=== PATIENT | female | born 1985 | race Caucasian/White ===

== ENCOUNTER 2016-10-14 19:11 | Emergency (ER) | payer MEDICARE, MEDICAID ==
[~2016-10-14] VITALS: Ht 165.1 cm; Wt 122.5 kg
[2016-10-14] MEDS ORDERED: NYST15CR (20:04)
[2016-10-14] MEDS ORDERED: LAMO100T (20:04)
[2016-10-14] MEDS ORDERED: LUBI24CA6 (20:04)
[2016-10-14] MEDS ORDERED: METO10TA3 (20:04)
[2016-10-14] MEDS ORDERED: SUMA50TA2 (20:04)
[2016-10-14] MEDS ORDERED: LISD60CA (20:04)
[2016-10-14] MEDS ORDERED: TIZA4TAB3 (20:04)
[2016-10-14] MEDS ORDERED: HYDR-3812 (20:04)
[2016-10-14] MEDS ORDERED: RISP4TAB2 (20:04)
[2016-10-14] MEDS ORDERED: FLUO10CA19 (20:04)
[2016-10-14] MEDS ORDERED: ZOLP10TA5 (20:04)
[2016-10-14] MEDS ORDERED: BUTA1TAB9 (20:04)
[2016-10-14] MEDS ORDERED: GABA-488 (20:04)
[2016-10-14] MEDS ORDERED: ORPHENADRINE 60 MG/2 ML (NORFLEX) AMP IV STA (20:15)
[2016-10-14] MEDS ORDERED: ONDANSETRON 4 MG/2 ML (SDV) Z0FRAN IVP ONE (20:15)
[2016-10-14] MEDS ORDERED: diphenhydrAMINE 50 MG/ML INJ (BENADRYL) IV STA (20:15)
[2016-10-14] MEDS ORDERED: KETOROLAC 30 MG/ML VIAL IVP STA (20:15)
[2016-10-14] MEDS ORDERED: NS IV 1000 ML 1,000 ML IV ONE (20:15)
--- NOTE | 2016-10-14 20:19 | ED Headache ---
General Chief Complaint: Head/Cervical Problems Stated Complaint: MIGRAINE Nursing Triage Note: HEADACHE Nursing Sepsis Screen: No Definite Risk Source: patient Exam Limitations: no limitations History of Present Illness Time seen by provider: 20:19 Initial Comments 31-year-old female patient presents to the emergency department with complaints of a migraine headache. States she has frequent migraine headaches, but Fioricet is not helping today. Reports symptoms are similar to usual migraines. Patient is scheduled to see a neurologist in October. Timing/Duration: waxing and waning Severity/Quality: throbbing Location: global Prior Headaches/Recent Trauma: frequent headaches Modifying Factors: worse with exposure to light, worse with medication (no improvement with Fioricet), worse with other (exposure to sound) Allergies and Home Medications Allergies Coded Allergies: amoxicillin (Verified Allergy, Unknown, 10/14/16) clavulanic acid (Verified Allergy, Unknown, 10/14/16) quetiapine (Verified Allergy, Unknown, 10/14/16) ropinirole (Verified Allergy, Unknown, 10/14/16) Home Medications Butalb/Acetaminophen/Caffeine 1 Each Tablet, #30 (Reported) Fluoxetine HCl 10 Mg Capsule, #15 (Reported) Gabapentin 300 Mg Capsule, #270 (Reported) Hydrocodone/Acetaminophen 1 Each Tablet, #30 (Reported) Lamotrigine 100 Mg Tablet, #60 (Reported) Lisdexamfetamine Dimesylate 60 Mg Capsule, #28 (Reported) Lubiprostone 24 Mcg Capsule, #60 (Reported) Metoclopramide HCl 10 Mg Tablet, #30 (Reported) Nystatin 15 Gm Cream..g., #30 (Reported) Ondansetron 8 Mg Tab.rapdis, 8 MG PO Q6H PRN for NAUSEA/VOMITING-1ST LINE, #10 Ref 0 Prescribed by: LAYNE JIMÉNEZ on 10/14/162052 Risperidone 4 Mg Tablet, #30 (Reported) Sumatriptan Succinate 50 Mg Tablet, #9 (Reported) Tizanidine HCl 4 Mg Tablet, #90 (Reported) Zolpidem Tartrate 10 Mg Tablet, #30 (Reported) Constitutional: No dizziness, No fever, No malaise Eyes: Denies Decreased Acuity, Photophobia, Denies Vision Changes, Glasses Ears, Nose, Mouth, Throat: denies ear pain, denies ear discharge, denies nose pain, denies nose discharge, denies mouth pain, denies loose teeth, denies throat pain Respiratory: no symptoms reported Cardiovascular: no symptoms reported Gastrointestinal: No abdominal pain, No diarrhea, loss of appetite, nausea, No vomiting Genitourinary: no symptoms reported Musculoskeletal: no symptoms reported Skin: no symptoms reported Psychiatric/Neurological: Headache, Denies Numbness, Denies Paresthesia, Denies Seizure, Denies Tingling, Denies Weakness All Other Systems Reviewed Negative Unless Noted: Yes (Negative excepted noted.) Past Mfrtjee-Nzfelh-Wjzevy Hx Patient Social History Alcohol Use: Denies Use Recreational Drug Use: No Smoking Status: Current Everyday Smoker Type Used: Cigarettes 2nd Hand Smoke Exposure: Yes Recent Foreign Travel: No Contact w/Someone Who Travel: No Recent Infectious Disease Expo: No Recent Hopitalizations: No Immunizations Up To Date Tetanus Booster (TDap): Unknown Seasonal Allergies Seasonal Allergies: No Surgeries HX Surgeries: Yes Surgeries: Appendectomy, Gallbladder, Orthopedic, Tonsillectomy Respiratory Hx Respiratory Disorders: No Cardiovascular Hx Cardiac Disorders: Yes Cardiac Disorders: High Cholesterol, Hypertension Neurological Hx Neurological Disorders: Yes Neurological Disorders: Headaches /Migraines Reproductive System : No (BC IMPLANT) Genitourinary Hx Genitourinary Disorders: No Gastrointestinal Hx Gastrointestinal Disorders: Yes Gastrointestinal Disorders: Gastroesophageal Reflux Musculoskeletal Hx Musculoskeletal Disorders: Yes Musculoskeletal Disorders: Arthritis, Chronic Back Pain Endocrine Hx Endocrine Disorders: No Psychosocial Hx Psychiatric Problems: Yes Behavioral Health Disorders: Anxiety, Bipolar, Personality Disorder, Depression Reviewed Nursing Assessment Reviewed/Agree w Nursing PMH: Yes Family Medical History Significant Family History: No Pertinent Family Hx Physical Exam Vital Signs Vital Sign - Last 12Hours 10/14/16 20:05 Temp 96.9 Pulse 116 Resp 18 B/P (MAP) 142/93 Pulse Ox 98 O2 Delivery Room Air Capillary Refill : Less Than 3 Seconds General Appearance: WD/WN, no apparent distress HEENT: PERRL/EOMI, normal ENT inspection, TMs normal, pharynx normal, photophobia Neck: non-tender, full range of motion, supple, normal inspection Cardiovascular: normal peripheral pulses, regular rate, rhythm, no edema, no murmur Respiratory: lungs clear, normal breath sounds, no respiratory distress Gastrointestinal: normal bowel sounds, non tender, soft, no organomegaly Back: normal inspection Extremities: normal inspection, no pedal edema, normal capillary refill Psychiatric: alert, oriented x 3 Crainal Nerves: normal hearing, normal speech, PERRL Coordination/Gait: normal finger to nose, normal gait, negative Romberg's sign Motor/Sensory: no motor deficit, no sensory deficit, no pronator drift Skin: normal color, warm/dry Progress/Results/Core Measures Results/Orders My Orders Orders - LAYNE JIMÉNEZ Iv 1000 Ml (Sodium Chloride 0.9%) (10/14/16 20:15) Ondansetron Injection (Zofran Injectio (10/14/16 20:15) Ketorolac Injection (Toradol Injection) (10/14/16 20:15) Orphenadrine Injection (Norflex Injectio (10/14/16 20:15) Diphenhydramine Injection (Benadryl Inje (10/14/16 20:15) Ketorolac Injection (Toradol Injection) (10/14/16 20:26) Orphenadrine Injection (Norflex Injectio (10/14/16 20:26) Ondansetron Oral Dissolve Tab (Zofran (10/14/16 20:26) Diphenhydramine Injection (Benadryl Inje (10/14/16 20:26) Im/Sub-Q Injection Non-Ab Ed (10/14/16 ) Vital Signs/I&O Vital Sign - Last 12Hours 10/14/16 10/14/16 20:05 21:01 Temp 96.9 96.9 Pulse 116 115 Resp 18 18 B/P (MAP) 142/93 Pulse Ox 98 99 O2 Delivery Room Air Room Air Blood Pressure Mean: 109 Departure Communication Progress Notes Patient reports improvement in symptoms with medications. Plan for discharge to home. All return precautions were discussed with the patient as described in the discharge instructions of this report. Patient voices understanding and agrees with the treatment plan. Impression Impression: Primary Impression: Migraine Qualified Codes: G43.909 - Migraine, unspecified, not intractable, without status migrainosus Disposition: HOME, SELF-CARE Condition: Improved Departure-Patient Inst. Decision time for Depature: 20:52 Referrals: NO,LOCAL PHYSICIAN (PCP/Family) Primary Care Physician Patient Instructions: Migraine Headache (DC) Add. Discharge Instructions: All discharge instructions reviewed with patient and/or family. Voiced understanding. Continue Fioricet as instructed by your physician. Drink plenty of fluids. Tylenol extra strength [id number] as directed for pain. Ibuprofen 800 mg by mouth every 8 hours as needed for pain. Follow-up with your family practitioner for recheck if no improvement in symptoms. Follow -up with the neurologist as previously scheduled. Return to the emergency department for worsened symptoms or any other concerns. Scripts Ondansetron (Ondansetron Odt) 8 Mg Tab.rapdis 8 MG PO Q6H Y for NAUSEA/VOMITING-1ST LINE, #10 TAB 0 Refills Prov: LAYNE JIMÉNEZ 10/14/16 Work/School Note: Work Release Form Date Seen in the Emergency Department: Oct 14, 2016 Return to Work: Oct 15, 2016 Restrictions: No Restrictions LAYNE JIMÉNEZ Oct 14, 2016 20:19
[2016-10-14] MEDS ORDERED: diphenhydrAMINE 50 MG/ML INJ (BENADRYL) IM STA (20:26)
[2016-10-14] MEDS ORDERED: ONDANSETRON 4 MG (ZOFRAN) ORAL DISSOLVE TAB SL STA (20:26)
[2016-10-14] MEDS ORDERED: KETOROLAC 60 MG/2 ML VIAL IM STA (20:26)
[2016-10-14] MEDS ORDERED: ORPHENADRINE 60 MG/2 ML (NORFLEX) AMP IM STA (20:26)
[2016-10-14] MEDS ORDERED: ONDA8TAB13 PO (20:53)
[2016-10-14 21:01] VITALS: BP 124/97
== END 2016-10-14 21:00 | disposition home or self-care (01) ==
LOC: EDUNIT# 19:11 → ER 19:13
DX: G43.909 Migraine, unspecified, not intractable, without status migrainosus (principal); F41.9 Anxiety disorder, unspecified; F31.9 Bipolar disorder, unspecified; F60.89 Other specific personality disorders; M19.90 Unspecified osteoarthritis, unspecified site; K21.9 Gastro-esophageal reflux disease without esophagitis; E78.00 Pure hypercholesterolemia, unspecified; I10 Essential (primary) hypertension; F17.210 Nicotine dependence, cigarettes, uncomplicated; Z90.49 Acquired absence of other specified parts of digestive tract; Z90.89 Acquired absence of other organs
CPT/HCPCS: 96372; 99284

== ENCOUNTER 2016-10-23 17:45 | Emergency (ER) | payer MEDICARE, MEDICAID ==
[~2016-10-23] VITALS: Ht 165.1 cm; Wt 122.5 kg
[~2016-10-23 17:45] MED LIST: BUTA1TAB9; FLUO10CA19; GABA-488; HYDR-3812; LAMO100T; LISD60CA; LUBI24CA6; METO10TA3; NYST15CR; ONDA8TAB13 PO; RISP4TAB2; SUMA50TA2; TIZA4TAB3; ZOLP10TA5
[2016-10-23] MEDS ORDERED: KETOROLAC 60 MG/2 ML VIAL IM ONE (18:15)
[2016-10-23] MEDS ORDERED: diphenhydrAMINE 50 MG/ML INJ (BENADRYL) IM ONE (18:15)
[2016-10-23] MEDS ORDERED: DEXAMETHASONE PF 10 MG/ML (DECADRON) VIAL IM ONE (18:15)
[2016-10-23] MEDS ORDERED: PROCHLORPERAZINE 10 MG/2ML INJ (COMPAZINE) IM ONE (18:15)
--- NOTE | 2016-10-23 18:20 | ED Headache ---
General Chief Complaint: Head/Cervical Problems Stated Complaint: MIGRAINE Nursing Triage Note: pt ambulated to room. pt complains of a severe migraine since yesterday. pt states she gets migraines often. Nursing Sepsis Screen: No Definite Risk Source: patient Exam Limitations: no limitations History of Present Illness Time seen by provider: 18:18 Initial Comments to ER with an occipital headache that began yesterday and is associated with nausea vomiting photophobia and also worsened by loud noises. She denies fevers or chills or head injury. She has a history of migraines and this feels similar. She states that she is scheduled to see a neurologist for these. She took her Fioricet at home without relief. Timing/Duration: 24 hours Severity/Quality: severe Location: occipital Prior Headaches/Recent Trauma: occasional headaches Modifying Factors: worse with exposure to light Associated Symptoms: nausea/vomiting Allergies and Home Medications Allergies Coded Allergies: amoxicillin (Verified Allergy, Unknown, 10/14/16) clavulanic acid (Verified Allergy, Unknown, 10/14/16) quetiapine (Verified Allergy, Unknown, 10/14/16) ropinirole (Verified Allergy, Unknown, 10/14/16) Home Medications Butalb/Acetaminophen/Caffeine 1 Each Tablet, #30 (Reported) Fluoxetine HCl 10 Mg Capsule, #15 (Reported) Gabapentin 300 Mg Capsule, #270 (Reported) Hydrocodone/Acetaminophen 1 Each Tablet, #30 (Reported) Lamotrigine 100 Mg Tablet, #60 (Reported) Lisdexamfetamine Dimesylate 60 Mg Capsule, #28 (Reported) Lubiprostone 24 Mcg Capsule, #60 (Reported) Metoclopramide HCl 10 Mg Tablet, #30 (Reported) Nystatin 15 Gm Cream..g., #30 (Reported) Ondansetron 8 Mg Tab.rapdis, 8 MG PO Q6H PRN for NAUSEA/VOMITING-1ST LINE, #10 Ref 0 Prescribed by: LAYNE JIMÉNEZ on 10/14/162052 Risperidone 4 Mg Tablet, #30 (Reported) Sumatriptan Succinate 50 Mg Tablet, #9 (Reported) Tizanidine HCl 4 Mg Tablet, #90 (Reported) Zolpidem Tartrate 10 Mg Tablet, #30 (Reported) Constitutional: see HPI Eyes: No Symptoms Reported, Photophobia Ears, Nose, Mouth, Throat: no symptoms reported Respiratory: no symptoms reported Cardiovascular: no symptoms reported Genitourinary: no symptoms reported Musculoskeletal: no symptoms reported Skin: no symptoms reported Psychiatric/Neurological: See HPI, Headache Past Vfqmbtn-Zxdsyb-Nwbzrt Hx Patient Social History Alcohol Use: Denies Use Recreational Drug Use: No Smoking Status: Current Everyday Smoker Type Used: Cigarettes 2nd Hand Smoke Exposure: Yes Recent Foreign Travel: No Contact w/Someone Who Travel: No Recent Infectious Disease Expo: No Recent Hopitalizations: Yes (elbow surgery 3 weeks ago) Immunizations Up To Date Tetanus Booster (TDap): Unknown Seasonal Allergies Seasonal Allergies: No Surgeries HX Surgeries: Yes Surgeries: Appendectomy, Gallbladder, Orthopedic, Tonsillectomy Respiratory Hx Respiratory Disorders: No Cardiovascular Hx Cardiac Disorders: Yes Cardiac Disorders: High Cholesterol, Hypertension Neurological Hx Neurological Disorders: Yes Neurological Disorders: Headaches /Migraines Genitourinary Hx Genitourinary Disorders: No Gastrointestinal Hx Gastrointestinal Disorders: Yes Gastrointestinal Disorders: Gastroesophageal Reflux Musculoskeletal Hx Musculoskeletal Disorders: Yes Musculoskeletal Disorders: Arthritis, Chronic Back Pain Endocrine Hx Endocrine Disorders: No Psychosocial Hx Psychiatric Problems: Yes Behavioral Health Disorders: Anxiety, Bipolar, Personality Disorder, Depression Family Medical History Significant Family History: No Pertinent Family Hx Physical Exam Vital Signs Vital Sign - Last 12Hours 10/23/16 17:55 Temp 97.2 Pulse 99 Resp 18 B/P (MAP) 125/79 Pulse Ox 97 O2 Delivery Room Air Capillary Refill : Less Than 3 Seconds General Appearance: WD/WN, no apparent distress, obese HEENT: PERRL/EOMI, normal ENT inspection Neck: non-tender, full range of motion Cardiovascular: regular rate, rhythm, no murmur Respiratory: normal breath sounds, no respiratory distress, no accessory muscle use Gastrointestinal: normal bowel sounds, non tender, soft Extremities: normal range of motion, non-tender Psychiatric: alert, oriented x 3 Crainal Nerves: normal hearing, normal speech, PERRL Skin: normal color, warm/dry Progress/Results/Core Measures Results/Orders My Orders Orders - GALLO LUNA APRN Ketorolac Injection (Toradol Injection) (10/23/16 18:15) Dexamethasone Pf Injection (Decadron Pf (10/23/16 18:15) Prochlorperazine Injection (Compazine In (10/23/16 18:15) Diphenhydramine Injection (Benadryl Inje (10/23/16 18:15) Vital Signs/I&O Vital Sign - Last 12Hours 10/23/16 17:55 Temp 97.2 Pulse 99 Resp 18 B/P (MAP) 125/79 Pulse Ox 97 O2 Delivery Room Air Blood Pressure Mean: 94 Departure Impression Impression: Primary Impression: Headache Disposition: 01 HOME, SELF-CARE Condition: Stable Departure-Patient Inst. Decision time for Depature: 18:19 Referrals: NO,LOCAL PHYSICIAN (PCP/Family) Primary Care Physician Patient Instructions: Migraine Headache (DC) Add. Discharge Instructions: 1. Return to ER for any concerns 2. Follow-up with your doctor next week 3. All discharge instructions reviewed with patient and/or family. Voiced understanding. GALLO LUNA FORKLIFT OPERATOR Oct 23, 2016 18:20
[2016-10-23 19:17] VITALS: BP 133/85
== END 2016-10-23 19:17 | disposition home or self-care (01) ==
LOC: EDUNIT# 17:45 → ER 17:47
DX: R51 Headache (principal); F41.9 Anxiety disorder, unspecified; F31.9 Bipolar disorder, unspecified; F60.9 Personality disorder, unspecified; K21.9 Gastro-esophageal reflux disease without esophagitis; E78.00 Pure hypercholesterolemia, unspecified; I10 Essential (primary) hypertension; Z90.89 Acquired absence of other organs; Z90.49 Acquired absence of other specified parts of digestive tract
CPT/HCPCS: 99284

== ENCOUNTER 2016-11-03 10:00 | Outpatient (RCR) | payer MEDICARE, MEDICAID ==
[~2016-11-03 10:00] MED LIST changes: -BUTA1TAB9; +BUTA1TAB9 PO; -FLUO10CA19; +FLUO10CA19 PO; -GABA-488; +GABA-488 PO; -LAMO100T; +LAMO100T PO; -LISD60CA; +LISD60CA PO; -LUBI24CA6; +LUBI24CA6 PO; -RISP4TAB2; +RISP4TAB2 PO; -TIZA4TAB3; +TIZA4TAB3 PO; -ZOLP10TA5; +ZOLP10TA5 PO
[2016-11-04] MEDS ORDERED: ATOM25CA5 PO (10:48)
[2016-11-04] MEDS ORDERED: METF500T8 PO (10:48)
[2016-11-04] MEDS ORDERED: ONDA8TAB13 PO (12:05)
[2016-12-26] MEDS ORDERED: NICO-588 TD (15:01)
== END 2016-11-15 11:10 | disposition home or self-care (01) ==
DX: M25.521 Pain in right elbow (principal); Z98.890 Other specified postprocedural states

== ENCOUNTER 2016-11-04 10:17 | Emergency (ER) | payer MEDICARE, MEDICAID ==
[~2016-11-04] VITALS: Ht 165.1 cm; Wt 122.5 kg
[~2016-11-04 10:17] MED LIST changes: +BUTA1TAB9; -BUTA1TAB9 PO; +FLUO10CA19; -FLUO10CA19 PO; +GABA-488; -GABA-488 PO; +LAMO100T; -LAMO100T PO; +LUBI24CA6; -LUBI24CA6 PO; +RISP4TAB2; -RISP4TAB2 PO; +TIZA4TAB3; -TIZA4TAB3 PO; +ZOLP10TA5; -ZOLP10TA5 PO
--- OUTSIDE RECORDS SUMMARY | 2016-11-04 10:26 | XMS REPORT | Encounter Summary ---
Author Author [facility] Organization [facility] Address Unknown Phone Unavailable Care Team Providers Care Reefer Truck Driver Name Role Phone PCP Unavailable Reason for Visit * Reason Comments Pre-Visit Planning Dr Caballero 11/08/16 Encounter Details Date Type Department Care Team Description 10/25/2016 Telephone [facility] Meseret Caballero MBBS Pre-Visit Planning ([facility] Neurology [address] [facility] [place] 11/08/16) [address] [place] [address] [place] [address] [phone] Social History Tobacco Use Types Packs/Day Years Used Date Current Every Day Smoker 0.5 12 Smokeless Tobacco: Never Used Alcohol Use Drinks/Week oz/Week Comments Yes 0 Standard 0.0 drinks or equivalent Sex Assigned at Date Recorded Not on file as of this encounter Functional Status Functional Status Response Date of Assessment Does the patient have a hearing impairment: No 02/03/2016 Does the patient have a visual impairment: Yes 02/03/2016 Does the patient have impaired ambulation: Yes 02/03/2016 Does the patient have an activity of daily living No 02/03/2016 (ADL) impairment: Does the patient have an instrumental activity of Yes 02/03/2016 daily living (IADL) impairment: Cognitive Status Response Date of Assessment Does the patient have a cognitive impairment: No 02/03/2016 as of this encounter Plan of Treatment Not on fileas of this encounter Visit Diagnoses Not on filein this encounter
--- OUTSIDE RECORDS SUMMARY | 2016-11-04 10:26 | XMS REPORT ---
Author Author [facility] Medical Staff Organization [facility] Address [address] [place], [place] [id number] Phone [phone] Care Team Providers Care Rubber Calender Helper Name Role Phone DENICE OCHOA MD, PP [phone] Summary purpose TRANSITION OF CARE AUTO GENERATION Chief Complaint and Reason for Visit No authorized Reason for Visit (Admitting Diagnosis) is available for this visit. Problem list No authorized problems tracked for continuity of care are available for this visit. Encounters No authorized problems tracked for encounter diagnoses are available for this visit. Medications No medications recorded for this patient visit Allergies, adverse reactions, alerts Allergen Category Ingredient Status Reaction Severity Onset Seroquel Drug Allergy Seroquel Confirmed or Verified Seroquel Drug Allergy quetiapine Confirmed or Verified Amoxil Drug Allergy Amoxil Confirmed or Verified Amoxil Drug Allergy Amoxicillin Confirmed or Verified Augmentin Drug Allergy Augmentin Confirmed or Verified Augmentin Drug Allergy Potassium Clavulanate Confirmed or Verified Augmentin Drug Allergy Amoxicillin Confirmed or Verified Fanapt Drug Allergy Fanapt Confirmed or Verified Fanapt Drug Allergy Iloperidone Confirmed or Verified amitriptyline Drug Allergy amitriptyline Confirmed or Verified Immunizations No immunizations recorded for this patient visit Relevant diagnostic tests and/or laboratory data No authorized results are available for this patient visit History of procedures Procedure Code Code Type Description Date Performed Performing Physician [id number] CPT-4 AMBULANCE RESPONSE/TREATMENT 06-23-2015 DENICE OCHOA Functional status No functional or cognitive status observations are available for this visit. Vital signs No authorized vital signs are available for this visit. Social history No Social History or smoking status observations were recorded for this visit. ( Unknown if ever smoked.) Treatment Plan No treatment plan text is available for this visit. Hospital discharge instructions No discharge instruction text is available for this visit.
--- OUTSIDE RECORDS SUMMARY | 2016-11-04 10:26 | XMS REPORT | Clinical Summary ---
Author Author [facility] Organization [facility] Address Unknown Phone Unavailable Care Team Providers Care Solar Field Installation Crew Member Name Role Phone PCP Unavailable Source Comments Some departments are not documenting in the electronic medical record. If you do not see the information that you expected, contact Release of Information in the Health Information Management department at [phone] for further assistance in locating additional records.[facility] Allergies Active Allergy Reactions Severity Noted Date Comments Amitriptyline MENTAL STATUS CHANGES Medium 06/24/2015 Amoxicillin VOMITING Low 12/22/2014 Amoxicillin-Pot VOMITING Low 12/22/2014 Clavulanate Iloperidone PALPITATIONS Low 12/22/2014 Ropinirole SEE COMMENTS Low 06/24/2015 Makes her very weak and can not stand Quetiapine SEE COMMENTS Low 12/22/2014 Unable to swallow Current Medications Prescription Sig. Disp. Refills Start End Date Status Date omeprazole DR(+) Take 20 mg by mouth Active (PRILOSEC) 20 mg capsule daily. ranitidine(+) (ZANTAC) Take 150 mg by mouth Active 150 mg tablet twice daily. SUMAtriptan (IMITREX) 50 Take 25 mg by mouth every Active mg tablet 4 hours as needed for Migraine symptoms (up to 100mg). OXYGEN-AIR DELIVERY Use as directed. Active SYSTEMS (HORIZON NASAL CPAP SYSTEM MISC) vilazodone 10 mg tab Take by mouth daily. Active clonazePAM (KLONOPIN) 1 Take 1 mg by mouth three Active mg tablet times daily. tiZANidine (ZANAFLEX) 4 Take 1 Tab by mouth three 90 Tab 5 01/26/20 Active mg tablet times daily. 16 gabapentin (NEURONTIN) Take 900mg by mouth in 270 Cap 5 05/27/19 Active 300 mg AM, 900mg at Noon, and 17 capsuleIndications: 900mg at bedtime. NEUROPATHIC PAIN Indications: NEUROPATHIC PAIN verapamil (ISOPTIN) 80 mg Take 180 mg by mouth Active tablet twice daily. lamoTRIgine (LAMICTAL) Take 100 mg by mouth Active 100 mg tablet twice daily. lisdexamfetamine(+) Take 60 mg by mouth every Active (VYVANSE) 60 mg capsule morning zolpidem (AMBIEN) 10 mg Take 10 mg by mouth at Active tablet bedtime as needed for Sleep. risperiDONE (RISPERDAL) 4 Take 4 mg by mouth daily. Active mg tablet fluoxetine (PROZAC) 10 mg Take 10 mg by mouth every Active capsule 48 hours. Active Problems Problem Noted Date HTN (hypertension) 06/25/2015 Depression 06/25/2015 Anxiety 06/25/2015 Nonepileptic episode (HCC) 06/25/2015 Obesity, morbid, BMI 40.0-49.9 (HCC) 06/25/2015 Seizures (HCC) 06/24/2015 Convulsion (HCC) 06/24/2015 Bilateral low back pain with left-sided sciatica 12/22/2014 Encounters Date Type Specialty Care Team Description 10/30/2016 Ancillary Radiology Outpatient, Radiologist Diagnosis unknown Orders 10/25/2016 Telephone Neurology Meseret Caballero MBBS Pre-Visit Planning (Dr Caballero 11/08/16) 08/10/2016 Hospital Radiology Encounter from Last 3 Months Family History Medical History Relation Name Comments Stroke Maternal Grandfather Relation Name Status Comments Father Alive Maternal Grandfather Mother Alive Social History Tobacco Use Types Packs/Day Years Used Date Current Every Day Smoker 0.5 12 Smokeless Tobacco: Never Used Tobacco Cessation: Ready to Quit: Yes Alcohol Use Drinks/Week oz/Week Comments Yes 0 Standard 0.0 drinks or equivalent Sex Assigned at Date Recorded Not on file Last Filed Vital Signs Vital Sign Reading Time Taken Blood Pressure 125/90 07/06/2016 8:32 AM CDT Pulse 92 07/06/2016 8:32 AM CDT Temperature 36.7 C (98 F) 11/29/2015 9:40 AM CDT Respiratory Rate 16 07/06/2016 8:32 AM CDT Oxygen Saturation 98% 07/06/2016 8:32 AM CDT Inhaled Oxygen - - Concentration Weight 117.9 kg (260 lb) 07/06/2016 8:32 AM CDT Height 165.1 cm (5' 5") 07/06/2016 8:32 AM CDT Body Mass Index 43.27 07/06/2016 8:32 AM CDT Plan of Treatment Health Maintenance Due Date Last Done Comments PHYSICAL (COMPREHENSIVE) 1994 EXAM PERTUSSIS VACCINE 1998 TETANUS VACCINE 2004 CERVICAL CANCER SCREENING 2008 INFLUENZA VACCINE 11/17/2016 Results * MRI C-SPINE EXTERNAL IMAGING (08/10/2016) Narrative This order has been auto finalized and does not contain a result. from Last 3 Months
--- OUTSIDE RECORDS SUMMARY | 2016-11-04 10:26 | XMS REPORT | Encounter Summary ---
Author Author [facility] Organization [facility] Address Unknown Phone Unavailable Care Team Providers Care Dental Treatment Coordinator Name Role Phone PCP Unavailable Encounter Details Date Type Department Care Team Description 10/30/2016 Ancillary Rad Outpatient, Radiologist Diagnosis unknown Orders [address] [place] [address] Social History Tobacco Use Types Packs/Day Years [...] Treatment Not on fileas of this encounter Results * MRI C-SPINE EXTERNAL IMAGING (08/10/2016) Narrative This order has been auto finalized and does not contain a result. * CT HEAD EXTERNAL IMAGING (07/20/2015) Narrative This order has been auto finalized and does not contain a result. * CT HEAD EXTERNAL IMAGING (05/12/2015) Narrative This order has been auto finalized and does not contain a result. * MRI HEAD EXTERNAL IMAGING (03/17/2015) Narrative This order has been auto finalized and does not contain a result. * CT HEAD EXTERNAL IMAGING (03/11/2015) Narrative This order has been auto finalized and does not contain a result. in this encounter Visit Diagnoses Diagnosis Diagnosis unknown Other unknown and unspecified cause of morbidity or mortality in this encounter
--- OUTSIDE RECORDS SUMMARY | 2016-11-04 10:26 | XMS REPORT | Encounter Summary ---
Author Author [facility] Organization [facility] Address Unknown Phone Unavailable Care Team Providers Care Appliance Repair Technician Name Role Phone PCP Unavailable Encounter Details Date Type Department Care Team Description 08/10/2016 Hospital [facility] Radiology [address] [place] [address] Social History Tobacco Use Types Packs/Day Years Used Date Current Every Day Smoker 0.5 12 Sex Assigned at Date Recorded Not on [...] impairment: No 02/03/2016 as of this encounter Medications at Time of Discharge Medication Sig. Disp. Refills Start Date End Date clonazePAM (KLONOPIN) 1 Take 1 mg by mouth three mg tablet times daily. gabapentin (NEURONTIN) Take 900mg by mouth in 270 Cap 5 05/26/2016 300 mg AM, 900mg at Noon, and capsuleIndications: 900mg at bedtime. NEUROPATHIC PAIN Indications: NEUROPATHIC PAIN lamoTRIgine (LAMICTAL) Take 100 mg by mouth 100 mg tablet twice daily. lisdexamfetamine(+) Take 60 mg by mouth every (VYVANSE) 60 mg capsule morning omeprazole DR(+) Take 20 mg by mouth (PRILOSEC) 20 mg capsule daily. OXYGEN-AIR DELIVERY Use as directed. SYSTEMS (HORIZON NASAL CPAP SYSTEM MISC) ranitidine(+) (ZANTAC) Take 150 mg by mouth 150 mg tablet twice daily. risperiDONE (RISPERDAL) 4 Take 4 mg by mouth daily. mg tablet SUMAtriptan (IMITREX) 50 Take 25 mg by mouth every mg tablet 4 hours as needed for Migraine symptoms (up to 100mg). tiZANidine (ZANAFLEX) 4 Take 1 Tab by mouth three 90 Tab 5 01/26/2016 mg tablet times daily. verapamil (ISOPTIN) 80 mg Take 180 mg by mouth tablet twice daily. vilazodone 10 mg tab Take by mouth daily. zolpidem (AMBIEN) 10 mg Take 10 mg by mouth at tablet bedtime as needed for Sleep. as of this encounter Plan of Treatment Not on fileas of this encounter Results * MRI C-SPINE EXTERNAL IMAGING (08/10/2016) Narrative This order has been auto finalized and does not contain a result. in this encounter Visit Diagnoses Diagnosis Diagnosis unknown Other unknown and unspecified cause of morbidity or mortality in this encounter
--- OUTSIDE RECORDS SUMMARY | 2016-11-04 10:30 | XMS REPORT | Clinical Summary ---
Author Author Admin, E Organization [employer] Address Unknown Phone Unavailable Allergies, Adverse Reactions, Alerts Allergy Name Reaction Description Start Date Severity Status Provider REQUIP Unsure of reaction, states that she was in severe pain Critical Active Ahmet Carbajal MD AMITRIPTYLINE HCL Mood changes. LDA MA Critical Active Vishal Hui MD FANAPT heart palpitations Critical Active Vishal Hui MD SEROQUEL Critical Active Vishal Hui MD AUGMENTIN Critical Active Vishal Hui MD AMOXICILLIN Critical Active Vishal Hui MD Conditions or Problems Problem Name Problem Code Onset Date Status Entry Date Provider Comment Standard Description Annotate Asthma 493.90 Active Vishal Hui MD Asthma, unspecified Anxiety Disorder 300.00 Resolved Vishal Hui MD Anxiety state, unspecified Depression 311 Inactive Vishal Hui MD Depressive disorder, not elsewhere classified Depression/anxiety 300.4 Active Vishal Hui MD Dysthymic disorder Hypertension 401.9 Active Vishal Hui MD Unspecified essential hypertension Pneumonia, organism unspecified 486 Resolved Vishal Hui MD Pneumonia, organism unspecified Flank pain, right 789.09 Resolved Vishal Hui MD Abdominal pain, other specified site; multiple sites G E R D 530.81 Resolved Vishal Hui MD Esophageal reflux Health screening V70.0 Resolved Suzan Boo APRN Routine general medical examination at a health care facility Sinus tachycardia 427.89 Resolved Suzan Boo APRN Other specified cardiac dysrhythmias Schizoaffective disorder 295.70 Active Vishal Hui MD Schizoaffective disorder, unspecified Irritable bowel syndrome 564.1 Active Vishal Hui MD Irritable bowel syndrome Low back pain, chronic 724.2 Inactive Vishal Hui MD Lumbago Back pain, lumbar, with radiculopathy 724.4 Active Vishal Hui MD Thoracic or lumbosacral neuritis or radiculitis, unspecified Obstructive sleep apnea 327.23 Active Vishal Hui MD Obstructive sleep apnea (adult) (pediatric) Smoker/tobacco use disorder-smoking cessation discussed 305.1 Resolved Vishal Hui MD Tobacco use disorder Abdominal pain 789.00 Resolved Vishal Hui MD Abdominal pain, unspecified site Cellulitis 682.9 Resolved Vishal Hui MD Cellulitis and abscess of unspecified sites Pelvic pain 625.9 Resolved Vishal Hui MD Unspecified symptom associated with female genital organs Abscess, skin 682.9 Resolved Vishal Hui MD Cellulitis and abscess of unspecified sites Physical examination V70.0 Resolved Vishal Hui MD Routine general medical examination at a health care facility Vaginitis 616.10 Resolved Vishal Hui MD Vaginitis and vulvovaginitis, unspecified Mrsa infection 041.12 Resolved Vishal Hui MD Methicillin resistant Staphylococcus aureus infection in conditions classified elsewhere and of unspecified site Fatigue 780.79 Resolved Vishal Hui MD Other malaise and fatigue Fatigue 780.79 Resolved Vishal Hui MD Other malaise and fatigue Vitamin B12 deficiency 266.2 Active Marlena Trevino Other B-complex deficiencies Vaginitis, candidal 112.1 Resolved Vishal Hui MD Candidiasis of vulva and vagina Other abnormal blood chemistry 790.6 Resolved Vishal Hui MD Other abnormal blood chemistry Boils, recurrent 680.9 Resolved Vishal Hui MD Carbuncle and furuncle of unspecified site Postconcussion syndrome 310.2 Resolved Vishal Hui MD Postconcussion syndrome Nevus, atypical 216.9 Resolved Vishal Hui MD Benign neoplasm of skin, site unspecified Encounter for removal of sutures V58.32 Resolved Vishal Hui MD Encounter for removal of sutures Hot flashes 627.2 Resolved Vishal Hui MD Symptomatic menopausal or female climacteric states Gastroesophageal reflux disease 530.81 Active Vishal Hui MD Esophageal reflux Personality change 301.9 Resolved Vishal Hui MD Unspecified personality disorder Leukocytosis 288.60 Resolved Vishal Hui MD Leukocytosis, unspecified UTI 599.0 Resolved Vishal Hui MD Urinary tract infection, site not specified Headache, atypical 784.0 Resolved Albert Caldera MD Headache Elevated blood glucose 790.29 Resolved Vishal Hui MD Other abnormal glucose Polyarthralgia 719.49 Active Vishal Hui MD Pain in joint involving multiple sites Morbid obesity 278.01 Active Juliet Kimbrough APRN Morbid obesity 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 Active Juliet Kimbrough APRN Dependence on other enabling machines and devices Gait unsteady 781.2 Resolved Albert Caldera MD Abnormality of gait Lipoma 214.9 Resolved Albert Caldera MD Lipoma, unspecified site Abdominal pain, RUQ 789.01 Resolved Albert Caldera MD Abdominal pain, right upper quadrant Chest pain, acute 786.50 Resolved Albert Caldera MD Unspecified chest pain Localized adiposity 278.1 Resolved Vishal Hui MD Localized adiposity Shortness of breath 786.05 Resolved Vishal Hui MD Shortness of breath Nocturnal hypoxia 799.02 Resolved Suzan Boo APRN Hypoxemia Neck pain 723.1 Resolved Vishal Hui MD Cervicalgia Vaginal discharge 623.5 Resolved Vishal Hui MD Leukorrhea, not specified as infective Abdominal pain, right lower quadrant 789.03 Resolved Vishal Hui MD Abdominal pain, right lower quadrant Calf pain, left 729.5 Resolved Vishal Hui MD Pain in limb Asthma, acute 493.92 Resolved Vishal Hui MD Asthma, unspecified with (acute) exacerbation Upper respiratory infection 465.9 Resolved Suzan Boo APRN Acute upper respiratory infections of unspecified site Other fracture of upper and lower end of left fibula, initial encounter for closed fracture 823.01 Resolved Suzan Boo APRN Closed fracture of upper end of fibula Vaginal discharge 623.5 Resolved Suzan Boo APRN Leukorrhea, not specified as infective DYSURIA 788.1 Resolved Suzan Boo APRN Dysuria Contraceptive management V25.09 Active Dipika Burgos MD Encounter for other general counseling and advice on contraceptive management Cellulitis and abscess of breast 611.0 Resolved Ahmet Carbajal MD Inflammatory disease of breast Cigarette smoker 305.1 Active Ahmet Carbajal MD Tobacco use disorder Nondisplaced transverse fracture of shaft of left fibula, subsequent encounter for closed fracture with routine healing Resolved Suzan Boo APRN Bronchitis, acute 466.0 Resolved Ahmet Carbajal MD Acute bronchitis Generalized anxiety disorder 300.02 Active Ahmet Carbajal MD Generalized anxiety disorder [employer] well woman exam V72.31 Active Suzan Boo APRN Routine gynecological examination Bronchitis, acute with mild bronchospasm 466.0 Active Suzan Boo APRN Acute bronchitis Fibrocystic breast changes 610.1 Active Suzan Boo APRN Diffuse cystic 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 Suzan Boo APRN Other specified conditions influencing health status Tracheitis 464.10 Active Renzo Thornton DO Acute tracheitis without mention of obstruction Impetigo 684 Active Renzo Thornton DO Impetigo Anxiety Disorder ICD-300.00 Inactive Vishal Hui MD Pneumonia, organism unspecified ICD-486 Inactive Vishal Hui MD Flank pain, right ICD-789.09 Inactive Vishal Hui MD G E R D ICD-530.81 Inactive Vishal Hui MD Health screening ICD-V70.0 Inactive Suzan Boo APRN Sinus tachycardia ICD-427.89 Inactive Suzan Boo APRN Smoker/tobacco use disorder-smoking cessation discussed ICD-305.1 Inactive Vsihal Hui MD Abdominal pain ICD-789.00 Jim Hui MD Cellulitis ICD-682.9 Inactive Vishal Hui MD Pelvic pain ICD-625.9 Inactive Vishal Hui MD Abscess, skin ICD-682.9 Inactive Vishal Hui MD Physical examination ICD-V70.0 Jim Hui MD Vaginitis ICD-616.10 Jim Hui MD 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 Jim Hui MD Fatigue ICD-780.79 Jim Hui MD 2014 Vaginitis, candidal ICD-112.1 Jim Hui MD Other abnormal blood chemistry ICD-790.6 Jim Hui MD Boils, recurrent ICD-680.9 Jim Hui MD Postconcussion syndrome ICD-310.2 Jim Hui MD Nevus, 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 Jim Hui MD Encounter for removal of sutures ICD-V58.32 Jim Hui MD Hot flashes ICD-627.2 Jim Hui MD Personality change ICD-301.9 Jim Hui MD Leukocytosis ICD-288.60 Jim Hui MD UTI ICD-599.0 Inactive Vishal Hui MD Headache, atypical ICD-784.0 Inactive Albert Caldera MD Elevated blood glucose ICD-790.29 Inactive Vishal Hui MD Gait unsteady ICD-781.2 Inactive Albert Caldera MD Lipoma ICD-214.9 Inactive Albert Caldera MD Abdominal pain, RUQ ICD-789.01 Inactive Albert Caldera MD Chest pain, acute ICD-786.50 Inactive Albert Caldera MD Localized adiposity ICD-278.1 Inactive Vishal Hui MD Shortness of breath ICD-786.05 Inactive Vishal Hui MD Nocturnal hypoxia ICD-799.02 Inactive Suzan Boo APRN Neck pain ICD-723.1 Inactive Vishal Hui MD Vaginal discharge ICD-623.5 Inactive Vishal Hui MD Abdominal pain, right lower quadrant ICD-789.03 Inactive Vishal Hui MD Calf pain, left ICD-729.5 Inactive Vishal Hui MD Asthma, acute ICD-493.92 Inactive Vishal Hui MD Upper respiratory infection ICD-465.9 Inactive Suzan Boo APRN Other fracture of upper and lower end of left fibula, initial encounter for closed fracture ICD-823.01 Inactive Suzan Boo APRN Vaginal discharge ICD-623.5 Inactive Suzan Boo APRN DYSURIA ICD-788.1 Inactive Suzan Boo APRN Cellulitis and abscess of breast ICD-611.0 Inactive Ahmet Carbajal MD Nondisplaced transverse fracture of shaft of left fibula, subsequent encounter for closed fracture with routine healing Inactive Suzan Boo APRN Bronchitis, acute ICD-466.0 Inactive Ahmet Carbajal MD Medication List Medication Instructions Start Date Stop Date Generic Name NDC Status Provider Patient Instruction KEFLEX 500 MG CAP 1 po qid CEPHALEXIN 80538829366 Active Renzo Thornton DO Active ACETAMINOPHEN-CODEINE 120-12 MG/5ML SOLN 5 ml by mouth every 4-6 hours if needed for cough ACETAMINOPHEN-CODEINE 85631979565 Active Renzo Thornton DO Active PREDNISONE 20 MG TAB 1 tablet daily x 4 days PREDNISONE 35840026474 Active Renzo Thornton DO Active FLOVENT HFA 110 MCG/ACT AERO 2 puffs inhaled b.i.d. FLUTICASONE PROPIONATE HFA 23810845566 Active Renzo Thornton DO Active TROPICAMIDE 0.5 % OPHTH SOLN 1 drop PRN eye spasms TROPICAMIDE 42485686680 Active Samantha Stephan RMA Active RISPERDAL 4 MG ORAL TABS 1 tab at bedtime RISPERIDONE 40490494102 Active Samantha Stephan RMA Active LEVAQUIN 500 MG TABS 1 daily for infection LEVOFLOXACIN 06403775906 Active Suzan Boo APRN Active TESSALON PERLES 100 MG CAPS 1 three times a day as needed for cough BENZONATATE 66911536209 Active Suzan Boo APRN Active ZOFRAN 4 MG TABS 1 po q6hr PRN Nausea ONDANSETRON HCL No Longer Active Suzan Boo APRN Active FLUTICASONE PROPIONATE 50 MCG/ACT SUSP 2 sprays each nostril daily before bed. FLUTICASONE PROPIONATE 80145144829 No Longer Active Suzan Boo APRN Active ASPIRIN 325 MG ORAL TABS 1 tab q.d ASPIRIN 36260833373 No Longer Active Suzan Boo APRN Active HALOPERIDOL 10 MG ORAL TABS 1 tab q.d HALOPERIDOL 52907331681 No Longer Active Suzan Boo APRN Active GUAIFENESIN-CODEINE 100-10 MG/5ML SYRP 5ml every 4 to 6 hours as needed for cough GUAIFENESIN-CODEINE 31081422014 No Longer Active Suzan Boo APRN Active ZITHROMAX Z-EARNEST 250 MG TABS 2 today and then 1 daily for 4 days AZITHROMYCIN 18389317341 No Longer Active Suzan Boo APRN Active PREDNISONE 10 MG TABS 2 daily for 5 days then 1 daily for 5 days PREDNISONE 95557404617 Active Suzan Boo APRN Active CLONAZEPAM 1 MG ORAL TABS 1 twice a day and an additional 1 tablet every other day as needed for pseudoseizures or anxiety CLONAZEPAM 88171152014 Active Ahmet Carbajal MD Active HYDROCODONE-ACETAMINOPHEN 5-325 MG ORAL TABS 1 tab two times a day HYDROCODONE-ACETAMINOPHEN 51422842060 No Longer Active Ahmet Carbajal MD Active LAMICTAL 100 MG ORAL TABS 1 tab 2 times qd. LAMOTRIGINE 84087892143 Active Ahmet Carbajal MD Active PREDNISONE 20 MG TABS 2 daily for 5 days then 1 daily for 5 days PREDNISONE 17110443063 No Longer Active Ahmet Carbajal MD Active FLUTICASONE PROPIONATE 50 MCG/ACT SUSP 1 to 2 sprays each nostril daily for allergies FLUTICASONE PROPIONATE 16450294230 Active Tila Nicolas Active BENADRYL 25 MG CAP 4 po at bedtime for insomnia DIPHENHYDRAMINE HCL 59770079608 No Longer Active Ahmet Carbajal MD Active ADVAIR DISKUS 250-50 MCG/DOSE INH AEPB 1 puff twice a day for asthma FLUTICASONE-SALMETEROL 07045535603 No Longer Active Ahmet Carbajal MD Active KLONOPIN 1 MG ORAL TABS 1 tab po TID CLONAZEPAM 17294567315 No Longer Active Ahmet Carbajal MD Active ABILIFY MAINTENA 400 MG IM SUSR 400mg injection every 26 days ARIPIPRAZOLE 99586188483 No Longer Active Ahmet Carbajal MD Active TRAMADOL HCL 50 MG TABS 1/2-1 tab TID PRN TRAMADOL HCL 47875983228 No Longer Active Ahmet Carbajal MD Active BACTRIM DS 800-160 MG TABS 1 twice a day SULFAMETHOXAZOLE- TRIMETHOPRIM 38002711605 No Longer Active Ahmet Carbajal MD Active PROAIR HFA 108 (90 BASE) MCG/ACT AERS 2 puffs four times a day as needed 2015 ALBUTEROL SULFATE 84415235174 Active Ahmet Carbajal MD Active EQ NICOTINE 21 MG/24HR TRANS PT24 Apply daily to stop smoking NICOTINE 97687057193 Active Ahmet Carbajal MD Active MONISTAT 7 COMBO PACK WOODROW 100 & 2 MG-% (9GM) VAG KIT 1 applicatorful per vagina q pm x 7 MICONAZOLE NITRATE 73742482084 No Longer Active Ahmet Carbajal MD Active FLAGYL 500 MG TAB 1 tablet by mouth bid METRONIDAZOLE 73710175551 No Longer Active Ahmet Carbajal MD Active OXYCODONE HCL ER 10 MG ORAL T12A 1/2 tab by mouth every 4 hours prn OXYCODONE HCL 68772925657 No Longer Active Ahmet Carbajal MD Active METHYLPREDNISOLONE 4 MG ORAL TABS po daily METHYLPREDNISOLONE 47162493058 No Longer Active Ahmet Carbajal MD Active LEVOFLOXACIN 500 MG ORAL TABS po daily LEVOFLOXACIN 44241804594 No Longer Active Ahmet Carbajal MD Active VIIBRYD 10 MG ORAL TABS Take 1 tablet once a day VILAZODONE HCL 89853547644 No Longer Active Ahmet Carbajal MD Active TOPAMAX 50 MG ORAL TABS 1 tab twice daily TOPIRAMATE 12434419488 No Longer Active Ahmet Carbajal MD Active DICLOFENAC SODIUM 50 MG TBEC 1 tablet by mouth four times daily PRN Pain 2015 DICLOFENAC SODIUM 41871404072 No Longer Active Ahmet Carbajal MD Active ADZENYS XR-ODT 6.3 MG ORAL TBED 1 tab po daily for ADHD AMPHETAMINE 84229779613 No Longer Active Ahmet Carbajal MD Active CHANTIX 1 MG TABS 1 twice a day to help quit smoking VARENICLINE TARTRATE 13724031598 No Longer Active Dipika Burgos MD Active CHANTIX STARTING MONTH EARNEST 0.5 MG X 11 & 1 MG X 42 TABS take as directed 2015 VARENICLINE TARTRATE 80913993760 No Longer Active Dipika Burgos MD Active TESSALON PERLES 100 MG CAP 1 to 2 tablets by mouth 3 times daily as needed for cough BENZONATATE 69250191585 No Longer Active 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 APRN Active IMITREX 50 MG ORAL TABS 0.5 po x 1 PRN Headache. May repeat dose x 1 in 2 hours if needed SUMATRIPTAN SUCCINATE 48419886793 Active Ahmet Carbajal MD Active HYDROCODONE-ACETAMINOPHEN 5-325 MG TABS 1 to 2 four times a day as needed for pain use until can be seen by specialist HYDROCODONE- ACETAMINOPHEN 88020645454 No Longer Active Vishal Hui MD Active PROAIR HFA 108 (90 BASE) MCG/ACT AERS 2 puffs four times a day as needed 2015 ALBUTEROL SULFATE 45223518604 No Longer Active Vishal Hui MD Active PREDNISONE 20 MG TABS 2 daily for 5 days then 1 daily for 5 days PREDNISONE 33423392548 No Longer Active Vishal Hui MD Active ZITHROMAX Z-EARNEST 250 MG TABS 2 today and then 1 daily for 4 days AZITHROMYCIN 02877439378 No Longer Active Vishal Hui MD Active DICLOFENAC POTASSIUM TABS Take 1 tablet twice a day (pt. is not sure of the dose.) DICLOFENAC POTASSIUM TABS 13804024013 No Longer Active Vishal Hui MD Active VERAPAMIL HCL ER 120 MG ORAL CR-TABS Take 1 tablet by mouth twice a day. VERAPAMIL HCL 61370030461 Active Vishal Hui MD Active FLAGYL 500 MG TAB 1 tablet by mouth bid METRONIDAZOLE 67314634637 No Longer Active Vishal Hui MD Active VALIUM 5 MG TAB Take 1-2 tablets daily DIAZEPAM 65757664016 No Longer Active Fabiola Johnson APRN Active METOPROLOL TARTRATE 25 MG ORAL TABS 1/2 tablet twice daily for heart rate and blood pressure METOPROLOL TARTRATE 48987608353 No Longer Active Fabiola Johnson APRN Active MIRALAX ORAL POWD 17GMS DAILY IN WATER POLYETHYLENE GLYCOL 3350 81182702728 Active TAMARA Casey Active MIRALAX PACK 1 po qd PRN Constipation POLYETHYLENE GLYCOL 3350 70307526487 No Longer Active Ahmet Carbajal MD Active MINIPRESS 2 MG CAPS 4 cap po at night PRAZOSIN HCL 83305331411 No Longer Active Ahmet Carbajal MD Active PIROXICAM 20 MG CAPS 1 cap po qd PRN Pain PIROXICAM 55463962819 No Longer Active Ahmet Carbajal MD Active TRAMADOL HCL 50 MG TABS 1-2 po TID PRN Pain TRAMADOL HCL 07020861721 No Longer Active Ahmet Carbajal MD Active METOPROLOL TARTRATE 50 MG TAB 1 po bid METOPROLOL TARTRATE 95126524054 No Longer Active Ahmet Carbajal MD Active ABILIFY 15 MG ORAL TABS 1 tab daily ARIPIPRAZOLE 29655340693 No Longer Active Ahmet Carbajal MD Active PROZAC 20 MG ORAL CAPS 1 tab daily FLUOXETINE HCL 58275019866 No Longer Active Ahmet Carbajal MD Active AMBIEN 5 MG ORAL TABS 1 tab at bedtime ZOLPIDEM TARTRATE 76242809064 No Longer Active Ahmet Carbajal MD Active PREDNISONE 20 MG TAB 2 tabs daily for 4 days, 1 tab daily for 4 days, 1/2 tab daily for 4 days PREDNISONE 78236956274 No Longer Active Ahmet Carbajal MD Active KEFLEX 500 MG CAP 1 po TID x 10 days CEPHALEXIN 05250365340 No Longer Active Vishal Hui MD Active SAPHRIS 5 MG SUBL 1 po bid ASENAPINE MALEATE 59665910043 No Longer Active Jillina Frazelephraim SURVEY ENGINEER Active LATUDA 80 MG TABS Take one by mouth daily LURASIDONE HCL 62343266565 No Longer Active Jillina Frazell SURVEY ENGINEER Active AMLODIPINE BESYLATE 5 MG TABS 1 tablet by mouth daily AMLODIPINE BESYLATE 77321612933 No Longer Active Jillina Frazell SURVEY ENGINEER Active AMITRIPTYLINE HCL 100 MG TAB one at hs AMITRIPTYLINE HCL 95112110381 No Longer Active Vishal Hui MD Active TRAZODONE HCL 100 MG TAB take 1 at bedtime TRAZODONE HCL 10148880322 No Longer Active Vishal Hui MD Active VYVANSE 40 MG CAPS 1 daily, LISDEXAMFETAMINE DIMESYLATE 21658368354 No Longer Active Vishal Hui MD Active IBUPROFEN 600 MG TAB 1 po TID PRN IBUPROFEN 60025721673 No Longer Active Vishal Hui MD Active PROZAC 20 MG CAP Take one by mouth daily FLUOXETINE HCL 88866806534 No Longer Active Vishal Hui MD Active BACTRIM DS 800-160 MG TABS 1 pill by mouth twice daily SULFAMETHOXAZOLE-TRIMETHOPRIM 03976584998 No Longer Active Sahara Rodriguez MD PhD Active DIFLUCAN 150 MG TAB 1 tablet by mouth daily FLUCONAZOLE 67026475450 No Longer Active Vishal Hui MD Active TIZANIDINE HCL 4 MG TABS 1 po q6hr PRN Muscle Spasm/Back Pain TIZANIDINE HCL 78218516135 Active Vishal Hui MD Active CLINDAMYCIN HCL 150 MG CAPS 1 four times a day CLINDAMYCIN HCL 49139830624 No Longer Active Neeraj Collins MD Active KEFLEX 500 MG ORAL CAPS 1 cap QID by mouth CEPHALEXIN 85573978820 No Longer Active Neeraj Collins MD Active DIFLUCAN 150 MG TABS 1 pill every other day x 2 doses FLUCONAZOLE 61279363256 No Longer Active Sahara Rodriguez MD PhD Active MELATONIN 3 MG CAPS 2 po q hs MELATONIN 28593734479 No Longer Active Sahara Rodriguez MD PhD Active MULTIVITAMINS CAPS Take one by mouth daily MULTIPLE VITAMIN 25772487467 No Longer Active Sahara Rodriguez MD PhD Active BACTRIM DS 800-160 MG TAB 1 tab by mouth twice daily TRIMETHOPRIM-SULFAMETHOXAZOLE 05982562446 No Longer Active Sahara Rodriguez MD PhD Active [facility] PROBIOTIC ORAL CHEW 2 daily po PROBIOTIC PRODUCT 90499570477 No Longer Active Sahara Rodriguez MD PhD Active BACTRIM DS 800-160 MG TABS 1 po BID x 7 days SULFAMETHOXAZOLE-TRIMETHOPRIM 64208813551 No Longer Active Vishal Hui MD Active CHANTIX STARTING MONTH EARNEST 0.5 MG X 11 & 1 MG X 42 TABS 0.5mg daily for 3 days , then 0.5mg BID for 4 days, then 1mg BID VARENICLINE TARTRATE 36608946960 No Longer Active Lisette Scarrow, RMA Active VERAPAMIL HCL CR 120 MG TAB CR 1 po bid VERAPAMIL HCL 22911005278 No Longer Active Vishal Hui MD Active METOPROLOL SUCCINATE 50 MG TB24 1 tablet by mouth daily METOPROLOL SUCCINATE 31598946370 No Longer Active Vishal Hui MD Active SAPHRIS 10 MG SUBL 1 tab po bid ASENAPINE MALEATE 20025915185 No Longer Active Vishal Hui MD Active LISINOPRIL 20 MG TABS 1 tab po qd LISINOPRIL 21743057141 No Longer Active Vishal Hui MD Active LATUDA 20 MG TABS Take one by mouth daily LURASIDONE HCL 00310663699 No Longer Active Vishal Hui MD Active TRAZODONE HCL 50 MG TABS 1/2 tab po qd prn for anxiety TRAZODONE HCL 65923891007 No Longer Active Vishal Hui MD Active OMEPRAZOLE 20 MG TBEC 1 po q a.m. 30min prior to first food intake OMEPRAZOLE 95251878149 Active TAMARA Casey Active RANITIDINE HCL 150 MG CAPS 1 twice a day RANITIDINE HCL 95586956686 Active 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 APRN Active LINZESS 290 MCG CAPS Take one by mouth daily LINACLOTIDE 37751733737 No Longer Active Vishal Hui MD Active SAPHRIS 5 MG SUBL 1 tab po qd ASENAPINE MALEATE 05077538001 No Longer Active Vishal Hui MD Active ZALEPLON 10 MG CAPS 1 cap po every other night ZALEPLON 15395880694 No Longer Active Vishal Hui MD Active LYRICA 50 MG CAPS 1 tab po TID PREGABALIN 10128496058 No Longer Active Vishal Hui MD Active LORATADINE 10 MG TABS 1 tab po qd LORATADINE 83980294499 No Longer Active Vishal Hui MD Active VERAPAMIL HCL ER 180 MG CR-TABS 1 tab po bid VERAPAMIL HCL 18748991071 No Longer Active Vishal Hui MD Active MIRALAX POWD 1 capfull once daily POLYETHYLENE GLYCOL 3350 15299105406 No Longer Active Vishal Hui MD Active PREDNISONE 20 MG TABS 1 tab po qd PREDNISONE 29340519288 No Longer Active Renzo Thornton DO Active LEVOFLOXACIN 500 MG TABS 1 tab po qd LEVOFLOXACIN 06946659918 No Longer Active Renzo Thornton DO Active BUSPIRONE HCL 15 MG TABS 1 tab po TID BUSPIRONE HCL 08005339364 No Longer Active Renzo Thornton DO Active BENZTROPINE MESYLATE 1 MG TABS 1 tab po qd BENZTROPINE MESYLATE 63605293758 No Longer Active Renzo Thornton DO Active ATENOLOL 25 MG TABS 1 tab po qd ATENOLOL 10080258255 No Longer Active Renzo Thornton DO Active ESCITALOPRAM OXALATE 20 MG TABS 1 tab po qd ESCITALOPRAM OXALATE 47804704019 No Longer Active Renzo Thornton DO Active ADVAIR DISKUS 250-50 MCG/DOSE AEPB 1 puff BID FLUTICASONE-SALMETEROL 07117737992 No Longer Active Renzo Thornton DO Active PREDNISONE 20 MG TAB 2 tabs daily for 3 days, 1 tab daily for 3 days, 1/2 tab daily for 2 days PREDNISONE 91100708794 No Longer Active Vishal Hui MD Active CEFDINIR 300 MG CAPS by mouth twice a day CEFDINIR 33758467360 No Longer Active Vishal Hui MD Active LANSOPRAZOLE 30 MG CPDR 1 cap po qd LANSOPRAZOLE 80821988712 No Longer Active Vishal Hui MD Active BACLOFEN 20 MG TABS 1 tab po tid BACLOFEN 97937856300 No Longer Active Vishal Hui MD Active ADVAIR DISKUS 250-50 MCG/DOSE AEPB 1 puff BID ADVAIR DISKUS 250-50 MCG/DOSE AEPB FLUTICASONE-SALMETEROL Inactive ESCITALOPRAM OXALATE 20 MG TABS 1 tab po qd ESCITALOPRAM OXALATE 20 MG TABS 730679 ESCITALOPRAM OXALATE Inactive ATENOLOL 25 MG TABS 1 tab po qd ATENOLOL 25 MG TABS 462838 ATENOLOL Inactive BENZTROPINE MESYLATE 1 MG TABS 1 tab po qd BENZTROPINE MESYLATE 1 MG TABS 285732 BENZTROPINE MESYLATE Inactive BUSPIRONE HCL 15 MG TABS 1 tab po TID BUSPIRONE HCL 15 MG TABS 671258 BUSPIRONE HCL Inactive LEVOFLOXACIN 500 MG TABS 1 tab po qd LEVOFLOXACIN 500 MG TABS 175835 LEVOFLOXACIN Inactive PREDNISONE 20 MG TABS 1 tab po qd PREDNISONE 20 MG TABS 601046 PREDNISONE Inactive MIRALAX POWD 1 capfull once daily MIRALAX POWD 837818 POLYETHYLENE GLYCOL 3350 Inactive VERAPAMIL HCL ER 180 MG CR-TABS 1 tab po bid VERAPAMIL HCL ER 180 MG CR-TABS VERAPAMIL HCL Inactive LORATADINE 10 MG TABS 1 tab po qd LORATADINE 10 MG TABS 866812 LORATADINE Inactive LYRICA 50 MG CAPS 1 tab po TID LYRICA 50 MG CAPS PREGABALIN Inactive ZALEPLON 10 MG CAPS 1 cap po every other night ZALEPLON 10 MG CAPS 845892 ZALEPLON Inactive SAPHRIS 5 MG SUBL 1 tab po qd SAPHRIS 5 MG SUBL ASENAPINE MALEATE Inactive TRAZODONE HCL 50 MG TABS 1/2 tab po qd prn for anxiety TRAZODONE HCL 50 MG TABS 759831 TRAZODONE HCL Inactive LATUDA 20 MG TABS Take one by mouth daily LATUDA 20 MG TABS LURASIDONE HCL Inactive LISINOPRIL 20 MG TABS 1 tab po qd LISINOPRIL 20 MG TABS 181381 LISINOPRIL Inactive SAPHRIS 10 MG SUBL 1 tab po bid SAPHRIS 10 MG SUBL ASENAPINE MALEATE Inactive METOPROLOL SUCCINATE 50 MG TB24 1 tablet by mouth daily METOPROLOL SUCCINATE 50 MG TB24 METOPROLOL SUCCINATE Inactive VERAPAMIL HCL CR 120 MG TAB CR 1 po bid VERAPAMIL HCL CR 120 MG TAB CR VERAPAMIL HCL Inactive CHANTIX STARTING MONTH EARNEST 0.5 MG X 11 & 1 MG X 42 TABS 0.5mg daily for 3 days , then 0.5mg BID for 4 days, then 1mg BID CHANTIX STARTING MONTH EARNEST 0.5 MG X 11 & 1 MG X 42 TABS VARENICLINE TARTRATE Inactive [facility] ORAL CHEW 2 daily po [facility] PROBIOT[facility] ORAL CHEW PROBIOTIC PRODUCT Inactive BACTRIM DS 800-160 MG TAB 1 tab by mouth twice daily BACTRIM DS 800-160 MG TAB [id number] TRIMETHOPRIM-SULFAMETHOXAZOLE Inactive MULTIVITAMINS CAPS Take one by mouth daily MULTIVITAMINS CAPS MULTIPLE VITAMIN Inactive MELATONIN 3 MG CAPS 2 po q hs MELATONIN 3 MG CAPS 982256 MELATONIN Inactive KEFLEX 500 MG ORAL CAPS 1 cap QID by mouth KEFLEX 500 MG ORAL CAPS 905281 CEPHALEXIN Inactive CLINDAMYCIN HCL 150 MG CAPS 1 four times a day CLINDAMYCIN HCL 150 MG CAPS 045166 CLINDAMYCIN HCL Inactive DIFLUCAN 150 MG TAB 1 tablet by mouth daily DIFLUCAN 150 MG TAB 649673 FLUCONAZOLE Inactive PROZAC 20 MG CAP Take one by mouth daily PROZAC 20 MG CAP 328027 FLUOXETINE HCL Inactive IBUPROFEN 600 MG TAB 1 po TID PRN IBUPROFEN 600 MG TAB 779980 IBUPROFEN Inactive VYVANSE 40 MG CAPS 1 daily, VYVANSE 40 MG CAPS LISDEXAMFETAMINE DIMESYLATE Inactive TRAZODONE HCL 100 MG TAB take 1 at bedtime TRAZODONE HCL 100 MG TAB 408569 TRAZODONE HCL Inactive AMITRIPTYLINE HCL 100 MG TAB one at hs AMITRIPTYLINE HCL 100 MG TAB 823400 AMITRIPTYLINE HCL Inactive AMLODIPINE BESYLATE 5 MG TABS 1 tablet by mouth daily AMLODIPINE BESYLATE 5 MG TABS 037057 AMLODIPINE BESYLATE Inactive LATUDA 80 MG TABS Take one by mouth daily LATUDA 80 MG TABS LURASIDONE HCL Inactive SAPHRIS 5 MG SUBL 1 po bid SAPHRIS 5 MG SUBL ASENAPINE MALEATE Inactive PREDNISONE 20 MG TAB 2 tabs daily for 4 days, 1 tab daily for 4 days, 1/2 tab daily for 4 days PREDNISONE 20 MG TAB 916854 PREDNISONE Inactive AMBIEN 5 MG ORAL TABS 1 tab at bedtime AMBIEN 5 MG ORAL TABS 268771 ZOLPIDEM TARTRATE Inactive PROZAC 20 MG ORAL CAPS 1 tab daily PROZAC 20 MG ORAL CAPS 358383 FLUOXETINE HCL Inactive ABILIFY 15 MG ORAL TABS 1 tab daily ABILIFY 15 MG ORAL TABS 645985 ARIPIPRAZOLE Inactive METOPROLOL TARTRATE 50 MG TAB 1 po bid METOPROLOL TARTRATE 50 MG TAB 020672 METOPROLOL TARTRATE Inactive TRAMADOL HCL 50 MG TABS 1-2 po TID PRN Pain TRAMADOL HCL 50 MG TABS 870384 TRAMADOL HCL Inactive PIROXICAM 20 MG CAPS 1 cap po qd PRN Pain PIROXICAM 20 MG CAPS 949945 PIROXICAM Inactive MINIPRESS 2 MG CAPS 4 cap po at night MINIPRESS 2 MG CAPS 115805 PRAZOSIN HCL Inactive MIRALAX PACK 1 po qd PRN Constipation MIRALAX PACK 727032 POLYETHYLENE GLYCOL 3350 Inactive METOPROLOL TARTRATE 25 MG ORAL TABS 1/2 tablet twice daily for heart rate and blood pressure METOPROLOL TARTRATE 25 MG ORAL TABS 092177 METOPROLOL TARTRATE Inactive VALIUM 5 MG TAB Take 1-2 tablets daily VALIUM 5 MG TAB 846321 DIAZEPAM Inactive FLAGYL 500 MG TAB 1 tablet by mouth bid FLAGYL 500 MG TAB 450200 METRONIDAZOLE Inactive DICLOFENAC POTASSIUM TABS Take 1 tablet twice a day (pt. is not sure of the dose.) DICLOFENAC POTASSIUM TABS DICLOFENAC POTASSIUM TABS Inactive ZITHROMAX Z-EARNEST 250 MG TABS 2 today and then 1 daily for 4 days ZITHROMAX Z-EARNEST 250 MG TABS 3809215 AZITHROMYCIN Inactive PREDNISONE 20 MG TABS 2 daily for 5 days then 1 daily for 5 days PREDNISONE 20 MG TABS 621399 PREDNISONE Inactive PROAIR HFA 108 (90 BASE) MCG/ACT AERS 2 puffs four times a day as needed 2015 PROAIR HFA 108 (90 BASE) MCG/ACT AERS ALBUTEROL SULFATE Inactive HYDROCODONE-ACETAMINOPHEN 5-325 MG TABS 1 to 2 four times a day as needed for pain use until can be seen by specialist HYDROCODONE- ACETAMINOPHEN 5-325 MG TABS 085592 HYDROCODONE-ACETAMINOPHEN Inactive TESSALON PERLES 100 MG CAP 1 to 2 tablets by mouth 3 times daily as needed for cough TESSALON PERLES 100 MG CAP 433360 BENZONATATE Inactive CHANTIX STARTING MONTH EARNEST 0.5 MG X 11 & 1 MG X 42 TABS take as directed 2015 CHANTIX STARTING MONTH EARNEST 0.5 MG X 11 & 1 MG X 42 TABS VARENICLINE TARTRATE Inactive CHANTIX 1 MG TABS 1 twice a day to help quit smoking CHANTIX 1 MG TABS VARENICLINE TARTRATE Inactive ADZENYS XR-ODT 6.3 MG ORAL TBED 1 tab po daily for ADHD ADZENYS XR-ODT 6.3 MG ORAL TBED AMPHETAMINE Inactive DICLOFENAC SODIUM 50 MG TBEC 1 tablet by mouth four times daily PRN Pain 2015 DICLOFENAC SODIUM 50 MG TBEC 686408 DICLOFENAC SODIUM Inactive TOPAMAX 50 MG ORAL TABS 1 tab twice daily TOPAMAX 50 MG ORAL TABS 767270 TOPIRAMATE Inactive VIIBRYD 10 MG ORAL TABS Take 1 tablet once a day VIIBRYD 10 MG ORAL TABS VILAZODONE HCL Inactive LEVOFLOXACIN 500 MG ORAL TABS po daily LEVOFLOXACIN 500 MG ORAL TABS 980822 LEVOFLOXACIN Inactive METHYLPREDNISOLONE 4 MG ORAL TABS po daily METHYLPREDNISOLONE 4 MG ORAL TABS 443142 METHYLPREDNISOLONE Inactive OXYCODONE HCL ER 10 MG ORAL T12A 1/2 tab by mouth every 4 hours prn OXYCODONE HCL ER 10 MG ORAL T12A OXYCODONE HCL Inactive FLAGYL 500 MG TAB 1 tablet by mouth bid FLAGYL 500 MG TAB 421775 METRONIDAZOLE Inactive MONISTAT 7 COMBO PACK WOODROW 100 & 2 MG-% (9GM) VAG KIT 1 applicatorful per vagina q pm x 7 MONISTAT 7 COMBO PACK WOODROW 100 & 2 MG-% (9GM) VAG KIT MICONAZOLE NITRATE Inactive BACTRIM DS 800-160 MG TABS 1 twice a day BACTRIM DS 800-160 MG TABS 280565 SULFAMETHOXAZOLE-TRIMETHOPRIM Inactive TRAMADOL HCL 50 MG TABS 1/2-1 tab TID PRN TRAMADOL HCL 50 MG TABS 658069 TRAMADOL HCL Inactive ABILIFY MAINTENA 400 MG IM SUSR 400mg injection every 26 days ABILIFY MAINTENA 400 MG IM SUSR ARIPIPRAZOLE Inactive KLONOPIN 1 MG ORAL TABS 1 tab po TID KLONOPIN 1 MG ORAL TABS 650881 CLONAZEPAM Inactive ADVAIR DISKUS 250-50 MCG/DOSE INH AEPB 1 puff twice a day for asthma ADVAIR DISKUS 250-50 MCG/DOSE INH AEPB FLUTICASONE- SALMETEROL Inactive BENADRYL 25 MG CAP 4 po at bedtime for insomnia BENADRYL 25 MG CAP DIPHENHYDRAMINE HCL Inactive PREDNISONE 20 MG TABS 2 daily for 5 days then 1 daily for 5 days PREDNISONE 20 MG TABS 724893 PREDNISONE Inactive HYDROCODONE-ACETAMINOPHEN 5-325 MG ORAL TABS 1 tab two times a day HYDROCODONE-ACETAMINOPHEN 5-325 MG ORAL TABS 238097 HYDROCODONE-ACETAMINOPHEN Inactive ZITHROMAX Z-EARNEST 250 MG TABS 2 today and then 1 daily for 4 days ZITHROMAX Z-EARNEST 250 MG TABS 1552160 AZITHROMYCIN Inactive GUAIFENESIN-CODEINE 100-10 MG/5ML SYRP 5ml every 4 to 6 hours as needed for cough GUAIFENESIN-CODEINE 100-10 MG/5ML SYRP 926077 GUAIFENESIN-CODEINE Inactive HALOPERIDOL 10 MG ORAL TABS 1 tab q.d HALOPERIDOL 10 MG ORAL TABS 443926 HALOPERIDOL Inactive ASPIRIN 325 MG ORAL TABS 1 tab q.d ASPIRIN 325 MG ORAL TABS 726249 ASPIRIN Inactive FLUTICASONE PROPIONATE 50 MCG/ACT SUSP 2 sprays each nostril daily before bed. FLUTICASONE PROPIONATE 50 MCG/ACT SUSP 4185567 FLUTICASONE PROPIONATE Inactive ZOFRAN 4 MG TABS 1 po q6hr PRN Nausea ZOFRAN 4 MG TABS 997943 ONDANSETRON HCL Inactive CEFDINIR 300 MG CAPS by mouth twice a day CEFDINIR 300 MG CAPS 170006 CEFDINIR Inactive PREDNISONE 20 MG TAB 2 tabs daily for 3 days, 1 tab daily for 3 days, 1/2 tab daily for 2 days PREDNISONE 20 MG TAB 405215 PREDNISONE Inactive BACTRIM DS 800-160 MG TABS 1 po BID x 7 days BACTRIM DS 800-160 MG TABS 19820521 SULFAMETHOXAZOLE-TRIMETHOPRIM Inactive DIFLUCAN 150 MG TABS 1 pill every other day x 2 doses DIFLUCAN 150 MG TABS 656879 FLUCONAZOLE Inactive BACTRIM DS 800-160 MG TABS 1 pill by mouth twice daily BACTRIM DS 800-160 MG TABS 19820521 SULFAMETHOXAZOLE-TRIMETHOPRIM Inactive KEFLEX 500 MG CAP 1 po TID x 10 days KEFLEX 500 MG CAP 352176 CEPHALEXIN Inactive Advance Directives Directive Description Start Date DISCUSSED WITH PATIENT -- NO DECISION MADE Vital Signs Date Name Value Unit Range Description blood pressure, diastolic - 8462-4 88 mm[Hg] BP mcnally blood pressure, systolic - 8480-6 126 mm[Hg] BP sys pulse rate E&M - 8867-4 110 /min Heart rate temperature E&M 97.5 [degF] Body temperature weight E&M - 3141-9 265 [lb_av] Weight Measured blood pressure, diastolic - 8462-4 83 mm[Hg] BP mcnally blood pressure, systolic - 8480-6 115 mm[Hg] BP sys pulse rate E&M - 8867-4 116 /min Heart rate temperature E&M 97.9 [degF] Body temperature weight E&M - 3141-9 266.5 [lb_av] Weight Measured blood pressure, diastolic - 8462-4 99 mm[Hg] BP mcnally blood pressure, systolic - 8480-6 153 mm[Hg] BP sys pulse rate E&M - 8867-4 105 /min Heart rate temperature E&M 98.8 [degF] Body temperature weight E&M - 3141-9 261 [lb_av] Weight Measured blood pressure, diastolic - 8462-4 96 mm[Hg] BP mcnally blood pressure, systolic - 8480-6 126 mm[Hg] BP sys pulse rate E&M - 8867-4 115 /min Heart rate temperature E&M 97.9 [degF] Body temperature weight E&M - 3141-9 266.5 [lb_av] Weight Measured blood pressure, diastolic - 8462-4 86 mm[Hg] BP mcnally blood pressure, systolic - 8480-6 128 mm[Hg] BP sys pulse rate E&M - 8867-4 93 /min Heart rate temperature E&M 98.5 [degF] Body temperature blood pressure, diastolic - 8462-4 81 mm[Hg] BP mcnally blood pressure, systolic - 8480-6 124 mm[Hg] BP sys height E&M - 8302-2 65 [in_us] Bdy height pulse rate E&M - 8867-4 80 /min Heart rate temperature E&M 98 [degF] Body temperature weight E&M - 3141-9 267 [lb_av] Weight Measured blood pressure, diastolic - 8462-4 84 mm[Hg] BP mcnally blood pressure, systolic - 8480-6 136 mm[Hg] BP sys pulse rate E&M - 8867-4 114 /min Heart rate temperature E&M 98.2 [degF] Body temperature blood pressure, diastolic - 8462-4 74 mm[Hg] BP mcnally blood pressure, systolic - 8480-6 107 mm[Hg] BP sys pulse rate E&M - 8867-4 116 /min Heart rate temperature E&M 98.6 [degF] Body temperature blood pressure, diastolic - 8462-4 79 mm[Hg] BP mcnally blood pressure, systolic - 8480-6 112 mm[Hg] BP sys pulse rate E&M - 8867-4 101 /min Heart rate temperature E&M 98.5 [degF] Body temperature weight E&M - 3141-9 266 [lb_av] Weight Measured blood pressure, diastolic - 8462-4 61 mm[Hg] BP mcnally blood pressure, systolic - 8480-6 102 mm[Hg] BP sys pulse rate E&M - 8867-4 91 /min Heart rate temperature E&M 98.6 [degF] Body temperature weight E&M - 3141-9 267 [lb_av] Weight Measured blood pressure, diastolic - 8462-4 63 mm[Hg] BP mcnally blood pressure, systolic - 8480-6 103 mm[Hg] BP sys pulse rate E&M - 8867-4 89 /min Heart rate temperature E&M 98.6 [degF] Body temperature blood pressure, diastolic - 8462-4 73 mm[Hg] BP mcnally blood pressure, systolic - 8480-6 115 mm[Hg] BP sys pulse rate E&M - 8867-4 109 /min Heart rate temperature E&M 98.3 [degF] Body temperature blood pressure, diastolic - 8462-4 86 mm[Hg] BP mcnally blood pressure, systolic - 8480-6 121 mm[Hg] BP sys pulse rate E&M - 8867-4 102 /min Heart rate temperature E&M 98.2 [degF] Body temperature weight E&M - 3141-9 266 [lb_av] Weight Measured blood pressure, diastolic - 8462-4 89 mm[Hg] BP mcnally blood pressure, systolic - 8480-6 140 mm[Hg] BP sys pulse rate E&M - 8867-4 50 /min Heart rate temperature E&M 98.5 [degF] Body temperature weight E&M - 3141-9 273.5 [lb_av] Weight Measured blood pressure, diastolic - 8462-4 81 mm[Hg] BP mcnally blood pressure, systolic - 8480-6 131 mm[Hg] BP sys pulse rate E&M - 8867-4 108 /min Heart rate temperature E&M 98.2 [degF] Body temperature weight E&M - 3141-9 267.5 [lb_av] Weight Measured blood pressure, diastolic - 8462-4 92 mm[Hg] BP mcnally blood pressure, systolic - 8480-6 144 mm[Hg] BP sys pulse rate E&M - 8867-4 88 /min Heart rate temperature E&M 98.7 [degF] Body temperature weight E&M - 3141-9 267.5 [lb_av] Weight Measured blood pressure, diastolic - 8462-4 83 mm[Hg] BP mcnally blood pressure, systolic - 8480-6 129 mm[Hg] BP sys pulse rate E&M - 8867-4 100 /min Heart rate temperature E&M 96.6 [degF] Body temperature weight E&M - 3141-9 271 [lb_av] Weight Measured blood pressure, diastolic - 8462-4 86 mm[Hg] BP mcnally blood pressure, systolic - 8480-6 142 mm[Hg] BP sys pulse rate E&M - 8867-4 89 /min Heart rate temperature E&M 98.2 [degF] Body temperature weight E&M - 3141-9 279 [lb_av] Weight Measured blood pressure, diastolic - 8462-4 79 mm[Hg] BP mcnally blood pressure, systolic - 8480-6 114 mm[Hg] BP sys pulse rate E&M - 8867-4 99 /min Heart rate temperature E&M 97.8 [degF] Body temperature weight E&M - 3141-9 281.5 [lb_av] Weight Measured blood pressure, diastolic - 8462-4 95 mm[Hg] BP mcnally blood pressure, systolic - 8480-6 145 mm[Hg] BP sys pulse rate E&M - 8867-4 74 /min Heart rate weight E&M - 3141-9 283.5 [lb_av] Weight Measured blood pressure, diastolic - 8462-4 77 mm[Hg] BP mcnally blood pressure, systolic - 8480-6 120 mm[Hg] BP sys pulse rate E&M - 8867-4 105 /min Heart rate temperature E&M 99.6 [degF] Body temperature weight E&M - 3141-9 282.4 [lb_av] Weight Measured Diagnostic Results Date Name Value Unit Range Description Lab Report: CBC (INCLUDES DIFF/PLT)/6399, COMPREHENSIVE METABOLIC PANEL, ... - Hematology leukocyte count, blood 16.6 THOUSAND/UL 10*3/mm3 3.8-10.8 erythrocyte (RBC) count 4.46 MILLION/UL 10*6/mm3 3.80-5.10 hemoglobin, blood 13.3 g/dL 11.7-15.5 hematocrit, blood 40.7 % 35.0-45.0 mean corpuscular volume, RBC 91.4 fL 80.0-100.0 mean corpuscular hemoglobin, RBC 29.9 pg 27.0-33.0 mean corpuscular hemoglobin concentration, RBC 32.8 G/DL % 32.0- 36.0 red blood cell distribution width 12.9 % 11.0-15.0 platelet count 443 THOUSAND/UL 10*3/mm3 855-987 4231/03/01 mean platelet volume 8.2 fL 7.5-12.5 Lab Report: CBC, Thyroid Stimulating Hormone (L) - Chemistry TSH 0.62 m[iU]/mL 0.36-3.74 Lab Report: CBC, Thyroid Stimulating Hormone (L) - Hematology leukocyte count, blood 11.1 10^3/MM^3 10*3/mm3 4.6-10.2 erythrocyte (RBC) count 4.78 10^6/MM^3 10*6/mm3 4.04-5.48 hemoglobin, blood 15.3 g/dL 12.0-16.0 hematocrit, blood 45.0 % 36.0-46.0 mean corpuscular volume, RBC 94 fL 80-97 mean corpuscular hemoglobin, RBC 32.1 pg 27.0-31.2 mean corpuscular hemoglobin concentration, RBC 34.1 G/DL % 31.8- 35.4 red blood cell distribution width 11.8 % 11.6-14.8 platelet count 369 10^3/MM^3 10*3/mm3 142-424 Lab Report: Chlamydia/GC APTIMA/09443 - Lab chlamydia DNA probe NOT DETECTED NOT DETECTED Lab Report: Chlamydia/GC APTIMA/64166 - Microbiology Neisseria gonorrhoeae DNA probe NOT DETECTED NOT DETECTED Lab Report: Chlamydia/GC APTIMA/46838, Urinalysis, Complete, with Reflex ... - Lab chlamydia DNA probe NOT DETECTED NOT DETECTED Lab Report: Chlamydia/GC APTIMA/92606, Urinalysis, Complete, with Reflex ... - Microbiology Neisseria gonorrhoeae DNA probe NOT DETECTED NOT DETECTED Lab Report: Chlamydia/GC APTIMA/85306, Urinalysis, Complete, with Reflex ... - Urinalysis microalbumin/total urine volume 2 mg/L Units converted. See lab report for original value. microalbumin/creatinine ratio, urine 9 MCG/MG CREAT mg/L <30 Lab Report: Comp. Metabolic Panel - Chemistry carbon dioxide, venous blood 33.7 mmol/L 21.0-32.0 potassium, serum 5.0 mmol/L 3.5-5.2 chloride, serum 103 mmol/L 98-107 blood glucose 80 mg/dL 65-110 urea nitrogen, blood 13 mg/dL 7-18 urea nitrogen, blood 8 mg/dL 7-18 creatinine, serum 0.75 mg/dL 0.55-1.30 alanine aminotransferase (SGPT), serum 49 U/L - aspartate aminotransferase (SGOT), serum 28 U/L 15-37 calcium, serum 9.4 mg/dL 8.5-10.1 bilirubin, serum, total 0.30 mg/dL 0.00-1.00 blood glucose 95 mg/dL 65-110 chloride, serum 105 mmol/L 98-107 potassium, serum 4.0 mmol/L 3.5-5.2 carbon dioxide, venous blood 27.6 mmol/L 21.0-32.0 sodium, serum 142 mmol/L 937-649 8983/08/08 sodium, serum 140 mmol/L 531-794 1761/08/08 creatinine, serum 0.88 mg/dL 0.55-1.30 alanine aminotransferase (SGPT), serum 54 U/L -78 aspartate aminotransferase (SGOT), serum 29 U/L 15-37 calcium, serum 9.7 mg/dL 8.5-10.1 bilirubin, serum, total 0.30 mg/dL 0.00-1.00 Lab Report: UADIP W/MICRO, AUTO - Chemistry RBC, urine, dipstick 1+ Negative protein, total urine random Negative mg/dL Negative protein, total urine random Negative mg/dL Negative RBC, urine, dipstick Negative Negative Lab Report: UADIP W/MICRO, AUTO - Urinalysis urobilinogen, urine, semiquantitative (dipstick) 0.2 Normal leukocyte esterase, urine, by dipstick Trace Negative nitrite, urine, semiquantitative Negative Negative glucose, urine, semiquantitative Negative Negative ketones, urine, by test strip Negative Negative bilirubin, urine Negative Negative glucose, urine, semiquantitative Negative Negative ketones, urine, by test strip Negative Negative bilirubin, urine Negative Negative urobilinogen, urine, semiquantitative (dipstick) 0.2 Normal leukocyte esterase, urine, by dipstick Negative Negative nitrite, urine, semiquantitative Negative Negative urine color Yellow Colorless;Lightyellow;Straw;Yellow appearance, urine Clear Clear specific gravity, urine 1.025 1.000-1.030 pH, urine, semiquantitative 6.0 5.0-8.5 urine color Yellow Colorless;Lightyellow;Straw;Yellow appearance, urine Clear Clear specific gravity, urine 1.020 1.000-1.030 pH, urine, semiquantitative 6.0 5.0-8.5 Office Visit: Consult for Painful Lipoma - Basic LDL target level 100 mg/dL Office Visit: Consult for Painful Lipoma - Chemistry cholesterol, target level 200 mg/dL triglyceride, target level 200 mg/dL HDL cholesterol, serum, target level 35 mg/dL Encounters Code Encounter Date Provider Facility CPT-55886 Level 3 Est. Patient 11:04:38 CDT Renzo W Norberto [facility] CPT-88223 Level 3 Est. Patient 11:15:58 HAMMERER TAB Renzo Thornton [facility] CPT-00754 Level 3 Est. Patient 15:28:23 HAMMERER TAB Suzan Boo [facility] CPT-41601 Level 4 Est. Patient 10:20:54 HAMMERER TAB Suzan Boo [facility] CPT-88397 Level 3 Est. Patient 11:47:37 HAMMERER TAB Ahmet Carbajal MD [facility] CPT-70371 Level 3 Est. Patient 10:40:11 HAMMERER TAB Ahmet Carbajal MD [facility] CPT-18440 Level 3 Est. Patient 15:07:06 HAMMERER TAB Neeraj Collins MD [facility] CPT-90423 Level 4 Est. Patient 14:45:00 HAMMERER TAB Ahmet Carbajal MD [facility] CPT-40652 Level 3 Est. Patient 13:59:59 CDT 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 [facility] CPT-75620 Level 3 Est. Patient 18:18:53 CDT Neeraj Collins MD [facility] CPT-80799 Level 3 Est. Patient 15:50:44 CDT Vishal Hui MD [facility] CPT-45952 Level 3 Est. Patient 11:36:17 CDT Ahmet Carbajal MD [facility] CPT-14157 Level 3 Est. Patient 13:29:16 CDT Vishal Hui MD [facility] CPT-60840 Level 3 Est. Patient 14:27:52 CDT Neeraj Collins MD [facility] CPT-00550 Level 3 Est. Patient 08:56:03 CDT 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 [facility] CPT-67701 Level 4 Est. Patient 12:11:48 CDT Fabiola Johnson [facility] CPT-66367 Level 3 New Patient 16:53:37 CDT Albert Caldera MD [facility] CPT-22998 Level 3 Est. Patient 11:25:49 CDT Renzo Thornton [facility] CPT-99185 Level 3 Est. Patient 15:22:01 CDT Ahmet Carbajal MD [facility] CPT-22523 Level 4 Est. Patient 09:00:51 HAMMERER TAB Vishal Hui MD [facility] CPT-17533 Level 3 Est. Patient 11:37:33 HAMMERER TAB Vishal Hui MD [facility] CPT-04818 Level 3 Est. Patient 08:41:09 HAMMERER TAB Vishal Hui MD [facility] CPT-70237 Level 4 Est. Patient 10:19:35 HAMMERER TAB Vishal Hui MD [facility] CPT-88086 Level 3 Est. Patient 13:35:45 CDT Vishal Hui MD [facility] CPT-75782 Level 4 Est. Patient 10:08:37 CDT Vishal Hui MD [facility] CPT-19556 Level 3 Est. Patient 11:22:10 CDT Vishal Hui MD [facility] CPT-37609 Level 3 Est. Patient 11:03:32 CDT Sahara Rodriguez MD, PhD [facility] CPT-18473 Level 3 Est. Patient 09:41:35 CDT Vishal Hui MD [facility] CPT-78131 Level 3 Est. Patient 12:00:41 CDT Neeraj Collins MD [facility] CPT-90237 Level 3 Est. Patient 09:16:24 CDT Vishal Hui MD [facility] CPT-98871 Level 4 Est. Patient 13:59:09 CDT Neeraj Collins MD [facility] CPT-25664 Level 3 Est. Patient 15:19:43 CDT Renzo Thornton DO [facility] CPT-41700 Level 3 Est. Patient 18:10:26 CDT Sahara Rodriguez MD PhD [facility] CPT-79719 Level 3 Est. Patient 14:49:50 CDT Vishal Hui MD [facility] CPT-51501 Level 4 Est. Patient 18:41:46 CDT Neeraj Collins MD [facility] CPT-35704 Level 4 Est. Patient 09:18:38 HAMMERER TAB Vishal Hui MD [facility] CPT-26767 Level 3 Est. Patient 14:43:55 HAMMERER TAB Vishal Hui MD [facility] CPT-02166 Level 3 Est. Patient 15:26:33 HAMMERER TAB Sahara Rodriguez MD PhD [facility] CPT-27523 Level 3 Est. Patient 10:32:14 HAMMERER TAB Vishal Hui MD [facility] CPT-01340 Level 3 Est. Patient 15:12:52 HAMMERER TAB Vishal Hui MD [facility] CPT-63074 Level 4 Est. Patient 09:19:27 CDT Vishal Hui MD [facility] CPT-36516 Level 3 Est. Patient 15:53:00 CDT Renzo Thornton [facility] CPT-94348 Level 3 Est. Patient 15:50:30 CDT Renzo Thornton [facility] CPT-10601 Level 3 Est. Patient 16:55:24 CDT Vishal Hui MD [facility] Procedures Code Procedure Name Date Entry Date Standard Description CPT-31628 Smoking Cessation counseling 11:15:58 HAMMERER TAB CPT-G0439 [facility] Annual Wellness Exam 09:30:58 HAMMERER TAB CPT-62912 TSH - LAB USE ONLY 08:50:26 HAMMERER TAB CPT-12040 CBC - LAB USE ONLY 08:50:26 HAMMERER TAB CPT-80424 Venipuncture Draw Fee 08:50:26 HAMMERER TAB CPT-98329 Abx/Therapy Injection 17:34:30 HAMMERER TAB CPT-30536 Nexplanon Removal with Reinsertion 14:09:32 CDT CPT-J7307 Nexplanon (Implant) 14:09:32 CDT CPT-OV Office Visit 14:09:32 CDT CPT-52976 UA w micro - LAB USE ONLY 16:21:13 CDT CPT-95854 Wet Mount - LAB USE ONLY 16:21:13 CDT CPT-45654 First Vx - Ix admin for Medicare patients 14:37:47 CDT CPT-14505 Fluzone Preservative Free Intramuscular Suspension 14:37 :47 CDT CPT-12528 Abx/Therapy Injection 13:54:22 CDT CPT-24416 Abx/Therapy Injection 08:47:09 CDT CPT-84834 Abx/Therapy Injection 13:29:56 CDT CPT-59721 Abx/Therapy Injection 08:36:16 CDT CPT-25122 Wet Mount - LAB USE ONLY 17:44:58 CDT CPT-48537 UA w micro - LAB USE ONLY 17:44:58 CDT CPT-87954 CMP - LAB USE ONLY 17:44:58 CDT CPT-04186 Venipuncture Draw Fee 17:44:58 CDT CPT-02348 Cervical Min 4V - XRAY USE ONLY 09:01:40 CDT CPT-17778 Chest 2V Frontal and Lat - XRAY USE ONLY 11:06:31 CDT CPT-22865 EKG Trac and Interp - XRAY USE ONLY 11:31:43 CDT 08/26 CPT-J3420 Vitamin B12 1000mcg (Cyanocobalamin) 08:10:26 HAMMERER TAB 04/12 CPT-75994 Abx/Therapy Injection 08:10:26 HAMMERER TAB CPT-G0438 Initial Annual Wellness Exam 19:01:01 HAMMERER TAB CPT-J3420 Vitamin B12 1000mcg (Cyanocobalamin) 16:57:46 CDT 08/14 CPT-32760 Recombivax HB Injection Suspension 5 MCG/0.5ML 08:37:50 HAMMERER TAB CPT-84605 Immunization Single Admin 08:37:50 HAMMERER TAB CPT-J3420 Vitamin B12 1000mcg (Cyanocobalamin) 08:32:16 HAMMERER TAB 03/11 CPT-97914 Abx/Therapy Injection 08:32:16 HAMMERER TAB CPT-18243 Chest 2V Frontal and Lat 11:46:38 HAMMERER TAB CPT-31344 Venipuncture Draw Fee 09:12:45 HAMMERER TAB CPT-J3420 Vitamin B12 1000mcg (Cyanocobalamin) 08:50:15 HAMMERER TAB 02/08 CPT-02011 Abx/Therapy Injection 08:50:15 HAMMERER TAB CPT-Cryo Cryotherapy 10:19:35 HAMMERER TAB CPT-000 Give Appropriate Flu Vaccine 09:22:16 CDT CPT-J3420 Vitamin B12 1000mcg (Cyanocobalamin) 19:08:57 CDT 01/11 CPT-98652 Abx/Therapy Injection 19:08:57 CDT CPT-J3420 Vitamin B12 1000mcg (Cyanocobalamin) 08:19:08 CDT 12/11 CPT-04304 Abx/Therapy Injection 08:19:08 CDT CPT-J3420 Vitamin B12 1000mcg (Cyanocobalamin) 14:48:00 CDT 11/09 CPT-17511 Abx/Therapy Injection 14:47:59 CDT CPT-J3420 Vitamin B12 1000mcg (Cyanocobalamin) 08:34:04 CDT 10/09 CPT-21871 Abx/Therapy Injection 08:34:04 CDT CPT-J3420 Vitamin B12 1000mcg (Cyanocobalamin) 09:18:52 CDT 09/11 CPT-42833 Abx/Therapy Injection 09:18:52 CDT CPT-J3420 Vitamin B12 1000mcg (Cyanocobalamin) 08:35:44 CDT 09/04 CPT-33631 Abx/Therapy Injection 08:35:44 CDT CPT-29059 Immunization Single Admin 11:07:16 CDT CPT-59365 Hepatitis B adult IM 11:07:16 CDT CPT-J3420 Vitamin B12 1000mcg (Cyanocobalamin) 11:00:49 CDT 08/28 CPT-J1040 Depo Medrol 80 mg (Methyl Prednisolone Acetate) 11:00: 49 CDT CPT-21891 Abx/Therapy Injection 11:00:49 CDT CPT-J1040 Depo Medrol 80 mg (Methyl Prednisolone Acetate) 09:16: 23 CDT CPT-J3420 Vitamin B12 1000mcg (Cyanocobalamin) 08:27:05 CDT 08/20 CPT-96118 Abx/Therapy Injection 08:27:05 CDT CPT-23344 Recombivax HB Injection Suspension 5 MCG/0.5ML 10:00:41 CDT CPT-50339 Administration single or combination vaccine inc oral 10 :00:41 CDT CPT-28145 Sono transvag pelvis non OB uterus ovaries cervix 16:36: 57 CDT CPT-08037 LS spine comp w obliq 09:50:55 HAMMERER TAB CPT-57385 Abd compl w upright 09:50:55 HAMMERER TAB CPT-J1100 Decadron 4mg (Dexamethasone) 15:51:24 HAMMERER TAB CPT-J1030 Depo Medrol 40 mg (Methyl Prednisolone Acetate) 15:51: 24 HAMMERER TAB CPT-17117 Abx/Therapy Injection 15:51:24 HAMMERER TAB CPT-J1100 Decadron 4mg (Dexamethasone) 15:26:33 HAMMERER TAB CPT-J1030 Depo Medrol 40 mg (Methyl Prednisolone Acetate) 15:26: 33 HAMMERER TAB CPT-57626 Sono retroperitoneal complete kidneys and bladder 17:15: 30 CDT CPT-91562 Abd compl w upright 16:09:25 CDT CPT-J1100 Decadron 8mg (Dexamethasone) 17:07:57 CDT CPT-69175 Abx/Therapy Injection 17:07:57 CDT CPT-J1100 Decadron 8mg (Dexamethasone) 16:55:24 CDT CPT-68585 Chest 2V Frontal and Lat 16:32:44 CDT
--- OUTSIDE RECORDS SUMMARY | 2016-11-04 10:33 | XMS REPORT | Clinical Summary ---
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 Other specified cardiac dysrhythmias Schizoaffective disorder 295.70 [...] Cellulitis and abscess of breast 611.0 Resolved Ahemt Carbajal MD Inflammatory disease of breast Cigarette smoker 305.1 Active Ahmet Carbajal MD Tobacco use disorder Nondisplaced transverse fracture of shaft of left fibula, subsequent encounter for closed fracture with routine healing Resolved Suzan Boo APRN Bronchitis, acute 466.0 Resolved Ahmet Carbajal MD Acute bronchitis Generalized anxiety disorder 300.02 Active Ahmet Carbajal MD Generalized anxiety disorder [employer] well woman exam V72.31 Active Suzan Boo APRN Routine gynecological examination Bronchitis, acute with mild bronchospasm 466.0 Active Suzan Boo APRN Acute bronchitis Fibrocystic breast changes 610.1 Active Suzan Boo APRN Diffuse cystic 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 uSzan Boo APRN Other specified conditions influencing health status Tracheitis 464.10 Active Renzo Thornton DO Acute tracheitis without mention of obstruction Impetigo 684 Active Renzo Thornton DO Impetigo Furuncle of buttock 680.5 Active Suzan Boo APRN Carbuncle and furuncle of buttock Vaginal irritation 623.9 Active Suzan Boo APRN Unspecified noninflammatory disorder of vagina Scalding pain on urination 788.1 Active Suzan Boo APRN Dysuria Abdominal pain, right upper quadrant 789.01 Active Suzan Boo APRN Abdominal pain, right upper quadrant Dark urine 791.9 Active Suzan Boo APRN Other nonspecific findings on examination of urine Neck pain, chronic 723.1 Active Suzan Boo APRN Cervicalgia Preop exam V72.84 Active Suzan Boo APRN Preoperative examination, unspecified Anxiety Disorder ICD-300.00 Inactive Vishal Hui MD Pneumonia, organism unspecified ICD-486 Inactive Vishal Hui MD Flank pain, right ICD-789.09 Inactive Vishal Hui MD G E R D ICD-530.81 Inactive Vishal Hui MD Health screening ICD-V70.0 Inactive 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 Sinus tachycardia ICD-427.89 Jim Boo APRN Smoker/tobacco use disorder-smoking cessation discussed ICD-305.1 Inactive Vishal Hui MD Abdominal pain ICD-789.00 Inactive Vishal Hui MD Cellulitis ICD-682.9 Inactive Vishal Hui MD Pelvic pain ICD-625.9 Inactive Vishal Hui MD Abscess, skin ICD-682.9 Inactive Vishal Hui MD Physical examination ICD-V70.0 Inactive Vishal Hui MD Vaginitis ICD-616.10 Inactive Vishal Hui MD 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 Inactive Vishal Hui MD Fatigue ICD-780.79 Inactive Vishal Hui MD 2014 Vaginitis, candidal ICD-112.1 Jim Hui MD Other abnormal blood chemistry ICD-790.6 Inactive Vishal Hui MD Boils, recurrent ICD-680.9 Inactive Vishal Hui MD Postconcussion syndrome ICD-310.2 Inactive Vishal Hui MD Nevus, 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 Inactive Vishal Hui MD Encounter for removal of sutures ICD-V58.32 Inactive Vishal Hui MD Hot flashes ICD-627.2 Inactive Vishal Hui MD Personality change ICD-301.9 Inactive Vishal Hui MD Leukocytosis ICD-288.60 Inactive Vishal Hui MD UTI ICD-599.0 Inactive Vishal Hui [...] Generic Name NDC Status Provider Patient Instruction BACTRIM DS 800-160 MG TAB Take one (1) tablet by mouth twice a day for 5 days TRIMETHOPRIM-SULFAMETHOXAZOLE 13394106971 Active Samantha MCDONALD Active MUPIROCIN 2 % OINT apply twice a day MUPIROCIN 20126337718 No Longer Active Suzan Boo APRN Active BACTRIM DS 800-160 MG TABS 1 twice a day SULFAMETHOXAZOLE-TRIMETHOPRIM 76173107147 No Longer Active Suzan Boo APRN Active DIFLUCAN 150 MG TABS 1 by mouth for yeast FLUCONAZOLE 45792751034 No Longer Active Suzan Boo APRN Active AMITIZA 8 MCG ORAL CAPS 1 capsule twice daily LUBIPROSTONE 25397550564 Active Sheila Calderon LPN Active LINZESS 290 MCG ORAL CAPS 1 tab 30 min prior to first meal each day. LINACLOTIDE 56577739319 No Longer Active Sheila Claderon LPN Active AMITIZA 8 MCG ORAL CAPS 1 tab BID LUBIPROSTONE 83006890753 No Longer Active Lynda Xiao LPN Active LACTULOSE 10 GM/15ML ORAL SOLN 30mL oral BID for IBS-C LACTULOSE 37598537692 Active Suzan Boo APRN Active TESSALON PERLES 100 MG CAPS 1 three times a day as needed for cough BENZONATATE 74825221699 No Longer Active Suzan Boo APRN Active BACTRIM DS 800-160 MG TABS 1 twice a day SULFAMETHOXAZOLE-TRIMETHOPRIM 21915891518 No Longer Active Suzan Boo APRN Active DIFLUCAN 150 MG TABS 1 by mouth for yeast FLUCONAZOLE 71567869864 No Longer Active Suzan Boo APRN Active EQ NICOTINE 21 MG/24HR TRANS PT24 Apply daily to stop smoking NICOTINE 59957411596 No Longer Active Suzan Boo APRN Active PREDNISONE 10 MG TABS 2 daily for 5 days then 1 daily for 5 days PREDNISONE 42535785005 No Longer Active Suzan Boo APRN Active LEVAQUIN 500 MG TABS 1 daily for infection LEVOFLOXACIN 47677753403 No Longer Active Suzan Boo APRN Active TROPICAMIDE 0.5 % OPHTH SOLN 1 drop PRN eye spasms TROPICAMIDE 83918145367 No Longer Active Suzan Boo APRN Active PREDNISONE 20 MG TAB 1 tablet daily x 4 days PREDNISONE 51781387907 No Longer Active Suzan Boo APRN Active ACETAMINOPHEN-CODEINE 120-12 MG/5ML SOLN 5 ml by mouth every 4-6 hours if needed for cough ACETAMINOPHEN-CODEINE 48316861501 No Longer Active Suzan Boo APRN Active KEFLEX 500 MG CAP 1 po qid CEPHALEXIN 69141549531 No Longer Active Suzan Boo APRN Active FLOVENT HFA 110 MCG/ACT AERO 2 puffs inhaled b.i.d. FLUTICASONE PROPIONATE HFA 91459656972 Active Renzo Thornton DO Active RISPERDAL 4 MG ORAL TABS 1 tab at bedtime RISPERIDONE 57447314635 Active Samantha Rothman RMA Active ZOFRAN 4 MG TABS 1 po q6hr PRN Nausea ONDANSETRON HCL No Longer Active Suzan Boo APRN Active FLUTICASONE PROPIONATE 50 MCG/ACT SUSP 2 sprays each nostril daily before bed. FLUTICASONE PROPIONATE 01424656655 No Longer Active Suzan Boo APRN Active ASPIRIN 325 MG ORAL TABS 1 tab q.d ASPIRIN 26421225372 No Longer Active Suzan Boo APRN Active HALOPERIDOL 10 MG ORAL TABS 1 tab q.d HALOPERIDOL 09442431648 No Longer Active Suzan Boo APRN Active GUAIFENESIN-CODEINE 100-10 MG/5ML SYRP 5ml every 4 to 6 hours as needed for cough GUAIFENESIN-CODEINE 08074311558 No Longer Active Suzan Boo APRN Active ZITHROMAX Z-EARNEST 250 MG TABS 2 today and then 1 daily for 4 days AZITHROMYCIN 31672639187 No Longer Active Suzan Boo APRN Active CLONAZEPAM 1 MG ORAL TABS 1 twice a day and an additional 1 tablet every other day as needed for pseudoseizures or anxiety CLONAZEPAM 47974395332 Active Suzan Boo APRN Active HYDROCODONE-ACETAMINOPHEN 5-325 MG ORAL TABS 1 tab two times a day HYDROCODONE-ACETAMINOPHEN 54407622126 No Longer Active Ahmet Carbajal MD Active LAMICTAL 100 MG ORAL TABS 1 tab 2 times qd. LAMOTRIGINE 77933989486 Active Ahmet Carbajal MD Active PREDNISONE 20 MG TABS 2 daily for 5 days then 1 daily for 5 days PREDNISONE 27129480524 No Longer Active Ahmet Carbajal MD Active FLUTICASONE PROPIONATE 50 MCG/ACT SUSP 1 to 2 sprays each nostril daily for allergies FLUTICASONE PROPIONATE 97490510977 Active Tila Valenzuela Active BENADRYL 25 MG CAP 4 po at bedtime for insomnia DIPHENHYDRAMINE HCL 82110281873 No Longer Active Ahmet Carbajal MD Active ADVAIR DISKUS 250-50 MCG/DOSE INH AEPB 1 puff twice a day for asthma FLUTICASONE-SALMETEROL 89150228252 No Longer Active Ahmet Carbajal MD Active KLONOPIN 1 MG ORAL TABS 1 tab po TID CLONAZEPAM 27421113214 No Longer Active Ahmet Carbajal MD Active ABILIFY MAINTENA 400 MG IM SUSR 400mg injection every 26 days ARIPIPRAZOLE 07525752037 No Longer Active Ahmet Carbajal MD Active TRAMADOL HCL 50 MG TABS 1/2-1 tab TID PRN TRAMADOL HCL 88244752654 No Longer Active Ahmet Carbajal MD Active BACTRIM DS 800-160 MG TABS 1 twice a day SULFAMETHOXAZOLE- TRIMETHOPRIM 95082791419 No Longer Active Ahmet Carbajal MD Active PROAIR HFA 108 (90 BASE) MCG/ACT AERS 2 puffs four times a day as needed 2015 ALBUTEROL SULFATE 31853717726 Active 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 MONISTAT 7 COMBO PACK WOODROW 100 & 2 MG-% (9GM) VAG KIT 1 applicatorful per vagina q pm x 7 MICONAZOLE NITRATE 84202512010 No Longer Active Ahmet Carbajal MD Active FLAGYL 500 MG TAB 1 tablet by mouth bid METRONIDAZOLE 80424382842 No Longer Active Ahmet Carbajal MD Active OXYCODONE HCL ER 10 MG ORAL T12A 1/2 tab by mouth every 4 hours prn OXYCODONE HCL 43690054727 No Longer Active Ahmet Carbajal MD Active METHYLPREDNISOLONE 4 MG ORAL TABS po daily METHYLPREDNISOLONE 78611418730 No Longer Active Ahmet Carbajal MD Active LEVOFLOXACIN 500 MG ORAL TABS po daily LEVOFLOXACIN 83332827237 No Longer Active Ahmet Carbajal MD Active VIIBRYD 10 MG ORAL TABS Take 1 tablet once a day VILAZODONE HCL 84942778896 No Longer Active Ahmet Carbajal MD Active TOPAMAX 50 MG ORAL TABS 1 tab twice daily TOPIRAMATE 41259366151 No Longer Active Ahmet Carbajal MD Active DICLOFENAC SODIUM 50 MG TBEC 1 tablet by mouth four times daily PRN Pain 2015 DICLOFENAC SODIUM 21123867774 No Longer Active Ahmet Carbajal MD Active ADZENYS XR-ODT 6.3 MG ORAL TBED 1 tab po daily for ADHD AMPHETAMINE 38512453392 No Longer Active Ahmet Carbajal MD Active CHANTIX 1 MG TABS 1 twice a day to help quit smoking VARENICLINE TARTRATE 06010738256 No Longer Active Dipika Burgos MD Active CHANTIX STARTING MONTH EARNEST 0.5 MG X 11 & 1 MG X 42 TABS take as directed 2015 VARENICLINE TARTRATE 58929834325 No Longer Active Dipika Burgos MD Active TESSALON PERLES 100 MG CAP 1 to 2 tablets by mouth 3 times daily as needed for cough BENZONATATE 58387554084 No Longer Active 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 APRN Active IMITREX 50 MG ORAL TABS 0.5 po x 1 PRN Headache. May repeat dose x 1 in 2 hours if needed SUMATRIPTAN SUCCINATE 66972045772 Active Ahmet Carbajal MD Active HYDROCODONE-ACETAMINOPHEN 5-325 MG TABS 1 to 2 four times a day as needed for pain use until can be seen by specialist HYDROCODONE- ACETAMINOPHEN 30195591848 No Longer Active Vishal uHi MD Active PROAIR HFA 108 (90 BASE) MCG/ACT AERS 2 puffs four times a day as needed 2015 ALBUTEROL SULFATE 82261498594 No Longer Active Vishal Hui MD Active PREDNISONE 20 MG TABS 2 daily for 5 days then 1 daily for 5 days PREDNISONE 62644880491 No Longer Active Vishal Hui MD Active ZITHROMAX Z-EARNEST 250 MG TABS 2 today and then 1 daily for 4 days AZITHROMYCIN 96633620424 No Longer Active Vishal Hui MD Active DICLOFENAC POTASSIUM TABS Take 1 tablet twice a day (pt. is not sure of the dose.) DICLOFENAC POTASSIUM TABS 07969084499 No Longer Active Vishal Hui MD Active VERAPAMIL HCL ER 120 MG ORAL CR-TABS Take 1 tablet by mouth twice a day. VERAPAMIL HCL 73700766875 Active Vishal Hui MD Active FLAGYL 500 MG TAB 1 tablet by mouth bid METRONIDAZOLE 92019331634 No Longer Active Vishal Hui MD Active VALIUM 5 MG TAB Take 1-2 tablets daily DIAZEPAM 12804693546 No Longer Active Fabiola Johnson APRN Active METOPROLOL TARTRATE 25 MG ORAL TABS 1/2 tablet twice daily for heart rate and blood pressure METOPROLOL TARTRATE 66877201015 No Longer Active Fabiola Johnson APRN Active MIRALAX ORAL POWD 17GMS DAILY IN WATER POLYETHYLENE GLYCOL 3350 90917360106 Active TAMARA Casey Active MIRALAX PACK 1 po qd PRN Constipation POLYETHYLENE GLYCOL 3350 04310292114 No Longer Active Ahmet Carbajal MD Active MINIPRESS 2 MG CAPS 4 cap po at night PRAZOSIN HCL 36265135546 No Longer Active Ahmet Carbajal MD Active PIROXICAM 20 MG CAPS 1 cap po qd PRN Pain PIROXICAM 89486452409 No Longer Active Ahmet Carbajal MD Active TRAMADOL HCL 50 MG TABS 1-2 po TID PRN Pain TRAMADOL HCL 57621602671 No Longer Active Ahmet Carbajal MD Active METOPROLOL TARTRATE 50 MG TAB 1 po bid METOPROLOL TARTRATE 02147557185 No Longer Active Ahmet Carbajal MD Active ABILIFY 15 MG ORAL TABS 1 tab daily ARIPIPRAZOLE 51524920321 No Longer Active Ahmet Carbajal MD Active PROZAC 20 MG ORAL CAPS 1 tab daily FLUOXETINE HCL 19727293140 No Longer Active Ahmet Carbajal MD Active AMBIEN 5 MG ORAL TABS 1 tab at bedtime ZOLPIDEM TARTRATE 48634110393 No Longer Active Ahmet Carbajal MD Active PREDNISONE 20 MG TAB 2 tabs daily for 4 days, 1 tab daily for 4 days, 1/2 tab daily for 4 days PREDNISONE 01383905364 No Longer Active Ahmet Carbajal MD Active KEFLEX 500 MG CAP 1 po TID x 10 days CEPHALEXIN 02423542498 No Longer Active Vishal Hui MD Active SAPHRIS 5 MG SUBL 1 po bid ASENAPINE MALEATE 41892801005 No Longer Active 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 APRN Active LATUDA 80 MG TABS Take one by mouth daily LURASIDONE HCL 17547246950 No Longer Active 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 APRN Active AMLODIPINE BESYLATE 5 MG TABS 1 tablet by mouth daily AMLODIPINE BESYLATE 07885082436 No Longer Active 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 APRN Active AMITRIPTYLINE HCL 100 MG TAB one at hs AMITRIPTYLINE HCL 24568140318 No Longer Active Vishal Hui MD Active TRAZODONE HCL 100 MG TAB take 1 at bedtime TRAZODONE HCL 43012021900 No Longer Active Vishal Hui MD Active VYVANSE 40 MG CAPS 1 daily, LISDEXAMFETAMINE DIMESYLATE 30779806040 No Longer Active Vishal Hui MD Active IBUPROFEN 600 MG TAB 1 po TID PRN IBUPROFEN 31888054369 No Longer Active Vishal Hui MD Active PROZAC 20 MG CAP Take one by mouth daily FLUOXETINE HCL 00910598233 No Longer Active Vishal Hui MD Active BACTRIM DS 800-160 MG TABS 1 pill by mouth twice daily SULFAMETHOXAZOLE-TRIMETHOPRIM 46387943782 No Longer Active Sahara Rodriguez MD PhD Active DIFLUCAN 150 MG TAB 1 tablet by mouth daily FLUCONAZOLE 36196333787 No Longer Active Vishal Hui MD Active TIZANIDINE HCL 4 MG TABS 1 po q6hr PRN Muscle Spasm/Back Pain TIZANIDINE HCL 84136470698 Active TAMARA Casey Active CLINDAMYCIN HCL 150 MG CAPS 1 four times a day CLINDAMYCIN HCL 43236080286 No Longer Active Neeraj Collins MD Active KEFLEX 500 MG ORAL CAPS 1 cap QID by mouth CEPHALEXIN 00298208285 No Longer Active Neeraj Collins MD Active DIFLUCAN 150 MG TABS 1 pill every other day x 2 doses FLUCONAZOLE 84356133271 No Longer Active Sahara Rodriguez MD PhD Active MELATONIN 3 MG CAPS 2 po q hs MELATONIN 81526887745 No Longer Active Sahara Rodriguez MD PhD Active MULTIVITAMINS CAPS Take one by mouth daily MULTIPLE VITAMIN 10751788794 No Longer Active Sahara Rodriguez MD PhD Active BACTRIM DS 800-160 MG TAB 1 tab by mouth twice daily TRIMETHOPRIM-SULFAMETHOXAZOLE 99361348235 No Longer Active Sahara Rodriguez MD PhD Active [facility] PROBIOTIC ORAL CHEW 2 daily po PROBIOTIC PRODUCT 48527901037 No Longer Active Sahara Rodriguez MD PhD Active BACTRIM DS 800-160 MG TABS 1 po BID x 7 days SULFAMETHOXAZOLE-TRIMETHOPRIM 86840804978 No Longer Active Vishal Hui MD Active CHANTIX STARTING MONTH EARNEST 0.5 MG X 11 & 1 MG X 42 TABS 0.5mg daily for 3 days , then 0.5mg BID for 4 days, then 1mg BID VARENICLINE TARTRATE 45974706914 No Longer Active TAMARA Gray Active VERAPAMIL HCL CR 120 MG TAB CR 1 po bid VERAPAMIL HCL 09792078402 No Longer Active Vishal Hui MD Active METOPROLOL SUCCINATE 50 MG TB24 1 tablet by mouth daily METOPROLOL SUCCINATE 96812119588 No Longer Active Vishal Hui MD Active SAPHRIS 10 MG SUBL 1 tab po bid ASENAPINE MALEATE 06008032217 No Longer Active Vishal Hui MD Active LISINOPRIL 20 MG TABS 1 tab po qd LISINOPRIL 81086319319 No Longer Active Vishal Hui MD Active LATUDA 20 MG TABS Take one by mouth daily LURASIDONE HCL 68618063260 No Longer Active Vishal Hui MD Active TRAZODONE HCL 50 MG TABS 1/2 tab po qd prn for anxiety TRAZODONE HCL 65981708089 No Longer Active Vishal Hui MD Active OMEPRAZOLE 20 MG TBEC 1 po q a.m. 30min prior to first food intake OMEPRAZOLE 85331879788 Active Bertha Kirby, RMA Active RANITIDINE HCL 150 MG CAPS 1 twice a day RANITIDINE HCL 90146291048 Active Lynda Xiao [employer]UDENT [employer] DEAN Active LINZESS 290 MCG CAPS Take one by mouth daily LINACLOTIDE 32004943037 No Longer Active Vishal Hui MD Active SAPHRIS 5 MG SUBL 1 tab po qd ASENAPINE MALEATE 80213268485 No Longer Active Vishal Hui MD Active ZALEPLON 10 MG CAPS 1 cap po every other night ZALEPLON 77204188209 No Longer Active Vishal Hui MD Active LYRICA 50 MG CAPS 1 tab po TID PREGABALIN 13244249067 No Longer Active Vishal Hui MD Active LORATADINE 10 MG TABS 1 tab po qd LORATADINE 73685663277 No Longer Active Vishal Hui MD Active VERAPAMIL HCL ER 180 MG CR-TABS 1 tab po bid VERAPAMIL HCL 29434675978 No Longer Active Vishal Hui MD Active MIRALAX POWD 1 capfull once daily POLYETHYLENE GLYCOL 3350 24215690693 No Longer Active Vishal Hui MD Active PREDNISONE 20 MG TABS 1 tab po qd PREDNISONE 25139998545 No Longer Active Renzo Thornton DO Active LEVOFLOXACIN 500 MG TABS 1 tab po qd LEVOFLOXACIN 76979642090 No Longer Active Renzo Thornton DO Active BUSPIRONE HCL 15 MG TABS 1 tab po TID BUSPIRONE HCL 26074879949 No Longer Active Renzo Thornton DO Active BENZTROPINE MESYLATE 1 MG TABS 1 tab po qd BENZTROPINE MESYLATE 19245312020 No Longer Active Renzo Thornton DO Active ATENOLOL 25 MG TABS 1 tab po qd ATENOLOL 52147182551 No Longer Active Renzo Thornton DO Active ESCITALOPRAM OXALATE 20 MG TABS 1 tab po qd ESCITALOPRAM OXALATE 20121324851 No Longer Active Renzo Thornton DO Active ADVAIR DISKUS 250-50 MCG/DOSE AEPB 1 puff BID FLUTICASONE-SALMETEROL 37683434383 No Longer Active Renzo Thornton DO Active PREDNISONE 20 MG TAB 2 tabs daily for 3 days, 1 tab daily for 3 days, 1/2 tab daily for 2 days PREDNISONE 98539205927 No Longer Active Vishal Hui MD Active CEFDINIR 300 MG CAPS by mouth twice a day CEFDINIR 57356856825 No Longer Active Vishal Hui MD Active LANSOPRAZOLE 30 MG CPDR 1 cap po qd LANSOPRAZOLE 58710858237 No Longer Active Vishal Hui MD Active BACLOFEN 20 MG TABS 1 tab po tid BACLOFEN 04354761621 No Longer Active Vishal Hui MD Active ADVAIR DISKUS 250-50 MCG/DOSE AEPB 1 puff BID ADVAIR DISKUS 250-50 MCG/DOSE AEPB FLUTICASONE-SALMETEROL Inactive ESCITALOPRAM OXALATE 20 MG TABS 1 tab po qd ESCITALOPRAM OXALATE 20 MG TABS 333120 ESCITALOPRAM OXALATE Inactive ATENOLOL 25 MG TABS 1 tab po qd ATENOLOL 25 MG TABS 307383 ATENOLOL Inactive BENZTROPINE MESYLATE 1 MG TABS 1 tab po qd BENZTROPINE MESYLATE 1 MG TABS 136220 BENZTROPINE MESYLATE Inactive BUSPIRONE HCL 15 MG TABS 1 tab po TID BUSPIRONE HCL 15 MG TABS 041580 BUSPIRONE HCL Inactive LEVOFLOXACIN 500 MG TABS 1 tab po qd LEVOFLOXACIN 500 MG TABS 257744 LEVOFLOXACIN Inactive PREDNISONE 20 MG TABS 1 tab po qd PREDNISONE 20 MG TABS 545136 PREDNISONE Inactive MIRALAX POWD 1 capfull once daily MIRALAX POWD 551044 POLYETHYLENE GLYCOL 3350 Inactive VERAPAMIL HCL ER 180 MG CR-TABS 1 tab po bid VERAPAMIL HCL ER 180 MG CR-TABS VERAPAMIL HCL Inactive LORATADINE 10 MG TABS 1 tab po qd LORATADINE 10 MG TABS 969190 LORATADINE Inactive LYRICA 50 MG CAPS 1 tab po TID LYRICA 50 MG CAPS PREGABALIN Inactive ZALEPLON 10 MG CAPS 1 cap po every other night ZALEPLON 10 MG CAPS 917592 ZALEPLON Inactive SAPHRIS 5 MG SUBL 1 tab po qd SAPHRIS 5 MG SUBL ASENAPINE MALEATE Inactive TRAZODONE HCL 50 MG TABS 1/2 tab po qd prn for anxiety TRAZODONE HCL 50 MG TABS 610348 TRAZODONE HCL Inactive LATUDA 20 MG TABS Take one by mouth daily LATUDA 20 MG TABS LURASIDONE HCL Inactive LISINOPRIL 20 MG TABS 1 tab po qd LISINOPRIL 20 MG TABS 290466 LISINOPRIL Inactive SAPHRIS 10 MG SUBL 1 [...] twice daily BACTRIM DS 800-160 MG TAB 894198 TRIMETHOPRIM-SULFAMETHOXAZOLE Inactive MULTIVITAMINS CAPS Take one by mouth daily MULTIVITAMINS CAPS MULTIPLE VITAMIN Inactive MELATONIN 3 MG CAPS 2 po q hs MELATONIN 3 MG CAPS 689675 MELATONIN Inactive KEFLEX 500 MG ORAL CAPS 1 cap QID by mouth KEFLEX 500 MG ORAL CAPS 983695 CEPHALEXIN Inactive CLINDAMYCIN HCL 150 MG CAPS 1 four times a day CLINDAMYCIN HCL 150 MG CAPS 051146 CLINDAMYCIN HCL Inactive DIFLUCAN 150 MG TAB 1 tablet by mouth daily DIFLUCAN 150 MG TAB 060455 FLUCONAZOLE Inactive PROZAC 20 MG CAP Take one by mouth daily PROZAC 20 MG CAP 522218 FLUOXETINE HCL Inactive IBUPROFEN 600 MG TAB 1 po TID PRN IBUPROFEN 600 MG TAB 036664 IBUPROFEN Inactive VYVANSE 40 MG CAPS 1 daily, VYVANSE 40 MG CAPS LISDEXAMFETAMINE DIMESYLATE Inactive TRAZODONE HCL 100 MG TAB take 1 at bedtime TRAZODONE HCL 100 MG TAB 359620 TRAZODONE HCL Inactive AMITRIPTYLINE HCL 100 MG TAB one at hs AMITRIPTYLINE HCL 100 MG TAB 713280 AMITRIPTYLINE HCL Inactive AMLODIPINE BESYLATE 5 MG TABS 1 tablet by mouth daily AMLODIPINE BESYLATE 5 MG TABS 085372 AMLODIPINE BESYLATE Inactive LATUDA 80 MG TABS Take one by mouth daily LATUDA 80 MG TABS LURASIDONE HCL Inactive SAPHRIS 5 MG SUBL 1 po bid SAPHRIS 5 MG SUBL ASENAPINE MALEATE Inactive PREDNISONE 20 MG TAB 2 tabs daily for 4 days, 1 tab daily for 4 days, 1/2 tab daily for 4 days PREDNISONE 20 MG TAB 209503 PREDNISONE Inactive AMBIEN 5 MG ORAL TABS 1 tab at bedtime AMBIEN 5 MG ORAL TABS 044276 ZOLPIDEM TARTRATE Inactive PROZAC 20 MG ORAL CAPS 1 tab daily PROZAC 20 MG ORAL CAPS 809918 FLUOXETINE HCL Inactive ABILIFY 15 MG ORAL TABS 1 tab daily ABILIFY 15 MG ORAL TABS 028204 ARIPIPRAZOLE Inactive METOPROLOL TARTRATE 50 MG TAB 1 po bid METOPROLOL TARTRATE 50 MG TAB 997111 METOPROLOL TARTRATE Inactive TRAMADOL HCL 50 MG TABS 1-2 po TID PRN Pain TRAMADOL HCL 50 MG TABS 062401 TRAMADOL HCL Inactive PIROXICAM 20 MG CAPS 1 cap po qd PRN Pain PIROXICAM 20 MG CAPS 822076 PIROXICAM Inactive MINIPRESS 2 MG CAPS 4 cap po at night MINIPRESS 2 MG CAPS 522605 PRAZOSIN HCL Inactive MIRALAX PACK 1 po qd PRN Constipation MIRALAX PACK 109830 POLYETHYLENE GLYCOL 3350 Inactive METOPROLOL TARTRATE 25 MG ORAL TABS 1/2 tablet twice daily for heart rate and blood pressure METOPROLOL TARTRATE 25 MG ORAL TABS 591877 METOPROLOL TARTRATE Inactive VALIUM 5 MG TAB Take 1-2 tablets daily VALIUM 5 MG TAB 469143 DIAZEPAM Inactive FLAGYL 500 MG TAB 1 tablet by mouth bid FLAGYL 500 MG TAB 902085 METRONIDAZOLE Inactive DICLOFENAC POTASSIUM TABS Take 1 tablet twice a day (pt. is not sure of the dose.) DICLOFENAC POTASSIUM TABS DICLOFENAC POTASSIUM TABS Inactive ZITHROMAX Z-EARNEST 250 MG TABS 2 today and then 1 daily for 4 days ZITHROMAX Z-EARNEST 250 MG TABS 1745342 AZITHROMYCIN Inactive PREDNISONE 20 MG TABS 2 daily for 5 days then 1 daily for 5 days PREDNISONE 20 MG TABS 113670 PREDNISONE Inactive PROAIR HFA 108 (90 BASE) MCG/ACT AERS 2 puffs four times a day as needed 2015 PROAIR HFA 108 (90 BASE) MCG/ACT AERS ALBUTEROL SULFATE Inactive HYDROCODONE-ACETAMINOPHEN 5-325 MG TABS 1 to 2 four times a day as needed for pain use until can be seen by specialist HYDROCODONE- ACETAMINOPHEN 5-325 MG TABS 811653 HYDROCODONE-ACETAMINOPHEN Inactive TESSALON PERLES 100 MG CAP 1 to 2 tablets by mouth 3 times daily as needed for cough TESSALON PERLES 100 MG CAP 512992 BENZONATATE Inactive CHANTIX STARTING MONTH EARNEST 0.5 [...] Pain 2015 DICLOFENAC SODIUM 50 MG TBEC 214719 DICLOFENAC SODIUM Inactive TOPAMAX 50 MG ORAL TABS 1 tab twice daily TOPAMAX 50 MG ORAL TABS 714550 TOPIRAMATE Inactive VIIBRYD 10 MG ORAL TABS Take 1 tablet once a day VIIBRYD 10 MG ORAL TABS VILAZODONE HCL Inactive LEVOFLOXACIN 500 MG ORAL TABS po daily LEVOFLOXACIN 500 MG ORAL TABS 748285 LEVOFLOXACIN Inactive METHYLPREDNISOLONE 4 MG ORAL TABS po daily METHYLPREDNISOLONE 4 MG ORAL TABS 882934 METHYLPREDNISOLONE Inactive OXYCODONE HCL ER 10 MG ORAL T12A 1/2 tab by mouth every 4 hours prn OXYCODONE HCL ER 10 MG ORAL T12A OXYCODONE HCL Inactive FLAGYL 500 MG TAB 1 tablet by mouth bid FLAGYL 500 MG TAB 595152 METRONIDAZOLE Inactive MONISTAT 7 COMBO PACK WOODROW 100 & 2 MG-% (9GM) VAG KIT 1 applicatorful per vagina q pm x 7 MONISTAT 7 COMBO PACK WOODROW 100 & 2 MG-% (9GM) VAG KIT MICONAZOLE NITRATE Inactive BACTRIM DS 800-160 MG TABS 1 twice a day BACTRIM DS 800-160 MG TABS 497388 SULFAMETHOXAZOLE-TRIMETHOPRIM Inactive TRAMADOL HCL 50 MG TABS 1/2-1 tab TID PRN TRAMADOL HCL 50 MG TABS 457444 TRAMADOL HCL Inactive ABILIFY MAINTENA 400 MG IM SUSR 400mg injection every 26 days ABILIFY MAINTENA 400 MG IM SUSR ARIPIPRAZOLE Inactive KLONOPIN 1 MG ORAL TABS 1 tab po TID KLONOPIN 1 MG ORAL TABS 414836 CLONAZEPAM Inactive ADVAIR DISKUS 250-50 MCG/DOSE INH AEPB 1 puff twice a day for asthma ADVAIR DISKUS 250-50 MCG/DOSE INH AEPB FLUTICASONE- SALMETEROL Inactive BENADRYL 25 MG CAP 4 po at bedtime for insomnia BENADRYL 25 MG CAP DIPHENHYDRAMINE HCL Inactive PREDNISONE 20 MG TABS 2 daily for 5 days then 1 daily for 5 days PREDNISONE 20 MG TABS [id number] PREDNISONE Inactive HYDROCODONE-ACETAMINOPHEN 5-325 MG ORAL TABS 1 tab two times a day HYDROCODONE-ACETAMINOPHEN 5-325 MG ORAL TABS 267650 HYDROCODONE-ACETAMINOPHEN Inactive ZITHROMAX Z-EARNEST 250 MG TABS 2 today and then 1 daily for 4 days ZITHROMAX Z-EARNEST 250 MG TABS [id number] AZITHROMYCIN Inactive GUAIFENESIN-CODEINE 100-10 MG/5ML SYRP 5ml every 4 to 6 hours as needed for cough GUAIFENESIN-CODEINE 100-10 MG/5ML SYRP 664805 GUAIFENESIN-CODEINE Inactive HALOPERIDOL 10 MG ORAL TABS 1 tab q.d HALOPERIDOL 10 MG ORAL TABS 240263 HALOPERIDOL Inactive ASPIRIN 325 MG ORAL TABS 1 tab q.d ASPIRIN 325 MG ORAL TABS 294513 ASPIRIN Inactive FLUTICASONE PROPIONATE 50 MCG/ACT SUSP 2 sprays each nostril daily before bed. FLUTICASONE PROPIONATE 50 MCG/ACT SUSP [id number] FLUTICASONE PROPIONATE Inactive ZOFRAN 4 MG TABS 1 po q6hr PRN Nausea ZOFRAN 4 MG TABS 491576 ONDANSETRON HCL Inactive KEFLEX 500 MG CAP 1 po qid KEFLEX 500 MG CAP 708165 CEPHALEXIN Inactive ACETAMINOPHEN-CODEINE 120-12 MG/5ML SOLN 5 ml by mouth every 4-6 hours if needed for cough ACETAMINOPHEN-CODEINE 120-12 MG/5ML SOLN 745821 ACETAMINOPHEN-CODEINE Inactive PREDNISONE 20 MG TAB 1 tablet daily x 4 days PREDNISONE 20 MG TAB 611799 PREDNISONE Inactive TROPICAMIDE 0.5 % OPHTH SOLN 1 drop PRN eye spasms TROPICAMIDE 0.5 % OPHTH SOLN 050767 TROPICAMIDE Inactive LEVAQUIN 500 MG TABS 1 daily for infection LEVAQUIN 500 MG TABS 887757 LEVOFLOXACIN Inactive PREDNISONE 10 MG TABS 2 daily for 5 days then 1 daily for 5 days PREDNISONE 10 MG TABS 254155 PREDNISONE Inactive EQ NICOTINE 21 MG/24HR TRANS PT24 Apply daily to stop smoking EQ NICOTINE 21 MG/24HR TRANS PT24 NICOTINE Inactive DIFLUCAN 150 MG TABS 1 by mouth for yeast DIFLUCAN 150 MG TABS 316495 FLUCONAZOLE Inactive BACTRIM DS 800-160 MG TABS 1 twice a day BACTRIM DS 800-160 MG TABS 19820521 SULFAMETHOXAZOLE-TRIMETHOPRIM Inactive TESSALON PERLES 100 MG CAPS 1 three times a day as needed for cough TESSALON PERLES 100 MG CAPS 455869 BENZONATATE Inactive AMITIZA 8 MCG ORAL CAPS 1 tab BID AMITIZA 8 MCG ORAL CAPS LUBIPROSTONE Inactive LINZESS 290 MCG ORAL CAPS 1 tab 30 min prior to first meal each day. LINZESS 290 MCG ORAL CAPS LINACLOTIDE Inactive DIFLUCAN 150 MG TABS 1 by mouth for yeast DIFLUCAN 150 MG TABS 19751126 FLUCONAZOLE Inactive BACTRIM DS 800-160 MG TABS 1 twice a day BACTRIM DS 800-160 MG TABS 19820521 SULFAMETHOXAZOLE-TRIMETHOPRIM Inactive MUPIROCIN 2 % OINT apply twice a day MUPIROCIN 2 % OINT 026222 MUPIROCIN Inactive CEFDINIR 300 MG CAPS by mouth twice a day CEFDINIR 300 MG CAPS 160962 CEFDINIR Inactive PREDNISONE 20 MG TAB 2 tabs daily for 3 days, 1 tab daily for 3 days, 1/2 tab daily for 2 days PREDNISONE 20 MG TAB 789126 PREDNISONE Inactive BACTRIM DS 800-160 MG TABS 1 po BID x 7 days BACTRIM DS 800-160 MG TABS 19820521 SULFAMETHOXAZOLE-TRIMETHOPRIM Inactive DIFLUCAN 150 MG TABS 1 pill every other day x 2 doses DIFLUCAN 150 MG TABS 19751126 FLUCONAZOLE Inactive BACTRIM DS 800-160 MG TABS 1 pill by mouth twice daily BACTRIM DS 800-160 MG TABS 19820521 SULFAMETHOXAZOLE-TRIMETHOPRIM Inactive KEFLEX 500 MG CAP 1 po TID x 10 days KEFLEX 500 MG CAP 936410 CEPHALEXIN Inactive Advance Directives Directive Description Start Date DISCUSSED WITH PATIENT -- NO DECISION MADE Vital Signs Date Name Value Unit Range Description blood pressure, diastolic - 8462-4 90 mm[Hg] BP mcnally blood pressure, systolic - 8480-6 136 mm[Hg] BP sys height E&M - 8302-2 65 [in_us] Bdy height pulse rate E&M - 8867-4 82 /min Heart rate temperature E&M 98.9 [degF] Body temperature weight E&M - 3141-9 260.5 [lb_av] Weight Measured blood pressure, diastolic - 8462-4 87 mm[Hg] BP mcnally blood pressure, systolic - 8480-6 126 mm[Hg] BP sys height E&M - 8302-2 65 [in_us] Bdy height pulse rate E&M - 8867-4 89 /min Heart rate temperature E&M 97.8 [degF] Body temperature weight E&M - 3141-9 269 [lb_av] Weight Measured blood pressure, diastolic - 8462-4 93 mm[Hg] BP mcnally blood pressure, systolic - 8480-6 144 mm[Hg] BP sys pulse rate E&M - 8867-4 100 /min Heart rate temperature E&M 97.5 [degF] Body temperature weight E&M - 3141-9 268.5 [lb_av] Weight Measured blood pressure, diastolic - 8462-4 80 mm[Hg] BP mcnally blood pressure, systolic - 8480-6 126 mm[Hg] BP sys pulse rate E&M - 8867-4 96 /min Heart rate temperature E&M 97.5 [degF] Body temperature weight E&M - 3141-9 267 [lb_av] Weight Measured blood pressure, diastolic - 8462-4 88 mm[Hg] [...] E&M - 3141-9 279 [lb_av] Weight Measured Diagnostic Results Date Name Value Unit Range Description Lab Report: CBC - Hematology leukocyte count, blood 11.0 10^3/MM^3 10*3/mm3 4.6-10.2 erythrocyte (RBC) count 4.65 10^6/MM^3 10*6/mm3 3.80-5.80 hemoglobin, blood 14.7 g/dL 12.0-16.0 hematocrit, blood 42.4 % 37.0-47.0 mean corpuscular volume, RBC 91 fL 80-97 mean corpuscular hemoglobin, RBC 31.7 pg 27.0-31.2 mean corpuscular hemoglobin concentration, RBC 34.8 G/DL % 31.8- 35.4 red blood cell distribution width 12.0 % 13.0-18.0 platelet count 381 10^3/MM^3 10*3/mm3 142-424 Lab Report: CBC (INCLUDES DIFF/PLT)/6399, COMPREHENSIVE METABOLIC [...] % 11.0-15.0 platelet count 443 THOUSAND/UL 10*3/mm3 187-504 3955/03/01 mean platelet volume 8.2 fL 7.5-12.5 leukocyte count, blood 8.4 THOUSAND/UL 10*3/mm3 3.8-10.8 erythrocyte (RBC) count 4.30 MILLION/UL 10*6/mm3 3.80-5.10 hemoglobin, blood 13.5 g/dL 11.7-15.5 hematocrit, blood 39.8 % 35.0-45.0 mean corpuscular volume, RBC 92.5 fL 80.0-100.0 mean corpuscular hemoglobin, RBC 31.4 pg 27.0-33.0 mean corpuscular hemoglobin concentration, RBC 33.9 G/DL % 32.0- 36.0 red blood cell distribution width 13.3 % 11.0-15.0 platelet count 349 THOUSAND/UL 10*3/mm3 643-773 7831/04/12 mean platelet volume 8.4 fL 7.5-12.5 Lab Report: CBC, Thyroid Stimulating [...] 369 10^3/MM^3 10*3/mm3 142-424 Lab Report: Chlamydia/GC APTIMA/29740 - Lab chlamydia DNA probe NOT DETECTED NOT DETECTED Lab Report: Chlamydia/GC APTIMA/41905 - Microbiology Neisseria gonorrhoeae DNA probe NOT DETECTED NOT DETECTED Lab Report: Chlamydia/GC APTIMA/59801, Urinalysis, Complete, with Reflex ... - Lab chlamydia DNA probe NOT DETECTED NOT DETECTED Lab Report: Chlamydia/GC APTIMA/41829, Urinalysis, Complete, with Reflex ... - Microbiology Neisseria gonorrhoeae DNA probe NOT DETECTED NOT DETECTED Lab Report: Chlamydia/GC APTIMA/39825, Urinalysis, Complete, with Reflex ... - Urinalysis microalbumin/total urine volume 2 mg/L Units converted. See lab report for original value. microalbumin/creatinine ratio, urine 9 MCG/MG CREAT mg/L <30 Lab Report: Comp. Metabolic Panel - Chemistry sodium, serum 140 mmol/L 862-529 0085/08/08 carbon dioxide, venous blood 33.7 mmol/L 21.0-32.0 potassium, serum 5.0 mmol/L 3.5-5.2 chloride, serum 103 mmol/L 98-107 blood glucose 80 mg/dL 65-110 urea nitrogen, blood 13 mg/dL 7-18 creatinine, serum 0.88 mg/dL 0.55-1.30 alanine aminotransferase (SGPT), serum 54 U/L 12-78 aspartate aminotransferase (SGOT), serum 29 U/L 15-37 calcium, serum 9.7 mg/dL 8.5-10.1 bilirubin, serum, total 0.30 mg/dL 0.00-1.00 sodium, serum 140 mmol/L 007-535 1691/06/28 carbon dioxide, venous blood 23.8 mmol/L 21.0-32.0 potassium, serum 3.8 mmol/L 3.5-5.2 chloride, serum 104 mmol/L 98-107 blood glucose 78 mg/dL 65-110 urea nitrogen, blood 12 mg/dL 7-18 creatinine, serum 0.86 mg/dL 0.55-1.30 alanine aminotransferase (SGPT), serum 38 U/L -78 aspartate aminotransferase (SGOT), serum 17 U/L 15-37 calcium, serum 9.3 mg/dL 8.5-10.1 bilirubin, serum, total 0.20 mg/dL 0.00-1.00 Lab Report: HEPATITIS PANEL, ACUTE W/REFLE - Chemistry hepatitis B surface antigen NON-REACTIVE NON-REACTIVE Lab Report: UADIP W/MICRO, AUTO - Chemistry RBC, urine, dipstick Negative Negative protein, total urine random Trace mg/dL Negative RBC, urine, dipstick Negative Negative RBC, urine, dipstick 1+ Negative protein, total urine random Negative mg/dL Negative protein, total urine random Negative mg/dL Negative protein, total urine random Negative mg/dL Negative RBC, urine, dipstick Trace-intact Negative Lab Report: UADIP W/MICRO, AUTO - Urinalysis urobilinogen, urine, semiquantitative (dipstick) 0.2 E.U./dL Normal leukocyte esterase, urine, by dipstick Negative Negative nitrite, urine, semiquantitative Negative Negative glucose, urine, semiquantitative Negative Negative ketones, urine, by test strip Negative Negative bilirubin, urine Negative Negative urine color Yellow Colorless;Lightyellow;Straw;Yellow appearance, urine Clear Clear specific gravity, urine <=1.005 1.000-1.030 pH, urine, semiquantitative 5.5 5.0-8.5 glucose, urine, semiquantitative Negative Negative ketones, urine, [...] 1.020 1.000-1.030 pH, urine, semiquantitative 6.0 5.0-8.5 urobilinogen, urine, semiquantitative (dipstick) 0.2 E.U./dL Normal leukocyte esterase, urine, by dipstick Negative Negative nitrite, urine, semiquantitative Negative Negative glucose, urine, semiquantitative Negative Negative ketones, urine, by test strip 1+ Negative bilirubin, urine 1+ Negative urobilinogen, urine, semiquantitative (dipstick) 0.2 Normal leukocyte esterase, urine, by dipstick Trace Negative nitrite, urine, semiquantitative Negative Negative urine color Yellow Colorless;Lightyellow;Straw;Yellow appearance, urine Clear Clear specific gravity, urine >=1.030 1.000-1.030 pH, urine, semiquantitative 5.0 5.0-8.5 Encounters Code Encounter Date Provider Facility CPT-64711 Level 3 Est. [facility]55[facility] 10:49:34 [facility] Level 3 Est[facility] Patient 10:00:25 [facility] Level 3 Est. Patient 10:29:30 CDT Suzan Boo [facility] CPT-97508 Level 3 Est. Patient 11:04:38 CDT Renzo Thornton [facility] CPT-32095 Level 3 Est. Patient 11:15:58 [employer] Renzo Thornton [facility] CPT-19789 Level 3 Est. Patient 15:28:23 [employer] Suzan Boo [facility] CPT-86865 Level 4 Est. Patient 10:20:54 [employer] Suzan Boo [facility] CPT-31897 Level 3 Est. Patient 11:47:37 [employer] Ahmet Carbajal MD [facility] CPT-27347 Level 3 Est. Patient 10:40:11 [employer] Ahmet Carbajal MD [facility] CPT-90297 Level 3 Est. Patient 15:07:06 [employer] Neeraj Collins MD [facility] CPT-77555 Level 4 Est. Patient 14:45:00 [employer] Ahmet Carbajal MD [facility] CPT-75379 Level 3 Est. Patient 13:59:59 CDT 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 [facility] CPT-44766 Level 3 Est. Patient 18:18:53 CDT Neeraj Collins MD [facility] CPT-89110 Level 3 Est. Patient 15:50:44 CDT Vishal Hui MD [facility] CPT-20907 Level 3 Est. Patient 11:36:17 CDT Ahmet Carbajal MD [facility] CPT-91003 Level 3 Est. Patient 13:29:16 CDT Vishal Hui MD [facility] CPT-05201 Level 3 Est. Patient 14:27:52 CDT Neeraj Collins MD [facility] CPT-49266 Level 3 Est. Patient 08:56:03 CDT 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 [facility] CPT-99739 Level 4 Est. Patient 12:11:48 CDT Fabiola Johnson [facility] CPT-79955 Level 3 New Patient 16:53:37 CDT Albert Caldera MD [facility] CPT-73392 Level 3 Est. Patient 11:25:49 CDT Renzo Thornton DO [facility] CPT-99951 Level 3 Est. Patient 15:22:01 CDT Ahmet Carbajal MD [facility] CPT-11492 Level 4 Est. Patient 09:00:51 [employer] Vishal Hui MD [facility] CPT-11510 Level 3 Est. Patient 11:37:33 [employer] Vishal Hui MD [facility] CPT-12590 Level 3 Est. Patient 08:41:09 [employer] Vishal Hui MD [facility] CPT-80588 Level 4 Est. Patient 10:19:35 [employer] Vishal Hui MD [facility] CPT-11792 Level 3 Est. Patient 13:35:45 CDT Vishal Hui MD [facility] CPT-93280 Level 4 Est. Patient 10:08:37 CDT Vishal Hui MD [facility] CPT-06169 Level 3 Est. Patient 11:22:10 CDT Vishal Hui MD [facility] CPT-74293 Level 3 Est. Patient 11:03:32 CDT Sahara Rodriguez MD PhD [facility]-18664 Level 3 Est. Patient 09:41:35 CDT Vishal Hui MD [facility] CPT-02466 Level 3 Est. Patient 12:00:41 CDT Neeraj Collins MD [facility] CPT-23158 Level 3 Est. Patient 09:16:24 CDT Vishal Hui MD [facility] CPT-87707 Level 4 Est. Patient 13:59:09 CDT Neeraj Collins MD [facility] CPT-89965 Level 3 Est. Patient 15:19:43 CDT Renzo Thornton DO [facility] CPT-01828 Level 3 Est. Patient 18:10:26 CDT Sahara Rodriguez MD PhD [facility] [place]-61009 Level 3 Est. Patient 14:49:50 CDT Vishal Hui MD [facility] CPT-71226 Level 4 Est. Patient 18:41:46 CDT Neeraj Collins MD [facility] CPT-49159 Level 4 Est. Patient 09:18:38 [employer] Vishal Hui MD [facility] CPT-99558 Level 3 Est. Patient 14:43:55 [employer] Vishal Hui MD [facility] CPT-17382 Level 3 Est. Patient 15:26:33 [employer] Sahara Rodriguez MD [facility] CPT-49644 Level 3 Est. Patient 10:32:14 [employer] Vishal Hui MD [facility] CPT-45094 Level 3 Est. Patient 15:12:52 [employer] Vishal Hui MD [facility] CPT-21287 Level 4 Est. Patient 09:19:27 CDT Vishal Hui MD [facility] CPT-74488 Level 3 Est. Patient 15:53:00 CDT Renzo Thornton [facility] CPT-62137 Level 3 Est. Patient 15:50:30 CDT Renzo Thornton [facility] CPT-45831 Level 3 Est. Patient 16:55:24 CDT Vishal Hui MD [facility] Procedures Code Procedure Name Date Entry Date Standard Description CPT-53752 EKG Trac and Interp - XRAY USE ONLY 15:59:30 CDT 09/13 CPT-79378 Chest 1V Frontal - XRAY USE ONLY 15:59:30 CDT CPT-38449 Venipuncture Draw Fee 15:44:02 CDT CPT-60596 Venipuncture Draw Fee 08:41:12 CDT CPT-65833 Abd compl w upright - XRAY USE ONLY 10:27:59 CDT 06/28 CPT-99263 Smoking Cessation counseling 11:15:58 [employer] CPT-G0439 [facility] Annual Wellness Exam 09:30:58 [employer] CPT-40142 TSH - LAB USE ONLY 08:50:26 [employer] CPT-78243 CBC - LAB USE ONLY 08:50:26 [employer] CPT-12006 Venipuncture Draw Fee 08:50:26 [employer] CPT-72610 Abx/Therapy Injection 17:34:30 [employer] CPT-84073 Nexplanon Removal with Reinsertion 14:09:32 CDT CPT-J7307 Nexplanon (Implant) 14:09:32 CDT CPT-OV Office Visit 14:09:32 CDT CPT-78219 UA w micro - LAB USE ONLY 16:21:13 CDT CPT-35295 Wet Mount - LAB USE ONLY 16:21:13 CDT CPT-03015 First Vx - Ix admin for Medicare patients 14:37:47 CDT CPT-27317 Fluzone Preservative Free Intramuscular Suspension 14:37 :47 CDT CPT-41566 Abx/Therapy Injection 13:54:22 CDT CPT-36749 Abx/Therapy Injection 08:47:09 CDT CPT-41450 Abx/Therapy Injection 13:29:56 CDT CPT-48488 Abx/Therapy Injection 08:36:16 CDT CPT-46832 Wet Mount - LAB USE ONLY 17:44:58 CDT CPT-67159 UA w micro - LAB USE ONLY 17:44:58 CDT CPT-24590 CMP - LAB USE ONLY 17:44:58 CDT CPT-93150 Venipuncture Draw Fee 17:44:58 CDT CPT-01247 Cervical Min 4V - XRAY USE ONLY 09:01:40 CDT CPT-54662 Chest 2V Frontal and Lat - XRAY USE ONLY 11:06:31 CDT CPT-27455 EKG Trac and Interp - XRAY USE ONLY 11:31:43 CDT 08/26 CPT-J3420 Vitamin B12 1000mcg (Cyanocobalamin) 08:10:26 [employer] 04/12 CPT-78035 Abx/Therapy Injection 08:10:26 [employer] CPT-G0438 Initial Annual Wellness Exam 19:01:01 [employer] CPT-J3420 Vitamin B12 1000mcg (Cyanocobalamin) 16:57:46 CDT 08/14 CPT-85077 Recombivax HB Injection Suspension 5 MCG/0.5ML 08:37:50 [employer] CPT-61595 Immunization Single Admin 08:37:50 [employer] CPT-J3420 Vitamin B12 1000mcg (Cyanocobalamin) 08:32:16 [employer] 03/11 CPT-21103 Abx/Therapy Injection 08:32:16 [employer] CPT-63811 Chest 2V Frontal and Lat 11:46:38 [employer] CPT-15470 Venipuncture Draw Fee 09:12:45 [employer] CPT-J3420 Vitamin B12 1000mcg (Cyanocobalamin) 08:50:15 [employer] 02/08 CPT-05050 Abx/Therapy Injection 08:50:15 [employer] CPT-Cryo Cryotherapy 10:19:35 [employer] CPT-000 Give Appropriate Flu Vaccine 09:22:16 CDT CPT-J3420 Vitamin B12 1000mcg (Cyanocobalamin) 19:08:57 CDT 01/11 CPT-68570 Abx/Therapy Injection 19:08:57 CDT CPT-J3420 Vitamin B12 1000mcg (Cyanocobalamin) 08:19:08 CDT 12/11 CPT-62462 Abx/Therapy Injection 08:19:08 CDT CPT-J3420 Vitamin B12 1000mcg (Cyanocobalamin) 14:48:00 CDT 11/09 CPT-74217 Abx/Therapy Injection 14:47:59 CDT CPT-J3420 Vitamin B12 1000mcg (Cyanocobalamin) 08:34:04 CDT 10/09 CPT-87110 Abx/Therapy Injection 08:34:04 CDT CPT-J3420 Vitamin B12 1000mcg (Cyanocobalamin) 09:18:52 CDT 09/11 CPT-67984 Abx/Therapy Injection 09:18:52 CDT CPT-J3420 Vitamin B12 1000mcg (Cyanocobalamin) 08:35:44 CDT 09/04 CPT-03554 Abx/Therapy Injection 08:35:44 CDT CPT-57526 Immunization Single Admin 11:07:16 CDT CPT-11264 Hepatitis B adult IM 11:07:16 CDT CPT-J3420 Vitamin B12 1000mcg (Cyanocobalamin) 11:00:49 CDT 08/28 CPT-J1040 Depo Medrol 80 mg (Methyl Prednisolone Acetate) 11:00: 49 CDT CPT-23143 Abx/Therapy Injection 11:00:49 CDT CPT-J1040 Depo Medrol 80 mg (Methyl Prednisolone Acetate) 09:16: 23 CDT CPT-J3420 Vitamin B12 1000mcg (Cyanocobalamin) 08:27:05 CDT 08/20 CPT-57000 Abx/Therapy Injection 08:27:05 CDT CPT-33464 Recombivax HB Injection Suspension 5 MCG/0.5ML 10:00:41 CDT CPT-69146 Administration single or combination vaccine inc oral 10 :00:41 CDT CPT-84955 Sono transvag pelvis non OB uterus ovaries cervix 16:36: 57 CDT CPT-73632 LS spine comp w obliq 09:50:55 [employer] CPT-00649 Abd compl w upright 09:50:55 [employer] CPT-J1100 Decadron 4mg (Dexamethasone) 15:51:24 [employer] CPT-J1030 Depo Medrol 40 mg (Methyl Prednisolone Acetate) 15:51: 24 [employer] CPT-44700 Abx/Therapy Injection 15:51:24 [employer]ING [employer] CPT-J1100 Decadron 4mg (Dexamethasone) 15:26:33 [employer] CPT-J1030 Depo Medrol 40 mg (Methyl Prednisolone Acetate) 15:26: 33 [employer] CPT-20745 Sono retroperitoneal complete kidneys and bladder 17:15: 30 CDT CPT-65425 Abd compl w upright 16:09:25 CDT CPT-J1100 Decadron 8mg (Dexamethasone) 17:07:57 CDT CPT-74506 Abx/Therapy Injection 17:07:57 CDT CPT-J1100 Decadron 8mg (Dexamethasone) 16:55:24 CDT CPT-55639 Chest 2V Frontal and Lat 16:32:44 CDT
--- OUTSIDE RECORDS SUMMARY | 2016-11-04 10:36 | XMS REPORT | Clinical Summary ---
Author Author Admin, E Organization [facility] Address Unknown Phone Unavailable Allergies, Adverse Reactions, [...] facility Sinus tachycardia 427.89 Resolved Suzan Rajeev C[employer] TOP Other specified cardiac dysrhythmias Schizoaffective disorder 295.70 [...] Active Ahmet Carbajal MD Generalized anxiety disorder Staff Assistant well woman exam V72.31 Active Suzan Boo [...] Impetigo 684 Active Renzo Thornton DO Impetigo Pneumonia, organism unspecified ICD-486 Inactive Vishal Hui MD Flank pain, right ICD-789.09 Inactive Vishal Hui MD G E R D ICD-530.81 Inactive Vishal Hui MD Anxiety Disorder ICD-300.00 Inactive Vishal Hui MD Health screening ICD-V70.0 Inactive Suzan Boo APRN Sinus tachycardia ICD-427.89 Inactive Suzan Boo APRN Abdominal pain ICD-789.00 Inactive Vishal Hui MD Cellulitis ICD-682.9 Jim Hui MD Pelvic pain ICD-625.9 Jim Hui MD Abscess, skin ICD-682.9 Jim Hui MD Physical examination ICD-V70.0 Jim Hui MD 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 Jim Hui MD Smoker/tobacco use disorder-smoking cessation discussed ICD-305.1 Jim Hui MD Vaginitis, candidal ICD-112.1 Jim Hui MD Other abnormal blood chemistry ICD-790.6 Jim Hui MD Vaginitis ICD-616.10 Jim Hui MD Boils, recurrent ICD-680.9 Jim Hui MD Postconcussion syndrome ICD-310.2 Jim Hui MD Nevus, 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 Jim Hui MD Encounter for removal of sutures ICD-V58.32 Jim Hui MD Fatigue ICD-780.79 Jim Hui MD 2014 Hot flashes ICD-627.2 Jim Hui MD Personality change ICD-301.9 Jim Hui MD Leukocytosis ICD-288.60 Jim Hui MD UTI ICD-599.0 Inactive Vishal Hui MD Elevated blood glucose ICD-790.29 Inactive Vishal Hui MD Gait unsteady ICD-781.2 Inactive Albert Caldera MD Lipoma ICD-214.9 Inactive Albert Caldera MD Abdominal pain, RUQ ICD-789.01 Inactive Albert Caldera MD Chest pain, acute ICD-786.50 Inactive Albert Caldera MD Headache, atypical ICD-784.0 Inactive Albert Caldera MD Nocturnal hypoxia ICD-799.02 Inactive Suzan Boo [...] APRN DYSURIA ICD-788.1 Inactive Suzan Boo APRN Localized adiposity ICD-278.1 Inactive Vishal Hui MD Nondisplaced transverse fracture of shaft of left fibula, subsequent encounter for closed fracture with routine healing Inactive Suzan Boo APRN Shortness of breath ICD-786.05 Inactive Vishal Hui MD Cellulitis and abscess of breast ICD-611.0 Inactive Ahmet Carbajal MD Bronchitis, acute ICD-466.0 Inactive Ahmet Carbajal MD Medication List Medication Instructions Start Date Stop Date Generic Name NDC Status Provider Patient Instruction KEFLEX 500 MG CAP 1 po qid CEPHALEXIN 46131889567 Active Renzo Thornton DO Active ACETAMINOPHEN-CODEINE 120-12 MG/5ML SOLN 5 ml by mouth every 4-6 hours if needed for cough ACETAMINOPHEN-CODEINE 29573042839 Active Renzo Thornton DO Active PREDNISONE 20 MG TAB 1 tablet daily x 4 days PREDNISONE 79205160348 Active Renzo Thornton DO Active FLOVENT HFA 110 MCG/ACT AERO 2 puffs inhaled b.i.d. FLUTICASONE PROPIONATE HFA 69234391526 Active Renzo Thornton DO Active TROPICAMIDE 0.5 % OPHTH SOLN 1 drop PRN eye spasms TROPICAMIDE 59231169893 Active Samantha Stephan RMA Active RISPERDAL 4 MG ORAL TABS 1 tab at bedtime RISPERIDONE 87812622527 Active Samantha Stephan RMA Active LEVAQUIN 500 MG TABS 1 daily for infection LEVOFLOXACIN 58196178917 Active Suzan Boo APRN Active TESSALON PERLES 100 MG CAPS 1 three times a day as needed for cough BENZONATATE 85802609876 Active Suzan Boo APRN Active ZOFRAN 4 MG TABS 1 po q6hr PRN Nausea ONDANSETRON HCL No Longer Active Suzan Boo APRN Active FLUTICASONE PROPIONATE 50 MCG/ACT SUSP 2 sprays each nostril daily before bed. FLUTICASONE PROPIONATE 09085620260 No Longer Active Suzan Boo APRN Active ASPIRIN 325 MG ORAL TABS 1 tab q.d ASPIRIN 68542505906 No Longer Active Suzan Boo APRN Active HALOPERIDOL 10 MG ORAL TABS 1 tab q.d HALOPERIDOL 29598204665 No Longer Active Suzan Boo APRN Active GUAIFENESIN-CODEINE 100-10 MG/5ML SYRP 5ml every 4 to 6 hours as needed for cough GUAIFENESIN-CODEINE 74740288442 No Longer Active Suzan Boo APRN Active ZITHROMAX Z-EARNEST 250 MG TABS 2 today and then 1 daily for 4 days AZITHROMYCIN 83657957451 No Longer Active Suzan Boo APRN Active PREDNISONE 10 MG TABS 2 daily for 5 days then 1 daily for 5 days PREDNISONE 27278341798 Active Suzan Boo APRN Active CLONAZEPAM 1 MG ORAL TABS 1 twice a day and an additional 1 tablet every other day as needed for pseudoseizures or anxiety CLONAZEPAM 02679509909 Active Ahmet Carbajal MD Active HYDROCODONE-ACETAMINOPHEN 5-325 MG ORAL TABS 1 tab two times a day HYDROCODONE-ACETAMINOPHEN 88218872939 No Longer Active Ahmet Carbajal MD Active LAMICTAL 100 MG ORAL TABS 1 tab 2 times qd. LAMOTRIGINE 08406568116 Active Ahmet Carbajal MD Active PREDNISONE 20 MG TABS 2 daily for 5 days then 1 daily for 5 days PREDNISONE 41577086539 No Longer Active Ahmet Carbajal MD Active FLUTICASONE PROPIONATE 50 MCG/ACT SUSP 1 to 2 sprays each nostril daily for allergies FLUTICASONE PROPIONATE 12784649286 Active Tila Valenzuela Active BENADRYL 25 MG CAP 4 po at bedtime for insomnia DIPHENHYDRAMINE HCL 85990061476 No Longer Active Ahmet Carbajal MD Active ADVAIR DISKUS 250-50 MCG/DOSE INH AEPB 1 puff twice a day for asthma FLUTICASONE-SALMETEROL 68301563103 No Longer Active Ahmet Carbajal MD Active KLONOPIN 1 MG ORAL TABS 1 tab po TID CLONAZEPAM 49916386638 No Longer Active Ahmet Carbajal MD Active ABILIFY MAINTENA 400 MG IM SUSR 400mg injection every 26 days ARIPIPRAZOLE 89244081499 No Longer Active Ahmet Carbajal MD Active TRAMADOL HCL 50 MG TABS 1/2-1 tab TID PRN TRAMADOL HCL 52826399349 No Longer Active Ahmet Carbajal MD Active BACTRIM DS 800-160 MG TABS 1 twice a day SULFAMETHOXAZOLE- TRIMETHOPRIM 24557796345 No Longer Active Ahmet Carbajal MD Active PROAIR HFA 108 (90 BASE) MCG/ACT AERS 2 puffs four times a day as needed 2015 ALBUTEROL SULFATE 39234034390 Active Ahmet Carbajal MD Active EQ NICOTINE 21 MG/24HR TRANS PT24 Apply daily to stop smoking NICOTINE 87882841132 Active Ahmet Carbajal MD Active MONISTAT 7 COMBO PACK WOODROW 100 & 2 MG-% (9GM) VAG KIT 1 applicatorful per vagina q pm x 7 MICONAZOLE NITRATE 53572676212 No Longer Active Ahmet Carbajal MD Active FLAGYL 500 MG TAB 1 tablet by mouth bid METRONIDAZOLE 97590487978 No Longer Active Ahmet Carbajal MD Active OXYCODONE HCL ER 10 MG ORAL T12A 1/2 tab by mouth every 4 hours prn OXYCODONE HCL 98048642504 No Longer Active Ahmet Carbajal MD Active METHYLPREDNISOLONE 4 MG ORAL TABS po daily METHYLPREDNISOLONE 13023357526 No Longer Active Ahmet Carbajal MD Active LEVOFLOXACIN 500 MG ORAL TABS po daily LEVOFLOXACIN 21231581146 No Longer Active Ahmet Carbajal MD Active VIIBRYD 10 MG ORAL TABS Take 1 tablet once a day VILAZODONE HCL 80445719274 No Longer Active Ahmet Carbajal MD Active TOPAMAX 50 MG ORAL TABS 1 tab twice daily TOPIRAMATE 23793820725 No Longer Active Ahmet Carbajal MD Active DICLOFENAC SODIUM 50 MG TBEC 1 tablet by mouth four times daily PRN Pain 2015 DICLOFENAC SODIUM 92161118437 No Longer Active Ahmet Carbajal MD Active ADZENYS XR-ODT 6.3 MG ORAL TBED 1 tab po daily for ADHD AMPHETAMINE 56476020792 No Longer Active Ahmet Carbajal MD Active CHANTIX 1 MG TABS 1 twice a day to help quit smoking VARENICLINE TARTRATE 99030792804 No Longer Active Dipika Burgos MD Active CHANTIX STARTING MONTH EARNEST 0.5 MG X 11 & 1 MG X 42 TABS take as directed 2015 VARENICLINE TARTRATE 81727139209 No Longer Active Dipika Burgos MD Active TESSALON PERLES 100 MG CAP 1 to 2 tablets by mouth 3 times daily as needed for cough BENZONATATE 60045607453 No Longer Active 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 APRN Active IMITREX 50 MG ORAL TABS 0.5 po x 1 PRN Headache. May repeat dose x 1 in 2 hours if needed SUMATRIPTAN SUCCINATE 27617559803 Active Ahmet Carbajal MD Active HYDROCODONE-ACETAMINOPHEN 5-325 MG TABS 1 to 2 four times a day as needed for pain use until can be seen by specialist HYDROCODONE- ACETAMINOPHEN 07286928832 No Longer Active Vishal Hui MD Active PROAIR HFA 108 (90 BASE) MCG/ACT AERS 2 puffs four times a day as needed 2015 ALBUTEROL SULFATE 55481014442 No Longer Active Vishal Hui MD Active PREDNISONE 20 MG TABS 2 daily for 5 days then 1 daily for 5 days PREDNISONE 91391565271 No Longer Active Vishal Hui MD Active ZITHROMAX Z-EARNEST 250 MG TABS 2 today and then 1 daily for 4 days AZITHROMYCIN 24625769096 No Longer Active Vishal Hui MD Active DICLOFENAC POTASSIUM TABS Take 1 tablet twice a day (pt. is not sure of the dose.) DICLOFENAC POTASSIUM TABS 30949806720 No Longer Active Vishal Hui MD Active VERAPAMIL HCL ER 120 MG ORAL CR-TABS Take 1 tablet by mouth twice a day. VERAPAMIL HCL 13859908364 Active Vishal Hui MD Active FLAGYL 500 MG TAB 1 tablet by mouth bid METRONIDAZOLE 83086661377 No Longer Active Vishal Hui MD Active VALIUM 5 MG TAB Take 1-2 tablets daily DIAZEPAM 04758416896 No Longer Active Fabiola Johnson APRN Active METOPROLOL TARTRATE 25 MG ORAL TABS 1/2 tablet twice daily for heart rate and blood pressure METOPROLOL TARTRATE 42733487295 No Longer Active Fabiola Johnson APRN Active MIRALAX ORAL POWD 17GMS DAILY IN WATER POLYETHYLENE GLYCOL 3350 52686394697 Active ATMARA Casey Active MIRALAX PACK 1 po qd PRN Constipation POLYETHYLENE GLYCOL 3350 86675838545 No Longer Active Ahmet Carbajal MD Active MINIPRESS 2 MG CAPS 4 cap po at night PRAZOSIN HCL 42170588613 No Longer Active Ahmet Carbajal MD Active PIROXICAM 20 MG CAPS 1 cap po qd PRN Pain PIROXICAM 05116872759 No Longer Active Ahmet Carbajal MD Active TRAMADOL HCL 50 MG TABS 1-2 po TID PRN Pain TRAMADOL HCL 67728452865 No Longer Active Ahmet Carbajal MD Active METOPROLOL TARTRATE 50 MG TAB 1 po bid METOPROLOL TARTRATE 84207467040 No Longer Active Ahmet Carbajal MD Active ABILIFY 15 MG ORAL TABS 1 tab daily ARIPIPRAZOLE 41828680950 No Longer Active Ahmet Carbajal MD Active PROZAC 20 MG ORAL CAPS 1 tab daily FLUOXETINE HCL 99991383573 No Longer Active Ahmet Carbajal MD Active AMBIEN 5 MG ORAL TABS 1 tab at bedtime ZOLPIDEM TARTRATE 67174059506 No Longer Active Ahmet Carbajal MD Active PREDNISONE 20 MG TAB 2 tabs daily for 4 days, 1 tab daily for 4 days, 1/2 tab daily for 4 days PREDNISONE 21952256864 No Longer Active Ahmet Carbajal MD Active KEFLEX 500 MG CAP 1 po TID x 10 days CEPHALEXIN 46029767104 No Longer Active Vishal Hui MD Active SAPHRIS 5 MG SUBL 1 po bid ASENAPINE MALEATE 49970038309 No Longer Active Jillina Mauricio CORE SHAPER TOP Active LATUDA 80 MG TABS Take one by mouth daily LURASIDONE HCL 16831257230 No Longer Active Jillina Frazell CORE SHAPER TOP Active AMLODIPINE BESYLATE 5 MG TABS 1 tablet by mouth daily AMLODIPINE BESYLATE 88674947008 No Longer Active Jillina Fradwightl CORE SHAPER TOP Active AMITRIPTYLINE HCL 100 MG TAB one at hs AMITRIPTYLINE HCL 64865669180 No Longer Active Vishal Hui MD Active TRAZODONE HCL 100 MG TAB take 1 at bedtime TRAZODONE HCL 29107276538 No Longer Active Vishal Hui MD Active VYVANSE 40 MG CAPS 1 daily, LISDEXAMFETAMINE DIMESYLATE 25969096529 No Longer Active Vishal Hui MD Active IBUPROFEN 600 MG TAB 1 po TID PRN IBUPROFEN 33116384642 No Longer Active Vishal Hui MD Active PROZAC 20 MG CAP Take one by mouth daily FLUOXETINE HCL 86113256656 No Longer Active Vishal Hui MD Active BACTRIM DS 800-160 MG TABS 1 pill by mouth twice daily SULFAMETHOXAZOLE-TRIMETHOPRIM 73892252437 No Longer Active Sahara Rodriguez MD PhD Active DIFLUCAN 150 MG TAB 1 tablet by mouth daily FLUCONAZOLE 00055698625 No Longer Active Vishal Hui MD Active TIZANIDINE HCL 4 MG TABS 1 po q6hr PRN Muscle Spasm/Back Pain TIZANIDINE HCL 14185777897 Active Vishal Hui MD Active CLINDAMYCIN HCL 150 MG CAPS 1 four times a day CLINDAMYCIN HCL 61395089291 No Longer Active Neeraj Collins MD Active KEFLEX 500 MG ORAL CAPS 1 cap QID by mouth CEPHALEXIN 45147108829 No Longer Active Neeraj Collins MD Active DIFLUCAN 150 MG TABS 1 pill every other day x 2 doses FLUCONAZOLE 55772994221 No Longer Active Sahara Rodriguez MD PhD Active MELATONIN 3 MG CAPS 2 po q hs MELATONIN 44476522346 No Longer Active Sahara Rodriguez MD PhD Active MULTIVITAMINS CAPS Take one by mouth daily MULTIPLE VITAMIN 34267038617 No Longer Active Sahara Rodriguez MD PhD Active BACTRIM DS 800-160 MG TAB 1 tab by mouth twice daily TRIMETHOPRIM-SULFAMETHOXAZOLE 09410964225 No Longer Active Sahara Rodriguez MD PhD Active [facility] PROBIOTIC ORAL CHEW 2 daily po PROBIOTIC PRODUCT 50952764636 No Longer Active Sahara Rodriguez MD PhD Active BACTRIM DS 800-160 MG TABS 1 po BID x 7 days SULFAMETHOXAZOLE-TRIMETHOPRIM 90160601752 No Longer Active Vishal Hui MD Active CHANTIX STARTING MONTH EARNEST 0.5 MG X 11 & 1 MG X 42 TABS 0.5mg daily for 3 days , then 0.5mg BID for 4 days, then 1mg BID VARENICLINE TARTRATE 10734014968 No Longer Active Lisette Scarrow, RMA Active VERAPAMIL HCL CR 120 MG TAB CR 1 po bid VERAPAMIL HCL 62401444364 No Longer Active Vishal Hui MD Active METOPROLOL SUCCINATE 50 MG TB24 1 tablet by mouth daily METOPROLOL SUCCINATE 22033552240 No Longer Active Vishal Hui MD Active SAPHRIS 10 MG SUBL 1 tab po bid ASENAPINE MALEATE 27424652776 No Longer Active Vishal Hui MD Active LISINOPRIL 20 MG TABS 1 tab po qd LISINOPRIL 54945299243 No Longer Active Vishal Hui MD Active LATUDA 20 MG TABS Take one by mouth daily LURASIDONE HCL 19268707337 No Longer Active Vishal Hui MD Active TRAZODONE HCL 50 MG TABS 1/2 tab po qd prn for anxiety TRAZODONE HCL 75932892815 No Longer Active Vishal Hui MD Active OMEPRAZOLE 20 MG TBEC 1 po q a.m. 30min prior to first food intake OMEPRAZOLE 95089402210 Active Bertha Kirby RMA Active RANITIDINE HCL 150 MG CAPS 1 twice a day RANITIDINE HCL 98588554050 Active 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 APRN Active LINZESS 290 MCG CAPS Take one by mouth daily LINACLOTIDE 53839984749 No Longer Active Vishal Hui MD Active SAPHRIS 5 MG SUBL 1 tab po qd ASENAPINE MALEATE 79914418414 No Longer Active Vishal Hui MD Active ZALEPLON 10 MG CAPS 1 cap po every other night ZALEPLON 95754323638 No Longer Active Vishal Hui MD Active LYRICA 50 MG CAPS 1 tab po TID PREGABALIN 19164640126 No Longer Active Vishal Hui MD Active LORATADINE 10 MG TABS 1 tab po qd LORATADINE 83816663766 No Longer Active Vishal Hui MD Active VERAPAMIL HCL ER 180 MG CR-TABS 1 tab po bid VERAPAMIL HCL 88009702307 No Longer Active Vishal Hui MD Active MIRALAX POWD 1 capfull once daily POLYETHYLENE GLYCOL 3350 44526681339 No Longer Active Vishal Hui MD Active PREDNISONE 20 MG TABS 1 tab po qd PREDNISONE 21194473985 No Longer Active Renzo Thornton DO Active LEVOFLOXACIN 500 MG TABS 1 tab po qd LEVOFLOXACIN 62877134122 No Longer Active Renzo Thornton DO Active BUSPIRONE HCL 15 MG TABS 1 tab po TID BUSPIRONE HCL 21133597760 No Longer Active Renzo Thornton DO Active BENZTROPINE MESYLATE 1 MG TABS 1 tab po qd BENZTROPINE MESYLATE 53679796074 No Longer Active Renzo Thornton DO Active ATENOLOL 25 MG TABS 1 tab po qd ATENOLOL 52911970173 No Longer Active Renzo Thornton DO Active ESCITALOPRAM OXALATE 20 MG TABS 1 tab po qd ESCITALOPRAM OXALATE 62275876314 No Longer Active Renzo Thornton DO Active ADVAIR DISKUS 250-50 MCG/DOSE AEPB 1 puff BID FLUTICASONE-SALMETEROL 16498332493 No Longer Active Renzo Thornton DO Active PREDNISONE 20 MG TAB 2 tabs daily for 3 days, 1 tab daily for 3 days, 1/2 tab daily for 2 days PREDNISONE 99684911870 No Longer Active Vishal Hui MD Active CEFDINIR 300 MG CAPS by mouth twice a day CEFDINIR 55640232112 No Longer Active Vishal Hui MD Active LANSOPRAZOLE 30 MG CPDR 1 cap po qd LANSOPRAZOLE 91393621869 No Longer Active Vishal Hui MD Active BACLOFEN 20 MG TABS 1 tab po tid BACLOFEN 44473150071 No Longer Active Vishal Hui MD Active ADVAIR DISKUS 250-50 MCG/DOSE AEPB 1 puff BID ADVAIR DISKUS 250-50 MCG/DOSE AEPB FLUTICASONE-SALMETEROL Inactive ESCITALOPRAM OXALATE 20 MG TABS 1 tab po qd ESCITALOPRAM OXALATE 20 MG TABS 783674 ESCITALOPRAM OXALATE Inactive ATENOLOL 25 MG TABS 1 tab po qd ATENOLOL 25 MG TABS 309784 ATENOLOL Inactive BENZTROPINE MESYLATE 1 MG TABS 1 tab po qd BENZTROPINE MESYLATE 1 MG TABS 703367 BENZTROPINE MESYLATE Inactive BUSPIRONE HCL 15 MG TABS 1 tab po TID BUSPIRONE HCL 15 MG TABS 281631 BUSPIRONE HCL Inactive LEVOFLOXACIN 500 MG TABS 1 tab po qd LEVOFLOXACIN 500 MG TABS 041957 LEVOFLOXACIN Inactive PREDNISONE 20 MG TABS 1 tab po qd PREDNISONE 20 MG TABS 696121 PREDNISONE Inactive MIRALAX POWD 1 capfull once daily MIRALAX POWD 744977 POLYETHYLENE GLYCOL 3350 Inactive VERAPAMIL HCL ER 180 MG CR-TABS 1 tab po bid VERAPAMIL HCL ER 180 MG CR-TABS VERAPAMIL HCL Inactive LORATADINE 10 MG TABS 1 tab po qd LORATADINE 10 MG TABS 722797 LORATADINE Inactive LYRICA 50 MG CAPS 1 tab po TID LYRICA 50 MG CAPS PREGABALIN Inactive ZALEPLON 10 MG CAPS 1 cap po every other night ZALEPLON 10 MG CAPS 851958 ZALEPLON Inactive SAPHRIS 5 MG SUBL 1 tab po qd SAPHRIS 5 MG SUBL ASENAPINE MALEATE Inactive TRAZODONE HCL 50 MG TABS 1/2 tab po qd prn for anxiety TRAZODONE HCL 50 MG TABS 365091 TRAZODONE HCL Inactive LATUDA 20 MG TABS Take one by mouth daily LATUDA 20 MG TABS LURASIDONE HCL Inactive LISINOPRIL 20 MG TABS 1 tab po qd LISINOPRIL 20 MG TABS 538757 LISINOPRIL Inactive SAPHRIS 10 MG SUBL 1 [...] twice daily BACTRIM DS 800-160 MG TAB 739557 TRIMETHOPRIM-SULFAMETHOXAZOLE Inactive MULTIVITAMINS CAPS Take one by mouth daily MULTIVITAMINS CAPS MULTIPLE VITAMIN Inactive MELATONIN 3 MG CAPS 2 po q hs MELATONIN 3 MG CAPS 849239 MELATONIN Inactive KEFLEX 500 MG ORAL CAPS 1 cap QID by mouth KEFLEX 500 MG ORAL CAPS 404892 CEPHALEXIN Inactive CLINDAMYCIN HCL 150 MG CAPS 1 four times a day CLINDAMYCIN HCL 150 MG CAPS 295076 CLINDAMYCIN HCL Inactive DIFLUCAN 150 MG TAB 1 tablet by mouth daily DIFLUCAN 150 MG TAB 536395 FLUCONAZOLE Inactive PROZAC 20 MG CAP Take one by mouth daily PROZAC 20 MG CAP 625624 FLUOXETINE HCL Inactive IBUPROFEN 600 MG TAB 1 po TID PRN IBUPROFEN 600 MG TAB 046544 IBUPROFEN Inactive VYVANSE 40 MG CAPS 1 daily, VYVANSE 40 MG CAPS LISDEXAMFETAMINE DIMESYLATE Inactive TRAZODONE HCL 100 MG TAB take 1 at bedtime TRAZODONE HCL 100 MG TAB 385071 TRAZODONE HCL Inactive AMITRIPTYLINE HCL 100 MG TAB one at hs AMITRIPTYLINE HCL 100 MG TAB 201552 AMITRIPTYLINE HCL Inactive AMLODIPINE BESYLATE 5 MG TABS 1 tablet by mouth daily AMLODIPINE BESYLATE 5 MG TABS 778674 AMLODIPINE BESYLATE Inactive LATUDA 80 MG TABS Take one by mouth daily LATUDA 80 MG TABS LURASIDONE HCL Inactive SAPHRIS 5 MG SUBL 1 po bid SAPHRIS 5 MG SUBL ASENAPINE MALEATE Inactive PREDNISONE 20 MG TAB 2 tabs daily for 4 days, 1 tab daily for 4 days, 1/2 tab daily for 4 days PREDNISONE 20 MG TAB 886041 PREDNISONE Inactive AMBIEN 5 MG ORAL TABS 1 tab at bedtime AMBIEN 5 MG ORAL TABS 850694 ZOLPIDEM TARTRATE Inactive PROZAC 20 MG ORAL CAPS 1 tab daily PROZAC 20 MG ORAL CAPS 155675 FLUOXETINE HCL Inactive ABILIFY 15 MG ORAL TABS 1 tab daily ABILIFY 15 MG ORAL TABS 252554 ARIPIPRAZOLE Inactive METOPROLOL TARTRATE 50 MG TAB 1 po bid METOPROLOL TARTRATE 50 MG TAB 185643 METOPROLOL TARTRATE Inactive TRAMADOL HCL 50 MG TABS 1-2 po TID PRN Pain TRAMADOL HCL 50 MG TABS 413050 TRAMADOL HCL Inactive PIROXICAM 20 MG CAPS 1 cap po qd PRN Pain PIROXICAM 20 MG CAPS 571689 PIROXICAM Inactive MINIPRESS 2 MG CAPS 4 cap po at night MINIPRESS 2 MG CAPS 733402 PRAZOSIN HCL Inactive MIRALAX PACK 1 po qd PRN Constipation MIRALAX PACK 120682 POLYETHYLENE GLYCOL 3350 Inactive METOPROLOL TARTRATE 25 MG ORAL TABS 1/2 tablet twice daily for heart rate and blood pressure METOPROLOL TARTRATE 25 MG ORAL TABS 027659 METOPROLOL TARTRATE Inactive VALIUM 5 MG TAB Take 1-2 tablets daily VALIUM 5 MG TAB 061248 DIAZEPAM Inactive FLAGYL 500 MG TAB 1 tablet by mouth bid FLAGYL 500 MG TAB 041294 METRONIDAZOLE Inactive DICLOFENAC POTASSIUM TABS Take 1 tablet twice a day (pt. is not sure of the dose.) DICLOFENAC POTASSIUM TABS DICLOFENAC POTASSIUM TABS Inactive ZITHROMAX Z-EARNEST 250 MG TABS 2 today and then 1 daily for 4 days ZITHROMAX Z-EARNEST 250 MG TABS 9424721 AZITHROMYCIN Inactive PREDNISONE 20 MG TABS 2 daily for 5 days then 1 daily for 5 days PREDNISONE 20 MG TABS 197030 PREDNISONE Inactive PROAIR HFA 108 (90 BASE) MCG/ACT AERS 2 puffs four times a day as needed 2015 PROAIR HFA 108 (90 BASE) MCG/ACT AERS ALBUTEROL SULFATE Inactive HYDROCODONE-ACETAMINOPHEN 5-325 MG TABS 1 to 2 four times a day as needed for pain use until can be seen by specialist HYDROCODONE- ACETAMINOPHEN 5-325 MG TABS 709952 HYDROCODONE-ACETAMINOPHEN Inactive TESSALON PERLES 100 MG CAP 1 to 2 tablets by mouth 3 times daily as needed for cough TESSALON PERLES 100 MG CAP 483417 BENZONATATE Inactive CHANTIX STARTING MONTH EARNEST 0.5 [...] Pain 2015 DICLOFENAC SODIUM 50 MG TBEC 941774 DICLOFENAC SODIUM Inactive TOPAMAX 50 MG ORAL TABS 1 tab twice daily TOPAMAX 50 MG ORAL TABS 503841 TOPIRAMATE Inactive VIIBRYD 10 MG ORAL TABS Take 1 tablet once a day VIIBRYD 10 MG ORAL TABS VILAZODONE HCL Inactive LEVOFLOXACIN 500 MG ORAL TABS po daily LEVOFLOXACIN 500 MG ORAL TABS 233677 LEVOFLOXACIN Inactive METHYLPREDNISOLONE 4 MG ORAL TABS po daily METHYLPREDNISOLONE 4 MG ORAL TABS 231677 METHYLPREDNISOLONE Inactive OXYCODONE HCL ER 10 MG ORAL T12A 1/2 tab by mouth every 4 hours prn OXYCODONE HCL ER 10 MG ORAL T12A OXYCODONE HCL Inactive FLAGYL 500 MG TAB 1 tablet by mouth bid FLAGYL 500 MG TAB 965903 METRONIDAZOLE Inactive MONISTAT 7 COMBO PACK WOODROW 100 & 2 MG-% (9GM) VAG KIT 1 applicatorful per vagina q pm x 7 MONISTAT 7 COMBO PACK WOODROW 100 & 2 MG-% (9GM) VAG KIT MICONAZOLE NITRATE Inactive BACTRIM DS 800-160 MG TABS 1 twice a day BACTRIM DS 800-160 MG TABS 020100 SULFAMETHOXAZOLE-TRIMETHOPRIM Inactive TRAMADOL HCL 50 MG TABS 1/2-1 tab TID PRN TRAMADOL HCL 50 MG TABS 138723 TRAMADOL HCL Inactive ABILIFY MAINTENA 400 MG IM SUSR 400mg injection every 26 days ABILIFY MAINTENA 400 MG IM SUSR ARIPIPRAZOLE Inactive KLONOPIN 1 MG ORAL TABS 1 tab po TID KLONOPIN 1 MG ORAL TABS 741489 CLONAZEPAM Inactive ADVAIR DISKUS 250-50 MCG/DOSE INH AEPB 1 puff twice a day for asthma ADVAIR DISKUS 250-50 MCG/DOSE INH AEPB FLUTICASONE- SALMETEROL Inactive BENADRYL 25 MG CAP 4 po at bedtime for insomnia BENADRYL 25 MG CAP DIPHENHYDRAMINE HCL Inactive PREDNISONE 20 MG TABS 2 daily for 5 days then 1 daily for 5 days PREDNISONE 20 MG TABS 140952 PREDNISONE Inactive HYDROCODONE-ACETAMINOPHEN 5-325 MG ORAL TABS 1 tab two times a day HYDROCODONE-ACETAMINOPHEN 5-325 MG ORAL TABS 686399 HYDROCODONE-ACETAMINOPHEN Inactive ZITHROMAX Z-EARNEST 250 MG TABS 2 today and then 1 daily for 4 days ZITHROMAX Z-EARNEST 250 MG TABS 4866113 AZITHROMYCIN Inactive GUAIFENESIN-CODEINE 100-10 MG/5ML SYRP 5ml every 4 to 6 hours as needed for cough GUAIFENESIN-CODEINE 100-10 MG/5ML SYRP 209639 GUAIFENESIN-CODEINE Inactive HALOPERIDOL 10 MG ORAL TABS 1 tab q.d HALOPERIDOL 10 MG ORAL TABS 337170 HALOPERIDOL Inactive ASPIRIN 325 MG ORAL TABS 1 tab q.d ASPIRIN 325 MG ORAL TABS 806678 ASPIRIN Inactive FLUTICASONE PROPIONATE 50 MCG/ACT SUSP 2 sprays each nostril daily before bed. FLUTICASONE PROPIONATE 50 MCG/ACT SUSP 0358501 FLUTICASONE PROPIONATE Inactive ZOFRAN 4 MG TABS 1 po q6hr PRN Nausea ZOFRAN 4 MG TABS 195160 ONDANSETRON HCL Inactive CEFDINIR 300 MG CAPS by mouth twice a day CEFDINIR 300 MG CAPS 107968 CEFDINIR Inactive PREDNISONE 20 MG TAB 2 tabs daily for 3 days, 1 tab daily for 3 days, 1/2 tab daily for 2 days PREDNISONE 20 MG TAB 894677 PREDNISONE Inactive BACTRIM DS 800-160 MG TABS 1 po BID x 7 days BACTRIM DS 800-160 MG TABS 19820521 SULFAMETHOXAZOLE-TRIMETHOPRIM Inactive DIFLUCAN 150 MG TABS 1 pill every other day x 2 doses DIFLUCAN 150 MG TABS 693703 FLUCONAZOLE Inactive BACTRIM DS 800-160 MG TABS 1 pill by mouth twice daily BACTRIM DS 800-160 MG TABS [id number] SULFAMETHOXAZOLE-TRIMETHOPRIM Inactive KEFLEX 500 MG CAP 1 po TID x 10 days KEFLEX 500 MG CAP [id number] CEPHALEXIN Inactive Advance Directives Directive Description Start [...] DIFF/PLT)/6399, COMPREHENSIVE METABOLIC PANEL, ... - Hematology red blood cell distribution width 12.9 % 11.0-15.0 platelet count 443 THOUSAND/UL 10*3/mm3 707-731 1316/03/01 mean platelet volume 8.2 fL 7.5-12.5 leukocyte count, blood 16.6 THOUSAND/UL 10*3/mm3 3.8-10.8 erythrocyte (RBC) count 4.46 MILLION/UL 10*6/mm3 3.80-5.10 hemoglobin, blood 13.3 g/dL 11.7-15.5 hematocrit, blood 40.7 % 35.0-45.0 mean corpuscular volume, RBC 91.4 fL 80.0-100.0 mean corpuscular hemoglobin, RBC 29.9 pg 27.0-33.0 mean corpuscular hemoglobin concentration, RBC 32.8 G/DL % 32.0- 36.0 Lab Report: CBC, Thyroid Stimulating Hormone (L) [...] 369 10^3/MM^3 10*3/mm3 142-424 Lab Report: Chlamydia/GC APTIMA/53413 - Lab chlamydia DNA probe NOT DETECTED NOT DETECTED Lab Report: Chlamydia/GC APTIMA/65566 - Microbiology Neisseria gonorrhoeae DNA probe NOT DETECTED NOT DETECTED Lab Report: Chlamydia/GC APTIMA/78599, Urinalysis, Complete, with Reflex ... - Lab chlamydia DNA probe NOT DETECTED NOT DETECTED Lab Report: Chlamydia/GC APTIMA/27100, Urinalysis, Complete, with Reflex ... - Microbiology Neisseria gonorrhoeae DNA probe NOT DETECTED NOT DETECTED Lab Report: Chlamydia/GC APTIMA/30192, Urinalysis, Complete, with Reflex ... - Urinalysis microalbumin/total urine volume 2 mg/L Units converted. See lab report for original value. microalbumin/creatinine ratio, urine 9 MCG/MG CREAT mg/L <30 Lab Report: Comp. Metabolic Panel - Chemistry blood glucose 95 mg/dL 65-110 chloride, serum 105 mmol/L 98-107 potassium, serum 4.0 mmol/L 3.5-5.2 carbon dioxide, venous blood 27.6 mmol/L 21.0-32.0 sodium, serum 142 mmol/L 599-894 0132/06/08 calcium, serum 9.4 mg/dL 8.5-10.1 aspartate aminotransferase (SGOT), serum 28 U/L 15-37 alanine aminotransferase (SGPT), serum 49 U/L -78 creatinine, serum 0.75 mg/dL 0.55-1.30 urea nitrogen, blood 8 mg/dL 7-18 sodium, serum 140 mmol/L 463-985 8016/08/08 carbon dioxide, venous blood 33.7 mmol/L 21.0-32.0 potassium, serum 5.0 mmol/L 3.5-5.2 chloride, serum 103 mmol/L 98-107 blood glucose 80 mg/dL 65-110 urea nitrogen, blood 13 mg/dL 7-18 creatinine, serum 0.88 mg/dL 0.55-1.30 alanine aminotransferase (SGPT), serum 54 U/L -78 aspartate aminotransferase (SGOT), serum 29 U/L 15-37 calcium, serum 9.7 mg/dL 8.5-10.1 bilirubin, serum, total 0.30 mg/dL 0.00-1.00 bilirubin, serum, total 0.30 mg/dL 0.00-1.00 Lab Report: UADIP W/MICRO, AUTO - Chemistry protein, total urine random Negative mg/dL Negative RBC, urine, dipstick 1+ Negative RBC, urine, dipstick Negative Negative protein, total urine random Negative mg/dL Negative Lab Report: UADIP W/MICRO, AUTO - Urinalysis glucose, urine, semiquantitative Negative Negative urobilinogen, urine, semiquantitative (dipstick) 0.2 Normal leukocyte esterase, urine, by dipstick Trace Negative ketones, urine, by test strip Negative Negative bilirubin, urine Negative Negative urobilinogen, urine, semiquantitative (dipstick) 0.2 Normal leukocyte esterase, urine, by dipstick Negative Negative urine color Yellow Colorless;Lightyellow;Straw;Yellow nitrite, urine, semiquantitative Negative Negative appearance, urine Clear Clear specific gravity, urine 1.025 1.000-1.030 pH, urine, semiquantitative 6.0 5.0-8.5 glucose, urine, semiquantitative Negative Negative ketones, urine, by test strip Negative Negative bilirubin, urine Negative Negative urine color Yellow Colorless;Lightyellow;Straw;Yellow nitrite, urine, semiquantitative Negative Negative appearance, urine Clear Clear specific gravity, urine 1.020 1.000-1.030 pH, urine, semiquantitative 6.0 5.0-8.5 Office Visit: Consult for Painful Lipoma - Basic LDL target level 100 mg/dL Office Visit: Consult for Painful Lipoma - Chemistry cholesterol, target level 200 mg/dL triglyceride, target level 200 mg/dL HDL cholesterol, serum, target level 35 mg/dL Encounters Code Encounter Date Provider Facility CPT-91895 Level 3 Est. Patient 11:04:38 CDT Renzo W Norberto [facility] CPT-85561 Level 3 Est. Patient 11:15:58 DISPERSION MIXER Renzo Thornton [facility] CPT-36421 Level 3 Est. Patient 15:28:23 DISPERSION MIXER [facility] CPT-35631 Level 4 Est. Patient 10:20:54 DISPERSION MIXER [facility] CPT-17360 Level 3 Est. Patient 11:47:37 DISPERSION MIXER Ahmet Carbajal MD [facility] CPT-00745 Level 3 Est. Patient 10:40:11 DISPERSION MIXER Ahmet Carbajal MD [facility] CPT-99617 Level 3 Est. Patient 15:07:06 DISPERSION MIXER Neeraj Collins MD [facility] CPT-12399 Level 4 Est. Patient 14:45:00 DISPERSION MIXER Ahmet Carbajal MD [facility] CPT-58080 Level 3 Est. Patient 13:59:59 CDT 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 CPT-61234 Level 3 Est. Patient 18:18:53 CDT Neeraj Collins MD [facility] CPT-78837 Level 3 Est. Patient 15:50:44 CDT Vishal Hui MD [facility] CPT-22386 Level 3 Est. Patient 11:36:17 CDT Ahmet Carbajal MD [facility] CPT-86995 Level 3 Est. Patient 13:29:16 CDT Vishal Hui MD [facility] CPT-72225 Level 3 Est. Patient 14:27:52 CDT Neeraj Collins MD [facility]-58636 Level 3 Est. Patient 08:56:03 CDT 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 CPT-66137 Level 4 Est. Patient 12:11:48 CDT [facility] CPT-61860 Level 3 New Patient 16:53:37 CDT Albert Caldera MD [facility] CPT-57487 Level 3 Est. Patient 11:25:49 CDT Renzo Thornton [facility] CPT-05876 Level 3 Est. Patient 15:22:01 CDT Ahmet Carbajal MD [facility] CPT-20511 Level 4 Est. Patient 09:00:51 DISPERSION MIXER Vishal Hui MD [facility] CPT-12715 Level 3 Est. Patient 11:37:33 DISPERSION MIXER Vishal Hui MD [facility] CPT-00911 Level 3 Est. Patient 08:41:09 DISPERSION MIXER Vishal Hui MD [facility] CPT-15247 Level 4 Est. Patient 10:19:35 DISPERSION MIXER Vishal Hui MD [facility] CPT-92424 Level 3 Est. Patient 13:35:45 CDT Vishal Hui MD [facility] CPT-98094 Level 4 Est. Patient 10:08:37 CDT Vishal Hui MD [facility] CPT-10534 Level 3 Est. Patient 11:22:10 CDT Vishal Hui MD [facility] CPT-38348 Level 3 Est. Patient 11:03:32 CDT Sahara Rodriguez MD PhD [facility] CPT-11200 Level 3 Est. Patient 09:41:35 CDT Vishal Hui MD [facility] CPT-62941 Level 3 Est. Patient 12:00:41 CDT Neeraj Collins MD [facility] CPT-00275 Level 3 Est. Patient 09:16:24 CDT Vishal Hui MD [facility] CPT-51572 Level 4 Est. Patient 13:59:09 CDT Neeraj Collins MD [facility] CPT-29357 Level 3 Est. Patient 15:19:43 CDT Renzo W Norberot [facility] CPT-73761 Level 3 Est. Patient 18:10:26 CDT Sahara Rodriguez MD PhD [facility] CPT-66610 Level 3 Est. Patient 14:49:50 CDT Vishal Hui MD [facility] CPT-89636 Level 4 Est. Patient 18:41:46 CDT Neeraj Collins MD [facility] CPT-97327 Level 4 Est. Patient 09:18:38 DISPERSION MIXER Vishal Hui MD [facility] CPT-12198 Level 3 Est. Patient 14:43:55 DISPERSION MIXER Vishal Hui MD [facility] CPT-81395 Level 3 Est. Patient 15:26:33 DISPERSION MIXER Sahara Rodriguez MD PhD [facility] CPT-81373 Level 3 Est. Patient 10:32:14 DISPERSION MIXER Vishal Hui MD [facility] CPT-63400 Level 3 Est. Patient 15:12:52 DISPERSION MIXER Vishal Hui MD [facility] CPT-82644 Level 4 Est. Patient 09:19:27 CDT Vishal Hui MD [facility] CPT-66445 Level 3 Est. Patient 15:53:00 CDT Renzo Thornton [facility] CPT-03053 Level 3 Est. Patient 15:50:30 CDT Renzo Thornton [facility] CPT-81252 Level 3 Est. Patient 16:55:24 CDT Vishal Hui MD [facility] Procedures Code Procedure Name Date Entry Date Standard Description CPT-11095 Smoking Cessation counseling 11:15:58 DISPERSION MIXER CPT-G0439 [facility] Annual Wellness Exam 09:30:58 DISPERSION MIXER CPT-58386 TSH - LAB USE ONLY 08:50:26 DISPERSION MIXER CPT-36998 CBC - LAB USE ONLY 08:50:26 DISPERSION MIXER CPT-72342 Venipuncture Draw Fee 08:50:26 DISPERSION MIXER CPT-52765 Abx/Therapy Injection 17:34:30 DISPERSION MIXER CPT-53682 Nexplanon Removal with Reinsertion 14:09:32 CDT CPT-J7307 Nexplanon (Implant) 14:09:32 CDT CPT-OV Office Visit 14:09:32 CDT CPT-32770 UA w micro - LAB USE ONLY 16:21:13 CDT CPT-77445 [place] - LAB USE ONLY 16:21:13 CDT CPT-52002 First Vx - Ix admin for Medicare patients 14:37:47 CDT CPT-90802 Fluzone Preservative Free Intramuscular Suspension 14:37 :47 CDT CPT-68191 Abx/Therapy Injection 13:54:22 CDT CPT-52898 Abx/Therapy Injection 08:47:09 CDT CPT-10297 Abx/Therapy Injection 13:29:56 CDT CPT-16854 Abx/Therapy Injection 08:36:16 CDT CPT-51190 [place] - LAB USE ONLY 17:44:58 CDT CPT-94669 UA w micro - LAB USE ONLY 17:44:58 CDT CPT-20437 CMP - LAB USE ONLY 17:44:58 CDT CPT-34640 Venipuncture Draw Fee 17:44:58 CDT CPT-39542 Cervical Min 4V - XRAY USE ONLY 09:01:40 CDT CPT-07628 Chest 2V Frontal and Lat - XRAY USE ONLY 11:06:31 CDT CPT-44857 EKG Trac and Interp - XRAY USE ONLY 11:31:43 CDT 08/26 CPT-J3420 Vitamin B12 1000mcg (Cyanocobalamin) 08:10:26 DISPERSION MIXER 04/12 CPT-95771 Abx/Therapy Injection 08:10:26 DISPERSION MIXER CPT-G0438 Initial Annual Wellness Exam 19:01:01 DISPERSION MIXER CPT-J3420 Vitamin B12 1000mcg (Cyanocobalamin) 16:57:46 CDT 08/14 CPT-12117 Recombivax HB Injection Suspension 5 MCG/0.5ML 08:37:50 DISPERSION MIXER CPT-33224 Immunization Single Admin 08:37:50 DISPERSION MIXER CPT-J3420 Vitamin B12 1000mcg (Cyanocobalamin) 08:32:16 DISPERSION MIXER 03/11 CPT-37892 Abx/Therapy Injection 08:32:16 DISPERSION MIXER CPT-20866 Chest 2V Frontal and Lat 11:46:38 DISPERSION MIXER CPT-19858 Venipuncture Draw Fee 09:12:45 DISPERSION MIXER CPT-J3420 Vitamin B12 1000mcg (Cyanocobalamin) 08:50:15 DISPERSION MIXER 02/08 CPT-28184 Abx/Therapy Injection 08:50:15 DISPERSION MIXER CPT-Cryo Cryotherapy 10:19:35 DISPERSION MIXER CPT-000 Give Appropriate Flu Vaccine 09:22:16 CDT CPT-J3420 Vitamin B12 1000mcg (Cyanocobalamin) 19:08:57 CDT 01/11 CPT-38621 Abx/Therapy Injection 19:08:57 CDT CPT-J3420 Vitamin B12 1000mcg (Cyanocobalamin) 08:19:08 CDT 12/11 CPT-24253 Abx/Therapy Injection 08:19:08 CDT CPT-J3420 Vitamin B12 1000mcg (Cyanocobalamin) 14:48:00 CDT 11/09 CPT-17600 Abx/Therapy Injection 14:47:59 CDT CPT-J3420 Vitamin B12 1000mcg (Cyanocobalamin) 08:34:04 CDT 10/09 CPT-84907 Abx/Therapy Injection 08:34:04 CDT CPT-J3420 Vitamin B12 1000mcg (Cyanocobalamin) 09:18:52 CDT 09/11 CPT-78494 Abx/Therapy Injection 09:18:52 CDT CPT-J3420 Vitamin B12 1000mcg (Cyanocobalamin) 08:35:44 CDT 09/04 CPT-29278 Abx/Therapy Injection 08:35:44 CDT CPT-30297 Immunization Single Admin 11:07:16 CDT CPT-16868 Hepatitis B adult IM 11:07:16 CDT CPT-J3420 Vitamin B12 1000mcg (Cyanocobalamin) 11:00:49 CDT 08/28 CPT-J1040 Depo Medrol 80 mg (Methyl Prednisolone Acetate) 11:00: 49 CDT CPT-80993 Abx/Therapy Injection 11:00:49 CDT CPT-J1040 Depo Medrol 80 mg (Methyl Prednisolone Acetate) 09:16: 23 CDT CPT-J3420 Vitamin B12 1000mcg (Cyanocobalamin) 08:27:05 CDT 08/20 CPT-01416 Abx/Therapy Injection 08:27:05 CDT CPT-13432 Recombivax HB Injection Suspension 5 MCG/0.5ML 10:00:41 CDT CPT-59701 Administration single or combination vaccine inc oral 10 :00:41 CDT CPT-27383 Sono transvag pelvis non OB uterus ovaries cervix 16:36: 57 CDT CPT-15100 LS spine comp w obliq 09:50:55 DISPERSION MIXER CPT-43856 Abd compl w upright 09:50:55 DISPERSION MIXER CPT-J1100 Decadron 4mg (Dexamethasone) 15:51:24 DISPERSION MIXER CPT-J1030 Depo Medrol 40 mg (Methyl Prednisolone Acetate) 15:51: 24 DISPERSION MIXER CPT-20222 Abx/Therapy Injection 15:51:24 DISPERSION MIXER CPT-J1100 Decadron 4mg (Dexamethasone) 15:26:33 DISPERSION MIXER CPT-J1030 Depo Medrol 40 mg (Methyl Prednisolone Acetate) 15:26: 33 DISPERSION MIXER CPT-54135 Sono retroperitoneal complete kidneys and bladder 17:15: 30 CDT CPT-28887 Abd compl w upright 16:09:25 CDT CPT-J1100 Decadron 8mg (Dexamethasone) 17:07:57 CDT CPT-66776 Abx/Therapy Injection 17:07:57 CDT CPT-J1100 Decadron 8mg (Dexamethasone) 16:55:24 CDT CPT-13374 Chest 2V Frontal and Lat 16:32:44 CDT
--- OUTSIDE RECORDS SUMMARY | 2016-11-04 10:38 | XMS REPORT | Clinical Summary ---
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 Juliet Kimbrough [employer]FI[employer]MAN Dependence on other enabling machines and devices Gait unsteady 781.2 Resolved Albert Caldera MD Abnormality of gait Lipoma 214.9 Resolved Albert Caldera MD Lipoma, unspecified site Abdominal pain, RUQ 789.01 Resolved Albert Caldera MD Abdominal pain, right upper quadrant Chest pain, acute 786.50 Resolved Albert Caldera MD Unspecified chest pain Localized adiposity 278.1 Active Albert Caldera MD Localized adiposity Shortness of breath 786.05 Active Fabiola Johnson [employer] Shortness of breath Nocturnal hypoxia 799.02 Active Fabiola Johnson [employer] Hypoxemia Anxiety Disorder ICD-300.00 Inactive Vishal Hui MD Pneumonia, organism unspecified ICD-486 Inactive Vishal Hui MD Flank pain, right ICD-789.09 Inactive Vishal Hui MD G E R D ICD-530.81 Inactive Vishal Hui MD Smoker/tobacco use disorder-smoking cessation discussed ICD-305.1 Inactive Vishal Hui MD Abdominal pain ICD-789.00 Inactive Vishal Hui MD Cellulitis ICD-682.9 Inactive Vishal Hui MD Pelvic pain ICD-625.9 Inactive Vishal Hui MD Abscess, skin ICD-682.9 Inactive Vishal Hui MD Physical examination ICD-V70.0 Jim Hui MD Vaginitis ICD-616.10 Inactive Vishal Hui MD 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 Inactive Vishal Hui MD Fatigue ICD-780.79 Inactive Vishal Hui MD 2014 Vaginitis, candidal ICD-112.1 Inactive Vishal Hui MD Other abnormal blood chemistry ICD-790.6 [...] pain, acute ICD-786.50 Inactive Albert Caldera MD Medication List Medication Instructions Start Date Stop Date Generic Name [facility] Status Provider Patient Instruction FLUTICASONE PROPIONATE 50 MCG/ACT SUSP 2 sprays each nostril daily before bed. FLUTICASONE PROPIONATE 83409711168 Active Fabiola Johnson APRN Active VERAPAMIL HCL ER 120 MG ORAL CR-TABS 1 tab po daily for blood pressure 09/27 VERAPAMIL HCL 76104928272 Active Fabiola Johnson APRN Active ADZENYS XR-ODT 6.3 MG ORAL TBED 1 tab po daily for ADHD AMPHETAMINE 69133212028 Active Fabiola Johnson APRN Active BENADRYL 25 MG CAP 4 po at bedtime for insomnia DIPHENHYDRAMINE HCL 31027986016 Active Fabiola Johnson APRN Active KLONOPIN 1 MG ORAL TABS 1 tab po TID CLONAZEPAM 33763838544 Active Fabiola Johnson APRN Active VALIUM 5 MG TAB Take 1-2 tablets daily DIAZEPAM 09847388315 No Longer Active Fabiola Johnson APRN Active METOPROLOL TARTRATE 25 MG ORAL TABS 1/2 tablet twice daily for heart rate and blood pressure METOPROLOL TARTRATE 42370677582 No Longer Active Fabiola Johnson APRN Active MIRALAX ORAL POWD 17GMS DAILY IN WATER POLYETHYLENE GLYCOL 3350 23555222845 Active Vishal Hui MD Active VIIBRYD 10 MG ORAL TABS Take 1 tablet once a day VILAZODONE HCL 83443250067 Active Ahmet Carbajal MD Active DICLOFENAC POTASSIUM TABS Take 1 tablet twice a day (pt. is not sure of the dose.) DICLOFENAC POTASSIUM TABS 54376141410 Active Ahmet Carbajal MD Active MIRALAX PACK 1 po qd PRN Constipation POLYETHYLENE GLYCOL 3350 07624276035 No Longer Active Ahmet Carbajal MD Active MINIPRESS 2 MG CAPS 4 cap po at night PRAZOSIN HCL 03843598447 No Longer Active Ahemt Carbajal MD Active PIROXICAM 20 MG CAPS 1 cap po qd PRN Pain PIROXICAM 49422947322 No Longer Active Ahmet Carbajal MD Active TRAMADOL HCL 50 MG TABS 1-2 po TID PRN Pain TRAMADOL HCL 58917729173 No Longer Active Ahmet Carbajal MD Active METOPROLOL TARTRATE 50 MG TAB 1 po bid METOPROLOL TARTRATE 12975380934 No Longer Active Ahmet Carbajal MD Active ABILIFY 15 MG ORAL TABS 1 tab daily ARIPIPRAZOLE 13764741353 No Longer Active Ahmet Carbajal MD Active PROZAC 20 MG ORAL CAPS 1 tab daily FLUOXETINE HCL 81105172816 No Longer Active Ahmet Carbajal MD Active AMBIEN 5 MG ORAL TABS 1 tab at bedtime ZOLPIDEM TARTRATE 14695368979 No Longer Active Ahmet Carbajal MD Active PREDNISONE 20 MG TAB 2 tabs daily for 4 days, 1 tab daily for 4 days, 1/2 tab daily for 4 days PREDNISONE 63230032899 No Longer Active Ahmet Carbajal MD Active KEFLEX 500 MG CAP 1 po TID x 10 days CEPHALEXIN 24122198515 No Longer Active Vishal Hui MD Active ABILIFY MAINTENA 400 MG IM SUSR Injection once per month ARIPIPRAZOLE 13536207598 Active Juliet Kimbrough APRN Active IMITREX 50 MG ORAL TABS 1/2 tab every 6 hours prn SUMATRIPTAN SUCCINATE 66228211709 Active 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 APRN Active TOPAMAX 50 MG ORAL TABS 1 tab twice daily TOPIRAMATE 87490851027 Active Vishal Hui MD Active SAPHRIS 5 MG SUBL 1 po bid ASENAPINE MALEATE 42666303188 No Longer Active 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 APRN Active LATUDA 80 MG TABS Take one by mouth daily LURASIDONE HCL 46796236714 No Longer Active 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 APRN Active AMLODIPINE BESYLATE 5 MG TABS 1 tablet by mouth daily AMLODIPINE BESYLATE 81374690315 No Longer Active 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 APRN Active AMITRIPTYLINE HCL 100 MG TAB one at hs AMITRIPTYLINE HCL 27631450030 No Longer Active Vishal Hui MD Active TRAZODONE HCL 100 MG TAB take 1 at bedtime TRAZODONE HCL 51805620535 No Longer Active Vishal Hui MD Active VYVANSE 40 MG CAPS 1 daily, LISDEXAMFETAMINE DIMESYLATE 26090376698 No Longer Active Vishal Hui MD Active IBUPROFEN 600 MG TAB 1 po TID PRN IBUPROFEN 26501940354 No Longer Active Vishal Hui MD Active PROZAC 20 MG CAP Take one by mouth daily FLUOXETINE HCL 98615465703 No Longer Active Vishal Hui MD Active ZOFRAN 4 MG TABS 1 po q6hr PRN Nausea ONDANSETRON HCL Active Vishal Hui MD Active BACTRIM DS 800-160 MG TABS 1 pill by mouth twice daily SULFAMETHOXAZOLE-TRIMETHOPRIM 87832876799 No Longer Active Sahara Rodriguez MD PhD Active DIFLUCAN 150 MG TAB 1 tablet by mouth daily FLUCONAZOLE 00654664589 No Longer Active Vishal Hui MD Active TIZANIDINE HCL 4 MG TABS 1 po q6hr PRN Muscle Spasm/Back Pain TIZANIDINE HCL 25740725543 Active 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 APRN Active CLINDAMYCIN HCL 150 MG CAPS 1 four times a day CLINDAMYCIN HCL 29119386893 No Longer Active Neeraj Collins MD Active KEFLEX 500 MG ORAL CAPS 1 cap QID by mouth CEPHALEXIN 90541957997 No Longer Active Neeraj Collins MD Active DIFLUCAN 150 MG TABS 1 pill every other day x 2 doses FLUCONAZOLE 55693302931 No Longer Active Sahara Rodriguez MD PhD Active MELATONIN 3 MG CAPS 2 po q hs MELATONIN 50184183102 No Longer Active Sahara Rodriguez MD PhD Active MULTIVITAMINS CAPS Take one by mouth daily MULTIPLE VITAMIN 69311411809 No Longer Active Sahara Rodriguez MD PhD Active BACTRIM DS 800-160 MG TAB 1 tab by mouth twice daily TRIMETHOPRIM-SULFAMETHOXAZOLE 50926169096 No Longer Active Sahara Rodriguez MD PhD Active [facility] PROBIOTIC ORAL CHEW 2 daily po PROBIOTIC PRODUCT 75981451578 No Longer Active Sahara Rodriguez MD PhD Active BACTRIM DS 800-160 MG TABS 1 po BID x 7 days SULFAMETHOXAZOLE-TRIMETHOPRIM 61455142011 No Longer Active Vishal Hui MD Active CHANTIX STARTING MONTH EARNEST 0.5 MG X 11 & 1 MG X 42 TABS 0.5mg daily for 3 days , then 0.5mg BID for 4 days, then 1mg BID VARENICLINE TARTRATE 35828516260 No Longer Active TAMARA Gray Active VERAPAMIL HCL CR 120 MG TAB CR 1 po bid VERAPAMIL HCL 00576151910 No Longer Active Vishal Hui MD Active METOPROLOL SUCCINATE 50 MG TB24 1 tablet by mouth daily METOPROLOL SUCCINATE 38397899623 No Longer Active Vishal Hui MD Active SAPHRIS 10 MG SUBL 1 tab po bid ASENAPINE MALEATE 11317813481 No Longer Active Vishal Hui MD Active LISINOPRIL 20 MG TABS 1 tab po qd LISINOPRIL 70602882115 No Longer Active Vishal Hui MD Active LATUDA 20 MG TABS Take one by mouth daily LURASIDONE HCL 46814151300 No Longer Active Vishal Hui MD Active TRAZODONE HCL 50 MG TABS 1/2 tab po qd prn for anxiety TRAZODONE HCL 51517282977 No Longer Active Vishal Hui MD Active OMEPRAZOLE 20 MG TBEC 1 po q a.m. 30min prior to first food intake OMEPRAZOLE 17335466782 Active Vishal Hui MD Active RANITIDINE HCL 150 MG CAPS 1 twice a day RANITIDINE HCL 89154392920 Active 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 APRN Active LINZESS 290 MCG CAPS Take one by mouth daily LINACLOTIDE 27822073361 No Longer Active Vishal Hui MD Active SAPHRIS 5 MG SUBL 1 tab po qd ASENAPINE MALEATE 82423971964 No Longer Active Vishal Hui MD Active ZALEPLON 10 MG CAPS 1 cap po every other night ZALEPLON 57116666904 No Longer Active Vishal Hui MD Active LYRICA 50 MG CAPS 1 tab po TID PREGABALIN 22586427567 No Longer Active Vishal Hui MD Active LORATADINE 10 MG TABS 1 tab po qd LORATADINE 04985726747 No Longer Active Vishal Hui MD Active VERAPAMIL HCL ER 180 MG CR-TABS 1 tab po bid VERAPAMIL HCL 39569709591 No Longer Active Vishal Hui MD Active MIRALAX POWD 1 capfull once daily POLYETHYLENE GLYCOL 3350 05435831394 No Longer Active Vishal Hui MD Active PREDNISONE 20 MG TABS 1 tab po qd PREDNISONE 75620788612 No Longer Active Renzo Thornton DO Active LEVOFLOXACIN 500 MG TABS 1 tab po qd LEVOFLOXACIN 71961250788 No Longer Active Renzo Thornton DO Active BUSPIRONE HCL 15 MG TABS 1 tab po TID BUSPIRONE HCL 82037029615 No Longer Active Renzo Thornton DO Active BENZTROPINE MESYLATE 1 MG TABS 1 tab po qd BENZTROPINE MESYLATE 00529578732 No Longer Active Renzo Thornton DO Active ATENOLOL 25 MG TABS 1 tab po qd ATENOLOL 95560427128 No Longer Active Renzo Thornton DO Active ESCITALOPRAM OXALATE 20 MG TABS 1 tab po qd ESCITALOPRAM OXALATE 99471667505 No Longer Active Renzo Thornton DO Active ADVAIR DISKUS 250-50 MCG/DOSE AEPB 1 puff BID FLUTICASONE-SALMETEROL 32557099968 No Longer Active Renzo Thornton DO Active PREDNISONE 20 MG TAB 2 tabs daily for 3 days, 1 tab daily for 3 days, 1/2 tab daily for 2 days PREDNISONE 51196979384 No Longer Active Vishal Hui MD Active CEFDINIR 300 MG CAPS by mouth twice a day CEFDINIR 88106162608 No Longer Active Vishal Hui MD Active LANSOPRAZOLE 30 MG CPDR 1 cap po qd LANSOPRAZOLE 24111766178 No Longer Active Vishal Hui MD Active BACLOFEN 20 MG TABS 1 tab po tid BACLOFEN 91918242902 No Longer Active Vishal Hui MD Active ADVAIR DISKUS 250-50 MCG/DOSE AEPB 1 puff BID ADVAIR DISKUS 250-50 MCG/DOSE AEPB FLUTICASONE-SALMETEROL Inactive ESCITALOPRAM OXALATE 20 MG TABS 1 tab po qd ESCITALOPRAM OXALATE 20 MG TABS 923875 ESCITALOPRAM OXALATE Inactive ATENOLOL 25 MG TABS 1 tab po qd ATENOLOL 25 MG TABS 215341 ATENOLOL Inactive BENZTROPINE MESYLATE 1 MG TABS 1 tab po qd BENZTROPINE MESYLATE 1 MG TABS 161675 BENZTROPINE MESYLATE Inactive BUSPIRONE HCL 15 MG TABS 1 tab po TID BUSPIRONE HCL 15 MG TABS 241441 BUSPIRONE HCL Inactive LEVOFLOXACIN 500 MG TABS 1 tab po qd LEVOFLOXACIN 500 MG TABS 598949 LEVOFLOXACIN Inactive PREDNISONE 20 MG TABS 1 tab po qd PREDNISONE 20 MG TABS 555882 PREDNISONE Inactive MIRALAX POWD 1 capfull once daily MIRALAX POWD 199732 POLYETHYLENE GLYCOL 3350 Inactive VERAPAMIL HCL ER 180 MG CR-TABS 1 tab po bid VERAPAMIL HCL ER 180 MG CR-TABS VERAPAMIL HCL Inactive LORATADINE 10 MG TABS 1 tab po qd LORATADINE 10 MG TABS 370621 LORATADINE Inactive LYRICA 50 MG CAPS 1 tab po TID LYRICA 50 MG CAPS PREGABALIN Inactive ZALEPLON 10 MG CAPS 1 cap po every other night ZALEPLON 10 MG CAPS 423505 ZALEPLON Inactive SAPHRIS 5 MG SUBL 1 tab po qd SAPHRIS 5 MG SUBL ASENAPINE MALEATE Inactive TRAZODONE HCL 50 MG TABS 1/2 tab po qd prn for anxiety TRAZODONE HCL 50 MG TABS 108400 TRAZODONE HCL Inactive LATUDA 20 MG TABS Take one by mouth daily LATUDA 20 MG TABS LURASIDONE HCL Inactive LISINOPRIL 20 MG TABS 1 tab po qd LISINOPRIL 20 MG TABS 561214 LISINOPRIL Inactive SAPHRIS 10 MG SUBL 1 [...] twice daily BACTRIM DS 800-160 MG TAB 102122 TRIMETHOPRIM-SULFAMETHOXAZOLE Inactive MULTIVITAMINS CAPS Take one by mouth daily MULTIVITAMINS CAPS MULTIPLE VITAMIN Inactive MELATONIN 3 MG CAPS 2 po q hs MELATONIN 3 MG CAPS 594662 MELATONIN Inactive KEFLEX 500 MG ORAL CAPS 1 cap QID by mouth KEFLEX 500 MG ORAL CAPS 580155 CEPHALEXIN Inactive CLINDAMYCIN HCL 150 MG CAPS 1 four times a day CLINDAMYCIN HCL 150 MG CAPS 668655 CLINDAMYCIN HCL Inactive DIFLUCAN 150 MG TAB 1 tablet by mouth daily DIFLUCAN 150 MG TAB 813186 FLUCONAZOLE Inactive PROZAC 20 MG CAP Take one by mouth daily PROZAC 20 MG CAP 345111 FLUOXETINE HCL Inactive IBUPROFEN 600 MG TAB 1 po TID PRN IBUPROFEN 600 MG TAB 634317 IBUPROFEN Inactive VYVANSE 40 MG CAPS 1 daily, VYVANSE 40 MG CAPS LISDEXAMFETAMINE DIMESYLATE Inactive TRAZODONE HCL 100 MG TAB take 1 at bedtime TRAZODONE HCL 100 MG TAB 200842 TRAZODONE HCL Inactive AMITRIPTYLINE HCL 100 MG TAB one at hs AMITRIPTYLINE HCL 100 MG TAB 873716 AMITRIPTYLINE HCL Inactive AMLODIPINE BESYLATE 5 MG TABS 1 tablet by mouth daily AMLODIPINE BESYLATE 5 MG TABS 427474 AMLODIPINE BESYLATE Inactive LATUDA 80 MG TABS Take one by mouth daily LATUDA 80 MG TABS LURASIDONE HCL Inactive SAPHRIS 5 MG SUBL 1 po bid SAPHRIS 5 MG SUBL ASENAPINE MALEATE Inactive PREDNISONE 20 MG TAB 2 tabs daily for 4 days, 1 tab daily for 4 days, 1/2 tab daily for 4 days PREDNISONE 20 MG TAB 613463 PREDNISONE Inactive AMBIEN 5 MG ORAL TABS 1 tab at bedtime AMBIEN 5 MG ORAL TABS 915646 ZOLPIDEM TARTRATE Inactive PROZAC 20 MG ORAL CAPS 1 tab daily PROZAC 20 MG ORAL CAPS 403153 FLUOXETINE HCL Inactive ABILIFY 15 MG ORAL TABS 1 tab daily ABILIFY 15 MG ORAL TABS 602162 ARIPIPRAZOLE Inactive METOPROLOL TARTRATE 50 MG TAB 1 po bid METOPROLOL TARTRATE 50 MG TAB 984651 METOPROLOL TARTRATE Inactive TRAMADOL HCL 50 MG TABS 1-2 po TID PRN Pain TRAMADOL HCL 50 MG TABS 807080 TRAMADOL HCL Inactive PIROXICAM 20 MG CAPS 1 cap po qd PRN Pain PIROXICAM 20 MG CAPS 050954 PIROXICAM Inactive MINIPRESS 2 MG CAPS 4 cap po at night MINIPRESS 2 MG CAPS 329033 PRAZOSIN HCL Inactive MIRALAX PACK 1 po qd PRN Constipation MIRALAX PACK 972137 POLYETHYLENE GLYCOL 3350 Inactive METOPROLOL TARTRATE 25 MG ORAL TABS 1/2 tablet twice daily for heart rate and blood pressure METOPROLOL TARTRATE 25 MG ORAL TABS 143238 METOPROLOL TARTRATE Inactive VALIUM 5 MG TAB Take 1-2 tablets daily VALIUM 5 MG TAB 764034 DIAZEPAM Inactive CEFDINIR 300 MG CAPS by mouth twice a day CEFDINIR 300 MG CAPS 773737 CEFDINIR Inactive PREDNISONE 20 MG TAB 2 tabs daily for 3 days, 1 tab daily for 3 days, 1/2 tab daily for 2 days PREDNISONE 20 MG TAB 514405 PREDNISONE Inactive BACTRIM DS 800-160 MG TABS 1 po BID x 7 days BACTRIM DS 800-160 MG TABS 684897 SULFAMETHOXAZOLE-TRIMETHOPRIM Inactive DIFLUCAN 150 MG TABS 1 pill every other day x 2 doses DIFLUCAN 150 MG TABS 604259 FLUCONAZOLE Inactive BACTRIM DS 800-160 MG TABS 1 pill by mouth twice daily BACTRIM DS 800-160 MG TABS 624442 SULFAMETHOXAZOLE-TRIMETHOPRIM Inactive KEFLEX 500 MG CAP 1 po TID x 10 days KEFLEX 500 MG CAP 265380 CEPHALEXIN Inactive Advance Directives Directive Description Start Date DISCUSSED WITH PATIENT -- NO DECISION MADE Vital Signs Date Name Value Unit Range Description blood pressure, diastolic - 8462-4 79 mm[Hg] [...] E&M - 3141-9 282.4 [lb_av] Weight Measured blood pressure, diastolic - 8462-4 82 mm[Hg] BP mcnally blood pressure, systolic - 8480-6 123 mm[Hg] BP sys height E&M - 8302-2 65 [in_us] Bdy height pulse rate E&M - 8867-4 78 /min Heart rate temperature E&M 97.4 [degF] Body temperature weight E&M - 3141-9 290 [lb_av] Weight Measured blood pressure, diastolic - 8462-4 70 mm[Hg] BP mcnally blood pressure, systolic - 8480-6 118 mm[Hg] BP sys pulse rate E&M - 8867-4 54 /min Heart rate temperature E&M 97.2 [degF] Body temperature weight E&M - 3141-9 290.5 [lb_av] Weight Measured blood pressure, diastolic - 8462-4 97 mm[Hg] BP mcnally blood pressure, systolic - 8480-6 131 mm[Hg] BP sys pulse rate E&M - 8867-4 70 /min Heart rate temperature E&M 95.1 [degF] Body temperature weight E&M - 3141-9 291 [lb_av] Weight Measured blood pressure, diastolic - 8462-4 73 mm[Hg] BP mcnally blood pressure, systolic - 8480-6 115 mm[Hg] BP sys pulse rate E&M - 8867-4 88 /min Heart rate temperature E&M 97.1 [degF] Body temperature weight E&M - 3141-9 287.9 [lb_av] Weight Measured blood pressure, diastolic - 8462-4 83 mm[Hg] BP mcnally blood pressure, systolic - 8480-6 125 mm[Hg] BP sys pulse rate E&M - 8867-4 96 /min Heart rate temperature E&M 95.5 [degF] Body temperature weight E&M - 3141-9 288.5 [lb_av] Weight Measured blood pressure, diastolic - 8462-4 76 mm[Hg] BP mcnally blood pressure, systolic - 8480-6 111 mm[Hg] BP sys pulse rate E&M - 8867-4 78 /min Heart rate temperature E&M 96.2 [degF] Body temperature weight E&M - 3141-9 286.5 [lb_av] Weight Measured blood pressure, diastolic - 8462-4 75 mm[Hg] BP mcnally blood pressure, systolic - 8480-6 126 mm[Hg] BP sys pulse rate E&M - 8867-4 77 /min Heart rate temperature E&M 96.7 [degF] Body temperature weight E&M - 3141-9 287.5 [lb_av] Weight Measured blood pressure, diastolic - 8462-4 75 mm[Hg] BP mcnally blood pressure, systolic - 8480-6 116 mm[Hg] BP sys height E&M - 8302-2 65 [in_us] Bdy height pulse rate E&M - 8867-4 78 /min Heart rate temperature E&M 97.7 [degF] Body temperature weight E&M - 3141-9 284.5 [lb_av] Weight Measured blood pressure, diastolic - 8462-4 79 mm[Hg] BP mcnally blood pressure, systolic - 8480-6 116 mm[Hg] BP sys pulse rate E&M - 8867-4 84 /min Heart rate temperature E&M 98.5 [degF] Body temperature weight E&M - 3141-9 281 [lb_av] Weight Measured blood pressure, diastolic - 8462-4 75 mm[Hg] BP mcnally blood pressure, systolic - 8480-6 114 mm[Hg] BP sys pulse rate E&M - 8867-4 66 /min Heart rate temperature E&M 97.4 [degF] Body temperature weight E&M - 3141-9 277 [lb_av] Weight Measured blood pressure, diastolic - 8462-4 70 mm[Hg] BP mcnally blood pressure, systolic - 8480-6 120 mm[Hg] BP sys pulse rate E&M - 8867-4 74 /min Heart rate temperature E&M 97.5 [degF] Body temperature weight E&M - 3141-9 275.4 [lb_av] Weight Measured blood pressure, diastolic - 8462-4 83 mm[Hg] BP mcnally blood pressure, systolic - 8480-6 127 mm[Hg] BP sys pulse rate E&M - 8867-4 86 /min Heart rate temperature E&M 98.2 [degF] Body temperature weight E&M - 3141-9 274.5 [lb_av] Weight Measured Diagnostic Results Date Name Value Unit Range Description Lab Report: CBC - Hematology leukocyte count, blood 10.5 10^3/MM^3 10*3/mm3 4.6-10.2 erythrocyte (RBC) count 4.19 10^6/MM^3 10*6/mm3 4.04-5.48 hemoglobin, blood 13.1 g/dL 12.0-16.0 hematocrit, blood 39.0 % 36.0-46.0 mean corpuscular volume, RBC 93 fL 80-97 mean corpuscular hemoglobin, RBC 31.4 pg 27.0-31.2 mean corpuscular hemoglobin concentration, RBC 33.7 G/DL % 31.8- 35.4 red blood cell distribution width 13.4 % 11.6-14.8 platelet count 394 10^3/MM^3 10*3/mm3 277-528 9556/01/11 leukocyte count, blood 13.8 10^3/MM^3 10*3/mm3 4.6-10.2 erythrocyte (RBC) count 4.46 10^6/MM^3 10*6/mm3 4.04-5.48 hemoglobin, blood 14.0 g/dL 12.0-16.0 hematocrit, blood 41.8 % 36.0-46.0 mean corpuscular volume, RBC 94 fL 80-97 mean corpuscular hemoglobin, RBC 31.5 pg 27.0-31.2 mean corpuscular hemoglobin concentration, RBC 33.6 G/DL % 31.8- 35.4 red blood cell distribution width 14.4 % 11.6-14.8 platelet count 390 10^3/MM^3 10*3/mm3 142-424 Lab Report: CBC W/DIFF - Hematology leukocyte count, blood 11.4 10^3/MM^3 10*3/mm3 4.6-10.2 neutrophils as percent of blood leukocytes 58.9 % 42.2-75.2 monocytes as percent of blood leukocytes 8.1 % 1.7-9.3 lymphocytes as percent of blood leukocytes 29.2 % 20.5-51.1 erythrocyte (RBC) count 4.26 10^6/MM^3 10*6/mm3 4.04-5.48 hemoglobin, blood 13.6 g/dL 12.0-16.0 hematocrit, blood 39.6 % 36.0-46.0 mean corpuscular volume, RBC 93 fL 80-97 mean corpuscular hemoglobin, RBC 32.0 pg 27.0-31.2 mean corpuscular hemoglobin concentration, RBC 34.3 G/DL % 31.8- 35.4 red blood cell distribution width 13.2 % 11.6-14.8 platelet count 379 10^3/MM^3 10*3/mm3 142-424 Lab Report: CBC W/DIFF, Comp. Metabolic Panel, HGBA1C, Lipid Panel - Chemistry sodium, serum 139 mmol/L 323-337 8763/12/03 carbon dioxide, venous blood 28.5 mmol/L 21.0-32.0 potassium, serum 4.8 mmol/L 3.5-5.2 chloride, serum 104 mmol/L 98-107 blood glucose 97 mg/dL 65-110 urea nitrogen, blood 17 mg/dL 7-18 creatinine, serum 0.90 mg/dL 0.55-1.30 alanine aminotransferase (SGPT), serum 31 U/L 12-78 aspartate aminotransferase (SGOT), serum 12 U/L 15-37 calcium, serum 8.8 mg/dL 8.5-10.1 bilirubin, serum, total 0.20 mg/dL 0.00-1.00 hemoglobin A1C, blood, as % of total hemoglobin 5.5 % 4.3-6.0 cholesterol, serum 159 mg/dL 519-816 0181/12/03 triglyceride, serum, fasting 118 mg/dL 30-200 HDL cholesterol, serum 45 mg/dL 32-96 LDL cholesterol, serum 90 mg/dL 0-130 Lab Report: CBC W/DIFF, Comp. Metabolic Panel, HGBA1C, Lipid Panel - Hematology leukocyte count, blood 12.5 10^3/MM^3 10*3/mm3 4.6-10.2 neutrophils as percent of blood leukocytes 62.7 % 42.2-75.2 monocytes as percent of blood leukocytes 8.0 % 1.7-9.3 lymphocytes as percent of blood leukocytes 26.7 % 20.5-51.1 erythrocyte (RBC) count 4.38 10^6/MM^3 10*6/mm3 4.04-5.48 hemoglobin, blood 13.8 g/dL 12.0-16.0 hematocrit, blood 40.8 % 36.0-46.0 mean corpuscular volume, RBC 93 fL 80-97 mean corpuscular hemoglobin, RBC 31.6 pg 27.0-31.2 mean corpuscular hemoglobin concentration, RBC 34.0 G/DL % 31.8- 35.4 red blood cell distribution width 12.8 % 11.6-14.8 platelet count 362 10^3/MM^3 10*3/mm3 142-424 Lab Report: Comp. Metabolic Panel - Chemistry sodium, serum 139 mmol/L 875-037 7250/12/22 carbon dioxide, venous blood 26.8 mmol/L 21.0-32.0 potassium, serum 4.2 mmol/L 3.5-5.2 chloride, serum 103 mmol/L 98-107 blood glucose 115 mg/dL 65-110 urea nitrogen, blood 20 mg/dL 7-18 creatinine, serum 0.90 mg/dL 0.55-1.30 alanine aminotransferase (SGPT), serum 38 U/L - aspartate aminotransferase (SGOT), serum 19 U/L 15-37 calcium, serum 8.6 mg/dL 8.5-10.1 bilirubin, serum, total 0.30 mg/dL 0.00-1.00 sodium, serum 139 mmol/L 275-179 1086/01/11 carbon dioxide, venous blood 26.6 mmol/L 21.0-32.0 potassium, serum 4.1 mmol/L 3.5-5.2 chloride, serum 100 mmol/L 98-107 blood glucose 86 mg/dL 65-110 urea nitrogen, blood 16 mg/dL 7-18 creatinine, serum 1.00 mg/dL 0.55-1.30 alanine aminotransferase (SGPT), serum 48 U/L -78 aspartate aminotransferase (SGOT), serum 17 U/L 15-37 calcium, serum 9.1 mg/dL 8.5-10.1 bilirubin, serum, total 0.40 mg/dL 0.00-1.00 sodium, serum 142 mmol/L 578-562 2020/06/08 carbon dioxide, venous blood 27.6 mmol/L 21.0-32.0 potassium, serum 4.0 mmol/L 3.5-5.2 chloride, serum 105 mmol/L 98-107 blood glucose 95 mg/dL 65-110 urea nitrogen, blood 8 mg/dL 7-18 creatinine, serum 0.75 mg/dL 0.55-1.30 alanine aminotransferase (SGPT), serum 49 U/L -78 aspartate aminotransferase (SGOT), serum 28 U/L 15-37 calcium, serum 9.4 mg/dL 8.5-10.1 bilirubin, serum, total 0.30 mg/dL 0.00-1.00 Lab Report: Comp. Metabolic Panel, Erythrocyte Sed Rate - Chemistry sodium, serum 139 mmol/L 697-002 0756/12/11 creatinine, serum 0.96 mg/dL 0.55-1.30 alanine aminotransferase (SGPT), serum 34 U/L 78 aspartate aminotransferase (SGOT), serum 12 U/L 15-37 calcium, serum 8.6 mg/dL 8.5-10.1 bilirubin, serum, total 0.20 mg/dL 0.00-1.00 carbon dioxide, venous blood 25.4 mmol/L 21.0-32.0 potassium, serum 3.9 mmol/L 3.5-5.2 chloride, serum 105 mmol/L 98-107 blood glucose 98 mg/dL 65-110 urea nitrogen, blood 18 mg/dL 7-18 Lab Report: HGBA1C - Chemistry hemoglobin A1C, blood, as % of total hemoglobin 5.3 % 4.3-6.0 Lab Report: LH/Adult/615, FSH/Adult/470 - Chemistry follicle stimulating hormone, serum 5.8 m[iU]/mL luteinizing hormone, serum 2.7 m[iU]/mL Lab Report: [place] UADIP W/MICRO, AUTO - Chemistry protein, total urine random Negative mg/dL Negative RBC, urine, dipstick Negative Negative Lab Report: MonoSpot, UADIP W/MICRO, AUTO - Urinalysis urobilinogen, urine, semiquantitative (dipstick) 0.2 Normal leukocyte esterase, urine, by dipstick Negative Negative nitrite, urine, semiquantitative Negative Negative appearance, urine SlCloudy Clear specific gravity, urine 1.020 1.000-1.030 pH, urine, semiquantitative 6.0 5.0-8.5 glucose, urine, semiquantitative Negative Negative urine color Yellow Colorless;Lightyellow;Straw;Yellow ketones, urine, by test strip Negative Negative bilirubin, urine Negative Negative Lab Report: Thyroid Stimulating Hormone (L), Free Thyroxine (L) - Chemistry TSH 1.48 m[iU]/mL 0.36-3.74 thyroxine, serum, free 0.98 ng/dL 0.76-1.46 thyroxine, serum, free 1.02 ng/dL 0.76-1.46 TSH 2.35 m[iU]/mL 0.36-3.74 Lab Report: UADIP W/MICRO, AUTO - Chemistry RBC, urine, dipstick Negative Negative protein, total urine random Negative mg/dL Negative RBC, urine, dipstick Negative Negative protein, total urine random Negative mg/dL Negative RBC, urine, dipstick Negative Negative protein, total urine random Negative mg/dL Negative RBC, urine, dipstick Negative Negative protein, total urine random Negative mg/dL Negative Lab Report: UADIP W/MICRO, AUTO - Urinalysis glucose, urine, semiquantitative Negative Negative ketones, urine, by test strip Negative Negative bilirubin, urine Negative Negative urobilinogen, urine, semiquantitative (dipstick) 0.2 Normal leukocyte esterase, urine, by dipstick Negative Negative nitrite, urine, semiquantitative Negative Negative urine color Yellow Colorless;Lightyellow;Straw;Yellow appearance, urine Clear Clear specific gravity, urine 1.025 1.000-1.030 pH, urine, semiquantitative 5.5 5.0-8.5 urobilinogen, urine, semiquantitative (dipstick) 0.2 Normal leukocyte esterase, urine, by dipstick Negative Negative nitrite, urine, semiquantitative Negative Negative glucose, urine, semiquantitative Negative Negative ketones, urine, by test strip Negative Negative bilirubin, urine Negative Negative urobilinogen, urine, semiquantitative (dipstick) 0.2 Normal leukocyte esterase, urine, by dipstick Negative Negative nitrite, urine, semiquantitative Negative Negative urine color Yellow Colorless;Lightyellow;Straw;Yellow appearance, urine SlCloudy Clear specific gravity, urine >=1.030 1.000-1.030 pH, urine, semiquantitative 5.5 5.0-8.5 glucose, [...] gravity, urine 1.025 1.000-1.030 pH, urine, semiquantitative 5.5 5.0-8.5 Office Visit: Consult for Painful Lipoma - Chemistry cholesterol, target level 200 mg/dL triglyceride, target level 200 mg/dL HDL cholesterol, serum, target level 35 mg/dL LDL target level 100 mg/dL Encounters Code Encounter Date Provider Facility CPT-85655 Level 4 Est. Patient 12:11:48 CDT Fabiola Johnson APRN [facility] CPT-57926 Level 3 New Patient 16:53:37 CDT Albret Caldera MD [facility] CPT-04043 Level 3 Est. Patient 11:25:49 CDT Renzo Thornton DO [facility] CPT-78387 Level 3 Est. Patient 15:22:01 CDT Ahmet Carbajal MD [facility] CPT-81714 Level 4 Est. Patient 09:00:51 UNIFORM ROOM ATTENDANT Vishal Hui MD [facility] CPT-62462 Level 3 Est. Patient 11:37:33 UNIFORM ROOM ATTENDANT Vishal Hui MD [facility] CPT-78163 Level 3 Est. Patient 08:41:09 UNIFORM ROOM ATTENDANT Vishal Hui MD [facility] CPT-12170 Level 4 Est. Patient 10:19:35 UNIFORM ROOM ATTENDANT Vishal Hui MD [facility] CPT-84846 Level 3 Est. Patient 13:35:45 CDT Vishal Hui MD [facility] CPT-20607 Level 4 Est. Patient 10:08:37 CDT Vishal Hui MD [facility] [place]-[address] Level 3 Est. Patient 11:22:10 CDT Vishal Hui MD [facility] CPT-04776 Level 3 Est. Patient 11:03:32 CDT Sahara Rodriguez MD [facility]-44494 Level 3 Est. Patient 09:41:35 CDT Vishal Hui MD [facility] CPT-43683 Level 3 Est. Patient 12:00:41 CDT Neeraj Collins MD [facility] CPT-44103 Level 3 Est. Patient 09:16:24 CDT Vishal Hui MD [facility] [place]-[address] Level 4 Est. Patient 13:59:09 CDT Neeraj Collins MD [facility] [place]-[address]129 Level 3 Est. Patient 15:19:43 CDT Renzo Thornton DO [facility] CPT-60905 Level 3 Est. Patient 18:10:26 CDT Sahara Rodriguez MD [facility] CPT-75335 Level 3 Est. Patient 14:49:50 CDT Vishal Hui MD [facility] [place]-[address]97 Level 4 Est. Patient 18:41:46 CDT Neeraj Collins MD [facility] [place]-58444 Level 4 Est. Patient 09:18:38 UNIFORM ROOM ATTENDANT Vishal Hui MD [facility]-55883 Level 3 Est. Patient 14:43:55 UNIFORM ROOM ATTENDANT Vishal Hui MD [facility] CPT-06730 Level 3 Est. Patient 15:26:33 UNIFORM ROOM ATTENDANT Sahara Rodriguez MD [facility] [place]-[address] Level 3 Est. Patient 10:32:14 UNIFORM ROOM ATTENDANT Vishal Hui MD [facility] [place]-[address]363 Level 3 Est. Patient 15:12:52 UNIFORM ROOM ATTENDANT Vishal Hui MD [facility] CPT-14716 Level 4 Est. Patient 09:19:27 CDT Vishal Hui MD [facility] CPT-30169 Level 3 Est. Patient 15:53:00 CDT Renzo Thornton [facility] CPT-49332 Level 3 Est. Patient 15:50:30 CDT Renzo Thornton [facility] CPT-11538 Level 3 Est. Patient 16:55:24 CDT Vishal Hui MD [facility] Procedures Code Procedure Name Date Entry Date Standard Description CPT-68127 Chest 2V Frontal and Lat - XRAY USE ONLY 11:06:31 CDT CPT-79392 EKG Trac and Interp - XRAY USE ONLY 11:31:43 CDT 08/26 CPT-J3420 Vitamin B12 1000mcg (Cyanocobalamin) 08:10:26 UNIFORM ROOM ATTENDANT 04/12 CPT-91304 Abx/Therapy Injection 08:10:26 UNIFORM ROOM ATTENDANT CPT-G0438 Initial Annual Wellness Exam 19:01:01 UNIFORM ROOM ATTENDANT CPT-J3420 Vitamin B12 1000mcg (Cyanocobalamin) 16:57:46 CDT 08/14 CPT-04124 Recombivax HB Injection Suspension 5 MCG/0.5ML 08:37:50 UNIFORM ROOM ATTENDANT CPT-76858 Immunization Single Admin 08:37:50 UNIFORM ROOM ATTENDANT CPT-J3420 Vitamin B12 1000mcg (Cyanocobalamin) 08:32:16 UNIFORM ROOM ATTENDANT 03/11 CPT-67471 Abx/Therapy Injection 08:32:16 UNIFORM ROOM ATTENDANT CPT-28615 Chest 2V Frontal and Lat 11:46:38 UNIFORM ROOM ATTENDANT CPT-49931 Venipuncture Draw Fee 09:12:45 UNIFORM ROOM ATTENDANT CPT-J3420 Vitamin B12 1000mcg (Cyanocobalamin) 08:50:15 UNIFORM ROOM ATTENDANT 02/08 CPT-20352 Abx/Therapy Injection 08:50:15 UNIFORM ROOM ATTENDANT CPT-Cryo Cryotherapy 10:19:35 UNIFORM ROOM ATTENDANT CPT-000 Give Appropriate Flu Vaccine 09:22:16 CDT CPT-J3420 Vitamin B12 1000mcg (Cyanocobalamin) 19:08:57 CDT 01/11 CPT-51156 Abx/Therapy Injection 19:08:57 CDT CPT-J3420 Vitamin B12 1000mcg (Cyanocobalamin) 08:19:08 CDT 12/11 CPT-70200 Abx/Therapy Injection 08:19:08 CDT CPT-J3420 Vitamin B12 1000mcg (Cyanocobalamin) 14:48:00 CDT 11/09 CPT-92347 Abx/Therapy Injection 14:47:59 CDT CPT-J3420 Vitamin B12 1000mcg (Cyanocobalamin) 08:34:04 CDT 10/09 CPT-27527 Abx/Therapy Injection 08:34:04 CDT CPT-J3420 Vitamin B12 1000mcg (Cyanocobalamin) 09:18:52 CDT 09/11 CPT-50209 Abx/Therapy Injection 09:18:52 CDT CPT-J3420 Vitamin B12 1000mcg (Cyanocobalamin) 08:35:44 CDT 09/04 CPT-54666 Abx/Therapy Injection 08:35:44 CDT CPT-34772 Immunization Single Admin 11:07:16 CDT CPT-35334 Hepatitis B adult IM 11:07:16 CDT CPT-J3420 Vitamin B12 1000mcg (Cyanocobalamin) 11:00:49 CDT 08/28 CPT-J1040 Depo Medrol 80 mg (Methyl Prednisolone Acetate) 11:00: 49 CDT CPT-13055 Abx/Therapy Injection 11:00:49 CDT CPT-J1040 Depo Medrol 80 mg (Methyl Prednisolone Acetate) 09:16: 23 CDT CPT-J3420 Vitamin B12 1000mcg (Cyanocobalamin) 08:27:05 CDT 08/20 CPT-40428 Abx/Therapy Injection 08:27:05 CDT CPT-45718 Recombivax HB Injection Suspension 5 MCG/0.5ML 10:00:41 CDT CPT-01436 Administration single or combination vaccine inc oral 10 :00:41 CDT CPT-90318 Sono transvag pelvis non OB uterus ovaries cervix 16:36: 57 CDT CPT-76297 LS spine comp w obliq 09:50:55 UNIFORM ROOM ATTENDANT CPT-00767 Abd compl w upright 09:50:55 UNIFORM ROOM ATTENDANT CPT-J1100 Decadron 4mg (Dexamethasone) 15:51:24 UNIFORM ROOM ATTENDANT CPT-J1030 Depo Medrol 40 mg (Methyl Prednisolone Acetate) 15:51: 24 UNIFORM ROOM ATTENDANT CPT-60483 Abx/Therapy Injection 15:51:24 UNIFORM ROOM ATTENDANT CPT-J1100 Decadron 4mg (Dexamethasone) 15:26:33 UNIFORM ROOM ATTENDANT CPT-J1030 Depo Medrol 40 mg (Methyl Prednisolone Acetate) 15:26: 33 UNIFORM ROOM ATTENDANT CPT-20448 Sono retroperitoneal complete kidneys and bladder 17:15: 30 CDT CPT-90492 Abd compl w upright 16:09:25 CDT CPT-J1100 Decadron 8mg (Dexamethasone) 17:07:57 CDT CPT-02579 Abx/Therapy Injection 17:07:57 CDT CPT-J1100 Decadron 8mg (Dexamethasone) 16:55:24 CDT CPT-74157 Chest 2V Frontal and Lat 16:32:44 CDT
--- OUTSIDE RECORDS SUMMARY | 2016-11-04 10:39 | XMS REPORT | Clinical Summary ---
Author Author Admin, QIE Organization [facility] Address Unknown Phone Unavailable Allergies, Adverse Reactions, Alerts Allergy Name Reaction Description Start Date Severity Status Provider FANAPT heart palpitations Critical Active Vishal Hui MD SEROQUEL Critical Active Vishal Hui MD AUGMENTIN Critical Active Vishal Hui MD AMOXICILLIN Critical Active Vishal Hui MD Conditions or Problems Problem Name Problem Code Onset Date Status Entry Date Provider Comment Standard Description Annotate Asthma 493.90 Active Vishal Hui MD Asthma, unspecified Anxiety Disorder 300.00 Active Vishal Hui MD Anxiety state, unspecified Depression 311 Active Vishal Hui MD Depressive disorder, not elsewhere classified Hypertension 401.9 Active Vishal Hui MD Unspecified essential hypertension Pneumonia, organism unspecified 486 Resolved Vishal Hui MD Pneumonia, organism unspecified Flank pain, right 789.09 Resolved Vishal Hui MD Abdominal pain, other specified site; multiple sites G E R D 530.81 Active Vishal Hui MD Esophageal reflux Health screening [...] (pediatric) Smoker/tobacco use disorder-smoking cessation discussed 305.1 Active Vishal Hui MD Tobacco use disorder Abdominal pain 789.00 Resolved Vishal Hui MD Abdominal pain, unspecified site Cellulitis 682.9 Resolved Vishal Hui MD Cellulitis and abscess of unspecified sites Pelvic pain 625.9 Resolved Vishal Hui MD Unspecified symptom associated with female genital organs Abscess, skin 682.9 Resolved Vishal Hui MD Cellulitis and abscess of unspecified sites Physical examination V70.0 Active Vishal Hui MD Routine general [...] Other abnormal blood chemistry Boils, recurrent 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.9 Active Sahara Rodriguez MD PhD Carbuncle and furuncle of unspecified site Pneumonia, organism unspecified ICD-486 Inactive Vishal Hui MD Flank pain, right ICD-789.09 Inactive Vishal Hui MD Abdominal pain ICD-789.00 Inactive Vishal Hui MD Cellulitis ICD-682.9 Inactive Vishal Hui MD Pelvic pain ICD-625.9 Inactive Vishal Hui MD Abscess, skin ICD-682.9 Inactive Vishal Hui MD Vaginitis ICD-616.10 Inactive Vishal Hui MD 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 Inactive Vishal Hui MD Fatigue ICD-780.79 Inactive Vishal Hui MD 2014 Vaginitis, candidal ICD-112.1 Inactive Vishal Hui MD Other abnormal blood chemistry ICD-790.6 Inactive Vishal Hui MD Medication List Medication Instructions Start Date Stop Date Generic Name NDC Status Provider Patient Instruction BACTRIM DS 800-160 MG TABS 1 pill by mouth twice daily SULFAMETHOXAZOLE-TRIMETHOPRIM 77119394615 Active Sahara Rodriguez MD PhD Active DIFLUCAN 150 MG TAB 1 tablet by mouth daily FLUCONAZOLE 15415255498 No Longer Active Vishal Hui MD Active TIZANIDINE HCL 4 MG TABS 1 po q6hr PRN Muscle Spasm/Back Pain TIZANIDINE HCL 00130408416 Active Vishal Hui MD Active CLINDAMYCIN HCL 150 MG CAPS 1 four times a day CLINDAMYCIN HCL 23879418194 No Longer Active Neeraj Collins MD Active KEFLEX 500 MG ORAL CAPS 1 cap QID by mouth CEPHALEXIN 83668869567 No Longer Active Neeraj Collins MD Active DIFLUCAN 150 MG TABS 1 pill every other day x 2 doses FLUCONAZOLE 06281602995 No Longer Active Sahara Rodriguez MD PhD Active MELATONIN 3 MG CAPS 2 po q hs MELATONIN 38327994214 No Longer Active Sahara Rodriguez MD PhD Active MULTIVITAMINS CAPS Take one by mouth daily MULTIPLE VITAMIN 25176089146 No Longer Active Sahara Rodriguez MD PhD Active BACTRIM DS 800-160 MG TAB 1 tab by mouth twice daily TRIMETHOPRIM-SULFAMETHOXAZOLE 91396545702 No Longer Active Sahara Rodriguez MD PhD Active [facility] PROBIOTIC ORAL CHEW 2 daily po PROBIOTIC PRODUCT 36991761297 No Longer Active Sahara Rodriguez MD PhD Active IBUPROFEN 600 MG TAB 1 po TID PRN IBUPROFEN 60853158202 Active 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 BACTRIM DS 800-160 MG TABS 1 po BID x 7 days SULFAMETHOXAZOLE-TRIMETHOPRIM 83054766423 No Longer Active Vishal Hui MD Active CHANTIX STARTING MONTH EARNEST 0.5 MG X 11 & 1 MG X 42 TABS 0.5mg daily for 3 days , then 0.5mg BID for 4 days, then 1mg BID VARENICLINE TARTRATE 20409072169 No Longer Active TAMARA Gray Active METOPROLOL TARTRATE 50 MG TAB 1 po bid METOPROLOL TARTRATE 95887647880 Active Vishal Hui MD Active TRAZODONE HCL 100 MG TAB take 1 at bedtime TRAZODONE HCL 65308083054 Active Vishal Hui MD Active AMLODIPINE BESYLATE 5 MG TABS 1 tablet by mouth daily AMLODIPINE BESYLATE 53993455001 Active Vishal Hui MD Active VERAPAMIL HCL CR 120 MG TAB CR 1 po bid VERAPAMIL HCL 18928615309 No Longer Active Vishal Hui MD Active METOPROLOL SUCCINATE 50 MG TB24 1 tablet by mouth daily METOPROLOL SUCCINATE 08215501373 No Longer Active Vishal Hui MD Active TRAMADOL HCL 50 MG TABS 1-2 po TID PRN Pain TRAMADOL HCL 61869152674 Active Vishal Hui MD Active SAPHRIS 5 MG SUBL 1 po bid ASENAPINE MALEATE 77009286923 Active Vishal Hui MD Active SAPHRIS 10 MG SUBL 1 tab po bid ASENAPINE MALEATE 93080290716 No Longer Active Vishal Hui MD Active LISINOPRIL 20 MG TABS 1 tab po qd LISINOPRIL 96967983627 No Longer Active Vishal Hui MD Active BENADRYL 25 MG CAP 2 po tid prn anxiety DIPHENHYDRAMINE HCL 63431901592 Active Vishal Hui MD Active LATUDA 80 MG TABS Take one by mouth daily LURASIDONE HCL 58116173147 Active Vishal Hui MD Active LATUDA 20 MG TABS Take one by mouth daily LURASIDONE HCL 39099706368 No Longer Active Vishal Hui MD Active TRAZODONE HCL 50 MG TABS 1/2 tab po qd prn for anxiety TRAZODONE HCL 33018183092 No Longer Active Vishal Hui MD Active PIROXICAM 20 MG CAPS 1 cap po qd PRN Pain PIROXICAM 03588378182 Active Vishal Hui MD Active OMEPRAZOLE 20 MG TBEC 1 po q a.m. 30min prior to first food intake OMEPRAZOLE 51940939997 Active Vishal Hui MD Active RANITIDINE HCL 150 MG CAPS 1 twice a day RANITIDINE HCL 75314326323 Active Vishal Hui MD Active PROZAC 20 MG CAP Take one by mouth daily FLUOXETINE HCL 37223870005 Active Vishal Hui MD Active LINZESS 290 MCG CAPS Take one by mouth daily LINACLOTIDE 95076772335 Active Vishal Hui MD Active SAPHRIS 5 MG SUBL 1 tab po qd ASENAPINE MALEATE 00446248232 No Longer Active Vishal Hui MD Active ZALEPLON 10 MG CAPS 1 cap po every other night ZALEPLON 18799006105 No Longer Active Vishal Hui MD Active LYRICA 50 MG CAPS 1 tab po TID PREGABALIN 58999778771 No Longer Active Vishal Hui MD Active LORATADINE 10 MG TABS 1 tab po qd LORATADINE 82455822123 No Longer Active Vishal Hui MD Active VERAPAMIL HCL ER 180 MG CR-TABS 1 tab po bid VERAPAMIL HCL 01491274958 No Longer Active Vishal Hui MD Active MIRALAX POWD 1 capfull once daily POLYETHYLENE GLYCOL 3350 84721300621 No Longer Active Vishal Hui MD Active PREDNISONE 20 MG TABS 1 tab po qd PREDNISONE 03989066234 No Longer Active Renzo Thornton DO Active LEVOFLOXACIN 500 MG TABS 1 tab po qd LEVOFLOXACIN 49280745772 No Longer Active Renzo Thornton DO Active BUSPIRONE HCL 15 MG TABS 1 tab po TID BUSPIRONE HCL 29672225921 No Longer Active Renzo Thornton DO Active BENZTROPINE MESYLATE 1 MG TABS 1 tab po qd BENZTROPINE MESYLATE 79334603766 No Longer Active Renzo Thornton DO Active ATENOLOL 25 MG TABS 1 tab po qd ATENOLOL 35491228911 No Longer Active Renzo Thornton DO Active ESCITALOPRAM OXALATE 20 MG TABS 1 tab po qd ESCITALOPRAM OXALATE 22027940555 No Longer Active Renzo Thornton DO Active ADVAIR DISKUS 250-50 MCG/DOSE AEPB 1 puff BID FLUTICASONE-SALMETEROL 24362231940 No Longer Active Renzo Thornton DO Active PREDNISONE 20 MG TAB 2 tabs daily for 3 days, 1 tab daily for 3 days, 1/2 tab daily for 2 days PREDNISONE 75285820199 No Longer Active Vishal Hui MD Active CEFDINIR 300 MG CAPS by mouth twice a day CEFDINIR 89312376386 No Longer Active Vishal Hui MD Active LANSOPRAZOLE 30 MG CPDR 1 cap po qd LANSOPRAZOLE 11686185762 No Longer Active Vishal Hui MD Active TOPAMAX 25 MG TABS 1 tab po bid TOPIRAMATE 97219312862 Active Vishal Hui MD Active MINIPRESS 2 MG CAPS 1 cap po at night PRAZOSIN HCL 99901058742 Active Vishal Hui MD Active BACLOFEN 20 MG TABS 1 tab po tid BACLOFEN 98008244513 No Longer Active Vishal Hui MD Active ADVAIR DISKUS 250-50 MCG/DOSE AEPB 1 puff BID ADVAIR DISKUS 250-50 MCG/DOSE AEPB FLUTICASONE-SALMETEROL Inactive ESCITALOPRAM OXALATE 20 MG TABS 1 tab po qd ESCITALOPRAM OXALATE 20 MG TABS 040392 ESCITALOPRAM OXALATE Inactive ATENOLOL 25 MG TABS 1 tab po qd ATENOLOL 25 MG TABS 900269 ATENOLOL Inactive BENZTROPINE MESYLATE 1 MG TABS 1 tab po qd BENZTROPINE MESYLATE 1 MG TABS 471726 BENZTROPINE MESYLATE Inactive BUSPIRONE HCL 15 MG TABS 1 tab po TID BUSPIRONE HCL 15 MG TABS 873759 BUSPIRONE HCL Inactive LEVOFLOXACIN 500 MG TABS 1 tab po qd LEVOFLOXACIN 500 MG TABS 947853 LEVOFLOXACIN Inactive PREDNISONE 20 MG TABS 1 tab po qd PREDNISONE 20 MG TABS 614927 PREDNISONE Inactive MIRALAX POWD 1 capfull once daily MIRALAX POWD 015734 POLYETHYLENE GLYCOL 3350 Inactive VERAPAMIL HCL ER 180 MG CR-TABS 1 tab po bid VERAPAMIL HCL ER 180 MG CR-TABS VERAPAMIL HCL Inactive LORATADINE 10 MG TABS 1 tab po qd LORATADINE 10 MG TABS 686091 LORATADINE Inactive LYRICA 50 MG CAPS 1 tab po TID LYRICA 50 MG CAPS PREGABALIN Inactive ZALEPLON 10 MG CAPS 1 cap po every other night ZALEPLON 10 MG CAPS 382147 ZALEPLON Inactive SAPHRIS 5 MG SUBL 1 tab po qd SAPHRIS 5 MG SUBL ASENAPINE MALEATE Inactive TRAZODONE HCL 50 MG TABS 1/2 tab po qd prn for anxiety TRAZODONE HCL 50 MG TABS 147045 TRAZODONE HCL Inactive LATUDA 20 MG TABS Take one by mouth daily LATUDA 20 MG TABS LURASIDONE HCL Inactive LISINOPRIL 20 MG TABS 1 tab po qd LISINOPRIL 20 MG TABS 529891 LISINOPRIL Inactive SAPHRIS 10 MG SUBL 1 [...] twice daily BACTRIM DS 800-160 MG TAB TRIMETHOPRIM-SULFAMETHOXAZOLE Inactive MULTIVITAMINS CAPS Take one by mouth daily MULTIVITAMINS CAPS MULTIPLE VITAMIN Inactive MELATONIN 3 MG CAPS 2 po q hs MELATONIN 3 MG CAPS 929599 MELATONIN Inactive KEFLEX 500 MG ORAL CAPS 1 cap QID by mouth KEFLEX 500 MG ORAL CAPS 771942 CEPHALEXIN Inactive CLINDAMYCIN HCL 150 MG CAPS 1 four times a day CLINDAMYCIN HCL 150 MG CAPS 283620 CLINDAMYCIN HCL Inactive DIFLUCAN 150 MG TAB 1 tablet by mouth daily DIFLUCAN 150 MG TAB 960038 FLUCONAZOLE Inactive CEFDINIR 300 MG CAPS by mouth twice a day CEFDINIR 300 MG CAPS 097246 CEFDINIR Inactive PREDNISONE 20 MG TAB 2 tabs daily for 3 days, 1 tab daily for 3 days, 1/2 tab daily for 2 days PREDNISONE 20 MG TAB 529003 PREDNISONE Inactive BACTRIM DS 800-160 MG TABS 1 po BID x 7 days BACTRIM DS 800-160 MG TABS SULFAMETHOXAZOLE-TRIMETHOPRIM Inactive DIFLUCAN 150 MG TABS 1 pill every other day x 2 doses DIFLUCAN 150 MG TABS 036847 FLUCONAZOLE Inactive Vital Signs Date Name Value Unit Range Description blood pressure, diastolic - 8462-4 70 mm[Hg] [...] E&M - 3141-9 274.5 [lb_av] Weight Measured blood pressure, diastolic - 8462-4 80 mm[Hg] BP mcnally blood pressure, systolic - 8480-6 122 mm[Hg] BP sys pulse rate E&M - 8867-4 83 /min Heart rate temperature E&M 98.5 [degF] Body temperature weight E&M - 3141-9 275 [lb_av] Weight Measured blood pressure, diastolic - 8462-4 76 mm[Hg] BP mcnalyl blood pressure, systolic - 8480-6 141 mm[Hg] BP sys pulse rate E&M - 8867-4 69 /min Heart rate temperature E&M 96.9 [degF] Body temperature weight E&M - 3141-9 279 [lb_av] Weight Measured blood pressure, diastolic - 8462-4 71 mm[Hg] BP mcnally blood pressure, systolic - 8480-6 107 mm[Hg] BP sys pulse rate E&M - 8867-4 65 /min Heart rate temperature E&M 97.7 [degF] Body temperature weight E&M - 3141-9 280 [lb_av] Weight Measured blood pressure, diastolic - 8462-4 86 mm[Hg] BP mcnally blood pressure, systolic - 8480-6 122 mm[Hg] BP sys pulse rate E&M - 8867-4 67 /min Heart rate temperature E&M 96.8 [degF] Body temperature weight E&M - 3141-9 275.2 [lb_av] Weight Measured blood pressure, diastolic - 8462-4 63 mm[Hg] BP mcnally blood pressure, systolic - 8480-6 98 mm[Hg] BP sys pulse rate E&M - 8867-4 73 /min Heart rate temperature E&M 97.8 [degF] Body temperature weight E&M - 3141-9 275.12 [lb_av] Weight Measured blood pressure, diastolic - 8462-4 79 mm[Hg] BP mcnally blood pressure, systolic - 8480-6 117 mm[Hg] BP sys pulse rate E&M - 8867-4 57 /min Heart rate temperature E&M 97.9 [degF] Body temperature weight E&M - 3141-9 270 [lb_av] Weight Measured blood pressure, diastolic - 8462-4 78 mm[Hg] BP mcnally blood pressure, systolic - 8480-6 111 mm[Hg] BP sys pulse rate E&M - 8867-4 69 /min Heart rate temperature E&M 97.9 [degF] Body temperature weight E&M - 3141-9 269 [lb_av] Weight Measured blood pressure, diastolic - 8462-4 75 mm[Hg] BP mcnally blood pressure, systolic - 8480-6 112 mm[Hg] BP sys pulse rate E&M - 8867-4 69 /min Heart rate temperature E&M 97.9 [degF] Body temperature weight E&M - 3141-9 268.2 [lb_av] Weight Measured blood pressure, diastolic - 8462-4 74 mm[Hg] BP mcnally blood pressure, systolic - 8480-6 107 mm[Hg] BP sys pulse rate E&M - 8867-4 132 /min Heart rate temperature E&M 97.3 [degF] Body temperature weight E&M - 3141-9 269 [lb_av] Weight Measured blood pressure, diastolic - 8462-4 74 mm[Hg] BP mcnally blood pressure, systolic - 8480-6 111 mm[Hg] BP sys pulse rate E&M - 8867-4 72 /min Heart rate temperature E&M 96.9 [degF] Body temperature weight E&M - 3141-9 267 [lb_av] Weight Measured blood pressure, diastolic - 8462-4 78 mm[Hg] BP mcnally blood pressure, systolic - 8480-6 115 mm[Hg] BP sys pulse rate E&M - 8867-4 53 /min Heart rate temperature E&M 96.0 [degF] Body temperature weight E&M - 3141-9 267 [lb_av] Weight Measured blood pressure, diastolic - 8462-4 84 mm[Hg] BP mcnally blood pressure, systolic - 8480-6 131 mm[Hg] BP sys pulse rate E&M - 8867-4 84 /min Heart rate temperature E&M 97.1 [degF] Body temperature weight E&M - 3141-9 271 [lb_av] Weight Measured blood pressure, diastolic - 8462-4 72 mm[Hg] BP mcnally blood pressure, systolic - 8480-6 115 mm[Hg] BP sys pulse rate E&M - 8867-4 77 /min Heart rate temperature E&M 96.9 [degF] Body temperature weight E&M - 3141-9 276.3 [lb_av] Weight Measured blood pressure, diastolic - 8462-4 72 mm[Hg] BP mcnally blood pressure, systolic - 8480-6 102 mm[Hg] BP sys pulse rate E&M - 8867-4 101 /min Heart rate temperature E&M 97.7 [degF] Body temperature weight E&M - 3141-9 275.3 [lb_av] Weight Measured blood pressure, diastolic - 8462-4 79 mm[Hg] BP mcnally blood pressure, systolic - 8480-6 123 mm[Hg] BP sys pulse rate E&M - 8867-4 96 /min Heart rate temperature E&M 99.1 [degF] Body temperature weight E&M - 3141-9 275.4 [lb_av] Weight Measured blood pressure, diastolic - 8462-4 82 mm[Hg] BP mcnally blood pressure, systolic - 8480-6 132 mm[Hg] BP sys pulse rate E&M - 8867-4 92 /min Heart rate temperature E&M 96.5 [degF] Body temperature weight E&M - 3141-9 281 [lb_av] Weight Measured Diagnostic Results Date Name Value Unit Range Description Chart Maintenance: outside labs entered on flowsheet - Chemistry sodium, serum 139 mmol/L potassium, serum 4.0 mmol/L blood glucose 86 mg/dL creatinine, serum 0.89 mg/dL aspartate aminotransferase (SGOT), serum 18 U/L alanine aminotransferase (SGPT), serum 38 U/L alkaline phosphatase, serum 119 U/L Chart Maintenance: outside labs entered on [employer] - Hematology leukocyte count, blood 8.9 10*3/mm3 hemoglobin, blood 13.2 g/dL platelet count 364 10*3/mm3 Lab Report: CBC, Comp. Metabolic Panel, Free Thyroxine (L), Thyroid Stim ... - Chemistry sodium, serum 140 mmol/L 172-901 9614/05/28 potassium, serum 4.2 mmol/L 3.5-5.2 chloride, serum 104 mmol/L 98-107 carbon dioxide, venous blood 28.3 mmol/L 21.0-32.0 blood glucose 101 mg/dL 65-110 urea nitrogen, blood 19 mg/dL 7-18 creatinine, serum 1.10 mg/dL 0.60-1.30 alanine aminotransferase (SGPT), serum 31 U/L 12-78 aspartate aminotransferase (SGOT), serum 18 U/L 15-37 calcium, serum 8.2 mg/dL 8.5-10.1 bilirubin, serum, total 0.20 mg/dL 0.00-1.00 thyroxine, serum, free 0.92 ng/dL 0.76-1.46 TSH 1.20 m[iU]/mL 0.36-3.74 Lab Report: CBC, Comp. Metabolic Panel, Free Thyroxine (L), Thyroid Stim ... - Hematology leukocyte count, blood 8.8 10^3/MM^3 10*3/mm3 4.6-10.2 erythrocyte (RBC) count 4.12 10^6/MM^3 10*6/mm3 4.04-5.48 hemoglobin, blood 12.9 g/dL 12.0-16.0 hematocrit, blood 38.5 % 36.0-46.0 mean corpuscular volume, RBC 93 fL 80-97 mean corpuscular hemoglobin, RBC 31.4 pg 27.0-31.2 mean corpuscular hemoglobin concentration, RBC 33.6 G/DL % 31.8- 35.4 red blood cell distribution width 13.1 % 11.6-14.8 platelet count 348 10^3/MM^3 10*3/mm3 142-424 Lab Report: Comp. Metabolic Panel - Chemistry chloride, serum 106 mmol/L 98-107 carbon dioxide, venous blood 25.7 mmol/L 21.0-32.0 blood glucose 119 mg/dL 65-110 urea nitrogen, blood 22 mg/dL 7-18 sodium, serum 141 mmol/L 591-976 6048 creatinine, serum 0.90 mg/dL 0.60-1.30 alanine aminotransferase (SGPT), serum 28 U/L 12-78 aspartate aminotransferase (SGOT), serum 13 U/L 15-37 calcium, serum 8.5 mg/dL 8.5-10.1 bilirubin, serum, total 0.20 mg/dL 0.00-1.00 potassium, serum 4.3 mmol/L 3.5-5.2 Lab Report: Comp. Metabolic Panel, Lipid Panel - Chemistry sodium, serum 139 mmol/L 992-869 9877/12/31 potassium, serum 4.8 mmol/L 3.5-5.2 chloride, serum 106 mmol/L 98-107 carbon dioxide, venous blood 24.3 mmol/L 21.0-32.0 blood glucose 90 mg/dL 65-110 urea nitrogen, blood 16 mg/dL 7-18 creatinine, serum 1.00 mg/dL 0.60-1.30 alanine aminotransferase (SGPT), serum 41 U/L 12-78 aspartate aminotransferase (SGOT), serum 17 U/L 15-37 calcium, serum 8.6 mg/dL 8.5-10.1 bilirubin, serum, total 0.30 mg/dL 0.00-1.00 cholesterol, serum 108 mg/dL 808-046 0786/12/31 triglyceride, serum, fasting 120 mg/dL 30-200 HDL cholesterol, serum 28 mg/dL 32-96 LDL cholesterol, serum 56 mg/dL 0-130 Lab Report: HGBA1C - Chemistry hemoglobin A1C, blood, as % of total hemoglobin 5.3 % 4.3-6.0 Lab Report: MICROALBUMIN - Chemistry albumin/creatinine ratio, urine < 30 mg/g mg/g{creat} 0-29 Lab Report: MICROALBUMIN - Lab microalbumin, urine 10 0-19 Lab Report: UADIP W/MICRO, AUTO, UHCG - Chemistry RBC, urine, dipstick Negative Negative human chorionic gonadotropin, urine, qualitative (urine test) Negative Negative protein, total urine random Negative mg/dL Negative Lab Report: UADIP W/MICRO, AUTO, UHCG - Urinalysis pH, urine, semiquantitative 7.0 5.0-8.5 specific gravity, urine 1.025 1.000-1.030 appearance, urine Clear Clear urine color Yellow Colorless;Lightyellow;Straw;Yellow urobilinogen, urine, semiquantitative (dipstick) 0.2 Normal leukocyte esterase, urine, by dipstick Negative Negative nitrite, urine, semiquantitative Negative Negative glucose, urine, semiquantitative Negative Negative ketones, urine, by test strip Negative Negative bilirubin, urine Negative Negative Lab Report: Varicella-Zoater Inga IgG,IgM/52657, HEP Be Antibody/556, RUB ... - Serology rubella antibody, serum, IgG 2.88 Encounters Code Encounter Date Provider Facility CPT-60442 Level 3 Est. Patient 11:03:32 CDT Sahara Rodriguez MD PhD [facility] CPT-19639 Level 3 Est. Patient 09:41:35 CDT Vishal Hui MD [facility] CPT-93638 Level 3 Est. Patient 12:00:41 CDT Neeraj Collins MD [facility] CPT-02665 Level 3 Est. Patient 09:16:24 CDT Vishal Hui MD [facility] CPT-49786 Level 4 Est. Patient 13:59:09 CDT Neeraj Collins MD [facility] CPT-52826 Level 3 Est. Patient 15:19:43 CDT Renzo Thornton DO [facility] CPT-60246 Level 3 Est. Patient 18:10:26 CDT Sahara Rodriguez MD PhD [facility] CPT-70740 Level 3 Est. Patient 14:49:50 CDT Vishal Hui MD [facility] CPT-34848 Level 4 Est. Patient 18:41:46 CDT Neeraj Collins MD [facility] CPT-65745 Level 4 Est. Patient 09:18:38 [employer] Vishal Hui MD [facility] CPT-20870 Level 3 Est. Patient 14:43:55 [employer] Vishal Hui MD [facility] CPT-15784 Level 3 Est. Patient 15:26:33 [employer] Sahara Rodriguez MD, PhD [facility] CPT-67669 Level 3 Est. Patient 10:32:14 [employer] Vishal Hui MD [facility] CPT-89719 Level 3 Est. Patient 15:12:52 [employer] Vishal Hui MD [facility] CPT-87514 Level 4 Est. Patient 09:19:27 CDT Vishal Hui MD [facility] CPT-23694 Level 3 Est. Patient 15:53:00 CDT Renzo Thornton [facility] CPT-17997 Level 3 Est. Patient 15:50:30 CDT Renzo Thornton [facility] CPT-27842 Level 3 Est. Patient 16:55:24 CDT Vishal Hui MD [facility] Procedures Code Procedure Name Date Entry Date Standard Description CPT-J3420 Vitamin B12 1000mcg (Cyanocobalamin) 08:34:04 CDT 10/09 CPT-15191 Abx/Therapy Injection 08:34:04 CDT CPT-J3420 Vitamin B12 1000mcg (Cyanocobalamin) 09:18:52 CDT 09/11 CPT-19475 Abx/Therapy Injection 09:18:52 CDT CPT-J3420 Vitamin B12 1000mcg (Cyanocobalamin) 08:35:44 CDT 09/04 CPT-77707 Abx/Therapy Injection 08:35:44 CDT CPT-42845 Immunization Single Admin 11:07:16 CDT CPT-22675 Hepatitis B adult IM 11:07:16 CDT CPT-J3420 Vitamin B12 1000mcg (Cyanocobalamin) 11:00:49 CDT 08/28 CPT-J1040 Depo Medrol 80 mg (Methyl Prednisolone Acetate) 11:00: 49 CDT CPT-60245 Abx/Therapy Injection 11:00:49 CDT CPT-J1040 Depo Medrol 80 mg (Methyl Prednisolone Acetate) 09:16: 23 CDT CPT-J3420 Vitamin B12 1000mcg (Cyanocobalamin) 08:27:05 CDT 08/20 CPT-99837 Abx/Therapy Injection 08:27:05 CDT CPT-33365 Recombivax HB Injection Suspension 5 MCG/0.5ML 10:00:41 CDT CPT-30433 Administration single or combination vaccine inc oral 10 :00:41 CDT CPT-48058 Sono transvag pelvis non OB uterus ovaries cervix 16:36: 57 CDT CPT-80705 LS spine comp w obliq 09:50:55 [employer] CPT-32664 Abd compl w upright 09:50:55 [employer] CPT-J1100 Decadron 4mg (Dexamethasone) 15:51:24 [employer] CPT-J1030 Depo Medrol 40 mg (Methyl Prednisolone Acetate) 15:51: 24 [employer] CPT-30585 Abx/Therapy Injection 15:51:24 [employer]IPE [employer] CPT-J1100 Decadron 4mg (Dexamethasone) 15:26:33 [employer] CPT-J1030 Depo Medrol 40 mg (Methyl Prednisolone Acetate) 15:26: 33 [employer] CPT-55045 Sono retroperitoneal complete kidneys and bladder 17:15: 30 CDT CPT-19544 Abd compl w upright 16:09:25 CDT CPT-J1100 Decadron 8mg (Dexamethasone) 17:07:57 CDT CPT-28015 Abx/Therapy Injection 17:07:57 CDT CPT-J1100 Decadron 8mg (Dexamethasone) 16:55:24 CDT CPT-69637 Chest 2V Frontal and Lat 16:32:44 CDT
--- OUTSIDE RECORDS SUMMARY | 2016-11-04 10:41 | XMS REPORT | Clinical Summary ---
Author Author Admin, Dereck Organization [facility] [employer] Address Unknown Phone Unavailable Allergies, Adverse Reactions, Alerts Allergy Name Reaction Description Start Date Severity Status Provider REQUIP Unsure of reaction, states that she was in severe pain Critical Active Ahmet Carbajal MD AMITRIPTYLINE HCL Mood changes. LDA MA Critical Active Vishal Hui MD FANAPT heart palpitations Critical Active Vishal Hui MD SEROQUEL Critical Active Vishal Hui MD AUGMENTIN Critical Active iVshal Hui MD AMOXICILLIN Critical Active Vishal Hui [...] cardiac dysrhythmias Schizoaffective disorder 295.70 Active Vishal Hiu MD Schizoaffective disorder, unspecified Irritable bowel syndrome [...] involving multiple sites Morbid obesity 278.01 Active Julite Kimbrough SANFORIZER Morbid obesity 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 Active Juliet Kimbrough SANFORIZER Dependence on other enabling machines and devices [...] Shortness of breath 786.05 Active Fabiola Johnson SANFORIZER Shortness of breath Nocturnal hypoxia 799.02 Active Fabiola Johnson SANFORIZER Hypoxemia Neck pain 723.1 Active 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 SANFORIZER Cervicalgia Vaginal discharge 623.5 Active Neeraj Collins MD Leukorrhea, not specified as infective Abdominal pain, right lower quadrant 789.03 Active Neeraj Collins MD Abdominal pain, right lower quadrant Calf pain, left 729.5 Active Vishal Hui MD Pain in limb Anxiety Disorder ICD-300.00 Inactive Vishal Hui MD [...] Inactive Vishal Hui MD Abscess, skin ICD-682.9 iJm Hui MD Physical examination ICD-V70.0 Jim Hui MD Vaginitis ICD-616.10 Inactive Vishal Hui MD 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 Jim Hui [...] Leukocytosis ICD-288.60 Jim Hui MD UTI ICD-599.0 Jim Hui MD Headache, atypical ICD-784.0 Jim Caldera MD Elevated blood glucose ICD-790.29 Jim Hui MD Gait unsteady ICD-781.2 Inactive Albert Caldera MD Lipoma ICD-214.9 Inactive Albert Caldera MD Abdominal pain, RUQ ICD-789.01 Inactive Albert Caldera MD Chest pain, acute ICD-786.50 Inactive Albert Caldera MD Medication List Medication Instructions Start Date Stop Date Generic Name NDC Status Provider Patient Instruction DICLOFENAC SODIUM 50 MG TBEC 1 tablet by mouth four times daily PRN Pain 2015 DICLOFENAC SODIUM 22630288523 Active Vishal Hui MD Active DICLOFENAC POTASSIUM TABS Take 1 tablet twice a day (pt. is not sure of the dose.) DICLOFENAC POTASSIUM TABS 10514372489 No Longer Active Vishal Hui MD Active VERAPAMIL HCL ER 120 MG ORAL CR-TABS Take 1 tablet by mouth twice a day. VERAPAMIL HCL 75315772921 Active Vishal Hui MD Active FLAGYL 500 MG TAB 1 tablet by mouth bid METRONIDAZOLE 70457645249 No Longer Active Vishal Hui MD Active ABILIFY MAINTENA 400 MG IM SUSR 400mg injection every 28 days ARIPIPRAZOLE 06565226102 Active Silvia Casey LPN Active FLUTICASONE PROPIONATE 50 MCG/ACT SUSP 2 sprays each nostril daily before bed. FLUTICASONE PROPIONATE 20176545573 Active Fabiola Johnson APRN Active ADZENYS XR-ODT 6.3 MG ORAL TBED 1 tab po daily for ADHD AMPHETAMINE 57764842414 Active Fabiola Johnson APRN Active BENADRYL 25 MG CAP 4 po at bedtime for insomnia DIPHENHYDRAMINE HCL 68012716786 Active Fabiola Johnson APRN Active KLONOPIN 1 MG ORAL TABS 1 tab po TID CLONAZEPAM 55090531468 Active Fabiola Johnson APRN Active VALIUM 5 MG TAB Take 1-2 tablets daily DIAZEPAM 74324930016 No Longer Active Fabiola Johnson APRN Active METOPROLOL TARTRATE 25 MG ORAL TABS 1/2 tablet twice daily for heart rate and blood pressure METOPROLOL TARTRATE 37190899049 No Longer Active Fabiola Johsnon APRN Active MIRALAX ORAL POWD 17GMS DAILY IN WATER POLYETHYLENE GLYCOL 3350 37901736725 Active Vishal Hui MD Active VIIBRYD 10 MG ORAL TABS Take 1 tablet once a day VILAZODONE HCL 57715385610 Active Ahmet Carbajal MD Active MIRALAX PACK 1 po qd PRN Constipation POLYETHYLENE GLYCOL 3350 51600863083 No Longer Active Ahmet Carbajal MD Active MINIPRESS 2 MG CAPS 4 cap po at night PRAZOSIN HCL 76365758168 No Longer Active Ahmet Carbajal MD Active PIROXICAM 20 MG CAPS 1 cap po qd PRN Pain PIROXICAM 40948209988 No Longer Active Ahmet Carbajal MD Active TRAMADOL HCL 50 MG TABS 1-2 po TID PRN Pain TRAMADOL HCL 65809384482 No Longer Active Ahmet Carbajal MD Active METOPROLOL TARTRATE 50 MG TAB 1 po bid METOPROLOL TARTRATE 03853301996 No Longer Active Ahmet Carbajal MD Active ABILIFY 15 MG ORAL TABS 1 tab daily ARIPIPRAZOLE 87989318267 No Longer Active Ahmet Carbajal MD Active PROZAC 20 MG ORAL CAPS 1 tab daily FLUOXETINE HCL 20469477858 No Longer Active Ahmet Carbajal MD Active AMBIEN 5 MG ORAL TABS 1 tab at bedtime ZOLPIDEM TARTRATE 62357730292 No Longer Active Ahmet Carbajal MD Active PREDNISONE 20 MG TAB 2 tabs daily for 4 days, 1 tab daily for 4 days, 1/2 tab daily for 4 days PREDNISONE 19291832915 No Longer Active Ahmet Carbajal MD Active KEFLEX 500 MG CAP 1 po TID x 10 days CEPHALEXIN 83714076721 No Longer Active Vishal Hui MD Active IMITREX 50 MG ORAL TABS 1/2 tab every 6 hours prn SUMATRIPTAN SUCCINATE 89775007120 Active Tataina Mauricio WALTERSN Active TOPAMAX 50 MG ORAL TABS 1 tab twice daily TOPIRAMATE 52304515246 Active Vishal Hui MD Active SAPHRIS 5 MG SUBL 1 po bid ASENAPINE MALEATE 49784071849 No Longer Active 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 APRN Active LATUDA 80 MG TABS Take one by mouth daily LURASIDONE HCL 19633107612 No Longer Active 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 APRN Active AMLODIPINE BESYLATE 5 MG TABS 1 tablet by mouth daily AMLODIPINE BESYLATE 49060536342 No Longer Active 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 APRN Active AMITRIPTYLINE HCL 100 MG TAB one at hs AMITRIPTYLINE HCL 60174702423 No Longer Active Vishal Hui MD Active TRAZODONE HCL 100 MG TAB take 1 at bedtime TRAZODONE HCL 65829781769 No Longer Active Vishal Hui MD Active VYVANSE 40 MG CAPS 1 daily, LISDEXAMFETAMINE DIMESYLATE 23121420583 No Longer Active Vishal Hui MD Active IBUPROFEN 600 MG TAB 1 po TID PRN IBUPROFEN 67754129670 No Longer Active Vishal Hui MD Active PROZAC 20 MG CAP Take one by mouth daily FLUOXETINE HCL 54331580118 No Longer Active Vishal Hui MD Active ZOFRAN 4 MG TABS 1 po q6hr PRN Nausea ONDANSETRON HCL Active Vishal Hui MD Active BACTRIM DS 800-160 MG TABS 1 pill by mouth twice daily SULFAMETHOXAZOLE-TRIMETHOPRIM 21499901986 No Longer Active Sahara Rodriguez MD PhD Active DIFLUCAN 150 MG TAB 1 tablet by mouth daily FLUCONAZOLE 48360977508 No Longer Active Vishal Hui MD Active TIZANIDINE HCL 4 MG TABS 1 po q6hr PRN Muscle Spasm/Back Pain TIZANIDINE HCL 97601883490 Active Vishal Hui MD Active CLINDAMYCIN HCL 150 MG CAPS 1 four times a day CLINDAMYCIN HCL 40366327344 No Longer Active Neeraj Collins MD Active KEFLEX 500 MG ORAL CAPS 1 cap QID by mouth CEPHALEXIN 77588405645 No Longer Active Neeraj Collins MD Active DIFLUCAN 150 MG TABS 1 pill every other day x 2 doses FLUCONAZOLE 31498093371 No Longer Active Sahara Rodriguez MD PhD Active MELATONIN 3 MG CAPS 2 po q hs MELATONIN 17865402435 No Longer Active Sahara Rodriguez MD PhD Active MULTIVITAMINS CAPS Take one by mouth daily MULTIPLE VITAMIN 91180198455 No Longer Active Sahara Rodriguez MD PhD Active BACTRIM DS 800-160 MG TAB 1 tab by mouth twice daily TRIMETHOPRIM-SULFAMETHOXAZOLE 34951601540 No Longer Active Sahara Rodriguez MD PhD Active [facility] PROBIOTIC ORAL CHEW 2 daily po PROBIOTIC PRODUCT 11920835670 No Longer Active Sahara Rodriguez MD PhD Active BACTRIM DS 800-160 MG TABS 1 po BID x 7 days SULFAMETHOXAZOLE-TRIMETHOPRIM 64934147850 No Longer Active Vishal Hui MD Active CHANTIX STARTING MONTH EARNEST 0.5 MG X 11 & 1 MG X 42 TABS 0.5mg daily for 3 days , then 0.5mg BID for 4 days, then 1mg BID VARENICLINE TARTRATE 69700544444 No Longer Active TAMARA Gray Active VERAPAMIL HCL CR 120 MG TAB CR 1 po bid VERAPAMIL HCL 14661625872 No Longer Active Vishal Hui MD Active METOPROLOL SUCCINATE 50 MG TB24 1 tablet by mouth daily METOPROLOL SUCCINATE 57813782764 No Longer Active Vishal Hui MD Active SAPHRIS 10 MG SUBL 1 tab po bid ASENAPINE MALEATE 10396709100 No Longer Active Vishal Hui MD Active LISINOPRIL 20 MG TABS 1 tab po qd LISINOPRIL 18042152198 No Longer Active Vishal Hui MD Active LATUDA 20 MG TABS Take one by mouth daily LURASIDONE HCL 74430547414 No Longer Active Vishal Hui MD Active TRAZODONE HCL 50 MG TABS 1/2 tab po qd prn for anxiety TRAZODONE HCL 10849488078 No Longer Active Vishal Hui MD Active OMEPRAZOLE 20 MG TBEC 1 po q a.m. 30min prior to first food intake OMEPRAZOLE 78547790355 Active Vishal Hui MD Active RANITIDINE HCL 150 MG CAPS 1 twice a day RANITIDINE HCL 89468958122 Active Jillina Frazell SANFORIZER Active LINZESS 290 MCG CAPS Take one by mouth daily LINACLOTIDE 56787049429 No Longer Active Vishal Hui MD Active SAPHRIS 5 MG SUBL 1 tab po qd ASENAPINE MALEATE 53390981084 No Longer Active Vishal Hui MD Active ZALEPLON 10 MG CAPS 1 cap po every other night ZALEPLON 75657774523 No Longer Active Vishal Hui MD Active LYRICA 50 MG CAPS 1 tab po TID PREGABALIN 15096558071 No Longer Active Vishal Hui MD Active LORATADINE 10 MG TABS 1 tab po qd LORATADINE 27029176217 No Longer Active Vishal Hui MD Active VERAPAMIL HCL ER 180 MG CR-TABS 1 tab po bid VERAPAMIL HCL 72884091988 No Longer Active Vishal Hui MD Active MIRALAX POWD 1 capfull once daily POLYETHYLENE GLYCOL 3350 50262260200 No Longer Active Vishal Hui MD Active PREDNISONE 20 MG TABS 1 tab po qd PREDNISONE 73853635109 No Longer Active Renzo Thornton DO Active LEVOFLOXACIN 500 MG TABS 1 tab po qd LEVOFLOXACIN 20338792067 No Longer Active Renzo Thornton DO Active BUSPIRONE HCL 15 MG TABS 1 tab po TID BUSPIRONE HCL 03795696675 No Longer Active Renzo Thornton DO Active BENZTROPINE MESYLATE 1 MG TABS 1 tab po qd BENZTROPINE MESYLATE 78163566051 No Longer Active Renzo Thornton DO Active ATENOLOL 25 MG TABS 1 tab po qd ATENOLOL 26263371056 No Longer Active Renzo Thornton DO Active ESCITALOPRAM OXALATE 20 MG TABS 1 tab po qd ESCITALOPRAM OXALATE 80924121923 No Longer Active Renzo Thornton DO Active ADVAIR DISKUS 250-50 MCG/DOSE AEPB 1 puff BID FLUTICASONE-SALMETEROL 76007833178 No Longer Active Renzo Thornton DO Active PREDNISONE 20 MG TAB 2 tabs daily for 3 days, 1 tab daily for 3 days, 1/2 tab daily for 2 days PREDNISONE 80414944525 No Longer Active Vishal Hui MD Active CEFDINIR 300 MG CAPS by mouth twice a day CEFDINIR 33249939136 No Longer Active Vishal Hui MD Active LANSOPRAZOLE 30 MG CPDR 1 cap po qd LANSOPRAZOLE 60594961459 No Longer Active Vishal Hui MD Active BACLOFEN 20 MG TABS 1 tab po tid BACLOFEN 38756462866 No Longer Active Vishal Hui MD Active ADVAIR DISKUS 250-50 MCG/DOSE AEPB 1 puff BID ADVAIR DISKUS 250-50 MCG/DOSE AEPB FLUTICASONE-SALMETEROL Inactive ESCITALOPRAM OXALATE 20 MG TABS 1 tab po qd ESCITALOPRAM OXALATE 20 MG TABS 490990 ESCITALOPRAM OXALATE Inactive ATENOLOL 25 MG TABS 1 tab po qd ATENOLOL 25 MG TABS 311985 ATENOLOL Inactive BENZTROPINE MESYLATE 1 MG TABS 1 tab po qd BENZTROPINE MESYLATE 1 MG TABS 084455 BENZTROPINE MESYLATE Inactive BUSPIRONE HCL 15 MG TABS 1 tab po TID BUSPIRONE HCL 15 MG TABS 029829 BUSPIRONE HCL Inactive LEVOFLOXACIN 500 MG TABS 1 tab po qd LEVOFLOXACIN 500 MG TABS 338092 LEVOFLOXACIN Inactive PREDNISONE 20 MG TABS 1 tab po qd PREDNISONE 20 MG TABS 884453 PREDNISONE Inactive MIRALAX POWD 1 capfull once daily MIRALAX POWD 752257 POLYETHYLENE GLYCOL 3350 Inactive VERAPAMIL HCL ER 180 MG CR-TABS 1 tab po bid VERAPAMIL HCL ER 180 MG CR-TABS VERAPAMIL HCL Inactive LORATADINE 10 MG TABS 1 tab po qd LORATADINE 10 MG TABS 213546 LORATADINE Inactive LYRICA 50 MG CAPS 1 tab po TID LYRICA 50 MG CAPS PREGABALIN Inactive ZALEPLON 10 MG CAPS 1 cap po every other night ZALEPLON 10 MG CAPS 649451 ZALEPLON Inactive SAPHRIS 5 MG SUBL 1 tab po qd SAPHRIS 5 MG SUBL ASENAPINE MALEATE Inactive TRAZODONE HCL 50 MG TABS 1/2 tab po qd prn for anxiety TRAZODONE HCL 50 MG TABS 372829 TRAZODONE HCL Inactive LATUDA 20 MG TABS Take one by mouth daily LATUDA 20 MG TABS LURASIDONE HCL Inactive LISINOPRIL 20 MG TABS 1 tab po qd LISINOPRIL 20 MG TABS 591930 LISINOPRIL Inactive SAPHRIS 10 MG SUBL 1 [...] twice daily BACTRIM DS 800-160 MG TAB 354255 TRIMETHOPRIM-SULFAMETHOXAZOLE Inactive MULTIVITAMINS CAPS Take one by mouth daily MULTIVITAMINS CAPS MULTIPLE VITAMIN Inactive MELATONIN 3 MG CAPS 2 po q hs MELATONIN 3 MG CAPS 251059 MELATONIN Inactive KEFLEX 500 MG ORAL CAPS 1 cap QID by mouth KEFLEX 500 MG ORAL CAPS 037008 CEPHALEXIN Inactive CLINDAMYCIN HCL 150 MG CAPS 1 four times a day CLINDAMYCIN HCL 150 MG CAPS 19740326 CLINDAMYCIN HCL Inactive DIFLUCAN 150 MG TAB 1 tablet by mouth daily DIFLUCAN 150 MG TAB 977724 FLUCONAZOLE Inactive PROZAC 20 MG CAP Take one by mouth daily PROZAC 20 MG CAP 126146 FLUOXETINE HCL Inactive IBUPROFEN 600 MG TAB 1 po TID PRN IBUPROFEN 600 MG TAB IBUPROFEN Inactive VYVANSE 40 MG CAPS 1 daily, VYVANSE 40 MG CAPS LISDEXAMFETAMINE DIMESYLATE Inactive TRAZODONE HCL 100 MG TAB take 1 at bedtime TRAZODONE HCL 100 MG TAB 244631 TRAZODONE HCL Inactive AMITRIPTYLINE HCL 100 MG TAB one at hs AMITRIPTYLINE HCL 100 MG TAB 819467 AMITRIPTYLINE HCL Inactive AMLODIPINE BESYLATE 5 MG TABS 1 tablet by mouth daily AMLODIPINE BESYLATE 5 MG TABS 767553 AMLODIPINE BESYLATE Inactive LATUDA 80 MG TABS Take one by mouth daily LATUDA 80 MG TABS LURASIDONE HCL Inactive SAPHRIS 5 MG SUBL 1 po bid SAPHRIS 5 MG SUBL ASENAPINE MALEATE Inactive PREDNISONE 20 MG TAB 2 tabs daily for 4 days, 1 tab daily for 4 days, 1/2 tab daily for 4 days PREDNISONE 20 MG TAB 534858 PREDNISONE Inactive AMBIEN 5 MG ORAL TABS 1 tab at bedtime AMBIEN 5 MG ORAL TABS 085585 ZOLPIDEM TARTRATE Inactive PROZAC 20 MG ORAL CAPS 1 tab daily PROZAC 20 MG ORAL CAPS 040513 FLUOXETINE HCL Inactive ABILIFY 15 MG ORAL TABS 1 tab daily ABILIFY 15 MG ORAL TABS 992994 ARIPIPRAZOLE Inactive METOPROLOL TARTRATE 50 MG TAB 1 po bid METOPROLOL TARTRATE 50 MG TAB 617023 METOPROLOL TARTRATE Inactive TRAMADOL HCL 50 MG TABS 1-2 po TID PRN Pain TRAMADOL HCL 50 MG TABS 285696 TRAMADOL HCL Inactive PIROXICAM 20 MG CAPS 1 cap po qd PRN Pain PIROXICAM 20 MG CAPS 756852 PIROXICAM Inactive MINIPRESS 2 MG CAPS 4 cap po at night MINIPRESS 2 MG CAPS 823692 PRAZOSIN HCL Inactive MIRALAX PACK 1 po qd PRN Constipation MIRALAX PACK 124534 POLYETHYLENE GLYCOL 3350 Inactive METOPROLOL TARTRATE 25 MG ORAL TABS 1/2 tablet twice daily for heart rate and blood pressure METOPROLOL TARTRATE 25 MG ORAL TABS 243769 METOPROLOL TARTRATE Inactive VALIUM 5 MG TAB Take 1-2 tablets daily VALIUM 5 MG TAB 990789 DIAZEPAM Inactive FLAGYL 500 MG TAB 1 tablet by mouth bid FLAGYL 500 MG TAB 654196 METRONIDAZOLE Inactive DICLOFENAC POTASSIUM TABS Take 1 tablet twice a day (pt. is not sure of the dose.) DICLOFENAC POTASSIUM TABS DICLOFENAC POTASSIUM TABS Inactive CEFDINIR 300 MG CAPS by mouth twice a day CEFDINIR 300 MG CAPS 872010 CEFDINIR Inactive PREDNISONE 20 MG TAB 2 tabs daily for 3 days, 1 tab daily for 3 days, 1/2 tab daily for 2 days PREDNISONE 20 MG TAB 464592 PREDNISONE Inactive BACTRIM DS 800-160 MG TABS 1 po BID x 7 days BACTRIM DS 800-160 MG TABS 19820521 SULFAMETHOXAZOLE-TRIMETHOPRIM Inactive DIFLUCAN 150 MG TABS 1 pill every other day x 2 doses DIFLUCAN 150 MG TABS 476756 FLUCONAZOLE Inactive BACTRIM DS 800-160 MG TABS 1 pill by mouth twice daily BACTRIM DS 800-160 MG TABS 546457 SULFAMETHOXAZOLE-TRIMETHOPRIM Inactive KEFLEX 500 MG CAP 1 po TID x 10 days KEFLEX 500 MG CAP 962524 CEPHALEXIN Inactive Advance Directives Directive Description Start Date DISCUSSED WITH PATIENT -- NO DECISION MADE Vital Signs Date Name Value Unit Range Description blood pressure, diastolic - 8462-4 81 mm[Hg] [...] % 11.6-14.8 platelet count 394 10^3/MM^3 10*3/mm3 662-554 8881/01/11 leukocyte count, blood 13.8 10^3/MM^3 10*3/mm3 4.6-10.2 [...] Panel - Chemistry sodium, serum 139 mmol/L 769-789 6491/12/03 carbon dioxide, venous blood 28.5 mmol/L 21.0-32.0 [...] 5.5 % 4.3-6.0 cholesterol, serum 159 mg/dL 495-057 4274/12/03 triglyceride, serum, fasting 118 mg/dL 30-200 HDL [...] Panel - Chemistry sodium, serum 139 mmol/L 025-766 2594/12/22 carbon dioxide, venous blood 26.8 mmol/L 21.0-32.0 potassium, serum 4.2 mmol/L 3.5-5.2 chloride, serum 103 mmol/L 98-107 blood glucose 115 mg/dL 65-110 urea nitrogen, blood 20 mg/dL 7-18 creatinine, serum 0.90 mg/dL 0.55-1.30 alanine aminotransferase (SGPT), serum 38 U/L 12-78 aspartate aminotransferase (SGOT), serum 19 U/L 15-37 calcium, serum 8.6 mg/dL 8.5-10.1 bilirubin, serum, total 0.30 mg/dL 0.00-1.00 sodium, serum 139 mmol/L 722-211 1249/01/11 carbon dioxide, venous blood 26.6 mmol/L 21.0-32.0 potassium, serum 4.1 mmol/L 3.5-5.2 chloride, serum 100 mmol/L 98-107 blood glucose 86 mg/dL 65-110 urea nitrogen, blood 16 mg/dL 7-18 creatinine, serum 1.00 mg/dL 0.55-1.30 alanine aminotransferase (SGPT), serum 48 U/L aspartate aminotransferase (SGOT), serum 17 U/L - calcium, serum 9.1 mg/dL 8.5-10.1 bilirubin, serum, total 0.40 mg/dL 0.00-1.00 sodium, serum 142 mmol/L 190-721 8528/06/08 carbon dioxide, venous blood 27.6 mmol/L 21.0-32.0 potassium, serum 4.0 mmol/L 3.5-5.2 chloride, serum 105 mmol/L 98-107 blood glucose 95 mg/dL 65-110 urea nitrogen, blood 8 mg/dL 7-18 creatinine, serum 0.75 mg/dL 0.55-1.30 alanine aminotransferase (SGPT), serum 49 U/L aspartate aminotransferase (SGOT), serum 28 U/L 15-37 calcium, serum 9.4 mg/dL 8.5-10.1 bilirubin, serum, total 0.30 mg/dL 0.00-1.00 sodium, serum 140 mmol/L 686-245 1018/08/08 carbon dioxide, venous blood 33.7 mmol/L 21.0-32.0 [...] Rate - Chemistry sodium, serum 139 mmol/L 473-793 8791/12/11 carbon dioxide, venous blood 25.4 mmol/L 21.0-32.0 potassium, serum 3.9 mmol/L 3.5-5.2 chloride, serum 105 mmol/L 98-107 blood glucose 98 mg/dL 65-110 urea nitrogen, blood 18 mg/dL 7-18 creatinine, serum 0.96 mg/dL 0.55-1.30 alanine aminotransferase (SGPT), serum 34 U/L 12-78 aspartate aminotransferase (SGOT), serum 12 U/L 15-37 calcium, serum 8.6 mg/dL 8.5-10.1 bilirubin, serum, total 0.20 mg/dL 0.00-1.00 Lab Report: LH/Adult/615, FSH/Adult/470 - Chemistry luteinizing hormone, serum 2.7 m[iU]/mL follicle stimulating hormone, serum 5.8 m[iU]/mL Lab Report: MonoSpot, UADIP W/MICRO, AUTO - Chemistry protein, total [...] 1.020 1.000-1.030 pH, urine, semiquantitative 6.0 5.0-8.5 Lab Report: Thyroid Stimulating Hormone (L), Free Thyroxine (L) - Chemistry TSH 1.48 m[iU]/mL 0.36-3.74 thyroxine, serum, free 0.98 ng/dL 0.76-1.46 TSH 2.35 m[iU]/mL 0.36-3.74 thyroxine, serum, free 1.02 ng/dL 0.76-1.46 Lab Report: UADIP W/MICRO, AUTO - Chemistry [...] 6.0 5.0-8.5 urobilinogen, urine, semiquantitative (dipstick) 0.2 Normal [...] 1.025 1.000-1.030 pH, urine, semiquantitative 5.5 5.0-8.5 glucose, [...] >=1.030 1.000-1.030 pH, urine, semiquantitative 5.5 5.0-8.5 urine color Yellow Colorless;Lightyellow;Straw;Yellow appearance, urine Clear Clear specific gravity, urine 1.025 1.000-1.030 pH, urine, semiquantitative 6.0 5.0-8.5 urobilinogen, urine, semiquantitative (dipstick) 0.2 Normal [...] mg/dL Encounters Code Encounter Date Provider Facility CPT-71384 Level 3 Est. Patient 13:29:16 CDT Vishal Hui MD [facility] CPT-07765 Level 3 Est. Patient 14:27:52 CDT Neeraj Collins MD [facility] CPT-42868 Level 3 Est. Patient 08:56:03 CDT 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 [facility] CPT-98986 Level 4 Est. Patient 12:11:48 CDT Fabiola Johnson [facility] CPT-42454 Level 3 New Patient 16:53:37 CDT Albert Caldera MD [facility] CPT-92781 Level 3 Est. Patient 11:25:49 CDT Renzo W Norberto [facility] CPT-63778 Level 3 Est. Patient 15:22:01 CDT Ahmet Carbajal MD [facility] CPT-61513 Level 4 Est. Patient 09:00:51 BILLPOSTING SUPERVISOR Vishal Hui MD [facility] CPT-43500 Level 3 Est. Patient 11:37:33 BILLPOSTING SUPERVISOR Vishal Hui MD [facility] CPT-16645 Level 3 Est. Patient 08:41:09 BILLPOSTING SUPERVISOR Vishal Hui MD [facility] CPT-13634 Level 4 Est. Patient 10:19:35 BILLPOSTING SUPERVISOR Vishal Hui MD [facility] CPT-51610 Level 3 Est. Patient 13:35:45 CDT Vishal Hui MD [facility] CPT-07418 Level 4 Est. Patient 10:08:37 CDT Vishal Hui MD [facility] CPT-27677 Level 3 Est. Patient 11:22:10 CDT Vishal Hui MD [facility] CPT-37828 Level 3 Est. Patient 11:03:32 CDT Sahara Rodriguez MD [facility]-53512 Level 3 Est. Patient 09:41:35 CDT Vishal Hui MD [facility] CPT-96040 Level 3 Est. Patient 12:00:41 CDT Neeraj Collins MD [facility][note 3]-[id number] Level 3 Est. Patient 09:16:24 CDT Vishal Hui MD [facility] CPT-88117 Level 4 Est. Patient 13:59:09 CDT Neeraj Collins MD [facility][note 3]-[id number] Level 3 Est. Patient 15:19:43 CDT Renzo Thornton DO [facility] CPT-70973 Level 3 Est. Patient 18:10:26 CDT Sahara Rodriguez MD PhD [facility] CPT-11633 Level 3 Est. Patient 14:49:50 CDT Vishal uHi MD [facility] CPT-39857 Level 4 Est. Patient 18:41:46 CDT Neeraj Collins MD [facility] CPT-71355 Level 4 Est. Patient 09:18:38 BILLPOSTING SUPERVISOR Vishal Hui MD [facility] CPT-65587 Level 3 Est. Patient 14:43:55 BILLPOSTING SUPERVISOR Vishal Hui MD [facility] CPT-75210 Level 3 Est. Patient 15:26:33 BILLPOSTING SUPERVISOR Sahara oRdriguez MD PhD [facility] CPT-13804 Level 3 Est. Patient 10:32:14 BILLPOSTING SUPERVISOR Vishal Hui MD [facility] CPT-46928 Level 3 Est. Patient 15:12:52 BILLPOSTING SUPERVISOR Vishal Hui MD [facility] CPT-67866 Level 4 Est. Patient 09:19:27 CDT Vishal Hui MD [facility] CPT-47115 Level 3 Est. Patient 15:53:00 CDT Renzo Thornton [facility] CPT-72218 Level 3 Est. Patient 15:50:30 CDT Renzo Thornton [facility] CPT-45842 Level 3 Est. Patient 16:55:24 CDT Vishal Hui MD [facility] Procedures Code Procedure Name Date Entry Date Standard Description CPT-45245 Abx/Therapy Injection 13:29:56 CDT CPT-44878 Abx/Therapy Injection 08:36:16 CDT CPT-11229 Wet Mount - LAB USE ONLY 17:44:58 CDT CPT-98173 UA w micro - LAB USE ONLY 17:44:58 CDT CPT-71739 CMP - LAB USE ONLY 17:44:58 CDT CPT-22630 Venipuncture Draw Fee 17:44:58 CDT CPT-22706 Cervical Min 4V - XRAY USE ONLY 09:01:40 CDT CPT-00957 Chest 2V Frontal and Lat - XRAY USE ONLY 11:06:31 CDT CPT-75875 EKG Trac and Interp - XRAY USE ONLY 11:31:43 CDT 08/26 CPT-J3420 Vitamin B12 1000mcg (Cyanocobalamin) 08:10:26 BILLPOSTING SUPERVISOR 04/12 CPT-39188 Abx/Therapy Injection 08:10:26 BILLPOSTING SUPERVISOR CPT-G0438 Initial Annual Wellness Exam 19:01:01 BILLPOSTING SUPERVISOR CPT-J3420 Vitamin B12 1000mcg (Cyanocobalamin) 16:57:46 CDT 08/14 CPT-86974 Recombivax HB Injection Suspension 5 MCG/0.5ML 08:37:50 BILLPOSTING SUPERVISOR CPT-52124 Immunization Single Admin 08:37:50 BILLPOSTING SUPERVISOR CPT-J3420 Vitamin B12 1000mcg (Cyanocobalamin) 08:32:16 BILLPOSTING SUPERVISOR 03/11 CPT-45868 Abx/Therapy Injection 08:32:16 BILLPOSTING SUPERVISOR CPT-25655 Chest 2V Frontal and Lat 11:46:38 BILLPOSTING SUPERVISOR CPT-18477 Venipuncture Draw Fee 09:12:45 BILLPOSTING SUPERVISOR CPT-J3420 Vitamin B12 1000mcg (Cyanocobalamin) 08:50:15 BILLPOSTING SUPERVISOR 02/08 CPT-65017 Abx/Therapy Injection 08:50:15 BILLPOSTING SUPERVISOR CPT-Cryo Cryotherapy 10:19:35 BILLPOSTING SUPERVISOR CPT-000 Give Appropriate Flu Vaccine 09:22:16 CDT CPT-J3420 Vitamin B12 1000mcg (Cyanocobalamin) 19:08:57 CDT 01/11 CPT-20555 Abx/Therapy Injection 19:08:57 CDT CPT-J3420 Vitamin B12 1000mcg (Cyanocobalamin) 08:19:08 CDT 12/11 CPT-44457 Abx/Therapy Injection 08:19:08 CDT CPT-J3420 Vitamin B12 1000mcg (Cyanocobalamin) 14:48:00 CDT 11/09 CPT-41090 Abx/Therapy Injection 14:47:59 CDT CPT-J3420 Vitamin B12 1000mcg (Cyanocobalamin) 08:34:04 CDT 10/09 CPT-41044 Abx/Therapy Injection 08:34:04 CDT CPT-J3420 Vitamin B12 1000mcg (Cyanocobalamin) 09:18:52 CDT 09/11 CPT-47149 Abx/Therapy Injection 09:18:52 CDT CPT-J3420 Vitamin B12 1000mcg (Cyanocobalamin) 08:35:44 CDT 09/04 CPT-94209 Abx/Therapy Injection 08:35:44 CDT CPT-72203 Immunization Single Admin 11:07:16 CDT CPT-49156 Hepatitis B adult IM 11:07:16 CDT CPT-J3420 Vitamin B12 1000mcg (Cyanocobalamin) 11:00:49 CDT 08/28 CPT-J1040 Depo Medrol 80 mg (Methyl Prednisolone Acetate) 11:00: 49 CDT CPT-29343 Abx/Therapy Injection 11:00:49 CDT CPT-J1040 Depo Medrol 80 mg (Methyl Prednisolone Acetate) 09:16: 23 CDT CPT-J3420 Vitamin B12 1000mcg (Cyanocobalamin) 08:27:05 CDT 08/20 CPT-01875 Abx/Therapy Injection 08:27:05 CDT CPT-33969 Recombivax HB Injection Suspension 5 MCG/0.5ML 10:00:41 CDT CPT-56231 Administration single or combination vaccine inc oral 10 :00:41 CDT CPT-10608 Sono transvag pelvis non OB uterus ovaries cervix 16:36: 57 CDT CPT-18929 LS spine comp w obliq 09:50:55 BILLPOSTING SUPERVISOR CPT-58434 Abd compl w upright 09:50:55 BILLPOSTING SUPERVISOR CPT-J1100 Decadron 4mg (Dexamethasone) 15:51:24 BILLPOSTING SUPERVISOR CPT-J1030 Depo Medrol 40 mg (Methyl Prednisolone Acetate) 15:51: 24 BILLPOSTING SUPERVISOR CPT-03871 Abx/Therapy Injection 15:51:24 BILLPOSTING SUPERVISOR CPT-J1100 Decadron 4mg (Dexamethasone) 15:26:33 BILLPOSTING SUPERVISOR CPT-J1030 Depo Medrol 40 mg (Methyl Prednisolone Acetate) 15:26: 33 BILLPOSTING SUPERVISOR CPT-76477 Sono retroperitoneal complete kidneys and bladder 17:15: 30 CDT CPT-68592 Abd compl w upright 16:09:25 CDT CPT-J1100 Decadron 8mg (Dexamethasone) 17:07:57 CDT CPT-74434 Abx/Therapy Injection 17:07:57 CDT CPT-J1100 Decadron 8mg (Dexamethasone) 16:55:24 CDT CPT-07926 Chest 2V Frontal and Lat 16:32:44 CDT
--- OUTSIDE RECORDS SUMMARY | 2016-11-04 10:43 | XMS REPORT | Clinical Summary ---
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 Morbid obesity 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 Active Juliet Kimbrough [employer]ER Dependence on other enabling machines and devices Gait unsteady 781.2 Active Juliet Kimbrough APRN Abnormality of gait Lipoma 214.9 Active Ahmet Carbajal MD Lipoma, unspecified site Abdominal pain, RUQ 789.01 Active Ahmet Carbajal MD Abdominal pain, right upper quadrant Chest pain, acute 786.50 Active Renzo Thornton DO Unspecified chest pain Anxiety Disorder ICD-300.00 Inactive Vishal Hui MD [...] Inactive Vishal Hui MD Hot flashes ICD-627.2 Jim Hui MD Personality change ICD-301.9 Jim Hui MD Leukocytosis ICD-288.60 Jim Hui MD UTI ICD-599.0 Jim Hui MD Elevated blood glucose ICD-790.29 Jim Hui MD Medication List Medication Instructions Start Date Stop Date Generic Name NDC Status Provider Patient Instruction METOPROLOL TARTRATE 25 MG ORAL TABS 1/2 tablet twice daily for heart rate and blood pressure METOPROLOL TARTRATE 75851932969 Active Renzo Thornton DO Active VALIUM 5 MG TAB Take 1-2 tablets daily DIAZEPAM 23781625840 Active Ahmet Carbajal MD Active VIIBRYD 10 MG ORAL TABS Take 1 tablet once a day VILAZODONE HCL 09748147533 Active Ahmet Carbajal MD Active DICLOFENAC POTASSIUM TABS Take 1 tablet twice a day (pt. is not sure of the dose.) DICLOFENAC POTASSIUM TABS 87725520782 Active Ahmet Carbajal MD Active MIRALAX PACK 1 po qd PRN Constipation POLYETHYLENE GLYCOL 3350 52948320896 No Longer Active Ahmet Carbajal MD Active MINIPRESS 2 MG CAPS 4 cap po at night PRAZOSIN HCL 76370309356 No Longer Active Ahmet Carbajal MD Active PIROXICAM 20 MG CAPS 1 cap po qd PRN Pain PIROXICAM 20473267157 No Longer Active Ahmet Carbajal MD Active TRAMADOL HCL 50 MG TABS 1-2 po TID PRN Pain TRAMADOL HCL 05543634537 No Longer Active Ahmet Carbajal MD Active METOPROLOL TARTRATE 50 MG TAB 1 po bid METOPROLOL TARTRATE 73372158706 No Longer Active Ahmet Carbajal MD Active ABILIFY 15 MG ORAL TABS 1 tab daily ARIPIPRAZOLE 05108346968 No Longer Active Ahmet Carbajal MD Active PROZAC 20 MG ORAL CAPS 1 tab daily FLUOXETINE HCL 99402308692 No Longer Active Ahmet Carbajal MD Active AMBIEN 5 MG ORAL TABS 1 tab at bedtime ZOLPIDEM TARTRATE 98514885864 No Longer Active Ahmet Carbajal MD Active PREDNISONE 20 MG TAB 2 tabs daily for 4 days, 1 tab daily for 4 days, 1/2 tab daily for 4 days PREDNISONE 47348067824 No Longer Active Ahmet Carbajal MD Active KEFLEX 500 MG CAP 1 po TID x 10 days CEPHALEXIN 07168618525 No Longer Active Vishal Hui MD Active ABILIFY MAINTENA 400 MG IM SUSR Injection once per month ARIPIPRAZOLE 29568564418 Active Juliet Kimbrough APRN Active IMITREX 50 MG ORAL TABS 1/2 tab every 6 hours prn SUMATRIPTAN SUCCINATE 79315647723 Active Jioral Martínez APRN Active TOPAMAX 50 MG ORAL TABS 1 tab twice daily TOPIRAMATE 98628386479 Active Vishal Hui MD Active SAPHRIS 5 MG SUBL 1 po bid ASENAPINE MALEATE 74526236196 No Longer Active 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 APRN Active LATUDA 80 MG TABS Take one by mouth daily LURASIDONE HCL 77999857339 No Longer Active 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 APRN Active AMLODIPINE BESYLATE 5 MG TABS 1 tablet by mouth daily AMLODIPINE BESYLATE 26656698575 No Longer Active 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 APRN Active AMITRIPTYLINE HCL 100 MG TAB one at hs AMITRIPTYLINE HCL 27523889287 No Longer Active Vishal Hui MD Active TRAZODONE HCL 100 MG TAB take 1 at bedtime TRAZODONE HCL 43942258595 No Longer Active Vishal Hui MD Active VYVANSE 40 MG CAPS 1 daily, LISDEXAMFETAMINE DIMESYLATE 08228429484 No Longer Active Vishal Hui MD Active IBUPROFEN 600 MG TAB 1 po TID PRN IBUPROFEN 15790147227 No Longer Active Vishal Hui MD Active PROZAC 20 MG CAP Take one by mouth daily FLUOXETINE HCL 24387898042 No Longer Active Vishal Hui MD Active ZOFRAN 4 MG TABS 1 po q6hr PRN Nausea ONDANSETRON HCL Active Vishal Hui MD Active BACTRIM DS 800-160 MG TABS 1 pill by mouth twice daily SULFAMETHOXAZOLE-TRIMETHOPRIM 53490537219 No Longer Active Sahara Rodriguez MD PhD Active DIFLUCAN 150 MG TAB 1 tablet by mouth daily FLUCONAZOLE 77597779090 No Longer Active Vishal Hui MD Active TIZANIDINE HCL 4 MG TABS 1 po q6hr PRN Muscle Spasm/Back Pain TIZANIDINE HCL 90958566305 Active Vishal Hui MD Active CLINDAMYCIN HCL 150 MG CAPS 1 four times a day CLINDAMYCIN HCL 06123600285 No Longer Active Neeraj Collins MD Active KEFLEX 500 MG ORAL CAPS 1 cap QID by mouth CEPHALEXIN 48868981610 No Longer Active Neeraj Collins MD Active DIFLUCAN 150 MG TABS 1 pill every other day x 2 doses FLUCONAZOLE 83889571668 No Longer Active Sahara Rodriguez MD PhD Active MELATONIN 3 MG CAPS 2 po q hs MELATONIN 79580665176 No Longer Active Sahara Rodriguez MD PhD Active MULTIVITAMINS CAPS Take one by mouth daily MULTIPLE VITAMIN 63561395497 No Longer Active Sahara Rodriguez MD PhD Active BACTRIM DS 800-160 MG TAB 1 tab by mouth twice daily TRIMETHOPRIM-SULFAMETHOXAZOLE 04458124244 No Longer Active Sahara Rodriguez MD PhD Active [facility] PROBIOTIC ORAL CHEW 2 daily po PROBIOTIC PRODUCT 36087756012 No Longer Active Sahara Rodriguez MD PhD Active BACTRIM DS 800-160 MG TABS 1 po BID x 7 days SULFAMETHOXAZOLE-TRIMETHOPRIM 10902063696 No Longer Active Vishal Hui MD Active CHANTIX STARTING MONTH EARNEST 0.5 MG X 11 & 1 MG X 42 TABS 0.5mg daily for 3 days , then 0.5mg BID for 4 days, then 1mg BID VARENICLINE TARTRATE 38865982519 No Longer Active TAMARA Gray Active VERAPAMIL HCL CR 120 MG TAB CR 1 po bid VERAPAMIL HCL 27047735757 No Longer Active Vishal Hui MD Active METOPROLOL SUCCINATE 50 MG TB24 1 tablet by mouth daily METOPROLOL SUCCINATE 72786160974 No Longer Active Vishal Hui MD Active SAPHRIS 10 MG SUBL 1 tab po bid ASENAPINE MALEATE 45785930993 No Longer Active Vishal Hui MD Active LISINOPRIL 20 MG TABS 1 tab po qd LISINOPRIL 08927742391 No Longer Active Vishal Hui MD Active BENADRYL 25 MG CAP 2 po tid prn anxiety DIPHENHYDRAMINE HCL 79059826930 Active Vishal Hui MD Active LATUDA 20 MG TABS Take one by mouth daily LURASIDONE HCL 12844262667 No Longer Active Vishal Hui MD Active TRAZODONE HCL 50 MG TABS 1/2 tab po qd prn for anxiety TRAZODONE HCL 46496149792 No Longer Active Vishal Hui MD Active OMEPRAZOLE 20 MG TBEC 1 po q a.m. 30min prior to first food intake OMEPRAZOLE 05938391386 Active Vishal Hui MD Active RANITIDINE HCL 150 MG CAPS 1 twice a day RANITIDINE HCL 87410143206 Active Vishal Hui MD Active LINZESS 290 MCG CAPS Take one by mouth daily LINACLOTIDE 73204744648 No Longer Active Vishal Hui MD Active SAPHRIS 5 MG SUBL 1 tab po qd ASENAPINE MALEATE 55057373084 No Longer Active Vishal Hui MD Active ZALEPLON 10 MG CAPS 1 cap po every other night ZALEPLON 66186555714 No Longer Active Vishal Hui MD Active LYRICA 50 MG CAPS 1 tab po TID PREGABALIN 11786635514 No Longer Active Vishal Hui MD Active LORATADINE 10 MG TABS 1 tab po qd LORATADINE 80410994468 No Longer Active Vishal Hui MD Active VERAPAMIL HCL ER 180 MG CR-TABS 1 tab po bid VERAPAMIL HCL 62206320797 No Longer Active Vishal Hui MD Active MIRALAX POWD 1 capfull once daily POLYETHYLENE GLYCOL 3350 90872875122 No Longer Active Vishal Hui MD Active PREDNISONE 20 MG TABS 1 tab po qd PREDNISONE 05025778726 No Longer Active Renzo Thornton DO Active LEVOFLOXACIN 500 MG TABS 1 tab po qd LEVOFLOXACIN 74646393295 No Longer Active Renzo Thornton DO Active BUSPIRONE HCL 15 MG TABS 1 tab po TID BUSPIRONE HCL 05903592612 No Longer Active Renzo Thornton DO Active BENZTROPINE MESYLATE 1 MG TABS 1 tab po qd BENZTROPINE MESYLATE 02592439474 No Longer Active Renzo Thornton DO Active ATENOLOL 25 MG TABS 1 tab po qd ATENOLOL 22983652444 No Longer Active Renzo Thornton DO Active ESCITALOPRAM OXALATE 20 MG TABS 1 tab po qd ESCITALOPRAM OXALATE 61074831640 No Longer Active Renzo Thornton DO Active ADVAIR DISKUS 250-50 MCG/DOSE AEPB 1 puff BID FLUTICASONE-SALMETEROL 24093039632 No Longer Active Renzo Thornton DO Active PREDNISONE 20 MG TAB 2 tabs daily for 3 days, 1 tab daily for 3 days, 1/2 tab daily for 2 days PREDNISONE 74408278004 No Longer Active Vishal Hui MD Active CEFDINIR 300 MG CAPS by mouth twice a day CEFDINIR 19130292771 No Longer Active Vishal Hui MD Active LANSOPRAZOLE 30 MG CPDR 1 cap po qd LANSOPRAZOLE 40898055538 No Longer Active Vishal Hui MD Active BACLOFEN 20 MG TABS 1 tab po tid BACLOFEN 97548800007 No Longer Active Vishal Hui MD Active ADVAIR DISKUS 250-50 MCG/DOSE AEPB 1 puff BID ADVAIR DISKUS 250-50 MCG/DOSE AEPB FLUTICASONE-SALMETEROL Inactive ESCITALOPRAM OXALATE 20 MG TABS 1 tab po qd ESCITALOPRAM OXALATE 20 MG TABS 328493 ESCITALOPRAM OXALATE Inactive ATENOLOL 25 MG TABS 1 tab po qd ATENOLOL 25 MG TABS 839173 ATENOLOL Inactive BENZTROPINE MESYLATE 1 MG TABS 1 tab po qd BENZTROPINE MESYLATE 1 MG TABS 780824 BENZTROPINE MESYLATE Inactive BUSPIRONE HCL 15 MG TABS 1 tab po TID BUSPIRONE HCL 15 MG TABS 659250 BUSPIRONE HCL Inactive LEVOFLOXACIN 500 MG TABS 1 tab po qd LEVOFLOXACIN 500 MG TABS 626438 LEVOFLOXACIN Inactive PREDNISONE 20 MG TABS 1 tab po qd PREDNISONE 20 MG TABS 670591 PREDNISONE Inactive MIRALAX POWD 1 capfull once daily MIRALAX POWD 765262 POLYETHYLENE GLYCOL 3350 Inactive VERAPAMIL HCL ER 180 MG CR-TABS 1 tab po bid VERAPAMIL HCL ER 180 MG CR-TABS VERAPAMIL HCL Inactive LORATADINE 10 MG TABS 1 tab po qd LORATADINE 10 MG TABS 093146 LORATADINE Inactive LYRICA 50 MG CAPS 1 tab po TID LYRICA 50 MG CAPS PREGABALIN Inactive ZALEPLON 10 MG CAPS 1 cap po every other night ZALEPLON 10 MG CAPS 948640 ZALEPLON Inactive SAPHRIS 5 MG SUBL 1 tab po qd SAPHRIS 5 MG SUBL ASENAPINE MALEATE Inactive TRAZODONE HCL 50 MG TABS 1/2 tab po qd prn for anxiety TRAZODONE HCL 50 MG TABS 444665 TRAZODONE HCL Inactive LATUDA 20 MG TABS Take one by mouth daily LATUDA 20 MG TABS LURASIDONE HCL Inactive LISINOPRIL 20 MG TABS 1 tab po qd LISINOPRIL 20 MG TABS 118459 LISINOPRIL Inactive SAPHRIS 10 MG SUBL 1 [...] twice daily BACTRIM DS 800-160 MG TAB 310218 TRIMETHOPRIM-SULFAMETHOXAZOLE Inactive MULTIVITAMINS CAPS Take one by mouth daily MULTIVITAMINS CAPS MULTIPLE VITAMIN Inactive MELATONIN 3 MG CAPS 2 po q hs MELATONIN 3 MG CAPS 19950526 MELATONIN Inactive KEFLEX 500 MG ORAL CAPS 1 cap QID by mouth KEFLEX 500 MG ORAL CAPS 839034 CEPHALEXIN Inactive CLINDAMYCIN HCL 150 MG CAPS 1 four times a day CLINDAMYCIN HCL 150 MG CAPS 684762 CLINDAMYCIN HCL Inactive DIFLUCAN 150 MG TAB 1 tablet by mouth daily DIFLUCAN 150 MG TAB 463791 FLUCONAZOLE Inactive PROZAC 20 MG CAP Take one by mouth daily PROZAC 20 MG CAP 680111 FLUOXETINE HCL Inactive IBUPROFEN 600 MG TAB 1 po TID PRN IBUPROFEN 600 MG TAB 613422 IBUPROFEN Inactive VYVANSE 40 MG CAPS 1 daily, VYVANSE 40 MG CAPS LISDEXAMFETAMINE DIMESYLATE Inactive TRAZODONE HCL 100 MG TAB take 1 at bedtime TRAZODONE HCL 100 MG TAB 045898 TRAZODONE HCL Inactive AMITRIPTYLINE HCL 100 MG TAB one at hs AMITRIPTYLINE HCL 100 MG TAB 744085 AMITRIPTYLINE HCL Inactive AMLODIPINE BESYLATE 5 MG TABS 1 tablet by mouth daily AMLODIPINE BESYLATE 5 MG TABS 585346 AMLODIPINE BESYLATE Inactive LATUDA 80 MG TABS Take one by mouth daily LATUDA 80 MG TABS LURASIDONE HCL Inactive SAPHRIS 5 MG SUBL 1 po bid SAPHRIS 5 MG SUBL ASENAPINE MALEATE Inactive PREDNISONE 20 MG TAB 2 tabs daily for 4 days, 1 tab daily for 4 days, 1/2 tab daily for 4 days PREDNISONE 20 MG TAB 614589 PREDNISONE Inactive AMBIEN 5 MG ORAL TABS 1 tab at bedtime AMBIEN 5 MG ORAL TABS 125224 ZOLPIDEM TARTRATE Inactive PROZAC 20 MG ORAL CAPS 1 tab daily PROZAC 20 MG ORAL CAPS 924043 FLUOXETINE HCL Inactive ABILIFY 15 MG ORAL TABS 1 tab daily ABILIFY 15 MG ORAL TABS 821762 ARIPIPRAZOLE Inactive METOPROLOL TARTRATE 50 MG TAB 1 po bid METOPROLOL TARTRATE 50 MG TAB 869955 METOPROLOL TARTRATE Inactive TRAMADOL HCL 50 MG TABS 1-2 po TID PRN Pain TRAMADOL HCL 50 MG TABS 498183 TRAMADOL HCL Inactive PIROXICAM 20 MG CAPS 1 cap po qd PRN Pain PIROXICAM 20 MG CAPS 070192 PIROXICAM Inactive MINIPRESS 2 MG CAPS 4 cap po at night MINIPRESS 2 MG CAPS 863480 PRAZOSIN HCL Inactive MIRALAX PACK 1 po qd PRN Constipation MIRALAX PACK 577180 POLYETHYLENE GLYCOL 3350 Inactive CEFDINIR 300 MG CAPS by mouth twice a day CEFDINIR 300 MG CAPS 712082 CEFDINIR Inactive PREDNISONE 20 MG TAB 2 tabs daily for 3 days, 1 tab daily for 3 days, 1/2 tab daily for 2 days PREDNISONE 20 MG TAB 357015 PREDNISONE Inactive BACTRIM DS 800-160 MG TABS 1 po BID x 7 days BACTRIM DS 800-160 MG TABS 515291 SULFAMETHOXAZOLE-TRIMETHOPRIM Inactive DIFLUCAN 150 MG TABS 1 pill every other day x 2 doses DIFLUCAN 150 MG TABS 699892 FLUCONAZOLE Inactive BACTRIM DS 800-160 MG TABS 1 pill by mouth twice daily BACTRIM DS 800-160 MG TABS 968331 SULFAMETHOXAZOLE-TRIMETHOPRIM Inactive KEFLEX 500 MG CAP 1 po TID x 10 days KEFLEX 500 MG CAP 791483 CEPHALEXIN Inactive Advance Directives Directive Description Start Date DISCUSSED WITH PATIENT -- NO DECISION MADE Vital Signs Date Name Value Unit Range Description blood pressure, diastolic - 8462-4 95 mm[Hg] [...] BP mcnally blood pressure, systolic - 8480-6 141 mm[Hg] [...] % 11.6-14.8 platelet count 394 10^3/MM^3 10*3/mm3 435-697 7516/01/11 leukocyte count, blood 13.8 10^3/MM^3 10*3/mm3 4.6-10.2 [...] Panel - Chemistry sodium, serum 139 mmol/L 266-332 2285/12/03 carbon dioxide, venous blood 28.5 mmol/L 21.0-32.0 [...] 5.5 % 4.3-6.0 cholesterol, serum 159 mg/dL 599-455 7845/12/03 triglyceride, serum, fasting 118 mg/dL 30-200 HDL [...] Panel - Chemistry sodium, serum 139 mmol/L 897-235 6892/12/22 carbon dioxide, venous blood 26.8 mmol/L 21.0-32.0 potassium, serum 4.2 mmol/L 3.5-5.2 chloride, serum 103 mmol/L 98-107 blood glucose 115 mg/dL 65-110 urea nitrogen, blood 20 mg/dL 7-18 creatinine, serum 0.90 mg/dL 0.55-1.30 alanine aminotransferase (SGPT), serum 38 U/L 12-78 aspartate aminotransferase (SGOT), serum 19 U/L 15-37 calcium, serum 8.6 mg/dL 8.5-10.1 bilirubin, serum, total 0.30 mg/dL 0.00-1.00 sodium, serum 139 mmol/L 164-904 4343/01/11 carbon dioxide, venous blood 26.6 mmol/L 21.0-32.0 potassium, serum 4.1 mmol/L 3.5-5.2 chloride, serum 100 mmol/L 98-107 blood glucose 86 mg/dL 65-110 urea nitrogen, blood 16 mg/dL 7-18 creatinine, serum 1.00 mg/dL 0.55-1.30 alanine aminotransferase (SGPT), serum 48 U/L - aspartate aminotransferase (SGOT), serum 17 U/L 15-37 calcium, serum 9.1 mg/dL 8.5-10.1 bilirubin, serum, total 0.40 mg/dL 0.00-1.00 sodium, serum 142 mmol/L 745-257 8345/06/08 carbon dioxide, venous blood 27.6 mmol/L 21.0-32.0 [...] Rate - Chemistry sodium, serum 139 mmol/L 438-456 0833/12/11 carbon dioxide, venous blood 25.4 mmol/L 21.0-32.0 potassium, serum 3.9 mmol/L 3.5-5.2 chloride, serum 105 mmol/L 98-107 blood glucose 98 mg/dL 65-110 urea nitrogen, blood 18 mg/dL 7-18 creatinine, serum 0.96 mg/dL 0.55-1.30 alanine aminotransferase (SGPT), serum 34 U/L - aspartate aminotransferase (SGOT), serum 12 U/L 15-37 calcium, serum 8.6 mg/dL 8.5-10.1 bilirubin, serum, total 0.20 mg/dL 0.00-1.00 Lab Report: [id number] - Chemistry hemoglobin A1C, blood, as % of total hemoglobin 5.3 % 4.3-6.0 Lab Report: LH/Adult/615, FSH/Adult/470 - Chemistry luteinizing [...] 1.025 1.000-1.030 pH, urine, semiquantitative 5.5 5.0-8.5 Encounters Code Encounter Date Provider Facility CPT-11647 Level 3 Est. Patient 11:25:49 CDT Renzo Thornton DO [facility] CPT-65241 Level 3 Est. Patient 15:22:01 CDT Ahmet Carbajal MD [facility]-00484 Level 4 Est. Patient 09:00:51 HISTORY TEACHER Vishal Hui MD [facility] CPT-75159 Level 3 Est. Patient 11:37:33 HISTORY TEACHER Vishal Hui MD [facility] CPT-04756 Level 3 Est. Patient 08:41:09 HISTORY TEACHER Vishal Hui MD [facility] CPT-24670 Level 4 Est. Patient 10:19:35 HISTORY TEACHER Vishal Hui MD [facility] CPT-30082 Level 3 Est. Patient 13:35:45 CDT Vishal Hui MD [facility] CPT-11758 Level 4 Est. Patient 10:08:37 CDT Vishal Hui MD [facility] CPT-82546 Level 3 Est. Patient 11:22:10 CDT Vishal Hui MD [facility] CPT-07222 Level 3 Est. Patient 11:03:32 CDT Sahara Rodriguez MD [facility]-26655 Level 3 Est. Patient 09:41:35 CDT Vishal Hui MD [facility]-31541 Level 3 Est. Patient 12:00:41 CDT Neeraj Collins MD [facility]-85140 Level 3 Est. Patient 09:16:24 CDT Vishal Hui MD [facility]-54426 Level 4 Est. Patient 13:59:09 CDT Neeraj Collins MD [facility]-46659 Level 3 Est. Patient 15:19:43 CDT Renzo Thornton DO [facility] CPT-94269 Level 3 Est. Patient 18:10:26 CDT Sahara Rodriguez MD [facility]-24836 Level 3 Est. Patient 14:49:50 CDT Vishal Hui MD [facility]-21680 Level 4 Est. Patient 18:41:46 CDT Neeraj Collins MD [facility]-89031 Level 4 Est. Patient 09:18:38 HISTORY TEACHER Vishal Hui MD [facility]-97732 Level 3 Est. Patient 14:43:55 HISTORY TEACHER Vishal Hui MD [facility]-47306 Level 3 Est. Patient 15:26:33 HISTORY TEACHER Sahara Rodriguez MD [facility]-58174 Level 3 Est. Patient 10:32:14 HISTORY TEACHER Vishal Hui MD [facility]-88516 Level 3 Est. Patient 15:12:52 HISTORY TEACHER Vishal Hui MD [facility]-89378 Level 4 Est. Patient 09:19:27 CDT Vishal Hui MD [facility]-73855 Level 3 Est. Patient 15:53:00 CDT Renzo Thornton [facility] CPT-10430 Level 3 Est. Patient 15:50:30 CDT Renzo Thornton [facility] CPT-57739 Level 3 Est. Patient 16:55:24 CDT Vishal Hui MD [facility] Procedures Code Procedure Name Date Entry Date Standard Description CPT-86137 EKG Trac and Interp - XRAY USE ONLY 11:31:43 CDT 08/26 CPT-J3420 Vitamin B12 1000mcg (Cyanocobalamin) 08:10:26 HISTORY TEACHER 04/12 CPT-93651 Abx/Therapy Injection 08:10:26 HISTORY TEACHER CPT-G0438 Initial Annual Wellness Exam 19:01:01 HISTORY TEACHER CPT-J3420 Vitamin B12 1000mcg (Cyanocobalamin) 16:57:46 CDT 08/14 CPT-01399 Recombivax HB Injection Suspension 5 MCG/0.5ML 08:37:50 HISTORY TEACHER CPT-46103 Immunization Single Admin 08:37:50 HISTORY TEACHER CPT-J3420 Vitamin B12 1000mcg (Cyanocobalamin) 08:32:16 HISTORY TEACHER 03/11 CPT-73784 Abx/Therapy Injection 08:32:16 HISTORY TEACHER CPT-70462 Chest 2V Frontal and Lat 11:46:38 HISTORY TEACHER CPT-70043 Venipuncture Draw Fee 09:12:45 HISTORY TEACHER CPT-J3420 Vitamin B12 1000mcg (Cyanocobalamin) 08:50:15 HISTORY TEACHER 02/08 CPT-58887 Abx/Therapy Injection 08:50:15 HISTORY TEACHER CPT-Cryo Cryotherapy 10:19:35 HISTORY TEACHER CPT-000 Give Appropriate Flu Vaccine 09:22:16 CDT CPT-J3420 Vitamin B12 1000mcg (Cyanocobalamin) 19:08:57 CDT 01/11 CPT-51597 Abx/Therapy Injection 19:08:57 CDT CPT-J3420 Vitamin B12 1000mcg (Cyanocobalamin) 08:19:08 CDT 12/11 CPT-13316 Abx/Therapy Injection 08:19:08 CDT CPT-J3420 Vitamin B12 1000mcg (Cyanocobalamin) 14:48:00 CDT 11/09 CPT-19174 Abx/Therapy Injection 14:47:59 CDT CPT-J3420 Vitamin B12 1000mcg (Cyanocobalamin) 08:34:04 CDT 10/09 CPT-61618 Abx/Therapy Injection 08:34:04 CDT CPT-J3420 Vitamin B12 1000mcg (Cyanocobalamin) 09:18:52 CDT 09/11 CPT-93376 Abx/Therapy Injection 09:18:52 CDT CPT-J3420 Vitamin B12 1000mcg (Cyanocobalamin) 08:35:44 CDT 09/04 CPT-92380 Abx/Therapy Injection 08:35:44 CDT CPT-71975 Immunization Single Admin 11:07:16 CDT CPT-50028 Hepatitis B adult IM 11:07:16 CDT CPT-J3420 Vitamin B12 1000mcg (Cyanocobalamin) 11:00:49 CDT 08/28 CPT-J1040 Depo Medrol 80 mg (Methyl Prednisolone Acetate) 11:00: 49 CDT CPT-29762 Abx/Therapy Injection 11:00:49 CDT CPT-J1040 Depo Medrol 80 mg (Methyl Prednisolone Acetate) 09:16: 23 CDT CPT-J3420 Vitamin B12 1000mcg (Cyanocobalamin) 08:27:05 CDT 08/20 CPT-78044 Abx/Therapy Injection 08:27:05 CDT CPT-10815 Recombivax HB Injection Suspension 5 MCG/0.5ML 10:00:41 CDT CPT-50849 Administration single or combination vaccine inc oral 10 :00:41 CDT CPT-06238 Sono transvag pelvis non OB uterus ovaries cervix 16:36: 57 CDT CPT-96098 LS spine comp w obliq 09:50:55 HISTORY TEACHER CPT-97406 Abd compl w upright 09:50:55 HISTORY TEACHER CPT-J1100 Decadron 4mg (Dexamethasone) 15:51:24 HISTORY TEACHER CPT-J1030 Depo Medrol 40 mg (Methyl Prednisolone Acetate) 15:51: 24 HISTORY TEACHER CPT-61146 Abx/Therapy Injection 15:51:24 HISTORY TEACHER CPT-J1100 Decadron 4mg (Dexamethasone) 15:26:33 HISTORY TEACHER CPT-J1030 Depo Medrol 40 mg (Methyl Prednisolone Acetate) 15:26: 33 HISTORY TEACHER CPT-87483 Sono retroperitoneal complete kidneys and bladder 17:15: 30 CDT CPT-88485 Abd compl w upright 16:09:25 CDT CPT-J1100 Decadron 8mg (Dexamethasone) 17:07:57 CDT CPT-72748 Abx/Therapy Injection 17:07:57 CDT CPT-J1100 Decadron 8mg (Dexamethasone) 16:55:24 CDT CPT-57380 Chest 2V Frontal and Lat 16:32:44 CDT
--- OUTSIDE RECORDS SUMMARY | 2016-11-04 10:46 | XMS REPORT | Clinical Summary ---
Author Author Admin, Dereck Organization [facility] Address Unknown Phone Unavailable Allergies, Adverse Reactions, [...] Active Ahmet Carbajal MD Generalized anxiety disorder Striker Off well woman exam V72.31 Active Suzan Boo [...] chronic 723.1 Active Suzan Boo APRN Cervicalgia Anxiety Disorder ICD-300.00 Inactive Vishal Hui MD Pneumonia, organism unspecified ICD-486 Inactive Vishal Hui MD Flank pain, right ICD-789.09 Inactive Vishal Hui MD G E R D ICD-530.81 Inactive Vishal Hui MD Health screening ICD-V70.0 Inactive Suzan Boo SQL ANALYST Sinus tachycardia ICD-427.89 Inactive Suzan Boo SQL ANALYST Smoker/tobacco use disorder-smoking cessation discussed ICD-305.1 Inactive [...] encounter for closed fracture with routine healing Jim Boo APRN Bronchitis, acute ICD-466.0 Inactive Ahmet Carbajal MD Medication List Medication Instructions Start Date Stop Date Generic Name NDC Status Provider Patient Instruction AMITIZA 8 MCG ORAL CAPS 1 tab BID LUBIPROSTONE 74621213241 Active Lynda Madl [employer] MACHINE Active DIFLUCAN 150 MG TABS 1 by mouth for yeast FLUCONAZOLE 70332370826 Active Suzan Boo APRN Active LACTULOSE 10 GM/15ML ORAL SOLN 30mL oral BID for IBS-C LACTULOSE 61753979764 Active Suzan Boo APRN Active BACTRIM DS 800-160 MG TABS 1 twice a day SULFAMETHOXAZOLE- TRIMETHOPRIM 40203574420 Active Lynda Ninoska BHAKTAN Active MUPIROCIN 2 % OINT apply twice a day MUPIROCIN 02731664888 Active Suzan Boo APRN Active TESSALON PERLES 100 MG CAPS 1 three times a day as needed for cough BENZONATATE 84635370651 No Longer Active Suzan Boo APRN Active BACTRIM DS 800-160 MG TABS 1 twice a day SULFAMETHOXAZOLE-TRIMETHOPRIM 53907721146 No Longer Active Suzan Boo APRN Active DIFLUCAN 150 MG TABS 1 by mouth for yeast FLUCONAZOLE 39575470647 No Longer Active Suzan Boo APRN Active EQ NICOTINE 21 MG/24HR TRANS PT24 Apply daily to stop smoking NICOTINE 66105169800 No Longer Active Suzan Boo APRN Active PREDNISONE 10 MG TABS 2 daily for 5 days then 1 daily for 5 days PREDNISONE 65698694736 No Longer Active Suzan Boo APRN Active LEVAQUIN 500 MG TABS 1 daily for infection LEVOFLOXACIN 47229275607 No Longer Active Suzan Boo APRN Active TROPICAMIDE 0.5 % OPHTH SOLN 1 drop PRN eye spasms TROPICAMIDE 66850160057 No Longer Active Suzan Boo APRN Active PREDNISONE 20 MG TAB 1 tablet daily x 4 days PREDNISONE 02908351780 No Longer Active Suzan Boo APRN Active ACETAMINOPHEN-CODEINE 120-12 MG/5ML SOLN 5 ml by mouth every 4-6 hours if needed for cough ACETAMINOPHEN-CODEINE 68501286313 No Longer Active Suzan Boo APRN Active KEFLEX 500 MG CAP 1 po qid CEPHALEXIN 46947516685 No Longer Active Suzan Boo APRN Active FLOVENT HFA 110 MCG/ACT AERO 2 puffs inhaled b.i.d. FLUTICASONE PROPIONATE HFA 78194745714 Active Renzo Thornton DO Active RISPERDAL 4 MG ORAL TABS 1 tab at bedtime RISPERIDONE 74898519894 Active Samantha Rothman RMA Active ZOFRAN 4 MG TABS 1 po q6hr PRN Nausea ONDANSETRON HCL No Longer Active Suzan Boo APRN Active FLUTICASONE PROPIONATE 50 MCG/ACT SUSP 2 sprays each nostril daily before bed. FLUTICASONE PROPIONATE 82590117488 No Longer Active Suzan Boo APRN Active ASPIRIN 325 MG ORAL TABS 1 tab q.d ASPIRIN 02865374535 No Longer Active Suzan Boo APRN Active HALOPERIDOL 10 MG ORAL TABS 1 tab q.d HALOPERIDOL 42453444086 No Longer Active Suzan Boo APRN Active GUAIFENESIN-CODEINE 100-10 MG/5ML SYRP 5ml every 4 to 6 hours as needed for cough GUAIFENESIN-CODEINE 87750454030 No Longer Active Suzan Boo APRN Active ZITHROMAX Z-EARNEST 250 MG TABS 2 today and then 1 daily for 4 days AZITHROMYCIN 69982733129 No Longer Active Suzan Boo APRN Active CLONAZEPAM 1 MG ORAL TABS 1 twice a day and an additional 1 tablet every other day as needed for pseudoseizures or anxiety CLONAZEPAM 65062239097 Active Suzan Boo APRN Active HYDROCODONE-ACETAMINOPHEN 5-325 MG ORAL TABS 1 tab two times a day HYDROCODONE-ACETAMINOPHEN 44537257615 No Longer Active Ahmet Carbajal MD Active LAMICTAL 100 MG ORAL TABS 1 tab 2 times qd. LAMOTRIGINE 58517694883 Active Ahmet Carbajal MD Active PREDNISONE 20 MG TABS 2 daily for 5 days then 1 daily for 5 days PREDNISONE 86726275527 No Longer Active Ahmet Carbajal MD Active FLUTICASONE PROPIONATE 50 MCG/ACT SUSP 1 to 2 sprays each nostril daily for allergies FLUTICASONE PROPIONATE 91131375877 Active Tila Valenzuela Active BENADRYL 25 MG CAP 4 po at bedtime for insomnia DIPHENHYDRAMINE HCL 37916683374 No Longer Active Ahmet Carbajal MD Active ADVAIR DISKUS 250-50 MCG/DOSE INH AEPB 1 puff twice a day for asthma FLUTICASONE-SALMETEROL 78605198096 No Longer Active Ahmet Carbajal MD Active KLONOPIN 1 MG ORAL TABS 1 tab po TID CLONAZEPAM 86337825876 No Longer Active Ahmet Carbajal MD Active ABILIFY MAINTENA 400 MG IM SUSR 400mg injection every 26 days ARIPIPRAZOLE 49315085696 No Longer Active Ahmet Carbajal MD Active TRAMADOL HCL 50 MG TABS 1/2-1 tab TID PRN TRAMADOL HCL 99017470810 No Longer Active Ahmet Carbajal MD Active BACTRIM DS 800-160 MG TABS 1 twice a day SULFAMETHOXAZOLE- TRIMETHOPRIM 64476815097 No Longer Active Ahmet Carbajal MD Active PROAIR HFA 108 (90 BASE) MCG/ACT AERS 2 puffs four times a day as needed 2015 ALBUTEROL SULFATE 85428777595 Active Honey Hinton SQL ANALYST Active MONISTAT 7 COMBO PACK WOODROW 100 & 2 MG-% (9GM) VAG KIT 1 applicatorful per vagina q pm x 7 MICONAZOLE NITRATE 36428055354 No Longer Active Ahmet Carbajal MD Active FLAGYL 500 MG TAB 1 tablet by mouth bid METRONIDAZOLE 19183748798 No Longer Active Ahmet Carbajal MD Active OXYCODONE HCL ER 10 MG ORAL T12A 1/2 tab by mouth every 4 hours prn OXYCODONE HCL 56598887748 No Longer Active Ahmet Carbajal MD Active METHYLPREDNISOLONE 4 MG ORAL TABS po daily METHYLPREDNISOLONE 85640743797 No Longer Active Ahmet Carbajal MD Active LEVOFLOXACIN 500 MG ORAL TABS po daily LEVOFLOXACIN 11245153247 No Longer Active Ahmet Carbajal MD Active VIIBRYD 10 MG ORAL TABS Take 1 tablet once a day VILAZODONE HCL 04901444183 No Longer Active Ahmet Carbajal MD Active TOPAMAX 50 MG ORAL TABS 1 tab twice daily TOPIRAMATE 20128721305 No Longer Active Ahmet Carbajal MD Active DICLOFENAC SODIUM 50 MG TBEC 1 tablet by mouth four times daily PRN Pain 2015 DICLOFENAC SODIUM 07695617495 No Longer Active Ahmet Carbajal MD Active ADZENYS XR-ODT 6.3 MG ORAL TBED 1 tab po daily for ADHD AMPHETAMINE 39672331064 No Longer Active Ahmet Carbajal MD Active CHANTIX 1 MG TABS 1 twice a day to help quit smoking VARENICLINE TARTRATE 12183647270 No Longer Active Dipika Burgos MD Active CHANTIX STARTING MONTH EARNEST 0.5 MG X 11 & 1 MG X 42 TABS take as directed 2015 VARENICLINE TARTRATE 57878718903 No Longer Active Dipika Burgos MD Active TESSALON PERLES 100 MG CAP 1 to 2 tablets by mouth 3 times daily as needed for cough BENZONATATE 95131359143 No Longer Active 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 APRN Active IMITREX 50 MG ORAL TABS 0.5 po x 1 PRN Headache. May repeat dose x 1 in 2 hours if needed SUMATRIPTAN SUCCINATE 06208890738 Active Ahmet Carbajal MD Active HYDROCODONE-ACETAMINOPHEN 5-325 MG TABS 1 to 2 four times a day as needed for pain use until can be seen by specialist HYDROCODONE- ACETAMINOPHEN 94667328855 No Longer Active Vishal Hui MD Active PROAIR HFA 108 (90 BASE) MCG/ACT AERS 2 puffs four times a day as needed 2015 ALBUTEROL SULFATE 94198687895 No Longer Active Vishal Hui MD Active PREDNISONE 20 MG TABS 2 daily for 5 days then 1 daily for 5 days PREDNISONE 91352370150 No Longer Active Vishal Hui MD Active ZITHROMAX Z-EARNEST 250 MG TABS 2 today and then 1 daily for 4 days AZITHROMYCIN 66114324211 No Longer Active Vishal Hui MD Active DICLOFENAC POTASSIUM TABS Take 1 tablet twice a day (pt. is not sure of the dose.) DICLOFENAC POTASSIUM TABS 57086346976 No Longer Active Vishal Hui MD Active VERAPAMIL HCL ER 120 MG ORAL CR-TABS Take 1 tablet by mouth twice a day. VERAPAMIL HCL 59030992488 Active Vishal uHi MD Active FLAGYL 500 MG TAB 1 tablet by mouth bid METRONIDAZOLE 52823840304 No Longer Active Vishal Hui MD Active VALIUM 5 MG TAB Take 1-2 tablets daily DIAZEPAM 28651718719 No Longer Active Fabiola Johnson APRN Active METOPROLOL TARTRATE 25 MG ORAL TABS 1/2 tablet twice daily for heart rate and blood pressure METOPROLOL TARTRATE 08910022194 No Longer Active Fabiola Johnson APRN Active MIRALAX ORAL POWD 17GMS DAILY IN WATER POLYETHYLENE GLYCOL 3350 80356893706 Active TAMARA Casey Active MIRALAX PACK 1 po qd PRN Constipation POLYETHYLENE GLYCOL 3350 88286003734 No Longer Active Ahmet Carbajal MD Active MINIPRESS 2 MG CAPS 4 cap po at night PRAZOSIN HCL 98343666597 No Longer Active Ahmet Carbajal MD Active PIROXICAM 20 MG CAPS 1 cap po qd PRN Pain PIROXICAM 53504169041 No Longer Active Ahmet Carbajal MD Active TRAMADOL HCL 50 MG TABS 1-2 po TID PRN Pain TRAMADOL HCL 57476982017 No Longer Active Ahmet Carbajal MD Active METOPROLOL TARTRATE 50 MG TAB 1 po bid METOPROLOL TARTRATE 16079375971 No Longer Active Ahmet Carbajal MD Active ABILIFY 15 MG ORAL TABS 1 tab daily ARIPIPRAZOLE 24730989119 No Longer Active Ahmet Carbajal MD Active PROZAC 20 MG ORAL CAPS 1 tab daily FLUOXETINE HCL 06712650261 No Longer Active Ahmet Carbajal MD Active AMBIEN 5 MG ORAL TABS 1 tab at bedtime ZOLPIDEM TARTRATE 46219703107 No Longer Active Ahmet Carbajal MD Active PREDNISONE 20 MG TAB 2 tabs daily for 4 days, 1 tab daily for 4 days, 1/2 tab daily for 4 days PREDNISONE 70828264633 No Longer Active Ahmet Carbajal MD Active KEFLEX 500 MG CAP 1 po TID x 10 days CEPHALEXIN 60353589762 No Longer Active Vishal Hui MD Active SAPHRIS 5 MG SUBL 1 po bid ASENAPINE MALEATE 68639219911 No Longer Active Jillina Frazell SQL ANALYST Active LATUDA 80 MG TABS Take one by mouth daily LURASIDONE HCL 24147586851 No Longer Active Jillina Frazell SQL ANALYST Active AMLODIPINE BESYLATE 5 MG TABS 1 tablet by mouth daily AMLODIPINE BESYLATE 54227057525 No Longer Active Jillina Frazell SQL ANALYST Active AMITRIPTYLINE HCL 100 MG TAB one at hs AMITRIPTYLINE HCL 87567722219 No Longer Active Vishal Hui MD Active TRAZODONE HCL 100 MG TAB take 1 at bedtime TRAZODONE HCL 86195959442 No Longer Active Vishal Hui MD Active VYVANSE 40 MG CAPS 1 daily, LISDEXAMFETAMINE DIMESYLATE 81196770653 No Longer Active Vishal Hui MD Active IBUPROFEN 600 MG TAB 1 po TID PRN IBUPROFEN 53679130795 No Longer Active Vishal Hui MD Active PROZAC 20 MG CAP Take one by mouth daily FLUOXETINE HCL 47011277613 No Longer Active Vishal Hui MD Active BACTRIM DS 800-160 MG TABS 1 pill by mouth twice daily SULFAMETHOXAZOLE-TRIMETHOPRIM 60880968046 No Longer Active Sahara Rodriguez MD PhD Active DIFLUCAN 150 MG TAB 1 tablet by mouth daily FLUCONAZOLE 15748541035 No Longer Active Vishal Hui MD Active TIZANIDINE HCL 4 MG TABS 1 po q6hr PRN Muscle Spasm/Back Pain TIZANIDINE HCL 85078468337 Active Vishal Hui MD Active CLINDAMYCIN HCL 150 MG CAPS 1 four times a day CLINDAMYCIN HCL 03938494780 No Longer Active Neeraj Collins MD Active KEFLEX 500 MG ORAL CAPS 1 cap QID by mouth CEPHALEXIN 46921522175 No Longer Active Neeraj Collins MD Active DIFLUCAN 150 MG TABS 1 pill every other day x 2 doses FLUCONAZOLE 18105827940 No Longer Active Sahara Rodriguez MD PhD Active MELATONIN 3 MG CAPS 2 po q hs MELATONIN 98564508830 No Longer Active Sahara Rodriguez MD PhD Active MULTIVITAMINS CAPS Take one by mouth daily MULTIPLE VITAMIN 95257315083 No Longer Active Sahara Rodriguez MD PhD Active BACTRIM DS 800-160 MG TAB 1 tab by mouth twice daily TRIMETHOPRIM-SULFAMETHOXAZOLE 26602667697 No Longer Active Sahara Rodriguez MD PhD Active [facility] PROBIOTIC ORAL CHEW 2 daily po PROBIOTIC PRODUCT 26721799708 No Longer Active Sahara Rodriguez MD PhD Active BACTRIM DS 800-160 MG TABS 1 po BID x 7 days SULFAMETHOXAZOLE-TRIMETHOPRIM 20963339102 No Longer Active Vishal Hui MD Active CHANTIX STARTING MONTH EARNEST 0.5 MG X 11 & 1 MG X 42 TABS 0.5mg daily for 3 days , then 0.5mg BID for 4 days, then 1mg BID VARENICLINE TARTRATE 76302586380 No Longer Active TAMARA Gray Active VERAPAMIL HCL CR 120 MG TAB CR 1 po bid VERAPAMIL HCL 95017971708 No Longer Active Vishal Hui MD Active METOPROLOL SUCCINATE 50 MG TB24 1 tablet by mouth daily METOPROLOL SUCCINATE 66372059407 No Longer Active Vishal Hui MD Active SAPHRIS 10 MG SUBL 1 tab po bid ASENAPINE MALEATE 50271037095 No Longer Active Vishal Hui MD Active LISINOPRIL 20 MG TABS 1 tab po qd LISINOPRIL 28353951960 No Longer Active Vishal Hui MD Active LATUDA 20 MG TABS Take one by mouth daily LURASIDONE HCL 50477021481 No Longer Active Vishal Hui MD Active TRAZODONE HCL 50 MG TABS 1/2 tab po qd prn for anxiety TRAZODONE HCL 06129919441 No Longer Active Vishal Hui MD Active OMEPRAZOLE 20 MG TBEC 1 po q a.m. 30min prior to first food intake OMEPRAZOLE 74028340394 Active TAMARA Casey Active RANITIDINE HCL 150 MG CAPS 1 twice a day RANITIDINE HCL 09488786311 Active 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 APRN Active LINZESS 290 MCG CAPS Take one by mouth daily LINACLOTIDE 04544994719 No Longer Active Vishal Hui MD Active SAPHRIS 5 MG SUBL 1 tab po qd ASENAPINE MALEATE 97695343435 No Longer Active Vishal Hui MD Active ZALEPLON 10 MG CAPS 1 cap po every other night ZALEPLON 17261425221 No Longer Active Vishal Hui MD Active LYRICA 50 MG CAPS 1 tab po TID PREGABALIN 91743199242 No Longer Active Vishal Hui MD Active LORATADINE 10 MG TABS 1 tab po qd LORATADINE 98168978582 No Longer Active Vishal Hui MD Active VERAPAMIL HCL ER 180 MG CR-TABS 1 tab po bid VERAPAMIL HCL 49834442666 No Longer Active Vishal Hui MD Active MIRALAX POWD 1 capfull once daily POLYETHYLENE GLYCOL 3350 01433768575 No Longer Active Vishal Hui MD Active PREDNISONE 20 MG TABS 1 tab po qd PREDNISONE 79283670391 No Longer Active Renzo Thornton DO Active LEVOFLOXACIN 500 MG TABS 1 tab po qd LEVOFLOXACIN 81490759221 No Longer Active Renzo Thornton DO Active BUSPIRONE HCL 15 MG TABS 1 tab po TID BUSPIRONE HCL 31685529239 No Longer Active Renzo Thornton DO Active BENZTROPINE MESYLATE 1 MG TABS 1 tab po qd BENZTROPINE MESYLATE 00607632504 No Longer Active Renzo Thornton DO Active ATENOLOL 25 MG TABS 1 tab po qd ATENOLOL 13623937482 No Longer Active Renzo Thornton DO Active ESCITALOPRAM OXALATE 20 MG TABS 1 tab po qd ESCITALOPRAM OXALATE 93844717740 No Longer Active Renzo Thornton DO Active ADVAIR DISKUS 250-50 MCG/DOSE AEPB 1 puff BID FLUTICASONE-SALMETEROL 69070402616 No Longer Active Renzo Thornton DO Active PREDNISONE 20 MG TAB 2 tabs daily for 3 days, 1 tab daily for 3 days, 1/2 tab daily for 2 days PREDNISONE 65614970993 No Longer Active Vishal Hui MD Active CEFDINIR 300 MG CAPS by mouth twice a day CEFDINIR 60419472114 No Longer Active Vishal Hiu MD Active LANSOPRAZOLE 30 MG CPDR 1 cap po qd LANSOPRAZOLE 72946818051 No Longer Active Vishal Hui MD Active BACLOFEN 20 MG TABS 1 tab po tid BACLOFEN 91019906360 No Longer Active Vishal Hui MD Active ADVAIR DISKUS 250-50 MCG/DOSE AEPB 1 puff BID ADVAIR DISKUS 250-50 MCG/DOSE AEPB FLUTICASONE-SALMETEROL Inactive ESCITALOPRAM OXALATE 20 MG TABS 1 tab po qd ESCITALOPRAM OXALATE 20 MG TABS 411158 ESCITALOPRAM OXALATE Inactive ATENOLOL 25 MG TABS 1 tab po qd ATENOLOL 25 MG TABS 408193 ATENOLOL Inactive BENZTROPINE MESYLATE 1 MG TABS 1 tab po qd BENZTROPINE MESYLATE 1 MG TABS 998850 BENZTROPINE MESYLATE Inactive BUSPIRONE HCL 15 MG TABS 1 tab po TID BUSPIRONE HCL 15 MG TABS 493700 BUSPIRONE HCL Inactive LEVOFLOXACIN 500 MG TABS 1 tab po qd LEVOFLOXACIN 500 MG TABS 599791 LEVOFLOXACIN Inactive PREDNISONE 20 MG TABS 1 tab po qd PREDNISONE 20 MG TABS 120669 PREDNISONE Inactive MIRALAX POWD 1 capfull once daily MIRALAX POWD 328622 POLYETHYLENE GLYCOL 3350 Inactive VERAPAMIL HCL ER 180 MG CR-TABS 1 tab po bid VERAPAMIL HCL ER 180 MG CR-TABS VERAPAMIL HCL Inactive LORATADINE 10 MG TABS 1 tab po qd LORATADINE 10 MG TABS 280070 LORATADINE Inactive LYRICA 50 MG CAPS 1 tab po TID LYRICA 50 MG CAPS PREGABALIN Inactive ZALEPLON 10 MG CAPS 1 cap po every other night ZALEPLON 10 MG CAPS 660433 ZALEPLON Inactive SAPHRIS 5 MG SUBL 1 tab po qd SAPHRIS 5 MG SUBL ASENAPINE MALEATE Inactive TRAZODONE HCL 50 MG TABS 1/2 tab po qd prn for anxiety TRAZODONE HCL 50 MG TABS 176835 TRAZODONE HCL Inactive LATUDA 20 MG TABS Take one by mouth daily LATUDA 20 MG TABS LURASIDONE HCL Inactive LISINOPRIL 20 MG TABS 1 tab po qd LISINOPRIL 20 MG TABS 589000 LISINOPRIL Inactive SAPHRIS 10 MG SUBL 1 [...] twice daily BACTRIM DS 800-160 MG TAB 312223 TRIMETHOPRIM-SULFAMETHOXAZOLE Inactive MULTIVITAMINS CAPS Take one by mouth daily MULTIVITAMINS CAPS MULTIPLE VITAMIN Inactive MELATONIN 3 MG CAPS 2 po q hs MELATONIN 3 MG CAPS 19950526 MELATONIN Inactive KEFLEX 500 MG ORAL CAPS 1 cap QID by mouth KEFLEX 500 MG ORAL CAPS 811576 CEPHALEXIN Inactive CLINDAMYCIN HCL 150 MG CAPS 1 four times a day CLINDAMYCIN HCL 150 MG CAPS 463785 CLINDAMYCIN HCL Inactive DIFLUCAN 150 MG TAB 1 tablet by mouth daily DIFLUCAN 150 MG TAB 676630 FLUCONAZOLE Inactive PROZAC 20 MG CAP Take one by mouth daily PROZAC 20 MG CAP 669778 FLUOXETINE HCL Inactive IBUPROFEN 600 MG TAB 1 po TID PRN IBUPROFEN 600 MG TAB 855616 IBUPROFEN Inactive VYVANSE 40 MG CAPS 1 daily, VYVANSE 40 MG CAPS LISDEXAMFETAMINE DIMESYLATE Inactive TRAZODONE HCL 100 MG TAB take 1 at bedtime TRAZODONE HCL 100 MG TAB 373820 TRAZODONE HCL Inactive AMITRIPTYLINE HCL 100 MG TAB one at hs AMITRIPTYLINE HCL 100 MG TAB 449533 AMITRIPTYLINE HCL Inactive AMLODIPINE BESYLATE 5 MG TABS 1 tablet by mouth daily AMLODIPINE BESYLATE 5 MG TABS 314521 AMLODIPINE BESYLATE Inactive LATUDA 80 MG TABS Take one by mouth daily LATUDA 80 MG TABS LURASIDONE HCL Inactive SAPHRIS 5 MG SUBL 1 po bid SAPHRIS 5 MG SUBL ASENAPINE MALEATE Inactive PREDNISONE 20 MG TAB 2 tabs daily for 4 days, 1 tab daily for 4 days, 1/2 tab daily for 4 days PREDNISONE 20 MG TAB 718435 PREDNISONE Inactive AMBIEN 5 MG ORAL TABS 1 tab at bedtime AMBIEN 5 MG ORAL TABS 497660 ZOLPIDEM TARTRATE Inactive PROZAC 20 MG ORAL CAPS 1 tab daily PROZAC 20 MG ORAL CAPS 017401 FLUOXETINE HCL Inactive ABILIFY 15 MG ORAL TABS 1 tab daily ABILIFY 15 MG ORAL TABS 132945 ARIPIPRAZOLE Inactive METOPROLOL TARTRATE 50 MG TAB 1 po bid METOPROLOL TARTRATE 50 MG TAB 841225 METOPROLOL TARTRATE Inactive TRAMADOL HCL 50 MG TABS 1-2 po TID PRN Pain TRAMADOL HCL 50 MG TABS 487491 TRAMADOL HCL Inactive PIROXICAM 20 MG CAPS 1 cap po qd PRN Pain PIROXICAM 20 MG CAPS 547559 PIROXICAM Inactive MINIPRESS 2 MG CAPS 4 cap po at night MINIPRESS 2 MG CAPS 555668 PRAZOSIN HCL Inactive MIRALAX PACK 1 po qd PRN Constipation MIRALAX PACK 818621 POLYETHYLENE GLYCOL 3350 Inactive METOPROLOL TARTRATE 25 MG ORAL TABS 1/2 tablet twice daily for heart rate and blood pressure METOPROLOL TARTRATE 25 MG ORAL TABS 392458 METOPROLOL TARTRATE Inactive VALIUM 5 MG TAB Take 1-2 tablets daily VALIUM 5 MG TAB 491836 DIAZEPAM Inactive FLAGYL 500 MG TAB 1 tablet by mouth bid FLAGYL 500 MG TAB 836079 METRONIDAZOLE Inactive DICLOFENAC POTASSIUM TABS Take 1 tablet twice a day (pt. is not sure of the dose.) DICLOFENAC POTASSIUM TABS DICLOFENAC POTASSIUM TABS Inactive ZITHROMAX Z-EARNEST 250 MG TABS 2 today and then 1 daily for 4 days ZITHROMAX Z-EARNEST 250 MG TABS 7192279 AZITHROMYCIN Inactive PREDNISONE 20 MG TABS 2 daily for 5 days then 1 daily for 5 days PREDNISONE 20 MG TABS 440780 PREDNISONE Inactive PROAIR HFA 108 (90 BASE) MCG/ACT AERS 2 puffs four times a day as needed 2015 PROAIR HFA 108 (90 BASE) MCG/ACT AERS ALBUTEROL SULFATE Inactive HYDROCODONE-ACETAMINOPHEN 5-325 MG TABS 1 to 2 four times a day as needed for pain use until can be seen by specialist HYDROCODONE- ACETAMINOPHEN 5-325 MG TABS 791785 HYDROCODONE-ACETAMINOPHEN Inactive TESSALON PERLES 100 MG CAP 1 to 2 tablets by mouth 3 times daily as needed for cough TESSALON PERLES 100 MG CAP 314219 BENZONATATE Inactive CHANTIX STARTING MONTH EARNEST 0.5 [...] Pain 2015 DICLOFENAC SODIUM 50 MG TBEC 362531 DICLOFENAC SODIUM Inactive TOPAMAX 50 MG ORAL TABS 1 tab twice daily TOPAMAX 50 MG ORAL TABS 499986 TOPIRAMATE Inactive VIIBRYD 10 MG ORAL TABS Take 1 tablet once a day VIIBRYD 10 MG ORAL TABS VILAZODONE HCL Inactive LEVOFLOXACIN 500 MG ORAL TABS po daily LEVOFLOXACIN 500 MG ORAL TABS 704936 LEVOFLOXACIN Inactive METHYLPREDNISOLONE 4 MG ORAL TABS po daily METHYLPREDNISOLONE 4 MG ORAL TABS 776062 METHYLPREDNISOLONE Inactive OXYCODONE HCL ER 10 MG ORAL T12A 1/2 tab by mouth every 4 hours prn OXYCODONE HCL ER 10 MG ORAL T12A OXYCODONE HCL Inactive FLAGYL 500 MG TAB 1 tablet by mouth bid FLAGYL 500 MG TAB 478210 METRONIDAZOLE Inactive MONISTAT 7 COMBO PACK WOODROW 100 & 2 MG-% (9GM) VAG KIT 1 applicatorful per vagina q pm x 7 MONISTAT 7 COMBO PACK WOODROW 100 & 2 MG-% (9GM) VAG KIT MICONAZOLE NITRATE Inactive BACTRIM DS 800-160 MG TABS 1 twice a day BACTRIM DS 800-160 MG TABS 484952 SULFAMETHOXAZOLE-TRIMETHOPRIM Inactive TRAMADOL HCL 50 MG TABS 1/2-1 tab TID PRN TRAMADOL HCL 50 MG TABS 400694 TRAMADOL HCL Inactive ABILIFY MAINTENA 400 MG IM SUSR 400mg injection every 26 days ABILIFY MAINTENA 400 MG IM SUSR ARIPIPRAZOLE Inactive KLONOPIN 1 MG ORAL TABS 1 tab po TID KLONOPIN 1 MG ORAL TABS 735517 CLONAZEPAM Inactive ADVAIR DISKUS 250-50 MCG/DOSE INH AEPB 1 puff twice a day for asthma ADVAIR DISKUS 250-50 MCG/DOSE INH AEPB FLUTICASONE- SALMETEROL Inactive BENADRYL 25 MG CAP 4 po at bedtime for insomnia BENADRYL 25 MG CAP DIPHENHYDRAMINE HCL Inactive PREDNISONE 20 MG TABS 2 daily for 5 days then 1 daily for 5 days PREDNISONE 20 MG TABS 473353 PREDNISONE Inactive HYDROCODONE-ACETAMINOPHEN 5-325 MG ORAL TABS 1 tab two times a day HYDROCODONE-ACETAMINOPHEN 5-325 MG ORAL TABS 050392 HYDROCODONE-ACETAMINOPHEN Inactive ZITHROMAX Z-EARNEST 250 MG TABS 2 today and then 1 daily for 4 days ZITHROMAX Z-EARNEST 250 MG TABS 7251110 AZITHROMYCIN Inactive GUAIFENESIN-CODEINE 100-10 MG/5ML SYRP 5ml every 4 to 6 hours as needed for cough GUAIFENESIN-CODEINE 100-10 MG/5ML SYRP 528962 GUAIFENESIN-CODEINE Inactive HALOPERIDOL 10 MG ORAL TABS 1 tab q.d HALOPERIDOL 10 MG ORAL TABS 348355 HALOPERIDOL Inactive ASPIRIN 325 MG ORAL TABS 1 tab q.d ASPIRIN 325 MG ORAL TABS 261492 ASPIRIN Inactive FLUTICASONE PROPIONATE 50 MCG/ACT SUSP 2 sprays each nostril daily before bed. FLUTICASONE PROPIONATE 50 MCG/ACT SUSP 1317734 FLUTICASONE PROPIONATE Inactive ZOFRAN 4 MG TABS 1 po q6hr PRN Nausea ZOFRAN 4 MG TABS 636893 ONDANSETRON HCL Inactive KEFLEX 500 MG CAP 1 po qid KEFLEX 500 MG CAP 017263 CEPHALEXIN Inactive ACETAMINOPHEN-CODEINE 120-12 MG/5ML SOLN 5 ml by mouth every 4-6 hours if needed for cough ACETAMINOPHEN-CODEINE 120-12 MG/5ML SOLN 271068 ACETAMINOPHEN-CODEINE Inactive PREDNISONE 20 MG TAB 1 tablet daily x 4 days PREDNISONE 20 MG TAB 093058 PREDNISONE Inactive TROPICAMIDE 0.5 % OPHTH SOLN 1 drop PRN eye spasms TROPICAMIDE 0.5 % OPHTH SOLN 602522 TROPICAMIDE Inactive LEVAQUIN 500 MG TABS 1 daily for infection LEVAQUIN 500 MG TABS 943849 LEVOFLOXACIN Inactive PREDNISONE 10 MG TABS 2 daily for 5 days then 1 daily for 5 days PREDNISONE 10 MG TABS 947448 PREDNISONE Inactive EQ NICOTINE 21 MG/24HR TRANS [...] for cough TESSALON PERLES 100 MG CAPS 19721123 BENZONATATE Inactive CEFDINIR 300 MG CAPS by mouth twice a day CEFDINIR 300 MG CAPS 20020622 CEFDINIR Inactive PREDNISONE 20 MG TAB 2 tabs daily for 3 days, 1 tab daily for 3 days, 1/2 tab daily for 2 days PREDNISONE 20 MG TAB 977116 PREDNISONE Inactive BACTRIM DS 800-160 MG TABS [...] x 10 days KEFLEX 500 MG CAP [id number] CEPHALEXIN Inactive Advance Directives Directive Description Start Date DISCUSSED WITH PATIENT -- NO DECISION MADE Vital Signs Date Name Value Unit Range Description blood pressure, diastolic - 8462-4 87 mm[Hg] [...] % 11.0-15.0 platelet count 443 THOUSAND/UL 10*3/mm3 821-672 2071/03/01 mean platelet volume 8.2 fL 7.5-12.5 leukocyte [...] % 11.0-15.0 platelet count 349 THOUSAND/UL 10*3/mm3 326-583 5868/04/12 mean platelet volume 8.4 fL 7.5-12.5 Lab [...] 369 10^3/MM^3 10*3/mm3 142-424 Lab Report: Chlamydia/GC APTIMA/[id number] - Lab chlamydia DNA probe NOT DETECTED NOT DETECTED Lab Report: Chlamydia/GC APTIMA/[id number] - Microbiology Neisseria gonorrhoeae DNA probe NOT DETECTED NOT DETECTED Lab Report: Chlamydia/GC APTIMA/[id number], Urinalysis, Complete, with Reflex ... - Lab chlamydia DNA probe NOT DETECTED NOT DETECTED Lab Report: Chlamydia/GC APTIMA/[id number], Urinalysis, Complete, with Reflex ... - Microbiology Neisseria gonorrhoeae DNA probe NOT DETECTED NOT DETECTED Lab Report: Chlamydia/GC APTIMA/11599, Urinalysis, Complete, with Reflex ... - Urinalysis microalbumin/total urine volume 2 mg/L Units converted. See lab report for original value. microalbumin/creatinine ratio, urine 9 MCG/MG CREAT mg/L <30 Lab Report: Comp. Metabolic Panel - Chemistry sodium, serum 142 mmol/L 212-741 5980/06/08 carbon dioxide, venous blood 27.6 mmol/L 21.0-32.0 potassium, serum 4.0 mmol/L 3.5-5.2 chloride, serum 105 mmol/L 98-107 blood glucose 95 mg/dL 65-110 urea nitrogen, blood 8 mg/dL 7-18 creatinine, serum 0.75 mg/dL 0.55-1.30 alanine aminotransferase (SGPT), serum 49 U/L -78 aspartate aminotransferase (SGOT), serum 28 U/L 15-37 calcium, serum 9.4 mg/dL 8.5-10.1 bilirubin, serum, total 0.30 mg/dL 0.00-1.00 sodium, serum 140 mmol/L 158-410 9334/08/08 carbon dioxide, venous blood 33.7 mmol/L 21.0-32.0 potassium, serum 5.0 mmol/L 3.5-5.2 chloride, serum 103 mmol/L 98-107 blood glucose 80 mg/dL 65-110 urea nitrogen, blood 13 mg/dL 7-18 creatinine, serum 0.88 mg/dL 0.55-1.30 alanine aminotransferase (SGPT), serum 54 U/L -78 aspartate aminotransferase (SGOT), serum 29 U/L 15-37 calcium, serum 9.7 mg/dL 8.5-10.1 bilirubin, serum, total 0.30 mg/dL 0.00-1.00 Lab Report: HEPATITIS PANEL, ACUTE W/REFLE - Chemistry hepatitis B surface antigen NON-REACTIVE NON-REACTIVE Lab Report: UADIP W/MICRO, AUTO - Chemistry RBC, urine, dipstick Negative Negative RBC, urine, [...] Trace Negative nitrite, urine, semiquantitative Negative Negative Office Visit: Consult for Painful Lipoma - Basic LDL target level 100 mg/dL Office Visit: Consult for Painful Lipoma - Chemistry cholesterol, target level 200 mg/dL triglyceride, target level 200 mg/dL HDL cholesterol, serum, target level 35 mg/dL Encounters Code Encounter Date Provider Facility CPT-05240 Level 4 Est. Patient 10:49:34 CDT Suzan Boo [facility] CPT-22911 Level 3 Est. Patient 10:00:25 CDT Suzan Boo [facility] CPT-87022 Level 3 Est. Patient 10:29:30 CDT Suzan Boo [facility] CPT-14379 Level 3 Est. Patient 11:04:38 CDT Renzo Thornton [facility] CPT-05574 Level 3 Est. Patient 11:15:58 CT TECHNOLOGIST Renzo Thornton [facility] CPT-03502 Level 3 Est. Patient 15:28:23 CT TECHNOLOGIST Suzan Boo [facility] CPT-90620 Level 4 Est. Patient 10:20:54 CT TECHNOLOGIST Suzan Boo [facility]-18258 Level 3 Est. Patient 11:47:37 CT TECHNOLOGIST Ahmet Carbajal MD [facility]-28364 Level 3 Est. Patient 10:40:11 CT TECHNOLOGIST Ahmet Carbajal MD [facility] CPT-54670 Level 3 Est. Patient 15:07:06 CT TECHNOLOGIST Neeraj Collins MD [facility] CPT-94896 Level 4 Est. Patient 14:45:00 CT TECHNOLOGIST Ahmet Carbajal MD [facility]-60455 Level 3 Est. Patient 13:59:59 CDT 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 [facility] CPT-79502 Level 3 Est. Patient 18:18:53 CDT Neeraj Collins MD [facility] CPT-40736 Level 3 Est. Patient 15:50:44 CDT Vishal Hui MD [facility]-64784 Level 3 Est. Patient 11:36:17 CDT Ahmet Carbajal MD [facility]-03705 Level 3 Est. Patient 13:29:16 CDT Vishal Hui MD [facility] CPT-28186 Level 3 Est. Patient 14:27:52 CDT Neeraj Collins MD [facility] CPT-49383 Level 3 Est. Patient 08:56:03 CDT 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 [facility] CPT-95581 Level 4 Est. Patient 12:11:48 CDT Fabiola Johnson [facility] CPT-54104 Level 3 New Patient 16:53:37 CDT Albert Caldera MD [facility] CPT-10722 Level 3 Est. Patient 11:25:49 CDT Renzo Thornton DO [facility] CPT-06281 Level 3 Est. Patient 15:22:01 CDT Ahmet Carbajal MD [facility]-15415 Level 4 Est. Patient 09:00:51 CT TECHNOLOGIST Vishal Hui MD [facility] CPT-38147 Level 3 Est. Patient 11:37:33 CT TECHNOLOGIST Visahl Hui MD [facility] CPT-13530 Level 3 Est. Patient 08:41:09 CT TECHNOLOGIST Vishal Hui MD [facility] CPT-44920 Level 4 Est. Patient 10:19:35 CT TECHNOLOGIST Vishal Hui MD [facility] CPT-95417 Level 3 Est. Patient 13:35:45 CDT Vishal Hui MD [facility] CPT-95397 Level 4 Est. Patient 10:08:37 CDT Vishal Hui MD [facility] CPT-14881 Level 3 Est. Patient 11:22:10 CDT Vishal Hui MD [facility] CPT-92330 Level 3 Est. Patient 11:03:32 CDT Sahara Rodriguez MD PhD [facility] CPT-94418 Level 3 Est. Patient 09:41:35 CDT Vishal Hui MD [facility] CPT-36926 Level 3 Est. Patient 12:00:41 CDT Neeraj Collins MD [facility] CPT-03574 Level 3 Est. Patient 09:16:24 CDT Vishal Hui MD [facility] CPT-18486 Level 4 Est. Patient 13:59:09 CDT Neeraj Collins MD [facility] CPT-40112 Level 3 Est. Patient 15:19:43 CDT Renzo Thornton [facility] CPT-49729 Level 3 Est. Patient 18:10:26 CDT Sahara Rodriguez MD PhD [facility] CPT-69566 Level 3 Est. Patient 14:49:50 CDT Vishal Hui MD [facility] CPT-39297 Level 4 Est. Patient 18:41:46 CDT Neeraj Collins MD [facility] CPT-05347 Level 4 Est. Patient 09:18:38 CT TECHNOLOGIST Vishal Hui MD [facility] CPT-79113 Level 3 Est. Patient 14:43:55 CT TECHNOLOGIST Vishal Hui MD [facility] CPT-20185 Level 3 Est. Patient 15:26:33 CT TECHNOLOGIST Sahara Rodriguez MD PhD [facility] CPT-90277 Level 3 Est. Patient 10:32:14 CT TECHNOLOGIST Vishal Hui MD [facility] CPT-72482 Level 3 Est. Patient 15:12:52 CT TECHNOLOGIST Vishal Hui MD [facility] CPT-49680 Level 4 Est. Patient 09:19:27 CDT Vishal Hui MD [facility] CPT-82970 Level 3 Est. Patient 15:53:00 CDT Renzo Thornton [facility] CPT-76245 Level 3 Est. Patient 15:50:30 CDT Renzo Thornton [facility] CPT-31704 Level 3 Est. Patient 16:55:24 CDT Vishal Hui MD [facility] Procedures Code Procedure Name Date Entry Date Standard Description CPT-71905 Venipuncture Draw Fee 08:41:12 CDT CPT-39634 Abd compl w upright - XRAY USE ONLY 10:27:59 CDT 06/28 CPT-58302 Smoking Cessation counseling 11:15:58 CT TECHNOLOGIST CPT-G0439 Subsequent Annual Wellness Exam 09:30:58 CT TECHNOLOGIST CPT-05195 TSH - LAB USE ONLY 08:50:26 CT TECHNOLOGIST CPT-78410 CBC - LAB USE ONLY 08:50:26 CT TECHNOLOGIST CPT-66989 Venipuncture Draw Fee 08:50:26 CT TECHNOLOGIST CPT-24906 Abx/Therapy Injection 17:34:30 CT TECHNOLOGIST CPT-05429 Nexplanon Removal with Reinsertion 14:09:32 CDT CPT-J7307 Nexplanon (Implant) 14:09:32 CDT CPT-OV Office Visit 14:09:32 CDT CPT-85525 UA w micro - LAB USE ONLY 16:21:13 CDT CPT-85052 Wet Mount - LAB USE ONLY 16:21:13 CDT CPT-27486 First Vx - Ix admin for Medicare patients 14:37:47 CDT CPT-59122 Fluzone Preservative Free Intramuscular Suspension 14:37 :47 CDT CPT-38178 Abx/Therapy Injection 13:54:22 CDT CPT-62671 Abx/Therapy Injection 08:47:09 CDT CPT-70270 Abx/Therapy Injection 13:29:56 CDT CPT-04926 Abx/Therapy Injection 08:36:16 CDT CPT-53714 Wet Mount - LAB USE ONLY 17:44:58 CDT CPT-06455 UA w micro - LAB USE ONLY 17:44:58 CDT CPT-27274 CMP - LAB USE ONLY 17:44:58 CDT CPT-75824 Venipuncture Draw Fee 17:44:58 CDT CPT-33618 Cervical Min 4V - XRAY USE ONLY 09:01:40 CDT CPT-09717 Chest 2V Frontal and Lat - XRAY USE ONLY 11:06:31 CDT CPT-73798 EKG Trac and Interp - XRAY USE ONLY 11:31:43 CDT 08/26 CPT-J3420 Vitamin B12 1000mcg (Cyanocobalamin) 08:10:26 CT TECHNOLOGIST 04/12 CPT-71620 Abx/Therapy Injection 08:10:26 CT TECHNOLOGIST CPT-G0438 Initial Annual Wellness Exam 19:01:01 CT TECHNOLOGIST CPT-J3420 Vitamin B12 1000mcg (Cyanocobalamin) 16:57:46 CDT 08/14 CPT-44923 Recombivax HB Injection Suspension 5 MCG/0.5ML 08:37:50 CT TECHNOLOGIST CPT-52662 Immunization Single Admin 08:37:50 CT TECHNOLOGIST CPT-J3420 Vitamin B12 1000mcg (Cyanocobalamin) 08:32:16 CT TECHNOLOGIST 03/11 CPT-54868 Abx/Therapy Injection 08:32:16 CT TECHNOLOGIST CPT-69350 Chest 2V Frontal and Lat 11:46:38 CT TECHNOLOGIST CPT-71804 Venipuncture Draw Fee 09:12:45 CT TECHNOLOGIST CPT-J3420 Vitamin B12 1000mcg (Cyanocobalamin) 08:50:15 CT TECHNOLOGIST 02/08 CPT-64866 Abx/Therapy Injection 08:50:15 CT TECHNOLOGIST CPT-Cryo Cryotherapy 10:19:35 CT TECHNOLOGIST CPT-000 Give Appropriate Flu Vaccine 09:22:16 CDT CPT-J3420 Vitamin B12 1000mcg (Cyanocobalamin) 19:08:57 CDT 01/11 CPT-12804 Abx/Therapy Injection 19:08:57 CDT CPT-J3420 Vitamin B12 1000mcg (Cyanocobalamin) 08:19:08 CDT 12/11 CPT-49376 Abx/Therapy Injection 08:19:08 CDT CPT-J3420 Vitamin B12 1000mcg (Cyanocobalamin) 14:48:00 CDT 11/09 CPT-43976 Abx/Therapy Injection 14:47:59 CDT CPT-J3420 Vitamin B12 1000mcg (Cyanocobalamin) 08:34:04 CDT 10/09 CPT-32534 Abx/Therapy Injection 08:34:04 CDT CPT-J3420 Vitamin B12 1000mcg (Cyanocobalamin) 09:18:52 CDT 09/11 CPT-51783 Abx/Therapy Injection 09:18:52 CDT CPT-J3420 Vitamin B12 1000mcg (Cyanocobalamin) 08:35:44 CDT 09/04 CPT-34873 Abx/Therapy Injection 08:35:44 CDT CPT-89399 Immunization Single Admin 11:07:16 CDT CPT-00268 Hepatitis B adult IM 11:07:16 CDT CPT-J3420 Vitamin B12 1000mcg (Cyanocobalamin) 11:00:49 CDT 08/28 CPT-J1040 Depo Medrol 80 mg (Methyl Prednisolone Acetate) 11:00: 49 CDT CPT-98424 Abx/Therapy Injection 11:00:49 CDT CPT-J1040 Depo Medrol 80 mg (Methyl Prednisolone Acetate) 09:16: 23 CDT CPT-J3420 Vitamin B12 1000mcg (Cyanocobalamin) 08:27:05 CDT 08/20 CPT-37643 Abx/Therapy Injection 08:27:05 CDT CPT-54726 Recombivax HB Injection Suspension 5 MCG/0.5ML 10:00:41 CDT CPT-42236 Administration single or combination vaccine inc oral 10 :00:41 CDT CPT-79768 Sono transvag pelvis non OB uterus ovaries cervix 16:36: 57 CDT CPT-65157 LS spine comp w obliq 09:50:55 CT TECHNOLOGIST CPT-50118 Abd compl w upright 09:50:55 CT TECHNOLOGIST CPT-J1100 Decadron 4mg (Dexamethasone) 15:51:24 CT TECHNOLOGIST CPT-J1030 Depo Medrol 40 mg (Methyl Prednisolone Acetate) 15:51: 24 CT TECHNOLOGIST CPT-82282 Abx/Therapy Injection 15:51:[address] TECHNOLOGIST CPT-J1100 Decadron 4mg (Dexamethasone) 15:26:33 CT TECHNOLOGIST CPT-J1030 Depo Medrol 40 mg (Methyl Prednisolone Acetate) 15:26: 33 CT TECHNOLOGIST CPT-62151 Sono retroperitoneal complete kidneys and bladder 17:15: 30 CDT CPT-46747 Abd compl w upright 16:09:25 CDT CPT-J1100 Decadron 8mg (Dexamethasone) 17:07:57 CDT CPT-94145 Abx/Therapy Injection 17:07:57 CDT CPT-J1100 Decadron 8mg (Dexamethasone) 16:55:24 CDT CPT-58951 Chest 2V Frontal and Lat 16:32:44 CDT
[2016-11-04] MEDS ORDERED: ATOM25CA5 PO (10:48)
[2016-11-04] MEDS ORDERED: METF500T8 PO (10:48)
--- OUTSIDE RECORDS SUMMARY | 2016-11-04 10:48 | XMS REPORT | Clinical Summary ---
Author Author Admin, Dereck Organization [facility] [employer] Address Unknown Phone Unavailable Allergies, Adverse Reactions, [...] sites Morbid obesity 278.01 Active Juliet Kimbrough LUMBER CHECKER Morbid obesity 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 Active Juliet Kimbrough LUMBER CHECKER Dependence on other enabling machines and devices [...] Shortness of breath 786.05 Active Fabiola Johnson LUMBER CHECKER Shortness of breath Nocturnal hypoxia 799.02 Active Fabiola Johnson LUMBER CHECKER Hypoxemia Neck pain 723.1 Active Jilljanee Martínez LUMBER CHECKER Cervicalgia Vaginal discharge 623.5 Active Neeraj Collins MD Leukorrhea, not specified as infective Abdominal pain, right lower quadrant 789.03 Active Neeraj Collins MD Abdominal pain, right lower quadrant Anxiety Disorder ICD-300.00 Inactive Vishal Hui MD [...] ICD-041.12 Inactive Vishal Hui MD Fatigue ICD-780.79 Jim Hui MD 2014 Vaginitis, candidal ICD-112.1 Inactive Vishal Hui MD Other abnormal blood chemistry ICD-790.6 Jim Hui MD Boils, recurrent ICD-680.9 Inactive Vishal Hui MD Postconcussion syndrome ICD-310.2 Jmi Hui MD Nevus, 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 Jim Hui MD Encounter for removal of sutures ICD-V58.32 Jim Hui MD Hot flashes ICD-627.2 Jim Hui MD Personality change ICD-301.9 Jim Hui MD Leukocytosis ICD-288.60 Jim Hui MD UTI ICD-599.0 Jim Hui MD Headache, atypical ICD-784.0 Jim Caldera MD Elevated blood glucose ICD-790.29 Jim Hui MD Gait unsteady ICD-781.2 Jim Caldera MD Lipoma ICD-214.9 Inactive Albert Caldera MD Abdominal pain, RUQ ICD-789.01 Inactive Albert Caldera MD Chest pain, acute ICD-786.50 Inactive Albert Caldera MD Medication List Medication Instructions Start Date Stop Date Generic Name NDC Status Provider Patient Instruction FLAGYL 500 MG TAB 1 tablet by mouth bid METRONIDAZOLE 79334952035 Active Olimpia Raida Active FLUTICASONE PROPIONATE 50 MCG/ACT SUSP 2 sprays each nostril daily before bed. FLUTICASONE PROPIONATE 78850740164 Active Fabiola Johnson APRN Active VERAPAMIL HCL ER 120 MG ORAL CR-TABS 1 tab po daily for blood pressure 09/27 VERAPAMIL HCL 67461424936 Active Fabiola Johnson APRN Active ADZENYS XR-ODT 6.3 MG ORAL TBED 1 tab po daily for ADHD AMPHETAMINE 99615972919 Active Fabiola Johnson APRN Active BENADRYL 25 MG CAP 4 po at bedtime for insomnia DIPHENHYDRAMINE HCL 80129918363 Active Fabiola Johnson APRN Active KLONOPIN 1 MG ORAL TABS 1 tab po TID CLONAZEPAM 02288395478 Active Fabiola Johnson APRN Active VALIUM 5 MG TAB Take 1-2 tablets daily DIAZEPAM 12286212121 No Longer Active Fabiola Johnson APRN Active METOPROLOL TARTRATE 25 MG ORAL TABS 1/2 tablet twice daily for heart rate and blood pressure METOPROLOL TARTRATE 44218193941 No Longer Active Fabiola Johnson APRN Active MIRALAX ORAL POWD 17GMS DAILY IN WATER POLYETHYLENE GLYCOL 3350 21204930451 Active Vishal Hui MD Active VIIBRYD 10 MG ORAL TABS Take 1 tablet once a day VILAZODONE HCL 86790616439 Active Ahmet Carbajal MD Active DICLOFENAC POTASSIUM TABS Take 1 tablet twice a day (pt. is not sure of the dose.) DICLOFENAC POTASSIUM TABS 71007801300 Active Ahmet Carbajal MD Active MIRALAX PACK 1 po qd PRN Constipation POLYETHYLENE GLYCOL 3350 91439180531 No Longer Active Ahmet Carbajal MD Active MINIPRESS 2 MG CAPS 4 cap po at night PRAZOSIN HCL 95171995300 No Longer Active Ahmet Carbajal MD Active PIROXICAM 20 MG CAPS 1 cap po qd PRN Pain PIROXICAM 90635360818 No Longer Active Ahmet Carbajal MD Active TRAMADOL HCL 50 MG TABS 1-2 po TID PRN Pain TRAMADOL HCL 98965597077 No Longer Active Ahmet Carbajal MD Active METOPROLOL TARTRATE 50 MG TAB 1 po bid METOPROLOL TARTRATE 07196904952 No Longer Active Ahmet Carbajal MD Active ABILIFY 15 MG ORAL TABS 1 tab daily ARIPIPRAZOLE 23934741778 No Longer Active Ahmet Carbajal MD Active PROZAC 20 MG ORAL CAPS 1 tab daily FLUOXETINE HCL 59679999333 No Longer Active Ahmet Carbajal MD Active AMBIEN 5 MG ORAL TABS 1 tab at bedtime ZOLPIDEM TARTRATE 03024054316 No Longer Active Ahmet Carbajal MD Active PREDNISONE 20 MG TAB 2 tabs daily for 4 days, 1 tab daily for 4 days, 1/2 tab daily for 4 days PREDNISONE 35969685550 No Longer Active Ahmet Carbajal MD Active KEFLEX 500 MG CAP 1 po TID x 10 days CEPHALEXIN 62483085994 No Longer Active Vishal Hui MD Active ABILIFY MAINTENA 400 MG IM SUSR Injection once per month ARIPIPRAZOLE 10377518614 Active Juliet Kimbrough APRN Active IMITREX 50 MG ORAL TABS 1/2 tab every 6 hours prn SUMATRIPTAN SUCCINATE 34915709457 Active 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 APRN Active TOPAMAX 50 MG ORAL TABS 1 tab twice daily TOPIRAMATE 05541329850 Active Vishal Hui MD Active SAPHRIS 5 MG SUBL 1 po bid ASENAPINE MALEATE 48119767328 No Longer Active 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 APRN Active LATUDA 80 MG TABS Take one by mouth daily LURASIDONE HCL 43155712921 No Longer Active 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 APRN Active AMLODIPINE BESYLATE 5 MG TABS 1 tablet by mouth daily AMLODIPINE BESYLATE 76241543449 No Longer Active 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 APRN Active AMITRIPTYLINE HCL 100 MG TAB one at hs AMITRIPTYLINE HCL 39680509841 No Longer Active Vishal Hui MD Active TRAZODONE HCL 100 MG TAB take 1 at bedtime TRAZODONE HCL 64093064592 No Longer Active Vishal Hui MD Active VYVANSE 40 MG CAPS 1 daily, LISDEXAMFETAMINE DIMESYLATE 80536887072 No Longer Active Vishal Hui MD Active IBUPROFEN 600 MG TAB 1 po TID PRN IBUPROFEN 61694380474 No Longer Active Vishal Hui MD Active PROZAC 20 MG CAP Take one by mouth daily FLUOXETINE HCL 03972326712 No Longer Active Vishal Hui MD Active ZOFRAN 4 MG TABS 1 po q6hr PRN Nausea ONDANSETRON HCL Active Vishal Hui MD Active BACTRIM DS 800-160 MG TABS 1 pill by mouth twice daily SULFAMETHOXAZOLE-TRIMETHOPRIM 89943419311 No Longer Active Sahara Rodriguez MD PhD Active DIFLUCAN 150 MG TAB 1 tablet by mouth daily FLUCONAZOLE 89160803919 No Longer Active Vishal Hui MD Active TIZANIDINE HCL 4 MG TABS 1 po q6hr PRN Muscle Spasm/Back Pain TIZANIDINE HCL 66922501250 Active Vishal Hui MD Active CLINDAMYCIN HCL 150 MG CAPS 1 four times a day CLINDAMYCIN HCL 06796768608 No Longer Active Neerja Collins MD Active KEFLEX 500 MG ORAL CAPS 1 cap QID by mouth CEPHALEXIN 28952905290 No Longer Active Neeraj Collins MD Active DIFLUCAN 150 MG TABS 1 pill every other day x 2 doses FLUCONAZOLE 60726288042 No Longer Active Sahara Rodriguez MD PhD Active MELATONIN 3 MG CAPS 2 po q hs MELATONIN 08670798498 No Longer Active Sahara Rodriguez MD PhD Active MULTIVITAMINS CAPS Take one by mouth daily MULTIPLE VITAMIN 14634001195 No Longer Active Sahara Rodriguez MD PhD Active BACTRIM DS 800-160 MG TAB 1 tab by mouth twice daily TRIMETHOPRIM-SULFAMETHOXAZOLE 20280081642 No Longer Active Sahara Rodriguez MD PhD Active [facility] PROBIOTIC ORAL CHEW 2 daily po PROBIOTIC PRODUCT 73525317573 No Longer Active Sahara Rodriguez MD PhD Active BACTRIM DS 800-160 MG TABS 1 po BID x 7 days SULFAMETHOXAZOLE-TRIMETHOPRIM 81479839035 No Longer Active Vishal Hui MD Active CHANTIX STARTING MONTH EARNEST 0.5 MG X 11 & 1 MG X 42 TABS 0.5mg daily for 3 days , then 0.5mg BID for 4 days, then 1mg BID VARENICLINE TARTRATE 12608854027 No Longer Active TAMARA Gray Active VERAPAMIL HCL CR 120 MG TAB CR 1 po bid VERAPAMIL HCL 32777375492 No Longer Active Vishal Hui MD Active METOPROLOL SUCCINATE 50 MG TB24 1 tablet by mouth daily METOPROLOL SUCCINATE 03360222311 No Longer Active Vishal Hui MD Active SAPHRIS 10 MG SUBL 1 tab po bid ASENAPINE MALEATE 70976880413 No Longer Active Vishal Hui MD Active LISINOPRIL 20 MG TABS 1 tab po qd LISINOPRIL 11739746312 No Longer Active Vishal Hui MD Active LATUDA 20 MG TABS Take one by mouth daily LURASIDONE HCL 38256720373 No Longer Active Vishal Hui MD Active TRAZODONE HCL 50 MG TABS 1/2 tab po qd prn for anxiety TRAZODONE HCL 08971895269 No Longer Active Vishal Hui MD Active OMEPRAZOLE 20 MG TBEC 1 po q a.m. 30min prior to first food intake OMEPRAZOLE 24694429264 Active Vishal Hui MD Active RANITIDINE HCL 150 MG CAPS 1 twice a day RANITIDINE HCL 35317397058 Active Jillina Messizelephraim WALTERSN Active LINZESS 290 MCG CAPS Take one by mouth daily LINACLOTIDE 02492643696 No Longer Active Vishal Hui MD Active SAPHRIS 5 MG SUBL 1 tab po qd ASENAPINE MALEATE 39775043831 No Longer Active Vishal Hui MD Active ZALEPLON 10 MG CAPS 1 cap po every other night ZALEPLON 38963237948 No Longer Active Vishal Hui MD Active LYRICA 50 MG CAPS 1 tab po TID PREGABALIN 84206460937 No Longer Active Vishal Hui MD Active LORATADINE 10 MG TABS 1 tab po qd LORATADINE 86381199153 No Longer Active Vishal Hui MD Active VERAPAMIL HCL ER 180 MG CR-TABS 1 tab po bid VERAPAMIL HCL 46969554389 No Longer Active Vishal Hui MD Active MIRALAX POWD 1 capfull once daily POLYETHYLENE GLYCOL 3350 72272671215 No Longer Active Vishal Hui MD Active PREDNISONE 20 MG TABS 1 tab po qd PREDNISONE 04245453295 No Longer Active Renzo Thornton DO Active LEVOFLOXACIN 500 MG TABS 1 tab po qd LEVOFLOXACIN 90605300291 No Longer Active Renzo Thornton DO Active BUSPIRONE HCL 15 MG TABS 1 tab po TID BUSPIRONE HCL 65407791169 No Longer Active Renzo Thornton DO Active BENZTROPINE MESYLATE 1 MG TABS 1 tab po qd BENZTROPINE MESYLATE 73656169282 No Longer Active Renzo Thornton DO Active ATENOLOL 25 MG TABS 1 tab po qd ATENOLOL 03805031598 No Longer Active Renzo Thornton DO Active ESCITALOPRAM OXALATE 20 MG TABS 1 tab po qd ESCITALOPRAM OXALATE 75885864846 No Longer Active Renzo Thornton DO Active ADVAIR DISKUS 250-50 MCG/DOSE AEPB 1 puff BID FLUTICASONE-SALMETEROL 80302972509 No Longer Active Renzo Thornton DO Active PREDNISONE 20 MG TAB 2 tabs daily for 3 days, 1 tab daily for 3 days, 1/2 tab daily for 2 days PREDNISONE 16385727201 No Longer Active Vishal Hui MD Active CEFDINIR 300 MG CAPS by mouth twice a day CEFDINIR 73585403075 No Longer Active Vishal Hui MD Active LANSOPRAZOLE 30 MG CPDR 1 cap po qd LANSOPRAZOLE 48879033118 No Longer Active Vishal Hui MD Active BACLOFEN 20 MG TABS 1 tab po tid BACLOFEN 82659513678 No Longer Active Vishal Hui MD Active ADVAIR DISKUS 250-50 MCG/DOSE AEPB 1 puff BID ADVAIR DISKUS 250-50 MCG/DOSE AEPB FLUTICASONE-SALMETEROL Inactive ESCITALOPRAM OXALATE 20 MG TABS 1 tab po qd ESCITALOPRAM OXALATE 20 MG TABS 511385 ESCITALOPRAM OXALATE Inactive ATENOLOL 25 MG TABS 1 tab po qd ATENOLOL 25 MG TABS 644421 ATENOLOL Inactive BENZTROPINE MESYLATE 1 MG TABS 1 tab po qd BENZTROPINE MESYLATE 1 MG TABS 901987 BENZTROPINE MESYLATE Inactive BUSPIRONE HCL 15 MG TABS 1 tab po TID BUSPIRONE HCL 15 MG TABS 377150 BUSPIRONE HCL Inactive LEVOFLOXACIN 500 MG TABS 1 tab po qd LEVOFLOXACIN 500 MG TABS 215775 LEVOFLOXACIN Inactive PREDNISONE 20 MG TABS 1 tab po qd PREDNISONE 20 MG TABS 686411 PREDNISONE Inactive MIRALAX POWD 1 capfull once daily MIRALAX POWD 133971 POLYETHYLENE GLYCOL 3350 Inactive VERAPAMIL HCL ER 180 MG CR-TABS 1 tab po bid VERAPAMIL HCL ER 180 MG CR-TABS VERAPAMIL HCL Inactive LORATADINE 10 MG TABS 1 tab po qd LORATADINE 10 MG TABS 948796 LORATADINE Inactive LYRICA 50 MG CAPS 1 tab po TID LYRICA 50 MG CAPS PREGABALIN Inactive ZALEPLON 10 MG CAPS 1 cap po every other night ZALEPLON 10 MG CAPS 494426 ZALEPLON Inactive SAPHRIS 5 MG SUBL 1 tab po qd SAPHRIS 5 MG SUBL ASENAPINE MALEATE Inactive TRAZODONE HCL 50 MG TABS 1/2 tab po qd prn for anxiety TRAZODONE HCL 50 MG TABS 742661 TRAZODONE HCL Inactive LATUDA 20 MG TABS Take one by mouth daily LATUDA 20 MG TABS LURASIDONE HCL Inactive LISINOPRIL 20 MG TABS 1 tab po qd LISINOPRIL 20 MG TABS 941191 LISINOPRIL Inactive SAPHRIS 10 MG SUBL 1 [...] twice daily BACTRIM DS 800-160 MG TAB 873038 TRIMETHOPRIM-SULFAMETHOXAZOLE Inactive MULTIVITAMINS CAPS Take one by mouth daily MULTIVITAMINS CAPS MULTIPLE VITAMIN Inactive MELATONIN 3 MG CAPS 2 po q hs MELATONIN 3 MG CAPS 490945 MELATONIN Inactive KEFLEX 500 MG ORAL CAPS 1 cap QID by mouth KEFLEX 500 MG ORAL CAPS 474997 CEPHALEXIN Inactive CLINDAMYCIN HCL 150 MG CAPS 1 four times a day CLINDAMYCIN HCL 150 MG CAPS 922751 CLINDAMYCIN HCL Inactive DIFLUCAN 150 MG TAB 1 tablet by mouth daily DIFLUCAN 150 MG TAB 678333 FLUCONAZOLE Inactive PROZAC 20 MG CAP Take one by mouth daily PROZAC 20 MG CAP 659760 FLUOXETINE HCL Inactive IBUPROFEN 600 MG TAB 1 po TID PRN IBUPROFEN 600 MG TAB 848326 IBUPROFEN Inactive VYVANSE 40 MG CAPS 1 daily, VYVANSE 40 MG CAPS LISDEXAMFETAMINE DIMESYLATE Inactive TRAZODONE HCL 100 MG TAB take 1 at bedtime TRAZODONE HCL 100 MG TAB 699456 TRAZODONE HCL Inactive AMITRIPTYLINE HCL 100 MG TAB one at hs AMITRIPTYLINE HCL 100 MG TAB 446617 AMITRIPTYLINE HCL Inactive AMLODIPINE BESYLATE 5 MG TABS 1 tablet by mouth daily AMLODIPINE BESYLATE 5 MG TABS 737569 AMLODIPINE BESYLATE Inactive LATUDA 80 MG TABS Take one by mouth daily LATUDA 80 MG TABS LURASIDONE HCL Inactive SAPHRIS 5 MG SUBL 1 po bid SAPHRIS 5 MG SUBL ASENAPINE MALEATE Inactive PREDNISONE 20 MG TAB 2 tabs daily for 4 days, 1 tab daily for 4 days, 1/2 tab daily for 4 days PREDNISONE 20 MG TAB 178313 PREDNISONE Inactive AMBIEN 5 MG ORAL TABS 1 tab at bedtime AMBIEN 5 MG ORAL TABS 663065 ZOLPIDEM TARTRATE Inactive PROZAC 20 MG ORAL CAPS 1 tab daily PROZAC 20 MG ORAL CAPS 256755 FLUOXETINE HCL Inactive ABILIFY 15 MG ORAL TABS 1 tab daily ABILIFY 15 MG ORAL TABS 298180 ARIPIPRAZOLE Inactive METOPROLOL TARTRATE 50 MG TAB 1 po bid METOPROLOL TARTRATE 50 MG TAB 819034 METOPROLOL TARTRATE Inactive TRAMADOL HCL 50 MG TABS 1-2 po TID PRN Pain TRAMADOL HCL 50 MG TABS 574963 TRAMADOL HCL Inactive PIROXICAM 20 MG CAPS 1 cap po qd PRN Pain PIROXICAM 20 MG CAPS 824321 PIROXICAM Inactive MINIPRESS 2 MG CAPS 4 cap po at night MINIPRESS 2 MG CAPS 779528 PRAZOSIN HCL Inactive MIRALAX PACK 1 po qd PRN Constipation MIRALAX PACK 955373 POLYETHYLENE GLYCOL 3350 Inactive METOPROLOL TARTRATE 25 MG ORAL TABS 1/2 tablet twice daily for heart rate and blood pressure METOPROLOL TARTRATE 25 MG ORAL TABS 711311 METOPROLOL TARTRATE Inactive VALIUM 5 MG TAB Take 1-2 tablets daily VALIUM 5 MG TAB 716911 DIAZEPAM Inactive CEFDINIR 300 MG CAPS by mouth twice a day CEFDINIR 300 MG CAPS 20020622 CEFDINIR Inactive PREDNISONE 20 MG TAB 2 tabs daily for 3 days, 1 tab daily for 3 days, 1/2 tab daily for 2 days PREDNISONE 20 MG TAB 922441 PREDNISONE Inactive BACTRIM DS 800-160 MG TABS 1 po BID x 7 days BACTRIM DS 800-160 MG TABS 19820521 SULFAMETHOXAZOLE-TRIMETHOPRIM Inactive DIFLUCAN 150 MG TABS 1 pill every other day x 2 doses DIFLUCAN 150 MG TABS 606480 FLUCONAZOLE Inactive BACTRIM DS 800-160 MG TABS 1 pill by mouth twice daily BACTRIM DS 800-160 MG TABS 19820521 SULFAMETHOXAZOLE-TRIMETHOPRIM Inactive KEFLEX 500 MG CAP 1 po TID x 10 days KEFLEX 500 MG CAP 557573 CEPHALEXIN Inactive Advance Directives Directive Description Start Date DISCUSSED WITH PATIENT -- NO DECISION MADE Vital Signs Date Name Value Unit Range Description blood pressure, diastolic - 8462-4 86 mm[Hg] [...] E&M - 3141-9 277 [lb_av] Weight Measured Diagnostic Results Date Name [...] % 11.6-14.8 platelet count 394 10^3/MM^3 10*3/mm3 389-071 6990/01/11 leukocyte count, blood 13.8 10^3/MM^3 10*3/mm3 4.6-10.2 [...] Panel - Chemistry sodium, serum 139 mmol/L 109-432 4691/12/03 carbon dioxide, venous blood 28.5 mmol/L 21.0-32.0 [...] 5.5 % 4.3-6.0 cholesterol, serum 159 mg/dL 418-276 2405/12/03 triglyceride, serum, fasting 118 mg/dL 30-200 HDL cholesterol, serum 45 mg/dL 32-96 LDL cholesterol, serum 90 mg/dL 0-130 Lab Report: CBC W/DIFF, Comp. Metabolic Panel, HGBA1C, Lipid Panel - Hematology monocytes as percent of blood leukocytes 8.0 % 1.7-9.3 neutrophils as percent of blood leukocytes 62.7 % 42.2-75.2 leukocyte count, blood 12.5 10^3/MM^3 10*3/mm3 4.6-10.2 lymphocytes as percent of blood leukocytes 26.7 [...] Panel - Chemistry sodium, serum 139 mmol/L 227-028 9183/12/22 carbon dioxide, venous blood 26.8 mmol/L 21.0-32.0 potassium, serum 4.2 mmol/L 3.5-5.2 chloride, serum 103 mmol/L 98-107 blood glucose 115 mg/dL 65-110 urea nitrogen, blood 20 mg/dL 7-18 creatinine, serum 0.90 mg/dL 0.55-1.30 alanine aminotransferase (SGPT), serum 38 U/L aspartate aminotransferase (SGOT), serum 19 U/L 15-37 calcium, serum 8.6 mg/dL 8.5-10.1 bilirubin, serum, total 0.30 mg/dL 0.00-1.00 sodium, serum 139 mmol/L 186-587 5376/01/11 carbon dioxide, venous blood 26.6 mmol/L 21.0-32.0 potassium, serum 4.1 mmol/L 3.5-5.2 chloride, serum 100 mmol/L 98-107 blood glucose 86 mg/dL 65-110 urea nitrogen, blood 16 mg/dL 7-18 creatinine, serum 1.00 mg/dL 0.55-1.30 alanine aminotransferase (SGPT), serum 48 U/L -78 aspartate aminotransferase (SGOT), serum 17 U/L 15-37 calcium, serum 9.1 mg/dL 8.5-10.1 bilirubin, serum, total 0.40 mg/dL 0.00-1.00 sodium, serum 142 mmol/L 059-122 2834/06/08 carbon dioxide, venous blood 27.6 mmol/L 21.0-32.0 potassium, serum 4.0 mmol/L 3.5-5.2 chloride, serum 105 mmol/L 98-107 blood glucose 95 mg/dL 65-110 urea nitrogen, blood 8 mg/dL 7-18 creatinine, serum 0.75 mg/dL 0.55-1.30 alanine aminotransferase (SGPT), serum 49 U/L -78 aspartate aminotransferase (SGOT), serum 28 U/L 15-37 calcium, serum 9.4 mg/dL 8.5-10.1 bilirubin, serum, total 0.30 mg/dL 0.00-1.00 sodium, serum 140 mmol/L 760-138 1249/08/08 carbon dioxide, venous blood 33.7 mmol/L 21.0-32.0 potassium, serum 5.0 mmol/L 3.5-5.2 chloride, serum 103 mmol/L 98-107 blood glucose 80 mg/dL 65-110 urea nitrogen, blood 13 mg/dL 7-18 creatinine, serum 0.88 mg/dL 0.55-1.30 alanine aminotransferase (SGPT), serum 54 U/L 78 aspartate aminotransferase (SGOT), serum 29 U/L 15-37 calcium, serum 9.7 mg/dL 8.5-10.1 bilirubin, serum, total 0.30 mg/dL 0.00-1.00 Lab Report: Comp. Metabolic Panel, Erythrocyte Sed Rate - Chemistry carbon dioxide, venous blood 25.4 mmol/L 21.0-32.0 potassium, serum 3.9 mmol/L 3.5-5.2 chloride, serum 105 mmol/L 98-107 blood glucose 98 mg/dL 65-110 urea nitrogen, blood 18 mg/dL 7-18 sodium, serum 139 mmol/L 051-805 4820/12/11 creatinine, serum 0.96 mg/dL 0.55-1.30 alanine aminotransferase [...] mg/dL Negative RBC, urine, dipstick 1+ Negative Lab Report: UADIP W/MICRO, AUTO - [...] Negative Negative nitrite, urine, semiquantitative Negative Negative bilirubin, urine Negative Negative urine color Yellow Colorless;Lightyellow;Straw;Yellow appearance, urine SlCloudy Clear specific gravity, urine >=1.030 1.000-1.030 pH, urine, semiquantitative 5.5 5.0-8.5 glucose, urine, semiquantitative Negative Negative ketones, urine, by test strip Negative Negative glucose, urine, semiquantitative Negative Negative appearance, urine Clear [...] 1.025 1.000-1.030 pH, urine, semiquantitative 6.0 5.0-8.5 Office Visit: Consult for Painful Lipoma - Chemistry cholesterol, target level 200 mg/dL triglyceride, target level 200 mg/dL HDL cholesterol, serum, target level 35 mg/dL LDL target level 100 mg/dL Encounters Code Encounter Date Provider Facility CPT-92172 Level 3 Est. Patient 14:27:52 CDT Neeraj Collins MD [facility] CPT-47012 Level 3 Est. Patient 08:56:03 CDT 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 [facility] CPT-34107 Level 4 Est. Patient 12:11:48 CDT Fabiola Johnson [facility] CPT-93613 Level 3 New Patient 16:53:37 CDT Albert Caldera MD [facility] CPT-65178 Level 3 Est. Patient 11:25:49 CDT Renzo Thornton DO [facility] CPT-40081 Level 3 Est. Patient 15:22:01 CDT Ahmet Carbajal MD [facility] CPT-66469 Level 4 Est. Patient 09:00:51 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 Vishal Hui MD [facility] CPT-18068 Level 3 Est. Patient 11:37:33 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 Vishal Hui MD [facility] CPT-87766 Level 3 Est. Patient 08:41:09 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 Vishal Hui MD [facility] CPT-88091 Level 4 Est. Patient 10:19:35 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 Vishal Hui MD [facility] CPT-07572 Level 3 Est. Patient 13:35:45 CDT Vishal Hui MD [facility] CPT-47952 Level 4 Est. Patient 10:08:37 CDT Vishal Hui MD [facility] CPT-36430 Level 3 Est. Patient 11:22:10 CDT Vishal Hui MD [facility] CPT-82959 Level 3 Est. Patient 11:03:32 CDT Sahara Rodriguez MD PhD [facility]-56860 Level 3 Est. Patient 09:41:35 CDT Vishal Hui MD [facility] CPT-01288 Level 3 Est. Patient 12:00:41 CDT Neeraj Collins MD [facility] CPT-66567 Level 3 Est. Patient 09:16:24 CDT Vishal Hui MD [facility] CPT-45334 Level 4 Est. Patient 13:59:09 CDT Neeraj Collins MD [facility] CPT-17567 Level 3 Est. Patient 15:19:43 CDT Renzo Thornton DO [facility] CPT-85765 Level 3 Est. Patient 18:10:26 CDT Sahara Rodriguez MD [facility]-88855 Level 3 Est. Patient 14:49:50 CDT Vishal Hui MD [facility] CPT-79978 Level 4 Est. Patient 18:41:46 CDT Neeraj Collins MD [facility] CPT-91592 Level 4 Est. Patient 09:18:38 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 Vishal Hui MD [facility]-45515 Level 3 Est. Patient 14:43:55 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 Vishal Hui MD [facility] CPT-39568 Level 3 Est. Patient 15:26:33 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 Sahara Rodriguez MD PhD [facility] CPT-40693 Level 3 Est. Patient 10:32:14 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 Vishal Hui MD [facility] CPT-50946 Level 3 Est. Patient 15:12:52 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 Vishal Hui MD [facility]-15454 Level 4 Est. Patient 09:19:27 CDT Vishal Hui MD [facility] CPT-44262 Level 3 Est. Patient 15:53:00 CDT Renzo W Norberto [facility] CPT-39933 Level 3 Est. Patient 15:50:30 CDT Renzo Thornton [facility] CPT-64497 Level 3 Est. Patient 16:55:24 CDT Vishal Hui MD [facility] Procedures Code Procedure Name Date Entry Date Standard Description CPT-88784 Wet Mount - LAB USE ONLY 17:44:58 CDT CPT-35542 UA w micro - LAB USE ONLY 17:44:58 CDT CPT-01086 CMP - LAB USE ONLY 17:44:58 CDT CPT-11291 Venipuncture Draw Fee 17:44:58 CDT CPT-28929 Cervical Min 4V - XRAY USE ONLY 09:01:40 CDT CPT-14689 Chest 2V Frontal and Lat - XRAY USE ONLY 11:06:31 CDT CPT-20329 EKG Trac and Interp - XRAY USE ONLY 11:31:43 CDT 08/26 CPT-J3420 Vitamin B12 1000mcg (Cyanocobalamin) 08:10:26 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 04/12 CPT-50098 Abx/Therapy Injection 08:10:26 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 CPT-G0438 Initial Annual Wellness Exam 19:01:01 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 CPT-J3420 Vitamin B12 1000mcg (Cyanocobalamin) 16:57:46 CDT 08/14 CPT-53055 Recombivax HB Injection Suspension 5 MCG/0.5ML 08:37:50 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 CPT-12157 Immunization Single Admin 08:37:50 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 CPT-J3420 Vitamin B12 1000mcg (Cyanocobalamin) 08:32:16 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 03/11 CPT-92536 Abx/Therapy Injection 08:32:16 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 CPT-54526 Chest 2V Frontal and Lat 11:46:38 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 CPT-48783 Venipuncture Draw Fee 09:12:45 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 CPT-J3420 Vitamin B12 1000mcg (Cyanocobalamin) 08:50:15 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 02/08 CPT-48332 Abx/Therapy Injection 08:50:15 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 CPT-Cryo Cryotherapy 10:19:35 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 CPT-000 Give Appropriate Flu Vaccine 09:22:16 CDT CPT-J3420 Vitamin B12 1000mcg (Cyanocobalamin) 19:08:57 CDT 01/11 CPT-00574 Abx/Therapy Injection 19:08:57 CDT CPT-J3420 Vitamin B12 1000mcg (Cyanocobalamin) 08:19:08 CDT 12/11 CPT-20779 Abx/Therapy Injection 08:19:08 CDT CPT-J3420 Vitamin B12 1000mcg (Cyanocobalamin) 14:48:00 CDT 11/09 CPT-89509 Abx/Therapy Injection 14:47:59 CDT CPT-J3420 Vitamin B12 1000mcg (Cyanocobalamin) 08:34:04 CDT 10/09 CPT-78624 Abx/Therapy Injection 08:34:04 CDT CPT-J3420 Vitamin B12 1000mcg (Cyanocobalamin) 09:18:52 CDT 09/11 CPT-65706 Abx/Therapy Injection 09:18:52 CDT CPT-J3420 Vitamin B12 1000mcg (Cyanocobalamin) 08:35:44 CDT 09/04 CPT-07012 Abx/Therapy Injection 08:35:44 CDT CPT-27930 Immunization Single Admin 11:07:16 CDT CPT-25424 Hepatitis B adult IM 11:07:16 CDT CPT-J3420 Vitamin B12 1000mcg (Cyanocobalamin) 11:00:49 CDT 08/28 CPT-J1040 Depo Medrol 80 mg (Methyl Prednisolone Acetate) 11:00: 49 CDT CPT-57064 Abx/Therapy Injection 11:00:49 CDT CPT-J1040 Depo Medrol 80 mg (Methyl Prednisolone Acetate) 09:16: 23 CDT CPT-J3420 Vitamin B12 1000mcg (Cyanocobalamin) 08:27:05 CDT 08/20 CPT-70104 Abx/Therapy Injection 08:27:05 CDT CPT-71673 Recombivax HB Injection Suspension 5 MCG/0.5ML 10:00:41 CDT CPT-77511 Administration single or combination vaccine inc oral 10 :00:41 CDT CPT-50741 Sono transvag pelvis non OB uterus ovaries cervix 16:36: 57 CDT CPT-86139 LS spine comp w obliq 09:50:55 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 CPT-92614 Abd compl w upright 09:50:55 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 CPT-J1100 Decadron 4mg (Dexamethasone) 15:51:24 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 CPT-J1030 Depo Medrol 40 mg (Methyl Prednisolone Acetate) 15:51: 24 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 CPT-12851 Abx/Therapy Injection 15:51:24 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
--- OUTSIDE RECORDS SUMMARY | 2016-11-04 10:52 | XMS REPORT | Clinical Summary ---
Author Author Admin, [facility] Organization [facility] [employer] Address Unknown Phone Unavailable Allergies, Adverse Reactions, [...] Schizoaffective disorder, unspecified Irritable bowel syndrome 564.1 Inactive Vishal Hui MD Irritable bowel syndrome Irritable bowel syndrome with constipation 564.1 Active Suzan Boo APRN Irritable bowel syndrome Low back pain, chronic [...] unspecified sites Physical examination V70.0 Resolved Vishal uHi MD Routine general medical examination at a [...] Active Ahmet Carbajal MD Generalized anxiety disorder Emergency Operator well woman exam V72.31 Resolved Suzan Boo APRN Routine gynecological examination Bronchitis, acute with mild bronchospasm 466.0 Resolved Suzan Boo APRN Acute bronchitis Fibrocystic breast changes 610.1 Active Suzan oBo APRN Diffuse cystic 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 Suzan Boo APRN Other specified conditions influencing health status Tracheitis 464.10 Resolved Suzan Boo APRN Acute tracheitis without mention of obstruction Impetigo 684 Resolved Suzan Boo APRN Impetigo Furuncle of buttock 680.5 Resolved Suzan Boo APRN Carbuncle and furuncle of buttock Vaginal irritation 623.9 Resolved Suzan Boo APRN Unspecified noninflammatory disorder of vagina Scalding pain on urination 788.1 Resolved Suzan Boo APRN Dysuria Abdominal pain, right upper quadrant 789.01 Resolved Suzan Boo APRN Abdominal pain, right upper quadrant Dark urine 791.9 Resolved Suzan Boo APRN Other nonspecific findings on examination of urine Neck pain, chronic 723.1 Active Suzan Boo APRN Cervicalgia Preop exam V72.84 Resolved Suzan Boo APRN Preoperative examination, unspecified 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 Suzan Boo APRN Candidiasis of skin and nails Hypoglycemia 251.2 Active Suzan Boo APRN Hypoglycemia, unspecified Migraine headaches 346.90 Active Suzan Boo APRN Migraine, unspecified, without mention of intractable migraine, without mention of status migrainosus Flank pain 789.09 Active Suzan Boo APRN Abdominal pain, other specified site; multiple sites Dysuria 788.1 Active Suzan Boo APRN Dysuria Anxiety Disorder ICD-300.00 Inactive Vsihal Hui MD Pneumonia, organism unspecified ICD-486 Inactive [...] Inactive Vishal Hui MD Headache, atypical ICD-784.0 Jim Caldera [...] Vishal Hui MD Vaginal discharge ICD-623.5 Inactive Vihsal Hui MD Abdominal pain, right lower quadrant [...] Boo APRN DYSURIA ICD-788.1 Inactive Suzan Boo INVESTIGATOR OPERATOR Cellulitis and abscess of breast ICD-611.0 Inactive hAmet Carbajal MD Nondisplaced transverse fracture of shaft of left fibula, subsequent encounter for closed fracture with routine healing Inactive Suzan Boo APRN Bronchitis, acute ICD-466.0 Inactive Ahmet Carbajal MD Emergency Operator well woman exam ICD-V72.31 Inactive Suzan Boo INVESTIGATOR OPERATOR Bronchitis, acute with mild bronchospasm ICD-466.0 Inactive Suzan Boo APRN Tracheitis ICD-464.10 Inactive Suzan Boo APRN Impetigo ICD-684 Inactive Suzan Boo INVESTIGATOR OPERATOR Furuncle of buttock ICD-680.5 Inactive Suzan Boo APRN Vaginal irritation ICD-623.9 Inactive Suzan Boo APRN Scalding pain on urination ICD-788.1 Inactive Suzan Boo APRN Abdominal pain, right upper quadrant ICD-789.01 Inactive Suzan Boo APRN Dark urine ICD-791.9 Inactive Suzan Boo APRN Preop exam ICD-V72.84 Inactive Suzan Boo APRN Medication List Medication Instructions Start Date Stop Date Generic Name NDC Status Provider Patient Instruction MUPIROCIN 2 % OINT apply twice a day MUPIROCIN 48875304750 Active Suzan Boo APRN Active BACTRIM DS 800-160 MG TABS 1 twice a day SULFAMETHOXAZOLE- TRIMETHOPRIM 91319127843 Active Suzan Boo APRN Active NPGUYNIEDV-[id number]-UDZVDEYS 50-325-40 MG TABS 1 to 2 four times a day as needed for headache [id number] 66607339195 Active Suzan Boo APRN Active METOCLOPRAMIDE HCL 10 MG TABS 1 two times as needed for nausea and headaches METOCLOPRAMIDE HCL 57106742049 Active Meena Ortiz MA Active NYSTATIN 549373 UNIT/GM CREA apply three times a day to yeast rash NYSTATIN 07488967753 Active Suzan Boo APRN Active AMITIZA 24 MCG ORAL CAPS one capsule twice daily LUBIPROSTONE 82180541968 Active Suzan Boo APRN Active MIRALAX ORAL POWD 17GMS DAILY IN WATER POLYETHYLENE GLYCOL 3350 63694814755 No Longer Active Suzan Boo APRN Active LACTULOSE 10 GM/15ML ORAL SOLN 30mL oral BID for IBS-C LACTULOSE 78064802371 No Longer Active Suzan Boo APRN Active BACTRIM DS 800-160 MG TAB Take one (1) tablet by mouth twice a day for 5 days TRIMETHOPRIM-SULFAMETHOXAZOLE 15866036942 No Longer Active Suzan Boo APRN Active MUPIROCIN 2 % OINT apply twice a day MUPIROCIN 02259502963 No Longer Active Suzan Boo APRN Active BACTRIM DS 800-160 MG TABS 1 twice a day SULFAMETHOXAZOLE-TRIMETHOPRIM 86312796692 No Longer Active Suzan Boo APRN Active DIFLUCAN 150 MG TABS 1 by mouth for yeast FLUCONAZOLE 75200572040 No Longer Active Suzan Boo APRN Active LINZESS 290 MCG ORAL CAPS 1 tab 30 min prior to first meal each day. LINACLOTIDE 74836641379 No Longer Active Sheila Calderon LPN Active AMITIZA 8 MCG ORAL CAPS 1 tab BID LUBIPROSTONE 83485753736 No Longer Active Lynda Ninoska BHAKTAN Active TESSALON PERLES 100 MG CAPS 1 three times a day as needed for cough BENZONATATE 29995658498 No Longer Active Suzan Boo APRN Active BACTRIM DS 800-160 MG TABS 1 twice a day SULFAMETHOXAZOLE-TRIMETHOPRIM 96250194717 No Longer Active Suzan Boo APRN Active DIFLUCAN 150 MG TABS 1 by mouth for yeast FLUCONAZOLE 25353231246 No Longer Active Suzan Boo APRN Active EQ NICOTINE 21 MG/24HR TRANS PT24 Apply daily to stop smoking NICOTINE 89337156686 No Longer Active Suzan Boo APRN Active PREDNISONE 10 MG TABS 2 daily for 5 days then 1 daily for 5 days PREDNISONE 29284479093 No Longer Active Suzan Boo APRN Active LEVAQUIN 500 MG TABS 1 daily for infection LEVOFLOXACIN 10451544343 No Longer Active Suzan Boo APRN Active TROPICAMIDE 0.5 % OPHTH SOLN 1 drop PRN eye spasms TROPICAMIDE 35705889664 No Longer Active Suzan Boo APRN Active PREDNISONE 20 MG TAB 1 tablet daily x 4 days PREDNISONE 20995118914 No Longer Active Suzan Boo APRN Active ACETAMINOPHEN-CODEINE 120-12 MG/5ML SOLN 5 ml by mouth every 4-6 hours if needed for cough ACETAMINOPHEN-CODEINE 40022679094 No Longer Active Suzan Boo APRN Active KEFLEX 500 MG CAP 1 po qid CEPHALEXIN 60304029426 No Longer Active Suzan Boo APRN Active FLOVENT HFA 110 MCG/ACT AERO 2 puffs inhaled b.i.d. FLUTICASONE PROPIONATE HFA 14033470607 Active Renzo Thornton Active RISPERDAL 4 MG ORAL TABS 1 tab at bedtime RISPERIDONE 24398732235 Active Samantha Rothman RMA Active ZOFRAN 4 MG TABS 1 po q6hr PRN Nausea ONDANSETRON HCL No Longer Active Suzan Boo APRN Active FLUTICASONE PROPIONATE 50 MCG/ACT SUSP 2 sprays each nostril daily before bed. FLUTICASONE PROPIONATE 37611471843 No Longer Active Suzan Boo APRN Active ASPIRIN 325 MG ORAL TABS 1 tab q.d ASPIRIN 55227986719 No Longer Active Suzan Boo APRN Active HALOPERIDOL 10 MG ORAL TABS 1 tab q.d HALOPERIDOL 90003670423 No Longer Active Suzan Boo APRN Active GUAIFENESIN-CODEINE 100-10 MG/5ML SYRP 5ml every 4 to 6 hours as needed for cough GUAIFENESIN-CODEINE 23067442030 No Longer Active Suzan Boo APRN Active ZITHROMAX Z-EARNEST 250 MG TABS 2 today and then 1 daily for 4 days AZITHROMYCIN 50808293416 No Longer Active Suzan Boo APRN Active CLONAZEPAM 1 MG ORAL TABS 1 twice a day and an additional 1 tablet every other day as needed for pseudoseizures or anxiety CLONAZEPAM 96649405487 Active Suzan Boo APRN Active HYDROCODONE-ACETAMINOPHEN 5-325 MG ORAL TABS 1 tab two times a day HYDROCODONE-ACETAMINOPHEN 25943027146 No Longer Active Ahmet Carbajal MD Active LAMICTAL 100 MG ORAL TABS 1 tab 2 times qd. LAMOTRIGINE 45165537579 Active Ahmet Carbajal MD Active PREDNISONE 20 MG TABS 2 daily for 5 days then 1 daily for 5 days PREDNISONE 26078853427 No Longer Active Ahmet Carbajal MD Active FLUTICASONE PROPIONATE 50 MCG/ACT SUSP 1 to 2 sprays each nostril daily for allergies FLUTICASONE PROPIONATE 73420769575 Active Tila Nicolas Active BENADRYL 25 MG CAP 4 po at bedtime for insomnia DIPHENHYDRAMINE HCL 60951088709 No Longer Active Ahmet Carbajal MD Active ADVAIR DISKUS 250-50 MCG/DOSE INH AEPB 1 puff twice a day for asthma FLUTICASONE-SALMETEROL 80495572233 No Longer Active Ahmet Carbajal MD Active KLONOPIN 1 MG ORAL TABS 1 tab po TID CLONAZEPAM 12530526816 No Longer Active Ahmet Carbajal MD Active ABILIFY MAINTENA 400 MG IM SUSR 400mg injection every 26 days ARIPIPRAZOLE 30525090069 No Longer Active Ahmet Carbajal MD Active TRAMADOL HCL 50 MG TABS 1/2-1 tab TID PRN TRAMADOL HCL 70061635695 No Longer Active Ahmet Carbajal MD Active BACTRIM DS 800-160 MG TABS 1 twice a day SULFAMETHOXAZOLE- TRIMETHOPRIM 98483533143 No Longer Active Ahmet Carbajal MD Active PROAIR HFA 108 (90 BASE) MCG/ACT AERS 2 puffs four times a day as needed 2015 ALBUTEROL SULFATE 06845053080 Active Honey Hinton INVESTIGATOR OPERATOR Active MONISTAT 7 COMBO PACK WOODROW 100 & 2 MG-% (9GM) VAG KIT 1 applicatorful per vagina q pm x 7 MICONAZOLE NITRATE 79390921849 No Longer Active Ahmet Carbajal MD Active FLAGYL 500 MG TAB 1 tablet by mouth bid METRONIDAZOLE 88370537059 No Longer Active Ahmet Carbajal MD Active OXYCODONE HCL ER 10 MG ORAL T12A 1/2 tab by mouth every 4 hours prn OXYCODONE HCL 28456567304 No Longer Active Ahmet Carbajal MD Active METHYLPREDNISOLONE 4 MG ORAL TABS po daily METHYLPREDNISOLONE 99819489386 No Longer Active Ahmet Carbajal MD Active LEVOFLOXACIN 500 MG ORAL TABS po daily LEVOFLOXACIN 37595499500 No Longer Active Ahmet Carbajal MD Active VIIBRYD 10 MG ORAL TABS Take 1 tablet once a day VILAZODONE HCL 08691393079 No Longer Active Ahmet Carbajal MD Active TOPAMAX 50 MG ORAL TABS 1 tab twice daily TOPIRAMATE 06412264135 No Longer Active Ahmet Carbajal MD Active DICLOFENAC SODIUM 50 MG TBEC 1 tablet by mouth four times daily PRN Pain 2015 DICLOFENAC SODIUM 49745745330 No Longer Active Ahmet Carbajal MD Active ADZENYS XR-ODT 6.3 MG ORAL TBED 1 tab po daily for ADHD AMPHETAMINE 79741540904 No Longer Active Ahmet Carbajal MD Active CHANTIX 1 MG TABS 1 twice a day to help quit smoking VARENICLINE TARTRATE 92303638089 No Longer Active Dipika Burgos MD Active CHANTIX STARTING MONTH EARNEST 0.5 MG X 11 & 1 MG X 42 TABS take as directed 2015 VARENICLINE TARTRATE 92781482626 No Longer Active Dipika Burgos MD Active TESSALON PERLES 100 MG CAP 1 to 2 tablets by mouth 3 times daily as needed for cough BENZONATATE 74376739269 No Longer Active uLigi Martínez APRN Active IMITREX 50 MG ORAL TABS 0.5 po x 1 PRN Headache. May repeat dose x 1 in 2 hours if needed SUMATRIPTAN SUCCINATE 24376541356 Active TAMARA Casey Active HYDROCODONE-ACETAMINOPHEN 5-325 MG TABS 1 to 2 four times a day as needed for pain use until can be seen by specialist HYDROCODONE- ACETAMINOPHEN 52179201871 No Longer Active Vishal Hui MD Active PROAIR HFA 108 (90 BASE) MCG/ACT AERS 2 puffs four times a day as needed 2015 ALBUTEROL SULFATE 26258469527 No Longer Active Vishal Hui MD Active PREDNISONE 20 MG TABS 2 daily for 5 days then 1 daily for 5 days PREDNISONE 35675989765 No Longer Active Vishal Hui MD Active ZITHROMAX Z-EARNEST 250 MG TABS 2 today and then 1 daily for 4 days AZITHROMYCIN 72568020525 No Longer Active Vishal Hui MD Active DICLOFENAC POTASSIUM TABS Take 1 tablet twice a day (pt. is not sure of the dose.) DICLOFENAC POTASSIUM TABS 37452513338 No Longer Active Vishal Hui MD Active VERAPAMIL HCL ER 120 MG ORAL CR-TABS Take 1 tablet by mouth twice a day. VERAPAMIL HCL 46073417705 Active Vishal Hui MD Active FLAGYL 500 MG TAB 1 tablet by mouth bid METRONIDAZOLE 59445944628 No Longer Active Vishal Hui MD Active VALIUM 5 MG TAB Take 1-2 tablets daily DIAZEPAM 34462256074 No Longer Active Fabiola Johnson APRN Active METOPROLOL TARTRATE 25 MG ORAL TABS 1/2 tablet twice daily for heart rate and blood pressure METOPROLOL TARTRATE 79321706674 No Longer Active Fabiola Johnson APRN Active MIRALAX PACK 1 po qd PRN Constipation POLYETHYLENE GLYCOL 3350 01867665379 No Longer Active Ahmet Carbajal MD Active MINIPRESS 2 MG CAPS 4 cap po at night PRAZOSIN HCL 93175985534 No Longer Active Ahmet Carbajal MD Active PIROXICAM 20 MG CAPS 1 cap po qd PRN Pain PIROXICAM 58583503358 No Longer Active Ahmet Carbajal MD Active TRAMADOL HCL 50 MG TABS 1-2 po TID PRN Pain TRAMADOL HCL 85768109184 No Longer Active Ahmet Carbajal MD Active METOPROLOL TARTRATE 50 MG TAB 1 po bid METOPROLOL TARTRATE 28063852437 No Longer Active Ahmet Carbajal MD Active ABILIFY 15 MG ORAL TABS 1 tab daily ARIPIPRAZOLE 36469906039 No Longer Active Ahmet Carbajal MD Active PROZAC 20 MG ORAL CAPS 1 tab daily FLUOXETINE HCL 45627994034 No Longer Active Ahmet Carbajal MD Active AMBIEN 5 MG ORAL TABS 1 tab at bedtime ZOLPIDEM TARTRATE 32817305490 No Longer Active Ahmet Carbajal MD Active PREDNISONE 20 MG TAB 2 tabs daily for 4 days, 1 tab daily for 4 days, 1/2 tab daily for 4 days PREDNISONE 93011714642 No Longer Active Ahmet Carbajal MD Active KEFLEX 500 MG CAP 1 po TID x 10 days CEPHALEXIN 58115093307 No Longer Active Vishal Hui MD Active SAPHRIS 5 MG SUBL 1 po bid ASENAPINE MALEATE 19875666135 No Longer Active Jillina Mauricio NORIEGA Active LATUDA 80 MG TABS Take one by mouth daily LURASIDONE HCL 14333736180 No Longer Active Jillina Fradwightl INVESTIGATOR OPERATOR Active AMLODIPINE BESYLATE 5 MG TABS 1 tablet by mouth daily AMLODIPINE BESYLATE 54278035133 No Longer Active Jillina Fradwightl INVESTIGATOR OPERATOR Active AMITRIPTYLINE HCL 100 MG TAB one at hs AMITRIPTYLINE HCL 70744616667 No Longer Active Vishal Hui MD Active TRAZODONE HCL 100 MG TAB take 1 at bedtime TRAZODONE HCL 58914265131 No Longer Active Vishal Hui MD Active VYVANSE 40 MG CAPS 1 daily, LISDEXAMFETAMINE DIMESYLATE 69537923249 No Longer Active Vishal Hui MD Active IBUPROFEN 600 MG TAB 1 po TID PRN IBUPROFEN 49783600849 No Longer Active Vishal Hui MD Active PROZAC 20 MG CAP Take one by mouth daily FLUOXETINE HCL 78810753300 No Longer Active Vishal Hui MD Active BACTRIM DS 800-160 MG TABS 1 pill by mouth twice daily SULFAMETHOXAZOLE-TRIMETHOPRIM 98641689231 No Longer Active Sahara Rodriguez MD PhD Active DIFLUCAN 150 MG TAB 1 tablet by mouth daily FLUCONAZOLE 25474685735 No Longer Active Vishal Hui MD Active TIZANIDINE HCL 4 MG TABS 1 po q6hr PRN Muscle Spasm/Back Pain TIZANIDINE HCL 34046983703 Active TAMARA Casey Active CLINDAMYCIN HCL 150 MG CAPS 1 four times a day CLINDAMYCIN HCL 05376600407 No Longer Active Neeraj Collins MD Active KEFLEX 500 MG ORAL CAPS 1 cap QID by mouth CEPHALEXIN 61622718909 No Longer Active Neeraj Collins MD Active DIFLUCAN 150 MG TABS 1 pill every other day x 2 doses FLUCONAZOLE 59572680825 No Longer Active Sahara Rodriguez MD PhD Active MELATONIN 3 MG CAPS 2 po q hs MELATONIN 64150574096 No Longer Active Sahara Rodriguez MD PhD Active MULTIVITAMINS CAPS Take one by mouth daily MULTIPLE VITAMIN 37820518689 No Longer Active Sahara Rodriguez MD PhD Active BACTRIM DS 800-160 MG TAB 1 tab by mouth twice daily TRIMETHOPRIM-SULFAMETHOXAZOLE 93395175368 No Longer Active Sahara Rodriguez MD PhD Active [facility] PROBIOTIC ORAL CHEW 2 daily po PROBIOTIC PRODUCT 87794550855 No Longer Active Sahara Rodriguez MD PhD Active BACTRIM DS 800-160 MG TABS 1 po BID x 7 days SULFAMETHOXAZOLE-TRIMETHOPRIM 30766833269 No Longer Active Vishal Hui MD Active CHANTIX STARTING MONTH EARNEST 0.5 MG X 11 & 1 MG X 42 TABS 0.5mg daily for 3 days , then 0.5mg BID for 4 days, then 1mg BID VARENICLINE TARTRATE 28347786863 No Longer Active Lisette Scarrow, RMA Active VERAPAMIL HCL CR 120 MG TAB CR 1 po bid VERAPAMIL HCL 49098413989 No Longer Active Vishal Hui MD Active METOPROLOL SUCCINATE 50 MG TB24 1 tablet by mouth daily METOPROLOL SUCCINATE 94760425473 No Longer Active Vishal Hui MD Active SAPHRIS 10 MG SUBL 1 tab po bid ASENAPINE MALEATE 97390246829 No Longer Active Vishal Hui MD Active LISINOPRIL 20 MG TABS 1 tab po qd LISINOPRIL 94301301067 No Longer Active Vishal Hui MD Active LATUDA 20 MG TABS Take one by mouth daily LURASIDONE HCL 60951017778 No Longer Active Vishal Hui MD Active TRAZODONE HCL 50 MG TABS 1/2 tab po qd prn for anxiety TRAZODONE HCL 13993263415 No Longer Active Vishal Hui MD Active OMEPRAZOLE 20 MG TBEC 1 po q a.m. 30min prior to first food intake OMEPRAZOLE 59816893221 Active Bertha Kirby, RMA Active RANITIDINE HCL 150 MG CAPS 1 twice a day RANITIDINE HCL 97977145587 Active Lynda Xiao LPN Active LINZESS 290 MCG CAPS Take one by mouth daily LINACLOTIDE 19563035933 No Longer Active Vishal Hui MD Active SAPHRIS 5 MG SUBL 1 tab po qd ASENAPINE MALEATE 44238098425 No Longer Active Vishal Hui MD Active ZALEPLON 10 MG CAPS 1 cap po every other night ZALEPLON 32290644503 No Longer Active Vishal Hui MD Active LYRICA 50 MG CAPS 1 tab po TID PREGABALIN 26786173711 No Longer Active Vishal Hui MD Active LORATADINE 10 MG TABS 1 tab po qd LORATADINE 80952243914 No Longer Active Vishal Hui MD Active VERAPAMIL HCL ER 180 MG CR-TABS 1 tab po bid VERAPAMIL HCL 76993579031 No Longer Active Vishal Hui MD Active MIRALAX POWD 1 capfull once daily POLYETHYLENE GLYCOL 3350 88589479407 No Longer Active Vishal Hui MD Active PREDNISONE 20 MG TABS 1 tab po qd PREDNISONE 88176816969 No Longer Active Renzo Thornton DO Active LEVOFLOXACIN 500 MG TABS 1 tab po qd LEVOFLOXACIN 56455823045 No Longer Active Renzo Thornton DO Active BUSPIRONE HCL 15 MG TABS 1 tab po TID BUSPIRONE HCL 66252986796 No Longer Active Renzo Thornton DO Active BENZTROPINE MESYLATE 1 MG TABS 1 tab po qd BENZTROPINE MESYLATE 74096731234 No Longer Active Renzo Thornton DO Active ATENOLOL 25 MG TABS 1 tab po qd ATENOLOL 39509071666 No Longer Active Renzo Thornton DO Active ESCITALOPRAM OXALATE 20 MG TABS 1 tab po qd ESCITALOPRAM OXALATE 65356005167 No Longer Active Renzo Thornton DO Active ADVAIR DISKUS 250-50 MCG/DOSE AEPB 1 puff BID FLUTICASONE-SALMETEROL 01162113272 No Longer Active Renzo Thornton DO Active PREDNISONE 20 MG TAB 2 tabs daily for 3 days, 1 tab daily for 3 days, 1/2 tab daily for 2 days PREDNISONE 80265054108 No Longer Active Vishal Hui MD Active CEFDINIR 300 MG CAPS by mouth twice a day CEFDINIR 85246163831 No Longer Active Vishal Hui MD Active LANSOPRAZOLE 30 MG CPDR 1 cap po qd LANSOPRAZOLE 34430220979 No Longer Active Vishal Hui MD Active BACLOFEN 20 MG TABS 1 tab po tid BACLOFEN 26951468438 No Longer Active Vishal W Dillow MD Active ADVAIR DISKUS 250-50 MCG/DOSE AEPB 1 puff BID ADVAIR DISKUS 250-50 MCG/DOSE AEPB FLUTICASONE-SALMETEROL Inactive ESCITALOPRAM OXALATE 20 MG TABS 1 tab po qd ESCITALOPRAM OXALATE 20 MG TABS 911490 ESCITALOPRAM OXALATE Inactive ATENOLOL 25 MG TABS 1 tab po qd ATENOLOL 25 MG TABS 422646 ATENOLOL Inactive BENZTROPINE MESYLATE 1 MG TABS 1 tab po qd BENZTROPINE MESYLATE 1 MG TABS 844954 BENZTROPINE MESYLATE Inactive BUSPIRONE HCL 15 MG TABS 1 tab po TID BUSPIRONE HCL 15 MG TABS 564099 BUSPIRONE HCL Inactive LEVOFLOXACIN 500 MG TABS 1 tab po qd LEVOFLOXACIN 500 MG TABS 571738 LEVOFLOXACIN Inactive PREDNISONE 20 MG TABS 1 tab po qd PREDNISONE 20 MG TABS 032221 PREDNISONE Inactive MIRALAX POWD 1 capfull once daily MIRALAX POWD 997415 POLYETHYLENE GLYCOL 3350 Inactive VERAPAMIL HCL ER 180 MG CR-TABS 1 tab po bid VERAPAMIL HCL ER 180 MG CR-TABS VERAPAMIL HCL Inactive LORATADINE 10 MG TABS 1 tab po qd LORATADINE 10 MG TABS 549647 LORATADINE Inactive LYRICA 50 MG CAPS 1 tab po TID LYRICA 50 MG CAPS PREGABALIN Inactive ZALEPLON 10 MG CAPS 1 cap po every other night ZALEPLON 10 MG CAPS 444429 ZALEPLON Inactive SAPHRIS 5 MG SUBL 1 tab po qd SAPHRIS 5 MG SUBL ASENAPINE MALEATE Inactive TRAZODONE HCL 50 MG TABS 1/2 tab po qd prn for anxiety TRAZODONE HCL 50 MG TABS 718402 TRAZODONE HCL Inactive LATUDA 20 MG TABS Take one by mouth daily LATUDA 20 MG TABS LURASIDONE HCL Inactive LISINOPRIL 20 MG TABS 1 tab po qd LISINOPRIL 20 MG TABS 562513 LISINOPRIL Inactive SAPHRIS 10 MG SUBL 1 [...] twice daily BACTRIM DS 800-160 MG TAB 828655 TRIMETHOPRIM-SULFAMETHOXAZOLE Inactive MULTIVITAMINS CAPS Take one by mouth daily MULTIVITAMINS CAPS MULTIPLE VITAMIN Inactive MELATONIN 3 MG CAPS 2 po q hs MELATONIN 3 MG CAPS 764344 MELATONIN Inactive KEFLEX 500 MG ORAL CAPS 1 cap QID by mouth KEFLEX 500 MG ORAL CAPS 779886 CEPHALEXIN Inactive CLINDAMYCIN HCL 150 MG CAPS 1 four times a day CLINDAMYCIN HCL 150 MG CAPS 764048 CLINDAMYCIN HCL Inactive DIFLUCAN 150 MG TAB 1 tablet by mouth daily DIFLUCAN 150 MG TAB 538514 FLUCONAZOLE Inactive PROZAC 20 MG CAP Take one by mouth daily PROZAC 20 MG CAP 926049 FLUOXETINE HCL Inactive IBUPROFEN 600 MG TAB 1 po TID PRN IBUPROFEN 600 MG TAB 937066 IBUPROFEN Inactive VYVANSE 40 MG CAPS 1 daily, VYVANSE 40 MG CAPS LISDEXAMFETAMINE DIMESYLATE Inactive TRAZODONE HCL 100 MG TAB take 1 at bedtime TRAZODONE HCL 100 MG TAB 006581 TRAZODONE HCL Inactive AMITRIPTYLINE HCL 100 MG TAB one at hs AMITRIPTYLINE HCL 100 MG TAB 407941 AMITRIPTYLINE HCL Inactive AMLODIPINE BESYLATE 5 MG TABS 1 tablet by mouth daily AMLODIPINE BESYLATE 5 MG TABS 081310 AMLODIPINE BESYLATE Inactive LATUDA 80 MG TABS Take one by mouth daily LATUDA 80 MG TABS LURASIDONE HCL Inactive SAPHRIS 5 MG SUBL 1 po bid SAPHRIS 5 MG SUBL ASENAPINE MALEATE Inactive PREDNISONE 20 MG TAB 2 tabs daily for 4 days, 1 tab daily for 4 days, 1/2 tab daily for 4 days PREDNISONE 20 MG TAB 960191 PREDNISONE Inactive AMBIEN 5 MG ORAL TABS 1 tab at bedtime AMBIEN 5 MG ORAL TABS 330590 ZOLPIDEM TARTRATE Inactive PROZAC 20 MG ORAL CAPS 1 tab daily PROZAC 20 MG ORAL CAPS 955685 FLUOXETINE HCL Inactive ABILIFY 15 MG ORAL TABS 1 tab daily ABILIFY 15 MG ORAL TABS 755064 ARIPIPRAZOLE Inactive METOPROLOL TARTRATE 50 MG TAB 1 po bid METOPROLOL TARTRATE 50 MG TAB 540810 METOPROLOL TARTRATE Inactive TRAMADOL HCL 50 MG TABS 1-2 po TID PRN Pain TRAMADOL HCL 50 MG TABS 790319 TRAMADOL HCL Inactive PIROXICAM 20 MG CAPS 1 cap po qd PRN Pain PIROXICAM 20 MG CAPS 115439 PIROXICAM Inactive MINIPRESS 2 MG CAPS 4 cap po at night MINIPRESS 2 MG CAPS 983369 PRAZOSIN HCL Inactive MIRALAX PACK 1 po qd PRN Constipation MIRALAX PACK 343161 POLYETHYLENE GLYCOL 3350 Inactive METOPROLOL TARTRATE 25 MG ORAL TABS 1/2 tablet twice daily for heart rate and blood pressure METOPROLOL TARTRATE 25 MG ORAL TABS 162691 METOPROLOL TARTRATE Inactive VALIUM 5 MG TAB Take 1-2 tablets daily VALIUM 5 MG TAB 896945 DIAZEPAM Inactive FLAGYL 500 MG TAB 1 tablet by mouth bid FLAGYL 500 MG TAB 177800 METRONIDAZOLE Inactive DICLOFENAC POTASSIUM TABS Take 1 tablet twice a day (pt. is not sure of the dose.) DICLOFENAC POTASSIUM TABS DICLOFENAC POTASSIUM TABS Inactive ZITHROMAX Z-EARNEST 250 MG TABS 2 today and then 1 daily for 4 days ZITHROMAX Z-EARNEST 250 MG TABS 5884491 AZITHROMYCIN Inactive PREDNISONE 20 MG TABS 2 daily for 5 days then 1 daily for 5 days PREDNISONE 20 MG TABS 252828 PREDNISONE Inactive PROAIR HFA 108 (90 BASE) MCG/ACT AERS 2 puffs four times a day as needed 2015 PROAIR HFA 108 (90 BASE) MCG/ACT AERS ALBUTEROL SULFATE Inactive HYDROCODONE-ACETAMINOPHEN 5-325 MG TABS 1 to 2 four times a day as needed for pain use until can be seen by specialist HYDROCODONE- ACETAMINOPHEN 5-325 MG TABS 952209 HYDROCODONE-ACETAMINOPHEN Inactive TESSALON PERLES 100 MG CAP 1 to 2 tablets by mouth 3 times daily as needed for cough TESSALON PERLES 100 MG CAP 419109 BENZONATATE Inactive CHANTIX STARTING MONTH EARNEST 0.5 MG X 11 & 1 MG X 42 TABS take as directed 2015 CHANTIX STARTING MONTH AERNEST 0.5 MG X 11 & 1 MG [...] Pain 2015 DICLOFENAC SODIUM 50 MG TBEC 182708 DICLOFENAC SODIUM Inactive TOPAMAX 50 MG ORAL TABS 1 tab twice daily TOPAMAX 50 MG ORAL TABS 682513 TOPIRAMATE Inactive VIIBRYD 10 MG ORAL TABS Take 1 tablet once a day VIIBRYD 10 MG ORAL TABS VILAZODONE HCL Inactive LEVOFLOXACIN 500 MG ORAL TABS po daily LEVOFLOXACIN 500 MG ORAL TABS 387538 LEVOFLOXACIN Inactive METHYLPREDNISOLONE 4 MG ORAL TABS po daily METHYLPREDNISOLONE 4 MG ORAL TABS 329897 METHYLPREDNISOLONE Inactive OXYCODONE HCL ER 10 MG ORAL T12A 1/2 tab by mouth every 4 hours prn OXYCODONE HCL ER 10 MG ORAL T12A OXYCODONE HCL Inactive FLAGYL 500 MG TAB 1 tablet by mouth bid FLAGYL 500 MG TAB 946169 METRONIDAZOLE Inactive MONISTAT 7 COMBO PACK WOODROW 100 & 2 MG-% (9GM) VAG KIT 1 applicatorful per vagina q pm x 7 MONISTAT 7 COMBO PACK WOODROW 100 & 2 MG-% (9GM) VAG KIT MICONAZOLE NITRATE Inactive BACTRIM DS 800-160 MG TABS 1 twice a day BACTRIM DS 800-160 MG TABS [id number] SULFAMETHOXAZOLE-TRIMETHOPRIM Inactive TRAMADOL HCL 50 MG TABS 1/2-1 tab TID PRN TRAMADOL HCL 50 MG TABS [id number] TRAMADOL HCL Inactive ABILIFY MAINTENA 400 MG IM SUSR 400mg injection every 26 days ABILIFY MAINTENA 400 MG IM SUSR ARIPIPRAZOLE Inactive KLONOPIN 1 MG ORAL TABS 1 tab po TID KLONOPIN 1 MG ORAL TABS [id number] CLONAZEPAM Inactive ADVAIR DISKUS 250-50 MCG/DOSE INH AEPB 1 puff twice a day for asthma ADVAIR DISKUS 250-50 MCG/DOSE INH AEPB FLUTICASONE- SALMETEROL Inactive BENADRYL 25 MG CAP 4 po at bedtime for insomnia BENADRYL 25 MG CAP DIPHENHYDRAMINE HCL Inactive PREDNISONE 20 MG TABS 2 daily for 5 days then 1 daily for 5 days PREDNISONE 20 MG TABS 911544 PREDNISONE Inactive HYDROCODONE-ACETAMINOPHEN 5-325 MG ORAL TABS 1 tab two times a day HYDROCODONE-ACETAMINOPHEN 5-325 MG ORAL TABS 997324 HYDROCODONE-ACETAMINOPHEN Inactive ZITHROMAX Z-EARNEST 250 MG TABS 2 today and then 1 daily for 4 days ZITHROMAX Z-EARNEST 250 MG TABS [id number] AZITHROMYCIN Inactive GUAIFENESIN-CODEINE 100-10 MG/5ML SYRP 5ml every 4 to 6 hours as needed for cough GUAIFENESIN-CODEINE 100-10 MG/5ML SYRP 267297 GUAIFENESIN-CODEINE Inactive HALOPERIDOL 10 MG ORAL TABS 1 tab q.d HALOPERIDOL 10 MG ORAL TABS 403635 HALOPERIDOL Inactive ASPIRIN 325 MG ORAL TABS 1 tab q.d ASPIRIN 325 MG ORAL TABS 989171 ASPIRIN Inactive FLUTICASONE PROPIONATE 50 MCG/ACT SUSP 2 sprays each nostril daily before bed. FLUTICASONE PROPIONATE 50 MCG/ACT SUSP [id number] FLUTICASONE PROPIONATE Inactive ZOFRAN 4 MG TABS 1 po q6hr PRN Nausea ZOFRAN 4 MG TABS 056493 ONDANSETRON HCL Inactive KEFLEX 500 MG CAP 1 po qid KEFLEX 500 MG CAP 632649 CEPHALEXIN Inactive ACETAMINOPHEN-CODEINE 120-12 MG/5ML SOLN 5 ml by mouth every 4-6 hours if needed for cough ACETAMINOPHEN-CODEINE 120-12 MG/5ML SOLN 843034 ACETAMINOPHEN-CODEINE Inactive PREDNISONE 20 MG TAB 1 tablet daily x 4 days PREDNISONE 20 MG TAB 603425 PREDNISONE Inactive TROPICAMIDE 0.5 % OPHTH SOLN 1 drop PRN eye spasms TROPICAMIDE 0.5 % OPHTH SOLN 315293 TROPICAMIDE Inactive LEVAQUIN 500 MG TABS 1 daily for infection LEVAQUIN 500 MG TABS 759642 LEVOFLOXACIN Inactive PREDNISONE 10 MG TABS 2 daily for 5 days then 1 daily for 5 days PREDNISONE 10 MG TABS 025395 PREDNISONE Inactive EQ NICOTINE 21 MG/24HR TRANS [...] for cough TESSALON PERLES 100 MG CAPS 819757 BENZONATATE Inactive AMITIZA 8 MCG ORAL CAPS [...] twice a day MUPIROCIN 2 % OINT 215768 MUPIROCIN Inactive BACTRIM DS 800-160 MG TAB Take one (1) tablet by mouth twice a day for 5 days BACTRIM DS 800-160 MG TAB [id number] TRIMETHOPRIM- SULFAMETHOXAZOLE Inactive LACTULOSE 10 GM/15ML ORAL SOLN 30mL oral BID for IBS-C LACTULOSE 10 GM/15ML ORAL SOLN 608100 LACTULOSE Inactive MIRALAX ORAL POWD 17GMS DAILY IN WATER MIRALAX ORAL POWD 263312 POLYETHYLENE GLYCOL 3350 Inactive CEFDINIR 300 MG CAPS by mouth twice a day CEFDINIR 300 MG CAPS 639791 CEFDINIR Inactive PREDNISONE 20 MG TAB 2 tabs daily for 3 days, 1 tab daily for 3 days, 1/2 tab daily for 2 days PREDNISONE 20 MG TAB 642992 PREDNISONE Inactive BACTRIM DS 800-160 MG TABS 1 po BID x 7 days BACTRIM DS 800-160 MG TABS 19820521 SULFAMETHOXAZOLE-TRIMETHOPRIM Inactive DIFLUCAN 150 MG TABS 1 pill every other day x 2 doses DIFLUCAN 150 MG TABS 499950 FLUCONAZOLE Inactive BACTRIM DS 800-160 MG TABS 1 pill by mouth twice daily BACTRIM DS 800-160 MG TABS 19820521 SULFAMETHOXAZOLE-TRIMETHOPRIM Inactive KEFLEX 500 MG CAP 1 po TID x 10 days KEFLEX 500 MG CAP 754992 CEPHALEXIN Inactive Advance Directives Directive Description Start Date DISCUSSED WITH PATIENT -- NO DECISION MADE Vital Signs Date Name Value Unit Range Description blood pressure, diastolic 94 mm[Hg] BP mcnally blood pressure, systolic 129 mm[Hg] BP sys height E&M 65 [in_us] Bdy height pulse rate E&M 100 /min Heart rate temperature E&M 97.9 [degF] Body temperature weight E&M 261.5 [lb_av] Weight Measured blood pressure, diastolic 79 mm[Hg] BP mcnally blood pressure, systolic 124 mm[Hg] BP sys pulse rate E&M 100 /min Heart rate temperature E&M 99.4 [degF] Body temperature weight E&M 264.5 [lb_av] Weight Measured blood pressure, diastolic 73 mm[Hg] BP mcnally blood pressure, systolic 106 mm[Hg] BP sys pulse rate E&M 106 /min Heart rate temperature E&M 98.6 [degF] Body temperature weight E&M 268 [lb_av] Weight Measured blood pressure, diastolic 90 mm[Hg] BP mcnally blood pressure, systolic 136 mm[Hg] BP sys height E&M 65 [in_us] Bdy height pulse rate E&M 82 /min Heart rate temperature E&M 98.9 [degF] Body temperature weight E&M 260.5 [lb_av] Weight Measured blood pressure, diastolic 87 mm[Hg] BP mcnally blood pressure, systolic 126 mm[Hg] BP sys height E&M 65 [in_us] Bdy height pulse rate E&M 89 /min Heart rate temperature E&M 97.8 [degF] Body temperature weight E&M 269 [lb_av] Weight Measured blood pressure, diastolic 93 mm[Hg] BP mcnally blood pressure, systolic 144 mm[Hg] BP sys pulse rate E&M 100 /min Heart rate temperature E&M 97.5 [degF] Body temperature weight E&M 268.5 [lb_av] Weight Measured blood pressure, diastolic 80 mm[Hg] BP mcnally blood pressure, systolic 126 mm[Hg] BP sys pulse rate E&M 96 /min Heart rate temperature E&M 97.5 [degF] Body temperature weight E&M 267 [lb_av] Weight Measured blood pressure, diastolic 88 mm[Hg] BP mcnally blood pressure, systolic 126 mm[Hg] BP sys pulse rate E&M 110 /min Heart rate temperature E&M 97.5 [degF] Body temperature weight E&M 265 [lb_av] Weight Measured blood pressure, diastolic 83 mm[Hg] BP mcnally blood pressure, systolic 115 mm[Hg] BP sys pulse rate E&M 116 /min Heart rate temperature E&M 97.9 [degF] Body temperature weight E&M 266.5 [lb_av] Weight Measured blood pressure, diastolic 99 mm[Hg] BP mcnally blood pressure, systolic 153 mm[Hg] BP sys pulse rate E&M 105 /min Heart rate temperature E&M 98.8 [degF] Body temperature weight E&M 261 [lb_av] Weight Measured blood pressure, diastolic 96 mm[Hg] BP mcnally blood pressure, systolic 126 mm[Hg] BP sys pulse rate E&M 115 /min Heart rate temperature E&M 97.9 [degF] Body temperature weight E&M 266.5 [lb_av] Weight Measured blood pressure, diastolic 86 mm[Hg] BP mcnally blood pressure, systolic 128 mm[Hg] BP sys pulse rate E&M 93 /min Heart rate temperature E&M 98.5 [degF] Body temperature blood pressure, diastolic 81 mm[Hg] BP mcnally blood pressure, systolic 124 mm[Hg] BP sys height E&M 65 [in_us] Bdy height pulse rate E&M 80 /min Heart rate temperature E&M 98 [degF] Body temperature weight E&M 267 [lb_av] Weight Measured blood pressure, diastolic 84 mm[Hg] BP mcnally blood pressure, systolic 136 mm[Hg] BP sys pulse rate E&M 114 /min Heart rate temperature E&M 98.2 [degF] Body temperature blood pressure, diastolic 74 mm[Hg] BP mcnally blood pressure, systolic 107 mm[Hg] BP sys pulse rate E&M 116 /min Heart rate temperature E&M 98.6 [degF] Body temperature blood pressure, diastolic 79 mm[Hg] BP mcnally blood pressure, systolic 112 mm[Hg] BP sys pulse rate E&M 101 /min Heart rate temperature E&M 98.5 [degF] Body temperature weight E&M 266 [lb_av] Weight Measured blood pressure, diastolic 61 mm[Hg] BP mcnally blood pressure, systolic 102 mm[Hg] BP sys pulse rate E&M 91 /min Heart rate temperature E&M 98.6 [degF] Body temperature weight E&M 267 [lb_av] Weight Measured blood pressure, diastolic 63 mm[Hg] BP mcnally blood pressure, systolic 103 mm[Hg] BP sys pulse rate E&M 89 /min Heart rate temperature E&M 98.6 [degF] Body temperature blood pressure, diastolic 73 mm[Hg] BP mcnally blood pressure, systolic 115 mm[Hg] BP sys pulse rate E&M 109 /min Heart rate temperature E&M 98.3 [degF] Body temperature blood pressure, diastolic 86 mm[Hg] BP mcnally blood pressure, systolic 121 mm[Hg] BP sys pulse rate E&M 102 /min Heart rate temperature E&M 98.2 [degF] Body temperature weight E&M 266 [lb_av] Weight Measured blood pressure, diastolic 89 mm[Hg] BP mcnally blood pressure, systolic 140 mm[Hg] BP sys pulse rate E&M 50 /min Heart rate temperature E&M 98.5 [degF] Body temperature weight E&M 273.5 [lb_av] Weight Measured blood pressure, diastolic 81 mm[Hg] BP mcnally blood pressure, systolic 131 mm[Hg] BP sys pulse rate E&M 108 /min Heart rate temperature E&M 98.2 [degF] Body temperature weight E&M 267.5 [lb_av] Weight Measured blood pressure, diastolic 92 mm[Hg] BP mcnally blood pressure, systolic 144 mm[Hg] BP sys pulse rate E&M 88 /min Heart rate temperature E&M 98.7 [degF] Body temperature weight E&M 267.5 [lb_av] Weight Measured Diagnostic Results Date Name [...] % 11.0-15.0 platelet count 443 THOUSAND/UL 10*3/mm3 909-199 9884/03/01 mean platelet volume 8.2 fL 7.5-12.5 leukocyte [...] % 11.0-15.0 platelet count 349 THOUSAND/UL 10*3/mm3 445-671 7682/04/12 mean platelet volume 8.4 fL 7.5-12.5 Lab Report: CBC W/DIFF, Comp. Metabolic Panel, HGBA1C, Magnesium - Chemistry sodium, serum 141 mmol/L 222-765 5853/07/24 carbon dioxide, venous blood 27.8 mmol/L 21.0-32.0 potassium, serum 4.3 mmol/L 3.5-5.2 chloride, serum 106 mmol/L 98-107 blood glucose 108 mg/dL 65-110 urea nitrogen, blood 10 mg/dL 7-18 creatinine, serum 0.89 mg/dL 0.60-1.30 alanine aminotransferase (SGPT), serum 39 U/L 12-78 aspartate aminotransferase (SGOT), serum 23 U/L 15-37 calcium, serum 8.9 mg/dL 8.5-10.1 bilirubin, serum, total 0.10 mg/dL 0.00-1.00 hemoglobin A1C, blood, as % of total hemoglobin 5.4 % 4.3-6.0 Lab Report: CBC W/DIFF, Comp. Metabolic Panel, HGBA1C, Magnesium - Hematology leukocyte count, blood 10.7 10^3/MM^3 10*3/mm3 4.6-10.2 neutrophils as percent of blood leukocytes 61.5 % 42.2-75.2 monocytes as percent of blood leukocytes 7.5 % 2.0-10.0 lymphocytes as percent of blood leukocytes 28.1 % 20.0-40.0 erythrocyte (RBC) count 4.47 10^6/MM^3 10*6/mm3 3.80-5.80 hemoglobin, blood 13.9 g/dL 12.0-16.0 hematocrit, blood 41.2 % 37.0-47.0 mean corpuscular volume, RBC 92 fL 80-97 mean corpuscular hemoglobin, RBC 31.0 pg 27.0-31.2 mean corpuscular hemoglobin concentration, RBC 33.7 G/DL % 31.8- 35.4 red blood cell distribution width 13.6 % 13.0-18.0 platelet count 382 10^3/MM^3 10*3/mm3 142-424 Lab Report: CBC, Thyroid Stimulating Hormone (L) [...] 369 10^3/MM^3 10*3/mm3 142-424 Lab Report: Chlamydia/GC APTIMA/62666 - Lab chlamydia DNA probe NOT DETECTED NOT DETECTED Lab Report: Chlamydia/GC APTIMA/46917 - Microbiology Neisseria gonorrhoeae DNA probe NOT DETECTED NOT DETECTED Lab Report: Chlamydia/GC APTIMA/11061, Urinalysis, Complete, with Reflex ... - Lab chlamydia DNA probe NOT DETECTED NOT DETECTED Lab Report: Chlamydia/GC APTIMA/06787, Urinalysis, Complete, with Reflex ... - Microbiology Neisseria gonorrhoeae DNA probe NOT DETECTED NOT DETECTED Lab Report: Chlamydia/GC APTIMA/44525, Urinalysis, Complete, with Reflex ... - Urinalysis microalbumin/total urine volume 2 mg/L Units converted. See lab report for original value. microalbumin/creatinine ratio, urine 9 MCG/MG CREAT mg/L <30 Lab Report: Comp. Metabolic Panel - Chemistry sodium, serum 140 mmol/L 855-232 1423/08/08 carbon dioxide, venous blood 33.7 mmol/L 21.0-32.0 potassium, serum 5.0 mmol/L 3.5-5.2 chloride, serum 103 mmol/L 98-107 blood glucose 80 mg/dL 65-110 urea nitrogen, blood 13 mg/dL 7-18 creatinine, serum 0.88 mg/dL 0.55-1.30 alanine aminotransferase (SGPT), serum 54 U/L 12-78 aspartate aminotransferase (SGOT), serum 29 U/L 15-37 calcium, serum 9.7 mg/dL 8.5-10.1 bilirubin, serum, total 0.30 mg/dL 0.00-1.00 sodium, serum 140 mmol/L 672-486 4826/06/28 carbon dioxide, venous blood 23.8 mmol/L 21.0-32.0 potassium, serum 3.8 mmol/L 3.5-5.2 chloride, serum 104 mmol/L 98-107 blood glucose 78 mg/dL 65-110 urea nitrogen, blood 12 mg/dL 7-18 creatinine, serum 0.86 mg/dL 0.55-1.30 alanine aminotransferase (SGPT), serum 38 U/L 12-78 aspartate aminotransferase (SGOT), serum 17 [...] >=1.030 1.000-1.030 pH, urine, semiquantitative 5.0 5.0-8.5 Office Visit: Possible UTI - Chemistry protein, total urine random negative mg/dL RBC, urine, dipstick negative Office Visit: Possible UTI - Urinalysis specific gravity, urine 1.005 ketones, urine, by test strip negative bilirubin, urine negative glucose, urine, semiquantitative negative urinalysis, routine Clean Catch culture status Yes pH, urine, semiquantitative 5 urine color yellow appearance, urine clear leukocyte esterase, urine, by dipstick negative nitrite, urine, semiquantitative negative urobilinogen, urine, semiquantitative (dipstick) negative Encounters Code Encounter Date Provider Facility CPT-13496 Level 3 Est. [facility]36:[facility] Est[facility] Patient 10:53:17 [facility] Level 3 Est. Patient 11:08:35 CDT Suzan [facility] CPT-60193 Level 3 Est. Patient 15:55:20 CDT Suzan [facility] CPT-19487 Level 4 Est. Patient 10:49:34 CDT Suzan [facility] CPT-85047 Level 3 Est. Patient 10:00:25 [facility]16797 Level 3 Est. Patient 10:29:30 [facility] Level 3 Est. Patient 11:04:38 CDT Renzo Thornton [facility] CPT-83405 Level 3 Est. Patient 11:15:58 FOOT DRILL OPERATOR Renzo Thornton [facility] CPT-02432 Level 3 Est. Patient 15:28:23 FOOT DRILL OPERATOR Suzan Boo [facility] CPT-91950 Level 4 Est. Patient 10:20:54 FOOT DRILL OPERATOR Suzan Boo [facility] CPT-75458 Level 3 Est. Patient 11:47:37 FOOT DRILL OPERATOR Ahmet Carbajal MD [facility] CPT-52352 Level 3 Est. Patient 10:40:11 FOOT DRILL OPERATOR Ahmet Carbajal MD [facility] CPT-70987 Level 3 Est. Patient 15:07:06 FOOT DRILL OPERATOR Neeraj Collins MD [facility] CPT-05063 Level 4 Est. Patient 14:45:00 FOOT DRILL OPERATOR Ahmet Carbajal MD [facility] CPT-94534 Level 3 Est. Patient 13:59:59 CDT 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 [facility] CPT-99110 Level 3 Est. Patient 18:18:53 CDT Neeraj Collins MD [facility] CPT-31931 Level 3 Est. Patient 15:50:44 CDT Vishal Hui MD [facility] CPT-11401 Level 3 Est. Patient 11:36:17 CDT Ahmet Carbajal MD [facility] CPT-47554 Level 3 Est. Patient 13:29:16 CDT Vishal Hui MD [facility] CPT-33873 Level 3 Est. Patient 14:27:52 CDT Neeraj Collins MD [facility] CPT-20772 Level 3 Est. Patient 08:56:03 CDT 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 [facility] CPT-23704 Level 4 Est. Patient 12:11:48 CDT Fabiola Johnson [facility] CPT-44403 Level 3 New Patient 16:53:37 CDT Albert Caldera MD [facility] CPT-14965 Level 3 Est. Patient 11:25:49 CDT Renzo Thornton DO [facility] CPT-89002 Level 3 Est. Patient 15:22:01 CDT Ahmet Carbajal MD [facility] CPT-17084 Level 4 Est. Patient 09:00:51 FOOT DRILL OPERATOR Vishal Hui MD [facility] CPT-45616 Level 3 Est. Patient 11:37:33 FOOT DRILL OPERATOR Vishal Hui MD [facility] CPT-23257 Level 3 Est. Patient 08:41:09 FOOT DRILL OPERATOR Vishal Hui MD [facility] CPT-53528 Level 4 Est. Patient 10:19:35 FOOT DRILL OPERATOR Vishal Hui MD [facility]-83766 Level 3 Est. Patient 13:35:45 CDT Vishal Hui MD [facility] CPT-44071 Level 4 Est. Patient 10:08:37 CDT Vishal Hui MD [facility]-93288 Level 3 Est. Patient 11:22:10 CDT Vishal Hui MD [facility] CPT-16644 Level 3 Est. Patient 11:03:32 CDT Sahara Rodriguez MD PhD [facility]-67912 Level 3 Est. Patient 09:41:35 CDT Vishal Hui MD [facility]-90715 Level 3 Est. Patient 12:00:41 CDT Neeraj Collins MD [facility]-74224 Level 3 Est. Patient 09:16:24 CDT Vishal Hui MD [facility] CPT-39828 Level 4 Est. Patient 13:59:09 CDT Neeraj Collins MD [facility]-76496 Level 3 Est. Patient 15:19:43 CDT Renzo Thornton DO [facility] CPT-56466 Level 3 Est. Patient 18:10:26 CDT Sahara Rodriguez MD PhD [facility]-95929 Level 3 Est. Patient 14:49:50 CDT Vishal Hui MD [facility]-34871 Level 4 Est. Patient 18:41:46 CDT Neeraj Collins MD [facility]-61916 Level 4 Est. Patient 09:18:38 FOOT DRILL OPERATOR Vishal Hui MD [facility]-96375 Level 3 Est. Patient 14:43:55 FOOT DRILL OPERATOR Vishal Hui MD [facility]-82296 Level 3 Est. Patient 15:26:33 FOOT DRILL OPERATOR Sahara Rodriguez MD PhD [facility] CPT-07156 Level 3 Est. Patient 10:32:14 FOOT DRILL OPERATOR Vishal Hui MD [facility] CPT-11028 Level 3 Est. Patient 15:12:52 FOOT DRILL OPERATOR Vishal Hui MD [facility] CPT-61456 Level 4 Est. Patient 09:19:27 CDT Vishla Hui MD [facility] CPT-21475 Level 3 Est. Patient 15:53:00 CDT Renzo Thornton [facility] CPT-48230 Level 3 Est. Patient 15:50:30 CDT Renzo Thornton [facility] CPT-54464 Level 3 Est. Patient 16:55:24 CDT Vishal Hui MD [facility] Procedures Code Procedure Name Date Entry Date Standard Description CPT-59284 UA Dip Auto (Floor Use Only) 11:36:47 CDT CPT-60929 Venipuncture Draw Fee 10:53:17 CDT CPT-58113 EKG Trac and Interp - XRAY USE ONLY 15:59:30 CDT 09/13 CPT-68985 Chest 1V Frontal - XRAY USE ONLY 15:59:30 CDT CPT-37363 Venipuncture Draw Fee 15:44:02 CDT CPT-96123 Venipuncture Draw Fee 08:41:12 CDT CPT-79330 Abd compl w upright - XRAY USE ONLY 10:27:59 CDT 06/28 CPT-98689 Smoking Cessation counseling 11:15:58 FOOT DRILL OPERATOR CPT-G0439 [facility] Annual Wellness Exam 09:30:58 FOOT DRILL OPERATOR CPT-26327 TSH - LAB USE ONLY 08:50:26 FOOT DRILL OPERATOR CPT-23493 CBC - LAB USE ONLY 08:50:26 FOOT DRILL OPERATOR CPT-59648 Venipuncture Draw Fee 08:50:26 FOOT DRILL OPERATOR CPT-76558 Abx/Therapy Injection 17:34:30 FOOT DRILL OPERATOR CPT-83972 Nexplanon Removal with Reinsertion 14:09:32 CDT CPT-J7307 Nexplanon (Implant) 14:09:32 CDT CPT-OV Office Visit 14:09:32 CDT CPT-89470 UA w micro - LAB USE ONLY 16:21:13 CDT CPT-13503 Wet Mount - LAB USE ONLY 16:21:13 CDT CPT-58911 First Vx - Ix admin for Medicare patients 14:37:47 CDT CPT-08821 Fluzone Preservative Free Intramuscular Suspension 14:37 :47 CDT CPT-36461 Abx/Therapy Injection 13:54:22 CDT CPT-46686 Abx/Therapy Injection 08:47:09 CDT CPT-14086 Abx/Therapy Injection 13:29:56 CDT CPT-88043 Abx/Therapy Injection 08:36:16 CDT CPT-71766 Wet Mount - LAB USE ONLY 17:44:58 CDT CPT-41784 UA w micro - LAB USE ONLY 17:44:58 CDT CPT-85605 CMP - LAB USE ONLY 17:44:58 CDT CPT-44626 Venipuncture Draw Fee 17:44:58 CDT CPT-23210 Cervical Min 4V - XRAY USE ONLY 09:01:40 CDT CPT-32224 Chest 2V Frontal and Lat - XRAY USE ONLY 11:06:31 CDT CPT-86386 EKG Trac and Interp - XRAY USE ONLY 11:31:43 CDT 08/26 CPT-J3420 Vitamin B12 1000mcg (Cyanocobalamin) 08:10:26 FOOT DRILL OPERATOR 04/12 CPT-71235 Abx/Therapy Injection 08:10:26 FOOT DRILL OPERATOR CPT-G0438 Initial Annual Wellness Exam 19:01:01 FOOT DRILL OPERATOR CPT-J3420 Vitamin B12 1000mcg (Cyanocobalamin) 16:57:46 CDT 08/14 CPT-62342 Recombivax HB Injection Suspension 5 MCG/0.5ML 08:37:50 FOOT DRILL OPERATOR CPT-74684 Immunization Single Admin 08:37:50 FOOT DRILL OPERATOR CPT-J3420 Vitamin B12 1000mcg (Cyanocobalamin) 08:32:16 FOOT DRILL OPERATOR 03/11 CPT-76140 Abx/Therapy Injection 08:32:16 FOOT DRILL OPERATOR CPT-20321 Chest 2V Frontal and Lat 11:46:38 FOOT DRILL OPERATOR CPT-80461 Venipuncture Draw Fee 09:12:45 FOOT DRILL OPERATOR CPT-J3420 Vitamin B12 1000mcg (Cyanocobalamin) 08:50:15 FOOT DRILL OPERATOR 02/08 CPT-99038 Abx/Therapy Injection 08:50:15 FOOT DRILL OPERATOR CPT-Cryo Cryotherapy 10:19:35 FOOT DRILL OPERATOR CPT-000 Give Appropriate Flu Vaccine 09:22:16 CDT CPT-J3420 Vitamin B12 1000mcg (Cyanocobalamin) 19:08:57 CDT 01/11 CPT-57273 Abx/Therapy Injection 19:08:57 CDT CPT-J3420 Vitamin B12 1000mcg (Cyanocobalamin) 08:19:08 CDT 12/11 CPT-30193 Abx/Therapy Injection 08:19:08 CDT CPT-J3420 Vitamin B12 1000mcg (Cyanocobalamin) 14:48:00 CDT 11/09 CPT-46653 Abx/Therapy Injection 14:47:59 CDT CPT-J3420 Vitamin B12 1000mcg (Cyanocobalamin) 08:34:04 CDT 10/09 CPT-11155 Abx/Therapy Injection 08:34:04 CDT CPT-J3420 Vitamin B12 1000mcg (Cyanocobalamin) 09:18:52 CDT 09/11 CPT-30711 Abx/Therapy Injection 09:18:52 CDT CPT-J3420 Vitamin B12 1000mcg (Cyanocobalamin) 08:35:44 CDT 09/04 CPT-79660 Abx/Therapy Injection 08:35:44 CDT CPT-75474 Immunization Single Admin 11:07:16 CDT CPT-29370 Hepatitis B adult IM 11:07:16 CDT CPT-J3420 Vitamin B12 1000mcg (Cyanocobalamin) 11:00:49 CDT 08/28 CPT-J1040 Depo Medrol 80 mg (Methyl Prednisolone Acetate) 11:00: 49 CDT CPT-21220 Abx/Therapy Injection 11:00:49 CDT CPT-J1040 Depo Medrol 80 mg (Methyl Prednisolone Acetate) 09:16: 23 CDT CPT-J3420 Vitamin B12 1000mcg (Cyanocobalamin) 08:27:05 CDT 08/20 CPT-55554 Abx/Therapy Injection 08:27:05 CDT CPT-11289 Recombivax HB Injection Suspension 5 MCG/0.5ML 10:00:41 CDT CPT-19468 Administration single or combination vaccine inc oral 10 :00:41 CDT CPT-59823 Sono transvag pelvis non OB uterus ovaries cervix 16:36: 57 CDT CPT-75532 LS spine comp w obliq 09:50:55 FOOT DRILL OPERATOR CPT-64755 Abd compl w upright 09:50:55 FOOT DRILL OPERATOR CPT-J1100 Decadron 4mg (Dexamethasone) 15:51:24 FOOT DRILL OPERATOR CPT-J1030 Depo Medrol 40 mg (Methyl Prednisolone Acetate) 15:51: 24 FOOT DRILL OPERATOR CPT-22570 Abx/Therapy Injection 15:51:24 FOOT DRILL OPERATOR CPT-J1100 Decadron 4mg (Dexamethasone) 15:26:33 FOOT DRILL OPERATOR CPT-J1030 Depo Medrol 40 mg (Methyl Prednisolone Acetate) 15:26: 33 FOOT DRILL OPERATOR CPT-09778 Sono retroperitoneal complete kidneys and bladder 17:15: 30 CDT CPT-95552 Abd compl w upright 16:09:25 CDT CPT-J1100 Decadron 8mg (Dexamethasone) 17:07:57 CDT CPT-22162 Abx/Therapy Injection 17:07:57 CDT CPT-J1100 Decadron 8mg (Dexamethasone) 16:55:24 CDT CPT-86917 Chest 2V Frontal and Lat 16:32:44 CDT
--- OUTSIDE RECORDS SUMMARY | 2016-11-04 10:54 | XMS REPORT | Clinical Summary ---
Author Author Admin, BRIELLEE Organization [facility] Address Unknown Phone Unavailable Allergies, Adverse Reactions, [...] MD Dysthymic disorder Hypertension 401.9 Active Vishal Hiu MD Unspecified essential hypertension Pneumonia, organism unspecified 486 Resolved Vishal Hui MD Pneumonia, organism unspecified Flank pain, right 789.09 Resolved Vishal Hui MD Abdominal pain, other specified site; multiple sites G E R D 530.81 Resolved Vishal uHi MD Esophageal reflux Health screening V70.0 Active [...] of unspecified sites Pelvic pain 625.9 Resolved Vihsal Hui MD Unspecified symptom associated with female [...] of unspecified site Fatigue 780.79 Resolved Vishal uHi MD Other malaise and fatigue Fatigue 780.79 [...] sites Morbid obesity 278.01 Active Juliet Kimbrough [employer] Morbid obesity 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 Active Juliet [...] MD Shortness of breath Nocturnal hypoxia 799.02 Active Fabiola Johnson [employer] Hypoxemia Neck pain 723.1 Resolved Vishal Hui MD Cervicalgia Vaginal discharge 623.5 Resolved Vishal Hui MD Leukorrhea, not specified as infective Abdominal pain, right lower quadrant 789.03 Resolved Vishal Hui MD Abdominal pain, right lower quadrant Calf pain, left 729.5 Resolved Vishal Hui MD Pain in limb Asthma, acute 493.92 Resolved Vishal Hui MD Asthma, unspecified with (acute) exacerbation Upper respiratory infection 465.9 Active Vishal Hui MD Acute upper respiratory infections of unspecified site Other fracture of upper and lower end of left fibula, initial encounter for closed fracture 823.01 Active Neeraj Collins MD Closed fracture of upper end of fibula Vaginal discharge 623.5 Active 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 APRN Leukorrhea, not specified as infective DYSURIA 788.1 Active 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 APRN Dysuria Anxiety Disorder ICD-300.00 Inactive Vishal Hui MD [...] Inactive Vishal Hui MD Postconcussion syndrome ICD-310.2 Jim Hui [...] of breath ICD-786.05 Inactive Vishal Hui MD Neck pain ICD-723.1 Inactive Vishal Hui MD Vaginal discharge ICD-623.5 Inactive Vishal Hui MD Abdominal pain, right lower quadrant ICD-789.03 Inactive Vishal Hui MD Calf pain, left ICD-729.5 Inactive Vishal Hui MD Asthma, acute ICD-493.92 Inactive Vishal Hui MD Medication List Medication Instructions Start Date Stop Date Generic Name NDC Status Provider Patient Instruction MONISTAT 7 COMBO PACK WOODROW 100 & 2 MG-% (9GM) VAG KIT 1 applicatorful per vagina q pm x 7 MICONAZOLE NITRATE 50834756984 Active Pacollina Johnl [employer] Active FLAGYL 500 MG TAB 1 tablet by mouth bid METRONIDAZOLE 37505368310 Active Jillina Frazell [employer] Active TESSALON PERLES 100 MG CAP 1 to 2 tablets by mouth 3 times daily as needed for cough BENZONATATE 12585177138 No Longer Active Tataina Messizell [employer] Active ABILIFY MAINTENA 400 MG IM SUSR 400mg injection every 26 days ARIPIPRAZOLE 24132533968 Active Silvia Casey [employer]ING[employer] Active IMITREX 50 MG ORAL TABS 0.5 po x 1 PRN Headache. May repeat dose x 1 in 2 hours if needed SUMATRIPTAN SUCCINATE 22980237996 Active Vishal Hui MD Active OXYCODONE HCL ER 10 MG ORAL T12A 1/2 tab by mouth every 4 hours prn OXYCODONE HCL 39582083361 Active Neeraj Collins MD Active METHYLPREDNISOLONE 4 MG ORAL TABS po daily METHYLPREDNISOLONE 42467601963 Active Vishal Hui MD Active LEVOFLOXACIN 500 MG ORAL TABS po daily LEVOFLOXACIN 88761971300 Active Vishal Hui MD Active CHANTIX STARTING MONTH EARNEST 0.5 MG X 11 & 1 MG X 42 TABS take as directed 2015 VARENICLINE TARTRATE 46658866956 Active Ahmet Carbajal MD Active CHANTIX 1 MG TABS 1 twice a day to help quit smoking VARENICLINE TARTRATE 39611598586 Active Ahmet Carbajal MD Active HYDROCODONE-ACETAMINOPHEN 5-325 MG TABS 1 to 2 four times a day as needed for pain use until can be seen by specialist HYDROCODONE- ACETAMINOPHEN 88085221730 No Longer Active Vishal Hui MD Active PROAIR HFA 108 (90 BASE) MCG/ACT AERS 2 puffs four times a day as needed 2015 ALBUTEROL SULFATE 27969004242 No Longer Active Vishal Hui MD Active PREDNISONE 20 MG TABS 2 daily for 5 days then 1 daily for 5 days PREDNISONE 47955876921 No Longer Active Vishal Hui MD Active ZITHROMAX Z-EARNEST 250 MG TABS 2 today and then 1 daily for 4 days AZITHROMYCIN 68723735546 No Longer Active Vishal Hui MD Active DICLOFENAC SODIUM 50 MG TBEC 1 tablet by mouth four times daily PRN Pain 2015 DICLOFENAC SODIUM 39066590673 Active Vishal Hui MD Active DICLOFENAC POTASSIUM TABS Take 1 tablet twice a day (pt. is not sure of the dose.) DICLOFENAC POTASSIUM TABS 21080211438 No Longer Active Vishal Hui MD Active VERAPAMIL HCL ER 120 MG ORAL CR-TABS Take 1 tablet by mouth twice a day. VERAPAMIL HCL 61417479847 Active Vishal Hui MD Active FLAGYL 500 MG TAB 1 tablet by mouth bid METRONIDAZOLE 70538558633 No Longer Active Vishal Hui MD Active FLUTICASONE PROPIONATE 50 MCG/ACT SUSP 2 sprays each nostril daily before bed. FLUTICASONE PROPIONATE 06066431704 Active Fabiola Johnson APRN Active ADZENYS XR-ODT 6.3 MG ORAL TBED 1 tab po daily for ADHD AMPHETAMINE 17103619095 Active Fabiola Johnson APRN Active BENADRYL 25 MG CAP 4 po at bedtime for insomnia DIPHENHYDRAMINE HCL 13161157117 Active Fabiola Johnson APRN Active KLONOPIN 1 MG ORAL TABS 1 tab po TID CLONAZEPAM 71824624583 Active Fabiola Johnson APRN Active VALIUM 5 MG TAB Take 1-2 tablets daily DIAZEPAM 85829007382 No Longer Active Fabiola Johnson APRN Active METOPROLOL TARTRATE 25 MG ORAL TABS 1/2 tablet twice daily for heart rate and blood pressure METOPROLOL TARTRATE 73139693512 No Longer Active Fabiola Johnson APRN Active MIRALAX ORAL POWD 17GMS DAILY IN WATER POLYETHYLENE GLYCOL 3350 00806872415 Active Vishal Hui MD Active VIIBRYD 10 MG ORAL TABS Take 1 tablet once a day VILAZODONE HCL 29394987651 Active Ahmet Carbajal MD Active MIRALAX PACK 1 po qd PRN Constipation POLYETHYLENE GLYCOL 3350 35831453580 No Longer Active Ahmet Carbajal MD Active MINIPRESS 2 MG CAPS 4 cap po at night PRAZOSIN HCL 43499935740 No Longer Active Ahmet Carbajal MD Active PIROXICAM 20 MG CAPS 1 cap po qd PRN Pain PIROXICAM 18401825067 No Longer Active Ahmet Carbajal MD Active TRAMADOL HCL 50 MG TABS 1-2 po TID PRN Pain TRAMADOL HCL 89044232024 No Longer Active Ahmet Carbajal MD Active METOPROLOL TARTRATE 50 MG TAB 1 po bid METOPROLOL TARTRATE 70709790839 No Longer Active Ahmet Carbajal MD Active ABILIFY 15 MG ORAL TABS 1 tab daily ARIPIPRAZOLE 73935512484 No Longer Active Ahmet Carbajal MD Active PROZAC 20 MG ORAL CAPS 1 tab daily FLUOXETINE HCL 14429845337 No Longer Active Ahmet Carbajal MD Active AMBIEN 5 MG ORAL TABS 1 tab at bedtime ZOLPIDEM TARTRATE 88477846354 No Longer Active Ahmet Carbajal MD Active PREDNISONE 20 MG TAB 2 tabs daily for 4 days, 1 tab daily for 4 days, 1/2 tab daily for 4 days PREDNISONE 79712329339 No Longer Active Ahmet Carbajal MD Active KEFLEX 500 MG CAP 1 po TID x 10 days CEPHALEXIN 42068607104 No Longer Active Vishal Hui MD Active TOPAMAX 50 MG ORAL TABS 1 tab twice daily TOPIRAMATE 21331460957 Active Vishal Hui MD Active SAPHRIS 5 MG SUBL 1 po bid ASENAPINE MALEATE 66195953998 No Longer Active 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 [employer] Active LATUDA 80 MG TABS Take one by mouth daily LURASIDONE HCL 37168121444 No Longer Active Jillina Johnl [employer] Active AMLODIPINE BESYLATE 5 MG TABS 1 tablet by mouth daily AMLODIPINE BESYLATE 97722391279 No Longer Active 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 [employer] Active AMITRIPTYLINE HCL 100 MG TAB one at hs AMITRIPTYLINE HCL 36062759342 No Longer Active Vishal Hui MD Active TRAZODONE HCL 100 MG TAB take 1 at bedtime TRAZODONE HCL 15485211500 No Longer Active Vishal Hui MD Active VYVANSE 40 MG CAPS 1 daily, LISDEXAMFETAMINE DIMESYLATE 82168382669 No Longer Active Vishal Hui MD Active IBUPROFEN 600 MG TAB 1 po TID PRN IBUPROFEN 00536011687 No Longer Active Vishal Hui MD Active PROZAC 20 MG CAP Take one by mouth daily FLUOXETINE HCL 38157326920 No Longer Active Vishal Hui MD Active ZOFRAN 4 MG TABS 1 po q6hr PRN Nausea ONDANSETRON HCL Active Vishal Hui MD Active BACTRIM DS 800-160 MG TABS 1 pill by mouth twice daily SULFAMETHOXAZOLE-TRIMETHOPRIM 73463978183 No Longer Active Sahara Rodriguez MD PhD Active DIFLUCAN 150 MG TAB 1 tablet by mouth daily FLUCONAZOLE 62069098487 No Longer Active Vishal Hui MD Active TIZANIDINE HCL 4 MG TABS 1 po q6hr PRN Muscle Spasm/Back Pain TIZANIDINE HCL 68513204743 Active Vishal Hui MD Active CLINDAMYCIN HCL 150 MG CAPS 1 four times a day CLINDAMYCIN HCL 39363343715 No Longer Active Neeraj Collins MD Active KEFLEX 500 MG ORAL CAPS 1 cap QID by mouth CEPHALEXIN 67360032980 No Longer Active Neeraj Collins MD Active DIFLUCAN 150 MG TABS 1 pill every other day x 2 doses FLUCONAZOLE 25797772696 No Longer Active Sahara Rodriguez MD PhD Active MELATONIN 3 MG CAPS 2 po q hs MELATONIN 42380259074 No Longer Active Sahara Rodriguez MD PhD Active MULTIVITAMINS CAPS Take one by mouth daily MULTIPLE VITAMIN 12576857498 No Longer Active Sahara Rodriguez MD PhD Active BACTRIM DS 800-160 MG TAB 1 tab by mouth twice daily TRIMETHOPRIM-SULFAMETHOXAZOLE 99696912336 No Longer Active Sahara Rodriguez MD PhD Active [facility] PROBIOTIC ORAL CHEW 2 daily po PROBIOTIC PRODUCT 30606885076 No Longer Active Sahara Rodriguez MD PhD Active BACTRIM DS 800-160 MG TABS 1 po BID x 7 days SULFAMETHOXAZOLE-TRIMETHOPRIM 70015370256 No Longer Active Vishal Hui MD Active CHANTIX STARTING MONTH EARNEST 0.5 MG X 11 & 1 MG X 42 TABS 0.5mg daily for 3 days , then 0.5mg BID for 4 days, then 1mg BID VARENICLINE TARTRATE 12832753597 No Longer Active TAMARA Gray Active VERAPAMIL HCL CR 120 MG TAB CR 1 po bid VERAPAMIL HCL 84330356875 No Longer Active Vishal Hui MD Active METOPROLOL SUCCINATE 50 MG TB24 1 tablet by mouth daily METOPROLOL SUCCINATE 97125466941 No Longer Active Vishal Hui MD Active SAPHRIS 10 MG SUBL 1 tab po bid ASENAPINE MALEATE 03701761518 No Longer Active Vishal Hui MD Active LISINOPRIL 20 MG TABS 1 tab po qd LISINOPRIL 91135229494 No Longer Active Vishal Hui MD Active LATUDA 20 MG TABS Take one by mouth daily LURASIDONE HCL 84082258760 No Longer Active Vishal Hui MD Active TRAZODONE HCL 50 MG TABS 1/2 tab po qd prn for anxiety TRAZODONE HCL 55148425783 No Longer Active Vishal Hui MD Active OMEPRAZOLE 20 MG TBEC 1 po q a.m. 30min prior to first food intake OMEPRAZOLE 38321088879 Active Vishal Hui MD Active RANITIDINE HCL 150 MG CAPS 1 twice a day RANITIDINE HCL 90420730885 Active Jillina Messidwightl [employer] Active LINZESS 290 MCG CAPS Take one by mouth daily LINACLOTIDE 34701494197 No Longer Active Vishal Hui MD Active SAPHRIS 5 MG SUBL 1 tab po qd ASENAPINE MALEATE 34509997547 No Longer Active Vishal Hui MD Active ZALEPLON 10 MG CAPS 1 cap po every other night ZALEPLON 03253354468 No Longer Active Vishal Hui MD Active LYRICA 50 MG CAPS 1 tab po TID PREGABALIN 40394557992 No Longer Active Vishal Hui MD Active LORATADINE 10 MG TABS 1 tab po qd LORATADINE 38102208185 No Longer Active Vishal Hui MD Active VERAPAMIL HCL ER 180 MG CR-TABS 1 tab po bid VERAPAMIL HCL 19388658169 No Longer Active Vishal Hui MD Active MIRALAX POWD 1 capfull once daily POLYETHYLENE GLYCOL 3350 92989165163 No Longer Active Vishal Hui MD Active PREDNISONE 20 MG TABS 1 tab po qd PREDNISONE 69212554249 No Longer Active Renzo Thornton DO Active LEVOFLOXACIN 500 MG TABS 1 tab po qd LEVOFLOXACIN 43385025300 No Longer Active Renzo Thornton DO Active BUSPIRONE HCL 15 MG TABS 1 tab po TID BUSPIRONE HCL 24877794693 No Longer Active Renzo Thornton DO Active BENZTROPINE MESYLATE 1 MG TABS 1 tab po qd BENZTROPINE MESYLATE 01722833384 No Longer Active Renzo Thornton DO Active ATENOLOL 25 MG TABS 1 tab po qd ATENOLOL 57543824879 No Longer Active Renzo Thornton DO Active ESCITALOPRAM OXALATE 20 MG TABS 1 tab po qd ESCITALOPRAM OXALATE 90232957867 No Longer Active Renzo Thornton DO Active ADVAIR DISKUS 250-50 MCG/DOSE AEPB 1 puff BID FLUTICASONE-SALMETEROL 96665509384 No Longer Active Renzo Thornton DO Active PREDNISONE 20 MG TAB 2 tabs daily for 3 days, 1 tab daily for 3 days, 1/2 tab daily for 2 days PREDNISONE 69485332754 No Longer Active Vishal Hui MD Active CEFDINIR 300 MG CAPS by mouth twice a day CEFDINIR 48587812993 No Longer Active Vishal Hui MD Active LANSOPRAZOLE 30 MG CPDR 1 cap po qd LANSOPRAZOLE 06974838730 No Longer Active Vishal Hui MD Active BACLOFEN 20 MG TABS 1 tab po tid BACLOFEN 73321607943 No Longer Active Vishal Hui MD Active ADVAIR DISKUS 250-50 MCG/DOSE AEPB 1 puff BID ADVAIR DISKUS 250-50 MCG/DOSE AEPB FLUTICASONE-SALMETEROL Inactive ESCITALOPRAM OXALATE 20 MG TABS 1 tab po qd ESCITALOPRAM OXALATE 20 MG TABS 139041 ESCITALOPRAM OXALATE Inactive ATENOLOL 25 MG TABS 1 tab po qd ATENOLOL 25 MG TABS 310443 ATENOLOL Inactive BENZTROPINE MESYLATE 1 MG TABS 1 tab po qd BENZTROPINE MESYLATE 1 MG TABS 136648 BENZTROPINE MESYLATE Inactive BUSPIRONE HCL 15 MG TABS 1 tab po TID BUSPIRONE HCL 15 MG TABS 789313 BUSPIRONE HCL Inactive LEVOFLOXACIN 500 MG TABS 1 tab po qd LEVOFLOXACIN 500 MG TABS 289944 LEVOFLOXACIN Inactive PREDNISONE 20 MG TABS 1 tab po qd PREDNISONE 20 MG TABS 052778 PREDNISONE Inactive MIRALAX POWD 1 capfull once daily MIRALAX POWD 796089 POLYETHYLENE GLYCOL 3350 Inactive VERAPAMIL HCL ER 180 MG CR-TABS 1 tab po bid VERAPAMIL HCL ER 180 MG CR-TABS VERAPAMIL HCL Inactive LORATADINE 10 MG TABS 1 tab po qd LORATADINE 10 MG TABS 446057 LORATADINE Inactive LYRICA 50 MG CAPS 1 tab po TID LYRICA 50 MG CAPS PREGABALIN Inactive ZALEPLON 10 MG CAPS 1 cap po every other night ZALEPLON 10 MG CAPS 285391 ZALEPLON Inactive SAPHRIS 5 MG SUBL 1 tab po qd SAPHRIS 5 MG SUBL ASENAPINE MALEATE Inactive TRAZODONE HCL 50 MG TABS 1/2 tab po qd prn for anxiety TRAZODONE HCL 50 MG TABS 861038 TRAZODONE HCL Inactive LATUDA 20 MG TABS Take one by mouth daily LATUDA 20 MG TABS LURASIDONE HCL Inactive LISINOPRIL 20 MG TABS 1 tab po qd LISINOPRIL 20 MG TABS 713526 LISINOPRIL Inactive SAPHRIS 10 MG SUBL 1 [...] twice daily BACTRIM DS 800-160 MG TAB 178388 TRIMETHOPRIM-SULFAMETHOXAZOLE Inactive MULTIVITAMINS CAPS Take one by mouth daily MULTIVITAMINS CAPS MULTIPLE VITAMIN Inactive MELATONIN 3 MG CAPS 2 po q hs MELATONIN 3 MG CAPS 704412 MELATONIN Inactive KEFLEX 500 MG ORAL CAPS 1 cap QID by mouth KEFLEX 500 MG ORAL CAPS 993654 CEPHALEXIN Inactive CLINDAMYCIN HCL 150 MG CAPS 1 four times a day CLINDAMYCIN HCL 150 MG CAPS 771366 CLINDAMYCIN HCL Inactive DIFLUCAN 150 MG TAB 1 tablet by mouth daily DIFLUCAN 150 MG TAB 126621 FLUCONAZOLE Inactive PROZAC 20 MG CAP Take one by mouth daily PROZAC 20 MG CAP 266982 FLUOXETINE HCL Inactive IBUPROFEN 600 MG TAB 1 po TID PRN IBUPROFEN 600 MG TAB 112998 IBUPROFEN Inactive VYVANSE 40 MG CAPS 1 daily, VYVANSE 40 MG CAPS LISDEXAMFETAMINE DIMESYLATE Inactive TRAZODONE HCL 100 MG TAB take 1 at bedtime TRAZODONE HCL 100 MG TAB 672880 TRAZODONE HCL Inactive AMITRIPTYLINE HCL 100 MG TAB one at hs AMITRIPTYLINE HCL 100 MG TAB 624955 AMITRIPTYLINE HCL Inactive AMLODIPINE BESYLATE 5 MG TABS 1 tablet by mouth daily AMLODIPINE BESYLATE 5 MG TABS 136383 AMLODIPINE BESYLATE Inactive LATUDA 80 MG TABS Take one by mouth daily LATUDA 80 MG TABS LURASIDONE HCL Inactive SAPHRIS 5 MG SUBL 1 po bid SAPHRIS 5 MG SUBL ASENAPINE MALEATE Inactive PREDNISONE 20 MG TAB 2 tabs daily for 4 days, 1 tab daily for 4 days, 1/2 tab daily for 4 days PREDNISONE 20 MG TAB 744805 PREDNISONE Inactive AMBIEN 5 MG ORAL TABS 1 tab at bedtime AMBIEN 5 MG ORAL TABS 151798 ZOLPIDEM TARTRATE Inactive PROZAC 20 MG ORAL CAPS 1 tab daily PROZAC 20 MG ORAL CAPS 299870 FLUOXETINE HCL Inactive ABILIFY 15 MG ORAL TABS 1 tab daily ABILIFY 15 MG ORAL TABS 891121 ARIPIPRAZOLE Inactive METOPROLOL TARTRATE 50 MG TAB 1 po bid METOPROLOL TARTRATE 50 MG TAB 703745 METOPROLOL TARTRATE Inactive TRAMADOL HCL 50 MG TABS 1-2 po TID PRN Pain TRAMADOL HCL 50 MG TABS 346204 TRAMADOL HCL Inactive PIROXICAM 20 MG CAPS 1 cap po qd PRN Pain PIROXICAM 20 MG CAPS 877151 PIROXICAM Inactive MINIPRESS 2 MG CAPS 4 cap po at night MINIPRESS 2 MG CAPS 445403 PRAZOSIN HCL Inactive MIRALAX PACK 1 po qd PRN Constipation MIRALAX PACK 820480 POLYETHYLENE GLYCOL 3350 Inactive METOPROLOL TARTRATE 25 MG ORAL TABS 1/2 tablet twice daily for heart rate and blood pressure METOPROLOL TARTRATE 25 MG ORAL TABS 170841 METOPROLOL TARTRATE Inactive VALIUM 5 MG TAB Take 1-2 tablets daily VALIUM 5 MG TAB 326460 DIAZEPAM Inactive FLAGYL 500 MG TAB 1 tablet by mouth bid FLAGYL 500 MG TAB 767907 METRONIDAZOLE Inactive DICLOFENAC POTASSIUM TABS Take 1 tablet twice a day (pt. is not sure of the dose.) DICLOFENAC POTASSIUM TABS DICLOFENAC POTASSIUM TABS Inactive ZITHROMAX Z-EARNEST 250 MG TABS 2 today and then 1 daily for 4 days ZITHROMAX Z-EARNEST 250 MG TABS 5542012 AZITHROMYCIN Inactive PREDNISONE 20 MG TABS 2 daily for 5 days then 1 daily for 5 days PREDNISONE 20 MG TABS 455172 PREDNISONE Inactive PROAIR HFA 108 (90 BASE) MCG/ACT AERS 2 puffs four times a day as needed 2015 PROAIR HFA 108 (90 BASE) MCG/ACT AERS ALBUTEROL SULFATE Inactive HYDROCODONE-ACETAMINOPHEN 5-325 MG TABS 1 to 2 four times a day as needed for pain use until can be seen by specialist HYDROCODONE- ACETAMINOPHEN 5-325 MG TABS 645624 HYDROCODONE-ACETAMINOPHEN Inactive TESSALON PERLES 100 MG CAP 1 to 2 tablets by mouth 3 times daily as needed for cough TESSALON PERLES 100 MG CAP 731237 BENZONATATE Inactive CEFDINIR 300 MG CAPS by mouth twice a day CEFDINIR 300 MG CAPS 347588 CEFDINIR Inactive PREDNISONE 20 MG TAB 2 tabs daily for 3 days, 1 tab daily for 3 days, 1/2 tab daily for 2 days PREDNISONE 20 MG TAB 149924 PREDNISONE Inactive BACTRIM DS 800-160 MG TABS 1 po BID x 7 days BACTRIM DS 800-160 MG TABS 19820521 SULFAMETHOXAZOLE-TRIMETHOPRIM Inactive DIFLUCAN 150 MG TABS 1 pill every other day x 2 doses DIFLUCAN 150 MG TABS 553973 FLUCONAZOLE Inactive BACTRIM DS 800-160 MG TABS 1 pill by mouth twice daily BACTRIM DS 800-160 MG TABS 19820521 SULFAMETHOXAZOLE-TRIMETHOPRIM Inactive KEFLEX 500 MG CAP 1 po TID x 10 days KEFLEX 500 MG CAP 567654 CEPHALEXIN Inactive Advance Directives Directive Description Start Date DISCUSSED WITH PATIENT -- NO DECISION MADE Vital Signs Date Name Value Unit Range Description blood pressure, diastolic - 8462-4 63 mm[Hg] [...] E&M - 3141-9 284.5 [lb_av] Weight Measured Diagnostic Results Date Name [...] % 11.6-14.8 platelet count 394 10^3/MM^3 10*3/mm3 653-981 9678/01/11 leukocyte count, blood 13.8 10^3/MM^3 10*3/mm3 4.6-10.2 [...] Panel - Chemistry sodium, serum 139 mmol/L 667-217 3514/12/03 carbon dioxide, venous blood 28.5 mmol/L 21.0-32.0 [...] 5.5 % 4.3-6.0 cholesterol, serum 159 mg/dL 183-106 3878/12/03 triglyceride, serum, fasting 118 mg/dL 30-200 HDL [...] count 362 10^3/MM^3 10*3/mm3 142-424 Lab Report: Chlamydia/GC [id number] - Lab chlamydia DNA probe NOT DETECTED NOT DETECTED Lab Report: Chlamydia/GC [id number] - Microbiology Neisseria gonorrhoeae DNA probe NOT DETECTED NOT DETECTED Lab Report: Comp. Metabolic Panel - Chemistry sodium, serum 140 mmol/L 324-859 5278/08/08 carbon dioxide, venous blood 33.7 mmol/L 21.0-32.0 potassium, serum 5.0 mmol/L 3.5-5.2 chloride, serum 103 mmol/L 98-107 blood glucose 80 mg/dL 65-110 urea nitrogen, blood 13 mg/dL 7-18 creatinine, serum 0.88 mg/dL 0.55-1.30 alanine aminotransferase (SGPT), serum 54 U/L -78 aspartate aminotransferase (SGOT), serum 29 U/L 15-37 calcium, serum 9.7 mg/dL 8.5-10.1 bilirubin, serum, total 0.30 mg/dL 0.00-1.00 sodium, serum 139 mmol/L 892-340 7197/12/22 carbon dioxide, venous blood 26.8 mmol/L 21.0-32.0 potassium, serum 4.2 mmol/L 3.5-5.2 chloride, serum 103 mmol/L 98-107 blood glucose 115 mg/dL 65-110 urea nitrogen, blood 20 mg/dL 7-18 creatinine, serum 0.90 mg/dL 0.55-1.30 alanine aminotransferase (SGPT), serum 38 U/L aspartate aminotransferase (SGOT), serum 19 U/L 15-37 calcium, serum 8.6 mg/dL 8.5-10.1 bilirubin, serum, total 0.30 mg/dL 0.00-1.00 sodium, serum 139 mmol/L 057-916 2044/01/11 carbon dioxide, venous blood 26.6 mmol/L 21.0-32.0 potassium, serum 4.1 mmol/L 3.5-5.2 chloride, serum 100 mmol/L 98-107 blood glucose 86 mg/dL 65-110 urea nitrogen, blood 16 mg/dL 7-18 creatinine, serum 1.00 mg/dL 0.55-1.30 alanine aminotransferase (SGPT), serum 48 U/L -78 aspartate aminotransferase (SGOT), serum 17 U/L 15-37 calcium, serum 9.1 mg/dL 8.5-10.1 bilirubin, serum, total 0.40 mg/dL 0.00-1.00 sodium, serum 142 mmol/L 505-518 0593/06/08 carbon dioxide, venous blood 27.6 mmol/L 21.0-32.0 [...] Rate - Chemistry sodium, serum 139 mmol/L 343-443 9897/12/11 carbon dioxide, venous blood 25.4 mmol/L 21.0-32.0 potassium, serum 3.9 mmol/L 3.5-5.2 chloride, serum 105 mmol/L 98-107 blood glucose 98 mg/dL 65-110 urea nitrogen, blood 18 mg/dL 7-18 creatinine, serum 0.96 mg/dL 0.55-1.30 alanine aminotransferase (SGPT), serum 34 U/L -78 aspartate aminotransferase (SGOT), serum 12 U/L 15-37 [...] (L), Free Thyroxine (L) - Chemistry TSH 2.35 m[iU]/mL 0.36-3.74 thyroxine, serum, free [...] mg/dL Negative RBC, urine, dipstick 1+ Negative protein, [...] mg/dL Encounters Code Encounter Date Provider Facility CPT-78784 Level 3 Est. Patient 13:59: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 [facility] [place] CPT-77958 Level 3 Est. Patient 18:18:53 CDT Neeraj Collins MD [facility] CPT-15234 Level 3 Est. Patient 15:50:44 CDT Vishal Hui MD [facility] CPT-45608 Level 3 Est. Patient 11:36:17 CDT Ahmet Carbajal MD [facility] CPT-55231 Level 3 Est. Patient 13:29:16 CDT Vishal Hui MD [facility] CPT-58589 Level 3 Est. Patient 14:27:52 CDT Neeraj Collins MD [facility] CPT-21136 Level 3 Est. Patient 08:56: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 [facility] [place] CPT-24808 Level 4 Est. Patient 12:11:[address] [facility] [place] CPT-83019 Level 3 New Patient 16:53:37 CDT Albert Caldera MD [facility] CPT-13513 Level 3 Est. Patient 11:25:49 CDT Renzo Thornton DO [facility] CPT-32519 Level 3 Est. Patient 15:22:01 CDT Ahmet Carbajal MD [facility] CPT-01766 Level 4 Est. Patient 09:00:51 OFFAL WORKER Vishal Hui MD [facility] CPT-87814 Level 3 Est. Patient 11:37:33 OFFAL WORKER Vishal Hui MD [facility] CPT-32829 Level 3 Est. Patient 08:41:09 OFFAL WORKER Vishal Hui MD [facility] CPT-81508 Level 4 Est. Patient 10:19:35 OFFAL WORKER Vishal Hui MD [facility] CPT-70012 Level 3 Est. Patient 13:35:45 CDT Vishal Hui MD [facility] CPT-60245 Level 4 Est. Patient 10:08:37 CDT Vishal Hui MD [facility] CPT-15862 Level 3 Est. Patient 11:22:10 CDT Vishal Hui MD [facility] CPT-66166 Level 3 Est. Patient 11:03:32 CDT Sahara Rodriguez MD [facility]-70966 Level 3 Est. Patient 09:41:35 CDT Vishal Hui MD [facility] CPT-95283 Level 3 Est. Patient 12:00:41 CDT Neeraj Collins MD [facility]-27897 Level 3 Est. Patient 09:16:24 CDT Vishal Hui MD [facility] CPT-62140 Level 4 Est. Patient 13:59:09 CDT Neeraj Collins MD [facility]-52933 Level 3 Est. Patient 15:19:43 CDT Renzo Thornton DO [facility] CPT-38754 Level 3 Est. Patient 18:10:26 CDT Sahara Rodriguez MD [facility]-49664 Level 3 Est. Patient 14:49:50 CDT Vishal Hui MD [facility] CPT-77138 Level 4 Est. Patient 18:41:46 CDT Neeraj Collins MD [facility] CPT-64528 Level 4 Est. Patient 09:18:38 OFFAL WORKER Vishal Hui MD [facility] CPT-50295 Level 3 Est. Patient 14:43:55 OFFAL WORKER Vishal Hui MD [facility]-68403 Level 3 Est. Patient 15:26:33 OFFAL WORKER Sahara Rodriguez MD PhD [facility]-25036 Level 3 Est. Patient 10:32:14 OFFAL WORKER Vishal Hui MD [facility] CPT-57717 Level 3 Est. Patient 15:12:52 OFFAL WORKER Vishal Hui [facility] [facility] CPT-13462 Level 4 Est. Patient 09:19:27 CDT Vishal Hui MD [facility] CPT-23893 Level 3 Est. Patient 15:53:00 CDT Renzo Thornton [facility] CPT-69496 Level 3 Est. Patient 15:50:30 CDT Renzo Thornton [facility] CPT-50945 Level 3 Est. Patient 16:55:24 CDT Vishal Hui MD [facility] Procedures Code Procedure Name Date Entry Date Standard Description CPT-55281 UA w micro - LAB USE ONLY 16:21:13 CDT CPT-73117 Wet Mount - LAB USE ONLY 16:21:13 CDT CPT-14033 First Vx - Ix admin for Medicare patients 14:37:47 CDT CPT-16443 Fluzone Preservative Free Intramuscular Suspension 14:37 :47 CDT CPT-65874 Abx/Therapy Injection 13:54:22 CDT CPT-76523 Abx/Therapy Injection 08:47:09 CDT CPT-28572 Abx/Therapy Injection 13:29:56 CDT CPT-94878 Abx/Therapy Injection 08:36:16 CDT CPT-79378 Wet Mount - LAB USE ONLY 17:44:58 CDT CPT-72286 UA w micro - LAB USE ONLY 17:44:58 CDT CPT-09067 CMP - LAB USE ONLY 17:44:58 CDT CPT-69142 Venipuncture Draw Fee 17:44:58 CDT CPT-35733 Cervical Min 4V - XRAY USE ONLY 09:01:40 CDT CPT-58990 Chest 2V Frontal and Lat - XRAY USE ONLY 11:06:31 CDT CPT-82294 EKG Trac and Interp - XRAY USE ONLY 11:31:43 CDT 08/26 CPT-J3420 Vitamin B12 1000mcg (Cyanocobalamin) 08:10:26 OFFAL WORKER 04/12 CPT-58829 Abx/Therapy Injection 08:10:26 OFFAL WORKER CPT-G0438 Initial Annual Wellness Exam 19:01:01 OFFAL WORKER CPT-J3420 Vitamin B12 1000mcg (Cyanocobalamin) 16:57:46 CDT 08/14 CPT-65564 Recombivax HB Injection Suspension 5 MCG/0.5ML 08:37:50 OFFAL WORKER CPT-02513 Immunization Single Admin 08:37:50 OFFAL WORKER CPT-J3420 Vitamin B12 1000mcg (Cyanocobalamin) 08:32:16 OFFAL WORKER 03/11 CPT-20815 Abx/Therapy Injection 08:32:16 OFFAL WORKER CPT-05425 Chest 2V Frontal and Lat 11:46:38 OFFAL WORKER CPT-28378 Venipuncture Draw Fee 09:12:45 OFFAL WORKER CPT-J3420 Vitamin B12 1000mcg (Cyanocobalamin) 08:50:15 OFFAL WORKER 02/08 CPT-36331 Abx/Therapy Injection 08:50:15 OFFAL WORKER CPT-Cryo Cryotherapy 10:19:35 OFFAL WORKER CPT-000 Give Appropriate Flu Vaccine 09:22:16 CDT CPT-J3420 Vitamin B12 1000mcg (Cyanocobalamin) 19:08:57 CDT 01/11 CPT-12381 Abx/Therapy Injection 19:08:57 CDT CPT-J3420 Vitamin B12 1000mcg (Cyanocobalamin) 08:19:08 CDT 12/11 CPT-77242 Abx/Therapy Injection 08:19:08 CDT CPT-J3420 Vitamin B12 1000mcg (Cyanocobalamin) 14:48:00 CDT 11/09 CPT-03976 Abx/Therapy Injection 14:47:59 CDT CPT-J3420 Vitamin B12 1000mcg (Cyanocobalamin) 08:34:04 CDT 10/09 CPT-21102 Abx/Therapy Injection 08:34:04 CDT CPT-J3420 Vitamin B12 1000mcg (Cyanocobalamin) 09:18:52 CDT 09/11 CPT-47649 Abx/Therapy Injection 09:18:52 CDT CPT-J3420 Vitamin B12 1000mcg (Cyanocobalamin) 08:35:44 CDT 09/04 CPT-57675 Abx/Therapy Injection 08:35:44 CDT CPT-50949 Immunization Single Admin 11:07:16 CDT CPT-47383 Hepatitis B adult IM 11:07:16 CDT CPT-J3420 Vitamin B12 1000mcg (Cyanocobalamin) 11:00:49 CDT 08/28 CPT-J1040 Depo Medrol 80 mg (Methyl Prednisolone Acetate) 11:00: 49 CDT CPT-02656 Abx/Therapy Injection 11:00:49 CDT CPT-J1040 Depo Medrol 80 mg (Methyl Prednisolone Acetate) 09:16: 23 CDT CPT-J3420 Vitamin B12 1000mcg (Cyanocobalamin) 08:27:05 CDT 08/20 CPT-80933 Abx/Therapy Injection 08:27:05 CDT CPT-57654 Recombivax HB Injection Suspension 5 MCG/0.5ML 10:00:41 CDT CPT-83800 Administration single or combination vaccine inc oral 10 :00:41 CDT CPT-37545 Sono transvag pelvis non OB uterus ovaries cervix 16:36: 57 CDT CPT-81099 LS spine comp w obliq 09:50:55 OFFAL WORKER CPT-53133 Abd compl w upright 09:50:55 OFFAL WORKER CPT-J1100 Decadron 4mg (Dexamethasone) 15:51:24 OFFAL WORKER CPT-J1030 Depo Medrol 40 mg (Methyl Prednisolone Acetate) 15:51: 24 OFFAL WORKER CPT-62582 Abx/Therapy Injection 15:51:24 OFFAL WORKER CPT-J1100 Decadron 4mg (Dexamethasone) 15:26:33 OFFAL WORKER CPT-J1030 Depo Medrol 40 mg (Methyl Prednisolone Acetate) 15:26: 33 OFFAL WORKER CPT-37760 Sono retroperitoneal complete kidneys and bladder 17:15: 30 CDT CPT-84545 Abd compl w upright 16:09:25 CDT CPT-J1100 Decadron 8mg (Dexamethasone) 17:07:57 CDT CPT-52040 Abx/Therapy Injection 17:07:57 CDT CPT-J1100 Decadron 8mg (Dexamethasone) 16:55:24 CDT CPT-82800 Chest 2V Frontal and Lat 16:32:44 CDT
--- OUTSIDE RECORDS SUMMARY | 2016-11-04 10:55 | XMS REPORT | Clinical Summary ---
Author Author Admin, E Organization [employer] Address Unknown Phone Unavailable Allergies, Adverse Reactions, [...] at a health care facility Vaginitis 616.10 Active Sahara Rodriguez MD PhD Vaginitis and vulvovaginitis, unspecified Mrsa infection 041.12 Active Renzo Thornton DO Methicillin resistant Staphylococcus aureus infection in conditions classified elsewhere and of unspecified site Fatigue 780.79 Active Neeraj Collins MD Other malaise and fatigue Vitamin B12 deficiency 266.2 Active Marlena Trevino Other B-complex deficiencies Pneumonia, organism unspecified ICD-486 Inactive Vishal Hui MD Flank pain, right ICD-789.09 Inactive Vishal Hui MD Abdominal pain ICD-789.00 Inactive Vishal Hui MD Cellulitis ICD-682.9 Inactive Vishal Hui MD Pelvic pain ICD-625.9 Inactive Vishal Hui MD Abscess, skin ICD-682.9 Inactive Vishal Hui MD Medication List Medication Instructions Start Date Stop Date Generic Name NDC Status Provider Patient Instruction TIZANIDINE HCL 4 MG TABS 1 po q6hr PRN Muscle Spasm/Back Pain TIZANIDINE HCL 24622120822 Active Vishal Hui MD Active CLINDAMYCIN HCL 150 MG CAPS 1 four times a day CLINDAMYCIN HCL 24146042777 No Longer Active Neeraj Collins MD Active KEFLEX 500 MG ORAL CAPS 1 cap QID by mouth CEPHALEXIN 92428932859 No Longer Active Neeraj Collins MD Active DIFLUCAN 150 MG TABS 1 pill every other day x 2 doses FLUCONAZOLE 12998398318 No Longer Active Sahara Rodriguez MD PhD Active MELATONIN 3 MG CAPS 2 po q hs MELATONIN 34821155752 No Longer Active Sahara Rodriguez MD PhD Active MULTIVITAMINS CAPS Take one by mouth daily MULTIPLE VITAMIN 21913421600 No Longer Active Sahara Rodriguez MD PhD Active BACTRIM DS 800-160 MG TAB 1 tab by mouth twice daily TRIMETHOPRIM-SULFAMETHOXAZOLE 71259062403 No Longer Active Sahara Rodriguez MD PhD Active [employer] PROBIOTIC ORAL CHEW 2 daily po PROBIOTIC PRODUCT 26304834592 No Longer Active Sahara Rodriguez MD PhD Active IBUPROFEN 600 MG TAB 1 po TID PRN IBUPROFEN 18329595578 Active 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 Active BACTRIM DS 800-160 MG TABS 1 po BID x 7 days SULFAMETHOXAZOLE-TRIMETHOPRIM 72597824060 No Longer Active Vishal Hui MD Active CHANTIX STARTING MONTH EARNEST 0.5 MG X 11 & 1 MG X 42 TABS 0.5mg daily for 3 days , then 0.5mg BID for 4 days, then 1mg BID VARENICLINE TARTRATE 43667249411 No Longer Active TAMARA Gray Active METOPROLOL TARTRATE 50 MG TAB 1 po bid METOPROLOL TARTRATE 11492065505 Active Vishal Hui MD Active TRAZODONE HCL 100 MG TAB take 1 at bedtime TRAZODONE HCL 24757164785 Active Vishal Hui MD Active AMLODIPINE BESYLATE 5 MG TABS 1 tablet by mouth daily AMLODIPINE BESYLATE 90454951425 Active Vishal Hui MD Active VERAPAMIL HCL CR 120 MG TAB CR 1 po bid VERAPAMIL HCL 76395019120 No Longer Active Vishal Hui MD Active METOPROLOL SUCCINATE 50 MG TB24 1 tablet by mouth daily METOPROLOL SUCCINATE 21977682992 No Longer Active Vishal Hui MD Active TRAMADOL HCL 50 MG TABS 1-2 po TID PRN Pain TRAMADOL HCL 15378097831 Active Vishal Hui MD Active SAPHRIS 5 MG SUBL 1 po bid ASENAPINE MALEATE 83872783971 Active Vishal Hui MD Active SAPHRIS 10 MG SUBL 1 tab po bid ASENAPINE MALEATE 05397729651 No Longer Active Vishal Hui MD Active LISINOPRIL 20 MG TABS 1 tab po qd LISINOPRIL 19821505410 No Longer Active Vishal Hui MD Active BENADRYL 25 MG CAP 2 po tid prn anxiety DIPHENHYDRAMINE HCL 50954942335 Active Vishal Hui MD Active LATUDA 80 MG TABS Take one by mouth daily LURASIDONE HCL 30477470268 Active Vishal Hui MD Active LATUDA 20 MG TABS Take one by mouth daily LURASIDONE HCL 19465150662 No Longer Active Vishal Hui MD Active TRAZODONE HCL 50 MG TABS 1/2 tab po qd prn for anxiety TRAZODONE HCL 42386065892 No Longer Active Vishal Hui MD Active PIROXICAM 20 MG CAPS 1 cap po qd PRN Pain PIROXICAM 57153049758 Active Vishal Hui MD Active OMEPRAZOLE 20 MG TBEC 1 po q a.m. 30min prior to first food intake OMEPRAZOLE 77678947155 Active Vishal Hui MD Active RANITIDINE HCL 150 MG CAPS 1 twice a day RANITIDINE HCL 79101073355 Active Vishal Hui MD Active PROZAC 20 MG CAP Take one by mouth daily FLUOXETINE HCL 58009560049 Active Vishal Hui MD Active LINZESS 290 MCG CAPS Take one by mouth daily LINACLOTIDE 49282912402 Active Vishal Hui MD Active SAPHRIS 5 MG SUBL 1 tab po qd ASENAPINE MALEATE 70119952592 No Longer Active Vishal Hui MD Active ZALEPLON 10 MG CAPS 1 cap po every other night ZALEPLON 22202796111 No Longer Active Vishal Hui MD Active LYRICA 50 MG CAPS 1 tab po TID PREGABALIN 99470225548 No Longer Active Vishal Hui MD Active LORATADINE 10 MG TABS 1 tab po qd LORATADINE 96261340477 No Longer Active Vishal Hui MD Active VERAPAMIL HCL ER 180 MG CR-TABS 1 tab po bid VERAPAMIL HCL 45348301733 No Longer Active Vishal Hui MD Active MIRALAX POWD 1 capfull once daily POLYETHYLENE GLYCOL 3350 98456729647 No Longer Active Vishal Hui MD Active PREDNISONE 20 MG TABS 1 tab po qd PREDNISONE 97625243656 No Longer Active Renzo Thornton DO Active LEVOFLOXACIN 500 MG TABS 1 tab po qd LEVOFLOXACIN 39806039447 No Longer Active Renzo Thornton DO Active BUSPIRONE HCL 15 MG TABS 1 tab po TID BUSPIRONE HCL 95549973091 No Longer Active Renzo Thornton DO Active BENZTROPINE MESYLATE 1 MG TABS 1 tab po qd BENZTROPINE MESYLATE 25880688649 No Longer Active Renzo Thornton DO Active ATENOLOL 25 MG TABS 1 tab po qd ATENOLOL 86363115849 No Longer Active Renzo Thornton DO Active ESCITALOPRAM OXALATE 20 MG TABS 1 tab po qd ESCITALOPRAM OXALATE 78097035210 No Longer Active Renzo Thornton DO Active ADVAIR DISKUS 250-50 MCG/DOSE AEPB 1 puff BID FLUTICASONE-SALMETEROL 50240710490 No Longer Active Renzo Thornton DO Active PREDNISONE 20 MG TAB 2 tabs daily for 3 days, 1 tab daily for 3 days, 1/2 tab daily for 2 days PREDNISONE 40747119884 No Longer Active Vishal Hui MD Active CEFDINIR 300 MG CAPS by mouth twice a day CEFDINIR 79779020081 No Longer Active Vishal Hui MD Active LANSOPRAZOLE 30 MG CPDR 1 cap po qd LANSOPRAZOLE 96517240051 No Longer Active Vishal Hui MD Active TOPAMAX 25 MG TABS 1 tab po bid TOPIRAMATE 46714747155 Active Vishal Hui MD Active MINIPRESS 2 MG CAPS 1 cap po at night PRAZOSIN HCL 74139002706 Active Vishal Hui MD Active BACLOFEN 20 MG TABS 1 tab po tid BACLOFEN 33270833794 No Longer Active Vishal Hui MD Active ADVAIR DISKUS 250-50 MCG/DOSE AEPB 1 puff BID ADVAIR DISKUS 250-50 MCG/DOSE AEPB FLUTICASONE-SALMETEROL Inactive ESCITALOPRAM OXALATE 20 MG TABS 1 tab po qd ESCITALOPRAM OXALATE 20 MG TABS 199179 ESCITALOPRAM OXALATE Inactive ATENOLOL 25 MG TABS 1 tab po qd ATENOLOL 25 MG TABS 343998 ATENOLOL Inactive BENZTROPINE MESYLATE 1 MG TABS 1 tab po qd BENZTROPINE MESYLATE 1 MG TABS 266156 BENZTROPINE MESYLATE Inactive BUSPIRONE HCL 15 MG TABS 1 tab po TID BUSPIRONE HCL 15 MG TABS 242644 BUSPIRONE HCL Inactive LEVOFLOXACIN 500 MG TABS 1 tab po qd LEVOFLOXACIN 500 MG TABS 922720 LEVOFLOXACIN Inactive PREDNISONE 20 MG TABS 1 tab po qd PREDNISONE 20 MG TABS 799683 PREDNISONE Inactive MIRALAX POWD 1 capfull once daily MIRALAX POWD 988531 POLYETHYLENE GLYCOL 3350 Inactive VERAPAMIL HCL ER 180 MG CR-TABS 1 tab po bid VERAPAMIL HCL ER 180 MG CR-TABS VERAPAMIL HCL Inactive LORATADINE 10 MG TABS 1 tab po qd LORATADINE 10 MG TABS 596144 LORATADINE Inactive LYRICA 50 MG CAPS 1 tab po TID LYRICA 50 MG CAPS PREGABALIN Inactive ZALEPLON 10 MG CAPS 1 cap po every other night ZALEPLON 10 MG CAPS 913416 ZALEPLON Inactive SAPHRIS 5 MG SUBL 1 tab po qd SAPHRIS 5 MG SUBL ASENAPINE MALEATE Inactive TRAZODONE HCL 50 MG TABS 1/2 tab po qd prn for anxiety TRAZODONE HCL 50 MG TABS 363120 TRAZODONE HCL Inactive LATUDA 20 MG TABS Take one by mouth daily LATUDA 20 MG TABS LURASIDONE HCL Inactive LISINOPRIL 20 MG TABS 1 tab po qd LISINOPRIL 20 MG TABS 217103 LISINOPRIL Inactive SAPHRIS 10 MG SUBL 1 [...] po q hs MELATONIN 3 MG CAPS 548861 MELATONIN Inactive KEFLEX 500 MG ORAL CAPS 1 cap QID by mouth KEFLEX 500 MG ORAL CAPS 818773 CEPHALEXIN Inactive CLINDAMYCIN HCL 150 MG CAPS 1 four times a day CLINDAMYCIN HCL 150 MG CAPS 167304 CLINDAMYCIN HCL Inactive CEFDINIR 300 MG CAPS by mouth twice a day CEFDINIR 300 MG CAPS 502700 CEFDINIR Inactive PREDNISONE 20 MG TAB 2 tabs daily for 3 days, 1 tab daily for 3 days, 1/2 tab daily for 2 days PREDNISONE 20 MG TAB 933391 PREDNISONE Inactive BACTRIM DS 800-160 MG TABS 1 po BID x 7 days BACTRIM DS 800-160 MG TABS SULFAMETHOXAZOLE-TRIMETHOPRIM Inactive DIFLUCAN 150 MG TABS 1 pill every other day x 2 doses DIFLUCAN 150 MG TABS 820279 FLUCONAZOLE Inactive Vital Signs Date Name Value Unit Range Description blood pressure, diastolic - 8462-4 76 mm[Hg] [...] outside labs entered on flowsheet - Chemistry blood glucose 86 mg/dL creatinine, serum 0.89 mg/dL aspartate aminotransferase (SGOT), serum 18 U/L alanine aminotransferase (SGPT), serum 38 U/L alkaline phosphatase, serum 119 U/L potassium, serum 4.0 mmol/L sodium, serum 139 mmol/L Chart Maintenance: outside labs entered on flowsheet - Hematology platelet count 364 10*3/mm3 hemoglobin, blood 13.2 g/dL leukocyte count, blood 8.9 10*3/mm3 Lab Report: CBC, Comp. Metabolic Panel, Free Thyroxine (L), Thyroid Stim ... - Chemistry sodium, serum 140 mmol/L 854-337 4271/05/28 potassium, serum 4.2 mmol/L 3.5-5.2 chloride, serum [...] Comp. Metabolic Panel - Chemistry sodium, serum 141 mmol/L 178-547 3736 creatinine, serum 0.90 mg/dL 0.60-1.30 alanine aminotransferase (SGPT), serum 28 U/L 12-78 aspartate aminotransferase (SGOT), serum 13 U/L 15-37 calcium, serum 8.5 mg/dL 8.5-10.1 bilirubin, serum, total 0.20 mg/dL 0.00-1.00 potassium, serum 4.3 mmol/L 3.5-5.2 chloride, serum 106 mmol/L 98-107 carbon dioxide, venous blood 25.7 mmol/L 21.0-32.0 blood glucose 119 mg/dL 65-110 urea nitrogen, blood 22 mg/dL 7-18 Lab Report: Comp. Metabolic Panel, Lipid Panel - Chemistry sodium, serum 139 mmol/L 379-039 7489/12/31 creatinine, serum 1.00 mg/dL 0.60-1.30 alanine aminotransferase (SGPT), serum 41 U/L 12-78 aspartate aminotransferase (SGOT), serum 17 U/L 15-37 calcium, serum 8.6 mg/dL 8.5-10.1 bilirubin, serum, total 0.30 mg/dL 0.00-1.00 cholesterol, serum 108 mg/dL 651-786 4529/12/31 triglyceride, serum, fasting 120 mg/dL 30-200 HDL cholesterol, serum 28 mg/dL 32-96 LDL cholesterol, serum 56 mg/dL 0-130 potassium, serum 4.8 mmol/L 3.5-5.2 chloride, serum 106 mmol/L 98-107 carbon dioxide, venous blood 24.3 mmol/L 21.0-32.0 blood glucose 90 mg/dL 65-110 urea nitrogen, blood 16 mg/dL 7-18 Lab Report: MICROALBUMIN - Chemistry albumin/creatinine ratio, urine < 30 mg/g mg/g{creat} 0-29 Lab Report: MICROALBUMIN - Lab microalbumin, urine 10 0-19 Lab Report: UADIP W/MICRO, AUTO, [facility] [place] - Chemistry RBC, urine, dipstick Negative Negative human chorionic gonadotropin, urine, qualitative (urine test) Negative Negative protein, total urine random Negative mg/dL Negative Lab Report: UADIP W/MICRO, AUTO, [facility] [place] - Urinalysis glucose, urine, semiquantitative Negative Negative appearance, urine Clear Clear specific gravity, urine 1.025 1.000-1.030 pH, urine, semiquantitative 7.0 5.0-8.5 urobilinogen, urine, semiquantitative (dipstick) 0.2 Normal leukocyte esterase, urine, by dipstick Negative Negative nitrite, urine, semiquantitative Negative Negative urine color Yellow Colorless;Lightyellow;Straw;Yellow ketones, urine, by test strip Negative Negative bilirubin, urine Negative Negative Lab Report: Varicella-Zoater Inga IgG,IgM/57862, HEP Be Antibody/556, RUB ... - Serology rubella antibody, serum, IgG 2.88 Encounters Code Encounter Date Provider Facility [place] [address] Level 3 Est. Patient 09:16:24 CDT Vishal Hui MD [facility]-20381 Level 4 Est. Patient 13:59:09 CDT Neeraj Collins MD [facility] Level 3 Est. Patient 15:19:43 CDT Renzo Thornton [facility]-[address]50 Level 3 Est. Patient 18:10:26 CDT Sahara Rodriguez MD [place] [id number] Level 3 Est. Patient 14:49:50 CDT Vishal Hui MD [facility]35 Level 4 Est. Patient 18:41:46 CDT Neeraj Collins MD [facility]-43322 Level 4 Est. Patient 09:18:38 CONTROL OPERATOR FLOW COAT Vishal Hui MD [facility]-[address]57 Level 3 Est. Patient 14:43:55 CONTROL OPERATOR FLOW COAT Vishal Hui MD [facility]70588 Level 3 Est. Patient 15:26:33 CONTROL OPERATOR FLOW COAT Sahara Rodriguez MD PhD [facility]76496 Level 3 Est. Patient 10:32:14 CONTROL OPERATOR FLOW COAT Vishal Hui MD [facility]26997 Level 3 Est. Patient 15:12:52 CONTROL OPERATOR FLOW COAT Vishal Hui MD [facility]-41063 Level 4 Est. Patient 09:19:27 CDT Vishal Hui MD [facility]85 Level 3 Est. Patient 15:53:00 CDT Renzo Thornton DO [facility]95087 Level 3 Est. Patient 15:50:30 CDT Renzo Thornton DO [facility] CPT-21379 Level 3 Est. Patient 16:55:24 CDT Vishal Hui MD [facility] Procedures Code Procedure Name Date Entry Date Standard Description CPT-J3420 Vitamin B12 1000mcg (Cyanocobalamin) 09:18:52 CDT 09/11 CPT-12710 Abx/Therapy Injection 09:18:52 CDT CPT-J3420 Vitamin B12 1000mcg (Cyanocobalamin) 08:35:44 CDT 09/04 CPT-37294 Abx/Therapy Injection 08:35:44 CDT CPT-10500 Immunization Single Admin 11:07:16 CDT CPT-26512 Hepatitis B adult IM 11:07:16 CDT CPT-J3420 Vitamin B12 1000mcg (Cyanocobalamin) 11:00:49 CDT 08/28 CPT-J1040 Depo Medrol 80 mg (Methyl Prednisolone Acetate) 11:00: 49 CDT CPT-34317 Abx/Therapy Injection 11:00:49 CDT CPT-J1040 Depo Medrol 80 mg (Methyl Prednisolone Acetate) 09:16: 23 CDT CPT-J3420 Vitamin B12 1000mcg (Cyanocobalamin) 08:27:05 CDT 08/20 CPT-88397 Abx/Therapy Injection 08:27:05 CDT CPT-30486 Recombivax HB Injection Suspension 5 MCG/0.5ML 10:00:41 CDT CPT-81360 Administration single or combination vaccine inc oral 10 :00:41 CDT CPT-09001 Sono transvag pelvis non OB uterus ovaries cervix 16:36: 57 CDT CPT-17007 LS spine comp w obliq 09:50:55 CONTROL OPERATOR FLOW COAT CPT-58173 Abd compl w upright 09:50:55 CONTROL OPERATOR FLOW COAT CPT-J1100 Decadron 4mg (Dexamethasone) 15:51:24 CONTROL OPERATOR FLOW COAT CPT-J1030 Depo Medrol 40 mg (Methyl Prednisolone Acetate) 15:51: 24 CONTROL OPERATOR FLOW COAT CPT-55848 Abx/Therapy Injection 15:51:24 CONTROL OPERATOR FLOW COAT CPT-J1100 Decadron 4mg (Dexamethasone) 15:26:33 CONTROL OPERATOR FLOW COAT CPT-J1030 Depo Medrol 40 mg (Methyl Prednisolone Acetate) 15:26: 33 CONTROL OPERATOR FLOW COAT CPT-18976 Sono retroperitoneal complete kidneys and bladder 17:15: 30 CDT CPT-49557 Abd compl w upright 16:09:25 CDT CPT-J1100 Decadron 8mg (Dexamethasone) 17:07:57 CDT CPT-23826 Abx/Therapy Injection 17:07:57 CDT CPT-J1100 Decadron 8mg (Dexamethasone) 16:55:24 CDT CPT-80035 Chest 2V Frontal and Lat 16:32:44 CDT
--- OUTSIDE RECORDS SUMMARY | 2016-11-04 10:58 | XMS REPORT | Clinical Summary ---
Author Author Admin, Premise Organization [facility] Address Unknown Phone Unavailable Allergies, Adverse Reactions, [...] Low back pain, chronic 724.2 Inactive Vishal Hiu MD Lumbago Back pain, lumbar, with radiculopathy [...] Shortness of breath 786.05 Active Fabiola Johnson ECOLOGIST TECHNICIAN Shortness of breath Nocturnal hypoxia 799.02 Active Fabiola Johnson ECOLOGIST TECHNICIAN Hypoxemia Anxiety Disorder ICD-300.00 Inactive Vishal Hui [...] Generic Name NDC Status Provider Patient Instruction FLUTICASONE PROPIONATE 50 MCG/ACT SUSP 2 sprays each nostril daily before bed. FLUTICASONE PROPIONATE 53905429245 Active Fabiola Johnson APRN Active VERAPAMIL HCL ER 120 MG ORAL CR-TABS 1 tab po daily for blood pressure 09/27 VERAPAMIL HCL 70425205588 Active Fabiola Johnson APRN Active ADZENYS XR-ODT 6.3 MG ORAL TBED 1 tab po daily for ADHD AMPHETAMINE 05827494736 Active Fabiola Johnson APRN Active BENADRYL 25 MG CAP 4 po at bedtime for insomnia DIPHENHYDRAMINE HCL 31869308828 Active Fabiola Johnson APRN Active KLONOPIN 1 MG ORAL TABS 1 tab po TID CLONAZEPAM 51311909410 Active Fabiola Johnson APRN Active VALIUM 5 MG TAB Take 1-2 tablets daily DIAZEPAM 47865729325 No Longer Active Fabiola Johnson APRN Active METOPROLOL TARTRATE 25 MG ORAL TABS 1/2 tablet twice daily for heart rate and blood pressure METOPROLOL TARTRATE 79001193000 No Longer Active Fabiola Johnson APRN Active MIRALAX ORAL POWD 17GMS DAILY IN WATER POLYETHYLENE GLYCOL 3350 93836089360 Active Vishal Hui MD Active VIIBRYD 10 MG ORAL TABS Take 1 tablet once a day VILAZODONE HCL 93269130628 Active Ahmet Carbajal MD Active DICLOFENAC POTASSIUM TABS Take 1 tablet twice a day (pt. is not sure of the dose.) DICLOFENAC POTASSIUM TABS 44228113079 Active Ahmet Carbajal MD Active MIRALAX PACK 1 po qd PRN Constipation POLYETHYLENE GLYCOL 3350 36074282991 No Longer Active Ahmet Carbajal MD Active MINIPRESS 2 MG CAPS 4 cap po at night PRAZOSIN HCL 23410673464 No Longer Active Ahmet Carbajal MD Active PIROXICAM 20 MG CAPS 1 cap po qd PRN Pain PIROXICAM 40948315060 No Longer Active Ahmet Carbajal MD Active TRAMADOL HCL 50 MG TABS 1-2 po TID PRN Pain TRAMADOL HCL 82954858244 No Longer Active Ahmet Carbajal MD Active METOPROLOL TARTRATE 50 MG TAB 1 po bid METOPROLOL TARTRATE 03293006670 No Longer Active Ahmet Carbajal MD Active ABILIFY 15 MG ORAL TABS 1 tab daily ARIPIPRAZOLE 48940216879 No Longer Active Ahmet Carbajal MD Active PROZAC 20 MG ORAL CAPS 1 tab daily FLUOXETINE HCL 35467839167 No Longer Active Ahmet Carbajal MD Active AMBIEN 5 MG ORAL TABS 1 tab at bedtime ZOLPIDEM TARTRATE 80910342651 No Longer Active Ahmet Carbajal MD Active PREDNISONE 20 MG TAB 2 tabs daily for 4 days, 1 tab daily for 4 days, 1/2 tab daily for 4 days PREDNISONE 37442943653 No Longer Active Ahmet Carbajal MD Active KEFLEX 500 MG CAP 1 po TID x 10 days CEPHALEXIN 03421249351 No Longer Active Vishal Hui MD Active ABILIFY MAINTENA 400 MG IM SUSR Injection once per month ARIPIPRAZOLE 77746223066 Active Juliet Kimbrough APRN Active IMITREX 50 MG ORAL TABS 1/2 tab every 6 hours prn SUMATRIPTAN SUCCINATE 34707970721 Active 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 APRN Active TOPAMAX 50 MG ORAL TABS 1 tab twice daily TOPIRAMATE 59682051243 Active Vishal Hui MD Active SAPHRIS 5 MG SUBL 1 po bid ASENAPINE MALEATE 08055706721 No Longer Active 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 APRN Active LATUDA 80 MG TABS Take one by mouth daily LURASIDONE HCL 12708880964 No Longer Active 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 APRN Active AMLODIPINE BESYLATE 5 MG TABS 1 tablet by mouth daily AMLODIPINE BESYLATE 11676998714 No Longer Active 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 APRN Active AMITRIPTYLINE HCL 100 MG TAB one at hs AMITRIPTYLINE HCL 77687673797 No Longer Active Vishal uHi MD Active TRAZODONE HCL 100 MG TAB take 1 at bedtime TRAZODONE HCL 25391882354 No Longer Active Vishal Hui MD Active VYVANSE 40 MG CAPS 1 daily, LISDEXAMFETAMINE DIMESYLATE 20144097426 No Longer Active Vishal Hui MD Active IBUPROFEN 600 MG TAB 1 po TID PRN IBUPROFEN 26671118503 No Longer Active Vishal Hui MD Active PROZAC 20 MG CAP Take one by mouth daily FLUOXETINE HCL 55046691697 No Longer Active Vishal Hui MD Active ZOFRAN 4 MG TABS 1 po q6hr PRN Nausea ONDANSETRON HCL Active Vishal Hui MD Active BACTRIM DS 800-160 MG TABS 1 pill by mouth twice daily SULFAMETHOXAZOLE-TRIMETHOPRIM 44770149247 No Longer Active Sahara Rodriguez MD PhD Active DIFLUCAN 150 MG TAB 1 tablet by mouth daily FLUCONAZOLE 01412783238 No Longer Active Vishal Hui MD Active TIZANIDINE HCL 4 MG TABS 1 po q6hr PRN Muscle Spasm/Back Pain TIZANIDINE HCL 51125187182 Active 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 APRN Active CLINDAMYCIN HCL 150 MG CAPS 1 four times a day CLINDAMYCIN HCL 42473220831 No Longer Active Neeraj Collins MD Active KEFLEX 500 MG ORAL CAPS 1 cap QID by mouth CEPHALEXIN 26867908072 No Longer Active Neeraj Collins MD Active DIFLUCAN 150 MG TABS 1 pill every other day x 2 doses FLUCONAZOLE 56519901020 No Longer Active Sahara Rodriguez MD PhD Active MELATONIN 3 MG CAPS 2 po q hs MELATONIN 22419568258 No Longer Active Sahara Rodriguez MD PhD Active MULTIVITAMINS CAPS Take one by mouth daily MULTIPLE VITAMIN 16199450724 No Longer Active Sahara Rodriguez MD PhD Active BACTRIM DS 800-160 MG TAB 1 tab by mouth twice daily TRIMETHOPRIM-SULFAMETHOXAZOLE 39966724775 No Longer Active Sahara Rodriguez MD PhD Active [facility] PROBIOTIC ORAL CHEW 2 daily po PROBIOTIC PRODUCT 88085855950 No Longer Active Sahara Rodriguez MD PhD Active BACTRIM DS 800-160 MG TABS 1 po BID x 7 days SULFAMETHOXAZOLE-TRIMETHOPRIM 98646726306 No Longer Active Vishal Hui MD Active CHANTIX STARTING MONTH EARNEST 0.5 MG X 11 & 1 MG X 42 TABS 0.5mg daily for 3 days , then 0.5mg BID for 4 days, then 1mg BID VARENICLINE TARTRATE 77023132264 No Longer Active TAMARA Gray Active VERAPAMIL HCL CR 120 MG TAB CR 1 po bid VERAPAMIL HCL 71917904213 No Longer Active Vishal Hui MD Active METOPROLOL SUCCINATE 50 MG TB24 1 tablet by mouth daily METOPROLOL SUCCINATE 82188443788 No Longer Active Vishal Hui MD Active SAPHRIS 10 MG SUBL 1 tab po bid ASENAPINE MALEATE 12026379690 No Longer Active Vishal Hui MD Active LISINOPRIL 20 MG TABS 1 tab po qd LISINOPRIL 15613379077 No Longer Active Vishal Hui MD Active LATUDA 20 MG TABS Take one by mouth daily LURASIDONE HCL 38897877000 No Longer Active Vishal Hui MD Active TRAZODONE HCL 50 MG TABS 1/2 tab po qd prn for anxiety TRAZODONE HCL 86652181538 No Longer Active Vishal Hui MD Active OMEPRAZOLE 20 MG TBEC 1 po q a.m. 30min prior to first food intake OMEPRAZOLE 77497162299 Active Vishal Hui MD Active RANITIDINE HCL 150 MG CAPS 1 twice a day RANITIDINE HCL 39324929855 Active 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 APRN Active LINZESS 290 MCG CAPS Take one by mouth daily LINACLOTIDE 66296872998 No Longer Active Vishal Hui MD Active SAPHRIS 5 MG SUBL 1 tab po qd ASENAPINE MALEATE 80870391614 No Longer Active Vishal Hui MD Active ZALEPLON 10 MG CAPS 1 cap po every other night ZALEPLON 98882994335 No Longer Active Vishal Hui MD Active LYRICA 50 MG CAPS 1 tab po TID PREGABALIN 44420296903 No Longer Active Vishal Hui MD Active LORATADINE 10 MG TABS 1 tab po qd LORATADINE 98021640052 No Longer Active Vishal Hui MD Active VERAPAMIL HCL ER 180 MG CR-TABS 1 tab po bid VERAPAMIL HCL 69639571133 No Longer Active Vishal Hui MD Active MIRALAX POWD 1 capfull once daily POLYETHYLENE GLYCOL 3350 76801825415 No Longer Active Vishal Hui MD Active PREDNISONE 20 MG TABS 1 tab po qd PREDNISONE 66042695813 No Longer Active Renzo Thornton DO Active LEVOFLOXACIN 500 MG TABS 1 tab po qd LEVOFLOXACIN 18035161159 No Longer Active Renzo Thornton DO Active BUSPIRONE HCL 15 MG TABS 1 tab po TID BUSPIRONE HCL 21758086637 No Longer Active Renzo Thornton DO Active BENZTROPINE MESYLATE 1 MG TABS 1 tab po qd BENZTROPINE MESYLATE 73214533166 No Longer Active Renzo Thornton DO Active ATENOLOL 25 MG TABS 1 tab po qd ATENOLOL 84669049929 No Longer Active Renzo Thornton DO Active ESCITALOPRAM OXALATE 20 MG TABS 1 tab po qd ESCITALOPRAM OXALATE 54689575350 No Longer Active Renzo Thornton DO Active ADVAIR DISKUS 250-50 MCG/DOSE AEPB 1 puff BID FLUTICASONE-SALMETEROL 17517835245 No Longer Active Renzo Thornton DO Active PREDNISONE 20 MG TAB 2 tabs daily for 3 days, 1 tab daily for 3 days, 1/2 tab daily for 2 days PREDNISONE 13436376096 No Longer Active Vishal Hui MD Active CEFDINIR 300 MG CAPS by mouth twice a day CEFDINIR 26545761503 No Longer Active Vishal Hui MD Active LANSOPRAZOLE 30 MG CPDR 1 cap po qd LANSOPRAZOLE 07948368045 No Longer Active Vishal Hui MD Active BACLOFEN 20 MG TABS 1 tab po tid BACLOFEN 97332706425 No Longer Active Vishal Hui MD Active ADVAIR DISKUS 250-50 MCG/DOSE AEPB 1 puff BID ADVAIR DISKUS 250-50 MCG/DOSE AEPB FLUTICASONE-SALMETEROL Inactive ESCITALOPRAM OXALATE 20 MG TABS 1 tab po qd ESCITALOPRAM OXALATE 20 MG TABS 686433 ESCITALOPRAM OXALATE Inactive ATENOLOL 25 MG TABS 1 tab po qd ATENOLOL 25 MG TABS 198196 ATENOLOL Inactive BENZTROPINE MESYLATE 1 MG TABS 1 tab po qd BENZTROPINE MESYLATE 1 MG TABS 139305 BENZTROPINE MESYLATE Inactive BUSPIRONE HCL 15 MG TABS 1 tab po TID BUSPIRONE HCL 15 MG TABS 826359 BUSPIRONE HCL Inactive LEVOFLOXACIN 500 MG TABS 1 tab po qd LEVOFLOXACIN 500 MG TABS 221367 LEVOFLOXACIN Inactive PREDNISONE 20 MG TABS 1 tab po qd PREDNISONE 20 MG TABS 554059 PREDNISONE Inactive MIRALAX POWD 1 capfull once daily MIRALAX POWD 201989 POLYETHYLENE GLYCOL 3350 Inactive VERAPAMIL HCL ER 180 MG CR-TABS 1 tab po bid VERAPAMIL HCL ER 180 MG CR-TABS VERAPAMIL HCL Inactive LORATADINE 10 MG TABS 1 tab po qd LORATADINE 10 MG TABS 148967 LORATADINE Inactive LYRICA 50 MG CAPS 1 tab po TID LYRICA 50 MG CAPS PREGABALIN Inactive ZALEPLON 10 MG CAPS 1 cap po every other night ZALEPLON 10 MG CAPS 763881 ZALEPLON Inactive SAPHRIS 5 MG SUBL 1 tab po qd SAPHRIS 5 MG SUBL ASENAPINE MALEATE Inactive TRAZODONE HCL 50 MG TABS 1/2 tab po qd prn for anxiety TRAZODONE HCL 50 MG TABS 680370 TRAZODONE HCL Inactive LATUDA 20 MG TABS Take one by mouth daily LATUDA 20 MG TABS LURASIDONE HCL Inactive LISINOPRIL 20 MG TABS 1 tab po qd LISINOPRIL 20 MG TABS 348980 LISINOPRIL Inactive SAPHRIS 10 MG SUBL 1 [...] twice daily BACTRIM DS 800-160 MG TAB 342644 TRIMETHOPRIM-SULFAMETHOXAZOLE Inactive MULTIVITAMINS CAPS Take one by mouth daily MULTIVITAMINS CAPS MULTIPLE VITAMIN Inactive MELATONIN 3 MG CAPS 2 po q hs MELATONIN 3 MG CAPS 733204 MELATONIN Inactive KEFLEX 500 MG ORAL CAPS 1 cap QID by mouth KEFLEX 500 MG ORAL CAPS 918823 CEPHALEXIN Inactive CLINDAMYCIN HCL 150 MG CAPS 1 four times a day CLINDAMYCIN HCL 150 MG CAPS 951438 CLINDAMYCIN HCL Inactive DIFLUCAN 150 MG TAB 1 tablet by mouth daily DIFLUCAN 150 MG TAB 869954 FLUCONAZOLE Inactive PROZAC 20 MG CAP Take one by mouth daily PROZAC 20 MG CAP 608696 FLUOXETINE HCL Inactive IBUPROFEN 600 MG TAB 1 po TID PRN IBUPROFEN 600 MG TAB 620134 IBUPROFEN Inactive VYVANSE 40 MG CAPS 1 daily, VYVANSE 40 MG CAPS LISDEXAMFETAMINE DIMESYLATE Inactive TRAZODONE HCL 100 MG TAB take 1 at bedtime TRAZODONE HCL 100 MG TAB 919991 TRAZODONE HCL Inactive AMITRIPTYLINE HCL 100 MG TAB one at hs AMITRIPTYLINE HCL 100 MG TAB 520042 AMITRIPTYLINE HCL Inactive AMLODIPINE BESYLATE 5 MG TABS 1 tablet by mouth daily AMLODIPINE BESYLATE 5 MG TABS 507267 AMLODIPINE BESYLATE Inactive LATUDA 80 MG TABS Take one by mouth daily LATUDA 80 MG TABS LURASIDONE HCL Inactive SAPHRIS 5 MG SUBL 1 po bid SAPHRIS 5 MG SUBL ASENAPINE MALEATE Inactive PREDNISONE 20 MG TAB 2 tabs daily for 4 days, 1 tab daily for 4 days, 1/2 tab daily for 4 days PREDNISONE 20 MG TAB 168467 PREDNISONE Inactive AMBIEN 5 MG ORAL TABS 1 tab at bedtime AMBIEN 5 MG ORAL TABS 658907 ZOLPIDEM TARTRATE Inactive PROZAC 20 MG ORAL CAPS 1 tab daily PROZAC 20 MG ORAL CAPS 712051 FLUOXETINE HCL Inactive ABILIFY 15 MG ORAL TABS 1 tab daily ABILIFY 15 MG ORAL TABS 774741 ARIPIPRAZOLE Inactive METOPROLOL TARTRATE 50 MG TAB 1 po bid METOPROLOL TARTRATE 50 MG TAB 161018 METOPROLOL TARTRATE Inactive TRAMADOL HCL 50 MG TABS 1-2 po TID PRN Pain TRAMADOL HCL 50 MG TABS 886179 TRAMADOL HCL Inactive PIROXICAM 20 MG CAPS 1 cap po qd PRN Pain PIROXICAM 20 MG CAPS 067387 PIROXICAM Inactive MINIPRESS 2 MG CAPS 4 cap po at night MINIPRESS 2 MG CAPS 531166 PRAZOSIN HCL Inactive MIRALAX PACK 1 po qd PRN Constipation MIRALAX PACK 801989 POLYETHYLENE GLYCOL 3350 Inactive METOPROLOL TARTRATE 25 MG ORAL TABS 1/2 tablet twice daily for heart rate and blood pressure METOPROLOL TARTRATE 25 MG ORAL TABS 025132 METOPROLOL TARTRATE Inactive VALIUM 5 MG TAB Take 1-2 tablets daily VALIUM 5 MG TAB 796212 DIAZEPAM Inactive CEFDINIR 300 MG CAPS by mouth twice a day CEFDINIR 300 MG CAPS 082233 CEFDINIR Inactive PREDNISONE 20 MG TAB 2 tabs daily for 3 days, 1 tab daily for 3 days, 1/2 tab daily for 2 days PREDNISONE 20 MG TAB 721811 PREDNISONE Inactive BACTRIM DS 800-160 MG TABS 1 po BID x 7 days BACTRIM DS 800-160 MG TABS 142377 SULFAMETHOXAZOLE-TRIMETHOPRIM Inactive DIFLUCAN 150 MG TABS 1 pill every other day x 2 doses DIFLUCAN 150 MG TABS 218784 FLUCONAZOLE Inactive BACTRIM DS 800-160 MG TABS 1 pill by mouth twice daily BACTRIM DS 800-160 MG TABS 904845 SULFAMETHOXAZOLE-TRIMETHOPRIM Inactive KEFLEX 500 MG CAP 1 po TID x 10 days KEFLEX 500 MG CAP 223284 CEPHALEXIN Inactive Advance Directives Directive Description Start [...] % 11.6-14.8 platelet count 394 10^3/MM^3 10*3/mm3 103-231 8270/01/11 leukocyte count, blood 13.8 10^3/MM^3 10*3/mm3 4.6-10.2 [...] Panel - Chemistry sodium, serum 139 mmol/L 845-143 1002/12/03 carbon dioxide, venous blood 28.5 mmol/L 21.0-32.0 [...] 5.5 % 4.3-6.0 cholesterol, serum 159 mg/dL 540-635 9373/12/03 triglyceride, serum, fasting 118 mg/dL 30-200 HDL [...] Panel - Chemistry sodium, serum 139 mmol/L 375-317 4928/01/11 carbon dioxide, venous blood 26.6 mmol/L 21.0-32.0 potassium, serum 4.1 mmol/L 3.5-5.2 chloride, serum 100 mmol/L 98-107 blood glucose 86 mg/dL 65-110 urea nitrogen, blood 16 mg/dL 7-18 creatinine, serum 1.00 mg/dL 0.55-1.30 alanine aminotransferase (SGPT), serum 48 U/L aspartate aminotransferase (SGOT), serum 17 U/L 15-37 calcium, serum 9.1 mg/dL 8.5-10.1 bilirubin, serum, total 0.40 mg/dL 0.00-1.00 sodium, serum 139 mmol/L 463-122 5559/12/22 carbon dioxide, venous blood 26.8 mmol/L 21.0-32.0 potassium, serum 4.2 mmol/L 3.5-5.2 chloride, serum 103 mmol/L 98-107 blood glucose 115 mg/dL 65-110 urea nitrogen, blood 20 mg/dL 7-18 creatinine, serum 0.90 mg/dL 0.55-1.30 alanine aminotransferase (SGPT), serum 38 U/L -78 aspartate aminotransferase (SGOT), serum 19 U/L 15-37 calcium, serum 8.6 mg/dL 8.5-10.1 bilirubin, serum, total 0.30 mg/dL 0.00-1.00 sodium, serum 142 mmol/L 589-643 7702/06/08 carbon dioxide, venous blood 27.6 mmol/L 21.0-32.0 potassium, serum 4.0 mmol/L 3.5-5.2 chloride, serum 105 mmol/L 98-107 blood glucose 95 mg/dL 65-110 urea nitrogen, blood 8 mg/dL 7-18 creatinine, serum 0.75 mg/dL 0.55-1.30 alanine aminotransferase (SGPT), serum 49 U/L 78 aspartate aminotransferase (SGOT), serum 28 U/L 15-37 calcium, serum 9.4 mg/dL 8.5-10.1 bilirubin, serum, total 0.30 mg/dL 0.00-1.00 Lab Report: Comp. Metabolic Panel, Erythrocyte Sed Rate - Chemistry sodium, serum 139 mmol/L 645-857 8502/12/11 carbon dioxide, venous blood 25.4 mmol/L 21.0-32.0 potassium, serum 3.9 mmol/L 3.5-5.2 chloride, serum 105 mmol/L 98-107 blood glucose 98 mg/dL 65-110 urea nitrogen, blood 18 mg/dL 7-18 creatinine, serum 0.96 mg/dL 0.55-1.30 alanine aminotransferase (SGPT), serum 34 U/L aspartate aminotransferase (SGOT), serum 12 U/L 15-37 calcium, serum 8.6 mg/dL 8.5-10.1 bilirubin, serum, total 0.20 mg/dL 0.00-1.00 Lab Report: HGBA1C - Chemistry hemoglobin A1C, blood, as % of total hemoglobin 5.3 % 4.3-6.0 Lab Report: LH/Adult/615, FSH/Adult/470 - Chemistry follicle stimulating hormone, serum 5.8 m[iU]/mL luteinizing hormone, serum 2.7 m[iU]/mL Lab Report: MonoSpot, UADIP W/MICRO, AUTO - Chemistry RBC, urine, dipstick Negative Negative protein, total urine random Negative mg/dL Negative Lab Report: MonoSpot, UADIP W/MICRO, AUTO - Urinalysis glucose, urine, [...] >=1.030 1.000-1.030 pH, urine, semiquantitative 5.5 5.0-8.5 urobilinogen, [...] semiquantitative Negative Negative appearance, urine Clear Clear urine color Yellow Colorless;Lightyellow;Straw;Yellow glucose, urine, semiquantitative Negative Negative ketones, urine, by test strip Negative Negative bilirubin, urine Negative Negative specific gravity, urine 1.025 1.000-1.030 pH, urine, semiquantitative 5.5 5.0-8.5 Office Visit: Consult for Painful Lipoma - Chemistry cholesterol, target level 200 mg/dL triglyceride, target level 200 mg/dL HDL cholesterol, serum, target level 35 mg/dL LDL target level 100 mg/dL Encounters Code Encounter Date Provider Facility CPT-68972 Level 4 Est. Patient 12:11:48 CDT Fabiola Johnson APRN [facility] CPT-64831 Level 3 New Patient 16:53:37 CDT Albert Caldera MD [facility] CPT-70296 Level 3 Est. Patient 11:25:49 CDT Renzo Thornton DO [facility] CPT-36166 Level 3 Est. Patient 15:22:01 CDT Ahmet Carbajal MD [facility] CPT-84273 Level 4 Est. Patient 09:00:51 CLAIM ADJUSTER Vishal Hui MD [facility] CPT-58973 Level 3 Est. Patient 11:37:33 CLAIM ADJUSTER Vishal Hui MD [facility] CPT-82939 Level 3 Est. Patient 08:41:09 CLAIM ADJUSTER Vishal Hui MD [facility] CPT-93324 Level 4 Est. Patient 10:19:35 CLAIM ADJUSTER Vishal Hui MD [facility] CPT-60791 Level 3 Est. Patient 13:35:45 CDT Vishal Hui MD [facility] CPT-74989 Level 4 Est. Patient 10:08:37 CDT Vishal Hui MD [facility] CPT-85983 Level 3 Est. Patient 11:22:10 CDT Vishal Hui MD [facility] CPT-11292 Level 3 Est. Patient 11:03:32 CDT Sahara Rodriguez MD [facility] CPT-62506 Level 3 Est. Patient 09:41:35 CDT Vishal Hui MD [facility] CPT-89631 Level 3 Est. Patient 12:00:41 CDT Neeraj Collins MD [facility] CPT-44278 Level 3 Est. Patient 09:16:24 CDT Vishal Hui MD [facility] CPT-45608 Level 4 Est. Patient 13:59:09 CDT Neeraj Collins MD [facility] CPT-39686 Level 3 Est. Patient 15:19:43 CDT Renzo Thornton DO [facility] CPT-74087 Level 3 Est. Patient 18:10:26 CDT Sahara Rodriguez MD [facility]-60945 Level 3 Est. Patient 14:49:50 CDT Vishal Hui MD [facility] CPT-95937 Level 4 Est. Patient 18:41:46 CDT Neeraj Collins MD [facility] CPT-78686 Level 4 Est. Patient 09:18:38 CLAIM ADJUSTER Vishal Hui MD [facility] CPT-34720 Level 3 Est. Patient 14:43:55 CLAIM ADJUSTER Vishal Hui MD [facility] CPT-42939 Level 3 Est. Patient 15:26:33 CLAIM ADJUSTER Sahara Rodriguez MD [facility]-76743 Level 3 Est. Patient 10:32:14 CLAIM ADJUSTER Vishal Hui MD [facility]-37840 Level 3 Est. Patient 15:12:52 CLAIM ADJUSTER Vishal Hui MD [facility] CPT-83971 Level 4 Est. Patient 09:19:27 CDT Vishal Hui MD [facility] CPT-13197 Level 3 Est. Patient 15:53:00 CDT Renzo Thornton [facility] CPT-15194 Level 3 Est. Patient 15:50:30 CDT Renzo Thornton [facility] CPT-24348 Level 3 Est. Patient 16:55:24 CDT Vishal Hui MD [facility] Procedures Code Procedure Name Date Entry Date Standard Description CPT-50799 Chest 2V Frontal and Lat - XRAY USE ONLY 11:06:31 CDT CPT-93356 EKG Trac and Interp - XRAY USE ONLY 11:31:43 CDT 08/26 CPT-J3420 Vitamin B12 1000mcg (Cyanocobalamin) 08:10:26 CLAIM ADJUSTER 04/12 CPT-18608 Abx/Therapy Injection 08:10:26 CLAIM ADJUSTER CPT-G0438 Initial Annual Wellness Exam 19:01:01 CLAIM ADJUSTER CPT-J3420 Vitamin B12 1000mcg (Cyanocobalamin) 16:57:46 CDT 08/14 CPT-93979 Recombivax HB Injection Suspension 5 MCG/0.5ML 08:37:50 CLAIM ADJUSTER CPT-24071 Immunization Single Admin 08:37:50 CLAIM ADJUSTER CPT-J3420 Vitamin B12 1000mcg (Cyanocobalamin) 08:32:16 CLAIM ADJUSTER 03/11 CPT-77413 Abx/Therapy Injection 08:32:16 CLAIM ADJUSTER CPT-82804 Chest 2V Frontal and Lat 11:46:38 CLAIM ADJUSTER CPT-60625 Venipuncture Draw Fee 09:12:45 CLAIM ADJUSTER CPT-J3420 Vitamin B12 1000mcg (Cyanocobalamin) 08:50:15 CLAIM ADJUSTER 02/08 CPT-51883 Abx/Therapy Injection 08:50:15 CLAIM ADJUSTER CPT-Cryo Cryotherapy 10:19:35 CLAIM ADJUSTER CPT-000 Give Appropriate Flu Vaccine 09:22:16 CDT CPT-J3420 Vitamin B12 1000mcg (Cyanocobalamin) 19:08:57 CDT 01/11 CPT-73039 Abx/Therapy Injection 19:08:57 CDT CPT-J3420 Vitamin B12 1000mcg (Cyanocobalamin) 08:19:08 CDT 12/11 CPT-51796 Abx/Therapy Injection 08:19:08 CDT CPT-J3420 Vitamin B12 1000mcg (Cyanocobalamin) 14:48:00 CDT 11/09 CPT-75334 Abx/Therapy Injection 14:47:59 CDT CPT-J3420 Vitamin B12 1000mcg (Cyanocobalamin) 08:34:04 CDT 10/09 CPT-13129 Abx/Therapy Injection 08:34:04 CDT CPT-J3420 Vitamin B12 1000mcg (Cyanocobalamin) 09:18:52 CDT 09/11 CPT-66871 Abx/Therapy Injection 09:18:52 CDT CPT-J3420 Vitamin B12 1000mcg (Cyanocobalamin) 08:35:44 CDT 09/04 CPT-78279 Abx/Therapy Injection 08:35:44 CDT CPT-47829 Immunization Single Admin 11:07:16 CDT CPT-51781 Hepatitis B adult IM 11:07:16 CDT CPT-J3420 Vitamin B12 1000mcg (Cyanocobalamin) 11:00:49 CDT 08/28 CPT-J1040 Depo Medrol 80 mg (Methyl Prednisolone Acetate) 11:00: 49 CDT CPT-61477 Abx/Therapy Injection 11:00:49 CDT CPT-J1040 Depo Medrol 80 mg (Methyl Prednisolone Acetate) 09:16: 23 CDT CPT-J3420 Vitamin B12 1000mcg (Cyanocobalamin) 08:27:05 CDT 08/20 CPT-25158 Abx/Therapy Injection 08:27:05 CDT CPT-91469 Recombivax HB Injection Suspension 5 MCG/0.5ML 10:00:41 CDT CPT-07156 Administration single or combination vaccine inc oral 10 :00:41 CDT CPT-95027 Sono transvag pelvis non OB uterus ovaries cervix 16:36: 57 CDT CPT-66074 LS spine comp w obliq 09:50:55 CLAIM ADJUSTER CPT-28798 Abd compl w upright 09:50:55 CLAIM ADJUSTER CPT-J1100 Decadron 4mg (Dexamethasone) 15:51:24 CLAIM ADJUSTER CPT-J1030 Depo Medrol 40 mg (Methyl Prednisolone Acetate) 15:51: 24 CLAIM ADJUSTER CPT-52374 Abx/Therapy Injection 15:51:24 CLAIM ADJUSTER CPT-J1100 Decadron 4mg (Dexamethasone) 15:26:33 CLAIM ADJUSTER CPT-J1030 Depo Medrol 40 mg (Methyl Prednisolone Acetate) 15:26: 33 CLAIM ADJUSTER CPT-76809 Sono retroperitoneal complete kidneys and bladder 17:15: 30 CDT CPT-68238 Abd compl w upright 16:09:25 CDT CPT-J1100 Decadron 8mg (Dexamethasone) 17:07:57 CDT CPT-84099 Abx/Therapy Injection 17:07:57 CDT CPT-J1100 Decadron 8mg (Dexamethasone) 16:55:24 CDT CPT-06479 Chest 2V Frontal and Lat 16:32:44 CDT
--- OUTSIDE RECORDS SUMMARY | 2016-11-04 11:00 | XMS REPORT | Clinical Summary ---
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 Status Provider Patient Instruction FLUTICASONE PROPIONATE 50 MCG/ACT SUSP 2 sprays each nostril daily before bed. FLUTICASONE PROPIONATE 21431016090 Active Fabiola Johnson APRN Active VERAPAMIL HCL ER 120 MG ORAL CR-TABS 1 tab po daily for blood pressure 09/27 VERAPAMIL HCL 24792926949 Active Fabiola Johnson APRN Active ADZENYS XR-ODT 6.3 MG ORAL TBED 1 tab po daily for ADHD AMPHETAMINE 20247730017 Active Fabiola Johnson APRN Active BENADRYL 25 MG CAP 4 po at bedtime for insomnia DIPHENHYDRAMINE HCL 87618338736 Active Fabiola Johnson APRN Active KLONOPIN 1 MG ORAL TABS 1 tab po TID CLONAZEPAM 26513735691 Active Fabiola Johnson APRN Active VALIUM 5 MG TAB Take 1-2 tablets daily DIAZEPAM 44071875489 No Longer Active Fabiola Johnson APRN Active METOPROLOL TARTRATE 25 MG ORAL TABS 1/2 tablet twice daily for heart rate and blood pressure METOPROLOL TARTRATE 74403839259 No Longer Active Fabiola Johnson APRN Active MIRALAX ORAL POWD 17GMS DAILY IN WATER POLYETHYLENE GLYCOL 3350 35628554518 Active Vishal Hui MD Active VIIBRYD 10 MG ORAL TABS Take 1 tablet once a day VILAZODONE HCL 15927189331 Active Ahmet Carbajal MD Active DICLOFENAC POTASSIUM TABS Take 1 tablet twice a day (pt. is not sure of the dose.) DICLOFENAC POTASSIUM TABS 68924492236 Active Ahmet Carbajal MD Active MIRALAX PACK 1 po qd PRN Constipation POLYETHYLENE GLYCOL 3350 49814310346 No Longer Active Ahmet Carbajal MD Active MINIPRESS 2 MG CAPS 4 cap po at night PRAZOSIN HCL 90075453324 No Longer Active Ahmet Carbajal MD Active PIROXICAM 20 MG CAPS 1 cap po qd PRN Pain PIROXICAM 93538924966 No Longer Active Ahmet Carbajal MD Active TRAMADOL HCL 50 MG TABS 1-2 po TID PRN Pain TRAMADOL HCL 23317220703 No Longer Active Ahmet Carbajal MD Active METOPROLOL TARTRATE 50 MG TAB 1 po bid METOPROLOL TARTRATE 19355599496 No Longer Active Ahmet Carbajal MD Active ABILIFY 15 MG ORAL TABS 1 tab daily ARIPIPRAZOLE 58350794453 No Longer Active Ahmet Carbajal MD Active PROZAC 20 MG ORAL CAPS 1 tab daily FLUOXETINE HCL 11859905266 No Longer Active Ahmet Carbajal MD Active AMBIEN 5 MG ORAL TABS 1 tab at bedtime ZOLPIDEM TARTRATE 61526033058 No Longer Active Ahmet Carbajal MD Active PREDNISONE 20 MG TAB 2 tabs daily for 4 days, 1 tab daily for 4 days, 1/2 tab daily for 4 days PREDNISONE 40103351104 No Longer Active Ahmet Carbajal MD Active KEFLEX 500 MG CAP 1 po TID x 10 days CEPHALEXIN 99665265066 No Longer Active Vishal Hui MD Active ABILIFY MAINTENA 400 MG IM SUSR Injection once per month ARIPIPRAZOLE 40199520024 Active Juliet Kimbrough APRN Active IMITREX 50 MG ORAL TABS 1/2 tab every 6 hours prn SUMATRIPTAN SUCCINATE 24139282241 Active 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 APRN Active TOPAMAX 50 MG ORAL TABS 1 tab twice daily TOPIRAMATE 66488627743 Active Vishal Hui MD Active SAPHRIS 5 MG SUBL 1 po bid ASENAPINE MALEATE 30095274185 No Longer Active 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 APRN Active LATUDA 80 MG TABS Take one by mouth daily LURASIDONE HCL 79472422254 No Longer Active 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 APRN Active AMLODIPINE BESYLATE 5 MG TABS 1 tablet by mouth daily AMLODIPINE BESYLATE 84833025852 No Longer Active 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 APRN Active AMITRIPTYLINE HCL 100 MG TAB one at hs AMITRIPTYLINE HCL 28019215169 No Longer Active Vishal Hui MD Active TRAZODONE HCL 100 MG TAB take 1 at bedtime TRAZODONE HCL 80952956821 No Longer Active Vishal Hui MD Active VYVANSE 40 MG CAPS 1 daily, LISDEXAMFETAMINE DIMESYLATE 44931494123 No Longer Active Vishal Hui MD Active IBUPROFEN 600 MG TAB 1 po TID PRN IBUPROFEN 81188747859 No Longer Active Vishal Hui MD Active PROZAC 20 MG CAP Take one by mouth daily FLUOXETINE HCL 65171532765 No Longer Active Vishal Hui MD Active ZOFRAN 4 MG TABS 1 po q6hr PRN Nausea ONDANSETRON HCL Active Vishal Hui MD Active BACTRIM DS 800-160 MG TABS 1 pill by mouth twice daily SULFAMETHOXAZOLE-TRIMETHOPRIM 48415249976 No Longer Active Sahara Rodriguez MD PhD Active DIFLUCAN 150 MG TAB 1 tablet by mouth daily FLUCONAZOLE 75127419023 No Longer Active Vishal Hui MD Active TIZANIDINE HCL 4 MG TABS 1 po q6hr PRN Muscle Spasm/Back Pain TIZANIDINE HCL 48599815287 Active 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 APRN Active CLINDAMYCIN HCL 150 MG CAPS 1 four times a day CLINDAMYCIN HCL 60011046203 No Longer Active Neeraj Collins MD Active KEFLEX 500 MG ORAL CAPS 1 cap QID by mouth CEPHALEXIN 65925816224 No Longer Active Neeraj Collins MD Active DIFLUCAN 150 MG TABS 1 pill every other day x 2 doses FLUCONAZOLE 15618665795 No Longer Active Sahara Rodriguez MD PhD Active MELATONIN 3 MG CAPS 2 po q hs MELATONIN 71484308548 No Longer Active Sahara Rodriguez MD PhD Active MULTIVITAMINS CAPS Take one by mouth daily MULTIPLE VITAMIN 38891099004 No Longer Active Sahara Rodriguez MD PhD Active BACTRIM DS 800-160 MG TAB 1 tab by mouth twice daily TRIMETHOPRIM-SULFAMETHOXAZOLE 47574387020 No Longer Active Sahara Rodriguez MD PhD Active [facility] PROBIOTIC ORAL CHEW 2 daily po PROBIOTIC PRODUCT 73523230347 No Longer Active Sahara Rodriguez MD PhD Active BACTRIM DS 800-160 MG TABS 1 po BID x 7 days SULFAMETHOXAZOLE-TRIMETHOPRIM 32650321652 No Longer Active Vishal Hiu MD Active CHANTIX STARTING MONTH EARNEST 0.5 MG X 11 & 1 MG X 42 TABS 0.5mg daily for 3 days , then 0.5mg BID for 4 days, then 1mg BID VARENICLINE TARTRATE 18665081053 No Longer Active TAMARA Gray Active VERAPAMIL HCL CR 120 MG TAB CR 1 po bid VERAPAMIL HCL 31338051450 No Longer Active Vishal Hui MD Active METOPROLOL SUCCINATE 50 MG TB24 1 tablet by mouth daily METOPROLOL SUCCINATE 85417280556 No Longer Active Vishal Hui MD Active SAPHRIS 10 MG SUBL 1 tab po bid ASENAPINE MALEATE 48761762789 No Longer Active Vishal Hui MD Active LISINOPRIL 20 MG TABS 1 tab po qd LISINOPRIL 24669674421 No Longer Active Vishal Hui MD Active LATUDA 20 MG TABS Take one by mouth daily LURASIDONE HCL 64359525164 No Longer Active Vishal Hui MD Active TRAZODONE HCL 50 MG TABS 1/2 tab po qd prn for anxiety TRAZODONE HCL 35876590959 No Longer Active Vishal Hui MD Active OMEPRAZOLE 20 MG TBEC 1 po q a.m. 30min prior to first food intake OMEPRAZOLE 37581466735 Active Vishal Hui MD Active RANITIDINE HCL 150 MG CAPS 1 twice a day RANITIDINE HCL 61266595675 Active 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 APRN Active LINZESS 290 MCG CAPS Take one by mouth daily LINACLOTIDE 12559246224 No Longer Active Vishal Hui MD Active SAPHRIS 5 MG SUBL 1 tab po qd ASENAPINE MALEATE 76419627736 No Longer Active Vishal Hui MD Active ZALEPLON 10 MG CAPS 1 cap po every other night ZALEPLON 41319761878 No Longer Active Vishal Hui MD Active LYRICA 50 MG CAPS 1 tab po TID PREGABALIN 93985547710 No Longer Active Vishal Hui MD Active LORATADINE 10 MG TABS 1 tab po qd LORATADINE 36912868942 No Longer Active Vishal Hui MD Active VERAPAMIL HCL ER 180 MG CR-TABS 1 tab po bid VERAPAMIL HCL 49234919753 No Longer Active Vishal Hui MD Active MIRALAX POWD 1 capfull once daily POLYETHYLENE GLYCOL 3350 79539988585 No Longer Active Vishal Hui MD Active PREDNISONE 20 MG TABS 1 tab po qd PREDNISONE 13127824279 No Longer Active Renzo Thornton DO Active LEVOFLOXACIN 500 MG TABS 1 tab po qd LEVOFLOXACIN 72683081794 No Longer Active Renzo Thornton DO Active BUSPIRONE HCL 15 MG TABS 1 tab po TID BUSPIRONE HCL 94331895312 No Longer Active Renzo Thornton DO Active BENZTROPINE MESYLATE 1 MG TABS 1 tab po qd BENZTROPINE MESYLATE 84397177891 No Longer Active Renzo Thornton DO Active ATENOLOL 25 MG TABS 1 tab po qd ATENOLOL 55129883686 No Longer Active Renzo Thornton DO Active ESCITALOPRAM OXALATE 20 MG TABS 1 tab po qd ESCITALOPRAM OXALATE 38565475385 No Longer Active Renzo Thornton DO Active ADVAIR DISKUS 250-50 MCG/DOSE AEPB 1 puff BID FLUTICASONE-SALMETEROL 74754196045 No Longer Active Renzo Thornton DO Active PREDNISONE 20 MG TAB 2 tabs daily for 3 days, 1 tab daily for 3 days, 1/2 tab daily for 2 days PREDNISONE 16537583139 No Longer Active Vishal Hui MD Active CEFDINIR 300 MG CAPS by mouth twice a day CEFDINIR 44325419576 No Longer Active Vishal Hui MD Active LANSOPRAZOLE 30 MG CPDR 1 cap po qd LANSOPRAZOLE 30613776519 No Longer Active Vishal Hui MD Active BACLOFEN 20 MG TABS 1 tab po tid BACLOFEN 51681434718 No Longer Active Vishal Hui MD Active ADVAIR DISKUS 250-50 MCG/DOSE AEPB 1 puff BID ADVAIR DISKUS 250-50 MCG/DOSE AEPB FLUTICASONE-SALMETEROL Inactive ESCITALOPRAM OXALATE 20 MG TABS 1 tab po qd ESCITALOPRAM OXALATE 20 MG TABS 146027 ESCITALOPRAM OXALATE Inactive ATENOLOL 25 MG TABS 1 tab po qd ATENOLOL 25 MG TABS 500781 ATENOLOL Inactive BENZTROPINE MESYLATE 1 MG TABS 1 tab po qd BENZTROPINE MESYLATE 1 MG TABS 905153 BENZTROPINE MESYLATE Inactive BUSPIRONE HCL 15 MG TABS 1 tab po TID BUSPIRONE HCL 15 MG TABS 273074 BUSPIRONE HCL Inactive LEVOFLOXACIN 500 MG TABS 1 tab po qd LEVOFLOXACIN 500 MG TABS 474621 LEVOFLOXACIN Inactive PREDNISONE 20 MG TABS 1 tab po qd PREDNISONE 20 MG TABS 894936 PREDNISONE Inactive MIRALAX POWD 1 capfull once daily MIRALAX POWD 863668 POLYETHYLENE GLYCOL 3350 Inactive VERAPAMIL HCL ER 180 MG CR-TABS 1 tab po bid VERAPAMIL HCL ER 180 MG CR-TABS VERAPAMIL HCL Inactive LORATADINE 10 MG TABS 1 tab po qd LORATADINE 10 MG TABS 499988 LORATADINE Inactive LYRICA 50 MG CAPS 1 tab po TID LYRICA 50 MG CAPS PREGABALIN Inactive ZALEPLON 10 MG CAPS 1 cap po every other night ZALEPLON 10 MG CAPS 129212 ZALEPLON Inactive SAPHRIS 5 MG SUBL 1 tab po qd SAPHRIS 5 MG SUBL ASENAPINE MALEATE Inactive TRAZODONE HCL 50 MG TABS 1/2 tab po qd prn for anxiety TRAZODONE HCL 50 MG TABS 012111 TRAZODONE HCL Inactive LATUDA 20 MG TABS Take one by mouth daily LATUDA 20 MG TABS LURASIDONE HCL Inactive LISINOPRIL 20 MG TABS 1 tab po qd LISINOPRIL 20 MG TABS 630404 LISINOPRIL Inactive SAPHRIS 10 MG SUBL 1 [...] twice daily BACTRIM DS 800-160 MG TAB 967026 TRIMETHOPRIM-SULFAMETHOXAZOLE Inactive MULTIVITAMINS CAPS Take one by mouth daily MULTIVITAMINS CAPS MULTIPLE VITAMIN Inactive MELATONIN 3 MG CAPS 2 po q hs MELATONIN 3 MG CAPS 378720 MELATONIN Inactive KEFLEX 500 MG ORAL CAPS 1 cap QID by mouth KEFLEX 500 MG ORAL CAPS 468129 CEPHALEXIN Inactive CLINDAMYCIN HCL 150 MG CAPS 1 four times a day CLINDAMYCIN HCL 150 MG CAPS 732472 CLINDAMYCIN HCL Inactive DIFLUCAN 150 MG TAB 1 tablet by mouth daily DIFLUCAN 150 MG TAB 733007 FLUCONAZOLE Inactive PROZAC 20 MG CAP Take one by mouth daily PROZAC 20 MG CAP 830399 FLUOXETINE HCL Inactive IBUPROFEN 600 MG TAB 1 po TID PRN IBUPROFEN 600 MG TAB 396649 IBUPROFEN Inactive VYVANSE 40 MG CAPS 1 daily, VYVANSE 40 MG CAPS LISDEXAMFETAMINE DIMESYLATE Inactive TRAZODONE HCL 100 MG TAB take 1 at bedtime TRAZODONE HCL 100 MG TAB 502410 TRAZODONE HCL Inactive AMITRIPTYLINE HCL 100 MG TAB one at hs AMITRIPTYLINE HCL 100 MG TAB 882168 AMITRIPTYLINE HCL Inactive AMLODIPINE BESYLATE 5 MG TABS 1 tablet by mouth daily AMLODIPINE BESYLATE 5 MG TABS 724802 AMLODIPINE BESYLATE Inactive LATUDA 80 MG TABS Take one by mouth daily LATUDA 80 MG TABS LURASIDONE HCL Inactive SAPHRIS 5 MG SUBL 1 po bid SAPHRIS 5 MG SUBL ASENAPINE MALEATE Inactive PREDNISONE 20 MG TAB 2 tabs daily for 4 days, 1 tab daily for 4 days, 1/2 tab daily for 4 days PREDNISONE 20 MG TAB 436652 PREDNISONE Inactive AMBIEN 5 MG ORAL TABS 1 tab at bedtime AMBIEN 5 MG ORAL TABS 014869 ZOLPIDEM TARTRATE Inactive PROZAC 20 MG ORAL CAPS 1 tab daily PROZAC 20 MG ORAL CAPS 480025 FLUOXETINE HCL Inactive ABILIFY 15 MG ORAL TABS 1 tab daily ABILIFY 15 MG ORAL TABS 891643 ARIPIPRAZOLE Inactive METOPROLOL TARTRATE 50 MG TAB 1 po bid METOPROLOL TARTRATE 50 MG TAB 750398 METOPROLOL TARTRATE Inactive TRAMADOL HCL 50 MG TABS 1-2 po TID PRN Pain TRAMADOL HCL 50 MG TABS 391650 TRAMADOL HCL Inactive PIROXICAM 20 MG CAPS 1 cap po qd PRN Pain PIROXICAM 20 MG CAPS 661882 PIROXICAM Inactive MINIPRESS 2 MG CAPS 4 cap po at night MINIPRESS 2 MG CAPS 068400 PRAZOSIN HCL Inactive MIRALAX PACK 1 po qd PRN Constipation MIRALAX PACK 871732 POLYETHYLENE GLYCOL 3350 Inactive METOPROLOL TARTRATE 25 MG ORAL TABS 1/2 tablet twice daily for heart rate and blood pressure METOPROLOL TARTRATE 25 MG ORAL TABS 602263 METOPROLOL TARTRATE Inactive VALIUM 5 MG TAB Take 1-2 tablets daily VALIUM 5 MG TAB 575929 DIAZEPAM Inactive CEFDINIR 300 MG CAPS by mouth twice a day CEFDINIR 300 MG CAPS 262825 CEFDINIR Inactive PREDNISONE 20 MG TAB 2 tabs daily for 3 days, 1 tab daily for 3 days, 1/2 tab daily for 2 days PREDNISONE 20 MG TAB 207968 PREDNISONE Inactive BACTRIM DS 800-160 MG TABS 1 po BID x 7 days BACTRIM DS 800-160 MG TABS 734514 SULFAMETHOXAZOLE-TRIMETHOPRIM Inactive DIFLUCAN 150 MG TABS 1 pill every other day x 2 doses DIFLUCAN 150 MG TABS 026110 FLUCONAZOLE Inactive BACTRIM DS 800-160 MG TABS 1 pill by mouth twice daily BACTRIM DS 800-160 MG TABS 813556 SULFAMETHOXAZOLE-TRIMETHOPRIM Inactive KEFLEX 500 MG CAP 1 po TID x 10 days KEFLEX 500 MG CAP 766010 CEPHALEXIN Inactive Advance Directives Directive Description Start [...] % 11.6-14.8 platelet count 394 10^3/MM^3 10*3/mm3 739-844 4314/01/11 leukocyte count, blood 13.8 10^3/MM^3 10*3/mm3 4.6-10.2 [...] Panel - Chemistry sodium, serum 139 mmol/L 563-066 3357/12/03 carbon dioxide, venous blood 28.5 mmol/L 21.0-32.0 [...] 5.5 % 4.3-6.0 cholesterol, serum 159 mg/dL 313-490 9616/12/03 triglyceride, serum, fasting 118 mg/dL 30-200 HDL [...] Panel - Chemistry sodium, serum 139 mmol/L 016-282 4386/12/22 carbon dioxide, venous blood 26.8 mmol/L 21.0-32.0 potassium, serum 4.2 mmol/L 3.5-5.2 chloride, serum 103 mmol/L 98-107 blood glucose 115 mg/dL 65-110 urea nitrogen, blood 20 mg/dL 7-18 creatinine, serum 0.90 mg/dL 0.55-1.30 alanine aminotransferase (SGPT), serum 38 U/L - aspartate aminotransferase (SGOT), serum 19 U/L 15-37 calcium, serum 8.6 mg/dL 8.5-10.1 bilirubin, serum, total 0.30 mg/dL 0.00-1.00 sodium, serum 139 mmol/L 698-603 0114/01/11 carbon dioxide, venous blood 26.6 mmol/L 21.0-32.0 potassium, serum 4.1 mmol/L 3.5-5.2 chloride, serum 100 mmol/L 98-107 blood glucose 86 mg/dL 65-110 urea nitrogen, blood 16 mg/dL 7-18 creatinine, serum 1.00 mg/dL 0.55-1.30 alanine aminotransferase (SGPT), serum 48 U/L -78 aspartate aminotransferase (SGOT), serum 17 U/L 15-37 calcium, serum 9.1 mg/dL 8.5-10.1 bilirubin, serum, total 0.40 mg/dL 0.00-1.00 sodium, serum 142 mmol/L 048-170 2409/06/08 carbon dioxide, venous blood 27.6 mmol/L 21.0-32.0 [...] Rate - Chemistry sodium, serum 139 mmol/L 167-825 9509/12/11 carbon dioxide, venous blood 25.4 mmol/L 21.0-32.0 [...] mg/dL Encounters Code Encounter Date Provider Facility CPT-04307 Level 4 Est. Patient 12:11:48 CDT Fabiola Johnosn APRN [facility] CPT-77822 Level 3 New Patient 16:53:37 CDT Albert Caldera MD [facility] CPT-95799 Level 3 Est. Patient 11:25:49 CDT Renzo Thornton DO [facility] CPT-11352 Level 3 Est. Patient 15:22:01 CDT Ahmet Carbajal MD [facility] CPT-43220 Level 4 Est. Patient 09:00:51 [employer] Vishal Hui MD [facility] CPT-22009 Level 3 Est. Patient 11:37:33 [employer] Vishal Hui MD [facility] CPT-79302 Level 3 Est. Patient 08:41:09 [employer] Vishal Hui MD [facility] CPT-52429 Level 4 Est. Patient 10:19:35 [employer] Vishal Hui MD [facility] CPT-05219 Level 3 Est. Patient 13:35:45 CDT Vishal Hui MD [facility] CPT-16761 Level 4 Est. Patient 10:08:37 CDT Vishal Hui MD [facility]-38683 Level 3 Est. Patient 11:22:10 CDT Vishal Hui MD [facility] CPT-36359 Level 3 Est. Patient 11:03:32 CDT Sahara Rodriguez MD [facility]-11405 Level 3 Est. Patient 09:41:35 CDT Vishal Hui MD [facility] CPT-30741 Level 3 Est. Patient 12:00:41 CDT Neeraj Collins MD [facility] CPT-14055 Level 3 Est. Patient 09:16:24 CDT Vishal Hui MD [facility]-18461 Level 4 Est. Patient 13:59:09 CDT Neeraj Collins MD [facility]-99731 Level 3 Est. Patient 15:19:43 CDT Renzo Thornton DO [facility] CPT-83824 Level 3 Est. Patient 18:10:26 CDT Sahara Rodriguez MD [facility] CPT-09167 Level 3 Est. Patient 14:49:50 CDT Vishal Hui MD [facility]-73612 Level 4 Est. Patient 18:41:46 CDT Neeraj Collins MD [facility]-68525 Level 4 Est. Patient 09:18:38 [employer] Vishal Hui MD [facility]-09282 Level 3 Est. Patient 14:43:55 [employer] Vishal Hui MD [facility] CPT-96000 Level 3 Est. Patient 15:26:33 [employer] Sahara Rodriguez MD [facility]-03767 Level 3 Est. Patient 10:32:14 [employer] Vishal Hui MD [facility]-46728 Level 3 Est. Patient 15:12:52 [employer] Vishal Hui MD [facility] CPT-07298 Level 4 Est. Patient 09:19:27 CDT Vishal Hui MD [facility] CPT-09136 Level 3 Est. Patient 15:53:[address] [facility] CPT-17993 Level 3 Est. Patient 15:50:[address] [facility] CPT-41823 Level 3 Est. Patient 16:55:24 CDT Vishal Hui MD [facility] Procedures Code Procedure Name Date Entry Date Standard Description CPT-91112 Chest 2V Frontal and Lat - XRAY USE ONLY 11:06:31 CDT CPT-76192 EKG Trac and Interp - XRAY USE ONLY 11:31:43 CDT 08/26 CPT-J3420 Vitamin B12 1000mcg (Cyanocobalamin) 08:10:26 [employer] 04/12 CPT-69689 Abx/Therapy Injection 08:10:26 [employer] CPT-G0438 Initial Annual Wellness Exam 19:01:01 [employer] CPT-J3420 Vitamin B12 1000mcg (Cyanocobalamin) 16:57:46 CDT 08/14 CPT-15259 Recombivax HB Injection Suspension 5 MCG/0.5ML 08:37:50 [employer] CPT-53590 Immunization Single Admin 08:37:50 [employer] CPT-J3420 Vitamin B12 1000mcg (Cyanocobalamin) 08:32:16 [employer] 03/11 CPT-69463 Abx/Therapy Injection 08:32:16 [employer] CPT-20642 Chest 2V Frontal and Lat 11:46:38 [employer] CPT-42244 Venipuncture Draw Fee 09:12:45 [employer] CPT-J3420 Vitamin B12 1000mcg (Cyanocobalamin) 08:50:15 [employer] 02/08 CPT-42863 Abx/Therapy Injection 08:50:15 [employer] CPT-Cryo Cryotherapy 10:19:35 [employer] CPT-000 Give Appropriate Flu Vaccine 09:22:16 CDT CPT-J3420 Vitamin B12 1000mcg (Cyanocobalamin) 19:08:57 CDT 01/11 CPT-60769 Abx/Therapy Injection 19:08:57 CDT CPT-J3420 Vitamin B12 1000mcg (Cyanocobalamin) 08:19:08 CDT 12/11 CPT-97724 Abx/Therapy Injection 08:19:08 CDT CPT-J3420 Vitamin B12 1000mcg (Cyanocobalamin) 14:48:00 CDT 11/09 CPT-09101 Abx/Therapy Injection 14:47:59 CDT CPT-J3420 Vitamin B12 1000mcg (Cyanocobalamin) 08:34:04 CDT 10/09 CPT-61760 Abx/Therapy Injection 08:34:04 CDT CPT-J3420 Vitamin B12 1000mcg (Cyanocobalamin) 09:18:52 CDT 09/11 CPT-07874 Abx/Therapy Injection 09:18:52 CDT CPT-J3420 Vitamin B12 1000mcg (Cyanocobalamin) 08:35:44 CDT 09/04 CPT-97606 Abx/Therapy Injection 08:35:44 CDT CPT-18485 Immunization Single Admin 11:07:16 CDT CPT-55958 Hepatitis B adult IM 11:07:16 CDT CPT-J3420 Vitamin B12 1000mcg (Cyanocobalamin) 11:00:49 CDT 08/28 CPT-J1040 Depo Medrol 80 mg (Methyl Prednisolone Acetate) 11:00: 49 CDT CPT-49529 Abx/Therapy Injection 11:00:49 CDT CPT-J1040 Depo Medrol 80 mg (Methyl Prednisolone Acetate) 09:16: 23 CDT CPT-J3420 Vitamin B12 1000mcg (Cyanocobalamin) 08:27:05 CDT 08/20 CPT-49870 Abx/Therapy Injection 08:27:05 CDT CPT-40696 Recombivax HB Injection Suspension 5 MCG/0.5ML 10:00:41 CDT CPT-41859 Administration single or combination vaccine inc oral 10 :00:41 CDT CPT-99828 Sono transvag pelvis non OB uterus ovaries cervix 16:36: 57 CDT CPT-70422 LS spine comp w obliq 09:50:55 [employer] CPT-30562 Abd compl w upright 09:50:55 [employer] CPT-J1100 Decadron 4mg (Dexamethasone) 15:51:24 [employer] CPT-J1030 Depo Medrol 40 mg (Methyl Prednisolone Acetate) 15:51: 24 [employer] CPT-37820 Abx/Therapy Injection 15:51:24 [employer] CPT-J1100 Decadron 4mg (Dexamethasone) 15:26:33 [employer] CPT-J1030 Depo Medrol 40 mg (Methyl Prednisolone Acetate) 15:26: 33 [employer] CPT-80144 Sono retroperitoneal complete kidneys and bladder 17:15: 30 CDT CPT-68154 Abd compl w upright 16:09:25 CDT CPT-J1100 Decadron 8mg (Dexamethasone) 17:07:57 CDT CPT-63353 Abx/Therapy Injection 17:07:57 CDT CPT-J1100 Decadron 8mg (Dexamethasone) 16:55:24 CDT CPT-46008 Chest 2V Frontal and Lat 16:32:44 CDT
--- OUTSIDE RECORDS SUMMARY | 2016-11-04 11:03 | XMS REPORT | Clinical Summary ---
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 Juliet Kimbrough CLIENT TECHNOLOGIES SPECIALIST Dependence on other enabling machines and devices [...] Active Ahmet Carbajal MD Generalized anxiety disorder Inspector Material Disposition well woman exam V72.31 Resolved Suzan Boo [...] Boo APRN Dysuria Anxiety Disorder ICD-300.00 Inactive Vishal [...] ICD-V70.0 Inactive Vishal Hui MD Vaginitis ICD-616.10 Jim Hui MD [...] Boo APRN DYSURIA ICD-788.1 Inactive Suzan Boo CLIENT TECHNOLOGIES SPECIALIST Cellulitis and abscess of breast ICD-611.0 Inactive Ahmet Carbajal MD Nondisplaced transverse fracture of shaft of left fibula, subsequent encounter for closed fracture with routine healing Inactive Suzan Boo CLIENT TECHNOLOGIES SPECIALIST Bronchitis, acute ICD-466.0 Inactive Ahmet Carbajal MD Inspector Material Disposition well woman exam ICD-V72.31 Inactive Suzan Boo CLIENT TECHNOLOGIES SPECIALIST Bronchitis, acute with mild bronchospasm ICD-466.0 Inactive Suzan Boo CLIENT TECHNOLOGIES SPECIALIST Tracheitis ICD-464.10 Inactive Suzan Boo CLIENT TECHNOLOGIES SPECIALIST Impetigo ICD-684 Inactive Suzan Boo CLIENT TECHNOLOGIES SPECIALIST Furuncle of buttock ICD-680.5 Inactive Suzan Boo CLIENT TECHNOLOGIES SPECIALIST Vaginal irritation ICD-623.9 Inactive Suzan Boo APRN Scalding pain on urination ICD-788.1 Inactive Szuan Boo APRN Abdominal pain, right upper quadrant ICD-789.01 Inactive Suzan Boo CLIENT TECHNOLOGIES SPECIALIST Dark urine ICD-791.9 Inactive Suzan Boo APRN Preop exam ICD-V72.84 Inactive Suzan Boo APRN Medication List Medication Instructions Start Date Stop Date Generic Name NDC Status Provider Patient Instruction MUPIROCIN 2 % OINT apply twice a day MUPIROCIN 66117179087 Active Suzan Boo APRN Active BACTRIM DS 800-160 MG TABS 1 twice a day SULFAMETHOXAZOLE- TRIMETHOPRIM 02721783612 Active Suzan Boo APRN Active [id number] 50-325-40 MG TABS 1 to 2 four times a day as needed for headache [id number] 40684907499 Active Suzan Boo APRN Active METOCLOPRAMIDE HCL 10 MG TABS 1 two times as needed for nausea and headaches METOCLOPRAMIDE HCL 62941404473 Active Meena Ortiz MA Active NYSTATIN 445182 UNIT/GM CREA apply three times a day to yeast rash NYSTATIN 39273832348 Active Suzan Boo APRN Active AMITIZA 24 MCG ORAL CAPS one capsule twice daily LUBIPROSTONE 97287137121 Active Suzan Boo APRN Active MIRALAX ORAL POWD 17GMS DAILY IN WATER POLYETHYLENE GLYCOL 3350 18229949737 No Longer Active Suzan Boo APRN Active LACTULOSE 10 GM/15ML ORAL SOLN 30mL oral BID for IBS-C LACTULOSE 96966605949 No Longer Active Suzan Boo APRN Active BACTRIM DS 800-160 MG TAB Take one (1) tablet by mouth twice a day for 5 days TRIMETHOPRIM-SULFAMETHOXAZOLE 70120196464 No Longer Active Suzan Boo APRN Active MUPIROCIN 2 % OINT apply twice a day MUPIROCIN 53967992760 No Longer Active Suzan Boo APRN Active BACTRIM DS 800-160 MG TABS 1 twice a day SULFAMETHOXAZOLE-TRIMETHOPRIM 80705958995 No Longer Active Suzan Boo APRN Active DIFLUCAN 150 MG TABS 1 by mouth for yeast FLUCONAZOLE 60652331732 No Longer Active Suzan Boo APRN Active LINZESS 290 MCG ORAL CAPS 1 tab 30 min prior to first meal each day. LINACLOTIDE 37233451453 No Longer Active Sheila Calderon LPN Active AMITIZA 8 MCG ORAL CAPS 1 tab BID LUBIPROSTONE 03209555280 No Longer Active Lynda Juarezephraim ENGAGEMENT ENGINEER Active TESSALON PERLES 100 MG CAPS 1 three times a day as needed for cough BENZONATATE 83832330620 No Longer Active Suzan Boo APRN Active BACTRIM DS 800-160 MG TABS 1 twice a day SULFAMETHOXAZOLE-TRIMETHOPRIM 38567184057 No Longer Active Suzan Boo APRN Active DIFLUCAN 150 MG TABS 1 by mouth for yeast FLUCONAZOLE 29793293380 No Longer Active Suzan Boo APRN Active EQ NICOTINE 21 MG/24HR TRANS PT24 Apply daily to stop smoking NICOTINE 55712027869 No Longer Active Suzan Boo APRN Active PREDNISONE 10 MG TABS 2 daily for 5 days then 1 daily for 5 days PREDNISONE 53747120873 No Longer Active Suzan Boo APRN Active LEVAQUIN 500 MG TABS 1 daily for infection LEVOFLOXACIN 03707834741 No Longer Active Suzan Boo APRN Active TROPICAMIDE 0.5 % OPHTH SOLN 1 drop PRN eye spasms TROPICAMIDE 39526339378 No Longer Active Suzan Boo APRN Active PREDNISONE 20 MG TAB 1 tablet daily x 4 days PREDNISONE 38186328394 No Longer Active Suzan Boo APRN Active ACETAMINOPHEN-CODEINE 120-12 MG/5ML SOLN 5 ml by mouth every 4-6 hours if needed for cough ACETAMINOPHEN-CODEINE 90692053136 No Longer Active Suzan Boo APRN Active KEFLEX 500 MG CAP 1 po qid CEPHALEXIN 44163531855 No Longer Active Suzan Boo APRN Active FLOVENT HFA 110 MCG/ACT AERO 2 puffs inhaled b.i.d. FLUTICASONE PROPIONATE HFA 05786430270 Active Renzo Thornton DO Active RISPERDAL 4 MG ORAL TABS 1 tab at bedtime RISPERIDONE 91834765553 Active Samantha Rothman RMA Active ZOFRAN 4 MG TABS 1 po q6hr PRN Nausea ONDANSETRON HCL No Longer Active Suzan Boo APRN Active FLUTICASONE PROPIONATE 50 MCG/ACT SUSP 2 sprays each nostril daily before bed. FLUTICASONE PROPIONATE 17250941451 No Longer Active Suzan Boo APRN Active ASPIRIN 325 MG ORAL TABS 1 tab q.d ASPIRIN 34730673216 No Longer Active Suzan Boo APRN Active HALOPERIDOL 10 MG ORAL TABS 1 tab q.d HALOPERIDOL 96897281234 No Longer Active Suzan Boo APRN Active GUAIFENESIN-CODEINE 100-10 MG/5ML SYRP 5ml every 4 to 6 hours as needed for cough GUAIFENESIN-CODEINE 08286777967 No Longer Active Suzan Boo APRN Active ZITHROMAX Z-EARNEST 250 MG TABS 2 today and then 1 daily for 4 days AZITHROMYCIN 38238707371 No Longer Active Suzan Boo APRN Active CLONAZEPAM 1 MG ORAL TABS 1 twice a day and an additional 1 tablet every other day as needed for pseudoseizures or anxiety CLONAZEPAM 89174949648 Active Suzan Boo APRN Active HYDROCODONE-ACETAMINOPHEN 5-325 MG ORAL TABS 1 tab two times a day HYDROCODONE-ACETAMINOPHEN 71160523999 No Longer Active Ahmet Carbajal MD Active LAMICTAL 100 MG ORAL TABS 1 tab 2 times qd. LAMOTRIGINE 33700981912 Active Ahmet Carbajal MD Active PREDNISONE 20 MG TABS 2 daily for 5 days then 1 daily for 5 days PREDNISONE 60466895194 No Longer Active Ahmet Carbajal MD Active FLUTICASONE PROPIONATE 50 MCG/ACT SUSP 1 to 2 sprays each nostril daily for allergies FLUTICASONE PROPIONATE 77088923105 Active Tila Nicolas Active BENADRYL 25 MG CAP 4 po at bedtime for insomnia DIPHENHYDRAMINE HCL 62967741553 No Longer Active Ahmet Carbajal MD Active ADVAIR DISKUS 250-50 MCG/DOSE INH AEPB 1 puff twice a day for asthma FLUTICASONE-SALMETEROL 17012752765 No Longer Active Ahmet Carbajal MD Active KLONOPIN 1 MG ORAL TABS 1 tab po TID CLONAZEPAM 82098196856 No Longer Active Ahmet Carbajal MD Active ABILIFY MAINTENA 400 MG IM SUSR 400mg injection every 26 days ARIPIPRAZOLE 47671475909 No Longer Active Ahmet Carbajal MD Active TRAMADOL HCL 50 MG TABS 1/2-1 tab TID PRN TRAMADOL HCL 84139773424 No Longer Active Ahmet Carbajal MD Active BACTRIM DS 800-160 MG TABS 1 twice a day SULFAMETHOXAZOLE- TRIMETHOPRIM 84188493203 No Longer Active Ahmet Carbajal MD Active PROAIR HFA 108 (90 BASE) MCG/ACT AERS 2 puffs four times a day as needed 2015 ALBUTEROL SULFATE 79532962645 Active Honey Hinton CLIENT TECHNOLOGIES SPECIALIST Active MONISTAT 7 COMBO PACK WOODROW 100 & 2 MG-% (9GM) VAG KIT 1 applicatorful per vagina q pm x 7 MICONAZOLE NITRATE 59255896264 No Longer Active Ahemt Carbajal MD Active FLAGYL 500 MG TAB 1 tablet by mouth bid METRONIDAZOLE 73624273019 No Longer Active Ahmet Carbajal MD Active OXYCODONE HCL ER 10 MG ORAL T12A 1/2 tab by mouth every 4 hours prn OXYCODONE HCL 63160483114 No Longer Active Ahmet Carbajal MD Active METHYLPREDNISOLONE 4 MG ORAL TABS po daily METHYLPREDNISOLONE 60143189747 No Longer Active Ahmet Carbajal MD Active LEVOFLOXACIN 500 MG ORAL TABS po daily LEVOFLOXACIN 30332715445 No Longer Active Ahmet Carbajal MD Active VIIBRYD 10 MG ORAL TABS Take 1 tablet once a day VILAZODONE HCL 05868268943 No Longer Active Ahmet Carbajal MD Active TOPAMAX 50 MG ORAL TABS 1 tab twice daily TOPIRAMATE 18844989838 No Longer Active Ahmet Carbajal MD Active DICLOFENAC SODIUM 50 MG TBEC 1 tablet by mouth four times daily PRN Pain 2015 DICLOFENAC SODIUM 64363216178 No Longer Active Ahmet Carbajal MD Active ADZENYS XR-ODT 6.3 MG ORAL TBED 1 tab po daily for ADHD AMPHETAMINE 60610918894 No Longer Active Ahmet Carbajal MD Active CHANTIX 1 MG TABS 1 twice a day to help quit smoking VARENICLINE TARTRATE 96294738424 No Longer Active Dipika Burgos MD Active CHANTIX STARTING MONTH EARNEST 0.5 MG X 11 & 1 MG X 42 TABS take as directed 2015 VARENICLINE TARTRATE 73524370375 No Longer Active Dipika Burgos MD Active TESSALON PERLES 100 MG CAP 1 to 2 tablets by mouth 3 times daily as needed for cough BENZONATATE 02342043143 No Longer Active 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 APRN Active IMITREX 50 MG ORAL TABS 0.5 po x 1 PRN Headache. May repeat dose x 1 in 2 hours if needed SUMATRIPTAN SUCCINATE 33280221414 Active TAMARA Casey Active HYDROCODONE-ACETAMINOPHEN 5-325 MG TABS 1 to 2 four times a day as needed for pain use until can be seen by specialist HYDROCODONE- ACETAMINOPHEN 47825581757 No Longer Active Vishal Hui MD Active PROAIR HFA 108 (90 BASE) MCG/ACT AERS 2 puffs four times a day as needed 2015 ALBUTEROL SULFATE 27011046821 No Longer Active Vishal Hui MD Active PREDNISONE 20 MG TABS 2 daily for 5 days then 1 daily for 5 days PREDNISONE 51598479311 No Longer Active Vishal Hui MD Active ZITHROMAX Z-EARNEST 250 MG TABS 2 today and then 1 daily for 4 days AZITHROMYCIN 61323043941 No Longer Active Vishal Hui MD Active DICLOFENAC POTASSIUM TABS Take 1 tablet twice a day (pt. is not sure of the dose.) DICLOFENAC POTASSIUM TABS 87369779255 No Longer Active Vishal Hui MD Active VERAPAMIL HCL ER 120 MG ORAL CR-TABS Take 1 tablet by mouth twice a day. VERAPAMIL HCL 11284810930 Active Vishal Hui MD Active FLAGYL 500 MG TAB 1 tablet by mouth bid METRONIDAZOLE 46955969758 No Longer Active Vishal Hui MD Active VALIUM 5 MG TAB Take 1-2 tablets daily DIAZEPAM 42964225776 No Longer Active Fabiola Johnson APRN Active METOPROLOL TARTRATE 25 MG ORAL TABS 1/2 tablet twice daily for heart rate and blood pressure METOPROLOL TARTRATE 78504853400 No Longer Active Fabiola Johnson APRN Active MIRALAX PACK 1 po qd PRN Constipation POLYETHYLENE GLYCOL 3350 33632416793 No Longer Active Ahmet Carbajal MD Active MINIPRESS 2 MG CAPS 4 cap po at night PRAZOSIN HCL 54876190906 No Longer Active Ahmet Carbajal MD Active PIROXICAM 20 MG CAPS 1 cap po qd PRN Pain PIROXICAM 41602957702 No Longer Active Ahmet Carbajal MD Active TRAMADOL HCL 50 MG TABS 1-2 po TID PRN Pain TRAMADOL HCL 35130221808 No Longer Active Ahmet Carbajal MD Active METOPROLOL TARTRATE 50 MG TAB 1 po bid METOPROLOL TARTRATE 91642805295 No Longer Active Ahmet Carbajal MD Active ABILIFY 15 MG ORAL TABS 1 tab daily ARIPIPRAZOLE 12474050892 No Longer Active Ahmet Carbajal MD Active PROZAC 20 MG ORAL CAPS 1 tab daily FLUOXETINE HCL 79209426985 No Longer Active Ahmet Carbajal MD Active AMBIEN 5 MG ORAL TABS 1 tab at bedtime ZOLPIDEM TARTRATE 83029039825 No Longer Active Ahmet Carbajal MD Active PREDNISONE 20 MG TAB 2 tabs daily for 4 days, 1 tab daily for 4 days, 1/2 tab daily for 4 days PREDNISONE 04231083536 No Longer Active Ahmet Carbajal MD Active KEFLEX 500 MG CAP 1 po TID x 10 days CEPHALEXIN 52295202199 No Longer Active Vishal Hui MD Active SAPHRIS 5 MG SUBL 1 po bid ASENAPINE MALEATE 25617497822 No Longer Active Jillina Frazell CLIENT TECHNOLOGIES SPECIALIST Active LATUDA 80 MG TABS Take one by mouth daily LURASIDONE HCL 72201546926 No Longer Active Jillina Frazell CLIENT TECHNOLOGIES SPECIALIST Active AMLODIPINE BESYLATE 5 MG TABS 1 tablet by mouth daily AMLODIPINE BESYLATE 34144596098 No Longer Active Jillina Frazell CLIENT TECHNOLOGIES SPECIALIST Active AMITRIPTYLINE HCL 100 MG TAB one at hs AMITRIPTYLINE HCL 61633689259 No Longer Active Vishal Hui MD Active TRAZODONE HCL 100 MG TAB take 1 at bedtime TRAZODONE HCL 59849356231 No Longer Active Vishal Hui MD Active VYVANSE 40 MG CAPS 1 daily, LISDEXAMFETAMINE DIMESYLATE 69279112734 No Longer Active Vishal Hui MD Active IBUPROFEN 600 MG TAB 1 po TID PRN IBUPROFEN 43752451564 No Longer Active Vishal Hui MD Active PROZAC 20 MG CAP Take one by mouth daily FLUOXETINE HCL 25217782794 No Longer Active Vishal Hui MD Active BACTRIM DS 800-160 MG TABS 1 pill by mouth twice daily SULFAMETHOXAZOLE-TRIMETHOPRIM 89466943634 No Longer Active Sahara Rodriguez MD PhD Active DIFLUCAN 150 MG TAB 1 tablet by mouth daily FLUCONAZOLE 47886432562 No Longer Active Vishal Hui MD Active TIZANIDINE HCL 4 MG TABS 1 po q6hr PRN Muscle Spasm/Back Pain TIZANIDINE HCL 57804919580 Active TMAARA Casey Active CLINDAMYCIN HCL 150 MG CAPS 1 four times a day CLINDAMYCIN HCL 94810084346 No Longer Active Neeraj Collins MD Active KEFLEX 500 MG ORAL CAPS 1 cap QID by mouth CEPHALEXIN 16571277862 No Longer Active Neeraj Collins MD Active DIFLUCAN 150 MG TABS 1 pill every other day x 2 doses FLUCONAZOLE 99594125100 No Longer Active Sahara Rodriguez MD PhD Active MELATONIN 3 MG CAPS 2 po q hs MELATONIN 81028296216 No Longer Active Sahara Rodriguez MD PhD Active MULTIVITAMINS CAPS Take one by mouth daily MULTIPLE VITAMIN 69553811061 No Longer Active Sahara Rodriguez MD PhD Active BACTRIM DS 800-160 MG TAB 1 tab by mouth twice daily TRIMETHOPRIM-SULFAMETHOXAZOLE 26867751491 No Longer Active Sahara Rodriguez MD PhD Active [facility] PROBIOTIC ORAL CHEW 2 daily po PROBIOTIC PRODUCT 69474135030 No Longer Active Sahara Rodriguez MD PhD Active BACTRIM DS 800-160 MG TABS 1 po BID x 7 days SULFAMETHOXAZOLE-TRIMETHOPRIM 02560864827 No Longer Active Vishal Hui MD Active CHANTIX STARTING MONTH EARNEST 0.5 MG X 11 & 1 MG X 42 TABS 0.5mg daily for 3 days , then 0.5mg BID for 4 days, then 1mg BID VARENICLINE TARTRATE 45318849645 No Longer Active Lisette Scarrow, RMA Active VERAPAMIL HCL CR 120 MG TAB CR 1 po bid VERAPAMIL HCL 65822685419 No Longer Active Vishal Hui MD Active METOPROLOL SUCCINATE 50 MG TB24 1 tablet by mouth daily METOPROLOL SUCCINATE 91329347245 No Longer Active Vishal Hui MD Active SAPHRIS 10 MG SUBL 1 tab po bid ASENAPINE MALEATE 76690750473 No Longer Active Vishal Hui MD Active LISINOPRIL 20 MG TABS 1 tab po qd LISINOPRIL 13293969809 No Longer Active Vishal Hui MD Active LATUDA 20 MG TABS Take one by mouth daily LURASIDONE HCL 03986784423 No Longer Active Vishal Hui MD Active TRAZODONE HCL 50 MG TABS 1/2 tab po qd prn for anxiety TRAZODONE HCL 60675792598 No Longer Active Vishal Hui MD Active OMEPRAZOLE 20 MG TBEC 1 po q a.m. 30min prior to first food intake OMEPRAZOLE 66698381971 Active Bertha Kirby, TAMARA Active RANITIDINE HCL 150 MG CAPS 1 twice a day RANITIDINE HCL 50115551165 Active Lynda Xiao LPN Active LINZESS 290 MCG CAPS Take one by mouth daily LINACLOTIDE 82436653503 No Longer Active Vishal Hui MD Active SAPHRIS 5 MG SUBL 1 tab po qd ASENAPINE MALEATE 57195838110 No Longer Active Vishal Hui MD Active ZALEPLON 10 MG CAPS 1 cap po every other night ZALEPLON 72893215199 No Longer Active Vishal Hui MD Active LYRICA 50 MG CAPS 1 tab po TID PREGABALIN 81683736186 No Longer Active Vishal Hui MD Active LORATADINE 10 MG TABS 1 tab po qd LORATADINE 80025936149 No Longer Active Vishal Hui MD Active VERAPAMIL HCL ER 180 MG CR-TABS 1 tab po bid VERAPAMIL HCL 28211785290 No Longer Active Vishal Hui MD Active MIRALAX POWD 1 capfull once daily POLYETHYLENE GLYCOL 3350 48601754174 No Longer Active Vishal Hui MD Active PREDNISONE 20 MG TABS 1 tab po qd PREDNISONE 34204581105 No Longer Active Renzo Thornton DO Active LEVOFLOXACIN 500 MG TABS 1 tab po qd LEVOFLOXACIN 01476895163 No Longer Active Renzo Thornton DO Active BUSPIRONE HCL 15 MG TABS 1 tab po TID BUSPIRONE HCL 79680745825 No Longer Active Renzo Thornton DO Active BENZTROPINE MESYLATE 1 MG TABS 1 tab po qd BENZTROPINE MESYLATE 25196073915 No Longer Active Renzo Thornton DO Active ATENOLOL 25 MG TABS 1 tab po qd ATENOLOL 66188042005 No Longer Active Renzo Thornton DO Active ESCITALOPRAM OXALATE 20 MG TABS 1 tab po qd ESCITALOPRAM OXALATE 26874910422 No Longer Active Renzo Thornton DO Active ADVAIR DISKUS 250-50 MCG/DOSE AEPB 1 puff BID FLUTICASONE-SALMETEROL 96262938420 No Longer Active Renzo Thornton DO Active PREDNISONE 20 MG TAB 2 tabs daily for 3 days, 1 tab daily for 3 days, 1/2 tab daily for 2 days PREDNISONE 48061942425 No Longer Active Vishal Hui MD Active CEFDINIR 300 MG CAPS by mouth twice a day CEFDINIR 66498738148 No Longer Active Vishal Hui MD Active LANSOPRAZOLE 30 MG CPDR 1 cap po qd LANSOPRAZOLE 51376141568 No Longer Active Vishal Hui MD Active BACLOFEN 20 MG TABS 1 tab po tid BACLOFEN 01714016597 No Longer Active Vishal Hui MD Active ADVAIR DISKUS 250-50 MCG/DOSE AEPB 1 puff BID ADVAIR DISKUS 250-50 MCG/DOSE AEPB FLUTICASONE-SALMETEROL Inactive ESCITALOPRAM OXALATE 20 MG TABS 1 tab po qd ESCITALOPRAM OXALATE 20 MG TABS 616285 ESCITALOPRAM OXALATE Inactive ATENOLOL 25 MG TABS 1 tab po qd ATENOLOL 25 MG TABS 212993 ATENOLOL Inactive BENZTROPINE MESYLATE 1 MG TABS 1 tab po qd BENZTROPINE MESYLATE 1 MG TABS 559793 BENZTROPINE MESYLATE Inactive BUSPIRONE HCL 15 MG TABS 1 tab po TID BUSPIRONE HCL 15 MG TABS 608174 BUSPIRONE HCL Inactive LEVOFLOXACIN 500 MG TABS 1 tab po qd LEVOFLOXACIN 500 MG TABS 662809 LEVOFLOXACIN Inactive PREDNISONE 20 MG TABS 1 tab po qd PREDNISONE 20 MG TABS 190222 PREDNISONE Inactive MIRALAX POWD 1 capfull once daily MIRALAX POWD 825427 POLYETHYLENE GLYCOL 3350 Inactive VERAPAMIL HCL ER 180 MG CR-TABS 1 tab po bid VERAPAMIL HCL ER 180 MG CR-TABS VERAPAMIL HCL Inactive LORATADINE 10 MG TABS 1 tab po qd LORATADINE 10 MG TABS 669147 LORATADINE Inactive LYRICA 50 MG CAPS 1 tab po TID LYRICA 50 MG CAPS PREGABALIN Inactive ZALEPLON 10 MG CAPS 1 cap po every other night ZALEPLON 10 MG CAPS 932995 ZALEPLON Inactive SAPHRIS 5 MG SUBL 1 tab po qd SAPHRIS 5 MG SUBL ASENAPINE MALEATE Inactive TRAZODONE HCL 50 MG TABS 1/2 tab po qd prn for anxiety TRAZODONE HCL 50 MG TABS 628034 TRAZODONE HCL Inactive LATUDA 20 MG TABS Take one by mouth daily LATUDA 20 MG TABS LURASIDONE HCL Inactive LISINOPRIL 20 MG TABS 1 tab po qd LISINOPRIL 20 MG TABS 207680 LISINOPRIL Inactive SAPHRIS 10 MG SUBL 1 [...] twice daily BACTRIM DS 800-160 MG TAB 531173 TRIMETHOPRIM-SULFAMETHOXAZOLE Inactive MULTIVITAMINS CAPS Take one by mouth daily MULTIVITAMINS CAPS MULTIPLE VITAMIN Inactive MELATONIN 3 MG CAPS 2 po q hs MELATONIN 3 MG CAPS 642905 MELATONIN Inactive KEFLEX 500 MG ORAL CAPS 1 cap QID by mouth KEFLEX 500 MG ORAL CAPS 531963 CEPHALEXIN Inactive CLINDAMYCIN HCL 150 MG CAPS 1 four times a day CLINDAMYCIN HCL 150 MG CAPS 19740326 CLINDAMYCIN HCL Inactive DIFLUCAN 150 MG TAB 1 tablet by mouth daily DIFLUCAN 150 MG TAB 661444 FLUCONAZOLE Inactive PROZAC 20 MG CAP Take one by mouth daily PROZAC 20 MG CAP 173215 FLUOXETINE HCL Inactive IBUPROFEN 600 MG TAB 1 po TID PRN IBUPROFEN 600 MG TAB 697392 IBUPROFEN Inactive VYVANSE 40 MG CAPS 1 daily, VYVANSE 40 MG CAPS LISDEXAMFETAMINE DIMESYLATE Inactive TRAZODONE HCL 100 MG TAB take 1 at bedtime TRAZODONE HCL 100 MG TAB 815113 TRAZODONE HCL Inactive AMITRIPTYLINE HCL 100 MG TAB one at hs AMITRIPTYLINE HCL 100 MG TAB 765312 AMITRIPTYLINE HCL Inactive AMLODIPINE BESYLATE 5 MG TABS 1 tablet by mouth daily AMLODIPINE BESYLATE 5 MG TABS 804842 AMLODIPINE BESYLATE Inactive LATUDA 80 MG TABS Take one by mouth daily LATUDA 80 MG TABS LURASIDONE HCL Inactive SAPHRIS 5 MG SUBL 1 po bid SAPHRIS 5 MG SUBL ASENAPINE MALEATE Inactive PREDNISONE 20 MG TAB 2 tabs daily for 4 days, 1 tab daily for 4 days, 1/2 tab daily for 4 days PREDNISONE 20 MG TAB 009968 PREDNISONE Inactive AMBIEN 5 MG ORAL TABS 1 tab at bedtime AMBIEN 5 MG ORAL TABS 479652 ZOLPIDEM TARTRATE Inactive PROZAC 20 MG ORAL CAPS 1 tab daily PROZAC 20 MG ORAL CAPS 048866 FLUOXETINE HCL Inactive ABILIFY 15 MG ORAL TABS 1 tab daily ABILIFY 15 MG ORAL TABS 568968 ARIPIPRAZOLE Inactive METOPROLOL TARTRATE 50 MG TAB 1 po bid METOPROLOL TARTRATE 50 MG TAB 190152 METOPROLOL TARTRATE Inactive TRAMADOL HCL 50 MG TABS 1-2 po TID PRN Pain TRAMADOL HCL 50 MG TABS 170292 TRAMADOL HCL Inactive PIROXICAM 20 MG CAPS 1 cap po qd PRN Pain PIROXICAM 20 MG CAPS 941579 PIROXICAM Inactive MINIPRESS 2 MG CAPS 4 cap po at night MINIPRESS 2 MG CAPS 076202 PRAZOSIN HCL Inactive MIRALAX PACK 1 po qd PRN Constipation MIRALAX PACK 781973 POLYETHYLENE GLYCOL 3350 Inactive METOPROLOL TARTRATE 25 MG ORAL TABS 1/2 tablet twice daily for heart rate and blood pressure METOPROLOL TARTRATE 25 MG ORAL TABS 077704 METOPROLOL TARTRATE Inactive VALIUM 5 MG TAB Take 1-2 tablets daily VALIUM 5 MG TAB 398063 DIAZEPAM Inactive FLAGYL 500 MG TAB 1 tablet by mouth bid FLAGYL 500 MG TAB 874133 METRONIDAZOLE Inactive DICLOFENAC POTASSIUM TABS Take 1 tablet twice a day (pt. is not sure of the dose.) DICLOFENAC POTASSIUM TABS DICLOFENAC POTASSIUM TABS Inactive ZITHROMAX Z-EARNEST 250 MG TABS 2 today and then 1 daily for 4 days ZITHROMAX Z-EARNEST 250 MG TABS 3428676 AZITHROMYCIN Inactive PREDNISONE 20 MG TABS 2 daily for 5 days then 1 daily for 5 days PREDNISONE 20 MG TABS 886028 PREDNISONE Inactive PROAIR HFA 108 (90 BASE) MCG/ACT AERS 2 puffs four times a day as needed 2015 PROAIR HFA 108 (90 BASE) MCG/ACT AERS ALBUTEROL SULFATE Inactive HYDROCODONE-ACETAMINOPHEN 5-325 MG TABS 1 to 2 four times a day as needed for pain use until can be seen by specialist HYDROCODONE- ACETAMINOPHEN 5-325 MG TABS 469195 HYDROCODONE-ACETAMINOPHEN Inactive TESSALON PERLES 100 MG CAP 1 to 2 tablets by mouth 3 times daily as needed for cough TESSALON PERLES 100 MG CAP 184533 BENZONATATE Inactive CHANTIX STARTING MONTH EARNEST 0.5 [...] Pain 2015 DICLOFENAC SODIUM 50 MG TBEC 206899 DICLOFENAC SODIUM Inactive TOPAMAX 50 MG ORAL TABS 1 tab twice daily TOPAMAX 50 MG ORAL TABS 318401 TOPIRAMATE Inactive VIIBRYD 10 MG ORAL TABS Take 1 tablet once a day VIIBRYD 10 MG ORAL TABS VILAZODONE HCL Inactive LEVOFLOXACIN 500 MG ORAL TABS po daily LEVOFLOXACIN 500 MG ORAL TABS 224728 LEVOFLOXACIN Inactive METHYLPREDNISOLONE 4 MG ORAL TABS po daily METHYLPREDNISOLONE 4 MG ORAL TABS 771369 METHYLPREDNISOLONE Inactive OXYCODONE HCL ER 10 MG ORAL T12A 1/2 tab by mouth every 4 hours prn OXYCODONE HCL ER 10 MG ORAL T12A OXYCODONE HCL Inactive FLAGYL 500 MG TAB 1 tablet by mouth bid FLAGYL 500 MG TAB 868970 METRONIDAZOLE Inactive MONISTAT 7 COMBO PACK WOODROW 100 & 2 MG-% (9GM) VAG KIT 1 applicatorful per vagina q pm x 7 MONISTAT 7 COMBO PACK WOODROW 100 & 2 MG-% (9GM) VAG KIT MICONAZOLE NITRATE Inactive BACTRIM DS 800-160 MG TABS 1 twice a day BACTRIM DS 800-160 MG TABS 206944 SULFAMETHOXAZOLE-TRIMETHOPRIM Inactive TRAMADOL HCL 50 MG TABS 1/2-1 tab TID PRN TRAMADOL HCL 50 MG TABS 194878 TRAMADOL HCL Inactive ABILIFY MAINTENA 400 MG IM SUSR 400mg injection every 26 days ABILIFY MAINTENA 400 MG IM SUSR ARIPIPRAZOLE Inactive KLONOPIN 1 MG ORAL TABS 1 tab po TID KLONOPIN 1 MG ORAL TABS 922641 CLONAZEPAM Inactive ADVAIR DISKUS 250-50 MCG/DOSE INH AEPB 1 puff twice a day for asthma ADVAIR DISKUS 250-50 MCG/DOSE INH AEPB FLUTICASONE- SALMETEROL Inactive BENADRYL 25 MG CAP 4 po at bedtime for insomnia BENADRYL 25 MG CAP DIPHENHYDRAMINE HCL Inactive PREDNISONE 20 MG TABS 2 daily for 5 days then 1 daily for 5 days PREDNISONE 20 MG TABS 629301 PREDNISONE Inactive HYDROCODONE-ACETAMINOPHEN 5-325 MG ORAL TABS 1 tab two times a day HYDROCODONE-ACETAMINOPHEN 5-325 MG ORAL TABS 792454 HYDROCODONE-ACETAMINOPHEN Inactive ZITHROMAX Z-EARNEST 250 MG TABS 2 today and then 1 daily for 4 days ZITHROMAX Z-EARNEST 250 MG TABS [id number] AZITHROMYCIN Inactive GUAIFENESIN-CODEINE 100-10 MG/5ML SYRP 5ml every 4 to 6 hours as needed for cough GUAIFENESIN-CODEINE 100-10 MG/5ML SYRP [id number] GUAIFENESIN-CODEINE Inactive HALOPERIDOL 10 MG ORAL TABS 1 tab q.d HALOPERIDOL 10 MG ORAL TABS [id number] HALOPERIDOL Inactive ASPIRIN 325 MG ORAL TABS 1 tab q.d ASPIRIN 325 MG ORAL TABS [id number] ASPIRIN Inactive FLUTICASONE PROPIONATE 50 MCG/ACT SUSP 2 sprays each nostril daily before bed. FLUTICASONE PROPIONATE 50 MCG/ACT SUSP [id number] FLUTICASONE PROPIONATE Inactive ZOFRAN 4 MG TABS 1 po q6hr PRN Nausea ZOFRAN 4 MG TABS 382016 ONDANSETRON HCL Inactive KEFLEX 500 MG CAP 1 po qid KEFLEX 500 MG CAP 434974 CEPHALEXIN Inactive ACETAMINOPHEN-CODEINE 120-12 MG/5ML SOLN 5 ml by mouth every 4-6 hours if needed for cough ACETAMINOPHEN-CODEINE 120-12 MG/5ML SOLN 559388 ACETAMINOPHEN-CODEINE Inactive PREDNISONE 20 MG TAB 1 tablet daily x 4 days PREDNISONE 20 MG TAB 648999 PREDNISONE Inactive TROPICAMIDE 0.5 % OPHTH SOLN 1 drop PRN eye spasms TROPICAMIDE 0.5 % OPHTH SOLN 787547 TROPICAMIDE Inactive LEVAQUIN 500 MG TABS 1 daily for infection LEVAQUIN 500 MG TABS 446387 LEVOFLOXACIN Inactive PREDNISONE 10 MG TABS 2 daily for 5 days then 1 daily for 5 days PREDNISONE 10 MG TABS 419077 PREDNISONE Inactive EQ NICOTINE 21 MG/24HR TRANS [...] for cough TESSALON PERLES 100 MG CAPS 317296 BENZONATATE Inactive AMITIZA 8 MCG ORAL CAPS [...] twice a day MUPIROCIN 2 % OINT 426890 MUPIROCIN Inactive BACTRIM DS 800-160 MG TAB Take one (1) tablet by mouth twice a day for 5 days BACTRIM DS 800-160 MG TAB 19820521 TRIMETHOPRIM- SULFAMETHOXAZOLE Inactive LACTULOSE 10 GM/15ML ORAL SOLN 30mL oral BID for IBS-C LACTULOSE 10 GM/15ML ORAL SOLN 479824 LACTULOSE Inactive MIRALAX ORAL POWD 17GMS DAILY IN WATER MIRALAX ORAL POWD 264656 POLYETHYLENE GLYCOL 3350 Inactive CEFDINIR 300 MG CAPS by mouth twice a day CEFDINIR 300 MG CAPS 403554 CEFDINIR Inactive PREDNISONE 20 MG TAB 2 tabs daily for 3 days, 1 tab daily for 3 days, 1/2 tab daily for 2 days PREDNISONE 20 MG TAB 420189 PREDNISONE Inactive BACTRIM DS 800-160 MG TABS 1 po BID x 7 days BACTRIM DS 800-160 MG TABS 19820521 SULFAMETHOXAZOLE-TRIMETHOPRIM Inactive DIFLUCAN 150 MG TABS 1 pill every other day x 2 doses DIFLUCAN 150 MG TABS 077826 FLUCONAZOLE Inactive BACTRIM DS 800-160 MG TABS 1 pill by mouth twice daily BACTRIM DS 800-160 MG TABS 19820521 SULFAMETHOXAZOLE-TRIMETHOPRIM Inactive KEFLEX 500 MG CAP 1 po TID x 10 days KEFLEX 500 MG CAP 011530 CEPHALEXIN Inactive Advance Directives Directive Description Start [...] % 11.0-15.0 platelet count 443 THOUSAND/UL 10*3/mm3 810-049 7756/03/01 mean platelet volume 8.2 fL 7.5-12.5 leukocyte [...] % 11.0-15.0 platelet count 349 THOUSAND/UL 10*3/mm3 894-493 3983/04/12 mean platelet volume 8.4 fL 7.5-12.5 Lab Report: CBC W/DIFF, Comp. Metabolic Panel, HGBA1C, Magnesium - Chemistry sodium, serum 141 mmol/L 170-715 1786/07/24 carbon dioxide, venous blood 27.8 mmol/L 21.0-32.0 [...] 369 10^3/MM^3 10*3/mm3 142-424 Lab Report: Chlamydia/GC APTIMA/17606 - Lab chlamydia DNA probe NOT DETECTED NOT DETECTED Lab Report: Chlamydia/GC APTIMA/13888 - Microbiology Neisseria gonorrhoeae DNA probe NOT DETECTED NOT DETECTED Lab Report: Chlamydia/GC APTIMA/82868, Urinalysis, Complete, with Reflex ... - Lab chlamydia DNA probe NOT DETECTED NOT DETECTED Lab Report: Chlamydia/GC APTIMA/64439, Urinalysis, Complete, with Reflex ... - Microbiology Neisseria gonorrhoeae DNA probe NOT DETECTED NOT DETECTED Lab Report: Chlamydia/GC APTIMA/50123, Urinalysis, Complete, with Reflex ... - Urinalysis microalbumin/total urine volume 2 mg/L Units converted. See lab report for original value. microalbumin/creatinine ratio, urine 9 MCG/MG CREAT mg/L <30 Lab Report: Comp. Metabolic Panel - Chemistry sodium, serum 140 mmol/L 158-017 0382/08/08 carbon dioxide, venous blood 33.7 mmol/L 21.0-32.0 potassium, serum 5.0 mmol/L 3.5-5.2 chloride, serum 103 mmol/L 98-107 blood glucose 80 mg/dL 65-110 urea nitrogen, blood 13 mg/dL 7-18 creatinine, serum 0.88 mg/dL 0.55-1.30 alanine aminotransferase (SGPT), serum 54 U/L 12-78 aspartate aminotransferase (SGOT), serum 29 U/L 15-37 calcium, serum 9.7 mg/dL 8.5-10.1 bilirubin, serum, total 0.30 mg/dL 0.00-1.00 sodium, serum 140 mmol/L 560-506 2751/06/28 carbon dioxide, venous blood 23.8 mmol/L 21.0-32.0 [...] negative Encounters Code Encounter Date Provider Facility CPT-44627 Level 3 Est. [facility] 11:36:47 [facility] [place] 10:53[facility]17 [facility] Level 3 Est. Patient 11:08:35 CDT Suzan [facility] CPT-91424 Level 3 Est. Patient 15:55:20 CDT Suzan [facility]-14775 Level 4 Est. Patient 10:49:34 CDT Suzan [facility]-86327 Level 3 Est. Patient 10:00:25 CDT Suzan [facility] CPT-86581 Level 3 Est. Patient 10:29:30 CDT Suzan [facility] CPT-82140 Level 3 Est. Patient 11:04:38 CDT Renzo Thornton [facility]-65322 Level 3 Est. Patient 11:15:58 [employer]PERVISOR [employer] Renzo Thornton [facility] CPT-96189 Level 3 Est. Patient 15:28:23 SUPERVISOR C[employer]TING [employer]MENT Suzan Boo [facility] CPT-60885 Level 4 Est. Patient 10:20:54 SUPERVISOR C[employer]TING [employer]MENT Suzan Boo [facility] CPT-15517 Level 3 Est. Patient 11:47:37 [employer]PERVISOR C[employer]TING [employer]MENT Ahmet Carbajal MD [facility]-30457 Level 3 Est. Patient 10:40:11 SUPERVISOR C[employer]TING [employer]MENT Ahmet Carbajal MD [facility] CPT-85235 Level 3 Est. Patient 15:07:06 [employer]PERVISOR C[employer]TING [employer] Neeraj Collins MD [facility] CPT-99877 Level 4 Est. Patient 14:45:00 [employer]PERVISOR [employer] Ahmet Carbajal MD [facility] CPT-49532 Level 3 Est. Patient 13:59: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 [facility] CPT-47261 Level 3 Est. Patient 18:18:53 CDT Neeraj Collins MD [facility] CPT-64476 Level 3 Est. Patient 15:50:44 CDT Vishal Hui MD [facility] CPT-04558 Level 3 Est. Patient 11:36:17 CDT Ahmet Carbajal MD [facility] CPT-41310 Level 3 Est. Patient 13:29:16 CDT Vishal Hui MD [facility] CPT-13519 Level 3 Est. Patient 14:27:52 CDT Neeraj Collins MD [facility] CPT-52026 Level 3 Est. Patient 08:56: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 [facility] CPT-53241 Level 4 Est. Patient 12:11:[address] [facility] CPT-07804 Level 3 New Patient 16:53:37 CDT Albert Caldera MD [facility] CPT-21013 Level 3 Est. Patient 11:25:49 CDT Renzo Thornton DO [facility] CPT-03765 Level 3 Est. Patient 15:22:01 CDT Ahmet Carbajal MD [facility] CPT-10393 Level 4 Est. Patient 09:00:51 [employer]PERVISOR [employer] Vishal Hui MD [facility] CPT-22093 Level 3 Est. Patient 11:37:33 SUPERVISOR C[employer]TING [employer]MENT Vishal Hui MD [facility] CPT-91278 Level 3 Est. Patient 08:41:09 [employer]PERVISOR C[employer]TING [employer]MENT Vishal Hui MD [facility] CPT-71004 Level 4 Est. Patient 10:19:35 [employer]PERVISOR C[employer]TING [employer]MENT Vishal Hui MD [facility] CPT-37481 Level 3 Est. Patient 13:35:45 CDT Vishal Hui MD [facility] CPT-29070 Level 4 Est. Patient 10:08:37 CDT Vishal Hui MD [facility] CPT-35041 Level 3 Est. Patient 11:22:10 CDT Vishal Hui MD [facility] CPT-05177 Level 3 Est. Patient 11:03:32 CDT Sahara Rodriguez MD [facility]-44004 Level 3 Est. Patient 09:41:35 CDT Vishal Hui MD [facility] CPT-06050 Level 3 Est. Patient 12:00:41 CDT Neeraj Collins MD [facility] CPT-00949 Level 3 Est. Patient 09:16:24 CDT Vishal Hui MD [facility] CPT-22745 Level 4 Est. Patient 13:59:09 CDT Neeraj Collins MD [facility] CPT-76206 Level 3 Est. Patient 15:19:43 CDT Renzo Thornton DO [facility] CPT-66151 Level 3 Est. Patient 18:10:26 CDT Sahara Rodriguez MD [facility]-50100 Level 3 Est. Patient 14:49:50 CDT Vishal Hui MD [facility] CPT-48346 Level 4 Est. Patient 18:41:46 CDT Neeraj Collins MD [facility] CPT-64382 Level 4 Est. Patient 09:18:38 SUPERVISOR [employer]MENT Vishal Hui MD [facility]-17531 Level 3 Est. Patient 14:43:55 [employer]PERVISOR [employer]TING [employer]MENT Vishal Hui MD [facility] CPT-61330 Level 3 Est. Patient 15:26:33 SUPERVISOR C[employer]TING [employer]MENT Sahara Rodriguez MD PhD [facility] CPT-32963 Level 3 Est. Patient 10:32:14 [employer]PERVISOR [employer]TING [employer] Vishal Hui MD [facility] CPT-70400 Level 3 Est. Patient 15:12:52 [employer]PERVISOR [employer] Vishal Hui MD [facility] CPT-37055 Level 4 Est. Patient 09:19:27 CDT Vishal Hui MD [facility] CPT-20050 Level 3 Est. Patient 15:53:00 CDT Renzo Thornton [facility] CPT-99462 Level 3 Est. Patient 15:50:30 CDT Renzo Thornton [facility] CPT-66707 Level 3 Est. Patient 16:55:24 CDT Vishal Hui MD [facility] Procedures Code Procedure Name Date Entry Date Standard Description CPT-29109 UA Dip Auto (Floor Use Only) 11:36:47 CDT CPT-98807 Venipuncture Draw Fee 10:53:17 CDT CPT-49800 EKG Trac and Interp - XRAY USE ONLY 15:59:30 CDT 09/13 CPT-59462 Chest 1V Frontal - XRAY USE ONLY 15:59:30 CDT CPT-83017 Venipuncture Draw Fee 15:44:02 CDT CPT-69336 Venipuncture Draw Fee 08:41:12 CDT CPT-08605 Abd compl w upright - XRAY USE ONLY 10:27:59 CDT 06/28 CPT-15657 Smoking Cessation counseling 11:15:58 [employer]PERVISOR [employer] CPT-G0439 [facility] Annual Wellness Exam 09:30:58 [employer]OR [employer] CPT-77240 TSH - LAB USE ONLY 08:50:26 [employer]OR [employer] CPT-17410 CBC - LAB USE ONLY 08:50:26 [employer]PER[employer]OR [employer] CPT-84821 Venipuncture Draw Fee 08:50:26 [employer]PERVISOR [employer] CPT-05350 Abx/Therapy Injection 17:34:30 [employer]PER[employer]OR [employer] CPT-45186 Nexplanon Removal with Reinsertion 14:09:32 CDT CPT-J7307 Nexplanon (Implant) 14:09:32 CDT CPT-OV Office Visit 14:09:32 CDT CPT-78961 UA w micro - LAB USE ONLY 16:21:13 CDT CPT-54245 Wet Mount - LAB USE ONLY 16:21:13 CDT CPT-53331 First Vx - Ix admin for Medicare patients 14:37:47 CDT CPT-00136 Fluzone Preservative Free Intramuscular Suspension 14:37 :47 CDT CPT-29677 Abx/Therapy Injection 13:54:22 CDT CPT-41108 Abx/Therapy Injection 08:47:09 CDT CPT-48806 Abx/Therapy Injection 13:29:56 CDT CPT-71447 Abx/Therapy Injection 08:36:16 CDT CPT-27668 Wet Mount - LAB USE ONLY 17:44:58 CDT CPT-47005 UA w micro - LAB USE ONLY 17:44:58 CDT CPT-95439 CMP - LAB USE ONLY 17:44:58 CDT CPT-34497 Venipuncture Draw Fee 17:44:58 CDT CPT-01064 Cervical Min 4V - XRAY USE ONLY 09:01:40 CDT CPT-91760 Chest 2V Frontal and Lat - XRAY USE ONLY 11:06:31 CDT CPT-50289 EKG Trac and Interp - XRAY USE ONLY 11:31:43 CDT 08/26 CPT-J3420 Vitamin B12 1000mcg (Cyanocobalamin) 08:10:26 [employer]PERVISOR [employer] 04/12 CPT-59321 Abx/Therapy Injection 08:10:26 [employer]PERVISOR [employer] CPT-G0438 Initial Annual Wellness Exam 19:01:01 [employer]PERVISOR [employer] CPT-J3420 Vitamin B12 1000mcg (Cyanocobalamin) 16:57:46 CDT 08/14 CPT-24303 Recombivax HB Injection Suspension 5 MCG/0.5ML 08:37:50 [employer]PERVISOR [employer] CPT-46862 Immunization Single Admin 08:37:50 [employer]PERVISOR [employer] CPT-J3420 Vitamin B12 1000mcg (Cyanocobalamin) 08:32:16 [employer]PERVISOR [employer] 03/11 CPT-79147 Abx/Therapy Injection 08:32:16 [employer]PERVISOR [employer] CPT-20569 Chest 2V Frontal and Lat 11:46:38 [employer]PERVISOR [employer] CPT-37001 Venipuncture Draw Fee 09:12:45 [employer]PERVISOR [employer] CPT-J3420 Vitamin B12 1000mcg (Cyanocobalamin) 08:50:15 [employer]PERVISOR [employer] 02/08 CPT-92256 Abx/Therapy Injection 08:50:15 [employer]PERVISOR [employer]TING [employer] CPT-Cryo Cryotherapy 10:19:35 [employer]PER[employer]OR [employer] CPT-000 Give Appropriate Flu Vaccine 09:22:16 CDT CPT-J3420 Vitamin B12 1000mcg (Cyanocobalamin) 19:08:57 CDT 01/11 CPT-05074 Abx/Therapy Injection 19:08:57 CDT CPT-J3420 Vitamin B12 1000mcg (Cyanocobalamin) 08:19:08 CDT 12/11 CPT-71833 Abx/Therapy Injection 08:19:08 CDT CPT-J3420 Vitamin B12 1000mcg (Cyanocobalamin) 14:48:00 CDT 11/09 CPT-73825 Abx/Therapy Injection 14:47:59 CDT CPT-J3420 Vitamin B12 1000mcg (Cyanocobalamin) 08:34:04 CDT 10/09 CPT-44932 Abx/Therapy Injection 08:34:04 CDT CPT-J3420 Vitamin B12 1000mcg (Cyanocobalamin) 09:18:52 CDT 09/11 CPT-43471 Abx/Therapy Injection 09:18:52 CDT CPT-J3420 Vitamin B12 1000mcg (Cyanocobalamin) 08:35:44 CDT 09/04 CPT-63793 Abx/Therapy Injection 08:35:44 CDT CPT-03255 Immunization Single Admin 11:07:16 CDT CPT-67031 Hepatitis B adult IM 11:07:16 CDT CPT-J3420 Vitamin B12 1000mcg (Cyanocobalamin) 11:00:49 CDT 08/28 CPT-J1040 Depo Medrol 80 mg (Methyl Prednisolone Acetate) 11:00: 49 CDT CPT-20708 Abx/Therapy Injection 11:00:49 CDT CPT-J1040 Depo Medrol 80 mg (Methyl Prednisolone Acetate) 09:16: 23 CDT CPT-J3420 Vitamin B12 1000mcg (Cyanocobalamin) 08:27:05 CDT 08/20 CPT-65160 Abx/Therapy Injection 08:27:05 CDT CPT-38523 Recombivax HB Injection Suspension 5 MCG/0.5ML 10:00:41 CDT CPT-50111 Administration single or combination vaccine inc oral 10 :00:41 CDT CPT-32584 Sono transvag pelvis non OB uterus ovaries cervix 16:36: 57 CDT CPT-64425 LS spine comp w obliq 09:50:55 [employer]PERVISOR [employer] CPT-66611 Abd compl w upright 09:50:55 [employer]PERVISOR [employer] CPT-J1100 Decadron 4mg (Dexamethasone) 15:51:24 [employer]PERVISOR [employer] CPT-J1030 Depo Medrol 40 mg (Methyl Prednisolone Acetate) 15:51: 24 [employer]PERVISOR [employer] CPT-71572 Abx/Therapy Injection 15:51:24 SUPERVISOR [employer]MENT CPT-J1100 Decadron 4mg (Dexamethasone) 15:26:33 SUPERVISOR [employer] CPT-J1030 Depo Medrol 40 mg (Methyl Prednisolone Acetate) 15:26: 33 [employer]PERVISOR [employer] CPT-54307 Sono retroperitoneal complete kidneys and bladder 17:15: 30 CDT CPT-47134 Abd compl w upright 16:09:25 CDT CPT-J1100 Decadron 8mg (Dexamethasone) 17:07:57 CDT CPT-13119 Abx/Therapy Injection 17:07:57 CDT CPT-J1100 Decadron 8mg (Dexamethasone) 16:55:24 CDT CPT-19102 Chest 2V Frontal and Lat 16:32:44 CDT
--- OUTSIDE RECORDS SUMMARY | 2016-11-04 11:06 | XMS REPORT | Clinical Summary ---
Author Author Admin, Modern [employer] Organization [facility] Seen Address Unknown Phone Unavailable Allergies, Adverse Reactions, [...] Shortness of breath 786.05 Active Fabiola Johnson DOG HANDLER OR TRAINER Shortness of breath Nocturnal hypoxia 799.02 Active Fabiola Johnson DOG HAND[employer]ER OR TRAINER Hypoxemia Neck pain 723.1 Active 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 DOG HAND[employer]ER OR TRAINER Cervicalgia Vaginal discharge 623.5 Active Neeraj Collins MD Leukorrhea, not specified as infective Abdominal pain, right lower quadrant 789.03 Active Neeraj Collins MD Abdominal pain, right lower quadrant Anxiety Disorder ICD-300.00 Inactive Vishal Hui MD Pneumonia, organism unspecified ICD-486 Inactive Vishal Hui MD Flank pain, right ICD-789.09 Inactive Vishal Hui MD G E R D ICD-530.81 Jim Hui MD Smoker/tobacco use disorder-smoking cessation [...] ICD-V58.32 Jim Hui MD Hot flashes ICD-627.2 Inactive Vishal Hui MD Personality change ICD-301.9 Jim Hui MD Leukocytosis ICD-288.60 Inactive Vishal Hui MD UTI ICD-599.0 Inactive Vishal Hui MD Headache, atypical ICD-784.0 Inactive Albert Caldera MD Elevated blood glucose ICD-790.29 Jim [...] each nostril daily before bed. FLUTICASONE PROPIONATE 77354632772 Active Fabiola Johnson APRN Active VERAPAMIL HCL ER 120 MG ORAL CR-TABS 1 tab po daily for blood pressure 09/27 VERAPAMIL HCL 30032021606 Active Fabiola Johnson APRN Active ADZENYS XR-ODT 6.3 MG ORAL TBED 1 tab po daily for ADHD AMPHETAMINE 00748214270 Active Fabiola Johnson APRN Active BENADRYL 25 MG CAP 4 po at bedtime for insomnia DIPHENHYDRAMINE HCL 47283232686 Active Fabiola Johnson APRN Active KLONOPIN 1 MG ORAL TABS 1 tab po TID CLONAZEPAM 03028324682 Active Fabiola Johnson APRN Active VALIUM 5 MG TAB Take 1-2 tablets daily DIAZEPAM 74619296281 No Longer Active Fabiola Johnson APRN Active METOPROLOL TARTRATE 25 MG ORAL TABS 1/2 tablet twice daily for heart rate and blood pressure METOPROLOL TARTRATE 82314668119 No Longer Active Fabiola Johnson APRN Active MIRALAX ORAL POWD 17GMS DAILY IN WATER POLYETHYLENE GLYCOL 3350 99322904775 Active Vishal Hui MD Active VIIBRYD 10 MG ORAL TABS Take 1 tablet once a day VILAZODONE HCL 18921090251 Active Ahmet Carbajal MD Active DICLOFENAC POTASSIUM TABS Take 1 tablet twice a day (pt. is not sure of the dose.) DICLOFENAC POTASSIUM TABS 68839179903 Active Ahmet Carbajal MD Active MIRALAX PACK 1 po qd PRN Constipation POLYETHYLENE GLYCOL 3350 77389452529 No Longer Active Ahmet Carbajal MD Active MINIPRESS 2 MG CAPS 4 cap po at night PRAZOSIN HCL 14575977271 No Longer Active Ahmet Carbajal MD Active PIROXICAM 20 MG CAPS 1 cap po qd PRN Pain PIROXICAM 75834114131 No Longer Active Ahmet Carbajal MD Active TRAMADOL HCL 50 MG TABS 1-2 po TID PRN Pain TRAMADOL HCL 38823315189 No Longer Active Ahmet Carbajal MD Active METOPROLOL TARTRATE 50 MG TAB 1 po bid METOPROLOL TARTRATE 91363859305 No Longer Active Ahmet Carbajal MD Active ABILIFY 15 MG ORAL TABS 1 tab daily ARIPIPRAZOLE 98206408088 No Longer Active Ahmet Carbajal MD Active PROZAC 20 MG ORAL CAPS 1 tab daily FLUOXETINE HCL 46005842316 No Longer Active Ahmet Carbajal MD Active AMBIEN 5 MG ORAL TABS 1 tab at bedtime ZOLPIDEM TARTRATE 15758166256 No Longer Active Ahmet Carbajal MD Active PREDNISONE 20 MG TAB 2 tabs daily for 4 days, 1 tab daily for 4 days, 1/2 tab daily for 4 days PREDNISONE 90208989973 No Longer Active Ahmet Carbajal MD Active KEFLEX 500 MG CAP 1 po TID x 10 days CEPHALEXIN 19544558327 No Longer Active Vishal Hui MD Active ABILIFY MAINTENA 400 MG IM SUSR Injection once per month ARIPIPRAZOLE 30144528424 Active Juliet Kimbrough DOG HAND[employer]ER OR TRAINER Active IMITREX 50 MG ORAL TABS 1/2 tab every 6 hours prn SUMATRIPTAN SUCCINATE 70955749386 Active 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 APRN Active TOPAMAX 50 MG ORAL TABS 1 tab twice daily TOPIRAMATE 69025246127 Active Vishal Hui MD Active SAPHRIS 5 MG SUBL 1 po bid ASENAPINE MALEATE 73382269204 No Longer Active 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 APRN Active LATUDA 80 MG TABS Take one by mouth daily LURASIDONE HCL 81330402154 No Longer Active 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 DOG HANDLER OR TRAINER Active AMLODIPINE BESYLATE 5 MG TABS 1 tablet by mouth daily AMLODIPINE BESYLATE 30810272238 No Longer Active 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 APRN Active AMITRIPTYLINE HCL 100 MG TAB one at hs AMITRIPTYLINE HCL 71003662727 No Longer Active Vishal Hui MD Active TRAZODONE HCL 100 MG TAB take 1 at bedtime TRAZODONE HCL 88464235765 No Longer Active Vishal Hui MD Active VYVANSE 40 MG CAPS 1 daily, LISDEXAMFETAMINE DIMESYLATE 63801211955 No Longer Active Vishal Hui MD Active IBUPROFEN 600 MG TAB 1 po TID PRN IBUPROFEN 25541947438 No Longer Active Vishal Hui MD Active PROZAC 20 MG CAP Take one by mouth daily FLUOXETINE HCL 31284965171 No Longer Active Vishal Hui MD Active ZOFRAN 4 MG TABS 1 po q6hr PRN Nausea ONDANSETRON HCL Active Vishal Hui MD Active BACTRIM DS 800-160 MG TABS 1 pill by mouth twice daily SULFAMETHOXAZOLE-TRIMETHOPRIM 74004847139 No Longer Active Sahara Rodriguez MD PhD Active DIFLUCAN 150 MG TAB 1 tablet by mouth daily FLUCONAZOLE 36420926379 No Longer Active Vishal Hui MD Active TIZANIDINE HCL 4 MG TABS 1 po q6hr PRN Muscle Spasm/Back Pain TIZANIDINE HCL 18085720552 Active Vishal Hui MD Active CLINDAMYCIN HCL 150 MG CAPS 1 four times a day CLINDAMYCIN HCL 52247498028 No Longer Active Neeraj Collins MD Active KEFLEX 500 MG ORAL CAPS 1 cap QID by mouth CEPHALEXIN 38359500974 No Longer Active Neeraj Collins MD Active DIFLUCAN 150 MG TABS 1 pill every other day x 2 doses FLUCONAZOLE 10283040565 No Longer Active Sahara Rodriguez MD PhD Active MELATONIN 3 MG CAPS 2 po q hs MELATONIN 06077208775 No Longer Active Sahara Rodriguez MD PhD Active MULTIVITAMINS CAPS Take one by mouth daily MULTIPLE VITAMIN 37655903491 No Longer Active Sahara Rodriguez MD PhD Active BACTRIM DS 800-160 MG TAB 1 tab by mouth twice daily TRIMETHOPRIM-SULFAMETHOXAZOLE 39015524579 No Longer Active Sahara Rodriguez MD PhD Active [facility] PROBIOTIC ORAL CHEW 2 daily po PROBIOTIC PRODUCT 85722345548 No Longer Active Sahara Rodriguez MD PhD Active BACTRIM DS 800-160 MG TABS 1 po BID x 7 days SULFAMETHOXAZOLE-TRIMETHOPRIM 42060785439 No Longer Active Vishal Hui MD Active CHANTIX STARTING MONTH EARNEST 0.5 MG X 11 & 1 MG X 42 TABS 0.5mg daily for 3 days , then 0.5mg BID for 4 days, then 1mg BID VARENICLINE TARTRATE 17349487239 No Longer Active TAMARA Gray Active VERAPAMIL HCL CR 120 MG TAB CR 1 po bid VERAPAMIL HCL 85980886572 No Longer Active Vishal Hui MD Active METOPROLOL SUCCINATE 50 MG TB24 1 tablet by mouth daily METOPROLOL SUCCINATE 96216713717 No Longer Active Vishal Hui MD Active SAPHRIS 10 MG SUBL 1 tab po bid ASENAPINE MALEATE 73394194557 No Longer Active Vishal Hui MD Active LISINOPRIL 20 MG TABS 1 tab po qd LISINOPRIL 72459507294 No Longer Active Vishal Hui MD Active LATUDA 20 MG TABS Take one by mouth daily LURASIDONE HCL 28136821659 No Longer Active Vishal Hui MD Active TRAZODONE HCL 50 MG TABS 1/2 tab po qd prn for anxiety TRAZODONE HCL 37134009155 No Longer Active Vishal Hui MD Active OMEPRAZOLE 20 MG TBEC 1 po q a.m. 30min prior to first food intake OMEPRAZOLE 45425330452 Active Vishal Hui MD Active RANITIDINE HCL 150 MG CAPS 1 twice a day RANITIDINE HCL 88696609623 Active Jillina Messizell DOG HANDLER OR TRAINER Active LINZESS 290 MCG CAPS Take one by mouth daily LINACLOTIDE 06713785941 No Longer Active Vishal Hui MD Active SAPHRIS 5 MG SUBL 1 tab po qd ASENAPINE MALEATE 84583431000 No Longer Active Vishal Hui MD Active ZALEPLON 10 MG CAPS 1 cap po every other night ZALEPLON 95479287155 No Longer Active Vishal Hui MD Active LYRICA 50 MG CAPS 1 tab po TID PREGABALIN 86123330546 No Longer Active Vishal Hui MD Active LORATADINE 10 MG TABS 1 tab po qd LORATADINE 63240190881 No Longer Active Vishal Hui MD Active VERAPAMIL HCL ER 180 MG CR-TABS 1 tab po bid VERAPAMIL HCL 78516106717 No Longer Active Vishal Hui MD Active MIRALAX POWD 1 capfull once daily POLYETHYLENE GLYCOL 3350 13471921506 No Longer Active Vishal Hui MD Active PREDNISONE 20 MG TABS 1 tab po qd PREDNISONE 76572750677 No Longer Active Renzo Thornton DO Active LEVOFLOXACIN 500 MG TABS 1 tab po qd LEVOFLOXACIN 91609744774 No Longer Active Renzo Thornton DO Active BUSPIRONE HCL 15 MG TABS 1 tab po TID BUSPIRONE HCL 20044007966 No Longer Active Renzo Thornton DO Active BENZTROPINE MESYLATE 1 MG TABS 1 tab po qd BENZTROPINE MESYLATE 87423966217 No Longer Active Renzo Thornton DO Active ATENOLOL 25 MG TABS 1 tab po qd ATENOLOL 99993028392 No Longer Active Renzo Thornton DO Active ESCITALOPRAM OXALATE 20 MG TABS 1 tab po qd ESCITALOPRAM OXALATE 69109649612 No Longer Active Renzo Thornton DO Active ADVAIR DISKUS 250-50 MCG/DOSE AEPB 1 puff BID FLUTICASONE-SALMETEROL 21304087164 No Longer Active Renzo Thornton DO Active PREDNISONE 20 MG TAB 2 tabs daily for 3 days, 1 tab daily for 3 days, 1/2 tab daily for 2 days PREDNISONE 58703061912 No Longer Active Vishal Hui MD Active CEFDINIR 300 MG CAPS by mouth twice a day CEFDINIR 85787960988 No Longer Active Vishal Hui MD Active LANSOPRAZOLE 30 MG CPDR 1 cap po qd LANSOPRAZOLE 26784186776 No Longer Active Vishal Hui MD Active BACLOFEN 20 MG TABS 1 tab po tid BACLOFEN 40384307318 No Longer Active Vishal Hui MD Active ADVAIR DISKUS 250-50 MCG/DOSE AEPB 1 puff BID ADVAIR DISKUS 250-50 MCG/DOSE AEPB FLUTICASONE-SALMETEROL Inactive ESCITALOPRAM OXALATE 20 MG TABS 1 tab po qd ESCITALOPRAM OXALATE 20 MG TABS 369559 ESCITALOPRAM OXALATE Inactive ATENOLOL 25 MG TABS 1 tab po qd ATENOLOL 25 MG TABS 326241 ATENOLOL Inactive BENZTROPINE MESYLATE 1 MG TABS 1 tab po qd BENZTROPINE MESYLATE 1 MG TABS 967778 BENZTROPINE MESYLATE Inactive BUSPIRONE HCL 15 MG TABS 1 tab po TID BUSPIRONE HCL 15 MG TABS 321150 BUSPIRONE HCL Inactive LEVOFLOXACIN 500 MG TABS 1 tab po qd LEVOFLOXACIN 500 MG TABS 163902 LEVOFLOXACIN Inactive PREDNISONE 20 MG TABS 1 tab po qd PREDNISONE 20 MG TABS 639816 PREDNISONE Inactive MIRALAX POWD 1 capfull once daily MIRALAX POWD 323361 POLYETHYLENE GLYCOL 3350 Inactive VERAPAMIL HCL ER 180 MG CR-TABS 1 tab po bid VERAPAMIL HCL ER 180 MG CR-TABS VERAPAMIL HCL Inactive LORATADINE 10 MG TABS 1 tab po qd LORATADINE 10 MG TABS 389071 LORATADINE Inactive LYRICA 50 MG CAPS 1 tab po TID LYRICA 50 MG CAPS PREGABALIN Inactive ZALEPLON 10 MG CAPS 1 cap po every other night ZALEPLON 10 MG CAPS 405355 ZALEPLON Inactive SAPHRIS 5 MG SUBL 1 tab po qd SAPHRIS 5 MG SUBL ASENAPINE MALEATE Inactive TRAZODONE HCL 50 MG TABS 1/2 tab po qd prn for anxiety TRAZODONE HCL 50 MG TABS 916561 TRAZODONE HCL Inactive LATUDA 20 MG TABS Take one by mouth daily LATUDA 20 MG TABS LURASIDONE HCL Inactive LISINOPRIL 20 MG TABS 1 tab po qd LISINOPRIL 20 MG TABS 456726 LISINOPRIL Inactive SAPHRIS 10 MG SUBL 1 [...] twice daily BACTRIM DS 800-160 MG TAB 123349 TRIMETHOPRIM-SULFAMETHOXAZOLE Inactive MULTIVITAMINS CAPS Take one by mouth daily MULTIVITAMINS CAPS MULTIPLE VITAMIN Inactive MELATONIN 3 MG CAPS 2 po q hs MELATONIN 3 MG CAPS 074974 MELATONIN Inactive KEFLEX 500 MG ORAL CAPS 1 cap QID by mouth KEFLEX 500 MG ORAL CAPS 677178 CEPHALEXIN Inactive CLINDAMYCIN HCL 150 MG CAPS 1 four times a day CLINDAMYCIN HCL 150 MG CAPS 675378 CLINDAMYCIN HCL Inactive DIFLUCAN 150 MG TAB 1 tablet by mouth daily DIFLUCAN 150 MG TAB 295046 FLUCONAZOLE Inactive PROZAC 20 MG CAP Take one by mouth daily PROZAC 20 MG CAP 047123 FLUOXETINE HCL Inactive IBUPROFEN 600 MG TAB 1 po TID PRN IBUPROFEN 600 MG TAB 453638 IBUPROFEN Inactive VYVANSE 40 MG CAPS 1 daily, VYVANSE 40 MG CAPS LISDEXAMFETAMINE DIMESYLATE Inactive TRAZODONE HCL 100 MG TAB take 1 at bedtime TRAZODONE HCL 100 MG TAB 514414 TRAZODONE HCL Inactive AMITRIPTYLINE HCL 100 MG TAB one at hs AMITRIPTYLINE HCL 100 MG TAB 895378 AMITRIPTYLINE HCL Inactive AMLODIPINE BESYLATE 5 MG TABS 1 tablet by mouth daily AMLODIPINE BESYLATE 5 MG TABS 595501 AMLODIPINE BESYLATE Inactive LATUDA 80 MG TABS Take one by mouth daily LATUDA 80 MG TABS LURASIDONE HCL Inactive SAPHRIS 5 MG SUBL 1 po bid SAPHRIS 5 MG SUBL ASENAPINE MALEATE Inactive PREDNISONE 20 MG TAB 2 tabs daily for 4 days, 1 tab daily for 4 days, 1/2 tab daily for 4 days PREDNISONE 20 MG TAB 386258 PREDNISONE Inactive AMBIEN 5 MG ORAL TABS 1 tab at bedtime AMBIEN 5 MG ORAL TABS 254803 ZOLPIDEM TARTRATE Inactive PROZAC 20 MG ORAL CAPS 1 tab daily PROZAC 20 MG ORAL CAPS 534728 FLUOXETINE HCL Inactive ABILIFY 15 MG ORAL TABS 1 tab daily ABILIFY 15 MG ORAL TABS 667021 ARIPIPRAZOLE Inactive METOPROLOL TARTRATE 50 MG TAB 1 po bid METOPROLOL TARTRATE 50 MG TAB 172496 METOPROLOL TARTRATE Inactive TRAMADOL HCL 50 MG TABS 1-2 po TID PRN Pain TRAMADOL HCL 50 MG TABS 633854 TRAMADOL HCL Inactive PIROXICAM 20 MG CAPS 1 cap po qd PRN Pain PIROXICAM 20 MG CAPS 263107 PIROXICAM Inactive MINIPRESS 2 MG CAPS 4 cap po at night MINIPRESS 2 MG CAPS 539574 PRAZOSIN HCL Inactive MIRALAX PACK 1 po qd PRN Constipation MIRALAX PACK 223264 POLYETHYLENE GLYCOL 3350 Inactive METOPROLOL TARTRATE 25 MG ORAL TABS 1/2 tablet twice daily for heart rate and blood pressure METOPROLOL TARTRATE 25 MG ORAL TABS 610588 METOPROLOL TARTRATE Inactive VALIUM 5 MG TAB Take 1-2 tablets daily VALIUM 5 MG TAB 949705 DIAZEPAM Inactive CEFDINIR 300 MG CAPS by mouth twice a day CEFDINIR 300 MG CAPS 630488 CEFDINIR Inactive PREDNISONE 20 MG TAB 2 tabs daily for 3 days, 1 tab daily for 3 days, 1/2 tab daily for 2 days PREDNISONE 20 MG TAB 640447 PREDNISONE Inactive BACTRIM DS 800-160 MG TABS 1 po BID x 7 days BACTRIM DS 800-160 MG TABS 19820521 SULFAMETHOXAZOLE-TRIMETHOPRIM Inactive DIFLUCAN 150 MG TABS 1 pill every other day x 2 doses DIFLUCAN 150 MG TABS 026686 FLUCONAZOLE Inactive BACTRIM DS 800-160 MG TABS 1 pill by mouth twice daily BACTRIM DS 800-160 MG TABS 19820521 SULFAMETHOXAZOLE-TRIMETHOPRIM Inactive KEFLEX 500 MG CAP 1 po TID x 10 days KEFLEX 500 MG CAP 806294 CEPHALEXIN Inactive Advance Directives Directive Description Start [...] % 11.6-14.8 platelet count 394 10^3/MM^3 10*3/mm3 141-478 8845/01/11 leukocyte count, blood 13.8 10^3/MM^3 10*3/mm3 4.6-10.2 [...] Panel - Chemistry sodium, serum 139 mmol/L 710-284 3551/12/03 carbon dioxide, venous blood 28.5 mmol/L 21.0-32.0 [...] 5.5 % 4.3-6.0 cholesterol, serum 159 mg/dL 276-975 3390/12/03 triglyceride, serum, fasting 118 mg/dL 30-200 HDL [...] Panel - Chemistry sodium, serum 139 mmol/L 571-153 6741/12/22 carbon dioxide, venous blood 26.8 mmol/L 21.0-32.0 potassium, serum 4.2 mmol/L 3.5-5.2 chloride, serum 103 mmol/L 98-107 blood glucose 115 mg/dL 65-110 urea nitrogen, blood 20 mg/dL 7-18 creatinine, serum 0.90 mg/dL 0.55-1.30 alanine aminotransferase (SGPT), serum 38 U/L aspartate aminotransferase (SGOT), serum 19 U/L 15-37 calcium, serum 8.6 mg/dL 8.5-10.1 bilirubin, serum, total 0.30 mg/dL 0.00-1.00 sodium, serum 139 mmol/L 254-077 3938/01/11 carbon dioxide, venous blood 26.6 mmol/L 21.0-32.0 potassium, serum 4.1 mmol/L 3.5-5.2 chloride, serum 100 mmol/L 98-107 blood glucose 86 mg/dL 65-110 urea nitrogen, blood 16 mg/dL 7-18 creatinine, serum 1.00 mg/dL 0.55-1.30 alanine aminotransferase (SGPT), serum 48 U/L aspartate aminotransferase (SGOT), serum 17 U/L 15-37 calcium, serum 9.1 mg/dL 8.5-10.1 bilirubin, serum, total 0.40 mg/dL 0.00-1.00 sodium, serum 142 mmol/L 283-893 6255/06/08 carbon dioxide, venous blood 27.6 mmol/L 21.0-32.0 potassium, serum 4.0 mmol/L 3.5-5.2 chloride, serum 105 mmol/L 98-107 blood glucose 95 mg/dL 65-110 urea nitrogen, blood 8 mg/dL 7-18 creatinine, serum 0.75 mg/dL 0.55-1.30 alanine aminotransferase (SGPT), serum 49 U/L 12-78 aspartate aminotransferase (SGOT), serum 28 U/L 15-37 calcium, serum 9.4 mg/dL 8.5-10.1 bilirubin, serum, total 0.30 mg/dL 0.00-1.00 sodium, serum 140 mmol/L 055-905 8784/08/08 carbon dioxide, venous blood 33.7 mmol/L 21.0-32.0 [...] Rate - Chemistry sodium, serum 139 mmol/L 589-131 1238/12/11 carbon dioxide, venous blood 25.4 mmol/L 21.0-32.0 [...] mg/dL Encounters Code Encounter Date Provider Facility CPT-42339 Level 3 Est. Patient 14:27:52 CDT Neeraj Collins MD [facility] CPT-78262 Level 3 Est. Patient 08:56:03 CDT 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 [facility] CPT-33134 Level 4 Est. Patient 12:11:48 CDT Fabiola Johnson [facility] CPT-41118 Level 3 New Patient 16:53:37 CDT Albert Caldera MD [facility] CPT-40145 Level 3 Est. Patient 11:25:49 CDT Renzo Thornton DO [facility] CPT-69519 Level 3 Est. Patient 15:22:01 CDT Ahmet Carbajal MD [facility] CPT-39335 Level 4 Est. Patient 09:00:51 PORTFOLIO DIRECTOR Vishal Hui MD [facility] CPT-22429 Level 3 Est. Patient 11:37:33 PORTFOLIO DIRECTOR Vishal Hui MD [facility] CPT-03149 Level 3 Est. Patient 08:41:09 PORTFOLIO DIRECTOR Vishal Hui MD [facility] CPT-69348 Level 4 Est. Patient 10:19:35 PORTFOLIO DIRECTOR Vishal Hui MD [facility] CPT-24846 Level 3 Est. Patient 13:35:45 CDT Vishal Hui MD [facility] CPT-47784 Level 4 Est. Patient 10:08:37 CDT Vishal Hui MD [facility] CPT-47700 Level 3 Est. Patient 11:22:10 CDT Vishal Hui MD [facility] CPT-32906 Level 3 Est. Patient 11:03:32 CDT Sahara Rodriguez MD PhD [facility] CPT-48445 Level 3 Est. Patient 09:41:35 CDT Vishal Hui MD [facility] CPT-98853 Level 3 Est. Patient 12:00:41 CDT Neeraj Collins MD [facility] CPT-54988 Level 3 Est. Patient 09:16:24 CDT Vishal Hui MD [facility] CPT-67900 Level 4 Est. Patient 13:59:09 CDT Neeraj Collins MD [facility] CPT-22486 Level 3 Est. Patient 15:19:43 CDT Renzo Thornton DO [facility] CPT-80737 Level 3 Est. Patient 18:10:26 CDT Sahara Rodriguez MD [facility]-[id number] Level 3 Est. Patient 14:49:50 CDT Vishal Hui MD [facility] CPT-31819 Level 4 Est. Patient 18:41:46 CDT Neeraj Collins MD [facility] CPT-18077 Level 4 Est. Patient 09:18:38 PORTFOLIO DIRECTOR Vishal Hui MD [facility] CPT-05385 Level 3 Est. Patient 14:43:55 PORTFOLIO DIRECTOR Vishal Hui MD [facility] CPT-42169 Level 3 Est. Patient 15:26:33 PORTFOLIO DIRECTOR Sahara Rodriguez MD PhD [facility] CPT-25093 Level 3 Est. Patient 10:32:14 PORTFOLIO DIRECTOR Vishal Hui MD [facility] CPT-36553 Level 3 Est. Patient 15:12:52 PORTFOLIO DIRECTOR Vishal Hui MD [facility] CPT-36251 Level 4 Est. Patient 09:19:27 CDT Vishal Hui MD [facility] CPT-05274 Level 3 Est. Patient 15:53:00 CDT Renzo Thornton DO [facility] CPT-88142 Level 3 Est. Patient 15:50:30 CDT Renzo Thornton DO [facility] CPT-52291 Level 3 Est. Patient 16:55:24 CDT Vishal Hui MD [facility] Procedures Code Procedure Name Date Entry Date Standard Description CPT-64790 Wet Mount - LAB USE ONLY 17:44:58 CDT CPT-09877 UA w micro - LAB USE ONLY 17:44:58 CDT CPT-10433 CMP - LAB USE ONLY 17:44:58 CDT CPT-59928 Venipuncture Draw Fee 17:44:58 CDT CPT-85790 Cervical Min 4V - XRAY USE ONLY 09:01:40 CDT CPT-42795 Chest 2V Frontal and Lat - XRAY USE ONLY 11:06:31 CDT CPT-04240 EKG Trac and Interp - XRAY USE ONLY 11:31:43 CDT 08/26 CPT-J3420 Vitamin B12 1000mcg (Cyanocobalamin) 08:10:26 PORTFOLIO DIRECTOR 04/12 CPT-15743 Abx/Therapy Injection 08:10:26 PORTFOLIO DIRECTOR CPT-G0438 Initial Annual Wellness Exam 19:01:01 PORTFOLIO DIRECTOR CPT-J3420 Vitamin B12 1000mcg (Cyanocobalamin) 16:57:46 CDT 08/14 CPT-94431 Recombivax HB Injection Suspension 5 MCG/0.5ML 08:37:50 PORTFOLIO DIRECTOR CPT-80846 Immunization Single Admin 08:37:50 PORTFOLIO DIRECTOR CPT-J3420 Vitamin B12 1000mcg (Cyanocobalamin) 08:32:16 PORTFOLIO DIRECTOR 03/11 CPT-84132 Abx/Therapy Injection 08:32:16 PORTFOLIO DIRECTOR CPT-44803 Chest 2V Frontal and Lat 11:46:38 PORTFOLIO DIRECTOR CPT-09460 Venipuncture Draw Fee 09:12:45 PORTFOLIO DIRECTOR CPT-J3420 Vitamin B12 1000mcg (Cyanocobalamin) 08:50:15 PORTFOLIO DIRECTOR 02/08 CPT-65925 Abx/Therapy Injection 08:50:15 PORTFOLIO DIRECTOR CPT-Cryo Cryotherapy 10:19:35 PORTFOLIO DIRECTOR CPT-000 Give Appropriate Flu Vaccine 09:22:16 CDT CPT-J3420 Vitamin B12 1000mcg (Cyanocobalamin) 19:08:57 CDT 01/11 CPT-11349 Abx/Therapy Injection 19:08:57 CDT CPT-J3420 Vitamin B12 1000mcg (Cyanocobalamin) 08:19:08 CDT 12/11 CPT-69524 Abx/Therapy Injection 08:19:08 CDT CPT-J3420 Vitamin B12 1000mcg (Cyanocobalamin) 14:48:00 CDT 11/09 CPT-48738 Abx/Therapy Injection 14:47:59 CDT CPT-J3420 Vitamin B12 1000mcg (Cyanocobalamin) 08:34:04 CDT 10/09 CPT-16579 Abx/Therapy Injection 08:34:04 CDT CPT-J3420 Vitamin B12 1000mcg (Cyanocobalamin) 09:18:52 CDT 09/11 CPT-25354 Abx/Therapy Injection 09:18:52 CDT CPT-J3420 Vitamin B12 1000mcg (Cyanocobalamin) 08:35:44 CDT 09/04 CPT-96467 Abx/Therapy Injection 08:35:44 CDT CPT-85393 Immunization Single Admin 11:07:16 CDT CPT-24795 Hepatitis B adult IM 11:07:16 CDT CPT-J3420 Vitamin B12 1000mcg (Cyanocobalamin) 11:00:49 CDT 08/28 CPT-J1040 Depo Medrol 80 mg (Methyl Prednisolone Acetate) 11:00: 49 CDT CPT-47746 Abx/Therapy Injection 11:00:49 CDT CPT-J1040 Depo Medrol 80 mg (Methyl Prednisolone Acetate) 09:16: 23 CDT CPT-J3420 Vitamin B12 1000mcg (Cyanocobalamin) 08:27:05 CDT 08/20 CPT-77888 Abx/Therapy Injection 08:27:05 CDT CPT-87939 Recombivax HB Injection Suspension 5 MCG/0.5ML 10:00:41 CDT CPT-23497 Administration single or combination vaccine inc oral 10 :00:41 CDT CPT-09697 Sono transvag pelvis non OB uterus ovaries cervix 16:36: 57 CDT CPT-90855 LS spine comp w obliq 09:50:55 PORTFOLIO DIRECTOR CPT-47851 Abd compl w upright 09:50:55 PORTFOLIO DIRECTOR CPT-J1100 Decadron 4mg (Dexamethasone) 15:51:24 PORTFOLIO DIRECTOR CPT-J1030 Depo Medrol 40 mg (Methyl Prednisolone Acetate) 15:51: 24 PORTFOLIO DIRECTOR CPT-25673 Abx/Therapy Injection 15:51:24 PORTFOLIO DIRECTOR CPT-J1100 Decadron 4mg (Dexamethasone) 15:26:33 PORTFOLIO DIRECTOR CPT-J1030 Depo Medrol 40 mg (Methyl Prednisolone Acetate) 15:26: 33 PORTFOLIO DIRECTOR CPT-52292 Sono retroperitoneal complete kidneys and bladder 17:15: 30 CDT CPT-99887 Abd compl w upright 16:09:25 CDT CPT-J1100 Decadron 8mg (Dexamethasone) 17:07:57 CDT CPT-66802 Abx/Therapy Injection 17:07:57 CDT CPT-J1100 Decadron 8mg (Dexamethasone) 16:55:24 CDT CPT-27542 Chest 2V Frontal and Lat 16:32:44 CDT
--- OUTSIDE RECORDS SUMMARY | 2016-11-04 11:08 | XMS REPORT | Clinical Summary ---
Author Author Admin, E Organization [facility] Address Unknown Phone Unavailable Allergies, [...] breath Nocturnal hypoxia 799.02 Active Fabiola Johnson BEARINGIZER Hypoxemia Neck pain 723.1 Resolved Vishal Hui [...] DYSURIA 788.1 Active 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 APRN Dysuria Contraceptive management V25.09 Active Dipika Burgos MD Encounter for other general counseling and advice on contraceptive management Pneumonia, organism unspecified ICD-486 Inactive Vishal Hui MD Flank pain, right ICD-789.09 Jim Hui MD G E R D ICD-530.81 Inactive Vishal Hui MD Smoker/tobacco use disorder-smoking cessation discussed ICD-305.1 Inactive Vishal Hui MD Anxiety Disorder ICD-300.00 Inactive Vishal Hui MD Cellulitis ICD-682.9 Inactive [...] Personality change ICD-301.9 Inactive Vishal Hui MD Abdominal pain ICD-789.00 Inactive Vishal Hui MD Leukocytosis ICD-288.60 Inactive Vishal Hui MD UTI ICD-599.0 Inactive Vishal Hui MD Elevated blood glucose ICD-790.29 Inactive Vishal Hui MD Localized adiposity ICD-278.1 Inactive Vishal Hui MD Shortness of breath ICD-786.05 Inactive Vishal Hui MD Neck pain ICD-723.1 Inactive Vishal Hui MD Vaginal discharge ICD-623.5 Inactive Vishal Hui MD Abdominal pain, right lower quadrant ICD-789.03 Inactive Vishal Hui MD Calf pain, left ICD-729.5 Inactive Vishal Hui MD Asthma, acute ICD-493.92 Inactive Vishal Hui MD Gait unsteady ICD-781.2 Inactive Albert Caldera MD Lipoma ICD-214.9 Inactive Albert Caldera MD Abdominal pain, RUQ ICD-789.01 Inactive Albert Caldera MD Chest pain, acute ICD-786.50 Inactive Albert Caldera MD Headache, atypical ICD-784.0 Inactive Albert Caldera MD Medication List Medication Instructions Start Date Stop Date Generic Name NDC Status Provider Patient Instruction CHANTIX 1 MG TABS 1 twice a day to help quit smoking VARENICLINE TARTRATE 05571129496 No Longer Active Dipika Burgos MD Active CHANTIX STARTING MONTH EARNEST 0.5 MG X 11 & 1 MG X 42 TABS take as directed 2015 VARENICLINE TARTRATE 43247435844 No Longer Active Dipika Burgos MD Active MONISTAT 7 COMBO PACK WOODROW 100 & 2 MG-% (9GM) VAG KIT 1 applicatorful per vagina q pm x 7 MICONAZOLE NITRATE 90568056076 Active Jillina Johnl BEARINGIZER Active FLAGYL 500 MG TAB 1 tablet by mouth bid METRONIDAZOLE 09083710553 Active Jillina Frazell BEARINGIZER Active TESSALON PERLES 100 MG CAP 1 to 2 tablets by mouth 3 times daily as needed for cough BENZONATATE 78031028140 No Longer Active Jillina Fradwightl BEARINGIZER Active ABILIFY MAINTENA 400 MG IM SUSR 400mg injection every 26 days ARIPIPRAZOLE 99854482956 Active Silvia Casey ENGINEERING LAB TECHNICIAN Active IMITREX 50 MG ORAL TABS 0.5 po x 1 PRN Headache. May repeat dose x 1 in 2 hours if needed SUMATRIPTAN SUCCINATE 57879418644 Active Vishal Hui MD Active OXYCODONE HCL ER 10 MG ORAL T12A 1/2 tab by mouth every 4 hours prn OXYCODONE HCL 75435941398 Active Neeraj Collins MD Active METHYLPREDNISOLONE 4 MG ORAL TABS po daily METHYLPREDNISOLONE 73865825731 Active Vishal Hui MD Active LEVOFLOXACIN 500 MG ORAL TABS po daily LEVOFLOXACIN 12610761930 Active Vishal Hui MD Active HYDROCODONE-ACETAMINOPHEN 5-325 MG TABS 1 to 2 four times a day as needed for pain use until can be seen by specialist HYDROCODONE- ACETAMINOPHEN 54644531446 No Longer Active Vishal Hui MD Active PROAIR HFA 108 (90 BASE) MCG/ACT AERS 2 puffs four times a day as needed 2015 ALBUTEROL SULFATE 10304473406 No Longer Active Vishal Hui MD Active PREDNISONE 20 MG TABS 2 daily for 5 days then 1 daily for 5 days PREDNISONE 94905658718 No Longer Active Vishal Hui MD Active ZITHROMAX Z-EARNEST 250 MG TABS 2 today and then 1 daily for 4 days AZITHROMYCIN 37198873368 No Longer Active Vishal Hui MD Active DICLOFENAC SODIUM 50 MG TBEC 1 tablet by mouth four times daily PRN Pain 2015 DICLOFENAC SODIUM 58152836165 Active Vishal Hui MD Active DICLOFENAC POTASSIUM TABS Take 1 tablet twice a day (pt. is not sure of the dose.) DICLOFENAC POTASSIUM TABS 49869527108 No Longer Active Vishal Hui MD Active VERAPAMIL HCL ER 120 MG ORAL CR-TABS Take 1 tablet by mouth twice a day. VERAPAMIL HCL 97045225640 Active Vishal Hui MD Active FLAGYL 500 MG TAB 1 tablet by mouth bid METRONIDAZOLE 24673105852 No Longer Active Vishal Hui MD Active FLUTICASONE PROPIONATE 50 MCG/ACT SUSP 2 sprays each nostril daily before bed. FLUTICASONE PROPIONATE 07197160527 Active Fabiola Johnson APRN Active ADZENYS XR-ODT 6.3 MG ORAL TBED 1 tab po daily for ADHD AMPHETAMINE 18555352390 Active Fabiola Johnson APRN Active BENADRYL 25 MG CAP 4 po at bedtime for insomnia DIPHENHYDRAMINE HCL 86075683775 Active Fabiola Johnson APRN Active KLONOPIN 1 MG ORAL TABS 1 tab po TID CLONAZEPAM 36164202239 Active Fabiola Johnson APRN Active VALIUM 5 MG TAB Take 1-2 tablets daily DIAZEPAM 19728553565 No Longer Active Fabiola Johnson APRN Active METOPROLOL TARTRATE 25 MG ORAL TABS 1/2 tablet twice daily for heart rate and blood pressure METOPROLOL TARTRATE 77572374550 No Longer Active Fabiola Johnson APRN Active MIRALAX ORAL POWD 17GMS DAILY IN WATER POLYETHYLENE GLYCOL 3350 44950230089 Active Vishal Hui MD Active VIIBRYD 10 MG ORAL TABS Take 1 tablet once a day VILAZODONE HCL 70243859076 Active Ahmet Carbajal MD Active MIRALAX PACK 1 po qd PRN Constipation POLYETHYLENE GLYCOL 3350 88430664604 No Longer Active Ahmet Carbajal MD Active MINIPRESS 2 MG CAPS 4 cap po at night PRAZOSIN HCL 24838167430 No Longer Active Ahmet Carbajal MD Active PIROXICAM 20 MG CAPS 1 cap po qd PRN Pain PIROXICAM 61209510213 No Longer Active Ahmet Carbajal MD Active TRAMADOL HCL 50 MG TABS 1-2 po TID PRN Pain TRAMADOL HCL 26406013251 No Longer Active Ahmet Carbajal MD Active METOPROLOL TARTRATE 50 MG TAB 1 po bid METOPROLOL TARTRATE 62354293085 No Longer Active Ahmet Carbajal MD Active ABILIFY 15 MG ORAL TABS 1 tab daily ARIPIPRAZOLE 25067060759 No Longer Active Ahmet Carbajal MD Active PROZAC 20 MG ORAL CAPS 1 tab daily FLUOXETINE HCL 44897683059 No Longer Active Ahmet Carbajal MD Active AMBIEN 5 MG ORAL TABS 1 tab at bedtime ZOLPIDEM TARTRATE 67358545391 No Longer Active Ahmet Carbajal MD Active PREDNISONE 20 MG TAB 2 tabs daily for 4 days, 1 tab daily for 4 days, 1/2 tab daily for 4 days PREDNISONE 10455853872 No Longer Active Ahmet Carbajal MD Active KEFLEX 500 MG CAP 1 po TID x 10 days CEPHALEXIN 95338793178 No Longer Active Vishal Hui MD Active TOPAMAX 50 MG ORAL TABS 1 tab twice daily TOPIRAMATE 60094784579 Active Vishal Hui MD Active SAPHRIS 5 MG SUBL 1 po bid ASENAPINE MALEATE 73178359200 No Longer Active 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 APRN Active LATUDA 80 MG TABS Take one by mouth daily LURASIDONE HCL 61354981295 No Longer Active 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 APRN Active AMLODIPINE BESYLATE 5 MG TABS 1 tablet by mouth daily AMLODIPINE BESYLATE 73196083942 No Longer Active 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 APRN Active AMITRIPTYLINE HCL 100 MG TAB one at hs AMITRIPTYLINE HCL 97217814748 No Longer Active Vishal Hui MD Active TRAZODONE HCL 100 MG TAB take 1 at bedtime TRAZODONE HCL 78462856814 No Longer Active Vishal Hui MD Active VYVANSE 40 MG CAPS 1 daily, LISDEXAMFETAMINE DIMESYLATE 01989041854 No Longer Active Vishal Hui MD Active IBUPROFEN 600 MG TAB 1 po TID PRN IBUPROFEN 64036376167 No Longer Active Vishal Hui MD Active PROZAC 20 MG CAP Take one by mouth daily FLUOXETINE HCL 08478080450 No Longer Active Vishal Hui MD Active ZOFRAN 4 MG TABS 1 po q6hr PRN Nausea ONDANSETRON HCL Active Vishal Hui MD Active BACTRIM DS 800-160 MG TABS 1 pill by mouth twice daily SULFAMETHOXAZOLE-TRIMETHOPRIM 69110908197 No Longer Active Sahara Rodriguez MD PhD Active DIFLUCAN 150 MG TAB 1 tablet by mouth daily FLUCONAZOLE 24345274344 No Longer Active Vishal Hui MD Active TIZANIDINE HCL 4 MG TABS 1 po q6hr PRN Muscle Spasm/Back Pain TIZANIDINE HCL 22960661445 Active Vishal Hui MD Active CLINDAMYCIN HCL 150 MG CAPS 1 four times a day CLINDAMYCIN HCL 79286747098 No Longer Active Neeraj Collins MD Active KEFLEX 500 MG ORAL CAPS 1 cap QID by mouth CEPHALEXIN 04346049580 No Longer Active Neeraj Collins MD Active DIFLUCAN 150 MG TABS 1 pill every other day x 2 doses FLUCONAZOLE 84721279330 No Longer Active Sahara Rodriguez MD PhD Active MELATONIN 3 MG CAPS 2 po q hs MELATONIN 66615032956 No Longer Active Sahara Rodriguez MD PhD Active MULTIVITAMINS CAPS Take one by mouth daily MULTIPLE VITAMIN 44126431320 No Longer Active Sahara Rodriguez MD PhD Active BACTRIM DS 800-160 MG TAB 1 tab by mouth twice daily TRIMETHOPRIM-SULFAMETHOXAZOLE 33903949351 No Longer Active Sahara Rodriguez MD PhD Active [facility] PROBIOTIC ORAL CHEW 2 daily po PROBIOTIC PRODUCT 33384960572 No Longer Active Sahara Rodriguez MD PhD Active BACTRIM DS 800-160 MG TABS 1 po BID x 7 days SULFAMETHOXAZOLE-TRIMETHOPRIM 75714994960 No Longer Active Vishal Hui MD Active CHANTIX STARTING MONTH EARNEST 0.5 MG X 11 & 1 MG X 42 TABS 0.5mg daily for 3 days , then 0.5mg BID for 4 days, then 1mg BID VARENICLINE TARTRATE 04798649855 No Longer Active TAMARA Gray Active VERAPAMIL HCL CR 120 MG TAB CR 1 po bid VERAPAMIL HCL 67234373450 No Longer Active Vishal Hui MD Active METOPROLOL SUCCINATE 50 MG TB24 1 tablet by mouth daily METOPROLOL SUCCINATE 72157907088 No Longer Active Vishal Hui MD Active SAPHRIS 10 MG SUBL 1 tab po bid ASENAPINE MALEATE 36809632858 No Longer Active Vishal Hui MD Active LISINOPRIL 20 MG TABS 1 tab po qd LISINOPRIL 69467286220 No Longer Active Vishal Hui MD Active LATUDA 20 MG TABS Take one by mouth daily LURASIDONE HCL 72279998487 No Longer Active Vishal Hui MD Active TRAZODONE HCL 50 MG TABS 1/2 tab po qd prn for anxiety TRAZODONE HCL 75871739319 No Longer Active Vishal Hui MD Active OMEPRAZOLE 20 MG TBEC 1 po q a.m. 30min prior to first food intake OMEPRAZOLE 83614259302 Active Vishal Hui MD Active RANITIDINE HCL 150 MG CAPS 1 twice a day RANITIDINE HCL 77208016551 Active Jillina Messizell BEARINGIZER Active LINZESS 290 MCG CAPS Take one by mouth daily LINACLOTIDE 38860005104 No Longer Active Vishal Hui MD Active SAPHRIS 5 MG SUBL 1 tab po qd ASENAPINE MALEATE 62067556881 No Longer Active Vishal Hui MD Active ZALEPLON 10 MG CAPS 1 cap po every other night ZALEPLON 96358030403 No Longer Active Vishal Hui MD Active LYRICA 50 MG CAPS 1 tab po TID PREGABALIN 11334002765 No Longer Active Vishal Hui MD Active LORATADINE 10 MG TABS 1 tab po qd LORATADINE 25373090088 No Longer Active Vishla Hui MD Active VERAPAMIL HCL ER 180 MG CR-TABS 1 tab po bid VERAPAMIL HCL 59071680521 No Longer Active Vishal Hui MD Active MIRALAX POWD 1 capfull once daily POLYETHYLENE GLYCOL 3350 81676585448 No Longer Active Vishal Hui MD Active PREDNISONE 20 MG TABS 1 tab po qd PREDNISONE 55856362263 No Longer Active Renzo Thornton DO Active LEVOFLOXACIN 500 MG TABS 1 tab po qd LEVOFLOXACIN 70349940560 No Longer Active Renzo Thornton DO Active BUSPIRONE HCL 15 MG TABS 1 tab po TID BUSPIRONE HCL 54597338638 No Longer Active Renzo Thornton DO Active BENZTROPINE MESYLATE 1 MG TABS 1 tab po qd BENZTROPINE MESYLATE 42731143021 No Longer Active Renzo Thornton DO Active ATENOLOL 25 MG TABS 1 tab po qd ATENOLOL 24540162193 No Longer Active Renzo Thornton DO Active ESCITALOPRAM OXALATE 20 MG TABS 1 tab po qd ESCITALOPRAM OXALATE 27665692169 No Longer Active Renzo Thornton DO Active ADVAIR DISKUS 250-50 MCG/DOSE AEPB 1 puff BID FLUTICASONE-SALMETEROL 40675179774 No Longer Active Renzo Thornton DO Active PREDNISONE 20 MG TAB 2 tabs daily for 3 days, 1 tab daily for 3 days, 1/2 tab daily for 2 days PREDNISONE 42539625632 No Longer Active Vishal Hui MD Active CEFDINIR 300 MG CAPS by mouth twice a day CEFDINIR 60005560150 No Longer Active Vishal Hui MD Active LANSOPRAZOLE 30 MG CPDR 1 cap po qd LANSOPRAZOLE 34127151420 No Longer Active Vishal Hui MD Active BACLOFEN 20 MG TABS 1 tab po tid BACLOFEN 84211839903 No Longer Active Vishal Hui MD Active ADVAIR DISKUS 250-50 MCG/DOSE AEPB 1 puff BID ADVAIR DISKUS 250-50 MCG/DOSE AEPB FLUTICASONE-SALMETEROL Inactive ESCITALOPRAM OXALATE 20 MG TABS 1 tab po qd ESCITALOPRAM OXALATE 20 MG TABS 458622 ESCITALOPRAM OXALATE Inactive ATENOLOL 25 MG TABS 1 tab po qd ATENOLOL 25 MG TABS 583425 ATENOLOL Inactive BENZTROPINE MESYLATE 1 MG TABS 1 tab po qd BENZTROPINE MESYLATE 1 MG TABS 752127 BENZTROPINE MESYLATE Inactive BUSPIRONE HCL 15 MG TABS 1 tab po TID BUSPIRONE HCL 15 MG TABS 888246 BUSPIRONE HCL Inactive LEVOFLOXACIN 500 MG TABS 1 tab po qd LEVOFLOXACIN 500 MG TABS 350583 LEVOFLOXACIN Inactive PREDNISONE 20 MG TABS 1 tab po qd PREDNISONE 20 MG TABS 043850 PREDNISONE Inactive MIRALAX POWD 1 capfull once daily MIRALAX POWD 432141 POLYETHYLENE GLYCOL 3350 Inactive VERAPAMIL HCL ER 180 MG CR-TABS 1 tab po bid VERAPAMIL HCL ER 180 MG CR-TABS VERAPAMIL HCL Inactive LORATADINE 10 MG TABS 1 tab po qd LORATADINE 10 MG TABS 583484 LORATADINE Inactive LYRICA 50 MG CAPS 1 tab po TID LYRICA 50 MG CAPS PREGABALIN Inactive ZALEPLON 10 MG CAPS 1 cap po every other night ZALEPLON 10 MG CAPS 354797 ZALEPLON Inactive SAPHRIS 5 MG SUBL 1 tab po qd SAPHRIS 5 MG SUBL ASENAPINE MALEATE Inactive TRAZODONE HCL 50 MG TABS 1/2 tab po qd prn for anxiety TRAZODONE HCL 50 MG TABS 416010 TRAZODONE HCL Inactive LATUDA 20 MG TABS Take one by mouth daily LATUDA 20 MG TABS LURASIDONE HCL Inactive LISINOPRIL 20 MG TABS 1 tab po qd LISINOPRIL 20 MG TABS 546362 LISINOPRIL Inactive SAPHRIS 10 MG SUBL 1 [...] twice daily BACTRIM DS 800-160 MG TAB 272374 TRIMETHOPRIM-SULFAMETHOXAZOLE Inactive MULTIVITAMINS CAPS Take one by mouth daily MULTIVITAMINS CAPS MULTIPLE VITAMIN Inactive MELATONIN 3 MG CAPS 2 po q hs MELATONIN 3 MG CAPS 987909 MELATONIN Inactive KEFLEX 500 MG ORAL CAPS 1 cap QID by mouth KEFLEX 500 MG ORAL CAPS 362135 CEPHALEXIN Inactive CLINDAMYCIN HCL 150 MG CAPS 1 four times a day CLINDAMYCIN HCL 150 MG CAPS 481790 CLINDAMYCIN HCL Inactive DIFLUCAN 150 MG TAB 1 tablet by mouth daily DIFLUCAN 150 MG TAB 752789 FLUCONAZOLE Inactive PROZAC 20 MG CAP Take one by mouth daily PROZAC 20 MG CAP 489979 FLUOXETINE HCL Inactive IBUPROFEN 600 MG TAB 1 po TID PRN IBUPROFEN 600 MG TAB 305517 IBUPROFEN Inactive VYVANSE 40 MG CAPS 1 daily, VYVANSE 40 MG CAPS LISDEXAMFETAMINE DIMESYLATE Inactive TRAZODONE HCL 100 MG TAB take 1 at bedtime TRAZODONE HCL 100 MG TAB 440303 TRAZODONE HCL Inactive AMITRIPTYLINE HCL 100 MG TAB one at hs AMITRIPTYLINE HCL 100 MG TAB 928045 AMITRIPTYLINE HCL Inactive AMLODIPINE BESYLATE 5 MG TABS 1 tablet by mouth daily AMLODIPINE BESYLATE 5 MG TABS 371161 AMLODIPINE BESYLATE Inactive LATUDA 80 MG TABS Take one by mouth daily LATUDA 80 MG TABS LURASIDONE HCL Inactive SAPHRIS 5 MG SUBL 1 po bid SAPHRIS 5 MG SUBL ASENAPINE MALEATE Inactive PREDNISONE 20 MG TAB 2 tabs daily for 4 days, 1 tab daily for 4 days, 1/2 tab daily for 4 days PREDNISONE 20 MG TAB 466689 PREDNISONE Inactive AMBIEN 5 MG ORAL TABS 1 tab at bedtime AMBIEN 5 MG ORAL TABS 574006 ZOLPIDEM TARTRATE Inactive PROZAC 20 MG ORAL CAPS 1 tab daily PROZAC 20 MG ORAL CAPS 219827 FLUOXETINE HCL Inactive ABILIFY 15 MG ORAL TABS 1 tab daily ABILIFY 15 MG ORAL TABS 699758 ARIPIPRAZOLE Inactive METOPROLOL TARTRATE 50 MG TAB 1 po bid METOPROLOL TARTRATE 50 MG TAB 779400 METOPROLOL TARTRATE Inactive TRAMADOL HCL 50 MG TABS 1-2 po TID PRN Pain TRAMADOL HCL 50 MG TABS 181951 TRAMADOL HCL Inactive PIROXICAM 20 MG CAPS 1 cap po qd PRN Pain PIROXICAM 20 MG CAPS 053610 PIROXICAM Inactive MINIPRESS 2 MG CAPS 4 cap po at night MINIPRESS 2 MG CAPS 970919 PRAZOSIN HCL Inactive MIRALAX PACK 1 po qd PRN Constipation MIRALAX PACK 129957 POLYETHYLENE GLYCOL 3350 Inactive METOPROLOL TARTRATE 25 MG ORAL TABS 1/2 tablet twice daily for heart rate and blood pressure METOPROLOL TARTRATE 25 MG ORAL TABS 585786 METOPROLOL TARTRATE Inactive VALIUM 5 MG TAB Take 1-2 tablets daily VALIUM 5 MG TAB 671737 DIAZEPAM Inactive FLAGYL 500 MG TAB 1 tablet by mouth bid FLAGYL 500 MG TAB 102358 METRONIDAZOLE Inactive DICLOFENAC POTASSIUM TABS Take 1 tablet twice a day (pt. is not sure of the dose.) DICLOFENAC POTASSIUM TABS DICLOFENAC POTASSIUM TABS Inactive ZITHROMAX Z-EARNEST 250 MG TABS 2 today and then 1 daily for 4 days ZITHROMAX Z-EARNEST 250 MG TABS 8935745 AZITHROMYCIN Inactive PREDNISONE 20 MG TABS 2 daily for 5 days then 1 daily for 5 days PREDNISONE 20 MG TABS 294460 PREDNISONE Inactive PROAIR HFA 108 (90 BASE) MCG/ACT AERS 2 puffs four times a day as needed 2015 PROAIR HFA 108 (90 BASE) MCG/ACT AERS ALBUTEROL SULFATE Inactive HYDROCODONE-ACETAMINOPHEN 5-325 MG TABS 1 to 2 four times a day as needed for pain use until can be seen by specialist HYDROCODONE- ACETAMINOPHEN 5-325 MG TABS 522945 HYDROCODONE-ACETAMINOPHEN Inactive TESSALON PERLES 100 MG CAP 1 to 2 tablets by mouth 3 times daily as needed for cough TESSALON PERLES 100 MG CAP 218988 BENZONATATE Inactive CHANTIX STARTING MONTH EARNEST 0.5 MG X 11 & 1 MG X 42 TABS take as directed 2015 CHANTIX STARTING MONTH EARNEST 0.5 MG X 11 & 1 MG X 42 TABS VARENICLINE TARTRATE Inactive CHANTIX 1 MG TABS 1 twice a day to help quit smoking CHANTIX 1 MG TABS VARENICLINE TARTRATE Inactive CEFDINIR 300 MG CAPS by mouth twice a day CEFDINIR 300 MG CAPS 767819 CEFDINIR Inactive PREDNISONE 20 MG TAB 2 tabs daily for 3 days, 1 tab daily for 3 days, 1/2 tab daily for 2 days PREDNISONE 20 MG TAB 081248 PREDNISONE Inactive BACTRIM DS 800-160 MG TABS [...] x 10 days KEFLEX 500 MG CAP 088265 CEPHALEXIN Inactive Advance Directives Directive Description Start [...] E&M - 3141-9 287.5 [lb_av] Weight Measured Diagnostic Results Date Name [...] % 11.6-14.8 platelet count 394 10^3/MM^3 10*3/mm3 304-122 0937/01/11 leukocyte count, blood 13.8 10^3/MM^3 10*3/mm3 4.6-10.2 [...] Panel - Chemistry sodium, serum 139 mmol/L 072-048 6376/12/03 carbon dioxide, venous blood 28.5 mmol/L 21.0-32.0 [...] 5.5 % 4.3-6.0 cholesterol, serum 159 mg/dL 342-880 9010/12/03 triglyceride, serum, fasting 118 mg/dL 30-200 HDL [...] 362 10^3/MM^3 10*3/mm3 142-424 Lab Report: Chlamydia/GC APTIMA/57351 - Lab chlamydia DNA probe NOT DETECTED NOT DETECTED Lab Report: Chlamydia/GC [facility]TIMA/62762 - Microbiology Neisseria gonorrhoeae DNA probe NOT DETECTED NOT DETECTED Lab Report: Comp. Metabolic Panel - Chemistry sodium, serum 140 mmol/L 653-174 6448/08/08 carbon dioxide, venous blood 33.7 mmol/L 21.0-32.0 potassium, serum 5.0 mmol/L 3.5-5.2 chloride, serum 103 mmol/L 98-107 blood glucose 80 mg/dL 65-110 urea nitrogen, blood 13 mg/dL 7-18 creatinine, serum 0.88 mg/dL 0.55-1.30 alanine aminotransferase (SGPT), serum 54 U/L -78 aspartate aminotransferase (SGOT), serum 29 U/L 15-37 calcium, serum 9.7 mg/dL 8.5-10.1 bilirubin, serum, total 0.30 mg/dL 0.00-1.00 sodium, serum 139 mmol/L 478-129 7033/12/22 carbon dioxide, venous blood 26.8 mmol/L 21.0-32.0 potassium, serum 4.2 mmol/L 3.5-5.2 chloride, serum 103 mmol/L 98-107 blood glucose 115 mg/dL 65-110 urea nitrogen, blood 20 mg/dL 7-18 creatinine, serum 0.90 mg/dL 0.55-1.30 alanine aminotransferase (SGPT), serum 38 U/L aspartate aminotransferase (SGOT), serum 19 U/L 15-37 calcium, serum 8.6 mg/dL 8.5-10.1 bilirubin, serum, total 0.30 mg/dL 0.00-1.00 sodium, serum 139 mmol/L 183-142 2618/01/11 carbon dioxide, venous blood 26.6 mmol/L 21.0-32.0 potassium, serum 4.1 mmol/L 3.5-5.2 chloride, serum 100 mmol/L 98-107 blood glucose 86 mg/dL 65-110 urea nitrogen, blood 16 mg/dL 7-18 creatinine, serum 1.00 mg/dL 0.55-1.30 alanine aminotransferase (SGPT), serum 48 U/L aspartate aminotransferase (SGOT), serum 17 U/L 15-37 calcium, serum 9.1 mg/dL 8.5-10.1 bilirubin, serum, total 0.40 mg/dL 0.00-1.00 sodium, serum 142 mmol/L 205-348 4200/06/08 carbon dioxide, venous blood 27.6 mmol/L 21.0-32.0 [...] Rate - Chemistry sodium, serum 139 mmol/L 511-139 6307/12/11 carbon dioxide, venous blood 25.4 mmol/L 21.0-32.0 [...] 0.00-1.00 Lab Report: LH/Adult/615, FSH/Adult/470 - Chemistry follicle [...] Hormone (L), Free Thyroxine (L) - Chemistry thyroxine, serum, free 1.02 ng/dL 0.76-1.46 TSH [...] mg/dL Encounters Code Encounter Date Provider Facility CPT-30196 Level 3 Est. Patient 13:59:59 CDT 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 [facility] CPT-77947 Level 3 Est. Patient 18:18:53 CDT Neeraj Colilns MD [facility] CPT-15195 Level 3 Est. Patient 15:50:44 CDT Vishal Hui MD [facility] CPT-37457 Level 3 Est. Patient 11:36:17 CDT Ahmet Carbajal MD [facility] CPT-89358 Level 3 Est. Patient 13:29:16 CDT Vishal Hui MD [facility] CPT-34671 Level 3 Est. Patient 14:27:52 CDT Neeraj Collins MD [facility] CPT-46088 Level 3 Est. Patient 08:56:03 CDT 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 [facility] CPT-45517 Level 4 Est. Patient 12:11:48 CDT Fabiola Johnson [facility] CPT-33936 Level 3 New Patient 16:53:37 CDT Albert Caldera MD [facility] CPT-21140 Level 3 Est. Patient 11:25:49 CDT Renzo Thornton DO [facility] CPT-16822 Level 3 Est. Patient 15:22:01 CDT Ahmet Carbajal MD [facility] CPT-00241 Level 4 Est. Patient 09:00:51 SUPPLY REQUIREMENTS OFFICER Vishal Hui MD [facility] CPT-46511 Level 3 Est. Patient 11:37:33 SUPPLY REQUIREMENTS OFFICER Vishal Hui MD [facility] CPT-85286 Level 3 Est. Patient 08:41:09 SUPPLY REQUIREMENTS OFFICER Vishal Hui MD [facility] CPT-18422 Level 4 Est. Patient 10:19:35 SUPPLY REQUIREMENTS OFFICER Vishal Hui MD [facility] CPT-23800 Level 3 Est. Patient 13:35:45 CDT Vishal Hui MD [facility]-32570 Level 4 Est. Patient 10:08:37 CDT Vishal Hui MD [facility]-33332 Level 3 Est. Patient 11:22:10 CDT Vishal Hui MD [facility]-04181 Level 3 Est. Patient 11:03:32 CDT Sahara Rodriguez MD [facility]-87264 Level 3 Est. Patient 09:41:35 CDT Vishal Hui MD [facility]-91674 Level 3 Est. Patient 12:00:41 CDT Neeraj Collins MD [facility]-54695 Level 3 Est. Patient 09:16:24 CDT Vishal Hui MD [facility]-44613 Level 4 Est. Patient 13:59:09 CDT Neeraj Collins MD [facility]-09380 Level 3 Est. Patient 15:19:43 CDT Renzo Thornton DO [facility]-76821 Level 3 Est. Patient 18:10:26 CDT Sahara Rodriguez MD [facility]-83688 Level 3 Est. Patient 14:49:50 CDT Vishal Hui MD [facility]-97228 Level 4 Est. Patient 18:41:46 CDT Neeraj Collins MD [facility]-33094 Level 4 Est. Patient 09:18:38 SUPPLY REQUIREMENTS OFFICER Vishal Hui MD [facility]-16419 Level 3 Est. Patient 14:43:55 SUPPLY REQUIREMENTS OFFICER Vishal Hui MD [facility]-89506 Level 3 Est. Patient 15:26:33 SUPPLY REQUIREMENTS OFFICER Sahara Rodriguez MD PhD [id number] Level 3 Est. Patient 10:32:14 SUPPLY REQUIREMENTS OFFICER Vishal Hui MD [facility] CPT-54567 Level 3 Est. Patient 15:12:52 SUPPLY REQUIREMENTS OFFICER Vishal Hui MD [facility] CPT-73131 Level 4 Est. Patient 09:19:27 CDT Vishal Hui MD [facility] CPT-10948 Level 3 Est. Patient 15:53:00 CDT Renzo Thornton [facility] CPT-97702 Level 3 Est. Patient 15:50:30 CDT Renzo Thornton [facility] CPT-88747 Level 3 Est. Patient 16:55:24 CDT Vishal Hui MD [facility] Procedures Code Procedure Name Date Entry Date Standard Description CPT-27929 Nexplanon Removal with Reinsertion 14:09:32 CDT CPT-J7307 Nexplanon (Implant) 14:09:32 CDT CPT-OV Office Visit 14:09:32 CDT CPT-62501 UA w micro - LAB USE ONLY 16:21:13 CDT CPT-03353 Wet Mount - LAB USE ONLY 16:21:13 CDT CPT-51749 First Vx - Ix admin for Medicare patients 14:37:47 CDT CPT-65350 Fluzone Preservative Free Intramuscular Suspension 14:37 :47 CDT CPT-26315 Abx/Therapy Injection 13:54:22 CDT CPT-38684 Abx/Therapy Injection 08:47:09 CDT CPT-17951 Abx/Therapy Injection 13:29:56 CDT CPT-46302 Abx/Therapy Injection 08:36:16 CDT CPT-14290 [place] - LAB USE ONLY 17:44:58 CDT CPT-88186 UA w micro - LAB USE ONLY 17:44:58 CDT CPT-16965 CMP - LAB USE ONLY 17:44:58 CDT CPT-46139 Venipuncture Draw Fee 17:44:58 CDT CPT-44846 Cervical Min 4V - XRAY USE ONLY 09:01:40 CDT CPT-73767 Chest 2V Frontal and Lat - XRAY USE ONLY 11:06:31 CDT CPT-20294 EKG Trac and Interp - XRAY USE ONLY 11:31:43 CDT 08/26 CPT-J3420 Vitamin B12 1000mcg (Cyanocobalamin) 08:10:26 SUPPLY REQUIREMENTS OFFICER 04/12 CPT-43573 Abx/Therapy Injection 08:10:26 SUPPLY REQUIREMENTS OFFICER CPT-G0438 Initial Annual Wellness Exam 19:01:01 SUPPLY REQUIREMENTS OFFICER CPT-J3420 Vitamin B12 1000mcg (Cyanocobalamin) 16:57:46 CDT 08/14 CPT-11091 Recombivax HB Injection Suspension 5 MCG/0.5ML 08:37:50 SUPPLY REQUIREMENTS OFFICER CPT-72757 Immunization Single Admin 08:37:50 SUPPLY REQUIREMENTS OFFICER CPT-J3420 Vitamin B12 1000mcg (Cyanocobalamin) 08:32:16 SUPPLY REQUIREMENTS OFFICER 03/11 CPT-99800 Abx/Therapy Injection 08:32:16 SUPPLY REQUIREMENTS OFFICER CPT-67029 Chest 2V Frontal and Lat 11:46:38 SUPPLY REQUIREMENTS OFFICER CPT-69646 Venipuncture Draw Fee 09:12:45 SUPPLY REQUIREMENTS OFFICER CPT-J3420 Vitamin B12 1000mcg (Cyanocobalamin) 08:50:15 SUPPLY REQUIREMENTS OFFICER 02/08 CPT-54899 Abx/Therapy Injection 08:50:15 SUPPLY REQUIREMENTS OFFICER CPT-Cryo Cryotherapy 10:19:35 SUPPLY REQUIREMENTS OFFICER CPT-000 Give Appropriate Flu Vaccine 09:22:16 CDT CPT-J3420 Vitamin B12 1000mcg (Cyanocobalamin) 19:08:57 CDT 01/11 CPT-41663 Abx/Therapy Injection 19:08:57 CDT CPT-J3420 Vitamin B12 1000mcg (Cyanocobalamin) 08:19:08 CDT 12/11 CPT-61312 Abx/Therapy Injection 08:19:08 CDT CPT-J3420 Vitamin B12 1000mcg (Cyanocobalamin) 14:48:00 CDT 11/09 CPT-63103 Abx/Therapy Injection 14:47:59 CDT CPT-J3420 Vitamin B12 1000mcg (Cyanocobalamin) 08:34:04 CDT 10/09 CPT-20823 Abx/Therapy Injection 08:34:04 CDT CPT-J3420 Vitamin B12 1000mcg (Cyanocobalamin) 09:18:52 CDT 09/11 CPT-35612 Abx/Therapy Injection 09:18:52 CDT CPT-J3420 Vitamin B12 1000mcg (Cyanocobalamin) 08:35:44 CDT 09/04 CPT-25867 Abx/Therapy Injection 08:35:44 CDT CPT-61920 Immunization Single Admin 11:07:16 CDT CPT-67240 Hepatitis B adult IM 11:07:16 CDT CPT-J3420 Vitamin B12 1000mcg (Cyanocobalamin) 11:00:49 CDT 08/28 CPT-J1040 Depo Medrol 80 mg (Methyl Prednisolone Acetate) 11:00: 49 CDT CPT-03391 Abx/Therapy Injection 11:00:49 CDT CPT-J1040 Depo Medrol 80 mg (Methyl Prednisolone Acetate) 09:16: 23 CDT CPT-J3420 Vitamin B12 1000mcg (Cyanocobalamin) 08:27:05 CDT 08/20 CPT-94713 Abx/Therapy Injection 08:27:05 CDT CPT-36761 Recombivax HB Injection Suspension 5 MCG/0.5ML 10:00:41 CDT CPT-20993 Administration single or combination vaccine inc oral 10 :00:41 CDT CPT-63613 Sono transvag pelvis non OB uterus ovaries cervix 16:36: 57 CDT CPT-32239 LS spine comp w obliq 09:50:55 SUPPLY REQUIREMENTS OFFICER CPT-21094 Abd compl w upright 09:50:55 SUPPLY REQUIREMENTS OFFICER CPT-J1100 Decadron 4mg (Dexamethasone) 15:51:24 SUPPLY REQUIREMENTS OFFICER CPT-J1030 Depo Medrol 40 mg (Methyl Prednisolone Acetate) 15:51: 24 SUPPLY REQUIREMENTS OFFICER CPT-50820 Abx/Therapy Injection 15:51:24 SUPPLY REQUIREMENTS OFFICER CPT-J1100 Decadron 4mg (Dexamethasone) 15:26:33 SUPPLY REQUIREMENTS OFFICER CPT-J1030 Depo Medrol 40 mg (Methyl Prednisolone Acetate) 15:26: 33 SUPPLY REQUIREMENTS OFFICER CPT-55118 Sono retroperitoneal complete kidneys and bladder 17:15: 30 CDT CPT-48522 Abd compl w upright 16:09:25 CDT CPT-J1100 Decadron 8mg (Dexamethasone) 17:07:57 CDT CPT-91929 Abx/Therapy Injection 17:07:57 CDT CPT-J1100 Decadron 8mg (Dexamethasone) 16:55:24 CDT CPT-70627 Chest 2V Frontal and Lat 16:32:44 CDT
--- OUTSIDE RECORDS SUMMARY | 2016-11-04 11:11 | XMS REPORT | Clinical Summary ---
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 FLUTICASONE PROPIONATE HFA 93160209795 Active Renzo Thornton DO Active TROPICAMIDE 0.5 % OPHTH SOLN 1 drop PRN eye spasms TROPICAMIDE 03781077258 Active Samantha Stephan RMA Active RISPERDAL 4 MG ORAL TABS 1 tab at bedtime RISPERIDONE 85732754614 Active Samantha Stephan RMA Active LEVAQUIN 500 MG TABS 1 daily for infection LEVOFLOXACIN 83531201573 Active Suzan Boo APRN Active TESSALON PERLES 100 MG CAPS 1 three times a day as needed for cough BENZONATATE 48167681645 Active Suzan Boo APRN Active ZOFRAN 4 MG TABS 1 po q6hr PRN Nausea ONDANSETRON HCL No Longer Active Suzan Boo APRN Active FLUTICASONE PROPIONATE 50 MCG/ACT SUSP 2 sprays each nostril daily before bed. FLUTICASONE PROPIONATE 75827310155 No Longer Active Suzan Boo APRN Active ASPIRIN 325 MG ORAL TABS 1 tab q.d ASPIRIN 68311310651 No Longer Active Suzan Boo APRN Active HALOPERIDOL 10 MG ORAL TABS 1 tab q.d HALOPERIDOL 24057483008 No Longer Active Suzan Boo APRN Active GUAIFENESIN-CODEINE 100-10 MG/5ML SYRP 5ml every 4 to 6 hours as needed for cough GUAIFENESIN-CODEINE 83090745273 No Longer Active Suzan Boo APRN Active ZITHROMAX Z-EARNEST 250 MG TABS 2 today and then 1 daily for 4 days AZITHROMYCIN 60849159920 No Longer Active Suzan Boo APRN Active PREDNISONE 10 MG TABS 2 daily for 5 days then 1 daily for 5 days PREDNISONE 90491314422 Active Suzan Boo APRN Active CLONAZEPAM 1 MG ORAL TABS 1 twice a day and an additional 1 tablet every other day as needed for pseudoseizures or anxiety CLONAZEPAM 21824986114 Active Ahmet Carbajal MD Active HYDROCODONE-ACETAMINOPHEN 5-325 MG ORAL TABS 1 tab two times a day HYDROCODONE-ACETAMINOPHEN 42192522744 No Longer Active Ahmet Carbajal MD Active LAMICTAL 100 MG ORAL TABS 1 tab 2 times qd. LAMOTRIGINE 46066472205 Active Ahmet Carbajal MD Active PREDNISONE 20 MG TABS 2 daily for 5 days then 1 daily for 5 days PREDNISONE 59229039085 No Longer Active Ahmet Carbajal MD Active FLUTICASONE PROPIONATE 50 MCG/ACT SUSP 1 to 2 sprays each nostril daily for allergies FLUTICASONE PROPIONATE 75680197475 Active Tila Nicolas Active BENADRYL 25 MG CAP 4 po at bedtime for insomnia DIPHENHYDRAMINE HCL 34506347052 No Longer Active Ahmet Carbajal MD Active ADVAIR DISKUS 250-50 MCG/DOSE INH AEPB 1 puff twice a day for asthma FLUTICASONE-SALMETEROL 09688309177 No Longer Active Ahmet Carbajal MD Active KLONOPIN 1 MG ORAL TABS 1 tab po TID CLONAZEPAM 67544538002 No Longer Active Ahmet Carbajal MD Active ABILIFY MAINTENA 400 MG IM SUSR 400mg injection every 26 days ARIPIPRAZOLE 45438147918 No Longer Active Ahmet Carbajal MD Active TRAMADOL HCL 50 MG TABS 1/2-1 tab TID PRN TRAMADOL HCL 81894616239 No Longer Active Ahmet Carbajal MD Active BACTRIM DS 800-160 MG TABS 1 twice a day SULFAMETHOXAZOLE- TRIMETHOPRIM 51574207416 No Longer Active Ahmet Carbajal MD Active PROAIR HFA 108 (90 BASE) MCG/ACT AERS 2 puffs four times a day as needed 2015 ALBUTEROL SULFATE 37823571583 Active Ahmet Carbajal MD Active EQ NICOTINE 21 MG/24HR TRANS PT24 Apply daily to stop smoking NICOTINE 01276112905 Active Ahmet Carbajal MD Active MONISTAT 7 COMBO PACK WOODROW 100 & 2 MG-% (9GM) VAG KIT 1 applicatorful per vagina q pm x 7 MICONAZOLE NITRATE 87696932811 No Longer Active Ahmet Carbajal MD Active FLAGYL 500 MG TAB 1 tablet by mouth bid METRONIDAZOLE 99923707492 No Longer Active Ahmet Carbajal MD Active OXYCODONE HCL ER 10 MG ORAL T12A 1/2 tab by mouth every 4 hours prn OXYCODONE HCL 05308479274 No Longer Active Ahmet Carbajal MD Active METHYLPREDNISOLONE 4 MG ORAL TABS po daily METHYLPREDNISOLONE 65174501475 No Longer Active Ahmet Carbajal MD Active LEVOFLOXACIN 500 MG ORAL TABS po daily LEVOFLOXACIN 50748844169 No Longer Active Ahmet Carbajal MD Active VIIBRYD 10 MG ORAL TABS Take 1 tablet once a day VILAZODONE HCL 84736979827 No Longer Active Ahmet Carbajal MD Active TOPAMAX 50 MG ORAL TABS 1 tab twice daily TOPIRAMATE 19131185241 No Longer Active Ahmet Carbajal MD Active DICLOFENAC SODIUM 50 MG TBEC 1 tablet by mouth four times daily PRN Pain 2015 DICLOFENAC SODIUM 23955914502 No Longer Active Ahmet Carbajal MD Active ADZENYS XR-ODT 6.3 MG ORAL TBED 1 tab po daily for ADHD AMPHETAMINE 90251836192 No Longer Active Ahmet Carbajal MD Active CHANTIX 1 MG TABS 1 twice a day to help quit smoking VARENICLINE TARTRATE 27078000420 No Longer Active Dipika Burgos MD Active CHANTIX STARTING MONTH EARNEST 0.5 MG X 11 & 1 MG X 42 TABS take as directed 2015 VARENICLINE TARTRATE 47939738383 No Longer Active Dipika Burgos MD Active TESSALON PERLES 100 MG CAP 1 to 2 tablets by mouth 3 times daily as needed for cough BENZONATATE 65619786241 No Longer Active 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 APRN Active IMITREX 50 MG ORAL TABS 0.5 po x 1 PRN Headache. May repeat dose x 1 in 2 hours if needed SUMATRIPTAN SUCCINATE 50518384290 Active Ahmet Carbajal MD Active HYDROCODONE-ACETAMINOPHEN 5-325 MG TABS 1 to 2 four times a day as needed for pain use until can be seen by specialist HYDROCODONE- ACETAMINOPHEN 63467620625 No Longer Active Vishal Hui MD Active PROAIR HFA 108 (90 BASE) MCG/ACT AERS 2 puffs four times a day as needed 2015 ALBUTEROL SULFATE 49838141668 No Longer Active Vishal Hui MD Active PREDNISONE 20 MG TABS 2 daily for 5 days then 1 daily for 5 days PREDNISONE 06822406424 No Longer Active Vishal Hui MD Active ZITHROMAX Z-EARNEST 250 MG TABS 2 today and then 1 daily for 4 days AZITHROMYCIN 74937702326 No Longer Active Vishal Hui MD Active DICLOFENAC POTASSIUM TABS Take 1 tablet twice a day (pt. is not sure of the dose.) DICLOFENAC POTASSIUM TABS 46370191287 No Longer Active Vishal Hui MD Active VERAPAMIL HCL ER 120 MG ORAL CR-TABS Take 1 tablet by mouth twice a day. VERAPAMIL HCL 61215348469 Active Vishal Hui MD Active FLAGYL 500 MG TAB 1 tablet by mouth bid METRONIDAZOLE 56412460350 No Longer Active Vishal Hui MD Active VALIUM 5 MG TAB Take 1-2 tablets daily DIAZEPAM 24244895411 No Longer Active Fabiola Johnson APRN Active METOPROLOL TARTRATE 25 MG ORAL TABS 1/2 tablet twice daily for heart rate and blood pressure METOPROLOL TARTRATE 53336425545 No Longer Active Fabiola Johnson APRN Active MIRALAX ORAL POWD 17GMS DAILY IN WATER POLYETHYLENE GLYCOL 3350 03871995505 Active TAMARA Casey Active MIRALAX PACK 1 po qd PRN Constipation POLYETHYLENE GLYCOL 3350 76021685616 No Longer Active Ahmet Carbajal MD Active MINIPRESS 2 MG CAPS 4 cap po at night PRAZOSIN HCL 12523864962 No Longer Active Ahmet Carbajal MD Active PIROXICAM 20 MG CAPS 1 cap po qd PRN Pain PIROXICAM 67427089024 No Longer Active Ahmet Carbajal MD Active TRAMADOL HCL 50 MG TABS 1-2 po TID PRN Pain TRAMADOL HCL 83014363047 No Longer Active Ahmet Carbajal MD Active METOPROLOL TARTRATE 50 MG TAB 1 po bid METOPROLOL TARTRATE 99176806696 No Longer Active Ahmet Carbajal MD Active ABILIFY 15 MG ORAL TABS 1 tab daily ARIPIPRAZOLE 06562398007 No Longer Active Ahmet Carbajal MD Active PROZAC 20 MG ORAL CAPS 1 tab daily FLUOXETINE HCL 66536757007 No Longer Active Ahmet Carbajal MD Active AMBIEN 5 MG ORAL TABS 1 tab at bedtime ZOLPIDEM TARTRATE 49542973865 No Longer Active Ahmet Carbajal MD Active PREDNISONE 20 MG TAB 2 tabs daily for 4 days, 1 tab daily for 4 days, 1/2 tab daily for 4 days PREDNISONE 20777608782 No Longer Active Ahmet Carbajal MD Active KEFLEX 500 MG CAP 1 po TID x 10 days CEPHALEXIN 60499025196 No Longer Active Vishal Hui MD Active SAPHRIS 5 MG SUBL 1 po bid ASENAPINE MALEATE 87112908645 No Longer Active Jillina Frazelephraim MD PSYCHIATRY Active LATUDA 80 MG TABS Take one by mouth daily LURASIDONE HCL 98251618418 No Longer Active Jillina Frazell MD PSYCHIATRY Active AMLODIPINE BESYLATE 5 MG TABS 1 tablet by mouth daily AMLODIPINE BESYLATE 76018006008 No Longer Active Jillina Frazell MD PSYCHIATRY Active AMITRIPTYLINE HCL 100 MG TAB one at hs AMITRIPTYLINE HCL 10043047887 No Longer Active Vishal Hui MD Active TRAZODONE HCL 100 MG TAB take 1 at bedtime TRAZODONE HCL 52492757521 No Longer Active Vishal Hui MD Active VYVANSE 40 MG CAPS 1 daily, LISDEXAMFETAMINE DIMESYLATE 33362064717 No Longer Active Vishal Hui MD Active IBUPROFEN 600 MG TAB 1 po TID PRN IBUPROFEN 56246578083 No Longer Active Vishal Hui MD Active PROZAC 20 MG CAP Take one by mouth daily FLUOXETINE HCL 32459464285 No Longer Active Vishal Hui MD Active BACTRIM DS 800-160 MG TABS 1 pill by mouth twice daily SULFAMETHOXAZOLE-TRIMETHOPRIM 43966917421 No Longer Active Sahara Rodriguez MD PhD Active DIFLUCAN 150 MG TAB 1 tablet by mouth daily FLUCONAZOLE 58138944797 No Longer Active Vishal Hui MD Active TIZANIDINE HCL 4 MG TABS 1 po q6hr PRN Muscle Spasm/Back Pain TIZANIDINE HCL 38407581958 Active Vishal Hui MD Active CLINDAMYCIN HCL 150 MG CAPS 1 four times a day CLINDAMYCIN HCL 32896588674 No Longer Active Neeraj Collins MD Active KEFLEX 500 MG ORAL CAPS 1 cap QID by mouth CEPHALEXIN 78876199987 No Longer Active Neeraj Collins MD Active DIFLUCAN 150 MG TABS 1 pill every other day x 2 doses FLUCONAZOLE 99231297748 No Longer Active Sahara Rodriguez MD PhD Active MELATONIN 3 MG CAPS 2 po q hs MELATONIN 14296657701 No Longer Active Sahara Rodriguez MD PhD Active MULTIVITAMINS CAPS Take one by mouth daily MULTIPLE VITAMIN 63784799592 No Longer Active Sahara Rodriguez MD PhD Active BACTRIM DS 800-160 MG TAB 1 tab by mouth twice daily TRIMETHOPRIM-SULFAMETHOXAZOLE 58984611772 No Longer Active Sahara Rodriguez MD PhD Active [facility] PROBIOTIC ORAL CHEW 2 daily po PROBIOTIC PRODUCT 24688208636 No Longer Active Sahara Rodriguez MD PhD Active BACTRIM DS 800-160 MG TABS 1 po BID x 7 days SULFAMETHOXAZOLE-TRIMETHOPRIM 92566932501 No Longer Active Vishal Hui MD Active CHANTIX STARTING MONTH EARNEST 0.5 MG X 11 & 1 MG X 42 TABS 0.5mg daily for 3 days , then 0.5mg BID for 4 days, then 1mg BID VARENICLINE TARTRATE 83804314021 No Longer Active Lisette Scarrow, RMA Active VERAPAMIL HCL CR 120 MG TAB CR 1 po bid VERAPAMIL HCL 48638405826 No Longer Active iVshal Hui MD Active METOPROLOL SUCCINATE 50 MG TB24 1 tablet by mouth daily METOPROLOL SUCCINATE 84482384974 No Longer Active Vishal Hui MD Active SAPHRIS 10 MG SUBL 1 tab po bid ASENAPINE MALEATE 58399720694 No Longer Active Vishal Hui MD Active LISINOPRIL 20 MG TABS 1 tab po qd LISINOPRIL 87797728123 No Longer Active Vishal Hui MD Active LATUDA 20 MG TABS Take one by mouth daily LURASIDONE HCL 50633821584 No Longer Active Vishal Hui MD Active TRAZODONE HCL 50 MG TABS 1/2 tab po qd prn for anxiety TRAZODONE HCL 64563417323 No Longer Active Vishal Hui MD Active OMEPRAZOLE 20 MG TBEC 1 po q a.m. 30min prior to first food intake OMEPRAZOLE 36637250199 Active TAMARA Casey Active RANITIDINE HCL 150 MG CAPS 1 twice a day RANITIDINE HCL 94573997077 Active 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 APRN Active LINZESS 290 MCG CAPS Take one by mouth daily LINACLOTIDE 52483439459 No Longer Active Vishal Hui MD Active SAPHRIS 5 MG SUBL 1 tab po qd ASENAPINE MALEATE 96319636681 No Longer Active Vishal Hui MD Active ZALEPLON 10 MG CAPS 1 cap po every other night ZALEPLON 06517744127 No Longer Active Vishal Hui MD Active LYRICA 50 MG CAPS 1 tab po TID PREGABALIN 00285777723 No Longer Active Vishal Hui MD Active LORATADINE 10 MG TABS 1 tab po qd LORATADINE 17976171463 No Longer Active Vishal Hui MD Active VERAPAMIL HCL ER 180 MG CR-TABS 1 tab po bid VERAPAMIL HCL 72053007646 No Longer Active Vishal Hui MD Active MIRALAX POWD 1 capfull once daily POLYETHYLENE GLYCOL 3350 13122276776 No Longer Active Vishal Hui MD Active PREDNISONE 20 MG TABS 1 tab po qd PREDNISONE 93936955844 No Longer Active Renzo Thornton DO Active LEVOFLOXACIN 500 MG TABS 1 tab po qd LEVOFLOXACIN 93401999286 No Longer Active Renzo Thornton DO Active BUSPIRONE HCL 15 MG TABS 1 tab po TID BUSPIRONE HCL 75747311433 No Longer Active Renoz Thornton DO Active BENZTROPINE MESYLATE 1 MG TABS 1 tab po qd BENZTROPINE MESYLATE 86095508447 No Longer Active Renzo Thornton DO Active ATENOLOL 25 MG TABS 1 tab po qd ATENOLOL 90914083463 No Longer Active Renzo Thornton DO Active ESCITALOPRAM OXALATE 20 MG TABS 1 tab po qd ESCITALOPRAM OXALATE 78737866785 No Longer Active Renzo Thornton DO Active ADVAIR DISKUS 250-50 MCG/DOSE AEPB 1 puff BID FLUTICASONE-SALMETEROL 06244432431 No Longer Active Renzo Thornton DO Active PREDNISONE 20 MG TAB 2 tabs daily for 3 days, 1 tab daily for 3 days, 1/2 tab daily for 2 days PREDNISONE 36450910222 No Longer Active Vishal Hui MD Active CEFDINIR 300 MG CAPS by mouth twice a day CEFDINIR 31677174315 No Longer Active Vishal Hui MD Active LANSOPRAZOLE 30 MG CPDR 1 cap po qd LANSOPRAZOLE 41008217479 No Longer Active Vishal Hui MD Active BACLOFEN 20 MG TABS 1 tab po tid BACLOFEN 56025310326 No Longer Active Vishal Hui MD Active ADVAIR DISKUS 250-50 MCG/DOSE AEPB 1 puff BID ADVAIR DISKUS 250-50 MCG/DOSE AEPB FLUTICASONE-SALMETEROL Inactive ESCITALOPRAM OXALATE 20 MG TABS 1 tab po qd ESCITALOPRAM OXALATE 20 MG TABS 871251 ESCITALOPRAM OXALATE Inactive ATENOLOL 25 MG TABS 1 tab po qd ATENOLOL 25 MG TABS 998319 ATENOLOL Inactive BENZTROPINE MESYLATE 1 MG TABS 1 tab po qd BENZTROPINE MESYLATE 1 MG TABS 867336 BENZTROPINE MESYLATE Inactive BUSPIRONE HCL 15 MG TABS 1 tab po TID BUSPIRONE HCL 15 MG TABS 590195 BUSPIRONE HCL Inactive LEVOFLOXACIN 500 MG TABS 1 tab po qd LEVOFLOXACIN 500 MG TABS 992390 LEVOFLOXACIN Inactive PREDNISONE 20 MG TABS 1 tab po qd PREDNISONE 20 MG TABS 422486 PREDNISONE Inactive MIRALAX POWD 1 capfull once daily MIRALAX POWD 898081 POLYETHYLENE GLYCOL 3350 Inactive VERAPAMIL HCL ER 180 MG CR-TABS 1 tab po bid VERAPAMIL HCL ER 180 MG CR-TABS VERAPAMIL HCL Inactive LORATADINE 10 MG TABS 1 tab po qd LORATADINE 10 MG TABS 772759 LORATADINE Inactive LYRICA 50 MG CAPS 1 tab po TID LYRICA 50 MG CAPS PREGABALIN Inactive ZALEPLON 10 MG CAPS 1 cap po every other night ZALEPLON 10 MG CAPS 898730 ZALEPLON Inactive SAPHRIS 5 MG SUBL 1 tab po qd SAPHRIS 5 MG SUBL ASENAPINE MALEATE Inactive TRAZODONE HCL 50 MG TABS 1/2 tab po qd prn for anxiety TRAZODONE HCL 50 MG TABS 953877 TRAZODONE HCL Inactive LATUDA 20 MG TABS Take one by mouth daily LATUDA 20 MG TABS LURASIDONE HCL Inactive LISINOPRIL 20 MG TABS 1 tab po qd LISINOPRIL 20 MG TABS 187619 LISINOPRIL Inactive SAPHRIS 10 MG SUBL 1 [...] twice daily BACTRIM DS 800-160 MG TAB 078962 TRIMETHOPRIM-SULFAMETHOXAZOLE Inactive MULTIVITAMINS CAPS Take one by mouth daily MULTIVITAMINS CAPS MULTIPLE VITAMIN Inactive MELATONIN 3 MG CAPS 2 po q hs MELATONIN 3 MG CAPS 337586 MELATONIN Inactive KEFLEX 500 MG ORAL CAPS 1 cap QID by mouth KEFLEX 500 MG ORAL CAPS 686887 CEPHALEXIN Inactive CLINDAMYCIN HCL 150 MG CAPS 1 four times a day CLINDAMYCIN HCL 150 MG CAPS 333467 CLINDAMYCIN HCL Inactive DIFLUCAN 150 MG TAB 1 tablet by mouth daily DIFLUCAN 150 MG TAB 889608 FLUCONAZOLE Inactive PROZAC 20 MG CAP Take one by mouth daily PROZAC 20 MG CAP 924325 FLUOXETINE HCL Inactive IBUPROFEN 600 MG TAB 1 po TID PRN IBUPROFEN 600 MG TAB 184633 IBUPROFEN Inactive VYVANSE 40 MG CAPS 1 daily, VYVANSE 40 MG CAPS LISDEXAMFETAMINE DIMESYLATE Inactive TRAZODONE HCL 100 MG TAB take 1 at bedtime TRAZODONE HCL 100 MG TAB 711643 TRAZODONE HCL Inactive AMITRIPTYLINE HCL 100 MG TAB one at hs AMITRIPTYLINE HCL 100 MG TAB 078274 AMITRIPTYLINE HCL Inactive AMLODIPINE BESYLATE 5 MG TABS 1 tablet by mouth daily AMLODIPINE BESYLATE 5 MG TABS 146167 AMLODIPINE BESYLATE Inactive LATUDA 80 MG TABS Take one by mouth daily LATUDA 80 MG TABS LURASIDONE HCL Inactive SAPHRIS 5 MG SUBL 1 po bid SAPHRIS 5 MG SUBL ASENAPINE MALEATE Inactive PREDNISONE 20 MG TAB 2 tabs daily for 4 days, 1 tab daily for 4 days, 1/2 tab daily for 4 days PREDNISONE 20 MG TAB 764261 PREDNISONE Inactive AMBIEN 5 MG ORAL TABS 1 tab at bedtime AMBIEN 5 MG ORAL TABS 979747 ZOLPIDEM TARTRATE Inactive PROZAC 20 MG ORAL CAPS 1 tab daily PROZAC 20 MG ORAL CAPS 625536 FLUOXETINE HCL Inactive ABILIFY 15 MG ORAL TABS 1 tab daily ABILIFY 15 MG ORAL TABS 684855 ARIPIPRAZOLE Inactive METOPROLOL TARTRATE 50 MG TAB 1 po bid METOPROLOL TARTRATE 50 MG TAB 045337 METOPROLOL TARTRATE Inactive TRAMADOL HCL 50 MG TABS 1-2 po TID PRN Pain TRAMADOL HCL 50 MG TABS 464591 TRAMADOL HCL Inactive PIROXICAM 20 MG CAPS 1 cap po qd PRN Pain PIROXICAM 20 MG CAPS 169166 PIROXICAM Inactive MINIPRESS 2 MG CAPS 4 cap po at night MINIPRESS 2 MG CAPS 895872 PRAZOSIN HCL Inactive MIRALAX PACK 1 po qd PRN Constipation MIRALAX PACK 927546 POLYETHYLENE GLYCOL 3350 Inactive METOPROLOL TARTRATE 25 MG ORAL TABS 1/2 tablet twice daily for heart rate and blood pressure METOPROLOL TARTRATE 25 MG ORAL TABS 405392 METOPROLOL TARTRATE Inactive VALIUM 5 MG TAB Take 1-2 tablets daily VALIUM 5 MG TAB 961713 DIAZEPAM Inactive FLAGYL 500 MG TAB 1 tablet by mouth bid FLAGYL 500 MG TAB 433538 METRONIDAZOLE Inactive DICLOFENAC POTASSIUM TABS Take 1 tablet twice a day (pt. is not sure of the dose.) DICLOFENAC POTASSIUM TABS DICLOFENAC POTASSIUM TABS Inactive ZITHROMAX Z-EARNEST 250 MG TABS 2 today and then 1 daily for 4 days ZITHROMAX Z-EARNEST 250 MG TABS 2530528 AZITHROMYCIN Inactive PREDNISONE 20 MG TABS 2 daily for 5 days then 1 daily for 5 days PREDNISONE 20 MG TABS 383905 PREDNISONE Inactive PROAIR HFA 108 (90 BASE) MCG/ACT AERS 2 puffs four times a day as needed 2015 PROAIR HFA 108 (90 BASE) MCG/ACT AERS ALBUTEROL SULFATE Inactive HYDROCODONE-ACETAMINOPHEN 5-325 MG TABS 1 to 2 four times a day as needed for pain use until can be seen by specialist HYDROCODONE- ACETAMINOPHEN 5-325 MG TABS 165759 HYDROCODONE-ACETAMINOPHEN Inactive TESSALON PERLES 100 MG CAP 1 to 2 tablets by mouth 3 times daily as needed for cough TESSALON PERLES 100 MG CAP 333848 BENZONATATE Inactive CHANTIX STARTING MONTH EARNEST 0.5 [...] Pain 2015 DICLOFENAC SODIUM 50 MG TBEC 538584 DICLOFENAC SODIUM Inactive TOPAMAX 50 MG ORAL TABS 1 tab twice daily TOPAMAX 50 MG ORAL TABS 191967 TOPIRAMATE Inactive VIIBRYD 10 MG ORAL TABS Take 1 tablet once a day VIIBRYD 10 MG ORAL TABS VILAZODONE HCL Inactive LEVOFLOXACIN 500 MG ORAL TABS po daily LEVOFLOXACIN 500 MG ORAL TABS 668606 LEVOFLOXACIN Inactive METHYLPREDNISOLONE 4 MG ORAL TABS po daily METHYLPREDNISOLONE 4 MG ORAL TABS 004830 METHYLPREDNISOLONE Inactive OXYCODONE HCL ER 10 MG ORAL T12A 1/2 tab by mouth every 4 hours prn OXYCODONE HCL ER 10 MG ORAL T12A OXYCODONE HCL Inactive FLAGYL 500 MG TAB 1 tablet by mouth bid FLAGYL 500 MG TAB 590742 METRONIDAZOLE Inactive MONISTAT 7 COMBO PACK WOODROW 100 & 2 MG-% (9GM) VAG KIT 1 applicatorful per vagina q pm x 7 MONISTAT 7 COMBO PACK WOODROW 100 & 2 MG-% (9GM) VAG KIT MICONAZOLE NITRATE Inactive BACTRIM DS 800-160 MG TABS 1 twice a day BACTRIM DS 800-160 MG TABS 653154 SULFAMETHOXAZOLE-TRIMETHOPRIM Inactive TRAMADOL HCL 50 MG TABS 1/2-1 tab TID PRN TRAMADOL HCL 50 MG TABS 687145 TRAMADOL HCL Inactive ABILIFY MAINTENA 400 MG IM SUSR 400mg injection every 26 days ABILIFY MAINTENA 400 MG IM SUSR ARIPIPRAZOLE Inactive KLONOPIN 1 MG ORAL TABS 1 tab po TID KLONOPIN 1 MG ORAL TABS 796037 CLONAZEPAM Inactive ADVAIR DISKUS 250-50 MCG/DOSE INH AEPB 1 puff twice a day for asthma ADVAIR DISKUS 250-50 MCG/DOSE INH AEPB FLUTICASONE- SALMETEROL Inactive BENADRYL 25 MG CAP 4 po at bedtime for insomnia BENADRYL 25 MG CAP DIPHENHYDRAMINE HCL Inactive PREDNISONE 20 MG TABS 2 daily for 5 days then 1 daily for 5 days PREDNISONE 20 MG TABS 430948 PREDNISONE Inactive HYDROCODONE-ACETAMINOPHEN 5-325 MG ORAL TABS 1 tab two times a day HYDROCODONE-ACETAMINOPHEN 5-325 MG ORAL TABS 864802 HYDROCODONE-ACETAMINOPHEN Inactive ZITHROMAX Z-EARNEST 250 MG TABS 2 today and then 1 daily for 4 days ZITHROMAX Z-EARNEST 250 MG TABS 6730211 AZITHROMYCIN Inactive GUAIFENESIN-CODEINE 100-10 MG/5ML SYRP 5ml every 4 to 6 hours as needed for cough GUAIFENESIN-CODEINE 100-10 MG/5ML SYRP 007714 GUAIFENESIN-CODEINE Inactive HALOPERIDOL 10 MG ORAL TABS 1 tab q.d HALOPERIDOL 10 MG ORAL TABS 690665 HALOPERIDOL Inactive ASPIRIN 325 MG ORAL TABS 1 tab q.d ASPIRIN 325 MG ORAL TABS 750478 ASPIRIN Inactive FLUTICASONE PROPIONATE 50 MCG/ACT SUSP 2 sprays each nostril daily before bed. FLUTICASONE PROPIONATE 50 MCG/ACT SUSP 9556962 FLUTICASONE PROPIONATE Inactive ZOFRAN 4 MG TABS 1 po q6hr PRN Nausea ZOFRAN 4 MG TABS 838331 ONDANSETRON HCL Inactive CEFDINIR 300 MG CAPS by mouth twice a day CEFDINIR 300 MG CAPS 675656 CEFDINIR Inactive PREDNISONE 20 MG TAB 2 tabs daily for 3 days, 1 tab daily for 3 days, 1/2 tab daily for 2 days PREDNISONE 20 MG TAB 033402 PREDNISONE Inactive BACTRIM DS 800-160 MG TABS 1 po BID x 7 days BACTRIM DS 800-160 MG TABS 19820521 SULFAMETHOXAZOLE-TRIMETHOPRIM Inactive DIFLUCAN 150 MG TABS 1 pill every other day x 2 doses DIFLUCAN 150 MG TABS 212467 FLUCONAZOLE Inactive BACTRIM DS 800-160 MG TABS 1 pill by mouth twice daily BACTRIM DS 800-160 MG TABS 19820521 SULFAMETHOXAZOLE-TRIMETHOPRIM Inactive KEFLEX 500 MG CAP 1 po TID x 10 days KEFLEX 500 MG CAP 691947 CEPHALEXIN Inactive Advance Directives Directive Description Start [...] % 11.0-15.0 platelet count 443 THOUSAND/UL 10*3/mm3 739-824 1559/03/01 mean platelet volume 8.2 fL 7.5-12.5 Lab [...] 369 10^3/MM^3 10*3/mm3 142-424 Lab Report: Chlamydia/GC APTIMA/[id number] - Lab chlamydia DNA probe NOT DETECTED NOT DETECTED Lab Report: Chlamydia/GC APTIMA/[id number] - Microbiology Neisseria gonorrhoeae DNA probe NOT DETECTED NOT DETECTED Lab Report: Chlamydia/GC APTIMA/82026, Urinalysis, Complete, with Reflex ... - Lab chlamydia DNA probe NOT DETECTED NOT DETECTED Lab Report: Chlamydia/GC APTIMA/[id number], Urinalysis, Complete, with Reflex ... - Microbiology Neisseria gonorrhoeae DNA probe NOT DETECTED NOT DETECTED Lab Report: Chlamydia/GC APTIMA/[id number], Urinalysis, Complete, with Reflex ... - Urinalysis microalbumin/total urine volume 2 mg/L Units converted. See lab report for original value. microalbumin/creatinine ratio, urine 9 MCG/MG CREAT mg/L <30 Lab Report: Comp. Metabolic Panel - Chemistry sodium, serum 142 mmol/L 353-445 0666/06/08 carbon dioxide, venous blood 27.6 mmol/L 21.0-32.0 potassium, serum 4.0 mmol/L 3.5-5.2 chloride, serum 105 mmol/L 98-107 blood glucose 95 mg/dL 65-110 urea nitrogen, blood 8 mg/dL 7-18 creatinine, serum 0.75 mg/dL 0.55-1.30 alanine aminotransferase (SGPT), serum 49 U/L - aspartate aminotransferase (SGOT), serum 28 U/L 15-37 calcium, serum 9.4 mg/dL 8.5-10.1 bilirubin, serum, total 0.30 mg/dL 0.00-1.00 sodium, serum 140 mmol/L 228-010 3117/08/08 carbon dioxide, venous blood 33.7 mmol/L 21.0-32.0 [...] mg/dL Encounters Code Encounter Date Provider Facility CPT-29109 Level 3 Est. Patient 11:04:38 CDT Renzo W Norberto [facility] CPT-84955 Level 3 Est. Patient 11:15:58 MULTISKILL OPERATOR Renzo Thornton [facility] CPT-77037 Level 3 Est. Patient 15:28:23 MULTISKILL OPERATOR Suzan Boo [facility] CPT-31110 Level 4 Est. Patient 10:20:54 MULTISKILL OPERATOR Suzan Boo [facility] CPT-61387 Level 3 Est. Patient 11:47:37 MULTISKILL OPERATOR Ahmet Carbajal MD [facility] CPT-63511 Level 3 Est. Patient 10:40:11 MULTISKILL OPERATOR Ahmet Carbajal MD [facility] CPT-69175 Level 3 Est. Patient 15:07:06 MULTISKILL OPERATOR Neeraj Collins MD [facility] CPT-93651 Level 4 Est. Patient 14:45:00 MULTISKILL OPERATOR Ahmet Carbajal MD [facility] CPT-08480 Level 3 Est. Patient 13:59:59 CDT 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 [facility] CPT-57307 Level 3 Est. Patient 18:18:53 CDT Neeraj Collins MD [facility] CPT-91672 Level 3 Est. Patient 15:50:44 CDT Vishal Hui MD [facility] CPT-04312 Level 3 Est. Patient 11:36:17 CDT Ahmet Carbajal MD [facility] CPT-51160 Level 3 Est. Patient 13:29:16 CDT Vishal Hui MD [facility] CPT-49788 Level 3 Est. Patient 14:27:52 CDT Neeraj Collins MD [facility] CPT-65871 Level 3 Est. Patient 08:56:03 CDT 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 [facility] CPT-22454 Level 4 Est. Patient 12:11:48 CDT Fabiola Johnson [facility] CPT-63216 Level 3 New Patient 16:53:37 CDT Albert Caldera MD [facility] CPT-71336 Level 3 Est. Patient 11:25:49 CDT Renzo Thornton [facility] CPT-50500 Level 3 Est. Patient 15:22:01 CDT Ahmet Carbajal MD [facility] CPT-12303 Level 4 Est. Patient 09:00:51 MULTISKILL OPERATOR Vishal Hui MD [facility] CPT-41094 Level 3 Est. Patient 11:37:33 MULTISKILL OPERATOR Vishal Hui MD [facility] CPT-59536 Level 3 Est. Patient 08:41:09 MULTISKILL OPERATOR Vishal Hui MD [facility] CPT-43925 Level 4 Est. Patient 10:19:35 MULTISKILL OPERATOR Vishal Hui MD [facility] CPT-90002 Level 3 Est. Patient 13:35:45 CDT Vishal Hui MD [facility] CPT-24461 Level 4 Est. Patient 10:08:37 CDT Vishal Hui MD [facility] CPT-40052 Level 3 Est. Patient 11:22:10 CDT Vishal Hui MD [facility] CPT-90814 Level 3 Est. Patient 11:03:32 CDT Sahara Rodriguez MD, PhD [facility] CPT-37391 Level 3 Est. Patient 09:41:35 CDT Vishal Hui MD [facility] CPT-31103 Level 3 Est. Patient 12:00:41 CDT Neeraj Collins MD [facility] CPT-24048 Level 3 Est. Patient 09:16:24 CDT Vishal Hui MD [facility] CPT-50551 Level 4 Est. Patient 13:59:09 CDT Neeraj Collins MD [facility] CPT-35103 Level 3 Est. Patient 15:19:43 CDT Renzo Thornton DO [facility] CPT-42459 Level 3 Est. Patient 18:10:26 CDT Sahara Rodriguez MD PhD [facility] CPT-67881 Level 3 Est. Patient 14:49:50 CDT Vishal Hui MD [facility] CPT-28965 Level 4 Est. Patient 18:41:46 CDT Neeraj Collins MD [facility] CPT-93647 Level 4 Est. Patient 09:18:38 MULTISKILL OPERATOR Vishal Hui MD [facility] CPT-63193 Level 3 Est. Patient 14:43:55 MULTISKILL OPERATOR Vishal Hui MD [facility] CPT-28714 Level 3 Est. Patient 15:26:33 MULTISKILL OPERATOR Sahara Rodriguez MD PhD [facility] CPT-42137 Level 3 Est. Patient 10:32:14 MULTISKILL OPERATOR Vishal Hui MD [facility] CPT-29796 Level 3 Est. Patient 15:12:52 MULTISKILL OPERATOR Vishal Hui MD [facility] CPT-89864 Level 4 Est. Patient 09:19:27 CDT Vishal Hui MD [facility] CPT-20331 Level 3 Est. Patient 15:53:00 CDT Renzo Thornton [facility] CPT-81402 Level 3 Est. Patient 15:50:30 CDT Renzo Thornton [facility] CPT-70276 Level 3 Est. Patient 16:55:24 CDT Vishal Hui MD [facility] Procedures Code Procedure Name Date Entry Date Standard Description CPT-17097 Smoking Cessation counseling 11:15:58 MULTISKILL OPERATOR CPT-G0439 [facility] Annual Wellness Exam 09:30:58 MULTISKILL OPERATOR CPT-96317 TSH - LAB USE ONLY 08:50:26 MULTISKILL OPERATOR CPT-33231 CBC - LAB USE ONLY 08:50:26 MULTISKILL OPERATOR CPT-84406 Venipuncture Draw Fee 08:50:26 MULTISKILL OPERATOR CPT-72710 Abx/Therapy Injection 17:34:30 MULTISKILL OPERATOR CPT-17898 Nexplanon Removal with Reinsertion 14:09:32 CDT CPT-J7307 Nexplanon (Implant) 14:09:32 CDT CPT-OV Office Visit 14:09:32 CDT CPT-93591 UA w micro - LAB USE ONLY 16:21:13 CDT CPT-01370 Wet Mount - LAB USE ONLY 16:21:13 CDT CPT-53775 First Vx - Ix admin for Medicare patients 14:37:47 CDT CPT-57363 Fluzone Preservative Free Intramuscular Suspension 14:37 :47 CDT CPT-07948 Abx/Therapy Injection 13:54:22 CDT CPT-51069 Abx/Therapy Injection 08:47:09 CDT CPT-08062 Abx/Therapy Injection 13:29:56 CDT CPT-97222 Abx/Therapy Injection 08:36:16 CDT CPT-50232 Wet Mount - LAB USE ONLY 17:44:58 CDT CPT-01040 UA w micro - LAB USE ONLY 17:44:58 CDT CPT-78462 CMP - LAB USE ONLY 17:44:58 CDT CPT-91581 Venipuncture Draw Fee 17:44:58 CDT CPT-18891 Cervical Min 4V - XRAY USE ONLY 09:01:40 CDT CPT-94305 Chest 2V Frontal and Lat - XRAY USE ONLY 11:06:31 CDT CPT-55675 EKG Trac and Interp - XRAY USE ONLY 11:31:43 CDT 08/26 CPT-J3420 Vitamin B12 1000mcg (Cyanocobalamin) 08:10:26 MULTISKILL OPERATOR 04/12 CPT-72979 Abx/Therapy Injection 08:10:26 MULTISKILL OPERATOR CPT-G0438 Initial Annual Wellness Exam 19:01:01 MULTISKILL OPERATOR CPT-J3420 Vitamin B12 1000mcg (Cyanocobalamin) 16:57:46 CDT 08/14 CPT-89425 Recombivax HB Injection Suspension 5 MCG/0.5ML 08:37:50 MULTISKILL OPERATOR CPT-52483 Immunization Single Admin 08:37:50 MULTISKILL OPERATOR CPT-J3420 Vitamin B12 1000mcg (Cyanocobalamin) 08:32:16 MULTISKILL OPERATOR 03/11 CPT-33336 Abx/Therapy Injection 08:32:16 MULTISKILL OPERATOR CPT-25273 Chest 2V Frontal and Lat 11:46:38 MULTISKILL OPERATOR CPT-29043 Venipuncture Draw Fee 09:12:45 MULTISKILL OPERATOR CPT-J3420 Vitamin B12 1000mcg (Cyanocobalamin) 08:50:15 MULTISKILL OPERATOR 02/08 CPT-08054 Abx/Therapy Injection 08:50:15 MULTISKILL OPERATOR CPT-Cryo Cryotherapy 10:19:35 MULTISKILL OPERATOR CPT-000 Give Appropriate Flu Vaccine 09:22:16 CDT CPT-J3420 Vitamin B12 1000mcg (Cyanocobalamin) 19:08:57 CDT 01/11 CPT-95582 Abx/Therapy Injection 19:08:57 CDT CPT-J3420 Vitamin B12 1000mcg (Cyanocobalamin) 08:19:08 CDT 12/11 CPT-17689 Abx/Therapy Injection 08:19:08 CDT CPT-J3420 Vitamin B12 1000mcg (Cyanocobalamin) 14:48:00 CDT 11/09 CPT-50886 Abx/Therapy Injection 14:47:59 CDT CPT-J3420 Vitamin B12 1000mcg (Cyanocobalamin) 08:34:04 CDT 10/09 CPT-89541 Abx/Therapy Injection 08:34:04 CDT CPT-J3420 Vitamin B12 1000mcg (Cyanocobalamin) 09:18:52 CDT 09/11 CPT-82223 Abx/Therapy Injection 09:18:52 CDT CPT-J3420 Vitamin B12 1000mcg (Cyanocobalamin) 08:35:44 CDT 09/04 CPT-50616 Abx/Therapy Injection 08:35:44 CDT CPT-54096 Immunization Single Admin 11:07:16 CDT CPT-42202 Hepatitis B adult IM 11:07:16 CDT CPT-J3420 Vitamin B12 1000mcg (Cyanocobalamin) 11:00:49 CDT 08/28 CPT-J1040 Depo Medrol 80 mg (Methyl Prednisolone Acetate) 11:00: 49 CDT CPT-35448 Abx/Therapy Injection 11:00:49 CDT CPT-J1040 Depo Medrol 80 mg (Methyl Prednisolone Acetate) 09:16: 23 CDT CPT-J3420 Vitamin B12 1000mcg (Cyanocobalamin) 08:27:05 CDT 08/20 CPT-41626 Abx/Therapy Injection 08:27:05 CDT CPT-58551 Recombivax HB Injection Suspension 5 MCG/0.5ML 10:00:41 CDT CPT-83995 Administration single or combination vaccine inc oral 10 :00:41 CDT CPT-70986 Sono transvag pelvis non OB uterus ovaries cervix 16:36: 57 CDT CPT-77208 LS spine comp w obliq 09:50:55 MULTISKILL OPERATOR CPT-94613 Abd compl w upright 09:50:55 MULTISKILL OPERATOR CPT-J1100 Decadron 4mg (Dexamethasone) 15:51:24 MULTISKILL OPERATOR CPT-J1030 Depo Medrol 40 mg (Methyl Prednisolone Acetate) 15:51: 24 MULTISKILL OPERATOR CPT-55259 Abx/Therapy Injection 15:51:24 MULTISKILL OPERATOR CPT-J1100 Decadron 4mg (Dexamethasone) 15:26:33 MULTISKILL OPERATOR CPT-J1030 Depo Medrol 40 mg (Methyl Prednisolone Acetate) 15:26: 33 MULTISKILL OPERATOR CPT-33201 Sono retroperitoneal complete kidneys and bladder 17:15: 30 CDT CPT-42629 Abd compl w upright 16:09:25 CDT CPT-J1100 Decadron 8mg (Dexamethasone) 17:07:57 CDT CPT-53900 Abx/Therapy Injection 17:07:57 CDT CPT-J1100 Decadron 8mg (Dexamethasone) 16:55:24 CDT CPT-69277 Chest 2V Frontal and Lat 16:32:44 CDT
--- OUTSIDE RECORDS SUMMARY | 2016-11-04 11:13 | XMS REPORT | Clinical Summary ---
Author Author Admin, E Organization [employer] Address Unknown Phone Unavailable Allergies, Adverse Reactions, Alerts Allergy Name Reaction Description Start Date Severity Status Provider AMITRIPTYLINE HCL Mood changes. LDA MA Critical [...] MD Pain in joint involving multiple sites Anxiety Disorder ICD-300.00 Inactive Vishal Hui MD Pneumonia, organism unspecified ICD-486 Inactive Vihsal Hui MD Flank pain, right ICD-789.09 Inactive [...] blood glucose ICD-790.29 Inactive Vishal Hui MD Medication List Medication Instructions Start Date Stop Date Generic Name NDC Status Provider Patient Instruction PREDNISONE 20 MG TAB 2 tabs daily for 4 days, 1 tab daily for 4 days, 1/2 tab daily for 4 days PREDNISONE 51263071527 Active Vishal Hui MD Active IMITREX 50 MG ORAL TABS 1/2 tab every 6 hours prn SUMATRIPTAN SUCCINATE 25712131306 Active Tataina Mauricio NORIEGA Active AMBIEN 5 MG ORAL TABS 1 tab at bedtime ZOLPIDEM TARTRATE 30391501444 Active Pacollina Mauricio WALTERSN Active PROZAC 20 MG ORAL CAPS 1 tab daily FLUOXETINE HCL 94686241086 Active Jillina Johnl DIRECTOR TRADE Active ABILIFY 15 MG ORAL TABS 1 tab daily ARIPIPRAZOLE 60404055992 Active Jillina Johnl DIRECTOR TRADE Active MINIPRESS 2 MG CAPS 4 cap po at night PRAZOSIN HCL 38442151533 Active Jillina Frazell DIRECTOR TRADE Active TOPAMAX 50 MG ORAL TABS 1 tab twice daily TOPIRAMATE 03121797673 Active Pacollina Mauricio WALTERSN Active SAPHRIS 5 MG SUBL 1 po bid ASENAPINE MALEATE 07687966888 No Longer Active Pacollina Mauricio NORIEGA Active LATUDA 80 MG TABS Take one by mouth daily LURASIDONE HCL 44992578925 No Longer Active Pacollina Mauricio WALTERSN Active AMLODIPINE BESYLATE 5 MG TABS 1 tablet by mouth daily AMLODIPINE BESYLATE 42186907013 No Longer Active Tataina Mauricio NORIEGA Active AMITRIPTYLINE HCL 100 MG TAB one at hs AMITRIPTYLINE HCL 75600654916 No Longer Active Vishal Hui MD Active TRAZODONE HCL 100 MG TAB take 1 at bedtime TRAZODONE HCL 39676767788 No Longer Active Vishal Hui MD Active VYVANSE 40 MG CAPS 1 daily, LISDEXAMFETAMINE DIMESYLATE 48917296574 No Longer Active Vishal Hui MD Active IBUPROFEN 600 MG TAB 1 po TID PRN IBUPROFEN 67554164755 No Longer Active Vishal Hui MD Active MIRALAX PACK 1 po qd PRN Constipation POLYETHYLENE GLYCOL 3350 53784150169 Active Vishal Hui MD Active PROZAC 20 MG CAP Take one by mouth daily FLUOXETINE HCL 36260955838 No Longer Active Vishal Hui MD Active ZOFRAN 4 MG TABS 1 po q6hr PRN Nausea ONDANSETRON HCL Active Vishal Hui MD Active BACTRIM DS 800-160 MG TABS 1 pill by mouth twice daily SULFAMETHOXAZOLE-TRIMETHOPRIM 15350387059 No Longer Active Sahara Rodriguez MD PhD Active DIFLUCAN 150 MG TAB 1 tablet by mouth daily FLUCONAZOLE 73054599751 No Longer Active Vishal Hui MD Active TIZANIDINE HCL 4 MG TABS 1 po q6hr PRN Muscle Spasm/Back Pain TIZANIDINE HCL 63656474029 Active Vishal Hui MD Active CLINDAMYCIN HCL 150 MG CAPS 1 four times a day CLINDAMYCIN HCL 10851868677 No Longer Active Neeraj Collins MD Active KEFLEX 500 MG ORAL CAPS 1 cap QID by mouth CEPHALEXIN 55688676020 No Longer Active Neeraj Collins MD Active DIFLUCAN 150 MG TABS 1 pill every other day x 2 doses FLUCONAZOLE 52519168708 No Longer Active Sahara Rodriguez MD PhD Active MELATONIN 3 MG CAPS 2 po q hs MELATONIN 55820362566 No Longer Active Sahara Rodriguez MD PhD Active MULTIVITAMINS CAPS Take one by mouth daily MULTIPLE VITAMIN 32676697479 No Longer Active Sahara Rodriguez MD PhD Active BACTRIM DS 800-160 MG TAB 1 tab by mouth twice daily TRIMETHOPRIM-SULFAMETHOXAZOLE 99139606186 No Longer Active Sahara Rodriguez MD PhD Active [facility] PROBIOTIC ORAL CHEW 2 daily po PROBIOTIC PRODUCT 15296012269 No Longer Active Sahara Rodriguez MD PhD Active BACTRIM DS 800-160 MG TABS 1 po BID x 7 days SULFAMETHOXAZOLE-TRIMETHOPRIM 83896551162 No Longer Active Vishal Hui MD Active CHANTIX STARTING MONTH EARNEST 0.5 MG X 11 & 1 MG X 42 TABS 0.5mg daily for 3 days , then 0.5mg BID for 4 days, then 1mg BID VARENICLINE TARTRATE 94976385340 No Longer Active TAMARA Gray Active METOPROLOL TARTRATE 50 MG TAB 1 po bid METOPROLOL TARTRATE 58260977023 Active Vishal Hui MD Active VERAPAMIL HCL CR 120 MG TAB CR 1 po bid VERAPAMIL HCL 06791671877 No Longer Active Vishal Hui MD Active METOPROLOL SUCCINATE 50 MG TB24 1 tablet by mouth daily METOPROLOL SUCCINATE 64044292784 No Longer Active Vishal Hui MD Active TRAMADOL HCL 50 MG TABS 1-2 po TID PRN Pain TRAMADOL HCL 84500887523 Active Vishal Hui MD Active SAPHRIS 10 MG SUBL 1 tab po bid ASENAPINE MALEATE 60619897790 No Longer Active Vishal Hui MD Active LISINOPRIL 20 MG TABS 1 tab po qd LISINOPRIL 53397358122 No Longer Active Vishal Hui MD Active BENADRYL 25 MG CAP 2 po tid prn anxiety DIPHENHYDRAMINE HCL 58844674623 Active Vishal Hui MD Active LATUDA 20 MG TABS Take one by mouth daily LURASIDONE HCL 07105663678 No Longer Active Vishal Hui MD Active TRAZODONE HCL 50 MG TABS 1/2 tab po qd prn for anxiety TRAZODONE HCL 21408972192 No Longer Active Vishal Hui MD Active PIROXICAM 20 MG CAPS 1 cap po qd PRN Pain PIROXICAM 68355104661 Active Vishal Hui MD Active OMEPRAZOLE 20 MG TBEC 1 po q a.m. 30min prior to first food intake OMEPRAZOLE 98273804335 Active Vishal Hui MD Active RANITIDINE HCL 150 MG CAPS 1 twice a day RANITIDINE HCL 98705878385 Active Vishal Hui MD Active LINZESS 290 MCG CAPS Take one by mouth daily LINACLOTIDE 31606359758 No Longer Active Vishal Hui MD Active SAPHRIS 5 MG SUBL 1 tab po qd ASENAPINE MALEATE 02316677241 No Longer Active Vishal Hui MD Active ZALEPLON 10 MG CAPS 1 cap po every other night ZALEPLON 74839904328 No Longer Active Vishal Hui MD Active LYRICA 50 MG CAPS 1 tab po TID PREGABALIN 55993793043 No Longer Active Vishal Hui MD Active LORATADINE 10 MG TABS 1 tab po qd LORATADINE 36846137667 No Longer Active Vishal Hui MD Active VERAPAMIL HCL ER 180 MG CR-TABS 1 tab po bid VERAPAMIL HCL 38688436040 No Longer Active Vishal Hui MD Active MIRALAX POWD 1 capfull once daily POLYETHYLENE GLYCOL 3350 59793871376 No Longer Active Vishal Hui MD Active PREDNISONE 20 MG TABS 1 tab po qd PREDNISONE 56906585603 No Longer Active Renzo Thornton DO Active LEVOFLOXACIN 500 MG TABS 1 tab po qd LEVOFLOXACIN 21071216295 No Longer Active Renzo Thornton DO Active BUSPIRONE HCL 15 MG TABS 1 tab po TID BUSPIRONE HCL 38327768419 No Longer Active Renzo Thornton DO Active BENZTROPINE MESYLATE 1 MG TABS 1 tab po qd BENZTROPINE MESYLATE 04170830242 No Longer Active Renzo Thornton DO Active ATENOLOL 25 MG TABS 1 tab po qd ATENOLOL 25934842796 No Longer Active Renzo Thornton DO Active ESCITALOPRAM OXALATE 20 MG TABS 1 tab po qd ESCITALOPRAM OXALATE 44030278404 No Longer Active Renzo Thornton DO Active ADVAIR DISKUS 250-50 MCG/DOSE AEPB 1 puff BID FLUTICASONE-SALMETEROL 87069797607 No Longer Active Renzo Thornton DO Active PREDNISONE 20 MG TAB 2 tabs daily for 3 days, 1 tab daily for 3 days, 1/2 tab daily for 2 days PREDNISONE 46460791937 No Longer Active Vishal Hui MD Active CEFDINIR 300 MG CAPS by mouth twice a day CEFDINIR 49289644150 No Longer Active Vishal Hui MD Active LANSOPRAZOLE 30 MG CPDR 1 cap po qd LANSOPRAZOLE 29023401941 No Longer Active Vishal Hui MD Active BACLOFEN 20 MG TABS 1 tab po tid BACLOFEN 34093695931 No Longer Active Vishal Hui MD Active ADVAIR DISKUS 250-50 MCG/DOSE AEPB 1 puff BID ADVAIR DISKUS 250-50 MCG/DOSE AEPB FLUTICASONE-SALMETEROL Inactive ESCITALOPRAM OXALATE 20 MG TABS 1 tab po qd ESCITALOPRAM OXALATE 20 MG TABS 745300 ESCITALOPRAM OXALATE Inactive ATENOLOL 25 MG TABS 1 tab po qd ATENOLOL 25 MG TABS 625462 ATENOLOL Inactive BENZTROPINE MESYLATE 1 MG TABS 1 tab po qd BENZTROPINE MESYLATE 1 MG TABS 071451 BENZTROPINE MESYLATE Inactive BUSPIRONE HCL 15 MG TABS 1 tab po TID BUSPIRONE HCL 15 MG TABS 920513 BUSPIRONE HCL Inactive LEVOFLOXACIN 500 MG TABS 1 tab po qd LEVOFLOXACIN 500 MG TABS 012674 LEVOFLOXACIN Inactive PREDNISONE 20 MG TABS 1 tab po qd PREDNISONE 20 MG TABS 240419 PREDNISONE Inactive MIRALAX POWD 1 capfull once daily MIRALAX POWD 918174 POLYETHYLENE GLYCOL 3350 Inactive VERAPAMIL HCL ER 180 MG CR-TABS 1 tab po bid VERAPAMIL HCL ER 180 MG CR-TABS VERAPAMIL HCL Inactive LORATADINE 10 MG TABS 1 tab po qd LORATADINE 10 MG TABS 664616 LORATADINE Inactive LYRICA 50 MG CAPS 1 tab po TID LYRICA 50 MG CAPS PREGABALIN Inactive ZALEPLON 10 MG CAPS 1 cap po every other night ZALEPLON 10 MG CAPS 906739 ZALEPLON Inactive SAPHRIS 5 MG SUBL 1 tab po qd SAPHRIS 5 MG SUBL ASENAPINE MALEATE Inactive TRAZODONE HCL 50 MG TABS 1/2 tab po qd prn for anxiety TRAZODONE HCL 50 MG TABS 944798 TRAZODONE HCL Inactive LATUDA 20 MG TABS Take one by mouth daily LATUDA 20 MG TABS LURASIDONE HCL Inactive LISINOPRIL 20 MG TABS 1 tab po qd LISINOPRIL 20 MG TABS 935705 LISINOPRIL Inactive SAPHRIS 10 MG SUBL 1 [...] twice daily BACTRIM DS 800-160 MG TAB 910515 TRIMETHOPRIM-SULFAMETHOXAZOLE Inactive MULTIVITAMINS CAPS Take one by mouth daily MULTIVITAMINS CAPS MULTIPLE VITAMIN Inactive MELATONIN 3 MG CAPS 2 po q hs MELATONIN 3 MG CAPS 356048 MELATONIN Inactive KEFLEX 500 MG ORAL CAPS 1 cap QID by mouth KEFLEX 500 MG ORAL CAPS 534471 CEPHALEXIN Inactive CLINDAMYCIN HCL 150 MG CAPS 1 four times a day CLINDAMYCIN HCL 150 MG CAPS 738893 CLINDAMYCIN HCL Inactive DIFLUCAN 150 MG TAB 1 tablet by mouth daily DIFLUCAN 150 MG TAB 585593 FLUCONAZOLE Inactive PROZAC 20 MG CAP Take one by mouth daily PROZAC 20 MG CAP 178209 FLUOXETINE HCL Inactive IBUPROFEN 600 MG TAB 1 po TID PRN IBUPROFEN 600 MG TAB 124750 IBUPROFEN Inactive VYVANSE 40 MG CAPS 1 daily, VYVANSE 40 MG CAPS LISDEXAMFETAMINE DIMESYLATE Inactive TRAZODONE HCL 100 MG TAB take 1 at bedtime TRAZODONE HCL 100 MG TAB 862388 TRAZODONE HCL Inactive AMITRIPTYLINE HCL 100 MG TAB one at hs AMITRIPTYLINE HCL 100 MG TAB 907571 AMITRIPTYLINE HCL Inactive AMLODIPINE BESYLATE 5 MG TABS 1 tablet by mouth daily AMLODIPINE BESYLATE 5 MG TABS 522489 AMLODIPINE BESYLATE Inactive LATUDA 80 MG TABS Take one by mouth daily LATUDA 80 MG TABS LURASIDONE HCL Inactive SAPHRIS 5 MG SUBL 1 po bid SAPHRIS 5 MG SUBL ASENAPINE MALEATE Inactive CEFDINIR 300 MG CAPS by mouth twice a day CEFDINIR 300 MG CAPS 710204 CEFDINIR Inactive PREDNISONE 20 MG TAB 2 tabs daily for 3 days, 1 tab daily for 3 days, 1/2 tab daily for 2 days PREDNISONE 20 MG TAB 117841 PREDNISONE Inactive BACTRIM DS 800-160 MG TABS 1 po BID x 7 days BACTRIM DS 800-160 MG TABS 19820521 SULFAMETHOXAZOLE-TRIMETHOPRIM Inactive DIFLUCAN 150 MG TABS 1 pill every other day x 2 doses DIFLUCAN 150 MG TABS 060339 FLUCONAZOLE Inactive BACTRIM DS 800-160 MG TABS 1 pill by mouth twice daily BACTRIM DS 800-160 MG TABS 19820521 SULFAMETHOXAZOLE-TRIMETHOPRIM Inactive Vital Signs Date Name Value Unit [...] pressure, diastolic - 8462-4 75 mm[Hg] BP mcnalyl blood pressure, systolic - 8480-6 126 mm[Hg] [...] E&M - 3141-9 267 [lb_av] Weight Measured Diagnostic Results Date Name [...] % 11.6-14.8 platelet count 394 10^3/MM^3 10*3/mm3 142-424 Lab Report: CBC W/DIFF [...] Panel - Chemistry sodium, serum 139 mmol/L 395-608 7714/12/03 carbon dioxide, venous blood 28.5 mmol/L 21.0-32.0 [...] 5.5 % 4.3-6.0 cholesterol, serum 159 mg/dL 230-743 8229/12/03 triglyceride, serum, fasting 118 mg/dL 30-200 HDL [...] count 362 10^3/MM^3 10*3/mm3 142-424 Lab Report: CBC, Comp. Metabolic Panel, Free Thyroxine (L), Thyroid Stim ... - Chemistry sodium, serum 140 mmol/L 612-638 9297/05/28 potassium, serum 4.2 mmol/L 3.5-5.2 chloride, serum [...] Panel - Chemistry sodium, serum 141 mmol/L 775-507 9971 potassium, serum 4.3 mmol/L 3.5-5.2 chloride, serum 106 mmol/L 98-107 carbon dioxide, venous blood 25.7 mmol/L 21.0-32.0 blood glucose 119 mg/dL 65-110 urea nitrogen, blood 22 mg/dL 7-18 creatinine, serum 0.90 mg/dL 0.60-1.30 alanine aminotransferase (SGPT), serum 28 U/L 12-78 aspartate aminotransferase (SGOT), serum 13 U/L 15-37 calcium, serum 8.5 mg/dL 8.5-10.1 bilirubin, serum, total 0.20 mg/dL 0.00-1.00 sodium, serum 139 mmol/L 807-001 3833/12/22 carbon dioxide, venous blood 26.8 mmol/L 21.0-32.0 [...] Rate - Chemistry sodium, serum 139 mmol/L 783-072 3969/12/11 carbon dioxide, venous blood 25.4 mmol/L 21.0-32.0 [...] Negative Negative nitrite, urine, semiquantitative Negative Negative Lab Report: Thyroid Stimulating Hormone [...] 1.025 1.000-1.030 pH, urine, semiquantitative 5.5 5.0-8.5 Lab Report: UADIP W/MICRO, AUTO, [facility] [place] - Chemistry protein, total urine random Negative mg/dL Negative RBC, urine, dipstick Negative Negative human chorionic gonadotropin, urine, qualitative (urine test) Negative Negative Lab Report: UADIP W/MICRO, AUTO, [facility] [place] - Urinalysis urobilinogen, urine, semiquantitative (dipstick) 0.2 Normal leukocyte esterase, urine, by dipstick Negative Negative nitrite, urine, semiquantitative Negative Negative glucose, urine, semiquantitative Negative Negative ketones, urine, by test strip Negative Negative bilirubin, urine Negative Negative urine color Yellow Colorless;Lightyellow;Straw;Yellow appearance, urine Clear Clear specific gravity, urine 1.025 1.000-1.030 pH, urine, semiquantitative 7.0 5.0-8.5 Lab Report: Varicella-Zoater Inga IgG,IgM/79627, HEP Be Antibody/556, RUB ... - Serology rubella antibody, serum, IgG 2.88 Encounters Code Encounter Date Provider Facility CPT-88389 Level 4 Est. Patient 09:00:51 [employer] Vishal Hui MD [facility] CPT-54167 Level 3 Est. Patient 11:37:33 [employer]PER[employer] Vishal Hui MD [facility] CPT-45277 Level 3 Est. Patient 08:41:09 [employer] Vishal Hui MD [facility] CPT-79873 Level 4 Est. Patient 10:19:35 [employer] SUPERVIS[employer] Vishal Hui MD [facility] CPT-99703 Level 3 Est. Patient 13:35:45 CDT Vishal Hui MD [facility] CPT-10949 Level 4 Est. Patient 10:08:37 CDT Vishal Hui MD [facility] CPT-86745 Level 3 Est. Patient 11:22:10 CDT Vishal Hui MD [facility] CPT-14910 Level 3 Est. Patient 11:03:32 CDT Sahara Rodriguez MD [facility]-79262 Level 3 Est. Patient 09:41:35 CDT Vishal Hui MD [facility] CPT-69094 Level 3 Est. Patient 12:00:41 CDT Neeraj Collins MD [facility] CPT-40480 Level 3 Est. Patient 09:16:24 CDT Vishal Hui MD [facility] CPT-39244 Level 4 Est. Patient 13:59:09 CDT Neeraj Collins MD [facility] CPT-87856 Level 3 Est. Patient 15:19:43 CDT Renzo Thornton DO [facility] CPT-41539 Level 3 Est. Patient 18:10:26 CDT Sahara Rodriguez MD [facility] [place]-[address]184 Level 3 Est. Patient 14:49:50 CDT Vishal Hui MD [facility] CPT-21310 Level 4 Est. Patient 18:41:46 CDT Neeraj Collins MD [facility]-34787 Level 4 Est. Patient 09:18:38 [employer] Vishal Hui MD [facility] CPT-45476 Level 3 Est. Patient 14:43:55 [employer]PER[employer] Vishal Hui MD [facility] CPT-56826 Level 3 Est. Patient 15:26:33 [employer]PER[employer] Sahara Rodriguez MD PhD [facility] CPT-50120 Level 3 Est. Patient 10:32:14 [employer] Vishal Hui MD [facility] CPT-60020 Level 3 Est. Patient 15:12:52 [employer]PER[employer] Vishal Hui MD [facility] CPT-99890 Level 4 Est. Patient 09:19:27 CDT Vishal Hui MD [facility] CPT-49715 Level 3 Est. Patient 15:53:00 CDT Renzo Thornton [facility] CPT-44665 Level 3 Est. Patient 15:50:30 CDT Renzo Thornton [facility] CPT-90470 Level 3 Est. Patient 16:55:24 CDT Vishal Hui MD [facility] Procedures Code Procedure Name Date Entry Date Standard Description CPT-91056 Recombivax HB Injection Suspension 5 MCG/0.5ML 08:37:50 [employer] CPT-16011 Immunization Single Admin 08:37:50 [employer] CPT-J3420 Vitamin B12 1000mcg (Cyanocobalamin) 08:32:16 [employer] 03/11 CPT-20509 Abx/Therapy Injection 08:32:16 [employer] CPT-00644 Chest 2V Frontal and Lat 11:46:38 [employer] CPT-33080 Venipuncture Draw Fee 09:12:45 [employer] CPT-J3420 Vitamin B12 1000mcg (Cyanocobalamin) 08:50:15 [employer] 02/08 CPT-25430 Abx/Therapy Injection 08:50:15 [employer] CPT-Cryo Cryotherapy 10:19:35 [employer] CPT-000 Give Appropriate Flu Vaccine 09:22:16 CDT CPT-J3420 Vitamin B12 1000mcg (Cyanocobalamin) 19:08:57 CDT 01/11 CPT-90654 Abx/Therapy Injection 19:08:57 CDT CPT-J3420 Vitamin B12 1000mcg (Cyanocobalamin) 08:19:08 CDT 12/11 CPT-65579 Abx/Therapy Injection 08:19:08 CDT CPT-J3420 Vitamin B12 1000mcg (Cyanocobalamin) 14:48:00 CDT 11/09 CPT-86568 Abx/Therapy Injection 14:47:59 CDT CPT-J3420 Vitamin B12 1000mcg (Cyanocobalamin) 08:34:04 CDT 10/09 CPT-32423 Abx/Therapy Injection 08:34:04 CDT CPT-J3420 Vitamin B12 1000mcg (Cyanocobalamin) 09:18:52 CDT 09/11 CPT-88877 Abx/Therapy Injection 09:18:52 CDT CPT-J3420 Vitamin B12 1000mcg (Cyanocobalamin) 08:35:44 CDT 09/04 CPT-92676 Abx/Therapy Injection 08:35:44 CDT CPT-31301 Immunization Single Admin 11:07:16 CDT CPT-94143 Hepatitis B adult IM 11:07:16 CDT CPT-J3420 Vitamin B12 1000mcg (Cyanocobalamin) 11:00:49 CDT 08/28 CPT-J1040 Depo Medrol 80 mg (Methyl Prednisolone Acetate) 11:00: 49 CDT CPT-94575 Abx/Therapy Injection 11:00:49 CDT CPT-J1040 Depo Medrol 80 mg (Methyl Prednisolone Acetate) 09:16: 23 CDT CPT-J3420 Vitamin B12 1000mcg (Cyanocobalamin) 08:27:05 CDT 08/20 CPT-22767 Abx/Therapy Injection 08:27:05 CDT CPT-79779 Recombivax HB Injection Suspension 5 MCG/0.5ML 10:00:41 CDT CPT-53873 Administration single or combination vaccine inc oral 10 :00:41 CDT CPT-12979 Sono transvag pelvis non OB uterus ovaries cervix 16:36: 57 CDT CPT-08307 LS spine comp w obliq 09:50:55 [employer] CPT-41667 Abd compl w upright 09:50:55 [employer] CPT-J1100 Decadron 4mg (Dexamethasone) 15:51:24 [employer] CPT-J1030 Depo Medrol 40 mg (Methyl Prednisolone Acetate) 15:51: 24 [employer] CPT-70347 Abx/Therapy Injection 15:51:24 [employer] CPT-J1100 Decadron 4mg (Dexamethasone) 15:26:33 [employer] CPT-J1030 Depo Medrol 40 mg (Methyl Prednisolone Acetate) 15:26: 33 [employer] CPT-25818 Sono retroperitoneal complete kidneys and bladder 17:15: 30 CDT CPT-76900 Abd compl w upright 16:09:25 CDT CPT-J1100 Decadron 8mg (Dexamethasone) 17:07:57 CDT CPT-74886 Abx/Therapy Injection 17:07:57 CDT CPT-J1100 Decadron 8mg (Dexamethasone) 16:55:24 CDT CPT-07266 Chest 2V Frontal and Lat 16:32:44 CDT
--- NOTE | 2016-11-04 11:14 | ED Headache ---
General Chief Complaint: Head/Cervical Problems Stated Complaint: HEADACHE Nursing Triage Note: Pt reports migraine x 2-3 days; has been taking imitrex and fiorecet without improvement; stated is having slurred speech, nausea and vomiting. has an neuro appt at on sunday of this week. Nursing Sepsis Screen: No Definite Risk Source: patient Exam Limitations: no limitations History of Present Illness Time seen by provider: 11:13 Initial Comments 31-year-old female patient presents to the emergency department on complaints of migraine for 2-3 days. Patient states she has chronic migraine headaches. States she took her Imitrex and Fioricet without improvement. Reports slurred speech, nausea, vomiting, and photophobia but states these are all normal symptoms for her with migraines. Patient is scheduled to see a neurologist at on Sunday. Timing/Duration: other (2-3 days) Severity/Quality: throbbing Location: occipital Prior Headaches/Recent Trauma: chronic headaches Modifying Factors: worse with exposure to light Allergies and Home Medications Allergies Coded Allergies: amoxicillin (Verified Allergy, Unknown, 10/14/16) clavulanic acid (Verified Allergy, Unknown, 10/14/16) quetiapine (Verified Allergy, Unknown, 10/14/16) ropinirole (Verified Allergy, Unknown, 10/14/16) Home Medications Atomoxetine HCl 25 Mg Capsule, 25 MG PO DAILY, (Reported) Butalb/Acetaminophen/Caffeine 1 Each Tablet, #30 (Reported) Fluoxetine HCl 10 Mg Capsule, #15 (Reported) Gabapentin 300 Mg Capsule, #270 (Reported) Lamotrigine 100 Mg Tablet, #60 (Reported) Lisdexamfetamine Dimesylate 60 Mg Capsule, 30 MG PO DAILY, #28 (Reported) Lubiprostone 24 Mcg Capsule, #60 (Reported) Metformin HCl 500 Mg Tab.er.24h, 500 MG PO DAILY, (Reported) Ondansetron 8 Mg Tab.rapdis, 8 MG PO Q6H PRN for NAUSEA/VOMITING-1ST LINE, #10 Ref 0 Prescribed by: LAYNE JIMÉNEZ on 11/04/16 1205 Risperidone 4 Mg Tablet, #30 (Reported) Sumatriptan Succinate 50 Mg Tablet, #9 (Reported) Tizanidine HCl 4 Mg Tablet, #90 (Reported) Zolpidem Tartrate 10 Mg Tablet, #30 (Reported) Constitutional: no symptoms reported Eyes: Denies Blurred Vision, Denies Decreased Acuity, Photophobia, Vision Changes (scotomas) Ears, Nose, Mouth, Throat: no symptoms reported Respiratory: no symptoms reported Cardiovascular: no symptoms reported Gastrointestinal: see HPI, No abdominal pain, No constipation, No diarrhea, loss of appetite, nausea, vomiting Genitourinary: no symptoms reported Musculoskeletal: no symptoms reported Skin: no symptoms reported Psychiatric/Neurological: See HPI, Headache, Denies Numbness, Denies Paresthesia, Denies Seizure, Denies Tingling, Denies Weakness All Other Systems Reviewed Negative Unless Noted: Yes (Negative excepted noted.) Past [id number]-[id number]-[id number] Hx Patient Social History Alcohol Use: Rarely Uses Recreational Drug Use: Yes Drug of Choice: past marijuana use Smoking Status: Current Everyday Smoker Type Used: Cigarettes 2nd Hand Smoke Exposure: Yes Recent Foreign Travel: No Contact w/Someone Who Travel: No Recent Infectious Disease Expo: No Recent Hopitalizations: Yes (elbow surgery x 2 months ago) Immunizations Up To Date Tetanus Booster (TDap): Less than 5yrs Seasonal Allergies Seasonal Allergies: Yes Surgeries HX Surgeries: Yes Surgeries: Appendectomy, Gallbladder, Orthopedic, Tonsillectomy Respiratory Hx Respiratory Disorders: No Respiratory Disorders: Asthma, Chronic Bronchitis, Sleep Apnea Cardiovascular Hx Cardiac Disorders: Yes Cardiac Disorders: Hypertension Neurological Hx Neurological Disorders: Yes Neurological Disorders: Concussion, Headaches /Migraines Reproductive System : No Genitourinary Hx Genitourinary Disorders: No Gastrointestinal Hx Gastrointestinal Disorders: Yes Gastrointestinal Disorders: Gastroesophageal Reflux, Chronic Constipation, Irritable Bowel Musculoskeletal Hx Musculoskeletal Disorders: Yes Musculoskeletal Disorders: Arthritis, Chronic Back Pain Endocrine Hx Endocrine Disorders: No Psychosocial Hx Psychiatric Problems: Yes Behavioral Health Disorders: Anxiety, Bipolar, Depression Reviewed Nursing Assessment Reviewed/Agree w Nursing PMH: Yes Family Medical History Significant Family History: No Pertinent Family Hx Physical Exam Vital Signs Vital Sign - Last 12Hours 11/04/16 10:31 Temp 98.3 Pulse 88 Resp 18 B/P (MAP) 100/66 Pulse Ox 97 O2 Delivery Room Air Capillary Refill : Less Than 3 Seconds General Appearance: WD/WN, no apparent distress HEENT: PERRL/EOMI, normal ENT inspection, TMs normal, pharynx normal, photophobia Neck: non-tender, full range of motion, supple, normal inspection Cardiovascular: normal peripheral pulses, regular rate, rhythm, no edema, no murmur Respiratory: lungs clear, normal breath sounds, no respiratory distress, no accessory muscle use Gastrointestinal: normal bowel sounds, non tender, soft, no organomegaly Back: normal inspection Extremities: no pedal edema, normal capillary refill Psychiatric: alert, oriented x 3 Crainal Nerves: normal hearing, normal speech, PERRL Coordination/Gait: normal finger to nose, normal gait, negative Romberg's sign Motor/Sensory: no motor deficit, no sensory deficit, no pronator drift Skin: normal color, warm/dry Progress/Results/Core Measures Results/Orders My Orders Orders - LAYNE JIMÉNEZ Saline Lock/Iv-Start (11/04/16 11:23) Ketorolac Injection (Toradol Injection) (11/04/16 11:23) Ns Iv 1000 Ml (Sodium Chloride 0.9%) (11/04/16 11:23) Diphenhydramine Injection (Benadryl Inje (11/04/16 11:23) Orphenadrine Injection (Norflex Injectio (11/04/16 11:23) Ondansetron Injection (Zofran Injectio (11/04/16 11:30) Morphine Injection (Morphine Injection (11/04/16 12:16) Dexamethasone Pf Injection (Decadron Pf (11/04/16 12:16) Dexamethasone Injection (Decadron Inject (11/04/16 12:17) Iv Push Route Agent Ed (11/04/16 ) Medications Given in ED Vital Signs/I&O Vital Sign - Last 12Hours 11/04/16 11/04/16 10:31 13:04 Temp 98.3 98.0 Pulse 88 81 Resp 18 18 B/P (MAP) 100/66 Pulse Ox 97 99 O2 Delivery Room Air Blood Pressure Mean: 77 Departure Communication Progress Notes Patient was given Toradol, Benadryl, Zofran, 1 L NS, and Norflex with improvement in symptoms, the patient continues to rate pain at a 5/10. Patient given morphine 8 mg and decadron with improvement in symptoms. plan for dsch to home. Patient to continue using her Imitrex and Fioricet as prescribed by her physician. Impression Impression: Primary Impression: Migraine Disposition: 01 HOME, SELF-CARE Condition: Improved Departure-Patient Inst. Decision time for Depature: 12:03 Referrals: NO,LOCAL PHYSICIAN (PCP/Family) Primary Care Physician Patient Instructions: Migraine Headache (DC) Add. Discharge Instructions: All discharge instructions reviewed with patient and/or family. Voiced understanding. Medications as directed. Continue usual home medications. Avoid bright lights and loud noises today. Drink plenty of fluids. Follow-up with your neurologist as previously scheduled this week. Follow-up with family practitioner for recheck. Return to the emergency department for worsened symptoms or any other concerns. Scripts Ondansetron (Ondansetron Odt) 8 Mg Tab.rapdis 8 MG PO Q6H Y for NAUSEA/VOMITING-1ST LINE, #10 TAB 0 Refills Prov: LAYNE JIMÉNEZ 11/04/16 Work/School Note: Local [employer]ing, Work Release Form Date Seen in the Emergency Department: Nov 04, 2016 Return to Work: Nov 05, 2016 Restrictions: No Restrictions LAYNE JIMÉNEZ Nov 04, 2016 11:13 am
--- OUTSIDE RECORDS SUMMARY | 2016-11-04 11:16 | XMS REPORT | Clinical Summary ---
Author Author Admin, E Organization [facility] [employer] Address Unknown Phone Unavailable Allergies, Adverse Reactions, [...] breath Nocturnal hypoxia 799.02 Active Fabiola Johnson [employer] Hypoxemia Neck pain 723.1 Resolved Vishal Hui [...] encounter for closed fracture with routine healing Active Neeraj Collins MD Bronchitis, acute 466.0 Resolved Ahmet Carbajal MD Acute bronchitis Generalized anxiety disorder 300.02 Active Ahmet Carbajal MD Generalized anxiety disorder Anxiety Disorder ICD-300.00 Inactive Vishal Hui MD [...] Asthma, acute ICD-493.92 Inactive Vishal Hui MD Cellulitis and abscess of breast ICD-611.0 Inactive Ahmet Carbajal MD Bronchitis, acute ICD-466.0 Inactive Ahmet Carbajal MD Medication List Medication Instructions Start Date Stop Date Generic Name NDC Status Provider Patient Instruction CLONAZEPAM 1 MG ORAL TABS 1 twice a day and an additional 1 tablet every other day as needed for pseudoseizures or anxiety CLONAZEPAM 89673447219 Active Ahmet Carbajal MD Active HYDROCODONE-ACETAMINOPHEN 5-325 MG ORAL TABS 1 tab two times a day HYDROCODONE-ACETAMINOPHEN 00324417432 No Longer Active Ahmet Carbajal MD Active LAMICTAL 100 MG ORAL TABS 1 tab 2 times qd. LAMOTRIGINE 33486870380 Active Ahmet Carbajal MD Active PREDNISONE 20 MG TABS 2 daily for 5 days then 1 daily for 5 days PREDNISONE 60039398217 No Longer Active Ahmet Carbajal MD Active FLUTICASONE PROPIONATE 50 MCG/ACT SUSP 1 to 2 sprays each nostril daily for allergies FLUTICASONE PROPIONATE 65962925193 Active Tila Valenzuela Active GUAIFENESIN-CODEINE 100-10 MG/5ML SYRP 5ml every 4 to 6 hours as needed for cough GUAIFENESIN-CODEINE 21173382926 Active Ahmet Carbajal MD Active BENADRYL 25 MG CAP 4 po at bedtime for insomnia DIPHENHYDRAMINE HCL 13988328044 No Longer Active Ahmet Carbajal MD Active ADVAIR DISKUS 250-50 MCG/DOSE INH AEPB 1 puff twice a day for asthma FLUTICASONE-SALMETEROL 49173153260 No Longer Active Ahmet Carbajal MD Active KLONOPIN 1 MG ORAL TABS 1 tab po TID CLONAZEPAM 49381485897 No Longer Active Ahmet Carbajal MD Active ABILIFY MAINTENA 400 MG IM SUSR 400mg injection every 26 days ARIPIPRAZOLE 73709688587 No Longer Active Ahmet Carbajal MD Active HALOPERIDOL 10 MG ORAL TABS 1 tab q.d HALOPERIDOL 18677770913 Active Ahmet Carbajal MD Active ASPIRIN 325 MG ORAL TABS 1 tab q.d ASPIRIN 92191490779 Active Ahmet Carbajal MD Active TRAMADOL HCL 50 MG TABS 1/2-1 tab TID PRN TRAMADOL HCL 02412454098 No Longer Active Ahmet Carbajal MD Active BACTRIM DS 800-160 MG TABS 1 twice a day SULFAMETHOXAZOLE- TRIMETHOPRIM 74564909664 No Longer Active Ahmet Carbajal MD Active PROAIR HFA 108 (90 BASE) MCG/ACT AERS 2 puffs four times a day as needed 2015 ALBUTEROL SULFATE 91142230722 Active Ahmet Carbajal MD Active EQ NICOTINE 21 MG/24HR TRANS PT24 Apply daily to stop smoking NICOTINE 92292166397 Active Ahmet Carbajal MD Active MONISTAT 7 COMBO PACK WOODROW 100 & 2 MG-% (9GM) VAG KIT 1 applicatorful per vagina q pm x 7 MICONAZOLE NITRATE 92657067261 No Longer Active Ahmet Carbajal MD Active FLAGYL 500 MG TAB 1 tablet by mouth bid METRONIDAZOLE 34776536516 No Longer Active Ahmet Carbajal MD Active OXYCODONE HCL ER 10 MG ORAL T12A 1/2 tab by mouth every 4 hours prn OXYCODONE HCL 67043461347 No Longer Active Ahmet Carbajal MD Active METHYLPREDNISOLONE 4 MG ORAL TABS po daily METHYLPREDNISOLONE 47377269888 No Longer Active Ahmet Carbajal MD Active LEVOFLOXACIN 500 MG ORAL TABS po daily LEVOFLOXACIN 13314368253 No Longer Active Ahmet Carbajal MD Active VIIBRYD 10 MG ORAL TABS Take 1 tablet once a day VILAZODONE HCL 87580929849 No Longer Active Ahmet Carbajal MD Active TOPAMAX 50 MG ORAL TABS 1 tab twice daily TOPIRAMATE 54947218506 No Longer Active Ahmet Carbajal MD Active DICLOFENAC SODIUM 50 MG TBEC 1 tablet by mouth four times daily PRN Pain 2015 DICLOFENAC SODIUM 14664580971 No Longer Active Ahmet Carbajal MD Active ADZENYS XR-ODT 6.3 MG ORAL TBED 1 tab po daily for ADHD AMPHETAMINE 80767476989 No Longer Active Ahmet Carbajal MD Active CHANTIX 1 MG TABS 1 twice a day to help quit smoking VARENICLINE TARTRATE 76351687478 No Longer Active Dipika Burgos MD Active CHANTIX STARTING MONTH EARNEST 0.5 MG X 11 & 1 MG X 42 TABS take as directed 2015 VARENICLINE TARTRATE 46085617490 No Longer Active Dipika Burgos MD Active TESSALON PERLES 100 MG CAP 1 to 2 tablets by mouth 3 times daily as needed for cough BENZONATATE 45707817773 No Longer Active 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 APRN Active IMITREX 50 MG ORAL TABS 0.5 po x 1 PRN Headache. May repeat dose x 1 in 2 hours if needed SUMATRIPTAN SUCCINATE 05139050658 Active Ahmet Carbajal MD Active HYDROCODONE-ACETAMINOPHEN 5-325 MG TABS 1 to 2 four times a day as needed for pain use until can be seen by specialist HYDROCODONE- ACETAMINOPHEN 93273668753 No Longer Active Vishal Hui MD Active PROAIR HFA 108 (90 BASE) MCG/ACT AERS 2 puffs four times a day as needed 2015 ALBUTEROL SULFATE 24667642938 No Longer Active Vishal Hui MD Active PREDNISONE 20 MG TABS 2 daily for 5 days then 1 daily for 5 days PREDNISONE 31969657928 No Longer Active Vishal Hui MD Active ZITHROMAX Z-EARNEST 250 MG TABS 2 today and then 1 daily for 4 days AZITHROMYCIN 53645037413 No Longer Active Vishal Hui MD Active DICLOFENAC POTASSIUM TABS Take 1 tablet twice a day (pt. is not sure of the dose.) DICLOFENAC POTASSIUM TABS 36183164179 No Longer Active Vishal Hui MD Active VERAPAMIL HCL ER 120 MG ORAL CR-TABS Take 1 tablet by mouth twice a day. VERAPAMIL HCL 94296159386 Active Vishal Hui MD Active FLAGYL 500 MG TAB 1 tablet by mouth bid METRONIDAZOLE 30834489697 No Longer Active Vishal Hui MD Active FLUTICASONE PROPIONATE 50 MCG/ACT SUSP 2 sprays each nostril daily before bed. FLUTICASONE PROPIONATE 73453495462 Active Fabiola Johnson APRN Active VALIUM 5 MG TAB Take 1-2 tablets daily DIAZEPAM 64862939753 No Longer Active Fabiola Johnson APRN Active METOPROLOL TARTRATE 25 MG ORAL TABS 1/2 tablet twice daily for heart rate and blood pressure METOPROLOL TARTRATE 88078993433 No Longer Active Fabiola Johnson APRN Active MIRALAX ORAL POWD 17GMS DAILY IN WATER POLYETHYLENE GLYCOL 3350 44784792000 Active Vishal Hui MD Active MIRALAX PACK 1 po qd PRN Constipation POLYETHYLENE GLYCOL 3350 06429809719 No Longer Active Ahmet Carbajal MD Active MINIPRESS 2 MG CAPS 4 cap po at night PRAZOSIN HCL 72715421764 No Longer Active Ahmet Carbajal MD Active PIROXICAM 20 MG CAPS 1 cap po qd PRN Pain PIROXICAM 31329133309 No Longer Active Ahmet Carbajal MD Active TRAMADOL HCL 50 MG TABS 1-2 po TID PRN Pain TRAMADOL HCL 85286910964 No Longer Active Ahmet Carbajal MD Active METOPROLOL TARTRATE 50 MG TAB 1 po bid METOPROLOL TARTRATE 14364131408 No Longer Active Ahmet Carbajal MD Active ABILIFY 15 MG ORAL TABS 1 tab daily ARIPIPRAZOLE 11921408399 No Longer Active Ahmet Carbajal MD Active PROZAC 20 MG ORAL CAPS 1 tab daily FLUOXETINE HCL 64708105775 No Longer Active Ahmet Carbajal MD Active AMBIEN 5 MG ORAL TABS 1 tab at bedtime ZOLPIDEM TARTRATE 25514273129 No Longer Active Ahmet Carbajal MD Active PREDNISONE 20 MG TAB 2 tabs daily for 4 days, 1 tab daily for 4 days, 1/2 tab daily for 4 days PREDNISONE 09788001398 No Longer Active Ahmet Carbajal MD Active KEFLEX 500 MG CAP 1 po TID x 10 days CEPHALEXIN 84876472704 No Longer Active Vishal Hui MD Active SAPHRIS 5 MG SUBL 1 po bid ASENAPINE MALEATE 44531290626 No Longer Active Jillina Frazell [employer] Active LATUDA 80 MG TABS Take one by mouth daily LURASIDONE HCL 42321877818 No Longer Active Jillina Frazell [employer] Active AMLODIPINE BESYLATE 5 MG TABS 1 tablet by mouth daily AMLODIPINE BESYLATE 84264272314 No Longer Active Jillina Frazell [employer] Active AMITRIPTYLINE HCL 100 MG TAB one at hs AMITRIPTYLINE HCL 62018286837 No Longer Active Vishal Hui MD Active TRAZODONE HCL 100 MG TAB take 1 at bedtime TRAZODONE HCL 64053044141 No Longer Active Vishal Hui MD Active VYVANSE 40 MG CAPS 1 daily, LISDEXAMFETAMINE DIMESYLATE 72449656786 No Longer Active Vishal Hui MD Active IBUPROFEN 600 MG TAB 1 po TID PRN IBUPROFEN 52276989909 No Longer Active Vishal Hui MD Active PROZAC 20 MG CAP Take one by mouth daily FLUOXETINE HCL 12075714947 No Longer Active Vishal Hui MD Active ZOFRAN 4 MG TABS 1 po q6hr PRN Nausea ONDANSETRON HCL Active Vishal Hui MD Active BACTRIM DS 800-160 MG TABS 1 pill by mouth twice daily SULFAMETHOXAZOLE-TRIMETHOPRIM 81528495091 No Longer Active Sahara Rodriguez MD PhD Active DIFLUCAN 150 MG TAB 1 tablet by mouth daily FLUCONAZOLE 58158185827 No Longer Active Vishal Hui MD Active TIZANIDINE HCL 4 MG TABS 1 po q6hr PRN Muscle Spasm/Back Pain TIZANIDINE HCL 29282870907 Active Vishal Hui MD Active CLINDAMYCIN HCL 150 MG CAPS 1 four times a day CLINDAMYCIN HCL 84958000098 No Longer Active Neeraj Collins MD Active KEFLEX 500 MG ORAL CAPS 1 cap QID by mouth CEPHALEXIN 99910889425 No Longer Active Neeraj Collins MD Active DIFLUCAN 150 MG TABS 1 pill every other day x 2 doses FLUCONAZOLE 41000460109 No Longer Active Sahara Rodriguez MD PhD Active MELATONIN 3 MG CAPS 2 po q hs MELATONIN 24705457586 No Longer Active Sahara Rodriguez MD PhD Active MULTIVITAMINS CAPS Take one by mouth daily MULTIPLE VITAMIN 89997566852 No Longer Active Sahara Rodriguez MD PhD Active BACTRIM DS 800-160 MG TAB 1 tab by mouth twice daily TRIMETHOPRIM-SULFAMETHOXAZOLE 14590343680 No Longer Active Sahara Rodriguez MD PhD Active [employer] PROBIOTIC ORAL CHEW 2 daily po PROBIOTIC PRODUCT 95432924960 No Longer Active Sahara Rodriguez MD PhD Active BACTRIM DS 800-160 MG TABS 1 po BID x 7 days SULFAMETHOXAZOLE-TRIMETHOPRIM 58437335644 No Longer Active Vishal Hui MD Active CHANTIX STARTING MONTH EARNEST 0.5 MG X 11 & 1 MG X 42 TABS 0.5mg daily for 3 days , then 0.5mg BID for 4 days, then 1mg BID VARENICLINE TARTRATE 08644395631 No Longer Active TAMARA Gray Active VERAPAMIL HCL CR 120 MG TAB CR 1 po bid VERAPAMIL HCL 58561052863 No Longer Active Vishal Hui MD Active METOPROLOL SUCCINATE 50 MG TB24 1 tablet by mouth daily METOPROLOL SUCCINATE 80424266764 No Longer Active Vishal Hui MD Active SAPHRIS 10 MG SUBL 1 tab po bid ASENAPINE MALEATE 78628058731 No Longer Active Vishal Hui MD Active LISINOPRIL 20 MG TABS 1 tab po qd LISINOPRIL 25651956838 No Longer Active Vishal Hui MD Active LATUDA 20 MG TABS Take one by mouth daily LURASIDONE HCL 17458664719 No Longer Active Vishal Hui MD Active TRAZODONE HCL 50 MG TABS 1/2 tab po qd prn for anxiety TRAZODONE HCL 72934440383 No Longer Active Vishal Hui MD Active OMEPRAZOLE 20 MG TBEC 1 po q a.m. 30min prior to first food intake OMEPRAZOLE 32551072591 Active Vishal Hui MD Active RANITIDINE HCL 150 MG CAPS 1 twice a day RANITIDINE HCL 05853526774 Active Jioral Martínez APRN Active LINZESS 290 MCG CAPS Take one by mouth daily LINACLOTIDE 63404423726 No Longer Active Vishal Hui MD Active SAPHRIS 5 MG SUBL 1 tab po qd ASENAPINE MALEATE 91650499648 No Longer Active Vishal Hui MD Active ZALEPLON 10 MG CAPS 1 cap po every other night ZALEPLON 67664000013 No Longer Active Vishal Hui MD Active LYRICA 50 MG CAPS 1 tab po TID PREGABALIN 20784564033 No Longer Active Vishal Hui MD Active LORATADINE 10 MG TABS 1 tab po qd LORATADINE 80281708683 No Longer Active Vishal Hui MD Active VERAPAMIL HCL ER 180 MG CR-TABS 1 tab po bid VERAPAMIL HCL 86833766427 No Longer Active Vishal Hui MD Active MIRALAX POWD 1 capfull once daily POLYETHYLENE GLYCOL 3350 15040126834 No Longer Active Vishal Hui MD Active PREDNISONE 20 MG TABS 1 tab po qd PREDNISONE 72012908486 No Longer Active Renzo Thornton DO Active LEVOFLOXACIN 500 MG TABS 1 tab po qd LEVOFLOXACIN 82430166557 No Longer Active Renzo Thornton DO Active BUSPIRONE HCL 15 MG TABS 1 tab po TID BUSPIRONE HCL 91193159816 No Longer Active Renzo Thornton DO Active BENZTROPINE MESYLATE 1 MG TABS 1 tab po qd BENZTROPINE MESYLATE 21218800106 No Longer Active Renzo Thornton DO Active ATENOLOL 25 MG TABS 1 tab po qd ATENOLOL 36549526976 No Longer Active Renzo Thornton DO Active ESCITALOPRAM OXALATE 20 MG TABS 1 tab po qd ESCITALOPRAM OXALATE 36594149965 No Longer Active Renzo Thornton DO Active ADVAIR DISKUS 250-50 MCG/DOSE AEPB 1 puff BID FLUTICASONE-SALMETEROL 93484617062 No Longer Active Renzo Thornton DO Active PREDNISONE 20 MG TAB 2 tabs daily for 3 days, 1 tab daily for 3 days, 1/2 tab daily for 2 days PREDNISONE 36799031019 No Longer Active Vishal Hui MD Active CEFDINIR 300 MG CAPS by mouth twice a day CEFDINIR 47335422556 No Longer Active Vishal Hui MD Active LANSOPRAZOLE 30 MG CPDR 1 cap po qd LANSOPRAZOLE 60963256128 No Longer Active Vishal Hui MD Active BACLOFEN 20 MG TABS 1 tab po tid BACLOFEN 20140668850 No Longer Active Vishal Hui MD Active ADVAIR DISKUS 250-50 MCG/DOSE AEPB 1 puff BID ADVAIR DISKUS 250-50 MCG/DOSE AEPB FLUTICASONE-SALMETEROL Inactive ESCITALOPRAM OXALATE 20 MG TABS 1 tab po qd ESCITALOPRAM OXALATE 20 MG TABS 747436 ESCITALOPRAM OXALATE Inactive ATENOLOL 25 MG TABS 1 tab po qd ATENOLOL 25 MG TABS 215283 ATENOLOL Inactive BENZTROPINE MESYLATE 1 MG TABS 1 tab po qd BENZTROPINE MESYLATE 1 MG TABS 981362 BENZTROPINE MESYLATE Inactive BUSPIRONE HCL 15 MG TABS 1 tab po TID BUSPIRONE HCL 15 MG TABS 145936 BUSPIRONE HCL Inactive LEVOFLOXACIN 500 MG TABS 1 tab po qd LEVOFLOXACIN 500 MG TABS 847164 LEVOFLOXACIN Inactive PREDNISONE 20 MG TABS 1 tab po qd PREDNISONE 20 MG TABS 470391 PREDNISONE Inactive MIRALAX POWD 1 capfull once daily MIRALAX POWD 975338 POLYETHYLENE GLYCOL 3350 Inactive VERAPAMIL HCL ER 180 MG CR-TABS 1 tab po bid VERAPAMIL HCL ER 180 MG CR-TABS VERAPAMIL HCL Inactive LORATADINE 10 MG TABS 1 tab po qd LORATADINE 10 MG TABS 441457 LORATADINE Inactive LYRICA 50 MG CAPS 1 tab po TID LYRICA 50 MG CAPS PREGABALIN Inactive ZALEPLON 10 MG CAPS 1 cap po every other night ZALEPLON 10 MG CAPS 494465 ZALEPLON Inactive SAPHRIS 5 MG SUBL 1 tab po qd SAPHRIS 5 MG SUBL ASENAPINE MALEATE Inactive TRAZODONE HCL 50 MG TABS 1/2 tab po qd prn for anxiety TRAZODONE HCL 50 MG TABS 396669 TRAZODONE HCL Inactive LATUDA 20 MG TABS Take one by mouth daily LATUDA 20 MG TABS LURASIDONE HCL Inactive LISINOPRIL 20 MG TABS 1 tab po qd LISINOPRIL 20 MG TABS 719079 LISINOPRIL Inactive SAPHRIS 10 MG SUBL 1 [...] twice daily BACTRIM DS 800-160 MG TAB 024995 TRIMETHOPRIM-SULFAMETHOXAZOLE Inactive MULTIVITAMINS CAPS Take one by mouth daily MULTIVITAMINS CAPS MULTIPLE VITAMIN Inactive MELATONIN 3 MG CAPS 2 po q hs MELATONIN 3 MG CAPS 992324 MELATONIN Inactive KEFLEX 500 MG ORAL CAPS 1 cap QID by mouth KEFLEX 500 MG ORAL CAPS 916112 CEPHALEXIN Inactive CLINDAMYCIN HCL 150 MG CAPS 1 four times a day CLINDAMYCIN HCL 150 MG CAPS 19740326 CLINDAMYCIN HCL Inactive DIFLUCAN 150 MG TAB 1 tablet by mouth daily DIFLUCAN 150 MG TAB 760654 FLUCONAZOLE Inactive PROZAC 20 MG CAP Take one by mouth daily PROZAC 20 MG CAP 585504 FLUOXETINE HCL Inactive IBUPROFEN 600 MG TAB 1 po TID PRN IBUPROFEN 600 MG TAB 151949 IBUPROFEN Inactive VYVANSE 40 MG CAPS 1 daily, VYVANSE 40 MG CAPS LISDEXAMFETAMINE DIMESYLATE Inactive TRAZODONE HCL 100 MG TAB take 1 at bedtime TRAZODONE HCL 100 MG TAB 763240 TRAZODONE HCL Inactive AMITRIPTYLINE HCL 100 MG TAB one at hs AMITRIPTYLINE HCL 100 MG TAB 203340 AMITRIPTYLINE HCL Inactive AMLODIPINE BESYLATE 5 MG TABS 1 tablet by mouth daily AMLODIPINE BESYLATE 5 MG TABS 309349 AMLODIPINE BESYLATE Inactive LATUDA 80 MG TABS Take one by mouth daily LATUDA 80 MG TABS LURASIDONE HCL Inactive SAPHRIS 5 MG SUBL 1 po bid SAPHRIS 5 MG SUBL ASENAPINE MALEATE Inactive PREDNISONE 20 MG TAB 2 tabs daily for 4 days, 1 tab daily for 4 days, 1/2 tab daily for 4 days PREDNISONE 20 MG TAB 269179 PREDNISONE Inactive AMBIEN 5 MG ORAL TABS 1 tab at bedtime AMBIEN 5 MG ORAL TABS 867874 ZOLPIDEM TARTRATE Inactive PROZAC 20 MG ORAL CAPS 1 tab daily PROZAC 20 MG ORAL CAPS 538791 FLUOXETINE HCL Inactive ABILIFY 15 MG ORAL TABS 1 tab daily ABILIFY 15 MG ORAL TABS 565994 ARIPIPRAZOLE Inactive METOPROLOL TARTRATE 50 MG TAB 1 po bid METOPROLOL TARTRATE 50 MG TAB 969807 METOPROLOL TARTRATE Inactive TRAMADOL HCL 50 MG TABS 1-2 po TID PRN Pain TRAMADOL HCL 50 MG TABS 133001 TRAMADOL HCL Inactive PIROXICAM 20 MG CAPS 1 cap po qd PRN Pain PIROXICAM 20 MG CAPS 134842 PIROXICAM Inactive MINIPRESS 2 MG CAPS 4 cap po at night MINIPRESS 2 MG CAPS 732811 PRAZOSIN HCL Inactive MIRALAX PACK 1 po qd PRN Constipation MIRALAX PACK 416739 POLYETHYLENE GLYCOL 3350 Inactive METOPROLOL TARTRATE 25 MG ORAL TABS 1/2 tablet twice daily for heart rate and blood pressure METOPROLOL TARTRATE 25 MG ORAL TABS 333241 METOPROLOL TARTRATE Inactive VALIUM 5 MG TAB Take 1-2 tablets daily VALIUM 5 MG TAB 206617 DIAZEPAM Inactive FLAGYL 500 MG TAB 1 tablet by mouth bid FLAGYL 500 MG TAB 662512 METRONIDAZOLE Inactive DICLOFENAC POTASSIUM TABS Take 1 tablet twice a day (pt. is not sure of the dose.) DICLOFENAC POTASSIUM TABS DICLOFENAC POTASSIUM TABS Inactive ZITHROMAX Z-EARNEST 250 MG TABS 2 today and then 1 daily for 4 days ZITHROMAX Z-EARNEST 250 MG TABS 0226419 AZITHROMYCIN Inactive PREDNISONE 20 MG TABS 2 daily for 5 days then 1 daily for 5 days PREDNISONE 20 MG TABS 685990 PREDNISONE Inactive PROAIR HFA 108 (90 BASE) MCG/ACT AERS 2 puffs four times a day as needed 2015 PROAIR HFA 108 (90 BASE) MCG/ACT AERS ALBUTEROL SULFATE Inactive HYDROCODONE-ACETAMINOPHEN 5-325 MG TABS 1 to 2 four times a day as needed for pain use until can be seen by specialist HYDROCODONE- ACETAMINOPHEN 5-325 MG TABS 088740 HYDROCODONE-ACETAMINOPHEN Inactive TESSALON PERLES 100 MG CAP 1 to 2 tablets by mouth 3 times daily as needed for cough TESSALON PERLES 100 MG CAP 164744 BENZONATATE Inactive CHANTIX STARTING MONTH EARNEST 0.5 [...] Pain 2015 DICLOFENAC SODIUM 50 MG TBEC 777001 DICLOFENAC SODIUM Inactive TOPAMAX 50 MG ORAL TABS 1 tab twice daily TOPAMAX 50 MG ORAL TABS 884646 TOPIRAMATE Inactive VIIBRYD 10 MG ORAL TABS Take 1 tablet once a day VIIBRYD 10 MG ORAL TABS VILAZODONE HCL Inactive LEVOFLOXACIN 500 MG ORAL TABS po daily LEVOFLOXACIN 500 MG ORAL TABS 257212 LEVOFLOXACIN Inactive METHYLPREDNISOLONE 4 MG ORAL TABS po daily METHYLPREDNISOLONE 4 MG ORAL TABS 063231 METHYLPREDNISOLONE Inactive OXYCODONE HCL ER 10 MG ORAL T12A 1/2 tab by mouth every 4 hours prn OXYCODONE HCL ER 10 MG ORAL T12A OXYCODONE HCL Inactive FLAGYL 500 MG TAB 1 tablet by mouth bid FLAGYL 500 MG TAB 461202 METRONIDAZOLE Inactive MONISTAT 7 COMBO PACK WOODROW 100 & 2 MG-% (9GM) VAG KIT 1 applicatorful per vagina q pm x 7 MONISTAT 7 COMBO PACK WOODROW 100 & 2 MG-% (9GM) VAG KIT MICONAZOLE NITRATE Inactive BACTRIM DS 800-160 MG TABS 1 twice a day BACTRIM DS 800-160 MG TABS 695526 SULFAMETHOXAZOLE-TRIMETHOPRIM Inactive TRAMADOL HCL 50 MG TABS 1/2-1 tab TID PRN TRAMADOL HCL 50 MG TABS 984934 TRAMADOL HCL Inactive ABILIFY MAINTENA 400 MG IM SUSR 400mg injection every 26 days ABILIFY MAINTENA 400 MG IM SUSR ARIPIPRAZOLE Inactive KLONOPIN 1 MG ORAL TABS 1 tab po TID KLONOPIN 1 MG ORAL TABS 104287 CLONAZEPAM Inactive ADVAIR DISKUS 250-50 MCG/DOSE INH AEPB 1 puff twice a day for asthma ADVAIR DISKUS 250-50 MCG/DOSE INH AEPB FLUTICASONE- SALMETEROL Inactive BENADRYL 25 MG CAP 4 po at bedtime for insomnia BENADRYL 25 MG CAP DIPHENHYDRAMINE HCL Inactive PREDNISONE 20 MG TABS 2 daily for 5 days then 1 daily for 5 days PREDNISONE 20 MG TABS 426085 PREDNISONE Inactive HYDROCODONE-ACETAMINOPHEN 5-325 MG ORAL TABS 1 tab two times a day HYDROCODONE-ACETAMINOPHEN 5-325 MG ORAL TABS 311219 HYDROCODONE-ACETAMINOPHEN Inactive CEFDINIR 300 MG CAPS by mouth twice a day CEFDINIR 300 MG CAPS 286248 CEFDINIR Inactive PREDNISONE 20 MG TAB 2 tabs daily for 3 days, 1 tab daily for 3 days, 1/2 tab daily for 2 days PREDNISONE 20 MG TAB 360945 PREDNISONE Inactive BACTRIM DS 800-160 MG TABS 1 po BID x 7 days BACTRIM DS 800-160 MG TABS 19820521 SULFAMETHOXAZOLE-TRIMETHOPRIM Inactive DIFLUCAN 150 MG TABS 1 pill every other day x 2 doses DIFLUCAN 150 MG TABS 241265 FLUCONAZOLE Inactive BACTRIM DS 800-160 MG TABS 1 pill by mouth twice daily BACTRIM DS 800-160 MG TABS 629481 SULFAMETHOXAZOLE-TRIMETHOPRIM Inactive KEFLEX 500 MG CAP 1 po TID x 10 days KEFLEX 500 MG CAP 441960 CEPHALEXIN Inactive Advance Directives Directive Description Start [...] Name Value Unit Range Description Lab Report: CBC, Thyroid Stimulating Hormone (L) [...] 369 10^3/MM^3 10*3/mm3 142-424 Lab Report: Chlamydia/GC [id number] - Lab chlamydia DNA probe NOT DETECTED NOT DETECTED Lab Report: Chlamydia/GC [id number] - Microbiology Neisseria gonorrhoeae DNA probe NOT DETECTED NOT DETECTED Lab Report: Comp. Metabolic Panel - Chemistry sodium, serum 142 mmol/L 362-072 0076/06/08 carbon dioxide, venous blood 27.6 mmol/L 21.0-32.0 potassium, serum 4.0 mmol/L 3.5-5.2 chloride, serum 105 mmol/L 98-107 blood glucose 95 mg/dL 65-110 urea nitrogen, blood 8 mg/dL 7-18 creatinine, serum 0.75 mg/dL 0.55-1.30 alanine aminotransferase (SGPT), serum 49 U/L -78 aspartate aminotransferase (SGOT), serum 28 U/L 15-37 calcium, serum 9.4 mg/dL 8.5-10.1 bilirubin, serum, total 0.30 mg/dL 0.00-1.00 sodium, serum 140 mmol/L 236-728 3939/08/08 carbon dioxide, venous blood 33.7 mmol/L 21.0-32.0 [...] mg/dL Encounters Code Encounter Date Provider Facility CPT-67180 Level 3 Est. Patient 11:47:37 MINERALOGY PROFESSOR Ahmet Carbajal MD [facility] CPT-17468 Level 3 Est. Patient 10:40:11 MINERALOGY PROFESSOR Ahmet Carbajal MD [facility] CPT-77216 Level 3 Est. Patient 15:07:06 MINERALOGY PROFESSOR Neeraj Collins MD [facility] CPT-83059 Level 4 Est. Patient 14:45:00 MINERALOGY PROFESSOR Ahmet Carbajal MD [facility] CPT-32316 Level 3 Est. Patient 13:59:59 CDT 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 [facility] CPT-48552 Level 3 Est. Patient 18:18:53 CDT Neeraj Collins MD [facility] CPT-67603 Level 3 Est. Patient 15:50:44 CDT Vishal Hui MD [facility] CPT-47923 Level 3 Est. Patient 11:36:17 CDT Ahmet Carbajal MD [facility] CPT-41435 Level 3 Est. Patient 13:29:16 CDT Vishal Hui MD [facility] CPT-88620 Level 3 Est. Patient 14:27:52 CDT Neeraj Collins MD [facility] CPT-72068 Level 3 Est. Patient 08:56:03 CDT 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 [facility] CPT-86818 Level 4 Est. Patient 12:11:48 CDT Fabiola Johnson [facility] CPT-84469 Level 3 New Patient 16:53:37 CDT Albert Caldera MD [facility] CPT-73474 Level 3 Est. Patient 11:25:49 CDT Renzo Thornton DO [facility] CPT-90827 Level 3 Est. Patient 15:22:01 CDT Ahmet Carbajal MD [facility] CPT-40565 Level 4 Est. Patient 09:00:51 MINERALOGY PROFESSOR Vishal Hui MD [facility] CPT-10819 Level 3 Est. Patient 11:37:33 MINERALOGY PROFESSOR Vishal Hui MD [facility] CPT-24460 Level 3 Est. Patient 08:41:09 MINERALOGY PROFESSOR Vishal Hui MD [facility] CPT-63151 Level 4 Est. Patient 10:19:35 MINERALOGY PROFESSOR Vishal Hui MD [facility] CPT-34852 Level 3 Est. Patient 13:35:45 CDT Vishal Hui MD [facility] CPT-32046 Level 4 Est. Patient 10:08:37 CDT Vishal Hui MD [facility] CPT-71618 Level 3 Est. Patient 11:22:10 CDT Vishal Hui MD [facility] CPT-10638 Level 3 Est. Patient 11:03:32 CDT Sahara Rodriguez MD [facility]-26735 Level 3 Est. Patient 09:41:35 CDT Vishal Hui MD [facility] CPT-64681 Level 3 Est. Patient 12:00:41 CDT Neeraj Collins MD [facility] CPT-90751 Level 3 Est. Patient 09:16:24 CDT Vishal Hui MD [facility] CPT-[id number] Level 4 Est. Patient 13:59:09 CDT Neeraj Collins MD [facility] CPT-40673 Level 3 Est. Patient 15:19:43 CDT Renzo Thornton DO [facility] CPT-[id number] Level 3 Est. Patient 18:10:26 CDT Sahara Rodriguez MD [facility]-[id number] Level 3 Est. Patient 14:49:50 CDT Vishal Hui MD [facility] CPT-15169 Level 4 Est. Patient 18:41:46 CDT Neeraj Collins MD [facility]-97884 Level 4 Est. Patient 09:18:38 MINERALOGY PROFESSOR Vishal Hiu MD [facility] CPT-65597 Level 3 Est. Patient 14:43:55 MINERALOGY PROFESSOR Vishal Hui MD [facility] CPT-68728 Level 3 Est. Patient 15:26:33 MINERALOGY PROFESSOR Sahara Rodriguez MD [facility] CPT-23707 Level 3 Est. Patient 10:32:14 MINERALOGY PROFESSOR Vishal Hui MD [facility] CPT-61257 Level 3 Est. Patient 15:12:52 MINERALOGY PROFESSOR Vishal Hui MD [facility] CPT-80841 Level 4 Est. Patient 09:19:27 CDT Vishal Hui MD [facility] CPT-31649 Level 3 Est. Patient 15:53:00 CDT Renzo Thornton [facility] CPT-11541 Level 3 Est. Patient 15:50:30 CDT Renzo Thornton [facility] CPT-53868 Level 3 Est. Patient 16:55:24 CDT Vishal Hui MD [facility] Procedures Code Procedure Name Date Entry Date Standard Description CPT-G0439 [facility] Annual Wellness Exam 09:30:58 MINERALOGY PROFESSOR CPT-64948 TSH - LAB USE ONLY 08:50:26 MINERALOGY PROFESSOR CPT-55844 CBC - LAB USE ONLY 08:50:26 MINERALOGY PROFESSOR CPT-64012 Venipuncture Draw Fee 08:50:26 MINERALOGY PROFESSOR CPT-50005 Abx/Therapy Injection 17:34:30 MINERALOGY PROFESSOR CPT-72771 Nexplanon Removal with Reinsertion 14:09:32 CDT CPT-J7307 Nexplanon (Implant) 14:09:32 CDT CPT-OV Office Visit 14:09:32 CDT CPT-65047 UA w micro - LAB USE ONLY 16:21:13 CDT CPT-38547 Wet Mount - LAB USE ONLY 16:21:13 CDT CPT-23403 First Vx - Ix admin for Medicare patients 14:37:47 CDT CPT-36760 Fluzone Preservative Free Intramuscular Suspension 14:37 :47 CDT CPT-54218 Abx/Therapy Injection 13:54:22 CDT CPT-27432 Abx/Therapy Injection 08:47:09 CDT CPT-84224 Abx/Therapy Injection 13:29:56 CDT CPT-59556 Abx/Therapy Injection 08:36:16 CDT CPT-19504 Wet Mount - LAB USE ONLY 17:44:58 CDT CPT-53582 UA w micro - LAB USE ONLY 17:44:58 CDT CPT-86994 CMP - LAB USE ONLY 17:44:58 CDT CPT-60128 Venipuncture Draw Fee 17:44:58 CDT CPT-25255 Cervical Min 4V - XRAY USE ONLY 09:01:40 CDT CPT-12221 Chest 2V Frontal and Lat - XRAY USE ONLY 11:06:31 CDT CPT-11628 EKG Trac and Interp - XRAY USE ONLY 11:31:43 CDT 08/26 CPT-J3420 Vitamin B12 1000mcg (Cyanocobalamin) 08:10:26 MINERALOGY PROFESSOR 04/12 CPT-68893 Abx/Therapy Injection 08:10:26 MINERALOGY PROFESSOR CPT-G0438 Initial Annual Wellness Exam 19:01:01 MINERALOGY PROFESSOR CPT-J3420 Vitamin B12 1000mcg (Cyanocobalamin) 16:57:46 CDT 08/14 CPT-21113 Recombivax HB Injection Suspension 5 MCG/0.5ML 08:37:50 MINERALOGY PROFESSOR CPT-85629 Immunization Single Admin 08:37:50 MINERALOGY PROFESSOR CPT-J3420 Vitamin B12 1000mcg (Cyanocobalamin) 08:32:16 MINERALOGY PROFESSOR 03/11 CPT-97629 Abx/Therapy Injection 08:32:16 MINERALOGY PROFESSOR CPT-58428 Chest 2V Frontal and Lat 11:46:38 MINERALOGY PROFESSOR CPT-98940 Venipuncture Draw Fee 09:12:45 MINERALOGY PROFESSOR CPT-J3420 Vitamin B12 1000mcg (Cyanocobalamin) 08:50:15 MINERALOGY PROFESSOR 02/08 CPT-96361 Abx/Therapy Injection 08:50:15 MINERALOGY PROFESSOR CPT-Cryo Cryotherapy 10:19:35 MINERALOGY PROFESSOR CPT-000 Give Appropriate Flu Vaccine 09:22:16 CDT CPT-J3420 Vitamin B12 1000mcg (Cyanocobalamin) 19:08:57 CDT 01/11 CPT-24648 Abx/Therapy Injection 19:08:57 CDT CPT-J3420 Vitamin B12 1000mcg (Cyanocobalamin) 08:19:08 CDT 12/11 CPT-33951 Abx/Therapy Injection 08:19:08 CDT CPT-J3420 Vitamin B12 1000mcg (Cyanocobalamin) 14:48:00 CDT 11/09 CPT-71976 Abx/Therapy Injection 14:47:59 CDT CPT-J3420 Vitamin B12 1000mcg (Cyanocobalamin) 08:34:04 CDT 10/09 CPT-94790 Abx/Therapy Injection 08:34:04 CDT CPT-J3420 Vitamin B12 1000mcg (Cyanocobalamin) 09:18:52 CDT 09/11 CPT-97681 Abx/Therapy Injection 09:18:52 CDT CPT-J3420 Vitamin B12 1000mcg (Cyanocobalamin) 08:35:44 CDT 09/04 CPT-69305 Abx/Therapy Injection 08:35:44 CDT CPT-64587 Immunization Single Admin 11:07:16 CDT CPT-00346 Hepatitis B adult IM 11:07:16 CDT CPT-J3420 Vitamin B12 1000mcg (Cyanocobalamin) 11:00:49 CDT 08/28 CPT-J1040 Depo Medrol 80 mg (Methyl Prednisolone Acetate) 11:00: 49 CDT CPT-31892 Abx/Therapy Injection 11:00:49 CDT CPT-J1040 Depo Medrol 80 mg (Methyl Prednisolone Acetate) 09:16: 23 CDT CPT-J3420 Vitamin B12 1000mcg (Cyanocobalamin) 08:27:05 CDT 08/20 CPT-90603 Abx/Therapy Injection 08:27:05 CDT CPT-85967 Recombivax HB Injection Suspension 5 MCG/0.5ML 10:00:41 CDT CPT-97508 Administration single or combination vaccine inc oral 10 :00:41 CDT CPT-11682 Sono transvag pelvis non OB uterus ovaries cervix 16:36: 57 CDT CPT-68608 LS spine comp w obliq 09:50:55 MINERALOGY PROFESSOR CPT-48083 Abd compl w upright 09:50:55 MINERALOGY PROFESSOR CPT-J1100 Decadron 4mg (Dexamethasone) 15:51:24 MINERALOGY PROFESSOR CPT-J1030 Depo Medrol 40 mg (Methyl Prednisolone Acetate) 15:51: 24 MINERALOGY PROFESSOR CPT-92404 Abx/Therapy Injection 15:51:24 MINERALOGY PROFESSOR CPT-J1100 Decadron 4mg (Dexamethasone) 15:26:33 MINERALOGY PROFESSOR CPT-J1030 Depo Medrol 40 mg (Methyl Prednisolone Acetate) 15:26: 33 MINERALOGY PROFESSOR CPT-33671 Sono retroperitoneal complete kidneys and bladder 17:15: 30 CDT CPT-75992 Abd compl w upright 16:09:25 CDT CPT-J1100 Decadron 8mg (Dexamethasone) 17:07:57 CDT CPT-82792 Abx/Therapy Injection 17:07:57 CDT CPT-J1100 Decadron 8mg (Dexamethasone) 16:55:24 CDT CPT-41533 Chest 2V Frontal and Lat 16:32:44 CDT
--- OUTSIDE RECORDS SUMMARY | 2016-11-04 11:18 | XMS REPORT | Clinical Summary ---
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 Hypoxemia Neck pain 723.1 Resolved Vishal Hui [...] fibula Vaginal discharge 623.5 Active 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 FE[employer] 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 Leukorrhea, not specified as infective DYSURIA 788.1 Active 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 APRN Dysuria Contraceptive management V25.09 Active Dipika Burgos MD Encounter for other general counseling and advice on contraceptive management Cellulitis and abscess of breast 611.0 Active Ahmet Carbajal MD Inflammatory disease of breast Cigarette smoker 305.1 Active Ahmet Carbajal MD Tobacco use disorder Nondisplaced transverse fracture of shaft of left fibula, subsequent encounter for closed fracture with routine healing Active Neeraj Collins MD Anxiety Disorder ICD-300.00 Inactive Vishal Hui MD Pneumonia, organism unspecified ICD-486 Inactive Vishal Hui MD Flank pain, right ICD-789.09 Inactive Vishal Hui MD G E R D ICD-530.81 Inactive Vishal Hui MD Smoker/tobacco use disorder-smoking cessation discussed ICD-305.1 Inactive Vishal Hui MD Abdominal pain ICD-789.00 Inactive Vishal Hui MD Cellulitis ICD-682.9 Inactive Vishal Hui MD Pelvic pain ICD-625.9 Inactive Visahl Hui MD Abscess, skin ICD-682.9 Inactive Vishal Hui MD Physical examination ICD-V70.0 Jim Hui MD Vaginitis ICD-616.10 Inactive Vishal Hui MD 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 Jim Hui MD Fatigue ICD-780.79 Inactive Vishal Hui [...] Generic Name NDC Status Provider Patient Instruction TRAMADOL HCL 50 MG TABS 1/2-1 tab TID PRN TRAMADOL HCL 30908990748 Active Lynda Juarezephraim PRINT CUTTER Active PROAIR HFA 108 (90 BASE) MCG/ACT AERS 2 puffs four times a day as needed 2015 ALBUTEROL SULFATE 87823455219 Active Ahmet Carbajal MD Active EQ NICOTINE 21 MG/24HR TRANS PT24 Apply daily to stop smoking NICOTINE 87386652089 Active Ahmet Carbajal MD Active BACTRIM DS 800-160 MG TABS 1 twice a day SULFAMETHOXAZOLE- TRIMETHOPRIM 34188594892 Active Ahmet Carbajal MD Active ADVAIR DISKUS 250-50 MCG/DOSE INH AEPB 1 puff twice a day for asthma FLUTICASONE-SALMETEROL 84553687349 Active Ahmet Carbajal MD Active MONISTAT 7 COMBO PACK WOODROW 100 & 2 MG-% (9GM) VAG KIT 1 applicatorful per vagina q pm x 7 MICONAZOLE NITRATE 74376286008 No Longer Active Ahmet Carbajal MD Active FLAGYL 500 MG TAB 1 tablet by mouth bid METRONIDAZOLE 28915789540 No Longer Active Ahmet Carbajal MD Active OXYCODONE HCL ER 10 MG ORAL T12A 1/2 tab by mouth every 4 hours prn OXYCODONE HCL 14686157466 No Longer Active Ahmet Carbajal MD Active METHYLPREDNISOLONE 4 MG ORAL TABS po daily METHYLPREDNISOLONE 16108759800 No Longer Active Ahmet Carbajal MD Active LEVOFLOXACIN 500 MG ORAL TABS po daily LEVOFLOXACIN 93970570384 No Longer Active Ahmet Carbajal MD Active VIIBRYD 10 MG ORAL TABS Take 1 tablet once a day VILAZODONE HCL 45324598727 No Longer Active Ahmet Carbajal MD Active TOPAMAX 50 MG ORAL TABS 1 tab twice daily TOPIRAMATE 81713115806 No Longer Active Ahmet Carbajal MD Active DICLOFENAC SODIUM 50 MG TBEC 1 tablet by mouth four times daily PRN Pain 2015 DICLOFENAC SODIUM 29899100013 No Longer Active Ahmet Carbajal MD Active ADZENYS XR-ODT 6.3 MG ORAL TBED 1 tab po daily for ADHD AMPHETAMINE 07905130470 No Longer Active Ahmet Carbajal MD Active CHANTIX 1 MG TABS 1 twice a day to help quit smoking VARENICLINE TARTRATE 32335859122 No Longer Active Dipika Burgos MD Active CHANTIX STARTING MONTH EARNEST 0.5 MG X 11 & 1 MG X 42 TABS take as directed 2015 VARENICLINE TARTRATE 77061451480 No Longer Active Dipika Burgos MD Active TESSALON PERLES 100 MG CAP 1 to 2 tablets by mouth 3 times daily as needed for cough BENZONATATE 10792511499 No Longer Active 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 May repeat dose x 1 in 2 hours if needed SUMATRIPTAN SUCCINATE 68843469637 Active Lynda Xiao PRINT CUTTER Active HYDROCODONE-ACETAMINOPHEN 5-325 MG TABS 1 to 2 four times a day as needed for pain use until can be seen by specialist HYDROCODONE- ACETAMINOPHEN 71834773699 No Longer Active Vishal Hui MD Active PROAIR HFA 108 (90 BASE) MCG/ACT AERS 2 puffs four times a day as needed 2015 ALBUTEROL SULFATE 55307291797 No Longer Active Vishal Hui MD Active PREDNISONE 20 MG TABS 2 daily for 5 days then 1 daily for 5 days PREDNISONE 74129860917 No Longer Active Vishal Hui MD Active ZITHROMAX Z-EARNEST 250 MG TABS 2 today and then 1 daily for 4 days AZITHROMYCIN 39898875100 No Longer Active Vishal Hui MD Active DICLOFENAC POTASSIUM TABS Take 1 tablet twice a day (pt. is not sure of the dose.) DICLOFENAC POTASSIUM TABS 01203321083 No Longer Active Vishal Hui MD Active VERAPAMIL HCL ER 120 MG ORAL CR-TABS Take 1 tablet by mouth twice a day. VERAPAMIL HCL 61369098115 Active Vishal Hui MD Active FLAGYL 500 MG TAB 1 tablet by mouth bid METRONIDAZOLE 41051033162 No Longer Active Vishal Hui MD Active FLUTICASONE PROPIONATE 50 MCG/ACT SUSP 2 sprays each nostril daily before bed. FLUTICASONE PROPIONATE 26502731322 Active Fabiola Johnson APRN Active BENADRYL 25 MG CAP 4 po at bedtime for insomnia DIPHENHYDRAMINE HCL 12656919829 Active Fabiola Johnson APRN Active KLONOPIN 1 MG ORAL TABS 1 tab po TID CLONAZEPAM 75568846892 Active Fabiola Johnson APRN Active VALIUM 5 MG TAB Take 1-2 tablets daily DIAZEPAM 83340279416 No Longer Active Fabiola Johnsno APRN Active METOPROLOL TARTRATE 25 MG ORAL TABS 1/2 tablet twice daily for heart rate and blood pressure METOPROLOL TARTRATE 50623158082 No Longer Active Fabiola Johnson APRN Active MIRALAX ORAL POWD 17GMS DAILY IN WATER POLYETHYLENE GLYCOL 3350 58196708239 Active Vishal Hui MD Active MIRALAX PACK 1 po qd PRN Constipation POLYETHYLENE GLYCOL 3350 73040770214 No Longer Active Ahmet Carbajal MD Active MINIPRESS 2 MG CAPS 4 cap po at night PRAZOSIN HCL 00271279511 No Longer Active Ahmet Carbajal MD Active PIROXICAM 20 MG CAPS 1 cap po qd PRN Pain PIROXICAM 30416185228 No Longer Active Ahmet Carbajal MD Active TRAMADOL HCL 50 MG TABS 1-2 po TID PRN Pain TRAMADOL HCL 72139799849 No Longer Active Ahmet Carbajal MD Active METOPROLOL TARTRATE 50 MG TAB 1 po bid METOPROLOL TARTRATE 17440304127 No Longer Active Ahmet Carbajal MD Active ABILIFY 15 MG ORAL TABS 1 tab daily ARIPIPRAZOLE 70593313175 No Longer Active Ahmet Carbajal MD Active PROZAC 20 MG ORAL CAPS 1 tab daily FLUOXETINE HCL 98755048256 No Longer Active Ahmet Carbajal MD Active AMBIEN 5 MG ORAL TABS 1 tab at bedtime ZOLPIDEM TARTRATE 19457407067 No Longer Active Ahmet Carbajal MD Active PREDNISONE 20 MG TAB 2 tabs daily for 4 days, 1 tab daily for 4 days, 1/2 tab daily for 4 days PREDNISONE 72797822309 No Longer Active Ahmet Carbajal MD Active KEFLEX 500 MG CAP 1 po TID x 10 days CEPHALEXIN 31983028271 No Longer Active Vishal Hui MD Active SAPHRIS 5 MG SUBL 1 po bid ASENAPINE MALEATE 27963152928 No Longer Active 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 APRN Active LATUDA 80 MG TABS Take one by mouth daily LURASIDONE HCL 56310471472 No Longer Active Jillina Frazelephraim 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 AMLODIPINE BESYLATE 5 MG TABS 1 tablet by mouth daily AMLODIPINE BESYLATE 27624134017 No Longer Active Jillina Fralebron 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 AMITRIPTYLINE HCL 100 MG TAB one at hs AMITRIPTYLINE HCL 10922937729 No Longer Active Vishal Hui MD Active TRAZODONE HCL 100 MG TAB take 1 at bedtime TRAZODONE HCL 88603667631 No Longer Active Vishal Hui MD Active VYVANSE 40 MG CAPS 1 daily, LISDEXAMFETAMINE DIMESYLATE 65556028922 No Longer Active Vishal Hui MD Active IBUPROFEN 600 MG TAB 1 po TID PRN IBUPROFEN 63094234836 No Longer Active Vishal Hui MD Active PROZAC 20 MG CAP Take one by mouth daily FLUOXETINE HCL 06481797280 No Longer Active Vishal Hui MD Active ZOFRAN 4 MG TABS 1 po q6hr PRN Nausea ONDANSETRON HCL Active Vishal Hui MD Active BACTRIM DS 800-160 MG TABS 1 pill by mouth twice daily SULFAMETHOXAZOLE-TRIMETHOPRIM 40955411601 No Longer Active Sahara Rodriguez MD PhD Active DIFLUCAN 150 MG TAB 1 tablet by mouth daily FLUCONAZOLE 42700709406 No Longer Active Vishal Hui MD Active TIZANIDINE HCL 4 MG TABS 1 po q6hr PRN Muscle Spasm/Back Pain TIZANIDINE HCL 70183800753 Active Vishal Hui MD Active CLINDAMYCIN HCL 150 MG CAPS 1 four times a day CLINDAMYCIN HCL 75395724879 No Longer Active Neeraj Collins MD Active KEFLEX 500 MG ORAL CAPS 1 cap QID by mouth CEPHALEXIN 66429551509 No Longer Active Neeraj Collins MD Active DIFLUCAN 150 MG TABS 1 pill every other day x 2 doses FLUCONAZOLE 32629204998 No Longer Active Sahara Rodriguez MD PhD Active MELATONIN 3 MG CAPS 2 po q hs MELATONIN 15868632335 No Longer Active Sahara Rodriguez MD PhD Active MULTIVITAMINS CAPS Take one by mouth daily MULTIPLE VITAMIN 10056220446 No Longer Active Sahara Rodriguez MD PhD Active BACTRIM DS 800-160 MG TAB 1 tab by mouth twice daily TRIMETHOPRIM-SULFAMETHOXAZOLE 23261976174 No Longer Active Sahara Rodriguez MD PhD Active [facility] PROBIOTIC ORAL CHEW 2 daily po PROBIOTIC PRODUCT 07584808210 No Longer Active Sahara Rodriguez MD PhD Active BACTRIM DS 800-160 MG TABS 1 po BID x 7 days SULFAMETHOXAZOLE-TRIMETHOPRIM 64205099486 No Longer Active Vishal Hui MD Active CHANTIX STARTING MONTH EARNEST 0.5 MG X 11 & 1 MG X 42 TABS 0.5mg daily for 3 days , then 0.5mg BID for 4 days, then 1mg BID VARENICLINE TARTRATE 29917904531 No Longer Active TAMARA Gray Active VERAPAMIL HCL CR 120 MG TAB CR 1 po bid VERAPAMIL HCL 20754750051 No Longer Active Vishal Hui MD Active METOPROLOL SUCCINATE 50 MG TB24 1 tablet by mouth daily METOPROLOL SUCCINATE 87149917092 No Longer Active Vishal Hui MD Active SAPHRIS 10 MG SUBL 1 tab po bid ASENAPINE MALEATE 49680746731 No Longer Active Vishal Hui MD Active LISINOPRIL 20 MG TABS 1 tab po qd LISINOPRIL 92797513625 No Longer Active Vishal Hui MD Active LATUDA 20 MG TABS Take one by mouth daily LURASIDONE HCL 73842424127 No Longer Active Vishal Hui MD Active TRAZODONE HCL 50 MG TABS 1/2 tab po qd prn for anxiety TRAZODONE HCL 70023422692 No Longer Active Vishal Hui MD Active OMEPRAZOLE 20 MG TBEC 1 po q a.m. 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 LINZESS 290 MCG CAPS Take one by mouth daily LINACLOTIDE 34122282595 No Longer Active Vishal Hui MD Active SAPHRIS 5 MG SUBL 1 tab po qd ASENAPINE MALEATE 46851805509 No Longer Active Vishal Hui MD Active ZALEPLON 10 MG CAPS 1 cap po every other night ZALEPLON 48274199963 No Longer Active Vishal Hui MD Active LYRICA 50 MG CAPS 1 tab po TID PREGABALIN 10254798885 No Longer Active Vishal Hui MD Active LORATADINE 10 MG TABS 1 tab po qd LORATADINE 12893769632 No Longer Active Vishal Hui MD Active VERAPAMIL HCL ER 180 MG CR-TABS 1 tab po bid VERAPAMIL HCL 03727615753 No Longer Active Vishal Hui MD Active MIRALAX POWD 1 capfull once daily POLYETHYLENE GLYCOL 3350 88880955646 No Longer Active Vishal Hui MD Active PREDNISONE 20 MG TABS 1 tab po qd PREDNISONE 77002697505 No Longer Active Renzo Thornton DO Active LEVOFLOXACIN 500 MG TABS 1 tab po qd LEVOFLOXACIN 34983616123 No Longer Active Renzo Thornton DO Active BUSPIRONE HCL 15 MG TABS 1 tab po TID BUSPIRONE HCL 45600302913 No Longer Active Renzo Thornton DO Active BENZTROPINE MESYLATE 1 MG TABS 1 tab po qd BENZTROPINE MESYLATE 01126699975 No Longer Active Renzo Thornton DO Active ATENOLOL 25 MG TABS 1 tab po qd ATENOLOL 43065590117 No Longer Active Renzo Thornton DO Active ESCITALOPRAM OXALATE 20 MG TABS 1 tab po qd ESCITALOPRAM OXALATE 42773647244 No Longer Active Renzo Thornton DO Active ADVAIR DISKUS 250-50 MCG/DOSE AEPB 1 puff BID FLUTICASONE-SALMETEROL 87256206260 No Longer Active Renzo Thornton DO Active PREDNISONE 20 MG TAB 2 tabs daily for 3 days, 1 tab daily for 3 days, 1/2 tab daily for 2 days PREDNISONE 79295332277 No Longer Active Vishal Hui MD Active CEFDINIR 300 MG CAPS by mouth twice a day CEFDINIR 53497711778 No Longer Active Vishal Hui MD Active LANSOPRAZOLE 30 MG CPDR 1 cap po qd LANSOPRAZOLE 18784064608 No Longer Active Vishal Hui MD Active BACLOFEN 20 MG TABS 1 tab po tid BACLOFEN 55368361189 No Longer Active Vishal Hui MD Active ADVAIR DISKUS 250-50 MCG/DOSE AEPB 1 puff BID ADVAIR DISKUS 250-50 MCG/DOSE AEPB FLUTICASONE-SALMETEROL Inactive ESCITALOPRAM OXALATE 20 MG TABS 1 tab po qd ESCITALOPRAM OXALATE 20 MG TABS 537923 ESCITALOPRAM OXALATE Inactive ATENOLOL 25 MG TABS 1 tab po qd ATENOLOL 25 MG TABS 253115 ATENOLOL Inactive BENZTROPINE MESYLATE 1 MG TABS 1 tab po qd BENZTROPINE MESYLATE 1 MG TABS 509308 BENZTROPINE MESYLATE Inactive BUSPIRONE HCL 15 MG TABS 1 tab po TID BUSPIRONE HCL 15 MG TABS 386152 BUSPIRONE HCL Inactive LEVOFLOXACIN 500 MG TABS 1 tab po qd LEVOFLOXACIN 500 MG TABS 242718 LEVOFLOXACIN Inactive PREDNISONE 20 MG TABS 1 tab po qd PREDNISONE 20 MG TABS 955952 PREDNISONE Inactive MIRALAX POWD 1 capfull once daily MIRALAX POWD 505218 POLYETHYLENE GLYCOL 3350 Inactive VERAPAMIL HCL ER 180 MG CR-TABS 1 tab po bid VERAPAMIL HCL ER 180 MG CR-TABS VERAPAMIL HCL Inactive LORATADINE 10 MG TABS 1 tab po qd LORATADINE 10 MG TABS 391981 LORATADINE Inactive LYRICA 50 MG CAPS 1 tab po TID LYRICA 50 MG CAPS PREGABALIN Inactive ZALEPLON 10 MG CAPS 1 cap po every other night ZALEPLON 10 MG CAPS 974362 ZALEPLON Inactive SAPHRIS 5 MG SUBL 1 tab po qd SAPHRIS 5 MG SUBL ASENAPINE MALEATE Inactive TRAZODONE HCL 50 MG TABS 1/2 tab po qd prn for anxiety TRAZODONE HCL 50 MG TABS 083680 TRAZODONE HCL Inactive LATUDA 20 MG TABS Take one by mouth daily LATUDA 20 MG TABS LURASIDONE HCL Inactive LISINOPRIL 20 MG TABS 1 tab po qd LISINOPRIL 20 MG TABS 113860 LISINOPRIL Inactive SAPHRIS 10 MG SUBL 1 [...] twice daily BACTRIM DS 800-160 MG TAB 312031 TRIMETHOPRIM-SULFAMETHOXAZOLE Inactive MULTIVITAMINS CAPS Take one by mouth daily MULTIVITAMINS CAPS MULTIPLE VITAMIN Inactive MELATONIN 3 MG CAPS 2 po q hs MELATONIN 3 MG CAPS 785951 MELATONIN Inactive KEFLEX 500 MG ORAL CAPS 1 cap QID by mouth KEFLEX 500 MG ORAL CAPS 737896 CEPHALEXIN Inactive CLINDAMYCIN HCL 150 MG CAPS 1 four times a day CLINDAMYCIN HCL 150 MG CAPS 19740326 CLINDAMYCIN HCL Inactive DIFLUCAN 150 MG TAB 1 tablet by mouth daily DIFLUCAN 150 MG TAB 851557 FLUCONAZOLE Inactive PROZAC 20 MG CAP Take one by mouth daily PROZAC 20 MG CAP 815733 FLUOXETINE HCL Inactive IBUPROFEN 600 MG TAB 1 po TID PRN IBUPROFEN 600 MG TAB 769981 IBUPROFEN Inactive VYVANSE 40 MG CAPS 1 daily, VYVANSE 40 MG CAPS LISDEXAMFETAMINE DIMESYLATE Inactive TRAZODONE HCL 100 MG TAB take 1 at bedtime TRAZODONE HCL 100 MG TAB 466697 TRAZODONE HCL Inactive AMITRIPTYLINE HCL 100 MG TAB one at hs AMITRIPTYLINE HCL 100 MG TAB 670643 AMITRIPTYLINE HCL Inactive AMLODIPINE BESYLATE 5 MG TABS 1 tablet by mouth daily AMLODIPINE BESYLATE 5 MG TABS 405286 AMLODIPINE BESYLATE Inactive LATUDA 80 MG TABS Take one by mouth daily LATUDA 80 MG TABS LURASIDONE HCL Inactive SAPHRIS 5 MG SUBL 1 po bid SAPHRIS 5 MG SUBL ASENAPINE MALEATE Inactive PREDNISONE 20 MG TAB 2 tabs daily for 4 days, 1 tab daily for 4 days, 1/2 tab daily for 4 days PREDNISONE 20 MG TAB 423354 PREDNISONE Inactive AMBIEN 5 MG ORAL TABS 1 tab at bedtime AMBIEN 5 MG ORAL TABS 600525 ZOLPIDEM TARTRATE Inactive PROZAC 20 MG ORAL CAPS 1 tab daily PROZAC 20 MG ORAL CAPS 651601 FLUOXETINE HCL Inactive ABILIFY 15 MG ORAL TABS 1 tab daily ABILIFY 15 MG ORAL TABS 406381 ARIPIPRAZOLE Inactive METOPROLOL TARTRATE 50 MG TAB 1 po bid METOPROLOL TARTRATE 50 MG TAB 692302 METOPROLOL TARTRATE Inactive TRAMADOL HCL 50 MG TABS 1-2 po TID PRN Pain TRAMADOL HCL 50 MG TABS 780230 TRAMADOL HCL Inactive PIROXICAM 20 MG CAPS 1 cap po qd PRN Pain PIROXICAM 20 MG CAPS 444692 PIROXICAM Inactive MINIPRESS 2 MG CAPS 4 cap po at night MINIPRESS 2 MG CAPS 124756 PRAZOSIN HCL Inactive MIRALAX PACK 1 po qd PRN Constipation MIRALAX PACK 561308 POLYETHYLENE GLYCOL 3350 Inactive METOPROLOL TARTRATE 25 MG ORAL TABS 1/2 tablet twice daily for heart rate and blood pressure METOPROLOL TARTRATE 25 MG ORAL TABS 739408 METOPROLOL TARTRATE Inactive VALIUM 5 MG TAB Take 1-2 tablets daily VALIUM 5 MG TAB 246997 DIAZEPAM Inactive FLAGYL 500 MG TAB 1 tablet by mouth bid FLAGYL 500 MG TAB 624318 METRONIDAZOLE Inactive DICLOFENAC POTASSIUM TABS Take 1 tablet twice a day (pt. is not sure of the dose.) DICLOFENAC POTASSIUM TABS DICLOFENAC POTASSIUM TABS Inactive ZITHROMAX Z-EARNEST 250 MG TABS 2 today and then 1 daily for 4 days ZITHROMAX Z-EARNEST 250 MG TABS 9097628 AZITHROMYCIN Inactive PREDNISONE 20 MG TABS 2 daily for 5 days then 1 daily for 5 days PREDNISONE 20 MG TABS 497078 PREDNISONE Inactive PROAIR HFA 108 (90 BASE) MCG/ACT AERS 2 puffs four times a day as needed 2015 PROAIR HFA 108 (90 BASE) MCG/ACT AERS ALBUTEROL SULFATE Inactive HYDROCODONE-ACETAMINOPHEN 5-325 MG TABS 1 to 2 four times a day as needed for pain use until can be seen by specialist HYDROCODONE- ACETAMINOPHEN 5-325 MG TABS 849839 HYDROCODONE-ACETAMINOPHEN Inactive TESSALON PERLES 100 MG CAP 1 to 2 tablets by mouth 3 times daily as needed for cough TESSALON PERLES 100 MG CAP 300596 BENZONATATE Inactive CHANTIX STARTING MONTH EARNEST 0.5 [...] Pain 2015 DICLOFENAC SODIUM 50 MG TBEC 296557 DICLOFENAC SODIUM Inactive TOPAMAX 50 MG ORAL TABS 1 tab twice daily TOPAMAX 50 MG ORAL TABS 034430 TOPIRAMATE Inactive VIIBRYD 10 MG ORAL TABS Take 1 tablet once a day VIIBRYD 10 MG ORAL TABS VILAZODONE HCL Inactive LEVOFLOXACIN 500 MG ORAL TABS po daily LEVOFLOXACIN 500 MG ORAL TABS 878809 LEVOFLOXACIN Inactive METHYLPREDNISOLONE 4 MG ORAL TABS po daily METHYLPREDNISOLONE 4 MG ORAL TABS 212909 METHYLPREDNISOLONE Inactive OXYCODONE HCL ER 10 MG ORAL T12A 1/2 tab by mouth every 4 hours prn OXYCODONE HCL ER 10 MG ORAL T12A OXYCODONE HCL Inactive FLAGYL 500 MG TAB 1 tablet by mouth bid FLAGYL 500 MG TAB 994911 METRONIDAZOLE Inactive MONISTAT 7 COMBO PACK WOODROW 100 & 2 MG-% (9GM) VAG KIT 1 applicatorful per vagina q pm x 7 MONISTAT 7 COMBO PACK WOODROW 100 & 2 MG-% (9GM) VAG KIT MICONAZOLE NITRATE Inactive CEFDINIR 300 MG CAPS by mouth twice a day CEFDINIR 300 MG CAPS 048316 CEFDINIR Inactive PREDNISONE 20 MG TAB 2 tabs daily for 3 days, 1 tab daily for 3 days, 1/2 tab daily for 2 days PREDNISONE 20 MG TAB 196472 PREDNISONE Inactive BACTRIM DS 800-160 MG TABS 1 po BID x 7 days BACTRIM DS 800-160 MG TABS 19820521 SULFAMETHOXAZOLE-TRIMETHOPRIM Inactive DIFLUCAN 150 MG TABS 1 pill every other day x 2 doses DIFLUCAN 150 MG TABS 963929 FLUCONAZOLE Inactive BACTRIM DS 800-160 MG TABS 1 pill by mouth twice daily BACTRIM DS 800-160 MG TABS 166284 SULFAMETHOXAZOLE-TRIMETHOPRIM Inactive KEFLEX 500 MG CAP 1 po TID x 10 days KEFLEX 500 MG CAP 072868 CEPHALEXIN Inactive Advance Directives Directive Description Start Date DISCUSSED WITH PATIENT -- NO DECISION MADE Vital Signs Date Name Value Unit Range Description blood pressure, diastolic - 8462-4 74 mm[Hg] [...] E&M - 3141-9 291 [lb_av] Weight Measured Diagnostic Results Date Name Value Unit Range Description Lab Report: CBC - Hematology mean corpuscular hemoglobin, RBC 31.4 pg 27.0-31.2 mean corpuscular hemoglobin concentration, RBC 33.7 G/DL % 31.8- 35.4 red blood cell distribution width 13.4 % 11.6-14.8 platelet count 394 10^3/MM^3 10*3/mm3 811-676 4315/12/22 mean corpuscular volume, RBC 93 fL 80-97 hematocrit, blood 39.0 % 36.0-46.0 hemoglobin, blood 13.1 g/dL 12.0-16.0 erythrocyte (RBC) count 4.19 10^6/MM^3 10*6/mm3 4.04-5.48 leukocyte count, blood 10.5 10^3/MM^3 10*3/mm3 4.6-10.2 leukocyte count, blood 13.8 10^3/MM^3 10*3/mm3 4.6-10.2 mean corpuscular hemoglobin concentration, RBC 33.6 G/DL % 31.8- 35.4 red blood cell distribution width 14.4 % 11.6-14.8 platelet count 390 10^3/MM^3 10*3/mm3 232-183 1684/01/11 erythrocyte (RBC) count 4.46 10^6/MM^3 10*6/mm3 4.04-5.48 hemoglobin, blood 14.0 g/dL 12.0-16.0 hematocrit, blood 41.8 % 36.0-46.0 mean corpuscular volume, RBC 94 fL 80-97 mean corpuscular hemoglobin, RBC 31.5 pg 27.0-31.2 Lab Report: Chlamydia/GC [id number] - Lab chlamydia DNA probe NOT DETECTED NOT DETECTED Lab Report: Chlamydia/GC [id number] - Microbiology Neisseria gonorrhoeae DNA probe NOT DETECTED NOT DETECTED Lab Report: Comp. Metabolic Panel - Chemistry sodium, serum 140 mmol/L 701-701 4680/08/08 carbon dioxide, venous blood 33.7 mmol/L 21.0-32.0 potassium, serum 5.0 mmol/L 3.5-5.2 chloride, serum 103 mmol/L 98-107 blood glucose 80 mg/dL 65-110 urea nitrogen, blood 13 mg/dL 7-18 creatinine, serum 0.88 mg/dL 0.55-1.30 alanine aminotransferase (SGPT), serum 54 U/L 12-78 aspartate aminotransferase (SGOT), serum 29 U/L 15-37 calcium, serum 9.7 mg/dL 8.5-10.1 bilirubin, serum, total 0.30 mg/dL 0.00-1.00 carbon dioxide, venous blood 27.6 mmol/L 21.0-32.0 potassium, serum 4.0 mmol/L 3.5-5.2 chloride, serum 105 mmol/L 98-107 blood glucose 95 mg/dL 65-110 urea nitrogen, blood 8 mg/dL 7-18 sodium, serum 139 mmol/L 641-524 7983/01/11 creatinine, serum 1.00 mg/dL 0.55-1.30 alanine aminotransferase (SGPT), serum 48 U/L 12-78 aspartate aminotransferase (SGOT), serum 17 U/L 15-37 calcium, serum 9.1 mg/dL 8.5-10.1 bilirubin, serum, total 0.40 mg/dL 0.00-1.00 carbon dioxide, venous blood 26.6 mmol/L 21.0-32.0 potassium, serum 4.1 mmol/L 3.5-5.2 chloride, serum 100 mmol/L 98-107 blood glucose 86 mg/dL 65-110 urea nitrogen, blood 16 mg/dL 7-18 sodium, serum 142 mmol/L 994-146 0221/06/08 creatinine, serum 0.75 mg/dL 0.55-1.30 alanine aminotransferase (SGPT), serum 49 U/L -78 aspartate aminotransferase (SGOT), serum 28 U/L 15-37 calcium, serum 9.4 mg/dL 8.5-10.1 bilirubin, serum, total 0.30 mg/dL 0.00-1.00 sodium, serum 139 mmol/L 902-540 4380/12/22 creatinine, serum 0.90 mg/dL 0.55-1.30 alanine aminotransferase (SGPT), serum 38 U/L -78 aspartate aminotransferase (SGOT), serum 19 U/L 15-37 calcium, serum 8.6 mg/dL 8.5-10.1 bilirubin, serum, total 0.30 mg/dL 0.00-1.00 carbon dioxide, venous blood 26.8 mmol/L 21.0-32.0 potassium, serum 4.2 mmol/L 3.5-5.2 chloride, serum 103 mmol/L 98-107 blood glucose 115 mg/dL 65-110 urea nitrogen, blood 20 mg/dL - Lab Report: UADIP W/MICRO, AUTO - Chemistry RBC, urine, dipstick Negative Negative protein, total urine random Negative mg/dL Negative RBC, urine, dipstick Negative Negative RBC, urine, dipstick Negative Negative RBC, [...] Trace Negative nitrite, urine, semiquantitative Negative Negative appearance, urine Clear Clear specific gravity, urine 1.020 1.000-1.030 pH, urine, semiquantitative 6.0 5.0-8.5 glucose, urine, semiquantitative Negative Negative glucose, urine, semiquantitative Negative Negative ketones, urine, by test strip Negative Negative bilirubin, urine Negative Negative glucose, urine, semiquantitative Negative Negative glucose, urine, semiquantitative Negative Negative urobilinogen, urine, semiquantitative (dipstick) 0.2 Normal leukocyte esterase, urine, by dipstick Negative Negative nitrite, urine, semiquantitative Negative Negative urine color Yellow Colorless;Lightyellow;Straw;Yellow appearance, urine Clear Clear specific gravity, urine 1.025 1.000-1.030 pH, urine, semiquantitative 6.0 5.0-8.5 urine color Yellow Colorless;Lightyellow;Straw;Yellow ketones, urine, by [...] 5.0-8.5 urine color Yellow Colorless;Lightyellow;Straw;Yellow appearance, urine SlCloudy Clear specific gravity, urine >=1.030 1.000-1.030 pH, urine, semiquantitative 5.5 5.0-8.5 urine color Yellow Colorless;Lightyellow;Straw;Yellow ketones, urine, by test strip Negative Negative bilirubin, urine Negative Negative Office Visit: Consult for Painful Lipoma - Chemistry cholesterol, target level 200 mg/dL triglyceride, target level 200 mg/dL HDL cholesterol, serum, target level 35 mg/dL LDL target level 100 mg/dL Encounters Code Encounter Date Provider Facility CPT-52174 Level 3 Est. Patient 15:07:06 FOUR ROLL CALENDER OPERATOR Neeraj Collins MD [facility] CPT-16701 Level 4 Est. Patient 14:45:00 FOUR ROLL CALENDER OPERATOR Ahmet Carbajal MD [facility] CPT-33919 Level 3 Est. Patient 13:59:59 CDT 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 APRN [facility] CPT-70134 Level 3 Est. Patient 18:18:53 CDT Neeraj Collins MD [facility] CPT-70142 Level 3 Est. Patient 15:50:44 CDT Vishal Hui MD [facility] CPT-32793 Level 3 Est. Patient 11:36:17 CDT Ahmet Carbajal MD [facility] CPT-20970 Level 3 Est. Patient 13:29:16 CDT Vishal Hui MD [facility] CPT-70807 Level 3 Est. Patient 14:27:52 CDT Neeraj Collins MD [facility] CPT-70941 Level 3 Est. Patient 08:56:03 CDT 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 [facility] CPT-37391 Level 4 Est. Patient 12:11:48 CDT Fabiola Johnson [facility] CPT-95586 Level 3 New Patient 16:53:37 CDT Albert Caldera MD [facility] CPT-39179 Level 3 Est. Patient 11:25:49 CDT Renzo Thornton DO [facility] CPT-25870 Level 3 Est. Patient 15:22:01 CDT Ahmet Carbajal MD [facility] CPT-94548 Level 4 Est. Patient 09:00:51 FOUR ROLL CALENDER OPERATOR Vishal Hui MD [facility] CPT-21108 Level 3 Est. Patient 11:37:33 FOUR ROLL CALENDER OPERATOR Vishal Hui MD [facility] CPT-85559 Level 3 Est. Patient 08:41:09 FOUR ROLL CALENDER OPERATOR Vishal Hui MD [facility] CPT-46505 Level 4 Est. Patient 10:19:35 FOUR ROLL CALENDER OPERATOR Vishal Hui MD [facility] CPT-64746 Level 3 Est. Patient 13:35:45 CDT Vishal Hui MD [facility] CPT-75736 Level 4 Est. Patient 10:08:37 CDT Vishal Hui MD [facility] CPT-94465 Level 3 Est. Patient 11:22:10 CDT Vishal Hui MD [facility] CPT-86540 Level 3 Est. Patient 11:03:32 CDT Sahara Rodriguez MD [facility]-86188 Level 3 Est. Patient 09:41:35 CDT Vishal Hui MD [facility] CPT-10306 Level 3 Est. Patient 12:00:41 CDT Neeraj Collins MD [facility]-47669 Level 3 Est. Patient 09:16:24 CDT Vishal Hui MD [facility]-27409 Level 4 Est. Patient 13:59:09 CDT Neeraj Collins MD [facility] CPT-18794 Level 3 Est. Patient 15:19:43 CDT Renzo Thornton DO [facility] CPT-69720 Level 3 Est. Patient 18:10:26 CDT Sahara Rodriguez MD [facility] CPT-57762 Level 3 Est. Patient 14:49:50 CDT Vishal Hui MD [facility] CPT-88103 Level 4 Est. Patient 18:41:46 CDT Neeraj Collins MD [facility] CPT-52962 Level 4 Est. Patient 09:18:38 FOUR ROLL CALENDER OPERATOR Vishal Hui MD [facility]-97954 Level 3 Est. Patient 14:43:55 FOUR ROLL CALENDER OPERATOR Vishal Hui MD [facility] CPT-47895 Level 3 Est. Patient 15:26:33 FOUR ROLL CALENDER OPERATOR Sahara Rodriguez MD [facility]-57935 Level 3 Est. Patient 10:32:14 FOUR ROLL CALENDER OPERATOR Vishal Hui MD [facility]-90100 Level 3 Est. Patient 15:12:52 FOUR ROLL CALENDER OPERATOR Vishal Hui MD [facility] CPT-51113 Level 4 Est. Patient 09:19:27 CDT Vishal Hui MD [facility] CPT-01964 Level 3 Est. Patient 15:53:00 CDT Renzo Thornton [facility] CPT-02863 Level 3 Est. Patient 15:50:30 CDT Renzo Thornton [facility] CPT-02894 Level 3 Est. Patient 16:55:24 CDT Vishal Hui MD [facility] Procedures Code Procedure Name Date Entry Date Standard Description CPT-32366 Abx/Therapy Injection 17:34:30 FOUR ROLL CALENDER OPERATOR CPT-77643 Nexplanon Removal with Reinsertion 14:09:32 CDT CPT-J7307 Nexplanon (Implant) 14:09:32 CDT CPT-OV Office Visit 14:09:32 CDT CPT-91282 UA w micro - LAB USE ONLY 16:21:13 CDT CPT-65023 Wet Mount - LAB USE ONLY 16:21:13 CDT CPT-06392 First Vx - Ix admin for Medicare patients 14:37:47 CDT CPT-70401 Fluzone Preservative Free Intramuscular Suspension 14:37 :47 CDT CPT-29292 Abx/Therapy Injection 13:54:22 CDT CPT-03941 Abx/Therapy Injection 08:47:09 CDT CPT-17332 Abx/Therapy Injection 13:29:56 CDT CPT-84949 Abx/Therapy Injection 08:36:16 CDT CPT-85848 [place] - LAB USE ONLY 17:44:58 CDT CPT-90393 UA w micro - LAB USE ONLY 17:44:58 CDT CPT-56036 CMP - LAB USE ONLY 17:44:58 CDT CPT-85593 Venipuncture Draw Fee 17:44:58 CDT CPT-61162 Cervical Min 4V - XRAY USE ONLY 09:01:40 CDT CPT-89914 Chest 2V Frontal and Lat - XRAY USE ONLY 11:06:31 CDT CPT-26868 EKG Trac and Interp - XRAY USE ONLY 11:31:43 CDT 08/26 CPT-J3420 Vitamin B12 1000mcg (Cyanocobalamin) 08:10:26 FOUR ROLL CALENDER OPERATOR 04/12 CPT-25503 Abx/Therapy Injection 08:10:26 FOUR ROLL CALENDER OPERATOR CPT-G0438 Initial Annual Wellness Exam 19:01:01 FOUR ROLL CALENDER OPERATOR CPT-J3420 Vitamin B12 1000mcg (Cyanocobalamin) 16:57:46 CDT 08/14 CPT-13327 Recombivax HB Injection Suspension 5 MCG/0.5ML 08:37:50 FOUR ROLL CALENDER OPERATOR CPT-97842 Immunization Single Admin 08:37:50 FOUR ROLL CALENDER OPERATOR CPT-J3420 Vitamin B12 1000mcg (Cyanocobalamin) 08:32:16 FOUR ROLL CALENDER OPERATOR 03/11 CPT-26945 Abx/Therapy Injection 08:32:16 FOUR ROLL CALENDER OPERATOR CPT-77063 Chest 2V Frontal and Lat 11:46:38 FOUR ROLL CALENDER OPERATOR CPT-09744 Venipuncture Draw Fee 09:12:45 FOUR ROLL CALENDER OPERATOR CPT-J3420 Vitamin B12 1000mcg (Cyanocobalamin) 08:50:15 FOUR ROLL CALENDER OPERATOR 02/08 CPT-21584 Abx/Therapy Injection 08:50:15 FOUR ROLL CALENDER OPERATOR CPT-Cryo Cryotherapy 10:19:35 FOUR ROLL CALENDER OPERATOR CPT-000 Give Appropriate Flu Vaccine 09:22:16 CDT CPT-J3420 Vitamin B12 1000mcg (Cyanocobalamin) 19:08:57 CDT 01/11 CPT-02613 Abx/Therapy Injection 19:08:57 CDT CPT-J3420 Vitamin B12 1000mcg (Cyanocobalamin) 08:19:08 CDT 12/11 CPT-80412 Abx/Therapy Injection 08:19:08 CDT CPT-J3420 Vitamin B12 1000mcg (Cyanocobalamin) 14:48:00 CDT 11/09 CPT-72552 Abx/Therapy Injection 14:47:59 CDT CPT-J3420 Vitamin B12 1000mcg (Cyanocobalamin) 08:34:04 CDT 10/09 CPT-11869 Abx/Therapy Injection 08:34:04 CDT CPT-J3420 Vitamin B12 1000mcg (Cyanocobalamin) 09:18:52 CDT 09/11 CPT-06513 Abx/Therapy Injection 09:18:52 CDT CPT-J3420 Vitamin B12 1000mcg (Cyanocobalamin) 08:35:44 CDT 09/04 CPT-44688 Abx/Therapy Injection 08:35:44 CDT CPT-17104 Immunization Single Admin 11:07:16 CDT CPT-91307 Hepatitis B adult IM 11:07:16 CDT CPT-J3420 Vitamin B12 1000mcg (Cyanocobalamin) 11:00:49 CDT 08/28 CPT-J1040 Depo Medrol 80 mg (Methyl Prednisolone Acetate) 11:00: 49 CDT CPT-38453 Abx/Therapy Injection 11:00:49 CDT CPT-J1040 Depo Medrol 80 mg (Methyl Prednisolone Acetate) 09:16: 23 CDT CPT-J3420 Vitamin B12 1000mcg (Cyanocobalamin) 08:27:05 CDT 08/20 CPT-87868 Abx/Therapy Injection 08:27:05 CDT CPT-14199 Recombivax HB Injection Suspension 5 MCG/0.5ML 10:00:41 CDT CPT-20170 Administration single or combination vaccine inc oral 10 :00:41 CDT CPT-02743 Sono transvag pelvis non OB uterus ovaries cervix 16:36: 57 CDT CPT-46635 LS spine comp w obliq 09:50:55 FOUR ROLL CALENDER OPERATOR CPT-47088 Abd compl w upright 09:50:55 FOUR ROLL CALENDER OPERATOR CPT-J1100 Decadron 4mg (Dexamethasone) 15:51:24 FOUR ROLL CALENDER OPERATOR CPT-J1030 Depo Medrol 40 mg (Methyl Prednisolone Acetate) 15:51: 24 FOUR ROLL CALENDER OPERATOR CPT-22794 Abx/Therapy Injection 15:51:24 FOUR ROLL CALENDER OPERATOR CPT-J1100 Decadron 4mg (Dexamethasone) 15:26:33 FOUR ROLL CALENDER OPERATOR CPT-J1030 Depo Medrol 40 mg (Methyl Prednisolone Acetate) 15:26: 33 FOUR ROLL CALENDER OPERATOR CPT-92913 Sono retroperitoneal complete kidneys and bladder 17:15: 30 CDT CPT-82938 Abd compl w upright 16:09:25 CDT CPT-J1100 Decadron 8mg (Dexamethasone) 17:07:57 CDT CPT-34245 Abx/Therapy Injection 17:07:57 CDT CPT-J1100 Decadron 8mg (Dexamethasone) 16:55:24 CDT CPT-20382 Chest 2V Frontal and Lat 16:32:44 CDT
--- OUTSIDE RECORDS SUMMARY | 2016-11-04 11:19 | XMS REPORT | Clinical Summary ---
Author Author Admin, E Organization [employer] Address Unknown Phone Unavailable Allergies, Adverse Reactions, [...] q6hr PRN Muscle Spasm/Back Pain TIZANIDINE HCL 47606664637 Active Vishal Hui MD Active CLINDAMYCIN HCL 150 MG CAPS 1 four times a day CLINDAMYCIN HCL 63553683614 No Longer Active Neeraj Collins MD Active KEFLEX 500 MG ORAL CAPS 1 cap QID by mouth CEPHALEXIN 61538884020 No Longer Active Neeraj Collins MD Active DIFLUCAN 150 MG TABS 1 pill every other day x 2 doses FLUCONAZOLE 32727471370 No Longer Active Sahara Rodriguez MD PhD Active MELATONIN 3 MG CAPS 2 po q hs MELATONIN 54807276002 No Longer Active Sahara Rodriguez MD PhD Active MULTIVITAMINS CAPS Take one by mouth daily MULTIPLE VITAMIN 93848475520 No Longer Active Sahara Rodriguez MD PhD Active BACTRIM DS 800-160 MG TAB 1 tab by mouth twice daily TRIMETHOPRIM-SULFAMETHOXAZOLE 73219215906 No Longer Active Sahara Rodriguez MD PhD Active [employer] PROBIOTIC ORAL CHEW 2 daily po PROBIOTIC PRODUCT 88789271469 No Longer Active Sahara Rodriguez MD PhD Active IBUPROFEN 600 MG TAB 1 po TID PRN IBUPROFEN 70102950676 Active 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 DRAG OUT MAN Active BACTRIM DS 800-160 MG TABS 1 po BID x 7 days SULFAMETHOXAZOLE-TRIMETHOPRIM 16187023175 No Longer Active Vishal Hui MD Active CHANTIX STARTING MONTH EARNEST 0.5 MG X 11 & 1 MG X 42 TABS 0.5mg daily for 3 days , then 0.5mg BID for 4 days, then 1mg BID VARENICLINE TARTRATE 33741909946 No Longer Active TAMARA Gray Active METOPROLOL TARTRATE 50 MG TAB 1 po bid METOPROLOL TARTRATE 53912713176 Active Vishal Hui MD Active TRAZODONE HCL 100 MG TAB take 1 at bedtime TRAZODONE HCL 38763757206 Active Vishal Hui MD Active AMLODIPINE BESYLATE 5 MG TABS 1 tablet by mouth daily AMLODIPINE BESYLATE 88246118572 Active Vishal Hui MD Active VERAPAMIL HCL CR 120 MG TAB CR 1 po bid VERAPAMIL HCL 94023771881 No Longer Active Vishal Hui MD Active METOPROLOL SUCCINATE 50 MG TB24 1 tablet by mouth daily METOPROLOL SUCCINATE 22803842567 No Longer Active Vishal Hui MD Active TRAMADOL HCL 50 MG TABS 1-2 po TID PRN Pain TRAMADOL HCL 77942293169 Active Vishal Hui MD Active SAPHRIS 5 MG SUBL 1 po bid ASENAPINE MALEATE 74188186830 Active Vishal Hui MD Active SAPHRIS 10 MG SUBL 1 tab po bid ASENAPINE MALEATE 16084046709 No Longer Active Vishal Hui MD Active LISINOPRIL 20 MG TABS 1 tab po qd LISINOPRIL 96507664999 No Longer Active Vishal Hui MD Active BENADRYL 25 MG CAP 2 po tid prn anxiety DIPHENHYDRAMINE HCL 04853056262 Active Vishal Hui MD Active LATUDA 80 MG TABS Take one by mouth daily LURASIDONE HCL 12173814457 Active Vishal Hui MD Active LATUDA 20 MG TABS Take one by mouth daily LURASIDONE HCL 40318999526 No Longer Active Vishal Hui MD Active TRAZODONE HCL 50 MG TABS 1/2 tab po qd prn for anxiety TRAZODONE HCL 24783063122 No Longer Active Vishal Hui MD Active PIROXICAM 20 MG CAPS 1 cap po qd PRN Pain PIROXICAM 27350058662 Active Vishal Hui MD Active OMEPRAZOLE 20 MG TBEC 1 po q a.m. 30min prior to first food intake OMEPRAZOLE 17143161445 Active Vishal Hui MD Active RANITIDINE HCL 150 MG CAPS 1 twice a day RANITIDINE HCL 79986414660 Active Vishal Hui MD Active PROZAC 20 MG CAP Take one by mouth daily FLUOXETINE HCL 12097526708 Active Vishal Hui MD Active LINZESS 290 MCG CAPS Take one by mouth daily LINACLOTIDE 67048312412 Active Vishal Hui MD Active SAPHRIS 5 MG SUBL 1 tab po qd ASENAPINE MALEATE 54975176566 No Longer Active Vishal Hui MD Active ZALEPLON 10 MG CAPS 1 cap po every other night ZALEPLON 97044891911 No Longer Active Vishal Hui MD Active LYRICA 50 MG CAPS 1 tab po TID PREGABALIN 37945228710 No Longer Active Vishal Hui MD Active LORATADINE 10 MG TABS 1 tab po qd LORATADINE 83590314332 No Longer Active Vishal Hui MD Active VERAPAMIL HCL ER 180 MG CR-TABS 1 tab po bid VERAPAMIL HCL 36451676620 No Longer Active Vishal Hui MD Active MIRALAX POWD 1 capfull once daily POLYETHYLENE GLYCOL 3350 64313307591 No Longer Active Vishal Hui MD Active PREDNISONE 20 MG TABS 1 tab po qd PREDNISONE 05911293984 No Longer Active Renzo Thornton DO Active LEVOFLOXACIN 500 MG TABS 1 tab po qd LEVOFLOXACIN 76091437104 No Longer Active Renzo Thornton DO Active BUSPIRONE HCL 15 MG TABS 1 tab po TID BUSPIRONE HCL 30923310554 No Longer Active Renzo Thornton DO Active BENZTROPINE MESYLATE 1 MG TABS 1 tab po qd BENZTROPINE MESYLATE 83559975460 No Longer Active Renzo Thornton DO Active ATENOLOL 25 MG TABS 1 tab po qd ATENOLOL 58131012718 No Longer Active Renzo Tohrnton DO Active ESCITALOPRAM OXALATE 20 MG TABS 1 tab po qd ESCITALOPRAM OXALATE 65711005247 No Longer Active Renzo Thornton DO Active ADVAIR DISKUS 250-50 MCG/DOSE AEPB 1 puff BID FLUTICASONE-SALMETEROL 28502667928 No Longer Active Renzo Thornton DO Active PREDNISONE 20 MG TAB 2 tabs daily for 3 days, 1 tab daily for 3 days, 1/2 tab daily for 2 days PREDNISONE 24692789370 No Longer Active Vishal Hui MD Active CEFDINIR 300 MG CAPS by mouth twice a day CEFDINIR 96240142853 No Longer Active Vishal Hui MD Active LANSOPRAZOLE 30 MG CPDR 1 cap po qd LANSOPRAZOLE 02994207456 No Longer Active Vishal Hui MD Active TOPAMAX 25 MG TABS 1 tab po bid TOPIRAMATE 38755179861 Active Vishal Hui MD Active MINIPRESS 2 MG CAPS 1 cap po at night PRAZOSIN HCL 63832297574 Active Vishal Hui MD Active BACLOFEN 20 MG TABS 1 tab po tid BACLOFEN 77744644733 No Longer Active Vishal Hui MD Active ADVAIR DISKUS 250-50 MCG/DOSE AEPB 1 puff BID ADVAIR DISKUS 250-50 MCG/DOSE AEPB FLUTICASONE-SALMETEROL Inactive ESCITALOPRAM OXALATE 20 MG TABS 1 tab po qd ESCITALOPRAM OXALATE 20 MG TABS 286704 ESCITALOPRAM OXALATE Inactive ATENOLOL 25 MG TABS 1 tab po qd ATENOLOL 25 MG TABS 080296 ATENOLOL Inactive BENZTROPINE MESYLATE 1 MG TABS 1 tab po qd BENZTROPINE MESYLATE 1 MG TABS 421880 BENZTROPINE MESYLATE Inactive BUSPIRONE HCL 15 MG TABS 1 tab po TID BUSPIRONE HCL 15 MG TABS 333347 BUSPIRONE HCL Inactive LEVOFLOXACIN 500 MG TABS 1 tab po qd LEVOFLOXACIN 500 MG TABS 973666 LEVOFLOXACIN Inactive PREDNISONE 20 MG TABS 1 tab po qd PREDNISONE 20 MG TABS 958114 PREDNISONE Inactive MIRALAX POWD 1 capfull once daily MIRALAX POWD 132200 POLYETHYLENE GLYCOL 3350 Inactive VERAPAMIL HCL ER 180 MG CR-TABS 1 tab po bid VERAPAMIL HCL ER 180 MG CR-TABS VERAPAMIL HCL Inactive LORATADINE 10 MG TABS 1 tab po qd LORATADINE 10 MG TABS 394381 LORATADINE Inactive LYRICA 50 MG CAPS 1 tab po TID LYRICA 50 MG CAPS PREGABALIN Inactive ZALEPLON 10 MG CAPS 1 cap po every other night ZALEPLON 10 MG CAPS 554334 ZALEPLON Inactive SAPHRIS 5 MG SUBL 1 tab po qd SAPHRIS 5 MG SUBL ASENAPINE MALEATE Inactive TRAZODONE HCL 50 MG TABS 1/2 tab po qd prn for anxiety TRAZODONE HCL 50 MG TABS 549295 TRAZODONE HCL Inactive LATUDA 20 MG TABS Take one by mouth daily LATUDA 20 MG TABS LURASIDONE HCL Inactive LISINOPRIL 20 MG TABS 1 tab po qd LISINOPRIL 20 MG TABS 338807 LISINOPRIL Inactive SAPHRIS 10 MG SUBL 1 [...] po q hs MELATONIN 3 MG CAPS 310680 MELATONIN Inactive KEFLEX 500 MG ORAL CAPS 1 cap QID by mouth KEFLEX 500 MG ORAL CAPS 742934 CEPHALEXIN Inactive CLINDAMYCIN HCL 150 MG CAPS 1 four times a day CLINDAMYCIN HCL 150 MG CAPS 414584 CLINDAMYCIN HCL Inactive CEFDINIR 300 MG CAPS by mouth twice a day CEFDINIR 300 MG CAPS 090043 CEFDINIR Inactive PREDNISONE 20 MG TAB 2 tabs daily for 3 days, 1 tab daily for 3 days, 1/2 tab daily for 2 days PREDNISONE 20 MG TAB 792713 PREDNISONE Inactive BACTRIM DS 800-160 MG TABS 1 po BID x 7 days BACTRIM DS 800-160 MG TABS SULFAMETHOXAZOLE-TRIMETHOPRIM Inactive DIFLUCAN 150 MG TABS 1 pill every other day x 2 doses DIFLUCAN 150 MG TABS 698402 FLUCONAZOLE Inactive Vital Signs Date Name Value [...] U/L Chart Maintenance: outside labs entered on flowsheet - Hematology leukocyte count, blood 8.9 10*3/mm3 hemoglobin, blood 13.2 g/dL platelet count 364 10*3/mm3 Lab Report: CBC, Comp. Metabolic Panel, Free Thyroxine (L), Thyroid Stim ... - Chemistry sodium, serum 140 mmol/L 053-210 0661/05/28 potassium, serum 4.2 mmol/L 3.5-5.2 chloride, serum [...] Panel - Chemistry sodium, serum 141 mmol/L 662-197 0082 potassium, serum 4.3 mmol/L 3.5-5.2 chloride, serum 106 mmol/L 98-107 carbon dioxide, venous blood 25.7 mmol/L 21.0-32.0 blood glucose 119 mg/dL 65-110 urea nitrogen, blood 22 mg/dL 7-18 creatinine, serum 0.90 mg/dL 0.60-1.30 alanine aminotransferase (SGPT), serum 28 U/L 12-78 aspartate aminotransferase (SGOT), serum 13 U/L 15-37 calcium, serum 8.5 mg/dL 8.5-10.1 bilirubin, serum, total 0.20 mg/dL 0.00-1.00 Lab Report: Comp. Metabolic Panel, Lipid Panel - Chemistry sodium, serum 139 mmol/L 868-744 2981/12/31 potassium, serum 4.8 mmol/L 3.5-5.2 chloride, serum 106 mmol/L 98-107 carbon dioxide, venous blood 24.3 mmol/L 21.0-32.0 blood glucose 90 mg/dL 65-110 urea nitrogen, blood 16 mg/dL 7-18 creatinine, serum 1.00 mg/dL 0.60-1.30 alanine aminotransferase (SGPT), serum 41 U/L 12-78 aspartate aminotransferase (SGOT), serum 17 U/L 15-37 calcium, serum 8.6 mg/dL 8.5-10.1 bilirubin, serum, total 0.30 mg/dL 0.00-1.00 cholesterol, serum 108 mg/dL 115-838 2462/12/31 triglyceride, serum, fasting 120 mg/dL 30-200 HDL cholesterol, serum 28 mg/dL 32-96 LDL cholesterol, serum 56 mg/dL 0-130 Lab Report: MICROALBUMIN - Chemistry albumin/creatinine ratio, urine < 30 mg/g mg/g{creat} 0-29 Lab Report: MICROALBUMIN - Lab microalbumin, urine 10 0-19 Lab Report: [place] [facility] [place] protein, total urine random Negative mg/dL Negative human chorionic gonadotropin, urine, qualitative (urine test) Negative Negative RBC, urine, dipstick Negative Negative Lab Report: [place]AD[place] W/MICRO, [place] [facility] [place] Urinalysis urobilinogen, urine, semiquantitative (dipstick) 0.2 Normal leukocyte esterase, urine, by dipstick Negative Negative nitrite, urine, semiquantitative Negative Negative glucose, urine, semiquantitative Negative Negative ketones, urine, by test strip Negative Negative bilirubin, urine Negative Negative urine color Yellow Colorless;Lightyellow;Straw;Yellow appearance, urine Clear Clear specific gravity, urine 1.025 1.000-1.030 pH, urine, semiquantitative 7.0 5.0-8.5 Lab Report: [facility] [place] IgG,IgM/53603, HEP Be Antibody/556, RUB ... - Serology rubella antibody, serum, IgG 2.88 Encounters Code Encounter Date Provider Facility [place] [address] Level 3 Est. Patient 09:16:24 CDT Vishal Hui MD [facility]21569 Level 4 Est. Patient 13:59:09 CDT Neeraj Collins MD [facility]50619 Level 3 Est. Patient 15:19:43 CDT Renzo Thornton [facility] [place][note 2]49694 Level 3 Est. Patient 18:10:26 CDT Sahara Rodriguez MD [place] 350103 Level 3 Est. Patient 14:49:50 CDT Vishal Hui MD [facility]12412 Level 4 Est. Patient 18:41:46 CDT Neeraj Collins MD [facility]65578 Level 4 Est. Patient 09:18:38 PEDIATRIC RN Vishal Hui MD [facility]-32667 Level 3 Est. Patient 14:43:55 PEDIATRIC RN Vishal Hui MD [facility]85082 Level 3 Est. Patient 15:26:33 PEDIATRIC RN Sahara Rodriguez MD PhD [facility]06611 Level 3 Est. Patient 10:32:14 PEDIATRIC RN Vishal Hui MD [facility]82347 Level 3 Est. Patient 15:12:52 PEDIATRIC RN Vishal Hui MD [facility] [place]-69159 Level 4 Est. Patient 09:19:27 CDT Vishal Hui MD [facility]59493 Level 3 Est. Patient 15:53:00 CDT Renzo Thornton DO [facility]59204 Level 3 Est. Patient 15:50:30 CDT Renzo Thornton DO [facility] CPT-96527 Level 3 Est. Patient 16:55:24 CDT Vishal Hui MD [facility] Procedures Code Procedure Name Date Entry Date Standard Description CPT-J3420 Vitamin B12 1000mcg (Cyanocobalamin) 08:35:44 CDT 09/04 CPT-35725 Abx/Therapy Injection 08:35:44 CDT CPT-33794 Immunization Single Admin 11:07:16 CDT CPT-95445 Hepatitis B adult IM 11:07:16 CDT CPT-J3420 Vitamin B12 1000mcg (Cyanocobalamin) 11:00:49 CDT 08/28 CPT-J1040 Depo Medrol 80 mg (Methyl Prednisolone Acetate) 11:00: 49 CDT CPT-59151 Abx/Therapy Injection 11:00:49 CDT CPT-J1040 Depo Medrol 80 mg (Methyl Prednisolone Acetate) 09:16: 23 CDT CPT-J3420 Vitamin B12 1000mcg (Cyanocobalamin) 08:27:05 CDT 08/20 CPT-15850 Abx/Therapy Injection 08:27:05 CDT CPT-48886 Recombivax HB Injection Suspension 5 MCG/0.5ML 10:00:41 CDT CPT-73028 Administration single or combination vaccine inc oral 10 :00:41 CDT CPT-81516 Sono transvag pelvis non OB uterus ovaries cervix 16:36: 57 CDT CPT-13751 LS spine comp w obliq 09:50:55 PEDIATRIC RN CPT-95004 Abd compl w upright 09:50:55 PEDIATRIC RN CPT-J1100 Decadron 4mg (Dexamethasone) 15:51:24 PEDIATRIC RN CPT-J1030 Depo Medrol 40 mg (Methyl Prednisolone Acetate) 15:51: 24 PEDIATRIC RN CPT-28379 Abx/Therapy Injection 15:51:24 PEDIATRIC RN CPT-J1100 Decadron 4mg (Dexamethasone) 15:26:33 PEDIATRIC RN CPT-J1030 Depo Medrol 40 mg (Methyl Prednisolone Acetate) 15:26: 33 PEDIATRIC RN CPT-10759 Sono retroperitoneal complete kidneys and bladder 17:15: 30 CDT CPT-97004 Abd compl w upright 16:09:25 CDT CPT-J1100 Decadron 8mg (Dexamethasone) 17:07:57 CDT CPT-41613 Abx/Therapy Injection 17:07:57 CDT CPT-J1100 Decadron 8mg (Dexamethasone) 16:55:24 CDT CPT-71824 Chest 2V Frontal and Lat 16:32:44 CDT
--- OUTSIDE RECORDS SUMMARY | 2016-11-04 11:22 | XMS REPORT | Clinical Summary ---
Author Author Admin, BRIELLEE Organization [email or web address] Address Unknown Phone Unavailable Allergies, Adverse Reactions, [...] sites Morbid obesity 278.01 Active Juliet Kimbrough [employer] PICKING SUPERVISOR Morbid obesity 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 Active Juliet [...] breath Nocturnal hypoxia 799.02 Active Fabiola Johnson [employer] SUPERVISOR Hypoxemia Neck pain 723.1 Resolved Vishal Hui [...] fibula Vaginal discharge 623.5 Active 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 [employer]ING SUPERVISOR Leukorrhea, not specified as infective DYSURIA 788.1 [...] TABS 1/2-1 tab TID PRN TRAMADOL HCL 93854271045 Active Lynda Juarezephraim FREELANCE PATTERNMAKER Active PROAIR HFA 108 (90 BASE) MCG/ACT AERS 2 puffs four times a day as needed 2015 ALBUTEROL SULFATE 50212856375 Active Ahmet Carbajal MD Active EQ NICOTINE 21 MG/24HR TRANS PT24 Apply daily to stop smoking NICOTINE 68450244154 Active Ahmet Carbajal MD Active BACTRIM DS 800-160 MG TABS 1 twice a day SULFAMETHOXAZOLE- TRIMETHOPRIM 37972516247 Active Ahmet Carbajal MD Active ADVAIR DISKUS 250-50 MCG/DOSE INH AEPB 1 puff twice a day for asthma FLUTICASONE-SALMETEROL 27337480411 Active Ahmet Carbaajl MD Active MONISTAT 7 COMBO PACK WOODROW 100 & 2 MG-% (9GM) VAG KIT 1 applicatorful per vagina q pm x 7 MICONAZOLE NITRATE 02278968140 No Longer Active Ahmet Carbajal MD Active FLAGYL 500 MG TAB 1 tablet by mouth bid METRONIDAZOLE 83084113457 No Longer Active Ahmet Carbajal MD Active OXYCODONE HCL ER 10 MG ORAL T12A 1/2 tab by mouth every 4 hours prn OXYCODONE HCL 57878511101 No Longer Active Ahmet Carbajal MD Active METHYLPREDNISOLONE 4 MG ORAL TABS po daily METHYLPREDNISOLONE 43118463263 No Longer Active Ahmet Carbajal MD Active LEVOFLOXACIN 500 MG ORAL TABS po daily LEVOFLOXACIN 22807740218 No Longer Active Ahmet Carbajal MD Active VIIBRYD 10 MG ORAL TABS Take 1 tablet once a day VILAZODONE HCL 15002442439 No Longer Active Ahmet Carbajal MD Active TOPAMAX 50 MG ORAL TABS 1 tab twice daily TOPIRAMATE 27851601833 No Longer Active Ahmet Carbajal MD Active DICLOFENAC SODIUM 50 MG TBEC 1 tablet by mouth four times daily PRN Pain 2015 DICLOFENAC SODIUM 29138710877 No Longer Active Ahmet Carbajal MD Active ADZENYS XR-ODT 6.3 MG ORAL TBED 1 tab po daily for ADHD AMPHETAMINE 38637292642 No Longer Active Ahmet Carbajal MD Active CHANTIX 1 MG TABS 1 twice a day to help quit smoking VARENICLINE TARTRATE 64271558694 No Longer Active Dipika Burgos MD Active CHANTIX STARTING MONTH EARNEST 0.5 MG X 11 & 1 MG X 42 TABS take as directed 2015 VARENICLINE TARTRATE 98189750710 No Longer Active Dipika Burgos MD Active TESSALON PERLES 100 MG CAP 1 to 2 tablets by mouth 3 times daily as needed for cough BENZONATATE 87962455474 No Longer Active 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 [employer] PICKING SUPERVISOR Active ABILIOMAR MAINTENA 400 MG IM SUSR 400mg injection every 26 days ARIPIPRAZOLE 56296260048 Active Silvia Casey FREELANCE PATTERNMAKER Active IMITREX 50 MG ORAL TABS 0.5 po x 1 PRN Headache. May repeat dose x 1 in 2 hours if needed SUMATRIPTAN SUCCINATE 55438249556 Active Suzan Boo [employer] PICKING SUPERVISOR Active HYDROCODONE-ACETAMINOPHEN 5-325 MG TABS 1 to 2 four times a day as needed for pain use until can be seen by specialist HYDROCODONE- ACETAMINOPHEN 04138166779 No Longer Active Vishal Hui MD Active PROAIR HFA 108 (90 BASE) MCG/ACT AERS 2 puffs four times a day as needed 2015 ALBUTEROL SULFATE 44483251179 No Longer Active Vishal Hui MD Active PREDNISONE 20 MG TABS 2 daily for 5 days then 1 daily for 5 days PREDNISONE 91261923275 No Longer Active Vishal Hui MD Active ZITHROMAX Z-EARNEST 250 MG TABS 2 today and then 1 daily for 4 days AZITHROMYCIN 26910996019 No Longer Active Vishal Hui MD Active DICLOFENAC POTASSIUM TABS Take 1 tablet twice a day (pt. is not sure of the dose.) DICLOFENAC POTASSIUM TABS 93469625324 No Longer Active Vishal Hui MD Active VERAPAMIL HCL ER 120 MG ORAL CR-TABS Take 1 tablet by mouth twice a day. VERAPAMIL HCL 24921827752 Active Vishal Hui MD Active FLAGYL 500 MG TAB 1 tablet by mouth bid METRONIDAZOLE 67272430861 No Longer Active Vishal Hui MD Active FLUTICASONE PROPIONATE 50 MCG/ACT SUSP 2 sprays each nostril daily before bed. FLUTICASONE PROPIONATE 99392430344 Active Fabiola Johnson APRN Active BENADRYL 25 MG CAP 4 po at bedtime for insomnia DIPHENHYDRAMINE HCL 41689934065 Active Fabiola Johnson APRN Active KLONOPIN 1 MG ORAL TABS 1 tab po TID CLONAZEPAM 93616873556 Active Fabiola Johnson APRN Active VALIUM 5 MG TAB Take 1-2 tablets daily DIAZEPAM 44545308163 No Longer Active Fabiola Johnson APRN Active METOPROLOL TARTRATE 25 MG ORAL TABS 1/2 tablet twice daily for heart rate and blood pressure METOPROLOL TARTRATE 90210484803 No Longer Active Fabiola Johnson APRN Active MIRALAX ORAL POWD 17GMS DAILY IN WATER POLYETHYLENE GLYCOL 3350 18960277398 Active Vishal Hui MD Active MIRALAX PACK 1 po qd PRN Constipation POLYETHYLENE GLYCOL 3350 98619534575 No Longer Active Ahmet Carbajal MD Active MINIPRESS 2 MG CAPS 4 cap po at night PRAZOSIN HCL 81124385498 No Longer Active Ahmet Carbajal MD Active PIROXICAM 20 MG CAPS 1 cap po qd PRN Pain PIROXICAM 09993668477 No Longer Active Ahmet Carbajal MD Active TRAMADOL HCL 50 MG TABS 1-2 po TID PRN Pain TRAMADOL HCL 10950207284 No Longer Active Ahmet Carbajal MD Active METOPROLOL TARTRATE 50 MG TAB 1 po bid METOPROLOL TARTRATE 81979166669 No Longer Active Ahmet Carbajal MD Active ABILIFY 15 MG ORAL TABS 1 tab daily ARIPIPRAZOLE 08807270908 No Longer Active Ahmet Carbajal MD Active PROZAC 20 MG ORAL CAPS 1 tab daily FLUOXETINE HCL 97529319709 No Longer Active Ahmet Carbajal MD Active AMBIEN 5 MG ORAL TABS 1 tab at bedtime ZOLPIDEM TARTRATE 50240941208 No Longer Active Ahmet Carbajal MD Active PREDNISONE 20 MG TAB 2 tabs daily for 4 days, 1 tab daily for 4 days, 1/2 tab daily for 4 days PREDNISONE 45388907672 No Longer Active Ahmet Carbajal MD Active KEFLEX 500 MG CAP 1 po TID x 10 days CEPHALEXIN 74215264641 No Longer Active Vishal Hui MD Active SAPHRIS 5 MG SUBL 1 po bid ASENAPINE MALEATE 10156077639 No Longer Active Tataina Mauricio NORIEGA Active LATUDA 80 MG TABS Take one by mouth daily LURASIDONE HCL 71847842560 No Longer Active Jillina Frazelephraim [employer] PICKING SUPERVISOR Active AMLODIPINE BESYLATE 5 MG TABS 1 tablet by mouth daily AMLODIPINE BESYLATE 01253388207 No Longer Active Jillina Frazell [employer]ANGE PICKING SUPERVISOR Active AMITRIPTYLINE HCL 100 MG TAB one at hs AMITRIPTYLINE HCL 52984416315 No Longer Active Vishal Hui MD Active TRAZODONE HCL 100 MG TAB take 1 at bedtime TRAZODONE HCL 24329451933 No Longer Active Vishal Hui MD Active VYVANSE 40 MG CAPS 1 daily, LISDEXAMFETAMINE DIMESYLATE 83514543650 No Longer Active Vishal Hui MD Active IBUPROFEN 600 MG TAB 1 po TID PRN IBUPROFEN 54951412169 No Longer Active Vishal Hui MD Active PROZAC 20 MG CAP Take one by mouth daily FLUOXETINE HCL 75785211887 No Longer Active Vishal Hui MD Active ZOFRAN 4 MG TABS 1 po q6hr PRN Nausea ONDANSETRON HCL Active Vishal Hui MD Active BACTRIM DS 800-160 MG TABS 1 pill by mouth twice daily SULFAMETHOXAZOLE-TRIMETHOPRIM 16338128116 No Longer Active Sahara Rodriguez MD PhD Active DIFLUCAN 150 MG TAB 1 tablet by mouth daily FLUCONAZOLE 75984632801 No Longer Active Vishal Hui MD Active TIZANIDINE HCL 4 MG TABS 1 po q6hr PRN Muscle Spasm/Back Pain TIZANIDINE HCL 92124707345 Active Vishal Hui MD Active CLINDAMYCIN HCL 150 MG CAPS 1 four times a day CLINDAMYCIN HCL 51299279382 No Longer Active Neeraj Collins MD Active KEFLEX 500 MG ORAL CAPS 1 cap QID by mouth CEPHALEXIN 77592594761 No Longer Active Neeraj Collins MD Active DIFLUCAN 150 MG TABS 1 pill every other day x 2 doses FLUCONAZOLE 54183998264 No Longer Active Sahara Rodriguez MD PhD Active MELATONIN 3 MG CAPS 2 po q hs MELATONIN 02379573615 No Longer Active Sahara Rodriguez MD PhD Active MULTIVITAMINS CAPS Take one by mouth daily MULTIPLE VITAMIN 59386632610 No Longer Active Sahara Rodriguez MD PhD Active BACTRIM DS 800-160 MG TAB 1 tab by mouth twice daily TRIMETHOPRIM-SULFAMETHOXAZOLE 87164413435 No Longer Active Sahara Rodriguez MD PhD Active [facility] PROBIOTIC ORAL CHEW 2 daily po PROBIOTIC PRODUCT 27051500681 No Longer Active Sahara Rodriguez MD PhD Active BACTRIM DS 800-160 MG TABS 1 po BID x 7 days SULFAMETHOXAZOLE-TRIMETHOPRIM 65243919733 No Longer Active Vishal Hui MD Active CHANTIX STARTING MONTH EARNEST 0.5 MG X 11 & 1 MG X 42 TABS 0.5mg daily for 3 days , then 0.5mg BID for 4 days, then 1mg BID VARENICLINE TARTRATE 21293389469 No Longer Active TAMARA Gray Active VERAPAMIL HCL CR 120 MG TAB CR 1 po bid VERAPAMIL HCL 71632846531 No Longer Active Vishal Hui MD Active METOPROLOL SUCCINATE 50 MG TB24 1 tablet by mouth daily METOPROLOL SUCCINATE 26770031870 No Longer Active Vishal Hui MD Active SAPHRIS 10 MG SUBL 1 tab po bid ASENAPINE MALEATE 55096510693 No Longer Active Vishal Hui MD Active LISINOPRIL 20 MG TABS 1 tab po qd LISINOPRIL 97770061042 No Longer Active Vishal Hui MD Active LATUDA 20 MG TABS Take one by mouth daily LURASIDONE HCL 54654372584 No Longer Active Vishal Hui MD Active TRAZODONE HCL 50 MG TABS 1/2 tab po qd prn for anxiety TRAZODONE HCL 47196389002 No Longer Active Vishal Hui MD Active OMEPRAZOLE 20 MG TBEC 1 po q a.m. 30min prior to first food intake OMEPRAZOLE 30615784878 Active Vishal Hui MD Active RANITIDINE HCL 150 MG CAPS 1 twice a day RANITIDINE HCL 87192157365 Active 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 ORANGE PICKING SUPERVISOR Active LINZESS 290 MCG CAPS Take one by mouth daily LINACLOTIDE 93600267996 No Longer Active Vishal Hui MD Active SAPHRIS 5 MG SUBL 1 tab po qd ASENAPINE MALEATE 66396496035 No Longer Active Vishal Hui MD Active ZALEPLON 10 MG CAPS 1 cap po every other night ZALEPLON 91139365760 No Longer Active Vishal Hui MD Active LYRICA 50 MG CAPS 1 tab po TID PREGABALIN 67821540776 No Longer Active Vishal Hui MD Active LORATADINE 10 MG TABS 1 tab po qd LORATADINE 14168791064 No Longer Active Vishal Hui MD Active VERAPAMIL HCL ER 180 MG CR-TABS 1 tab po bid VERAPAMIL HCL 24112032832 No Longer Active Vishal Hui MD Active MIRALAX POWD 1 capfull once daily POLYETHYLENE GLYCOL 3350 07035473525 No Longer Active Vishal Hui MD Active PREDNISONE 20 MG TABS 1 tab po qd PREDNISONE 11320763907 No Longer Active Renzo Thornton DO Active LEVOFLOXACIN 500 MG TABS 1 tab po qd LEVOFLOXACIN 19912352621 No Longer Active Renzo Thornton DO Active BUSPIRONE HCL 15 MG TABS 1 tab po TID BUSPIRONE HCL 47014488032 No Longer Active Renzo Thornton DO Active BENZTROPINE MESYLATE 1 MG TABS 1 tab po qd BENZTROPINE MESYLATE 54367362563 No Longer Active Renzo Thornton DO Active ATENOLOL 25 MG TABS 1 tab po qd ATENOLOL 14442516808 No Longer Active Renzo Thornton DO Active ESCITALOPRAM OXALATE 20 MG TABS 1 tab po qd ESCITALOPRAM OXALATE 37049370636 No Longer Active Renzo Thornton DO Active ADVAIR DISKUS 250-50 MCG/DOSE AEPB 1 puff BID FLUTICASONE-SALMETEROL 96953000079 No Longer Active Renzo Thornton DO Active PREDNISONE 20 MG TAB 2 tabs daily for 3 days, 1 tab daily for 3 days, 1/2 tab daily for 2 days PREDNISONE 34077765168 No Longer Active Vishal Hui MD Active CEFDINIR 300 MG CAPS by mouth twice a day CEFDINIR 77950449041 No Longer Active Vishal Hui MD Active LANSOPRAZOLE 30 MG CPDR 1 cap po qd LANSOPRAZOLE 80359417539 No Longer Active Vishal Hui MD Active BACLOFEN 20 MG TABS 1 tab po tid BACLOFEN 59941649796 No Longer Active Vishal Hui MD Active ADVAIR DISKUS 250-50 MCG/DOSE AEPB 1 puff BID ADVAIR DISKUS 250-50 MCG/DOSE AEPB FLUTICASONE-SALMETEROL Inactive ESCITALOPRAM OXALATE 20 MG TABS 1 tab po qd ESCITALOPRAM OXALATE 20 MG TABS 709539 ESCITALOPRAM OXALATE Inactive ATENOLOL 25 MG TABS 1 tab po qd ATENOLOL 25 MG TABS 141798 ATENOLOL Inactive BENZTROPINE MESYLATE 1 MG TABS 1 tab po qd BENZTROPINE MESYLATE 1 MG TABS 996731 BENZTROPINE MESYLATE Inactive BUSPIRONE HCL 15 MG TABS 1 tab po TID BUSPIRONE HCL 15 MG TABS 049080 BUSPIRONE HCL Inactive LEVOFLOXACIN 500 MG TABS 1 tab po qd LEVOFLOXACIN 500 MG TABS 671547 LEVOFLOXACIN Inactive PREDNISONE 20 MG TABS 1 tab po qd PREDNISONE 20 MG TABS 885596 PREDNISONE Inactive MIRALAX POWD 1 capfull once daily MIRALAX POWD 729489 POLYETHYLENE GLYCOL 3350 Inactive VERAPAMIL HCL ER 180 MG CR-TABS 1 tab po bid VERAPAMIL HCL ER 180 MG CR-TABS VERAPAMIL HCL Inactive LORATADINE 10 MG TABS 1 tab po qd LORATADINE 10 MG TABS 794468 LORATADINE Inactive LYRICA 50 MG CAPS 1 tab po TID LYRICA 50 MG CAPS PREGABALIN Inactive ZALEPLON 10 MG CAPS 1 cap po every other night ZALEPLON 10 MG CAPS 557733 ZALEPLON Inactive SAPHRIS 5 MG SUBL 1 tab po qd SAPHRIS 5 MG SUBL ASENAPINE MALEATE Inactive TRAZODONE HCL 50 MG TABS 1/2 tab po qd prn for anxiety TRAZODONE HCL 50 MG TABS 541880 TRAZODONE HCL Inactive LATUDA 20 MG TABS Take one by mouth daily LATUDA 20 MG TABS LURASIDONE HCL Inactive LISINOPRIL 20 MG TABS 1 tab po qd LISINOPRIL 20 MG TABS 929781 LISINOPRIL Inactive SAPHRIS 10 MG SUBL 1 [...] twice daily BACTRIM DS 800-160 MG TAB 433703 TRIMETHOPRIM-SULFAMETHOXAZOLE Inactive MULTIVITAMINS CAPS Take one by mouth daily MULTIVITAMINS CAPS MULTIPLE VITAMIN Inactive MELATONIN 3 MG CAPS 2 po q hs MELATONIN 3 MG CAPS 629862 MELATONIN Inactive KEFLEX 500 MG ORAL CAPS 1 cap QID by mouth KEFLEX 500 MG ORAL CAPS 330888 CEPHALEXIN Inactive CLINDAMYCIN HCL 150 MG CAPS 1 four times a day CLINDAMYCIN HCL 150 MG CAPS 589225 CLINDAMYCIN HCL Inactive DIFLUCAN 150 MG TAB 1 tablet by mouth daily DIFLUCAN 150 MG TAB 247095 FLUCONAZOLE Inactive PROZAC 20 MG CAP Take one by mouth daily PROZAC 20 MG CAP 476252 FLUOXETINE HCL Inactive IBUPROFEN 600 MG TAB 1 po TID PRN IBUPROFEN 600 MG TAB 372497 IBUPROFEN Inactive VYVANSE 40 MG CAPS 1 daily, VYVANSE 40 MG CAPS LISDEXAMFETAMINE DIMESYLATE Inactive TRAZODONE HCL 100 MG TAB take 1 at bedtime TRAZODONE HCL 100 MG TAB 786282 TRAZODONE HCL Inactive AMITRIPTYLINE HCL 100 MG TAB one at hs AMITRIPTYLINE HCL 100 MG TAB 485980 AMITRIPTYLINE HCL Inactive AMLODIPINE BESYLATE 5 MG TABS 1 tablet by mouth daily AMLODIPINE BESYLATE 5 MG TABS 180765 AMLODIPINE BESYLATE Inactive LATUDA 80 MG TABS Take one by mouth daily LATUDA 80 MG TABS LURASIDONE HCL Inactive SAPHRIS 5 MG SUBL 1 po bid SAPHRIS 5 MG SUBL ASENAPINE MALEATE Inactive PREDNISONE 20 MG TAB 2 tabs daily for 4 days, 1 tab daily for 4 days, 1/2 tab daily for 4 days PREDNISONE 20 MG TAB 370104 PREDNISONE Inactive AMBIEN 5 MG ORAL TABS 1 tab at bedtime AMBIEN 5 MG ORAL TABS 264841 ZOLPIDEM TARTRATE Inactive PROZAC 20 MG ORAL CAPS 1 tab daily PROZAC 20 MG ORAL CAPS 990629 FLUOXETINE HCL Inactive ABILIFY 15 MG ORAL TABS 1 tab daily ABILIFY 15 MG ORAL TABS 861021 ARIPIPRAZOLE Inactive METOPROLOL TARTRATE 50 MG TAB 1 po bid METOPROLOL TARTRATE 50 MG TAB 387854 METOPROLOL TARTRATE Inactive TRAMADOL HCL 50 MG TABS 1-2 po TID PRN Pain TRAMADOL HCL 50 MG TABS 850240 TRAMADOL HCL Inactive PIROXICAM 20 MG CAPS 1 cap po qd PRN Pain PIROXICAM 20 MG CAPS 410606 PIROXICAM Inactive MINIPRESS 2 MG CAPS 4 cap po at night MINIPRESS 2 MG CAPS 421325 PRAZOSIN HCL Inactive MIRALAX PACK 1 po qd PRN Constipation MIRALAX PACK 185992 POLYETHYLENE GLYCOL 3350 Inactive METOPROLOL TARTRATE 25 MG ORAL TABS 1/2 tablet twice daily for heart rate and blood pressure METOPROLOL TARTRATE 25 MG ORAL TABS 715407 METOPROLOL TARTRATE Inactive VALIUM 5 MG TAB Take 1-2 tablets daily VALIUM 5 MG TAB 395056 DIAZEPAM Inactive FLAGYL 500 MG TAB 1 tablet by mouth bid FLAGYL 500 MG TAB 236263 METRONIDAZOLE Inactive DICLOFENAC POTASSIUM TABS Take 1 tablet twice a day (pt. is not sure of the dose.) DICLOFENAC POTASSIUM TABS DICLOFENAC POTASSIUM TABS Inactive ZITHROMAX Z-EARNEST 250 MG TABS 2 today and then 1 daily for 4 days ZITHROMAX Z-EARNEST 250 MG TABS 3977706 AZITHROMYCIN Inactive PREDNISONE 20 MG TABS 2 daily for 5 days then 1 daily for 5 days PREDNISONE 20 MG TABS 949855 PREDNISONE Inactive PROAIR HFA 108 (90 BASE) MCG/ACT AERS 2 puffs four times a day as needed 2015 PROAIR HFA 108 (90 BASE) MCG/ACT AERS ALBUTEROL SULFATE Inactive HYDROCODONE-ACETAMINOPHEN 5-325 MG TABS 1 to 2 four times a day as needed for pain use until can be seen by specialist HYDROCODONE- ACETAMINOPHEN 5-325 MG TABS 142022 HYDROCODONE-ACETAMINOPHEN Inactive TESSALON PERLES 100 MG CAP 1 to 2 tablets by mouth 3 times daily as needed for cough TESSALON PERLES 100 MG CAP 496413 BENZONATATE Inactive CHANTIX STARTING MONTH EARNEST 0.5 [...] Pain 2015 DICLOFENAC SODIUM 50 MG TBEC 428260 DICLOFENAC SODIUM Inactive TOPAMAX 50 MG ORAL TABS 1 tab twice daily TOPAMAX 50 MG ORAL TABS 198514 TOPIRAMATE Inactive VIIBRYD 10 MG ORAL TABS Take 1 tablet once a day VIIBRYD 10 MG ORAL TABS VILAZODONE HCL Inactive LEVOFLOXACIN 500 MG ORAL TABS po daily LEVOFLOXACIN 500 MG ORAL TABS 688809 LEVOFLOXACIN Inactive METHYLPREDNISOLONE 4 MG ORAL TABS po daily METHYLPREDNISOLONE 4 MG ORAL TABS 696495 METHYLPREDNISOLONE Inactive OXYCODONE HCL ER 10 MG ORAL T12A 1/2 tab by mouth every 4 hours prn OXYCODONE HCL ER 10 MG ORAL T12A OXYCODONE HCL Inactive FLAGYL 500 MG TAB 1 tablet by mouth bid FLAGYL 500 MG TAB 245604 METRONIDAZOLE Inactive MONISTAT 7 COMBO PACK WOODROW 100 & 2 MG-% (9GM) VAG KIT 1 applicatorful per vagina q pm x 7 MONISTAT 7 COMBO PACK WOODROW 100 & 2 MG-% (9GM) VAG KIT MICONAZOLE NITRATE Inactive CEFDINIR 300 MG CAPS by mouth twice a day CEFDINIR 300 MG CAPS 830583 CEFDINIR Inactive PREDNISONE 20 MG TAB 2 tabs daily for 3 days, 1 tab daily for 3 days, 1/2 tab daily for 2 days PREDNISONE 20 MG TAB 107864 PREDNISONE Inactive BACTRIM DS 800-160 MG TABS 1 po BID x 7 days BACTRIM DS 800-160 MG TABS 19820521 SULFAMETHOXAZOLE-TRIMETHOPRIM Inactive DIFLUCAN 150 MG TABS 1 pill every other day x 2 doses DIFLUCAN 150 MG TABS 214151 FLUCONAZOLE Inactive BACTRIM DS 800-160 MG TABS 1 pill by mouth twice daily BACTRIM DS 800-160 MG TABS 613575 SULFAMETHOXAZOLE-TRIMETHOPRIM Inactive KEFLEX 500 MG CAP 1 po TID x 10 days KEFLEX 500 MG CAP 824342 CEPHALEXIN Inactive Advance Directives Directive Description Start [...] E&M - 3141-9 287.9 [lb_av] Weight Measured Diagnostic Results Date Name [...] % 11.6-14.8 platelet count 394 10^3/MM^3 10*3/mm3 183-136 0693/01/11 leukocyte count, blood 13.8 10^3/MM^3 10*3/mm3 4.6-10.2 [...] count 379 10^3/MM^3 10*3/mm3 142-424 Lab Report: Chlamydia/GC APTIMA/[id number] - Lab chlamydia DNA probe NOT DETECTED NOT DETECTED Lab Report: Chlamydia/GC [id number] - Microbiology Neisseria gonorrhoeae DNA probe NOT DETECTED NOT DETECTED Lab Report: Comp. Metabolic Panel - Chemistry sodium, serum 140 mmol/L 273-244 0569/08/08 carbon dioxide, venous blood 33.7 mmol/L 21.0-32.0 potassium, serum 5.0 mmol/L 3.5-5.2 chloride, serum 103 mmol/L 98-107 blood glucose 80 mg/dL 65-110 urea nitrogen, blood 13 mg/dL 7-18 creatinine, serum 0.88 mg/dL 0.55-1.30 alanine aminotransferase (SGPT), serum 54 U/L 12-78 aspartate aminotransferase (SGOT), serum 29 U/L 15-37 calcium, serum 9.7 mg/dL 8.5-10.1 bilirubin, serum, total 0.30 mg/dL 0.00-1.00 sodium, serum 139 mmol/L 222-864 2560/01/11 carbon dioxide, venous blood 26.6 mmol/L 21.0-32.0 potassium, serum 4.1 mmol/L 3.5-5.2 chloride, serum 100 mmol/L 98-107 blood glucose 86 mg/dL 65-110 urea nitrogen, blood 16 mg/dL 7-18 creatinine, serum 1.00 mg/dL 0.55-1.30 alanine aminotransferase (SGPT), serum 48 U/L 12-78 aspartate aminotransferase (SGOT), serum 17 U/L 15-37 calcium, serum 9.1 mg/dL 8.5-10.1 bilirubin, serum, total 0.40 mg/dL 0.00-1.00 sodium, serum 142 mmol/L 813-595 3475/06/08 carbon dioxide, venous blood 27.6 mmol/L 21.0-32.0 potassium, serum 4.0 mmol/L 3.5-5.2 chloride, serum 105 mmol/L 98-107 blood glucose 95 mg/dL 65-110 urea nitrogen, blood 8 mg/dL 7-18 creatinine, serum 0.75 mg/dL 0.55-1.30 alanine aminotransferase (SGPT), serum 49 U/L 12-78 aspartate aminotransferase (SGOT), serum 28 U/L 15-37 calcium, serum 9.4 mg/dL 8.5-10.1 bilirubin, serum, total 0.30 mg/dL 0.00-1.00 sodium, serum 139 mmol/L 148-844 5616/12/22 carbon dioxide, venous blood 26.8 mmol/L 21.0-32.0 [...] Rate - Chemistry sodium, serum 139 mmol/L 738-876 8397/12/11 carbon dioxide, venous blood 25.4 mmol/L 21.0-32.0 potassium, serum 3.9 mmol/L 3.5-5.2 chloride, serum 105 mmol/L 98-107 blood glucose 98 mg/dL 65-110 urea nitrogen, blood 18 mg/dL 7-18 creatinine, serum 0.96 mg/dL 0.55-1.30 alanine aminotransferase (SGPT), serum 34 U/L aspartate aminotransferase (SGOT), serum 12 U/L 15-37 calcium, serum 8.6 mg/dL 8.5-10.1 bilirubin, serum, total 0.20 mg/dL 0.00-1.00 Lab Report: MonoSpot, UADIP W/MICRO, AUTO - [...] pH, urine, semiquantitative 6.0 5.0-8.5 Lab Report: UADIP W/MICRO, AUTO - Chemistry protein, total urine random Negative mg/dL Negative RBC, urine, dipstick Negative Negative protein, total urine random Negative mg/dL Negative RBC, urine, dipstick Negative Negative protein, total urine random Negative mg/dL Negative RBC, urine, dipstick Negative Negative RBC, urine, dipstick 1+ Negative RBC, [...] Trace Negative nitrite, urine, semiquantitative Negative Negative urobilinogen, urine, semiquantitative [...] mg/dL Encounters Code Encounter Date Provider Facility CPT-17892 Level 3 Est. 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 Patient 14:45:00 [employer]SEM[employer]ER Ahmet Carbajal MD [facility] CPT-03559 Level 3 Est. Patient 13:59: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 Est[facility] Patient 18:18:53 CDT Neeraj Collins MD [facility] CPT-79530 Level 3 Est. Patient 15:50:44 CDT Vishal Hui MD [facility] CPT-41295 Level 3 Est. Patient 11:36:17 CDT Ahmet Carbajal MD [facility] CPT-71877 Level 3 Est. Patient 13:29:16 CDT Vishal Hui MD [facility] CPT-48363 Level 3 Est. Patient 14:27:52 CDT Neeraj Collins MD [facility] CPT-20763 Level 3 Est. Patient 08:56:03 [facility]8 Level 4 Est. Patient 12:11:48 CDT Fabiolaniall Johnson [facility] CPT-56831 Level 3 New Patient 16:53:37 CDT Albert Caldera MD [facility] CPT-23479 Level 3 Est. Patient 11:25:49 CDT Renzo Thornton DO [facility] CPT-07319 Level 3 Est. Patient 15:22:01 CDT Ahmet Carbajal MD [facility] CPT-11341 Level 4 Est. Patient 09:00:51 [employer]ER Vishal Hui MD [facility] CPT-88249 Level 3 Est. 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 Patient 08:41:09 SMALL [employer] ASSEMBLER Vishal Hui MD [facility] CPT-26061 Level 4 Est. Patient 10:19:35 [employer] ASSEMBLER Vishal Hui MD [facility] CPT-24923 Level 3 Est. Patient 13:35:45 CDT Vishal Hui MD [facility] CPT-69333 Level 4 Est. Patient 10:08:37 CDT Vishal Hui MD [facility] CPT-78205 Level 3 Est. Patient 11:22:10 CDT Vishal Hui MD [facility] CPT-77038 Level 3 Est. Patient 11:03:32 CDT Sahara Rodriguez MD, PhD [facility] CPT-08294 Level 3 Est. Patient 09:41:35 CDT Vishal Hui MD [facility] CPT-12763 Level 3 Est. Patient 12:00:41 CDT Neeraj Collins MD [facility] CPT-62262 Level 3 Est. Patient 09:16:24 CDT Vishal Hui MD [facility] CPT-20622 Level 4 Est. Patient 13:59:09 CDT Neeraj Collins MD [facility] CPT-02062 Level 3 Est. Patient 15:19:43 CDT Renzo Thornton [facility] CPT-26738 Level 3 Est. Patient 18:10:26 CDT Sahara Rodriguez MD [facility] CPT-92957 Level 3 Est. Patient 14:49:50 CDT Vishal Hui MD [facility] CPT-01573 Level 4 Est. Patient 18:41:46 CDT Neeraj Collins MD [facility] CPT-03057 Level 4 Est. Patient 09:18:38 [employer] Vishal Hui MD [facility] CPT-11122 Level 3 Est. Patient 14:43:55 [employer] Vishal Hui MD [facility] CPT-80795 Level 3 Est. Patient 15:26:33 [employer] Sahara Rodriguez MD PhD [facility] CPT-40226 Level 3 Est. Patient 10:32:14 [employer] Vishal Hui MD [facility] CPT-05804 Level 3 Est. Patient 15:12:52 [employer] Vishal Hui MD [facility] CPT-64499 Level 4 Est. Patient 09:19:27 CDT Vishal Hui MD [facility] CPT-59803 Level 3 Est. Patient 15:53:00 CDT Renzo Thornton DO [facility] CPT-96377 Level 3 Est. Patient 15:50:30 CDT Renzo Thornton [facility] CPT-96194 Level 3 Est. Patient 16:55:24 CDT Vishal Hui MD [facility] Procedures Code Procedure Name Date Entry Date Standard Description CPT-13516 Abx/Therapy Injection 17:34:30 [employer] CPT-55844 Nexplanon Removal with Reinsertion 14:09:32 CDT CPT-J7307 Nexplanon (Implant) 14:09:32 CDT CPT-OV Office Visit 14:09:32 CDT CPT-76969 UA w micro - LAB USE ONLY 16:21:13 CDT CPT-59129 Wet Mount - LAB USE ONLY 16:21:13 CDT CPT-52947 First Vx - Ix admin for Medicare patients 14:37:47 CDT CPT-00733 Fluzone Preservative Free Intramuscular Suspension 14:37 :47 CDT CPT-07876 Abx/Therapy Injection 13:54:22 CDT CPT-78617 Abx/Therapy Injection 08:47:09 CDT CPT-59645 Abx/Therapy Injection 13:29:56 CDT CPT-06595 Abx/Therapy Injection 08:36:16 CDT CPT-81605 Wet Mount - LAB USE ONLY 17:44:58 CDT CPT-18746 UA w micro - LAB USE ONLY 17:44:58 CDT CPT-74263 CMP - LAB USE ONLY 17:44:58 CDT CPT-89718 Venipuncture Draw Fee 17:44:58 CDT CPT-19771 Cervical Min 4V - XRAY USE ONLY 09:01:40 CDT CPT-49353 Chest 2V Frontal and Lat - XRAY USE ONLY 11:06:31 CDT CPT-86094 EKG Trac and Interp - XRAY USE ONLY 11:31:43 CDT 08/26 CPT-J3420 Vitamin B12 1000mcg (Cyanocobalamin) 08:10:26 [employer] 04/12 CPT-34260 Abx/Therapy Injection 08:10:26 [employer] CPT-G0438 Initial Annual Wellness Exam 19:01:01 [employer] CPT-J3420 Vitamin B12 1000mcg (Cyanocobalamin) 16:57:46 CDT 08/14 CPT-87478 Recombivax HB Injection Suspension 5 MCG/0.5ML 08:37:50 [employer] CPT-03192 Immunization Single Admin 08:37:50 [employer] CPT-J3420 Vitamin B12 1000mcg (Cyanocobalamin) 08:32:16 [employer] 03/11 CPT-02474 Abx/Therapy Injection 08:32:16 [employer] CPT-79651 Chest 2V Frontal and Lat 11:46:38 [employer] CPT-33811 Venipuncture Draw Fee 09:12:45 [employer] CPT-J3420 Vitamin B12 1000mcg (Cyanocobalamin) 08:50:15 [employer] 02/08 CPT-97486 Abx/Therapy Injection 08:50:15 [employer] CPT-Cryo Cryotherapy 10:19:35 [employer] CPT-000 Give Appropriate Flu Vaccine 09:22:16 CDT CPT-J3420 Vitamin B12 1000mcg (Cyanocobalamin) 19:08:57 CDT 01/11 CPT-24045 Abx/Therapy Injection 19:08:57 CDT CPT-J3420 Vitamin B12 1000mcg (Cyanocobalamin) 08:19:08 CDT 12/11 CPT-54216 Abx/Therapy Injection 08:19:08 CDT CPT-J3420 Vitamin B12 1000mcg (Cyanocobalamin) 14:48:00 CDT 11/09 CPT-26979 Abx/Therapy Injection 14:47:59 CDT CPT-J3420 Vitamin B12 1000mcg (Cyanocobalamin) 08:34:04 CDT 10/09 CPT-18116 Abx/Therapy Injection 08:34:04 CDT CPT-J3420 Vitamin B12 1000mcg (Cyanocobalamin) 09:18:52 CDT 09/11 CPT-15589 Abx/Therapy Injection 09:18:52 CDT CPT-J3420 Vitamin B12 1000mcg (Cyanocobalamin) 08:35:44 CDT 09/04 CPT-96505 Abx/Therapy Injection 08:35:44 CDT CPT-25112 Immunization Single Admin 11:07:16 CDT CPT-79666 Hepatitis B adult IM 11:07:16 CDT CPT-J3420 Vitamin B12 1000mcg (Cyanocobalamin) 11:00:49 CDT 08/28 CPT-J1040 Depo Medrol 80 mg (Methyl Prednisolone Acetate) 11:00: 49 CDT CPT-48556 Abx/Therapy Injection 11:00:49 CDT CPT-J1040 Depo Medrol 80 mg (Methyl Prednisolone Acetate) 09:16: 23 CDT CPT-J3420 Vitamin B12 1000mcg (Cyanocobalamin) 08:27:05 CDT 08/20 CPT-67274 Abx/Therapy Injection 08:27:05 CDT CPT-04542 Recombivax HB Injection Suspension 5 MCG/0.5ML 10:00:41 CDT CPT-86648 Administration single or combination vaccine inc oral 10 :00:41 CDT CPT-39128 Sono transvag pelvis non OB uterus ovaries cervix 16:36: 57 CDT CPT-42404 LS spine comp w obliq 09:50:55 [employer] CPT-43068 Abd compl w upright 09:50:55 [employer] CPT-J1100 Decadron 4mg (Dexamethasone) 15:51:24 [employer] CPT-J1030 Depo Medrol 40 mg (Methyl Prednisolone Acetate) 15:51: 24 [employer] CPT-90446 Abx/Therapy Injection 15:51:24 [employer] CPT-J1100 Decadron 4mg (Dexamethasone) 15:26:33 [employer] CPT-J1030 Depo Medrol 40 mg (Methyl Prednisolone Acetate) 15:26: 33 [employer] CPT-27300 Sono retroperitoneal complete kidneys and bladder 17:15: 30 CDT CPT-05244 Abd compl w upright 16:09:25 CDT CPT-J1100 Decadron 8mg (Dexamethasone) 17:07:57 CDT CPT-73732 Abx/Therapy Injection 17:07:57 CDT CPT-J1100 Decadron 8mg (Dexamethasone) 16:55:24 CDT CPT-02180 Chest 2V Frontal and Lat 16:32:44 CDT
[2016-11-04] MEDS ORDERED: NS IV 1000 ML 1,000 ML IV ONE (11:23)
[2016-11-04] MEDS ORDERED: diphenhydrAMINE 50 MG/ML INJ (BENADRYL) IV STA (11:23)
[2016-11-04] MEDS ORDERED: ORPHENADRINE 60 MG/2 ML (NORFLEX) AMP IV STA (11:23)
[2016-11-04] MEDS ORDERED: KETOROLAC 30 MG/ML VIAL IVP STA (11:23)
--- OUTSIDE RECORDS SUMMARY | 2016-11-04 11:24 | XMS REPORT | Clinical Summary ---
Author Author Admin, FLOR Organization [facility] [employer] Address Unknown Phone Unavailable Allergies, Adverse Reactions, [...] Hui MD Dysthymic disorder Hypertension 401.9 Active Vsihal Hui MD Unspecified essential hypertension Pneumonia, organism [...] sites Morbid obesity 278.01 Active Juliet Kimbrough TURN OUT Morbid obesity 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 Active Juliet [...] breath Nocturnal hypoxia 799.02 Active Fabiola Johnson TURN OUT Hypoxemia Neck pain 723.1 Resolved Vishal Hui [...] fibula Vaginal discharge 623.5 Active 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 TURN OUT Leukorrhea, not specified as infective DYSURIA 788.1 [...] bronchitis Generalized anxiety disorder 300.02 Active Ahmet Cabrajal MD Generalized anxiety disorder 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1 Jim Hui MD Abdominal pain ICD-789.00 Inactive Vishal Hui MD Cellulitis ICD-682.9 Jim Hui MD Pelvic pain ICD-625.9 Inactive Vishal [...] ICD-310.2 Jim Hui MD Nevus, 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 Inactive Vishal Hui MD Encounter for removal of sutures ICD-V58.32 Jim Hui MD Hot flashes ICD-627.2 Inactive Vishal Hui MD Personality change ICD-301.9 Jim Hui MD Leukocytosis ICD-288.60 Inactive Vishal Hui MD UTI ICD-599.0 Inactive Vishal Hui MD Headache, atypical ICD-784.0 Inactive Albert Caldera MD Elevated blood glucose ICD-790.29 Inactive Vishal Hui MD Gait unsteady ICD-781.2 Jim Caldera [...] Generic Name NDC Status Provider Patient Instruction ZITHROMAX Z-EARNEST 250 MG TABS 2 today and then 1 daily for 4 days AZITHROMYCIN [id number] Active Suzan Boo APRN Active PREDNISONE 10 MG TABS 2 daily for 5 days then 1 daily for 5 days PREDNISONE 98381118077 Active Suzan Boo APRN Active CLONAZEPAM 1 MG ORAL TABS 1 twice a day and an additional 1 tablet every other day as needed for pseudoseizures or anxiety CLONAZEPAM 38657075609 Active Ahmet Carbajal MD Active HYDROCODONE-ACETAMINOPHEN 5-325 MG ORAL TABS 1 tab two times a day HYDROCODONE-ACETAMINOPHEN 15675739492 No Longer Active Ahmet Carbajal MD Active LAMICTAL 100 MG ORAL TABS 1 tab 2 times qd. LAMOTRIGINE 80016966905 Active Ahmet Carbajal MD Active PREDNISONE 20 MG TABS 2 daily for 5 days then 1 daily for 5 days PREDNISONE 07372118943 No Longer Active Ahmet Carbajal MD Active FLUTICASONE PROPIONATE 50 MCG/ACT SUSP 1 to 2 sprays each nostril daily for allergies FLUTICASONE PROPIONATE 25932138525 Active Tila Valenzuela Active GUAIFENESIN-CODEINE 100-10 MG/5ML SYRP 5ml every 4 to 6 hours as needed for cough GUAIFENESIN-CODEINE 42704278990 Active Ahmet Carbajal MD Active BENADRYL 25 MG CAP 4 po at bedtime for insomnia DIPHENHYDRAMINE HCL 00380288484 No Longer Active Ahmet Carbajal MD Active ADVAIR DISKUS 250-50 MCG/DOSE INH AEPB 1 puff twice a day for asthma FLUTICASONE-SALMETEROL 58849725166 No Longer Active Ahmet Carbajal MD Active KLONOPIN 1 MG ORAL TABS 1 tab po TID CLONAZEPAM 99040919405 No Longer Active Ahmet Carbajal MD Active ABILIFY MAINTENA 400 MG IM SUSR 400mg injection every 26 days ARIPIPRAZOLE 04438941722 No Longer Active Ahmet Carbajal MD Active HALOPERIDOL 10 MG ORAL TABS 1 tab q.d HALOPERIDOL 76627454454 Active Ahmet Carbajal MD Active ASPIRIN 325 MG ORAL TABS 1 tab q.d ASPIRIN 21578752672 Active Ahmet Carbajal MD Active TRAMADOL HCL 50 MG TABS 1/2-1 tab TID PRN TRAMADOL HCL 97581239624 No Longer Active Ahmet Carbajal MD Active BACTRIM DS 800-160 MG TABS 1 twice a day SULFAMETHOXAZOLE- TRIMETHOPRIM 47059755613 No Longer Active Ahmet Carbajal MD Active PROAIR HFA 108 (90 BASE) MCG/ACT AERS 2 puffs four times a day as needed 2015 ALBUTEROL SULFATE 48774731787 Active Ahmet Carbajal MD Active EQ NICOTINE 21 MG/24HR TRANS PT24 Apply daily to stop smoking NICOTINE 43030319980 Active Ahmet Carbajal MD Active MONISTAT 7 COMBO PACK WOODROW 100 & 2 MG-% (9GM) VAG KIT 1 applicatorful per vagina q pm x 7 MICONAZOLE NITRATE 69765972007 No Longer Active Ahmet Carbajal MD Active FLAGYL 500 MG TAB 1 tablet by mouth bid METRONIDAZOLE 72485327119 No Longer Active Ahmet Carbajal MD Active OXYCODONE HCL ER 10 MG ORAL T12A 1/2 tab by mouth every 4 hours prn OXYCODONE HCL 92166492881 No Longer Active Ahmet Carbajal MD Active METHYLPREDNISOLONE 4 MG ORAL TABS po daily METHYLPREDNISOLONE 08238281631 No Longer Active Ahmet Carbajal MD Active LEVOFLOXACIN 500 MG ORAL TABS po daily LEVOFLOXACIN 93797861724 No Longer Active Ahmet Carbajal MD Active VIIBRYD 10 MG ORAL TABS Take 1 tablet once a day VILAZODONE HCL 86256061603 No Longer Active Ahmet Carbajal MD Active TOPAMAX 50 MG ORAL TABS 1 tab twice daily TOPIRAMATE 81567749515 No Longer Active Ahmet Carbajal MD Active DICLOFENAC SODIUM 50 MG TBEC 1 tablet by mouth four times daily PRN Pain 2015 DICLOFENAC SODIUM 36070865053 No Longer Active Ahmet Carbajal MD Active ADZENYS XR-ODT 6.3 MG ORAL TBED 1 tab po daily for ADHD AMPHETAMINE 44665748261 No Longer Active Ahmet Carbajal MD Active CHANTIX 1 MG TABS 1 twice a day to help quit smoking VARENICLINE TARTRATE 08786358010 No Longer Active Dipika Burgos MD Active CHANTIX STARTING MONTH EARNEST 0.5 MG X 11 & 1 MG X 42 TABS take as directed 2015 VARENICLINE TARTRATE 78059310216 No Longer Active Dipika Burgos MD Active TESSALON PERLES 100 MG CAP 1 to 2 tablets by mouth 3 times daily as needed for cough BENZONATATE 13766511888 No Longer Active 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 APRN Active IMITREX 50 MG ORAL TABS 0.5 po x 1 PRN Headache. May repeat dose x 1 in 2 hours if needed SUMATRIPTAN SUCCINATE 42627139398 Active Ahmet Carbajal MD Active HYDROCODONE-ACETAMINOPHEN 5-325 MG TABS 1 to 2 four times a day as needed for pain use until can be seen by specialist HYDROCODONE- ACETAMINOPHEN 30467186636 No Longer Active Vishal Hui MD Active PROAIR HFA 108 (90 BASE) MCG/ACT AERS 2 puffs four times a day as needed 2015 ALBUTEROL SULFATE 70699583256 No Longer Active Vishal Hui MD Active PREDNISONE 20 MG TABS 2 daily for 5 days then 1 daily for 5 days PREDNISONE 72890714590 No Longer Active Vishal Hui MD Active ZITHROMAX Z-EARNEST 250 MG TABS 2 today and then 1 daily for 4 days AZITHROMYCIN 13744549377 No Longer Active Vishal Hui MD Active DICLOFENAC POTASSIUM TABS Take 1 tablet twice a day (pt. is not sure of the dose.) DICLOFENAC POTASSIUM TABS 75689000883 No Longer Active Vishal Hui MD Active VERAPAMIL HCL ER 120 MG ORAL CR-TABS Take 1 tablet by mouth twice a day. VERAPAMIL HCL 76725621635 Active Vishal Hui MD Active FLAGYL 500 MG TAB 1 tablet by mouth bid METRONIDAZOLE 36027124450 No Longer Active Vishal Hui MD Active FLUTICASONE PROPIONATE 50 MCG/ACT SUSP 2 sprays each nostril daily before bed. FLUTICASONE PROPIONATE 22962479231 Active Fabiola Johnson APRN Active VALIUM 5 MG TAB Take 1-2 tablets daily DIAZEPAM 59925628815 No Longer Active Fabiola Johnson APRN Active METOPROLOL TARTRATE 25 MG ORAL TABS 1/2 tablet twice daily for heart rate and blood pressure METOPROLOL TARTRATE 34427321353 No Longer Active Fabiola Johnson APRN Active MIRALAX ORAL POWD 17GMS DAILY IN WATER POLYETHYLENE GLYCOL 3350 00476369476 Active TAMARA Casey Active MIRALAX PACK 1 po qd PRN Constipation POLYETHYLENE GLYCOL 3350 53424968985 No Longer Active Ahmet Carbajal MD Active MINIPRESS 2 MG CAPS 4 cap po at night PRAZOSIN HCL 28116992128 No Longer Active Ahmet Carbajal MD Active PIROXICAM 20 MG CAPS 1 cap po qd PRN Pain PIROXICAM 41102032735 No Longer Active Ahmet Carbajal MD Active TRAMADOL HCL 50 MG TABS 1-2 po TID PRN Pain TRAMADOL HCL 01427173830 No Longer Active Ahmet Carbajal MD Active METOPROLOL TARTRATE 50 MG TAB 1 po bid METOPROLOL TARTRATE 51204518451 No Longer Active Ahmet Carbajal MD Active ABILIFY 15 MG ORAL TABS 1 tab daily ARIPIPRAZOLE 43435182408 No Longer Active Ahmet Carbajal MD Active PROZAC 20 MG ORAL CAPS 1 tab daily FLUOXETINE HCL 07336762832 No Longer Active Ahmet Carbajal MD Active AMBIEN 5 MG ORAL TABS 1 tab at bedtime ZOLPIDEM TARTRATE 56602825255 No Longer Active Ahmet Carbajal MD Active PREDNISONE 20 MG TAB 2 tabs daily for 4 days, 1 tab daily for 4 days, 1/2 tab daily for 4 days PREDNISONE 36651814345 No Longer Active Ahmet Carbajal MD Active KEFLEX 500 MG CAP 1 po TID x 10 days CEPHALEXIN 10107826384 No Longer Active Vishal Hui MD Active SAPHRIS 5 MG SUBL 1 po bid ASENAPINE MALEATE 52702436300 No Longer Active 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 TURN OUT Active LATUDA 80 MG TABS Take one by mouth daily LURASIDONE HCL 46223280494 No Longer Active 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 APRN Active AMLODIPINE BESYLATE 5 MG TABS 1 tablet by mouth daily AMLODIPINE BESYLATE 28586173641 No Longer Active Pacooral Martínez APRN Active AMITRIPTYLINE HCL 100 MG TAB one at hs AMITRIPTYLINE HCL 25553033803 No Longer Active Vishal Hui MD Active TRAZODONE HCL 100 MG TAB take 1 at bedtime TRAZODONE HCL 66888348390 No Longer Active Vishal Hui MD Active VYVANSE 40 MG CAPS 1 daily, LISDEXAMFETAMINE DIMESYLATE 63331322373 No Longer Active Vishal Hui MD Active IBUPROFEN 600 MG TAB 1 po TID PRN IBUPROFEN 52424774492 No Longer Active Vishal Hui MD Active PROZAC 20 MG CAP Take one by mouth daily FLUOXETINE HCL 88422678942 No Longer Active Vishal Hui MD Active ZOFRAN 4 MG TABS 1 po q6hr PRN Nausea ONDANSETRON HCL Active Vishal Hui MD Active BACTRIM DS 800-160 MG TABS 1 pill by mouth twice daily SULFAMETHOXAZOLE-TRIMETHOPRIM 57631532816 No Longer Active Sahara Rodriguez MD PhD Active DIFLUCAN 150 MG TAB 1 tablet by mouth daily FLUCONAZOLE 59320503650 No Longer Active Vishal Hui MD Active TIZANIDINE HCL 4 MG TABS 1 po q6hr PRN Muscle Spasm/Back Pain TIZANIDINE HCL 91590021304 Active Vishal Hui MD Active CLINDAMYCIN HCL 150 MG CAPS 1 four times a day CLINDAMYCIN HCL 07911130995 No Longer Active Neeraj Collins MD Active KEFLEX 500 MG ORAL CAPS 1 cap QID by mouth CEPHALEXIN 20148554490 No Longer Active Neeraj Collnis MD Active DIFLUCAN 150 MG TABS 1 pill every other day x 2 doses FLUCONAZOLE 70329138667 No Longer Active Sahara Rodriguez MD PhD Active MELATONIN 3 MG CAPS 2 po q hs MELATONIN 15198022392 No Longer Active Sahara Rodriguez MD PhD Active MULTIVITAMINS CAPS Take one by mouth daily MULTIPLE VITAMIN 04654481119 No Longer Active Sahara Rodriguez MD PhD Active BACTRIM DS 800-160 MG TAB 1 tab by mouth twice daily TRIMETHOPRIM-SULFAMETHOXAZOLE 41376645951 No Longer Active Sahara Rodriguez MD PhD Active [facility] PROBIOTIC ORAL CHEW 2 daily po PROBIOTIC PRODUCT 21392310727 No Longer Active Sahara Rodriguez MD PhD Active BACTRIM DS 800-160 MG TABS 1 po BID x 7 days SULFAMETHOXAZOLE-TRIMETHOPRIM 59752398241 No Longer Active Vishal Hui MD Active CHANTIX STARTING MONTH EARNEST 0.5 MG X 11 & 1 MG X 42 TABS 0.5mg daily for 3 days , then 0.5mg BID for 4 days, then 1mg BID VARENICLINE TARTRATE 35492095368 No Longer Active TAMARA Gray Active VERAPAMIL HCL CR 120 MG TAB CR 1 po bid VERAPAMIL HCL 02490428335 No Longer Active Vishal Hiu MD Active METOPROLOL SUCCINATE 50 MG TB24 1 tablet by mouth daily METOPROLOL SUCCINATE 12999798080 No Longer Active Vishal Hui MD Active SAPHRIS 10 MG SUBL 1 tab po bid ASENAPINE MALEATE 94134322135 No Longer Active Vishal Hui MD Active LISINOPRIL 20 MG TABS 1 tab po qd LISINOPRIL 56594744069 No Longer Active Vishal Hui MD Active LATUDA 20 MG TABS Take one by mouth daily LURASIDONE HCL 62207227951 No Longer Active Vishal Hui MD Active TRAZODONE HCL 50 MG TABS 1/2 tab po qd prn for anxiety TRAZODONE HCL 30308392069 No Longer Active Vishal Hui MD Active OMEPRAZOLE 20 MG TBEC 1 po q a.m. 30min prior to first food intake OMEPRAZOLE 89705859528 Active Vishal Hui MD Active RANITIDINE HCL 150 MG CAPS 1 twice a day RANITIDINE HCL 23825475235 Active Luigi Messilebron NORIEGA Active LINZESS 290 MCG CAPS Take one by mouth daily LINACLOTIDE 78058150219 No Longer Active Vishal Hui MD Active SAPHRIS 5 MG SUBL 1 tab po qd ASENAPINE MALEATE 79625151052 No Longer Active Vishal Hui MD Active ZALEPLON 10 MG CAPS 1 cap po every other night ZALEPLON 99249561975 No Longer Active Vishal Hui MD Active LYRICA 50 MG CAPS 1 tab po TID PREGABALIN 76537481432 No Longer Active Vishal Hui MD Active LORATADINE 10 MG TABS 1 tab po qd LORATADINE 30349823554 No Longer Active Vishal Hui MD Active VERAPAMIL HCL ER 180 MG CR-TABS 1 tab po bid VERAPAMIL HCL 50048131723 No Longer Active Vishal Hui MD Active MIRALAX POWD 1 capfull once daily POLYETHYLENE GLYCOL 3350 55149473444 No Longer Active Vishal Hui MD Active PREDNISONE 20 MG TABS 1 tab po qd PREDNISONE 44012143174 No Longer Active Renzo Thornton DO Active LEVOFLOXACIN 500 MG TABS 1 tab po qd LEVOFLOXACIN 82254845595 No Longer Active Renzo Thornton DO Active BUSPIRONE HCL 15 MG TABS 1 tab po TID BUSPIRONE HCL 51311132103 No Longer Active Renzo Thornton DO Active BENZTROPINE MESYLATE 1 MG TABS 1 tab po qd BENZTROPINE MESYLATE 79221986022 No Longer Active Renzo Thortnon DO Active ATENOLOL 25 MG TABS 1 tab po qd ATENOLOL 86982739176 No Longer Active Renzo Thornton DO Active ESCITALOPRAM OXALATE 20 MG TABS 1 tab po qd ESCITALOPRAM OXALATE 31270230501 No Longer Active Renzo Thornton DO Active ADVAIR DISKUS 250-50 MCG/DOSE AEPB 1 puff BID FLUTICASONE-SALMETEROL 10064715646 No Longer Active Renzo Thornton DO Active PREDNISONE 20 MG TAB 2 tabs daily for 3 days, 1 tab daily for 3 days, 1/2 tab daily for 2 days PREDNISONE 71130781311 No Longer Active Vsihal Hui MD Active CEFDINIR 300 MG CAPS by mouth twice a day CEFDINIR 11711238433 No Longer Active Vishal Hui MD Active LANSOPRAZOLE 30 MG CPDR 1 cap po qd LANSOPRAZOLE 30879843997 No Longer Active Vishal Hui MD Active BACLOFEN 20 MG TABS 1 tab po tid BACLOFEN 78959144302 No Longer Active Vishal Hui MD Active ADVAIR DISKUS 250-50 MCG/DOSE AEPB 1 puff BID ADVAIR DISKUS 250-50 MCG/DOSE AEPB FLUTICASONE-SALMETEROL Inactive ESCITALOPRAM OXALATE 20 MG TABS 1 tab po qd ESCITALOPRAM OXALATE 20 MG TABS 612651 ESCITALOPRAM OXALATE Inactive ATENOLOL 25 MG TABS 1 tab po qd ATENOLOL 25 MG TABS 935452 ATENOLOL Inactive BENZTROPINE MESYLATE 1 MG TABS 1 tab po qd BENZTROPINE MESYLATE 1 MG TABS 233428 BENZTROPINE MESYLATE Inactive BUSPIRONE HCL 15 MG TABS 1 tab po TID BUSPIRONE HCL 15 MG TABS 813404 BUSPIRONE HCL Inactive LEVOFLOXACIN 500 MG TABS 1 tab po qd LEVOFLOXACIN 500 MG TABS 489302 LEVOFLOXACIN Inactive PREDNISONE 20 MG TABS 1 tab po qd PREDNISONE 20 MG TABS 929389 PREDNISONE Inactive MIRALAX POWD 1 capfull once daily MIRALAX POWD 253150 POLYETHYLENE GLYCOL 3350 Inactive VERAPAMIL HCL ER 180 MG CR-TABS 1 tab po bid VERAPAMIL HCL ER 180 MG CR-TABS VERAPAMIL HCL Inactive LORATADINE 10 MG TABS 1 tab po qd LORATADINE 10 MG TABS 665324 LORATADINE Inactive LYRICA 50 MG CAPS 1 tab po TID LYRICA 50 MG CAPS PREGABALIN Inactive ZALEPLON 10 MG CAPS 1 cap po every other night ZALEPLON 10 MG CAPS 058488 ZALEPLON Inactive SAPHRIS 5 MG SUBL 1 tab po qd SAPHRIS 5 MG SUBL ASENAPINE MALEATE Inactive TRAZODONE HCL 50 MG TABS 1/2 tab po qd prn for anxiety TRAZODONE HCL 50 MG TABS 432104 TRAZODONE HCL Inactive LATUDA 20 MG TABS Take one by mouth daily LATUDA 20 MG TABS LURASIDONE HCL Inactive LISINOPRIL 20 MG TABS 1 tab po qd LISINOPRIL 20 MG TABS 096970 LISINOPRIL Inactive SAPHRIS 10 MG SUBL 1 [...] twice daily BACTRIM DS 800-160 MG TAB 380020 TRIMETHOPRIM-SULFAMETHOXAZOLE Inactive MULTIVITAMINS CAPS Take one by mouth daily MULTIVITAMINS CAPS MULTIPLE VITAMIN Inactive MELATONIN 3 MG CAPS 2 po q hs MELATONIN 3 MG CAPS 19950526 MELATONIN Inactive KEFLEX 500 MG ORAL CAPS 1 cap QID by mouth KEFLEX 500 MG ORAL CAPS 683426 CEPHALEXIN Inactive CLINDAMYCIN HCL 150 MG CAPS 1 four times a day CLINDAMYCIN HCL 150 MG CAPS 327790 CLINDAMYCIN HCL Inactive DIFLUCAN 150 MG TAB 1 tablet by mouth daily DIFLUCAN 150 MG TAB 648030 FLUCONAZOLE Inactive PROZAC 20 MG CAP Take one by mouth daily PROZAC 20 MG CAP 093016 FLUOXETINE HCL Inactive IBUPROFEN 600 MG TAB 1 po TID PRN IBUPROFEN 600 MG TAB 819671 IBUPROFEN Inactive VYVANSE 40 MG CAPS 1 daily, VYVANSE 40 MG CAPS LISDEXAMFETAMINE DIMESYLATE Inactive TRAZODONE HCL 100 MG TAB take 1 at bedtime TRAZODONE HCL 100 MG TAB 117959 TRAZODONE HCL Inactive AMITRIPTYLINE HCL 100 MG TAB one at hs AMITRIPTYLINE HCL 100 MG TAB 658466 AMITRIPTYLINE HCL Inactive AMLODIPINE BESYLATE 5 MG TABS 1 tablet by mouth daily AMLODIPINE BESYLATE 5 MG TABS 595797 AMLODIPINE BESYLATE Inactive LATUDA 80 MG TABS Take one by mouth daily LATUDA 80 MG TABS LURASIDONE HCL Inactive SAPHRIS 5 MG SUBL 1 po bid SAPHRIS 5 MG SUBL ASENAPINE MALEATE Inactive PREDNISONE 20 MG TAB 2 tabs daily for 4 days, 1 tab daily for 4 days, 1/2 tab daily for 4 days PREDNISONE 20 MG TAB 115655 PREDNISONE Inactive AMBIEN 5 MG ORAL TABS 1 tab at bedtime AMBIEN 5 MG ORAL TABS 082267 ZOLPIDEM TARTRATE Inactive PROZAC 20 MG ORAL CAPS 1 tab daily PROZAC 20 MG ORAL CAPS 091716 FLUOXETINE HCL Inactive ABILIFY 15 MG ORAL TABS 1 tab daily ABILIFY 15 MG ORAL TABS 307641 ARIPIPRAZOLE Inactive METOPROLOL TARTRATE 50 MG TAB 1 po bid METOPROLOL TARTRATE 50 MG TAB 277631 METOPROLOL TARTRATE Inactive TRAMADOL HCL 50 MG TABS 1-2 po TID PRN Pain TRAMADOL HCL 50 MG TABS 435334 TRAMADOL HCL Inactive PIROXICAM 20 MG CAPS 1 cap po qd PRN Pain PIROXICAM 20 MG CAPS 448085 PIROXICAM Inactive MINIPRESS 2 MG CAPS 4 cap po at night MINIPRESS 2 MG CAPS 672604 PRAZOSIN HCL Inactive MIRALAX PACK 1 po qd PRN Constipation MIRALAX PACK 344288 POLYETHYLENE GLYCOL 3350 Inactive METOPROLOL TARTRATE 25 MG ORAL TABS 1/2 tablet twice daily for heart rate and blood pressure METOPROLOL TARTRATE 25 MG ORAL TABS 029619 METOPROLOL TARTRATE Inactive VALIUM 5 MG TAB Take 1-2 tablets daily VALIUM 5 MG TAB 077990 DIAZEPAM Inactive FLAGYL 500 MG TAB 1 tablet by mouth bid FLAGYL 500 MG TAB 655338 METRONIDAZOLE Inactive DICLOFENAC POTASSIUM TABS Take 1 tablet twice a day (pt. is not sure of the dose.) DICLOFENAC POTASSIUM TABS DICLOFENAC POTASSIUM TABS Inactive ZITHROMAX Z-EARNEST 250 MG TABS 2 today and then 1 daily for 4 days ZITHROMAX Z-EARNEST 250 MG TABS 5261822 AZITHROMYCIN Inactive PREDNISONE 20 MG TABS 2 daily for 5 days then 1 daily for 5 days PREDNISONE 20 MG TABS 806245 PREDNISONE Inactive PROAIR HFA 108 (90 BASE) MCG/ACT AERS 2 puffs four times a day as needed 2015 PROAIR HFA 108 (90 BASE) MCG/ACT AERS ALBUTEROL SULFATE Inactive HYDROCODONE-ACETAMINOPHEN 5-325 MG TABS 1 to 2 four times a day as needed for pain use until can be seen by specialist HYDROCODONE- ACETAMINOPHEN 5-325 MG TABS 651349 HYDROCODONE-ACETAMINOPHEN Inactive TESSALON PERLES 100 MG CAP 1 to 2 tablets by mouth 3 times daily as needed for cough TESSALON PERLES 100 MG CAP 968483 BENZONATATE Inactive CHANTIX STARTING MONTH EARNEST 0.5 [...] Pain 2015 DICLOFENAC SODIUM 50 MG TBEC 426000 DICLOFENAC SODIUM Inactive TOPAMAX 50 MG ORAL TABS 1 tab twice daily TOPAMAX 50 MG ORAL TABS 562038 TOPIRAMATE Inactive VIIBRYD 10 MG ORAL TABS Take 1 tablet once a day VIIBRYD 10 MG ORAL TABS VILAZODONE HCL Inactive LEVOFLOXACIN 500 MG ORAL TABS po daily LEVOFLOXACIN 500 MG ORAL TABS 773163 LEVOFLOXACIN Inactive METHYLPREDNISOLONE 4 MG ORAL TABS po daily METHYLPREDNISOLONE 4 MG ORAL TABS 466036 METHYLPREDNISOLONE Inactive OXYCODONE HCL ER 10 MG ORAL T12A 1/2 tab by mouth every 4 hours prn OXYCODONE HCL ER 10 MG ORAL T12A OXYCODONE HCL Inactive FLAGYL 500 MG TAB 1 tablet by mouth bid FLAGYL 500 MG TAB 767787 METRONIDAZOLE Inactive MONISTAT 7 COMBO PACK WOODROW 100 & 2 MG-% (9GM) VAG KIT 1 applicatorful per vagina q pm x 7 MONISTAT 7 COMBO PACK WOODROW 100 & 2 MG-% (9GM) VAG KIT MICONAZOLE NITRATE Inactive BACTRIM DS 800-160 MG TABS 1 twice a day BACTRIM DS 800-160 MG TABS 711060 SULFAMETHOXAZOLE-TRIMETHOPRIM Inactive TRAMADOL HCL 50 MG TABS 1/2-1 tab TID PRN TRAMADOL HCL 50 MG TABS 468422 TRAMADOL HCL Inactive ABILIFY MAINTENA 400 MG IM SUSR 400mg injection every 26 days ABILIFY MAINTENA 400 MG IM SUSR ARIPIPRAZOLE Inactive KLONOPIN 1 MG ORAL TABS 1 tab po TID KLONOPIN 1 MG ORAL TABS 912174 CLONAZEPAM Inactive ADVAIR DISKUS 250-50 MCG/DOSE INH AEPB 1 puff twice a day for asthma ADVAIR DISKUS 250-50 MCG/DOSE INH AEPB FLUTICASONE- SALMETEROL Inactive BENADRYL 25 MG CAP 4 po at bedtime for insomnia BENADRYL 25 MG CAP DIPHENHYDRAMINE HCL Inactive PREDNISONE 20 MG TABS 2 daily for 5 days then 1 daily for 5 days PREDNISONE 20 MG TABS 648009 PREDNISONE Inactive HYDROCODONE-ACETAMINOPHEN 5-325 MG ORAL TABS 1 tab two times a day HYDROCODONE-ACETAMINOPHEN 5-325 MG ORAL TABS 598352 HYDROCODONE-ACETAMINOPHEN Inactive CEFDINIR 300 MG CAPS by mouth twice a day CEFDINIR 300 MG CAPS 927629 CEFDINIR Inactive PREDNISONE 20 MG TAB 2 tabs daily for 3 days, 1 tab daily for 3 days, 1/2 tab daily for 2 days PREDNISONE 20 MG TAB 204048 PREDNISONE Inactive BACTRIM DS 800-160 MG TABS 1 po BID x 7 days BACTRIM DS 800-160 MG TABS 214123 SULFAMETHOXAZOLE-TRIMETHOPRIM Inactive DIFLUCAN 150 MG TABS 1 pill every other day x 2 doses DIFLUCAN 150 MG TABS 547374 FLUCONAZOLE Inactive BACTRIM DS 800-160 MG TABS 1 pill by mouth twice daily BACTRIM DS 800-160 MG TABS 298041 SULFAMETHOXAZOLE-TRIMETHOPRIM Inactive KEFLEX 500 MG CAP 1 po TID x 10 days KEFLEX 500 MG CAP 202191 CEPHALEXIN Inactive Advance Directives Directive Description Start Date DISCUSSED WITH PATIENT -- NO DECISION MADE Vital Signs Date Name Value Unit Range Description blood pressure, diastolic - 8462-4 96 mm[Hg] [...] 369 10^3/MM^3 10*3/mm3 142-424 Lab Report: Chlamydia/GC APTIMA/[id number] - Lab chlamydia DNA probe NOT DETECTED NOT DETECTED Lab Report: Chlamydia/GC APTIMA/[id number] - Microbiology Neisseria gonorrhoeae DNA probe NOT DETECTED NOT DETECTED Lab Report: Chlamydia/GC APTIMA/02473, Urinalysis, Complete, with Reflex ... - Lab chlamydia DNA probe NOT DETECTED NOT DETECTED Lab Report: Chlamydia/GC APTIMA/[id number], Urinalysis, Complete, with Reflex ... - Microbiology Neisseria gonorrhoeae DNA probe NOT DETECTED NOT DETECTED Lab Report: Chlamydia/GC APTIMA/02575, Urinalysis, Complete, with Reflex ... - Urinalysis microalbumin/total urine volume 2 mg/L Units converted. See lab report for original value. microalbumin/creatinine ratio, urine 9 MCG/MG CREAT mg/L <30 Lab Report: Comp. Metabolic Panel - Chemistry blood glucose 80 mg/dL 65-110 chloride, serum 103 mmol/L 98-107 potassium, serum 5.0 mmol/L 3.5-5.2 carbon dioxide, venous blood 33.7 mmol/L 21.0-32.0 sodium, serum 140 mmol/L 271-063 1031/06/08 sodium, serum 142 mmol/L 960-159 2686/06/08 carbon dioxide, venous blood 27.6 mmol/L 21.0-32.0 potassium, serum 4.0 mmol/L 3.5-5.2 chloride, serum 105 mmol/L 98-107 blood glucose 95 mg/dL 65-110 urea nitrogen, blood 8 mg/dL 7-18 creatinine, serum 0.75 mg/dL 0.55-1.30 alanine aminotransferase (SGPT), serum 49 U/L -78 aspartate aminotransferase (SGOT), serum 28 U/L 15-37 calcium, serum 9.4 mg/dL 8.5-10.1 bilirubin, serum, total 0.30 mg/dL 0.00-1.00 urea nitrogen, blood 13 mg/dL 7-18 creatinine, [...] mg/dL Encounters Code Encounter Date Provider Facility CPT-53171 Level 4 Est. Patient 10:20:54 INFRASTRUCTURE SOLUTIONS ARCHITECT Suzan Boo [facility] CPT-10162 Level 3 Est. Patient 11:47:37 INFRASTRUCTURE SOLUTIONS ARCHITECT Ahmet Carbajal MD [facility] CPT-91941 Level 3 Est. Patient 10:40:11 INFRASTRUCTURE SOLUTIONS ARCHITECT Ahmet Carbajal MD [facility] CPT-26669 Level 3 Est. Patient 15:07:06 INFRASTRUCTURE SOLUTIONS ARCHITECT Neeraj Collins MD [facility] CPT-42932 Level 4 Est. Patient 14:45:00 INFRASTRUCTURE SOLUTIONS ARCHITECT Ahmet Carbajal MD [facility] CPT-86118 Level 3 Est. Patient 13:59:59 CDT 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 [facility] CPT-82967 Level 3 Est. Patient 18:18:53 CDT Neeraj Collins MD [facility] CPT-38100 Level 3 Est. Patient 15:50:44 CDT Vishal Hui MD [facility] CPT-98312 Level 3 Est. Patient 11:36:17 CDT Ahmet Carbajal MD [facility] CPT-56751 Level 3 Est. Patient 13:29:16 CDT Vishal Hui MD [facility] CPT-00833 Level 3 Est. Patient 14:27:52 CDT Neeraj Collins MD [facility] CPT-87832 Level 3 Est. Patient 08:56:03 CDT 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 [facility] CPT-64451 Level 4 Est. Patient 12:11:48 CDT Fabiola Johnson [facility] CPT-84836 Level 3 New Patient 16:53:37 CDT Albert Caldera MD [facility] CPT-47532 Level 3 Est. Patient 11:25:49 CDT Renzo Thornton DO [facility] CPT-57946 Level 3 Est. Patient 15:22:01 CDT Ahmet Carbajal MD [facility] CPT-40449 Level 4 Est. Patient 09:00:51 INFRASTRUCTURE SOLUTIONS ARCHITECT Vishal Hui MD [facility] CPT-85794 Level 3 Est. Patient 11:37:33 INFRASTRUCTURE SOLUTIONS ARCHITECT Vishal Hui MD [facility] CPT-85415 Level 3 Est. Patient 08:41:09 INFRASTRUCTURE SOLUTIONS ARCHITECT Vishal Hui MD [facility] CPT-79234 Level 4 Est. Patient 10:19:35 INFRASTRUCTURE SOLUTIONS ARCHITECT Vishal Hui MD [facility] CPT-09885 Level 3 Est. Patient 13:35:45 CDT Vishal Hui MD [facility] CPT-58239 Level 4 Est. Patient 10:08:37 CDT Vishal Hui MD [facility] CPT-75124 Level 3 Est. Patient 11:22:10 CDT Vishal Hui MD [facility] CPT-06659 Level 3 Est. Patient 11:03:32 CDT Sahara Rodriguez MD [facility]-00853 Level 3 Est. Patient 09:41:35 CDT Vishal Hui MD [facility] CPT-62763 Level 3 Est. Patient 12:00:41 CDT Neeraj Collins MD [facility] CPT-43594 Level 3 Est. Patient 09:16:24 CDT Vishal Hui MD [facility] CPT-06733 Level 4 Est. Patient 13:59:09 CDT Neeraj Collins MD [facility] CPT-23185 Level 3 Est. Patient 15:19:43 CDT Renzo Thornton DO [facility] CPT-71088 Level 3 Est. Patient 18:10:26 CDT Sahara Rodriguez MD [facility] CPT-39111 Level 3 Est. Patient 14:49:50 CDT Vishal Hui MD [facility] CPT-65112 Level 4 Est. Patient 18:41:46 CDT Neeraj Collins MD [facility] CPT-78335 Level 4 Est. Patient 09:18:38 INFRASTRUCTURE SOLUTIONS ARCHITECT Vishal Hui MD [facility] CPT-30731 Level 3 Est. Patient 14:43:55 INFRASTRUCTURE SOLUTIONS ARCHITECT Vishal Hui MD [facility] CPT-26325 Level 3 Est. Patient 15:26:33 INFRASTRUCTURE SOLUTIONS ARCHITECT Sahara Rodriguez MD [facility] CPT-27088 Level 3 Est. Patient 10:32:14 INFRASTRUCTURE SOLUTIONS ARCHITECT Vishal Hui MD [facility] CPT-14498 Level 3 Est. Patient 15:12:52 INFRASTRUCTURE SOLUTIONS ARCHITECT Vishal Hui MD [facility] CPT-93315 Level 4 Est. Patient 09:19:27 CDT Vishal Hui MD [facility] CPT-91362 Level 3 Est. Patient 15:53:00 CDT Renzo Barajas [facility] CPT-23010 Level 3 Est. Patient 15:50:30 CDT Renzo Thornton [facility] CPT-55506 Level 3 Est. Patient 16:55:24 CDT Vishal Hui MD [facility] Procedures Code Procedure Name Date Entry Date Standard Description CPT-G0439 [facility] Annual Wellness Exam 09:30:58 INFRASTRUCT[employer] SOLUTIONS ARCHITECT CPT-80058 TSH - LAB USE ONLY 08:50:26 INFRASTRUCTURE SOLUT[employer] ARCHITECT CPT-37869 CBC - LAB USE ONLY 08:50:26 INFRASTRUCTURE SOLUTIONS ARCHITECT CPT-72079 Venipuncture Draw Fee 08:50:26 INFRASTRUCTURE SOLUTIONS ARCHITECT CPT-18521 Abx/Therapy Injection 17:34:30 INFRASTRU[employer]URE SOLUT[employer] ARCHITECT CPT-20767 Nexplanon Removal with Reinsertion 14:09:32 CDT CPT-J7307 Nexplanon (Implant) 14:09:32 CDT CPT-OV Office Visit 14:09:32 CDT CPT-55267 UA w micro - LAB USE ONLY 16:21:13 CDT CPT-58439 [place] - LAB USE ONLY 16:21:13 CDT CPT-98277 First Vx - Ix admin for Medicare patients 14:37:47 CDT CPT-12119 Fluzone Preservative Free Intramuscular Suspension 14:37 :47 CDT CPT-02589 Abx/Therapy Injection 13:54:22 CDT CPT-05291 Abx/Therapy Injection 08:47:09 CDT CPT-39138 Abx/Therapy Injection 13:29:56 CDT CPT-44114 Abx/Therapy Injection 08:36:16 CDT CPT-32310 [place] - LAB USE ONLY 17:44:58 CDT CPT-39953 UA w micro - LAB USE ONLY 17:44:58 CDT CPT-80106 CMP - LAB USE ONLY 17:44:58 CDT CPT-89425 Venipuncture Draw Fee 17:44:58 CDT CPT-35179 Cervical Min 4V - XRAY USE ONLY 09:01:40 CDT CPT-69166 Chest 2V Frontal and Lat - XRAY USE ONLY 11:06:31 CDT CPT-89509 EKG Trac and Interp - XRAY USE ONLY 11:31:43 CDT 08/26 CPT-J3420 Vitamin B12 1000mcg (Cyanocobalamin) 08:10:26 INFRASTRUCTURE SOLUTIONS ARCHITECT 04/12 CPT-36258 Abx/Therapy Injection 08:10:26 INFRASTRUCTURE SOLUTIONS ARCHITECT CPT-G0438 Initial Annual Wellness Exam 19:01:01 INFRASTRUCTURE SOLUTIONS ARCHITECT CPT-J3420 Vitamin B12 1000mcg (Cyanocobalamin) 16:57:46 CDT 08/14 CPT-85459 Recombivax HB Injection Suspension 5 MCG/0.5ML 08:37:50 INFRASTRUCTURE SOLUTIONS ARCHITECT CPT-03963 Immunization Single Admin 08:37:50 INFRASTRUCTURE SOLUTIONS ARCHITECT CPT-J3420 Vitamin B12 1000mcg (Cyanocobalamin) 08:32:16 INFRASTRUCTURE SOLUTIONS ARCHITECT 03/11 CPT-94730 Abx/Therapy Injection 08:32:16 INFRASTRUCTURE SOLUTIONS ARCHITECT CPT-93092 Chest 2V Frontal and Lat 11:46:38 INFRASTRUCTURE SOLUTIONS ARCHITECT CPT-33906 Venipuncture Draw Fee 09:12:45 INFRASTRUCTURE SOLUTIONS ARCHITECT CPT-J3420 Vitamin B12 1000mcg (Cyanocobalamin) 08:50:15 INFRASTRUCTURE SOLUTIONS ARCHITECT 02/08 CPT-27276 Abx/Therapy Injection 08:50:15 INFRASTRUCTURE SOLUTIONS ARCHITECT CPT-Cryo Cryotherapy 10:19:35 INFRASTRUCTURE SOLUTIONS ARCHITECT CPT-000 Give Appropriate Flu Vaccine 09:22:16 CDT CPT-J3420 Vitamin B12 1000mcg (Cyanocobalamin) 19:08:57 CDT 01/11 CPT-29853 Abx/Therapy Injection 19:08:57 CDT CPT-J3420 Vitamin B12 1000mcg (Cyanocobalamin) 08:19:08 CDT 12/11 CPT-45327 Abx/Therapy Injection 08:19:08 CDT CPT-J3420 Vitamin B12 1000mcg (Cyanocobalamin) 14:48:00 CDT 11/09 CPT-64637 Abx/Therapy Injection 14:47:59 CDT CPT-J3420 Vitamin B12 1000mcg (Cyanocobalamin) 08:34:04 CDT 10/09 CPT-82719 Abx/Therapy Injection 08:34:04 CDT CPT-J3420 Vitamin B12 1000mcg (Cyanocobalamin) 09:18:52 CDT 09/11 CPT-16705 Abx/Therapy Injection 09:18:52 CDT CPT-J3420 Vitamin B12 1000mcg (Cyanocobalamin) 08:35:44 CDT 09/04 CPT-80210 Abx/Therapy Injection 08:35:44 CDT CPT-74646 Immunization Single Admin 11:07:16 CDT CPT-45298 Hepatitis B adult IM 11:07:16 CDT CPT-J3420 Vitamin B12 1000mcg (Cyanocobalamin) 11:00:49 CDT 08/28 CPT-J1040 Depo Medrol 80 mg (Methyl Prednisolone Acetate) 11:00: 49 CDT CPT-65790 Abx/Therapy Injection 11:00:49 CDT CPT-J1040 Depo Medrol 80 mg (Methyl Prednisolone Acetate) 09:16: 23 CDT CPT-J3420 Vitamin B12 1000mcg (Cyanocobalamin) 08:27:05 CDT 08/20 CPT-13671 Abx/Therapy Injection 08:27:05 CDT CPT-18981 Recombivax HB Injection Suspension 5 MCG/0.5ML 10:00:41 CDT CPT-44672 Administration single or combination vaccine inc oral 10 :00:41 CDT CPT-26643 Sono transvag pelvis non OB uterus ovaries cervix 16:36: 57 CDT CPT-54172 LS spine comp w obliq 09:50:55 [employer] ARCHITECT CPT-44057 Abd compl w upright 09:50:55 INFRASTRUCTURE SOLUTIONS ARCHITECT CPT-J1100 Decadron 4mg (Dexamethasone) 15:51:24 INFRASTRUCTURE SOLUTIONS ARCHITECT CPT-J1030 Depo Medrol 40 mg (Methyl Prednisolone Acetate) 15:51: 24 INFRASTRUCTURE SOLUTIONS ARCHITECT CPT-41539 Abx/Therapy Injection 15:51:24 INFRASTRUCTURE SOLUTIONS ARCHITECT CPT-J1100 Decadron 4mg (Dexamethasone) 15:26:33 INFRASTRUCTURE SOLUTIONS ARCHITECT CPT-J1030 Depo Medrol 40 mg (Methyl Prednisolone Acetate) 15:26: 33 INFRASTRUCTURE SOLUTIONS ARCHITECT CPT-11893 Sono retroperitoneal complete kidneys and bladder 17:15: 30 CDT CPT-40944 Abd compl w upright 16:09:25 CDT CPT-J1100 Decadron 8mg (Dexamethasone) 17:07:57 CDT CPT-47719 Abx/Therapy Injection 17:07:57 CDT CPT-J1100 Decadron 8mg (Dexamethasone) 16:55:24 CDT CPT-68001 Chest 2V Frontal and Lat 16:32:44 CDT
--- OUTSIDE RECORDS SUMMARY | 2016-11-04 11:27 | XMS REPORT | Clinical Summary ---
Author Author Admin, BRIELLEE Organization [employer] Address Unknown Phone Unavailable Allergies, Adverse Reactions, [...] Active Vishal Hui MD AMOXICILLIN Critical Active iVshal Hui MD Conditions or Problems Problem Name [...] sites G E R D 530.81 Resolved Visahl Hui MD Esophageal reflux Health screening V70.0 [...] sites Morbid obesity 278.01 Active Juliet Kimbrough SILVICULTURE FORESTER Morbid obesity 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 Active Juliet [...] breath Nocturnal hypoxia 799.02 Active Fabiola Johnson SILVICULTURE FORESTER Hypoxemia Neck pain 723.1 Resolved Vishal Hui [...] fibula Vaginal discharge 623.5 Active 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 SILVICULTURE FORESTER Leukorrhea, not specified as infective DYSURIA 788.1 [...] pain, acute ICD-786.50 Inactive Albert Caldera MD Shortness of breath ICD-786.05 Inactive Vishal Hui MD Neck pain ICD-723.1 Inactive Vishal Hui MD Vaginal discharge ICD-623.5 Inactive Vishal Hui MD Abdominal pain, right lower quadrant ICD-789.03 Inactive Vishal Hui MD Calf pain, left ICD-729.5 Inactive Vishal Hui MD Asthma, acute ICD-493.92 Inactive Vishal Hui MD Localized adiposity ICD-278.1 Inactive Vishal Hui MD Medication List Medication Instructions Start Date Stop Date Generic Name NDC Status Provider Patient Instruction TRAMADOL HCL 50 MG TABS 1/2-1 tab TID PRN TRAMADOL HCL 05055370752 Active Lynda Ninoska IMPLEMENTATION ADVISOR Active PROAIR HFA 108 (90 BASE) MCG/ACT AERS 2 puffs four times a day as needed 2015 ALBUTEROL SULFATE 58425114752 Active Ahmet Carbajal MD Active EQ NICOTINE 21 MG/24HR TRANS PT24 Apply daily to stop smoking NICOTINE 10753925767 Active Ahmet Carbajal MD Active BACTRIM DS 800-160 MG TABS 1 twice a day SULFAMETHOXAZOLE- TRIMETHOPRIM 10776543525 Active Ahmet Carbajal MD Active ADVAIR DISKUS 250-50 MCG/DOSE INH AEPB 1 puff twice a day for asthma FLUTICASONE-SALMETEROL 76601624806 Active Ahmet Carbajal MD Active MONISTAT 7 COMBO PACK WOODROW 100 & 2 MG-% (9GM) VAG KIT 1 applicatorful per vagina q pm x 7 MICONAZOLE NITRATE 52957096062 No Longer Active Ahmet Carbajal MD Active FLAGYL 500 MG TAB 1 tablet by mouth bid METRONIDAZOLE 36047981950 No Longer Active Ahmet Carbajal MD Active OXYCODONE HCL ER 10 MG ORAL T12A 1/2 tab by mouth every 4 hours prn OXYCODONE HCL 30295035422 No Longer Active Ahmet Carbajal MD Active METHYLPREDNISOLONE 4 MG ORAL TABS po daily METHYLPREDNISOLONE 90463316594 No Longer Active Ahmet Carbajal MD Active LEVOFLOXACIN 500 MG ORAL TABS po daily LEVOFLOXACIN 88896953986 No Longer Active Ahmet Carbajal MD Active VIIBRYD 10 MG ORAL TABS Take 1 tablet once a day VILAZODONE HCL 39916585319 No Longer Active Ahmet Carbajal MD Active TOPAMAX 50 MG ORAL TABS 1 tab twice daily TOPIRAMATE 33756279360 No Longer Active Ahmet Carbajal MD Active DICLOFENAC SODIUM 50 MG TBEC 1 tablet by mouth four times daily PRN Pain 2015 DICLOFENAC SODIUM 62944961205 No Longer Active Ahmet Carbajal MD Active ADZENYS XR-ODT 6.3 MG ORAL TBED 1 tab po daily for ADHD AMPHETAMINE 92981889715 No Longer Active Ahmet Carbajal MD Active CHANTIX 1 MG TABS 1 twice a day to help quit smoking VARENICLINE TARTRATE 64348808323 No Longer Active Dipika Burgos MD Active CHANTIX STARTING MONTH EARNEST 0.5 MG X 11 & 1 MG X 42 TABS take as directed 2015 VARENICLINE TARTRATE 16793294480 No Longer Active Dipika Burgos MD Active TESSALON PERLES 100 MG CAP 1 to 2 tablets by mouth 3 times daily as needed for cough BENZONATATE 04044314950 No Longer Active 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 SILVICULTURE FORESTER Active ABILIOMAR MAINTENA 400 MG IM SUSR 400mg injection every 26 days ARIPIPRAZOLE 04370696756 Active Silvia Casey IMPLEMENTATION ADVISOR Active IMITREX 50 MG ORAL TABS 0.5 po x 1 PRN Headache. May repeat dose x 1 in 2 hours if needed SUMATRIPTAN SUCCINATE 96951171507 Active Suzan Boo SILVICULTURE FORESTER Active HYDROCODONE-ACETAMINOPHEN 5-325 MG TABS 1 to 2 four times a day as needed for pain use until can be seen by specialist HYDROCODONE- ACETAMINOPHEN 64296265870 No Longer Active Vishal Hui MD Active PROAIR HFA 108 (90 BASE) MCG/ACT AERS 2 puffs four times a day as needed 2015 ALBUTEROL SULFATE 81910317381 No Longer Active Vishal Hui MD Active PREDNISONE 20 MG TABS 2 daily for 5 days then 1 daily for 5 days PREDNISONE 09533330176 No Longer Active Vishal Hui MD Active ZITHROMAX Z-EARNEST 250 MG TABS 2 today and then 1 daily for 4 days AZITHROMYCIN 32580043246 No Longer Active Vishal Hui MD Active DICLOFENAC POTASSIUM TABS Take 1 tablet twice a day (pt. is not sure of the dose.) DICLOFENAC POTASSIUM TABS 02554605048 No Longer Active Vishal Hui MD Active VERAPAMIL HCL ER 120 MG ORAL CR-TABS Take 1 tablet by mouth twice a day. VERAPAMIL HCL 29936342494 Active Vishal Hui MD Active FLAGYL 500 MG TAB 1 tablet by mouth bid METRONIDAZOLE 78720206786 No Longer Active Vishal Hui MD Active FLUTICASONE PROPIONATE 50 MCG/ACT SUSP 2 sprays each nostril daily before bed. FLUTICASONE PROPIONATE 50983097822 Active Fabiola Johnson APRN Active BENADRYL 25 MG CAP 4 po at bedtime for insomnia DIPHENHYDRAMINE HCL 48878542087 Active Fabiola Johnson APRN Active KLONOPIN 1 MG ORAL TABS 1 tab po TID CLONAZEPAM 67802198097 Active Fabiola Johnson APRN Active VALIUM 5 MG TAB Take 1-2 tablets daily DIAZEPAM 51361972661 No Longer Active Fabiola Johnson APRN Active METOPROLOL TARTRATE 25 MG ORAL TABS 1/2 tablet twice daily for heart rate and blood pressure METOPROLOL TARTRATE 09947455189 No Longer Active Fabiola Johnson APRN Active MIRALAX ORAL POWD 17GMS DAILY IN WATER POLYETHYLENE GLYCOL 3350 66970876853 Active Vishal Hui MD Active MIRALAX PACK 1 po qd PRN Constipation POLYETHYLENE GLYCOL 3350 85370191259 No Longer Active Ahmet Carbajal MD Active MINIPRESS 2 MG CAPS 4 cap po at night PRAZOSIN HCL 49767879982 No Longer Active Ahmet Carbajal MD Active PIROXICAM 20 MG CAPS 1 cap po qd PRN Pain PIROXICAM 63097670800 No Longer Active Ahmet Carbajal MD Active TRAMADOL HCL 50 MG TABS 1-2 po TID PRN Pain TRAMADOL HCL 84215914471 No Longer Active Ahmet Carbajal MD Active METOPROLOL TARTRATE 50 MG TAB 1 po bid METOPROLOL TARTRATE 01097393730 No Longer Active Ahmet Carbajal MD Active ABILIFY 15 MG ORAL TABS 1 tab daily ARIPIPRAZOLE 81475037314 No Longer Active Ahmet Carbajal MD Active PROZAC 20 MG ORAL CAPS 1 tab daily FLUOXETINE HCL 46188770215 No Longer Active Ahmet Carbajal MD Active AMBIEN 5 MG ORAL TABS 1 tab at bedtime ZOLPIDEM TARTRATE 76013798321 No Longer Active Ahmet Carbajal MD Active PREDNISONE 20 MG TAB 2 tabs daily for 4 days, 1 tab daily for 4 days, 1/2 tab daily for 4 days PREDNISONE 70764519989 No Longer Active Ahmet Carbajal MD Active KEFLEX 500 MG CAP 1 po TID x 10 days CEPHALEXIN 36597561326 No Longer Active Vishal Hui MD Active SAPHRIS 5 MG SUBL 1 po bid ASENAPINE MALEATE 47656450884 No Longer Active Tataina Mauricio NORIEGA Active LATUDA 80 MG TABS Take one by mouth daily LURASIDONE HCL 73516923217 No Longer Active Jillina Frazelephraim SILVICULTURE FORESTER Active AMLODIPINE BESYLATE 5 MG TABS 1 tablet by mouth daily AMLODIPINE BESYLATE 19444995747 No Longer Active Jillina Frazell SILVICULTURE FORESTER Active AMITRIPTYLINE HCL 100 MG TAB one at hs AMITRIPTYLINE HCL 71952654223 No Longer Active Vishal Hui MD Active TRAZODONE HCL 100 MG TAB take 1 at bedtime TRAZODONE HCL 20959804286 No Longer Active Vishal Hui MD Active VYVANSE 40 MG CAPS 1 daily, LISDEXAMFETAMINE DIMESYLATE 19037830879 No Longer Active Vishal Hui MD Active IBUPROFEN 600 MG TAB 1 po TID PRN IBUPROFEN 86459163401 No Longer Active Vishal Hui MD Active PROZAC 20 MG CAP Take one by mouth daily FLUOXETINE HCL 80347112637 No Longer Active Vishal Hui MD Active ZOFRAN 4 MG TABS 1 po q6hr PRN Nausea ONDANSETRON HCL Active Vishal Hui MD Active BACTRIM DS 800-160 MG TABS 1 pill by mouth twice daily SULFAMETHOXAZOLE-TRIMETHOPRIM 18046063854 No Longer Active Sahara Rodriguez MD PhD Active DIFLUCAN 150 MG TAB 1 tablet by mouth daily FLUCONAZOLE 48203600821 No Longer Active Vishal Hui MD Active TIZANIDINE HCL 4 MG TABS 1 po q6hr PRN Muscle Spasm/Back Pain TIZANIDINE HCL 33826234536 Active Vishal Hui MD Active CLINDAMYCIN HCL 150 MG CAPS 1 four times a day CLINDAMYCIN HCL 22899360870 No Longer Active Neeraj Collins MD Active KEFLEX 500 MG ORAL CAPS 1 cap QID by mouth CEPHALEXIN 53863706246 No Longer Active Neeraj Collins MD Active DIFLUCAN 150 MG TABS 1 pill every other day x 2 doses FLUCONAZOLE 29835306166 No Longer Active Sahara Rodriguez MD PhD Active MELATONIN 3 MG CAPS 2 po q hs MELATONIN 62622673474 No Longer Active Sahara Rodriguez MD PhD Active MULTIVITAMINS CAPS Take one by mouth daily MULTIPLE VITAMIN 57375364834 No Longer Active Sahara Rodriguez MD PhD Active BACTRIM DS 800-160 MG TAB 1 tab by mouth twice daily TRIMETHOPRIM-SULFAMETHOXAZOLE 16377985979 No Longer Active Sahara Rodriguez MD PhD Active [facility] PROBIOTIC ORAL CHEW 2 daily po PROBIOTIC PRODUCT 35497444036 No Longer Active Sahara Rodriguez MD PhD Active BACTRIM DS 800-160 MG TABS 1 po BID x 7 days SULFAMETHOXAZOLE-TRIMETHOPRIM 78840527839 No Longer Active Vishal Hui MD Active CHANTIX STARTING MONTH EARNEST 0.5 MG X 11 & 1 MG X 42 TABS 0.5mg daily for 3 days , then 0.5mg BID for 4 days, then 1mg BID VARENICLINE TARTRATE 04920227394 No Longer Active TAMARA Gray Active VERAPAMIL HCL CR 120 MG TAB CR 1 po bid VERAPAMIL HCL 94395982942 No Longer Active Vishal Hui MD Active METOPROLOL SUCCINATE 50 MG TB24 1 tablet by mouth daily METOPROLOL SUCCINATE 46550267638 No Longer Active Vishal Hui MD Active SAPHRIS 10 MG SUBL 1 tab po bid ASENAPINE MALEATE 33138298313 No Longer Active Vishal Hui MD Active LISINOPRIL 20 MG TABS 1 tab po qd LISINOPRIL 83701113825 No Longer Active Vishal Hui MD Active LATUDA 20 MG TABS Take one by mouth daily LURASIDONE HCL 12085529496 No Longer Active Vishal Hui MD Active TRAZODONE HCL 50 MG TABS 1/2 tab po qd prn for anxiety TRAZODONE HCL 67810154695 No Longer Active Vishal Hui MD Active OMEPRAZOLE 20 MG TBEC 1 po q a.m. 30min prior to first food intake OMEPRAZOLE 20825457872 Active Vishal Hui MD Active RANITIDINE HCL 150 MG CAPS 1 twice a day RANITIDINE HCL 55330851821 Active 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 SILVICULTURE FORESTER Active LINZESS 290 MCG CAPS Take one by mouth daily LINACLOTIDE 66872153149 No Longer Active Vishal Hui MD Active SAPHRIS 5 MG SUBL 1 tab po qd ASENAPINE MALEATE 55819229647 No Longer Active Vishal Hui MD Active ZALEPLON 10 MG CAPS 1 cap po every other night ZALEPLON 36404192093 No Longer Active Vishal Hui MD Active LYRICA 50 MG CAPS 1 tab po TID PREGABALIN 26238610776 No Longer Active Vishal Hui MD Active LORATADINE 10 MG TABS 1 tab po qd LORATADINE 97029398820 No Longer Active Vishal Hui MD Active VERAPAMIL HCL ER 180 MG CR-TABS 1 tab po bid VERAPAMIL HCL 88541162627 No Longer Active Vishal Hui MD Active MIRALAX POWD 1 capfull once daily POLYETHYLENE GLYCOL 3350 90232386657 No Longer Active Vishal Hui MD Active PREDNISONE 20 MG TABS 1 tab po qd PREDNISONE 13084726115 No Longer Active Renzo Thornton DO Active LEVOFLOXACIN 500 MG TABS 1 tab po qd LEVOFLOXACIN 28536895830 No Longer Active Renzo Thornton DO Active BUSPIRONE HCL 15 MG TABS 1 tab po TID BUSPIRONE HCL 17851195114 No Longer Active Renzo Thornton DO Active BENZTROPINE MESYLATE 1 MG TABS 1 tab po qd BENZTROPINE MESYLATE 57316561610 No Longer Active Renzo Thornton DO Active ATENOLOL 25 MG TABS 1 tab po qd ATENOLOL 07823314511 No Longer Active Renzo Thornton DO Active ESCITALOPRAM OXALATE 20 MG TABS 1 tab po qd ESCITALOPRAM OXALATE 02369487636 No Longer Active Renzo Thornton DO Active ADVAIR DISKUS 250-50 MCG/DOSE AEPB 1 puff BID FLUTICASONE-SALMETEROL 14352943163 No Longer Active Renzo Thornton DO Active PREDNISONE 20 MG TAB 2 tabs daily for 3 days, 1 tab daily for 3 days, 1/2 tab daily for 2 days PREDNISONE 25291836638 No Longer Active Vishal uHi MD Active CEFDINIR 300 MG CAPS by mouth twice a day CEFDINIR 97975550424 No Longer Active Vishal Hui MD Active LANSOPRAZOLE 30 MG CPDR 1 cap po qd LANSOPRAZOLE 56790694340 No Longer Active Vishal Hui MD Active BACLOFEN 20 MG TABS 1 tab po tid BACLOFEN 75413049951 No Longer Active Vishal Hui MD Active ADVAIR DISKUS 250-50 MCG/DOSE AEPB 1 puff BID ADVAIR DISKUS 250-50 MCG/DOSE AEPB FLUTICASONE-SALMETEROL Inactive ESCITALOPRAM OXALATE 20 MG TABS 1 tab po qd ESCITALOPRAM OXALATE 20 MG TABS 990522 ESCITALOPRAM OXALATE Inactive ATENOLOL 25 MG TABS 1 tab po qd ATENOLOL 25 MG TABS 872157 ATENOLOL Inactive BENZTROPINE MESYLATE 1 MG TABS 1 tab po qd BENZTROPINE MESYLATE 1 MG TABS 328714 BENZTROPINE MESYLATE Inactive BUSPIRONE HCL 15 MG TABS 1 tab po TID BUSPIRONE HCL 15 MG TABS 976890 BUSPIRONE HCL Inactive LEVOFLOXACIN 500 MG TABS 1 tab po qd LEVOFLOXACIN 500 MG TABS 585381 LEVOFLOXACIN Inactive PREDNISONE 20 MG TABS 1 tab po qd PREDNISONE 20 MG TABS 447670 PREDNISONE Inactive MIRALAX POWD 1 capfull once daily MIRALAX POWD 161266 POLYETHYLENE GLYCOL 3350 Inactive VERAPAMIL HCL ER 180 MG CR-TABS 1 tab po bid VERAPAMIL HCL ER 180 MG CR-TABS VERAPAMIL HCL Inactive LORATADINE 10 MG TABS 1 tab po qd LORATADINE 10 MG TABS 407348 LORATADINE Inactive LYRICA 50 MG CAPS 1 tab po TID LYRICA 50 MG CAPS PREGABALIN Inactive ZALEPLON 10 MG CAPS 1 cap po every other night ZALEPLON 10 MG CAPS 807119 ZALEPLON Inactive SAPHRIS 5 MG SUBL 1 tab po qd SAPHRIS 5 MG SUBL ASENAPINE MALEATE Inactive TRAZODONE HCL 50 MG TABS 1/2 tab po qd prn for anxiety TRAZODONE HCL 50 MG TABS 069918 TRAZODONE HCL Inactive LATUDA 20 MG TABS Take one by mouth daily LATUDA 20 MG TABS LURASIDONE HCL Inactive LISINOPRIL 20 MG TABS 1 tab po qd LISINOPRIL 20 MG TABS 440455 LISINOPRIL Inactive SAPHRIS 10 MG SUBL 1 [...] twice daily BACTRIM DS 800-160 MG TAB 743561 TRIMETHOPRIM-SULFAMETHOXAZOLE Inactive MULTIVITAMINS CAPS Take one by mouth daily MULTIVITAMINS CAPS MULTIPLE VITAMIN Inactive MELATONIN 3 MG CAPS 2 po q hs MELATONIN 3 MG CAPS 289006 MELATONIN Inactive KEFLEX 500 MG ORAL CAPS 1 cap QID by mouth KEFLEX 500 MG ORAL CAPS 791323 CEPHALEXIN Inactive CLINDAMYCIN HCL 150 MG CAPS 1 four times a day CLINDAMYCIN HCL 150 MG CAPS 863804 CLINDAMYCIN HCL Inactive DIFLUCAN 150 MG TAB 1 tablet by mouth daily DIFLUCAN 150 MG TAB 304220 FLUCONAZOLE Inactive PROZAC 20 MG CAP Take one by mouth daily PROZAC 20 MG CAP 199734 FLUOXETINE HCL Inactive IBUPROFEN 600 MG TAB 1 po TID PRN IBUPROFEN 600 MG TAB 837636 IBUPROFEN Inactive VYVANSE 40 MG CAPS 1 daily, VYVANSE 40 MG CAPS LISDEXAMFETAMINE DIMESYLATE Inactive TRAZODONE HCL 100 MG TAB take 1 at bedtime TRAZODONE HCL 100 MG TAB 200466 TRAZODONE HCL Inactive AMITRIPTYLINE HCL 100 MG TAB one at hs AMITRIPTYLINE HCL 100 MG TAB 198898 AMITRIPTYLINE HCL Inactive AMLODIPINE BESYLATE 5 MG TABS 1 tablet by mouth daily AMLODIPINE BESYLATE 5 MG TABS 153365 AMLODIPINE BESYLATE Inactive LATUDA 80 MG TABS Take one by mouth daily LATUDA 80 MG TABS LURASIDONE HCL Inactive SAPHRIS 5 MG SUBL 1 po bid SAPHRIS 5 MG SUBL ASENAPINE MALEATE Inactive PREDNISONE 20 MG TAB 2 tabs daily for 4 days, 1 tab daily for 4 days, 1/2 tab daily for 4 days PREDNISONE 20 MG TAB 880156 PREDNISONE Inactive AMBIEN 5 MG ORAL TABS 1 tab at bedtime AMBIEN 5 MG ORAL TABS 214332 ZOLPIDEM TARTRATE Inactive PROZAC 20 MG ORAL CAPS 1 tab daily PROZAC 20 MG ORAL CAPS 010721 FLUOXETINE HCL Inactive ABILIFY 15 MG ORAL TABS 1 tab daily ABILIFY 15 MG ORAL TABS 071122 ARIPIPRAZOLE Inactive METOPROLOL TARTRATE 50 MG TAB 1 po bid METOPROLOL TARTRATE 50 MG TAB 157620 METOPROLOL TARTRATE Inactive TRAMADOL HCL 50 MG TABS 1-2 po TID PRN Pain TRAMADOL HCL 50 MG TABS 038494 TRAMADOL HCL Inactive PIROXICAM 20 MG CAPS 1 cap po qd PRN Pain PIROXICAM 20 MG CAPS 830845 PIROXICAM Inactive MINIPRESS 2 MG CAPS 4 cap po at night MINIPRESS 2 MG CAPS 515773 PRAZOSIN HCL Inactive MIRALAX PACK 1 po qd PRN Constipation MIRALAX PACK 218037 POLYETHYLENE GLYCOL 3350 Inactive METOPROLOL TARTRATE 25 MG ORAL TABS 1/2 tablet twice daily for heart rate and blood pressure METOPROLOL TARTRATE 25 MG ORAL TABS 712753 METOPROLOL TARTRATE Inactive VALIUM 5 MG TAB Take 1-2 tablets daily VALIUM 5 MG TAB 773742 DIAZEPAM Inactive FLAGYL 500 MG TAB 1 tablet by mouth bid FLAGYL 500 MG TAB 315851 METRONIDAZOLE Inactive DICLOFENAC POTASSIUM TABS Take 1 tablet twice a day (pt. is not sure of the dose.) DICLOFENAC POTASSIUM TABS DICLOFENAC POTASSIUM TABS Inactive ZITHROMAX Z-EARNEST 250 MG TABS 2 today and then 1 daily for 4 days ZITHROMAX Z-EARNEST 250 MG TABS 0533348 AZITHROMYCIN Inactive PREDNISONE 20 MG TABS 2 daily for 5 days then 1 daily for 5 days PREDNISONE 20 MG TABS 409991 PREDNISONE Inactive PROAIR HFA 108 (90 BASE) MCG/ACT AERS 2 puffs four times a day as needed 2015 PROAIR HFA 108 (90 BASE) MCG/ACT AERS ALBUTEROL SULFATE Inactive HYDROCODONE-ACETAMINOPHEN 5-325 MG TABS 1 to 2 four times a day as needed for pain use until can be seen by specialist HYDROCODONE- ACETAMINOPHEN 5-325 MG TABS 092273 HYDROCODONE-ACETAMINOPHEN Inactive TESSALON PERLES 100 MG CAP 1 to 2 tablets by mouth 3 times daily as needed for cough TESSALON PERLES 100 MG CAP 772531 BENZONATATE Inactive CHANTIX STARTING MONTH EARNEST 0.5 [...] Pain 2015 DICLOFENAC SODIUM 50 MG TBEC 860275 DICLOFENAC SODIUM Inactive TOPAMAX 50 MG ORAL TABS 1 tab twice daily TOPAMAX 50 MG ORAL TABS 932950 TOPIRAMATE Inactive VIIBRYD 10 MG ORAL TABS Take 1 tablet once a day VIIBRYD 10 MG ORAL TABS VILAZODONE HCL Inactive LEVOFLOXACIN 500 MG ORAL TABS po daily LEVOFLOXACIN 500 MG ORAL TABS 255151 LEVOFLOXACIN Inactive METHYLPREDNISOLONE 4 MG ORAL TABS po daily METHYLPREDNISOLONE 4 MG ORAL TABS 353785 METHYLPREDNISOLONE Inactive OXYCODONE HCL ER 10 MG ORAL T12A 1/2 tab by mouth every 4 hours prn OXYCODONE HCL ER 10 MG ORAL T12A OXYCODONE HCL Inactive FLAGYL 500 MG TAB 1 tablet by mouth bid FLAGYL 500 MG TAB 186386 METRONIDAZOLE Inactive MONISTAT 7 COMBO PACK WOODROW 100 & 2 MG-% (9GM) VAG KIT 1 applicatorful per vagina q pm x 7 MONISTAT 7 COMBO PACK WOODROW 100 & 2 MG-% (9GM) VAG KIT MICONAZOLE NITRATE Inactive CEFDINIR 300 MG CAPS by mouth twice a day CEFDINIR 300 MG CAPS 996826 CEFDINIR Inactive PREDNISONE 20 MG TAB 2 tabs daily for 3 days, 1 tab daily for 3 days, 1/2 tab daily for 2 days PREDNISONE 20 MG TAB 041786 PREDNISONE Inactive BACTRIM DS 800-160 MG TABS 1 po BID x 7 days BACTRIM DS 800-160 MG TABS 19820521 SULFAMETHOXAZOLE-TRIMETHOPRIM Inactive DIFLUCAN 150 MG TABS 1 pill every other day x 2 doses DIFLUCAN 150 MG TABS 425707 FLUCONAZOLE Inactive BACTRIM DS 800-160 MG TABS 1 pill by mouth twice daily BACTRIM DS 800-160 MG TABS 530624 SULFAMETHOXAZOLE-TRIMETHOPRIM Inactive KEFLEX 500 MG CAP 1 po TID x 10 days KEFLEX 500 MG CAP 242231 CEPHALEXIN Inactive Advance Directives Directive Description Start [...] % 11.6-14.8 platelet count 394 10^3/MM^3 10*3/mm3 504-667 2535/01/11 leukocyte count, blood 13.8 10^3/MM^3 10*3/mm3 4.6-10.2 [...] 142-424 Lab Report: CBC W/DIFF - Hematology erythrocyte (RBC) count 4.26 10^6/MM^3 10*6/mm3 4.04-5.48 lymphocytes as percent of blood leukocytes 29.2 % 20.5-51.1 monocytes as percent of blood leukocytes 8.1 % 1.7-9.3 neutrophils as percent of blood leukocytes 58.9 % 42.2-75.2 leukocyte count, blood 11.4 10^3/MM^3 10*3/mm3 4.6-10.2 hemoglobin, blood 13.6 g/dL 12.0-16.0 hematocrit, blood 39.6 % 36.0-46.0 mean corpuscular volume, RBC 93 fL 80-97 mean corpuscular hemoglobin, RBC 32.0 pg 27.0-31.2 mean corpuscular hemoglobin concentration, RBC 34.3 G/DL % 31.8- 35.4 red blood cell distribution width 13.2 % 11.6-14.8 platelet count 379 10^3/MM^3 10*3/mm3 142-424 Lab Report: Chlamydia/GC APTIMA/[id number] - Lab chlamydia DNA probe NOT DETECTED NOT DETECTED Lab Report: Chlamydia/GC APTIMA/[id number] - Microbiology Neisseria gonorrhoeae DNA probe NOT DETECTED NOT DETECTED Lab Report: Comp. Metabolic Panel - Chemistry sodium, serum 140 mmol/L 571-412 4225/08/08 carbon dioxide, venous blood 33.7 mmol/L 21.0-32.0 potassium, serum 5.0 mmol/L 3.5-5.2 chloride, serum 103 mmol/L 98-107 blood glucose 80 mg/dL 65-110 urea nitrogen, blood 13 mg/dL 7-18 creatinine, serum 0.88 mg/dL 0.55-1.30 alanine aminotransferase (SGPT), serum 54 U/L 12-78 aspartate aminotransferase (SGOT), serum 29 U/L 15-37 calcium, serum 9.7 mg/dL 8.5-10.1 bilirubin, serum, total 0.30 mg/dL 0.00-1.00 sodium, serum 139 mmol/L 678-014 5275/01/11 carbon dioxide, venous blood 26.6 mmol/L 21.0-32.0 potassium, serum 4.1 mmol/L 3.5-5.2 chloride, serum 100 mmol/L 98-107 blood glucose 86 mg/dL 65-110 urea nitrogen, blood 16 mg/dL 7-18 creatinine, serum 1.00 mg/dL 0.55-1.30 alanine aminotransferase (SGPT), serum 48 U/L 12-78 aspartate aminotransferase (SGOT), serum 17 U/L 15-37 calcium, serum 9.1 mg/dL 8.5-10.1 bilirubin, serum, total 0.40 mg/dL 0.00-1.00 sodium, serum 142 mmol/L 214-161 5331/06/08 carbon dioxide, venous blood 27.6 mmol/L 21.0-32.0 potassium, serum 4.0 mmol/L 3.5-5.2 chloride, serum 105 mmol/L 98-107 blood glucose 95 mg/dL 65-110 urea nitrogen, blood 8 mg/dL 7-18 creatinine, serum 0.75 mg/dL 0.55-1.30 alanine aminotransferase (SGPT), serum 49 U/L 12-78 aspartate aminotransferase (SGOT), serum 28 U/L 15-37 calcium, serum 9.4 mg/dL 8.5-10.1 bilirubin, serum, total 0.30 mg/dL 0.00-1.00 sodium, serum 139 mmol/L 822-577 2422/12/22 carbon dioxide, venous blood 26.8 mmol/L 21.0-32.0 [...] Rate - Chemistry sodium, serum 139 mmol/L 400-440 4562/12/11 carbon dioxide, venous blood 25.4 mmol/L 21.0-32.0 [...] mg/dL Encounters Code Encounter Date Provider Facility CPT-66279 Level 3 Est. Patient 15:07:06 C[employer] WORKER Neeraj Collins MD [facility] CPT-32533 Level 4 Est. Patient 14:45:00 C[employer] WORKER Ahmet Carbajal MD [facility] CPT-22981 Level 3 Est. Patient 13:59:59 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 Level 3 Est. Patient 18:18:53 CDT Neeraj Collins MD [facility] CPT-75710 Level 3 Est. Patient 15:50:44 CDT Vishal Hui MD [facility] CPT-58522 Level 3 Est. Patient 11:36:17 CDT Ahmet Carbajal MD [facility] CPT-91009 Level 3 Est. Patient 13:29:16 CDT Vishal Hui MD [facility] CPT-00564 Level 3 Est. Patient 14:27:52 CDT Neeraj Collins MD [facility] CPT-86081 Level 3 Est. Patient 08:56:03 CDT Pacooral Messilebron [facility] CPT-93401 Level 4 Est. Patient 12:11:48 CDT Fabiolaniall Johnson [facility] CPT-31306 Level 3 New Patient 16:53:37 CDT Albert Caldera MD [facility] CPT-15538 Level 3 Est. Patient 11:25:49 CDT Renzo Thornton DO [facility] CPT-50832 Level 3 Est. Patient 15:22:01 CDT Ahmet Carbajal MD [facility] CPT-12186 Level 4 Est. Patient 09:00:51 C[employer] WORKER Vishal Hui MD [facility] CPT-70339 Level 3 Est. Patient 11:37:33 C[employer] AND C[employer] LINE WORKER Vishal Hui MD [facility] CPT-39192 Level 3 Est. Patient 08:41:09 C[employer] AND C[employer] LINE WORKER Vishal Hui MD [facility] CPT-23960 Level 4 Est. Patient 10:19:35 C[employer] AND C[employer] LINE WORKER Vishal Hui MD [facility] CPT-41093 Level 3 Est. Patient 13:35:45 CDT Vishal Hui MD [facility] CPT-62438 Level 4 Est. Patient 10:08:37 CDT Vishal Hui MD [facility] CPT-99019 Level 3 Est. Patient 11:22:10 CDT Vishal Hui MD [facility] CPT-61249 Level 3 Est. Patient 11:03:32 CDT Sahara Rodriguez MD, PhD [facility] CPT-43980 Level 3 Est. Patient 09:41:35 CDT Vishal Hui MD [facility] CPT-78031 Level 3 Est. Patient 12:00:41 CDT Neeraj Collins MD [facility] CPT-43657 Level 3 Est. Patient 09:16:24 CDT Vishal Hui MD [facility] CPT-20818 Level 4 Est. Patient 13:59:09 CDT Neeraj Collins MD [facility] CPT-09415 Level 3 Est. Patient 15:19:43 CDT Renzo Thornton [facility] CPT-54331 Level 3 Est. Patient 18:10:26 CDT Sahara Rodriguez MD [facility] CPT-53416 Level 3 Est. Patient 14:49:50 CDT Vishal Hui MD [facility] CPT-16622 Level 4 Est. Patient 18:41:46 CDT Neeraj Collins MD [facility] CPT-21427 Level 4 Est. Patient 09:18:38 [employer] Vishal Hui MD [facility] CPT-75481 Level 3 Est. Patient 14:43:55 [employer] Vishal Hui MD [facility] CPT-96441 Level 3 Est. Patient 15:26:33 [employer] Sahara Rodriguez MD PhD [facility] CPT-98177 Level 3 Est. Patient 10:32:14 [employer] Vishal Hui MD [facility] CPT-54234 Level 3 Est. Patient 15:12:52 [employer] WORK[employer] Vishal Hui MD [facility] CPT-72538 Level 4 Est. Patient 09:19:27 CDT Vishal Hui MD [facility] CPT-16222 Level 3 Est. Patient 15:53:00 CDT Renzo Thornton DO [facility] CPT-34455 Level 3 Est. Patient 15:50:30 CDT Renzo Thornton [facility] CPT-90943 Level 3 Est. Patient 16:55:24 CDT Vishal Hui MD [facility] Procedures Code Procedure Name Date Entry Date Standard Description CPT-06596 Abx/Therapy Injection 17:34:30 [employer] CPT-54435 Nexplanon Removal with Reinsertion 14:09:32 CDT CPT-J7307 Nexplanon (Implant) 14:09:32 CDT CPT-OV Office Visit 14:09:32 CDT CPT-85303 UA w micro - LAB USE ONLY 16:21:13 CDT CPT-84710 Wet Mount - LAB USE ONLY 16:21:13 CDT CPT-40844 First Vx - Ix admin for Medicare patients 14:37:47 CDT CPT-16938 Fluzone Preservative Free Intramuscular Suspension 14:37 :47 CDT CPT-23441 Abx/Therapy Injection 13:54:22 CDT CPT-43914 Abx/Therapy Injection 08:47:09 CDT CPT-27367 Abx/Therapy Injection 13:29:56 CDT CPT-10628 Abx/Therapy Injection 08:36:16 CDT CPT-64640 Wet Mount - LAB USE ONLY 17:44:58 CDT CPT-07671 UA w micro - LAB USE ONLY 17:44:58 CDT CPT-45272 CMP - LAB USE ONLY 17:44:58 CDT CPT-79265 Venipuncture Draw Fee 17:44:58 CDT CPT-05111 Cervical Min 4V - XRAY USE ONLY 09:01:40 CDT CPT-91659 Chest 2V Frontal and Lat - XRAY USE ONLY 11:06:31 CDT CPT-35055 EKG Trac and Interp - XRAY USE ONLY 11:31:43 CDT 08/26 CPT-J3420 Vitamin B12 1000mcg (Cyanocobalamin) 08:10:26 [employer] 04/12 CPT-91393 Abx/Therapy Injection 08:10:26 [employer] CPT-G0438 Initial Annual Wellness Exam 19:01:01 [employer] CPT-J3420 Vitamin B12 1000mcg (Cyanocobalamin) 16:57:46 CDT 08/14 CPT-90884 Recombivax HB Injection Suspension 5 MCG/0.5ML 08:37:50 [employer] CPT-74431 Immunization Single Admin 08:37:50 [employer] CPT-J3420 Vitamin B12 1000mcg (Cyanocobalamin) 08:32:16 [employer] 03/11 CPT-43692 Abx/Therapy Injection 08:32:16 [employer] CPT-17807 Chest 2V Frontal and Lat 11:46:38 [employer] CPT-21063 Venipuncture Draw Fee 09:12:45 [employer] CPT-J3420 Vitamin B12 1000mcg (Cyanocobalamin) 08:50:15 [employer] 02/08 CPT-18462 Abx/Therapy Injection 08:50:15 [employer] CPT-Cryo Cryotherapy 10:19:35 [employer] CPT-000 Give Appropriate Flu Vaccine 09:22:16 CDT CPT-J3420 Vitamin B12 1000mcg (Cyanocobalamin) 19:08:57 CDT 01/11 CPT-94048 Abx/Therapy Injection 19:08:57 CDT CPT-J3420 Vitamin B12 1000mcg (Cyanocobalamin) 08:19:08 CDT 12/11 CPT-80330 Abx/Therapy Injection 08:19:08 CDT CPT-J3420 Vitamin B12 1000mcg (Cyanocobalamin) 14:48:00 CDT 11/09 CPT-19295 Abx/Therapy Injection 14:47:59 CDT CPT-J3420 Vitamin B12 1000mcg (Cyanocobalamin) 08:34:04 CDT 10/09 CPT-42274 Abx/Therapy Injection 08:34:04 CDT CPT-J3420 Vitamin B12 1000mcg (Cyanocobalamin) 09:18:52 CDT 09/11 CPT-92796 Abx/Therapy Injection 09:18:52 CDT CPT-J3420 Vitamin B12 1000mcg (Cyanocobalamin) 08:35:44 CDT 09/04 CPT-99133 Abx/Therapy Injection 08:35:44 CDT CPT-91160 Immunization Single Admin 11:07:16 CDT CPT-86079 Hepatitis B adult IM 11:07:16 CDT CPT-J3420 Vitamin B12 1000mcg (Cyanocobalamin) 11:00:49 CDT 08/28 CPT-J1040 Depo Medrol 80 mg (Methyl Prednisolone Acetate) 11:00: 49 CDT CPT-58594 Abx/Therapy Injection 11:00:49 CDT CPT-J1040 Depo Medrol 80 mg (Methyl Prednisolone Acetate) 09:16: 23 CDT CPT-J3420 Vitamin B12 1000mcg (Cyanocobalamin) 08:27:05 CDT 08/20 CPT-97848 Abx/Therapy Injection 08:27:05 CDT CPT-90467 Recombivax HB Injection Suspension 5 MCG/0.5ML 10:00:41 CDT CPT-44636 Administration single or combination vaccine inc oral 10 :00:41 CDT CPT-80274 Sono transvag pelvis non OB uterus ovaries cervix 16:36: 57 CDT CPT-71865 LS spine comp w obliq 09:50:55 [employer] CPT-93815 Abd compl w upright 09:50:55 [employer] CPT-J1100 Decadron 4mg (Dexamethasone) 15:51:24 [employer] CPT-J1030 Depo Medrol 40 mg (Methyl Prednisolone Acetate) 15:51: 24 [employer] CPT-29669 Abx/Therapy Injection 15:51:24 [employer] CPT-J1100 Decadron 4mg (Dexamethasone) 15:26:33 [employer] CPT-J1030 Depo Medrol 40 mg (Methyl Prednisolone Acetate) 15:26: 33 [employer] CPT-65337 Sono retroperitoneal complete kidneys and bladder 17:15: 30 CDT CPT-47786 Abd compl w upright 16:09:25 CDT CPT-J1100 Decadron 8mg (Dexamethasone) 17:07:57 CDT CPT-99130 Abx/Therapy Injection 17:07:57 CDT CPT-J1100 Decadron 8mg (Dexamethasone) 16:55:24 CDT CPT-02889 Chest 2V Frontal and Lat 16:32:44 CDT
[2016-11-04] MEDS ORDERED: ONDANSETRON 4 MG/2 ML (SDV) Z0FRAN IVP ONE (11:30)
--- OUTSIDE RECORDS SUMMARY | 2016-11-04 11:30 | XMS REPORT | Clinical Summary ---
Author Author Admin, [facility] Organization [facility] Address Unknown Phone Unavailable Allergies, Adverse Reactions, [...] Active Ahmet Carbajal MD Generalized anxiety disorder Courtesy Driver well woman exam V72.31 Resolved Suzan Boo [...] Abdominal pain, right upper quadrant 789.01 Resolved uSzan Boo APRN Abdominal pain, right upper quadrant Dark urine 791.9 Resolved Suzan Boo APRN Other nonspecific findings on examination of urine Neck pain, chronic 723.1 Active Suzan Boo APRN Cervicalgia Preop exam V72.84 Resolved Suzan Boo APRN Preoperative examination, unspecified 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 Suzan Boo APRN Candidiasis of skin and nails Anxiety Disorder ICD-300.00 Inactive Vishal Hui MD [...] Upper respiratory infection ICD-465.9 Inactive Suzan Boo BRICK MACHINE OPERATOR Other fracture of upper and lower end [...] Bronchitis, acute ICD-466.0 Inactive Ahmet Carbajal MD Courtesy Driver well woman exam ICD-V72.31 Inactive Suzan Rajeev BRICK MACHINE OPERATOR Bronchitis, acute with mild bronchospasm ICD-466.0 Inactive Suzan Rajeev BRICK MACHINE OPERATOR Tracheitis ICD-464.10 Inactive Suzan Boo BRICK MACHINE OPERATOR Impetigo ICD-684 Inactive Suzan Boo BRICK MACHINE OPERATOR Furuncle of buttock ICD-680.5 Inactive Suzan Boo BRICK MACHINE OPERATOR Vaginal irritation ICD-623.9 Inactive Suzan oBo BRICK MACHINE OPERATOR Scalding pain on urination ICD-788.1 Inactive Suzan Boo BRICK MACHINE OPERATOR Abdominal pain, right upper quadrant ICD-789.01 Inactive Suzan Boo BRICK MACHINE OPERATOR Dark urine ICD-791.9 Inactive Suzan Boo BRICK MACHINE OPERATOR Preop exam ICD-V72.84 Inactive Suzan Rajeev BRICK MACHINE OPERATOR Medication List Medication Instructions Start Date Stop Date Generic Name ND Status Provider Patient Instruction NYSTATIN 658179 UNIT/GM CREA apply three times a day to yeast rash NYSTATIN [id number] Active Suzan Boo APRN Active AMITIZA 24 MCG ORAL CAPS one capsule twice daily LUBIPROSTONE 10622106930 Active Suzan Boo APRN Active MIRALAX ORAL POWD 17GMS DAILY IN WATER POLYETHYLENE GLYCOL 3350 51602023114 No Longer Active Suzan Boo APRN Active LACTULOSE 10 GM/15ML ORAL SOLN 30mL oral BID for IBS-C LACTULOSE 13459806086 No Longer Active Suzan Boo APRN Active BACTRIM DS 800-160 MG TAB Take one (1) tablet by mouth twice a day for 5 days TRIMETHOPRIM-SULFAMETHOXAZOLE 39875430068 No Longer Active Suzan Boo APRN Active MUPIROCIN 2 % OINT apply twice a day MUPIROCIN 89899448368 No Longer Active Suzan Boo APRN Active BACTRIM DS 800-160 MG TABS 1 twice a day SULFAMETHOXAZOLE-TRIMETHOPRIM 62093571071 No Longer Active Suzan Boo APRN Active DIFLUCAN 150 MG TABS 1 by mouth for yeast FLUCONAZOLE 97933824484 No Longer Active Suzan Boo APRN Active LINZESS 290 MCG ORAL CAPS 1 tab 30 min prior to first meal each day. LINACLOTIDE 89806893076 No Longer Active Sheila Calderon LPN Active AMITIZA 8 MCG ORAL CAPS 1 tab BID LUBIPROSTONE 40422422180 No Longer Active Lynda Xiao LPN Active TESSALON PERLES 100 MG CAPS 1 three times a day as needed for cough BENZONATATE 38966415056 No Longer Active Suzan Boo APRN Active BACTRIM DS 800-160 MG TABS 1 twice a day SULFAMETHOXAZOLE-TRIMETHOPRIM 42058080553 No Longer Active Suzan Boo APRN Active DIFLUCAN 150 MG TABS 1 by mouth for yeast FLUCONAZOLE 81119724794 No Longer Active Suzan Boo APRN Active EQ NICOTINE 21 MG/24HR TRANS PT24 Apply daily to stop smoking NICOTINE 12347205845 No Longer Active Suzan Boo APRN Active PREDNISONE 10 MG TABS 2 daily for 5 days then 1 daily for 5 days PREDNISONE 54420160855 No Longer Active Suzan Boo APRN Active LEVAQUIN 500 MG TABS 1 daily for infection LEVOFLOXACIN 12031094271 No Longer Active Suzan Boo APRN Active TROPICAMIDE 0.5 % OPHTH SOLN 1 drop PRN eye spasms TROPICAMIDE 04813758452 No Longer Active Suzan Boo APRN Active PREDNISONE 20 MG TAB 1 tablet daily x 4 days PREDNISONE 61746015833 No Longer Active Suzan Boo APRN Active ACETAMINOPHEN-CODEINE 120-12 MG/5ML SOLN 5 ml by mouth every 4-6 hours if needed for cough ACETAMINOPHEN-CODEINE 37930110957 No Longer Active Suzan Boo APRN Active KEFLEX 500 MG CAP 1 po qid CEPHALEXIN 99086093995 No Longer Active Suzan Boo APRN Active FLOVENT HFA 110 MCG/ACT AERO 2 puffs inhaled b.i.d. FLUTICASONE PROPIONATE HFA 93426926242 Active Renzo Thornton DO Active RISPERDAL 4 MG ORAL TABS 1 tab at bedtime RISPERIDONE 93173040811 Active Samantha Rothman RMA Active ZOFRAN 4 MG TABS 1 po q6hr PRN Nausea ONDANSETRON HCL No Longer Active Suzan Boo APRN Active FLUTICASONE PROPIONATE 50 MCG/ACT SUSP 2 sprays each nostril daily before bed. FLUTICASONE PROPIONATE 00547561244 No Longer Active Suzan Boo APRN Active ASPIRIN 325 MG ORAL TABS 1 tab q.d ASPIRIN 78403249316 No Longer Active Suzan Boo APRN Active HALOPERIDOL 10 MG ORAL TABS 1 tab q.d HALOPERIDOL 32391041317 No Longer Active Suzan Boo APRN Active GUAIFENESIN-CODEINE 100-10 MG/5ML SYRP 5ml every 4 to 6 hours as needed for cough GUAIFENESIN-CODEINE 25943148793 No Longer Active Suzan Boo APRN Active ZITHROMAX Z-EARNEST 250 MG TABS 2 today and then 1 daily for 4 days AZITHROMYCIN 90644853485 No Longer Active Suzan Boo APRN Active CLONAZEPAM 1 MG ORAL TABS 1 twice a day and an additional 1 tablet every other day as needed for pseudoseizures or anxiety CLONAZEPAM 34386104859 Active Suzan Boo APRN Active HYDROCODONE-ACETAMINOPHEN 5-325 MG ORAL TABS 1 tab two times a day HYDROCODONE-ACETAMINOPHEN 20952643428 No Longer Active Amhet Carbajal MD Active LAMICTAL 100 MG ORAL TABS 1 tab 2 times qd. LAMOTRIGINE 70529997589 Active Ahmet Carbajal MD Active PREDNISONE 20 MG TABS 2 daily for 5 days then 1 daily for 5 days PREDNISONE 25469237625 No Longer Active Ahmet Carbajal MD Active FLUTICASONE PROPIONATE 50 MCG/ACT SUSP 1 to 2 sprays each nostril daily for allergies FLUTICASONE PROPIONATE 86364067763 Active Tila Valenzuela Active BENADRYL 25 MG CAP 4 po at bedtime for insomnia DIPHENHYDRAMINE HCL 74252494543 No Longer Active Ahmet Carbajal MD Active ADVAIR DISKUS 250-50 MCG/DOSE INH AEPB 1 puff twice a day for asthma FLUTICASONE-SALMETEROL 06579717444 No Longer Active Ahmet Carbajal MD Active KLONOPIN 1 MG ORAL TABS 1 tab po TID CLONAZEPAM 85374281887 No Longer Active Ahmet Carbajal MD Active ABILIFY MAINTENA 400 MG IM SUSR 400mg injection every 26 days ARIPIPRAZOLE 31298159646 No Longer Active Ahmet Carbajal MD Active TRAMADOL HCL 50 MG TABS 1/2-1 tab TID PRN TRAMADOL HCL 05363451147 No Longer Active Ahmet Carbajal MD Active BACTRIM DS 800-160 MG TABS 1 twice a day SULFAMETHOXAZOLE- TRIMETHOPRIM 74161487890 No Longer Active Ahmet Carbajal MD Active PROAIR HFA 108 (90 BASE) MCG/ACT AERS 2 puffs four times a day as needed 2015 ALBUTEROL SULFATE 81774569622 Active Honey Hinton BRICK MACHINE OPERATOR Active MONISTAT 7 COMBO PACK WOODROW 100 & 2 MG-% (9GM) VAG KIT 1 applicatorful per vagina q pm x 7 MICONAZOLE NITRATE 76455626647 No Longer Active Ahmet Carbajal MD Active FLAGYL 500 MG TAB 1 tablet by mouth bid METRONIDAZOLE 95449442044 No Longer Active Ahmet Carbajal MD Active OXYCODONE HCL ER 10 MG ORAL T12A 1/2 tab by mouth every 4 hours prn OXYCODONE HCL 50120756852 No Longer Active Ahmet Carbajal MD Active METHYLPREDNISOLONE 4 MG ORAL TABS po daily METHYLPREDNISOLONE 00260558849 No Longer Active Ahmet Carbajal MD Active LEVOFLOXACIN 500 MG ORAL TABS po daily LEVOFLOXACIN 99213120109 No Longer Active Ahmet Carbajal MD Active VIIBRYD 10 MG ORAL TABS Take 1 tablet once a day VILAZODONE HCL 03419785086 No Longer Active Ahmet Carbajal MD Active TOPAMAX 50 MG ORAL TABS 1 tab twice daily TOPIRAMATE 32887689377 No Longer Active Ahmet Carbajal MD Active DICLOFENAC SODIUM 50 MG TBEC 1 tablet by mouth four times daily PRN Pain 2015 DICLOFENAC SODIUM 08478428187 No Longer Active Ahmet Carbajal MD Active ADZENYS XR-ODT 6.3 MG ORAL TBED 1 tab po daily for ADHD AMPHETAMINE 33370637431 No Longer Active Ahmet Carbajal MD Active CHANTIX 1 MG TABS 1 twice a day to help quit smoking VARENICLINE TARTRATE 65143473014 No Longer Active Dipika Burgos MD Active CHANTIX STARTING MONTH EARNEST 0.5 MG X 11 & 1 MG X 42 TABS take as directed 2015 VARENICLINE TARTRATE 24986430897 No Longer Active Dipika Burgos MD Active JARVIS GONZALEZ 100 MG CAP 1 to 2 tablets by mouth 3 times daily as needed for cough BENZONATATE 26924055380 No Longer Active 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 APRN Active IMITREX 50 MG ORAL TABS 0.5 po x 1 PRN Headache. May repeat dose x 1 in 2 hours if needed SUMATRIPTAN SUCCINATE 65226813794 Active TAMARA Casey Active HYDROCODONE-ACETAMINOPHEN 5-325 MG TABS 1 to 2 four times a day as needed for pain use until can be seen by specialist HYDROCODONE- ACETAMINOPHEN 80278327126 No Longer Active Vishal Hui MD Active PROAIR HFA 108 (90 BASE) MCG/ACT AERS 2 puffs four times a day as needed 2015 ALBUTEROL SULFATE 99887368734 No Longer Active Vishal Hui MD Active PREDNISONE 20 MG TABS 2 daily for 5 days then 1 daily for 5 days PREDNISONE 38697417938 No Longer Active Vishal Hui MD Active ZITHROMAX Z-EARNEST 250 MG TABS 2 today and then 1 daily for 4 days AZITHROMYCIN 35939715677 No Longer Active Vishal Hui MD Active DICLOFENAC POTASSIUM TABS Take 1 tablet twice a day (pt. is not sure of the dose.) DICLOFENAC POTASSIUM TABS 95264358424 No Longer Active Vishal Hui MD Active VERAPAMIL HCL ER 120 MG ORAL CR-TABS Take 1 tablet by mouth twice a day. VERAPAMIL HCL 39631528215 Active Vishal Hui MD Active FLAGYL 500 MG TAB 1 tablet by mouth bid METRONIDAZOLE 32164568526 No Longer Active Vishal Hui MD Active VALIUM 5 MG TAB Take 1-2 tablets daily DIAZEPAM 53346732562 No Longer Active Fabiola Johnson APRN Active METOPROLOL TARTRATE 25 MG ORAL TABS 1/2 tablet twice daily for heart rate and blood pressure METOPROLOL TARTRATE 93942137989 No Longer Active Fabiola Johnson APRN Active MIRALAX PACK 1 po qd PRN Constipation POLYETHYLENE GLYCOL 3350 77071511526 No Longer Active Ahmet Carbajal MD Active MINIPRESS 2 MG CAPS 4 cap po at night PRAZOSIN HCL 77742145709 No Longer Active Ahmet Carbajal MD Active PIROXICAM 20 MG CAPS 1 cap po qd PRN Pain PIROXICAM 66858523467 No Longer Active Ahmet Carbajal MD Active TRAMADOL HCL 50 MG TABS 1-2 po TID PRN Pain TRAMADOL HCL 41062140013 No Longer Active Ahmet Carbajal MD Active METOPROLOL TARTRATE 50 MG TAB 1 po bid METOPROLOL TARTRATE 46582214350 No Longer Active Ahmet Carbajal MD Active ABILIFY 15 MG ORAL TABS 1 tab daily ARIPIPRAZOLE 61651525045 No Longer Active Ahmet Carbajal MD Active PROZAC 20 MG ORAL CAPS 1 tab daily FLUOXETINE HCL 51319741181 No Longer Active Ahmet Carbajal MD Active AMBIEN 5 MG ORAL TABS 1 tab at bedtime ZOLPIDEM TARTRATE 92884968426 No Longer Active Ahmet Carbajal MD Active PREDNISONE 20 MG TAB 2 tabs daily for 4 days, 1 tab daily for 4 days, 1/2 tab daily for 4 days PREDNISONE 28948552966 No Longer Active Ahmet Carbajal MD Active KEFLEX 500 MG CAP 1 po TID x 10 days CEPHALEXIN 17176158838 No Longer Active Vishal Hui MD Active SAPHRIS 5 MG SUBL 1 po bid ASENAPINE MALEATE 60892074556 No Longer Active Jillina Mauricio BRICK MACHINE OPERATOR Active LATUDA 80 MG TABS Take one by mouth daily LURASIDONE HCL 99345805092 No Longer Active Jillina Frazell BRICK MACHINE OPERATOR Active AMLODIPINE BESYLATE 5 MG TABS 1 tablet by mouth daily AMLODIPINE BESYLATE 04009776087 No Longer Active Jillina Fradwightl BRICK MACHINE OPERATOR Active AMITRIPTYLINE HCL 100 MG TAB one at hs AMITRIPTYLINE HCL 08478367071 No Longer Active Vishal Hui MD Active TRAZODONE HCL 100 MG TAB take 1 at bedtime TRAZODONE HCL 97691634229 No Longer Active Vishal Hui MD Active VYVANSE 40 MG CAPS 1 daily, LISDEXAMFETAMINE DIMESYLATE 62233154617 No Longer Active Vishal Hui MD Active IBUPROFEN 600 MG TAB 1 po TID PRN IBUPROFEN 79764477480 No Longer Active Vishal Hui MD Active PROZAC 20 MG CAP Take one by mouth daily FLUOXETINE HCL 40400601968 No Longer Active Vishal Hui MD Active BACTRIM DS 800-160 MG TABS 1 pill by mouth twice daily SULFAMETHOXAZOLE-TRIMETHOPRIM 42137927890 No Longer Active Sahara Rodriguez MD PhD Active DIFLUCAN 150 MG TAB 1 tablet by mouth daily FLUCONAZOLE 48976717383 No Longer Active Vishal Hui MD Active TIZANIDINE HCL 4 MG TABS 1 po q6hr PRN Muscle Spasm/Back Pain TIZANIDINE HCL 22866169926 Active TAMARA Casey Active CLINDAMYCIN HCL 150 MG CAPS 1 four times a day CLINDAMYCIN HCL 64680739057 No Longer Active Neeraj Collins MD Active KEFLEX 500 MG ORAL CAPS 1 cap QID by mouth CEPHALEXIN 79808991439 No Longer Active Neeraj Collins MD Active DIFLUCAN 150 MG TABS 1 pill every other day x 2 doses FLUCONAZOLE 49215445611 No Longer Active Sahara Rodriguez MD PhD Active MELATONIN 3 MG CAPS 2 po q hs MELATONIN 23751625666 No Longer Active Sahara Rodriguez MD PhD Active MULTIVITAMINS CAPS Take one by mouth daily MULTIPLE VITAMIN 54541275316 No Longer Active Sahara Rodriguez MD PhD Active BACTRIM DS 800-160 MG TAB 1 tab by mouth twice daily TRIMETHOPRIM-SULFAMETHOXAZOLE 31880772881 No Longer Active Sahara Rodriguez MD PhD Active [facility] PROBIOTIC ORAL CHEW 2 daily po PROBIOTIC PRODUCT 93586091006 No Longer Active Sahara Rodriguez MD PhD Active BACTRIM DS 800-160 MG TABS 1 po BID x 7 days SULFAMETHOXAZOLE-TRIMETHOPRIM 53590136310 No Longer Active Vishal Hui MD Active CHANTIX STARTING MONTH EARNEST 0.5 MG X 11 & 1 MG X 42 TABS 0.5mg daily for 3 days , then 0.5mg BID for 4 days, then 1mg BID VARENICLINE TARTRATE 89710940810 No Longer Active TAMARA Gray Active VERAPAMIL HCL CR 120 MG TAB CR 1 po bid VERAPAMIL HCL 52208132314 No Longer Active Vishal Hui MD Active METOPROLOL SUCCINATE 50 MG TB24 1 tablet by mouth daily METOPROLOL SUCCINATE 80360740572 No Longer Active Vishal Hui MD Active SAPHRIS 10 MG SUBL 1 tab po bid ASENAPINE MALEATE 37283320575 No Longer Active Vishal Hui MD Active LISINOPRIL 20 MG TABS 1 tab po qd LISINOPRIL 46087313855 No Longer Active Vishal Hui MD Active LATUDA 20 MG TABS Take one by mouth daily LURASIDONE HCL 73852729943 No Longer Active Vishal Hui MD Active TRAZODONE HCL 50 MG TABS 1/2 tab po qd prn for anxiety TRAZODONE HCL 06394782812 No Longer Active Vishal Hui MD Active OMEPRAZOLE 20 MG TBEC 1 po q a.m. 30min prior to first food intake OMEPRAZOLE 00745215788 Active TAMARA Casey Active RANITIDINE HCL 150 MG CAPS 1 twice a day RANITIDINE HCL 10612380878 Active Lynda Madl BREAD DISTRIBUTOR Active LINZESS 290 MCG CAPS Take one by mouth daily LINACLOTIDE 20675704274 No Longer Active Vishal Hui MD Active SAPHRIS 5 MG SUBL 1 tab po qd ASENAPINE MALEATE 59940046422 No Longer Active Vishal Hui MD Active ZALEPLON 10 MG CAPS 1 cap po every other night ZALEPLON 75074805313 No Longer Active Vishal Hui MD Active LYRICA 50 MG CAPS 1 tab po TID PREGABALIN 55241940250 No Longer Active Vishal Hui MD Active LORATADINE 10 MG TABS 1 tab po qd LORATADINE 97603785707 No Longer Active Vishal Hui MD Active VERAPAMIL HCL ER 180 MG CR-TABS 1 tab po bid VERAPAMIL HCL 02623802576 No Longer Active Vishal Hui MD Active MIRALAX POWD 1 capfull once daily POLYETHYLENE GLYCOL 3350 02988377627 No Longer Active Vishal Hui MD Active PREDNISONE 20 MG TABS 1 tab po qd PREDNISONE 11603962636 No Longer Active Renzo Thornton DO Active LEVOFLOXACIN 500 MG TABS 1 tab po qd LEVOFLOXACIN 90088354989 No Longer Active Renzo Thornton DO Active BUSPIRONE HCL 15 MG TABS 1 tab po TID BUSPIRONE HCL 57480244445 No Longer Active Renzo Thornton DO Active BENZTROPINE MESYLATE 1 MG TABS 1 tab po qd BENZTROPINE MESYLATE 82775494293 No Longer Active Renzo Thornton DO Active ATENOLOL 25 MG TABS 1 tab po qd ATENOLOL 17709578263 No Longer Active Renzo Thornton DO Active ESCITALOPRAM OXALATE 20 MG TABS 1 tab po qd ESCITALOPRAM OXALATE 81967148126 No Longer Active Renzo Thornton DO Active ADVAIR DISKUS 250-50 MCG/DOSE AEPB 1 puff BID FLUTICASONE-SALMETEROL 49838463158 No Longer Active Renzo Thornton DO Active PREDNISONE 20 MG TAB 2 tabs daily for 3 days, 1 tab daily for 3 days, 1/2 tab daily for 2 days PREDNISONE 25039297345 No Longer Active Vishal Hiu MD Active CEFDINIR 300 MG CAPS by mouth twice a day CEFDINIR 36087855507 No Longer Active Vishal Hui MD Active LANSOPRAZOLE 30 MG CPDR 1 cap po qd LANSOPRAZOLE 67847590128 No Longer Active Vishal Hui MD Active BACLOFEN 20 MG TABS 1 tab po tid BACLOFEN 06669565574 No Longer Active Vishal Hui MD Active ADVAIR DISKUS 250-50 MCG/DOSE AEPB 1 puff BID ADVAIR DISKUS 250-50 MCG/DOSE AEPB FLUTICASONE-SALMETEROL Inactive ESCITALOPRAM OXALATE 20 MG TABS 1 tab po qd ESCITALOPRAM OXALATE 20 MG TABS 270014 ESCITALOPRAM OXALATE Inactive ATENOLOL 25 MG TABS 1 tab po qd ATENOLOL 25 MG TABS 760795 ATENOLOL Inactive BENZTROPINE MESYLATE 1 MG TABS 1 tab po qd BENZTROPINE MESYLATE 1 MG TABS 319345 BENZTROPINE MESYLATE Inactive BUSPIRONE HCL 15 MG TABS 1 tab po TID BUSPIRONE HCL 15 MG TABS 321616 BUSPIRONE HCL Inactive LEVOFLOXACIN 500 MG TABS 1 tab po qd LEVOFLOXACIN 500 MG TABS 464369 LEVOFLOXACIN Inactive PREDNISONE 20 MG TABS 1 tab po qd PREDNISONE 20 MG TABS 297633 PREDNISONE Inactive MIRALAX POWD 1 capfull once daily MIRALAX POWD 600374 POLYETHYLENE GLYCOL 3350 Inactive VERAPAMIL HCL ER 180 MG CR-TABS 1 tab po bid VERAPAMIL HCL ER 180 MG CR-TABS VERAPAMIL HCL Inactive LORATADINE 10 MG TABS 1 tab po qd LORATADINE 10 MG TABS 640846 LORATADINE Inactive LYRICA 50 MG CAPS 1 tab po TID LYRICA 50 MG CAPS PREGABALIN Inactive ZALEPLON 10 MG CAPS 1 cap po every other night ZALEPLON 10 MG CAPS 776129 ZALEPLON Inactive SAPHRIS 5 MG SUBL 1 tab po qd SAPHRIS 5 MG SUBL ASENAPINE MALEATE Inactive TRAZODONE HCL 50 MG TABS 1/2 tab po qd prn for anxiety TRAZODONE HCL 50 MG TABS 685021 TRAZODONE HCL Inactive LATUDA 20 MG TABS Take one by mouth daily LATUDA 20 MG TABS LURASIDONE HCL Inactive LISINOPRIL 20 MG TABS 1 tab po qd LISINOPRIL 20 MG TABS 831501 LISINOPRIL Inactive SAPHRIS 10 MG SUBL 1 [...] days, then 1mg BID CHANTIX STARTING MONTH ERANEST 0.5 MG X 11 & 1 MG X 42 TABS VARENICLINE TARTRATE Inactive [facility] PROBIOTIC ORAL CHEW 2 daily po [facility] PROBIOTIC ORAL CHEW PROBIOTIC PRODUCT Inactive BACTRIM DS 800-160 MG TAB 1 tab by mouth twice daily BACTRIM DS 800-160 MG TAB 940479 TRIMETHOPRIM-SULFAMETHOXAZOLE Inactive MULTIVITAMINS CAPS Take one by mouth daily MULTIVITAMINS CAPS MULTIPLE VITAMIN Inactive MELATONIN 3 MG CAPS 2 po q hs MELATONIN 3 MG CAPS 19950526 MELATONIN Inactive KEFLEX 500 MG ORAL CAPS 1 cap QID by mouth KEFLEX 500 MG ORAL CAPS 199905 CEPHALEXIN Inactive CLINDAMYCIN HCL 150 MG CAPS 1 four times a day CLINDAMYCIN HCL 150 MG CAPS 19740326 CLINDAMYCIN HCL Inactive DIFLUCAN 150 MG TAB 1 tablet by mouth daily DIFLUCAN 150 MG TAB 098715 FLUCONAZOLE Inactive PROZAC 20 MG CAP Take one by mouth daily PROZAC 20 MG CAP 183687 FLUOXETINE HCL Inactive IBUPROFEN 600 MG TAB 1 po TID PRN IBUPROFEN 600 MG TAB 638427 IBUPROFEN Inactive VYVANSE 40 MG CAPS 1 daily, VYVANSE 40 MG CAPS LISDEXAMFETAMINE DIMESYLATE Inactive TRAZODONE HCL 100 MG TAB take 1 at bedtime TRAZODONE HCL 100 MG TAB 965511 TRAZODONE HCL Inactive AMITRIPTYLINE HCL 100 MG TAB one at hs AMITRIPTYLINE HCL 100 MG TAB 613476 AMITRIPTYLINE HCL Inactive AMLODIPINE BESYLATE 5 MG TABS 1 tablet by mouth daily AMLODIPINE BESYLATE 5 MG TABS 862638 AMLODIPINE BESYLATE Inactive LATUDA 80 MG TABS Take one by mouth daily LATUDA 80 MG TABS LURASIDONE HCL Inactive SAPHRIS 5 MG SUBL 1 po bid SAPHRIS 5 MG SUBL ASENAPINE MALEATE Inactive PREDNISONE 20 MG TAB 2 tabs daily for 4 days, 1 tab daily for 4 days, 1/2 tab daily for 4 days PREDNISONE 20 MG TAB 083802 PREDNISONE Inactive AMBIEN 5 MG ORAL TABS 1 tab at bedtime AMBIEN 5 MG ORAL TABS 004584 ZOLPIDEM TARTRATE Inactive PROZAC 20 MG ORAL CAPS 1 tab daily PROZAC 20 MG ORAL CAPS 061013 FLUOXETINE HCL Inactive ABILIFY 15 MG ORAL TABS 1 tab daily ABILIFY 15 MG ORAL TABS 845668 ARIPIPRAZOLE Inactive METOPROLOL TARTRATE 50 MG TAB 1 po bid METOPROLOL TARTRATE 50 MG TAB 729275 METOPROLOL TARTRATE Inactive TRAMADOL HCL 50 MG TABS 1-2 po TID PRN Pain TRAMADOL HCL 50 MG TABS 197735 TRAMADOL HCL Inactive PIROXICAM 20 MG CAPS 1 cap po qd PRN Pain PIROXICAM 20 MG CAPS 698280 PIROXICAM Inactive MINIPRESS 2 MG CAPS 4 cap po at night MINIPRESS 2 MG CAPS 600494 PRAZOSIN HCL Inactive MIRALAX PACK 1 po qd PRN Constipation MIRALAX PACK 194174 POLYETHYLENE GLYCOL 3350 Inactive METOPROLOL TARTRATE 25 MG ORAL TABS 1/2 tablet twice daily for heart rate and blood pressure METOPROLOL TARTRATE 25 MG ORAL TABS 959455 METOPROLOL TARTRATE Inactive VALIUM 5 MG TAB Take 1-2 tablets daily VALIUM 5 MG TAB 303208 DIAZEPAM Inactive FLAGYL 500 MG TAB 1 tablet by mouth bid FLAGYL 500 MG TAB 556647 METRONIDAZOLE Inactive DICLOFENAC POTASSIUM TABS Take 1 tablet twice a day (pt. is not sure of the dose.) DICLOFENAC POTASSIUM TABS DICLOFENAC POTASSIUM TABS Inactive ZITHROMAX Z-EARNEST 250 MG TABS 2 today and then 1 daily for 4 days ZITHROMAX Z-EARNEST 250 MG TABS 8097810 AZITHROMYCIN Inactive PREDNISONE 20 MG TABS 2 daily for 5 days then 1 daily for 5 days PREDNISONE 20 MG TABS 150173 PREDNISONE Inactive PROAIR HFA 108 (90 BASE) MCG/ACT AERS 2 puffs four times a day as needed 2015 PROAIR HFA 108 (90 BASE) MCG/ACT AERS ALBUTEROL SULFATE Inactive HYDROCODONE-ACETAMINOPHEN 5-325 MG TABS 1 to 2 four times a day as needed for pain use until can be seen by specialist HYDROCODONE- ACETAMINOPHEN 5-325 MG TABS 734188 HYDROCODONE-ACETAMINOPHEN Inactive TESSALON PERLES 100 MG CAP 1 to 2 tablets by mouth 3 times daily as needed for cough TESSALON PERLES 100 MG CAP 157083 BENZONATATE Inactive CHANTIX STARTING MONTH EARNEST 0.5 [...] Pain 2015 DICLOFENAC SODIUM 50 MG TBEC 190110 DICLOFENAC SODIUM Inactive TOPAMAX 50 MG ORAL TABS 1 tab twice daily TOPAMAX 50 MG ORAL TABS 813722 TOPIRAMATE Inactive VIIBRYD 10 MG ORAL TABS Take 1 tablet once a day VIIBRYD 10 MG ORAL TABS VILAZODONE HCL Inactive LEVOFLOXACIN 500 MG ORAL TABS po daily LEVOFLOXACIN 500 MG ORAL TABS 188770 LEVOFLOXACIN Inactive METHYLPREDNISOLONE 4 MG ORAL TABS po daily METHYLPREDNISOLONE 4 MG ORAL TABS 512833 METHYLPREDNISOLONE Inactive OXYCODONE HCL ER 10 MG ORAL T12A 1/2 tab by mouth every 4 hours prn OXYCODONE HCL ER 10 MG ORAL T12A OXYCODONE HCL Inactive FLAGYL 500 MG TAB 1 tablet by mouth bid FLAGYL 500 MG TAB 565895 METRONIDAZOLE Inactive MONISTAT 7 COMBO PACK WOODROW 100 & 2 MG-% (9GM) VAG KIT 1 applicatorful per vagina q pm x 7 MONISTAT 7 COMBO PACK WOODROW 100 & 2 MG-% (9GM) VAG KIT MICONAZOLE NITRATE Inactive BACTRIM DS 800-160 MG TABS 1 twice a day BACTRIM DS 800-160 MG TABS 923271 SULFAMETHOXAZOLE-TRIMETHOPRIM Inactive TRAMADOL HCL 50 MG TABS 1/2-1 tab TID PRN TRAMADOL HCL 50 MG TABS 145105 TRAMADOL HCL Inactive ABILIFY MAINTENA 400 MG IM SUSR 400mg injection every 26 days ABILIFY MAINTENA 400 MG IM SUSR ARIPIPRAZOLE Inactive KLONOPIN 1 MG ORAL TABS 1 tab po TID KLONOPIN 1 MG ORAL TABS 297365 CLONAZEPAM Inactive ADVAIR DISKUS 250-50 MCG/DOSE INH AEPB 1 puff twice a day for asthma ADVAIR DISKUS 250-50 MCG/DOSE INH AEPB FLUTICASONE- SALMETEROL Inactive BENADRYL 25 MG CAP 4 po at bedtime for insomnia BENADRYL 25 MG CAP DIPHENHYDRAMINE HCL Inactive PREDNISONE 20 MG TABS 2 daily for 5 days then 1 daily for 5 days PREDNISONE 20 MG TABS 555739 PREDNISONE Inactive HYDROCODONE-ACETAMINOPHEN 5-325 MG ORAL TABS 1 tab two times a day HYDROCODONE-ACETAMINOPHEN 5-325 MG ORAL TABS 511233 HYDROCODONE-ACETAMINOPHEN Inactive ZITHROMAX Z-EARNEST 250 MG TABS 2 today and then 1 daily for 4 days ZITHROMAX Z-EARNEST 250 MG TABS 8053871 AZITHROMYCIN Inactive GUAIFENESIN-CODEINE 100-10 MG/5ML SYRP 5ml every 4 to 6 hours as needed for cough GUAIFENESIN-CODEINE 100-10 MG/5ML SYRP 671377 GUAIFENESIN-CODEINE Inactive HALOPERIDOL 10 MG ORAL TABS 1 tab q.d HALOPERIDOL 10 MG ORAL TABS [id number] HALOPERIDOL Inactive ASPIRIN 325 MG ORAL TABS 1 tab q.d ASPIRIN 325 MG ORAL TABS [id number] ASPIRIN Inactive FLUTICASONE PROPIONATE 50 MCG/ACT SUSP 2 sprays each nostril daily before bed. FLUTICASONE PROPIONATE 50 MCG/ACT SUSP [id number] FLUTICASONE PROPIONATE Inactive ZOFRAN 4 MG TABS 1 po q6hr PRN Nausea ZOFRAN 4 MG TABS [id number] ONDANSETRON HCL Inactive KEFLEX 500 MG CAP 1 po qid KEFLEX 500 MG CAP [id number] CEPHALEXIN Inactive ACETAMINOPHEN-CODEINE 120-12 MG/5ML SOLN 5 ml by mouth every 4-6 hours if needed for cough ACETAMINOPHEN-CODEINE 120-12 MG/5ML SOLN [id number] ACETAMINOPHEN-CODEINE Inactive PREDNISONE 20 MG TAB 1 tablet daily x 4 days PREDNISONE 20 MG TAB 535264 PREDNISONE Inactive TROPICAMIDE 0.5 % OPHTH SOLN 1 drop PRN eye spasms TROPICAMIDE 0.5 % OPHTH SOLN 030707 TROPICAMIDE Inactive LEVAQUIN 500 MG TABS 1 daily for infection LEVAQUIN 500 MG TABS 071992 LEVOFLOXACIN Inactive PREDNISONE 10 MG TABS 2 daily for 5 days then 1 daily for 5 days PREDNISONE 10 MG TABS 485772 PREDNISONE Inactive EQ NICOTINE 21 MG/24HR TRANS [...] for cough TESSALON PERLES 100 MG CAPS 206248 BENZONATATE Inactive AMITIZA 8 MCG ORAL CAPS [...] twice a day MUPIROCIN 2 % OINT 074742 MUPIROCIN Inactive BACTRIM DS 800-160 MG TAB Take one (1) tablet by mouth twice a day for 5 days BACTRIM DS 800-160 MG TAB 19820521 TRIMETHOPRIM- SULFAMETHOXAZOLE Inactive LACTULOSE 10 GM/15ML ORAL SOLN 30mL oral BID for IBS-C LACTULOSE 10 GM/15ML ORAL SOLN 503151 LACTULOSE Inactive MIRALAX ORAL POWD 17GMS DAILY IN WATER MIRALAX ORAL POWD 322368 POLYETHYLENE GLYCOL 3350 Inactive CEFDINIR 300 MG CAPS by mouth twice a day CEFDINIR 300 MG CAPS 741968 CEFDINIR Inactive PREDNISONE 20 MG TAB 2 tabs daily for 3 days, 1 tab daily for 3 days, 1/2 tab daily for 2 days PREDNISONE 20 MG TAB 838525 PREDNISONE Inactive BACTRIM DS 800-160 MG TABS [...] x 10 days KEFLEX 500 MG CAP 934647 CEPHALEXIN Inactive Advance Directives Directive Description Start Date DISCUSSED WITH PATIENT -- NO DECISION MADE Vital Signs Date Name Value Unit Range Description blood pressure, diastolic 73 mm[Hg] BP mcnally [...] 267.5 [lb_av] Weight Measured blood pressure, diastolic 83 mm[Hg] BP mcnally blood pressure, systolic 129 mm[Hg] BP sys pulse rate E&M 100 /min Heart rate temperature E&M 96.6 [degF] Body temperature weight E&M 271 [lb_av] Weight Measured Diagnostic Results Date Name [...] % 11.0-15.0 platelet count 443 THOUSAND/UL 10*3/mm3 814-808 4553/03/01 mean platelet volume 8.2 fL 7.5-12.5 leukocyte [...] % 11.0-15.0 platelet count 349 THOUSAND/UL 10*3/mm3 303-814 9399/04/12 mean platelet volume 8.4 fL 7.5-12.5 Lab [...] 369 10^3/MM^3 10*3/mm3 142-424 Lab Report: Chlamydia/GC APTIMA/06692 - Lab chlamydia DNA probe NOT DETECTED NOT DETECTED Lab Report: Chlamydia/GC APTIMA/47855 - Microbiology Neisseria gonorrhoeae DNA probe NOT DETECTED NOT DETECTED Lab Report: Chlamydia/GC APTIMA/57093, Urinalysis, Complete, with Reflex ... - Lab chlamydia DNA probe NOT DETECTED NOT DETECTED Lab Report: Chlamydia/GC APTIMA/20132, Urinalysis, Complete, with Reflex ... - Microbiology Neisseria gonorrhoeae DNA probe NOT DETECTED NOT DETECTED Lab Report: Chlamydia/GC APTIMA/94798, Urinalysis, Complete, with Reflex ... - Urinalysis microalbumin/total urine volume 2 mg/L Units converted. See lab report for original value. microalbumin/creatinine ratio, urine 9 MCG/MG CREAT mg/L <30 Lab Report: Comp. Metabolic Panel - Chemistry urea nitrogen, blood 13 mg/dL 7-18 creatinine, serum 0.88 mg/dL 0.55-1.30 alanine aminotransferase (SGPT), serum 54 U/L 12-78 aspartate aminotransferase (SGOT), serum 29 U/L 15-37 calcium, serum 9.7 mg/dL 8.5-10.1 bilirubin, serum, total 0.30 mg/dL 0.00-1.00 blood glucose 80 mg/dL 65-110 chloride, serum 103 mmol/L 98-107 potassium, serum 5.0 mmol/L 3.5-5.2 carbon dioxide, venous blood 33.7 mmol/L 21.0-32.0 sodium, serum 140 mmol/L 053-157 6832/06/28 sodium, serum 140 mmol/L 354-919 6846/06/28 carbon dioxide, venous blood 23.8 mmol/L 21.0-32.0 [...] AUTO - Chemistry protein, total urine random Trace mg/dL Negative protein, total urine random Negative mg/dL Negative RBC, urine, dipstick 1+ Negative protein, total urine random Negative mg/dL Negative RBC, urine, dipstick Negative Negative RBC, urine, dipstick Negative Negative protein, [...] Negative Negative urobilinogen, urine, semiquantitative (dipstick) 0.2 E.U./dL Normal leukocyte esterase, urine, by dipstick Negative Negative nitrite, urine, semiquantitative Negative Negative urine color Yellow Colorless;Lightyellow;Straw;Yellow appearance, urine Clear Clear specific gravity, urine <=1.005 1.000-1.030 pH, urine, semiquantitative 5.5 5.0-8.5 urobilinogen, urine, semiquantitative (dipstick) 0.2 Normal leukocyte esterase, urine, by dipstick Trace Negative nitrite, urine, semiquantitative Negative Negative appearance, urine Clear Clear specific gravity, urine 1.020 1.000-1.030 glucose, urine, semiquantitative Negative Negative ketones, urine, [...] strip 1+ Negative bilirubin, urine 1+ Negative urine color Yellow Colorless;Lightyellow;Straw;Yellow appearance, urine Clear Clear specific gravity, urine >=1.030 1.000-1.030 pH, urine, semiquantitative 5.0 5.0-8.5 pH, urine, semiquantitative 6.0 5.0-8.5 Encounters Code Encounter Date Provider Facility CPT-17968 Level 3 Est. [facility] 11:08:[facility] Est[facility] Patient 15:55:20 CDT Suzan [facility]3] CPT-08043 Level 4 Est. Patient 10:49:34 CDT [facility] CPT-91217 Level 3 Est. Patient 10:00:25 CDT Suzan Boo [facility] CPT-51692 Level 3 Est. Patient 10:29:30 CDT Suzan Boo [facility] CPT-91455 Level 3 Est. Patient 11:04:38 CDT Renzo Barajas [facility] CPT-67149 Level 3 Est. Patient 11:15:58 [employer] Renzo Thornton [facility]-31430 Level 3 Est. Patient 15:28:23 [employer] Suzan Boo [facility] CPT-14240 Level 4 Est. Patient 10:20:54 [employer] Suzan Boo [facility]-66188 Level 3 Est. Patient 11:47:37 [employer] Ahmet Carbajal MD [facility]-61875 Level 3 Est. Patient 10:40:11 [employer] Ahmet Carbajal MD [facility]-56307 Level 3 Est. Patient 15:07:06 [employer] Neeraj Collins MD [facility] CPT-62360 Level 4 Est. Patient 14:45:00 [employer] Ahmet Carbajal MD [facility] CPT-83311 Level 3 Est. Patient 13:59:59 CDT 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 [facility] CPT-85771 Level 3 Est. Patient 18:18:53 CDT Neeraj Collins MD [facility] CPT-84771 Level 3 Est. Patient 15:50:44 CDT Vishal Hui MD [facility] CPT-64982 Level 3 Est. Patient 11:36:17 CDT Ahmet Carbajal MD [facility]-20341 Level 3 Est. Patient 13:29:16 CDT Vishal Hui MD [facility] CPT-57667 Level 3 Est. Patient 14:27:52 CDT Neeraj Collins MD [facility] CPT-45631 Level 3 Est. Patient 08:56:03 CDT 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 [facility] CPT-54716 Level 4 Est. Patient 12:11:48 CDT Fabiola Johnson [facility] CPT-65528 Level 3 New Patient 16:53:37 CDT Albert Caldera MD [facility] CPT-43713 Level 3 Est. Patient 11:25:49 CDT Renzo Thornton DO [facility] CPT-15665 Level 3 Est. Patient 15:22:01 CDT Ahmet Carbajal MD [facility] CPT-74747 Level 4 Est. Patient 09:00:51 [employer] Vishal Hui MD [facility] CPT-26097 Level 3 Est. Patient 11:37:33 [employer] Vishal Hui MD [facility] CPT-24869 Level 3 Est. Patient 08:41:09 [employer] Vishal Hui MD [facility] CPT-74584 Level 4 Est. Patient 10:19:35 [employer] Vishla Hui MD [facility] CPT-88853 Level 3 Est. Patient 13:35:45 CDT Vishal Hui MD [facility] CPT-37176 Level 4 Est. Patient 10:08:37 CDT Vishal Hui MD [facility] CPT-86703 Level 3 Est. Patient 11:22:10 CDT Vishal Hui MD [facility] CPT-07326 Level 3 Est. Patient 11:03:32 CDT Sahara Rodriguez MD PhD [facility] CPT-51188 Level 3 Est. Patient 09:41:35 CDT Vishal Hui MD [facility] CPT-07669 Level 3 Est. Patient 12:00:41 CDT Neeraj Collins MD [facility] CPT-23293 Level 3 Est. Patient 09:16:24 CDT Vishal Hui MD [facility] CPT-00394 Level 4 Est. Patient 13:59:09 CDT Neeraj Collins MD [facility] CPT-02686 Level 3 Est. Patient 15:19:43 CDT Renzo Thornton [facility] CPT-20192 Level 3 Est. Patient 18:10:26 CDT Sahara Rodriguez MD [facility] CPT-99108 Level 3 Est. Patient 14:49:50 CDT Vishal Hui MD [facility] CPT-46269 Level 4 Est. Patient 18:41:46 CDT Neeraj Collins MD [facility] CPT-24004 Level 4 Est. Patient 09:18:38 [employer] Vishal Hui MD [facility] CPT-57288 Level 3 Est. Patient 14:43:55 [employer] Vishal Hui MD [facility] CPT-46499 Level 3 Est. Patient 15:26:33 [employer] Sahara Rodriguez MD [facility] CPT-61110 Level 3 Est. Patient 10:32:14 [employer] Vishal Hui MD [facility] CPT-96657 Level 3 Est. Patient 15:12:52 [employer] Vishal Hui MD [facility] CPT-75989 Level 4 Est. Patient 09:19:27 CDT Vishal Hui MD [facility] CPT-48103 Level 3 Est. Patient 15:53:00 CDT Renzo Thornton [facility] CPT-70295 Level 3 Est. Patient 15:50:30 CDT Renzo Thornton [facility] CPT-60472 Level 3 Est. Patient 16:55:24 CDT Vishal Hui MD [facility] Procedures Code Procedure Name Date Entry Date Standard Description CPT-14622 EKG Trac and Interp - XRAY USE ONLY 15:59:30 CDT 09/13 CPT-24607 Chest 1V Frontal - XRAY USE ONLY 15:59:30 CDT CPT-26717 Venipuncture Draw Fee 15:44:02 CDT CPT-59568 Venipuncture Draw Fee 08:41:12 CDT CPT-07662 Abd compl w upright - XRAY USE ONLY 10:27:59 CDT 06/28 CPT-13051 Smoking Cessation counseling 11:15:58 [employer] CPT-G0439 Subsequent Annual Wellness Exam 09:30:58 [employer] CPT-21829 TSH - LAB USE ONLY 08:50:26 [employer] CPT-06702 CBC - LAB USE ONLY 08:50:26 [employer] CPT-81212 Venipuncture Draw Fee 08:50:26 [employer] CPT-92865 Abx/Therapy Injection 17:34:30 [employer] CPT-51450 Nexplanon Removal with Reinsertion 14:09:32 CDT CPT-J7307 Nexplanon (Implant) 14:09:32 CDT CPT-OV Office Visit 14:09:32 CDT CPT-33483 UA w micro - LAB USE ONLY 16:21:13 CDT CPT-33969 Wet Mount - LAB USE ONLY 16:21:13 CDT CPT-60030 First Vx - Ix admin for Medicare patients 14:37:47 CDT CPT-84175 Fluzone Preservative Free Intramuscular Suspension 14:37 :47 CDT CPT-31327 Abx/Therapy Injection 13:54:22 CDT CPT-35314 Abx/Therapy Injection 08:47:09 CDT CPT-88626 Abx/Therapy Injection 13:29:56 CDT CPT-25161 Abx/Therapy Injection 08:36:16 CDT CPT-71861 [place] - LAB USE ONLY 17:44:58 CDT CPT-81833 UA w micro - LAB USE ONLY 17:44:58 CDT CPT-18076 CMP - LAB USE ONLY 17:44:58 CDT CPT-29910 Venipuncture Draw Fee 17:44:58 CDT CPT-77109 Cervical Min 4V - XRAY USE ONLY 09:01:40 CDT CPT-56330 Chest 2V Frontal and Lat - XRAY USE ONLY 11:06:31 CDT CPT-43845 EKG Trac and Interp - XRAY USE ONLY 11:31:43 CDT 08/26 CPT-J3420 Vitamin B12 1000mcg (Cyanocobalamin) 08:10:26 [employer] 04/12 CPT-49336 Abx/Therapy Injection 08:10:26 [employer] CPT-G0438 Initial Annual Wellness Exam 19:01:01 [employer] CPT-J3420 Vitamin B12 1000mcg (Cyanocobalamin) 16:57:46 CDT 08/14 CPT-47579 Recombivax HB Injection Suspension 5 MCG/0.5ML 08:37:50 [employer] CPT-76234 Immunization Single Admin 08:37:50 [employer] CPT-J3420 Vitamin B12 1000mcg (Cyanocobalamin) 08:32:16 [employer] 03/11 CPT-14710 Abx/Therapy Injection 08:32:16 [employer] CPT-79871 Chest 2V Frontal and Lat 11:46:38 [employer] CPT-16670 Venipuncture Draw Fee 09:12:45 [employer] CPT-J3420 Vitamin B12 1000mcg (Cyanocobalamin) 08:50:15 [employer] 02/08 CPT-18513 Abx/Therapy Injection 08:50:15 [employer] CPT-Cryo Cryotherapy 10:19:35 [employer] CPT-000 Give Appropriate Flu Vaccine 09:22:16 CDT CPT-J3420 Vitamin B12 1000mcg (Cyanocobalamin) 19:08:57 CDT 01/11 CPT-82566 Abx/Therapy Injection 19:08:57 CDT CPT-J3420 Vitamin B12 1000mcg (Cyanocobalamin) 08:19:08 CDT 12/11 CPT-35793 Abx/Therapy Injection 08:19:08 CDT CPT-J3420 Vitamin B12 1000mcg (Cyanocobalamin) 14:48:00 CDT 11/09 CPT-80888 Abx/Therapy Injection 14:47:59 CDT CPT-J3420 Vitamin B12 1000mcg (Cyanocobalamin) 08:34:04 CDT 10/09 CPT-75464 Abx/Therapy Injection 08:34:04 CDT CPT-J3420 Vitamin B12 1000mcg (Cyanocobalamin) 09:18:52 CDT 09/11 CPT-95744 Abx/Therapy Injection 09:18:52 CDT CPT-J3420 Vitamin B12 1000mcg (Cyanocobalamin) 08:35:44 CDT 09/04 CPT-64037 Abx/Therapy Injection 08:35:44 CDT CPT-49889 Immunization Single Admin 11:07:16 CDT CPT-41953 Hepatitis B adult IM 11:07:16 CDT CPT-J3420 Vitamin B12 1000mcg (Cyanocobalamin) 11:00:49 CDT 08/28 CPT-J1040 Depo Medrol 80 mg (Methyl Prednisolone Acetate) 11:00: 49 CDT CPT-70313 Abx/Therapy Injection 11:00:49 CDT CPT-J1040 Depo Medrol 80 mg (Methyl Prednisolone Acetate) 09:16: 23 CDT CPT-J3420 Vitamin B12 1000mcg (Cyanocobalamin) 08:27:05 CDT 08/20 CPT-51659 Abx/Therapy Injection 08:27:05 CDT CPT-39831 Recombivax HB Injection Suspension 5 MCG/0.5ML 10:00:41 CDT CPT-29217 Administration single or combination vaccine inc oral 10 :00:41 CDT CPT-52915 Sono transvag pelvis non OB uterus ovaries cervix 16:36: 57 CDT CPT-24286 LS spine comp w obliq 09:50:55 [employer] CPT-03042 Abd compl w upright 09:50:55 [employer] CPT-J1100 Decadron 4mg (Dexamethasone) 15:51:24 [employer] CPT-J1030 Depo Medrol 40 mg (Methyl Prednisolone Acetate) 15:51: 24 [employer] CPT-11690 Abx/Therapy Injection 15:51:24 [employer] CPT-J1100 Decadron 4mg (Dexamethasone) 15:26:33 [employer] CPT-J1030 Depo Medrol 40 mg (Methyl Prednisolone Acetate) 15:26: 33 [employer] CPT-64754 Sono retroperitoneal complete kidneys and bladder 17:15: 30 CDT CPT-34282 Abd compl w upright 16:09:25 CDT CPT-J1100 Decadron 8mg (Dexamethasone) 17:07:57 CDT CPT-55318 Abx/Therapy Injection 17:07:57 CDT CPT-J1100 Decadron 8mg (Dexamethasone) 16:55:24 CDT CPT-25412 Chest 2V Frontal and Lat 16:32:44 CDT
--- OUTSIDE RECORDS SUMMARY | 2016-11-04 11:34 | XMS REPORT | Clinical Summary ---
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 V72.31 Active Suzan Boo [...] MD Health screening ICD-V70.0 Inactive Suzan Boo ARCHITECTURE ANALYST Sinus tachycardia ICD-427.89 Inactive Suzan Boo ARCHITECTURE ANALYST Smoker/tobacco use disorder-smoking cessation discussed ICD-305.1 [...] MCG ORAL CAPS 1 tab BID LUBIPROSTONE 00966649009 Active Lynda Madl SAMPLER RADIOACTIVE WASTE Active DIFLUCAN 150 MG TABS 1 by mouth for yeast FLUCONAZOLE 75354329047 Active Suzan Boo APRN Active LACTULOSE 10 GM/15ML ORAL SOLN 30mL oral BID for IBS-C LACTULOSE 08631454264 Active Suzan Boo APRN Active BACTRIM DS 800-160 MG TABS 1 twice a day SULFAMETHOXAZOLE- TRIMETHOPRIM 53262678460 Active Lyndaveda Xiao LPN Active MUPIROCIN 2 % OINT apply twice a day MUPIROCIN 52131541825 Active Suzan Boo APRN Active TESSALON PERLES 100 MG CAPS 1 three times a day as needed for cough BENZONATATE 71573848740 No Longer Active Suzan Boo APRN Active BACTRIM DS 800-160 MG TABS 1 twice a day SULFAMETHOXAZOLE-TRIMETHOPRIM 52964072153 No Longer Active Suzan Boo APRN Active DIFLUCAN 150 MG TABS 1 by mouth for yeast FLUCONAZOLE 62940812347 No Longer Active Suzan Boo APRN Active EQ NICOTINE 21 MG/24HR TRANS PT24 Apply daily to stop smoking NICOTINE 80248872998 No Longer Active Suzan Boo APRN Active PREDNISONE 10 MG TABS 2 daily for 5 days then 1 daily for 5 days PREDNISONE 24756269366 No Longer Active Suzan Boo APRN Active LEVAQUIN 500 MG TABS 1 daily for infection LEVOFLOXACIN 12512496120 No Longer Active Suzan Boo APRN Active TROPICAMIDE 0.5 % OPHTH SOLN 1 drop PRN eye spasms TROPICAMIDE 86840083837 No Longer Active Suzan Boo APRN Active PREDNISONE 20 MG TAB 1 tablet daily x 4 days PREDNISONE 31091748240 No Longer Active Suzan Boo APRN Active ACETAMINOPHEN-CODEINE 120-12 MG/5ML SOLN 5 ml by mouth every 4-6 hours if needed for cough ACETAMINOPHEN-CODEINE 02262087735 No Longer Active Suzan Boo APRN Active KEFLEX 500 MG CAP 1 po qid CEPHALEXIN 34892862995 No Longer Active Suzan Boo APRN Active FLOVENT HFA 110 MCG/ACT AERO 2 puffs inhaled b.i.d. FLUTICASONE PROPIONATE HFA 51861330705 Active Renzo Thornton DO Active RISPERDAL 4 MG ORAL TABS 1 tab at bedtime RISPERIDONE 34968387227 Active Samantha Stephan RMA Active ZOFRAN 4 MG TABS 1 po q6hr PRN Nausea ONDANSETRON HCL No Longer Active Suzan Boo APRN Active FLUTICASONE PROPIONATE 50 MCG/ACT SUSP 2 sprays each nostril daily before bed. FLUTICASONE PROPIONATE 24722631046 No Longer Active Suzan Boo APRN Active ASPIRIN 325 MG ORAL TABS 1 tab q.d ASPIRIN 72143189043 No Longer Active Suzan Boo APRN Active HALOPERIDOL 10 MG ORAL TABS 1 tab q.d HALOPERIDOL 51603721436 No Longer Active Suzan Boo APRN Active GUAIFENESIN-CODEINE 100-10 MG/5ML SYRP 5ml every 4 to 6 hours as needed for cough GUAIFENESIN-CODEINE 30642790266 No Longer Active Suzan Boo APRN Active ZITHROMAX Z-EARNEST 250 MG TABS 2 today and then 1 daily for 4 days AZITHROMYCIN 45693525166 No Longer Active Suzan Boo APRN Active CLONAZEPAM 1 MG ORAL TABS 1 twice a day and an additional 1 tablet every other day as needed for pseudoseizures or anxiety CLONAZEPAM 08923755467 Active Suzan Boo APRN Active HYDROCODONE-ACETAMINOPHEN 5-325 MG ORAL TABS 1 tab two times a day HYDROCODONE-ACETAMINOPHEN 34531381902 No Longer Active Ahmet Carbajal MD Active LAMICTAL 100 MG ORAL TABS 1 tab 2 times qd. LAMOTRIGINE 09419193167 Active Ahmet Carbajal MD Active PREDNISONE 20 MG TABS 2 daily for 5 days then 1 daily for 5 days PREDNISONE 79629462456 No Longer Active Ahmet Carbajal MD Active FLUTICASONE PROPIONATE 50 MCG/ACT SUSP 1 to 2 sprays each nostril daily for allergies FLUTICASONE PROPIONATE 16460448494 Active Tila Nicolas Active BENADRYL 25 MG CAP 4 po at bedtime for insomnia DIPHENHYDRAMINE HCL 21377276773 No Longer Active Ahmet Carbajal MD Active ADVAIR DISKUS 250-50 MCG/DOSE INH AEPB 1 puff twice a day for asthma FLUTICASONE-SALMETEROL 22029481706 No Longer Active Ahmet Carbajal MD Active KLONOPIN 1 MG ORAL TABS 1 tab po TID CLONAZEPAM 05029771315 No Longer Active Ahmet Carbajal MD Active ABILIFY MAINTENA 400 MG IM SUSR 400mg injection every 26 days ARIPIPRAZOLE 43070291844 No Longer Active Ahmet Carbajal MD Active TRAMADOL HCL 50 MG TABS 1/2-1 tab TID PRN TRAMADOL HCL 86233338767 No Longer Active Ahmet Carbajal MD Active BACTRIM DS 800-160 MG TABS 1 twice a day SULFAMETHOXAZOLE- TRIMETHOPRIM 05282970702 No Longer Active Ahmet Carbajal MD Active PROAIR HFA 108 (90 BASE) MCG/ACT AERS 2 puffs four times a day as needed 2015 ALBUTEROL SULFATE 54934872428 Active Honey Hinton ARCHITECTURE ANALYST Active MONISTAT 7 COMBO PACK WOODROW 100 & 2 MG-% (9GM) VAG KIT 1 applicatorful per vagina q pm x 7 MICONAZOLE NITRATE 18306496468 No Longer Active Ahmet Carbajal MD Active FLAGYL 500 MG TAB 1 tablet by mouth bid METRONIDAZOLE 60598012721 No Longer Active Ahmet Carbajal MD Active OXYCODONE HCL ER 10 MG ORAL T12A 1/2 tab by mouth every 4 hours prn OXYCODONE HCL 15605289740 No Longer Active Ahmet Carbajal MD Active METHYLPREDNISOLONE 4 MG ORAL TABS po daily METHYLPREDNISOLONE 19576770365 No Longer Active Ahmet Carbajal MD Active LEVOFLOXACIN 500 MG ORAL TABS po daily LEVOFLOXACIN 42353713178 No Longer Active Ahmet Carbajal MD Active VIIBRYD 10 MG ORAL TABS Take 1 tablet once a day VILAZODONE HCL 76091002206 No Longer Active Ahmet Carbajal MD Active TOPAMAX 50 MG ORAL TABS 1 tab twice daily TOPIRAMATE 08947556979 No Longer Active Ahmet Carbajal MD Active DICLOFENAC SODIUM 50 MG TBEC 1 tablet by mouth four times daily PRN Pain 2015 DICLOFENAC SODIUM 84659016652 No Longer Active Ahmet Carbajal MD Active ADZENYS XR-ODT 6.3 MG ORAL TBED 1 tab po daily for ADHD AMPHETAMINE 16926336020 No Longer Active Ahmet Carbajal MD Active CHANTIX 1 MG TABS 1 twice a day to help quit smoking VARENICLINE TARTRATE 25427992846 No Longer Active Dipika Burgos MD Active CHANTIX STARTING MONTH EARNEST 0.5 MG X 11 & 1 MG X 42 TABS take as directed 2015 VARENICLINE TARTRATE 16934749516 No Longer Active Dipika Burgos MD Active TESSALON PERLES 100 MG CAP 1 to 2 tablets by mouth 3 times daily as needed for cough BENZONATATE 66135688724 No Longer Active 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 APRN Active IMITREX 50 MG ORAL TABS 0.5 po x 1 PRN Headache. May repeat dose x 1 in 2 hours if needed SUMATRIPTAN SUCCINATE 22372676873 Active Ahmet Carbajal MD Active HYDROCODONE-ACETAMINOPHEN 5-325 MG TABS 1 to 2 four times a day as needed for pain use until can be seen by specialist HYDROCODONE- ACETAMINOPHEN 28761646992 No Longer Active Vishal Hui MD Active PROAIR HFA 108 (90 BASE) MCG/ACT AERS 2 puffs four times a day as needed 2015 ALBUTEROL SULFATE 53692019706 No Longer Active Vishal Hui MD Active PREDNISONE 20 MG TABS 2 daily for 5 days then 1 daily for 5 days PREDNISONE 17814054602 No Longer Active Vishal Hui MD Active ZITHROMAX Z-EARNEST 250 MG TABS 2 today and then 1 daily for 4 days AZITHROMYCIN 35187555969 No Longer Active Vishal Hui MD Active DICLOFENAC POTASSIUM TABS Take 1 tablet twice a day (pt. is not sure of the dose.) DICLOFENAC POTASSIUM TABS 28866062178 No Longer Active Vishal Hui MD Active VERAPAMIL HCL ER 120 MG ORAL CR-TABS Take 1 tablet by mouth twice a day. VERAPAMIL HCL 65431068597 Active Vishal Hui MD Active FLAGYL 500 MG TAB 1 tablet by mouth bid METRONIDAZOLE 34208359245 No Longer Active Vishal Hui MD Active VALIUM 5 MG TAB Take 1-2 tablets daily DIAZEPAM 77448002066 No Longer Active Fabiola Johnson APRN Active METOPROLOL TARTRATE 25 MG ORAL TABS 1/2 tablet twice daily for heart rate and blood pressure METOPROLOL TARTRATE 90789709121 No Longer Active Fabiola Johnson APRN Active MIRALAX ORAL POWD 17GMS DAILY IN WATER POLYETHYLENE GLYCOL 3350 43088074025 Active TAMARA Casey Active MIRALAX PACK 1 po qd PRN Constipation POLYETHYLENE GLYCOL 3350 39935323559 No Longer Active Ahmet Carbajal MD Active MINIPRESS 2 MG CAPS 4 cap po at night PRAZOSIN HCL 50687422025 No Longer Active Ahmet Carbajal MD Active PIROXICAM 20 MG CAPS 1 cap po qd PRN Pain PIROXICAM 81803861075 No Longer Active Ahmet Carbajal MD Active TRAMADOL HCL 50 MG TABS 1-2 po TID PRN Pain TRAMADOL HCL 22927351956 No Longer Active Ahmet Carbajal MD Active METOPROLOL TARTRATE 50 MG TAB 1 po bid METOPROLOL TARTRATE 96359020020 No Longer Active Ahmet Carbajal MD Active ABILIFY 15 MG ORAL TABS 1 tab daily ARIPIPRAZOLE 33333477208 No Longer Active Ahmet Carbajal MD Active PROZAC 20 MG ORAL CAPS 1 tab daily FLUOXETINE HCL 30319293579 No Longer Active Ahmet Carbajal MD Active AMBIEN 5 MG ORAL TABS 1 tab at bedtime ZOLPIDEM TARTRATE 25482235586 No Longer Active Ahmet Carbajal MD Active PREDNISONE 20 MG TAB 2 tabs daily for 4 days, 1 tab daily for 4 days, 1/2 tab daily for 4 days PREDNISONE 64782699418 No Longer Active Ahmet Carbajal MD Active KEFLEX 500 MG CAP 1 po TID x 10 days CEPHALEXIN 44118774526 No Longer Active Vishal Hui MD Active SAPHRIS 5 MG SUBL 1 po bid ASENAPINE MALEATE 97694241490 No Longer Active Jillina Frazell ARCHITECTURE ANALYST Active LATUDA 80 MG TABS Take one by mouth daily LURASIDONE HCL 99149998527 No Longer Active Jillina Frazell ARCHITECTURE ANALYST Active AMLODIPINE BESYLATE 5 MG TABS 1 tablet by mouth daily AMLODIPINE BESYLATE 73684089016 No Longer Active Jillina Frazell ARCHITECTURE ANALYST Active AMITRIPTYLINE HCL 100 MG TAB one at hs AMITRIPTYLINE HCL 44787138973 No Longer Active Vishal Hui MD Active TRAZODONE HCL 100 MG TAB take 1 at bedtime TRAZODONE HCL 56075603134 No Longer Active Vishal Hui MD Active VYVANSE 40 MG CAPS 1 daily, LISDEXAMFETAMINE DIMESYLATE 20019988701 No Longer Active Vishal Hui MD Active IBUPROFEN 600 MG TAB 1 po TID PRN IBUPROFEN 90268590902 No Longer Active Vishal Hui MD Active PROZAC 20 MG CAP Take one by mouth daily FLUOXETINE HCL 87719603598 No Longer Active Vishal Hui MD Active BACTRIM DS 800-160 MG TABS 1 pill by mouth twice daily SULFAMETHOXAZOLE-TRIMETHOPRIM 51890223736 No Longer Active Sahara Rodriguez MD PhD Active DIFLUCAN 150 MG TAB 1 tablet by mouth daily FLUCONAZOLE 90188270636 No Longer Active Vishal Hiu MD Active TIZANIDINE HCL 4 MG TABS 1 po q6hr PRN Muscle Spasm/Back Pain TIZANIDINE HCL 00689705485 Active Vishal Hui MD Active CLINDAMYCIN HCL 150 MG CAPS 1 four times a day CLINDAMYCIN HCL 36612316402 No Longer Active Neeraj Collins MD Active KEFLEX 500 MG ORAL CAPS 1 cap QID by mouth CEPHALEXIN 92470586648 No Longer Active Neeraj Collins MD Active DIFLUCAN 150 MG TABS 1 pill every other day x 2 doses FLUCONAZOLE 22961556750 No Longer Active Sahara Rodriguez MD PhD Active MELATONIN 3 MG CAPS 2 po q hs MELATONIN 79602395196 No Longer Active Sahara Rodriguez MD PhD Active MULTIVITAMINS CAPS Take one by mouth daily MULTIPLE VITAMIN 20598810173 No Longer Active Sahara Rodriguez MD PhD Active BACTRIM DS 800-160 MG TAB 1 tab by mouth twice daily TRIMETHOPRIM-SULFAMETHOXAZOLE 78790794688 No Longer Active Sahara Rodriguez MD PhD Active [facility] PROBIOTIC ORAL CHEW 2 daily po PROBIOTIC PRODUCT 34591907400 No Longer Active Sahara Rodriguez MD PhD Active BACTRIM DS 800-160 MG TABS 1 po BID x 7 days SULFAMETHOXAZOLE-TRIMETHOPRIM 15878900804 No Longer Active Vishal Hui MD Active CHANTIX STARTING MONTH EARNEST 0.5 MG X 11 & 1 MG X 42 TABS 0.5mg daily for 3 days , then 0.5mg BID for 4 days, then 1mg BID VARENICLINE TARTRATE 11465758231 No Longer Active TAMARA Gray Active VERAPAMIL HCL CR 120 MG TAB CR 1 po bid VERAPAMIL HCL 42884851202 No Longer Active Vishal Hui MD Active METOPROLOL SUCCINATE 50 MG TB24 1 tablet by mouth daily METOPROLOL SUCCINATE 16861304188 No Longer Active Vishal uHi MD Active SAPHRIS 10 MG SUBL 1 tab po bid ASENAPINE MALEATE 05550872801 No Longer Active Vishal Hui MD Active LISINOPRIL 20 MG TABS 1 tab po qd LISINOPRIL 47336974374 No Longer Active Vishal Hui MD Active LATUDA 20 MG TABS Take one by mouth daily LURASIDONE HCL 18703083199 No Longer Active Vishal Hui MD Active TRAZODONE HCL 50 MG TABS 1/2 tab po qd prn for anxiety TRAZODONE HCL 89212215768 No Longer Active Vishal Hui MD Active OMEPRAZOLE 20 MG TBEC 1 po q a.m. 30min prior to first food intake OMEPRAZOLE 22220814679 Active TAMARA Casey Active RANITIDINE HCL 150 MG CAPS 1 twice a day RANITIDINE HCL 33383903201 Active 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 APRN Active LINZESS 290 MCG CAPS Take one by mouth daily LINACLOTIDE 31505485566 No Longer Active Vishal Hui MD Active SAPHRIS 5 MG SUBL 1 tab po qd ASENAPINE MALEATE 52626258346 No Longer Active Vishal Hui MD Active ZALEPLON 10 MG CAPS 1 cap po every other night ZALEPLON 94535132834 No Longer Active Vishal Hui MD Active LYRICA 50 MG CAPS 1 tab po TID PREGABALIN 47550877374 No Longer Active Vishal Hui MD Active LORATADINE 10 MG TABS 1 tab po qd LORATADINE 36402413291 No Longer Active Vishal Hui MD Active VERAPAMIL HCL ER 180 MG CR-TABS 1 tab po bid VERAPAMIL HCL 53828309845 No Longer Active Vishal Hui MD Active MIRALAX POWD 1 capfull once daily POLYETHYLENE GLYCOL 3350 58970904765 No Longer Active Vishal Hui MD Active PREDNISONE 20 MG TABS 1 tab po qd PREDNISONE 98085399669 No Longer Active Renzo Thornton DO Active LEVOFLOXACIN 500 MG TABS 1 tab po qd LEVOFLOXACIN 06736043104 No Longer Active Renzo Thornton DO Active BUSPIRONE HCL 15 MG TABS 1 tab po TID BUSPIRONE HCL 13425696196 No Longer Active Renzo Thornton DO Active BENZTROPINE MESYLATE 1 MG TABS 1 tab po qd BENZTROPINE MESYLATE 08993833938 No Longer Active Renzo Thornton DO Active ATENOLOL 25 MG TABS 1 tab po qd ATENOLOL 22116853046 No Longer Active Renzo Thornton DO Active ESCITALOPRAM OXALATE 20 MG TABS 1 tab po qd ESCITALOPRAM OXALATE 06247514747 No Longer Active Renzo Thornton DO Active ADVAIR DISKUS 250-50 MCG/DOSE AEPB 1 puff BID FLUTICASONE-SALMETEROL 66204328772 No Longer Active Renzo Thornton DO Active PREDNISONE 20 MG TAB 2 tabs daily for 3 days, 1 tab daily for 3 days, 1/2 tab daily for 2 days PREDNISONE 87647654897 No Longer Active Vishal Hui MD Active CEFDINIR 300 MG CAPS by mouth twice a day CEFDINIR 25343503871 No Longer Active Vishal Hui MD Active LANSOPRAZOLE 30 MG CPDR 1 cap po qd LANSOPRAZOLE 44842906856 No Longer Active Vishal Hui MD Active BACLOFEN 20 MG TABS 1 tab po tid BACLOFEN 20806286903 No Longer Active Vishal Hui MD Active DICLOFENAC POTASSIUM TABS Take 1 tablet twice a day (pt. is not sure of the dose.) DICLOFENAC POTASSIUM TABS DICLOFENAC POTASSIUM TABS Inactive AMBIEN 5 MG ORAL TABS 1 tab at bedtime AMBIEN 5 MG ORAL TABS 035754 ZOLPIDEM TARTRATE Inactive AMITRIPTYLINE HCL 100 MG TAB one at hs AMITRIPTYLINE HCL 100 MG TAB 359279 AMITRIPTYLINE HCL Inactive ASPIRIN 325 MG ORAL TABS 1 tab q.d ASPIRIN 325 MG ORAL TABS 316311 ASPIRIN Inactive ATENOLOL 25 MG TABS 1 tab po qd ATENOLOL 25 MG TABS 503301 ATENOLOL Inactive BACTRIM DS 800-160 MG TAB 1 tab by mouth twice daily BACTRIM DS 800-160 MG TAB 19820521 TRIMETHOPRIM-SULFAMETHOXAZOLE Inactive BACTRIM DS 800-160 MG TABS 1 twice a day BACTRIM DS 800-160 MG TABS 19820521 SULFAMETHOXAZOLE-TRIMETHOPRIM Inactive BACTRIM DS 800-160 MG TABS 1 twice a day BACTRIM DS 800-160 MG TABS 19820521 SULFAMETHOXAZOLE-TRIMETHOPRIM Inactive BACTRIM DS 800-160 MG TABS 1 po BID x 7 days BACTRIM DS 800-160 MG TABS 19820521 SULFAMETHOXAZOLE-TRIMETHOPRIM Inactive BACTRIM DS 800-160 MG TABS 1 pill by mouth twice daily BACTRIM DS 800-160 MG TABS 19820521 SULFAMETHOXAZOLE-TRIMETHOPRIM Inactive BENADRYL 25 MG CAP 4 po at bedtime for insomnia BENADRYL 25 MG CAP DIPHENHYDRAMINE HCL Inactive BENZTROPINE MESYLATE 1 MG TABS 1 tab po qd BENZTROPINE MESYLATE 1 MG TABS 886740 BENZTROPINE MESYLATE Inactive CLINDAMYCIN HCL 150 MG CAPS 1 four times a day CLINDAMYCIN HCL 150 MG CAPS 509468 CLINDAMYCIN HCL Inactive FLAGYL 500 MG TAB 1 tablet by mouth bid FLAGYL 500 MG TAB 485036 METRONIDAZOLE Inactive FLAGYL 500 MG TAB 1 tablet by mouth bid FLAGYL 500 MG TAB 578050 METRONIDAZOLE Inactive HALOPERIDOL 10 MG ORAL TABS 1 tab q.d HALOPERIDOL 10 MG ORAL TABS 877689 HALOPERIDOL Inactive IBUPROFEN 600 MG TAB 1 po TID PRN IBUPROFEN 600 MG TAB 612141 IBUPROFEN Inactive KEFLEX 500 MG ORAL CAPS 1 cap QID by mouth KEFLEX 500 MG ORAL CAPS 228565 CEPHALEXIN Inactive KEFLEX 500 MG CAP 1 po qid KEFLEX 500 MG CAP 658191 CEPHALEXIN Inactive KEFLEX 500 MG CAP 1 po TID x 10 days KEFLEX 500 MG CAP 104448 CEPHALEXIN Inactive KLONOPIN 1 MG ORAL TABS 1 tab po TID KLONOPIN 1 MG ORAL TABS 757521 CLONAZEPAM Inactive LISINOPRIL 20 MG TABS 1 tab po qd LISINOPRIL 20 MG TABS 928492 LISINOPRIL Inactive METHYLPREDNISOLONE 4 MG ORAL TABS po daily METHYLPREDNISOLONE 4 MG ORAL TABS 633560 METHYLPREDNISOLONE Inactive METOPROLOL TARTRATE 50 MG TAB 1 po bid METOPROLOL TARTRATE 50 MG TAB 050985 METOPROLOL TARTRATE Inactive MINIPRESS 2 MG CAPS 4 cap po at night MINIPRESS 2 MG CAPS 274158 PRAZOSIN HCL Inactive MULTIVITAMINS CAPS Take one by mouth daily MULTIVITAMINS CAPS MULTIPLE VITAMIN Inactive PIROXICAM 20 MG CAPS 1 cap po qd PRN Pain PIROXICAM 20 MG CAPS 129300 PIROXICAM Inactive PREDNISONE 10 MG TABS 2 daily for 5 days then 1 daily for 5 days PREDNISONE 10 MG TABS 412267 PREDNISONE Inactive PREDNISONE 20 MG TAB 1 tablet daily x 4 days PREDNISONE 20 MG TAB 435944 PREDNISONE Inactive PREDNISONE 20 MG TABS 2 daily for 5 days then 1 daily for 5 days PREDNISONE 20 MG TABS 611656 PREDNISONE Inactive PREDNISONE 20 MG TAB 2 tabs daily for 3 days, 1 tab daily for 3 days, 1/2 tab daily for 2 days PREDNISONE 20 MG TAB 338055 PREDNISONE Inactive PREDNISONE 20 MG TAB 2 tabs daily for 4 days, 1 tab daily for 4 days, 1/2 tab daily for 4 days PREDNISONE 20 MG TAB 465837 PREDNISONE Inactive PREDNISONE 20 MG TABS 2 daily for 5 days then 1 daily for 5 days PREDNISONE 20 MG TABS 190378 PREDNISONE Inactive PREDNISONE 20 MG TABS 1 tab po qd PREDNISONE 20 MG TABS 563631 PREDNISONE Inactive PROZAC 20 MG CAP Take one by mouth daily PROZAC 20 MG CAP 554712 FLUOXETINE HCL Inactive PROZAC 20 MG ORAL CAPS 1 tab daily PROZAC 20 MG ORAL CAPS 216391 FLUOXETINE HCL Inactive TRAZODONE HCL 100 MG TAB take 1 at bedtime TRAZODONE HCL 100 MG TAB 934755 TRAZODONE HCL Inactive TRAZODONE HCL 50 MG TABS 1/2 tab po qd prn for anxiety TRAZODONE HCL 50 MG TABS 895956 TRAZODONE HCL Inactive TROPICAMIDE 0.5 % OPHTH SOLN 1 drop PRN eye spasms TROPICAMIDE 0.5 % OPHTH SOLN 606195 TROPICAMIDE Inactive VALIUM 5 MG TAB Take 1-2 tablets daily VALIUM 5 MG TAB 371593 DIAZEPAM Inactive ZOFRAN 4 MG TABS 1 po q6hr PRN Nausea ZOFRAN 4 MG TABS 936483 ONDANSETRON HCL Inactive AMLODIPINE BESYLATE 5 MG TABS 1 tablet by mouth daily AMLODIPINE BESYLATE 5 MG TABS 337078 AMLODIPINE BESYLATE Inactive LORATADINE 10 MG TABS 1 tab po qd LORATADINE 10 MG TABS 699780 LORATADINE Inactive TESSALON PERLES 100 MG CAP 1 to 2 tablets by mouth 3 times daily as needed for cough TESSALON PERLES 100 MG CAP 19721123 BENZONATATE Inactive TESSALON PERLES 100 MG CAPS 1 three times a day as needed for cough TESSALON PERLES 100 MG CAPS 19721123 BENZONATATE Inactive VERAPAMIL HCL CR 120 MG TAB CR 1 po bid VERAPAMIL HCL CR 120 MG TAB CR VERAPAMIL HCL Inactive DIFLUCAN 150 MG TAB 1 tablet by mouth daily DIFLUCAN 150 MG TAB 19751126 FLUCONAZOLE Inactive DIFLUCAN 150 MG TABS 1 by mouth for yeast DIFLUCAN 150 MG TABS 432279 FLUCONAZOLE Inactive DIFLUCAN 150 MG TABS 1 pill every other day x 2 doses DIFLUCAN 150 MG TABS 19751126 FLUCONAZOLE Inactive ACETAMINOPHEN-CODEINE 120-12 MG/5ML SOLN 5 ml by mouth every 4-6 hours if needed for cough ACETAMINOPHEN-CODEINE 120-12 MG/5ML SOLN 625159 ACETAMINOPHEN-CODEINE Inactive VERAPAMIL HCL ER 180 MG CR-TABS 1 tab po bid VERAPAMIL HCL ER 180 MG CR-TABS VERAPAMIL HCL Inactive TRAMADOL HCL 50 MG TABS 1/2-1 tab TID PRN TRAMADOL HCL 50 MG TABS 417535 TRAMADOL HCL Inactive TRAMADOL HCL 50 MG TABS 1-2 po TID PRN Pain TRAMADOL HCL 50 MG TABS 770508 TRAMADOL HCL Inactive DICLOFENAC SODIUM 50 MG TBEC 1 tablet by mouth four times daily PRN Pain 2015 DICLOFENAC SODIUM 50 MG TBEC 906671 DICLOFENAC SODIUM Inactive BUSPIRONE HCL 15 MG TABS 1 tab po TID BUSPIRONE HCL 15 MG TABS 388515 BUSPIRONE HCL Inactive LEVAQUIN 500 MG TABS 1 daily for infection LEVAQUIN 500 MG TABS 120430 LEVOFLOXACIN Inactive LEVOFLOXACIN 500 MG TABS 1 tab po qd LEVOFLOXACIN 500 MG TABS 19971021 LEVOFLOXACIN Inactive LEVOFLOXACIN 500 MG ORAL TABS po daily LEVOFLOXACIN 500 MG ORAL TABS 19971021 LEVOFLOXACIN Inactive MELATONIN 3 MG CAPS 2 po q hs MELATONIN 3 MG CAPS 19950526 MELATONIN Inactive CEFDINIR 300 MG CAPS by mouth twice a day CEFDINIR 300 MG CAPS 836965 CEFDINIR Inactive MIRALAX POWD 1 capfull once daily MIRALAX POWD 585628 POLYETHYLENE GLYCOL 3350 Inactive ZALEPLON 10 MG CAPS 1 cap po every other night ZALEPLON 10 MG CAPS 596918 ZALEPLON Inactive ZITHROMAX Z-EARNEST 250 MG TABS 2 today and then 1 daily for 4 days ZITHROMAX Z-EARNEST 250 MG TABS 8824641 AZITHROMYCIN Inactive ZITHROMAX Z-EARNEST 250 MG TABS 2 today and then 1 daily for 4 days ZITHROMAX Z-EARNEST 250 MG TABS 9995121 AZITHROMYCIN Inactive METOPROLOL SUCCINATE 50 MG TB24 1 tablet by mouth daily METOPROLOL SUCCINATE 50 MG TB24 METOPROLOL SUCCINATE Inactive MIRALAX PACK 1 po qd PRN Constipation MIRALAX PACK 770705 POLYETHYLENE GLYCOL 3350 Inactive ESCITALOPRAM OXALATE 20 MG TABS 1 tab po qd ESCITALOPRAM OXALATE 20 MG TABS 421150 ESCITALOPRAM OXALATE Inactive METOPROLOL TARTRATE 25 MG ORAL TABS 1/2 tablet twice daily for heart rate and blood pressure METOPROLOL TARTRATE 25 MG ORAL TABS 757593 METOPROLOL TARTRATE Inactive ABILIFY 15 MG ORAL TABS 1 tab daily ABILIFY 15 MG ORAL TABS 542980 ARIPIPRAZOLE Inactive HYDROCODONE-ACETAMINOPHEN 5-325 MG TABS 1 to 2 four times a day as needed for pain use until can be seen by specialist HYDROCODONE- ACETAMINOPHEN 5-325 MG TABS 296820 HYDROCODONE-ACETAMINOPHEN Inactive HYDROCODONE-ACETAMINOPHEN 5-325 MG ORAL TABS 1 tab two times a day HYDROCODONE-ACETAMINOPHEN 5-325 MG ORAL TABS 836510 HYDROCODONE-ACETAMINOPHEN Inactive TOPAMAX 50 MG ORAL TABS 1 tab twice daily TOPAMAX 50 MG ORAL TABS 663449 TOPIRAMATE Inactive EQ NICOTINE 21 MG/24HR TRANS PT24 Apply daily to stop smoking EQ NICOTINE 21 MG/24HR TRANS PT24 358703 NICOTINE Inactive LYRICA 50 MG CAPS 1 tab po TID LYRICA 50 MG CAPS PREGABALIN Inactive FLUTICASONE PROPIONATE 50 MCG/ACT SUSP 2 sprays each nostril daily before bed. FLUTICASONE PROPIONATE 50 MCG/ACT SUSP 5778683 FLUTICASONE PROPIONATE Inactive CHANTIX 1 MG TABS 1 twice a day to help quit smoking CHANTIX 1 MG TABS VARENICLINE TARTRATE Inactive PROAIR HFA 108 (90 BASE) MCG/ACT AERS 2 puffs four times a day as needed 2015 PROAIR HFA 108 (90 BASE) MCG/ACT AERS ALBUTEROL SULFATE Inactive GUAIFENESIN-CODEINE 100-10 MG/5ML SYRP 5ml every 4 to 6 hours as needed for cough GUAIFENESIN-CODEINE 100-10 MG/5ML SYRP 345701 GUAIFENESIN-CODEINE Inactive VYVANSE 40 MG CAPS 1 daily, VYVANSE 40 MG CAPS LISDEXAMFETAMINE DIMESYLATE Inactive SAPHRIS 5 MG SUBL 1 tab po qd SAPHRIS 5 MG SUBL ASENAPINE MALEATE Inactive SAPHRIS 5 MG SUBL 1 po bid SAPHRIS 5 MG SUBL ASENAPINE MALEATE Inactive SAPHRIS 10 MG SUBL 1 tab po bid SAPHRIS 10 MG SUBL ASENAPINE MALEATE Inactive CHANTIX STARTING MONTH EARNEST 0.5 MG X 11 & 1 MG X 42 TABS 0.5mg daily for 3 days , then 0.5mg BID for 4 days, then 1mg BID CHANTIX STARTING MONTH EARNEST 0.5 MG X 11 & 1 MG X 42 TABS VARENICLINE TARTRATE Inactive CHANTIX STARTING MONTH EARNEST 0.5 MG X 11 & 1 MG X 42 TABS take as directed 2015 CHANTIX STARTING MONTH EARNEST 0.5 MG X 11 & 1 MG X 42 TABS VARENICLINE TARTRATE Inactive ADVAIR DISKUS 250-50 MCG/DOSE AEPB 1 puff BID ADVAIR DISKUS 250-50 MCG/DOSE AEPB FLUTICASONE-SALMETEROL Inactive ADVAIR DISKUS 250-50 MCG/DOSE INH AEPB 1 puff twice a day for asthma ADVAIR DISKUS 250-50 MCG/DOSE INH AEPB FLUTICASONE- SALMETEROL Inactive LATUDA 80 MG TABS Take one by mouth daily LATUDA 80 MG TABS LURASIDONE HCL Inactive VIIBRYD 10 MG ORAL TABS Take 1 tablet once a day VIIBRYD 10 MG ORAL TABS VILAZODONE HCL Inactive LATUDA 20 MG TABS Take one by mouth daily LATUDA 20 MG TABS LURASIDONE HCL Inactive ABILIFY MAINTENA 400 MG IM SUSR 400mg injection every 26 days ABILIFY MAINTENA 400 MG IM SUSR ARIPIPRAZOLE Inactive [facility]S PROBIOTIC ORAL CHEW 2 daily po [facility]S PROBIOTIC ORAL CHEW PROBIOTIC PRODUCT Inactive OXYCODONE HCL ER 10 MG ORAL T12A 1/2 tab by mouth every 4 hours prn OXYCODONE HCL ER 10 MG ORAL T12A OXYCODONE HCL Inactive MONISTAT 7 COMBO PACK WOODROW 100 & 2 MG-% (9GM) VAG KIT 1 applicatorful per vagina q pm x 7 MONISTAT 7 COMBO PACK WOODROW 100 & 2 MG-% (9GM) VAG KIT MICONAZOLE NITRATE Inactive ADZENYS XR-ODT 6.3 MG ORAL TBED 1 tab po daily for ADHD ADZENYS XR-ODT 6.3 MG ORAL TBED AMPHETAMINE Inactive Advance Directives Directive Description Start Date [...] % 11.0-15.0 platelet count 443 THOUSAND/UL 10*3/mm3 294-329 9605/03/01 mean platelet volume 8.2 fL 7.5-12.5 leukocyte [...] % 11.0-15.0 platelet count 349 THOUSAND/UL 10*3/mm3 524-935 5638/04/12 mean platelet volume 8.4 fL 7.5-12.5 Lab [...] 369 10^3/MM^3 10*3/mm3 142-424 Lab Report: Chlamydia/GC APTIMA/56857 - Lab chlamydia DNA probe NOT DETECTED NOT DETECTED Lab Report: Chlamydia/GC APTIMA/18223 - Microbiology Neisseria gonorrhoeae DNA probe NOT DETECTED NOT DETECTED Lab Report: Chlamydia/GC APTIMA/93656, Urinalysis, Complete, with Reflex ... - Lab chlamydia DNA probe NOT DETECTED NOT DETECTED Lab Report: Chlamydia/GC APTIMA/06357, Urinalysis, Complete, with Reflex ... - Microbiology Neisseria gonorrhoeae DNA probe NOT DETECTED NOT DETECTED Lab Report: Chlamydia/GC APTIMA/98011, Urinalysis, Complete, with Reflex ... - Urinalysis microalbumin/total urine volume 2 mg/L Units converted. See lab report for original value. microalbumin/creatinine ratio, urine 9 MCG/MG CREAT mg/L <30 Lab Report: Comp. Metabolic Panel - Chemistry blood glucose 80 mg/dL 65-110 chloride, serum 103 mmol/L 98-107 potassium, serum 5.0 mmol/L 3.5-5.2 carbon dioxide, venous blood 33.7 mmol/L 21.0-32.0 sodium, serum 140 mmol/L 052-797 9788/06/08 sodium, serum 142 mmol/L 656-046 8623/06/08 carbon dioxide, venous blood 27.6 mmol/L 21.0-32.0 [...] mg/dL Encounters Code Encounter Date Provider Facility CPT-45769 Level 4 Est. Patient 10:49:34 CDT Suzan Boo [facility] CPT-67825 Level 3 Est. Patient 10:00:25 CDT Suzan Boo [facility]-44248 Level 3 Est. Patient 10:29:30 CDT Suzan Boo [facility]-26234 Level 3 Est. Patient 11:04:38 CDT Renzo Thornton [facility]-42764 Level 3 Est. Patient 11:15:58 CLAM GROWER Renzo Thornton [facility]-10699 Level 3 Est. Patient 15:28:23 CLAM GROWER Suzan Boo [facility]-88999 Level 4 Est. Patient 10:20:54 CLAM GROWER Suzan Boo [facility]-35388 Level 3 Est. Patient 11:47:37 CLAM GROWER Ahmet Carbajal MD [facility]-69978 Level 3 Est. Patient 10:40:11 CLAM GROWER Ahmet Carbajal MD [facility]-00110 Level 3 Est. Patient 15:07:06 CLAM GROWER Neeraj Collins MD [facility]-72307 Level 4 Est. Patient 14:45:00 CLAM GROWER Ahmet Carbajal MD [facility]-51598 Level 3 Est. Patient 13:59:59 CDT 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 [facility]-41298 Level 3 Est. Patient 18:18:53 CDT Neeraj Collins MD [facility]-90839 Level 3 Est. Patient 15:50:44 CDT Vishal Hui MD [facility]-81464 Level 3 Est. Patient 11:36:17 CDT Ahmet Carbajal MD [facility]-96720 Level 3 Est. Patient 13:29:16 CDT Vishal Hui MD [facility] CPT-06445 Level 3 Est. Patient 14:27:52 CDT Neeraj Collins MD [facility] CPT-06911 Level 3 Est. Patient 08:56:03 CDT 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 [facility] CPT-72391 Level 4 Est. Patient 12:11:48 CDT Fabiola Johnson [facility] CPT-22895 Level 3 New Patient 16:53:37 CDT Albert Caldera MD [facility] CPT-11938 Level 3 Est. Patient 11:25:49 CDT Renzo Thornton DO [facility] CPT-70049 Level 3 Est. Patient 15:22:01 CDT Ahmet Carbajal MD [facility] CPT-60699 Level 4 Est. Patient 09:00:51 CLAM GROWER Vishal Hui MD [facility] CPT-77059 Level 3 Est. Patient 11:37:33 CLAM GROWER Vishal Hui MD [facility] CPT-70894 Level 3 Est. Patient 08:41:09 CLAM GROWER Vishal Hui MD [facility] CPT-52521 Level 4 Est. Patient 10:19:35 CLAM GROWER Vishal Hui MD [facility] CPT-63609 Level 3 Est. Patient 13:35:45 CDT Vishal Hui MD [facility] CPT-06851 Level 4 Est. Patient 10:08:37 CDT Vishal Hui MD [facility] CPT-67490 Level 3 Est. Patient 11:22:10 CDT Vishal Hui MD [facility] CPT-23636 Level 3 Est. Patient 11:03:32 CDT Sahara Rodriguez MD [facility] CPT-43590 Level 3 Est. Patient 09:41:35 CDT Vishal Hui MD [facility] CPT-91184 Level 3 Est. Patient 12:00:41 CDT Neeraj Collins MD [facility] CPT-48563 Level 3 Est. Patient 09:16:24 CDT Vishal Hui MD [facility] CPT-11622 Level 4 Est. Patient 13:59:09 CDT Neeraj Collins MD [facility] CPT-16485 Level 3 Est. Patient 15:19:43 CDT Renzo Thornton [facility] CPT-00818 Level 3 Est. Patient 18:10:26 CDT Sahara Rodriguez MD [facility]-56611 Level 3 Est. Patient 14:49:50 CDT Vishal Hui MD [facility] CPT-85185 Level 4 Est. Patient 18:41:46 CDT Neeraj Collins MD [facility] CPT-47791 Level 4 Est. Patient 09:18:38 CLAM GROWER Vishal Hui MD [facility] CPT-68599 Level 3 Est. Patient 14:43:55 CLAM GROWER Vishal Hui MD [facility] CPT-15672 Level 3 Est. Patient 15:26:33 CLAM GROWER Sahara Rodriguez MD [facility] CPT-04249 Level 3 Est. Patient 10:32:14 CLAM GROWER Vishal Hui MD [facility] CPT-09725 Level 3 Est. Patient 15:12:52 CLAM GROWER Vishal Hui MD [facility] CPT-00626 Level 4 Est. Patient 09:19:27 CDT Vishal Hui MD [facility] CPT-51548 Level 3 Est. Patient 15:53:00 CDT Renzo Thornton [facility] CPT-59528 Level 3 Est. Patient 15:50:30 CDT Renzo Thornton [facility] CPT-75256 Level 3 Est. Patient 16:55:24 CDT Vishal Hui MD [facility] Procedures Code Procedure Name Date Entry Date Standard Description CPT-44294 Venipuncture Draw Fee 08:41:12 CDT CPT-64499 Abd compl w upright - XRAY USE ONLY 10:27:59 CDT 06/28 CPT-63986 Smoking Cessation counseling 11:15:58 CLAM GROWER CPT-G0439 Subsequent Annual Wellness Exam 09:30:58 CLAM GROWER CPT-84338 TSH - LAB USE ONLY 08:50:26 CLAM GROWER CPT-09895 CBC - LAB USE ONLY 08:50:26 CLAM GROWER CPT-16435 Venipuncture Draw Fee 08:50:26 CLAM GROWER CPT-71649 Abx/Therapy Injection 17:34:30 CLAM GROWER CPT-54599 Nexplanon Removal with Reinsertion 14:09:32 CDT CPT-J7307 Nexplanon (Implant) 14:09:32 CDT CPT-OV Office Visit 14:09:32 CDT CPT-60432 UA w micro - LAB USE ONLY 16:21:13 CDT CPT-30902 [place] Mount - LAB USE ONLY 16:21:13 CDT CPT-86051 First Vx - Ix admin for Medicare patients 14:37:47 CDT CPT-89692 Fluzone Preservative Free Intramuscular Suspension 14:37 :47 CDT CPT-39504 Abx/Therapy Injection 13:54:22 CDT CPT-52208 Abx/Therapy Injection 08:47:09 CDT CPT-14095 Abx/Therapy Injection 13:29:56 CDT CPT-37123 Abx/Therapy Injection 08:36:16 CDT CPT-77794 [place] - LAB USE ONLY 17:44:58 CDT CPT-24138 UA w micro - LAB USE ONLY 17:44:58 CDT CPT-13920 CMP - LAB USE ONLY 17:44:58 CDT CPT-73835 Venipuncture Draw Fee 17:44:58 CDT CPT-91514 Cervical Min 4V - XRAY USE ONLY 09:01:40 CDT CPT-79614 Chest 2V Frontal and Lat - XRAY USE ONLY 11:06:31 CDT CPT-02717 EKG Trac and Interp - XRAY USE ONLY 11:31:43 CDT 08/26 CPT-J3420 Vitamin B12 1000mcg (Cyanocobalamin) 08:10:26 CLAM GROWER 04/12 CPT-61708 Abx/Therapy Injection 08:10:26 CLAM GROWER CPT-G0438 Initial Annual Wellness Exam 19:01:01 CLAM GROWER CPT-J3420 Vitamin B12 1000mcg (Cyanocobalamin) 16:57:46 CDT 08/14 CPT-51950 Recombivax HB Injection Suspension 5 MCG/0.5ML 08:37:50 CLAM GROWER CPT-66096 Immunization Single Admin 08:37:50 CLAM GROWER CPT-J3420 Vitamin B12 1000mcg (Cyanocobalamin) 08:32:16 CLAM GROWER 03/11 CPT-82044 Abx/Therapy Injection 08:32:16 CLAM GROWER CPT-08704 Chest 2V Frontal and Lat 11:46:38 CLAM GROWER CPT-57532 Venipuncture Draw Fee 09:12:45 CLAM GROWER CPT-J3420 Vitamin B12 1000mcg (Cyanocobalamin) 08:50:15 CLAM GROWER 02/08 CPT-74333 Abx/Therapy Injection 08:50:15 CLAM GROWER CPT-Cryo Cryotherapy 10:19:35 CLAM GROWER CPT-000 Give Appropriate Flu Vaccine 09:22:16 CDT CPT-J3420 Vitamin B12 1000mcg (Cyanocobalamin) 19:08:57 CDT 01/11 CPT-08955 Abx/Therapy Injection 19:08:57 CDT CPT-J3420 Vitamin B12 1000mcg (Cyanocobalamin) 08:19:08 CDT 12/11 CPT-27896 Abx/Therapy Injection 08:19:08 CDT CPT-J3420 Vitamin B12 1000mcg (Cyanocobalamin) 14:48:00 CDT 11/09 CPT-88490 Abx/Therapy Injection 14:47:59 CDT CPT-J3420 Vitamin B12 1000mcg (Cyanocobalamin) 08:34:04 CDT 10/09 CPT-57134 Abx/Therapy Injection 08:34:04 CDT CPT-J3420 Vitamin B12 1000mcg (Cyanocobalamin) 09:18:52 CDT 09/11 CPT-72697 Abx/Therapy Injection 09:18:52 CDT CPT-J3420 Vitamin B12 1000mcg (Cyanocobalamin) 08:35:44 CDT 09/04 CPT-12814 Abx/Therapy Injection 08:35:44 CDT CPT-09355 Immunization Single Admin 11:07:16 CDT CPT-95792 Hepatitis B adult IM 11:07:16 CDT CPT-J3420 Vitamin B12 1000mcg (Cyanocobalamin) 11:00:49 CDT 08/28 CPT-J1040 Depo Medrol 80 mg (Methyl Prednisolone Acetate) 11:00: 49 CDT CPT-77722 Abx/Therapy Injection 11:00:49 CDT CPT-J1040 Depo Medrol 80 mg (Methyl Prednisolone Acetate) 09:16: 23 CDT CPT-J3420 Vitamin B12 1000mcg (Cyanocobalamin) 08:27:05 CDT 08/20 CPT-99903 Abx/Therapy Injection 08:27:05 CDT CPT-93518 Recombivax HB Injection Suspension 5 MCG/0.5ML 10:00:41 CDT CPT-22901 Administration single or combination vaccine inc oral 10 :00:41 CDT CPT-49366 Sono transvag pelvis non OB uterus ovaries cervix 16:36: 57 CDT CPT-32922 LS spine comp w obliq 09:50:55 CLAM GROWER CPT-90720 Abd compl w upright 09:50:55 CLAM GROWER CPT-J1100 Decadron 4mg (Dexamethasone) 15:51:24 CLAM GROWER CPT-J1030 Depo Medrol 40 mg (Methyl Prednisolone Acetate) 15:51: 24 CLAM GROWER CPT-94117 Abx/Therapy Injection 15:51:24 CLAM GROWER CPT-J1100 Decadron 4mg (Dexamethasone) 15:26:33 CLAM GROWER CPT-J1030 Depo Medrol 40 mg (Methyl Prednisolone Acetate) 15:26: 33 CLAM GROWER CPT-76104 Sono retroperitoneal complete kidneys and bladder 17:15: 30 CDT CPT-93900 Abd compl w upright 16:09:25 CDT CPT-J1100 Decadron 8mg (Dexamethasone) 17:07:57 CDT CPT-25736 Abx/Therapy Injection 17:07:57 CDT CPT-J1100 Decadron 8mg (Dexamethasone) 16:55:24 CDT CPT-77424 Chest 2V Frontal and Lat 16:32:44 CDT
--- OUTSIDE RECORDS SUMMARY | 2016-11-04 11:34 | XMS REPORT | Clinical Summary ---
Author Author Admin, E Organization [facility] Address Unknown Phone Unavailable Allergies, Adverse Reactions, [...] bowel syndrome Low back pain, chronic 724.2 Active Vishal Hui MD Lumbago Obstructive sleep apnea 327.23 Active Vishal Hui [...] medical examination at a health care facility Pneumonia, organism unspecified ICD-486 Inactive Vishal Hui MD Flank pain, right ICD-789.09 Inactive Vishal Hui MD Abdominal pain ICD-789.00 Inactive Vishal Hui MD Cellulitis ICD-682.9 Inactive Vishal Hui MD Pelvic pain ICD-625.9 Inactive Vishal Hui MD Abscess, skin ICD-682.9 Inactive Vishal Hui MD Medication List Medication Instructions Start Date Stop Date Generic Name NDC Status Provider Patient Instruction [facility]S PROBIOTIC ORAL CHEW 2 daily po PROBIOTIC PRODUCT 06699276147 Active Jillina Frazell THERAPIST SPEECH Active IBUPROFEN 600 MG TAB 1 po TID PRN IBUPROFEN 52679121376 Active Jillina Frazell THERAPIST SPEECH Active BACTRIM DS 800-160 MG TAB 1 tab by mouth twice daily TRIMETHOPRIM-SULFAMETHOXAZOLE 37002595776 Active Neeraj Collins MD Active BACTRIM DS 800-160 MG TABS 1 po BID x 7 days SULFAMETHOXAZOLE-TRIMETHOPRIM 19114830027 No Longer Active Vishal Hui MD Active CHANTIX STARTING MONTH EARNEST 0.5 MG X 11 & 1 MG X 42 TABS 0.5mg daily for 3 days , then 0.5mg BID for 4 days, then 1mg BID VARENICLINE TARTRATE 56530178663 No Longer Active TAMARA Gray Active METOPROLOL TARTRATE 50 MG TAB 1 po bid METOPROLOL TARTRATE 85298215321 Active Vishal Hui MD Active TRAZODONE HCL 100 MG TAB take 1 at bedtime TRAZODONE HCL 66096695523 Active Vishal Hui MD Active AMLODIPINE BESYLATE 5 MG TABS 1 tablet by mouth daily AMLODIPINE BESYLATE 66790303730 Active Vishal Hui MD Active VERAPAMIL HCL CR 120 MG TAB CR 1 po bid VERAPAMIL HCL 97714018739 No Longer Active Vishal Hui MD Active METOPROLOL SUCCINATE 50 MG TB24 1 tablet by mouth daily METOPROLOL SUCCINATE 36332353301 No Longer Active Vishal Hui MD Active TRAMADOL HCL 50 MG TABS 1-2 po TID PRN Pain TRAMADOL HCL 50622737494 Active Vishal Hui MD Active SAPHRIS 5 MG SUBL 1 po bid ASENAPINE MALEATE 47312058139 Active Vishal Hui MD Active SAPHRIS 10 MG SUBL 1 tab po bid ASENAPINE MALEATE 30543758047 No Longer Active Vishal Hui MD Active LISINOPRIL 20 MG TABS 1 tab po qd LISINOPRIL 18422053199 No Longer Active Vishal Hui MD Active BENADRYL 25 MG CAP 2 po tid prn anxiety DIPHENHYDRAMINE HCL 42539586488 Active Vishal Hui MD Active LATUDA 80 MG TABS Take one by mouth daily LURASIDONE HCL 41343737322 Active Vishal Hui MD Active LATUDA 20 MG TABS Take one by mouth daily LURASIDONE HCL 66207191781 No Longer Active Vishal Hui MD Active TRAZODONE HCL 50 MG TABS 1/2 tab po qd prn for anxiety TRAZODONE HCL 11356653210 No Longer Active Vishal Hui MD Active PIROXICAM 20 MG CAPS 1 cap po qd PRN Pain PIROXICAM 52809083806 Active Vishal Hui MD Active OMEPRAZOLE 20 MG TBEC 1 po q a.m. 30min prior to first food intake OMEPRAZOLE 65365141500 Active Vishal Hui MD Active RANITIDINE HCL 150 MG CAPS 1 twice a day RANITIDINE HCL 89233596298 Active Vishal Hui MD Active MULTIVITAMINS CAPS Take one by mouth daily MULTIPLE VITAMIN 49388355441 Active Vishal Hui MD Active MELATONIN 3 MG CAPS 2 po q hs MELATONIN 20642380655 Active Vishal Hui MD Active PROZAC 20 MG CAP Take one by mouth daily FLUOXETINE HCL 74949669132 Active Vishal Hui MD Active LINZESS 290 MCG CAPS Take one by mouth daily LINACLOTIDE 77994708427 Active Vishal Hui MD Active SAPHRIS 5 MG SUBL 1 tab po qd ASENAPINE MALEATE 85649985624 No Longer Active Vishal Hui MD Active ZALEPLON 10 MG CAPS 1 cap po every other night ZALEPLON 67705035804 No Longer Active Vishal Hui MD Active LYRICA 50 MG CAPS 1 tab po TID PREGABALIN 53330773364 No Longer Active Vishal Hui MD Active LORATADINE 10 MG TABS 1 tab po qd LORATADINE 62852715224 No Longer Active Vishal Hui MD Active VERAPAMIL HCL ER 180 MG CR-TABS 1 tab po bid VERAPAMIL HCL 28360601049 No Longer Active Vishal Hui MD Active MIRALAX POWD 1 capfull once daily POLYETHYLENE GLYCOL 3350 33853421365 No Longer Active Vishal Hui MD Active PREDNISONE 20 MG TABS 1 tab po qd PREDNISONE 60644661145 No Longer Active Renzo Thornton DO Active LEVOFLOXACIN 500 MG TABS 1 tab po qd LEVOFLOXACIN 57408490397 No Longer Active Renzo Thornton DO Active BUSPIRONE HCL 15 MG TABS 1 tab po TID BUSPIRONE HCL 27647221368 No Longer Active Renzo Thornton DO Active BENZTROPINE MESYLATE 1 MG TABS 1 tab po qd BENZTROPINE MESYLATE 28946450855 No Longer Active Renzo Thornton DO Active ATENOLOL 25 MG TABS 1 tab po qd ATENOLOL 56914720260 No Longer Active Renzo Thornton DO Active ESCITALOPRAM OXALATE 20 MG TABS 1 tab po qd ESCITALOPRAM OXALATE 52716853190 No Longer Active Renzo Thornton DO Active ADVAIR DISKUS 250-50 MCG/DOSE AEPB 1 puff BID FLUTICASONE-SALMETEROL 80203119850 No Longer Active Renzo Thornton DO Active PREDNISONE 20 MG TAB 2 tabs daily for 3 days, 1 tab daily for 3 days, 1/2 tab daily for 2 days PREDNISONE 03462251026 No Longer Active Vishal Hui MD Active CEFDINIR 300 MG CAPS by mouth twice a day CEFDINIR 98896901679 No Longer Active Vishal Hui MD Active LANSOPRAZOLE 30 MG CPDR 1 cap po qd LANSOPRAZOLE 51687409640 No Longer Active Vishal Hui MD Active TOPAMAX 25 MG TABS 1 tab po bid TOPIRAMATE 15368674275 Active Vishal Hui MD Active MINIPRESS 2 MG CAPS 1 cap po at night PRAZOSIN HCL 02434957001 Active Vishal Hui MD Active BACLOFEN 20 MG TABS 1 tab po tid BACLOFEN 14039809832 Active Vishal Hui MD Active ADVAIR DISKUS 250-50 MCG/DOSE AEPB 1 puff BID ADVAIR DISKUS 250-50 MCG/DOSE AEPB FLUTICASONE-SALMETEROL Inactive ESCITALOPRAM OXALATE 20 MG TABS 1 tab po qd ESCITALOPRAM OXALATE 20 MG TABS 395105 ESCITALOPRAM OXALATE Inactive ATENOLOL 25 MG TABS 1 tab po qd ATENOLOL 25 MG TABS 886037 ATENOLOL Inactive BENZTROPINE MESYLATE 1 MG TABS 1 tab po qd BENZTROPINE MESYLATE 1 MG TABS 826095 BENZTROPINE MESYLATE Inactive BUSPIRONE HCL 15 MG TABS 1 tab po TID BUSPIRONE HCL 15 MG TABS 850127 BUSPIRONE HCL Inactive LEVOFLOXACIN 500 MG TABS 1 tab po qd LEVOFLOXACIN 500 MG TABS 475644 LEVOFLOXACIN Inactive PREDNISONE 20 MG TABS 1 tab po qd PREDNISONE 20 MG TABS 351382 PREDNISONE Inactive MIRALAX POWD 1 capfull once daily MIRALAX POWD 404652 POLYETHYLENE GLYCOL 3350 Inactive VERAPAMIL HCL ER 180 MG CR-TABS 1 tab po bid VERAPAMIL HCL ER 180 MG CR-TABS VERAPAMIL HCL Inactive LORATADINE 10 MG TABS 1 tab po qd LORATADINE 10 MG TABS 075527 LORATADINE Inactive LYRICA 50 MG CAPS 1 tab po TID LYRICA 50 MG CAPS PREGABALIN Inactive ZALEPLON 10 MG CAPS 1 cap po every other night ZALEPLON 10 MG CAPS 228349 ZALEPLON Inactive SAPHRIS 5 MG SUBL 1 tab po qd SAPHRIS 5 MG SUBL ASENAPINE MALEATE Inactive TRAZODONE HCL 50 MG TABS 1/2 tab po qd prn for anxiety TRAZODONE HCL 50 MG TABS 127321 TRAZODONE HCL Inactive LATUDA 20 MG TABS Take one by mouth daily LATUDA 20 MG TABS LURASIDONE HCL Inactive LISINOPRIL 20 MG TABS 1 tab po qd LISINOPRIL 20 MG TABS 092609 LISINOPRIL Inactive SAPHRIS 10 MG SUBL 1 [...] MG X 42 TABS VARENICLINE TARTRATE Inactive CEFDINIR 300 MG CAPS by mouth twice a day CEFDINIR 300 MG CAPS 309390 CEFDINIR Inactive PREDNISONE 20 MG TAB 2 tabs daily for 3 days, 1 tab daily for 3 days, 1/2 tab daily for 2 days PREDNISONE 20 MG TAB 047499 PREDNISONE Inactive BACTRIM DS 800-160 MG TABS 1 po BID x 7 days BACTRIM DS 800-160 MG TABS SULFAMETHOXAZOLE-TRIMETHOPRIM Inactive Vital Signs Date Name Value [...] Weight Measured blood pressure, diastolic - 8462-4 58 mm[Hg] BP mcnally blood pressure, systolic - 8480-6 90 mm[Hg] BP sys height E&M - 8302-2 66.5 [in_us] Bdy height pulse rate E&M - 8867-4 111 /min Heart rate temperature E&M 98.6 [degF] Body temperature weight E&M - 3141-9 300.50 [lb_av] Weight Measured Diagnostic Results Date Name [...] g/dL platelet count 364 10*3/mm3 Lab Report: Comp. Metabolic Panel - Chemistry sodium, serum 141 mmol/L 243-955 7685 potassium, serum 4.3 mmol/L 3.5-5.2 chloride, serum [...] Panel - Chemistry sodium, serum 139 mmol/L 341-067 2840/12/31 potassium, serum 4.8 mmol/L 3.5-5.2 chloride, serum 106 mmol/L 98-107 carbon dioxide, venous blood 24.3 mmol/L 21.0-32.0 blood glucose 90 mg/dL 65-110 urea nitrogen, blood 16 mg/dL 7-18 creatinine, serum 1.00 mg/dL 0.60-1.30 alanine aminotransferase (SGPT), serum 41 U/L 12-78 aspartate aminotransferase (SGOT), serum 17 U/L 15-37 calcium, serum 8.6 mg/dL 8.5-10.1 bilirubin, serum, total 0.30 mg/dL 0.00-1.00 cholesterol, serum 108 mg/dL 674-784 1716/12/31 triglyceride, serum, fasting 120 mg/dL 30-200 HDL cholesterol, serum 28 mg/dL 32-96 LDL cholesterol, serum 56 mg/dL 0-130 Lab Report: MICROALBUMIN - Chemistry albumin/creatinine ratio, urine < 30 mg/g mg/g{creat} 0-29 Lab Report: MICROALBUMIN - Lab microalbumin, urine 10 0-19 Lab Report: UADIP W/MICRO, AUTO - Chemistry [...] nitrite, urine, semiquantitative Negative Negative Lab Report: UADIP W/MICRO, [place] [facility] Chemistry protein, total urine random Negative mg/dL Negative RBC, urine, dipstick Negative Negative human chorionic gonadotropin, urine, qualitative (urine test) Negative Negative Lab Report: UADIP W/MICRO, AUTO, [facility] Urinalysis urobilinogen, urine, semiquantitative (dipstick) 0.2 Normal leukocyte esterase, urine, by dipstick Negative Negative nitrite, urine, semiquantitative Negative Negative glucose, urine, semiquantitative Negative Negative ketones, urine, by test strip Negative Negative bilirubin, urine Negative Negative urine color Yellow Colorless;Lightyellow;Straw;Yellow appearance, urine Clear Clear specific gravity, urine 1.025 1.000-1.030 pH, urine, semiquantitative 7.0 5.0-8.5 Lab Report: Varicella-Zoater Inga IgG,IgM/78889, HEP Be Antibody/556, RUB ... - Serology rubella antibody, serum, IgG 2.88 Encounters Code Encounter Date Provider Facility CPT-35174 Level 3 Est. Patient 14:49:50 CDT Vishal Hui MD [facility] CPT-64747 Level 4 Est. Patient 18:41:46 CDT Neeraj Collins MD [facility] CPT-66842 Level 4 Est. Patient 09:18:38 PROCESSOR GRAIN Vishal Hui MD [facility] CPT-47843 Level 3 Est. Patient 14:43:55 PROCESSOR GRAIN Vishal Hui MD [facility] CPT-70825 Level 3 Est. Patient 15:26:33 PROCESSOR GRAIN Sahara Rodriguez MD PhD [facility] CPT-92525 Level 3 Est. Patient 10:32:14 PROCESSOR GRAIN Vishal Hui MD [facility] CPT-64153 Level 3 Est. Patient 15:12:52 PROCESSOR GRAIN Vishal Hui MD [facility] CPT-32820 Level 4 Est. Patient 09:19:27 CDT Vishal Hui MD [facility] CPT-02053 Level 3 Est. Patient 15:53:00 CDT Renzo Thornton [facility] CPT-55691 Level 3 Est. Patient 15:50:30 CDT Renzo Thornton [facility] CPT-39392 Level 3 Est. Patient 16:55:24 CDT Vishal Hui MD [facility] Procedures Code Procedure Name Date Entry Date Standard Description CPT-98979 Recombivax HB Injection Suspension 5 MCG/0.5ML 10:00:41 CDT CPT-28107 Administration single or combination vaccine inc oral 10 :00:41 CDT CPT-28264 Sono transvag pelvis non OB uterus ovaries cervix 16:36: 57 CDT CPT-84555 LS spine comp w obliq 09:50:55 PROCESSOR GRAIN CPT-92335 Abd compl w upright 09:50:55 PROCESSOR GRAIN CPT-J1100 Decadron 4mg (Dexamethasone) 15:51:24 PROCESSOR GRAIN CPT-J1030 Depo Medrol 40 mg (Methyl Prednisolone Acetate) 15:51: 24 PROCESSOR GRAIN CPT-59855 Abx/Therapy Injection 15:51:24 PROCESSOR GRAIN CPT-J1100 Decadron 4mg (Dexamethasone) 15:26:33 PROCESSOR GRAIN CPT-J1030 Depo Medrol 40 mg (Methyl Prednisolone Acetate) 15:26: 33 PROCESSOR GRAIN CPT-24691 Sono retroperitoneal complete kidneys and bladder 17:15: 30 CDT CPT-35962 Abd compl w upright 16:09:25 CDT CPT-J1100 Decadron 8mg (Dexamethasone) 17:07:57 CDT CPT-96236 Abx/Therapy Injection 17:07:57 CDT CPT-J1100 Decadron 8mg (Dexamethasone) 16:55:24 CDT CPT-54401 Chest 2V Frontal and Lat 16:32:44 CDT
--- OUTSIDE RECORDS SUMMARY | 2016-11-04 11:38 | XMS REPORT | Clinical Summary ---
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 Juliet Kimbrough ANIMAL ANATOMIST Dependence on other enabling machines and devices [...] Suzan Boo APRN Bronchitis, acute 466.0 Resolved hAmet Carbajal MD Acute bronchitis Generalized anxiety disorder 300.02 Active Ahmet Carbajal MD Generalized anxiety disorder Business Objects Analyst well woman exam V72.31 Resolved Suzan Boo [...] intractable migraine, without mention of status migrainosus Anxiety Disorder ICD-300.00 Inactive Vishal Hui MD Pneumonia, organism unspecified ICD-486 Inactive Vishal Hui MD Flank pain, right ICD-789.09 Inactive Vishal Hui MD G E R D ICD-530.81 Inactive Vishal Hui MD Health screening ICD-V70.0 Inactive Suzan Boo APRN Sinus tachycardia ICD-427.89 Inactive Suzan Boo APRN Smoker/tobacco use disorder-smoking cessation discussed ICD-305.1 Jim [...] fracture with routine healing Inactive Suzan Boo ANIMAL ANATOMIST Bronchitis, acute ICD-466.0 Inactive Ahmet Carbajal MD Business Objects Analyst well woman exam ICD-V72.31 Inactive Suzan Boo ANIMAL ANATOMIST Bronchitis, acute with mild bronchospasm ICD-466.0 Inactive Suzanthuy Boo ANIMAL ANATOMIST Tracheitis ICD-464.10 Inactive Suzan Boo ANIMAL ANATOMIST Impetigo ICD-684 Inactive Suzan Boo ANIMAL ANATOMIST Furuncle of buttock ICD-680.5 Inactive Suzan Boo ANIMAL ANATOMIST Vaginal irritation ICD-623.9 Inactive Suzan Boo ANIMAL ANATOMIST Scalding pain on urination ICD-788.1 Inactive Suzan Boo ANIMAL ANATOMIST Abdominal pain, right upper quadrant ICD-789.01 Inactive Suzan Boo ANIMAL ANATOMIST Dark urine ICD-791.9 Inactive Suzan Boo APRN Preop exam ICD-V72.84 Inactive Suzan Boo ANIMAL ANATOMIST Medication List Medication Instructions Start Date Stop Date Generic Name NDC Status Provider Patient Instruction ENAILAJLLA-HONM-[id number] 50-325-40 MG TABS 1 to 2 four times a day as needed for headache [id number] Active Suzan Boo ANIMAL ANATOMIST Active METOCLOPRAMIDE HCL 10 MG TABS 1 two times as needed for nausea and headaches METOCLOPRAMIDE HCL 92426720980 Active Suzan Boo APRN Active NYSTATIN 957016 UNIT/GM CREA apply three times a day to yeast rash NYSTATIN 55592175526 Active Suzan Boo APRN Active AMITIZA 24 MCG ORAL CAPS one capsule twice daily LUBIPROSTONE 83201792371 Active Suzan Boo APRN Active MIRALAX ORAL POWD 17GMS DAILY IN WATER POLYETHYLENE GLYCOL 3350 35945136133 No Longer Active Suzan Boo APRN Active LACTULOSE 10 GM/15ML ORAL SOLN 30mL oral BID for IBS-C LACTULOSE 53799202257 No Longer Active Suzan Boo APRN Active BACTRIM DS 800-160 MG TAB Take one (1) tablet by mouth twice a day for 5 days TRIMETHOPRIM-SULFAMETHOXAZOLE 85476019782 No Longer Active Suzan Boo APRN Active MUPIROCIN 2 % OINT apply twice a day MUPIROCIN 36543441496 No Longer Active Suzan Boo APRN Active BACTRIM DS 800-160 MG TABS 1 twice a day SULFAMETHOXAZOLE-TRIMETHOPRIM 83085224642 No Longer Active Suzan Boo APRN Active DIFLUCAN 150 MG TABS 1 by mouth for yeast FLUCONAZOLE 64834466289 No Longer Active Suzan Boo APRN Active LINZESS 290 MCG ORAL CAPS 1 tab 30 min prior to first meal each day. LINACLOTIDE 92030782926 No Longer Active Sheila Calderon GENERAL OFFICE ASSISTANT Active AMITIZA 8 MCG ORAL CAPS 1 tab BID LUBIPROSTONE 75845268299 No Longer Active Lynda Madl GENERAL OFFICE ASSISTANT Active TESSALON PERLES 100 MG CAPS 1 three times a day as needed for cough BENZONATATE 10371900832 No Longer Active Suzan Boo APRN Active BACTRIM DS 800-160 MG TABS 1 twice a day SULFAMETHOXAZOLE-TRIMETHOPRIM 66111405965 No Longer Active Suzan Boo APRN Active DIFLUCAN 150 MG TABS 1 by mouth for yeast FLUCONAZOLE 37364534925 No Longer Active Suzan Boo APRN Active EQ NICOTINE 21 MG/24HR TRANS PT24 Apply daily to stop smoking NICOTINE 26796334211 No Longer Active Suzan Boo APRN Active PREDNISONE 10 MG TABS 2 daily for 5 days then 1 daily for 5 days PREDNISONE 88489974486 No Longer Active Suzan Boo APRN Active LEVAQUIN 500 MG TABS 1 daily for infection LEVOFLOXACIN 72163723613 No Longer Active Suzan Boo APRN Active TROPICAMIDE 0.5 % OPHTH SOLN 1 drop PRN eye spasms TROPICAMIDE 25350523458 No Longer Active Suzan Boo APRN Active PREDNISONE 20 MG TAB 1 tablet daily x 4 days PREDNISONE 56320871824 No Longer Active Suzan Boo APRN Active ACETAMINOPHEN-CODEINE 120-12 MG/5ML SOLN 5 ml by mouth every 4-6 hours if needed for cough ACETAMINOPHEN-CODEINE 97368867671 No Longer Active Suzan Boo APRN Active KEFLEX 500 MG CAP 1 po qid CEPHALEXIN 28999601115 No Longer Active Suzan Boo APRN Active FLOVENT HFA 110 MCG/ACT AERO 2 puffs inhaled b.i.d. FLUTICASONE PROPIONATE HFA 75967278605 Active Renzo Thornton DO Active RISPERDAL 4 MG ORAL TABS 1 tab at bedtime RISPERIDONE 90056996272 Active Samantha Rothman RMA Active ZOFRAN 4 MG TABS 1 po q6hr PRN Nausea ONDANSETRON HCL No Longer Active Suzan Boo APRN Active FLUTICASONE PROPIONATE 50 MCG/ACT SUSP 2 sprays each nostril daily before bed. FLUTICASONE PROPIONATE 42728582299 No Longer Active Suzan Boo APRN Active ASPIRIN 325 MG ORAL TABS 1 tab q.d ASPIRIN 69805479014 No Longer Active Suzan Boo APRN Active HALOPERIDOL 10 MG ORAL TABS 1 tab q.d HALOPERIDOL 74536479888 No Longer Active Suzan Boo APRN Active GUAIFENESIN-CODEINE 100-10 MG/5ML SYRP 5ml every 4 to 6 hours as needed for cough GUAIFENESIN-CODEINE 35977616606 No Longer Active Suzan Boo APRN Active ZITHROMAX Z-EARNEST 250 MG TABS 2 today and then 1 daily for 4 days AZITHROMYCIN 16851438160 No Longer Active Suzan Boo APRN Active CLONAZEPAM 1 MG ORAL TABS 1 twice a day and an additional 1 tablet every other day as needed for pseudoseizures or anxiety CLONAZEPAM 67599299088 Active Suzan Boo APRN Active HYDROCODONE-ACETAMINOPHEN 5-325 MG ORAL TABS 1 tab two times a day HYDROCODONE-ACETAMINOPHEN 20918638159 No Longer Active Ahmet Carbajal MD Active LAMICTAL 100 MG ORAL TABS 1 tab 2 times qd. LAMOTRIGINE 57304156688 Active Ahmet Carbajal MD Active PREDNISONE 20 MG TABS 2 daily for 5 days then 1 daily for 5 days PREDNISONE 74628288612 No Longer Active Ahmet Carbajal MD Active FLUTICASONE PROPIONATE 50 MCG/ACT SUSP 1 to 2 sprays each nostril daily for allergies FLUTICASONE PROPIONATE 45034076481 Active Tila Valenzuela Active BENADRYL 25 MG CAP 4 po at bedtime for insomnia DIPHENHYDRAMINE HCL 58696106452 No Longer Active Ahmet Carbajal MD Active ADVAIR DISKUS 250-50 MCG/DOSE INH AEPB 1 puff twice a day for asthma FLUTICASONE-SALMETEROL 08051844813 No Longer Active Ahmet Carbajal MD Active KLONOPIN 1 MG ORAL TABS 1 tab po TID CLONAZEPAM 60735291886 No Longer Active Ahmet Carbajal MD Active ABILIFY MAINTENA 400 MG IM SUSR 400mg injection every 26 days ARIPIPRAZOLE 44525144825 No Longer Active Ahmet Carbajal MD Active TRAMADOL HCL 50 MG TABS 1/2-1 tab TID PRN TRAMADOL HCL 21689540573 No Longer Active Ahmet Carbajal MD Active BACTRIM DS 800-160 MG TABS 1 twice a day SULFAMETHOXAZOLE- TRIMETHOPRIM 77468246924 No Longer Active Ahmet Carbajal MD Active PROAIR HFA 108 (90 BASE) MCG/ACT AERS 2 puffs four times a day as needed 2015 ALBUTEROL SULFATE 95445048608 Active Honey Hinton ANIMAL ANATOMIST Active MONISTAT 7 COMBO PACK WOODROW 100 & 2 MG-% (9GM) VAG KIT 1 applicatorful per vagina q pm x 7 MICONAZOLE NITRATE 60366943549 No Longer Active Ahmet Carbajal MD Active FLAGYL 500 MG TAB 1 tablet by mouth bid METRONIDAZOLE 52335746273 No Longer Active Ahmet Carbajal MD Active OXYCODONE HCL ER 10 MG ORAL T12A 1/2 tab by mouth every 4 hours prn OXYCODONE HCL 14318426935 No Longer Active Ahmet Carbajal MD Active METHYLPREDNISOLONE 4 MG ORAL TABS po daily METHYLPREDNISOLONE 12122289608 No Longer Active Ahmet Carbajal MD Active LEVOFLOXACIN 500 MG ORAL TABS po daily LEVOFLOXACIN 01515674117 No Longer Active Ahmet Carbajal MD Active VIIBRYD 10 MG ORAL TABS Take 1 tablet once a day VILAZODONE HCL 10997209745 No Longer Active Ahmet Carbajal MD Active TOPAMAX 50 MG ORAL TABS 1 tab twice daily TOPIRAMATE 39383501808 No Longer Active Ahmet Carbajal MD Active DICLOFENAC SODIUM 50 MG TBEC 1 tablet by mouth four times daily PRN Pain 2015 DICLOFENAC SODIUM 31871451013 No Longer Active Ahmet Carbajal MD Active ADZENYS XR-ODT 6.3 MG ORAL TBED 1 tab po daily for ADHD AMPHETAMINE 69975014913 No Longer Active Ahmet Carbajal MD Active CHANTIX 1 MG TABS 1 twice a day to help quit smoking VARENICLINE TARTRATE 95174593340 No Longer Active Dipika Burgos MD Active CHANTIX STARTING MONTH EARNEST 0.5 MG X 11 & 1 MG X 42 TABS take as directed 2015 VARENICLINE TARTRATE 55821417370 No Longer Active Dipika Burgos MD Active TESSALON PERLES 100 MG CAP 1 to 2 tablets by mouth 3 times daily as needed for cough BENZONATATE 53220390858 No Longer Active 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 ANIMAL ANATOMIST Active IMITREX 50 MG ORAL TABS 0.5 po x 1 PRN Headache. May repeat dose x 1 in 2 hours if needed SUMATRIPTAN SUCCINATE 64692752834 Active TAMARA Casey Active HYDROCODONE-ACETAMINOPHEN 5-325 MG TABS 1 to 2 four times a day as needed for pain use until can be seen by specialist HYDROCODONE- ACETAMINOPHEN 81970722315 No Longer Active Vishal Hui MD Active PROAIR HFA 108 (90 BASE) MCG/ACT AERS 2 puffs four times a day as needed 2015 ALBUTEROL SULFATE 75701260596 No Longer Active Vishal Hui MD Active PREDNISONE 20 MG TABS 2 daily for 5 days then 1 daily for 5 days PREDNISONE 65288475823 No Longer Active Vishal Hui MD Active ZITHROMAX Z-ERANEST 250 MG TABS 2 today and then 1 daily for 4 days AZITHROMYCIN 03175893192 No Longer Active Vishal Hui MD Active DICLOFENAC POTASSIUM TABS Take 1 tablet twice a day (pt. is not sure of the dose.) DICLOFENAC POTASSIUM TABS 00220936202 No Longer Active Vishal Hui MD Active VERAPAMIL HCL ER 120 MG ORAL CR-TABS Take 1 tablet by mouth twice a day. VERAPAMIL HCL 91917515965 Active Vishal Hui MD Active FLAGYL 500 MG TAB 1 tablet by mouth bid METRONIDAZOLE 19421991507 No Longer Active Vishal Hui MD Active VALIUM 5 MG TAB Take 1-2 tablets daily DIAZEPAM 70448683259 No Longer Active Fabiola Johnson APRN Active METOPROLOL TARTRATE 25 MG ORAL TABS 1/2 tablet twice daily for heart rate and blood pressure METOPROLOL TARTRATE 52410544067 No Longer Active Fabiola Johnson APRN Active MIRALAX PACK 1 po qd PRN Constipation POLYETHYLENE GLYCOL 3350 24032881603 No Longer Active Ahmet Carbajal MD Active MINIPRESS 2 MG CAPS 4 cap po at night PRAZOSIN HCL 72122729762 No Longer Active Ahmet Carbajal MD Active PIROXICAM 20 MG CAPS 1 cap po qd PRN Pain PIROXICAM 93164567982 No Longer Active Ahmet Carbajal MD Active TRAMADOL HCL 50 MG TABS 1-2 po TID PRN Pain TRAMADOL HCL 41648695371 No Longer Active Ahmet Carbajal MD Active METOPROLOL TARTRATE 50 MG TAB 1 po bid METOPROLOL TARTRATE 73008247748 No Longer Active Ahmet Carbajal MD Active ABILIFY 15 MG ORAL TABS 1 tab daily ARIPIPRAZOLE 45836765219 No Longer Active Ahmet Carbajal MD Active PROZAC 20 MG ORAL CAPS 1 tab daily FLUOXETINE HCL 25715753584 No Longer Active Ahmet Carbajal MD Active AMBIEN 5 MG ORAL TABS 1 tab at bedtime ZOLPIDEM TARTRATE 75103537539 No Longer Active Ahmet Carbajal MD Active PREDNISONE 20 MG TAB 2 tabs daily for 4 days, 1 tab daily for 4 days, 1/2 tab daily for 4 days PREDNISONE 37858751237 No Longer Active Ahmet Carbajal MD Active KEFLEX 500 MG CAP 1 po TID x 10 days CEPHALEXIN 95077770945 No Longer Active Vishal Hui MD Active SAPHRIS 5 MG SUBL 1 po bid ASENAPINE MALEATE 91013623406 No Longer Active Jillina Mauricio ANIMAL ANATOMIST Active LATUDA 80 MG TABS Take one by mouth daily LURASIDONE HCL 23339467234 No Longer Active Jillina Fralebron ANIMAL ANATOMIST Active AMLODIPINE BESYLATE 5 MG TABS 1 tablet by mouth daily AMLODIPINE BESYLATE 94137189471 No Longer Active Jillina Fralebron WALTERSN Active AMITRIPTYLINE HCL 100 MG TAB one at hs AMITRIPTYLINE HCL 77570706914 No Longer Active Vishal Hui MD Active TRAZODONE HCL 100 MG TAB take 1 at bedtime TRAZODONE HCL 87551567423 No Longer Active Vishal Hui MD Active VYVANSE 40 MG CAPS 1 daily, LISDEXAMFETAMINE DIMESYLATE 61161648848 No Longer Active Vishal Hui MD Active IBUPROFEN 600 MG TAB 1 po TID PRN IBUPROFEN 04445001562 No Longer Active Vishal Hui MD Active PROZAC 20 MG CAP Take one by mouth daily FLUOXETINE HCL 13181030443 No Longer Active Vishal Hui MD Active BACTRIM DS 800-160 MG TABS 1 pill by mouth twice daily SULFAMETHOXAZOLE-TRIMETHOPRIM 17492186061 No Longer Active Sahara Rodriguez MD PhD Active DIFLUCAN 150 MG TAB 1 tablet by mouth daily FLUCONAZOLE 49077696064 No Longer Active Vishal Hui MD Active TIZANIDINE HCL 4 MG TABS 1 po q6hr PRN Muscle Spasm/Back Pain TIZANIDINE HCL 32530794551 Active TAMARA Casey Active CLINDAMYCIN HCL 150 MG CAPS 1 four times a day CLINDAMYCIN HCL 94494075895 No Longer Active Neeraj Collins MD Active KEFLEX 500 MG ORAL CAPS 1 cap QID by mouth CEPHALEXIN 94889832266 No Longer Active Neeraj Collins MD Active DIFLUCAN 150 MG TABS 1 pill every other day x 2 doses FLUCONAZOLE 42687772629 No Longer Active Sahara Rodriguez MD PhD Active MELATONIN 3 MG CAPS 2 po q hs MELATONIN 26383876901 No Longer Active Sahara Rodriguez MD PhD Active MULTIVITAMINS CAPS Take one by mouth daily MULTIPLE VITAMIN 74477320106 No Longer Active Sahara Rodriguez MD PhD Active BACTRIM DS 800-160 MG TAB 1 tab by mouth twice daily TRIMETHOPRIM-SULFAMETHOXAZOLE 37474831534 No Longer Active Sahara Rodriguez MD PhD Active [facility] PROBIOTIC ORAL CHEW 2 daily po PROBIOTIC PRODUCT 39751714671 No Longer Active Sahara Rodriguez MD PhD Active BACTRIM DS 800-160 MG TABS 1 po BID x 7 days SULFAMETHOXAZOLE-TRIMETHOPRIM 84437942585 No Longer Active Vishal Hui MD Active CHANTIX STARTING MONTH EARNEST 0.5 MG X 11 & 1 MG X 42 TABS 0.5mg daily for 3 days , then 0.5mg BID for 4 days, then 1mg BID VARENICLINE TARTRATE 65836822825 No Longer Active TAMARA Gray Active VERAPAMIL HCL CR 120 MG TAB CR 1 po bid VERAPAMIL HCL 78519695426 No Longer Active Vishal Hui MD Active METOPROLOL SUCCINATE 50 MG TB24 1 tablet by mouth daily METOPROLOL SUCCINATE 60705122214 No Longer Active Vishal Hui MD Active SAPHRIS 10 MG SUBL 1 tab po bid ASENAPINE MALEATE 53471333099 No Longer Active Vishal Hui MD Active LISINOPRIL 20 MG TABS 1 tab po qd LISINOPRIL 26059886716 No Longer Active Vishal Hui MD Active LATUDA 20 MG TABS Take one by mouth daily LURASIDONE HCL 36137945749 No Longer Active Vishal Hui MD Active TRAZODONE HCL 50 MG TABS 1/2 tab po qd prn for anxiety TRAZODONE HCL 15409190485 No Longer Active Vishal Hui MD Active OMEPRAZOLE 20 MG TBEC 1 po q a.m. 30min prior to first food intake OMEPRAZOLE 39100951178 Active TAMARA Casey Active RANITIDINE HCL 150 MG CAPS 1 twice a day RANITIDINE HCL 10293926529 Active Lynda Xiao LPN Active LINZESS 290 MCG CAPS Take one by mouth daily LINACLOTIDE 27127560187 No Longer Active Vishal Hui MD Active SAPHRIS 5 MG SUBL 1 tab po qd ASENAPINE MALEATE 81151805219 No Longer Active Vishal Hui MD Active ZALEPLON 10 MG CAPS 1 cap po every other night ZALEPLON 95980691148 No Longer Active Vishal Hui MD Active LYRICA 50 MG CAPS 1 tab po TID PREGABALIN 43688878560 No Longer Active Vishal Hui MD Active LORATADINE 10 MG TABS 1 tab po qd LORATADINE 20198408037 No Longer Active Vishal Hui MD Active VERAPAMIL HCL ER 180 MG CR-TABS 1 tab po bid VERAPAMIL HCL 59041181950 No Longer Active Vishal Hui MD Active MIRALAX POWD 1 capfull once daily POLYETHYLENE GLYCOL 3350 80813333986 No Longer Active Vishal Hui MD Active PREDNISONE 20 MG TABS 1 tab po qd PREDNISONE 18652986519 No Longer Active Renzo Thornton DO Active LEVOFLOXACIN 500 MG TABS 1 tab po qd LEVOFLOXACIN 36867733415 No Longer Active Renzo Thornton DO Active BUSPIRONE HCL 15 MG TABS 1 tab po TID BUSPIRONE HCL 77947514829 No Longer Active Renzo Thornton DO Active BENZTROPINE MESYLATE 1 MG TABS 1 tab po qd BENZTROPINE MESYLATE 60121155119 No Longer Active Renzo Thornton DO Active ATENOLOL 25 MG TABS 1 tab po qd ATENOLOL 32735954063 No Longer Active Renzo Thornton DO Active ESCITALOPRAM OXALATE 20 MG TABS 1 tab po qd ESCITALOPRAM OXALATE 67219510981 No Longer Active Renzo Thornton DO Active ADVAIR DISKUS 250-50 MCG/DOSE AEPB 1 puff BID FLUTICASONE-SALMETEROL 25043474608 No Longer Active Renzo Thornton DO Active PREDNISONE 20 MG TAB 2 tabs daily for 3 days, 1 tab daily for 3 days, 1/2 tab daily for 2 days PREDNISONE 42087501258 No Longer Active Vishal Hui MD Active CEFDINIR 300 MG CAPS by mouth twice a day CEFDINIR 47203866067 No Longer Active Vishal Hui MD Active LANSOPRAZOLE 30 MG CPDR 1 cap po qd LANSOPRAZOLE 32125317034 No Longer Active Vishal Hui MD Active BACLOFEN 20 MG TABS 1 tab po tid BACLOFEN 00164074215 No Longer Active Vishal Hui MD Active ADVAIR DISKUS 250-50 MCG/DOSE AEPB 1 puff BID ADVAIR DISKUS 250-50 MCG/DOSE AEPB FLUTICASONE-SALMETEROL Inactive ESCITALOPRAM OXALATE 20 MG TABS 1 tab po qd ESCITALOPRAM OXALATE 20 MG TABS 796754 ESCITALOPRAM OXALATE Inactive ATENOLOL 25 MG TABS 1 tab po qd ATENOLOL 25 MG TABS 426627 ATENOLOL Inactive BENZTROPINE MESYLATE 1 MG TABS 1 tab po qd BENZTROPINE MESYLATE 1 MG TABS 062939 BENZTROPINE MESYLATE Inactive BUSPIRONE HCL 15 MG TABS 1 tab po TID BUSPIRONE HCL 15 MG TABS 042931 BUSPIRONE HCL Inactive LEVOFLOXACIN 500 MG TABS 1 tab po qd LEVOFLOXACIN 500 MG TABS 342799 LEVOFLOXACIN Inactive PREDNISONE 20 MG TABS 1 tab po qd PREDNISONE 20 MG TABS 394476 PREDNISONE Inactive MIRALAX POWD 1 capfull once daily MIRALAX POWD 476152 POLYETHYLENE GLYCOL 3350 Inactive VERAPAMIL HCL ER 180 MG CR-TABS 1 tab po bid VERAPAMIL HCL ER 180 MG CR-TABS VERAPAMIL HCL Inactive LORATADINE 10 MG TABS 1 tab po qd LORATADINE 10 MG TABS 619942 LORATADINE Inactive LYRICA 50 MG CAPS 1 tab po TID LYRICA 50 MG CAPS PREGABALIN Inactive ZALEPLON 10 MG CAPS 1 cap po every other night ZALEPLON 10 MG CAPS 461266 ZALEPLON Inactive SAPHRIS 5 MG SUBL 1 tab po qd SAPHRIS 5 MG SUBL ASENAPINE MALEATE Inactive TRAZODONE HCL 50 MG TABS 1/2 tab po qd prn for anxiety TRAZODONE HCL 50 MG TABS 731252 TRAZODONE HCL Inactive LATUDA 20 MG TABS Take one by mouth daily LATUDA 20 MG TABS LURASIDONE HCL Inactive LISINOPRIL 20 MG TABS 1 tab po qd LISINOPRIL 20 MG TABS 042049 LISINOPRIL Inactive SAPHRIS 10 MG SUBL 1 [...] twice daily BACTRIM DS 800-160 MG TAB 812828 TRIMETHOPRIM-SULFAMETHOXAZOLE Inactive MULTIVITAMINS CAPS Take one by mouth daily MULTIVITAMINS CAPS MULTIPLE VITAMIN Inactive MELATONIN 3 MG CAPS 2 po q hs MELATONIN 3 MG CAPS 180976 MELATONIN Inactive KEFLEX 500 MG ORAL CAPS 1 cap QID by mouth KEFLEX 500 MG ORAL CAPS 143375 CEPHALEXIN Inactive CLINDAMYCIN HCL 150 MG CAPS 1 four times a day CLINDAMYCIN HCL 150 MG CAPS 374240 CLINDAMYCIN HCL Inactive DIFLUCAN 150 MG TAB 1 tablet by mouth daily DIFLUCAN 150 MG TAB 653781 FLUCONAZOLE Inactive PROZAC 20 MG CAP Take one by mouth daily PROZAC 20 MG CAP 454664 FLUOXETINE HCL Inactive IBUPROFEN 600 MG TAB 1 po TID PRN IBUPROFEN 600 MG TAB 377293 IBUPROFEN Inactive VYVANSE 40 MG CAPS 1 daily, VYVANSE 40 MG CAPS LISDEXAMFETAMINE DIMESYLATE Inactive TRAZODONE HCL 100 MG TAB take 1 at bedtime TRAZODONE HCL 100 MG TAB 758053 TRAZODONE HCL Inactive AMITRIPTYLINE HCL 100 MG TAB one at hs AMITRIPTYLINE HCL 100 MG TAB 364897 AMITRIPTYLINE HCL Inactive AMLODIPINE BESYLATE 5 MG TABS 1 tablet by mouth daily AMLODIPINE BESYLATE 5 MG TABS 311628 AMLODIPINE BESYLATE Inactive LATUDA 80 MG TABS Take one by mouth daily LATUDA 80 MG TABS LURASIDONE HCL Inactive SAPHRIS 5 MG SUBL 1 po bid SAPHRIS 5 MG SUBL ASENAPINE MALEATE Inactive PREDNISONE 20 MG TAB 2 tabs daily for 4 days, 1 tab daily for 4 days, 1/2 tab daily for 4 days PREDNISONE 20 MG TAB 625888 PREDNISONE Inactive AMBIEN 5 MG ORAL TABS 1 tab at bedtime AMBIEN 5 MG ORAL TABS 941234 ZOLPIDEM TARTRATE Inactive PROZAC 20 MG ORAL CAPS 1 tab daily PROZAC 20 MG ORAL CAPS 649552 FLUOXETINE HCL Inactive ABILIFY 15 MG ORAL TABS 1 tab daily ABILIFY 15 MG ORAL TABS 720838 ARIPIPRAZOLE Inactive METOPROLOL TARTRATE 50 MG TAB 1 po bid METOPROLOL TARTRATE 50 MG TAB 517769 METOPROLOL TARTRATE Inactive TRAMADOL HCL 50 MG TABS 1-2 po TID PRN Pain TRAMADOL HCL 50 MG TABS 303209 TRAMADOL HCL Inactive PIROXICAM 20 MG CAPS 1 cap po qd PRN Pain PIROXICAM 20 MG CAPS 490460 PIROXICAM Inactive MINIPRESS 2 MG CAPS 4 cap po at night MINIPRESS 2 MG CAPS 662041 PRAZOSIN HCL Inactive MIRALAX PACK 1 po qd PRN Constipation MIRALAX PACK 542214 POLYETHYLENE GLYCOL 3350 Inactive METOPROLOL TARTRATE 25 MG ORAL TABS 1/2 tablet twice daily for heart rate and blood pressure METOPROLOL TARTRATE 25 MG ORAL TABS 792486 METOPROLOL TARTRATE Inactive VALIUM 5 MG TAB Take 1-2 tablets daily VALIUM 5 MG TAB 573754 DIAZEPAM Inactive FLAGYL 500 MG TAB 1 tablet by mouth bid FLAGYL 500 MG TAB 289006 METRONIDAZOLE Inactive DICLOFENAC POTASSIUM TABS Take 1 tablet twice a day (pt. is not sure of the dose.) DICLOFENAC POTASSIUM TABS DICLOFENAC POTASSIUM TABS Inactive ZITHROMAX Z-EARNEST 250 MG TABS 2 today and then 1 daily for 4 days ZITHROMAX Z-EARNEST 250 MG TABS 5341692 AZITHROMYCIN Inactive PREDNISONE 20 MG TABS 2 daily for 5 days then 1 daily for 5 days PREDNISONE 20 MG TABS 483129 PREDNISONE Inactive PROAIR HFA 108 (90 BASE) MCG/ACT AERS 2 puffs four times a day as needed 2015 PROAIR HFA 108 (90 BASE) MCG/ACT AERS ALBUTEROL SULFATE Inactive HYDROCODONE-ACETAMINOPHEN 5-325 MG TABS 1 to 2 four times a day as needed for pain use until can be seen by specialist HYDROCODONE- ACETAMINOPHEN 5-325 MG TABS 310526 HYDROCODONE-ACETAMINOPHEN Inactive TESSALON PERLES 100 MG CAP 1 to 2 tablets by mouth 3 times daily as needed for cough TESSALON PERLES 100 MG CAP 123879 BENZONATATE Inactive CHANTIX STARTING MONTH EARNEST 0.5 [...] Pain 2015 DICLOFENAC SODIUM 50 MG TBEC 427550 DICLOFENAC SODIUM Inactive TOPAMAX 50 MG ORAL TABS 1 tab twice daily TOPAMAX 50 MG ORAL TABS 583448 TOPIRAMATE Inactive VIIBRYD 10 MG ORAL TABS Take 1 tablet once a day VIIBRYD 10 MG ORAL TABS VILAZODONE HCL Inactive LEVOFLOXACIN 500 MG ORAL TABS po daily LEVOFLOXACIN 500 MG ORAL TABS 143570 LEVOFLOXACIN Inactive METHYLPREDNISOLONE 4 MG ORAL TABS po daily METHYLPREDNISOLONE 4 MG ORAL TABS 292938 METHYLPREDNISOLONE Inactive OXYCODONE HCL ER 10 MG ORAL T12A 1/2 tab by mouth every 4 hours prn OXYCODONE HCL ER 10 MG ORAL T12A OXYCODONE HCL Inactive FLAGYL 500 MG TAB 1 tablet by mouth bid FLAGYL 500 MG TAB 845533 METRONIDAZOLE Inactive MONISTAT 7 COMBO PACK WOODROW 100 & 2 MG-% (9GM) VAG KIT 1 applicatorful per vagina q pm x 7 MONISTAT 7 COMBO PACK WOODROW 100 & 2 MG-% (9GM) VAG KIT MICONAZOLE NITRATE Inactive BACTRIM DS 800-160 MG TABS 1 twice a day BACTRIM DS 800-160 MG TABS 191047 SULFAMETHOXAZOLE-TRIMETHOPRIM Inactive TRAMADOL HCL 50 MG TABS 1/2-1 tab TID PRN TRAMADOL HCL 50 MG TABS 421162 TRAMADOL HCL Inactive ABILIFY MAINTENA 400 MG IM SUSR 400mg injection every 26 days ABILIFY MAINTENA 400 MG IM SUSR ARIPIPRAZOLE Inactive KLONOPIN 1 MG ORAL TABS 1 tab po TID KLONOPIN 1 MG ORAL TABS 130122 CLONAZEPAM Inactive ADVAIR DISKUS 250-50 MCG/DOSE INH AEPB 1 puff twice a day for asthma ADVAIR DISKUS 250-50 MCG/DOSE INH AEPB FLUTICASONE- SALMETEROL Inactive BENADRYL 25 MG CAP 4 po at bedtime for insomnia BENADRYL 25 MG CAP DIPHENHYDRAMINE HCL Inactive PREDNISONE 20 MG TABS 2 daily for 5 days then 1 daily for 5 days PREDNISONE 20 MG TABS 620896 PREDNISONE Inactive HYDROCODONE-ACETAMINOPHEN 5-325 MG ORAL TABS 1 tab two times a day HYDROCODONE-ACETAMINOPHEN 5-325 MG ORAL TABS 650008 HYDROCODONE-ACETAMINOPHEN Inactive ZITHROMAX Z-EARNEST 250 MG TABS 2 today and then 1 daily for 4 days ZITHROMAX Z-EARNEST 250 MG TABS [id number] AZITHROMYCIN Inactive GUAIFENESIN-CODEINE 100-10 MG/5ML SYRP 5ml every 4 to 6 hours as needed for cough GUAIFENESIN-CODEINE 100-10 MG/5ML SYRP [id number] GUAIFENESIN-CODEINE Inactive HALOPERIDOL 10 MG ORAL TABS 1 tab q.d HALOPERIDOL 10 MG ORAL TABS 329109 HALOPERIDOL Inactive ASPIRIN 325 MG ORAL TABS 1 tab q.d ASPIRIN 325 MG ORAL TABS 247381 ASPIRIN Inactive FLUTICASONE PROPIONATE 50 MCG/ACT SUSP 2 sprays each nostril daily before bed. FLUTICASONE PROPIONATE 50 MCG/ACT SUSP [id number] FLUTICASONE PROPIONATE Inactive ZOFRAN 4 MG TABS 1 po q6hr PRN Nausea ZOFRAN 4 MG TABS [id number] ONDANSETRON HCL Inactive KEFLEX 500 MG CAP 1 po qid KEFLEX 500 MG CAP 273350 CEPHALEXIN Inactive ACETAMINOPHEN-CODEINE 120-12 MG/5ML SOLN 5 ml by mouth every 4-6 hours if needed for cough ACETAMINOPHEN-CODEINE 120-12 MG/5ML SOLN 730523 ACETAMINOPHEN-CODEINE Inactive PREDNISONE 20 MG TAB 1 tablet daily x 4 days PREDNISONE 20 MG TAB 368443 PREDNISONE Inactive TROPICAMIDE 0.5 % OPHTH SOLN 1 drop PRN eye spasms TROPICAMIDE 0.5 % OPHTH SOLN 583621 TROPICAMIDE Inactive LEVAQUIN 500 MG TABS 1 daily for infection LEVAQUIN 500 MG TABS 389777 LEVOFLOXACIN Inactive PREDNISONE 10 MG TABS 2 daily for 5 days then 1 daily for 5 days PREDNISONE 10 MG TABS 203650 PREDNISONE Inactive EQ NICOTINE 21 MG/24HR TRANS [...] PERLES 100 MG CAPS [id number] BENZONATATE Inactive AMITIZA 8 MCG ORAL CAPS [...] twice a day MUPIROCIN 2 % OINT 520166 MUPIROCIN Inactive BACTRIM DS 800-160 MG TAB Take one (1) tablet by mouth twice a day for 5 days BACTRIM DS 800-160 MG TAB 19820521 TRIMETHOPRIM- SULFAMETHOXAZOLE Inactive LACTULOSE 10 GM/15ML ORAL SOLN 30mL oral BID for IBS-C LACTULOSE 10 GM/15ML ORAL SOLN 182643 LACTULOSE Inactive MIRALAX ORAL POWD 17GMS DAILY IN WATER MIRALAX ORAL POWD 969236 POLYETHYLENE GLYCOL 3350 Inactive CEFDINIR 300 MG CAPS by mouth twice a day CEFDINIR 300 MG CAPS 584200 CEFDINIR Inactive PREDNISONE 20 MG TAB 2 tabs daily for 3 days, 1 tab daily for 3 days, 1/2 tab daily for 2 days PREDNISONE 20 MG TAB 461354 PREDNISONE Inactive BACTRIM DS 800-160 MG TABS 1 po BID x 7 days BACTRIM DS 800-160 MG TABS 19820521 SULFAMETHOXAZOLE-TRIMETHOPRIM Inactive DIFLUCAN 150 MG TABS 1 pill every other day x 2 doses DIFLUCAN 150 MG TABS 911437 FLUCONAZOLE Inactive BACTRIM DS 800-160 MG TABS 1 pill by mouth twice daily BACTRIM DS 800-160 MG TABS 19820521 SULFAMETHOXAZOLE-TRIMETHOPRIM Inactive KEFLEX 500 MG CAP 1 po TID x 10 days KEFLEX 500 MG CAP 161896 CEPHALEXIN Inactive Advance Directives Directive Description Start Date DISCUSSED WITH PATIENT -- NO DECISION MADE Vital Signs Date Name Value Unit Range Description blood pressure, diastolic 79 mm[Hg] BP mcnally [...] % 11.0-15.0 platelet count 443 THOUSAND/UL 10*3/mm3 046-385 1582/03/01 mean platelet volume 8.2 fL 7.5-12.5 leukocyte [...] % 11.0-15.0 platelet count 349 THOUSAND/UL 10*3/mm3 276-297 0241/04/12 mean platelet volume 8.4 fL 7.5-12.5 Lab [...] 369 10^3/MM^3 10*3/mm3 142-424 Lab Report: Chlamydia/GC APTIMA/89260 - Lab chlamydia DNA probe NOT DETECTED NOT DETECTED Lab Report: Chlamydia/GC APTIMA/37367 - Microbiology Neisseria gonorrhoeae DNA probe NOT DETECTED NOT DETECTED Lab Report: Chlamydia/GC APTIMA/72835, Urinalysis, Complete, with Reflex ... - Lab chlamydia DNA probe NOT DETECTED NOT DETECTED Lab Report: Chlamydia/GC APTIMA/23001, Urinalysis, Complete, with Reflex ... - Microbiology Neisseria gonorrhoeae DNA probe NOT DETECTED NOT DETECTED Lab Report: Chlamydia/GC APTIMA/69991, Urinalysis, Complete, with Reflex ... - Urinalysis microalbumin/total urine volume 2 mg/L Units converted. See lab report for original value. microalbumin/creatinine ratio, urine 9 MCG/MG CREAT mg/L <30 Lab Report: Comp. Metabolic Panel - Chemistry sodium, serum 140 mmol/L 117-865 4114/08/08 carbon dioxide, venous blood 33.7 mmol/L 21.0-32.0 potassium, serum 5.0 mmol/L 3.5-5.2 chloride, serum 103 mmol/L 98-107 blood glucose 80 mg/dL 65-110 urea nitrogen, blood 13 mg/dL 7-18 creatinine, serum 0.88 mg/dL 0.55-1.30 alanine aminotransferase (SGPT), serum 54 U/L 12-78 aspartate aminotransferase (SGOT), serum 29 U/L 15-37 calcium, serum 9.7 mg/dL 8.5-10.1 bilirubin, serum, total 0.30 mg/dL 0.00-1.00 sodium, serum 140 mmol/L 194-886 0382/06/28 carbon dioxide, venous blood 23.8 mmol/L 21.0-32.0 [...] 5.0-8.5 Encounters Code Encounter Date Provider Facility CPT-82585 Level 3 Est. Patient 10:53:17 CDT [facility] CPT-00627 Level 3 Est. Patient 11:08:35 CDT [facility] CPT-31624 Level 3 Est. Patient 15:55:20 [facility] Level 4 Est. Patient 10:49:34 [facility] Level 3 Est. Patient 10:00:25 CDT [facility] CPT-35622 Level 3 Est. Patient 10:29:30 CDT [facility] CPT-98349 Level 3 Est. Patient 11:04:38 CDT Renzo Thornton [facility] CPT-09677 Level 3 Est. Patient 11:15:58 TAPPER BIT Renzo Thornton [facility] CPT-64396 Level 3 Est. Patient 15:28:23 TAPPER BIT [facility] CPT-05368 Level 4 Est. Patient 10:20:54 TAPPER BIT [facility] CPT-87914 Level 3 Est. Patient 11:47:37 TAPPER BIT Amhet Carbajal MD [facility] CPT-79726 Level 3 Est. Patient 10:40:11 TAPPER BIT Ahmet Carbajal MD [facility] CPT-12491 Level 3 Est. Patient 15:07:06 TAPPER BIT Neeraj Collins MD [facility] CPT-18424 Level 4 Est. Patient 14:45:00 TAPPER BIT Ahmet Carbajal MD [facility] CPT-38016 Level 3 Est. Patient 13:59:59 CDT 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 CPT-91814 Level 3 Est. Patient 18:18:53 CDT Neeraj Collins MD [facility] CPT-79184 Level 3 Est. Patient 15:50:44 CDT Vishal Hui MD [facility] CPT-01464 Level 3 Est. Patient 11:36:17 CDT Ahmet Carbajal MD [facility] CPT-70009 Level 3 Est. Patient 13:29:16 CDT Vishal Hui MD [facility] CPT-27903 Level 3 Est. Patient 14:27:52 CDT Neeraj Collins MD [facility] CPT-33498 Level 3 Est. Patient 08:56:03 CDT 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 CPT-28216 Level 4 Est. Patient 12:11:48 CDT [facility] CPT-90541 Level 3 New Patient 16:53:37 CDT Albert Caldera MD [facility] CPT-66280 Level 3 Est. Patient 11:25:49 CDT Renzo Thornton DO [facility] CPT-53035 Level 3 Est. Patient 15:22:01 CDT Ahmet Carbajal MD [facility] CPT-65071 Level 4 Est. Patient 09:00:51 TAPPER BIT Vishal Hui MD [facility] CPT-08823 Level 3 Est. Patient 11:37:33 TAPPER BIT Vishal Hui MD [facility] CPT-24028 Level 3 Est. Patient 08:41:09 TAPPER BIT Vishal Hui MD [facility] CPT-48389 Level 4 Est. Patient 10:19:35 TAPPER BIT Vishal Hui MD [facility] CPT-76886 Level 3 Est. Patient 13:35:45 CDT Vishal Hui MD [facility] CPT-15920 Level 4 Est. Patient 10:08:37 CDT Vishal Hui MD [facility] CPT-18735 Level 3 Est. Patient 11:22:10 CDT Vishal Hui MD [facility] CPT-59926 Level 3 Est. Patient 11:03:32 CDT Sahara Rodriguez MD [facility] CPT-46520 Level 3 Est. Patient 09:41:35 CDT Vishal Hui MD [facility] CPT-18793 Level 3 Est. Patient 12:00:41 CDT Neeraj Collins MD [facility] CPT-25108 Level 3 Est. Patient 09:16:24 CDT Vishal Hui MD [facility] CPT-94328 Level 4 Est. Patient 13:59:09 CDT Neeraj Collins MD [facility] CPT-75848 Level 3 Est. Patient 15:19:43 CDT Renzo Thornton DO [facility] CPT-73988 Level 3 Est. Patient 18:10:26 CDT Sahara Rodriguez MD PhD [facility]-06499 Level 3 Est. Patient 14:49:50 CDT Vishal Hui MD [facility] CPT-47633 Level 4 Est. Patient 18:41:46 CDT Neeraj Collins MD [facility] CPT-72534 Level 4 Est. Patient 09:18:38 TAPPER BIT Vishal Hui MD [facility] CPT-11881 Level 3 Est. Patient 14:43:55 TAPPER BIT Vishal Hui MD [facility] CPT-85886 Level 3 Est. Patient 15:26:33 TAPPER BIT Sahara Rodriguez MD PhD [facility] CPT-30663 Level 3 Est. Patient 10:32:14 TAPPER BIT Vishal Hui MD [facility] CPT-61885 Level 3 Est. Patient 15:12:52 TAPPER BIT Vishal Hui MD [facility] CPT-50430 Level 4 Est. Patient 09:19:27 CDT Vishal Hui MD [facility] CPT-63142 Level 3 Est. Patient 15:53:00 CDT Renzo Barajas [facility] CPT-34171 Level 3 Est. Patient 15:50:30 CDT Renzo Barajas [facility] CPT-07320 Level 3 Est. Patient 16:55:24 CDT Vishal Hui MD [facility] Procedures Code Procedure Name Date Entry Date Standard Description CPT-54730 Venipuncture Draw Fee 10:53:17 CDT CPT-78697 EKG Trac and Interp - XRAY USE ONLY 15:59:30 CDT 09/13 CPT-97948 Chest 1V Frontal - XRAY USE ONLY 15:59:30 CDT CPT-04789 Venipuncture Draw Fee 15:44:02 CDT CPT-10813 Venipuncture Draw Fee 08:41:12 CDT CPT-80323 Abd compl w upright - XRAY USE ONLY 10:27:59 CDT 06/28 CPT-85110 Smoking Cessation counseling 11:15:58 TAPPER BIT CPT-G0439 [facility] Annual Wellness Exam 09:30:58 TAPPER BIT CPT-77897 TSH - LAB USE ONLY 08:50:26 TAPPER BIT CPT-04476 CBC - LAB USE ONLY 08:50:26 TAPPER BIT CPT-42071 Venipuncture Draw Fee 08:50:26 TAPPER BIT CPT-16374 Abx/Therapy Injection 17:34:30 TAPPER BIT CPT-70050 Nexplanon Removal with Reinsertion 14:09:32 CDT CPT-J7307 Nexplanon (Implant) 14:09:32 CDT CPT-OV Office Visit 14:09:32 CDT CPT-98931 UA w micro - LAB USE ONLY 16:21:13 CDT CPT-70023 Wet Mount - LAB USE ONLY 16:21:13 CDT CPT-55213 First Vx - Ix admin for Medicare patients 14:37:47 CDT CPT-90852 Fluzone Preservative Free Intramuscular Suspension 14:37 :47 CDT CPT-00236 Abx/Therapy Injection 13:54:22 CDT CPT-27695 Abx/Therapy Injection 08:47:09 CDT CPT-00502 Abx/Therapy Injection 13:29:56 CDT CPT-42624 Abx/Therapy Injection 08:36:16 CDT CPT-55972 Wet Mount - LAB USE ONLY 17:44:58 CDT CPT-73334 UA w micro - LAB USE ONLY 17:44:58 CDT CPT-49748 CMP - LAB USE ONLY 17:44:58 CDT CPT-47028 Venipuncture Draw Fee 17:44:58 CDT CPT-77587 Cervical Min 4V - XRAY USE ONLY 09:01:40 CDT CPT-65870 Chest 2V Frontal and Lat - XRAY USE ONLY 11:06:31 CDT CPT-69712 EKG Trac and Interp - XRAY USE ONLY 11:31:43 CDT 08/26 CPT-J3420 Vitamin B12 1000mcg (Cyanocobalamin) 08:10:26 TAPPER BIT 04/12 CPT-11410 Abx/Therapy Injection 08:10:26 TAPPER BIT CPT-G0438 Initial Annual Wellness Exam 19:01:01 TAPPER BIT CPT-J3420 Vitamin B12 1000mcg (Cyanocobalamin) 16:57:46 CDT 08/14 CPT-99247 Recombivax HB Injection Suspension 5 MCG/0.5ML 08:37:50 TAPPER BIT CPT-36469 Immunization Single Admin 08:37:50 TAPPER BIT CPT-J3420 Vitamin B12 1000mcg (Cyanocobalamin) 08:32:16 TAPPER BIT 03/11 CPT-61763 Abx/Therapy Injection 08:32:16 TAPPER BIT CPT-72195 Chest 2V Frontal and Lat 11:46:38 TAPPER BIT CPT-46124 Venipuncture Draw Fee 09:12:45 TAPPER BIT CPT-J3420 Vitamin B12 1000mcg (Cyanocobalamin) 08:50:15 TAPPER BIT 02/08 CPT-32172 Abx/Therapy Injection 08:50:15 TAPPER BIT CPT-Cryo Cryotherapy 10:19:35 TAPPER BIT CPT-000 Give Appropriate Flu Vaccine 09:22:16 CDT CPT-J3420 Vitamin B12 1000mcg (Cyanocobalamin) 19:08:57 CDT 01/11 CPT-47521 Abx/Therapy Injection 19:08:57 CDT CPT-J3420 Vitamin B12 1000mcg (Cyanocobalamin) 08:19:08 CDT 12/11 CPT-18626 Abx/Therapy Injection 08:19:08 CDT CPT-J3420 Vitamin B12 1000mcg (Cyanocobalamin) 14:48:00 CDT 11/09 CPT-34672 Abx/Therapy Injection 14:47:59 CDT CPT-J3420 Vitamin B12 1000mcg (Cyanocobalamin) 08:34:04 CDT 10/09 CPT-05192 Abx/Therapy Injection 08:34:04 CDT CPT-J3420 Vitamin B12 1000mcg (Cyanocobalamin) 09:18:52 CDT 09/11 CPT-59857 Abx/Therapy Injection 09:18:52 CDT CPT-J3420 Vitamin B12 1000mcg (Cyanocobalamin) 08:35:44 CDT 09/04 CPT-84163 Abx/Therapy Injection 08:35:44 CDT CPT-05357 Immunization Single Admin 11:07:16 CDT CPT-60863 Hepatitis B adult IM 11:07:16 CDT CPT-J3420 Vitamin B12 1000mcg (Cyanocobalamin) 11:00:49 CDT 08/28 CPT-J1040 Depo Medrol 80 mg (Methyl Prednisolone Acetate) 11:00: 49 CDT CPT-68695 Abx/Therapy Injection 11:00:49 CDT CPT-J1040 Depo Medrol 80 mg (Methyl Prednisolone Acetate) 09:16: 23 CDT CPT-J3420 Vitamin B12 1000mcg (Cyanocobalamin) 08:27:05 CDT 08/20 CPT-19586 Abx/Therapy Injection 08:27:05 CDT CPT-21537 Recombivax HB Injection Suspension 5 MCG/0.5ML 10:00:41 CDT CPT-83561 Administration single or combination vaccine inc oral 10 :00:41 CDT CPT-40638 Sono transvag pelvis non OB uterus ovaries cervix 16:36: 57 CDT CPT-25999 LS spine comp w obliq 09:50:55 TAPPER BIT CPT-94473 Abd compl w upright 09:50:55 TAPPER BIT CPT-J1100 Decadron 4mg (Dexamethasone) 15:51:24 TAPPER BIT CPT-J1030 Depo Medrol 40 mg (Methyl Prednisolone Acetate) 15:51: 24 TAPPER BIT CPT-91699 Abx/Therapy Injection 15:51:24 TAPPER BIT CPT-J1100 Decadron 4mg (Dexamethasone) 15:26:33 TAPPER BIT CPT-J1030 Depo Medrol 40 mg (Methyl Prednisolone Acetate) 15:26: 33 TAPPER BIT CPT-24492 Sono retroperitoneal complete kidneys and bladder 17:15: 30 CDT CPT-04694 Abd compl w upright 16:09:25 CDT CPT-J1100 Decadron 8mg (Dexamethasone) 17:07:57 CDT CPT-80919 Abx/Therapy Injection 17:07:57 CDT CPT-J1100 Decadron 8mg (Dexamethasone) 16:55:24 CDT CPT-80106 Chest 2V Frontal and Lat 16:32:44 CDT
--- OUTSIDE RECORDS SUMMARY | 2016-11-04 11:39 | XMS REPORT | Clinical Summary ---
Author Author Admin, E Organization [facility] Address Unknown Phone Unavailable Allergies, Adverse Reactions, [...] for removal of sutures Hot flashes 627.2 Active Vishal Hui MD Symptomatic menopausal or female climacteric states Gastroesophageal reflux disease 530.81 Active Vishal Hui MD Esophageal reflux Personality change 301.9 Active Michelle MCDONALD Unspecified personality disorder Leukocytosis 288.60 Active Vishal Hui MD Leukocytosis, unspecified UTI 599.0 Active Tasneem Mondragon Urinary tract infection, site not specified Headache, atypical 784.0 Active 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 TERRAZZO LAYER Headache Elevated blood glucose 790.29 Active Demetrius Madrid RN Other abnormal glucose Anxiety Disorder ICD-300.00 Inactive Vishal Hui MD Flank pain, right ICD-789.09 Inactive Vishal Hui MD G E R D ICD-530.81 Inactive Vishal Hui MD Pneumonia, organism unspecified ICD-486 Inactive Vishal Hui MD Abdominal pain ICD-789.00 [...] MD Fatigue ICD-780.79 Jim Hui MD 2014 Medication List Medication Instructions Start Date Stop Date Generic Name NDC Status Provider Patient Instruction IMITREX 50 MG ORAL TABS 1/2 tab every 6 hours prn SUMATRIPTAN SUCCINATE 82248226407 Active Jillina Frazell TERRAZZ[employer]AYER Active AMBIEN 5 MG ORAL TABS 1 tab at bedtime ZOLPIDEM TARTRATE 09109807729 Active Jillina Frazell TERRAZZO LAYER Active PROZAC 20 MG ORAL CAPS 1 tab daily FLUOXETINE HCL 46241943869 Active Jillina Frazell TERRAZZO LAYER Active ABILIFY 15 MG ORAL TABS 1 tab daily ARIPIPRAZOLE 43958725409 Active Jillina Frazell TERRAZZO LAYER Active MINIPRESS 2 MG CAPS 4 cap po at night PRAZOSIN HCL 27024569072 Active Jillina Frazell TERRAZZO LAYER Active TOPAMAX 50 MG ORAL TABS 1 tab twice daily TOPIRAMATE 09820909270 Active Jillina Frazell TERRAZZO LAYER Active SAPHRIS 5 MG SUBL 1 po bid ASENAPINE MALEATE 89451933388 No Longer Active Pacollina Frazell TERRAZZO LAYER Active LATUDA 80 MG TABS Take one by mouth daily LURASIDONE HCL 86541341110 No Longer Active Pacollina Johnl TERRAZZO LAYER Active AMLODIPINE BESYLATE 5 MG TABS 1 tablet by mouth daily AMLODIPINE BESYLATE 39608704097 No Longer Active Tataina Johnl TERRAZZO LAYER Active AMITRIPTYLINE HCL 100 MG TAB one at hs AMITRIPTYLINE HCL 83546083555 No Longer Active Vishal Hui MD Active TRAZODONE HCL 100 MG TAB take 1 at bedtime TRAZODONE HCL 11640460014 No Longer Active Vishal Hui MD Active VYVANSE 40 MG CAPS 1 daily, LISDEXAMFETAMINE DIMESYLATE 98785177294 No Longer Active Vishal Hui MD Active IBUPROFEN 600 MG TAB 1 po TID PRN IBUPROFEN 57904785348 No Longer Active Vishal Hui MD Active MIRALAX PACK 1 po qd PRN Constipation POLYETHYLENE GLYCOL 3350 84612687139 Active Vishal Hui MD Active PROZAC 20 MG CAP Take one by mouth daily FLUOXETINE HCL 38822101714 No Longer Active Vishal Hui MD Active ZOFRAN 4 MG TABS 1 po q6hr PRN Nausea ONDANSETRON HCL Active Vishal Hui MD Active BACTRIM DS 800-160 MG TABS 1 pill by mouth twice daily SULFAMETHOXAZOLE-TRIMETHOPRIM 42774894501 No Longer Active Sahara Rodriguez MD PhD Active DIFLUCAN 150 MG TAB 1 tablet by mouth daily FLUCONAZOLE 47013167209 No Longer Active Vishal Hui MD Active TIZANIDINE HCL 4 MG TABS 1 po q6hr PRN Muscle Spasm/Back Pain TIZANIDINE HCL 71729448112 Active Vishal Hui MD Active CLINDAMYCIN HCL 150 MG CAPS 1 four times a day CLINDAMYCIN HCL 95938673258 No Longer Active Neeraj Collins MD Active KEFLEX 500 MG ORAL CAPS 1 cap QID by mouth CEPHALEXIN 28461816294 No Longer Active Neeraj Collins MD Active DIFLUCAN 150 MG TABS 1 pill every other day x 2 doses FLUCONAZOLE 04941851541 No Longer Active Sahara Rodriguez MD PhD Active MELATONIN 3 MG CAPS 2 po q hs MELATONIN 46773748657 No Longer Active Sahara Rodriguez MD PhD Active MULTIVITAMINS CAPS Take one by mouth daily MULTIPLE VITAMIN 52953631574 No Longer Active Sahara Rodriguez MD PhD Active BACTRIM DS 800-160 MG TAB 1 tab by mouth twice daily TRIMETHOPRIM-SULFAMETHOXAZOLE 97748097277 No Longer Active Sahara Rodriguez MD PhD Active [facility] PROBIOTIC ORAL CHEW 2 daily po PROBIOTIC PRODUCT 96696404036 No Longer Active Sahara Rodriguez MD PhD Active BACTRIM DS 800-160 MG TABS 1 po BID x 7 days SULFAMETHOXAZOLE-TRIMETHOPRIM 05060108972 No Longer Active Vishal Hui MD Active CHANTIX STARTING MONTH EARNEST 0.5 MG X 11 & 1 MG X 42 TABS 0.5mg daily for 3 days , then 0.5mg BID for 4 days, then 1mg BID VARENICLINE TARTRATE 12004392099 No Longer Active TAMARA Gray Active METOPROLOL TARTRATE 50 MG TAB 1 po bid METOPROLOL TARTRATE 97089935858 Active Vishal Hui MD Active VERAPAMIL HCL CR 120 MG TAB CR 1 po bid VERAPAMIL HCL 82815775482 No Longer Active Vishal Hui MD Active METOPROLOL SUCCINATE 50 MG TB24 1 tablet by mouth daily METOPROLOL SUCCINATE 78017564987 No Longer Active Vishal Hui MD Active TRAMADOL HCL 50 MG TABS 1-2 po TID PRN Pain TRAMADOL HCL 37266818356 Active Vishal Hui MD Active SAPHRIS 10 MG SUBL 1 tab po bid ASENAPINE MALEATE 44426498087 No Longer Active Vishal Hui MD Active LISINOPRIL 20 MG TABS 1 tab po qd LISINOPRIL 30587847499 No Longer Active Vishal Hui MD Active BENADRYL 25 MG CAP 2 po tid prn anxiety DIPHENHYDRAMINE HCL 27901846106 Active Vishal Hui MD Active LATUDA 20 MG TABS Take one by mouth daily LURASIDONE HCL 97932157782 No Longer Active Vishal Hui MD Active TRAZODONE HCL 50 MG TABS 1/2 tab po qd prn for anxiety TRAZODONE HCL 72781057475 No Longer Active Vishal Hui MD Active PIROXICAM 20 MG CAPS 1 cap po qd PRN Pain PIROXICAM 38127585679 Active Vishal Hui MD Active OMEPRAZOLE 20 MG TBEC 1 po q a.m. 30min prior to first food intake OMEPRAZOLE 54813837170 Active Vishal Hui MD Active RANITIDINE HCL 150 MG CAPS 1 twice a day RANITIDINE HCL 09089786947 Active Vishal Hui MD Active LINZESS 290 MCG CAPS Take one by mouth daily LINACLOTIDE 92180248790 No Longer Active Vishal Hui MD Active SAPHRIS 5 MG SUBL 1 tab po qd ASENAPINE MALEATE 41848799173 No Longer Active Vishal Hui MD Active ZALEPLON 10 MG CAPS 1 cap po every other night ZALEPLON 85150113242 No Longer Active Vishal Hui MD Active LYRICA 50 MG CAPS 1 tab po TID PREGABALIN 33244794126 No Longer Active Vishal Hui MD Active LORATADINE 10 MG TABS 1 tab po qd LORATADINE 52961862847 No Longer Active Vishal Hui MD Active VERAPAMIL HCL ER 180 MG CR-TABS 1 tab po bid VERAPAMIL HCL 26455328775 No Longer Active Vishal Hui MD Active MIRALAX POWD 1 capfull once daily POLYETHYLENE GLYCOL 3350 24389963227 No Longer Active Vishal Hui MD Active PREDNISONE 20 MG TABS 1 tab po qd PREDNISONE 02215631314 No Longer Active Renzo Thornton DO Active LEVOFLOXACIN 500 MG TABS 1 tab po qd LEVOFLOXACIN 29559616055 No Longer Active Renzo Thornton DO Active BUSPIRONE HCL 15 MG TABS 1 tab po TID BUSPIRONE HCL 51852079389 No Longer Active Renzo Thornton DO Active BENZTROPINE MESYLATE 1 MG TABS 1 tab po qd BENZTROPINE MESYLATE 05116504404 No Longer Active Renzo Thornton DO Active ATENOLOL 25 MG TABS 1 tab po qd ATENOLOL 21856161173 No Longer Active Renzo Thornton DO Active ESCITALOPRAM OXALATE 20 MG TABS 1 tab po qd ESCITALOPRAM OXALATE 75745435816 No Longer Active Renzo Thornton DO Active ADVAIR DISKUS 250-50 MCG/DOSE AEPB 1 puff BID FLUTICASONE-SALMETEROL 69837459917 No Longer Active Renzo Thornton DO Active PREDNISONE 20 MG TAB 2 tabs daily for 3 days, 1 tab daily for 3 days, 1/2 tab daily for 2 days PREDNISONE 95383777797 No Longer Active Vishal Hui MD Active CEFDINIR 300 MG CAPS by mouth twice a day CEFDINIR 22970986503 No Longer Active Vishal Hui MD Active LANSOPRAZOLE 30 MG CPDR 1 cap po qd LANSOPRAZOLE 25215088186 No Longer Active Vishal Hui MD Active BACLOFEN 20 MG TABS 1 tab po tid BACLOFEN 87027193160 No Longer Active Vishal Hui MD Active ADVAIR DISKUS 250-50 MCG/DOSE AEPB 1 puff BID ADVAIR DISKUS 250-50 MCG/DOSE AEPB FLUTICASONE-SALMETEROL Inactive ESCITALOPRAM OXALATE 20 MG TABS 1 tab po qd ESCITALOPRAM OXALATE 20 MG TABS 657282 ESCITALOPRAM OXALATE Inactive ATENOLOL 25 MG TABS 1 tab po qd ATENOLOL 25 MG TABS 123218 ATENOLOL Inactive BENZTROPINE MESYLATE 1 MG TABS 1 tab po qd BENZTROPINE MESYLATE 1 MG TABS 714572 BENZTROPINE MESYLATE Inactive BUSPIRONE HCL 15 MG TABS 1 tab po TID BUSPIRONE HCL 15 MG TABS 189997 BUSPIRONE HCL Inactive LEVOFLOXACIN 500 MG TABS 1 tab po qd LEVOFLOXACIN 500 MG TABS 161356 LEVOFLOXACIN Inactive PREDNISONE 20 MG TABS 1 tab po qd PREDNISONE 20 MG TABS 522947 PREDNISONE Inactive MIRALAX POWD 1 capfull once daily MIRALAX POWD 626075 POLYETHYLENE GLYCOL 3350 Inactive VERAPAMIL HCL ER 180 MG CR-TABS 1 tab po bid VERAPAMIL HCL ER 180 MG CR-TABS VERAPAMIL HCL Inactive LORATADINE 10 MG TABS 1 tab po qd LORATADINE 10 MG TABS 556439 LORATADINE Inactive LYRICA 50 MG CAPS 1 tab po TID LYRICA 50 MG CAPS PREGABALIN Inactive ZALEPLON 10 MG CAPS 1 cap po every other night ZALEPLON 10 MG CAPS 484482 ZALEPLON Inactive SAPHRIS 5 MG SUBL 1 tab po qd SAPHRIS 5 MG SUBL ASENAPINE MALEATE Inactive TRAZODONE HCL 50 MG TABS 1/2 tab po qd prn for anxiety TRAZODONE HCL 50 MG TABS 561856 TRAZODONE HCL Inactive LATUDA 20 MG TABS Take one by mouth daily LATUDA 20 MG TABS LURASIDONE HCL Inactive LISINOPRIL 20 MG TABS 1 tab po qd LISINOPRIL 20 MG TABS 606437 LISINOPRIL Inactive SAPHRIS 10 MG SUBL 1 [...] twice daily BACTRIM DS 800-160 MG TAB 439616 TRIMETHOPRIM-SULFAMETHOXAZOLE Inactive MULTIVITAMINS CAPS Take one by mouth daily MULTIVITAMINS CAPS MULTIPLE VITAMIN Inactive MELATONIN 3 MG CAPS 2 po q hs MELATONIN 3 MG CAPS 880873 MELATONIN Inactive KEFLEX 500 MG ORAL CAPS 1 cap QID by mouth KEFLEX 500 MG ORAL CAPS 199150 CEPHALEXIN Inactive CLINDAMYCIN HCL 150 MG CAPS 1 four times a day CLINDAMYCIN HCL 150 MG CAPS 424185 CLINDAMYCIN HCL Inactive DIFLUCAN 150 MG TAB 1 tablet by mouth daily DIFLUCAN 150 MG TAB 913334 FLUCONAZOLE Inactive PROZAC 20 MG CAP Take one by mouth daily PROZAC 20 MG CAP 118726 FLUOXETINE HCL Inactive IBUPROFEN 600 MG TAB 1 po TID PRN IBUPROFEN 600 MG TAB 804376 IBUPROFEN Inactive VYVANSE 40 MG CAPS 1 daily, VYVANSE 40 MG CAPS LISDEXAMFETAMINE DIMESYLATE Inactive TRAZODONE HCL 100 MG TAB take 1 at bedtime TRAZODONE HCL 100 MG TAB 781955 TRAZODONE HCL Inactive AMITRIPTYLINE HCL 100 MG TAB one at hs AMITRIPTYLINE HCL 100 MG TAB 177713 AMITRIPTYLINE HCL Inactive AMLODIPINE BESYLATE 5 MG TABS 1 tablet by mouth daily AMLODIPINE BESYLATE 5 MG TABS 382489 AMLODIPINE BESYLATE Inactive LATUDA 80 MG TABS Take one by mouth daily LATUDA 80 MG TABS LURASIDONE HCL Inactive SAPHRIS 5 MG SUBL 1 po bid SAPHRIS 5 MG SUBL ASENAPINE MALEATE Inactive CEFDINIR 300 MG CAPS by mouth twice a day CEFDINIR 300 MG CAPS 203193 CEFDINIR Inactive PREDNISONE 20 MG TAB 2 tabs daily for 3 days, 1 tab daily for 3 days, 1/2 tab daily for 2 days PREDNISONE 20 MG TAB 212297 PREDNISONE Inactive BACTRIM DS 800-160 MG TABS 1 po BID x 7 days BACTRIM DS 800-160 MG TABS 506737 SULFAMETHOXAZOLE-TRIMETHOPRIM Inactive DIFLUCAN 150 MG TABS 1 pill every other day x 2 doses DIFLUCAN 150 MG TABS 090127 FLUCONAZOLE Inactive BACTRIM DS 800-160 MG TABS 1 pill by mouth twice daily BACTRIM DS 800-160 MG TABS 154532 SULFAMETHOXAZOLE-TRIMETHOPRIM Inactive Vital Signs Date Name Value Unit Range Description blood pressure, diastolic - 8462-4 73 mm[Hg] [...] Panel - Chemistry sodium, serum 139 mmol/L 627-847 4662/12/03 carbon dioxide, venous blood 28.5 mmol/L 21.0-32.0 [...] 5.5 % 4.3-6.0 cholesterol, serum 159 mg/dL 827-549 8710/12/03 triglyceride, serum, fasting 118 mg/dL 30-200 HDL [...] ... - Chemistry sodium, serum 140 mmol/L 549-585 3720/05/28 potassium, serum 4.2 mmol/L 3.5-5.2 chloride, serum [...] Panel - Chemistry sodium, serum 141 mmol/L 518-482 7993 potassium, serum 4.3 mmol/L 3.5-5.2 chloride, serum 106 mmol/L 98-107 carbon dioxide, venous blood 25.7 mmol/L 21.0-32.0 blood glucose 119 mg/dL 65-110 urea nitrogen, blood 22 mg/dL 7-18 creatinine, serum 0.90 mg/dL 0.60-1.30 alanine aminotransferase (SGPT), serum 28 U/L 12-78 aspartate aminotransferase (SGOT), serum 13 U/L 15-37 calcium, serum 8.5 mg/dL 8.5-10.1 bilirubin, serum, total 0.20 mg/dL 0.00-1.00 sodium, serum 139 mmol/L 684-366 8004/12/22 carbon dioxide, venous blood 26.8 mmol/L 21.0-32.0 [...] Rate - Chemistry sodium, serum 139 mmol/L 371-829 1590/12/11 carbon dioxide, venous blood 25.4 mmol/L 21.0-32.0 [...] Panel - Chemistry sodium, serum 139 mmol/L 746-792 4146/12/31 potassium, serum 4.8 mmol/L 3.5-5.2 chloride, serum 106 mmol/L 98-107 carbon dioxide, venous blood 24.3 mmol/L 21.0-32.0 blood glucose 90 mg/dL 65-110 urea nitrogen, blood 16 mg/dL 7-18 creatinine, serum 1.00 mg/dL 0.60-1.30 alanine aminotransferase (SGPT), serum 41 U/L 12-78 aspartate aminotransferase (SGOT), serum 17 U/L 15-37 calcium, serum 8.6 mg/dL 8.5-10.1 bilirubin, serum, total 0.30 mg/dL 0.00-1.00 cholesterol, serum 108 mg/dL 077-086 1683/12/31 triglyceride, serum, fasting 120 mg/dL 30-200 HDL cholesterol, serum 28 mg/dL 32-96 LDL cholesterol, serum 56 mg/dL 0-130 Lab Report: HGBA1C - Chemistry hemoglobin A1C, blood, as % of total hemoglobin 5.3 % 4.3-6.0 Lab Report: LH/Adult/615, FSH/Adult/470 - Chemistry luteinizing hormone, serum 2.7 m[iU]/mL follicle stimulating hormone, serum 5.8 m[iU]/mL Lab Report: MICROALBUMIN - Chemistry albumin/creatinine ratio, urine < 30 mg/g mg/g{creat} 0-29 Lab Report: MICROALBUMIN - Lab microalbumin, urine 10 0-19 Lab Report: MonoSpot, UADIP W/MICRO, AUTO - [...] 5.5 5.0-8.5 Lab Report: UADIP W/MICRO, AUTO, [facility] [place] Chemistry RBC, urine, dipstick Negative Negative protein, total urine random Negative mg/dL Negative human chorionic gonadotropin, urine, qualitative (urine test) Negative Negative Lab Report: UADIP W/MICRO, AUTO, [facility] - Urinalysis glucose, urine, semiquantitative Negative Negative ketones, urine, by test strip Negative Negative bilirubin, urine Negative Negative urine color Yellow Colorless;Lightyellow;Straw;Yellow appearance, urine Clear Clear specific gravity, urine 1.025 1.000-1.030 pH, urine, semiquantitative 7.0 5.0-8.5 urobilinogen, urine, semiquantitative (dipstick) 0.2 Normal leukocyte esterase, urine, by dipstick Negative Negative nitrite, urine, semiquantitative Negative Negative Lab Report: Varicella-Zoater Inga IgG,IgM/62021, HEP Be Antibody/556, RUB ... - Serology rubella antibody, serum, IgG 2.88 Encounters Code Encounter Date Provider Facility CPT-56684 Level 3 Est. Patient 11:37:33 FISHER MUSSEL Vishal Hui MD [facility] CPT-02540 Level 3 Est. Patient 08:41:09 FISHER MUSSEL Vishal Hui MD [facility] CPT-15425 Level 4 Est. Patient 10:19:35 FISHER MUSSEL Vishal Hui MD [facility] CPT-30100 Level 3 Est. Patient 13:35:45 CDT Vishal Hui MD [facility] CPT-49333 Level 4 Est. Patient 10:08:37 CDT Vishal Hui MD [facility]-06369 Level 3 Est. Patient 11:22:10 CDT Vishal Hui MD [facility] CPT-86257 Level 3 Est. Patient 11:03:32 CDT Sahara Rodriguez MD [facility]-41433 Level 3 Est. Patient 09:41:35 CDT Vishal Hui MD [facility]-80563 Level 3 Est. Patient 12:00:41 CDT Neeraj Collins MD [facility]-12529 Level 3 Est. Patient 09:16:24 CDT Vishal Hui MD [facility] CPT-12611 Level 4 Est. Patient 13:59:09 CDT Neeraj Collins MD [facility]-25873 Level 3 Est. Patient 15:19:43 CDT Renzo Thornton DO [facility] CPT-54809 Level 3 Est. Patient 18:10:26 CDT Sahara Rodriguez MD [facility]-47633 Level 3 Est. Patient 14:49:50 CDT Vishal Hui MD [facility] CPT-18857 Level 4 Est. Patient 18:41:46 CDT Neeraj Collins MD [facility]-17293 Level 4 Est. Patient 09:18:38 FISHER MUSSEL Vishal Hui MD [facility]-78445 Level 3 Est. Patient 14:43:55 FISHER MUSSEL Vishal Hui MD [facility] CPT-05212 Level 3 Est. Patient 15:26:33 FISHER MUSSEL Sahara Rodriguez MD PhD [facility] CPT-70496 Level 3 Est. Patient 10:32:14 FISHER MUSSEL Vishal Hui MD [facility] CPT-65784 Level 3 Est. Patient 15:12:52 FISHER MUSSEL Vishal Hui MD [facility] CPT-35777 Level 4 Est. Patient 09:19:27 CDT Vishal Hui MD [facility] CPT-29912 Level 3 Est. Patient 15:53:00 CDT Renzo Thornton [facility] CPT-66454 Level 3 Est. Patient 15:50:30 CDT Renzo Thornton [facility] CPT-64098 Level 3 Est. Patient 16:55:24 CDT Vishal Hui MD [facility] Procedures Code Procedure Name Date Entry Date Standard Description CPT-44419 Recombivax HB Injection Suspension 5 MCG/0.5ML 08:37:50 FISHER MUSSEL CPT-70638 Immunization Single Admin 08:37:50 FISHER MUSSEL CPT-J3420 Vitamin B12 1000mcg (Cyanocobalamin) 08:32:16 FISHER MUSSEL 03/11 CPT-68335 Abx/Therapy Injection 08:32:16 FISHER MUSSEL CPT-30594 Chest 2V Frontal and Lat 11:46:38 FISHER MUSSEL CPT-74069 Venipuncture Draw Fee 09:12:45 FISHER MUSSEL CPT-J3420 Vitamin B12 1000mcg (Cyanocobalamin) 08:50:15 FISHER MUSSEL 02/08 CPT-94077 Abx/Therapy Injection 08:50:15 FISHER MUSSEL CPT-Cryo Cryotherapy 10:19:35 FISHER MUSSEL CPT-000 Give Appropriate Flu Vaccine 09:22:16 CDT CPT-J3420 Vitamin B12 1000mcg (Cyanocobalamin) 19:08:57 CDT 01/11 CPT-38767 Abx/Therapy Injection 19:08:57 CDT CPT-J3420 Vitamin B12 1000mcg (Cyanocobalamin) 08:19:08 CDT 12/11 CPT-50326 Abx/Therapy Injection 08:19:08 CDT CPT-J3420 Vitamin B12 1000mcg (Cyanocobalamin) 14:48:00 CDT 11/09 CPT-32013 Abx/Therapy Injection 14:47:59 CDT CPT-J3420 Vitamin B12 1000mcg (Cyanocobalamin) 08:34:04 CDT 10/09 CPT-16490 Abx/Therapy Injection 08:34:04 CDT CPT-J3420 Vitamin B12 1000mcg (Cyanocobalamin) 09:18:52 CDT 09/11 CPT-13886 Abx/Therapy Injection 09:18:52 CDT CPT-J3420 Vitamin B12 1000mcg (Cyanocobalamin) 08:35:44 CDT 09/04 CPT-24758 Abx/Therapy Injection 08:35:44 CDT CPT-34651 Immunization Single Admin 11:07:16 CDT CPT-80381 Hepatitis B adult IM 11:07:16 CDT CPT-J3420 Vitamin B12 1000mcg (Cyanocobalamin) 11:00:49 CDT 08/28 CPT-J1040 Depo Medrol 80 mg (Methyl Prednisolone Acetate) 11:00: 49 CDT CPT-42642 Abx/Therapy Injection 11:00:49 CDT CPT-J1040 Depo Medrol 80 mg (Methyl Prednisolone Acetate) 09:16: 23 CDT CPT-J3420 Vitamin B12 1000mcg (Cyanocobalamin) 08:27:05 CDT 08/20 CPT-20830 Abx/Therapy Injection 08:27:05 CDT CPT-36963 Recombivax HB Injection Suspension 5 MCG/0.5ML 10:00:41 CDT CPT-07061 Administration single or combination vaccine inc oral 10 :00:41 CDT CPT-22541 Sono transvag pelvis non OB uterus ovaries cervix 16:36: 57 CDT CPT-30856 LS spine comp w obliq 09:50:55 FISHER MUSSEL CPT-20559 Abd compl w upright 09:50:55 FISHER MUSSEL CPT-J1100 Decadron 4mg (Dexamethasone) 15:51:24 FISHER MUSSEL CPT-J1030 Depo Medrol 40 mg (Methyl Prednisolone Acetate) 15:51: 24 FISHER MUSSEL CPT-20671 Abx/Therapy Injection 15:51:24 FISHER MUSSEL CPT-J1100 Decadron 4mg (Dexamethasone) 15:26:33 FISHER MUSSEL CPT-J1030 Depo Medrol 40 mg (Methyl Prednisolone Acetate) 15:26: 33 FISHER MUSSEL CPT-66057 Sono retroperitoneal complete kidneys and bladder 17:15: 30 CDT CPT-45136 Abd compl w upright 16:09:25 CDT CPT-J1100 Decadron 8mg (Dexamethasone) 17:07:57 CDT CPT-50012 Abx/Therapy Injection 17:07:57 CDT CPT-J1100 Decadron 8mg (Dexamethasone) 16:55:24 CDT CPT-46932 Chest 2V Frontal and Lat 16:32:44 CDT
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
--- OUTSIDE RECORDS SUMMARY | 2016-11-04 11:42 | XMS REPORT | Clinical Summary ---
Author Author Admin, Dereck Organization [facility] j-Grab Address Unknown Phone Unavailable Allergies, Adverse Reactions, [...] blood chemistry Boils, recurrent 680.9 Resolved Vishal Hiu MD Carbuncle and furuncle of unspecified site [...] sites Morbid obesity 278.01 Active Juliet Kimbrough TIN FLIPPER Morbid obesity 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 Active Juliet Kimbrough TIN FLIPPER Dependence on other enabling machines and devices Gait unsteady 781.2 Resolved Albert Caldera MD Abnormality of gait Lipoma 214.9 Resolved Albert Caldera MD Lipoma, unspecified site Abdominal pain, RUQ 789.01 Resolved Albert Caldera MD Abdominal pain, right upper quadrant Chest pain, acute 786.50 Resolved Albert Caldera MD Unspecified chest pain Localized adiposity 278.1 Active Albert Caldera MD Localized adiposity Anxiety Disorder ICD-300.00 Inactive Vishal Hui MD Pneumonia, organism unspecified ICD-486 Inactive Vishal Hui MD Flank pain, right ICD-789.09 Inactive Vishal Hui MD G E R D ICD-530.81 Inactive Vishal Hui MD Smoker/tobacco use disorder-smoking cessation discussed ICD-305.1 Inactive Vishal Hui MD Abdominal pain ICD-789.00 Inactive Vishal Hui MD Cellulitis ICD-682.9 Inactive Vsihal Hui MD Pelvic pain ICD-625.9 Inactive iVshal Hui MD Abscess, skin ICD-682.9 Inactive Vishal [...] Generic Name NDC Status Provider Patient Instruction MIRALAX ORAL POWD 17GMS DAILY IN WATER POLYETHYLENE GLYCOL 3350 [id number] Active Vishal Hui MD Active METOPROLOL TARTRATE 25 MG ORAL TABS 1/2 tablet twice daily for heart rate and blood pressure METOPROLOL TARTRATE 18691785391 Active Renzo Thornton DO Active VALIUM 5 MG TAB Take 1-2 tablets daily DIAZEPAM 40875959066 Active Ahmet Carbajal MD Active VIIBRYD 10 MG ORAL TABS Take 1 tablet once a day VILAZODONE HCL 93794930492 Active Ahmet Carbajal MD Active DICLOFENAC POTASSIUM TABS Take 1 tablet twice a day (pt. is not sure of the dose.) DICLOFENAC POTASSIUM TABS 62103069642 Active Ahmet Carbajal MD Active MIRALAX PACK 1 po qd PRN Constipation POLYETHYLENE GLYCOL 3350 59897875213 No Longer Active Ahmet Carbajal MD Active MINIPRESS 2 MG CAPS 4 cap po at night PRAZOSIN HCL 50680350611 No Longer Active Ahmet Carbajal MD Active PIROXICAM 20 MG CAPS 1 cap po qd PRN Pain PIROXICAM 38121438460 No Longer Active Ahmet Carbajal MD Active TRAMADOL HCL 50 MG TABS 1-2 po TID PRN Pain TRAMADOL HCL 31557853879 No Longer Active Ahmet Carbajal MD Active METOPROLOL TARTRATE 50 MG TAB 1 po bid METOPROLOL TARTRATE 14131851111 No Longer Active Ahmet Carbajal MD Active ABILIFY 15 MG ORAL TABS 1 tab daily ARIPIPRAZOLE 47173862808 No Longer Active Ahmet Carbajal MD Active PROZAC 20 MG ORAL CAPS 1 tab daily FLUOXETINE HCL 55782700662 No Longer Active Ahmet Carbajal MD Active AMBIEN 5 MG ORAL TABS 1 tab at bedtime ZOLPIDEM TARTRATE 11231071839 No Longer Active Ahmet Carabjal MD Active PREDNISONE 20 MG TAB 2 tabs daily for 4 days, 1 tab daily for 4 days, 1/2 tab daily for 4 days PREDNISONE 17110252102 No Longer Active Ahmet Carbajal MD Active KEFLEX 500 MG CAP 1 po TID x 10 days CEPHALEXIN 00133907206 No Longer Active Vishal Hui MD Active ABILIFY MAINTENA 400 MG IM SUSR Injection once per month ARIPIPRAZOLE 75197261813 Active Juliet TIN FLIPPER Active IMITREX 50 MG ORAL TABS 1/2 tab every 6 hours prn SUMATRIPTAN SUCCINATE 43941177228 Active Jillina Frazell TIN FLIPPER Active TOPAMAX 50 MG ORAL TABS 1 tab twice daily TOPIRAMATE 97105734753 Active Vishal Hui MD Active SAPHRIS 5 MG SUBL 1 po bid ASENAPINE MALEATE 20727331875 No Longer Active Jillina Mauricio NORIEGA Active LATUDA 80 MG TABS Take one by mouth daily LURASIDONE HCL 34202552199 No Longer Active Pacollina Mauricio NORIEGA Active AMLODIPINE BESYLATE 5 MG TABS 1 tablet by mouth daily AMLODIPINE BESYLATE 40899972488 No Longer Active Pacollina Mauricio NORIEGA Active AMITRIPTYLINE HCL 100 MG TAB one at hs AMITRIPTYLINE HCL 65788268682 No Longer Active Vishal Hui MD Active TRAZODONE HCL 100 MG TAB take 1 at bedtime TRAZODONE HCL 30251924952 No Longer Active Vishal Hui MD Active VYVANSE 40 MG CAPS 1 daily, LISDEXAMFETAMINE DIMESYLATE 68775751493 No Longer Active Vishal Hui MD Active IBUPROFEN 600 MG TAB 1 po TID PRN IBUPROFEN 02401666395 No Longer Active Vishal Hui MD Active PROZAC 20 MG CAP Take one by mouth daily FLUOXETINE HCL 29905609310 No Longer Active Vishal Hui MD Active ZOFRAN 4 MG TABS 1 po q6hr PRN Nausea ONDANSETRON HCL Active Vishal Hui MD Active BACTRIM DS 800-160 MG TABS 1 pill by mouth twice daily SULFAMETHOXAZOLE-TRIMETHOPRIM 26716936343 No Longer Active Sahara Rodriguez MD PhD Active DIFLUCAN 150 MG TAB 1 tablet by mouth daily FLUCONAZOLE 52088937604 No Longer Active Vishal Hui MD Active TIZANIDINE HCL 4 MG TABS 1 po q6hr PRN Muscle Spasm/Back Pain TIZANIDINE HCL 42530458123 Active Vishal Hui MD Active CLINDAMYCIN HCL 150 MG CAPS 1 four times a day CLINDAMYCIN HCL 13873047089 No Longer Active Neeraj Collins MD Active KEFLEX 500 MG ORAL CAPS 1 cap QID by mouth CEPHALEXIN 06611771907 No Longer Active Neeraj Collins MD Active DIFLUCAN 150 MG TABS 1 pill every other day x 2 doses FLUCONAZOLE 23513453626 No Longer Active Sahara Rodriguez MD PhD Active MELATONIN 3 MG CAPS 2 po q hs MELATONIN 16995828748 No Longer Active Sahara Rodriguez MD PhD Active MULTIVITAMINS CAPS Take one by mouth daily MULTIPLE VITAMIN 88054231382 No Longer Active Sahara Rodriguez MD PhD Active BACTRIM DS 800-160 MG TAB 1 tab by mouth twice daily TRIMETHOPRIM-SULFAMETHOXAZOLE 46279563647 No Longer Active Sahara Rodriguez MD PhD Active [facility] PROBIOTIC ORAL CHEW 2 daily po PROBIOTIC PRODUCT 42678173434 No Longer Active Sahara Rodriguez MD PhD Active BACTRIM DS 800-160 MG TABS 1 po BID x 7 days SULFAMETHOXAZOLE-TRIMETHOPRIM 95467105552 No Longer Active Vishal Hui MD Active CHANTIX STARTING MONTH EARNEST 0.5 MG X 11 & 1 MG X 42 TABS 0.5mg daily for 3 days , then 0.5mg BID for 4 days, then 1mg BID VARENICLINE TARTRATE 19791899662 No Longer Active TAMARA Gray Active VERAPAMIL HCL CR 120 MG TAB CR 1 po bid VERAPAMIL HCL 19052738557 No Longer Active Vishal Hui MD Active METOPROLOL SUCCINATE 50 MG TB24 1 tablet by mouth daily METOPROLOL SUCCINATE 70370266680 No Longer Active Vishal Hui MD Active SAPHRIS 10 MG SUBL 1 tab po bid ASENAPINE MALEATE 21571467641 No Longer Active Vishal Hui MD Active LISINOPRIL 20 MG TABS 1 tab po qd LISINOPRIL 28277657703 No Longer Active Vishal Hui MD Active BENADRYL 25 MG CAP 2 po tid prn anxiety DIPHENHYDRAMINE HCL 95200507950 Active Vishal Hui MD Active LATUDA 20 MG TABS Take one by mouth daily LURASIDONE HCL 68419410732 No Longer Active Vishal Hui MD Active TRAZODONE HCL 50 MG TABS 1/2 tab po qd prn for anxiety TRAZODONE HCL 43132612842 No Longer Active Vishal Hui MD Active OMEPRAZOLE 20 MG TBEC 1 po q a.m. 30min prior to first food intake OMEPRAZOLE 67622805222 Active Vishal Hui MD Active RANITIDINE HCL 150 MG CAPS 1 twice a day RANITIDINE HCL 86664856941 Active Vishal Hui MD Active LINZESS 290 MCG CAPS Take one by mouth daily LINACLOTIDE 37670479104 No Longer Active Vishal Hui MD Active SAPHRIS 5 MG SUBL 1 tab po qd ASENAPINE MALEATE 19713540846 No Longer Active Vishal Hui MD Active ZALEPLON 10 MG CAPS 1 cap po every other night ZALEPLON 88879705625 No Longer Active Vishal Hui MD Active LYRICA 50 MG CAPS 1 tab po TID PREGABALIN 00680523138 No Longer Active Vishal Hui MD Active LORATADINE 10 MG TABS 1 tab po qd LORATADINE 48149832285 No Longer Active Vishal Hui MD Active VERAPAMIL HCL ER 180 MG CR-TABS 1 tab po bid VERAPAMIL HCL 87278637571 No Longer Active Vishal Hui MD Active MIRALAX POWD 1 capfull once daily POLYETHYLENE GLYCOL 3350 98558183883 No Longer Active Vishal Hui MD Active PREDNISONE 20 MG TABS 1 tab po qd PREDNISONE 75341070295 No Longer Active Renzo Thornton DO Active LEVOFLOXACIN 500 MG TABS 1 tab po qd LEVOFLOXACIN 04122085911 No Longer Active Renzo Thornton DO Active BUSPIRONE HCL 15 MG TABS 1 tab po TID BUSPIRONE HCL 20353437999 No Longer Active Renzo Thornton DO Active BENZTROPINE MESYLATE 1 MG TABS 1 tab po qd BENZTROPINE MESYLATE 72447993033 No Longer Active Renzo Thornton DO Active ATENOLOL 25 MG TABS 1 tab po qd ATENOLOL 02712818344 No Longer Active Renzo Thornton DO Active ESCITALOPRAM OXALATE 20 MG TABS 1 tab po qd ESCITALOPRAM OXALATE 36481068378 No Longer Active Renzo Thornton DO Active ADVAIR DISKUS 250-50 MCG/DOSE AEPB 1 puff BID FLUTICASONE-SALMETEROL 58854367230 No Longer Active Renzo Thornton DO Active PREDNISONE 20 MG TAB 2 tabs daily for 3 days, 1 tab daily for 3 days, 1/2 tab daily for 2 days PREDNISONE 83437522434 No Longer Active Vishal Hui MD Active CEFDINIR 300 MG CAPS by mouth twice a day CEFDINIR 45564240924 No Longer Active Vishal Hui MD Active LANSOPRAZOLE 30 MG CPDR 1 cap po qd LANSOPRAZOLE 48712417122 No Longer Active Vishla Hui MD Active BACLOFEN 20 MG TABS 1 tab po tid BACLOFEN 09891516145 No Longer Active Vishal Hui MD Active ADVAIR DISKUS 250-50 MCG/DOSE AEPB 1 puff BID ADVAIR DISKUS 250-50 MCG/DOSE AEPB FLUTICASONE-SALMETEROL Inactive ESCITALOPRAM OXALATE 20 MG TABS 1 tab po qd ESCITALOPRAM OXALATE 20 MG TABS 031282 ESCITALOPRAM OXALATE Inactive ATENOLOL 25 MG TABS 1 tab po qd ATENOLOL 25 MG TABS 901892 ATENOLOL Inactive BENZTROPINE MESYLATE 1 MG TABS 1 tab po qd BENZTROPINE MESYLATE 1 MG TABS 840007 BENZTROPINE MESYLATE Inactive BUSPIRONE HCL 15 MG TABS 1 tab po TID BUSPIRONE HCL 15 MG TABS 314846 BUSPIRONE HCL Inactive LEVOFLOXACIN 500 MG TABS 1 tab po qd LEVOFLOXACIN 500 MG TABS 918058 LEVOFLOXACIN Inactive PREDNISONE 20 MG TABS 1 tab po qd PREDNISONE 20 MG TABS 192677 PREDNISONE Inactive MIRALAX POWD 1 capfull once daily MIRALAX POWD 526761 POLYETHYLENE GLYCOL 3350 Inactive VERAPAMIL HCL ER 180 MG CR-TABS 1 tab po bid VERAPAMIL HCL ER 180 MG CR-TABS VERAPAMIL HCL Inactive LORATADINE 10 MG TABS 1 tab po qd LORATADINE 10 MG TABS 316194 LORATADINE Inactive LYRICA 50 MG CAPS 1 tab po TID LYRICA 50 MG CAPS PREGABALIN Inactive ZALEPLON 10 MG CAPS 1 cap po every other night ZALEPLON 10 MG CAPS 794413 ZALEPLON Inactive SAPHRIS 5 MG SUBL 1 tab po qd SAPHRIS 5 MG SUBL ASENAPINE MALEATE Inactive TRAZODONE HCL 50 MG TABS 1/2 tab po qd prn for anxiety TRAZODONE HCL 50 MG TABS 239643 TRAZODONE HCL Inactive LATUDA 20 MG TABS Take one by mouth daily LATUDA 20 MG TABS LURASIDONE HCL Inactive LISINOPRIL 20 MG TABS 1 tab po qd LISINOPRIL 20 MG TABS 349013 LISINOPRIL Inactive SAPHRIS 10 MG SUBL 1 [...] twice daily BACTRIM DS 800-160 MG TAB 547562 TRIMETHOPRIM-SULFAMETHOXAZOLE Inactive MULTIVITAMINS CAPS Take one by mouth daily MULTIVITAMINS CAPS MULTIPLE VITAMIN Inactive MELATONIN 3 MG CAPS 2 po q hs MELATONIN 3 MG CAPS 006282 MELATONIN Inactive KEFLEX 500 MG ORAL CAPS 1 cap QID by mouth KEFLEX 500 MG ORAL CAPS 982087 CEPHALEXIN Inactive CLINDAMYCIN HCL 150 MG CAPS 1 four times a day CLINDAMYCIN HCL 150 MG CAPS 19740326 CLINDAMYCIN HCL Inactive DIFLUCAN 150 MG TAB 1 tablet by mouth daily DIFLUCAN 150 MG TAB 841988 FLUCONAZOLE Inactive PROZAC 20 MG CAP Take one by mouth daily PROZAC 20 MG CAP 729852 FLUOXETINE HCL Inactive IBUPROFEN 600 MG TAB 1 po TID PRN IBUPROFEN 600 MG TAB 616258 IBUPROFEN Inactive VYVANSE 40 MG CAPS 1 daily, VYVANSE 40 MG CAPS LISDEXAMFETAMINE DIMESYLATE Inactive TRAZODONE HCL 100 MG TAB take 1 at bedtime TRAZODONE HCL 100 MG TAB 049105 TRAZODONE HCL Inactive AMITRIPTYLINE HCL 100 MG TAB one at hs AMITRIPTYLINE HCL 100 MG TAB 881232 AMITRIPTYLINE HCL Inactive AMLODIPINE BESYLATE 5 MG TABS 1 tablet by mouth daily AMLODIPINE BESYLATE 5 MG TABS 687953 AMLODIPINE BESYLATE Inactive LATUDA 80 MG TABS Take one by mouth daily LATUDA 80 MG TABS LURASIDONE HCL Inactive SAPHRIS 5 MG SUBL 1 po bid SAPHRIS 5 MG SUBL ASENAPINE MALEATE Inactive PREDNISONE 20 MG TAB 2 tabs daily for 4 days, 1 tab daily for 4 days, 1/2 tab daily for 4 days PREDNISONE 20 MG TAB 649091 PREDNISONE Inactive AMBIEN 5 MG ORAL TABS 1 tab at bedtime AMBIEN 5 MG ORAL TABS 897312 ZOLPIDEM TARTRATE Inactive PROZAC 20 MG ORAL CAPS 1 tab daily PROZAC 20 MG ORAL CAPS 220678 FLUOXETINE HCL Inactive ABILIFY 15 MG ORAL TABS 1 tab daily ABILIFY 15 MG ORAL TABS 878199 ARIPIPRAZOLE Inactive METOPROLOL TARTRATE 50 MG TAB 1 po bid METOPROLOL TARTRATE 50 MG TAB 180133 METOPROLOL TARTRATE Inactive TRAMADOL HCL 50 MG TABS 1-2 po TID PRN Pain TRAMADOL HCL 50 MG TABS 964330 TRAMADOL HCL Inactive PIROXICAM 20 MG CAPS 1 cap po qd PRN Pain PIROXICAM 20 MG CAPS 232474 PIROXICAM Inactive MINIPRESS 2 MG CAPS 4 cap po at night MINIPRESS 2 MG CAPS 595449 PRAZOSIN HCL Inactive MIRALAX PACK 1 po qd PRN Constipation MIRALAX PACK 346132 POLYETHYLENE GLYCOL 3350 Inactive CEFDINIR 300 MG CAPS by mouth twice a day CEFDINIR 300 MG CAPS 215640 CEFDINIR Inactive PREDNISONE 20 MG TAB 2 tabs daily for 3 days, 1 tab daily for 3 days, 1/2 tab daily for 2 days PREDNISONE 20 MG TAB 396227 PREDNISONE Inactive BACTRIM DS 800-160 MG TABS 1 po BID x 7 days BACTRIM DS 800-160 MG TABS 826393 SULFAMETHOXAZOLE-TRIMETHOPRIM Inactive DIFLUCAN 150 MG TABS 1 pill every other day x 2 doses DIFLUCAN 150 MG TABS 720841 FLUCONAZOLE Inactive BACTRIM DS 800-160 MG TABS 1 pill by mouth twice daily BACTRIM DS 800-160 MG TABS 040371 SULFAMETHOXAZOLE-TRIMETHOPRIM Inactive KEFLEX 500 MG CAP 1 po TID x 10 days KEFLEX 500 MG CAP 925492 CEPHALEXIN Inactive Advance Directives Directive Description Start [...] E&M - 3141-9 275 [lb_av] Weight Measured Diagnostic Results Date Name [...] % 11.6-14.8 platelet count 394 10^3/MM^3 10*3/mm3 449-186 6024/01/11 leukocyte count, blood 13.8 10^3/MM^3 10*3/mm3 4.6-10.2 [...] Panel - Chemistry sodium, serum 139 mmol/L 960-206 6826/12/03 carbon dioxide, venous blood 28.5 mmol/L 21.0-32.0 [...] 5.5 % 4.3-6.0 cholesterol, serum 159 mg/dL 672-334 6928/12/03 triglyceride, serum, fasting 118 mg/dL 30-200 HDL [...] Panel - Chemistry sodium, serum 139 mmol/L 086-058 9461/12/22 carbon dioxide, venous blood 26.8 mmol/L 21.0-32.0 potassium, serum 4.2 mmol/L 3.5-5.2 chloride, serum 103 mmol/L 98-107 blood glucose 115 mg/dL 65-110 urea nitrogen, blood 20 mg/dL 7-18 creatinine, serum 0.90 mg/dL 0.55-1.30 alanine aminotransferase (SGPT), serum 38 U/L 12-78 aspartate aminotransferase (SGOT), serum 19 U/L 15-37 calcium, serum 8.6 mg/dL 8.5-10.1 bilirubin, serum, total 0.30 mg/dL 0.00-1.00 sodium, serum 139 mmol/L 726-498 5417/01/11 carbon dioxide, venous blood 26.6 mmol/L 21.0-32.0 potassium, serum 4.1 mmol/L 3.5-5.2 chloride, serum 100 mmol/L 98-107 blood glucose 86 mg/dL 65-110 urea nitrogen, blood 16 mg/dL 7-18 creatinine, serum 1.00 mg/dL 0.55-1.30 alanine aminotransferase (SGPT), serum 48 U/L -78 aspartate aminotransferase (SGOT), serum 17 U/L 15-37 calcium, serum 9.1 mg/dL 8.5-10.1 bilirubin, serum, total 0.40 mg/dL 0.00-1.00 sodium, serum 142 mmol/L 221-120 4348/06/08 carbon dioxide, venous blood 27.6 mmol/L 21.0-32.0 [...] Rate - Chemistry sodium, serum 139 mmol/L 212-700 0715/12/11 carbon dioxide, venous blood 25.4 mmol/L 21.0-32.0 [...] 5.0-8.5 Encounters Code Encounter Date Provider Facility CPT-56998 Level 3 New Patient 16:53:37 CDT Albert Caldera MD [facility] CPT-81531 Level 3 Est. Patient 11:25:49 CDT Renzo Thornton DO [facility] CPT-61763 Level 3 Est. Patient 15:22:01 CDT Ahmet Carbajal MD [facility] CPT-27927 Level 4 Est. Patient 09:00:51 DOCUMENT MANAGEMENT ANALYST Vishal Hui MD [facility] CPT-54658 Level 3 Est. Patient 11:37:33 DOCUMENT MANAGEMENT ANALYST Vishal Hui MD [facility] CPT-80822 Level 3 Est. Patient 08:41:09 DOCUMENT MANAGEMENT ANALYST Vishal Hui MD [facility] CPT-75261 Level 4 Est. Patient 10:19:35 DOCUMENT MANAGEMENT ANALYST Vishal Hui MD [facility] CPT-94858 Level 3 Est. Patient 13:35:45 CDT Vishal Hui MD [facility] CPT-59267 Level 4 Est. Patient 10:08:37 CDT Vishal Hui MD [facility] CPT-06567 Level 3 Est. Patient 11:22:10 CDT Vishal Hui MD [facility] CPT-27174 Level 3 Est. Patient 11:03:32 CDT Sahara Rodriguez MD [facility]-83622 Level 3 Est. Patient 09:41:35 CDT Vishal Hui MD [facility] CPT-59362 Level 3 Est. Patient 12:00:41 CDT Neeraj Collins MD [facility] CPT-44442 Level 3 Est. Patient 09:16:24 CDT Vishal Hui MD [facility] CPT-72214 Level 4 Est. Patient 13:59:09 CDT Neeraj Collins MD [facility]-92257 Level 3 Est. Patient 15:19:43 CDT Renzo Thornton DO [facility] CPT-28926 Level 3 Est. Patient 18:10:26 CDT Sahara Rodriguez MD [facility]-93668 Level 3 Est. Patient 14:49:50 CDT Vishal Hui MD [facility] CPT-36110 Level 4 Est. Patient 18:41:46 CDT Neeraj Collins MD [facility]-83017 Level 4 Est. Patient 09:18:38 DOCUMENT MANAGEMENT ANALYST Vishal Hui MD [facility] CPT-69261 Level 3 Est. Patient 14:43:55 DOCUMENT MANAGEMENT ANALYST Vishal Hui MD [facility] CPT-94056 Level 3 Est. Patient 15:26:33 DOCUMENT MANAGEMENT ANALYST Sahara Rodriguez MD PhD [facility] CPT-90041 Level 3 Est. Patient 10:32:14 DOCUMENT MANAGEMENT ANALYST Vishal Hui MD [facility] CPT-22896 Level 3 Est. Patient 15:12:52 DOCUMENT MANAGEMENT ANALYST Vishal Hui MD [facility] CPT-96895 Level 4 Est. Patient 09:19:27 CDT Vishal Hui MD [facility] CPT-71678 Level 3 Est. Patient 15:53:00 CDT Renzo Thornton [facility] CPT-53920 Level 3 Est. Patient 15:50:30 CDT Renzo Thornton [facility] CPT-66608 Level 3 Est. Patient 16:55:24 CDT Vishal Hui MD [facility] Procedures Code Procedure Name Date Entry Date Standard Description CPT-29221 EKG Trac and Interp - XRAY USE ONLY 11:31:43 CDT 08/26 CPT-J3420 Vitamin B12 1000mcg (Cyanocobalamin) 08:10:26 DOCUMENT MANAGEMENT ANALYST 04/12 CPT-73523 Abx/Therapy Injection 08:10:26 DOCUMENT MANAGEMENT ANALYST CPT-G0438 Initial Annual Wellness Exam 19:01:01 DOCUMENT MANAGEMENT ANALYST CPT-J3420 Vitamin B12 1000mcg (Cyanocobalamin) 16:57:46 CDT 08/14 CPT-75244 Recombivax HB Injection Suspension 5 MCG/0.5ML 08:37:50 DOCUMENT MANAGEMENT ANALYST CPT-68189 Immunization Single Admin 08:37:50 DOCUMENT MANAGEMENT ANALYST CPT-J3420 Vitamin B12 1000mcg (Cyanocobalamin) 08:32:16 DOCUMENT MANAGEMENT ANALYST 03/11 CPT-23252 Abx/Therapy Injection 08:32:16 DOCUMENT MANAGEMENT ANALYST CPT-08609 Chest 2V Frontal and Lat 11:46:38 DOCUMENT MANAGEMENT ANALYST CPT-72079 Venipuncture Draw Fee 09:12:45 DOCUMENT MANAGEMENT ANALYST CPT-J3420 Vitamin B12 1000mcg (Cyanocobalamin) 08:50:15 DOCUMENT MANAGEMENT ANALYST 02/08 CPT-43733 Abx/Therapy Injection 08:50:15 DOCUMENT MANAGEMENT ANALYST CPT-Cryo Cryotherapy 10:19:35 DOCUMENT MANAGEMENT ANALYST CPT-000 Give Appropriate Flu Vaccine 09:22:16 CDT CPT-J3420 Vitamin B12 1000mcg (Cyanocobalamin) 19:08:57 CDT 01/11 CPT-30954 Abx/Therapy Injection 19:08:57 CDT CPT-J3420 Vitamin B12 1000mcg (Cyanocobalamin) 08:19:08 CDT 12/11 CPT-94056 Abx/Therapy Injection 08:19:08 CDT CPT-J3420 Vitamin B12 1000mcg (Cyanocobalamin) 14:48:00 CDT 11/09 CPT-20251 Abx/Therapy Injection 14:47:59 CDT CPT-J3420 Vitamin B12 1000mcg (Cyanocobalamin) 08:34:04 CDT 10/09 CPT-50227 Abx/Therapy Injection 08:34:04 CDT CPT-J3420 Vitamin B12 1000mcg (Cyanocobalamin) 09:18:52 CDT 09/11 CPT-19653 Abx/Therapy Injection 09:18:52 CDT CPT-J3420 Vitamin B12 1000mcg (Cyanocobalamin) 08:35:44 CDT 09/04 CPT-74647 Abx/Therapy Injection 08:35:44 CDT CPT-12535 Immunization Single Admin 11:07:16 CDT CPT-30238 Hepatitis B adult IM 11:07:16 CDT CPT-J3420 Vitamin B12 1000mcg (Cyanocobalamin) 11:00:49 CDT 08/28 CPT-J1040 Depo Medrol 80 mg (Methyl Prednisolone Acetate) 11:00: 49 CDT CPT-08997 Abx/Therapy Injection 11:00:49 CDT CPT-J1040 Depo Medrol 80 mg (Methyl Prednisolone Acetate) 09:16: 23 CDT CPT-J3420 Vitamin B12 1000mcg (Cyanocobalamin) 08:27:05 CDT 08/20 CPT-35227 Abx/Therapy Injection 08:27:05 CDT CPT-24896 Recombivax HB Injection Suspension 5 MCG/0.5ML 10:00:41 CDT CPT-00431 Administration single or combination vaccine inc oral 10 :00:41 CDT CPT-18696 Sono transvag pelvis non OB uterus ovaries cervix 16:36: 57 CDT CPT-08925 LS spine comp w obliq 09:50:55 DOCUMENT MANAGEMENT ANALYST CPT-79496 Abd compl w upright 09:50:55 DOCUMENT MANAGEMENT ANALYST CPT-J1100 Decadron 4mg (Dexamethasone) 15:51:24 DOCUMENT MANAGEMENT ANALYST CPT-J1030 Depo Medrol 40 mg (Methyl Prednisolone Acetate) 15:51: 24 DOCUMENT MANAGEMENT ANALYST CPT-65232 Abx/Therapy Injection 15:51:24 DOCUMENT MANAGEMENT ANALYST CPT-J1100 Decadron 4mg (Dexamethasone) 15:26:33 DOCUMENT MANAGEMENT ANALYST CPT-J1030 Depo Medrol 40 mg (Methyl Prednisolone Acetate) 15:26: 33 DOCUMENT MANAGEMENT ANALYST CPT-21694 Sono retroperitoneal complete kidneys and bladder 17:15: 30 CDT CPT-67336 Abd compl w upright 16:09:25 CDT CPT-J1100 Decadron 8mg (Dexamethasone) 17:07:57 CDT CPT-17477 Abx/Therapy Injection 17:07:57 CDT CPT-J1100 Decadron 8mg (Dexamethasone) 16:55:24 CDT CPT-99237 Chest 2V Frontal and Lat 16:32:44 CDT
--- OUTSIDE RECORDS SUMMARY | 2016-11-04 11:44 | XMS REPORT | Clinical Summary ---
Author Author Admin, Dereck Organization [facility] [employer] 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 Active Juliet Kimbrough [employer] FILLER Dependence on other enabling machines and devices [...] Shortness of breath 786.05 Active Fabiola Johnson [employer] FILLER Shortness of breath Nocturnal hypoxia 799.02 Active Fabiola Johnson [employer] FILLER Hypoxemia Neck pain 723.1 Active 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 [employer] FILLER Cervicalgia Vaginal discharge 623.5 Active Neeraj Collins MD Leukorrhea, not specified as infective Abdominal pain, right lower quadrant 789.03 Active Neeraj Collins MD Abdominal pain, right lower quadrant Calf pain, left 729.5 Active Vishal Hui MD Pain in limb Asthma, acute 493.92 Active Ahmet Carbajal MD Asthma, unspecified with (acute) exacerbation Anxiety Disorder ICD-300.00 Inactive Vishal uHi MD Pneumonia, organism unspecified ICD-486 Inactive Vishal Hui MD Flank pain, right ICD-789.09 Inactive Vishal Hui MD G E R D ICD-530.81 Inactive Vishal Hui MD Smoker/tobacco use disorder-smoking cessation discussed ICD-305.1 Inactive Vishal Hui MD Abdominal pain ICD-789.00 Inactive Vishal Hui MD Cellulitis ICD-682.9 Inactive Vishal Hui MD Pelvic pain ICD-625.9 Jim Hui MD Abscess, skin ICD-682.9 Inactive Vishal Hui MD Physical examination ICD-V70.0 Inactive Vishal Hui MD Vaginitis ICD-616.10 Jim Hui MD 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 Inactive Vishal [...] Jim Caldera MD Elevated blood glucose ICD-790.29 Inactive Vishal Hui MD Gait unsteady ICD-781.2 Inactive Albert Caldera MD Lipoma ICD-214.9 Inactive Albert Caldera MD Abdominal pain, RUQ ICD-789.01 Inactive Albert Caldera MD Chest pain, acute ICD-786.50 Inactive Albert Caldera MD Medication List Medication Instructions Start Date Stop Date Generic Name NDC Status Provider Patient Instruction CHANTIX STARTING MONTH EARNEST 0.5 MG X 11 & 1 MG X 42 TABS take as directed 2015 VARENICLINE TARTRATE 99989027298 Active Ahmet Carbajal MD Active CHANTIX 1 MG TABS 1 twice a day to help quit smoking VARENICLINE TARTRATE 54533309299 Active Ahmet Carbajal MD Active HYDROCODONE-ACETAMINOPHEN 5-325 MG TABS 1 to 2 four times a day as needed for pain use until can be seen by specialist HYDROCODONE- ACETAMINOPHEN 63726155452 No Longer Active Vishal Hui MD Active PROAIR HFA 108 (90 BASE) MCG/ACT AERS 2 puffs four times a day as needed 2015 ALBUTEROL SULFATE 99442740235 No Longer Active Vishal Hui MD Active PREDNISONE 20 MG TABS 2 daily for 5 days then 1 daily for 5 days PREDNISONE 88130474624 No Longer Active Vishal Hui MD Active ZITHROMAX Z-EARNEST 250 MG TABS 2 today and then 1 daily for 4 days AZITHROMYCIN 65812988239 No Longer Active Vishal Hui MD Active DICLOFENAC SODIUM 50 MG TBEC 1 tablet by mouth four times daily PRN Pain 2015 DICLOFENAC SODIUM 23131894706 Active Vishal Hui MD Active DICLOFENAC POTASSIUM TABS Take 1 tablet twice a day (pt. is not sure of the dose.) DICLOFENAC POTASSIUM TABS 99726437428 No Longer Active Vishal Hui MD Active VERAPAMIL HCL ER 120 MG ORAL CR-TABS Take 1 tablet by mouth twice a day. VERAPAMIL HCL 90399615112 Active Vishal Hui MD Active FLAGYL 500 MG TAB 1 tablet by mouth bid METRONIDAZOLE 46221687624 No Longer Active Vishal Hui MD Active ABILIFY MAINTENA 400 MG IM SUSR 400mg injection every 28 days ARIPIPRAZOLE 79079940539 Active Silvia Ervinum BUDGET DIRECTOR Active FLUTICASONE PROPIONATE 50 MCG/ACT SUSP 2 sprays each nostril daily before bed. FLUTICASONE PROPIONATE 35378824060 Active Fabiola Johnson APRN Active ADZENYS XR-ODT 6.3 MG ORAL TBED 1 tab po daily for ADHD AMPHETAMINE 93105775630 Active Fabiola Johnson APRN Active BENADRYL 25 MG CAP 4 po at bedtime for insomnia DIPHENHYDRAMINE HCL 01308872766 Active Fabiola Johnson APRN Active KLONOPIN 1 MG ORAL TABS 1 tab po TID CLONAZEPAM 79161656631 Active Fabiola Johnson APRN Active VALIUM 5 MG TAB Take 1-2 tablets daily DIAZEPAM 38080779956 No Longer Active Fabiola Johnson APRN Active METOPROLOL TARTRATE 25 MG ORAL TABS 1/2 tablet twice daily for heart rate and blood pressure METOPROLOL TARTRATE 65751655396 No Longer Active Fabiola Johnson APRN Active MIRALAX ORAL POWD 17GMS DAILY IN WATER POLYETHYLENE GLYCOL 3350 92172808429 Active Vishal Hui MD Active VIIBRYD 10 MG ORAL TABS Take 1 tablet once a day VILAZODONE HCL 62279518215 Active Ahmet Carbajal MD Active MIRALAX PACK 1 po qd PRN Constipation POLYETHYLENE GLYCOL 3350 39167129657 No Longer Active Ahmet Carbajal MD Active MINIPRESS 2 MG CAPS 4 cap po at night PRAZOSIN HCL 28544041000 No Longer Active Ahmet Carbajal MD Active PIROXICAM 20 MG CAPS 1 cap po qd PRN Pain PIROXICAM 32191080084 No Longer Active Ahmet Carbajal MD Active TRAMADOL HCL 50 MG TABS 1-2 po TID PRN Pain TRAMADOL HCL 58137067539 No Longer Active Ahmet Carbajal MD Active METOPROLOL TARTRATE 50 MG TAB 1 po bid METOPROLOL TARTRATE 57244359462 No Longer Active Ahmet Carbajal MD Active ABILIFY 15 MG ORAL TABS 1 tab daily ARIPIPRAZOLE 56034456059 No Longer Active Ahmet Carbajal MD Active PROZAC 20 MG ORAL CAPS 1 tab daily FLUOXETINE HCL 62840954971 No Longer Active Ahmet Carbajal MD Active AMBIEN 5 MG ORAL TABS 1 tab at bedtime ZOLPIDEM TARTRATE 39760307693 No Longer Active Ahmet Carbajal MD Active PREDNISONE 20 MG TAB 2 tabs daily for 4 days, 1 tab daily for 4 days, 1/2 tab daily for 4 days PREDNISONE 01979729610 No Longer Active Ahmet Carbajal MD Active KEFLEX 500 MG CAP 1 po TID x 10 days CEPHALEXIN 92323235182 No Longer Active Vishal Hui MD Active IMITREX 50 MG ORAL TABS 1/2 tab every 6 hours prn SUMATRIPTAN SUCCINATE 41357477137 Active Jillina Fralebron NORIEGA Active TOPAMAX 50 MG ORAL TABS 1 tab twice daily TOPIRAMATE 56920043177 Active Vishal Hui MD Active SAPHRIS 5 MG SUBL 1 po bid ASENAPINE MALEATE 63220046536 No Longer Active 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 APRN Active LATUDA 80 MG TABS Take one by mouth daily LURASIDONE HCL 11518298968 No Longer Active 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 APRN Active AMLODIPINE BESYLATE 5 MG TABS 1 tablet by mouth daily AMLODIPINE BESYLATE 38800149139 No Longer Active 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 APRN Active AMITRIPTYLINE HCL 100 MG TAB one at hs AMITRIPTYLINE HCL 22425731414 No Longer Active Vishal Hui MD Active TRAZODONE HCL 100 MG TAB take 1 at bedtime TRAZODONE HCL 23502199644 No Longer Active Vishal Hui MD Active VYVANSE 40 MG CAPS 1 daily, LISDEXAMFETAMINE DIMESYLATE 02757564799 No Longer Active Vishal Hui MD Active IBUPROFEN 600 MG TAB 1 po TID PRN IBUPROFEN 10145356189 No Longer Active Vishal Hui MD Active PROZAC 20 MG CAP Take one by mouth daily FLUOXETINE HCL 80614937245 No Longer Active Vishal Hui MD Active ZOFRAN 4 MG TABS 1 po q6hr PRN Nausea ONDANSETRON HCL Active Vishal Hui MD Active BACTRIM DS 800-160 MG TABS 1 pill by mouth twice daily SULFAMETHOXAZOLE-TRIMETHOPRIM 59084426748 No Longer Active Sahara Rodriguez MD PhD Active DIFLUCAN 150 MG TAB 1 tablet by mouth daily FLUCONAZOLE 61424330262 No Longer Active Vishal Hui MD Active TIZANIDINE HCL 4 MG TABS 1 po q6hr PRN Muscle Spasm/Back Pain TIZANIDINE HCL 14029496816 Active Vishal Hui MD Active CLINDAMYCIN HCL 150 MG CAPS 1 four times a day CLINDAMYCIN HCL 50166301628 No Longer Active Neeraj Collins MD Active KEFLEX 500 MG ORAL CAPS 1 cap QID by mouth CEPHALEXIN 79603034994 No Longer Active Neeraj Collins MD Active DIFLUCAN 150 MG TABS 1 pill every other day x 2 doses FLUCONAZOLE 84126699045 No Longer Active Sahara Rodriguez MD PhD Active MELATONIN 3 MG CAPS 2 po q hs MELATONIN 62579429440 No Longer Active Sahara Rodriguez MD PhD Active MULTIVITAMINS CAPS Take one by mouth daily MULTIPLE VITAMIN 46698314133 No Longer Active Sahara Rodriguez MD PhD Active BACTRIM DS 800-160 MG TAB 1 tab by mouth twice daily TRIMETHOPRIM-SULFAMETHOXAZOLE 93132909973 No Longer Active Sahara Rodriguez MD PhD Active [facility] PROBIOTIC ORAL CHEW 2 daily po PROBIOTIC PRODUCT 41430570785 No Longer Active Sahara Rodriguez MD PhD Active BACTRIM DS 800-160 MG TABS 1 po BID x 7 days SULFAMETHOXAZOLE-TRIMETHOPRIM 75753878776 No Longer Active Vishal Hui MD Active CHANTIX STARTING MONTH EARNEST 0.5 MG X 11 & 1 MG X 42 TABS 0.5mg daily for 3 days , then 0.5mg BID for 4 days, then 1mg BID VARENICLINE TARTRATE 49952130904 No Longer Active TAMARA Gray Active VERAPAMIL HCL CR 120 MG TAB CR 1 po bid VERAPAMIL HCL 20372538071 No Longer Active Vishal Hui MD Active METOPROLOL SUCCINATE 50 MG TB24 1 tablet by mouth daily METOPROLOL SUCCINATE 57417427918 No Longer Active Vishal Hui MD Active SAPHRIS 10 MG SUBL 1 tab po bid ASENAPINE MALEATE 54817144619 No Longer Active Vishal Hui MD Active LISINOPRIL 20 MG TABS 1 tab po qd LISINOPRIL 49736795968 No Longer Active Vishal Hui MD Active LATUDA 20 MG TABS Take one by mouth daily LURASIDONE HCL 27691675585 No Longer Active Vishal Hui MD Active TRAZODONE HCL 50 MG TABS 1/2 tab po qd prn for anxiety TRAZODONE HCL 55775936962 No Longer Active Vishal Hui MD Active OMEPRAZOLE 20 MG TBEC 1 po q a.m. 30min prior to first food intake OMEPRAZOLE 70173882940 Active Vishal Hui MD Active RANITIDINE HCL 150 MG CAPS 1 twice a day RANITIDINE HCL 86082088330 Active 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 APRN Active LINZESS 290 MCG CAPS Take one by mouth daily LINACLOTIDE 76075686227 No Longer Active Vishal Hui MD Active SAPHRIS 5 MG SUBL 1 tab po qd ASENAPINE MALEATE 55264402407 No Longer Active Vishal Hui MD Active ZALEPLON 10 MG CAPS 1 cap po every other night ZALEPLON 77722033985 No Longer Active Vishal Hui MD Active LYRICA 50 MG CAPS 1 tab po TID PREGABALIN 66095796803 No Longer Active Vishal Hui MD Active LORATADINE 10 MG TABS 1 tab po qd LORATADINE 64914219783 No Longer Active Vishal Hui MD Active VERAPAMIL HCL ER 180 MG CR-TABS 1 tab po bid VERAPAMIL HCL 39274695807 No Longer Active Vishal Hui MD Active MIRALAX POWD 1 capfull once daily POLYETHYLENE GLYCOL 3350 70554303974 No Longer Active Vishal Hui MD Active PREDNISONE 20 MG TABS 1 tab po qd PREDNISONE 37763005762 No Longer Active Renzo Thornton DO Active LEVOFLOXACIN 500 MG TABS 1 tab po qd LEVOFLOXACIN 16408790389 No Longer Active Renzo Thornton DO Active BUSPIRONE HCL 15 MG TABS 1 tab po TID BUSPIRONE HCL 41178169246 No Longer Active Renzo Thornton DO Active BENZTROPINE MESYLATE 1 MG TABS 1 tab po qd BENZTROPINE MESYLATE 84201364971 No Longer Active Renzo Thornton DO Active ATENOLOL 25 MG TABS 1 tab po qd ATENOLOL 98740560963 No Longer Active Renzo Thornton DO Active ESCITALOPRAM OXALATE 20 MG TABS 1 tab po qd ESCITALOPRAM OXALATE 88134975332 No Longer Active Renzo Thornton DO Active ADVAIR DISKUS 250-50 MCG/DOSE AEPB 1 puff BID FLUTICASONE-SALMETEROL 39876744288 No Longer Active Renzo Thornton DO Active PREDNISONE 20 MG TAB 2 tabs daily for 3 days, 1 tab daily for 3 days, 1/2 tab daily for 2 days PREDNISONE 74112889007 No Longer Active Vishal Hui MD Active CEFDINIR 300 MG CAPS by mouth twice a day CEFDINIR 83185500217 No Longer Active Vishal Hui MD Active LANSOPRAZOLE 30 MG CPDR 1 cap po qd LANSOPRAZOLE 52885461218 No Longer Active Vishal Hui MD Active BACLOFEN 20 MG TABS 1 tab po tid BACLOFEN 34166171840 No Longer Active Vishal Hui MD Active ADVAIR DISKUS 250-50 MCG/DOSE AEPB 1 puff BID ADVAIR DISKUS 250-50 MCG/DOSE AEPB FLUTICASONE-SALMETEROL Inactive ESCITALOPRAM OXALATE 20 MG TABS 1 tab po qd ESCITALOPRAM OXALATE 20 MG TABS 976935 ESCITALOPRAM OXALATE Inactive ATENOLOL 25 MG TABS 1 tab po qd ATENOLOL 25 MG TABS 831863 ATENOLOL Inactive BENZTROPINE MESYLATE 1 MG TABS 1 tab po qd BENZTROPINE MESYLATE 1 MG TABS 255833 BENZTROPINE MESYLATE Inactive BUSPIRONE HCL 15 MG TABS 1 tab po TID BUSPIRONE HCL 15 MG TABS 552032 BUSPIRONE HCL Inactive LEVOFLOXACIN 500 MG TABS 1 tab po qd LEVOFLOXACIN 500 MG TABS 812667 LEVOFLOXACIN Inactive PREDNISONE 20 MG TABS 1 tab po qd PREDNISONE 20 MG TABS 285526 PREDNISONE Inactive MIRALAX POWD 1 capfull once daily MIRALAX POWD 140044 POLYETHYLENE GLYCOL 3350 Inactive VERAPAMIL HCL ER 180 MG CR-TABS 1 tab po bid VERAPAMIL HCL ER 180 MG CR-TABS VERAPAMIL HCL Inactive LORATADINE 10 MG TABS 1 tab po qd LORATADINE 10 MG TABS 517592 LORATADINE Inactive LYRICA 50 MG CAPS 1 tab po TID LYRICA 50 MG CAPS PREGABALIN Inactive ZALEPLON 10 MG CAPS 1 cap po every other night ZALEPLON 10 MG CAPS 365131 ZALEPLON Inactive SAPHRIS 5 MG SUBL 1 tab po qd SAPHRIS 5 MG SUBL ASENAPINE MALEATE Inactive TRAZODONE HCL 50 MG TABS 1/2 tab po qd prn for anxiety TRAZODONE HCL 50 MG TABS 340568 TRAZODONE HCL Inactive LATUDA 20 MG TABS Take one by mouth daily LATUDA 20 MG TABS LURASIDONE HCL Inactive LISINOPRIL 20 MG TABS 1 tab po qd LISINOPRIL 20 MG TABS 213290 LISINOPRIL Inactive SAPHRIS 10 MG SUBL 1 [...] twice daily BACTRIM DS 800-160 MG TAB 363466 TRIMETHOPRIM-SULFAMETHOXAZOLE Inactive MULTIVITAMINS CAPS Take one by mouth daily MULTIVITAMINS CAPS MULTIPLE VITAMIN Inactive MELATONIN 3 MG CAPS 2 po q hs MELATONIN 3 MG CAPS 744218 MELATONIN Inactive KEFLEX 500 MG ORAL CAPS 1 cap QID by mouth KEFLEX 500 MG ORAL CAPS 797921 CEPHALEXIN Inactive CLINDAMYCIN HCL 150 MG CAPS 1 four times a day CLINDAMYCIN HCL 150 MG CAPS 641521 CLINDAMYCIN HCL Inactive DIFLUCAN 150 MG TAB 1 tablet by mouth daily DIFLUCAN 150 MG TAB 126990 FLUCONAZOLE Inactive PROZAC 20 MG CAP Take one by mouth daily PROZAC 20 MG CAP 818157 FLUOXETINE HCL Inactive IBUPROFEN 600 MG TAB 1 po TID PRN IBUPROFEN 600 MG TAB 181732 IBUPROFEN Inactive VYVANSE 40 MG CAPS 1 daily, VYVANSE 40 MG CAPS LISDEXAMFETAMINE DIMESYLATE Inactive TRAZODONE HCL 100 MG TAB take 1 at bedtime TRAZODONE HCL 100 MG TAB 185751 TRAZODONE HCL Inactive AMITRIPTYLINE HCL 100 MG TAB one at hs AMITRIPTYLINE HCL 100 MG TAB 710423 AMITRIPTYLINE HCL Inactive AMLODIPINE BESYLATE 5 MG TABS 1 tablet by mouth daily AMLODIPINE BESYLATE 5 MG TABS 552843 AMLODIPINE BESYLATE Inactive LATUDA 80 MG TABS Take one by mouth daily LATUDA 80 MG TABS LURASIDONE HCL Inactive SAPHRIS 5 MG SUBL 1 po bid SAPHRIS 5 MG SUBL ASENAPINE MALEATE Inactive PREDNISONE 20 MG TAB 2 tabs daily for 4 days, 1 tab daily for 4 days, 1/2 tab daily for 4 days PREDNISONE 20 MG TAB 000951 PREDNISONE Inactive AMBIEN 5 MG ORAL TABS 1 tab at bedtime AMBIEN 5 MG ORAL TABS 480080 ZOLPIDEM TARTRATE Inactive PROZAC 20 MG ORAL CAPS 1 tab daily PROZAC 20 MG ORAL CAPS 411255 FLUOXETINE HCL Inactive ABILIFY 15 MG ORAL TABS 1 tab daily ABILIFY 15 MG ORAL TABS 536548 ARIPIPRAZOLE Inactive METOPROLOL TARTRATE 50 MG TAB 1 po bid METOPROLOL TARTRATE 50 MG TAB 514366 METOPROLOL TARTRATE Inactive TRAMADOL HCL 50 MG TABS 1-2 po TID PRN Pain TRAMADOL HCL 50 MG TABS 663536 TRAMADOL HCL Inactive PIROXICAM 20 MG CAPS 1 cap po qd PRN Pain PIROXICAM 20 MG CAPS 609340 PIROXICAM Inactive MINIPRESS 2 MG CAPS 4 cap po at night MINIPRESS 2 MG CAPS 434566 PRAZOSIN HCL Inactive MIRALAX PACK 1 po qd PRN Constipation MIRALAX PACK 403229 POLYETHYLENE GLYCOL 3350 Inactive METOPROLOL TARTRATE 25 MG ORAL TABS 1/2 tablet twice daily for heart rate and blood pressure METOPROLOL TARTRATE 25 MG ORAL TABS 447687 METOPROLOL TARTRATE Inactive VALIUM 5 MG TAB Take 1-2 tablets daily VALIUM 5 MG TAB 140724 DIAZEPAM Inactive FLAGYL 500 MG TAB 1 tablet by mouth bid FLAGYL 500 MG TAB 226806 METRONIDAZOLE Inactive DICLOFENAC POTASSIUM TABS Take 1 tablet twice a day (pt. is not sure of the dose.) DICLOFENAC POTASSIUM TABS DICLOFENAC POTASSIUM TABS Inactive ZITHROMAX Z-EARNEST 250 MG TABS 2 today and then 1 daily for 4 days ZITHROMAX Z-EARNEST 250 MG TABS 7761960 AZITHROMYCIN Inactive PREDNISONE 20 MG TABS 2 daily for 5 days then 1 daily for 5 days PREDNISONE 20 MG TABS 009483 PREDNISONE Inactive PROAIR HFA 108 (90 BASE) MCG/ACT AERS 2 puffs four times a day as needed 2015 PROAIR HFA 108 (90 BASE) MCG/ACT AERS ALBUTEROL SULFATE Inactive HYDROCODONE-ACETAMINOPHEN 5-325 MG TABS 1 to 2 four times a day as needed for pain use until can be seen by specialist HYDROCODONE- ACETAMINOPHEN 5-325 MG TABS 889968 HYDROCODONE-ACETAMINOPHEN Inactive CEFDINIR 300 MG CAPS by mouth twice a day CEFDINIR 300 MG CAPS 086671 CEFDINIR Inactive PREDNISONE 20 MG TAB 2 tabs daily for 3 days, 1 tab daily for 3 days, 1/2 tab daily for 2 days PREDNISONE 20 MG TAB 175618 PREDNISONE Inactive BACTRIM DS 800-160 MG TABS 1 po BID x 7 days BACTRIM DS 800-160 MG TABS 651394 SULFAMETHOXAZOLE-TRIMETHOPRIM Inactive DIFLUCAN 150 MG TABS 1 pill every other day x 2 doses DIFLUCAN 150 MG TABS 700856 FLUCONAZOLE Inactive BACTRIM DS 800-160 MG TABS 1 pill by mouth twice daily BACTRIM DS 800-160 MG TABS 725019 SULFAMETHOXAZOLE-TRIMETHOPRIM Inactive KEFLEX 500 MG CAP 1 po TID x 10 days KEFLEX 500 MG CAP 503790 CEPHALEXIN Inactive Advance Directives Directive Description Start Date DISCUSSED WITH PATIENT -- NO DECISION MADE Vital Signs Date Name Value Unit Range Description blood pressure, diastolic - 8462-4 89 mm[Hg] [...] % 11.6-14.8 platelet count 394 10^3/MM^3 10*3/mm3 036-260 2658/01/11 leukocyte count, blood 13.8 10^3/MM^3 10*3/mm3 4.6-10.2 [...] Panel - Chemistry sodium, serum 139 mmol/L 077-109 9392/12/03 carbon dioxide, venous blood 28.5 mmol/L 21.0-32.0 [...] 5.5 % 4.3-6.0 cholesterol, serum 159 mg/dL 907-723 8814/12/03 triglyceride, serum, fasting 118 mg/dL 30-200 HDL [...] Panel - Chemistry sodium, serum 139 mmol/L 119-969 7048/12/22 carbon dioxide, venous blood 26.8 mmol/L 21.0-32.0 potassium, serum 4.2 mmol/L 3.5-5.2 chloride, serum 103 mmol/L 98-107 blood glucose 115 mg/dL 65-110 urea nitrogen, blood 20 mg/dL 7-18 creatinine, serum 0.90 mg/dL 0.55-1.30 alanine aminotransferase (SGPT), serum 38 U/L -78 aspartate aminotransferase (SGOT), serum 19 U/L 15-37 calcium, serum 8.6 mg/dL 8.5-10.1 bilirubin, serum, total 0.30 mg/dL 0.00-1.00 sodium, serum 139 mmol/L 229-869 0290/01/11 carbon dioxide, venous blood 26.6 mmol/L 21.0-32.0 potassium, serum 4.1 mmol/L 3.5-5.2 chloride, serum 100 mmol/L 98-107 blood glucose 86 mg/dL 65-110 urea nitrogen, blood 16 mg/dL 7-18 creatinine, serum 1.00 mg/dL 0.55-1.30 alanine aminotransferase (SGPT), serum 48 U/L 78 aspartate aminotransferase (SGOT), serum 17 U/L 15-37 calcium, serum 9.1 mg/dL 8.5-10.1 bilirubin, serum, total 0.40 mg/dL 0.00-1.00 sodium, serum 142 mmol/L 157-311 4348/06/08 carbon dioxide, venous blood 27.6 mmol/L 21.0-32.0 potassium, serum 4.0 mmol/L 3.5-5.2 chloride, serum 105 mmol/L 98-107 blood glucose 95 mg/dL 65-110 urea nitrogen, blood 8 mg/dL 7-18 creatinine, serum 0.75 mg/dL 0.55-1.30 alanine aminotransferase (SGPT), serum 49 U/L - aspartate aminotransferase (SGOT), serum 28 U/L 15-37 calcium, serum 9.4 mg/dL 8.5-10.1 bilirubin, serum, total 0.30 mg/dL 0.00-1.00 sodium, serum 140 mmol/L 736-749 4500/08/08 carbon dioxide, venous blood 33.7 mmol/L 21.0-32.0 potassium, serum 5.0 mmol/L 3.5-5.2 chloride, serum 103 mmol/L 98-107 blood glucose 80 mg/dL 65-110 urea nitrogen, blood 13 mg/dL 7-18 creatinine, serum 0.88 mg/dL 0.55-1.30 alanine aminotransferase (SGPT), serum 54 U/L aspartate aminotransferase (SGOT), serum 29 U/L 15-37 calcium, serum 9.7 mg/dL 8.5-10.1 bilirubin, serum, total 0.30 mg/dL 0.00-1.00 Lab Report: Comp. Metabolic Panel, Erythrocyte Sed Rate - Chemistry sodium, serum 139 mmol/L 331-640 2926/12/11 carbon dioxide, venous blood 25.4 mmol/L 21.0-32.0 [...] mg/dL Encounters Code Encounter Date Provider Facility CPT-11140 Level 3 Est. Patient 11:36:17 CDT Ahmet Carbajal MD [facility] CPT-17999 Level 3 Est. Patient 13:29:16 CDT Vishal Hui MD [facility] CPT-66919 Level 3 Est. Patient 14:27:52 CDT Neeraj Collins MD [facility] CPT-82919 Level 3 Est. Patient 08:56:03 CDT 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 APRN [facility] CPT-79509 Level 4 Est. Patient 12:11:48 CDT Fabiola Johnson APRN [facility] CPT-40288 Level 3 New Patient 16:53:37 CDT Albert Caldera MD [facility] CPT-79105 Level 3 Est. Patient 11:25:49 CDT Renzo Thornton DO [facility] CPT-41166 Level 3 Est. Patient 15:22:01 CDT Ahmet Carbajal MD [facility] CPT-23340 Level 4 Est. Patient 09:00:51 BILINGUAL SPEECH THERAPIST Vishal Hui MD [facility] CPT-83758 Level 3 Est. Patient 11:37:33 BILINGUAL SPEECH THERAPIST Vishal Hui MD [facility] CPT-81052 Level 3 Est. Patient 08:41:09 BILINGUAL SPEECH THERAPIST Vishal Hui MD [facility] CPT-20624 Level 4 Est. Patient 10:19:35 BILINGUAL SPEECH THERAPIST Vishal Hui MD [facility] CPT-89107 Level 3 Est. Patient 13:35:45 CDT Vishal Hui MD [facility] CPT-49316 Level 4 Est. Patient 10:08:37 CDT Vishal Hui MD [facility] CPT-72283 Level 3 Est. Patient 11:22:10 CDT Vishal Hui MD [facility] CPT-85820 Level 3 Est. Patient 11:03:32 CDT Sahara Rodriguez MD PhD [facility] CPT-29322 Level 3 Est. Patient 09:41:35 CDT Vishal Hui MD [facility] CPT-33661 Level 3 Est. Patient 12:00:41 CDT Neeraj Collins MD [facility] CPT-35246 Level 3 Est. Patient 09:16:24 CDT Vishal Hui MD [facility] CPT-46155 Level 4 Est. Patient 13:59:09 CDT Neeraj Collins MD [facility] CPT-80475 Level 3 Est. Patient 15:19:43 CDT Renzo Thornton [facility] CPT-75637 Level 3 Est. Patient 18:10:26 CDT Sahara Rodriguez MD [facility] CPT-19527 Level 3 Est. Patient 14:49:50 CDT Vishal Hui MD [facility] CPT-42948 Level 4 Est. Patient 18:41:46 CDT Neeraj Collins MD [facility] CPT-88321 Level 4 Est. Patient 09:18:38 BILINGUAL SPEECH THERAPIST Vishal Hui MD [facility] CPT-69396 Level 3 Est. Patient 14:43:55 BILINGUAL SPEECH THERAPIST Vishal Hui MD [facility] CPT-79724 Level 3 Est. Patient 15:26:33 BILINGUAL SPEECH THERAPIST Sahara Rodriguez MD PhD [facility] CPT-16339 Level 3 Est. Patient 10:32:14 BILINGUAL SPEECH THERAPIST Vishal Hui MD [facility] CPT-43468 Level 3 Est. Patient 15:12:52 BILINGUAL SPEECH THERAPIST Vishal Hui MD [facility] CPT-68205 Level 4 Est. Patient 09:19:27 CDT Vishal Hui MD [facility] CPT-61137 Level 3 Est. Patient 15:53:00 CDT Renzo Thornton [facility] CPT-63176 Level 3 Est. Patient 15:50:30 CDT Renzo Thornton [facility] CPT-20854 Level 3 Est. Patient 16:55:24 CDT Vishal Hui MD [facility] Procedures Code Procedure Name Date Entry Date Standard Description CPT-84843 Abx/Therapy Injection 08:47:09 CDT CPT-17800 Abx/Therapy Injection 13:29:56 CDT CPT-88624 Abx/Therapy Injection 08:36:16 CDT CPT-29377 Wet Mount - LAB USE ONLY 17:44:58 CDT CPT-93438 UA w micro - LAB USE ONLY 17:44:58 CDT CPT-79660 CMP - LAB USE ONLY 17:44:58 CDT CPT-01135 Venipuncture Draw Fee 17:44:58 CDT CPT-38513 Cervical Min 4V - XRAY USE ONLY 09:01:40 CDT CPT-89515 Chest 2V Frontal and Lat - XRAY USE ONLY 11:06:31 CDT CPT-84630 EKG Trac and Interp - XRAY USE ONLY 11:31:43 CDT 08/26 CPT-J3420 Vitamin B12 1000mcg (Cyanocobalamin) 08:10:26 BILINGUAL SPEECH THERAPIST 04/12 CPT-77485 Abx/Therapy Injection 08:10:26 BILINGUAL SPEECH THERAPIST CPT-G0438 Initial Annual Wellness Exam 19:01:01 BILINGUAL SPEECH THERAPIST CPT-J3420 Vitamin B12 1000mcg (Cyanocobalamin) 16:57:46 CDT 08/14 CPT-92845 Recombivax HB Injection Suspension 5 MCG/0.5ML 08:37:50 BILINGUAL SPEECH THERAPIST CPT-35332 Immunization Single Admin 08:37:50 BILINGUAL SPEECH THERAPIST CPT-J3420 Vitamin B12 1000mcg (Cyanocobalamin) 08:32:16 BILINGUAL SPEECH THERAPIST 03/11 CPT-22706 Abx/Therapy Injection 08:32:16 BILINGUAL SPEECH THERAPIST CPT-84019 Chest 2V Frontal and Lat 11:46:38 BILINGUAL SPEECH THERAPIST CPT-55672 Venipuncture Draw Fee 09:12:45 BILINGUAL SPEECH THERAPIST CPT-J3420 Vitamin B12 1000mcg (Cyanocobalamin) 08:50:15 BILINGUAL SPEECH THERAPIST 02/08 CPT-73529 Abx/Therapy Injection 08:50:15 BILINGUAL SPEECH THERAPIST CPT-Cryo Cryotherapy 10:19:35 BILINGUAL SPEECH THERAPIST CPT-000 Give Appropriate Flu Vaccine 09:22:16 CDT CPT-J3420 Vitamin B12 1000mcg (Cyanocobalamin) 19:08:57 CDT 01/11 CPT-98695 Abx/Therapy Injection 19:08:57 CDT CPT-J3420 Vitamin B12 1000mcg (Cyanocobalamin) 08:19:08 CDT 12/11 CPT-35956 Abx/Therapy Injection 08:19:08 CDT CPT-J3420 Vitamin B12 1000mcg (Cyanocobalamin) 14:48:00 CDT 11/09 CPT-04998 Abx/Therapy Injection 14:47:59 CDT CPT-J3420 Vitamin B12 1000mcg (Cyanocobalamin) 08:34:04 CDT 10/09 CPT-77169 Abx/Therapy Injection 08:34:04 CDT CPT-J3420 Vitamin B12 1000mcg (Cyanocobalamin) 09:18:52 CDT 09/11 CPT-45111 Abx/Therapy Injection 09:18:52 CDT CPT-J3420 Vitamin B12 1000mcg (Cyanocobalamin) 08:35:44 CDT 09/04 CPT-63695 Abx/Therapy Injection 08:35:44 CDT CPT-30699 Immunization Single Admin 11:07:16 CDT CPT-20831 Hepatitis B adult IM 11:07:16 CDT CPT-J3420 Vitamin B12 1000mcg (Cyanocobalamin) 11:00:49 CDT 08/28 CPT-J1040 Depo Medrol 80 mg (Methyl Prednisolone Acetate) 11:00: 49 CDT CPT-92092 Abx/Therapy Injection 11:00:49 CDT CPT-J1040 Depo Medrol 80 mg (Methyl Prednisolone Acetate) 09:16: 23 CDT CPT-J3420 Vitamin B12 1000mcg (Cyanocobalamin) 08:27:05 CDT 08/20 CPT-50998 Abx/Therapy Injection 08:27:05 CDT CPT-76428 Recombivax HB Injection Suspension 5 MCG/0.5ML 10:00:41 CDT CPT-86383 Administration single or combination vaccine inc oral 10 :00:41 CDT CPT-67027 Sono transvag pelvis non OB uterus ovaries cervix 16:36: 57 CDT CPT-06046 LS spine comp w obliq 09:50:55 BILINGUAL SPEECH THERAPIST CPT-10708 Abd compl w upright 09:50:55 BILINGUAL SPEECH THERAPIST CPT-J1100 Decadron 4mg (Dexamethasone) 15:51:24 BILINGUAL SPEECH THERAPIST CPT-J1030 Depo Medrol 40 mg (Methyl Prednisolone Acetate) 15:51: 24 BILINGUAL SPEECH THERAPIST CPT-28611 Abx/Therapy Injection 15:51:24 BILINGUAL SPEECH THERAPIST CPT-J1100 Decadron 4mg (Dexamethasone) 15:26:33 BILINGUAL SPEECH THERAPIST CPT-J1030 Depo Medrol 40 mg (Methyl Prednisolone Acetate) 15:26: 33 BILINGUAL SPEECH THERAPIST CPT-67884 Sono retroperitoneal complete kidneys and bladder 17:15: 30 CDT CPT-64807 Abd compl w upright 16:09:25 CDT CPT-J1100 Decadron 8mg (Dexamethasone) 17:07:57 CDT CPT-28253 Abx/Therapy Injection 17:07:57 CDT CPT-J1100 Decadron 8mg (Dexamethasone) 16:55:24 CDT CPT-27332 Chest 2V Frontal and Lat 16:32:44 CDT
--- OUTSIDE RECORDS SUMMARY | 2016-11-04 11:46 | XMS REPORT ---
Author Author [facility] Medical Staff Organization [facility] Address [address] [place], [place] [id number] Phone [phone] Care Team Providers Care Director Physical Therapy Name Role Phone DENICE OCHOA MD, PP [phone] DENICE OCHOA MD, PP [phone] Summary purpose TRANSITION OF CARE AUTO GENERATION [...] for this patient visit History of procedures No procedures recorded for this patient visit. Functional status Functional Status Finding Observation Time Abdomen Appearance obese :40 Abdomen soft :40 Vick no :40 Urination normal :40 Quality sym/unlabored :40 Cough non-productive :40 Secretions no :40 Breath Sounds RUL wheezes :40 Breath Sounds RML wheezes :40 Breath Sounds RLL wheezes :40 Breath Sounds BENJA wheezes :40 Breath Sounds LLL wheezes :40 Airway natural :40 Chest Tube no :40 Oxygen no :00 Temp >100.4 no :40 Temp <96.8 no :40 Chills with rigors no : HR > 90bpm no :40 Respirations > 20 no :40 Systolic <90 no :40 headache stiff neck no :40 Nursing Note VS obtained. Pt stable to ambulate off valdovinos with script in hand. Pt is waiting in cafeteria until her 11:00 appt with Jagdish. : Vital signs Type Value Date Respiration Rate 20breaths per minute : Pulse 100beats per minute : Oxygen Saturation 100% :00 BP Systolic 98mmHg :00 BP Diastolic 71mmHg :00 Temperature 99.3F :00 Weight 285LB :34 Social history Type Value Smoking Status CURRENT EVERY DAY SMOKER Treatment Plan No treatment plan text is available for this visit. Hospital discharge instructions Dismissal Condition good Disposition on DC home Comment: Pt given a script for Zithromax and pt waiting in cafeteria until 11: 00 appt with Jagdish. DC Inst/Educ Give yes Med/Side Effects Rev yes PNE Vac No Flu Vac 2015 Tetanus Vac 2014
--- OUTSIDE RECORDS SUMMARY | 2016-11-04 11:46 | XMS REPORT | Clinical Summary ---
Author Author Admin, E Organization [facility] Address Unknown Phone Unavailable Allergies, Adverse Reactions, [...] breath Nocturnal hypoxia 799.02 Active Fabiola Johnson RETAIL LINK ANALYST Hypoxemia Neck pain 723.1 Resolved Vishal Hui [...] ICD-627.2 Jim Hui MD Personality change ICD-301.9 Inactive Vishal [...] vagina q pm x 7 MICONAZOLE NITRATE 74997687695 Active Pacollina Johnl RETAIL LINK ANALYST Active FLAGYL 500 MG TAB 1 tablet by mouth bid METRONIDAZOLE 79077640846 Active Jillina Frazell RETAIL LINK ANALYST Active TESSALON PERLES 100 MG CAP 1 to 2 tablets by mouth 3 times daily as needed for cough BENZONATATE 95377626620 No Longer Active Tataina Messizell RETAIL LINK ANALYST Active ABILIFY MAINTENA 400 MG IM SUSR 400mg injection every 26 days ARIPIPRAZOLE 12654202383 Active Silvia Ervinum MANIFOLD BUILDER Active IMITREX 50 MG ORAL TABS 0.5 po x 1 PRN Headache. May repeat dose x 1 in 2 hours if needed SUMATRIPTAN SUCCINATE 19907312476 Active Vishal Hui MD Active OXYCODONE HCL ER 10 MG ORAL T12A 1/2 tab by mouth every 4 hours prn OXYCODONE HCL 89863774293 Active Neeraj Collins MD Active METHYLPREDNISOLONE 4 MG ORAL TABS po daily METHYLPREDNISOLONE 98269531421 Active Vishal Hui MD Active LEVOFLOXACIN 500 MG ORAL TABS po daily LEVOFLOXACIN 69114529521 Active Vishal Hui MD Active CHANTIX STARTING MONTH EARNEST 0.5 MG X 11 & 1 MG X 42 TABS take as directed 2015 VARENICLINE TARTRATE 27064666673 Active Ahmet Carbajal MD Active CHANTIX 1 MG TABS 1 twice a day to help quit smoking VARENICLINE TARTRATE 38978364520 Active Ahmet Carbajal MD Active HYDROCODONE-ACETAMINOPHEN 5-325 MG TABS 1 to 2 four times a day as needed for pain use until can be seen by specialist HYDROCODONE- ACETAMINOPHEN 26270688523 No Longer Active Vishal Hui MD Active PROAIR HFA 108 (90 BASE) MCG/ACT AERS 2 puffs four times a day as needed 2015 ALBUTEROL SULFATE 84263098337 No Longer Active Vishal Hui MD Active PREDNISONE 20 MG TABS 2 daily for 5 days then 1 daily for 5 days PREDNISONE 57394679343 No Longer Active Vishal Hui MD Active ZITHROMAX Z-EARNEST 250 MG TABS 2 today and then 1 daily for 4 days AZITHROMYCIN 95154883510 No Longer Active Vishal Hui MD Active DICLOFENAC SODIUM 50 MG TBEC 1 tablet by mouth four times daily PRN Pain 2015 DICLOFENAC SODIUM 07319411485 Active Vishal Hui MD Active DICLOFENAC POTASSIUM TABS Take 1 tablet twice a day (pt. is not sure of the dose.) DICLOFENAC POTASSIUM TABS 49980217925 No Longer Active Vishal Hui MD Active VERAPAMIL HCL ER 120 MG ORAL CR-TABS Take 1 tablet by mouth twice a day. VERAPAMIL HCL 57105945890 Active Vishal Hui MD Active FLAGYL 500 MG TAB 1 tablet by mouth bid METRONIDAZOLE 65492521012 No Longer Active Vishal Hui MD Active FLUTICASONE PROPIONATE 50 MCG/ACT SUSP 2 sprays each nostril daily before bed. FLUTICASONE PROPIONATE 17254809491 Active Fabiola Johnson APRN Active ADZENYS XR-ODT 6.3 MG ORAL TBED 1 tab po daily for ADHD AMPHETAMINE 82228764200 Active Fabiola Johnson APRN Active BENADRYL 25 MG CAP 4 po at bedtime for insomnia DIPHENHYDRAMINE HCL 48740549280 Active Fabiola Johnson APRN Active KLONOPIN 1 MG ORAL TABS 1 tab po TID CLONAZEPAM 97740195961 Active Fabiola Johnson APRN Active VALIUM 5 MG TAB Take 1-2 tablets daily DIAZEPAM 34197346592 No Longer Active Fabiola Johnson APRN Active METOPROLOL TARTRATE 25 MG ORAL TABS 1/2 tablet twice daily for heart rate and blood pressure METOPROLOL TARTRATE 90091536856 No Longer Active Fabiola Johnson APRN Active MIRALAX ORAL POWD 17GMS DAILY IN WATER POLYETHYLENE GLYCOL 3350 28044310927 Active Vishal Hui MD Active VIIBRYD 10 MG ORAL TABS Take 1 tablet once a day VILAZODONE HCL 87611059491 Active Ahmet Carbajal MD Active MIRALAX PACK 1 po qd PRN Constipation POLYETHYLENE GLYCOL 3350 52091221259 No Longer Active Ahmet Carbajal MD Active MINIPRESS 2 MG CAPS 4 cap po at night PRAZOSIN HCL 31401151855 No Longer Active Ahmet Carbajal MD Active PIROXICAM 20 MG CAPS 1 cap po qd PRN Pain PIROXICAM 87523275904 No Longer Active Ahmet Carbajal MD Active TRAMADOL HCL 50 MG TABS 1-2 po TID PRN Pain TRAMADOL HCL 85936304889 No Longer Active Ahmet Carbajal MD Active METOPROLOL TARTRATE 50 MG TAB 1 po bid METOPROLOL TARTRATE 10676846919 No Longer Active Ahmet Carbajal MD Active ABILIFY 15 MG ORAL TABS 1 tab daily ARIPIPRAZOLE 22881167569 No Longer Active Ahmet Carbajal MD Active PROZAC 20 MG ORAL CAPS 1 tab daily FLUOXETINE HCL 24944018893 No Longer Active Ahmet Carbajal MD Active AMBIEN 5 MG ORAL TABS 1 tab at bedtime ZOLPIDEM TARTRATE 77158106144 No Longer Active Ahmet Carbajal MD Active PREDNISONE 20 MG TAB 2 tabs daily for 4 days, 1 tab daily for 4 days, 1/2 tab daily for 4 days PREDNISONE 46862789474 No Longer Active Ahmet Carbajal MD Active KEFLEX 500 MG CAP 1 po TID x 10 days CEPHALEXIN 09293493426 No Longer Active Vishal Hui MD Active TOPAMAX 50 MG ORAL TABS 1 tab twice daily TOPIRAMATE 11115798438 Active Vishal Hui MD Active SAPHRIS 5 MG SUBL 1 po bid ASENAPINE MALEATE 73337621221 No Longer Active 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 RETAIL LINK ANALYST Active LATUDA 80 MG TABS Take one by mouth daily LURASIDONE HCL 94919498657 No Longer Active Pacollina Mauricio RETAIL LINK ANALYST Active AMLODIPINE BESYLATE 5 MG TABS 1 tablet by mouth daily AMLODIPINE BESYLATE 62287124238 No Longer Active 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 RETAIL LINK ANALYST Active AMITRIPTYLINE HCL 100 MG TAB one at hs AMITRIPTYLINE HCL 18705358452 No Longer Active Vishal Hui MD Active TRAZODONE HCL 100 MG TAB take 1 at bedtime TRAZODONE HCL 25815282982 No Longer Active Vishal Hui MD Active VYVANSE 40 MG CAPS 1 daily, LISDEXAMFETAMINE DIMESYLATE 91306357597 No Longer Active Vishal Hui MD Active IBUPROFEN 600 MG TAB 1 po TID PRN IBUPROFEN 78519342106 No Longer Active Vishal Hui MD Active PROZAC 20 MG CAP Take one by mouth daily FLUOXETINE HCL 03157070870 No Longer Active Vishal Hui MD Active ZOFRAN 4 MG TABS 1 po q6hr PRN Nausea ONDANSETRON HCL Active Vishal Hui MD Active BACTRIM DS 800-160 MG TABS 1 pill by mouth twice daily SULFAMETHOXAZOLE-TRIMETHOPRIM 02071113670 No Longer Active Sahara Rodriguez MD PhD Active DIFLUCAN 150 MG TAB 1 tablet by mouth daily FLUCONAZOLE 83240296136 No Longer Active Vishal Hui MD Active TIZANIDINE HCL 4 MG TABS 1 po q6hr PRN Muscle Spasm/Back Pain TIZANIDINE HCL 05969336319 Active Vishal Hui MD Active CLINDAMYCIN HCL 150 MG CAPS 1 four times a day CLINDAMYCIN HCL 21482126294 No Longer Active Neeraj Collins MD Active KEFLEX 500 MG ORAL CAPS 1 cap QID by mouth CEPHALEXIN 31583519965 No Longer Active Neeraj Collins MD Active DIFLUCAN 150 MG TABS 1 pill every other day x 2 doses FLUCONAZOLE 06233939811 No Longer Active Sahara Rodriguez MD PhD Active MELATONIN 3 MG CAPS 2 po q hs MELATONIN 24633738431 No Longer Active Sahara Rodriguez MD PhD Active MULTIVITAMINS CAPS Take one by mouth daily MULTIPLE VITAMIN 69036912449 No Longer Active Sahara Rodriguez MD PhD Active BACTRIM DS 800-160 MG TAB 1 tab by mouth twice daily TRIMETHOPRIM-SULFAMETHOXAZOLE 64267821018 No Longer Active Sahara Rodriguez MD PhD Active [facility] PROBIOTIC ORAL CHEW 2 daily po PROBIOTIC PRODUCT 39397185695 No Longer Active Sahara Rodriguez MD PhD Active BACTRIM DS 800-160 MG TABS 1 po BID x 7 days SULFAMETHOXAZOLE-TRIMETHOPRIM 14047171271 No Longer Active Vishal Hui MD Active CHANTIX STARTING MONTH EARNEST 0.5 MG X 11 & 1 MG X 42 TABS 0.5mg daily for 3 days , then 0.5mg BID for 4 days, then 1mg BID VARENICLINE TARTRATE 58977249156 No Longer Active TAMARA Gray Active VERAPAMIL HCL CR 120 MG TAB CR 1 po bid VERAPAMIL HCL 97319352831 No Longer Active Vishal Hui MD Active METOPROLOL SUCCINATE 50 MG TB24 1 tablet by mouth daily METOPROLOL SUCCINATE 02278123011 No Longer Active Vishal Hui MD Active SAPHRIS 10 MG SUBL 1 tab po bid ASENAPINE MALEATE 94524141722 No Longer Active Vishal Hui MD Active LISINOPRIL 20 MG TABS 1 tab po qd LISINOPRIL 60415787200 No Longer Active Vishal Hui MD Active LATUDA 20 MG TABS Take one by mouth daily LURASIDONE HCL 84970667975 No Longer Active Vsihal Hui MD Active TRAZODONE HCL 50 MG TABS 1/2 tab po qd prn for anxiety TRAZODONE HCL 05664309985 No Longer Active Vishal Hui MD Active OMEPRAZOLE 20 MG TBEC 1 po q a.m. 30min prior to first food intake OMEPRAZOLE 30920579036 Active Vishal Hui MD Active RANITIDINE HCL 150 MG CAPS 1 twice a day RANITIDINE HCL 65006079921 Active Jillina Johnl RETAIL LINK ANALYST Active LINZESS 290 MCG CAPS Take one by mouth daily LINACLOTIDE 84520087963 No Longer Active Vishal Hui MD Active SAPHRIS 5 MG SUBL 1 tab po qd ASENAPINE MALEATE 86893272561 No Longer Active Vishal Hui MD Active ZALEPLON 10 MG CAPS 1 cap po every other night ZALEPLON 00751136743 No Longer Active Vishal Hui MD Active LYRICA 50 MG CAPS 1 tab po TID PREGABALIN 13997686972 No Longer Active Vishal Hui MD Active LORATADINE 10 MG TABS 1 tab po qd LORATADINE 21902145123 No Longer Active Vishal Hui MD Active VERAPAMIL HCL ER 180 MG CR-TABS 1 tab po bid VERAPAMIL HCL 93623728026 No Longer Active Vishal Hui MD Active MIRALAX POWD 1 capfull once daily POLYETHYLENE GLYCOL 3350 62793400973 No Longer Active Vishal Hui MD Active PREDNISONE 20 MG TABS 1 tab po qd PREDNISONE 22647780872 No Longer Active Renzo Thornton DO Active LEVOFLOXACIN 500 MG TABS 1 tab po qd LEVOFLOXACIN 93916181982 No Longer Active Renzo Thornton DO Active BUSPIRONE HCL 15 MG TABS 1 tab po TID BUSPIRONE HCL 82693297948 No Longer Active Renzo Thornton DO Active BENZTROPINE MESYLATE 1 MG TABS 1 tab po qd BENZTROPINE MESYLATE 93420400338 No Longer Active Renzo Thornton DO Active ATENOLOL 25 MG TABS 1 tab po qd ATENOLOL 66187125391 No Longer Active Renzo Thornton DO Active ESCITALOPRAM OXALATE 20 MG TABS 1 tab po qd ESCITALOPRAM OXALATE 06591438338 No Longer Active Renzo Thornton DO Active ADVAIR DISKUS 250-50 MCG/DOSE AEPB 1 puff BID FLUTICASONE-SALMETEROL 01801145880 No Longer Active Renzo Thornton DO Active PREDNISONE 20 MG TAB 2 tabs daily for 3 days, 1 tab daily for 3 days, 1/2 tab daily for 2 days PREDNISONE 64869373483 No Longer Active Vishal Hui MD Active CEFDINIR 300 MG CAPS by mouth twice a day CEFDINIR 53795240053 No Longer Active Vishal Hui MD Active LANSOPRAZOLE 30 MG CPDR 1 cap po qd LANSOPRAZOLE 61962230419 No Longer Active Vishal Hui MD Active BACLOFEN 20 MG TABS 1 tab po tid BACLOFEN 80442445069 No Longer Active Vishal Hui MD Active ADVAIR DISKUS 250-50 MCG/DOSE AEPB 1 puff BID ADVAIR DISKUS 250-50 MCG/DOSE AEPB FLUTICASONE-SALMETEROL Inactive ESCITALOPRAM OXALATE 20 MG TABS 1 tab po qd ESCITALOPRAM OXALATE 20 MG TABS 161724 ESCITALOPRAM OXALATE Inactive ATENOLOL 25 MG TABS 1 tab po qd ATENOLOL 25 MG TABS 353006 ATENOLOL Inactive BENZTROPINE MESYLATE 1 MG TABS 1 tab po qd BENZTROPINE MESYLATE 1 MG TABS 813965 BENZTROPINE MESYLATE Inactive BUSPIRONE HCL 15 MG TABS 1 tab po TID BUSPIRONE HCL 15 MG TABS 091933 BUSPIRONE HCL Inactive LEVOFLOXACIN 500 MG TABS 1 tab po qd LEVOFLOXACIN 500 MG TABS 002438 LEVOFLOXACIN Inactive PREDNISONE 20 MG TABS 1 tab po qd PREDNISONE 20 MG TABS 031545 PREDNISONE Inactive MIRALAX POWD 1 capfull once daily MIRALAX POWD 627651 POLYETHYLENE GLYCOL 3350 Inactive VERAPAMIL HCL ER 180 MG CR-TABS 1 tab po bid VERAPAMIL HCL ER 180 MG CR-TABS VERAPAMIL HCL Inactive LORATADINE 10 MG TABS 1 tab po qd LORATADINE 10 MG TABS 667045 LORATADINE Inactive LYRICA 50 MG CAPS 1 tab po TID LYRICA 50 MG CAPS PREGABALIN Inactive ZALEPLON 10 MG CAPS 1 cap po every other night ZALEPLON 10 MG CAPS 245088 ZALEPLON Inactive SAPHRIS 5 MG SUBL 1 tab po qd SAPHRIS 5 MG SUBL ASENAPINE MALEATE Inactive TRAZODONE HCL 50 MG TABS 1/2 tab po qd prn for anxiety TRAZODONE HCL 50 MG TABS 871673 TRAZODONE HCL Inactive LATUDA 20 MG TABS Take one by mouth daily LATUDA 20 MG TABS LURASIDONE HCL Inactive LISINOPRIL 20 MG TABS 1 tab po qd LISINOPRIL 20 MG TABS 982127 LISINOPRIL Inactive SAPHRIS 10 MG SUBL 1 [...] twice daily BACTRIM DS 800-160 MG TAB 209085 TRIMETHOPRIM-SULFAMETHOXAZOLE Inactive MULTIVITAMINS CAPS Take one by mouth daily MULTIVITAMINS CAPS MULTIPLE VITAMIN Inactive MELATONIN 3 MG CAPS 2 po q hs MELATONIN 3 MG CAPS 19950526 MELATONIN Inactive KEFLEX 500 MG ORAL CAPS 1 cap QID by mouth KEFLEX 500 MG ORAL CAPS 652765 CEPHALEXIN Inactive CLINDAMYCIN HCL 150 MG CAPS 1 four times a day CLINDAMYCIN HCL 150 MG CAPS 841635 CLINDAMYCIN HCL Inactive DIFLUCAN 150 MG TAB 1 tablet by mouth daily DIFLUCAN 150 MG TAB 539444 FLUCONAZOLE Inactive PROZAC 20 MG CAP Take one by mouth daily PROZAC 20 MG CAP 378917 FLUOXETINE HCL Inactive IBUPROFEN 600 MG TAB 1 po TID PRN IBUPROFEN 600 MG TAB 092934 IBUPROFEN Inactive VYVANSE 40 MG CAPS 1 daily, VYVANSE 40 MG CAPS LISDEXAMFETAMINE DIMESYLATE Inactive TRAZODONE HCL 100 MG TAB take 1 at bedtime TRAZODONE HCL 100 MG TAB 958596 TRAZODONE HCL Inactive AMITRIPTYLINE HCL 100 MG TAB one at hs AMITRIPTYLINE HCL 100 MG TAB 085173 AMITRIPTYLINE HCL Inactive AMLODIPINE BESYLATE 5 MG TABS 1 tablet by mouth daily AMLODIPINE BESYLATE 5 MG TABS 849036 AMLODIPINE BESYLATE Inactive LATUDA 80 MG TABS Take one by mouth daily LATUDA 80 MG TABS LURASIDONE HCL Inactive SAPHRIS 5 MG SUBL 1 po bid SAPHRIS 5 MG SUBL ASENAPINE MALEATE Inactive PREDNISONE 20 MG TAB 2 tabs daily for 4 days, 1 tab daily for 4 days, 1/2 tab daily for 4 days PREDNISONE 20 MG TAB 100434 PREDNISONE Inactive AMBIEN 5 MG ORAL TABS 1 tab at bedtime AMBIEN 5 MG ORAL TABS 651267 ZOLPIDEM TARTRATE Inactive PROZAC 20 MG ORAL CAPS 1 tab daily PROZAC 20 MG ORAL CAPS 695846 FLUOXETINE HCL Inactive ABILIFY 15 MG ORAL TABS 1 tab daily ABILIFY 15 MG ORAL TABS 774891 ARIPIPRAZOLE Inactive METOPROLOL TARTRATE 50 MG TAB 1 po bid METOPROLOL TARTRATE 50 MG TAB 559260 METOPROLOL TARTRATE Inactive TRAMADOL HCL 50 MG TABS 1-2 po TID PRN Pain TRAMADOL HCL 50 MG TABS 013080 TRAMADOL HCL Inactive PIROXICAM 20 MG CAPS 1 cap po qd PRN Pain PIROXICAM 20 MG CAPS 583537 PIROXICAM Inactive MINIPRESS 2 MG CAPS 4 cap po at night MINIPRESS 2 MG CAPS 941962 PRAZOSIN HCL Inactive MIRALAX PACK 1 po qd PRN Constipation MIRALAX PACK 650008 POLYETHYLENE GLYCOL 3350 Inactive METOPROLOL TARTRATE 25 MG ORAL TABS 1/2 tablet twice daily for heart rate and blood pressure METOPROLOL TARTRATE 25 MG ORAL TABS 070549 METOPROLOL TARTRATE Inactive VALIUM 5 MG TAB Take 1-2 tablets daily VALIUM 5 MG TAB 984019 DIAZEPAM Inactive FLAGYL 500 MG TAB 1 tablet by mouth bid FLAGYL 500 MG TAB 665695 METRONIDAZOLE Inactive DICLOFENAC POTASSIUM TABS Take 1 tablet twice a day (pt. is not sure of the dose.) DICLOFENAC POTASSIUM TABS DICLOFENAC POTASSIUM TABS Inactive ZITHROMAX Z-EARNEST 250 MG TABS 2 today and then 1 daily for 4 days ZITHROMAX Z-EARNEST 250 MG TABS 6618726 AZITHROMYCIN Inactive PREDNISONE 20 MG TABS 2 daily for 5 days then 1 daily for 5 days PREDNISONE 20 MG TABS 238159 PREDNISONE Inactive PROAIR HFA 108 (90 BASE) MCG/ACT AERS 2 puffs four times a day as needed 2015 PROAIR HFA 108 (90 BASE) MCG/ACT AERS ALBUTEROL SULFATE Inactive HYDROCODONE-ACETAMINOPHEN 5-325 MG TABS 1 to 2 four times a day as needed for pain use until can be seen by specialist HYDROCODONE- ACETAMINOPHEN 5-325 MG TABS 655836 HYDROCODONE-ACETAMINOPHEN Inactive TESSALON PERLES 100 MG CAP 1 to 2 tablets by mouth 3 times daily as needed for cough TESSALON PERLES 100 MG CAP 872743 BENZONATATE Inactive CEFDINIR 300 MG CAPS by mouth twice a day CEFDINIR 300 MG CAPS 569171 CEFDINIR Inactive PREDNISONE 20 MG TAB 2 tabs daily for 3 days, 1 tab daily for 3 days, 1/2 tab daily for 2 days PREDNISONE 20 MG TAB 952602 PREDNISONE Inactive BACTRIM DS 800-160 MG TABS 1 po BID x 7 days BACTRIM DS 800-160 MG TABS 19820521 SULFAMETHOXAZOLE-TRIMETHOPRIM Inactive DIFLUCAN 150 MG TABS 1 pill every other day x 2 doses DIFLUCAN 150 MG TABS 684981 FLUCONAZOLE Inactive BACTRIM DS 800-160 MG TABS 1 pill by mouth twice daily BACTRIM DS 800-160 MG TABS 19820521 SULFAMETHOXAZOLE-TRIMETHOPRIM Inactive KEFLEX 500 MG CAP 1 po TID x 10 days KEFLEX 500 MG CAP 878307 CEPHALEXIN Inactive Advance Directives Directive Description Start [...] % 11.6-14.8 platelet count 394 10^3/MM^3 10*3/mm3 238-888 4628/01/11 leukocyte count, blood 13.8 10^3/MM^3 10*3/mm3 4.6-10.2 mean corpuscular hemoglobin concentration, RBC 33.6 G/DL % 31.8- 35.4 red blood cell distribution width 14.4 % 11.6-14.8 platelet count 390 10^3/MM^3 10*3/mm3 881-578 9566/01/11 erythrocyte (RBC) count 4.46 10^6/MM^3 10*6/mm3 4.04-5.48 hemoglobin, blood 14.0 g/dL 12.0-16.0 hematocrit, blood 41.8 % 36.0-46.0 mean corpuscular volume, RBC 94 fL 80-97 mean corpuscular hemoglobin, RBC 31.5 pg 27.0-31.2 Lab Report: CBC W/DIFF - Hematology leukocyte [...] Panel - Chemistry sodium, serum 139 mmol/L 511-524 9128/12/03 carbon dioxide, venous blood 28.5 mmol/L 21.0-32.0 [...] 5.5 % 4.3-6.0 cholesterol, serum 159 mg/dL 425-864 7282/12/03 triglyceride, serum, fasting 118 mg/dL 30-200 HDL [...] 362 10^3/MM^3 10*3/mm3 142-424 Lab Report: Chlamydia/GC APTIMA/[id number] - Lab chlamydia DNA probe NOT DETECTED NOT DETECTED Lab Report: Chlamydia/GC [facility]TIMA/[id number] - Microbiology Neisseria gonorrhoeae DNA probe NOT DETECTED NOT DETECTED Lab Report: Comp. Metabolic Panel - Chemistry carbon dioxide, venous blood 27.6 mmol/L 21.0-32.0 potassium, serum 4.0 mmol/L 3.5-5.2 chloride, serum 105 mmol/L 98-107 blood glucose 95 mg/dL 65-110 urea nitrogen, blood 8 mg/dL 7-18 sodium, serum 140 mmol/L 465-858 5539/08/08 creatinine, serum 0.88 mg/dL 0.55-1.30 alanine aminotransferase (SGPT), serum 54 U/L - aspartate aminotransferase (SGOT), serum 29 U/L 15-37 calcium, serum 9.7 mg/dL 8.5-10.1 bilirubin, serum, total 0.30 mg/dL 0.00-1.00 carbon dioxide, venous blood 33.7 mmol/L 21.0-32.0 potassium, serum 5.0 mmol/L 3.5-5.2 chloride, serum 103 mmol/L 98-107 blood glucose 80 mg/dL 65-110 urea nitrogen, blood 13 mg/dL - sodium, serum 142 mmol/L 785-007 9459/06/08 creatinine, serum 0.75 mg/dL 0.55-1.30 alanine aminotransferase (SGPT), serum 49 U/L aspartate aminotransferase (SGOT), serum 28 U/L - calcium, serum 9.4 mg/dL 8.5-10.1 bilirubin, serum, total 0.30 mg/dL 0.00-1.00 sodium, serum 139 mmol/L 412-032 3627/01/11 carbon dioxide, venous blood 26.6 mmol/L 21.0-32.0 potassium, serum 4.1 mmol/L 3.5-5.2 chloride, serum 100 mmol/L 98-107 blood glucose 86 mg/dL 65-110 urea nitrogen, blood 16 mg/dL - creatinine, serum 1.00 mg/dL 0.55-1.30 alanine aminotransferase (SGPT), serum 48 U/L aspartate aminotransferase (SGOT), serum 17 U/L - calcium, serum 9.1 mg/dL 8.5-10.1 bilirubin, serum, total 0.40 mg/dL 0.00-1.00 sodium, serum 139 mmol/L 613-488 6530/12/22 carbon dioxide, venous blood 26.8 mmol/L 21.0-32.0 potassium, serum 4.2 mmol/L 3.5-5.2 chloride, serum 103 mmol/L 98-107 blood glucose 115 mg/dL 65-110 urea nitrogen, blood 20 mg/dL 7-18 creatinine, serum 0.90 mg/dL 0.55-1.30 alanine aminotransferase (SGPT), serum 38 U/L 78 aspartate aminotransferase (SGOT), serum 19 U/L 15-37 calcium, serum 8.6 mg/dL 8.5-10.1 bilirubin, serum, total 0.30 mg/dL 0.00-1.00 Lab Report: Comp. Metabolic Panel, Erythrocyte Sed Rate - Chemistry sodium, serum 139 mmol/L 740-213 9245/12/11 carbon dioxide, venous blood 25.4 mmol/L 21.0-32.0 [...] strip Negative Negative bilirubin, urine Negative Negative pH, urine, semiquantitative 6.0 5.0-8.5 specific gravity, urine 1.025 1.000-1.030 appearance, [...] mg/dL Encounters Code Encounter Date Provider Facility CPT-47119 Level 3 Est. Patient 13:59:59 CDT 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 [facility] CPT-23469 Level 3 Est. Patient 18:18:53 CDT Neeraj Collins MD [facility] CPT-99822 Level 3 Est. Patient 15:50:44 CDT Vishal Hui MD [facility] CPT-50847 Level 3 Est. Patient 11:36:17 CDT Ahmet Carbajal MD [facility] CPT-55056 Level 3 Est. Patient 13:29:16 CDT Vishal Hui MD [facility] CPT-83542 Level 3 Est. Patient 14:27:52 CDT Neeraj Collins MD [facility] CPT-13113 Level 3 Est. Patient 08:56:03 CDT 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 [facility] CPT-83959 Level 4 Est. Patient 12:11:48 CDT Fabiola Johnson [facility] CPT-06247 Level 3 New Patient 16:53:37 CDT Albert Caldera MD [facility] CPT-27519 Level 3 Est. Patient 11:25:49 CDT Renzo Thornton DO [facility] CPT-02488 Level 3 Est. Patient 15:22:01 CDT Ahmet Carbajal MD [facility] CPT-73769 Level 4 Est. Patient 09:00:51 DIRECTOR OF MARKET RESEARCH Vishal Hui MD [facility] CPT-10846 Level 3 Est. Patient 11:37:33 DIRECTOR OF MARKET RESEARCH Vishal Hui MD [facility] CPT-33303 Level 3 Est. Patient 08:41:09 DIRECTOR OF MARKET RESEARCH Vishal Hui MD [facility] CPT-40882 Level 4 Est. Patient 10:19:35 DIRECTOR OF MARKET RESEARCH Vishal Hui MD [facility] CPT-55266 Level 3 Est. Patient 13:35:45 CDT Vishal Hui MD [facility] CPT-21817 Level 4 Est. Patient 10:08:37 CDT Vishal Hui MD [facility] CPT-24972 Level 3 Est. Patient 11:22:10 CDT Vishal Hui MD [facility] CPT-85600 Level 3 Est. Patient 11:03:32 CDT Sahara Rodriguez MD [facility]-79113 Level 3 Est. Patient 09:41:35 CDT Vishal Hui MD [facility] CPT-15164 Level 3 Est. Patient 12:00:41 CDT Neeraj Collins MD [facility]-19935 Level 3 Est. Patient 09:16:24 CDT Vishal Hui MD [facility] CPT-88312 Level 4 Est. Patient 13:59:09 CDT Neeraj Collins MD [facility]-36158 Level 3 Est. Patient 15:19:43 CDT Renzo Thornton DO [facility] CPT-24377 Level 3 Est. Patient 18:10:26 CDT Sahara Rodriguez MD [facility]-83449 Level 3 Est. Patient 14:49:50 CDT Vishal Hui MD [facility] CPT-10277 Level 4 Est. Patient 18:41:46 CDT Neeraj Collins MD [facility] CPT-68379 Level 4 Est. Patient 09:18:38 DIRECTOR OF MARKET RESEARCH Vishal Hui MD [facility] CPT-31457 Level 3 Est. Patient 14:43:55 DIRECTOR OF MARKET RESEARCH Vishal Hui MD [facility] CPT-21112 Level 3 Est. Patient 15:26:33 DIRECTOR OF MARKET RESEARCH Sahara Rodriguez MD PhD [facility]-97642 Level 3 Est. Patient 10:32:14 DIRECTOR OF MARKET RESEARCH Vishal Hui MD [facility] CPT-61239 Level 3 Est. Patient 15:12:52 DIRECTOR OF MARKET RESEARCH Vishal Hui MD [facility] CPT-87609 Level 4 Est. Patient 09:19:27 CDT Vishal Hui MD [facility] CPT-05040 Level 3 Est. Patient 15:53:00 CDT Renzo Thornton [facility] CPT-18382 Level 3 Est. Patient 15:50:30 CDT Renzo Thornton [facility] CPT-68775 Level 3 Est. Patient 16:55:24 CDT Vishal Hui MD [facility] Procedures Code Procedure Name Date Entry Date Standard Description CPT-12346 UA w micro - LAB USE ONLY 16:21:13 CDT CPT-07316 Wet Mount - LAB USE ONLY 16:21:13 CDT CPT-29876 First Vx - Ix admin for Medicare patients 14:37:47 CDT CPT-60256 Fluzone Preservative Free Intramuscular Suspension 14:37 :47 CDT CPT-00670 Abx/Therapy Injection 13:54:22 CDT CPT-40511 Abx/Therapy Injection 08:47:09 CDT CPT-29308 Abx/Therapy Injection 13:29:56 CDT CPT-99284 Abx/Therapy Injection 08:36:16 CDT CPT-33295 Wet Mount - LAB USE ONLY 17:44:58 CDT CPT-93318 UA w micro - LAB USE ONLY 17:44:58 CDT CPT-41869 CMP - LAB USE ONLY 17:44:58 CDT CPT-01589 Venipuncture Draw Fee 17:44:58 CDT CPT-68879 Cervical Min 4V - XRAY USE ONLY 09:01:40 CDT CPT-77513 Chest 2V Frontal and Lat - XRAY USE ONLY 11:06:31 CDT CPT-36075 EKG Trac and Interp - XRAY USE ONLY 11:31:43 CDT 08/26 CPT-J3420 Vitamin B12 1000mcg (Cyanocobalamin) 08:10:26 DIRECTOR OF MARKET RESEARCH 04/12 CPT-51157 Abx/Therapy Injection 08:10:26 DIRECTOR OF MARKET RESEARCH CPT-G0438 Initial Annual Wellness Exam 19:01:01 DIRECTOR OF MARKET RESEARCH CPT-J3420 Vitamin B12 1000mcg (Cyanocobalamin) 16:57:46 CDT 08/14 CPT-97413 Recombivax HB Injection Suspension 5 MCG/0.5ML 08:37:50 DIRECTOR OF MARKET RESEARCH CPT-76184 Immunization Single Admin 08:37:50 DIRECTOR OF MARKET RESEARCH CPT-J3420 Vitamin B12 1000mcg (Cyanocobalamin) 08:32:16 DIRECTOR OF MARKET RESEARCH 03/11 CPT-61665 Abx/Therapy Injection 08:32:16 DIRECTOR OF MARKET RESEARCH CPT-21688 Chest 2V Frontal and Lat 11:46:38 DIRECTOR OF MARKET RESEARCH CPT-71534 Venipuncture Draw Fee 09:12:45 DIRECTOR OF MARKET RESEARCH CPT-J3420 Vitamin B12 1000mcg (Cyanocobalamin) 08:50:15 DIRECTOR OF MARKET RESEARCH 02/08 CPT-52693 Abx/Therapy Injection 08:50:15 DIRECTOR OF MARKET RESEARCH CPT-Cryo Cryotherapy 10:19:35 DIRECTOR OF MARKET RESEARCH CPT-000 Give Appropriate Flu Vaccine 09:22:16 CDT CPT-J3420 Vitamin B12 1000mcg (Cyanocobalamin) 19:08:57 CDT 01/11 CPT-70227 Abx/Therapy Injection 19:08:57 CDT CPT-J3420 Vitamin B12 1000mcg (Cyanocobalamin) 08:19:08 CDT 12/11 CPT-22666 Abx/Therapy Injection 08:19:08 CDT CPT-J3420 Vitamin B12 1000mcg (Cyanocobalamin) 14:48:00 CDT 11/09 CPT-19214 Abx/Therapy Injection 14:47:59 CDT CPT-J3420 Vitamin B12 1000mcg (Cyanocobalamin) 08:34:04 CDT 10/09 CPT-30194 Abx/Therapy Injection 08:34:04 CDT CPT-J3420 Vitamin B12 1000mcg (Cyanocobalamin) 09:18:52 CDT 09/11 CPT-53065 Abx/Therapy Injection 09:18:52 CDT CPT-J3420 Vitamin B12 1000mcg (Cyanocobalamin) 08:35:44 CDT 09/04 CPT-38290 Abx/Therapy Injection 08:35:44 CDT CPT-08097 Immunization Single Admin 11:07:16 CDT CPT-47227 Hepatitis B adult IM 11:07:16 CDT CPT-J3420 Vitamin B12 1000mcg (Cyanocobalamin) 11:00:49 CDT 08/28 CPT-J1040 Depo Medrol 80 mg (Methyl Prednisolone Acetate) 11:00: 49 CDT CPT-51732 Abx/Therapy Injection 11:00:49 CDT CPT-J1040 Depo Medrol 80 mg (Methyl Prednisolone Acetate) 09:16: 23 CDT CPT-J3420 Vitamin B12 1000mcg (Cyanocobalamin) 08:27:05 CDT 08/20 CPT-62231 Abx/Therapy Injection 08:27:05 CDT CPT-76713 Recombivax HB Injection Suspension 5 MCG/0.5ML 10:00:41 CDT CPT-68968 Administration single or combination vaccine inc oral 10 :00:41 CDT CPT-40172 Sono transvag pelvis non OB uterus ovaries cervix 16:36: 57 CDT CPT-57257 LS spine comp w obliq 09:50:55 DIRECTOR OF 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 CPT-54352 Abd compl w upright 09:50:55 DIRECTOR OF MARKET RESEARCH CPT-J1100 Decadron 4mg (Dexamethasone) 15:51:24 DIRECTOR OF MARKET RESEARCH CPT-J1030 Depo Medrol 40 mg (Methyl Prednisolone Acetate) 15:51: 24 DIRECTOR OF MARKET RESEARCH CPT-72004 Abx/Therapy Injection 15:51:24 DIRECTOR OF MARKET RESEARCH CPT-J1100 Decadron 4mg (Dexamethasone) 15:26:33 DIRECTOR OF MARKET RESEARCH CPT-J1030 Depo Medrol 40 mg (Methyl Prednisolone Acetate) 15:26: 33 DIRECTOR OF MARKET RESEARCH CPT-01191 Sono retroperitoneal complete kidneys and bladder 17:15: 30 CDT CPT-80492 Abd compl w upright 16:09:25 CDT CPT-J1100 Decadron 8mg (Dexamethasone) 17:07:57 CDT CPT-24439 Abx/Therapy Injection 17:07:57 CDT CPT-J1100 Decadron 8mg (Dexamethasone) 16:55:24 CDT CPT-89438 Chest 2V Frontal and Lat 16:32:44 CDT
--- OUTSIDE RECORDS SUMMARY | 2016-11-04 11:50 | XMS REPORT | Clinical Summary ---
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 Juliet Kimbrough FILENET ADMIN Dependence on other enabling machines and devices [...] Active Ahmet Carbajal MD Generalized anxiety disorder Checkout Supervisor well woman exam V72.31 Resolved Suzan Boo [...] Vishal Hui MD UTI ICD-599.0 Inactive Vishal Hiu MD Headache, atypical ICD-784.0 Inactive Albert Caldera [...] Upper respiratory infection ICD-465.9 Inactive Suzan Boo FILENET ADMIN Other fracture of upper and lower end [...] Bronchitis, acute ICD-466.0 Inactive Ahmet Carbajal MD Checkout Supervisor well woman exam ICD-V72.31 Inactive Suzan Rajeev FILENET ADMIN Bronchitis, acute with mild bronchospasm ICD-466.0 Inactive Suzan Rajeev FILENET ADMIN Tracheitis ICD-464.10 Inactive Suzan Boo FILENET ADMIN Impetigo ICD-684 Inactive Suzan Boo FILENET ADMIN Furuncle of buttock ICD-680.5 Inactive Suzan Boo FILENET ADMIN Vaginal irritation ICD-623.9 Inactive Suzan Boo FILENET ADMIN Scalding pain on urination ICD-788.1 Inactive Suzan Boo APRN Abdominal pain, right upper quadrant ICD-789.01 Inactive Suzan Boo FILENET ADMIN Dark urine ICD-791.9 Inactive Suzan Boo APRN Preop exam ICD-V72.84 Inactive Suzan Rajeev WALTERSN Medication List Medication Instructions Start Date Stop Date Generic Name ND Status Provider Patient Instruction NYSTATIN [id number] UNIT/GM CREA apply three times a day to yeast rash NYSTATIN [id number] Active Suzan Boo APRN Active AMITIZA 24 MCG ORAL CAPS one capsule twice daily LUBIPROSTONE 73849837087 Active Suzan Boo APRN Active MIRALAX ORAL POWD 17GMS DAILY IN WATER POLYETHYLENE GLYCOL 3350 36810226148 No Longer Active Suzan Boo APRN Active LACTULOSE 10 GM/15ML ORAL SOLN 30mL oral BID for IBS-C LACTULOSE 33735406923 No Longer Active Suzan Boo APRN Active BACTRIM DS 800-160 MG TAB Take one (1) tablet by mouth twice a day for 5 days TRIMETHOPRIM-SULFAMETHOXAZOLE 85540622661 No Longer Active Suzan Boo APRN Active MUPIROCIN 2 % OINT apply twice a day MUPIROCIN 29260689865 No Longer Active Suzan Boo APRN Active BACTRIM DS 800-160 MG TABS 1 twice a day SULFAMETHOXAZOLE-TRIMETHOPRIM 40817009571 No Longer Active Suzan Boo APRN Active DIFLUCAN 150 MG TABS 1 by mouth for yeast FLUCONAZOLE 88322280990 No Longer Active Suzan Boo APRN Active LINZESS 290 MCG ORAL CAPS 1 tab 30 min prior to first meal each day. LINACLOTIDE 18582485963 No Longer Active Sheila Calderon LPN Active AMITIZA 8 MCG ORAL CAPS 1 tab BID LUBIPROSTONE 40901406326 No Longer Active Lynda Xiao SYSTEM DEVELOPER ASSOCIATE MANAGER Active TESSALON PERLES 100 MG CAPS 1 three times a day as needed for cough BENZONATATE 06197322768 No Longer Active Suzan Boo APRN Active BACTRIM DS 800-160 MG TABS 1 twice a day SULFAMETHOXAZOLE-TRIMETHOPRIM 35746494796 No Longer Active Suzan Boo APRN Active DIFLUCAN 150 MG TABS 1 by mouth for yeast FLUCONAZOLE 55632639418 No Longer Active Suzan Boo APRN Active EQ NICOTINE 21 MG/24HR TRANS PT24 Apply daily to stop smoking NICOTINE 94552863312 No Longer Active Suzan Boo APRN Active PREDNISONE 10 MG TABS 2 daily for 5 days then 1 daily for 5 days PREDNISONE 14543255642 No Longer Active Suzan Boo APRN Active LEVAQUIN 500 MG TABS 1 daily for infection LEVOFLOXACIN 81452623044 No Longer Active Suzan Boo APRN Active TROPICAMIDE 0.5 % OPHTH SOLN 1 drop PRN eye spasms TROPICAMIDE 47355704363 No Longer Active Suzan Boo APRN Active PREDNISONE 20 MG TAB 1 tablet daily x 4 days PREDNISONE 57576953788 No Longer Active Suzan Boo APRN Active ACETAMINOPHEN-CODEINE 120-12 MG/5ML SOLN 5 ml by mouth every 4-6 hours if needed for cough ACETAMINOPHEN-CODEINE 78688310593 No Longer Active Suzan Boo APRN Active KEFLEX 500 MG CAP 1 po qid CEPHALEXIN 41160386327 No Longer Active Suzan Boo APRN Active FLOVENT HFA 110 MCG/ACT AERO 2 puffs inhaled b.i.d. FLUTICASONE PROPIONATE HFA 68896190752 Active Renzo Thornton DO Active RISPERDAL 4 MG ORAL TABS 1 tab at bedtime RISPERIDONE 89684816103 Active Samantha Rothman RMA Active ZOFRAN 4 MG TABS 1 po q6hr PRN Nausea ONDANSETRON HCL No Longer Active Suzan Boo APRN Active FLUTICASONE PROPIONATE 50 MCG/ACT SUSP 2 sprays each nostril daily before bed. FLUTICASONE PROPIONATE 28504011846 No Longer Active Suzan Boo APRN Active ASPIRIN 325 MG ORAL TABS 1 tab q.d ASPIRIN 01905314709 No Longer Active Suzan Boo APRN Active HALOPERIDOL 10 MG ORAL TABS 1 tab q.d HALOPERIDOL 24299364418 No Longer Active Suzan Boo APRN Active GUAIFENESIN-CODEINE 100-10 MG/5ML SYRP 5ml every 4 to 6 hours as needed for cough GUAIFENESIN-CODEINE 59257985428 No Longer Active Suzan Boo APRN Active ZITHROMAX Z-EARNEST 250 MG TABS 2 today and then 1 daily for 4 days AZITHROMYCIN 84971939115 No Longer Active Suzan Boo APRN Active CLONAZEPAM 1 MG ORAL TABS 1 twice a day and an additional 1 tablet every other day as needed for pseudoseizures or anxiety CLONAZEPAM 27460843815 Active Suzan Boo APRN Active HYDROCODONE-ACETAMINOPHEN 5-325 MG ORAL TABS 1 tab two times a day HYDROCODONE-ACETAMINOPHEN 25435467173 No Longer Active Ahmet Carbajal MD Active LAMICTAL 100 MG ORAL TABS 1 tab 2 times qd. LAMOTRIGINE 69578337417 Active Ahmet Carbajal MD Active PREDNISONE 20 MG TABS 2 daily for 5 days then 1 daily for 5 days PREDNISONE 99194755569 No Longer Active Ahmet Carbajal MD Active FLUTICASONE PROPIONATE 50 MCG/ACT SUSP 1 to 2 sprays each nostril daily for allergies FLUTICASONE PROPIONATE 12151853312 Active Tila Valenzuela Active BENADRYL 25 MG CAP 4 po at bedtime for insomnia DIPHENHYDRAMINE HCL 17224850128 No Longer Active Ahmet Carbajal MD Active ADVAIR DISKUS 250-50 MCG/DOSE INH AEPB 1 puff twice a day for asthma FLUTICASONE-SALMETEROL 15296729654 No Longer Active Ahmet Carbajal MD Active KLONOPIN 1 MG ORAL TABS 1 tab po TID CLONAZEPAM 80243310539 No Longer Active Ahmet Carbajal MD Active ABILIFY MAINTENA 400 MG IM SUSR 400mg injection every 26 days ARIPIPRAZOLE 76782666489 No Longer Active Ahmet Carbajal MD Active TRAMADOL HCL 50 MG TABS 1/2-1 tab TID PRN TRAMADOL HCL 91959594194 No Longer Active Ahmet Carbajal MD Active BACTRIM DS 800-160 MG TABS 1 twice a day SULFAMETHOXAZOLE- TRIMETHOPRIM 03816744236 No Longer Active Ahmet Carbajal MD Active PROAIR HFA 108 (90 BASE) MCG/ACT AERS 2 puffs four times a day as needed 2015 ALBUTEROL SULFATE 56130681639 Active Honey Hinton FILENET ADMIN Active MONISTAT 7 COMBO PACK WOODROW 100 & 2 MG-% (9GM) VAG KIT 1 applicatorful per vagina q pm x 7 MICONAZOLE NITRATE 94812914187 No Longer Active Ahmet Carbajal MD Active FLAGYL 500 MG TAB 1 tablet by mouth bid METRONIDAZOLE 20186592823 No Longer Active Ahmet Carbajal MD Active OXYCODONE HCL ER 10 MG ORAL T12A 1/2 tab by mouth every 4 hours prn OXYCODONE HCL 92375362589 No Longer Active Ahmet Carbajal MD Active METHYLPREDNISOLONE 4 MG ORAL TABS po daily METHYLPREDNISOLONE 50354041993 No Longer Active Ahemt Carbajal MD Active LEVOFLOXACIN 500 MG ORAL TABS po daily LEVOFLOXACIN 35537172136 No Longer Active Ahmet Carbajal MD Active VIIBRYD 10 MG ORAL TABS Take 1 tablet once a day VILAZODONE HCL 15817452871 No Longer Active Ahmet Carbajal MD Active TOPAMAX 50 MG ORAL TABS 1 tab twice daily TOPIRAMATE 45739714735 No Longer Active Ahmet Carbajal MD Active DICLOFENAC SODIUM 50 MG TBEC 1 tablet by mouth four times daily PRN Pain 2015 DICLOFENAC SODIUM 80642299907 No Longer Active Ahmet Carbajal MD Active ADZENYS XR-ODT 6.3 MG ORAL TBED 1 tab po daily for ADHD AMPHETAMINE 01856758984 No Longer Active Ahmet Carbajal MD Active CHANTIX 1 MG TABS 1 twice a day to help quit smoking VARENICLINE TARTRATE 52458507464 No Longer Active Dipika Burgos MD Active CHANTIX STARTING MONTH EARNEST 0.5 MG X 11 & 1 MG X 42 TABS take as directed 2015 VARENICLINE TARTRATE 17885660865 No Longer Active Dipika Burgos MD Active TESSALON PERLES 100 MG CAP 1 to 2 tablets by mouth 3 times daily as needed for cough BENZONATATE 00176506685 No Longer Active 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 APRN Active IMITREX 50 MG ORAL TABS 0.5 po x 1 PRN Headache. May repeat dose x 1 in 2 hours if needed SUMATRIPTAN SUCCINATE 05938688808 Active Ahmet Carbajal MD Active HYDROCODONE-ACETAMINOPHEN 5-325 MG TABS 1 to 2 four times a day as needed for pain use until can be seen by specialist HYDROCODONE- ACETAMINOPHEN 51559303295 No Longer Active Vishal Hui MD Active PROAIR HFA 108 (90 BASE) MCG/ACT AERS 2 puffs four times a day as needed 2015 ALBUTEROL SULFATE 38235015231 No Longer Active Vishal Hui MD Active PREDNISONE 20 MG TABS 2 daily for 5 days then 1 daily for 5 days PREDNISONE 66600645387 No Longer Active Vishal Hui MD Active ZITHROMAX Z-EARNEST 250 MG TABS 2 today and then 1 daily for 4 days AZITHROMYCIN 52226136633 No Longer Active Vishal Hui MD Active DICLOFENAC POTASSIUM TABS Take 1 tablet twice a day (pt. is not sure of the dose.) DICLOFENAC POTASSIUM TABS 56313070468 No Longer Active Vishla Hui MD Active VERAPAMIL HCL ER 120 MG ORAL CR-TABS Take 1 tablet by mouth twice a day. VERAPAMIL HCL 89343907435 Active Vishal Hui MD Active FLAGYL 500 MG TAB 1 tablet by mouth bid METRONIDAZOLE 30491028417 No Longer Active Vishal Hui MD Active VALIUM 5 MG TAB Take 1-2 tablets daily DIAZEPAM 03313047568 No Longer Active Fabiola Johnson APRN Active METOPROLOL TARTRATE 25 MG ORAL TABS 1/2 tablet twice daily for heart rate and blood pressure METOPROLOL TARTRATE 11568336140 No Longer Active Fabiola Johnson APRN Active MIRALAX PACK 1 po qd PRN Constipation POLYETHYLENE GLYCOL 3350 05421900311 No Longer Active Ahmet Carbajal MD Active MINIPRESS 2 MG CAPS 4 cap po at night PRAZOSIN HCL 06914546542 No Longer Active Ahmet Carbajal MD Active PIROXICAM 20 MG CAPS 1 cap po qd PRN Pain PIROXICAM 93912426343 No Longer Active Ahmet Carbajal MD Active TRAMADOL HCL 50 MG TABS 1-2 po TID PRN Pain TRAMADOL HCL 51521473166 No Longer Active Ahmet Carbajal MD Active METOPROLOL TARTRATE 50 MG TAB 1 po bid METOPROLOL TARTRATE 89851462767 No Longer Active Ahmet Carbajal MD Active ABILIFY 15 MG ORAL TABS 1 tab daily ARIPIPRAZOLE 42954490083 No Longer Active Ahmet Carbajal MD Active PROZAC 20 MG ORAL CAPS 1 tab daily FLUOXETINE HCL 62832693135 No Longer Active Ahmet Carbajal MD Active AMBIEN 5 MG ORAL TABS 1 tab at bedtime ZOLPIDEM TARTRATE 97230680579 No Longer Active Ahmet Carbajal MD Active PREDNISONE 20 MG TAB 2 tabs daily for 4 days, 1 tab daily for 4 days, 1/2 tab daily for 4 days PREDNISONE 11556834837 No Longer Active Ahmet Carbajal MD Active KEFLEX 500 MG CAP 1 po TID x 10 days CEPHALEXIN 24015923687 No Longer Active Vishal Hui MD Active SAPHRIS 5 MG SUBL 1 po bid ASENAPINE MALEATE 20869374239 No Longer Active 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 APRN Active LATUDA 80 MG TABS Take one by mouth daily LURASIDONE HCL 87145827774 No Longer Active Pacolljanee Martínez APRN Active AMLODIPINE BESYLATE 5 MG TABS 1 tablet by mouth daily AMLODIPINE BESYLATE 15758879557 No Longer Active Pacollina Frazell FILENET ADMIN Active AMITRIPTYLINE HCL 100 MG TAB one at hs AMITRIPTYLINE HCL 90891796406 No Longer Active Vishal Hui MD Active TRAZODONE HCL 100 MG TAB take 1 at bedtime TRAZODONE HCL 83509411259 No Longer Active Vishal Hui MD Active VYVANSE 40 MG CAPS 1 daily, LISDEXAMFETAMINE DIMESYLATE 51798012482 No Longer Active Vishal Hui MD Active IBUPROFEN 600 MG TAB 1 po TID PRN IBUPROFEN 00483838688 No Longer Active Vishal Hui MD Active PROZAC 20 MG CAP Take one by mouth daily FLUOXETINE HCL 52958852130 No Longer Active Vishal Hui MD Active BACTRIM DS 800-160 MG TABS 1 pill by mouth twice daily SULFAMETHOXAZOLE-TRIMETHOPRIM 62811736086 No Longer Active Sahara Rodriguez MD PhD Active DIFLUCAN 150 MG TAB 1 tablet by mouth daily FLUCONAZOLE 70347128104 No Longer Active Vishal Hui MD Active TIZANIDINE HCL 4 MG TABS 1 po q6hr PRN Muscle Spasm/Back Pain TIZANIDINE HCL 57253632171 Active TAMARA Casey Active CLINDAMYCIN HCL 150 MG CAPS 1 four times a day CLINDAMYCIN HCL 16581149118 No Longer Active Neeraj Collins MD Active KEFLEX 500 MG ORAL CAPS 1 cap QID by mouth CEPHALEXIN 18922647076 No Longer Active Neeraj Collins MD Active DIFLUCAN 150 MG TABS 1 pill every other day x 2 doses FLUCONAZOLE 38145140619 No Longer Active Sahara Rodriguez MD PhD Active MELATONIN 3 MG CAPS 2 po q hs MELATONIN 44683460097 No Longer Active Sahara Rodriguez MD PhD Active MULTIVITAMINS CAPS Take one by mouth daily MULTIPLE VITAMIN 15223862553 No Longer Active Sahara Rodriguez MD PhD Active BACTRIM DS 800-160 MG TAB 1 tab by mouth twice daily TRIMETHOPRIM-SULFAMETHOXAZOLE 22579761629 No Longer Active Sahara Rodriguez MD PhD Active [facility] PROBIOTIC ORAL CHEW 2 daily po PROBIOTIC PRODUCT 94999370706 No Longer Active Sahara Rodriguez MD PhD Active BACTRIM DS 800-160 MG TABS 1 po BID x 7 days SULFAMETHOXAZOLE-TRIMETHOPRIM 27631173431 No Longer Active Vishal Hui MD Active CHANTIX STARTING MONTH EARNEST 0.5 MG X 11 & 1 MG X 42 TABS 0.5mg daily for 3 days , then 0.5mg BID for 4 days, then 1mg BID VARENICLINE TARTRATE 67073599952 No Longer Active TAMARA Gray Active VERAPAMIL HCL CR 120 MG TAB CR 1 po bid VERAPAMIL HCL 78171525698 No Longer Active Vishal Hui MD Active METOPROLOL SUCCINATE 50 MG TB24 1 tablet by mouth daily METOPROLOL SUCCINATE 35117171554 No Longer Active Vishal Hui MD Active SAPHRIS 10 MG SUBL 1 tab po bid ASENAPINE MALEATE 34375098858 No Longer Active Vishal Hui MD Active LISINOPRIL 20 MG TABS 1 tab po qd LISINOPRIL 93731924275 No Longer Active Vishal Hui MD Active LATUDA 20 MG TABS Take one by mouth daily LURASIDONE HCL 51535906843 No Longer Active Vishal Hui MD Active TRAZODONE HCL 50 MG TABS 1/2 tab po qd prn for anxiety TRAZODONE HCL 03195602119 No Longer Active Vishal Hui MD Active OMEPRAZOLE 20 MG TBEC 1 po q a.m. 30min prior to first food intake OMEPRAZOLE 68501774533 Active TAMARA Casey Active RANITIDINE HCL 150 MG CAPS 1 twice a day RANITIDINE HCL 02456471915 Active Lynda Madl SYSTEM DEVELOPER ASSOCIATE MANAGER Active LINZESS 290 MCG CAPS Take one by mouth daily LINACLOTIDE 89083352903 No Longer Active Vishal Hui MD Active SAPHRIS 5 MG SUBL 1 tab po qd ASENAPINE MALEATE 01675635823 No Longer Active Vishal Hui MD Active ZALEPLON 10 MG CAPS 1 cap po every other night ZALEPLON 78443524837 No Longer Active Vishal Hui MD Active LYRICA 50 MG CAPS 1 tab po TID PREGABALIN 37691301324 No Longer Active Vishal Hui MD Active LORATADINE 10 MG TABS 1 tab po qd LORATADINE 81485820185 No Longer Active Vishal Hui MD Active VERAPAMIL HCL ER 180 MG CR-TABS 1 tab po bid VERAPAMIL HCL 99641059131 No Longer Active Vishal Hui MD Active MIRALAX POWD 1 capfull once daily POLYETHYLENE GLYCOL 3350 62391282786 No Longer Active Vishal Hui MD Active PREDNISONE 20 MG TABS 1 tab po qd PREDNISONE 00056545214 No Longer Active Renzo Thornton DO Active LEVOFLOXACIN 500 MG TABS 1 tab po qd LEVOFLOXACIN 59440011892 No Longer Active Renzo Thornton DO Active BUSPIRONE HCL 15 MG TABS 1 tab po TID BUSPIRONE HCL 41949668313 No Longer Active Renzo Thornton DO Active BENZTROPINE MESYLATE 1 MG TABS 1 tab po qd BENZTROPINE MESYLATE 02714360908 No Longer Active Renzo Thornton DO Active ATENOLOL 25 MG TABS 1 tab po qd ATENOLOL 36108673750 No Longer Active Renzo Thornton DO Active ESCITALOPRAM OXALATE 20 MG TABS 1 tab po qd ESCITALOPRAM OXALATE 30855701244 No Longer Active Renzo Thornton DO Active ADVAIR DISKUS 250-50 MCG/DOSE AEPB 1 puff BID FLUTICASONE-SALMETEROL 40293961062 No Longer Active Renzo Thornton DO Active PREDNISONE 20 MG TAB 2 tabs daily for 3 days, 1 tab daily for 3 days, 1/2 tab daily for 2 days PREDNISONE 09026707356 No Longer Active Vishal Hui MD Active CEFDINIR 300 MG CAPS by mouth twice a day CEFDINIR 87366887788 No Longer Active Vishal Hui MD Active LANSOPRAZOLE 30 MG CPDR 1 cap po qd LANSOPRAZOLE 49166333990 No Longer Active Vishal Hui MD Active BACLOFEN 20 MG TABS 1 tab po tid BACLOFEN 23765198545 No Longer Active Vishal Hui MD Active ADVAIR DISKUS 250-50 MCG/DOSE AEPB 1 puff BID ADVAIR DISKUS 250-50 MCG/DOSE AEPB FLUTICASONE-SALMETEROL Inactive ESCITALOPRAM OXALATE 20 MG TABS 1 tab po qd ESCITALOPRAM OXALATE 20 MG TABS 128383 ESCITALOPRAM OXALATE Inactive ATENOLOL 25 MG TABS 1 tab po qd ATENOLOL 25 MG TABS 735800 ATENOLOL Inactive BENZTROPINE MESYLATE 1 MG TABS 1 tab po qd BENZTROPINE MESYLATE 1 MG TABS 700687 BENZTROPINE MESYLATE Inactive BUSPIRONE HCL 15 MG TABS 1 tab po TID BUSPIRONE HCL 15 MG TABS 701887 BUSPIRONE HCL Inactive LEVOFLOXACIN 500 MG TABS 1 tab po qd LEVOFLOXACIN 500 MG TABS 700849 LEVOFLOXACIN Inactive PREDNISONE 20 MG TABS 1 tab po qd PREDNISONE 20 MG TABS 258260 PREDNISONE Inactive MIRALAX POWD 1 capfull once daily MIRALAX POWD 925046 POLYETHYLENE GLYCOL 3350 Inactive VERAPAMIL HCL ER 180 MG CR-TABS 1 tab po bid VERAPAMIL HCL ER 180 MG CR-TABS VERAPAMIL HCL Inactive LORATADINE 10 MG TABS 1 tab po qd LORATADINE 10 MG TABS 791376 LORATADINE Inactive LYRICA 50 MG CAPS 1 tab po TID LYRICA 50 MG CAPS PREGABALIN Inactive ZALEPLON 10 MG CAPS 1 cap po every other night ZALEPLON 10 MG CAPS 773423 ZALEPLON Inactive SAPHRIS 5 MG SUBL 1 tab po qd SAPHRIS 5 MG SUBL ASENAPINE MALEATE Inactive TRAZODONE HCL 50 MG TABS 1/2 tab po qd prn for anxiety TRAZODONE HCL 50 MG TABS 813885 TRAZODONE HCL Inactive LATUDA 20 MG TABS Take one by mouth daily LATUDA 20 MG TABS LURASIDONE HCL Inactive LISINOPRIL 20 MG TABS 1 tab po qd LISINOPRIL 20 MG TABS 587367 LISINOPRIL Inactive SAPHRIS 10 MG SUBL 1 [...] twice daily BACTRIM DS 800-160 MG TAB 075653 TRIMETHOPRIM-SULFAMETHOXAZOLE Inactive MULTIVITAMINS CAPS Take one by mouth daily MULTIVITAMINS CAPS MULTIPLE VITAMIN Inactive MELATONIN 3 MG CAPS 2 po q hs MELATONIN 3 MG CAPS 360243 MELATONIN Inactive KEFLEX 500 MG ORAL CAPS 1 cap QID by mouth KEFLEX 500 MG ORAL CAPS 666018 CEPHALEXIN Inactive CLINDAMYCIN HCL 150 MG CAPS 1 four times a day CLINDAMYCIN HCL 150 MG CAPS 19740326 CLINDAMYCIN HCL Inactive DIFLUCAN 150 MG TAB 1 tablet by mouth daily DIFLUCAN 150 MG TAB 313317 FLUCONAZOLE Inactive PROZAC 20 MG CAP Take one by mouth daily PROZAC 20 MG CAP 876912 FLUOXETINE HCL Inactive IBUPROFEN 600 MG TAB 1 po TID PRN IBUPROFEN 600 MG TAB 154114 IBUPROFEN Inactive VYVANSE 40 MG CAPS 1 daily, VYVANSE 40 MG CAPS LISDEXAMFETAMINE DIMESYLATE Inactive TRAZODONE HCL 100 MG TAB take 1 at bedtime TRAZODONE HCL 100 MG TAB 820469 TRAZODONE HCL Inactive AMITRIPTYLINE HCL 100 MG TAB one at hs AMITRIPTYLINE HCL 100 MG TAB 395783 AMITRIPTYLINE HCL Inactive AMLODIPINE BESYLATE 5 MG TABS 1 tablet by mouth daily AMLODIPINE BESYLATE 5 MG TABS 279188 AMLODIPINE BESYLATE Inactive LATUDA 80 MG TABS Take one by mouth daily LATUDA 80 MG TABS LURASIDONE HCL Inactive SAPHRIS 5 MG SUBL 1 po bid SAPHRIS 5 MG SUBL ASENAPINE MALEATE Inactive PREDNISONE 20 MG TAB 2 tabs daily for 4 days, 1 tab daily for 4 days, 1/2 tab daily for 4 days PREDNISONE 20 MG TAB 326376 PREDNISONE Inactive AMBIEN 5 MG ORAL TABS 1 tab at bedtime AMBIEN 5 MG ORAL TABS 023690 ZOLPIDEM TARTRATE Inactive PROZAC 20 MG ORAL CAPS 1 tab daily PROZAC 20 MG ORAL CAPS 189998 FLUOXETINE HCL Inactive ABILIFY 15 MG ORAL TABS 1 tab daily ABILIFY 15 MG ORAL TABS 525950 ARIPIPRAZOLE Inactive METOPROLOL TARTRATE 50 MG TAB 1 po bid METOPROLOL TARTRATE 50 MG TAB 235561 METOPROLOL TARTRATE Inactive TRAMADOL HCL 50 MG TABS 1-2 po TID PRN Pain TRAMADOL HCL 50 MG TABS 066425 TRAMADOL HCL Inactive PIROXICAM 20 MG CAPS 1 cap po qd PRN Pain PIROXICAM 20 MG CAPS 862446 PIROXICAM Inactive MINIPRESS 2 MG CAPS 4 cap po at night MINIPRESS 2 MG CAPS 628235 PRAZOSIN HCL Inactive MIRALAX PACK 1 po qd PRN Constipation MIRALAX PACK 372978 POLYETHYLENE GLYCOL 3350 Inactive METOPROLOL TARTRATE 25 MG ORAL TABS 1/2 tablet twice daily for heart rate and blood pressure METOPROLOL TARTRATE 25 MG ORAL TABS 365854 METOPROLOL TARTRATE Inactive VALIUM 5 MG TAB Take 1-2 tablets daily VALIUM 5 MG TAB 266211 DIAZEPAM Inactive FLAGYL 500 MG TAB 1 tablet by mouth bid FLAGYL 500 MG TAB 361343 METRONIDAZOLE Inactive DICLOFENAC POTASSIUM TABS Take 1 tablet twice a day (pt. is not sure of the dose.) DICLOFENAC POTASSIUM TABS DICLOFENAC POTASSIUM TABS Inactive ZITHROMAX Z-EARNEST 250 MG TABS 2 today and then 1 daily for 4 days ZITHROMAX Z-EARNEST 250 MG TABS 3221665 AZITHROMYCIN Inactive PREDNISONE 20 MG TABS 2 daily for 5 days then 1 daily for 5 days PREDNISONE 20 MG TABS 324659 PREDNISONE Inactive PROAIR HFA 108 (90 BASE) MCG/ACT AERS 2 puffs four times a day as needed 2015 PROAIR HFA 108 (90 BASE) MCG/ACT AERS ALBUTEROL SULFATE Inactive HYDROCODONE-ACETAMINOPHEN 5-325 MG TABS 1 to 2 four times a day as needed for pain use until can be seen by specialist HYDROCODONE- ACETAMINOPHEN 5-325 MG TABS 931403 HYDROCODONE-ACETAMINOPHEN Inactive TESSALON PERLES 100 MG CAP 1 to 2 tablets by mouth 3 times daily as needed for cough TESSALON PERLES 100 MG CAP 264018 BENZONATATE Inactive CHANTIX STARTING MONTH EARNEST 0.5 [...] Pain 2015 DICLOFENAC SODIUM 50 MG TBEC 842925 DICLOFENAC SODIUM Inactive TOPAMAX 50 MG ORAL TABS 1 tab twice daily TOPAMAX 50 MG ORAL TABS 536070 TOPIRAMATE Inactive VIIBRYD 10 MG ORAL TABS Take 1 tablet once a day VIIBRYD 10 MG ORAL TABS VILAZODONE HCL Inactive LEVOFLOXACIN 500 MG ORAL TABS po daily LEVOFLOXACIN 500 MG ORAL TABS 656796 LEVOFLOXACIN Inactive METHYLPREDNISOLONE 4 MG ORAL TABS po daily METHYLPREDNISOLONE 4 MG ORAL TABS 310997 METHYLPREDNISOLONE Inactive OXYCODONE HCL ER 10 MG ORAL T12A 1/2 tab by mouth every 4 hours prn OXYCODONE HCL ER 10 MG ORAL T12A OXYCODONE HCL Inactive FLAGYL 500 MG TAB 1 tablet by mouth bid FLAGYL 500 MG TAB 961693 METRONIDAZOLE Inactive MONISTAT 7 COMBO PACK WOODROW 100 & 2 MG-% (9GM) VAG KIT 1 applicatorful per vagina q pm x 7 MONISTAT 7 COMBO PACK WOODROW 100 & 2 MG-% (9GM) VAG KIT MICONAZOLE NITRATE Inactive BACTRIM DS 800-160 MG TABS 1 twice a day BACTRIM DS 800-160 MG TABS 789069 SULFAMETHOXAZOLE-TRIMETHOPRIM Inactive TRAMADOL HCL 50 MG TABS 1/2-1 tab TID PRN TRAMADOL HCL 50 MG TABS 305719 TRAMADOL HCL Inactive ABILIFY MAINTENA 400 MG IM SUSR 400mg injection every 26 days ABILIFY MAINTENA 400 MG IM SUSR ARIPIPRAZOLE Inactive KLONOPIN 1 MG ORAL TABS 1 tab po TID KLONOPIN 1 MG ORAL TABS 216777 CLONAZEPAM Inactive ADVAIR DISKUS 250-50 MCG/DOSE INH AEPB 1 puff twice a day for asthma ADVAIR DISKUS 250-50 MCG/DOSE INH AEPB FLUTICASONE- SALMETEROL Inactive BENADRYL 25 MG CAP 4 po at bedtime for insomnia BENADRYL 25 MG CAP DIPHENHYDRAMINE HCL Inactive PREDNISONE 20 MG TABS 2 daily for 5 days then 1 daily for 5 days PREDNISONE 20 MG TABS 720470 PREDNISONE Inactive HYDROCODONE-ACETAMINOPHEN 5-325 MG ORAL TABS 1 tab two times a day HYDROCODONE-ACETAMINOPHEN 5-325 MG ORAL TABS 196898 HYDROCODONE-ACETAMINOPHEN Inactive ZITHROMAX Z-EARNEST 250 MG TABS 2 today and then 1 daily for 4 days ZITHROMAX Z-EARNEST 250 MG TABS 2564945 AZITHROMYCIN Inactive GUAIFENESIN-CODEINE 100-10 MG/5ML SYRP 5ml every 4 to 6 hours as needed for cough GUAIFENESIN-CODEINE 100-10 MG/5ML SYRP 071327 GUAIFENESIN-CODEINE Inactive HALOPERIDOL 10 MG ORAL TABS 1 tab q.d HALOPERIDOL 10 MG ORAL TABS 815776 HALOPERIDOL Inactive ASPIRIN 325 MG ORAL TABS 1 tab q.d ASPIRIN 325 MG ORAL TABS 644247 ASPIRIN Inactive FLUTICASONE PROPIONATE 50 MCG/ACT SUSP 2 sprays each nostril daily before bed. FLUTICASONE PROPIONATE 50 MCG/ACT SUSP 2287905 FLUTICASONE PROPIONATE Inactive ZOFRAN 4 MG TABS 1 po q6hr PRN Nausea ZOFRAN 4 MG TABS 263780 ONDANSETRON HCL Inactive KEFLEX 500 MG CAP 1 po qid KEFLEX 500 MG CAP [id number] CEPHALEXIN Inactive ACETAMINOPHEN-CODEINE 120-12 MG/5ML SOLN 5 ml by mouth every 4-6 hours if needed for cough ACETAMINOPHEN-CODEINE 120-12 MG/5ML SOLN [id number] ACETAMINOPHEN-CODEINE Inactive PREDNISONE 20 MG TAB 1 tablet daily x 4 days PREDNISONE 20 MG TAB [id number] PREDNISONE Inactive TROPICAMIDE 0.5 % OPHTH SOLN 1 drop PRN eye spasms TROPICAMIDE 0.5 % OPHTH SOLN 813320 TROPICAMIDE Inactive LEVAQUIN 500 MG TABS 1 daily for infection LEVAQUIN 500 MG TABS 538104 LEVOFLOXACIN Inactive PREDNISONE 10 MG TABS 2 daily for 5 days then 1 daily for 5 days PREDNISONE 10 MG TABS 828791 PREDNISONE Inactive EQ NICOTINE 21 MG/24HR TRANS [...] twice a day MUPIROCIN 2 % OINT [id number] MUPIROCIN Inactive BACTRIM DS 800-160 MG TAB Take one (1) tablet by mouth twice a day for 5 days BACTRIM DS 800-160 MG TAB [id number] TRIMETHOPRIM- SULFAMETHOXAZOLE Inactive LACTULOSE 10 GM/15ML ORAL SOLN 30mL oral BID for IBS-C LACTULOSE 10 GM/15ML ORAL SOLN 949824 LACTULOSE Inactive MIRALAX ORAL POWD 17GMS DAILY IN WATER MIRALAX ORAL POWD 006222 POLYETHYLENE GLYCOL 3350 Inactive CEFDINIR 300 MG CAPS by mouth twice a day CEFDINIR 300 MG CAPS 315668 CEFDINIR Inactive PREDNISONE 20 MG TAB 2 tabs daily for 3 days, 1 tab daily for 3 days, 1/2 tab daily for 2 days PREDNISONE 20 MG TAB 848702 PREDNISONE Inactive BACTRIM DS 800-160 MG TABS 1 po BID x 7 days BACTRIM DS 800-160 MG TABS [id number] SULFAMETHOXAZOLE-TRIMETHOPRIM Inactive DIFLUCAN 150 MG TABS 1 pill every other day x 2 doses DIFLUCAN 150 MG TABS 908239 FLUCONAZOLE Inactive BACTRIM DS 800-160 MG TABS 1 pill by mouth twice daily BACTRIM DS 800-160 MG TABS 19820521 SULFAMETHOXAZOLE-TRIMETHOPRIM Inactive KEFLEX 500 MG CAP 1 po TID x 10 days KEFLEX 500 MG CAP 535367 CEPHALEXIN Inactive Advance Directives Directive Description Start [...] % 11.0-15.0 platelet count 443 THOUSAND/UL 10*3/mm3 283-373 2898/03/01 mean platelet volume 8.2 fL 7.5-12.5 leukocyte [...] % 11.0-15.0 platelet count 349 THOUSAND/UL 10*3/mm3 997-238 2304/04/12 mean platelet volume 8.4 fL 7.5-12.5 Lab [...] 369 10^3/MM^3 10*3/mm3 142-424 Lab Report: Chlamydia/GC APTIMA/01191 - Lab chlamydia DNA probe NOT DETECTED NOT DETECTED Lab Report: Chlamydia/GC APTIMA/74046 - Microbiology Neisseria gonorrhoeae DNA probe NOT DETECTED NOT DETECTED Lab Report: Chlamydia/GC APTIMA/53416, Urinalysis, Complete, with Reflex ... - Lab chlamydia DNA probe NOT DETECTED NOT DETECTED Lab Report: Chlamydia/GC APTIMA/61669, Urinalysis, Complete, with Reflex ... - Microbiology Neisseria gonorrhoeae DNA probe NOT DETECTED NOT DETECTED Lab Report: Chlamydia/GC APTIMA/46982, Urinalysis, Complete, with Reflex ... - Urinalysis microalbumin/total urine volume 2 mg/L Units converted. See lab report for original value. microalbumin/creatinine ratio, urine 9 MCG/MG CREAT mg/L <30 Lab Report: Comp. Metabolic Panel - Chemistry sodium, serum 140 mmol/L 112-030 3716/08/08 carbon dioxide, venous blood 33.7 mmol/L 21.0-32.0 potassium, serum 5.0 mmol/L 3.5-5.2 chloride, serum 103 mmol/L 98-107 blood glucose 80 mg/dL 65-110 urea nitrogen, blood 13 mg/dL 7-18 creatinine, serum 0.88 mg/dL 0.55-1.30 alanine aminotransferase (SGPT), serum 54 U/L 12-78 aspartate aminotransferase (SGOT), serum 29 U/L 15-37 calcium, serum 9.7 mg/dL 8.5-10.1 bilirubin, serum, total 0.30 mg/dL 0.00-1.00 sodium, serum 140 mmol/L 434-663 2107/06/28 carbon dioxide, venous blood 23.8 mmol/L 21.0-32.0 [...] 5.0-8.5 Encounters Code Encounter Date Provider Facility CPT-27533 Level 3 Est. [facility] 11:08:[facility] 3 Est. Patient 15:55:20 CDT Suzan [facility] CPT-23482 Level 4 Est. Patient 10:49:34 CDT Suzan [facility] CPT-65930 Level 3 Est. Patient 10:00:25 CDT Suzan Boo [facility]-64948 Level 3 Est. Patient 10:29:30 CDT Suzan Boo [facility]-98648 Level 3 Est. Patient 11:04:38 CDT Renzo Jenn Norberto [facility]-06618 Level 3 Est. Patient 11:15:58 NURSES' REGISTRY DIRECTOR Renzo Jenn Thornton [facility] CPT-48125 Level 3 Est. Patient 15:28:23 NURSES' REGISTRY DIRECTOR Suzan Boo [facility]-23537 Level 4 Est. Patient 10:20:54 NURSES' REGISTRY DIRECTOR Suzan Boo [facility]-30656 Level 3 Est. Patient 11:47:37 NURSES' REGISTRY DIRECTOR Ahmet Carbajal MD [facility]-98114 Level 3 Est. Patient 10:40:11 NURSES' REGISTRY DIRECTOR Ahmet Carbajal MD [facility]-72082 Level 3 Est. Patient 15:07:06 NURSES' REGISTRY DIRECTOR Neeraj Collins MD [facility]-77677 Level 4 Est. Patient 14:45:00 NURSES' REGISTRY DIRECTOR Ahmet Carbajal MD [facility]-39457 Level 3 Est. Patient 13:59:59 CDT 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 [facility]-69218 Level 3 Est. Patient 18:18:53 CDT Neeraj Collins MD [facility]-46183 Level 3 Est. Patient 15:50:44 CDT Vishal Hui MD [facility]-15771 Level 3 Est. Patient 11:36:17 CDT Ahmet Carbajal MD [facility]-10376 Level 3 Est. Patient 13:29:16 CDT Vishal Hui MD [facility]-05085 Level 3 Est. Patient 14:27:52 CDT Neeraj Collins MD [facility] CPT-42828 Level 3 Est. Patient 08:56:03 CDT 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 [facility] CPT-83180 Level 4 Est. Patient 12:11:48 CDT Fabiola Johnson [facility] CPT-99705 Level 3 New Patient 16:53:37 CDT Albert Caldera MD [facility] CPT-40955 Level 3 Est. Patient 11:25:49 CDT Renzo Thornton DO [facility] CPT-15538 Level 3 Est. Patient 15:22:01 CDT Ahmet Carbajal MD [facility] CPT-82567 Level 4 Est. Patient 09:00:51 NURSES' REGISTRY DIRECTOR Vishal Hui MD [facility] CPT-02974 Level 3 Est. Patient 11:37:33 NURSES' REGISTRY DIRECTOR Vishal Hui MD [facility] CPT-87425 Level 3 Est. Patient 08:41:09 NURSES' REGISTRY DIRECTOR Vishal Hui MD [facility] CPT-64507 Level 4 Est. Patient 10:19:35 NURSES' REGISTRY DIRECTOR Vishal Hui MD [facility] CPT-60743 Level 3 Est. Patient 13:35:45 CDT Vishal Hui MD [facility] CPT-50203 Level 4 Est. Patient 10:08:37 CDT Vishal Hui MD [facility] CPT-36738 Level 3 Est. Patient 11:22:10 CDT Vishal Hui MD [facility] CPT-20100 Level 3 Est. Patient 11:03:32 CDT Sahara Rodriguez MD PhD [facility] CPT-08431 Level 3 Est. Patient 09:41:35 CDT Vishal Hui MD [facility]-46699 Level 3 Est. Patient 12:00:41 CDT Neeraj Collins MD [facility] CPT-64537 Level 3 Est. Patient 09:16:24 CDT Vishal Hui MD [facility] CPT-88686 Level 4 Est. Patient 13:59:09 CDT Neeraj Collins MD [facility] CPT-05972 Level 3 Est. Patient 15:19:43 CDT Renzo Thornton [facility] CPT-05618 Level 3 Est. Patient 18:10:26 CDT Sahara Rodriguez MD [facility] CPT-91260 Level 3 Est. Patient 14:49:50 CDT Vishal Hui MD [facility] CPT-40285 Level 4 Est. Patient 18:41:46 CDT Neeraj Collins MD [facility] CPT-43850 Level 4 Est. Patient 09:18:38 NURSES' REGISTRY DIRECTOR Vishal Hui MD [facility] CPT-87023 Level 3 Est. Patient 14:43:55 NURSES' REGISTRY DIRECTOR Vishal Hui MD [facility] CPT-07368 Level 3 Est. Patient 15:26:33 NURSES' REGISTRY DIRECTOR Sahara Rodriguez MD [facility] CPT-01434 Level 3 Est. Patient 10:32:14 NURSES' REGISTRY DIRECTOR Vishal Hui MD [facility] CPT-58041 Level 3 Est. Patient 15:12:52 NURSES' REGISTRY DIRECTOR Vishal Hui MD [facility] CPT-94555 Level 4 Est. Patient 09:19:27 CDT Vishal Hui MD [facility] CPT-73237 Level 3 Est. Patient 15:53:00 CDT Renzo Thornton [facility] CPT-25610 Level 3 Est. Patient 15:50:30 CDT Renzo Thornton [facility] CPT-27307 Level 3 Est. Patient 16:55:24 CDT Vishal Hui MD [facility] Procedures Code Procedure Name Date Entry Date Standard Description CPT-78292 EKG Trac and Interp - XRAY USE ONLY 15:59:30 CDT 09/13 CPT-43571 Chest 1V Frontal - XRAY USE ONLY 15:59:30 CDT CPT-69313 Venipuncture Draw Fee 15:44:02 CDT CPT-53925 Venipuncture Draw Fee 08:41:12 CDT CPT-74749 Abd compl w upright - XRAY USE ONLY 10:27:59 CDT 06/28 CPT-67604 Smoking Cessation counseling 11:15:58 NURSES' REGISTRY DIRECTOR CPT-G0439 [facility] Annual Wellness Exam 09:30:58 NURSES' REGISTRY DIRECTOR CPT-62605 TSH - LAB USE ONLY 08:50:26 NURSES' REGISTRY DIRECTOR CPT-64395 CBC - LAB USE ONLY 08:50:26 NURSES' REGISTRY DIRECTOR CPT-92092 Venipuncture Draw Fee 08:50:26 NURSES' REGISTRY DIRECTOR CPT-95866 Abx/Therapy Injection 17:34:30 NURSES' REGISTRY DIRECTOR CPT-86007 Nexplanon Removal with Reinsertion 14:09:32 CDT CPT-J7307 Nexplanon (Implant) 14:09:32 CDT CPT-OV Office Visit 14:09:32 CDT CPT-87125 UA w micro - LAB USE ONLY 16:21:13 CDT CPT-94659 Wet Mount - LAB USE ONLY 16:21:13 CDT CPT-30854 First Vx - Ix admin for Medicare patients 14:37:47 CDT CPT-31825 Fluzone Preservative Free Intramuscular Suspension 14:37 :47 CDT CPT-53878 Abx/Therapy Injection 13:54:22 CDT CPT-35078 Abx/Therapy Injection 08:47:09 CDT CPT-00046 Abx/Therapy Injection 13:29:56 CDT CPT-87803 Abx/Therapy Injection 08:36:16 CDT CPT-74336 Wet Mount - LAB USE ONLY 17:44:58 CDT CPT-76666 UA w micro - LAB USE ONLY 17:44:58 CDT CPT-02341 CMP - LAB USE ONLY 17:44:58 CDT CPT-49589 Venipuncture Draw Fee 17:44:58 CDT CPT-04732 Cervical Min 4V - XRAY USE ONLY 09:01:40 CDT CPT-77583 Chest 2V Frontal and Lat - XRAY USE ONLY 11:06:31 CDT CPT-65297 EKG Trac and Interp - XRAY USE ONLY 11:31:43 CDT 08/26 CPT-J3420 Vitamin B12 1000mcg (Cyanocobalamin) 08:10:26 NURSES' REGISTRY DIRECTOR 04/12 CPT-20485 Abx/Therapy Injection 08:10:26 NURSES' REGISTRY DIRECTOR CPT-G0438 Initial Annual Wellness Exam 19:01:01 NURSES' REGISTRY DIRECTOR CPT-J3420 Vitamin B12 1000mcg (Cyanocobalamin) 16:57:46 CDT 08/14 CPT-21692 Recombivax HB Injection Suspension 5 MCG/0.5ML 08:37:50 NURSES' REGISTRY DIRECTOR CPT-39154 Immunization Single Admin 08:37:50 NURSES' REGISTRY DIRECTOR CPT-J3420 Vitamin B12 1000mcg (Cyanocobalamin) 08:32:16 NURSES' REGISTRY DIRECTOR 03/11 CPT-64484 Abx/Therapy Injection 08:32:16 NURSES' REGISTRY DIRECTOR CPT-43922 Chest 2V Frontal and Lat 11:46:38 NURSES' REGISTRY DIRECTOR CPT-06803 Venipuncture Draw Fee 09:12:45 NURSES' REGISTRY DIRECTOR CPT-J3420 Vitamin B12 1000mcg (Cyanocobalamin) 08:50:15 NURSES' REGISTRY DIRECTOR 02/08 CPT-15443 Abx/Therapy Injection 08:50:15 NURSES' REGISTRY DIRECTOR CPT-Cryo Cryotherapy 10:19:35 NURSES' REGISTRY DIRECTOR CPT-000 Give Appropriate Flu Vaccine 09:22:16 CDT CPT-J3420 Vitamin B12 1000mcg (Cyanocobalamin) 19:08:57 CDT 01/11 CPT-73438 Abx/Therapy Injection 19:08:57 CDT CPT-J3420 Vitamin B12 1000mcg (Cyanocobalamin) 08:19:08 CDT 12/11 CPT-31555 Abx/Therapy Injection 08:19:08 CDT CPT-J3420 Vitamin B12 1000mcg (Cyanocobalamin) 14:48:00 CDT 11/09 CPT-60226 Abx/Therapy Injection 14:47:59 CDT CPT-J3420 Vitamin B12 1000mcg (Cyanocobalamin) 08:34:04 CDT 10/09 CPT-35102 Abx/Therapy Injection 08:34:04 CDT CPT-J3420 Vitamin B12 1000mcg (Cyanocobalamin) 09:18:52 CDT 09/11 CPT-69074 Abx/Therapy Injection 09:18:52 CDT CPT-J3420 Vitamin B12 1000mcg (Cyanocobalamin) 08:35:44 CDT 09/04 CPT-97979 Abx/Therapy Injection 08:35:44 CDT CPT-97432 Immunization Single Admin 11:07:16 CDT CPT-72236 Hepatitis B adult IM 11:07:16 CDT CPT-J3420 Vitamin B12 1000mcg (Cyanocobalamin) 11:00:49 CDT 08/28 CPT-J1040 Depo Medrol 80 mg (Methyl Prednisolone Acetate) 11:00: 49 CDT CPT-55870 Abx/Therapy Injection 11:00:49 CDT CPT-J1040 Depo Medrol 80 mg (Methyl Prednisolone Acetate) 09:16: 23 CDT CPT-J3420 Vitamin B12 1000mcg (Cyanocobalamin) 08:27:05 CDT 08/20 CPT-18596 Abx/Therapy Injection 08:27:05 CDT CPT-46500 Recombivax HB Injection Suspension 5 MCG/0.5ML 10:00:41 CDT CPT-96718 Administration single or combination vaccine inc oral 10 :00:41 CDT CPT-43757 Sono transvag pelvis non OB uterus ovaries cervix 16:36: 57 CDT CPT-29391 LS spine comp w obliq 09:50:55 NURSES' REGISTRY DIRECTOR CPT-41401 Abd compl w upright 09:50:55 NURSES' REGISTRY DIRECTOR CPT-J1100 Decadron 4mg (Dexamethasone) 15:51:24 NURSES' REGISTRY DIRECTOR CPT-J1030 Depo Medrol 40 mg (Methyl Prednisolone Acetate) 15:51: 24 NURSES' REGISTRY DIRECTOR CPT-75171 Abx/Therapy Injection 15:51:24 NURSES' REGISTRY DIRECTOR CPT-J1100 Decadron 4mg (Dexamethasone) 15:26:33 NURSES' REGISTRY DIRECTOR CPT-J1030 Depo Medrol 40 mg (Methyl Prednisolone Acetate) 15:26: 33 NURSES' REGISTRY DIRECTOR CPT-94064 Sono retroperitoneal complete kidneys and bladder 17:15: 30 CDT CPT-80019 Abd compl w upright 16:09:25 CDT CPT-J1100 Decadron 8mg (Dexamethasone) 17:07:57 CDT CPT-76302 Abx/Therapy Injection 17:07:57 CDT CPT-J1100 Decadron 8mg (Dexamethasone) 16:55:24 CDT CPT-56072 Chest 2V Frontal and Lat 16:32:44 CDT
--- OUTSIDE RECORDS SUMMARY | 2016-11-04 11:50 | XMS REPORT ---
Author Author [email or web address] Medical Staff Organization [email or web address] Address [address] [place], [place] [id number] Phone [phone] Summary purpose TRANSITION OF CARE AUTO GENERATION [...] Relevant diagnostic tests and/or laboratory data RESULTS Routine Cultures [id number] Result Normal Range Units Cervical/ Vaginal/ Urethral See Comments Plate Date and Time 06/01/2015 19:43 SourceVAGINAL CULTURE REPORT Small Amount Apparent Normal Sruthi Release Date/Time: 06/02/2015 07:16 CULTURE REPORT Large Amount Yeast Present ID to Follow Release Date/Time: 06/03/2015 07:35 CULTURE REPORT No organims other than yeast - Presumptive C. albicans recovered. Release Date/Time: 06/04/2015 07:40 GRAM STAIN 2+ Gram Positive Juliocesar Release Date/Time: 06/02/2015 10:33 ORGID #1:Large Amount PRESUMPTIVE C. ALBICANS Release Date/Time: 06/03/2015 09:23 History of procedures Procedure Code Code Type Description Date Performed Performing Physician 31604 CPT-4 SMEAR GRAM STAIN 06-01-2015 DENICE OCHOA 18127 CPT-4 CULTURE [facility] SPECIMN AEROBIC 06-01-2015 DENICE OCHOA Functional status No functional or [...]
--- OUTSIDE RECORDS SUMMARY | 2016-11-04 11:53 | XMS REPORT | Clinical Summary ---
Author Author Admin, E Organization [facility] Address Unknown Phone Unavailable Allergies, Adverse Reactions, [...] essential hypertension Pneumonia, organism unspecified 486 Resolved Visahl Hui MD Pneumonia, organism unspecified Flank pain, right 789.09 Resolved Vishal Hui MD Abdominal pain, other specified site; multiple sites G E R D 530.81 Resolved Vishal Hui MD Esophageal reflux Health screening V70.0 Resolved Suzan Boo APRN Routine general medical examination at a health care facility Sinus tachycardia 427.89 Resolved Suzan Rajeev HAIR SPINNING MACHINE OPERATOR Other specified cardiac dysrhythmias Schizoaffective [...] use disorder Abdominal pain 789.00 Resolved Vishal Hiu MD Abdominal pain, unspecified site Cellulitis 682.9 [...] MD Headache Elevated blood glucose 790.29 Resolved Vishla Hui MD Other abnormal glucose Polyarthralgia 719.49 [...] Active Ahmet Carbajal MD Generalized anxiety disorder Orthotist Or Prosthetist well woman exam V72.31 Active Suzan Boo [...] Other nonspecific findings on examination of urine Pneumonia, organism unspecified ICD-486 Inactive Vishal Hui MD Flank pain, right ICD-789.09 Inactive Vishal Hui MD G E R D ICD-530.81 Inactive Vishal Hui MD Anxiety Disorder ICD-300.00 Inactive Vishal Hui MD Health screening ICD-V70.0 Inactive Suzan Boo HAIR SPINNING MACHINE OPERATOR Sinus tachycardia ICD-427.89 Inactive Suzan Boo HAIR SPINNING MACHINE OPERATOR Abdominal pain ICD-789.00 Inactive Vishal Hui MD Cellulitis ICD-682.9 Inactive Vishal Hui MD Pelvic pain ICD-625.9 Inactive Vishal Hui MD Abscess, skin ICD-682.9 Inactive Vishal Hui MD Physical examination ICD-V70.0 Inactive Vishal Hui MD Smoker/tobacco use disorder-smoking cessation discussed ICD-305.1 Inactive Vishal Hui MD Fatigue ICD-780.79 Inactive Vishal Hui MD 2014 Vaginitis, candidal ICD-112.1 Inactive Vishal Hui MD Other abnormal blood chemistry ICD-790.6 Jim Hui MD Vaginitis ICD-616.10 Inactive Vishal Hui MD Boils, recurrent ICD-680.9 Inactive Vishal Hui MD Postconcussion syndrome ICD-310.2 Inactive Vishal Hui MD Nevus, 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 Inactive Vishal Hui MD Encounter for removal of sutures ICD-V58.32 Inactive Vishal Hui MD Hot flashes ICD-627.2 Inactive Vishal Hui MD Personality change ICD-301.9 Inactive Vishal Hui MD Leukocytosis ICD-288.60 Inactive Vishal Hui MD UTI ICD-599.0 Inactive Vishal Hui MD 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 Inactive Vishal Hui MD Elevated blood glucose ICD-790.29 Inactive Vishal Hui MD Gait unsteady ICD-781.2 Inactive Albert Caldera MD Lipoma ICD-214.9 Inactive Albert Caldera MD Abdominal pain, RUQ ICD-789.01 Inactive Albert Caldera MD Chest pain, acute ICD-786.50 Inactive Albert Caldera MD Headache, atypical ICD-784.0 Inactive Albetr Caldera MD Nocturnal hypoxia ICD-799.02 Inactive Suzan Boo HAIR SPINNING MACHINE OPERATOR Neck pain ICD-723.1 Inactive Vishal Hui MD [...] Suzan Boo APRN Vaginal discharge ICD-623.5 Inactive uSzan Boo APRN DYSURIA ICD-788.1 Inactive Suzan Boo APRN Cellulitis and abscess of breast ICD-611.0 Inactive Ahmet Carbajal MD Nondisplaced transverse fracture of shaft of left fibula, subsequent encounter for closed fracture with routine healing Inactive Suzan Boo APRN Bronchitis, acute ICD-466.0 Inactive Ahmet Carbajal MD Localized adiposity ICD-278.1 Inactive Vishal Hui MD Shortness of breath ICD-786.05 Inactive Vishal Hui MD Medication List Medication Instructions Start Date Stop Date Generic Name NDC Status Provider Patient Instruction LACTULOSE 10 GM/15ML ORAL SOLN 30mL oral daily for IBS-C LACTULOSE [id number] Active Suzan Boo APRN Active TESSALON PERLES 100 MG CAPS 1 three times a day as needed for cough BENZONATATE 27674250117 No Longer Active Suzan Boo APRN Active BACTRIM DS 800-160 MG TABS 1 twice a day SULFAMETHOXAZOLE-TRIMETHOPRIM 30472873178 No Longer Active Suzan Boo APRN Active DIFLUCAN 150 MG TABS 1 by mouth for yeast FLUCONAZOLE 44185004830 No Longer Active Suzan Boo APRN Active EQ NICOTINE 21 MG/24HR TRANS PT24 Apply daily to stop smoking NICOTINE 80234105900 No Longer Active Suzan Boo APRN Active PREDNISONE 10 MG TABS 2 daily for 5 days then 1 daily for 5 days PREDNISONE 62472739955 No Longer Active Suzan Boo APRN Active LEVAQUIN 500 MG TABS 1 daily for infection LEVOFLOXACIN 46854619729 No Longer Active Suzan Boo APRN Active TROPICAMIDE 0.5 % OPHTH SOLN 1 drop PRN eye spasms TROPICAMIDE 21297895643 No Longer Active Suzan Boo APRN Active PREDNISONE 20 MG TAB 1 tablet daily x 4 days PREDNISONE 05240075681 No Longer Active Suzan Boo APRN Active ACETAMINOPHEN-CODEINE 120-12 MG/5ML SOLN 5 ml by mouth every 4-6 hours if needed for cough ACETAMINOPHEN-CODEINE 22432768039 No Longer Active Suzan Boo APRN Active KEFLEX 500 MG CAP 1 po qid CEPHALEXIN 13548422117 No Longer Active Suzan Boo APRN Active FLOVENT HFA 110 MCG/ACT AERO 2 puffs inhaled b.i.d. FLUTICASONE PROPIONATE HFA 29501908262 Active Renzo Thornton DO Active RISPERDAL 4 MG ORAL TABS 1 tab at bedtime RISPERIDONE 90579523462 Active Samantha Rothman RMA Active ZOFRAN 4 MG TABS 1 po q6hr PRN Nausea ONDANSETRON HCL No Longer Active Suzan Boo APRN Active FLUTICASONE PROPIONATE 50 MCG/ACT SUSP 2 sprays each nostril daily before bed. FLUTICASONE PROPIONATE 48129867437 No Longer Active Suzan Boo APRN Active ASPIRIN 325 MG ORAL TABS 1 tab q.d ASPIRIN 15916626111 No Longer Active Suzan Boo APRN Active HALOPERIDOL 10 MG ORAL TABS 1 tab q.d HALOPERIDOL 67765696329 No Longer Active Suzan Boo APRN Active GUAIFENESIN-CODEINE 100-10 MG/5ML SYRP 5ml every 4 to 6 hours as needed for cough GUAIFENESIN-CODEINE 91938754768 No Longer Active Suzan Boo APRN Active ZITHROMAX Z-EARNEST 250 MG TABS 2 today and then 1 daily for 4 days AZITHROMYCIN 07973134107 No Longer Active Suzan Boo APRN Active CLONAZEPAM 1 MG ORAL TABS 1 twice a day and an additional 1 tablet every other day as needed for pseudoseizures or anxiety CLONAZEPAM 77675115235 Active Ahmet Carbajal MD Active HYDROCODONE-ACETAMINOPHEN 5-325 MG ORAL TABS 1 tab two times a day HYDROCODONE-ACETAMINOPHEN 99964787245 No Longer Active Ahmet Carbajal MD Active LAMICTAL 100 MG ORAL TABS 1 tab 2 times qd. LAMOTRIGINE 33888452553 Active Ahmet Carbajal MD Active PREDNISONE 20 MG TABS 2 daily for 5 days then 1 daily for 5 days PREDNISONE 74879868684 No Longer Active Ahmet Carbajal MD Active FLUTICASONE PROPIONATE 50 MCG/ACT SUSP 1 to 2 sprays each nostril daily for allergies FLUTICASONE PROPIONATE 06608280979 Active Tila Valenzuela Active BENADRYL 25 MG CAP 4 po at bedtime for insomnia DIPHENHYDRAMINE HCL 75645444589 No Longer Active Ahmet Carbajal MD Active ADVAIR DISKUS 250-50 MCG/DOSE INH AEPB 1 puff twice a day for asthma FLUTICASONE-SALMETEROL 48906289412 No Longer Active Ahmet Carbajal MD Active KLONOPIN 1 MG ORAL TABS 1 tab po TID CLONAZEPAM 08685727199 No Longer Active Ahmet Carbajal MD Active ABILIFY MAINTENA 400 MG IM SUSR 400mg injection every 26 days ARIPIPRAZOLE 90358892922 No Longer Active Ahmet Carbajal MD Active TRAMADOL HCL 50 MG TABS 1/2-1 tab TID PRN TRAMADOL HCL 92028919195 No Longer Active Ahmet Carbajal MD Active BACTRIM DS 800-160 MG TABS 1 twice a day SULFAMETHOXAZOLE- TRIMETHOPRIM 43423783524 No Longer Active Ahmet Carbajal MD Active PROAIR HFA 108 (90 BASE) MCG/ACT AERS 2 puffs four times a day as needed 2015 ALBUTEROL SULFATE 04581447498 Active Ahmet Carbajal MD Active MONISTAT 7 COMBO PACK WOODROW 100 & 2 MG-% (9GM) VAG KIT 1 applicatorful per vagina q pm x 7 MICONAZOLE NITRATE 27459927376 No Longer Active Ahmet Carbajal MD Active FLAGYL 500 MG TAB 1 tablet by mouth bid METRONIDAZOLE 10970206089 No Longer Active Ahmet Carbajal MD Active OXYCODONE HCL ER 10 MG ORAL T12A 1/2 tab by mouth every 4 hours prn OXYCODONE HCL 99685045920 No Longer Active Ahmet Carbajal MD Active METHYLPREDNISOLONE 4 MG ORAL TABS po daily METHYLPREDNISOLONE 29578409624 No Longer Active Ahmet Carbajal MD Active LEVOFLOXACIN 500 MG ORAL TABS po daily LEVOFLOXACIN 11637098571 No Longer Active Ahmet Carbajal MD Active VIIBRYD 10 MG ORAL TABS Take 1 tablet once a day VILAZODONE HCL 35111098656 No Longer Active Ahmet Carbajal MD Active TOPAMAX 50 MG ORAL TABS 1 tab twice daily TOPIRAMATE 65774989751 No Longer Active Ahmet Carbajal MD Active DICLOFENAC SODIUM 50 MG TBEC 1 tablet by mouth four times daily PRN Pain 2015 DICLOFENAC SODIUM 89198832197 No Longer Active Ahmet Carbajal MD Active ADZENYS XR-ODT 6.3 MG ORAL TBED 1 tab po daily for ADHD AMPHETAMINE 26012498319 No Longer Active Ahmet Carbajal MD Active CHANTIX 1 MG TABS 1 twice a day to help quit smoking VARENICLINE TARTRATE 07474552733 No Longer Active Dipika Burgos MD Active CHANTIX STARTING MONTH EARNEST 0.5 MG X 11 & 1 MG X 42 TABS take as directed 2015 VARENICLINE TARTRATE 74180398696 No Longer Active Dipika Burgos MD Active TESSALON PERLES 100 MG CAP 1 to 2 tablets by mouth 3 times daily as needed for cough BENZONATATE 70281503561 No Longer Active 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 APRN Active IMITREX 50 MG ORAL TABS 0.5 po x 1 PRN Headache. May repeat dose x 1 in 2 hours if needed SUMATRIPTAN SUCCINATE 78616154600 Active Ahmet Carbajal MD Active HYDROCODONE-ACETAMINOPHEN 5-325 MG TABS 1 to 2 four times a day as needed for pain use until can be seen by specialist HYDROCODONE- ACETAMINOPHEN 64526983519 No Longer Active Vishal Hui MD Active PROAIR HFA 108 (90 BASE) MCG/ACT AERS 2 puffs four times a day as needed 2015 ALBUTEROL SULFATE 12501258677 No Longer Active Vishal Hui MD Active PREDNISONE 20 MG TABS 2 daily for 5 days then 1 daily for 5 days PREDNISONE 79039548144 No Longer Active Vishal Hui MD Active ZITHROMAX Z-EARNEST 250 MG TABS 2 today and then 1 daily for 4 days AZITHROMYCIN 91865338294 No Longer Active Vishal Hui MD Active DICLOFENAC POTASSIUM TABS Take 1 tablet twice a day (pt. is not sure of the dose.) DICLOFENAC POTASSIUM TABS 25187120576 No Longer Active Vishal Hui MD Active VERAPAMIL HCL ER 120 MG ORAL CR-TABS Take 1 tablet by mouth twice a day. VERAPAMIL HCL 59809711234 Active Vishal Hui MD Active FLAGYL 500 MG TAB 1 tablet by mouth bid METRONIDAZOLE 46229578739 No Longer Active Vishal Hui MD Active VALIUM 5 MG TAB Take 1-2 tablets daily DIAZEPAM 35395743808 No Longer Active Fabiola Johnson APRN Active METOPROLOL TARTRATE 25 MG ORAL TABS 1/2 tablet twice daily for heart rate and blood pressure METOPROLOL TARTRATE 51207524622 No Longer Active Fabiola Johnson APRN Active MIRALAX ORAL POWD 17GMS DAILY IN WATER POLYETHYLENE GLYCOL 3350 51384340330 Active TAMARA Caesy Active MIRALAX PACK 1 po qd PRN Constipation POLYETHYLENE GLYCOL 3350 94837448691 No Longer Active Ahmet Carbajal MD Active MINIPRESS 2 MG CAPS 4 cap po at night PRAZOSIN HCL 11992473993 No Longer Active Ahmet Carbajal MD Active PIROXICAM 20 MG CAPS 1 cap po qd PRN Pain PIROXICAM 53215222348 No Longer Active Ahmet Carbajal MD Active TRAMADOL HCL 50 MG TABS 1-2 po TID PRN Pain TRAMADOL HCL 73287535780 No Longer Active Ahmet Carbajal MD Active METOPROLOL TARTRATE 50 MG TAB 1 po bid METOPROLOL TARTRATE 85340812167 No Longer Active Ahmet Carbajal MD Active ABILIFY 15 MG ORAL TABS 1 tab daily ARIPIPRAZOLE 37355748210 No Longer Active Ahmet Carbajal MD Active PROZAC 20 MG ORAL CAPS 1 tab daily FLUOXETINE HCL 51593577033 No Longer Active Ahmet Carbajal MD Active AMBIEN 5 MG ORAL TABS 1 tab at bedtime ZOLPIDEM TARTRATE 17192825006 No Longer Active Ahmet Carbajal MD Active PREDNISONE 20 MG TAB 2 tabs daily for 4 days, 1 tab daily for 4 days, 1/2 tab daily for 4 days PREDNISONE 96792933635 No Longer Active Ahmet Carbajal MD Active KEFLEX 500 MG CAP 1 po TID x 10 days CEPHALEXIN 96093501539 No Longer Active Vishal Hui MD Active SAPHRIS 5 MG SUBL 1 po bid ASENAPINE MALEATE 46167900591 No Longer Active Jillina Fralebron HAIR SPINNING MACHINE OPERATOR Active LATUDA 80 MG TABS Take one by mouth daily LURASIDONE HCL 16940290931 No Longer Active Jillina Frazell HAIR SPINNING MACHINE OPERATOR Active AMLODIPINE BESYLATE 5 MG TABS 1 tablet by mouth daily AMLODIPINE BESYLATE 89718972631 No Longer Active Jillina Mauricio HAIR SPINNING MACHINE OPERATOR Active AMITRIPTYLINE HCL 100 MG TAB one at hs AMITRIPTYLINE HCL 77657708917 No Longer Active Vishal Hui MD Active TRAZODONE HCL 100 MG TAB take 1 at bedtime TRAZODONE HCL 82896061632 No Longer Active Vishal Hui MD Active VYVANSE 40 MG CAPS 1 daily, LISDEXAMFETAMINE DIMESYLATE 55288897873 No Longer Active Vishal Hui MD Active IBUPROFEN 600 MG TAB 1 po TID PRN IBUPROFEN 21593631735 No Longer Active Vishal Hui MD Active PROZAC 20 MG CAP Take one by mouth daily FLUOXETINE HCL 73120442477 No Longer Active Vishal Hui MD Active BACTRIM DS 800-160 MG TABS 1 pill by mouth twice daily SULFAMETHOXAZOLE-TRIMETHOPRIM 53930428031 No Longer Active Sahara Rodriguez MD PhD Active DIFLUCAN 150 MG TAB 1 tablet by mouth daily FLUCONAZOLE 98801267837 No Longer Active Vishal Hui MD Active TIZANIDINE HCL 4 MG TABS 1 po q6hr PRN Muscle Spasm/Back Pain TIZANIDINE HCL 71268907724 Active Vishal Hui MD Active CLINDAMYCIN HCL 150 MG CAPS 1 four times a day CLINDAMYCIN HCL 00737370790 No Longer Active Neeraj Collins MD Active KEFLEX 500 MG ORAL CAPS 1 cap QID by mouth CEPHALEXIN 89184520159 No Longer Active Neeraj Collins MD Active DIFLUCAN 150 MG TABS 1 pill every other day x 2 doses FLUCONAZOLE 89954031275 No Longer Active Sahara Rodriguez MD PhD Active MELATONIN 3 MG CAPS 2 po q hs MELATONIN 54617899870 No Longer Active Sahara Rodriguez MD PhD Active MULTIVITAMINS CAPS Take one by mouth daily MULTIPLE VITAMIN 64474313695 No Longer Active Sahara Rodriguez MD PhD Active BACTRIM DS 800-160 MG TAB 1 tab by mouth twice daily TRIMETHOPRIM-SULFAMETHOXAZOLE 49926790023 No Longer Active Sahara Rodriguez MD PhD Active [facility] PROBIOTIC ORAL CHEW 2 daily po PROBIOTIC PRODUCT 03930780254 No Longer Active Sahara Rodriguez MD PhD Active BACTRIM DS 800-160 MG TABS 1 po BID x 7 days SULFAMETHOXAZOLE-TRIMETHOPRIM 12763725413 No Longer Active Vishal Hui MD Active CHANTIX STARTING MONTH EARNEST 0.5 MG X 11 & 1 MG X 42 TABS 0.5mg daily for 3 days , then 0.5mg BID for 4 days, then 1mg BID VARENICLINE TARTRATE 40979585976 No Longer Active TAMARA Gray Active VERAPAMIL HCL CR 120 MG TAB CR 1 po bid VERAPAMIL HCL 47538133101 No Longer Active Vishal Hui MD Active METOPROLOL SUCCINATE 50 MG TB24 1 tablet by mouth daily METOPROLOL SUCCINATE 76258594222 No Longer Active Vishal Hui MD Active SAPHRIS 10 MG SUBL 1 tab po bid ASENAPINE MALEATE 44953305028 No Longer Active Vishal Hui MD Active LISINOPRIL 20 MG TABS 1 tab po qd LISINOPRIL 23368926071 No Longer Active Vishal Hui MD Active LATUDA 20 MG TABS Take one by mouth daily LURASIDONE HCL 98677265348 No Longer Active Vishal Hui MD Active TRAZODONE HCL 50 MG TABS 1/2 tab po qd prn for anxiety TRAZODONE HCL 78021618702 No Longer Active Vishal Hui MD Active OMEPRAZOLE 20 MG TBEC 1 po q a.m. 30min prior to first food intake OMEPRAZOLE 44817765150 Active TAMARA Casey Active RANITIDINE HCL 150 MG CAPS 1 twice a day RANITIDINE HCL 97412945264 Active Jillina Frazell HAIR SPINNING MACHINE OPERATOR Active LINZESS 290 MCG CAPS Take one by mouth daily LINACLOTIDE 90903302763 No Longer Active Vishal Hui MD Active SAPHRIS 5 MG SUBL 1 tab po qd ASENAPINE MALEATE 61904451396 No Longer Active Vishal Hui MD Active ZALEPLON 10 MG CAPS 1 cap po every other night ZALEPLON 88452907643 No Longer Active Vishal Hui MD Active LYRICA 50 MG CAPS 1 tab po TID PREGABALIN 84437914235 No Longer Active Vishal Hui MD Active LORATADINE 10 MG TABS 1 tab po qd LORATADINE 93934551713 No Longer Active Vishal Hui MD Active VERAPAMIL HCL ER 180 MG CR-TABS 1 tab po bid VERAPAMIL HCL 80005323340 No Longer Active Vishal Hui MD Active MIRALAX POWD 1 capfull once daily POLYETHYLENE GLYCOL 3350 15021746246 No Longer Active Vishal Hui MD Active PREDNISONE 20 MG TABS 1 tab po qd PREDNISONE 77835172322 No Longer Active Renzo Thornton DO Active LEVOFLOXACIN 500 MG TABS 1 tab po qd LEVOFLOXACIN 23384758101 No Longer Active Renzo Thornton DO Active BUSPIRONE HCL 15 MG TABS 1 tab po TID BUSPIRONE HCL 77725165400 No Longer Active Renzo Thornton DO Active BENZTROPINE MESYLATE 1 MG TABS 1 tab po qd BENZTROPINE MESYLATE 31007909462 No Longer Active Renzo Thornton DO Active ATENOLOL 25 MG TABS 1 tab po qd ATENOLOL 13211449216 No Longer Active Renzo Thornton DO Active ESCITALOPRAM OXALATE 20 MG TABS 1 tab po qd ESCITALOPRAM OXALATE 35295814019 No Longer Active Renzo Thornton DO Active ADVAIR DISKUS 250-50 MCG/DOSE AEPB 1 puff BID FLUTICASONE-SALMETEROL 37414444779 No Longer Active Renzo Thornton DO Active PREDNISONE 20 MG TAB 2 tabs daily for 3 days, 1 tab daily for 3 days, 1/2 tab daily for 2 days PREDNISONE 38761992129 No Longer Active Vishal Hui MD Active CEFDINIR 300 MG CAPS by mouth twice a day CEFDINIR 17355380299 No Longer Active Vishal Hui MD Active LANSOPRAZOLE 30 MG CPDR 1 cap po qd LANSOPRAZOLE 37356026107 No Longer Active Vishal Hui MD Active BACLOFEN 20 MG TABS 1 tab po tid BACLOFEN 09958645401 No Longer Active Vishal Hui MD Active ADVAIR DISKUS 250-50 MCG/DOSE AEPB 1 puff BID ADVAIR DISKUS 250-50 MCG/DOSE AEPB FLUTICASONE-SALMETEROL Inactive ESCITALOPRAM OXALATE 20 MG TABS 1 tab po qd ESCITALOPRAM OXALATE 20 MG TABS 090228 ESCITALOPRAM OXALATE Inactive ATENOLOL 25 MG TABS 1 tab po qd ATENOLOL 25 MG TABS 084645 ATENOLOL Inactive BENZTROPINE MESYLATE 1 MG TABS 1 tab po qd BENZTROPINE MESYLATE 1 MG TABS 807330 BENZTROPINE MESYLATE Inactive BUSPIRONE HCL 15 MG TABS 1 tab po TID BUSPIRONE HCL 15 MG TABS 674443 BUSPIRONE HCL Inactive LEVOFLOXACIN 500 MG TABS 1 tab po qd LEVOFLOXACIN 500 MG TABS 307994 LEVOFLOXACIN Inactive PREDNISONE 20 MG TABS 1 tab po qd PREDNISONE 20 MG TABS 863419 PREDNISONE Inactive MIRALAX POWD 1 capfull once daily MIRALAX POWD 965500 POLYETHYLENE GLYCOL 3350 Inactive VERAPAMIL HCL ER 180 MG CR-TABS 1 tab po bid VERAPAMIL HCL ER 180 MG CR-TABS VERAPAMIL HCL Inactive LORATADINE 10 MG TABS 1 tab po qd LORATADINE 10 MG TABS 158103 LORATADINE Inactive LYRICA 50 MG CAPS 1 tab po TID LYRICA 50 MG CAPS PREGABALIN Inactive ZALEPLON 10 MG CAPS 1 cap po every other night ZALEPLON 10 MG CAPS 392163 ZALEPLON Inactive SAPHRIS 5 MG SUBL 1 tab po qd SAPHRIS 5 MG SUBL ASENAPINE MALEATE Inactive TRAZODONE HCL 50 MG TABS 1/2 tab po qd prn for anxiety TRAZODONE HCL 50 MG TABS 628570 TRAZODONE HCL Inactive LATUDA 20 MG TABS Take one by mouth daily LATUDA 20 MG TABS LURASIDONE HCL Inactive LISINOPRIL 20 MG TABS 1 tab po qd LISINOPRIL 20 MG TABS 073032 LISINOPRIL Inactive SAPHRIS 10 MG SUBL 1 [...] twice daily BACTRIM DS 800-160 MG TAB 666640 TRIMETHOPRIM-SULFAMETHOXAZOLE Inactive MULTIVITAMINS CAPS Take one by mouth daily MULTIVITAMINS CAPS MULTIPLE VITAMIN Inactive MELATONIN 3 MG CAPS 2 po q hs MELATONIN 3 MG CAPS 983998 MELATONIN Inactive KEFLEX 500 MG ORAL CAPS 1 cap QID by mouth KEFLEX 500 MG ORAL CAPS 341640 CEPHALEXIN Inactive CLINDAMYCIN HCL 150 MG CAPS 1 four times a day CLINDAMYCIN HCL 150 MG CAPS 016889 CLINDAMYCIN HCL Inactive DIFLUCAN 150 MG TAB 1 tablet by mouth daily DIFLUCAN 150 MG TAB 879836 FLUCONAZOLE Inactive PROZAC 20 MG CAP Take one by mouth daily PROZAC 20 MG CAP 992589 FLUOXETINE HCL Inactive IBUPROFEN 600 MG TAB 1 po TID PRN IBUPROFEN 600 MG TAB 107052 IBUPROFEN Inactive VYVANSE 40 MG CAPS 1 daily, VYVANSE 40 MG CAPS LISDEXAMFETAMINE DIMESYLATE Inactive TRAZODONE HCL 100 MG TAB take 1 at bedtime TRAZODONE HCL 100 MG TAB 374457 TRAZODONE HCL Inactive AMITRIPTYLINE HCL 100 MG TAB one at hs AMITRIPTYLINE HCL 100 MG TAB 500245 AMITRIPTYLINE HCL Inactive AMLODIPINE BESYLATE 5 MG TABS 1 tablet by mouth daily AMLODIPINE BESYLATE 5 MG TABS 818834 AMLODIPINE BESYLATE Inactive LATUDA 80 MG TABS Take one by mouth daily LATUDA 80 MG TABS LURASIDONE HCL Inactive SAPHRIS 5 MG SUBL 1 po bid SAPHRIS 5 MG SUBL ASENAPINE MALEATE Inactive PREDNISONE 20 MG TAB 2 tabs daily for 4 days, 1 tab daily for 4 days, 1/2 tab daily for 4 days PREDNISONE 20 MG TAB 282096 PREDNISONE Inactive AMBIEN 5 MG ORAL TABS 1 tab at bedtime AMBIEN 5 MG ORAL TABS 973768 ZOLPIDEM TARTRATE Inactive PROZAC 20 MG ORAL CAPS 1 tab daily PROZAC 20 MG ORAL CAPS 778479 FLUOXETINE HCL Inactive ABILIFY 15 MG ORAL TABS 1 tab daily ABILIFY 15 MG ORAL TABS 944338 ARIPIPRAZOLE Inactive METOPROLOL TARTRATE 50 MG TAB 1 po bid METOPROLOL TARTRATE 50 MG TAB 599507 METOPROLOL TARTRATE Inactive TRAMADOL HCL 50 MG TABS 1-2 po TID PRN Pain TRAMADOL HCL 50 MG TABS 879136 TRAMADOL HCL Inactive PIROXICAM 20 MG CAPS 1 cap po qd PRN Pain PIROXICAM 20 MG CAPS 354378 PIROXICAM Inactive MINIPRESS 2 MG CAPS 4 cap po at night MINIPRESS 2 MG CAPS 410447 PRAZOSIN HCL Inactive MIRALAX PACK 1 po qd PRN Constipation MIRALAX PACK 761105 POLYETHYLENE GLYCOL 3350 Inactive METOPROLOL TARTRATE 25 MG ORAL TABS 1/2 tablet twice daily for heart rate and blood pressure METOPROLOL TARTRATE 25 MG ORAL TABS 740862 METOPROLOL TARTRATE Inactive VALIUM 5 MG TAB Take 1-2 tablets daily VALIUM 5 MG TAB 705585 DIAZEPAM Inactive FLAGYL 500 MG TAB 1 tablet by mouth bid FLAGYL 500 MG TAB 364278 METRONIDAZOLE Inactive DICLOFENAC POTASSIUM TABS Take 1 tablet twice a day (pt. is not sure of the dose.) DICLOFENAC POTASSIUM TABS DICLOFENAC POTASSIUM TABS Inactive ZITHROMAX Z-EARNEST 250 MG TABS 2 today and then 1 daily for 4 days ZITHROMAX Z-EARNEST 250 MG TABS 5052520 AZITHROMYCIN Inactive PREDNISONE 20 MG TABS 2 daily for 5 days then 1 daily for 5 days PREDNISONE 20 MG TABS 416871 PREDNISONE Inactive PROAIR HFA 108 (90 BASE) MCG/ACT AERS 2 puffs four times a day as needed 2015 PROAIR HFA 108 (90 BASE) MCG/ACT AERS ALBUTEROL SULFATE Inactive HYDROCODONE-ACETAMINOPHEN 5-325 MG TABS 1 to 2 four times a day as needed for pain use until can be seen by specialist HYDROCODONE- ACETAMINOPHEN 5-325 MG TABS 103608 HYDROCODONE-ACETAMINOPHEN Inactive TESSALON PERLES 100 MG CAP 1 to 2 tablets by mouth 3 times daily as needed for cough TESSALON PERLES 100 MG CAP 026366 BENZONATATE Inactive CHANTIX STARTING MONTH EARNEST 0.5 [...] Pain 2015 DICLOFENAC SODIUM 50 MG TBEC 274831 DICLOFENAC SODIUM Inactive TOPAMAX 50 MG ORAL TABS 1 tab twice daily TOPAMAX 50 MG ORAL TABS 454463 TOPIRAMATE Inactive VIIBRYD 10 MG ORAL TABS Take 1 tablet once a day VIIBRYD 10 MG ORAL TABS VILAZODONE HCL Inactive LEVOFLOXACIN 500 MG ORAL TABS po daily LEVOFLOXACIN 500 MG ORAL TABS 030616 LEVOFLOXACIN Inactive METHYLPREDNISOLONE 4 MG ORAL TABS po daily METHYLPREDNISOLONE 4 MG ORAL TABS 231517 METHYLPREDNISOLONE Inactive OXYCODONE HCL ER 10 MG ORAL T12A 1/2 tab by mouth every 4 hours prn OXYCODONE HCL ER 10 MG ORAL T12A OXYCODONE HCL Inactive FLAGYL 500 MG TAB 1 tablet by mouth bid FLAGYL 500 MG TAB 952124 METRONIDAZOLE Inactive MONISTAT 7 COMBO PACK WOODROW 100 & 2 MG-% (9GM) VAG KIT 1 applicatorful per vagina q pm x 7 MONISTAT 7 COMBO PACK WOODROW 100 & 2 MG-% (9GM) VAG KIT MICONAZOLE NITRATE Inactive BACTRIM DS 800-160 MG TABS 1 twice a day BACTRIM DS 800-160 MG TABS 291498 SULFAMETHOXAZOLE-TRIMETHOPRIM Inactive TRAMADOL HCL 50 MG TABS 1/2-1 tab TID PRN TRAMADOL HCL 50 MG TABS 000007 TRAMADOL HCL Inactive ABILIFY MAINTENA 400 MG IM SUSR 400mg injection every 26 days ABILIFY MAINTENA 400 MG IM SUSR ARIPIPRAZOLE Inactive KLONOPIN 1 MG ORAL TABS 1 tab po TID KLONOPIN 1 MG ORAL TABS 881562 CLONAZEPAM Inactive ADVAIR DISKUS 250-50 MCG/DOSE INH AEPB 1 puff twice a day for asthma ADVAIR DISKUS 250-50 MCG/DOSE INH AEPB FLUTICASONE- SALMETEROL Inactive BENADRYL 25 MG CAP 4 po at bedtime for insomnia BENADRYL 25 MG CAP DIPHENHYDRAMINE HCL Inactive PREDNISONE 20 MG TABS 2 daily for 5 days then 1 daily for 5 days PREDNISONE 20 MG TABS 514133 PREDNISONE Inactive HYDROCODONE-ACETAMINOPHEN 5-325 MG ORAL TABS 1 tab two times a day HYDROCODONE-ACETAMINOPHEN 5-325 MG ORAL TABS 641628 HYDROCODONE-ACETAMINOPHEN Inactive ZITHROMAX Z-EARNEST 250 MG TABS 2 today and then 1 daily for 4 days ZITHROMAX Z-EARNEST 250 MG TABS [id number] AZITHROMYCIN Inactive GUAIFENESIN-CODEINE 100-10 MG/5ML SYRP 5ml every 4 to 6 hours as needed for cough GUAIFENESIN-CODEINE 100-10 MG/5ML SYRP [id number] GUAIFENESIN-CODEINE Inactive HALOPERIDOL 10 MG ORAL TABS 1 tab q.d HALOPERIDOL 10 MG ORAL TABS [id number] HALOPERIDOL Inactive ASPIRIN 325 MG ORAL TABS 1 tab q.d ASPIRIN 325 MG ORAL TABS [id number] ASPIRIN Inactive FLUTICASONE PROPIONATE 50 MCG/ACT SUSP 2 sprays each nostril daily before bed. FLUTICASONE PROPIONATE 50 MCG/ACT SUSP [id number] FLUTICASONE PROPIONATE Inactive ZOFRAN 4 MG TABS 1 po q6hr PRN Nausea ZOFRAN 4 MG TABS 221436 ONDANSETRON HCL Inactive KEFLEX 500 MG CAP 1 po qid KEFLEX 500 MG CAP 767209 CEPHALEXIN Inactive ACETAMINOPHEN-CODEINE 120-12 MG/5ML SOLN 5 ml by mouth every 4-6 hours if needed for cough ACETAMINOPHEN-CODEINE 120-12 MG/5ML SOLN 806658 ACETAMINOPHEN-CODEINE Inactive PREDNISONE 20 MG TAB 1 tablet daily x 4 days PREDNISONE 20 MG TAB 126876 PREDNISONE Inactive TROPICAMIDE 0.5 % OPHTH SOLN 1 drop PRN eye spasms TROPICAMIDE 0.5 % [facility] 160074 TROPICAMIDE Inactive LEVAQUIN 500 MG TABS 1 daily for infection LEVAQUIN 500 MG TABS 444842 LEVOFLOXACIN Inactive PREDNISONE 10 MG TABS 2 daily for 5 days then 1 daily for 5 days PREDNISONE 10 MG TABS 931524 PREDNISONE Inactive EQ NICOTINE 21 MG/24HR TRANS [...] for cough TESSALON PERLES 100 MG CAPS 975797 BENZONATATE Inactive CEFDINIR 300 MG CAPS by mouth twice a day CEFDINIR 300 MG CAPS 441023 CEFDINIR Inactive PREDNISONE 20 MG TAB 2 tabs daily for 3 days, 1 tab daily for 3 days, 1/2 tab daily for 2 days PREDNISONE 20 MG TAB 014404 PREDNISONE Inactive BACTRIM DS 800-160 MG TABS 1 po BID x 7 days BACTRIM DS 800-160 MG TABS 095499 SULFAMETHOXAZOLE-TRIMETHOPRIM Inactive DIFLUCAN 150 MG TABS 1 pill every other day x 2 doses DIFLUCAN 150 MG TABS 19751126 FLUCONAZOLE Inactive BACTRIM DS 800-160 MG TABS 1 pill by mouth twice daily BACTRIM DS 800-160 MG TABS 556340 SULFAMETHOXAZOLE-TRIMETHOPRIM Inactive KEFLEX 500 MG CAP 1 po TID x 10 days KEFLEX 500 MG CAP 926278 CEPHALEXIN Inactive Advance Directives Directive Description Start Date DISCUSSED WITH PATIENT -- NO DECISION MADE Vital Signs Date Name Value Unit Range Description blood pressure, diastolic - 8462-4 93 mm[Hg] [...] DIFF/PLT)/6399, COMPREHENSIVE METABOLIC PANEL, ... - Hematology mean corpuscular volume, RBC 91.4 fL 80.0-100.0 mean corpuscular hemoglobin concentration, RBC 32.8 G/DL % 32.0- 36.0 red blood cell distribution width 12.9 % 11.0-15.0 platelet count 443 THOUSAND/UL 10*3/mm3 063-562 5406/03/01 mean platelet volume 8.2 fL 7.5-12.5 leukocyte [...] % 11.0-15.0 platelet count 349 THOUSAND/UL 10*3/mm3 846-715 8787/04/12 mean platelet volume 8.4 fL 7.5-12.5 mean corpuscular hemoglobin, RBC 29.9 pg 27.0-33.0 leukocyte count, blood 16.6 THOUSAND/UL 10*3/mm3 3.8-10.8 erythrocyte (RBC) count 4.46 MILLION/UL 10*6/mm3 3.80-5.10 hemoglobin, blood 13.3 g/dL 11.7-15.5 hematocrit, blood 40.7 % 35.0-45.0 Lab Report: CBC, Thyroid Stimulating Hormone (L) [...] 369 10^3/MM^3 10*3/mm3 142-424 Lab Report: Chlamydia/GC APTIMA/91274 - Lab chlamydia DNA probe NOT DETECTED NOT DETECTED Lab Report: Chlamydia/GC APTIMA/68104 - Microbiology Neisseria gonorrhoeae DNA probe NOT DETECTED NOT DETECTED Lab Report: Chlamydia/GC APTIMA/19436, Urinalysis, Complete, with Reflex ... - Lab chlamydia DNA probe NOT DETECTED NOT DETECTED Lab Report: Chlamydia/GC APTIMA/06190, Urinalysis, Complete, with Reflex ... - Microbiology Neisseria gonorrhoeae DNA probe NOT DETECTED NOT DETECTED Lab Report: Chlamydia/GC APTIMA/09442, Urinalysis, Complete, with Reflex ... - Urinalysis microalbumin/total urine volume 2 mg/L Units converted. See lab report for original value. microalbumin/creatinine ratio, urine 9 MCG/MG CREAT mg/L <30 Lab Report: Comp. Metabolic Panel - Chemistry sodium, serum 140 mmol/L 280-446 2138/08/08 carbon dioxide, venous blood 33.7 mmol/L 21.0-32.0 [...] 27.6 mmol/L 21.0-32.0 sodium, serum 142 mmol/L 588-684 4041/06/08 urea nitrogen, blood 8 mg/dL 7-18 creatinine, [...] - Urinalysis glucose, urine, semiquantitative Negative Negative pH, urine, semiquantitative 6.0 5.0-8.5 urobilinogen, urine, [...] mg/dL Encounters Code Encounter Date Provider Facility CPT-66969 Level 3 Est. Patient 10:00:25 CDT Suzan Boo [facility] CPT-57540 Level 3 Est. Patient 10:29:30 CDT Suzan Boo [facility] CPT-67049 Level 3 Est. Patient 11:04:38 CDT Renzo Thornton [facility] CPT-23672 Level 3 Est. Patient 11:15:58 FORM BLOCK MAKER Renzo Thornton [facility] CPT-35472 Level 3 Est. Patient 15:28:23 FORM BLOCK MAKER Suzan Boo [facility] CPT-92894 Level 4 Est. Patient 10:20:54 FORM BLOCK MAKER Suzan Boo [facility] CPT-60151 Level 3 Est. Patient 11:47:37 FORM BLOCK MAKER Ahmet Carbajal MD [facility] CPT-70388 Level 3 Est. Patient 10:40:11 FORM BLOCK MAKER Ahmet Carbajal MD [facility] CPT-72407 Level 3 Est. Patient 15:07:06 FORM BLOCK MAKER Neeraj Collins MD [facility] CPT-79887 Level 4 Est. Patient 14:45:00 FORM BLOCK MAKER Ahmet Carbajal MD [facility] CPT-48689 Level 3 Est. Patient 13:59:59 CDT 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 [facility] CPT-97105 Level 3 Est. Patient 18:18:53 CDT Neeraj Collins MD [facility] CPT-07130 Level 3 Est. Patient 15:50:44 CDT Vishal Hui MD [facility] CPT-12368 Level 3 Est. Patient 11:36:17 CDT Ahmet Carbajal MD [facility] CPT-35139 Level 3 Est. Patient 13:29:16 CDT Vishal Hui MD [facility] CPT-12085 Level 3 Est. Patient 14:27:52 CDT Neeraj Collins MD [facility] CPT-80957 Level 3 Est. Patient 08:56:03 CDT 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 [facility] CPT-47113 Level 4 Est. Patient 12:11:48 CDT Fabiola Johnson [facility] CPT-29092 Level 3 New Patient 16:53:37 CDT Albert Caldera MD [facility] CPT-63065 Level 3 Est. Patient 11:25:49 CDT Renzo Thornton DO [facility] CPT-36719 Level 3 Est. Patient 15:22:01 CDT Ahmet Carbajal MD [facility] CPT-14863 Level 4 Est. Patient 09:00:51 FORM BLOCK MAKER Vishal Hui MD [facility] CPT-30131 Level 3 Est. Patient 11:37:33 FORM BLOCK MAKER Vishal Hui MD [facility] CPT-80137 Level 3 Est. Patient 08:41:09 FORM BLOCK MAKER Vishal Hui MD [facility] CPT-59288 Level 4 Est. Patient 10:19:35 FORM BLOCK MAKER Vishal uHi MD [facility] CPT-15963 Level 3 Est. Patient 13:35:45 CDT Vishal Hui MD [facility] CPT-51456 Level 4 Est. Patient 10:08:37 CDT Vishal Hui MD [facility]-69148 Level 3 Est. Patient 11:22:10 CDT Vishal Hui MD [facility] CPT-43474 Level 3 Est. Patient 11:03:32 CDT Sahara Rodriguez MD [facility]-29427 Level 3 Est. Patient 09:41:35 CDT Vishal Hui MD [facility]-07135 Level 3 Est. Patient 12:00:41 CDT Neeraj Collins MD [facility]-65444 Level 3 Est. Patient 09:16:24 CDT Vishal Hui MD [facility] CPT-64949 Level 4 Est. Patient 13:59:09 CDT Neeraj Collins MD [facility] CPT-00914 Level 3 Est. Patient 15:19:43 CDT Rnezo Thornton DO [facility] CPT-89052 Level 3 Est. Patient 18:10:26 CDT Saahra Rodriguez MD [facility]-19058 Level 3 Est. Patient 14:49:50 CDT Vishal Hui MD [facility]-74583 Level 4 Est. Patient 18:41:46 CDT Neeraj Collins MD [facility] CPT-03162 Level 4 Est. Patient 09:18:38 FORM BLOCK MAKER Vishal Hui MD [facility]-75808 Level 3 Est. Patient 14:43:55 FORM BLOCK MAKER Vishal Hui MD [facility] CPT-79440 Level 3 Est. Patient 15:26:33 FORM BLOCK MAKER Sahara Rodriguez MD [facility]-98807 Level 3 Est. Patient 10:32:14 FORM BLOCK MAKER Vishal Hui MD [facility] CPT-25772 Level 3 Est. Patient 15:12:52 FORM BLOCK MAKER Vishal Hui MD [facility] CPT-02159 Level 4 Est. Patient 09:19:27 CDT Vishal Hui MD [facility] CPT-11240 Level 3 Est. Patient 15:53:00 CDT Renzo Thornton [facility] CPT-60024 Level 3 Est. Patient 15:50:30 CDT Renzo Thornton [facility] CPT-99020 Level 3 Est. Patient 16:55:24 CDT Vishal Hui MD [facility] Procedures Code Procedure Name Date Entry Date Standard Description CPT-14718 Venipuncture Draw Fee 08:41:12 CDT CPT-81833 Abd compl w upright - XRAY USE ONLY 10:27:59 CDT 06/28 CPT-18084 Smoking Cessation counseling 11:15:58 FORM BLOCK MAKER CPT-G0439 [facility] Annual Wellness Exam 09:30:58 FORM BLOCK MAKER CPT-75548 TSH - LAB USE ONLY 08:50:26 FORM BLOCK MAKER CPT-31910 CBC - LAB USE ONLY 08:50:26 FORM BLOCK MAKER CPT-87410 Venipuncture Draw Fee 08:50:26 FORM BLOCK MAKER CPT-25637 Abx/Therapy Injection 17:34:30 FORM BLOCK MAKER CPT-20282 Nexplanon Removal with Reinsertion 14:09:32 CDT CPT-J7307 Nexplanon (Implant) 14:09:32 CDT CPT-OV Office Visit 14:09:32 CDT CPT-07904 UA w micro - LAB USE ONLY 16:21:13 CDT CPT-09343 [place] Mount - LAB USE ONLY 16:21:13 CDT CPT-91289 First Vx - Ix admin for Medicare patients 14:37:47 CDT CPT-53609 Fluzone Preservative Free Intramuscular Suspension 14:37 :47 CDT CPT-23203 Abx/Therapy Injection 13:54:22 CDT CPT-00728 Abx/Therapy Injection 08:47:09 CDT CPT-50371 Abx/Therapy Injection 13:29:56 CDT CPT-79874 Abx/Therapy Injection 08:36:16 CDT CPT-12413 [place] - LAB USE ONLY 17:44:58 CDT CPT-34097 UA w micro - LAB USE ONLY 17:44:58 CDT CPT-93045 CMP - LAB USE ONLY 17:44:58 CDT CPT-06479 Venipuncture Draw Fee 17:44:58 CDT CPT-62784 Cervical Min 4V - XRAY USE ONLY 09:01:40 CDT CPT-51859 Chest 2V Frontal and Lat - XRAY USE ONLY 11:06:31 CDT CPT-94894 EKG Trac and Interp - XRAY USE ONLY 11:31:43 CDT 08/26 CPT-J3420 Vitamin B12 1000mcg (Cyanocobalamin) 08:10:26 FORM BLOCK MAKER 04/12 CPT-17790 Abx/Therapy Injection 08:10:26 FORM BLOCK MAKER CPT-G0438 Initial Annual Wellness Exam 19:01:01 FORM BLOCK MAKER CPT-J3420 Vitamin B12 1000mcg (Cyanocobalamin) 16:57:46 CDT 08/14 CPT-66064 Recombivax HB Injection Suspension 5 MCG/0.5ML 08:37:50 FORM BLOCK MAKER CPT-48525 Immunization Single Admin 08:37:50 FORM BLOCK MAKER CPT-J3420 Vitamin B12 1000mcg (Cyanocobalamin) 08:32:16 FORM BLOCK MAKER 03/11 CPT-84019 Abx/Therapy Injection 08:32:16 FORM BLOCK MAKER CPT-99430 Chest 2V Frontal and Lat 11:46:38 FORM BLOCK MAKER CPT-97077 Venipuncture Draw Fee 09:12:45 FORM BLOCK MAKER CPT-J3420 Vitamin B12 1000mcg (Cyanocobalamin) 08:50:15 FORM BLOCK MAKER 02/08 CPT-02008 Abx/Therapy Injection 08:50:15 FORM BLOCK MAKER CPT-Cryo Cryotherapy 10:19:35 FORM BLOCK MAKER CPT-000 Give Appropriate Flu Vaccine 09:22:16 CDT CPT-J3420 Vitamin B12 1000mcg (Cyanocobalamin) 19:08:57 CDT 01/11 CPT-51263 Abx/Therapy Injection 19:08:57 CDT CPT-J3420 Vitamin B12 1000mcg (Cyanocobalamin) 08:19:08 CDT 12/11 CPT-47794 Abx/Therapy Injection 08:19:08 CDT CPT-J3420 Vitamin B12 1000mcg (Cyanocobalamin) 14:48:00 CDT 11/09 CPT-67942 Abx/Therapy Injection 14:47:59 CDT CPT-J3420 Vitamin B12 1000mcg (Cyanocobalamin) 08:34:04 CDT 10/09 CPT-84148 Abx/Therapy Injection 08:34:04 CDT CPT-J3420 Vitamin B12 1000mcg (Cyanocobalamin) 09:18:52 CDT 09/11 CPT-66639 Abx/Therapy Injection 09:18:52 CDT CPT-J3420 Vitamin B12 1000mcg (Cyanocobalamin) 08:35:44 CDT 09/04 CPT-97671 Abx/Therapy Injection 08:35:44 CDT CPT-74233 Immunization Single Admin 11:07:16 CDT CPT-97916 Hepatitis B adult IM 11:07:16 CDT CPT-J3420 Vitamin B12 1000mcg (Cyanocobalamin) 11:00:49 CDT 08/28 CPT-J1040 Depo Medrol 80 mg (Methyl Prednisolone Acetate) 11:00: 49 CDT CPT-41223 Abx/Therapy Injection 11:00:49 CDT CPT-J1040 Depo Medrol 80 mg (Methyl Prednisolone Acetate) 09:16: 23 CDT CPT-J3420 Vitamin B12 1000mcg (Cyanocobalamin) 08:27:05 CDT 08/20 CPT-16654 Abx/Therapy Injection 08:27:05 CDT CPT-10005 Recombivax HB Injection Suspension 5 MCG/0.5ML 10:00:41 CDT CPT-01377 Administration single or combination vaccine inc oral 10 :00:41 CDT CPT-52957 Sono transvag pelvis non OB uterus ovaries cervix 16:36: 57 CDT CPT-87599 LS spine comp w obliq 09:50:55 FORM BLOCK MAKER CPT-72696 Abd compl w upright 09:50:55 FORM BLOCK MAKER CPT-J1100 Decadron 4mg (Dexamethasone) 15:51:24 FORM BLOCK MAKER CPT-J1030 Depo Medrol 40 mg (Methyl Prednisolone Acetate) 15:51: 24 FORM BLOCK MAKER CPT-03304 Abx/Therapy Injection 15:51:24 FORM BLOCK MAKER CPT-J1100 Decadron 4mg (Dexamethasone) 15:26:33 FORM BLOCK MAKER CPT-J1030 Depo Medrol 40 mg (Methyl Prednisolone Acetate) 15:26: 33 FORM BLOCK MAKER CPT-98762 Sono retroperitoneal complete kidneys and bladder 17:15: 30 CDT CPT-73939 Abd compl w upright 16:09:25 CDT CPT-J1100 Decadron 8mg (Dexamethasone) 17:07:57 CDT CPT-68275 Abx/Therapy Injection 17:07:57 CDT CPT-J1100 Decadron 8mg (Dexamethasone) 16:55:24 CDT CPT-34935 Chest 2V Frontal and Lat 16:32:44 CDT
--- OUTSIDE RECORDS SUMMARY | 2016-11-04 11:56 | XMS REPORT | Clinical Summary ---
Author Author Admin, E Organization [facility] Address Unknown Phone Unavailable Allergies, Adverse Reactions, [...] use disorder-smoking cessation discussed 305.1 Resolved Vishal uHi MD Tobacco use disorder Abdominal pain 789.00 [...] Hui MD Leukocytosis, unspecified UTI 599.0 Resolved Vsihal Hui MD Urinary tract infection, site not specified Headache, atypical 784.0 Resolved Albert Caldera MD Headache Elevated blood glucose 790.29 Resolved Vishal Hui MD Other abnormal glucose Polyarthralgia 719.49 Active Vishal Hui MD Pain in joint involving multiple sites Morbid obesity 278.01 Active Juliet Kibmrough APRN Morbid obesity 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 Active [...] Nocturnal hypoxia 799.02 Active Fabiola Johnson RETAIL LE[employer]ING [employer]ENT Hypoxemia Neck pain 723.1 Resolved Vishal Hui [...] Ahmet Carbajal MD Generalized anxiety disorder Emergency Department Clinician well woman exam V72.31 Active Suzan Boo [...] then 1 daily for 4 days AZITHROMYCIN 45523073872 Active Suzan Boo APRN Active PREDNISONE 10 MG TABS 2 daily for 5 days then 1 daily for 5 days PREDNISONE 72333220565 Active Suzan Boo APRN Active CLONAZEPAM 1 MG ORAL TABS 1 twice a day and an additional 1 tablet every other day as needed for pseudoseizures or anxiety CLONAZEPAM 01628716870 Active Ahmet Carbajal MD Active HYDROCODONE-ACETAMINOPHEN 5-325 MG ORAL TABS 1 tab two times a day HYDROCODONE-ACETAMINOPHEN 64636932199 No Longer Active Ahmet Carbajal MD Active LAMICTAL 100 MG ORAL TABS 1 tab 2 times qd. LAMOTRIGINE 14875561462 Active Ahmet Carbajal MD Active PREDNISONE 20 MG TABS 2 daily for 5 days then 1 daily for 5 days PREDNISONE 12012864350 No Longer Active Ahmet Carbajal MD Active FLUTICASONE PROPIONATE 50 MCG/ACT SUSP 1 to 2 sprays each nostril daily for allergies FLUTICASONE PROPIONATE 33554300925 Active Tila Valenzuela Active GUAIFENESIN-CODEINE 100-10 MG/5ML SYRP 5ml every 4 to 6 hours as needed for cough GUAIFENESIN-CODEINE 29011167722 Active Ahmet Carbajal MD Active BENADRYL 25 MG CAP 4 po at bedtime for insomnia DIPHENHYDRAMINE HCL 42034579455 No Longer Active Ahmet Carbajal MD Active ADVAIR DISKUS 250-50 MCG/DOSE INH AEPB 1 puff twice a day for asthma FLUTICASONE-SALMETEROL 14190205056 No Longer Active Ahmet Carbajal MD Active KLONOPIN 1 MG ORAL TABS 1 tab po TID CLONAZEPAM 91577078224 No Longer Active Ahmet Carbajal MD Active ABILIFY MAINTENA 400 MG IM SUSR 400mg injection every 26 days ARIPIPRAZOLE 76650237752 No Longer Active Ahmet Carbajal MD Active HALOPERIDOL 10 MG ORAL TABS 1 tab q.d HALOPERIDOL 11981896665 Active Ahmet Carbajal MD Active ASPIRIN 325 MG ORAL TABS 1 tab q.d ASPIRIN 49694855436 Active Ahmet Carbajal MD Active TRAMADOL HCL 50 MG TABS 1/2-1 tab TID PRN TRAMADOL HCL 45404156939 No Longer Active Ahmet Carbajal MD Active BACTRIM DS 800-160 MG TABS 1 twice a day SULFAMETHOXAZOLE- TRIMETHOPRIM 18102966194 No Longer Active Ahmet Carbajal MD Active PROAIR HFA 108 (90 BASE) MCG/ACT AERS 2 puffs four times a day as needed 2015 ALBUTEROL SULFATE 22176279328 Active Ahmet Carbajal MD Active EQ NICOTINE 21 MG/24HR TRANS PT24 Apply daily to stop smoking NICOTINE 74989044876 Active Ahmet Carbajal MD Active MONISTAT 7 COMBO PACK WOODROW 100 & 2 MG-% (9GM) VAG KIT 1 applicatorful per vagina q pm x 7 MICONAZOLE NITRATE 41740966482 No Longer Active Ahmet Carbajal MD Active FLAGYL 500 MG TAB 1 tablet by mouth bid METRONIDAZOLE 95152295320 No Longer Active Ahmet Carbajal MD Active OXYCODONE HCL ER 10 MG ORAL T12A 1/2 tab by mouth every 4 hours prn OXYCODONE HCL 76533603230 No Longer Active Ahmet Carbajal MD Active METHYLPREDNISOLONE 4 MG ORAL TABS po daily METHYLPREDNISOLONE 12221800090 No Longer Active Ahmet Carbajal MD Active LEVOFLOXACIN 500 MG ORAL TABS po daily LEVOFLOXACIN 39824784109 No Longer Active Ahmet Carbajal MD Active VIIBRYD 10 MG ORAL TABS Take 1 tablet once a day VILAZODONE HCL 29344443765 No Longer Active Ahmet Carbajal MD Active TOPAMAX 50 MG ORAL TABS 1 tab twice daily TOPIRAMATE 50764716516 No Longer Active Ahmet Carbajal MD Active DICLOFENAC SODIUM 50 MG TBEC 1 tablet by mouth four times daily PRN Pain 2015 DICLOFENAC SODIUM 71227222080 No Longer Active Ahmet Carbajal MD Active ADZENYS XR-ODT 6.3 MG ORAL TBED 1 tab po daily for ADHD AMPHETAMINE 68462181723 No Longer Active Ahmet Carbajal MD Active CHANTIX 1 MG TABS 1 twice a day to help quit smoking VARENICLINE TARTRATE 66586623275 No Longer Active Dipika Burgos MD Active CHANTIX STARTING MONTH EARNEST 0.5 MG X 11 & 1 MG X 42 TABS take as directed 2015 VARENICLINE TARTRATE 81762494839 No Longer Active Dipika Burgos MD Active TESLIZ PERLES 100 MG CAP 1 to 2 tablets by mouth 3 times daily as needed for cough BENZONATATE 68538700756 No Longer Active 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 APRN Active IMITREX 50 MG ORAL TABS 0.5 po x 1 PRN Headache. May repeat dose x 1 in 2 hours if needed SUMATRIPTAN SUCCINATE 41076424820 Active Ahmet Carbajal MD Active HYDROCODONE-ACETAMINOPHEN 5-325 MG TABS 1 to 2 four times a day as needed for pain use until can be seen by specialist HYDROCODONE- ACETAMINOPHEN 93019314977 No Longer Active Vishal Hui MD Active PROAIR HFA 108 (90 BASE) MCG/ACT AERS 2 puffs four times a day as needed 2015 ALBUTEROL SULFATE 84722678440 No Longer Active Vishal Hui MD Active PREDNISONE 20 MG TABS 2 daily for 5 days then 1 daily for 5 days PREDNISONE 30296267748 No Longer Active Vishal Hui MD Active ZITHROMAX Z-EARNEST 250 MG TABS 2 today and then 1 daily for 4 days AZITHROMYCIN 06011215806 No Longer Active Vishal Hui MD Active DICLOFENAC POTASSIUM TABS Take 1 tablet twice a day (pt. is not sure of the dose.) DICLOFENAC POTASSIUM TABS 26094545768 No Longer Active Vishal Hui MD Active VERAPAMIL HCL ER 120 MG ORAL CR-TABS Take 1 tablet by mouth twice a day. VERAPAMIL HCL 63141119582 Active Vishal Hui MD Active FLAGYL 500 MG TAB 1 tablet by mouth bid METRONIDAZOLE 07106582436 No Longer Active Vishal Hui MD Active FLUTICASONE PROPIONATE 50 MCG/ACT SUSP 2 sprays each nostril daily before bed. FLUTICASONE PROPIONATE 94667008819 Active Fabiola Johnson APRN Active VALIUM 5 MG TAB Take 1-2 tablets daily DIAZEPAM 16704523503 No Longer Active Fabiola Johnson APRN Active METOPROLOL TARTRATE 25 MG ORAL TABS 1/2 tablet twice daily for heart rate and blood pressure METOPROLOL TARTRATE 95745077945 No Longer Active Fabiola Johnson APRN Active MIRALAX ORAL POWD 17GMS DAILY IN WATER POLYETHYLENE GLYCOL 3350 04507701118 Active Bertha Kofi TAMARA Active MIRALAX PACK 1 po qd PRN Constipation POLYETHYLENE GLYCOL 3350 02506303270 No Longer Active Ahmet Carbajal MD Active MINIPRESS 2 MG CAPS 4 cap po at night PRAZOSIN HCL 24149374691 No Longer Active Ahmet Carbajal MD Active PIROXICAM 20 MG CAPS 1 cap po qd PRN Pain PIROXICAM 45988104641 No Longer Active Ahmet Carbajal MD Active TRAMADOL HCL 50 MG TABS 1-2 po TID PRN Pain TRAMADOL HCL 90595399533 No Longer Active Ahmet Carbajal MD Active METOPROLOL TARTRATE 50 MG TAB 1 po bid METOPROLOL TARTRATE 04410286300 No Longer Active Ahmet Carbajal MD Active ABILIFY 15 MG ORAL TABS 1 tab daily ARIPIPRAZOLE 04086157189 No Longer Active Ahmet Carbajal MD Active PROZAC 20 MG ORAL CAPS 1 tab daily FLUOXETINE HCL 52492413529 No Longer Active Ahmet Carbajal MD Active AMBIEN 5 MG ORAL TABS 1 tab at bedtime ZOLPIDEM TARTRATE 72586470428 No Longer Active Ahmet Carbajal MD Active PREDNISONE 20 MG TAB 2 tabs daily for 4 days, 1 tab daily for 4 days, 1/2 tab daily for 4 days PREDNISONE 53296050620 No Longer Active Ahmet Carbajal MD Active KEFLEX 500 MG CAP 1 po TID x 10 days CEPHALEXIN 16233478112 No Longer Active Vishal Hui MD Active SAPHRIS 5 MG SUBL 1 po bid ASENAPINE MALEATE 19834289956 No Longer Active 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 APRN Active LATUDA 80 MG TABS Take one by mouth daily LURASIDONE HCL 01189816084 No Longer Active 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 APRN Active AMLODIPINE BESYLATE 5 MG TABS 1 tablet by mouth daily AMLODIPINE BESYLATE 93413331959 No Longer Active 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 RETAIL LEASING AGENT Active AMITRIPTYLINE HCL 100 MG TAB one at hs AMITRIPTYLINE HCL 49790291484 No Longer Active Vishal Hui MD Active TRAZODONE HCL 100 MG TAB take 1 at bedtime TRAZODONE HCL 54247845227 No Longer Active Vishal Hui MD Active VYVANSE 40 MG CAPS 1 daily, LISDEXAMFETAMINE DIMESYLATE 01440063096 No Longer Active Vishal Hui MD Active IBUPROFEN 600 MG TAB 1 po TID PRN IBUPROFEN 61550946771 No Longer Active Vishal Hui MD Active PROZAC 20 MG CAP Take one by mouth daily FLUOXETINE HCL 68064500665 No Longer Active Vishal Hui MD Active ZOFRAN 4 MG TABS 1 po q6hr PRN Nausea ONDANSETRON HCL Active Vishal Hui MD Active BACTRIM DS 800-160 MG TABS 1 pill by mouth twice daily SULFAMETHOXAZOLE-TRIMETHOPRIM 49684792798 No Longer Active Sahara Rodriguez MD PhD Active DIFLUCAN 150 MG TAB 1 tablet by mouth daily FLUCONAZOLE 29676812469 No Longer Active Vishal Hui MD Active TIZANIDINE HCL 4 MG TABS 1 po q6hr PRN Muscle Spasm/Back Pain TIZANIDINE HCL 84756435953 Active Vishal Hui MD Active CLINDAMYCIN HCL 150 MG CAPS 1 four times a day CLINDAMYCIN HCL 68839182359 No Longer Active Neeraj Collins MD Active KEFLEX 500 MG ORAL CAPS 1 cap QID by mouth CEPHALEXIN 58101923697 No Longer Active Neeraj Collins MD Active DIFLUCAN 150 MG TABS 1 pill every other day x 2 doses FLUCONAZOLE 21072002775 No Longer Active Sahara Rodriguez MD PhD Active MELATONIN 3 MG CAPS 2 po q hs MELATONIN 83577072673 No Longer Active Sahara Rodriguez MD PhD Active MULTIVITAMINS CAPS Take one by mouth daily MULTIPLE VITAMIN 97185368252 No Longer Active Sahara Rodriguez MD PhD Active BACTRIM DS 800-160 MG TAB 1 tab by mouth twice daily TRIMETHOPRIM-SULFAMETHOXAZOLE 85629672316 No Longer Active Sahara Rodriguez MD PhD Active [employer] PROBIOTIC ORAL CHEW 2 daily po PROBIOTIC PRODUCT 44356693782 No Longer Active Sahara Rodriguez MD PhD Active BACTRIM DS 800-160 MG TABS 1 po BID x 7 days SULFAMETHOXAZOLE-TRIMETHOPRIM 33813329919 No Longer Active Vishal Hui MD Active CHANTIX STARTING MONTH EARNEST 0.5 MG X 11 & 1 MG X 42 TABS 0.5mg daily for 3 days , then 0.5mg BID for 4 days, then 1mg BID VARENICLINE TARTRATE 08942488833 No Longer Active TAMARA Gray Active VERAPAMIL HCL CR 120 MG TAB CR 1 po bid VERAPAMIL HCL 18090263968 No Longer Active Vishal Hui MD Active METOPROLOL SUCCINATE 50 MG TB24 1 tablet by mouth daily METOPROLOL SUCCINATE 09275721874 No Longer Active Vishal Hui MD Active SAPHRIS 10 MG SUBL 1 tab po bid ASENAPINE MALEATE 53664813040 No Longer Active Vishal Hui MD Active LISINOPRIL 20 MG TABS 1 tab po qd LISINOPRIL 18808730835 No Longer Active Vishal Hui MD Active LATUDA 20 MG TABS Take one by mouth daily LURASIDONE HCL 53120071424 No Longer Active Vishal Hui MD Active TRAZODONE HCL 50 MG TABS 1/2 tab po qd prn for anxiety TRAZODONE HCL 57102062326 No Longer Active Vishal Hui MD Active OMEPRAZOLE 20 MG TBEC 1 po q a.m. 30min prior to first food intake OMEPRAZOLE 44307201723 Active Vishal Hui MD Active RANITIDINE HCL 150 MG CAPS 1 twice a day RANITIDINE HCL 92136917105 Active Jioral Messilebron RETAIL LEASING AGENT Active LINZESS 290 MCG CAPS Take one by mouth daily LINACLOTIDE 95799538332 No Longer Active Vishal Hui MD Active SAPHRIS 5 MG SUBL 1 tab po qd ASENAPINE MALEATE 32148615985 No Longer Active Vishal Hui MD Active ZALEPLON 10 MG CAPS 1 cap po every other night ZALEPLON 67482823198 No Longer Active Vishal Hui MD Active LYRICA 50 MG CAPS 1 tab po TID PREGABALIN 90204995216 No Longer Active Vishal Hui MD Active LORATADINE 10 MG TABS 1 tab po qd LORATADINE 70789224764 No Longer Active Vishal Hui MD Active VERAPAMIL HCL ER 180 MG CR-TABS 1 tab po bid VERAPAMIL HCL 34029777458 No Longer Active Vishal Hui MD Active MIRALAX POWD 1 capfull once daily POLYETHYLENE GLYCOL 3350 47851238574 No Longer Active Vishal Hui MD Active PREDNISONE 20 MG TABS 1 tab po qd PREDNISONE 27178749741 No Longer Active Renzo Thornton DO Active LEVOFLOXACIN 500 MG TABS 1 tab po qd LEVOFLOXACIN 12789918677 No Longer Active Renzo Thornton DO Active BUSPIRONE HCL 15 MG TABS 1 tab po TID BUSPIRONE HCL 18695951929 No Longer Active Renzo Thornton DO Active BENZTROPINE MESYLATE 1 MG TABS 1 tab po qd BENZTROPINE MESYLATE 17151885428 No Longer Active Renzo Thornton DO Active ATENOLOL 25 MG TABS 1 tab po qd ATENOLOL 55846993987 No Longer Active Renzo Thornton DO Active ESCITALOPRAM OXALATE 20 MG TABS 1 tab po qd ESCITALOPRAM OXALATE 08141385444 No Longer Active Renzo Thornton DO Active ADVAIR DISKUS 250-50 MCG/DOSE AEPB 1 puff BID FLUTICASONE-SALMETEROL 23548454319 No Longer Active Renzo Thornton DO Active PREDNISONE 20 MG TAB 2 tabs daily for 3 days, 1 tab daily for 3 days, 1/2 tab daily for 2 days PREDNISONE 28498608741 No Longer Active Vishal Hui MD Active CEFDINIR 300 MG CAPS by mouth twice a day CEFDINIR 84021159198 No Longer Active Vishal Hui MD Active LANSOPRAZOLE 30 MG CPDR 1 cap po qd LANSOPRAZOLE 69948943328 No Longer Active Vishal Hui MD Active BACLOFEN 20 MG TABS 1 tab po tid BACLOFEN 77549794511 No Longer Active Vishal Hui MD Active ADVAIR DISKUS 250-50 MCG/DOSE AEPB 1 puff BID ADVAIR DISKUS 250-50 MCG/DOSE AEPB FLUTICASONE-SALMETEROL Inactive ESCITALOPRAM OXALATE 20 MG TABS 1 tab po qd ESCITALOPRAM OXALATE 20 MG TABS 749252 ESCITALOPRAM OXALATE Inactive ATENOLOL 25 MG TABS 1 tab po qd ATENOLOL 25 MG TABS 259709 ATENOLOL Inactive BENZTROPINE MESYLATE 1 MG TABS 1 tab po qd BENZTROPINE MESYLATE 1 MG TABS 633988 BENZTROPINE MESYLATE Inactive BUSPIRONE HCL 15 MG TABS 1 tab po TID BUSPIRONE HCL 15 MG TABS 056673 BUSPIRONE HCL Inactive LEVOFLOXACIN 500 MG TABS 1 tab po qd LEVOFLOXACIN 500 MG TABS 750184 LEVOFLOXACIN Inactive PREDNISONE 20 MG TABS 1 tab po qd PREDNISONE 20 MG TABS 393347 PREDNISONE Inactive MIRALAX POWD 1 capfull once daily MIRALAX POWD 782274 POLYETHYLENE GLYCOL 3350 Inactive VERAPAMIL HCL ER 180 MG CR-TABS 1 tab po bid VERAPAMIL HCL ER 180 MG CR-TABS VERAPAMIL HCL Inactive LORATADINE 10 MG TABS 1 tab po qd LORATADINE 10 MG TABS 708589 LORATADINE Inactive LYRICA 50 MG CAPS 1 tab po TID LYRICA 50 MG CAPS PREGABALIN Inactive ZALEPLON 10 MG CAPS 1 cap po every other night ZALEPLON 10 MG CAPS 572738 ZALEPLON Inactive SAPHRIS 5 MG SUBL 1 tab po qd SAPHRIS 5 MG SUBL ASENAPINE MALEATE Inactive TRAZODONE HCL 50 MG TABS 1/2 tab po qd prn for anxiety TRAZODONE HCL 50 MG TABS 208891 TRAZODONE HCL Inactive LATUDA 20 MG TABS Take one by mouth daily LATUDA 20 MG TABS LURASIDONE HCL Inactive LISINOPRIL 20 MG TABS 1 tab po qd LISINOPRIL 20 MG TABS 941143 LISINOPRIL Inactive SAPHRIS 10 MG SUBL 1 [...] twice daily BACTRIM DS 800-160 MG TAB 112234 TRIMETHOPRIM-SULFAMETHOXAZOLE Inactive MULTIVITAMINS CAPS Take one by mouth daily MULTIVITAMINS CAPS MULTIPLE VITAMIN Inactive MELATONIN 3 MG CAPS 2 po q hs MELATONIN 3 MG CAPS 19950526 MELATONIN Inactive KEFLEX 500 MG ORAL CAPS 1 cap QID by mouth KEFLEX 500 MG ORAL CAPS 730906 CEPHALEXIN Inactive CLINDAMYCIN HCL 150 MG CAPS 1 four times a day CLINDAMYCIN HCL 150 MG CAPS 262056 CLINDAMYCIN HCL Inactive DIFLUCAN 150 MG TAB 1 tablet by mouth daily DIFLUCAN 150 MG TAB 217152 FLUCONAZOLE Inactive PROZAC 20 MG CAP Take one by mouth daily PROZAC 20 MG CAP 571892 FLUOXETINE HCL Inactive IBUPROFEN 600 MG TAB 1 po TID PRN IBUPROFEN 600 MG TAB 249094 IBUPROFEN Inactive VYVANSE 40 MG CAPS 1 daily, VYVANSE 40 MG CAPS LISDEXAMFETAMINE DIMESYLATE Inactive TRAZODONE HCL 100 MG TAB take 1 at bedtime TRAZODONE HCL 100 MG TAB 919762 TRAZODONE HCL Inactive AMITRIPTYLINE HCL 100 MG TAB one at hs AMITRIPTYLINE HCL 100 MG TAB 437971 AMITRIPTYLINE HCL Inactive AMLODIPINE BESYLATE 5 MG TABS 1 tablet by mouth daily AMLODIPINE BESYLATE 5 MG TABS 526308 AMLODIPINE BESYLATE Inactive LATUDA 80 MG TABS Take one by mouth daily LATUDA 80 MG TABS LURASIDONE HCL Inactive SAPHRIS 5 MG SUBL 1 po bid SAPHRIS 5 MG SUBL ASENAPINE MALEATE Inactive PREDNISONE 20 MG TAB 2 tabs daily for 4 days, 1 tab daily for 4 days, 1/2 tab daily for 4 days PREDNISONE 20 MG TAB 129141 PREDNISONE Inactive AMBIEN 5 MG ORAL TABS 1 tab at bedtime AMBIEN 5 MG ORAL TABS 260553 ZOLPIDEM TARTRATE Inactive PROZAC 20 MG ORAL CAPS 1 tab daily PROZAC 20 MG ORAL CAPS 646892 FLUOXETINE HCL Inactive ABILIFY 15 MG ORAL TABS 1 tab daily ABILIFY 15 MG ORAL TABS 720777 ARIPIPRAZOLE Inactive METOPROLOL TARTRATE 50 MG TAB 1 po bid METOPROLOL TARTRATE 50 MG TAB 601703 METOPROLOL TARTRATE Inactive TRAMADOL HCL 50 MG TABS 1-2 po TID PRN Pain TRAMADOL HCL 50 MG TABS 597742 TRAMADOL HCL Inactive PIROXICAM 20 MG CAPS 1 cap po qd PRN Pain PIROXICAM 20 MG CAPS 460837 PIROXICAM Inactive MINIPRESS 2 MG CAPS 4 cap po at night MINIPRESS 2 MG CAPS 647460 PRAZOSIN HCL Inactive MIRALAX PACK 1 po qd PRN Constipation MIRALAX PACK 277523 POLYETHYLENE GLYCOL 3350 Inactive METOPROLOL TARTRATE 25 MG ORAL TABS 1/2 tablet twice daily for heart rate and blood pressure METOPROLOL TARTRATE 25 MG ORAL TABS 548408 METOPROLOL TARTRATE Inactive VALIUM 5 MG TAB Take 1-2 tablets daily VALIUM 5 MG TAB 372557 DIAZEPAM Inactive FLAGYL 500 MG TAB 1 tablet by mouth bid FLAGYL 500 MG TAB 419630 METRONIDAZOLE Inactive DICLOFENAC POTASSIUM TABS Take 1 tablet twice a day (pt. is not sure of the dose.) DICLOFENAC POTASSIUM TABS DICLOFENAC POTASSIUM TABS Inactive ZITHROMAX Z-EARNEST 250 MG TABS 2 today and then 1 daily for 4 days ZITHROMAX Z-EARNEST 250 MG TABS 3571583 AZITHROMYCIN Inactive PREDNISONE 20 MG TABS 2 daily for 5 days then 1 daily for 5 days PREDNISONE 20 MG TABS 470195 PREDNISONE Inactive PROAIR HFA 108 (90 BASE) MCG/ACT AERS 2 puffs four times a day as needed 2015 PROAIR HFA 108 (90 BASE) MCG/ACT AERS ALBUTEROL SULFATE Inactive HYDROCODONE-ACETAMINOPHEN 5-325 MG TABS 1 to 2 four times a day as needed for pain use until can be seen by specialist HYDROCODONE- ACETAMINOPHEN 5-325 MG TABS 329331 HYDROCODONE-ACETAMINOPHEN Inactive TESSALON PERLES 100 MG CAP 1 to 2 tablets by mouth 3 times daily as needed for cough TESSALON PERLES 100 MG CAP 511656 BENZONATATE Inactive CHANTIX STARTING MONTH EARNEST 0.5 [...] Pain 2015 DICLOFENAC SODIUM 50 MG TBEC 725494 DICLOFENAC SODIUM Inactive TOPAMAX 50 MG ORAL TABS 1 tab twice daily TOPAMAX 50 MG ORAL TABS 484606 TOPIRAMATE Inactive VIIBRYD 10 MG ORAL TABS Take 1 tablet once a day VIIBRYD 10 MG ORAL TABS VILAZODONE HCL Inactive LEVOFLOXACIN 500 MG ORAL TABS po daily LEVOFLOXACIN 500 MG ORAL TABS 958297 LEVOFLOXACIN Inactive METHYLPREDNISOLONE 4 MG ORAL TABS po daily METHYLPREDNISOLONE 4 MG ORAL TABS 556522 METHYLPREDNISOLONE Inactive OXYCODONE HCL ER 10 MG ORAL T12A 1/2 tab by mouth every 4 hours prn OXYCODONE HCL ER 10 MG ORAL T12A OXYCODONE HCL Inactive FLAGYL 500 MG TAB 1 tablet by mouth bid FLAGYL 500 MG TAB 953320 METRONIDAZOLE Inactive MONISTAT 7 COMBO PACK WOODROW 100 & 2 MG-% (9GM) VAG KIT 1 applicatorful per vagina q pm x 7 MONISTAT 7 COMBO PACK WOODROW 100 & 2 MG-% (9GM) VAG KIT MICONAZOLE NITRATE Inactive BACTRIM DS 800-160 MG TABS 1 twice a day BACTRIM DS 800-160 MG TABS 135485 SULFAMETHOXAZOLE-TRIMETHOPRIM Inactive TRAMADOL HCL 50 MG TABS 1/2-1 tab TID PRN TRAMADOL HCL 50 MG TABS 660531 TRAMADOL HCL Inactive ABILIFY MAINTENA 400 MG IM SUSR 400mg injection every 26 days ABILIFY MAINTENA 400 MG IM SUSR ARIPIPRAZOLE Inactive KLONOPIN 1 MG ORAL TABS 1 tab po TID KLONOPIN 1 MG ORAL TABS 548133 CLONAZEPAM Inactive ADVAIR DISKUS 250-50 MCG/DOSE INH AEPB 1 puff twice a day for asthma ADVAIR DISKUS 250-50 MCG/DOSE INH AEPB FLUTICASONE- SALMETEROL Inactive BENADRYL 25 MG CAP 4 po at bedtime for insomnia BENADRYL 25 MG CAP DIPHENHYDRAMINE HCL Inactive PREDNISONE 20 MG TABS 2 daily for 5 days then 1 daily for 5 days PREDNISONE 20 MG TABS 977475 PREDNISONE Inactive HYDROCODONE-ACETAMINOPHEN 5-325 MG ORAL TABS 1 tab two times a day HYDROCODONE-ACETAMINOPHEN 5-325 MG ORAL TABS 538346 HYDROCODONE-ACETAMINOPHEN Inactive CEFDINIR 300 MG CAPS by mouth twice a day CEFDINIR 300 MG CAPS 251257 CEFDINIR Inactive PREDNISONE 20 MG TAB 2 tabs daily for 3 days, 1 tab daily for 3 days, 1/2 tab daily for 2 days PREDNISONE 20 MG TAB 751574 PREDNISONE Inactive BACTRIM DS 800-160 MG TABS 1 po BID x 7 days BACTRIM DS 800-160 MG TABS 203080 SULFAMETHOXAZOLE-TRIMETHOPRIM Inactive DIFLUCAN 150 MG TABS 1 pill every other day x 2 doses DIFLUCAN 150 MG TABS 601440 FLUCONAZOLE Inactive BACTRIM DS 800-160 MG TABS 1 pill by mouth twice daily BACTRIM DS 800-160 MG TABS 167780 SULFAMETHOXAZOLE-TRIMETHOPRIM Inactive KEFLEX 500 MG CAP 1 po TID x 10 days KEFLEX 500 MG CAP 676704 CEPHALEXIN Inactive Advance Directives Directive Description Start [...] 369 10^3/MM^3 10*3/mm3 142-424 Lab Report: Chlamydia/GC APTIMA/68071 - Lab chlamydia DNA probe NOT DETECTED NOT DETECTED Lab Report: Chlamydia/GC APTIMA/80905 - Microbiology Neisseria gonorrhoeae DNA probe NOT DETECTED NOT DETECTED Lab Report: Chlamydia/GC APTIMA/54532, Urinalysis, Complete, with Reflex ... - Lab chlamydia DNA probe NOT DETECTED NOT DETECTED Lab Report: Chlamydia/GC APTIMA/15399, Urinalysis, Complete, with Reflex ... - Microbiology Neisseria gonorrhoeae DNA probe NOT DETECTED NOT DETECTED Lab Report: Chlamydia/GC APTIMA/31549, Urinalysis, Complete, with Reflex ... - Urinalysis microalbumin/total urine volume 2 mg/L Units converted. See lab report for original value. microalbumin/creatinine ratio, urine 9 MCG/MG CREAT mg/L <30 Lab Report: Comp. Metabolic Panel - Chemistry sodium, serum 142 mmol/L 844-009 5276/06/08 carbon dioxide, venous blood 27.6 mmol/L 21.0-32.0 potassium, serum 4.0 mmol/L 3.5-5.2 chloride, serum 105 mmol/L 98-107 blood glucose 95 mg/dL 65-110 urea nitrogen, blood 8 mg/dL 7-18 creatinine, serum 0.75 mg/dL 0.55-1.30 alanine aminotransferase (SGPT), serum 49 U/L -78 aspartate aminotransferase (SGOT), serum 28 U/L 15-37 calcium, serum 9.4 mg/dL 8.5-10.1 bilirubin, serum, total 0.30 mg/dL 0.00-1.00 sodium, serum 140 mmol/L 906-403 8522/08/08 carbon dioxide, venous blood 33.7 mmol/L 21.0-32.0 [...] mg/dL Encounters Code Encounter Date Provider Facility CPT-30035 Level 4 Est. Patient 10:20:54 [facility] Suzan Boo [facility] CPT-69690 Level 3 Est. Patient 11:47:37 COMPUTED TOMOGRAPHY TECHNOLOGIST Ahmet Carbajal MD [facility] CPT-48048 Level 3 Est. Patient 10:40:11 COMPUTED TOMOGRAPHY TECHNOLOGIST Ahmet Carbajal MD [facility] CPT-12928 Level 3 Est. Patient 15:07:06 COMPUTED TOMOGRAPHY TECHNOLOGIST Neeraj Collins MD [facility] CPT-20928 Level 4 Est. Patient 14:45:00 COMPUTED TOMOGRAPHY TECHNOLOGIST Ahmet Carbajal MD [facility] CPT-32510 Level 3 Est. Patient 13:59:59 CDT 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 [facility] CPT-46452 Level 3 Est. Patient 18:18:53 CDT Neeraj Collins MD [facility] CPT-23195 Level 3 Est. Patient 15:50:44 CDT Vishal Hui MD [facility] CPT-53934 Level 3 Est. Patient 11:36:17 CDT Ahmet Carbajal MD [facility] CPT-63198 Level 3 Est. Patient 13:29:16 CDT Vishal Hui MD [facility] CPT-83230 Level 3 Est. Patient 14:27:52 CDT Neeraj Collins MD [facility] CPT-71845 Level 3 Est. Patient 08:56:03 CDT 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 [facility] CPT-61787 Level 4 Est. Patient 12:11:48 CDT Fabiola Johnson [facility] CPT-27544 Level 3 New Patient 16:53:37 CDT Albert Caldera MD [facility] CPT-44140 Level 3 Est. Patient 11:25:49 CDT Renzo Thornton DO [facility] CPT-06862 Level 3 Est. Patient 15:22:01 CDT Ahmet Carbajal MD [facility] CPT-44967 Level 4 Est. Patient 09:00:51 COMPUTED TOMOGRAPHY TECHNOLOGIST Vishal Hui MD [facility] CPT-23632 Level 3 Est. Patient 11:37:33 COMPUTED TOMOGRAPHY TECHNOLOGIST Vishal Hui MD [facility] CPT-21134 Level 3 Est. Patient 08:41:09 COMPUTED TOMOGRAPHY TECHNOLOGIST Vishal Hui MD [facility] CPT-88075 Level 4 Est. Patient 10:19:35 COMPUTED TOMOGRAPHY TECHNOLOGIST Vishal Hui MD [facility] CPT-79568 Level 3 Est. Patient 13:35:45 CDT Vishal Hui MD [facility] CPT-02472 Level 4 Est. Patient 10:08:37 CDT Vishal Hui MD [facility] CPT-41421 Level 3 Est. Patient 11:22:10 CDT Vishal Hui MD [facility] CPT-59802 Level 3 Est. Patient 11:03:32 CDT Sahara Rodriguez MD [facility] CPT-46200 Level 3 Est. Patient 09:41:35 CDT Vishal Hui MD [facility] CPT-54089 Level 3 Est. Patient 12:00:41 CDT Neeraj Collins MD [facility] CPT-01450 Level 3 Est. Patient 09:16:24 CDT Vishal Hui MD [facility] CPT-22396 Level 4 Est. Patient 13:59:09 CDT Neeraj Collins MD [facility] CPT-86404 Level 3 Est. Patient 15:19:43 CDT Renzo Thornton DO [facility] CPT-23244 Level 3 Est. Patient 18:10:26 CDT Sahara Rodriguez MD [facility]-86264 Level 3 Est. Patient 14:49:50 CDT Vishal Hui MD [facility] CPT-03302 Level 4 Est. Patient 18:41:46 CDT Neeraj Collins MD [facility] CPT-81220 Level 4 Est. Patient 09:18:38 COMPUTED TOMOGRAPHY TECHNOLOGIST Vishal Hui MD [facility] CPT-57998 Level 3 Est. Patient 14:43:55 COMPUTED TOMOGRAPHY TECHNOLOGIST Vishal Hui MD [facility] CPT-37566 Level 3 Est. Patient 15:26:33 COMPUTED TOMOGRAPHY TECHNOLOGIST Sahara Rodriguez MD [facility] CPT-34711 Level 3 Est. Patient 10:32:14 COMPUTED TOMOGRAPHY TECHNOLOGIST Vishal Hui MD [facility] CPT-28060 Level 3 Est. Patient 15:12:52 COMPUTED TOMOGRAPHY TECHNOLOGIST Vishal Hui MD [facility] CPT-00798 Level 4 Est. Patient 09:19:27 CDT Vishal Hui MD [facility] CPT-97656 Level 3 Est. Patient 15:53:00 CDT Renzo Barajas [facility] CPT-29548 Level 3 Est. Patient 15:50:30 CDT Renzo Thornton [facility] CPT-76586 Level 3 Est. Patient 16:55:24 CDT Vishal Hui MD [facility] Procedures Code Procedure Name Date Entry Date Standard Description CPT-G0439 [facility] Annual Wellness Exam 09:30:58 COMPUTED TOMOGRAPHY TECHNOLOGIST CPT-00654 TSH - LAB USE ONLY 08:50:26 COMPUTED TOMOGRAPHY TECHNOLOGIST CPT-61958 CBC - LAB USE ONLY 08:50:26 COMPUTED TOMOGRAPHY TECHNOLOGIST CPT-18799 Venipuncture Draw Fee 08:50:26 COMPUTED TOMOGRAPHY TECHNOLOGIST CPT-67349 Abx/Therapy Injection 17:34:30 COMPUTED TOMOGRAPHY TECHNOLOGIST CPT-65027 Nexplanon Removal with Reinsertion 14:09:32 CDT CPT-J7307 Nexplanon (Implant) 14:09:32 CDT CPT-OV Office Visit 14:09:32 CDT CPT-04076 UA w micro - LAB USE ONLY 16:21:13 CDT CPT-73641 Wet Mount - LAB USE ONLY 16:21:13 CDT CPT-13734 First Vx - Ix admin for Medicare patients 14:37:47 CDT CPT-04213 Fluzone Preservative Free Intramuscular Suspension 14:37 :47 CDT CPT-08726 Abx/Therapy Injection 13:54:22 CDT CPT-52091 Abx/Therapy Injection 08:47:09 CDT CPT-27156 Abx/Therapy Injection 13:29:56 CDT CPT-97721 Abx/Therapy Injection 08:36:16 CDT CPT-99920 Wet Mount - LAB USE ONLY 17:44:58 CDT CPT-10409 UA w micro - LAB USE ONLY 17:44:58 CDT CPT-47553 CMP - LAB USE ONLY 17:44:58 CDT CPT-77813 Venipuncture Draw Fee 17:44:58 CDT CPT-32327 Cervical Min 4V - XRAY USE ONLY 09:01:40 CDT CPT-09939 Chest 2V Frontal and Lat - XRAY USE ONLY 11:06:31 CDT CPT-86018 EKG Trac and Interp - XRAY USE ONLY 11:31:43 CDT 08/26 CPT-J3420 Vitamin B12 1000mcg (Cyanocobalamin) 08:10:26 COMPUTED TOMOGRAPHY TECHNOLOGIST 04/12 CPT-26151 Abx/Therapy Injection 08:10:26 COMPUTED TOMOGRAPHY TECHNOLOGIST CPT-G0438 Initial Annual Wellness Exam 19:01:01 COMPUTED TOMOGRAPHY TECHNOLOGIST CPT-J3420 Vitamin B12 1000mcg (Cyanocobalamin) 16:57:46 CDT 08/14 CPT-14963 Recombivax HB Injection Suspension 5 MCG/0.5ML 08:37:50 COMPUTED TOMOGRAPHY TECHNOLOGIST CPT-36384 Immunization Single Admin 08:37:50 COMPUTED TOMOGRAPHY TECHNOLOGIST CPT-J3420 Vitamin B12 1000mcg (Cyanocobalamin) 08:32:16 COMPUTED TOMOGRAPHY TECHNOLOGIST 03/11 CPT-78281 Abx/Therapy Injection 08:32:16 COMPUTED TOMOGRAPHY TECHNOLOGIST CPT-48201 Chest 2V Frontal and Lat 11:46:38 COMPUTED TOMOGRAPHY TECHNOLOGIST CPT-30895 Venipuncture Draw Fee 09:12:45 COMPUTED TOMOGRAPHY TECHNOLOGIST CPT-J3420 Vitamin B12 1000mcg (Cyanocobalamin) 08:50:15 COMPUTED TOMOGRAPHY TECHNOLOGIST 02/08 CPT-88523 Abx/Therapy Injection 08:50:15 COMPUTED TOMOGRAPHY TECHNOLOGIST CPT-Cryo Cryotherapy 10:19:35 COMPUTED TOMOGRAPHY TECHNOLOGIST CPT-000 Give Appropriate Flu Vaccine 09:22:16 CDT CPT-J3420 Vitamin B12 1000mcg (Cyanocobalamin) 19:08:57 CDT 01/11 CPT-95161 Abx/Therapy Injection 19:08:57 CDT CPT-J3420 Vitamin B12 1000mcg (Cyanocobalamin) 08:19:08 CDT 12/11 CPT-69927 Abx/Therapy Injection 08:19:08 CDT CPT-J3420 Vitamin B12 1000mcg (Cyanocobalamin) 14:48:00 CDT 11/09 CPT-43483 Abx/Therapy Injection 14:47:59 CDT CPT-J3420 Vitamin B12 1000mcg (Cyanocobalamin) 08:34:04 CDT 10/09 CPT-09480 Abx/Therapy Injection 08:34:04 CDT CPT-J3420 Vitamin B12 1000mcg (Cyanocobalamin) 09:18:52 CDT 09/11 CPT-98631 Abx/Therapy Injection 09:18:52 CDT CPT-J3420 Vitamin B12 1000mcg (Cyanocobalamin) 08:35:44 CDT 09/04 CPT-67358 Abx/Therapy Injection 08:35:44 CDT CPT-61430 Immunization Single Admin 11:07:16 CDT CPT-76102 Hepatitis B adult IM 11:07:16 CDT CPT-J3420 Vitamin B12 1000mcg (Cyanocobalamin) 11:00:49 CDT 08/28 CPT-J1040 Depo Medrol 80 mg (Methyl Prednisolone Acetate) 11:00: 49 CDT CPT-05528 Abx/Therapy Injection 11:00:49 CDT CPT-J1040 Depo Medrol 80 mg (Methyl Prednisolone Acetate) 09:16: 23 CDT CPT-J3420 Vitamin B12 1000mcg (Cyanocobalamin) 08:27:05 CDT 08/20 CPT-08748 Abx/Therapy Injection 08:27:05 CDT CPT-51540 Recombivax HB Injection Suspension 5 MCG/0.5ML 10:00:41 CDT CPT-17727 Administration single or combination vaccine inc oral 10 :00:41 CDT CPT-63040 Sono transvag pelvis non OB uterus ovaries cervix 16:36: 57 CDT CPT-80081 LS spine comp w obliq 09:50:55 COMPUTED TOMOGRAPHY TECHNOLOGIST CPT-72999 Abd compl w upright 09:50:55 COMPUTED TOMOGRAPHY TECHNOLOGIST CPT-J1100 Decadron 4mg (Dexamethasone) 15:51:24 COMPUTED TOMOGRAPHY TECHNOLOGIST CPT-J1030 Depo Medrol 40 mg (Methyl Prednisolone Acetate) 15:51: 24 COMPUTED TOMOGRAPHY TECHNOLOGIST CPT-24079 Abx/Therapy Injection 15:51:24 COMPUTED TOMOGRAPHY TECHNOLOGIST CPT-J1100 Decadron 4mg (Dexamethasone) 15:26:33 COMPUTED TOMOGRAPHY TECHNOLOGIST CPT-J1030 Depo Medrol 40 mg (Methyl Prednisolone Acetate) 15:26: 33 COMPUTED TOMOGRAPHY TECHNOLOGIST CPT-19366 Sono retroperitoneal complete kidneys and bladder 17:15: 30 CDT CPT-50583 Abd compl w upright 16:09:25 CDT CPT-J1100 Decadron 8mg (Dexamethasone) 17:07:57 CDT CPT-53023 Abx/Therapy Injection 17:07:57 CDT CPT-J1100 Decadron 8mg (Dexamethasone) 16:55:24 CDT CPT-21770 Chest 2V Frontal and Lat 16:32:44 CDT
--- OUTSIDE RECORDS SUMMARY | 2016-11-04 11:58 | XMS REPORT | Clinical Summary ---
Author Author Admin, FLOR Organization [employer] Address Unknown Phone Unavailable Allergies, Adverse Reactions, [...] sites Morbid obesity 278.01 Active Juliet Kimbrough SCIENTIFIC ARTIST Morbid obesity 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 Active Juliet Kimbrough SCIENTIFIC ARTIST Dependence on other enabling machines and devices [...] breath Nocturnal hypoxia 799.02 Active Fabiola Johnson SCIENTIFIC ARTIST Hypoxemia Neck pain 723.1 Resolved Vishal Hui [...] Closed fracture of upper end of fibula Anxiety Disorder ICD-300.00 Inactive Vishal Hui MD Pneumonia, organism unspecified ICD-486 Inactive Vishal Hui MD Flank pain, right ICD-789.09 Inactive Vishal Hui MD G E R D ICD-530.81 Inactive Vishal Hui MD Smoker/tobacco use disorder-smoking cessation discussed ICD-305.1 Inactive Vishal Hiu MD Abdominal pain ICD-789.00 Inactive Vishal Hui [...] Patient Instruction IMITREX 50 MG ORAL TABS 0.5 po x 1 PRN Headache. May repeat dose x 1 in 2 hours if needed SUMATRIPTAN SUCCINATE 40752411072 Active Vishal Hui MD Active OXYCODONE HCL ER 10 MG ORAL T12A 1/2 tab by mouth every 4 hours prn OXYCODONE HCL 47010063020 Active Neeraj Collins MD Active TESSALON PERLES 100 MG CAP 1 to 2 tablets by mouth 3 times daily as needed for cough BENZONATATE 41640910092 Active Vishal Hui MD Active METHYLPREDNISOLONE 4 MG ORAL TABS po daily METHYLPREDNISOLONE 60607463633 Active Vishal Hui MD Active LEVOFLOXACIN 500 MG ORAL TABS po daily LEVOFLOXACIN 72478576742 Active Vishal Hui MD Active CHANTIX STARTING MONTH EARNEST 0.5 MG X 11 & 1 MG X 42 TABS take as directed 2015 VARENICLINE TARTRATE 49682755043 Active Ahmet Carbajal MD Active CHANTIX 1 MG TABS 1 twice a day to help quit smoking VARENICLINE TARTRATE 94545820511 Active Ahmet Carbajal MD Active HYDROCODONE-ACETAMINOPHEN 5-325 MG TABS 1 to 2 four times a day as needed for pain use until can be seen by specialist HYDROCODONE- ACETAMINOPHEN 63754660380 No Longer Active Vishal Hui MD Active PROAIR HFA 108 (90 BASE) MCG/ACT AERS 2 puffs four times a day as needed 2015 ALBUTEROL SULFATE 91516377987 No Longer Active Vishal Hui MD Active PREDNISONE 20 MG TABS 2 daily for 5 days then 1 daily for 5 days PREDNISONE 84040507659 No Longer Active Vishal Hui MD Active ZITHROMAX Z-EARNEST 250 MG TABS 2 today and then 1 daily for 4 days AZITHROMYCIN 41469916404 No Longer Active Vishal Hui MD Active DICLOFENAC SODIUM 50 MG TBEC 1 tablet by mouth four times daily PRN Pain 2015 DICLOFENAC SODIUM 64112178037 Active Vishal Hui MD Active DICLOFENAC POTASSIUM TABS Take 1 tablet twice a day (pt. is not sure of the dose.) DICLOFENAC POTASSIUM TABS 62293325234 No Longer Active Vishal Hui MD Active VERAPAMIL HCL ER 120 MG ORAL CR-TABS Take 1 tablet by mouth twice a day. VERAPAMIL HCL 82478123703 Active Vishal Hui MD Active FLAGYL 500 MG TAB 1 tablet by mouth bid METRONIDAZOLE 62337691130 No Longer Active Vishal Hui MD Active ABILIFY MAINTENA 400 MG IM SUSR 400mg injection every 28 days ARIPIPRAZOLE 49364145859 Active Silvia Wilian Carmela CUSTOMER ENERGY SPECIALIST Active FLUTICASONE PROPIONATE 50 MCG/ACT SUSP 2 sprays each nostril daily before bed. FLUTICASONE PROPIONATE 25518823931 Active Fabiola Johnson APRN Active ADZENYS XR-ODT 6.3 MG ORAL TBED 1 tab po daily for ADHD AMPHETAMINE 69953616832 Active Fabiola Johnson APRN Active BENADRYL 25 MG CAP 4 po at bedtime for insomnia DIPHENHYDRAMINE HCL 74799721209 Active Fabiola Johnson APRN Active KLONOPIN 1 MG ORAL TABS 1 tab po TID CLONAZEPAM 55154675510 Active Fabiola Johnson APRN Active VALIUM 5 MG TAB Take 1-2 tablets daily DIAZEPAM 89416571467 No Longer Active Fabiola Johnson APRN Active METOPROLOL TARTRATE 25 MG ORAL TABS 1/2 tablet twice daily for heart rate and blood pressure METOPROLOL TARTRATE 09695097350 No Longer Active Fabiola Johnson APRN Active MIRALAX ORAL POWD 17GMS DAILY IN WATER POLYETHYLENE GLYCOL 3350 33570516134 Active Vishal Hui MD Active VIIBRYD 10 MG ORAL TABS Take 1 tablet once a day VILAZODONE HCL 72445762247 Active Ahmet Carbajal MD Active MIRALAX PACK 1 po qd PRN Constipation POLYETHYLENE GLYCOL 3350 77136964080 No Longer Active Ahmet Carbajal MD Active MINIPRESS 2 MG CAPS 4 cap po at night PRAZOSIN HCL 12057110675 No Longer Active Ahmet Carbajal MD Active PIROXICAM 20 MG CAPS 1 cap po qd PRN Pain PIROXICAM 89467016284 No Longer Active Ahmet Carbajal MD Active TRAMADOL HCL 50 MG TABS 1-2 po TID PRN Pain TRAMADOL HCL 31955151691 No Longer Active Ahmet Carbajal MD Active METOPROLOL TARTRATE 50 MG TAB 1 po bid METOPROLOL TARTRATE 66935557215 No Longer Active Ahmet Carbajal MD Active ABILIFY 15 MG ORAL TABS 1 tab daily ARIPIPRAZOLE 73067424597 No Longer Active Ahmet Carbajal MD Active PROZAC 20 MG ORAL CAPS 1 tab daily FLUOXETINE HCL 38535024055 No Longer Active Ahmet Carbajal MD Active AMBIEN 5 MG ORAL TABS 1 tab at bedtime ZOLPIDEM TARTRATE 40534949767 No Longer Active Ahmet Carbajal MD Active PREDNISONE 20 MG TAB 2 tabs daily for 4 days, 1 tab daily for 4 days, 1/2 tab daily for 4 days PREDNISONE 76631429639 No Longer Active Ahmet Carbajal MD Active KEFLEX 500 MG CAP 1 po TID x 10 days CEPHALEXIN 04122346249 No Longer Active Vishal Hui MD Active TOPAMAX 50 MG ORAL TABS 1 tab twice daily TOPIRAMATE 66616209114 Active Vishal Hui MD Active SAPHRIS 5 MG SUBL 1 po bid ASENAPINE MALEATE 39671816271 No Longer Active 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 APRN Active LATUDA 80 MG TABS Take one by mouth daily LURASIDONE HCL 12945666311 No Longer Active Jillina Mauricio NORIEGA Active AMLODIPINE BESYLATE 5 MG TABS 1 tablet by mouth daily AMLODIPINE BESYLATE 63954531662 No Longer Active 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 APRN Active AMITRIPTYLINE HCL 100 MG TAB one at hs AMITRIPTYLINE HCL 43682988831 No Longer Active Vishal Hui MD Active TRAZODONE HCL 100 MG TAB take 1 at bedtime TRAZODONE HCL 58289396741 No Longer Active Vishal Hui MD Active VYVANSE 40 MG CAPS 1 daily, LISDEXAMFETAMINE DIMESYLATE 59079861284 No Longer Active Vishal Hui MD Active IBUPROFEN 600 MG TAB 1 po TID PRN IBUPROFEN 94481957310 No Longer Active Vishal Hui MD Active PROZAC 20 MG CAP Take one by mouth daily FLUOXETINE HCL 84276405730 No Longer Active Vishal Hui MD Active ZOFRAN 4 MG TABS 1 po q6hr PRN Nausea ONDANSETRON HCL Active Vishal Hui MD Active BACTRIM DS 800-160 MG TABS 1 pill by mouth twice daily SULFAMETHOXAZOLE-TRIMETHOPRIM 50546071512 No Longer Active Sahara Rodriguez MD PhD Active DIFLUCAN 150 MG TAB 1 tablet by mouth daily FLUCONAZOLE 03571818802 No Longer Active Vishal Hui MD Active TIZANIDINE HCL 4 MG TABS 1 po q6hr PRN Muscle Spasm/Back Pain TIZANIDINE HCL 20861062506 Active Vishal Hui MD Active CLINDAMYCIN HCL 150 MG CAPS 1 four times a day CLINDAMYCIN HCL 20825106229 No Longer Active Neeraj Collins MD Active KEFLEX 500 MG ORAL CAPS 1 cap QID by mouth CEPHALEXIN 35702944132 No Longer Active Neeraj Collins MD Active DIFLUCAN 150 MG TABS 1 pill every other day x 2 doses FLUCONAZOLE 85254688985 No Longer Active Sahara Rodriguez MD PhD Active MELATONIN 3 MG CAPS 2 po q hs MELATONIN 87333380761 No Longer Active Sahara Rodriguez MD PhD Active MULTIVITAMINS CAPS Take one by mouth daily MULTIPLE VITAMIN 32836686701 No Longer Active Sahara Rodriguez MD PhD Active BACTRIM DS 800-160 MG TAB 1 tab by mouth twice daily TRIMETHOPRIM-SULFAMETHOXAZOLE 39634075088 No Longer Active Sahara Rodriguez MD PhD Active [facility] PROBIOTIC ORAL CHEW 2 daily po PROBIOTIC PRODUCT 62874014515 No Longer Active Sahara Rodriguez MD PhD Active BACTRIM DS 800-160 MG TABS 1 po BID x 7 days SULFAMETHOXAZOLE-TRIMETHOPRIM 47498320286 No Longer Active Vishal Hui MD Active CHANTIX STARTING MONTH EARNEST 0.5 MG X 11 & 1 MG X 42 TABS 0.5mg daily for 3 days , then 0.5mg BID for 4 days, then 1mg BID VARENICLINE TARTRATE 18568741876 No Longer Active TAMARA Gray Active VERAPAMIL HCL CR 120 MG TAB CR 1 po bid VERAPAMIL HCL 90596046733 No Longer Active Vishal Hui MD Active METOPROLOL SUCCINATE 50 MG TB24 1 tablet by mouth daily METOPROLOL SUCCINATE 72284842454 No Longer Active Vishal Hui MD Active SAPHRIS 10 MG SUBL 1 tab po bid ASENAPINE MALEATE 04924056751 No Longer Active Vishal Hui MD Active LISINOPRIL 20 MG TABS 1 tab po qd LISINOPRIL 60081510099 No Longer Active Vishal Hui MD Active LATUDA 20 MG TABS Take one by mouth daily LURASIDONE HCL 78274485366 No Longer Active Vishal Hui MD Active TRAZODONE HCL 50 MG TABS 1/2 tab po qd prn for anxiety TRAZODONE HCL 68811853873 No Longer Active Vihsal Hui MD Active OMEPRAZOLE 20 MG TBEC 1 po q a.m. 30min prior to first food intake OMEPRAZOLE 86865012537 Active Vishal Hui MD Active RANITIDINE HCL 150 MG CAPS 1 twice a day RANITIDINE HCL 33899296334 Active 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 SCIENTIFIC ARTIST Active LINZESS 290 MCG CAPS Take one by mouth daily LINACLOTIDE 61908578042 No Longer Active Vishal Hui MD Active SAPHRIS 5 MG SUBL 1 tab po qd ASENAPINE MALEATE 01641128694 No Longer Active Vishal Hui MD Active ZALEPLON 10 MG CAPS 1 cap po every other night ZALEPLON 72933561240 No Longer Active Vishal Hui MD Active LYRICA 50 MG CAPS 1 tab po TID PREGABALIN 17738679110 No Longer Active Vishal Hui MD Active LORATADINE 10 MG TABS 1 tab po qd LORATADINE 16183917500 No Longer Active Vishal Hui MD Active VERAPAMIL HCL ER 180 MG CR-TABS 1 tab po bid VERAPAMIL HCL 71618223048 No Longer Active Vishal Hui MD Active MIRALAX POWD 1 capfull once daily POLYETHYLENE GLYCOL 3350 33093336261 No Longer Active Vishal Hui MD Active PREDNISONE 20 MG TABS 1 tab po qd PREDNISONE 19955592577 No Longer Active Renzo Thornton DO Active LEVOFLOXACIN 500 MG TABS 1 tab po qd LEVOFLOXACIN 11173730083 No Longer Active Renzo Thornton DO Active BUSPIRONE HCL 15 MG TABS 1 tab po TID BUSPIRONE HCL 21203888057 No Longer Active Renzo Thornton DO Active BENZTROPINE MESYLATE 1 MG TABS 1 tab po qd BENZTROPINE MESYLATE 96261070765 No Longer Active Renzo Thornton DO Active ATENOLOL 25 MG TABS 1 tab po qd ATENOLOL 94449849815 No Longer Active Renzo Thornton DO Active ESCITALOPRAM OXALATE 20 MG TABS 1 tab po qd ESCITALOPRAM OXALATE 11762152608 No Longer Active Renzo Thornton DO Active ADVAIR DISKUS 250-50 MCG/DOSE AEPB 1 puff BID FLUTICASONE-SALMETEROL 39627549949 No Longer Active Renzo Thornton DO Active PREDNISONE 20 MG TAB 2 tabs daily for 3 days, 1 tab daily for 3 days, 1/2 tab daily for 2 days PREDNISONE 55915245826 No Longer Active Vishal Hui MD Active CEFDINIR 300 MG CAPS by mouth twice a day CEFDINIR 29676518195 No Longer Active Vishal Hui MD Active LANSOPRAZOLE 30 MG CPDR 1 cap po qd LANSOPRAZOLE 23406987476 No Longer Active Vishal Hui MD Active BACLOFEN 20 MG TABS 1 tab po tid BACLOFEN 83244625807 No Longer Active Vishal Hui MD Active ADVAIR DISKUS 250-50 MCG/DOSE AEPB 1 puff BID ADVAIR DISKUS 250-50 MCG/DOSE AEPB FLUTICASONE-SALMETEROL Inactive ESCITALOPRAM OXALATE 20 MG TABS 1 tab po qd ESCITALOPRAM OXALATE 20 MG TABS 217172 ESCITALOPRAM OXALATE Inactive ATENOLOL 25 MG TABS 1 tab po qd ATENOLOL 25 MG TABS 021517 ATENOLOL Inactive BENZTROPINE MESYLATE 1 MG TABS 1 tab po qd BENZTROPINE MESYLATE 1 MG TABS 019153 BENZTROPINE MESYLATE Inactive BUSPIRONE HCL 15 MG TABS 1 tab po TID BUSPIRONE HCL 15 MG TABS 244771 BUSPIRONE HCL Inactive LEVOFLOXACIN 500 MG TABS 1 tab po qd LEVOFLOXACIN 500 MG TABS 380199 LEVOFLOXACIN Inactive PREDNISONE 20 MG TABS 1 tab po qd PREDNISONE 20 MG TABS 319988 PREDNISONE Inactive MIRALAX POWD 1 capfull once daily MIRALAX POWD 167534 POLYETHYLENE GLYCOL 3350 Inactive VERAPAMIL HCL ER 180 MG CR-TABS 1 tab po bid VERAPAMIL HCL ER 180 MG CR-TABS VERAPAMIL HCL Inactive LORATADINE 10 MG TABS 1 tab po qd LORATADINE 10 MG TABS 292610 LORATADINE Inactive LYRICA 50 MG CAPS 1 tab po TID LYRICA 50 MG CAPS PREGABALIN Inactive ZALEPLON 10 MG CAPS 1 cap po every other night ZALEPLON 10 MG CAPS 595266 ZALEPLON Inactive SAPHRIS 5 MG SUBL 1 tab po qd SAPHRIS 5 MG SUBL ASENAPINE MALEATE Inactive TRAZODONE HCL 50 MG TABS 1/2 tab po qd prn for anxiety TRAZODONE HCL 50 MG TABS 541272 TRAZODONE HCL Inactive LATUDA 20 MG TABS Take one by mouth daily LATUDA 20 MG TABS LURASIDONE HCL Inactive LISINOPRIL 20 MG TABS 1 tab po qd LISINOPRIL 20 MG TABS 490936 LISINOPRIL Inactive SAPHRIS 10 MG SUBL 1 [...] twice daily BACTRIM DS 800-160 MG TAB 370518 TRIMETHOPRIM-SULFAMETHOXAZOLE Inactive MULTIVITAMINS CAPS Take one by mouth daily MULTIVITAMINS CAPS MULTIPLE VITAMIN Inactive MELATONIN 3 MG CAPS 2 po q hs MELATONIN 3 MG CAPS 166190 MELATONIN Inactive KEFLEX 500 MG ORAL CAPS 1 cap QID by mouth KEFLEX 500 MG ORAL CAPS 551255 CEPHALEXIN Inactive CLINDAMYCIN HCL 150 MG CAPS 1 four times a day CLINDAMYCIN HCL 150 MG CAPS 19740326 CLINDAMYCIN HCL Inactive DIFLUCAN 150 MG TAB 1 tablet by mouth daily DIFLUCAN 150 MG TAB 160883 FLUCONAZOLE Inactive PROZAC 20 MG CAP Take one by mouth daily PROZAC 20 MG CAP 121543 FLUOXETINE HCL Inactive IBUPROFEN 600 MG TAB 1 po TID PRN IBUPROFEN 600 MG TAB 657775 IBUPROFEN Inactive VYVANSE 40 MG CAPS 1 daily, VYVANSE 40 MG CAPS LISDEXAMFETAMINE DIMESYLATE Inactive TRAZODONE HCL 100 MG TAB take 1 at bedtime TRAZODONE HCL 100 MG TAB 721103 TRAZODONE HCL Inactive AMITRIPTYLINE HCL 100 MG TAB one at hs AMITRIPTYLINE HCL 100 MG TAB 876099 AMITRIPTYLINE HCL Inactive AMLODIPINE BESYLATE 5 MG TABS 1 tablet by mouth daily AMLODIPINE BESYLATE 5 MG TABS 249059 AMLODIPINE BESYLATE Inactive LATUDA 80 MG TABS Take one by mouth daily LATUDA 80 MG TABS LURASIDONE HCL Inactive SAPHRIS 5 MG SUBL 1 po bid SAPHRIS 5 MG SUBL ASENAPINE MALEATE Inactive PREDNISONE 20 MG TAB 2 tabs daily for 4 days, 1 tab daily for 4 days, 1/2 tab daily for 4 days PREDNISONE 20 MG TAB 097601 PREDNISONE Inactive AMBIEN 5 MG ORAL TABS 1 tab at bedtime AMBIEN 5 MG ORAL TABS 062677 ZOLPIDEM TARTRATE Inactive PROZAC 20 MG ORAL CAPS 1 tab daily PROZAC 20 MG ORAL CAPS 285693 FLUOXETINE HCL Inactive ABILIFY 15 MG ORAL TABS 1 tab daily ABILIFY 15 MG ORAL TABS 451098 ARIPIPRAZOLE Inactive METOPROLOL TARTRATE 50 MG TAB 1 po bid METOPROLOL TARTRATE 50 MG TAB 971504 METOPROLOL TARTRATE Inactive TRAMADOL HCL 50 MG TABS 1-2 po TID PRN Pain TRAMADOL HCL 50 MG TABS 291534 TRAMADOL HCL Inactive PIROXICAM 20 MG CAPS 1 cap po qd PRN Pain PIROXICAM 20 MG CAPS 864343 PIROXICAM Inactive MINIPRESS 2 MG CAPS 4 cap po at night MINIPRESS 2 MG CAPS 947652 PRAZOSIN HCL Inactive MIRALAX PACK 1 po qd PRN Constipation MIRALAX PACK 601109 POLYETHYLENE GLYCOL 3350 Inactive METOPROLOL TARTRATE 25 MG ORAL TABS 1/2 tablet twice daily for heart rate and blood pressure METOPROLOL TARTRATE 25 MG ORAL TABS 870054 METOPROLOL TARTRATE Inactive VALIUM 5 MG TAB Take 1-2 tablets daily VALIUM 5 MG TAB 603712 DIAZEPAM Inactive FLAGYL 500 MG TAB 1 tablet by mouth bid FLAGYL 500 MG TAB 947616 METRONIDAZOLE Inactive DICLOFENAC POTASSIUM TABS Take 1 tablet twice a day (pt. is not sure of the dose.) DICLOFENAC POTASSIUM TABS DICLOFENAC POTASSIUM TABS Inactive ZITHROMAX Z-EARNEST 250 MG TABS 2 today and then 1 daily for 4 days ZITHROMAX Z-EARNEST 250 MG TABS 8828429 AZITHROMYCIN Inactive PREDNISONE 20 MG TABS 2 daily for 5 days then 1 daily for 5 days PREDNISONE 20 MG TABS 013147 PREDNISONE Inactive PROAIR HFA 108 (90 BASE) MCG/ACT AERS 2 puffs four times a day as needed 2015 PROAIR HFA 108 (90 BASE) MCG/ACT AERS ALBUTEROL SULFATE Inactive HYDROCODONE-ACETAMINOPHEN 5-325 MG TABS 1 to 2 four times a day as needed for pain use until can be seen by specialist HYDROCODONE- ACETAMINOPHEN 5-325 MG TABS 064885 HYDROCODONE-ACETAMINOPHEN Inactive CEFDINIR 300 MG CAPS by mouth twice a day CEFDINIR 300 MG CAPS 770629 CEFDINIR Inactive PREDNISONE 20 MG TAB 2 tabs daily for 3 days, 1 tab daily for 3 days, 1/2 tab daily for 2 days PREDNISONE 20 MG TAB 432928 PREDNISONE Inactive BACTRIM DS 800-160 MG TABS 1 po BID x 7 days BACTRIM DS 800-160 MG TABS 365832 SULFAMETHOXAZOLE-TRIMETHOPRIM Inactive DIFLUCAN 150 MG TABS 1 pill every other day x 2 doses DIFLUCAN 150 MG TABS 014002 FLUCONAZOLE Inactive BACTRIM DS 800-160 MG TABS 1 pill by mouth twice daily BACTRIM DS 800-160 MG TABS 810635 SULFAMETHOXAZOLE-TRIMETHOPRIM Inactive KEFLEX 500 MG CAP 1 po TID x 10 days KEFLEX 500 MG CAP 381350 CEPHALEXIN Inactive Advance Directives Directive Description Start [...] % 11.6-14.8 platelet count 394 10^3/MM^3 10*3/mm3 907-776 9851/01/11 leukocyte count, blood 13.8 10^3/MM^3 10*3/mm3 4.6-10.2 [...] Panel - Chemistry sodium, serum 139 mmol/L 051-295 3742/12/03 carbon dioxide, venous blood 28.5 mmol/L 21.0-32.0 [...] 5.5 % 4.3-6.0 cholesterol, serum 159 mg/dL 560-527 4307/12/03 triglyceride, serum, fasting 118 mg/dL 30-200 HDL [...] Panel - Chemistry sodium, serum 139 mmol/L 212-686 5402/12/22 carbon dioxide, venous blood 26.8 mmol/L 21.0-32.0 potassium, serum 4.2 mmol/L 3.5-5.2 chloride, serum 103 mmol/L 98-107 blood glucose 115 mg/dL 65-110 urea nitrogen, blood 20 mg/dL 7-18 creatinine, serum 0.90 mg/dL 0.55-1.30 alanine aminotransferase (SGPT), serum 38 U/L aspartate aminotransferase (SGOT), serum 19 U/L 15-37 calcium, serum 8.6 mg/dL 8.5-10.1 bilirubin, serum, total 0.30 mg/dL 0.00-1.00 sodium, serum 139 mmol/L 595-330 3604/01/11 carbon dioxide, venous blood 26.6 mmol/L 21.0-32.0 potassium, serum 4.1 mmol/L 3.5-5.2 chloride, serum 100 mmol/L 98-107 blood glucose 86 mg/dL 65-110 urea nitrogen, blood 16 mg/dL 7-18 creatinine, serum 1.00 mg/dL 0.55-1.30 alanine aminotransferase (SGPT), serum 48 U/L aspartate aminotransferase (SGOT), serum 17 U/L 15-37 calcium, serum 9.1 mg/dL 8.5-10.1 bilirubin, serum, total 0.40 mg/dL 0.00-1.00 sodium, serum 142 mmol/L 577-085 6988/06/08 carbon dioxide, venous blood 27.6 mmol/L 21.0-32.0 potassium, serum 4.0 mmol/L 3.5-5.2 chloride, serum 105 mmol/L 98-107 blood glucose 95 mg/dL 65-110 urea nitrogen, blood 8 mg/dL 7-18 creatinine, serum 0.75 mg/dL 0.55-1.30 alanine aminotransferase (SGPT), serum 49 U/L 12-78 aspartate aminotransferase (SGOT), serum 28 U/L 15-37 calcium, serum 9.4 mg/dL 8.5-10.1 bilirubin, serum, total 0.30 mg/dL 0.00-1.00 sodium, serum 140 mmol/L 146-583 3011/08/08 carbon dioxide, venous blood 33.7 mmol/L 21.0-32.0 [...] Rate - Chemistry sodium, serum 139 mmol/L 014-265 4790/12/11 carbon dioxide, venous blood 25.4 mmol/L 21.0-32.0 [...] mg/dL Encounters Code Encounter Date Provider Facility CPT-70118 Level 3 Est. Patient 18:18:53 CDT Neeraj Collins MD [facility] CPT-61203 Level 3 Est. Patient 15:50:44 CDT Vishal Hui MD [facility] CPT-10244 Level 3 Est. Patient 11:36:17 CDT Ahmet Carbajal MD [facility] CPT-83617 Level 3 Est. Patient 13:29:16 CDT Vishal Hui MD [facility] CPT-35478 Level 3 Est. Patient 14:27:52 CDT Neeraj Collins MD [facility] CPT-53608 Level 3 Est. Patient 08:56:03 CDT 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 [facility] CPT-35578 Level 4 Est. Patient 12:11:48 CDT Fabiola Johnson [facility] CPT-23455 Level 3 New Patient 16:53:37 CDT Albert Caldera MD [facility] CPT-08841 Level 3 Est. Patient 11:25:49 CDT Renzo Thornton DO [facility] CPT-97714 Level 3 Est. Patient 15:22:01 CDT Ahmet Carbajal MD [facility] CPT-48475 Level 4 Est. Patient 09:00:51 CURR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 Vishal Hui MD [facility] CPT-56832 Level 3 Est. Patient 11:37:33 CURR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 Vishal Hui MD [facility] CPT-21349 Level 3 Est. Patient 08:41:09 CURR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 Vishal Hui MD [facility] CPT-50720 Level 4 Est. Patient 10:19:35 CURR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 Vishal Hui MD [facility] CPT-11764 Level 3 Est. Patient 13:35:45 CDT Vishal Hui MD [facility] CPT-37341 Level 4 Est. Patient 10:08:37 CDT Vishal Hui MD [facility] CPT-82443 Level 3 Est. Patient 11:22:10 CDT Vishal Hui MD [facility] CPT-67704 Level 3 Est. Patient 11:03:32 CDT Sahara Rodriguez MD [facility]-92242 Level 3 Est. Patient 09:41:35 CDT Vishal Hui MD [facility]-66917 Level 3 Est. Patient 12:00:41 CDT Neeraj Collins MD [facility]-75723 Level 3 Est. Patient 09:16:24 CDT Vishal Hui MD [facility]-21109 Level 4 Est. Patient 13:59:09 CDT Neeraj Collins MD [facility]-77106 Level 3 Est. Patient 15:19:43 CDT Renzo Thornton DO [facility] CPT-34976 Level 3 Est. Patient 18:10:26 CDT Sahara Rodriguez MD [facility] CPT-65388 Level 3 Est. Patient 14:49:50 CDT Vishal Hui MD [facility]-97052 Level 4 Est. Patient 18:41:46 CDT Neeraj Collins MD [facility]-85032 Level 4 Est. Patient 09:18:38 CURR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 Vishal Hui MD [facility]-35096 Level 3 Est. Patient 14:43:55 CURR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 Vishal Hui MD [facility] CPT-72048 Level 3 Est. Patient 15:26:33 CURR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 Sahara Rodriguez MD [facility]-68623 Level 3 Est. Patient 10:32:14 CURR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 Vishal Hui MD [facility]-22493 Level 3 Est. Patient 15:12:52 CURR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 Vishal Hui MD [facility]-12119 Level 4 Est. Patient 09:19:27 CDT Vishal Hui MD [facility] CPT-91940 Level 3 Est. Patient 15:53:00 CDT Renzo Thornton [facility] CPT-24969 Level 3 Est. Patient 15:50:30 CDT Renzo Thornton [facility] CPT-62532 Level 3 Est. Patient 16:55:24 CDT Vishal Hui MD [facility] Procedures Code Procedure Name Date Entry Date Standard Description CPT-98157 Abx/Therapy Injection 08:47:09 CDT CPT-55339 Abx/Therapy Injection 13:29:56 CDT CPT-88708 Abx/Therapy Injection 08:36:16 CDT CPT-52445 Wet Mount - LAB USE ONLY 17:44:58 CDT CPT-47277 UA w micro - LAB USE ONLY 17:44:58 CDT CPT-50128 CMP - LAB USE ONLY 17:44:58 CDT CPT-25735 Venipuncture Draw Fee 17:44:58 CDT CPT-61861 Cervical Min 4V - XRAY USE ONLY 09:01:40 CDT CPT-06584 Chest 2V Frontal and Lat - XRAY USE ONLY 11:06:31 CDT CPT-58937 EKG Trac and Interp - XRAY USE ONLY 11:31:43 CDT 08/26 CPT-J3420 Vitamin B12 1000mcg (Cyanocobalamin) 08:10:26 CURR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 04/12 CPT-93417 Abx/Therapy Injection 08:10:26 CURR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 CPT-G0438 Initial Annual Wellness Exam 19:01:01 CURR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 CPT-J3420 Vitamin B12 1000mcg (Cyanocobalamin) 16:57:46 CDT 08/14 CPT-75800 Recombivax HB Injection Suspension 5 MCG/0.5ML 08:37:50 CURR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 CPT-32121 Immunization Single Admin 08:37:50 CURR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 CPT-J3420 Vitamin B12 1000mcg (Cyanocobalamin) 08:32:16 CURR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 03/11 CPT-56683 Abx/Therapy Injection 08:32:16 CURR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 CPT-92860 Chest 2V Frontal and Lat 11:46:38 CURR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 CPT-90280 Venipuncture Draw Fee 09:12:45 CURR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 CPT-J3420 Vitamin B12 1000mcg (Cyanocobalamin) 08:50:15 CURR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 02/08 CPT-62655 Abx/Therapy Injection 08:50:15 CURR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 CPT-Cryo Cryotherapy 10:19:35 CURR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 CPT-000 Give Appropriate Flu Vaccine 09:22:16 CDT CPT-J3420 Vitamin B12 1000mcg (Cyanocobalamin) 19:08:57 CDT 01/11 CPT-28127 Abx/Therapy Injection 19:08:57 CDT CPT-J3420 Vitamin B12 1000mcg (Cyanocobalamin) 08:19:08 CDT 12/11 CPT-05366 Abx/Therapy Injection 08:19:08 CDT CPT-J3420 Vitamin B12 1000mcg (Cyanocobalamin) 14:48:00 CDT 11/09 CPT-03405 Abx/Therapy Injection 14:47:59 CDT CPT-J3420 Vitamin B12 1000mcg (Cyanocobalamin) 08:34:04 CDT 10/09 CPT-45966 Abx/Therapy Injection 08:34:04 CDT CPT-J3420 Vitamin B12 1000mcg (Cyanocobalamin) 09:18:52 CDT 09/11 CPT-05790 Abx/Therapy Injection 09:18:52 CDT CPT-J3420 Vitamin B12 1000mcg (Cyanocobalamin) 08:35:44 CDT 09/04 CPT-49980 Abx/Therapy Injection 08:35:44 CDT CPT-20780 Immunization Single Admin 11:07:16 CDT CPT-91018 Hepatitis B adult IM 11:07:16 CDT CPT-J3420 Vitamin B12 1000mcg (Cyanocobalamin) 11:00:49 CDT 08/28 CPT-J1040 Depo Medrol 80 mg (Methyl Prednisolone Acetate) 11:00: 49 CDT CPT-86321 Abx/Therapy Injection 11:00:49 CDT CPT-J1040 Depo Medrol 80 mg (Methyl Prednisolone Acetate) 09:16: 23 CDT CPT-J3420 Vitamin B12 1000mcg (Cyanocobalamin) 08:27:05 CDT 08/20 CPT-79920 Abx/Therapy Injection 08:27:05 CDT CPT-69340 Recombivax HB Injection Suspension 5 MCG/0.5ML 10:00:41 CDT CPT-69186 Administration single or combination vaccine inc oral 10 :00:41 CDT CPT-38463 Sono transvag pelvis non OB uterus ovaries cervix 16:36: 57 CDT CPT-06230 LS spine comp w obliq 09:50:55 [employer]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 CPT-53897 Abd compl w upright 09:50:55 [employer]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 CPT-J1100 Decadron 4mg (Dexamethasone) 15:51:24 [employer]R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 CPT-J1030 Depo Medrol 40 mg (Methyl Prednisolone Acetate) 15:51: 24 [employer]R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 CPT-68389 Abx/Therapy Injection 15:51:24 [employer]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
--- OUTSIDE RECORDS SUMMARY | 2016-11-04 12:01 | XMS REPORT | Clinical Summary ---
Author Author Admin, BRIELLEE Organization [employer] Address Unknown Phone Unavailable Allergies, Adverse Reactions, [...] sites Morbid obesity 278.01 Active Juliet Kimbrough [employer] Morbid obesity 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 Active Juliet [...] chest pain Localized adiposity 278.1 Resolved Vishal Hiu MD Localized adiposity Shortness of breath 786.05 Resolved Vishal Hui MD Shortness of breath Nocturnal hypoxia 799.02 Active Fabiola Johnson [employer] Hypoxemia Neck pain 723.1 Resolved Vishal Hui [...] fibula Vaginal discharge 623.5 Active 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 [employer] Leukorrhea, not specified as infective DYSURIA 788.1 [...] Active Neeraj Collins MD Bronchitis, acute 466.0 Active Ahmet Carbajal MD Acute bronchitis Anxiety Disorder ICD-300.00 Inactive Vishal Hui MD [...] Generic Name NDC Status Provider Patient Instruction GUAIFENESIN-CODEINE 100-10 MG/5ML SYRP 5ml every 4 to 6 hours as needed for cough GUAIFENESIN-CODEINE 36837337023 Active Ahmet Carbajal MD Active PREDNISONE 20 MG TABS 2 daily for 5 days then 1 daily for 5 days PREDNISONE 52311843043 Active Ahmet Carbajal MD Active LAMICTAL 100 MG ORAL TABS 1 tab q.d LAMOTRIGINE 30485288533 Active Ahmet Carbajal MD Active BENADRYL 25 MG CAP 4 po at bedtime for insomnia DIPHENHYDRAMINE HCL 55396133999 No Longer Active Ahmet Carbajal MD Active ADVAIR DISKUS 250-50 MCG/DOSE INH AEPB 1 puff twice a day for asthma FLUTICASONE-SALMETEROL 66820757390 No Longer Active Ahmet Carbajal MD Active KLONOPIN 1 MG ORAL TABS 1 tab po TID CLONAZEPAM 50393191531 No Longer Active Ahmet Carbajal MD Active ABILIFY MAINTENA 400 MG IM SUSR 400mg injection every 26 days ARIPIPRAZOLE 81902071110 No Longer Active Ahmet Carbajal MD Active HALOPERIDOL 10 MG ORAL TABS 1 tab q.d HALOPERIDOL 31609249103 Active Ahmet Carbajal MD Active ASPIRIN 325 MG ORAL TABS 1 tab q.d ASPIRIN 20414625148 Active Ahmet Carbajal MD Active HYDROCODONE-ACETAMINOPHEN 5-325 MG ORAL TABS 1 tab two times a day HYDROCODONE-ACETAMINOPHEN 97452615580 Active Ahmet Carbajal MD Active TRAMADOL HCL 50 MG TABS 1/2-1 tab TID PRN TRAMADOL HCL 58558947325 No Longer Active Ahmet Carbajal MD Active BACTRIM DS 800-160 MG TABS 1 twice a day SULFAMETHOXAZOLE- TRIMETHOPRIM 70979454114 No Longer Active Ahmet Carbajal MD Active PROAIR HFA 108 (90 BASE) MCG/ACT AERS 2 puffs four times a day as needed 2015 ALBUTEROL SULFATE 46423092714 Active Ahmet Carbajal MD Active EQ NICOTINE 21 MG/24HR TRANS PT24 Apply daily to stop smoking NICOTINE 96475048250 Active Ahmet Carbajal MD Active MONISTAT 7 COMBO PACK WOODROW 100 & 2 MG-% (9GM) VAG KIT 1 applicatorful per vagina q pm x 7 MICONAZOLE NITRATE 71926421516 No Longer Active Ahmet Carbajal MD Active FLAGYL 500 MG TAB 1 tablet by mouth bid METRONIDAZOLE 52983201853 No Longer Active Ahmet Carbajal MD Active OXYCODONE HCL ER 10 MG ORAL T12A 1/2 tab by mouth every 4 hours prn OXYCODONE HCL 42661894663 No Longer Active Ahmet Carbajal MD Active METHYLPREDNISOLONE 4 MG ORAL TABS po daily METHYLPREDNISOLONE 63932232319 No Longer Active Ahmet Carbajal MD Active LEVOFLOXACIN 500 MG ORAL TABS po daily LEVOFLOXACIN 72049667635 No Longer Active Ahmet Carbajal MD Active VIIBRYD 10 MG ORAL TABS Take 1 tablet once a day VILAZODONE HCL 96712078150 No Longer Active Ahmet Carbajal MD Active TOPAMAX 50 MG ORAL TABS 1 tab twice daily TOPIRAMATE 93563285247 No Longer Active Ahmet Carbajal MD Active DICLOFENAC SODIUM 50 MG TBEC 1 tablet by mouth four times daily PRN Pain 2015 DICLOFENAC SODIUM 58511843671 No Longer Active Ahmet Carbajal MD Active ADZENYS XR-ODT 6.3 MG ORAL TBED 1 tab po daily for ADHD AMPHETAMINE 91091186322 No Longer Active Ahmet Carbajal MD Active CHANTIX 1 MG TABS 1 twice a day to help quit smoking VARENICLINE TARTRATE 16394372598 No Longer Active Dipika Burgos MD Active CHANTIX STARTING MONTH EARNEST 0.5 MG X 11 & 1 MG X 42 TABS take as directed 2015 VARENICLINE TARTRATE 27849594924 No Longer Active Dipika Burgos MD Active TESSALON PERLES 100 MG CAP 1 to 2 tablets by mouth 3 times daily as needed for cough BENZONATATE 47183425599 No Longer Active 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 APRN Active IMITREX 50 MG ORAL TABS 0.5 po x 1 PRN Headache. May repeat dose x 1 in 2 hours if needed SUMATRIPTAN SUCCINATE 30435820798 Active TAMARA Casey Active HYDROCODONE-ACETAMINOPHEN 5-325 MG TABS 1 to 2 four times a day as needed for pain use until can be seen by specialist HYDROCODONE- ACETAMINOPHEN 05879209120 No Longer Active Vishal Hui MD Active PROAIR HFA 108 (90 BASE) MCG/ACT AERS 2 puffs four times a day as needed 2015 ALBUTEROL SULFATE 61556871127 No Longer Active Vishal Hui MD Active PREDNISONE 20 MG TABS 2 daily for 5 days then 1 daily for 5 days PREDNISONE 46494094155 No Longer Active Vishal Hui MD Active ZITHROMAX Z-EARNEST 250 MG TABS 2 today and then 1 daily for 4 days AZITHROMYCIN 57065861450 No Longer Active Vishal Hui MD Active DICLOFENAC POTASSIUM TABS Take 1 tablet twice a day (pt. is not sure of the dose.) DICLOFENAC POTASSIUM TABS 10731146591 No Longer Active Vishal Hui MD Active VERAPAMIL HCL ER 120 MG ORAL CR-TABS Take 1 tablet by mouth twice a day. VERAPAMIL HCL 55782868425 Active Vishal Hui MD Active FLAGYL 500 MG TAB 1 tablet by mouth bid METRONIDAZOLE 36535909879 No Longer Active Vishal Hui MD Active FLUTICASONE PROPIONATE 50 MCG/ACT SUSP 2 sprays each nostril daily before bed. FLUTICASONE PROPIONATE 56177046377 Active Fabiola Johnson APRN Active VALIUM 5 MG TAB Take 1-2 tablets daily DIAZEPAM 29819625717 No Longer Active Fabiola Johnson APRN Active METOPROLOL TARTRATE 25 MG ORAL TABS 1/2 tablet twice daily for heart rate and blood pressure METOPROLOL TARTRATE 52303363100 No Longer Active Fabiola Johnson APRN Active MIRALAX ORAL POWD 17GMS DAILY IN WATER POLYETHYLENE GLYCOL 3350 11894072939 Active Vishal Hui MD Active MIRALAX PACK 1 po qd PRN Constipation POLYETHYLENE GLYCOL 3350 61659986115 No Longer Active Ahmet Carbajal MD Active MINIPRESS 2 MG CAPS 4 cap po at night PRAZOSIN HCL 07407550665 No Longer Active Ahmet Carbajal MD Active PIROXICAM 20 MG CAPS 1 cap po qd PRN Pain PIROXICAM 00774331448 No Longer Active Ahmet Carbajal MD Active TRAMADOL HCL 50 MG TABS 1-2 po TID PRN Pain TRAMADOL HCL 50302598986 No Longer Active Ahmet Carbajal MD Active METOPROLOL TARTRATE 50 MG TAB 1 po bid METOPROLOL TARTRATE 33597258934 No Longer Active Ahmet Carbajal MD Active ABILIFY 15 MG ORAL TABS 1 tab daily ARIPIPRAZOLE 76188400380 No Longer Active Ahmet Carbajal MD Active PROZAC 20 MG ORAL CAPS 1 tab daily FLUOXETINE HCL 69270840800 No Longer Active Ahmet Carbajal MD Active AMBIEN 5 MG ORAL TABS 1 tab at bedtime ZOLPIDEM TARTRATE 59627478578 No Longer Active Ahmet Carbajal MD Active PREDNISONE 20 MG TAB 2 tabs daily for 4 days, 1 tab daily for 4 days, 1/2 tab daily for 4 days PREDNISONE 40105585549 No Longer Active Ahmet Carbajal MD Active KEFLEX 500 MG CAP 1 po TID x 10 days CEPHALEXIN 91413082337 No Longer Active Vishal Hui MD Active SAPHRIS 5 MG SUBL 1 po bid ASENAPINE MALEATE 21950849704 No Longer Active Jillina Fralebron [employer] Active LATUDA 80 MG TABS Take one by mouth daily LURASIDONE HCL 72928963953 No Longer Active Jillina Frazell [employer] Active AMLODIPINE BESYLATE 5 MG TABS 1 tablet by mouth daily AMLODIPINE BESYLATE 19330223207 No Longer Active Jillina Fradwightl [employer] Active AMITRIPTYLINE HCL 100 MG TAB one at hs AMITRIPTYLINE HCL 67156257952 No Longer Active Vishal Hui MD Active TRAZODONE HCL 100 MG TAB take 1 at bedtime TRAZODONE HCL 00495735280 No Longer Active Vishal Hui MD Active VYVANSE 40 MG CAPS 1 daily, LISDEXAMFETAMINE DIMESYLATE 38690017217 No Longer Active Vishal Hui MD Active IBUPROFEN 600 MG TAB 1 po TID PRN IBUPROFEN 61732299168 No Longer Active Vishal Hui MD Active PROZAC 20 MG CAP Take one by mouth daily FLUOXETINE HCL 02894006876 No Longer Active Vishal Hui MD Active ZOFRAN 4 MG TABS 1 po q6hr PRN Nausea ONDANSETRON HCL Active Vishal Hui MD Active BACTRIM DS 800-160 MG TABS 1 pill by mouth twice daily SULFAMETHOXAZOLE-TRIMETHOPRIM 79762321748 No Longer Active Sahara Rodriguez MD PhD Active DIFLUCAN 150 MG TAB 1 tablet by mouth daily FLUCONAZOLE 24930649488 No Longer Active Vishal Hui MD Active TIZANIDINE HCL 4 MG TABS 1 po q6hr PRN Muscle Spasm/Back Pain TIZANIDINE HCL 37996706565 Active Vishal Hui MD Active CLINDAMYCIN HCL 150 MG CAPS 1 four times a day CLINDAMYCIN HCL 67948021478 No Longer Active Neeraj Collins MD Active KEFLEX 500 MG ORAL CAPS 1 cap QID by mouth CEPHALEXIN 36078891364 No Longer Active Neeraj Collins MD Active DIFLUCAN 150 MG TABS 1 pill every other day x 2 doses FLUCONAZOLE 71181656710 No Longer Active Sahara Rodriguez MD PhD Active MELATONIN 3 MG CAPS 2 po q hs MELATONIN 73401109245 No Longer Active Sahara Rodriguez MD PhD Active MULTIVITAMINS CAPS Take one by mouth daily MULTIPLE VITAMIN 40879821521 No Longer Active Sahara Rodriguez MD PhD Active BACTRIM DS 800-160 MG TAB 1 tab by mouth twice daily TRIMETHOPRIM-SULFAMETHOXAZOLE 51341446729 No Longer Active Sahara Rodriguez MD PhD Active [facility] PROBIOTIC ORAL CHEW 2 daily po PROBIOTIC PRODUCT 46828799923 No Longer Active Sahara Rodriguez MD PhD Active BACTRIM DS 800-160 MG TABS 1 po BID x 7 days SULFAMETHOXAZOLE-TRIMETHOPRIM 51583216382 No Longer Active Vishal Hui MD Active CHANTIX STARTING MONTH EARNEST 0.5 MG X 11 & 1 MG X 42 TABS 0.5mg daily for 3 days , then 0.5mg BID for 4 days, then 1mg BID VARENICLINE TARTRATE 46975276945 No Longer Active TAMARA Gray Active VERAPAMIL HCL CR 120 MG TAB CR 1 po bid VERAPAMIL HCL 27459142534 No Longer Active Vishal Hui MD Active METOPROLOL SUCCINATE 50 MG TB24 1 tablet by mouth daily METOPROLOL SUCCINATE 48678391450 No Longer Active Vishal Hui MD Active SAPHRIS 10 MG SUBL 1 tab po bid ASENAPINE MALEATE 09169213671 No Longer Active Vishal Hui MD Active LISINOPRIL 20 MG TABS 1 tab po qd LISINOPRIL 94874368646 No Longer Active Vishal Hui MD Active LATUDA 20 MG TABS Take one by mouth daily LURASIDONE HCL 39006747802 No Longer Active Vishal Hui MD Active TRAZODONE HCL 50 MG TABS 1/2 tab po qd prn for anxiety TRAZODONE HCL 27769357535 No Longer Active Vishal Hui MD Active OMEPRAZOLE 20 MG TBEC 1 po q a.m. 30min prior to first food intake OMEPRAZOLE 40441332465 Active Vishal Hui MD Active RANITIDINE HCL 150 MG CAPS 1 twice a day RANITIDINE HCL 95895109398 Active Jioral Martínez APRN Active LINZESS 290 MCG CAPS Take one by mouth daily LINACLOTIDE 58833196690 No Longer Active Vishal Hui MD Active SAPHRIS 5 MG SUBL 1 tab po qd ASENAPINE MALEATE 83421632580 No Longer Active Vishal Hui MD Active ZALEPLON 10 MG CAPS 1 cap po every other night ZALEPLON 78329931340 No Longer Active Vishal Hui MD Active LYRICA 50 MG CAPS 1 tab po TID PREGABALIN 64743053317 No Longer Active Vishal Hui MD Active LORATADINE 10 MG TABS 1 tab po qd LORATADINE 51770222215 No Longer Active Vishal Hui MD Active VERAPAMIL HCL ER 180 MG CR-TABS 1 tab po bid VERAPAMIL HCL 27589490826 No Longer Active Vishal Hui MD Active MIRALAX POWD 1 capfull once daily POLYETHYLENE GLYCOL 3350 40581431193 No Longer Active Vishal Hui MD Active PREDNISONE 20 MG TABS 1 tab po qd PREDNISONE 41892006489 No Longer Active Renzo Thornton DO Active LEVOFLOXACIN 500 MG TABS 1 tab po qd LEVOFLOXACIN 90393644537 No Longer Active Renzo Thornton DO Active BUSPIRONE HCL 15 MG TABS 1 tab po TID BUSPIRONE HCL 36032556920 No Longer Active Renzo Thornton DO Active BENZTROPINE MESYLATE 1 MG TABS 1 tab po qd BENZTROPINE MESYLATE 89518701114 No Longer Active Renzo Thornton DO Active ATENOLOL 25 MG TABS 1 tab po qd ATENOLOL 86189833056 No Longer Active Renzo Thornton DO Active ESCITALOPRAM OXALATE 20 MG TABS 1 tab po qd ESCITALOPRAM OXALATE 82594862429 No Longer Active Renzo Thornton DO Active ADVAIR DISKUS 250-50 MCG/DOSE AEPB 1 puff BID FLUTICASONE-SALMETEROL 91312881155 No Longer Active Renzo Thornton DO Active PREDNISONE 20 MG TAB 2 tabs daily for 3 days, 1 tab daily for 3 days, 1/2 tab daily for 2 days PREDNISONE 11262048427 No Longer Active Vishal Hui MD Active CEFDINIR 300 MG CAPS by mouth twice a day CEFDINIR 60312611801 No Longer Active Vishal Hui MD Active LANSOPRAZOLE 30 MG CPDR 1 cap po qd LANSOPRAZOLE 27338953098 No Longer Active Vishal Hui MD Active BACLOFEN 20 MG TABS 1 tab po tid BACLOFEN 42253523599 No Longer Active Vishal Hui MD Active ADVAIR DISKUS 250-50 MCG/DOSE AEPB 1 puff BID ADVAIR DISKUS 250-50 MCG/DOSE AEPB FLUTICASONE-SALMETEROL Inactive ESCITALOPRAM OXALATE 20 MG TABS 1 tab po qd ESCITALOPRAM OXALATE 20 MG TABS 482925 ESCITALOPRAM OXALATE Inactive ATENOLOL 25 MG TABS 1 tab po qd ATENOLOL 25 MG TABS 217087 ATENOLOL Inactive BENZTROPINE MESYLATE 1 MG TABS 1 tab po qd BENZTROPINE MESYLATE 1 MG TABS 092215 BENZTROPINE MESYLATE Inactive BUSPIRONE HCL 15 MG TABS 1 tab po TID BUSPIRONE HCL 15 MG TABS 308987 BUSPIRONE HCL Inactive LEVOFLOXACIN 500 MG TABS 1 tab po qd LEVOFLOXACIN 500 MG TABS 952133 LEVOFLOXACIN Inactive PREDNISONE 20 MG TABS 1 tab po qd PREDNISONE 20 MG TABS 998242 PREDNISONE Inactive MIRALAX POWD 1 capfull once daily MIRALAX POWD 722114 POLYETHYLENE GLYCOL 3350 Inactive VERAPAMIL HCL ER 180 MG CR-TABS 1 tab po bid VERAPAMIL HCL ER 180 MG CR-TABS VERAPAMIL HCL Inactive LORATADINE 10 MG TABS 1 tab po qd LORATADINE 10 MG TABS 033951 LORATADINE Inactive LYRICA 50 MG CAPS 1 tab po TID LYRICA 50 MG CAPS PREGABALIN Inactive ZALEPLON 10 MG CAPS 1 cap po every other night ZALEPLON 10 MG CAPS 519828 ZALEPLON Inactive SAPHRIS 5 MG SUBL 1 tab po qd SAPHRIS 5 MG SUBL ASENAPINE MALEATE Inactive TRAZODONE HCL 50 MG TABS 1/2 tab po qd prn for anxiety TRAZODONE HCL 50 MG TABS 583301 TRAZODONE HCL Inactive LATUDA 20 MG TABS Take one by mouth daily LATUDA 20 MG TABS LURASIDONE HCL Inactive LISINOPRIL 20 MG TABS 1 tab po qd LISINOPRIL 20 MG TABS 257922 LISINOPRIL Inactive SAPHRIS 10 MG SUBL 1 [...] twice daily BACTRIM DS 800-160 MG TAB 035176 TRIMETHOPRIM-SULFAMETHOXAZOLE Inactive MULTIVITAMINS CAPS Take one by mouth daily MULTIVITAMINS CAPS MULTIPLE VITAMIN Inactive MELATONIN 3 MG CAPS 2 po q hs MELATONIN 3 MG CAPS 730583 MELATONIN Inactive KEFLEX 500 MG ORAL CAPS 1 cap QID by mouth KEFLEX 500 MG ORAL CAPS 255633 CEPHALEXIN Inactive CLINDAMYCIN HCL 150 MG CAPS 1 four times a day CLINDAMYCIN HCL 150 MG CAPS 028662 CLINDAMYCIN HCL Inactive DIFLUCAN 150 MG TAB 1 tablet by mouth daily DIFLUCAN 150 MG TAB 282296 FLUCONAZOLE Inactive PROZAC 20 MG CAP Take one by mouth daily PROZAC 20 MG CAP 608986 FLUOXETINE HCL Inactive IBUPROFEN 600 MG TAB 1 po TID PRN IBUPROFEN 600 MG TAB 513943 IBUPROFEN Inactive VYVANSE 40 MG CAPS 1 daily, VYVANSE 40 MG CAPS LISDEXAMFETAMINE DIMESYLATE Inactive TRAZODONE HCL 100 MG TAB take 1 at bedtime TRAZODONE HCL 100 MG TAB 664611 TRAZODONE HCL Inactive AMITRIPTYLINE HCL 100 MG TAB one at hs AMITRIPTYLINE HCL 100 MG TAB 944482 AMITRIPTYLINE HCL Inactive AMLODIPINE BESYLATE 5 MG TABS 1 tablet by mouth daily AMLODIPINE BESYLATE 5 MG TABS 325353 AMLODIPINE BESYLATE Inactive LATUDA 80 MG TABS Take one by mouth daily LATUDA 80 MG TABS LURASIDONE HCL Inactive SAPHRIS 5 MG SUBL 1 po bid SAPHRIS 5 MG SUBL ASENAPINE MALEATE Inactive PREDNISONE 20 MG TAB 2 tabs daily for 4 days, 1 tab daily for 4 days, 1/2 tab daily for 4 days PREDNISONE 20 MG TAB 974594 PREDNISONE Inactive AMBIEN 5 MG ORAL TABS 1 tab at bedtime AMBIEN 5 MG ORAL TABS 679957 ZOLPIDEM TARTRATE Inactive PROZAC 20 MG ORAL CAPS 1 tab daily PROZAC 20 MG ORAL CAPS 000245 FLUOXETINE HCL Inactive ABILIFY 15 MG ORAL TABS 1 tab daily ABILIFY 15 MG ORAL TABS 167828 ARIPIPRAZOLE Inactive METOPROLOL TARTRATE 50 MG TAB 1 po bid METOPROLOL TARTRATE 50 MG TAB 625023 METOPROLOL TARTRATE Inactive TRAMADOL HCL 50 MG TABS 1-2 po TID PRN Pain TRAMADOL HCL 50 MG TABS 408149 TRAMADOL HCL Inactive PIROXICAM 20 MG CAPS 1 cap po qd PRN Pain PIROXICAM 20 MG CAPS 998413 PIROXICAM Inactive MINIPRESS 2 MG CAPS 4 cap po at night MINIPRESS 2 MG CAPS 978322 PRAZOSIN HCL Inactive MIRALAX PACK 1 po qd PRN Constipation MIRALAX PACK 247720 POLYETHYLENE GLYCOL 3350 Inactive METOPROLOL TARTRATE 25 MG ORAL TABS 1/2 tablet twice daily for heart rate and blood pressure METOPROLOL TARTRATE 25 MG ORAL TABS 151282 METOPROLOL TARTRATE Inactive VALIUM 5 MG TAB Take 1-2 tablets daily VALIUM 5 MG TAB 734574 DIAZEPAM Inactive FLAGYL 500 MG TAB 1 tablet by mouth bid FLAGYL 500 MG TAB 467638 METRONIDAZOLE Inactive DICLOFENAC POTASSIUM TABS Take 1 tablet twice a day (pt. is not sure of the dose.) DICLOFENAC POTASSIUM TABS DICLOFENAC POTASSIUM TABS Inactive ZITHROMAX Z-EARNEST 250 MG TABS 2 today and then 1 daily for 4 days ZITHROMAX Z-EARNEST 250 MG TABS 6703124 AZITHROMYCIN Inactive PREDNISONE 20 MG TABS 2 daily for 5 days then 1 daily for 5 days PREDNISONE 20 MG TABS 016475 PREDNISONE Inactive PROAIR HFA 108 (90 BASE) MCG/ACT AERS 2 puffs four times a day as needed 2015 PROAIR HFA 108 (90 BASE) MCG/ACT AERS ALBUTEROL SULFATE Inactive HYDROCODONE-ACETAMINOPHEN 5-325 MG TABS 1 to 2 four times a day as needed for pain use until can be seen by specialist HYDROCODONE- ACETAMINOPHEN 5-325 MG TABS 314448 HYDROCODONE-ACETAMINOPHEN Inactive TESSALON PERLES 100 MG CAP 1 to 2 tablets by mouth 3 times daily as needed for cough TESSALON PERLES 100 MG CAP 694375 BENZONATATE Inactive CHANTIX STARTING MONTH EARNEST 0.5 [...] PRN Pain 2015 DICLOFENAC SODIUM 50 MG [facility] 294468 DICLOFENAC SODIUM Inactive TOPAMAX 50 MG ORAL TABS 1 tab twice daily TOPAMAX 50 MG ORAL TABS 061027 TOPIRAMATE Inactive VIIBRYD 10 MG ORAL TABS Take 1 tablet once a day VIIBRYD 10 MG ORAL TABS VILAZODONE HCL Inactive LEVOFLOXACIN 500 MG ORAL TABS po daily LEVOFLOXACIN 500 MG ORAL TABS 045346 LEVOFLOXACIN Inactive METHYLPREDNISOLONE 4 MG ORAL TABS po daily METHYLPREDNISOLONE 4 MG ORAL TABS 562457 METHYLPREDNISOLONE Inactive OXYCODONE HCL ER 10 MG ORAL T12A 1/2 tab by mouth every 4 hours prn OXYCODONE HCL ER 10 MG ORAL T12A OXYCODONE HCL Inactive FLAGYL 500 MG TAB 1 tablet by mouth bid FLAGYL 500 MG TAB 222932 METRONIDAZOLE Inactive MONISTAT 7 COMBO PACK WOODROW 100 & 2 MG-% (9GM) VAG KIT 1 applicatorful per vagina q pm x 7 MONISTAT 7 COMBO PACK WOODROW 100 & 2 MG-% (9GM) VAG KIT MICONAZOLE NITRATE Inactive BACTRIM DS 800-160 MG TABS 1 twice a day BACTRIM DS 800-160 MG TABS 290205 SULFAMETHOXAZOLE-TRIMETHOPRIM Inactive TRAMADOL HCL 50 MG TABS 1/2-1 tab TID PRN TRAMADOL HCL 50 MG TABS 966194 TRAMADOL HCL Inactive ABILIFY MAINTENA 400 MG IM SUSR 400mg injection every 26 days ABILIFY MAINTENA 400 MG IM SUSR ARIPIPRAZOLE Inactive KLONOPIN 1 MG ORAL TABS 1 tab po TID KLONOPIN 1 MG ORAL TABS 297217 CLONAZEPAM Inactive ADVAIR DISKUS 250-50 MCG/DOSE INH AEPB 1 puff twice a day for asthma ADVAIR DISKUS 250-50 MCG/DOSE INH AEPB FLUTICASONE- SALMETEROL Inactive BENADRYL 25 MG CAP 4 po at bedtime for insomnia BENADRYL 25 MG CAP DIPHENHYDRAMINE HCL Inactive CEFDINIR 300 MG CAPS by mouth twice a day CEFDINIR 300 MG CAPS 858120 CEFDINIR Inactive PREDNISONE 20 MG TAB 2 tabs daily for 3 days, 1 tab daily for 3 days, 1/2 tab daily for 2 days PREDNISONE 20 MG TAB 092888 PREDNISONE Inactive BACTRIM DS 800-160 MG TABS 1 po BID x 7 days BACTRIM DS 800-160 MG TABS 19820521 SULFAMETHOXAZOLE-TRIMETHOPRIM Inactive DIFLUCAN 150 MG TABS 1 pill every other day x 2 doses DIFLUCAN 150 MG TABS 251174 FLUCONAZOLE Inactive BACTRIM DS 800-160 MG TABS 1 pill by mouth twice daily BACTRIM DS 800-160 MG TABS 19820521 SULFAMETHOXAZOLE-TRIMETHOPRIM Inactive KEFLEX 500 MG CAP 1 po TID x 10 days KEFLEX 500 MG CAP 840336 CEPHALEXIN Inactive Advance Directives Directive Description Start Date DISCUSSED WITH PATIENT -- NO DECISION MADE Vital Signs Date Name Value Unit Range Description blood pressure, diastolic - 8462-4 84 mm[Hg] [...] E&M - 3141-9 290.5 [lb_av] Weight Measured Diagnostic Results Date Name Value Unit Range Description Lab Report: CBC - Hematology leukocyte count, blood 13.8 10^3/MM^3 10*3/mm3 4.6-10.2 [...] count 390 10^3/MM^3 10*3/mm3 142-424 Lab Report: CBC, Thyroid [...] 369 10^3/MM^3 10*3/mm3 142-424 Lab Report: Chlamydia/GC [id number] - Lab chlamydia DNA probe NOT DETECTED NOT DETECTED Lab Report: Chlamydia/GC [id number] - Microbiology Neisseria gonorrhoeae DNA probe NOT DETECTED NOT DETECTED Lab Report: Comp. Metabolic Panel - Chemistry sodium, serum 139 mmol/L 417-590 8136/01/11 carbon dioxide, venous blood 26.6 mmol/L 21.0-32.0 potassium, serum 4.1 mmol/L 3.5-5.2 chloride, serum 100 mmol/L 98-107 blood glucose 86 mg/dL 65-110 urea nitrogen, blood 16 mg/dL 7-18 creatinine, serum 1.00 mg/dL 0.55-1.30 alanine aminotransferase (SGPT), serum 48 U/L - aspartate aminotransferase (SGOT), serum 17 U/L 15-37 calcium, serum 9.1 mg/dL 8.5-10.1 bilirubin, serum, total 0.40 mg/dL 0.00-1.00 sodium, serum 142 mmol/L 566-979 2493/06/08 carbon dioxide, venous blood 27.6 mmol/L 21.0-32.0 potassium, serum 4.0 mmol/L 3.5-5.2 chloride, serum 105 mmol/L 98-107 blood glucose 95 mg/dL 65-110 urea nitrogen, blood 8 mg/dL 7-18 creatinine, serum 0.75 mg/dL 0.55-1.30 alanine aminotransferase (SGPT), serum 49 U/L -78 aspartate aminotransferase (SGOT), serum 28 U/L 15-37 calcium, serum 9.4 mg/dL 8.5-10.1 bilirubin, serum, total 0.30 mg/dL 0.00-1.00 sodium, serum 140 mmol/L 826-264 7653/08/08 carbon dioxide, venous blood 33.7 mmol/L 21.0-32.0 [...] mg/dL Encounters Code Encounter Date Provider Facility CPT-32237 Level 3 Est. Patient 10:40:11 DENTAL RECEPTIONIST Ahmet Carbajal MD [facility] CPT-24829 Level 3 Est. Patient 15:07:06 DENTAL RECEPTIONIST Neeraj Collins MD [facility] CPT-58901 Level 4 Est. Patient 14:45:00 DENTAL RECEPTIONIST Ahmet Carbajal MD [facility] CPT-62349 Level 3 Est. Patient 13:59:59 CDT 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 [facility] CPT-79269 Level 3 Est. Patient 18:18:53 CDT Neeraj Collins MD [facility] CPT-42394 Level 3 Est. Patient 15:50:44 CDT Vishal Hui MD [facility] CPT-27008 Level 3 Est. Patient 11:36:17 CDT Ahmet Carbajal MD [facility] CPT-80466 Level 3 Est. Patient 13:29:16 CDT Vishal Hui MD [facility] CPT-95356 Level 3 Est. Patient 14:27:52 CDT Neeraj Collins MD [facility] CPT-78655 Level 3 Est. Patient 08:56:03 CDT 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 [facility] CPT-88469 Level 4 Est. Patient 12:11:48 CDT Fabiola Johnson [facility] CPT-49251 Level 3 New Patient 16:53:37 CDT Albert Caldera MD [facility] CPT-77521 Level 3 Est. Patient 11:25:49 CDT Renzo Thornton DO [facility] CPT-58078 Level 3 Est. Patient 15:22:01 CDT Ahmet Carbajal MD [facility] CPT-80679 Level 4 Est. Patient 09:00:51 DENTAL RECEPTIONIST Vishal Hui MD [facility] CPT-23514 Level 3 Est. Patient 11:37:33 DENTAL RECEPTIONIST Vishal Hui MD [facility] CPT-98504 Level 3 Est. Patient 08:41:09 DENTAL RECEPTIONIST Vishal Hui MD [facility] CPT-91118 Level 4 Est. Patient 10:19:35 DENTAL RECEPTIONIST Vishal Hui MD [facility] CPT-04923 Level 3 Est. Patient 13:35:45 CDT Vishal Hui MD [facility] CPT-55330 Level 4 Est. Patient 10:08:37 CDT Vishal Hui MD [facility] CPT-34809 Level 3 Est. Patient 11:22:10 CDT Vishal Hui MD [facility] CPT-92331 Level 3 Est. Patient 11:03:32 CDT Sahara Rodriguez MD [facility]-93606 Level 3 Est. Patient 09:41:35 CDT Vishal Hui MD [facility] CPT-43581 Level 3 Est. Patient 12:00:41 CDT Neeraj Collins MD [facility] CPT-78246 Level 3 Est. Patient 09:16:24 CDT Vishal Hui MD [facility] CPT-81115 Level 4 Est. Patient 13:59:09 CDT Neeraj Collins MD [facility] CPT-66664 Level 3 Est. Patient 15:19:43 CDT Renzo Thornton DO [facility] CPT-69831 Level 3 Est. Patient 18:10:26 CDT Sahara Rodriguez MD [facility] CPT-85857 Level 3 Est. Patient 14:49:50 CDT Vishal Hui MD [facility] CPT-79282 Level 4 Est. Patient 18:41:46 CDT Neeraj Collins MD [facility] CPT-63388 Level 4 Est. Patient 09:18:38 DENTAL RECEPTIONIST Vishal Hui MD [facility] CPT-39688 Level 3 Est. Patient 14:43:55 DENTAL RECEPTIONIST Vishal Hui MD [facility] CPT-01815 Level 3 Est. Patient 15:26:33 DENTAL RECEPTIONIST Sahara Rodriguez MD PhD [facility] CPT-20356 Level 3 Est. Patient 10:32:14 DENTAL RECEPTIONIST Vishal Hui MD [facility] CPT-15068 Level 3 Est. Patient 15:12:52 DENTAL RECEPTIONIST Vishal Hui MD [facility] CPT-47634 Level 4 Est. Patient 09:19:27 CDT Vishal Hui MD [facility] CPT-18940 Level 3 Est. Patient 15:53:00 CDT [facility] CPT-00413 Level 3 Est. Patient 15:50:30 CDT [facility] CPT-81053 Level 3 Est. Patient 16:55:24 CDT Vishal Hui MD [facility] Procedures Code Procedure Name Date Entry Date Standard Description CPT-50172 TSH - LAB USE ONLY 08:50:26 DENTAL RECEPTIONIST CPT-19450 CBC - LAB USE ONLY 08:50:26 DENTAL RECEPTIONIST CPT-19293 Venipuncture Draw Fee 08:50:26 DENTAL RECEPTIONIST CPT-48569 Abx/Therapy Injection 17:34:30 DENTAL RECEPTIONIST CPT-77638 Nexplanon Removal with Reinsertion 14:09:32 CDT CPT-J7307 Nexplanon (Implant) 14:09:32 CDT CPT-OV Office Visit 14:09:32 CDT CPT-21280 UA w micro - LAB USE ONLY 16:21:13 CDT CPT-06836 Wet Mount - LAB USE ONLY 16:21:13 CDT CPT-49918 First Vx - Ix admin for Medicare patients 14:37:47 CDT CPT-39667 Fluzone Preservative Free Intramuscular Suspension 14:37 :47 CDT CPT-04911 Abx/Therapy Injection 13:54:22 CDT CPT-63570 Abx/Therapy Injection 08:47:09 CDT CPT-49496 Abx/Therapy Injection 13:29:56 CDT CPT-93452 Abx/Therapy Injection 08:36:16 CDT CPT-55293 Wet Mount - LAB USE ONLY 17:44:58 CDT CPT-84297 UA w micro - LAB USE ONLY 17:44:58 CDT CPT-96879 CMP - LAB USE ONLY 17:44:58 CDT CPT-98445 Venipuncture Draw Fee 17:44:58 CDT CPT-68599 Cervical Min 4V - XRAY USE ONLY 09:01:40 CDT CPT-30951 Chest 2V Frontal and Lat - XRAY USE ONLY 11:06:31 CDT CPT-64706 EKG Trac and Interp - XRAY USE ONLY 11:31:43 CDT 08/26 CPT-J3420 Vitamin B12 1000mcg (Cyanocobalamin) 08:10:26 DENTAL RECEPTIONIST 04/12 CPT-40808 Abx/Therapy Injection 08:10:26 DENTAL RECEPTIONIST CPT-G0438 MC Initial Annual Wellness Exam 19:01:01 DENTAL RECEPTIONIST CPT-J3420 Vitamin B12 1000mcg (Cyanocobalamin) 16:57:46 CDT 08/14 CPT-33741 Recombivax HB Injection Suspension 5 MCG/0.5ML 08:37:50 DENTAL RECEPTIONIST CPT-15040 Immunization Single Admin 08:37:50 DENTAL RECEPTIONIST CPT-J3420 Vitamin B12 1000mcg (Cyanocobalamin) 08:32:16 DENTAL RECEPTIONIST 03/11 CPT-86504 Abx/Therapy Injection 08:32:16 DENTAL RECEPTIONIST CPT-49461 Chest 2V Frontal and Lat 11:46:38 DENTAL RECEPTIONIST CPT-75337 Venipuncture Draw Fee 09:12:45 DENTAL RECEPTIONIST CPT-J3420 Vitamin B12 1000mcg (Cyanocobalamin) 08:50:15 DENTAL RECEPTIONIST 02/08 CPT-31621 Abx/Therapy Injection 08:50:15 DENTAL RECEPTIONIST CPT-Cryo Cryotherapy 10:19:35 DENTAL RECEPTIONIST CPT-000 Give Appropriate Flu Vaccine 09:22:16 CDT CPT-J3420 Vitamin B12 1000mcg (Cyanocobalamin) 19:08:57 CDT 01/11 CPT-37348 Abx/Therapy Injection 19:08:57 CDT CPT-J3420 Vitamin B12 1000mcg (Cyanocobalamin) 08:19:08 CDT 12/11 CPT-73375 Abx/Therapy Injection 08:19:08 CDT CPT-J3420 Vitamin B12 1000mcg (Cyanocobalamin) 14:48:00 CDT 11/09 CPT-55378 Abx/Therapy Injection 14:47:59 CDT CPT-J3420 Vitamin B12 1000mcg (Cyanocobalamin) 08:34:04 CDT 10/09 CPT-48567 Abx/Therapy Injection 08:34:04 CDT CPT-J3420 Vitamin B12 1000mcg (Cyanocobalamin) 09:18:52 CDT 09/11 CPT-93932 Abx/Therapy Injection 09:18:52 CDT CPT-J3420 Vitamin B12 1000mcg (Cyanocobalamin) 08:35:44 CDT 09/04 CPT-41420 Abx/Therapy Injection 08:35:44 CDT CPT-70314 Immunization Single Admin 11:07:16 CDT CPT-20958 Hepatitis B adult IM 11:07:16 CDT CPT-J3420 Vitamin B12 1000mcg (Cyanocobalamin) 11:00:49 CDT 08/28 CPT-J1040 Depo Medrol 80 mg (Methyl Prednisolone Acetate) 11:00: 49 CDT CPT-30316 Abx/Therapy Injection 11:00:49 CDT CPT-J1040 Depo Medrol 80 mg (Methyl Prednisolone Acetate) 09:16: 23 CDT CPT-J3420 Vitamin B12 1000mcg (Cyanocobalamin) 08:27:05 CDT 08/20 CPT-42002 Abx/Therapy Injection 08:27:05 CDT CPT-81767 Recombivax HB Injection Suspension 5 MCG/0.5ML 10:00:41 CDT CPT-70042 Administration single or combination vaccine inc oral 10 :00:41 CDT CPT-21907 Sono transvag pelvis non OB uterus ovaries cervix 16:36: 57 CDT CPT-96931 LS spine comp w obliq 09:50:55 DENTAL RECEPTIONIST CPT-40817 Abd compl w upright 09:50:55 DENTAL RECEPTIONIST CPT-J1100 Decadron 4mg (Dexamethasone) 15:51:24 DENTAL RECEPTIONIST CPT-J1030 Depo Medrol 40 mg (Methyl Prednisolone Acetate) 15:51: 24 DENTAL RECEPTIONIST CPT-36740 Abx/Therapy Injection 15:51:24 DENTAL RECEPTIONIST CPT-J1100 Decadron 4mg (Dexamethasone) 15:26:33 DENTAL RECEPTIONIST CPT-J1030 Depo Medrol 40 mg (Methyl Prednisolone Acetate) 15:26: 33 DENTAL RECEPTIONIST CPT-03159 Sono retroperitoneal complete kidneys and bladder 17:15: 30 CDT CPT-90917 Abd compl w upright 16:09:25 CDT CPT-J1100 Decadron 8mg (Dexamethasone) 17:07:57 CDT CPT-55884 Abx/Therapy Injection 17:07:57 CDT CPT-J1100 Decadron 8mg (Dexamethasone) 16:55:24 CDT CPT-65531 Chest 2V Frontal and Lat 16:32:44 CDT
--- OUTSIDE RECORDS SUMMARY | 2016-11-04 12:03 | XMS REPORT | Clinical Summary ---
Author Author Admin, Dereck Organization [facility] Address Unknown Phone Unavailable Allergies, Adverse Reactions, [...] for removal of sutures V58.32 Resolved Vishal Hiu MD Encounter for removal of sutures Hot [...] sites Morbid obesity 278.01 Active Juliet Kimbrough BUSINESS SERVICES ANALYST Morbid obesity 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 Active Juliet Kimbrough BUSINESS SERVICES ANALYST Dependence on other enabling machines and devices [...] breath Nocturnal hypoxia 799.02 Active Fabiola Johnson BUSINESS SERVICES ANALYST Hypoxemia Neck pain 723.1 Resolved Vishal [...] TABS 1/2-1 tab TID PRN TRAMADOL HCL 47355654799 Active Lynda Juarezephraim THREAD PULLING MACHINE ATTENDANT Active PROAIR HFA 108 (90 BASE) MCG/ACT AERS 2 puffs four times a day as needed 2015 ALBUTEROL SULFATE 23365453379 Active Ahmet Carbajal MD Active EQ NICOTINE 21 MG/24HR TRANS PT24 Apply daily to stop smoking NICOTINE 88356126117 Active Ahmet Carbajal MD Active BACTRIM DS 800-160 MG TABS 1 twice a day SULFAMETHOXAZOLE- TRIMETHOPRIM 98309570601 Active Ahmet Carbajal MD Active ADVAIR DISKUS 250-50 MCG/DOSE INH AEPB 1 puff twice a day for asthma FLUTICASONE-SALMETEROL 66333471695 Active Ahmet Carbajal MD Active MONISTAT 7 COMBO PACK WOODROW 100 & 2 MG-% (9GM) VAG KIT 1 applicatorful per vagina q pm x 7 MICONAZOLE NITRATE 52522237961 No Longer Active Ahmet Carbajal MD Active FLAGYL 500 MG TAB 1 tablet by mouth bid METRONIDAZOLE 95909743606 No Longer Active Ahmet Carbajal MD Active OXYCODONE HCL ER 10 MG ORAL T12A 1/2 tab by mouth every 4 hours prn OXYCODONE HCL 32905972393 No Longer Active Ahmet Carbajal MD Active METHYLPREDNISOLONE 4 MG ORAL TABS po daily METHYLPREDNISOLONE 53393196164 No Longer Active Ahmet Carbajal MD Active LEVOFLOXACIN 500 MG ORAL TABS po daily LEVOFLOXACIN 18963273789 No Longer Active Ahmet Carbajal MD Active VIIBRYD 10 MG ORAL TABS Take 1 tablet once a day VILAZODONE HCL 29280611310 No Longer Active Ahmet Carbajal MD Active TOPAMAX 50 MG ORAL TABS 1 tab twice daily TOPIRAMATE 15789513839 No Longer Active Ahmet Carbajal MD Active DICLOFENAC SODIUM 50 MG TBEC 1 tablet by mouth four times daily PRN Pain 2015 DICLOFENAC SODIUM 61676180970 No Longer Active Ahmet Carbajal MD Active ADZENYS XR-ODT 6.3 MG ORAL TBED 1 tab po daily for ADHD AMPHETAMINE 49113638600 No Longer Active Ahmet Carbajal MD Active CHANTIX 1 MG TABS 1 twice a day to help quit smoking VARENICLINE TARTRATE 29033060713 No Longer Active Dipika Burgos MD Active CHANTIX STARTING MONTH EARNEST 0.5 MG X 11 & 1 MG X 42 TABS take as directed 2015 VARENICLINE TARTRATE 18288514088 No Longer Active Dipika Burgos MD Active TESSALON PERLES 100 MG CAP 1 to 2 tablets by mouth 3 times daily as needed for cough BENZONATATE 07039555845 No Longer Active 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 BUSINESS SERVICES ANALYST Active ABILIOMAR MAINTENA 400 MG IM SUSR 400mg injection every 26 days ARIPIPRAZOLE 29138679261 Active Silvia Ervinum THREAD PULLING MACHINE ATTENDANT Active IMITREX 50 MG ORAL TABS 0.5 po x 1 PRN Headache. May repeat dose x 1 in 2 hours if needed SUMATRIPTAN SUCCINATE 94464854277 Active Lynda Xiao THREAD PULLING MACHINE ATTENDANT Active HYDROCODONE-ACETAMINOPHEN 5-325 MG TABS 1 to 2 four times a day as needed for pain use until can be seen by specialist HYDROCODONE- ACETAMINOPHEN 30762114893 No Longer Active Vishal Hui MD Active PROAIR HFA 108 (90 BASE) MCG/ACT AERS 2 puffs four times a day as needed 2015 ALBUTEROL SULFATE 18500259634 No Longer Active Vishal Hui MD Active PREDNISONE 20 MG TABS 2 daily for 5 days then 1 daily for 5 days PREDNISONE 98291929048 No Longer Active Vishal Hui MD Active ZITHROMAX Z-EARNEST 250 MG TABS 2 today and then 1 daily for 4 days AZITHROMYCIN 65875395215 No Longer Active Vishal Hui MD Active DICLOFENAC POTASSIUM TABS Take 1 tablet twice a day (pt. is not sure of the dose.) DICLOFENAC POTASSIUM TABS 23990824026 No Longer Active Vishal Hui MD Active VERAPAMIL HCL ER 120 MG ORAL CR-TABS Take 1 tablet by mouth twice a day. VERAPAMIL HCL 81306202346 Active Vishal Hui MD Active FLAGYL 500 MG TAB 1 tablet by mouth bid METRONIDAZOLE 43225963391 No Longer Active Vishal Hui MD Active FLUTICASONE PROPIONATE 50 MCG/ACT SUSP 2 sprays each nostril daily before bed. FLUTICASONE PROPIONATE 92491860860 Active Fabiola Johnson APRN Active BENADRYL 25 MG CAP 4 po at bedtime for insomnia DIPHENHYDRAMINE HCL 75676035074 Active Fabiola Johnson APRN Active KLONOPIN 1 MG ORAL TABS 1 tab po TID CLONAZEPAM 42472043841 Active Fabiola Johnson APRN Active VALIUM 5 MG TAB Take 1-2 tablets daily DIAZEPAM 55643714993 No Longer Active Fabiola Johnson APRN Active METOPROLOL TARTRATE 25 MG ORAL TABS 1/2 tablet twice daily for heart rate and blood pressure METOPROLOL TARTRATE 94974075696 No Longer Active Fabiola Johnson APRN Active MIRALAX ORAL POWD 17GMS DAILY IN WATER POLYETHYLENE GLYCOL 3350 84645239207 Active Vishal Hui MD Active MIRALAX PACK 1 po qd PRN Constipation POLYETHYLENE GLYCOL 3350 97249589156 No Longer Active Ahmet Carbajal MD Active MINIPRESS 2 MG CAPS 4 cap po at night PRAZOSIN HCL 91192864857 No Longer Active Ahmet Carbajal MD Active PIROXICAM 20 MG CAPS 1 cap po qd PRN Pain PIROXICAM 62643073013 No Longer Active Ahmet Carbajal MD Active TRAMADOL HCL 50 MG TABS 1-2 po TID PRN Pain TRAMADOL HCL 86791095995 No Longer Active Ahmet Carbajal MD Active METOPROLOL TARTRATE 50 MG TAB 1 po bid METOPROLOL TARTRATE 74990997417 No Longer Active Ahmet Carbajal MD Active ABILIFY 15 MG ORAL TABS 1 tab daily ARIPIPRAZOLE 77263945610 No Longer Active Ahmet Carbajal MD Active PROZAC 20 MG ORAL CAPS 1 tab daily FLUOXETINE HCL 36551172786 No Longer Active Ahmet Carbajal MD Active AMBIEN 5 MG ORAL TABS 1 tab at bedtime ZOLPIDEM TARTRATE 42100310323 No Longer Active Ahmet Carbajal MD Active PREDNISONE 20 MG TAB 2 tabs daily for 4 days, 1 tab daily for 4 days, 1/2 tab daily for 4 days PREDNISONE 45795196811 No Longer Active Ahmet Carbajal MD Active KEFLEX 500 MG CAP 1 po TID x 10 days CEPHALEXIN 90087994011 No Longer Active Vishal Hui MD Active SAPHRIS 5 MG SUBL 1 po bid ASENAPINE MALEATE 06377322687 No Longer Active 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 APRN Active LATUDA 80 MG TABS Take one by mouth daily LURASIDONE HCL 74551056590 No Longer Active Jillina Frazelephraim BUSINESS SERVICES ANALYST Active AMLODIPINE BESYLATE 5 MG TABS 1 tablet by mouth daily AMLODIPINE BESYLATE 30218080769 No Longer Active Jillina Fralebron BUSINESS SERVICES ANALYST Active AMITRIPTYLINE HCL 100 MG TAB one at hs AMITRIPTYLINE HCL 39146128084 No Longer Active Vishal Hui MD Active TRAZODONE HCL 100 MG TAB take 1 at bedtime TRAZODONE HCL 05674644657 No Longer Active Vishal Hui MD Active VYVANSE 40 MG CAPS 1 daily, LISDEXAMFETAMINE DIMESYLATE 43630679585 No Longer Active Vishal Hui MD Active IBUPROFEN 600 MG TAB 1 po TID PRN IBUPROFEN 03275542460 No Longer Active Vishal Hui MD Active PROZAC 20 MG CAP Take one by mouth daily FLUOXETINE HCL 91464188959 No Longer Active Vishal Hui MD Active ZOFRAN 4 MG TABS 1 po q6hr PRN Nausea ONDANSETRON HCL Active Vishal Hui MD Active BACTRIM DS 800-160 MG TABS 1 pill by mouth twice daily SULFAMETHOXAZOLE-TRIMETHOPRIM 56266687189 No Longer Active Sahara Rodriguez MD PhD Active DIFLUCAN 150 MG TAB 1 tablet by mouth daily FLUCONAZOLE 96286052902 No Longer Active Vishal Hui MD Active TIZANIDINE HCL 4 MG TABS 1 po q6hr PRN Muscle Spasm/Back Pain TIZANIDINE HCL 52210062594 Active Vishal Hui MD Active CLINDAMYCIN HCL 150 MG CAPS 1 four times a day CLINDAMYCIN HCL 37352424293 No Longer Active Neeraj Collins MD Active KEFLEX 500 MG ORAL CAPS 1 cap QID by mouth CEPHALEXIN 63127881903 No Longer Active Neeraj Collins MD Active DIFLUCAN 150 MG TABS 1 pill every other day x 2 doses FLUCONAZOLE 86035123195 No Longer Active Sahara Rodriguez MD PhD Active MELATONIN 3 MG CAPS 2 po q hs MELATONIN 31996034085 No Longer Active Sahara Rodriguez MD PhD Active MULTIVITAMINS CAPS Take one by mouth daily MULTIPLE VITAMIN 99363426992 No Longer Active Sahara Rodriguez MD PhD Active BACTRIM DS 800-160 MG TAB 1 tab by mouth twice daily TRIMETHOPRIM-SULFAMETHOXAZOLE 02563067238 No Longer Active Sahara Rodriguez MD PhD Active [facility] PROBIOTIC ORAL CHEW 2 daily po PROBIOTIC PRODUCT 82998936672 No Longer Active Sahara Rodriguez MD PhD Active BACTRIM DS 800-160 MG TABS 1 po BID x 7 days SULFAMETHOXAZOLE-TRIMETHOPRIM 27831687122 No Longer Active Vishal Hui MD Active CHANTIX STARTING MONTH EARNEST 0.5 MG X 11 & 1 MG X 42 TABS 0.5mg daily for 3 days , then 0.5mg BID for 4 days, then 1mg BID VARENICLINE TARTRATE 89585491444 No Longer Active TAMARA Gray Active VERAPAMIL HCL CR 120 MG TAB CR 1 po bid VERAPAMIL HCL 31515266709 No Longer Active Vishal Hui MD Active METOPROLOL SUCCINATE 50 MG TB24 1 tablet by mouth daily METOPROLOL SUCCINATE 43184135965 No Longer Active Vishal Hui MD Active SAPHRIS 10 MG SUBL 1 tab po bid ASENAPINE MALEATE 64435031906 No Longer Active Vishal Hui MD Active LISINOPRIL 20 MG TABS 1 tab po qd LISINOPRIL 24842899190 No Longer Active Vishal Hui MD Active LATUDA 20 MG TABS Take one by mouth daily LURASIDONE HCL 03769366241 No Longer Active Vishal Hui MD Active TRAZODONE HCL 50 MG TABS 1/2 tab po qd prn for anxiety TRAZODONE HCL 70441372870 No Longer Active Vishal Hui MD Active OMEPRAZOLE 20 MG TBEC 1 po q a.m. 30min prior to first food intake OMEPRAZOLE 68173824579 Active Vishal Hui MD Active RANITIDINE HCL 150 MG CAPS 1 twice a day RANITIDINE HCL 31772730993 Active 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 BUSINESS SERVICES ANALYST Active LINZESS 290 MCG CAPS Take one by mouth daily LINACLOTIDE 48431469929 No Longer Active Vishal Hui MD Active SAPHRIS 5 MG SUBL 1 tab po qd ASENAPINE MALEATE 93633484905 No Longer Active Vishal Hui MD Active ZALEPLON 10 MG CAPS 1 cap po every other night ZALEPLON 78901141229 No Longer Active Vishal Hui MD Active LYRICA 50 MG CAPS 1 tab po TID PREGABALIN 99140387612 No Longer Active Vishal Hui MD Active LORATADINE 10 MG TABS 1 tab po qd LORATADINE 18184623719 No Longer Active Vishal Hui MD Active VERAPAMIL HCL ER 180 MG CR-TABS 1 tab po bid VERAPAMIL HCL 46824553845 No Longer Active Vishal Hui MD Active MIRALAX POWD 1 capfull once daily POLYETHYLENE GLYCOL 3350 35759316546 No Longer Active Vishal Hui MD Active PREDNISONE 20 MG TABS 1 tab po qd PREDNISONE 31611445098 No Longer Active Renzo Thornton DO Active LEVOFLOXACIN 500 MG TABS 1 tab po qd LEVOFLOXACIN 85161744243 No Longer Active Renzo Thornton DO Active BUSPIRONE HCL 15 MG TABS 1 tab po TID BUSPIRONE HCL 17795006578 No Longer Active Renzo Thornton DO Active BENZTROPINE MESYLATE 1 MG TABS 1 tab po qd BENZTROPINE MESYLATE 42851553884 No Longer Active Renzo Thornton DO Active ATENOLOL 25 MG TABS 1 tab po qd ATENOLOL 30542710159 No Longer Active Renzo Thornton DO Active ESCITALOPRAM OXALATE 20 MG TABS 1 tab po qd ESCITALOPRAM OXALATE 91150569013 No Longer Active Renzo Thornton DO Active ADVAIR DISKUS 250-50 MCG/DOSE AEPB 1 puff BID FLUTICASONE-SALMETEROL 45696397382 No Longer Active Renzo Thornton DO Active PREDNISONE 20 MG TAB 2 tabs daily for 3 days, 1 tab daily for 3 days, 1/2 tab daily for 2 days PREDNISONE 21189604701 No Longer Active Vishal Hui MD Active CEFDINIR 300 MG CAPS by mouth twice a day CEFDINIR 19470410545 No Longer Active Vishal Hui MD Active LANSOPRAZOLE 30 MG CPDR 1 cap po qd LANSOPRAZOLE 63428424948 No Longer Active Vishal Hui MD Active BACLOFEN 20 MG TABS 1 tab po tid BACLOFEN 74171903299 No Longer Active Vishal Hui MD Active ADVAIR DISKUS 250-50 MCG/DOSE AEPB 1 puff BID ADVAIR DISKUS 250-50 MCG/DOSE AEPB FLUTICASONE-SALMETEROL Inactive ESCITALOPRAM OXALATE 20 MG TABS 1 tab po qd ESCITALOPRAM OXALATE 20 MG TABS 785440 ESCITALOPRAM OXALATE Inactive ATENOLOL 25 MG TABS 1 tab po qd ATENOLOL 25 MG TABS 958075 ATENOLOL Inactive BENZTROPINE MESYLATE 1 MG TABS 1 tab po qd BENZTROPINE MESYLATE 1 MG TABS 834301 BENZTROPINE MESYLATE Inactive BUSPIRONE HCL 15 MG TABS 1 tab po TID BUSPIRONE HCL 15 MG TABS 160288 BUSPIRONE HCL Inactive LEVOFLOXACIN 500 MG TABS 1 tab po qd LEVOFLOXACIN 500 MG TABS 539404 LEVOFLOXACIN Inactive PREDNISONE 20 MG TABS 1 tab po qd PREDNISONE 20 MG TABS 271024 PREDNISONE Inactive MIRALAX POWD 1 capfull once daily MIRALAX POWD 978294 POLYETHYLENE GLYCOL 3350 Inactive VERAPAMIL HCL ER 180 MG CR-TABS 1 tab po bid VERAPAMIL HCL ER 180 MG CR-TABS VERAPAMIL HCL Inactive LORATADINE 10 MG TABS 1 tab po qd LORATADINE 10 MG TABS 752753 LORATADINE Inactive LYRICA 50 MG CAPS 1 tab po TID LYRICA 50 MG CAPS PREGABALIN Inactive ZALEPLON 10 MG CAPS 1 cap po every other night ZALEPLON 10 MG CAPS 523792 ZALEPLON Inactive SAPHRIS 5 MG SUBL 1 tab po qd SAPHRIS 5 MG SUBL ASENAPINE MALEATE Inactive TRAZODONE HCL 50 MG TABS 1/2 tab po qd prn for anxiety TRAZODONE HCL 50 MG TABS 217034 TRAZODONE HCL Inactive LATUDA 20 MG TABS Take one by mouth daily LATUDA 20 MG TABS LURASIDONE HCL Inactive LISINOPRIL 20 MG TABS 1 tab po qd LISINOPRIL 20 MG TABS 131174 LISINOPRIL Inactive SAPHRIS 10 MG SUBL 1 [...] twice daily BACTRIM DS 800-160 MG TAB 220105 TRIMETHOPRIM-SULFAMETHOXAZOLE Inactive MULTIVITAMINS CAPS Take one by mouth daily MULTIVITAMINS CAPS MULTIPLE VITAMIN Inactive MELATONIN 3 MG CAPS 2 po q hs MELATONIN 3 MG CAPS 299434 MELATONIN Inactive KEFLEX 500 MG ORAL CAPS 1 cap QID by mouth KEFLEX 500 MG ORAL CAPS 073017 CEPHALEXIN Inactive CLINDAMYCIN HCL 150 MG CAPS 1 four times a day CLINDAMYCIN HCL 150 MG CAPS 19740326 CLINDAMYCIN HCL Inactive DIFLUCAN 150 MG TAB 1 tablet by mouth daily DIFLUCAN 150 MG TAB 303140 FLUCONAZOLE Inactive PROZAC 20 MG CAP Take one by mouth daily PROZAC 20 MG CAP 382805 FLUOXETINE HCL Inactive IBUPROFEN 600 MG TAB 1 po TID PRN IBUPROFEN 600 MG TAB 722526 IBUPROFEN Inactive VYVANSE 40 MG CAPS 1 daily, VYVANSE 40 MG CAPS LISDEXAMFETAMINE DIMESYLATE Inactive TRAZODONE HCL 100 MG TAB take 1 at bedtime TRAZODONE HCL 100 MG TAB 730320 TRAZODONE HCL Inactive AMITRIPTYLINE HCL 100 MG TAB one at hs AMITRIPTYLINE HCL 100 MG TAB 904707 AMITRIPTYLINE HCL Inactive AMLODIPINE BESYLATE 5 MG TABS 1 tablet by mouth daily AMLODIPINE BESYLATE 5 MG TABS 152061 AMLODIPINE BESYLATE Inactive LATUDA 80 MG TABS Take one by mouth daily LATUDA 80 MG TABS LURASIDONE HCL Inactive SAPHRIS 5 MG SUBL 1 po bid SAPHRIS 5 MG SUBL ASENAPINE MALEATE Inactive PREDNISONE 20 MG TAB 2 tabs daily for 4 days, 1 tab daily for 4 days, 1/2 tab daily for 4 days PREDNISONE 20 MG TAB 612661 PREDNISONE Inactive AMBIEN 5 MG ORAL TABS 1 tab at bedtime AMBIEN 5 MG ORAL TABS 720355 ZOLPIDEM TARTRATE Inactive PROZAC 20 MG ORAL CAPS 1 tab daily PROZAC 20 MG ORAL CAPS 689702 FLUOXETINE HCL Inactive ABILIFY 15 MG ORAL TABS 1 tab daily ABILIFY 15 MG ORAL TABS 159486 ARIPIPRAZOLE Inactive METOPROLOL TARTRATE 50 MG TAB 1 po bid METOPROLOL TARTRATE 50 MG TAB 683973 METOPROLOL TARTRATE Inactive TRAMADOL HCL 50 MG TABS 1-2 po TID PRN Pain TRAMADOL HCL 50 MG TABS 309139 TRAMADOL HCL Inactive PIROXICAM 20 MG CAPS 1 cap po qd PRN Pain PIROXICAM 20 MG CAPS 724841 PIROXICAM Inactive MINIPRESS 2 MG CAPS 4 cap po at night MINIPRESS 2 MG CAPS 071238 PRAZOSIN HCL Inactive MIRALAX PACK 1 po qd PRN Constipation MIRALAX PACK 151210 POLYETHYLENE GLYCOL 3350 Inactive METOPROLOL TARTRATE 25 MG ORAL TABS 1/2 tablet twice daily for heart rate and blood pressure METOPROLOL TARTRATE 25 MG ORAL TABS 172855 METOPROLOL TARTRATE Inactive VALIUM 5 MG TAB Take 1-2 tablets daily VALIUM 5 MG TAB 112336 DIAZEPAM Inactive FLAGYL 500 MG TAB 1 tablet by mouth bid FLAGYL 500 MG TAB 349015 METRONIDAZOLE Inactive DICLOFENAC POTASSIUM TABS Take 1 tablet twice a day (pt. is not sure of the dose.) DICLOFENAC POTASSIUM TABS DICLOFENAC POTASSIUM TABS Inactive ZITHROMAX Z-EARNEST 250 MG TABS 2 today and then 1 daily for 4 days ZITHROMAX Z-EARNEST 250 MG TABS 7242502 AZITHROMYCIN Inactive PREDNISONE 20 MG TABS 2 daily for 5 days then 1 daily for 5 days PREDNISONE 20 MG TABS 628090 PREDNISONE Inactive PROAIR HFA 108 (90 BASE) MCG/ACT AERS 2 puffs four times a day as needed 2015 PROAIR HFA 108 (90 BASE) MCG/ACT AERS ALBUTEROL SULFATE Inactive HYDROCODONE-ACETAMINOPHEN 5-325 MG TABS 1 to 2 four times a day as needed for pain use until can be seen by specialist HYDROCODONE- ACETAMINOPHEN 5-325 MG TABS 521258 HYDROCODONE-ACETAMINOPHEN Inactive TESSALON PERLES 100 MG CAP 1 to 2 tablets by mouth 3 times daily as needed for cough TESSALON PERLES 100 MG CAP 693575 BENZONATATE Inactive CHANTIX STARTING MONTH EARNEST 0.5 [...] Pain 2015 DICLOFENAC SODIUM 50 MG TBEC 685090 DICLOFENAC SODIUM Inactive TOPAMAX 50 MG ORAL TABS 1 tab twice daily TOPAMAX 50 MG ORAL TABS 000344 TOPIRAMATE Inactive VIIBRYD 10 MG ORAL TABS Take 1 tablet once a day VIIBRYD 10 MG ORAL TABS VILAZODONE HCL Inactive LEVOFLOXACIN 500 MG ORAL TABS po daily LEVOFLOXACIN 500 MG ORAL TABS 243567 LEVOFLOXACIN Inactive METHYLPREDNISOLONE 4 MG ORAL TABS po daily METHYLPREDNISOLONE 4 MG ORAL TABS 538411 METHYLPREDNISOLONE Inactive OXYCODONE HCL ER 10 MG ORAL T12A 1/2 tab by mouth every 4 hours prn OXYCODONE HCL ER 10 MG ORAL T12A OXYCODONE HCL Inactive FLAGYL 500 MG TAB 1 tablet by mouth bid FLAGYL 500 MG TAB 571214 METRONIDAZOLE Inactive MONISTAT 7 COMBO PACK WOODROW 100 & 2 MG-% (9GM) VAG KIT 1 applicatorful per vagina q pm x 7 MONISTAT 7 COMBO PACK WOODROW 100 & 2 MG-% (9GM) VAG KIT MICONAZOLE NITRATE Inactive CEFDINIR 300 MG CAPS by mouth twice a day CEFDINIR 300 MG CAPS 730417 CEFDINIR Inactive PREDNISONE 20 MG TAB 2 tabs daily for 3 days, 1 tab daily for 3 days, 1/2 tab daily for 2 days PREDNISONE 20 MG TAB 160615 PREDNISONE Inactive BACTRIM DS 800-160 MG TABS 1 po BID x 7 days BACTRIM DS 800-160 MG TABS 19820521 SULFAMETHOXAZOLE-TRIMETHOPRIM Inactive DIFLUCAN 150 MG TABS 1 pill every other day x 2 doses DIFLUCAN 150 MG TABS 448853 FLUCONAZOLE Inactive BACTRIM DS 800-160 MG TABS 1 pill by mouth twice daily BACTRIM DS 800-160 MG TABS 19820521 SULFAMETHOXAZOLE-TRIMETHOPRIM Inactive KEFLEX 500 MG CAP 1 po TID x 10 days KEFLEX 500 MG CAP 392110 CEPHALEXIN Inactive Advance Directives Directive Description Start [...] % 11.6-14.8 platelet count 394 10^3/MM^3 10*3/mm3 395-646 6391/01/11 leukocyte count, blood 13.8 10^3/MM^3 10*3/mm3 4.6-10.2 [...] count 390 10^3/MM^3 10*3/mm3 142-424 Lab Report: Chlamydia/GC [facility]/[id number] - Lab chlamydia DNA probe NOT DETECTED NOT DETECTED Lab Report: Chlamydia/GC [facility]/58043 - Microbiology Neisseria gonorrhoeae DNA probe NOT DETECTED NOT DETECTED Lab Report: Comp. Metabolic Panel - Chemistry sodium, serum 140 mmol/L 245-861 3231/08/08 carbon dioxide, venous blood 33.7 mmol/L 21.0-32.0 potassium, serum 5.0 mmol/L 3.5-5.2 chloride, serum 103 mmol/L 98-107 blood glucose 80 mg/dL 65-110 urea nitrogen, blood 13 mg/dL 7-18 creatinine, serum 0.88 mg/dL 0.55-1.30 alanine aminotransferase (SGPT), serum 54 U/L -78 aspartate aminotransferase (SGOT), serum 29 U/L 15-37 calcium, serum 9.7 mg/dL 8.5-10.1 bilirubin, serum, total 0.30 mg/dL 0.00-1.00 sodium, serum 139 mmol/L 119-893 2299/12/22 carbon dioxide, venous blood 26.8 mmol/L 21.0-32.0 potassium, serum 4.2 mmol/L 3.5-5.2 chloride, serum 103 mmol/L 98-107 blood glucose 115 mg/dL 65-110 urea nitrogen, blood 20 mg/dL 7-18 creatinine, serum 0.90 mg/dL 0.55-1.30 alanine aminotransferase (SGPT), serum 38 U/L aspartate aminotransferase (SGOT), serum 19 U/L 15-37 calcium, serum 8.6 mg/dL 8.5-10.1 bilirubin, serum, total 0.30 mg/dL 0.00-1.00 sodium, serum 139 mmol/L 141-540 1841/01/11 carbon dioxide, venous blood 26.6 mmol/L 21.0-32.0 potassium, serum 4.1 mmol/L 3.5-5.2 chloride, serum 100 mmol/L 98-107 blood glucose 86 mg/dL 65-110 urea nitrogen, blood 16 mg/dL 7-18 creatinine, serum 1.00 mg/dL 0.55-1.30 alanine aminotransferase (SGPT), serum 48 U/L 12-78 aspartate aminotransferase (SGOT), serum 17 U/L 15-37 calcium, serum 9.1 mg/dL 8.5-10.1 bilirubin, serum, total 0.40 mg/dL 0.00-1.00 sodium, serum 142 mmol/L 126-829 5084/06/08 carbon dioxide, venous blood 27.6 mmol/L 21.0-32.0 [...] mg/dL Encounters Code Encounter Date Provider Facility CPT-48859 Level 3 Est. Patient 15:07:06 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 Neeraj Collins MD [facility] CPT-61357 Level 4 Est. Patient 14:45:00 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 Ahmet Carbajal MD [facility] CPT-58337 Level 3 Est. Patient 13:59:59 CDT 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 APRN [facility] CPT-58990 Level 3 Est. Patient 18:18:53 CDT Neeraj Collins MD [facility] CPT-02463 Level 3 Est. Patient 15:50:44 CDT Vishal Hui MD [facility] CPT-90788 Level 3 Est. Patient 11:36:17 CDT Ahmet Carbajal MD [facility] CPT-73582 Level 3 Est. Patient 13:29:16 CDT Vishal Hui MD [facility] CPT-69402 Level 3 Est. Patient 14:27:52 CDT Neeraj Collins MD [facility] CPT-65117 Level 3 Est. Patient 08:56:03 CDT 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 [facility] CPT-64332 Level 4 Est. Patient 12:11:48 CDT Fabiola Johnson [facility] CPT-06182 Level 3 New Patient 16:53:37 CDT Albert Caldera MD [facility] CPT-63762 Level 3 Est. Patient 11:25:49 CDT Renzo Thornton DO [facility] CPT-20798 Level 3 Est. Patient 15:22:01 CDT Ahmet Carbajal MD [facility] CPT-74510 Level 4 Est. Patient 09:00:51 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 Vishal Hui MD [facility] CPT-76983 Level 3 Est. Patient 11:37:33 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 Vishal Hui MD [facility] CPT-15675 Level 3 Est. Patient 08:41:09 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 Vishal Hui MD [facility] CPT-99475 Level 4 Est. Patient 10:19:35 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 Vishal Hui MD [facility] CPT-43212 Level 3 Est. Patient 13:35:45 CDT Vishal Hui MD [facility] CPT-79612 Level 4 Est. Patient 10:08:37 CDT Vishal Hui MD [facility] CPT-09678 Level 3 Est. Patient 11:22:10 CDT Vishal Hui MD [facility] CPT-10024 Level 3 Est. Patient 11:03:32 CDT Sahara Rodriguez MD [facility]-20861 Level 3 Est. Patient 09:41:35 CDT Vishal Hui MD [facility]-78783 Level 3 Est. Patient 12:00:41 CDT Neeraj Collins MD [facility] CPT-88715 Level 3 Est. Patient 09:16:24 CDT Vishal Hui MD [facility] CPT-68557 Level 4 Est. Patient 13:59:09 CDT Neeraj Collins MD [facility] CPT-57966 Level 3 Est. Patient 15:19:43 CDT Renzo Thornton DO [facility] CPT-71860 Level 3 Est. Patient 18:10:26 CDT Sahara Rodriguez MD [facility] CPT-20611 Level 3 Est. Patient 14:49:50 CDT Vishal Hui MD [facility]-18295 Level 4 Est. Patient 18:41:46 CDT Neeraj Collins MD [facility]-43151 Level 4 Est. Patient 09:18:38 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 Vishal Hui MD [facility]-05398 Level 3 Est. Patient 14:43:55 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 Vishal Hui MD [facility] CPT-87520 Level 3 Est. Patient 15:26:33 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 Sahara Rodriguez MD [facility]-00894 Level 3 Est. Patient 10:32:14 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 Vishal Hui MD [facility]-35708 Level 3 Est. Patient 15:12:52 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 Vishal Hui MD [facility] CPT-90645 Level 4 Est. Patient 09:19:27 CDT Vishal Hui MD [facility] CPT-99201 Level 3 Est. Patient 15:53:00 CDT Renzo Thornton [facility] CPT-75730 Level 3 Est. Patient 15:50:30 CDT Renzo Thornton [facility] CPT-95994 Level 3 Est. Patient 16:55:24 CDT Vishal Hui MD [facility] Procedures Code Procedure Name Date Entry Date Standard Description CPT-45477 Abx/Therapy Injection 17:34:30 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 CPT-66863 Nexplanon Removal with Reinsertion 14:09:32 CDT CPT-J7307 Nexplanon (Implant) 14:09:32 CDT CPT-OV Office Visit 14:09:32 CDT CPT-60556 UA w micro - LAB USE ONLY 16:21:13 CDT CPT-37852 Wet Mount - LAB USE ONLY 16:21:13 CDT CPT-12741 First Vx - Ix admin for Medicare patients 14:37:47 CDT CPT-36501 Fluzone Preservative Free Intramuscular Suspension 14:37 :47 CDT CPT-36667 Abx/Therapy Injection 13:54:22 CDT CPT-58925 Abx/Therapy Injection 08:47:09 CDT CPT-81728 Abx/Therapy Injection 13:29:56 CDT CPT-05189 Abx/Therapy Injection 08:36:16 CDT CPT-71929 Wet Mount - LAB USE ONLY 17:44:58 CDT CPT-11194 UA w micro - LAB USE ONLY 17:44:58 CDT CPT-94951 CMP - LAB USE ONLY 17:44:58 CDT CPT-22035 Venipuncture Draw Fee 17:44:58 CDT CPT-49134 Cervical Min 4V - XRAY USE ONLY 09:01:40 CDT CPT-47001 Chest 2V Frontal and Lat - XRAY USE ONLY 11:06:31 CDT CPT-36228 EKG Trac and Interp - XRAY USE ONLY 11:31:43 CDT 08/26 CPT-J3420 Vitamin B12 1000mcg (Cyanocobalamin) 08:10:26 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 04/12 CPT-00472 Abx/Therapy Injection 08:10:26 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 CPT-G0438 Initial Annual Wellness Exam 19:01:01 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 CPT-J3420 Vitamin B12 1000mcg (Cyanocobalamin) 16:57:46 CDT 08/14 CPT-94518 Recombivax HB Injection Suspension 5 MCG/0.5ML 08:37:50 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-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 Immunization Single Admin 08:37:50 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 CPT-J3420 Vitamin B12 1000mcg (Cyanocobalamin) 08:32:16 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 03/11 CPT-93655 Abx/Therapy Injection 08:32:16 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 CPT-88563 Chest 2V Frontal and Lat 11:46:38 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 CPT-40225 Venipuncture Draw Fee 09:12:45 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 CPT-J3420 Vitamin B12 1000mcg (Cyanocobalamin) 08:50:15 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 02/08 CPT-86768 Abx/Therapy Injection 08:50:15 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 CPT-Cryo Cryotherapy 10:19:35 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 CPT-000 Give Appropriate Flu Vaccine 09:22:16 CDT CPT-J3420 Vitamin B12 1000mcg (Cyanocobalamin) 19:08:57 CDT 01/11 CPT-35010 Abx/Therapy Injection 19:08:57 CDT CPT-J3420 Vitamin B12 1000mcg (Cyanocobalamin) 08:19:08 CDT 12/11 CPT-00402 Abx/Therapy Injection 08:19:08 CDT CPT-J3420 Vitamin B12 1000mcg (Cyanocobalamin) 14:48:00 CDT 11/09 CPT-59732 Abx/Therapy Injection 14:47:59 CDT CPT-J3420 Vitamin B12 1000mcg (Cyanocobalamin) 08:34:04 CDT 10/09 CPT-30584 Abx/Therapy Injection 08:34:04 CDT CPT-J3420 Vitamin B12 1000mcg (Cyanocobalamin) 09:18:52 CDT 09/11 CPT-66194 Abx/Therapy Injection 09:18:52 CDT CPT-J3420 Vitamin B12 1000mcg (Cyanocobalamin) 08:35:44 CDT 09/04 CPT-85370 Abx/Therapy Injection 08:35:44 CDT CPT-84887 Immunization Single Admin 11:07:16 CDT CPT-67944 Hepatitis B adult IM 11:07:16 CDT CPT-J3420 Vitamin B12 1000mcg (Cyanocobalamin) 11:00:49 CDT 08/28 CPT-J1040 Depo Medrol 80 mg (Methyl Prednisolone Acetate) 11:00: 49 CDT CPT-50709 Abx/Therapy Injection 11:00:49 CDT CPT-J1040 Depo Medrol 80 mg (Methyl Prednisolone Acetate) 09:16: 23 CDT CPT-J3420 Vitamin B12 1000mcg (Cyanocobalamin) 08:27:05 CDT 08/20 CPT-34380 Abx/Therapy Injection 08:27:05 CDT CPT-79438 Recombivax HB Injection Suspension 5 MCG/0.5ML 10:00:41 CDT CPT-71478 Administration single or combination vaccine inc oral 10 :00:41 CDT CPT-40366 Sono transvag pelvis non OB uterus ovaries cervix 16:36: 57 CDT CPT-32343 LS spine comp w obliq 09:50:55 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 CPT-21186 Abd compl w upright 09:50:55 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 CPT-J1100 Decadron 4mg (Dexamethasone) 15:51:24 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 CPT-J1030 Depo Medrol 40 mg (Methyl Prednisolone Acetate) 15:51: 24 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 CPT-60162 Abx/Therapy Injection 15:51:24 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 CPT-J1100 Decadron 4mg (Dexamethasone) 15:26:33 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 CPT-J1030 Depo Medrol 40 mg (Methyl Prednisolone Acetate) 15:26: 33 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 CPT-35313 Sono retroperitoneal complete kidneys and bladder 17:15: 30 CDT CPT-37964 Abd compl w upright 16:09:25 CDT CPT-J1100 Decadron 8mg (Dexamethasone) 17:07:57 CDT CPT-41258 Abx/Therapy Injection 17:07:57 CDT CPT-J1100 Decadron 8mg (Dexamethasone) 16:55:24 CDT CPT-74773 Chest 2V Frontal and Lat 16:32:44 CDT
[2016-11-04] MEDS ORDERED: ONDA8TAB13 PO (12:05)
--- OUTSIDE RECORDS SUMMARY | 2016-11-04 12:05 | XMS REPORT | Clinical Summary ---
Author Author Admin, [place] Organization [facility] Address Unknown Phone Unavailable Allergies, [...] Shortness of breath 786.05 Active Fabiola Johnson PIANO MOVER Shortness of breath Nocturnal hypoxia 799.02 Active Fabiola Johnson PIANO MOVER Hypoxemia Neck pain 723.1 Active 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 [place]OVER Cervicalgia Vaginal discharge 623.5 Active Neeraj Collins [...] Generic Name NDC Status Provider Patient Instruction ABILIFY MAINTENA 400 MG IM SUSR 400mg injection every 28 days ARIPIPRAZOLE 92497093793 Active Silvia Wilian Casey LPN Active FLAGYL 500 MG TAB 1 tablet by mouth bid METRONIDAZOLE 00286576202 Active Olimpia Raida Active FLUTICASONE PROPIONATE 50 MCG/ACT SUSP 2 sprays each nostril daily before bed. FLUTICASONE PROPIONATE 53405125713 Active Fabiola Johnson APRN Active VERAPAMIL HCL ER 120 MG ORAL CR-TABS 1 tab po daily for blood pressure 09/27 VERAPAMIL HCL 14137780256 Active Fabiola Johnson APRN Active ADZENYS XR-ODT 6.3 MG ORAL TBED 1 tab po daily for ADHD AMPHETAMINE 64478269464 Active Fabiola Johnson APRN Active BENADRYL 25 MG CAP 4 po at bedtime for insomnia DIPHENHYDRAMINE HCL 83043672929 Active Fabiola Johnson APRN Active KLONOPIN 1 MG ORAL TABS 1 tab po TID CLONAZEPAM 84699252681 Active Fabiola Johnson APRN Active VALIUM 5 MG TAB Take 1-2 tablets daily DIAZEPAM 69602097014 No Longer Active Fabiola Johnson APRN Active METOPROLOL TARTRATE 25 MG ORAL TABS 1/2 tablet twice daily for heart rate and blood pressure METOPROLOL TARTRATE 89068983731 No Longer Active Fabiola Johnson APRN Active MIRALAX ORAL POWD 17GMS DAILY IN WATER POLYETHYLENE GLYCOL 3350 28277792464 Active Vishal Hui MD Active VIIBRYD 10 MG ORAL TABS Take 1 tablet once a day VILAZODONE HCL 48775962319 Active Ahmet Carbajal MD Active DICLOFENAC POTASSIUM TABS Take 1 tablet twice a day (pt. is not sure of the dose.) DICLOFENAC POTASSIUM TABS 19389430805 Active Ahmet Carbajal MD Active MIRALAX PACK 1 po qd PRN Constipation POLYETHYLENE GLYCOL 3350 03503441710 No Longer Active Ahmet Carbajal MD Active MINIPRESS 2 MG CAPS 4 cap po at night PRAZOSIN HCL 45915829034 No Longer Active Ahmet Carbajal MD Active PIROXICAM 20 MG CAPS 1 cap po qd PRN Pain PIROXICAM 95818833346 No Longer Active Ahmet Carbajal MD Active TRAMADOL HCL 50 MG TABS 1-2 po TID PRN Pain TRAMADOL HCL 89671526439 No Longer Active Ahmet Carbajal MD Active METOPROLOL TARTRATE 50 MG TAB 1 po bid METOPROLOL TARTRATE 63772804572 No Longer Active Ahmet Carbajal MD Active ABILIFY 15 MG ORAL TABS 1 tab daily ARIPIPRAZOLE 87837682404 No Longer Active Ahmet Carbajal MD Active PROZAC 20 MG ORAL CAPS 1 tab daily FLUOXETINE HCL 75528940713 No Longer Active Ahmet Carbajal MD Active AMBIEN 5 MG ORAL TABS 1 tab at bedtime ZOLPIDEM TARTRATE 50774690408 No Longer Active Ahmet Carbajal MD Active PREDNISONE 20 MG TAB 2 tabs daily for 4 days, 1 tab daily for 4 days, 1/2 tab daily for 4 days PREDNISONE 67620599025 No Longer Active Ahmet Carbajal MD Active KEFLEX 500 MG CAP 1 po TID x 10 days CEPHALEXIN 77050308547 No Longer Active Vishal Hui MD Active IMITREX 50 MG ORAL TABS 1/2 tab every 6 hours prn SUMATRIPTAN SUCCINATE 63257875385 Active 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 PIAN[employer] MOVER Active TOPAMAX 50 MG ORAL TABS 1 tab twice daily TOPIRAMATE 55246549306 Active Vishal Hui MD Active SAPHRIS 5 MG SUBL 1 po bid ASENAPINE MALEATE 18037204242 No Longer Active 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 PIANO MOVER Active LATUDA 80 MG TABS Take one by mouth daily LURASIDONE HCL 57344272190 No Longer Active 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 APRN Active AMLODIPINE BESYLATE 5 MG TABS 1 tablet by mouth daily AMLODIPINE BESYLATE 95972012211 No Longer Active 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 APRN Active AMITRIPTYLINE HCL 100 MG TAB one at hs AMITRIPTYLINE HCL 68049561046 No Longer Active Vishal Hui MD Active TRAZODONE HCL 100 MG TAB take 1 at bedtime TRAZODONE HCL 87796802490 No Longer Active Vishal Hui MD Active VYVANSE 40 MG CAPS 1 daily, LISDEXAMFETAMINE DIMESYLATE 61137091789 No Longer Active Vishal Hui MD Active IBUPROFEN 600 MG TAB 1 po TID PRN IBUPROFEN 64115479933 No Longer Active Vishal Hui MD Active PROZAC 20 MG CAP Take one by mouth daily FLUOXETINE HCL 33769321384 No Longer Active Vishal Hui MD Active ZOFRAN 4 MG TABS 1 po q6hr PRN Nausea ONDANSETRON HCL Active Vishal Hui MD Active BACTRIM DS 800-160 MG TABS 1 pill by mouth twice daily SULFAMETHOXAZOLE-TRIMETHOPRIM 10616108481 No Longer Active Sahara Rodriguez MD PhD Active DIFLUCAN 150 MG TAB 1 tablet by mouth daily FLUCONAZOLE 59968185858 No Longer Active Vishal Hui MD Active TIZANIDINE HCL 4 MG TABS 1 po q6hr PRN Muscle Spasm/Back Pain TIZANIDINE HCL 16346081804 Active Vishal Hui MD Active CLINDAMYCIN HCL 150 MG CAPS 1 four times a day CLINDAMYCIN HCL 21885875698 No Longer Active Neeraj Collins MD Active KEFLEX 500 MG ORAL CAPS 1 cap QID by mouth CEPHALEXIN 48117953205 No Longer Active Neeraj Collins MD Active DIFLUCAN 150 MG TABS 1 pill every other day x 2 doses FLUCONAZOLE 97899751410 No Longer Active Sahara Rodriguez MD PhD Active MELATONIN 3 MG CAPS 2 po q hs MELATONIN 65040381277 No Longer Active Sahara Rodriguez MD PhD Active MULTIVITAMINS CAPS Take one by mouth daily MULTIPLE VITAMIN 61766517118 No Longer Active Sahara Rodriguez MD PhD Active BACTRIM DS 800-160 MG TAB 1 tab by mouth twice daily TRIMETHOPRIM-SULFAMETHOXAZOLE 80190040603 No Longer Active Sahara Rodriguez MD PhD Active [facility] PROBIOTIC ORAL CHEW 2 daily po PROBIOTIC PRODUCT 23039964846 No Longer Active Sahara Rodriguez MD PhD Active BACTRIM DS 800-160 MG TABS 1 po BID x 7 days SULFAMETHOXAZOLE-TRIMETHOPRIM 88035119296 No Longer Active Vishal Hui MD Active CHANTIX STARTING MONTH EARNEST 0.5 MG X 11 & 1 MG X 42 TABS 0.5mg daily for 3 days , then 0.5mg BID for 4 days, then 1mg BID VARENICLINE TARTRATE 32180580421 No Longer Active TAMARA Gray Active VERAPAMIL HCL CR 120 MG TAB CR 1 po bid VERAPAMIL HCL 60539921246 No Longer Active Vishal Hui MD Active METOPROLOL SUCCINATE 50 MG TB24 1 tablet by mouth daily METOPROLOL SUCCINATE 14145021161 No Longer Active Vishal Hui MD Active SAPHRIS 10 MG SUBL 1 tab po bid ASENAPINE MALEATE 71941557801 No Longer Active Vishal Hui MD Active LISINOPRIL 20 MG TABS 1 tab po qd LISINOPRIL 26892106870 No Longer Active Vishal Hui MD Active LATUDA 20 MG TABS Take one by mouth daily LURASIDONE HCL 33128070957 No Longer Active Vishal Hui MD Active TRAZODONE HCL 50 MG TABS 1/2 tab po qd prn for anxiety TRAZODONE HCL 25234501781 No Longer Active Vishal Hui MD Active OMEPRAZOLE 20 MG TBEC 1 po q a.m. 30min prior to first food intake OMEPRAZOLE 00946707550 Active Vishal Hui MD Active RANITIDINE HCL 150 MG CAPS 1 twice a day RANITIDINE HCL 50108833684 Active Jillina Frazell PIANO MOVER Active LINZESS 290 MCG CAPS Take one by mouth daily LINACLOTIDE 35914567994 No Longer Active Vishal Hui MD Active SAPHRIS 5 MG SUBL 1 tab po qd ASENAPINE MALEATE 33512772716 No Longer Active Vishal Hui MD Active ZALEPLON 10 MG CAPS 1 cap po every other night ZALEPLON 01574023543 No Longer Active Vishal Hui MD Active LYRICA 50 MG CAPS 1 tab po TID PREGABALIN 46028205037 No Longer Active Vishal Hui MD Active LORATADINE 10 MG TABS 1 tab po qd LORATADINE 59659438099 No Longer Active Vishal Hui MD Active VERAPAMIL HCL ER 180 MG CR-TABS 1 tab po bid VERAPAMIL HCL 36263645304 No Longer Active Vishal Hui MD Active MIRALAX POWD 1 capfull once daily POLYETHYLENE GLYCOL 3350 35636275992 No Longer Active Vishal Hui MD Active PREDNISONE 20 MG TABS 1 tab po qd PREDNISONE 44463025398 No Longer Active Renzo Thornton DO Active LEVOFLOXACIN 500 MG TABS 1 tab po qd LEVOFLOXACIN 86887298137 No Longer Active Renzo Thornton DO Active BUSPIRONE HCL 15 MG TABS 1 tab po TID BUSPIRONE HCL 79324170169 No Longer Active Renzo Thornton DO Active BENZTROPINE MESYLATE 1 MG TABS 1 tab po qd BENZTROPINE MESYLATE 91907357574 No Longer Active Renzo Thornton DO Active ATENOLOL 25 MG TABS 1 tab po qd ATENOLOL 98544161158 No Longer Active Renzo Thornton DO Active ESCITALOPRAM OXALATE 20 MG TABS 1 tab po qd ESCITALOPRAM OXALATE 58920545476 No Longer Active Renzo Thornton DO Active ADVAIR DISKUS 250-50 MCG/DOSE AEPB 1 puff BID FLUTICASONE-SALMETEROL 93772266547 No Longer Active Renzo Thornton DO Active PREDNISONE 20 MG TAB 2 tabs daily for 3 days, 1 tab daily for 3 days, 1/2 tab daily for 2 days PREDNISONE 07596490179 No Longer Active Vishal Hui MD Active CEFDINIR 300 MG CAPS by mouth twice a day CEFDINIR 66074872707 No Longer Active Vishal Hui MD Active LANSOPRAZOLE 30 MG CPDR 1 cap po qd LANSOPRAZOLE 50545637019 No Longer Active Vishal Hui MD Active BACLOFEN 20 MG TABS 1 tab po tid BACLOFEN 24928673208 No Longer Active Vishal Hui MD Active ADVAIR DISKUS 250-50 MCG/DOSE AEPB 1 puff BID ADVAIR DISKUS 250-50 MCG/DOSE AEPB FLUTICASONE-SALMETEROL Inactive ESCITALOPRAM OXALATE 20 MG TABS 1 tab po qd ESCITALOPRAM OXALATE 20 MG TABS 054218 ESCITALOPRAM OXALATE Inactive ATENOLOL 25 MG TABS 1 tab po qd ATENOLOL 25 MG TABS 056453 ATENOLOL Inactive BENZTROPINE MESYLATE 1 MG TABS 1 tab po qd BENZTROPINE MESYLATE 1 MG TABS 974415 BENZTROPINE MESYLATE Inactive BUSPIRONE HCL 15 MG TABS 1 tab po TID BUSPIRONE HCL 15 MG TABS 723206 BUSPIRONE HCL Inactive LEVOFLOXACIN 500 MG TABS 1 tab po qd LEVOFLOXACIN 500 MG TABS 855280 LEVOFLOXACIN Inactive PREDNISONE 20 MG TABS 1 tab po qd PREDNISONE 20 MG TABS 925258 PREDNISONE Inactive MIRALAX POWD 1 capfull once daily MIRALAX POWD 015131 POLYETHYLENE GLYCOL 3350 Inactive VERAPAMIL HCL ER 180 MG CR-TABS 1 tab po bid VERAPAMIL HCL ER 180 MG CR-TABS VERAPAMIL HCL Inactive LORATADINE 10 MG TABS 1 tab po qd LORATADINE 10 MG TABS 421777 LORATADINE Inactive LYRICA 50 MG CAPS 1 tab po TID LYRICA 50 MG CAPS PREGABALIN Inactive ZALEPLON 10 MG CAPS 1 cap po every other night ZALEPLON 10 MG CAPS 201758 ZALEPLON Inactive SAPHRIS 5 MG SUBL 1 tab po qd SAPHRIS 5 MG SUBL ASENAPINE MALEATE Inactive TRAZODONE HCL 50 MG TABS 1/2 tab po qd prn for anxiety TRAZODONE HCL 50 MG TABS 214013 TRAZODONE HCL Inactive LATUDA 20 MG TABS Take one by mouth daily LATUDA 20 MG TABS LURASIDONE HCL Inactive LISINOPRIL 20 MG TABS 1 tab po qd LISINOPRIL 20 MG TABS 705598 LISINOPRIL Inactive SAPHRIS 10 MG SUBL 1 [...] twice daily BACTRIM DS 800-160 MG TAB 068988 TRIMETHOPRIM-SULFAMETHOXAZOLE Inactive MULTIVITAMINS CAPS Take one by mouth daily MULTIVITAMINS CAPS MULTIPLE VITAMIN Inactive MELATONIN 3 MG CAPS 2 po q hs MELATONIN 3 MG CAPS 042641 MELATONIN Inactive KEFLEX 500 MG ORAL CAPS 1 cap QID by mouth KEFLEX 500 MG ORAL CAPS 869230 CEPHALEXIN Inactive CLINDAMYCIN HCL 150 MG CAPS 1 four times a day CLINDAMYCIN HCL 150 MG CAPS 970819 CLINDAMYCIN HCL Inactive DIFLUCAN 150 MG TAB 1 tablet by mouth daily DIFLUCAN 150 MG TAB 293275 FLUCONAZOLE Inactive PROZAC 20 MG CAP Take one by mouth daily PROZAC 20 MG CAP 931627 FLUOXETINE HCL Inactive IBUPROFEN 600 MG TAB 1 po TID PRN IBUPROFEN 600 MG TAB 359390 IBUPROFEN Inactive VYVANSE 40 MG CAPS 1 daily, VYVANSE 40 MG CAPS LISDEXAMFETAMINE DIMESYLATE Inactive TRAZODONE HCL 100 MG TAB take 1 at bedtime TRAZODONE HCL 100 MG TAB 028651 TRAZODONE HCL Inactive AMITRIPTYLINE HCL 100 MG TAB one at hs AMITRIPTYLINE HCL 100 MG TAB 363765 AMITRIPTYLINE HCL Inactive AMLODIPINE BESYLATE 5 MG TABS 1 tablet by mouth daily AMLODIPINE BESYLATE 5 MG TABS 171166 AMLODIPINE BESYLATE Inactive LATUDA 80 MG TABS Take one by mouth daily LATUDA 80 MG TABS LURASIDONE HCL Inactive SAPHRIS 5 MG SUBL 1 po bid SAPHRIS 5 MG SUBL ASENAPINE MALEATE Inactive PREDNISONE 20 MG TAB 2 tabs daily for 4 days, 1 tab daily for 4 days, 1/2 tab daily for 4 days PREDNISONE 20 MG TAB 618690 PREDNISONE Inactive AMBIEN 5 MG ORAL TABS 1 tab at bedtime AMBIEN 5 MG ORAL TABS 121453 ZOLPIDEM TARTRATE Inactive PROZAC 20 MG ORAL CAPS 1 tab daily PROZAC 20 MG ORAL CAPS 982668 FLUOXETINE HCL Inactive ABILIFY 15 MG ORAL TABS 1 tab daily ABILIFY 15 MG ORAL TABS 194627 ARIPIPRAZOLE Inactive METOPROLOL TARTRATE 50 MG TAB 1 po bid METOPROLOL TARTRATE 50 MG TAB 207286 METOPROLOL TARTRATE Inactive TRAMADOL HCL 50 MG TABS 1-2 po TID PRN Pain TRAMADOL HCL 50 MG TABS 812609 TRAMADOL HCL Inactive PIROXICAM 20 MG CAPS 1 cap po qd PRN Pain PIROXICAM 20 MG CAPS 147736 PIROXICAM Inactive MINIPRESS 2 MG CAPS 4 cap po at night MINIPRESS 2 MG CAPS 054791 PRAZOSIN HCL Inactive MIRALAX PACK 1 po qd PRN Constipation MIRALAX PACK 958908 POLYETHYLENE GLYCOL 3350 Inactive METOPROLOL TARTRATE 25 MG ORAL TABS 1/2 tablet twice daily for heart rate and blood pressure METOPROLOL TARTRATE 25 MG ORAL TABS 195971 METOPROLOL TARTRATE Inactive VALIUM 5 MG TAB Take 1-2 tablets daily VALIUM 5 MG TAB 354401 DIAZEPAM Inactive CEFDINIR 300 MG CAPS by mouth twice a day CEFDINIR 300 MG CAPS 317996 CEFDINIR Inactive PREDNISONE 20 MG TAB 2 tabs daily for 3 days, 1 tab daily for 3 days, 1/2 tab daily for 2 days PREDNISONE 20 MG TAB 554281 PREDNISONE Inactive BACTRIM DS 800-160 MG TABS 1 po BID x 7 days BACTRIM DS 800-160 MG TABS 19820521 SULFAMETHOXAZOLE-TRIMETHOPRIM Inactive DIFLUCAN 150 MG TABS 1 pill every other day x 2 doses DIFLUCAN 150 MG TABS 841488 FLUCONAZOLE Inactive BACTRIM DS 800-160 MG TABS 1 pill by mouth twice daily BACTRIM DS 800-160 MG TABS 19820521 SULFAMETHOXAZOLE-TRIMETHOPRIM Inactive KEFLEX 500 MG CAP 1 po TID x 10 days KEFLEX 500 MG CAP 477832 CEPHALEXIN Inactive Advance Directives Directive Description Start Date DISCUSSED WITH PATIENT -- NO DECISION MADE Vital Signs Date Name Value Unit Range Description blood pressure, diastolic - 8462-4 83 mm[Hg] [...] % 11.6-14.8 platelet count 394 10^3/MM^3 10*3/mm3 484-920 7821/01/11 leukocyte count, blood 13.8 10^3/MM^3 10*3/mm3 4.6-10.2 [...] Panel - Chemistry sodium, serum 139 mmol/L 846-174 1701/12/03 carbon dioxide, venous blood 28.5 mmol/L 21.0-32.0 [...] 5.5 % 4.3-6.0 cholesterol, serum 159 mg/dL 047-821 8095/12/03 triglyceride, serum, fasting 118 mg/dL 30-200 HDL [...] Panel - Chemistry sodium, serum 139 mmol/L 023-148 1431/12/22 carbon dioxide, venous blood 26.8 mmol/L 21.0-32.0 potassium, serum 4.2 mmol/L 3.5-5.2 chloride, serum 103 mmol/L 98-107 blood glucose 115 mg/dL 65-110 urea nitrogen, blood 20 mg/dL 7-18 creatinine, serum 0.90 mg/dL 0.55-1.30 alanine aminotransferase (SGPT), serum 38 U/L aspartate aminotransferase (SGOT), serum 19 U/L 15-37 calcium, serum 8.6 mg/dL 8.5-10.1 bilirubin, serum, total 0.30 mg/dL 0.00-1.00 sodium, serum 139 mmol/L 655-604 3225/01/11 carbon dioxide, venous blood 26.6 mmol/L 21.0-32.0 potassium, serum 4.1 mmol/L 3.5-5.2 chloride, serum 100 mmol/L 98-107 blood glucose 86 mg/dL 65-110 urea nitrogen, blood 16 mg/dL 7-18 creatinine, serum 1.00 mg/dL 0.55-1.30 alanine aminotransferase (SGPT), serum 48 U/L -78 aspartate aminotransferase (SGOT), serum 17 U/L 15-37 calcium, serum 9.1 mg/dL 8.5-10.1 bilirubin, serum, total 0.40 mg/dL 0.00-1.00 sodium, serum 142 mmol/L 829-314 4347/06/08 carbon dioxide, venous blood 27.6 mmol/L 21.0-32.0 potassium, serum 4.0 mmol/L 3.5-5.2 chloride, serum 105 mmol/L 98-107 blood glucose 95 mg/dL 65-110 urea nitrogen, blood 8 mg/dL 7-18 creatinine, serum 0.75 mg/dL 0.55-1.30 alanine aminotransferase (SGPT), serum 49 U/L -78 aspartate aminotransferase (SGOT), serum 28 U/L 15-37 calcium, serum 9.4 mg/dL 8.5-10.1 bilirubin, serum, total 0.30 mg/dL 0.00-1.00 sodium, serum 140 mmol/L 777-032 2722/08/08 carbon dioxide, venous blood 33.7 mmol/L 21.0-32.0 [...] Rate - Chemistry sodium, serum 139 mmol/L 769-820 4720/12/11 carbon dioxide, venous blood 25.4 mmol/L 21.0-32.0 [...] mg/dL Encounters Code Encounter Date Provider Facility CPT-94013 Level 3 Est. Patient 14:27:52 CDT Neeraj Collins MD [facility] CPT-41367 Level 3 Est. Patient 08:56:03 CDT 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 [facility] CPT-67305 Level 4 Est. Patient 12:11:48 CDT Fabiola Johnson [facility] CPT-74516 Level 3 New Patient 16:53:37 CDT Albert Caldera MD [facility] CPT-15987 Level 3 Est. Patient 11:25:49 CDT Renzo Thornton DO [facility] CPT-92955 Level 3 Est. Patient 15:22:01 CDT Ahmet Carbajal MD [facility] CPT-78456 Level 4 Est. Patient 09:00:51 [employer]OP FORGER HELPER Vishal Hui MD [facility] CPT-20033 Level 3 Est. Patient 11:37:33 DROP FORGER HELPER Vishal Hui MD [facility] CPT-29034 Level 3 Est. Patient 08:41:09 DROP FORGER HELPER Vishal Hui MD [facility] CPT-70935 Level 4 Est. Patient 10:19:35 DROP FORGER HELPER Vishal Hui MD [facility] CPT-54217 Level 3 Est. Patient 13:35:45 CDT Vishal Hui MD [facility] CPT-38683 Level 4 Est. Patient 10:08:37 CDT Vishal Hui MD [facility] CPT-96202 Level 3 Est. Patient 11:22:10 CDT Vishal Hui MD [facility] CPT-18439 Level 3 Est. Patient 11:03:32 CDT Sahara Rodriguez MD PhD [facility] CPT-34685 Level 3 Est. Patient 09:41:35 CDT Vishal Hui MD [facility] CPT-64550 Level 3 Est. Patient 12:00:41 CDT Neeraj Collins MD [facility] CPT-84225 Level 3 Est. Patient 09:16:24 CDT Vishal Hui MD [facility] CPT-21745 Level 4 Est. Patient 13:59:09 CDT Neeraj Collins MD [facility] CPT-85717 Level 3 Est. Patient 15:19:43 CDT Renzo Thornton DO [facility] CPT-81556 Level 3 Est. Patient 18:10:26 CDT Sahara Rodriguez MD [facility]-51467 Level 3 Est. Patient 14:49:50 CDT Vishal Hui MD [facility] CPT-87297 Level 4 Est. Patient 18:41:46 CDT Neeraj Collins MD [facility] CPT-24828 Level 4 Est. Patient 09:18:38 DROP FORGER HELPER Vishal Hui MD [facility] CPT-34957 Level 3 Est. Patient 14:43:55 DROP FORGER HELPER Vishal Hui MD [facility] CPT-60266 Level 3 Est. Patient 15:26:33 DROP FORGER HELPER Sahara Rodriguez MD PhD [facility] CPT-96938 Level 3 Est. Patient 10:32:14 DROP FORGER HELPER Vishal Hui MD [facility] CPT-70482 Level 3 Est. Patient 15:12:52 DROP FORGER HELPER Vishal Hui MD [facility] CPT-10797 Level 4 Est. Patient 09:19:27 CDT Vishal Hui MD [facility] CPT-71731 Level 3 Est. Patient 15:53:00 CDT Renzo Thornton [facility] CPT-16637 Level 3 Est. Patient 15:50:30 CDT Renzo Thornton [facility] CPT-52024 Level 3 Est. Patient 16:55:24 CDT Vishal Hui MD [facility] Procedures Code Procedure Name Date Entry Date Standard Description CPT-70540 Abx/Therapy Injection 13:29:56 CDT CPT-33395 Abx/Therapy Injection 08:36:16 CDT CPT-23257 Wet Mount - LAB USE ONLY 17:44:58 CDT CPT-20733 UA w micro - LAB USE ONLY 17:44:58 CDT CPT-83023 CMP - LAB USE ONLY 17:44:58 CDT CPT-59894 Venipuncture Draw Fee 17:44:58 CDT CPT-53695 Cervical Min 4V - XRAY USE ONLY 09:01:40 CDT CPT-12859 Chest 2V Frontal and Lat - XRAY USE ONLY 11:06:31 CDT CPT-47135 EKG Trac and Interp - XRAY USE ONLY 11:31:43 CDT 08/26 CPT-J3420 Vitamin B12 1000mcg (Cyanocobalamin) 08:10:26 DROP FORGER HELPER 04/12 CPT-02792 Abx/Therapy Injection 08:10:26 DROP FORGER HELPER CPT-G0438 Initial Annual Wellness Exam 19:01:01 DROP FORGER HELPER CPT-J3420 Vitamin B12 1000mcg (Cyanocobalamin) 16:57:46 CDT 08/14 CPT-78766 Recombivax HB Injection Suspension 5 MCG/0.5ML 08:37:50 DROP FORGER HELPER CPT-59377 Immunization Single Admin 08:37:50 DROP FORGER HELPER CPT-J3420 Vitamin B12 1000mcg (Cyanocobalamin) 08:32:16 DROP FORGER HELPER 03/11 CPT-54380 Abx/Therapy Injection 08:32:16 DROP FORGER HELPER CPT-82242 Chest 2V Frontal and Lat 11:46:38 DROP FORGER HELPER CPT-93094 Venipuncture Draw Fee 09:12:45 DROP FORGER HELPER CPT-J3420 Vitamin B12 1000mcg (Cyanocobalamin) 08:50:15 DROP FORGER HELPER 02/08 CPT-77010 Abx/Therapy Injection 08:50:15 DROP FORGER HELPER CPT-Cryo Cryotherapy 10:19:35 DROP FORGER HELPER CPT-000 Give Appropriate Flu Vaccine 09:22:16 CDT CPT-J3420 Vitamin B12 1000mcg (Cyanocobalamin) 19:08:57 CDT 01/11 CPT-84102 Abx/Therapy Injection 19:08:57 CDT CPT-J3420 Vitamin B12 1000mcg (Cyanocobalamin) 08:19:08 CDT 12/11 CPT-49218 Abx/Therapy Injection 08:19:08 CDT CPT-J3420 Vitamin B12 1000mcg (Cyanocobalamin) 14:48:00 CDT 11/09 CPT-45352 Abx/Therapy Injection 14:47:59 CDT CPT-J3420 Vitamin B12 1000mcg (Cyanocobalamin) 08:34:04 CDT 10/09 CPT-93025 Abx/Therapy Injection 08:34:04 CDT CPT-J3420 Vitamin B12 1000mcg (Cyanocobalamin) 09:18:52 CDT 09/11 CPT-58045 Abx/Therapy Injection 09:18:52 CDT CPT-J3420 Vitamin B12 1000mcg (Cyanocobalamin) 08:35:44 CDT 09/04 CPT-76516 Abx/Therapy Injection 08:35:44 CDT CPT-63499 Immunization Single Admin 11:07:16 CDT CPT-01306 Hepatitis B adult IM 11:07:16 CDT CPT-J3420 Vitamin B12 1000mcg (Cyanocobalamin) 11:00:49 CDT 08/28 CPT-J1040 Depo Medrol 80 mg (Methyl Prednisolone Acetate) 11:00: 49 CDT CPT-19087 Abx/Therapy Injection 11:00:49 CDT CPT-J1040 Depo Medrol 80 mg (Methyl Prednisolone Acetate) 09:16: 23 CDT CPT-J3420 Vitamin B12 1000mcg (Cyanocobalamin) 08:27:05 CDT 08/20 CPT-98477 Abx/Therapy Injection 08:27:05 CDT CPT-66414 Recombivax HB Injection Suspension 5 MCG/0.5ML 10:00:41 CDT CPT-39190 Administration single or combination vaccine inc oral 10 :00:41 CDT CPT-20789 Sono transvag pelvis non OB uterus ovaries cervix 16:36: 57 CDT CPT-21557 LS spine comp w obliq 09:50:55 DROP FORGER HELPER CPT-29750 Abd compl w upright 09:50:55 DROP FORGER HELPER CPT-J1100 Decadron 4mg (Dexamethasone) 15:51:24 DROP FORGER HELPER CPT-J1030 Depo Medrol 40 mg (Methyl Prednisolone Acetate) 15:51: 24 DROP FORGER HELPER CPT-45047 Abx/Therapy Injection 15:51:24 DROP FORGER HELPER CPT-J1100 Decadron 4mg (Dexamethasone) 15:26:33 DROP FORGER HELPER CPT-J1030 Depo Medrol 40 mg (Methyl Prednisolone Acetate) 15:26: 33 DROP FORGER HELPER CPT-65639 Sono retroperitoneal complete kidneys and bladder 17:15: 30 CDT CPT-01228 Abd compl w upright 16:09:25 CDT CPT-J1100 Decadron 8mg (Dexamethasone) 17:07:57 CDT CPT-84271 Abx/Therapy Injection 17:07:57 CDT CPT-J1100 Decadron 8mg (Dexamethasone) 16:55:24 CDT CPT-08772 Chest 2V Frontal and Lat 16:32:44 CDT
--- OUTSIDE RECORDS SUMMARY | 2016-11-04 12:06 | XMS REPORT | Clinical Summary ---
Author Author Admin, E Organization [employer] Address Unknown Phone Unavailable Allergies, Adverse Reactions, [...] Rodriguez MD PhD Vaginitis and vulvovaginitis, unspecified Pneumonia, organism unspecified ICD-486 Inactive Vishal Hui MD Flank pain, right ICD-789.09 Inactive Vishal Hui MD Abdominal pain ICD-789.00 Inactive Vishal Hui MD Cellulitis ICD-682.9 Inactive Vishal Hui MD Pelvic pain ICD-625.9 Inactive Vishal Hui MD Abscess, skin ICD-682.9 Inactive Vishal Hui MD Medication List Medication Instructions Start Date Stop Date Generic Name NDC Status Provider Patient Instruction DIFLUCAN 150 MG TABS 1 pill every other day x 2 doses FLUCONAZOLE 42880387175 Active Sahara Rodriguez MD PhD Active MELATONIN 3 MG CAPS 2 po q hs MELATONIN 23630456009 No Longer Active Sahara Rodriguez MD PhD Active MULTIVITAMINS CAPS Take one by mouth daily MULTIPLE VITAMIN 56106511680 No Longer Active Sahara Rodriguez MD PhD Active BACTRIM DS 800-160 MG TAB 1 tab by mouth twice daily TRIMETHOPRIM-SULFAMETHOXAZOLE 91452331733 No Longer Active Sahara Rodriguez MD PhD Active [facility] PROBIOTIC ORAL CHEW 2 daily po PROBIOTIC PRODUCT 62743492980 No Longer Active Sahara Rodriguez MD PhD Active IBUPROFEN 600 MG TAB 1 po TID PRN IBUPROFEN 71799808745 Active 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 INSURANCE SALES SPECIALIST Active BACTRIM DS 800-160 MG TABS 1 po BID x 7 days SULFAMETHOXAZOLE-TRIMETHOPRIM 51493177058 No Longer Active Vishal Hui MD Active CHANTIX STARTING MONTH EARNEST 0.5 MG X 11 & 1 MG X 42 TABS 0.5mg daily for 3 days , then 0.5mg BID for 4 days, then 1mg BID VARENICLINE TARTRATE 22259739459 No Longer Active TAMARA Gray Active METOPROLOL TARTRATE 50 MG TAB 1 po bid METOPROLOL TARTRATE 84102490219 Active Vishal Hui MD Active TRAZODONE HCL 100 MG TAB take 1 at bedtime TRAZODONE HCL 62469923874 Active Vishal Hui MD Active AMLODIPINE BESYLATE 5 MG TABS 1 tablet by mouth daily AMLODIPINE BESYLATE 00551436573 Active Vishal Hui MD Active VERAPAMIL HCL CR 120 MG TAB CR 1 po bid VERAPAMIL HCL 63476999165 No Longer Active Vishal Hui MD Active METOPROLOL SUCCINATE 50 MG TB24 1 tablet by mouth daily METOPROLOL SUCCINATE 67957640964 No Longer Active Vishal Hui MD Active TRAMADOL HCL 50 MG TABS 1-2 po TID PRN Pain TRAMADOL HCL 97448415898 Active Vishal Hui MD Active SAPHRIS 5 MG SUBL 1 po bid ASENAPINE MALEATE 29382972797 Active Vishal Hui MD Active SAPHRIS 10 MG SUBL 1 tab po bid ASENAPINE MALEATE 76388188017 No Longer Active Vishal Hui MD Active LISINOPRIL 20 MG TABS 1 tab po qd LISINOPRIL 72286179746 No Longer Active Vishal Hui MD Active BENADRYL 25 MG CAP 2 po tid prn anxiety DIPHENHYDRAMINE HCL 63756599377 Active Vishal Hui MD Active LATUDA 80 MG TABS Take one by mouth daily LURASIDONE HCL 62105048481 Active Vishal Hui MD Active LATUDA 20 MG TABS Take one by mouth daily LURASIDONE HCL 71092053197 No Longer Active Vishal Hui MD Active TRAZODONE HCL 50 MG TABS 1/2 tab po qd prn for anxiety TRAZODONE HCL 21633602770 No Longer Active Vishal Hui MD Active PIROXICAM 20 MG CAPS 1 cap po qd PRN Pain PIROXICAM 76821997052 Active Vishal Hui MD Active OMEPRAZOLE 20 MG TBEC 1 po q a.m. 30min prior to first food intake OMEPRAZOLE 34866037242 Active Vishal Hui MD Active RANITIDINE HCL 150 MG CAPS 1 twice a day RANITIDINE HCL 37633561017 Active Vishal Hui MD Active PROZAC 20 MG CAP Take one by mouth daily FLUOXETINE HCL 84838594292 Active Vishal Hui MD Active LINZESS 290 MCG CAPS Take one by mouth daily LINACLOTIDE 32604973529 Active Vishal Hui MD Active SAPHRIS 5 MG SUBL 1 tab po qd ASENAPINE MALEATE 16310872169 No Longer Active Vishal Hui MD Active ZALEPLON 10 MG CAPS 1 cap po every other night ZALEPLON 12395828008 No Longer Active Vishal Hui MD Active LYRICA 50 MG CAPS 1 tab po TID PREGABALIN 67489814360 No Longer Active Vishal Hui MD Active LORATADINE 10 MG TABS 1 tab po qd LORATADINE 72598444804 No Longer Active Vishal Hui MD Active VERAPAMIL HCL ER 180 MG CR-TABS 1 tab po bid VERAPAMIL HCL 44662718426 No Longer Active Vishal Hui MD Active MIRALAX POWD 1 capfull once daily POLYETHYLENE GLYCOL 3350 45355113799 No Longer Active Vishal Hui MD Active PREDNISONE 20 MG TABS 1 tab po qd PREDNISONE 21450679117 No Longer Active Renzo Thornton DO Active LEVOFLOXACIN 500 MG TABS 1 tab po qd LEVOFLOXACIN 83537840244 No Longer Active Renzo Thornton DO Active BUSPIRONE HCL 15 MG TABS 1 tab po TID BUSPIRONE HCL 02732211516 No Longer Active Renzo Thornton DO Active BENZTROPINE MESYLATE 1 MG TABS 1 tab po qd BENZTROPINE MESYLATE 73744194304 No Longer Active Renzo Thornton DO Active ATENOLOL 25 MG TABS 1 tab po qd ATENOLOL 04804507256 No Longer Active Renzo Thornton DO Active ESCITALOPRAM OXALATE 20 MG TABS 1 tab po qd ESCITALOPRAM OXALATE 12631215120 No Longer Active Renzo Thornton DO Active ADVAIR DISKUS 250-50 MCG/DOSE AEPB 1 puff BID FLUTICASONE-SALMETEROL 77430950806 No Longer Active Renzo Thornton DO Active PREDNISONE 20 MG TAB 2 tabs daily for 3 days, 1 tab daily for 3 days, 1/2 tab daily for 2 days PREDNISONE 35800827811 No Longer Active Vishal Hui MD Active CEFDINIR 300 MG CAPS by mouth twice a day CEFDINIR 40546038067 No Longer Active Vishal Hui MD Active LANSOPRAZOLE 30 MG CPDR 1 cap po qd LANSOPRAZOLE 23210918021 No Longer Active Vishal Hui MD Active TOPAMAX 25 MG TABS 1 tab po bid TOPIRAMATE 47957223765 Active Vishal Hui MD Active MINIPRESS 2 MG CAPS 1 cap po at night PRAZOSIN HCL 97168443518 Active Vishal Hui MD Active BACLOFEN 20 MG TABS 1 tab po tid BACLOFEN 02528119018 Active Vishal Hui MD Active ADVAIR DISKUS 250-50 MCG/DOSE AEPB 1 puff BID ADVAIR DISKUS 250-50 MCG/DOSE AEPB FLUTICASONE-SALMETEROL Inactive ESCITALOPRAM OXALATE 20 MG TABS 1 tab po qd ESCITALOPRAM OXALATE 20 MG TABS 479496 ESCITALOPRAM OXALATE Inactive ATENOLOL 25 MG TABS 1 tab po qd ATENOLOL 25 MG TABS 000686 ATENOLOL Inactive BENZTROPINE MESYLATE 1 MG TABS 1 tab po qd BENZTROPINE MESYLATE 1 MG TABS 305670 BENZTROPINE MESYLATE Inactive BUSPIRONE HCL 15 MG TABS 1 tab po TID BUSPIRONE HCL 15 MG TABS 729281 BUSPIRONE HCL Inactive LEVOFLOXACIN 500 MG TABS 1 tab po qd LEVOFLOXACIN 500 MG TABS 934821 LEVOFLOXACIN Inactive PREDNISONE 20 MG TABS 1 tab po qd PREDNISONE 20 MG TABS 071270 PREDNISONE Inactive MIRALAX POWD 1 capfull once daily MIRALAX POWD 758137 POLYETHYLENE GLYCOL 3350 Inactive VERAPAMIL HCL ER 180 MG CR-TABS 1 tab po bid VERAPAMIL HCL ER 180 MG CR-TABS VERAPAMIL HCL Inactive LORATADINE 10 MG TABS 1 tab po qd LORATADINE 10 MG TABS 800200 LORATADINE Inactive LYRICA 50 MG CAPS 1 tab po TID LYRICA 50 MG CAPS PREGABALIN Inactive ZALEPLON 10 MG CAPS 1 cap po every other night ZALEPLON 10 MG CAPS 710571 ZALEPLON Inactive SAPHRIS 5 MG SUBL 1 tab po qd SAPHRIS 5 MG SUBL ASENAPINE MALEATE Inactive TRAZODONE HCL 50 MG TABS 1/2 tab po qd prn for anxiety TRAZODONE HCL 50 MG TABS 600794 TRAZODONE HCL Inactive LATUDA 20 MG TABS Take one by mouth daily LATUDA 20 MG TABS LURASIDONE HCL Inactive LISINOPRIL 20 MG TABS 1 tab po qd LISINOPRIL 20 MG TABS 137761 LISINOPRIL Inactive SAPHRIS 10 MG SUBL 1 [...] for 2 days PREDNISONE 20 MG TAB 799802 PREDNISONE Inactive BACTRIM DS 800-160 MG TABS [...] Panel - Chemistry sodium, serum 141 mmol/L [phone] potassium, serum 4.3 mmol/L 3.5-5.2 chloride, serum [...] Panel - Chemistry sodium, serum 139 mmol/L 794-843 9262/12/31 potassium, serum 4.8 mmol/L 3.5-5.2 chloride, serum 106 mmol/L 98-107 carbon dioxide, venous blood 24.3 mmol/L 21.0-32.0 blood glucose 90 mg/dL 65-110 urea nitrogen, blood 16 mg/dL 7-18 creatinine, serum 1.00 mg/dL 0.60-1.30 alanine aminotransferase (SGPT), serum 41 U/L 12-78 aspartate aminotransferase (SGOT), serum 17 U/L 15-37 calcium, serum 8.6 mg/dL 8.5-10.1 bilirubin, serum, total 0.30 mg/dL 0.00-1.00 cholesterol, serum 108 mg/dL 987-001 3686/12/31 triglyceride, serum, fasting 120 mg/dL 30-200 HDL [...] Negative Negative Lab Report: UADIP W/MICRO, AUTO, UHCG - Chemistry protein, total urine random Negative mg/dL Negative RBC, urine, dipstick Negative Negative human chorionic gonadotropin, urine, qualitative (urine test) Negative Negative Lab Report: UADIP W/MICRO, AUTO, UHCG - Urinalysis urobilinogen, urine, semiquantitative (dipstick) 0.2 Normal leukocyte esterase, urine, by dipstick Negative Negative nitrite, urine, semiquantitative Negative Negative glucose, urine, semiquantitative Negative Negative ketones, urine, by test strip Negative Negative bilirubin, urine Negative Negative urine color Yellow Colorless;Lightyellow;Straw;Yellow appearance, urine Clear Clear specific gravity, urine 1.025 1.000-1.030 pH, urine, semiquantitative 7.0 5.0-8.5 Lab Report: Varicella-Zoater Inga IgG,IgM/02141, HEP Be Antibody/556, RUB ... - Serology rubella antibody, serum, IgG 2.88 Encounters Code Encounter Date Provider Facility [facility]-[id number] Level 3 Est. Patient 18:10:26 CDT Sahara Rodriguez MD PhD [facility]95328 Level 3 Est. Patient 14:49:50 CDT Vishal Hui MD [facility]-58247 Level 4 Est. Patient 18:41:46 CDT Neeraj Collins MD [facility]-44208 Level 4 Est. Patient 09:18:38 WIRE TURNING MACHINE OPERATOR Vishal Hui MD [facility]-37024 Level 3 Est. Patient 14:43:55 WIRE TURNING MACHINE OPERATOR Vishal Hui MD [facility]-02999 Level 3 Est. Patient 15:26:33 WIRE TURNING MACHINE OPERATOR Sahara Rodriguez MD PhD [facility]08525 Level 3 Est. Patient 10:32:14 WIRE TURNING MACHINE OPERATOR Vishal Hui MD [facility]-82212 Level 3 Est. Patient 15:12:52 WIRE TURNING MACHINE OPERATOR Vishal Hui MD [facility]-85630 Level 4 Est. Patient 09:19:27 CDT Vishal Hui MD [facility]-50407 Level 3 Est. Patient 15:53:00 CDT Renzo Thornton [facility] CPT-03428 Level 3 Est. Patient 15:50:30 CDT Renzo Thornton [facility] CPT-19984 Level 3 Est. Patient 16:55:24 CDT Vishal Hui MD [facility] Procedures Code Procedure Name Date Entry Date Standard Description CPT-11928 Recombivax HB Injection Suspension 5 MCG/0.5ML 10:00:41 CDT CPT-92676 Administration single or combination vaccine inc oral 10 :00:41 CDT CPT-11073 Sono transvag pelvis non OB uterus ovaries cervix 16:36: 57 CDT CPT-80839 LS spine comp w obliq 09:50:55 WIRE TURNING MACHINE OPERATOR CPT-36207 Abd compl w upright 09:50:55 WIRE TURNING MACHINE OPERATOR CPT-J1100 Decadron 4mg (Dexamethasone) 15:51:24 WIRE TURNING MACHINE OPERATOR CPT-J1030 Depo Medrol 40 mg (Methyl Prednisolone Acetate) 15:51: 24 WIRE TURNING MACHINE OPERATOR CPT-07759 Abx/Therapy Injection 15:51:24 WIRE TURNING MACHINE OPERATOR CPT-J1100 Decadron 4mg (Dexamethasone) 15:26:33 WIRE TURNING MACHINE OPERATOR CPT-J1030 Depo Medrol 40 mg (Methyl Prednisolone Acetate) 15:26: 33 WIRE TURNING MACHINE OPERATOR CPT-93133 Sono retroperitoneal complete kidneys and bladder 17:15: 30 CDT CPT-11715 Abd compl w upright 16:09:25 CDT CPT-J1100 Decadron 8mg (Dexamethasone) 17:07:57 CDT CPT-49657 Abx/Therapy Injection 17:07:57 CDT CPT-J1100 Decadron 8mg (Dexamethasone) 16:55:24 CDT CPT-27217 Chest 2V Frontal and Lat 16:32:44 CDT
--- OUTSIDE RECORDS SUMMARY | 2016-11-04 12:07 | XMS REPORT ---
Author Author [facility] Medical Staff Organization [facility] Address [address] [place], [place] [address] Phone [phone] Care Team Providers Care General Medical Practitioner Name Role Phone TINO ABRAMS MD PP [phone] Summary purpose TRANSITION OF CARE AUTO GENERATION Chief Complaint and Reason for Visit Admit Diagnosis 1 CELLULITIS OF TRUNK Problem list No authorized problems tracked for [...] Fanapt Drug Allergy Iloperidone Confirmed or Verified Immunizations No immunizations recorded for this patient visit Relevant diagnostic tests and/or laboratory data RESULTS Therapeutic Drug Monitoring 01-85-567086:44:00 Result Normal Range Units Vancomycin Trough 16.5 10-22 ug/ml History of procedures Procedure Code Code Type Description Date Performed Performing Physician J7040 CPT-4 NORMAL SALINE SOLUTION INFUS 10-26-2014 TINO ABRAMS J3370 CPT-4 VANCOMYCIN HCL INJECTION 10-26-2014 TINO ABRAMS 60932 CPT-4 THER/PROPH/DIAG IV INF, INIT 10-26-2014 TINO ABRAMS 82165 CPT-4 THER/PROPH/DIAG IV INF ADDON 10-26-2014 TINO ABRAMS 11308 CPT-4 THER/PROPH/DIAG IV INF, INIT 10-26-2014 TINO ABRAMS 53498 CPT-4 THER/PROPH/DIAG IV INF ADDON 10-26-2014 TINO ABRAMS 33432 CPT-4 ASSAY OF VANCOMYCIN 10-27-2014 TINO ABRAMS J7040 CPT-4 NORMAL SALINE SOLUTION INFUS 10-27-2014 TINO ABRAMS J3370 CPT-4 VANCOMYCIN HCL INJECTION 10-27-2014 TINO ABRAMS 91619 CPT-4 ROUTINE VENIPUNCTURE 10-27-2014 TINO ABRAMS 59845 CPT-4 THER/PROPH/DIAG IV INF, INIT 10-27-2014 TINO ABRAMS 24195 CPT-4 THER/PROPH/DIAG IV INF ADDON 10-27-2014 TINO ABRAMS 17816 CPT-4 THER/PROPH/DIAG IV INF, INIT 10-27-2014 TINO ABRAMS 00556 CPT-4 THER/PROPH/DIAG IV INF ADDON 10-27-2014 TINO ABRAMS Functional status Functional Status Finding Observation Time Hearing Prob Loc none :04 Vision Problems yes :04 Vision Correct Dev glasses :04 Ambulation Asst Dev none :04 Bathing Assistance none :04 Eating Assistance none :04 Dressing Assistance none :04 Toileting Assistance none :04 Transfer Assistance none :04 Decline Slf Care/Mob no :04 Phys Cond Stable yes :04 Oxygen no :00 Oxygen Flow Rate RA :30 IV Site Location Right forearm :03 IV Type peripheral :03 IV Site Information discontinued :03 IV Site Start Attmpt 1 times [id number]:35 IV Site Festus 20 :40 IV Site Appearance WNL :40 IV Site Color clear :40 IV Site Patent yes :40 Dressing Type occlusive :40 Nursing Note Patient left after finishing infusion at this time. She tolerated the infusion well and her IV site was discontinued once it was completed. Her vital signs were stable and she denied questions or concerns. She said her followup appointment is already scheduled for with Dr. Abrams. : 00 Cognitive Status Finding Observation Time Oriented To Date 5 Yes :[address] 5 Yes :04 Name 3 Objects 3 Yes : Name Object in Rm 2 Yes :04 Recall 3 Objects 3 Yes : Repeats a Phrase 1 Yes : Follows Verbal Direc 3 Yes : Follows Written Dire 1 Yes : Write a Sentance 1 Yes : Draw an Object 1 Yes :04 Mini Mental Total 25 points :04 Learning Ability comprehends well : Neurological no :11 Psychological yes : Physical no :11 Hearing no :11 Rod Mill Tender Needed no :11 Sign Language no :11 Emotional no :11 Vision no :11 Laguage no :11 Financial no :11 Vital signs Type Value Date Respiration Rate 18breaths per minute : Pulse 68beats per minute : Oxygen Saturation 100% :00 BP Systolic 115mmHg :00 BP Diastolic 64mmHg :00 Temperature 97.0F :00 Height 65inches :56 Weight 274LB :56 Social history Type Value Smoking Status FORMER SMOKER Treatment Plan No treatment plan text is available for this visit. Hospital discharge instructions Valuables yes Valuable Type cell phone PNE Vac unsure Flu Vac 2014 Tetanus Vac unknown
--- OUTSIDE RECORDS SUMMARY | 2016-11-04 12:07 | XMS REPORT | Clinical Summary ---
Author Author Admin, E Organization [facility] [employer] Address Unknown Phone Unavailable Allergies, Adverse Reactions, [...] unspecified Pneumonia, organism unspecified ICD-486 Inactive Vishal uHi MD Flank pain, right ICD-789.09 Inactive Vishal [...] every other day x 2 doses FLUCONAZOLE 09817994551 Active Sahara Rodriguez MD PhD Active MELATONIN 3 MG CAPS 2 po q hs MELATONIN 41785272005 No Longer Active Sahara Rodriguez MD PhD Active MULTIVITAMINS CAPS Take one by mouth daily MULTIPLE VITAMIN 69908469029 No Longer Active Sahara Rodriguez MD PhD Active BACTRIM DS 800-160 MG TAB 1 tab by mouth twice daily TRIMETHOPRIM-SULFAMETHOXAZOLE 74079098119 No Longer Active Sahara Rodriguez MD PhD Active [facility] PROBIOTIC ORAL CHEW 2 daily po PROBIOTIC PRODUCT 82748863427 No Longer Active Sahara Rodriguez MD PhD Active IBUPROFEN 600 MG TAB 1 po TID PRN IBUPROFEN 77216854524 Active 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 INSTALLATION & MAINTENANCE EXECUTIVE Active BACTRIM DS 800-160 MG TABS 1 po BID x 7 days SULFAMETHOXAZOLE-TRIMETHOPRIM 15434769341 No Longer Active Vishal Hui MD Active CHANTIX STARTING MONTH EARNEST 0.5 MG X 11 & 1 MG X 42 TABS 0.5mg daily for 3 days , then 0.5mg BID for 4 days, then 1mg BID VARENICLINE TARTRATE 30987684461 No Longer Active TAMARA Gray Active METOPROLOL TARTRATE 50 MG TAB 1 po bid METOPROLOL TARTRATE 49259756786 Active Vishal Hui MD Active TRAZODONE HCL 100 MG TAB take 1 at bedtime TRAZODONE HCL 01787717576 Active Vishal Hui MD Active AMLODIPINE BESYLATE 5 MG TABS 1 tablet by mouth daily AMLODIPINE BESYLATE 12191511132 Active Vishal Hui MD Active VERAPAMIL HCL CR 120 MG TAB CR 1 po bid VERAPAMIL HCL 62451797517 No Longer Active Vishal Hui MD Active METOPROLOL SUCCINATE 50 MG TB24 1 tablet by mouth daily METOPROLOL SUCCINATE 94180653608 No Longer Active Vishal Hui MD Active TRAMADOL HCL 50 MG TABS 1-2 po TID PRN Pain TRAMADOL HCL 99576165154 Active Vishal Hui MD Active SAPHRIS 5 MG SUBL 1 po bid ASENAPINE MALEATE 99312723602 Active Vishal Hui MD Active SAPHRIS 10 MG SUBL 1 tab po bid ASENAPINE MALEATE 90495717478 No Longer Active Vishal Hui MD Active LISINOPRIL 20 MG TABS 1 tab po qd LISINOPRIL 43191371837 No Longer Active Vishal Hui MD Active BENADRYL 25 MG CAP 2 po tid prn anxiety DIPHENHYDRAMINE HCL 20404207953 Active Vishal Hui MD Active LATUDA 80 MG TABS Take one by mouth daily LURASIDONE HCL 58790831988 Active Vishal Hui MD Active LATUDA 20 MG TABS Take one by mouth daily LURASIDONE HCL 05634376945 No Longer Active Vishal Hui MD Active TRAZODONE HCL 50 MG TABS 1/2 tab po qd prn for anxiety TRAZODONE HCL 43809334528 No Longer Active Vishal Hui MD Active PIROXICAM 20 MG CAPS 1 cap po qd PRN Pain PIROXICAM 94436729037 Active Vishal Hui MD Active OMEPRAZOLE 20 MG TBEC 1 po q a.m. 30min prior to first food intake OMEPRAZOLE 49758634045 Active Vishal Hui MD Active RANITIDINE HCL 150 MG CAPS 1 twice a day RANITIDINE HCL 25889583610 Active Vishal Hui MD Active PROZAC 20 MG CAP Take one by mouth daily FLUOXETINE HCL 38484864298 Active Vishal Hui MD Active LINZESS 290 MCG CAPS Take one by mouth daily LINACLOTIDE 17289919756 Active Vishal Hui MD Active SAPHRIS 5 MG SUBL 1 tab po qd ASENAPINE MALEATE 53860029301 No Longer Active Vishal Hui MD Active ZALEPLON 10 MG CAPS 1 cap po every other night ZALEPLON 97160772341 No Longer Active Vishal Hui MD Active LYRICA 50 MG CAPS 1 tab po TID PREGABALIN 75386318104 No Longer Active Vishal Hui MD Active LORATADINE 10 MG TABS 1 tab po qd LORATADINE 53410552875 No Longer Active Vishal Hui MD Active VERAPAMIL HCL ER 180 MG CR-TABS 1 tab po bid VERAPAMIL HCL 67368556425 No Longer Active Vishal uHi MD Active MIRALAX POWD 1 capfull once daily POLYETHYLENE GLYCOL 3350 14846560433 No Longer Active Vishal Hui MD Active PREDNISONE 20 MG TABS 1 tab po qd PREDNISONE 25880541306 No Longer Active Renzo Thornton DO Active LEVOFLOXACIN 500 MG TABS 1 tab po qd LEVOFLOXACIN 40721408627 No Longer Active Renzo Thornton DO Active BUSPIRONE HCL 15 MG TABS 1 tab po TID BUSPIRONE HCL 21496304459 No Longer Active Renzo Thornton DO Active BENZTROPINE MESYLATE 1 MG TABS 1 tab po qd BENZTROPINE MESYLATE 49385943791 No Longer Active Renzo Thornton DO Active ATENOLOL 25 MG TABS 1 tab po qd ATENOLOL 53654153049 No Longer Active Renzo Thornton DO Active ESCITALOPRAM OXALATE 20 MG TABS 1 tab po qd ESCITALOPRAM OXALATE 37365231956 No Longer Active Renzo Thornton DO Active ADVAIR DISKUS 250-50 MCG/DOSE AEPB 1 puff BID FLUTICASONE-SALMETEROL 92601330120 No Longer Active Renzo Thornton DO Active PREDNISONE 20 MG TAB 2 tabs daily for 3 days, 1 tab daily for 3 days, 1/2 tab daily for 2 days PREDNISONE 75383746892 No Longer Active Vishal Hui MD Active CEFDINIR 300 MG CAPS by mouth twice a day CEFDINIR 25963567467 No Longer Active Vishal Hui MD Active LANSOPRAZOLE 30 MG CPDR 1 cap po qd LANSOPRAZOLE 97793231889 No Longer Active Vishal Hui MD Active TOPAMAX 25 MG TABS 1 tab po bid TOPIRAMATE 90737100618 Active Vishal Hui MD Active MINIPRESS 2 MG CAPS 1 cap po at night PRAZOSIN HCL 07806669217 Active Vishal Hui MD Active BACLOFEN 20 MG TABS 1 tab po tid BACLOFEN 04111974978 Active Vishal Hui MD Active ADVAIR DISKUS 250-50 MCG/DOSE AEPB 1 puff BID ADVAIR DISKUS 250-50 MCG/DOSE AEPB FLUTICASONE-SALMETEROL Inactive ESCITALOPRAM OXALATE 20 MG TABS 1 tab po qd ESCITALOPRAM OXALATE 20 MG TABS 449831 ESCITALOPRAM OXALATE Inactive ATENOLOL 25 MG TABS 1 tab po qd ATENOLOL 25 MG TABS 545494 ATENOLOL Inactive BENZTROPINE MESYLATE 1 MG TABS 1 tab po qd BENZTROPINE MESYLATE 1 MG TABS 306020 BENZTROPINE MESYLATE Inactive BUSPIRONE HCL 15 MG TABS 1 tab po TID BUSPIRONE HCL 15 MG TABS 856777 BUSPIRONE HCL Inactive LEVOFLOXACIN 500 MG TABS 1 tab po qd LEVOFLOXACIN 500 MG TABS 866148 LEVOFLOXACIN Inactive PREDNISONE 20 MG TABS 1 tab po qd PREDNISONE 20 MG TABS 154695 PREDNISONE Inactive MIRALAX POWD 1 capfull once daily MIRALAX POWD 922705 POLYETHYLENE GLYCOL 3350 Inactive VERAPAMIL HCL ER 180 MG CR-TABS 1 tab po bid VERAPAMIL HCL ER 180 MG CR-TABS VERAPAMIL HCL Inactive LORATADINE 10 MG TABS 1 tab po qd LORATADINE 10 MG TABS 307109 LORATADINE Inactive LYRICA 50 MG CAPS 1 tab po TID LYRICA 50 MG CAPS PREGABALIN Inactive ZALEPLON 10 MG CAPS 1 cap po every other night ZALEPLON 10 MG CAPS 347044 ZALEPLON Inactive SAPHRIS 5 MG SUBL 1 tab po qd SAPHRIS 5 MG SUBL ASENAPINE MALEATE Inactive TRAZODONE HCL 50 MG TABS 1/2 tab po qd prn for anxiety TRAZODONE HCL 50 MG TABS 518985 TRAZODONE HCL Inactive LATUDA 20 MG TABS Take one by mouth daily LATUDA 20 MG TABS LURASIDONE HCL Inactive LISINOPRIL 20 MG TABS 1 tab po qd LISINOPRIL 20 MG TABS 676731 LISINOPRIL Inactive SAPHRIS 10 MG SUBL 1 [...] for 2 days PREDNISONE 20 MG TAB 352155 PREDNISONE Inactive BACTRIM DS 800-160 MG TABS [...] Panel - Chemistry sodium, serum 141 mmol/L [phone] potassium, serum 4.3 mmol/L 3.5-5.2 chloride, serum 106 mmol/L 98-107 carbon dioxide, venous blood 25.7 mmol/L 21.0-32.0 blood glucose 119 mg/dL 65-110 urea nitrogen, blood 22 mg/dL 7-18 creatinine, serum 0.90 mg/dL 0.60-1.30 alanine aminotransferase (SGPT), serum 28 U/L -78 aspartate aminotransferase (SGOT), serum 13 U/L 15-37 calcium, serum 8.5 mg/dL 8.5-10.1 bilirubin, serum, total 0.20 mg/dL 0.00-1.00 Lab Report: Comp. Metabolic Panel, Lipid Panel - Chemistry sodium, serum 139 mmol/L 571-689 9079/12/31 potassium, serum 4.8 mmol/L 3.5-5.2 chloride, serum 106 mmol/L 98-107 carbon dioxide, venous blood 24.3 mmol/L 21.0-32.0 blood glucose 90 mg/dL 65-110 urea nitrogen, blood 16 mg/dL 7-18 creatinine, serum 1.00 mg/dL 0.60-1.30 alanine aminotransferase (SGPT), serum 41 U/L 78 aspartate aminotransferase (SGOT), serum 17 U/L 15-37 calcium, serum 8.6 mg/dL 8.5-10.1 bilirubin, serum, total 0.30 mg/dL 0.00-1.00 cholesterol, serum 108 mg/dL 098-437 4637/12/31 triglyceride, serum, fasting 120 mg/dL 30-200 HDL [...] Negative Negative Lab Report: [facility]ADIP W/MICRO, [place], [facility] [place] - Chemistry protein, total urine random Negative mg/dL Negative RBC, urine, dipstick Negative Negative human chorionic gonadotropin, urine, qualitative (urine test) Negative Negative Lab Report: UADIP W/MICRO, AUTO, [facility] [place] Urinalysis urobilinogen, urine, semiquantitative (dipstick) 0.2 Normal leukocyte esterase, urine, by dipstick Negative Negative nitrite, urine, semiquantitative Negative Negative glucose, urine, semiquantitative Negative Negative ketones, urine, by test strip Negative Negative bilirubin, urine Negative Negative urine color Yellow Colorless;Lightyellow;Straw;Yellow appearance, urine Clear Clear specific gravity, urine 1.025 1.000-1.030 pH, urine, semiquantitative 7.0 5.0-8.5 Lab Report: Varicella-Zoater Inga IgG,IgM/56803, HEP Be Antibody/556, RUB ... - Serology rubella antibody, serum, IgG 2.88 Encounters Code Encounter Date Provider Facility CPT-71639 Level 3 Est. Patient 14:49:50 CDT Vishal Hui MD [facility] CPT-89509 Level 4 Est. Patient 18:41:46 CDT Neeraj Collins MD [facility] CPT-21211 Level 4 Est. Patient 09:18:38 SURGEON'S ASSISTANT Vishal Hui MD [facility]-28357 Level 3 Est. Patient 14:43:55 SURGEON'S ASSISTANT Vishal Hui MD [facility] CPT-89615 Level 3 Est. Patient 15:26:33 SURGEON'S ASSISTANT Sahara Rodriguez MD [facility] CPT-19691 Level 3 Est. Patient 10:32:14 SURGEON'S ASSISTANT Vishal Hui MD [facility] CPT-08314 Level 3 Est. Patient 15:12:52 SURGEON'S ASSISTANT Vishal Hui MD [facility] CPT-91768 Level 4 Est. Patient 09:19:27 CDT Vishal Hui MD [facility]-84626 Level 3 Est. Patient 15:53:00 CDT Renzo Thornton DO [facility] CPT-54148 Level 3 Est. Patient 15:50:30 CDT Renzo Thornton [facility] CPT-27094 Level 3 Est. Patient 16:55:24 CDT Vishal Hui MD [facility] Procedures Code Procedure Name Date Entry Date Standard Description CPT-07716 Recombivax HB Injection Suspension 5 MCG/0.5ML 10:00:41 CDT CPT-76288 Administration single or combination vaccine inc oral 10 :00:41 CDT CPT-62139 Sono transvag pelvis non OB uterus ovaries cervix 16:36: 57 CDT CPT-69538 LS spine comp w obliq 09:50:55 SURGEON'S ASSISTANT CPT-33637 Abd compl w upright 09:50:55 SURGEON'S ASSISTANT CPT-J1100 Decadron 4mg (Dexamethasone) 15:51:24 SURGEON'S ASSISTANT CPT-J1030 Depo Medrol 40 mg (Methyl Prednisolone Acetate) 15:51: 24 SURGEON'S ASSISTANT CPT-67758 Abx/Therapy Injection 15:51:24 SURGEON'S ASSISTANT CPT-J1100 Decadron 4mg (Dexamethasone) 15:26:33 SURGEON'S ASSISTANT CPT-J1030 Depo Medrol 40 mg (Methyl Prednisolone Acetate) 15:26: 33 SURGEON'S ASSISTANT CPT-16571 Sono retroperitoneal complete kidneys and bladder 17:15: 30 CDT CPT-94972 Abd compl w upright 16:09:25 CDT CPT-J1100 Decadron 8mg (Dexamethasone) 17:07:57 CDT CPT-88703 Abx/Therapy Injection 17:07:57 CDT CPT-J1100 Decadron 8mg (Dexamethasone) 16:55:24 CDT CPT-99452 Chest 2V Frontal and Lat 16:32:44 CDT
--- OUTSIDE RECORDS SUMMARY | 2016-11-04 12:09 | XMS REPORT | Clinical Summary ---
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 Morbid obesity 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 Active Juliet Kimbrough TELEGRAPHIC SERVICE DISPATCHER Dependence on other enabling machines and devices Gait unsteady 781.2 Active Juliet Kimbrough APRN Abnormality of gait Pneumonia, organism unspecified ICD-486 Inactive Vishal Hui [...] MD Physical examination ICD-V70.0 Jim Hui MD Abdominal pain ICD-789.00 Inactive Vishal Hui MD Vaginitis ICD-616.10 Inactive Vishal Hui MD Vaginitis, candidal ICD-112.1 Jim Hui MD Other abnormal blood chemistry ICD-790.6 Jim Hui MD 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 Jim Hui MD Boils, recurrent ICD-680.9 Jim Hui MD Postconcussion syndrome ICD-310.2 Jim Hui MD Nevus, 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 Jim Hui MD Encounter for removal of sutures ICD-V58.32 Jim Hui MD Fatigue ICD-780.79 Jim Hui MD 2014 Hot flashes ICD-627.2 Inactive Vishal Hui MD Personality change ICD-301.9 Inactive Vishal Hui MD Leukocytosis ICD-288.60 Inactive Vishal Hui MD UTI ICD-599.0 Inactive Vishal Hui MD Elevated blood glucose ICD-790.29 Inactive Vishal Hui MD Medication List Medication Instructions Start Date Stop Date Generic Name NDC Status Provider Patient Instruction ABILIFY MAINTENA 400 MG IM SUSR Injection once per month ARIPIPRAZOLE 62658538115 Active Juliet Kimbrough APRN Active PREDNISONE 20 MG TAB 2 tabs daily for 4 days, 1 tab daily for 4 days, 1/2 tab daily for 4 days PREDNISONE 50143247740 Active Vishal Hui MD Active IMITREX 50 MG ORAL TABS 1/2 tab every 6 hours prn SUMATRIPTAN SUCCINATE 58184680368 Active Tataina Mauricio NORIEGA Active AMBIEN 5 MG ORAL TABS 1 tab at bedtime ZOLPIDEM TARTRATE 37257595243 Active 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 APRN Active PROZAC 20 MG ORAL CAPS 1 tab daily FLUOXETINE HCL 97371169865 Active Tataina Mauricio NORIEGA Active ABILIFY 15 MG ORAL TABS 1 tab daily ARIPIPRAZOLE 15820514462 Active Pacollina Mauricio WALTERSN Active MINIPRESS 2 MG CAPS 4 cap po at night PRAZOSIN HCL 64004304517 Active Jillina Mauricio WALTERSN Active TOPAMAX 50 MG ORAL TABS 1 tab twice daily TOPIRAMATE 89039645773 Active Jillina Mauricio WALTERSN Active SAPHRIS 5 MG SUBL 1 po bid ASENAPINE MALEATE 53297304020 No Longer Active Jillina Fralebron WALTERSN Active LATUDA 80 MG TABS Take one by mouth daily LURASIDONE HCL 12855617757 No Longer Active 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 APRN Active AMLODIPINE BESYLATE 5 MG TABS 1 tablet by mouth daily AMLODIPINE BESYLATE 64202424360 No Longer Active 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 APRN Active AMITRIPTYLINE HCL 100 MG TAB one at hs AMITRIPTYLINE HCL 18287446510 No Longer Active Vishal Hui MD Active TRAZODONE HCL 100 MG TAB take 1 at bedtime TRAZODONE HCL 79027456328 No Longer Active Vishal Hui MD Active VYVANSE 40 MG CAPS 1 daily, LISDEXAMFETAMINE DIMESYLATE 64031340664 No Longer Active Vishal Hui MD Active IBUPROFEN 600 MG TAB 1 po TID PRN IBUPROFEN 47210234408 No Longer Active Vishal Hui MD Active MIRALAX PACK 1 po qd PRN Constipation POLYETHYLENE GLYCOL 3350 19977718755 Active Vishal Hui MD Active PROZAC 20 MG CAP Take one by mouth daily FLUOXETINE HCL 64769269793 No Longer Active Vishal Hui MD Active ZOFRAN 4 MG TABS 1 po q6hr PRN Nausea ONDANSETRON HCL Active Vishal Hui MD Active BACTRIM DS 800-160 MG TABS 1 pill by mouth twice daily SULFAMETHOXAZOLE-TRIMETHOPRIM 78362299762 No Longer Active Sahara Rodriguez MD PhD Active DIFLUCAN 150 MG TAB 1 tablet by mouth daily FLUCONAZOLE 09764641501 No Longer Active Vishal Hui MD Active TIZANIDINE HCL 4 MG TABS 1 po q6hr PRN Muscle Spasm/Back Pain TIZANIDINE HCL 89425011143 Active 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 APRN Active CLINDAMYCIN HCL 150 MG CAPS 1 four times a day CLINDAMYCIN HCL 36122496591 No Longer Active Neeraj Clolins MD Active KEFLEX 500 MG ORAL CAPS 1 cap QID by mouth CEPHALEXIN 91487050701 No Longer Active Neeraj Collins MD Active DIFLUCAN 150 MG TABS 1 pill every other day x 2 doses FLUCONAZOLE 01833656140 No Longer Active Sahara Rodriguez MD PhD Active MELATONIN 3 MG CAPS 2 po q hs MELATONIN 31447643940 No Longer Active Sahara Rodriguez MD PhD Active MULTIVITAMINS CAPS Take one by mouth daily MULTIPLE VITAMIN 94020566250 No Longer Active Sahara Rodriguez MD PhD Active BACTRIM DS 800-160 MG TAB 1 tab by mouth twice daily TRIMETHOPRIM-SULFAMETHOXAZOLE 21665148771 No Longer Active Sahara Rodriguez MD PhD Active [facility] PROBIOTIC ORAL CHEW 2 daily po PROBIOTIC PRODUCT 79233240357 No Longer Active Sahara Rodriguez MD PhD Active BACTRIM DS 800-160 MG TABS 1 po BID x 7 days SULFAMETHOXAZOLE-TRIMETHOPRIM 84248104486 No Longer Active Vishal Hui MD Active CHANTIX STARTING MONTH EARNEST 0.5 MG X 11 & 1 MG X 42 TABS 0.5mg daily for 3 days , then 0.5mg BID for 4 days, then 1mg BID VARENICLINE TARTRATE 64926518945 No Longer Active TAMARA Gray Active METOPROLOL TARTRATE 50 MG TAB 1 po bid METOPROLOL TARTRATE 29978511787 Active Vishal Hui MD Active VERAPAMIL HCL CR 120 MG TAB CR 1 po bid VERAPAMIL HCL 80309143165 No Longer Active Vishal Hui MD Active METOPROLOL SUCCINATE 50 MG TB24 1 tablet by mouth daily METOPROLOL SUCCINATE 41219146090 No Longer Active Vishal Hui MD Active TRAMADOL HCL 50 MG TABS 1-2 po TID PRN Pain TRAMADOL HCL 62542902857 Active 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 APRN Active SAPHRIS 10 MG SUBL 1 tab po bid ASENAPINE MALEATE 67045650700 No Longer Active Vishal Hui MD Active LISINOPRIL 20 MG TABS 1 tab po qd LISINOPRIL 51172262040 No Longer Active Vishal Hui MD Active BENADRYL 25 MG CAP 2 po tid prn anxiety DIPHENHYDRAMINE HCL 93598290019 Active Vishal Hui MD Active LATUDA 20 MG TABS Take one by mouth daily LURASIDONE HCL 96429625989 No Longer Active Vishal Hui MD Active TRAZODONE HCL 50 MG TABS 1/2 tab po qd prn for anxiety TRAZODONE HCL 38391606213 No Longer Active Vishal Hui MD Active PIROXICAM 20 MG CAPS 1 cap po qd PRN Pain PIROXICAM 73143282141 Active Vishal Hui MD Active OMEPRAZOLE 20 MG TBEC 1 po q a.m. 30min prior to first food intake OMEPRAZOLE 09389939806 Active Vishal Hui MD Active RANITIDINE HCL 150 MG CAPS 1 twice a day RANITIDINE HCL 43670802049 Active Vishal Hui MD Active LINZESS 290 MCG CAPS Take one by mouth daily LINACLOTIDE 62211878090 No Longer Active Vishal Hui MD Active SAPHRIS 5 MG SUBL 1 tab po qd ASENAPINE MALEATE 97699327018 No Longer Active Vishal Hui MD Active ZALEPLON 10 MG CAPS 1 cap po every other night ZALEPLON 06855685037 No Longer Active Vishal Hui MD Active LYRICA 50 MG CAPS 1 tab po TID PREGABALIN 24139012646 No Longer Active Vishal Hui MD Active LORATADINE 10 MG TABS 1 tab po qd LORATADINE 63520704403 No Longer Active Vishal Hui MD Active VERAPAMIL HCL ER 180 MG CR-TABS 1 tab po bid VERAPAMIL HCL 87735383593 No Longer Active Vishal Hui MD Active MIRALAX POWD 1 capfull once daily POLYETHYLENE GLYCOL 3350 50799951992 No Longer Active Vishal Hui MD Active PREDNISONE 20 MG TABS 1 tab po qd PREDNISONE 17040728596 No Longer Active Renzo Thornton DO Active LEVOFLOXACIN 500 MG TABS 1 tab po qd LEVOFLOXACIN 64379878170 No Longer Active Renzo Thornton DO Active BUSPIRONE HCL 15 MG TABS 1 tab po TID BUSPIRONE HCL 73073266849 No Longer Active Renzo Thornton DO Active BENZTROPINE MESYLATE 1 MG TABS 1 tab po qd BENZTROPINE MESYLATE 18063220026 No Longer Active Renzo Thornton DO Active ATENOLOL 25 MG TABS 1 tab po qd ATENOLOL 06012473110 No Longer Active Renzo Thornton DO Active ESCITALOPRAM OXALATE 20 MG TABS 1 tab po qd ESCITALOPRAM OXALATE 89779603364 No Longer Active Renzo Thornton DO Active ADVAIR DISKUS 250-50 MCG/DOSE AEPB 1 puff BID FLUTICASONE-SALMETEROL 09096194767 No Longer Active Renzo Thornton DO Active PREDNISONE 20 MG TAB 2 tabs daily for 3 days, 1 tab daily for 3 days, 1/2 tab daily for 2 days PREDNISONE 45048903493 No Longer Active Vishal Hui MD Active CEFDINIR 300 MG CAPS by mouth twice a day CEFDINIR 41737619426 No Longer Active Vishal Hui MD Active LANSOPRAZOLE 30 MG CPDR 1 cap po qd LANSOPRAZOLE 89754149175 No Longer Active Vishal Hui MD Active BACLOFEN 20 MG TABS 1 tab po tid BACLOFEN 85451464152 No Longer Active Vishal Hui MD Active ADVAIR DISKUS 250-50 MCG/DOSE AEPB 1 puff BID ADVAIR DISKUS 250-50 MCG/DOSE AEPB FLUTICASONE-SALMETEROL Inactive ESCITALOPRAM OXALATE 20 MG TABS 1 tab po qd ESCITALOPRAM OXALATE 20 MG TABS 545642 ESCITALOPRAM OXALATE Inactive ATENOLOL 25 MG TABS 1 tab po qd ATENOLOL 25 MG TABS 389780 ATENOLOL Inactive BENZTROPINE MESYLATE 1 MG TABS 1 tab po qd BENZTROPINE MESYLATE 1 MG TABS 597342 BENZTROPINE MESYLATE Inactive BUSPIRONE HCL 15 MG TABS 1 tab po TID BUSPIRONE HCL 15 MG TABS 956542 BUSPIRONE HCL Inactive LEVOFLOXACIN 500 MG TABS 1 tab po qd LEVOFLOXACIN 500 MG TABS 185787 LEVOFLOXACIN Inactive PREDNISONE 20 MG TABS 1 tab po qd PREDNISONE 20 MG TABS 389241 PREDNISONE Inactive MIRALAX POWD 1 capfull once daily MIRALAX POWD 470150 POLYETHYLENE GLYCOL 3350 Inactive VERAPAMIL HCL ER 180 MG CR-TABS 1 tab po bid VERAPAMIL HCL ER 180 MG CR-TABS VERAPAMIL HCL Inactive LORATADINE 10 MG TABS 1 tab po qd LORATADINE 10 MG TABS 092896 LORATADINE Inactive LYRICA 50 MG CAPS 1 tab po TID LYRICA 50 MG CAPS PREGABALIN Inactive ZALEPLON 10 MG CAPS 1 cap po every other night ZALEPLON 10 MG CAPS 734003 ZALEPLON Inactive SAPHRIS 5 MG SUBL 1 tab po qd SAPHRIS 5 MG SUBL ASENAPINE MALEATE Inactive TRAZODONE HCL 50 MG TABS 1/2 tab po qd prn for anxiety TRAZODONE HCL 50 MG TABS 163637 TRAZODONE HCL Inactive LATUDA 20 MG TABS Take one by mouth daily LATUDA 20 MG TABS LURASIDONE HCL Inactive LISINOPRIL 20 MG TABS 1 tab po qd LISINOPRIL 20 MG TABS 164411 LISINOPRIL Inactive SAPHRIS 10 MG SUBL 1 [...] twice daily BACTRIM DS 800-160 MG TAB 671999 TRIMETHOPRIM-SULFAMETHOXAZOLE Inactive MULTIVITAMINS CAPS Take one by mouth daily MULTIVITAMINS CAPS MULTIPLE VITAMIN Inactive MELATONIN 3 MG CAPS 2 po q hs MELATONIN 3 MG CAPS 165072 MELATONIN Inactive KEFLEX 500 MG ORAL CAPS 1 cap QID by mouth KEFLEX 500 MG ORAL CAPS 574363 CEPHALEXIN Inactive CLINDAMYCIN HCL 150 MG CAPS 1 four times a day CLINDAMYCIN HCL 150 MG CAPS 453780 CLINDAMYCIN HCL Inactive DIFLUCAN 150 MG TAB 1 tablet by mouth daily DIFLUCAN 150 MG TAB 807533 FLUCONAZOLE Inactive PROZAC 20 MG CAP Take one by mouth daily PROZAC 20 MG CAP 436261 FLUOXETINE HCL Inactive IBUPROFEN 600 MG TAB 1 po TID PRN IBUPROFEN 600 MG TAB 121887 IBUPROFEN Inactive VYVANSE 40 MG CAPS 1 daily, VYVANSE 40 MG CAPS LISDEXAMFETAMINE DIMESYLATE Inactive TRAZODONE HCL 100 MG TAB take 1 at bedtime TRAZODONE HCL 100 MG TAB 346891 TRAZODONE HCL Inactive AMITRIPTYLINE HCL 100 MG TAB one at hs AMITRIPTYLINE HCL 100 MG TAB 103320 AMITRIPTYLINE HCL Inactive AMLODIPINE BESYLATE 5 MG TABS 1 tablet by mouth daily AMLODIPINE BESYLATE 5 MG TABS 871873 AMLODIPINE BESYLATE Inactive LATUDA 80 MG TABS Take one by mouth daily LATUDA 80 MG TABS LURASIDONE HCL Inactive SAPHRIS 5 MG SUBL 1 po bid SAPHRIS 5 MG SUBL ASENAPINE MALEATE Inactive CEFDINIR 300 MG CAPS by mouth twice a day CEFDINIR 300 MG CAPS 303831 CEFDINIR Inactive PREDNISONE 20 MG TAB 2 tabs daily for 3 days, 1 tab daily for 3 days, 1/2 tab daily for 2 days PREDNISONE 20 MG TAB 864114 PREDNISONE Inactive BACTRIM DS 800-160 MG TABS 1 po BID x 7 days BACTRIM DS 800-160 MG TABS 19820521 SULFAMETHOXAZOLE-TRIMETHOPRIM Inactive DIFLUCAN 150 MG TABS 1 pill every other day x 2 doses DIFLUCAN 150 MG TABS 274836 FLUCONAZOLE Inactive BACTRIM DS 800-160 MG TABS 1 pill by mouth twice daily BACTRIM DS 800-160 MG TABS 19820521 SULFAMETHOXAZOLE-TRIMETHOPRIM Inactive Advance Directives Directive Description Start Date DISCUSSED WITH PATIENT -- NO DECISION MADE Vital Signs Date Name Value Unit Range Description blood pressure, diastolic - 8462-4 82 mm[Hg] [...] leukocyte count, blood 10.5 10^3/MM^3 10*3/mm3 4.6-10.2 mean corpuscular hemoglobin concentration, RBC 33.7 G/DL % 31.8- 35.4 red blood cell distribution width 13.4 % 11.6-14.8 platelet count 394 10^3/MM^3 10*3/mm3 917-645 3051/12/22 erythrocyte (RBC) count 4.19 10^6/MM^3 10*6/mm3 4.04-5.48 hemoglobin, blood 13.1 g/dL 12.0-16.0 hematocrit, blood 39.0 % 36.0-46.0 mean corpuscular volume, RBC 93 fL 80-97 mean corpuscular hemoglobin, RBC 31.4 pg 27.0-31.2 leukocyte count, blood 13.8 10^3/MM^3 10*3/mm3 4.6-10.2 [...] leukocyte count, blood 11.4 10^3/MM^3 10*3/mm3 4.6-10.2 hematocrit, blood 39.6 % 36.0-46.0 mean corpuscular volume, RBC 93 fL 80-97 mean corpuscular hemoglobin, RBC 32.0 pg 27.0-31.2 mean corpuscular hemoglobin concentration, RBC 34.3 G/DL % 31.8- 35.4 red blood cell distribution width 13.2 % 11.6-14.8 platelet count 379 10^3/MM^3 10*3/mm3 161-178 8226/12/11 neutrophils as percent of blood leukocytes 58.9 % 42.2-75.2 monocytes as percent of blood leukocytes 8.1 % 1.7-9.3 lymphocytes as percent of blood leukocytes 29.2 % 20.5-51.1 erythrocyte (RBC) count 4.26 10^6/MM^3 10*6/mm3 4.04-5.48 hemoglobin, blood 13.6 g/dL 12.0-16.0 Lab Report: CBC W/DIFF, Comp. Metabolic Panel, HGBA1C, Lipid Panel - Chemistry sodium, serum 139 mmol/L 270-554 8368/12/03 carbon dioxide, venous blood 28.5 mmol/L 21.0-32.0 [...] 5.5 % 4.3-6.0 cholesterol, serum 159 mg/dL 388-503 6702/12/03 triglyceride, serum, fasting 118 mg/dL 30-200 HDL cholesterol, serum 45 mg/dL 32-96 LDL cholesterol, serum 90 mg/dL 0-130 Lab Report: CBC W/DIFF, Comp. Metabolic Panel, HGBA1C, Lipid Panel - Hematology neutrophils as percent of blood leukocytes 62.7 % 42.2-75.2 monocytes as percent of blood leukocytes 8.0 % 1.7-9.3 lymphocytes as percent of blood leukocytes 26.7 % 20.5-51.1 erythrocyte (RBC) count 4.38 10^6/MM^3 10*6/mm3 4.04-5.48 hemoglobin, blood 13.8 g/dL 12.0-16.0 leukocyte count, blood 12.5 10^3/MM^3 10*3/mm3 4.6-10.2 hematocrit, blood 40.8 % 36.0-46.0 mean corpuscular volume, RBC 93 fL 80-97 mean corpuscular hemoglobin, RBC 31.6 pg 27.0-31.2 mean corpuscular hemoglobin concentration, RBC 34.0 G/DL % 31.8- 35.4 red blood cell distribution width 12.8 % 11.6-14.8 platelet count 362 10^3/MM^3 10*3/mm3 142-424 Lab Report: CBC, Comp. Metabolic Panel, Free Thyroxine (L), Thyroid Stim ... - Chemistry sodium, serum 140 mmol/L 770-111 6131/05/28 potassium, serum 4.2 mmol/L 3.5-5.2 chloride, serum [...] Panel - Chemistry sodium, serum 141 mmol/L 634-023 2513 creatinine, serum 0.90 mg/dL 0.60-1.30 alanine aminotransferase (SGPT), serum 28 U/L 12-78 aspartate aminotransferase (SGOT), serum 13 U/L 15-37 calcium, serum 8.5 mg/dL 8.5-10.1 bilirubin, serum, total 0.20 mg/dL 0.00-1.00 potassium, serum 4.3 mmol/L 3.5-5.2 chloride, serum 106 mmol/L 98-107 carbon dioxide, venous blood 25.7 mmol/L 21.0-32.0 blood glucose 119 mg/dL 65-110 urea nitrogen, blood 22 mg/dL 7-18 sodium, serum 139 mmol/L 881-417 5416/12/22 creatinine, serum 0.90 mg/dL 0.55-1.30 alanine aminotransferase (SGPT), serum 38 U/L -78 aspartate aminotransferase (SGOT), serum 19 U/L 15-37 calcium, serum 8.6 mg/dL 8.5-10.1 bilirubin, serum, total 0.30 mg/dL 0.00-1.00 carbon dioxide, venous blood 26.8 mmol/L 21.0-32.0 potassium, serum 4.2 mmol/L 3.5-5.2 chloride, serum 103 mmol/L 98-107 blood glucose 115 mg/dL 65-110 urea nitrogen, blood 20 mg/dL 7-18 sodium, serum 139 mmol/L 426-415 9572/01/11 carbon dioxide, venous blood 26.6 mmol/L 21.0-32.0 potassium, serum 4.1 mmol/L 3.5-5.2 chloride, serum 100 mmol/L 98-107 blood glucose 86 mg/dL 65-110 urea nitrogen, blood 16 mg/dL 7-18 creatinine, serum 1.00 mg/dL 0.55-1.30 alanine aminotransferase (SGPT), serum 48 U/L 78 aspartate aminotransferase (SGOT), serum 17 U/L 15-37 calcium, serum 9.1 mg/dL 8.5-10.1 bilirubin, serum, total 0.40 mg/dL 0.00-1.00 Lab Report: Comp. Metabolic Panel, Erythrocyte Sed Rate - Chemistry sodium, serum 139 mmol/L 419-487 2666/12/11 carbon dioxide, venous blood 25.4 mmol/L 21.0-32.0 [...] 1.020 1.000-1.030 pH, urine, semiquantitative 6.0 5.0-8.5 urine color Yellow Colorless;Lightyellow;Straw;Yellow ketones, urine, by test strip Negative Negative bilirubin, urine Negative Negative glucose, urine, semiquantitative Negative Negative Lab Report: Thyroid [...] strip Negative Negative bilirubin, urine Negative Negative appearance, urine Clear Clear specific [...] 1.025 1.000-1.030 pH, urine, semiquantitative 5.5 5.0-8.5 urine color Yellow Colorless;Lightyellow;Straw;Yellow ketones, urine, by test strip Negative Negative bilirubin, urine Negative Negative Lab Report: UADIP W/MICRO, AUTO, [facility] [place] Chemistry RBC, urine, dipstick Negative Negative human chorionic gonadotropin, urine, qualitative (urine test) Negative Negative protein, total urine random Negative mg/dL Negative Lab Report: UADIP W/MICRO, AUTO, [facility] [place] - Urinalysis pH, urine, semiquantitative 7.0 5.0-8.5 specific gravity, urine 1.025 1.000-1.030 appearance, urine Clear Clear urine color Yellow Colorless;Lightyellow;Straw;Yellow urobilinogen, urine, semiquantitative (dipstick) 0.2 Normal leukocyte esterase, urine, by dipstick Negative Negative nitrite, urine, semiquantitative Negative Negative glucose, urine, semiquantitative Negative Negative ketones, urine, by test strip Negative Negative bilirubin, urine Negative Negative Lab Report: Varicella-Zoater Inga IgG,IgM/75806, HEP Be Antibody/556, RUB ... - Serology rubella antibody, serum, IgG 2.88 Encounters Code Encounter Date Provider Facility CPT-87564 Level 4 Est. Patient 09:00:51 SLITTER SCORER Vishal Hui MD [facility] CPT-19763 Level 3 Est. Patient 11:37:33 SLITTER SCORER Vishal Hui MD [facility] CPT-53100 Level 3 Est. Patient 08:41:09 SLITTER SCORER Vishal Hui MD [facility] CPT-42847 Level 4 Est. Patient 10:19:35 SLITTER SCORER Vishal Hui MD [facility] CPT-62876 Level 3 Est. Patient 13:35:45 CDT Vishal Hui MD [facility] CPT-96661 Level 4 Est. Patient 10:08:37 CDT Vishal Hui MD [facility]-33463 Level 3 Est. Patient 11:22:10 CDT Vishal Hui MD [facility] CPT-91050 Level 3 Est. Patient 11:03:32 CDT Sahara Rodriguez MD [facility]-91462 Level 3 Est. Patient 09:41:35 CDT Vishal Hui MD [facility]-72347 Level 3 Est. Patient 12:00:41 CDT Neeraj Collins MD [facility]-26416 Level 3 Est. Patient 09:16:24 CDT Vishal Hui MD [facility] CPT-79136 Level 4 Est. Patient 13:59:09 CDT Neeraj Collins MD [facility]-19505 Level 3 Est. Patient 15:19:43 CDT Renzo Thornton DO [facility] CPT-69514 Level 3 Est. Patient 18:10:26 CDT Sahara Rodriguez MD [facility]-58840 Level 3 Est. Patient 14:49:50 CDT Vishal Hui MD [facility]-15458 Level 4 Est. Patient 18:41:46 CDT Neeraj Collins MD [facility]-97110 Level 4 Est. Patient 09:18:38 SLITTER SCORER Vishal Hui MD [facility]-12815 Level 3 Est. Patient 14:43:55 SLITTER SCORER Vishal Hui MD [facility]-62570 Level 3 Est. Patient 15:26:33 SLITTER SCORER Sahara Rodriguez MD PhD [facility] CPT-76251 Level 3 Est. Patient 10:32:14 SLITTER SCORER Vishal Hui MD [facility] CPT-88263 Level 3 Est. Patient 15:12:52 SLITTER SCORER Vishal Hui MD [facility] CPT-50455 Level 4 Est. Patient 09:19:27 CDT Vishal Hui MD [facility] CPT-02051 Level 3 Est. Patient 15:53:00 CDT Renzo Thornton [facility] CPT-62669 Level 3 Est. Patient 15:50:30 CDT Renzo Thornton [facility] CPT-98034 Level 3 Est. Patient 16:55:24 CDT Vishal Hui MD [facility] Procedures Code Procedure Name Date Entry Date Standard Description CPT-J3420 Vitamin B12 1000mcg (Cyanocobalamin) 08:10:26 SLITTER SCORER 04/12 CPT-17839 Abx/Therapy Injection 08:10:26 SLITTER SCORER CPT-G0438 Initial Annual Wellness Exam 19:01:01 SLITTER SCORER CPT-J3420 Vitamin B12 1000mcg (Cyanocobalamin) 16:57:46 CDT 08/14 CPT-48112 Recombivax HB Injection Suspension 5 MCG/0.5ML 08:37:50 SLITTER SCORER CPT-65232 Immunization Single Admin 08:37:50 SLITTER SCORER CPT-J3420 Vitamin B12 1000mcg (Cyanocobalamin) 08:32:16 SLITTER SCORER 03/11 CPT-91664 Abx/Therapy Injection 08:32:16 SLITTER SCORER CPT-41344 Chest 2V Frontal and Lat 11:46:38 SLITTER SCORER CPT-99057 Venipuncture Draw Fee 09:12:45 SLITTER SCORER CPT-J3420 Vitamin B12 1000mcg (Cyanocobalamin) 08:50:15 SLITTER SCORER 02/08 CPT-85453 Abx/Therapy Injection 08:50:15 SLITTER SCORER CPT-Cryo Cryotherapy 10:19:35 SLITTER SCORER CPT-000 Give Appropriate Flu Vaccine 09:22:16 CDT CPT-J3420 Vitamin B12 1000mcg (Cyanocobalamin) 19:08:57 CDT 01/11 CPT-48058 Abx/Therapy Injection 19:08:57 CDT CPT-J3420 Vitamin B12 1000mcg (Cyanocobalamin) 08:19:08 CDT 12/11 CPT-45723 Abx/Therapy Injection 08:19:08 CDT CPT-J3420 Vitamin B12 1000mcg (Cyanocobalamin) 14:48:00 CDT 11/09 CPT-60905 Abx/Therapy Injection 14:47:59 CDT CPT-J3420 Vitamin B12 1000mcg (Cyanocobalamin) 08:34:04 CDT 10/09 CPT-64155 Abx/Therapy Injection 08:34:04 CDT CPT-J3420 Vitamin B12 1000mcg (Cyanocobalamin) 09:18:52 CDT 09/11 CPT-48398 Abx/Therapy Injection 09:18:52 CDT CPT-J3420 Vitamin B12 1000mcg (Cyanocobalamin) 08:35:44 CDT 09/04 CPT-93154 Abx/Therapy Injection 08:35:44 CDT CPT-51121 Immunization Single Admin 11:07:16 CDT CPT-34033 Hepatitis B adult IM 11:07:16 CDT CPT-J3420 Vitamin B12 1000mcg (Cyanocobalamin) 11:00:49 CDT 08/28 CPT-J1040 Depo Medrol 80 mg (Methyl Prednisolone Acetate) 11:00: 49 CDT CPT-94491 Abx/Therapy Injection 11:00:49 CDT CPT-J1040 Depo Medrol 80 mg (Methyl Prednisolone Acetate) 09:16: 23 CDT CPT-J3420 Vitamin B12 1000mcg (Cyanocobalamin) 08:27:05 CDT 08/20 CPT-24071 Abx/Therapy Injection 08:27:05 CDT CPT-28402 Recombivax HB Injection Suspension 5 MCG/0.5ML 10:00:41 CDT CPT-83487 Administration single or combination vaccine inc oral 10 :00:41 CDT CPT-03139 Sono transvag pelvis non OB uterus ovaries cervix 16:36: 57 CDT CPT-68092 LS spine comp w obliq 09:50:55 SLITTER SCORER CPT-53419 Abd compl w upright 09:50:55 SLITTER SCORER CPT-J1100 Decadron 4mg (Dexamethasone) 15:51:24 SLITTER SCORER CPT-J1030 Depo Medrol 40 mg (Methyl Prednisolone Acetate) 15:51: 24 SLITTER SCORER CPT-32209 Abx/Therapy Injection 15:51:24 SLITTER SCORER CPT-J1100 Decadron 4mg (Dexamethasone) 15:26:33 SLITTER SCORER CPT-J1030 Depo Medrol 40 mg (Methyl Prednisolone Acetate) 15:26: 33 SLITTER SCORER CPT-40290 Sono retroperitoneal complete kidneys and bladder 17:15: 30 CDT CPT-61694 Abd compl w upright 16:09:25 CDT CPT-J1100 Decadron 8mg (Dexamethasone) 17:07:57 CDT CPT-32204 Abx/Therapy Injection 17:07:57 CDT CPT-J1100 Decadron 8mg (Dexamethasone) 16:55:24 CDT CPT-01832 Chest 2V Frontal and Lat 16:32:44 CDT
--- OUTSIDE RECORDS SUMMARY | 2016-11-04 12:12 | XMS REPORT ---
Author Author [facility] Medical Staff Organization [facility] Address [address] [place], [place] [id number] Phone [phone] Summary purpose TRANSITION OF CARE AUTO GENERATION [...] diagnostic tests and/or laboratory data RESULTS Routine Urinalysis [id number]:20:00 Result Normal Range Units Color YELLOW Clarity Clear Specific [place] 1.010 1.003-1.035 pH 5.5 4.5-8.0 Glucose NEGATIVE Bilirubin NEGATIVE Ketones NEGATIVE Protein NEGATIVE Urobilinogen 0.2 0-0.2 E.U./dL Nitrites NEGATIVE Blood NEGATIVE Leukocytes NEGATIVE WBCs 0-5 RBCs 0-5 Squamous Epithelial Few Bacteria Occasional Chemistry [id number]:00 Result Normal Range Units Sodium 140 134-145 mEq/l Potassium 4.2 3.5-5.1 mEq/l Chloride 105 98-107 mEq/l CO2 25.3 22-28 mEq/l Glucose H 115 70-105 mg/dl BUN 11 7-18 mg/dl Creatinine 0.90 0.6-1.0 mg/dl Calcium 8.8 8.4-10.2 mg/dl TP - Total Protein 7.2 6.0-8.3 g/dl Albumin 3.9 3.5-5 g/dl Bilirubin - Total 0.3 0.1-1.0 mg/dl AST 31 10-42 IU/L ALT 54 12-65 IU/L ALP H 95 25-72 IU/L Osmolality L 279.7 280-300 mOsm/L Albumin/Globulin Ratio 1.2 0-8 Anion GAP 9.7 8-16 BUN/Creatinine Ratio 12.2 10-20 Estimated GFR 75 >=60 mL/min/1.7 Hematology :27:00 Result Normal Range Units WBC 10.3 4.8-10.8 103/uL RBC 4.5 4.2-5.4 106/uL HGB 14.0 12.0-16.0 g/dl HCT 40.9 36.9-47.0 % MCV 91.3 81-99 FL MCH H 31.3 27-31 pg MCHC 34.2 33-37 g/dl RDW 12.5 11.5-15.5 % PLT 363 130-400 103/uL MPV 10.1 7.3-10.4 FL Neutro % 57.1 40-70 % Lymph % 31.9 20-40 % [place] % 8.9 0-10.0 % Eos % 1.4 0-7.0 % Baso % 0.4 0-2 % Neutro # 5.9 1.5-7.5 103/uL Lymph # 3.3 0.9-4.0 103/uL [place] # H 0.9 0-0.8 103/uL Eos # 0.1 0-0.6 103/uL Baso # 0.0 0-0.1 103/uL Body Fluid :20:00 Result Normal Range Units pH 5.5 4.5-8.0 Radiology Results :27:00 Result Normal Range Units MPV 10.1 7.3-10.4 FL History of procedures No procedures recorded for this patient visit. Functional status Functional Status Finding Observation Time Abdomen Appearance obese :00 Vick no :00 Urination normal : Quality sym/unlabored : Secretions no : Breath Sounds RUL clear : Breath Sounds RML clear : Breath Sounds RLL clear : Breath Sounds BENJA clear : Breath Sounds LLL clear : Airway natural : Chest Tube no : Oxygen no : Temp >100.4 no : Temp <96.8 no : Chills with rigors no : HR > 90bpm yes : Respirations > 20 no : Systolic <90 no : headache stiff neck no :00 IV Site Location R AC :15 IV Type peripheral :15 IV Site Information discontinued :15 IV Site Festus 20 :15 IV Site Appearance WNL :15 IV Site Color clear :15 IV Site Patent yes :15 Dressing Type occlusive :15 Nursing Note Pt is discharged to home with care car in good condition. [id number] Vital signs Type Value Date Respiration Rate 18breaths per minute : Pulse 96beats per minute :00 Oxygen Saturation 97% :00 BP Systolic 115mmHg :00 BP Diastolic 54mmHg :00 Temperature 98.4F :00 Social history Type Value Smoking Status CURRENT EVERY DAY SMOKER Treatment Plan No treatment plan text is available for this visit. Hospital discharge instructions Dismissal Condition good Disposition on DC home DC Inst/Educ Give yes Med/Side Effects Rev yes PNE Vac No Flu Vac 2014 Tetanus Vac 2014
--- OUTSIDE RECORDS SUMMARY | 2016-11-04 12:12 | XMS REPORT | Clinical Summary ---
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 Juliet Kimbrough [employer] Dependence on other enabling machines and devices Gait unsteady 781.2 Resolved Albert Caldera MD Abnormality of gait Lipoma 214.9 Resolved Albert Caldera MD Lipoma, unspecified site Abdominal pain, RUQ 789.01 Resolved Albert Caldera MD Abdominal pain, right upper quadrant Chest pain, acute 786.50 Resolved Albert Caldera MD Unspecified chest pain Localized adiposity 278.1 Active Ablert Caldera MD Localized adiposity Shortness of breath 786.05 Active Fabiola Johnson [employer] Shortness of breath Nocturnal hypoxia 799.02 Active Fabiola Johnson [employer] Hypoxemia Neck pain 723.1 Active Jilljanee Martínez [employer] Cervicalgia Vaginal discharge 623.5 Active Neeraj Collins [...] Generic Name NDC Status Provider Patient Instruction KENN MAINTENA 400 MG IM SUSR 400mg injection every 28 days ARIPIPRAZOLE 02061471992 Active Silvia Casey LPN Active FLAGYL 500 MG TAB 1 tablet by mouth bid METRONIDAZOLE 89006642390 Active Olimpia Raida Active FLUTICASONE PROPIONATE 50 MCG/ACT SUSP 2 sprays each nostril daily before bed. FLUTICASONE PROPIONATE 47507173506 Active Fabiola Johnson APRN Active VERAPAMIL HCL ER 120 MG ORAL CR-TABS 1 tab po daily for blood pressure 09/27 VERAPAMIL HCL 97544034911 Active Fabiola Johnson APRN Active ADZENYS XR-ODT 6.3 MG ORAL TBED 1 tab po daily for ADHD AMPHETAMINE 99191704105 Active Fabiola Johnson APRN Active BENADRYL 25 MG CAP 4 po at bedtime for insomnia DIPHENHYDRAMINE HCL 60122681441 Active Fabiola Johnson APRN Active KLONOPIN 1 MG ORAL TABS 1 tab po TID CLONAZEPAM 00011472206 Active Fabiola Johnson APRN Active VALIUM 5 MG TAB Take 1-2 tablets daily DIAZEPAM 02955954374 No Longer Active Fabiola Johnson APRN Active METOPROLOL TARTRATE 25 MG ORAL TABS 1/2 tablet twice daily for heart rate and blood pressure METOPROLOL TARTRATE 20977324659 No Longer Active Fabiola Johnson APRN Active MIRALAX ORAL POWD 17GMS DAILY IN WATER POLYETHYLENE GLYCOL 3350 74179782498 Active Vishal Hui MD Active VIIBRYD 10 MG ORAL TABS Take 1 tablet once a day VILAZODONE HCL 11271702606 Active Ahmet Carbajal MD Active DICLOFENAC POTASSIUM TABS Take 1 tablet twice a day (pt. is not sure of the dose.) DICLOFENAC POTASSIUM TABS 12003978760 Active Ahmet Carbajal MD Active MIRALAX PACK 1 po qd PRN Constipation POLYETHYLENE GLYCOL 3350 09801996241 No Longer Active Ahmet Carbajal MD Active MINIPRESS 2 MG CAPS 4 cap po at night PRAZOSIN HCL 58979283710 No Longer Active Ahmet Carbajal MD Active PIROXICAM 20 MG CAPS 1 cap po qd PRN Pain PIROXICAM 30043990855 No Longer Active Ahmet Carbajal MD Active TRAMADOL HCL 50 MG TABS 1-2 po TID PRN Pain TRAMADOL HCL 21965248408 No Longer Active Amhet Carbajal MD Active METOPROLOL TARTRATE 50 MG TAB 1 po bid METOPROLOL TARTRATE 20837388203 No Longer Active Ahmet Carbajal MD Active ABILIFY 15 MG ORAL TABS 1 tab daily ARIPIPRAZOLE 31944006489 No Longer Active Ahmet Carbajal MD Active PROZAC 20 MG ORAL CAPS 1 tab daily FLUOXETINE HCL 87069188173 No Longer Active Ahmet Carbajal MD Active AMBIEN 5 MG ORAL TABS 1 tab at bedtime ZOLPIDEM TARTRATE 90422027747 No Longer Active Ahmet Carbajal MD Active PREDNISONE 20 MG TAB 2 tabs daily for 4 days, 1 tab daily for 4 days, 1/2 tab daily for 4 days PREDNISONE 34216424588 No Longer Active Ahmet Carbajal MD Active KEFLEX 500 MG CAP 1 po TID x 10 days CEPHALEXIN 33177892330 No Longer Active Vishal Hui MD Active IMITREX 50 MG ORAL TABS 1/2 tab every 6 hours prn SUMATRIPTAN SUCCINATE 74546915376 Active 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 [employer] Active TOPAMAX 50 MG ORAL TABS 1 tab twice daily TOPIRAMATE 07386387478 Active Vishal Hui MD Active SAPHRIS 5 MG SUBL 1 po bid ASENAPINE MALEATE 63890894139 No Longer Active 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 APRN Active LATUDA 80 MG TABS Take one by mouth daily LURASIDONE HCL 62546405454 No Longer Active 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 APRN Active AMLODIPINE BESYLATE 5 MG TABS 1 tablet by mouth daily AMLODIPINE BESYLATE 20402537086 No Longer Active 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 [employer] Active AMITRIPTYLINE HCL 100 MG TAB one at hs AMITRIPTYLINE HCL 23639447310 No Longer Active Vishal Hui MD Active TRAZODONE HCL 100 MG TAB take 1 at bedtime TRAZODONE HCL 76074445238 No Longer Active Vishal Hui MD Active VYVANSE 40 MG CAPS 1 daily, LISDEXAMFETAMINE DIMESYLATE 98094968679 No Longer Active Vishal Hui MD Active IBUPROFEN 600 MG TAB 1 po TID PRN IBUPROFEN 01631611081 No Longer Active Vishal Hui MD Active PROZAC 20 MG CAP Take one by mouth daily FLUOXETINE HCL 43739749297 No Longer Active Vishal Hui MD Active ZOFRAN 4 MG TABS 1 po q6hr PRN Nausea ONDANSETRON HCL Active Vishal Hui MD Active BACTRIM DS 800-160 MG TABS 1 pill by mouth twice daily SULFAMETHOXAZOLE-TRIMETHOPRIM 68277198544 No Longer Active Sahara Rodriguez MD PhD Active DIFLUCAN 150 MG TAB 1 tablet by mouth daily FLUCONAZOLE 64127763578 No Longer Active Vishal Hui MD Active TIZANIDINE HCL 4 MG TABS 1 po q6hr PRN Muscle Spasm/Back Pain TIZANIDINE HCL 29082297384 Active Vishal Hui MD Active CLINDAMYCIN HCL 150 MG CAPS 1 four times a day CLINDAMYCIN HCL 64566404273 No Longer Active Neeraj Collins MD Active KEFLEX 500 MG ORAL CAPS 1 cap QID by mouth CEPHALEXIN 98939150184 No Longer Active Neeraj Collins MD Active DIFLUCAN 150 MG TABS 1 pill every other day x 2 doses FLUCONAZOLE 28557421561 No Longer Active Sahara Rodriguez MD PhD Active MELATONIN 3 MG CAPS 2 po q hs MELATONIN 49263325421 No Longer Active Sahara Rodriguez MD PhD Active MULTIVITAMINS CAPS Take one by mouth daily MULTIPLE VITAMIN 46095262488 No Longer Active Sahara Rodriguez MD PhD Active BACTRIM DS 800-160 MG TAB 1 tab by mouth twice daily TRIMETHOPRIM-SULFAMETHOXAZOLE 02646667610 No Longer Active Sahara Rodriguez MD PhD Active [facility] PROBIOTIC ORAL CHEW 2 daily po PROBIOTIC PRODUCT 22589869954 No Longer Active Sahara Rodriguez MD PhD Active BACTRIM DS 800-160 MG TABS 1 po BID x 7 days SULFAMETHOXAZOLE-TRIMETHOPRIM 80293787791 No Longer Active Vishal Hui MD Active CHANTIX STARTING MONTH EARNEST 0.5 MG X 11 & 1 MG X 42 TABS 0.5mg daily for 3 days , then 0.5mg BID for 4 days, then 1mg BID VARENICLINE TARTRATE 85019441441 No Longer Active TAMARA Gray Active VERAPAMIL HCL CR 120 MG TAB CR 1 po bid VERAPAMIL HCL 67899040535 No Longer Active Vishal Hui MD Active METOPROLOL SUCCINATE 50 MG TB24 1 tablet by mouth daily METOPROLOL SUCCINATE 98448973482 No Longer Active Vishal Hui MD Active SAPHRIS 10 MG SUBL 1 tab po bid ASENAPINE MALEATE 55555406427 No Longer Active Vishal Hui MD Active LISINOPRIL 20 MG TABS 1 tab po qd LISINOPRIL 66893400322 No Longer Active Vishal Hui MD Active LATUDA 20 MG TABS Take one by mouth daily LURASIDONE HCL 84836453713 No Longer Active Vishal Hui MD Active TRAZODONE HCL 50 MG TABS 1/2 tab po qd prn for anxiety TRAZODONE HCL 48774329703 No Longer Active Vishal Hui MD Active OMEPRAZOLE 20 MG TBEC 1 po q a.m. 30min prior to first food intake OMEPRAZOLE 44899878601 Active Vishal Hui MD Active RANITIDINE HCL 150 MG CAPS 1 twice a day RANITIDINE HCL 34488068352 Active Jilljanee Martínez APRN Active LINZESS 290 MCG CAPS Take one by mouth daily LINACLOTIDE 66041184691 No Longer Active Vishal Hui MD Active SAPHRIS 5 MG SUBL 1 tab po qd ASENAPINE MALEATE 02845167313 No Longer Active Vishal Hui MD Active ZALEPLON 10 MG CAPS 1 cap po every other night ZALEPLON 41531199124 No Longer Active Vishal Hui MD Active LYRICA 50 MG CAPS 1 tab po TID PREGABALIN 46018084100 No Longer Active Vishal Hui MD Active LORATADINE 10 MG TABS 1 tab po qd LORATADINE 49758211550 No Longer Active Vishal Hui MD Active VERAPAMIL HCL ER 180 MG CR-TABS 1 tab po bid VERAPAMIL HCL 92767265533 No Longer Active Vishal Hui MD Active MIRALAX POWD 1 capfull once daily POLYETHYLENE GLYCOL 3350 55796285115 No Longer Active Vishal Hui MD Active PREDNISONE 20 MG TABS 1 tab po qd PREDNISONE 60926505298 No Longer Active Renzo Thornton DO Active LEVOFLOXACIN 500 MG TABS 1 tab po qd LEVOFLOXACIN 63534646460 No Longer Active Renzo Thornton DO Active BUSPIRONE HCL 15 MG TABS 1 tab po TID BUSPIRONE HCL 27452467384 No Longer Active Renzo Thornton DO Active BENZTROPINE MESYLATE 1 MG TABS 1 tab po qd BENZTROPINE MESYLATE 93024049180 No Longer Active Renzo Thornton DO Active ATENOLOL 25 MG TABS 1 tab po qd ATENOLOL 93694274948 No Longer Active Renzo Thornton DO Active ESCITALOPRAM OXALATE 20 MG TABS 1 tab po qd ESCITALOPRAM OXALATE 68425463666 No Longer Active Renzo Thornton DO Active ADVAIR DISKUS 250-50 MCG/DOSE AEPB 1 puff BID FLUTICASONE-SALMETEROL 68775199429 No Longer Active Renzo Thornton DO Active PREDNISONE 20 MG TAB 2 tabs daily for 3 days, 1 tab daily for 3 days, 1/2 tab daily for 2 days PREDNISONE 44513404395 No Longer Active Vishal Hui MD Active CEFDINIR 300 MG CAPS by mouth twice a day CEFDINIR 73293207949 No Longer Active Vishal Hui MD Active LANSOPRAZOLE 30 MG CPDR 1 cap po qd LANSOPRAZOLE 24680411128 No Longer Active Vishal Hui MD Active BACLOFEN 20 MG TABS 1 tab po tid BACLOFEN 40148645047 No Longer Active Vishal Hui MD Active ADVAIR DISKUS 250-50 MCG/DOSE AEPB 1 puff BID ADVAIR DISKUS 250-50 MCG/DOSE AEPB FLUTICASONE-SALMETEROL Inactive ESCITALOPRAM OXALATE 20 MG TABS 1 tab po qd ESCITALOPRAM OXALATE 20 MG TABS 358126 ESCITALOPRAM OXALATE Inactive ATENOLOL 25 MG TABS 1 tab po qd ATENOLOL 25 MG TABS 231536 ATENOLOL Inactive BENZTROPINE MESYLATE 1 MG TABS 1 tab po qd BENZTROPINE MESYLATE 1 MG TABS 138204 BENZTROPINE MESYLATE Inactive BUSPIRONE HCL 15 MG TABS 1 tab po TID BUSPIRONE HCL 15 MG TABS 151820 BUSPIRONE HCL Inactive LEVOFLOXACIN 500 MG TABS 1 tab po qd LEVOFLOXACIN 500 MG TABS 084767 LEVOFLOXACIN Inactive PREDNISONE 20 MG TABS 1 tab po qd PREDNISONE 20 MG TABS 094036 PREDNISONE Inactive MIRALAX POWD 1 capfull once daily MIRALAX POWD 514173 POLYETHYLENE GLYCOL 3350 Inactive VERAPAMIL HCL ER 180 MG CR-TABS 1 tab po bid VERAPAMIL HCL ER 180 MG CR-TABS VERAPAMIL HCL Inactive LORATADINE 10 MG TABS 1 tab po qd LORATADINE 10 MG TABS 906237 LORATADINE Inactive LYRICA 50 MG CAPS 1 tab po TID LYRICA 50 MG CAPS PREGABALIN Inactive ZALEPLON 10 MG CAPS 1 cap po every other night ZALEPLON 10 MG CAPS 121482 ZALEPLON Inactive SAPHRIS 5 MG SUBL 1 tab po qd SAPHRIS 5 MG SUBL ASENAPINE MALEATE Inactive TRAZODONE HCL 50 MG TABS 1/2 tab po qd prn for anxiety TRAZODONE HCL 50 MG TABS 658922 TRAZODONE HCL Inactive LATUDA 20 MG TABS Take one by mouth daily LATUDA 20 MG TABS LURASIDONE HCL Inactive LISINOPRIL 20 MG TABS 1 tab po qd LISINOPRIL 20 MG TABS 851271 LISINOPRIL Inactive SAPHRIS 10 MG SUBL 1 [...] twice daily BACTRIM DS 800-160 MG TAB 510488 TRIMETHOPRIM-SULFAMETHOXAZOLE Inactive MULTIVITAMINS CAPS Take one by mouth daily MULTIVITAMINS CAPS MULTIPLE VITAMIN Inactive MELATONIN 3 MG CAPS 2 po q hs MELATONIN 3 MG CAPS 002107 MELATONIN Inactive KEFLEX 500 MG ORAL CAPS 1 cap QID by mouth KEFLEX 500 MG ORAL CAPS 062409 CEPHALEXIN Inactive CLINDAMYCIN HCL 150 MG CAPS 1 four times a day CLINDAMYCIN HCL 150 MG CAPS 509317 CLINDAMYCIN HCL Inactive DIFLUCAN 150 MG TAB 1 tablet by mouth daily DIFLUCAN 150 MG TAB 505679 FLUCONAZOLE Inactive PROZAC 20 MG CAP Take one by mouth daily PROZAC 20 MG CAP 847412 FLUOXETINE HCL Inactive IBUPROFEN 600 MG TAB 1 po TID PRN IBUPROFEN 600 MG TAB 745104 IBUPROFEN Inactive VYVANSE 40 MG CAPS 1 daily, VYVANSE 40 MG CAPS LISDEXAMFETAMINE DIMESYLATE Inactive TRAZODONE HCL 100 MG TAB take 1 at bedtime TRAZODONE HCL 100 MG TAB 497660 TRAZODONE HCL Inactive AMITRIPTYLINE HCL 100 MG TAB one at hs AMITRIPTYLINE HCL 100 MG TAB 715821 AMITRIPTYLINE HCL Inactive AMLODIPINE BESYLATE 5 MG TABS 1 tablet by mouth daily AMLODIPINE BESYLATE 5 MG TABS 564418 AMLODIPINE BESYLATE Inactive LATUDA 80 MG TABS Take one by mouth daily LATUDA 80 MG TABS LURASIDONE HCL Inactive SAPHRIS 5 MG SUBL 1 po bid SAPHRIS 5 MG SUBL ASENAPINE MALEATE Inactive PREDNISONE 20 MG TAB 2 tabs daily for 4 days, 1 tab daily for 4 days, 1/2 tab daily for 4 days PREDNISONE 20 MG TAB 097575 PREDNISONE Inactive AMBIEN 5 MG ORAL TABS 1 tab at bedtime AMBIEN 5 MG ORAL TABS 004753 ZOLPIDEM TARTRATE Inactive PROZAC 20 MG ORAL CAPS 1 tab daily PROZAC 20 MG ORAL CAPS 078555 FLUOXETINE HCL Inactive ABILIFY 15 MG ORAL TABS 1 tab daily ABILIFY 15 MG ORAL TABS 752338 ARIPIPRAZOLE Inactive METOPROLOL TARTRATE 50 MG TAB 1 po bid METOPROLOL TARTRATE 50 MG TAB 112305 METOPROLOL TARTRATE Inactive TRAMADOL HCL 50 MG TABS 1-2 po TID PRN Pain TRAMADOL HCL 50 MG TABS 908961 TRAMADOL HCL Inactive PIROXICAM 20 MG CAPS 1 cap po qd PRN Pain PIROXICAM 20 MG CAPS 413016 PIROXICAM Inactive MINIPRESS 2 MG CAPS 4 cap po at night MINIPRESS 2 MG CAPS 420299 PRAZOSIN HCL Inactive MIRALAX PACK 1 po qd PRN Constipation MIRALAX PACK 215347 POLYETHYLENE GLYCOL 3350 Inactive METOPROLOL TARTRATE 25 MG ORAL TABS 1/2 tablet twice daily for heart rate and blood pressure METOPROLOL TARTRATE 25 MG ORAL TABS 667826 METOPROLOL TARTRATE Inactive VALIUM 5 MG TAB Take 1-2 tablets daily VALIUM 5 MG TAB 281817 DIAZEPAM Inactive CEFDINIR 300 MG CAPS by mouth twice a day CEFDINIR 300 MG CAPS 710374 CEFDINIR Inactive PREDNISONE 20 MG TAB 2 tabs daily for 3 days, 1 tab daily for 3 days, 1/2 tab daily for 2 days PREDNISONE 20 MG TAB 702539 PREDNISONE Inactive BACTRIM DS 800-160 MG TABS 1 po BID x 7 days BACTRIM DS 800-160 MG TABS 19820521 SULFAMETHOXAZOLE-TRIMETHOPRIM Inactive DIFLUCAN 150 MG TABS 1 pill every other day x 2 doses DIFLUCAN 150 MG TABS 554728 FLUCONAZOLE Inactive BACTRIM DS 800-160 MG TABS 1 pill by mouth twice daily BACTRIM DS 800-160 MG TABS 19820521 SULFAMETHOXAZOLE-TRIMETHOPRIM Inactive KEFLEX 500 MG CAP 1 po TID x 10 days KEFLEX 500 MG CAP 811580 CEPHALEXIN Inactive Advance Directives Directive Description Start [...] % 11.6-14.8 platelet count 394 10^3/MM^3 10*3/mm3 287-242 7552/01/11 leukocyte count, blood 13.8 10^3/MM^3 10*3/mm3 4.6-10.2 [...] Panel - Chemistry sodium, serum 139 mmol/L 853-474 6769/12/03 carbon dioxide, venous blood 28.5 mmol/L 21.0-32.0 [...] 5.5 % 4.3-6.0 cholesterol, serum 159 mg/dL 196-388 7676/12/03 triglyceride, serum, fasting 118 mg/dL 30-200 HDL [...] Panel - Chemistry sodium, serum 139 mmol/L 410-309 8477/01/11 carbon dioxide, venous blood 26.6 mmol/L 21.0-32.0 potassium, serum 4.1 mmol/L 3.5-5.2 chloride, serum 100 mmol/L 98-107 blood glucose 86 mg/dL 65-110 urea nitrogen, blood 16 mg/dL 7-18 creatinine, serum 1.00 mg/dL 0.55-1.30 alanine aminotransferase (SGPT), serum 48 U/L aspartate aminotransferase (SGOT), serum 17 U/L 15-37 calcium, serum 9.1 mg/dL 8.5-10.1 bilirubin, serum, total 0.40 mg/dL 0.00-1.00 sodium, serum 139 mmol/L 293-338 6293/12/22 carbon dioxide, venous blood 26.8 mmol/L 21.0-32.0 potassium, serum 4.2 mmol/L 3.5-5.2 chloride, serum 103 mmol/L 98-107 blood glucose 115 mg/dL 65-110 urea nitrogen, blood 20 mg/dL 7-18 creatinine, serum 0.90 mg/dL 0.55-1.30 alanine aminotransferase (SGPT), serum 38 U/L -78 aspartate aminotransferase (SGOT), serum 19 U/L 15-37 calcium, serum 8.6 mg/dL 8.5-10.1 bilirubin, serum, total 0.30 mg/dL 0.00-1.00 sodium, serum 142 mmol/L 929-066 7456/06/08 carbon dioxide, venous blood 27.6 mmol/L 21.0-32.0 potassium, serum 4.0 mmol/L 3.5-5.2 chloride, serum 105 mmol/L 98-107 blood glucose 95 mg/dL 65-110 urea nitrogen, blood 8 mg/dL 7-18 creatinine, serum 0.75 mg/dL 0.55-1.30 alanine aminotransferase (SGPT), serum 49 U/L - aspartate aminotransferase (SGOT), serum 28 U/L 15-37 calcium, serum 9.4 mg/dL 8.5-10.1 bilirubin, serum, total 0.30 mg/dL 0.00-1.00 sodium, serum 140 mmol/L 335-647 0541/08/08 carbon dioxide, venous blood 33.7 mmol/L 21.0-32.0 [...] Rate - Chemistry sodium, serum 139 mmol/L 206-016 2415/12/11 carbon dioxide, venous blood 25.4 mmol/L 21.0-32.0 [...] color Yellow Colorless;Lightyellow;Straw;Yellow appearance, urine Clear Clear Office Visit: Consult for Painful Lipoma - Chemistry cholesterol, target level 200 mg/dL triglyceride, target level 200 mg/dL HDL cholesterol, serum, target level 35 mg/dL LDL target level 100 mg/dL Encounters Code Encounter Date Provider Facility CPT-38098 Level 3 Est. Patient 14:27:52 CDT Neeraj Collins MD [facility] CPT-64617 Level 3 Est. Patient 08:56:03 CDT 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 [facility] CPT-40809 Level 4 Est. Patient 12:11:48 CDT Fabiola Johnson [facility] CPT-84219 Level 3 New Patient 16:53:37 CDT Albert Caldera MD [facility] CPT-58792 Level 3 Est. Patient 11:25:49 CDT Renzo Thornton DO [facility] CPT-01863 Level 3 Est. Patient 15:22:01 CDT Ahmet Carbajal MD [facility] CPT-84567 Level 4 Est. Patient 09:00:51 HANDLE ROUNDER OPERATOR Vishal Hui MD [facility] CPT-59862 Level 3 Est. Patient 11:37:33 HANDLE ROUNDER OPERATOR Vishal Hui MD [facility] CPT-70416 Level 3 Est. Patient 08:41:09 HANDLE ROUNDER OPERATOR Vishal Hui MD [facility] CPT-19824 Level 4 Est. Patient 10:19:35 HANDLE ROUNDER OPERATOR Vishal Hui MD [facility] CPT-94203 Level 3 Est. Patient 13:35:45 CDT Vishal Hui MD [facility] CPT-06493 Level 4 Est. Patient 10:08:37 CDT Vishal Hui MD [facility] CPT-54449 Level 3 Est. Patient 11:22:10 CDT Vishal Hui MD [facility] CPT-54253 Level 3 Est. Patient 11:03:32 CDT Sahara Rodriguez MD [facility] CPT-71949 Level 3 Est. Patient 09:41:35 CDT Vishal Hui MD [facility] CPT-20763 Level 3 Est. Patient 12:00:41 CDT Neeraj Collins MD [facility] CPT-83927 Level 3 Est. Patient 09:16:24 CDT Vishal Hui MD [facility] CPT-99486 Level 4 Est. Patient 13:59:09 CDT Neeraj Collins MD [facility] CPT-31701 Level 3 Est. Patient 15:19:43 CDT Renzo Thornton DO [facility] CPT-30260 Level 3 Est. Patient 18:10:26 CDT Sahara Rodriguez MD [facility]-17896 Level 3 Est. Patient 14:49:50 CDT Vishal Hui MD [facility] CPT-33289 Level 4 Est. Patient 18:41:46 CDT Neeraj Collins MD [facility] CPT-95683 Level 4 Est. Patient 09:18:38 HANDLE ROUNDER OPERATOR Vishal Hui MD [facility] CPT-83655 Level 3 Est. Patient 14:43:55 HANDLE ROUNDER OPERATOR Vishal Hui MD [facility] CPT-29531 Level 3 Est. Patient 15:26:33 HANDLE ROUNDER OPERATOR Sahara Rodriguez MD [facility] CPT-90802 Level 3 Est. Patient 10:32:14 HANDLE ROUNDER OPERATOR Vishal Hui MD [facility] CPT-76245 Level 3 Est. Patient 15:12:52 HANDLE ROUNDER OPERATOR Vishal Hui MD [facility] CPT-88915 Level 4 Est. Patient 09:19:27 CDT Vishal Hui MD [facility] CPT-44699 Level 3 Est. Patient 15:53:00 CDT [facility] CPT-75671 Level 3 Est. Patient 15:50:30 CDT [facility] CPT-16103 Level 3 Est. Patient 16:55:24 CDT Vishal Hui MD [facility] Procedures Code Procedure Name Date Entry Date Standard Description CPT-25424 Abx/Therapy Injection 13:29:56 CDT CPT-88897 Abx/Therapy Injection 08:36:16 CDT CPT-81676 Wet Mount - LAB USE ONLY 17:44:58 CDT CPT-62462 UA w micro - LAB USE ONLY 17:44:58 CDT CPT-87334 CMP - LAB USE ONLY 17:44:58 CDT CPT-61510 Venipuncture Draw Fee 17:44:58 CDT CPT-83554 Cervical Min 4V - XRAY USE ONLY 09:01:40 CDT CPT-27925 Chest 2V Frontal and Lat - XRAY USE ONLY 11:06:31 CDT CPT-79286 EKG Trac and Interp - XRAY USE ONLY 11:31:43 CDT 08/26 CPT-J3420 Vitamin B12 1000mcg (Cyanocobalamin) 08:10:26 HANDLE ROUNDER OPERATOR 04/12 CPT-26647 Abx/Therapy Injection 08:10:26 HANDLE ROUNDER OPERATOR CPT-G0438 Initial Annual Wellness Exam 19:01:01 HANDLE ROUNDER OPERATOR CPT-J3420 Vitamin B12 1000mcg (Cyanocobalamin) 16:57:46 CDT 08/14 CPT-63894 Recombivax HB Injection Suspension 5 MCG/0.5ML 08:37:50 HANDLE ROUNDER OPERATOR CPT-49623 Immunization Single Admin 08:37:50 HANDLE ROUNDER OPERATOR CPT-J3420 Vitamin B12 1000mcg (Cyanocobalamin) 08:32:16 HANDLE ROUNDER OPERATOR 03/11 CPT-35785 Abx/Therapy Injection 08:32:16 HANDLE ROUNDER OPERATOR CPT-39783 Chest 2V Frontal and Lat 11:46:38 HANDLE ROUNDER OPERATOR CPT-66053 Venipuncture Draw Fee 09:12:45 HANDLE ROUNDER OPERATOR CPT-J3420 Vitamin B12 1000mcg (Cyanocobalamin) 08:50:15 HANDLE ROUNDER OPERATOR 02/08 CPT-87886 Abx/Therapy Injection 08:50:15 HANDLE ROUNDER OPERATOR CPT-Cryo Cryotherapy 10:19:35 HANDLE ROUNDER OPERATOR CPT-000 Give Appropriate Flu Vaccine 09:22:16 CDT CPT-J3420 Vitamin B12 1000mcg (Cyanocobalamin) 19:08:57 CDT 01/11 CPT-60673 Abx/Therapy Injection 19:08:57 CDT CPT-J3420 Vitamin B12 1000mcg (Cyanocobalamin) 08:19:08 CDT 12/11 CPT-27908 Abx/Therapy Injection 08:19:08 CDT CPT-J3420 Vitamin B12 1000mcg (Cyanocobalamin) 14:48:00 CDT 11/09 CPT-68650 Abx/Therapy Injection 14:47:59 CDT CPT-J3420 Vitamin B12 1000mcg (Cyanocobalamin) 08:34:04 CDT 10/09 CPT-62633 Abx/Therapy Injection 08:34:04 CDT CPT-J3420 Vitamin B12 1000mcg (Cyanocobalamin) 09:18:52 CDT 09/11 CPT-84989 Abx/Therapy Injection 09:18:52 CDT CPT-J3420 Vitamin B12 1000mcg (Cyanocobalamin) 08:35:44 CDT 09/04 CPT-25252 Abx/Therapy Injection 08:35:44 CDT CPT-80335 Immunization Single Admin 11:07:16 CDT CPT-71091 Hepatitis B adult IM 11:07:16 CDT CPT-J3420 Vitamin B12 1000mcg (Cyanocobalamin) 11:00:49 CDT 08/28 CPT-J1040 Depo Medrol 80 mg (Methyl Prednisolone Acetate) 11:00: 49 CDT CPT-73856 Abx/Therapy Injection 11:00:49 CDT CPT-J1040 Depo Medrol 80 mg (Methyl Prednisolone Acetate) 09:16: 23 CDT CPT-J3420 Vitamin B12 1000mcg (Cyanocobalamin) 08:27:05 CDT 08/20 CPT-27599 Abx/Therapy Injection 08:27:05 CDT CPT-64760 Recombivax HB Injection Suspension 5 MCG/0.5ML 10:00:41 CDT CPT-79212 Administration single or combination vaccine inc oral 10 :00:41 CDT CPT-41302 Sono transvag pelvis non OB uterus ovaries cervix 16:36: 57 CDT CPT-47360 LS spine comp w obliq 09:50:55 HANDLE ROUNDER OPERATOR CPT-72709 Abd compl w upright 09:50:55 HANDLE ROUNDER OPERATOR CPT-J1100 Decadron 4mg (Dexamethasone) 15:51:24 HANDLE ROUNDER OPERATOR CPT-J1030 Depo Medrol 40 mg (Methyl Prednisolone Acetate) 15:51: 24 HANDLE ROUNDER OPERATOR CPT-64889 Abx/Therapy Injection 15:51:24 HANDLE ROUNDER OPERATOR CPT-J1100 Decadron 4mg (Dexamethasone) 15:26:33 HANDLE ROUNDER OPERATOR CPT-J1030 Depo Medrol 40 mg (Methyl Prednisolone Acetate) 15:26: 33 HANDLE ROUNDER OPERATOR CPT-42747 Sono retroperitoneal complete kidneys and bladder 17:15: 30 CDT CPT-20647 Abd compl w upright 16:09:25 CDT CPT-J1100 Decadron 8mg (Dexamethasone) 17:07:57 CDT CPT-42824 Abx/Therapy Injection 17:07:57 CDT CPT-J1100 Decadron 8mg (Dexamethasone) 16:55:24 CDT CPT-73957 Chest 2V Frontal and Lat 16:32:44 CDT
--- OUTSIDE RECORDS SUMMARY | 2016-11-04 12:14 | XMS REPORT | Clinical Summary ---
Author Author Admin, BRIELLEE Organization [employer] Address Unknown Phone Unavailable Allergies, Adverse Reactions, [...] sites Morbid obesity 278.01 Active Juliet Kimbrough [employer]ER Morbid obesity 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 Active Juleit Kimbrough APRN Dependence on other enabling machines [...] breath Nocturnal hypoxia 799.02 Active Fabiola Johnson [employer] Hypoxemia Neck pain 723.1 Resolved Vishal Hui [...] fibula Vaginal discharge 623.5 Active 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 [employer] Leukorrhea, not specified as infective DYSURIA 788.1 [...] TABS 1/2-1 tab TID PRN TRAMADOL HCL 36302798924 Active Lynda Juarezephraim SSIS DEVELOPER Active PROAIR HFA 108 (90 BASE) MCG/ACT AERS 2 puffs four times a day as needed 2015 ALBUTEROL SULFATE 63185224738 Active Ahmet Carbajal MD Active EQ NICOTINE 21 MG/24HR TRANS PT24 Apply daily to stop smoking NICOTINE 49894013786 Active Ahmet Carbajal MD Active BACTRIM DS 800-160 MG TABS 1 twice a day SULFAMETHOXAZOLE- TRIMETHOPRIM 55271082576 Active Ahmet Carbajal MD Active ADVAIR DISKUS 250-50 MCG/DOSE INH AEPB 1 puff twice a day for asthma FLUTICASONE-SALMETEROL 06877051308 Active Ahmet Carbajal MD Active MONISTAT 7 COMBO PACK WOODROW 100 & 2 MG-% (9GM) VAG KIT 1 applicatorful per vagina q pm x 7 MICONAZOLE NITRATE 37807307929 No Longer Active Ahmet Carbajal MD Active FLAGYL 500 MG TAB 1 tablet by mouth bid METRONIDAZOLE 35328349641 No Longer Active Ahmet Carbajal MD Active OXYCODONE HCL ER 10 MG ORAL T12A 1/2 tab by mouth every 4 hours prn OXYCODONE HCL 75755076150 No Longer Active Ahmet Carbajal MD Active METHYLPREDNISOLONE 4 MG ORAL TABS po daily METHYLPREDNISOLONE 61201991900 No Longer Active Ahmet Carbajal MD Active LEVOFLOXACIN 500 MG ORAL TABS po daily LEVOFLOXACIN 32795586569 No Longer Active Ahmet Carbajal MD Active VIIBRYD 10 MG ORAL TABS Take 1 tablet once a day VILAZODONE HCL 73946263973 No Longer Active Ahmet Carbajal MD Active TOPAMAX 50 MG ORAL TABS 1 tab twice daily TOPIRAMATE 39925256531 No Longer Active Ahmet Carbajal MD Active DICLOFENAC SODIUM 50 MG TBEC 1 tablet by mouth four times daily PRN Pain 2015 DICLOFENAC SODIUM 98827677451 No Longer Active Ahmet Carbajal MD Active ADZENYS XR-ODT 6.3 MG ORAL TBED 1 tab po daily for ADHD AMPHETAMINE 88851035316 No Longer Active Ahmet Carbajal MD Active CHANTIX 1 MG TABS 1 twice a day to help quit smoking VARENICLINE TARTRATE 85871144737 No Longer Active Dipika Burgos MD Active CHANTIX STARTING MONTH EARNEST 0.5 MG X 11 & 1 MG X 42 TABS take as directed 2015 VARENICLINE TARTRATE 00404926548 No Longer Active Dipika Burgos MD Active TESSALON PERLES 100 MG CAP 1 to 2 tablets by mouth 3 times daily as needed for cough BENZONATATE 71342224146 No Longer Active 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 [employer]ER Active GERALDOLIOMAR MAINTENA 400 MG IM SUSR 400mg injection every 26 days ARIPIPRAZOLE 03544187144 Active Silvia Casey SSIS DEVELOPER Active IMITREX 50 MG ORAL TABS 0.5 po x 1 PRN Headache. May repeat dose x 1 in 2 hours if needed SUMATRIPTAN SUCCINATE 24775998967 Active Vishal Hui MD Active HYDROCODONE-ACETAMINOPHEN 5-325 MG TABS 1 to 2 four times a day as needed for pain use until can be seen by specialist HYDROCODONE- ACETAMINOPHEN 65925230175 No Longer Active Vishal Hui MD Active PROAIR HFA 108 (90 BASE) MCG/ACT AERS 2 puffs four times a day as needed 2015 ALBUTEROL SULFATE 46161424755 No Longer Active Vishal Hui MD Active PREDNISONE 20 MG TABS 2 daily for 5 days then 1 daily for 5 days PREDNISONE 09462119529 No Longer Active Vishal Hui MD Active ZITHROMAX Z-EARNEST 250 MG TABS 2 today and then 1 daily for 4 days AZITHROMYCIN 42523934709 No Longer Active Vishal Hui MD Active DICLOFENAC POTASSIUM TABS Take 1 tablet twice a day (pt. is not sure of the dose.) DICLOFENAC POTASSIUM TABS 92973392623 No Longer Active Vishal Hui MD Active VERAPAMIL HCL ER 120 MG ORAL CR-TABS Take 1 tablet by mouth twice a day. VERAPAMIL HCL 22708719711 Active Vishal Hui MD Active FLAGYL 500 MG TAB 1 tablet by mouth bid METRONIDAZOLE 43532345263 No Longer Active Vishal Hui MD Active FLUTICASONE PROPIONATE 50 MCG/ACT SUSP 2 sprays each nostril daily before bed. FLUTICASONE PROPIONATE 67147543824 Active Fabiola Johnson APRN Active BENADRYL 25 MG CAP 4 po at bedtime for insomnia DIPHENHYDRAMINE HCL 33627813133 Active Fabiola Johnson APRN Active KLONOPIN 1 MG ORAL TABS 1 tab po TID CLONAZEPAM 49018308996 Active Fabiola Johnson APRN Active VALIUM 5 MG TAB Take 1-2 tablets daily DIAZEPAM 26551803529 No Longer Active Fabiola Johnson APRN Active METOPROLOL TARTRATE 25 MG ORAL TABS 1/2 tablet twice daily for heart rate and blood pressure METOPROLOL TARTRATE 74069124802 No Longer Active Fabiola Johnson APRN Active MIRALAX ORAL POWD 17GMS DAILY IN WATER POLYETHYLENE GLYCOL 3350 74349859366 Active Vishal Hui MD Active MIRALAX PACK 1 po qd PRN Constipation POLYETHYLENE GLYCOL 3350 66024994396 No Longer Active Ahmet Carbajal MD Active MINIPRESS 2 MG CAPS 4 cap po at night PRAZOSIN HCL 54071903352 No Longer Active Ahmet Carbajal MD Active PIROXICAM 20 MG CAPS 1 cap po qd PRN Pain PIROXICAM 74992943734 No Longer Active Ahmet Carbajal MD Active TRAMADOL HCL 50 MG TABS 1-2 po TID PRN Pain TRAMADOL HCL 09658395242 No Longer Active Ahmet Carbajal MD Active METOPROLOL TARTRATE 50 MG TAB 1 po bid METOPROLOL TARTRATE 65530727168 No Longer Active Ahmet Carbajal MD Active ABILIFY 15 MG ORAL TABS 1 tab daily ARIPIPRAZOLE 97971614883 No Longer Active Ahmet Carbajal MD Active PROZAC 20 MG ORAL CAPS 1 tab daily FLUOXETINE HCL 13084962673 No Longer Active Ahmet Carbajal MD Active AMBIEN 5 MG ORAL TABS 1 tab at bedtime ZOLPIDEM TARTRATE 24044105208 No Longer Active Ahmet Carbajal MD Active PREDNISONE 20 MG TAB 2 tabs daily for 4 days, 1 tab daily for 4 days, 1/2 tab daily for 4 days PREDNISONE 59217501907 No Longer Active Ahmet Carbajal MD Active KEFLEX 500 MG CAP 1 po TID x 10 days CEPHALEXIN 05854575642 No Longer Active Vishal Hui MD Active SAPHRIS 5 MG SUBL 1 po bid ASENAPINE MALEATE 80808954571 No Longer Active 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 APRN Active LATUDA 80 MG TABS Take one by mouth daily LURASIDONE HCL 89460808925 No Longer Active Jillina Frazelephraim [employer] ASSEMBLER Active AMLODIPINE BESYLATE 5 MG TABS 1 tablet by mouth daily AMLODIPINE BESYLATE 25107261339 No Longer Active Jillina Fralebron [employer]S ASSEMBLER Active AMITRIPTYLINE HCL 100 MG TAB one at hs AMITRIPTYLINE HCL 56689763070 No Longer Active Vishal Hui MD Active TRAZODONE HCL 100 MG TAB take 1 at bedtime TRAZODONE HCL 22678821600 No Longer Active Vishal Hui MD Active VYVANSE 40 MG CAPS 1 daily, LISDEXAMFETAMINE DIMESYLATE 48056826688 No Longer Active Vishal Hui MD Active IBUPROFEN 600 MG TAB 1 po TID PRN IBUPROFEN 02444534388 No Longer Active Vishal Hui MD Active PROZAC 20 MG CAP Take one by mouth daily FLUOXETINE HCL 88803096811 No Longer Active Vishal Hui MD Active ZOFRAN 4 MG TABS 1 po q6hr PRN Nausea ONDANSETRON HCL Active Vishal Hui MD Active BACTRIM DS 800-160 MG TABS 1 pill by mouth twice daily SULFAMETHOXAZOLE-TRIMETHOPRIM 19892494920 No Longer Active Sahara Rodriguez MD PhD Active DIFLUCAN 150 MG TAB 1 tablet by mouth daily FLUCONAZOLE 16191925553 No Longer Active Vishal Hui MD Active TIZANIDINE HCL 4 MG TABS 1 po q6hr PRN Muscle Spasm/Back Pain TIZANIDINE HCL 32975038509 Active Vishal Hui MD Active CLINDAMYCIN HCL 150 MG CAPS 1 four times a day CLINDAMYCIN HCL 52656901961 No Longer Active Neeraj Collins MD Active KEFLEX 500 MG ORAL CAPS 1 cap QID by mouth CEPHALEXIN 13100940045 No Longer Active Neeraj Collins MD Active DIFLUCAN 150 MG TABS 1 pill every other day x 2 doses FLUCONAZOLE 13918167835 No Longer Active Sahara Rodriguez MD PhD Active MELATONIN 3 MG CAPS 2 po q hs MELATONIN 57559353329 No Longer Active Sahara Rodriguez MD PhD Active MULTIVITAMINS CAPS Take one by mouth daily MULTIPLE VITAMIN 25840309732 No Longer Active Sahara Rodriguez MD PhD Active BACTRIM DS 800-160 MG TAB 1 tab by mouth twice daily TRIMETHOPRIM-SULFAMETHOXAZOLE 01948945880 No Longer Active Sahara Rodriguez MD PhD Active [facility] PROBIOTIC ORAL CHEW 2 daily po PROBIOTIC PRODUCT 14181418332 No Longer Active Sahara Rodriguez MD PhD Active BACTRIM DS 800-160 MG TABS 1 po BID x 7 days SULFAMETHOXAZOLE-TRIMETHOPRIM 35465111126 No Longer Active Vishal Hui MD Active CHANTIX STARTING MONTH EARNEST 0.5 MG X 11 & 1 MG X 42 TABS 0.5mg daily for 3 days , then 0.5mg BID for 4 days, then 1mg BID VARENICLINE TARTRATE 25954879659 No Longer Active TAMARA Gray Active VERAPAMIL HCL CR 120 MG TAB CR 1 po bid VERAPAMIL HCL 30226067946 No Longer Active Vishal Hui MD Active METOPROLOL SUCCINATE 50 MG TB24 1 tablet by mouth daily METOPROLOL SUCCINATE 44831346607 No Longer Active Vishal Hui MD Active SAPHRIS 10 MG SUBL 1 tab po bid ASENAPINE MALEATE 85838345361 No Longer Active Vishal Hui MD Active LISINOPRIL 20 MG TABS 1 tab po qd LISINOPRIL 87914569611 No Longer Active Vishal Hui MD Active LATUDA 20 MG TABS Take one by mouth daily LURASIDONE HCL 52845748472 No Longer Active Vishal Hui MD Active TRAZODONE HCL 50 MG TABS 1/2 tab po qd prn for anxiety TRAZODONE HCL 47656253568 No Longer Active Vishal Hui MD Active OMEPRAZOLE 20 MG TBEC 1 po q a.m. 30min prior to first food intake OMEPRAZOLE 17912288945 Active Vishal Hui MD Active RANITIDINE HCL 150 MG CAPS 1 twice a day RANITIDINE HCL 91873292006 Active 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 [employer] ASSEMBLER Active LINZESS 290 MCG CAPS Take one by mouth daily LINACLOTIDE 21510636522 No Longer Active Vishal Hui MD Active SAPHRIS 5 MG SUBL 1 tab po qd ASENAPINE MALEATE 19494763156 No Longer Active Vishal Hui MD Active ZALEPLON 10 MG CAPS 1 cap po every other night ZALEPLON 91856990623 No Longer Active Vishal Hui MD Active LYRICA 50 MG CAPS 1 tab po TID PREGABALIN 23135712103 No Longer Active Vishal Hui MD Active LORATADINE 10 MG TABS 1 tab po qd LORATADINE 05735338038 No Longer Active Vishal Hui MD Active VERAPAMIL HCL ER 180 MG CR-TABS 1 tab po bid VERAPAMIL HCL 42430821141 No Longer Active Vishal uHi MD Active MIRALAX POWD 1 capfull once daily POLYETHYLENE GLYCOL 3350 56122348039 No Longer Active Vishal Hui MD Active PREDNISONE 20 MG TABS 1 tab po qd PREDNISONE 70616501878 No Longer Active Renzo Thornton DO Active LEVOFLOXACIN 500 MG TABS 1 tab po qd LEVOFLOXACIN 98783186345 No Longer Active Renzo Thornton DO Active BUSPIRONE HCL 15 MG TABS 1 tab po TID BUSPIRONE HCL 12343022353 No Longer Active Renzo Thornton DO Active BENZTROPINE MESYLATE 1 MG TABS 1 tab po qd BENZTROPINE MESYLATE 68743666514 No Longer Active Renzo Thornton DO Active ATENOLOL 25 MG TABS 1 tab po qd ATENOLOL 14515969559 No Longer Active Renzo Thornton DO Active ESCITALOPRAM OXALATE 20 MG TABS 1 tab po qd ESCITALOPRAM OXALATE 64624599942 No Longer Active Renzo Thornton DO Active ADVAIR DISKUS 250-50 MCG/DOSE AEPB 1 puff BID FLUTICASONE-SALMETEROL 91471439517 No Longer Active Renzo Thornton DO Active PREDNISONE 20 MG TAB 2 tabs daily for 3 days, 1 tab daily for 3 days, 1/2 tab daily for 2 days PREDNISONE 11208999432 No Longer Active Vishal Hui MD Active CEFDINIR 300 MG CAPS by mouth twice a day CEFDINIR 92166325160 No Longer Active Vishal Hui MD Active LANSOPRAZOLE 30 MG CPDR 1 cap po qd LANSOPRAZOLE 36634579112 No Longer Active Vishal Hui MD Active BACLOFEN 20 MG TABS 1 tab po tid BACLOFEN 80924363709 No Longer Active Vishal Hui MD Active ADVAIR DISKUS 250-50 MCG/DOSE AEPB 1 puff BID ADVAIR DISKUS 250-50 MCG/DOSE AEPB FLUTICASONE-SALMETEROL Inactive ESCITALOPRAM OXALATE 20 MG TABS 1 tab po qd ESCITALOPRAM OXALATE 20 MG TABS 304356 ESCITALOPRAM OXALATE Inactive ATENOLOL 25 MG TABS 1 tab po qd ATENOLOL 25 MG TABS 735719 ATENOLOL Inactive BENZTROPINE MESYLATE 1 MG TABS 1 tab po qd BENZTROPINE MESYLATE 1 MG TABS 122885 BENZTROPINE MESYLATE Inactive BUSPIRONE HCL 15 MG TABS 1 tab po TID BUSPIRONE HCL 15 MG TABS 902600 BUSPIRONE HCL Inactive LEVOFLOXACIN 500 MG TABS 1 tab po qd LEVOFLOXACIN 500 MG TABS 292374 LEVOFLOXACIN Inactive PREDNISONE 20 MG TABS 1 tab po qd PREDNISONE 20 MG TABS 614869 PREDNISONE Inactive MIRALAX POWD 1 capfull once daily MIRALAX POWD 255018 POLYETHYLENE GLYCOL 3350 Inactive VERAPAMIL HCL ER 180 MG CR-TABS 1 tab po bid VERAPAMIL HCL ER 180 MG CR-TABS VERAPAMIL HCL Inactive LORATADINE 10 MG TABS 1 tab po qd LORATADINE 10 MG TABS 637193 LORATADINE Inactive LYRICA 50 MG CAPS 1 tab po TID LYRICA 50 MG CAPS PREGABALIN Inactive ZALEPLON 10 MG CAPS 1 cap po every other night ZALEPLON 10 MG CAPS 645682 ZALEPLON Inactive SAPHRIS 5 MG SUBL 1 tab po qd SAPHRIS 5 MG SUBL ASENAPINE MALEATE Inactive TRAZODONE HCL 50 MG TABS 1/2 tab po qd prn for anxiety TRAZODONE HCL 50 MG TABS 515818 TRAZODONE HCL Inactive LATUDA 20 MG TABS Take one by mouth daily LATUDA 20 MG TABS LURASIDONE HCL Inactive LISINOPRIL 20 MG TABS 1 tab po qd LISINOPRIL 20 MG TABS 303547 LISINOPRIL Inactive SAPHRIS 10 MG SUBL 1 [...] twice daily BACTRIM DS 800-160 MG TAB 697445 TRIMETHOPRIM-SULFAMETHOXAZOLE Inactive MULTIVITAMINS CAPS Take one by mouth daily MULTIVITAMINS CAPS MULTIPLE VITAMIN Inactive MELATONIN 3 MG CAPS 2 po q hs MELATONIN 3 MG CAPS 575366 MELATONIN Inactive KEFLEX 500 MG ORAL CAPS 1 cap QID by mouth KEFLEX 500 MG ORAL CAPS 511033 CEPHALEXIN Inactive CLINDAMYCIN HCL 150 MG CAPS 1 four times a day CLINDAMYCIN HCL 150 MG CAPS 19740326 CLINDAMYCIN HCL Inactive DIFLUCAN 150 MG TAB 1 tablet by mouth daily DIFLUCAN 150 MG TAB 538864 FLUCONAZOLE Inactive PROZAC 20 MG CAP Take one by mouth daily PROZAC 20 MG CAP 940330 FLUOXETINE HCL Inactive IBUPROFEN 600 MG TAB 1 po TID PRN IBUPROFEN 600 MG TAB 046267 IBUPROFEN Inactive VYVANSE 40 MG CAPS 1 daily, VYVANSE 40 MG CAPS LISDEXAMFETAMINE DIMESYLATE Inactive TRAZODONE HCL 100 MG TAB take 1 at bedtime TRAZODONE HCL 100 MG TAB 953369 TRAZODONE HCL Inactive AMITRIPTYLINE HCL 100 MG TAB one at hs AMITRIPTYLINE HCL 100 MG TAB 845026 AMITRIPTYLINE HCL Inactive AMLODIPINE BESYLATE 5 MG TABS 1 tablet by mouth daily AMLODIPINE BESYLATE 5 MG TABS 469187 AMLODIPINE BESYLATE Inactive LATUDA 80 MG TABS Take one by mouth daily LATUDA 80 MG TABS LURASIDONE HCL Inactive SAPHRIS 5 MG SUBL 1 po bid SAPHRIS 5 MG SUBL ASENAPINE MALEATE Inactive PREDNISONE 20 MG TAB 2 tabs daily for 4 days, 1 tab daily for 4 days, 1/2 tab daily for 4 days PREDNISONE 20 MG TAB 284654 PREDNISONE Inactive AMBIEN 5 MG ORAL TABS 1 tab at bedtime AMBIEN 5 MG ORAL TABS 607264 ZOLPIDEM TARTRATE Inactive PROZAC 20 MG ORAL CAPS 1 tab daily PROZAC 20 MG ORAL CAPS 935686 FLUOXETINE HCL Inactive ABILIFY 15 MG ORAL TABS 1 tab daily ABILIFY 15 MG ORAL TABS 297431 ARIPIPRAZOLE Inactive METOPROLOL TARTRATE 50 MG TAB 1 po bid METOPROLOL TARTRATE 50 MG TAB 767770 METOPROLOL TARTRATE Inactive TRAMADOL HCL 50 MG TABS 1-2 po TID PRN Pain TRAMADOL HCL 50 MG TABS 900898 TRAMADOL HCL Inactive PIROXICAM 20 MG CAPS 1 cap po qd PRN Pain PIROXICAM 20 MG CAPS 377227 PIROXICAM Inactive MINIPRESS 2 MG CAPS 4 cap po at night MINIPRESS 2 MG CAPS 483697 PRAZOSIN HCL Inactive MIRALAX PACK 1 po qd PRN Constipation MIRALAX PACK 476368 POLYETHYLENE GLYCOL 3350 Inactive METOPROLOL TARTRATE 25 MG ORAL TABS 1/2 tablet twice daily for heart rate and blood pressure METOPROLOL TARTRATE 25 MG ORAL TABS 234141 METOPROLOL TARTRATE Inactive VALIUM 5 MG TAB Take 1-2 tablets daily VALIUM 5 MG TAB 599772 DIAZEPAM Inactive FLAGYL 500 MG TAB 1 tablet by mouth bid FLAGYL 500 MG TAB 186010 METRONIDAZOLE Inactive DICLOFENAC POTASSIUM TABS Take 1 tablet twice a day (pt. is not sure of the dose.) DICLOFENAC POTASSIUM TABS DICLOFENAC POTASSIUM TABS Inactive ZITHROMAX Z-EARNEST 250 MG TABS 2 today and then 1 daily for 4 days ZITHROMAX Z-EARNEST 250 MG TABS 3893753 AZITHROMYCIN Inactive PREDNISONE 20 MG TABS 2 daily for 5 days then 1 daily for 5 days PREDNISONE 20 MG TABS 180290 PREDNISONE Inactive PROAIR HFA 108 (90 BASE) MCG/ACT AERS 2 puffs four times a day as needed 2015 PROAIR HFA 108 (90 BASE) MCG/ACT AERS ALBUTEROL SULFATE Inactive HYDROCODONE-ACETAMINOPHEN 5-325 MG TABS 1 to 2 four times a day as needed for pain use until can be seen by specialist HYDROCODONE- ACETAMINOPHEN 5-325 MG TABS 539149 HYDROCODONE-ACETAMINOPHEN Inactive TESSALON PERLES 100 MG CAP 1 to 2 tablets by mouth 3 times daily as needed for cough TESSALON PERLES 100 MG CAP 433437 BENZONATATE Inactive CHANTIX STARTING MONTH EARNEST 0.5 [...] Pain 2015 DICLOFENAC SODIUM 50 MG TBEC 365439 DICLOFENAC SODIUM Inactive TOPAMAX 50 MG ORAL TABS 1 tab twice daily TOPAMAX 50 MG ORAL TABS 459803 TOPIRAMATE Inactive VIIBRYD 10 MG ORAL TABS Take 1 tablet once a day VIIBRYD 10 MG ORAL TABS VILAZODONE HCL Inactive LEVOFLOXACIN 500 MG ORAL TABS po daily LEVOFLOXACIN 500 MG ORAL TABS 250911 LEVOFLOXACIN Inactive METHYLPREDNISOLONE 4 MG ORAL TABS po daily METHYLPREDNISOLONE 4 MG ORAL TABS 268239 METHYLPREDNISOLONE Inactive OXYCODONE HCL ER 10 MG ORAL T12A 1/2 tab by mouth every 4 hours prn OXYCODONE HCL ER 10 MG ORAL T12A OXYCODONE HCL Inactive FLAGYL 500 MG TAB 1 tablet by mouth bid FLAGYL 500 MG TAB 912911 METRONIDAZOLE Inactive MONISTAT 7 COMBO PACK WOODROW 100 & 2 MG-% (9GM) VAG KIT 1 applicatorful per vagina q pm x 7 MONISTAT 7 COMBO PACK WOODROW 100 & 2 MG-% (9GM) VAG KIT MICONAZOLE NITRATE Inactive CEFDINIR 300 MG CAPS by mouth twice a day CEFDINIR 300 MG CAPS 229655 CEFDINIR Inactive PREDNISONE 20 MG TAB 2 tabs daily for 3 days, 1 tab daily for 3 days, 1/2 tab daily for 2 days PREDNISONE 20 MG TAB 294965 PREDNISONE Inactive BACTRIM DS 800-160 MG TABS 1 po BID x 7 days BACTRIM DS 800-160 MG TABS 19820521 SULFAMETHOXAZOLE-TRIMETHOPRIM Inactive DIFLUCAN 150 MG TABS 1 pill every other day x 2 doses DIFLUCAN 150 MG TABS 384913 FLUCONAZOLE Inactive BACTRIM DS 800-160 MG TABS 1 pill by mouth twice daily BACTRIM DS 800-160 MG TABS 19820521 SULFAMETHOXAZOLE-TRIMETHOPRIM Inactive KEFLEX 500 MG CAP 1 po TID x 10 days KEFLEX 500 MG CAP 800646 CEPHALEXIN Inactive Advance Directives Directive Description Start [...] pressure, diastolic - 8462-4 92 mm[Hg] BP mncally blood pressure, systolic - 8480-6 144 mm[Hg] [...] E&M - 3141-9 288.5 [lb_av] Weight Measured Diagnostic Results Date Name [...] % 11.6-14.8 platelet count 394 10^3/MM^3 10*3/mm3 952-412 3483/01/11 leukocyte count, blood 13.8 10^3/MM^3 10*3/mm3 4.6-10.2 [...] Panel - Chemistry sodium, serum 139 mmol/L 537-080 6917/12/03 carbon dioxide, venous blood 28.5 mmol/L 21.0-32.0 [...] 5.5 % 4.3-6.0 cholesterol, serum 159 mg/dL 086-454 6404/12/03 triglyceride, serum, fasting 118 mg/dL 30-200 HDL [...] 362 10^3/MM^3 10*3/mm3 142-424 Lab Report: Chlamydia/GC [id number] - Lab chlamydia DNA probe NOT DETECTED NOT DETECTED Lab Report: Chlamydia/GC [id number] - Microbiology Neisseria gonorrhoeae DNA probe NOT DETECTED NOT DETECTED Lab Report: Comp. Metabolic Panel - Chemistry sodium, serum 140 mmol/L 485-507 0909/08/08 carbon dioxide, venous blood 33.7 mmol/L 21.0-32.0 potassium, serum 5.0 mmol/L 3.5-5.2 chloride, serum 103 mmol/L 98-107 blood glucose 80 mg/dL 65-110 urea nitrogen, blood 13 mg/dL 7-18 creatinine, serum 0.88 mg/dL 0.55-1.30 alanine aminotransferase (SGPT), serum 54 U/L 12-78 aspartate aminotransferase (SGOT), serum 29 U/L 15-37 calcium, serum 9.7 mg/dL 8.5-10.1 bilirubin, serum, total 0.30 mg/dL 0.00-1.00 sodium, serum 139 mmol/L 855-979 8528/12/22 carbon dioxide, venous blood 26.8 mmol/L 21.0-32.0 potassium, serum 4.2 mmol/L 3.5-5.2 chloride, serum 103 mmol/L 98-107 blood glucose 115 mg/dL 65-110 urea nitrogen, blood 20 mg/dL 7-18 creatinine, serum 0.90 mg/dL 0.55-1.30 alanine aminotransferase (SGPT), serum 38 U/L - aspartate aminotransferase (SGOT), serum 19 U/L 15-37 calcium, serum 8.6 mg/dL 8.5-10.1 bilirubin, serum, total 0.30 mg/dL 0.00-1.00 sodium, serum 139 mmol/L 179-243 6298/01/11 carbon dioxide, venous blood 26.6 mmol/L 21.0-32.0 potassium, serum 4.1 mmol/L 3.5-5.2 chloride, serum 100 mmol/L 98-107 blood glucose 86 mg/dL 65-110 urea nitrogen, blood 16 mg/dL 7-18 creatinine, serum 1.00 mg/dL 0.55-1.30 alanine aminotransferase (SGPT), serum 48 U/L aspartate aminotransferase (SGOT), serum 17 U/L 15-37 calcium, serum 9.1 mg/dL 8.5-10.1 bilirubin, serum, total 0.40 mg/dL 0.00-1.00 sodium, serum 142 mmol/L 885-493 0463/06/08 carbon dioxide, venous blood 27.6 mmol/L 21.0-32.0 [...] Rate - Chemistry sodium, serum 139 mmol/L 551-053 8899/12/11 carbon dioxide, venous blood 25.4 mmol/L 21.0-32.0 [...] mg/dL Encounters Code Encounter Date Provider Facility CPT-64385 Level 3 Est. Patient 15:07:06 RECREATION CLERK Neeraj Collins MD [facility] CPT-36763 Level 4 Est. Patient 14:45:00 RECREATION CLERK Ahmet Carbajal MD [facility] CPT-32917 Level 3 Est. Patient 13:59:59 CDT 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 APRN [facility] CPT-84127 Level 3 Est. Patient 18:18:53 CDT Neeraj Collins MD [facility] CPT-63030 Level 3 Est. Patient 15:50:44 CDT Vishal Hui MD [facility] CPT-33739 Level 3 Est. Patient 11:36:17 CDT Ahmet Carbajal MD [facility] CPT-67894 Level 3 Est. Patient 13:29:16 CDT Vishal Hui MD [facility] CPT-22448 Level 3 Est. Patient 14:27:52 CDT Neeraj Collins MD [facility] CPT-59773 Level 3 Est. Patient 08:56:03 CDT 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 [facility] [place] CPT-74590 Level 4 Est. Patient 12:11:48 CDT Fabiola Johnson [facility] [place] CPT-63806 Level 3 New Patient 16:53:37 CDT Albert Caldera MD [facility] CPT-97775 Level 3 Est. Patient 11:25:49 CDT Renzo Thornton DO [facility] CPT-58855 Level 3 Est. Patient 15:22:01 CDT Ahmet Carbajal MD [facility] CPT-93383 Level 4 Est. Patient 09:00:51 RECREATION CLERK Vishal Hui MD [facility] CPT-97237 Level 3 Est. Patient 11:37:33 RECREATION CLERK Vishal Hui MD [facility] CPT-82516 Level 3 Est. Patient 08:41:09 RECREATION CLERK Vishal Hui MD [facility] CPT-82288 Level 4 Est. Patient 10:19:35 RECREATION CLERK Vishal Hui MD [facility] CPT-05796 Level 3 Est. Patient 13:35:45 CDT Vishal Hui MD [facility] CPT-94048 Level 4 Est. Patient 10:08:37 CDT Vishal Hui MD [facility] CPT-23398 Level 3 Est. Patient 11:22:10 CDT Vishal Hui MD [facility] CPT-62875 Level 3 Est. Patient 11:03:32 CDT Sahara Rodriguez MD PhD [facility] CPT-08265 Level 3 Est. Patient 09:41:35 CDT Vishal Hui MD [facility] CPT-31868 Level 3 Est. Patient 12:00:41 CDT Neeraj Collins MD [facility] CPT-63740 Level 3 Est. Patient 09:16:24 CDT Vishal Hui MD [facility] CPT-69822 Level 4 Est. Patient 13:59:09 CDT Neeraj Collins MD [facility] CPT-27009 Level 3 Est. Patient 15:19:43 CDT Renzo Thornton [facility] CPT-16847 Level 3 Est. Patient 18:10:26 CDT Sahara Rodriguez MD [facility] CPT-34411 Level 3 Est. Patient 14:49:50 CDT Vishal Hui MD [facility] CPT-49434 Level 4 Est. Patient 18:41:46 CDT Neeraj Collins MD [facility] CPT-69913 Level 4 Est. Patient 09:18:38 RECREATION CLERK Vishal Hui MD [facility] CPT-95213 Level 3 Est. Patient 14:43:55 RECREATION CLERK Vishal Hui MD [facility] CPT-28936 Level 3 Est. Patient 15:26:33 RECREATION CLERK Sahara Rodriguez MD [facility] CPT-67193 Level 3 Est. Patient 10:32:14 RECREATION CLERK Vishal Hui MD [facility] CPT-37283 Level 3 Est. Patient 15:12:52 RECREATION CLERK Vishal Hui MD [facility] CPT-46280 Level 4 Est. Patient 09:19:27 CDT Vishal Hui MD [facility] [facility] CPT-27528 Level 3 Est. Patient 15:53:00 CDT Renzo Thornton [facility] CPT-17103 Level 3 Est. Patient 15:50:30 CDT Renzo Thornton [facility] CPT-21870 Level 3 Est. Patient 16:55:24 CDT Vishal Hui MD [facility] Procedures Code Procedure Name Date Entry Date Standard Description CPT-20037 Abx/Therapy Injection 17:34:30 RECREATION CLERK CPT-21807 Nexplanon Removal with Reinsertion 14:09:32 CDT CPT-J7307 Nexplanon (Implant) 14:09:32 CDT CPT-OV Office Visit 14:09:32 CDT CPT-26736 UA w micro - LAB USE ONLY 16:21:13 CDT CPT-37394 Wet Mount - LAB USE ONLY 16:21:13 CDT CPT-49642 First Vx - Ix admin for Medicare patients 14:37:47 CDT CPT-76487 Fluzone Preservative Free Intramuscular Suspension 14:37 :47 CDT CPT-63845 Abx/Therapy Injection 13:54:22 CDT CPT-45787 Abx/Therapy Injection 08:47:09 CDT CPT-08426 Abx/Therapy Injection 13:29:56 CDT CPT-20581 Abx/Therapy Injection 08:36:16 CDT CPT-44688 Wet Mount - LAB USE ONLY 17:44:58 CDT CPT-76430 UA w micro - LAB USE ONLY 17:44:58 CDT CPT-70237 CMP - LAB USE ONLY 17:44:58 CDT CPT-21969 Venipuncture Draw Fee 17:44:58 CDT CPT-44347 Cervical Min 4V - XRAY USE ONLY 09:01:40 CDT CPT-63125 Chest 2V Frontal and Lat - XRAY USE ONLY 11:06:31 CDT CPT-89762 EKG Trac and Interp - XRAY USE ONLY 11:31:43 CDT 08/26 CPT-J3420 Vitamin B12 1000mcg (Cyanocobalamin) 08:10:26 RECREATION CLERK 04/12 CPT-35319 Abx/Therapy Injection 08:10:26 RECREATION CLERK CPT-G0438 Initial Annual Wellness Exam 19:01:01 RECREATION CLERK CPT-J3420 Vitamin B12 1000mcg (Cyanocobalamin) 16:57:46 CDT 08/14 CPT-43259 Recombivax HB Injection Suspension 5 MCG/0.5ML 08:37:50 RECREATION CLERK CPT-43578 Immunization Single Admin 08:37:50 RECREATION CLERK CPT-J3420 Vitamin B12 1000mcg (Cyanocobalamin) 08:32:16 RECREATION CLERK 03/11 CPT-96940 Abx/Therapy Injection 08:32:16 RECREATION CLERK CPT-95586 Chest 2V Frontal and Lat 11:46:38 RECREATION CLERK CPT-57031 Venipuncture Draw Fee 09:12:45 RECREATION CLERK CPT-J3420 Vitamin B12 1000mcg (Cyanocobalamin) 08:50:15 RECREATION CLERK 02/08 CPT-83737 Abx/Therapy Injection 08:50:15 RECREATION CLERK CPT-Cryo Cryotherapy 10:19:35 RECREATION CLERK CPT-000 Give Appropriate Flu Vaccine 09:22:16 CDT CPT-J3420 Vitamin B12 1000mcg (Cyanocobalamin) 19:08:57 CDT 01/11 CPT-02236 Abx/Therapy Injection 19:08:57 CDT CPT-J3420 Vitamin B12 1000mcg (Cyanocobalamin) 08:19:08 CDT 12/11 CPT-84268 Abx/Therapy Injection 08:19:08 CDT CPT-J3420 Vitamin B12 1000mcg (Cyanocobalamin) 14:48:00 CDT 11/09 CPT-64354 Abx/Therapy Injection 14:47:59 CDT CPT-J3420 Vitamin B12 1000mcg (Cyanocobalamin) 08:34:04 CDT 10/09 CPT-33277 Abx/Therapy Injection 08:34:04 CDT CPT-J3420 Vitamin B12 1000mcg (Cyanocobalamin) 09:18:52 CDT 09/11 CPT-42058 Abx/Therapy Injection 09:18:52 CDT CPT-J3420 Vitamin B12 1000mcg (Cyanocobalamin) 08:35:44 CDT 09/04 CPT-55924 Abx/Therapy Injection 08:35:44 CDT CPT-15068 Immunization Single Admin 11:07:16 CDT CPT-88876 Hepatitis B adult IM 11:07:16 CDT CPT-J3420 Vitamin B12 1000mcg (Cyanocobalamin) 11:00:49 CDT 08/28 CPT-J1040 Depo Medrol 80 mg (Methyl Prednisolone Acetate) 11:00: 49 CDT CPT-59677 Abx/Therapy Injection 11:00:49 CDT CPT-J1040 Depo Medrol 80 mg (Methyl Prednisolone Acetate) 09:16: 23 CDT CPT-J3420 Vitamin B12 1000mcg (Cyanocobalamin) 08:27:05 CDT 08/20 CPT-11464 Abx/Therapy Injection 08:27:05 CDT CPT-19661 Recombivax HB Injection Suspension 5 MCG/0.5ML 10:00:41 CDT CPT-07590 Administration single or combination vaccine inc oral 10 :00:41 CDT CPT-17463 Sono transvag pelvis non OB uterus ovaries cervix 16:36: 57 CDT CPT-68047 LS spine comp w obliq 09:50:55 RECREATION CLERK CPT-49938 Abd compl w upright 09:50:55 RECREATION CLERK CPT-J1100 Decadron 4mg (Dexamethasone) 15:51:24 RECREATION CLERK CPT-J1030 Depo Medrol 40 mg (Methyl Prednisolone Acetate) 15:51: 24 RECREATION CLERK CPT-12314 Abx/Therapy Injection 15:51:24 RECREATION CLERK CPT-J1100 Decadron 4mg (Dexamethasone) 15:26:33 RECREATION CLERK CPT-J1030 Depo Medrol 40 mg (Methyl Prednisolone Acetate) 15:26: 33 RECREATION CLERK CPT-17467 Sono retroperitoneal complete kidneys and bladder 17:15: 30 CDT CPT-39488 Abd compl w upright 16:09:25 CDT CPT-J1100 Decadron 8mg (Dexamethasone) 17:07:57 CDT CPT-34067 Abx/Therapy Injection 17:07:57 CDT CPT-J1100 Decadron 8mg (Dexamethasone) 16:55:24 CDT CPT-93337 Chest 2V Frontal and Lat 16:32:44 CDT
[2016-11-04] MEDS ORDERED: morphine INJ 10 MG/ML 1ML (SYR OR VIAL) IVP STA (12:16)
[2016-11-04] MEDS ORDERED: DEXAMETHASONE PF 10 MG/ML (DECADRON) VIAL IV STA (12:16)
[2016-11-04] MEDS ORDERED: DEXAMETHASONE 10 MG/ML (DECADRON) 1 ML VIAL ONE (12:17)
--- OUTSIDE RECORDS SUMMARY | 2016-11-04 12:17 | XMS REPORT | Clinical Summary ---
Author Author Admin, E Organization [facility] Address Unknown Phone Unavailable Allergies, Adverse [...] breath Nocturnal hypoxia 799.02 Active Fabiola Johnson BACKROOM ASSOCIATE Hypoxemia Neck pain 723.1 Resolved Vishal Hui [...] 6 hours as needed for cough GUAIFENESIN-CODEINE 76938305432 Active Ahmet Carbajal MD Active PREDNISONE 20 MG TABS 2 daily for 5 days then 1 daily for 5 days PREDNISONE 82688304968 Active Ahmet Carbajal MD Active LAMICTAL 100 MG ORAL TABS 1 tab q.d LAMOTRIGINE 66504955403 Active Ahmet Carbajal MD Active BENADRYL 25 MG CAP 4 po at bedtime for insomnia DIPHENHYDRAMINE HCL 62429209484 No Longer Active Ahmet Carbajal MD Active ADVAIR DISKUS 250-50 MCG/DOSE INH AEPB 1 puff twice a day for asthma FLUTICASONE-SALMETEROL 80185333080 No Longer Active Ahmet Carbajal MD Active KLONOPIN 1 MG ORAL TABS 1 tab po TID CLONAZEPAM 83397255527 No Longer Active Ahmet Carbajal MD Active ABILIFY MAINTENA 400 MG IM SUSR 400mg injection every 26 days ARIPIPRAZOLE 25233126069 No Longer Active Ahmet Carbajal MD Active HALOPERIDOL 10 MG ORAL TABS 1 tab q.d HALOPERIDOL 75707923563 Active Ahmet Carbajal MD Active ASPIRIN 325 MG ORAL TABS 1 tab q.d ASPIRIN 33717793032 Active Ahmet Carbajal MD Active HYDROCODONE-ACETAMINOPHEN 5-325 MG ORAL TABS 1 tab two times a day HYDROCODONE-ACETAMINOPHEN 06166365035 Active Ahmet Carbajal MD Active TRAMADOL HCL 50 MG TABS 1/2-1 tab TID PRN TRAMADOL HCL 10604534363 No Longer Active Ahmet Carbajal MD Active BACTRIM DS 800-160 MG TABS 1 twice a day SULFAMETHOXAZOLE- TRIMETHOPRIM 97249775703 No Longer Active Ahmet Carbajal MD Active PROAIR HFA 108 (90 BASE) MCG/ACT AERS 2 puffs four times a day as needed 2015 ALBUTEROL SULFATE 47150118984 Active Ahmet Carbajal MD Active EQ NICOTINE 21 MG/24HR TRANS PT24 Apply daily to stop smoking NICOTINE 56239493277 Active Ahmet Carbajal MD Active MONISTAT 7 COMBO PACK OWODROW 100 & 2 MG-% (9GM) VAG KIT 1 applicatorful per vagina q pm x 7 MICONAZOLE NITRATE 34772427830 No Longer Active Ahmet Carbajal MD Active FLAGYL 500 MG TAB 1 tablet by mouth bid METRONIDAZOLE 77682298479 No Longer Active Ahmet Carbajal MD Active OXYCODONE HCL ER 10 MG ORAL T12A 1/2 tab by mouth every 4 hours prn OXYCODONE HCL 96953800183 No Longer Active Ahmet Carbajal MD Active METHYLPREDNISOLONE 4 MG ORAL TABS po daily METHYLPREDNISOLONE 10524251225 No Longer Active Ahmet Carbajal MD Active LEVOFLOXACIN 500 MG ORAL TABS po daily LEVOFLOXACIN 11827522034 No Longer Active Ahmet Carbajal MD Active VIIBRYD 10 MG ORAL TABS Take 1 tablet once a day VILAZODONE HCL 07131964423 No Longer Active Ahmet Carbajal MD Active TOPAMAX 50 MG ORAL TABS 1 tab twice daily TOPIRAMATE 93578347930 No Longer Active Ahmet Carbajal MD Active DICLOFENAC SODIUM 50 MG TBEC 1 tablet by mouth four times daily PRN Pain 2015 DICLOFENAC SODIUM 50651323869 No Longer Active Ahmet Carbajal MD Active ADZENYS XR-ODT 6.3 MG ORAL TBED 1 tab po daily for ADHD AMPHETAMINE 12255087764 No Longer Active Ahmet Carbajal MD Active CHANTIX 1 MG TABS 1 twice a day to help quit smoking VARENICLINE TARTRATE 18969823338 No Longer Active Dipika Burgos MD Active CHANTIX STARTING MONTH EARNEST 0.5 MG X 11 & 1 MG X 42 TABS take as directed 2015 VARENICLINE TARTRATE 75415463890 No Longer Active Dipika Burgos MD Active TESSALON PERLES 100 MG CAP 1 to 2 tablets by mouth 3 times daily as needed for cough BENZONATATE 83098129249 No Longer Active 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 APRN Active IMITREX 50 MG ORAL TABS 0.5 po x 1 PRN Headache. May repeat dose x 1 in 2 hours if needed SUMATRIPTAN SUCCINATE 84045228403 Active TAMARA Casey Active HYDROCODONE-ACETAMINOPHEN 5-325 MG TABS 1 to 2 four times a day as needed for pain use until can be seen by specialist HYDROCODONE- ACETAMINOPHEN 96777758510 No Longer Active Vishal Hui MD Active PROAIR HFA 108 (90 BASE) MCG/ACT AERS 2 puffs four times a day as needed 2015 ALBUTEROL SULFATE 22606501863 No Longer Active Vishal Hui MD Active PREDNISONE 20 MG TABS 2 daily for 5 days then 1 daily for 5 days PREDNISONE 09611100215 No Longer Active Vishal Hui MD Active ZITHROMAX Z-EARNEST 250 MG TABS 2 today and then 1 daily for 4 days AZITHROMYCIN 60276028667 No Longer Active Vishal Hui MD Active DICLOFENAC POTASSIUM TABS Take 1 tablet twice a day (pt. is not sure of the dose.) DICLOFENAC POTASSIUM TABS 61952558263 No Longer Active Vishal Hui MD Active VERAPAMIL HCL ER 120 MG ORAL CR-TABS Take 1 tablet by mouth twice a day. VERAPAMIL HCL 08755319627 Active Vishal Hui MD Active FLAGYL 500 MG TAB 1 tablet by mouth bid METRONIDAZOLE 74158683991 No Longer Active Vishal Hui MD Active FLUTICASONE PROPIONATE 50 MCG/ACT SUSP 2 sprays each nostril daily before bed. FLUTICASONE PROPIONATE 23534812371 Active Fabiola Johnson APRN Active VALIUM 5 MG TAB Take 1-2 tablets daily DIAZEPAM 20635977056 No Longer Active Fabiola Johnson APRN Active METOPROLOL TARTRATE 25 MG ORAL TABS 1/2 tablet twice daily for heart rate and blood pressure METOPROLOL TARTRATE 33189398163 No Longer Active Fabiola Johnson APRN Active MIRALAX ORAL POWD 17GMS DAILY IN WATER POLYETHYLENE GLYCOL 3350 58686266088 Active Vishal Hui MD Active MIRALAX PACK 1 po qd PRN Constipation POLYETHYLENE GLYCOL 3350 13022677867 No Longer Active Ahmet Carbajal MD Active MINIPRESS 2 MG CAPS 4 cap po at night PRAZOSIN HCL 96478023988 No Longer Active Ahmet Carbajal MD Active PIROXICAM 20 MG CAPS 1 cap po qd PRN Pain PIROXICAM 70251808361 No Longer Active Ahmet Carbajal MD Active TRAMADOL HCL 50 MG TABS 1-2 po TID PRN Pain TRAMADOL HCL 27239861472 No Longer Active Ahmet Carbajal MD Active METOPROLOL TARTRATE 50 MG TAB 1 po bid METOPROLOL TARTRATE 01505769639 No Longer Active Ahmet Carbajal MD Active ABILIFY 15 MG ORAL TABS 1 tab daily ARIPIPRAZOLE 34432636511 No Longer Active Ahmet Carbajal MD Active PROZAC 20 MG ORAL CAPS 1 tab daily FLUOXETINE HCL 97877138963 No Longer Active Ahmet Carbajal MD Active AMBIEN 5 MG ORAL TABS 1 tab at bedtime ZOLPIDEM TARTRATE 83109121723 No Longer Active Ahmet Carbajal MD Active PREDNISONE 20 MG TAB 2 tabs daily for 4 days, 1 tab daily for 4 days, 1/2 tab daily for 4 days PREDNISONE 26552396857 No Longer Active Ahmet Carbajal MD Active KEFLEX 500 MG CAP 1 po TID x 10 days CEPHALEXIN 54996354723 No Longer Active Vishal Hui MD Active SAPHRIS 5 MG SUBL 1 po bid ASENAPINE MALEATE 72483262557 No Longer Active Jillina Fralebron BACKROOM ASSOCIATE Active LATUDA 80 MG TABS Take one by mouth daily LURASIDONE HCL 85552692990 No Longer Active Jillina Frazelephraim BACKROOM ASSOCIATE Active AMLODIPINE BESYLATE 5 MG TABS 1 tablet by mouth daily AMLODIPINE BESYLATE 39643789270 No Longer Active Jillina Fradwightl BACKROOM ASSOCIATE Active AMITRIPTYLINE HCL 100 MG TAB one at hs AMITRIPTYLINE HCL 42063390976 No Longer Active Vishal Hui MD Active TRAZODONE HCL 100 MG TAB take 1 at bedtime TRAZODONE HCL 93854778998 No Longer Active Vishal Hui MD Active VYVANSE 40 MG CAPS 1 daily, LISDEXAMFETAMINE DIMESYLATE 87262233799 No Longer Active Vishal Hui MD Active IBUPROFEN 600 MG TAB 1 po TID PRN IBUPROFEN 92654801765 No Longer Active Vishal Hui MD Active PROZAC 20 MG CAP Take one by mouth daily FLUOXETINE HCL 59337681754 No Longer Active Vishal Hui MD Active ZOFRAN 4 MG TABS 1 po q6hr PRN Nausea ONDANSETRON HCL Active Vishal Hui MD Active BACTRIM DS 800-160 MG TABS 1 pill by mouth twice daily SULFAMETHOXAZOLE-TRIMETHOPRIM 71446081778 No Longer Active Sahara Rodriguez MD PhD Active DIFLUCAN 150 MG TAB 1 tablet by mouth daily FLUCONAZOLE 52080151777 No Longer Active Vishal Hui MD Active TIZANIDINE HCL 4 MG TABS 1 po q6hr PRN Muscle Spasm/Back Pain TIZANIDINE HCL 58939520745 Active Vishal Hui MD Active CLINDAMYCIN HCL 150 MG CAPS 1 four times a day CLINDAMYCIN HCL 44114684679 No Longer Active Neeraj Collins MD Active KEFLEX 500 MG ORAL CAPS 1 cap QID by mouth CEPHALEXIN 23955129797 No Longer Active Neeraj Collins MD Active DIFLUCAN 150 MG TABS 1 pill every other day x 2 doses FLUCONAZOLE 58700957847 No Longer Active Sahara Rodriguez MD PhD Active MELATONIN 3 MG CAPS 2 po q hs MELATONIN 63258582159 No Longer Active Sahara Rodriguez MD PhD Active MULTIVITAMINS CAPS Take one by mouth daily MULTIPLE VITAMIN 86106148603 No Longer Active Sahara Rodriguez MD PhD Active BACTRIM DS 800-160 MG TAB 1 tab by mouth twice daily TRIMETHOPRIM-SULFAMETHOXAZOLE 45688266916 No Longer Active Sahara Rodriguez MD PhD Active [facility] PROBIOTIC ORAL CHEW 2 daily po PROBIOTIC PRODUCT 37939552881 No Longer Active Sahara Rodriguez MD PhD Active BACTRIM DS 800-160 MG TABS 1 po BID x 7 days SULFAMETHOXAZOLE-TRIMETHOPRIM 18219440030 No Longer Active Vishal Hui MD Active CHANTIX STARTING MONTH EARNEST 0.5 MG X 11 & 1 MG X 42 TABS 0.5mg daily for 3 days , then 0.5mg BID for 4 days, then 1mg BID VARENICLINE TARTRATE 22339984753 No Longer Active TAMARA Gray Active VERAPAMIL HCL CR 120 MG TAB CR 1 po bid VERAPAMIL HCL 17827959675 No Longer Active Vishal Hui MD Active METOPROLOL SUCCINATE 50 MG TB24 1 tablet by mouth daily METOPROLOL SUCCINATE 90400896841 No Longer Active Vishal Hui MD Active SAPHRIS 10 MG SUBL 1 tab po bid ASENAPINE MALEATE 95077627496 No Longer Active Vishal Hui MD Active LISINOPRIL 20 MG TABS 1 tab po qd LISINOPRIL 02710449708 No Longer Active Vishal Hui MD Active LATUDA 20 MG TABS Take one by mouth daily LURASIDONE HCL 77289720903 No Longer Active Vishal Hui MD Active TRAZODONE HCL 50 MG TABS 1/2 tab po qd prn for anxiety TRAZODONE HCL 63499639526 No Longer Active Vishal Hui MD Active OMEPRAZOLE 20 MG TBEC 1 po q a.m. 30min prior to first food intake OMEPRAZOLE 61197624767 Active Vishal Hui MD Active RANITIDINE HCL 150 MG CAPS 1 twice a day RANITIDINE HCL 67072602052 Active 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 APRN Active LINZESS 290 MCG CAPS Take one by mouth daily LINACLOTIDE 83065824894 No Longer Active Vishal Hui MD Active SAPHRIS 5 MG SUBL 1 tab po qd ASENAPINE MALEATE 93011464388 No Longer Active Vishal Hui MD Active ZALEPLON 10 MG CAPS 1 cap po every other night ZALEPLON 10042146109 No Longer Active Vishal Hui MD Active LYRICA 50 MG CAPS 1 tab po TID PREGABALIN 49601863714 No Longer Active Vishal Hui MD Active LORATADINE 10 MG TABS 1 tab po qd LORATADINE 13026649458 No Longer Active Vishal Hui MD Active VERAPAMIL HCL ER 180 MG CR-TABS 1 tab po bid VERAPAMIL HCL 14510235438 No Longer Active Vishal Hui MD Active MIRALAX POWD 1 capfull once daily POLYETHYLENE GLYCOL 3350 10286339708 No Longer Active Vishal Hui MD Active PREDNISONE 20 MG TABS 1 tab po qd PREDNISONE 17247162150 No Longer Active Renzo Thornton DO Active LEVOFLOXACIN 500 MG TABS 1 tab po qd LEVOFLOXACIN 80178051736 No Longer Active Renzo Thornton DO Active BUSPIRONE HCL 15 MG TABS 1 tab po TID BUSPIRONE HCL 94878953131 No Longer Active Renzo Thornton DO Active BENZTROPINE MESYLATE 1 MG TABS 1 tab po qd BENZTROPINE MESYLATE 36336233242 No Longer Active Renzo Thornton DO Active ATENOLOL 25 MG TABS 1 tab po qd ATENOLOL 30350237209 No Longer Active Renzo Thornton DO Active ESCITALOPRAM OXALATE 20 MG TABS 1 tab po qd ESCITALOPRAM OXALATE 76641184298 No Longer Active Renzo Thornton DO Active ADVAIR DISKUS 250-50 MCG/DOSE AEPB 1 puff BID FLUTICASONE-SALMETEROL 36971037696 No Longer Active Renzo Thornton DO Active PREDNISONE 20 MG TAB 2 tabs daily for 3 days, 1 tab daily for 3 days, 1/2 tab daily for 2 days PREDNISONE 75254639910 No Longer Active Vishal Hui MD Active CEFDINIR 300 MG CAPS by mouth twice a day CEFDINIR 25396404784 No Longer Active Vishal Hui MD Active LANSOPRAZOLE 30 MG CPDR 1 cap po qd LANSOPRAZOLE 59420179299 No Longer Active Vishal Hui MD Active BACLOFEN 20 MG TABS 1 tab po tid BACLOFEN 93519379801 No Longer Active Vishal Hui MD Active ADVAIR DISKUS 250-50 MCG/DOSE AEPB 1 puff BID ADVAIR DISKUS 250-50 MCG/DOSE AEPB FLUTICASONE-SALMETEROL Inactive ESCITALOPRAM OXALATE 20 MG TABS 1 tab po qd ESCITALOPRAM OXALATE 20 MG TABS 834257 ESCITALOPRAM OXALATE Inactive ATENOLOL 25 MG TABS 1 tab po qd ATENOLOL 25 MG TABS 311163 ATENOLOL Inactive BENZTROPINE MESYLATE 1 MG TABS 1 tab po qd BENZTROPINE MESYLATE 1 MG TABS 928784 BENZTROPINE MESYLATE Inactive BUSPIRONE HCL 15 MG TABS 1 tab po TID BUSPIRONE HCL 15 MG TABS 997431 BUSPIRONE HCL Inactive LEVOFLOXACIN 500 MG TABS 1 tab po qd LEVOFLOXACIN 500 MG TABS 574913 LEVOFLOXACIN Inactive PREDNISONE 20 MG TABS 1 tab po qd PREDNISONE 20 MG TABS 628409 PREDNISONE Inactive MIRALAX POWD 1 capfull once daily MIRALAX POWD 923243 POLYETHYLENE GLYCOL 3350 Inactive VERAPAMIL HCL ER 180 MG CR-TABS 1 tab po bid VERAPAMIL HCL ER 180 MG CR-TABS VERAPAMIL HCL Inactive LORATADINE 10 MG TABS 1 tab po qd LORATADINE 10 MG TABS 251402 LORATADINE Inactive LYRICA 50 MG CAPS 1 tab po TID LYRICA 50 MG CAPS PREGABALIN Inactive ZALEPLON 10 MG CAPS 1 cap po every other night ZALEPLON 10 MG CAPS 835716 ZALEPLON Inactive SAPHRIS 5 MG SUBL 1 tab po qd SAPHRIS 5 MG SUBL ASENAPINE MALEATE Inactive TRAZODONE HCL 50 MG TABS 1/2 tab po qd prn for anxiety TRAZODONE HCL 50 MG TABS 043844 TRAZODONE HCL Inactive LATUDA 20 MG TABS Take one by mouth daily LATUDA 20 MG TABS LURASIDONE HCL Inactive LISINOPRIL 20 MG TABS 1 tab po qd LISINOPRIL 20 MG TABS 618801 LISINOPRIL Inactive SAPHRIS 10 MG SUBL 1 [...] twice daily BACTRIM DS 800-160 MG TAB 543307 TRIMETHOPRIM-SULFAMETHOXAZOLE Inactive MULTIVITAMINS CAPS Take one by mouth daily MULTIVITAMINS CAPS MULTIPLE VITAMIN Inactive MELATONIN 3 MG CAPS 2 po q hs MELATONIN 3 MG CAPS 757658 MELATONIN Inactive KEFLEX 500 MG ORAL CAPS 1 cap QID by mouth KEFLEX 500 MG ORAL CAPS 861943 CEPHALEXIN Inactive CLINDAMYCIN HCL 150 MG CAPS 1 four times a day CLINDAMYCIN HCL 150 MG CAPS 998031 CLINDAMYCIN HCL Inactive DIFLUCAN 150 MG TAB 1 tablet by mouth daily DIFLUCAN 150 MG TAB 362764 FLUCONAZOLE Inactive PROZAC 20 MG CAP Take one by mouth daily PROZAC 20 MG CAP 107420 FLUOXETINE HCL Inactive IBUPROFEN 600 MG TAB 1 po TID PRN IBUPROFEN 600 MG TAB 801812 IBUPROFEN Inactive VYVANSE 40 MG CAPS 1 daily, VYVANSE 40 MG CAPS LISDEXAMFETAMINE DIMESYLATE Inactive TRAZODONE HCL 100 MG TAB take 1 at bedtime TRAZODONE HCL 100 MG TAB 336278 TRAZODONE HCL Inactive AMITRIPTYLINE HCL 100 MG TAB one at hs AMITRIPTYLINE HCL 100 MG TAB 593663 AMITRIPTYLINE HCL Inactive AMLODIPINE BESYLATE 5 MG TABS 1 tablet by mouth daily AMLODIPINE BESYLATE 5 MG TABS 120280 AMLODIPINE BESYLATE Inactive LATUDA 80 MG TABS Take one by mouth daily LATUDA 80 MG TABS LURASIDONE HCL Inactive SAPHRIS 5 MG SUBL 1 po bid SAPHRIS 5 MG SUBL ASENAPINE MALEATE Inactive PREDNISONE 20 MG TAB 2 tabs daily for 4 days, 1 tab daily for 4 days, 1/2 tab daily for 4 days PREDNISONE 20 MG TAB 652535 PREDNISONE Inactive AMBIEN 5 MG ORAL TABS 1 tab at bedtime AMBIEN 5 MG ORAL TABS 548617 ZOLPIDEM TARTRATE Inactive PROZAC 20 MG ORAL CAPS 1 tab daily PROZAC 20 MG ORAL CAPS 749750 FLUOXETINE HCL Inactive ABILIFY 15 MG ORAL TABS 1 tab daily ABILIFY 15 MG ORAL TABS 397852 ARIPIPRAZOLE Inactive METOPROLOL TARTRATE 50 MG TAB 1 po bid METOPROLOL TARTRATE 50 MG TAB 004219 METOPROLOL TARTRATE Inactive TRAMADOL HCL 50 MG TABS 1-2 po TID PRN Pain TRAMADOL HCL 50 MG TABS 248816 TRAMADOL HCL Inactive PIROXICAM 20 MG CAPS 1 cap po qd PRN Pain PIROXICAM 20 MG CAPS 806920 PIROXICAM Inactive MINIPRESS 2 MG CAPS 4 cap po at night MINIPRESS 2 MG CAPS 044912 PRAZOSIN HCL Inactive MIRALAX PACK 1 po qd PRN Constipation MIRALAX PACK 926355 POLYETHYLENE GLYCOL 3350 Inactive METOPROLOL TARTRATE 25 MG ORAL TABS 1/2 tablet twice daily for heart rate and blood pressure METOPROLOL TARTRATE 25 MG ORAL TABS 527781 METOPROLOL TARTRATE Inactive VALIUM 5 MG TAB Take 1-2 tablets daily VALIUM 5 MG TAB 109993 DIAZEPAM Inactive FLAGYL 500 MG TAB 1 tablet by mouth bid FLAGYL 500 MG TAB 442651 METRONIDAZOLE Inactive DICLOFENAC POTASSIUM TABS Take 1 tablet twice a day (pt. is not sure of the dose.) DICLOFENAC POTASSIUM TABS DICLOFENAC POTASSIUM TABS Inactive ZITHROMAX Z-EARNEST 250 MG TABS 2 today and then 1 daily for 4 days ZITHROMAX Z-EARNEST 250 MG TABS 2941861 AZITHROMYCIN Inactive PREDNISONE 20 MG TABS 2 daily for 5 days then 1 daily for 5 days PREDNISONE 20 MG TABS 402843 PREDNISONE Inactive PROAIR HFA 108 (90 BASE) MCG/ACT AERS 2 puffs four times a day as needed 2015 PROAIR HFA 108 (90 BASE) MCG/ACT AERS ALBUTEROL SULFATE Inactive HYDROCODONE-ACETAMINOPHEN 5-325 MG TABS 1 to 2 four times a day as needed for pain use until can be seen by specialist HYDROCODONE- ACETAMINOPHEN 5-325 MG TABS 850859 HYDROCODONE-ACETAMINOPHEN Inactive TESSALON PERLES 100 MG CAP 1 to 2 tablets by mouth 3 times daily as needed for cough TESSALON PERLES 100 MG CAP 696181 BENZONATATE Inactive CHANTIX STARTING MONTH EARNETS 0.5 MG X 11 & 1 MG X 42 TABS take as directed 2015 CHANTIX STARTING MONTH EARNEST 0.5 MG X 11 & 1 MG X 42 TABS VARENICLINE TARTRATE Inactive CHANTIX 1 MG TABS 1 twice a day to help quit smoking CHANTIX 1 MG TABS VARENICLINE TARTRATE Inactive ADZENYS XR-ODT 6.3 MG ORAL TBED 1 tab po daily for ADHD 470 ADZENYS XR-ODT 6.3 MG ORAL TBED AMPHETAMINE Inactive DICLOFENAC SODIUM 50 MG TBEC 1 tablet by mouth four times daily PRN Pain 2015 DICLOFENAC SODIUM 50 MG [facility] 198083 DICLOFENAC SODIUM Inactive TOPAMAX 50 MG ORAL TABS 1 tab twice daily TOPAMAX 50 MG ORAL TABS 914729 TOPIRAMATE Inactive VIIBRYD 10 MG ORAL TABS Take 1 tablet once a day VIIBRYD 10 MG ORAL TABS VILAZODONE HCL Inactive LEVOFLOXACIN 500 MG ORAL TABS po daily LEVOFLOXACIN 500 MG ORAL TABS 131993 LEVOFLOXACIN Inactive METHYLPREDNISOLONE 4 MG ORAL TABS po daily METHYLPREDNISOLONE 4 MG ORAL TABS 539226 METHYLPREDNISOLONE Inactive OXYCODONE HCL ER 10 MG ORAL T12A 1/2 tab by mouth every 4 hours prn OXYCODONE HCL ER 10 MG ORAL T12A OXYCODONE HCL Inactive FLAGYL 500 MG TAB 1 tablet by mouth bid FLAGYL 500 MG TAB 625544 METRONIDAZOLE Inactive MONISTAT 7 COMBO PACK WOODROW 100 & 2 MG-% (9GM) VAG KIT 1 applicatorful per vagina q pm x 7 MONISTAT 7 COMBO PACK WOODROW 100 & 2 MG-% (9GM) VAG KIT MICONAZOLE NITRATE Inactive BACTRIM DS 800-160 MG TABS 1 twice a day BACTRIM DS 800-160 MG TABS 766618 SULFAMETHOXAZOLE-TRIMETHOPRIM Inactive TRAMADOL HCL 50 MG TABS 1/2-1 tab TID PRN TRAMADOL HCL 50 MG TABS 743798 TRAMADOL HCL Inactive ABILIFY MAINTENA 400 MG IM SUSR 400mg injection every 26 days ABILIFY MAINTENA 400 MG IM SUSR ARIPIPRAZOLE Inactive KLONOPIN 1 MG ORAL TABS 1 tab po TID KLONOPIN 1 MG ORAL TABS 010885 CLONAZEPAM Inactive ADVAIR DISKUS 250-50 MCG/DOSE INH AEPB 1 puff twice a day for asthma ADVAIR DISKUS 250-50 MCG/DOSE INH AEPB FLUTICASONE- SALMETEROL Inactive BENADRYL 25 MG CAP 4 po at bedtime for insomnia BENADRYL 25 MG CAP DIPHENHYDRAMINE HCL Inactive CEFDINIR 300 MG CAPS by mouth twice a day CEFDINIR 300 MG CAPS 271045 CEFDINIR Inactive PREDNISONE 20 MG TAB 2 tabs daily for 3 days, 1 tab daily for 3 days, 1/2 tab daily for 2 days PREDNISONE 20 MG TAB 373595 PREDNISONE Inactive BACTRIM DS 800-160 MG TABS 1 po BID x 7 days BACTRIM DS 800-160 MG TABS 19820521 SULFAMETHOXAZOLE-TRIMETHOPRIM Inactive DIFLUCAN 150 MG TABS 1 pill every other day x 2 doses DIFLUCAN 150 MG TABS 616804 FLUCONAZOLE Inactive BACTRIM DS 800-160 MG TABS 1 pill by mouth twice daily BACTRIM DS 800-160 MG TABS 962881 SULFAMETHOXAZOLE-TRIMETHOPRIM Inactive KEFLEX 500 MG CAP 1 po TID x 10 days KEFLEX 500 MG CAP 501317 CEPHALEXIN Inactive Advance Directives Directive Description Start [...] 369 10^3/MM^3 10*3/mm3 142-424 Lab Report: Chlamydia/GC [id number] - Lab chlamydia DNA probe NOT DETECTED NOT DETECTED Lab Report: Chlamydia/GC [id number] - Microbiology Neisseria gonorrhoeae DNA probe NOT DETECTED NOT DETECTED Lab Report: Comp. Metabolic Panel - Chemistry sodium, serum 139 mmol/L 286-693 2119/01/11 carbon dioxide, venous blood 26.6 mmol/L 21.0-32.0 potassium, serum 4.1 mmol/L 3.5-5.2 chloride, serum 100 mmol/L 98-107 blood glucose 86 mg/dL 65-110 urea nitrogen, blood 16 mg/dL 7-18 creatinine, serum 1.00 mg/dL 0.55-1.30 alanine aminotransferase (SGPT), serum 48 U/L - aspartate aminotransferase (SGOT), serum 17 U/L 15-37 calcium, serum 9.1 mg/dL 8.5-10.1 bilirubin, serum, total 0.40 mg/dL 0.00-1.00 sodium, serum 142 mmol/L 407-434 0088/06/08 carbon dioxide, venous blood 27.6 mmol/L 21.0-32.0 potassium, serum 4.0 mmol/L 3.5-5.2 chloride, serum 105 mmol/L 98-107 blood glucose 95 mg/dL 65-110 urea nitrogen, blood 8 mg/dL 7-18 creatinine, serum 0.75 mg/dL 0.55-1.30 alanine aminotransferase (SGPT), serum 49 U/L -78 aspartate aminotransferase (SGOT), serum 28 U/L 15-37 calcium, serum 9.4 mg/dL 8.5-10.1 bilirubin, serum, total 0.30 mg/dL 0.00-1.00 sodium, serum 140 mmol/L 602-909 5301/08/08 carbon dioxide, venous blood 33.7 mmol/L 21.0-32.0 [...] mg/dL Encounters Code Encounter Date Provider Facility CPT-47417 Level 3 Est. Patient 10:40:11 FIRST AID INSTRUCTOR Ahmet Carbajal MD [facility] CPT-12025 Level 3 Est. Patient 15:07:06 FIRST AID INSTRUCTOR Neeraj Collins MD [facility] CPT-52078 Level 4 Est. Patient 14:45:00 FIRST AID INSTRUCTOR Ahmet Carbajal MD [facility] CPT-50380 Level 3 Est. Patient 13:59:59 CDT 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 [facility] CPT-28657 Level 3 Est. Patient 18:18:53 CDT Neeraj Collins MD [facility] CPT-41528 Level 3 Est. Patient 15:50:44 CDT Vishal Hui MD [facility] CPT-67135 Level 3 Est. Patient 11:36:17 CDT Ahmet Carbajal MD [facility] CPT-69896 Level 3 Est. Patient 13:29:16 CDT Vishal Hui MD [facility] CPT-60007 Level 3 Est. Patient 14:27:52 CDT Neeraj Collins MD [facility] CPT-38808 Level 3 Est. Patient 08:56:03 CDT 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 [facility] CPT-94882 Level 4 Est. Patient 12:11:48 CDT Fabiola Johnson [facility] CPT-14920 Level 3 New Patient 16:53:37 CDT Albert Caldera MD [facility] CPT-59002 Level 3 Est. Patient 11:25:49 CDT Renzo Thornton DO [facility] CPT-31274 Level 3 Est. Patient 15:22:01 CDT Ahmet Carbajal MD [facility] CPT-92069 Level 4 Est. Patient 09:00:51 FIRST AID INSTRUCTOR Vishal Hui MD [facility] CPT-13340 Level 3 Est. Patient 11:37:33 FIRST AID INSTRUCTOR Vishal Hui MD [facility] CPT-17539 Level 3 Est. Patient 08:41:09 FIRST AID INSTRUCTOR Vishal Hui MD [facility] CPT-90927 Level 4 Est. Patient 10:19:35 FIRST AID INSTRUCTOR Vishal Hui MD [facility] CPT-30115 Level 3 Est. Patient 13:35:45 CDT Vishal Hui MD [facility] CPT-27526 Level 4 Est. Patient 10:08:37 CDT Vishal Hui MD [facility] CPT-37782 Level 3 Est. Patient 11:22:10 CDT Vishal Hui MD [facility] CPT-80337 Level 3 Est. Patient 11:03:32 CDT Sahara Rodriguez MD [facility] CPT-19196 Level 3 Est. Patient 09:41:35 CDT Vishal Hui MD [facility] CPT-19338 Level 3 Est. Patient 12:00:41 CDT Neeraj Collins MD [facility] CPT-47002 Level 3 Est. Patient 09:16:24 CDT Vishal Hui MD [facility] CPT-47541 Level 4 Est. Patient 13:59:09 CDT Neeraj Collins MD [facility] CPT-20366 Level 3 Est. Patient 15:19:43 CDT Renzo Thornotn DO [facility] CPT-65298 Level 3 Est. Patient 18:10:26 CDT Sahara Rodriguez MD [facility] CPT-29292 Level 3 Est. Patient 14:49:50 CDT Vishal Hui MD [facility] CPT-86958 Level 4 Est. Patient 18:41:46 CDT Neeraj Collins MD [facility] CPT-33651 Level 4 Est. Patient 09:18:38 [employer] Vishal Hui MD [facility] CPT-04934 Level 3 Est. Patient 14:43:55 [employer] Vishal Hui MD [facility] CPT-88180 Level 3 Est. Patient 15:26:33 [employer] Sahara Rodriguez MD PhD [facility] CPT-53823 Level 3 Est. Patient 10:32:14 [employer] Vishal Hui MD [facility] CPT-82920 Level 3 Est. Patient 15:12:52 [employer] Vishal Hui MD [facility] CPT-48221 Level 4 Est. Patient 09:19:27 CDT Vishal Hui MD [facility] CPT-39578 Level 3 Est. Patient 15:53:00 CDT Renzo Thornton [facility] CPT-19181 Level 3 Est. Patient 15:50:30 CDT Renzo Thornton [facility] CPT-22567 Level 3 Est. Patient 16:55:24 CDT Vishal Hui MD [facility] Procedures Code Procedure Name Date Entry Date Standard Description CPT-68209 TSH - LAB USE ONLY 08:50:26 FIRST AID INSTRUCTOR CPT-68894 CBC - LAB USE ONLY 08:50:26 FIRST AID INSTRUCTOR CPT-73419 Venipuncture Draw Fee 08:50:26 FIRST AID INSTRUCTOR CPT-98882 Abx/Therapy Injection 17:34:30 FIRST AID INSTRUCTOR CPT-82887 Nexplanon Removal with Reinsertion 14:09:32 CDT CPT-J7307 Nexplanon (Implant) 14:09:32 CDT CPT-OV Office Visit 14:09:32 CDT CPT-93806 UA w micro - LAB USE ONLY 16:21:13 CDT CPT-81867 Wet Mount - LAB USE ONLY 16:21:13 CDT CPT-48619 First Vx - Ix admin for Medicare patients 14:37:47 CDT CPT-27384 Fluzone Preservative Free Intramuscular Suspension 14:37 :47 CDT CPT-46455 Abx/Therapy Injection 13:54:22 CDT CPT-40457 Abx/Therapy Injection 08:47:09 CDT CPT-08226 Abx/Therapy Injection 13:29:56 CDT CPT-61963 Abx/Therapy Injection 08:36:16 CDT CPT-90724 Wet Mount - LAB USE ONLY 17:44:58 CDT CPT-41382 UA w micro - LAB USE ONLY 17:44:58 CDT CPT-64677 CMP - LAB USE ONLY 17:44:58 CDT CPT-42522 Venipuncture Draw Fee 17:44:58 CDT CPT-75560 Cervical Min 4V - XRAY USE ONLY 09:01:40 CDT CPT-46387 Chest 2V Frontal and Lat - XRAY USE ONLY 11:06:31 CDT CPT-41140 EKG Trac and Interp - XRAY USE ONLY 11:31:43 CDT 08/26 CPT-J3420 Vitamin B12 1000mcg (Cyanocobalamin) 08:10:26 FIRST AID INSTRUCTOR 04/12 CPT-40838 Abx/Therapy Injection 08:10:26 FIRST AID INSTRUCTOR CPT-G0438 Initial Annual Wellness Exam 19:01:01 FIRST AID INSTRUCTOR CPT-J3420 Vitamin B12 1000mcg (Cyanocobalamin) 16:57:46 CDT 08/14 CPT-15875 Recombivax HB Injection Suspension 5 MCG/0.5ML 08:37:50 FIRST AID INSTRUCTOR CPT-25645 Immunization Single Admin 08:37:50 FIRST AID INSTRUCTOR CPT-J3420 Vitamin B12 1000mcg (Cyanocobalamin) 08:32:16 FIRST AID INSTRUCTOR 03/11 CPT-04605 Abx/Therapy Injection 08:32:16 FIRST AID INSTRUCTOR CPT-75423 Chest 2V Frontal and Lat 11:46:38 FIRST AID INSTRUCTOR CPT-61454 Venipuncture Draw Fee 09:12:45 FIRST AID INSTRUCTOR CPT-J3420 Vitamin B12 1000mcg (Cyanocobalamin) 08:50:15 FIRST AID INSTRUCTOR 02/08 CPT-06599 Abx/Therapy Injection 08:50:15 FIRST AID INSTRUCTOR CPT-Cryo Cryotherapy 10:19:35 FIRST AID INSTRUCTOR CPT-000 Give Appropriate Flu Vaccine 09:22:16 CDT CPT-J3420 Vitamin B12 1000mcg (Cyanocobalamin) 19:08:57 CDT 01/11 CPT-12388 Abx/Therapy Injection 19:08:57 CDT CPT-J3420 Vitamin B12 1000mcg (Cyanocobalamin) 08:19:08 CDT 12/11 CPT-45404 Abx/Therapy Injection 08:19:08 CDT CPT-J3420 Vitamin B12 1000mcg (Cyanocobalamin) 14:48:00 CDT 11/09 CPT-71474 Abx/Therapy Injection 14:47:59 CDT CPT-J3420 Vitamin B12 1000mcg (Cyanocobalamin) 08:34:04 CDT 10/09 CPT-57795 Abx/Therapy Injection 08:34:04 CDT CPT-J3420 Vitamin B12 1000mcg (Cyanocobalamin) 09:18:52 CDT 09/11 CPT-56979 Abx/Therapy Injection 09:18:52 CDT CPT-J3420 Vitamin B12 1000mcg (Cyanocobalamin) 08:35:44 CDT 09/04 CPT-66727 Abx/Therapy Injection 08:35:44 CDT CPT-14804 Immunization Single Admin 11:07:16 CDT CPT-68260 Hepatitis B adult IM 11:07:16 CDT CPT-J3420 Vitamin B12 1000mcg (Cyanocobalamin) 11:00:49 CDT 08/28 CPT-J1040 Depo Medrol 80 mg (Methyl Prednisolone Acetate) 11:00: 49 CDT CPT-00902 Abx/Therapy Injection 11:00:49 CDT CPT-J1040 Depo Medrol 80 mg (Methyl Prednisolone Acetate) 09:16: 23 CDT CPT-J3420 Vitamin B12 1000mcg (Cyanocobalamin) 08:27:05 CDT 08/20 CPT-60956 Abx/Therapy Injection 08:27:05 CDT CPT-53199 Recombivax HB Injection Suspension 5 MCG/0.5ML 10:00:41 CDT CPT-24993 Administration single or combination vaccine inc oral 10 :00:41 CDT CPT-00743 Sono transvag pelvis non OB uterus ovaries cervix 16:36: 57 CDT CPT-82720 LS spine comp w obliq 09:50:55 FIRST AID INSTRUCTOR CPT-15603 Abd compl w upright 09:50:55 FIRST AID INSTRUCTOR CPT-J1100 Decadron 4mg (Dexamethasone) 15:51:24 FIRST AID INSTRUCTOR CPT-J1030 Depo Medrol 40 mg (Methyl Prednisolone Acetate) 15:51: 24 FIRST AID INSTRUCTOR CPT-59754 Abx/Therapy Injection 15:51:24 FIRST AID INSTRUCTOR CPT-J1100 Decadron 4mg (Dexamethasone) 15:26:33 FIRST AID INSTRUCTOR CPT-J1030 Depo Medrol 40 mg (Methyl Prednisolone Acetate) 15:26: 33 FIRST AID INSTRUCTOR CPT-94497 Sono retroperitoneal complete kidneys and bladder 17:15: 30 CDT CPT-08654 Abd compl w upright 16:09:25 CDT CPT-J1100 Decadron 8mg (Dexamethasone) 17:07:57 CDT CPT-24952 Abx/Therapy Injection 17:07:57 CDT CPT-J1100 Decadron 8mg (Dexamethasone) 16:55:24 CDT CPT-83964 Chest 2V Frontal and Lat 16:32:44 CDT
--- OUTSIDE RECORDS SUMMARY | 2016-11-04 12:20 | XMS REPORT | Clinical Summary ---
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 V72.31 Active Suzan [...] Generic Name NDC Status Provider Patient Instruction TROPICAMIDE 0.5 % OPHTH SOLN 1 drop PRN eye spasms TROPICAMIDE 47258586670 Active Samantha Stephan RMA Active RISPERDAL 4 MG ORAL TABS 1 tab at bedtime RISPERIDONE 72731296317 Active Samantha Stephan RMA Active LEVAQUIN 500 MG TABS 1 daily for infection LEVOFLOXACIN 31240244285 Active Suzan Boo APRN Active TESSALON PERLES 100 MG CAPS 1 three times a day as needed for cough BENZONATATE 40316112597 Active Suzan Boo APRN Active ZOFRAN 4 MG TABS 1 po q6hr PRN Nausea ONDANSETRON HCL No Longer Active Suzan Boo APRN Active FLUTICASONE PROPIONATE 50 MCG/ACT SUSP 2 sprays each nostril daily before bed. FLUTICASONE PROPIONATE 52274860709 No Longer Active Suzan Boo APRN Active ASPIRIN 325 MG ORAL TABS 1 tab q.d ASPIRIN 01086826765 No Longer Active Suzan Boo APRN Active HALOPERIDOL 10 MG ORAL TABS 1 tab q.d HALOPERIDOL 92938387841 No Longer Active Suzan Boo APRN Active GUAIFENESIN-CODEINE 100-10 MG/5ML SYRP 5ml every 4 to 6 hours as needed for cough GUAIFENESIN-CODEINE 79607558160 No Longer Active Suzan Boo APRN Active ZITHROMAX Z-EARNEST 250 MG TABS 2 today and then 1 daily for 4 days AZITHROMYCIN 28180548685 No Longer Active Suzan Boo APRN Active PREDNISONE 10 MG TABS 2 daily for 5 days then 1 daily for 5 days PREDNISONE 41777491543 Active Suzan Boo APRN Active CLONAZEPAM 1 MG ORAL TABS 1 twice a day and an additional 1 tablet every other day as needed for pseudoseizures or anxiety CLONAZEPAM 33504287135 Active Ahmet Carbajal MD Active HYDROCODONE-ACETAMINOPHEN 5-325 MG ORAL TABS 1 tab two times a day HYDROCODONE-ACETAMINOPHEN 66764986944 No Longer Active Ahmet Carbajal MD Active LAMICTAL 100 MG ORAL TABS 1 tab 2 times qd. LAMOTRIGINE 21527878659 Active Ahmet Carbajal MD Active PREDNISONE 20 MG TABS 2 daily for 5 days then 1 daily for 5 days PREDNISONE 67850918934 No Longer Active Ahmet Carbajal MD Active FLUTICASONE PROPIONATE 50 MCG/ACT SUSP 1 to 2 sprays each nostril daily for allergies FLUTICASONE PROPIONATE 97417374458 Active Tila Valenzuela Active BENADRYL 25 MG CAP 4 po at bedtime for insomnia DIPHENHYDRAMINE HCL 57539158774 No Longer Active Ahmet Carbajal MD Active ADVAIR DISKUS 250-50 MCG/DOSE INH AEPB 1 puff twice a day for asthma FLUTICASONE-SALMETEROL 62581312706 No Longer Active Ahmet Carbajal MD Active KLONOPIN 1 MG ORAL TABS 1 tab po TID CLONAZEPAM 15761524541 No Longer Active Ahmet Carbajal MD Active ABILIFY MAINTENA 400 MG IM SUSR 400mg injection every 26 days ARIPIPRAZOLE 83484866661 No Longer Active Ahmet Carbajal MD Active TRAMADOL HCL 50 MG TABS 1/2-1 tab TID PRN TRAMADOL HCL 93833653701 No Longer Active Ahmet Carbajal MD Active BACTRIM DS 800-160 MG TABS 1 twice a day SULFAMETHOXAZOLE- TRIMETHOPRIM 09412688728 No Longer Active Ahmet Carbajal MD Active PROAIR HFA 108 (90 BASE) MCG/ACT AERS 2 puffs four times a day as needed 2015 ALBUTEROL SULFATE 03964854826 Active Ahmet Carbajal MD Active EQ NICOTINE 21 MG/24HR TRANS PT24 Apply daily to stop smoking NICOTINE 86856329426 Active Ahmet Carbajal MD Active MONISTAT 7 COMBO PACK WOODROW 100 & 2 MG-% (9GM) VAG KIT 1 applicatorful per vagina q pm x 7 MICONAZOLE NITRATE 44683036226 No Longer Active Ahmet Carbajal MD Active FLAGYL 500 MG TAB 1 tablet by mouth bid METRONIDAZOLE 42140508341 No Longer Active Ahmet Carbajal MD Active OXYCODONE HCL ER 10 MG ORAL T12A 1/2 tab by mouth every 4 hours prn OXYCODONE HCL 80321517195 No Longer Active Ahmet Carbajal MD Active METHYLPREDNISOLONE 4 MG ORAL TABS po daily METHYLPREDNISOLONE 06101774324 No Longer Active Ahmet Carbajal MD Active LEVOFLOXACIN 500 MG ORAL TABS po daily LEVOFLOXACIN 45462017840 No Longer Active Ahmet Carbajal MD Active VIIBRYD 10 MG ORAL TABS Take 1 tablet once a day VILAZODONE HCL 84996886319 No Longer Active Ahmet Carbajal MD Active TOPAMAX 50 MG ORAL TABS 1 tab twice daily TOPIRAMATE 76530404541 No Longer Active Ahmet Carbajal MD Active DICLOFENAC SODIUM 50 MG TBEC 1 tablet by mouth four times daily PRN Pain 2015 DICLOFENAC SODIUM 44495137761 No Longer Active Ahmet Carbajal MD Active ADZENYS XR-ODT 6.3 MG ORAL TBED 1 tab po daily for ADHD AMPHETAMINE 95376515251 No Longer Active Ahmet Carbajal MD Active CHANTIX 1 MG TABS 1 twice a day to help quit smoking VARENICLINE TARTRATE 28561647695 No Longer Active Dipika Burgos MD Active CHANTIX STARTING MONTH EARNEST 0.5 MG X 11 & 1 MG X 42 TABS take as directed 2015 VARENICLINE TARTRATE 76287000335 No Longer Active Dipika Burgos MD Active TESSALON PERLES 100 MG CAP 1 to 2 tablets by mouth 3 times daily as needed for cough BENZONATATE 40695850383 No Longer Active 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 APRN Active IMITREX 50 MG ORAL TABS 0.5 po x 1 PRN Headache. May repeat dose x 1 in 2 hours if needed SUMATRIPTAN SUCCINATE 80098295358 Active Ahmet Carbajal MD Active HYDROCODONE-ACETAMINOPHEN 5-325 MG TABS 1 to 2 four times a day as needed for pain use until can be seen by specialist HYDROCODONE- ACETAMINOPHEN 87342959464 No Longer Active Vishal Hui MD Active PROAIR HFA 108 (90 BASE) MCG/ACT AERS 2 puffs four times a day as needed 2015 ALBUTEROL SULFATE 22155058950 No Longer Active Vishal Hui MD Active PREDNISONE 20 MG TABS 2 daily for 5 days then 1 daily for 5 days PREDNISONE 77435357399 No Longer Active Vishal Hui MD Active ZITHROMAX Z-EARNEST 250 MG TABS 2 today and then 1 daily for 4 days AZITHROMYCIN 34599739892 No Longer Active Vishal Hui MD Active DICLOFENAC POTASSIUM TABS Take 1 tablet twice a day (pt. is not sure of the dose.) DICLOFENAC POTASSIUM TABS 90368421993 No Longer Active Vishal Hui MD Active VERAPAMIL HCL ER 120 MG ORAL CR-TABS Take 1 tablet by mouth twice a day. VERAPAMIL HCL 45385914787 Active Vishal Hui MD Active FLAGYL 500 MG TAB 1 tablet by mouth bid METRONIDAZOLE 67639600217 No Longer Active Vishal Hui MD Active VALIUM 5 MG TAB Take 1-2 tablets daily DIAZEPAM 85270721059 No Longer Active Fabiola Alex BUSINESS LAW PROFESSOR Active METOPROLOL TARTRATE 25 MG ORAL TABS 1/2 tablet twice daily for heart rate and blood pressure METOPROLOL TARTRATE 22684358479 No Longer Active Fabiola Johnson APRN Active MIRALAX ORAL POWD 17GMS DAILY IN WATER POLYETHYLENE GLYCOL 3350 84637746827 Active TAMARA Casey Active MIRALAX PACK 1 po qd PRN Constipation POLYETHYLENE GLYCOL 3350 54148756538 No Longer Active Ahmet Carbajal MD Active MINIPRESS 2 MG CAPS 4 cap po at night PRAZOSIN HCL 91441816241 No Longer Active Ahmet Carbajal MD Active PIROXICAM 20 MG CAPS 1 cap po qd PRN Pain PIROXICAM 72138452751 No Longer Active Ahmet Carbajal MD Active TRAMADOL HCL 50 MG TABS 1-2 po TID PRN Pain TRAMADOL HCL 22089748044 No Longer Active Ahmet Carbajal MD Active METOPROLOL TARTRATE 50 MG TAB 1 po bid METOPROLOL TARTRATE 54630857302 No Longer Active Ahmet Carbajal MD Active ABILIFY 15 MG ORAL TABS 1 tab daily ARIPIPRAZOLE 29410521962 No Longer Active Ahmet Carbajal MD Active PROZAC 20 MG ORAL CAPS 1 tab daily FLUOXETINE HCL 36398617253 No Longer Active Ahmet Carbajal MD Active AMBIEN 5 MG ORAL TABS 1 tab at bedtime ZOLPIDEM TARTRATE 33672778934 No Longer Active Ahmet Carbajal MD Active PREDNISONE 20 MG TAB 2 tabs daily for 4 days, 1 tab daily for 4 days, 1/2 tab daily for 4 days PREDNISONE 49051713088 No Longer Active Ahmet Carbajal MD Active KEFLEX 500 MG CAP 1 po TID x 10 days CEPHALEXIN 40323696449 No Longer Active Vishal Hui MD Active SAPHRIS 5 MG SUBL 1 po bid ASENAPINE MALEATE 43643224571 No Longer Active 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 BUSINESS LAW PROFESSOR Active LATUDA 80 MG TABS Take one by mouth daily LURASIDONE HCL 73008309919 No Longer Active Jillina Fradwightl BUSINESS LAW PROFESSOR Active AMLODIPINE BESYLATE 5 MG TABS 1 tablet by mouth daily AMLODIPINE BESYLATE 67639264646 No Longer Active 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 APRN Active AMITRIPTYLINE HCL 100 MG TAB one at hs AMITRIPTYLINE HCL 56157329212 No Longer Active Vishal Hui MD Active TRAZODONE HCL 100 MG TAB take 1 at bedtime TRAZODONE HCL 14081192546 No Longer Active Vishal Hui MD Active VYVANSE 40 MG CAPS 1 daily, LISDEXAMFETAMINE DIMESYLATE 66279962579 No Longer Active Vishal Hui MD Active IBUPROFEN 600 MG TAB 1 po TID PRN IBUPROFEN 43977901116 No Longer Active Vishal Hui MD Active PROZAC 20 MG CAP Take one by mouth daily FLUOXETINE HCL 02048707504 No Longer Active Vishal Hui MD Active BACTRIM DS 800-160 MG TABS 1 pill by mouth twice daily SULFAMETHOXAZOLE-TRIMETHOPRIM 89618664034 No Longer Active Sahara Rodriguez MD PhD Active DIFLUCAN 150 MG TAB 1 tablet by mouth daily FLUCONAZOLE 95107760202 No Longer Active Vishal Hui MD Active TIZANIDINE HCL 4 MG TABS 1 po q6hr PRN Muscle Spasm/Back Pain TIZANIDINE HCL 03039465243 Active Vishal Hui MD Active CLINDAMYCIN HCL 150 MG CAPS 1 four times a day CLINDAMYCIN HCL 26759116927 No Longer Active Neeraj Collins MD Active KEFLEX 500 MG ORAL CAPS 1 cap QID by mouth CEPHALEXIN 47679190200 No Longer Active Neeraj Collins MD Active DIFLUCAN 150 MG TABS 1 pill every other day x 2 doses FLUCONAZOLE 84077935659 No Longer Active Sahara Rodriguez MD PhD Active MELATONIN 3 MG CAPS 2 po q hs MELATONIN 81243135674 No Longer Active Sahara Rodriguez MD PhD Active MULTIVITAMINS CAPS Take one by mouth daily MULTIPLE VITAMIN 48321585696 No Longer Active Sahara Rodriguez MD PhD Active BACTRIM DS 800-160 MG TAB 1 tab by mouth twice daily TRIMETHOPRIM-SULFAMETHOXAZOLE 71136647030 No Longer Active Sahara Rodriguez MD PhD Active [employer] PROBIOTIC ORAL CHEW 2 daily po PROBIOTIC PRODUCT 14251744881 No Longer Active Sahara Rodriguez MD PhD Active BACTRIM DS 800-160 MG TABS 1 po BID x 7 days SULFAMETHOXAZOLE-TRIMETHOPRIM 02649259126 No Longer Active Vishal Hui MD Active CHANTIX STARTING MONTH EARNEST 0.5 MG X 11 & 1 MG X 42 TABS 0.5mg daily for 3 days , then 0.5mg BID for 4 days, then 1mg BID VARENICLINE TARTRATE 77709926607 No Longer Active TAMARA Gray Active VERAPAMIL HCL CR 120 MG TAB CR 1 po bid VERAPAMIL HCL 41343906914 No Longer Active Vishal Hui MD Active METOPROLOL SUCCINATE 50 MG TB24 1 tablet by mouth daily METOPROLOL SUCCINATE 92971730395 No Longer Active Vishal Hui MD Active SAPHRIS 10 MG SUBL 1 tab po bid ASENAPINE MALEATE 57752660676 No Longer Active Vishal Hui MD Active LISINOPRIL 20 MG TABS 1 tab po qd LISINOPRIL 98248852843 No Longer Active Vishal Hui MD Active LATUDA 20 MG TABS Take one by mouth daily LURASIDONE HCL 15677679537 No Longer Active Vishal Hui MD Active TRAZODONE HCL 50 MG TABS 1/2 tab po qd prn for anxiety TRAZODONE HCL 50113401071 No Longer Active Vishal Hui MD Active OMEPRAZOLE 20 MG TBEC 1 po q a.m. 30min prior to first food intake OMEPRAZOLE 17066218524 Active TAMARA Casey Active RANITIDINE HCL 150 MG CAPS 1 twice a day RANITIDINE HCL 34529757458 Active 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 APRN Active LINZESS 290 MCG CAPS Take one by mouth daily LINACLOTIDE 65803243620 No Longer Active Vishal Hui MD Active SAPHRIS 5 MG SUBL 1 tab po qd ASENAPINE MALEATE 45463221914 No Longer Active Vishal Hui MD Active ZALEPLON 10 MG CAPS 1 cap po every other night ZALEPLON 05192576655 No Longer Active Vishal Hui MD Active LYRICA 50 MG CAPS 1 tab po TID PREGABALIN 69638968009 No Longer Active Vishal Hui MD Active LORATADINE 10 MG TABS 1 tab po qd LORATADINE 91308600810 No Longer Active Vishal Hui MD Active VERAPAMIL HCL ER 180 MG CR-TABS 1 tab po bid VERAPAMIL HCL 63242616820 No Longer Active Vishal Hui MD Active MIRALAX POWD 1 capfull once daily POLYETHYLENE GLYCOL 3350 62419498229 No Longer Active Vishal Hui MD Active PREDNISONE 20 MG TABS 1 tab po qd PREDNISONE 66998912152 No Longer Active Renzo Thornton DO Active LEVOFLOXACIN 500 MG TABS 1 tab po qd LEVOFLOXACIN 17897224414 No Longer Active Renzo Thornton DO Active BUSPIRONE HCL 15 MG TABS 1 tab po TID BUSPIRONE HCL 31170486597 No Longer Active Renzo Thornton DO Active BENZTROPINE MESYLATE 1 MG TABS 1 tab po qd BENZTROPINE MESYLATE 55887249651 No Longer Active Renzo Thornton DO Active ATENOLOL 25 MG TABS 1 tab po qd ATENOLOL 25673282139 No Longer Active Renzo Thornton DO Active ESCITALOPRAM OXALATE 20 MG TABS 1 tab po qd ESCITALOPRAM OXALATE 94101277022 No Longer Active Renzo Thornton DO Active ADVAIR DISKUS 250-50 MCG/DOSE AEPB 1 puff BID FLUTICASONE-SALMETEROL 38719049518 No Longer Active Renzo Thornton DO Active PREDNISONE 20 MG TAB 2 tabs daily for 3 days, 1 tab daily for 3 days, 1/2 tab daily for 2 days PREDNISONE 47367293449 No Longer Active Vishal Hui MD Active CEFDINIR 300 MG CAPS by mouth twice a day CEFDINIR 29086359467 No Longer Active Vishal Hui MD Active LANSOPRAZOLE 30 MG CPDR 1 cap po qd LANSOPRAZOLE 84383960337 No Longer Active Vishal Hui MD Active BACLOFEN 20 MG TABS 1 tab po tid BACLOFEN 91377263620 No Longer Active Vishal Hui MD Active ADVAIR DISKUS 250-50 MCG/DOSE AEPB 1 puff BID ADVAIR DISKUS 250-50 MCG/DOSE AEPB FLUTICASONE-SALMETEROL Inactive ESCITALOPRAM OXALATE 20 MG TABS 1 tab po qd ESCITALOPRAM OXALATE 20 MG TABS 572937 ESCITALOPRAM OXALATE Inactive ATENOLOL 25 MG TABS 1 tab po qd ATENOLOL 25 MG TABS 562415 ATENOLOL Inactive BENZTROPINE MESYLATE 1 MG TABS 1 tab po qd BENZTROPINE MESYLATE 1 MG TABS 349985 BENZTROPINE MESYLATE Inactive BUSPIRONE HCL 15 MG TABS 1 tab po TID BUSPIRONE HCL 15 MG TABS 799065 BUSPIRONE HCL Inactive LEVOFLOXACIN 500 MG TABS 1 tab po qd LEVOFLOXACIN 500 MG TABS 532102 LEVOFLOXACIN Inactive PREDNISONE 20 MG TABS 1 tab po qd PREDNISONE 20 MG TABS 990475 PREDNISONE Inactive MIRALAX POWD 1 capfull once daily MIRALAX POWD 773047 POLYETHYLENE GLYCOL 3350 Inactive VERAPAMIL HCL ER 180 MG CR-TABS 1 tab po bid VERAPAMIL HCL ER 180 MG CR-TABS VERAPAMIL HCL Inactive LORATADINE 10 MG TABS 1 tab po qd LORATADINE 10 MG TABS 508542 LORATADINE Inactive LYRICA 50 MG CAPS 1 tab po TID LYRICA 50 MG CAPS PREGABALIN Inactive ZALEPLON 10 MG CAPS 1 cap po every other night ZALEPLON 10 MG CAPS 792720 ZALEPLON Inactive SAPHRIS 5 MG SUBL 1 tab po qd SAPHRIS 5 MG SUBL ASENAPINE MALEATE Inactive TRAZODONE HCL 50 MG TABS 1/2 tab po qd prn for anxiety TRAZODONE HCL 50 MG TABS 735826 TRAZODONE HCL Inactive LATUDA 20 MG TABS Take one by mouth daily LATUDA 20 MG TABS LURASIDONE HCL Inactive LISINOPRIL 20 MG TABS 1 tab po qd LISINOPRIL 20 MG TABS 555355 LISINOPRIL Inactive SAPHRIS 10 MG SUBL 1 [...] twice daily BACTRIM DS 800-160 MG TAB 302697 TRIMETHOPRIM-SULFAMETHOXAZOLE Inactive MULTIVITAMINS CAPS Take one by mouth daily MULTIVITAMINS CAPS MULTIPLE VITAMIN Inactive MELATONIN 3 MG CAPS 2 po q hs MELATONIN 3 MG CAPS 19950526 MELATONIN Inactive KEFLEX 500 MG ORAL CAPS 1 cap QID by mouth KEFLEX 500 MG ORAL CAPS 358046 CEPHALEXIN Inactive CLINDAMYCIN HCL 150 MG CAPS 1 four times a day CLINDAMYCIN HCL 150 MG CAPS 286838 CLINDAMYCIN HCL Inactive DIFLUCAN 150 MG TAB 1 tablet by mouth daily DIFLUCAN 150 MG TAB 223858 FLUCONAZOLE Inactive PROZAC 20 MG CAP Take one by mouth daily PROZAC 20 MG CAP 444464 FLUOXETINE HCL Inactive IBUPROFEN 600 MG TAB 1 po TID PRN IBUPROFEN 600 MG TAB 766225 IBUPROFEN Inactive VYVANSE 40 MG CAPS 1 daily, VYVANSE 40 MG CAPS LISDEXAMFETAMINE DIMESYLATE Inactive TRAZODONE HCL 100 MG TAB take 1 at bedtime TRAZODONE HCL 100 MG TAB 019937 TRAZODONE HCL Inactive AMITRIPTYLINE HCL 100 MG TAB one at hs AMITRIPTYLINE HCL 100 MG TAB 840145 AMITRIPTYLINE HCL Inactive AMLODIPINE BESYLATE 5 MG TABS 1 tablet by mouth daily AMLODIPINE BESYLATE 5 MG TABS 069970 AMLODIPINE BESYLATE Inactive LATUDA 80 MG TABS Take one by mouth daily LATUDA 80 MG TABS LURASIDONE HCL Inactive SAPHRIS 5 MG SUBL 1 po bid SAPHRIS 5 MG SUBL ASENAPINE MALEATE Inactive PREDNISONE 20 MG TAB 2 tabs daily for 4 days, 1 tab daily for 4 days, 1/2 tab daily for 4 days PREDNISONE 20 MG TAB 577649 PREDNISONE Inactive AMBIEN 5 MG ORAL TABS 1 tab at bedtime AMBIEN 5 MG ORAL TABS 537405 ZOLPIDEM TARTRATE Inactive PROZAC 20 MG ORAL CAPS 1 tab daily PROZAC 20 MG ORAL CAPS 167472 FLUOXETINE HCL Inactive ABILIFY 15 MG ORAL TABS 1 tab daily ABILIFY 15 MG ORAL TABS 168402 ARIPIPRAZOLE Inactive METOPROLOL TARTRATE 50 MG TAB 1 po bid METOPROLOL TARTRATE 50 MG TAB 716258 METOPROLOL TARTRATE Inactive TRAMADOL HCL 50 MG TABS 1-2 po TID PRN Pain TRAMADOL HCL 50 MG TABS 213675 TRAMADOL HCL Inactive PIROXICAM 20 MG CAPS 1 cap po qd PRN Pain PIROXICAM 20 MG CAPS 415878 PIROXICAM Inactive MINIPRESS 2 MG CAPS 4 cap po at night MINIPRESS 2 MG CAPS 984773 PRAZOSIN HCL Inactive MIRALAX PACK 1 po qd PRN Constipation MIRALAX PACK 575253 POLYETHYLENE GLYCOL 3350 Inactive METOPROLOL TARTRATE 25 MG ORAL TABS 1/2 tablet twice daily for heart rate and blood pressure METOPROLOL TARTRATE 25 MG ORAL TABS 939380 METOPROLOL TARTRATE Inactive VALIUM 5 MG TAB Take 1-2 tablets daily VALIUM 5 MG TAB 956898 DIAZEPAM Inactive FLAGYL 500 MG TAB 1 tablet by mouth bid FLAGYL 500 MG TAB 253109 METRONIDAZOLE Inactive DICLOFENAC POTASSIUM TABS Take 1 tablet twice a day (pt. is not sure of the dose.) DICLOFENAC POTASSIUM TABS DICLOFENAC POTASSIUM TABS Inactive ZITHROMAX Z-EARNEST 250 MG TABS 2 today and then 1 daily for 4 days ZITHROMAX Z-EARNEST 250 MG TABS 6421930 AZITHROMYCIN Inactive PREDNISONE 20 MG TABS 2 daily for 5 days then 1 daily for 5 days PREDNISONE 20 MG TABS 925273 PREDNISONE Inactive PROAIR HFA 108 (90 BASE) MCG/ACT AERS 2 puffs four times a day as needed 2015 PROAIR HFA 108 (90 BASE) MCG/ACT AERS ALBUTEROL SULFATE Inactive HYDROCODONE-ACETAMINOPHEN 5-325 MG TABS 1 to 2 four times a day as needed for pain use until can be seen by specialist HYDROCODONE- ACETAMINOPHEN 5-325 MG TABS 734592 HYDROCODONE-ACETAMINOPHEN Inactive TESSALON PERLES 100 MG CAP 1 to 2 tablets by mouth 3 times daily as needed for cough TESSALON PERLES 100 MG CAP 677735 BENZONATATE Inactive CHANTIX STARTING MONTH EARNEST 0.5 [...] Pain 2015 DICLOFENAC SODIUM 50 MG TBEC 140141 DICLOFENAC SODIUM Inactive TOPAMAX 50 MG ORAL TABS 1 tab twice daily TOPAMAX 50 MG ORAL TABS 273397 TOPIRAMATE Inactive VIIBRYD 10 MG ORAL TABS Take 1 tablet once a day VIIBRYD 10 MG ORAL TABS VILAZODONE HCL Inactive LEVOFLOXACIN 500 MG ORAL TABS po daily LEVOFLOXACIN 500 MG ORAL TABS 637134 LEVOFLOXACIN Inactive METHYLPREDNISOLONE 4 MG ORAL TABS po daily METHYLPREDNISOLONE 4 MG ORAL TABS 100617 METHYLPREDNISOLONE Inactive OXYCODONE HCL ER 10 MG ORAL T12A 1/2 tab by mouth every 4 hours prn OXYCODONE HCL ER 10 MG ORAL T12A OXYCODONE HCL Inactive FLAGYL 500 MG TAB 1 tablet by mouth bid FLAGYL 500 MG TAB 612263 METRONIDAZOLE Inactive MONISTAT 7 COMBO PACK WOODROW 100 & 2 MG-% (9GM) VAG KIT 1 applicatorful per vagina q pm x 7 MONISTAT 7 COMBO PACK WOODROW 100 & 2 MG-% (9GM) VAG KIT MICONAZOLE NITRATE Inactive BACTRIM DS 800-160 MG TABS 1 twice a day BACTRIM DS 800-160 MG TABS 643333 SULFAMETHOXAZOLE-TRIMETHOPRIM Inactive TRAMADOL HCL 50 MG TABS 1/2-1 tab TID PRN TRAMADOL HCL 50 MG TABS 290367 TRAMADOL HCL Inactive ABILIFY MAINTENA 400 MG IM SUSR 400mg injection every 26 days ABILIFY MAINTENA 400 MG IM SUSR ARIPIPRAZOLE Inactive KLONOPIN 1 MG ORAL TABS 1 tab po TID KLONOPIN 1 MG ORAL TABS 723479 CLONAZEPAM Inactive ADVAIR DISKUS 250-50 MCG/DOSE INH AEPB 1 puff twice a day for asthma ADVAIR DISKUS 250-50 MCG/DOSE INH AEPB FLUTICASONE- SALMETEROL Inactive BENADRYL 25 MG CAP 4 po at bedtime for insomnia BENADRYL 25 MG CAP DIPHENHYDRAMINE HCL Inactive PREDNISONE 20 MG TABS 2 daily for 5 days then 1 daily for 5 days PREDNISONE 20 MG TABS 175602 PREDNISONE Inactive HYDROCODONE-ACETAMINOPHEN 5-325 MG ORAL TABS 1 tab two times a day HYDROCODONE-ACETAMINOPHEN 5-325 MG ORAL TABS 406540 HYDROCODONE-ACETAMINOPHEN Inactive ZITHROMAX Z-EARNEST 250 MG TABS 2 today and then 1 daily for 4 days ZITHROMAX Z-EARNEST 250 MG TABS 4467800 AZITHROMYCIN Inactive GUAIFENESIN-CODEINE 100-10 MG/5ML SYRP 5ml every 4 to 6 hours as needed for cough GUAIFENESIN-CODEINE 100-10 MG/5ML SYRP 492502 GUAIFENESIN-CODEINE Inactive HALOPERIDOL 10 MG ORAL TABS 1 tab q.d HALOPERIDOL 10 MG ORAL TABS 646977 HALOPERIDOL Inactive ASPIRIN 325 MG ORAL TABS 1 tab q.d ASPIRIN 325 MG ORAL TABS 984902 ASPIRIN Inactive FLUTICASONE PROPIONATE 50 MCG/ACT SUSP 2 sprays each nostril daily before bed. FLUTICASONE PROPIONATE 50 MCG/ACT SUSP 8539764 FLUTICASONE PROPIONATE Inactive ZOFRAN 4 MG TABS 1 po q6hr PRN Nausea ZOFRAN 4 MG TABS 769199 ONDANSETRON HCL Inactive CEFDINIR 300 MG CAPS by mouth twice a day CEFDINIR 300 MG CAPS 572943 CEFDINIR Inactive PREDNISONE 20 MG TAB 2 tabs daily for 3 days, 1 tab daily for 3 days, 1/2 tab daily for 2 days PREDNISONE 20 MG TAB 230836 PREDNISONE Inactive BACTRIM DS 800-160 MG TABS 1 po BID x 7 days BACTRIM DS 800-160 MG TABS 19820521 SULFAMETHOXAZOLE-TRIMETHOPRIM Inactive DIFLUCAN 150 MG TABS 1 pill every other day x 2 doses DIFLUCAN 150 MG TABS 750189 FLUCONAZOLE Inactive BACTRIM DS 800-160 MG TABS 1 pill by mouth twice daily BACTRIM DS 800-160 MG TABS 19820521 SULFAMETHOXAZOLE-TRIMETHOPRIM Inactive KEFLEX 500 MG CAP 1 po TID x 10 days KEFLEX 500 MG CAP 999124 CEPHALEXIN Inactive Advance Directives Directive Description Start Date DISCUSSED WITH PATIENT -- NO DECISION MADE Vital Signs Date Name Value Unit Range Description blood pressure, diastolic - 8462-4 99 mm[Hg] [...] pressure, diastolic - 8462-4 79 mm[Hg] BP mcnalyl blood pressure, systolic - 8480-6 114 mm[Hg] [...] % 11.0-15.0 platelet count 443 THOUSAND/UL 10*3/mm3 414-204 0742/03/01 mean platelet volume 8.2 fL 7.5-12.5 Lab [...] 369 10^3/MM^3 10*3/mm3 142-424 Lab Report: Chlamydia/GC APTIMA/[id number] - Lab chlamydia DNA probe NOT DETECTED NOT DETECTED Lab Report: Chlamydia/GC APTIMA/[id number] - Microbiology Neisseria gonorrhoeae DNA probe NOT DETECTED NOT DETECTED Lab Report: Chlamydia/GC APTIMA/[id number], Urinalysis, Complete, with Reflex ... - Lab chlamydia DNA probe NOT DETECTED NOT DETECTED Lab Report: Chlamydia/GC APTIMA/[id number], Urinalysis, Complete, with Reflex ... - Microbiology Neisseria gonorrhoeae DNA probe NOT DETECTED NOT DETECTED Lab Report: Chlamydia/GC APTIMA/[id number], Urinalysis, Complete, with Reflex ... - Urinalysis microalbumin/total urine volume 2 mg/L Units converted. See lab report for original value. microalbumin/creatinine ratio, urine 9 MCG/MG CREAT mg/L <30 Lab Report: Comp. Metabolic Panel - Chemistry sodium, serum 142 mmol/L 628-143 3840/06/08 carbon dioxide, venous blood 27.6 mmol/L 21.0-32.0 potassium, serum 4.0 mmol/L 3.5-5.2 chloride, serum 105 mmol/L 98-107 blood glucose 95 mg/dL 65-110 urea nitrogen, blood 8 mg/dL 7-18 creatinine, serum 0.75 mg/dL 0.55-1.30 alanine aminotransferase (SGPT), serum 49 U/L 12-78 aspartate aminotransferase (SGOT), serum 28 U/L 15-37 calcium, serum 9.4 mg/dL 8.5-10.1 bilirubin, serum, total 0.30 mg/dL 0.00-1.00 sodium, serum 140 mmol/L 170-361 8691/08/08 carbon dioxide, venous blood 33.7 mmol/L 21.0-32.0 [...] mg/dL Encounters Code Encounter Date Provider Facility CPT-47154 Level 3 Est. Patient 15:28:23 SOIL TECHNOLOGIST Suzan Boo [facility][note 3] CPT-54319 Level 4 Est. Patient 10:20:54 SOIL TECHNOLOGIST Suzan Boo [facility][note 3] CPT-21870 Level 3 Est. Patient 11:47:37 SOIL TECHNOLOGIST Ahmet Carbajal MD [facility] CPT-18821 Level 3 Est. Patient 10:40:11 SOIL TECHNOLOGIST Ahmet Carbajal MD [facility] CPT-24416 Level 3 Est. Patient 15:07:06 SOIL TECHNOLOGIST Neeraj Collins MD [facility] CPT-46478 Level 4 Est. Patient 14:45:00 SOIL TECHNOLOGIST Ahmet Carbajal MD [facility] CPT-75689 Level 3 Est. Patient 13:59:59 CDT 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 [facility] [place][note 3] CPT-20050 Level 3 Est. Patient 18:18:53 CDT Neeraj Collins MD [facility] CPT-85049 Level 3 Est. Patient 15:50:44 CDT Vishal Hui MD [facility] CPT-80746 Level 3 Est. Patient 11:36:17 CDT Ahmet Carbajal MD [facility] CPT-49801 Level 3 Est. Patient 13:29:16 CDT Vishal Hui MD [facility] CPT-54971 Level 3 Est. Patient 14:27:52 CDT Neeraj Collins MD [facility] CPT-38034 Level 3 Est. Patient 08:56:03 CDT 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 [facility][note 3] CPT-08976 Level 4 Est. Patient 12:11:48 CDT Fabiola Johnson APRN [facility] CPT-99414 Level 3 New Patient 16:53:37 CDT Albert Caldera MD [facility] CPT-88931 Level 3 Est. Patient 11:25:49 CDT Renzo Thornton DO [facility] CPT-61289 Level 3 Est. Patient 15:22:01 CDT Ahmet Carbajal MD [facility] CPT-15637 Level 4 Est. Patient 09:00:51 SOIL TECHNOLOGIST Vishal Hui MD [facility] CPT-33696 Level 3 Est. Patient 11:37:33 SOIL TECHNOLOGIST Vishal Hui MD [facility] CPT-66444 Level 3 Est. Patient 08:41:09 SOIL TECHNOLOGIST Vishal Hui MD [facility] CPT-94496 Level 4 Est. Patient 10:19:35 SOIL TECHNOLOGIST Vishal Hui MD [facility] CPT-02328 Level 3 Est. Patient 13:35:45 CDT Vishal Hui MD [facility] CPT-50507 Level 4 Est. Patient 10:08:37 CDT Vishal Hui MD [facility] CPT-81078 Level 3 Est. Patient 11:22:10 CDT Vishal Hui MD [facility] CPT-36330 Level 3 Est. Patient 11:03:32 CDT Sahara Rodriguez MD PhD [facility] CPT-46699 Level 3 Est. Patient 09:41:35 CDT Vishal Hui MD [facility] CPT-88794 Level 3 Est. Patient 12:00:41 CDT Neeraj Collins MD [facility] CPT-18357 Level 3 Est. Patient 09:16:24 CDT Vishal Hui MD [facility] CPT-95221 Level 4 Est. Patient 13:59:09 CDT Neeraj Collins MD [facility] CPT-02201 Level 3 Est. Patient 15:19:43 CDT Renzo Thornton [facility] CPT-33438 Level 3 Est. Patient 18:10:26 CDT Sahara Rodriguez MD PhD [facility] CPT-71654 Level 3 Est. Patient 14:49:50 CDT Vishal Hui MD [facility] CPT-06639 Level 4 Est. Patient 18:41:46 CDT Neeraj Collins MD [facility] CPT-56540 Level 4 Est. Patient 09:18:38 SOIL TECHNOLOGIST Vishal Hui MD [facility] CPT-19312 Level 3 Est. Patient 14:43:55 SOIL TECHNOLOGIST Vishal Hui MD [facility] CPT-82732 Level 3 Est. Patient 15:26:33 SOIL TECHNOLOGIST Sahara Rodriguez MD PhD [facility] CPT-06999 Level 3 Est. Patient 10:32:14 SOIL TECHNOLOGIST Vishal Hui MD [facility] CPT-72913 Level 3 Est. Patient 15:12:52 SOIL TECHNOLOGIST Vishal Hui MD [facility] CPT-68118 Level 4 Est. Patient 09:19:27 CDT Vishal Hui MD [facility] CPT-71055 Level 3 Est. Patient 15:53:00 CDT Renzo Thornton [facility] CPT-83660 Level 3 Est. Patient 15:50:30 CDT Renzo Thornton [facility] CPT-60153 Level 3 Est. Patient 16:55:24 CDT Vishal Hui MD [facility] Procedures Code Procedure Name Date Entry Date Standard Description CPT-G0439 [facility] Annual Wellness Exam 09:30:58 SOIL TECHNOLOGIST CPT-48874 TSH - LAB USE ONLY 08:50:26 SOIL TECHNOLOGIST CPT-23949 CBC - LAB USE ONLY 08:50:26 SOIL TECHNOLOGIST CPT-48057 Venipuncture Draw Fee 08:50:26 SOIL TECHNOLOGIST CPT-49569 Abx/Therapy Injection 17:34:30 SOIL TECHNOLOGIST CPT-49484 Nexplanon Removal with Reinsertion 14:09:32 CDT CPT-J7307 Nexplanon (Implant) 14:09:32 CDT CPT-OV Office Visit 14:09:32 CDT CPT-95217 UA w micro - LAB USE ONLY 16:21:13 CDT CPT-78838 Wet Mount - LAB USE ONLY 16:21:13 CDT CPT-38648 First Vx - Ix admin for Medicare patients 14:37:47 CDT CPT-83248 Fluzone Preservative Free Intramuscular Suspension 14:37 :47 CDT CPT-85387 Abx/Therapy Injection 13:54:22 CDT CPT-92497 Abx/Therapy Injection 08:47:09 CDT CPT-46573 Abx/Therapy Injection 13:29:56 CDT CPT-90655 Abx/Therapy Injection 08:36:16 CDT CPT-71955 Wet Mount - LAB USE ONLY 17:44:58 CDT CPT-94123 UA w micro - LAB USE ONLY 17:44:58 CDT CPT-26674 CMP - LAB USE ONLY 17:44:58 CDT CPT-04573 Venipuncture Draw Fee 17:44:58 CDT CPT-37424 Cervical Min 4V - XRAY USE ONLY 09:01:40 CDT CPT-72141 Chest 2V Frontal and Lat - XRAY USE ONLY 11:06:31 CDT CPT-65561 EKG Trac and Interp - XRAY USE ONLY 11:31:43 CDT 08/26 CPT-J3420 Vitamin B12 1000mcg (Cyanocobalamin) 08:10:26 SOIL TECHNOLOGIST 04/12 CPT-83608 Abx/Therapy Injection 08:10:26 SOIL TECHNOLOGIST CPT-G0438 Initial Annual Wellness Exam 19:01:01 SOIL TECHNOLOGIST CPT-J3420 Vitamin B12 1000mcg (Cyanocobalamin) 16:57:46 CDT 08/14 CPT-97521 Recombivax HB Injection Suspension 5 MCG/0.5ML 08:37:50 SOIL TECHNOLOGIST CPT-24747 Immunization Single Admin 08:37:50 SOIL TECHNOLOGIST CPT-J3420 Vitamin B12 1000mcg (Cyanocobalamin) 08:32:16 SOIL TECHNOLOGIST 03/11 CPT-70918 Abx/Therapy Injection 08:32:16 SOIL TECHNOLOGIST CPT-00624 Chest 2V Frontal and Lat 11:46:38 SOIL TECHNOLOGIST CPT-56062 Venipuncture Draw Fee 09:12:45 SOIL TECHNOLOGIST CPT-J3420 Vitamin B12 1000mcg (Cyanocobalamin) 08:50:15 SOIL TECHNOLOGIST 02/08 CPT-60586 Abx/Therapy Injection 08:50:15 SOIL TECHNOLOGIST CPT-Cryo Cryotherapy 10:19:35 SOIL TECHNOLOGIST CPT-000 Give Appropriate Flu Vaccine 09:22:16 CDT CPT-J3420 Vitamin B12 1000mcg (Cyanocobalamin) 19:08:57 CDT 01/11 CPT-06794 Abx/Therapy Injection 19:08:57 CDT CPT-J3420 Vitamin B12 1000mcg (Cyanocobalamin) 08:19:08 CDT 12/11 CPT-02234 Abx/Therapy Injection 08:19:08 CDT CPT-J3420 Vitamin B12 1000mcg (Cyanocobalamin) 14:48:00 CDT 11/09 CPT-77923 Abx/Therapy Injection 14:47:59 CDT CPT-J3420 Vitamin B12 1000mcg (Cyanocobalamin) 08:34:04 CDT 10/09 CPT-59340 Abx/Therapy Injection 08:34:04 CDT CPT-J3420 Vitamin B12 1000mcg (Cyanocobalamin) 09:18:52 CDT 09/11 CPT-60481 Abx/Therapy Injection 09:18:52 CDT CPT-J3420 Vitamin B12 1000mcg (Cyanocobalamin) 08:35:44 CDT 09/04 CPT-69939 Abx/Therapy Injection 08:35:44 CDT CPT-35052 Immunization Single Admin 11:07:16 CDT CPT-68814 Hepatitis B adult IM 11:07:16 CDT CPT-J3420 Vitamin B12 1000mcg (Cyanocobalamin) 11:00:49 CDT 08/28 CPT-J1040 Depo Medrol 80 mg (Methyl Prednisolone Acetate) 11:00: 49 CDT CPT-03604 Abx/Therapy Injection 11:00:49 CDT CPT-J1040 Depo Medrol 80 mg (Methyl Prednisolone Acetate) 09:16: 23 CDT CPT-J3420 Vitamin B12 1000mcg (Cyanocobalamin) 08:27:05 CDT 08/20 CPT-08989 Abx/Therapy Injection 08:27:05 CDT CPT-53755 Recombivax HB Injection Suspension 5 MCG/0.5ML 10:00:41 CDT CPT-73724 Administration single or combination vaccine inc oral 10 :00:41 CDT CPT-08046 Sono transvag pelvis non OB uterus ovaries cervix 16:36: 57 CDT CPT-49247 LS spine comp w obliq 09:50:55 SOIL TECHNOLOGIST CPT-96412 Abd compl w upright 09:50:55 SOIL TECHNOLOGIST CPT-J1100 Decadron 4mg (Dexamethasone) 15:51:24 SOIL TECHNOLOGIST CPT-J1030 Depo Medrol 40 mg (Methyl Prednisolone Acetate) 15:51: 24 SOIL TECHNOLOGIST CPT-76172 Abx/Therapy Injection 15:51:24 SOIL TECHNOLOGIST CPT-J1100 Decadron 4mg (Dexamethasone) 15:26:33 SOIL TECHNOLOGIST CPT-J1030 Depo Medrol 40 mg (Methyl Prednisolone Acetate) 15:26: 33 SOIL TECHNOLOGIST CPT-89329 Sono retroperitoneal complete kidneys and bladder 17:15: 30 CDT CPT-43547 Abd compl w upright 16:09:25 CDT CPT-J1100 Decadron 8mg (Dexamethasone) 17:07:57 CDT CPT-76420 Abx/Therapy Injection 17:07:57 CDT CPT-J1100 Decadron 8mg (Dexamethasone) 16:55:24 CDT CPT-82131 Chest 2V Frontal and Lat 16:32:44 CDT
--- OUTSIDE RECORDS SUMMARY | 2016-11-04 12:23 | XMS REPORT | Clinical Summary ---
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 V72.31 Active Suzan Boo [...] urination 788.1 Active Suzan Boo APRN Dysuria Anxiety Disorder ICD-300.00 Inactive Vishal Hui MD Pneumonia, organism unspecified ICD-486 Inactive Vishal Hui MD Flank pain, right ICD-789.09 Inactive Vishal Hui MD G E R D ICD-530.81 Inactive Vishal Hui MD Health screening ICD-V70.0 Inactive Suzan Boo CUSTOMER SOLUTIONS ARCHITECT Sinus tachycardia ICD-427.89 Inactive Suzan Boo CUSTOMER SOLUTIONS ARCHITECT Abdominal pain ICD-789.00 Inactive Vishal Hui MD [...] removal of sutures ICD-V58.32 Jim Hui MD Smoker/tobacco use disorder-smoking cessation discussed ICD-305.1 Jim Hui MD Personality change ICD-301.9 Inactive Vishal Hui MD Leukocytosis ICD-288.60 Inactive Vishal Hui MD UTI ICD-599.0 Inactive Vishal Hui MD Hot flashes ICD-627.2 Inactive Vishal Hui MD Elevated blood glucose ICD-790.29 Inactive Vishal Hui MD Lipoma ICD-214.9 Inactive Albert Caldera MD Abdominal pain, RUQ ICD-789.01 Inactive Albert Caldera MD Chest pain, acute ICD-786.50 Inactive Albert Caldera MD Headache, atypical ICD-784.0 Inactive Albert Caldera MD Gait unsteady ICD-781.2 Inactive Albert Caldera MD Nocturnal hypoxia ICD-799.02 [...] Patient Instruction DIFLUCAN 150 MG TABS 1 by mouth for yeast FLUCONAZOLE 72209950698 Active Suzan Boo APRN Active BACTRIM DS 800-160 MG TABS 1 twice a day SULFAMETHOXAZOLE- TRIMETHOPRIM 23992678295 Active Suzan Boo APRN Active EQ NICOTINE 21 MG/24HR TRANS PT24 Apply daily to stop smoking NICOTINE 74312553275 No Longer Active Suzan Boo APRN Active PREDNISONE 10 MG TABS 2 daily for 5 days then 1 daily for 5 days PREDNISONE 14727336662 No Longer Active Suzan Boo APRN Active LEVAQUIN 500 MG TABS 1 daily for infection LEVOFLOXACIN 15580003737 No Longer Active Suzan Boo APRN Active TROPICAMIDE 0.5 % OPHTH SOLN 1 drop PRN eye spasms TROPICAMIDE 53472048132 No Longer Active Suzan Boo APRN Active PREDNISONE 20 MG TAB 1 tablet daily x 4 days PREDNISONE 63546890901 No Longer Active Suzan Boo APRN Active ACETAMINOPHEN-CODEINE 120-12 MG/5ML SOLN 5 ml by mouth every 4-6 hours if needed for cough ACETAMINOPHEN-CODEINE 73921331860 No Longer Active Szuan Boo APRN Active KEFLEX 500 MG CAP 1 po qid CEPHALEXIN 40293053299 No Longer Active Suzan Boo APRN Active FLOVENT HFA 110 MCG/ACT AERO 2 puffs inhaled b.i.d. FLUTICASONE PROPIONATE HFA 87185792441 Active Renzo Thornton DO Active RISPERDAL 4 MG ORAL TABS 1 tab at bedtime RISPERIDONE 00436791879 Active Samantha Stephan RMA Active TESSALON PERLES 100 MG CAPS 1 three times a day as needed for cough BENZONATATE 30637017890 Active Suzan Boo APRN Active ZOFRAN 4 MG TABS 1 po q6hr PRN Nausea ONDANSETRON HCL No Longer Active Suzan Boo APRN Active FLUTICASONE PROPIONATE 50 MCG/ACT SUSP 2 sprays each nostril daily before bed. FLUTICASONE PROPIONATE 72937865213 No Longer Active Suzan Boo APRN Active ASPIRIN 325 MG ORAL TABS 1 tab q.d ASPIRIN 69719856719 No Longer Active Suzan Boo APRN Active HALOPERIDOL 10 MG ORAL TABS 1 tab q.d HALOPERIDOL 38914581147 No Longer Active Suzan Boo APRN Active GUAIFENESIN-CODEINE 100-10 MG/5ML SYRP 5ml every 4 to 6 hours as needed for cough GUAIFENESIN-CODEINE 96792506082 No Longer Active Suzan Boo APRN Active ZITHROMAX Z-EARNEST 250 MG TABS 2 today and then 1 daily for 4 days AZITHROMYCIN 42326889745 No Longer Active Suzan Boo APRN Active CLONAZEPAM 1 MG ORAL TABS 1 twice a day and an additional 1 tablet every other day as needed for pseudoseizures or anxiety CLONAZEPAM 34628632896 Active Ahmet Carbajal MD Active HYDROCODONE-ACETAMINOPHEN 5-325 MG ORAL TABS 1 tab two times a day HYDROCODONE-ACETAMINOPHEN 13229703105 No Longer Active Ahmet Carbajal MD Active LAMICTAL 100 MG ORAL TABS 1 tab 2 times qd. LAMOTRIGINE 96804737006 Active Ahmet Carbajal MD Active PREDNISONE 20 MG TABS 2 daily for 5 days then 1 daily for 5 days PREDNISONE 85671195584 No Longer Active Ahmet Carbajal MD Active FLUTICASONE PROPIONATE 50 MCG/ACT SUSP 1 to 2 sprays each nostril daily for allergies FLUTICASONE PROPIONATE 77529266559 Active Tila Valenzuela Active BENADRYL 25 MG CAP 4 po at bedtime for insomnia DIPHENHYDRAMINE HCL 02899014611 No Longer Active Ahmet Carbajal MD Active ADVAIR DISKUS 250-50 MCG/DOSE INH AEPB 1 puff twice a day for asthma FLUTICASONE-SALMETEROL 15259089974 No Longer Active Ahmet Carbajal MD Active KLONOPIN 1 MG ORAL TABS 1 tab po TID CLONAZEPAM 53488166203 No Longer Active Ahmet Carbajal MD Active ABILIFY MAINTENA 400 MG IM SUSR 400mg injection every 26 days ARIPIPRAZOLE 00212783072 No Longer Active Ahmet Carbajal MD Active TRAMADOL HCL 50 MG TABS 1/2-1 tab TID PRN TRAMADOL HCL 44171077862 No Longer Active Ahmet Carbajal MD Active BACTRIM DS 800-160 MG TABS 1 twice a day SULFAMETHOXAZOLE- TRIMETHOPRIM 03049210798 No Longer Active Ahmet Carbajal MD Active PROAIR HFA 108 (90 BASE) MCG/ACT AERS 2 puffs four times a day as needed 2015 ALBUTEROL SULFATE 04151218305 Active Ahmet Carbajal MD Active MONISTAT 7 COMBO PACK WOODROW 100 & 2 MG-% (9GM) VAG KIT 1 applicatorful per vagina q pm x 7 MICONAZOLE NITRATE 38551457210 No Longer Active Ahmet Carbajal MD Active FLAGYL 500 MG TAB 1 tablet by mouth bid METRONIDAZOLE 38272761912 No Longer Active Ahmet Carbajal MD Active OXYCODONE HCL ER 10 MG ORAL T12A 1/2 tab by mouth every 4 hours prn OXYCODONE HCL 94731635472 No Longer Active Ahmet Carbajal MD Active METHYLPREDNISOLONE 4 MG ORAL TABS po daily METHYLPREDNISOLONE 01029295433 No Longer Active Ahmet Carbajal MD Active LEVOFLOXACIN 500 MG ORAL TABS po daily LEVOFLOXACIN 34671781517 No Longer Active Ahmet Carbajal MD Active VIIBRYD 10 MG ORAL TABS Take 1 tablet once a day VILAZODONE HCL 66285920476 No Longer Active Ahmet Carbajal MD Active TOPAMAX 50 MG ORAL TABS 1 tab twice daily TOPIRAMATE 97702305687 No Longer Active Ahmet Carbajal MD Active DICLOFENAC SODIUM 50 MG TBEC 1 tablet by mouth four times daily PRN Pain 2015 DICLOFENAC SODIUM 28715355698 No Longer Active Ahmet Carbajal MD Active ADZENYS XR-ODT 6.3 MG ORAL TBED 1 tab po daily for ADHD AMPHETAMINE 02375506736 No Longer Active Ahmet Carbajal MD Active CHANTIX 1 MG TABS 1 twice a day to help quit smoking VARENICLINE TARTRATE 05191197279 No Longer Active Dipika Burgos MD Active CHANTIX STARTING MONTH EARNEST 0.5 MG X 11 & 1 MG X 42 TABS take as directed 2015 VARENICLINE TARTRATE 70449789925 No Longer Active Dipika Burgos MD Active TESSALON PERLES 100 MG CAP 1 to 2 tablets by mouth 3 times daily as needed for cough BENZONATATE 14892690037 No Longer Active 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 APRN Active IMITREX 50 MG ORAL TABS 0.5 po x 1 PRN Headache. May repeat dose x 1 in 2 hours if needed SUMATRIPTAN SUCCINATE 26447239661 Active Ahmet Carbajal MD Active HYDROCODONE-ACETAMINOPHEN 5-325 MG TABS 1 to 2 four times a day as needed for pain use until can be seen by specialist HYDROCODONE- ACETAMINOPHEN 31055415136 No Longer Active Vishal Hui MD Active PROAIR HFA 108 (90 BASE) MCG/ACT AERS 2 puffs four times a day as needed 2015 ALBUTEROL SULFATE 31806904330 No Longer Active Vishal Hui MD Active PREDNISONE 20 MG TABS 2 daily for 5 days then 1 daily for 5 days PREDNISONE 81065220867 No Longer Active Vishal Hui MD Active ZITHROMAX Z-EARNEST 250 MG TABS 2 today and then 1 daily for 4 days AZITHROMYCIN 82105838287 No Longer Active Vishal Hui MD Active DICLOFENAC POTASSIUM TABS Take 1 tablet twice a day (pt. is not sure of the dose.) DICLOFENAC POTASSIUM TABS 81884840700 No Longer Active Vishal Hui MD Active VERAPAMIL HCL ER 120 MG ORAL CR-TABS Take 1 tablet by mouth twice a day. VERAPAMIL HCL 65563478664 Active Vishal Hui MD Active FLAGYL 500 MG TAB 1 tablet by mouth bid METRONIDAZOLE 76076386737 No Longer Active Vishal Hui MD Active VALIUM 5 MG TAB Take 1-2 tablets daily DIAZEPAM 08756252559 No Longer Active Fabiola Johnson APRN Active METOPROLOL TARTRATE 25 MG ORAL TABS 1/2 tablet twice daily for heart rate and blood pressure METOPROLOL TARTRATE 79747418951 No Longer Active Fabiola Johnson APRN Active MIRALAX ORAL POWD 17GMS DAILY IN WATER POLYETHYLENE GLYCOL 3350 45582969303 Active Berthaelif Kirby TAMARA Active MIRALAX PACK 1 po qd PRN Constipation POLYETHYLENE GLYCOL 3350 78853042239 No Longer Active Ahmet Carbajal MD Active MINIPRESS 2 MG CAPS 4 cap po at night PRAZOSIN HCL 79475657371 No Longer Active Ahmet Carbajal MD Active PIROXICAM 20 MG CAPS 1 cap po qd PRN Pain PIROXICAM 57726786933 No Longer Active Ahmet Carbajal MD Active TRAMADOL HCL 50 MG TABS 1-2 po TID PRN Pain TRAMADOL HCL 58786355211 No Longer Active Ahmet Carbajal MD Active METOPROLOL TARTRATE 50 MG TAB 1 po bid METOPROLOL TARTRATE 27972933098 No Longer Active Ahmet Carbajal MD Active ABILIFY 15 MG ORAL TABS 1 tab daily ARIPIPRAZOLE 75671954860 No Longer Active Ahmet Carbajal MD Active PROZAC 20 MG ORAL CAPS 1 tab daily FLUOXETINE HCL 40307231204 No Longer Active Ahmet Carbajal MD Active AMBIEN 5 MG ORAL TABS 1 tab at bedtime ZOLPIDEM TARTRATE 86792207069 No Longer Active Ahmet Carbajal MD Active PREDNISONE 20 MG TAB 2 tabs daily for 4 days, 1 tab daily for 4 days, 1/2 tab daily for 4 days PREDNISONE 72701541255 No Longer Active Ahmet Carbajal MD Active KEFLEX 500 MG CAP 1 po TID x 10 days CEPHALEXIN 58166686484 No Longer Active Vishal Hui MD Active SAPHRIS 5 MG SUBL 1 po bid ASENAPINE MALEATE 03251519949 No Longer Active 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 APRN Active LATUDA 80 MG TABS Take one by mouth daily LURASIDONE HCL 51393408056 No Longer Active Jillina Fralebron CUSTOMER SOLUTIONS ARCHITECT Active AMLODIPINE BESYLATE 5 MG TABS 1 tablet by mouth daily AMLODIPINE BESYLATE 99811823457 No Longer Active Tatajanee Mauricio NORIEGA Active AMITRIPTYLINE HCL 100 MG TAB one at hs AMITRIPTYLINE HCL 28175601151 No Longer Active Vishal Hui MD Active TRAZODONE HCL 100 MG TAB take 1 at bedtime TRAZODONE HCL 35507787810 No Longer Active Vishal Hui MD Active VYVANSE 40 MG CAPS 1 daily, LISDEXAMFETAMINE DIMESYLATE 37763815674 No Longer Active Vishal Hui MD Active IBUPROFEN 600 MG TAB 1 po TID PRN IBUPROFEN 05593650460 No Longer Active Vishal Hui MD Active PROZAC 20 MG CAP Take one by mouth daily FLUOXETINE HCL 19878106345 No Longer Active Vishal Hui MD Active BACTRIM DS 800-160 MG TABS 1 pill by mouth twice daily SULFAMETHOXAZOLE-TRIMETHOPRIM 26455147451 No Longer Active Sahara Rodriguez MD PhD Active DIFLUCAN 150 MG TAB 1 tablet by mouth daily FLUCONAZOLE 08768381229 No Longer Active Vishal Hui MD Active TIZANIDINE HCL 4 MG TABS 1 po q6hr PRN Muscle Spasm/Back Pain TIZANIDINE HCL 38847120876 Active Vishal Hui MD Active CLINDAMYCIN HCL 150 MG CAPS 1 four times a day CLINDAMYCIN HCL 20038986768 No Longer Active Neeraj Collins MD Active KEFLEX 500 MG ORAL CAPS 1 cap QID by mouth CEPHALEXIN 84139591591 No Longer Active Neeraj Collins MD Active DIFLUCAN 150 MG TABS 1 pill every other day x 2 doses FLUCONAZOLE 54884513575 No Longer Active Sahara Rodriguez MD PhD Active MELATONIN 3 MG CAPS 2 po q hs MELATONIN 23461936196 No Longer Active Sahara Rodriguez MD PhD Active MULTIVITAMINS CAPS Take one by mouth daily MULTIPLE VITAMIN 86760455067 No Longer Active Sahara Rodriguez MD PhD Active BACTRIM DS 800-160 MG TAB 1 tab by mouth twice daily TRIMETHOPRIM-SULFAMETHOXAZOLE 58892834789 No Longer Active Sahara Rodriguez MD PhD Active [facility] PROBIOTIC ORAL CHEW 2 daily po PROBIOTIC PRODUCT 41171484825 No Longer Active Sahara Rodriguez MD PhD Active BACTRIM DS 800-160 MG TABS 1 po BID x 7 days SULFAMETHOXAZOLE-TRIMETHOPRIM 47544047034 No Longer Active Vishal Hui MD Active CHANTIX STARTING MONTH EARNEST 0.5 MG X 11 & 1 MG X 42 TABS 0.5mg daily for 3 days , then 0.5mg BID for 4 days, then 1mg BID VARENICLINE TARTRATE 79140197103 No Longer Active TAMARA Gray Active VERAPAMIL HCL CR 120 MG TAB CR 1 po bid VERAPAMIL HCL 15902588144 No Longer Active Vishal Hui MD Active METOPROLOL SUCCINATE 50 MG TB24 1 tablet by mouth daily METOPROLOL SUCCINATE 12096086277 No Longer Active Vishal Hui MD Active SAPHRIS 10 MG SUBL 1 tab po bid ASENAPINE MALEATE 05408162767 No Longer Active Vishal Hui MD Active LISINOPRIL 20 MG TABS 1 tab po qd LISINOPRIL 14476130532 No Longer Active Vishal Hui MD Active LATUDA 20 MG TABS Take one by mouth daily LURASIDONE HCL 45741932314 No Longer Active Vishal Hui MD Active TRAZODONE HCL 50 MG TABS 1/2 tab po qd prn for anxiety TRAZODONE HCL 35993296650 No Longer Active Vishal Hui MD Active OMEPRAZOLE 20 MG TBEC 1 po q a.m. 30min prior to first food intake OMEPRAZOLE 46992577462 Active TAMARA Casey Active RANITIDINE HCL 150 MG CAPS 1 twice a day RANITIDINE HCL 35930665595 Active Pacooral Messilebron NORIEGA Active LINZESS 290 MCG CAPS Take one by mouth daily LINACLOTIDE 52550468527 No Longer Active Vishal Hui MD Active SAPHRIS 5 MG SUBL 1 tab po qd ASENAPINE MALEATE 10136304759 No Longer Active Vishal Hui MD Active ZALEPLON 10 MG CAPS 1 cap po every other night ZALEPLON 58442860325 No Longer Active Vishal Hui MD Active LYRICA 50 MG CAPS 1 tab po TID PREGABALIN 95077451780 No Longer Active Vishal Hui MD Active LORATADINE 10 MG TABS 1 tab po qd LORATADINE 37631360782 No Longer Active Vishal Hui MD Active VERAPAMIL HCL ER 180 MG CR-TABS 1 tab po bid VERAPAMIL HCL 33012292515 No Longer Active Vishal Hui MD Active MIRALAX POWD 1 capfull once daily POLYETHYLENE GLYCOL 3350 73527906529 No Longer Active Vishal Hui MD Active PREDNISONE 20 MG TABS 1 tab po qd PREDNISONE 19231410456 No Longer Active Renzo Thornton DO Active LEVOFLOXACIN 500 MG TABS 1 tab po qd LEVOFLOXACIN 45947065621 No Longer Active Renzo Thornton DO Active BUSPIRONE HCL 15 MG TABS 1 tab po TID BUSPIRONE HCL 51457570305 No Longer Active Renzo Thornton DO Active BENZTROPINE MESYLATE 1 MG TABS 1 tab po qd BENZTROPINE MESYLATE 08946892267 No Longer Active Renzo Thornton DO Active ATENOLOL 25 MG TABS 1 tab po qd ATENOLOL 65291095523 No Longer Active Renzo Thornton DO Active ESCITALOPRAM OXALATE 20 MG TABS 1 tab po qd ESCITALOPRAM OXALATE 62096636629 No Longer Active Renzo Thornton DO Active ADVAIR DISKUS 250-50 MCG/DOSE AEPB 1 puff BID FLUTICASONE-SALMETEROL 71666148910 No Longer Active Renzo Thornton DO Active PREDNISONE 20 MG TAB 2 tabs daily for 3 days, 1 tab daily for 3 days, 1/2 tab daily for 2 days PREDNISONE 55465035509 No Longer Active Vishal Hui MD Active CEFDINIR 300 MG CAPS by mouth twice a day CEFDINIR 03422772543 No Longer Active Vishal Hui MD Active LANSOPRAZOLE 30 MG CPDR 1 cap po qd LANSOPRAZOLE 37851956569 No Longer Active Vishal Hui MD Active BACLOFEN 20 MG TABS 1 tab po tid BACLOFEN 28705215820 No Longer Active Vishal Hui MD Active ADVAIR DISKUS 250-50 MCG/DOSE AEPB 1 puff BID ADVAIR DISKUS 250-50 MCG/DOSE AEPB FLUTICASONE-SALMETEROL Inactive ESCITALOPRAM OXALATE 20 MG TABS 1 tab po qd ESCITALOPRAM OXALATE 20 MG TABS 067599 ESCITALOPRAM OXALATE Inactive ATENOLOL 25 MG TABS 1 tab po qd ATENOLOL 25 MG TABS 461966 ATENOLOL Inactive BENZTROPINE MESYLATE 1 MG TABS 1 tab po qd BENZTROPINE MESYLATE 1 MG TABS 223418 BENZTROPINE MESYLATE Inactive BUSPIRONE HCL 15 MG TABS 1 tab po TID BUSPIRONE HCL 15 MG TABS 969910 BUSPIRONE HCL Inactive LEVOFLOXACIN 500 MG TABS 1 tab po qd LEVOFLOXACIN 500 MG TABS 251828 LEVOFLOXACIN Inactive PREDNISONE 20 MG TABS 1 tab po qd PREDNISONE 20 MG TABS 995372 PREDNISONE Inactive MIRALAX POWD 1 capfull once daily MIRALAX POWD 220746 POLYETHYLENE GLYCOL 3350 Inactive VERAPAMIL HCL ER 180 MG CR-TABS 1 tab po bid VERAPAMIL HCL ER 180 MG CR-TABS VERAPAMIL HCL Inactive LORATADINE 10 MG TABS 1 tab po qd LORATADINE 10 MG TABS 842164 LORATADINE Inactive LYRICA 50 MG CAPS 1 tab po TID LYRICA 50 MG CAPS PREGABALIN Inactive ZALEPLON 10 MG CAPS 1 cap po every other night ZALEPLON 10 MG CAPS 541934 ZALEPLON Inactive SAPHRIS 5 MG SUBL 1 tab po qd SAPHRIS 5 MG SUBL ASENAPINE MALEATE Inactive TRAZODONE HCL 50 MG TABS 1/2 tab po qd prn for anxiety TRAZODONE HCL 50 MG TABS 126515 TRAZODONE HCL Inactive LATUDA 20 MG TABS Take one by mouth daily LATUDA 20 MG TABS LURASIDONE HCL Inactive LISINOPRIL 20 MG TABS 1 tab po qd LISINOPRIL 20 MG TABS 994542 LISINOPRIL Inactive SAPHRIS 10 MG SUBL 1 [...] twice daily BACTRIM DS 800-160 MG TAB 355723 TRIMETHOPRIM-SULFAMETHOXAZOLE Inactive MULTIVITAMINS CAPS Take one by mouth daily MULTIVITAMINS CAPS MULTIPLE VITAMIN Inactive MELATONIN 3 MG CAPS 2 po q hs MELATONIN 3 MG CAPS 930796 MELATONIN Inactive KEFLEX 500 MG ORAL CAPS 1 cap QID by mouth KEFLEX 500 MG ORAL CAPS 229250 CEPHALEXIN Inactive CLINDAMYCIN HCL 150 MG CAPS 1 four times a day CLINDAMYCIN HCL 150 MG CAPS 246704 CLINDAMYCIN HCL Inactive DIFLUCAN 150 MG TAB 1 tablet by mouth daily DIFLUCAN 150 MG TAB 067929 FLUCONAZOLE Inactive PROZAC 20 MG CAP Take one by mouth daily PROZAC 20 MG CAP 482470 FLUOXETINE HCL Inactive IBUPROFEN 600 MG TAB 1 po TID PRN IBUPROFEN 600 MG TAB 459391 IBUPROFEN Inactive VYVANSE 40 MG CAPS 1 daily, VYVANSE 40 MG CAPS LISDEXAMFETAMINE DIMESYLATE Inactive TRAZODONE HCL 100 MG TAB take 1 at bedtime TRAZODONE HCL 100 MG TAB 512620 TRAZODONE HCL Inactive AMITRIPTYLINE HCL 100 MG TAB one at hs AMITRIPTYLINE HCL 100 MG TAB 146119 AMITRIPTYLINE HCL Inactive AMLODIPINE BESYLATE 5 MG TABS 1 tablet by mouth daily AMLODIPINE BESYLATE 5 MG TABS 984342 AMLODIPINE BESYLATE Inactive LATUDA 80 MG TABS Take one by mouth daily LATUDA 80 MG TABS LURASIDONE HCL Inactive SAPHRIS 5 MG SUBL 1 po bid SAPHRIS 5 MG SUBL ASENAPINE MALEATE Inactive PREDNISONE 20 MG TAB 2 tabs daily for 4 days, 1 tab daily for 4 days, 1/2 tab daily for 4 days PREDNISONE 20 MG TAB 577061 PREDNISONE Inactive AMBIEN 5 MG ORAL TABS 1 tab at bedtime AMBIEN 5 MG ORAL TABS 060888 ZOLPIDEM TARTRATE Inactive PROZAC 20 MG ORAL CAPS 1 tab daily PROZAC 20 MG ORAL CAPS 174738 FLUOXETINE HCL Inactive ABILIFY 15 MG ORAL TABS 1 tab daily ABILIFY 15 MG ORAL TABS 091746 ARIPIPRAZOLE Inactive METOPROLOL TARTRATE 50 MG TAB 1 po bid METOPROLOL TARTRATE 50 MG TAB 842157 METOPROLOL TARTRATE Inactive TRAMADOL HCL 50 MG TABS 1-2 po TID PRN Pain TRAMADOL HCL 50 MG TABS 853192 TRAMADOL HCL Inactive PIROXICAM 20 MG CAPS 1 cap po qd PRN Pain PIROXICAM 20 MG CAPS 537459 PIROXICAM Inactive MINIPRESS 2 MG CAPS 4 cap po at night MINIPRESS 2 MG CAPS 234112 PRAZOSIN HCL Inactive MIRALAX PACK 1 po qd PRN Constipation MIRALAX PACK 229248 POLYETHYLENE GLYCOL 3350 Inactive METOPROLOL TARTRATE 25 MG ORAL TABS 1/2 tablet twice daily for heart rate and blood pressure METOPROLOL TARTRATE 25 MG ORAL TABS 232384 METOPROLOL TARTRATE Inactive VALIUM 5 MG TAB Take 1-2 tablets daily VALIUM 5 MG TAB 900341 DIAZEPAM Inactive FLAGYL 500 MG TAB 1 tablet by mouth bid FLAGYL 500 MG TAB 921559 METRONIDAZOLE Inactive DICLOFENAC POTASSIUM TABS Take 1 tablet twice a day (pt. is not sure of the dose.) DICLOFENAC POTASSIUM TABS DICLOFENAC POTASSIUM TABS Inactive ZITHROMAX Z-EARNEST 250 MG TABS 2 today and then 1 daily for 4 days ZITHROMAX Z-EARNEST 250 MG TABS 3926051 AZITHROMYCIN Inactive PREDNISONE 20 MG TABS 2 daily for 5 days then 1 daily for 5 days PREDNISONE 20 MG TABS 218131 PREDNISONE Inactive PROAIR HFA 108 (90 BASE) MCG/ACT AERS 2 puffs four times a day as needed 2015 PROAIR HFA 108 (90 BASE) MCG/ACT AERS ALBUTEROL SULFATE Inactive HYDROCODONE-ACETAMINOPHEN 5-325 MG TABS 1 to 2 four times a day as needed for pain use until can be seen by specialist HYDROCODONE- ACETAMINOPHEN 5-325 MG TABS 360061 HYDROCODONE-ACETAMINOPHEN Inactive TESSALON PERLES 100 MG CAP 1 to 2 tablets by mouth 3 times daily as needed for cough TESSALON PERLES 100 MG CAP 261519 BENZONATATE Inactive CHANTIX STARTING MONTH EARNEST 0.5 [...] Pain 2015 DICLOFENAC SODIUM 50 MG TBEC 584891 DICLOFENAC SODIUM Inactive TOPAMAX 50 MG ORAL TABS 1 tab twice daily TOPAMAX 50 MG ORAL TABS 380419 TOPIRAMATE Inactive VIIBRYD 10 MG ORAL TABS Take 1 tablet once a day VIIBRYD 10 MG ORAL TABS VILAZODONE HCL Inactive LEVOFLOXACIN 500 MG ORAL TABS po daily LEVOFLOXACIN 500 MG ORAL TABS 184767 LEVOFLOXACIN Inactive METHYLPREDNISOLONE 4 MG ORAL TABS po daily METHYLPREDNISOLONE 4 MG ORAL TABS 760359 METHYLPREDNISOLONE Inactive OXYCODONE HCL ER 10 MG ORAL T12A 1/2 tab by mouth every 4 hours prn OXYCODONE HCL ER 10 MG ORAL T12A OXYCODONE HCL Inactive FLAGYL 500 MG TAB 1 tablet by mouth bid FLAGYL 500 MG TAB 865503 METRONIDAZOLE Inactive MONISTAT 7 COMBO PACK WOODROW 100 & 2 MG-% (9GM) VAG KIT 1 applicatorful per vagina q pm x 7 MONISTAT 7 COMBO PACK WOODROW 100 & 2 MG-% (9GM) VAG KIT MICONAZOLE NITRATE Inactive BACTRIM DS 800-160 MG TABS 1 twice a day BACTRIM DS 800-160 MG TABS 423075 SULFAMETHOXAZOLE-TRIMETHOPRIM Inactive TRAMADOL HCL 50 MG TABS 1/2-1 tab TID PRN TRAMADOL HCL 50 MG TABS 112270 TRAMADOL HCL Inactive ABILIFY MAINTENA 400 MG IM SUSR 400mg injection every 26 days ABILIFY MAINTENA 400 MG IM SUSR ARIPIPRAZOLE Inactive KLONOPIN 1 MG ORAL TABS 1 tab po TID KLONOPIN 1 MG ORAL TABS 425048 CLONAZEPAM Inactive ADVAIR DISKUS 250-50 MCG/DOSE INH AEPB 1 puff twice a day for asthma ADVAIR DISKUS 250-50 MCG/DOSE INH AEPB FLUTICASONE- SALMETEROL Inactive BENADRYL 25 MG CAP 4 po at bedtime for insomnia BENADRYL 25 MG CAP DIPHENHYDRAMINE HCL Inactive PREDNISONE 20 MG TABS 2 daily for 5 days then 1 daily for 5 days PREDNISONE 20 MG TABS 401390 PREDNISONE Inactive HYDROCODONE-ACETAMINOPHEN 5-325 MG ORAL TABS 1 tab two times a day HYDROCODONE-ACETAMINOPHEN 5-325 MG ORAL TABS 149336 HYDROCODONE-ACETAMINOPHEN Inactive ZITHROMAX Z-EARNEST 250 MG TABS 2 today and then 1 daily for 4 days ZITHROMAX Z-EARNEST 250 MG TABS 9864825 AZITHROMYCIN Inactive GUAIFENESIN-CODEINE 100-10 MG/5ML SYRP 5ml every 4 to 6 hours as needed for cough GUAIFENESIN-CODEINE 100-10 MG/5ML SYRP 220131 GUAIFENESIN-CODEINE Inactive HALOPERIDOL 10 MG ORAL TABS 1 tab q.d HALOPERIDOL 10 MG ORAL TABS 737048 HALOPERIDOL Inactive ASPIRIN 325 MG ORAL TABS 1 tab q.d ASPIRIN 325 MG ORAL TABS 387510 ASPIRIN Inactive FLUTICASONE PROPIONATE 50 MCG/ACT SUSP 2 sprays each nostril daily before bed. FLUTICASONE PROPIONATE 50 MCG/ACT SUSP 0378726 FLUTICASONE PROPIONATE Inactive ZOFRAN 4 MG TABS 1 po q6hr PRN Nausea ZOFRAN 4 MG TABS 044015 ONDANSETRON HCL Inactive KEFLEX 500 MG CAP 1 po qid KEFLEX 500 MG CAP 020984 CEPHALEXIN Inactive ACETAMINOPHEN-CODEINE 120-12 MG/5ML SOLN 5 ml by mouth every 4-6 hours if needed for cough ACETAMINOPHEN-CODEINE 120-12 MG/5ML SOLN 678314 ACETAMINOPHEN-CODEINE Inactive PREDNISONE 20 MG TAB 1 tablet daily x 4 days PREDNISONE 20 MG TAB 791145 PREDNISONE Inactive TROPICAMIDE 0.5 % OPHTH SOLN 1 drop PRN eye spasms TROPICAMIDE 0.5 % OPHTH SOLN 777013 TROPICAMIDE Inactive LEVAQUIN 500 MG TABS 1 daily for infection LEVAQUIN 500 MG TABS 080896 LEVOFLOXACIN Inactive PREDNISONE 10 MG TABS 2 daily for 5 days then 1 daily for 5 days PREDNISONE 10 MG TABS 170964 PREDNISONE Inactive EQ NICOTINE 21 MG/24HR TRANS PT24 Apply daily to stop smoking EQ NICOTINE 21 MG/24HR TRANS PT24 NICOTINE Inactive CEFDINIR 300 MG CAPS by mouth twice a day CEFDINIR 300 MG CAPS 704382 CEFDINIR Inactive PREDNISONE 20 MG TAB 2 tabs daily for 3 days, 1 tab daily for 3 days, 1/2 tab daily for 2 days PREDNISONE 20 MG TAB 817821 PREDNISONE Inactive BACTRIM DS 800-160 MG TABS 1 po BID x 7 days BACTRIM DS 800-160 MG TABS [id number] SULFAMETHOXAZOLE-TRIMETHOPRIM Inactive DIFLUCAN 150 MG TABS 1 pill every other day x 2 doses DIFLUCAN 150 MG TABS 399617 FLUCONAZOLE Inactive BACTRIM DS 800-160 MG TABS 1 pill by mouth twice daily BACTRIM DS 800-160 MG TABS [id number] SULFAMETHOXAZOLE-TRIMETHOPRIM Inactive KEFLEX 500 MG CAP 1 po TID x 10 days KEFLEX 500 MG CAP [id number] CEPHALEXIN Inactive Advance Directives Directive Description Start Date DISCUSSED WITH PATIENT -- NO DECISION MADE Vital Signs Date Name Value Unit Range Description blood pressure, diastolic - 8462-4 80 mm[Hg] [...] % 11.0-15.0 platelet count 443 THOUSAND/UL 10*3/mm3 149-560 6055/03/01 mean platelet volume 8.2 fL 7.5-12.5 Lab [...] 369 10^3/MM^3 10*3/mm3 142-424 Lab Report: Chlamydia/GC APTIMA/[id number] - Lab chlamydia DNA probe NOT DETECTED NOT DETECTED Lab Report: Chlamydia/GC APTIMA/07118 - Microbiology Neisseria gonorrhoeae DNA probe NOT DETECTED NOT DETECTED Lab Report: Chlamydia/GC APTIMA/05749, Urinalysis, Complete, with Reflex ... - Lab chlamydia DNA probe NOT DETECTED NOT DETECTED Lab Report: Chlamydia/GC APTIMA/77571, Urinalysis, Complete, with Reflex ... - Microbiology Neisseria gonorrhoeae DNA probe NOT DETECTED NOT DETECTED Lab Report: Chlamydia/GC APTIMA/75002, Urinalysis, Complete, with Reflex ... - Urinalysis microalbumin/total urine volume 2 mg/L Units converted. See lab report for original value. microalbumin/creatinine ratio, urine 9 MCG/MG CREAT mg/L <30 Lab Report: Comp. Metabolic Panel - Chemistry sodium, serum 142 mmol/L [id number] 7710/06/08 carbon dioxide, venous blood 27.6 mmol/L 21.0-32.0 potassium, serum 4.0 mmol/L 3.5-5.2 chloride, serum 105 mmol/L 98-107 blood glucose 95 mg/dL 65-110 urea nitrogen, blood 8 mg/dL 7-18 creatinine, serum 0.75 mg/dL 0.55-1.30 alanine aminotransferase (SGPT), serum 49 U/L 12-78 aspartate aminotransferase (SGOT), serum 28 U/L 15-37 calcium, serum 9.4 mg/dL 8.5-10.1 bilirubin, serum, total 0.30 mg/dL 0.00-1.00 sodium, serum 140 mmol/L 476-924 9294/08/08 carbon dioxide, venous blood 33.7 mmol/L 21.0-32.0 [...] mg/dL Encounters Code Encounter Date Provider Facility CPT-69914 Level 3 Est. Patient 10:29:30 CDT Suzan Boo [facility] CPT-52101 Level 3 Est. Patient 11:04:38 CDT [facility] CPT-[facility]205 Level 3 Est. Patient 11:15:58 ASSEMBLY MECHANIC [facility] CPT-37570 Level 3 Est. Patient 15:28:23 ASSEMBLY MECHANIC Suzan Boo [facility] CPT-40091 Level 4 Est. Patient 10:20:54 [employer]SEMBLY MECHANIC Suzan Boo [facility] CPT-68625 Level 3 Est. Patient 11:47:37 ASSEMBLY MECHANIC Ahmet Carbajal MD [facility] CPT-59065 Level 3 Est. Patient 10:40:11 ASSEMBLY MECHANIC Ahmet Carbajal MD [facility] CPT-98158 Level 3 Est. Patient 15:07:06 ASSEMBLY MECHANIC Neeraj Collins MD [facility] CPT-74539 Level 4 Est. Patient 14:45:00 ASSEMBLY MECHANIC Ahmet Carbajal MD [facility] CPT-59053 Level 3 Est. Patient 13:59:59 CDT 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 [facility] CPT-16987 Level 3 Est. Patient 18:18:53 CDT Neeraj Collins MD [facility] CPT-63259 Level 3 Est. Patient 15:50:44 CDT Vishal Hui MD [facility] CPT-23882 Level 3 Est. Patient 11:36:17 CDT Ahmet Carbajal MD [facility] CPT-51547 Level 3 Est. Patient 13:29:16 CDT Vishal Hui MD [facility] CPT-72956 Level 3 Est. Patient 14:27:52 CDT Neeraj Collins MD [facility] CPT-34888 Level 3 Est. Patient 08:56:03 CDT 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 [facility] CPT-75100 Level 4 Est. Patient 12:11:48 CDT Fabiola Johnson [facility] CPT-01073 Level 3 New Patient 16:53:37 CDT Albert Caldera MD [facility] CPT-63460 Level 3 Est. Patient 11:25:49 CDT Renzo Thornton DO [facility] CPT-00012 Level 3 Est. Patient 15:22:01 CDT Ahmet Carbajal MD [facility] CPT-53433 Level 4 Est. Patient 09:00:51 ASSEMBLY MECHANIC Vishal Hui MD [facility] CPT-97415 Level 3 Est. Patient 11:37:33 ASSEMBLY MECHANIC Vishal Hui MD [facility] CPT-48112 Level 3 Est. Patient 08:41:09 ASSEMBLY MECHANIC Vishal Hui MD [facility] CPT-39210 Level 4 Est. Patient 10:19:35 ASSEMBLY MECHANIC Vishal Hui MD [facility] CPT-15120 Level 3 Est. Patient 13:35:45 CDT Vishal Hui MD [facility] CPT-85597 Level 4 Est. Patient 10:08:37 CDT Vishal Hui MD [facility] CPT-24996 Level 3 Est. Patient 11:22:10 CDT Vishal Hui MD [facility] CPT-36037 Level 3 Est. Patient 11:03:32 CDT Sahara Rodriguez MD, PhD [facility] CPT-73592 Level 3 Est. Patient 09:41:35 CDT Vishal Hui MD [facility] CPT-76780 Level 3 Est. Patient 12:00:41 CDT Neeraj Collins MD [facility] CPT-94959 Level 3 Est. Patient 09:16:24 CDT Vishal Hui MD [facility] CPT-64302 Level 4 Est. Patient 13:59:09 CDT Neeraj Collins MD [facility]-62196 Level 3 Est. Patient 15:19:43 CDT Renzo Thornton DO [facility] CPT-16787 Level 3 Est. Patient 18:10:26 CDT Sahara Rodriguez MD [facility]-95970 Level 3 Est. Patient 14:49:50 CDT Vishal Hui MD [facility]-08355 Level 4 Est. Patient 18:41:46 CDT Neeraj Collins MD [facility]-54820 Level 4 Est. Patient 09:18:38 ASSEMBLY MECHANIC Vishal Hui MD [facility] CPT-86033 Level 3 Est. Patient 14:43:55 ASSEMBLY MECHANIC Vishal Hui MD [facility] CPT-98963 Level 3 Est. Patient 15:26:33 ASSEMBLY MECHANIC Sahara Rodriguez MD PhD [facility]-87467 Level 3 Est. Patient 10:32:14 ASSEMBLY MECHANIC Vishal Hui MD [facility] CPT-25600 Level 3 Est. Patient 15:12:52 ASSEMBLY MECHANIC Vishal Hui MD [facility] CPT-69684 Level 4 Est. Patient 09:19:27 CDT Vishal Hui MD [facility]-78259 Level 3 Est. Patient 15:53:00 CDT Renzo Thornton [facility]-71453 Level 3 Est. Patient 15:50:30 CDT Renzo Thornton DO [facility] CPT-36373 Level 3 Est. Patient 16:55:24 CDT Vishal Hui MD [facility] Procedures Code Procedure Name Date Entry Date Standard Description CPT-85198 Smoking Cessation counseling 11:15:58 ASSEMBLY MECHANIC CPT-G0439 Subsequent Annual Wellness Exam 09:30:58 ASSEMBLY MECHANIC CPT-26046 TSH - LAB USE ONLY 08:50:26 ASSEMBLY MECHANIC CPT-29152 CBC - LAB USE ONLY 08:50:26 ASSEMBLY MECHANIC CPT-63757 Venipuncture Draw Fee 08:50:26 ASSEMBLY MECHANIC CPT-03115 Abx/Therapy Injection 17:34:30 ASSEMBLY MECHANIC CPT-14615 Nexplanon Removal with Reinsertion 14:09:32 CDT CPT-J7307 Nexplanon (Implant) 14:09:32 CDT CPT-OV Office Visit 14:09:32 CDT CPT-76774 UA w micro - LAB USE ONLY 16:21:13 CDT CPT-97854 Wet Mount - LAB USE ONLY 16:21:13 CDT CPT-36813 First Vx - Ix admin for Medicare patients 14:37:47 CDT CPT-29297 Fluzone Preservative Free Intramuscular Suspension 14:37 :47 CDT CPT-81999 Abx/Therapy Injection 13:54:22 CDT CPT-93622 Abx/Therapy Injection 08:47:09 CDT CPT-98356 Abx/Therapy Injection 13:29:56 CDT CPT-90166 Abx/Therapy Injection 08:36:16 CDT CPT-68807 Wet Mount - LAB USE ONLY 17:44:58 CDT CPT-73058 UA w micro - LAB USE ONLY 17:44:58 CDT CPT-80982 CMP - LAB USE ONLY 17:44:58 CDT CPT-36222 Venipuncture Draw Fee 17:44:58 CDT CPT-99906 Cervical Min 4V - XRAY USE ONLY 09:01:40 CDT CPT-59248 Chest 2V Frontal and Lat - XRAY USE ONLY 11:06:31 CDT CPT-84830 EKG Trac and Interp - XRAY USE ONLY 11:31:43 CDT 08/26 CPT-J3420 Vitamin B12 1000mcg (Cyanocobalamin) 08:10:26 ASSEMBLY MECHANIC 04/12 CPT-37294 Abx/Therapy Injection 08:10:26 ASSEMBLY MECHANIC CPT-G0438 Initial Annual Wellness Exam 19:01:01 ASSEMBLY MECHANIC CPT-J3420 Vitamin B12 1000mcg (Cyanocobalamin) 16:57:46 CDT 08/14 CPT-75821 Recombivax HB Injection Suspension 5 MCG/0.5ML 08:37:50 ASSEMBLY MECHANIC CPT-66895 Immunization Single Admin 08:37:50 ASSEMBLY MECHANIC CPT-J3420 Vitamin B12 1000mcg (Cyanocobalamin) 08:32:16 ASSEMBLY MECHANIC 03/11 CPT-17573 Abx/Therapy Injection 08:32:16 ASSEMBLY MECHANIC CPT-67745 Chest 2V Frontal and Lat 11:46:38 ASSEMBLY MECHANIC CPT-51274 Venipuncture Draw Fee 09:12:45 ASSEMBLY MECHANIC CPT-J3420 Vitamin B12 1000mcg (Cyanocobalamin) 08:50:15 ASSEMBLY MECHANIC 02/08 CPT-76090 Abx/Therapy Injection 08:50:15 ASSEMBLY MECHANIC CPT-Cryo Cryotherapy 10:19:35 ASSEMBLY MECHANIC CPT-000 Give Appropriate Flu Vaccine 09:22:16 CDT CPT-J3420 Vitamin B12 1000mcg (Cyanocobalamin) 19:08:57 CDT 01/11 CPT-45484 Abx/Therapy Injection 19:08:57 CDT CPT-J3420 Vitamin B12 1000mcg (Cyanocobalamin) 08:19:08 CDT 12/11 CPT-83033 Abx/Therapy Injection 08:19:08 CDT CPT-J3420 Vitamin B12 1000mcg (Cyanocobalamin) 14:48:00 CDT 11/09 CPT-80150 Abx/Therapy Injection 14:47:59 CDT CPT-J3420 Vitamin B12 1000mcg (Cyanocobalamin) 08:34:04 CDT 10/09 CPT-97198 Abx/Therapy Injection 08:34:04 CDT CPT-J3420 Vitamin B12 1000mcg (Cyanocobalamin) 09:18:52 CDT 09/11 CPT-80625 Abx/Therapy Injection 09:18:52 CDT CPT-J3420 Vitamin B12 1000mcg (Cyanocobalamin) 08:35:44 CDT 09/04 CPT-30013 Abx/Therapy Injection 08:35:44 CDT CPT-35691 Immunization Single Admin 11:07:16 CDT CPT-25409 Hepatitis B adult IM 11:07:16 CDT CPT-J3420 Vitamin B12 1000mcg (Cyanocobalamin) 11:00:49 CDT 08/28 CPT-J1040 Depo Medrol 80 mg (Methyl Prednisolone Acetate) 11:00: 49 CDT CPT-85538 Abx/Therapy Injection 11:00:49 CDT CPT-J1040 Depo Medrol 80 mg (Methyl Prednisolone Acetate) 09:16: 23 CDT CPT-J3420 Vitamin B12 1000mcg (Cyanocobalamin) 08:27:05 CDT 08/20 CPT-85352 Abx/Therapy Injection 08:27:05 CDT CPT-40671 Recombivax HB Injection Suspension 5 MCG/0.5ML 10:00:41 CDT CPT-80572 Administration single or combination vaccine inc oral 10 :00:41 CDT CPT-06793 Sono transvag pelvis non OB uterus ovaries cervix 16:36: 57 CDT CPT-64755 LS spine comp w obliq 09:50:55 ASSEMBLY MECHANIC CPT-84710 Abd compl w upright 09:50:55 ASSEMBLY MECHANIC CPT-J1100 Decadron 4mg (Dexamethasone) 15:51:24 ASSEMBLY MECHANIC CPT-J1030 Depo Medrol 40 mg (Methyl Prednisolone Acetate) 15:51: 24 ASSEMBLY MECHANIC CPT-40409 Abx/Therapy Injection 15:51:24 ASSEMBLY MECHANIC CPT-J1100 Decadron 4mg (Dexamethasone) 15:26:33 ASSEMBLY MECHANIC CPT-J1030 Depo Medrol 40 mg (Methyl Prednisolone Acetate) 15:26: 33 ASSEMBLY MECHANIC CPT-00929 Sono retroperitoneal complete kidneys and bladder 17:15: 30 CDT CPT-88728 Abd compl w upright 16:09:25 CDT CPT-J1100 Decadron 8mg (Dexamethasone) 17:07:57 CDT CPT-96129 Abx/Therapy Injection 17:07:57 CDT CPT-J1100 Decadron 8mg (Dexamethasone) 16:55:24 CDT CPT-33241 Chest 2V Frontal and Lat 16:32:44 CDT
--- OUTSIDE RECORDS SUMMARY | 2016-11-04 12:25 | XMS REPORT | Clinical Summary ---
Author Author Admin, FLOR Organization [facility] Address Unknown Phone Unavailable Allergies, Adverse Reactions, [...] Low back pain, chronic 724.2 Inactive Vishal uHi MD Lumbago Back pain, lumbar, with radiculopathy [...] sites Morbid obesity 278.01 Active Juliet Kimbrough SURVEY TECHNOLOGIST Morbid obesity 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 Active Juliet [...] breath Nocturnal hypoxia 799.02 Active Fabiola Johnson SURVEY TECHNOLOGIST Hypoxemia Neck pain 723.1 Resolved Vishal Hui [...] Generic Name NDC Status Provider Patient Instruction TESSALON PERLES 100 MG CAP 1 to 2 tablets by mouth 3 times daily as needed for cough BENZONATATE 28473987448 No Longer Active 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 APRN Active KENN MAINTENA 400 MG IM SUSR 400mg injection every 26 days ARIPIPRAZOLE 80835814287 Active Silvia Cedeno Carmela INVOICING SPECIALIST Active IMITREX 50 MG ORAL TABS 0.5 po x 1 PRN Headache. May repeat dose x 1 in 2 hours if needed SUMATRIPTAN SUCCINATE 07723595209 Active Vishal Hui MD Active OXYCODONE HCL ER 10 MG ORAL T12A 1/2 tab by mouth every 4 hours prn OXYCODONE HCL 14327286714 Active Neeraj Collins MD Active METHYLPREDNISOLONE 4 MG ORAL TABS po daily METHYLPREDNISOLONE 22748520498 Active Vishal Hui MD Active LEVOFLOXACIN 500 MG ORAL TABS po daily LEVOFLOXACIN 99189111368 Active Vishal Hui MD Active CHANTIX STARTING MONTH EARNEST 0.5 MG X 11 & 1 MG X 42 TABS take as directed 2015 VARENICLINE TARTRATE 65697199459 Active Ahmet Carbajal MD Active CHANTIX 1 MG TABS 1 twice a day to help quit smoking VARENICLINE TARTRATE 00675049773 Active Ahmet Carbajal MD Active HYDROCODONE-ACETAMINOPHEN 5-325 MG TABS 1 to 2 four times a day as needed for pain use until can be seen by specialist HYDROCODONE- ACETAMINOPHEN 54632411964 No Longer Active Vishal Hui MD Active PROAIR HFA 108 (90 BASE) MCG/ACT AERS 2 puffs four times a day as needed 2015 ALBUTEROL SULFATE 91629039541 No Longer Active Vishal Hui MD Active PREDNISONE 20 MG TABS 2 daily for 5 days then 1 daily for 5 days PREDNISONE 04016854274 No Longer Active Vishal Hui MD Active ZITHROMAX Z-EARNEST 250 MG TABS 2 today and then 1 daily for 4 days AZITHROMYCIN 15157803119 No Longer Active Vishal Hui MD Active DICLOFENAC SODIUM 50 MG TBEC 1 tablet by mouth four times daily PRN Pain 2015 DICLOFENAC SODIUM 76630830182 Active Vishal Hui MD Active DICLOFENAC POTASSIUM TABS Take 1 tablet twice a day (pt. is not sure of the dose.) DICLOFENAC POTASSIUM TABS 46619014323 No Longer Active Vishal Hui MD Active VERAPAMIL HCL ER 120 MG ORAL CR-TABS Take 1 tablet by mouth twice a day. VERAPAMIL HCL 11635426577 Active Vishal Hui MD Active FLAGYL 500 MG TAB 1 tablet by mouth bid METRONIDAZOLE 96021657109 No Longer Active Vishal Hui MD Active FLUTICASONE PROPIONATE 50 MCG/ACT SUSP 2 sprays each nostril daily before bed. FLUTICASONE PROPIONATE 26731523261 Active Fabiola Johnson APRN Active ADZENYS XR-ODT 6.3 MG ORAL TBED 1 tab po daily for ADHD AMPHETAMINE 34535834886 Active Fabiola Johnson APRN Active BENADRYL 25 MG CAP 4 po at bedtime for insomnia DIPHENHYDRAMINE HCL 31367051346 Active Fabiola Johnson APRN Active KLONOPIN 1 MG ORAL TABS 1 tab po TID CLONAZEPAM 42955181897 Active Fabiola Johnson APRN Active VALIUM 5 MG TAB Take 1-2 tablets daily DIAZEPAM 77227646389 No Longer Active Fabiola Johnson APRN Active METOPROLOL TARTRATE 25 MG ORAL TABS 1/2 tablet twice daily for heart rate and blood pressure METOPROLOL TARTRATE 97462015892 No Longer Active Fabiola Johnson APRN Active MIRALAX ORAL POWD 17GMS DAILY IN WATER POLYETHYLENE GLYCOL 3350 10331757311 Active Vishal Hui MD Active VIIBRYD 10 MG ORAL TABS Take 1 tablet once a day VILAZODONE HCL 54492461986 Active Ahmet Carbajal MD Active MIRALAX PACK 1 po qd PRN Constipation POLYETHYLENE GLYCOL 3350 02053457026 No Longer Active Ahmet Carbajal MD Active MINIPRESS 2 MG CAPS 4 cap po at night PRAZOSIN HCL 51751907340 No Longer Active Ahmet Carbajal MD Active PIROXICAM 20 MG CAPS 1 cap po qd PRN Pain PIROXICAM 80313341078 No Longer Active Ahmet Carbajal MD Active TRAMADOL HCL 50 MG TABS 1-2 po TID PRN Pain TRAMADOL HCL 41034519417 No Longer Active Ahmet Carbajal MD Active METOPROLOL TARTRATE 50 MG TAB 1 po bid METOPROLOL TARTRATE 04929585474 No Longer Active Ahmet Carbajal MD Active ABILIFY 15 MG ORAL TABS 1 tab daily ARIPIPRAZOLE 90642107227 No Longer Active Ahmet Carbajal MD Active PROZAC 20 MG ORAL CAPS 1 tab daily FLUOXETINE HCL 89727731736 No Longer Active Ahmet Carbajal MD Active AMBIEN 5 MG ORAL TABS 1 tab at bedtime ZOLPIDEM TARTRATE 43352237905 No Longer Active Ahmet Carbajal MD Active PREDNISONE 20 MG TAB 2 tabs daily for 4 days, 1 tab daily for 4 days, 1/2 tab daily for 4 days PREDNISONE 56448514269 No Longer Active Ahmet aCrbajal MD Active KEFLEX 500 MG CAP 1 po TID x 10 days CEPHALEXIN 59588323829 No Longer Active Vishal Hui MD Active TOPAMAX 50 MG ORAL TABS 1 tab twice daily TOPIRAMATE 68578434777 Active Vishal Hui MD Active SAPHRIS 5 MG SUBL 1 po bid ASENAPINE MALEATE 58040076138 No Longer Active 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 APRN Active LATUDA 80 MG TABS Take one by mouth daily LURASIDONE HCL 94476988884 No Longer Active Pacollina Fralebron SURVEY TECHNOLOGIST Active AMLODIPINE BESYLATE 5 MG TABS 1 tablet by mouth daily AMLODIPINE BESYLATE 54484352600 No Longer Active 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 APRN Active AMITRIPTYLINE HCL 100 MG TAB one at hs AMITRIPTYLINE HCL 44233399291 No Longer Active Vishal Hui MD Active TRAZODONE HCL 100 MG TAB take 1 at bedtime TRAZODONE HCL 03202399991 No Longer Active Vishal Hui MD Active VYVANSE 40 MG CAPS 1 daily, LISDEXAMFETAMINE DIMESYLATE 35011475711 No Longer Active Vishal Hui MD Active IBUPROFEN 600 MG TAB 1 po TID PRN IBUPROFEN 12568897461 No Longer Active Vishal Hui MD Active PROZAC 20 MG CAP Take one by mouth daily FLUOXETINE HCL 66428950389 No Longer Active Vishal Hui MD Active ZOFRAN 4 MG TABS 1 po q6hr PRN Nausea ONDANSETRON HCL Active Vishal Hui MD Active BACTRIM DS 800-160 MG TABS 1 pill by mouth twice daily SULFAMETHOXAZOLE-TRIMETHOPRIM 74449783974 No Longer Active Sahara Rodriguez MD PhD Active DIFLUCAN 150 MG TAB 1 tablet by mouth daily FLUCONAZOLE 87469089507 No Longer Active Vishal Hui MD Active TIZANIDINE HCL 4 MG TABS 1 po q6hr PRN Muscle Spasm/Back Pain TIZANIDINE HCL 32583419050 Active Vishal Hui MD Active CLINDAMYCIN HCL 150 MG CAPS 1 four times a day CLINDAMYCIN HCL 22340147561 No Longer Active Neeraj Collins MD Active KEFLEX 500 MG ORAL CAPS 1 cap QID by mouth CEPHALEXIN 50233113546 No Longer Active Neeraj Collins MD Active DIFLUCAN 150 MG TABS 1 pill every other day x 2 doses FLUCONAZOLE 17205805166 No Longer Active Sahara Rodriguez MD PhD Active MELATONIN 3 MG CAPS 2 po q hs MELATONIN 75993701714 No Longer Active Sahara Rodriguez MD PhD Active MULTIVITAMINS CAPS Take one by mouth daily MULTIPLE VITAMIN 44773626743 No Longer Active Sahara Rodriguez MD PhD Active BACTRIM DS 800-160 MG TAB 1 tab by mouth twice daily TRIMETHOPRIM-SULFAMETHOXAZOLE 00055632075 No Longer Active Sahara Rodriguez MD PhD Active [facility] PROBIOTIC ORAL CHEW 2 daily po PROBIOTIC PRODUCT 69013824922 No Longer Active Sahara Rodriguez MD PhD Active BACTRIM DS 800-160 MG TABS 1 po BID x 7 days SULFAMETHOXAZOLE-TRIMETHOPRIM 69803225328 No Longer Active Vishal Hui MD Active CHANTIX STARTING MONTH EARNEST 0.5 MG X 11 & 1 MG X 42 TABS 0.5mg daily for 3 days , then 0.5mg BID for 4 days, then 1mg BID VARENICLINE TARTRATE 71749573957 No Longer Active TAMARA Gray Active VERAPAMIL HCL CR 120 MG TAB CR 1 po bid VERAPAMIL HCL 47386698143 No Longer Active Vishal Hui MD Active METOPROLOL SUCCINATE 50 MG TB24 1 tablet by mouth daily METOPROLOL SUCCINATE 00623407405 No Longer Active Vishal Hui MD Active SAPHRIS 10 MG SUBL 1 tab po bid ASENAPINE MALEATE 52284000173 No Longer Active Vishal Hui MD Active LISINOPRIL 20 MG TABS 1 tab po qd LISINOPRIL 27405066971 No Longer Active Vishal Hui MD Active LATUDA 20 MG TABS Take one by mouth daily LURASIDONE HCL 09910406857 No Longer Active Vishal Hui MD Active TRAZODONE HCL 50 MG TABS 1/2 tab po qd prn for anxiety TRAZODONE HCL 41733307526 No Longer Active Vishal Hui MD Active OMEPRAZOLE 20 MG TBEC 1 po q a.m. 30min prior to first food intake OMEPRAZOLE 16372909892 Active Vishal Hui MD Active RANITIDINE HCL 150 MG CAPS 1 twice a day RANITIDINE HCL 29705354370 Active 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 APRN Active LINZESS 290 MCG CAPS Take one by mouth daily LINACLOTIDE 12468735018 No Longer Active Vishal Hui MD Active SAPHRIS 5 MG SUBL 1 tab po qd ASENAPINE MALEATE 59905461580 No Longer Active Vishal Hui MD Active ZALEPLON 10 MG CAPS 1 cap po every other night ZALEPLON 09646234013 No Longer Active Vishal Hui MD Active LYRICA 50 MG CAPS 1 tab po TID PREGABALIN 39591730943 No Longer Active Vishal Hui MD Active LORATADINE 10 MG TABS 1 tab po qd LORATADINE 78078423714 No Longer Active Vishal Hui MD Active VERAPAMIL HCL ER 180 MG CR-TABS 1 tab po bid VERAPAMIL HCL 47409894356 No Longer Active Vishal Hui MD Active MIRALAX POWD 1 capfull once daily POLYETHYLENE GLYCOL 3350 09092475432 No Longer Active Vishal Hui MD Active PREDNISONE 20 MG TABS 1 tab po qd PREDNISONE 54819673799 No Longer Active Renzo Thornton DO Active LEVOFLOXACIN 500 MG TABS 1 tab po qd LEVOFLOXACIN 69867048553 No Longer Active Renzo Thornton DO Active BUSPIRONE HCL 15 MG TABS 1 tab po TID BUSPIRONE HCL 94283819489 No Longer Active Renzo Thornton DO Active BENZTROPINE MESYLATE 1 MG TABS 1 tab po qd BENZTROPINE MESYLATE 61620694359 No Longer Active Renzo Thornton DO Active ATENOLOL 25 MG TABS 1 tab po qd ATENOLOL 46972258469 No Longer Active Renzo Thornton DO Active ESCITALOPRAM OXALATE 20 MG TABS 1 tab po qd ESCITALOPRAM OXALATE 71543043013 No Longer Active Renzo Thornton DO Active ADVAIR DISKUS 250-50 MCG/DOSE AEPB 1 puff BID FLUTICASONE-SALMETEROL 08534678493 No Longer Active Renzo Thornton DO Active PREDNISONE 20 MG TAB 2 tabs daily for 3 days, 1 tab daily for 3 days, 1/2 tab daily for 2 days PREDNISONE 96691669781 No Longer Active Vishal Hui MD Active CEFDINIR 300 MG CAPS by mouth twice a day CEFDINIR 22215771508 No Longer Active Vishal Hui MD Active LANSOPRAZOLE 30 MG CPDR 1 cap po qd LANSOPRAZOLE 84374634648 No Longer Active Vishal Hui MD Active BACLOFEN 20 MG TABS 1 tab po tid BACLOFEN 15733240891 No Longer Active Vishal Hui MD Active ADVAIR DISKUS 250-50 MCG/DOSE AEPB 1 puff BID ADVAIR DISKUS 250-50 MCG/DOSE AEPB FLUTICASONE-SALMETEROL Inactive ESCITALOPRAM OXALATE 20 MG TABS 1 tab po qd ESCITALOPRAM OXALATE 20 MG TABS 276334 ESCITALOPRAM OXALATE Inactive ATENOLOL 25 MG TABS 1 tab po qd ATENOLOL 25 MG TABS 554298 ATENOLOL Inactive BENZTROPINE MESYLATE 1 MG TABS 1 tab po qd BENZTROPINE MESYLATE 1 MG TABS 408256 BENZTROPINE MESYLATE Inactive BUSPIRONE HCL 15 MG TABS 1 tab po TID BUSPIRONE HCL 15 MG TABS 134861 BUSPIRONE HCL Inactive LEVOFLOXACIN 500 MG TABS 1 tab po qd LEVOFLOXACIN 500 MG TABS 316110 LEVOFLOXACIN Inactive PREDNISONE 20 MG TABS 1 tab po qd PREDNISONE 20 MG TABS 822117 PREDNISONE Inactive MIRALAX POWD 1 capfull once daily MIRALAX POWD 020429 POLYETHYLENE GLYCOL 3350 Inactive VERAPAMIL HCL ER 180 MG CR-TABS 1 tab po bid VERAPAMIL HCL ER 180 MG CR-TABS VERAPAMIL HCL Inactive LORATADINE 10 MG TABS 1 tab po qd LORATADINE 10 MG TABS 600406 LORATADINE Inactive LYRICA 50 MG CAPS 1 tab po TID LYRICA 50 MG CAPS PREGABALIN Inactive ZALEPLON 10 MG CAPS 1 cap po every other night ZALEPLON 10 MG CAPS 445039 ZALEPLON Inactive SAPHRIS 5 MG SUBL 1 tab po qd SAPHRIS 5 MG SUBL ASENAPINE MALEATE Inactive TRAZODONE HCL 50 MG TABS 1/2 tab po qd prn for anxiety TRAZODONE HCL 50 MG TABS 541719 TRAZODONE HCL Inactive LATUDA 20 MG TABS Take one by mouth daily LATUDA 20 MG TABS LURASIDONE HCL Inactive LISINOPRIL 20 MG TABS 1 tab po qd LISINOPRIL 20 MG TABS 332235 LISINOPRIL Inactive SAPHRIS 10 MG SUBL 1 [...] twice daily BACTRIM DS 800-160 MG TAB 752777 TRIMETHOPRIM-SULFAMETHOXAZOLE Inactive MULTIVITAMINS CAPS Take one by mouth daily MULTIVITAMINS CAPS MULTIPLE VITAMIN Inactive MELATONIN 3 MG CAPS 2 po q hs MELATONIN 3 MG CAPS 172318 MELATONIN Inactive KEFLEX 500 MG ORAL CAPS 1 cap QID by mouth KEFLEX 500 MG ORAL CAPS 717713 CEPHALEXIN Inactive CLINDAMYCIN HCL 150 MG CAPS 1 four times a day CLINDAMYCIN HCL 150 MG CAPS 698819 CLINDAMYCIN HCL Inactive DIFLUCAN 150 MG TAB 1 tablet by mouth daily DIFLUCAN 150 MG TAB 311276 FLUCONAZOLE Inactive PROZAC 20 MG CAP Take one by mouth daily PROZAC 20 MG CAP 467821 FLUOXETINE HCL Inactive IBUPROFEN 600 MG TAB 1 po TID PRN IBUPROFEN 600 MG TAB 066905 IBUPROFEN Inactive VYVANSE 40 MG CAPS 1 daily, VYVANSE 40 MG CAPS LISDEXAMFETAMINE DIMESYLATE Inactive TRAZODONE HCL 100 MG TAB take 1 at bedtime TRAZODONE HCL 100 MG TAB 595505 TRAZODONE HCL Inactive AMITRIPTYLINE HCL 100 MG TAB one at hs AMITRIPTYLINE HCL 100 MG TAB 590116 AMITRIPTYLINE HCL Inactive AMLODIPINE BESYLATE 5 MG TABS 1 tablet by mouth daily AMLODIPINE BESYLATE 5 MG TABS 419087 AMLODIPINE BESYLATE Inactive LATUDA 80 MG TABS Take one by mouth daily LATUDA 80 MG TABS LURASIDONE HCL Inactive SAPHRIS 5 MG SUBL 1 po bid SAPHRIS 5 MG SUBL ASENAPINE MALEATE Inactive PREDNISONE 20 MG TAB 2 tabs daily for 4 days, 1 tab daily for 4 days, 1/2 tab daily for 4 days PREDNISONE 20 MG TAB 183213 PREDNISONE Inactive AMBIEN 5 MG ORAL TABS 1 tab at bedtime AMBIEN 5 MG ORAL TABS 690046 ZOLPIDEM TARTRATE Inactive PROZAC 20 MG ORAL CAPS 1 tab daily PROZAC 20 MG ORAL CAPS 178107 FLUOXETINE HCL Inactive ABILIFY 15 MG ORAL TABS 1 tab daily ABILIFY 15 MG ORAL TABS 346643 ARIPIPRAZOLE Inactive METOPROLOL TARTRATE 50 MG TAB 1 po bid METOPROLOL TARTRATE 50 MG TAB 583510 METOPROLOL TARTRATE Inactive TRAMADOL HCL 50 MG TABS 1-2 po TID PRN Pain TRAMADOL HCL 50 MG TABS 981078 TRAMADOL HCL Inactive PIROXICAM 20 MG CAPS 1 cap po qd PRN Pain PIROXICAM 20 MG CAPS 903287 PIROXICAM Inactive MINIPRESS 2 MG CAPS 4 cap po at night MINIPRESS 2 MG CAPS 688119 PRAZOSIN HCL Inactive MIRALAX PACK 1 po qd PRN Constipation MIRALAX PACK 863278 POLYETHYLENE GLYCOL 3350 Inactive METOPROLOL TARTRATE 25 MG ORAL TABS 1/2 tablet twice daily for heart rate and blood pressure METOPROLOL TARTRATE 25 MG ORAL TABS 932695 METOPROLOL TARTRATE Inactive VALIUM 5 MG TAB Take 1-2 tablets daily VALIUM 5 MG TAB 621251 DIAZEPAM Inactive FLAGYL 500 MG TAB 1 tablet by mouth bid FLAGYL 500 MG TAB 200566 METRONIDAZOLE Inactive DICLOFENAC POTASSIUM TABS Take 1 tablet twice a day (pt. is not sure of the dose.) DICLOFENAC POTASSIUM TABS DICLOFENAC POTASSIUM TABS Inactive ZITHROMAX Z-EARNEST 250 MG TABS 2 today and then 1 daily for 4 days ZITHROMAX Z-EARNEST 250 MG TABS 4354990 AZITHROMYCIN Inactive PREDNISONE 20 MG TABS 2 daily for 5 days then 1 daily for 5 days PREDNISONE 20 MG TABS 899417 PREDNISONE Inactive PROAIR HFA 108 (90 BASE) MCG/ACT AERS 2 puffs four times a day as needed 2015 PROAIR HFA 108 (90 BASE) MCG/ACT AERS ALBUTEROL SULFATE Inactive HYDROCODONE-ACETAMINOPHEN 5-325 MG TABS 1 to 2 four times a day as needed for pain use until can be seen by specialist HYDROCODONE- ACETAMINOPHEN 5-325 MG TABS 235586 HYDROCODONE-ACETAMINOPHEN Inactive TESSALON PERLES 100 MG CAP 1 to 2 tablets by mouth 3 times daily as needed for cough TESSALON PERLES 100 MG CAP 430723 BENZONATATE Inactive CEFDINIR 300 MG CAPS by mouth twice a day CEFDINIR 300 MG CAPS 524353 CEFDINIR Inactive PREDNISONE 20 MG TAB 2 tabs daily for 3 days, 1 tab daily for 3 days, 1/2 tab daily for 2 days PREDNISONE 20 MG TAB 321994 PREDNISONE Inactive BACTRIM DS 800-160 MG TABS 1 po BID x 7 days BACTRIM DS 800-160 MG TABS 19820521 SULFAMETHOXAZOLE-TRIMETHOPRIM Inactive DIFLUCAN 150 MG TABS 1 pill every other day x 2 doses DIFLUCAN 150 MG TABS 002975 FLUCONAZOLE Inactive BACTRIM DS 800-160 MG TABS 1 pill by mouth twice daily BACTRIM DS 800-160 MG TABS 19820521 SULFAMETHOXAZOLE-TRIMETHOPRIM Inactive KEFLEX 500 MG CAP 1 po TID x 10 days KEFLEX 500 MG CAP 342595 CEPHALEXIN Inactive Advance Directives Directive Description Start [...] pressure, diastolic - 8462-4 70 mm[Hg] BP mcnalyl blood pressure, systolic - 8480-6 118 mm[Hg] [...] % 11.6-14.8 platelet count 394 10^3/MM^3 10*3/mm3 702-929 9431/01/11 leukocyte count, blood 13.8 10^3/MM^3 10*3/mm3 4.6-10.2 [...] Panel - Chemistry sodium, serum 139 mmol/L 645-507 8563/12/03 carbon dioxide, venous blood 28.5 mmol/L 21.0-32.0 [...] 5.5 % 4.3-6.0 cholesterol, serum 159 mg/dL 960-263 5973/12/03 triglyceride, serum, fasting 118 mg/dL 30-200 HDL [...] Panel - Chemistry sodium, serum 139 mmol/L 017-210 8936/12/22 carbon dioxide, venous blood 26.8 mmol/L 21.0-32.0 potassium, serum 4.2 mmol/L 3.5-5.2 chloride, serum 103 mmol/L 98-107 blood glucose 115 mg/dL 65-110 urea nitrogen, blood 20 mg/dL 7-18 creatinine, serum 0.90 mg/dL 0.55-1.30 alanine aminotransferase (SGPT), serum 38 U/L 12-78 aspartate aminotransferase (SGOT), serum 19 U/L 15-37 calcium, serum 8.6 mg/dL 8.5-10.1 bilirubin, serum, total 0.30 mg/dL 0.00-1.00 sodium, serum 139 mmol/L 181-692 7318/01/11 carbon dioxide, venous blood 26.6 mmol/L 21.0-32.0 potassium, serum 4.1 mmol/L 3.5-5.2 chloride, serum 100 mmol/L 98-107 blood glucose 86 mg/dL 65-110 urea nitrogen, blood 16 mg/dL 7-18 creatinine, serum 1.00 mg/dL 0.55-1.30 alanine aminotransferase (SGPT), serum 48 U/L 12-78 aspartate aminotransferase (SGOT), serum 17 U/L 15-37 calcium, serum 9.1 mg/dL 8.5-10.1 bilirubin, serum, total 0.40 mg/dL 0.00-1.00 sodium, serum 142 mmol/L 378-327 3541/06/08 carbon dioxide, venous blood 27.6 mmol/L 21.0-32.0 potassium, serum 4.0 mmol/L 3.5-5.2 chloride, serum 105 mmol/L 98-107 blood glucose 95 mg/dL 65-110 urea nitrogen, blood 8 mg/dL 7-18 creatinine, serum 0.75 mg/dL 0.55-1.30 alanine aminotransferase (SGPT), serum 49 U/L 12-78 aspartate aminotransferase (SGOT), serum 28 U/L 15-37 calcium, serum 9.4 mg/dL 8.5-10.1 bilirubin, serum, total 0.30 mg/dL 0.00-1.00 sodium, serum 140 mmol/L 109-524 1615/08/08 carbon dioxide, venous blood 33.7 mmol/L 21.0-32.0 [...] Rate - Chemistry sodium, serum 139 mmol/L 440-537 4783/12/11 carbon dioxide, venous blood 25.4 mmol/L 21.0-32.0 [...] mg/dL Encounters Code Encounter Date Provider Facility CPT-85885 Level 3 Est. Patient 13:59:59 CDT 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 [facility] CPT-41264 Level 3 Est. Patient 18:18:53 CDT Neeraj Collins MD [facility] CPT-00733 Level 3 Est. Patient 15:50:44 CDT Vishal Hui MD [facility] CPT-92979 Level 3 Est. Patient 11:36:17 CDT Ahmet Carbajal MD [facility] CPT-29474 Level 3 Est. Patient 13:29:16 CDT Vishal Hui MD [facility] CPT-54263 Level 3 Est. Patient 14:27:52 CDT Neeraj Collins MD [facility] CPT-85206 Level 3 Est. Patient 08:56:03 CDT 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 [facility] CPT-34909 Level 4 Est. Patient 12:11:48 CDT Fabiola Johnson [facility] CPT-60799 Level 3 New Patient 16:53:37 CDT Albert Caldera MD [facility] CPT-77301 Level 3 Est. Patient 11:25:49 CDT Renzo Thornton DO [facility] CPT-30797 Level 3 Est. Patient 15:22:01 CDT Ahmet Carbajal MD [facility] CPT-04519 Level 4 Est. Patient 09:00:51 HOMEMAKING REHABILITATION CONSULTANT Vishal Hui MD [facility] CPT-13423 Level 3 Est. Patient 11:37:33 HOMEMAKING REHABILITATION CONSULTANT Vishal Hui MD [facility] CPT-05782 Level 3 Est. Patient 08:41:09 HOMEMAKING REHABILITATION CONSULTANT Vishal Hui MD [facility] CPT-32563 Level 4 Est. Patient 10:19:35 HOMEMAKING REHABILITATION CONSULTANT Vishal Hui MD [facility] CPT-57348 Level 3 Est. Patient 13:35:45 CDT Vishal Hui MD [facility] CPT-66689 Level 4 Est. Patient 10:08:37 CDT Vishal Hui MD [facility] CPT-13338 Level 3 Est. Patient 11:22:10 CDT Vishal Hui MD [facility] CPT-57832 Level 3 Est. Patient 11:03:32 CDT Sahara Rodriguez MD [facility]-15724 Level 3 Est. Patient 09:41:35 CDT Vishal Hui MD [facility] CPT-78504 Level 3 Est. Patient 12:00:41 CDT Neeraj Collins MD [facility] CPT-35076 Level 3 Est. Patient 09:16:24 CDT Vishal Hui MD [facility] CPT-88468 Level 4 Est. Patient 13:59:09 CDT Neeraj Collins MD [facility] CPT-89355 Level 3 Est. Patient 15:19:43 CDT Renzo Thornton DO [facility] CPT-55950 Level 3 Est. Patient 18:10:26 CDT Sahaar Rodriguez MD PhD [facility] CPT-29573 Level 3 Est. Patient 14:49:50 CDT Vishal Hui MD [facility] CPT-70674 Level 4 Est. Patient 18:41:46 CDT Neeraj Collins MD [facility] CPT-39220 Level 4 Est. Patient 09:18:38 HOMEMAKING REHABILITATION CONSULTANT Vishal Hui MD [facility] CPT-71532 Level 3 Est. Patient 14:43:55 HOMEMAKING REHABILITATION CONSULTANT Vishal Hui MD [facility] CPT-25423 Level 3 Est. Patient 15:26:33 HOMEMAKING REHABILITATION CONSULTANT Sahara Rodriguez MD PhD [facility] CPT-27505 Level 3 Est. Patient 10:32:14 HOMEMAKING REHABILITATION CONSULTANT Vishal Hui MD [facility] CPT-52140 Level 3 Est. Patient 15:12:52 HOMEMAKING REHABILITATION CONSULTANT Vishal Hui MD [facility] CPT-12257 Level 4 Est. Patient 09:19:27 CDT Vishal Hui MD [facility] CPT-60972 Level 3 Est. Patient 15:53:00 CDT Renzo Thornton [facility] CPT-60642 Level 3 Est. Patient 15:50:30 CDT Renzo Thornton [facility] CPT-43494 Level 3 Est. Patient 16:55:24 CDT Vishal Hui MD [facility] Procedures Code Procedure Name Date Entry Date Standard Description CPT-85097 UA w micro - LAB USE ONLY 16:21:13 CDT CPT-83423 Wet Mount - LAB USE ONLY 16:21:13 CDT CPT-34369 First Vx - Ix admin for Medicare patients 14:37:47 CDT CPT-73472 Fluzone Preservative Free Intramuscular Suspension 14:37 :47 CDT CPT-93660 Abx/Therapy Injection 13:54:22 CDT CPT-24292 Abx/Therapy Injection 08:47:09 CDT CPT-53600 Abx/Therapy Injection 13:29:56 CDT CPT-97485 Abx/Therapy Injection 08:36:16 CDT CPT-89211 Wet Mount - LAB USE ONLY 17:44:58 CDT CPT-12439 UA w micro - LAB USE ONLY 17:44:58 CDT CPT-06022 CMP - LAB USE ONLY 17:44:58 CDT CPT-47953 Venipuncture Draw Fee 17:44:58 CDT CPT-84226 Cervical Min 4V - XRAY USE ONLY 09:01:40 CDT CPT-24845 Chest 2V Frontal and Lat - XRAY USE ONLY 11:06:31 CDT CPT-03936 EKG Trac and Interp - XRAY USE ONLY 11:31:43 CDT 08/26 CPT-J3420 Vitamin B12 1000mcg (Cyanocobalamin) 08:10:26 HOMEMAKING REHABILITATION CONSULTANT 04/12 CPT-97015 Abx/Therapy Injection 08:10:26 HOMEMAKING REHABILITATION CONSULTANT CPT-G0438 Initial Annual Wellness Exam 19:01:01 HOMEMAKING REHABILITATION CONSULTANT CPT-J3420 Vitamin B12 1000mcg (Cyanocobalamin) 16:57:46 CDT 08/14 CPT-32410 Recombivax HB Injection Suspension 5 MCG/0.5ML 08:37:50 HOMEMAKING REHABILITATION CONSULTANT CPT-57268 Immunization Single Admin 08:37:50 HOMEMAKING REHABILITATION CONSULTANT CPT-J3420 Vitamin B12 1000mcg (Cyanocobalamin) 08:32:16 HOMEMAKING REHABILITATION CONSULTANT 03/11 CPT-12869 Abx/Therapy Injection 08:32:16 HOMEMAKING REHABILITATION CONSULTANT CPT-68140 Chest 2V Frontal and Lat 11:46:38 HOMEMAKING REHABILITATION CONSULTANT CPT-30462 Venipuncture Draw Fee 09:12:45 HOMEMAKING REHABILITATION CONSULTANT CPT-J3420 Vitamin B12 1000mcg (Cyanocobalamin) 08:50:15 HOMEMAKING REHABILITATION CONSULTANT 02/08 CPT-28264 Abx/Therapy Injection 08:50:15 HOMEMAKING REHABILITATION CONSULTANT CPT-Cryo Cryotherapy 10:19:35 HOMEMAKING REHABILITATION CONSULTANT CPT-000 Give Appropriate Flu Vaccine 09:22:16 CDT CPT-J3420 Vitamin B12 1000mcg (Cyanocobalamin) 19:08:57 CDT 01/11 CPT-54593 Abx/Therapy Injection 19:08:57 CDT CPT-J3420 Vitamin B12 1000mcg (Cyanocobalamin) 08:19:08 CDT 12/11 CPT-18109 Abx/Therapy Injection 08:19:08 CDT CPT-J3420 Vitamin B12 1000mcg (Cyanocobalamin) 14:48:00 CDT 11/09 CPT-94841 Abx/Therapy Injection 14:47:59 CDT CPT-J3420 Vitamin B12 1000mcg (Cyanocobalamin) 08:34:04 CDT 10/09 CPT-61303 Abx/Therapy Injection 08:34:04 CDT CPT-J3420 Vitamin B12 1000mcg (Cyanocobalamin) 09:18:52 CDT 09/11 CPT-30803 Abx/Therapy Injection 09:18:52 CDT CPT-J3420 Vitamin B12 1000mcg (Cyanocobalamin) 08:35:44 CDT 09/04 CPT-24009 Abx/Therapy Injection 08:35:44 CDT CPT-69785 Immunization Single Admin 11:07:16 CDT CPT-40023 Hepatitis B adult IM 11:07:16 CDT CPT-J3420 Vitamin B12 1000mcg (Cyanocobalamin) 11:00:49 CDT 08/28 CPT-J1040 Depo Medrol 80 mg (Methyl Prednisolone Acetate) 11:00: 49 CDT CPT-63902 Abx/Therapy Injection 11:00:49 CDT CPT-J1040 Depo Medrol 80 mg (Methyl Prednisolone Acetate) 09:16: 23 CDT CPT-J3420 Vitamin B12 1000mcg (Cyanocobalamin) 08:27:05 CDT 08/20 CPT-83577 Abx/Therapy Injection 08:27:05 CDT CPT-91111 Recombivax HB Injection Suspension 5 MCG/0.5ML 10:00:41 CDT CPT-99486 Administration single or combination vaccine inc oral 10 :00:41 CDT CPT-80491 Sono transvag pelvis non OB uterus ovaries cervix 16:36: 57 CDT CPT-61287 LS spine comp w obliq 09:50:55 [employer] CPT-21009 Abd compl w upright 09:50:55 [employer] CPT-J1100 Decadron 4mg (Dexamethasone) 15:51:24 [employer] CPT-J1030 Depo Medrol 40 mg (Methyl Prednisolone Acetate) 15:51: 24 [employer] CPT-92713 Abx/Therapy Injection 15:51:24 [employer] CPT-J1100 Decadron 4mg (Dexamethasone) 15:26:33 [employer] CPT-J1030 Depo Medrol 40 mg (Methyl Prednisolone Acetate) 15:26: 33 [employer] CPT-49037 Sono retroperitoneal complete kidneys and bladder 17:15: 30 CDT CPT-72352 Abd compl w upright 16:09:25 CDT CPT-J1100 Decadron 8mg (Dexamethasone) 17:07:57 CDT CPT-61603 Abx/Therapy Injection 17:07:57 CDT CPT-J1100 Decadron 8mg (Dexamethasone) 16:55:24 CDT CPT-11923 Chest 2V Frontal and Lat 16:32:44 CDT
--- OUTSIDE RECORDS SUMMARY | 2016-11-04 12:27 | XMS REPORT | Clinical Summary ---
Author Author Admin, E Organization [facility] Address Unknown Phone Unavailable Allergies, Adverse Reactions, [...] breath Nocturnal hypoxia 799.02 Active Fabiola Johnson [employer] Hypoxemia Neck pain 723.1 Resolved Vishal Hui [...] Patient Instruction FLUTICASONE PROPIONATE 50 MCG/ACT SUSP 1 to 2 sprays each nostril daily for allergies FLUTICASONE PROPIONATE 35673600458 Active Suzan Boo APRN Active GUAIFENESIN-CODEINE 100-10 MG/5ML SYRP 5ml every 4 to 6 hours as needed for cough GUAIFENESIN-CODEINE 38827003179 Active Ahmet Carbajal MD Active PREDNISONE 20 MG TABS 2 daily for 5 days then 1 daily for 5 days PREDNISONE 35538945704 Active Ahmet Carbajal MD Active LAMICTAL 100 MG ORAL TABS 1 tab q.d LAMOTRIGINE 62429739599 Active Ahmet Carbajal MD Active BENADRYL 25 MG CAP 4 po at bedtime for insomnia DIPHENHYDRAMINE HCL 83242371790 No Longer Active Ahmet Carbajal MD Active ADVAIR DISKUS 250-50 MCG/DOSE INH AEPB 1 puff twice a day for asthma FLUTICASONE-SALMETEROL 24194040427 No Longer Active Ahmet Carbajal MD Active KLONOPIN 1 MG ORAL TABS 1 tab po TID CLONAZEPAM 63760872762 No Longer Active Ahmet Carbajal MD Active ABILIFY MAINTENA 400 MG IM SUSR 400mg injection every 26 days ARIPIPRAZOLE 14601011751 No Longer Active Ahmet Carbajal MD Active HALOPERIDOL 10 MG ORAL TABS 1 tab q.d HALOPERIDOL 61898390725 Active Ahmet Carbajal MD Active ASPIRIN 325 MG ORAL TABS 1 tab q.d ASPIRIN 21259893315 Active Ahmet Carbajal MD Active HYDROCODONE-ACETAMINOPHEN 5-325 MG ORAL TABS 1 tab two times a day HYDROCODONE-ACETAMINOPHEN 87855153494 Active Ahmet Carbajal MD Active TRAMADOL HCL 50 MG TABS 1/2-1 tab TID PRN TRAMADOL HCL 36152476728 No Longer Active Ahmet Carbajal MD Active BACTRIM DS 800-160 MG TABS 1 twice a day SULFAMETHOXAZOLE- TRIMETHOPRIM 36818201469 No Longer Active Ahmet Carbajal MD Active PROAIR HFA 108 (90 BASE) MCG/ACT AERS 2 puffs four times a day as needed 2015 ALBUTEROL SULFATE 20708383186 Active Ahmet Carbajal MD Active EQ NICOTINE 21 MG/24HR TRANS PT24 Apply daily to stop smoking NICOTINE 61622013427 Active Ahmet Carbajal MD Active MONISTAT 7 COMBO PACK WOODROW 100 & 2 MG-% (9GM) VAG KIT 1 applicatorful per vagina q pm x 7 MICONAZOLE NITRATE 76747618444 No Longer Active Ahmet Carbajal MD Active FLAGYL 500 MG TAB 1 tablet by mouth bid METRONIDAZOLE 38563738576 No Longer Active Ahmet Carbajal MD Active OXYCODONE HCL ER 10 MG ORAL T12A 1/2 tab by mouth every 4 hours prn OXYCODONE HCL 94932304434 No Longer Active Ahmet Carbajal MD Active METHYLPREDNISOLONE 4 MG ORAL TABS po daily METHYLPREDNISOLONE 46208361531 No Longer Active Ahmet Carbajal MD Active LEVOFLOXACIN 500 MG ORAL TABS po daily LEVOFLOXACIN 58250133501 No Longer Active Ahmet Carbajal MD Active VIIBRYD 10 MG ORAL TABS Take 1 tablet once a day VILAZODONE HCL 71036556057 No Longer Active Ahmet Carbajal MD Active TOPAMAX 50 MG ORAL TABS 1 tab twice daily TOPIRAMATE 15158924210 No Longer Active Ahmet Carbajal MD Active DICLOFENAC SODIUM 50 MG TBEC 1 tablet by mouth four times daily PRN Pain 2015 DICLOFENAC SODIUM 69832393901 No Longer Active Ahmet Carbajal MD Active ADZENYS XR-ODT 6.3 MG ORAL TBED 1 tab po daily for ADHD AMPHETAMINE 80243591074 No Longer Active Ahmet Carbajal MD Active CHANTIX 1 MG TABS 1 twice a day to help quit smoking VARENICLINE TARTRATE 15115512925 No Longer Active Dipika Burgos MD Active CHANTIX STARTING MONTH EARNEST 0.5 MG X 11 & 1 MG X 42 TABS take as directed 2015 VARENICLINE TARTRATE 86572208596 No Longer Active Dipika Burgos MD Active TESSALON PERLES 100 MG CAP 1 to 2 tablets by mouth 3 times daily as needed for cough BENZONATATE 47340774964 No Longer Active 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 [employer] Active IMITREX 50 MG ORAL TABS 0.5 po x 1 PRN Headache. May repeat dose x 1 in 2 hours if needed SUMATRIPTAN SUCCINATE 59133107228 Active TAMARA Casey Active HYDROCODONE-ACETAMINOPHEN 5-325 MG TABS 1 to 2 four times a day as needed for pain use until can be seen by specialist HYDROCODONE- ACETAMINOPHEN 54846441069 No Longer Active Vishal Hui MD Active PROAIR HFA 108 (90 BASE) MCG/ACT AERS 2 puffs four times a day as needed 2015 ALBUTEROL SULFATE 20725490791 No Longer Active Vishal Hui MD Active PREDNISONE 20 MG TABS 2 daily for 5 days then 1 daily for 5 days PREDNISONE 42296672386 No Longer Active Vishal Hui MD Active ZITHROMAX Z-EARNEST 250 MG TABS 2 today and then 1 daily for 4 days AZITHROMYCIN 41928749450 No Longer Active Vishal Hui MD Active DICLOFENAC POTASSIUM TABS Take 1 tablet twice a day (pt. is not sure of the dose.) DICLOFENAC POTASSIUM TABS 40405757522 No Longer Active Vishal Hui MD Active VERAPAMIL HCL ER 120 MG ORAL CR-TABS Take 1 tablet by mouth twice a day. VERAPAMIL HCL 89379742850 Active Vishal Hui MD Active FLAGYL 500 MG TAB 1 tablet by mouth bid METRONIDAZOLE 40980773756 No Longer Active Vishal Hui MD Active FLUTICASONE PROPIONATE 50 MCG/ACT SUSP 2 sprays each nostril daily before bed. FLUTICASONE PROPIONATE 23649307055 Active Fabiola Johnson APRN Active VALIUM 5 MG TAB Take 1-2 tablets daily DIAZEPAM 30338926831 No Longer Active Fabiola Johnson APRN Active METOPROLOL TARTRATE 25 MG ORAL TABS 1/2 tablet twice daily for heart rate and blood pressure METOPROLOL TARTRATE 58069247726 No Longer Active Fabiola Johnson APRN Active MIRALAX ORAL POWD 17GMS DAILY IN WATER POLYETHYLENE GLYCOL 3350 26218165762 Active Vishal Hui MD Active MIRALAX PACK 1 po qd PRN Constipation POLYETHYLENE GLYCOL 3350 26734859520 No Longer Active Ahmet Carbajal MD Active MINIPRESS 2 MG CAPS 4 cap po at night PRAZOSIN HCL 40935631030 No Longer Active Ahmet Carbajal MD Active PIROXICAM 20 MG CAPS 1 cap po qd PRN Pain PIROXICAM 09695093894 No Longer Active Ahmet Carbajal MD Active TRAMADOL HCL 50 MG TABS 1-2 po TID PRN Pain TRAMADOL HCL 48584029124 No Longer Active Ahmet Carbajal MD Active METOPROLOL TARTRATE 50 MG TAB 1 po bid METOPROLOL TARTRATE 76701525120 No Longer Active Ahmet Carbajal MD Active ABILIFY 15 MG ORAL TABS 1 tab daily ARIPIPRAZOLE 02120845567 No Longer Active Ahmet Carbajal MD Active PROZAC 20 MG ORAL CAPS 1 tab daily FLUOXETINE HCL 71745694606 No Longer Active Ahmet Carbajal MD Active AMBIEN 5 MG ORAL TABS 1 tab at bedtime ZOLPIDEM TARTRATE 32413178751 No Longer Active Ahmet Carbajal MD Active PREDNISONE 20 MG TAB 2 tabs daily for 4 days, 1 tab daily for 4 days, 1/2 tab daily for 4 days PREDNISONE 59089909485 No Longer Active Ahmet Carbajal MD Active KEFLEX 500 MG CAP 1 po TID x 10 days CEPHALEXIN 34783248929 No Longer Active Vishal Hui MD Active SAPHRIS 5 MG SUBL 1 po bid ASENAPINE MALEATE 13459220440 No Longer Active Jillina Fralebron [employer] Active LATUDA 80 MG TABS Take one by mouth daily LURASIDONE HCL 29238491418 No Longer Active Jillina Fradwightl [employer]ER Active AMLODIPINE BESYLATE 5 MG TABS 1 tablet by mouth daily AMLODIPINE BESYLATE 54554736699 No Longer Active Jillina Mauricio NORIEGA Active AMITRIPTYLINE HCL 100 MG TAB one at hs AMITRIPTYLINE HCL 68275077828 No Longer Active Vishal Hui MD Active TRAZODONE HCL 100 MG TAB take 1 at bedtime TRAZODONE HCL 10380783210 No Longer Active Vishal Hui MD Active VYVANSE 40 MG CAPS 1 daily, LISDEXAMFETAMINE DIMESYLATE 04470695636 No Longer Active Vishal Hui MD Active IBUPROFEN 600 MG TAB 1 po TID PRN IBUPROFEN 07134583080 No Longer Active Vishal Hui MD Active PROZAC 20 MG CAP Take one by mouth daily FLUOXETINE HCL 06454871455 No Longer Active Vishal Hui MD Active ZOFRAN 4 MG TABS 1 po q6hr PRN Nausea ONDANSETRON HCL Active Vishal Hui MD Active BACTRIM DS 800-160 MG TABS 1 pill by mouth twice daily SULFAMETHOXAZOLE-TRIMETHOPRIM 26475542905 No Longer Active Sahara Rodriguez MD PhD Active DIFLUCAN 150 MG TAB 1 tablet by mouth daily FLUCONAZOLE 93572407285 No Longer Active Vishal Hui MD Active TIZANIDINE HCL 4 MG TABS 1 po q6hr PRN Muscle Spasm/Back Pain TIZANIDINE HCL 89253612076 Active Vishal Hui MD Active CLINDAMYCIN HCL 150 MG CAPS 1 four times a day CLINDAMYCIN HCL 72277587365 No Longer Active Neeraj Collins MD Active KEFLEX 500 MG ORAL CAPS 1 cap QID by mouth CEPHALEXIN 34851298226 No Longer Active Neeraj Collins MD Active DIFLUCAN 150 MG TABS 1 pill every other day x 2 doses FLUCONAZOLE 72107865928 No Longer Active Sahara Rodriguez MD PhD Active MELATONIN 3 MG CAPS 2 po q hs MELATONIN 95319660079 No Longer Active Sahara Rodriguez MD PhD Active MULTIVITAMINS CAPS Take one by mouth daily MULTIPLE VITAMIN 92148457290 No Longer Active Sahara Rodriguez MD PhD Active BACTRIM DS 800-160 MG TAB 1 tab by mouth twice daily TRIMETHOPRIM-SULFAMETHOXAZOLE 51336255845 No Longer Active Sahara Rodriguez MD PhD Active [facility] PROBIOTIC ORAL CHEW 2 daily po PROBIOTIC PRODUCT 36482027266 No Longer Active Sahara Rodriguez MD PhD Active BACTRIM DS 800-160 MG TABS 1 po BID x 7 days SULFAMETHOXAZOLE-TRIMETHOPRIM 05935201915 No Longer Active Vishal Hui MD Active CHANTIX STARTING MONTH EARNEST 0.5 MG X 11 & 1 MG X 42 TABS 0.5mg daily for 3 days , then 0.5mg BID for 4 days, then 1mg BID VARENICLINE TARTRATE 86381265736 No Longer Active TAMARA Gray Active VERAPAMIL HCL CR 120 MG TAB CR 1 po bid VERAPAMIL HCL 31951687455 No Longer Active Vishal Hui MD Active METOPROLOL SUCCINATE 50 MG TB24 1 tablet by mouth daily METOPROLOL SUCCINATE 05444740909 No Longer Active Vishal Hui MD Active SAPHRIS 10 MG SUBL 1 tab po bid ASENAPINE MALEATE 68489189930 No Longer Active Vishal Hui MD Active LISINOPRIL 20 MG TABS 1 tab po qd LISINOPRIL 40158153103 No Longer Active Vishal Hui MD Active LATUDA 20 MG TABS Take one by mouth daily LURASIDONE HCL 17015355779 No Longer Active Vishal Hui MD Active TRAZODONE HCL 50 MG TABS 1/2 tab po qd prn for anxiety TRAZODONE HCL 51204786253 No Longer Active Vishal Hui MD Active OMEPRAZOLE 20 MG TBEC 1 po q a.m. 30min prior to first food intake OMEPRAZOLE 81319945421 Active Vishal Hui MD Active RANITIDINE HCL 150 MG CAPS 1 twice a day RANITIDINE HCL 39511186294 Active Jilljanee Martínez APRN Active LINZESS 290 MCG CAPS Take one by mouth daily LINACLOTIDE 45065108123 No Longer Active Vishal Hui MD Active SAPHRIS 5 MG SUBL 1 tab po qd ASENAPINE MALEATE 01160383514 No Longer Active Vishal Hui MD Active ZALEPLON 10 MG CAPS 1 cap po every other night ZALEPLON 52921140569 No Longer Active Vishal Hui MD Active LYRICA 50 MG CAPS 1 tab po TID PREGABALIN 69322179813 No Longer Active Vishal Hui MD Active LORATADINE 10 MG TABS 1 tab po qd LORATADINE 33748537601 No Longer Active Vishal Hui MD Active VERAPAMIL HCL ER 180 MG CR-TABS 1 tab po bid VERAPAMIL HCL 60350999682 No Longer Active Vishal Hui MD Active MIRALAX POWD 1 capfull once daily POLYETHYLENE GLYCOL 3350 50606775853 No Longer Active Vishal Hui MD Active PREDNISONE 20 MG TABS 1 tab po qd PREDNISONE 36788575670 No Longer Active Renzo Thornton DO Active LEVOFLOXACIN 500 MG TABS 1 tab po qd LEVOFLOXACIN 99434509883 No Longer Active Renzo Thornton DO Active BUSPIRONE HCL 15 MG TABS 1 tab po TID BUSPIRONE HCL 05808298445 No Longer Active Renzo Thornton DO Active BENZTROPINE MESYLATE 1 MG TABS 1 tab po qd BENZTROPINE MESYLATE 16644077412 No Longer Active Renzo Thornton DO Active ATENOLOL 25 MG TABS 1 tab po qd ATENOLOL 79162561891 No Longer Active Renzo Thornton DO Active ESCITALOPRAM OXALATE 20 MG TABS 1 tab po qd ESCITALOPRAM OXALATE 85751489755 No Longer Active Renzo Thornton DO Active ADVAIR DISKUS 250-50 MCG/DOSE AEPB 1 puff BID FLUTICASONE-SALMETEROL 78629213335 No Longer Active Renzo Thornton DO Active PREDNISONE 20 MG TAB 2 tabs daily for 3 days, 1 tab daily for 3 days, 1/2 tab daily for 2 days PREDNISONE 25793829934 No Longer Active Vishal Hui MD Active CEFDINIR 300 MG CAPS by mouth twice a day CEFDINIR 44434466026 No Longer Active Vishal Hui MD Active LANSOPRAZOLE 30 MG CPDR 1 cap po qd LANSOPRAZOLE 26549718056 No Longer Active Vishal Hui MD Active BACLOFEN 20 MG TABS 1 tab po tid BACLOFEN 95765217146 No Longer Active Vishal Hui MD Active ADVAIR DISKUS 250-50 MCG/DOSE AEPB 1 puff BID ADVAIR DISKUS 250-50 MCG/DOSE AEPB FLUTICASONE-SALMETEROL Inactive ESCITALOPRAM OXALATE 20 MG TABS 1 tab po qd ESCITALOPRAM OXALATE 20 MG TABS 053292 ESCITALOPRAM OXALATE Inactive ATENOLOL 25 MG TABS 1 tab po qd ATENOLOL 25 MG TABS 383828 ATENOLOL Inactive BENZTROPINE MESYLATE 1 MG TABS 1 tab po qd BENZTROPINE MESYLATE 1 MG TABS 153148 BENZTROPINE MESYLATE Inactive BUSPIRONE HCL 15 MG TABS 1 tab po TID BUSPIRONE HCL 15 MG TABS 066620 BUSPIRONE HCL Inactive LEVOFLOXACIN 500 MG TABS 1 tab po qd LEVOFLOXACIN 500 MG TABS 075779 LEVOFLOXACIN Inactive PREDNISONE 20 MG TABS 1 tab po qd PREDNISONE 20 MG TABS 228870 PREDNISONE Inactive MIRALAX POWD 1 capfull once daily MIRALAX POWD 563999 POLYETHYLENE GLYCOL 3350 Inactive VERAPAMIL HCL ER 180 MG CR-TABS 1 tab po bid VERAPAMIL HCL ER 180 MG CR-TABS VERAPAMIL HCL Inactive LORATADINE 10 MG TABS 1 tab po qd LORATADINE 10 MG TABS 228065 LORATADINE Inactive LYRICA 50 MG CAPS 1 tab po TID LYRICA 50 MG CAPS PREGABALIN Inactive ZALEPLON 10 MG CAPS 1 cap po every other night ZALEPLON 10 MG CAPS 939007 ZALEPLON Inactive SAPHRIS 5 MG SUBL 1 tab po qd SAPHRIS 5 MG SUBL ASENAPINE MALEATE Inactive TRAZODONE HCL 50 MG TABS 1/2 tab po qd prn for anxiety TRAZODONE HCL 50 MG TABS 828388 TRAZODONE HCL Inactive LATUDA 20 MG TABS Take one by mouth daily LATUDA 20 MG TABS LURASIDONE HCL Inactive LISINOPRIL 20 MG TABS 1 tab po qd LISINOPRIL 20 MG TABS 378395 LISINOPRIL Inactive SAPHRIS 10 MG SUBL 1 [...] twice daily BACTRIM DS 800-160 MG TAB 590380 TRIMETHOPRIM-SULFAMETHOXAZOLE Inactive MULTIVITAMINS CAPS Take one by mouth daily MULTIVITAMINS CAPS MULTIPLE VITAMIN Inactive MELATONIN 3 MG CAPS 2 po q hs MELATONIN 3 MG CAPS 760498 MELATONIN Inactive KEFLEX 500 MG ORAL CAPS 1 cap QID by mouth KEFLEX 500 MG ORAL CAPS 029500 CEPHALEXIN Inactive CLINDAMYCIN HCL 150 MG CAPS 1 four times a day CLINDAMYCIN HCL 150 MG CAPS 522141 CLINDAMYCIN HCL Inactive DIFLUCAN 150 MG TAB 1 tablet by mouth daily DIFLUCAN 150 MG TAB 646426 FLUCONAZOLE Inactive PROZAC 20 MG CAP Take one by mouth daily PROZAC 20 MG CAP 069819 FLUOXETINE HCL Inactive IBUPROFEN 600 MG TAB 1 po TID PRN IBUPROFEN 600 MG TAB 736459 IBUPROFEN Inactive VYVANSE 40 MG CAPS 1 daily, VYVANSE 40 MG CAPS LISDEXAMFETAMINE DIMESYLATE Inactive TRAZODONE HCL 100 MG TAB take 1 at bedtime TRAZODONE HCL 100 MG TAB 490273 TRAZODONE HCL Inactive AMITRIPTYLINE HCL 100 MG TAB one at hs AMITRIPTYLINE HCL 100 MG TAB 983014 AMITRIPTYLINE HCL Inactive AMLODIPINE BESYLATE 5 MG TABS 1 tablet by mouth daily AMLODIPINE BESYLATE 5 MG TABS 576501 AMLODIPINE BESYLATE Inactive LATUDA 80 MG TABS Take one by mouth daily LATUDA 80 MG TABS LURASIDONE HCL Inactive SAPHRIS 5 MG SUBL 1 po bid SAPHRIS 5 MG SUBL ASENAPINE MALEATE Inactive PREDNISONE 20 MG TAB 2 tabs daily for 4 days, 1 tab daily for 4 days, 1/2 tab daily for 4 days PREDNISONE 20 MG TAB 364974 PREDNISONE Inactive AMBIEN 5 MG ORAL TABS 1 tab at bedtime AMBIEN 5 MG ORAL TABS 061215 ZOLPIDEM TARTRATE Inactive PROZAC 20 MG ORAL CAPS 1 tab daily PROZAC 20 MG ORAL CAPS 012167 FLUOXETINE HCL Inactive ABILIFY 15 MG ORAL TABS 1 tab daily ABILIFY 15 MG ORAL TABS 309749 ARIPIPRAZOLE Inactive METOPROLOL TARTRATE 50 MG TAB 1 po bid METOPROLOL TARTRATE 50 MG TAB 466031 METOPROLOL TARTRATE Inactive TRAMADOL HCL 50 MG TABS 1-2 po TID PRN Pain TRAMADOL HCL 50 MG TABS 778520 TRAMADOL HCL Inactive PIROXICAM 20 MG CAPS 1 cap po qd PRN Pain PIROXICAM 20 MG CAPS 197855 PIROXICAM Inactive MINIPRESS 2 MG CAPS 4 cap po at night MINIPRESS 2 MG CAPS 378957 PRAZOSIN HCL Inactive MIRALAX PACK 1 po qd PRN Constipation MIRALAX PACK 565988 POLYETHYLENE GLYCOL 3350 Inactive METOPROLOL TARTRATE 25 MG ORAL TABS 1/2 tablet twice daily for heart rate and blood pressure METOPROLOL TARTRATE 25 MG ORAL TABS 232076 METOPROLOL TARTRATE Inactive VALIUM 5 MG TAB Take 1-2 tablets daily VALIUM 5 MG TAB 092598 DIAZEPAM Inactive FLAGYL 500 MG TAB 1 tablet by mouth bid FLAGYL 500 MG TAB 570985 METRONIDAZOLE Inactive DICLOFENAC POTASSIUM TABS Take 1 tablet twice a day (pt. is not sure of the dose.) DICLOFENAC POTASSIUM TABS DICLOFENAC POTASSIUM TABS Inactive ZITHROMAX Z-EARNEST 250 MG TABS 2 today and then 1 daily for 4 days ZITHROMAX Z-EARNEST 250 MG TABS 1239633 AZITHROMYCIN Inactive PREDNISONE 20 MG TABS 2 daily for 5 days then 1 daily for 5 days PREDNISONE 20 MG TABS 474947 PREDNISONE Inactive PROAIR HFA 108 (90 BASE) MCG/ACT AERS 2 puffs four times a day as needed 2015 PROAIR HFA 108 (90 BASE) MCG/ACT AERS ALBUTEROL SULFATE Inactive HYDROCODONE-ACETAMINOPHEN 5-325 MG TABS 1 to 2 four times a day as needed for pain use until can be seen by specialist HYDROCODONE- ACETAMINOPHEN 5-325 MG TABS 799774 HYDROCODONE-ACETAMINOPHEN Inactive TESSALON PERLES 100 MG CAP 1 to 2 tablets by mouth 3 times daily as needed for cough TESSALON PERLES 100 MG CAP 928374 BENZONATATE Inactive CHANTIX STARTING MONTH EARNEST 0.5 [...] Pain 2015 DICLOFENAC SODIUM 50 MG TBEC 035939 DICLOFENAC SODIUM Inactive TOPAMAX 50 MG ORAL TABS 1 tab twice daily TOPAMAX 50 MG ORAL TABS 729682 TOPIRAMATE Inactive VIIBRYD 10 MG ORAL TABS Take 1 tablet once a day VIIBRYD 10 MG ORAL TABS VILAZODONE HCL Inactive LEVOFLOXACIN 500 MG ORAL TABS po daily LEVOFLOXACIN 500 MG ORAL TABS 640911 LEVOFLOXACIN Inactive METHYLPREDNISOLONE 4 MG ORAL TABS po daily METHYLPREDNISOLONE 4 MG ORAL TABS 389361 METHYLPREDNISOLONE Inactive OXYCODONE HCL ER 10 MG ORAL T12A 1/2 tab by mouth every 4 hours prn OXYCODONE HCL ER 10 MG ORAL T12A OXYCODONE HCL Inactive FLAGYL 500 MG TAB 1 tablet by mouth bid FLAGYL 500 MG TAB 288501 METRONIDAZOLE Inactive MONISTAT 7 COMBO PACK WOODROW 100 & 2 MG-% (9GM) VAG KIT 1 applicatorful per vagina q pm x 7 MONISTAT 7 COMBO PACK WOODROW 100 & 2 MG-% (9GM) VAG KIT MICONAZOLE NITRATE Inactive BACTRIM DS 800-160 MG TABS 1 twice a day BACTRIM DS 800-160 MG TABS 302143 SULFAMETHOXAZOLE-TRIMETHOPRIM Inactive TRAMADOL HCL 50 MG TABS 1/2-1 tab TID PRN TRAMADOL HCL 50 MG TABS 097592 TRAMADOL HCL Inactive ABILIFY MAINTENA 400 MG IM SUSR 400mg injection every 26 days ABILIFY MAINTENA 400 MG IM SUSR ARIPIPRAZOLE Inactive KLONOPIN 1 MG ORAL TABS 1 tab po TID KLONOPIN 1 MG ORAL TABS 335492 CLONAZEPAM Inactive ADVAIR DISKUS 250-50 MCG/DOSE INH AEPB 1 puff twice a day for asthma ADVAIR DISKUS 250-50 MCG/DOSE INH AEPB FLUTICASONE- SALMETEROL Inactive BENADRYL 25 MG CAP 4 po at bedtime for insomnia BENADRYL 25 MG CAP DIPHENHYDRAMINE HCL Inactive CEFDINIR 300 MG CAPS by mouth twice a day CEFDINIR 300 MG CAPS 167431 CEFDINIR Inactive PREDNISONE 20 MG TAB 2 tabs daily for 3 days, 1 tab daily for 3 days, 1/2 tab daily for 2 days PREDNISONE 20 MG TAB 178077 PREDNISONE Inactive BACTRIM DS 800-160 MG TABS 1 po BID x 7 days BACTRIM DS 800-160 MG TABS 19820521 SULFAMETHOXAZOLE-TRIMETHOPRIM Inactive DIFLUCAN 150 MG TABS 1 pill every other day x 2 doses DIFLUCAN 150 MG TABS 358927 FLUCONAZOLE Inactive BACTRIM DS 800-160 MG TABS 1 pill by mouth twice daily BACTRIM DS 800-160 MG TABS 19820521 SULFAMETHOXAZOLE-TRIMETHOPRIM Inactive KEFLEX 500 MG CAP 1 po TID x 10 days KEFLEX 500 MG CAP 431317 CEPHALEXIN Inactive Advance Directives Directive Description Start [...] 369 10^3/MM^3 10*3/mm3 142-424 Lab Report: Chlamydia/GC APTIMA/[id number] - Lab chlamydia DNA probe NOT DETECTED NOT DETECTED Lab Report: Chlamydia/GC APTIMA/[id number] - Microbiology Neisseria gonorrhoeae DNA probe NOT DETECTED NOT DETECTED Lab Report: Comp. Metabolic Panel - Chemistry sodium, serum 142 mmol/L 275-045 9661/06/08 carbon dioxide, venous blood 27.6 mmol/L 21.0-32.0 potassium, serum 4.0 mmol/L 3.5-5.2 chloride, serum 105 mmol/L 98-107 blood glucose 95 mg/dL 65-110 urea nitrogen, blood 8 mg/dL 7-18 creatinine, serum 0.75 mg/dL 0.55-1.30 alanine aminotransferase (SGPT), serum 49 U/L 12-78 aspartate aminotransferase (SGOT), serum 28 U/L 15-37 calcium, serum 9.4 mg/dL 8.5-10.1 bilirubin, serum, total 0.30 mg/dL 0.00-1.00 sodium, serum 140 mmol/L 690-271 6460/08/08 carbon dioxide, venous blood 33.7 mmol/L 21.0-32.0 [...] mg/dL Encounters Code Encounter Date Provider Facility CPT-59213 Level 3 Est. Patient 10:40:11 [employer] Ahmet Carbajal MD [facility] CPT-08188 Level 3 Est. Patient 15:07:06 [employer] Neeraj Collins MD [facility] CPT-88103 Level 4 Est. Patient 14:45:00 [employer] Ahmet Carbajal MD [facility] CPT-73128 Level 3 Est. Patient 13:59:59 CDT 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 APRN [facility] CPT-69746 Level 3 Est. Patient 18:18:53 CDT Neeraj Collins MD [facility] CPT-17329 Level 3 Est. Patient 15:50:44 CDT Vishal Hui MD [facility] CPT-87207 Level 3 Est. Patient 11:36:17 CDT Ahmet Carbajal MD [facility] CPT-96867 Level 3 Est. Patient 13:29:16 CDT Vishal uHi MD [facility] CPT-89421 Level 3 Est. Patient 14:27:52 CDT Neeraj Collins MD [facility] CPT-01514 Level 3 Est. Patient 08:56:03 CDT 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 [facility] CPT-47471 Level 4 Est. Patient 12:11:48 CDT Fabiola Johnson [facility] CPT-53093 Level 3 New Patient 16:53:37 CDT Albert Caldera MD [facility] CPT-76726 Level 3 Est. Patient 11:25:49 CDT Renzo Thornton DO [facility] CPT-47557 Level 3 Est. Patient 15:22:01 CDT Ahmet Carbajal MD [facility] CPT-29421 Level 4 Est. Patient 09:00:51 [employer] Vishal Hui MD [facility] CPT-77194 Level 3 Est. Patient 11:37:33 [employer] Vishal Hui MD [facility] CPT-01901 Level 3 Est. Patient 08:41:09 [employer] Vishal Hui MD [facility] CPT-60908 Level 4 Est. Patient 10:19:35 [employer] Vishal Hui MD [facility] CPT-41225 Level 3 Est. Patient 13:35:45 CDT Vishal Hui MD [facility] CPT-59370 Level 4 Est. Patient 10:08:37 CDT Vishal Hui MD [facility]-58713 Level 3 Est. Patient 11:22:10 CDT Vishal Hui MD [facility]-60958 Level 3 Est. Patient 11:03:32 CDT Sahara Rodriguez MD [facility]-98834 Level 3 Est. Patient 09:41:35 CDT Vishal Hui MD [facility]-66056 Level 3 Est. Patient 12:00:41 CDT Neeraj Collins MD [facility] CPT-02281 Level 3 Est. Patient 09:16:24 CDT Vishal Hui MD [facility]-11088 Level 4 Est. Patient 13:59:09 CDT Neeraj Collins MD [facility]-86104 Level 3 Est. Patient 15:19:43 CDT Renzo Thornton DO [facility] CPT-65101 Level 3 Est. Patient 18:10:26 CDT Sahara Rodriguez MD [facility]-75003 Level 3 Est. Patient 14:49:50 CDT Vishal Hui MD [facility]-08455 Level 4 Est. Patient 18:41:46 CDT Neeraj Collins MD [facility]-29316 Level 4 Est. Patient 09:18:38 [employer] Vishal Hui MD [facility]-72138 Level 3 Est. Patient 14:43:55 [employer] Vishal Hui MD [facility] CPT-19196 Level 3 Est. Patient 15:26:33 [employer] Sahara Rodriguez MD [facility]-25856 Level 3 Est. Patient 10:32:14 [employer] Vishal Hui MD [facility]-22772 Level 3 Est. Patient 15:12:52 [employer] Vishal Hui MD [facility] CPT-05058 Level 4 Est. Patient 09:19:27 CDT Vishal Hui MD [facility] CPT-63600 Level 3 Est. Patient 15:53:00 CDT Renzo Thornton [facility] CPT-46975 Level 3 Est. Patient 15:50:30 CDT Renzo Thornton [facility] CPT-53069 Level 3 Est. Patient 16:55:24 CDT Vishal Hui MD [facility] Procedures Code Procedure Name Date Entry Date Standard Description CPT-G0439 [facility] Annual Wellness Exam 09:30:58 [employer] CPT-31915 TSH - LAB USE ONLY 08:50:26 [employer] CPT-85288 CBC - LAB USE ONLY 08:50:26 [employer] CPT-89879 Venipuncture Draw Fee 08:50:26 [employer] CPT-50310 Abx/Therapy Injection 17:34:30 [employer] CPT-12695 Nexplanon Removal with Reinsertion 14:09:32 CDT CPT-J7307 Nexplanon (Implant) 14:09:32 CDT CPT-OV Office Visit 14:09:32 CDT CPT-79684 UA w micro - LAB USE ONLY 16:21:13 CDT CPT-39687 Wet Mount - LAB USE ONLY 16:21:13 CDT CPT-05834 First Vx - Ix admin for Medicare patients 14:37:47 CDT CPT-68170 Fluzone Preservative Free Intramuscular Suspension 14:37 :47 CDT CPT-17985 Abx/Therapy Injection 13:54:22 CDT CPT-97855 Abx/Therapy Injection 08:47:09 CDT CPT-33615 Abx/Therapy Injection 13:29:56 CDT CPT-24235 Abx/Therapy Injection 08:36:16 CDT CPT-94402 Wet Mount - LAB USE ONLY 17:44:58 CDT CPT-89739 UA w micro - LAB USE ONLY 17:44:58 CDT CPT-22641 CMP - LAB USE ONLY 17:44:58 CDT CPT-55081 Venipuncture Draw Fee 17:44:58 CDT CPT-46348 Cervical Min 4V - XRAY USE ONLY 09:01:40 CDT CPT-87347 Chest 2V Frontal and Lat - XRAY USE ONLY 11:06:31 CDT CPT-07080 EKG Trac and Interp - XRAY USE ONLY 11:31:43 CDT 08/26 CPT-J3420 Vitamin B12 1000mcg (Cyanocobalamin) 08:10:26 [facility] 04/12 CPT-47171 Abx/Therapy Injection 08:10:26 [facility] CPT-G0438 Initial Annual Wellness Exam 19:01:01 [facility] [employer] [facility] CPT-J3420 Vitamin B12 1000mcg (Cyanocobalamin) 16:57:46 CDT 08/14 CPT-06359 Recombivax HB Injection Suspension 5 MCG/0.5ML 08:37:50 [facility] CPT-51515 Immunization Single Admin 08:37:50 [facility] CPT-J3420 Vitamin B12 1000mcg (Cyanocobalamin) 08:32:16 [facility] 03/11 CPT-91951 Abx/Therapy Injection 08:32:16 [facility] CPT-94921 Chest 2V Frontal and Lat 11:46:38 [facility] CPT-73076 Venipuncture Draw Fee 09:12:45 [facility] CPT-J3420 Vitamin B12 1000mcg (Cyanocobalamin) 08:50:15 [facility] 02/08 CPT-74582 Abx/Therapy Injection 08:50:15 [facility] CPT-Cryo Cryotherapy 10:19:35 [facility] CPT-000 Give Appropriate Flu Vaccine 09:22:16 CDT CPT-J3420 Vitamin B12 1000mcg (Cyanocobalamin) 19:08:57 CDT 01/11 CPT-38764 Abx/Therapy Injection 19:08:57 CDT CPT-J3420 Vitamin B12 1000mcg (Cyanocobalamin) 08:19:08 CDT 12/11 CPT-46211 Abx/Therapy Injection 08:19:08 CDT CPT-J3420 Vitamin B12 1000mcg (Cyanocobalamin) 14:48:00 CDT 11/09 CPT-31252 Abx/Therapy Injection 14:47:59 CDT CPT-J3420 Vitamin B12 1000mcg (Cyanocobalamin) 08:34:04 CDT 10/09 CPT-62768 Abx/Therapy Injection 08:34:04 CDT CPT-J3420 Vitamin B12 1000mcg (Cyanocobalamin) 09:18:52 CDT 09/11 CPT-76011 Abx/Therapy Injection 09:18:52 CDT CPT-J3420 Vitamin B12 1000mcg (Cyanocobalamin) 08:35:44 CDT 09/04 CPT-66003 Abx/Therapy Injection 08:35:44 CDT CPT-88887 Immunization Single Admin 11:07:16 CDT CPT-87024 Hepatitis B adult IM 11:07:16 CDT CPT-J3420 Vitamin B12 1000mcg (Cyanocobalamin) 11:00:49 CDT 08/28 CPT-J1040 Depo Medrol 80 mg (Methyl Prednisolone Acetate) 11:00: 49 CDT CPT-02116 Abx/Therapy Injection 11:00:49 CDT CPT-J1040 Depo Medrol 80 mg (Methyl Prednisolone Acetate) 09:16: 23 CDT CPT-J3420 Vitamin B12 1000mcg (Cyanocobalamin) 08:27:05 CDT 08/20 CPT-79422 Abx/Therapy Injection 08:27:05 CDT CPT-34833 Recombivax HB Injection Suspension 5 MCG/0.5ML 10:00:41 CDT CPT-81834 Administration single or combination vaccine inc oral 10 :00:41 CDT CPT-14433 Sono transvag pelvis non OB uterus ovaries cervix 16:36: 57 CDT CPT-49462 LS spine comp w obliq 09:50:55 [facility] CPT-80571 Abd compl w upright 09:50:55 [facility] CPT-J1100 Decadron 4mg (Dexamethasone) 15:51:24 [facility] CPT-J1030 Depo Medrol 40 mg (Methyl Prednisolone Acetate) 15:51: 24 [facility] CPT-43757 Abx/Therapy Injection 15:51:24 [facility] CPT-J1100 Decadron 4mg (Dexamethasone) 15:26:33 [facility] CPT-J1030 Depo Medrol 40 mg (Methyl Prednisolone Acetate) 15:26: 33 [facility] [facility] CPT-31828 Sono retroperitoneal complete kidneys and bladder 17:15: 30 CDT CPT-95584 Abd compl w upright 16:09:25 CDT CPT-J1100 Decadron 8mg (Dexamethasone) 17:07:57 CDT CPT-77210 Abx/Therapy Injection 17:07:57 CDT CPT-J1100 Decadron 8mg (Dexamethasone) 16:55:24 CDT CPT-58017 Chest 2V Frontal and Lat 16:32:44 CDT
--- OUTSIDE RECORDS SUMMARY | 2016-11-04 12:29 | XMS REPORT | Clinical Summary ---
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 is not sure of the dose.) DICLOFENAC POTASSIUM TABS 38766258671 Active Ahmet Carbajal MD Active MIRALAX PACK 1 po qd PRN Constipation POLYETHYLENE GLYCOL 3350 09536491854 No Longer Active Ahmet Carbajal MD Active MINIPRESS 2 MG CAPS 4 cap po at night PRAZOSIN HCL 87814262695 No Longer Active Ahmet Carbajal MD Active PIROXICAM 20 MG CAPS 1 cap po qd PRN Pain PIROXICAM 74228971658 No Longer Active Ahmet Carbajal MD Active TRAMADOL HCL 50 MG TABS 1-2 po TID PRN Pain TRAMADOL HCL 63242191681 No Longer Active Ahmet Carbajal MD Active METOPROLOL TARTRATE 50 MG TAB 1 po bid METOPROLOL TARTRATE 41401992844 No Longer Active Ahmet Carbajal MD Active ABILIFY 15 MG ORAL TABS 1 tab daily ARIPIPRAZOLE 33975486389 No Longer Active Ahmet Carbajal MD Active PROZAC 20 MG ORAL CAPS 1 tab daily FLUOXETINE HCL 88352127569 No Longer Active Ahmet Carbajal MD Active AMBIEN 5 MG ORAL TABS 1 tab at bedtime ZOLPIDEM TARTRATE 57934674465 No Longer Active Ahmet Carbajal MD Active PREDNISONE 20 MG TAB 2 tabs daily for 4 days, 1 tab daily for 4 days, 1/2 tab daily for 4 days PREDNISONE 60303899417 No Longer Active Ahmet Carbajal MD Active KEFLEX 500 MG CAP 1 po TID x 10 days CEPHALEXIN 49305992504 No Longer Active Vishal Hui MD Active ABILIFY MAINTENA 400 MG IM SUSR Injection once per month ARIPIPRAZOLE 38494066922 Active Juliet Kimbrough APRN Active IMITREX 50 MG ORAL TABS 1/2 tab every 6 hours prn SUMATRIPTAN SUCCINATE 50039683902 Active 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 APRN Active TOPAMAX 50 MG ORAL TABS 1 tab twice daily TOPIRAMATE 22912937890 Active Vishal Hui MD Active SAPHRIS 5 MG SUBL 1 po bid ASENAPINE MALEATE 17374464390 No Longer Active 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 APRN Active LATUDA 80 MG TABS Take one by mouth daily LURASIDONE HCL 33367306590 No Longer Active Luigi Martínez APRN Active AMLODIPINE BESYLATE 5 MG TABS 1 tablet by mouth daily AMLODIPINE BESYLATE 72290818292 No Longer Active Luigi Martínez APRN Active AMITRIPTYLINE HCL 100 MG TAB one at hs AMITRIPTYLINE HCL 29105846130 No Longer Active Vishal Hui MD Active TRAZODONE HCL 100 MG TAB take 1 at bedtime TRAZODONE HCL 59818840369 No Longer Active Vishal Hui MD Active VYVANSE 40 MG CAPS 1 daily, LISDEXAMFETAMINE DIMESYLATE 37054531837 No Longer Active Vishal Hui MD Active IBUPROFEN 600 MG TAB 1 po TID PRN IBUPROFEN 76236100012 No Longer Active Vishal Hui MD Active PROZAC 20 MG CAP Take one by mouth daily FLUOXETINE HCL 39922918207 No Longer Active Vihsal Hui MD Active ZOFRAN 4 MG TABS 1 po q6hr PRN Nausea ONDANSETRON HCL Active Vishal Hui MD Active BACTRIM DS 800-160 MG TABS 1 pill by mouth twice daily SULFAMETHOXAZOLE-TRIMETHOPRIM 88146447625 No Longer Active Sahara Rodriguez MD PhD Active DIFLUCAN 150 MG TAB 1 tablet by mouth daily FLUCONAZOLE 79221586549 No Longer Active Vishal Hui MD Active TIZANIDINE HCL 4 MG TABS 1 po q6hr PRN Muscle Spasm/Back Pain TIZANIDINE HCL 46784715070 Active Luigi Martínez APRN Active CLINDAMYCIN HCL 150 MG CAPS 1 four times a day CLINDAMYCIN HCL 12125656684 No Longer Active Neeraj Collins MD Active KEFLEX 500 MG ORAL CAPS 1 cap QID by mouth CEPHALEXIN 08919341689 No Longer Active Neeraj Collins MD Active DIFLUCAN 150 MG TABS 1 pill every other day x 2 doses FLUCONAZOLE 72619801414 No Longer Active Sahara Rodriguez MD PhD Active MELATONIN 3 MG CAPS 2 po q hs MELATONIN 55350212308 No Longer Active Sahara Rodriguez MD PhD Active MULTIVITAMINS CAPS Take one by mouth daily MULTIPLE VITAMIN 41091471812 No Longer Active Sahara Rodriguez MD PhD Active BACTRIM DS 800-160 MG TAB 1 tab by mouth twice daily TRIMETHOPRIM-SULFAMETHOXAZOLE 62109569806 No Longer Active Sahara Rodriguez MD PhD Active [facility] PROBIOTIC ORAL CHEW 2 daily po PROBIOTIC PRODUCT 34276291266 No Longer Active Sahara Rodriguez MD PhD Active BACTRIM DS 800-160 MG TABS 1 po BID x 7 days SULFAMETHOXAZOLE-TRIMETHOPRIM 89284066461 No Longer Active Vishal Hui MD Active CHANTIX STARTING MONTH EARNEST 0.5 MG X 11 & 1 MG X 42 TABS 0.5mg daily for 3 days , then 0.5mg BID for 4 days, then 1mg BID VARENICLINE TARTRATE 40215167842 No Longer Active TAMARA Gray Active VERAPAMIL HCL CR 120 MG TAB CR 1 po bid VERAPAMIL HCL 32828848376 No Longer Active Vishal Hui MD Active METOPROLOL SUCCINATE 50 MG TB24 1 tablet by mouth daily METOPROLOL SUCCINATE 23079462607 No Longer Active Vishal Hui MD Active SAPHRIS 10 MG SUBL 1 tab po bid ASENAPINE MALEATE 17214797223 No Longer Active Vishal Hui MD Active LISINOPRIL 20 MG TABS 1 tab po qd LISINOPRIL 05841359616 No Longer Active Vishal Hui MD Active BENADRYL 25 MG CAP 2 po tid prn anxiety DIPHENHYDRAMINE HCL 13160909672 Active Vishal Hui MD Active LATUDA 20 MG TABS Take one by mouth daily LURASIDONE HCL 62969270882 No Longer Active Vishal Hui MD Active TRAZODONE HCL 50 MG TABS 1/2 tab po qd prn for anxiety TRAZODONE HCL 79894025692 No Longer Active Vishal Hui MD Active OMEPRAZOLE 20 MG TBEC 1 po q a.m. 30min prior to first food intake OMEPRAZOLE 79450019000 Active Vishal Hui MD Active RANITIDINE HCL 150 MG CAPS 1 twice a day RANITIDINE HCL 09988847010 Active Vishal Hui MD Active LINZESS 290 MCG CAPS Take one by mouth daily LINACLOTIDE 29241542403 No Longer Active Vishal Hui MD Active SAPHRIS 5 MG SUBL 1 tab po qd ASENAPINE MALEATE 56907488046 No Longer Active Vishal Hui MD Active ZALEPLON 10 MG CAPS 1 cap po every other night ZALEPLON 01779546021 No Longer Active Vishal Hui MD Active LYRICA 50 MG CAPS 1 tab po TID PREGABALIN 69308275949 No Longer Active Vishal Hui MD Active LORATADINE 10 MG TABS 1 tab po qd LORATADINE 13078352461 No Longer Active Vishal Hui MD Active VERAPAMIL HCL ER 180 MG CR-TABS 1 tab po bid VERAPAMIL HCL 18843315731 No Longer Active Vishal Hui MD Active MIRALAX POWD 1 capfull once daily POLYETHYLENE GLYCOL 3350 04219330856 No Longer Active Vishal Hui MD Active PREDNISONE 20 MG TABS 1 tab po qd PREDNISONE 03273577236 No Longer Active Renzo Thornton DO Active LEVOFLOXACIN 500 MG TABS 1 tab po qd LEVOFLOXACIN 75089459521 No Longer Active Renzo Thornton DO Active BUSPIRONE HCL 15 MG TABS 1 tab po TID BUSPIRONE HCL 33469788504 No Longer Active Renzo Thornton DO Active BENZTROPINE MESYLATE 1 MG TABS 1 tab po qd BENZTROPINE MESYLATE 33270468663 No Longer Active Renzo Thornton DO Active ATENOLOL 25 MG TABS 1 tab po qd ATENOLOL 09187045813 No Longer Active Renzo Thornton DO Active ESCITALOPRAM OXALATE 20 MG TABS 1 tab po qd ESCITALOPRAM OXALATE 20541366499 No Longer Active Renzo Thornton DO Active ADVAIR DISKUS 250-50 MCG/DOSE AEPB 1 puff BID FLUTICASONE-SALMETEROL 27988432806 No Longer Active Renzo Thornton DO Active PREDNISONE 20 MG TAB 2 tabs daily for 3 days, 1 tab daily for 3 days, 1/2 tab daily for 2 days PREDNISONE 42539820440 No Longer Active Vishal Hui MD Active CEFDINIR 300 MG CAPS by mouth twice a day CEFDINIR 04878097026 No Longer Active Vishal Hui MD Active LANSOPRAZOLE 30 MG CPDR 1 cap po qd LANSOPRAZOLE 51060492919 No Longer Active Vishal Hui MD Active BACLOFEN 20 MG TABS 1 tab po tid BACLOFEN 29406675201 No Longer Active Vishal Hui MD Active ADVAIR DISKUS 250-50 MCG/DOSE AEPB 1 puff BID ADVAIR DISKUS 250-50 MCG/DOSE AEPB FLUTICASONE-SALMETEROL Inactive ESCITALOPRAM OXALATE 20 MG TABS 1 tab po qd ESCITALOPRAM OXALATE 20 MG TABS 732806 ESCITALOPRAM OXALATE Inactive ATENOLOL 25 MG TABS 1 tab po qd ATENOLOL 25 MG TABS 875188 ATENOLOL Inactive BENZTROPINE MESYLATE 1 MG TABS 1 tab po qd BENZTROPINE MESYLATE 1 MG TABS 600989 BENZTROPINE MESYLATE Inactive BUSPIRONE HCL 15 MG TABS 1 tab po TID BUSPIRONE HCL 15 MG TABS 029224 BUSPIRONE HCL Inactive LEVOFLOXACIN 500 MG TABS 1 tab po qd LEVOFLOXACIN 500 MG TABS 707496 LEVOFLOXACIN Inactive PREDNISONE 20 MG TABS 1 tab po qd PREDNISONE 20 MG TABS 938014 PREDNISONE Inactive MIRALAX POWD 1 capfull once daily MIRALAX POWD 680192 POLYETHYLENE GLYCOL 3350 Inactive VERAPAMIL HCL ER 180 MG CR-TABS 1 tab po bid VERAPAMIL HCL ER 180 MG CR-TABS VERAPAMIL HCL Inactive LORATADINE 10 MG TABS 1 tab po qd LORATADINE 10 MG TABS 605769 LORATADINE Inactive LYRICA 50 MG CAPS 1 tab po TID LYRICA 50 MG CAPS PREGABALIN Inactive ZALEPLON 10 MG CAPS 1 cap po every other night ZALEPLON 10 MG CAPS 180931 ZALEPLON Inactive SAPHRIS 5 MG SUBL 1 tab po qd SAPHRIS 5 MG SUBL ASENAPINE MALEATE Inactive TRAZODONE HCL 50 MG TABS 1/2 tab po qd prn for anxiety TRAZODONE HCL 50 MG TABS 275314 TRAZODONE HCL Inactive LATUDA 20 MG TABS Take one by mouth daily LATUDA 20 MG TABS LURASIDONE HCL Inactive LISINOPRIL 20 MG TABS 1 tab po qd LISINOPRIL 20 MG TABS 389444 LISINOPRIL Inactive SAPHRIS 10 MG SUBL 1 [...] twice daily BACTRIM DS 800-160 MG TAB 465448 TRIMETHOPRIM-SULFAMETHOXAZOLE Inactive MULTIVITAMINS CAPS Take one by mouth daily MULTIVITAMINS CAPS MULTIPLE VITAMIN Inactive MELATONIN 3 MG CAPS 2 po q hs MELATONIN 3 MG CAPS 506529 MELATONIN Inactive KEFLEX 500 MG ORAL CAPS 1 cap QID by mouth KEFLEX 500 MG ORAL CAPS 467209 CEPHALEXIN Inactive CLINDAMYCIN HCL 150 MG CAPS 1 four times a day CLINDAMYCIN HCL 150 MG CAPS 442785 CLINDAMYCIN HCL Inactive DIFLUCAN 150 MG TAB 1 tablet by mouth daily DIFLUCAN 150 MG TAB 617316 FLUCONAZOLE Inactive PROZAC 20 MG CAP Take one by mouth daily PROZAC 20 MG CAP 433873 FLUOXETINE HCL Inactive IBUPROFEN 600 MG TAB 1 po TID PRN IBUPROFEN 600 MG TAB 169225 IBUPROFEN Inactive VYVANSE 40 MG CAPS 1 daily, VYVANSE 40 MG CAPS LISDEXAMFETAMINE DIMESYLATE Inactive TRAZODONE HCL 100 MG TAB take 1 at bedtime TRAZODONE HCL 100 MG TAB 625405 TRAZODONE HCL Inactive AMITRIPTYLINE HCL 100 MG TAB one at hs AMITRIPTYLINE HCL 100 MG TAB 103799 AMITRIPTYLINE HCL Inactive AMLODIPINE BESYLATE 5 MG TABS 1 tablet by mouth daily AMLODIPINE BESYLATE 5 MG TABS 819084 AMLODIPINE BESYLATE Inactive LATUDA 80 MG TABS Take one by mouth daily LATUDA 80 MG TABS LURASIDONE HCL Inactive SAPHRIS 5 MG SUBL 1 po bid SAPHRIS 5 MG SUBL ASENAPINE MALEATE Inactive PREDNISONE 20 MG TAB 2 tabs daily for 4 days, 1 tab daily for 4 days, 1/2 tab daily for 4 days PREDNISONE 20 MG TAB 478373 PREDNISONE Inactive AMBIEN 5 MG ORAL TABS 1 tab at bedtime AMBIEN 5 MG ORAL TABS 961612 ZOLPIDEM TARTRATE Inactive PROZAC 20 MG ORAL CAPS 1 tab daily PROZAC 20 MG ORAL CAPS 783590 FLUOXETINE HCL Inactive ABILIFY 15 MG ORAL TABS 1 tab daily ABILIFY 15 MG ORAL TABS 932703 ARIPIPRAZOLE Inactive METOPROLOL TARTRATE 50 MG TAB 1 po bid METOPROLOL TARTRATE 50 MG TAB 318905 METOPROLOL TARTRATE Inactive TRAMADOL HCL 50 MG TABS 1-2 po TID PRN Pain TRAMADOL HCL 50 MG TABS 641540 TRAMADOL HCL Inactive PIROXICAM 20 MG CAPS 1 cap po qd PRN Pain PIROXICAM 20 MG CAPS 506719 PIROXICAM Inactive MINIPRESS 2 MG CAPS 4 cap po at night MINIPRESS 2 MG CAPS 492285 PRAZOSIN HCL Inactive MIRALAX PACK 1 po qd PRN Constipation MIRALAX PACK 681814 POLYETHYLENE GLYCOL 3350 Inactive CEFDINIR 300 MG CAPS by mouth twice a day CEFDINIR 300 MG CAPS 353658 CEFDINIR Inactive PREDNISONE 20 MG TAB 2 tabs daily for 3 days, 1 tab daily for 3 days, 1/2 tab daily for 2 days PREDNISONE 20 MG TAB 491004 PREDNISONE Inactive BACTRIM DS 800-160 MG TABS 1 po BID x 7 days BACTRIM DS 800-160 MG TABS 19820521 SULFAMETHOXAZOLE-TRIMETHOPRIM Inactive DIFLUCAN 150 MG TABS 1 pill every other day x 2 doses DIFLUCAN 150 MG TABS 956867 FLUCONAZOLE Inactive BACTRIM DS 800-160 MG TABS 1 pill by mouth twice daily BACTRIM DS 800-160 MG TABS 19820521 SULFAMETHOXAZOLE-TRIMETHOPRIM Inactive KEFLEX 500 MG CAP 1 po TID x 10 days KEFLEX 500 MG CAP 169087 CEPHALEXIN Inactive Advance Directives Directive Description Start Date DISCUSSED WITH PATIENT -- NO DECISION MADE Vital Signs Date Name Value Unit Range Description blood pressure, diastolic - 8462-4 77 mm[Hg] [...] % 11.6-14.8 platelet count 394 10^3/MM^3 10*3/mm3 464-175 2859/01/11 leukocyte count, blood 13.8 10^3/MM^3 10*3/mm3 4.6-10.2 [...] Panel - Chemistry sodium, serum 139 mmol/L 973-093 1037/12/03 carbon dioxide, venous blood 28.5 mmol/L 21.0-32.0 [...] 5.5 % 4.3-6.0 cholesterol, serum 159 mg/dL 564-376 5750/12/03 triglyceride, serum, fasting 118 mg/dL 30-200 HDL [...] Panel - Chemistry sodium, serum 139 mmol/L 850-787 4338/12/22 carbon dioxide, venous blood 26.8 mmol/L 21.0-32.0 potassium, serum 4.2 mmol/L 3.5-5.2 chloride, serum 103 mmol/L 98-107 blood glucose 115 mg/dL 65-110 urea nitrogen, blood 20 mg/dL 7-18 creatinine, serum 0.90 mg/dL 0.55-1.30 alanine aminotransferase (SGPT), serum 38 U/L aspartate aminotransferase (SGOT), serum 19 U/L 15-37 calcium, serum 8.6 mg/dL 8.5-10.1 bilirubin, serum, total 0.30 mg/dL 0.00-1.00 sodium, serum 139 mmol/L 412-314 6645/01/11 carbon dioxide, venous blood 26.6 mmol/L 21.0-32.0 [...] Rate - Chemistry sodium, serum 139 mmol/L 830-563 1180/12/11 carbon dioxide, venous blood 25.4 mmol/L 21.0-32.0 [...] Negative Negative nitrite, urine, semiquantitative Negative Negative urobilinogen, [...] 5.0-8.5 Encounters Code Encounter Date Provider Facility CPT-02095 Level 3 Est. Patient 15:22:01 CDT Ahmet Carbajal MD [facility] CPT-26802 Level 4 Est. Patient 09:00:51 ADMINISTRATIVE SERVICES OFFICER Vishal Hui MD [facility] CPT-72114 Level 3 Est. Patient 11:37:33 ADMINISTRATIVE SERVICES OFFICER Vishal Hui MD [facility] CPT-75943 Level 3 Est. Patient 08:41:09 ADMINISTRATIVE SERVICES OFFICER Vishal Hui MD [facility] CPT-15753 Level 4 Est. Patient 10:19:35 ADMINISTRATIVE SERVICES OFFICER Vishal Hui MD [facility] CPT-93779 Level 3 Est. Patient 13:35:45 CDT Vishal Hui MD [facility] CPT-64791 Level 4 Est. Patient 10:08:37 CDT Vishal Hui MD [facility] CPT-18826 Level 3 Est. Patient 11:22:10 CDT Vishal Hui MD [facility] CPT-80681 Level 3 Est. Patient 11:03:32 CDT Sahara Rodriguez MD [facility] CPT-15171 Level 3 Est. Patient 09:41:35 CDT Vishal Hui MD [facility] CPT-40840 Level 3 Est. Patient 12:00:41 CDT Neeraj Collins MD [facility] CPT-07504 Level 3 Est. Patient 09:16:24 CDT Vishal Hui MD [facility] CPT-63899 Level 4 Est. Patient 13:59:09 CDT Neeraj Collins MD [facility] CPT-77602 Level 3 Est. Patient 15:19:43 CDT Renzo Thornton DO [facility] CPT-28962 Level 3 Est. Patient 18:10:26 CDT Sahara Rodriguez MD [facility] CPT-88847 Level 3 Est. Patient 14:49:50 CDT Vishal Hui MD [facility] CPT-19513 Level 4 Est. Patient 18:41:46 CDT Neeraj Collins MD [facility] CPT-39399 Level 4 Est. Patient 09:18:38 ADMINISTRATIVE SERVICES OFFICER Vishal Hui MD [facility] CPT-93041 Level 3 Est. Patient 14:43:55 ADMINISTRATIVE SERVICES OFFICER Vishal Hui MD [facility] CPT-82829 Level 3 Est. Patient 15:26:33 ADMINISTRATIVE SERVICES OFFICER Sahara Rodriguez MD PhD [facility] CPT-46285 Level 3 Est. Patient 10:32:14 ADMINISTRATIVE SERVICES OFFICER Vishal Hui MD [facility] CPT-19708 Level 3 Est. Patient 15:12:52 ADMINISTRATIVE SERVICES OFFICER Vishal Hui MD [facility] CPT-66420 Level 4 Est. Patient 09:19:27 CDT Vishal Hui MD [facility] CPT-85452 Level 3 Est. Patient 15:53:00 CDT Renzo Thornton [facility] CPT-06125 Level 3 Est. Patient 15:50:30 CDT Renzo Thornton [facility] CPT-64689 Level 3 Est. Patient 16:55:24 CDT Vishal Hui MD [facility] Procedures Code Procedure Name Date Entry Date Standard Description CPT-J3420 Vitamin B12 1000mcg (Cyanocobalamin) 08:10:26 ADMINISTRATIVE SERVICES OFFICER 04/12 CPT-61019 Abx/Therapy Injection 08:10:26 ADMINISTRATIVE SERVICES OFFICER CPT-G0438 Initial Annual Wellness Exam 19:01:01 ADMINISTRATIVE SERVICES OFFICER CPT-J3420 Vitamin B12 1000mcg (Cyanocobalamin) 16:57:46 CDT 08/14 CPT-80084 Recombivax HB Injection Suspension 5 MCG/0.5ML 08:37:50 ADMINISTRATIVE SERVICES OFFICER CPT-65405 Immunization Single Admin 08:37:50 ADMINISTRATIVE SERVICES OFFICER CPT-J3420 Vitamin B12 1000mcg (Cyanocobalamin) 08:32:16 ADMINISTRATIVE SERVICES OFFICER 03/11 CPT-80829 Abx/Therapy Injection 08:32:16 ADMINISTRATIVE SERVICES OFFICER CPT-36732 Chest 2V Frontal and Lat 11:46:38 ADMINISTRATIVE SERVICES OFFICER CPT-71751 Venipuncture Draw Fee 09:12:45 ADMINISTRATIVE SERVICES OFFICER CPT-J3420 Vitamin B12 1000mcg (Cyanocobalamin) 08:50:15 ADMINISTRATIVE SERVICES OFFICER 02/08 CPT-81548 Abx/Therapy Injection 08:50:15 ADMINISTRATIVE SERVICES OFFICER CPT-Cryo Cryotherapy 10:19:35 ADMINISTRATIVE SERVICES OFFICER CPT-000 Give Appropriate Flu Vaccine 09:22:16 CDT CPT-J3420 Vitamin B12 1000mcg (Cyanocobalamin) 19:08:57 CDT 01/11 CPT-56704 Abx/Therapy Injection 19:08:57 CDT CPT-J3420 Vitamin B12 1000mcg (Cyanocobalamin) 08:19:08 CDT 12/11 CPT-83628 Abx/Therapy Injection 08:19:08 CDT CPT-J3420 Vitamin B12 1000mcg (Cyanocobalamin) 14:48:00 CDT 11/09 CPT-91758 Abx/Therapy Injection 14:47:59 CDT CPT-J3420 Vitamin B12 1000mcg (Cyanocobalamin) 08:34:04 CDT 10/09 CPT-24133 Abx/Therapy Injection 08:34:04 CDT CPT-J3420 Vitamin B12 1000mcg (Cyanocobalamin) 09:18:52 CDT 09/11 CPT-13567 Abx/Therapy Injection 09:18:52 CDT CPT-J3420 Vitamin B12 1000mcg (Cyanocobalamin) 08:35:44 CDT 09/04 CPT-96105 Abx/Therapy Injection 08:35:44 CDT CPT-25910 Immunization Single Admin 11:07:16 CDT CPT-85499 Hepatitis B adult IM 11:07:16 CDT CPT-J3420 Vitamin B12 1000mcg (Cyanocobalamin) 11:00:49 CDT 08/28 CPT-J1040 Depo Medrol 80 mg (Methyl Prednisolone Acetate) 11:00: 49 CDT CPT-43654 Abx/Therapy Injection 11:00:49 CDT CPT-J1040 Depo Medrol 80 mg (Methyl Prednisolone Acetate) 09:16: 23 CDT CPT-J3420 Vitamin B12 1000mcg (Cyanocobalamin) 08:27:05 CDT 08/20 CPT-97689 Abx/Therapy Injection 08:27:05 CDT CPT-20562 Recombivax HB Injection Suspension 5 MCG/0.5ML 10:00:41 CDT CPT-99765 Administration single or combination vaccine inc oral 10 :00:41 CDT CPT-14409 Sono transvag pelvis non OB uterus ovaries cervix 16:36: 57 CDT CPT-40191 LS spine comp w obliq 09:50:55 ADMINISTRATIVE SERVICES OFFICER CPT-33483 Abd compl w upright 09:50:55 ADMINISTRATIVE SERVICES OFFICER CPT-J1100 Decadron 4mg (Dexamethasone) 15:51:24 ADMINISTRATIVE SERVICES OFFICER CPT-J1030 Depo Medrol 40 mg (Methyl Prednisolone Acetate) 15:51: 24 ADMINISTRATIVE SERVICES OFFICER CPT-44638 Abx/Therapy Injection 15:51:24 ADMINISTRATIVE SERVICES OFFICER CPT-J1100 Decadron 4mg (Dexamethasone) 15:26:33 ADMINISTRATIVE SERVICES OFFICER CPT-J1030 Depo Medrol 40 mg (Methyl Prednisolone Acetate) 15:26: 33 ADMINISTRATIVE SERVICES OFFICER CPT-66374 Sono retroperitoneal complete kidneys and bladder 17:15: 30 CDT CPT-87023 Abd compl w upright 16:09:25 CDT CPT-J1100 Decadron 8mg (Dexamethasone) 17:07:57 CDT CPT-00201 Abx/Therapy Injection 17:07:57 CDT CPT-J1100 Decadron 8mg (Dexamethasone) 16:55:24 CDT CPT-74506 Chest 2V Frontal and Lat 16:32:44 CDT
--- OUTSIDE RECORDS SUMMARY | 2016-11-04 12:30 | XMS REPORT | Clinical Summary ---
Author Author Admin, [facility] Organization [employer] Address Unknown Phone Unavailable Allergies, Adverse Reactions, [...] abnormal blood chemistry Boils, recurrent 680.9 Active Vishal Hui MD Carbuncle and furuncle of unspecified site Pneumonia, [...] 1 pill by mouth twice daily SULFAMETHOXAZOLE-TRIMETHOPRIM 53888061450 No Longer Active Sahara Rodriguez MD PhD Active DIFLUCAN 150 MG TAB 1 tablet by mouth daily FLUCONAZOLE 29038096613 No Longer Active Vishal Hui MD Active TIZANIDINE HCL 4 MG TABS 1 po q6hr PRN Muscle Spasm/Back Pain TIZANIDINE HCL 55029674863 Active Vishal Hui MD Active CLINDAMYCIN HCL 150 MG CAPS 1 four times a day CLINDAMYCIN HCL 04024807616 No Longer Active Neeraj Collins MD Active KEFLEX 500 MG ORAL CAPS 1 cap QID by mouth CEPHALEXIN 68056345190 No Longer Active Neeraj Collins MD Active DIFLUCAN 150 MG TABS 1 pill every other day x 2 doses FLUCONAZOLE 67120882507 No Longer Active Sahara Rodriguez MD PhD Active MELATONIN 3 MG CAPS 2 po q hs MELATONIN 60073006140 No Longer Active Sahara Rodriguez MD PhD Active MULTIVITAMINS CAPS Take one by mouth daily MULTIPLE VITAMIN 78199233660 No Longer Active Sahara Rodriguez MD PhD Active BACTRIM DS 800-160 MG TAB 1 tab by mouth twice daily TRIMETHOPRIM-SULFAMETHOXAZOLE 93929058175 No Longer Active Sahara Rodriguez MD PhD Active [facility] PROBIOTIC ORAL CHEW 2 daily po PROBIOTIC PRODUCT 02438009561 No Longer Active Sahara Rodriguez MD PhD Active IBUPROFEN 600 MG TAB 1 po TID PRN IBUPROFEN 01673414637 Active Luigi Martínez MACHINE LACER Active BACTRIM DS 800-160 MG TABS 1 po BID x 7 days SULFAMETHOXAZOLE-TRIMETHOPRIM 80488160901 No Longer Active Vishal Hui MD Active CHANTIX STARTING MONTH EARNEST 0.5 MG X 11 & 1 MG X 42 TABS 0.5mg daily for 3 days , then 0.5mg BID for 4 days, then 1mg BID VARENICLINE TARTRATE 10457475573 No Longer Active TAMARA Gray Active METOPROLOL TARTRATE 50 MG TAB 1 po bid METOPROLOL TARTRATE 49091724008 Active Vishal Hui MD Active TRAZODONE HCL 100 MG TAB take 1 at bedtime TRAZODONE HCL 66915259704 Active Vishal Hui MD Active AMLODIPINE BESYLATE 5 MG TABS 1 tablet by mouth daily AMLODIPINE BESYLATE 48001183957 Active Vishal Hui MD Active VERAPAMIL HCL CR 120 MG TAB CR 1 po bid VERAPAMIL HCL 26275069215 No Longer Active Vishal Hui MD Active METOPROLOL SUCCINATE 50 MG TB24 1 tablet by mouth daily METOPROLOL SUCCINATE 48828489772 No Longer Active Vishal Hui MD Active TRAMADOL HCL 50 MG TABS 1-2 po TID PRN Pain TRAMADOL HCL 94112954927 Active Vishal Hui MD Active SAPHRIS 5 MG SUBL 1 po bid ASENAPINE MALEATE 10126337720 Active Vishal Hui MD Active SAPHRIS 10 MG SUBL 1 tab po bid ASENAPINE MALEATE 62947593124 No Longer Active Vishal Hui MD Active LISINOPRIL 20 MG TABS 1 tab po qd LISINOPRIL 37969624055 No Longer Active Vishal Hui MD Active BENADRYL 25 MG CAP 2 po tid prn anxiety DIPHENHYDRAMINE HCL 12312305411 Active Vishal Hui MD Active LATUDA 80 MG TABS Take one by mouth daily LURASIDONE HCL 83489717640 Active Vishal Hui MD Active LATUDA 20 MG TABS Take one by mouth daily LURASIDONE HCL 40927067574 No Longer Active Vishal Hui MD Active TRAZODONE HCL 50 MG TABS 1/2 tab po qd prn for anxiety TRAZODONE HCL 89023535727 No Longer Active Vishal Hui MD Active PIROXICAM 20 MG CAPS 1 cap po qd PRN Pain PIROXICAM 58945445254 Active Vishal Hui MD Active OMEPRAZOLE 20 MG TBEC 1 po q a.m. 30min prior to first food intake OMEPRAZOLE 90659267392 Active Vishal Hui MD Active RANITIDINE HCL 150 MG CAPS 1 twice a day RANITIDINE HCL 43431057475 Active Vishal Hui MD Active PROZAC 20 MG CAP Take one by mouth daily FLUOXETINE HCL 81373274261 Active Vishal Hui MD Active LINZESS 290 MCG CAPS Take one by mouth daily LINACLOTIDE 22683413577 Active Vishal Hui MD Active SAPHRIS 5 MG SUBL 1 tab po qd ASENAPINE MALEATE 71418834603 No Longer Active Vishal Hui MD Active ZALEPLON 10 MG CAPS 1 cap po every other night ZALEPLON 12916344959 No Longer Active Vishal Hui MD Active LYRICA 50 MG CAPS 1 tab po TID PREGABALIN 05900503457 No Longer Active Vishal Hui MD Active LORATADINE 10 MG TABS 1 tab po qd LORATADINE 74367292689 No Longer Active Vishal Hui MD Active VERAPAMIL HCL ER 180 MG CR-TABS 1 tab po bid VERAPAMIL HCL 13869059643 No Longer Active Vishal Hui MD Active MIRALAX POWD 1 capfull once daily POLYETHYLENE GLYCOL 3350 17736431103 No Longer Active Vishal Hui MD Active PREDNISONE 20 MG TABS 1 tab po qd PREDNISONE 56153061410 No Longer Active Renzo Thornton DO Active LEVOFLOXACIN 500 MG TABS 1 tab po qd LEVOFLOXACIN 77744320330 No Longer Active Renzo Thornton DO Active BUSPIRONE HCL 15 MG TABS 1 tab po TID BUSPIRONE HCL 46187283654 No Longer Active Renzo Thornton DO Active BENZTROPINE MESYLATE 1 MG TABS 1 tab po qd BENZTROPINE MESYLATE 07410059511 No Longer Active Renzo Thornton DO Active ATENOLOL 25 MG TABS 1 tab po qd ATENOLOL 62237124732 No Longer Active Renzo Thornton DO Active ESCITALOPRAM OXALATE 20 MG TABS 1 tab po qd ESCITALOPRAM OXALATE 24450940906 No Longer Active Renzo Thornton DO Active ADVAIR DISKUS 250-50 MCG/DOSE AEPB 1 puff BID FLUTICASONE-SALMETEROL 20708220196 No Longer Active Renzo Thornton DO Active PREDNISONE 20 MG TAB 2 tabs daily for 3 days, 1 tab daily for 3 days, 1/2 tab daily for 2 days PREDNISONE 33051340065 No Longer Active Vishal Hui MD Active CEFDINIR 300 MG CAPS by mouth twice a day CEFDINIR 16846148809 No Longer Active Vishal Hui MD Active LANSOPRAZOLE 30 MG CPDR 1 cap po qd LANSOPRAZOLE 12166788328 No Longer Active Vishal Hui MD Active TOPAMAX 25 MG TABS 1 tab po bid TOPIRAMATE 88719218573 Active Vishal Hui MD Active MINIPRESS 2 MG CAPS 1 cap po at night PRAZOSIN HCL 29327938512 Active Vishal Hui MD Active BACLOFEN 20 MG TABS 1 tab po tid BACLOFEN 59590362199 No Longer Active Vishal Hui MD Active ADVAIR DISKUS 250-50 MCG/DOSE AEPB 1 puff BID ADVAIR DISKUS 250-50 MCG/DOSE AEPB FLUTICASONE-SALMETEROL Inactive ESCITALOPRAM OXALATE 20 MG TABS 1 tab po qd ESCITALOPRAM OXALATE 20 MG TABS 429522 ESCITALOPRAM OXALATE Inactive ATENOLOL 25 MG TABS 1 tab po qd ATENOLOL 25 MG TABS 438884 ATENOLOL Inactive BENZTROPINE MESYLATE 1 MG TABS 1 tab po qd BENZTROPINE MESYLATE 1 MG TABS 618485 BENZTROPINE MESYLATE Inactive BUSPIRONE HCL 15 MG TABS 1 tab po TID BUSPIRONE HCL 15 MG TABS 604033 BUSPIRONE HCL Inactive LEVOFLOXACIN 500 MG TABS 1 tab po qd LEVOFLOXACIN 500 MG TABS 594926 LEVOFLOXACIN Inactive PREDNISONE 20 MG TABS 1 tab po qd PREDNISONE 20 MG TABS 277947 PREDNISONE Inactive MIRALAX POWD 1 capfull once daily MIRALAX POWD 569757 POLYETHYLENE GLYCOL 3350 Inactive VERAPAMIL HCL ER 180 MG CR-TABS 1 tab po bid VERAPAMIL HCL ER 180 MG CR-TABS VERAPAMIL HCL Inactive LORATADINE 10 MG TABS 1 tab po qd LORATADINE 10 MG TABS 240396 LORATADINE Inactive LYRICA 50 MG CAPS 1 tab po TID LYRICA 50 MG CAPS PREGABALIN Inactive ZALEPLON 10 MG CAPS 1 cap po every other night ZALEPLON 10 MG CAPS 372837 ZALEPLON Inactive SAPHRIS 5 MG SUBL 1 tab po qd SAPHRIS 5 MG SUBL ASENAPINE MALEATE Inactive TRAZODONE HCL 50 MG TABS 1/2 tab po qd prn for anxiety TRAZODONE HCL 50 MG TABS 022757 TRAZODONE HCL Inactive LATUDA 20 MG TABS Take one by mouth daily LATUDA 20 MG TABS LURASIDONE HCL Inactive LISINOPRIL 20 MG TABS 1 tab po qd LISINOPRIL 20 MG TABS 402015 LISINOPRIL Inactive SAPHRIS 10 MG SUBL 1 [...] po q hs MELATONIN 3 MG CAPS 566568 MELATONIN Inactive KEFLEX 500 MG ORAL CAPS 1 cap QID by mouth KEFLEX 500 MG ORAL CAPS 871491 CEPHALEXIN Inactive CLINDAMYCIN HCL 150 MG CAPS 1 four times a day CLINDAMYCIN HCL 150 MG CAPS 048737 CLINDAMYCIN HCL Inactive DIFLUCAN 150 MG TAB 1 tablet by mouth daily DIFLUCAN 150 MG TAB 19751126 FLUCONAZOLE Inactive CEFDINIR 300 MG CAPS by mouth twice a day CEFDINIR 300 MG CAPS 009530 CEFDINIR Inactive PREDNISONE 20 MG TAB 2 tabs daily for 3 days, 1 tab daily for 3 days, 1/2 tab daily for 2 days PREDNISONE 20 MG TAB 202128 PREDNISONE Inactive BACTRIM DS 800-160 MG TABS 1 po BID x 7 days BACTRIM DS 800-160 MG TABS SULFAMETHOXAZOLE-TRIMETHOPRIM Inactive DIFLUCAN 150 MG TABS 1 pill every other day x 2 doses DIFLUCAN 150 MG TABS 761035 FLUCONAZOLE Inactive BACTRIM DS 800-160 MG TABS 1 pill by mouth twice daily BACTRIM DS 800-160 MG TABS SULFAMETHOXAZOLE-TRIMETHOPRIM Inactive Vital Signs Date Name Value Unit Range Description blood pressure, diastolic - 8462-4 75 mm[Hg] [...] mmol/L Chart Maintenance: outside labs entered on [employer] - Hematology platelet count 364 10*3/mm3 hemoglobin, blood 13.2 g/dL leukocyte count, blood 8.9 10*3/mm3 Lab Report: CBC, Comp. Metabolic Panel, Free Thyroxine (L), Thyroid Stim ... - Chemistry sodium, serum 140 mmol/L 538-294 5813/05/28 potassium, serum 4.2 mmol/L 3.5-5.2 chloride, serum [...] Lab Report: Comp. Metabolic Panel - Chemistry potassium, serum 4.3 mmol/L 3.5-5.2 chloride, serum 106 mmol/L 98-107 carbon dioxide, venous blood 25.7 mmol/L 21.0-32.0 blood glucose 119 mg/dL 65-110 urea nitrogen, blood 22 mg/dL 7-18 sodium, serum 141 mmol/L [phone] creatinine, serum 0.90 mg/dL 0.60-1.30 alanine aminotransferase (SGPT), serum 28 U/L -78 aspartate aminotransferase (SGOT), serum 13 U/L 15-37 calcium, serum 8.5 mg/dL 8.5-10.1 bilirubin, serum, total 0.20 mg/dL 0.00-1.00 Lab Report: Comp. Metabolic Panel, Lipid Panel - Chemistry sodium, serum 139 mmol/L 611-172 7799/12/31 potassium, serum 4.8 mmol/L 3.5-5.2 chloride, serum 106 mmol/L 98-107 carbon dioxide, venous blood 24.3 mmol/L 21.0-32.0 blood glucose 90 mg/dL 65-110 urea nitrogen, blood 16 mg/dL 7-18 creatinine, serum 1.00 mg/dL 0.60-1.30 alanine aminotransferase (SGPT), serum 41 U/L aspartate aminotransferase (SGOT), serum 17 U/L 15-37 calcium, serum 8.6 mg/dL 8.5-10.1 bilirubin, serum, total 0.30 mg/dL 0.00-1.00 cholesterol, serum 108 mg/dL 549-298 7412/12/31 triglyceride, serum, fasting 120 mg/dL 30-200 HDL [...] mg/dL Negative Lab Report: UADIP W/MICRO, AUTO, [facility] [place] - Urinalysis pH, urine, semiquantitative 7.0 5.0-8.5 specific gravity, urine 1.025 1.000-1.030 appearance, urine Clear Clear urine color Yellow Colorless;Lightyellow;Straw;Yellow urobilinogen, urine, semiquantitative (dipstick) 0.2 Normal leukocyte esterase, urine, by dipstick Negative Negative nitrite, urine, semiquantitative Negative Negative glucose, urine, semiquantitative Negative Negative ketones, urine, by test strip Negative Negative bilirubin, urine Negative Negative Lab Report: Varicella-Zoater Inga IgG,IgM/44670, HEP Be Antibody/556, RUB ... - Serology rubella antibody, serum, IgG 2.88 Encounters Code Encounter Date Provider Facility CPT-76688 Level 3 Est. Patient 11:22:10 CDT Vishal Hui MD [facility] CPT-98878 Level 3 Est. Patient 11:03:32 CDT Sahara Rodriguez MD PhD [facility] CPT-87729 Level 3 Est. Patient 09:41:35 CDT Vishal Hui MD [facility] CPT-82657 Level 3 Est. Patient 12:00:41 CDT Neeraj Collins MD [facility] CPT-10068 Level 3 Est. Patient 09:16:24 CDT Vishal Hui MD [facility]-50873 Level 4 Est. Patient 13:59:09 CDT Neeraj Collins MD [facility] CPT-24920 Level 3 Est. Patient 15:19:43 CDT [facility] CPT-87340 Level 3 Est. Patient 18:10:26 CDT Sahara Rodriguez MD PhD [facility]-03170 Level 3 Est. Patient 14:49:50 CDT Vishal Hui MD [facility] CPT-54969 Level 4 Est. Patient 18:41:46 CDT Neeraj Collins MD [facility] CPT-25244 Level 4 Est. Patient 09:18:38 [employer] Vishal Hui MD [facility] CPT-88570 Level 3 Est. Patient 14:43:55 [employer]IE[employer] Vishal Hui MD [facility] CPT-85624 Level 3 Est. Patient 15:26:33 [employer]IE[employer] Sahara Rodriguez MD PhD [facility]-75606 Level 3 Est. Patient 10:32:14 [employer]IEF [employer]IVER Vishal Hui MD [facility] CPT-68543 Level 3 Est. Patient 15:12:52 [employer]IE[employer] Vishal Hui MD [facility] CPT-30489 Level 4 Est. Patient 09:19:27 CDT Vishal Hui MD [facility] CPT-92631 Level 3 Est. Patient 15:53:00 CDT [facility] CPT-78738 Level 3 Est. Patient 15:50:30 CDT [facility] CPT-67375 Level 3 Est. Patient 16:55:24 CDT Vishal Hui MD [facility] Procedures Code Procedure Name Date Entry Date Standard Description CPT-J3420 Vitamin B12 1000mcg (Cyanocobalamin) 08:34:04 CDT 10/09 CPT-88714 Abx/Therapy Injection 08:34:04 CDT CPT-J3420 Vitamin B12 1000mcg (Cyanocobalamin) 09:18:52 CDT 09/11 CPT-95328 Abx/Therapy Injection 09:18:52 CDT CPT-J3420 Vitamin B12 1000mcg (Cyanocobalamin) 08:35:44 CDT 09/04 CPT-49736 Abx/Therapy Injection 08:35:44 CDT CPT-01126 Immunization Single Admin 11:07:16 CDT CPT-28805 Hepatitis B adult IM 11:07:16 CDT CPT-J3420 Vitamin B12 1000mcg (Cyanocobalamin) 11:00:49 CDT 08/28 CPT-J1040 Depo Medrol 80 mg (Methyl Prednisolone Acetate) 11:00: 49 CDT CPT-65743 Abx/Therapy Injection 11:00:49 CDT CPT-J1040 Depo Medrol 80 mg (Methyl Prednisolone Acetate) 09:16: 23 CDT CPT-J3420 Vitamin B12 1000mcg (Cyanocobalamin) 08:27:05 CDT 08/20 CPT-46470 Abx/Therapy Injection 08:27:05 CDT CPT-81653 Recombivax HB Injection Suspension 5 MCG/0.5ML 10:00:41 CDT CPT-44805 Administration single or combination vaccine inc oral 10 :00:41 CDT CPT-08626 Sono transvag pelvis non OB uterus ovaries cervix 16:36: 57 CDT CPT-27609 LS spine comp w obliq 09:50:55 [employer] CPT-38030 Abd compl w upright 09:50:55 [employer]CIAL [employer]IE[employer] CPT-J1100 Decadron 4mg (Dexamethasone) 15:51:24 [employer]CIAL [employer]IE[employer] CPT-J1030 Depo Medrol 40 mg (Methyl Prednisolone Acetate) 15:51: 24 [employer]CIAL [employer]IE[employer] CPT-19196 Abx/Therapy Injection 15:51:24 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
--- OUTSIDE RECORDS SUMMARY | 2016-11-04 12:31 | XMS REPORT | Clinical Summary ---
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 BACTRIM DS 800-160 MG TAB 1 tab by mouth twice daily TRIMETHOPRIM-SULFAMETHOXAZOLE 25058745977 Active Neeraj Collins MD Active BACTRIM DS 800-160 MG TABS 1 po BID x 7 days SULFAMETHOXAZOLE-TRIMETHOPRIM 83648645984 No Longer Active Vishal Hui MD Active CHANTIX STARTING MONTH EARNEST 0.5 MG X 11 & 1 MG X 42 TABS 0.5mg daily for 3 days , then 0.5mg BID for 4 days, then 1mg BID VARENICLINE TARTRATE 04482519360 No Longer Active TAMARA Gray Active METOPROLOL TARTRATE 50 MG TAB 1 po bid METOPROLOL TARTRATE 64671894488 Active Vishal Hui MD Active TRAZODONE HCL 100 MG TAB take 1 at bedtime TRAZODONE HCL 80925411185 Active Vishal Hui MD Active AMLODIPINE BESYLATE 5 MG TABS 1 tablet by mouth daily AMLODIPINE BESYLATE 81855970684 Active Vishal Hui MD Active VERAPAMIL HCL CR 120 MG TAB CR 1 po bid VERAPAMIL HCL 32331081820 No Longer Active Vishal Hui MD Active METOPROLOL SUCCINATE 50 MG TB24 1 tablet by mouth daily METOPROLOL SUCCINATE 69964428904 No Longer Active Vishal Hui MD Active TRAMADOL HCL 50 MG TABS 1-2 po TID PRN Pain TRAMADOL HCL 19413862932 Active Vishal Hui MD Active SAPHRIS 5 MG SUBL 1 po bid ASENAPINE MALEATE 28419246529 Active Vishal Hui MD Active SAPHRIS 10 MG SUBL 1 tab po bid ASENAPINE MALEATE 91311023825 No Longer Active Vishal Hui MD Active LISINOPRIL 20 MG TABS 1 tab po qd LISINOPRIL 10150334513 No Longer Active Vishal Hui MD Active BENADRYL 25 MG CAP 2 po tid prn anxiety DIPHENHYDRAMINE HCL 15752200015 Active Vishal Hui MD Active LATUDA 80 MG TABS Take one by mouth daily LURASIDONE HCL 22238060660 Active Vishal Hui MD Active LATUDA 20 MG TABS Take one by mouth daily LURASIDONE HCL 53269125465 No Longer Active Vishal Hui MD Active TRAZODONE HCL 50 MG TABS 1/2 tab po qd prn for anxiety TRAZODONE HCL 22962397663 No Longer Active Vishal Hui MD Active PIROXICAM 20 MG CAPS 1 cap po qd PRN Pain PIROXICAM 16026017598 Active Vishal Hui MD Active OMEPRAZOLE 20 MG TBEC 1 po q a.m. 30min prior to first food intake OMEPRAZOLE 69523629159 Active Vishal Hui MD Active RANITIDINE HCL 150 MG CAPS 1 twice a day RANITIDINE HCL 49089553199 Active Vishal Hui MD Active MULTIVITAMINS CAPS Take one by mouth daily MULTIPLE VITAMIN 85260483295 Active Vishal Hui MD Active MELATONIN 3 MG CAPS 2 po q hs MELATONIN 26772962851 Active Vishal Hui MD Active PROZAC 20 MG CAP Take one by mouth daily FLUOXETINE HCL 86423847977 Active Vishal Hui MD Active LINZESS 290 MCG CAPS Take one by mouth daily LINACLOTIDE 26749906042 Active Vishal Hui MD Active SAPHRIS 5 MG SUBL 1 tab po qd ASENAPINE MALEATE 26612983387 No Longer Active Vishal Hui MD Active ZALEPLON 10 MG CAPS 1 cap po every other night ZALEPLON 50750822477 No Longer Active Vishal Hui MD Active LYRICA 50 MG CAPS 1 tab po TID PREGABALIN 32737324005 No Longer Active Vishal Hui MD Active LORATADINE 10 MG TABS 1 tab po qd LORATADINE 77933285448 No Longer Active Vishal Hui MD Active VERAPAMIL HCL ER 180 MG CR-TABS 1 tab po bid VERAPAMIL HCL 73997587950 No Longer Active Vishal Hui MD Active MIRALAX POWD 1 capfull once daily POLYETHYLENE GLYCOL 3350 54723295749 No Longer Active Vishal Hui MD Active PREDNISONE 20 MG TABS 1 tab po qd PREDNISONE 79961626721 No Longer Active Renzo Thornton DO Active LEVOFLOXACIN 500 MG TABS 1 tab po qd LEVOFLOXACIN 93867780372 No Longer Active Renzo Thornton DO Active BUSPIRONE HCL 15 MG TABS 1 tab po TID BUSPIRONE HCL 22140691973 No Longer Active Renzo Thornton DO Active BENZTROPINE MESYLATE 1 MG TABS 1 tab po qd BENZTROPINE MESYLATE 63313191144 No Longer Active Renzo Thornton DO Active ATENOLOL 25 MG TABS 1 tab po qd ATENOLOL 15746563982 No Longer Active Renzo Thornton DO Active ESCITALOPRAM OXALATE 20 MG TABS 1 tab po qd ESCITALOPRAM OXALATE 32143012006 No Longer Active Renzo Thornton DO Active ADVAIR DISKUS 250-50 MCG/DOSE AEPB 1 puff BID FLUTICASONE-SALMETEROL 78990726735 No Longer Active Renzo Thornton DO Active PREDNISONE 20 MG TAB 2 tabs daily for 3 days, 1 tab daily for 3 days, 1/2 tab daily for 2 days PREDNISONE 10964077914 No Longer Active Vishal Hui MD Active CEFDINIR 300 MG CAPS by mouth twice a day CEFDINIR 52588644519 No Longer Active Vishal Hui MD Active LANSOPRAZOLE 30 MG CPDR 1 cap po qd LANSOPRAZOLE 51735771961 No Longer Active Vishal Hui MD Active TOPAMAX 25 MG TABS 1 tab po bid TOPIRAMATE 46603577819 Active Vishal Hui MD Active MINIPRESS 2 MG CAPS 1 cap po at night PRAZOSIN HCL 77995240103 Active Vishal Hui MD Active BACLOFEN 20 MG TABS 1 tab po tid BACLOFEN 67980878293 Active Vishal Hui MD Active ADVAIR DISKUS 250-50 MCG/DOSE AEPB 1 puff BID ADVAIR DISKUS 250-50 MCG/DOSE AEPB FLUTICASONE-SALMETEROL Inactive ESCITALOPRAM OXALATE 20 MG TABS 1 tab po qd ESCITALOPRAM OXALATE 20 MG TABS 067448 ESCITALOPRAM OXALATE Inactive ATENOLOL 25 MG TABS 1 tab po qd ATENOLOL 25 MG TABS 060268 ATENOLOL Inactive BENZTROPINE MESYLATE 1 MG TABS 1 tab po qd BENZTROPINE MESYLATE 1 MG TABS 979115 BENZTROPINE MESYLATE Inactive BUSPIRONE HCL 15 MG TABS 1 tab po TID BUSPIRONE HCL 15 MG TABS 845772 BUSPIRONE HCL Inactive LEVOFLOXACIN 500 MG TABS 1 tab po qd LEVOFLOXACIN 500 MG TABS 127810 LEVOFLOXACIN Inactive PREDNISONE 20 MG TABS 1 tab po qd PREDNISONE 20 MG TABS 827662 PREDNISONE Inactive MIRALAX POWD 1 capfull once daily MIRALAX POWD 176073 POLYETHYLENE GLYCOL 3350 Inactive VERAPAMIL HCL ER 180 MG CR-TABS 1 tab po bid VERAPAMIL HCL ER 180 MG CR-TABS VERAPAMIL HCL Inactive LORATADINE 10 MG TABS 1 tab po qd LORATADINE 10 MG TABS 813074 LORATADINE Inactive LYRICA 50 MG CAPS 1 tab po TID LYRICA 50 MG CAPS PREGABALIN Inactive ZALEPLON 10 MG CAPS 1 cap po every other night ZALEPLON 10 MG CAPS 742811 ZALEPLON Inactive SAPHRIS 5 MG SUBL 1 tab po qd SAPHRIS 5 MG SUBL ASENAPINE MALEATE Inactive TRAZODONE HCL 50 MG TABS 1/2 tab po qd prn for anxiety TRAZODONE HCL 50 MG TABS 348054 TRAZODONE HCL Inactive LATUDA 20 MG TABS Take one by mouth daily LATUDA 20 MG TABS LURASIDONE HCL Inactive LISINOPRIL 20 MG TABS 1 tab po qd LISINOPRIL 20 MG TABS 712283 LISINOPRIL Inactive SAPHRIS 10 MG SUBL 1 [...] twice a day CEFDINIR 300 MG CAPS 924923 CEFDINIR Inactive PREDNISONE 20 MG TAB 2 tabs daily for 3 days, 1 tab daily for 3 days, 1/2 tab daily for 2 days PREDNISONE 20 MG TAB 303982 PREDNISONE Inactive BACTRIM DS 800-160 MG TABS [...] Panel - Chemistry sodium, serum 141 mmol/L 032-433 1152 potassium, serum 4.3 mmol/L 3.5-5.2 chloride, serum [...] Panel - Chemistry sodium, serum 139 mmol/L 035-859 1135/12/31 potassium, serum 4.8 mmol/L 3.5-5.2 chloride, serum 106 mmol/L 98-107 carbon dioxide, venous blood 24.3 mmol/L 21.0-32.0 blood glucose 90 mg/dL 65-110 urea nitrogen, blood 16 mg/dL 7-18 creatinine, serum 1.00 mg/dL 0.60-1.30 alanine aminotransferase (SGPT), serum 41 U/L 12-78 aspartate aminotransferase (SGOT), serum 17 U/L 15-37 calcium, serum 8.6 mg/dL 8.5-10.1 bilirubin, serum, total 0.30 mg/dL 0.00-1.00 cholesterol, serum 108 mg/dL 878-695 2779/12/31 triglyceride, serum, fasting 120 mg/dL 30-200 HDL [...] Negative Negative Lab Report: UADIP W/MICRO, AUTO, [facility] - Chemistry protein, total urine random Negative mg/dL Negative RBC, urine, dipstick Negative Negative human chorionic gonadotropin, urine, qualitative (urine test) Negative Negative Lab Report: UADIP W/MICRO, AUTO, [facility] - Urinalysis urobilinogen, urine, semiquantitative (dipstick) 0.2 Normal leukocyte esterase, urine, by dipstick Negative Negative nitrite, urine, semiquantitative Negative Negative glucose, urine, semiquantitative Negative Negative ketones, urine, by test strip Negative Negative bilirubin, urine Negative Negative urine color Yellow Colorless;Lightyellow;Straw;Yellow appearance, urine Clear Clear specific gravity, urine 1.025 1.000-1.030 pH, urine, semiquantitative 7.0 5.0-8.5 Lab Report: Varicella-Zoater Inga IgG,IgM/85357, HEP Be Antibody/556, RUB ... - Serology rubella antibody, serum, IgG 2.88 Encounters Code Encounter Date Provider Facility CPT-02342 Level 3 Est. Patient 14:49:50 CDT Vishal Hui MD [facility] CPT-46139 Level 4 Est. Patient 18:41:46 CDT Neeraj Collins MD [facility] CPT-86323 Level 4 Est. 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 Patient 14:43:55 OFF TRACK BETTING MANAGER Vishal Hui MD [facility] CPT-97026 Level 3 Est. Patient 15:26:33 OFF TRACK BETTING MANAGER Sahara Rodriguez MD PhD [facility] CPT-91644 Level 3 Est. Patient 10:32:14 OFF TRACK BETTING MANAGER Vishal Hui MD [facility] CPT-96666 Level 3 Est. Patient 15:12:52 OFF TRACK BETTING MANAGER Vishal Hui MD [facility] CPT-91582 Level 4 Est. Patient 09:19:27 CDT Vishal Hui MD [facility] CPT-67790 Level 3 Est. Patient 15:53:00 CDT Renzo Thornton [facility] CPT-76856 Level 3 Est. Patient 15:50:30 CDT Renzo Thornton [facility] CPT-47368 Level 3 Est. Patient 16:55:24 CDT Vishal Hui MD [facility] Procedures Code Procedure Name Date Entry Date Standard Description CPT-53140 Recombivax HB Injection Suspension 5 MCG/0.5ML 10:00:41 CDT CPT-24035 Administration single or combination vaccine inc oral 10 :00:41 CDT CPT-36213 Sono transvag pelvis non OB uterus ovaries cervix 16:36: 57 CDT CPT-20074 LS spine comp w obliq 09:50:55 OFF TRACK BETTING MANAGER CPT-81002 Abd compl w upright 09:50:55 OFF TRACK BETTING MANAGER CPT-J1100 Decadron 4mg (Dexamethasone) 15:51:24 OFF TRACK BETTING MANAGER CPT-J1030 Depo Medrol 40 mg (Methyl Prednisolone Acetate) 15:51: 24 OFF TRACK BETTING MANAGER CPT-38293 Abx/Therapy Injection 15:51:24 OFF TRACK BETTING MANAGER CPT-J1100 Decadron 4mg (Dexamethasone) 15:26:33 OFF TRACK BETTING MANAGER CPT-J1030 Depo Medrol 40 mg (Methyl Prednisolone Acetate) 15:26: 33 OFF TRACK BETTING MANAGER CPT-17738 Sono retroperitoneal complete kidneys and bladder 17:15: 30 CDT CPT-70813 Abd compl w upright 16:09:25 CDT CPT-J1100 Decadron 8mg (Dexamethasone) 17:07:57 CDT CPT-85429 Abx/Therapy Injection 17:07:57 CDT CPT-J1100 Decadron 8mg (Dexamethasone) 16:55:24 CDT CPT-80063 Chest 2V Frontal and Lat 16:32:44 CDT
--- OUTSIDE RECORDS SUMMARY | 2016-11-04 12:35 | XMS REPORT | Clinical Summary ---
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 Juliet Kimbrough DATABASE COORDINATOR Dependence on other enabling machines and devices [...] Active Ahmet Carbajal MD Generalized anxiety disorder Capability Lead well woman exam V72.31 Resolved Suzan Boo [...] Vishal Hui MD Leukocytosis ICD-288.60 Inactive Vishal Hiu MD UTI ICD-599.0 Inactive Vishal Hui MD [...] Upper respiratory infection ICD-465.9 Inactive Suzan Boo DATABASE COORDINATOR Other fracture of upper and lower end [...] Bronchitis, acute ICD-466.0 Inactive Ahmet Carbajal MD Capability Lead well woman exam ICD-V72.31 Inactive Suzan Rajeev DATABASE COORDINATOR Bronchitis, acute with mild bronchospasm ICD-466.0 Inactive Suzan Rajeev DATABASE COORDINATOR Tracheitis ICD-464.10 Inactive Suzan Boo DATABASE COORDINATOR Impetigo ICD-684 Inactive Suzan Boo DATABASE COORDINATOR Furuncle of buttock ICD-680.5 Inactive Suzan Boo DATABASE COORDINATOR Vaginal irritation ICD-623.9 Inactive Suzan Boo DATABASE COORDINATOR Scalding pain on urination ICD-788.1 Inactive Suzan Boo APRN Abdominal pain, right upper quadrant ICD-789.01 Inactive Suzan Boo DATABASE COORDINATOR Dark urine ICD-791.9 Inactive Suzan Boo APRN Preop exam ICD-V72.84 Inactive Suzan Rajeev WALTERSN Medication List Medication Instructions Start Date Stop Date Generic Name ND Status Provider Patient Instruction NYSTATIN 721403 UNIT/GM CREA apply three times a day to yeast rash NYSTATIN [id number] Active Suzan Boo APRN Active AMITIZA 24 MCG ORAL CAPS one capsule twice daily LUBIPROSTONE 03429277331 Active Suzan Boo APRN Active MIRALAX ORAL POWD 17GMS DAILY IN WATER POLYETHYLENE GLYCOL 3350 56752025201 No Longer Active Suzan Boo APRN Active LACTULOSE 10 GM/15ML ORAL SOLN 30mL oral BID for IBS-C LACTULOSE 98439928189 No Longer Active Suzan Boo APRN Active BACTRIM DS 800-160 MG TAB Take one (1) tablet by mouth twice a day for 5 days TRIMETHOPRIM-SULFAMETHOXAZOLE 87915649602 No Longer Active Suzan Boo APRN Active MUPIROCIN 2 % OINT apply twice a day MUPIROCIN 86422115102 No Longer Active Suzan Boo APRN Active BACTRIM DS 800-160 MG TABS 1 twice a day SULFAMETHOXAZOLE-TRIMETHOPRIM 94126084162 No Longer Active Suzan Boo APRN Active DIFLUCAN 150 MG TABS 1 by mouth for yeast FLUCONAZOLE 85389077677 No Longer Active Suzan Boo APRN Active LINZESS 290 MCG ORAL CAPS 1 tab 30 min prior to first meal each day. LINACLOTIDE 16391100559 No Longer Active Sheila Calderon LPN Active AMITIZA 8 MCG ORAL CAPS 1 tab BID LUBIPROSTONE 50555421111 No Longer Active Lynda Xiao RESEARCH CONSULTANT Active TESSALON PERLES 100 MG CAPS 1 three times a day as needed for cough BENZONATATE 74434849835 No Longer Active Suzan Boo APRN Active BACTRIM DS 800-160 MG TABS 1 twice a day SULFAMETHOXAZOLE-TRIMETHOPRIM 89852055561 No Longer Active Suzan Boo APRN Active DIFLUCAN 150 MG TABS 1 by mouth for yeast FLUCONAZOLE 89159396229 No Longer Active Suzan Boo APRN Active EQ NICOTINE 21 MG/24HR TRANS PT24 Apply daily to stop smoking NICOTINE 58695935361 No Longer Active Suzan Boo APRN Active PREDNISONE 10 MG TABS 2 daily for 5 days then 1 daily for 5 days PREDNISONE 66232735456 No Longer Active Suzan Boo APRN Active LEVAQUIN 500 MG TABS 1 daily for infection LEVOFLOXACIN 63779535810 No Longer Active Suzan Boo APRN Active TROPICAMIDE 0.5 % OPHTH SOLN 1 drop PRN eye spasms TROPICAMIDE 60042266665 No Longer Active Suzan Boo APRN Active PREDNISONE 20 MG TAB 1 tablet daily x 4 days PREDNISONE 34133634111 No Longer Active Suzan Boo APRN Active ACETAMINOPHEN-CODEINE 120-12 MG/5ML SOLN 5 ml by mouth every 4-6 hours if needed for cough ACETAMINOPHEN-CODEINE 58412005504 No Longer Active Suzan Boo APRN Active KEFLEX 500 MG CAP 1 po qid CEPHALEXIN 96801528960 No Longer Active Suzan Boo APRN Active FLOVENT HFA 110 MCG/ACT AERO 2 puffs inhaled b.i.d. FLUTICASONE PROPIONATE HFA 33125155853 Active Renzo Thornton DO Active RISPERDAL 4 MG ORAL TABS 1 tab at bedtime RISPERIDONE 89432321872 Active Samantha Rothman RMA Active ZOFRAN 4 MG TABS 1 po q6hr PRN Nausea ONDANSETRON HCL No Longer Active Suzan Boo APRN Active FLUTICASONE PROPIONATE 50 MCG/ACT SUSP 2 sprays each nostril daily before bed. FLUTICASONE PROPIONATE 98858378541 No Longer Active Suzan Boo APRN Active ASPIRIN 325 MG ORAL TABS 1 tab q.d ASPIRIN 94511540165 No Longer Active Suzan Boo APRN Active HALOPERIDOL 10 MG ORAL TABS 1 tab q.d HALOPERIDOL 28419145458 No Longer Active Suzan Boo APRN Active GUAIFENESIN-CODEINE 100-10 MG/5ML SYRP 5ml every 4 to 6 hours as needed for cough GUAIFENESIN-CODEINE 91788818080 No Longer Active Suzan Boo APRN Active ZITHROMAX Z-EARNEST 250 MG TABS 2 today and then 1 daily for 4 days AZITHROMYCIN 21343810855 No Longer Active Suzan Boo APRN Active CLONAZEPAM 1 MG ORAL TABS 1 twice a day and an additional 1 tablet every other day as needed for pseudoseizures or anxiety CLONAZEPAM 81934953516 Active Suzan Boo APRN Active HYDROCODONE-ACETAMINOPHEN 5-325 MG ORAL TABS 1 tab two times a day HYDROCODONE-ACETAMINOPHEN 12794503885 No Longer Active Ahmet Carbajal MD Active LAMICTAL 100 MG ORAL TABS 1 tab 2 times qd. LAMOTRIGINE 63648918675 Active Ahmet Carbajal MD Active PREDNISONE 20 MG TABS 2 daily for 5 days then 1 daily for 5 days PREDNISONE 88596561426 No Longer Active Ahmet Carbajal MD Active FLUTICASONE PROPIONATE 50 MCG/ACT SUSP 1 to 2 sprays each nostril daily for allergies FLUTICASONE PROPIONATE 63140096697 Active Tila Valenzuela Active BENADRYL 25 MG CAP 4 po at bedtime for insomnia DIPHENHYDRAMINE HCL 87644578502 No Longer Active Ahmet Carbajal MD Active ADVAIR DISKUS 250-50 MCG/DOSE INH AEPB 1 puff twice a day for asthma FLUTICASONE-SALMETEROL 92313452863 No Longer Active Ahmet Carbajal MD Active KLONOPIN 1 MG ORAL TABS 1 tab po TID CLONAZEPAM 86447049310 No Longer Active Ahmet Carbajal MD Active ABILIFY MAINTENA 400 MG IM SUSR 400mg injection every 26 days ARIPIPRAZOLE 54496225027 No Longer Active Ahmet Carbajal MD Active TRAMADOL HCL 50 MG TABS 1/2-1 tab TID PRN TRAMADOL HCL 53887677970 No Longer Active Ahmet Carbajal MD Active BACTRIM DS 800-160 MG TABS 1 twice a day SULFAMETHOXAZOLE- TRIMETHOPRIM 55221194204 No Longer Active Ahmet Carbajal MD Active PROAIR HFA 108 (90 BASE) MCG/ACT AERS 2 puffs four times a day as needed 2015 ALBUTEROL SULFATE 19989087644 Active Honey Hinton DATABASE COORDINATOR Active MONISTAT 7 COMBO PACK WOODROW 100 & 2 MG-% (9GM) VAG KIT 1 applicatorful per vagina q pm x 7 MICONAZOLE NITRATE 41018834641 No Longer Active Ahmet Carbajal MD Active FLAGYL 500 MG TAB 1 tablet by mouth bid METRONIDAZOLE 84319139367 No Longer Active Ahmet Carbajal MD Active OXYCODONE HCL ER 10 MG ORAL T12A 1/2 tab by mouth every 4 hours prn OXYCODONE HCL 31291728115 No Longer Active Ahmet Carbajal MD Active METHYLPREDNISOLONE 4 MG ORAL TABS po daily METHYLPREDNISOLONE 09273070348 No Longer Active Ahmet Carbajal MD Active LEVOFLOXACIN 500 MG ORAL TABS po daily LEVOFLOXACIN 64052980884 No Longer Active Ahmet Carbajal MD Active VIIBRYD 10 MG ORAL TABS Take 1 tablet once a day VILAZODONE HCL 26039762462 No Longer Active Ahmet Carbajal MD Active TOPAMAX 50 MG ORAL TABS 1 tab twice daily TOPIRAMATE 58644452870 No Longer Active Ahmet Carbajal MD Active DICLOFENAC SODIUM 50 MG TBEC 1 tablet by mouth four times daily PRN Pain 2015 DICLOFENAC SODIUM 33924986723 No Longer Active Ahmet Carbajal MD Active ADZENYS XR-ODT 6.3 MG ORAL TBED 1 tab po daily for ADHD AMPHETAMINE 27533987782 No Longer Active Ahmet Carbajal MD Active CHANTIX 1 MG TABS 1 twice a day to help quit smoking VARENICLINE TARTRATE 60377433717 No Longer Active Dipika Burgos MD Active CHANTIX STARTING MONTH EARNEST 0.5 MG X 11 & 1 MG X 42 TABS take as directed 2015 VARENICLINE TARTRATE 82416987323 No Longer Active Dipika Burgos MD Active TESSALON PERLES 100 MG CAP 1 to 2 tablets by mouth 3 times daily as needed for cough BENZONATATE 59724887222 No Longer Active Luigi Martínez APRN Active IMITREX 50 MG ORAL TABS 0.5 po x 1 PRN Headache. May repeat dose x 1 in 2 hours if needed SUMATRIPTAN SUCCINATE 08532883031 Active Ahmet Carbajal MD Active HYDROCODONE-ACETAMINOPHEN 5-325 MG TABS 1 to 2 four times a day as needed for pain use until can be seen by specialist HYDROCODONE- ACETAMINOPHEN 62164049598 No Longer Active Vishal Hui MD Active PROAIR HFA 108 (90 BASE) MCG/ACT AERS 2 puffs four times a day as needed 2015 ALBUTEROL SULFATE 37981452568 No Longer Active Vishal Hui MD Active PREDNISONE 20 MG TABS 2 daily for 5 days then 1 daily for 5 days PREDNISONE 74869206776 No Longer Active Vishal Hui MD Active ZITHROMAX Z-EARNEST 250 MG TABS 2 today and then 1 daily for 4 days AZITHROMYCIN 62325224414 No Longer Active Vishal Hui MD Active DICLOFENAC POTASSIUM TABS Take 1 tablet twice a day (pt. is not sure of the dose.) DICLOFENAC POTASSIUM TABS 44616768542 No Longer Active Vishal Hui MD Active VERAPAMIL HCL ER 120 MG ORAL CR-TABS Take 1 tablet by mouth twice a day. VERAPAMIL HCL 46264728671 Active Vishal Hui MD Active FLAGYL 500 MG TAB 1 tablet by mouth bid METRONIDAZOLE 55076736251 No Longer Active Vishal Hui MD Active VALIUM 5 MG TAB Take 1-2 tablets daily DIAZEPAM 65541641606 No Longer Active Fabiola Johnson APRN Active METOPROLOL TARTRATE 25 MG ORAL TABS 1/2 tablet twice daily for heart rate and blood pressure METOPROLOL TARTRATE 28227720993 No Longer Active Fabiola Johnson APRN Active MIRALAX PACK 1 po qd PRN Constipation POLYETHYLENE GLYCOL 3350 84483313995 No Longer Active Ahmet Carbajal MD Active MINIPRESS 2 MG CAPS 4 cap po at night PRAZOSIN HCL 40044323397 No Longer Active Ahmet Carbajal MD Active PIROXICAM 20 MG CAPS 1 cap po qd PRN Pain PIROXICAM 05388745423 No Longer Active Ahmet Carbajal MD Active TRAMADOL HCL 50 MG TABS 1-2 po TID PRN Pain TRAMADOL HCL 97136668171 No Longer Active Ahmet Carbajal MD Active METOPROLOL TARTRATE 50 MG TAB 1 po bid METOPROLOL TARTRATE 83601158583 No Longer Active Ahmet Carbajal MD Active ABILIFY 15 MG ORAL TABS 1 tab daily ARIPIPRAZOLE 35448798704 No Longer Active Ahmet Carbajal MD Active PROZAC 20 MG ORAL CAPS 1 tab daily FLUOXETINE HCL 96235245972 No Longer Active Ahmet Carbajal MD Active AMBIEN 5 MG ORAL TABS 1 tab at bedtime ZOLPIDEM TARTRATE 30781234068 No Longer Active Ahmet Carbajal MD Active PREDNISONE 20 MG TAB 2 tabs daily for 4 days, 1 tab daily for 4 days, 1/2 tab daily for 4 days PREDNISONE 59060477604 No Longer Active Ahmet Carbajal MD Active KEFLEX 500 MG CAP 1 po TID x 10 days CEPHALEXIN 89113138205 No Longer Active Vishal Hui MD Active SAPHRIS 5 MG SUBL 1 po bid ASENAPINE MALEATE 69087329784 No Longer Active Luigi Martínez APRN Active LATUDA 80 MG TABS Take one by mouth daily LURASIDONE HCL 67435228645 No Longer Active Pacolljanee Martínez APRN Active AMLODIPINE BESYLATE 5 MG TABS 1 tablet by mouth daily AMLODIPINE BESYLATE 34732316588 No Longer Active Pacollina Frazell DATABASE COORDINATOR Active AMITRIPTYLINE HCL 100 MG TAB one at hs AMITRIPTYLINE HCL 87771260707 No Longer Active Vishal Hui MD Active TRAZODONE HCL 100 MG TAB take 1 at bedtime TRAZODONE HCL 30856075075 No Longer Active Vishal Hui MD Active VYVANSE 40 MG CAPS 1 daily, LISDEXAMFETAMINE DIMESYLATE 53144018806 No Longer Active Vishal Hui MD Active IBUPROFEN 600 MG TAB 1 po TID PRN IBUPROFEN 64521674274 No Longer Active Vishal Hui MD Active PROZAC 20 MG CAP Take one by mouth daily FLUOXETINE HCL 03553389682 No Longer Active Vishal Hui MD Active BACTRIM DS 800-160 MG TABS 1 pill by mouth twice daily SULFAMETHOXAZOLE-TRIMETHOPRIM 44781445147 No Longer Active Sahara Rodriguez MD PhD Active DIFLUCAN 150 MG TAB 1 tablet by mouth daily FLUCONAZOLE 22077498932 No Longer Active Vishal Hui MD Active TIZANIDINE HCL 4 MG TABS 1 po q6hr PRN Muscle Spasm/Back Pain TIZANIDINE HCL 93833533239 Active TAMARA Casey Active CLINDAMYCIN HCL 150 MG CAPS 1 four times a day CLINDAMYCIN HCL 85841771828 No Longer Active Neeraj Collins MD Active KEFLEX 500 MG ORAL CAPS 1 cap QID by mouth CEPHALEXIN 05314343531 No Longer Active Neeraj Collins MD Active DIFLUCAN 150 MG TABS 1 pill every other day x 2 doses FLUCONAZOLE 17392487942 No Longer Active Sahara Rodriguez MD PhD Active MELATONIN 3 MG CAPS 2 po q hs MELATONIN 96277589947 No Longer Active Sahara Rodriguez MD PhD Active MULTIVITAMINS CAPS Take one by mouth daily MULTIPLE VITAMIN 82335750328 No Longer Active Sahara Rodriguze MD PhD Active BACTRIM DS 800-160 MG TAB 1 tab by mouth twice daily TRIMETHOPRIM-SULFAMETHOXAZOLE 17329966629 No Longer Active Sahara Rodriguez MD PhD Active [facility] PROBIOTIC ORAL CHEW 2 daily po PROBIOTIC PRODUCT 54606870307 No Longer Active Sahara Rodriguez MD PhD Active BACTRIM DS 800-160 MG TABS 1 po BID x 7 days SULFAMETHOXAZOLE-TRIMETHOPRIM 66945568434 No Longer Active Vishal Hui MD Active CHANTIX STARTING MONTH EARNEST 0.5 MG X 11 & 1 MG X 42 TABS 0.5mg daily for 3 days , then 0.5mg BID for 4 days, then 1mg BID VARENICLINE TARTRATE 37927750423 No Longer Active TAMARA Gray Active VERAPAMIL HCL CR 120 MG TAB CR 1 po bid VERAPAMIL HCL 92105287783 No Longer Active Vishal Hui MD Active METOPROLOL SUCCINATE 50 MG TB24 1 tablet by mouth daily METOPROLOL SUCCINATE 19175731470 No Longer Active Vishal Hui MD Active SAPHRIS 10 MG SUBL 1 tab po bid ASENAPINE MALEATE 17305171514 No Longer Active Vishal Hui MD Active LISINOPRIL 20 MG TABS 1 tab po qd LISINOPRIL 94986343482 No Longer Active Vishal Hui MD Active LATUDA 20 MG TABS Take one by mouth daily LURASIDONE HCL 90309860541 No Longer Active Vishal Hui MD Active TRAZODONE HCL 50 MG TABS 1/2 tab po qd prn for anxiety TRAZODONE HCL 95849408963 No Longer Active Vishal Hui MD Active OMEPRAZOLE 20 MG TBEC 1 po q a.m. 30min prior to first food intake OMEPRAZOLE 54660781063 Active TAMARA Casey Active RANITIDINE HCL 150 MG CAPS 1 twice a day RANITIDINE HCL 61223939440 Active Lynda Madl RESEARCH CONSULTANT Active LINZESS 290 MCG CAPS Take one by mouth daily LINACLOTIDE 21640522647 No Longer Active Vishal Hui MD Active SAPHRIS 5 MG SUBL 1 tab po qd ASENAPINE MALEATE 47243191619 No Longer Active Vishal Hui MD Active ZALEPLON 10 MG CAPS 1 cap po every other night ZALEPLON 72907219746 No Longer Active Vishal Hui MD Active LYRICA 50 MG CAPS 1 tab po TID PREGABALIN 83263670032 No Longer Active Vishal Hui MD Active LORATADINE 10 MG TABS 1 tab po qd LORATADINE 40526315230 No Longer Active Vishal Hui MD Active VERAPAMIL HCL ER 180 MG CR-TABS 1 tab po bid VERAPAMIL HCL 31414499170 No Longer Active Vishal Hui MD Active MIRALAX POWD 1 capfull once daily POLYETHYLENE GLYCOL 3350 30443666983 No Longer Active Vishal Hui MD Active PREDNISONE 20 MG TABS 1 tab po qd PREDNISONE 67693745866 No Longer Active Renzo Thornton DO Active LEVOFLOXACIN 500 MG TABS 1 tab po qd LEVOFLOXACIN 41566589734 No Longer Active Renzo Thornton DO Active BUSPIRONE HCL 15 MG TABS 1 tab po TID BUSPIRONE HCL 64424714793 No Longer Active Renzo Thornton DO Active BENZTROPINE MESYLATE 1 MG TABS 1 tab po qd BENZTROPINE MESYLATE 18261978066 No Longer Active Renzo Thornton DO Active ATENOLOL 25 MG TABS 1 tab po qd ATENOLOL 91805719506 No Longer Active Renzo Thornton DO Active ESCITALOPRAM OXALATE 20 MG TABS 1 tab po qd ESCITALOPRAM OXALATE 07619177539 No Longer Active Renzo Thornton DO Active ADVAIR DISKUS 250-50 MCG/DOSE AEPB 1 puff BID FLUTICASONE-SALMETEROL 43419786465 No Longer Active Renzo Thornton DO Active PREDNISONE 20 MG TAB 2 tabs daily for 3 days, 1 tab daily for 3 days, 1/2 tab daily for 2 days PREDNISONE 19161628490 No Longer Active Vishal Hui MD Active CEFDINIR 300 MG CAPS by mouth twice a day CEFDINIR 27319671921 No Longer Active Vishal Hui MD Active LANSOPRAZOLE 30 MG CPDR 1 cap po qd LANSOPRAZOLE 64261058564 No Longer Active Vishal Hui MD Active BACLOFEN 20 MG TABS 1 tab po tid BACLOFEN 13161847076 No Longer Active Vishal Hui MD Active ADVAIR DISKUS 250-50 MCG/DOSE AEPB 1 puff BID ADVAIR DISKUS 250-50 MCG/DOSE AEPB FLUTICASONE-SALMETEROL Inactive ESCITALOPRAM OXALATE 20 MG TABS 1 tab po qd ESCITALOPRAM OXALATE 20 MG TABS 437649 ESCITALOPRAM OXALATE Inactive ATENOLOL 25 MG TABS 1 tab po qd ATENOLOL 25 MG TABS 827820 ATENOLOL Inactive BENZTROPINE MESYLATE 1 MG TABS 1 tab po qd BENZTROPINE MESYLATE 1 MG TABS 430794 BENZTROPINE MESYLATE Inactive BUSPIRONE HCL 15 MG TABS 1 tab po TID BUSPIRONE HCL 15 MG TABS 486532 BUSPIRONE HCL Inactive LEVOFLOXACIN 500 MG TABS 1 tab po qd LEVOFLOXACIN 500 MG TABS 217324 LEVOFLOXACIN Inactive PREDNISONE 20 MG TABS 1 tab po qd PREDNISONE 20 MG TABS 370251 PREDNISONE Inactive MIRALAX POWD 1 capfull once daily MIRALAX POWD 553986 POLYETHYLENE GLYCOL 3350 Inactive VERAPAMIL HCL ER 180 MG CR-TABS 1 tab po bid VERAPAMIL HCL ER 180 MG CR-TABS VERAPAMIL HCL Inactive LORATADINE 10 MG TABS 1 tab po qd LORATADINE 10 MG TABS 287369 LORATADINE Inactive LYRICA 50 MG CAPS 1 tab po TID LYRICA 50 MG CAPS PREGABALIN Inactive ZALEPLON 10 MG CAPS 1 cap po every other night ZALEPLON 10 MG CAPS 544466 ZALEPLON Inactive SAPHRIS 5 MG SUBL 1 tab po qd SAPHRIS 5 MG SUBL ASENAPINE MALEATE Inactive TRAZODONE HCL 50 MG TABS 1/2 tab po qd prn for anxiety TRAZODONE HCL 50 MG TABS 103666 TRAZODONE HCL Inactive LATUDA 20 MG TABS Take one by mouth daily LATUDA 20 MG TABS LURASIDONE HCL Inactive LISINOPRIL 20 MG TABS 1 tab po qd LISINOPRIL 20 MG TABS 688742 LISINOPRIL Inactive SAPHRIS 10 MG SUBL 1 [...] twice daily BACTRIM DS 800-160 MG TAB 182561 TRIMETHOPRIM-SULFAMETHOXAZOLE Inactive MULTIVITAMINS CAPS Take one by mouth daily MULTIVITAMINS CAPS MULTIPLE VITAMIN Inactive MELATONIN 3 MG CAPS 2 po q hs MELATONIN 3 MG CAPS 767590 MELATONIN Inactive KEFLEX 500 MG ORAL CAPS 1 cap QID by mouth KEFLEX 500 MG ORAL CAPS 643015 CEPHALEXIN Inactive CLINDAMYCIN HCL 150 MG CAPS 1 four times a day CLINDAMYCIN HCL 150 MG CAPS 19740326 CLINDAMYCIN HCL Inactive DIFLUCAN 150 MG TAB 1 tablet by mouth daily DIFLUCAN 150 MG TAB 362752 FLUCONAZOLE Inactive PROZAC 20 MG CAP Take one by mouth daily PROZAC 20 MG CAP 033583 FLUOXETINE HCL Inactive IBUPROFEN 600 MG TAB 1 po TID PRN IBUPROFEN 600 MG TAB 150317 IBUPROFEN Inactive VYVANSE 40 MG CAPS 1 daily, VYVANSE 40 MG CAPS LISDEXAMFETAMINE DIMESYLATE Inactive TRAZODONE HCL 100 MG TAB take 1 at bedtime TRAZODONE HCL 100 MG TAB 375812 TRAZODONE HCL Inactive AMITRIPTYLINE HCL 100 MG TAB one at hs AMITRIPTYLINE HCL 100 MG TAB 853519 AMITRIPTYLINE HCL Inactive AMLODIPINE BESYLATE 5 MG TABS 1 tablet by mouth daily AMLODIPINE BESYLATE 5 MG TABS 808175 AMLODIPINE BESYLATE Inactive LATUDA 80 MG TABS Take one by mouth daily LATUDA 80 MG TABS LURASIDONE HCL Inactive SAPHRIS 5 MG SUBL 1 po bid SAPHRIS 5 MG SUBL ASENAPINE MALEATE Inactive PREDNISONE 20 MG TAB 2 tabs daily for 4 days, 1 tab daily for 4 days, 1/2 tab daily for 4 days PREDNISONE 20 MG TAB 676917 PREDNISONE Inactive AMBIEN 5 MG ORAL TABS 1 tab at bedtime AMBIEN 5 MG ORAL TABS 408130 ZOLPIDEM TARTRATE Inactive PROZAC 20 MG ORAL CAPS 1 tab daily PROZAC 20 MG ORAL CAPS 715269 FLUOXETINE HCL Inactive ABILIFY 15 MG ORAL TABS 1 tab daily ABILIFY 15 MG ORAL TABS 673471 ARIPIPRAZOLE Inactive METOPROLOL TARTRATE 50 MG TAB 1 po bid METOPROLOL TARTRATE 50 MG TAB 394188 METOPROLOL TARTRATE Inactive TRAMADOL HCL 50 MG TABS 1-2 po TID PRN Pain TRAMADOL HCL 50 MG TABS 064354 TRAMADOL HCL Inactive PIROXICAM 20 MG CAPS 1 cap po qd PRN Pain PIROXICAM 20 MG CAPS 480833 PIROXICAM Inactive MINIPRESS 2 MG CAPS 4 cap po at night MINIPRESS 2 MG CAPS 447043 PRAZOSIN HCL Inactive MIRALAX PACK 1 po qd PRN Constipation MIRALAX PACK 304089 POLYETHYLENE GLYCOL 3350 Inactive METOPROLOL TARTRATE 25 MG ORAL TABS 1/2 tablet twice daily for heart rate and blood pressure METOPROLOL TARTRATE 25 MG ORAL TABS 619446 METOPROLOL TARTRATE Inactive VALIUM 5 MG TAB Take 1-2 tablets daily VALIUM 5 MG TAB 725057 DIAZEPAM Inactive FLAGYL 500 MG TAB 1 tablet by mouth bid FLAGYL 500 MG TAB 981418 METRONIDAZOLE Inactive DICLOFENAC POTASSIUM TABS Take 1 tablet twice a day (pt. is not sure of the dose.) DICLOFENAC POTASSIUM TABS DICLOFENAC POTASSIUM TABS Inactive ZITHROMAX Z-EARNEST 250 MG TABS 2 today and then 1 daily for 4 days ZITHROMAX Z-EARNEST 250 MG TABS 5531051 AZITHROMYCIN Inactive PREDNISONE 20 MG TABS 2 daily for 5 days then 1 daily for 5 days PREDNISONE 20 MG TABS 396202 PREDNISONE Inactive PROAIR HFA 108 (90 BASE) MCG/ACT AERS 2 puffs four times a day as needed 2015 PROAIR HFA 108 (90 BASE) MCG/ACT AERS ALBUTEROL SULFATE Inactive HYDROCODONE-ACETAMINOPHEN 5-325 MG TABS 1 to 2 four times a day as needed for pain use until can be seen by specialist HYDROCODONE- ACETAMINOPHEN 5-325 MG TABS 657803 HYDROCODONE-ACETAMINOPHEN Inactive TESSALON PERLES 100 MG CAP 1 to 2 tablets by mouth 3 times daily as needed for cough TESSALON PERLES 100 MG CAP 010437 BENZONATATE Inactive CHANTIX STARTING MONTH EARNEST 0.5 [...] Pain 2015 DICLOFENAC SODIUM 50 MG TBEC 076508 DICLOFENAC SODIUM Inactive TOPAMAX 50 MG ORAL TABS 1 tab twice daily TOPAMAX 50 MG ORAL TABS 050901 TOPIRAMATE Inactive VIIBRYD 10 MG ORAL TABS Take 1 tablet once a day VIIBRYD 10 MG ORAL TABS VILAZODONE HCL Inactive LEVOFLOXACIN 500 MG ORAL TABS po daily LEVOFLOXACIN 500 MG ORAL TABS 957465 LEVOFLOXACIN Inactive METHYLPREDNISOLONE 4 MG ORAL TABS po daily METHYLPREDNISOLONE 4 MG ORAL TABS 702583 METHYLPREDNISOLONE Inactive OXYCODONE HCL ER 10 MG ORAL T12A 1/2 tab by mouth every 4 hours prn OXYCODONE HCL ER 10 MG ORAL T12A OXYCODONE HCL Inactive FLAGYL 500 MG TAB 1 tablet by mouth bid FLAGYL 500 MG TAB 179398 METRONIDAZOLE Inactive MONISTAT 7 COMBO PACK WOODROW 100 & 2 MG-% (9GM) VAG KIT 1 applicatorful per vagina q pm x 7 MONISTAT 7 COMBO PACK WOODROW 100 & 2 MG-% (9GM) VAG KIT MICONAZOLE NITRATE Inactive BACTRIM DS 800-160 MG TABS 1 twice a day BACTRIM DS 800-160 MG TABS 844756 SULFAMETHOXAZOLE-TRIMETHOPRIM Inactive TRAMADOL HCL 50 MG TABS 1/2-1 tab TID PRN TRAMADOL HCL 50 MG TABS 058658 TRAMADOL HCL Inactive ABILIFY MAINTENA 400 MG IM SUSR 400mg injection every 26 days ABILIFY MAINTENA 400 MG IM SUSR ARIPIPRAZOLE Inactive KLONOPIN 1 MG ORAL TABS 1 tab po TID KLONOPIN 1 MG ORAL TABS 808006 CLONAZEPAM Inactive ADVAIR DISKUS 250-50 MCG/DOSE INH AEPB 1 puff twice a day for asthma ADVAIR DISKUS 250-50 MCG/DOSE INH AEPB FLUTICASONE- SALMETEROL Inactive BENADRYL 25 MG CAP 4 po at bedtime for insomnia BENADRYL 25 MG CAP DIPHENHYDRAMINE HCL Inactive PREDNISONE 20 MG TABS 2 daily for 5 days then 1 daily for 5 days PREDNISONE 20 MG TABS 110329 PREDNISONE Inactive HYDROCODONE-ACETAMINOPHEN 5-325 MG ORAL TABS 1 tab two times a day HYDROCODONE-ACETAMINOPHEN 5-325 MG ORAL TABS 290095 HYDROCODONE-ACETAMINOPHEN Inactive ZITHROMAX Z-EARNEST 250 MG TABS 2 today and then 1 daily for 4 days ZITHROMAX Z-EARNEST 250 MG TABS 5953310 AZITHROMYCIN Inactive GUAIFENESIN-CODEINE 100-10 MG/5ML SYRP 5ml every 4 to 6 hours as needed for cough GUAIFENESIN-CODEINE 100-10 MG/5ML SYRP 283320 GUAIFENESIN-CODEINE Inactive HALOPERIDOL 10 MG ORAL TABS 1 tab q.d HALOPERIDOL 10 MG ORAL TABS 642745 HALOPERIDOL Inactive ASPIRIN 325 MG ORAL TABS 1 tab q.d ASPIRIN 325 MG ORAL TABS 741282 ASPIRIN Inactive FLUTICASONE PROPIONATE 50 MCG/ACT SUSP 2 sprays each nostril daily before bed. FLUTICASONE PROPIONATE 50 MCG/ACT SUSP 3687940 FLUTICASONE PROPIONATE Inactive ZOFRAN 4 MG TABS 1 po q6hr PRN Nausea ZOFRAN 4 MG TABS [id number] ONDANSETRON HCL Inactive KEFLEX 500 MG CAP 1 po qid KEFLEX 500 MG CAP [id number] CEPHALEXIN Inactive ACETAMINOPHEN-CODEINE 120-12 MG/5ML SOLN 5 ml by mouth every 4-6 hours if needed for cough ACETAMINOPHEN-CODEINE 120-12 MG/5ML SOLN 731715 ACETAMINOPHEN-CODEINE Inactive PREDNISONE 20 MG TAB 1 tablet daily x 4 days PREDNISONE 20 MG TAB [id number] PREDNISONE Inactive TROPICAMIDE 0.5 % OPHTH SOLN 1 drop PRN eye spasms TROPICAMIDE 0.5 % OPHTH SOLN 408291 TROPICAMIDE Inactive LEVAQUIN 500 MG TABS 1 daily for infection LEVAQUIN 500 MG TABS 512927 LEVOFLOXACIN Inactive PREDNISONE 10 MG TABS 2 daily for 5 days then 1 daily for 5 days PREDNISONE 10 MG TABS 846664 PREDNISONE Inactive EQ NICOTINE 21 MG/24HR TRANS [...] twice a day MUPIROCIN 2 % OINT [id number] MUPIROCIN Inactive BACTRIM DS 800-160 MG TAB Take one (1) tablet by mouth twice a day for 5 days BACTRIM DS 800-160 MG TAB [id number] TRIMETHOPRIM- SULFAMETHOXAZOLE Inactive LACTULOSE 10 GM/15ML ORAL SOLN 30mL oral BID for IBS-C LACTULOSE 10 GM/15ML ORAL SOLN 392611 LACTULOSE Inactive MIRALAX ORAL POWD 17GMS DAILY IN WATER MIRALAX ORAL POWD 251657 POLYETHYLENE GLYCOL 3350 Inactive CEFDINIR 300 MG CAPS by mouth twice a day CEFDINIR 300 MG CAPS 714569 CEFDINIR Inactive PREDNISONE 20 MG TAB 2 tabs daily for 3 days, 1 tab daily for 3 days, 1/2 tab daily for 2 days PREDNISONE 20 MG TAB 368206 PREDNISONE Inactive BACTRIM DS 800-160 MG TABS 1 po BID x 7 days BACTRIM DS 800-160 MG TABS 19820521 SULFAMETHOXAZOLE-TRIMETHOPRIM Inactive DIFLUCAN 150 MG TABS 1 pill every other day x 2 doses DIFLUCAN 150 MG TABS 769590 FLUCONAZOLE Inactive BACTRIM DS 800-160 MG TABS 1 pill by mouth twice daily BACTRIM DS 800-160 MG TABS 19820521 SULFAMETHOXAZOLE-TRIMETHOPRIM Inactive KEFLEX 500 MG CAP 1 po TID x 10 days KEFLEX 500 MG CAP 883417 CEPHALEXIN Inactive Advance Directives Directive Description Start [...] % 11.0-15.0 platelet count 443 THOUSAND/UL 10*3/mm3 408-415 2304/03/01 mean platelet volume 8.2 fL 7.5-12.5 leukocyte [...] % 11.0-15.0 platelet count 349 THOUSAND/UL 10*3/mm3 990-273 5332/04/12 mean platelet volume 8.4 fL 7.5-12.5 Lab [...] 369 10^3/MM^3 10*3/mm3 142-424 Lab Report: Chlamydia/GC APTIMA/18357 - Lab chlamydia DNA probe NOT DETECTED NOT DETECTED Lab Report: Chlamydia/GC APTIMA/13811 - Microbiology Neisseria gonorrhoeae DNA probe NOT DETECTED NOT DETECTED Lab Report: Chlamydia/GC APTIMA/41075, Urinalysis, Complete, with Reflex ... - Lab chlamydia DNA probe NOT DETECTED NOT DETECTED Lab Report: Chlamydia/GC APTIMA/23366, Urinalysis, Complete, with Reflex ... - Microbiology Neisseria gonorrhoeae DNA probe NOT DETECTED NOT DETECTED Lab Report: Chlamydia/GC APTIMA/32695, Urinalysis, Complete, with Reflex ... - Urinalysis microalbumin/total urine volume 2 mg/L Units converted. See lab report for original value. microalbumin/creatinine ratio, urine 9 MCG/MG CREAT mg/L <30 Lab Report: Comp. Metabolic Panel - Chemistry sodium, serum 140 mmol/L 028-024 3840/08/08 carbon dioxide, venous blood 33.7 mmol/L 21.0-32.0 potassium, serum 5.0 mmol/L 3.5-5.2 chloride, serum 103 mmol/L 98-107 blood glucose 80 mg/dL 65-110 urea nitrogen, blood 13 mg/dL 7-18 creatinine, serum 0.88 mg/dL 0.55-1.30 alanine aminotransferase (SGPT), serum 54 U/L 12-78 aspartate aminotransferase (SGOT), serum 29 U/L 15-37 calcium, serum 9.7 mg/dL 8.5-10.1 bilirubin, serum, total 0.30 mg/dL 0.00-1.00 sodium, serum 140 mmol/L 151-082 9306/06/28 carbon dioxide, venous blood 23.8 mmol/L 21.0-32.0 [...] 5.0-8.5 Encounters Code Encounter Date Provider Facility CPT-48767 Level 3 Est. [facility] 11:08:[address] [facility] Level 3 Est. Patient 15:55:20 CDT Suzan [facility] [place] CPT-62617 Level 4 Est. Patient 10:49:34 CDT Suzan [facility] [place] CPT-83482 Level 3 Est. Patient 10:00:25 CDT Suzan Boo [facility]-77741 Level 3 Est. Patient 10:29:30 CDT Suzan Boo [facility]-84836 Level 3 Est. Patient 11:04:38 CDT Renzo Jenn Norberto [facility]-13238 Level 3 Est. Patient 11:15:58 APPLIANCE REPAIR TECHNICIAN Renzo Jenn [facility] CPT-87732 Level 3 Est. Patient 15:28:23 APPLIANCE REPAIR TECHNICIAN Suzan Boo [facility]-33361 Level 4 Est. Patient 10:20:54 APPLIANCE REPAIR TECHNICIAN Suzan Boo [facility]-09890 Level 3 Est. Patient 11:47:37 APPLIANCE REPAIR TECHNICIAN Ahmet Carbajal MD [facility]-01285 Level 3 Est. Patient 10:40:11 APPLIANCE REPAIR TECHNICIAN Ahmet Carbajal MD [facility]-13198 Level 3 Est. Patient 15:07:06 APPLIANCE REPAIR TECHNICIAN Neeraj Collins MD [facility]-48836 Level 4 Est. Patient 14:45:00 APPLIANCE REPAIR TECHNICIAN Ahmet Carbajal MD [facility]-55277 Level 3 Est. Patient 13:59:59 CDT Luigi Martínez [facility]-13275 Level 3 Est. Patient 18:18:53 CDT Neeraj Collins MD [facility]-93333 Level 3 Est. Patient 15:50:44 CDT Vishal Hui MD [facility]-77359 Level 3 Est. Patient 11:36:17 CDT Ahmet Carbajal MD [facility]-26489 Level 3 Est. Patient 13:29:16 CDT Vishal Hui MD [facility]-94582 Level 3 Est. Patient 14:27:52 CDT Neeraj Collins MD [facility] CPT-54615 Level 3 Est. Patient 08:56:03 CDT Luigi Martínez [facility] CPT-42277 Level 4 Est. Patient 12:11:48 CDT Fabiola Johnson [facility] CPT-18637 Level 3 New Patient 16:53:37 CDT Albetr Caldera MD [facility] CPT-66884 Level 3 Est. Patient 11:25:49 CDT Renzo Thornton DO [facility] CPT-85760 Level 3 Est. Patient 15:22:01 CDT Ahmet Carbajal MD [facility] CPT-74390 Level 4 Est. Patient 09:00:51 APPLIANCE REPAIR TECHNICIAN Vishal Hui MD [facility] CPT-74993 Level 3 Est. Patient 11:37:33 APPLIANCE REPAIR TECHNICIAN Vishal Hui MD [facility] CPT-75741 Level 3 Est. Patient 08:41:09 APPLIANCE REPAIR TECHNICIAN Vishal Hui MD [facility] CPT-95597 Level 4 Est. Patient 10:19:35 APPLIANCE REPAIR TECHNICIAN Vishal Hui MD [facility] CPT-65650 Level 3 Est. Patient 13:35:45 CDT Vishal Hui MD [facility] CPT-18484 Level 4 Est. Patient 10:08:37 CDT Vishal Hui MD [facility] CPT-20376 Level 3 Est. Patient 11:22:10 CDT Vishal Hui MD [facility] CPT-58795 Level 3 Est. Patient 11:03:32 CDT Sahara Rodriguez MD PhD [facility] CPT-96166 Level 3 Est. Patient 09:41:35 CDT Vishal Hui MD [facility]-17462 Level 3 Est. Patient 12:00:41 CDT Neeraj Collins MD [facility] CPT-33735 Level 3 Est. Patient 09:16:24 CDT Vishal Hui MD [facility] CPT-10656 Level 4 Est. Patient 13:59:09 CDT Neeraj Collins MD [facility] CPT-79314 Level 3 Est. Patient 15:19:43 CDT Renzo Thornton [facility] CPT-12699 Level 3 Est. Patient 18:10:26 CDT Sahara Rodriguez MD [facility] CPT-02721 Level 3 Est. Patient 14:49:50 CDT Vishal Hui MD [facility] CPT-81380 Level 4 Est. Patient 18:41:46 CDT Neeraj Collins MD [facility] CPT-56199 Level 4 Est. Patient 09:18:38 APPLIANCE REPAIR TECHNICIAN Vishal Hui MD [facility] CPT-97382 Level 3 Est. Patient 14:43:55 APPLIANCE REPAIR TECHNICIAN Vishal Hui MD [facility] CPT-31869 Level 3 Est. Patient 15:26:33 APPLIANCE REPAIR TECHNICIAN Sahara Rodriguez MD [facility] CPT-48040 Level 3 Est. Patient 10:32:14 APPLIANCE REPAIR TECHNICIAN Vishal Hui MD [facility] CPT-66609 Level 3 Est. Patient 15:12:52 APPLIANCE REPAIR TECHNICIAN Vishal Hui MD [facility] CPT-04158 Level 4 Est. Patient 09:19:27 CDT Vishal Hui MD [facility] CPT-61685 Level 3 Est. Patient 15:53:00 CDT Renzo Thornton [facility] CPT-44928 Level 3 Est. Patient 15:50:30 CDT Renzo Thornton [facility] CPT-13875 Level 3 Est. Patient 16:55:24 CDT Vishal Hui MD [facility] Procedures Code Procedure Name Date Entry Date Standard Description CPT-07446 EKG Trac and Interp - XRAY USE ONLY 15:59:30 CDT 09/13 CPT-94593 Chest 1V Frontal - XRAY USE ONLY 15:59:30 CDT CPT-77553 Venipuncture Draw Fee 15:44:02 CDT CPT-30659 Venipuncture Draw Fee 08:41:12 CDT CPT-88314 Abd compl w upright - XRAY USE ONLY 10:27:59 CDT 06/28 CPT-01108 Smoking Cessation counseling 11:15:58 APPLIANCE REPAIR TECHNICIAN CPT-G0439 [facility] Annual Wellness Exam 09:30:58 APPLIANCE REPAIR TECHNICIAN CPT-22218 TSH - LAB USE ONLY 08:50:26 APPLIANCE REPAIR TECHNICIAN CPT-05049 CBC - LAB USE ONLY 08:50:26 APPLIANCE REPAIR TECHNICIAN CPT-97532 Venipuncture Draw Fee 08:50:26 APPLIANCE REPAIR TECHNICIAN CPT-09487 Abx/Therapy Injection 17:34:30 APPLIANCE REPAIR TECHNICIAN CPT-20215 Nexplanon Removal with Reinsertion 14:09:32 CDT CPT-J7307 Nexplanon (Implant) 14:09:32 CDT CPT-OV Office Visit 14:09:32 CDT CPT-90836 UA w micro - LAB USE ONLY 16:21:13 CDT CPT-94435 Wet Mount - LAB USE ONLY 16:21:13 CDT CPT-91583 First Vx - Ix admin for Medicare patients 14:37:47 CDT CPT-99552 Fluzone Preservative Free Intramuscular Suspension 14:37 :47 CDT CPT-67720 Abx/Therapy Injection 13:54:22 CDT CPT-97743 Abx/Therapy Injection 08:47:09 CDT CPT-25694 Abx/Therapy Injection 13:29:56 CDT CPT-31354 Abx/Therapy Injection 08:36:16 CDT CPT-56447 Wet Mount - LAB USE ONLY 17:44:58 CDT CPT-27127 UA w micro - LAB USE ONLY 17:44:58 CDT CPT-50756 CMP - LAB USE ONLY 17:44:58 CDT CPT-13553 Venipuncture Draw Fee 17:44:58 CDT CPT-24928 Cervical Min 4V - XRAY USE ONLY 09:01:40 CDT CPT-83536 Chest 2V Frontal and Lat - XRAY USE ONLY 11:06:31 CDT CPT-76155 EKG Trac and Interp - XRAY USE ONLY 11:31:43 CDT 08/26 CPT-J3420 Vitamin B12 1000mcg (Cyanocobalamin) 08:10:26 APPLIANCE REPAIR TECHNICIAN 04/12 CPT-30932 Abx/Therapy Injection 08:10:26 APPLIANCE REPAIR TECHNICIAN CPT-G0438 Initial Annual Wellness Exam 19:01:01 APPLIANCE REPAIR TECHNICIAN CPT-J3420 Vitamin B12 1000mcg (Cyanocobalamin) 16:57:46 CDT 08/14 CPT-89180 Recombivax HB Injection Suspension 5 MCG/0.5ML 08:37:50 APPLIANCE REPAIR TECHNICIAN CPT-13469 Immunization Single Admin 08:37:50 APPLIANCE REPAIR TECHNICIAN CPT-J3420 Vitamin B12 1000mcg (Cyanocobalamin) 08:32:16 APPLIANCE REPAIR TECHNICIAN 03/11 CPT-61900 Abx/Therapy Injection 08:32:16 APPLIANCE REPAIR TECHNICIAN CPT-13995 Chest 2V Frontal and Lat 11:46:38 APPLIANCE REPAIR TECHNICIAN CPT-16601 Venipuncture Draw Fee 09:12:45 APPLIANCE REPAIR TECHNICIAN CPT-J3420 Vitamin B12 1000mcg (Cyanocobalamin) 08:50:15 APPLIANCE REPAIR TECHNICIAN 02/08 CPT-48452 Abx/Therapy Injection 08:50:15 APPLIANCE REPAIR TECHNICIAN CPT-Cryo Cryotherapy 10:19:35 APPLIANCE REPAIR TECHNICIAN CPT-000 Give Appropriate Flu Vaccine 09:22:16 CDT CPT-J3420 Vitamin B12 1000mcg (Cyanocobalamin) 19:08:57 CDT 01/11 CPT-84067 Abx/Therapy Injection 19:08:57 CDT CPT-J3420 Vitamin B12 1000mcg (Cyanocobalamin) 08:19:08 CDT 12/11 CPT-10871 Abx/Therapy Injection 08:19:08 CDT CPT-J3420 Vitamin B12 1000mcg (Cyanocobalamin) 14:48:00 CDT 11/09 CPT-31261 Abx/Therapy Injection 14:47:59 CDT CPT-J3420 Vitamin B12 1000mcg (Cyanocobalamin) 08:34:04 CDT 10/09 CPT-05259 Abx/Therapy Injection 08:34:04 CDT CPT-J3420 Vitamin B12 1000mcg (Cyanocobalamin) 09:18:52 CDT 09/11 CPT-76179 Abx/Therapy Injection 09:18:52 CDT CPT-J3420 Vitamin B12 1000mcg (Cyanocobalamin) 08:35:44 CDT 09/04 CPT-95391 Abx/Therapy Injection 08:35:44 CDT CPT-08885 Immunization Single Admin 11:07:16 CDT CPT-91228 Hepatitis B adult IM 11:07:16 CDT CPT-J3420 Vitamin B12 1000mcg (Cyanocobalamin) 11:00:49 CDT 08/28 CPT-J1040 Depo Medrol 80 mg (Methyl Prednisolone Acetate) 11:00: 49 CDT CPT-53352 Abx/Therapy Injection 11:00:49 CDT CPT-J1040 Depo Medrol 80 mg (Methyl Prednisolone Acetate) 09:16: 23 CDT CPT-J3420 Vitamin B12 1000mcg (Cyanocobalamin) 08:27:05 CDT 08/20 CPT-57757 Abx/Therapy Injection 08:27:05 CDT CPT-86240 Recombivax HB Injection Suspension 5 MCG/0.5ML 10:00:41 CDT CPT-81336 Administration single or combination vaccine inc oral 10 :00:41 CDT CPT-61414 Sono transvag pelvis non OB uterus ovaries cervix 16:36: 57 CDT CPT-41565 LS spine comp w obliq 09:50:55 APPLIANCE REPAIR TECHNICIAN CPT-23057 Abd compl w upright 09:50:55 APPLIANCE REPAIR TECHNICIAN CPT-J1100 Decadron 4mg (Dexamethasone) 15:51:24 APPLIANCE REPAIR TECHNICIAN CPT-J1030 Depo Medrol 40 mg (Methyl Prednisolone Acetate) 15:51: 24 APPLIANCE REPAIR TECHNICIAN CPT-23457 Abx/Therapy Injection 15:51:24 APPLIANCE REPAIR TECHNICIAN CPT-J1100 Decadron 4mg (Dexamethasone) 15:26:33 APPLIANCE REPAIR TECHNICIAN CPT-J1030 Depo Medrol 40 mg (Methyl Prednisolone Acetate) 15:26: 33 APPLIANCE REPAIR TECHNICIAN CPT-10587 Sono retroperitoneal complete kidneys and bladder 17:15: 30 CDT CPT-53944 Abd compl w upright 16:09:25 CDT CPT-J1100 Decadron 8mg (Dexamethasone) 17:07:57 CDT CPT-56971 Abx/Therapy Injection 17:07:57 CDT CPT-J1100 Decadron 8mg (Dexamethasone) 16:55:24 CDT CPT-49334 Chest 2V Frontal and Lat 16:32:44 CDT
--- OUTSIDE RECORDS SUMMARY | 2016-11-04 12:37 | XMS REPORT | Clinical Summary ---
Author Author Admin, QIE Organization [employer] Address Unknown Phone Unavailable Allergies, Adverse Reactions, [...] specified Headache, atypical 784.0 Active Luigi Martínez INSPECTOR TOYS Headache Elevated blood glucose 790.29 Active Demetrius Madrid RN Other abnormal glucose Anxiety Disorder ICD-300.00 Inactive Vishal Hui MD Flank pain, right ICD-789.09 Inactive Vishal Hui MD G E R D ICD-530.81 Inactive Vishal Hui MD Pneumonia, organism unspecified ICD-486 Inactive Vishal Hui MD Smoker/tobacco use disorder-smoking cessation discussed ICD-305.1 Inactive Vishal Hui MD Abdominal pain ICD-789.00 Jim Hui MD Pelvic pain ICD-625.9 Jim Hui MD Abscess, skin ICD-682.9 Jim Hui MD Physical examination ICD-V70.0 Jim Hui MD Cellulitis ICD-682.9 Jim Hui MD Vaginitis ICD-616.10 Jim Hui MD Vaginitis, candidal ICD-112.1 Jim Hui MD Other abnormal blood chemistry ICD-790.6 Jmi Hui MD 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 Jim Hui [...] tab every 6 hours prn SUMATRIPTAN SUCCINATE 43241584888 Active Jillina Frazell INSPECTOR TOYS Active AMBIEN 5 MG ORAL TABS 1 tab at bedtime ZOLPIDEM TARTRATE 37895938609 Active Jillina Frazell INSPECTOR TOYS Active PROZAC 20 MG ORAL CAPS 1 tab daily FLUOXETINE HCL 22254245442 Active Jillina Frazell INSPECTOR TOYS Active ABILIFY 15 MG ORAL TABS 1 tab daily ARIPIPRAZOLE 61767424834 Active Jillina Frazell INSPECTOR TOYS Active MINIPRESS 2 MG CAPS 4 cap po at night PRAZOSIN HCL 99114220760 Active Jillina Frazell INSPECTOR TOYS Active TOPAMAX 50 MG ORAL TABS 1 tab twice daily TOPIRAMATE 46838265786 Active Jillina Frazell INSPECTOR TOYS Active SAPHRIS 5 MG SUBL 1 po bid ASENAPINE MALEATE 74327530409 No Longer Active Jillina Frazell INSPECTOR TOYS Active LATUDA 80 MG TABS Take one by mouth daily LURASIDONE HCL 30531638542 No Longer Active Jillina Frazell INSPECTOR TOYS Active AMLODIPINE BESYLATE 5 MG TABS 1 tablet by mouth daily AMLODIPINE BESYLATE 75083282274 No Longer Active Pacollina Johnl INSPECTOR TOYS Active AMITRIPTYLINE HCL 100 MG TAB one at hs AMITRIPTYLINE HCL 39813180978 No Longer Active Vishal Hui MD Active TRAZODONE HCL 100 MG TAB take 1 at bedtime TRAZODONE HCL 12906512478 No Longer Active Vishal Hui MD Active VYVANSE 40 MG CAPS 1 daily, LISDEXAMFETAMINE DIMESYLATE 32167395001 No Longer Active Vishal Hui MD Active IBUPROFEN 600 MG TAB 1 po TID PRN IBUPROFEN 90100290385 No Longer Active Vishal Hui MD Active MIRALAX PACK 1 po qd PRN Constipation POLYETHYLENE GLYCOL 3350 91215198099 Active Vishal Hui MD Active PROZAC 20 MG CAP Take one by mouth daily FLUOXETINE HCL 27637889859 No Longer Active Vishal Hui MD Active ZOFRAN 4 MG TABS 1 po q6hr PRN Nausea ONDANSETRON HCL Active Vishal Hui MD Active BACTRIM DS 800-160 MG TABS 1 pill by mouth twice daily SULFAMETHOXAZOLE-TRIMETHOPRIM 53208706880 No Longer Active Sahara Rodriguez MD PhD Active DIFLUCAN 150 MG TAB 1 tablet by mouth daily FLUCONAZOLE 70006665867 No Longer Active Vishal Hui MD Active TIZANIDINE HCL 4 MG TABS 1 po q6hr PRN Muscle Spasm/Back Pain TIZANIDINE HCL 88570081252 Active Vishal Hui MD Active CLINDAMYCIN HCL 150 MG CAPS 1 four times a day CLINDAMYCIN HCL 48060376298 No Longer Active Neeraj Collins MD Active KEFLEX 500 MG ORAL CAPS 1 cap QID by mouth CEPHALEXIN 13014436642 No Longer Active Neeraj Collins MD Active DIFLUCAN 150 MG TABS 1 pill every other day x 2 doses FLUCONAZOLE 46762943282 No Longer Active Sahara Rodriguez MD PhD Active MELATONIN 3 MG CAPS 2 po q hs MELATONIN 07505172609 No Longer Active Sahara Rodriguez MD PhD Active MULTIVITAMINS CAPS Take one by mouth daily MULTIPLE VITAMIN 80645700346 No Longer Active Sahara Rodriguez MD PhD Active BACTRIM DS 800-160 MG TAB 1 tab by mouth twice daily TRIMETHOPRIM-SULFAMETHOXAZOLE 98683151554 No Longer Active Sahara Rodriguez MD PhD Active [facility] PROBIOTIC ORAL CHEW 2 daily po PROBIOTIC PRODUCT 37123433499 No Longer Active Sahara Rodriguez MD PhD Active BACTRIM DS 800-160 MG TABS 1 po BID x 7 days SULFAMETHOXAZOLE-TRIMETHOPRIM 90616473564 No Longer Active Vishal Hui MD Active CHANTIX STARTING MONTH EARNEST 0.5 MG X 11 & 1 MG X 42 TABS 0.5mg daily for 3 days , then 0.5mg BID for 4 days, then 1mg BID VARENICLINE TARTRATE 79201603806 No Longer Active TAMARA Gray Active METOPROLOL TARTRATE 50 MG TAB 1 po bid METOPROLOL TARTRATE 45735264257 Active Vishal Hui MD Active VERAPAMIL HCL CR 120 MG TAB CR 1 po bid VERAPAMIL HCL 76498130731 No Longer Active Vishal Hui MD Active METOPROLOL SUCCINATE 50 MG TB24 1 tablet by mouth daily METOPROLOL SUCCINATE 94496693983 No Longer Active Vishal Hui MD Active TRAMADOL HCL 50 MG TABS 1-2 po TID PRN Pain TRAMADOL HCL 12634884633 Active Vishal Hui MD Active SAPHRIS 10 MG SUBL 1 tab po bid ASENAPINE MALEATE 27631751953 No Longer Active Vishal Hui MD Active LISINOPRIL 20 MG TABS 1 tab po qd LISINOPRIL 86266018511 No Longer Active Vishal Hui MD Active BENADRYL 25 MG CAP 2 po tid prn anxiety DIPHENHYDRAMINE HCL 66749491335 Active Vishal Hui MD Active LATUDA 20 MG TABS Take one by mouth daily LURASIDONE HCL 89160597618 No Longer Active Vishal Hui MD Active TRAZODONE HCL 50 MG TABS 1/2 tab po qd prn for anxiety TRAZODONE HCL 04240254368 No Longer Active Vishal Hui MD Active PIROXICAM 20 MG CAPS 1 cap po qd PRN Pain PIROXICAM 07072248923 Active Vishal Hui MD Active OMEPRAZOLE 20 MG TBEC 1 po q a.m. 30min prior to first food intake OMEPRAZOLE 19186399050 Active Vishal Hui MD Active RANITIDINE HCL 150 MG CAPS 1 twice a day RANITIDINE HCL 42835575062 Active Vishal Hui MD Active LINZESS 290 MCG CAPS Take one by mouth daily LINACLOTIDE 12395825479 No Longer Active Vishal Hui MD Active SAPHRIS 5 MG SUBL 1 tab po qd ASENAPINE MALEATE 45545773857 No Longer Active Vishal Hui MD Active ZALEPLON 10 MG CAPS 1 cap po every other night ZALEPLON 76007715455 No Longer Active Vishal Hui MD Active LYRICA 50 MG CAPS 1 tab po TID PREGABALIN 17501987771 No Longer Active Vishal Hui MD Active LORATADINE 10 MG TABS 1 tab po qd LORATADINE 14472109964 No Longer Active Vishal Hui MD Active VERAPAMIL HCL ER 180 MG CR-TABS 1 tab po bid VERAPAMIL HCL 56063171156 No Longer Active Vishal Hui MD Active MIRALAX POWD 1 capfull once daily POLYETHYLENE GLYCOL 3350 16100211228 No Longer Active Vishal Hui MD Active PREDNISONE 20 MG TABS 1 tab po qd PREDNISONE 42643657570 No Longer Active Renzo Thornton DO Active LEVOFLOXACIN 500 MG TABS 1 tab po qd LEVOFLOXACIN 07568974752 No Longer Active Renzo Thornton DO Active BUSPIRONE HCL 15 MG TABS 1 tab po TID BUSPIRONE HCL 62785199060 No Longer Active Renzo Thornton DO Active BENZTROPINE MESYLATE 1 MG TABS 1 tab po qd BENZTROPINE MESYLATE 63500760962 No Longer Active Renzo Thornotn DO Active ATENOLOL 25 MG TABS 1 tab po qd ATENOLOL 59899870826 No Longer Active Renzo Thornton DO Active ESCITALOPRAM OXALATE 20 MG TABS 1 tab po qd ESCITALOPRAM OXALATE 90733828664 No Longer Active Renzo Thornton DO Active ADVAIR DISKUS 250-50 MCG/DOSE AEPB 1 puff BID FLUTICASONE-SALMETEROL 34500116997 No Longer Active Renzo Thornton DO Active PREDNISONE 20 MG TAB 2 tabs daily for 3 days, 1 tab daily for 3 days, 1/2 tab daily for 2 days PREDNISONE 99794289796 No Longer Active Vishal Hui MD Active CEFDINIR 300 MG CAPS by mouth twice a day CEFDINIR 07204572496 No Longer Active Vishal Hui MD Active LANSOPRAZOLE 30 MG CPDR 1 cap po qd LANSOPRAZOLE 71592346653 No Longer Active Vishal Hui MD Active BACLOFEN 20 MG TABS 1 tab po tid BACLOFEN 38671040100 No Longer Active Vishal Hui MD Active ADVAIR DISKUS 250-50 MCG/DOSE AEPB 1 puff BID ADVAIR DISKUS 250-50 MCG/DOSE AEPB FLUTICASONE-SALMETEROL Inactive ESCITALOPRAM OXALATE 20 MG TABS 1 tab po qd ESCITALOPRAM OXALATE 20 MG TABS 703611 ESCITALOPRAM OXALATE Inactive ATENOLOL 25 MG TABS 1 tab po qd ATENOLOL 25 MG TABS 205828 ATENOLOL Inactive BENZTROPINE MESYLATE 1 MG TABS 1 tab po qd BENZTROPINE MESYLATE 1 MG TABS 898572 BENZTROPINE MESYLATE Inactive BUSPIRONE HCL 15 MG TABS 1 tab po TID BUSPIRONE HCL 15 MG TABS 188377 BUSPIRONE HCL Inactive LEVOFLOXACIN 500 MG TABS 1 tab po qd LEVOFLOXACIN 500 MG TABS 501366 LEVOFLOXACIN Inactive PREDNISONE 20 MG TABS 1 tab po qd PREDNISONE 20 MG TABS 784668 PREDNISONE Inactive MIRALAX POWD 1 capfull once daily MIRALAX POWD 965133 POLYETHYLENE GLYCOL 3350 Inactive VERAPAMIL HCL ER 180 MG CR-TABS 1 tab po bid VERAPAMIL HCL ER 180 MG CR-TABS VERAPAMIL HCL Inactive LORATADINE 10 MG TABS 1 tab po qd LORATADINE 10 MG TABS 328367 LORATADINE Inactive LYRICA 50 MG CAPS 1 tab po TID LYRICA 50 MG CAPS PREGABALIN Inactive ZALEPLON 10 MG CAPS 1 cap po every other night ZALEPLON 10 MG CAPS 695499 ZALEPLON Inactive SAPHRIS 5 MG SUBL 1 tab po qd SAPHRIS 5 MG SUBL ASENAPINE MALEATE Inactive TRAZODONE HCL 50 MG TABS 1/2 tab po qd prn for anxiety TRAZODONE HCL 50 MG TABS 535157 TRAZODONE HCL Inactive LATUDA 20 MG TABS Take one by mouth daily LATUDA 20 MG TABS LURASIDONE HCL Inactive LISINOPRIL 20 MG TABS 1 tab po qd LISINOPRIL 20 MG TABS 171394 LISINOPRIL Inactive SAPHRIS 10 MG SUBL 1 [...] twice daily BACTRIM DS 800-160 MG TAB 964103 TRIMETHOPRIM-SULFAMETHOXAZOLE Inactive MULTIVITAMINS CAPS Take one by mouth daily MULTIVITAMINS CAPS MULTIPLE VITAMIN Inactive MELATONIN 3 MG CAPS 2 po q hs MELATONIN 3 MG CAPS 19950526 MELATONIN Inactive KEFLEX 500 MG ORAL CAPS 1 cap QID by mouth KEFLEX 500 MG ORAL CAPS 871334 CEPHALEXIN Inactive CLINDAMYCIN HCL 150 MG CAPS 1 four times a day CLINDAMYCIN HCL 150 MG CAPS 138232 CLINDAMYCIN HCL Inactive DIFLUCAN 150 MG TAB 1 tablet by mouth daily DIFLUCAN 150 MG TAB 703877 FLUCONAZOLE Inactive PROZAC 20 MG CAP Take one by mouth daily PROZAC 20 MG CAP 107338 FLUOXETINE HCL Inactive IBUPROFEN 600 MG TAB 1 po TID PRN IBUPROFEN 600 MG TAB 157079 IBUPROFEN Inactive VYVANSE 40 MG CAPS 1 daily, VYVANSE 40 MG CAPS LISDEXAMFETAMINE DIMESYLATE Inactive TRAZODONE HCL 100 MG TAB take 1 at bedtime TRAZODONE HCL 100 MG TAB 205243 TRAZODONE HCL Inactive AMITRIPTYLINE HCL 100 MG TAB one at hs AMITRIPTYLINE HCL 100 MG TAB 107549 AMITRIPTYLINE HCL Inactive AMLODIPINE BESYLATE 5 MG TABS 1 tablet by mouth daily AMLODIPINE BESYLATE 5 MG TABS 055283 AMLODIPINE BESYLATE Inactive LATUDA 80 MG TABS Take one by mouth daily LATUDA 80 MG TABS LURASIDONE HCL Inactive SAPHRIS 5 MG SUBL 1 po bid SAPHRIS 5 MG SUBL ASENAPINE MALEATE Inactive CEFDINIR 300 MG CAPS by mouth twice a day CEFDINIR 300 MG CAPS 195005 CEFDINIR Inactive PREDNISONE 20 MG TAB 2 tabs daily for 3 days, 1 tab daily for 3 days, 1/2 tab daily for 2 days PREDNISONE 20 MG TAB 063581 PREDNISONE Inactive BACTRIM DS 800-160 MG TABS 1 po BID x 7 days BACTRIM DS 800-160 MG TABS 394863 SULFAMETHOXAZOLE-TRIMETHOPRIM Inactive DIFLUCAN 150 MG TABS 1 pill every other day x 2 doses DIFLUCAN 150 MG TABS 637560 FLUCONAZOLE Inactive BACTRIM DS 800-160 MG TABS 1 pill by mouth twice daily BACTRIM DS 800-160 MG TABS 396376 SULFAMETHOXAZOLE-TRIMETHOPRIM Inactive Vital Signs Date Name Value [...] Panel - Chemistry sodium, serum 139 mmol/L 737-165 5884/12/03 carbon dioxide, venous blood 28.5 mmol/L 21.0-32.0 [...] 5.5 % 4.3-6.0 cholesterol, serum 159 mg/dL 522-279 8106/12/03 triglyceride, serum, fasting 118 mg/dL 30-200 HDL [...] ... - Chemistry sodium, serum 140 mmol/L 819-154 9987/05/28 potassium, serum 4.2 mmol/L 3.5-5.2 chloride, serum [...] Panel - Chemistry sodium, serum 139 mmol/L 505-508 5787/12/22 carbon dioxide, venous blood 26.8 mmol/L 21.0-32.0 potassium, serum 4.2 mmol/L 3.5-5.2 chloride, serum 103 mmol/L 98-107 blood glucose 115 mg/dL 65-110 urea nitrogen, blood 20 mg/dL 7-18 creatinine, serum 0.90 mg/dL 0.55-1.30 alanine aminotransferase (SGPT), serum 38 U/L 12-78 aspartate aminotransferase (SGOT), serum 19 U/L 15-37 calcium, serum 8.6 mg/dL 8.5-10.1 bilirubin, serum, total 0.30 mg/dL 0.00-1.00 sodium, serum 141 mmol/L 253-629 2567 potassium, serum 4.3 mmol/L 3.5-5.2 chloride, serum [...] Rate - Chemistry sodium, serum 139 mmol/L 610-376 0642/12/11 carbon dioxide, venous blood 25.4 mmol/L 21.0-32.0 [...] Comp. Metabolic Panel, Lipid Panel - Chemistry urea nitrogen, blood 16 mg/dL 7-18 creatinine, serum 1.00 mg/dL 0.60-1.30 alanine aminotransferase (SGPT), serum 41 U/L 12-78 aspartate aminotransferase (SGOT), serum 17 U/L 15-37 calcium, serum 8.6 mg/dL 8.5-10.1 bilirubin, serum, total 0.30 mg/dL 0.00-1.00 cholesterol, serum 108 mg/dL 956-307 9258/12/31 triglyceride, serum, fasting 120 mg/dL 30-200 HDL cholesterol, serum 28 mg/dL 32-96 LDL cholesterol, serum 56 mg/dL 0-130 blood glucose 90 mg/dL 65-110 carbon dioxide, venous blood 24.3 mmol/L 21.0-32.0 chloride, serum 106 mmol/L 98-107 potassium, serum 4.8 mmol/L 3.5-5.2 sodium, serum 139 mmol/L 136-145 Lab Report: HGBA1C - Chemistry hemoglobin A1C, blood, as % of total hemoglobin 5.3 % 4.3-6.0 Lab Report: LH/Adult/615, FSH/Adult/470 - Chemistry follicle stimulating hormone, serum 5.8 m[iU]/mL luteinizing hormone, serum 2.7 m[iU]/mL Lab Report: MICROALBUMIN - Chemistry albumin/creatinine [...] 1.025 1.000-1.030 pH, urine, semiquantitative 6.0 5.0-8.5 pH, urine, semiquantitative 5.5 5.0-8.5 urine color Yellow Colorless;Lightyellow;Straw;Yellow appearance, urine Clear Clear specific gravity, urine 1.025 1.000-1.030 Lab Report: [place]/MICRO, [place] [facility] [place] human chorionic gonadotropin, urine, qualitative (urine test) Negative Negative protein, total urine random Negative mg/dL Negative RBC, urine, dipstick Negative Negative Lab Report: [place]ADIP W/MICRO, [place], [facility] [place]ysis urobilinogen, urine, semiquantitative (dipstick) 0.2 Normal leukocyte esterase, urine, by dipstick Negative Negative nitrite, urine, semiquantitative Negative Negative glucose, urine, semiquantitative Negative Negative appearance, urine Clear Clear specific gravity, urine 1.025 1.000-1.030 pH, urine, semiquantitative 7.0 5.0-8.5 urine color Yellow Colorless;Lightyellow;Straw;Yellow ketones, urine, by test strip Negative Negative bilirubin, urine Negative Negative Lab Report: Varicella-Zoater Inga IgG,IgM/79641, HEP Be Antibody/556, RUB ... - Serology rubella antibody, serum, IgG 2.88 Encounters Code Encounter Date Provider Facility CPT-97633 Level 3 Est. Patient 11:37:33 SAMPLE CHECKER Vishal Hui MD [facility] CPT-25223 Level 3 Est. Patient 08:41:09 SAMPLE CHECKER Vishal Hui MD [facility] CPT-75894 Level 4 Est. Patient 10:19:35 SAMPLE CHECKER Vishal Hui MD [facility] CPT-95515 Level 3 Est. Patient 13:35:45 CDT Vishal Hui MD [facility] CPT-38932 Level 4 Est. Patient 10:08:37 CDT Vishal Hui MD [facility] CPT-18562 Level 3 Est. Patient 11:22:10 CDT Vishal Hui MD [facility] CPT-30101 Level 3 Est. Patient 11:03:32 CDT Sahara Rodriguez MD [facility] CPT-12408 Level 3 Est. Patient 09:41:35 CDT Vishal Hui MD -13298 Level 3 Est. Patient 12:00:41 CDT Neeraj Collins MD [facility] CPT-88075 Level 3 Est. Patient 09:16:24 CDT Vishal Hui MD [facility] CPT-54161 Level 4 Est. Patient 13:59:09 CDT Neeraj Collins MD [facility] CPT-45220 Level 3 Est. Patient 15:19:43 CDT Renzo Thornton DO [facility] CPT-76163 Level 3 Est. Patient 18:10:26 CDT Sahara Rodriguez MD [facility]-68800 Level 3 Est. Patient 14:49:50 CDT Vishal Hui MD [facility] CPT-18523 Level 4 Est. Patient 18:41:46 CDT Neeraj Collins MD [facility]-23733 Level 4 Est. Patient 09:18:38 SAMPLE CHECKER Vishal Hui MD [facility] CPT-46770 Level 3 Est. Patient 14:43:55 SAMPLE CHECKER Vishal Hui MD [facility] CPT-43049 Level 3 Est. Patient 15:26:33 SAMPLE CHECKER Sahara Rodriguez MD PhD [facility] CPT-85969 Level 3 Est. Patient 10:32:14 SAMPLE CHECKER Vishal Hui MD [facility] CPT-48395 Level 3 Est. Patient 15:12:52 SAMPLE CHECKER Vishal Hui MD [facility] CPT-14881 Level 4 Est. Patient 09:19:27 CDT Vishal Hui MD [facility] CPT-07750 Level 3 Est. Patient 15:53:00 CDT Renzo Thornton [facility] CPT-50207 Level 3 Est. Patient 15:50:30 CDT Renzo Thornton [facility] CPT-62144 Level 3 Est. Patient 16:55:24 CDT Vishal Hui MD [facility] Procedures Code Procedure Name Date Entry Date Standard Description CPT-33346 Recombivax HB Injection Suspension 5 MCG/0.5ML 08:37:50 SAMPLE CHECKER CPT-99226 Immunization Single Admin 08:37:50 SAMPLE CHECKER CPT-J3420 Vitamin B12 1000mcg (Cyanocobalamin) 08:32:16 SAMPLE CHECKER 03/11 CPT-33176 Abx/Therapy Injection 08:32:16 SAMPLE CHECKER CPT-52390 Chest 2V Frontal and Lat 11:46:38 SAMPLE CHECKER CPT-13850 Venipuncture Draw Fee 09:12:45 SAMPLE CHECKER CPT-J3420 Vitamin B12 1000mcg (Cyanocobalamin) 08:50:15 SAMPLE CHECKER 02/08 CPT-31393 Abx/Therapy Injection 08:50:15 SAMPLE CHECKER CPT-Cryo Cryotherapy 10:19:35 SAMPLE CHECKER CPT-000 Give Appropriate Flu Vaccine 09:22:16 CDT CPT-J3420 Vitamin B12 1000mcg (Cyanocobalamin) 19:08:57 CDT 01/11 CPT-58734 Abx/Therapy Injection 19:08:57 CDT CPT-J3420 Vitamin B12 1000mcg (Cyanocobalamin) 08:19:08 CDT 12/11 CPT-97471 Abx/Therapy Injection 08:19:08 CDT CPT-J3420 Vitamin B12 1000mcg (Cyanocobalamin) 14:48:00 CDT 11/09 CPT-43692 Abx/Therapy Injection 14:47:59 CDT CPT-J3420 Vitamin B12 1000mcg (Cyanocobalamin) 08:34:04 CDT 10/09 CPT-93565 Abx/Therapy Injection 08:34:04 CDT CPT-J3420 Vitamin B12 1000mcg (Cyanocobalamin) 09:18:52 CDT 09/11 CPT-10802 Abx/Therapy Injection 09:18:52 CDT CPT-J3420 Vitamin B12 1000mcg (Cyanocobalamin) 08:35:44 CDT 09/04 CPT-59890 Abx/Therapy Injection 08:35:44 CDT CPT-19210 Immunization Single Admin 11:07:16 CDT CPT-78139 Hepatitis B adult IM 11:07:16 CDT CPT-J3420 Vitamin B12 1000mcg (Cyanocobalamin) 11:00:49 CDT 08/28 CPT-J1040 Depo Medrol 80 mg (Methyl Prednisolone Acetate) 11:00: 49 CDT CPT-66297 Abx/Therapy Injection 11:00:49 CDT CPT-J1040 Depo Medrol 80 mg (Methyl Prednisolone Acetate) 09:16: 23 CDT CPT-J3420 Vitamin B12 1000mcg (Cyanocobalamin) 08:27:05 CDT 08/20 CPT-31043 Abx/Therapy Injection 08:27:05 CDT CPT-78069 Recombivax HB Injection Suspension 5 MCG/0.5ML 10:00:41 CDT CPT-83180 Administration single or combination vaccine inc oral 10 :00:41 CDT CPT-17288 Sono transvag pelvis non OB uterus ovaries cervix 16:36: 57 CDT CPT-73539 LS spine comp w obliq 09:50:55 SAMPLE CHECKER CPT-27658 Abd compl w upright 09:50:55 SAMPLE CHECKER CPT-J1100 Decadron 4mg (Dexamethasone) 15:51:24 SAMPLE CHECKER CPT-J1030 Depo Medrol 40 mg (Methyl Prednisolone Acetate) 15:51: 24 SAMPLE CHECKER CPT-99572 Abx/Therapy Injection 15:51:24 SAMPLE CHECKER CPT-J1100 Decadron 4mg (Dexamethasone) 15:26:33 SAMPLE CHECKER CPT-J1030 Depo Medrol 40 mg (Methyl Prednisolone Acetate) 15:26: 33 SAMPLE CHECKER CPT-86523 Sono retroperitoneal complete kidneys and bladder 17:15: 30 CDT CPT-63078 Abd compl w upright 16:09:25 CDT CPT-J1100 Decadron 8mg (Dexamethasone) 17:07:57 CDT CPT-74332 Abx/Therapy Injection 17:07:57 CDT CPT-J1100 Decadron 8mg (Dexamethasone) 16:55:24 CDT CPT-64269 Chest 2V Frontal and Lat 16:32:44 CDT
--- OUTSIDE RECORDS SUMMARY | 2016-11-04 12:39 | XMS REPORT | Clinical Summary ---
Author Author Admin, E Organization [facility] Address Unknown Phone Unavailable Allergies, Adverse [...] breath Nocturnal hypoxia 799.02 Active Fabiola Johnson MEDICAL ASSISTANT CARDIOLOGY Hypoxemia Neck pain 723.1 Resolved Visahl Hui MD Cervicalgia Vaginal discharge 623.5 Resolved [...] general counseling and advice on contraceptive management Anxiety Disorder ICD-300.00 Inactive Vishal Hui MD [...] Encounter for removal of sutures ICD-V58.32 Jim Phillipslow MD Hot flashes ICD-627.2 Inactive Vishal Hui [...] day to help quit smoking VARENICLINE TARTRATE 47588942196 No Longer Active Dipika Burgos MD Active CHANTIX STARTING MONTH EARNEST 0.5 MG X 11 & 1 MG X 42 TABS take as directed 2015 VARENICLINE TARTRATE 37701780309 No Longer Active Dipika Burgos MD Active MONISTAT 7 COMBO PACK WOODROW 100 & 2 MG-% (9GM) VAG KIT 1 applicatorful per vagina q pm x 7 MICONAZOLE NITRATE 75554132697 Active Jillina Fradwightl MEDICAL ASSISTANT CARDIOLOGY Active FLAGYL 500 MG TAB 1 tablet by mouth bid METRONIDAZOLE 31141513968 Active Jillina Frazell MEDICAL ASSISTANT CARDIOLOGY Active TESSALON PERLES 100 MG CAP 1 to 2 tablets by mouth 3 times daily as needed for cough BENZONATATE 95063725726 No Longer Active Jillina Frazell MEDICAL ASSISTANT CARDIOLOGY Active ABILIFY MAINTENA 400 MG IM SUSR 400mg injection every 26 days ARIPIPRAZOLE 18858279404 Active Silvia Ervinum [employer]ISH [employer]ANG[employer]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 May repeat dose x 1 in 2 hours if needed SUMATRIPTAN SUCCINATE 62468743394 Active Vishal Hui MD Active OXYCODONE HCL ER 10 MG ORAL T12A 1/2 tab by mouth every 4 hours prn OXYCODONE HCL 72097238924 Active Neeraj Collins MD Active METHYLPREDNISOLONE 4 MG ORAL TABS po daily METHYLPREDNISOLONE 29192219151 Active Vishal Hui MD Active LEVOFLOXACIN 500 MG ORAL TABS po daily LEVOFLOXACIN 72337183026 Active Vishal Hui MD Active HYDROCODONE-ACETAMINOPHEN 5-325 MG TABS 1 to 2 four times a day as needed for pain use until can be seen by specialist HYDROCODONE- ACETAMINOPHEN 87665359051 No Longer Active Vishal Hui MD Active PROAIR HFA 108 (90 BASE) MCG/ACT AERS 2 puffs four times a day as needed 2015 ALBUTEROL SULFATE 31769821397 No Longer Active Vishal Hui MD Active PREDNISONE 20 MG TABS 2 daily for 5 days then 1 daily for 5 days PREDNISONE 29376071368 No Longer Active Vishal Hui MD Active ZITHROMAX Z-EARNETS 250 MG TABS 2 today and then 1 daily for 4 days AZITHROMYCIN 21990446885 No Longer Active Vishal Hui MD Active DICLOFENAC SODIUM 50 MG TBEC 1 tablet by mouth four times daily PRN Pain 2015 DICLOFENAC SODIUM 00988360290 Active Vishal Hui MD Active DICLOFENAC POTASSIUM TABS Take 1 tablet twice a day (pt. is not sure of the dose.) DICLOFENAC POTASSIUM TABS 94947138111 No Longer Active Vishal Hui MD Active VERAPAMIL HCL ER 120 MG ORAL CR-TABS Take 1 tablet by mouth twice a day. VERAPAMIL HCL 40569485592 Active Vishal Hui MD Active FLAGYL 500 MG TAB 1 tablet by mouth bid METRONIDAZOLE 53848778477 No Longer Active Vishal Hui MD Active FLUTICASONE PROPIONATE 50 MCG/ACT SUSP 2 sprays each nostril daily before bed. FLUTICASONE PROPIONATE 88716986114 Active Fabiola Johnson APRN Active ADZENYS XR-ODT 6.3 MG ORAL TBED 1 tab po daily for ADHD AMPHETAMINE 98280994317 Active Fabiola Johnson APRN Active BENADRYL 25 MG CAP 4 po at bedtime for insomnia DIPHENHYDRAMINE HCL 79973560108 Active Fabiola Johnson APRN Active KLONOPIN 1 MG ORAL TABS 1 tab po TID CLONAZEPAM 30552294188 Active Fabiola Johnson APRN Active VALIUM 5 MG TAB Take 1-2 tablets daily DIAZEPAM 90360592444 No Longer Active Fabiola Johnson APRN Active METOPROLOL TARTRATE 25 MG ORAL TABS 1/2 tablet twice daily for heart rate and blood pressure METOPROLOL TARTRATE 91882833280 No Longer Active Fabiola Johnson APRN Active MIRALAX ORAL POWD 17GMS DAILY IN WATER POLYETHYLENE GLYCOL 3350 87567048277 Active Vishal Hui MD Active VIIBRYD 10 MG ORAL TABS Take 1 tablet once a day VILAZODONE HCL 49702673062 Active Ahmet Carbajal MD Active MIRALAX PACK 1 po qd PRN Constipation POLYETHYLENE GLYCOL 3350 54578413559 No Longer Active Ahmet Carbajal MD Active MINIPRESS 2 MG CAPS 4 cap po at night PRAZOSIN HCL 74611758224 No Longer Active Ahmet Carbajal MD Active PIROXICAM 20 MG CAPS 1 cap po qd PRN Pain PIROXICAM 80729553029 No Longer Active Ahmet Carbajal MD Active TRAMADOL HCL 50 MG TABS 1-2 po TID PRN Pain TRAMADOL HCL 34717853025 No Longer Active Ahmet Carbajal MD Active METOPROLOL TARTRATE 50 MG TAB 1 po bid METOPROLOL TARTRATE 02324350812 No Longer Active Ahmet Carbajal MD Active ABILIFY 15 MG ORAL TABS 1 tab daily ARIPIPRAZOLE 62397203294 No Longer Active Ahmet Carbajal MD Active PROZAC 20 MG ORAL CAPS 1 tab daily FLUOXETINE HCL 33015558265 No Longer Active Ahmet Carbajal MD Active AMBIEN 5 MG ORAL TABS 1 tab at bedtime ZOLPIDEM TARTRATE 39993033628 No Longer Active Ahmet Carbajal MD Active PREDNISONE 20 MG TAB 2 tabs daily for 4 days, 1 tab daily for 4 days, 1/2 tab daily for 4 days PREDNISONE 38519711934 No Longer Active Ahmet Carbajal MD Active KEFLEX 500 MG CAP 1 po TID x 10 days CEPHALEXIN 91601737620 No Longer Active Vishal Hui MD Active TOPAMAX 50 MG ORAL TABS 1 tab twice daily TOPIRAMATE 44132807334 Active Vishal Hui MD Active SAPHRIS 5 MG SUBL 1 po bid ASENAPINE MALEATE 78675815045 No Longer Active Luigi Martínez APRN Active LATUDA 80 MG TABS Take one by mouth daily LURASIDONE HCL 82058083324 No Longer Active Luigi Martínez APRN Active AMLODIPINE BESYLATE 5 MG TABS 1 tablet by mouth daily AMLODIPINE BESYLATE 95365667806 No Longer Active Luigi Martínez APRN Active AMITRIPTYLINE HCL 100 MG TAB one at hs AMITRIPTYLINE HCL 88094221126 No Longer Active Vishal Hui MD Active TRAZODONE HCL 100 MG TAB take 1 at bedtime TRAZODONE HCL 50634627642 No Longer Active Vishal Hui MD Active VYVANSE 40 MG CAPS 1 daily, LISDEXAMFETAMINE DIMESYLATE 59814361739 No Longer Active Vishal Hui MD Active IBUPROFEN 600 MG TAB 1 po TID PRN IBUPROFEN 91512434338 No Longer Active Vishal Hui MD Active PROZAC 20 MG CAP Take one by mouth daily FLUOXETINE HCL 61185612624 No Longer Active Vishal Hui MD Active ZOFRAN 4 MG TABS 1 po q6hr PRN Nausea ONDANSETRON HCL Active Vishal Hui MD Active BACTRIM DS 800-160 MG TABS 1 pill by mouth twice daily SULFAMETHOXAZOLE-TRIMETHOPRIM 96642265567 No Longer Active Sahara Rodriguez MD PhD Active DIFLUCAN 150 MG TAB 1 tablet by mouth daily FLUCONAZOLE 65119199939 No Longer Active Vishal Hui MD Active TIZANIDINE HCL 4 MG TABS 1 po q6hr PRN Muscle Spasm/Back Pain TIZANIDINE HCL 69786238645 Active Vishal Hui MD Active CLINDAMYCIN HCL 150 MG CAPS 1 four times a day CLINDAMYCIN HCL 16132508865 No Longer Active Neeraj Collins MD Active KEFLEX 500 MG ORAL CAPS 1 cap QID by mouth CEPHALEXIN 83394108993 No Longer Active Neeraj Collins MD Active DIFLUCAN 150 MG TABS 1 pill every other day x 2 doses FLUCONAZOLE 38183223894 No Longer Active Sahara Rodriguez MD PhD Active MELATONIN 3 MG CAPS 2 po q hs MELATONIN 35869094897 No Longer Active Sahara Rodriguez MD PhD Active MULTIVITAMINS CAPS Take one by mouth daily MULTIPLE VITAMIN 34717411289 No Longer Active Sahara Rodriguez MD PhD Active BACTRIM DS 800-160 MG TAB 1 tab by mouth twice daily TRIMETHOPRIM-SULFAMETHOXAZOLE 94913926691 No Longer Active Sahara Rodriguez MD PhD Active [facility] PROBIOTIC ORAL CHEW 2 daily po PROBIOTIC PRODUCT 88632380489 No Longer Active Sahara Rodriguez MD PhD Active BACTRIM DS 800-160 MG TABS 1 po BID x 7 days SULFAMETHOXAZOLE-TRIMETHOPRIM 95726074266 No Longer Active Vishal Hui MD Active CHANTIX STARTING MONTH EARNEST 0.5 MG X 11 & 1 MG X 42 TABS 0.5mg daily for 3 days , then 0.5mg BID for 4 days, then 1mg BID VARENICLINE TARTRATE 00656236889 No Longer Active TAMARA Gray Active VERAPAMIL HCL CR 120 MG TAB CR 1 po bid VERAPAMIL HCL 05469851096 No Longer Active Vishal Hui MD Active METOPROLOL SUCCINATE 50 MG TB24 1 tablet by mouth daily METOPROLOL SUCCINATE 86995537531 No Longer Active Vishal Hui MD Active SAPHRIS 10 MG SUBL 1 tab po bid ASENAPINE MALEATE 61925873537 No Longer Active Vishal Hui MD Active LISINOPRIL 20 MG TABS 1 tab po qd LISINOPRIL 81042775880 No Longer Active Vishal Hui MD Active LATUDA 20 MG TABS Take one by mouth daily LURASIDONE HCL 96754327695 No Longer Active Vishal Hui MD Active TRAZODONE HCL 50 MG TABS 1/2 tab po qd prn for anxiety TRAZODONE HCL 65074442564 No Longer Active Vishal Hui MD Active OMEPRAZOLE 20 MG TBEC 1 po q a.m. 30min prior to first food intake OMEPRAZOLE 81889735766 Active Vishal Hui MD Active RANITIDINE HCL 150 MG CAPS 1 twice a day RANITIDINE HCL 96535725956 Active Jillina Messizelephraim MEDICAL ASSISTANT CARDIOLOGY Active LINZESS 290 MCG CAPS Take one by mouth daily LINACLOTIDE 70729366957 No Longer Active Vishal Hui MD Active SAPHRIS 5 MG SUBL 1 tab po qd ASENAPINE MALEATE 96657719834 No Longer Active Vishal Hui MD Active ZALEPLON 10 MG CAPS 1 cap po every other night ZALEPLON 68180796421 No Longer Active Vishal Hui MD Active LYRICA 50 MG CAPS 1 tab po TID PREGABALIN 37251352232 No Longer Active Vishal Hui MD Active LORATADINE 10 MG TABS 1 tab po qd LORATADINE 33017264869 No Longer Active Vishal Hui MD Active VERAPAMIL HCL ER 180 MG CR-TABS 1 tab po bid VERAPAMIL HCL 20416445051 No Longer Active Vishal Hui MD Active MIRALAX POWD 1 capfull once daily POLYETHYLENE GLYCOL 3350 26013082140 No Longer Active Vishal Hui MD Active PREDNISONE 20 MG TABS 1 tab po qd PREDNISONE 39849715133 No Longer Active Renzo Thornton DO Active LEVOFLOXACIN 500 MG TABS 1 tab po qd LEVOFLOXACIN 53138379500 No Longer Active Renzo Thornton DO Active BUSPIRONE HCL 15 MG TABS 1 tab po TID BUSPIRONE HCL 84457522867 No Longer Active Renzo Thornton DO Active BENZTROPINE MESYLATE 1 MG TABS 1 tab po qd BENZTROPINE MESYLATE 36841590261 No Longer Active Renzo Thornton DO Active ATENOLOL 25 MG TABS 1 tab po qd ATENOLOL 91971893489 No Longer Active Renzo Thornton DO Active ESCITALOPRAM OXALATE 20 MG TABS 1 tab po qd ESCITALOPRAM OXALATE 15395568808 No Longer Active Renzo Thornton DO Active ADVAIR DISKUS 250-50 MCG/DOSE AEPB 1 puff BID FLUTICASONE-SALMETEROL 56647637056 No Longer Active Renzo Thornton DO Active PREDNISONE 20 MG TAB 2 tabs daily for 3 days, 1 tab daily for 3 days, 1/2 tab daily for 2 days PREDNISONE 39331905427 No Longer Active Vihsal Hui MD Active CEFDINIR 300 MG CAPS by mouth twice a day CEFDINIR 98092901858 No Longer Active Vishal Hui MD Active LANSOPRAZOLE 30 MG CPDR 1 cap po qd LANSOPRAZOLE 29693270366 No Longer Active Vishal Hui MD Active BACLOFEN 20 MG TABS 1 tab po tid BACLOFEN 50580789217 No Longer Active Vishal Hui MD Active ADVAIR DISKUS 250-50 MCG/DOSE AEPB 1 puff BID ADVAIR DISKUS 250-50 MCG/DOSE AEPB FLUTICASONE-SALMETEROL Inactive ESCITALOPRAM OXALATE 20 MG TABS 1 tab po qd ESCITALOPRAM OXALATE 20 MG TABS 467743 ESCITALOPRAM OXALATE Inactive ATENOLOL 25 MG TABS 1 tab po qd ATENOLOL 25 MG TABS 357138 ATENOLOL Inactive BENZTROPINE MESYLATE 1 MG TABS 1 tab po qd BENZTROPINE MESYLATE 1 MG TABS 117583 BENZTROPINE MESYLATE Inactive BUSPIRONE HCL 15 MG TABS 1 tab po TID BUSPIRONE HCL 15 MG TABS 876511 BUSPIRONE HCL Inactive LEVOFLOXACIN 500 MG TABS 1 tab po qd LEVOFLOXACIN 500 MG TABS 051337 LEVOFLOXACIN Inactive PREDNISONE 20 MG TABS 1 tab po qd PREDNISONE 20 MG TABS 909889 PREDNISONE Inactive MIRALAX POWD 1 capfull once daily MIRALAX POWD 811022 POLYETHYLENE GLYCOL 3350 Inactive VERAPAMIL HCL ER 180 MG CR-TABS 1 tab po bid VERAPAMIL HCL ER 180 MG CR-TABS VERAPAMIL HCL Inactive LORATADINE 10 MG TABS 1 tab po qd LORATADINE 10 MG TABS 248531 LORATADINE Inactive LYRICA 50 MG CAPS 1 tab po TID LYRICA 50 MG CAPS PREGABALIN Inactive ZALEPLON 10 MG CAPS 1 cap po every other night ZALEPLON 10 MG CAPS 589307 ZALEPLON Inactive SAPHRIS 5 MG SUBL 1 tab po qd SAPHRIS 5 MG SUBL ASENAPINE MALEATE Inactive TRAZODONE HCL 50 MG TABS 1/2 tab po qd prn for anxiety TRAZODONE HCL 50 MG TABS 488165 TRAZODONE HCL Inactive LATUDA 20 MG TABS Take one by mouth daily LATUDA 20 MG TABS LURASIDONE HCL Inactive LISINOPRIL 20 MG TABS 1 tab po qd LISINOPRIL 20 MG TABS 038324 LISINOPRIL Inactive SAPHRIS 10 MG SUBL 1 [...] twice daily BACTRIM DS 800-160 MG TAB 786690 TRIMETHOPRIM-SULFAMETHOXAZOLE Inactive MULTIVITAMINS CAPS Take one by mouth daily MULTIVITAMINS CAPS MULTIPLE VITAMIN Inactive MELATONIN 3 MG CAPS 2 po q hs MELATONIN 3 MG CAPS 951142 MELATONIN Inactive KEFLEX 500 MG ORAL CAPS 1 cap QID by mouth KEFLEX 500 MG ORAL CAPS 133310 CEPHALEXIN Inactive CLINDAMYCIN HCL 150 MG CAPS 1 four times a day CLINDAMYCIN HCL 150 MG CAPS 511287 CLINDAMYCIN HCL Inactive DIFLUCAN 150 MG TAB 1 tablet by mouth daily DIFLUCAN 150 MG TAB 697476 FLUCONAZOLE Inactive PROZAC 20 MG CAP Take one by mouth daily PROZAC 20 MG CAP 034272 FLUOXETINE HCL Inactive IBUPROFEN 600 MG TAB 1 po TID PRN IBUPROFEN 600 MG TAB 348588 IBUPROFEN Inactive VYVANSE 40 MG CAPS 1 daily, VYVANSE 40 MG CAPS LISDEXAMFETAMINE DIMESYLATE Inactive TRAZODONE HCL 100 MG TAB take 1 at bedtime TRAZODONE HCL 100 MG TAB 855976 TRAZODONE HCL Inactive AMITRIPTYLINE HCL 100 MG TAB one at hs AMITRIPTYLINE HCL 100 MG TAB 860522 AMITRIPTYLINE HCL Inactive AMLODIPINE BESYLATE 5 MG TABS 1 tablet by mouth daily AMLODIPINE BESYLATE 5 MG TABS 510760 AMLODIPINE BESYLATE Inactive LATUDA 80 MG TABS Take one by mouth daily LATUDA 80 MG TABS LURASIDONE HCL Inactive SAPHRIS 5 MG SUBL 1 po bid SAPHRIS 5 MG SUBL ASENAPINE MALEATE Inactive PREDNISONE 20 MG TAB 2 tabs daily for 4 days, 1 tab daily for 4 days, 1/2 tab daily for 4 days PREDNISONE 20 MG TAB 681998 PREDNISONE Inactive AMBIEN 5 MG ORAL TABS 1 tab at bedtime AMBIEN 5 MG ORAL TABS 438016 ZOLPIDEM TARTRATE Inactive PROZAC 20 MG ORAL CAPS 1 tab daily PROZAC 20 MG ORAL CAPS 714081 FLUOXETINE HCL Inactive ABILIFY 15 MG ORAL TABS 1 tab daily ABILIFY 15 MG ORAL TABS 154104 ARIPIPRAZOLE Inactive METOPROLOL TARTRATE 50 MG TAB 1 po bid METOPROLOL TARTRATE 50 MG TAB 733141 METOPROLOL TARTRATE Inactive TRAMADOL HCL 50 MG TABS 1-2 po TID PRN Pain TRAMADOL HCL 50 MG TABS 402336 TRAMADOL HCL Inactive PIROXICAM 20 MG CAPS 1 cap po qd PRN Pain PIROXICAM 20 MG CAPS 145226 PIROXICAM Inactive MINIPRESS 2 MG CAPS 4 cap po at night MINIPRESS 2 MG CAPS 921601 PRAZOSIN HCL Inactive MIRALAX PACK 1 po qd PRN Constipation MIRALAX PACK 302403 POLYETHYLENE GLYCOL 3350 Inactive METOPROLOL TARTRATE 25 MG ORAL TABS 1/2 tablet twice daily for heart rate and blood pressure METOPROLOL TARTRATE 25 MG ORAL TABS 836016 METOPROLOL TARTRATE Inactive VALIUM 5 MG TAB Take 1-2 tablets daily VALIUM 5 MG TAB 116743 DIAZEPAM Inactive FLAGYL 500 MG TAB 1 tablet by mouth bid FLAGYL 500 MG TAB 624623 METRONIDAZOLE Inactive DICLOFENAC POTASSIUM TABS Take 1 tablet twice a day (pt. is not sure of the dose.) DICLOFENAC POTASSIUM TABS DICLOFENAC POTASSIUM TABS Inactive ZITHROMAX Z-EARNEST 250 MG TABS 2 today and then 1 daily for 4 days ZITHROMAX Z-EARNEST 250 MG TABS 0197388 AZITHROMYCIN Inactive PREDNISONE 20 MG TABS 2 daily for 5 days then 1 daily for 5 days PREDNISONE 20 MG TABS 715914 PREDNISONE Inactive PROAIR HFA 108 (90 BASE) MCG/ACT AERS 2 puffs four times a day as needed 2015 PROAIR HFA 108 (90 BASE) MCG/ACT AERS ALBUTEROL SULFATE Inactive HYDROCODONE-ACETAMINOPHEN 5-325 MG TABS 1 to 2 four times a day as needed for pain use until can be seen by specialist HYDROCODONE- ACETAMINOPHEN 5-325 MG TABS 628229 HYDROCODONE-ACETAMINOPHEN Inactive TESSALON PERLES 100 MG CAP 1 to 2 tablets by mouth 3 times daily as needed for cough TESSALON PERLES 100 MG CAP 887193 BENZONATATE Inactive CHANTIX STARTING MONTH EARNEST 0.5 [...] twice a day CEFDINIR 300 MG CAPS 404996 CEFDINIR Inactive PREDNISONE 20 MG TAB 2 tabs daily for 3 days, 1 tab daily for 3 days, 1/2 tab daily for 2 days PREDNISONE 20 MG TAB 926816 PREDNISONE Inactive BACTRIM DS 800-160 MG TABS [...] x 10 days KEFLEX 500 MG CAP 836788 CEPHALEXIN Inactive Advance Directives Directive Description Start [...] E&M - 3141-9 286.5 [lb_av] Weight Measured Diagnostic Results Date Name [...] % 11.6-14.8 platelet count 394 10^3/MM^3 10*3/mm3 775-060 1722/01/11 leukocyte count, blood 13.8 10^3/MM^3 10*3/mm3 4.6-10.2 [...] Panel - Chemistry sodium, serum 139 mmol/L 345-184 1927/12/03 carbon dioxide, venous blood 28.5 mmol/L 21.0-32.0 [...] 5.5 % 4.3-6.0 cholesterol, serum 159 mg/dL 166-473 2465/12/03 triglyceride, serum, fasting 118 mg/dL 30-200 HDL [...] 362 10^3/MM^3 10*3/mm3 142-424 Lab Report: Chlamydia/GC APTIMA/[id number] - Lab chlamydia DNA probe NOT DETECTED NOT DETECTED Lab Report: Chlamydia/GC APTIMA/16671 - Microbiology Neisseria gonorrhoeae DNA probe NOT DETECTED NOT DETECTED Lab Report: Comp. Metabolic Panel - Chemistry sodium, serum 140 mmol/L 561-849 9587/08/08 carbon dioxide, venous blood 33.7 mmol/L 21.0-32.0 potassium, serum 5.0 mmol/L 3.5-5.2 chloride, serum 103 mmol/L 98-107 blood glucose 80 mg/dL 65-110 urea nitrogen, blood 13 mg/dL 7-18 creatinine, serum 0.88 mg/dL 0.55-1.30 alanine aminotransferase (SGPT), serum 54 U/L 12-78 aspartate aminotransferase (SGOT), serum 29 U/L 15-37 calcium, serum 9.7 mg/dL 8.5-10.1 bilirubin, serum, total 0.30 mg/dL 0.00-1.00 sodium, serum 139 mmol/L 540-170 3497/12/22 carbon dioxide, venous blood 26.8 mmol/L 21.0-32.0 potassium, serum 4.2 mmol/L 3.5-5.2 chloride, serum 103 mmol/L 98-107 blood glucose 115 mg/dL 65-110 urea nitrogen, blood 20 mg/dL 7-18 creatinine, serum 0.90 mg/dL 0.55-1.30 alanine aminotransferase (SGPT), serum 38 U/L aspartate aminotransferase (SGOT), serum 19 U/L 15-37 calcium, serum 8.6 mg/dL 8.5-10.1 bilirubin, serum, total 0.30 mg/dL 0.00-1.00 sodium, serum 139 mmol/L 737-210 3643/01/11 carbon dioxide, venous blood 26.6 mmol/L 21.0-32.0 potassium, serum 4.1 mmol/L 3.5-5.2 chloride, serum 100 mmol/L 98-107 blood glucose 86 mg/dL 65-110 urea nitrogen, blood 16 mg/dL 7-18 creatinine, serum 1.00 mg/dL 0.55-1.30 alanine aminotransferase (SGPT), serum 48 U/L aspartate aminotransferase (SGOT), serum 17 U/L 15-37 calcium, serum 9.1 mg/dL 8.5-10.1 bilirubin, serum, total 0.40 mg/dL 0.00-1.00 sodium, serum 142 mmol/L 431-350 1706/06/08 carbon dioxide, venous blood 27.6 mmol/L 21.0-32.0 [...] Rate - Chemistry sodium, serum 139 mmol/L 333-589 3642/12/11 carbon dioxide, venous blood 25.4 mmol/L 21.0-32.0 [...] mg/dL Encounters Code Encounter Date Provider Facility CPT-32466 Level 3 Est. Patient 13:59:59 CDT Luiig Martínez APRN [facility] CPT-87638 Level 3 Est. Patient 18:18:53 CDT Neeraj Collins MD [facility] CPT-86686 Level 3 Est. Patient 15:50:44 CDT Vishal Hui MD [facility] CPT-80675 Level 3 Est. Patient 11:36:17 CDT Ahmet Carbajal MD [facility] CPT-98749 Level 3 Est. Patient 13:29:16 CDT Vishal Hui MD [facility] CPT-76300 Level 3 Est. Patient 14:27:52 CDT Neeraj Collins MD [facility] CPT-82661 Level 3 Est. Patient 08:56:03 CDT Luigi Martínez [facility] CPT-10728 Level 4 Est. Patient 12:11:48 CDT Fabiola Johnson [facility] CPT-85201 Level 3 New Patient 16:53:37 CDT Albert Caldera MD [facility] CPT-15479 Level 3 Est. Patient 11:25:49 CDT Renzo Thornton DO [facility] CPT-10709 Level 3 Est. Patient 15:22:01 CDT Ahmet Carbajal MD [facility] CPT-10813 Level 4 Est. Patient 09:00:51 COMPANY DRIVER Vishal Hui MD [facility] CPT-64438 Level 3 Est. Patient 11:37:33 COMPANY DRIVER Vishal Hui MD [facility] CPT-40242 Level 3 Est. Patient 08:41:09 COMPANY DRIVER Vishal Hui MD [facility] CPT-32287 Level 4 Est. Patient 10:19:35 COMPANY DRIVER Vishal Hui MD [facility] CPT-27277 Level 3 Est. Patient 13:35:45 CDT Vishal Hui MD [facility] CPT-69188 Level 4 Est. Patient 10:08:37 CDT Vishal Hui MD [facility] CPT-72950 Level 3 Est. Patient 11:22:10 CDT Vishal Hui MD [facility] CPT-55497 Level 3 Est. Patient 11:03:32 CDT Sahara Rodriguez MD [facility] CPT-86997 Level 3 Est. Patient 09:41:35 CDT Vishal Hui MD [facility]-49309 Level 3 Est. Patient 12:00:41 CDT Neeraj Collins MD [facility] CPT-52324 Level 3 Est. Patient 09:16:24 CDT Vishal Hui MD [facility] CPT-31713 Level 4 Est. Patient 13:59:09 CDT Neeraj Collins MD [facility]-49413 Level 3 Est. Patient 15:19:43 CDT Renzo Thornton DO [facility] CPT-53840 Level 3 Est. Patient 18:10:26 CDT Sahara Rodriguez MD [facility]-53243 Level 3 Est. Patient 14:49:50 CDT Vishal Hui MD [facility] CPT-08557 Level 4 Est. Patient 18:41:46 CDT Neeraj Collins MD [facility]-51765 Level 4 Est. Patient 09:18:38 COMPANY DRIVER Vishal Hui MD [facility] CPT-16853 Level 3 Est. Patient 14:43:55 COMPANY DRIVER Vishal Hui MD [facility] CPT-06682 Level 3 Est. Patient 15:26:33 COMPANY DRIVER Sahara Rodriguez MD [facility] CPT-16953 Level 3 Est. Patient 10:32:14 COMPANY DRIVER Vishal Hui MD [facility]-48401 Level 3 Est. Patient 15:12:52 COMPANY DRIVER Vishal Hui MD [facility] CPT-88695 Level 4 Est. Patient 09:19:27 CDT Vishal Hui MD [facility] CPT-21580 Level 3 Est. Patient 15:53:00 CDT Renzo Thornton [facility] CPT-05342 Level 3 Est. Patient 15:50:30 CDT Renzo Thornton [facility] CPT-36338 Level 3 Est. Patient 16:55:24 CDT Vishal Hui MD [facility] Procedures Code Procedure Name Date Entry Date Standard Description CPT-48313 Abx/Therapy Injection 17:34:30 COMPANY DRIVER CPT-25429 Nexplanon Removal with Reinsertion 14:09:32 CDT CPT-J7307 Nexplanon (Implant) 14:09:32 CDT CPT-OV Office Visit 14:09:32 CDT CPT-39366 UA w micro - LAB USE ONLY 16:21:13 CDT CPT-19032 Wet Mount - LAB USE ONLY 16:21:13 CDT CPT-98833 First Vx - Ix admin for Medicare patients 14:37:47 CDT CPT-87119 Fluzone Preservative Free Intramuscular Suspension 14:37 :47 CDT CPT-39475 Abx/Therapy Injection 13:54:22 CDT CPT-17995 Abx/Therapy Injection 08:47:09 CDT CPT-55348 Abx/Therapy Injection 13:29:56 CDT CPT-70918 Abx/Therapy Injection 08:36:16 CDT CPT-09912 Wet Mount - LAB USE ONLY 17:44:58 CDT CPT-55960 UA w micro - LAB USE ONLY 17:44:58 CDT CPT-53659 CMP - LAB USE ONLY 17:44:58 CDT CPT-10757 Venipuncture Draw Fee 17:44:58 CDT CPT-99374 Cervical Min 4V - XRAY USE ONLY 09:01:40 CDT CPT-87134 Chest 2V Frontal and Lat - XRAY USE ONLY 11:06:31 CDT CPT-18548 EKG Trac and Interp - XRAY USE ONLY 11:31:43 CDT 08/26 CPT-J3420 Vitamin B12 1000mcg (Cyanocobalamin) 08:10:26 COMPANY DRIVER 04/12 CPT-42682 Abx/Therapy Injection 08:10:26 COMPANY DRIVER CPT-G0438 Initial Annual Wellness Exam 19:01:01 COMPANY DRIVER CPT-J3420 Vitamin B12 1000mcg (Cyanocobalamin) 16:57:46 CDT 08/14 CPT-13836 Recombivax HB Injection Suspension 5 MCG/0.5ML 08:37:50 COMPANY DRIVER CPT-54625 Immunization Single Admin 08:37:50 COMPANY DRIVER CPT-J3420 Vitamin B12 1000mcg (Cyanocobalamin) 08:32:16 COMPANY DRIVER 03/11 CPT-70204 Abx/Therapy Injection 08:32:16 COMPANY DRIVER CPT-94141 Chest 2V Frontal and Lat 11:46:38 COMPANY DRIVER CPT-82998 Venipuncture Draw Fee 09:12:45 COMPANY DRIVER CPT-J3420 Vitamin B12 1000mcg (Cyanocobalamin) 08:50:15 COMPANY DRIVER 02/08 CPT-30094 Abx/Therapy Injection 08:50:15 COMPANY DRIVER CPT-Cryo Cryotherapy 10:19:35 COMPANY DRIVER CPT-000 Give Appropriate Flu Vaccine 09:22:16 CDT CPT-J3420 Vitamin B12 1000mcg (Cyanocobalamin) 19:08:57 CDT 01/11 CPT-37871 Abx/Therapy Injection 19:08:57 CDT CPT-J3420 Vitamin B12 1000mcg (Cyanocobalamin) 08:19:08 CDT 12/11 CPT-25772 Abx/Therapy Injection 08:19:08 CDT CPT-J3420 Vitamin B12 1000mcg (Cyanocobalamin) 14:48:00 CDT 11/09 CPT-87149 Abx/Therapy Injection 14:47:59 CDT CPT-J3420 Vitamin B12 1000mcg (Cyanocobalamin) 08:34:04 CDT 10/09 CPT-20850 Abx/Therapy Injection 08:34:04 CDT CPT-J3420 Vitamin B12 1000mcg (Cyanocobalamin) 09:18:52 CDT 09/11 CPT-59484 Abx/Therapy Injection 09:18:52 CDT CPT-J3420 Vitamin B12 1000mcg (Cyanocobalamin) 08:35:44 CDT 09/04 CPT-66438 Abx/Therapy Injection 08:35:44 CDT CPT-57456 Immunization Single Admin 11:07:16 CDT CPT-61460 Hepatitis B adult IM 11:07:16 CDT CPT-J3420 Vitamin B12 1000mcg (Cyanocobalamin) 11:00:49 CDT 08/28 CPT-J1040 Depo Medrol 80 mg (Methyl Prednisolone Acetate) 11:00: 49 CDT CPT-04558 Abx/Therapy Injection 11:00:49 CDT CPT-J1040 Depo Medrol 80 mg (Methyl Prednisolone Acetate) 09:16: 23 CDT CPT-J3420 Vitamin B12 1000mcg (Cyanocobalamin) 08:27:05 CDT 08/20 CPT-11525 Abx/Therapy Injection 08:27:05 CDT CPT-68693 Recombivax HB Injection Suspension 5 MCG/0.5ML 10:00:41 CDT CPT-64443 Administration single or combination vaccine inc oral 10 :00:41 CDT CPT-22207 Sono transvag pelvis non OB uterus ovaries cervix 16:36: 57 CDT CPT-83126 LS spine comp w obliq 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 CPT-14096 Abd compl w upright 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 CPT-J1100 Decadron 4mg (Dexamethasone) 15:51:24 COMPANY DRIVER CPT-J1030 Depo Medrol 40 mg (Methyl Prednisolone Acetate) 15:51: 24 COMPANY DRIVER CPT-65498 Abx/Therapy Injection 15:51:24 COMPANY DRIVER CPT-J1100 Decadron 4mg (Dexamethasone) 15:26:33 COMPANY DRIVER CPT-J1030 Depo Medrol 40 mg (Methyl Prednisolone Acetate) 15:26: 33 COMPANY DRIVER CPT-96097 Sono retroperitoneal complete kidneys and bladder 17:15: 30 CDT CPT-53418 Abd compl w upright 16:09:25 CDT CPT-J1100 Decadron 8mg (Dexamethasone) 17:07:57 CDT CPT-01475 Abx/Therapy Injection 17:07:57 CDT CPT-J1100 Decadron 8mg (Dexamethasone) 16:55:24 CDT CPT-36525 Chest 2V Frontal and Lat 16:32:44 CDT
--- OUTSIDE RECORDS SUMMARY | 2016-11-04 12:41 | XMS REPORT | Clinical Summary ---
Author Author Admin, E Organization [facility] [place] Address Unknown Phone Unavailable Allergies, Adverse Reactions, [...] Smoker/tobacco use disorder-smoking cessation discussed 305.1 Resolved Vsihal Hui MD Tobacco use disorder Abdominal pain [...] specified Headache, atypical 784.0 Active Luigi Martínez [employer]ER Headache Elevated blood glucose 790.29 Active Demetrius Madrid RN Other abnormal glucose Anxiety Disorder ICD-300.00 Inactive Vishal Hui MD Pneumonia, organism unspecified ICD-486 Inactive Vishal Hui MD Flank pain, right ICD-789.09 Inactive Vishal Hui MD G E R D ICD-530.81 Inactive Vishal Hui MD Smoker/tobacco use disorder-smoking cessation discussed ICD-305.1 Inactive Vishal Hui MD Abdominal pain ICD-789.00 Jim Hui MD Cellulitis ICD-682.9 Jim Hui [...] removal of sutures ICD-V58.32 Jim Hui MD Medication List Medication Instructions Start Date Stop Date Generic Name NDC Status Provider Patient Instruction IMITREX 50 MG ORAL TABS 1/2 tab every 6 hours prn SUMATRIPTAN SUCCINATE 22156091139 Active Jillina Frazell [employer] Active AMBIEN 5 MG ORAL TABS 1 tab at bedtime ZOLPIDEM TARTRATE 67934237302 Active Jillina Frazell [employer] Active PROZAC 20 MG ORAL CAPS 1 tab daily FLUOXETINE HCL 99755454310 Active Jillina Frazell [employer] Active ABILIFY 15 MG ORAL TABS 1 tab daily ARIPIPRAZOLE 03345476189 Active Jillina Frazell [employer] Active MINIPRESS 2 MG CAPS 4 cap po at night PRAZOSIN HCL 00367277636 Active Jillina Frazell [employer] Active TOPAMAX 50 MG ORAL TABS 1 tab twice daily TOPIRAMATE 83611033692 Active Jillina Frazell [employer] Active SAPHRIS 5 MG SUBL 1 po bid ASENAPINE MALEATE 83597458962 No Longer Active Pacollina Frazell [employer] Active LATUDA 80 MG TABS Take one by mouth daily LURASIDONE HCL 19891576235 No Longer Active Pacollina Johnl [employer] Active AMLODIPINE BESYLATE 5 MG TABS 1 tablet by mouth daily AMLODIPINE BESYLATE 54883725444 No Longer Active Tataina Johnl [employer] Active AMITRIPTYLINE HCL 100 MG TAB one at hs AMITRIPTYLINE HCL 00345469776 No Longer Active Vishal Hui MD Active TRAZODONE HCL 100 MG TAB take 1 at bedtime TRAZODONE HCL 40537192563 No Longer Active Vishal Hui MD Active VYVANSE 40 MG CAPS 1 daily, LISDEXAMFETAMINE DIMESYLATE 10473453357 No Longer Active Vishal Hui MD Active IBUPROFEN 600 MG TAB 1 po TID PRN IBUPROFEN 14268878348 No Longer Active Vishal Hui MD Active MIRALAX PACK 1 po qd PRN Constipation POLYETHYLENE GLYCOL 3350 05019727782 Active Vishal Hui MD Active PROZAC 20 MG CAP Take one by mouth daily FLUOXETINE HCL 37061759653 No Longer Active Vishal Hui MD Active ZOFRAN 4 MG TABS 1 po q6hr PRN Nausea ONDANSETRON HCL Active Vishal Hui MD Active BACTRIM DS 800-160 MG TABS 1 pill by mouth twice daily SULFAMETHOXAZOLE-TRIMETHOPRIM 66605867904 No Longer Active Sahara Rodriguez MD PhD Active DIFLUCAN 150 MG TAB 1 tablet by mouth daily FLUCONAZOLE 01578645744 No Longer Active Vishal Hui MD Active TIZANIDINE HCL 4 MG TABS 1 po q6hr PRN Muscle Spasm/Back Pain TIZANIDINE HCL 77348679263 Active Vishal Hui MD Active CLINDAMYCIN HCL 150 MG CAPS 1 four times a day CLINDAMYCIN HCL 69554825571 No Longer Active Neeraj Collins MD Active KEFLEX 500 MG ORAL CAPS 1 cap QID by mouth CEPHALEXIN 38979454904 No Longer Active Neeraj Collins MD Active DIFLUCAN 150 MG TABS 1 pill every other day x 2 doses FLUCONAZOLE 63863694711 No Longer Active Sahara Rodriguez MD PhD Active MELATONIN 3 MG CAPS 2 po q hs MELATONIN 64117204528 No Longer Active Sahara Rodriguez MD PhD Active MULTIVITAMINS CAPS Take one by mouth daily MULTIPLE VITAMIN 63649634624 No Longer Active Sahara Rodriguez MD PhD Active BACTRIM DS 800-160 MG TAB 1 tab by mouth twice daily TRIMETHOPRIM-SULFAMETHOXAZOLE 40565378159 No Longer Active Sahara Rodriguez MD PhD Active [facility] PROBIOTIC ORAL CHEW 2 daily po PROBIOTIC PRODUCT 43420921299 No Longer Active Sahara Rodriguez MD PhD Active BACTRIM DS 800-160 MG TABS 1 po BID x 7 days SULFAMETHOXAZOLE-TRIMETHOPRIM 25976092491 No Longer Active Vishal Hui MD Active CHANTIX STARTING MONTH EARNEST 0.5 MG X 11 & 1 MG X 42 TABS 0.5mg daily for 3 days , then 0.5mg BID for 4 days, then 1mg BID VARENICLINE TARTRATE 52724668833 No Longer Active TAMARA Gray Active METOPROLOL TARTRATE 50 MG TAB 1 po bid METOPROLOL TARTRATE 05827090923 Active Vishal Hui MD Active VERAPAMIL HCL CR 120 MG TAB CR 1 po bid VERAPAMIL HCL 81819208695 No Longer Active Vishal Hui MD Active METOPROLOL SUCCINATE 50 MG TB24 1 tablet by mouth daily METOPROLOL SUCCINATE 21059626383 No Longer Active Vishal Hui MD Active TRAMADOL HCL 50 MG TABS 1-2 po TID PRN Pain TRAMADOL HCL 28034888933 Active Vishal Hui MD Active SAPHRIS 10 MG SUBL 1 tab po bid ASENAPINE MALEATE 69537965307 No Longer Active Vishal Hui MD Active LISINOPRIL 20 MG TABS 1 tab po qd LISINOPRIL 59123181093 No Longer Active Vishal Hui MD Active BENADRYL 25 MG CAP 2 po tid prn anxiety DIPHENHYDRAMINE HCL 57525478827 Active Vishal Hui MD Active LATUDA 20 MG TABS Take one by mouth daily LURASIDONE HCL 29037290601 No Longer Active Vishal Hui MD Active TRAZODONE HCL 50 MG TABS 1/2 tab po qd prn for anxiety TRAZODONE HCL 22690231562 No Longer Active Vishal Hui MD Active PIROXICAM 20 MG CAPS 1 cap po qd PRN Pain PIROXICAM 26628197610 Active Vishal Hui MD Active OMEPRAZOLE 20 MG TBEC 1 po q a.m. 30min prior to first food intake OMEPRAZOLE 64595695376 Active Vishal Hui MD Active RANITIDINE HCL 150 MG CAPS 1 twice a day RANITIDINE HCL 72269415782 Active Vishal Hui MD Active LINZESS 290 MCG CAPS Take one by mouth daily LINACLOTIDE 42928605769 No Longer Active Vishal Hui MD Active SAPHRIS 5 MG SUBL 1 tab po qd ASENAPINE MALEATE 97091994337 No Longer Active Vishal Hui MD Active ZALEPLON 10 MG CAPS 1 cap po every other night ZALEPLON 56991266167 No Longer Active Vishal Hui MD Active LYRICA 50 MG CAPS 1 tab po TID PREGABALIN 40859210080 No Longer Active Vishal Hui MD Active LORATADINE 10 MG TABS 1 tab po qd LORATADINE 56415362766 No Longer Active Vishal Hui MD Active VERAPAMIL HCL ER 180 MG CR-TABS 1 tab po bid VERAPAMIL HCL 75450850079 No Longer Active Vishal Hui MD Active MIRALAX POWD 1 capfull once daily POLYETHYLENE GLYCOL 3350 71071591234 No Longer Active Vishal Hui MD Active PREDNISONE 20 MG TABS 1 tab po qd PREDNISONE 23647246538 No Longer Active Renzo Thornton DO Active LEVOFLOXACIN 500 MG TABS 1 tab po qd LEVOFLOXACIN 78860077936 No Longer Active Renzo Thornton DO Active BUSPIRONE HCL 15 MG TABS 1 tab po TID BUSPIRONE HCL 15279909272 No Longer Active Renzo Thornton DO Active BENZTROPINE MESYLATE 1 MG TABS 1 tab po qd BENZTROPINE MESYLATE 81792826656 No Longer Active Renzo Thornton DO Active ATENOLOL 25 MG TABS 1 tab po qd ATENOLOL 70555597374 No Longer Active Renzo Thornton DO Active ESCITALOPRAM OXALATE 20 MG TABS 1 tab po qd ESCITALOPRAM OXALATE 74186930386 No Longer Active Renzo Thornton DO Active ADVAIR DISKUS 250-50 MCG/DOSE AEPB 1 puff BID FLUTICASONE-SALMETEROL 75298154878 No Longer Active Renzo Thornton DO Active PREDNISONE 20 MG TAB 2 tabs daily for 3 days, 1 tab daily for 3 days, 1/2 tab daily for 2 days PREDNISONE 25667966343 No Longer Active Vishal Hui MD Active CEFDINIR 300 MG CAPS by mouth twice a day CEFDINIR 78421062574 No Longer Active Vishal Hui MD Active LANSOPRAZOLE 30 MG CPDR 1 cap po qd LANSOPRAZOLE 17481732923 No Longer Active Vishal Hui MD Active BACLOFEN 20 MG TABS 1 tab po tid BACLOFEN 91359306171 No Longer Active Vishal Hui MD Active ADVAIR DISKUS 250-50 MCG/DOSE AEPB 1 puff BID ADVAIR DISKUS 250-50 MCG/DOSE AEPB FLUTICASONE-SALMETEROL Inactive ESCITALOPRAM OXALATE 20 MG TABS 1 tab po qd ESCITALOPRAM OXALATE 20 MG TABS 914097 ESCITALOPRAM OXALATE Inactive ATENOLOL 25 MG TABS 1 tab po qd ATENOLOL 25 MG TABS 510215 ATENOLOL Inactive BENZTROPINE MESYLATE 1 MG TABS 1 tab po qd BENZTROPINE MESYLATE 1 MG TABS 140344 BENZTROPINE MESYLATE Inactive BUSPIRONE HCL 15 MG TABS 1 tab po TID BUSPIRONE HCL 15 MG TABS 636505 BUSPIRONE HCL Inactive LEVOFLOXACIN 500 MG TABS 1 tab po qd LEVOFLOXACIN 500 MG TABS 465977 LEVOFLOXACIN Inactive PREDNISONE 20 MG TABS 1 tab po qd PREDNISONE 20 MG TABS 935684 PREDNISONE Inactive MIRALAX POWD 1 capfull once daily MIRALAX POWD 947973 POLYETHYLENE GLYCOL 3350 Inactive VERAPAMIL HCL ER 180 MG CR-TABS 1 tab po bid VERAPAMIL HCL ER 180 MG CR-TABS VERAPAMIL HCL Inactive LORATADINE 10 MG TABS 1 tab po qd LORATADINE 10 MG TABS 536923 LORATADINE Inactive LYRICA 50 MG CAPS 1 tab po TID LYRICA 50 MG CAPS PREGABALIN Inactive ZALEPLON 10 MG CAPS 1 cap po every other night ZALEPLON 10 MG CAPS 459239 ZALEPLON Inactive SAPHRIS 5 MG SUBL 1 tab po qd SAPHRIS 5 MG SUBL ASENAPINE MALEATE Inactive TRAZODONE HCL 50 MG TABS 1/2 tab po qd prn for anxiety TRAZODONE HCL 50 MG TABS 178842 TRAZODONE HCL Inactive LATUDA 20 MG TABS Take one by mouth daily LATUDA 20 MG TABS LURASIDONE HCL Inactive LISINOPRIL 20 MG TABS 1 tab po qd LISINOPRIL 20 MG TABS 389788 LISINOPRIL Inactive SAPHRIS 10 MG SUBL 1 [...] twice daily BACTRIM DS 800-160 MG TAB 136792 TRIMETHOPRIM-SULFAMETHOXAZOLE Inactive MULTIVITAMINS CAPS Take one by mouth daily MULTIVITAMINS CAPS MULTIPLE VITAMIN Inactive MELATONIN 3 MG CAPS 2 po q hs MELATONIN 3 MG CAPS 601303 MELATONIN Inactive KEFLEX 500 MG ORAL CAPS 1 cap QID by mouth KEFLEX 500 MG ORAL CAPS 018362 CEPHALEXIN Inactive CLINDAMYCIN HCL 150 MG CAPS 1 four times a day CLINDAMYCIN HCL 150 MG CAPS 293879 CLINDAMYCIN HCL Inactive DIFLUCAN 150 MG TAB 1 tablet by mouth daily DIFLUCAN 150 MG TAB 646901 FLUCONAZOLE Inactive PROZAC 20 MG CAP Take one by mouth daily PROZAC 20 MG CAP 416326 FLUOXETINE HCL Inactive IBUPROFEN 600 MG TAB 1 po TID PRN IBUPROFEN 600 MG TAB 966770 IBUPROFEN Inactive VYVANSE 40 MG CAPS 1 daily, VYVANSE 40 MG CAPS LISDEXAMFETAMINE DIMESYLATE Inactive TRAZODONE HCL 100 MG TAB take 1 at bedtime TRAZODONE HCL 100 MG TAB 396523 TRAZODONE HCL Inactive AMITRIPTYLINE HCL 100 MG TAB one at hs AMITRIPTYLINE HCL 100 MG TAB 135984 AMITRIPTYLINE HCL Inactive AMLODIPINE BESYLATE 5 MG TABS 1 tablet by mouth daily AMLODIPINE BESYLATE 5 MG TABS 754594 AMLODIPINE BESYLATE Inactive LATUDA 80 MG TABS Take one by mouth daily LATUDA 80 MG TABS LURASIDONE HCL Inactive SAPHRIS 5 MG SUBL 1 po bid SAPHRIS 5 MG SUBL ASENAPINE MALEATE Inactive CEFDINIR 300 MG CAPS by mouth twice a day CEFDINIR 300 MG CAPS 972465 CEFDINIR Inactive PREDNISONE 20 MG TAB 2 tabs daily for 3 days, 1 tab daily for 3 days, 1/2 tab daily for 2 days PREDNISONE 20 MG TAB 599356 PREDNISONE Inactive BACTRIM DS 800-160 MG TABS 1 po BID x 7 days BACTRIM DS 800-160 MG TABS 410430 SULFAMETHOXAZOLE-TRIMETHOPRIM Inactive DIFLUCAN 150 MG TABS 1 pill every other day x 2 doses DIFLUCAN 150 MG TABS 997451 FLUCONAZOLE Inactive BACTRIM DS 800-160 MG TABS 1 pill by mouth twice daily BACTRIM DS 800-160 MG TABS 519934 SULFAMETHOXAZOLE-TRIMETHOPRIM Inactive Vital Signs Date Name Value [...] Panel - Chemistry sodium, serum 139 mmol/L 455-775 7597/12/03 carbon dioxide, venous blood 28.5 mmol/L 21.0-32.0 [...] 5.5 % 4.3-6.0 cholesterol, serum 159 mg/dL 098-517 5547/12/03 triglyceride, serum, fasting 118 mg/dL 30-200 HDL [...] ... - Chemistry sodium, serum 140 mmol/L 768-315 4777/05/28 potassium, serum 4.2 mmol/L 3.5-5.2 chloride, serum [...] Panel - Chemistry sodium, serum 141 mmol/L 477-340 6535 potassium, serum 4.3 mmol/L 3.5-5.2 chloride, serum 106 mmol/L 98-107 carbon dioxide, venous blood 25.7 mmol/L 21.0-32.0 blood glucose 119 mg/dL 65-110 urea nitrogen, blood 22 mg/dL 7-18 creatinine, serum 0.90 mg/dL 0.60-1.30 alanine aminotransferase (SGPT), serum 28 U/L 12-78 aspartate aminotransferase (SGOT), serum 13 U/L 15-37 calcium, serum 8.5 mg/dL 8.5-10.1 bilirubin, serum, total 0.20 mg/dL 0.00-1.00 sodium, serum 139 mmol/L 056-216 3286/12/22 carbon dioxide, venous blood 26.8 mmol/L 21.0-32.0 [...] Rate - Chemistry sodium, serum 139 mmol/L 638-827 6637/12/11 carbon dioxide, venous blood 25.4 mmol/L 21.0-32.0 [...] Panel - Chemistry sodium, serum 139 mmol/L 382-822 3517/12/31 potassium, serum 4.8 mmol/L 3.5-5.2 chloride, serum 106 mmol/L 98-107 carbon dioxide, venous blood 24.3 mmol/L 21.0-32.0 blood glucose 90 mg/dL 65-110 urea nitrogen, blood 16 mg/dL 7-18 creatinine, serum 1.00 mg/dL 0.60-1.30 alanine aminotransferase (SGPT), serum 41 U/L 12-78 aspartate aminotransferase (SGOT), serum 17 U/L 15-37 calcium, serum 8.6 mg/dL 8.5-10.1 bilirubin, serum, total 0.30 mg/dL 0.00-1.00 cholesterol, serum 108 mg/dL 116-623 6063/12/31 triglyceride, serum, fasting 120 mg/dL 30-200 HDL [...] 5.5 5.0-8.5 Lab Report: UADIP W/MICRO, AUTO, [facility] - Chemistry RBC, urine, dipstick Negative Negative protein, total urine random Negative mg/dL Negative human chorionic gonadotropin, urine, qualitative (urine test) Negative Negative Lab Report: UADIP W/MICRO, AUTO, [facility] - Urinalysis glucose, urine, semiquantitative Negative Negative ketones, urine, by test strip Negative Negative bilirubin, urine Negative Negative urine color Yellow Colorless;Lightyellow;Straw;Yellow appearance, urine Clear Clear specific gravity, urine 1.025 1.000-1.030 pH, urine, semiquantitative 7.0 5.0-8.5 urobilinogen, urine, semiquantitative (dipstick) 0.2 Normal leukocyte esterase, urine, by dipstick Negative Negative nitrite, urine, semiquantitative Negative Negative Lab Report: Varicella-Zoater Inga IgG,IgM/44536, HEP Be Antibody/556, RUB ... - Serology rubella antibody, serum, IgG 2.88 Encounters Code Encounter Date Provider Facility CPT-19166 Level 3 Est. Patient 11:37:33 [employer] Vishal Hui MD [facility] CPT-60149 Level 3 Est. Patient 08:41:09 [employer] Vishal Hui MD [facility] CPT-59553 Level 4 Est. Patient 10:19:35 [employer] Vishal Hui MD [facility] CPT-87049 Level 3 Est. Patient 13:35:45 CDT Vishal Hui MD [facility] CPT-99054 Level 4 Est. Patient 10:08:37 CDT Vishal Hui MD [facility]-36729 Level 3 Est. Patient 11:22:10 CDT Vishal Hui MD [facility] CPT-68365 Level 3 Est. Patient 11:03:32 CDT Sahara Rodriguez MD [facility]-26473 Level 3 Est. Patient 09:41:35 CDT Vishal Hui MD [facility]-18506 Level 3 Est. Patient 12:00:41 CDT Neeraj Collins MD [facility]-88654 Level 3 Est. Patient 09:16:24 CDT Vishal Hui MD [facility] CPT-51005 Level 4 Est. Patient 13:59:09 CDT Neeraj Collins MD [facility]-64147 Level 3 Est. Patient 15:19:43 CDT Renzo Thornton DO [facility] CPT-72556 Level 3 Est. Patient 18:10:26 CDT Sahara Rodriguez MD [facility]-73940 Level 3 Est. Patient 14:49:50 CDT Vishal Hui MD [facility] CPT-48946 Level 4 Est. Patient 18:41:46 CDT Neeraj Collins MD [facility]-28103 Level 4 Est. Patient 09:18:38 [employer] Vishal Hui MD [facility]-84353 Level 3 Est. Patient 14:43:55 [employer] Vishal Hui MD [facility] CPT-69434 Level 3 Est. Patient 15:26:33 [employer] Sahara Rodriguez MD PhD [facility] CPT-75003 Level 3 Est. Patient 10:32:14 [employer] Vishal Hui MD [facility] CPT-39390 Level 3 Est. Patient 15:12:52 [employer] Vishal Hui MD [facility] CPT-84742 Level 4 Est. Patient 09:19:27 CDT Vishal Hui MD [facility] CPT-88048 Level 3 Est. Patient 15:53:00 CDT Renzo Thornton [facility] CPT-33765 Level 3 Est. Patient 15:50:30 CDT Renzo Thornton [facility] CPT-47236 Level 3 Est. Patient 16:55:24 CDT Vishal Hui MD [facility] Procedures Code Procedure Name Date Entry Date Standard Description CPT-07470 Recombivax HB Injection Suspension 5 MCG/0.5ML 08:37:50 [employer] CPT-92701 Immunization Single Admin 08:37:50 [employer] CPT-J3420 Vitamin B12 1000mcg (Cyanocobalamin) 08:32:16 [employer] 03/11 CPT-80631 Abx/Therapy Injection 08:32:16 [employer] CPT-26394 Chest 2V Frontal and Lat 11:46:38 [employer] CPT-22005 Venipuncture Draw Fee 09:12:45 [employer] CPT-J3420 Vitamin B12 1000mcg (Cyanocobalamin) 08:50:15 [employer] 02/08 CPT-13776 Abx/Therapy Injection 08:50:15 [employer] CPT-Cryo Cryotherapy 10:19:35 [employer] CPT-000 Give Appropriate Flu Vaccine 09:22:16 CDT CPT-J3420 Vitamin B12 1000mcg (Cyanocobalamin) 19:08:57 CDT 01/11 CPT-09624 Abx/Therapy Injection 19:08:57 CDT CPT-J3420 Vitamin B12 1000mcg (Cyanocobalamin) 08:19:08 CDT 12/11 CPT-64195 Abx/Therapy Injection 08:19:08 CDT CPT-J3420 Vitamin B12 1000mcg (Cyanocobalamin) 14:48:00 CDT 11/09 CPT-40293 Abx/Therapy Injection 14:47:59 CDT CPT-J3420 Vitamin B12 1000mcg (Cyanocobalamin) 08:34:04 CDT 10/09 CPT-18869 Abx/Therapy Injection 08:34:04 CDT CPT-J3420 Vitamin B12 1000mcg (Cyanocobalamin) 09:18:52 CDT 09/11 CPT-06122 Abx/Therapy Injection 09:18:52 CDT CPT-J3420 Vitamin B12 1000mcg (Cyanocobalamin) 08:35:44 CDT 09/04 CPT-57528 Abx/Therapy Injection 08:35:44 CDT CPT-35727 Immunization Single Admin 11:07:16 CDT CPT-60350 Hepatitis B adult IM 11:07:16 CDT CPT-J3420 Vitamin B12 1000mcg (Cyanocobalamin) 11:00:49 CDT 08/28 CPT-J1040 Depo Medrol 80 mg (Methyl Prednisolone Acetate) 11:00: 49 CDT CPT-78389 Abx/Therapy Injection 11:00:49 CDT CPT-J1040 Depo Medrol 80 mg (Methyl Prednisolone Acetate) 09:16: 23 CDT CPT-J3420 Vitamin B12 1000mcg (Cyanocobalamin) 08:27:05 CDT 08/20 CPT-74619 Abx/Therapy Injection 08:27:05 CDT CPT-80020 Recombivax HB Injection Suspension 5 MCG/0.5ML 10:00:41 CDT CPT-05183 Administration single or combination vaccine inc oral 10 :00:41 CDT CPT-54033 Sono transvag pelvis non OB uterus ovaries cervix 16:36: 57 CDT CPT-47975 LS spine comp w obliq 09:50:55 [employer] CPT-46891 Abd compl w upright 09:50:55 [employer] CPT-J1100 Decadron 4mg (Dexamethasone) 15:51:24 [employer] CPT-J1030 Depo Medrol 40 mg (Methyl Prednisolone Acetate) 15:51: 24 [employer] CPT-78077 Abx/Therapy Injection 15:51:24 [employer] CPT-J1100 Decadron 4mg (Dexamethasone) 15:26:33 [employer] CPT-J1030 Depo Medrol 40 mg (Methyl Prednisolone Acetate) 15:26: 33 [employer] CPT-54594 Sono retroperitoneal complete kidneys and bladder 17:15: 30 CDT CPT-92831 Abd compl w upright 16:09:25 CDT CPT-J1100 Decadron 8mg (Dexamethasone) 17:07:57 CDT CPT-92799 Abx/Therapy Injection 17:07:57 CDT CPT-J1100 Decadron 8mg (Dexamethasone) 16:55:24 CDT CPT-93698 Chest 2V Frontal and Lat 16:32:44 CDT
--- OUTSIDE RECORDS SUMMARY | 2016-11-04 12:43 | XMS REPORT | Clinical Summary ---
Author Author Admin, Dereck Organization [facility] [employer] Address Unknown Phone Unavailable Allergies, Adverse Reactions, [...] Morbid obesity 278.01 Active Juliet Kimbrough BUSINESS TECHNOLOGY TEACHER Morbid obesity 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 Active Juliet Kimbrough BUSINESS TECHNOLOGY TEACHER Dependence on other enabling machines and devices [...] Nocturnal hypoxia 799.02 Active Fabiola Johnson BUSINESS TECHNOLOGY TEACHER Hypoxemia Neck pain 723.1 Resolved Vishal Hui [...] in 2 hours if needed SUMATRIPTAN SUCCINATE 26203106689 Active Vishal Hui MD Active OXYCODONE HCL ER 10 MG ORAL T12A 1/2 tab by mouth every 4 hours prn OXYCODONE HCL 35624163480 Active Neeraj Collins MD Active TESSALON PERLES 100 MG CAP 1 to 2 tablets by mouth 3 times daily as needed for cough BENZONATATE 27486101250 Active Vishal Hui MD Active METHYLPREDNISOLONE 4 MG ORAL TABS po daily METHYLPREDNISOLONE 41698265293 Active Vishal Hui MD Active LEVOFLOXACIN 500 MG ORAL TABS po daily LEVOFLOXACIN 11019907137 Active Vishal Hui MD Active CHANTIX STARTING MONTH EARNEST 0.5 MG X 11 & 1 MG X 42 TABS take as directed 2015 VARENICLINE TARTRATE 71706575278 Active Ahmet Carbajal MD Active CHANTIX 1 MG TABS 1 twice a day to help quit smoking VARENICLINE TARTRATE 10655561382 Active Ahmet Carbajal MD Active HYDROCODONE-ACETAMINOPHEN 5-325 MG TABS 1 to 2 four times a day as needed for pain use until can be seen by specialist HYDROCODONE- ACETAMINOPHEN 25439804136 No Longer Active Vishal Hui MD Active PROAIR HFA 108 (90 BASE) MCG/ACT AERS 2 puffs four times a day as needed 2015 ALBUTEROL SULFATE 65664366815 No Longer Active Vishal Hui MD Active PREDNISONE 20 MG TABS 2 daily for 5 days then 1 daily for 5 days PREDNISONE 09230583697 No Longer Active Vishal Hui MD Active ZITHROMAX Z-EARNEST 250 MG TABS 2 today and then 1 daily for 4 days AZITHROMYCIN 37961882465 No Longer Active Vishal Hui MD Active DICLOFENAC SODIUM 50 MG TBEC 1 tablet by mouth four times daily PRN Pain 2015 DICLOFENAC SODIUM 50667269452 Active Vishal Hui MD Active DICLOFENAC POTASSIUM TABS Take 1 tablet twice a day (pt. is not sure of the dose.) DICLOFENAC POTASSIUM TABS 06667515294 No Longer Active Vishal Hui MD Active VERAPAMIL HCL ER 120 MG ORAL CR-TABS Take 1 tablet by mouth twice a day. VERAPAMIL HCL 14682272373 Active Vishal Hui MD Active FLAGYL 500 MG TAB 1 tablet by mouth bid METRONIDAZOLE 23921134858 No Longer Active Vishal Hui MD Active ABILIFY MAINTENA 400 MG IM SUSR 400mg injection every 28 days ARIPIPRAZOLE 70508707579 Active Silvia Cedeno Carmela HEAD OF [employer] Active FLUTICASONE PROPIONATE 50 MCG/ACT SUSP 2 sprays each nostril daily before bed. FLUTICASONE PROPIONATE 57472104888 Active Fabiola Johnson APRN Active ADZENYS XR-ODT 6.3 MG ORAL TBED 1 tab po daily for ADHD AMPHETAMINE 99454339060 Active Fabiola Johnson APRN Active BENADRYL 25 MG CAP 4 po at bedtime for insomnia DIPHENHYDRAMINE HCL 07635725559 Active Fabiola Johnson APRN Active KLONOPIN 1 MG ORAL TABS 1 tab po TID CLONAZEPAM 60369810477 Active Fabiola Johnson APRN Active VALIUM 5 MG TAB Take 1-2 tablets daily DIAZEPAM 73008877467 No Longer Active Fabiola Johnson APRN Active METOPROLOL TARTRATE 25 MG ORAL TABS 1/2 tablet twice daily for heart rate and blood pressure METOPROLOL TARTRATE 64938589101 No Longer Active Fabiola Johnson APRN Active MIRALAX ORAL POWD 17GMS DAILY IN WATER POLYETHYLENE GLYCOL 3350 29724965686 Active Vishal Hui MD Active VIIBRYD 10 MG ORAL TABS Take 1 tablet once a day VILAZODONE HCL 20251071188 Active Ahmet Carbajal MD Active MIRALAX PACK 1 po qd PRN Constipation POLYETHYLENE GLYCOL 3350 10976124894 No Longer Active Ahmet Carbajal MD Active MINIPRESS 2 MG CAPS 4 cap po at night PRAZOSIN HCL 35159900164 No Longer Active Ahemt Carbajal MD Active PIROXICAM 20 MG CAPS 1 cap po qd PRN Pain PIROXICAM 49926380121 No Longer Active Ahmet Carbajal MD Active TRAMADOL HCL 50 MG TABS 1-2 po TID PRN Pain TRAMADOL HCL 85404400907 No Longer Active Ahmet Carbajal MD Active METOPROLOL TARTRATE 50 MG TAB 1 po bid METOPROLOL TARTRATE 77446871605 No Longer Active Ahmet Carbajal MD Active ABILIFY 15 MG ORAL TABS 1 tab daily ARIPIPRAZOLE 47363143471 No Longer Active Ahmet Carbajal MD Active PROZAC 20 MG ORAL CAPS 1 tab daily FLUOXETINE HCL 36777459792 No Longer Active Ahmet Carbajal MD Active AMBIEN 5 MG ORAL TABS 1 tab at bedtime ZOLPIDEM TARTRATE 91605301188 No Longer Active Ahmet Carbajal MD Active PREDNISONE 20 MG TAB 2 tabs daily for 4 days, 1 tab daily for 4 days, 1/2 tab daily for 4 days PREDNISONE 38812208902 No Longer Active Ahmet Carbajal MD Active KEFLEX 500 MG CAP 1 po TID x 10 days CEPHALEXIN 63790197830 No Longer Active Vishal Hui MD Active TOPAMAX 50 MG ORAL TABS 1 tab twice daily TOPIRAMATE 97621530946 Active Vishal Hui MD Active SAPHRIS 5 MG SUBL 1 po bid ASENAPINE MALEATE 31256883798 No Longer Active Luigi Martínez APRN Active LATUDA 80 MG TABS Take one by mouth daily LURASIDONE HCL 75120965711 No Longer Active Jillina Fralebron NORIEGA Active AMLODIPINE BESYLATE 5 MG TABS 1 tablet by mouth daily AMLODIPINE BESYLATE 41597474933 No Longer Active Pacolljanee Martínez APRN Active AMITRIPTYLINE HCL 100 MG TAB one at hs AMITRIPTYLINE HCL 71356451515 No Longer Active Vishal Hui MD Active TRAZODONE HCL 100 MG TAB take 1 at bedtime TRAZODONE HCL 93859934579 No Longer Active Vishal Hui MD Active VYVANSE 40 MG CAPS 1 daily, LISDEXAMFETAMINE DIMESYLATE 83085142482 No Longer Active Vishal Hui MD Active IBUPROFEN 600 MG TAB 1 po TID PRN IBUPROFEN 36602307173 No Longer Active Vishal Hui MD Active PROZAC 20 MG CAP Take one by mouth daily FLUOXETINE HCL 51200237006 No Longer Active Vishal Hui MD Active ZOFRAN 4 MG TABS 1 po q6hr PRN Nausea ONDANSETRON HCL Active Vishal Hui MD Active BACTRIM DS 800-160 MG TABS 1 pill by mouth twice daily SULFAMETHOXAZOLE-TRIMETHOPRIM 33460706916 No Longer Active Sahara Rodriguez MD PhD Active DIFLUCAN 150 MG TAB 1 tablet by mouth daily FLUCONAZOLE 83445715917 No Longer Active Vishal Hui MD Active TIZANIDINE HCL 4 MG TABS 1 po q6hr PRN Muscle Spasm/Back Pain TIZANIDINE HCL 63754264629 Active Vishal Hui MD Active CLINDAMYCIN HCL 150 MG CAPS 1 four times a day CLINDAMYCIN HCL 89967748969 No Longer Active Neeraj Collins MD Active KEFLEX 500 MG ORAL CAPS 1 cap QID by mouth CEPHALEXIN 40392592935 No Longer Active Neeraj Collins MD Active DIFLUCAN 150 MG TABS 1 pill every other day x 2 doses FLUCONAZOLE 44665465526 No Longer Active Sahara Rodriguez MD PhD Active MELATONIN 3 MG CAPS 2 po q hs MELATONIN 45673138369 No Longer Active Sahara Rodriguez MD PhD Active MULTIVITAMINS CAPS Take one by mouth daily MULTIPLE VITAMIN 92227421974 No Longer Active Sahara Rodriguez MD PhD Active BACTRIM DS 800-160 MG TAB 1 tab by mouth twice daily TRIMETHOPRIM-SULFAMETHOXAZOLE 60801631023 No Longer Active Sahara Rodriguez MD PhD Active [facility] PROBIOTIC ORAL CHEW 2 daily po PROBIOTIC PRODUCT 18858172643 No Longer Active Sahara Rodriguez MD PhD Active BACTRIM DS 800-160 MG TABS 1 po BID x 7 days SULFAMETHOXAZOLE-TRIMETHOPRIM 01152114043 No Longer Active Vishal Hui MD Active CHANTIX STARTING MONTH EARNEST 0.5 MG X 11 & 1 MG X 42 TABS 0.5mg daily for 3 days , then 0.5mg BID for 4 days, then 1mg BID VARENICLINE TARTRATE 83867262963 No Longer Active TAMARA Gray Active VERAPAMIL HCL CR 120 MG TAB CR 1 po bid VERAPAMIL HCL 46611962296 No Longer Active Vishal Hui MD Active METOPROLOL SUCCINATE 50 MG TB24 1 tablet by mouth daily METOPROLOL SUCCINATE 66884476260 No Longer Active Vishal Hui MD Active SAPHRIS 10 MG SUBL 1 tab po bid ASENAPINE MALEATE 25173287195 No Longer Active Vishal Hui MD Active LISINOPRIL 20 MG TABS 1 tab po qd LISINOPRIL 36104795550 No Longer Active Vishal Hui MD Active LATUDA 20 MG TABS Take one by mouth daily LURASIDONE HCL 29384943419 No Longer Active Vishal Hui MD Active TRAZODONE HCL 50 MG TABS 1/2 tab po qd prn for anxiety TRAZODONE HCL 95055181003 No Longer Active Vishal Hui MD Active OMEPRAZOLE 20 MG TBEC 1 po q a.m. 30min prior to first food intake OMEPRAZOLE 63140117758 Active Vishal Hui MD Active RANITIDINE HCL 150 MG CAPS 1 twice a day RANITIDINE HCL 51722754240 Active Luigi Martínez BUSINESS TECHNOLOGY TEACHER Active LINZESS 290 MCG CAPS Take one by mouth daily LINACLOTIDE 98489024401 No Longer Active Vishal Hui MD Active SAPHRIS 5 MG SUBL 1 tab po qd ASENAPINE MALEATE 38516817758 No Longer Active Vishal Hui MD Active ZALEPLON 10 MG CAPS 1 cap po every other night ZALEPLON 30803166399 No Longer Active Vishal Hui MD Active LYRICA 50 MG CAPS 1 tab po TID PREGABALIN 59631624056 No Longer Active Vishal Hui MD Active LORATADINE 10 MG TABS 1 tab po qd LORATADINE 95739764923 No Longer Active Vishal Hui MD Active VERAPAMIL HCL ER 180 MG CR-TABS 1 tab po bid VERAPAMIL HCL 09871638532 No Longer Active Vishal Hui MD Active MIRALAX POWD 1 capfull once daily POLYETHYLENE GLYCOL 3350 47661391501 No Longer Active Vishal Hui MD Active PREDNISONE 20 MG TABS 1 tab po qd PREDNISONE 71294029979 No Longer Active Renzo Thornton DO Active LEVOFLOXACIN 500 MG TABS 1 tab po qd LEVOFLOXACIN 02189822020 No Longer Active Renzo Thornton DO Active BUSPIRONE HCL 15 MG TABS 1 tab po TID BUSPIRONE HCL 93654706998 No Longer Active Renzo Thornton DO Active BENZTROPINE MESYLATE 1 MG TABS 1 tab po qd BENZTROPINE MESYLATE 58566798518 No Longer Active Renzo Thornton DO Active ATENOLOL 25 MG TABS 1 tab po qd ATENOLOL 18977038242 No Longer Active Renzo Thornton DO Active ESCITALOPRAM OXALATE 20 MG TABS 1 tab po qd ESCITALOPRAM OXALATE 27418019165 No Longer Active Renzo Thornton DO Active ADVAIR DISKUS 250-50 MCG/DOSE AEPB 1 puff BID FLUTICASONE-SALMETEROL 76017421018 No Longer Active Renzo Thornton DO Active PREDNISONE 20 MG TAB 2 tabs daily for 3 days, 1 tab daily for 3 days, 1/2 tab daily for 2 days PREDNISONE 79121384591 No Longer Active Vishal Hui MD Active CEFDINIR 300 MG CAPS by mouth twice a day CEFDINIR 78294689134 No Longer Active Vishal Hui MD Active LANSOPRAZOLE 30 MG CPDR 1 cap po qd LANSOPRAZOLE 70329715537 No Longer Active Vishal Hiu MD Active BACLOFEN 20 MG TABS 1 tab po tid BACLOFEN 50064869352 No Longer Active Vishal Hui MD Active ADVAIR DISKUS 250-50 MCG/DOSE AEPB 1 puff BID ADVAIR DISKUS 250-50 MCG/DOSE AEPB FLUTICASONE-SALMETEROL Inactive ESCITALOPRAM OXALATE 20 MG TABS 1 tab po qd ESCITALOPRAM OXALATE 20 MG TABS 102288 ESCITALOPRAM OXALATE Inactive ATENOLOL 25 MG TABS 1 tab po qd ATENOLOL 25 MG TABS 351230 ATENOLOL Inactive BENZTROPINE MESYLATE 1 MG TABS 1 tab po qd BENZTROPINE MESYLATE 1 MG TABS 232615 BENZTROPINE MESYLATE Inactive BUSPIRONE HCL 15 MG TABS 1 tab po TID BUSPIRONE HCL 15 MG TABS 648786 BUSPIRONE HCL Inactive LEVOFLOXACIN 500 MG TABS 1 tab po qd LEVOFLOXACIN 500 MG TABS 892526 LEVOFLOXACIN Inactive PREDNISONE 20 MG TABS 1 tab po qd PREDNISONE 20 MG TABS 704778 PREDNISONE Inactive MIRALAX POWD 1 capfull once daily MIRALAX POWD 065539 POLYETHYLENE GLYCOL 3350 Inactive VERAPAMIL HCL ER 180 MG CR-TABS 1 tab po bid VERAPAMIL HCL ER 180 MG CR-TABS VERAPAMIL HCL Inactive LORATADINE 10 MG TABS 1 tab po qd LORATADINE 10 MG TABS 082724 LORATADINE Inactive LYRICA 50 MG CAPS 1 tab po TID LYRICA 50 MG CAPS PREGABALIN Inactive ZALEPLON 10 MG CAPS 1 cap po every other night ZALEPLON 10 MG CAPS 219383 ZALEPLON Inactive SAPHRIS 5 MG SUBL 1 tab po qd SAPHRIS 5 MG SUBL ASENAPINE MALEATE Inactive TRAZODONE HCL 50 MG TABS 1/2 tab po qd prn for anxiety TRAZODONE HCL 50 MG TABS 401819 TRAZODONE HCL Inactive LATUDA 20 MG TABS Take one by mouth daily LATUDA 20 MG TABS LURASIDONE HCL Inactive LISINOPRIL 20 MG TABS 1 tab po qd LISINOPRIL 20 MG TABS 640794 LISINOPRIL Inactive SAPHRIS 10 MG SUBL 1 [...] twice daily BACTRIM DS 800-160 MG TAB 638483 TRIMETHOPRIM-SULFAMETHOXAZOLE Inactive MULTIVITAMINS CAPS Take one by mouth daily MULTIVITAMINS CAPS MULTIPLE VITAMIN Inactive MELATONIN 3 MG CAPS 2 po q hs MELATONIN 3 MG CAPS 158984 MELATONIN Inactive KEFLEX 500 MG ORAL CAPS 1 cap QID by mouth KEFLEX 500 MG ORAL CAPS 776437 CEPHALEXIN Inactive CLINDAMYCIN HCL 150 MG CAPS 1 four times a day CLINDAMYCIN HCL 150 MG CAPS 533424 CLINDAMYCIN HCL Inactive DIFLUCAN 150 MG TAB 1 tablet by mouth daily DIFLUCAN 150 MG TAB 808891 FLUCONAZOLE Inactive PROZAC 20 MG CAP Take one by mouth daily PROZAC 20 MG CAP 111502 FLUOXETINE HCL Inactive IBUPROFEN 600 MG TAB 1 po TID PRN IBUPROFEN 600 MG TAB 031656 IBUPROFEN Inactive VYVANSE 40 MG CAPS 1 daily, VYVANSE 40 MG CAPS LISDEXAMFETAMINE DIMESYLATE Inactive TRAZODONE HCL 100 MG TAB take 1 at bedtime TRAZODONE HCL 100 MG TAB 288150 TRAZODONE HCL Inactive AMITRIPTYLINE HCL 100 MG TAB one at hs AMITRIPTYLINE HCL 100 MG TAB 383431 AMITRIPTYLINE HCL Inactive AMLODIPINE BESYLATE 5 MG TABS 1 tablet by mouth daily AMLODIPINE BESYLATE 5 MG TABS 468747 AMLODIPINE BESYLATE Inactive LATUDA 80 MG TABS Take one by mouth daily LATUDA 80 MG TABS LURASIDONE HCL Inactive SAPHRIS 5 MG SUBL 1 po bid SAPHRIS 5 MG SUBL ASENAPINE MALEATE Inactive PREDNISONE 20 MG TAB 2 tabs daily for 4 days, 1 tab daily for 4 days, 1/2 tab daily for 4 days PREDNISONE 20 MG TAB 758442 PREDNISONE Inactive AMBIEN 5 MG ORAL TABS 1 tab at bedtime AMBIEN 5 MG ORAL TABS 818218 ZOLPIDEM TARTRATE Inactive PROZAC 20 MG ORAL CAPS 1 tab daily PROZAC 20 MG ORAL CAPS 924233 FLUOXETINE HCL Inactive ABILIFY 15 MG ORAL TABS 1 tab daily ABILIFY 15 MG ORAL TABS 525540 ARIPIPRAZOLE Inactive METOPROLOL TARTRATE 50 MG TAB 1 po bid METOPROLOL TARTRATE 50 MG TAB 933548 METOPROLOL TARTRATE Inactive TRAMADOL HCL 50 MG TABS 1-2 po TID PRN Pain TRAMADOL HCL 50 MG TABS 071910 TRAMADOL HCL Inactive PIROXICAM 20 MG CAPS 1 cap po qd PRN Pain PIROXICAM 20 MG CAPS 814682 PIROXICAM Inactive MINIPRESS 2 MG CAPS 4 cap po at night MINIPRESS 2 MG CAPS 714542 PRAZOSIN HCL Inactive MIRALAX PACK 1 po qd PRN Constipation MIRALAX PACK 117653 POLYETHYLENE GLYCOL 3350 Inactive METOPROLOL TARTRATE 25 MG ORAL TABS 1/2 tablet twice daily for heart rate and blood pressure METOPROLOL TARTRATE 25 MG ORAL TABS 827739 METOPROLOL TARTRATE Inactive VALIUM 5 MG TAB Take 1-2 tablets daily VALIUM 5 MG TAB 934975 DIAZEPAM Inactive FLAGYL 500 MG TAB 1 tablet by mouth bid FLAGYL 500 MG TAB 092700 METRONIDAZOLE Inactive DICLOFENAC POTASSIUM TABS Take 1 tablet twice a day (pt. is not sure of the dose.) DICLOFENAC POTASSIUM TABS DICLOFENAC POTASSIUM TABS Inactive ZITHROMAX Z-EARNEST 250 MG TABS 2 today and then 1 daily for 4 days ZITHROMAX Z-EARNEST 250 MG TABS 7717849 AZITHROMYCIN Inactive PREDNISONE 20 MG TABS 2 daily for 5 days then 1 daily for 5 days PREDNISONE 20 MG TABS 901700 PREDNISONE Inactive PROAIR HFA 108 (90 BASE) MCG/ACT AERS 2 puffs four times a day as needed 2015 PROAIR HFA 108 (90 BASE) MCG/ACT AERS ALBUTEROL SULFATE Inactive HYDROCODONE-ACETAMINOPHEN 5-325 MG TABS 1 to 2 four times a day as needed for pain use until can be seen by specialist HYDROCODONE- ACETAMINOPHEN 5-325 MG TABS 430242 HYDROCODONE-ACETAMINOPHEN Inactive CEFDINIR 300 MG CAPS by mouth twice a day CEFDINIR 300 MG CAPS 615772 CEFDINIR Inactive PREDNISONE 20 MG TAB 2 tabs daily for 3 days, 1 tab daily for 3 days, 1/2 tab daily for 2 days PREDNISONE 20 MG TAB 322873 PREDNISONE Inactive BACTRIM DS 800-160 MG TABS 1 po BID x 7 days BACTRIM DS 800-160 MG TABS 811160 SULFAMETHOXAZOLE-TRIMETHOPRIM Inactive DIFLUCAN 150 MG TABS 1 pill every other day x 2 doses DIFLUCAN 150 MG TABS 346536 FLUCONAZOLE Inactive BACTRIM DS 800-160 MG TABS 1 pill by mouth twice daily BACTRIM DS 800-160 MG TABS 701853 SULFAMETHOXAZOLE-TRIMETHOPRIM Inactive KEFLEX 500 MG CAP 1 po TID x 10 days KEFLEX 500 MG CAP 722603 CEPHALEXIN Inactive Advance Directives Directive Description Start [...] % 11.6-14.8 platelet count 394 10^3/MM^3 10*3/mm3 403-694 5147/12/22 mean corpuscular volume, RBC 93 fL 80-97 [...] Panel - Chemistry sodium, serum 139 mmol/L 557-425 4572/12/03 carbon dioxide, venous blood 28.5 mmol/L 21.0-32.0 [...] 5.5 % 4.3-6.0 cholesterol, serum 159 mg/dL 101-195 5043/12/03 triglyceride, serum, fasting 118 mg/dL 30-200 HDL [...] Panel - Chemistry sodium, serum 139 mmol/L 215-394 2779/12/22 creatinine, serum 0.90 mg/dL 0.55-1.30 alanine aminotransferase (SGPT), serum 38 U/L aspartate aminotransferase (SGOT), serum 19 U/L 15-37 calcium, serum 8.6 mg/dL 8.5-10.1 bilirubin, serum, total 0.30 mg/dL 0.00-1.00 carbon dioxide, venous blood 26.8 mmol/L 21.0-32.0 potassium, serum 4.2 mmol/L 3.5-5.2 chloride, serum 103 mmol/L 98-107 blood glucose 115 mg/dL 65-110 urea nitrogen, blood 20 mg/dL 7-18 sodium, serum 139 mmol/L 409-782 6836/01/11 carbon dioxide, venous blood 26.6 mmol/L 21.0-32.0 potassium, serum 4.1 mmol/L 3.5-5.2 chloride, serum 100 mmol/L 98-107 blood glucose 86 mg/dL 65-110 urea nitrogen, blood 16 mg/dL 7-18 creatinine, serum 1.00 mg/dL 0.55-1.30 alanine aminotransferase (SGPT), serum 48 U/L aspartate aminotransferase (SGOT), serum 17 U/L 15-37 calcium, serum 9.1 mg/dL 8.5-10.1 bilirubin, serum, total 0.40 mg/dL 0.00-1.00 sodium, serum 142 mmol/L 184-931 7962/06/08 carbon dioxide, venous blood 27.6 mmol/L 21.0-32.0 potassium, serum 4.0 mmol/L 3.5-5.2 chloride, serum 105 mmol/L 98-107 blood glucose 95 mg/dL 65-110 urea nitrogen, blood 8 mg/dL 7-18 creatinine, serum 0.75 mg/dL 0.55-1.30 alanine aminotransferase (SGPT), serum 49 U/L 12-78 aspartate aminotransferase (SGOT), serum 28 U/L 15-37 calcium, serum 9.4 mg/dL 8.5-10.1 bilirubin, serum, total 0.30 mg/dL 0.00-1.00 sodium, serum 140 mmol/L 148-705 5931/08/08 carbon dioxide, venous blood 33.7 mmol/L 21.0-32.0 [...] Rate - Chemistry sodium, serum 139 mmol/L 098-012 9896/12/11 carbon dioxide, venous blood 25.4 mmol/L 21.0-32.0 [...] mg/dL Encounters Code Encounter Date Provider Facility CPT-62808 Level 3 Est. Patient 18:18:53 CDT Neeraj Collins MD [facility] CPT-23429 Level 3 Est. Patient 15:50:44 CDT Vishal Hui MD [facility] CPT-79609 Level 3 Est. Patient 11:36:17 CDT Ahmet Carbajal MD [facility] CPT-24326 Level 3 Est. Patient 13:29:16 CDT Vishal Hui MD [facility] CPT-53172 Level 3 Est. Patient 14:27:52 CDT Neeraj Collins MD [facility] CPT-41483 Level 3 Est. Patient 08:56:03 CDT Luigi Martínez [facility] CPT-33847 Level 4 Est. Patient 12:11:48 CDT Fabiola Johnson [facility] CPT-28961 Level 3 New Patient 16:53:37 CDT Albert Caldera MD [facility] CPT-90502 Level 3 Est. Patient 11:25:49 CDT Renzo Thornton DO [facility] CPT-25198 Level 3 Est. Patient 15:22:01 CDT Ahmet Carbajal MD [facility] CPT-60356 Level 4 Est. Patient 09:00:51 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 Vishal Hui MD [facility] CPT-04122 Level 3 Est. Patient 11:37:33 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 Vishal Hui MD [facility] CPT-89412 Level 3 Est. Patient 08:41:09 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 Vishal Hui MD [facility] CPT-54079 Level 4 Est. Patient 10:19:35 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 Vishal Hui MD [facility] CPT-84453 Level 3 Est. Patient 13:35:45 CDT Vishal Hui MD [facility] CPT-48437 Level 4 Est. Patient 10:08:37 CDT Vishal Hui MD [facility] CPT-62422 Level 3 Est. Patient 11:22:10 CDT Vishal Hui MD [facility] CPT-06059 Level 3 Est. Patient 11:03:32 CDT Sahara Rodriguez MD [facility]-76948 Level 3 Est. Patient 09:41:35 CDT Vishal Hui MD [facility]-70262 Level 3 Est. Patient 12:00:41 CDT Neeraj Collins MD [facility] CPT-15249 Level 3 Est. Patient 09:16:24 CDT Vishal Hui MD [facility] CPT-03917 Level 4 Est. Patient 13:59:09 CDT Neeraj Collins MD [facility]-33921 Level 3 Est. Patient 15:19:43 CDT Renzo Thornton DO [facility] CPT-83687 Level 3 Est. Patient 18:10:26 CDT Sahara Rodriguez MD [facility] CPT-40512 Level 3 Est. Patient 14:49:50 CDT Vishal Hui MD [facility]-11584 Level 4 Est. Patient 18:41:46 CDT Neeraj Collins MD [facility] CPT-90698 Level 4 Est. Patient 09:18:38 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 Vishal Hui MD [facility] CPT-80039 Level 3 Est. Patient 14:43:55 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 Vishal Hui MD [facility] CPT-41490 Level 3 Est. Patient 15:26:33 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 Sahara Rodriguez MD [facility]-28334 Level 3 Est. Patient 10:32:14 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 Vishal Hui MD [facility] CPT-48148 Level 3 Est. Patient 15:12:52 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 Vishal Hui MD [facility] CPT-98973 Level 4 Est. Patient 09:19:27 CDT Vishal Hui MD [facility] CPT-50434 Level 3 Est. Patient 15:53:00 CDT Renzo Thornton [facility] CPT-08154 Level 3 Est. Patient 15:50:30 CDT Renzo Thornton [facility] CPT-99255 Level 3 Est. Patient 16:55:24 CDT Vishal Hui MD [facility] Procedures Code Procedure Name Date Entry Date Standard Description CPT-33722 Abx/Therapy Injection 08:47:09 CDT CPT-22611 Abx/Therapy Injection 13:29:56 CDT CPT-25037 Abx/Therapy Injection 08:36:16 CDT CPT-94922 Wet Mount - LAB USE ONLY 17:44:58 CDT CPT-92096 UA w micro - LAB USE ONLY 17:44:58 CDT CPT-82746 CMP - LAB USE ONLY 17:44:58 CDT CPT-57065 Venipuncture Draw Fee 17:44:58 CDT CPT-39466 Cervical Min 4V - XRAY USE ONLY 09:01:40 CDT CPT-39667 Chest 2V Frontal and Lat - XRAY USE ONLY 11:06:31 CDT CPT-67462 EKG Trac and Interp - XRAY USE ONLY 11:31:43 CDT 08/26 CPT-J3420 Vitamin B12 1000mcg (Cyanocobalamin) 08:10:26 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 04/12 CPT-09862 Abx/Therapy Injection 08:10:26 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 CPT-G0438 Initial Annual Wellness Exam 19:01:01 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 CPT-J3420 Vitamin B12 1000mcg (Cyanocobalamin) 16:57:46 CDT 08/14 CPT-51817 Recombivax HB Injection Suspension 5 MCG/0.5ML 08:37:50 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 CPT-29768 Immunization Single Admin 08:37:50 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 CPT-J3420 Vitamin B12 1000mcg (Cyanocobalamin) 08:32:16 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 03/11 CPT-91757 Abx/Therapy Injection 08:32:16 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 CPT-83822 Chest 2V Frontal and Lat 11:46:38 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 CPT-42379 Venipuncture Draw Fee 09:12:45 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 CPT-J3420 Vitamin B12 1000mcg (Cyanocobalamin) 08:50:15 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 02/08 CPT-66189 Abx/Therapy Injection 08:50:15 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 CPT-Cryo Cryotherapy 10:19:35 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 CPT-000 Give Appropriate Flu Vaccine 09:22:16 CDT CPT-J3420 Vitamin B12 1000mcg (Cyanocobalamin) 19:08:57 CDT 01/11 CPT-02231 Abx/Therapy Injection 19:08:57 CDT CPT-J3420 Vitamin B12 1000mcg (Cyanocobalamin) 08:19:08 CDT 12/11 CPT-03501 Abx/Therapy Injection 08:19:08 CDT CPT-J3420 Vitamin B12 1000mcg (Cyanocobalamin) 14:48:00 CDT 11/09 CPT-71041 Abx/Therapy Injection 14:47:59 CDT CPT-J3420 Vitamin B12 1000mcg (Cyanocobalamin) 08:34:04 CDT 10/09 CPT-71032 Abx/Therapy Injection 08:34:04 CDT CPT-J3420 Vitamin B12 1000mcg (Cyanocobalamin) 09:18:52 CDT 09/11 CPT-06741 Abx/Therapy Injection 09:18:52 CDT CPT-J3420 Vitamin B12 1000mcg (Cyanocobalamin) 08:35:44 CDT 09/04 CPT-69657 Abx/Therapy Injection 08:35:44 CDT CPT-71034 Immunization Single Admin 11:07:16 CDT CPT-15350 Hepatitis B adult IM 11:07:16 CDT CPT-J3420 Vitamin B12 1000mcg (Cyanocobalamin) 11:00:49 CDT 08/28 CPT-J1040 Depo Medrol 80 mg (Methyl Prednisolone Acetate) 11:00: 49 CDT CPT-67768 Abx/Therapy Injection 11:00:49 CDT CPT-J1040 Depo Medrol 80 mg (Methyl Prednisolone Acetate) 09:16: 23 CDT CPT-J3420 Vitamin B12 1000mcg (Cyanocobalamin) 08:27:05 CDT 08/20 CPT-19895 Abx/Therapy Injection 08:27:05 CDT CPT-31430 Recombivax HB Injection Suspension 5 MCG/0.5ML 10:00:41 CDT CPT-21462 Administration single or combination vaccine inc oral 10 :00:41 CDT CPT-41782 Sono transvag pelvis non OB uterus ovaries cervix 16:36: 57 CDT CPT-37760 LS spine comp w obliq 09:50:55 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 CPT-34347 Abd compl w upright 09:50:55 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 CPT-J1100 Decadron 4mg (Dexamethasone) 15:51:24 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 CPT-J1030 Depo Medrol 40 mg (Methyl Prednisolone Acetate) 15:51: 24 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 CPT-47184 Abx/Therapy Injection 15:51:24 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 CPT-J1100 Decadron 4mg (Dexamethasone) 15:26:33 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 CPT-J1030 Depo Medrol 40 mg (Methyl Prednisolone Acetate) 15:26: 33 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 CPT-67298 Sono retroperitoneal complete kidneys and bladder 17:15: 30 CDT CPT-03161 Abd compl w upright 16:09:25 CDT CPT-J1100 Decadron 8mg (Dexamethasone) 17:07:57 CDT CPT-66373 Abx/Therapy Injection 17:07:57 CDT CPT-J1100 Decadron 8mg (Dexamethasone) 16:55:24 CDT CPT-20582 Chest 2V Frontal and Lat 16:32:44 CDT
--- OUTSIDE RECORDS SUMMARY | 2016-11-04 12:46 | XMS REPORT | Clinical Summary ---
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 LINACLOTIDE [id number] Active Lynda Madl F[employer]MENT[employer] [place] Active AMITIZA 8 MCG ORAL CAPS 1 tab BID LUBIPROSTONE 60079047913 No Longer Active Lynda Madl F[employer]MENTER [place] Active DIFLUCAN 150 MG TABS 1 by mouth for yeast FLUCONAZOLE 25176694127 Active Suzan Boo APRN Active LACTULOSE 10 GM/15ML ORAL SOLN 30mL oral BID for IBS-C LACTULOSE 52278850043 Active Suzan Boo APRN Active BACTRIM DS 800-160 MG TABS 1 twice a day SULFAMETHOXAZOLE- TRIMETHOPRIM 26140113406 Active Lynda Ninoska [employer] [place] Active MUPIROCIN 2 % OINT apply twice a day MUPIROCIN 33459245765 Active Suzan Boo APRN Active TESSALON PERLES 100 MG CAPS 1 three times a day as needed for cough BENZONATATE 87396383612 No Longer Active Suzan Boo APRN Active BACTRIM DS 800-160 MG TABS 1 twice a day SULFAMETHOXAZOLE-TRIMETHOPRIM 32175008249 No Longer Active Suzan Boo APRN Active DIFLUCAN 150 MG TABS 1 by mouth for yeast FLUCONAZOLE 82985452887 No Longer Active Suzan Boo APRN Active EQ NICOTINE 21 MG/24HR TRANS PT24 Apply daily to stop smoking NICOTINE 08640219562 No Longer Active Suzan Boo APRN Active PREDNISONE 10 MG TABS 2 daily for 5 days then 1 daily for 5 days PREDNISONE 70575587954 No Longer Active Suzan Boo APRN Active LEVAQUIN 500 MG TABS 1 daily for infection LEVOFLOXACIN 15105294657 No Longer Active Suzan Boo APRN Active TROPICAMIDE 0.5 % OPHTH SOLN 1 drop PRN eye spasms TROPICAMIDE 85467784824 No Longer Active Suzan Boo APRN Active PREDNISONE 20 MG TAB 1 tablet daily x 4 days PREDNISONE 78902121850 No Longer Active Suzan Boo APRN Active ACETAMINOPHEN-CODEINE 120-12 MG/5ML SOLN 5 ml by mouth every 4-6 hours if needed for cough ACETAMINOPHEN-CODEINE 62424641707 No Longer Active Suzan Boo APRN Active KEFLEX 500 MG CAP 1 po qid CEPHALEXIN 32843107451 No Longer Active Suzan Boo APRN Active FLOVENT HFA 110 MCG/ACT AERO 2 puffs inhaled b.i.d. FLUTICASONE PROPIONATE HFA 30924398582 Active Renzo Thornton DO Active RISPERDAL 4 MG ORAL TABS 1 tab at bedtime RISPERIDONE 35883204269 Active Samantha Mirelesb RMA Active ZOFRAN 4 MG TABS 1 po q6hr PRN Nausea ONDANSETRON HCL No Longer Active Suzan Boo APRN Active FLUTICASONE PROPIONATE 50 MCG/ACT SUSP 2 sprays each nostril daily before bed. FLUTICASONE PROPIONATE 49516970256 No Longer Active Suzan Boo APRN Active ASPIRIN 325 MG ORAL TABS 1 tab q.d ASPIRIN 78964422317 No Longer Active Suzan Boo APRN Active HALOPERIDOL 10 MG ORAL TABS 1 tab q.d HALOPERIDOL 13180552239 No Longer Active Suzan Boo APRN Active GUAIFENESIN-CODEINE 100-10 MG/5ML SYRP 5ml every 4 to 6 hours as needed for cough GUAIFENESIN-CODEINE 54487624560 No Longer Active Suzan Boo APRN Active ZITHROMAX Z-EARNEST 250 MG TABS 2 today and then 1 daily for 4 days AZITHROMYCIN 69666675273 No Longer Active Suzan Boo APRN Active CLONAZEPAM 1 MG ORAL TABS 1 twice a day and an additional 1 tablet every other day as needed for pseudoseizures or anxiety CLONAZEPAM 28077206732 Active Suzan Boo APRN Active HYDROCODONE-ACETAMINOPHEN 5-325 MG ORAL TABS 1 tab two times a day HYDROCODONE-ACETAMINOPHEN 82921571841 No Longer Active Ahmet Carbajal MD Active LAMICTAL 100 MG ORAL TABS 1 tab 2 times qd. LAMOTRIGINE 64887258148 Active Ahmet Carbajal MD Active PREDNISONE 20 MG TABS 2 daily for 5 days then 1 daily for 5 days PREDNISONE 37529542958 No Longer Active Ahmet Carbajal MD Active FLUTICASONE PROPIONATE 50 MCG/ACT SUSP 1 to 2 sprays each nostril daily for allergies FLUTICASONE PROPIONATE 41337681107 Active Tila Valenzuela Active BENADRYL 25 MG CAP 4 po at bedtime for insomnia DIPHENHYDRAMINE HCL 62880572549 No Longer Active Ahmet Carbajal MD Active ADVAIR DISKUS 250-50 MCG/DOSE INH AEPB 1 puff twice a day for asthma FLUTICASONE-SALMETEROL 06162827325 No Longer Active Ahmet Carbajal MD Active KLONOPIN 1 MG ORAL TABS 1 tab po TID CLONAZEPAM 31612157720 No Longer Active Ahmet Carbajal MD Active ABILIFY MAINTENA 400 MG IM SUSR 400mg injection every 26 days ARIPIPRAZOLE 08082810632 No Longer Active Ahmet Carbajal MD Active TRAMADOL HCL 50 MG TABS 1/2-1 tab TID PRN TRAMADOL HCL 94929738010 No Longer Active Ahmet Carbajal MD Active BACTRIM DS 800-160 MG TABS 1 twice a day SULFAMETHOXAZOLE- TRIMETHOPRIM 27675818943 No Longer Active Ahmet Carbajal MD Active PROAIR HFA 108 (90 BASE) MCG/ACT AERS 2 puffs four times a day as needed 2015 ALBUTEROL SULFATE 56660132747 Active Honey Hinton APRN Active MONISTAT 7 COMBO PACK WOODROW 100 & 2 MG-% (9GM) VAG KIT 1 applicatorful per vagina q pm x 7 MICONAZOLE NITRATE 33950768269 No Longer Active Ahmet Carbajal MD Active FLAGYL 500 MG TAB 1 tablet by mouth bid METRONIDAZOLE 71987798827 No Longer Active Ahmet Carbajal MD Active OXYCODONE HCL ER 10 MG ORAL T12A 1/2 tab by mouth every 4 hours prn OXYCODONE HCL 84141856706 No Longer Active Ahmet Carbajal MD Active METHYLPREDNISOLONE 4 MG ORAL TABS po daily METHYLPREDNISOLONE 55819178366 No Longer Active Ahmet Carbajal MD Active LEVOFLOXACIN 500 MG ORAL TABS po daily LEVOFLOXACIN 04990040622 No Longer Active Ahmet Carbajal MD Active VIIBRYD 10 MG ORAL TABS Take 1 tablet once a day VILAZODONE HCL 47727487065 No Longer Active Ahmet Carbajal MD Active TOPAMAX 50 MG ORAL TABS 1 tab twice daily TOPIRAMATE 68552473873 No Longer Active Ahmet Carbajal MD Active DICLOFENAC SODIUM 50 MG TBEC 1 tablet by mouth four times daily PRN Pain 2015 DICLOFENAC SODIUM 79876849113 No Longer Active Ahmet Carbajal MD Active ADZENYS XR-ODT 6.3 MG ORAL TBED 1 tab po daily for ADHD AMPHETAMINE 73024202952 No Longer Active Ahmet Carbajal MD Active CHANTIX 1 MG TABS 1 twice a day to help quit smoking VARENICLINE TARTRATE 28691979025 No Longer Active Dipika Burgos MD Active CHANTIX STARTING MONTH EARNEST 0.5 MG X 11 & 1 MG X 42 TABS take as directed 2015 VARENICLINE TARTRATE 23414258988 No Longer Active Dipika Burgos MD Active TESSALON PERLES 100 MG CAP 1 to 2 tablets by mouth 3 times daily as needed for cough BENZONATATE 31604716341 No Longer Active Pacolljanee Martínez APRN Active IMITREX 50 MG ORAL TABS 0.5 po x 1 PRN Headache. May repeat dose x 1 in 2 hours if needed SUMATRIPTAN SUCCINATE 86283725176 Active Ahmet Carbajal MD Active HYDROCODONE-ACETAMINOPHEN 5-325 MG TABS 1 to 2 four times a day as needed for pain use until can be seen by specialist HYDROCODONE- ACETAMINOPHEN 20650643638 No Longer Active Vishal Hui MD Active PROAIR HFA 108 (90 BASE) MCG/ACT AERS 2 puffs four times a day as needed 2015 ALBUTEROL SULFATE 24787710428 No Longer Active Vishal Hui MD Active PREDNISONE 20 MG TABS 2 daily for 5 days then 1 daily for 5 days PREDNISONE 33193385479 No Longer Active Vishal Hui MD Active ZITHROMAX Z-EARNEST 250 MG TABS 2 today and then 1 daily for 4 days AZITHROMYCIN 09991844121 No Longer Active Vishal Hui MD Active DICLOFENAC POTASSIUM TABS Take 1 tablet twice a day (pt. is not sure of the dose.) DICLOFENAC POTASSIUM TABS 47611837877 No Longer Active Vishal Hui MD Active VERAPAMIL HCL ER 120 MG ORAL CR-TABS Take 1 tablet by mouth twice a day. VERAPAMIL HCL 11375175432 Active Vishal Hui MD Active FLAGYL 500 MG TAB 1 tablet by mouth bid METRONIDAZOLE 98418024879 No Longer Active Vishal Hui MD Active VALIUM 5 MG TAB Take 1-2 tablets daily DIAZEPAM 93550796471 No Longer Active Fabiola Johnson APRN Active METOPROLOL TARTRATE 25 MG ORAL TABS 1/2 tablet twice daily for heart rate and blood pressure METOPROLOL TARTRATE 33832695812 No Longer Active Fabiola Johnson APRN Active MIRALAX ORAL POWD 17GMS DAILY IN WATER POLYETHYLENE GLYCOL 3350 40379072536 Active TAMARA Casey Active MIRALAX PACK 1 po qd PRN Constipation POLYETHYLENE GLYCOL 3350 49400775175 No Longer Active Ahmet Carbajal MD Active MINIPRESS 2 MG CAPS 4 cap po at night PRAZOSIN HCL 09194965977 No Longer Active Ahmet Carbajal MD Active PIROXICAM 20 MG CAPS 1 cap po qd PRN Pain PIROXICAM 31777517412 No Longer Active Ahmet Carbajal MD Active TRAMADOL HCL 50 MG TABS 1-2 po TID PRN Pain TRAMADOL HCL 71919184626 No Longer Active Ahmet Carbajal MD Active METOPROLOL TARTRATE 50 MG TAB 1 po bid METOPROLOL TARTRATE 06864690815 No Longer Active Ahmet Carbajal MD Active ABILIFY 15 MG ORAL TABS 1 tab daily ARIPIPRAZOLE 80080237148 No Longer Active Ahmet Carbajal MD Active PROZAC 20 MG ORAL CAPS 1 tab daily FLUOXETINE HCL 47352130910 No Longer Active Ahmet Carbajal MD Active AMBIEN 5 MG ORAL TABS 1 tab at bedtime ZOLPIDEM TARTRATE 85900950605 No Longer Active Ahmet Carbajal MD Active PREDNISONE 20 MG TAB 2 tabs daily for 4 days, 1 tab daily for 4 days, 1/2 tab daily for 4 days PREDNISONE 51313056878 No Longer Active Ahmet Carbajal MD Active KEFLEX 500 MG CAP 1 po TID x 10 days CEPHALEXIN 17072710100 No Longer Active Vishal Hui MD Active SAPHRIS 5 MG SUBL 1 po bid ASENAPINE MALEATE 36487850647 No Longer Active Jillina Fradwightl SHIPWRIGHT Active LATUDA 80 MG TABS Take one by mouth daily LURASIDONE HCL 21181919924 No Longer Active Jillina Frazell SHIPWRIGHT Active AMLODIPINE BESYLATE 5 MG TABS 1 tablet by mouth daily AMLODIPINE BESYLATE 68100486703 No Longer Active Jillina Frazell SHIPWRIGHT Active AMITRIPTYLINE HCL 100 MG TAB one at hs AMITRIPTYLINE HCL 98984964786 No Longer Active Vishal Hui MD Active TRAZODONE HCL 100 MG TAB take 1 at bedtime TRAZODONE HCL 41947078338 No Longer Active Vishal Hui MD Active VYVANSE 40 MG CAPS 1 daily, LISDEXAMFETAMINE DIMESYLATE 62126177837 No Longer Active Vishal Hui MD Active IBUPROFEN 600 MG TAB 1 po TID PRN IBUPROFEN 62516616785 No Longer Active Vishal Hui MD Active PROZAC 20 MG CAP Take one by mouth daily FLUOXETINE HCL 76657772851 No Longer Active Vishal Hui MD Active BACTRIM DS 800-160 MG TABS 1 pill by mouth twice daily SULFAMETHOXAZOLE-TRIMETHOPRIM 45588780688 No Longer Active Sahara Rodriguez MD PhD Active DIFLUCAN 150 MG TAB 1 tablet by mouth daily FLUCONAZOLE 65507363200 No Longer Active Vishal Hui MD Active TIZANIDINE HCL 4 MG TABS 1 po q6hr PRN Muscle Spasm/Back Pain TIZANIDINE HCL 89495426936 Active TAMARA Casey Active CLINDAMYCIN HCL 150 MG CAPS 1 four times a day CLINDAMYCIN HCL 24391002668 No Longer Active Neeraj Collins MD Active KEFLEX 500 MG ORAL CAPS 1 cap QID by mouth CEPHALEXIN 15428943737 No Longer Active Neeraj Collins MD Active DIFLUCAN 150 MG TABS 1 pill every other day x 2 doses FLUCONAZOLE 25594522299 No Longer Active Sahara Rodriguez MD PhD Active MELATONIN 3 MG CAPS 2 po q hs MELATONIN 73034644443 No Longer Active Sahara Rodriguez MD PhD Active MULTIVITAMINS CAPS Take one by mouth daily MULTIPLE VITAMIN 17415642594 No Longer Active Sahara Rodriguez MD PhD Active BACTRIM DS 800-160 MG TAB 1 tab by mouth twice daily TRIMETHOPRIM-SULFAMETHOXAZOLE 42934392501 No Longer Active Sahara Rodriguez MD PhD Active [facility] PROBIOTIC ORAL CHEW 2 daily po PROBIOTIC PRODUCT 52182962768 No Longer Active Sahara Rodriguez MD PhD Active BACTRIM DS 800-160 MG TABS 1 po BID x 7 days SULFAMETHOXAZOLE-TRIMETHOPRIM 99351526124 No Longer Active Vishal Hui MD Active CHANTIX STARTING MONTH EARNEST 0.5 MG X 11 & 1 MG X 42 TABS 0.5mg daily for 3 days , then 0.5mg BID for 4 days, then 1mg BID VARENICLINE TARTRATE 60569224325 No Longer Active TAMARA Gray Active VERAPAMIL HCL CR 120 MG TAB CR 1 po bid VERAPAMIL HCL 94568025952 No Longer Active Vishal Hui MD Active METOPROLOL SUCCINATE 50 MG TB24 1 tablet by mouth daily METOPROLOL SUCCINATE 68782785646 No Longer Active Vishal Hui MD Active SAPHRIS 10 MG SUBL 1 tab po bid ASENAPINE MALEATE 23675974586 No Longer Active Vishal Hui MD Active LISINOPRIL 20 MG TABS 1 tab po qd LISINOPRIL 55782910355 No Longer Active Vishal Hui MD Active LATUDA 20 MG TABS Take one by mouth daily LURASIDONE HCL 07326718114 No Longer Active Vishal Hui MD Active TRAZODONE HCL 50 MG TABS 1/2 tab po qd prn for anxiety TRAZODONE HCL 39592916482 No Longer Active Vishal Hui MD Active OMEPRAZOLE 20 MG TBEC 1 po q a.m. 30min prior to first food intake OMEPRAZOLE 02988293623 Active TAMARA Casey Active RANITIDINE HCL 150 MG CAPS 1 twice a day RANITIDINE HCL 15043964349 Active Lynda Xiao LPN Active LINZESS 290 MCG CAPS Take one by mouth daily LINACLOTIDE 85335145819 No Longer Active Vishal Hui MD Active SAPHRIS 5 MG SUBL 1 tab po qd ASENAPINE MALEATE 99218938145 No Longer Active Vishal Hui MD Active ZALEPLON 10 MG CAPS 1 cap po every other night ZALEPLON 03012438811 No Longer Active Vishal Hui MD Active LYRICA 50 MG CAPS 1 tab po TID PREGABALIN 66030789531 No Longer Active Vishal Hui MD Active LORATADINE 10 MG TABS 1 tab po qd LORATADINE 40216169071 No Longer Active Vishal Hui MD Active VERAPAMIL HCL ER 180 MG CR-TABS 1 tab po bid VERAPAMIL HCL 02583954404 No Longer Active Vishal Hui MD Active MIRALAX POWD 1 capfull once daily POLYETHYLENE GLYCOL 3350 90129329270 No Longer Active Vishal Hui MD Active PREDNISONE 20 MG TABS 1 tab po qd PREDNISONE 26676045488 No Longer Active Renzo Thornton DO Active LEVOFLOXACIN 500 MG TABS 1 tab po qd LEVOFLOXACIN 27281204710 No Longer Active Renzo Thornton DO Active BUSPIRONE HCL 15 MG TABS 1 tab po TID BUSPIRONE HCL 89579068353 No Longer Active Renzo Thornton DO Active BENZTROPINE MESYLATE 1 MG TABS 1 tab po qd BENZTROPINE MESYLATE 75067469120 No Longer Active Renzo Thornton DO Active ATENOLOL 25 MG TABS 1 tab po qd ATENOLOL 47235910258 No Longer Active Renzo Thornton DO Active ESCITALOPRAM OXALATE 20 MG TABS 1 tab po qd ESCITALOPRAM OXALATE 21443074506 No Longer Active Renzo Thornton DO Active ADVAIR DISKUS 250-50 MCG/DOSE AEPB 1 puff BID FLUTICASONE-SALMETEROL 26485949404 No Longer Active Renzo Thornton DO Active PREDNISONE 20 MG TAB 2 tabs daily for 3 days, 1 tab daily for 3 days, 1/2 tab daily for 2 days PREDNISONE 44506007991 No Longer Active Vishal Hui MD Active CEFDINIR 300 MG CAPS by mouth twice a day CEFDINIR 99699549978 No Longer Active Vishal Hui MD Active LANSOPRAZOLE 30 MG CPDR 1 cap po qd LANSOPRAZOLE 51203574528 No Longer Active Vishal Hui MD Active BACLOFEN 20 MG TABS 1 tab po tid BACLOFEN 36527288929 No Longer Active Vishal Hui MD Active ADVAIR DISKUS 250-50 MCG/DOSE AEPB 1 puff BID ADVAIR DISKUS 250-50 MCG/DOSE AEPB FLUTICASONE-SALMETEROL Inactive ESCITALOPRAM OXALATE 20 MG TABS 1 tab po qd ESCITALOPRAM OXALATE 20 MG TABS 369361 ESCITALOPRAM OXALATE Inactive ATENOLOL 25 MG TABS 1 tab po qd ATENOLOL 25 MG TABS 169081 ATENOLOL Inactive BENZTROPINE MESYLATE 1 MG TABS 1 tab po qd BENZTROPINE MESYLATE 1 MG TABS 876220 BENZTROPINE MESYLATE Inactive BUSPIRONE HCL 15 MG TABS 1 tab po TID BUSPIRONE HCL 15 MG TABS 962267 BUSPIRONE HCL Inactive LEVOFLOXACIN 500 MG TABS 1 tab po qd LEVOFLOXACIN 500 MG TABS 068676 LEVOFLOXACIN Inactive PREDNISONE 20 MG TABS 1 tab po qd PREDNISONE 20 MG TABS 107632 PREDNISONE Inactive MIRALAX POWD 1 capfull once daily MIRALAX POWD 177167 POLYETHYLENE GLYCOL 3350 Inactive VERAPAMIL HCL ER 180 MG CR-TABS 1 tab po bid VERAPAMIL HCL ER 180 MG CR-TABS VERAPAMIL HCL Inactive LORATADINE 10 MG TABS 1 tab po qd LORATADINE 10 MG TABS 093896 LORATADINE Inactive LYRICA 50 MG CAPS 1 tab po TID LYRICA 50 MG CAPS PREGABALIN Inactive ZALEPLON 10 MG CAPS 1 cap po every other night ZALEPLON 10 MG CAPS 755755 ZALEPLON Inactive SAPHRIS 5 MG SUBL 1 tab po qd SAPHRIS 5 MG SUBL ASENAPINE MALEATE Inactive TRAZODONE HCL 50 MG TABS 1/2 tab po qd prn for anxiety TRAZODONE HCL 50 MG TABS 645926 TRAZODONE HCL Inactive LATUDA 20 MG TABS Take one by mouth daily LATUDA 20 MG TABS LURASIDONE HCL Inactive LISINOPRIL 20 MG TABS 1 tab po qd LISINOPRIL 20 MG TABS 721060 LISINOPRIL Inactive SAPHRIS 10 MG SUBL 1 [...] twice daily BACTRIM DS 800-160 MG TAB 946988 TRIMETHOPRIM-SULFAMETHOXAZOLE Inactive MULTIVITAMINS CAPS Take one by mouth daily MULTIVITAMINS CAPS MULTIPLE VITAMIN Inactive MELATONIN 3 MG CAPS 2 po q hs MELATONIN 3 MG CAPS 684000 MELATONIN Inactive KEFLEX 500 MG ORAL CAPS 1 cap QID by mouth KEFLEX 500 MG ORAL CAPS 970571 CEPHALEXIN Inactive CLINDAMYCIN HCL 150 MG CAPS 1 four times a day CLINDAMYCIN HCL 150 MG CAPS 979010 CLINDAMYCIN HCL Inactive DIFLUCAN 150 MG TAB 1 tablet by mouth daily DIFLUCAN 150 MG TAB 051056 FLUCONAZOLE Inactive PROZAC 20 MG CAP Take one by mouth daily PROZAC 20 MG CAP 570338 FLUOXETINE HCL Inactive IBUPROFEN 600 MG TAB 1 po TID PRN IBUPROFEN 600 MG TAB 590217 IBUPROFEN Inactive VYVANSE 40 MG CAPS 1 daily, VYVANSE 40 MG CAPS LISDEXAMFETAMINE DIMESYLATE Inactive TRAZODONE HCL 100 MG TAB take 1 at bedtime TRAZODONE HCL 100 MG TAB 587275 TRAZODONE HCL Inactive AMITRIPTYLINE HCL 100 MG TAB one at hs AMITRIPTYLINE HCL 100 MG TAB 703494 AMITRIPTYLINE HCL Inactive AMLODIPINE BESYLATE 5 MG TABS 1 tablet by mouth daily AMLODIPINE BESYLATE 5 MG TABS 750569 AMLODIPINE BESYLATE Inactive LATUDA 80 MG TABS Take one by mouth daily LATUDA 80 MG TABS LURASIDONE HCL Inactive SAPHRIS 5 MG SUBL 1 po bid SAPHRIS 5 MG SUBL ASENAPINE MALEATE Inactive PREDNISONE 20 MG TAB 2 tabs daily for 4 days, 1 tab daily for 4 days, 1/2 tab daily for 4 days PREDNISONE 20 MG TAB 672536 PREDNISONE Inactive AMBIEN 5 MG ORAL TABS 1 tab at bedtime AMBIEN 5 MG ORAL TABS 155854 ZOLPIDEM TARTRATE Inactive PROZAC 20 MG ORAL CAPS 1 tab daily PROZAC 20 MG ORAL CAPS 275785 FLUOXETINE HCL Inactive ABILIFY 15 MG ORAL TABS 1 tab daily ABILIFY 15 MG ORAL TABS 089805 ARIPIPRAZOLE Inactive METOPROLOL TARTRATE 50 MG TAB 1 po bid METOPROLOL TARTRATE 50 MG TAB 107146 METOPROLOL TARTRATE Inactive TRAMADOL HCL 50 MG TABS 1-2 po TID PRN Pain TRAMADOL HCL 50 MG TABS 420795 TRAMADOL HCL Inactive PIROXICAM 20 MG CAPS 1 cap po qd PRN Pain PIROXICAM 20 MG CAPS 973790 PIROXICAM Inactive MINIPRESS 2 MG CAPS 4 cap po at night MINIPRESS 2 MG CAPS 235970 PRAZOSIN HCL Inactive MIRALAX PACK 1 po qd PRN Constipation MIRALAX PACK 051058 POLYETHYLENE GLYCOL 3350 Inactive METOPROLOL TARTRATE 25 MG ORAL TABS 1/2 tablet twice daily for heart rate and blood pressure METOPROLOL TARTRATE 25 MG ORAL TABS 655303 METOPROLOL TARTRATE Inactive VALIUM 5 MG TAB Take 1-2 tablets daily VALIUM 5 MG TAB 234259 DIAZEPAM Inactive FLAGYL 500 MG TAB 1 tablet by mouth bid FLAGYL 500 MG TAB 659228 METRONIDAZOLE Inactive DICLOFENAC POTASSIUM TABS Take 1 tablet twice a day (pt. is not sure of the dose.) DICLOFENAC POTASSIUM TABS DICLOFENAC POTASSIUM TABS Inactive ZITHROMAX Z-EARNEST 250 MG TABS 2 today and then 1 daily for 4 days ZITHROMAX Z-EARNEST 250 MG TABS 2914240 AZITHROMYCIN Inactive PREDNISONE 20 MG TABS 2 daily for 5 days then 1 daily for 5 days PREDNISONE 20 MG TABS 792310 PREDNISONE Inactive PROAIR HFA 108 (90 BASE) MCG/ACT AERS 2 puffs four times a day as needed 2015 PROAIR HFA 108 (90 BASE) MCG/ACT AERS ALBUTEROL SULFATE Inactive HYDROCODONE-ACETAMINOPHEN 5-325 MG TABS 1 to 2 four times a day as needed for pain use until can be seen by specialist HYDROCODONE- ACETAMINOPHEN 5-325 MG TABS 610430 HYDROCODONE-ACETAMINOPHEN Inactive TESSALON PERLES 100 MG CAP 1 to 2 tablets by mouth 3 times daily as needed for cough TESSALON PERLES 100 MG CAP 052834 BENZONATATE Inactive CHANTIX STARTING MONTH EARNEST 0.5 [...] Pain 2015 DICLOFENAC SODIUM 50 MG TBEC 420447 DICLOFENAC SODIUM Inactive TOPAMAX 50 MG ORAL TABS 1 tab twice daily TOPAMAX 50 MG ORAL TABS 297558 TOPIRAMATE Inactive VIIBRYD 10 MG ORAL TABS Take 1 tablet once a day VIIBRYD 10 MG ORAL TABS VILAZODONE HCL Inactive LEVOFLOXACIN 500 MG ORAL TABS po daily LEVOFLOXACIN 500 MG ORAL TABS 056524 LEVOFLOXACIN Inactive METHYLPREDNISOLONE 4 MG ORAL TABS po daily METHYLPREDNISOLONE 4 MG ORAL TABS 279237 METHYLPREDNISOLONE Inactive OXYCODONE HCL ER 10 MG ORAL T12A 1/2 tab by mouth every 4 hours prn OXYCODONE HCL ER 10 MG ORAL T12A OXYCODONE HCL Inactive FLAGYL 500 MG TAB 1 tablet by mouth bid FLAGYL 500 MG TAB 105905 METRONIDAZOLE Inactive MONISTAT 7 COMBO PACK WOODROW 100 & 2 MG-% (9GM) VAG KIT 1 applicatorful per vagina q pm x 7 MONISTAT 7 COMBO PACK WOODROW 100 & 2 MG-% (9GM) VAG KIT MICONAZOLE NITRATE Inactive BACTRIM DS 800-160 MG TABS 1 twice a day BACTRIM DS 800-160 MG TABS 331906 SULFAMETHOXAZOLE-TRIMETHOPRIM Inactive TRAMADOL HCL 50 MG TABS 1/2-1 tab TID PRN TRAMADOL HCL 50 MG TABS 421401 TRAMADOL HCL Inactive ABILIFY MAINTENA 400 MG IM SUSR 400mg injection every 26 days ABILIFY MAINTENA 400 MG IM SUSR ARIPIPRAZOLE Inactive KLONOPIN 1 MG ORAL TABS 1 tab po TID KLONOPIN 1 MG ORAL TABS 128847 CLONAZEPAM Inactive ADVAIR DISKUS 250-50 MCG/DOSE INH AEPB 1 puff twice a day for asthma ADVAIR DISKUS 250-50 MCG/DOSE INH AEPB FLUTICASONE- SALMETEROL Inactive BENADRYL 25 MG CAP 4 po at bedtime for insomnia BENADRYL 25 MG CAP DIPHENHYDRAMINE HCL Inactive PREDNISONE 20 MG TABS 2 daily for 5 days then 1 daily for 5 days PREDNISONE 20 MG TABS 467507 PREDNISONE Inactive HYDROCODONE-ACETAMINOPHEN 5-325 MG ORAL TABS 1 tab two times a day HYDROCODONE-ACETAMINOPHEN 5-325 MG ORAL TABS 940622 HYDROCODONE-ACETAMINOPHEN Inactive ZITHROMAX Z-EARNEST 250 MG TABS 2 today and then 1 daily for 4 days ZITHROMAX Z-EARNEST 250 MG TABS 2145120 AZITHROMYCIN Inactive GUAIFENESIN-CODEINE 100-10 MG/5ML SYRP 5ml every 4 to 6 hours as needed for cough GUAIFENESIN-CODEINE 100-10 MG/5ML SYRP 985162 GUAIFENESIN-CODEINE Inactive HALOPERIDOL 10 MG ORAL TABS 1 tab q.d HALOPERIDOL 10 MG ORAL TABS 995188 HALOPERIDOL Inactive ASPIRIN 325 MG ORAL TABS 1 tab q.d ASPIRIN 325 MG ORAL TABS 975899 ASPIRIN Inactive FLUTICASONE PROPIONATE 50 MCG/ACT SUSP 2 sprays each nostril daily before bed. FLUTICASONE PROPIONATE 50 MCG/ACT SUSP 4237935 FLUTICASONE PROPIONATE Inactive ZOFRAN 4 MG TABS 1 po q6hr PRN Nausea ZOFRAN 4 MG TABS 198434 ONDANSETRON HCL Inactive KEFLEX 500 MG CAP 1 po qid KEFLEX 500 MG CAP 322861 CEPHALEXIN Inactive ACETAMINOPHEN-CODEINE 120-12 MG/5ML SOLN 5 ml by mouth every 4-6 hours if needed for cough ACETAMINOPHEN-CODEINE 120-12 MG/5ML SOLN 145688 ACETAMINOPHEN-CODEINE Inactive PREDNISONE 20 MG TAB 1 tablet daily x 4 days PREDNISONE 20 MG TAB 048677 PREDNISONE Inactive TROPICAMIDE 0.5 % OPHTH SOLN 1 drop PRN eye spasms TROPICAMIDE 0.5 % OPHTH SOLN 815968 TROPICAMIDE Inactive LEVAQUIN 500 MG TABS 1 daily for infection LEVAQUIN 500 MG TABS 292173 LEVOFLOXACIN Inactive PREDNISONE 10 MG TABS 2 daily for 5 days then 1 daily for 5 days PREDNISONE 10 MG TABS 790484 PREDNISONE Inactive EQ NICOTINE 21 MG/24HR TRANS [...] AMITIZA 8 MCG ORAL CAPS LUBIPROSTONE Inactive CEFDINIR 300 MG CAPS by mouth twice a day CEFDINIR 300 MG CAPS 934652 CEFDINIR Inactive PREDNISONE 20 MG TAB 2 tabs daily for 3 days, 1 tab daily for 3 days, 1/2 tab daily for 2 days PREDNISONE 20 MG TAB 666245 PREDNISONE Inactive BACTRIM DS 800-160 MG TABS 1 po BID x 7 days BACTRIM DS 800-160 MG TABS 19820521 SULFAMETHOXAZOLE-TRIMETHOPRIM Inactive DIFLUCAN 150 MG TABS 1 pill every other day x 2 doses DIFLUCAN 150 MG TABS 965958 FLUCONAZOLE Inactive BACTRIM DS 800-160 MG TABS 1 pill by mouth twice daily BACTRIM DS 800-160 MG TABS [id number] SULFAMETHOXAZOLE-TRIMETHOPRIM Inactive KEFLEX 500 MG CAP 1 po TID x 10 days KEFLEX 500 MG CAP [id number] CEPHALEXIN Inactive Advance Directives Directive Description Start [...] E&M - 3141-9 281.5 [lb_av] Weight Measured Diagnostic Results Date Name [...] % 11.0-15.0 platelet count 443 THOUSAND/UL 10*3/mm3 544-160 6738/03/01 mean platelet volume 8.2 fL 7.5-12.5 leukocyte [...] % 11.0-15.0 platelet count 349 THOUSAND/UL 10*3/mm3 798-548 0955/04/12 mean platelet volume 8.4 fL 7.5-12.5 Lab [...] 369 10^3/MM^3 10*3/mm3 142-424 Lab Report: Chlamydia/GC APTIMA/[id number] - Lab chlamydia DNA probe NOT DETECTED NOT DETECTED Lab Report: Chlamydia/GC APTIMA/[id number] - Microbiology Neisseria gonorrhoeae DNA probe NOT DETECTED NOT DETECTED Lab Report: Chlamydia/GC APTIMA/[id number], Urinalysis, Complete, with Reflex ... - Lab chlamydia DNA probe NOT DETECTED NOT DETECTED Lab Report: Chlamydia/GC APTIMA/[id number], Urinalysis, Complete, with Reflex ... - Microbiology Neisseria gonorrhoeae DNA probe NOT DETECTED NOT DETECTED Lab Report: Chlamydia/GC APTIMA/49336, Urinalysis, Complete, with Reflex ... - Urinalysis microalbumin/total urine volume 2 mg/L Units converted. See lab report for original value. microalbumin/creatinine ratio, urine 9 MCG/MG CREAT mg/L <30 Lab Report: Comp. Metabolic Panel - Chemistry sodium, serum 140 mmol/L 383-053 5637/08/08 carbon dioxide, venous blood 33.7 mmol/L 21.0-32.0 [...] - Chemistry RBC, urine, dipstick 1+ Negative RBC, urine, [...] mg/dL Encounters Code Encounter Date Provider Facility CPT-59013 Level 4 Est. Patient 10:49:34 CDT Suzan Boo [facility] CPT-57015 Level 3 Est. Patient 10:00:25 CDT Suzan Boo [facility] CPT-03474 Level 3 Est. Patient 10:29:30 CDT Suzan Boo [facility] CPT-83630 Level 3 Est. Patient 11:04:38 CDT Renzo Thornton [facility] CPT-82038 Level 3 Est. Patient 11:15:58 VB NET DEVELOPER Renzo Thornton [facility] CPT-72253 Level 3 Est. Patient 15:28:23 VB NET DEVELOPER Suzan Boo [facility] CPT-71664 Level 4 Est. Patient 10:20:54 VB NET DEVELOPER Suzan Boo [facility] CPT-66230 Level 3 Est. Patient 11:47:37 VB NET DEVELOPER Ahmet Carbajal MD [facility] CPT-06927 Level 3 Est. Patient 10:40:11 VB NET DEVELOPER Ahmet Carbajal MD [facility] CPT-36279 Level 3 Est. Patient 15:07:06 VB NET DEVELOPER Neeraj Collins MD [facility] CPT-00151 Level 4 Est. Patient 14:45:00 VB NET DEVELOPER Ahmet Carbajal MD [facility] CPT-22911 Level 3 Est. Patient 13:59:59 CDT Luigi Martínez [facility] CPT-32376 Level 3 Est. Patient 18:18:53 CDT Neeraj Collins MD [facility] CPT-49293 Level 3 Est. Patient 15:50:44 CDT Vishal Hui MD [facility] CPT-04787 Level 3 Est. Patient 11:36:17 CDT Ahmet Carbajal MD [facility] CPT-01176 Level 3 Est. Patient 13:29:16 CDT Vishal Hui MD [facility] CPT-36205 Level 3 Est. Patient 14:27:52 CDT Neeraj Collins MD [facility] CPT-30926 Level 3 Est. Patient 08:56:03 CDT Luigi Martínez [facility] CPT-57335 Level 4 Est. Patient 12:11:48 CDT Fabiola Johnson [facility] CPT-31207 Level 3 New Patient 16:53:37 CDT Albert Caldera MD [facility] CPT-43344 Level 3 Est. Patient 11:25:49 CDT Renzo Thornton DO [facility] CPT-42820 Level 3 Est. Patient 15:22:01 CDT Ahmet Carbajal MD [facility] CPT-58893 Level 4 Est. Patient 09:00:51 VB NET DEVELOPER Vishal Hui MD [facility] CPT-45386 Level 3 Est. Patient 11:37:33 VB NET DEVELOPER Vishal Hui MD [facility] CPT-10590 Level 3 Est. Patient 08:41:09 VB NET DEVELOPER Vishal Hui MD [facility] CPT-71396 Level 4 Est. Patient 10:19:35 VB NET DEVELOPER Vishal Hui MD [facility] CPT-20793 Level 3 Est. Patient 13:35:45 CDT Vishal Hui MD [facility] CPT-14154 Level 4 Est. Patient 10:08:37 CDT Vishal Hui MD [facility]-43556 Level 3 Est. Patient 11:22:10 CDT Vishal Hui MD [facility] CPT-99448 Level 3 Est. Patient 11:03:32 CDT Sahara Rodriguez MD [facility]-15246 Level 3 Est. Patient 09:41:35 CDT Vishal Hui MD [facility]-82161 Level 3 Est. Patient 12:00:41 CDT Neeraj Collins MD [facility]-32004 Level 3 Est. Patient 09:16:24 CDT Vishal Hui MD [facility] CPT-45532 Level 4 Est. Patient 13:59:09 CDT Neeraj Collins MD [facility] CPT-97702 Level 3 Est. Patient 15:19:43 CDT Renzo Thornton DO [facility] CPT-24189 Level 3 Est. Patient 18:10:26 CDT Sahara Rodriguez MD [facility]-02129 Level 3 Est. Patient 14:49:50 CDT Vishal Hui MD [facility] CPT-19615 Level 4 Est. Patient 18:41:46 CDT Neeraj Collins MD [facility] CPT-83378 Level 4 Est. Patient 09:18:38 VB NET DEVELOPER Vishal Hui MD [facility]-00437 Level 3 Est. Patient 14:43:55 VB NET DEVELOPER Vishal Hui MD [facility] CPT-68047 Level 3 Est. Patient 15:26:33 VB NET DEVELOPER Sahara Rodriguez MD PhD [facility]-46834 Level 3 Est. Patient 10:32:14 VB NET DEVELOPER Vishal Hui MD [facility] CPT-84769 Level 3 Est. Patient 15:12:52 VB NET DEVELOPER Vishal Hui MD [facility] CPT-32444 Level 4 Est. Patient 09:19:27 CDT Vishal Hui MD [facility] CPT-13292 Level 3 Est. Patient 15:53:[address] [facility] CPT-61177 Level 3 Est. Patient 15:50:[address] [facility] CPT-73667 Level 3 Est. Patient 16:55:24 CDT Vishal Hui MD [facility] Procedures Code Procedure Name Date Entry Date Standard Description CPT-05984 Venipuncture Draw Fee 08:41:12 CDT CPT-16030 Abd compl w upright - XRAY USE ONLY 10:27:59 CDT 06/28 CPT-62869 Smoking Cessation counseling 11:15:58 VB NET DEVELOPER CPT-G0439 [facility] Annual Wellness Exam 09:30:58 VB NET DEVELOPER CPT-92534 TSH - LAB USE ONLY 08:50:26 VB NET DEVELOPER CPT-43967 CBC - LAB USE ONLY 08:50:26 VB NET DEVELOPER CPT-94749 Venipuncture Draw Fee 08:50:26 VB NET DEVELOPER CPT-77255 Abx/Therapy Injection 17:34:30 VB NET DEVELOPER CPT-58090 Nexplanon Removal with Reinsertion 14:09:32 CDT CPT-J7307 Nexplanon (Implant) 14:09:32 CDT CPT-OV Office Visit 14:09:32 CDT CPT-71567 UA w micro - LAB USE ONLY 16:21:13 CDT CPT-66982 Wet Mount - LAB USE ONLY 16:21:13 CDT CPT-47080 First Vx - Ix admin for Medicare patients 14:37:47 CDT CPT-13181 Fluzone Preservative Free Intramuscular Suspension 14:37 :47 CDT CPT-11176 Abx/Therapy Injection 13:54:22 CDT CPT-45341 Abx/Therapy Injection 08:47:09 CDT CPT-51812 Abx/Therapy Injection 13:29:56 CDT CPT-14150 Abx/Therapy Injection 08:36:16 CDT CPT-53110 Wet [place] - LAB USE ONLY 17:44:58 CDT CPT-19448 UA w micro - LAB USE ONLY 17:44:58 CDT CPT-49951 CMP - LAB USE ONLY 17:44:58 CDT CPT-13835 Venipuncture Draw Fee 17:44:58 CDT CPT-87906 Cervical Min 4V - XRAY USE ONLY 09:01:40 CDT CPT-43480 Chest 2V Frontal and Lat - XRAY USE ONLY 11:06:31 CDT CPT-09389 EKG Trac and Interp - XRAY USE ONLY 11:31:43 CDT 08/26 CPT-J3420 Vitamin B12 1000mcg (Cyanocobalamin) 08:10:26 VB NET DEVELOPER 04/12 CPT-15520 Abx/Therapy Injection 08:10:26 VB NET DEVELOPER CPT-G0438 Initial Annual Wellness Exam 19:01:01 VB NET DEVELOPER CPT-J3420 Vitamin B12 1000mcg (Cyanocobalamin) 16:57:46 CDT 08/14 CPT-01560 Recombivax HB Injection Suspension 5 MCG/0.5ML 08:37:50 VB NET DEVELOPER CPT-55423 Immunization Single Admin 08:37:50 VB NET DEVELOPER CPT-J3420 Vitamin B12 1000mcg (Cyanocobalamin) 08:32:16 VB NET DEVELOPER 03/11 CPT-02125 Abx/Therapy Injection 08:32:16 VB NET DEVELOPER CPT-28314 Chest 2V Frontal and Lat 11:46:38 VB NET DEVELOPER CPT-99300 Venipuncture Draw Fee 09:12:45 VB NET DEVELOPER CPT-J3420 Vitamin B12 1000mcg (Cyanocobalamin) 08:50:15 VB NET DEVELOPER 02/08 CPT-75760 Abx/Therapy Injection 08:50:15 VB NET DEVELOPER CPT-Cryo Cryotherapy 10:19:35 VB NET DEVELOPER CPT-000 Give Appropriate Flu Vaccine 09:22:16 CDT CPT-J3420 Vitamin B12 1000mcg (Cyanocobalamin) 19:08:57 CDT 01/11 CPT-24767 Abx/Therapy Injection 19:08:57 CDT CPT-J3420 Vitamin B12 1000mcg (Cyanocobalamin) 08:19:08 CDT 12/11 CPT-64399 Abx/Therapy Injection 08:19:08 CDT CPT-J3420 Vitamin B12 1000mcg (Cyanocobalamin) 14:48:00 CDT 11/09 CPT-27354 Abx/Therapy Injection 14:47:59 CDT CPT-J3420 Vitamin B12 1000mcg (Cyanocobalamin) 08:34:04 CDT 10/09 CPT-06891 Abx/Therapy Injection 08:34:04 CDT CPT-J3420 Vitamin B12 1000mcg (Cyanocobalamin) 09:18:52 CDT 09/11 CPT-68674 Abx/Therapy Injection 09:18:52 CDT CPT-J3420 Vitamin B12 1000mcg (Cyanocobalamin) 08:35:44 CDT 09/04 CPT-79776 Abx/Therapy Injection 08:35:44 CDT CPT-65477 Immunization Single Admin 11:07:16 CDT CPT-98819 Hepatitis B adult IM 11:07:16 CDT CPT-J3420 Vitamin B12 1000mcg (Cyanocobalamin) 11:00:49 CDT 08/28 CPT-J1040 Depo Medrol 80 mg (Methyl Prednisolone Acetate) 11:00: 49 CDT CPT-41384 Abx/Therapy Injection 11:00:49 CDT CPT-J1040 Depo Medrol 80 mg (Methyl Prednisolone Acetate) 09:16: 23 CDT CPT-J3420 Vitamin B12 1000mcg (Cyanocobalamin) 08:27:05 CDT 08/20 CPT-48685 Abx/Therapy Injection 08:27:05 CDT CPT-50500 Recombivax HB Injection Suspension 5 MCG/0.5ML 10:00:41 CDT CPT-58595 Administration single or combination vaccine inc oral 10 :00:41 CDT CPT-65093 Sono transvag pelvis non OB uterus ovaries cervix 16:36: 57 CDT CPT-90118 LS spine comp w obliq 09:50:55 VB NET DEVELOPER CPT-84810 Abd compl w upright 09:50:55 VB NET DEVELOPER CPT-J1100 Decadron 4mg (Dexamethasone) 15:51:24 VB NET DEVELOPER CPT-J1030 Depo Medrol 40 mg (Methyl Prednisolone Acetate) 15:51: 24 VB NET DEVELOPER CPT-17199 Abx/Therapy Injection 15:51:24 VB NET DEVELOPER CPT-J1100 Decadron 4mg (Dexamethasone) 15:26:33 VB NET DEVELOPER CPT-J1030 Depo Medrol 40 mg (Methyl Prednisolone Acetate) 15:26: 33 VB NET DEVELOPER CPT-39249 Sono retroperitoneal complete kidneys and bladder 17:15: 30 CDT CPT-08125 Abd compl w upright 16:09:25 CDT CPT-J1100 Decadron 8mg (Dexamethasone) 17:07:57 CDT CPT-23923 Abx/Therapy Injection 17:07:57 CDT CPT-J1100 Decadron 8mg (Dexamethasone) 16:55:24 CDT CPT-65471 Chest 2V Frontal and Lat 16:32:44 CDT
--- OUTSIDE RECORDS SUMMARY | 2016-11-04 12:47 | XMS REPORT | Clinical Summary ---
Author Author Admin, E Organization [employer] Address Unknown Phone Unavailable Allergies, Adverse Reactions, [...] not elsewhere classified Hypertension 401.9 Active Vishal Hiu MD Unspecified [...] every other day x 2 doses FLUCONAZOLE 79125395834 Active Sahara Rodriguez MD PhD Active MELATONIN 3 MG CAPS 2 po q hs MELATONIN 27994644730 No Longer Active Sahara Rodriguez MD PhD Active MULTIVITAMINS CAPS Take one by mouth daily MULTIPLE VITAMIN 41883227524 No Longer Active Sahara Rodriguez MD PhD Active BACTRIM DS 800-160 MG TAB 1 tab by mouth twice daily TRIMETHOPRIM-SULFAMETHOXAZOLE 14031593918 No Longer Active Sahara Rodriguez MD PhD Active [employer] PROBIOTIC ORAL CHEW 2 daily po PROBIOTIC PRODUCT 08054050371 No Longer Active Sahara Rodriguez MD PhD Active IBUPROFEN 600 MG TAB 1 po TID PRN IBUPROFEN 95736272670 Active Luigi Martínez CLINICAL 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 Active BACTRIM DS 800-160 MG TABS 1 po BID x 7 days SULFAMETHOXAZOLE-TRIMETHOPRIM 04630083589 No Longer Active Vishal Hui MD Active CHANTIX STARTING MONTH EARNEST 0.5 MG X 11 & 1 MG X 42 TABS 0.5mg daily for 3 days , then 0.5mg BID for 4 days, then 1mg BID VARENICLINE TARTRATE 66527440510 No Longer Active TAMARA Gray Active METOPROLOL TARTRATE 50 MG TAB 1 po bid METOPROLOL TARTRATE 86108777235 Active Vishal Hui MD Active TRAZODONE HCL 100 MG TAB take 1 at bedtime TRAZODONE HCL 01396933633 Active Vishal Hui MD Active AMLODIPINE BESYLATE 5 MG TABS 1 tablet by mouth daily AMLODIPINE BESYLATE 37827659972 Active Vishal Hui MD Active VERAPAMIL HCL CR 120 MG TAB CR 1 po bid VERAPAMIL HCL 05714444799 No Longer Active Vishal Hui MD Active METOPROLOL SUCCINATE 50 MG TB24 1 tablet by mouth daily METOPROLOL SUCCINATE 19348851951 No Longer Active Vishal Hui MD Active TRAMADOL HCL 50 MG TABS 1-2 po TID PRN Pain TRAMADOL HCL 71872084926 Active Vishal Hui MD Active SAPHRIS 5 MG SUBL 1 po bid ASENAPINE MALEATE 09074965569 Active Vishal Hui MD Active SAPHRIS 10 MG SUBL 1 tab po bid ASENAPINE MALEATE 52306071858 No Longer Active Vishal Hui MD Active LISINOPRIL 20 MG TABS 1 tab po qd LISINOPRIL 31209825641 No Longer Active Vishal Hui MD Active BENADRYL 25 MG CAP 2 po tid prn anxiety DIPHENHYDRAMINE HCL 61780437437 Active Vishal Hui MD Active LATUDA 80 MG TABS Take one by mouth daily LURASIDONE HCL 14736490413 Active Vishal Hui MD Active LATUDA 20 MG TABS Take one by mouth daily LURASIDONE HCL 98584923679 No Longer Active Vishal Hui MD Active TRAZODONE HCL 50 MG TABS 1/2 tab po qd prn for anxiety TRAZODONE HCL 55678452974 No Longer Active Vishal Hui MD Active PIROXICAM 20 MG CAPS 1 cap po qd PRN Pain PIROXICAM 30543233424 Active Vishal Hui MD Active OMEPRAZOLE 20 MG TBEC 1 po q a.m. 30min prior to first food intake OMEPRAZOLE 25781256038 Active Vishal Hui MD Active RANITIDINE HCL 150 MG CAPS 1 twice a day RANITIDINE HCL 28354122272 Active Vishal Hui MD Active PROZAC 20 MG CAP Take one by mouth daily FLUOXETINE HCL 85349165975 Active Vishal Hui MD Active LINZESS 290 MCG CAPS Take one by mouth daily LINACLOTIDE 18601142056 Active Vishal Hui MD Active SAPHRIS 5 MG SUBL 1 tab po qd ASENAPINE MALEATE 90105841138 No Longer Active Vishal Hui MD Active ZALEPLON 10 MG CAPS 1 cap po every other night ZALEPLON 02355005575 No Longer Active Vishal Hui MD Active LYRICA 50 MG CAPS 1 tab po TID PREGABALIN 06389527056 No Longer Active Vishal Hui MD Active LORATADINE 10 MG TABS 1 tab po qd LORATADINE 22066431987 No Longer Active Vishal Hui MD Active VERAPAMIL HCL ER 180 MG CR-TABS 1 tab po bid VERAPAMIL HCL 50369643403 No Longer Active Vishal Hui MD Active MIRALAX POWD 1 capfull once daily POLYETHYLENE GLYCOL 3350 06872320997 No Longer Active Vishal Hui MD Active PREDNISONE 20 MG TABS 1 tab po qd PREDNISONE 61143278289 No Longer Active Renzo Thornton DO Active LEVOFLOXACIN 500 MG TABS 1 tab po qd LEVOFLOXACIN 66436873681 No Longer Active Renzo Thornton DO Active BUSPIRONE HCL 15 MG TABS 1 tab po TID BUSPIRONE HCL 31412063429 No Longer Active Renzo Thornton DO Active BENZTROPINE MESYLATE 1 MG TABS 1 tab po qd BENZTROPINE MESYLATE 92837232003 No Longer Active Renzo Thornton DO Active ATENOLOL 25 MG TABS 1 tab po qd ATENOLOL 51026450272 No Longer Active Renzo Thornton DO Active ESCITALOPRAM OXALATE 20 MG TABS 1 tab po qd ESCITALOPRAM OXALATE 51625084253 No Longer Active Renzo Thornton DO Active ADVAIR DISKUS 250-50 MCG/DOSE AEPB 1 puff BID FLUTICASONE-SALMETEROL 18256224285 No Longer Active Renzo Thornton DO Active PREDNISONE 20 MG TAB 2 tabs daily for 3 days, 1 tab daily for 3 days, 1/2 tab daily for 2 days PREDNISONE 35036514238 No Longer Active Vishal Hui MD Active CEFDINIR 300 MG CAPS by mouth twice a day CEFDINIR 98323894669 No Longer Active Vishal Hui MD Active LANSOPRAZOLE 30 MG CPDR 1 cap po qd LANSOPRAZOLE 33599361046 No Longer Active Vishal Hui MD Active TOPAMAX 25 MG TABS 1 tab po bid TOPIRAMATE 73741189874 Active Vishal Hui MD Active MINIPRESS 2 MG CAPS 1 cap po at night PRAZOSIN HCL 46351490291 Active Vishal Hui MD Active BACLOFEN 20 MG TABS 1 tab po tid BACLOFEN 37339495588 Active Vishal Hui MD Active ADVAIR DISKUS 250-50 MCG/DOSE AEPB 1 puff BID ADVAIR DISKUS 250-50 MCG/DOSE AEPB FLUTICASONE-SALMETEROL Inactive ESCITALOPRAM OXALATE 20 MG TABS 1 tab po qd ESCITALOPRAM OXALATE 20 MG TABS 739732 ESCITALOPRAM OXALATE Inactive ATENOLOL 25 MG TABS 1 tab po qd ATENOLOL 25 MG TABS 919564 ATENOLOL Inactive BENZTROPINE MESYLATE 1 MG TABS 1 tab po qd BENZTROPINE MESYLATE 1 MG TABS 434979 BENZTROPINE MESYLATE Inactive BUSPIRONE HCL 15 MG TABS 1 tab po TID BUSPIRONE HCL 15 MG TABS 374751 BUSPIRONE HCL Inactive LEVOFLOXACIN 500 MG TABS 1 tab po qd LEVOFLOXACIN 500 MG TABS 003023 LEVOFLOXACIN Inactive PREDNISONE 20 MG TABS 1 tab po qd PREDNISONE 20 MG TABS 749210 PREDNISONE Inactive MIRALAX POWD 1 capfull once daily MIRALAX POWD 950575 POLYETHYLENE GLYCOL 3350 Inactive VERAPAMIL HCL ER 180 MG CR-TABS 1 tab po bid VERAPAMIL HCL ER 180 MG CR-TABS VERAPAMIL HCL Inactive LORATADINE 10 MG TABS 1 tab po qd LORATADINE 10 MG TABS 829914 LORATADINE Inactive LYRICA 50 MG CAPS 1 tab po TID LYRICA 50 MG CAPS PREGABALIN Inactive ZALEPLON 10 MG CAPS 1 cap po every other night ZALEPLON 10 MG CAPS 161520 ZALEPLON Inactive SAPHRIS 5 MG SUBL 1 tab po qd SAPHRIS 5 MG SUBL ASENAPINE MALEATE Inactive TRAZODONE HCL 50 MG TABS 1/2 tab po qd prn for anxiety TRAZODONE HCL 50 MG TABS 125945 TRAZODONE HCL Inactive LATUDA 20 MG TABS Take one by mouth daily LATUDA 20 MG TABS LURASIDONE HCL Inactive LISINOPRIL 20 MG TABS 1 tab po qd LISINOPRIL 20 MG TABS 014463 LISINOPRIL Inactive SAPHRIS 10 MG SUBL 1 [...] for 2 days PREDNISONE 20 MG TAB 437698 PREDNISONE Inactive BACTRIM DS 800-160 MG TABS [...] Panel - Chemistry sodium, serum 141 mmol/L 905-617 7265 potassium, serum 4.3 mmol/L 3.5-5.2 chloride, serum [...] Panel - Chemistry sodium, serum 139 mmol/L 250-295 4937/12/31 potassium, serum 4.8 mmol/L 3.5-5.2 chloride, serum 106 mmol/L 98-107 carbon dioxide, venous blood 24.3 mmol/L 21.0-32.0 blood glucose 90 mg/dL 65-110 urea nitrogen, blood 16 mg/dL 7-18 creatinine, serum 1.00 mg/dL 0.60-1.30 alanine aminotransferase (SGPT), serum 41 U/L 12-78 aspartate aminotransferase (SGOT), serum 17 U/L 15-37 calcium, serum 8.6 mg/dL 8.5-10.1 bilirubin, serum, total 0.30 mg/dL 0.00-1.00 cholesterol, serum 108 mg/dL 578-160 8905/12/31 triglyceride, serum, fasting 120 mg/dL 30-200 HDL [...] semiquantitative 7.0 5.0-8.5 Lab Report: Varicella-Zoater Inga IgG,IgM/30325, HEP Be Antibody/556, RUB ... - Serology rubella antibody, serum, IgG 2.88 Encounters Code Encounter Date Provider Facility [facility]-65614 Level 3 Est. Patient 18:10:26 CDT Sahara Rodriguez MD PhD [facility]16039 Level 3 Est. Patient 14:49:50 CDT Vishal Hui MD [facility]-27076 Level 4 Est. Patient 18:41:46 CDT Neeraj Collins MD [facility]-93490 Level 4 Est. Patient 09:18:38 MS SQL SERVER DEVELOPER Vishal Hui MD [facility]-35991 Level 3 Est. Patient 14:43:55 MS SQL SERVER DEVELOPER Vishal Hui MD [facility]-05449 Level 3 Est. Patient 15:26:33 MS SQL SERVER DEVELOPER Sahara Rodriguez MD PhD [facility]36474 Level 3 Est. Patient 10:32:14 MS SQL SERVER DEVELOPER Vishal Hui MD [facility]-50641 Level 3 Est. Patient 15:12:52 MS SQL SERVER DEVELOPER Vishal Hui MD [facility]-35866 Level 4 Est. Patient 09:19:27 CDT Vishal Hui MD [facility]-85217 Level 3 Est. Patient 15:53:00 CDT Renzo Thornton [facility] CPT-94180 Level 3 Est. Patient 15:50:30 CDT Renzo Thornton [facility] CPT-79946 Level 3 Est. Patient 16:55:24 CDT Vishal Hui MD [facility] Procedures Code Procedure Name Date Entry Date Standard Description CPT-11574 Recombivax HB Injection Suspension 5 MCG/0.5ML 10:00:41 CDT CPT-06307 Administration single or combination vaccine inc oral 10 :00:41 CDT CPT-25245 Sono transvag pelvis non OB uterus ovaries cervix 16:36: 57 CDT CPT-93390 LS spine comp w obliq 09:50:55 MS SQL SERVER DEVELOPER CPT-03916 Abd compl w upright 09:50:55 MS SQL SERVER DEVELOPER CPT-J1100 Decadron 4mg (Dexamethasone) 15:51:24 MS SQL SERVER DEVELOPER CPT-J1030 Depo Medrol 40 mg (Methyl Prednisolone Acetate) 15:51: 24 MS SQL SERVER DEVELOPER CPT-59736 Abx/Therapy Injection 15:51:24 MS SQL SERVER DEVELOPER CPT-J1100 Decadron 4mg (Dexamethasone) 15:26:33 MS SQL SERVER DEVELOPER CPT-J1030 Depo Medrol 40 mg (Methyl Prednisolone Acetate) 15:26: 33 MS SQL SERVER DEVELOPER CPT-28192 Sono retroperitoneal complete kidneys and bladder 17:15: 30 CDT CPT-22851 Abd compl w upright 16:09:25 CDT CPT-J1100 Decadron 8mg (Dexamethasone) 17:07:57 CDT CPT-67383 Abx/Therapy Injection 17:07:57 CDT CPT-J1100 Decadron 8mg (Dexamethasone) 16:55:24 CDT CPT-73088 Chest 2V Frontal and Lat 16:32:44 CDT
--- OUTSIDE RECORDS SUMMARY | 2016-11-04 12:48 | XMS REPORT | Clinical Summary ---
Author Author Admin, E Organization [facility] Address Unknown Phone Unavailable Allergies, Adverse Reactions, [...] Standard Description Annotate Asthma 493.90 Active Vishal uHi MD Asthma, unspecified Anxiety Disorder 300.00 Active [...] ORAL CHEW 2 daily po PROBIOTIC PRODUCT 14136388549 Active Jillina Frazell PATTERN CARRIER Active IBUPROFEN 600 MG TAB 1 po TID PRN IBUPROFEN 86949063329 Active Jillina Frazell PATTERN CARRIER Active BACTRIM DS 800-160 MG TAB 1 tab by mouth twice daily TRIMETHOPRIM-SULFAMETHOXAZOLE 41757309609 Active Neeraj Collins MD Active BACTRIM DS 800-160 MG TABS 1 po BID x 7 days SULFAMETHOXAZOLE-TRIMETHOPRIM 22606000344 No Longer Active Vishal Hui MD Active CHANTIX STARTING MONTH EARNETS 0.5 MG X 11 & 1 MG X 42 TABS 0.5mg daily for 3 days , then 0.5mg BID for 4 days, then 1mg BID VARENICLINE TARTRATE 55729830643 No Longer Active TAMARA Gray Active METOPROLOL TARTRATE 50 MG TAB 1 po bid METOPROLOL TARTRATE 63098707998 Active Vishal Hui MD Active TRAZODONE HCL 100 MG TAB take 1 at bedtime TRAZODONE HCL 20357472847 Active Vishal Hui MD Active AMLODIPINE BESYLATE 5 MG TABS 1 tablet by mouth daily AMLODIPINE BESYLATE 03425133102 Active Vishal Hui MD Active VERAPAMIL HCL CR 120 MG TAB CR 1 po bid VERAPAMIL HCL 49877499959 No Longer Active Vishal Hui MD Active METOPROLOL SUCCINATE 50 MG TB24 1 tablet by mouth daily METOPROLOL SUCCINATE 70150721399 No Longer Active Vishal Hui MD Active TRAMADOL HCL 50 MG TABS 1-2 po TID PRN Pain TRAMADOL HCL 96527728640 Active Vishal Hui MD Active SAPHRIS 5 MG SUBL 1 po bid ASENAPINE MALEATE 72657654341 Active Vishal Hui MD Active SAPHRIS 10 MG SUBL 1 tab po bid ASENAPINE MALEATE 50442725952 No Longer Active Vishal Hui MD Active LISINOPRIL 20 MG TABS 1 tab po qd LISINOPRIL 78431157063 No Longer Active Vishal Hui MD Active BENADRYL 25 MG CAP 2 po tid prn anxiety DIPHENHYDRAMINE HCL 41592954732 Active Vishal Hui MD Active LATUDA 80 MG TABS Take one by mouth daily LURASIDONE HCL 63772894467 Active Vishal Hui MD Active LATUDA 20 MG TABS Take one by mouth daily LURASIDONE HCL 96193833746 No Longer Active Vishal Hui MD Active TRAZODONE HCL 50 MG TABS 1/2 tab po qd prn for anxiety TRAZODONE HCL 58874127106 No Longer Active Vishal Hui MD Active PIROXICAM 20 MG CAPS 1 cap po qd PRN Pain PIROXICAM 74126751000 Active Vishal Hui MD Active OMEPRAZOLE 20 MG TBEC 1 po q a.m. 30min prior to first food intake OMEPRAZOLE 76512415448 Active Vishal Hui MD Active RANITIDINE HCL 150 MG CAPS 1 twice a day RANITIDINE HCL 42431186217 Active Vishal Hui MD Active MULTIVITAMINS CAPS Take one by mouth daily MULTIPLE VITAMIN 65555586095 Active Vishal Hui MD Active MELATONIN 3 MG CAPS 2 po q hs MELATONIN 86238820554 Active Vishal Hui MD Active PROZAC 20 MG CAP Take one by mouth daily FLUOXETINE HCL 74601871552 Active Vishal Hui MD Active LINZESS 290 MCG CAPS Take one by mouth daily LINACLOTIDE 66461452797 Active Vishal Hui MD Active SAPHRIS 5 MG SUBL 1 tab po qd ASENAPINE MALEATE 00441819123 No Longer Active Vishal Hui MD Active ZALEPLON 10 MG CAPS 1 cap po every other night ZALEPLON 30813176112 No Longer Active Vishal Hui MD Active LYRICA 50 MG CAPS 1 tab po TID PREGABALIN 77996575925 No Longer Active Vishal Hui MD Active LORATADINE 10 MG TABS 1 tab po qd LORATADINE 35113912885 No Longer Active Vishal Hui MD Active VERAPAMIL HCL ER 180 MG CR-TABS 1 tab po bid VERAPAMIL HCL 97618694751 No Longer Active Vishal Hui MD Active MIRALAX POWD 1 capfull once daily POLYETHYLENE GLYCOL 3350 52184788250 No Longer Active Vishal Hui MD Active PREDNISONE 20 MG TABS 1 tab po qd PREDNISONE 40904301197 No Longer Active Renzo Thornton DO Active LEVOFLOXACIN 500 MG TABS 1 tab po qd LEVOFLOXACIN 00494455165 No Longer Active Renzo Thornton DO Active BUSPIRONE HCL 15 MG TABS 1 tab po TID BUSPIRONE HCL 27593780359 No Longer Active Renzo Thornton DO Active BENZTROPINE MESYLATE 1 MG TABS 1 tab po qd BENZTROPINE MESYLATE 08567159016 No Longer Active Renzo Thornton DO Active ATENOLOL 25 MG TABS 1 tab po qd ATENOLOL 64845103337 No Longer Active Renzo Thornton DO Active ESCITALOPRAM OXALATE 20 MG TABS 1 tab po qd ESCITALOPRAM OXALATE 19403992637 No Longer Active Renzo Thornton DO Active ADVAIR DISKUS 250-50 MCG/DOSE AEPB 1 puff BID FLUTICASONE-SALMETEROL 16122375474 No Longer Active Renzo Thornton DO Active PREDNISONE 20 MG TAB 2 tabs daily for 3 days, 1 tab daily for 3 days, 1/2 tab daily for 2 days PREDNISONE 95182384575 No Longer Active Vishal Hui MD Active CEFDINIR 300 MG CAPS by mouth twice a day CEFDINIR 79567699620 No Longer Active Vishal Hui MD Active LANSOPRAZOLE 30 MG CPDR 1 cap po qd LANSOPRAZOLE 96555344767 No Longer Active Vishal Hui MD Active TOPAMAX 25 MG TABS 1 tab po bid TOPIRAMATE 93244403539 Active Vishal Hui MD Active MINIPRESS 2 MG CAPS 1 cap po at night PRAZOSIN HCL 27765827465 Active Vishal Hui MD Active BACLOFEN 20 MG TABS 1 tab po tid BACLOFEN 03304052835 Active Vishal Hui MD Active ADVAIR DISKUS 250-50 MCG/DOSE AEPB 1 puff BID ADVAIR DISKUS 250-50 MCG/DOSE AEPB FLUTICASONE-SALMETEROL Inactive ESCITALOPRAM OXALATE 20 MG TABS 1 tab po qd ESCITALOPRAM OXALATE 20 MG TABS 224356 ESCITALOPRAM OXALATE Inactive ATENOLOL 25 MG TABS 1 tab po qd ATENOLOL 25 MG TABS 691845 ATENOLOL Inactive BENZTROPINE MESYLATE 1 MG TABS 1 tab po qd BENZTROPINE MESYLATE 1 MG TABS 087590 BENZTROPINE MESYLATE Inactive BUSPIRONE HCL 15 MG TABS 1 tab po TID BUSPIRONE HCL 15 MG TABS 276434 BUSPIRONE HCL Inactive LEVOFLOXACIN 500 MG TABS 1 tab po qd LEVOFLOXACIN 500 MG TABS 833376 LEVOFLOXACIN Inactive PREDNISONE 20 MG TABS 1 tab po qd PREDNISONE 20 MG TABS 010741 PREDNISONE Inactive MIRALAX POWD 1 capfull once daily MIRALAX POWD 471038 POLYETHYLENE GLYCOL 3350 Inactive VERAPAMIL HCL ER 180 MG CR-TABS 1 tab po bid VERAPAMIL HCL ER 180 MG CR-TABS VERAPAMIL HCL Inactive LORATADINE 10 MG TABS 1 tab po qd LORATADINE 10 MG TABS 042261 LORATADINE Inactive LYRICA 50 MG CAPS 1 tab po TID LYRICA 50 MG CAPS PREGABALIN Inactive ZALEPLON 10 MG CAPS 1 cap po every other night ZALEPLON 10 MG CAPS 316560 ZALEPLON Inactive SAPHRIS 5 MG SUBL 1 tab po qd SAPHRIS 5 MG SUBL ASENAPINE MALEATE Inactive TRAZODONE HCL 50 MG TABS 1/2 tab po qd prn for anxiety TRAZODONE HCL 50 MG TABS 909503 TRAZODONE HCL Inactive LATUDA 20 MG TABS Take one by mouth daily LATUDA 20 MG TABS LURASIDONE HCL Inactive LISINOPRIL 20 MG TABS 1 tab po qd LISINOPRIL 20 MG TABS 653177 LISINOPRIL Inactive SAPHRIS 10 MG SUBL 1 [...] twice a day CEFDINIR 300 MG CAPS 159635 CEFDINIR Inactive PREDNISONE 20 MG TAB 2 tabs daily for 3 days, 1 tab daily for 3 days, 1/2 tab daily for 2 days PREDNISONE 20 MG TAB 564658 PREDNISONE Inactive BACTRIM DS 800-160 MG TABS [...] U/L Chart Maintenance: outside labs entered on [employer] - Hematology leukocyte count, blood 8.9 10*3/mm3 hemoglobin, blood 13.2 g/dL platelet count 364 10*3/mm3 Lab Report: Comp. Metabolic Panel - Chemistry sodium, serum 141 mmol/L [phone] potassium, serum 4.3 mmol/L 3.5-5.2 chloride, serum [...] Panel - Chemistry sodium, serum 139 mmol/L 201-729 2593/12/31 potassium, serum 4.8 mmol/L 3.5-5.2 chloride, serum 106 mmol/L 98-107 carbon dioxide, venous blood 24.3 mmol/L 21.0-32.0 blood glucose 90 mg/dL 65-110 urea nitrogen, blood 16 mg/dL 7-18 creatinine, serum 1.00 mg/dL 0.60-1.30 alanine aminotransferase (SGPT), serum 41 U/L aspartate aminotransferase (SGOT), serum 17 U/L 15-37 calcium, serum 8.6 mg/dL 8.5-10.1 bilirubin, serum, total 0.30 mg/dL 0.00-1.00 cholesterol, serum 108 mg/dL 212-126 0379/12/31 triglyceride, serum, fasting 120 mg/dL 30-200 HDL [...] Negative Negative Lab Report: UADIP W/MICRO, AUTO, UHG - Chemistry protein, total urine random Negative [...] 1.025 1.000-1.030 pH, urine, semiquantitative 7.0 5.0-8.5 Encounters Code Encounter Date Provider Facility CPT-[id number] Level 3 Est. Patient 14:49:50 CDT Vishal Hui MD [facility] CPT-23877 Level 4 Est. Patient 18:41:46 CDT Neeraj Collins MD [facility] CPT-20332 Level 4 Est. Patient 09:18:38 DIP LUBE OPERATOR Vishal Hui MD [facility] CPT-51747 Level 3 Est. Patient 14:43:55 DIP LUBE OPERATOR Vishal Hui MD [facility] CPT-72408 Level 3 Est. Patient 15:26:33 DIP LUBE OPERATOR Sahara Rodriguez MD PhD [facility] CPT-70561 Level 3 Est. Patient 10:32:14 DIP LUBE OPERATOR Vishal Hui MD [facility] CPT-25930 Level 3 Est. Patient 15:12:52 DIP LUBE OPERATOR Vishal Hui MD [facility] CPT-85078 Level 4 Est. Patient 09:19:27 CDT Vishal Hui MD [facility] CPT-30731 Level 3 Est. Patient 15:53:00 CDT Renzo Thornton [facility] CPT-17624 Level 3 Est. Patient 15:50:30 CDT Renzo Thornton [facility] CPT-90351 Level 3 Est. Patient 16:55:24 CDT Vishal Hui MD [facility] Procedures Code Procedure Name Date Entry Date Standard Description CPT-83385 Sono transvag pelvis non OB uterus ovaries cervix 16:36: 57 CDT CPT-88618 LS spine comp w obliq 09:50:55 DIP LUBE OPERATOR CPT-34062 Abd compl w upright 09:50:55 DIP LUBE OPERATOR CPT-J1100 Decadron 4mg (Dexamethasone) 15:51:24 DIP LUBE OPERATOR CPT-J1030 Depo Medrol 40 mg (Methyl Prednisolone Acetate) 15:51: 24 DIP LUBE OPERATOR CPT-87971 Abx/Therapy Injection 15:51:24 DIP LUBE OPERATOR CPT-J1100 Decadron 4mg (Dexamethasone) 15:26:33 DIP LUBE OPERATOR CPT-J1030 Depo Medrol 40 mg (Methyl Prednisolone Acetate) 15:26: 33 DIP LUBE OPERATOR CPT-80036 Sono retroperitoneal complete kidneys and bladder 17:15: 30 CDT CPT-14527 Abd compl w upright 16:09:25 CDT CPT-J1100 Decadron 8mg (Dexamethasone) 17:07:57 CDT CPT-62918 Abx/Therapy Injection 17:07:57 CDT CPT-J1100 Decadron 8mg (Dexamethasone) 16:55:24 CDT CPT-33655 Chest 2V Frontal and Lat 16:32:44 CDT
--- OUTSIDE RECORDS SUMMARY | 2016-11-04 12:50 | XMS REPORT | Clinical Summary ---
Author Author Admin, [place] Organization [facility] Address Unknown Phone Unavailable Allergies, Adverse [...] Shortness of breath 786.05 Active Fabiola Johnson [employer] Shortness of breath Nocturnal hypoxia 799.02 Active Fabiola Johnson [employer] Hypoxemia Neck pain 723.1 Active Luigi Martínez [employer] Cervicalgia Vaginal discharge 623.5 Active Neeraj Collins [...] SUSR 400mg injection every 28 days ARIPIPRAZOLE 00703768606 Active Silvia Wilian Casey LPN Active FLAGYL 500 MG TAB 1 tablet by mouth bid METRONIDAZOLE 64523416875 Active Olimpia Raida Active FLUTICASONE PROPIONATE 50 MCG/ACT SUSP 2 sprays each nostril daily before bed. FLUTICASONE PROPIONATE 75353860394 Active Fabiola Johnson APRN Active VERAPAMIL HCL ER 120 MG ORAL CR-TABS 1 tab po daily for blood pressure 09/27 VERAPAMIL HCL 99806638422 Active Fabiola Johnson APRN Active ADZENYS XR-ODT 6.3 MG ORAL TBED 1 tab po daily for ADHD AMPHETAMINE 44215470287 Active Fabiola Johnson APRN Active BENADRYL 25 MG CAP 4 po at bedtime for insomnia DIPHENHYDRAMINE HCL 80354523381 Active Fabiola Johnson APRN Active KLONOPIN 1 MG ORAL TABS 1 tab po TID CLONAZEPAM 14436317157 Active Fabiola Johnson APRN Active VALIUM 5 MG TAB Take 1-2 tablets daily DIAZEPAM 03808677192 No Longer Active Fabiola Johnson APRN Active METOPROLOL TARTRATE 25 MG ORAL TABS 1/2 tablet twice daily for heart rate and blood pressure METOPROLOL TARTRATE 36900979736 No Longer Active Fabiola Johnson APRN Active MIRALAX ORAL POWD 17GMS DAILY IN WATER POLYETHYLENE GLYCOL 3350 22690295394 Active Vishal Hui MD Active VIIBRYD 10 MG ORAL TABS Take 1 tablet once a day VILAZODONE HCL 84837048068 Active Ahmet Carbajal MD Active DICLOFENAC POTASSIUM TABS Take 1 tablet twice a day (pt. is not sure of the dose.) DICLOFENAC POTASSIUM TABS 99504005352 Active Ahmet Carbajal MD Active MIRALAX PACK 1 po qd PRN Constipation POLYETHYLENE GLYCOL 3350 28626906757 No Longer Active Ahmet Carbajal MD Active MINIPRESS 2 MG CAPS 4 cap po at night PRAZOSIN HCL 65435357140 No Longer Active Ahmet Carbajal MD Active PIROXICAM 20 MG CAPS 1 cap po qd PRN Pain PIROXICAM 00465722273 No Longer Active Ahmet Carbajal MD Active TRAMADOL HCL 50 MG TABS 1-2 po TID PRN Pain TRAMADOL HCL 60732535618 No Longer Active Ahmet Carbajal MD Active METOPROLOL TARTRATE 50 MG TAB 1 po bid METOPROLOL TARTRATE 22116650756 No Longer Active Ahmet Carbajal MD Active ABILIFY 15 MG ORAL TABS 1 tab daily ARIPIPRAZOLE 84886386393 No Longer Active Ahmet Carbajal MD Active PROZAC 20 MG ORAL CAPS 1 tab daily FLUOXETINE HCL 33115388254 No Longer Active Ahmet Carbajal MD Active AMBIEN 5 MG ORAL TABS 1 tab at bedtime ZOLPIDEM TARTRATE 29198831279 No Longer Active Ahmet Carbajal MD Active PREDNISONE 20 MG TAB 2 tabs daily for 4 days, 1 tab daily for 4 days, 1/2 tab daily for 4 days PREDNISONE 63604244312 No Longer Active Ahmet Carbajal MD Active KEFLEX 500 MG CAP 1 po TID x 10 days CEPHALEXIN 59385229766 No Longer Active Vishal Hui MD Active IMITREX 50 MG ORAL TABS 1/2 tab every 6 hours prn SUMATRIPTAN SUCCINATE 87297173014 Active Luigi Martínez [employer] Active TOPAMAX 50 MG ORAL TABS 1 tab twice daily TOPIRAMATE 47737479812 Active Vishal Hui MD Active SAPHRIS 5 MG SUBL 1 po bid ASENAPINE MALEATE 55553137954 No Longer Active Luigi Martínez [employer] Active LATUDA 80 MG TABS Take one by mouth daily LURASIDONE HCL 65970240969 No Longer Active Luigi Martínez APRN Active AMLODIPINE BESYLATE 5 MG TABS 1 tablet by mouth daily AMLODIPINE BESYLATE 19457564382 No Longer Active Luigi Martínez APRN Active AMITRIPTYLINE HCL 100 MG TAB one at hs AMITRIPTYLINE HCL 77245456053 No Longer Active Vishal Hui MD Active TRAZODONE HCL 100 MG TAB take 1 at bedtime TRAZODONE HCL 81306191500 No Longer Active Vishal Hui MD Active VYVANSE 40 MG CAPS 1 daily, LISDEXAMFETAMINE DIMESYLATE 32749981206 No Longer Active Vishal Hui MD Active IBUPROFEN 600 MG TAB 1 po TID PRN IBUPROFEN 49127589372 No Longer Active Vishal Hui MD Active PROZAC 20 MG CAP Take one by mouth daily FLUOXETINE HCL 42539250221 No Longer Active Vishal Hui MD Active ZOFRAN 4 MG TABS 1 po q6hr PRN Nausea ONDANSETRON HCL Active Vishal Hui MD Active BACTRIM DS 800-160 MG TABS 1 pill by mouth twice daily SULFAMETHOXAZOLE-TRIMETHOPRIM 25638876739 No Longer Active Sahara Rodriguez MD PhD Active DIFLUCAN 150 MG TAB 1 tablet by mouth daily FLUCONAZOLE 80356069819 No Longer Active Vishal Hui MD Active TIZANIDINE HCL 4 MG TABS 1 po q6hr PRN Muscle Spasm/Back Pain TIZANIDINE HCL 55872595511 Active Vishal Hui MD Active CLINDAMYCIN HCL 150 MG CAPS 1 four times a day CLINDAMYCIN HCL 12404756890 No Longer Active Neeraj Collins MD Active KEFLEX 500 MG ORAL CAPS 1 cap QID by mouth CEPHALEXIN 60933940858 No Longer Active Neeraj Collins MD Active DIFLUCAN 150 MG TABS 1 pill every other day x 2 doses FLUCONAZOLE 62136856571 No Longer Active Sahara Rodriguez MD PhD Active MELATONIN 3 MG CAPS 2 po q hs MELATONIN 12277241576 No Longer Active Sahara Rodriguez MD PhD Active MULTIVITAMINS CAPS Take one by mouth daily MULTIPLE VITAMIN 34043498400 No Longer Active Sahara Rodriguez MD PhD Active BACTRIM DS 800-160 MG TAB 1 tab by mouth twice daily TRIMETHOPRIM-SULFAMETHOXAZOLE 39942962644 No Longer Active Sahara Rodriguez MD PhD Active [facility] PROBIOTIC ORAL CHEW 2 daily po PROBIOTIC PRODUCT 46642287409 No Longer Active Sahara Rodriguez MD PhD Active BACTRIM DS 800-160 MG TABS 1 po BID x 7 days SULFAMETHOXAZOLE-TRIMETHOPRIM 79484566960 No Longer Active Vishal Hui MD Active CHANTIX STARTING MONTH EARNEST 0.5 MG X 11 & 1 MG X 42 TABS 0.5mg daily for 3 days , then 0.5mg BID for 4 days, then 1mg BID VARENICLINE TARTRATE 42238639306 No Longer Active TAMARA Gray Active VERAPAMIL HCL CR 120 MG TAB CR 1 po bid VERAPAMIL HCL 29467790704 No Longer Active Vishal Hui MD Active METOPROLOL SUCCINATE 50 MG TB24 1 tablet by mouth daily METOPROLOL SUCCINATE 68662370343 No Longer Active Vishal Hui MD Active SAPHRIS 10 MG SUBL 1 tab po bid ASENAPINE MALEATE 03284804221 No Longer Active Vishal Hui MD Active LISINOPRIL 20 MG TABS 1 tab po qd LISINOPRIL 50044860413 No Longer Active Vishal Hui MD Active LATUDA 20 MG TABS Take one by mouth daily LURASIDONE HCL 15769980994 No Longer Active Vishal Hui MD Active TRAZODONE HCL 50 MG TABS 1/2 tab po qd prn for anxiety TRAZODONE HCL 42887483223 No Longer Active Vishal Hui MD Active OMEPRAZOLE 20 MG TBEC 1 po q a.m. 30min prior to first food intake OMEPRAZOLE 42903899569 Active Vishal Hui MD Active RANITIDINE HCL 150 MG CAPS 1 twice a day RANITIDINE HCL 17190666438 Active Jillina Frazell [employer] Active LINZESS 290 MCG CAPS Take one by mouth daily LINACLOTIDE 92732980284 No Longer Active Vishal Hui MD Active SAPHRIS 5 MG SUBL 1 tab po qd ASENAPINE MALEATE 92958303811 No Longer Active Vishal Hui MD Active ZALEPLON 10 MG CAPS 1 cap po every other night ZALEPLON 32666560492 No Longer Active Vishal Hui MD Active LYRICA 50 MG CAPS 1 tab po TID PREGABALIN 05726171513 No Longer Active Vishal Hui MD Active LORATADINE 10 MG TABS 1 tab po qd LORATADINE 24395483549 No Longer Active Vishal Hui MD Active VERAPAMIL HCL ER 180 MG CR-TABS 1 tab po bid VERAPAMIL HCL 84769129032 No Longer Active Vishal Hui MD Active MIRALAX POWD 1 capfull once daily POLYETHYLENE GLYCOL 3350 26723238042 No Longer Active Vishal Hui MD Active PREDNISONE 20 MG TABS 1 tab po qd PREDNISONE 53342906154 No Longer Active Renzo Thornton DO Active LEVOFLOXACIN 500 MG TABS 1 tab po qd LEVOFLOXACIN 83477179327 No Longer Active Renzo Thornton DO Active BUSPIRONE HCL 15 MG TABS 1 tab po TID BUSPIRONE HCL 50615838284 No Longer Active Renzo Thornton DO Active BENZTROPINE MESYLATE 1 MG TABS 1 tab po qd BENZTROPINE MESYLATE 18399196303 No Longer Active Renzo Thornton DO Active ATENOLOL 25 MG TABS 1 tab po qd ATENOLOL 42440662408 No Longer Active Renzo Thornton DO Active ESCITALOPRAM OXALATE 20 MG TABS 1 tab po qd ESCITALOPRAM OXALATE 59671479666 No Longer Active Renzo Thornton DO Active ADVAIR DISKUS 250-50 MCG/DOSE AEPB 1 puff BID FLUTICASONE-SALMETEROL 91808276526 No Longer Active Renzo Thornton DO Active PREDNISONE 20 MG TAB 2 tabs daily for 3 days, 1 tab daily for 3 days, 1/2 tab daily for 2 days PREDNISONE 34401336288 No Longer Active Vishal Hui MD Active CEFDINIR 300 MG CAPS by mouth twice a day CEFDINIR 08976227820 No Longer Active Vishal Hui MD Active LANSOPRAZOLE 30 MG CPDR 1 cap po qd LANSOPRAZOLE 84348790218 No Longer Active Vishal Hui MD Active BACLOFEN 20 MG TABS 1 tab po tid BACLOFEN 70564263010 No Longer Active Vishal Hui MD Active ADVAIR DISKUS 250-50 MCG/DOSE AEPB 1 puff BID ADVAIR DISKUS 250-50 MCG/DOSE AEPB FLUTICASONE-SALMETEROL Inactive ESCITALOPRAM OXALATE 20 MG TABS 1 tab po qd ESCITALOPRAM OXALATE 20 MG TABS 521339 ESCITALOPRAM OXALATE Inactive ATENOLOL 25 MG TABS 1 tab po qd ATENOLOL 25 MG TABS 575220 ATENOLOL Inactive BENZTROPINE MESYLATE 1 MG TABS 1 tab po qd BENZTROPINE MESYLATE 1 MG TABS 805035 BENZTROPINE MESYLATE Inactive BUSPIRONE HCL 15 MG TABS 1 tab po TID BUSPIRONE HCL 15 MG TABS 852872 BUSPIRONE HCL Inactive LEVOFLOXACIN 500 MG TABS 1 tab po qd LEVOFLOXACIN 500 MG TABS 581506 LEVOFLOXACIN Inactive PREDNISONE 20 MG TABS 1 tab po qd PREDNISONE 20 MG TABS 432882 PREDNISONE Inactive MIRALAX POWD 1 capfull once daily MIRALAX POWD 187422 POLYETHYLENE GLYCOL 3350 Inactive VERAPAMIL HCL ER 180 MG CR-TABS 1 tab po bid VERAPAMIL HCL ER 180 MG CR-TABS VERAPAMIL HCL Inactive LORATADINE 10 MG TABS 1 tab po qd LORATADINE 10 MG TABS 518355 LORATADINE Inactive LYRICA 50 MG CAPS 1 tab po TID LYRICA 50 MG CAPS PREGABALIN Inactive ZALEPLON 10 MG CAPS 1 cap po every other night ZALEPLON 10 MG CAPS 259582 ZALEPLON Inactive SAPHRIS 5 MG SUBL 1 tab po qd SAPHRIS 5 MG SUBL ASENAPINE MALEATE Inactive TRAZODONE HCL 50 MG TABS 1/2 tab po qd prn for anxiety TRAZODONE HCL 50 MG TABS 914135 TRAZODONE HCL Inactive LATUDA 20 MG TABS Take one by mouth daily LATUDA 20 MG TABS LURASIDONE HCL Inactive LISINOPRIL 20 MG TABS 1 tab po qd LISINOPRIL 20 MG TABS 229681 LISINOPRIL Inactive SAPHRIS 10 MG SUBL 1 [...] twice daily BACTRIM DS 800-160 MG TAB 134836 TRIMETHOPRIM-SULFAMETHOXAZOLE Inactive MULTIVITAMINS CAPS Take one by mouth daily MULTIVITAMINS CAPS MULTIPLE VITAMIN Inactive MELATONIN 3 MG CAPS 2 po q hs MELATONIN 3 MG CAPS 539847 MELATONIN Inactive KEFLEX 500 MG ORAL CAPS 1 cap QID by mouth KEFLEX 500 MG ORAL CAPS 841655 CEPHALEXIN Inactive CLINDAMYCIN HCL 150 MG CAPS 1 four times a day CLINDAMYCIN HCL 150 MG CAPS 763496 CLINDAMYCIN HCL Inactive DIFLUCAN 150 MG TAB 1 tablet by mouth daily DIFLUCAN 150 MG TAB 631548 FLUCONAZOLE Inactive PROZAC 20 MG CAP Take one by mouth daily PROZAC 20 MG CAP 807488 FLUOXETINE HCL Inactive IBUPROFEN 600 MG TAB 1 po TID PRN IBUPROFEN 600 MG TAB 283412 IBUPROFEN Inactive VYVANSE 40 MG CAPS 1 daily, VYVANSE 40 MG CAPS LISDEXAMFETAMINE DIMESYLATE Inactive TRAZODONE HCL 100 MG TAB take 1 at bedtime TRAZODONE HCL 100 MG TAB 342004 TRAZODONE HCL Inactive AMITRIPTYLINE HCL 100 MG TAB one at hs AMITRIPTYLINE HCL 100 MG TAB 094421 AMITRIPTYLINE HCL Inactive AMLODIPINE BESYLATE 5 MG TABS 1 tablet by mouth daily AMLODIPINE BESYLATE 5 MG TABS 461265 AMLODIPINE BESYLATE Inactive LATUDA 80 MG TABS Take one by mouth daily LATUDA 80 MG TABS LURASIDONE HCL Inactive SAPHRIS 5 MG SUBL 1 po bid SAPHRIS 5 MG SUBL ASENAPINE MALEATE Inactive PREDNISONE 20 MG TAB 2 tabs daily for 4 days, 1 tab daily for 4 days, 1/2 tab daily for 4 days PREDNISONE 20 MG TAB 367460 PREDNISONE Inactive AMBIEN 5 MG ORAL TABS 1 tab at bedtime AMBIEN 5 MG ORAL TABS 338344 ZOLPIDEM TARTRATE Inactive PROZAC 20 MG ORAL CAPS 1 tab daily PROZAC 20 MG ORAL CAPS 050751 FLUOXETINE HCL Inactive ABILIFY 15 MG ORAL TABS 1 tab daily ABILIFY 15 MG ORAL TABS 750084 ARIPIPRAZOLE Inactive METOPROLOL TARTRATE 50 MG TAB 1 po bid METOPROLOL TARTRATE 50 MG TAB 377536 METOPROLOL TARTRATE Inactive TRAMADOL HCL 50 MG TABS 1-2 po TID PRN Pain TRAMADOL HCL 50 MG TABS 159751 TRAMADOL HCL Inactive PIROXICAM 20 MG CAPS 1 cap po qd PRN Pain PIROXICAM 20 MG CAPS 891148 PIROXICAM Inactive MINIPRESS 2 MG CAPS 4 cap po at night MINIPRESS 2 MG CAPS 842735 PRAZOSIN HCL Inactive MIRALAX PACK 1 po qd PRN Constipation MIRALAX PACK 885697 POLYETHYLENE GLYCOL 3350 Inactive METOPROLOL TARTRATE 25 MG ORAL TABS 1/2 tablet twice daily for heart rate and blood pressure METOPROLOL TARTRATE 25 MG ORAL TABS 102107 METOPROLOL TARTRATE Inactive VALIUM 5 MG TAB Take 1-2 tablets daily VALIUM 5 MG TAB 027798 DIAZEPAM Inactive CEFDINIR 300 MG CAPS by mouth twice a day CEFDINIR 300 MG CAPS 100446 CEFDINIR Inactive PREDNISONE 20 MG TAB 2 tabs daily for 3 days, 1 tab daily for 3 days, 1/2 tab daily for 2 days PREDNISONE 20 MG TAB 826563 PREDNISONE Inactive BACTRIM DS 800-160 MG TABS 1 po BID x 7 days BACTRIM DS 800-160 MG TABS 19820521 SULFAMETHOXAZOLE-TRIMETHOPRIM Inactive DIFLUCAN 150 MG TABS 1 pill every other day x 2 doses DIFLUCAN 150 MG TABS 394090 FLUCONAZOLE Inactive BACTRIM DS 800-160 MG TABS 1 pill by mouth twice daily BACTRIM DS 800-160 MG TABS 19820521 SULFAMETHOXAZOLE-TRIMETHOPRIM Inactive KEFLEX 500 MG CAP 1 po TID x 10 days KEFLEX 500 MG CAP 593878 CEPHALEXIN Inactive Advance Directives Directive Description Start [...] % 11.6-14.8 platelet count 394 10^3/MM^3 10*3/mm3 406-764 8431/01/11 leukocyte count, blood 13.8 10^3/MM^3 10*3/mm3 4.6-10.2 [...] Panel - Chemistry sodium, serum 139 mmol/L 450-974 7492/12/03 carbon dioxide, venous blood 28.5 mmol/L 21.0-32.0 [...] 5.5 % 4.3-6.0 cholesterol, serum 159 mg/dL 975-593 1709/12/03 triglyceride, serum, fasting 118 mg/dL 30-200 HDL [...] Panel - Chemistry sodium, serum 139 mmol/L 223-842 6334/12/22 carbon dioxide, venous blood 26.8 mmol/L 21.0-32.0 potassium, serum 4.2 mmol/L 3.5-5.2 chloride, serum 103 mmol/L 98-107 blood glucose 115 mg/dL 65-110 urea nitrogen, blood 20 mg/dL 7-18 creatinine, serum 0.90 mg/dL 0.55-1.30 alanine aminotransferase (SGPT), serum 38 U/L aspartate aminotransferase (SGOT), serum 19 U/L 15-37 calcium, serum 8.6 mg/dL 8.5-10.1 bilirubin, serum, total 0.30 mg/dL 0.00-1.00 sodium, serum 139 mmol/L 390-356 2694/01/11 carbon dioxide, venous blood 26.6 mmol/L 21.0-32.0 potassium, serum 4.1 mmol/L 3.5-5.2 chloride, serum 100 mmol/L 98-107 blood glucose 86 mg/dL 65-110 urea nitrogen, blood 16 mg/dL 7-18 creatinine, serum 1.00 mg/dL 0.55-1.30 alanine aminotransferase (SGPT), serum 48 U/L -78 aspartate aminotransferase (SGOT), serum 17 U/L 15-37 calcium, serum 9.1 mg/dL 8.5-10.1 bilirubin, serum, total 0.40 mg/dL 0.00-1.00 sodium, serum 142 mmol/L 537-831 2168/06/08 carbon dioxide, venous blood 27.6 mmol/L 21.0-32.0 potassium, serum 4.0 mmol/L 3.5-5.2 chloride, serum 105 mmol/L 98-107 blood glucose 95 mg/dL 65-110 urea nitrogen, blood 8 mg/dL 7-18 creatinine, serum 0.75 mg/dL 0.55-1.30 alanine aminotransferase (SGPT), serum 49 U/L -78 aspartate aminotransferase (SGOT), serum 28 U/L 15-37 calcium, serum 9.4 mg/dL 8.5-10.1 bilirubin, serum, total 0.30 mg/dL 0.00-1.00 sodium, serum 140 mmol/L 473-782 8084/08/08 carbon dioxide, venous blood 33.7 mmol/L 21.0-32.0 [...] Rate - Chemistry sodium, serum 139 mmol/L 293-024 1296/12/11 carbon dioxide, venous blood 25.4 mmol/L 21.0-32.0 [...] mg/dL Encounters Code Encounter Date Provider Facility CPT-58270 Level 3 Est. Patient 14:27:52 CDT Neeraj Collins MD [facility] CPT-52461 Level 3 Est. Patient 08:56:03 CDT Luigi Martínez [facility] CPT-76851 Level 4 Est. Patient 12:11:48 CDT Fabiola Johnson [facility] CPT-49270 Level 3 New Patient 16:53:37 CDT Albert Caldera MD [facility] CPT-86679 Level 3 Est. Patient 11:25:49 CDT Renzo Thornton DO [facility] CPT-40468 Level 3 Est. Patient 15:22:01 CDT Ahmet Carbajal MD [facility] CPT-60649 Level 4 Est. Patient 09:00:51 [employer] Vishal Hui MD [facility] CPT-07979 Level 3 Est. Patient 11:37:33 [employer] Vishal Hui MD [facility] CPT-36698 Level 3 Est. Patient 08:41:09 [employer] Vishal Hui MD [facility] CPT-80589 Level 4 Est. Patient 10:19:35 [employer] Vishal Hui MD [facility] CPT-99877 Level 3 Est. Patient 13:35:45 CDT Vishal Hui MD [facility] CPT-20472 Level 4 Est. Patient 10:08:37 CDT Vishal Hui MD [facility] CPT-62233 Level 3 Est. Patient 11:22:10 CDT Vishal Hui MD [facility] CPT-17168 Level 3 Est. Patient 11:03:32 CDT Sahara Rodriguez MD PhD [facility] CPT-31196 Level 3 Est. Patient 09:41:35 CDT Vishal Hui MD [facility] CPT-29634 Level 3 Est. Patient 12:00:41 CDT Neeraj Collins MD [facility] CPT-05941 Level 3 Est. Patient 09:16:24 CDT Vishal Hui MD [facility] CPT-61048 Level 4 Est. Patient 13:59:09 CDT Neeraj Collins MD [facility] CPT-68345 Level 3 Est. Patient 15:19:43 CDT Renzo Thornton DO [facility] CPT-36388 Level 3 Est. Patient 18:10:26 CDT Sahara Rodriguez MD [facility]-00538 Level 3 Est. Patient 14:49:50 CDT Vishal Hui MD [facility] CPT-12936 Level 4 Est. Patient 18:41:46 CDT Neeraj Collins MD [facility] CPT-41338 Level 4 Est. Patient 09:18:38 [employer] Vishal Hui MD [facility] CPT-91125 Level 3 Est. Patient 14:43:55 [employer] Vishal Hui MD [facility] CPT-49230 Level 3 Est. Patient 15:26:33 [employer] Sahaar Rodriguez MD PhD [facility] CPT-85310 Level 3 Est. Patient 10:32:14 [employer] Vishal Hui MD [facility] CPT-36597 Level 3 Est. Patient 15:12:52 [employer] Vishal Hui MD [facility] CPT-44227 Level 4 Est. Patient 09:19:27 CDT Vishal Hui MD [facility] CPT-01592 Level 3 Est. Patient 15:53:00 CDT Renzo Thornton [facility] CPT-02616 Level 3 Est. Patient 15:50:30 CDT Renzo Thornton [facility] CPT-78722 Level 3 Est. Patient 16:55:24 CDT Vishal Hui MD [facility] Procedures Code Procedure Name Date Entry Date Standard Description CPT-73751 Abx/Therapy Injection 13:29:56 CDT CPT-95295 Abx/Therapy Injection 08:36:16 CDT CPT-61680 Wet Mount - LAB USE ONLY 17:44:58 CDT CPT-85762 UA w micro - LAB USE ONLY 17:44:58 CDT CPT-37571 CMP - LAB USE ONLY 17:44:58 CDT CPT-77141 Venipuncture Draw Fee 17:44:58 CDT CPT-07003 Cervical Min 4V - XRAY USE ONLY 09:01:40 CDT CPT-85467 Chest 2V Frontal and Lat - XRAY USE ONLY 11:06:31 CDT CPT-53584 EKG Trac and Interp - XRAY USE ONLY 11:31:43 CDT 08/26 CPT-J3420 Vitamin B12 1000mcg (Cyanocobalamin) 08:10:26 [employer] 04/12 CPT-78017 Abx/Therapy Injection 08:10:26 [employer] CPT-G0438 Initial Annual Wellness Exam 19:01:01 [employer] CPT-J3420 Vitamin B12 1000mcg (Cyanocobalamin) 16:57:46 CDT 08/14 CPT-41241 Recombivax HB Injection Suspension 5 MCG/0.5ML 08:37:50 [employer] CPT-44090 Immunization Single Admin 08:37:50 [employer] CPT-J3420 Vitamin B12 1000mcg (Cyanocobalamin) 08:32:16 [employer] 03/11 CPT-24947 Abx/Therapy Injection 08:32:16 [employer] CPT-93646 Chest 2V Frontal and Lat 11:46:38 [employer] CPT-84142 Venipuncture Draw Fee 09:12:45 [employer] CPT-J3420 Vitamin B12 1000mcg (Cyanocobalamin) 08:50:15 [employer] 02/08 CPT-66269 Abx/Therapy Injection 08:50:15 [employer] CPT-Cryo Cryotherapy 10:19:35 [employer] CPT-000 Give Appropriate Flu Vaccine 09:22:16 CDT CPT-J3420 Vitamin B12 1000mcg (Cyanocobalamin) 19:08:57 CDT 01/11 CPT-80078 Abx/Therapy Injection 19:08:57 CDT CPT-J3420 Vitamin B12 1000mcg (Cyanocobalamin) 08:19:08 CDT 12/11 CPT-93282 Abx/Therapy Injection 08:19:08 CDT CPT-J3420 Vitamin B12 1000mcg (Cyanocobalamin) 14:48:00 CDT 11/09 CPT-49971 Abx/Therapy Injection 14:47:59 CDT CPT-J3420 Vitamin B12 1000mcg (Cyanocobalamin) 08:34:04 CDT 10/09 CPT-21769 Abx/Therapy Injection 08:34:04 CDT CPT-J3420 Vitamin B12 1000mcg (Cyanocobalamin) 09:18:52 CDT 09/11 CPT-73825 Abx/Therapy Injection 09:18:52 CDT CPT-J3420 Vitamin B12 1000mcg (Cyanocobalamin) 08:35:44 CDT 09/04 CPT-54782 Abx/Therapy Injection 08:35:44 CDT CPT-46194 Immunization Single Admin 11:07:16 CDT CPT-37462 Hepatitis B adult IM 11:07:16 CDT CPT-J3420 Vitamin B12 1000mcg (Cyanocobalamin) 11:00:49 CDT 08/28 CPT-J1040 Depo Medrol 80 mg (Methyl Prednisolone Acetate) 11:00: 49 CDT CPT-19867 Abx/Therapy Injection 11:00:49 CDT CPT-J1040 Depo Medrol 80 mg (Methyl Prednisolone Acetate) 09:16: 23 CDT CPT-J3420 Vitamin B12 1000mcg (Cyanocobalamin) 08:27:05 CDT 08/20 CPT-96341 Abx/Therapy Injection 08:27:05 CDT CPT-29181 Recombivax HB Injection Suspension 5 MCG/0.5ML 10:00:41 CDT CPT-93578 Administration single or combination vaccine inc oral 10 :00:41 CDT CPT-13009 Sono transvag pelvis non OB uterus ovaries cervix 16:36: 57 CDT CPT-50381 LS spine comp w obliq 09:50:55 [employer] CPT-32457 Abd compl w upright 09:50:55 [employer] CPT-J1100 Decadron 4mg (Dexamethasone) 15:51:24 [employer] CPT-J1030 Depo Medrol 40 mg (Methyl Prednisolone Acetate) 15:51: 24 [employer] CPT-20392 Abx/Therapy Injection 15:51:24 [employer] CPT-J1100 Decadron 4mg (Dexamethasone) 15:26:33 [employer] CPT-J1030 Depo Medrol 40 mg (Methyl Prednisolone Acetate) 15:26: 33 [employer] CPT-48954 Sono retroperitoneal complete kidneys and bladder 17:15: 30 CDT CPT-91743 Abd compl w upright 16:09:25 CDT CPT-J1100 Decadron 8mg (Dexamethasone) 17:07:57 CDT CPT-78375 Abx/Therapy Injection 17:07:57 CDT CPT-J1100 Decadron 8mg (Dexamethasone) 16:55:24 CDT CPT-08261 Chest 2V Frontal and Lat 16:32:44 CDT
--- OUTSIDE RECORDS SUMMARY | 2016-11-04 12:52 | XMS REPORT | Clinical Summary ---
Author Author Admin, FLOR Organization [employer] Address Unknown Phone Unavailable Allergies, Adverse Reactions, [...] sites Morbid obesity 278.01 Active Juliet Kimbrough COMMUNITY ASSOCIATE Morbid obesity 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 Active Juliet [...] breath Nocturnal hypoxia 799.02 Active Fabiola Johnson COMMUNITY ASSOCIATE Hypoxemia Neck pain 723.1 Resolved Vishal [...] fibula Vaginal discharge 623.5 Active Luigi Martínez COMMUNITY ASSOCIATE Leukorrhea, not specified as infective DYSURIA 788.1 [...] as needed for pseudoseizures or anxiety CLONAZEPAM 03787319915 Active Ahmet Carbajal MD Active HYDROCODONE-ACETAMINOPHEN 5-325 MG ORAL TABS 1 tab two times a day HYDROCODONE-ACETAMINOPHEN 06093658645 No Longer Active Ahmet Carbajal MD Active LAMICTAL 100 MG ORAL TABS 1 tab 2 times qd. LAMOTRIGINE 37303794885 Active Ahmet Carbajal MD Active PREDNISONE 20 MG TABS 2 daily for 5 days then 1 daily for 5 days PREDNISONE 48546334118 No Longer Active Ahmet Carbajal MD Active FLUTICASONE PROPIONATE 50 MCG/ACT SUSP 1 to 2 sprays each nostril daily for allergies FLUTICASONE PROPIONATE 45029666223 Active Tila Valenzuela Active GUAIFENESIN-CODEINE 100-10 MG/5ML SYRP 5ml every 4 to 6 hours as needed for cough GUAIFENESIN-CODEINE 84136865406 Active Ahmet Carbajal MD Active BENADRYL 25 MG CAP 4 po at bedtime for insomnia DIPHENHYDRAMINE HCL 17333210205 No Longer Active Ahmet Carbajal MD Active ADVAIR DISKUS 250-50 MCG/DOSE INH AEPB 1 puff twice a day for asthma FLUTICASONE-SALMETEROL 89473360194 No Longer Active Ahmet Carbajal MD Active KLONOPIN 1 MG ORAL TABS 1 tab po TID CLONAZEPAM 29844395715 No Longer Active Ahmet Carbajal MD Active ABILIFY MAINTENA 400 MG IM SUSR 400mg injection every 26 days ARIPIPRAZOLE 43899392090 No Longer Active Ahmet Carbajal MD Active HALOPERIDOL 10 MG ORAL TABS 1 tab q.d HALOPERIDOL 22980973825 Active Ahmet Carbajal MD Active ASPIRIN 325 MG ORAL TABS 1 tab q.d ASPIRIN 48547780458 Active Ahmet Carbajal MD Active TRAMADOL HCL 50 MG TABS 1/2-1 tab TID PRN TRAMADOL HCL 37825009703 No Longer Active Ahmet Carbajal MD Active BACTRIM DS 800-160 MG TABS 1 twice a day SULFAMETHOXAZOLE- TRIMETHOPRIM 26811135982 No Longer Active Ahmet Carbajal MD Active PROAIR HFA 108 (90 BASE) MCG/ACT AERS 2 puffs four times a day as needed 2015 ALBUTEROL SULFATE 29343345258 Active Ahmet Carbajal MD Active EQ NICOTINE 21 MG/24HR TRANS PT24 Apply daily to stop smoking NICOTINE 23847551000 Active Ahmet Carbajal MD Active MONISTAT 7 COMBO PACK WOODROW 100 & 2 MG-% (9GM) VAG KIT 1 applicatorful per vagina q pm x 7 MICONAZOLE NITRATE 21827660060 No Longer Active Ahmet Carbajal MD Active FLAGYL 500 MG TAB 1 tablet by mouth bid METRONIDAZOLE 82011764057 No Longer Active Ahmet Carbajal MD Active OXYCODONE HCL ER 10 MG ORAL T12A 1/2 tab by mouth every 4 hours prn OXYCODONE HCL 06383203116 No Longer Active Ahmet Carbajal MD Active METHYLPREDNISOLONE 4 MG ORAL TABS po daily METHYLPREDNISOLONE 77477880486 No Longer Active Ahmet Carbajal MD Active LEVOFLOXACIN 500 MG ORAL TABS po daily LEVOFLOXACIN 06412539220 No Longer Active Ahmet Carbajal MD Active VIIBRYD 10 MG ORAL TABS Take 1 tablet once a day VILAZODONE HCL 66050393458 No Longer Active Ahmet Carbajal MD Active TOPAMAX 50 MG ORAL TABS 1 tab twice daily TOPIRAMATE 98263442882 No Longer Active Ahmet Carbajal MD Active DICLOFENAC SODIUM 50 MG TBEC 1 tablet by mouth four times daily PRN Pain 2015 DICLOFENAC SODIUM 49607224647 No Longer Active Ahmet Carbajal MD Active ADZENYS XR-ODT 6.3 MG ORAL TBED 1 tab po daily for ADHD AMPHETAMINE 73729184883 No Longer Active Ahmet Carbajal MD Active CHANTIX 1 MG TABS 1 twice a day to help quit smoking VARENICLINE TARTRATE 48924094410 No Longer Active Dipika Burgos MD Active CHANTIX STARTING MONTH EARNEST 0.5 MG X 11 & 1 MG X 42 TABS take as directed 2015 VARENICLINE TARTRATE 52456637018 No Longer Active Dipika Burgos MD Active TESSALON PERLES 100 MG CAP 1 to 2 tablets by mouth 3 times daily as needed for cough BENZONATATE 09662108602 No Longer Active Luigi Martínez APRN Active IMITREX 50 MG ORAL TABS 0.5 po x 1 PRN Headache. May repeat dose x 1 in 2 hours if needed SUMATRIPTAN SUCCINATE 60829717792 Active Ahmet Carbajal MD Active HYDROCODONE-ACETAMINOPHEN 5-325 MG TABS 1 to 2 four times a day as needed for pain use until can be seen by specialist HYDROCODONE- ACETAMINOPHEN 15189791374 No Longer Active Vishal Hui MD Active PROAIR HFA 108 (90 BASE) MCG/ACT AERS 2 puffs four times a day as needed 2015 ALBUTEROL SULFATE 41108886772 No Longer Active Vishal Hui MD Active PREDNISONE 20 MG TABS 2 daily for 5 days then 1 daily for 5 days PREDNISONE 41918585055 No Longer Active Vishal Hui MD Active ZITHROMAX Z-EARNEST 250 MG TABS 2 today and then 1 daily for 4 days AZITHROMYCIN 59064820274 No Longer Active Vishal Hui MD Active DICLOFENAC POTASSIUM TABS Take 1 tablet twice a day (pt. is not sure of the dose.) DICLOFENAC POTASSIUM TABS 40804078454 No Longer Active Vishal Hui MD Active VERAPAMIL HCL ER 120 MG ORAL CR-TABS Take 1 tablet by mouth twice a day. VERAPAMIL HCL 67757456296 Active Vishal Hui MD Active FLAGYL 500 MG TAB 1 tablet by mouth bid METRONIDAZOLE 07108736188 No Longer Active Vishal Hui MD Active FLUTICASONE PROPIONATE 50 MCG/ACT SUSP 2 sprays each nostril daily before bed. FLUTICASONE PROPIONATE 82055171530 Active Fabiola Johnson APRN Active VALIUM 5 MG TAB Take 1-2 tablets daily DIAZEPAM 65408214816 No Longer Active Fabiola Johnson APRN Active METOPROLOL TARTRATE 25 MG ORAL TABS 1/2 tablet twice daily for heart rate and blood pressure METOPROLOL TARTRATE 90264115114 No Longer Active Fabiola Johnson APRN Active MIRALAX ORAL POWD 17GMS DAILY IN WATER POLYETHYLENE GLYCOL 3350 95430007225 Active Vishal Hui MD Active MIRALAX PACK 1 po qd PRN Constipation POLYETHYLENE GLYCOL 3350 46863191384 No Longer Active Ahmet Carbajal MD Active MINIPRESS 2 MG CAPS 4 cap po at night PRAZOSIN HCL 77545955365 No Longer Active Ahmet Carbajal MD Active PIROXICAM 20 MG CAPS 1 cap po qd PRN Pain PIROXICAM 40234653484 No Longer Active Ahmet Carbajal MD Active TRAMADOL HCL 50 MG TABS 1-2 po TID PRN Pain TRAMADOL HCL 10645579464 No Longer Active Ahmet Carbajal MD Active METOPROLOL TARTRATE 50 MG TAB 1 po bid METOPROLOL TARTRATE 33808775063 No Longer Active Ahmet Carbajal MD Active ABILIFY 15 MG ORAL TABS 1 tab daily ARIPIPRAZOLE 88357676548 No Longer Active Ahmet Carbajal MD Active PROZAC 20 MG ORAL CAPS 1 tab daily FLUOXETINE HCL 24827629958 No Longer Active Ahmet Carbajal MD Active AMBIEN 5 MG ORAL TABS 1 tab at bedtime ZOLPIDEM TARTRATE 65685315967 No Longer Active Ahmet Carbajal MD Active PREDNISONE 20 MG TAB 2 tabs daily for 4 days, 1 tab daily for 4 days, 1/2 tab daily for 4 days PREDNISONE 29762176346 No Longer Active Ahmet Carbajal MD Active KEFLEX 500 MG CAP 1 po TID x 10 days CEPHALEXIN 52517784001 No Longer Active Vishal Hui MD Active SAPHRIS 5 MG SUBL 1 po bid ASENAPINE MALEATE 08641315710 No Longer Active Jillina Mauricio COMMUNITY ASSOCIATE Active LATUDA 80 MG TABS Take one by mouth daily LURASIDONE HCL 22848495994 No Longer Active Jillina Frazell COMMUNITY ASSOCIATE Active AMLODIPINE BESYLATE 5 MG TABS 1 tablet by mouth daily AMLODIPINE BESYLATE 47610019962 No Longer Active Jillina Fradwightl COMMUNITY ASSOCIATE Active AMITRIPTYLINE HCL 100 MG TAB one at hs AMITRIPTYLINE HCL 06142413039 No Longer Active Vishal Hiu MD Active TRAZODONE HCL 100 MG TAB take 1 at bedtime TRAZODONE HCL 63588215679 No Longer Active Vishal Hui MD Active VYVANSE 40 MG CAPS 1 daily, LISDEXAMFETAMINE DIMESYLATE 91540036350 No Longer Active Vishal Hui MD Active IBUPROFEN 600 MG TAB 1 po TID PRN IBUPROFEN 09680416865 No Longer Active Vishal Hui MD Active PROZAC 20 MG CAP Take one by mouth daily FLUOXETINE HCL 10870477871 No Longer Active Vishal Hui MD Active ZOFRAN 4 MG TABS 1 po q6hr PRN Nausea ONDANSETRON HCL Active Vishal Hui MD Active BACTRIM DS 800-160 MG TABS 1 pill by mouth twice daily SULFAMETHOXAZOLE-TRIMETHOPRIM 50053130705 No Longer Active Sahara Rodriguez MD PhD Active DIFLUCAN 150 MG TAB 1 tablet by mouth daily FLUCONAZOLE 79919887828 No Longer Active Vishal Hui MD Active TIZANIDINE HCL 4 MG TABS 1 po q6hr PRN Muscle Spasm/Back Pain TIZANIDINE HCL 90812263028 Active Vishal Hui MD Active CLINDAMYCIN HCL 150 MG CAPS 1 four times a day CLINDAMYCIN HCL 57334761828 No Longer Active Neeraj Collins MD Active KEFLEX 500 MG ORAL CAPS 1 cap QID by mouth CEPHALEXIN 22994084161 No Longer Active Neeraj Collins MD Active DIFLUCAN 150 MG TABS 1 pill every other day x 2 doses FLUCONAZOLE 69007788504 No Longer Active Sahara Rodriguez MD PhD Active MELATONIN 3 MG CAPS 2 po q hs MELATONIN 01995659431 No Longer Active Sahara Rodriguez MD PhD Active MULTIVITAMINS CAPS Take one by mouth daily MULTIPLE VITAMIN 94509473011 No Longer Active Sahara Rodriguez MD PhD Active BACTRIM DS 800-160 MG TAB 1 tab by mouth twice daily TRIMETHOPRIM-SULFAMETHOXAZOLE 75629336280 No Longer Active Sahara Rodriguez MD PhD Active [facility] PROBIOTIC ORAL CHEW 2 daily po PROBIOTIC PRODUCT 82375824601 No Longer Active Sahara Rodriguez MD PhD Active BACTRIM DS 800-160 MG TABS 1 po BID x 7 days SULFAMETHOXAZOLE-TRIMETHOPRIM 27961206891 No Longer Active Vishal Hui MD Active CHANTIX STARTING MONTH EARNEST 0.5 MG X 11 & 1 MG X 42 TABS 0.5mg daily for 3 days , then 0.5mg BID for 4 days, then 1mg BID VARENICLINE TARTRATE 71067347170 No Longer Active TAMARA Gray Active VERAPAMIL HCL CR 120 MG TAB CR 1 po bid VERAPAMIL HCL 35162231152 No Longer Active Vishal Hui MD Active METOPROLOL SUCCINATE 50 MG TB24 1 tablet by mouth daily METOPROLOL SUCCINATE 14831814139 No Longer Active Vishal Hui MD Active SAPHRIS 10 MG SUBL 1 tab po bid ASENAPINE MALEATE 02479152648 No Longer Active Vishal Hui MD Active LISINOPRIL 20 MG TABS 1 tab po qd LISINOPRIL 20940785002 No Longer Active Vishal Hui MD Active LATUDA 20 MG TABS Take one by mouth daily LURASIDONE HCL 89224375018 No Longer Active Vishal Hui MD Active TRAZODONE HCL 50 MG TABS 1/2 tab po qd prn for anxiety TRAZODONE HCL 84613672749 No Longer Active Vishal Hui MD Active OMEPRAZOLE 20 MG TBEC 1 po q a.m. 30min prior to first food intake OMEPRAZOLE 32660771390 Active Vishal Hui MD Active RANITIDINE HCL 150 MG CAPS 1 twice a day RANITIDINE HCL 68687891671 Active Luigi Martínez APRN Active LINZESS 290 MCG CAPS Take one by mouth daily LINACLOTIDE 64892651203 No Longer Active Vishal Hui MD Active SAPHRIS 5 MG SUBL 1 tab po qd ASENAPINE MALEATE 84743350132 No Longer Active Vishal Hui MD Active ZALEPLON 10 MG CAPS 1 cap po every other night ZALEPLON 16186488245 No Longer Active Vishal Hui MD Active LYRICA 50 MG CAPS 1 tab po TID PREGABALIN 23341236328 No Longer Active Vishal Hui MD Active LORATADINE 10 MG TABS 1 tab po qd LORATADINE 29826157502 No Longer Active Vishal Hui MD Active VERAPAMIL HCL ER 180 MG CR-TABS 1 tab po bid VERAPAMIL HCL 52147085231 No Longer Active Vishal Hui MD Active MIRALAX POWD 1 capfull once daily POLYETHYLENE GLYCOL 3350 71502365038 No Longer Active Vishal Hui MD Active PREDNISONE 20 MG TABS 1 tab po qd PREDNISONE 10710145622 No Longer Active Renzo Thornton DO Active LEVOFLOXACIN 500 MG TABS 1 tab po qd LEVOFLOXACIN 76387551236 No Longer Active Renzo Thornton DO Active BUSPIRONE HCL 15 MG TABS 1 tab po TID BUSPIRONE HCL 62804869727 No Longer Active Renzo Thornton DO Active BENZTROPINE MESYLATE 1 MG TABS 1 tab po qd BENZTROPINE MESYLATE 34729637081 No Longer Active Renzo Thornton DO Active ATENOLOL 25 MG TABS 1 tab po qd ATENOLOL 72056627596 No Longer Active Renzo Thornton DO Active ESCITALOPRAM OXALATE 20 MG TABS 1 tab po qd ESCITALOPRAM OXALATE 13941413946 No Longer Active Renzo Thornton DO Active ADVAIR DISKUS 250-50 MCG/DOSE AEPB 1 puff BID FLUTICASONE-SALMETEROL 37803113345 No Longer Active Renzo Thornton DO Active PREDNISONE 20 MG TAB 2 tabs daily for 3 days, 1 tab daily for 3 days, 1/2 tab daily for 2 days PREDNISONE 55947252541 No Longer Active Vishal Hui MD Active CEFDINIR 300 MG CAPS by mouth twice a day CEFDINIR 55232812109 No Longer Active Vishal Hui MD Active LANSOPRAZOLE 30 MG CPDR 1 cap po qd LANSOPRAZOLE 08655649417 No Longer Active Vishal Hui MD Active BACLOFEN 20 MG TABS 1 tab po tid BACLOFEN 62735787553 No Longer Active Vishal Hui MD Active ADVAIR DISKUS 250-50 MCG/DOSE AEPB 1 puff BID ADVAIR DISKUS 250-50 MCG/DOSE AEPB FLUTICASONE-SALMETEROL Inactive ESCITALOPRAM OXALATE 20 MG TABS 1 tab po qd ESCITALOPRAM OXALATE 20 MG TABS 808596 ESCITALOPRAM OXALATE Inactive ATENOLOL 25 MG TABS 1 tab po qd ATENOLOL 25 MG TABS 637042 ATENOLOL Inactive BENZTROPINE MESYLATE 1 MG TABS 1 tab po qd BENZTROPINE MESYLATE 1 MG TABS 972661 BENZTROPINE MESYLATE Inactive BUSPIRONE HCL 15 MG TABS 1 tab po TID BUSPIRONE HCL 15 MG TABS 501567 BUSPIRONE HCL Inactive LEVOFLOXACIN 500 MG TABS 1 tab po qd LEVOFLOXACIN 500 MG TABS 428716 LEVOFLOXACIN Inactive PREDNISONE 20 MG TABS 1 tab po qd PREDNISONE 20 MG TABS 356161 PREDNISONE Inactive MIRALAX POWD 1 capfull once daily MIRALAX POWD 534507 POLYETHYLENE GLYCOL 3350 Inactive VERAPAMIL HCL ER 180 MG CR-TABS 1 tab po bid VERAPAMIL HCL ER 180 MG CR-TABS VERAPAMIL HCL Inactive LORATADINE 10 MG TABS 1 tab po qd LORATADINE 10 MG TABS 335076 LORATADINE Inactive LYRICA 50 MG CAPS 1 tab po TID LYRICA 50 MG CAPS PREGABALIN Inactive ZALEPLON 10 MG CAPS 1 cap po every other night ZALEPLON 10 MG CAPS 374349 ZALEPLON Inactive SAPHRIS 5 MG SUBL 1 tab po qd SAPHRIS 5 MG SUBL ASENAPINE MALEATE Inactive TRAZODONE HCL 50 MG TABS 1/2 tab po qd prn for anxiety TRAZODONE HCL 50 MG TABS 210496 TRAZODONE HCL Inactive LATUDA 20 MG TABS Take one by mouth daily LATUDA 20 MG TABS LURASIDONE HCL Inactive LISINOPRIL 20 MG TABS 1 tab po qd LISINOPRIL 20 MG TABS 456188 LISINOPRIL Inactive SAPHRIS 10 MG SUBL 1 [...] twice daily BACTRIM DS 800-160 MG TAB 738145 TRIMETHOPRIM-SULFAMETHOXAZOLE Inactive MULTIVITAMINS CAPS Take one by mouth daily MULTIVITAMINS CAPS MULTIPLE VITAMIN Inactive MELATONIN 3 MG CAPS 2 po q hs MELATONIN 3 MG CAPS 981955 MELATONIN Inactive KEFLEX 500 MG ORAL CAPS 1 cap QID by mouth KEFLEX 500 MG ORAL CAPS 108187 CEPHALEXIN Inactive CLINDAMYCIN HCL 150 MG CAPS 1 four times a day CLINDAMYCIN HCL 150 MG CAPS 19740326 CLINDAMYCIN HCL Inactive DIFLUCAN 150 MG TAB 1 tablet by mouth daily DIFLUCAN 150 MG TAB 515520 FLUCONAZOLE Inactive PROZAC 20 MG CAP Take one by mouth daily PROZAC 20 MG CAP 686682 FLUOXETINE HCL Inactive IBUPROFEN 600 MG TAB 1 po TID PRN IBUPROFEN 600 MG TAB 557383 IBUPROFEN Inactive VYVANSE 40 MG CAPS 1 daily, VYVANSE 40 MG CAPS LISDEXAMFETAMINE DIMESYLATE Inactive TRAZODONE HCL 100 MG TAB take 1 at bedtime TRAZODONE HCL 100 MG TAB 238068 TRAZODONE HCL Inactive AMITRIPTYLINE HCL 100 MG TAB one at hs AMITRIPTYLINE HCL 100 MG TAB 941518 AMITRIPTYLINE HCL Inactive AMLODIPINE BESYLATE 5 MG TABS 1 tablet by mouth daily AMLODIPINE BESYLATE 5 MG TABS 191793 AMLODIPINE BESYLATE Inactive LATUDA 80 MG TABS Take one by mouth daily LATUDA 80 MG TABS LURASIDONE HCL Inactive SAPHRIS 5 MG SUBL 1 po bid SAPHRIS 5 MG SUBL ASENAPINE MALEATE Inactive PREDNISONE 20 MG TAB 2 tabs daily for 4 days, 1 tab daily for 4 days, 1/2 tab daily for 4 days PREDNISONE 20 MG TAB 195475 PREDNISONE Inactive AMBIEN 5 MG ORAL TABS 1 tab at bedtime AMBIEN 5 MG ORAL TABS 949038 ZOLPIDEM TARTRATE Inactive PROZAC 20 MG ORAL CAPS 1 tab daily PROZAC 20 MG ORAL CAPS 629598 FLUOXETINE HCL Inactive ABILIFY 15 MG ORAL TABS 1 tab daily ABILIFY 15 MG ORAL TABS 943920 ARIPIPRAZOLE Inactive METOPROLOL TARTRATE 50 MG TAB 1 po bid METOPROLOL TARTRATE 50 MG TAB 540645 METOPROLOL TARTRATE Inactive TRAMADOL HCL 50 MG TABS 1-2 po TID PRN Pain TRAMADOL HCL 50 MG TABS 836795 TRAMADOL HCL Inactive PIROXICAM 20 MG CAPS 1 cap po qd PRN Pain PIROXICAM 20 MG CAPS 746834 PIROXICAM Inactive MINIPRESS 2 MG CAPS 4 cap po at night MINIPRESS 2 MG CAPS 039383 PRAZOSIN HCL Inactive MIRALAX PACK 1 po qd PRN Constipation MIRALAX PACK 226215 POLYETHYLENE GLYCOL 3350 Inactive METOPROLOL TARTRATE 25 MG ORAL TABS 1/2 tablet twice daily for heart rate and blood pressure METOPROLOL TARTRATE 25 MG ORAL TABS 172040 METOPROLOL TARTRATE Inactive VALIUM 5 MG TAB Take 1-2 tablets daily VALIUM 5 MG TAB 743420 DIAZEPAM Inactive FLAGYL 500 MG TAB 1 tablet by mouth bid FLAGYL 500 MG TAB 136011 METRONIDAZOLE Inactive DICLOFENAC POTASSIUM TABS Take 1 tablet twice a day (pt. is not sure of the dose.) DICLOFENAC POTASSIUM TABS DICLOFENAC POTASSIUM TABS Inactive ZITHROMAX Z-EARNEST 250 MG TABS 2 today and then 1 daily for 4 days ZITHROMAX Z-EARNEST 250 MG TABS 4736642 AZITHROMYCIN Inactive PREDNISONE 20 MG TABS 2 daily for 5 days then 1 daily for 5 days PREDNISONE 20 MG TABS 594466 PREDNISONE Inactive PROAIR HFA 108 (90 BASE) MCG/ACT AERS 2 puffs four times a day as needed 2015 PROAIR HFA 108 (90 BASE) MCG/ACT AERS ALBUTEROL SULFATE Inactive HYDROCODONE-ACETAMINOPHEN 5-325 MG TABS 1 to 2 four times a day as needed for pain use until can be seen by specialist HYDROCODONE- ACETAMINOPHEN 5-325 MG TABS 733325 HYDROCODONE-ACETAMINOPHEN Inactive TESSALON PERLES 100 MG CAP 1 to 2 tablets by mouth 3 times daily as needed for cough TESSALON PERLES 100 MG CAP 096111 BENZONATATE Inactive CHANTIX STARTING MONTH EARNEST 0.5 [...] Pain 2015 DICLOFENAC SODIUM 50 MG TBEC 680501 DICLOFENAC SODIUM Inactive TOPAMAX 50 MG ORAL TABS 1 tab twice daily TOPAMAX 50 MG ORAL TABS 737236 TOPIRAMATE Inactive VIIBRYD 10 MG ORAL TABS Take 1 tablet once a day VIIBRYD 10 MG ORAL TABS VILAZODONE HCL Inactive LEVOFLOXACIN 500 MG ORAL TABS po daily LEVOFLOXACIN 500 MG ORAL TABS 244300 LEVOFLOXACIN Inactive METHYLPREDNISOLONE 4 MG ORAL TABS po daily METHYLPREDNISOLONE 4 MG ORAL TABS 619344 METHYLPREDNISOLONE Inactive OXYCODONE HCL ER 10 MG ORAL T12A 1/2 tab by mouth every 4 hours prn OXYCODONE HCL ER 10 MG ORAL T12A OXYCODONE HCL Inactive FLAGYL 500 MG TAB 1 tablet by mouth bid FLAGYL 500 MG TAB 621166 METRONIDAZOLE Inactive MONISTAT 7 COMBO PACK WOODROW 100 & 2 MG-% (9GM) VAG KIT 1 applicatorful per vagina q pm x 7 MONISTAT 7 COMBO PACK WOODROW 100 & 2 MG-% (9GM) VAG KIT MICONAZOLE NITRATE Inactive BACTRIM DS 800-160 MG TABS 1 twice a day BACTRIM DS 800-160 MG TABS 298072 SULFAMETHOXAZOLE-TRIMETHOPRIM Inactive TRAMADOL HCL 50 MG TABS 1/2-1 tab TID PRN TRAMADOL HCL 50 MG TABS 352863 TRAMADOL HCL Inactive ABILIFY MAINTENA 400 MG IM SUSR 400mg injection every 26 days ABILIFY MAINTENA 400 MG IM SUSR ARIPIPRAZOLE Inactive KLONOPIN 1 MG ORAL TABS 1 tab po TID KLONOPIN 1 MG ORAL TABS 294368 CLONAZEPAM Inactive ADVAIR DISKUS 250-50 MCG/DOSE INH AEPB 1 puff twice a day for asthma ADVAIR DISKUS 250-50 MCG/DOSE INH AEPB FLUTICASONE- SALMETEROL Inactive BENADRYL 25 MG CAP 4 po at bedtime for insomnia BENADRYL 25 MG CAP DIPHENHYDRAMINE HCL Inactive PREDNISONE 20 MG TABS 2 daily for 5 days then 1 daily for 5 days PREDNISONE 20 MG TABS 103126 PREDNISONE Inactive HYDROCODONE-ACETAMINOPHEN 5-325 MG ORAL TABS 1 tab two times a day HYDROCODONE-ACETAMINOPHEN 5-325 MG ORAL TABS 253109 HYDROCODONE-ACETAMINOPHEN Inactive CEFDINIR 300 MG CAPS by mouth twice a day CEFDINIR 300 MG CAPS 778864 CEFDINIR Inactive PREDNISONE 20 MG TAB 2 tabs daily for 3 days, 1 tab daily for 3 days, 1/2 tab daily for 2 days PREDNISONE 20 MG TAB 126861 PREDNISONE Inactive BACTRIM DS 800-160 MG TABS 1 po BID x 7 days BACTRIM DS 800-160 MG TABS 19820521 SULFAMETHOXAZOLE-TRIMETHOPRIM Inactive DIFLUCAN 150 MG TABS 1 pill every other day x 2 doses DIFLUCAN 150 MG TABS 073540 FLUCONAZOLE Inactive BACTRIM DS 800-160 MG TABS 1 pill by mouth twice daily BACTRIM DS 800-160 MG TABS 195482 SULFAMETHOXAZOLE-TRIMETHOPRIM Inactive KEFLEX 500 MG CAP 1 po TID x 10 days KEFLEX 500 MG CAP 024555 CEPHALEXIN Inactive Advance Directives Directive Description Start [...] 369 10^3/MM^3 10*3/mm3 142-424 Lab Report: Chlamydia/GC [id number] - Lab chlamydia DNA probe NOT DETECTED NOT DETECTED Lab Report: Chlamydia/GC [id number] - Microbiology Neisseria gonorrhoeae DNA probe NOT DETECTED NOT DETECTED Lab Report: Comp. Metabolic Panel - Chemistry sodium, serum 142 mmol/L 698-516 0932/06/08 carbon dioxide, venous blood 27.6 mmol/L 21.0-32.0 potassium, serum 4.0 mmol/L 3.5-5.2 chloride, serum 105 mmol/L 98-107 blood glucose 95 mg/dL 65-110 urea nitrogen, blood 8 mg/dL 7-18 creatinine, serum 0.75 mg/dL 0.55-1.30 alanine aminotransferase (SGPT), serum 49 U/L -78 aspartate aminotransferase (SGOT), serum 28 U/L 15-37 calcium, serum 9.4 mg/dL 8.5-10.1 bilirubin, serum, total 0.30 mg/dL 0.00-1.00 sodium, serum 140 mmol/L 284-497 0540/08/08 carbon dioxide, venous blood 33.7 mmol/L 21.0-32.0 [...] mg/dL Encounters Code Encounter Date Provider Facility CPT-96156 Level 3 Est. Patient 11:47:37 CUSTOM DRESSMAKER Ahmet Carbajal MD [facility] CPT-13399 Level 3 Est. Patient 10:40:11 CUSTOM DRESSMAKER Ahmet Carbajal MD [facility] CPT-15917 Level 3 Est. Patient 15:07:06 CUSTOM DRESSMAKER Neeraj Collins MD [facility] CPT-08379 Level 4 Est. Patient 14:45:00 CUSTOM DRESSMAKER Ahmet Carbajal MD [facility] CPT-28954 Level 3 Est. Patient 13:59:59 CDT Luigi Martínez [facility] CPT-96649 Level 3 Est. Patient 18:18:53 CDT Neeraj Collins MD [facility] CPT-23827 Level 3 Est. Patient 15:50:44 CDT Vishal Hui MD [facility] CPT-30975 Level 3 Est. Patient 11:36:17 CDT Ahmet Carbajal MD [facility] CPT-14467 Level 3 Est. Patient 13:29:16 CDT Vishal Hui MD [facility] CPT-55748 Level 3 Est. Patient 14:27:52 CDT Neeraj Collins MD [facility] CPT-45497 Level 3 Est. Patient 08:56:03 CDT Luigi Martínez [facility] CPT-40460 Level 4 Est. Patient 12:11:48 CDT Fabiola Johnson [facility] CPT-39833 Level 3 New Patient 16:53:37 CDT Albert Caldera MD [facility] CPT-68154 Level 3 Est. Patient 11:25:49 CDT Renzo Thornton DO [facility] CPT-48030 Level 3 Est. Patient 15:22:01 CDT Ahmet Carbajal MD [facility] CPT-90366 Level 4 Est. Patient 09:00:51 CUSTOM DRESSMAKER Vishal Hui MD [facility] CPT-72395 Level 3 Est. Patient 11:37:33 CUSTOM DRESSMAKER Vishal Hui MD [facility] CPT-84890 Level 3 Est. Patient 08:41:09 CUSTOM DRESSMAKER Vishal Hui MD [facility] CPT-81583 Level 4 Est. Patient 10:19:35 CUSTOM DRESSMAKER Vishal Hui MD [facility] CPT-96833 Level 3 Est. Patient 13:35:45 CDT Vishal Hui MD [facility] CPT-33075 Level 4 Est. Patient 10:08:37 CDT Vishal Hui MD [facility] CPT-77729 Level 3 Est. Patient 11:22:10 CDT Vishal Hui MD [facility] CPT-18706 Level 3 Est. Patient 11:03:32 CDT Sahara Rodriguez MD [facility] CPT-09406 Level 3 Est. Patient 09:41:35 CDT Vishal Hui MD [facility] CPT-28774 Level 3 Est. Patient 12:00:41 CDT Neeraj Collins MD [facility] CPT-48962 Level 3 Est. Patient 09:16:24 CDT Vishal Hui MD [facility] CPT-64189 Level 4 Est. Patient 13:59:09 CDT Neeraj Collins MD [facility] CPT-32988 Level 3 Est. Patient 15:19:43 CDT Renzo Thornton DO [facility] CPT-68279 Level 3 Est. Patient 18:10:26 CDT Sahara Rodriguez MD [facility]-92057 Level 3 Est. Patient 14:49:50 CDT Vishal Hui MD [facility] CPT-48368 Level 4 Est. Patient 18:41:46 CDT Neeraj Collins MD [facility] CPT-[id number] Level 4 Est. Patient 09:18:38 [employer] Vishal Hui MD [facility] CPT-[id number] Level 3 Est. Patient 14:43:55 [employer] DRESS[employer] Vishal uHi MD [facility] CPT-[id number] Level 3 Est. Patient 15:26:33 C[employer]OM DRESSMAKER Sahara Rodriguez MD [facility] CPT-36931 Level 3 Est. Patient 10:32:14 CUSTOM DRESSMAKER Vishal Hui MD [facility] CPT-[id number] Level 3 Est. Patient 15:12:52 C[employer]ESS[employer] [facility] [facility] CPT-30755 Level 4 Est. Patient 09:19:27 CDT Vishal Hui MD [facility] CPT-59783 Level 3 Est. Patient 15:53:00 CDT Renzo Barajas [facility] CPT-23786 Level 3 Est. Patient 15:50:30 CDT Renzo Thornton [facility] CPT-81079 Level 3 Est. Patient 16:55:24 CDT Vishal Hui MD [facility] Procedures Code Procedure Name Date Entry Date Standard Description CPT-G0439 [facility] Annual Wellness Exam 09:30:58 [employer] CPT-16925 TSH - LAB USE ONLY 08:50:26 [employer] CPT-68517 CBC - LAB USE ONLY 08:50:26 [employer] CPT-20092 Venipuncture Draw Fee 08:50:26 [employer] CPT-43318 Abx/Therapy Injection 17:34:30 [employer] CPT-35506 Nexplanon Removal with Reinsertion 14:09:32 CDT CPT-J7307 Nexplanon (Implant) 14:09:32 CDT CPT-OV Office Visit 14:09:32 CDT CPT-65746 UA w micro - LAB USE ONLY 16:21:13 CDT CPT-98676 Wet Mount - LAB USE ONLY 16:21:13 CDT CPT-19748 First Vx - Ix admin for Medicare patients 14:37:47 CDT CPT-44184 Fluzone Preservative Free Intramuscular Suspension 14:37 :47 CDT CPT-43575 Abx/Therapy Injection 13:54:22 CDT CPT-71126 Abx/Therapy Injection 08:47:09 CDT CPT-93039 Abx/Therapy Injection 13:29:56 CDT CPT-68089 Abx/Therapy Injection 08:36:16 CDT CPT-38556 Wet Mount - LAB USE ONLY 17:44:58 CDT CPT-66205 UA w micro - LAB USE ONLY 17:44:58 CDT CPT-02785 CMP - LAB USE ONLY 17:44:58 CDT CPT-44288 Venipuncture Draw Fee 17:44:58 CDT CPT-46454 Cervical Min 4V - XRAY USE ONLY 09:01:40 CDT CPT-55823 Chest 2V Frontal and Lat - XRAY USE ONLY 11:06:31 CDT CPT-92798 EKG Trac and Interp - XRAY USE ONLY 11:31:43 CDT 08/26 CPT-J3420 Vitamin B12 1000mcg (Cyanocobalamin) 08:10:26 [employer] 04/12 CPT-10407 Abx/Therapy Injection 08:10:26 [employer] CPT-G0438 Initial Annual Wellness Exam 19:01:01 [employer] CPT-J3420 Vitamin B12 1000mcg (Cyanocobalamin) 16:57:46 CDT 08/14 CPT-95931 Recombivax HB Injection Suspension 5 MCG/0.5ML 08:37:50 [employer] CPT-67686 Immunization Single Admin 08:37:50 [employer] CPT-J3420 Vitamin B12 1000mcg (Cyanocobalamin) 08:32:16 [employer] 03/11 CPT-76668 Abx/Therapy Injection 08:32:16 [employer] CPT-52488 Chest 2V Frontal and Lat 11:46:38 [employer] CPT-33826 Venipuncture Draw Fee 09:12:45 [employer] CPT-J3420 Vitamin B12 1000mcg (Cyanocobalamin) 08:50:15 [employer]ER 02/08 CPT-38806 Abx/Therapy Injection 08:50:15 [employer]OM [employer] CPT-Cryo Cryotherapy 10:19:35 [employer] CPT-000 Give Appropriate Flu Vaccine 09:22:16 CDT CPT-J3420 Vitamin B12 1000mcg (Cyanocobalamin) 19:08:57 CDT 01/11 CPT-88458 Abx/Therapy Injection 19:08:57 CDT CPT-J3420 Vitamin B12 1000mcg (Cyanocobalamin) 08:19:08 CDT 12/11 CPT-35194 Abx/Therapy Injection 08:19:08 CDT CPT-J3420 Vitamin B12 1000mcg (Cyanocobalamin) 14:48:00 CDT 11/09 CPT-46680 Abx/Therapy Injection 14:47:59 CDT CPT-J3420 Vitamin B12 1000mcg (Cyanocobalamin) 08:34:04 CDT 10/09 CPT-58678 Abx/Therapy Injection 08:34:04 CDT CPT-J3420 Vitamin B12 1000mcg (Cyanocobalamin) 09:18:52 CDT 09/11 CPT-05934 Abx/Therapy Injection 09:18:52 CDT CPT-J3420 Vitamin B12 1000mcg (Cyanocobalamin) 08:35:44 CDT 09/04 CPT-18975 Abx/Therapy Injection 08:35:44 CDT CPT-43027 Immunization Single Admin 11:07:16 CDT CPT-97031 Hepatitis B adult IM 11:07:16 CDT CPT-J3420 Vitamin B12 1000mcg (Cyanocobalamin) 11:00:49 CDT 08/28 CPT-J1040 Depo Medrol 80 mg (Methyl Prednisolone Acetate) 11:00: 49 CDT CPT-87092 Abx/Therapy Injection 11:00:49 CDT CPT-J1040 Depo Medrol 80 mg (Methyl Prednisolone Acetate) 09:16: 23 CDT CPT-J3420 Vitamin B12 1000mcg (Cyanocobalamin) 08:27:05 CDT 08/20 CPT-79369 Abx/Therapy Injection 08:27:05 CDT CPT-93888 Recombivax HB Injection Suspension 5 MCG/0.5ML 10:00:41 CDT CPT-72102 Administration single or combination vaccine inc oral 10 :00:41 CDT CPT-42131 Sono transvag pelvis non OB uterus ovaries cervix 16:36: 57 CDT CPT-36546 LS spine comp w obliq 09:50:55 [employer] CPT-10224 Abd compl w upright 09:50:55 [employer] CPT-J1100 Decadron 4mg (Dexamethasone) 15:51:24 [employer] CPT-J1030 Depo Medrol 40 mg (Methyl Prednisolone Acetate) 15:51: 24 [employer] CPT-21612 Abx/Therapy Injection 15:51:24 C[employer]OM [employer]ESS[employer] CPT-J1100 Decadron 4mg (Dexamethasone) 15:26:33 [employer] CPT-J1030 Depo Medrol 40 mg (Methyl Prednisolone Acetate) 15:26: 33 [employer] CPT-67103 Sono retroperitoneal complete kidneys and bladder 17:15: 30 CDT CPT-44663 Abd compl w upright 16:09:25 CDT CPT-J1100 Decadron 8mg (Dexamethasone) 17:07:57 CDT CPT-17387 Abx/Therapy Injection 17:07:57 CDT CPT-J1100 Decadron 8mg (Dexamethasone) 16:55:24 CDT CPT-40519 Chest 2V Frontal and Lat 16:32:44 CDT
--- OUTSIDE RECORDS SUMMARY | 2016-11-04 12:55 | XMS REPORT ---
Author Author [facility] Medical Staff Organization [facility] Address [address] [place], [place] [id number] Phone [phone] Care Team Providers Care Pulp Grinder Name Role Phone TINO ABRAMS MD PP [phone] Summary purpose TRANSITION OF CARE AUTO GENERATION [...] Functional status Functional Status Finding Observation Time Ambulation Asst Dev none :27 Abdomen Appearance round [id number] Vick no :27 Urination normal :27 Quality sym/unlabored :27 Cough absent :27 Secretions no :27 Breath Sounds RUL clear :27 Breath Sounds RML clear :27 Breath Sounds RLL clear :27 Breath Sounds BENJA clear :27 Breath Sounds LLL clear :27 Airway natural :27 Oxygen no :45 Temp >100.4 no :27 Temp <96.8 no : Chills with rigors no : HR > 90bpm no :27 Respirations > 20 no : Systolic <90 no : headache stiff neck no :27 Nursing Note pt dismissed to home with rx for cephalexin and bacroban ointment , verbalized understanding of all instructions :45 Vital signs Type Value Date Respiration Rate 18breaths per minute :45 Pulse 86beats per minute :45 Oxygen Saturation 99% :45 BP Systolic 120mmHg :45 BP Diastolic 65mmHg :45 Temperature 97.4F :45 Social history Type Value Smoking Status FORMER SMOKER Treatment Plan No treatment plan text is available for this visit. Hospital discharge instructions Dismissal Condition good Disposition on DC home DC Inst/Educ Give yes Med/Side Effects Rev yes PNE Vac yes Flu Vac 2014 Tetanus Vac unk
--- OUTSIDE RECORDS SUMMARY | 2016-11-04 12:55 | XMS REPORT | Clinical Summary ---
Author Author Admin, BRIELLEE Organization [facility] Address Unknown Phone Unavailable Allergies, Adverse Reactions, [...] sites Morbid obesity 278.01 Active Juliet Kimbrough ASSOCIATE MEDICAL DIRECTOR Morbid obesity 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 Active Juliet [...] breath Nocturnal hypoxia 799.02 Active Fabiola Johnson ASSOCIATE MEDICAL DIRECTOR Hypoxemia Neck pain 723.1 Resolved Vishal Hui [...] fibula Vaginal discharge 623.5 Active Luigi Martínez ASSOCIATE MEDICAL DIRECTOR Leukorrhea, not specified as infective DYSURIA 788.1 [...] TABS 1/2-1 tab TID PRN TRAMADOL HCL 52594503420 Active Lynda Juarezephraim GRADUATE CIVIL ENGINEER Active PROAIR HFA 108 (90 BASE) MCG/ACT AERS 2 puffs four times a day as needed 2015 ALBUTEROL SULFATE 23584365947 Active Ahmet Carbajal MD Active EQ NICOTINE 21 MG/24HR TRANS PT24 Apply daily to stop smoking NICOTINE 11555271396 Active Ahmet Carbajal MD Active BACTRIM DS 800-160 MG TABS 1 twice a day SULFAMETHOXAZOLE- TRIMETHOPRIM 22311853526 Active Ahmet Carbajal MD Active ADVAIR DISKUS 250-50 MCG/DOSE INH AEPB 1 puff twice a day for asthma FLUTICASONE-SALMETEROL 80467426508 Active Ahmet Carbajal MD Active MONISTAT 7 COMBO PACK WOODROW 100 & 2 MG-% (9GM) VAG KIT 1 applicatorful per vagina q pm x 7 MICONAZOLE NITRATE 45935458277 No Longer Active Ahmet Carbajal MD Active FLAGYL 500 MG TAB 1 tablet by mouth bid METRONIDAZOLE 08864444867 No Longer Active Ahmet Carbajal MD Active OXYCODONE HCL ER 10 MG ORAL T12A 1/2 tab by mouth every 4 hours prn OXYCODONE HCL 53588122978 No Longer Active Ahmet Carbajal MD Active METHYLPREDNISOLONE 4 MG ORAL TABS po daily METHYLPREDNISOLONE 80321759968 No Longer Active Ahmet Carbajal MD Active LEVOFLOXACIN 500 MG ORAL TABS po daily LEVOFLOXACIN 00974671566 No Longer Active Ahmet Carbajal MD Active VIIBRYD 10 MG ORAL TABS Take 1 tablet once a day VILAZODONE HCL 59822095493 No Longer Active Ahmet Carbajal MD Active TOPAMAX 50 MG ORAL TABS 1 tab twice daily TOPIRAMATE 87533072726 No Longer Active Ahmet Carbajal MD Active DICLOFENAC SODIUM 50 MG TBEC 1 tablet by mouth four times daily PRN Pain 2015 DICLOFENAC SODIUM 24122276641 No Longer Active Ahmet Carbajal MD Active ADZENYS XR-ODT 6.3 MG ORAL TBED 1 tab po daily for ADHD AMPHETAMINE 28469139038 No Longer Active Ahmet Carbajal MD Active CHANTIX 1 MG TABS 1 twice a day to help quit smoking VARENICLINE TARTRATE 96512892161 No Longer Active Dipika Burgos MD Active CHANTIX STARTING MONTH EARNEST 0.5 MG X 11 & 1 MG X 42 TABS take as directed 2015 VARENICLINE TARTRATE 26787779745 No Longer Active Dipika Burgos MD Active TESSALON PERLES 100 MG CAP 1 to 2 tablets by mouth 3 times daily as needed for cough BENZONATATE 43325522736 No Longer Active Luigi Martínez ASSOCIATE MEDICAL DIRECTOR Active GERALDOLIOMAR MAINTENA 400 MG IM SUSR 400mg injection every 26 days ARIPIPRAZOLE 69331080008 Active Silvia Casey GRADUATE CIVIL ENGINEER Active IMITREX 50 MG ORAL TABS 0.5 po x 1 PRN Headache. May repeat dose x 1 in 2 hours if needed SUMATRIPTAN SUCCINATE 98034030334 Active Vishal Hui MD Active HYDROCODONE-ACETAMINOPHEN 5-325 MG TABS 1 to 2 four times a day as needed for pain use until can be seen by specialist HYDROCODONE- ACETAMINOPHEN 21445310552 No Longer Active Vishal Hui MD Active PROAIR HFA 108 (90 BASE) MCG/ACT AERS 2 puffs four times a day as needed 2015 ALBUTEROL SULFATE 97574964797 No Longer Active Vishal Hui MD Active PREDNISONE 20 MG TABS 2 daily for 5 days then 1 daily for 5 days PREDNISONE 09027116379 No Longer Active Vishal Hui MD Active ZITHROMAX Z-EARNEST 250 MG TABS 2 today and then 1 daily for 4 days AZITHROMYCIN 02657901369 No Longer Active Vishal Hui MD Active DICLOFENAC POTASSIUM TABS Take 1 tablet twice a day (pt. is not sure of the dose.) DICLOFENAC POTASSIUM TABS 34443131947 No Longer Active Vishal Hui MD Active VERAPAMIL HCL ER 120 MG ORAL CR-TABS Take 1 tablet by mouth twice a day. VERAPAMIL HCL 69475550231 Active Vishal Hui MD Active FLAGYL 500 MG TAB 1 tablet by mouth bid METRONIDAZOLE 57440723771 No Longer Active Vishal Hui MD Active FLUTICASONE PROPIONATE 50 MCG/ACT SUSP 2 sprays each nostril daily before bed. FLUTICASONE PROPIONATE 01068519270 Active Fabiola Johnson APRN Active BENADRYL 25 MG CAP 4 po at bedtime for insomnia DIPHENHYDRAMINE HCL 46869256508 Active Fabiola Johnson APRN Active KLONOPIN 1 MG ORAL TABS 1 tab po TID CLONAZEPAM 27041449685 Active Fabiola Johnson APRN Active VALIUM 5 MG TAB Take 1-2 tablets daily DIAZEPAM 16023046862 No Longer Active Fabiola Johnson APRN Active METOPROLOL TARTRATE 25 MG ORAL TABS 1/2 tablet twice daily for heart rate and blood pressure METOPROLOL TARTRATE 49123700617 No Longer Active Fabiola Johnson APRN Active MIRALAX ORAL POWD 17GMS DAILY IN WATER POLYETHYLENE GLYCOL 3350 19964981369 Active Vishal Hui MD Active MIRALAX PACK 1 po qd PRN Constipation POLYETHYLENE GLYCOL 3350 27586664054 No Longer Active Ahmet Carbajal MD Active MINIPRESS 2 MG CAPS 4 cap po at night PRAZOSIN HCL 73777493720 No Longer Active Ahmet Carbajal MD Active PIROXICAM 20 MG CAPS 1 cap po qd PRN Pain PIROXICAM 54300348388 No Longer Active Ahmet Carbajal MD Active TRAMADOL HCL 50 MG TABS 1-2 po TID PRN Pain TRAMADOL HCL 23132020556 No Longer Active Ahmet Carbajal MD Active METOPROLOL TARTRATE 50 MG TAB 1 po bid METOPROLOL TARTRATE 03046203456 No Longer Active Ahmet Carbajal MD Active ABILIFY 15 MG ORAL TABS 1 tab daily ARIPIPRAZOLE 88667372900 No Longer Active Ahmet Carbajal MD Active PROZAC 20 MG ORAL CAPS 1 tab daily FLUOXETINE HCL 78295509826 No Longer Active Ahmet Carbajal MD Active AMBIEN 5 MG ORAL TABS 1 tab at bedtime ZOLPIDEM TARTRATE 65632968458 No Longer Active Ahmet Carbajal MD Active PREDNISONE 20 MG TAB 2 tabs daily for 4 days, 1 tab daily for 4 days, 1/2 tab daily for 4 days PREDNISONE 53843934494 No Longer Active Ahmet Carbajal MD Active KEFLEX 500 MG CAP 1 po TID x 10 days CEPHALEXIN 96939251455 No Longer Active Vishal Hui MD Active SAPHRIS 5 MG SUBL 1 po bid ASENAPINE MALEATE 31072320818 No Longer Active Luigi Martínez APRN Active LATUDA 80 MG TABS Take one by mouth daily LURASIDONE HCL 15609547376 No Longer Active Jillina Frazelephraim ASSOCIATE MEDICAL DIRECTOR Active AMLODIPINE BESYLATE 5 MG TABS 1 tablet by mouth daily AMLODIPINE BESYLATE 52156871601 No Longer Active Jillina Fralebron ASSOCIATE MEDICAL DIRECTOR Active AMITRIPTYLINE HCL 100 MG TAB one at hs AMITRIPTYLINE HCL 74462305603 No Longer Active Vishal Hui MD Active TRAZODONE HCL 100 MG TAB take 1 at bedtime TRAZODONE HCL 71012105477 No Longer Active Vishal Hui MD Active VYVANSE 40 MG CAPS 1 daily, LISDEXAMFETAMINE DIMESYLATE 23856215340 No Longer Active Vishal Hui MD Active IBUPROFEN 600 MG TAB 1 po TID PRN IBUPROFEN 49439159746 No Longer Active Vishal Hui MD Active PROZAC 20 MG CAP Take one by mouth daily FLUOXETINE HCL 24122243796 No Longer Active Vishal Hui MD Active ZOFRAN 4 MG TABS 1 po q6hr PRN Nausea ONDANSETRON HCL Active Vishal Hui MD Active BACTRIM DS 800-160 MG TABS 1 pill by mouth twice daily SULFAMETHOXAZOLE-TRIMETHOPRIM 26328506415 No Longer Active Sahara Rodriguez MD PhD Active DIFLUCAN 150 MG TAB 1 tablet by mouth daily FLUCONAZOLE 43702381734 No Longer Active Vishal Hui MD Active TIZANIDINE HCL 4 MG TABS 1 po q6hr PRN Muscle Spasm/Back Pain TIZANIDINE HCL 58880860768 Active Vishal Hui MD Active CLINDAMYCIN HCL 150 MG CAPS 1 four times a day CLINDAMYCIN HCL 47966752695 No Longer Active Neeraj Collins MD Active KEFLEX 500 MG ORAL CAPS 1 cap QID by mouth CEPHALEXIN 07387966200 No Longer Active Neeraj Collins MD Active DIFLUCAN 150 MG TABS 1 pill every other day x 2 doses FLUCONAZOLE 73987899157 No Longer Active Sahara Rodriguez MD PhD Active MELATONIN 3 MG CAPS 2 po q hs MELATONIN 19278454813 No Longer Active Sahara Rodriguez MD PhD Active MULTIVITAMINS CAPS Take one by mouth daily MULTIPLE VITAMIN 91639596571 No Longer Active Sahara Rodriguez MD PhD Active BACTRIM DS 800-160 MG TAB 1 tab by mouth twice daily TRIMETHOPRIM-SULFAMETHOXAZOLE 12482084731 No Longer Active Sahara Rodriguez MD PhD Active [facility] PROBIOTIC ORAL CHEW 2 daily po PROBIOTIC PRODUCT 41985703520 No Longer Active Sahara Rodriguez MD PhD Active BACTRIM DS 800-160 MG TABS 1 po BID x 7 days SULFAMETHOXAZOLE-TRIMETHOPRIM 48625929741 No Longer Active Vishal Hui MD Active CHANTIX STARTING MONTH EARNEST 0.5 MG X 11 & 1 MG X 42 TABS 0.5mg daily for 3 days , then 0.5mg BID for 4 days, then 1mg BID VARENICLINE TARTRATE 54124668553 No Longer Active TAMARA Gray Active VERAPAMIL HCL CR 120 MG TAB CR 1 po bid VERAPAMIL HCL 72469398413 No Longer Active Vishal Hui MD Active METOPROLOL SUCCINATE 50 MG TB24 1 tablet by mouth daily METOPROLOL SUCCINATE 69108596902 No Longer Active Vishal Hui MD Active SAPHRIS 10 MG SUBL 1 tab po bid ASENAPINE MALEATE 75822430630 No Longer Active Vishal Hui MD Active LISINOPRIL 20 MG TABS 1 tab po qd LISINOPRIL 53236849456 No Longer Active Vishal Hui MD Active LATUDA 20 MG TABS Take one by mouth daily LURASIDONE HCL 20172201231 No Longer Active Vishal Hui MD Active TRAZODONE HCL 50 MG TABS 1/2 tab po qd prn for anxiety TRAZODONE HCL 65256410239 No Longer Active Vishal Hui MD Active OMEPRAZOLE 20 MG TBEC 1 po q a.m. 30min prior to first food intake OMEPRAZOLE 22856197672 Active Vishal Hui MD Active RANITIDINE HCL 150 MG CAPS 1 twice a day RANITIDINE HCL 91513057014 Active Luigi Martínez ASSOCIATE MEDICAL DIRECTOR Active LINZESS 290 MCG CAPS Take one by mouth daily LINACLOTIDE 87191009055 No Longer Active Vishal Hui MD Active SAPHRIS 5 MG SUBL 1 tab po qd ASENAPINE MALEATE 44071581487 No Longer Active Vishal Hui MD Active ZALEPLON 10 MG CAPS 1 cap po every other night ZALEPLON 81667701982 No Longer Active Vishal Hui MD Active LYRICA 50 MG CAPS 1 tab po TID PREGABALIN 06725560923 No Longer Active Vishal Hui MD Active LORATADINE 10 MG TABS 1 tab po qd LORATADINE 74370776319 No Longer Active Vishal Hui MD Active VERAPAMIL HCL ER 180 MG CR-TABS 1 tab po bid VERAPAMIL HCL 43226113505 No Longer Active Vishal Hui MD Active MIRALAX POWD 1 capfull once daily POLYETHYLENE GLYCOL 3350 37417734552 No Longer Active Vishal Hui MD Active PREDNISONE 20 MG TABS 1 tab po qd PREDNISONE 57558666644 No Longer Active Renzo Thornton DO Active LEVOFLOXACIN 500 MG TABS 1 tab po qd LEVOFLOXACIN 70534105172 No Longer Active Renzo Thorntno DO Active BUSPIRONE HCL 15 MG TABS 1 tab po TID BUSPIRONE HCL 12310612518 No Longer Active Renzo Thonrton DO Active BENZTROPINE MESYLATE 1 MG TABS 1 tab po qd BENZTROPINE MESYLATE 18969371891 No Longer Active Renzo Thornton DO Active ATENOLOL 25 MG TABS 1 tab po qd ATENOLOL 77759626772 No Longer Active Renzo Thornton DO Active ESCITALOPRAM OXALATE 20 MG TABS 1 tab po qd ESCITALOPRAM OXALATE 26068048163 No Longer Active Renzo Thornton DO Active ADVAIR DISKUS 250-50 MCG/DOSE AEPB 1 puff BID FLUTICASONE-SALMETEROL 82077637442 No Longer Active Renzo Thornton DO Active PREDNISONE 20 MG TAB 2 tabs daily for 3 days, 1 tab daily for 3 days, 1/2 tab daily for 2 days PREDNISONE 33004123670 No Longer Active Vishal Hui MD Active CEFDINIR 300 MG CAPS by mouth twice a day CEFDINIR 39433557777 No Longer Active Vishal Hui MD Active LANSOPRAZOLE 30 MG CPDR 1 cap po qd LANSOPRAZOLE 71605738647 No Longer Active Vishal Hui MD Active BACLOFEN 20 MG TABS 1 tab po tid BACLOFEN 54081351105 No Longer Active Vishal Hui MD Active ADVAIR DISKUS 250-50 MCG/DOSE AEPB 1 puff BID ADVAIR DISKUS 250-50 MCG/DOSE AEPB FLUTICASONE-SALMETEROL Inactive ESCITALOPRAM OXALATE 20 MG TABS 1 tab po qd ESCITALOPRAM OXALATE 20 MG TABS 127087 ESCITALOPRAM OXALATE Inactive ATENOLOL 25 MG TABS 1 tab po qd ATENOLOL 25 MG TABS 394197 ATENOLOL Inactive BENZTROPINE MESYLATE 1 MG TABS 1 tab po qd BENZTROPINE MESYLATE 1 MG TABS 326512 BENZTROPINE MESYLATE Inactive BUSPIRONE HCL 15 MG TABS 1 tab po TID BUSPIRONE HCL 15 MG TABS 371481 BUSPIRONE HCL Inactive LEVOFLOXACIN 500 MG TABS 1 tab po qd LEVOFLOXACIN 500 MG TABS 440784 LEVOFLOXACIN Inactive PREDNISONE 20 MG TABS 1 tab po qd PREDNISONE 20 MG TABS 951774 PREDNISONE Inactive MIRALAX POWD 1 capfull once daily MIRALAX POWD 913482 POLYETHYLENE GLYCOL 3350 Inactive VERAPAMIL HCL ER 180 MG CR-TABS 1 tab po bid VERAPAMIL HCL ER 180 MG CR-TABS VERAPAMIL HCL Inactive LORATADINE 10 MG TABS 1 tab po qd LORATADINE 10 MG TABS 007703 LORATADINE Inactive LYRICA 50 MG CAPS 1 tab po TID LYRICA 50 MG CAPS PREGABALIN Inactive ZALEPLON 10 MG CAPS 1 cap po every other night ZALEPLON 10 MG CAPS 743218 ZALEPLON Inactive SAPHRIS 5 MG SUBL 1 tab po qd SAPHRIS 5 MG SUBL ASENAPINE MALEATE Inactive TRAZODONE HCL 50 MG TABS 1/2 tab po qd prn for anxiety TRAZODONE HCL 50 MG TABS 175249 TRAZODONE HCL Inactive LATUDA 20 MG TABS Take one by mouth daily LATUDA 20 MG TABS LURASIDONE HCL Inactive LISINOPRIL 20 MG TABS 1 tab po qd LISINOPRIL 20 MG TABS 700588 LISINOPRIL Inactive SAPHRIS 10 MG SUBL 1 [...] twice daily BACTRIM DS 800-160 MG TAB 141699 TRIMETHOPRIM-SULFAMETHOXAZOLE Inactive MULTIVITAMINS CAPS Take one by mouth daily MULTIVITAMINS CAPS MULTIPLE VITAMIN Inactive MELATONIN 3 MG CAPS 2 po q hs MELATONIN 3 MG CAPS 444724 MELATONIN Inactive KEFLEX 500 MG ORAL CAPS 1 cap QID by mouth KEFLEX 500 MG ORAL CAPS 299460 CEPHALEXIN Inactive CLINDAMYCIN HCL 150 MG CAPS 1 four times a day CLINDAMYCIN HCL 150 MG CAPS 19740326 CLINDAMYCIN HCL Inactive DIFLUCAN 150 MG TAB 1 tablet by mouth daily DIFLUCAN 150 MG TAB 665991 FLUCONAZOLE Inactive PROZAC 20 MG CAP Take one by mouth daily PROZAC 20 MG CAP 077866 FLUOXETINE HCL Inactive IBUPROFEN 600 MG TAB 1 po TID PRN IBUPROFEN 600 MG TAB 434730 IBUPROFEN Inactive VYVANSE 40 MG CAPS 1 daily, VYVANSE 40 MG CAPS LISDEXAMFETAMINE DIMESYLATE Inactive TRAZODONE HCL 100 MG TAB take 1 at bedtime TRAZODONE HCL 100 MG TAB 501569 TRAZODONE HCL Inactive AMITRIPTYLINE HCL 100 MG TAB one at hs AMITRIPTYLINE HCL 100 MG TAB 149615 AMITRIPTYLINE HCL Inactive AMLODIPINE BESYLATE 5 MG TABS 1 tablet by mouth daily AMLODIPINE BESYLATE 5 MG TABS 761777 AMLODIPINE BESYLATE Inactive LATUDA 80 MG TABS Take one by mouth daily LATUDA 80 MG TABS LURASIDONE HCL Inactive SAPHRIS 5 MG SUBL 1 po bid SAPHRIS 5 MG SUBL ASENAPINE MALEATE Inactive PREDNISONE 20 MG TAB 2 tabs daily for 4 days, 1 tab daily for 4 days, 1/2 tab daily for 4 days PREDNISONE 20 MG TAB 566065 PREDNISONE Inactive AMBIEN 5 MG ORAL TABS 1 tab at bedtime AMBIEN 5 MG ORAL TABS 245512 ZOLPIDEM TARTRATE Inactive PROZAC 20 MG ORAL CAPS 1 tab daily PROZAC 20 MG ORAL CAPS 584462 FLUOXETINE HCL Inactive ABILIFY 15 MG ORAL TABS 1 tab daily ABILIFY 15 MG ORAL TABS 592301 ARIPIPRAZOLE Inactive METOPROLOL TARTRATE 50 MG TAB 1 po bid METOPROLOL TARTRATE 50 MG TAB 957560 METOPROLOL TARTRATE Inactive TRAMADOL HCL 50 MG TABS 1-2 po TID PRN Pain TRAMADOL HCL 50 MG TABS 495634 TRAMADOL HCL Inactive PIROXICAM 20 MG CAPS 1 cap po qd PRN Pain PIROXICAM 20 MG CAPS 684420 PIROXICAM Inactive MINIPRESS 2 MG CAPS 4 cap po at night MINIPRESS 2 MG CAPS 576342 PRAZOSIN HCL Inactive MIRALAX PACK 1 po qd PRN Constipation MIRALAX PACK 605549 POLYETHYLENE GLYCOL 3350 Inactive METOPROLOL TARTRATE 25 MG ORAL TABS 1/2 tablet twice daily for heart rate and blood pressure METOPROLOL TARTRATE 25 MG ORAL TABS 255480 METOPROLOL TARTRATE Inactive VALIUM 5 MG TAB Take 1-2 tablets daily VALIUM 5 MG TAB 554634 DIAZEPAM Inactive FLAGYL 500 MG TAB 1 tablet by mouth bid FLAGYL 500 MG TAB 963896 METRONIDAZOLE Inactive DICLOFENAC POTASSIUM TABS Take 1 tablet twice a day (pt. is not sure of the dose.) DICLOFENAC POTASSIUM TABS DICLOFENAC POTASSIUM TABS Inactive ZITHROMAX Z-EARNEST 250 MG TABS 2 today and then 1 daily for 4 days ZITHROMAX Z-EARNEST 250 MG TABS 3405529 AZITHROMYCIN Inactive PREDNISONE 20 MG TABS 2 daily for 5 days then 1 daily for 5 days PREDNISONE 20 MG TABS 992147 PREDNISONE Inactive PROAIR HFA 108 (90 BASE) MCG/ACT AERS 2 puffs four times a day as needed 2015 PROAIR HFA 108 (90 BASE) MCG/ACT AERS ALBUTEROL SULFATE Inactive HYDROCODONE-ACETAMINOPHEN 5-325 MG TABS 1 to 2 four times a day as needed for pain use until can be seen by specialist HYDROCODONE- ACETAMINOPHEN 5-325 MG TABS 033831 HYDROCODONE-ACETAMINOPHEN Inactive TESSALON PERLES 100 MG CAP 1 to 2 tablets by mouth 3 times daily as needed for cough TESSALON PERLES 100 MG CAP 794092 BENZONATATE Inactive CHANTIX STARTING MONTH EARNEST 0.5 [...] Pain 2015 DICLOFENAC SODIUM 50 MG TBEC 852893 DICLOFENAC SODIUM Inactive TOPAMAX 50 MG ORAL TABS 1 tab twice daily TOPAMAX 50 MG ORAL TABS 408006 TOPIRAMATE Inactive VIIBRYD 10 MG ORAL TABS Take 1 tablet once a day VIIBRYD 10 MG ORAL TABS VILAZODONE HCL Inactive LEVOFLOXACIN 500 MG ORAL TABS po daily LEVOFLOXACIN 500 MG ORAL TABS 317720 LEVOFLOXACIN Inactive METHYLPREDNISOLONE 4 MG ORAL TABS po daily METHYLPREDNISOLONE 4 MG ORAL TABS 380138 METHYLPREDNISOLONE Inactive OXYCODONE HCL ER 10 MG ORAL T12A 1/2 tab by mouth every 4 hours prn OXYCODONE HCL ER 10 MG ORAL T12A OXYCODONE HCL Inactive FLAGYL 500 MG TAB 1 tablet by mouth bid FLAGYL 500 MG TAB 378416 METRONIDAZOLE Inactive MONISTAT 7 COMBO PACK WOODROW 100 & 2 MG-% (9GM) VAG KIT 1 applicatorful per vagina q pm x 7 MONISTAT 7 COMBO PACK WOODROW 100 & 2 MG-% (9GM) VAG KIT MICONAZOLE NITRATE Inactive CEFDINIR 300 MG CAPS by mouth twice a day CEFDINIR 300 MG CAPS 006816 CEFDINIR Inactive PREDNISONE 20 MG TAB 2 tabs daily for 3 days, 1 tab daily for 3 days, 1/2 tab daily for 2 days PREDNISONE 20 MG TAB 674033 PREDNISONE Inactive BACTRIM DS 800-160 MG TABS 1 po BID x 7 days BACTRIM DS 800-160 MG TABS 19820521 SULFAMETHOXAZOLE-TRIMETHOPRIM Inactive DIFLUCAN 150 MG TABS 1 pill every other day x 2 doses DIFLUCAN 150 MG TABS 157475 FLUCONAZOLE Inactive BACTRIM DS 800-160 MG TABS 1 pill by mouth twice daily BACTRIM DS 800-160 MG TABS 19820521 SULFAMETHOXAZOLE-TRIMETHOPRIM Inactive KEFLEX 500 MG CAP 1 po TID x 10 days KEFLEX 500 MG CAP 728988 CEPHALEXIN Inactive Advance Directives Directive Description Start [...] pressure, diastolic - 8462-4 92 mm[Hg] BP cmnally blood pressure, systolic - 8480-6 144 mm[Hg] [...] % 11.6-14.8 platelet count 394 10^3/MM^3 10*3/mm3 108-898 4108/01/11 leukocyte count, blood 13.8 10^3/MM^3 10*3/mm3 4.6-10.2 [...] Panel - Chemistry sodium, serum 139 mmol/L 307-708 3932/12/03 carbon dioxide, venous blood 28.5 mmol/L 21.0-32.0 [...] 5.5 % 4.3-6.0 cholesterol, serum 159 mg/dL 408-664 6820/12/03 triglyceride, serum, fasting 118 mg/dL 30-200 HDL [...] 362 10^3/MM^3 10*3/mm3 142-424 Lab Report: Chlamydia/GC [id number] - Lab chlamydia DNA probe NOT DETECTED NOT DETECTED Lab Report: Chlamydia/GC [id number] - Microbiology Neisseria gonorrhoeae DNA probe NOT DETECTED NOT DETECTED Lab Report: Comp. Metabolic Panel - Chemistry sodium, serum 140 mmol/L 504-504 4003/08/08 carbon dioxide, venous blood 33.7 mmol/L 21.0-32.0 potassium, serum 5.0 mmol/L 3.5-5.2 chloride, serum 103 mmol/L 98-107 blood glucose 80 mg/dL 65-110 urea nitrogen, blood 13 mg/dL 7-18 creatinine, serum 0.88 mg/dL 0.55-1.30 alanine aminotransferase (SGPT), serum 54 U/L 12-78 aspartate aminotransferase (SGOT), serum 29 U/L 15-37 calcium, serum 9.7 mg/dL 8.5-10.1 bilirubin, serum, total 0.30 mg/dL 0.00-1.00 sodium, serum 139 mmol/L 901-819 1824/12/22 carbon dioxide, venous blood 26.8 mmol/L 21.0-32.0 potassium, serum 4.2 mmol/L 3.5-5.2 chloride, serum 103 mmol/L 98-107 blood glucose 115 mg/dL 65-110 urea nitrogen, blood 20 mg/dL 7-18 creatinine, serum 0.90 mg/dL 0.55-1.30 alanine aminotransferase (SGPT), serum 38 U/L - aspartate aminotransferase (SGOT), serum 19 U/L 15-37 calcium, serum 8.6 mg/dL 8.5-10.1 bilirubin, serum, total 0.30 mg/dL 0.00-1.00 sodium, serum 139 mmol/L 147-251 6345/01/11 carbon dioxide, venous blood 26.6 mmol/L 21.0-32.0 potassium, serum 4.1 mmol/L 3.5-5.2 chloride, serum 100 mmol/L 98-107 blood glucose 86 mg/dL 65-110 urea nitrogen, blood 16 mg/dL 7-18 creatinine, serum 1.00 mg/dL 0.55-1.30 alanine aminotransferase (SGPT), serum 48 U/L aspartate aminotransferase (SGOT), serum 17 U/L 15-37 calcium, serum 9.1 mg/dL 8.5-10.1 bilirubin, serum, total 0.40 mg/dL 0.00-1.00 sodium, serum 142 mmol/L 272-594 8433/06/08 carbon dioxide, venous blood 27.6 mmol/L 21.0-32.0 [...] Rate - Chemistry sodium, serum 139 mmol/L 225-888 2338/12/11 carbon dioxide, venous blood 25.4 mmol/L 21.0-32.0 [...] 6.0 5.0-8.5 pH, urine, semiquantitative 5.5 5.0-8.5 specific gravity, urine 1.025 1.000-1.030 appearance, urine Clear Clear urine color Yellow Colorless;Lightyellow;Straw;Yellow urine color Yellow Colorless;Lightyellow;Straw;Yellow appearance, urine Clear [...] mg/dL Encounters Code Encounter Date Provider Facility CPT-75304 Level 3 Est. Patient 15:07:06 COLOR PRINTER OPERATOR Neeraj Collins [facility] CPT-98495 Level 4 Est. Patient 14:45:00 COLOR PRINTER OPERATOR Ahmet Carbajal [facility] CPT-39248 Level 3 Est. Patient 13:59:59 CDT Luigi Martínez APRN [facility] CPT-95706 Level 3 Est. Patient 18:18:53 CDT Neeraj Collins [facility] CPT-71109 Level 3 Est. Patient 15:50:44 CDT Vishal Hui MD [facility] CPT-98575 Level 3 Est. Patient 11:36:17 CDT Ahmet Carbajal [facility] CPT-00372 Level 3 Est. Patient 13:29:16 CDT Vishal Hui MD [facility] CPT-56072 Level 3 Est. Patient 14:27:52 CDT Neeraj Collins [facility] CPT-47681 Level 3 Est. Patient 08:56:03 CDT Luigi Marítnez [facility] CPT-74461 Level 4 Est. Patient 12:11:48 CDT Fabiola Johnson [facility] CPT-97423 Level 3 New Patient 16:53:37 CDT Albert Caldera [facility] CPT-30271 Level 3 Est. Patient 11:25:49 CDT Renzo Thornton DO [facility] CPT-21159 Level 3 Est. Patient 15:22:01 CDT Ahmet Carbajal MD [facility] CPT-09713 Level 4 Est. Patient 09:00:51 COLOR PRINTER OPERATOR Vishal Hui MD [facility] CPT-23455 Level 3 Est. Patient 11:37:33 COLOR PRINTER OPERATOR Vishal Hui MD [facility] CPT-89624 Level 3 Est. Patient 08:41:09 COLOR PRINTER OPERATOR Vishal Hui MD [facility] CPT-15300 Level 4 Est. Patient 10:19:35 COLOR PRINTER OPERATOR Vishal Hui MD [facility] CPT-52289 Level 3 Est. Patient 13:35:45 CDT Vishal Hui MD [facility] CPT-27036 Level 4 Est. Patient 10:08:37 CDT Vishal Hui MD [facility] CPT-01415 Level 3 Est. Patient 11:22:10 CDT Vishal Hui MD [facility] CPT-27063 Level 3 Est. Patient 11:03:32 CDT Sahara Rodriguez MD [facility] CPT-58032 Level 3 Est. Patient 09:41:35 CDT Vishal Hui MD [facility] CPT-30558 Level 3 Est. Patient 12:00:41 CDT Neeraj Collins MD [facility] CPT-28301 Level 3 Est. Patient 09:16:24 CDT Vishal Hui MD [facility] CPT-01408 Level 4 Est. Patient 13:59:09 CDT Neeraj Collins MD [facility] CPT-38833 Level 3 Est. Patient 15:19:43 CDT Renzo Thornton [facility] CPT-00646 Level 3 Est. Patient 18:10:26 CDT Sahara Rodriguez MD [facility] CPT-18218 Level 3 Est. Patient 14:49:50 CDT Vishal Hui MD [facility] CPT-67338 Level 4 Est. Patient 18:41:46 CDT Neeraj Collins MD [facility] CPT-51184 Level 4 Est. Patient 09:18:38 COLOR PRINTER OPERATOR Vishal Hui MD [facility] CPT-19968 Level 3 Est. Patient 14:43:55 COLOR PRINTER OPERATOR Vishal Hui MD [facility] CPT-19311 Level 3 Est. Patient 15:26:33 COLOR PRINTER OPERATOR Sahara Rodriguez MD [facility] CPT-32242 Level 3 Est. Patient 10:32:14 COLOR PRINTER OPERATOR Vishal Hui MD [facility] CPT-15172 Level 3 Est. 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 Patient 09:19:27 CDT [facility] CPT-60112 Level 3 Est. Patient 15:53:00 CDT Renzo Thornton [facility] CPT-87222 Level 3 Est. Patient 15:50:30 CDT Renzo Thornton [facility] CPT-54189 Level 3 Est. Patient 16:55:24 CDT Vishal Hui MD [facility] Procedures Code Procedure Name Date Entry Date Standard Description CPT-79074 Abx/Therapy Injection 17:34:30 COLOR PRINTER OPERATOR CPT-59238 Nexplanon Removal with Reinsertion 14:09:32 CDT CPT-J7307 Nexplanon (Implant) 14:09:32 CDT CPT-OV Office Visit 14:09:32 CDT CPT-43552 UA w micro - LAB USE ONLY 16:21:13 CDT CPT-90182 Wet Mount - LAB USE ONLY 16:21:13 CDT CPT-65916 First Vx - Ix admin for Medicare patients 14:37:47 CDT CPT-61549 Fluzone Preservative Free Intramuscular Suspension 14:37 :47 CDT CPT-63758 Abx/Therapy Injection 13:54:22 CDT CPT-18201 Abx/Therapy Injection 08:47:09 CDT CPT-02137 Abx/Therapy Injection 13:29:56 CDT CPT-40202 Abx/Therapy Injection 08:36:16 CDT CPT-86825 Wet Mount - LAB USE ONLY 17:44:58 CDT CPT-04832 UA w micro - LAB USE ONLY 17:44:58 CDT CPT-58350 CMP - LAB USE ONLY 17:44:58 CDT CPT-43970 Venipuncture Draw Fee 17:44:58 CDT CPT-66028 Cervical Min 4V - XRAY USE ONLY 09:01:40 CDT CPT-97099 Chest 2V Frontal and Lat - XRAY USE ONLY 11:06:31 CDT CPT-92903 EKG Trac and Interp - XRAY USE ONLY 11:31:43 CDT 08/26 CPT-J3420 Vitamin B12 1000mcg (Cyanocobalamin) 08:10:26 COLOR PRINTER OPERATOR 04/12 CPT-70587 Abx/Therapy Injection 08:10:26 COLOR PRINTER OPERATOR CPT-G0438 Initial Annual Wellness Exam 19:01:01 COLOR PRINTER OPERATOR CPT-J3420 Vitamin B12 1000mcg (Cyanocobalamin) 16:57:46 CDT 08/14 CPT-71817 Recombivax HB Injection Suspension 5 MCG/0.5ML 08:37:50 COLOR PRINTER OPERATOR CPT-84337 Immunization Single Admin 08:37:50 COLOR PRINTER OPERATOR CPT-J3420 Vitamin B12 1000mcg (Cyanocobalamin) 08:32:16 COLOR PRINTER OPERATOR 03/11 CPT-69053 Abx/Therapy Injection 08:32:16 COLOR PRINTER OPERATOR CPT-69936 Chest 2V Frontal and Lat 11:46:38 COLOR PRINTER OPERATOR CPT-73650 Venipuncture Draw Fee 09:12:45 COLOR PRINTER OPERATOR CPT-J3420 Vitamin B12 1000mcg (Cyanocobalamin) 08:50:15 COLOR PRINTER OPERATOR 02/08 CPT-77316 Abx/Therapy Injection 08:50:15 COLOR PRINTER OPERATOR CPT-Cryo Cryotherapy 10:19:35 COLOR PRINTER OPERATOR CPT-000 Give Appropriate Flu Vaccine 09:22:16 CDT CPT-J3420 Vitamin B12 1000mcg (Cyanocobalamin) 19:08:57 CDT 01/11 CPT-31130 Abx/Therapy Injection 19:08:57 CDT CPT-J3420 Vitamin B12 1000mcg (Cyanocobalamin) 08:19:08 CDT 12/11 CPT-63318 Abx/Therapy Injection 08:19:08 CDT CPT-J3420 Vitamin B12 1000mcg (Cyanocobalamin) 14:48:00 CDT 11/09 CPT-99636 Abx/Therapy Injection 14:47:59 CDT CPT-J3420 Vitamin B12 1000mcg (Cyanocobalamin) 08:34:04 CDT 10/09 CPT-78283 Abx/Therapy Injection 08:34:04 CDT CPT-J3420 Vitamin B12 1000mcg (Cyanocobalamin) 09:18:52 CDT 09/11 CPT-72006 Abx/Therapy Injection 09:18:52 CDT CPT-J3420 Vitamin B12 1000mcg (Cyanocobalamin) 08:35:44 CDT 09/04 CPT-48183 Abx/Therapy Injection 08:35:44 CDT CPT-49691 Immunization Single Admin 11:07:16 CDT CPT-50193 Hepatitis B adult IM 11:07:16 CDT CPT-J3420 Vitamin B12 1000mcg (Cyanocobalamin) 11:00:49 CDT 08/28 CPT-J1040 Depo Medrol 80 mg (Methyl Prednisolone Acetate) 11:00: 49 CDT CPT-13453 Abx/Therapy Injection 11:00:49 CDT CPT-J1040 Depo Medrol 80 mg (Methyl Prednisolone Acetate) 09:16: 23 CDT CPT-J3420 Vitamin B12 1000mcg (Cyanocobalamin) 08:27:05 CDT 08/20 CPT-25436 Abx/Therapy Injection 08:27:05 CDT CPT-73619 Recombivax HB Injection Suspension 5 MCG/0.5ML 10:00:41 CDT CPT-58733 Administration single or combination vaccine inc oral 10 :00:41 CDT CPT-51204 Sono transvag pelvis non OB uterus ovaries cervix 16:36: 57 CDT CPT-12348 LS spine comp w obliq 09:50:55 COLOR PRINTER OPERATOR CPT-21628 Abd compl w upright 09:50:55 COLOR PRINTER OPERATOR CPT-J1100 Decadron 4mg (Dexamethasone) 15:51:24 COLOR PRINTER OPERATOR CPT-J1030 Depo Medrol 40 mg (Methyl Prednisolone Acetate) 15:51: 24 COLOR PRINTER OPERATOR CPT-83379 Abx/Therapy Injection 15:51:24 COLOR PRINTER OPERATOR CPT-J1100 Decadron 4mg (Dexamethasone) 15:26:33 COLOR PRINTER OPERATOR CPT-J1030 Depo Medrol 40 mg (Methyl Prednisolone Acetate) 15:26: 33 COLOR PRINTER OPERATOR CPT-26485 Sono retroperitoneal complete kidneys and bladder 17:15: 30 CDT CPT-70685 Abd compl w upright 16:09:25 CDT CPT-J1100 Decadron 8mg (Dexamethasone) 17:07:57 CDT CPT-77979 Abx/Therapy Injection 17:07:57 CDT CPT-J1100 Decadron 8mg (Dexamethasone) 16:55:24 CDT CPT-33715 Chest 2V Frontal and Lat 16:32:44 CDT
--- OUTSIDE RECORDS SUMMARY | 2016-11-04 12:59 | XMS REPORT | Clinical Summary ---
Author Author Admin, [facility] Organization [facility] [employer] Address Unknown Phone Unavailable Allergies, Adverse Reactions, [...] hypertension Pneumonia, organism unspecified 486 Resolved Vishal Hiu MD Pneumonia, organism unspecified Flank pain, right 789.09 Resolved Vishal Hui MD Abdominal pain, other specified site; multiple sites G E R D 530.81 Resolved Vishal Hui MD Esophageal reflux Health screening V70.0 Resolved Suzan Boo APRN Routine general medical examination at a health care facility Sinus tachycardia 427.89 Resolved Suzan Rajeev HIGH SCHOOL ASSISTANT PRINCIPAL Other specified cardiac dysrhythmias Schizoaffective disorder 295.70 [...] Active Ahmet Carbajal MD Generalized anxiety disorder 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 well woman exam V72.31 Active Suzan Boo [...] MD Health screening ICD-V70.0 Inactive Suzan Boo HIGH SCHOOL ASSISTANT PRINCIPAL Sinus tachycardia ICD-427.89 Jim Boo APRN Smoker/tobacco [...] twice a day for 5 days TRIMETHOPRIM-SULFAMETHOXAZOLE 47503891767 Active Samantha MCDONALD Active MUPIROCIN 2 % OINT apply twice a day MUPIROCIN 81748719726 No Longer Active Suzan Boo APRN Active BACTRIM DS 800-160 MG TABS 1 twice a day SULFAMETHOXAZOLE-TRIMETHOPRIM 06623616789 No Longer Active Suzan Boo APRN Active DIFLUCAN 150 MG TABS 1 by mouth for yeast FLUCONAZOLE 66978063469 No Longer Active Suzan Boo APRN Active AMITIZA 8 MCG ORAL CAPS 1 capsule twice daily LUBIPROSTONE 28184485729 Active Sheila Calderon LPN Active LINZESS 290 MCG ORAL CAPS 1 tab 30 min prior to first meal each day. LINACLOTIDE 08911507526 No Longer Active Sheila Calderon LPN Active AMITIZA 8 MCG ORAL CAPS 1 tab BID LUBIPROSTONE 57127042566 No Longer Active Lynda Xiao LPN Active LACTULOSE 10 GM/15ML ORAL SOLN 30mL oral BID for IBS-C LACTULOSE 89169160989 Active Suzan Boo APRN Active TESSALON PERLES 100 MG CAPS 1 three times a day as needed for cough BENZONATATE 01861128731 No Longer Active Suzan Boo APRN Active BACTRIM DS 800-160 MG TABS 1 twice a day SULFAMETHOXAZOLE-TRIMETHOPRIM 24453840090 No Longer Active Suzan Boo APRN Active DIFLUCAN 150 MG TABS 1 by mouth for yeast FLUCONAZOLE 01328182988 No Longer Active Suzan Boo APRN Active EQ NICOTINE 21 MG/24HR TRANS PT24 Apply daily to stop smoking NICOTINE 95232869135 No Longer Active Suzan Boo APRN Active PREDNISONE 10 MG TABS 2 daily for 5 days then 1 daily for 5 days PREDNISONE 49533560826 No Longer Active Suzan Boo APRN Active LEVAQUIN 500 MG TABS 1 daily for infection LEVOFLOXACIN 01751641866 No Longer Active Suzan Boo APRN Active TROPICAMIDE 0.5 % OPHTH SOLN 1 drop PRN eye spasms TROPICAMIDE 72688865365 No Longer Active Suzan Boo APRN Active PREDNISONE 20 MG TAB 1 tablet daily x 4 days PREDNISONE 01693363508 No Longer Active Suzan Boo APRN Active ACETAMINOPHEN-CODEINE 120-12 MG/5ML SOLN 5 ml by mouth every 4-6 hours if needed for cough ACETAMINOPHEN-CODEINE 74665863976 No Longer Active Suzan Boo APRN Active KEFLEX 500 MG CAP 1 po qid CEPHALEXIN 86872304810 No Longer Active Suzan Boo APRN Active FLOVENT HFA 110 MCG/ACT AERO 2 puffs inhaled b.i.d. FLUTICASONE PROPIONATE HFA 09247180461 Active Renzo Thornton DO Active RISPERDAL 4 MG ORAL TABS 1 tab at bedtime RISPERIDONE 68665991179 Active Samantha Rothman RMA Active ZOFRAN 4 MG TABS 1 po q6hr PRN Nausea ONDANSETRON HCL No Longer Active Suzan Boo APRN Active FLUTICASONE PROPIONATE 50 MCG/ACT SUSP 2 sprays each nostril daily before bed. FLUTICASONE PROPIONATE 80506681953 No Longer Active Suzan Boo APRN Active ASPIRIN 325 MG ORAL TABS 1 tab q.d ASPIRIN 67289687525 No Longer Active Suzan Boo APRN Active HALOPERIDOL 10 MG ORAL TABS 1 tab q.d HALOPERIDOL 33040433914 No Longer Active Suzan Boo APRN Active GUAIFENESIN-CODEINE 100-10 MG/5ML SYRP 5ml every 4 to 6 hours as needed for cough GUAIFENESIN-CODEINE 65164922920 No Longer Active Suzan Boo APRN Active ZITHROMAX Z-EARNEST 250 MG TABS 2 today and then 1 daily for 4 days AZITHROMYCIN 94719599496 No Longer Active Suzan Boo APRN Active CLONAZEPAM 1 MG ORAL TABS 1 twice a day and an additional 1 tablet every other day as needed for pseudoseizures or anxiety CLONAZEPAM 18292561270 Active Suzan Boo APRN Active HYDROCODONE-ACETAMINOPHEN 5-325 MG ORAL TABS 1 tab two times a day HYDROCODONE-ACETAMINOPHEN 15714393354 No Longer Active Ahmet Carbajal MD Active LAMICTAL 100 MG ORAL TABS 1 tab 2 times qd. LAMOTRIGINE 57563914671 Active Ahmet Carbajal MD Active PREDNISONE 20 MG TABS 2 daily for 5 days then 1 daily for 5 days PREDNISONE 94813937066 No Longer Active Ahmet Carbajal MD Active FLUTICASONE PROPIONATE 50 MCG/ACT SUSP 1 to 2 sprays each nostril daily for allergies FLUTICASONE PROPIONATE 39262551349 Active Tila Valenzuela Active BENADRYL 25 MG CAP 4 po at bedtime for insomnia DIPHENHYDRAMINE HCL 27703670814 No Longer Active Ahmet Carbajal MD Active ADVAIR DISKUS 250-50 MCG/DOSE INH AEPB 1 puff twice a day for asthma FLUTICASONE-SALMETEROL 15896980957 No Longer Active Ahmet Carbajal MD Active KLONOPIN 1 MG ORAL TABS 1 tab po TID CLONAZEPAM 28769836902 No Longer Active Ahmet Carbajal MD Active ABILIFY MAINTENA 400 MG IM SUSR 400mg injection every 26 days ARIPIPRAZOLE 30333675721 No Longer Active Ahmet Carbajal MD Active TRAMADOL HCL 50 MG TABS 1/2-1 tab TID PRN TRAMADOL HCL 28092509832 No Longer Active Ahmet Carbajal MD Active BACTRIM DS 800-160 MG TABS 1 twice a day SULFAMETHOXAZOLE- TRIMETHOPRIM 22859291381 No Longer Active Ahmet Carbajal MD Active PROAIR HFA 108 (90 BASE) MCG/ACT AERS 2 puffs four times a day as needed 2015 ALBUTEROL SULFATE 92167928365 Active Honey Hinton HIGH S[employer]OL ASSISTANT PRINCIPAL Active MONISTAT 7 COMBO PACK WOODROW 100 & 2 MG-% (9GM) VAG KIT 1 applicatorful per vagina q pm x 7 MICONAZOLE NITRATE 20220417636 No Longer Active Ahmet Carbajal MD Active FLAGYL 500 MG TAB 1 tablet by mouth bid METRONIDAZOLE 94882640199 No Longer Active Ahmet Carbajal MD Active OXYCODONE HCL ER 10 MG ORAL T12A 1/2 tab by mouth every 4 hours prn OXYCODONE HCL 19204108627 No Longer Active Ahmet Carbajal MD Active METHYLPREDNISOLONE 4 MG ORAL TABS po daily METHYLPREDNISOLONE 07127798178 No Longer Active Ahmet Carbajal MD Active LEVOFLOXACIN 500 MG ORAL TABS po daily LEVOFLOXACIN 50378906916 No Longer Active Ahmet Carbajal MD Active VIIBRYD 10 MG ORAL TABS Take 1 tablet once a day VILAZODONE HCL 59788935439 No Longer Active Ahmet Carbajal MD Active TOPAMAX 50 MG ORAL TABS 1 tab twice daily TOPIRAMATE 01986993597 No Longer Active Ahmet Carbajal MD Active DICLOFENAC SODIUM 50 MG TBEC 1 tablet by mouth four times daily PRN Pain 2015 DICLOFENAC SODIUM 08621923499 No Longer Active Ahmet Carbajal MD Active ADZENYS XR-ODT 6.3 MG ORAL TBED 1 tab po daily for ADHD AMPHETAMINE 15616148952 No Longer Active Ahmet Carbajal MD Active CHANTIX 1 MG TABS 1 twice a day to help quit smoking VARENICLINE TARTRATE 48032206578 No Longer Active Dipika Burgos MD Active CHANTIX STARTING MONTH EARNEST 0.5 MG X 11 & 1 MG X 42 TABS take as directed 2015 VARENICLINE TARTRATE 96436648723 No Longer Active Dipika Burgos MD Active TESSALON PERLES 100 MG CAP 1 to 2 tablets by mouth 3 times daily as needed for cough BENZONATATE 37604403727 No Longer Active Luigi Martínez APRN Active IMITREX 50 MG ORAL TABS 0.5 po x 1 PRN Headache. May repeat dose x 1 in 2 hours if needed SUMATRIPTAN SUCCINATE 84091669780 Active Ahmet Carbajal MD Active HYDROCODONE-ACETAMINOPHEN 5-325 MG TABS 1 to 2 four times a day as needed for pain use until can be seen by specialist HYDROCODONE- ACETAMINOPHEN 39484266501 No Longer Active Vishal Hui MD Active PROAIR HFA 108 (90 BASE) MCG/ACT AERS 2 puffs four times a day as needed 2015 ALBUTEROL SULFATE 43217705548 No Longer Active Vishal Hui MD Active PREDNISONE 20 MG TABS 2 daily for 5 days then 1 daily for 5 days PREDNISONE 50633952893 No Longer Active Vishal Hui MD Active ZITHROMAX Z-EARNEST 250 MG TABS 2 today and then 1 daily for 4 days AZITHROMYCIN 49983235599 No Longer Active Vishal Hui MD Active DICLOFENAC POTASSIUM TABS Take 1 tablet twice a day (pt. is not sure of the dose.) DICLOFENAC POTASSIUM TABS 71746477363 No Longer Active Vishal Hui MD Active VERAPAMIL HCL ER 120 MG ORAL CR-TABS Take 1 tablet by mouth twice a day. VERAPAMIL HCL 16099734979 Active Vishal Hui MD Active FLAGYL 500 MG TAB 1 tablet by mouth bid METRONIDAZOLE 34809844185 No Longer Active Vishal Hui MD Active VALIUM 5 MG TAB Take 1-2 tablets daily DIAZEPAM 96834468931 No Longer Active Fabiola Johnson APRN Active METOPROLOL TARTRATE 25 MG ORAL TABS 1/2 tablet twice daily for heart rate and blood pressure METOPROLOL TARTRATE 50447201202 No Longer Active Fabiola Johnson APRN Active MIRALAX ORAL POWD 17GMS DAILY IN WATER POLYETHYLENE GLYCOL 3350 11234017079 Active TAMARA Casey Active MIRALAX PACK 1 po qd PRN Constipation POLYETHYLENE GLYCOL 3350 02029004930 No Longer Active Ahmet Carbajal MD Active MINIPRESS 2 MG CAPS 4 cap po at night PRAZOSIN HCL 71990582784 No Longer Active Ahmet Carbajal MD Active PIROXICAM 20 MG CAPS 1 cap po qd PRN Pain PIROXICAM 34224739805 No Longer Active Ahmet Carbajal MD Active TRAMADOL HCL 50 MG TABS 1-2 po TID PRN Pain TRAMADOL HCL 59217666984 No Longer Active Ahmet Carbajal MD Active METOPROLOL TARTRATE 50 MG TAB 1 po bid METOPROLOL TARTRATE 75548916850 No Longer Active Ahmet Carbajal MD Active ABILIFY 15 MG ORAL TABS 1 tab daily ARIPIPRAZOLE 26577368465 No Longer Active Ahmet Carbajal MD Active PROZAC 20 MG ORAL CAPS 1 tab daily FLUOXETINE HCL 02651228150 No Longer Active Ahmet Carbajal MD Active AMBIEN 5 MG ORAL TABS 1 tab at bedtime ZOLPIDEM TARTRATE 62770789877 No Longer Active Ahmet Carbajal MD Active PREDNISONE 20 MG TAB 2 tabs daily for 4 days, 1 tab daily for 4 days, 1/2 tab daily for 4 days PREDNISONE 23767085425 No Longer Active Ahmet Carbajal MD Active KEFLEX 500 MG CAP 1 po TID x 10 days CEPHALEXIN 07458318104 No Longer Active Vishal Hui MD Active SAPHRIS 5 MG SUBL 1 po bid ASENAPINE MALEATE 68077684156 No Longer Active Luigi Martínez APRN Active LATUDA 80 MG TABS Take one by mouth daily LURASIDONE HCL 92216662932 No Longer Active Luigi Martínez APRN Active AMLODIPINE BESYLATE 5 MG TABS 1 tablet by mouth daily AMLODIPINE BESYLATE 65149444039 No Longer Active Luigi Martínez APRN Active AMITRIPTYLINE HCL 100 MG TAB one at hs AMITRIPTYLINE HCL 78511150494 No Longer Active Vishal Hui MD Active TRAZODONE HCL 100 MG TAB take 1 at bedtime TRAZODONE HCL 53095296938 No Longer Active Vishal Hui MD Active VYVANSE 40 MG CAPS 1 daily, LISDEXAMFETAMINE DIMESYLATE 71829516895 No Longer Active Vishal Hui MD Active IBUPROFEN 600 MG TAB 1 po TID PRN IBUPROFEN 53115560020 No Longer Active Vishal Hui MD Active PROZAC 20 MG CAP Take one by mouth daily FLUOXETINE HCL 79967140719 No Longer Active Vishal Hui MD Active BACTRIM DS 800-160 MG TABS 1 pill by mouth twice daily SULFAMETHOXAZOLE-TRIMETHOPRIM 55577928591 No Longer Active Sahara Rodriguez MD PhD Active DIFLUCAN 150 MG TAB 1 tablet by mouth daily FLUCONAZOLE 20292011108 No Longer Active Vishal Hui MD Active TIZANIDINE HCL 4 MG TABS 1 po q6hr PRN Muscle Spasm/Back Pain TIZANIDINE HCL 82121599725 Active TAMARA Casey Active CLINDAMYCIN HCL 150 MG CAPS 1 four times a day CLINDAMYCIN HCL 18228675045 No Longer Active Neeraj Collins MD Active KEFLEX 500 MG ORAL CAPS 1 cap QID by mouth CEPHALEXIN 24802445181 No Longer Active Neeraj Collins MD Active DIFLUCAN 150 MG TABS 1 pill every other day x 2 doses FLUCONAZOLE 03825319742 No Longer Active Sahara Rodriguez MD PhD Active MELATONIN 3 MG CAPS 2 po q hs MELATONIN 76888285848 No Longer Active Sahara Rodriguez MD PhD Active MULTIVITAMINS CAPS Take one by mouth daily MULTIPLE VITAMIN 11524316153 No Longer Active Sahara Rodriguez MD PhD Active BACTRIM DS 800-160 MG TAB 1 tab by mouth twice daily TRIMETHOPRIM-SULFAMETHOXAZOLE 50658494272 No Longer Active Sahara Rodriguez MD PhD Active [facility] PROBIOTIC ORAL CHEW 2 daily po PROBIOTIC PRODUCT 23956582734 No Longer Active Sahara Rodriguez MD PhD Active BACTRIM DS 800-160 MG TABS 1 po BID x 7 days SULFAMETHOXAZOLE-TRIMETHOPRIM 11028118658 No Longer Active Vishal Hui MD Active CHANTIX STARTING MONTH EARNEST 0.5 MG X 11 & 1 MG X 42 TABS 0.5mg daily for 3 days , then 0.5mg BID for 4 days, then 1mg BID VARENICLINE TARTRATE 15450179659 No Longer Active TAMARA Gray Active VERAPAMIL HCL CR 120 MG TAB CR 1 po bid VERAPAMIL HCL 33461687853 No Longer Active Vishal Hui MD Active METOPROLOL SUCCINATE 50 MG TB24 1 tablet by mouth daily METOPROLOL SUCCINATE 43049424403 No Longer Active Vishal Hui MD Active SAPHRIS 10 MG SUBL 1 tab po bid ASENAPINE MALEATE 74827696645 No Longer Active Vishal Hui MD Active LISINOPRIL 20 MG TABS 1 tab po qd LISINOPRIL 11393876440 No Longer Active Vishal Hui MD Active LATUDA 20 MG TABS Take one by mouth daily LURASIDONE HCL 31676067111 No Longer Active Vishal Hui MD Active TRAZODONE HCL 50 MG TABS 1/2 tab po qd prn for anxiety TRAZODONE HCL 65561356843 No Longer Active Vishal Hui MD Active OMEPRAZOLE 20 MG TBEC 1 po q a.m. 30min prior to first food intake OMEPRAZOLE 28989633420 Active Bertha Kirby, RMA Active RANITIDINE HCL 150 MG CAPS 1 twice a day RANITIDINE HCL 16790366282 Active Lynda Xiao INDUSTRIAL RELATIONS OFFICER Active LINZESS 290 MCG CAPS Take one by mouth daily LINACLOTIDE 17918363848 No Longer Active Vishal Hui MD Active SAPHRIS 5 MG SUBL 1 tab po qd ASENAPINE MALEATE 20818336327 No Longer Active Vishal Hui MD Active ZALEPLON 10 MG CAPS 1 cap po every other night ZALEPLON 74646132072 No Longer Active Vishal Hui MD Active LYRICA 50 MG CAPS 1 tab po TID PREGABALIN 39805017192 No Longer Active Vishal Hui MD Active LORATADINE 10 MG TABS 1 tab po qd LORATADINE 83472212090 No Longer Active Vishal Hui MD Active VERAPAMIL HCL ER 180 MG CR-TABS 1 tab po bid VERAPAMIL HCL 80222868238 No Longer Active Vishal Hui MD Active MIRALAX POWD 1 capfull once daily POLYETHYLENE GLYCOL 3350 82295809776 No Longer Active Vishal Hui MD Active PREDNISONE 20 MG TABS 1 tab po qd PREDNISONE 64497642862 No Longer Active Renzo Thornton DO Active LEVOFLOXACIN 500 MG TABS 1 tab po qd LEVOFLOXACIN 44353282865 No Longer Active Renzo Thornton DO Active BUSPIRONE HCL 15 MG TABS 1 tab po TID BUSPIRONE HCL 39502402174 No Longer Active Renzo Thornton DO Active BENZTROPINE MESYLATE 1 MG TABS 1 tab po qd BENZTROPINE MESYLATE 71327425763 No Longer Active Renzo Thornton DO Active ATENOLOL 25 MG TABS 1 tab po qd ATENOLOL 97845402755 No Longer Active Renzo Thornton DO Active ESCITALOPRAM OXALATE 20 MG TABS 1 tab po qd ESCITALOPRAM OXALATE 19791494000 No Longer Active Renzo Thornton DO Active ADVAIR DISKUS 250-50 MCG/DOSE AEPB 1 puff BID FLUTICASONE-SALMETEROL 47591024542 No Longer Active Renzo Thornton DO Active PREDNISONE 20 MG TAB 2 tabs daily for 3 days, 1 tab daily for 3 days, 1/2 tab daily for 2 days PREDNISONE 50714491577 No Longer Active Vishal Hui MD Active CEFDINIR 300 MG CAPS by mouth twice a day CEFDINIR 83799798493 No Longer Active Vishal Hui MD Active LANSOPRAZOLE 30 MG CPDR 1 cap po qd LANSOPRAZOLE 01924678935 No Longer Active Vishal Hui MD Active BACLOFEN 20 MG TABS 1 tab po tid BACLOFEN 10862013831 No Longer Active Vishal Hui MD Active ADVAIR DISKUS 250-50 MCG/DOSE AEPB 1 puff BID ADVAIR DISKUS 250-50 MCG/DOSE AEPB FLUTICASONE-SALMETEROL Inactive ESCITALOPRAM OXALATE 20 MG TABS 1 tab po qd ESCITALOPRAM OXALATE 20 MG TABS 676349 ESCITALOPRAM OXALATE Inactive ATENOLOL 25 MG TABS 1 tab po qd ATENOLOL 25 MG TABS 365118 ATENOLOL Inactive BENZTROPINE MESYLATE 1 MG TABS 1 tab po qd BENZTROPINE MESYLATE 1 MG TABS 241003 BENZTROPINE MESYLATE Inactive BUSPIRONE HCL 15 MG TABS 1 tab po TID BUSPIRONE HCL 15 MG TABS 153434 BUSPIRONE HCL Inactive LEVOFLOXACIN 500 MG TABS 1 tab po qd LEVOFLOXACIN 500 MG TABS 665963 LEVOFLOXACIN Inactive PREDNISONE 20 MG TABS 1 tab po qd PREDNISONE 20 MG TABS 836793 PREDNISONE Inactive MIRALAX POWD 1 capfull once daily MIRALAX POWD 492779 POLYETHYLENE GLYCOL 3350 Inactive VERAPAMIL HCL ER 180 MG CR-TABS 1 tab po bid VERAPAMIL HCL ER 180 MG CR-TABS VERAPAMIL HCL Inactive LORATADINE 10 MG TABS 1 tab po qd LORATADINE 10 MG TABS 300611 LORATADINE Inactive LYRICA 50 MG CAPS 1 tab po TID LYRICA 50 MG CAPS PREGABALIN Inactive ZALEPLON 10 MG CAPS 1 cap po every other night ZALEPLON 10 MG CAPS 543611 ZALEPLON Inactive SAPHRIS 5 MG SUBL 1 tab po qd SAPHRIS 5 MG SUBL ASENAPINE MALEATE Inactive TRAZODONE HCL 50 MG TABS 1/2 tab po qd prn for anxiety TRAZODONE HCL 50 MG TABS 175305 TRAZODONE HCL Inactive LATUDA 20 MG TABS Take one by mouth daily LATUDA 20 MG TABS LURASIDONE HCL Inactive LISINOPRIL 20 MG TABS 1 tab po qd LISINOPRIL 20 MG TABS 604109 LISINOPRIL Inactive SAPHRIS 10 MG SUBL 1 [...] twice daily BACTRIM DS 800-160 MG TAB 369002 TRIMETHOPRIM-SULFAMETHOXAZOLE Inactive MULTIVITAMINS CAPS Take one by mouth daily MULTIVITAMINS CAPS MULTIPLE VITAMIN Inactive MELATONIN 3 MG CAPS 2 po q hs MELATONIN 3 MG CAPS 553968 MELATONIN Inactive KEFLEX 500 MG ORAL CAPS 1 cap QID by mouth KEFLEX 500 MG ORAL CAPS 207180 CEPHALEXIN Inactive CLINDAMYCIN HCL 150 MG CAPS 1 four times a day CLINDAMYCIN HCL 150 MG CAPS 671048 CLINDAMYCIN HCL Inactive DIFLUCAN 150 MG TAB 1 tablet by mouth daily DIFLUCAN 150 MG TAB 674801 FLUCONAZOLE Inactive PROZAC 20 MG CAP Take one by mouth daily PROZAC 20 MG CAP 110511 FLUOXETINE HCL Inactive IBUPROFEN 600 MG TAB 1 po TID PRN IBUPROFEN 600 MG TAB 809899 IBUPROFEN Inactive VYVANSE 40 MG CAPS 1 daily, VYVANSE 40 MG CAPS LISDEXAMFETAMINE DIMESYLATE Inactive TRAZODONE HCL 100 MG TAB take 1 at bedtime TRAZODONE HCL 100 MG TAB 395921 TRAZODONE HCL Inactive AMITRIPTYLINE HCL 100 MG TAB one at hs AMITRIPTYLINE HCL 100 MG TAB 455328 AMITRIPTYLINE HCL Inactive AMLODIPINE BESYLATE 5 MG TABS 1 tablet by mouth daily AMLODIPINE BESYLATE 5 MG TABS 172766 AMLODIPINE BESYLATE Inactive LATUDA 80 MG TABS Take one by mouth daily LATUDA 80 MG TABS LURASIDONE HCL Inactive SAPHRIS 5 MG SUBL 1 po bid SAPHRIS 5 MG SUBL ASENAPINE MALEATE Inactive PREDNISONE 20 MG TAB 2 tabs daily for 4 days, 1 tab daily for 4 days, 1/2 tab daily for 4 days PREDNISONE 20 MG TAB 074070 PREDNISONE Inactive AMBIEN 5 MG ORAL TABS 1 tab at bedtime AMBIEN 5 MG ORAL TABS 225445 ZOLPIDEM TARTRATE Inactive PROZAC 20 MG ORAL CAPS 1 tab daily PROZAC 20 MG ORAL CAPS 441059 FLUOXETINE HCL Inactive ABILIFY 15 MG ORAL TABS 1 tab daily ABILIFY 15 MG ORAL TABS 226311 ARIPIPRAZOLE Inactive METOPROLOL TARTRATE 50 MG TAB 1 po bid METOPROLOL TARTRATE 50 MG TAB 897060 METOPROLOL TARTRATE Inactive TRAMADOL HCL 50 MG TABS 1-2 po TID PRN Pain TRAMADOL HCL 50 MG TABS 092841 TRAMADOL HCL Inactive PIROXICAM 20 MG CAPS 1 cap po qd PRN Pain PIROXICAM 20 MG CAPS 174029 PIROXICAM Inactive MINIPRESS 2 MG CAPS 4 cap po at night MINIPRESS 2 MG CAPS 247012 PRAZOSIN HCL Inactive MIRALAX PACK 1 po qd PRN Constipation MIRALAX PACK 178501 POLYETHYLENE GLYCOL 3350 Inactive METOPROLOL TARTRATE 25 MG ORAL TABS 1/2 tablet twice daily for heart rate and blood pressure METOPROLOL TARTRATE 25 MG ORAL TABS 664813 METOPROLOL TARTRATE Inactive VALIUM 5 MG TAB Take 1-2 tablets daily VALIUM 5 MG TAB 567842 DIAZEPAM Inactive FLAGYL 500 MG TAB 1 tablet by mouth bid FLAGYL 500 MG TAB 549751 METRONIDAZOLE Inactive DICLOFENAC POTASSIUM TABS Take 1 tablet twice a day (pt. is not sure of the dose.) DICLOFENAC POTASSIUM TABS DICLOFENAC POTASSIUM TABS Inactive ZITHROMAX Z-EARNEST 250 MG TABS 2 today and then 1 daily for 4 days ZITHROMAX Z-EARNEST 250 MG TABS 1010874 AZITHROMYCIN Inactive PREDNISONE 20 MG TABS 2 daily for 5 days then 1 daily for 5 days PREDNISONE 20 MG TABS 213075 PREDNISONE Inactive PROAIR HFA 108 (90 BASE) MCG/ACT AERS 2 puffs four times a day as needed 2015 PROAIR HFA 108 (90 BASE) MCG/ACT AERS ALBUTEROL SULFATE Inactive HYDROCODONE-ACETAMINOPHEN 5-325 MG TABS 1 to 2 four times a day as needed for pain use until can be seen by specialist HYDROCODONE- ACETAMINOPHEN 5-325 MG TABS 947895 HYDROCODONE-ACETAMINOPHEN Inactive TESSALON PERLES 100 MG CAP 1 to 2 tablets by mouth 3 times daily as needed for cough TESSALON PERLES 100 MG CAP 520689 BENZONATATE Inactive CHANTIX STARTING MONTH EARNEST 0.5 [...] Pain 2015 DICLOFENAC SODIUM 50 MG TBEC 950667 DICLOFENAC SODIUM Inactive TOPAMAX 50 MG ORAL TABS 1 tab twice daily TOPAMAX 50 MG ORAL TABS 494867 TOPIRAMATE Inactive VIIBRYD 10 MG ORAL TABS Take 1 tablet once a day VIIBRYD 10 MG ORAL TABS VILAZODONE HCL Inactive LEVOFLOXACIN 500 MG ORAL TABS po daily LEVOFLOXACIN 500 MG ORAL TABS 861897 LEVOFLOXACIN Inactive METHYLPREDNISOLONE 4 MG ORAL TABS po daily METHYLPREDNISOLONE 4 MG ORAL TABS 623763 METHYLPREDNISOLONE Inactive OXYCODONE HCL ER 10 MG ORAL T12A 1/2 tab by mouth every 4 hours prn OXYCODONE HCL ER 10 MG ORAL T12A OXYCODONE HCL Inactive FLAGYL 500 MG TAB 1 tablet by mouth bid FLAGYL 500 MG TAB 410947 METRONIDAZOLE Inactive MONISTAT 7 COMBO PACK WOODROW 100 & 2 MG-% (9GM) VAG KIT 1 applicatorful per vagina q pm x 7 MONISTAT 7 COMBO PACK WOODROW 100 & 2 MG-% (9GM) VAG KIT MICONAZOLE NITRATE Inactive BACTRIM DS 800-160 MG TABS 1 twice a day BACTRIM DS 800-160 MG TABS 718298 SULFAMETHOXAZOLE-TRIMETHOPRIM Inactive TRAMADOL HCL 50 MG TABS 1/2-1 tab TID PRN TRAMADOL HCL 50 MG TABS 447512 TRAMADOL HCL Inactive ABILIFY MAINTENA 400 MG IM SUSR 400mg injection every 26 days ABILIFY MAINTENA 400 MG IM SUSR ARIPIPRAZOLE Inactive KLONOPIN 1 MG ORAL TABS 1 tab po TID KLONOPIN 1 MG ORAL TABS 796733 CLONAZEPAM Inactive ADVAIR DISKUS 250-50 MCG/DOSE INH AEPB 1 puff twice a day for asthma ADVAIR DISKUS 250-50 MCG/DOSE INH AEPB FLUTICASONE- SALMETEROL Inactive BENADRYL 25 MG CAP 4 po at bedtime for insomnia BENADRYL 25 MG CAP DIPHENHYDRAMINE HCL Inactive PREDNISONE 20 MG TABS 2 daily for 5 days then 1 daily for 5 days PREDNISONE 20 MG TABS 962453 PREDNISONE Inactive HYDROCODONE-ACETAMINOPHEN 5-325 MG ORAL TABS 1 tab two times a day HYDROCODONE-ACETAMINOPHEN 5-325 MG ORAL TABS 810321 HYDROCODONE-ACETAMINOPHEN Inactive ZITHROMAX Z-EARNEST 250 MG TABS 2 today and then 1 daily for 4 days ZITHROMAX Z-EARNEST 250 MG TABS 3878930 AZITHROMYCIN Inactive GUAIFENESIN-CODEINE 100-10 MG/5ML SYRP 5ml every 4 to 6 hours as needed for cough GUAIFENESIN-CODEINE 100-10 MG/5ML SYRP 582426 GUAIFENESIN-CODEINE Inactive HALOPERIDOL 10 MG ORAL TABS 1 tab q.d HALOPERIDOL 10 MG ORAL TABS 375605 HALOPERIDOL Inactive ASPIRIN 325 MG ORAL TABS 1 tab q.d ASPIRIN 325 MG ORAL TABS 731662 ASPIRIN Inactive FLUTICASONE PROPIONATE 50 MCG/ACT SUSP 2 sprays each nostril daily before bed. FLUTICASONE PROPIONATE 50 MCG/ACT SUSP 2429427 FLUTICASONE PROPIONATE Inactive ZOFRAN 4 MG TABS 1 po q6hr PRN Nausea ZOFRAN 4 MG TABS 660336 ONDANSETRON HCL Inactive KEFLEX 500 MG CAP 1 po qid KEFLEX 500 MG CAP 063747 CEPHALEXIN Inactive ACETAMINOPHEN-CODEINE 120-12 MG/5ML SOLN 5 ml by mouth every 4-6 hours if needed for cough ACETAMINOPHEN-CODEINE 120-12 MG/5ML SOLN 658127 ACETAMINOPHEN-CODEINE Inactive PREDNISONE 20 MG TAB 1 tablet daily x 4 days PREDNISONE 20 MG TAB 319883 PREDNISONE Inactive TROPICAMIDE 0.5 % OPHTH SOLN 1 drop PRN eye spasms TROPICAMIDE 0.5 % OPHTH SOLN 626516 TROPICAMIDE Inactive LEVAQUIN 500 MG TABS 1 daily for infection LEVAQUIN 500 MG TABS 791019 LEVOFLOXACIN Inactive PREDNISONE 10 MG TABS 2 daily for 5 days then 1 daily for 5 days PREDNISONE 10 MG TABS 706791 PREDNISONE Inactive EQ NICOTINE 21 MG/24HR TRANS PT24 Apply daily to stop smoking EQ NICOTINE 21 MG/24HR TRANS PT24 NICOTINE Inactive DIFLUCAN 150 MG TABS 1 by mouth for yeast DIFLUCAN 150 MG TABS 279851 FLUCONAZOLE Inactive BACTRIM DS 800-160 MG TABS 1 twice a day BACTRIM DS 800-160 MG TABS [id number] SULFAMETHOXAZOLE-TRIMETHOPRIM Inactive TESSALON PERLES 100 MG CAPS 1 three times a day as needed for cough TESSALON PERLES 100 MG CAPS 503084 BENZONATATE Inactive AMITIZA 8 MCG ORAL CAPS [...] twice a day MUPIROCIN 2 % OINT 942201 MUPIROCIN Inactive CEFDINIR 300 MG CAPS by mouth twice a day CEFDINIR 300 MG CAPS 079559 CEFDINIR Inactive PREDNISONE 20 MG TAB 2 tabs daily for 3 days, 1 tab daily for 3 days, 1/2 tab daily for 2 days PREDNISONE 20 MG TAB [id number] PREDNISONE Inactive BACTRIM DS 800-160 MG TABS [...] x 10 days KEFLEX 500 MG CAP 901082 CEPHALEXIN Inactive Advance Directives Directive Description Start [...] % 11.0-15.0 platelet count 443 THOUSAND/UL 10*3/mm3 351-694 0123/03/01 mean platelet volume 8.2 fL 7.5-12.5 leukocyte [...] % 11.0-15.0 platelet count 349 THOUSAND/UL 10*3/mm3 231-314 5921/04/12 mean platelet volume 8.4 fL 7.5-12.5 Lab [...] 369 10^3/MM^3 10*3/mm3 142-424 Lab Report: Chlamydia/GC APTIMA/64825 - Lab chlamydia DNA probe NOT DETECTED NOT DETECTED Lab Report: Chlamydia/GC APTIMA/15149 - Microbiology Neisseria gonorrhoeae DNA probe NOT DETECTED NOT DETECTED Lab Report: Chlamydia/GC APTIMA/06940, Urinalysis, Complete, with Reflex ... - Lab chlamydia DNA probe NOT DETECTED NOT DETECTED Lab Report: Chlamydia/GC APTIMA/11270, Urinalysis, Complete, with Reflex ... - Microbiology Neisseria gonorrhoeae DNA probe NOT DETECTED NOT DETECTED Lab Report: Chlamydia/GC APTIMA/98536, Urinalysis, Complete, with Reflex ... - Urinalysis microalbumin/total urine volume 2 mg/L Units converted. See lab report for original value. microalbumin/creatinine ratio, urine 9 MCG/MG CREAT mg/L <30 Lab Report: Comp. Metabolic Panel - Chemistry sodium, serum 140 mmol/L [phone]/08/08 carbon dioxide, venous blood 33.7 mmol/L 21.0-32.0 potassium, serum 5.0 mmol/L 3.5-5.2 chloride, serum 103 mmol/L 98-107 blood glucose 80 mg/dL 65-110 urea nitrogen, blood 13 mg/dL 7-18 creatinine, serum 0.88 mg/dL 0.55-1.30 alanine aminotransferase (SGPT), serum 54 U/L 12-78 aspartate aminotransferase (SGOT), serum 29 U/L 15-37 calcium, serum 9.7 mg/dL 8.5-10.1 bilirubin, serum, total 0.30 mg/dL 0.00-1.00 sodium, serum 140 mmol/L 570-163 1671/06/28 carbon dioxide, venous blood 23.8 mmol/L 21.0-32.0 [...] 1.020 1.000-1.030 pH, urine, semiquantitative 6.0 5.0-8.5 pH, urine, semiquantitative 6.0 5.0-8.5 specific gravity, urine 1.025 1.000-1.030 appearance, urine Clear Clear urine color Yellow Colorless;Lightyellow;Straw;Yellow urine color Yellow Colorless;Lightyellow;Straw;Yellow appearance, urine Clear Clear specific gravity, urine >=1.030 1.000-1.030 pH, urine, semiquantitative 5.0 5.0-8.5 Encounters Code Encounter Date Provider Facility CPT-05732 Level 3 Est. Patient 15:55:20 [facility] Patient 10:49:34 CDT [facility] CPT-23563 Level 3 Est. [facility] 10:00[facility] Level 3 Est. Patient 10:29:30 [facility]28[facility] Level 3 Est. Patient 11:04:38 CDT Renzo Thornton [facility] CPT-06963 Level 3 Est. Patient 11:15:58 SURGICAL INSTRUMENT REPAIR SPECIALIST Renzo Thornton [facility] CPT-47741 Level 3 Est. Patient 15:28:23 SURGICAL INSTRUMENT REPAIR SPECIALIST Suzan Boo [facility] [place] CPT-84030 Level 4 Est. Patient 10:20:54 SURGICAL INSTRUMENT REPAIR SPECIALIST Suzan Boo [facility] [place] CPT-41015 Level 3 Est. Patient 11:47:37 SURGICAL INSTRUMENT REPAIR SPECIALIST Ahmet Carbajal MD [facility] CPT-10819 Level 3 Est. Patient 10:40:11 SURGICAL INSTRUMENT REPAIR SPECIALIST Ahmet Carbajal MD [facility] CPT-73184 Level 3 Est. Patient 15:07:06 SURGICAL INSTRUMENT REPAIR SPECIALIST Neeraj Collins MD [facility] CPT-43655 Level 4 Est. Patient 14:45:00 SURGICAL INSTRUMENT REPAIR SPECIALIST Ahmet Carbajal MD [facility] CPT-12839 Level 3 Est. Patient 13:59:59 CDT Luigi Martínez [facility]-46036 Level 3 Est. Patient 18:18:53 CDT Neeraj Collins MD [facility] CPT-48796 Level 3 Est. Patient 15:50:44 CDT Vishal Hui MD [facility] CPT-46823 Level 3 Est. Patient 11:36:17 CDT Ahmet Carbajal MD [facility] CPT-94201 Level 3 Est. Patient 13:29:16 CDT Vishal Hui MD [facility] CPT-83025 Level 3 Est. Patient 14:27:52 CDT Neeraj Collins MD [facility] CPT-33423 Level 3 Est. Patient 08:56:[address] [facility] CPT-79403 Level 4 Est. Patient 12:11:[address] [facility] CPT-41899 Level 3 New Patient 16:53:37 CDT Albert Caldera MD [facility] CPT-66836 Level 3 Est. Patient 11:25:49 CDT Renzo Thornton DO [facility] CPT-10698 Level 3 Est. Patient 15:22:01 CDT Ahmet Carbajal MD [facility] CPT-89622 Level 4 Est. Patient 09:00:51 SURGICAL INSTRUMENT REPAIR SPECIALIST Vishal Hui MD [facility] CPT-69212 Level 3 Est. Patient 11:37:33 SURGICAL INSTRUMENT REPAIR SPECIALIST Vishal Hui MD [facility] CPT-59665 Level 3 Est. Patient 08:41:09 SURGICAL INSTRUMENT REPAIR SPECIALIST Vishal Hui MD [facility] CPT-63678 Level 4 Est. Patient 10:19:35 SURGICAL INSTRUMENT REPAIR SPECIALIST Vishal Hui MD [facility] CPT-62101 Level 3 Est. Patient 13:35:45 CDT Vishal Hui MD [facility] CPT-29781 Level 4 Est. Patient 10:08:37 CDT Vishal Hui MD [facility] CPT-83164 Level 3 Est. Patient 11:22:10 CDT Vishal Hui MD [facility] CPT-72036 Level 3 Est. Patient 11:03:32 CDT Sahara Rodriguez MD [facility]-47458 Level 3 Est. Patient 09:41:35 CDT Vishal Hui MD [facility]-02648 Level 3 Est. Patient 12:00:41 CDT Neeraj Collins MD [facility]-93675 Level 3 Est. Patient 09:16:24 CDT Vishal Hui MD [facility] CPT-09625 Level 4 Est. Patient 13:59:09 CDT Neeraj Collins MD [facility]-26621 Level 3 Est. Patient 15:19:43 CDT Renzo Thornton DO [facility] CPT-59354 Level 3 Est. Patient 18:10:26 CDT Sahara Rodriguez MD [facility]-05180 Level 3 Est. Patient 14:49:50 CDT Vishal Hui MD [facility] CPT-53683 Level 4 Est. Patient 18:41:46 CDT Neeraj Collins MD [facility]-11973 Level 4 Est. Patient 09:18:38 SURGICAL INSTRUMENT REPAIR SPECIALIST Vishal Hui MD [facility] CPT-17634 Level 3 Est. Patient 14:43:55 SURGICAL INSTRUMENT REPAIR SPECIALIST Vishal Hui MD [facility] CPT-01228 Level 3 Est. Patient 15:26:33 SURGICAL INSTRUMENT REPAIR SPECIALIST Sahara Rodriguez MD [facility] CPT-69317 Level 3 Est. Patient 10:32:14 SURGICAL INSTRUMENT REPAIR SPECIALIST Vishal Hui MD [facility]-11102 Level 3 Est. Patient 15:12:52 SURGICAL INSTRUMENT REPAIR SPECIALIST Vishal Hui MD [facility] CPT-88731 Level 4 Est. Patient 09:19:27 CDT Vishal Hui MD [facility]-69643 Level 3 Est. Patient 15:53:00 CDT Renzo Thornton [facility] CPT-68116 Level 3 Est. Patient 15:50:30 CDT Renzo Thornton [facility] CPT-95653 Level 3 Est. Patient 16:55:24 CDT Vishal Hui MD [facility] Procedures Code Procedure Name Date Entry Date Standard Description CPT-32590 EKG Trac and Interp - XRAY USE ONLY 15:59:30 CDT 09/13 CPT-99903 Chest 1V Frontal - XRAY USE ONLY 15:59:30 CDT CPT-86601 Venipuncture Draw Fee 15:44:02 CDT CPT-96797 Venipuncture Draw Fee 08:41:12 CDT CPT-27734 Abd compl w upright - XRAY USE ONLY 10:27:59 CDT 06/28 CPT-48192 Smoking Cessation counseling 11:15:58 SURGICAL INSTRUMENT REPAIR SPECIALIST CPT-G0439 Subsequent Annual Wellness Exam 09:30:58 SURGICAL INSTRUMENT REPAIR SPECIALIST CPT-58618 TSH - LAB USE ONLY 08:50:26 SURGICAL INSTRUMENT REPAIR SPECIALIST CPT-66201 CBC - LAB USE ONLY 08:50:26 SURGICAL INSTRUMENT REPAIR SPECIALIST CPT-52996 Venipuncture Draw Fee 08:50:26 SURGICAL INSTRUMENT REPAIR SPECIALIST CPT-68816 Abx/Therapy Injection 17:34:30 SURGICAL INSTRUMENT REPAIR SPECIALIST CPT-19349 Nexplanon Removal with Reinsertion 14:09:32 CDT CPT-J7307 Nexplanon (Implant) 14:09:32 CDT CPT-OV Office Visit 14:09:32 CDT CPT-24540 UA w micro - LAB USE ONLY 16:21:13 CDT CPT-82821 Wet Mount - LAB USE ONLY 16:21:13 CDT CPT-70960 First Vx - Ix admin for Medicare patients 14:37:47 CDT CPT-30763 Fluzone Preservative Free Intramuscular Suspension 14:37 :47 CDT CPT-16189 Abx/Therapy Injection 13:54:22 CDT CPT-54541 Abx/Therapy Injection 08:47:09 CDT CPT-73084 Abx/Therapy Injection 13:29:56 CDT CPT-98853 Abx/Therapy Injection 08:36:16 CDT CPT-54224 Wet Mount - LAB USE ONLY 17:44:58 CDT CPT-40654 UA w micro - LAB USE ONLY 17:44:58 CDT CPT-03111 CMP - LAB USE ONLY 17:44:58 CDT CPT-04674 Venipuncture Draw Fee 17:44:58 CDT CPT-90300 Cervical Min 4V - XRAY USE ONLY 09:01:40 CDT CPT-96513 Chest 2V Frontal and Lat - XRAY USE ONLY 11:06:31 CDT CPT-42462 EKG Trac and Interp - XRAY USE ONLY 11:31:43 CDT 08/26 CPT-J3420 Vitamin B12 1000mcg (Cyanocobalamin) 08:10:26 SURGICAL INSTRUMENT REPAIR SPECIALIST 04/12 CPT-08002 Abx/Therapy Injection 08:10:26 SURGICAL INSTRUMENT REPAIR SPECIALIST CPT-G0438 Initial Annual Wellness Exam 19:01:01 SURGICAL INSTRUMENT REPAIR SPECIALIST CPT-J3420 Vitamin B12 1000mcg (Cyanocobalamin) 16:57:46 CDT 08/14 CPT-84111 Recombivax HB Injection Suspension 5 MCG/0.5ML 08:37:50 SURGICAL INSTRUMENT REPAIR SPECIALIST CPT-57886 Immunization Single Admin 08:37:50 SURGICAL INSTRUMENT REPAIR SPECIALIST CPT-J3420 Vitamin B12 1000mcg (Cyanocobalamin) 08:32:16 SURGICAL INSTRUMENT REPAIR SPECIALIST 03/11 CPT-02299 Abx/Therapy Injection 08:32:16 SURGICAL INSTRUMENT REPAIR SPECIALIST CPT-76900 Chest 2V Frontal and Lat 11:46:38 SURGICAL INSTRUMENT REPAIR SPECIALIST CPT-57442 Venipuncture Draw Fee 09:12:45 SURGICAL INSTRUMENT REPAIR SPECIALIST CPT-J3420 Vitamin B12 1000mcg (Cyanocobalamin) 08:50:15 SURGICAL INSTRUMENT REPAIR SPECIALIST 02/08 CPT-25244 Abx/Therapy Injection 08:50:15 SURGICAL INSTRUMENT REPAIR SPECIALIST CPT-Cryo Cryotherapy 10:19:35 SURGICAL INSTRUMENT REPAIR SPECIALIST CPT-000 Give Appropriate Flu Vaccine 09:22:16 CDT CPT-J3420 Vitamin B12 1000mcg (Cyanocobalamin) 19:08:57 CDT 01/11 CPT-38833 Abx/Therapy Injection 19:08:57 CDT CPT-J3420 Vitamin B12 1000mcg (Cyanocobalamin) 08:19:08 CDT 12/11 CPT-59253 Abx/Therapy Injection 08:19:08 CDT CPT-J3420 Vitamin B12 1000mcg (Cyanocobalamin) 14:48:00 CDT 11/09 CPT-63749 Abx/Therapy Injection 14:47:59 CDT CPT-J3420 Vitamin B12 1000mcg (Cyanocobalamin) 08:34:04 CDT 10/09 CPT-53502 Abx/Therapy Injection 08:34:04 CDT CPT-J3420 Vitamin B12 1000mcg (Cyanocobalamin) 09:18:52 CDT 09/11 CPT-03180 Abx/Therapy Injection 09:18:52 CDT CPT-J3420 Vitamin B12 1000mcg (Cyanocobalamin) 08:35:44 CDT 09/04 CPT-51057 Abx/Therapy Injection 08:35:44 CDT CPT-43708 Immunization Single Admin 11:07:16 CDT CPT-20412 Hepatitis B adult IM 11:07:16 CDT CPT-J3420 Vitamin B12 1000mcg (Cyanocobalamin) 11:00:49 CDT 08/28 CPT-J1040 Depo Medrol 80 mg (Methyl Prednisolone Acetate) 11:00: 49 CDT CPT-86640 Abx/Therapy Injection 11:00:49 CDT CPT-J1040 Depo Medrol 80 mg (Methyl Prednisolone Acetate) 09:16: 23 CDT CPT-J3420 Vitamin B12 1000mcg (Cyanocobalamin) 08:27:05 CDT 08/20 CPT-86317 Abx/Therapy Injection 08:27:05 CDT CPT-74475 Recombivax HB Injection Suspension 5 MCG/0.5ML 10:00:41 CDT CPT-49589 Administration single or combination vaccine inc oral 10 :00:41 CDT CPT-54441 Sono transvag pelvis non OB uterus ovaries cervix 16:36: 57 CDT CPT-19828 LS spine comp w obliq 09:50:55 SURGICAL INSTRUMENT REPAIR SPECIALIST CPT-80948 Abd compl w upright 09:50:55 SURGICAL INSTRUMENT REPAIR SPECIALIST CPT-J1100 Decadron 4mg (Dexamethasone) 15:51:24 SURGICAL INSTRUMENT REPAIR SPECIALIST CPT-J1030 Depo Medrol 40 mg (Methyl Prednisolone Acetate) 15:51: 24 SURGICAL INSTRUMENT REPAIR SPECIALIST CPT-38324 Abx/Therapy Injection 15:51:24 SURGICAL INSTRUMENT REPAIR SPECIALIST CPT-J1100 Decadron 4mg (Dexamethasone) 15:26:33 SURGICAL INSTRUMENT REPAIR SPECIALIST CPT-J1030 Depo Medrol 40 mg (Methyl Prednisolone Acetate) 15:26: 33 SURGICAL INSTRUMENT REPAIR SPECIALIST CPT-50147 Sono retroperitoneal complete kidneys and bladder 17:15: 30 CDT CPT-11587 Abd compl w upright 16:09:25 CDT CPT-J1100 Decadron 8mg (Dexamethasone) 17:07:57 CDT CPT-88140 Abx/Therapy Injection 17:07:57 CDT CPT-J1100 Decadron 8mg (Dexamethasone) 16:55:24 CDT CPT-57131 Chest 2V Frontal and Lat 16:32:44 CDT
--- OUTSIDE RECORDS SUMMARY | 2016-11-04 13:01 | XMS REPORT | Clinical Summary ---
Author Author Admin, BRIELLEE Organization [employer] Address Unknown Phone Unavailable Allergies, Adverse Reactions, [...] sites Morbid obesity 278.01 Active Juliet Kimbrough SPLICER OPERATOR Morbid obesity 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 Active [...] breath Nocturnal hypoxia 799.02 Active Fabiola Johnson SPLICER OPERATOR Hypoxemia Neck pain 723.1 Resolved Vishal [...] fibula Vaginal discharge 623.5 Active Luigi Martínez SPLICER OPERATOR Leukorrhea, not specified as infective DYSURIA [...] of sutures ICD-V58.32 Inactive Vishal Hui MD Personality change ICD-301.9 [...] Gait unsteady ICD-781.2 Inactive Albert Caldera MD Neck pain ICD-723.1 Inactive Vishal Hui [...] 6 hours as needed for cough GUAIFENESIN-CODEINE 17731716970 Active Ahmet Carbajal MD Active PREDNISONE 20 MG TABS 2 daily for 5 days then 1 daily for 5 days PREDNISONE 54900017193 Active Ahmet Carbajal MD Active LAMICTAL 100 MG ORAL TABS 1 tab q.d LAMOTRIGINE 47522514000 Active Ahmet Carbajal MD Active BENADRYL 25 MG CAP 4 po at bedtime for insomnia DIPHENHYDRAMINE HCL 44824022280 No Longer Active Ahmet Carbajal MD Active ADVAIR DISKUS 250-50 MCG/DOSE INH AEPB 1 puff twice a day for asthma FLUTICASONE-SALMETEROL 40907845874 No Longer Active Ahmet Carbajal MD Active KLONOPIN 1 MG ORAL TABS 1 tab po TID CLONAZEPAM 38665797766 No Longer Active Ahmet Carbajal MD Active ABILIFY MAINTENA 400 MG IM SUSR 400mg injection every 26 days ARIPIPRAZOLE 69332232119 No Longer Active Ahmet Carbajal MD Active HALOPERIDOL 10 MG ORAL TABS 1 tab q.d HALOPERIDOL 47123055465 Active Ahmet Carbajal MD Active ASPIRIN 325 MG ORAL TABS 1 tab q.d ASPIRIN 80119348438 Active Ahmet Carbajal MD Active HYDROCODONE-ACETAMINOPHEN 5-325 MG ORAL TABS 1 tab two times a day HYDROCODONE-ACETAMINOPHEN 43512650928 Active Ahmet Carbajal MD Active TRAMADOL HCL 50 MG TABS 1/2-1 tab TID PRN TRAMADOL HCL 54537395004 No Longer Active Ahmet Carbajal MD Active BACTRIM DS 800-160 MG TABS 1 twice a day SULFAMETHOXAZOLE- TRIMETHOPRIM 96418290267 No Longer Active Ahmet Carbajal MD Active PROAIR HFA 108 (90 BASE) MCG/ACT AERS 2 puffs four times a day as needed 2015 ALBUTEROL SULFATE 69581322699 Active Ahmet Carbajal MD Active EQ NICOTINE 21 MG/24HR TRANS PT24 Apply daily to stop smoking NICOTINE 18859437801 Active Ahmet Carbajal MD Active MONISTAT 7 COMBO PACK WOODROW 100 & 2 MG-% (9GM) VAG KIT 1 applicatorful per vagina q pm x 7 MICONAZOLE NITRATE 47118413884 No Longer Active Ahmet Carbajal MD Active FLAGYL 500 MG TAB 1 tablet by mouth bid METRONIDAZOLE 23804818304 No Longer Active Ahmet Carbajal MD Active OXYCODONE HCL ER 10 MG ORAL T12A 1/2 tab by mouth every 4 hours prn OXYCODONE HCL 22482529528 No Longer Active Ahmet Carbajal MD Active METHYLPREDNISOLONE 4 MG ORAL TABS po daily METHYLPREDNISOLONE 98848463880 No Longer Active Ahmet Carbajal MD Active LEVOFLOXACIN 500 MG ORAL TABS po daily LEVOFLOXACIN 92991780907 No Longer Active Ahmet Carbajal MD Active VIIBRYD 10 MG ORAL TABS Take 1 tablet once a day VILAZODONE HCL 33598087849 No Longer Active Ahmet Carbajal MD Active TOPAMAX 50 MG ORAL TABS 1 tab twice daily TOPIRAMATE 72476018051 No Longer Active Ahmet Carbajal MD Active DICLOFENAC SODIUM 50 MG TBEC 1 tablet by mouth four times daily PRN Pain 2015 DICLOFENAC SODIUM 24410969438 No Longer Active Ahmet Carbajal MD Active ADZENYS XR-ODT 6.3 MG ORAL TBED 1 tab po daily for ADHD AMPHETAMINE 24086185547 No Longer Active Ahmet Carbajal MD Active CHANTIX 1 MG TABS 1 twice a day to help quit smoking VARENICLINE TARTRATE 15818198227 No Longer Active Dipika Burgos MD Active CHANTIX STARTING MONTH EARNEST 0.5 MG X 11 & 1 MG X 42 TABS take as directed 2015 VARENICLINE TARTRATE 69667273654 No Longer Active Dipika Burgos MD Active TESSALON PERLES 100 MG CAP 1 to 2 tablets by mouth 3 times daily as needed for cough BENZONATATE 27375588277 No Longer Active Luigi Martínez APRN Active IMITREX 50 MG ORAL TABS 0.5 po x 1 PRN Headache. May repeat dose x 1 in 2 hours if needed SUMATRIPTAN SUCCINATE 11217442081 Active TAMARA Casey Active HYDROCODONE-ACETAMINOPHEN 5-325 MG TABS 1 to 2 four times a day as needed for pain use until can be seen by specialist HYDROCODONE- ACETAMINOPHEN 34219809443 No Longer Active Vishal Hui MD Active PROAIR HFA 108 (90 BASE) MCG/ACT AERS 2 puffs four times a day as needed 2015 ALBUTEROL SULFATE 12592426732 No Longer Active Vishal Hui MD Active PREDNISONE 20 MG TABS 2 daily for 5 days then 1 daily for 5 days PREDNISONE 12925647303 No Longer Active Vishal Hui MD Active ZITHROMAX Z-EARNEST 250 MG TABS 2 today and then 1 daily for 4 days AZITHROMYCIN 07136864346 No Longer Active Vishal Hui MD Active DICLOFENAC POTASSIUM TABS Take 1 tablet twice a day (pt. is not sure of the dose.) DICLOFENAC POTASSIUM TABS 85064985013 No Longer Active Vishal Hui MD Active VERAPAMIL HCL ER 120 MG ORAL CR-TABS Take 1 tablet by mouth twice a day. VERAPAMIL HCL 26803257978 Active Vishal Hui MD Active FLAGYL 500 MG TAB 1 tablet by mouth bid METRONIDAZOLE 88552802942 No Longer Active Vishal Hui MD Active FLUTICASONE PROPIONATE 50 MCG/ACT SUSP 2 sprays each nostril daily before bed. FLUTICASONE PROPIONATE 37927268916 Active Fabiola Johnson APRN Active VALIUM 5 MG TAB Take 1-2 tablets daily DIAZEPAM 81443725194 No Longer Active Fabiola Johnson APRN Active METOPROLOL TARTRATE 25 MG ORAL TABS 1/2 tablet twice daily for heart rate and blood pressure METOPROLOL TARTRATE 05727072619 No Longer Active Fabiola Johnson APRN Active MIRALAX ORAL POWD 17GMS DAILY IN WATER POLYETHYLENE GLYCOL 3350 64787769306 Active Vishal Hui MD Active MIRALAX PACK 1 po qd PRN Constipation POLYETHYLENE GLYCOL 3350 42881948116 No Longer Active Ahmet Carbajal MD Active MINIPRESS 2 MG CAPS 4 cap po at night PRAZOSIN HCL 70966201187 No Longer Active Ahmet Carbajal MD Active PIROXICAM 20 MG CAPS 1 cap po qd PRN Pain PIROXICAM 11296304731 No Longer Active Ahmet Carbajal MD Active TRAMADOL HCL 50 MG TABS 1-2 po TID PRN Pain TRAMADOL HCL 45662583520 No Longer Active Ahmet Carbajal MD Active METOPROLOL TARTRATE 50 MG TAB 1 po bid METOPROLOL TARTRATE 22880808177 No Longer Active Ahmet Carbajal MD Active ABILIFY 15 MG ORAL TABS 1 tab daily ARIPIPRAZOLE 91242550077 No Longer Active Ahmet aCrbajal MD Active PROZAC 20 MG ORAL CAPS 1 tab daily FLUOXETINE HCL 48759289814 No Longer Active Ahmet Carbajal MD Active AMBIEN 5 MG ORAL TABS 1 tab at bedtime ZOLPIDEM TARTRATE 68370055337 No Longer Active Ahmet Carbajal MD Active PREDNISONE 20 MG TAB 2 tabs daily for 4 days, 1 tab daily for 4 days, 1/2 tab daily for 4 days PREDNISONE 66289742367 No Longer Active Ahmet Carbajal MD Active KEFLEX 500 MG CAP 1 po TID x 10 days CEPHALEXIN 76412472958 No Longer Active Vishal Hui MD Active SAPHRIS 5 MG SUBL 1 po bid ASENAPINE MALEATE 73149012297 No Longer Active Jillina Fralebron SPLICER OPERATOR Active LATUDA 80 MG TABS Take one by mouth daily LURASIDONE HCL 70158457671 No Longer Active Jillina Frazell SPLICER OPERATOR Active AMLODIPINE BESYLATE 5 MG TABS 1 tablet by mouth daily AMLODIPINE BESYLATE 72204833943 No Longer Active Jillina Fradwightl SPLICER OPERATOR Active AMITRIPTYLINE HCL 100 MG TAB one at hs AMITRIPTYLINE HCL 00742028770 No Longer Active Vishal Hui MD Active TRAZODONE HCL 100 MG TAB take 1 at bedtime TRAZODONE HCL 98754638097 No Longer Active Vishal Hui MD Active VYVANSE 40 MG CAPS 1 daily, LISDEXAMFETAMINE DIMESYLATE 74209951670 No Longer Active Vishal Hui MD Active IBUPROFEN 600 MG TAB 1 po TID PRN IBUPROFEN 80737317911 No Longer Active Vishal Hui MD Active PROZAC 20 MG CAP Take one by mouth daily FLUOXETINE HCL 78846660081 No Longer Active Vishal Hui MD Active ZOFRAN 4 MG TABS 1 po q6hr PRN Nausea ONDANSETRON HCL Active Vishal Hui MD Active BACTRIM DS 800-160 MG TABS 1 pill by mouth twice daily SULFAMETHOXAZOLE-TRIMETHOPRIM 13468450559 No Longer Active Sahara Rodriguez MD PhD Active DIFLUCAN 150 MG TAB 1 tablet by mouth daily FLUCONAZOLE 63410293896 No Longer Active Vishal Hui MD Active TIZANIDINE HCL 4 MG TABS 1 po q6hr PRN Muscle Spasm/Back Pain TIZANIDINE HCL 09896626362 Active Vishal Hui MD Active CLINDAMYCIN HCL 150 MG CAPS 1 four times a day CLINDAMYCIN HCL 38513053657 No Longer Active Neeraj Collins MD Active KEFLEX 500 MG ORAL CAPS 1 cap QID by mouth CEPHALEXIN 21244605217 No Longer Active Neeraj Collins MD Active DIFLUCAN 150 MG TABS 1 pill every other day x 2 doses FLUCONAZOLE 76364587855 No Longer Active Sahara Rodriguez MD PhD Active MELATONIN 3 MG CAPS 2 po q hs MELATONIN 30453919659 No Longer Active Sahara Rodriguez MD PhD Active MULTIVITAMINS CAPS Take one by mouth daily MULTIPLE VITAMIN 08786617484 No Longer Active Sahara Rodriguez MD PhD Active BACTRIM DS 800-160 MG TAB 1 tab by mouth twice daily TRIMETHOPRIM-SULFAMETHOXAZOLE 58127434575 No Longer Active Sahara Rodriguez MD PhD Active [facility] PROBIOTIC ORAL CHEW 2 daily po PROBIOTIC PRODUCT 81766674755 No Longer Active Sahara Rodriguez MD PhD Active BACTRIM DS 800-160 MG TABS 1 po BID x 7 days SULFAMETHOXAZOLE-TRIMETHOPRIM 87597083914 No Longer Active Vishal Hui MD Active CHANTIX STARTING MONTH EARNEST 0.5 MG X 11 & 1 MG X 42 TABS 0.5mg daily for 3 days , then 0.5mg BID for 4 days, then 1mg BID VARENICLINE TARTRATE 35912331267 No Longer Active TAMARA Gray Active VERAPAMIL HCL CR 120 MG TAB CR 1 po bid VERAPAMIL HCL 00376011943 No Longer Active Vishal Hui MD Active METOPROLOL SUCCINATE 50 MG TB24 1 tablet by mouth daily METOPROLOL SUCCINATE 63961565116 No Longer Active Vishal Hui MD Active SAPHRIS 10 MG SUBL 1 tab po bid ASENAPINE MALEATE 06105097428 No Longer Active Vishal Hui MD Active LISINOPRIL 20 MG TABS 1 tab po qd LISINOPRIL 09491311299 No Longer Active Vishal Hui MD Active LATUDA 20 MG TABS Take one by mouth daily LURASIDONE HCL 82899799686 No Longer Active Vishal Hui MD Active TRAZODONE HCL 50 MG TABS 1/2 tab po qd prn for anxiety TRAZODONE HCL 54756428403 No Longer Active Vishal Hui MD Active OMEPRAZOLE 20 MG TBEC 1 po q a.m. 30min prior to first food intake OMEPRAZOLE 71174811146 Active Vishal Hui MD Active RANITIDINE HCL 150 MG CAPS 1 twice a day RANITIDINE HCL 43347888864 Active Jioral Martínez APRN Active LINZESS 290 MCG CAPS Take one by mouth daily LINACLOTIDE 72023381618 No Longer Active Vishal Hui MD Active SAPHRIS 5 MG SUBL 1 tab po qd ASENAPINE MALEATE 34191846532 No Longer Active Vishal Hiu MD Active ZALEPLON 10 MG CAPS 1 cap po every other night ZALEPLON 79896401836 No Longer Active Vishal Hui MD Active LYRICA 50 MG CAPS 1 tab po TID PREGABALIN 67252559052 No Longer Active Vishal Hui MD Active LORATADINE 10 MG TABS 1 tab po qd LORATADINE 78012223760 No Longer Active Vishal Hui MD Active VERAPAMIL HCL ER 180 MG CR-TABS 1 tab po bid VERAPAMIL HCL 64225547006 No Longer Active Vishal Hui MD Active MIRALAX POWD 1 capfull once daily POLYETHYLENE GLYCOL 3350 25693400761 No Longer Active Vishal Hui MD Active PREDNISONE 20 MG TABS 1 tab po qd PREDNISONE 73886087139 No Longer Active Renzo Thornton DO Active LEVOFLOXACIN 500 MG TABS 1 tab po qd LEVOFLOXACIN 82234757856 No Longer Active Renzo Thornton DO Active BUSPIRONE HCL 15 MG TABS 1 tab po TID BUSPIRONE HCL 03647999984 No Longer Active Renzo Thornton DO Active BENZTROPINE MESYLATE 1 MG TABS 1 tab po qd BENZTROPINE MESYLATE 17678570029 No Longer Active Renzo Thornton DO Active ATENOLOL 25 MG TABS 1 tab po qd ATENOLOL 16120948798 No Longer Active Renzo Thornton DO Active ESCITALOPRAM OXALATE 20 MG TABS 1 tab po qd ESCITALOPRAM OXALATE 72081208910 No Longer Active Renzo Thornton DO Active ADVAIR DISKUS 250-50 MCG/DOSE AEPB 1 puff BID FLUTICASONE-SALMETEROL 98288338558 No Longer Active Renzo Thornton DO Active PREDNISONE 20 MG TAB 2 tabs daily for 3 days, 1 tab daily for 3 days, 1/2 tab daily for 2 days PREDNISONE 97885259847 No Longer Active Vishal Hui MD Active CEFDINIR 300 MG CAPS by mouth twice a day CEFDINIR 16827358748 No Longer Active Vishal Hui MD Active LANSOPRAZOLE 30 MG CPDR 1 cap po qd LANSOPRAZOLE 91200785534 No Longer Active Vishal Hui MD Active BACLOFEN 20 MG TABS 1 tab po tid BACLOFEN 14256174512 No Longer Active Vishal Hui MD Active ADVAIR DISKUS 250-50 MCG/DOSE AEPB 1 puff BID ADVAIR DISKUS 250-50 MCG/DOSE AEPB FLUTICASONE-SALMETEROL Inactive ESCITALOPRAM OXALATE 20 MG TABS 1 tab po qd ESCITALOPRAM OXALATE 20 MG TABS 473474 ESCITALOPRAM OXALATE Inactive ATENOLOL 25 MG TABS 1 tab po qd ATENOLOL 25 MG TABS 091304 ATENOLOL Inactive BENZTROPINE MESYLATE 1 MG TABS 1 tab po qd BENZTROPINE MESYLATE 1 MG TABS 205965 BENZTROPINE MESYLATE Inactive BUSPIRONE HCL 15 MG TABS 1 tab po TID BUSPIRONE HCL 15 MG TABS 391305 BUSPIRONE HCL Inactive LEVOFLOXACIN 500 MG TABS 1 tab po qd LEVOFLOXACIN 500 MG TABS 212766 LEVOFLOXACIN Inactive PREDNISONE 20 MG TABS 1 tab po qd PREDNISONE 20 MG TABS 025038 PREDNISONE Inactive MIRALAX POWD 1 capfull once daily MIRALAX POWD 601086 POLYETHYLENE GLYCOL 3350 Inactive VERAPAMIL HCL ER 180 MG CR-TABS 1 tab po bid VERAPAMIL HCL ER 180 MG CR-TABS VERAPAMIL HCL Inactive LORATADINE 10 MG TABS 1 tab po qd LORATADINE 10 MG TABS 423355 LORATADINE Inactive LYRICA 50 MG CAPS 1 tab po TID LYRICA 50 MG CAPS PREGABALIN Inactive ZALEPLON 10 MG CAPS 1 cap po every other night ZALEPLON 10 MG CAPS 660853 ZALEPLON Inactive SAPHRIS 5 MG SUBL 1 tab po qd SAPHRIS 5 MG SUBL ASENAPINE MALEATE Inactive TRAZODONE HCL 50 MG TABS 1/2 tab po qd prn for anxiety TRAZODONE HCL 50 MG TABS 336036 TRAZODONE HCL Inactive LATUDA 20 MG TABS Take one by mouth daily LATUDA 20 MG TABS LURASIDONE HCL Inactive LISINOPRIL 20 MG TABS 1 tab po qd LISINOPRIL 20 MG TABS 476632 LISINOPRIL Inactive SAPHRIS 10 MG SUBL 1 [...] twice daily BACTRIM DS 800-160 MG TAB 148221 TRIMETHOPRIM-SULFAMETHOXAZOLE Inactive MULTIVITAMINS CAPS Take one by mouth daily MULTIVITAMINS CAPS MULTIPLE VITAMIN Inactive MELATONIN 3 MG CAPS 2 po q hs MELATONIN 3 MG CAPS 671309 MELATONIN Inactive KEFLEX 500 MG ORAL CAPS 1 cap QID by mouth KEFLEX 500 MG ORAL CAPS 606304 CEPHALEXIN Inactive CLINDAMYCIN HCL 150 MG CAPS 1 four times a day CLINDAMYCIN HCL 150 MG CAPS 219908 CLINDAMYCIN HCL Inactive DIFLUCAN 150 MG TAB 1 tablet by mouth daily DIFLUCAN 150 MG TAB 790310 FLUCONAZOLE Inactive PROZAC 20 MG CAP Take one by mouth daily PROZAC 20 MG CAP 949803 FLUOXETINE HCL Inactive IBUPROFEN 600 MG TAB 1 po TID PRN IBUPROFEN 600 MG TAB 905147 IBUPROFEN Inactive VYVANSE 40 MG CAPS 1 daily, VYVANSE 40 MG CAPS LISDEXAMFETAMINE DIMESYLATE Inactive TRAZODONE HCL 100 MG TAB take 1 at bedtime TRAZODONE HCL 100 MG TAB 865028 TRAZODONE HCL Inactive AMITRIPTYLINE HCL 100 MG TAB one at hs AMITRIPTYLINE HCL 100 MG TAB 178364 AMITRIPTYLINE HCL Inactive AMLODIPINE BESYLATE 5 MG TABS 1 tablet by mouth daily AMLODIPINE BESYLATE 5 MG TABS 449908 AMLODIPINE BESYLATE Inactive LATUDA 80 MG TABS Take one by mouth daily LATUDA 80 MG TABS LURASIDONE HCL Inactive SAPHRIS 5 MG SUBL 1 po bid SAPHRIS 5 MG SUBL ASENAPINE MALEATE Inactive PREDNISONE 20 MG TAB 2 tabs daily for 4 days, 1 tab daily for 4 days, 1/2 tab daily for 4 days PREDNISONE 20 MG TAB 602192 PREDNISONE Inactive AMBIEN 5 MG ORAL TABS 1 tab at bedtime AMBIEN 5 MG ORAL TABS 905410 ZOLPIDEM TARTRATE Inactive PROZAC 20 MG ORAL CAPS 1 tab daily PROZAC 20 MG ORAL CAPS 674584 FLUOXETINE HCL Inactive ABILIFY 15 MG ORAL TABS 1 tab daily ABILIFY 15 MG ORAL TABS 488383 ARIPIPRAZOLE Inactive METOPROLOL TARTRATE 50 MG TAB 1 po bid METOPROLOL TARTRATE 50 MG TAB 262445 METOPROLOL TARTRATE Inactive TRAMADOL HCL 50 MG TABS 1-2 po TID PRN Pain TRAMADOL HCL 50 MG TABS 637688 TRAMADOL HCL Inactive PIROXICAM 20 MG CAPS 1 cap po qd PRN Pain PIROXICAM 20 MG CAPS 996429 PIROXICAM Inactive MINIPRESS 2 MG CAPS 4 cap po at night MINIPRESS 2 MG CAPS 276250 PRAZOSIN HCL Inactive MIRALAX PACK 1 po qd PRN Constipation MIRALAX PACK 837646 POLYETHYLENE GLYCOL 3350 Inactive METOPROLOL TARTRATE 25 MG ORAL TABS 1/2 tablet twice daily for heart rate and blood pressure METOPROLOL TARTRATE 25 MG ORAL TABS 281232 METOPROLOL TARTRATE Inactive VALIUM 5 MG TAB Take 1-2 tablets daily VALIUM 5 MG TAB 572834 DIAZEPAM Inactive FLAGYL 500 MG TAB 1 tablet by mouth bid FLAGYL 500 MG TAB 263505 METRONIDAZOLE Inactive DICLOFENAC POTASSIUM TABS Take 1 tablet twice a day (pt. is not sure of the dose.) DICLOFENAC POTASSIUM TABS DICLOFENAC POTASSIUM TABS Inactive ZITHROMAX Z-EARNEST 250 MG TABS 2 today and then 1 daily for 4 days ZITHROMAX Z-EARNEST 250 MG TABS 0460039 AZITHROMYCIN Inactive PREDNISONE 20 MG TABS 2 daily for 5 days then 1 daily for 5 days PREDNISONE 20 MG TABS 492883 PREDNISONE Inactive PROAIR HFA 108 (90 BASE) MCG/ACT AERS 2 puffs four times a day as needed 2015 PROAIR HFA 108 (90 BASE) MCG/ACT AERS ALBUTEROL SULFATE Inactive HYDROCODONE-ACETAMINOPHEN 5-325 MG TABS 1 to 2 four times a day as needed for pain use until can be seen by specialist HYDROCODONE- ACETAMINOPHEN 5-325 MG TABS 127224 HYDROCODONE-ACETAMINOPHEN Inactive TESSALON PERLES 100 MG CAP 1 to 2 tablets by mouth 3 times daily as needed for cough TESSALON PERLES 100 MG CAP 769550 BENZONATATE Inactive CHANTIX STARTING MONTH EARNEST 0.5 [...] PRN Pain 2015 DICLOFENAC SODIUM 50 MG BANNER 953511 DICLOFENAC SODIUM Inactive TOPAMAX 50 MG ORAL TABS 1 tab twice daily TOPAMAX 50 MG ORAL TABS 432609 TOPIRAMATE Inactive VIIBRYD 10 MG ORAL TABS Take 1 tablet once a day VIIBRYD 10 MG ORAL TABS VILAZODONE HCL Inactive LEVOFLOXACIN 500 MG ORAL TABS po daily LEVOFLOXACIN 500 MG ORAL TABS 803458 LEVOFLOXACIN Inactive METHYLPREDNISOLONE 4 MG ORAL TABS po daily METHYLPREDNISOLONE 4 MG ORAL TABS 017146 METHYLPREDNISOLONE Inactive OXYCODONE HCL ER 10 MG ORAL T12A 1/2 tab by mouth every 4 hours prn OXYCODONE HCL ER 10 MG ORAL T12A OXYCODONE HCL Inactive FLAGYL 500 MG TAB 1 tablet by mouth bid FLAGYL 500 MG TAB 086729 METRONIDAZOLE Inactive MONISTAT 7 COMBO PACK WOODROW 100 & 2 MG-% (9GM) VAG KIT 1 applicatorful per vagina q pm x 7 MONISTAT 7 COMBO PACK WOODROW 100 & 2 MG-% (9GM) VAG KIT MICONAZOLE NITRATE Inactive BACTRIM DS 800-160 MG TABS 1 twice a day BACTRIM DS 800-160 MG TABS 562741 SULFAMETHOXAZOLE-TRIMETHOPRIM Inactive TRAMADOL HCL 50 MG TABS 1/2-1 tab TID PRN TRAMADOL HCL 50 MG TABS 986349 TRAMADOL HCL Inactive ABILIFY MAINTENA 400 MG IM SUSR 400mg injection every 26 days ABILIFY MAINTENA 400 MG IM SUSR ARIPIPRAZOLE Inactive KLONOPIN 1 MG ORAL TABS 1 tab po TID KLONOPIN 1 MG ORAL TABS 330643 CLONAZEPAM Inactive ADVAIR DISKUS 250-50 MCG/DOSE INH AEPB 1 puff twice a day for asthma ADVAIR DISKUS 250-50 MCG/DOSE INH AEPB FLUTICASONE- SALMETEROL Inactive BENADRYL 25 MG CAP 4 po at bedtime for insomnia BENADRYL 25 MG CAP DIPHENHYDRAMINE HCL Inactive CEFDINIR 300 MG CAPS by mouth twice a day CEFDINIR 300 MG CAPS 863518 CEFDINIR Inactive PREDNISONE 20 MG TAB 2 tabs daily for 3 days, 1 tab daily for 3 days, 1/2 tab daily for 2 days PREDNISONE 20 MG TAB 230979 PREDNISONE Inactive BACTRIM DS 800-160 MG TABS 1 po BID x 7 days BACTRIM DS 800-160 MG TABS 19820521 SULFAMETHOXAZOLE-TRIMETHOPRIM Inactive DIFLUCAN 150 MG TABS 1 pill every other day x 2 doses DIFLUCAN 150 MG TABS 999360 FLUCONAZOLE Inactive BACTRIM DS 800-160 MG TABS 1 pill by mouth twice daily BACTRIM DS 800-160 MG TABS 19820521 SULFAMETHOXAZOLE-TRIMETHOPRIM Inactive KEFLEX 500 MG CAP 1 po TID x 10 days KEFLEX 500 MG CAP 936129 CEPHALEXIN Inactive Advance Directives Directive Description Start [...] pressure, diastolic - 8462-4 74 mm[Hg] BP mcanlly blood pressure, systolic - 8480-6 107 mm[Hg] [...] CBC - Hematology mean corpuscular hemoglobin, RBC 31.5 pg 27.0-31.2 mean corpuscular hemoglobin concentration, RBC 33.6 G/DL % 31.8- 35.4 red blood cell distribution width 14.4 % 11.6-14.8 platelet count 390 10^3/MM^3 10*3/mm3 600-673 5442/01/11 mean corpuscular volume, RBC 94 fL 80-97 hematocrit, blood 41.8 % 36.0-46.0 hemoglobin, blood 14.0 g/dL 12.0-16.0 erythrocyte (RBC) count 4.46 10^6/MM^3 10*6/mm3 4.04-5.48 leukocyte count, blood 13.8 10^3/MM^3 10*3/mm3 4.6-10.2 Lab Report: CBC, Thyroid Stimulating Hormone (L) [...] 369 10^3/MM^3 10*3/mm3 142-424 Lab Report: Chlamydia/GC [id number] - Lab chlamydia DNA probe NOT DETECTED NOT DETECTED Lab Report: Chlamydia/GC [id number] - Microbiology Neisseria gonorrhoeae DNA probe NOT DETECTED NOT DETECTED Lab Report: Comp. Metabolic Panel - Chemistry sodium, serum 139 mmol/L 376-388 2915/01/11 carbon dioxide, venous blood 26.6 mmol/L 21.0-32.0 potassium, serum 4.1 mmol/L 3.5-5.2 chloride, serum 100 mmol/L 98-107 blood glucose 86 mg/dL 65-110 urea nitrogen, blood 16 mg/dL 7-18 creatinine, serum 1.00 mg/dL 0.55-1.30 alanine aminotransferase (SGPT), serum 48 U/L 12-78 aspartate aminotransferase (SGOT), serum 17 U/L 15-37 calcium, serum 9.1 mg/dL 8.5-10.1 bilirubin, serum, total 0.40 mg/dL 0.00-1.00 carbon dioxide, venous blood 27.6 mmol/L 21.0-32.0 potassium, serum 4.0 mmol/L 3.5-5.2 chloride, serum 105 mmol/L 98-107 blood glucose 95 mg/dL 65-110 urea nitrogen, blood 8 mg/dL 7-18 sodium, serum 140 mmol/L 440-807 7487/08/08 creatinine, serum 0.88 mg/dL 0.55-1.30 alanine aminotransferase (SGPT), serum 54 U/L 12-78 aspartate aminotransferase (SGOT), serum 29 U/L 15-37 calcium, serum 9.7 mg/dL 8.5-10.1 bilirubin, serum, total 0.30 mg/dL 0.00-1.00 carbon dioxide, venous blood 33.7 mmol/L 21.0-32.0 potassium, serum 5.0 mmol/L 3.5-5.2 chloride, serum 103 mmol/L 98-107 blood glucose 80 mg/dL 65-110 urea nitrogen, blood 13 mg/dL 7-18 sodium, serum 142 mmol/L 500-496 9994/06/08 creatinine, serum 0.75 mg/dL 0.55-1.30 alanine aminotransferase [...] Negative Negative glucose, urine, semiquantitative Negative Negative urine color [...] mg/dL Encounters Code Encounter Date Provider Facility CPT-93338 Level 3 Est. Patient 10:40:11 PLATE WORKER Ahmet Carbajal MD [facility] CPT-28299 Level 3 Est. Patient 15:07:06 PLATE WORKER Neeraj Collins MD [facility] CPT-91266 Level 4 Est. Patient 14:45:00 PLATE WORKER Ahmet Carbajal MD [facility] CPT-13641 Level 3 Est. Patient 13:59:59 CDT Luigi Martínez [facility] CPT-11221 Level 3 Est. Patient 18:18:53 CDT Neeraj Collins MD [facility] CPT-56831 Level 3 Est. Patient 15:50:44 CDT Vishal Hui MD [facility] CPT-30165 Level 3 Est. Patient 11:36:17 CDT Ahmet Carbajal MD [facility] CPT-86695 Level 3 Est. Patient 13:29:16 CDT Vishal Hui MD [facility] CPT-16278 Level 3 Est. Patient 14:27:52 CDT Neeraj Collins MD [facility] CPT-80050 Level 3 Est. Patient 08:56:03 CDT Luigi Martínez [facility] CPT-83019 Level 4 Est. Patient 12:11:48 CDT Fabiola Johnson [facility] CPT-06435 Level 3 New Patient 16:53:37 CDT Albert Caldera MD [facility] CPT-64798 Level 3 Est. Patient 11:25:49 CDT Renzo Thornton DO [facility] CPT-68728 Level 3 Est. Patient 15:22:01 CDT Ahmet Carbajal MD [facility] CPT-35822 Level 4 Est. Patient 09:00:51 PLATE WORKER Vishal Hui MD [facility] CPT-74461 Level 3 Est. Patient 11:37:33 PLATE WORKER Vishal Hui MD [facility] CPT-38070 Level 3 Est. Patient 08:41:09 PLATE WORKER Vishal Hui MD [facility] CPT-13886 Level 4 Est. Patient 10:19:35 PLATE WORKER Vishal Hui MD [facility] CPT-11082 Level 3 Est. Patient 13:35:45 CDT Vishal Hui MD [facility] CPT-34340 Level 4 Est. Patient 10:08:37 CDT Vishal Hui MD [facility] CPT-31278 Level 3 Est. Patient 11:22:10 CDT Vishal Hui MD [facility] CPT-18700 Level 3 Est. Patient 11:03:32 CDT Sahara Rodriguez MD PhD [facility] CPT-29570 Level 3 Est. Patient 09:41:35 CDT Vishal Hui MD [facility] CPT-12456 Level 3 Est. Patient 12:00:41 CDT Neeraj Collins MD [facility] CPT-41515 Level 3 Est. Patient 09:16:24 CDT Vishal Hui MD [facility] CPT-23479 Level 4 Est. Patient 13:59:09 CDT Neeraj Collins MD [facility] CPT-75615 Level 3 Est. Patient 15:19:43 CDT Renzo Thornton [facility] CPT-22793 Level 3 Est. Patient 18:10:26 CDT [facility] [place] CPT-47631 Level 3 Est. Patient 14:49:50 CDT Vishal Hui MD [facility] [place] CPT-76515 Level 4 Est. Patient 18:41:46 CDT Neeraj Collins MD [facility] [place] CPT-89746 Level 4 Est. Patient 09:18:38 PLATE WORKER Vishal Hui MD [facility] [place] [facility] CPT-25881 Level 3 Est. Patient 14:43:55 PLATE WORKER Vishal Hui MD [facility] [place] CPT-62406 Level 3 Est. Patient 15:26:33 PLATE WORKER Sahara Rodriguez MD PhD [facility] [place] CPT-84658 Level 3 Est. Patient 10:32:14 PLATE WORKER Vishal Hui MD [facility] [place] CPT-13921 Level 3 Est. 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 Patient 09:19:27 CDT Vishal Hui MD [facility] [place] [facility] CPT-22437 Level 3 Est. Patient 15:53:00 CDT Renzo Thornton [facility] CPT-04721 Level 3 Est. Patient 15:50:30 CDT Renzo Thornton [facility] CPT-75735 Level 3 Est. Patient 16:55:24 CDT Vishal Hui MD [facility] [place] Procedures Code Procedure Name Date Entry Date Standard Description CPT-09199 TSH - LAB USE ONLY 08:50:26 PLATE WORKER CPT-26033 CBC - LAB USE ONLY 08:50:26 PLATE WORKER CPT-80326 Venipuncture Draw Fee 08:50:26 PLATE WORKER CPT-86416 Abx/Therapy Injection 17:34:30 PLATE WORKER CPT-65505 Nexplanon Removal with Reinsertion 14:09:32 CDT CPT-J7307 Nexplanon (Implant) 14:09:32 CDT CPT-OV Office Visit 14:09:32 CDT CPT-17371 UA w micro - LAB USE ONLY 16:21:13 CDT CPT-43084 Wet Mount - LAB USE ONLY 16:21:13 CDT CPT-82992 First Vx - Ix admin for Medicare patients 14:37:47 CDT CPT-16980 Fluzone Preservative Free Intramuscular Suspension 14:37 :47 CDT CPT-19205 Abx/Therapy Injection 13:54:22 CDT CPT-66418 Abx/Therapy Injection 08:47:09 CDT CPT-11001 Abx/Therapy Injection 13:29:56 CDT CPT-12919 Abx/Therapy Injection 08:36:16 CDT CPT-21882 Wet Mount - LAB USE ONLY 17:44:58 CDT CPT-25114 UA w micro - LAB USE ONLY 17:44:58 CDT CPT-77088 CMP - LAB USE ONLY 17:44:58 CDT CPT-28012 Venipuncture Draw Fee 17:44:58 CDT CPT-63096 Cervical Min 4V - XRAY USE ONLY 09:01:40 CDT CPT-01892 Chest 2V Frontal and Lat - XRAY USE ONLY 11:06:31 CDT CPT-09553 EKG Trac and Interp - XRAY USE ONLY 11:31:43 CDT 08/26 CPT-J3420 Vitamin B12 1000mcg (Cyanocobalamin) 08:10:26 PLATE WORKER 04/12 CPT-92343 Abx/Therapy Injection 08:10:26 PLATE WORKER CPT-G0438 Initial Annual Wellness Exam 19:01:01 PLATE WORKER CPT-J3420 Vitamin B12 1000mcg (Cyanocobalamin) 16:57:46 CDT 08/14 CPT-40275 Recombivax HB Injection Suspension 5 MCG/0.5ML 08:37:50 PLATE WORKER CPT-16433 Immunization Single Admin 08:37:50 PLATE WORKER CPT-J3420 Vitamin B12 1000mcg (Cyanocobalamin) 08:32:16 PLATE WORKER 03/11 CPT-03376 Abx/Therapy Injection 08:32:16 PLATE WORKER CPT-41007 Chest 2V Frontal and Lat 11:46:38 PLATE WORKER CPT-83845 Venipuncture Draw Fee 09:12:45 PLATE WORKER CPT-J3420 Vitamin B12 1000mcg (Cyanocobalamin) 08:50:15 PLATE WORKER 02/08 CPT-43377 Abx/Therapy Injection 08:50:15 PLATE WORKER CPT-Cryo Cryotherapy 10:19:35 PLATE WORKER CPT-000 Give Appropriate Flu Vaccine 09:22:16 CDT CPT-J3420 Vitamin B12 1000mcg (Cyanocobalamin) 19:08:57 CDT 01/11 CPT-61205 Abx/Therapy Injection 19:08:57 CDT CPT-J3420 Vitamin B12 1000mcg (Cyanocobalamin) 08:19:08 CDT 12/11 CPT-63998 Abx/Therapy Injection 08:19:08 CDT CPT-J3420 Vitamin B12 1000mcg (Cyanocobalamin) 14:48:00 CDT 11/09 CPT-64300 Abx/Therapy Injection 14:47:59 CDT CPT-J3420 Vitamin B12 1000mcg (Cyanocobalamin) 08:34:04 CDT 10/09 CPT-49099 Abx/Therapy Injection 08:34:04 CDT CPT-J3420 Vitamin B12 1000mcg (Cyanocobalamin) 09:18:52 CDT 09/11 CPT-18157 Abx/Therapy Injection 09:18:52 CDT CPT-J3420 Vitamin B12 1000mcg (Cyanocobalamin) 08:35:44 CDT 09/04 CPT-43759 Abx/Therapy Injection 08:35:44 CDT CPT-88987 Immunization Single Admin 11:07:16 CDT CPT-46519 Hepatitis B adult IM 11:07:16 CDT CPT-J3420 Vitamin B12 1000mcg (Cyanocobalamin) 11:00:49 CDT 08/28 CPT-J1040 Depo Medrol 80 mg (Methyl Prednisolone Acetate) 11:00: 49 CDT CPT-35418 Abx/Therapy Injection 11:00:49 CDT CPT-J1040 Depo Medrol 80 mg (Methyl Prednisolone Acetate) 09:16: 23 CDT CPT-J3420 Vitamin B12 1000mcg (Cyanocobalamin) 08:27:05 CDT 08/20 CPT-29047 Abx/Therapy Injection 08:27:05 CDT CPT-16781 Recombivax HB Injection Suspension 5 MCG/0.5ML 10:00:41 CDT CPT-03336 Administration single or combination vaccine inc oral 10 :00:41 CDT CPT-31694 Sono transvag pelvis non OB uterus ovaries cervix 16:36: 57 CDT CPT-96901 LS spine comp w obliq 09:50:55 PLATE WORKER CPT-23754 Abd compl w upright 09:50:55 PLATE WORKER CPT-J1100 Decadron 4mg (Dexamethasone) 15:51:24 PLATE WORKER CPT-J1030 Depo Medrol 40 mg (Methyl Prednisolone Acetate) 15:51: 24 PLATE WORKER CPT-18668 Abx/Therapy Injection 15:51:24 PLATE WORKER CPT-J1100 Decadron 4mg (Dexamethasone) 15:26:33 PLATE WORKER CPT-J1030 Depo Medrol 40 mg (Methyl Prednisolone Acetate) 15:26: 33 PLATE WORKER CPT-67560 Sono retroperitoneal complete kidneys and bladder 17:15: 30 CDT CPT-35985 Abd compl w upright 16:09:25 CDT CPT-J1100 Decadron 8mg (Dexamethasone) 17:07:57 CDT CPT-97629 Abx/Therapy Injection 17:07:57 CDT CPT-J1100 Decadron 8mg (Dexamethasone) 16:55:24 CDT CPT-37298 Chest 2V Frontal and Lat 16:32:44 CDT
[2016-11-04 13:04] VITALS: BP 129/84
--- OUTSIDE RECORDS SUMMARY | 2016-11-04 13:05 | XMS REPORT | Clinical Summary ---
Author Author Admin, [facility] Organization [employer] Address Unknown Phone Unavailable Allergies, Adverse Reactions, [...] fatigue Vitamin B12 deficiency 266.2 Active Marlena Fariasake Other B-complex deficiencies Vaginitis, candidal 112.1 Resolved [...] MD Esophageal reflux Personality change 301.9 Resolved Vihsal Hui MD Unspecified personality disorder Leukocytosis 288.60 Resolved Vishal Hui MD Leukocytosis, unspecified UTI 599.0 Resolved Vishal Hui MD Urinary tract infection, site not specified Headache, atypical 784.0 Resolved Albert Caldera MD Headache Elevated blood glucose 790.29 Resolved Vishal Hui MD Other abnormal glucose Polyarthralgia 719.49 Active Vishal Hui MD Pain in joint involving multiple sites Morbid obesity 278.01 Active Juliet Kimbrough BOAT PULLER Morbid obesity 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 Active Juliet Kimbrough BOAT PULLER Dependence on other enabling machines and devices Gait unsteady 781.2 Resolved Albert Caldera MD Abnormality of gait Lipoma 214.9 Resolved Albert Caldera MD Lipoma, unspecified site Abdominal pain, RUQ 789.01 Resolved Albert Caldrea MD Abdominal pain, right upper quadrant Chest [...] of breast Cigarette smoker 305.1 Active Ahmet Carbaajl MD Tobacco use disorder Nondisplaced transverse fracture of shaft of left fibula, subsequent encounter for closed fracture with routine healing Resolved Suzan Boo APRN Bronchitis, acute 466.0 Resolved Ahmet Carbajal MD Acute bronchitis Generalized anxiety disorder 300.02 Active Ahmet Carbajal MD Generalized anxiety disorder Wreath Inspector well woman exam V72.31 Resolved Suzan Boo [...] fracture with routine healing Inactive Suzan Boo BOAT P[employer]ER Bronchitis, acute ICD-466.0 Inactive Ahmet Carbajal MD Wreath Inspector well woman exam ICD-V72.31 Inactive Suzan Boo [employer]AT P[employer]ER Bronchitis, acute with mild bronchospasm ICD-466.0 Inactive Suzan Boo [employer]AT P[employer]ER Tracheitis ICD-464.10 Inactive Suzan Boo [employer]AT P[employer]ER Impetigo ICD-684 Inactive Suzan Boo BOAT P[employer]ER Furuncle of buttock ICD-680.5 Inactive Suzan Boo APRN Vaginal irritation ICD-623.9 Inactive Suzan Boo [employer]AT P[employer]ER Scalding pain on urination ICD-788.1 Inactive Suzan Boo APRN Abdominal pain, right upper quadrant ICD-789.01 Inactive Suzan Boo [employer]AT P[employer]ER Dark urine ICD-791.9 Inactive Suzan Boo APRN Preop exam ICD-V72.84 Inactive Suzan Boo [employer]AT P[employer]ER Medication List Medication Instructions Start Date Stop Date Generic Name NDC Status Provider Patient Instruction [id number] 50-325-40 MG TABS 1 to 2 four times a day as needed for headache [id number] Active Suzan Boo APRN Active METOCLOPRAMIDE HCL 10 MG TABS 1 two times as needed for nausea and headaches METOCLOPRAMIDE HCL 19011938305 Active Meena Zamorawhit NIELSEN Active NYSTATIN 912371 UNIT/GM CREA apply three times a day to yeast rash NYSTATIN 37277963420 Active Suzan Boo APRN Active AMITIZA 24 MCG ORAL CAPS one capsule twice daily LUBIPROSTONE 97693311947 Active Suzan Boo APRN Active MIRALAX ORAL POWD 17GMS DAILY IN WATER POLYETHYLENE GLYCOL 3350 47851685744 No Longer Active Suzan Boo APRN Active LACTULOSE 10 GM/15ML ORAL SOLN 30mL oral BID for IBS-C LACTULOSE 54425412774 No Longer Active Suzan Boo APRN Active BACTRIM DS 800-160 MG TAB Take one (1) tablet by mouth twice a day for 5 days TRIMETHOPRIM-SULFAMETHOXAZOLE 30284983619 No Longer Active Suzan Boo APRN Active MUPIROCIN 2 % OINT apply twice a day MUPIROCIN 72276982607 No Longer Active Suzan Boo APRN Active BACTRIM DS 800-160 MG TABS 1 twice a day SULFAMETHOXAZOLE-TRIMETHOPRIM 82026141877 No Longer Active Suzan Boo APRN Active DIFLUCAN 150 MG TABS 1 by mouth for yeast FLUCONAZOLE 79557501603 No Longer Active Suzan Boo APRN Active LINZESS 290 MCG ORAL CAPS 1 tab 30 min prior to first meal each day. LINACLOTIDE 33035485073 No Longer Active Sheila Calderon KILN BURNER HELPER Active AMITIZA 8 MCG ORAL CAPS 1 tab BID LUBIPROSTONE 88043656681 No Longer Active Lyndaveda Juarezl KILN BURNER HELPER Active TESSALON PERLES 100 MG CAPS 1 three times a day as needed for cough BENZONATATE 08475521481 No Longer Active Suzan Boo APRN Active BACTRIM DS 800-160 MG TABS 1 twice a day SULFAMETHOXAZOLE-TRIMETHOPRIM 93646911594 No Longer Active Suzan Boo APRN Active DIFLUCAN 150 MG TABS 1 by mouth for yeast FLUCONAZOLE 12613616926 No Longer Active Suzan Boo APRN Active EQ NICOTINE 21 MG/24HR TRANS PT24 Apply daily to stop smoking NICOTINE 93105140699 No Longer Active Suzan Boo APRN Active PREDNISONE 10 MG TABS 2 daily for 5 days then 1 daily for 5 days PREDNISONE 54086821164 No Longer Active Suzan Boo APRN Active LEVAQUIN 500 MG TABS 1 daily for infection LEVOFLOXACIN 23122439878 No Longer Active Suzan Boo APRN Active TROPICAMIDE 0.5 % OPHTH SOLN 1 drop PRN eye spasms TROPICAMIDE 89065419565 No Longer Active Suzan Boo APRN Active PREDNISONE 20 MG TAB 1 tablet daily x 4 days PREDNISONE 48250119145 No Longer Active Suzan Boo APRN Active ACETAMINOPHEN-CODEINE 120-12 MG/5ML SOLN 5 ml by mouth every 4-6 hours if needed for cough ACETAMINOPHEN-CODEINE 60434429602 No Longer Active Suzan Boo APRN Active KEFLEX 500 MG CAP 1 po qid CEPHALEXIN 85985722350 No Longer Active Suzan Boo APRN Active FLOVENT HFA 110 MCG/ACT AERO 2 puffs inhaled b.i.d. FLUTICASONE PROPIONATE HFA 58352766661 Active Renzo Thornton DO Active RISPERDAL 4 MG ORAL TABS 1 tab at bedtime RISPERIDONE 05166640145 Active Samantha Rothman RMA Active ZOFRAN 4 MG TABS 1 po q6hr PRN Nausea ONDANSETRON HCL No Longer Active Suzan Boo APRN Active FLUTICASONE PROPIONATE 50 MCG/ACT SUSP 2 sprays each nostril daily before bed. FLUTICASONE PROPIONATE 01365409490 No Longer Active Suzan Boo APRN Active ASPIRIN 325 MG ORAL TABS 1 tab q.d ASPIRIN 85198399485 No Longer Active Suzan Boo APRN Active HALOPERIDOL 10 MG ORAL TABS 1 tab q.d HALOPERIDOL 60019902728 No Longer Active Suzan Boo APRN Active GUAIFENESIN-CODEINE 100-10 MG/5ML SYRP 5ml every 4 to 6 hours as needed for cough GUAIFENESIN-CODEINE 85363903680 No Longer Active Suzan Boo APRN Active ZITHROMAX Z-EARNEST 250 MG TABS 2 today and then 1 daily for 4 days AZITHROMYCIN 36086514637 No Longer Active Suzan Boo APRN Active CLONAZEPAM 1 MG ORAL TABS 1 twice a day and an additional 1 tablet every other day as needed for pseudoseizures or anxiety CLONAZEPAM 97308038917 Active Suzan Boo APRN Active HYDROCODONE-ACETAMINOPHEN 5-325 MG ORAL TABS 1 tab two times a day HYDROCODONE-ACETAMINOPHEN 09886894829 No Longer Active Ahmet Carbajal MD Active LAMICTAL 100 MG ORAL TABS 1 tab 2 times qd. LAMOTRIGINE 50905481843 Active Ahmet Carbajal MD Active PREDNISONE 20 MG TABS 2 daily for 5 days then 1 daily for 5 days PREDNISONE 64182603018 No Longer Active Ahmet Carbajal MD Active FLUTICASONE PROPIONATE 50 MCG/ACT SUSP 1 to 2 sprays each nostril daily for allergies FLUTICASONE PROPIONATE 27911878581 Active Tila Valenzuela Active BENADRYL 25 MG CAP 4 po at bedtime for insomnia DIPHENHYDRAMINE HCL 80721429919 No Longer Active Ahmet Carbajal MD Active ADVAIR DISKUS 250-50 MCG/DOSE INH AEPB 1 puff twice a day for asthma FLUTICASONE-SALMETEROL 99974460077 No Longer Active Ahmet Carbajal MD Active KLONOPIN 1 MG ORAL TABS 1 tab po TID CLONAZEPAM 52987907454 No Longer Active Ahmet Carbajal MD Active ABILIFY MAINTENA 400 MG IM SUSR 400mg injection every 26 days ARIPIPRAZOLE 86355140190 No Longer Active Ahmet Carbajal MD Active TRAMADOL HCL 50 MG TABS 1/2-1 tab TID PRN TRAMADOL HCL 52119745727 No Longer Active Ahmet Carbajal MD Active BACTRIM DS 800-160 MG TABS 1 twice a day SULFAMETHOXAZOLE- TRIMETHOPRIM 80480087036 No Longer Active Ahmet Carbajal MD Active PROAIR HFA 108 (90 BASE) MCG/ACT AERS 2 puffs four times a day as needed 2015 ALBUTEROL SULFATE 77660712594 Active Honey Behzadstevenson BOAT PULLER Active MONISTAT 7 COMBO PACK WOODROW 100 & 2 MG-% (9GM) VAG KIT 1 applicatorful per vagina q pm x 7 MICONAZOLE NITRATE 20525142001 No Longer Active Ahmet Carbajal MD Active FLAGYL 500 MG TAB 1 tablet by mouth bid METRONIDAZOLE 41666691533 No Longer Active Ahmet Carbajal MD Active OXYCODONE HCL ER 10 MG ORAL T12A 1/2 tab by mouth every 4 hours prn OXYCODONE HCL 67539268873 No Longer Active Ahmet Carbajal MD Active METHYLPREDNISOLONE 4 MG ORAL TABS po daily METHYLPREDNISOLONE 75774648509 No Longer Active Ahmet Carbajal MD Active LEVOFLOXACIN 500 MG ORAL TABS po daily LEVOFLOXACIN 60362506369 No Longer Active Ahmet Carbajal MD Active VIIBRYD 10 MG ORAL TABS Take 1 tablet once a day VILAZODONE HCL 09163371825 No Longer Active Ahmet Carbajal MD Active TOPAMAX 50 MG ORAL TABS 1 tab twice daily TOPIRAMATE 48728119128 No Longer Active Ahmet Carbajal MD Active DICLOFENAC SODIUM 50 MG TBEC 1 tablet by mouth four times daily PRN Pain 2015 DICLOFENAC SODIUM 53833542931 No Longer Active Ahmet Carbajal MD Active ADZENYS XR-ODT 6.3 MG ORAL TBED 1 tab po daily for ADHD AMPHETAMINE 28275314751 No Longer Active Ahmet Carbajal MD Active CHANTIX 1 MG TABS 1 twice a day to help quit smoking VARENICLINE TARTRATE 84799886162 No Longer Active Dipika Burgos MD Active CHANTIX STARTING MONTH EARNEST 0.5 MG X 11 & 1 MG X 42 TABS take as directed 2015 VARENICLINE TARTRATE 06764065784 No Longer Active Dipika Burgos MD Active TESSALON PERLES 100 MG CAP 1 to 2 tablets by mouth 3 times daily as needed for cough BENZONATATE 50092500008 No Longer Active Luigi Martínez BOAT PULLER Active IMITREX 50 MG ORAL TABS 0.5 po x 1 PRN Headache. May repeat dose x 1 in 2 hours if needed SUMATRIPTAN SUCCINATE 73082553032 Active TAMARA Casey Active HYDROCODONE-ACETAMINOPHEN 5-325 MG TABS 1 to 2 four times a day as needed for pain use until can be seen by specialist HYDROCODONE- ACETAMINOPHEN 94866819264 No Longer Active Vishal Hui MD Active PROAIR HFA 108 (90 BASE) MCG/ACT AERS 2 puffs four times a day as needed 2015 ALBUTEROL SULFATE 91097456924 No Longer Active Vishal Hui MD Active PREDNISONE 20 MG TABS 2 daily for 5 days then 1 daily for 5 days PREDNISONE 88672338625 No Longer Active Vishal Hui MD Active ZITHROMAX Z-EARNEST 250 MG TABS 2 today and then 1 daily for 4 days AZITHROMYCIN 83827151261 No Longer Active Vishal Hui MD Active DICLOFENAC POTASSIUM TABS Take 1 tablet twice a day (pt. is not sure of the dose.) DICLOFENAC POTASSIUM TABS 42091626922 No Longer Active Vishal Hui MD Active VERAPAMIL HCL ER 120 MG ORAL CR-TABS Take 1 tablet by mouth twice a day. VERAPAMIL HCL 30094543567 Active Vishal Hui MD Active FLAGYL 500 MG TAB 1 tablet by mouth bid METRONIDAZOLE 21353919562 No Longer Active Vishal Hui MD Active VALIUM 5 MG TAB Take 1-2 tablets daily DIAZEPAM 35245642835 No Longer Active Fabiola Johnson APRN Active METOPROLOL TARTRATE 25 MG ORAL TABS 1/2 tablet twice daily for heart rate and blood pressure METOPROLOL TARTRATE 05536743555 No Longer Active Fabiola Johnson APRN Active MIRALAX PACK 1 po qd PRN Constipation POLYETHYLENE GLYCOL 3350 37938207626 No Longer Active Ahmet Carbajal MD Active MINIPRESS 2 MG CAPS 4 cap po at night PRAZOSIN HCL 57750438433 No Longer Active Ahmet Carbajal MD Active PIROXICAM 20 MG CAPS 1 cap po qd PRN Pain PIROXICAM 21035503017 No Longer Active Ahmet Carbajal MD Active TRAMADOL HCL 50 MG TABS 1-2 po TID PRN Pain TRAMADOL HCL 16207519259 No Longer Active Ahmet Carbajal MD Active METOPROLOL TARTRATE 50 MG TAB 1 po bid METOPROLOL TARTRATE 48508391086 No Longer Active Ahmet Carbajal MD Active ABILIFY 15 MG ORAL TABS 1 tab daily ARIPIPRAZOLE 62637131962 No Longer Active Ahmet Carbajal MD Active PROZAC 20 MG ORAL CAPS 1 tab daily FLUOXETINE HCL 79213096437 No Longer Active Ahmet Carbajal MD Active AMBIEN 5 MG ORAL TABS 1 tab at bedtime ZOLPIDEM TARTRATE 19548234801 No Longer Active Ahmet Carbajal MD Active PREDNISONE 20 MG TAB 2 tabs daily for 4 days, 1 tab daily for 4 days, 1/2 tab daily for 4 days PREDNISONE 44749759424 No Longer Active Ahmet Carbajal MD Active KEFLEX 500 MG CAP 1 po TID x 10 days CEPHALEXIN 70805493323 No Longer Active Vishal Hui MD Active SAPHRIS 5 MG SUBL 1 po bid ASENAPINE MALEATE 83812254597 No Longer Active Pacollina Mauricio BOAT PULLER Active LATUDA 80 MG TABS Take one by mouth daily LURASIDONE HCL 27193536081 No Longer Active Jillina Fralebron BOAT PULLER Active AMLODIPINE BESYLATE 5 MG TABS 1 tablet by mouth daily AMLODIPINE BESYLATE 91146640333 No Longer Active Jillina Mauricio NORIEGA Active AMITRIPTYLINE HCL 100 MG TAB one at hs AMITRIPTYLINE HCL 30075147968 No Longer Active Vishal Hui MD Active TRAZODONE HCL 100 MG TAB take 1 at bedtime TRAZODONE HCL 48208952536 No Longer Active Vishal Hui MD Active VYVANSE 40 MG CAPS 1 daily, LISDEXAMFETAMINE DIMESYLATE 41030573116 No Longer Active Vishal Hui MD Active IBUPROFEN 600 MG TAB 1 po TID PRN IBUPROFEN 93173028584 No Longer Active Vishal Hui MD Active PROZAC 20 MG CAP Take one by mouth daily FLUOXETINE HCL 95793154182 No Longer Active Vishal Hui MD Active BACTRIM DS 800-160 MG TABS 1 pill by mouth twice daily SULFAMETHOXAZOLE-TRIMETHOPRIM 80124203131 No Longer Active Sahara Rodriguez MD PhD Active DIFLUCAN 150 MG TAB 1 tablet by mouth daily FLUCONAZOLE 64426527506 No Longer Active Vishal Hui MD Active TIZANIDINE HCL 4 MG TABS 1 po q6hr PRN Muscle Spasm/Back Pain TIZANIDINE HCL 36717940763 Active TAMARA Casey Active CLINDAMYCIN HCL 150 MG CAPS 1 four times a day CLINDAMYCIN HCL 62218951836 No Longer Active Neeraj Collins MD Active KEFLEX 500 MG ORAL CAPS 1 cap QID by mouth CEPHALEXIN 05196024552 No Longer Active Neeraj Collins MD Active DIFLUCAN 150 MG TABS 1 pill every other day x 2 doses FLUCONAZOLE 53525711803 No Longer Active Sahara Rodriguez MD PhD Active MELATONIN 3 MG CAPS 2 po q hs MELATONIN 30322017262 No Longer Active Sahara Rodriguez MD PhD Active MULTIVITAMINS CAPS Take one by mouth daily MULTIPLE VITAMIN 50478760045 No Longer Active Sahara Rodriguez MD PhD Active BACTRIM DS 800-160 MG TAB 1 tab by mouth twice daily TRIMETHOPRIM-SULFAMETHOXAZOLE 12221969409 No Longer Active Sahara Rodriguez MD PhD Active [facility] PROBIOTIC ORAL CHEW 2 daily po PROBIOTIC PRODUCT 78677570063 No Longer Active Sahara Rodriguez MD PhD Active BACTRIM DS 800-160 MG TABS 1 po BID x 7 days SULFAMETHOXAZOLE-TRIMETHOPRIM 76325861835 No Longer Active Vishal Hui MD Active CHANTIX STARTING MONTH EARNEST 0.5 MG X 11 & 1 MG X 42 TABS 0.5mg daily for 3 days , then 0.5mg BID for 4 days, then 1mg BID VARENICLINE TARTRATE 22630757583 No Longer Active TAMARA Gray Active VERAPAMIL HCL CR 120 MG TAB CR 1 po bid VERAPAMIL HCL 86671787141 No Longer Active Vishal Hui MD Active METOPROLOL SUCCINATE 50 MG TB24 1 tablet by mouth daily METOPROLOL SUCCINATE 98290387187 No Longer Active Vishal Hui MD Active SAPHRIS 10 MG SUBL 1 tab po bid ASENAPINE MALEATE 26413729027 No Longer Active Vishal Hui MD Active LISINOPRIL 20 MG TABS 1 tab po qd LISINOPRIL 61618994499 No Longer Active Vishal Hui MD Active LATUDA 20 MG TABS Take one by mouth daily LURASIDONE HCL 32833489445 No Longer Active Vishal Hui MD Active TRAZODONE HCL 50 MG TABS 1/2 tab po qd prn for anxiety TRAZODONE HCL 30314181746 No Longer Active Vishal Hui MD Active OMEPRAZOLE 20 MG TBEC 1 po q a.m. 30min prior to first food intake OMEPRAZOLE 87976946189 Active TAMARA Casey Active RANITIDINE HCL 150 MG CAPS 1 twice a day RANITIDINE HCL 41187707964 Active Lynda Xiao LPN Active LINZESS 290 MCG CAPS Take one by mouth daily LINACLOTIDE 74086995027 No Longer Active Vishal Hui MD Active SAPHRIS 5 MG SUBL 1 tab po qd ASENAPINE MALEATE 13853299021 No Longer Active Vishal Hui MD Active ZALEPLON 10 MG CAPS 1 cap po every other night ZALEPLON 74700895264 No Longer Active Vishal Hui MD Active LYRICA 50 MG CAPS 1 tab po TID PREGABALIN 02374421030 No Longer Active Vishal Hui MD Active LORATADINE 10 MG TABS 1 tab po qd LORATADINE 13062105060 No Longer Active Vishal Hui MD Active VERAPAMIL HCL ER 180 MG CR-TABS 1 tab po bid VERAPAMIL HCL 46090082405 No Longer Active Vishal Hui MD Active MIRALAX POWD 1 capfull once daily POLYETHYLENE GLYCOL 3350 78839384380 No Longer Active Vishal Hui MD Active PREDNISONE 20 MG TABS 1 tab po qd PREDNISONE 34141427163 No Longer Active Renzo Thornton DO Active LEVOFLOXACIN 500 MG TABS 1 tab po qd LEVOFLOXACIN 00944374303 No Longer Active Renzo Thornton DO Active BUSPIRONE HCL 15 MG TABS 1 tab po TID BUSPIRONE HCL 72474653583 No Longer Active Renzo Thornton DO Active BENZTROPINE MESYLATE 1 MG TABS 1 tab po qd BENZTROPINE MESYLATE 08717699309 No Longer Active Renzo Thornton DO Active ATENOLOL 25 MG TABS 1 tab po qd ATENOLOL 68060136600 No Longer Active Renzo Thornton DO Active ESCITALOPRAM OXALATE 20 MG TABS 1 tab po qd ESCITALOPRAM OXALATE 77724749489 No Longer Active Renzo Thornton DO Active ADVAIR DISKUS 250-50 MCG/DOSE AEPB 1 puff BID FLUTICASONE-SALMETEROL 39248711649 No Longer Active Renzo Thornton DO Active PREDNISONE 20 MG TAB 2 tabs daily for 3 days, 1 tab daily for 3 days, 1/2 tab daily for 2 days PREDNISONE 65575834010 No Longer Active Vishal Hui MD Active CEFDINIR 300 MG CAPS by mouth twice a day CEFDINIR 14796485350 No Longer Active Vishal Hui MD Active LANSOPRAZOLE 30 MG CPDR 1 cap po qd LANSOPRAZOLE 52660922788 No Longer Active Vishal Hui MD Active BACLOFEN 20 MG TABS 1 tab po tid BACLOFEN 70049871274 No Longer Active Vishal Hui MD Active ADVAIR DISKUS 250-50 MCG/DOSE AEPB 1 puff BID ADVAIR DISKUS 250-50 MCG/DOSE AEPB FLUTICASONE-SALMETEROL Inactive ESCITALOPRAM OXALATE 20 MG TABS 1 tab po qd ESCITALOPRAM OXALATE 20 MG TABS 294900 ESCITALOPRAM OXALATE Inactive ATENOLOL 25 MG TABS 1 tab po qd ATENOLOL 25 MG TABS 582605 ATENOLOL Inactive BENZTROPINE MESYLATE 1 MG TABS 1 tab po qd BENZTROPINE MESYLATE 1 MG TABS 377012 BENZTROPINE MESYLATE Inactive BUSPIRONE HCL 15 MG TABS 1 tab po TID BUSPIRONE HCL 15 MG TABS 295629 BUSPIRONE HCL Inactive LEVOFLOXACIN 500 MG TABS 1 tab po qd LEVOFLOXACIN 500 MG TABS 526683 LEVOFLOXACIN Inactive PREDNISONE 20 MG TABS 1 tab po qd PREDNISONE 20 MG TABS 367969 PREDNISONE Inactive MIRALAX POWD 1 capfull once daily MIRALAX POWD 232965 POLYETHYLENE GLYCOL 3350 Inactive VERAPAMIL HCL ER 180 MG CR-TABS 1 tab po bid VERAPAMIL HCL ER 180 MG CR-TABS VERAPAMIL HCL Inactive LORATADINE 10 MG TABS 1 tab po qd LORATADINE 10 MG TABS 680630 LORATADINE Inactive LYRICA 50 MG CAPS 1 tab po TID LYRICA 50 MG CAPS PREGABALIN Inactive ZALEPLON 10 MG CAPS 1 cap po every other night ZALEPLON 10 MG CAPS 902881 ZALEPLON Inactive SAPHRIS 5 MG SUBL 1 tab po qd SAPHRIS 5 MG SUBL ASENAPINE MALEATE Inactive TRAZODONE HCL 50 MG TABS 1/2 tab po qd prn for anxiety TRAZODONE HCL 50 MG TABS 836928 TRAZODONE HCL Inactive LATUDA 20 MG TABS Take one by mouth daily LATUDA 20 MG TABS LURASIDONE HCL Inactive LISINOPRIL 20 MG TABS 1 tab po qd LISINOPRIL 20 MG TABS 305114 LISINOPRIL Inactive SAPHRIS 10 MG SUBL 1 [...] twice daily BACTRIM DS 800-160 MG TAB 188148 TRIMETHOPRIM-SULFAMETHOXAZOLE Inactive MULTIVITAMINS CAPS Take one by mouth daily MULTIVITAMINS CAPS MULTIPLE VITAMIN Inactive MELATONIN 3 MG CAPS 2 po q hs MELATONIN 3 MG CAPS 830531 MELATONIN Inactive KEFLEX 500 MG ORAL CAPS 1 cap QID by mouth KEFLEX 500 MG ORAL CAPS 836859 CEPHALEXIN Inactive CLINDAMYCIN HCL 150 MG CAPS 1 four times a day CLINDAMYCIN HCL 150 MG CAPS 493295 CLINDAMYCIN HCL Inactive DIFLUCAN 150 MG TAB 1 tablet by mouth daily DIFLUCAN 150 MG TAB 896582 FLUCONAZOLE Inactive PROZAC 20 MG CAP Take one by mouth daily PROZAC 20 MG CAP 984659 FLUOXETINE HCL Inactive IBUPROFEN 600 MG TAB 1 po TID PRN IBUPROFEN 600 MG TAB 818355 IBUPROFEN Inactive VYVANSE 40 MG CAPS 1 daily, VYVANSE 40 MG CAPS LISDEXAMFETAMINE DIMESYLATE Inactive TRAZODONE HCL 100 MG TAB take 1 at bedtime TRAZODONE HCL 100 MG TAB 839043 TRAZODONE HCL Inactive AMITRIPTYLINE HCL 100 MG TAB one at hs AMITRIPTYLINE HCL 100 MG TAB 428930 AMITRIPTYLINE HCL Inactive AMLODIPINE BESYLATE 5 MG TABS 1 tablet by mouth daily AMLODIPINE BESYLATE 5 MG TABS 149673 AMLODIPINE BESYLATE Inactive LATUDA 80 MG TABS Take one by mouth daily LATUDA 80 MG TABS LURASIDONE HCL Inactive SAPHRIS 5 MG SUBL 1 po bid SAPHRIS 5 MG SUBL ASENAPINE MALEATE Inactive PREDNISONE 20 MG TAB 2 tabs daily for 4 days, 1 tab daily for 4 days, 1/2 tab daily for 4 days PREDNISONE 20 MG TAB 301007 PREDNISONE Inactive AMBIEN 5 MG ORAL TABS 1 tab at bedtime AMBIEN 5 MG ORAL TABS 782212 ZOLPIDEM TARTRATE Inactive PROZAC 20 MG ORAL CAPS 1 tab daily PROZAC 20 MG ORAL CAPS 181555 FLUOXETINE HCL Inactive ABILIFY 15 MG ORAL TABS 1 tab daily ABILIFY 15 MG ORAL TABS 334711 ARIPIPRAZOLE Inactive METOPROLOL TARTRATE 50 MG TAB 1 po bid METOPROLOL TARTRATE 50 MG TAB 884286 METOPROLOL TARTRATE Inactive TRAMADOL HCL 50 MG TABS 1-2 po TID PRN Pain TRAMADOL HCL 50 MG TABS 481428 TRAMADOL HCL Inactive PIROXICAM 20 MG CAPS 1 cap po qd PRN Pain PIROXICAM 20 MG CAPS 577092 PIROXICAM Inactive MINIPRESS 2 MG CAPS 4 cap po at night MINIPRESS 2 MG CAPS 989354 PRAZOSIN HCL Inactive MIRALAX PACK 1 po qd PRN Constipation MIRALAX PACK 913913 POLYETHYLENE GLYCOL 3350 Inactive METOPROLOL TARTRATE 25 MG ORAL TABS 1/2 tablet twice daily for heart rate and blood pressure METOPROLOL TARTRATE 25 MG ORAL TABS 702179 METOPROLOL TARTRATE Inactive VALIUM 5 MG TAB Take 1-2 tablets daily VALIUM 5 MG TAB 146144 DIAZEPAM Inactive FLAGYL 500 MG TAB 1 tablet by mouth bid FLAGYL 500 MG TAB 698533 METRONIDAZOLE Inactive DICLOFENAC POTASSIUM TABS Take 1 tablet twice a day (pt. is not sure of the dose.) DICLOFENAC POTASSIUM TABS DICLOFENAC POTASSIUM TABS Inactive ZITHROMAX Z-EARNEST 250 MG TABS 2 today and then 1 daily for 4 days ZITHROMAX Z-EARNEST 250 MG TABS 7240770 AZITHROMYCIN Inactive PREDNISONE 20 MG TABS 2 daily for 5 days then 1 daily for 5 days PREDNISONE 20 MG TABS 171692 PREDNISONE Inactive PROAIR HFA 108 (90 BASE) MCG/ACT AERS 2 puffs four times a day as needed 2015 PROAIR HFA 108 (90 BASE) MCG/ACT AERS ALBUTEROL SULFATE Inactive HYDROCODONE-ACETAMINOPHEN 5-325 MG TABS 1 to 2 four times a day as needed for pain use until can be seen by specialist HYDROCODONE- ACETAMINOPHEN 5-325 MG TABS 720502 HYDROCODONE-ACETAMINOPHEN Inactive TESSALON PERLES 100 MG CAP 1 to 2 tablets by mouth 3 times daily as needed for cough TESSALON PERLES 100 MG CAP 730544 BENZONATATE Inactive CHANTIX STARTING MONTH EARNEST 0.5 [...] Pain 2015 DICLOFENAC SODIUM 50 MG TBEC 059990 DICLOFENAC SODIUM Inactive TOPAMAX 50 MG ORAL TABS 1 tab twice daily TOPAMAX 50 MG ORAL TABS 009682 TOPIRAMATE Inactive VIIBRYD 10 MG ORAL TABS Take 1 tablet once a day VIIBRYD 10 MG ORAL TABS VILAZODONE HCL Inactive LEVOFLOXACIN 500 MG ORAL TABS po daily LEVOFLOXACIN 500 MG ORAL TABS 534185 LEVOFLOXACIN Inactive METHYLPREDNISOLONE 4 MG ORAL TABS po daily METHYLPREDNISOLONE 4 MG ORAL TABS 108622 METHYLPREDNISOLONE Inactive OXYCODONE HCL ER 10 MG ORAL T12A 1/2 tab by mouth every 4 hours prn OXYCODONE HCL ER 10 MG ORAL T12A OXYCODONE HCL Inactive FLAGYL 500 MG TAB 1 tablet by mouth bid FLAGYL 500 MG TAB 713991 METRONIDAZOLE Inactive MONISTAT 7 COMBO PACK WOODROW 100 & 2 MG-% (9GM) VAG KIT 1 applicatorful per vagina q pm x 7 MONISTAT 7 COMBO PACK WOODROW 100 & 2 MG-% (9GM) VAG KIT MICONAZOLE NITRATE Inactive BACTRIM DS 800-160 MG TABS 1 twice a day BACTRIM DS 800-160 MG TABS 730711 SULFAMETHOXAZOLE-TRIMETHOPRIM Inactive TRAMADOL HCL 50 MG TABS 1/2-1 tab TID PRN TRAMADOL HCL 50 MG TABS 145827 TRAMADOL HCL Inactive ABILIFY MAINTENA 400 MG IM SUSR 400mg injection every 26 days ABILIFY MAINTENA 400 MG IM SUSR ARIPIPRAZOLE Inactive KLONOPIN 1 MG ORAL TABS 1 tab po TID KLONOPIN 1 MG ORAL TABS 178763 CLONAZEPAM Inactive ADVAIR DISKUS 250-50 MCG/DOSE INH AEPB 1 puff twice a day for asthma ADVAIR DISKUS 250-50 MCG/DOSE INH AEPB FLUTICASONE- SALMETEROL Inactive BENADRYL 25 MG CAP 4 po at bedtime for insomnia BENADRYL 25 MG CAP DIPHENHYDRAMINE HCL Inactive PREDNISONE 20 MG TABS 2 daily for 5 days then 1 daily for 5 days PREDNISONE 20 MG TABS [id number] PREDNISONE Inactive HYDROCODONE-ACETAMINOPHEN 5-325 MG ORAL TABS 1 tab two times a day HYDROCODONE-ACETAMINOPHEN 5-325 MG ORAL TABS [id number] HYDROCODONE-ACETAMINOPHEN Inactive ZITHROMAX Z-EARNEST 250 MG TABS 2 today and then 1 daily for 4 days ZITHROMAX Z-EARNEST 250 MG TABS [id number] AZITHROMYCIN Inactive GUAIFENESIN-CODEINE 100-10 MG/5ML SYRP 5ml every 4 to 6 hours as needed for cough GUAIFENESIN-CODEINE 100-10 MG/5ML SYRP 890078 GUAIFENESIN-CODEINE Inactive HALOPERIDOL 10 MG ORAL TABS 1 tab q.d HALOPERIDOL 10 MG ORAL TABS 579759 HALOPERIDOL Inactive ASPIRIN 325 MG ORAL TABS 1 tab q.d ASPIRIN 325 MG ORAL TABS 425706 ASPIRIN Inactive FLUTICASONE PROPIONATE 50 MCG/ACT SUSP 2 sprays each nostril daily before bed. FLUTICASONE PROPIONATE 50 MCG/ACT SUSP [id number] FLUTICASONE PROPIONATE Inactive ZOFRAN 4 MG TABS 1 po q6hr PRN Nausea ZOFRAN 4 MG TABS 919872 ONDANSETRON HCL Inactive KEFLEX 500 MG CAP 1 po qid KEFLEX 500 MG CAP 347113 CEPHALEXIN Inactive ACETAMINOPHEN-CODEINE 120-12 MG/5ML SOLN 5 ml by mouth every 4-6 hours if needed for cough ACETAMINOPHEN-CODEINE 120-12 MG/5ML SOLN 468963 ACETAMINOPHEN-CODEINE Inactive PREDNISONE 20 MG TAB 1 tablet daily x 4 days PREDNISONE 20 MG TAB 377115 PREDNISONE Inactive TROPICAMIDE 0.5 % OPHTH SOLN 1 drop PRN eye spasms TROPICAMIDE 0.5 % OPHTH SOLN 514196 TROPICAMIDE Inactive LEVAQUIN 500 MG TABS 1 daily for infection LEVAQUIN 500 MG TABS 254754 LEVOFLOXACIN Inactive PREDNISONE 10 MG TABS 2 daily for 5 days then 1 daily for 5 days PREDNISONE 10 MG TABS 307517 PREDNISONE Inactive EQ NICOTINE 21 MG/24HR TRANS [...] twice a day MUPIROCIN 2 % OINT 906109 MUPIROCIN Inactive BACTRIM DS 800-160 MG TAB Take one (1) tablet by mouth twice a day for 5 days BACTRIM DS 800-160 MG TAB [id number] TRIMETHOPRIM- SULFAMETHOXAZOLE Inactive LACTULOSE 10 GM/15ML ORAL SOLN 30mL oral BID for IBS-C LACTULOSE 10 GM/15ML ORAL SOLN 881163 LACTULOSE Inactive MIRALAX ORAL POWD 17GMS DAILY IN WATER MIRALAX ORAL POWD 304622 POLYETHYLENE GLYCOL 3350 Inactive CEFDINIR 300 MG CAPS by mouth twice a day CEFDINIR 300 MG CAPS 083312 CEFDINIR Inactive PREDNISONE 20 MG TAB 2 tabs daily for 3 days, 1 tab daily for 3 days, 1/2 tab daily for 2 days PREDNISONE 20 MG TAB 343834 PREDNISONE Inactive BACTRIM DS 800-160 MG TABS 1 po BID x 7 days BACTRIM DS 800-160 MG TABS 19820521 SULFAMETHOXAZOLE-TRIMETHOPRIM Inactive DIFLUCAN 150 MG TABS 1 pill every other day x 2 doses DIFLUCAN 150 MG TABS 462093 FLUCONAZOLE Inactive BACTRIM DS 800-160 MG TABS 1 pill by mouth twice daily BACTRIM DS 800-160 MG TABS 19820521 SULFAMETHOXAZOLE-TRIMETHOPRIM Inactive KEFLEX 500 MG CAP 1 po TID x 10 days KEFLEX 500 MG CAP 872211 CEPHALEXIN Inactive Advance Directives Directive Description Start [...] % 11.0-15.0 platelet count 443 THOUSAND/UL 10*3/mm3 532-316 4271/03/01 mean platelet volume 8.2 fL 7.5-12.5 leukocyte count, blood 8.4 THOUSAND/UL 10*3/mm3 3.8-10.8 mean corpuscular hemoglobin concentration, RBC 33.9 G/DL % 32.0- 36.0 red blood cell distribution width 13.3 % 11.0-15.0 platelet count 349 THOUSAND/UL 10*3/mm3 949-364 0933/04/12 mean platelet volume 8.4 fL 7.5-12.5 erythrocyte (RBC) count 4.30 MILLION/UL 10*6/mm3 3.80-5.10 hemoglobin, blood 13.5 g/dL 11.7-15.5 hematocrit, blood 39.8 % 35.0-45.0 mean corpuscular volume, RBC 92.5 fL 80.0-100.0 mean corpuscular hemoglobin, RBC 31.4 pg 27.0-33.0 Lab Report: CBC W/DIFF, Comp. Metabolic Panel, HGBA1C, Magnesium - Chemistry sodium, serum 141 mmol/L [phone]/07/24 carbon dioxide, venous blood 27.8 mmol/L 21.0-32.0 [...] leukocyte count, blood 11.1 10^3/MM^3 10*3/mm3 4.6-10.2 mean corpuscular hemoglobin concentration, RBC 34.1 G/DL % 31.8- 35.4 red blood cell distribution width 11.8 % 11.6-14.8 platelet count 369 10^3/MM^3 10*3/mm3 933-675 2177/12/21 erythrocyte (RBC) count 4.78 10^6/MM^3 10*6/mm3 4.04-5.48 hemoglobin, blood 15.3 g/dL 12.0-16.0 hematocrit, blood 45.0 % 36.0-46.0 mean corpuscular volume, RBC 94 fL 80-97 mean corpuscular hemoglobin, RBC 32.1 pg 27.0-31.2 Lab Report: Chlamydia/GC APTIMA/01976 - Lab chlamydia DNA probe NOT DETECTED NOT DETECTED Lab Report: Chlamydia/GC APTIMA/99547 - Microbiology Neisseria gonorrhoeae DNA probe NOT DETECTED NOT DETECTED Lab Report: Chlamydia/GC APTIMA/52994, Urinalysis, Complete, with Reflex ... - Lab chlamydia DNA probe NOT DETECTED NOT DETECTED Lab Report: Chlamydia/GC APTIMA/86789, Urinalysis, Complete, with Reflex ... - Microbiology Neisseria gonorrhoeae DNA probe NOT DETECTED NOT DETECTED Lab Report: Chlamydia/GC APTIMA/50715, Urinalysis, Complete, with Reflex ... - Urinalysis microalbumin/total urine volume 2 mg/L Units converted. See lab report for original value. microalbumin/creatinine ratio, urine 9 MCG/MG CREAT mg/L <30 Lab Report: Comp. Metabolic Panel - Chemistry sodium, serum 140 mmol/L 786-261 1865/06/28 carbon dioxide, venous blood 23.8 mmol/L 21.0-32.0 potassium, serum 3.8 mmol/L 3.5-5.2 chloride, serum 104 mmol/L 98-107 blood glucose 78 mg/dL 65-110 urea nitrogen, blood 12 mg/dL 7-18 creatinine, serum 0.86 mg/dL 0.55-1.30 alanine aminotransferase (SGPT), serum 38 U/L -78 aspartate aminotransferase (SGOT), serum 17 U/L 15-37 calcium, serum 9.3 mg/dL 8.5-10.1 bilirubin, serum, total 0.20 mg/dL 0.00-1.00 calcium, serum 9.7 mg/dL 8.5-10.1 blood glucose 80 mg/dL 65-110 chloride, serum 103 mmol/L 98-107 potassium, serum 5.0 mmol/L 3.5-5.2 carbon dioxide, venous blood 33.7 mmol/L 21.0-32.0 sodium, serum 140 mmol/L 386-947 2061/08/08 aspartate aminotransferase (SGOT), serum 29 U/L - alanine aminotransferase (SGPT), serum 54 U/L - creatinine, serum 0.88 mg/dL 0.55-1.30 urea nitrogen, blood 13 mg/dL 7-18 bilirubin, serum, total 0.30 mg/dL 0.00-1.00 Lab Report: HEPATITIS PANEL, ACUTE W/REFLE - Chemistry hepatitis B surface antigen NON-REACTIVE NON-REACTIVE Lab Report: UADIP W/MICRO, AUTO - Chemistry RBC, urine, dipstick Negative Negative protein, total urine random Negative mg/dL Negative protein, total urine random Trace mg/dL Negative RBC, urine, dipstick Trace-intact Negative protein, total urine random Negative mg/dL [...] 5.5 5.0-8.5 urobilinogen, urine, semiquantitative (dipstick) 0.2 E.U./dL Normal leukocyte esterase, urine, by dipstick Negative Negative nitrite, urine, semiquantitative Negative Negative glucose, urine, semiquantitative Negative Negative ketones, urine, by test strip Negative Negative bilirubin, urine Negative Negative urine color Yellow Colorless;Lightyellow;Straw;Yellow appearance, urine Clear Clear specific gravity, urine >=1.030 1.000-1.030 pH, urine, semiquantitative 5.0 5.0-8.5 urobilinogen, urine, semiquantitative (dipstick) 0.2 E.U./dL Normal leukocyte esterase, urine, by dipstick Negative Negative nitrite, urine, semiquantitative Negative Negative glucose, urine, semiquantitative Negative Negative ketones, urine, by test strip 1+ Negative bilirubin, urine 1+ Negative Encounters Code Encounter Date Provider Facility CPT-23451 Level 3 Est. Patient 10:53:17 CDT Suzan [facility]-82462 Level 3 Est. Patient 11:08:35 CDT Suzan [facility]-03754 Level 3 Est. Patient 15:55:20 CDT Suzan [facility]-74729 Level 4 Est. Patient 10:49:34 CDT Suzan [facility]-75508 Level 3 Est. Patient 10:00:25 CDT Suzan [facility]-60000 Level 3 Est. Patient 10:29:30 [facility] Est[facility] Patient 11:04:38 CDT Renzo Thornton [facility]-13317 Level 3 Est. Patient 11:15:58 CALENDERING MACHINE OPERATOR Renzo Thornton [facility]-21105 Level 3 Est. Patient 15:28:23 CALENDERING MACHINE OPERATOR [facility]24732 Level 4 Est. Patient 10:20:54 CALENDERING MACHINE OPERATOR [facility]05602 Level 3 Est. Patient 11:47:37 CALENDERING MACHINE OPERATOR Ahmet Carbajal [facility]78921 Level 3 Est. Patient 10:40:11 CALENDERING MACHINE OPERATOR hAmet Carbajal MD [facility] CPT-40512 Level 3 Est. Patient 15:07:06 CALENDERING MACHINE OPERATOR Neeraj Collins MD [facility] CPT-61707 Level 4 Est. Patient 14:45:00 CALENDERING MACHINE OPERATOR Ahmet Carbajal MD [facility] CPT-22265 Level 3 Est. Patient 13:59:59 CDT Luigi Martínez [facility] CPT-42436 Level 3 Est. Patient 18:18:53 CDT Neeraj Collins MD [facility] CPT-72213 Level 3 Est. Patient 15:50:44 CDT Vishal Hui MD [facility] CPT-51142 Level 3 Est. Patient 11:36:17 CDT Ahmet Carbajal MD [facility] CPT-85501 Level 3 Est. Patient 13:29:16 CDT Vishal Hui MD [facility] CPT-80602 Level 3 Est. Patient 14:27:52 CDT Neeraj Collins MD [facility] CPT-90926 Level 3 Est. Patient 08:56:03 CDT Luigi Martínez [facility] CPT-38216 Level 4 Est. Patient 12:11:48 CDT Fabiola Johnson [facility] CPT-37125 Level 3 New Patient 16:53:37 CDT Albert Caldera MD [facility] CPT-31156 Level 3 Est. Patient 11:25:49 CDT Renzo Thornton DO [facility] CPT-30895 Level 3 Est. Patient 15:22:01 CDT Ahmet Carbajal MD [facility] CPT-40400 Level 4 Est. Patient 09:00:51 CALENDERING MACHINE OPERATOR Vishal Hui MD [facility] CPT-15838 Level 3 Est. Patient 11:37:33 CALENDERING MACHINE OPERATOR Vishal Hui MD [facility] CPT-70163 Level 3 Est. Patient 08:41:09 CALENDERING MACHINE OPERATOR Vishal Hui MD [facility] CPT-47498 Level 4 Est. Patient 10:19:35 CALENDERING MACHINE OPERATOR Vishal Hui MD [facility] CPT-28893 Level 3 Est. Patient 13:35:45 CDT Vishal Hui MD [facility] CPT-65747 Level 4 Est. Patient 10:08:37 CDT Vishal Hui MD [facility] CPT-00226 Level 3 Est. Patient 11:22:10 CDT Vishal Hui MD [facility] CPT-32159 Level 3 Est. Patient 11:03:32 CDT Sahara Rodriguez MD [facility]-13114 Level 3 Est. Patient 09:41:35 CDT Vishal Hui MD [facility] CPT-29425 Level 3 Est. Patient 12:00:41 CDT Neeraj Collins MD [facility]-33133 Level 3 Est. Patient 09:16:24 CDT Vishal Hui MD [facility] CPT-92965 Level 4 Est. Patient 13:59:09 CDT Neeraj Collins MD [facility]-31158 Level 3 Est. Patient 15:19:43 CDT Renzo Thornton DO [facility] CPT-93481 Level 3 Est. Patient 18:10:26 CDT Sahraa Rodriguez MD [facility]-72880 Level 3 Est. Patient 14:49:50 CDT Vishal Hui MD [facility] CPT-29749 Level 4 Est. Patient 18:41:46 CDT Neeraj Collins MD [facility]-45849 Level 4 Est. Patient 09:18:38 CALENDERING MACHINE OPERATOR Vishal Hui MD [facility] CPT-12296 Level 3 Est. Patient 14:43:55 CALENDERING MACHINE OPERATOR Vishal Hui MD [facility] CPT-22920 Level 3 Est. Patient 15:26:33 CALENDERING MACHINE OPERATOR Sahara Rodriguez MD PhD [facility] CPT-79754 Level 3 Est. Patient 10:32:14 CALENDERING MACHINE OPERATOR Vishal Hui MD [facility] CPT-88913 Level 3 Est. Patient 15:12:52 CALENDERING MACHINE OPERATOR Vishal Hui MD [facility] CPT-93060 Level 4 Est. Patient 09:19:27 CDT Vishal Hui MD [facility] CPT-58337 Level 3 Est. Patient 15:53:00 CDT Renzo Thornton [facility] CPT-27888 Level 3 Est. Patient 15:50:30 CDT Renzo Thornton [facility] CPT-39011 Level 3 Est. Patient 16:55:24 CDT Vishal Hui MD [facility] Procedures Code Procedure Name Date Entry Date Standard Description CPT-88849 Venipuncture Draw Fee 10:53:17 CDT CPT-28217 EKG Trac and Interp - XRAY USE ONLY 15:59:30 CDT 09/13 CPT-14136 Chest 1V Frontal - XRAY USE ONLY 15:59:30 CDT CPT-00492 Venipuncture Draw Fee 15:44:02 CDT CPT-90743 Venipuncture Draw Fee 08:41:12 CDT CPT-65544 Abd compl w upright - XRAY USE ONLY 10:27:59 CDT 06/28 CPT-90038 Smoking Cessation counseling 11:15:58 CALENDERING MACHINE OPERATOR CPT-G0439 [facility] Annual Wellness Exam 09:30:58 CALENDERING MACHINE OPERATOR CPT-21925 TSH - LAB USE ONLY 08:50:26 CALENDERING MACHINE OPERATOR CPT-72945 CBC - LAB USE ONLY 08:50:26 CALENDERING MACHINE OPERATOR CPT-37300 Venipuncture Draw Fee 08:50:26 CALENDERING MACHINE OPERATOR CPT-67711 Abx/Therapy Injection 17:34:30 CALENDERING MACHINE OPERATOR CPT-32659 Nexplanon Removal with Reinsertion 14:09:32 CDT CPT-J7307 Nexplanon (Implant) 14:09:32 CDT CPT-OV Office Visit 14:09:32 CDT CPT-59578 UA w micro - LAB USE ONLY 16:21:13 CDT CPT-71426 Wet Mount - LAB USE ONLY 16:21:13 CDT CPT-82523 First Vx - Ix admin for Medicare patients 14:37:47 CDT CPT-61381 Fluzone Preservative Free Intramuscular Suspension 14:37 :47 CDT CPT-95569 Abx/Therapy Injection 13:54:22 CDT CPT-58916 Abx/Therapy Injection 08:47:09 CDT CPT-03565 Abx/Therapy Injection 13:29:56 CDT CPT-88336 Abx/Therapy Injection 08:36:16 CDT CPT-92148 Wet Mount - LAB USE ONLY 17:44:58 CDT CPT-40422 UA w micro - LAB USE ONLY 17:44:58 CDT CPT-82066 CMP - LAB USE ONLY 17:44:58 CDT CPT-06637 Venipuncture Draw Fee 17:44:58 CDT CPT-81278 Cervical Min 4V - XRAY USE ONLY 09:01:40 CDT CPT-60089 Chest 2V Frontal and Lat - XRAY USE ONLY 11:06:31 CDT CPT-73124 EKG Trac and Interp - XRAY USE ONLY 11:31:43 CDT 08/26 CPT-J3420 Vitamin B12 1000mcg (Cyanocobalamin) 08:10:26 CALENDERING MACHINE OPERATOR 04/12 CPT-61429 Abx/Therapy Injection 08:10:26 CALENDERING MACHINE OPERATOR CPT-G0438 Initial Annual Wellness Exam 19:01:01 CALENDERING MACHINE OPERATOR CPT-J3420 Vitamin B12 1000mcg (Cyanocobalamin) 16:57:46 CDT 08/14 CPT-96792 Recombivax HB Injection Suspension 5 MCG/0.5ML 08:37:50 CALENDERING MACHINE OPERATOR CPT-11102 Immunization Single Admin 08:37:50 CALENDERING MACHINE OPERATOR CPT-J3420 Vitamin B12 1000mcg (Cyanocobalamin) 08:32:16 CALENDERING MACHINE OPERATOR 03/11 CPT-28837 Abx/Therapy Injection 08:32:16 CALENDERING MACHINE OPERATOR CPT-27234 Chest 2V Frontal and Lat 11:46:38 CALENDERING MACHINE OPERATOR CPT-55512 Venipuncture Draw Fee 09:12:45 CALENDERING MACHINE OPERATOR CPT-J3420 Vitamin B12 1000mcg (Cyanocobalamin) 08:50:15 CALENDERING MACHINE OPERATOR 02/08 CPT-79536 Abx/Therapy Injection 08:50:15 CALENDERING MACHINE OPERATOR CPT-Cryo Cryotherapy 10:19:35 CALENDERING MACHINE OPERATOR CPT-000 Give Appropriate Flu Vaccine 09:22:16 CDT CPT-J3420 Vitamin B12 1000mcg (Cyanocobalamin) 19:08:57 CDT 01/11 CPT-64371 Abx/Therapy Injection 19:08:57 CDT CPT-J3420 Vitamin B12 1000mcg (Cyanocobalamin) 08:19:08 CDT 12/11 CPT-87869 Abx/Therapy Injection 08:19:08 CDT CPT-J3420 Vitamin B12 1000mcg (Cyanocobalamin) 14:48:00 CDT 11/09 CPT-78258 Abx/Therapy Injection 14:47:59 CDT CPT-J3420 Vitamin B12 1000mcg (Cyanocobalamin) 08:34:04 CDT 10/09 CPT-10633 Abx/Therapy Injection 08:34:04 CDT CPT-J3420 Vitamin B12 1000mcg (Cyanocobalamin) 09:18:52 CDT 09/11 CPT-43851 Abx/Therapy Injection 09:18:52 CDT CPT-J3420 Vitamin B12 1000mcg (Cyanocobalamin) 08:35:44 CDT 09/04 CPT-53991 Abx/Therapy Injection 08:35:44 CDT CPT-60746 Immunization Single Admin 11:07:16 CDT CPT-50773 Hepatitis B adult IM 11:07:16 CDT CPT-J3420 Vitamin B12 1000mcg (Cyanocobalamin) 11:00:49 CDT 08/28 CPT-J1040 Depo Medrol 80 mg (Methyl Prednisolone Acetate) 11:00: 49 CDT CPT-02905 Abx/Therapy Injection 11:00:49 CDT CPT-J1040 Depo Medrol 80 mg (Methyl Prednisolone Acetate) 09:16: 23 CDT CPT-J3420 Vitamin B12 1000mcg (Cyanocobalamin) 08:27:05 CDT 08/20 CPT-47168 Abx/Therapy Injection 08:27:05 CDT CPT-28498 Recombivax HB Injection Suspension 5 MCG/0.5ML 10:00:41 CDT CPT-27771 Administration single or combination vaccine inc oral 10 :00:41 CDT CPT-70787 Sono transvag pelvis non OB uterus ovaries cervix 16:36: 57 CDT CPT-31455 LS spine comp w obliq 09:50:55 CALENDERING MACHINE OPERATOR CPT-45371 Abd compl w upright 09:50:55 CALENDERING MACHINE OPERATOR CPT-J1100 Decadron 4mg (Dexamethasone) 15:51:24 CALENDERING MACHINE OPERATOR CPT-J1030 Depo Medrol 40 mg (Methyl Prednisolone Acetate) 15:51: 24 CALENDERING MACHINE OPERATOR CPT-10991 Abx/Therapy Injection 15:51:24 CALENDERING MACHINE OPERATOR CPT-J1100 Decadron 4mg (Dexamethasone) 15:26:33 CALENDERING MACHINE OPERATOR CPT-J1030 Depo Medrol 40 mg (Methyl Prednisolone Acetate) 15:26: 33 CALENDERING MACHINE OPERATOR CPT-21464 Sono retroperitoneal complete kidneys and bladder 17:15: 30 CDT CPT-10571 Abd compl w upright 16:09:25 CDT CPT-J1100 Decadron 8mg (Dexamethasone) 17:07:57 CDT CPT-74112 Abx/Therapy Injection 17:07:57 CDT CPT-J1100 Decadron 8mg (Dexamethasone) 16:55:24 CDT CPT-55278 Chest 2V Frontal and Lat 16:32:44 CDT
--- OUTSIDE RECORDS SUMMARY | 2016-11-04 13:08 | XMS REPORT | Clinical Summary ---
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 Suzan Boo [...] MD Health screening ICD-V70.0 Inactive Suzan Boo FLIGHT SIMULATOR TEACHER Sinus tachycardia ICD-427.89 Jim Boo APRN Smoker/tobacco [...] % OINT apply twice a day MUPIROCIN 77784203467 No Longer Active Suzan Boo APRN Active BACTRIM DS 800-160 MG TABS 1 twice a day SULFAMETHOXAZOLE-TRIMETHOPRIM 48452115815 No Longer Active Suzan Boo APRN Active DIFLUCAN 150 MG TABS 1 by mouth for yeast FLUCONAZOLE 09961797292 No Longer Active Suzan Boo APRN Active AMITIZA 8 MCG ORAL CAPS 1 capsule twice daily LUBIPROSTONE 43406952421 Active Sheila Calderon LPN Active LINZESS 290 MCG ORAL CAPS 1 tab 30 min prior to first meal each day. LINACLOTIDE 21189925984 No Longer Active Sheila Calderon LPN Active AMITIZA 8 MCG ORAL CAPS 1 tab BID LUBIPROSTONE 02036726331 No Longer Active Lynda Xiao LPN Active LACTULOSE 10 GM/15ML ORAL SOLN 30mL oral BID for IBS-C LACTULOSE 53168334633 Active Suzan Boo APRN Active TESSALON PERLES 100 MG CAPS 1 three times a day as needed for cough BENZONATATE 57905133518 No Longer Active Suzan Boo APRN Active BACTRIM DS 800-160 MG TABS 1 twice a day SULFAMETHOXAZOLE-TRIMETHOPRIM 43313198770 No Longer Active Suzan Boo APRN Active DIFLUCAN 150 MG TABS 1 by mouth for yeast FLUCONAZOLE 16692976597 No Longer Active Suzan Boo APRN Active EQ NICOTINE 21 MG/24HR TRANS PT24 Apply daily to stop smoking NICOTINE 59907923129 No Longer Active Suzan Boo APRN Active PREDNISONE 10 MG TABS 2 daily for 5 days then 1 daily for 5 days PREDNISONE 22173305453 No Longer Active Suzan Boo APRN Active LEVAQUIN 500 MG TABS 1 daily for infection LEVOFLOXACIN 72614521327 No Longer Active Suzan Boo APRN Active TROPICAMIDE 0.5 % OPHTH SOLN 1 drop PRN eye spasms TROPICAMIDE 12598843913 No Longer Active Suzan Boo APRN Active PREDNISONE 20 MG TAB 1 tablet daily x 4 days PREDNISONE 67313037602 No Longer Active Suzan Boo APRN Active ACETAMINOPHEN-CODEINE 120-12 MG/5ML SOLN 5 ml by mouth every 4-6 hours if needed for cough ACETAMINOPHEN-CODEINE 25190795654 No Longer Active Suzan Boo APRN Active KEFLEX 500 MG CAP 1 po qid CEPHALEXIN 76133483313 No Longer Active Suzan Boo APRN Active FLOVENT HFA 110 MCG/ACT AERO 2 puffs inhaled b.i.d. FLUTICASONE PROPIONATE HFA 37347062852 Active Renzo Thornton DO Active RISPERDAL 4 MG ORAL TABS 1 tab at bedtime RISPERIDONE 41817493824 Active Samantha Rothman RMA Active ZOFRAN 4 MG TABS 1 po q6hr PRN Nausea ONDANSETRON HCL No Longer Active Suzan Boo APRN Active FLUTICASONE PROPIONATE 50 MCG/ACT SUSP 2 sprays each nostril daily before bed. FLUTICASONE PROPIONATE 94553322214 No Longer Active Suzan Boo APRN Active ASPIRIN 325 MG ORAL TABS 1 tab q.d ASPIRIN 87538476931 No Longer Active Suzan Boo APRN Active HALOPERIDOL 10 MG ORAL TABS 1 tab q.d HALOPERIDOL 35012687712 No Longer Active Suzan Boo APRN Active GUAIFENESIN-CODEINE 100-10 MG/5ML SYRP 5ml every 4 to 6 hours as needed for cough GUAIFENESIN-CODEINE 64048579012 No Longer Active Suzan Boo APRN Active ZITHROMAX Z-EARNEST 250 MG TABS 2 today and then 1 daily for 4 days AZITHROMYCIN 64037705611 No Longer Active Suzan Boo APRN Active CLONAZEPAM 1 MG ORAL TABS 1 twice a day and an additional 1 tablet every other day as needed for pseudoseizures or anxiety CLONAZEPAM 15547136066 Active Suzan Boo APRN Active HYDROCODONE-ACETAMINOPHEN 5-325 MG ORAL TABS 1 tab two times a day HYDROCODONE-ACETAMINOPHEN 70156844061 No Longer Active Ahmet Carbajal MD Active LAMICTAL 100 MG ORAL TABS 1 tab 2 times qd. LAMOTRIGINE 51524495455 Active Ahmet Carbajal MD Active PREDNISONE 20 MG TABS 2 daily for 5 days then 1 daily for 5 days PREDNISONE 94761585412 No Longer Active Ahmet Carbajal MD Active FLUTICASONE PROPIONATE 50 MCG/ACT SUSP 1 to 2 sprays each nostril daily for allergies FLUTICASONE PROPIONATE 21414685877 Active Tila Valenzuela Active BENADRYL 25 MG CAP 4 po at bedtime for insomnia DIPHENHYDRAMINE HCL 29752381516 No Longer Active Ahmet Carbajal MD Active ADVAIR DISKUS 250-50 MCG/DOSE INH AEPB 1 puff twice a day for asthma FLUTICASONE-SALMETEROL 97044846552 No Longer Active Ahmet Carbajal MD Active KLONOPIN 1 MG ORAL TABS 1 tab po TID CLONAZEPAM 67858517452 No Longer Active Ahmet Carbajal MD Active ABILIFY MAINTENA 400 MG IM SUSR 400mg injection every 26 days ARIPIPRAZOLE 68647685853 No Longer Active Ahmet Carbajal MD Active TRAMADOL HCL 50 MG TABS 1/2-1 tab TID PRN TRAMADOL HCL 43196922925 No Longer Active Ahmet Carbajal MD Active BACTRIM DS 800-160 MG TABS 1 twice a day SULFAMETHOXAZOLE- TRIMETHOPRIM 49036465221 No Longer Active Ahmet Carbajal MD Active PROAIR HFA 108 (90 BASE) MCG/ACT AERS 2 puffs four times a day as needed 2016 /11/14 ALBUTEROL SULFATE 07378941535 Active Honey Wenstevenson FLIGHT SIMULATOR TEACHER Active MONISTAT 7 COMBO PACK WOODROW 100 & 2 MG-% (9GM) VAG KIT 1 applicatorful per vagina q pm x 7 MICONAZOLE NITRATE 58638740583 No Longer Active Ahmet Carbajal MD Active FLAGYL 500 MG TAB 1 tablet by mouth bid METRONIDAZOLE 84210629922 No Longer Active Ahmet Carbajal MD Active OXYCODONE HCL ER 10 MG ORAL T12A 1/2 tab by mouth every 4 hours prn OXYCODONE HCL 41573482729 No Longer Active Ahmet Carbajal MD Active METHYLPREDNISOLONE 4 MG ORAL TABS po daily METHYLPREDNISOLONE 53112137696 No Longer Active Ahmet Carbajal MD Active LEVOFLOXACIN 500 MG ORAL TABS po daily LEVOFLOXACIN 88313545648 No Longer Active Ahmet Carbajal MD Active VIIBRYD 10 MG ORAL TABS Take 1 tablet once a day VILAZODONE HCL 40019004343 No Longer Active Ahmet Carbajal MD Active TOPAMAX 50 MG ORAL TABS 1 tab twice daily TOPIRAMATE 70575395149 No Longer Active Ahmet Carbajal MD Active DICLOFENAC SODIUM 50 MG TBEC 1 tablet by mouth four times daily PRN Pain 2015 DICLOFENAC SODIUM 07995777221 No Longer Active Ahmet Carbajal MD Active ADZENYS XR-ODT 6.3 MG ORAL TBED 1 tab po daily for ADHD AMPHETAMINE 72738452662 No Longer Active Ahmet Carbajal MD Active CHANTIX 1 MG TABS 1 twice a day to help quit smoking VARENICLINE TARTRATE 99510943347 No Longer Active Dipika Burgos MD Active CHANTIX STARTING MONTH EARNEST 0.5 MG X 11 & 1 MG X 42 TABS take as directed 2015 VARENICLINE TARTRATE 30041160698 No Longer Active Dipika Burgos MD Active TESSALON PERLES 100 MG CAP 1 to 2 tablets by mouth 3 times daily as needed for cough BENZONATATE 41869550625 No Longer Active Jillina Frazell FLIGHT SIMULATOR TEACHER Active IMITREX 50 MG ORAL TABS 0.5 po x 1 PRN Headache. May repeat dose x 1 in 2 hours if needed SUMATRIPTAN SUCCINATE 77976130312 Active Ahmet Carbajal MD Active HYDROCODONE-ACETAMINOPHEN 5-325 MG TABS 1 to 2 four times a day as needed for pain use until can be seen by specialist HYDROCODONE- ACETAMINOPHEN 25719174764 No Longer Active Vishal Hui MD Active PROAIR HFA 108 (90 BASE) MCG/ACT AERS 2 puffs four times a day as needed 2015 ALBUTEROL SULFATE 23128121731 No Longer Active Vishal Hui MD Active PREDNISONE 20 MG TABS 2 daily for 5 days then 1 daily for 5 days PREDNISONE 71729216964 No Longer Active Vishal Hui MD Active ZITHROMAX Z-EARNEST 250 MG TABS 2 today and then 1 daily for 4 days AZITHROMYCIN 95458093796 No Longer Active Vishal Hui MD Active DICLOFENAC POTASSIUM TABS Take 1 tablet twice a day (pt. is not sure of the dose.) DICLOFENAC POTASSIUM TABS 14690686019 No Longer Active Vishal Hui MD Active VERAPAMIL HCL ER 120 MG ORAL CR-TABS Take 1 tablet by mouth twice a day. VERAPAMIL HCL 37255236527 Active Vishal Hui MD Active FLAGYL 500 MG TAB 1 tablet by mouth bid METRONIDAZOLE 82248563124 No Longer Active Vishal Hui MD Active VALIUM 5 MG TAB Take 1-2 tablets daily DIAZEPAM 37165815585 No Longer Active Fabiola Johnson APRN Active METOPROLOL TARTRATE 25 MG ORAL TABS 1/2 tablet twice daily for heart rate and blood pressure METOPROLOL TARTRATE 83469296313 No Longer Active Fabiola Johnson APRN Active MIRALAX ORAL POWD 17GMS DAILY IN WATER POLYETHYLENE GLYCOL 3350 11240262608 Active TAMARA Casey Active MIRALAX PACK 1 po qd PRN Constipation POLYETHYLENE GLYCOL 3350 12354557083 No Longer Active Ahmet Carbajal MD Active MINIPRESS 2 MG CAPS 4 cap po at night PRAZOSIN HCL 31394136715 No Longer Active Ahmet Carbajal MD Active PIROXICAM 20 MG CAPS 1 cap po qd PRN Pain PIROXICAM 36311513876 No Longer Active Ahmet Carbajal MD Active TRAMADOL HCL 50 MG TABS 1-2 po TID PRN Pain TRAMADOL HCL 81281969226 No Longer Active Ahmet Carbajal MD Active METOPROLOL TARTRATE 50 MG TAB 1 po bid METOPROLOL TARTRATE 06802077071 No Longer Active Ahmet Carbajal MD Active ABILIFY 15 MG ORAL TABS 1 tab daily ARIPIPRAZOLE 40840274680 No Longer Active Ahmet Carbajal MD Active PROZAC 20 MG ORAL CAPS 1 tab daily FLUOXETINE HCL 05295248852 No Longer Active Ahmet Carbajal MD Active AMBIEN 5 MG ORAL TABS 1 tab at bedtime ZOLPIDEM TARTRATE 82565823547 No Longer Active Ahmet Carbajal MD Active PREDNISONE 20 MG TAB 2 tabs daily for 4 days, 1 tab daily for 4 days, 1/2 tab daily for 4 days PREDNISONE 66587809744 No Longer Active Ahmet Carbajal MD Active KEFLEX 500 MG CAP 1 po TID x 10 days CEPHALEXIN 98132627855 No Longer Active Vishal Hui MD Active SAPHRIS 5 MG SUBL 1 po bid ASENAPINE MALEATE 28430051070 No Longer Active Luigi Martínez APRN Active LATUDA 80 MG TABS Take one by mouth daily LURASIDONE HCL 29852718013 No Longer Active Jillina Fralebron FLIGHT SIMULATOR TEACHER Active AMLODIPINE BESYLATE 5 MG TABS 1 tablet by mouth daily AMLODIPINE BESYLATE 69710020435 No Longer Active Luigi Martínez APRN Active AMITRIPTYLINE HCL 100 MG TAB one at hs AMITRIPTYLINE HCL 36524605721 No Longer Active Vishal Hui MD Active TRAZODONE HCL 100 MG TAB take 1 at bedtime TRAZODONE HCL 45782308912 No Longer Active Vishal Hui MD Active VYVANSE 40 MG CAPS 1 daily, LISDEXAMFETAMINE DIMESYLATE 77393170731 No Longer Active Vishal Hui MD Active IBUPROFEN 600 MG TAB 1 po TID PRN IBUPROFEN 46561498824 No Longer Active Vishal Hui MD Active PROZAC 20 MG CAP Take one by mouth daily FLUOXETINE HCL 43626293765 No Longer Active Vishal Hui MD Active BACTRIM DS 800-160 MG TABS 1 pill by mouth twice daily SULFAMETHOXAZOLE-TRIMETHOPRIM 18036774783 No Longer Active Sahara Rodriguez MD PhD Active DIFLUCAN 150 MG TAB 1 tablet by mouth daily FLUCONAZOLE 16257827067 No Longer Active Vishal Hui MD Active TIZANIDINE HCL 4 MG TABS 1 po q6hr PRN Muscle Spasm/Back Pain TIZANIDINE HCL 63925323203 Active TAMARA Casey Active CLINDAMYCIN HCL 150 MG CAPS 1 four times a day CLINDAMYCIN HCL 74169992886 No Longer Active Neeraj Collins MD Active KEFLEX 500 MG ORAL CAPS 1 cap QID by mouth CEPHALEXIN 23980846120 No Longer Active Neeraj Collins MD Active DIFLUCAN 150 MG TABS 1 pill every other day x 2 doses FLUCONAZOLE 84289745673 No Longer Active Sahara Rodriguez MD PhD Active MELATONIN 3 MG CAPS 2 po q hs MELATONIN 57713577729 No Longer Active Sahara Rodriguez MD PhD Active MULTIVITAMINS CAPS Take one by mouth daily MULTIPLE VITAMIN 30421803816 No Longer Active Sahara Rodriguez MD PhD Active BACTRIM DS 800-160 MG TAB 1 tab by mouth twice daily TRIMETHOPRIM-SULFAMETHOXAZOLE 59620112798 No Longer Active Sahara Rodriguez MD PhD Active [facility] PROBIOTIC ORAL CHEW 2 daily po PROBIOTIC PRODUCT 83128195613 No Longer Active Sahara Rodriguez MD PhD Active BACTRIM DS 800-160 MG TABS 1 po BID x 7 days SULFAMETHOXAZOLE-TRIMETHOPRIM 74760892498 No Longer Active Vishal Hui MD Active CHANTIX STARTING MONTH EARNEST 0.5 MG X 11 & 1 MG X 42 TABS 0.5mg daily for 3 days , then 0.5mg BID for 4 days, then 1mg BID VARENICLINE TARTRATE 71627041055 No Longer Active TAMARA Gray Active VERAPAMIL HCL CR 120 MG TAB CR 1 po bid VERAPAMIL HCL 96347981704 No Longer Active Vishal Hui MD Active METOPROLOL SUCCINATE 50 MG TB24 1 tablet by mouth daily METOPROLOL SUCCINATE 12409310383 No Longer Active Vishal Hui MD Active SAPHRIS 10 MG SUBL 1 tab po bid ASENAPINE MALEATE 80970062925 No Longer Active Vishal Hui MD Active LISINOPRIL 20 MG TABS 1 tab po qd LISINOPRIL 17398719369 No Longer Active Vishal Hui MD Active LATUDA 20 MG TABS Take one by mouth daily LURASIDONE HCL 09669578635 No Longer Active Vishal Hui MD Active TRAZODONE HCL 50 MG TABS 1/2 tab po qd prn for anxiety TRAZODONE HCL 66870291098 No Longer Active Vishal Hui MD Active OMEPRAZOLE 20 MG TBEC 1 po q a.m. 30min prior to first food intake OMEPRAZOLE 66497213891 Active TAMARA Casey Active RANITIDINE HCL 150 MG CAPS 1 twice a day RANITIDINE HCL 36883542767 Active Lynda Xiao LPN Active LINZESS 290 MCG CAPS Take one by mouth daily LINACLOTIDE 49148371350 No Longer Active Vishal Hui MD Active SAPHRIS 5 MG SUBL 1 tab po qd ASENAPINE MALEATE 59427011365 No Longer Active Vishal Hui MD Active ZALEPLON 10 MG CAPS 1 cap po every other night ZALEPLON 17571193778 No Longer Active Vishal Hui MD Active LYRICA 50 MG CAPS 1 tab po TID PREGABALIN 33776813531 No Longer Active Vishal Hui MD Active LORATADINE 10 MG TABS 1 tab po qd LORATADINE 26179970573 No Longer Active Vishal Hui MD Active VERAPAMIL HCL ER 180 MG CR-TABS 1 tab po bid VERAPAMIL HCL 28630988916 No Longer Active Vishal Hui MD Active MIRALAX POWD 1 capfull once daily POLYETHYLENE GLYCOL 3350 49067048906 No Longer Active Vishal Hui MD Active PREDNISONE 20 MG TABS 1 tab po qd PREDNISONE 00106881810 No Longer Active Renzo Thornton DO Active LEVOFLOXACIN 500 MG TABS 1 tab po qd LEVOFLOXACIN 12822008800 No Longer Active Renzo Thornton DO Active BUSPIRONE HCL 15 MG TABS 1 tab po TID BUSPIRONE HCL 21491856044 No Longer Active Renzo Thornton DO Active BENZTROPINE MESYLATE 1 MG TABS 1 tab po qd BENZTROPINE MESYLATE 87778041244 No Longer Active Renzo Thornton DO Active ATENOLOL 25 MG TABS 1 tab po qd ATENOLOL 74575911768 No Longer Active Renzo Thornton DO Active ESCITALOPRAM OXALATE 20 MG TABS 1 tab po qd ESCITALOPRAM OXALATE 39360467348 No Longer Active Renzo Thornton DO Active ADVAIR DISKUS 250-50 MCG/DOSE AEPB 1 puff BID FLUTICASONE-SALMETEROL 58298088296 No Longer Active Renzo Thornton DO Active PREDNISONE 20 MG TAB 2 tabs daily for 3 days, 1 tab daily for 3 days, 1/2 tab daily for 2 days PREDNISONE 07737893104 No Longer Active Vishal Hui MD Active CEFDINIR 300 MG CAPS by mouth twice a day CEFDINIR 67125917533 No Longer Active Vishal Hui MD Active LANSOPRAZOLE 30 MG CPDR 1 cap po qd LANSOPRAZOLE 32415503332 No Longer Active Vishal Hui MD Active BACLOFEN 20 MG TABS 1 tab po tid BACLOFEN 30783525525 No Longer Active Vishal Hui MD Active ADVAIR DISKUS 250-50 MCG/DOSE AEPB 1 puff BID ADVAIR DISKUS 250-50 MCG/DOSE AEPB FLUTICASONE-SALMETEROL Inactive ESCITALOPRAM OXALATE 20 MG TABS 1 tab po qd ESCITALOPRAM OXALATE 20 MG TABS 425729 ESCITALOPRAM OXALATE Inactive ATENOLOL 25 MG TABS 1 tab po qd ATENOLOL 25 MG TABS 638154 ATENOLOL Inactive BENZTROPINE MESYLATE 1 MG TABS 1 tab po qd BENZTROPINE MESYLATE 1 MG TABS 421419 BENZTROPINE MESYLATE Inactive BUSPIRONE HCL 15 MG TABS 1 tab po TID BUSPIRONE HCL 15 MG TABS 191040 BUSPIRONE HCL Inactive LEVOFLOXACIN 500 MG TABS 1 tab po qd LEVOFLOXACIN 500 MG TABS 340805 LEVOFLOXACIN Inactive PREDNISONE 20 MG TABS 1 tab po qd PREDNISONE 20 MG TABS 149984 PREDNISONE Inactive MIRALAX POWD 1 capfull once daily MIRALAX POWD 101003 POLYETHYLENE GLYCOL 3350 Inactive VERAPAMIL HCL ER 180 MG CR-TABS 1 tab po bid VERAPAMIL HCL ER 180 MG CR-TABS VERAPAMIL HCL Inactive LORATADINE 10 MG TABS 1 tab po qd LORATADINE 10 MG TABS 687157 LORATADINE Inactive LYRICA 50 MG CAPS 1 tab po TID LYRICA 50 MG CAPS PREGABALIN Inactive ZALEPLON 10 MG CAPS 1 cap po every other night ZALEPLON 10 MG CAPS 555778 ZALEPLON Inactive SAPHRIS 5 MG SUBL 1 tab po qd SAPHRIS 5 MG SUBL ASENAPINE MALEATE Inactive TRAZODONE HCL 50 MG TABS 1/2 tab po qd prn for anxiety TRAZODONE HCL 50 MG TABS 384783 TRAZODONE HCL Inactive LATUDA 20 MG TABS Take one by mouth daily LATUDA 20 MG TABS LURASIDONE HCL Inactive LISINOPRIL 20 MG TABS 1 tab po qd LISINOPRIL 20 MG TABS 529845 LISINOPRIL Inactive SAPHRIS 10 MG SUBL 1 [...] twice daily BACTRIM DS 800-160 MG TAB 411454 TRIMETHOPRIM-SULFAMETHOXAZOLE Inactive MULTIVITAMINS CAPS Take one by mouth daily MULTIVITAMINS CAPS MULTIPLE VITAMIN Inactive MELATONIN 3 MG CAPS 2 po q hs MELATONIN 3 MG CAPS 602032 MELATONIN Inactive KEFLEX 500 MG ORAL CAPS 1 cap QID by mouth KEFLEX 500 MG ORAL CAPS 141749 CEPHALEXIN Inactive CLINDAMYCIN HCL 150 MG CAPS 1 four times a day CLINDAMYCIN HCL 150 MG CAPS 517947 CLINDAMYCIN HCL Inactive DIFLUCAN 150 MG TAB 1 tablet by mouth daily DIFLUCAN 150 MG TAB 117801 FLUCONAZOLE Inactive PROZAC 20 MG CAP Take one by mouth daily PROZAC 20 MG CAP 775415 FLUOXETINE HCL Inactive IBUPROFEN 600 MG TAB 1 po TID PRN IBUPROFEN 600 MG TAB 407317 IBUPROFEN Inactive VYVANSE 40 MG CAPS 1 daily, VYVANSE 40 MG CAPS LISDEXAMFETAMINE DIMESYLATE Inactive TRAZODONE HCL 100 MG TAB take 1 at bedtime TRAZODONE HCL 100 MG TAB 792009 TRAZODONE HCL Inactive AMITRIPTYLINE HCL 100 MG TAB one at hs AMITRIPTYLINE HCL 100 MG TAB 515312 AMITRIPTYLINE HCL Inactive AMLODIPINE BESYLATE 5 MG TABS 1 tablet by mouth daily AMLODIPINE BESYLATE 5 MG TABS 344946 AMLODIPINE BESYLATE Inactive LATUDA 80 MG TABS Take one by mouth daily LATUDA 80 MG TABS LURASIDONE HCL Inactive SAPHRIS 5 MG SUBL 1 po bid SAPHRIS 5 MG SUBL ASENAPINE MALEATE Inactive PREDNISONE 20 MG TAB 2 tabs daily for 4 days, 1 tab daily for 4 days, 1/2 tab daily for 4 days PREDNISONE 20 MG TAB 967485 PREDNISONE Inactive AMBIEN 5 MG ORAL TABS 1 tab at bedtime AMBIEN 5 MG ORAL TABS 971542 ZOLPIDEM TARTRATE Inactive PROZAC 20 MG ORAL CAPS 1 tab daily PROZAC 20 MG ORAL CAPS 137217 FLUOXETINE HCL Inactive ABILIFY 15 MG ORAL TABS 1 tab daily ABILIFY 15 MG ORAL TABS 239646 ARIPIPRAZOLE Inactive METOPROLOL TARTRATE 50 MG TAB 1 po bid METOPROLOL TARTRATE 50 MG TAB 872247 METOPROLOL TARTRATE Inactive TRAMADOL HCL 50 MG TABS 1-2 po TID PRN Pain TRAMADOL HCL 50 MG TABS 640717 TRAMADOL HCL Inactive PIROXICAM 20 MG CAPS 1 cap po qd PRN Pain PIROXICAM 20 MG CAPS 835872 PIROXICAM Inactive MINIPRESS 2 MG CAPS 4 cap po at night MINIPRESS 2 MG CAPS 884682 PRAZOSIN HCL Inactive MIRALAX PACK 1 po qd PRN Constipation MIRALAX PACK 346842 POLYETHYLENE GLYCOL 3350 Inactive METOPROLOL TARTRATE 25 MG ORAL TABS 1/2 tablet twice daily for heart rate and blood pressure METOPROLOL TARTRATE 25 MG ORAL TABS 787980 METOPROLOL TARTRATE Inactive VALIUM 5 MG TAB Take 1-2 tablets daily VALIUM 5 MG TAB 287258 DIAZEPAM Inactive FLAGYL 500 MG TAB 1 tablet by mouth bid FLAGYL 500 MG TAB 557700 METRONIDAZOLE Inactive DICLOFENAC POTASSIUM TABS Take 1 tablet twice a day (pt. is not sure of the dose.) DICLOFENAC POTASSIUM TABS DICLOFENAC POTASSIUM TABS Inactive ZITHROMAX Z-EARNEST 250 MG TABS 2 today and then 1 daily for 4 days ZITHROMAX Z-EARNEST 250 MG TABS 9624119 AZITHROMYCIN Inactive PREDNISONE 20 MG TABS 2 daily for 5 days then 1 daily for 5 days PREDNISONE 20 MG TABS 570626 PREDNISONE Inactive PROAIR HFA 108 (90 BASE) MCG/ACT AERS 2 puffs four times a day as needed 2015 PROAIR HFA 108 (90 BASE) MCG/ACT AERS ALBUTEROL SULFATE Inactive HYDROCODONE-ACETAMINOPHEN 5-325 MG TABS 1 to 2 four times a day as needed for pain use until can be seen by specialist HYDROCODONE- ACETAMINOPHEN 5-325 MG TABS 280920 HYDROCODONE-ACETAMINOPHEN Inactive TESSALON PERLES 100 MG CAP 1 to 2 tablets by mouth 3 times daily as needed for cough TESSALON PERLES 100 MG CAP 596747 BENZONATATE Inactive CHANTIX STARTING MONTH EARNEST 0.5 [...] Pain 2015 DICLOFENAC SODIUM 50 MG TBEC 900590 DICLOFENAC SODIUM Inactive TOPAMAX 50 MG ORAL TABS 1 tab twice daily TOPAMAX 50 MG ORAL TABS 886227 TOPIRAMATE Inactive VIIBRYD 10 MG ORAL TABS Take 1 tablet once a day VIIBRYD 10 MG ORAL TABS VILAZODONE HCL Inactive LEVOFLOXACIN 500 MG ORAL TABS po daily LEVOFLOXACIN 500 MG ORAL TABS 713024 LEVOFLOXACIN Inactive METHYLPREDNISOLONE 4 MG ORAL TABS po daily METHYLPREDNISOLONE 4 MG ORAL TABS 636308 METHYLPREDNISOLONE Inactive OXYCODONE HCL ER 10 MG ORAL T12A 1/2 tab by mouth every 4 hours prn OXYCODONE HCL ER 10 MG ORAL T12A OXYCODONE HCL Inactive FLAGYL 500 MG TAB 1 tablet by mouth bid FLAGYL 500 MG TAB 850931 METRONIDAZOLE Inactive MONISTAT 7 COMBO PACK WOODROW 100 & 2 MG-% (9GM) VAG KIT 1 applicatorful per vagina q pm x 7 MONISTAT 7 COMBO PACK WOODRWO 100 & 2 MG-% (9GM) VAG KIT MICONAZOLE NITRATE Inactive BACTRIM DS 800-160 MG TABS 1 twice a day BACTRIM DS 800-160 MG TABS 619620 SULFAMETHOXAZOLE-TRIMETHOPRIM Inactive TRAMADOL HCL 50 MG TABS 1/2-1 tab TID PRN TRAMADOL HCL 50 MG TABS 824832 TRAMADOL HCL Inactive ABILIFY MAINTENA 400 MG IM SUSR 400mg injection every 26 days ABILIFY MAINTENA 400 MG IM SUSR ARIPIPRAZOLE Inactive KLONOPIN 1 MG ORAL TABS 1 tab po TID KLONOPIN 1 MG ORAL TABS 499062 CLONAZEPAM Inactive ADVAIR DISKUS 250-50 MCG/DOSE INH AEPB 1 puff twice a day for asthma ADVAIR DISKUS 250-50 MCG/DOSE INH AEPB FLUTICASONE- SALMETEROL Inactive BENADRYL 25 MG CAP 4 po at bedtime for insomnia BENADRYL 25 MG CAP DIPHENHYDRAMINE HCL Inactive PREDNISONE 20 MG TABS 2 daily for 5 days then 1 daily for 5 days PREDNISONE 20 MG TABS 120815 PREDNISONE Inactive HYDROCODONE-ACETAMINOPHEN 5-325 MG ORAL TABS 1 tab two times a day HYDROCODONE-ACETAMINOPHEN 5-325 MG ORAL TABS 257243 HYDROCODONE-ACETAMINOPHEN Inactive ZITHROMAX Z-EARNEST 250 MG TABS 2 today and then 1 daily for 4 days ZITHROMAX Z-EARNEST 250 MG TABS 4978768 AZITHROMYCIN Inactive GUAIFENESIN-CODEINE 100-10 MG/5ML SYRP 5ml every 4 to 6 hours as needed for cough GUAIFENESIN-CODEINE 100-10 MG/5ML SYRP 485275 GUAIFENESIN-CODEINE Inactive HALOPERIDOL 10 MG ORAL TABS 1 tab q.d HALOPERIDOL 10 MG ORAL TABS 729714 HALOPERIDOL Inactive ASPIRIN 325 MG ORAL TABS 1 tab q.d ASPIRIN 325 MG ORAL TABS 159243 ASPIRIN Inactive FLUTICASONE PROPIONATE 50 MCG/ACT SUSP 2 sprays each nostril daily before bed. FLUTICASONE PROPIONATE 50 MCG/ACT SUSP 8498992 FLUTICASONE PROPIONATE Inactive ZOFRAN 4 MG TABS 1 po q6hr PRN Nausea ZOFRAN 4 MG TABS 445384 ONDANSETRON HCL Inactive KEFLEX 500 MG CAP 1 po qid KEFLEX 500 MG CAP 592131 CEPHALEXIN Inactive ACETAMINOPHEN-CODEINE 120-12 MG/5ML SOLN 5 ml by mouth every 4-6 hours if needed for cough ACETAMINOPHEN-CODEINE 120-12 MG/5ML SOLN 218029 ACETAMINOPHEN-CODEINE Inactive PREDNISONE 20 MG TAB 1 tablet daily x 4 days PREDNISONE 20 MG TAB 045684 PREDNISONE Inactive TROPICAMIDE 0.5 % OPHTH SOLN 1 drop PRN eye spasms TROPICAMIDE 0.5 % OPHTH SOLN 937425 TROPICAMIDE Inactive LEVAQUIN 500 MG TABS 1 daily for infection LEVAQUIN 500 MG TABS 667624 LEVOFLOXACIN Inactive PREDNISONE 10 MG TABS 2 daily for 5 days then 1 daily for 5 days PREDNISONE 10 MG TABS 656843 PREDNISONE Inactive EQ NICOTINE 21 MG/24HR TRANS [...] for cough TESSALON PERLES 100 MG CAPS 166073 BENZONATATE Inactive AMITIZA 8 MCG ORAL CAPS [...] twice a day MUPIROCIN 2 % OINT 787431 MUPIROCIN Inactive CEFDINIR 300 MG CAPS by mouth twice a day CEFDINIR 300 MG CAPS 087576 CEFDINIR Inactive PREDNISONE 20 MG TAB 2 tabs daily for 3 days, 1 tab daily for 3 days, 1/2 tab daily for 2 days PREDNISONE 20 MG TAB 739152 PREDNISONE Inactive BACTRIM DS 800-160 MG TABS [...] x 10 days KEFLEX 500 MG CAP 028013 CEPHALEXIN Inactive Advance Directives Directive Description Start [...] % 11.0-15.0 platelet count 443 THOUSAND/UL 10*3/mm3 613-974 8558/03/01 mean platelet volume 8.2 fL 7.5-12.5 leukocyte [...] % 11.0-15.0 platelet count 349 THOUSAND/UL 10*3/mm3 519-535 8451/04/12 mean platelet volume 8.4 fL 7.5-12.5 Lab [...] 369 10^3/MM^3 10*3/mm3 142-424 Lab Report: Chlamydia/GC APTIMA/[id number] - Lab chlamydia DNA probe NOT DETECTED NOT DETECTED Lab Report: Chlamydia/GC APTIMA/[id number] - Microbiology Neisseria gonorrhoeae DNA probe NOT DETECTED NOT DETECTED Lab Report: Chlamydia/GC APTIMA/[id number], Urinalysis, Complete, with Reflex ... - Lab chlamydia DNA probe NOT DETECTED NOT DETECTED Lab Report: Chlamydia/GC APTIMA/[id number], Urinalysis, Complete, with Reflex ... - Microbiology Neisseria gonorrhoeae DNA probe NOT DETECTED NOT DETECTED Lab Report: Chlamydia/GC APTIMA/74943, Urinalysis, Complete, with Reflex ... - Urinalysis microalbumin/total urine volume 2 mg/L Units converted. See lab report for original value. microalbumin/creatinine ratio, urine 9 MCG/MG CREAT mg/L <30 Lab Report: Comp. Metabolic Panel - Chemistry sodium, serum 140 mmol/L [id number] 4719/08/08 carbon dioxide, venous blood 33.7 mmol/L 21.0-32.0 [...] 5.0-8.5 Encounters Code Encounter Date Provider Facility CPT-25042 Level 3 Est. Patient 15:55:[address] [facility] Level 4 Est. Patient 10:49:[address] [facility] CPT-09690 Level 3 Est. Patient 10:00:[address] [facility] CPT-35074 Level 3 Est. Patient 10:29:[address] [facility] CPT-17657 Level 3 Est. Patient 11:04:38 CDT Renzo Barajas [facility] CPT-43310 Level 3 Est. Patient 11:15:58 REFUND CLERK Renzo Thornton [facility] CPT-26819 Level 3 Est. Patient 15:28:23 REFUND CLERK Suzan Boo [facility] [place][note 2] CPT-82515 Level 4 Est. Patient 10:20:54 REFUND CLERK Suzan Boo [facility] [place][note 2] CPT-55322 Level 3 Est. Patient 11:47:37 REFUND CLERK Ahmet Carbajal MD [facility] CPT-78829 Level 3 Est. Patient 10:40:11 REFUND CLERK Ahmet Carbajal MD [facility] CPT-39562 Level 3 Est. Patient 15:07:06 REFUND CLERK Neeraj Collins MD [facility] CPT-64366 Level 4 Est. Patient 14:45:00 REFUND CLERK Ahmet Carbajal MD [facility] CPT-76134 Level 3 Est. Patient 13:59:59 CDT Luigi Martínez [facility] [place][note 2] CPT-59964 Level 3 Est. Patient 18:18:53 CDT Neeraj Collins MD [facility] CPT-29445 Level 3 Est. Patient 15:50:44 CDT Vishal Hui MD [facility] CPT-13488 Level 3 Est. Patient 11:36:17 CDT Ahmet Carbajal MD [facility] CPT-22729 Level 3 Est. Patient 13:29:16 CDT Vishal Hui MD [facility] CPT-95928 Level 3 Est. Patient 14:27:52 CDT Neeraj Collins MD [facility] CPT-93867 Level 3 Est. Patient 08:56:03 CDT Luigi Martínez [facility] [place][note 2] CPT-63687 Level 4 Est. Patient 12:11:48 CDT Fabiola Johnson [facility] [place][note 2] CPT-44230 Level 3 New Patient 16:53:37 CDT Albert Caldera MD [facility] CPT-52781 Level 3 Est. Patient 11:25:49 CDT Renzo Thornton DO [facility] CPT-04430 Level 3 Est. Patient 15:22:01 CDT Ahmet Carbajal MD [facility] CPT-11610 Level 4 Est. Patient 09:00:51 REFUND CLERK Vishal Hui MD [facility] CPT-62896 Level 3 Est. Patient 11:37:33 REFUND CLERK Vishal Hui MD [facility] CPT-17603 Level 3 Est. Patient 08:41:09 REFUND CLERK Vishal Hui MD [facility] CPT-03479 Level 4 Est. Patient 10:19:35 REFUND CLERK Vishal Hui MD [facility] CPT-68968 Level 3 Est. Patient 13:35:45 CDT Vishal Hui MD [facility] CPT-10088 Level 4 Est. Patient 10:08:37 CDT Vishal Hui MD [facility] CPT-18403 Level 3 Est. Patient 11:22:10 CDT Vishal Hui MD [facility] CPT-60339 Level 3 Est. Patient 11:03:32 CDT Sahara Rodriguez MD [facility] CPT-49145 Level 3 Est. Patient 09:41:35 CDT Vishal Hui MD [facility] CPT-30651 Level 3 Est. Patient 12:00:41 CDT Neeraj Collins MD [facility] CPT-51151 Level 3 Est. Patient 09:16:24 CDT Vishal Hui MD [facility] CPT-23498 Level 4 Est. Patient 13:59:09 CDT Neeraj Collins MD [facility] CPT-71581 Level 3 Est. Patient 15:19:43 CDT Renzo Thornton DO [facility] CPT-26623 Level 3 Est. Patient 18:10:26 CDT Sahara Rodriguez MD [facility]-08463 Level 3 Est. Patient 14:49:50 CDT Vishal Hui MD [facility] CPT-66407 Level 4 Est. Patient 18:41:46 CDT Neeraj Collins MD [facility] CPT-35959 Level 4 Est. Patient 09:18:38 REFUND CLERK Vishal Hui MD [facility] CPT-89011 Level 3 Est. Patient 14:43:55 REFUND CLERK Vishal Hui MD [facility] CPT-65319 Level 3 Est. Patient 15:26:33 REFUND CLERK Sahara Rodriguez MD PhD [facility] CPT-67135 Level 3 Est. Patient 10:32:14 REFUND CLERK Vishal Hui MD [facility] CPT-60780 Level 3 Est. Patient 15:12:52 REFUND CLERK Vishal Hui MD [facility] CPT-79250 Level 4 Est. Patient 09:19:27 CDT Vishal Hui MD [facility] CPT-84076 Level 3 Est. Patient 15:53:00 CDT Renzo Thornton [facility] CPT-10983 Level 3 Est. Patient 15:50:30 CDT Renzo Thornton [facility] CPT-71282 Level 3 Est. Patient 16:55:24 CDT Vishal Hui MD [facility] Procedures Code Procedure Name Date Entry Date Standard Description CPT-21956 EKG Trac and Interp - XRAY USE ONLY 15:59:30 CDT 09/13 CPT-55936 Chest 1V Frontal - XRAY USE ONLY 15:59:30 CDT CPT-64240 Venipuncture Draw Fee 15:44:02 CDT CPT-38878 Venipuncture Draw Fee 08:41:12 CDT CPT-15006 Abd compl w upright - XRAY USE ONLY 10:27:59 CDT 06/28 CPT-27387 Smoking Cessation counseling 11:15:58 REFUND CLERK CPT-G0439 [facility] Annual Wellness Exam 09:30:58 REFUND CLERK CPT-03852 TSH - LAB USE ONLY 08:50:26 REFUND CLERK CPT-79298 CBC - LAB USE ONLY 08:50:26 REFUND CLERK CPT-76759 Venipuncture Draw Fee 08:50:26 REFUND CLERK CPT-47271 Abx/Therapy Injection 17:34:30 REFUND CLERK CPT-27797 Nexplanon Removal with Reinsertion 14:09:32 CDT CPT-J7307 Nexplanon (Implant) 14:09:32 CDT CPT-OV Office Visit 14:09:32 CDT CPT-44552 UA w micro - LAB USE ONLY 16:21:13 CDT CPT-00447 Wet Mount - LAB USE ONLY 16:21:13 CDT CPT-01202 First Vx - Ix admin for Medicare patients 14:37:47 CDT CPT-85498 Fluzone Preservative Free Intramuscular Suspension 14:37 :47 CDT CPT-28040 Abx/Therapy Injection 13:54:22 CDT CPT-10607 Abx/Therapy Injection 08:47:09 CDT CPT-21522 Abx/Therapy Injection 13:29:56 CDT CPT-70623 Abx/Therapy Injection 08:36:16 CDT CPT-00512 Wet Mount - LAB USE ONLY 17:44:58 CDT CPT-63232 UA w micro - LAB USE ONLY 17:44:58 CDT CPT-98690 CMP - LAB USE ONLY 17:44:58 CDT CPT-56244 Venipuncture Draw Fee 17:44:58 CDT CPT-84589 Cervical Min 4V - XRAY USE ONLY 09:01:40 CDT CPT-04670 Chest 2V Frontal and Lat - XRAY USE ONLY 11:06:31 CDT CPT-79294 EKG Trac and Interp - XRAY USE ONLY 11:31:43 CDT 08/26 CPT-J3420 Vitamin B12 1000mcg (Cyanocobalamin) 08:10:26 REFUND CLERK 04/12 CPT-86126 Abx/Therapy Injection 08:10:26 REFUND CLERK CPT-G0438 Initial Annual Wellness Exam 19:01:01 REFUND CLERK CPT-J3420 Vitamin B12 1000mcg (Cyanocobalamin) 16:57:46 CDT 08/14 CPT-58334 Recombivax HB Injection Suspension 5 MCG/0.5ML 08:37:50 REFUND CLERK CPT-74275 Immunization Single Admin 08:37:50 REFUND CLERK CPT-J3420 Vitamin B12 1000mcg (Cyanocobalamin) 08:32:16 REFUND CLERK 03/11 CPT-11598 Abx/Therapy Injection 08:32:16 REFUND CLERK CPT-56911 Chest 2V Frontal and Lat 11:46:38 REFUND CLERK CPT-19961 Venipuncture Draw Fee 09:12:45 REFUND CLERK CPT-J3420 Vitamin B12 1000mcg (Cyanocobalamin) 08:50:15 REFUND CLERK 02/08 CPT-16100 Abx/Therapy Injection 08:50:15 REFUND CLERK CPT-Cryo Cryotherapy 10:19:35 REFUND CLERK CPT-000 Give Appropriate Flu Vaccine 09:22:16 CDT CPT-J3420 Vitamin B12 1000mcg (Cyanocobalamin) 19:08:57 CDT 01/11 CPT-01139 Abx/Therapy Injection 19:08:57 CDT CPT-J3420 Vitamin B12 1000mcg (Cyanocobalamin) 08:19:08 CDT 12/11 CPT-53947 Abx/Therapy Injection 08:19:08 CDT CPT-J3420 Vitamin B12 1000mcg (Cyanocobalamin) 14:48:00 CDT 11/09 CPT-17608 Abx/Therapy Injection 14:47:59 CDT CPT-J3420 Vitamin B12 1000mcg (Cyanocobalamin) 08:34:04 CDT 10/09 CPT-26972 Abx/Therapy Injection 08:34:04 CDT CPT-J3420 Vitamin B12 1000mcg (Cyanocobalamin) 09:18:52 CDT 09/11 CPT-14876 Abx/Therapy Injection 09:18:52 CDT CPT-J3420 Vitamin B12 1000mcg (Cyanocobalamin) 08:35:44 CDT 09/04 CPT-89600 Abx/Therapy Injection 08:35:44 CDT CPT-08071 Immunization Single Admin 11:07:16 CDT CPT-03177 Hepatitis B adult IM 11:07:16 CDT CPT-J3420 Vitamin B12 1000mcg (Cyanocobalamin) 11:00:49 CDT 08/28 CPT-J1040 Depo Medrol 80 mg (Methyl Prednisolone Acetate) 11:00: 49 CDT CPT-76601 Abx/Therapy Injection 11:00:49 CDT CPT-J1040 Depo Medrol 80 mg (Methyl Prednisolone Acetate) 09:16: 23 CDT CPT-J3420 Vitamin B12 1000mcg (Cyanocobalamin) 08:27:05 CDT 08/20 CPT-15690 Abx/Therapy Injection 08:27:05 CDT CPT-64961 Recombivax HB Injection Suspension 5 MCG/0.5ML 10:00:41 CDT CPT-26665 Administration single or combination vaccine inc oral 10 :00:41 CDT CPT-16719 Sono transvag pelvis non OB uterus ovaries cervix 16:36: 57 CDT CPT-91187 LS spine comp w obliq 09:50:55 REFUND CLERK CPT-08595 Abd compl w upright 09:50:55 REFUND CLERK CPT-J1100 Decadron 4mg (Dexamethasone) 15:51:24 REFUND CLERK CPT-J1030 Depo Medrol 40 mg (Methyl Prednisolone Acetate) 15:51: 24 REFUND CLERK CPT-81127 Abx/Therapy Injection 15:51:24 REFUND CLERK CPT-J1100 Decadron 4mg (Dexamethasone) 15:26:33 REFUND CLERK CPT-J1030 Depo Medrol 40 mg (Methyl Prednisolone Acetate) 15:26: 33 REFUND CLERK CPT-75729 Sono retroperitoneal complete kidneys and bladder 17:15: 30 CDT CPT-77174 Abd compl w upright 16:09:25 CDT CPT-J1100 Decadron 8mg (Dexamethasone) 17:07:57 CDT CPT-29141 Abx/Therapy Injection 17:07:57 CDT CPT-J1100 Decadron 8mg (Dexamethasone) 16:55:24 CDT CPT-66856 Chest 2V Frontal and Lat 16:32:44 CDT
--- OUTSIDE RECORDS SUMMARY | 2016-11-04 13:11 | XMS REPORT | Clinical Summary ---
Author Author Admin, E Organization [facility] [employer] Address Unknown Phone Unavailable Allergies, Adverse Reactions, [...] facility Sinus tachycardia 427.89 Resolved Suzan Rajeev [employer] Other specified cardiac dysrhythmias Schizoaffective disorder 295.70 [...] Active Ahmet Carbajal MD Generalized anxiety disorder Compliance Consultant well woman exam V72.31 Active Suzan Boo [...] Other nonspecific findings on examination of urine Anxiety Disorder ICD-300.00 Inactive Vishal Hui MD Pneumonia, organism unspecified ICD-486 Inactive Vishal Hui MD Flank pain, right ICD-789.09 Inactive Vishal Hui MD G E R D ICD-530.81 Inactive Vishal Hui MD Health screening ICD-V70.0 Inactive Suzan Boo [employer] Sinus tachycardia ICD-427.89 Inactive Suzan Boo [employer] Smoker/tobacco use disorder-smoking cessation discussed ICD-305.1 Inactive [...] SOLN 30mL oral daily for IBS-C LACTULOSE 43454961586 Active Suzan Boo APRN Active TESSALON PERLES 100 MG CAPS 1 three times a day as needed for cough BENZONATATE 25018793130 No Longer Active Suzan Boo APRN Active BACTRIM DS 800-160 MG TABS 1 twice a day SULFAMETHOXAZOLE-TRIMETHOPRIM 03675233325 No Longer Active Suzan Boo APRN Active DIFLUCAN 150 MG TABS 1 by mouth for yeast FLUCONAZOLE 50606073112 No Longer Active Suzan Boo APRN Active EQ NICOTINE 21 MG/24HR TRANS PT24 Apply daily to stop smoking NICOTINE 56228954578 No Longer Active Suzan Boo APRN Active PREDNISONE 10 MG TABS 2 daily for 5 days then 1 daily for 5 days PREDNISONE 24303305539 No Longer Active Suzan Boo APRN Active LEVAQUIN 500 MG TABS 1 daily for infection LEVOFLOXACIN 06355747792 No Longer Active Suzan Boo APRN Active TROPICAMIDE 0.5 % OPHTH SOLN 1 drop PRN eye spasms TROPICAMIDE 72713760750 No Longer Active Suzan Boo APRN Active PREDNISONE 20 MG TAB 1 tablet daily x 4 days PREDNISONE 11518977207 No Longer Active Suzan Boo APRN Active ACETAMINOPHEN-CODEINE 120-12 MG/5ML SOLN 5 ml by mouth every 4-6 hours if needed for cough ACETAMINOPHEN-CODEINE 15816118062 No Longer Active Suzan Boo APRN Active KEFLEX 500 MG CAP 1 po qid CEPHALEXIN 63589404922 No Longer Active Suzan Boo APRN Active FLOVENT HFA 110 MCG/ACT AERO 2 puffs inhaled b.i.d. FLUTICASONE PROPIONATE HFA 99028441377 Active Renzo Thornton DO Active RISPERDAL 4 MG ORAL TABS 1 tab at bedtime RISPERIDONE 20683054512 Active Samantha Rothman RMA Active ZOFRAN 4 MG TABS 1 po q6hr PRN Nausea ONDANSETRON HCL No Longer Active Suzan Boo APRN Active FLUTICASONE PROPIONATE 50 MCG/ACT SUSP 2 sprays each nostril daily before bed. FLUTICASONE PROPIONATE 33118857836 No Longer Active Suzan Boo APRN Active ASPIRIN 325 MG ORAL TABS 1 tab q.d ASPIRIN 19868266689 No Longer Active Suzan Boo APRN Active HALOPERIDOL 10 MG ORAL TABS 1 tab q.d HALOPERIDOL 19070483490 No Longer Active Suzan Boo APRN Active GUAIFENESIN-CODEINE 100-10 MG/5ML SYRP 5ml every 4 to 6 hours as needed for cough GUAIFENESIN-CODEINE 53675945987 No Longer Active Suzan Boo APRN Active ZITHROMAX Z-EARNEST 250 MG TABS 2 today and then 1 daily for 4 days AZITHROMYCIN 26336079631 No Longer Active Suzan Boo APRN Active CLONAZEPAM 1 MG ORAL TABS 1 twice a day and an additional 1 tablet every other day as needed for pseudoseizures or anxiety CLONAZEPAM 41174684995 Active Ahmet Carbajal MD Active HYDROCODONE-ACETAMINOPHEN 5-325 MG ORAL TABS 1 tab two times a day HYDROCODONE-ACETAMINOPHEN 41812783300 No Longer Active Ahmet Carbajal MD Active LAMICTAL 100 MG ORAL TABS 1 tab 2 times qd. LAMOTRIGINE 30140255558 Active Ahmet Carbajal MD Active PREDNISONE 20 MG TABS 2 daily for 5 days then 1 daily for 5 days PREDNISONE 08464094988 No Longer Active Ahmet Carbajal MD Active FLUTICASONE PROPIONATE 50 MCG/ACT SUSP 1 to 2 sprays each nostril daily for allergies FLUTICASONE PROPIONATE 19271311429 Active Tila Valenzuela Active BENADRYL 25 MG CAP 4 po at bedtime for insomnia DIPHENHYDRAMINE HCL 27911053691 No Longer Active Ahmet Carbajal MD Active ADVAIR DISKUS 250-50 MCG/DOSE INH AEPB 1 puff twice a day for asthma FLUTICASONE-SALMETEROL 17707881721 No Longer Active Ahmet Carbajal MD Active KLONOPIN 1 MG ORAL TABS 1 tab po TID CLONAZEPAM 78077331653 No Longer Active Ahmet Carbajal MD Active ABILIFY MAINTENA 400 MG IM SUSR 400mg injection every 26 days ARIPIPRAZOLE 46655128261 No Longer Active Ahmet Carbajal MD Active TRAMADOL HCL 50 MG TABS 1/2-1 tab TID PRN TRAMADOL HCL 21596240623 No Longer Active Ahmet Carbajal MD Active BACTRIM DS 800-160 MG TABS 1 twice a day SULFAMETHOXAZOLE- TRIMETHOPRIM 63575031277 No Longer Active Ahmet Carbajal MD Active PROAIR HFA 108 (90 BASE) MCG/ACT AERS 2 puffs four times a day as needed 2015 ALBUTEROL SULFATE 75980993351 Active Ahmet Carbajal MD Active MONISTAT 7 COMBO PACK WOODROW 100 & 2 MG-% (9GM) VAG KIT 1 applicatorful per vagina q pm x 7 MICONAZOLE NITRATE 33210641979 No Longer Active Ahmet Carbajal MD Active FLAGYL 500 MG TAB 1 tablet by mouth bid METRONIDAZOLE 20911056771 No Longer Active Ahmet Carbajal MD Active OXYCODONE HCL ER 10 MG ORAL T12A 1/2 tab by mouth every 4 hours prn OXYCODONE HCL 52563943759 No Longer Active Ahmet Carbajal MD Active METHYLPREDNISOLONE 4 MG ORAL TABS po daily METHYLPREDNISOLONE 17783744770 No Longer Active Ahmet Carbajal MD Active LEVOFLOXACIN 500 MG ORAL TABS po daily LEVOFLOXACIN 61937554845 No Longer Active Ahmet Carbajal MD Active VIIBRYD 10 MG ORAL TABS Take 1 tablet once a day VILAZODONE HCL 45546829284 No Longer Active Ahmet Carbajal MD Active TOPAMAX 50 MG ORAL TABS 1 tab twice daily TOPIRAMATE 85556357852 No Longer Active Ahmet Carbajal MD Active DICLOFENAC SODIUM 50 MG TBEC 1 tablet by mouth four times daily PRN Pain 2015 DICLOFENAC SODIUM 97479777177 No Longer Active Ahmet Carbajal MD Active ADZENYS XR-ODT 6.3 MG ORAL TBED 1 tab po daily for ADHD AMPHETAMINE 63534348305 No Longer Active Ahmet Carbajal MD Active CHANTIX 1 MG TABS 1 twice a day to help quit smoking VARENICLINE TARTRATE 01175281165 No Longer Active Dipika Burgos MD Active CHANTIX STARTING MONTH EARNEST 0.5 MG X 11 & 1 MG X 42 TABS take as directed 2015 VARENICLINE TARTRATE 52386743268 No Longer Active Dipika Burgos MD Active TESSALON PERLES 100 MG CAP 1 to 2 tablets by mouth 3 times daily as needed for cough BENZONATATE 96200586956 No Longer Active Luigi Martínez APRN Active IMITREX 50 MG ORAL TABS 0.5 po x 1 PRN Headache. May repeat dose x 1 in 2 hours if needed SUMATRIPTAN SUCCINATE 36971395548 Active Ahmet Carbajal MD Active HYDROCODONE-ACETAMINOPHEN 5-325 MG TABS 1 to 2 four times a day as needed for pain use until can be seen by specialist HYDROCODONE- ACETAMINOPHEN 47757659712 No Longer Active Vishal Hui MD Active PROAIR HFA 108 (90 BASE) MCG/ACT AERS 2 puffs four times a day as needed 2015 ALBUTEROL SULFATE 71391399935 No Longer Active Vishal Hui MD Active PREDNISONE 20 MG TABS 2 daily for 5 days then 1 daily for 5 days PREDNISONE 71003349808 No Longer Active Vishal Hui MD Active ZITHROMAX Z-EARNEST 250 MG TABS 2 today and then 1 daily for 4 days AZITHROMYCIN 82236183441 No Longer Active Vishal Hui MD Active DICLOFENAC POTASSIUM TABS Take 1 tablet twice a day (pt. is not sure of the dose.) DICLOFENAC POTASSIUM TABS 98258337513 No Longer Active Vishal Hui MD Active VERAPAMIL HCL ER 120 MG ORAL CR-TABS Take 1 tablet by mouth twice a day. VERAPAMIL HCL 60581022127 Active Vishal Hui MD Active FLAGYL 500 MG TAB 1 tablet by mouth bid METRONIDAZOLE 03653645752 No Longer Active Vishal Hui MD Active VALIUM 5 MG TAB Take 1-2 tablets daily DIAZEPAM 76922356084 No Longer Active Fabiola Johnson APRN Active METOPROLOL TARTRATE 25 MG ORAL TABS 1/2 tablet twice daily for heart rate and blood pressure METOPROLOL TARTRATE 89640467454 No Longer Active Fabiola Johnson APRN Active MIRALAX ORAL POWD 17GMS DAILY IN WATER POLYETHYLENE GLYCOL 3350 94387816322 Active TAMARA Casey Active MIRALAX PACK 1 po qd PRN Constipation POLYETHYLENE GLYCOL 3350 06119415376 No Longer Active Ahmet Carbajal MD Active MINIPRESS 2 MG CAPS 4 cap po at night PRAZOSIN HCL 00507854188 No Longer Active Ahmet Carbajal MD Active PIROXICAM 20 MG CAPS 1 cap po qd PRN Pain PIROXICAM 37519824407 No Longer Active Ahmet Carbajal MD Active TRAMADOL HCL 50 MG TABS 1-2 po TID PRN Pain TRAMADOL HCL 19037765254 No Longer Active Ahmet Carbajal MD Active METOPROLOL TARTRATE 50 MG TAB 1 po bid METOPROLOL TARTRATE 02505954495 No Longer Active Ahmet Carbajal MD Active ABILIFY 15 MG ORAL TABS 1 tab daily ARIPIPRAZOLE 10146006307 No Longer Active Ahmet Carbajal MD Active PROZAC 20 MG ORAL CAPS 1 tab daily FLUOXETINE HCL 80837477624 No Longer Active Ahmet Carbajal MD Active AMBIEN 5 MG ORAL TABS 1 tab at bedtime ZOLPIDEM TARTRATE 93122267154 No Longer Active Ahmet Carbajal MD Active PREDNISONE 20 MG TAB 2 tabs daily for 4 days, 1 tab daily for 4 days, 1/2 tab daily for 4 days PREDNISONE 67766727133 No Longer Active Ahmet Carbajal MD Active KEFLEX 500 MG CAP 1 po TID x 10 days CEPHALEXIN 61183896540 No Longer Active Vishal Hui MD Active SAPHRIS 5 MG SUBL 1 po bid ASENAPINE MALEATE 98459509527 No Longer Active Jillina Fralebron TRIBAL DELEGATE Active LATUDA 80 MG TABS Take one by mouth daily LURASIDONE HCL 88526481278 No Longer Active Jillina Frazell TRIBAL DELEGATE Active AMLODIPINE BESYLATE 5 MG TABS 1 tablet by mouth daily AMLODIPINE BESYLATE 28316763782 No Longer Active Jillina Mauricio TRIBAL DELEGATE Active AMITRIPTYLINE HCL 100 MG TAB one at hs AMITRIPTYLINE HCL 50457680530 No Longer Active Vishal Hui MD Active TRAZODONE HCL 100 MG TAB take 1 at bedtime TRAZODONE HCL 68541346043 No Longer Active Vishal Hui MD Active VYVANSE 40 MG CAPS 1 daily, LISDEXAMFETAMINE DIMESYLATE 89929159699 No Longer Active Vishal Hui MD Active IBUPROFEN 600 MG TAB 1 po TID PRN IBUPROFEN 44476418067 No Longer Active Vishal Hui MD Active PROZAC 20 MG CAP Take one by mouth daily FLUOXETINE HCL 02281000764 No Longer Active Vishal Hui MD Active BACTRIM DS 800-160 MG TABS 1 pill by mouth twice daily SULFAMETHOXAZOLE-TRIMETHOPRIM 47089881816 No Longer Active Sahara Rodriguez MD PhD Active DIFLUCAN 150 MG TAB 1 tablet by mouth daily FLUCONAZOLE 38071893732 No Longer Active Vishal Hui MD Active TIZANIDINE HCL 4 MG TABS 1 po q6hr PRN Muscle Spasm/Back Pain TIZANIDINE HCL 85876005545 Active Vishal Hui MD Active CLINDAMYCIN HCL 150 MG CAPS 1 four times a day CLINDAMYCIN HCL 01991265384 No Longer Active Neeraj Collins MD Active KEFLEX 500 MG ORAL CAPS 1 cap QID by mouth CEPHALEXIN 29591481888 No Longer Active Neeraj Collins MD Active DIFLUCAN 150 MG TABS 1 pill every other day x 2 doses FLUCONAZOLE 66603019276 No Longer Active Sahara Rodriguez MD PhD Active MELATONIN 3 MG CAPS 2 po q hs MELATONIN 94922493148 No Longer Active Sahara Rodriguez MD PhD Active MULTIVITAMINS CAPS Take one by mouth daily MULTIPLE VITAMIN 86987448457 No Longer Active Sahara Rodriguez MD PhD Active BACTRIM DS 800-160 MG TAB 1 tab by mouth twice daily TRIMETHOPRIM-SULFAMETHOXAZOLE 12188070103 No Longer Active Sahara Rodriguez MD PhD Active [facility] PROBIOTIC ORAL CHEW 2 daily po PROBIOTIC PRODUCT 52496998106 No Longer Active Sahara Rodriguez MD PhD Active BACTRIM DS 800-160 MG TABS 1 po BID x 7 days SULFAMETHOXAZOLE-TRIMETHOPRIM 29615175468 No Longer Active Vishal Hui MD Active CHANTIX STARTING MONTH EARNEST 0.5 MG X 11 & 1 MG X 42 TABS 0.5mg daily for 3 days , then 0.5mg BID for 4 days, then 1mg BID VARENICLINE TARTRATE 05327570030 No Longer Active TAMARA Gray Active VERAPAMIL HCL CR 120 MG TAB CR 1 po bid VERAPAMIL HCL 31578243599 No Longer Active Vishal Hui MD Active METOPROLOL SUCCINATE 50 MG TB24 1 tablet by mouth daily METOPROLOL SUCCINATE 62943203018 No Longer Active Vishal Hui MD Active SAPHRIS 10 MG SUBL 1 tab po bid ASENAPINE MALEATE 89764515581 No Longer Active Vishal Hui MD Active LISINOPRIL 20 MG TABS 1 tab po qd LISINOPRIL 80593420897 No Longer Active Vishal Hui MD Active LATUDA 20 MG TABS Take one by mouth daily LURASIDONE HCL 07856532616 No Longer Active Vishal Hui MD Active TRAZODONE HCL 50 MG TABS 1/2 tab po qd prn for anxiety TRAZODONE HCL 21913852756 No Longer Active Vishal Hui MD Active OMEPRAZOLE 20 MG TBEC 1 po q a.m. 30min prior to first food intake OMEPRAZOLE 21149900388 Active TAMARA Casey Active RANITIDINE HCL 150 MG CAPS 1 twice a day RANITIDINE HCL 22154906846 Active Jillina Frazell TRIBAL DELEGATE Active LINZESS 290 MCG CAPS Take one by mouth daily LINACLOTIDE 44443346873 No Longer Active Vishal Hui MD Active SAPHRIS 5 MG SUBL 1 tab po qd ASENAPINE MALEATE 08003045531 No Longer Active Vishal Hui MD Active ZALEPLON 10 MG CAPS 1 cap po every other night ZALEPLON 57328838135 No Longer Active Vishal Hui MD Active LYRICA 50 MG CAPS 1 tab po TID PREGABALIN 35735577279 No Longer Active Vishal Hui MD Active LORATADINE 10 MG TABS 1 tab po qd LORATADINE 97697950958 No Longer Active Vishal Hui MD Active VERAPAMIL HCL ER 180 MG CR-TABS 1 tab po bid VERAPAMIL HCL 24794554010 No Longer Active Vishal Hui MD Active MIRALAX POWD 1 capfull once daily POLYETHYLENE GLYCOL 3350 15278009037 No Longer Active Vishal Hui MD Active PREDNISONE 20 MG TABS 1 tab po qd PREDNISONE 33615924712 No Longer Active Renzo Thornton DO Active LEVOFLOXACIN 500 MG TABS 1 tab po qd LEVOFLOXACIN 79061331847 No Longer Active Renzo Thornton DO Active BUSPIRONE HCL 15 MG TABS 1 tab po TID BUSPIRONE HCL 14312384557 No Longer Active Renzo Thornton DO Active BENZTROPINE MESYLATE 1 MG TABS 1 tab po qd BENZTROPINE MESYLATE 46310357572 No Longer Active Renzo Thornton DO Active ATENOLOL 25 MG TABS 1 tab po qd ATENOLOL 65690901324 No Longer Active Renzo Thornton DO Active ESCITALOPRAM OXALATE 20 MG TABS 1 tab po qd ESCITALOPRAM OXALATE 02537275347 No Longer Active Renzo Thornton DO Active ADVAIR DISKUS 250-50 MCG/DOSE AEPB 1 puff BID FLUTICASONE-SALMETEROL 68489119536 No Longer Active Renzo Thornton DO Active PREDNISONE 20 MG TAB 2 tabs daily for 3 days, 1 tab daily for 3 days, 1/2 tab daily for 2 days PREDNISONE 98032356532 No Longer Active Vishal Hui MD Active CEFDINIR 300 MG CAPS by mouth twice a day CEFDINIR 50345676680 No Longer Active Vishal Hui MD Active LANSOPRAZOLE 30 MG CPDR 1 cap po qd LANSOPRAZOLE 07991257994 No Longer Active Vishal Hui MD Active BACLOFEN 20 MG TABS 1 tab po tid BACLOFEN 24113116246 No Longer Active Vishal Hui MD Active ADVAIR DISKUS 250-50 MCG/DOSE AEPB 1 puff BID ADVAIR DISKUS 250-50 MCG/DOSE AEPB FLUTICASONE-SALMETEROL Inactive ESCITALOPRAM OXALATE 20 MG TABS 1 tab po qd ESCITALOPRAM OXALATE 20 MG TABS 731684 ESCITALOPRAM OXALATE Inactive ATENOLOL 25 MG TABS 1 tab po qd ATENOLOL 25 MG TABS 817987 ATENOLOL Inactive BENZTROPINE MESYLATE 1 MG TABS 1 tab po qd BENZTROPINE MESYLATE 1 MG TABS 598846 BENZTROPINE MESYLATE Inactive BUSPIRONE HCL 15 MG TABS 1 tab po TID BUSPIRONE HCL 15 MG TABS 876857 BUSPIRONE HCL Inactive LEVOFLOXACIN 500 MG TABS 1 tab po qd LEVOFLOXACIN 500 MG TABS 572441 LEVOFLOXACIN Inactive PREDNISONE 20 MG TABS 1 tab po qd PREDNISONE 20 MG TABS 982403 PREDNISONE Inactive MIRALAX POWD 1 capfull once daily MIRALAX POWD 441805 POLYETHYLENE GLYCOL 3350 Inactive VERAPAMIL HCL ER 180 MG CR-TABS 1 tab po bid VERAPAMIL HCL ER 180 MG CR-TABS VERAPAMIL HCL Inactive LORATADINE 10 MG TABS 1 tab po qd LORATADINE 10 MG TABS 396624 LORATADINE Inactive LYRICA 50 MG CAPS 1 tab po TID LYRICA 50 MG CAPS PREGABALIN Inactive ZALEPLON 10 MG CAPS 1 cap po every other night ZALEPLON 10 MG CAPS 323108 ZALEPLON Inactive SAPHRIS 5 MG SUBL 1 tab po qd SAPHRIS 5 MG SUBL ASENAPINE MALEATE Inactive TRAZODONE HCL 50 MG TABS 1/2 tab po qd prn for anxiety TRAZODONE HCL 50 MG TABS 395156 TRAZODONE HCL Inactive LATUDA 20 MG TABS Take one by mouth daily LATUDA 20 MG TABS LURASIDONE HCL Inactive LISINOPRIL 20 MG TABS 1 tab po qd LISINOPRIL 20 MG TABS 613422 LISINOPRIL Inactive SAPHRIS 10 MG SUBL 1 [...] twice daily BACTRIM DS 800-160 MG TAB 705706 TRIMETHOPRIM-SULFAMETHOXAZOLE Inactive MULTIVITAMINS CAPS Take one by mouth daily MULTIVITAMINS CAPS MULTIPLE VITAMIN Inactive MELATONIN 3 MG CAPS 2 po q hs MELATONIN 3 MG CAPS 977567 MELATONIN Inactive KEFLEX 500 MG ORAL CAPS 1 cap QID by mouth KEFLEX 500 MG ORAL CAPS 646112 CEPHALEXIN Inactive CLINDAMYCIN HCL 150 MG CAPS 1 four times a day CLINDAMYCIN HCL 150 MG CAPS 619206 CLINDAMYCIN HCL Inactive DIFLUCAN 150 MG TAB 1 tablet by mouth daily DIFLUCAN 150 MG TAB 650561 FLUCONAZOLE Inactive PROZAC 20 MG CAP Take one by mouth daily PROZAC 20 MG CAP 174280 FLUOXETINE HCL Inactive IBUPROFEN 600 MG TAB 1 po TID PRN IBUPROFEN 600 MG TAB 301502 IBUPROFEN Inactive VYVANSE 40 MG CAPS 1 daily, VYVANSE 40 MG CAPS LISDEXAMFETAMINE DIMESYLATE Inactive TRAZODONE HCL 100 MG TAB take 1 at bedtime TRAZODONE HCL 100 MG TAB 080508 TRAZODONE HCL Inactive AMITRIPTYLINE HCL 100 MG TAB one at hs AMITRIPTYLINE HCL 100 MG TAB 529292 AMITRIPTYLINE HCL Inactive AMLODIPINE BESYLATE 5 MG TABS 1 tablet by mouth daily AMLODIPINE BESYLATE 5 MG TABS 908906 AMLODIPINE BESYLATE Inactive LATUDA 80 MG TABS Take one by mouth daily LATUDA 80 MG TABS LURASIDONE HCL Inactive SAPHRIS 5 MG SUBL 1 po bid SAPHRIS 5 MG SUBL ASENAPINE MALEATE Inactive PREDNISONE 20 MG TAB 2 tabs daily for 4 days, 1 tab daily for 4 days, 1/2 tab daily for 4 days PREDNISONE 20 MG TAB 476433 PREDNISONE Inactive AMBIEN 5 MG ORAL TABS 1 tab at bedtime AMBIEN 5 MG ORAL TABS 819047 ZOLPIDEM TARTRATE Inactive PROZAC 20 MG ORAL CAPS 1 tab daily PROZAC 20 MG ORAL CAPS 722653 FLUOXETINE HCL Inactive ABILIFY 15 MG ORAL TABS 1 tab daily ABILIFY 15 MG ORAL TABS 816383 ARIPIPRAZOLE Inactive METOPROLOL TARTRATE 50 MG TAB 1 po bid METOPROLOL TARTRATE 50 MG TAB 814053 METOPROLOL TARTRATE Inactive TRAMADOL HCL 50 MG TABS 1-2 po TID PRN Pain TRAMADOL HCL 50 MG TABS 898526 TRAMADOL HCL Inactive PIROXICAM 20 MG CAPS 1 cap po qd PRN Pain PIROXICAM 20 MG CAPS 792108 PIROXICAM Inactive MINIPRESS 2 MG CAPS 4 cap po at night MINIPRESS 2 MG CAPS 502049 PRAZOSIN HCL Inactive MIRALAX PACK 1 po qd PRN Constipation MIRALAX PACK 060427 POLYETHYLENE GLYCOL 3350 Inactive METOPROLOL TARTRATE 25 MG ORAL TABS 1/2 tablet twice daily for heart rate and blood pressure METOPROLOL TARTRATE 25 MG ORAL TABS 624193 METOPROLOL TARTRATE Inactive VALIUM 5 MG TAB Take 1-2 tablets daily VALIUM 5 MG TAB 716177 DIAZEPAM Inactive FLAGYL 500 MG TAB 1 tablet by mouth bid FLAGYL 500 MG TAB 387283 METRONIDAZOLE Inactive DICLOFENAC POTASSIUM TABS Take 1 tablet twice a day (pt. is not sure of the dose.) DICLOFENAC POTASSIUM TABS DICLOFENAC POTASSIUM TABS Inactive ZITHROMAX Z-EARNEST 250 MG TABS 2 today and then 1 daily for 4 days ZITHROMAX Z-EARNEST 250 MG TABS 8215377 AZITHROMYCIN Inactive PREDNISONE 20 MG TABS 2 daily for 5 days then 1 daily for 5 days PREDNISONE 20 MG TABS 180960 PREDNISONE Inactive PROAIR HFA 108 (90 BASE) MCG/ACT AERS 2 puffs four times a day as needed 2015 PROAIR HFA 108 (90 BASE) MCG/ACT AERS ALBUTEROL SULFATE Inactive HYDROCODONE-ACETAMINOPHEN 5-325 MG TABS 1 to 2 four times a day as needed for pain use until can be seen by specialist HYDROCODONE- ACETAMINOPHEN 5-325 MG TABS 140311 HYDROCODONE-ACETAMINOPHEN Inactive TESSALON PERLES 100 MG CAP 1 to 2 tablets by mouth 3 times daily as needed for cough TESSALON PERLES 100 MG CAP 211254 BENZONATATE Inactive CHANTIX STARTING MONTH EARNEST 0.5 [...] Pain 2015 DICLOFENAC SODIUM 50 MG TBEC 859773 DICLOFENAC SODIUM Inactive TOPAMAX 50 MG ORAL TABS 1 tab twice daily TOPAMAX 50 MG ORAL TABS 122403 TOPIRAMATE Inactive VIIBRYD 10 MG ORAL TABS Take 1 tablet once a day VIIBRYD 10 MG ORAL TABS VILAZODONE HCL Inactive LEVOFLOXACIN 500 MG ORAL TABS po daily LEVOFLOXACIN 500 MG ORAL TABS 208547 LEVOFLOXACIN Inactive METHYLPREDNISOLONE 4 MG ORAL TABS po daily METHYLPREDNISOLONE 4 MG ORAL TABS 347301 METHYLPREDNISOLONE Inactive OXYCODONE HCL ER 10 MG ORAL T12A 1/2 tab by mouth every 4 hours prn OXYCODONE HCL ER 10 MG ORAL T12A OXYCODONE HCL Inactive FLAGYL 500 MG TAB 1 tablet by mouth bid FLAGYL 500 MG TAB 327916 METRONIDAZOLE Inactive MONISTAT 7 COMBO PACK WOODROW 100 & 2 MG-% (9GM) VAG KIT 1 applicatorful per vagina q pm x 7 MONISTAT 7 COMBO PACK WOODROW 100 & 2 MG-% (9GM) VAG KIT MICONAZOLE NITRATE Inactive BACTRIM DS 800-160 MG TABS 1 twice a day BACTRIM DS 800-160 MG TABS 341735 SULFAMETHOXAZOLE-TRIMETHOPRIM Inactive TRAMADOL HCL 50 MG TABS 1/2-1 tab TID PRN TRAMADOL HCL 50 MG TABS 163183 TRAMADOL HCL Inactive ABILIFY MAINTENA 400 MG IM SUSR 400mg injection every 26 days ABILIFY MAINTENA 400 MG IM SUSR ARIPIPRAZOLE Inactive KLONOPIN 1 MG ORAL TABS 1 tab po TID KLONOPIN 1 MG ORAL TABS 029533 CLONAZEPAM Inactive ADVAIR DISKUS 250-50 MCG/DOSE INH AEPB 1 puff twice a day for asthma ADVAIR DISKUS 250-50 MCG/DOSE INH AEPB FLUTICASONE- SALMETEROL Inactive BENADRYL 25 MG CAP 4 po at bedtime for insomnia BENADRYL 25 MG CAP DIPHENHYDRAMINE HCL Inactive PREDNISONE 20 MG TABS 2 daily for 5 days then 1 daily for 5 days PREDNISONE 20 MG TABS 905078 PREDNISONE Inactive HYDROCODONE-ACETAMINOPHEN 5-325 MG ORAL TABS 1 tab two times a day HYDROCODONE-ACETAMINOPHEN 5-325 MG ORAL TABS 483389 HYDROCODONE-ACETAMINOPHEN Inactive ZITHROMAX Z-EARNEST 250 MG TABS 2 today and then 1 daily for 4 days ZITHROMAX Z-EARNEST 250 MG TABS 4303247 AZITHROMYCIN Inactive GUAIFENESIN-CODEINE 100-10 MG/5ML SYRP 5ml every 4 to 6 hours as needed for cough GUAIFENESIN-CODEINE 100-10 MG/5ML SYRP 141956 GUAIFENESIN-CODEINE Inactive HALOPERIDOL 10 MG ORAL TABS 1 tab q.d HALOPERIDOL 10 MG ORAL TABS 609762 HALOPERIDOL Inactive ASPIRIN 325 MG ORAL TABS 1 tab q.d ASPIRIN 325 MG ORAL TABS 620530 ASPIRIN Inactive FLUTICASONE PROPIONATE 50 MCG/ACT SUSP 2 sprays each nostril daily before bed. FLUTICASONE PROPIONATE 50 MCG/ACT SUSP 1307130 FLUTICASONE PROPIONATE Inactive ZOFRAN 4 MG TABS 1 po q6hr PRN Nausea ZOFRAN 4 MG TABS 680601 ONDANSETRON HCL Inactive KEFLEX 500 MG CAP 1 po qid KEFLEX 500 MG CAP 115851 CEPHALEXIN Inactive ACETAMINOPHEN-CODEINE 120-12 MG/5ML SOLN 5 ml by mouth every 4-6 hours if needed for cough ACETAMINOPHEN-CODEINE 120-12 MG/5ML SOLN 392414 ACETAMINOPHEN-CODEINE Inactive PREDNISONE 20 MG TAB 1 tablet daily x 4 days PREDNISONE 20 MG TAB 703144 PREDNISONE Inactive TROPICAMIDE 0.5 % OPHTH SOLN 1 drop PRN eye spasms TROPICAMIDE 0.5 % [facility] 230488 TROPICAMIDE Inactive LEVAQUIN 500 MG TABS 1 daily for infection LEVAQUIN 500 MG TABS 432796 LEVOFLOXACIN Inactive PREDNISONE 10 MG TABS 2 daily for 5 days then 1 daily for 5 days PREDNISONE 10 MG TABS 929958 PREDNISONE Inactive EQ NICOTINE 21 MG/24HR TRANS [...] for cough TESSALON PERLES 100 MG CAPS 292222 BENZONATATE Inactive CEFDINIR 300 MG CAPS by mouth twice a day CEFDINIR 300 MG CAPS 412718 CEFDINIR Inactive PREDNISONE 20 MG TAB 2 tabs daily for 3 days, 1 tab daily for 3 days, 1/2 tab daily for 2 days PREDNISONE 20 MG TAB 462279 PREDNISONE Inactive BACTRIM DS 800-160 MG TABS 1 po BID x 7 days BACTRIM DS 800-160 MG TABS 627584 SULFAMETHOXAZOLE-TRIMETHOPRIM Inactive DIFLUCAN 150 MG TABS 1 pill every other day x 2 doses DIFLUCAN 150 MG TABS 19751126 FLUCONAZOLE Inactive BACTRIM DS 800-160 MG TABS 1 pill by mouth twice daily BACTRIM DS 800-160 MG TABS 921397 SULFAMETHOXAZOLE-TRIMETHOPRIM Inactive KEFLEX 500 MG CAP 1 po TID x 10 days KEFLEX 500 MG CAP 817200 CEPHALEXIN Inactive Advance Directives Directive Description Start [...] % 11.0-15.0 platelet count 443 THOUSAND/UL 10*3/mm3 686-973 2969/03/01 mean platelet volume 8.2 fL 7.5-12.5 leukocyte [...] % 11.0-15.0 platelet count 349 THOUSAND/UL 10*3/mm3 844-592 3231/04/12 mean platelet volume 8.4 fL 7.5-12.5 Lab [...] 369 10^3/MM^3 10*3/mm3 142-424 Lab Report: Chlamydia/GC APTIMA/[id number] - Lab chlamydia DNA probe NOT DETECTED NOT DETECTED Lab Report: Chlamydia/GC APTIMA/[id number] - Microbiology Neisseria gonorrhoeae DNA probe NOT DETECTED NOT DETECTED Lab Report: Chlamydia/GC APTIMA/[id number], Urinalysis, Complete, with Reflex ... - Lab chlamydia DNA probe NOT DETECTED NOT DETECTED Lab Report: Chlamydia/GC APTIMA/[id number], Urinalysis, Complete, with Reflex ... - Microbiology Neisseria gonorrhoeae DNA probe NOT DETECTED NOT DETECTED Lab Report: Chlamydia/GC APTIMA/[id number], Urinalysis, Complete, with Reflex ... - Urinalysis microalbumin/total urine volume 2 mg/L Units converted. See lab report for original value. microalbumin/creatinine ratio, urine 9 MCG/MG CREAT mg/L <30 Lab Report: Comp. Metabolic Panel - Chemistry sodium, serum 142 mmol/L 279-305 0044/06/08 carbon dioxide, venous blood 27.6 mmol/L 21.0-32.0 potassium, serum 4.0 mmol/L 3.5-5.2 chloride, serum 105 mmol/L 98-107 blood glucose 95 mg/dL 65-110 urea nitrogen, blood 8 mg/dL 7-18 creatinine, serum 0.75 mg/dL 0.55-1.30 alanine aminotransferase (SGPT), serum 49 U/L 12-78 aspartate aminotransferase (SGOT), serum 28 U/L 15-37 calcium, serum 9.4 mg/dL 8.5-10.1 bilirubin, serum, total 0.30 mg/dL 0.00-1.00 sodium, serum 140 mmol/L 189-398 9827/08/08 carbon dioxide, venous blood 33.7 mmol/L 21.0-32.0 [...] mg/dL Encounters Code Encounter Date Provider Facility CPT-45214 Level 3 Est. Patient 10:00:25 CDT Suzan Boo [facility] CPT-27575 Level 3 Est. Patient 10:29:30 CDT Suzan Boo [facility] CPT-72670 Level 3 Est. Patient 11:04:38 CDT Renzo Thornton [facility] CPT-62019 Level 3 Est. Patient 11:15:58 [employer] PROFESSOR Renzo Thornton [facility] CPT-40502 Level 3 Est. Patient 15:28:23 [employer] COMM[employer] PROFESSOR Suzan Boo [facility] CPT-19288 Level 4 Est. Patient 10:20:54 [employer] PROFESSOR Suzan Boo [facility] CPT-47086 Level 3 Est. Patient 11:47:37 [employer] PROFESSOR Ahmet Carbajal MD [facility] CPT-33784 Level 3 Est. Patient 10:40:11 [employer] PROFESSOR Ahmet Carbajal MD [facility] CPT-85460 Level 3 Est. Patient 15:07:06 [employer] PROFESSOR Neeraj Collins MD [facility] CPT-19230 Level 4 Est. Patient 14:45:00 [employer] PROFESSOR Ahmet Carbajal MD [facility] CPT-70878 Level 3 Est. Patient 13:59:59 CDT Luigi Martínez [facility] CPT-58669 Level 3 Est. Patient 18:18:53 CDT Neeraj Collins MD [facility] CPT-83459 Level 3 Est. Patient 15:50:44 CDT Vishal Hui MD [facility] CPT-72199 Level 3 Est. Patient 11:36:17 CDT Ahmet Carbajal MD [facility] CPT-15347 Level 3 Est. Patient 13:29:16 CDT Vishal Hui MD [facility] CPT-40710 Level 3 Est. Patient 14:27:52 CDT Neeraj Collins MD [facility] CPT-44843 Level 3 Est. Patient 08:56:03 CDT Luigi Martínez [facility] CPT-44808 Level 4 Est. Patient 12:11:48 CDT Fabiola Johnson [facility] CPT-61618 Level 3 New Patient 16:53:37 CDT Albert Caldera MD [facility] CPT-23132 Level 3 Est. Patient 11:25:49 CDT Renzo Thornton DO [facility] CPT-85842 Level 3 Est. Patient 15:22:01 CDT Ahmet Carbajal MD [facility] CPT-81973 Level 4 Est. Patient 09:00:51 [employer] PROFESSOR Vishal Hui MD [facility] CPT-94490 Level 3 Est. Patient 11:37:33 [employer] PROFESSOR Vishal Hui MD [facility] CPT-87826 Level 3 Est. Patient 08:41:09 [employer] PROFESSOR Vishal Hui MD [facility] CPT-23494 Level 4 Est. Patient 10:19:35 [employer] PROFESSOR Vishal Hui MD [facility] CPT-47211 Level 3 Est. Patient 13:35:45 CDT Vishal Hui MD [facility] CPT-44249 Level 4 Est. Patient 10:08:37 CDT Vishal Hui MD [facility]-02911 Level 3 Est. Patient 11:22:10 CDT Vishal Hui MD [facility] CPT-90747 Level 3 Est. Patient 11:03:32 CDT Sahara Rodriguez MD [facility]-96616 Level 3 Est. Patient 09:41:35 CDT Vishal Hui MD [facility]-80378 Level 3 Est. Patient 12:00:41 CDT Neeraj Collins MD [facility]-48069 Level 3 Est. Patient 09:16:24 CDT Vishal Hui MD [facility] CPT-19074 Level 4 Est. Patient 13:59:09 CDT Neeraj Collins MD [facility] CPT-90995 Level 3 Est. Patient 15:19:43 CDT Renzo Thornton DO [facility] CPT-66484 Level 3 Est. Patient 18:10:26 CDT Sahara Rodriguez MD [facility]-55353 Level 3 Est. Patient 14:49:50 CDT Vishal Hui MD [facility]-42128 Level 4 Est. Patient 18:41:46 CDT Neeraj Collins MD [facility] CPT-08314 Level 4 Est. Patient 09:18:38 [employer]ICATION[employer] PROFESSOR Vishal Hui MD [facility]-26400 Level 3 Est. Patient 14:43:55 [employer]ICATION[employer] PROFESSOR Vishal Hui MD [facility] CPT-75532 Level 3 Est. Patient 15:26:33 [employer] COMM[employer] PROFESSOR Sahara Rodriguez MD [facility]-66468 Level 3 Est. Patient 10:32:14 M[employer] COMM[employer]ICATION[employer] PROFESSOR Vishal Hui MD [facility] CPT-24682 Level 3 Est. Patient 15:12:52 [employer] PROFESSOR Vishal Hui MD [facility] CPT-02591 Level 4 Est. Patient 09:19:27 CDT Vishal Hui MD [facility] CPT-26644 Level 3 Est. Patient 15:53:00 CDT Renzo Thornton [facility] CPT-24932 Level 3 Est. Patient 15:50:30 CDT Renzo Thornton [facility] CPT-72468 Level 3 Est. Patient 16:55:24 CDT Vishal Hui MD [facility] Procedures Code Procedure Name Date Entry Date Standard Description CPT-52669 Venipuncture Draw Fee 08:41:12 CDT CPT-23432 Abd compl w upright - XRAY USE ONLY 10:27:59 CDT 06/28 CPT-26153 Smoking Cessation counseling 11:15:58 [employer] PROFESSOR CPT-G0439 [facility] Annual Wellness Exam 09:30:58 [employer] PROFESSOR CPT-89559 TSH - LAB USE ONLY 08:50:26 [employer] PROFESSOR CPT-90707 CBC - LAB USE ONLY 08:50:26 [employer] PROFESSOR CPT-70385 Venipuncture Draw Fee 08:50:26 [employer] PROFESSOR CPT-02830 Abx/Therapy Injection 17:34:30 [employer] PROFESSOR CPT-95221 Nexplanon Removal with Reinsertion 14:09:32 CDT CPT-J7307 Nexplanon (Implant) 14:09:32 CDT CPT-OV Office Visit 14:09:32 CDT CPT-98325 UA w micro - LAB USE ONLY 16:21:13 CDT CPT-85004 Wet Mount - LAB USE ONLY 16:21:13 CDT CPT-66615 First Vx - Ix admin for Medicare patients 14:37:47 CDT CPT-90794 Fluzone Preservative Free Intramuscular Suspension 14:37 :47 CDT CPT-25150 Abx/Therapy Injection 13:54:22 CDT CPT-47864 Abx/Therapy Injection 08:47:09 CDT CPT-77931 Abx/Therapy Injection 13:29:56 CDT CPT-40362 Abx/Therapy Injection 08:36:16 CDT CPT-34286 Wet [place] - LAB USE ONLY 17:44:58 CDT CPT-49545 UA w micro - LAB USE ONLY 17:44:58 CDT CPT-16466 CMP - LAB USE ONLY 17:44:58 CDT CPT-64421 Venipuncture Draw Fee 17:44:58 CDT CPT-68903 Cervical Min 4V - XRAY USE ONLY 09:01:40 CDT CPT-52804 Chest 2V Frontal and Lat - XRAY USE ONLY 11:06:31 CDT CPT-37706 EKG Trac and Interp - XRAY USE ONLY 11:31:43 CDT 08/26 CPT-J3420 Vitamin B12 1000mcg (Cyanocobalamin) 08:10:26 [employer] PROFESSOR 04/12 CPT-43018 Abx/Therapy Injection 08:10:26 [employer] PROFESSOR CPT-G0438 Initial Annual Wellness Exam 19:01:01 [employer] COMM[employer]ICATION[employer] PROFESSOR CPT-J3420 Vitamin B12 1000mcg (Cyanocobalamin) 16:57:46 CDT 08/14 CPT-93123 Recombivax HB Injection Suspension 5 MCG/0.5ML 08:37:50 [employer]ICATION[employer] PROFESSOR CPT-71585 Immunization Single Admin 08:37:50 M[employer] COMM[employer]ICATION[employer] PROFESSOR CPT-J3420 Vitamin B12 1000mcg (Cyanocobalamin) 08:32:16 [employer]ICATION[employer] PROFESSOR 03/11 CPT-64906 Abx/Therapy Injection 08:32:16 M[employer] COMM[employer]ICATION[employer] PROFESSOR CPT-55675 Chest 2V Frontal and Lat 11:46:38 [employer] COMM[employer]ICATION[employer] PROFESSOR CPT-97392 Venipuncture Draw Fee 09:12:45 [employer] COMM[employer]ICATION[employer] PROFESSOR CPT-J3420 Vitamin B12 1000mcg (Cyanocobalamin) 08:50:15 [employer] PROFESSOR 02/08 CPT-68231 Abx/Therapy Injection 08:50:15 M[employer] COMM[employer]ICATION[employer] PROFESSOR CPT-Cryo Cryotherapy 10:19:35 [employer] PROFESSOR CPT-000 Give Appropriate Flu Vaccine 09:22:16 CDT CPT-J3420 Vitamin B12 1000mcg (Cyanocobalamin) 19:08:57 CDT 01/11 CPT-84740 Abx/Therapy Injection 19:08:57 CDT CPT-J3420 Vitamin B12 1000mcg (Cyanocobalamin) 08:19:08 CDT 12/11 CPT-87883 Abx/Therapy Injection 08:19:08 CDT CPT-J3420 Vitamin B12 1000mcg (Cyanocobalamin) 14:48:00 CDT 11/09 CPT-67821 Abx/Therapy Injection 14:47:59 CDT CPT-J3420 Vitamin B12 1000mcg (Cyanocobalamin) 08:34:04 CDT 10/09 CPT-98731 Abx/Therapy Injection 08:34:04 CDT CPT-J3420 Vitamin B12 1000mcg (Cyanocobalamin) 09:18:52 CDT 09/11 CPT-94876 Abx/Therapy Injection 09:18:52 CDT CPT-J3420 Vitamin B12 1000mcg (Cyanocobalamin) 08:35:44 CDT 09/04 CPT-21891 Abx/Therapy Injection 08:35:44 CDT CPT-89991 Immunization Single Admin 11:07:16 CDT CPT-39578 Hepatitis B adult IM 11:07:16 CDT CPT-J3420 Vitamin B12 1000mcg (Cyanocobalamin) 11:00:49 CDT 08/28 CPT-J1040 Depo Medrol 80 mg (Methyl Prednisolone Acetate) 11:00: 49 CDT CPT-31577 Abx/Therapy Injection 11:00:49 CDT CPT-J1040 Depo Medrol 80 mg (Methyl Prednisolone Acetate) 09:16: 23 CDT CPT-J3420 Vitamin B12 1000mcg (Cyanocobalamin) 08:27:05 CDT 08/20 CPT-13360 Abx/Therapy Injection 08:27:05 CDT CPT-71271 Recombivax HB Injection Suspension 5 MCG/0.5ML 10:00:41 CDT CPT-05163 Administration single or combination vaccine inc oral 10 :00:41 CDT CPT-94333 Sono transvag pelvis non OB uterus ovaries cervix 16:36: 57 CDT CPT-18352 LS spine comp w obliq 09:50:55 [employer]ICATION[employer] PROFESSOR CPT-27318 Abd compl w upright 09:50:55 M[employer] COMM[employer]ICATION[employer] PROFESSOR CPT-J1100 Decadron 4mg (Dexamethasone) 15:51:24 M[employer] COMM[employer]ICATION[employer] PROFESSOR CPT-J1030 Depo Medrol 40 mg (Methyl Prednisolone Acetate) 15:51: 24 [employer] COMM[employer]ICATIONS PROFESSOR CPT-05898 Abx/Therapy Injection 15:51:24 MASS COMM[employer]ICATIONS PROFESSOR CPT-J1100 Decadron 4mg (Dexamethasone) 15:26:33 M[employer] COMMUNICATIONS PROFESSOR CPT-J1030 Depo Medrol 40 mg (Methyl Prednisolone Acetate) 15:26: 33 M[employer] COMM[employer]ICATION[employer] PROFESSOR CPT-32809 Sono retroperitoneal complete kidneys and bladder 17:15: 30 CDT CPT-30836 Abd compl w upright 16:09:25 CDT CPT-J1100 Decadron 8mg (Dexamethasone) 17:07:57 CDT CPT-62574 Abx/Therapy Injection 17:07:57 CDT CPT-J1100 Decadron 8mg (Dexamethasone) 16:55:24 CDT CPT-03223 Chest 2V Frontal and Lat 16:32:44 CDT
--- OUTSIDE RECORDS SUMMARY | 2016-11-04 13:13 | XMS REPORT | Clinical Summary ---
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 is not sure of the dose.) DICLOFENAC POTASSIUM TABS 81455165018 Active Ahmet Carbajal MD Active MIRALAX PACK 1 po qd PRN Constipation POLYETHYLENE GLYCOL 3350 34673364342 No Longer Active Ahmet Carbajal MD Active MINIPRESS 2 MG CAPS 4 cap po at night PRAZOSIN HCL 93685045128 No Longer Active Ahmet Carbajal MD Active PIROXICAM 20 MG CAPS 1 cap po qd PRN Pain PIROXICAM 41549144587 No Longer Active Ahmet Carbajal MD Active TRAMADOL HCL 50 MG TABS 1-2 po TID PRN Pain TRAMADOL HCL 10685685628 No Longer Active Ahmet Carbajal MD Active METOPROLOL TARTRATE 50 MG TAB 1 po bid METOPROLOL TARTRATE 30209370299 No Longer Active Ahmet Carbajal MD Active ABILIFY 15 MG ORAL TABS 1 tab daily ARIPIPRAZOLE 21193654651 No Longer Active Ahmet Carbajal MD Active PROZAC 20 MG ORAL CAPS 1 tab daily FLUOXETINE HCL 76473023636 No Longer Active Ahmet Carbajal MD Active AMBIEN 5 MG ORAL TABS 1 tab at bedtime ZOLPIDEM TARTRATE 47480858161 No Longer Active Ahmet Carbajal MD Active PREDNISONE 20 MG TAB 2 tabs daily for 4 days, 1 tab daily for 4 days, 1/2 tab daily for 4 days PREDNISONE 10758163828 No Longer Active Ahmet Carbajal MD Active KEFLEX 500 MG CAP 1 po TID x 10 days CEPHALEXIN 92524317740 No Longer Active Vishal Hui MD Active ABILIFY MAINTENA 400 MG IM SUSR Injection once per month ARIPIPRAZOLE 83367484374 Active Juliet Kimbrough APRN Active IMITREX 50 MG ORAL TABS 1/2 tab every 6 hours prn SUMATRIPTAN SUCCINATE 36967777749 Active Luigi Martínez APRN Active TOPAMAX 50 MG ORAL TABS 1 tab twice daily TOPIRAMATE 64589723225 Active Vishal Hui MD Active SAPHRIS 5 MG SUBL 1 po bid ASENAPINE MALEATE 46213016224 No Longer Active Luigi Martínez APRN Active LATUDA 80 MG TABS Take one by mouth daily LURASIDONE HCL 87007020022 No Longer Active Luigi Martínez AVIONICS SYSTEM ENGINEER Active AMLODIPINE BESYLATE 5 MG TABS 1 tablet by mouth daily AMLODIPINE BESYLATE 42366040055 No Longer Active Luigi Martínez AVIONICS SYSTEM ENGINEER Active AMITRIPTYLINE HCL 100 MG TAB one at hs AMITRIPTYLINE HCL 77908819316 No Longer Active Vishal Hui MD Active TRAZODONE HCL 100 MG TAB take 1 at bedtime TRAZODONE HCL 92224596654 No Longer Active Vishal Hui MD Active VYVANSE 40 MG CAPS 1 daily, LISDEXAMFETAMINE DIMESYLATE 05204031991 No Longer Active Vishal Hui MD Active IBUPROFEN 600 MG TAB 1 po TID PRN IBUPROFEN 85977839008 No Longer Active Vishal Hui MD Active PROZAC 20 MG CAP Take one by mouth daily FLUOXETINE HCL 08107142899 No Longer Active Vishal Hui MD Active ZOFRAN 4 MG TABS 1 po q6hr PRN Nausea ONDANSETRON HCL Active Vishal Hui MD Active BACTRIM DS 800-160 MG TABS 1 pill by mouth twice daily SULFAMETHOXAZOLE-TRIMETHOPRIM 99357251143 No Longer Active Sahara Rodriguez MD PhD Active DIFLUCAN 150 MG TAB 1 tablet by mouth daily FLUCONAZOLE 09869572796 No Longer Active Vishal Hui MD Active TIZANIDINE HCL 4 MG TABS 1 po q6hr PRN Muscle Spasm/Back Pain TIZANIDINE HCL 42183555066 Active Vishal Hui MD Active CLINDAMYCIN HCL 150 MG CAPS 1 four times a day CLINDAMYCIN HCL 44971131804 No Longer Active Neeraj Collins MD Active KEFLEX 500 MG ORAL CAPS 1 cap QID by mouth CEPHALEXIN 40128602266 No Longer Active Neeraj Collins MD Active DIFLUCAN 150 MG TABS 1 pill every other day x 2 doses FLUCONAZOLE 10502928909 No Longer Active Sahara Rodriguez MD PhD Active MELATONIN 3 MG CAPS 2 po q hs MELATONIN 78433726588 No Longer Active Sahara Rodriguez MD PhD Active MULTIVITAMINS CAPS Take one by mouth daily MULTIPLE VITAMIN 70448946873 No Longer Active Sahara Rodriguez MD PhD Active BACTRIM DS 800-160 MG TAB 1 tab by mouth twice daily TRIMETHOPRIM-SULFAMETHOXAZOLE 45701326625 No Longer Active Sahara Rodriguez MD PhD Active [facility] PROBIOTIC ORAL CHEW 2 daily po PROBIOTIC PRODUCT 66262477089 No Longer Active Sahara Rodriguez MD PhD Active BACTRIM DS 800-160 MG TABS 1 po BID x 7 days SULFAMETHOXAZOLE-TRIMETHOPRIM 79431049836 No Longer Active Vishal Hui MD Active CHANTIX STARTING MONTH EARNEST 0.5 MG X 11 & 1 MG X 42 TABS 0.5mg daily for 3 days , then 0.5mg BID for 4 days, then 1mg BID VARENICLINE TARTRATE 55718278511 No Longer Active TAMARA Gray Active VERAPAMIL HCL CR 120 MG TAB CR 1 po bid VERAPAMIL HCL 29580979139 No Longer Active Vishal Hui MD Active METOPROLOL SUCCINATE 50 MG TB24 1 tablet by mouth daily METOPROLOL SUCCINATE 43709371366 No Longer Active Vishal Hui MD Active SAPHRIS 10 MG SUBL 1 tab po bid ASENAPINE MALEATE 32357765265 No Longer Active Vishal Hui MD Active LISINOPRIL 20 MG TABS 1 tab po qd LISINOPRIL 79915085322 No Longer Active Vishal Hui MD Active BENADRYL 25 MG CAP 2 po tid prn anxiety DIPHENHYDRAMINE HCL 44144831475 Active Vishal Hui MD Active LATUDA 20 MG TABS Take one by mouth daily LURASIDONE HCL 47682169099 No Longer Active Vishal Hui MD Active TRAZODONE HCL 50 MG TABS 1/2 tab po qd prn for anxiety TRAZODONE HCL 01877610266 No Longer Active Vishal Hui MD Active OMEPRAZOLE 20 MG TBEC 1 po q a.m. 30min prior to first food intake OMEPRAZOLE 65636378659 Active Vishal Hui MD Active RANITIDINE HCL 150 MG CAPS 1 twice a day RANITIDINE HCL 23570599005 Active Vishal Hui MD Active LINZESS 290 MCG CAPS Take one by mouth daily LINACLOTIDE 53253673403 No Longer Active Vishal Hui MD Active SAPHRIS 5 MG SUBL 1 tab po qd ASENAPINE MALEATE 29822513174 No Longer Active Vishal Hui MD Active ZALEPLON 10 MG CAPS 1 cap po every other night ZALEPLON 25922860435 No Longer Active Vishal Hui MD Active LYRICA 50 MG CAPS 1 tab po TID PREGABALIN 61058316283 No Longer Active Vishal Hui MD Active LORATADINE 10 MG TABS 1 tab po qd LORATADINE 90924957490 No Longer Active Vishal Hui MD Active VERAPAMIL HCL ER 180 MG CR-TABS 1 tab po bid VERAPAMIL HCL 70585366257 No Longer Active Vishal Hui MD Active MIRALAX POWD 1 capfull once daily POLYETHYLENE GLYCOL 3350 63149811371 No Longer Active Vishal Hui MD Active PREDNISONE 20 MG TABS 1 tab po qd PREDNISONE 68413928538 No Longer Active Renzo Thornton DO Active LEVOFLOXACIN 500 MG TABS 1 tab po qd LEVOFLOXACIN 71979289319 No Longer Active Renzo Thornton DO Active BUSPIRONE HCL 15 MG TABS 1 tab po TID BUSPIRONE HCL 88132178855 No Longer Active Renzo Thornton DO Active BENZTROPINE MESYLATE 1 MG TABS 1 tab po qd BENZTROPINE MESYLATE 77715839035 No Longer Active Renzo Thornton DO Active ATENOLOL 25 MG TABS 1 tab po qd ATENOLOL 03940280835 No Longer Active Renzo Thornton DO Active ESCITALOPRAM OXALATE 20 MG TABS 1 tab po qd ESCITALOPRAM OXALATE 55136597529 No Longer Active Renzo Thornton DO Active ADVAIR DISKUS 250-50 MCG/DOSE AEPB 1 puff BID FLUTICASONE-SALMETEROL 61270191476 No Longer Active Renzo Thornton DO Active PREDNISONE 20 MG TAB 2 tabs daily for 3 days, 1 tab daily for 3 days, 1/2 tab daily for 2 days PREDNISONE 34336440424 No Longer Active Vishal Hui MD Active CEFDINIR 300 MG CAPS by mouth twice a day CEFDINIR 72851256040 No Longer Active Vishal Hui MD Active LANSOPRAZOLE 30 MG CPDR 1 cap po qd LANSOPRAZOLE 28167754891 No Longer Active Vishal Hui MD Active BACLOFEN 20 MG TABS 1 tab po tid BACLOFEN 07894382326 No Longer Active Vishal Hui MD Active ADVAIR DISKUS 250-50 MCG/DOSE AEPB 1 puff BID ADVAIR DISKUS 250-50 MCG/DOSE AEPB FLUTICASONE-SALMETEROL Inactive ESCITALOPRAM OXALATE 20 MG TABS 1 tab po qd ESCITALOPRAM OXALATE 20 MG TABS 151264 ESCITALOPRAM OXALATE Inactive ATENOLOL 25 MG TABS 1 tab po qd ATENOLOL 25 MG TABS 548072 ATENOLOL Inactive BENZTROPINE MESYLATE 1 MG TABS 1 tab po qd BENZTROPINE MESYLATE 1 MG TABS 246892 BENZTROPINE MESYLATE Inactive BUSPIRONE HCL 15 MG TABS 1 tab po TID BUSPIRONE HCL 15 MG TABS 511540 BUSPIRONE HCL Inactive LEVOFLOXACIN 500 MG TABS 1 tab po qd LEVOFLOXACIN 500 MG TABS 998944 LEVOFLOXACIN Inactive PREDNISONE 20 MG TABS 1 tab po qd PREDNISONE 20 MG TABS 499311 PREDNISONE Inactive MIRALAX POWD 1 capfull once daily MIRALAX POWD 294940 POLYETHYLENE GLYCOL 3350 Inactive VERAPAMIL HCL ER 180 MG CR-TABS 1 tab po bid VERAPAMIL HCL ER 180 MG CR-TABS VERAPAMIL HCL Inactive LORATADINE 10 MG TABS 1 tab po qd LORATADINE 10 MG TABS 342721 LORATADINE Inactive LYRICA 50 MG CAPS 1 tab po TID LYRICA 50 MG CAPS PREGABALIN Inactive ZALEPLON 10 MG CAPS 1 cap po every other night ZALEPLON 10 MG CAPS 781190 ZALEPLON Inactive SAPHRIS 5 MG SUBL 1 tab po qd SAPHRIS 5 MG SUBL ASENAPINE MALEATE Inactive TRAZODONE HCL 50 MG TABS 1/2 tab po qd prn for anxiety TRAZODONE HCL 50 MG TABS 916528 TRAZODONE HCL Inactive LATUDA 20 MG TABS Take one by mouth daily LATUDA 20 MG TABS LURASIDONE HCL Inactive LISINOPRIL 20 MG TABS 1 tab po qd LISINOPRIL 20 MG TABS 002749 LISINOPRIL Inactive SAPHRIS 10 MG SUBL 1 [...] twice daily BACTRIM DS 800-160 MG TAB 450157 TRIMETHOPRIM-SULFAMETHOXAZOLE Inactive MULTIVITAMINS CAPS Take one by mouth daily MULTIVITAMINS CAPS MULTIPLE VITAMIN Inactive MELATONIN 3 MG CAPS 2 po q hs MELATONIN 3 MG CAPS 19950526 MELATONIN Inactive KEFLEX 500 MG ORAL CAPS 1 cap QID by mouth KEFLEX 500 MG ORAL CAPS 817012 CEPHALEXIN Inactive CLINDAMYCIN HCL 150 MG CAPS 1 four times a day CLINDAMYCIN HCL 150 MG CAPS 120164 CLINDAMYCIN HCL Inactive DIFLUCAN 150 MG TAB 1 tablet by mouth daily DIFLUCAN 150 MG TAB 547236 FLUCONAZOLE Inactive PROZAC 20 MG CAP Take one by mouth daily PROZAC 20 MG CAP 920459 FLUOXETINE HCL Inactive IBUPROFEN 600 MG TAB 1 po TID PRN IBUPROFEN 600 MG TAB 829605 IBUPROFEN Inactive VYVANSE 40 MG CAPS 1 daily, VYVANSE 40 MG CAPS LISDEXAMFETAMINE DIMESYLATE Inactive TRAZODONE HCL 100 MG TAB take 1 at bedtime TRAZODONE HCL 100 MG TAB 821343 TRAZODONE HCL Inactive AMITRIPTYLINE HCL 100 MG TAB one at hs AMITRIPTYLINE HCL 100 MG TAB 219234 AMITRIPTYLINE HCL Inactive AMLODIPINE BESYLATE 5 MG TABS 1 tablet by mouth daily AMLODIPINE BESYLATE 5 MG TABS 317598 AMLODIPINE BESYLATE Inactive LATUDA 80 MG TABS Take one by mouth daily LATUDA 80 MG TABS LURASIDONE HCL Inactive SAPHRIS 5 MG SUBL 1 po bid SAPHRIS 5 MG SUBL ASENAPINE MALEATE Inactive PREDNISONE 20 MG TAB 2 tabs daily for 4 days, 1 tab daily for 4 days, 1/2 tab daily for 4 days PREDNISONE 20 MG TAB 802526 PREDNISONE Inactive AMBIEN 5 MG ORAL TABS 1 tab at bedtime AMBIEN 5 MG ORAL TABS 524179 ZOLPIDEM TARTRATE Inactive PROZAC 20 MG ORAL CAPS 1 tab daily PROZAC 20 MG ORAL CAPS 358720 FLUOXETINE HCL Inactive ABILIFY 15 MG ORAL TABS 1 tab daily ABILIFY 15 MG ORAL TABS 947679 ARIPIPRAZOLE Inactive METOPROLOL TARTRATE 50 MG TAB 1 po bid METOPROLOL TARTRATE 50 MG TAB 304395 METOPROLOL TARTRATE Inactive TRAMADOL HCL 50 MG TABS 1-2 po TID PRN Pain TRAMADOL HCL 50 MG TABS 761400 TRAMADOL HCL Inactive PIROXICAM 20 MG CAPS 1 cap po qd PRN Pain PIROXICAM 20 MG CAPS 489556 PIROXICAM Inactive MINIPRESS 2 MG CAPS 4 cap po at night MINIPRESS 2 MG CAPS 881337 PRAZOSIN HCL Inactive MIRALAX PACK 1 po qd PRN Constipation MIRALAX PACK 840050 POLYETHYLENE GLYCOL 3350 Inactive CEFDINIR 300 MG CAPS by mouth twice a day CEFDINIR 300 MG CAPS 225559 CEFDINIR Inactive PREDNISONE 20 MG TAB 2 tabs daily for 3 days, 1 tab daily for 3 days, 1/2 tab daily for 2 days PREDNISONE 20 MG TAB 086409 PREDNISONE Inactive BACTRIM DS 800-160 MG TABS 1 po BID x 7 days BACTRIM DS 800-160 MG TABS 012024 SULFAMETHOXAZOLE-TRIMETHOPRIM Inactive DIFLUCAN 150 MG TABS 1 pill every other day x 2 doses DIFLUCAN 150 MG TABS 825374 FLUCONAZOLE Inactive BACTRIM DS 800-160 MG TABS 1 pill by mouth twice daily BACTRIM DS 800-160 MG TABS 473587 SULFAMETHOXAZOLE-TRIMETHOPRIM Inactive KEFLEX 500 MG CAP 1 po TID x 10 days KEFLEX 500 MG CAP 052601 CEPHALEXIN Inactive Advance Directives Directive Description Start [...] % 11.6-14.8 platelet count 394 10^3/MM^3 10*3/mm3 729-515 0961/01/11 leukocyte count, blood 13.8 10^3/MM^3 10*3/mm3 4.6-10.2 [...] Panel - Chemistry sodium, serum 139 mmol/L 004-930 6762/12/03 carbon dioxide, venous blood 28.5 mmol/L 21.0-32.0 [...] 5.5 % 4.3-6.0 cholesterol, serum 159 mg/dL 760-380 9281/12/03 triglyceride, serum, fasting 118 mg/dL 30-200 HDL [...] Panel - Chemistry sodium, serum 139 mmol/L 442-956 2386/12/22 carbon dioxide, venous blood 26.8 mmol/L 21.0-32.0 potassium, serum 4.2 mmol/L 3.5-5.2 chloride, serum 103 mmol/L 98-107 blood glucose 115 mg/dL 65-110 urea nitrogen, blood 20 mg/dL 7-18 creatinine, serum 0.90 mg/dL 0.55-1.30 alanine aminotransferase (SGPT), serum 38 U/L 12-78 aspartate aminotransferase (SGOT), serum 19 U/L 15-37 calcium, serum 8.6 mg/dL 8.5-10.1 bilirubin, serum, total 0.30 mg/dL 0.00-1.00 sodium, serum 139 mmol/L 469-371 5971/01/11 carbon dioxide, venous blood 26.6 mmol/L 21.0-32.0 potassium, serum 4.1 mmol/L 3.5-5.2 chloride, serum 100 mmol/L 98-107 blood glucose 86 mg/dL 65-110 urea nitrogen, blood 16 mg/dL 7-18 creatinine, serum 1.00 mg/dL 0.55-1.30 alanine aminotransferase (SGPT), serum 48 U/L - aspartate aminotransferase (SGOT), serum 17 U/L 15-37 calcium, serum 9.1 mg/dL 8.5-10.1 bilirubin, serum, total 0.40 mg/dL 0.00-1.00 sodium, serum 142 mmol/L 715-326 1026/06/08 carbon dioxide, venous blood 27.6 mmol/L 21.0-32.0 [...] Rate - Chemistry sodium, serum 139 mmol/L 398-324 9764/12/11 carbon dioxide, venous blood 25.4 mmol/L 21.0-32.0 [...] 5.0-8.5 Encounters Code Encounter Date Provider Facility CPT-61154 Level 3 Est. Patient 11:25:49 CDT Renzo Thornton DO [facility] CPT-84128 Level 3 Est. Patient 15:22:01 CDT Ahmet Carbajal MD [facility] CPT-51669 Level 4 Est. Patient 09:00:51 BIOLOGICAL SCIENCES PROFESSOR Vishal Hui MD [facility] CPT-70680 Level 3 Est. Patient 11:37:33 BIOLOGICAL SCIENCES PROFESSOR Vishal Hui MD [facility] CPT-59689 Level 3 Est. Patient 08:41:09 BIOLOGICAL SCIENCES PROFESSOR Vishal Hui MD [facility] CPT-62269 Level 4 Est. Patient 10:19:35 BIOLOGICAL SCIENCES PROFESSOR Vishal Hui MD [facility] CPT-85490 Level 3 Est. Patient 13:35:45 CDT Vishal Hui MD [facility] CPT-16374 Level 4 Est. Patient 10:08:37 CDT Vishal Hui MD [facility] CPT-48608 Level 3 Est. Patient 11:22:10 CDT Vishal Hui MD [facility] CPT-99243 Level 3 Est. Patient 11:03:32 CDT Sahara Rodriguez MD [facility]-56291 Level 3 Est. Patient 09:41:35 CDT Vishal Hui MD [facility]-16807 Level 3 Est. Patient 12:00:41 CDT Neeraj Collins MD [facility] [place]-09175 Level 3 Est. Patient 09:16:24 CDT Vishal Hui MD [facility] CPT-31564 Level 4 Est. Patient 13:59:09 CDT Neeraj Collins MD [facility] [place]-46722 Level 3 Est. Patient 15:19:43 CDT Renzo Thornton DO [facility] CPT-69812 Level 3 Est. Patient 18:10:26 CDT Sahara Rodriguez MD [facility]-39837 Level 3 Est. Patient 14:49:50 CDT Vishal Hui MD [facility] [place]-13257 Level 4 Est. Patient 18:41:46 CDT Neeraj Collins MD [facility] [place]-65328 Level 4 Est. Patient 09:18:38 BIOLOGICAL SCIENCES PROFESSOR Vishal Hui MD [facility] CPT-87801 Level 3 Est. Patient 14:43:55 BIOLOGICAL SCIENCES PROFESSOR Vishal Hui MD [facility] CPT-11452 Level 3 Est. Patient 15:26:33 BIOLOGICAL SCIENCES PROFESSOR Sahara Rodriguez MD [facility]-15619 Level 3 Est. Patient 10:32:14 BIOLOGICAL SCIENCES PROFESSOR Vishal Hui MD [facility] [place]-93608 Level 3 Est. Patient 15:12:52 BIOLOGICAL SCIENCES PROFESSOR Vishal Hui MD [facility] [place]-20253 Level 4 Est. Patient 09:19:27 CDT Vishal Hui MD [facility] CPT-87939 Level 3 Est. Patient 15:53:00 CDT Renzo Thornton [facility] CPT-06521 Level 3 Est. Patient 15:50:30 CDT Renzo Thornton [facility] CPT-44944 Level 3 Est. Patient 16:55:24 CDT Vishal Hui MD [facility] Procedures Code Procedure Name Date Entry Date Standard Description CPT-58426 EKG Trac and Interp - XRAY USE ONLY 11:31:43 CDT 08/26 CPT-J3420 Vitamin B12 1000mcg (Cyanocobalamin) 08:10:26 BIOLOGICAL SCIENCES PROFESSOR 04/12 CPT-59165 Abx/Therapy Injection 08:10:26 BIOLOGICAL SCIENCES PROFESSOR CPT-G0438 Initial Annual Wellness Exam 19:01:01 BIOLOGICAL SCIENCES PROFESSOR CPT-J3420 Vitamin B12 1000mcg (Cyanocobalamin) 16:57:46 CDT 08/14 CPT-33961 Recombivax HB Injection Suspension 5 MCG/0.5ML 08:37:50 BIOLOGICAL SCIENCES PROFESSOR CPT-28501 Immunization Single Admin 08:37:50 BIOLOGICAL SCIENCES PROFESSOR CPT-J3420 Vitamin B12 1000mcg (Cyanocobalamin) 08:32:16 BIOLOGICAL SCIENCES PROFESSOR 03/11 CPT-19037 Abx/Therapy Injection 08:32:16 BIOLOGICAL SCIENCES PROFESSOR CPT-39591 Chest 2V Frontal and Lat 11:46:38 BIOLOGICAL SCIENCES PROFESSOR CPT-05912 Venipuncture Draw Fee 09:12:45 BIOLOGICAL SCIENCES PROFESSOR CPT-J3420 Vitamin B12 1000mcg (Cyanocobalamin) 08:50:15 BIOLOGICAL SCIENCES PROFESSOR 02/08 CPT-72829 Abx/Therapy Injection 08:50:15 BIOLOGICAL SCIENCES PROFESSOR CPT-Cryo Cryotherapy 10:19:35 BIOLOGICAL SCIENCES PROFESSOR CPT-000 Give Appropriate Flu Vaccine 09:22:16 CDT CPT-J3420 Vitamin B12 1000mcg (Cyanocobalamin) 19:08:57 CDT 01/11 CPT-10263 Abx/Therapy Injection 19:08:57 CDT CPT-J3420 Vitamin B12 1000mcg (Cyanocobalamin) 08:19:08 CDT 12/11 CPT-67638 Abx/Therapy Injection 08:19:08 CDT CPT-J3420 Vitamin B12 1000mcg (Cyanocobalamin) 14:48:00 CDT 11/09 CPT-42900 Abx/Therapy Injection 14:47:59 CDT CPT-J3420 Vitamin B12 1000mcg (Cyanocobalamin) 08:34:04 CDT 10/09 CPT-54991 Abx/Therapy Injection 08:34:04 CDT CPT-J3420 Vitamin B12 1000mcg (Cyanocobalamin) 09:18:52 CDT 09/11 CPT-29735 Abx/Therapy Injection 09:18:52 CDT CPT-J3420 Vitamin B12 1000mcg (Cyanocobalamin) 08:35:44 CDT 09/04 CPT-00260 Abx/Therapy Injection 08:35:44 CDT CPT-03737 Immunization Single Admin 11:07:16 CDT CPT-22637 Hepatitis B adult IM 11:07:16 CDT CPT-J3420 Vitamin B12 1000mcg (Cyanocobalamin) 11:00:49 CDT 08/28 CPT-J1040 Depo Medrol 80 mg (Methyl Prednisolone Acetate) 11:00: 49 CDT CPT-73784 Abx/Therapy Injection 11:00:49 CDT CPT-J1040 Depo Medrol 80 mg (Methyl Prednisolone Acetate) 09:16: 23 CDT CPT-J3420 Vitamin B12 1000mcg (Cyanocobalamin) 08:27:05 CDT 08/20 CPT-15833 Abx/Therapy Injection 08:27:05 CDT CPT-56996 Recombivax HB Injection Suspension 5 MCG/0.5ML 10:00:41 CDT CPT-17852 Administration single or combination vaccine inc oral 10 :00:41 CDT CPT-39103 Sono transvag pelvis non OB uterus ovaries cervix 16:36: 57 CDT CPT-18243 LS spine comp w obliq 09:50:55 BIOLOGICAL SCIENCES PROFESSOR CPT-56585 Abd compl w upright 09:50:55 BIOLOGICAL SCIENCES PROFESSOR CPT-J1100 Decadron 4mg (Dexamethasone) 15:51:24 BIOLOGICAL SCIENCES PROFESSOR CPT-J1030 Depo Medrol 40 mg (Methyl Prednisolone Acetate) 15:51: 24 BIOLOGICAL SCIENCES PROFESSOR CPT-14984 Abx/Therapy Injection 15:51:24 BIOLOGICAL SCIENCES PROFESSOR CPT-J1100 Decadron 4mg (Dexamethasone) 15:26:33 BIOLOGICAL SCIENCES PROFESSOR CPT-J1030 Depo Medrol 40 mg (Methyl Prednisolone Acetate) 15:26: 33 BIOLOGICAL SCIENCES PROFESSOR CPT-36878 Sono retroperitoneal complete kidneys and bladder 17:15: 30 CDT CPT-09935 Abd compl w upright 16:09:25 CDT CPT-J1100 Decadron 8mg (Dexamethasone) 17:07:57 CDT CPT-20978 Abx/Therapy Injection 17:07:57 CDT CPT-J1100 Decadron 8mg (Dexamethasone) 16:55:24 CDT CPT-94179 Chest 2V Frontal and Lat 16:32:44 CDT
--- OUTSIDE RECORDS SUMMARY | 2016-11-04 13:16 | XMS REPORT | Clinical Summary ---
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 Hypoxemia Neck pain 723.1 Resolved Vishal [...] 6 hours as needed for cough GUAIFENESIN-CODEINE 27878492294 Active Ahmet Carbajal MD Active PREDNISONE 20 MG TABS 2 daily for 5 days then 1 daily for 5 days PREDNISONE 51559859700 Active Ahmet Carbajal MD Active LAMICTAL 100 MG ORAL TABS 1 tab q.d LAMOTRIGINE 06833769200 Active Ahmet Carbajal MD Active BENADRYL 25 MG CAP 4 po at bedtime for insomnia DIPHENHYDRAMINE HCL 36028675928 No Longer Active Ahmet Carbajal MD Active ADVAIR DISKUS 250-50 MCG/DOSE INH AEPB 1 puff twice a day for asthma FLUTICASONE-SALMETEROL 37256951774 No Longer Active Ahmet Carbajal MD Active KLONOPIN 1 MG ORAL TABS 1 tab po TID CLONAZEPAM 06905439036 No Longer Active Ahmet Carbajal MD Active ABILIFY MAINTENA 400 MG IM SUSR 400mg injection every 26 days ARIPIPRAZOLE 55965918256 No Longer Active Ahmet Carbajal MD Active HALOPERIDOL 10 MG ORAL TABS 1 tab q.d HALOPERIDOL 78143572659 Active Ahmet Carbajal MD Active ASPIRIN 325 MG ORAL TABS 1 tab q.d ASPIRIN 67541622823 Active Ahmet Carbajal MD Active HYDROCODONE-ACETAMINOPHEN 5-325 MG ORAL TABS 1 tab two times a day HYDROCODONE-ACETAMINOPHEN 10609388560 Active Ahmet Carbajal MD Active TRAMADOL HCL 50 MG TABS 1/2-1 tab TID PRN TRAMADOL HCL 18862661901 No Longer Active Ahmet Carbajal MD Active BACTRIM DS 800-160 MG TABS 1 twice a day SULFAMETHOXAZOLE- TRIMETHOPRIM 71331787876 No Longer Active Amhet Carbajal MD Active PROAIR HFA 108 (90 BASE) MCG/ACT AERS 2 puffs four times a day as needed 2015 ALBUTEROL SULFATE 53248722953 Active Ahmet Carbajal MD Active EQ NICOTINE 21 MG/24HR TRANS PT24 Apply daily to stop smoking NICOTINE 75205766305 Active Ahmet Carbajal MD Active MONISTAT 7 COMBO PACK WOODROW 100 & 2 MG-% (9GM) VAG KIT 1 applicatorful per vagina q pm x 7 MICONAZOLE NITRATE 66382907791 No Longer Active Ahmet Carbajal MD Active FLAGYL 500 MG TAB 1 tablet by mouth bid METRONIDAZOLE 55757382954 No Longer Active Ahmet Carbajal MD Active OXYCODONE HCL ER 10 MG ORAL T12A 1/2 tab by mouth every 4 hours prn OXYCODONE HCL 90246469335 No Longer Active Ahmet Carbajal MD Active METHYLPREDNISOLONE 4 MG ORAL TABS po daily METHYLPREDNISOLONE 78603064322 No Longer Active Ahmet Carbajal MD Active LEVOFLOXACIN 500 MG ORAL TABS po daily LEVOFLOXACIN 88226223471 No Longer Active Ahmet Carbajal MD Active VIIBRYD 10 MG ORAL TABS Take 1 tablet once a day VILAZODONE HCL 02184339887 No Longer Active Ahmet Carbajal MD Active TOPAMAX 50 MG ORAL TABS 1 tab twice daily TOPIRAMATE 68389287029 No Longer Active Ahmet Carbajal MD Active DICLOFENAC SODIUM 50 MG TBEC 1 tablet by mouth four times daily PRN Pain 2015 DICLOFENAC SODIUM 43822997412 No Longer Active Ahmet Carbajal MD Active ADZENYS XR-ODT 6.3 MG ORAL TBED 1 tab po daily for ADHD AMPHETAMINE 77821290055 No Longer Active Ahmet Carbajal MD Active CHANTIX 1 MG TABS 1 twice a day to help quit smoking VARENICLINE TARTRATE 09908222927 No Longer Active Dipika Burgos MD Active CHANTIX STARTING MONTH EARNEST 0.5 MG X 11 & 1 MG X 42 TABS take as directed 2015 VARENICLINE TARTRATE 93907539112 No Longer Active Dipika Burgos MD Active TESSALON PERLES 100 MG CAP 1 to 2 tablets by mouth 3 times daily as needed for cough BENZONATATE 62530404416 No Longer Active Luigi Martínez APRN Active IMITREX 50 MG ORAL TABS 0.5 po x 1 PRN Headache. May repeat dose x 1 in 2 hours if needed SUMATRIPTAN SUCCINATE 79239073781 Active TAMARA Casey Active HYDROCODONE-ACETAMINOPHEN 5-325 MG TABS 1 to 2 four times a day as needed for pain use until can be seen by specialist HYDROCODONE- ACETAMINOPHEN 74029339797 No Longer Active Vishal Hui MD Active PROAIR HFA 108 (90 BASE) MCG/ACT AERS 2 puffs four times a day as needed 2015 ALBUTEROL SULFATE 09606963180 No Longer Active Vishal Hui MD Active PREDNISONE 20 MG TABS 2 daily for 5 days then 1 daily for 5 days PREDNISONE 87245390710 No Longer Active Vishal Hui MD Active ZITHROMAX Z-EARNEST 250 MG TABS 2 today and then 1 daily for 4 days AZITHROMYCIN 01880438935 No Longer Active Vishal Hui MD Active DICLOFENAC POTASSIUM TABS Take 1 tablet twice a day (pt. is not sure of the dose.) DICLOFENAC POTASSIUM TABS 15419790516 No Longer Active Vishal Hui MD Active VERAPAMIL HCL ER 120 MG ORAL CR-TABS Take 1 tablet by mouth twice a day. VERAPAMIL HCL 32864755519 Active Vishal Hui MD Active FLAGYL 500 MG TAB 1 tablet by mouth bid METRONIDAZOLE 72245965718 No Longer Active Vishal Hui MD Active FLUTICASONE PROPIONATE 50 MCG/ACT SUSP 2 sprays each nostril daily before bed. FLUTICASONE PROPIONATE 09649682771 Active Fabiola Johnson APRN Active VALIUM 5 MG TAB Take 1-2 tablets daily DIAZEPAM 50807863466 No Longer Active Fabiola Johnson APRN Active METOPROLOL TARTRATE 25 MG ORAL TABS 1/2 tablet twice daily for heart rate and blood pressure METOPROLOL TARTRATE 69774205987 No Longer Active Fabiola Johnson APRN Active MIRALAX ORAL POWD 17GMS DAILY IN WATER POLYETHYLENE GLYCOL 3350 20380477367 Active Vishal Hui MD Active MIRALAX PACK 1 po qd PRN Constipation POLYETHYLENE GLYCOL 3350 21584840537 No Longer Active Ahmet Carbajal MD Active MINIPRESS 2 MG CAPS 4 cap po at night PRAZOSIN HCL 03527312376 No Longer Active Ahmet Carbajal MD Active PIROXICAM 20 MG CAPS 1 cap po qd PRN Pain PIROXICAM 71450413230 No Longer Active Ahmet Carbajal MD Active TRAMADOL HCL 50 MG TABS 1-2 po TID PRN Pain TRAMADOL HCL 57248788849 No Longer Active Ahmet Carbajal MD Active METOPROLOL TARTRATE 50 MG TAB 1 po bid METOPROLOL TARTRATE 65788556351 No Longer Active Ahmet Carbajal MD Active ABILIFY 15 MG ORAL TABS 1 tab daily ARIPIPRAZOLE 53254555991 No Longer Active Ahmet Carbajal MD Active PROZAC 20 MG ORAL CAPS 1 tab daily FLUOXETINE HCL 57276624393 No Longer Active Ahmet Carbajal MD Active AMBIEN 5 MG ORAL TABS 1 tab at bedtime ZOLPIDEM TARTRATE 40264871973 No Longer Active Ahmet Carbajal MD Active PREDNISONE 20 MG TAB 2 tabs daily for 4 days, 1 tab daily for 4 days, 1/2 tab daily for 4 days PREDNISONE 73357290587 No Longer Active Ahmet Carbajal MD Active KEFLEX 500 MG CAP 1 po TID x 10 days CEPHALEXIN 46534376012 No Longer Active Vishal Hui MD Active SAPHRIS 5 MG SUBL 1 po bid ASENAPINE MALEATE 97898856651 No Longer Active Jillina Fralebron [employer]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 LATUDA 80 MG TABS Take one by mouth daily LURASIDONE HCL 03817112658 No Longer Active Jillina Frazelephraim SMALL [employer]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 AMLODIPINE BESYLATE 5 MG TABS 1 tablet by mouth daily AMLODIPINE BESYLATE 45649741191 No Longer Active Jillina Fradwightl SMALL APPL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 AMITRIPTYLINE HCL 100 MG TAB one at hs AMITRIPTYLINE HCL 20942444822 No Longer Active Vishal Hui MD Active TRAZODONE HCL 100 MG TAB take 1 at bedtime TRAZODONE HCL 08165817172 No Longer Active Vishal Hui MD Active VYVANSE 40 MG CAPS 1 daily, LISDEXAMFETAMINE DIMESYLATE 27993164916 No Longer Active Vishal Hui MD Active IBUPROFEN 600 MG TAB 1 po TID PRN IBUPROFEN 04609792533 No Longer Active Vishal Hui MD Active PROZAC 20 MG CAP Take one by mouth daily FLUOXETINE HCL 96732644181 No Longer Active Vishal Hui MD Active ZOFRAN 4 MG TABS 1 po q6hr PRN Nausea ONDANSETRON HCL Active Vishal Hui MD Active BACTRIM DS 800-160 MG TABS 1 pill by mouth twice daily SULFAMETHOXAZOLE-TRIMETHOPRIM 74168480965 No Longer Active Sahara Rodriguez MD PhD Active DIFLUCAN 150 MG TAB 1 tablet by mouth daily FLUCONAZOLE 70706809915 No Longer Active Vishal Hui MD Active TIZANIDINE HCL 4 MG TABS 1 po q6hr PRN Muscle Spasm/Back Pain TIZANIDINE HCL 01827451229 Active Vishal Hui MD Active CLINDAMYCIN HCL 150 MG CAPS 1 four times a day CLINDAMYCIN HCL 21320955732 No Longer Active Neeraj Collins MD Active KEFLEX 500 MG ORAL CAPS 1 cap QID by mouth CEPHALEXIN 67216781777 No Longer Active Neeraj Collins MD Active DIFLUCAN 150 MG TABS 1 pill every other day x 2 doses FLUCONAZOLE 97632296742 No Longer Active Sahara Rodriguez MD PhD Active MELATONIN 3 MG CAPS 2 po q hs MELATONIN 60448944954 No Longer Active Sahara Rodriguez MD PhD Active MULTIVITAMINS CAPS Take one by mouth daily MULTIPLE VITAMIN 09415733802 No Longer Active Sahara Rodriguez MD PhD Active BACTRIM DS 800-160 MG TAB 1 tab by mouth twice daily TRIMETHOPRIM-SULFAMETHOXAZOLE 70104308845 No Longer Active Sahara Rodriguez MD PhD Active [facility] PROBIOTIC ORAL CHEW 2 daily po PROBIOTIC PRODUCT 19198503020 No Longer Active Sahara Rodriguez MD PhD Active BACTRIM DS 800-160 MG TABS 1 po BID x 7 days SULFAMETHOXAZOLE-TRIMETHOPRIM 38389011129 No Longer Active Vishal Hui MD Active CHANTIX STARTING MONTH EARNEST 0.5 MG X 11 & 1 MG X 42 TABS 0.5mg daily for 3 days , then 0.5mg BID for 4 days, then 1mg BID VARENICLINE TARTRATE 39276186132 No Longer Active TAMARA Gray Active VERAPAMIL HCL CR 120 MG TAB CR 1 po bid VERAPAMIL HCL 40670708348 No Longer Active Vishal Hui MD Active METOPROLOL SUCCINATE 50 MG TB24 1 tablet by mouth daily METOPROLOL SUCCINATE 67455640715 No Longer Active Vishal Hui MD Active SAPHRIS 10 MG SUBL 1 tab po bid ASENAPINE MALEATE 78191350428 No Longer Active Vishal Hui MD Active LISINOPRIL 20 MG TABS 1 tab po qd LISINOPRIL 00808036179 No Longer Active Vishal Hui MD Active LATUDA 20 MG TABS Take one by mouth daily LURASIDONE HCL 82620447312 No Longer Active Vishal Hui MD Active TRAZODONE HCL 50 MG TABS 1/2 tab po qd prn for anxiety TRAZODONE HCL 62262385812 No Longer Active Vishal Hui MD Active OMEPRAZOLE 20 MG TBEC 1 po q a.m. 30min prior to first food intake OMEPRAZOLE 40854353997 Active Vishal Hui MD Active RANITIDINE HCL 150 MG CAPS 1 twice a day RANITIDINE HCL 47816390614 Active Luigi Martínez APRN Active LINZESS 290 MCG CAPS Take one by mouth daily LINACLOTIDE 11387828904 No Longer Active Vishal Hui MD Active SAPHRIS 5 MG SUBL 1 tab po qd ASENAPINE MALEATE 36440276991 No Longer Active Vishal Hui MD Active ZALEPLON 10 MG CAPS 1 cap po every other night ZALEPLON 25458142907 No Longer Active Vishal Hui MD Active LYRICA 50 MG CAPS 1 tab po TID PREGABALIN 71658014969 No Longer Active Vishal Hui MD Active LORATADINE 10 MG TABS 1 tab po qd LORATADINE 60367175223 No Longer Active Vishal Hui MD Active VERAPAMIL HCL ER 180 MG CR-TABS 1 tab po bid VERAPAMIL HCL 74495918030 No Longer Active Vishal Hui MD Active MIRALAX POWD 1 capfull once daily POLYETHYLENE GLYCOL 3350 63204926366 No Longer Active Vishal Hui MD Active PREDNISONE 20 MG TABS 1 tab po qd PREDNISONE 80831759830 No Longer Active Renzo Thornton DO Active LEVOFLOXACIN 500 MG TABS 1 tab po qd LEVOFLOXACIN 69832579749 No Longer Active Renzo Thornton DO Active BUSPIRONE HCL 15 MG TABS 1 tab po TID BUSPIRONE HCL 24329427971 No Longer Active Renzo Thornton DO Active BENZTROPINE MESYLATE 1 MG TABS 1 tab po qd BENZTROPINE MESYLATE 80322000955 No Longer Active Renzo Thornton DO Active ATENOLOL 25 MG TABS 1 tab po qd ATENOLOL 81944600607 No Longer Active Renzo Thornton DO Active ESCITALOPRAM OXALATE 20 MG TABS 1 tab po qd ESCITALOPRAM OXALATE 53513263942 No Longer Active Renzo Thornton DO Active ADVAIR DISKUS 250-50 MCG/DOSE AEPB 1 puff BID FLUTICASONE-SALMETEROL 25126409225 No Longer Active Renzo Thornton DO Active PREDNISONE 20 MG TAB 2 tabs daily for 3 days, 1 tab daily for 3 days, 1/2 tab daily for 2 days PREDNISONE 96258779090 No Longer Active Vishal Hui MD Active CEFDINIR 300 MG CAPS by mouth twice a day CEFDINIR 79915342902 No Longer Active Vishal Hui MD Active LANSOPRAZOLE 30 MG CPDR 1 cap po qd LANSOPRAZOLE 18060221896 No Longer Active Vishal Hui MD Active BACLOFEN 20 MG TABS 1 tab po tid BACLOFEN 67799195041 No Longer Active Vishal Hui MD Active ADVAIR DISKUS 250-50 MCG/DOSE AEPB 1 puff BID ADVAIR DISKUS 250-50 MCG/DOSE AEPB FLUTICASONE-SALMETEROL Inactive ESCITALOPRAM OXALATE 20 MG TABS 1 tab po qd ESCITALOPRAM OXALATE 20 MG TABS 879930 ESCITALOPRAM OXALATE Inactive ATENOLOL 25 MG TABS 1 tab po qd ATENOLOL 25 MG TABS 069093 ATENOLOL Inactive BENZTROPINE MESYLATE 1 MG TABS 1 tab po qd BENZTROPINE MESYLATE 1 MG TABS 453720 BENZTROPINE MESYLATE Inactive BUSPIRONE HCL 15 MG TABS 1 tab po TID BUSPIRONE HCL 15 MG TABS 462836 BUSPIRONE HCL Inactive LEVOFLOXACIN 500 MG TABS 1 tab po qd LEVOFLOXACIN 500 MG TABS 053338 LEVOFLOXACIN Inactive PREDNISONE 20 MG TABS 1 tab po qd PREDNISONE 20 MG TABS 266863 PREDNISONE Inactive MIRALAX POWD 1 capfull once daily MIRALAX POWD 735338 POLYETHYLENE GLYCOL 3350 Inactive VERAPAMIL HCL ER 180 MG CR-TABS 1 tab po bid VERAPAMIL HCL ER 180 MG CR-TABS VERAPAMIL HCL Inactive LORATADINE 10 MG TABS 1 tab po qd LORATADINE 10 MG TABS 629943 LORATADINE Inactive LYRICA 50 MG CAPS 1 tab po TID LYRICA 50 MG CAPS PREGABALIN Inactive ZALEPLON 10 MG CAPS 1 cap po every other night ZALEPLON 10 MG CAPS 469585 ZALEPLON Inactive SAPHRIS 5 MG SUBL 1 tab po qd SAPHRIS 5 MG SUBL ASENAPINE MALEATE Inactive TRAZODONE HCL 50 MG TABS 1/2 tab po qd prn for anxiety TRAZODONE HCL 50 MG TABS 115770 TRAZODONE HCL Inactive LATUDA 20 MG TABS Take one by mouth daily LATUDA 20 MG TABS LURASIDONE HCL Inactive LISINOPRIL 20 MG TABS 1 tab po qd LISINOPRIL 20 MG TABS 722317 LISINOPRIL Inactive SAPHRIS 10 MG SUBL 1 [...] twice daily BACTRIM DS 800-160 MG TAB 850241 TRIMETHOPRIM-SULFAMETHOXAZOLE Inactive MULTIVITAMINS CAPS Take one by mouth daily MULTIVITAMINS CAPS MULTIPLE VITAMIN Inactive MELATONIN 3 MG CAPS 2 po q hs MELATONIN 3 MG CAPS 470806 MELATONIN Inactive KEFLEX 500 MG ORAL CAPS 1 cap QID by mouth KEFLEX 500 MG ORAL CAPS 960032 CEPHALEXIN Inactive CLINDAMYCIN HCL 150 MG CAPS 1 four times a day CLINDAMYCIN HCL 150 MG CAPS 028984 CLINDAMYCIN HCL Inactive DIFLUCAN 150 MG TAB 1 tablet by mouth daily DIFLUCAN 150 MG TAB 394469 FLUCONAZOLE Inactive PROZAC 20 MG CAP Take one by mouth daily PROZAC 20 MG CAP 751179 FLUOXETINE HCL Inactive IBUPROFEN 600 MG TAB 1 po TID PRN IBUPROFEN 600 MG TAB 391987 IBUPROFEN Inactive VYVANSE 40 MG CAPS 1 daily, VYVANSE 40 MG CAPS LISDEXAMFETAMINE DIMESYLATE Inactive TRAZODONE HCL 100 MG TAB take 1 at bedtime TRAZODONE HCL 100 MG TAB 933227 TRAZODONE HCL Inactive AMITRIPTYLINE HCL 100 MG TAB one at hs AMITRIPTYLINE HCL 100 MG TAB 169309 AMITRIPTYLINE HCL Inactive AMLODIPINE BESYLATE 5 MG TABS 1 tablet by mouth daily AMLODIPINE BESYLATE 5 MG TABS 892950 AMLODIPINE BESYLATE Inactive LATUDA 80 MG TABS Take one by mouth daily LATUDA 80 MG TABS LURASIDONE HCL Inactive SAPHRIS 5 MG SUBL 1 po bid SAPHRIS 5 MG SUBL ASENAPINE MALEATE Inactive PREDNISONE 20 MG TAB 2 tabs daily for 4 days, 1 tab daily for 4 days, 1/2 tab daily for 4 days PREDNISONE 20 MG TAB 858963 PREDNISONE Inactive AMBIEN 5 MG ORAL TABS 1 tab at bedtime AMBIEN 5 MG ORAL TABS 554077 ZOLPIDEM TARTRATE Inactive PROZAC 20 MG ORAL CAPS 1 tab daily PROZAC 20 MG ORAL CAPS 082092 FLUOXETINE HCL Inactive ABILIFY 15 MG ORAL TABS 1 tab daily ABILIFY 15 MG ORAL TABS 601973 ARIPIPRAZOLE Inactive METOPROLOL TARTRATE 50 MG TAB 1 po bid METOPROLOL TARTRATE 50 MG TAB 480055 METOPROLOL TARTRATE Inactive TRAMADOL HCL 50 MG TABS 1-2 po TID PRN Pain TRAMADOL HCL 50 MG TABS 488786 TRAMADOL HCL Inactive PIROXICAM 20 MG CAPS 1 cap po qd PRN Pain PIROXICAM 20 MG CAPS 811477 PIROXICAM Inactive MINIPRESS 2 MG CAPS 4 cap po at night MINIPRESS 2 MG CAPS 071563 PRAZOSIN HCL Inactive MIRALAX PACK 1 po qd PRN Constipation MIRALAX PACK 359671 POLYETHYLENE GLYCOL 3350 Inactive METOPROLOL TARTRATE 25 MG ORAL TABS 1/2 tablet twice daily for heart rate and blood pressure METOPROLOL TARTRATE 25 MG ORAL TABS 995620 METOPROLOL TARTRATE Inactive VALIUM 5 MG TAB Take 1-2 tablets daily VALIUM 5 MG TAB 580084 DIAZEPAM Inactive FLAGYL 500 MG TAB 1 tablet by mouth bid FLAGYL 500 MG TAB 859830 METRONIDAZOLE Inactive DICLOFENAC POTASSIUM TABS Take 1 tablet twice a day (pt. is not sure of the dose.) DICLOFENAC POTASSIUM TABS DICLOFENAC POTASSIUM TABS Inactive ZITHROMAX Z-EARNEST 250 MG TABS 2 today and then 1 daily for 4 days ZITHROMAX Z-EARNEST 250 MG TABS 4355923 AZITHROMYCIN Inactive PREDNISONE 20 MG TABS 2 daily for 5 days then 1 daily for 5 days PREDNISONE 20 MG TABS 844234 PREDNISONE Inactive PROAIR HFA 108 (90 BASE) MCG/ACT AERS 2 puffs four times a day as needed 2015 PROAIR HFA 108 (90 BASE) MCG/ACT AERS ALBUTEROL SULFATE Inactive HYDROCODONE-ACETAMINOPHEN 5-325 MG TABS 1 to 2 four times a day as needed for pain use until can be seen by specialist HYDROCODONE- ACETAMINOPHEN 5-325 MG TABS 206143 HYDROCODONE-ACETAMINOPHEN Inactive TESSALON PERLES 100 MG CAP 1 to 2 tablets by mouth 3 times daily as needed for cough TESSALON PERLES 100 MG CAP 456993 BENZONATATE Inactive CHANTIX STARTING MONTH EARNEST 0.5 [...] PRN Pain 2015 DICLOFENAC SODIUM [address] [facility] 336901 DICLOFENAC SODIUM Inactive TOPAMAX 50 MG ORAL TABS 1 tab twice daily TOPAMAX 50 MG ORAL TABS 966979 TOPIRAMATE Inactive VIIBRYD 10 MG ORAL TABS Take 1 tablet once a day VIIBRYD 10 MG ORAL TABS VILAZODONE HCL Inactive LEVOFLOXACIN 500 MG ORAL TABS po daily LEVOFLOXACIN 500 MG ORAL TABS 547697 LEVOFLOXACIN Inactive METHYLPREDNISOLONE 4 MG ORAL TABS po daily METHYLPREDNISOLONE 4 MG ORAL TABS 362772 METHYLPREDNISOLONE Inactive OXYCODONE HCL ER 10 MG ORAL T12A 1/2 tab by mouth every 4 hours prn OXYCODONE HCL ER 10 MG ORAL T12A OXYCODONE HCL Inactive FLAGYL 500 MG TAB 1 tablet by mouth bid FLAGYL 500 MG TAB 573896 METRONIDAZOLE Inactive MONISTAT 7 COMBO PACK WOODROW 100 & 2 MG-% (9GM) VAG KIT 1 applicatorful per vagina q pm x 7 MONISTAT 7 COMBO PACK WOODROW 100 & 2 MG-% (9GM) VAG KIT MICONAZOLE NITRATE Inactive BACTRIM DS 800-160 MG TABS 1 twice a day BACTRIM DS 800-160 MG TABS 409317 SULFAMETHOXAZOLE-TRIMETHOPRIM Inactive TRAMADOL HCL 50 MG TABS 1/2-1 tab TID PRN TRAMADOL HCL 50 MG TABS 443257 TRAMADOL HCL Inactive ABILIFY MAINTENA 400 MG IM SUSR 400mg injection every 26 days ABILIFY MAINTENA 400 MG IM SUSR ARIPIPRAZOLE Inactive KLONOPIN 1 MG ORAL TABS 1 tab po TID KLONOPIN 1 MG ORAL TABS 607923 CLONAZEPAM Inactive ADVAIR DISKUS 250-50 MCG/DOSE INH AEPB 1 puff twice a day for asthma ADVAIR DISKUS 250-50 MCG/DOSE INH AEPB FLUTICASONE- SALMETEROL Inactive BENADRYL 25 MG CAP 4 po at bedtime for insomnia BENADRYL 25 MG CAP DIPHENHYDRAMINE HCL Inactive CEFDINIR 300 MG CAPS by mouth twice a day CEFDINIR 300 MG CAPS 097984 CEFDINIR Inactive PREDNISONE 20 MG TAB 2 tabs daily for 3 days, 1 tab daily for 3 days, 1/2 tab daily for 2 days PREDNISONE 20 MG TAB 053339 PREDNISONE Inactive BACTRIM DS 800-160 MG TABS 1 po BID x 7 days BACTRIM DS 800-160 MG TABS 19820521 SULFAMETHOXAZOLE-TRIMETHOPRIM Inactive DIFLUCAN 150 MG TABS 1 pill every other day x 2 doses DIFLUCAN 150 MG TABS 822351 FLUCONAZOLE Inactive BACTRIM DS 800-160 MG TABS 1 pill by mouth twice daily BACTRIM DS 800-160 MG TABS 834690 SULFAMETHOXAZOLE-TRIMETHOPRIM Inactive KEFLEX 500 MG CAP 1 po TID x 10 days KEFLEX 500 MG CAP 555906 CEPHALEXIN Inactive Advance Directives Directive Description Start [...] E&M - [id number] 290 [lb_av] Weight Measured Diagnostic Results Date Name [...] 369 10^3/MM^3 10*3/mm3 142-424 Lab Report: Chlamydia/GC APTIMA/[id number] - Lab chlamydia DNA probe NOT DETECTED NOT DETECTED Lab Report: Chlamydia/GC APTIMA/08087 - Microbiology Neisseria gonorrhoeae DNA probe NOT DETECTED NOT DETECTED Lab Report: Comp. Metabolic Panel - Chemistry sodium, serum 139 mmol/L 572-138 9560/01/11 carbon dioxide, venous blood 26.6 mmol/L 21.0-32.0 potassium, serum 4.1 mmol/L 3.5-5.2 chloride, serum 100 mmol/L 98-107 blood glucose 86 mg/dL 65-110 urea nitrogen, blood 16 mg/dL 7-18 creatinine, serum 1.00 mg/dL 0.55-1.30 alanine aminotransferase (SGPT), serum 48 U/L -78 aspartate aminotransferase (SGOT), serum 17 U/L 15-37 calcium, serum 9.1 mg/dL 8.5-10.1 bilirubin, serum, total 0.40 mg/dL 0.00-1.00 sodium, serum 142 mmol/L 301-132 2196/06/08 carbon dioxide, venous blood 27.6 mmol/L 21.0-32.0 potassium, serum 4.0 mmol/L 3.5-5.2 chloride, serum 105 mmol/L 98-107 blood glucose 95 mg/dL 65-110 urea nitrogen, blood 8 mg/dL 7-18 creatinine, serum 0.75 mg/dL 0.55-1.30 alanine aminotransferase (SGPT), serum 49 U/L -78 aspartate aminotransferase (SGOT), serum 28 U/L 15-37 calcium, serum 9.4 mg/dL 8.5-10.1 bilirubin, serum, total 0.30 mg/dL 0.00-1.00 sodium, serum 140 mmol/L 730-896 2979/08/08 carbon dioxide, venous blood 33.7 mmol/L 21.0-32.0 [...] mg/dL Encounters Code Encounter Date Provider Facility CPT-68448 Level 3 Est. Patient 10:40:11 BUSINESS TEAM LEADER Ahmet Carbajal MD [facility] CPT-63711 Level 3 Est. Patient 15:07:06 BUSINESS TEAM LEADER Neeraj Collins MD [facility] CPT-80052 Level 4 Est. Patient 14:45:00 BUSINESS TEAM LEADER Ahmet Carbajal MD [facility] CPT-63322 Level 3 Est. Patient 13:59:59 CDT Luigi Martínez [facility] CPT-14893 Level 3 Est. Patient 18:18:53 CDT Neeraj Collins MD [facility] CPT-35261 Level 3 Est. Patient 15:50:44 CDT Vishal Hui MD [facility] CPT-95483 Level 3 Est. Patient 11:36:17 CDT Ahmet Carbajal MD [facility] CPT-15103 Level 3 Est. Patient 13:29:16 CDT Vishal Hui MD [facility] CPT-63665 Level 3 Est. Patient 14:27:52 CDT Neeraj Collins MD [facility] CPT-32767 Level 3 Est. Patient 08:56:03 CDT Luigi Martínez [facility] CPT-35577 Level 4 Est. Patient 12:11:48 CDT Fabiola Johnson [facility] CPT-24727 Level 3 New Patient 16:53:37 CDT Albert Caldera MD [facility] CPT-20251 Level 3 Est. Patient 11:25:49 CDT Renzo Thornton DO [facility] CPT-88615 Level 3 Est. Patient 15:22:01 CDT Ahmet Carbajal MD [facility] CPT-68603 Level 4 Est. Patient 09:00:51 BUSINESS TEAM LEADER Vishal Hui MD [facility] CPT-20399 Level 3 Est. Patient 11:37:33 BUSINESS TEAM LEADER Vishal Hui MD [facility] CPT-17966 Level 3 Est. Patient 08:41:09 BUSINESS TEAM LEADER Vishal Hui MD [facility] CPT-41163 Level 4 Est. Patient 10:19:35 BUSINESS TEAM LEADER Vishal Hui MD [facility] CPT-60102 Level 3 Est. Patient 13:35:45 CDT Vishal Hui MD [facility] CPT-29922 Level 4 Est. Patient 10:08:37 CDT Vishal Hui MD [facility] CPT-16537 Level 3 Est. Patient 11:22:10 CDT Vishal Hui MD [facility] CPT-98391 Level 3 Est. Patient 11:03:32 CDT Sahara Rodriguez MD [facility] CPT-65363 Level 3 Est. Patient 09:41:35 CDT Vishal Hui MD [facility] CPT-29371 Level 3 Est. Patient 12:00:41 CDT Neeraj Collins MD [facility] CPT-42535 Level 3 Est. Patient 09:16:24 CDT Vishal Hui MD [facility] CPT-21512 Level 4 Est. Patient 13:59:09 CDT Neeraj Collins MD [facility] CPT-08265 Level 3 Est. Patient 15:19:43 CDT Renzo Thornton DO [facility] CPT-41146 Level 3 Est. Patient 18:10:26 CDT Sahara Rodriguez MD [facility]-[id number] Level 3 Est. Patient 14:49:50 CDT Vishal Hui MD [facility] CPT-46604 Level 4 Est. Patient 18:41:46 CDT Neeraj Collins MD [facility] CPT-24392 Level 4 Est. Patient 09:18:38 BUSINESS TEAM LEADER Vishal Hui MD [facility] CPT-13929 Level 3 Est. Patient 14:43:55 BUSINESS TEAM LEADER Vishal Hui MD [facility] CPT-00685 Level 3 Est. Patient 15:26:33 BUSINESS TEAM LEADER Sahara Rodriguez MD PhD [facility] CPT-62203 Level 3 Est. Patient 10:32:14 BUSINESS TEAM LEADER Vishal Hui MD [facility] CPT-92397 Level 3 Est. Patient 15:12:52 BUSINESS TEAM LEADER Vishal Hui MD [facility] CPT-47869 Level 4 Est. Patient 09:19:27 CDT Vishal Hui MD [facility] CPT-59563 Level 3 Est. Patient 15:53:00 CDT Renzo Thornton [facility] CPT-48123 Level 3 Est. Patient 15:50:30 CDT Renzo Thornton [facility] CPT-31823 Level 3 Est. Patient 16:55:24 CDT Vishal Hui MD [facility] Procedures Code Procedure Name Date Entry Date Standard Description CPT-G0439 [facility] [place] [facility] Annual Wellness Exam 09:30:58 BUSINESS TEAM LEADER CPT-83980 TSH - LAB USE ONLY 08:50:26 BUSINESS TEAM LEADER CPT-48957 CBC - LAB USE ONLY 08:50:26 BUSINESS TEAM LEADER CPT-15757 Venipuncture Draw Fee 08:50:26 BUSINESS TEAM LEADER CPT-84419 Abx/Therapy Injection 17:34:30 BUSINESS TEAM LEADER CPT-95136 Nexplanon Removal with Reinsertion 14:09:32 CDT CPT-J7307 Nexplanon (Implant) 14:09:32 CDT CPT-OV Office Visit 14:09:32 CDT CPT-90184 UA w micro - LAB USE ONLY 16:21:13 CDT CPT-11889 Wet Mount - LAB USE ONLY 16:21:13 CDT CPT-46887 First Vx - Ix admin for Medicare patients 14:37:47 CDT CPT-12796 Fluzone Preservative Free Intramuscular Suspension 14:37 :47 CDT CPT-07124 Abx/Therapy Injection 13:54:22 CDT CPT-29999 Abx/Therapy Injection 08:47:09 CDT CPT-63047 Abx/Therapy Injection 13:29:56 CDT CPT-97621 Abx/Therapy Injection 08:36:16 CDT CPT-15879 Wet Mount - LAB USE ONLY 17:44:58 CDT CPT-64934 UA w micro - LAB USE ONLY 17:44:58 CDT CPT-51401 CMP - LAB USE ONLY 17:44:58 CDT CPT-72558 Venipuncture Draw Fee 17:44:58 CDT CPT-26931 Cervical Min 4V - XRAY USE ONLY 09:01:40 CDT CPT-50613 Chest 2V Frontal and Lat - XRAY USE ONLY 11:06:31 CDT CPT-47319 EKG Trac and Interp - XRAY USE ONLY 11:31:43 CDT 08/26 CPT-J3420 Vitamin B12 1000mcg (Cyanocobalamin) 08:10:26 BUSINESS TEAM LEADER 04/12 CPT-75044 Abx/Therapy Injection 08:10:26 BUSINESS TEAM LEADER CPT-G0438 Initial Annual Wellness Exam 19:01:01 BUSINESS TEAM LEADER CPT-J3420 Vitamin B12 1000mcg (Cyanocobalamin) 16:57:46 CDT 08/14 CPT-10395 Recombivax HB Injection Suspension 5 MCG/0.5ML 08:37:50 BUSINESS TEAM LEADER CPT-39776 Immunization Single Admin 08:37:50 BUSINESS TEAM LEADER CPT-J3420 Vitamin B12 1000mcg (Cyanocobalamin) 08:32:16 BUSINESS TEAM LEADER 03/11 CPT-63212 Abx/Therapy Injection 08:32:16 BUSINESS TEAM LEADER CPT-28739 Chest 2V Frontal and Lat 11:46:38 BUSINESS TEAM LEADER CPT-77825 Venipuncture Draw Fee 09:12:45 BUSINESS TEAM LEADER CPT-J3420 Vitamin B12 1000mcg (Cyanocobalamin) 08:50:15 BUSINESS TEAM LEADER 02/08 CPT-14768 Abx/Therapy Injection 08:50:15 BUSINESS TEAM LEADER CPT-Cryo Cryotherapy 10:19:35 BUSINESS TEAM LEADER CPT-000 Give Appropriate Flu Vaccine 09:22:16 CDT CPT-J3420 Vitamin B12 1000mcg (Cyanocobalamin) 19:08:57 CDT 01/11 CPT-06023 Abx/Therapy Injection 19:08:57 CDT CPT-J3420 Vitamin B12 1000mcg (Cyanocobalamin) 08:19:08 CDT 12/11 CPT-04946 Abx/Therapy Injection 08:19:08 CDT CPT-J3420 Vitamin B12 1000mcg (Cyanocobalamin) 14:48:00 CDT 11/09 CPT-81383 Abx/Therapy Injection 14:47:59 CDT CPT-J3420 Vitamin B12 1000mcg (Cyanocobalamin) 08:34:04 CDT 10/09 CPT-64670 Abx/Therapy Injection 08:34:04 CDT CPT-J3420 Vitamin B12 1000mcg (Cyanocobalamin) 09:18:52 CDT 09/11 CPT-81181 Abx/Therapy Injection 09:18:52 CDT CPT-J3420 Vitamin B12 1000mcg (Cyanocobalamin) 08:35:44 CDT 09/04 CPT-39723 Abx/Therapy Injection 08:35:44 CDT CPT-30429 Immunization Single Admin 11:07:16 CDT CPT-44593 Hepatitis B adult IM 11:07:16 CDT CPT-J3420 Vitamin B12 1000mcg (Cyanocobalamin) 11:00:49 CDT 08/28 CPT-J1040 Depo Medrol 80 mg (Methyl Prednisolone Acetate) 11:00: 49 CDT CPT-07654 Abx/Therapy Injection 11:00:49 CDT CPT-J1040 Depo Medrol 80 mg (Methyl Prednisolone Acetate) 09:16: 23 CDT CPT-J3420 Vitamin B12 1000mcg (Cyanocobalamin) 08:27:05 CDT 08/20 CPT-31609 Abx/Therapy Injection 08:27:05 CDT CPT-87557 Recombivax HB Injection Suspension 5 MCG/0.5ML 10:00:41 CDT CPT-08396 Administration single or combination vaccine inc oral 10 :00:41 CDT CPT-33909 Sono transvag pelvis non OB uterus ovaries cervix 16:36: 57 CDT CPT-31218 LS spine comp w obliq 09:50:55 BUSINESS TEAM LEADER CPT-07509 Abd compl w upright 09:50:55 BUSINESS TEAM LEADER CPT-J1100 Decadron 4mg (Dexamethasone) 15:51:24 BUSINESS TEAM LEADER CPT-J1030 Depo Medrol 40 mg (Methyl Prednisolone Acetate) 15:51: 24 BUSINESS TEAM LEADER CPT-58904 Abx/Therapy Injection 15:51:24 BUSINESS TEAM LEADER CPT-J1100 Decadron 4mg (Dexamethasone) 15:26:33 BUSINESS TEAM LEADER CPT-J1030 Depo Medrol 40 mg (Methyl Prednisolone Acetate) 15:26: 33 BUSINESS TEAM LEADER CPT-57512 Sono retroperitoneal complete kidneys and bladder 17:15: 30 CDT CPT-64832 Abd compl w upright 16:09:25 CDT CPT-J1100 Decadron 8mg (Dexamethasone) 17:07:57 CDT CPT-47734 Abx/Therapy Injection 17:07:57 CDT CPT-J1100 Decadron 8mg (Dexamethasone) 16:55:24 CDT CPT-52023 Chest 2V Frontal and Lat 16:32:44 CDT
--- OUTSIDE RECORDS SUMMARY | 2016-11-04 13:16 | XMS REPORT ---
Author Author [facility] Medical Staff Organization [facility] Address [address] [place], [place] [id number] Phone [phone] Care Team Providers Care Bulk Fluids Handler Name Role Phone DENICE OCHOA MD, PP [phone] DENICE OCHOA MD, PP [phone] Summary purpose TRANSITION OF CARE AUTO GENERATION [...] Code Type Description Date Performed Performing Physician 41019 CPT-4 EMERGENCY DEPT VISIT 07-28-2015 MINO CHEW 26431 CPT-4 EMERGENCY DEPT VISIT 07-28-2015 MINO CHEW Functional status Functional Status Finding Observation Time Abdomen Appearance obese :40 Abdomen soft [id number]:40 Vick no 10-15-412388:40 Urination normal 24-61-413065:40 Quality sym/unlabored :40 Cough non-productive :40 Secretions no :40 Breath Sounds RUL wheezes :40 Breath Sounds RML wheezes :40 Breath Sounds RLL wheezes :40 Breath Sounds BENJA wheezes :40 Breath Sounds LLL wheezes :40 Airway natural :40 Chest Tube no :40 Oxygen no :00 Temp >100.4 no :40 Temp <96.8 no :40 Chills with rigors no :40 HR > 90bpm no :40 Respirations > 20 no : Systolic <90 no :40 headache stiff neck [...] cafeteria until 11: 00 appt with Jagdish. KAYLEE Inst/Educ Give yes Med/Side Effects Rev yes PNE Vac No Flu Vac 2014 Tetanus Vac 2014
--- OUTSIDE RECORDS SUMMARY | 2016-11-04 13:19 | XMS REPORT | Clinical Summary ---
Author Author Admin, Dereck Organization [facility] [employer] Address Unknown Phone Unavailable Allergies, Adverse Reactions, [...] sites Morbid obesity 278.01 Active Juliet Kimbrough TRAINING FACILITATOR Morbid obesity 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 Active Juliet Kimbrough TRAINING FACILITATOR Dependence on other enabling machines and devices [...] breath Nocturnal hypoxia 799.02 Active Fabiola Johnson TRAINING FACILITATOR Hypoxemia Neck pain 723.1 Resolved Vishal Hui [...] R D ICD-530.81 Inactive Vishal Hui MD Abdominal pain ICD-789.00 [...] of sutures ICD-V58.32 Inactive Vishal Hui MD Smoker/tobacco use disorder-smoking cessation discussed ICD-305.1 Inactive Vishal Hui MD Personality change ICD-301.9 [...] Asthma, acute ICD-493.92 Inactive Vishal Hui MD Hot flashes ICD-627.2 Inactive Vishal Hui MD Medication List Medication Instructions Start Date Stop Date Generic Name NDC Status Provider Patient Instruction TRAMADOL HCL 50 MG TABS 1/2-1 tab TID PRN TRAMADOL HCL [id number] Active Lynda Juarezephraim LOCKSTITCH MACHINE OPERATOR Active PROAIR HFA 108 (90 BASE) MCG/ACT AERS 2 puffs four times a day as needed 2015 ALBUTEROL SULFATE 13617717026 Active Ahmet Carbajal MD Active EQ NICOTINE 21 MG/24HR TRANS PT24 Apply daily to stop smoking NICOTINE 88779478440 Active Ahmet Carbajal MD Active BACTRIM DS 800-160 MG TABS 1 twice a day SULFAMETHOXAZOLE- TRIMETHOPRIM 31373312522 Active Ahmet Carbajal MD Active ADVAIR DISKUS 250-50 MCG/DOSE INH AEPB 1 puff twice a day for asthma FLUTICASONE-SALMETEROL 23841328319 Active Ahmet Carbajal MD Active MONISTAT 7 COMBO PACK WOODROW 100 & 2 MG-% (9GM) VAG KIT 1 applicatorful per vagina q pm x 7 MICONAZOLE NITRATE 71797004452 No Longer Active Ahmet Carbajal MD Active FLAGYL 500 MG TAB 1 tablet by mouth bid METRONIDAZOLE 08349844825 No Longer Active Ahmet Carbajal MD Active OXYCODONE HCL ER 10 MG ORAL T12A 1/2 tab by mouth every 4 hours prn OXYCODONE HCL 07346594636 No Longer Active Ahmet Carbajal MD Active METHYLPREDNISOLONE 4 MG ORAL TABS po daily METHYLPREDNISOLONE 62279782926 No Longer Active Ahmet Carbajal MD Active LEVOFLOXACIN 500 MG ORAL TABS po daily LEVOFLOXACIN 70233814993 No Longer Active Ahmet Carbajal MD Active VIIBRYD 10 MG ORAL TABS Take 1 tablet once a day VILAZODONE HCL 12480426072 No Longer Active Ahmet Carbajal MD Active TOPAMAX 50 MG ORAL TABS 1 tab twice daily TOPIRAMATE 35623593003 No Longer Active Ahmet Carbajal MD Active DICLOFENAC SODIUM 50 MG TBEC 1 tablet by mouth four times daily PRN Pain 2015 DICLOFENAC SODIUM 33083658150 No Longer Active Ahmet Carbajal MD Active ADZENYS XR-ODT 6.3 MG ORAL TBED 1 tab po daily for ADHD AMPHETAMINE 47854164430 No Longer Active Ahmet Carbajal MD Active CHANTIX 1 MG TABS 1 twice a day to help quit smoking VARENICLINE TARTRATE 27057611173 No Longer Active Dipika Burgos MD Active CHANTIX STARTING MONTH EARNEST 0.5 MG X 11 & 1 MG X 42 TABS take as directed 2015 VARENICLINE TARTRATE 95569590016 No Longer Active Dipika Burgos MD Active TESSALON PERLES 100 MG CAP 1 to 2 tablets by mouth 3 times daily as needed for cough BENZONATATE 18723082928 No Longer Active Luigi Martínez TRAINING FACILITATOR Active ABILIOMAR MAINTENA 400 MG IM SUSR 400mg injection every 26 days ARIPIPRAZOLE 41105973586 Active Silvia Casey LOCKSTITCH MACHINE OPERATOR Active IMITREX 50 MG ORAL TABS 0.5 po x 1 PRN Headache. May repeat dose x 1 in 2 hours if needed SUMATRIPTAN SUCCINATE 76140199340 Active Suzan Boo TRAINING FACILITATOR Active HYDROCODONE-ACETAMINOPHEN 5-325 MG TABS 1 to 2 four times a day as needed for pain use until can be seen by specialist HYDROCODONE- ACETAMINOPHEN 97321278347 No Longer Active Vishal Hui MD Active PROAIR HFA 108 (90 BASE) MCG/ACT AERS 2 puffs four times a day as needed 2015 ALBUTEROL SULFATE 81581885218 No Longer Active Vishal Hui MD Active PREDNISONE 20 MG TABS 2 daily for 5 days then 1 daily for 5 days PREDNISONE 62468034417 No Longer Active Vishal Hui MD Active ZITHROMAX Z-EARNEST 250 MG TABS 2 today and then 1 daily for 4 days AZITHROMYCIN 59096383763 No Longer Active Vishal Hiu MD Active DICLOFENAC POTASSIUM TABS Take 1 tablet twice a day (pt. is not sure of the dose.) DICLOFENAC POTASSIUM TABS 88784900731 No Longer Active Vishal Hui MD Active VERAPAMIL HCL ER 120 MG ORAL CR-TABS Take 1 tablet by mouth twice a day. VERAPAMIL HCL 38509279534 Active Vishal Hui MD Active FLAGYL 500 MG TAB 1 tablet by mouth bid METRONIDAZOLE 70622038498 No Longer Active Vishal Hui MD Active FLUTICASONE PROPIONATE 50 MCG/ACT SUSP 2 sprays each nostril daily before bed. FLUTICASONE PROPIONATE 75767299255 Active Fabiola Johnson APRN Active BENADRYL 25 MG CAP 4 po at bedtime for insomnia DIPHENHYDRAMINE HCL 32361392541 Active Fabiola Johnson APRN Active KLONOPIN 1 MG ORAL TABS 1 tab po TID CLONAZEPAM 44990445457 Active Fabiola Johnson APRN Active VALIUM 5 MG TAB Take 1-2 tablets daily DIAZEPAM 25167069717 No Longer Active Fabiola Johnson APRN Active METOPROLOL TARTRATE 25 MG ORAL TABS 1/2 tablet twice daily for heart rate and blood pressure METOPROLOL TARTRATE 26019574470 No Longer Active Fabiola Johnson APRN Active MIRALAX ORAL POWD 17GMS DAILY IN WATER POLYETHYLENE GLYCOL 3350 03102259399 Active Vishal Hui MD Active MIRALAX PACK 1 po qd PRN Constipation POLYETHYLENE GLYCOL 3350 50899553411 No Longer Active Ahmet Carbajal MD Active MINIPRESS 2 MG CAPS 4 cap po at night PRAZOSIN HCL 92701163392 No Longer Active Ahmet Carbajal MD Active PIROXICAM 20 MG CAPS 1 cap po qd PRN Pain PIROXICAM 56569069611 No Longer Active Ahmet Carbajal MD Active TRAMADOL HCL 50 MG TABS 1-2 po TID PRN Pain TRAMADOL HCL 08284075261 No Longer Active Ahmet Carbajal MD Active METOPROLOL TARTRATE 50 MG TAB 1 po bid METOPROLOL TARTRATE 02173530462 No Longer Active Ahmet Carbajal MD Active ABILIFY 15 MG ORAL TABS 1 tab daily ARIPIPRAZOLE 18899931991 No Longer Active Ahmet Carbajal MD Active PROZAC 20 MG ORAL CAPS 1 tab daily FLUOXETINE HCL 49143383792 No Longer Active Ahmet Carbajal MD Active AMBIEN 5 MG ORAL TABS 1 tab at bedtime ZOLPIDEM TARTRATE 07487916390 No Longer Active Ahmet Carbajal MD Active PREDNISONE 20 MG TAB 2 tabs daily for 4 days, 1 tab daily for 4 days, 1/2 tab daily for 4 days PREDNISONE 01135921022 No Longer Active Ahmet Carbajal MD Active KEFLEX 500 MG CAP 1 po TID x 10 days CEPHALEXIN 15449895121 No Longer Active Vishal Hui MD Active SAPHRIS 5 MG SUBL 1 po bid ASENAPINE MALEATE 89697708594 No Longer Active Luigi Martínez APRN Active LATUDA 80 MG TABS Take one by mouth daily LURASIDONE HCL 77597848304 No Longer Active Jillina Fralebron TRAINING FACILITATOR Active AMLODIPINE BESYLATE 5 MG TABS 1 tablet by mouth daily AMLODIPINE BESYLATE 89385430317 No Longer Active Jillina Fralebron TRAINING FACILITATOR Active AMITRIPTYLINE HCL 100 MG TAB one at hs AMITRIPTYLINE HCL 49985028191 No Longer Active Vishal Hui MD Active TRAZODONE HCL 100 MG TAB take 1 at bedtime TRAZODONE HCL 21337985500 No Longer Active Vishal Hui MD Active VYVANSE 40 MG CAPS 1 daily, LISDEXAMFETAMINE DIMESYLATE 50158466287 No Longer Active Vishal Hui MD Active IBUPROFEN 600 MG TAB 1 po TID PRN IBUPROFEN 97450034924 No Longer Active Vishal Hui MD Active PROZAC 20 MG CAP Take one by mouth daily FLUOXETINE HCL 68442414670 No Longer Active Vishal Hui MD Active ZOFRAN 4 MG TABS 1 po q6hr PRN Nausea ONDANSETRON HCL Active Vishal Hui MD Active BACTRIM DS 800-160 MG TABS 1 pill by mouth twice daily SULFAMETHOXAZOLE-TRIMETHOPRIM 29080173212 No Longer Active Sahara Rodriguez MD PhD Active DIFLUCAN 150 MG TAB 1 tablet by mouth daily FLUCONAZOLE 58966882062 No Longer Active Vishal Hui MD Active TIZANIDINE HCL 4 MG TABS 1 po q6hr PRN Muscle Spasm/Back Pain TIZANIDINE HCL 57743382417 Active Vishal Hui MD Active CLINDAMYCIN HCL 150 MG CAPS 1 four times a day CLINDAMYCIN HCL 49376046574 No Longer Active Neeraj Collins MD Active KEFLEX 500 MG ORAL CAPS 1 cap QID by mouth CEPHALEXIN 43215946086 No Longer Active Neeraj Collins MD Active DIFLUCAN 150 MG TABS 1 pill every other day x 2 doses FLUCONAZOLE 14980096463 No Longer Active Sahara Rodriguez MD PhD Active MELATONIN 3 MG CAPS 2 po q hs MELATONIN 50196918418 No Longer Active Sahara Rodriguez MD PhD Active MULTIVITAMINS CAPS Take one by mouth daily MULTIPLE VITAMIN 95576980500 No Longer Active Sahara Rodriguez MD PhD Active BACTRIM DS 800-160 MG TAB 1 tab by mouth twice daily TRIMETHOPRIM-SULFAMETHOXAZOLE 25091761413 No Longer Active Sahara Rodriguez MD PhD Active [facility] PROBIOTIC ORAL CHEW 2 daily po PROBIOTIC PRODUCT 80078069443 No Longer Active Sahara Rodriguez MD PhD Active BACTRIM DS 800-160 MG TABS 1 po BID x 7 days SULFAMETHOXAZOLE-TRIMETHOPRIM 45311648259 No Longer Active Vishal Hui MD Active CHANTIX STARTING MONTH EARNEST 0.5 MG X 11 & 1 MG X 42 TABS 0.5mg daily for 3 days , then 0.5mg BID for 4 days, then 1mg BID VARENICLINE TARTRATE 20866672730 No Longer Active TAMARA Gray Active VERAPAMIL HCL CR 120 MG TAB CR 1 po bid VERAPAMIL HCL 59012016930 No Longer Active Vishal Hui MD Active METOPROLOL SUCCINATE 50 MG TB24 1 tablet by mouth daily METOPROLOL SUCCINATE 16859355737 No Longer Active Vishla Hui MD Active SAPHRIS 10 MG SUBL 1 tab po bid ASENAPINE MALEATE 41774600182 No Longer Active Vishal Hui MD Active LISINOPRIL 20 MG TABS 1 tab po qd LISINOPRIL 23518593824 No Longer Active Vishal Hui MD Active LATUDA 20 MG TABS Take one by mouth daily LURASIDONE HCL 86581353999 No Longer Active Vishal Hui MD Active TRAZODONE HCL 50 MG TABS 1/2 tab po qd prn for anxiety TRAZODONE HCL 46354895210 No Longer Active Vishal Hui MD Active OMEPRAZOLE 20 MG TBEC 1 po q a.m. 30min prior to first food intake OMEPRAZOLE 13232178234 Active Vishal Hui MD Active RANITIDINE HCL 150 MG CAPS 1 twice a day RANITIDINE HCL 37128149349 Active Luigi Martínez APRN Active LINZESS 290 MCG CAPS Take one by mouth daily LINACLOTIDE 52196808525 No Longer Active Vishal Hui MD Active SAPHRIS 5 MG SUBL 1 tab po qd ASENAPINE MALEATE 79130229265 No Longer Active Vishal Hui MD Active ZALEPLON 10 MG CAPS 1 cap po every other night ZALEPLON 62345669206 No Longer Active Vishal Hui MD Active LYRICA 50 MG CAPS 1 tab po TID PREGABALIN 75448406817 No Longer Active Vishal Hui MD Active LORATADINE 10 MG TABS 1 tab po qd LORATADINE 79434851248 No Longer Active Vishal Hui MD Active VERAPAMIL HCL ER 180 MG CR-TABS 1 tab po bid VERAPAMIL HCL 77452485117 No Longer Active Vishal Hui MD Active MIRALAX POWD 1 capfull once daily POLYETHYLENE GLYCOL 3350 26070771135 No Longer Active Vishal Hui MD Active PREDNISONE 20 MG TABS 1 tab po qd PREDNISONE 03375999397 No Longer Active Renzo Thornton DO Active LEVOFLOXACIN 500 MG TABS 1 tab po qd LEVOFLOXACIN 49939771230 No Longer Active Renzo Thornton DO Active BUSPIRONE HCL 15 MG TABS 1 tab po TID BUSPIRONE HCL 39215003568 No Longer Active Renzo Thornton DO Active BENZTROPINE MESYLATE 1 MG TABS 1 tab po qd BENZTROPINE MESYLATE 65657373893 No Longer Active Renzo Thornton DO Active ATENOLOL 25 MG TABS 1 tab po qd ATENOLOL 05513613071 No Longer Active Renzo Thornton DO Active ESCITALOPRAM OXALATE 20 MG TABS 1 tab po qd ESCITALOPRAM OXALATE 50438829909 No Longer Active Renzo Thornton DO Active ADVAIR DISKUS 250-50 MCG/DOSE AEPB 1 puff BID FLUTICASONE-SALMETEROL 10512479368 No Longer Active Renzo Thornton DO Active PREDNISONE 20 MG TAB 2 tabs daily for 3 days, 1 tab daily for 3 days, 1/2 tab daily for 2 days PREDNISONE 48918771531 No Longer Active Vishal Hui MD Active CEFDINIR 300 MG CAPS by mouth twice a day CEFDINIR 88136660442 No Longer Active Vishal Hui MD Active LANSOPRAZOLE 30 MG CPDR 1 cap po qd LANSOPRAZOLE 23755933723 No Longer Active Vishal Hui MD Active BACLOFEN 20 MG TABS 1 tab po tid BACLOFEN 96045232011 No Longer Active Vishal Hui MD Active ADVAIR DISKUS 250-50 MCG/DOSE AEPB 1 puff BID ADVAIR DISKUS 250-50 MCG/DOSE AEPB FLUTICASONE-SALMETEROL Inactive ESCITALOPRAM OXALATE 20 MG TABS 1 tab po qd ESCITALOPRAM OXALATE 20 MG TABS 601682 ESCITALOPRAM OXALATE Inactive ATENOLOL 25 MG TABS 1 tab po qd ATENOLOL 25 MG TABS 385331 ATENOLOL Inactive BENZTROPINE MESYLATE 1 MG TABS 1 tab po qd BENZTROPINE MESYLATE 1 MG TABS 561796 BENZTROPINE MESYLATE Inactive BUSPIRONE HCL 15 MG TABS 1 tab po TID BUSPIRONE HCL 15 MG TABS 842571 BUSPIRONE HCL Inactive LEVOFLOXACIN 500 MG TABS 1 tab po qd LEVOFLOXACIN 500 MG TABS 273437 LEVOFLOXACIN Inactive PREDNISONE 20 MG TABS 1 tab po qd PREDNISONE 20 MG TABS 365625 PREDNISONE Inactive MIRALAX POWD 1 capfull once daily MIRALAX POWD 208803 POLYETHYLENE GLYCOL 3350 Inactive VERAPAMIL HCL ER 180 MG CR-TABS 1 tab po bid VERAPAMIL HCL ER 180 MG CR-TABS VERAPAMIL HCL Inactive LORATADINE 10 MG TABS 1 tab po qd LORATADINE 10 MG TABS 901289 LORATADINE Inactive LYRICA 50 MG CAPS 1 tab po TID LYRICA 50 MG CAPS PREGABALIN Inactive ZALEPLON 10 MG CAPS 1 cap po every other night ZALEPLON 10 MG CAPS 371088 ZALEPLON Inactive SAPHRIS 5 MG SUBL 1 tab po qd SAPHRIS 5 MG SUBL ASENAPINE MALEATE Inactive TRAZODONE HCL 50 MG TABS 1/2 tab po qd prn for anxiety TRAZODONE HCL 50 MG TABS 814219 TRAZODONE HCL Inactive LATUDA 20 MG TABS Take one by mouth daily LATUDA 20 MG TABS LURASIDONE HCL Inactive LISINOPRIL 20 MG TABS 1 tab po qd LISINOPRIL 20 MG TABS 862381 LISINOPRIL Inactive SAPHRIS 10 MG SUBL 1 [...] twice daily BACTRIM DS 800-160 MG TAB 483813 TRIMETHOPRIM-SULFAMETHOXAZOLE Inactive MULTIVITAMINS CAPS Take one by mouth daily MULTIVITAMINS CAPS MULTIPLE VITAMIN Inactive MELATONIN 3 MG CAPS 2 po q hs MELATONIN 3 MG CAPS 124967 MELATONIN Inactive KEFLEX 500 MG ORAL CAPS 1 cap QID by mouth KEFLEX 500 MG ORAL CAPS 677319 CEPHALEXIN Inactive CLINDAMYCIN HCL 150 MG CAPS 1 four times a day CLINDAMYCIN HCL 150 MG CAPS 19740326 CLINDAMYCIN HCL Inactive DIFLUCAN 150 MG TAB 1 tablet by mouth daily DIFLUCAN 150 MG TAB 449980 FLUCONAZOLE Inactive PROZAC 20 MG CAP Take one by mouth daily PROZAC 20 MG CAP 638267 FLUOXETINE HCL Inactive IBUPROFEN 600 MG TAB 1 po TID PRN IBUPROFEN 600 MG TAB 713808 IBUPROFEN Inactive VYVANSE 40 MG CAPS 1 daily, VYVANSE 40 MG CAPS LISDEXAMFETAMINE DIMESYLATE Inactive TRAZODONE HCL 100 MG TAB take 1 at bedtime TRAZODONE HCL 100 MG TAB 956078 TRAZODONE HCL Inactive AMITRIPTYLINE HCL 100 MG TAB one at hs AMITRIPTYLINE HCL 100 MG TAB 270544 AMITRIPTYLINE HCL Inactive AMLODIPINE BESYLATE 5 MG TABS 1 tablet by mouth daily AMLODIPINE BESYLATE 5 MG TABS 767187 AMLODIPINE BESYLATE Inactive LATUDA 80 MG TABS Take one by mouth daily LATUDA 80 MG TABS LURASIDONE HCL Inactive SAPHRIS 5 MG SUBL 1 po bid SAPHRIS 5 MG SUBL ASENAPINE MALEATE Inactive PREDNISONE 20 MG TAB 2 tabs daily for 4 days, 1 tab daily for 4 days, 1/2 tab daily for 4 days PREDNISONE 20 MG TAB 614030 PREDNISONE Inactive AMBIEN 5 MG ORAL TABS 1 tab at bedtime AMBIEN 5 MG ORAL TABS 249462 ZOLPIDEM TARTRATE Inactive PROZAC 20 MG ORAL CAPS 1 tab daily PROZAC 20 MG ORAL CAPS 608210 FLUOXETINE HCL Inactive ABILIFY 15 MG ORAL TABS 1 tab daily ABILIFY 15 MG ORAL TABS 997986 ARIPIPRAZOLE Inactive METOPROLOL TARTRATE 50 MG TAB 1 po bid METOPROLOL TARTRATE 50 MG TAB 495549 METOPROLOL TARTRATE Inactive TRAMADOL HCL 50 MG TABS 1-2 po TID PRN Pain TRAMADOL HCL 50 MG TABS 534909 TRAMADOL HCL Inactive PIROXICAM 20 MG CAPS 1 cap po qd PRN Pain PIROXICAM 20 MG CAPS 058851 PIROXICAM Inactive MINIPRESS 2 MG CAPS 4 cap po at night MINIPRESS 2 MG CAPS 831612 PRAZOSIN HCL Inactive MIRALAX PACK 1 po qd PRN Constipation MIRALAX PACK 844524 POLYETHYLENE GLYCOL 3350 Inactive METOPROLOL TARTRATE 25 MG ORAL TABS 1/2 tablet twice daily for heart rate and blood pressure METOPROLOL TARTRATE 25 MG ORAL TABS 307918 METOPROLOL TARTRATE Inactive VALIUM 5 MG TAB Take 1-2 tablets daily VALIUM 5 MG TAB 351011 DIAZEPAM Inactive FLAGYL 500 MG TAB 1 tablet by mouth bid FLAGYL 500 MG TAB 347983 METRONIDAZOLE Inactive DICLOFENAC POTASSIUM TABS Take 1 tablet twice a day (pt. is not sure of the dose.) DICLOFENAC POTASSIUM TABS DICLOFENAC POTASSIUM TABS Inactive ZITHROMAX Z-EARNEST 250 MG TABS 2 today and then 1 daily for 4 days ZITHROMAX Z-EARNEST 250 MG TABS 3750738 AZITHROMYCIN Inactive PREDNISONE 20 MG TABS 2 daily for 5 days then 1 daily for 5 days PREDNISONE 20 MG TABS 089345 PREDNISONE Inactive PROAIR HFA 108 (90 BASE) MCG/ACT AERS 2 puffs four times a day as needed 2015 PROAIR HFA 108 (90 BASE) MCG/ACT AERS ALBUTEROL SULFATE Inactive HYDROCODONE-ACETAMINOPHEN 5-325 MG TABS 1 to 2 four times a day as needed for pain use until can be seen by specialist HYDROCODONE- ACETAMINOPHEN 5-325 MG TABS 037637 HYDROCODONE-ACETAMINOPHEN Inactive TESSALON PERLES 100 MG CAP 1 to 2 tablets by mouth 3 times daily as needed for cough TESSALON PERLES 100 MG CAP 862531 BENZONATATE Inactive CHANTIX STARTING MONTH EARNEST 0.5 [...] Pain 2015 DICLOFENAC SODIUM 50 MG TBEC 220619 DICLOFENAC SODIUM Inactive TOPAMAX 50 MG ORAL TABS 1 tab twice daily TOPAMAX 50 MG ORAL TABS 613259 TOPIRAMATE Inactive VIIBRYD 10 MG ORAL TABS Take 1 tablet once a day VIIBRYD 10 MG ORAL TABS VILAZODONE HCL Inactive LEVOFLOXACIN 500 MG ORAL TABS po daily LEVOFLOXACIN 500 MG ORAL TABS 622909 LEVOFLOXACIN Inactive METHYLPREDNISOLONE 4 MG ORAL TABS po daily METHYLPREDNISOLONE 4 MG ORAL TABS 495981 METHYLPREDNISOLONE Inactive OXYCODONE HCL ER 10 MG ORAL T12A 1/2 tab by mouth every 4 hours prn OXYCODONE HCL ER 10 MG ORAL T12A OXYCODONE HCL Inactive FLAGYL 500 MG TAB 1 tablet by mouth bid FLAGYL 500 MG TAB 996105 METRONIDAZOLE Inactive MONISTAT 7 COMBO PACK WOODROW 100 & 2 MG-% (9GM) VAG KIT 1 applicatorful per vagina q pm x 7 MONISTAT 7 COMBO PACK WOODROW 100 & 2 MG-% (9GM) VAG KIT MICONAZOLE NITRATE Inactive CEFDINIR 300 MG CAPS by mouth twice a day CEFDINIR 300 MG CAPS 571201 CEFDINIR Inactive PREDNISONE 20 MG TAB 2 tabs daily for 3 days, 1 tab daily for 3 days, 1/2 tab daily for 2 days PREDNISONE 20 MG TAB 694776 PREDNISONE Inactive BACTRIM DS 800-160 MG TABS 1 po BID x 7 days BACTRIM DS 800-160 MG TABS 264995 SULFAMETHOXAZOLE-TRIMETHOPRIM Inactive DIFLUCAN 150 MG TABS 1 pill every other day x 2 doses DIFLUCAN 150 MG TABS 516975 FLUCONAZOLE Inactive BACTRIM DS 800-160 MG TABS 1 pill by mouth twice daily BACTRIM DS 800-160 MG TABS 620600 SULFAMETHOXAZOLE-TRIMETHOPRIM Inactive KEFLEX 500 MG CAP 1 po TID x 10 days KEFLEX 500 MG CAP 021887 CEPHALEXIN Inactive Advance Directives Directive Description Start [...] % 11.6-14.8 platelet count 394 10^3/MM^3 10*3/mm3 940-945 9638/01/11 leukocyte count, blood 13.8 10^3/MM^3 10*3/mm3 4.6-10.2 [...] 379 10^3/MM^3 10*3/mm3 142-424 Lab Report: Chlamydia/GC APTIMA/[id number] - Lab chlamydia DNA probe NOT DETECTED NOT DETECTED Lab Report: Chlamydia/GC [facility]TIMA/[id number] - Microbiology Neisseria gonorrhoeae DNA probe NOT DETECTED NOT DETECTED Lab Report: Comp. Metabolic Panel - Chemistry sodium, serum 139 mmol/L 014-387 9751/12/22 carbon dioxide, venous blood 26.8 mmol/L 21.0-32.0 potassium, serum 4.2 mmol/L 3.5-5.2 chloride, serum 103 mmol/L 98-107 blood glucose 115 mg/dL 65-110 urea nitrogen, blood 20 mg/dL 7-18 creatinine, serum 0.90 mg/dL 0.55-1.30 alanine aminotransferase (SGPT), serum 38 U/L 12-78 aspartate aminotransferase (SGOT), serum 19 U/L 15-37 calcium, serum 8.6 mg/dL 8.5-10.1 bilirubin, serum, total 0.30 mg/dL 0.00-1.00 sodium, serum 139 mmol/L 899-866 6558/01/11 carbon dioxide, venous blood 26.6 mmol/L 21.0-32.0 potassium, serum 4.1 mmol/L 3.5-5.2 chloride, serum 100 mmol/L 98-107 blood glucose 86 mg/dL 65-110 urea nitrogen, blood 16 mg/dL 7-18 creatinine, serum 1.00 mg/dL 0.55-1.30 alanine aminotransferase (SGPT), serum 48 U/L 78 aspartate aminotransferase (SGOT), serum 17 U/L 15-37 calcium, serum 9.1 mg/dL 8.5-10.1 bilirubin, serum, total 0.40 mg/dL 0.00-1.00 sodium, serum 142 mmol/L 986-931 4168/06/08 carbon dioxide, venous blood 27.6 mmol/L 21.0-32.0 potassium, serum 4.0 mmol/L 3.5-5.2 chloride, serum 105 mmol/L 98-107 blood glucose 95 mg/dL 65-110 urea nitrogen, blood 8 mg/dL 7-18 creatinine, serum 0.75 mg/dL 0.55-1.30 alanine aminotransferase (SGPT), serum 49 U/L 12- aspartate aminotransferase (SGOT), serum 28 U/L 15-37 calcium, serum 9.4 mg/dL 8.5-10.1 bilirubin, serum, total 0.30 mg/dL 0.00-1.00 sodium, serum 140 mmol/L 882-672 5663/08/08 carbon dioxide, venous blood 33.7 mmol/L 21.0-32.0 [...] Rate - Chemistry sodium, serum 139 mmol/L 936-069 2480/12/11 carbon dioxide, venous blood 25.4 mmol/L 21.0-32.0 [...] semiquantitative Negative Negative Lab Report: UADIP W/MICRO, AUTO - Chemistry [...] mg/dL Encounters Code Encounter Date Provider Facility CPT-03789 Level 3 Est. Patient 15:07:06 PHYSICAL EDUCATION PROFESSOR Neeraj Collins MD [facility] CPT-04450 Level 4 Est. Patient 14:45:00 PHYSICAL EDUCATION PROFESSOR Ahmet Carbajal MD [facility] CPT-67967 Level 3 Est. Patient 13:59:59 CDT Luigi Martínez [facility] CPT-00842 Level 3 Est. Patient 18:18:53 CDT Neeraj Collins MD [facility] CPT-44233 Level 3 Est. Patient 15:50:44 CDT Vishal Hui MD [facility] CPT-55454 Level 3 Est. Patient 11:36:17 CDT Ahmet Carbajal MD [facility] CPT-21898 Level 3 Est. Patient 13:29:16 CDT Vishal Hui MD [facility] CPT-11477 Level 3 Est. Patient 14:27:52 CDT Neeraj Collins MD [facility] CPT-96719 Level 3 Est. Patient 08:56:03 CDT Luigi Martínez [facility] CPT-45501 Level 4 Est. Patient 12:11:48 CDT Fabiola Johnson [facility] CPT-39987 Level 3 New Patient 16:53:37 CDT Albert Caldera MD [facility] CPT-42187 Level 3 Est. Patient 11:25:49 CDT Renzo Thornton DO [facility] CPT-31141 Level 3 Est. Patient 15:22:01 CDT Ahmet Carbajal MD [facility] CPT-29462 Level 4 Est. Patient 09:00:51 PHYSICAL EDUCATION PROFESSOR Vishal Hui MD [facility] CPT-58703 Level 3 Est. Patient 11:37:33 PHYSICAL EDUCATION PROFESSOR Vishal Hui MD [facility] CPT-53141 Level 3 Est. Patient 08:41:09 PHYSICAL EDUCATION PROFESSOR Vishal Hui MD [facility] CPT-07952 Level 4 Est. Patient 10:19:35 PHYSICAL EDUCATION PROFESSOR Vishal Hui MD [facility] CPT-87125 Level 3 Est. Patient 13:35:45 CDT Vishal Hui MD [facility] CPT-21146 Level 4 Est. Patient 10:08:37 CDT Vishal Hui MD [facility] CPT-73273 Level 3 Est. Patient 11:22:10 CDT Vishal Hui MD [facility] CPT-30916 Level 3 Est. Patient 11:03:32 CDT Sahara Rodriguez MD [facility]-06694 Level 3 Est. Patient 09:41:35 CDT Vishal Hui MD [facility] CPT-68615 Level 3 Est. Patient 12:00:41 CDT Neeraj Collins MD [facility] CPT-88479 Level 3 Est. Patient 09:16:24 CDT Vishal Hui MD [facility] CPT-56498 Level 4 Est. Patient 13:59:09 CDT Neeraj Collins MD [facility] CPT-38094 Level 3 Est. Patient 15:19:43 CDT Renzo Thornton DO [facility] CPT-60568 Level 3 Est. Patient 18:10:26 CDT Sahara Rodriguez MD [facility]-90710 Level 3 Est. Patient 14:49:50 CDT Vishal Hui MD [facility] CPT-67277 Level 4 Est. Patient 18:41:46 CDT Neeraj Collins MD [facility] CPT-64204 Level 4 Est. Patient 09:18:38 PHYSICAL EDUCATION PROFESSOR Vishal Hui MD [facility] CPT-14999 Level 3 Est. Patient 14:43:55 PHYSICAL EDUCATION PROFESSOR Vishal Hui MD [facility] CPT-41063 Level 3 Est. Patient 15:26:33 PHYSICAL EDUCATION PROFESSOR Sahara Rodriguez MD [facility] CPT-35564 Level 3 Est. Patient 10:32:14 PHYSICAL EDUCATION PROFESSOR Vishal Hui MD [facility] CPT-16746 Level 3 Est. Patient 15:12:52 PHYSICAL EDUCATION PROFESSOR Vishal Hui MD [facility] CPT-86522 Level 4 Est. Patient 09:19:27 CDT Vishal Hui MD [facility] CPT-35572 Level 3 Est. Patient 15:53:00 CDT Renzo Thornton [facility] CPT-92162 Level 3 Est. Patient 15:50:30 CDT Renzo Thornton [facility] CPT-77877 Level 3 Est. 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 CPT-36258 Nexplanon Removal with Reinsertion 14:09:32 CDT CPT-J7307 Nexplanon (Implant) 14:09:32 CDT CPT-OV Office Visit 14:09:32 CDT CPT-05906 UA w micro - LAB USE ONLY 16:21:13 CDT CPT-13828 Wet Mount - LAB USE ONLY 16:21:13 CDT CPT-40921 First Vx - Ix admin for Medicare patients 14:37:47 CDT CPT-15283 Fluzone Preservative Free Intramuscular Suspension 14:37 :47 CDT CPT-85244 Abx/Therapy Injection 13:54:22 CDT CPT-02919 Abx/Therapy Injection 08:47:09 CDT CPT-39495 Abx/Therapy Injection 13:29:56 CDT CPT-78956 Abx/Therapy Injection 08:36:16 CDT CPT-62741 Wet Mount - LAB USE ONLY 17:44:58 CDT CPT-04624 UA w micro - LAB USE ONLY 17:44:58 CDT CPT-68661 CMP - LAB USE ONLY 17:44:58 CDT CPT-07116 Venipuncture Draw Fee 17:44:58 CDT CPT-12593 Cervical Min 4V - XRAY USE ONLY 09:01:40 CDT CPT-81707 Chest 2V Frontal and Lat - XRAY USE ONLY 11:06:31 CDT CPT-49163 EKG Trac and Interp - XRAY USE ONLY 11:31:43 CDT 08/26 CPT-J3420 Vitamin B12 1000mcg (Cyanocobalamin) 08:10:26 PHYSICAL EDUCATION PROFESSOR 04/12 CPT-89876 Abx/Therapy Injection 08:10:26 PHYSICAL EDUCATION PROFESSOR CPT-G0438 Initial Annual Wellness Exam 19:01:01 PHYSICAL EDUCATION PROFESSOR CPT-J3420 Vitamin B12 1000mcg (Cyanocobalamin) 16:57:46 CDT 08/14 CPT-25698 Recombivax HB Injection Suspension 5 MCG/0.5ML 08:37:50 PHYSICAL EDUCATION PROFESSOR CPT-36062 Immunization Single Admin 08:37:50 PHYSICAL EDUCATION PROFESSOR CPT-J3420 Vitamin B12 1000mcg (Cyanocobalamin) 08:32:16 PHYSICAL EDUCATION PROFESSOR 03/11 CPT-79451 Abx/Therapy Injection 08:32:16 PHYSICAL EDUCATION PROFESSOR CPT-89618 Chest 2V Frontal and Lat 11:46:38 PHYSICAL EDUCATION PROFESSOR CPT-17067 Venipuncture Draw Fee 09:12:45 PHYSICAL EDUCATION PROFESSOR CPT-J3420 Vitamin B12 1000mcg (Cyanocobalamin) 08:50:15 PHYSICAL EDUCATION PROFESSOR 02/08 CPT-46896 Abx/Therapy Injection 08:50:15 PHYSICAL EDUCATION PROFESSOR CPT-Cryo Cryotherapy 10:19:35 PHYSICAL EDUCATION PROFESSOR CPT-000 Give Appropriate Flu Vaccine 09:22:16 CDT CPT-J3420 Vitamin B12 1000mcg (Cyanocobalamin) 19:08:57 CDT 01/11 CPT-28049 Abx/Therapy Injection 19:08:57 CDT CPT-J3420 Vitamin B12 1000mcg (Cyanocobalamin) 08:19:08 CDT 12/11 CPT-30023 Abx/Therapy Injection 08:19:08 CDT CPT-J3420 Vitamin B12 1000mcg (Cyanocobalamin) 14:48:00 CDT 11/09 CPT-55731 Abx/Therapy Injection 14:47:59 CDT CPT-J3420 Vitamin B12 1000mcg (Cyanocobalamin) 08:34:04 CDT 10/09 CPT-89165 Abx/Therapy Injection 08:34:04 CDT CPT-J3420 Vitamin B12 1000mcg (Cyanocobalamin) 09:18:52 CDT 09/11 CPT-85643 Abx/Therapy Injection 09:18:52 CDT CPT-J3420 Vitamin B12 1000mcg (Cyanocobalamin) 08:35:44 CDT 09/04 CPT-47702 Abx/Therapy Injection 08:35:44 CDT CPT-55621 Immunization Single Admin 11:07:16 CDT CPT-49065 Hepatitis B adult IM 11:07:16 CDT CPT-J3420 Vitamin B12 1000mcg (Cyanocobalamin) 11:00:49 CDT 08/28 CPT-J1040 Depo Medrol 80 mg (Methyl Prednisolone Acetate) 11:00: 49 CDT CPT-08703 Abx/Therapy Injection 11:00:49 CDT CPT-J1040 Depo Medrol 80 mg (Methyl Prednisolone Acetate) 09:16: 23 CDT CPT-J3420 Vitamin B12 1000mcg (Cyanocobalamin) 08:27:05 CDT 08/20 CPT-91194 Abx/Therapy Injection 08:27:05 CDT CPT-93469 Recombivax HB Injection Suspension 5 MCG/0.5ML 10:00:41 CDT CPT-16759 Administration single or combination vaccine inc oral 10 :00:41 CDT CPT-72531 Sono transvag pelvis non OB uterus ovaries cervix 16:36: 57 CDT CPT-19572 LS spine comp w obliq 09:50:55 PHYSICAL EDUCATION PROFESSOR CPT-73490 Abd compl w upright 09:50:55 PHYSICAL EDUCATION PROFESSOR CPT-J1100 Decadron 4mg (Dexamethasone) 15:51:24 PHYSICAL EDUCATION PROFESSOR CPT-J1030 Depo Medrol 40 mg (Methyl Prednisolone Acetate) 15:51: 24 PHYSICAL EDUCATION PROFESSOR CPT-61060 Abx/Therapy Injection 15:51:24 PHYSICAL EDUCATION PROFESSOR CPT-J1100 Decadron 4mg (Dexamethasone) 15:26:33 PHYSICAL EDUCATION PROFESSOR CPT-J1030 Depo Medrol 40 mg (Methyl Prednisolone Acetate) 15:26: 33 PHYSICAL EDUCATION PROFESSOR CPT-14503 Sono retroperitoneal complete kidneys and bladder 17:15: 30 CDT CPT-77534 Abd compl w upright 16:09:25 CDT CPT-J1100 Decadron 8mg (Dexamethasone) 17:07:57 CDT CPT-45349 Abx/Therapy Injection 17:07:57 CDT CPT-J1100 Decadron 8mg (Dexamethasone) 16:55:24 CDT CPT-23001 Chest 2V Frontal and Lat 16:32:44 CDT
--- OUTSIDE RECORDS SUMMARY | 2016-11-04 13:21 | XMS REPORT ---
Author Author [facility] Medical Staff Organization [facility] Address [address] [place], [place] [id number] Phone [phone] Care Team Providers Care Slasher Operator Name Role Phone TINO ABRAMS MD PP [phone] TION ABRAMS MD, PP [phone] Summary purpose TRANSITION OF CARE AUTO GENERATION [...]
--- OUTSIDE RECORDS SUMMARY | 2016-11-04 13:21 | XMS REPORT | Clinical Summary ---
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 Juliet Kimbrough APRN Dependence on other enabling machines and devices Gait unsteady 781.2 Resolved Albert Caldera MD Abnormality of gait Lipoma 214.9 Resolved Albert Caldera MD Lipoma, unspecified site Abdominal pain, RUQ 789.01 Resolved Albert Caldera MD Abdominal pain, right upper quadrant Chest pain, acute 786.50 Resolved Albert Caldera MD Unspecified chest pain Localized adiposity 278.1 Resolved iVshal Hui MD Localized adiposity Shortness of breath 786.05 Resolved Vishal Hui MD Shortness of breath Nocturnal hypoxia 799.02 Active Fabiola Johnson [employer]LE [employer]ER HAND Hypoxemia Neck pain 723.1 Resolved Vishal Hui [...] vagina q pm x 7 MICONAZOLE NITRATE 75066987469 Active Pacollina Johnl SOLE STITCHER HAND Active FLAGYL 500 MG TAB 1 tablet by mouth bid METRONIDAZOLE 96597013204 Active Jillina Frazell SOLE STITCHER HAND Active TESSALON PERLES 100 MG CAP 1 to 2 tablets by mouth 3 times daily as needed for cough BENZONATATE 73641238892 No Longer Active Tataina Messizell SOLE STITCHER HAND Active ABILIFY MAINTENA 400 MG IM SUSR 400mg injection every 26 days ARIPIPRAZOLE 44117626315 Active Silvia Casey [employer] Active IMITREX 50 MG ORAL TABS 0.5 po x 1 PRN Headache. May repeat dose x 1 in 2 hours if needed SUMATRIPTAN SUCCINATE 04294809308 Active Vishal Hui MD Active OXYCODONE HCL ER 10 MG ORAL T12A 1/2 tab by mouth every 4 hours prn OXYCODONE HCL 31567870642 Active Neeraj Collins MD Active METHYLPREDNISOLONE 4 MG ORAL TABS po daily METHYLPREDNISOLONE 82513487194 Active Vishal Hui MD Active LEVOFLOXACIN 500 MG ORAL TABS po daily LEVOFLOXACIN 79320659550 Active Vishal Hui MD Active CHANTIX STARTING MONTH EARNEST 0.5 MG X 11 & 1 MG X 42 TABS take as directed 2015 VARENICLINE TARTRATE 15534352220 Active Ahmet Carbajal MD Active CHANTIX 1 MG TABS 1 twice a day to help quit smoking VARENICLINE TARTRATE 85285588208 Active Ahmet Carbajal MD Active HYDROCODONE-ACETAMINOPHEN 5-325 MG TABS 1 to 2 four times a day as needed for pain use until can be seen by specialist HYDROCODONE- ACETAMINOPHEN 18967573800 No Longer Active Vishal Hui MD Active PROAIR HFA 108 (90 BASE) MCG/ACT AERS 2 puffs four times a day as needed 2015 ALBUTEROL SULFATE 50284076082 No Longer Active Vishal Hui MD Active PREDNISONE 20 MG TABS 2 daily for 5 days then 1 daily for 5 days PREDNISONE 19597434628 No Longer Active Vishal Hui MD Active ZITHROMAX Z-EARNEST 250 MG TABS 2 today and then 1 daily for 4 days AZITHROMYCIN 59467784478 No Longer Active Vishal Hui MD Active DICLOFENAC SODIUM 50 MG TBEC 1 tablet by mouth four times daily PRN Pain 2015 DICLOFENAC SODIUM 09123008643 Active Vishal Hui MD Active DICLOFENAC POTASSIUM TABS Take 1 tablet twice a day (pt. is not sure of the dose.) DICLOFENAC POTASSIUM TABS 04457221205 No Longer Active Vishal Hui MD Active VERAPAMIL HCL ER 120 MG ORAL CR-TABS Take 1 tablet by mouth twice a day. VERAPAMIL HCL 10667373326 Active Vishal Hui MD Active FLAGYL 500 MG TAB 1 tablet by mouth bid METRONIDAZOLE 81024032704 No Longer Active Vishal Hui MD Active FLUTICASONE PROPIONATE 50 MCG/ACT SUSP 2 sprays each nostril daily before bed. FLUTICASONE PROPIONATE 15035808617 Active Fabiola Johnson APRN Active ADZENYS XR-ODT 6.3 MG ORAL TBED 1 tab po daily for ADHD AMPHETAMINE 60334062745 Active Fabiola Johnson APRN Active BENADRYL 25 MG CAP 4 po at bedtime for insomnia DIPHENHYDRAMINE HCL 91721893410 Active Fabiola Johnson APRN Active KLONOPIN 1 MG ORAL TABS 1 tab po TID CLONAZEPAM 65990542688 Active Fabiola Johnson APRN Active VALIUM 5 MG TAB Take 1-2 tablets daily DIAZEPAM 43507864813 No Longer Active Fabiola Johnson APRN Active METOPROLOL TARTRATE 25 MG ORAL TABS 1/2 tablet twice daily for heart rate and blood pressure METOPROLOL TARTRATE 08192968650 No Longer Active Fabiola Johnson APRN Active MIRALAX ORAL POWD 17GMS DAILY IN WATER POLYETHYLENE GLYCOL 3350 74648972939 Active Vishal Hui MD Active VIIBRYD 10 MG ORAL TABS Take 1 tablet once a day VILAZODONE HCL 21108232099 Active Ahmet Carbajal MD Active MIRALAX PACK 1 po qd PRN Constipation POLYETHYLENE GLYCOL 3350 01763586114 No Longer Active Ahmet Carbajal MD Active MINIPRESS 2 MG CAPS 4 cap po at night PRAZOSIN HCL 59535071469 No Longer Active Ahmet Carbajal MD Active PIROXICAM 20 MG CAPS 1 cap po qd PRN Pain PIROXICAM 35822784764 No Longer Active Ahmet Carbajal MD Active TRAMADOL HCL 50 MG TABS 1-2 po TID PRN Pain TRAMADOL HCL 32931296611 No Longer Active Ahmet Carbajal MD Active METOPROLOL TARTRATE 50 MG TAB 1 po bid METOPROLOL TARTRATE 98097500049 No Longer Active Ahmet Carbajal MD Active ABILIFY 15 MG ORAL TABS 1 tab daily ARIPIPRAZOLE 74813200718 No Longer Active Ahmet Carbajal MD Active PROZAC 20 MG ORAL CAPS 1 tab daily FLUOXETINE HCL 33764700825 No Longer Active Ahmet Carbajal MD Active AMBIEN 5 MG ORAL TABS 1 tab at bedtime ZOLPIDEM TARTRATE 73727658205 No Longer Active Ahmet Carbajal MD Active PREDNISONE 20 MG TAB 2 tabs daily for 4 days, 1 tab daily for 4 days, 1/2 tab daily for 4 days PREDNISONE 53560724533 No Longer Active Ahmet Carbajal MD Active KEFLEX 500 MG CAP 1 po TID x 10 days CEPHALEXIN 91739584560 No Longer Active Vishal Hui MD Active TOPAMAX 50 MG ORAL TABS 1 tab twice daily TOPIRAMATE 28554073786 Active Vishal Hui MD Active SAPHRIS 5 MG SUBL 1 po bid ASENAPINE MALEATE 28701495228 No Longer Active Luigi Martínez SOLE STITCHER HAND Active LATUDA 80 MG TABS Take one by mouth daily LURASIDONE HCL 90245930702 No Longer Active Jillina Johnl SOLE STITCHER HAND Active AMLODIPINE BESYLATE 5 MG TABS 1 tablet by mouth daily AMLODIPINE BESYLATE 37719016693 No Longer Active Luigi Martínez SOLE STITCHER HAND Active AMITRIPTYLINE HCL 100 MG TAB one at hs AMITRIPTYLINE HCL 37362300920 No Longer Active Vishal Hui MD Active TRAZODONE HCL 100 MG TAB take 1 at bedtime TRAZODONE HCL 71033608757 No Longer Active Vishal Hui MD Active VYVANSE 40 MG CAPS 1 daily, LISDEXAMFETAMINE DIMESYLATE 43779128347 No Longer Active Vishal Hui MD Active IBUPROFEN 600 MG TAB 1 po TID PRN IBUPROFEN 81498903472 No Longer Active Vishal Hui MD Active PROZAC 20 MG CAP Take one by mouth daily FLUOXETINE HCL 75874511621 No Longer Active Vishal Hui MD Active ZOFRAN 4 MG TABS 1 po q6hr PRN Nausea ONDANSETRON HCL Active Vishal Hui MD Active BACTRIM DS 800-160 MG TABS 1 pill by mouth twice daily SULFAMETHOXAZOLE-TRIMETHOPRIM 61358389816 No Longer Active Sahara Rodriguez MD PhD Active DIFLUCAN 150 MG TAB 1 tablet by mouth daily FLUCONAZOLE 21246124166 No Longer Active Vishal Hui MD Active TIZANIDINE HCL 4 MG TABS 1 po q6hr PRN Muscle Spasm/Back Pain TIZANIDINE HCL 06875840760 Active Vishal Hui MD Active CLINDAMYCIN HCL 150 MG CAPS 1 four times a day CLINDAMYCIN HCL 55325264786 No Longer Active Neeraj Collins MD Active KEFLEX 500 MG ORAL CAPS 1 cap QID by mouth CEPHALEXIN 49337601331 No Longer Active Neeraj Collins MD Active DIFLUCAN 150 MG TABS 1 pill every other day x 2 doses FLUCONAZOLE 88850405530 No Longer Active Sahara Rodriguez MD PhD Active MELATONIN 3 MG CAPS 2 po q hs MELATONIN 19219200987 No Longer Active Sahara Rodriguez MD PhD Active MULTIVITAMINS CAPS Take one by mouth daily MULTIPLE VITAMIN 93239628429 No Longer Active Sahara Rodriguez MD PhD Active BACTRIM DS 800-160 MG TAB 1 tab by mouth twice daily TRIMETHOPRIM-SULFAMETHOXAZOLE 76596649424 No Longer Active Sahara Rodriguez MD PhD Active [facility] PROBIOTIC ORAL CHEW 2 daily po PROBIOTIC PRODUCT 06162382544 No Longer Active Sahara Rodriguez MD PhD Active BACTRIM DS 800-160 MG TABS 1 po BID x 7 days SULFAMETHOXAZOLE-TRIMETHOPRIM 47659892138 No Longer Active Vishal Hui MD Active CHANTIX STARTING MONTH EARNEST 0.5 MG X 11 & 1 MG X 42 TABS 0.5mg daily for 3 days , then 0.5mg BID for 4 days, then 1mg BID VARENICLINE TARTRATE 12221770948 No Longer Active TAMARA Gray Active VERAPAMIL HCL CR 120 MG TAB CR 1 po bid VERAPAMIL HCL 63712109753 No Longer Active Vishal Hui MD Active METOPROLOL SUCCINATE 50 MG TB24 1 tablet by mouth daily METOPROLOL SUCCINATE 13615469375 No Longer Active Vishal Hui MD Active SAPHRIS 10 MG SUBL 1 tab po bid ASENAPINE MALEATE 62952600739 No Longer Active Vishal Hui MD Active LISINOPRIL 20 MG TABS 1 tab po qd LISINOPRIL 86045502463 No Longer Active Vishal Hui MD Active LATUDA 20 MG TABS Take one by mouth daily LURASIDONE HCL 86658911599 No Longer Active Vishal Hui MD Active TRAZODONE HCL 50 MG TABS 1/2 tab po qd prn for anxiety TRAZODONE HCL 47172108368 No Longer Active Vishal Hui MD Active OMEPRAZOLE 20 MG TBEC 1 po q a.m. 30min prior to first food intake OMEPRAZOLE 90364547220 Active Vishal Hui MD Active RANITIDINE HCL 150 MG CAPS 1 twice a day RANITIDINE HCL 77781637533 Active Jillina Messidwightl SOLE STITCHER HAND Active LINZESS 290 MCG CAPS Take one by mouth daily LINACLOTIDE 00011927331 No Longer Active Vishal Hui MD Active SAPHRIS 5 MG SUBL 1 tab po qd ASENAPINE MALEATE 33974643769 No Longer Active Vishal Hui MD Active ZALEPLON 10 MG CAPS 1 cap po every other night ZALEPLON 32058127086 No Longer Active Vishal Hui MD Active LYRICA 50 MG CAPS 1 tab po TID PREGABALIN 12968182680 No Longer Active Vishal Hui MD Active LORATADINE 10 MG TABS 1 tab po qd LORATADINE 82441791717 No Longer Active Vishal Hui MD Active VERAPAMIL HCL ER 180 MG CR-TABS 1 tab po bid VERAPAMIL HCL 74162716749 No Longer Active Vishal Hui MD Active MIRALAX POWD 1 capfull once daily POLYETHYLENE GLYCOL 3350 02596588027 No Longer Active Vishal Hui MD Active PREDNISONE 20 MG TABS 1 tab po qd PREDNISONE 52228804749 No Longer Active Renzo Thornton DO Active LEVOFLOXACIN 500 MG TABS 1 tab po qd LEVOFLOXACIN 99582683482 No Longer Active Renzo Thornton DO Active BUSPIRONE HCL 15 MG TABS 1 tab po TID BUSPIRONE HCL 12751314923 No Longer Active Renzo Thornton DO Active BENZTROPINE MESYLATE 1 MG TABS 1 tab po qd BENZTROPINE MESYLATE 26217067461 No Longer Active Renzo Thornton DO Active ATENOLOL 25 MG TABS 1 tab po qd ATENOLOL 85727638875 No Longer Active Renzo Thornton DO Active ESCITALOPRAM OXALATE 20 MG TABS 1 tab po qd ESCITALOPRAM OXALATE 65590024232 No Longer Active Renzo Thornton DO Active ADVAIR DISKUS 250-50 MCG/DOSE AEPB 1 puff BID FLUTICASONE-SALMETEROL 71562807933 No Longer Active Renzo Thornton DO Active PREDNISONE 20 MG TAB 2 tabs daily for 3 days, 1 tab daily for 3 days, 1/2 tab daily for 2 days PREDNISONE 57669076802 No Longer Active Vishal Hui MD Active CEFDINIR 300 MG CAPS by mouth twice a day CEFDINIR 57047832348 No Longer Active Vishal Hui MD Active LANSOPRAZOLE 30 MG CPDR 1 cap po qd LANSOPRAZOLE 19533332661 No Longer Active Vishal Hui MD Active BACLOFEN 20 MG TABS 1 tab po tid BACLOFEN 26869116740 No Longer Active Vishal Hui MD Active ADVAIR DISKUS 250-50 MCG/DOSE AEPB 1 puff BID ADVAIR DISKUS 250-50 MCG/DOSE AEPB FLUTICASONE-SALMETEROL Inactive ESCITALOPRAM OXALATE 20 MG TABS 1 tab po qd ESCITALOPRAM OXALATE 20 MG TABS 847842 ESCITALOPRAM OXALATE Inactive ATENOLOL 25 MG TABS 1 tab po qd ATENOLOL 25 MG TABS 547685 ATENOLOL Inactive BENZTROPINE MESYLATE 1 MG TABS 1 tab po qd BENZTROPINE MESYLATE 1 MG TABS 382840 BENZTROPINE MESYLATE Inactive BUSPIRONE HCL 15 MG TABS 1 tab po TID BUSPIRONE HCL 15 MG TABS 217507 BUSPIRONE HCL Inactive LEVOFLOXACIN 500 MG TABS 1 tab po qd LEVOFLOXACIN 500 MG TABS 867339 LEVOFLOXACIN Inactive PREDNISONE 20 MG TABS 1 tab po qd PREDNISONE 20 MG TABS 317163 PREDNISONE Inactive MIRALAX POWD 1 capfull once daily MIRALAX POWD 066478 POLYETHYLENE GLYCOL 3350 Inactive VERAPAMIL HCL ER 180 MG CR-TABS 1 tab po bid VERAPAMIL HCL ER 180 MG CR-TABS VERAPAMIL HCL Inactive LORATADINE 10 MG TABS 1 tab po qd LORATADINE 10 MG TABS 088961 LORATADINE Inactive LYRICA 50 MG CAPS 1 tab po TID LYRICA 50 MG CAPS PREGABALIN Inactive ZALEPLON 10 MG CAPS 1 cap po every other night ZALEPLON 10 MG CAPS 105450 ZALEPLON Inactive SAPHRIS 5 MG SUBL 1 tab po qd SAPHRIS 5 MG SUBL ASENAPINE MALEATE Inactive TRAZODONE HCL 50 MG TABS 1/2 tab po qd prn for anxiety TRAZODONE HCL 50 MG TABS 285168 TRAZODONE HCL Inactive LATUDA 20 MG TABS Take one by mouth daily LATUDA 20 MG TABS LURASIDONE HCL Inactive LISINOPRIL 20 MG TABS 1 tab po qd LISINOPRIL 20 MG TABS 972001 LISINOPRIL Inactive SAPHRIS 10 MG SUBL 1 [...] twice daily BACTRIM DS 800-160 MG TAB 812702 TRIMETHOPRIM-SULFAMETHOXAZOLE Inactive MULTIVITAMINS CAPS Take one by mouth daily MULTIVITAMINS CAPS MULTIPLE VITAMIN Inactive MELATONIN 3 MG CAPS 2 po q hs MELATONIN 3 MG CAPS 745078 MELATONIN Inactive KEFLEX 500 MG ORAL CAPS 1 cap QID by mouth KEFLEX 500 MG ORAL CAPS 482570 CEPHALEXIN Inactive CLINDAMYCIN HCL 150 MG CAPS 1 four times a day CLINDAMYCIN HCL 150 MG CAPS 780908 CLINDAMYCIN HCL Inactive DIFLUCAN 150 MG TAB 1 tablet by mouth daily DIFLUCAN 150 MG TAB 759601 FLUCONAZOLE Inactive PROZAC 20 MG CAP Take one by mouth daily PROZAC 20 MG CAP 640224 FLUOXETINE HCL Inactive IBUPROFEN 600 MG TAB 1 po TID PRN IBUPROFEN 600 MG TAB 715283 IBUPROFEN Inactive VYVANSE 40 MG CAPS 1 daily, VYVANSE 40 MG CAPS LISDEXAMFETAMINE DIMESYLATE Inactive TRAZODONE HCL 100 MG TAB take 1 at bedtime TRAZODONE HCL 100 MG TAB 981811 TRAZODONE HCL Inactive AMITRIPTYLINE HCL 100 MG TAB one at hs AMITRIPTYLINE HCL 100 MG TAB 807564 AMITRIPTYLINE HCL Inactive AMLODIPINE BESYLATE 5 MG TABS 1 tablet by mouth daily AMLODIPINE BESYLATE 5 MG TABS 725488 AMLODIPINE BESYLATE Inactive LATUDA 80 MG TABS Take one by mouth daily LATUDA 80 MG TABS LURASIDONE HCL Inactive SAPHRIS 5 MG SUBL 1 po bid SAPHRIS 5 MG SUBL ASENAPINE MALEATE Inactive PREDNISONE 20 MG TAB 2 tabs daily for 4 days, 1 tab daily for 4 days, 1/2 tab daily for 4 days PREDNISONE 20 MG TAB 757348 PREDNISONE Inactive AMBIEN 5 MG ORAL TABS 1 tab at bedtime AMBIEN 5 MG ORAL TABS 869083 ZOLPIDEM TARTRATE Inactive PROZAC 20 MG ORAL CAPS 1 tab daily PROZAC 20 MG ORAL CAPS 298917 FLUOXETINE HCL Inactive ABILIFY 15 MG ORAL TABS 1 tab daily ABILIFY 15 MG ORAL TABS 282677 ARIPIPRAZOLE Inactive METOPROLOL TARTRATE 50 MG TAB 1 po bid METOPROLOL TARTRATE 50 MG TAB 705786 METOPROLOL TARTRATE Inactive TRAMADOL HCL 50 MG TABS 1-2 po TID PRN Pain TRAMADOL HCL 50 MG TABS 437927 TRAMADOL HCL Inactive PIROXICAM 20 MG CAPS 1 cap po qd PRN Pain PIROXICAM 20 MG CAPS 662945 PIROXICAM Inactive MINIPRESS 2 MG CAPS 4 cap po at night MINIPRESS 2 MG CAPS 929762 PRAZOSIN HCL Inactive MIRALAX PACK 1 po qd PRN Constipation MIRALAX PACK 186999 POLYETHYLENE GLYCOL 3350 Inactive METOPROLOL TARTRATE 25 MG ORAL TABS 1/2 tablet twice daily for heart rate and blood pressure METOPROLOL TARTRATE 25 MG ORAL TABS 640847 METOPROLOL TARTRATE Inactive VALIUM 5 MG TAB Take 1-2 tablets daily VALIUM 5 MG TAB 320872 DIAZEPAM Inactive FLAGYL 500 MG TAB 1 tablet by mouth bid FLAGYL 500 MG TAB 022497 METRONIDAZOLE Inactive DICLOFENAC POTASSIUM TABS Take 1 tablet twice a day (pt. is not sure of the dose.) DICLOFENAC POTASSIUM TABS DICLOFENAC POTASSIUM TABS Inactive ZITHROMAX Z-EARNEST 250 MG TABS 2 today and then 1 daily for 4 days ZITHROMAX Z-EARNEST 250 MG TABS 6132348 AZITHROMYCIN Inactive PREDNISONE 20 MG TABS 2 daily for 5 days then 1 daily for 5 days PREDNISONE 20 MG TABS 332874 PREDNISONE Inactive PROAIR HFA 108 (90 BASE) MCG/ACT AERS 2 puffs four times a day as needed 2015 PROAIR HFA 108 (90 BASE) MCG/ACT AERS ALBUTEROL SULFATE Inactive HYDROCODONE-ACETAMINOPHEN 5-325 MG TABS 1 to 2 four times a day as needed for pain use until can be seen by specialist HYDROCODONE- ACETAMINOPHEN 5-325 MG TABS 879141 HYDROCODONE-ACETAMINOPHEN Inactive TESSALON PERLES 100 MG CAP 1 to 2 tablets by mouth 3 times daily as needed for cough TESSALON PERLES 100 MG CAP 934415 BENZONATATE Inactive CEFDINIR 300 MG CAPS by mouth twice a day CEFDINIR 300 MG CAPS 606751 CEFDINIR Inactive PREDNISONE 20 MG TAB 2 tabs daily for 3 days, 1 tab daily for 3 days, 1/2 tab daily for 2 days PREDNISONE 20 MG TAB 267899 PREDNISONE Inactive BACTRIM DS 800-160 MG TABS 1 po BID x 7 days BACTRIM DS 800-160 MG TABS 19820521 SULFAMETHOXAZOLE-TRIMETHOPRIM Inactive DIFLUCAN 150 MG TABS 1 pill every other day x 2 doses DIFLUCAN 150 MG TABS 319229 FLUCONAZOLE Inactive BACTRIM DS 800-160 MG TABS 1 pill by mouth twice daily BACTRIM DS 800-160 MG TABS 19820521 SULFAMETHOXAZOLE-TRIMETHOPRIM Inactive KEFLEX 500 MG CAP 1 po TID x 10 days KEFLEX 500 MG CAP 164526 CEPHALEXIN Inactive Advance Directives Directive Description Start [...] % 11.6-14.8 platelet count 394 10^3/MM^3 10*3/mm3 774-951 5376/01/11 leukocyte count, blood 13.8 10^3/MM^3 10*3/mm3 4.6-10.2 [...] 142-424 Lab Report: CBC W/DIFF - Hematology neutrophils as percent of blood leukocytes 58.9 % 42.2-75.2 monocytes as percent of blood leukocytes 8.1 % 1.7-9.3 lymphocytes as percent of blood leukocytes 29.2 % 20.5-51.1 erythrocyte (RBC) count 4.26 10^6/MM^3 10*6/mm3 4.04-5.48 hemoglobin, blood 13.6 g/dL 12.0-16.0 leukocyte count, blood 11.4 10^3/MM^3 10*3/mm3 4.6-10.2 [...] Panel - Chemistry sodium, serum 139 mmol/L 028-455 0981/12/03 carbon dioxide, venous blood 28.5 mmol/L 21.0-32.0 [...] 5.5 % 4.3-6.0 cholesterol, serum 159 mg/dL 196-195 4106/12/03 triglyceride, serum, fasting 118 mg/dL 30-200 HDL [...] Panel - Chemistry sodium, serum 139 mmol/L 919-537 1705/12/22 carbon dioxide, venous blood 26.8 mmol/L 21.0-32.0 potassium, serum 4.2 mmol/L 3.5-5.2 chloride, serum 103 mmol/L 98-107 blood glucose 115 mg/dL 65-110 urea nitrogen, blood 20 mg/dL 7-18 creatinine, serum 0.90 mg/dL 0.55-1.30 alanine aminotransferase (SGPT), serum 38 U/L 12-78 aspartate aminotransferase (SGOT), serum 19 U/L 15-37 calcium, serum 8.6 mg/dL 8.5-10.1 bilirubin, serum, total 0.30 mg/dL 0.00-1.00 sodium, serum 139 mmol/L 924-310 3694/01/11 carbon dioxide, venous blood 26.6 mmol/L 21.0-32.0 potassium, serum 4.1 mmol/L 3.5-5.2 chloride, serum 100 mmol/L 98-107 blood glucose 86 mg/dL 65-110 urea nitrogen, blood 16 mg/dL 7-18 creatinine, serum 1.00 mg/dL 0.55-1.30 alanine aminotransferase (SGPT), serum 48 U/L aspartate aminotransferase (SGOT), serum 17 U/L -37 calcium, serum 9.1 mg/dL 8.5-10.1 bilirubin, serum, total 0.40 mg/dL 0.00-1.00 sodium, serum 142 mmol/L 489-635 7302/06/08 carbon dioxide, venous blood 27.6 mmol/L 21.0-32.0 potassium, serum 4.0 mmol/L 3.5-5.2 chloride, serum 105 mmol/L 98-107 blood glucose 95 mg/dL 65-110 urea nitrogen, blood 8 mg/dL 7-18 creatinine, serum 0.75 mg/dL 0.55-1.30 alanine aminotransferase (SGPT), serum 49 U/L aspartate aminotransferase (SGOT), serum 28 U/L 15-37 calcium, serum 9.4 mg/dL 8.5-10.1 bilirubin, serum, total 0.30 mg/dL 0.00-1.00 sodium, serum 140 mmol/L 026-742 6354/08/08 carbon dioxide, venous blood 33.7 mmol/L 21.0-32.0 [...] Rate - Chemistry sodium, serum 139 mmol/L 902-147 3155/12/11 carbon dioxide, venous blood 25.4 mmol/L 21.0-32.0 [...] semiquantitative Negative Negative urine color Yellow Colorless;Lightyellow;Straw;Yellow glucose, urine, semiquantitative [...] mg/dL Encounters Code Encounter Date Provider Facility CPT-02297 Level 3 Est. Patient 13:59:59 CDT Luigi Martínez [facility] CPT-70584 Level 3 Est. Patient 18:18:53 CDT Neeraj Collins MD [facility] CPT-33622 Level 3 Est. Patient 15:50:44 CDT Vishal Hui MD [facility] CPT-84033 Level 3 Est. Patient 11:36:17 CDT Ahmet Carbajal MD [facility] CPT-78554 Level 3 Est. Patient 13:29:16 CDT Vishal Hui MD [facility] CPT-14953 Level 3 Est. Patient 14:27:52 CDT Neeraj Collins MD [facility] CPT-97673 Level 3 Est. Patient 08:56:03 CDT Luigi Martínez [facility] CPT-47501 Level 4 Est. Patient 12:11:48 CDT Fabiola Johnson [facility] CPT-48387 Level 3 New Patient 16:53:37 CDT Albert Caldera MD [facility] CPT-13762 Level 3 Est. Patient 11:25:49 CDT Renzo Thornton DO [facility] CPT-81160 Level 3 Est. Patient 15:22:01 CDT Ahmet Carbajal MD [facility] CPT-83704 Level 4 Est. Patient 09:00:51 OYSTER FISHERMAN Vishal Hui MD [facility] CPT-92911 Level 3 Est. Patient 11:37:33 OYSTER FISHERMAN Vishal Hui MD [facility] CPT-68071 Level 3 Est. Patient 08:41:09 OYSTER FISHERMAN Vishal Hui MD [facility] CPT-34014 Level 4 Est. Patient 10:19:35 OYSTER FISHERMAN Vishal Hui MD [facility] CPT-05586 Level 3 Est. Patient 13:35:45 CDT Vishal Hui MD [facility] CPT-88444 Level 4 Est. Patient 10:08:37 CDT Vishal Hui MD [facility] CPT-69099 Level 3 Est. Patient 11:22:10 CDT Vishal Hui MD [facility] CPT-36800 Level 3 Est. Patient 11:03:32 CDT Sahara Rodriguez MD [facility]-08830 Level 3 Est. Patient 09:41:35 CDT Vishal Hui MD [facility] CPT-98640 Level 3 Est. Patient 12:00:41 CDT Neeraj Collins MD [facility] CPT-40097 Level 3 Est. Patient 09:16:24 CDT Vishal Hui MD [facility]-95773 Level 4 Est. Patient 13:59:09 CDT Neeraj Collins MD [facility]-73274 Level 3 Est. Patient 15:19:43 CDT Renzo Thornton DO [facility] CPT-29800 Level 3 Est. Patient 18:10:26 CDT Sahara Rodriguez MD [facility] CPT-36656 Level 3 Est. Patient 14:49:50 CDT Vishal Hui MD [facility]-26342 Level 4 Est. Patient 18:41:46 CDT Neeraj Collins MD [facility] CPT-65761 Level 4 Est. Patient 09:18:38 OYSTER FISHERMAN Vishal Hui MD [facility]-75398 Level 3 Est. Patient 14:43:55 OYSTER FISHERMAN Vishal Hui MD [facility] CPT-74246 Level 3 Est. Patient 15:26:33 OYSTER FISHERMAN Sahara Rodriguez MD [facility]-03175 Level 3 Est. Patient 10:32:14 OYSTER FISHERMAN Vishal Hui MD [facility] CPT-11963 Level 3 Est. Patient 15:12:52 OYSTER FISHERMAN Vishal Hui MD [facility]-38264 Level 4 Est. Patient 09:19:27 CDT Vishal Hui MD [facility] CPT-72594 Level 3 Est. Patient 15:53:00 CDT Renzo Thornton [facility] CPT-90983 Level 3 Est. Patient 15:50:30 CDT Renzo Thornton [facility] CPT-44507 Level 3 Est. Patient 16:55:24 CDT Vishal Hui MD [facility] Procedures Code Procedure Name Date Entry Date Standard Description CPT-43406 UA w micro - LAB USE ONLY 16:21:13 CDT CPT-20342 Wet Mount - LAB USE ONLY 16:21:13 CDT CPT-47017 First Vx - Ix admin for Medicare patients 14:37:47 CDT CPT-77427 Fluzone Preservative Free Intramuscular Suspension 14:37 :47 CDT CPT-44784 Abx/Therapy Injection 13:54:22 CDT CPT-56325 Abx/Therapy Injection 08:47:09 CDT CPT-09070 Abx/Therapy Injection 13:29:56 CDT CPT-39218 Abx/Therapy Injection 08:36:16 CDT CPT-95117 Wet Mount - LAB USE ONLY 17:44:58 CDT CPT-77678 UA w micro - LAB USE ONLY 17:44:58 CDT CPT-23060 CMP - LAB USE ONLY 17:44:58 CDT CPT-77994 Venipuncture Draw Fee 17:44:58 CDT CPT-02776 Cervical Min 4V - XRAY USE ONLY 09:01:40 CDT CPT-43444 Chest 2V Frontal and Lat - XRAY USE ONLY 11:06:31 CDT CPT-22622 EKG Trac and Interp - XRAY USE ONLY 11:31:43 CDT 08/26 CPT-J3420 Vitamin B12 1000mcg (Cyanocobalamin) 08:10:26 OYSTER FISHERMAN 04/12 CPT-78277 Abx/Therapy Injection 08:10:26 OYSTER FISHERMAN CPT-G0438 Initial Annual Wellness Exam 19:01:01 OYSTER FISHERMAN CPT-J3420 Vitamin B12 1000mcg (Cyanocobalamin) 16:57:46 CDT 08/14 CPT-79177 Recombivax HB Injection Suspension 5 MCG/0.5ML 08:37:50 OYSTER FISHERMAN CPT-71267 Immunization Single Admin 08:37:50 OYSTER FISHERMAN CPT-J3420 Vitamin B12 1000mcg (Cyanocobalamin) 08:32:16 OYSTER FISHERMAN 03/11 CPT-53315 Abx/Therapy Injection 08:32:16 [employer] CPT-78529 Chest 2V Frontal and Lat 11:46:38 [employer] CPT-57226 Venipuncture Draw Fee 09:12:45 [employer] CPT-J3420 Vitamin B12 1000mcg (Cyanocobalamin) 08:50:15 [employer] 02/08 CPT-23290 Abx/Therapy Injection 08:50:15 [employer] CPT-Cryo Cryotherapy 10:19:35 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 Give Appropriate Flu Vaccine 09:22:16 CDT CPT-J3420 Vitamin B12 1000mcg (Cyanocobalamin) 19:08:57 CDT 01/11 CPT-46401 Abx/Therapy Injection 19:08:57 CDT CPT-J3420 Vitamin B12 1000mcg (Cyanocobalamin) 08:19:08 CDT 12/11 CPT-33114 Abx/Therapy Injection 08:19:08 CDT CPT-J3420 Vitamin B12 1000mcg (Cyanocobalamin) 14:48:00 CDT 11/09 CPT-80908 Abx/Therapy Injection 14:47:59 CDT CPT-J3420 Vitamin B12 1000mcg (Cyanocobalamin) 08:34:04 CDT 10/09 CPT-61064 Abx/Therapy Injection 08:34:04 CDT CPT-J3420 Vitamin B12 1000mcg (Cyanocobalamin) 09:18:52 CDT 09/11 CPT-80338 Abx/Therapy Injection 09:18:52 CDT CPT-J3420 Vitamin B12 1000mcg (Cyanocobalamin) 08:35:44 CDT 09/04 CPT-76169 Abx/Therapy Injection 08:35:44 CDT CPT-86732 Immunization Single Admin 11:07:16 CDT CPT-20884 Hepatitis B adult IM 11:07:16 CDT CPT-J3420 Vitamin B12 1000mcg (Cyanocobalamin) 11:00:49 CDT 08/28 CPT-J1040 Depo Medrol 80 mg (Methyl Prednisolone Acetate) 11:00: 49 CDT CPT-95760 Abx/Therapy Injection 11:00:49 CDT CPT-J1040 Depo Medrol 80 mg (Methyl Prednisolone Acetate) 09:16: 23 CDT CPT-J3420 Vitamin B12 1000mcg (Cyanocobalamin) 08:27:05 CDT 08/20 CPT-64566 Abx/Therapy Injection 08:27:05 CDT CPT-65577 Recombivax HB Injection Suspension 5 MCG/0.5ML 10:00:41 CDT CPT-55094 Administration single or combination vaccine inc oral 10 :00:41 CDT CPT-67914 Sono transvag pelvis non OB uterus ovaries cervix 16:36: 57 CDT CPT-01249 LS spine comp w obliq 09:50:55 OYSTER FISHERMAN CPT-51273 Abd compl w upright 09:50:55 OYSTER FISHERMAN CPT-J1100 Decadron 4mg (Dexamethasone) 15:51:24 OYSTER FISHERMAN CPT-J1030 Depo Medrol 40 mg (Methyl Prednisolone Acetate) 15:51: 24 OYSTER FISHERMAN CPT-95576 Abx/Therapy Injection 15:51:24 OYSTER FISHERMAN CPT-J1100 Decadron 4mg (Dexamethasone) 15:26:33 OYSTER FISHERMAN CPT-J1030 Depo Medrol 40 mg (Methyl Prednisolone Acetate) 15:26: 33 OYSTER FISHERMAN CPT-27373 Sono retroperitoneal complete kidneys and bladder 17:15: 30 CDT CPT-69820 Abd compl w upright 16:09:25 CDT CPT-J1100 Decadron 8mg (Dexamethasone) 17:07:57 CDT CPT-04423 Abx/Therapy Injection 17:07:57 CDT CPT-J1100 Decadron 8mg (Dexamethasone) 16:55:24 CDT CPT-69612 Chest 2V Frontal and Lat 16:32:44 CDT
--- OUTSIDE RECORDS SUMMARY | 2016-11-04 13:22 | XMS REPORT | Clinical Summary ---
Author Author Admin, E Organization [facility] Address Unknown Phone Unavailable Allergies, Adverse Reactions, Alerts Allergy Name Reaction Description Start Date Severity Status Provider FANAPT heart palpitations Critical Active Vishal uHi MD SEROQUEL Critical Active Vishal Hui MD [...] every other day x 2 doses FLUCONAZOLE [id number] No Longer Active Sahara Rodriguez MD PhD Active MELATONIN 3 MG CAPS 2 po q hs MELATONIN 56089841641 No Longer Active Sahara Rodriguez MD PhD Active MULTIVITAMINS CAPS Take one by mouth daily MULTIPLE VITAMIN 55282602795 No Longer Active Sahara Rodriguez MD PhD Active BACTRIM DS 800-160 MG TAB 1 tab by mouth twice daily TRIMETHOPRIM-SULFAMETHOXAZOLE 44688663055 No Longer Active Sahara Rodriguez MD PhD Active [facility] PROBIOTIC ORAL CHEW 2 daily po PROBIOTIC PRODUCT 76427287306 No Longer Active Sahara Rodriguez MD PhD Active IBUPROFEN 600 MG TAB 1 po TID PRN IBUPROFEN 36924422360 Active Luigi Martínez PSYCHIATRIC RN Active BACTRIM DS 800-160 MG TABS 1 po BID x 7 days SULFAMETHOXAZOLE-TRIMETHOPRIM 11577887453 No Longer Active Vishal Hui MD Active CHANTIX STARTING MONTH EARNEST 0.5 MG X 11 & 1 MG X 42 TABS 0.5mg daily for 3 days , then 0.5mg BID for 4 days, then 1mg BID VARENICLINE TARTRATE 11653816312 No Longer Active TAMARA Gray Active METOPROLOL TARTRATE 50 MG TAB 1 po bid METOPROLOL TARTRATE 96536211909 Active Vishal Hui MD Active TRAZODONE HCL 100 MG TAB take 1 at bedtime TRAZODONE HCL 18831845101 Active Vishal Hui MD Active AMLODIPINE BESYLATE 5 MG TABS 1 tablet by mouth daily AMLODIPINE BESYLATE 22013875534 Active Vishal Hui MD Active VERAPAMIL HCL CR 120 MG TAB CR 1 po bid VERAPAMIL HCL 12646014464 No Longer Active Vishal Hui MD Active METOPROLOL SUCCINATE 50 MG TB24 1 tablet by mouth daily METOPROLOL SUCCINATE 30271975579 No Longer Active Vishal Hui MD Active TRAMADOL HCL 50 MG TABS 1-2 po TID PRN Pain TRAMADOL HCL 06646336326 Active Vishal Hui MD Active SAPHRIS 5 MG SUBL 1 po bid ASENAPINE MALEATE 45196107663 Active Vishal Hui MD Active SAPHRIS 10 MG SUBL 1 tab po bid ASENAPINE MALEATE 57431352141 No Longer Active Vishal Hui MD Active LISINOPRIL 20 MG TABS 1 tab po qd LISINOPRIL 66976368709 No Longer Active Vishal Hui MD Active BENADRYL 25 MG CAP 2 po tid prn anxiety DIPHENHYDRAMINE HCL 04762880861 Active Vishal Hui MD Active LATUDA 80 MG TABS Take one by mouth daily LURASIDONE HCL 70091550487 Active Vishal Hui MD Active LATUDA 20 MG TABS Take one by mouth daily LURASIDONE HCL 12474224423 No Longer Active Vishal Hui MD Active TRAZODONE HCL 50 MG TABS 1/2 tab po qd prn for anxiety TRAZODONE HCL 29723632597 No Longer Active Vishal Hui MD Active PIROXICAM 20 MG CAPS 1 cap po qd PRN Pain PIROXICAM 39770656591 Active Vishal Hui MD Active OMEPRAZOLE 20 MG TBEC 1 po q a.m. 30min prior to first food intake OMEPRAZOLE 32600528626 Active Vishal Hui MD Active RANITIDINE HCL 150 MG CAPS 1 twice a day RANITIDINE HCL 58730882551 Active Vishal Hui MD Active PROZAC 20 MG CAP Take one by mouth daily FLUOXETINE HCL 57507867171 Active Vishal Hui MD Active LINZESS 290 MCG CAPS Take one by mouth daily LINACLOTIDE 71093542795 Active Vishal Hui MD Active SAPHRIS 5 MG SUBL 1 tab po qd ASENAPINE MALEATE 48281246465 No Longer Active Vishal Hui MD Active ZALEPLON 10 MG CAPS 1 cap po every other night ZALEPLON 56924144644 No Longer Active Vishal Hui MD Active LYRICA 50 MG CAPS 1 tab po TID PREGABALIN 24095685301 No Longer Active Vishal Hui MD Active LORATADINE 10 MG TABS 1 tab po qd LORATADINE 95395588403 No Longer Active Vishal Hui MD Active VERAPAMIL HCL ER 180 MG CR-TABS 1 tab po bid VERAPAMIL HCL 80466808217 No Longer Active Vishal Hui MD Active MIRALAX POWD 1 capfull once daily POLYETHYLENE GLYCOL 3350 24526830024 No Longer Active Vishal Hui MD Active PREDNISONE 20 MG TABS 1 tab po qd PREDNISONE 40786979780 No Longer Active Renzo Thornton DO Active LEVOFLOXACIN 500 MG TABS 1 tab po qd LEVOFLOXACIN 20608195678 No Longer Active Renzo Thornton DO Active BUSPIRONE HCL 15 MG TABS 1 tab po TID BUSPIRONE HCL 18524695877 No Longer Active Renzo Thornton DO Active BENZTROPINE MESYLATE 1 MG TABS 1 tab po qd BENZTROPINE MESYLATE 03239162764 No Longer Active Renzo Thornton DO Active ATENOLOL 25 MG TABS 1 tab po qd ATENOLOL 08838300888 No Longer Active Renzo Thornton DO Active ESCITALOPRAM OXALATE 20 MG TABS 1 tab po qd ESCITALOPRAM OXALATE 17155817193 No Longer Active Renzo Thornton DO Active ADVAIR DISKUS 250-50 MCG/DOSE AEPB 1 puff BID FLUTICASONE-SALMETEROL 97860632500 No Longer Active Renzo Thornton DO Active PREDNISONE 20 MG TAB 2 tabs daily for 3 days, 1 tab daily for 3 days, 1/2 tab daily for 2 days PREDNISONE 42985725338 No Longer Active Vishal Hui MD Active CEFDINIR 300 MG CAPS by mouth twice a day CEFDINIR 11198876807 No Longer Active Vishal Hui MD Active LANSOPRAZOLE 30 MG CPDR 1 cap po qd LANSOPRAZOLE 79864714304 No Longer Active Vishal Hui MD Active TOPAMAX 25 MG TABS 1 tab po bid TOPIRAMATE 73444547835 Active Vishal Hui MD Active MINIPRESS 2 MG CAPS 1 cap po at night PRAZOSIN HCL 32581499735 Active Vishal Hui MD Active BACLOFEN 20 MG TABS 1 tab po tid BACLOFEN 88500801842 Active Vishal Hui MD Active ADVAIR DISKUS 250-50 MCG/DOSE AEPB 1 puff BID ADVAIR DISKUS 250-50 MCG/DOSE AEPB FLUTICASONE-SALMETEROL Inactive ESCITALOPRAM OXALATE 20 MG TABS 1 tab po qd ESCITALOPRAM OXALATE 20 MG TABS 080234 ESCITALOPRAM OXALATE Inactive ATENOLOL 25 MG TABS 1 tab po qd ATENOLOL 25 MG TABS 258130 ATENOLOL Inactive BENZTROPINE MESYLATE 1 MG TABS 1 tab po qd BENZTROPINE MESYLATE 1 MG TABS 029239 BENZTROPINE MESYLATE Inactive BUSPIRONE HCL 15 MG TABS 1 tab po TID BUSPIRONE HCL 15 MG TABS 390574 BUSPIRONE HCL Inactive LEVOFLOXACIN 500 MG TABS 1 tab po qd LEVOFLOXACIN 500 MG TABS 268878 LEVOFLOXACIN Inactive PREDNISONE 20 MG TABS 1 tab po qd PREDNISONE 20 MG TABS 879224 PREDNISONE Inactive MIRALAX POWD 1 capfull once daily MIRALAX POWD 842213 POLYETHYLENE GLYCOL 3350 Inactive VERAPAMIL HCL ER 180 MG CR-TABS 1 tab po bid VERAPAMIL HCL ER 180 MG CR-TABS VERAPAMIL HCL Inactive LORATADINE 10 MG TABS 1 tab po qd LORATADINE 10 MG TABS 961672 LORATADINE Inactive LYRICA 50 MG CAPS 1 tab po TID LYRICA 50 MG CAPS PREGABALIN Inactive ZALEPLON 10 MG CAPS 1 cap po every other night ZALEPLON 10 MG CAPS 594874 ZALEPLON Inactive SAPHRIS 5 MG SUBL 1 tab po qd SAPHRIS 5 MG SUBL ASENAPINE MALEATE Inactive TRAZODONE HCL 50 MG TABS 1/2 tab po qd prn for anxiety TRAZODONE HCL 50 MG TABS 350447 TRAZODONE HCL Inactive LATUDA 20 MG TABS Take one by mouth daily LATUDA 20 MG TABS LURASIDONE HCL Inactive LISINOPRIL 20 MG TABS 1 tab po qd LISINOPRIL 20 MG TABS 203163 LISINOPRIL Inactive SAPHRIS 10 MG SUBL 1 [...] po q hs MELATONIN 3 MG CAPS 499207 MELATONIN Inactive CEFDINIR 300 MG CAPS by mouth twice a day CEFDINIR 300 MG CAPS 440185 CEFDINIR Inactive PREDNISONE 20 MG TAB 2 tabs daily for 3 days, 1 tab daily for 3 days, 1/2 tab daily for 2 days PREDNISONE 20 MG TAB 350287 PREDNISONE Inactive BACTRIM DS 800-160 MG TABS 1 po BID x 7 days BACTRIM DS 800-160 MG TABS SULFAMETHOXAZOLE-TRIMETHOPRIM Inactive DIFLUCAN 150 MG TABS 1 pill every other day x 2 doses DIFLUCAN 150 MG TABS 518626 FLUCONAZOLE Inactive Vital Signs Date Name Value [...] Panel - Chemistry sodium, serum 141 mmol/L 415-049 9143 potassium, serum 4.3 mmol/L 3.5-5.2 chloride, serum [...] Panel - Chemistry sodium, serum 139 mmol/L 502-155 2139/12/31 potassium, serum 4.8 mmol/L 3.5-5.2 chloride, serum 106 mmol/L 98-107 carbon dioxide, venous blood 24.3 mmol/L 21.0-32.0 blood glucose 90 mg/dL 65-110 urea nitrogen, blood 16 mg/dL 7-18 creatinine, serum 1.00 mg/dL 0.60-1.30 alanine aminotransferase (SGPT), serum 41 U/L aspartate aminotransferase (SGOT), serum 17 U/L 15-37 calcium, serum 8.6 mg/dL 8.5-10.1 bilirubin, serum, total 0.30 mg/dL 0.00-1.00 cholesterol, serum 108 mg/dL 483-731 1136/12/31 triglyceride, serum, fasting 120 mg/dL 30-200 HDL cholesterol, serum 28 mg/dL 32-96 LDL cholesterol, serum 56 mg/dL 0-130 Lab Report: MICROALBUMIN - Chemistry albumin/creatinine ratio, urine < 30 mg/g mg/g{creat} 0-29 Lab Report: MICROALBUMIN - Lab microalbumin, urine 10 0-19 Lab Report: UADIP W/MICRO, AUTO, [facility] [place] - Chemistry protein, total urine random Negative mg/dL Negative human chorionic gonadotropin, urine, qualitative (urine test) Negative Negative RBC, urine, dipstick Negative Negative Lab Report: UADIP W/MICRO, AUTO, [facility] [place] - Urinalysis urobilinogen, urine, semiquantitative (dipstick) 0.2 Normal leukocyte esterase, urine, by dipstick Negative Negative nitrite, urine, semiquantitative Negative Negative glucose, urine, semiquantitative Negative Negative ketones, urine, by test strip Negative Negative bilirubin, urine Negative Negative urine color Yellow Colorless;Lightyellow;Straw;Yellow appearance, urine Clear Clear specific gravity, urine 1.025 1.000-1.030 pH, urine, semiquantitative 7.0 5.0-8.5 Lab Report: Varicella-Zoater Inga IgG,IgM/86921, HEP Be Antibody/556, RUB ... - Serology rubella antibody, serum, IgG 2.88 Encounters Code Encounter Date Provider Facility CPT-23895 Level 3 Est. Patient 18:10:26 CDT Sahara Rodriguez MD PhD [facility] CPT-45900 Level 3 Est. Patient 14:49:50 CDT Vishal Hui MD [facility] CPT-12559 Level 4 Est. Patient 18:41:46 CDT Neeraj Collins MD [facility] CPT-55601 Level 4 Est. Patient 09:18:38 [employer] Vishal Hui MD [facility] CPT-79237 Level 3 Est. Patient 14:43:55 [employer] Vishal Hui MD [facility] CPT-35978 Level 3 Est. Patient 15:26:33 [employer] Sahara Rodriguez MD [facility] CPT-92534 Level 3 Est. Patient 10:32:14 [employer] Vishal Hui MD [facility] CPT-03893 Level 3 Est. Patient 15:12:52 [employer] Vishal Hui MD [facility] CPT-68465 Level 4 Est. Patient 09:19:27 CDT Vishal Hui MD [facility] CPT-37470 Level 3 Est. Patient 15:53:00 CDT Renzo Thornton [facility] CPT-63744 Level 3 Est. Patient 15:50:30 CDT Renzo Thornton [facility] CPT-73860 Level 3 Est. Patient 16:55:24 CDT Vishal Hui MD [facility] Procedures Code Procedure Name Date Entry Date Standard Description CPT-43351 Recombivax HB Injection Suspension 5 MCG/0.5ML 10:00:41 CDT CPT-59163 Administration single or combination vaccine inc oral 10 :00:41 CDT CPT-74847 Sono transvag pelvis non OB uterus ovaries cervix 16:36: 57 CDT CPT-50147 LS spine comp w obliq 09:50:55 [employer] CPT-44209 Abd compl w upright 09:50:55 [employer] CPT-J1100 Decadron 4mg (Dexamethasone) 15:51:24 [employer] CPT-J1030 Depo Medrol 40 mg (Methyl Prednisolone Acetate) 15:51: 24 [employer] CPT-09389 Abx/Therapy Injection 15:51:24 [employer] CPT-J1100 Decadron 4mg (Dexamethasone) 15:26:33 [employer] CPT-J1030 Depo Medrol 40 mg (Methyl Prednisolone Acetate) 15:26: 33 [employer] CPT-73307 Sono retroperitoneal complete kidneys and bladder 17:15: 30 CDT CPT-21302 Abd compl w upright 16:09:25 CDT CPT-J1100 Decadron 8mg (Dexamethasone) 17:07:57 CDT CPT-75347 Abx/Therapy Injection 17:07:57 CDT CPT-J1100 Decadron 8mg (Dexamethasone) 16:55:24 CDT CPT-57666 Chest 2V Frontal and Lat 16:32:44 CDT
--- OUTSIDE RECORDS SUMMARY | 2016-11-04 13:25 | XMS REPORT | Clinical Summary ---
Author Author Admin, E Organization [facility] Address Unknown Phone Unavailable Allergies, Adverse [...] care facility Sinus tachycardia 427.89 Active Vishal Hiu MD Other specified cardiac dysrhythmias Schizoaffective disorder [...] MD Other abnormal glucose Polyarthralgia 719.49 Active iVshal Hui MD Pain in joint involving multiple [...] Nocturnal hypoxia 799.02 Active Fabiola Johnson [employer]AD[employer] Hypoxemia Neck pain 723.1 Resolved Vishal Hui [...] Jim Hui MD Hot flashes ICD-627.2 Jim Hiu MD Personality change ICD-301.9 Inactive Vishal Hui [...] times daily as needed for cough BENZONATATE 53977059720 No Longer Active Luigi Martínez [employer]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 May repeat dose x 1 in 2 hours if needed SUMATRIPTAN SUCCINATE 57843819716 Active Vishal Hui MD Active OXYCODONE HCL ER 10 MG ORAL T12A 1/2 tab by mouth every 4 hours prn OXYCODONE HCL 93926850898 Active Neeraj Collins MD Active METHYLPREDNISOLONE 4 MG ORAL TABS po daily METHYLPREDNISOLONE 02150266794 Active Vishal Hui MD Active LEVOFLOXACIN 500 MG ORAL TABS po daily LEVOFLOXACIN 08613138546 Active Vishal Hui MD Active CHANTIX STARTING MONTH EARNEST 0.5 MG X 11 & 1 MG X 42 TABS take as directed 2015 VARENICLINE TARTRATE 22809878481 Active Ahmet Carbajal MD Active CHANTIX 1 MG TABS 1 twice a day to help quit smoking VARENICLINE TARTRATE 55885089087 Active Ahmet Carbajal MD Active HYDROCODONE-ACETAMINOPHEN 5-325 MG TABS 1 to 2 four times a day as needed for pain use until can be seen by specialist HYDROCODONE- ACETAMINOPHEN 46692220908 No Longer Active Vishal Hui MD Active PROAIR HFA 108 (90 BASE) MCG/ACT AERS 2 puffs four times a day as needed 2015 ALBUTEROL SULFATE 25642198997 No Longer Active Vishal Hui MD Active PREDNISONE 20 MG TABS 2 daily for 5 days then 1 daily for 5 days PREDNISONE 61349474846 No Longer Active Vishal Hui MD Active ZITHROMAX Z-EARNEST 250 MG TABS 2 today and then 1 daily for 4 days AZITHROMYCIN 51680921794 No Longer Active Vishal Hui MD Active DICLOFENAC SODIUM 50 MG TBEC 1 tablet by mouth four times daily PRN Pain 2015 DICLOFENAC SODIUM 70410888111 Active Vishal Hui MD Active DICLOFENAC POTASSIUM TABS Take 1 tablet twice a day (pt. is not sure of the dose.) DICLOFENAC POTASSIUM TABS 18597616302 No Longer Active Vishal Hui MD Active VERAPAMIL HCL ER 120 MG ORAL CR-TABS Take 1 tablet by mouth twice a day. VERAPAMIL HCL 21131347427 Active Vishal Hui MD Active FLAGYL 500 MG TAB 1 tablet by mouth bid METRONIDAZOLE 99775547433 No Longer Active Vishal Hui MD Active FLUTICASONE PROPIONATE 50 MCG/ACT SUSP 2 sprays each nostril daily before bed. FLUTICASONE PROPIONATE 13647792447 Active Fabiola Johnson APRN Active ADZENYS XR-ODT 6.3 MG ORAL TBED 1 tab po daily for ADHD AMPHETAMINE 69370343563 Active Fabiola Johnson APRN Active BENADRYL 25 MG CAP 4 po at bedtime for insomnia DIPHENHYDRAMINE HCL 04569354904 Active Fabiola Johnson APRN Active KLONOPIN 1 MG ORAL TABS 1 tab po TID CLONAZEPAM 37932668798 Active Fabiola Johnson APRN Active VALIUM 5 MG TAB Take 1-2 tablets daily DIAZEPAM 23981429822 No Longer Active Fabiola Johnson APRN Active METOPROLOL TARTRATE 25 MG ORAL TABS 1/2 tablet twice daily for heart rate and blood pressure METOPROLOL TARTRATE 94627945932 No Longer Active Fabiola Johnson APRN Active MIRALAX ORAL POWD 17GMS DAILY IN WATER POLYETHYLENE GLYCOL 3350 34013720003 Active Vishal Hui MD Active VIIBRYD 10 MG ORAL TABS Take 1 tablet once a day VILAZODONE HCL 35280469923 Active Ahmet Carbajal MD Active MIRALAX PACK 1 po qd PRN Constipation POLYETHYLENE GLYCOL 3350 08839222531 No Longer Active Ahmet Carbajal MD Active MINIPRESS 2 MG CAPS 4 cap po at night PRAZOSIN HCL 19505810199 No Longer Active Ahmet Carbajal MD Active PIROXICAM 20 MG CAPS 1 cap po qd PRN Pain PIROXICAM 00365907643 No Longer Active Ahmet Carbajal MD Active TRAMADOL HCL 50 MG TABS 1-2 po TID PRN Pain TRAMADOL HCL 52646924268 No Longer Active Ahmet Carbajal MD Active METOPROLOL TARTRATE 50 MG TAB 1 po bid METOPROLOL TARTRATE 42956005075 No Longer Active Ahmet Carbajal MD Active ABILIFY 15 MG ORAL TABS 1 tab daily ARIPIPRAZOLE 08141066485 No Longer Active Ahmet Carbajal MD Active PROZAC 20 MG ORAL CAPS 1 tab daily FLUOXETINE HCL 41675179111 No Longer Active Ahmet Carbajal MD Active AMBIEN 5 MG ORAL TABS 1 tab at bedtime ZOLPIDEM TARTRATE 43244426738 No Longer Active Ahmet Carbajal MD Active PREDNISONE 20 MG TAB 2 tabs daily for 4 days, 1 tab daily for 4 days, 1/2 tab daily for 4 days PREDNISONE 78526929336 No Longer Active Ahmet Carbajal MD Active KEFLEX 500 MG CAP 1 po TID x 10 days CEPHALEXIN 19179975326 No Longer Active Vishal Hui MD Active TOPAMAX 50 MG ORAL TABS 1 tab twice daily TOPIRAMATE 08668591495 Active Vishal Hui MD Active SAPHRIS 5 MG SUBL 1 po bid ASENAPINE MALEATE 21022244019 No Longer Active Luigi Martínez APRN Active LATUDA 80 MG TABS Take one by mouth daily LURASIDONE HCL 83642782857 No Longer Active Luigi Martínez APRN Active AMLODIPINE BESYLATE 5 MG TABS 1 tablet by mouth daily AMLODIPINE BESYLATE 73615496356 No Longer Active Luigi Martínez APRN Active AMITRIPTYLINE HCL 100 MG TAB one at hs AMITRIPTYLINE HCL 31826173051 No Longer Active Vishal Hui MD Active TRAZODONE HCL 100 MG TAB take 1 at bedtime TRAZODONE HCL 82320661974 No Longer Active Vishal Hui MD Active VYVANSE 40 MG CAPS 1 daily, LISDEXAMFETAMINE DIMESYLATE 61504247464 No Longer Active Vishal Hui MD Active IBUPROFEN 600 MG TAB 1 po TID PRN IBUPROFEN 96932382703 No Longer Active Vishal Hui MD Active PROZAC 20 MG CAP Take one by mouth daily FLUOXETINE HCL 84724284259 No Longer Active Vishal Hui MD Active ZOFRAN 4 MG TABS 1 po q6hr PRN Nausea ONDANSETRON HCL Active Vishal Hui MD Active BACTRIM DS 800-160 MG TABS 1 pill by mouth twice daily SULFAMETHOXAZOLE-TRIMETHOPRIM 43683963398 No Longer Active Sahara Rodriguez MD PhD Active DIFLUCAN 150 MG TAB 1 tablet by mouth daily FLUCONAZOLE 89779626451 No Longer Active Vishal Hui MD Active TIZANIDINE HCL 4 MG TABS 1 po q6hr PRN Muscle Spasm/Back Pain TIZANIDINE HCL 51388327954 Active Vishal Hui MD Active CLINDAMYCIN HCL 150 MG CAPS 1 four times a day CLINDAMYCIN HCL 71476640371 No Longer Active Neeraj Collins MD Active KEFLEX 500 MG ORAL CAPS 1 cap QID by mouth CEPHALEXIN 29463852784 No Longer Active Neeraj Collins MD Active DIFLUCAN 150 MG TABS 1 pill every other day x 2 doses FLUCONAZOLE 57196945411 No Longer Active Sahara Rodriguez MD PhD Active MELATONIN 3 MG CAPS 2 po q hs MELATONIN 91508537645 No Longer Active Sahara Rodriguez MD PhD Active MULTIVITAMINS CAPS Take one by mouth daily MULTIPLE VITAMIN 12645341905 No Longer Active Sahara Rodriguez MD PhD Active BACTRIM DS 800-160 MG TAB 1 tab by mouth twice daily TRIMETHOPRIM-SULFAMETHOXAZOLE 69175220303 No Longer Active Sahara Rodriguez MD PhD Active [facility] PROBIOTIC ORAL CHEW 2 daily po PROBIOTIC PRODUCT 73572116938 No Longer Active Sahara Rodriguez MD PhD Active BACTRIM DS 800-160 MG TABS 1 po BID x 7 days SULFAMETHOXAZOLE-TRIMETHOPRIM 49399337256 No Longer Active Vishal Hui MD Active CHANTIX STARTING MONTH EARNEST 0.5 MG X 11 & 1 MG X 42 TABS 0.5mg daily for 3 days , then 0.5mg BID for 4 days, then 1mg BID VARENICLINE TARTRATE 00216163588 No Longer Active TAMARA Gray Active VERAPAMIL HCL CR 120 MG TAB CR 1 po bid VERAPAMIL HCL 37710943313 No Longer Active Vishal Hui MD Active METOPROLOL SUCCINATE 50 MG TB24 1 tablet by mouth daily METOPROLOL SUCCINATE 79239338072 No Longer Active Vishal Hui MD Active SAPHRIS 10 MG SUBL 1 tab po bid ASENAPINE MALEATE 85062152046 No Longer Active Vishal Hui MD Active LISINOPRIL 20 MG TABS 1 tab po qd LISINOPRIL 34983374726 No Longer Active Vishal Hui MD Active LATUDA 20 MG TABS Take one by mouth daily LURASIDONE HCL 08408112914 No Longer Active Vishal Hui MD Active TRAZODONE HCL 50 MG TABS 1/2 tab po qd prn for anxiety TRAZODONE HCL 34049504118 No Longer Active Vishal Hui MD Active OMEPRAZOLE 20 MG TBEC 1 po q a.m. 30min prior to first food intake OMEPRAZOLE 39543982753 Active Vishal Hui MD Active RANITIDINE HCL 150 MG CAPS 1 twice a day RANITIDINE HCL 94810770534 Active Luigi Martínez APRN Active LINZESS 290 MCG CAPS Take one by mouth daily LINACLOTIDE 71332508503 No Longer Active Vsihal Hui MD Active SAPHRIS 5 MG SUBL 1 tab po qd ASENAPINE MALEATE 36611660453 No Longer Active Vishal Hui MD Active ZALEPLON 10 MG CAPS 1 cap po every other night ZALEPLON 27922100478 No Longer Active Vishal Hui MD Active LYRICA 50 MG CAPS 1 tab po TID PREGABALIN 20632784544 No Longer Active Vishal Hui MD Active LORATADINE 10 MG TABS 1 tab po qd LORATADINE 88812167927 No Longer Active Vishal Hui MD Active VERAPAMIL HCL ER 180 MG CR-TABS 1 tab po bid VERAPAMIL HCL 37824030622 No Longer Active Vishal Hui MD Active MIRALAX POWD 1 capfull once daily POLYETHYLENE GLYCOL 3350 26285664258 No Longer Active Vishal Hui MD Active PREDNISONE 20 MG TABS 1 tab po qd PREDNISONE 74876258949 No Longer Active Renzo Thornton DO Active LEVOFLOXACIN 500 MG TABS 1 tab po qd LEVOFLOXACIN 50625293518 No Longer Active Renzo Thornton DO Active BUSPIRONE HCL 15 MG TABS 1 tab po TID BUSPIRONE HCL 07396484379 No Longer Active Renzo Thornton DO Active BENZTROPINE MESYLATE 1 MG TABS 1 tab po qd BENZTROPINE MESYLATE 83382051995 No Longer Active Renzo Thornton DO Active ATENOLOL 25 MG TABS 1 tab po qd ATENOLOL 06228770169 No Longer Active Renzo Thornton DO Active ESCITALOPRAM OXALATE 20 MG TABS 1 tab po qd ESCITALOPRAM OXALATE 16994674501 No Longer Active Renzo Thornton DO Active ADVAIR DISKUS 250-50 MCG/DOSE AEPB 1 puff BID FLUTICASONE-SALMETEROL 10947265193 No Longer Active Renzo Thornton DO Active PREDNISONE 20 MG TAB 2 tabs daily for 3 days, 1 tab daily for 3 days, 1/2 tab daily for 2 days PREDNISONE 52808421424 No Longer Active Vishal Hui MD Active CEFDINIR 300 MG CAPS by mouth twice a day CEFDINIR 42728181438 No Longer Active Vishal Hui MD Active LANSOPRAZOLE 30 MG CPDR 1 cap po qd LANSOPRAZOLE 06579234323 No Longer Active Vishal Hui MD Active BACLOFEN 20 MG TABS 1 tab po tid BACLOFEN 33071524219 No Longer Active Vishal Hui MD Active ADVAIR DISKUS 250-50 MCG/DOSE AEPB 1 puff BID ADVAIR DISKUS 250-50 MCG/DOSE AEPB FLUTICASONE-SALMETEROL Inactive ESCITALOPRAM OXALATE 20 MG TABS 1 tab po qd ESCITALOPRAM OXALATE 20 MG TABS 076897 ESCITALOPRAM OXALATE Inactive ATENOLOL 25 MG TABS 1 tab po qd ATENOLOL 25 MG TABS 695215 ATENOLOL Inactive BENZTROPINE MESYLATE 1 MG TABS 1 tab po qd BENZTROPINE MESYLATE 1 MG TABS 070674 BENZTROPINE MESYLATE Inactive BUSPIRONE HCL 15 MG TABS 1 tab po TID BUSPIRONE HCL 15 MG TABS 659982 BUSPIRONE HCL Inactive LEVOFLOXACIN 500 MG TABS 1 tab po qd LEVOFLOXACIN 500 MG TABS 006430 LEVOFLOXACIN Inactive PREDNISONE 20 MG TABS 1 tab po qd PREDNISONE 20 MG TABS 924315 PREDNISONE Inactive MIRALAX POWD 1 capfull once daily MIRALAX POWD 397496 POLYETHYLENE GLYCOL 3350 Inactive VERAPAMIL HCL ER 180 MG CR-TABS 1 tab po bid VERAPAMIL HCL ER 180 MG CR-TABS VERAPAMIL HCL Inactive LORATADINE 10 MG TABS 1 tab po qd LORATADINE 10 MG TABS 242274 LORATADINE Inactive LYRICA 50 MG CAPS 1 tab po TID LYRICA 50 MG CAPS PREGABALIN Inactive ZALEPLON 10 MG CAPS 1 cap po every other night ZALEPLON 10 MG CAPS 941861 ZALEPLON Inactive SAPHRIS 5 MG SUBL 1 tab po qd SAPHRIS 5 MG SUBL ASENAPINE MALEATE Inactive TRAZODONE HCL 50 MG TABS 1/2 tab po qd prn for anxiety TRAZODONE HCL 50 MG TABS 153087 TRAZODONE HCL Inactive LATUDA 20 MG TABS Take one by mouth daily LATUDA 20 MG TABS LURASIDONE HCL Inactive LISINOPRIL 20 MG TABS 1 tab po qd LISINOPRIL 20 MG TABS 079419 LISINOPRIL Inactive SAPHRIS 10 MG SUBL 1 [...] twice daily BACTRIM DS 800-160 MG TAB 744786 TRIMETHOPRIM-SULFAMETHOXAZOLE Inactive MULTIVITAMINS CAPS Take one by mouth daily MULTIVITAMINS CAPS MULTIPLE VITAMIN Inactive MELATONIN 3 MG CAPS 2 po q hs MELATONIN 3 MG CAPS 131863 MELATONIN Inactive KEFLEX 500 MG ORAL CAPS 1 cap QID by mouth KEFLEX 500 MG ORAL CAPS 966936 CEPHALEXIN Inactive CLINDAMYCIN HCL 150 MG CAPS 1 four times a day CLINDAMYCIN HCL 150 MG CAPS 097579 CLINDAMYCIN HCL Inactive DIFLUCAN 150 MG TAB 1 tablet by mouth daily DIFLUCAN 150 MG TAB 283580 FLUCONAZOLE Inactive PROZAC 20 MG CAP Take one by mouth daily PROZAC 20 MG CAP 903864 FLUOXETINE HCL Inactive IBUPROFEN 600 MG TAB 1 po TID PRN IBUPROFEN 600 MG TAB 826551 IBUPROFEN Inactive VYVANSE 40 MG CAPS 1 daily, VYVANSE 40 MG CAPS LISDEXAMFETAMINE DIMESYLATE Inactive TRAZODONE HCL 100 MG TAB take 1 at bedtime TRAZODONE HCL 100 MG TAB 901451 TRAZODONE HCL Inactive AMITRIPTYLINE HCL 100 MG TAB one at hs AMITRIPTYLINE HCL 100 MG TAB 190650 AMITRIPTYLINE HCL Inactive AMLODIPINE BESYLATE 5 MG TABS 1 tablet by mouth daily AMLODIPINE BESYLATE 5 MG TABS 167359 AMLODIPINE BESYLATE Inactive LATUDA 80 MG TABS Take one by mouth daily LATUDA 80 MG TABS LURASIDONE HCL Inactive SAPHRIS 5 MG SUBL 1 po bid SAPHRIS 5 MG SUBL ASENAPINE MALEATE Inactive PREDNISONE 20 MG TAB 2 tabs daily for 4 days, 1 tab daily for 4 days, 1/2 tab daily for 4 days PREDNISONE 20 MG TAB 566964 PREDNISONE Inactive AMBIEN 5 MG ORAL TABS 1 tab at bedtime AMBIEN 5 MG ORAL TABS 682083 ZOLPIDEM TARTRATE Inactive PROZAC 20 MG ORAL CAPS 1 tab daily PROZAC 20 MG ORAL CAPS 855692 FLUOXETINE HCL Inactive ABILIFY 15 MG ORAL TABS 1 tab daily ABILIFY 15 MG ORAL TABS 009566 ARIPIPRAZOLE Inactive METOPROLOL TARTRATE 50 MG TAB 1 po bid METOPROLOL TARTRATE 50 MG TAB 156420 METOPROLOL TARTRATE Inactive TRAMADOL HCL 50 MG TABS 1-2 po TID PRN Pain TRAMADOL HCL 50 MG TABS 410954 TRAMADOL HCL Inactive PIROXICAM 20 MG CAPS 1 cap po qd PRN Pain PIROXICAM 20 MG CAPS 486810 PIROXICAM Inactive MINIPRESS 2 MG CAPS 4 cap po at night MINIPRESS 2 MG CAPS 721474 PRAZOSIN HCL Inactive MIRALAX PACK 1 po qd PRN Constipation MIRALAX PACK 482962 POLYETHYLENE GLYCOL 3350 Inactive METOPROLOL TARTRATE 25 MG ORAL TABS 1/2 tablet twice daily for heart rate and blood pressure METOPROLOL TARTRATE 25 MG ORAL TABS 755994 METOPROLOL TARTRATE Inactive VALIUM 5 MG TAB Take 1-2 tablets daily VALIUM 5 MG TAB 693566 DIAZEPAM Inactive FLAGYL 500 MG TAB 1 tablet by mouth bid FLAGYL 500 MG TAB 443704 METRONIDAZOLE Inactive DICLOFENAC POTASSIUM TABS Take 1 tablet twice a day (pt. is not sure of the dose.) DICLOFENAC POTASSIUM TABS DICLOFENAC POTASSIUM TABS Inactive ZITHROMAX Z-EARNEST 250 MG TABS 2 today and then 1 daily for 4 days ZITHROMAX Z-EARNEST 250 MG TABS 2878103 AZITHROMYCIN Inactive PREDNISONE 20 MG TABS 2 daily for 5 days then 1 daily for 5 days PREDNISONE 20 MG TABS 098598 PREDNISONE Inactive PROAIR HFA 108 (90 BASE) MCG/ACT AERS 2 puffs four times a day as needed 2015 PROAIR HFA 108 (90 BASE) MCG/ACT AERS ALBUTEROL SULFATE Inactive HYDROCODONE-ACETAMINOPHEN 5-325 MG TABS 1 to 2 four times a day as needed for pain use until can be seen by specialist HYDROCODONE- ACETAMINOPHEN 5-325 MG TABS 412927 HYDROCODONE-ACETAMINOPHEN Inactive TESSALON PERLES 100 MG CAP 1 to 2 tablets by mouth 3 times daily as needed for cough TESSALON PERLES 100 MG CAP 662963 BENZONATATE Inactive CEFDINIR 300 MG CAPS by mouth twice a day CEFDINIR 300 MG CAPS 901488 CEFDINIR Inactive PREDNISONE 20 MG TAB 2 tabs daily for 3 days, 1 tab daily for 3 days, 1/2 tab daily for 2 days PREDNISONE 20 MG TAB 251620 PREDNISONE Inactive BACTRIM DS 800-160 MG TABS 1 po BID x 7 days BACTRIM DS 800-160 MG TABS 19820521 SULFAMETHOXAZOLE-TRIMETHOPRIM Inactive DIFLUCAN 150 MG TABS 1 pill every other day x 2 doses DIFLUCAN 150 MG TABS 775714 FLUCONAZOLE Inactive BACTRIM DS 800-160 MG TABS 1 pill by mouth twice daily BACTRIM DS 800-160 MG TABS 19820521 SULFAMETHOXAZOLE-TRIMETHOPRIM Inactive KEFLEX 500 MG CAP 1 po TID x 10 days KEFLEX 500 MG CAP 124837 CEPHALEXIN Inactive Advance Directives Directive Description Start [...] % 11.6-14.8 platelet count 394 10^3/MM^3 10*3/mm3 632-829 3594/01/11 leukocyte count, blood 13.8 10^3/MM^3 10*3/mm3 4.6-10.2 [...] Panel - Chemistry sodium, serum 139 mmol/L 235-051 2765/12/03 carbon dioxide, venous blood 28.5 mmol/L 21.0-32.0 [...] 5.5 % 4.3-6.0 cholesterol, serum 159 mg/dL 384-673 9918/12/03 triglyceride, serum, fasting 118 mg/dL 30-200 HDL [...] Panel - Chemistry sodium, serum 139 mmol/L 918-533 9352/12/22 carbon dioxide, venous blood 26.8 mmol/L 21.0-32.0 potassium, serum 4.2 mmol/L 3.5-5.2 chloride, serum 103 mmol/L 98-107 blood glucose 115 mg/dL 65-110 urea nitrogen, blood 20 mg/dL 7-18 creatinine, serum 0.90 mg/dL 0.55-1.30 alanine aminotransferase (SGPT), serum 38 U/L 12-78 aspartate aminotransferase (SGOT), serum 19 U/L 15-37 calcium, serum 8.6 mg/dL 8.5-10.1 bilirubin, serum, total 0.30 mg/dL 0.00-1.00 sodium, serum 139 mmol/L 543-444 3946/01/11 carbon dioxide, venous blood 26.6 mmol/L 21.0-32.0 potassium, serum 4.1 mmol/L 3.5-5.2 chloride, serum 100 mmol/L 98-107 blood glucose 86 mg/dL 65-110 urea nitrogen, blood 16 mg/dL 7-18 creatinine, serum 1.00 mg/dL 0.55-1.30 alanine aminotransferase (SGPT), serum 48 U/L 12-78 aspartate aminotransferase (SGOT), serum 17 U/L 15-37 calcium, serum 9.1 mg/dL 8.5-10.1 bilirubin, serum, total 0.40 mg/dL 0.00-1.00 sodium, serum 142 mmol/L 277-402 7791/06/08 carbon dioxide, venous blood 27.6 mmol/L 21.0-32.0 potassium, serum 4.0 mmol/L 3.5-5.2 chloride, serum 105 mmol/L 98-107 blood glucose 95 mg/dL 65-110 urea nitrogen, blood 8 mg/dL 7-18 creatinine, serum 0.75 mg/dL 0.55-1.30 alanine aminotransferase (SGPT), serum 49 U/L 12-78 aspartate aminotransferase (SGOT), serum 28 U/L 15-37 calcium, serum 9.4 mg/dL 8.5-10.1 bilirubin, serum, total 0.30 mg/dL 0.00-1.00 sodium, serum 140 mmol/L 535-406 4376/08/08 carbon dioxide, venous blood 33.7 mmol/L 21.0-32.0 [...] Rate - Chemistry sodium, serum 139 mmol/L 574-841 8934/12/11 carbon dioxide, venous blood 25.4 mmol/L 21.0-32.0 [...] mg/dL Encounters Code Encounter Date Provider Facility CPT-38427 Level 3 Est. Patient 13:59:59 CDT Luigi Martínez [facility] CPT-53231 Level 3 Est. Patient 18:18:53 CDT Neeraj Collins MD [facility] CPT-17911 Level 3 Est. Patient 15:50:44 CDT Vishal Hui MD [facility] CPT-66029 Level 3 Est. Patient 11:36:17 CDT Ahmet Carbajal MD [facility] CPT-35987 Level 3 Est. Patient 13:29:16 CDT Vishal Hui MD [facility] CPT-22797 Level 3 Est. Patient 14:27:52 CDT Neeraj Collins MD [facility] CPT-22455 Level 3 Est. Patient 08:56:03 CDT Luigi Martínez [facility] CPT-40986 Level 4 Est. Patient 12:11:48 CDT Fabiola Johnson [facility] CPT-98311 Level 3 New Patient 16:53:37 CDT Albert Caldera MD [facility] CPT-20170 Level 3 Est. Patient 11:25:49 CDT Renzo W Norberto [facility] CPT-36652 Level 3 Est. Patient 15:22:01 CDT Ahmet Carbajal MD [facility] CPT-97447 Level 4 Est. Patient 09:00:51 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 Vishal Hui MD [facility] CPT-21561 Level 3 Est. 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 Patient 13:35:45 CDT Vishal Hui MD [facility] CPT-66806 Level 4 Est. Patient 10:08:37 CDT Vishal Hui MD [facility] CPT-11420 Level 3 Est. Patient 11:22:10 CDT Vishal Hui MD [facility] CPT-12734 Level 3 Est. Patient 11:03:32 CDT Sahara Rodriguez MD PhD -[id number] Level 3 Est. Patient 09:41:35 CDT Vishal Hui MD [facility] CPT-71120 Level 3 Est. Patient 12:00:41 CDT Neeraj Collins MD [facility] CPT-06727 Level 3 Est. Patient 09:16:24 CDT Vishal Hui MD [facility] CPT-62148 Level 4 Est. Patient 13:59:09 CDT Neeraj Collins MD [facility]-23337 Level 3 Est. Patient 15:19:43 CDT Renzo Thornton DO [facility] CPT-86921 Level 3 Est. Patient 18:10:26 CDT Sahara Rodriguez MD PhD [facility] CPT-25058 Level 3 Est. Patient 14:49:50 CDT Vishal Hui MD [facility] CPT-54833 Level 4 Est. Patient 18:41:46 CDT Neeraj Collins MD [facility] CPT-96852 Level 4 Est. 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 Patient 09:19:27 CDT Vishal Hui MD [facility] CPT-47805 Level 3 Est. Patient 15:53:[address] [facility] CPT-30887 Level 3 Est. Patient 15:50:[address] [facility] CPT-22122 Level 3 Est. Patient 16:55:24 CDT Vishal Hui MD [facility] Procedures Code Procedure Name Date Entry Date Standard Description CPT-16469 First Vx - Ix admin for Medicare patients 14:37:47 CDT CPT-52909 Fluzone Preservative Free Intramuscular Suspension 14:37 :47 CDT CPT-23941 Abx/Therapy Injection 13:54:22 CDT CPT-92750 Abx/Therapy Injection 08:47:09 CDT CPT-57794 Abx/Therapy Injection 13:29:56 CDT CPT-38131 Abx/Therapy Injection 08:36:16 CDT CPT-44108 Wet Mount - LAB USE ONLY 17:44:58 CDT CPT-65673 UA w micro - LAB USE ONLY 17:44:58 CDT CPT-28670 CMP - LAB USE ONLY 17:44:58 CDT CPT-67636 Venipuncture Draw Fee 17:44:58 CDT CPT-37087 Cervical Min 4V - XRAY USE ONLY 09:01:40 CDT CPT-02455 Chest 2V Frontal and Lat - XRAY USE ONLY 11:06:31 CDT CPT-84154 EKG Trac and Interp - XRAY USE ONLY 11:31:43 CDT 08/26 CPT-J3420 Vitamin B12 1000mcg (Cyanocobalamin) 08:10:26 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 04/12 CPT-17498 Abx/Therapy Injection 08:10:26 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 CPT-G0438 Initial Annual Wellness Exam 19:01:01 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 CPT-J3420 Vitamin B12 1000mcg (Cyanocobalamin) 16:57:46 CDT 08/14 CPT-31923 Recombivax HB Injection Suspension 5 MCG/0.5ML 08:37:50 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 CPT-52857 Immunization Single Admin 08:37:50 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 CPT-J3420 Vitamin B12 1000mcg (Cyanocobalamin) 08:32:16 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 03/11 CPT-75418 Abx/Therapy Injection 08:32:16 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 CPT-95942 Chest 2V Frontal and Lat 11:46:38 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 CPT-45679 Venipuncture Draw Fee 09:12:45 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 CPT-J3420 Vitamin B12 1000mcg (Cyanocobalamin) 08:50:15 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 02/08 CPT-58680 Abx/Therapy Injection 08:50:15 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 CPT-Cryo Cryotherapy 10:19:35 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 CPT-000 Give Appropriate Flu Vaccine 09:22:16 CDT CPT-J3420 Vitamin B12 1000mcg (Cyanocobalamin) 19:08:57 CDT 01/11 CPT-35179 Abx/Therapy Injection 19:08:57 CDT CPT-J3420 Vitamin B12 1000mcg (Cyanocobalamin) 08:19:08 CDT 12/11 CPT-03693 Abx/Therapy Injection 08:19:08 CDT CPT-J3420 Vitamin B12 1000mcg (Cyanocobalamin) 14:48:00 CDT 11/09 CPT-77779 Abx/Therapy Injection 14:47:59 CDT CPT-J3420 Vitamin B12 1000mcg (Cyanocobalamin) 08:34:04 CDT 10/09 CPT-59234 Abx/Therapy Injection 08:34:04 CDT CPT-J3420 Vitamin B12 1000mcg (Cyanocobalamin) 09:18:52 CDT 09/11 CPT-54301 Abx/Therapy Injection 09:18:52 CDT CPT-J3420 Vitamin B12 1000mcg (Cyanocobalamin) 08:35:44 CDT 09/04 CPT-89207 Abx/Therapy Injection 08:35:44 CDT CPT-10392 Immunization Single Admin 11:07:16 CDT CPT-30253 Hepatitis B adult IM 11:07:16 CDT CPT-J3420 Vitamin B12 1000mcg (Cyanocobalamin) 11:00:49 CDT 08/28 CPT-J1040 Depo Medrol 80 mg (Methyl Prednisolone Acetate) 11:00: 49 CDT CPT-44900 Abx/Therapy Injection 11:00:49 CDT CPT-J1040 Depo Medrol 80 mg (Methyl Prednisolone Acetate) 09:16: 23 CDT CPT-J3420 Vitamin B12 1000mcg (Cyanocobalamin) 08:27:05 CDT 08/20 CPT-85972 Abx/Therapy Injection 08:27:05 CDT CPT-02824 Recombivax HB Injection Suspension 5 MCG/0.5ML 10:00:41 CDT CPT-41536 Administration single or combination vaccine inc oral 10 :00:41 CDT CPT-48823 Sono transvag pelvis non OB uterus ovaries cervix 16:36: 57 CDT CPT-92554 LS spine comp w obliq 09:50:55 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 CPT-42580 Abd compl w upright 09:50:55 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 CPT-J1100 Decadron 4mg (Dexamethasone) 15:51:24 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 CPT-J1030 Depo Medrol 40 mg (Methyl Prednisolone Acetate) 15:51: 24 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 CPT-47141 Abx/Therapy Injection 15:51:24 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 CPT-J1100 Decadron 4mg (Dexamethasone) 15:26:33 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 CPT-J1030 Depo Medrol 40 mg (Methyl Prednisolone Acetate) 15:26: 33 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 CPT-03802 Sono retroperitoneal complete kidneys and bladder 17:15: 30 CDT CPT-69720 Abd compl w upright 16:09:25 CDT CPT-J1100 Decadron 8mg (Dexamethasone) 17:07:57 CDT CPT-11458 Abx/Therapy Injection 17:07:57 CDT CPT-J1100 Decadron 8mg (Dexamethasone) 16:55:24 CDT CPT-75089 Chest 2V Frontal and Lat 16:32:44 CDT
--- OUTSIDE RECORDS SUMMARY | 2016-11-04 13:28 | XMS REPORT | Clinical Summary ---
Author Author Admin, E Organization [employer] Address Unknown Phone Unavailable Allergies, Adverse Reactions, [...] Active Ahmet Carbajal MD Generalized anxiety disorder Med Admin well woman exam V72.31 Active Suzan Boo [...] APRN Cervicalgia Preop exam V72.84 Active Suzan Rajeev COMPTOMETRIST Preoperative examination, unspecified Anxiety Disorder ICD-300.00 Inactive Vishal Hui MD Pneumonia, organism unspecified ICD-486 Inactive Vishal Hui MD Flank pain, right ICD-789.09 Inactive Vishal Hui MD G E R D ICD-530.81 Inactive Vishal Hui MD Health screening ICD-V70.0 Inactive Suzan Boo COMPTOMETRIST Sinus tachycardia ICD-427.89 Inactive Suzan Boo COMPTOMETRIST Smoker/tobacco use disorder-smoking cessation discussed ICD-305.1 Inactive [...] twice a day for 5 days TRIMETHOPRIM-SULFAMETHOXAZOLE 46733055565 Active Samantha MCDONALD Active MUPIROCIN 2 % OINT apply twice a day MUPIROCIN 52396084937 No Longer Active Suzan Boo APRN Active BACTRIM DS 800-160 MG TABS 1 twice a day SULFAMETHOXAZOLE-TRIMETHOPRIM 22419117207 No Longer Active Suzan Boo APRN Active DIFLUCAN 150 MG TABS 1 by mouth for yeast FLUCONAZOLE 51164600152 No Longer Active Suzan Boo APRN Active AMITIZA 8 MCG ORAL CAPS 1 capsule twice daily LUBIPROSTONE 01561638909 Active Sheila Calderon LPN Active LINZESS 290 MCG ORAL CAPS 1 tab 30 min prior to first meal each day. LINACLOTIDE 75992106696 No Longer Active Sheila Calderon LPN Active AMITIZA 8 MCG ORAL CAPS 1 tab BID LUBIPROSTONE 56893759463 No Longer Active Lynda Xiao LPN Active LACTULOSE 10 GM/15ML ORAL SOLN 30mL oral BID for IBS-C LACTULOSE 35969094605 Active Suzan Boo APRN Active TESSALON PERLES 100 MG CAPS 1 three times a day as needed for cough BENZONATATE 69091773983 No Longer Active Suzan Boo APRN Active BACTRIM DS 800-160 MG TABS 1 twice a day SULFAMETHOXAZOLE-TRIMETHOPRIM 93378013979 No Longer Active Suzan Boo APRN Active DIFLUCAN 150 MG TABS 1 by mouth for yeast FLUCONAZOLE 05753323027 No Longer Active Suzan Boo APRN Active EQ NICOTINE 21 MG/24HR TRANS PT24 Apply daily to stop smoking NICOTINE 37370162206 No Longer Active Suzan Boo APRN Active PREDNISONE 10 MG TABS 2 daily for 5 days then 1 daily for 5 days PREDNISONE 41316250795 No Longer Active Suzan Boo APRN Active LEVAQUIN 500 MG TABS 1 daily for infection LEVOFLOXACIN 81867275559 No Longer Active Suzan Boo APRN Active TROPICAMIDE 0.5 % OPHTH SOLN 1 drop PRN eye spasms TROPICAMIDE 31773327368 No Longer Active Suzan Boo APRN Active PREDNISONE 20 MG TAB 1 tablet daily x 4 days PREDNISONE 00212283512 No Longer Active Suzan Boo APRN Active ACETAMINOPHEN-CODEINE 120-12 MG/5ML SOLN 5 ml by mouth every 4-6 hours if needed for cough ACETAMINOPHEN-CODEINE 77203747904 No Longer Active Suzan Boo APRN Active KEFLEX 500 MG CAP 1 po qid CEPHALEXIN 50308304073 No Longer Active Suzan Boo APRN Active FLOVENT HFA 110 MCG/ACT AERO 2 puffs inhaled b.i.d. FLUTICASONE PROPIONATE HFA 66984031119 Active Renzo Thornton DO Active RISPERDAL 4 MG ORAL TABS 1 tab at bedtime RISPERIDONE 11338950661 Active Samantha MCDONALD Active ZOFRAN 4 MG TABS 1 po q6hr PRN Nausea ONDANSETRON HCL No Longer Active Suzan Boo APRN Active FLUTICASONE PROPIONATE 50 MCG/ACT SUSP 2 sprays each nostril daily before bed. FLUTICASONE PROPIONATE 25070673664 No Longer Active Suzan Boo APRN Active ASPIRIN 325 MG ORAL TABS 1 tab q.d ASPIRIN 72466270809 No Longer Active Suzan Boo APRN Active HALOPERIDOL 10 MG ORAL TABS 1 tab q.d HALOPERIDOL 76848136382 No Longer Active Suzan Boo APRN Active GUAIFENESIN-CODEINE 100-10 MG/5ML SYRP 5ml every 4 to 6 hours as needed for cough GUAIFENESIN-CODEINE 75983605569 No Longer Active Suzan Boo APRN Active ZITHROMAX Z-EARNEST 250 MG TABS 2 today and then 1 daily for 4 days AZITHROMYCIN 05828439173 No Longer Active Suzan Boo APRN Active CLONAZEPAM 1 MG ORAL TABS 1 twice a day and an additional 1 tablet every other day as needed for pseudoseizures or anxiety CLONAZEPAM 55879416739 Active Suzan Boo APRN Active HYDROCODONE-ACETAMINOPHEN 5-325 MG ORAL TABS 1 tab two times a day HYDROCODONE-ACETAMINOPHEN 32715948186 No Longer Active Ahmet Carbajal MD Active LAMICTAL 100 MG ORAL TABS 1 tab 2 times qd. LAMOTRIGINE 47553526956 Active Ahmet Carbajal MD Active PREDNISONE 20 MG TABS 2 daily for 5 days then 1 daily for 5 days PREDNISONE 92538758800 No Longer Active Ahmet Carbajal MD Active FLUTICASONE PROPIONATE 50 MCG/ACT SUSP 1 to 2 sprays each nostril daily for allergies FLUTICASONE PROPIONATE 99628640111 Active Tila Valenzuela Active BENADRYL 25 MG CAP 4 po at bedtime for insomnia DIPHENHYDRAMINE HCL 89467126410 No Longer Active Ahmet Carbajal MD Active ADVAIR DISKUS 250-50 MCG/DOSE INH AEPB 1 puff twice a day for asthma FLUTICASONE-SALMETEROL 41523842312 No Longer Active Ahmet Carbajal MD Active KLONOPIN 1 MG ORAL TABS 1 tab po TID CLONAZEPAM 60508220970 No Longer Active Ahmet Carbajal MD Active ABILIFY MAINTENA 400 MG IM SUSR 400mg injection every 26 days ARIPIPRAZOLE 93071237151 No Longer Active Ahmet Carbajal MD Active TRAMADOL HCL 50 MG TABS 1/2-1 tab TID PRN TRAMADOL HCL 03619190451 No Longer Active Ahmet Carbajal MD Active BACTRIM DS 800-160 MG TABS 1 twice a day SULFAMETHOXAZOLE- TRIMETHOPRIM 60382808382 No Longer Active Ahmet Carbajal MD Active PROAIR HFA 108 (90 BASE) MCG/ACT AERS 2 puffs four times a day as needed 2015 ALBUTEROL SULFATE 94907400774 Active Honey Hinton COMPTOMETRIST Active MONISTAT 7 COMBO PACK WOODROW 100 & 2 MG-% (9GM) VAG KIT 1 applicatorful per vagina q pm x 7 MICONAZOLE NITRATE 92852391622 No Longer Active Ahmet Carbajal MD Active FLAGYL 500 MG TAB 1 tablet by mouth bid METRONIDAZOLE 73259072156 No Longer Active Ahmet Carbajal MD Active OXYCODONE HCL ER 10 MG ORAL T12A 1/2 tab by mouth every 4 hours prn OXYCODONE HCL 88334913890 No Longer Active Ahmet Carbajal MD Active METHYLPREDNISOLONE 4 MG ORAL TABS po daily METHYLPREDNISOLONE 98562600312 No Longer Active Ahmet Carbajal MD Active LEVOFLOXACIN 500 MG ORAL TABS po daily LEVOFLOXACIN 65878132026 No Longer Active Ahmet Carbajal MD Active VIIBRYD 10 MG ORAL TABS Take 1 tablet once a day VILAZODONE HCL 31310114204 No Longer Active Ahmet Carbajal MD Active TOPAMAX 50 MG ORAL TABS 1 tab twice daily TOPIRAMATE 51307825339 No Longer Active Ahmet Carbajal MD Active DICLOFENAC SODIUM 50 MG TBEC 1 tablet by mouth four times daily PRN Pain 2015 DICLOFENAC SODIUM 67109918974 No Longer Active Ahmet Carbajal MD Active ADZENYS XR-ODT 6.3 MG ORAL TBED 1 tab po daily for ADHD AMPHETAMINE 13485106706 No Longer Active Ahmet Carbajal MD Active CHANTIX 1 MG TABS 1 twice a day to help quit smoking VARENICLINE TARTRATE 08026415167 No Longer Active Dipika Burgos MD Active CHANTIX STARTING MONTH EARNEST 0.5 MG X 11 & 1 MG X 42 TABS take as directed 2015 VARENICLINE TARTRATE 02423506431 No Longer Active Dipika Burgos MD Active TESSALON PERLES 100 MG CAP 1 to 2 tablets by mouth 3 times daily as needed for cough BENZONATATE 19492733043 No Longer Active Luigi Martínez APRN Active IMITREX 50 MG ORAL TABS 0.5 po x 1 PRN Headache. May repeat dose x 1 in 2 hours if needed SUMATRIPTAN SUCCINATE 27897272682 Active Ahmet Carbajal MD Active HYDROCODONE-ACETAMINOPHEN 5-325 MG TABS 1 to 2 four times a day as needed for pain use until can be seen by specialist HYDROCODONE- ACETAMINOPHEN 16472551780 No Longer Active Vishal Hui MD Active PROAIR HFA 108 (90 BASE) MCG/ACT AERS 2 puffs four times a day as needed 2015 ALBUTEROL SULFATE 56157946407 No Longer Active Vishal Hui MD Active PREDNISONE 20 MG TABS 2 daily for 5 days then 1 daily for 5 days PREDNISONE 61362504175 No Longer Active Vishal Hui MD Active ZITHROMAX Z-EARNEST 250 MG TABS 2 today and then 1 daily for 4 days AZITHROMYCIN 76457963207 No Longer Active Vishal Hui MD Active DICLOFENAC POTASSIUM TABS Take 1 tablet twice a day (pt. is not sure of the dose.) DICLOFENAC POTASSIUM TABS 75666418485 No Longer Active Vishal Hui MD Active VERAPAMIL HCL ER 120 MG ORAL CR-TABS Take 1 tablet by mouth twice a day. VERAPAMIL HCL 52130633767 Active Vishal Hui MD Active FLAGYL 500 MG TAB 1 tablet by mouth bid METRONIDAZOLE 37615807105 No Longer Active Vishal Hui MD Active VALIUM 5 MG TAB Take 1-2 tablets daily DIAZEPAM 32611717002 No Longer Active Fabiola Johnson APRN Active METOPROLOL TARTRATE 25 MG ORAL TABS 1/2 tablet twice daily for heart rate and blood pressure METOPROLOL TARTRATE 79545868378 No Longer Active Fabiola Johnson APRN Active MIRALAX ORAL POWD 17GMS DAILY IN WATER POLYETHYLENE GLYCOL 3350 62595351565 Active TAMARA Casey Active MIRALAX PACK 1 po qd PRN Constipation POLYETHYLENE GLYCOL 3350 21652079540 No Longer Active Ahmet Carbajal MD Active MINIPRESS 2 MG CAPS 4 cap po at night PRAZOSIN HCL 22325712927 No Longer Active Ahmet Carbajal MD Active PIROXICAM 20 MG CAPS 1 cap po qd PRN Pain PIROXICAM 01987081528 No Longer Active Ahmet Carbajal MD Active TRAMADOL HCL 50 MG TABS 1-2 po TID PRN Pain TRAMADOL HCL 78992818623 No Longer Active Ahmet Carbajal MD Active METOPROLOL TARTRATE 50 MG TAB 1 po bid METOPROLOL TARTRATE 55265198868 No Longer Active Ahmet Carbajal MD Active ABILIFY 15 MG ORAL TABS 1 tab daily ARIPIPRAZOLE 08832643762 No Longer Active Ahmet Carbajal MD Active PROZAC 20 MG ORAL CAPS 1 tab daily FLUOXETINE HCL 26391917999 No Longer Active Ahmet Carbajal MD Active AMBIEN 5 MG ORAL TABS 1 tab at bedtime ZOLPIDEM TARTRATE 95368077637 No Longer Active Ahmet Carbajal MD Active PREDNISONE 20 MG TAB 2 tabs daily for 4 days, 1 tab daily for 4 days, 1/2 tab daily for 4 days PREDNISONE 31533478265 No Longer Active Ahmet Carbajal MD Active KEFLEX 500 MG CAP 1 po TID x 10 days CEPHALEXIN 73485038270 No Longer Active Vishal Hui MD Active SAPHRIS 5 MG SUBL 1 po bid ASENAPINE MALEATE 10309441680 No Longer Active Luigi Martínez APRN Active LATUDA 80 MG TABS Take one by mouth daily LURASIDONE HCL 14609671543 No Longer Active Luigi Martínez APRN Active AMLODIPINE BESYLATE 5 MG TABS 1 tablet by mouth daily AMLODIPINE BESYLATE 36671575917 No Longer Active Luigi Martínez APRN Active AMITRIPTYLINE HCL 100 MG TAB one at hs AMITRIPTYLINE HCL 00616014738 No Longer Active Vishal Hui MD Active TRAZODONE HCL 100 MG TAB take 1 at bedtime TRAZODONE HCL 29970435221 No Longer Active Vishal Hui MD Active VYVANSE 40 MG CAPS 1 daily, LISDEXAMFETAMINE DIMESYLATE 85547869184 No Longer Active Vishal Hui MD Active IBUPROFEN 600 MG TAB 1 po TID PRN IBUPROFEN 07960035573 No Longer Active Vishal Hui MD Active PROZAC 20 MG CAP Take one by mouth daily FLUOXETINE HCL 25977994545 No Longer Active Vishal Hui MD Active BACTRIM DS 800-160 MG TABS 1 pill by mouth twice daily SULFAMETHOXAZOLE-TRIMETHOPRIM 59189450625 No Longer Active Sahara Rodriguez MD PhD Active DIFLUCAN 150 MG TAB 1 tablet by mouth daily FLUCONAZOLE 53286730870 No Longer Active Vishal Hui MD Active TIZANIDINE HCL 4 MG TABS 1 po q6hr PRN Muscle Spasm/Back Pain TIZANIDINE HCL 55965620867 Active TAMARA Casey Active CLINDAMYCIN HCL 150 MG CAPS 1 four times a day CLINDAMYCIN HCL 35917151174 No Longer Active Neeraj Collins MD Active KEFLEX 500 MG ORAL CAPS 1 cap QID by mouth CEPHALEXIN 01790648125 No Longer Active Neeraj Collins MD Active DIFLUCAN 150 MG TABS 1 pill every other day x 2 doses FLUCONAZOLE 09123419617 No Longer Active Sahara Rodriguez MD PhD Active MELATONIN 3 MG CAPS 2 po q hs MELATONIN 27779924809 No Longer Active Sahara Rodriguez MD PhD Active MULTIVITAMINS CAPS Take one by mouth daily MULTIPLE VITAMIN 69059808720 No Longer Active Sahara Rodriguez MD PhD Active BACTRIM DS 800-160 MG TAB 1 tab by mouth twice daily TRIMETHOPRIM-SULFAMETHOXAZOLE 89830865495 No Longer Active Sahara Rodriguez MD PhD Active [facility] PROBIOTIC ORAL CHEW 2 daily po PROBIOTIC PRODUCT 87220091335 No Longer Active Sahara Rodriguez MD PhD Active BACTRIM DS 800-160 MG TABS 1 po BID x 7 days SULFAMETHOXAZOLE-TRIMETHOPRIM 61727389934 No Longer Active Vishal Hui MD Active CHANTIX STARTING MONTH EARNEST 0.5 MG X 11 & 1 MG X 42 TABS 0.5mg daily for 3 days , then 0.5mg BID for 4 days, then 1mg BID VARENICLINE TARTRATE 50888195880 No Longer Active TAMARA Gray Active VERAPAMIL HCL CR 120 MG TAB CR 1 po bid VERAPAMIL HCL 75451852076 No Longer Active Vishal Hui MD Active METOPROLOL SUCCINATE 50 MG TB24 1 tablet by mouth daily METOPROLOL SUCCINATE 87272533203 No Longer Active Vishal Hui MD Active SAPHRIS 10 MG SUBL 1 tab po bid ASENAPINE MALEATE 25309271644 No Longer Active Vishal Hui MD Active LISINOPRIL 20 MG TABS 1 tab po qd LISINOPRIL 56318470719 No Longer Active Vishal Hui MD Active LATUDA 20 MG TABS Take one by mouth daily LURASIDONE HCL 85446156425 No Longer Active Vishal Hui MD Active TRAZODONE HCL 50 MG TABS 1/2 tab po qd prn for anxiety TRAZODONE HCL 65345314557 No Longer Active Vishal Hui MD Active OMEPRAZOLE 20 MG TBEC 1 po q a.m. 30min prior to first food intake OMEPRAZOLE 07987757290 Active TAMARA Casey Active RANITIDINE HCL 150 MG CAPS 1 twice a day RANITIDINE HCL 43212119060 Active Lynda Xiao MACHINE ZIPPER TRIMMER Active LINZESS 290 MCG CAPS Take one by mouth daily LINACLOTIDE 98100731103 No Longer Active Vishal Hui MD Active SAPHRIS 5 MG SUBL 1 tab po qd ASENAPINE MALEATE 48953551420 No Longer Active Vishal Hui MD Active ZALEPLON 10 MG CAPS 1 cap po every other night ZALEPLON 19861021925 No Longer Active Vishal Hui MD Active LYRICA 50 MG CAPS 1 tab po TID PREGABALIN 06839833228 No Longer Active Vishal Hui MD Active LORATADINE 10 MG TABS 1 tab po qd LORATADINE 62468797491 No Longer Active Visahl Hui MD Active VERAPAMIL HCL ER 180 MG CR-TABS 1 tab po bid VERAPAMIL HCL 21298364947 No Longer Active Vishal Hui MD Active MIRALAX POWD 1 capfull once daily POLYETHYLENE GLYCOL 3350 73825966059 No Longer Active Vishal Hui MD Active PREDNISONE 20 MG TABS 1 tab po qd PREDNISONE 89631423142 No Longer Active Renzo Thornton DO Active LEVOFLOXACIN 500 MG TABS 1 tab po qd LEVOFLOXACIN 83917390072 No Longer Active Renzo Thornton DO Active BUSPIRONE HCL 15 MG TABS 1 tab po TID BUSPIRONE HCL 36131516529 No Longer Active Renzo Thornton DO Active BENZTROPINE MESYLATE 1 MG TABS 1 tab po qd BENZTROPINE MESYLATE 59545942302 No Longer Active Renzo Thornton DO Active ATENOLOL 25 MG TABS 1 tab po qd ATENOLOL 83267682244 No Longer Active Renzo Thornton DO Active ESCITALOPRAM OXALATE 20 MG TABS 1 tab po qd ESCITALOPRAM OXALATE 21189555495 No Longer Active Renzo Thornton DO Active ADVAIR DISKUS 250-50 MCG/DOSE AEPB 1 puff BID FLUTICASONE-SALMETEROL 68915625194 No Longer Active Renzo Thornton DO Active PREDNISONE 20 MG TAB 2 tabs daily for 3 days, 1 tab daily for 3 days, 1/2 tab daily for 2 days PREDNISONE 16549216698 No Longer Active Vishal Hui MD Active CEFDINIR 300 MG CAPS by mouth twice a day CEFDINIR 16654941575 No Longer Active Vishal Hui MD Active LANSOPRAZOLE 30 MG CPDR 1 cap po qd LANSOPRAZOLE 63560761604 No Longer Active Vishal Hui MD Active BACLOFEN 20 MG TABS 1 tab po tid BACLOFEN 23598813719 No Longer Active Vishal Hui MD Active ADVAIR DISKUS 250-50 MCG/DOSE AEPB 1 puff BID ADVAIR DISKUS 250-50 MCG/DOSE AEPB FLUTICASONE-SALMETEROL Inactive ESCITALOPRAM OXALATE 20 MG TABS 1 tab po qd ESCITALOPRAM OXALATE 20 MG TABS 876444 ESCITALOPRAM OXALATE Inactive ATENOLOL 25 MG TABS 1 tab po qd ATENOLOL 25 MG TABS 799353 ATENOLOL Inactive BENZTROPINE MESYLATE 1 MG TABS 1 tab po qd BENZTROPINE MESYLATE 1 MG TABS 137094 BENZTROPINE MESYLATE Inactive BUSPIRONE HCL 15 MG TABS 1 tab po TID BUSPIRONE HCL 15 MG TABS 171852 BUSPIRONE HCL Inactive LEVOFLOXACIN 500 MG TABS 1 tab po qd LEVOFLOXACIN 500 MG TABS 472038 LEVOFLOXACIN Inactive PREDNISONE 20 MG TABS 1 tab po qd PREDNISONE 20 MG TABS 969052 PREDNISONE Inactive MIRALAX POWD 1 capfull once daily MIRALAX POWD 038748 POLYETHYLENE GLYCOL 3350 Inactive VERAPAMIL HCL ER 180 MG CR-TABS 1 tab po bid VERAPAMIL HCL ER 180 MG CR-TABS VERAPAMIL HCL Inactive LORATADINE 10 MG TABS 1 tab po qd LORATADINE 10 MG TABS 055598 LORATADINE Inactive LYRICA 50 MG CAPS 1 tab po TID LYRICA 50 MG CAPS PREGABALIN Inactive ZALEPLON 10 MG CAPS 1 cap po every other night ZALEPLON 10 MG CAPS 044195 ZALEPLON Inactive SAPHRIS 5 MG SUBL 1 tab po qd SAPHRIS 5 MG SUBL ASENAPINE MALEATE Inactive TRAZODONE HCL 50 MG TABS 1/2 tab po qd prn for anxiety TRAZODONE HCL 50 MG TABS 140622 TRAZODONE HCL Inactive LATUDA 20 MG TABS Take one by mouth daily LATUDA 20 MG TABS LURASIDONE HCL Inactive LISINOPRIL 20 MG TABS 1 tab po qd LISINOPRIL 20 MG TABS 189230 LISINOPRIL Inactive SAPHRIS 10 MG SUBL 1 [...] twice daily BACTRIM DS 800-160 MG TAB 348443 TRIMETHOPRIM-SULFAMETHOXAZOLE Inactive MULTIVITAMINS CAPS Take one by mouth daily MULTIVITAMINS CAPS MULTIPLE VITAMIN Inactive MELATONIN 3 MG CAPS 2 po q hs MELATONIN 3 MG CAPS 638566 MELATONIN Inactive KEFLEX 500 MG ORAL CAPS 1 cap QID by mouth KEFLEX 500 MG ORAL CAPS 195907 CEPHALEXIN Inactive CLINDAMYCIN HCL 150 MG CAPS 1 four times a day CLINDAMYCIN HCL 150 MG CAPS 049392 CLINDAMYCIN HCL Inactive DIFLUCAN 150 MG TAB 1 tablet by mouth daily DIFLUCAN 150 MG TAB 726332 FLUCONAZOLE Inactive PROZAC 20 MG CAP Take one by mouth daily PROZAC 20 MG CAP 632269 FLUOXETINE HCL Inactive IBUPROFEN 600 MG TAB 1 po TID PRN IBUPROFEN 600 MG TAB 615928 IBUPROFEN Inactive VYVANSE 40 MG CAPS 1 daily, VYVANSE 40 MG CAPS LISDEXAMFETAMINE DIMESYLATE Inactive TRAZODONE HCL 100 MG TAB take 1 at bedtime TRAZODONE HCL 100 MG TAB 138348 TRAZODONE HCL Inactive AMITRIPTYLINE HCL 100 MG TAB one at hs AMITRIPTYLINE HCL 100 MG TAB 513140 AMITRIPTYLINE HCL Inactive AMLODIPINE BESYLATE 5 MG TABS 1 tablet by mouth daily AMLODIPINE BESYLATE 5 MG TABS 949237 AMLODIPINE BESYLATE Inactive LATUDA 80 MG TABS Take one by mouth daily LATUDA 80 MG TABS LURASIDONE HCL Inactive SAPHRIS 5 MG SUBL 1 po bid SAPHRIS 5 MG SUBL ASENAPINE MALEATE Inactive PREDNISONE 20 MG TAB 2 tabs daily for 4 days, 1 tab daily for 4 days, 1/2 tab daily for 4 days PREDNISONE 20 MG TAB 431330 PREDNISONE Inactive AMBIEN 5 MG ORAL TABS 1 tab at bedtime AMBIEN 5 MG ORAL TABS 780565 ZOLPIDEM TARTRATE Inactive PROZAC 20 MG ORAL CAPS 1 tab daily PROZAC 20 MG ORAL CAPS 739734 FLUOXETINE HCL Inactive ABILIFY 15 MG ORAL TABS 1 tab daily ABILIFY 15 MG ORAL TABS 607711 ARIPIPRAZOLE Inactive METOPROLOL TARTRATE 50 MG TAB 1 po bid METOPROLOL TARTRATE 50 MG TAB 978957 METOPROLOL TARTRATE Inactive TRAMADOL HCL 50 MG TABS 1-2 po TID PRN Pain TRAMADOL HCL 50 MG TABS 965343 TRAMADOL HCL Inactive PIROXICAM 20 MG CAPS 1 cap po qd PRN Pain PIROXICAM 20 MG CAPS 657013 PIROXICAM Inactive MINIPRESS 2 MG CAPS 4 cap po at night MINIPRESS 2 MG CAPS 849979 PRAZOSIN HCL Inactive MIRALAX PACK 1 po qd PRN Constipation MIRALAX PACK 962166 POLYETHYLENE GLYCOL 3350 Inactive METOPROLOL TARTRATE 25 MG ORAL TABS 1/2 tablet twice daily for heart rate and blood pressure METOPROLOL TARTRATE 25 MG ORAL TABS 069985 METOPROLOL TARTRATE Inactive VALIUM 5 MG TAB Take 1-2 tablets daily VALIUM 5 MG TAB 239570 DIAZEPAM Inactive FLAGYL 500 MG TAB 1 tablet by mouth bid FLAGYL 500 MG TAB 044408 METRONIDAZOLE Inactive DICLOFENAC POTASSIUM TABS Take 1 tablet twice a day (pt. is not sure of the dose.) DICLOFENAC POTASSIUM TABS DICLOFENAC POTASSIUM TABS Inactive ZITHROMAX Z-EARNEST 250 MG TABS 2 today and then 1 daily for 4 days ZITHROMAX Z-EARNEST 250 MG TABS 8433239 AZITHROMYCIN Inactive PREDNISONE 20 MG TABS 2 daily for 5 days then 1 daily for 5 days PREDNISONE 20 MG TABS 886680 PREDNISONE Inactive PROAIR HFA 108 (90 BASE) MCG/ACT AERS 2 puffs four times a day as needed 2015 PROAIR HFA 108 (90 BASE) MCG/ACT AERS ALBUTEROL SULFATE Inactive HYDROCODONE-ACETAMINOPHEN 5-325 MG TABS 1 to 2 four times a day as needed for pain use until can be seen by specialist HYDROCODONE- ACETAMINOPHEN 5-325 MG TABS 030636 HYDROCODONE-ACETAMINOPHEN Inactive TESSALON PERLES 100 MG CAP 1 to 2 tablets by mouth 3 times daily as needed for cough TESSALON PERLES 100 MG CAP 207937 BENZONATATE Inactive CHANTIX STARTING MONTH EARNEST 0.5 [...] Pain 2015 DICLOFENAC SODIUM 50 MG TBEC 371650 DICLOFENAC SODIUM Inactive TOPAMAX 50 MG ORAL TABS 1 tab twice daily TOPAMAX 50 MG ORAL TABS 397260 TOPIRAMATE Inactive VIIBRYD 10 MG ORAL TABS Take 1 tablet once a day VIIBRYD 10 MG ORAL TABS VILAZODONE HCL Inactive LEVOFLOXACIN 500 MG ORAL TABS po daily LEVOFLOXACIN 500 MG ORAL TABS 210355 LEVOFLOXACIN Inactive METHYLPREDNISOLONE 4 MG ORAL TABS po daily METHYLPREDNISOLONE 4 MG ORAL TABS 215617 METHYLPREDNISOLONE Inactive OXYCODONE HCL ER 10 MG ORAL T12A 1/2 tab by mouth every 4 hours prn OXYCODONE HCL ER 10 MG ORAL T12A OXYCODONE HCL Inactive FLAGYL 500 MG TAB 1 tablet by mouth bid FLAGYL 500 MG TAB 590724 METRONIDAZOLE Inactive MONISTAT 7 COMBO PACK WOODROW 100 & 2 MG-% (9GM) VAG KIT 1 applicatorful per vagina q pm x 7 MONISTAT 7 COMBO PACK WOODROW 100 & 2 MG-% (9GM) VAG KIT MICONAZOLE NITRATE Inactive BACTRIM DS 800-160 MG TABS 1 twice a day BACTRIM DS 800-160 MG TABS 831226 SULFAMETHOXAZOLE-TRIMETHOPRIM Inactive TRAMADOL HCL 50 MG TABS 1/2-1 tab TID PRN TRAMADOL HCL 50 MG TABS 410212 TRAMADOL HCL Inactive ABILIFY MAINTENA 400 MG IM SUSR 400mg injection every 26 days ABILIFY MAINTENA 400 MG IM SUSR ARIPIPRAZOLE Inactive KLONOPIN 1 MG ORAL TABS 1 tab po TID KLONOPIN 1 MG ORAL TABS 115824 CLONAZEPAM Inactive ADVAIR DISKUS 250-50 MCG/DOSE INH AEPB 1 puff twice a day for asthma ADVAIR DISKUS 250-50 MCG/DOSE INH AEPB FLUTICASONE- SALMETEROL Inactive BENADRYL 25 MG CAP 4 po at bedtime for insomnia BENADRYL 25 MG CAP DIPHENHYDRAMINE HCL Inactive PREDNISONE 20 MG TABS 2 daily for 5 days then 1 daily for 5 days PREDNISONE 20 MG TABS 273663 PREDNISONE Inactive HYDROCODONE-ACETAMINOPHEN 5-325 MG ORAL TABS 1 tab two times a day HYDROCODONE-ACETAMINOPHEN 5-325 MG ORAL TABS 209760 HYDROCODONE-ACETAMINOPHEN Inactive ZITHROMAX Z-EARNEST 250 MG TABS 2 today and then 1 daily for 4 days ZITHROMAX Z-EARNEST 250 MG TABS 4876677 AZITHROMYCIN Inactive GUAIFENESIN-CODEINE 100-10 MG/5ML SYRP 5ml every 4 to 6 hours as needed for cough GUAIFENESIN-CODEINE 100-10 MG/5ML SYRP 452342 GUAIFENESIN-CODEINE Inactive HALOPERIDOL 10 MG ORAL TABS 1 tab q.d HALOPERIDOL 10 MG ORAL TABS 839528 HALOPERIDOL Inactive ASPIRIN 325 MG ORAL TABS 1 tab q.d ASPIRIN 325 MG ORAL TABS 067088 ASPIRIN Inactive FLUTICASONE PROPIONATE 50 MCG/ACT SUSP 2 sprays each nostril daily before bed. FLUTICASONE PROPIONATE 50 MCG/ACT SUSP 3773592 FLUTICASONE PROPIONATE Inactive ZOFRAN 4 MG TABS 1 po q6hr PRN Nausea ZOFRAN 4 MG TABS 002013 ONDANSETRON HCL Inactive KEFLEX 500 MG CAP 1 po qid KEFLEX 500 MG CAP 847632 CEPHALEXIN Inactive ACETAMINOPHEN-CODEINE 120-12 MG/5ML SOLN 5 ml by mouth every 4-6 hours if needed for cough ACETAMINOPHEN-CODEINE 120-12 MG/5ML SOLN 915780 ACETAMINOPHEN-CODEINE Inactive PREDNISONE 20 MG TAB 1 tablet daily x 4 days PREDNISONE 20 MG TAB 622852 PREDNISONE Inactive TROPICAMIDE 0.5 % OPHTH SOLN 1 drop PRN eye spasms TROPICAMIDE 0.5 % OPHTH SOLN 896264 TROPICAMIDE Inactive LEVAQUIN 500 MG TABS 1 daily for infection LEVAQUIN 500 MG TABS 137459 LEVOFLOXACIN Inactive PREDNISONE 10 MG TABS 2 daily for 5 days then 1 daily for 5 days PREDNISONE 10 MG TABS 084665 PREDNISONE Inactive EQ NICOTINE 21 MG/24HR TRANS PT24 Apply daily to stop smoking EQ NICOTINE 21 MG/24HR TRANS PT24 NICOTINE Inactive DIFLUCAN 150 MG TABS 1 by mouth for yeast DIFLUCAN 150 MG TABS 054287 FLUCONAZOLE Inactive BACTRIM DS 800-160 MG TABS 1 twice a day BACTRIM DS 800-160 MG TABS [id number] SULFAMETHOXAZOLE-TRIMETHOPRIM Inactive TESSALON PERLES 100 MG CAPS 1 three times a day as needed for cough TESSALON PERLES 100 MG CAPS 461631 BENZONATATE Inactive AMITIZA 8 MCG ORAL CAPS [...] twice a day MUPIROCIN 2 % OINT 844055 MUPIROCIN Inactive CEFDINIR 300 MG CAPS by mouth twice a day CEFDINIR 300 MG CAPS 036596 CEFDINIR Inactive PREDNISONE 20 MG TAB 2 tabs daily for 3 days, 1 tab daily for 3 days, 1/2 tab daily for 2 days PREDNISONE 20 MG TAB 251464 PREDNISONE Inactive BACTRIM DS 800-160 MG TABS [...] x 10 days KEFLEX 500 MG CAP 699688 CEPHALEXIN Inactive Advance Directives Directive Description Start [...] % 11.0-15.0 platelet count 443 THOUSAND/UL 10*3/mm3 514-963 4086/03/01 mean platelet volume 8.2 fL 7.5-12.5 leukocyte [...] % 11.0-15.0 platelet count 349 THOUSAND/UL 10*3/mm3 603-850 3255/04/12 mean platelet volume 8.4 fL 7.5-12.5 Lab Report: CBC, Thyroid Stimulating Hormone (L) - Chemistry TSH 0.62 m[iU]/mL 0.36-3.74 Lab Report: CBC, Thyroid Stimulating Hormone (L) - Hematology erythrocyte (RBC) count 4.78 10^6/MM^3 10*6/mm3 4.04-5.48 hemoglobin, blood 15.3 g/dL 12.0-16.0 hematocrit, blood 45.0 % 36.0-46.0 mean corpuscular volume, RBC 94 fL 80-97 mean corpuscular hemoglobin, RBC 32.1 pg 27.0-31.2 mean corpuscular hemoglobin concentration, RBC 34.1 G/DL % 31.8- 35.4 red blood cell distribution width 11.8 % 11.6-14.8 platelet count 369 10^3/MM^3 10*3/mm3 613-494 6570/12/21 leukocyte count, blood 11.1 10^3/MM^3 10*3/mm3 4.6-10.2 Lab Report: Chlamydia/GC APTIMA/65550 - Lab chlamydia DNA probe NOT DETECTED NOT DETECTED Lab Report: Chlamydia/GC APTIMA/20571 - Microbiology Neisseria gonorrhoeae DNA probe NOT DETECTED NOT DETECTED Lab Report: Chlamydia/GC APTIMA/24598, Urinalysis, Complete, with Reflex ... - Lab chlamydia DNA probe NOT DETECTED NOT DETECTED Lab Report: Chlamydia/GC APTIMA/22973, Urinalysis, Complete, with Reflex ... - Microbiology Neisseria gonorrhoeae DNA probe NOT DETECTED NOT DETECTED Lab Report: Chlamydia/GC APTIMA/07802, Urinalysis, Complete, with Reflex ... - Urinalysis microalbumin/total urine volume 2 mg/L Units converted. See lab report for original value. microalbumin/creatinine ratio, urine 9 MCG/MG CREAT mg/L <30 Lab Report: Comp. Metabolic Panel - Chemistry blood glucose 80 mg/dL 65-110 chloride, serum 103 mmol/L 98-107 potassium, serum 5.0 mmol/L 3.5-5.2 carbon dioxide, venous blood 33.7 mmol/L 21.0-32.0 sodium, serum 140 mmol/L 881-096 4700/08/08 urea nitrogen, blood 13 mg/dL 7-18 creatinine, serum 0.88 mg/dL 0.55-1.30 alanine aminotransferase (SGPT), serum 54 U/L 12-78 aspartate aminotransferase (SGOT), serum 29 U/L 15-37 calcium, serum 9.7 mg/dL 8.5-10.1 bilirubin, serum, total 0.30 mg/dL 0.00-1.00 sodium, serum 140 mmol/L 794-322 0183/06/28 carbon dioxide, venous blood 23.8 mmol/L 21.0-32.0 [...] random Trace mg/dL Negative RBC, urine, dipstick 1+ Negative RBC, urine, dipstick Negative Negative protein, total urine random Negative mg/dL Negative protein, total urine random Negative mg/dL Negative RBC, urine, dipstick Trace-intact Negative RBC, urine, dipstick Negative Negative protein, [...] 5.0-8.5 Encounters Code Encounter Date Provider Facility CPT-91964 Level 3 Est. [facility] 15:55:[facility] 4 Est. Patient 10:49:34 CDT Suzan [facility] CPT-00864 Level 3 Est. Patient 10:00:25 [facility] Level 3 Est. Patient 10:29:30 CDT Suzan Boo [facility] CPT-00277 Level 3 Est. Patient 11:04:38 CDT Renzo Thornton [facility] CPT-62328 Level 3 Est. Patient 11:15:58 BEATER OPERATOR Renzo Thornton [facility] CPT-84496 Level 3 Est. Patient 15:28:23 BEATER OPERATOR Suzan Boo [facility] CPT-16287 Level 4 Est. Patient 10:20:54 BEATER [facility]ATOR [facility] Level 3 Est. Patient 11:47:37 BEATER OPERATOR Ahmet Carbajal MD [facility] CPT-15235 Level 3 Est. Patient 10:40:11 BEATER OPERATOR Ahmet Carbajal MD [facility] CPT-05417 Level 3 Est. Patient 15:07:06 BEATER OPERATOR Neeraj Collins MD [facility] CPT-43153 Level 4 Est. Patient 14:45:00 BEATER OPERATOR Ahmet Carbajal MD [facility] CPT-56392 Level 3 Est. Patient 13:59:59 CDT Luigi Martínez [facility] CPT-01251 Level 3 Est. Patient 18:18:53 CDT Neeraj Collins MD [facility] CPT-73684 Level 3 Est. Patient 15:50:44 CDT Vishal Hui MD [facility] CPT-96743 Level 3 Est. Patient 11:36:17 CDT Ahmet Carbajal MD [facility] CPT-68542 Level 3 Est. Patient 13:29:16 CDT Vishal Hui MD [facility] CPT-40254 Level 3 Est. Patient 14:27:52 CDT Neeraj Collins MD [facility] CPT-17845 Level 3 Est. Patient 08:56:03 CDT Luigi Martínez [facility] CPT-73640 Level 4 Est. Patient 12:11:48 CDT Fabiola Johnson [facility] CPT-88035 Level 3 New Patient 16:53:37 CDT Albert Caldera MD [facility] CPT-77902 Level 3 Est. Patient 11:25:49 CDT Renzo Thornton DO [facility] CPT-23664 Level 3 Est. Patient 15:22:01 CDT Ahmet Carbajal MD [facility] CPT-86004 Level 4 Est. Patient 09:00:51 BEATER OPERATOR Vishal Hui MD [facility] CPT-04222 Level 3 Est. Patient 11:37:33 BEATER OPERATOR Vishal Hui MD [facility] CPT-99437 Level 3 Est. Patient 08:41:09 BEATER OPERATOR Vishal Hui MD [facility] CPT-85170 Level 4 Est. Patient 10:19:35 BEATER OPERATOR Vishal Hui MD [facility] CPT-74069 Level 3 Est. Patient 13:35:45 CDT Vishal Hui MD [facility] CPT-73612 Level 4 Est. Patient 10:08:37 CDT Vishal Hui MD [facility] CPT-52518 Level 3 Est. Patient 11:22:10 CDT Vishal Hui MD [facility] CPT-81888 Level 3 Est. Patient 11:03:32 CDT Sahara Rodriguez MD [facility]-16896 Level 3 Est. Patient 09:41:35 CDT Vishal Hui MD [facility] CPT-33873 Level 3 Est. Patient 12:00:41 CDT Neeraj Collins MD [facility] CPT-94411 Level 3 Est. Patient 09:16:24 CDT Vishal Hui MD [facility] CPT-86391 Level 4 Est. Patient 13:59:09 CDT Neeraj Collins MD [facility] CPT-26102 Level 3 Est. Patient 15:19:43 CDT Renzo Thornton DO [facility] CPT-78476 Level 3 Est. Patient 18:10:26 CDT Sahara Rodriguez MD [facility] CPT-38052 Level 3 Est. Patient 14:49:50 CDT Vishal Hui MD [facility] CPT-70669 Level 4 Est. Patient 18:41:46 CDT Neeraj Collins MD [facility] CPT-28368 Level 4 Est. Patient 09:18:38 BEATER OPERATOR Vishal Hui MD [facility] CPT-11614 Level 3 Est. Patient 14:43:55 BEATER OPERATOR Vishal Hui MD [facility] CPT-60909 Level 3 Est. Patient 15:26:33 BEATER OPERATOR Sahara Rodriguez MD PhD [facility] CPT-22462 Level 3 Est. Patient 10:32:14 BEATER OPERATOR Vihsal Hui MD [facility] CPT-95304 Level 3 Est. Patient 15:12:52 BEATER OPERATOR Vishal Hui MD [facility] CPT-33505 Level 4 Est. Patient 09:19:27 CDT Vishal Hui MD [facility] CPT-13596 Level 3 Est. Patient 15:53:00 CDT Renzo Barajas [facility] CPT-74159 Level 3 Est. Patient 15:50:30 CDT Renzo Tohrnton [facility] CPT-05456 Level 3 Est. Patient 16:55:24 CDT Vishal Hui MD [facility] Procedures Code Procedure Name Date Entry Date Standard Description CPT-68894 EKG Trac and Interp - XRAY USE ONLY 15:59:30 CDT 09/13 CPT-07916 Chest 1V Frontal - XRAY USE ONLY 15:59:30 CDT CPT-80858 Venipuncture Draw Fee 15:44:02 CDT CPT-47063 Venipuncture Draw Fee 08:41:12 CDT CPT-67374 Abd compl w upright - XRAY USE ONLY 10:27:59 CDT 06/28 CPT-14894 Smoking Cessation counseling 11:15:58 BEATER OPERATOR CPT-G0439 [facility] Annual Wellness Exam 09:30:58 BEATER OPERATOR CPT-46178 TSH - LAB USE ONLY 08:50:26 BEATER OPERATOR CPT-44746 CBC - LAB USE ONLY 08:50:26 BEATER OPERATOR CPT-32475 Venipuncture Draw Fee 08:50:26 BEATER OPERATOR CPT-96600 Abx/Therapy Injection 17:34:30 BEATER OPERATOR CPT-05747 Nexplanon Removal with Reinsertion 14:09:32 CDT CPT-J7307 Nexplanon (Implant) 14:09:32 CDT CPT-OV Office Visit 14:09:32 CDT CPT-75090 UA w micro - LAB USE ONLY 16:21:13 CDT CPT-41198 Wet Mount - LAB USE ONLY 16:21:13 CDT CPT-89145 First Vx - Ix admin for Medicare patients 14:37:47 CDT CPT-23199 Fluzone Preservative Free Intramuscular Suspension 14:37 :47 CDT CPT-87091 Abx/Therapy Injection 13:54:22 CDT CPT-59056 Abx/Therapy Injection 08:47:09 CDT CPT-22474 Abx/Therapy Injection 13:29:56 CDT CPT-67183 Abx/Therapy Injection 08:36:16 CDT CPT-84210 Wet Mount - LAB USE ONLY 17:44:58 CDT CPT-13584 UA w micro - LAB USE ONLY 17:44:58 CDT CPT-27576 CMP - LAB USE ONLY 17:44:58 CDT CPT-37744 Venipuncture Draw Fee 17:44:58 CDT CPT-69811 Cervical Min 4V - XRAY USE ONLY 09:01:40 CDT CPT-64544 Chest 2V Frontal and Lat - XRAY USE ONLY 11:06:31 CDT CPT-98502 EKG Trac and Interp - XRAY USE ONLY 11:31:43 CDT 08/26 CPT-J3420 Vitamin B12 1000mcg (Cyanocobalamin) 08:10:26 BEATER OPERATOR 04/12 CPT-57614 Abx/Therapy Injection 08:10:26 BEATER OPERATOR CPT-G0438 Initial Annual Wellness Exam 19:01:01 BEATER OPERATOR CPT-J3420 Vitamin B12 1000mcg (Cyanocobalamin) 16:57:46 CDT 08/14 CPT-24158 Recombivax HB Injection Suspension 5 MCG/0.5ML 08:37:50 BEATER OPERATOR CPT-95354 Immunization Single Admin 08:37:50 BEATER OPERATOR CPT-J3420 Vitamin B12 1000mcg (Cyanocobalamin) 08:32:16 BEATER OPERATOR 03/11 CPT-39427 Abx/Therapy Injection 08:32:16 BEATER OPERATOR CPT-21575 Chest 2V Frontal and Lat 11:46:38 BEATER OPERATOR CPT-82824 Venipuncture Draw Fee 09:12:45 BEATER OPERATOR CPT-J3420 Vitamin B12 1000mcg (Cyanocobalamin) 08:50:15 BEATER OPERATOR 02/08 CPT-53639 Abx/Therapy Injection 08:50:15 BEATER OPERATOR CPT-Cryo Cryotherapy 10:19:35 BEATER OPERATOR CPT-000 Give Appropriate Flu Vaccine 09:22:16 CDT CPT-J3420 Vitamin B12 1000mcg (Cyanocobalamin) 19:08:57 CDT 01/11 CPT-68191 Abx/Therapy Injection 19:08:57 CDT CPT-J3420 Vitamin B12 1000mcg (Cyanocobalamin) 08:19:08 CDT 12/11 CPT-33113 Abx/Therapy Injection 08:19:08 CDT CPT-J3420 Vitamin B12 1000mcg (Cyanocobalamin) 14:48:00 CDT 11/09 CPT-17180 Abx/Therapy Injection 14:47:59 CDT CPT-J3420 Vitamin B12 1000mcg (Cyanocobalamin) 08:34:04 CDT 10/09 CPT-78718 Abx/Therapy Injection 08:34:04 CDT CPT-J3420 Vitamin B12 1000mcg (Cyanocobalamin) 09:18:52 CDT 09/11 CPT-48105 Abx/Therapy Injection 09:18:52 CDT CPT-J3420 Vitamin B12 1000mcg (Cyanocobalamin) 08:35:44 CDT 09/04 CPT-00222 Abx/Therapy Injection 08:35:44 CDT CPT-51966 Immunization Single Admin 11:07:16 CDT CPT-75451 Hepatitis B adult IM 11:07:16 CDT CPT-J3420 Vitamin B12 1000mcg (Cyanocobalamin) 11:00:49 CDT 08/28 CPT-J1040 Depo Medrol 80 mg (Methyl Prednisolone Acetate) 11:00: 49 CDT CPT-04683 Abx/Therapy Injection 11:00:49 CDT CPT-J1040 Depo Medrol 80 mg (Methyl Prednisolone Acetate) 09:16: 23 CDT CPT-J3420 Vitamin B12 1000mcg (Cyanocobalamin) 08:27:05 CDT 08/20 CPT-39761 Abx/Therapy Injection 08:27:05 CDT CPT-84890 Recombivax HB Injection Suspension 5 MCG/0.5ML 10:00:41 CDT CPT-17263 Administration single or combination vaccine inc oral 10 :00:41 CDT CPT-83401 Sono transvag pelvis non OB uterus ovaries cervix 16:36: 57 CDT CPT-37792 LS spine comp w obliq 09:50:55 BEATER OPERATOR CPT-45021 Abd compl w upright 09:50:55 BEATER OPERATOR CPT-J1100 Decadron 4mg (Dexamethasone) 15:51:24 BEATER OPERATOR CPT-J1030 Depo Medrol 40 mg (Methyl Prednisolone Acetate) 15:51: 24 BEATER OPERATOR CPT-42687 Abx/Therapy Injection 15:51:24 BEATER OPERATOR CPT-J1100 Decadron 4mg (Dexamethasone) 15:26:33 BEATER OPERATOR CPT-J1030 Depo Medrol 40 mg (Methyl Prednisolone Acetate) 15:26: 33 BEATER OPERATOR CPT-31521 Sono retroperitoneal complete kidneys and bladder 17:15: 30 CDT CPT-72798 Abd compl w upright 16:09:25 CDT CPT-J1100 Decadron 8mg (Dexamethasone) 17:07:57 CDT CPT-74565 Abx/Therapy Injection 17:07:57 CDT CPT-J1100 Decadron 8mg (Dexamethasone) 16:55:24 CDT CPT-34848 Chest 2V Frontal and Lat 16:32:44 CDT
--- OUTSIDE RECORDS SUMMARY | 2016-11-04 13:31 | XMS REPORT | Clinical Summary ---
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 May repeat dose x 1 in 2 hours if needed SUMATRIPTAN SUCCINATE 96963490848 Active Vishal Hui MD Active OXYCODONE HCL ER 10 MG ORAL T12A 1/2 tab by mouth every 4 hours prn OXYCODONE HCL 03730909238 Active Neeraj Collins MD Active METHYLPREDNISOLONE 4 MG ORAL TABS po daily METHYLPREDNISOLONE 43547717090 Active Vishal Hui MD Active LEVOFLOXACIN 500 MG ORAL TABS po daily LEVOFLOXACIN 23822997727 Active Vishal Hui MD Active CHANTIX STARTING MONTH EARNEST 0.5 MG X 11 & 1 MG X 42 TABS take as directed 2015 VARENICLINE TARTRATE 41163918126 Active Ahmet Carbajal MD Active CHANTIX 1 MG TABS 1 twice a day to help quit smoking VARENICLINE TARTRATE 31960222140 Active Ahmet Carbajal MD Active HYDROCODONE-ACETAMINOPHEN 5-325 MG TABS 1 to 2 four times a day as needed for pain use until can be seen by specialist HYDROCODONE- ACETAMINOPHEN 34313441879 No Longer Active Vishal Hui MD Active PROAIR HFA 108 (90 BASE) MCG/ACT AERS 2 puffs four times a day as needed 2015 ALBUTEROL SULFATE 66241424698 No Longer Active Vishal Hui MD Active PREDNISONE 20 MG TABS 2 daily for 5 days then 1 daily for 5 days PREDNISONE 02694322527 No Longer Active Vishal Hui MD Active ZITHROMAX Z-EARNEST 250 MG TABS 2 today and then 1 daily for 4 days AZITHROMYCIN 00191955089 No Longer Active Vishal Hui MD Active DICLOFENAC SODIUM 50 MG TBEC 1 tablet by mouth four times daily PRN Pain 2015 DICLOFENAC SODIUM 31892013734 Active Vishal Hui MD Active DICLOFENAC POTASSIUM TABS Take 1 tablet twice a day (pt. is not sure of the dose.) DICLOFENAC POTASSIUM TABS 24069651851 No Longer Active Vishal Hui MD Active VERAPAMIL HCL ER 120 MG ORAL CR-TABS Take 1 tablet by mouth twice a day. VERAPAMIL HCL 73961948430 Active Vishal Hui MD Active FLAGYL 500 MG TAB 1 tablet by mouth bid METRONIDAZOLE 27039509576 No Longer Active Vishal Hui MD Active FLUTICASONE PROPIONATE 50 MCG/ACT SUSP 2 sprays each nostril daily before bed. FLUTICASONE PROPIONATE 32882211398 Active Fabiola Johnson APRN Active ADZENYS XR-ODT 6.3 MG ORAL TBED 1 tab po daily for ADHD AMPHETAMINE 93681856693 Active Fabiola Johnson APRN Active BENADRYL 25 MG CAP 4 po at bedtime for insomnia DIPHENHYDRAMINE HCL 20326086195 Active Fabiola Johnson APRN Active KLONOPIN 1 MG ORAL TABS 1 tab po TID CLONAZEPAM 05027506715 Active Fabiola Johnson APRN Active VALIUM 5 MG TAB Take 1-2 tablets daily DIAZEPAM 41182087232 No Longer Active Fabiola Johnson APRN Active METOPROLOL TARTRATE 25 MG ORAL TABS 1/2 tablet twice daily for heart rate and blood pressure METOPROLOL TARTRATE 63469741133 No Longer Active Fabiola Johnson APRN Active MIRALAX ORAL POWD 17GMS DAILY IN WATER POLYETHYLENE GLYCOL 3350 13556697864 Active Vishal Hui MD Active VIIBRYD 10 MG ORAL TABS Take 1 tablet once a day VILAZODONE HCL 73226051409 Active Ahmet Carbajal MD Active MIRALAX PACK 1 po qd PRN Constipation POLYETHYLENE GLYCOL 3350 42565274801 No Longer Active Ahmet Carbajal MD Active MINIPRESS 2 MG CAPS 4 cap po at night PRAZOSIN HCL 94082531021 No Longer Active Ahmet Carbajal MD Active PIROXICAM 20 MG CAPS 1 cap po qd PRN Pain PIROXICAM 39249398083 No Longer Active Ahmet Carbajal MD Active TRAMADOL HCL 50 MG TABS 1-2 po TID PRN Pain TRAMADOL HCL 23832880600 No Longer Active Ahmet Carbajal MD Active METOPROLOL TARTRATE 50 MG TAB 1 po bid METOPROLOL TARTRATE 65754283789 No Longer Active Ahmet Carbajal MD Active ABILIFY 15 MG ORAL TABS 1 tab daily ARIPIPRAZOLE 67175318728 No Longer Active Ahmet Carbajal MD Active PROZAC 20 MG ORAL CAPS 1 tab daily FLUOXETINE HCL 50995954146 No Longer Active Ahmet Carbajal MD Active AMBIEN 5 MG ORAL TABS 1 tab at bedtime ZOLPIDEM TARTRATE 34989364943 No Longer Active Ahmet Carbajal MD Active PREDNISONE 20 MG TAB 2 tabs daily for 4 days, 1 tab daily for 4 days, 1/2 tab daily for 4 days PREDNISONE 74479057318 No Longer Active Ahmet Carbajal MD Active KEFLEX 500 MG CAP 1 po TID x 10 days CEPHALEXIN 21232674817 No Longer Active Vishal Hui MD Active TOPAMAX 50 MG ORAL TABS 1 tab twice daily TOPIRAMATE 44492355110 Active Vishal Hui MD Active SAPHRIS 5 MG SUBL 1 po bid ASENAPINE MALEATE 03945017677 No Longer Active Luigi Martínez [employer] OWNER OPERATOR TRUCK DRIVER Active LATUDA 80 MG TABS Take one by mouth daily LURASIDONE HCL 66968364021 No Longer Active Pacollina Mauricio [employer]IONAL OWNER OPERATOR TRUCK DRIVER Active AMLODIPINE BESYLATE 5 MG TABS 1 tablet by mouth daily AMLODIPINE BESYLATE 81592912251 No Longer Active Luigi Martínez [employer]IONAL OWNER OPERATOR TRUCK DRIVER Active AMITRIPTYLINE HCL 100 MG TAB one at hs AMITRIPTYLINE HCL 11269836547 No Longer Active Vishal Hui MD Active TRAZODONE HCL 100 MG TAB take 1 at bedtime TRAZODONE HCL 67584748288 No Longer Active Vishal Hui MD Active VYVANSE 40 MG CAPS 1 daily, LISDEXAMFETAMINE DIMESYLATE 37564483013 No Longer Active Vishal Hui MD Active IBUPROFEN 600 MG TAB 1 po TID PRN IBUPROFEN 49580993703 No Longer Active Vishal Hui MD Active PROZAC 20 MG CAP Take one by mouth daily FLUOXETINE HCL 77043265405 No Longer Active Vishal Hui MD Active ZOFRAN 4 MG TABS 1 po q6hr PRN Nausea ONDANSETRON HCL Active Vishal Hui MD Active BACTRIM DS 800-160 MG TABS 1 pill by mouth twice daily SULFAMETHOXAZOLE-TRIMETHOPRIM 96568908723 No Longer Active Sahara Rodriguez MD PhD Active DIFLUCAN 150 MG TAB 1 tablet by mouth daily FLUCONAZOLE 85827763695 No Longer Active Vishal Hui MD Active TIZANIDINE HCL 4 MG TABS 1 po q6hr PRN Muscle Spasm/Back Pain TIZANIDINE HCL 18498188709 Active Vishal Hui MD Active CLINDAMYCIN HCL 150 MG CAPS 1 four times a day CLINDAMYCIN HCL 70934204019 No Longer Active Neeraj Collins MD Active KEFLEX 500 MG ORAL CAPS 1 cap QID by mouth CEPHALEXIN 12309072433 No Longer Active Neeraj Collins MD Active DIFLUCAN 150 MG TABS 1 pill every other day x 2 doses FLUCONAZOLE 08024875460 No Longer Active Sahara Rodriguez MD PhD Active MELATONIN 3 MG CAPS 2 po q hs MELATONIN 38604522801 No Longer Active Sahara Rodriguez MD PhD Active MULTIVITAMINS CAPS Take one by mouth daily MULTIPLE VITAMIN 19634442304 No Longer Active Sahara Rodriguez MD PhD Active BACTRIM DS 800-160 MG TAB 1 tab by mouth twice daily TRIMETHOPRIM-SULFAMETHOXAZOLE 55148415307 No Longer Active Sahara Rodriguez MD PhD Active [facility] PROBIOTIC ORAL CHEW 2 daily po PROBIOTIC PRODUCT 64681488389 No Longer Active Sahara Rodriguez MD PhD Active BACTRIM DS 800-160 MG TABS 1 po BID x 7 days SULFAMETHOXAZOLE-TRIMETHOPRIM 62044019099 No Longer Active Vishal Hui MD Active CHANTIX STARTING MONTH EARNEST 0.5 MG X 11 & 1 MG X 42 TABS 0.5mg daily for 3 days , then 0.5mg BID for 4 days, then 1mg BID VARENICLINE TARTRATE 43841384076 No Longer Active TAMARA Gray Active VERAPAMIL HCL CR 120 MG TAB CR 1 po bid VERAPAMIL HCL 19505455383 No Longer Active Vishal Hui MD Active METOPROLOL SUCCINATE 50 MG TB24 1 tablet by mouth daily METOPROLOL SUCCINATE 30093423756 No Longer Active Vishal Hui MD Active SAPHRIS 10 MG SUBL 1 tab po bid ASENAPINE MALEATE 94294895822 No Longer Active Vishal Hui MD Active LISINOPRIL 20 MG TABS 1 tab po qd LISINOPRIL 97836776092 No Longer Active Vishal Hui MD Active LATUDA 20 MG TABS Take one by mouth daily LURASIDONE HCL 75807108023 No Longer Active Vishal Hui MD Active TRAZODONE HCL 50 MG TABS 1/2 tab po qd prn for anxiety TRAZODONE HCL 02483791049 No Longer Active Vishal Hui MD Active OMEPRAZOLE 20 MG TBEC 1 po q a.m. 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 LINZESS 290 MCG CAPS Take one by mouth daily LINACLOTIDE 69767459582 No Longer Active Vishal Hui MD Active SAPHRIS 5 MG SUBL 1 tab po qd ASENAPINE MALEATE 43008729996 No Longer Active Vishal Hui MD Active ZALEPLON 10 MG CAPS 1 cap po every other night ZALEPLON 65087967703 No Longer Active Vishal Hui MD Active LYRICA 50 MG CAPS 1 tab po TID PREGABALIN 05453597421 No Longer Active Vishal Hui MD Active LORATADINE 10 MG TABS 1 tab po qd LORATADINE 89723150622 No Longer Active Vishal Hui MD Active VERAPAMIL HCL ER 180 MG CR-TABS 1 tab po bid VERAPAMIL HCL 68097894403 No Longer Active Vishal Hui MD Active MIRALAX POWD 1 capfull once daily POLYETHYLENE GLYCOL 3350 77910840690 No Longer Active Vishal Hui MD Active PREDNISONE 20 MG TABS 1 tab po qd PREDNISONE 02354994381 No Longer Active Renzo Thornton DO Active LEVOFLOXACIN 500 MG TABS 1 tab po qd LEVOFLOXACIN 76749498991 No Longer Active Renzo Thornton DO Active BUSPIRONE HCL 15 MG TABS 1 tab po TID BUSPIRONE HCL 87472499035 No Longer Active Renzo Thornton DO Active BENZTROPINE MESYLATE 1 MG TABS 1 tab po qd BENZTROPINE MESYLATE 20374988456 No Longer Active Renzo Thornton DO Active ATENOLOL 25 MG TABS 1 tab po qd ATENOLOL 55905055131 No Longer Active Renzo Thornton DO Active ESCITALOPRAM OXALATE 20 MG TABS 1 tab po qd ESCITALOPRAM OXALATE 37291334265 No Longer Active Renzo Thornton DO Active ADVAIR DISKUS 250-50 MCG/DOSE AEPB 1 puff BID FLUTICASONE-SALMETEROL 18724148242 No Longer Active Renzo Thornton DO Active PREDNISONE 20 MG TAB 2 tabs daily for 3 days, 1 tab daily for 3 days, 1/2 tab daily for 2 days PREDNISONE 46707005789 No Longer Active Vishal Hui MD Active CEFDINIR 300 MG CAPS by mouth twice a day CEFDINIR 47533369357 No Longer Active Vishal Hui MD Active LANSOPRAZOLE 30 MG CPDR 1 cap po qd LANSOPRAZOLE 03227227930 No Longer Active Vishal Hui MD Active BACLOFEN 20 MG TABS 1 tab po tid BACLOFEN 66723825592 No Longer Active Vishal Hui MD Active ADVAIR DISKUS 250-50 MCG/DOSE AEPB 1 puff BID ADVAIR DISKUS 250-50 MCG/DOSE AEPB FLUTICASONE-SALMETEROL Inactive ESCITALOPRAM OXALATE 20 MG TABS 1 tab po qd ESCITALOPRAM OXALATE 20 MG TABS 251535 ESCITALOPRAM OXALATE Inactive ATENOLOL 25 MG TABS 1 tab po qd ATENOLOL 25 MG TABS 539685 ATENOLOL Inactive BENZTROPINE MESYLATE 1 MG TABS 1 tab po qd BENZTROPINE MESYLATE 1 MG TABS 764855 BENZTROPINE MESYLATE Inactive BUSPIRONE HCL 15 MG TABS 1 tab po TID BUSPIRONE HCL 15 MG TABS 363156 BUSPIRONE HCL Inactive LEVOFLOXACIN 500 MG TABS 1 tab po qd LEVOFLOXACIN 500 MG TABS 831531 LEVOFLOXACIN Inactive PREDNISONE 20 MG TABS 1 tab po qd PREDNISONE 20 MG TABS 013936 PREDNISONE Inactive MIRALAX POWD 1 capfull once daily MIRALAX POWD 961332 POLYETHYLENE GLYCOL 3350 Inactive VERAPAMIL HCL ER 180 MG CR-TABS 1 tab po bid VERAPAMIL HCL ER 180 MG CR-TABS VERAPAMIL HCL Inactive LORATADINE 10 MG TABS 1 tab po qd LORATADINE 10 MG TABS 305696 LORATADINE Inactive LYRICA 50 MG CAPS 1 tab po TID LYRICA 50 MG CAPS PREGABALIN Inactive ZALEPLON 10 MG CAPS 1 cap po every other night ZALEPLON 10 MG CAPS 029029 ZALEPLON Inactive SAPHRIS 5 MG SUBL 1 tab po qd SAPHRIS 5 MG SUBL ASENAPINE MALEATE Inactive TRAZODONE HCL 50 MG TABS 1/2 tab po qd prn for anxiety TRAZODONE HCL 50 MG TABS 755434 TRAZODONE HCL Inactive LATUDA 20 MG TABS Take one by mouth daily LATUDA 20 MG TABS LURASIDONE HCL Inactive LISINOPRIL 20 MG TABS 1 tab po qd LISINOPRIL 20 MG TABS 026802 LISINOPRIL Inactive SAPHRIS 10 MG SUBL 1 [...] twice daily BACTRIM DS 800-160 MG TAB 563700 TRIMETHOPRIM-SULFAMETHOXAZOLE Inactive MULTIVITAMINS CAPS Take one by mouth daily MULTIVITAMINS CAPS MULTIPLE VITAMIN Inactive MELATONIN 3 MG CAPS 2 po q hs MELATONIN 3 MG CAPS 19950526 MELATONIN Inactive KEFLEX 500 MG ORAL CAPS 1 cap QID by mouth KEFLEX 500 MG ORAL CAPS 816995 CEPHALEXIN Inactive CLINDAMYCIN HCL 150 MG CAPS 1 four times a day CLINDAMYCIN HCL 150 MG CAPS 604934 CLINDAMYCIN HCL Inactive DIFLUCAN 150 MG TAB 1 tablet by mouth daily DIFLUCAN 150 MG TAB 212726 FLUCONAZOLE Inactive PROZAC 20 MG CAP Take one by mouth daily PROZAC 20 MG CAP 877101 FLUOXETINE HCL Inactive IBUPROFEN 600 MG TAB 1 po TID PRN IBUPROFEN 600 MG TAB 554439 IBUPROFEN Inactive VYVANSE 40 MG CAPS 1 daily, VYVANSE 40 MG CAPS LISDEXAMFETAMINE DIMESYLATE Inactive TRAZODONE HCL 100 MG TAB take 1 at bedtime TRAZODONE HCL 100 MG TAB 657161 TRAZODONE HCL Inactive AMITRIPTYLINE HCL 100 MG TAB one at hs AMITRIPTYLINE HCL 100 MG TAB 218727 AMITRIPTYLINE HCL Inactive AMLODIPINE BESYLATE 5 MG TABS 1 tablet by mouth daily AMLODIPINE BESYLATE 5 MG TABS 100139 AMLODIPINE BESYLATE Inactive LATUDA 80 MG TABS Take one by mouth daily LATUDA 80 MG TABS LURASIDONE HCL Inactive SAPHRIS 5 MG SUBL 1 po bid SAPHRIS 5 MG SUBL ASENAPINE MALEATE Inactive PREDNISONE 20 MG TAB 2 tabs daily for 4 days, 1 tab daily for 4 days, 1/2 tab daily for 4 days PREDNISONE 20 MG TAB 732670 PREDNISONE Inactive AMBIEN 5 MG ORAL TABS 1 tab at bedtime AMBIEN 5 MG ORAL TABS 008087 ZOLPIDEM TARTRATE Inactive PROZAC 20 MG ORAL CAPS 1 tab daily PROZAC 20 MG ORAL CAPS 660039 FLUOXETINE HCL Inactive ABILIFY 15 MG ORAL TABS 1 tab daily ABILIFY 15 MG ORAL TABS 463273 ARIPIPRAZOLE Inactive METOPROLOL TARTRATE 50 MG TAB 1 po bid METOPROLOL TARTRATE 50 MG TAB 191074 METOPROLOL TARTRATE Inactive TRAMADOL HCL 50 MG TABS 1-2 po TID PRN Pain TRAMADOL HCL 50 MG TABS 230043 TRAMADOL HCL Inactive PIROXICAM 20 MG CAPS 1 cap po qd PRN Pain PIROXICAM 20 MG CAPS 655129 PIROXICAM Inactive MINIPRESS 2 MG CAPS 4 cap po at night MINIPRESS 2 MG CAPS 652568 PRAZOSIN HCL Inactive MIRALAX PACK 1 po qd PRN Constipation MIRALAX PACK 404965 POLYETHYLENE GLYCOL 3350 Inactive METOPROLOL TARTRATE 25 MG ORAL TABS 1/2 tablet twice daily for heart rate and blood pressure METOPROLOL TARTRATE 25 MG ORAL TABS 370255 METOPROLOL TARTRATE Inactive VALIUM 5 MG TAB Take 1-2 tablets daily VALIUM 5 MG TAB 537985 DIAZEPAM Inactive FLAGYL 500 MG TAB 1 tablet by mouth bid FLAGYL 500 MG TAB 089939 METRONIDAZOLE Inactive DICLOFENAC POTASSIUM TABS Take 1 tablet twice a day (pt. is not sure of the dose.) DICLOFENAC POTASSIUM TABS DICLOFENAC POTASSIUM TABS Inactive ZITHROMAX Z-EARNEST 250 MG TABS 2 today and then 1 daily for 4 days ZITHROMAX Z-EARNEST 250 MG TABS 3645148 AZITHROMYCIN Inactive PREDNISONE 20 MG TABS 2 daily for 5 days then 1 daily for 5 days PREDNISONE 20 MG TABS 954901 PREDNISONE Inactive PROAIR HFA 108 (90 BASE) MCG/ACT AERS 2 puffs four times a day as needed 2015 PROAIR HFA 108 (90 BASE) MCG/ACT AERS ALBUTEROL SULFATE Inactive HYDROCODONE-ACETAMINOPHEN 5-325 MG TABS 1 to 2 four times a day as needed for pain use until can be seen by specialist HYDROCODONE- ACETAMINOPHEN 5-325 MG TABS 958584 HYDROCODONE-ACETAMINOPHEN Inactive TESSALON PERLES 100 MG CAP 1 to 2 tablets by mouth 3 times daily as needed for cough TESSALON PERLES 100 MG CAP 335634 BENZONATATE Inactive CEFDINIR 300 MG CAPS by mouth twice a day CEFDINIR 300 MG CAPS 596709 CEFDINIR Inactive PREDNISONE 20 MG TAB 2 tabs daily for 3 days, 1 tab daily for 3 days, 1/2 tab daily for 2 days PREDNISONE 20 MG TAB 040735 PREDNISONE Inactive BACTRIM DS 800-160 MG TABS 1 po BID x 7 days BACTRIM DS 800-160 MG TABS 19820521 SULFAMETHOXAZOLE-TRIMETHOPRIM Inactive DIFLUCAN 150 MG TABS 1 pill every other day x 2 doses DIFLUCAN 150 MG TABS 677195 FLUCONAZOLE Inactive BACTRIM DS 800-160 MG TABS 1 pill by mouth twice daily BACTRIM DS 800-160 MG TABS 19820521 SULFAMETHOXAZOLE-TRIMETHOPRIM Inactive KEFLEX 500 MG CAP 1 po TID x 10 days KEFLEX 500 MG CAP 065789 CEPHALEXIN Inactive Advance Directives Directive Description Start [...] Lab Report: CBC - Hematology mean corpuscular volume, RBC 93 fL 80-97 mean corpuscular hemoglobin, RBC 31.4 pg 27.0-31.2 mean corpuscular hemoglobin concentration, RBC 33.7 G/DL % 31.8- 35.4 red blood cell distribution width 13.4 % 11.6-14.8 platelet count 394 10^3/MM^3 10*3/mm3 068-422 1228/12/22 leukocyte count, blood 10.5 10^3/MM^3 10*3/mm3 4.6-10.2 erythrocyte (RBC) count 4.19 10^6/MM^3 10*6/mm3 4.04-5.48 hemoglobin, blood 13.1 g/dL 12.0-16.0 hematocrit, blood 39.0 % 36.0-46.0 leukocyte count, blood 13.8 10^3/MM^3 10*3/mm3 4.6-10.2 [...] percent of blood leukocytes 29.2 % 20.5-51.1 leukocyte count, blood 11.4 10^3/MM^3 10*3/mm3 4.6-10.2 erythrocyte (RBC) count 4.26 10^6/MM^3 10*6/mm3 4.04-5.48 [...] Panel - Chemistry sodium, serum 139 mmol/L 526-718 8602/12/03 carbon dioxide, venous blood 28.5 mmol/L 21.0-32.0 [...] 5.5 % 4.3-6.0 cholesterol, serum 159 mg/dL 768-322 9358/12/03 triglyceride, serum, fasting 118 mg/dL 30-200 HDL [...] 362 10^3/MM^3 10*3/mm3 142-424 Lab Report: Chlamydia/GC APTIMA/[id number] - Lab chlamydia DNA probe NOT DETECTED NOT DETECTED Lab Report: Chlamydia/GC [facility]TIMA/[id number] - Microbiology Neisseria gonorrhoeae DNA probe NOT DETECTED NOT DETECTED Lab Report: Comp. Metabolic Panel - Chemistry sodium, serum 140 mmol/L 637-946 1393/08/08 carbon dioxide, venous blood 33.7 mmol/L 21.0-32.0 potassium, serum 5.0 mmol/L 3.5-5.2 chloride, serum 103 mmol/L 98-107 blood glucose 80 mg/dL 65-110 urea nitrogen, blood 13 mg/dL 7-18 creatinine, serum 0.88 mg/dL 0.55-1.30 alanine aminotransferase (SGPT), serum 54 U/L -78 aspartate aminotransferase (SGOT), serum 29 U/L 15-37 calcium, serum 9.7 mg/dL 8.5-10.1 bilirubin, serum, total 0.30 mg/dL 0.00-1.00 potassium, serum 4.2 mmol/L 3.5-5.2 creatinine, serum 0.90 mg/dL 0.55-1.30 alanine aminotransferase (SGPT), serum 38 U/L aspartate aminotransferase (SGOT), serum 19 U/L 15-37 calcium, serum 8.6 mg/dL 8.5-10.1 bilirubin, serum, total 0.30 mg/dL 0.00-1.00 chloride, serum 103 mmol/L 98-107 blood glucose 115 mg/dL 65-110 urea nitrogen, blood 20 mg/dL 7-18 sodium, serum 139 mmol/L 972-476 0000/12/22 carbon dioxide, venous blood 26.8 mmol/L 21.0-32.0 sodium, serum 139 mmol/L 546-603 8538/01/11 carbon dioxide, venous blood 26.6 mmol/L 21.0-32.0 potassium, serum 4.1 mmol/L 3.5-5.2 chloride, serum 100 mmol/L 98-107 blood glucose 86 mg/dL 65-110 urea nitrogen, blood 16 mg/dL 7-18 creatinine, serum 1.00 mg/dL 0.55-1.30 alanine aminotransferase (SGPT), serum 48 U/L aspartate aminotransferase (SGOT), serum 17 U/L 15-37 calcium, serum 9.1 mg/dL 8.5-10.1 bilirubin, serum, total 0.40 mg/dL 0.00-1.00 sodium, serum 142 mmol/L 961-628 8209/06/08 carbon dioxide, venous blood 27.6 mmol/L 21.0-32.0 [...] Rate - Chemistry sodium, serum 139 mmol/L 608-514 4468/12/11 carbon dioxide, venous blood 25.4 mmol/L 21.0-32.0 [...] luteinizing hormone, serum 2.7 m[iU]/mL Lab Report: [facility] W/MICRO, AUTO - Chemistry protein, total urine [...] serum, free 1.02 ng/dL 0.76-1.46 Lab Report: [facility] W/MICRO, AUTO - Chemistry RBC, urine, dipstick [...] Negative Negative nitrite, urine, semiquantitative Negative Negative specific gravity, urine 1.025 1.000-1.030 appearance, urine Clear Clear urine color Yellow Colorless;Lightyellow;Straw;Yellow glucose, urine, semiquantitative Negative Negative ketones, urine, by test strip Negative Negative bilirubin, urine Negative Negative pH, urine, semiquantitative 5.5 5.0-8.5 urobilinogen, urine, [...] mg/dL Encounters Code Encounter Date Provider Facility CPT-14205 Level 3 Est. Patient 13:59:59 CDT Luigi Mart[facility]nez [facility] CPT-84505 Level 3 Est. Patient 18:18:53 CDT Neeraj Collins MD [facility] CPT-23053 Level 3 Est. Patient 15:50:44 CDT Vishal Hui MD [facility] CPT-86304 Level 3 Est. Patient 11:36:17 CDT Ahmet Carbajal MD [facility] CPT-95115 Level 3 Est. Patient 13:29:16 CDT Vishal Hui MD [facility] CPT-27099 Level 3 Est. Patient 14:27:52 CDT Neeraj Collins MD [facility] CPT-57324 Level 3 Est. Patient 08:56:03 CDT Luigi Martínez [facility] CPT-82008 Level 4 Est. Patient 12:11:48 CDT Fabiola Johnson [facility] CPT-01059 Level 3 New Patient 16:53:37 CDT Albert Caldera MD [facility] CPT-54069 Level 3 Est. Patient 11:25:49 CDT Renzo Thornton DO [facility] CPT-60160 Level 3 Est. Patient 15:22:01 CDT Ahmet Carbajal MD [facility] CPT-48877 Level 4 Est. Patient 09:00:51 ASSISTANT STATISTICIAN Vishal Hui MD [facility] CPT-01993 Level 3 Est. Patient 11:37:33 ASSISTANT STATISTICIAN Vishal Hui MD [facility] CPT-62059 Level 3 Est. Patient 08:41:09 ASSISTANT STATISTICIAN Vishal Hui MD [facility] CPT-36133 Level 4 Est. Patient 10:19:35 ASSISTANT STATISTICIAN Vishal Hui MD [facility] CPT-63321 Level 3 Est. Patient 13:35:45 CDT Vishal Hui MD [facility] CPT-07926 Level 4 Est. Patient 10:08:37 CDT Vishal Hui MD [facility] CPT-59922 Level 3 Est. Patient 11:22:10 CDT Vishal Hui MD [facility] CPT-89679 Level 3 Est. Patient 11:03:32 CDT Sahara Rodriguez MD [facility]-57731 Level 3 Est. Patient 09:41:35 CDT Vishal Hui MD [facility] CPT-50167 Level 3 Est. Patient 12:00:41 CDT Neeraj Collins MD [facility]-74189 Level 3 Est. Patient 09:16:24 CDT Vishal Hui MD [facility] CPT-98332 Level 4 Est. Patient 13:59:09 CDT Neeraj Collins MD [facility]-89835 Level 3 Est. Patient 15:19:43 CDT Renzo Thornton DO [facility] CPT-70336 Level 3 Est. Patient 18:10:26 CDT Sahara Rodriguez MD [facility]-76019 Level 3 Est. Patient 14:49:50 CDT Vishal Hui MD [facility] CPT-68958 Level 4 Est. Patient 18:41:46 CDT Neeraj Collins MD [facility] CPT-27049 Level 4 Est. Patient 09:18:38 ASSISTANT STATISTICIAN Vishal Hui MD [facility] CPT-22417 Level 3 Est. Patient 14:43:55 ASSISTANT STATISTICIAN Vishal Hui MD [facility] CPT-90864 Level 3 Est. Patient 15:26:33 ASSISTANT STATISTICIAN Sahara Rodriguez MD PhD [facility]-98993 Level 3 Est. Patient 10:32:14 ASSISTANT STATISTICIAN Vishal Hui MD [facility] CPT-70703 Level 3 Est. Patient 15:12:52 ASSISTANT STATISTICIAN Vishal Hui MD [facility] CPT-68801 Level 4 Est. Patient 09:19:27 CDT Vishal Hui MD [facility] CPT-32342 Level 3 Est. Patient 15:53:00 CDT [facility] CPT-15543 Level 3 Est. Patient 15:50:30 CDT [facility] CPT-41498 Level 3 Est. Patient 16:55:24 CDT Vishal Hui MD [facility] Procedures Code Procedure Name Date Entry Date Standard Description CPT-82414 UA w micro - LAB USE ONLY 16:21:13 CDT CPT-70962 Wet Mount - LAB USE ONLY 16:21:13 CDT CPT-32080 First Vx - Ix admin for Medicare patients 14:37:47 CDT CPT-06474 Fluzone Preservative Free Intramuscular Suspension 14:37 :47 CDT CPT-00387 Abx/Therapy Injection 13:54:22 CDT CPT-06981 Abx/Therapy Injection 08:47:09 CDT CPT-52439 Abx/Therapy Injection 13:29:56 CDT CPT-53076 Abx/Therapy Injection 08:36:16 CDT CPT-05996 Wet Mount - LAB USE ONLY 17:44:58 CDT CPT-67529 UA w micro - LAB USE ONLY 17:44:58 CDT CPT-06690 CMP - LAB USE ONLY 17:44:58 CDT CPT-72224 Venipuncture Draw Fee 17:44:58 CDT CPT-71370 Cervical Min 4V - XRAY USE ONLY 09:01:40 CDT CPT-82166 Chest 2V Frontal and Lat - XRAY USE ONLY 11:06:31 CDT CPT-61038 EKG Trac and Interp - XRAY USE ONLY 11:31:43 CDT 08/26 CPT-J3420 Vitamin B12 1000mcg (Cyanocobalamin) 08:10:26 ASSISTANT STATISTICIAN 04/12 CPT-18540 Abx/Therapy Injection 08:10:26 ASSISTANT STATISTICIAN CPT-G0438 Initial Annual Wellness Exam 19:01:01 ASSISTANT STATISTICIAN CPT-J3420 Vitamin B12 1000mcg (Cyanocobalamin) 16:57:46 CDT 08/14 CPT-90773 Recombivax HB Injection Suspension 5 MCG/0.5ML 08:37:50 ASSISTANT STATISTICIAN CPT-16852 Immunization Single Admin 08:37:50 ASSISTANT STATISTICIAN CPT-J3420 Vitamin B12 1000mcg (Cyanocobalamin) 08:32:16 ASSISTANT STATISTICIAN 03/11 CPT-91542 Abx/Therapy Injection 08:32:16 ASSISTANT STATISTICIAN CPT-04896 Chest 2V Frontal and Lat 11:46:38 ASSISTANT STATISTICIAN CPT-02370 Venipuncture Draw Fee 09:12:45 ASSISTANT STATISTICIAN CPT-J3420 Vitamin B12 1000mcg (Cyanocobalamin) 08:50:15 ASSISTANT STATISTICIAN 02/08 CPT-54626 Abx/Therapy Injection 08:50:15 ASSISTANT STATISTICIAN CPT-Cryo Cryotherapy 10:19:35 ASSISTANT STATISTICIAN CPT-000 Give Appropriate Flu Vaccine 09:22:16 CDT CPT-J3420 Vitamin B12 1000mcg (Cyanocobalamin) 19:08:57 CDT 01/11 CPT-66925 Abx/Therapy Injection 19:08:57 CDT CPT-J3420 Vitamin B12 1000mcg (Cyanocobalamin) 08:19:08 CDT 12/11 CPT-06074 Abx/Therapy Injection 08:19:08 CDT CPT-J3420 Vitamin B12 1000mcg (Cyanocobalamin) 14:48:00 CDT 11/09 CPT-75964 Abx/Therapy Injection 14:47:59 CDT CPT-J3420 Vitamin B12 1000mcg (Cyanocobalamin) 08:34:04 CDT 10/09 CPT-07825 Abx/Therapy Injection 08:34:04 CDT CPT-J3420 Vitamin B12 1000mcg (Cyanocobalamin) 09:18:52 CDT 09/11 CPT-18373 Abx/Therapy Injection 09:18:52 CDT CPT-J3420 Vitamin B12 1000mcg (Cyanocobalamin) 08:35:44 CDT 09/04 CPT-15319 Abx/Therapy Injection 08:35:44 CDT CPT-65003 Immunization Single Admin 11:07:16 CDT CPT-09720 Hepatitis B adult IM 11:07:16 CDT CPT-J3420 Vitamin B12 1000mcg (Cyanocobalamin) 11:00:49 CDT 08/28 CPT-J1040 Depo Medrol 80 mg (Methyl Prednisolone Acetate) 11:00: 49 CDT CPT-37838 Abx/Therapy Injection 11:00:49 CDT CPT-J1040 Depo Medrol 80 mg (Methyl Prednisolone Acetate) 09:16: 23 CDT CPT-J3420 Vitamin B12 1000mcg (Cyanocobalamin) 08:27:05 CDT 08/20 CPT-28591 Abx/Therapy Injection 08:27:05 CDT CPT-16421 Recombivax HB Injection Suspension 5 MCG/0.5ML 10:00:41 CDT CPT-38628 Administration single or combination vaccine inc oral 10 :00:41 CDT CPT-91279 Sono transvag pelvis non OB uterus ovaries cervix 16:36: 57 CDT CPT-79975 LS spine comp w obliq 09:50:55 ASSISTANT STATISTICIAN CPT-22369 Abd compl w upright 09:50:55 ASSISTANT STATISTICIAN CPT-J1100 Decadron 4mg (Dexamethasone) 15:51:24 ASSISTANT STATISTICIAN CPT-J1030 Depo Medrol 40 mg (Methyl Prednisolone Acetate) 15:51: 24 ASSISTANT STATISTICIAN CPT-11995 Abx/Therapy Injection 15:51:24 ASSISTANT STATISTICIAN CPT-J1100 Decadron 4mg (Dexamethasone) 15:26:33 ASSISTANT STATISTICIAN CPT-J1030 Depo Medrol 40 mg (Methyl Prednisolone Acetate) 15:26: 33 ASSISTANT STATISTICIAN CPT-85078 Sono retroperitoneal complete kidneys and bladder 17:15: 30 CDT CPT-41546 Abd compl w upright 16:09:25 CDT CPT-J1100 Decadron 8mg (Dexamethasone) 17:07:57 CDT CPT-24517 Abx/Therapy Injection 17:07:57 CDT CPT-J1100 Decadron 8mg (Dexamethasone) 16:55:24 CDT CPT-60934 Chest 2V Frontal and Lat 16:32:44 CDT
--- OUTSIDE RECORDS SUMMARY | 2016-11-04 13:31 | XMS REPORT ---
Author Author [employer] [facility] Medical Staff Organization [facility] [employer] [facility] Address [address] [place] [id number] Phone [phone] Summary purpose TRANSITION OF CARE AUTO GENERATION [...] Relevant diagnostic tests and/or laboratory data RESULTS Chemistry [id number]:35:00 Result Normal Range Units Sodium 139 134-145 mEq/l Potassium 3.7 3.5-5.1 mEq/l Chloride 106 98-107 mEq/l CO2 25.9 22-28 mEq/l Glucose 96 70-105 mg/dl BUN 13 7-18 mg/dl Creatinine 0.88 0.6-1.0 mg/dl Calcium 9.2 8.4-10.2 mg/dl Osmolality L 277.5 280-300 mOsm/L Anion GAP L 7.1 8-16 BUN/Creatinine Ratio 14.8 10-20 Estimated GFR 77 >=60 mL/min/1.7 History of procedures No procedures recorded for [...]
--- OUTSIDE RECORDS SUMMARY | 2016-11-04 13:34 | XMS REPORT | Clinical Summary ---
Author Author Admin, [facility] Organization [facility] [employer] Address Unknown Phone Unavailable Allergies, Adverse Reactions, [...] Abnormality of gait Lipoma 214.9 Resolved Albert Cadlera MD Lipoma, unspecified site Abdominal pain, RUQ [...] Ahmet Carbajal MD Generalized anxiety disorder Compliance Monitor well woman exam V72.31 Resolved Suzan Boo [...] Dysuria 788.1 Active Suzan Boo APRN Dysuria Prediabetes 790.29 Active Maude HADDAD Other abnormal glucose BMI 40-44.9 adult V85.41 Active Maude HADDAD Body Mass Index 40.0-44.9, adult Anxiety Disorder ICD-300.00 Inactive Vishal Hui MD [...] Inactive Vishal Hui MD Abscess, skin ICD-682.9 Jim Hui [...] for closed fracture ICD-823.01 Inactive Suzan Boo FRYLINE ATTENDANT Vaginal discharge ICD-623.5 Inactive Suzan Boo FRYLINE ATTENDANT DYSURIA ICD-788.1 Inactive Suzan Boo FRYLINE ATTENDANT Cellulitis and abscess of breast ICD-611.0 Inactive Ahmet Carbajal MD Nondisplaced transverse fracture of shaft of left fibula, subsequent encounter for closed fracture with routine healing Inactive Suzan Boo FRYLINE ATTENDANT Bronchitis, acute ICD-466.0 Inactive Ahmet Carbajal MD Compliance Monitor well woman exam ICD-V72.31 Inactive Suzan Boo FRYLINE ATTENDANT Bronchitis, acute with mild bronchospasm ICD-466.0 Inactive Suzan Boo FRYLINE ATTENDANT Tracheitis ICD-464.10 Inactive Suzan Boo FRYLINE ATTENDANT Impetigo ICD-684 Inactive Suzan Boo FRYLINE ATTENDANT Furuncle of buttock ICD-680.5 Inactive Suzan Boo FRYLINE ATTENDANT Vaginal irritation ICD-623.9 Inactive Suzan Boo FRYLINE ATTENDANT Scalding pain on urination ICD-788.1 Inactive Suzan Boo FRYLINE ATTENDANT Abdominal pain, right upper quadrant ICD-789.01 Inactive Suzan Boo FRYLINE ATTENDANT Dark urine ICD-791.9 Inactive Suzan Boo APRN Preop exam ICD-V72.84 Inactive Suzan Boo APRN Medication List Medication Instructions Start Date Stop Date Generic Name ND Status Provider Patient Instruction METFORMIN HCL 500 MG [id number] one a day for a week, then 2 a day METFORMIN HCL [id number] Active Malharvey Zigledenilson HADDAD Active NYSTATIN 372177 UNIT/GM CREA apply three times a day to yeast rash NYSTATIN 10748132244 No Longer Active Maliheh Ziglari CELL REPAIRER Active BACTRIM DS 800-160 MG TABS 1 twice a day SULFAMETHOXAZOLE-TRIMETHOPRIM 07902926037 No Longer Active Maliheh Ziglari CELL REPAIRER Active MUPIROCIN 2 % OINT apply twice a day MUPIROCIN 10990460532 Active Suzan Boo APRN Active [id number] 50-325-40 MG TABS 1 to 2 four times a day as needed for headache [id number] 28876260483 Active Suzan Boo APRN Active METOCLOPRAMIDE HCL 10 MG TABS 1 two times as needed for nausea and headaches METOCLOPRAMIDE HCL 94704596466 Active Meena Ortiz MA Active AMITIZA 24 MCG ORAL CAPS one capsule twice daily LUBIPROSTONE 26103623314 Active Suzan Boo APRN Active MIRALAX ORAL POWD 17GMS DAILY IN WATER POLYETHYLENE GLYCOL 3350 06077910906 No Longer Active Suzan Boo APRN Active LACTULOSE 10 GM/15ML ORAL SOLN 30mL oral BID for IBS-C LACTULOSE 74594027145 No Longer Active Suzan Boo APRN Active BACTRIM DS 800-160 MG TAB Take one (1) tablet by mouth twice a day for 5 days TRIMETHOPRIM-SULFAMETHOXAZOLE 10430250367 No Longer Active Suzan Boo APRN Active MUPIROCIN 2 % OINT apply twice a day MUPIROCIN 01207448111 No Longer Active Suzan Boo APRN Active BACTRIM DS 800-160 MG TABS 1 twice a day SULFAMETHOXAZOLE-TRIMETHOPRIM 06771919767 No Longer Active Suzan Boo APRN Active DIFLUCAN 150 MG TABS 1 by mouth for yeast FLUCONAZOLE 11527903045 No Longer Active Suzan Boo APRN Active LINZESS 290 MCG ORAL CAPS 1 tab 30 min prior to first meal each day. LINACLOTIDE 30125131208 No Longer Active Sheila Calderon LPN Active AMITIZA 8 MCG ORAL CAPS 1 tab BID LUBIPROSTONE 20867168445 No Longer Active Lynda Xiao LPN Active TESSALON PERLES 100 MG CAPS 1 three times a day as needed for cough BENZONATATE 69954472310 No Longer Active Suzan Boo APRN Active BACTRIM DS 800-160 MG TABS 1 twice a day SULFAMETHOXAZOLE-TRIMETHOPRIM 92796719812 No Longer Active Suzan Boo APRN Active DIFLUCAN 150 MG TABS 1 by mouth for yeast FLUCONAZOLE 56435713334 No Longer Active Suzan Boo APRN Active EQ NICOTINE 21 MG/24HR TRANS PT24 Apply daily to stop smoking NICOTINE 96902587029 No Longer Active Suzan Boo APRN Active PREDNISONE 10 MG TABS 2 daily for 5 days then 1 daily for 5 days PREDNISONE 34233971612 No Longer Active Suzan Boo APRN Active LEVAQUIN 500 MG TABS 1 daily for infection LEVOFLOXACIN 21969567077 No Longer Active Suzan Boo APRN Active TROPICAMIDE 0.5 % OPHTH SOLN 1 drop PRN eye spasms TROPICAMIDE 51755923850 No Longer Active Suzan Boo APRN Active PREDNISONE 20 MG TAB 1 tablet daily x 4 days PREDNISONE 59561526153 No Longer Active Suzan Boo APRN Active ACETAMINOPHEN-CODEINE 120-12 MG/5ML SOLN 5 ml by mouth every 4-6 hours if needed for cough ACETAMINOPHEN-CODEINE 87805585136 No Longer Active Suzan Boo APRN Active KEFLEX 500 MG CAP 1 po qid CEPHALEXIN 05846390395 No Longer Active Suzan Boo APRN Active FLOVENT HFA 110 MCG/ACT AERO 2 puffs inhaled b.i.d. FLUTICASONE PROPIONATE HFA 51996630294 Active Renzo Thornton DO Active RISPERDAL 4 MG ORAL TABS 1 tab at bedtime RISPERIDONE 35612813312 Active Samantha WAGNERA Active ZOFRAN 4 MG TABS 1 po q6hr PRN Nausea ONDANSETRON HCL No Longer Active Suzan Boo APRN Active FLUTICASONE PROPIONATE 50 MCG/ACT SUSP 2 sprays each nostril daily before bed. FLUTICASONE PROPIONATE 04476785912 No Longer Active Suzan Boo APRN Active ASPIRIN 325 MG ORAL TABS 1 tab q.d ASPIRIN 42887517800 No Longer Active Suzan Boo APRN Active HALOPERIDOL 10 MG ORAL TABS 1 tab q.d HALOPERIDOL 38355000276 No Longer Active Suzan Boo APRN Active GUAIFENESIN-CODEINE 100-10 MG/5ML SYRP 5ml every 4 to 6 hours as needed for cough GUAIFENESIN-CODEINE 48943655214 No Longer Active Suzan Boo APRN Active ZITHROMAX Z-EARNEST 250 MG TABS 2 today and then 1 daily for 4 days AZITHROMYCIN 31883129772 No Longer Active Suzan Boo APRN Active CLONAZEPAM 1 MG ORAL TABS 1 twice a day and an additional 1 tablet every other day as needed for pseudoseizures or anxiety CLONAZEPAM 00225095386 Active Suzan Boo APRN Active HYDROCODONE-ACETAMINOPHEN 5-325 MG ORAL TABS 1 tab two times a day HYDROCODONE-ACETAMINOPHEN 13835094182 No Longer Active Ahmet Carbajal MD Active LAMICTAL 100 MG ORAL TABS 1 tab 2 times qd. LAMOTRIGINE 33559233200 Active Ahmet Carbajal MD Active PREDNISONE 20 MG TABS 2 daily for 5 days then 1 daily for 5 days PREDNISONE 06047650133 No Longer Active Ahmet Carbajal MD Active FLUTICASONE PROPIONATE 50 MCG/ACT SUSP 1 to 2 sprays each nostril daily for allergies FLUTICASONE PROPIONATE 87454175543 Active Tila Valenzuela Active BENADRYL 25 MG CAP 4 po at bedtime for insomnia DIPHENHYDRAMINE HCL 31035482733 No Longer Active Ahmet Carbajal MD Active ADVAIR DISKUS 250-50 MCG/DOSE INH AEPB 1 puff twice a day for asthma FLUTICASONE-SALMETEROL 20345689535 No Longer Active Ahmet Carbajal MD Active KLONOPIN 1 MG ORAL TABS 1 tab po TID CLONAZEPAM 50480733322 No Longer Active Ahmet Carbajal MD Active ABILIFY MAINTENA 400 MG IM SUSR 400mg injection every 26 days ARIPIPRAZOLE 29701504997 No Longer Active Ahmet Carbajal MD Active TRAMADOL HCL 50 MG TABS 1/2-1 tab TID PRN TRAMADOL HCL 84402240078 No Longer Active Ahmet Carbajal MD Active BACTRIM DS 800-160 MG TABS 1 twice a day SULFAMETHOXAZOLE- TRIMETHOPRIM 06672261473 No Longer Active Ahmet Carbajal MD Active PROAIR HFA 108 (90 BASE) MCG/ACT AERS 2 puffs four times a day as needed 2015 ALBUTEROL SULFATE 84678421547 Active Honey Hinton APRN Active MONISTAT 7 COMBO PACK WOODROW 100 & 2 MG-% (9GM) VAG KIT 1 applicatorful per vagina q pm x 7 MICONAZOLE NITRATE 98096627591 No Longer Active Ahmet Carbajal MD Active FLAGYL 500 MG TAB 1 tablet by mouth bid METRONIDAZOLE 73480554458 No Longer Active Ahmet Carbajal MD Active OXYCODONE HCL ER 10 MG ORAL T12A 1/2 tab by mouth every 4 hours prn OXYCODONE HCL 68850294554 No Longer Active Ahmet Carbajal MD Active METHYLPREDNISOLONE 4 MG ORAL TABS po daily METHYLPREDNISOLONE 94056385661 No Longer Active Ahmet Carbajal MD Active LEVOFLOXACIN 500 MG ORAL TABS po daily LEVOFLOXACIN 77575128552 No Longer Active Ahmet Carbajal MD Active VIIBRYD 10 MG ORAL TABS Take 1 tablet once a day VILAZODONE HCL 38716389504 No Longer Active Ahmet Carbajal MD Active TOPAMAX 50 MG ORAL TABS 1 tab twice daily TOPIRAMATE 55583099509 No Longer Active Ahmet Carbajal MD Active DICLOFENAC SODIUM 50 MG TBEC 1 tablet by mouth four times daily PRN Pain 2015 DICLOFENAC SODIUM 97560998331 No Longer Active Ahmet Carbajal MD Active ADZENYS XR-ODT 6.3 MG ORAL TBED 1 tab po daily for ADHD AMPHETAMINE 98498418397 No Longer Active Ahmet Carbajal MD Active CHANTIX 1 MG TABS 1 twice a day to help quit smoking VARENICLINE TARTRATE 32722332083 No Longer Active Dipika Burgos MD Active CHANTIX STARTING MONTH EARNEST 0.5 MG X 11 & 1 MG X 42 TABS take as directed 2015 VARENICLINE TARTRATE 53076012401 No Longer Active Dipika Burgos MD Active TESSALON PERLES 100 MG CAP 1 to 2 tablets by mouth 3 times daily as needed for cough BENZONATATE 67841309905 No Longer Active Luigi Martínez APRN Active IMITREX 50 MG ORAL TABS 0.5 po x 1 PRN Headache. May repeat dose x 1 in 2 hours if needed SUMATRIPTAN SUCCINATE 82493004225 Active TAMARA Casey Active HYDROCODONE-ACETAMINOPHEN 5-325 MG TABS 1 to 2 four times a day as needed for pain use until can be seen by specialist HYDROCODONE- ACETAMINOPHEN 80693608873 No Longer Active Vishal Hui MD Active PROAIR HFA 108 (90 BASE) MCG/ACT AERS 2 puffs four times a day as needed 2015 ALBUTEROL SULFATE 69041510404 No Longer Active Vishal Hui MD Active PREDNISONE 20 MG TABS 2 daily for 5 days then 1 daily for 5 days PREDNISONE 63727302448 No Longer Active Vishal Hui MD Active ZITHROMAX Z-EARNEST 250 MG TABS 2 today and then 1 daily for 4 days AZITHROMYCIN 40553674160 No Longer Active Vishal Hui MD Active DICLOFENAC POTASSIUM TABS Take 1 tablet twice a day (pt. is not sure of the dose.) DICLOFENAC POTASSIUM TABS 70844674998 No Longer Active Vishal Hui MD Active VERAPAMIL HCL ER 120 MG ORAL CR-TABS Take 1 tablet by mouth twice a day. VERAPAMIL HCL 83691016834 Active Vishal Hui MD Active FLAGYL 500 MG TAB 1 tablet by mouth bid METRONIDAZOLE 62036497989 No Longer Active Vishal Hui MD Active VALIUM 5 MG TAB Take 1-2 tablets daily DIAZEPAM 38657034058 No Longer Active Fabiola Johnson APRN Active METOPROLOL TARTRATE 25 MG ORAL TABS 1/2 tablet twice daily for heart rate and blood pressure METOPROLOL TARTRATE 77776089381 No Longer Active Fabiola Johnson APRN Active MIRALAX PACK 1 po qd PRN Constipation POLYETHYLENE GLYCOL 3350 50885105282 No Longer Active Ahmet Carbajal MD Active MINIPRESS 2 MG CAPS 4 cap po at night PRAZOSIN HCL 62558499992 No Longer Active Ahmet Carbajal MD Active PIROXICAM 20 MG CAPS 1 cap po qd PRN Pain PIROXICAM 23100356034 No Longer Active Ahmet Carbajal MD Active TRAMADOL HCL 50 MG TABS 1-2 po TID PRN Pain TRAMADOL HCL 33172971903 No Longer Active Ahmet Carbajal MD Active METOPROLOL TARTRATE 50 MG TAB 1 po bid METOPROLOL TARTRATE 14254527764 No Longer Active Ahmet Carbajal MD Active ABILIFY 15 MG ORAL TABS 1 tab daily ARIPIPRAZOLE 99042877531 No Longer Active Ahmet Carbajal MD Active PROZAC 20 MG ORAL CAPS 1 tab daily FLUOXETINE HCL 36793124189 No Longer Active Ahmet Carbajal MD Active AMBIEN 5 MG ORAL TABS 1 tab at bedtime ZOLPIDEM TARTRATE 90520635640 No Longer Active Ahmet Carbajal MD Active PREDNISONE 20 MG TAB 2 tabs daily for 4 days, 1 tab daily for 4 days, 1/2 tab daily for 4 days PREDNISONE 71436289833 No Longer Active Ahmet Carbajal MD Active KEFLEX 500 MG CAP 1 po TID x 10 days CEPHALEXIN 81245037355 No Longer Active Vishal Hui MD Active SAPHRIS 5 MG SUBL 1 po bid ASENAPINE MALEATE 40522700427 No Longer Active Luigi Martínez APRN Active LATUDA 80 MG TABS Take one by mouth daily LURASIDONE HCL 29897284834 No Longer Active Jillina Fralebron NORIEGA Active AMLODIPINE BESYLATE 5 MG TABS 1 tablet by mouth daily AMLODIPINE BESYLATE 44477152420 No Longer Active Jillina Fralebron FRYLINE ATTENDANT Active AMITRIPTYLINE HCL 100 MG TAB one at hs AMITRIPTYLINE HCL 81800023228 No Longer Active Vishal Hui MD Active TRAZODONE HCL 100 MG TAB take 1 at bedtime TRAZODONE HCL 50550254723 No Longer Active Vishal Hui MD Active VYVANSE 40 MG CAPS 1 daily, LISDEXAMFETAMINE DIMESYLATE 21476323755 No Longer Active Vishal Hui MD Active IBUPROFEN 600 MG TAB 1 po TID PRN IBUPROFEN 87548439453 No Longer Active Vishal Hui MD Active PROZAC 20 MG CAP Take one by mouth daily FLUOXETINE HCL 96016238901 No Longer Active Vishal Hui MD Active BACTRIM DS 800-160 MG TABS 1 pill by mouth twice daily SULFAMETHOXAZOLE-TRIMETHOPRIM 56169562613 No Longer Active Sahara Rodriguez MD PhD Active DIFLUCAN 150 MG TAB 1 tablet by mouth daily FLUCONAZOLE 65155459181 No Longer Active Vishal Hui MD Active TIZANIDINE HCL 4 MG TABS 1 po q6hr PRN Muscle Spasm/Back Pain TIZANIDINE HCL 58933030409 Active TAMARA Casey Active CLINDAMYCIN HCL 150 MG CAPS 1 four times a day CLINDAMYCIN HCL 86980177182 No Longer Active Neeraj Collins MD Active KEFLEX 500 MG ORAL CAPS 1 cap QID by mouth CEPHALEXIN 90535609419 No Longer Active Neeraj Collins MD Active DIFLUCAN 150 MG TABS 1 pill every other day x 2 doses FLUCONAZOLE 73130199765 No Longer Active Sahara Rodriguez MD PhD Active MELATONIN 3 MG CAPS 2 po q hs MELATONIN 35603401676 No Longer Active Sahara Rodriguez MD PhD Active MULTIVITAMINS CAPS Take one by mouth daily MULTIPLE VITAMIN 98943513643 No Longer Active Sahara Rodriguez MD PhD Active BACTRIM DS 800-160 MG TAB 1 tab by mouth twice daily TRIMETHOPRIM-SULFAMETHOXAZOLE 46148191233 No Longer Active Sahara Rodriguez MD PhD Active [facility] PROBIOTIC ORAL CHEW 2 daily po PROBIOTIC PRODUCT 73307771951 No Longer Active Sahara Rodriguez MD PhD Active BACTRIM DS 800-160 MG TABS 1 po BID x 7 days SULFAMETHOXAZOLE-TRIMETHOPRIM 37134175562 No Longer Active Vishal Hui MD Active CHANTIX STARTING MONTH EARNEST 0.5 MG X 11 & 1 MG X 42 TABS 0.5mg daily for 3 days , then 0.5mg BID for 4 days, then 1mg BID VARENICLINE TARTRATE 32175815871 No Longer Active TAMARA Gray Active VERAPAMIL HCL CR 120 MG TAB CR 1 po bid VERAPAMIL HCL 78828154585 No Longer Active Vishal Hui MD Active METOPROLOL SUCCINATE 50 MG TB24 1 tablet by mouth daily METOPROLOL SUCCINATE 56864591181 No Longer Active Vishal Hui MD Active SAPHRIS 10 MG SUBL 1 tab po bid ASENAPINE MALEATE 44524185391 No Longer Active Vishal Hui MD Active LISINOPRIL 20 MG TABS 1 tab po qd LISINOPRIL 37474993133 No Longer Active Vishal Hui MD Active LATUDA 20 MG TABS Take one by mouth daily LURASIDONE HCL 96838859849 No Longer Active Vishal Hui MD Active TRAZODONE HCL 50 MG TABS 1/2 tab po qd prn for anxiety TRAZODONE HCL 93408786684 No Longer Active Vishal Hui MD Active OMEPRAZOLE 20 MG TBEC 1 po q a.m. 30min prior to first food intake OMEPRAZOLE 85518051280 Active TAMARA Casey Active RANITIDINE HCL 150 MG CAPS 1 twice a day RANITIDINE HCL 64610910210 Active Lynda Xiao LPN Active LINZESS 290 MCG CAPS Take one by mouth daily LINACLOTIDE 82816903074 No Longer Active Vishal Hui MD Active SAPHRIS 5 MG SUBL 1 tab po qd ASENAPINE MALEATE 64607259498 No Longer Active Vishal Hui MD Active ZALEPLON 10 MG CAPS 1 cap po every other night ZALEPLON 59484855550 No Longer Active Vishal Hui MD Active LYRICA 50 MG CAPS 1 tab po TID PREGABALIN 11687414321 No Longer Active Vishal Hui MD Active LORATADINE 10 MG TABS 1 tab po qd LORATADINE 51691696410 No Longer Active Vishal Hui MD Active VERAPAMIL HCL ER 180 MG CR-TABS 1 tab po bid VERAPAMIL HCL 86397069635 No Longer Active Vishal Hui MD Active MIRALAX POWD 1 capfull once daily POLYETHYLENE GLYCOL 3350 19096969261 No Longer Active Vishal Hui MD Active PREDNISONE 20 MG TABS 1 tab po qd PREDNISONE 50360785579 No Longer Active Renzo Thornton DO Active LEVOFLOXACIN 500 MG TABS 1 tab po qd LEVOFLOXACIN 90440602292 No Longer Active Renzo Thornton DO Active BUSPIRONE HCL 15 MG TABS 1 tab po TID BUSPIRONE HCL 62744288760 No Longer Active Renzo Thornton DO Active BENZTROPINE MESYLATE 1 MG TABS 1 tab po qd BENZTROPINE MESYLATE 33178828727 No Longer Active Renzo Thornton DO Active ATENOLOL 25 MG TABS 1 tab po qd ATENOLOL 99375218349 No Longer Active Renzo Thornton DO Active ESCITALOPRAM OXALATE 20 MG TABS 1 tab po qd ESCITALOPRAM OXALATE 17463847412 No Longer Active Renzo Thorntno DO Active ADVAIR DISKUS 250-50 MCG/DOSE AEPB 1 puff BID FLUTICASONE-SALMETEROL 89227306247 No Longer Active Renzo Thornton DO Active PREDNISONE 20 MG TAB 2 tabs daily for 3 days, 1 tab daily for 3 days, 1/2 tab daily for 2 days PREDNISONE 69190231120 No Longer Active Vishal Hui MD Active CEFDINIR 300 MG CAPS by mouth twice a day CEFDINIR 07454927008 No Longer Active Vishal Hui MD Active LANSOPRAZOLE 30 MG CPDR 1 cap po qd LANSOPRAZOLE 52419948981 No Longer Active Vishal Hui MD Active BACLOFEN 20 MG TABS 1 tab po tid BACLOFEN 24785022869 No Longer Active Vishal Hui MD Active ADVAIR DISKUS 250-50 MCG/DOSE AEPB 1 puff BID ADVAIR DISKUS 250-50 MCG/DOSE AEPB FLUTICASONE-SALMETEROL Inactive ESCITALOPRAM OXALATE 20 MG TABS 1 tab po qd ESCITALOPRAM OXALATE 20 MG TABS 966115 ESCITALOPRAM OXALATE Inactive ATENOLOL 25 MG TABS 1 tab po qd ATENOLOL 25 MG TABS 915680 ATENOLOL Inactive BENZTROPINE MESYLATE 1 MG TABS 1 tab po qd BENZTROPINE MESYLATE 1 MG TABS 858078 BENZTROPINE MESYLATE Inactive BUSPIRONE HCL 15 MG TABS 1 tab po TID BUSPIRONE HCL 15 MG TABS 367810 BUSPIRONE HCL Inactive LEVOFLOXACIN 500 MG TABS 1 tab po qd LEVOFLOXACIN 500 MG TABS 001524 LEVOFLOXACIN Inactive PREDNISONE 20 MG TABS 1 tab po qd PREDNISONE 20 MG TABS 290653 PREDNISONE Inactive MIRALAX POWD 1 capfull once daily MIRALAX POWD 337938 POLYETHYLENE GLYCOL 3350 Inactive VERAPAMIL HCL ER 180 MG CR-TABS 1 tab po bid VERAPAMIL HCL ER 180 MG CR-TABS VERAPAMIL HCL Inactive LORATADINE 10 MG TABS 1 tab po qd LORATADINE 10 MG TABS 411137 LORATADINE Inactive LYRICA 50 MG CAPS 1 tab po TID LYRICA 50 MG CAPS PREGABALIN Inactive ZALEPLON 10 MG CAPS 1 cap po every other night ZALEPLON 10 MG CAPS 325776 ZALEPLON Inactive SAPHRIS 5 MG SUBL 1 tab po qd SAPHRIS 5 MG SUBL ASENAPINE MALEATE Inactive TRAZODONE HCL 50 MG TABS 1/2 tab po qd prn for anxiety TRAZODONE HCL 50 MG TABS 630281 TRAZODONE HCL Inactive LATUDA 20 MG TABS Take one by mouth daily LATUDA 20 MG TABS LURASIDONE HCL Inactive LISINOPRIL 20 MG TABS 1 tab po qd LISINOPRIL 20 MG TABS 855856 LISINOPRIL Inactive SAPHRIS 10 MG SUBL 1 [...] twice daily BACTRIM DS 800-160 MG TAB 171667 TRIMETHOPRIM-SULFAMETHOXAZOLE Inactive MULTIVITAMINS CAPS Take one by mouth daily MULTIVITAMINS CAPS MULTIPLE VITAMIN Inactive MELATONIN 3 MG CAPS 2 po q hs MELATONIN 3 MG CAPS 19950526 MELATONIN Inactive KEFLEX 500 MG ORAL CAPS 1 cap QID by mouth KEFLEX 500 MG ORAL CAPS 908389 CEPHALEXIN Inactive CLINDAMYCIN HCL 150 MG CAPS 1 four times a day CLINDAMYCIN HCL 150 MG CAPS 290858 CLINDAMYCIN HCL Inactive DIFLUCAN 150 MG TAB 1 tablet by mouth daily DIFLUCAN 150 MG TAB 400683 FLUCONAZOLE Inactive PROZAC 20 MG CAP Take one by mouth daily PROZAC 20 MG CAP 857021 FLUOXETINE HCL Inactive IBUPROFEN 600 MG TAB 1 po TID PRN IBUPROFEN 600 MG TAB 561179 IBUPROFEN Inactive VYVANSE 40 MG CAPS 1 daily, VYVANSE 40 MG CAPS LISDEXAMFETAMINE DIMESYLATE Inactive TRAZODONE HCL 100 MG TAB take 1 at bedtime TRAZODONE HCL 100 MG TAB 599282 TRAZODONE HCL Inactive AMITRIPTYLINE HCL 100 MG TAB one at hs AMITRIPTYLINE HCL 100 MG TAB 148839 AMITRIPTYLINE HCL Inactive AMLODIPINE BESYLATE 5 MG TABS 1 tablet by mouth daily AMLODIPINE BESYLATE 5 MG TABS 175842 AMLODIPINE BESYLATE Inactive LATUDA 80 MG TABS Take one by mouth daily LATUDA 80 MG TABS LURASIDONE HCL Inactive SAPHRIS 5 MG SUBL 1 po bid SAPHRIS 5 MG SUBL ASENAPINE MALEATE Inactive PREDNISONE 20 MG TAB 2 tabs daily for 4 days, 1 tab daily for 4 days, 1/2 tab daily for 4 days PREDNISONE 20 MG TAB 381333 PREDNISONE Inactive AMBIEN 5 MG ORAL TABS 1 tab at bedtime AMBIEN 5 MG ORAL TABS 997804 ZOLPIDEM TARTRATE Inactive PROZAC 20 MG ORAL CAPS 1 tab daily PROZAC 20 MG ORAL CAPS 173760 FLUOXETINE HCL Inactive ABILIFY 15 MG ORAL TABS 1 tab daily ABILIFY 15 MG ORAL TABS 777253 ARIPIPRAZOLE Inactive METOPROLOL TARTRATE 50 MG TAB 1 po bid METOPROLOL TARTRATE 50 MG TAB 062763 METOPROLOL TARTRATE Inactive TRAMADOL HCL 50 MG TABS 1-2 po TID PRN Pain TRAMADOL HCL 50 MG TABS 708416 TRAMADOL HCL Inactive PIROXICAM 20 MG CAPS 1 cap po qd PRN Pain PIROXICAM 20 MG CAPS 243916 PIROXICAM Inactive MINIPRESS 2 MG CAPS 4 cap po at night MINIPRESS 2 MG CAPS 047095 PRAZOSIN HCL Inactive MIRALAX PACK 1 po qd PRN Constipation MIRALAX PACK 319491 POLYETHYLENE GLYCOL 3350 Inactive METOPROLOL TARTRATE 25 MG ORAL TABS 1/2 tablet twice daily for heart rate and blood pressure METOPROLOL TARTRATE 25 MG ORAL TABS 484395 METOPROLOL TARTRATE Inactive VALIUM 5 MG TAB Take 1-2 tablets daily VALIUM 5 MG TAB 139252 DIAZEPAM Inactive FLAGYL 500 MG TAB 1 tablet by mouth bid FLAGYL 500 MG TAB 899005 METRONIDAZOLE Inactive DICLOFENAC POTASSIUM TABS Take 1 tablet twice a day (pt. is not sure of the dose.) DICLOFENAC POTASSIUM TABS DICLOFENAC POTASSIUM TABS Inactive ZITHROMAX Z-EARNEST 250 MG TABS 2 today and then 1 daily for 4 days ZITHROMAX Z-EARNEST 250 MG TABS 0468689 AZITHROMYCIN Inactive PREDNISONE 20 MG TABS 2 daily for 5 days then 1 daily for 5 days PREDNISONE 20 MG TABS 655523 PREDNISONE Inactive PROAIR HFA 108 (90 BASE) MCG/ACT AERS 2 puffs four times a day as needed 2015 PROAIR HFA 108 (90 BASE) MCG/ACT AERS ALBUTEROL SULFATE Inactive HYDROCODONE-ACETAMINOPHEN 5-325 MG TABS 1 to 2 four times a day as needed for pain use until can be seen by specialist HYDROCODONE- ACETAMINOPHEN 5-325 MG TABS 474489 HYDROCODONE-ACETAMINOPHEN Inactive TESSALON PERLES 100 MG CAP 1 to 2 tablets by mouth 3 times daily as needed for cough TESSALON PERLES 100 MG CAP 580019 BENZONATATE Inactive CHANTIX STARTING MONTH EARNEST 0.5 [...] Pain 2015 DICLOFENAC SODIUM 50 MG TBEC 306404 DICLOFENAC SODIUM Inactive TOPAMAX 50 MG ORAL TABS 1 tab twice daily TOPAMAX 50 MG ORAL TABS 292443 TOPIRAMATE Inactive VIIBRYD 10 MG ORAL TABS Take 1 tablet once a day VIIBRYD 10 MG ORAL TABS VILAZODONE HCL Inactive LEVOFLOXACIN 500 MG ORAL TABS po daily LEVOFLOXACIN 500 MG ORAL TABS 934579 LEVOFLOXACIN Inactive METHYLPREDNISOLONE 4 MG ORAL TABS po daily METHYLPREDNISOLONE 4 MG ORAL TABS 252463 METHYLPREDNISOLONE Inactive OXYCODONE HCL ER 10 MG ORAL T12A 1/2 tab by mouth every 4 hours prn OXYCODONE HCL ER 10 MG ORAL T12A OXYCODONE HCL Inactive FLAGYL 500 MG TAB 1 tablet by mouth bid FLAGYL 500 MG TAB 028500 METRONIDAZOLE Inactive MONISTAT 7 COMBO PACK WOODROW 100 & 2 MG-% (9GM) VAG KIT 1 applicatorful per vagina q pm x 7 MONISTAT 7 COMBO PACK WOODROW 100 & 2 MG-% (9GM) VAG KIT MICONAZOLE NITRATE Inactive BACTRIM DS 800-160 MG TABS 1 twice a day BACTRIM DS 800-160 MG TABS 910911 SULFAMETHOXAZOLE-TRIMETHOPRIM Inactive TRAMADOL HCL 50 MG TABS 1/2-1 tab TID PRN TRAMADOL HCL 50 MG TABS 604150 TRAMADOL HCL Inactive ABILIFY MAINTENA 400 MG IM SUSR 400mg injection every 26 days ABILIFY MAINTENA 400 MG IM SUSR ARIPIPRAZOLE Inactive KLONOPIN 1 MG ORAL TABS 1 tab po TID KLONOPIN 1 MG ORAL TABS 996034 CLONAZEPAM Inactive ADVAIR DISKUS 250-50 MCG/DOSE INH AEPB 1 puff twice a day for asthma ADVAIR DISKUS 250-50 MCG/DOSE INH AEPB FLUTICASONE- SALMETEROL Inactive BENADRYL 25 MG CAP 4 po at bedtime for insomnia BENADRYL 25 MG CAP DIPHENHYDRAMINE HCL Inactive PREDNISONE 20 MG TABS 2 daily for 5 days then 1 daily for 5 days PREDNISONE 20 MG TABS 360558 PREDNISONE Inactive HYDROCODONE-ACETAMINOPHEN 5-325 MG ORAL TABS 1 tab two times a day HYDROCODONE-ACETAMINOPHEN 5-325 MG ORAL TABS [id number] HYDROCODONE-ACETAMINOPHEN Inactive ZITHROMAX Z-EARNEST 250 MG TABS 2 today and then 1 daily for 4 days ZITHROMAX Z-EARNEST 250 MG TABS [id number] AZITHROMYCIN Inactive GUAIFENESIN-CODEINE 100-10 MG/5ML SYRP 5ml every 4 to 6 hours as needed for cough GUAIFENESIN-CODEINE 100-10 MG/5ML SYRP [id number] GUAIFENESIN-CODEINE Inactive HALOPERIDOL 10 MG ORAL TABS 1 tab q.d HALOPERIDOL 10 MG ORAL TABS [id number] HALOPERIDOL Inactive ASPIRIN 325 MG ORAL TABS 1 tab q.d ASPIRIN 325 MG ORAL TABS 412312 ASPIRIN Inactive FLUTICASONE PROPIONATE 50 MCG/ACT SUSP 2 sprays each nostril daily before bed. FLUTICASONE PROPIONATE 50 MCG/ACT SUSP 1001016 FLUTICASONE PROPIONATE Inactive ZOFRAN 4 MG TABS 1 po q6hr PRN Nausea ZOFRAN 4 MG TABS 106214 ONDANSETRON HCL Inactive KEFLEX 500 MG CAP 1 po qid KEFLEX 500 MG CAP 366003 CEPHALEXIN Inactive ACETAMINOPHEN-CODEINE 120-12 MG/5ML SOLN 5 ml by mouth every 4-6 hours if needed for cough ACETAMINOPHEN-CODEINE 120-12 MG/5ML SOLN 835034 ACETAMINOPHEN-CODEINE Inactive PREDNISONE 20 MG TAB 1 tablet daily x 4 days PREDNISONE 20 MG TAB 770020 PREDNISONE Inactive TROPICAMIDE 0.5 % OPHTH SOLN 1 drop PRN eye spasms TROPICAMIDE 0.5 % OPHTH SOLN 177450 TROPICAMIDE Inactive LEVAQUIN 500 MG TABS 1 daily for infection LEVAQUIN 500 MG TABS 728121 LEVOFLOXACIN Inactive PREDNISONE 10 MG TABS 2 daily for 5 days then 1 daily for 5 days PREDNISONE 10 MG TABS 204497 PREDNISONE Inactive EQ NICOTINE 21 MG/24HR TRANS [...] for cough TESSALON PERLES 100 MG CAPS 547081 BENZONATATE Inactive AMITIZA 8 MCG ORAL CAPS 1 tab BID AMITIZA 8 MCG ORAL CAPS LUBIPROSTONE Inactive LINZESS 290 MCG ORAL CAPS 1 tab 30 min prior to first meal each day. LINZESS 290 MCG ORAL CAPS LINACLOTIDE Inactive DIFLUCAN 150 MG TABS 1 by mouth for yeast DIFLUCAN 150 MG TABS 082780 FLUCONAZOLE Inactive BACTRIM DS 800-160 MG TABS 1 twice a day BACTRIM DS 800-160 MG TABS 19820521 SULFAMETHOXAZOLE-TRIMETHOPRIM Inactive MUPIROCIN 2 % OINT apply twice a day MUPIROCIN 2 % OINT 207712 MUPIROCIN Inactive BACTRIM DS 800-160 MG TAB Take one (1) tablet by mouth twice a day for 5 days BACTRIM DS 800-160 MG TAB 19820521 TRIMETHOPRIM- SULFAMETHOXAZOLE Inactive LACTULOSE 10 GM/15ML ORAL SOLN 30mL oral BID for IBS-C LACTULOSE 10 GM/15ML ORAL SOLN 939266 LACTULOSE Inactive MIRALAX ORAL POWD 17GMS DAILY IN WATER MIRALAX ORAL POWD 884573 POLYETHYLENE GLYCOL 3350 Inactive BACTRIM DS 800-160 MG TABS 1 twice a day BACTRIM DS 800-160 MG TABS 19820521 SULFAMETHOXAZOLE-TRIMETHOPRIM Inactive NYSTATIN 236573 UNIT/GM CREA apply three times a day to yeast rash NYSTATIN 589776 UNIT/GM CREA 117104 NYSTATIN Inactive CEFDINIR 300 MG CAPS by mouth twice a day CEFDINIR 300 MG CAPS 491645 CEFDINIR Inactive PREDNISONE 20 MG TAB 2 tabs daily for 3 days, 1 tab daily for 3 days, 1/2 tab daily for 2 days PREDNISONE 20 MG TAB 800744 PREDNISONE Inactive BACTRIM DS 800-160 MG TABS 1 po BID x 7 days BACTRIM DS 800-160 MG TABS 19820521 SULFAMETHOXAZOLE-TRIMETHOPRIM Inactive DIFLUCAN 150 MG TABS 1 pill every other day x 2 doses DIFLUCAN 150 MG TABS 522898 FLUCONAZOLE Inactive BACTRIM DS 800-160 MG TABS 1 pill by mouth twice daily BACTRIM DS 800-160 MG TABS 19820521 SULFAMETHOXAZOLE-TRIMETHOPRIM Inactive KEFLEX 500 MG CAP 1 po TID x 10 days KEFLEX 500 MG CAP 566812 CEPHALEXIN Inactive Advance Directives Directive Description Start Date DISCUSSED WITH PATIENT -- NO DECISION MADE Vital Signs Date Name Value Unit Range Description blood pressure, diastolic 80 mm[Hg] BP mcnally blood pressure, systolic 124 mm[Hg] BP sys height E&M 65 [in_us] Bdy height pulse rate E&M 72 /min Heart rate weight E&M 262 [lb_av] Weight Measured blood pressure, diastolic 94 mm[Hg] BP mcnally [...] % 11.0-15.0 platelet count 443 THOUSAND/UL 10*3/mm3 564-034 9684/03/01 mean platelet volume 8.2 fL 7.5-12.5 leukocyte [...] % 11.0-15.0 platelet count 349 THOUSAND/UL 10*3/mm3 426-283 5272/04/12 mean platelet volume 8.4 fL 7.5-12.5 Lab Report: CBC W/DIFF, Comp. Metabolic Panel, HGBA1C, Magnesium - Chemistry sodium, serum 141 mmol/L 088-818 1254/07/24 carbon dioxide, venous blood 27.8 mmol/L 21.0-32.0 [...] 369 10^3/MM^3 10*3/mm3 142-424 Lab Report: Chlamydia/GC APTIMA/95981 - Lab chlamydia DNA probe NOT DETECTED NOT DETECTED Lab Report: Chlamydia/GC APTIMA/05941 - Microbiology Neisseria gonorrhoeae DNA probe NOT DETECTED NOT DETECTED Lab Report: Chlamydia/GC APTIMA/36441, Urinalysis, Complete, with Reflex ... - Lab chlamydia DNA probe NOT DETECTED NOT DETECTED Lab Report: Chlamydia/GC APTIMA/00739, Urinalysis, Complete, with Reflex ... - Microbiology Neisseria gonorrhoeae DNA probe NOT DETECTED NOT DETECTED Lab Report: Chlamydia/GC APTIMA/40473, Urinalysis, Complete, with Reflex ... - Urinalysis microalbumin/total urine volume 2 mg/L Units converted. See lab report for original value. microalbumin/creatinine ratio, urine 9 MCG/MG CREAT mg/L <30 Lab Report: Comp. Metabolic Panel - Chemistry sodium, serum 140 mmol/L 663-456 6592/06/28 carbon dioxide, venous blood 23.8 mmol/L 21.0-32.0 [...] negative Encounters Code Encounter Date Provider Facility CPT-21431 Level 5 Est. Patient 12:01:37 CDT Maude Miranda [facility] CPT-89744 Level 3 Est. [facility]:36[facility] 10:53[facility]17 [facility] Level 3 Est. Patient 11:08:35 [facility] Level 3 Est. Patient 15:55:20 CDT Suzan Boo [facility] CPT-61765 Level 4 Est. Patient 10:49:34 CDT Suzan Boo [facility] CPT-94843 Level 3 Est. [facility] 10[facility]00:[facility] Level 3 Est. Patient 10:29:30 CDT Suzan Boo [facility] CPT-88239 Level 3 Est. Patient 11:04:38 CDT Renzo Thornton [facility]-78233 Level 3 Est. Patient 11:15:58 PODIATRY PROFESSOR Renzo Thornton [facility]-18951 Level 3 Est. Patient 15:28:23 PODIATRY PROFESSOR Suzan Boo [facility]-70614 Level 4 Est. Patient 10:20:54 PODIATRY PROFESSOR Suzan Boo [facility] CPT-23601 Level 3 Est. Patient 11:47:37 PODIATRY PROFESSOR Ahmet Carbajal MD [facility]-57005 Level 3 Est. Patient 10:40:11 PODIATRY PROFESSOR Ahmet Carbajal MD [facility] CPT-59934 Level 3 Est. Patient 15:07:06 PODIATRY PROFESSOR Neeraj Collins MD [facility] CPT-13007 Level 4 Est. Patient 14:45:00 PODIATRY PROFESSOR Ahmet Carbajal MD [facility]-68314 Level 3 Est. Patient 13:59:59 CDT Luigi Martínez [facility] CPT-36234 Level 3 Est. Patient 18:18:53 CDT Neeraj Collins MD [facility] CPT-63317 Level 3 Est. Patient 15:50:44 CDT Vishal Hui MD [facility]-94635 Level 3 Est. Patient 11:36:17 CDT Ahmet Carbajal MD [facility] CPT-84563 Level 3 Est. Patient 13:29:16 CDT Vishal Hui MD [facility] CPT-74897 Level 3 Est. Patient 14:27:52 CDT Neeraj Collins MD [facility] CPT-30570 Level 3 Est. Patient 08:56:03 CDT Luigi Martínez [facility] CPT-04799 Level 4 Est. Patient 12:11:48 CDT Fabiola Johnson [facility] CPT-99244 Level 3 New Patient 16:53:37 CDT Albert Caldera MD [facility] CPT-38838 Level 3 Est. Patient 11:25:49 CDT Renzo Thornton DO [facility] CPT-89975 Level 3 Est. Patient 15:22:01 CDT Ahmet Carbajal MD [facility] CPT-89195 Level 4 Est. Patient 09:00:51 PODIATRY PROFESSOR Vishal Hui MD [facility] CPT-45958 Level 3 Est. Patient 11:37:33 PODIATRY PROFESSOR Vishal Hui MD [facility] CPT-57355 Level 3 Est. Patient 08:41:09 PODIATRY PROFESSOR Vishal Hui MD [facility] CPT-54898 Level 4 Est. Patient 10:19:35 PODIATRY PROFESSOR Vishal Hui MD [facility] CPT-19617 Level 3 Est. Patient 13:35:45 CDT Vishal Hui MD [facility] CPT-19156 Level 4 Est. Patient 10:08:37 CDT Vishal Hui MD [facility] CPT-58156 Level 3 Est. Patient 11:22:10 CDT Vishal Hui MD [facility] CPT-01189 Level 3 Est. Patient 11:03:32 CDT Sahara Rodriguez MD, PhD [facility] CPT-76364 Level 3 Est. Patient 09:41:35 CDT Vishal Hui MD [facility] CPT-06022 Level 3 Est. Patient 12:00:41 CDT Neeraj Collins MD [facility] CPT-54988 Level 3 Est. Patient 09:16:24 CDT Vishal Hui MD [facility] CPT-34142 Level 4 Est. Patient 13:59:09 CDT Neeraj Clolins MD [facility] CPT-54186 Level 3 Est. Patient 15:19:43 CDT Renzo Thornton DO [facility] CPT-79187 Level 3 Est. Patient 18:10:26 CDT Sahara Rodriguez MD [facility]-76550 Level 3 Est. Patient 14:49:50 CDT Vishal Hui MD [facility] CPT-97249 Level 4 Est. Patient 18:41:46 CDT Neeraj Collins MD [facility] CPT-95122 Level 4 Est. Patient 09:18:38 PODIATRY PROFESSOR Vishal Hui MD [facility] CPT-26368 Level 3 Est. Patient 14:43:55 PODIATRY PROFESSOR Vishal Hui MD [facility] CPT-97687 Level 3 Est. Patient 15:26:33 PODIATRY PROFESSOR Sahara Rodriguez MD PhD [facility] CPT-36715 Level 3 Est. Patient 10:32:14 PODIATRY PROFESSOR Vishal Hui MD [facility] CPT-52951 Level 3 Est. Patient 15:12:52 PODIATRY PROFESSOR Vishal Hui MD [facility] CPT-63897 Level 4 Est. Patient 09:19:27 CDT Vishal Hui MD [facility] CPT-10895 Level 3 Est. Patient 15:53:00 CDT Renzo Thornton DO [facility] CPT-43651 Level 3 Est. Patient 15:50:30 CDT Renzo Thornton DO [facility] CPT-04223 Level 3 Est. Patient 16:55:24 CDT Vishal Hui MD [facility] Procedures Code Procedure Name Date Entry Date Standard Description CPT-95634 UA Dip Auto (Floor Use Only) 11:36:47 CDT CPT-93925 Venipuncture Draw Fee 10:53:17 CDT CPT-81128 EKG Trac and Interp - XRAY USE ONLY 15:59:30 CDT 09/13 CPT-73196 Chest 1V Frontal - XRAY USE ONLY 15:59:30 CDT CPT-74483 Venipuncture Draw Fee 15:44:02 CDT CPT-68345 Venipuncture Draw Fee 08:41:12 CDT CPT-41510 Abd compl w upright - XRAY USE ONLY 10:27:59 CDT 06/28 CPT-01508 Smoking Cessation counseling 11:15:58 PODIATRY PROFESSOR CPT-G0439 [facility] Annual Wellness Exam 09:30:58 PODIATRY PROFESSOR CPT-60478 TSH - LAB USE ONLY 08:50:26 PODIATRY PROFESSOR CPT-40843 CBC - LAB USE ONLY 08:50:26 PODIATRY PROFESSOR CPT-50820 Venipuncture Draw Fee 08:50:26 PODIATRY PROFESSOR CPT-06611 Abx/Therapy Injection 17:34:30 PODIATRY PROFESSOR CPT-26055 Nexplanon Removal with Reinsertion 14:09:32 CDT CPT-J7307 Nexplanon (Implant) 14:09:32 CDT CPT-OV Office Visit 14:09:32 CDT CPT-21592 UA w micro - LAB USE ONLY 16:21:13 CDT CPT-46090 Wet Mount - LAB USE ONLY 16:21:13 CDT CPT-21544 First Vx - Ix admin for Medicare patients 14:37:47 CDT CPT-20775 Fluzone Preservative Free Intramuscular Suspension 14:37 :47 CDT CPT-30496 Abx/Therapy Injection 13:54:22 CDT CPT-59890 Abx/Therapy Injection 08:47:09 CDT CPT-29565 Abx/Therapy Injection 13:29:56 CDT CPT-95747 Abx/Therapy Injection 08:36:16 CDT CPT-02938 Wet Mount - LAB USE ONLY 17:44:58 CDT CPT-39402 UA w micro - LAB USE ONLY 17:44:58 CDT CPT-37672 CMP - LAB USE ONLY 17:44:58 CDT CPT-09071 Venipuncture Draw Fee 17:44:58 CDT CPT-86319 Cervical Min 4V - XRAY USE ONLY 09:01:40 CDT CPT-50376 Chest 2V Frontal and Lat - XRAY USE ONLY 11:06:31 CDT CPT-96775 EKG Trac and Interp - XRAY USE ONLY 11:31:43 CDT 08/26 CPT-J3420 Vitamin B12 1000mcg (Cyanocobalamin) 08:10:26 PODIATRY PROFESSOR 04/12 CPT-83677 Abx/Therapy Injection 08:10:26 PODIATRY PROFESSOR CPT-G0438 Initial Annual Wellness Exam 19:01:01 PODIATRY PROFESSOR CPT-J3420 Vitamin B12 1000mcg (Cyanocobalamin) 16:57:46 CDT 08/14 CPT-44704 Recombivax HB Injection Suspension 5 MCG/0.5ML 08:37:50 PODIATRY PROFESSOR CPT-84681 Immunization Single Admin 08:37:50 PODIATRY PROFESSOR CPT-J3420 Vitamin B12 1000mcg (Cyanocobalamin) 08:32:16 PODIATRY PROFESSOR 03/11 CPT-55115 Abx/Therapy Injection 08:32:16 PODIATRY PROFESSOR CPT-65528 Chest 2V Frontal and Lat 11:46:38 PODIATRY PROFESSOR CPT-65344 Venipuncture Draw Fee 09:12:45 PODIATRY PROFESSOR CPT-J3420 Vitamin B12 1000mcg (Cyanocobalamin) 08:50:15 PODIATRY PROFESSOR 02/08 CPT-66707 Abx/Therapy Injection 08:50:15 PODIATRY PROFESSOR CPT-Cryo Cryotherapy 10:19:35 PODIATRY PROFESSOR CPT-000 Give Appropriate Flu Vaccine 09:22:16 CDT CPT-J3420 Vitamin B12 1000mcg (Cyanocobalamin) 19:08:57 CDT 01/11 CPT-58717 Abx/Therapy Injection 19:08:57 CDT CPT-J3420 Vitamin B12 1000mcg (Cyanocobalamin) 08:19:08 CDT 12/11 CPT-16802 Abx/Therapy Injection 08:19:08 CDT CPT-J3420 Vitamin B12 1000mcg (Cyanocobalamin) 14:48:00 CDT 11/09 CPT-73426 Abx/Therapy Injection 14:47:59 CDT CPT-J3420 Vitamin B12 1000mcg (Cyanocobalamin) 08:34:04 CDT 10/09 CPT-84330 Abx/Therapy Injection 08:34:04 CDT CPT-J3420 Vitamin B12 1000mcg (Cyanocobalamin) 09:18:52 CDT 09/11 CPT-78735 Abx/Therapy Injection 09:18:52 CDT CPT-J3420 Vitamin B12 1000mcg (Cyanocobalamin) 08:35:44 CDT 09/04 CPT-11538 Abx/Therapy Injection 08:35:44 CDT CPT-43026 Immunization Single Admin 11:07:16 CDT CPT-81923 Hepatitis B adult IM 11:07:16 CDT CPT-J3420 Vitamin B12 1000mcg (Cyanocobalamin) 11:00:49 CDT 08/28 CPT-J1040 Depo Medrol 80 mg (Methyl Prednisolone Acetate) 11:00: 49 CDT CPT-71765 Abx/Therapy Injection 11:00:49 CDT CPT-J1040 Depo Medrol 80 mg (Methyl Prednisolone Acetate) 09:16: 23 CDT CPT-J3420 Vitamin B12 1000mcg (Cyanocobalamin) 08:27:05 CDT 08/20 CPT-54823 Abx/Therapy Injection 08:27:05 CDT CPT-65218 Recombivax HB Injection Suspension 5 MCG/0.5ML 10:00:41 CDT CPT-54814 Administration single or combination vaccine inc oral 10 :00:41 CDT CPT-13088 Sono transvag pelvis non OB uterus ovaries cervix 16:36: 57 CDT CPT-39280 LS spine comp w obliq 09:50:55 PODIATRY PROFESSOR CPT-70860 Abd compl w upright 09:50:55 PODIATRY PROFESSOR CPT-J1100 Decadron 4mg (Dexamethasone) 15:51:24 PODIATRY PROFESSOR CPT-J1030 Depo Medrol 40 mg (Methyl Prednisolone Acetate) 15:51: 24 PODIATRY PROFESSOR CPT-69517 Abx/Therapy Injection 15:51:24 PODIATRY PROFESSOR CPT-J1100 Decadron 4mg (Dexamethasone) 15:26:33 PODIATRY PROFESSOR CPT-J1030 Depo Medrol 40 mg (Methyl Prednisolone Acetate) 15:26: 33 PODIATRY PROFESSOR CPT-98374 Sono retroperitoneal complete kidneys and bladder 17:15: 30 CDT CPT-24341 Abd compl w upright 16:09:25 CDT CPT-J1100 Decadron 8mg (Dexamethasone) 17:07:57 CDT CPT-75472 Abx/Therapy Injection 17:07:57 CDT CPT-J1100 Decadron 8mg (Dexamethasone) 16:55:24 CDT CPT-12957 Chest 2V Frontal and Lat 16:32:44 CDT
--- OUTSIDE RECORDS SUMMARY | 2016-11-04 13:36 | XMS REPORT | Clinical Summary ---
Author Author Admin, [employer] Organization [email or web address] Address Unknown Phone Unavailable Allergies, Adverse Reactions, [...] specified Headache, atypical 784.0 Active Luigi Martínez TEAM LEADER/RESEARCH PSYCHOLOGIST Headache Elevated blood glucose 790.29 Resolved Vishal [...] 1/2 tab daily for 4 days PREDNISONE 42725393239 Active Vishal Hui MD Active IMITREX 50 MG ORAL TABS 1/2 tab every 6 hours prn SUMATRIPTAN SUCCINATE 10393430579 Active Jillina Mauricio NORIEGA Active AMBIEN 5 MG ORAL TABS 1 tab at bedtime ZOLPIDEM TARTRATE 78955664422 Active Jillina Johnl TEAM LEADER/RESEARCH PSYCHOLOGIST Active PROZAC 20 MG ORAL CAPS 1 tab daily FLUOXETINE HCL 18323201942 Active Jillina Fradwightl TEAM LEADER/RESEARCH PSYCHOLOGIST Active ABILIFY 15 MG ORAL TABS 1 tab daily ARIPIPRAZOLE 80744296721 Active Jillina Fradwightl TEAM LEADER/RESEARCH PSYCHOLOGIST Active MINIPRESS 2 MG CAPS 4 cap po at night PRAZOSIN HCL 54646011706 Active Jillina Frazell TEAM LEADER/RESEARCH PSYCHOLOGIST Active TOPAMAX 50 MG ORAL TABS 1 tab twice daily TOPIRAMATE 52265815602 Active Pacollina Mauricio WALTERSN Active SAPHRIS 5 MG SUBL 1 po bid ASENAPINE MALEATE 97527678755 No Longer Active Pacollina Mauricio NORIEGA Active LATUDA 80 MG TABS Take one by mouth daily LURASIDONE HCL 97632779869 No Longer Active Jillina Fralebron WALTERSN Active AMLODIPINE BESYLATE 5 MG TABS 1 tablet by mouth daily AMLODIPINE BESYLATE 17276221512 No Longer Active Tataina Mauricio WALTERSN Active AMITRIPTYLINE HCL 100 MG TAB one at hs AMITRIPTYLINE HCL 34743552218 No Longer Active Vishal Hui MD Active TRAZODONE HCL 100 MG TAB take 1 at bedtime TRAZODONE HCL 79124363533 No Longer Active Vishal Hui MD Active VYVANSE 40 MG CAPS 1 daily, LISDEXAMFETAMINE DIMESYLATE 35047521052 No Longer Active Vishal Hui MD Active IBUPROFEN 600 MG TAB 1 po TID PRN IBUPROFEN 14917947715 No Longer Active Vishal Hui MD Active MIRALAX PACK 1 po qd PRN Constipation POLYETHYLENE GLYCOL 3350 69010024506 Active Vishal Hui MD Active PROZAC 20 MG CAP Take one by mouth daily FLUOXETINE HCL 76262977975 No Longer Active Vishal Hui MD Active ZOFRAN 4 MG TABS 1 po q6hr PRN Nausea ONDANSETRON HCL Active Vishal Hui MD Active BACTRIM DS 800-160 MG TABS 1 pill by mouth twice daily SULFAMETHOXAZOLE-TRIMETHOPRIM 61218766128 No Longer Active Sahara Rodriguez MD PhD Active DIFLUCAN 150 MG TAB 1 tablet by mouth daily FLUCONAZOLE 11677773578 No Longer Active Vishal Hui MD Active TIZANIDINE HCL 4 MG TABS 1 po q6hr PRN Muscle Spasm/Back Pain TIZANIDINE HCL 35704557113 Active Luigi Martínez APRN Active CLINDAMYCIN HCL 150 MG CAPS 1 four times a day CLINDAMYCIN HCL 77992676341 No Longer Active Neeraj Collins MD Active KEFLEX 500 MG ORAL CAPS 1 cap QID by mouth CEPHALEXIN 45069732239 No Longer Active Neeraj Collins MD Active DIFLUCAN 150 MG TABS 1 pill every other day x 2 doses FLUCONAZOLE 08787963761 No Longer Active Sahara Rodriguez MD PhD Active MELATONIN 3 MG CAPS 2 po q hs MELATONIN 01174165267 No Longer Active Sahara Rodriguez MD PhD Active MULTIVITAMINS CAPS Take one by mouth daily MULTIPLE VITAMIN 29087585201 No Longer Active Sahara Rodriguez MD PhD Active BACTRIM DS 800-160 MG TAB 1 tab by mouth twice daily TRIMETHOPRIM-SULFAMETHOXAZOLE 51973495653 No Longer Active Sahara Rodriguez MD PhD Active [facility] PROBIOTIC ORAL CHEW 2 daily po PROBIOTIC PRODUCT 65069704078 No Longer Active Sahara Rodriguez MD PhD Active BACTRIM DS 800-160 MG TABS 1 po BID x 7 days SULFAMETHOXAZOLE-TRIMETHOPRIM 58117296416 No Longer Active Vishal Hui MD Active CHANTIX STARTING MONTH EARNEST 0.5 MG X 11 & 1 MG X 42 TABS 0.5mg daily for 3 days , then 0.5mg BID for 4 days, then 1mg BID VARENICLINE TARTRATE 56590675859 No Longer Active TAMARA Gray Active METOPROLOL TARTRATE 50 MG TAB 1 po bid METOPROLOL TARTRATE 99061456714 Active Vishal Hui MD Active VERAPAMIL HCL CR 120 MG TAB CR 1 po bid VERAPAMIL HCL 13159149014 No Longer Active Vishal Hui MD Active METOPROLOL SUCCINATE 50 MG TB24 1 tablet by mouth daily METOPROLOL SUCCINATE 69873520615 No Longer Active Vishal Hui MD Active TRAMADOL HCL 50 MG TABS 1-2 po TID PRN Pain TRAMADOL HCL 82793368201 Active Luigi Martínez TEAM LEADER/RESEARCH PSYCHOLOGIST Active SAPHRIS 10 MG SUBL 1 tab po bid ASENAPINE MALEATE 13259696213 No Longer Active Vishal Hui MD Active LISINOPRIL 20 MG TABS 1 tab po qd LISINOPRIL 28970503122 No Longer Active Vishal Hui MD Active BENADRYL 25 MG CAP 2 po tid prn anxiety DIPHENHYDRAMINE HCL 66602407643 Active Vishal Hui MD Active LATUDA 20 MG TABS Take one by mouth daily LURASIDONE HCL 50029681050 No Longer Active Vishal Hui MD Active TRAZODONE HCL 50 MG TABS 1/2 tab po qd prn for anxiety TRAZODONE HCL 70043400992 No Longer Active Vishal Hui MD Active PIROXICAM 20 MG CAPS 1 cap po qd PRN Pain PIROXICAM 81605456513 Active Vishal Hui MD Active OMEPRAZOLE 20 MG TBEC 1 po q a.m. 30min prior to first food intake OMEPRAZOLE 64661308782 Active Vishal Hui MD Active RANITIDINE HCL 150 MG CAPS 1 twice a day RANITIDINE HCL 30592947552 Active Vishal Hui MD Active LINZESS 290 MCG CAPS Take one by mouth daily LINACLOTIDE 86642890358 No Longer Active Vishal Hui MD Active SAPHRIS 5 MG SUBL 1 tab po qd ASENAPINE MALEATE 87194805679 No Longer Active Vishal Hui MD Active ZALEPLON 10 MG CAPS 1 cap po every other night ZALEPLON 09116307122 No Longer Active Vishal Hui MD Active LYRICA 50 MG CAPS 1 tab po TID PREGABALIN 68743091815 No Longer Active Vishal Hui MD Active LORATADINE 10 MG TABS 1 tab po qd LORATADINE 38238726548 No Longer Active Vishal Hui MD Active VERAPAMIL HCL ER 180 MG CR-TABS 1 tab po bid VERAPAMIL HCL 47247234494 No Longer Active Vishal Hui MD Active MIRALAX POWD 1 capfull once daily POLYETHYLENE GLYCOL 3350 80122638671 No Longer Active Vishal Hui MD Active PREDNISONE 20 MG TABS 1 tab po qd PREDNISONE 43497612570 No Longer Active Renzo Thornton DO Active LEVOFLOXACIN 500 MG TABS 1 tab po qd LEVOFLOXACIN 45493339815 No Longer Active Renzo Thornton DO Active BUSPIRONE HCL 15 MG TABS 1 tab po TID BUSPIRONE HCL 52191643390 No Longer Active Renzo Thornton DO Active BENZTROPINE MESYLATE 1 MG TABS 1 tab po qd BENZTROPINE MESYLATE 80395127158 No Longer Active Renzo Thornton DO Active ATENOLOL 25 MG TABS 1 tab po qd ATENOLOL 27376007799 No Longer Active Renzo Thornton DO Active ESCITALOPRAM OXALATE 20 MG TABS 1 tab po qd ESCITALOPRAM OXALATE 61110548125 No Longer Active Renzo Thornton DO Active ADVAIR DISKUS 250-50 MCG/DOSE AEPB 1 puff BID FLUTICASONE-SALMETEROL 29020895990 No Longer Active Renzo Thornton DO Active PREDNISONE 20 MG TAB 2 tabs daily for 3 days, 1 tab daily for 3 days, 1/2 tab daily for 2 days PREDNISONE 76877068699 No Longer Active Vishal Hui MD Active CEFDINIR 300 MG CAPS by mouth twice a day CEFDINIR 44490604264 No Longer Active Vishal Hui MD Active LANSOPRAZOLE 30 MG CPDR 1 cap po qd LANSOPRAZOLE 56999241596 No Longer Active Vishal Hui MD Active BACLOFEN 20 MG TABS 1 tab po tid BACLOFEN 41236115452 No Longer Active Vishal Hui MD Active ADVAIR DISKUS 250-50 MCG/DOSE AEPB 1 puff BID ADVAIR DISKUS 250-50 MCG/DOSE AEPB FLUTICASONE-SALMETEROL Inactive ESCITALOPRAM OXALATE 20 MG TABS 1 tab po qd ESCITALOPRAM OXALATE 20 MG TABS 965945 ESCITALOPRAM OXALATE Inactive ATENOLOL 25 MG TABS 1 tab po qd ATENOLOL 25 MG TABS 342200 ATENOLOL Inactive BENZTROPINE MESYLATE 1 MG TABS 1 tab po qd BENZTROPINE MESYLATE 1 MG TABS 102577 BENZTROPINE MESYLATE Inactive BUSPIRONE HCL 15 MG TABS 1 tab po TID BUSPIRONE HCL 15 MG TABS 124235 BUSPIRONE HCL Inactive LEVOFLOXACIN 500 MG TABS 1 tab po qd LEVOFLOXACIN 500 MG TABS 469728 LEVOFLOXACIN Inactive PREDNISONE 20 MG TABS 1 tab po qd PREDNISONE 20 MG TABS 223568 PREDNISONE Inactive MIRALAX POWD 1 capfull once daily MIRALAX POWD 663662 POLYETHYLENE GLYCOL 3350 Inactive VERAPAMIL HCL ER 180 MG CR-TABS 1 tab po bid VERAPAMIL HCL ER 180 MG CR-TABS VERAPAMIL HCL Inactive LORATADINE 10 MG TABS 1 tab po qd LORATADINE 10 MG TABS 047139 LORATADINE Inactive LYRICA 50 MG CAPS 1 tab po TID LYRICA 50 MG CAPS PREGABALIN Inactive ZALEPLON 10 MG CAPS 1 cap po every other night ZALEPLON 10 MG CAPS 458191 ZALEPLON Inactive SAPHRIS 5 MG SUBL 1 tab po qd SAPHRIS 5 MG SUBL ASENAPINE MALEATE Inactive TRAZODONE HCL 50 MG TABS 1/2 tab po qd prn for anxiety TRAZODONE HCL 50 MG TABS 815439 TRAZODONE HCL Inactive LATUDA 20 MG TABS Take one by mouth daily LATUDA 20 MG TABS LURASIDONE HCL Inactive LISINOPRIL 20 MG TABS 1 tab po qd LISINOPRIL 20 MG TABS 916465 LISINOPRIL Inactive SAPHRIS 10 MG SUBL 1 [...] twice daily BACTRIM DS 800-160 MG TAB 542636 TRIMETHOPRIM-SULFAMETHOXAZOLE Inactive MULTIVITAMINS CAPS Take one by mouth daily MULTIVITAMINS CAPS MULTIPLE VITAMIN Inactive MELATONIN 3 MG CAPS 2 po q hs MELATONIN 3 MG CAPS 831768 MELATONIN Inactive KEFLEX 500 MG ORAL CAPS 1 cap QID by mouth KEFLEX 500 MG ORAL CAPS 627062 CEPHALEXIN Inactive CLINDAMYCIN HCL 150 MG CAPS 1 four times a day CLINDAMYCIN HCL 150 MG CAPS 761410 CLINDAMYCIN HCL Inactive DIFLUCAN 150 MG TAB 1 tablet by mouth daily DIFLUCAN 150 MG TAB 430767 FLUCONAZOLE Inactive PROZAC 20 MG CAP Take one by mouth daily PROZAC 20 MG CAP 924952 FLUOXETINE HCL Inactive IBUPROFEN 600 MG TAB 1 po TID PRN IBUPROFEN 600 MG TAB 118343 IBUPROFEN Inactive VYVANSE 40 MG CAPS 1 daily, VYVANSE 40 MG CAPS LISDEXAMFETAMINE DIMESYLATE Inactive TRAZODONE HCL 100 MG TAB take 1 at bedtime TRAZODONE HCL 100 MG TAB 475971 TRAZODONE HCL Inactive AMITRIPTYLINE HCL 100 MG TAB one at hs AMITRIPTYLINE HCL 100 MG TAB 903293 AMITRIPTYLINE HCL Inactive AMLODIPINE BESYLATE 5 MG TABS 1 tablet by mouth daily AMLODIPINE BESYLATE 5 MG TABS 962959 AMLODIPINE BESYLATE Inactive LATUDA 80 MG TABS Take one by mouth daily LATUDA 80 MG TABS LURASIDONE HCL Inactive SAPHRIS 5 MG SUBL 1 po bid SAPHRIS 5 MG SUBL ASENAPINE MALEATE Inactive CEFDINIR 300 MG CAPS by mouth twice a day CEFDINIR 300 MG CAPS 361627 CEFDINIR Inactive PREDNISONE 20 MG TAB 2 tabs daily for 3 days, 1 tab daily for 3 days, 1/2 tab daily for 2 days PREDNISONE 20 MG TAB 691318 PREDNISONE Inactive BACTRIM DS 800-160 MG TABS 1 po BID x 7 days BACTRIM DS 800-160 MG TABS 19820521 SULFAMETHOXAZOLE-TRIMETHOPRIM Inactive DIFLUCAN 150 MG TABS 1 pill every other day x 2 doses DIFLUCAN 150 MG TABS 129601 FLUCONAZOLE Inactive BACTRIM DS 800-160 MG TABS [...] % 11.6-14.8 platelet count 394 10^3/MM^3 10*3/mm3 354-247 8943/01/11 leukocyte count, blood 13.8 10^3/MM^3 10*3/mm3 4.6-10.2 [...] Panel - Chemistry sodium, serum 139 mmol/L 546-057 5217/12/03 carbon dioxide, venous blood 28.5 mmol/L 21.0-32.0 [...] 5.5 % 4.3-6.0 cholesterol, serum 159 mg/dL 908-461 2117/12/03 triglyceride, serum, fasting 118 mg/dL 30-200 HDL [...] ... - Chemistry sodium, serum 140 mmol/L 399-558 2018/05/28 potassium, serum 4.2 mmol/L 3.5-5.2 chloride, serum [...] Panel - Chemistry sodium, serum 141 mmol/L 910-196 2576 potassium, serum 4.3 mmol/L 3.5-5.2 chloride, serum 106 mmol/L 98-107 carbon dioxide, venous blood 25.7 mmol/L 21.0-32.0 blood glucose 119 mg/dL 65-110 urea nitrogen, blood 22 mg/dL 7-18 creatinine, serum 0.90 mg/dL 0.60-1.30 alanine aminotransferase (SGPT), serum 28 U/L -78 aspartate aminotransferase (SGOT), serum 13 U/L 15-37 calcium, serum 8.5 mg/dL 8.5-10.1 bilirubin, serum, total 0.20 mg/dL 0.00-1.00 sodium, serum 139 mmol/L 253-028 6376/12/22 carbon dioxide, venous blood 26.8 mmol/L 21.0-32.0 [...] Rate - Chemistry sodium, serum 139 mmol/L 399-674 6915/12/11 carbon dioxide, venous blood 25.4 mmol/L 21.0-32.0 [...] 5.5 5.0-8.5 Lab Report: UADIP W/MICRO, AUTO, [facility] [place] - Chemistry protein, total urine random Negative mg/dL Negative RBC, urine, dipstick Negative Negative human chorionic gonadotropin, urine, qualitative (urine test) Negative Negative Lab Report: UADIP W/MICRO, AUTO, [facility] [place] - Urinalysis urobilinogen, urine, semiquantitative (dipstick) 0.2 Normal leukocyte esterase, urine, by dipstick Negative Negative nitrite, urine, semiquantitative Negative Negative glucose, urine, semiquantitative Negative Negative ketones, urine, by test strip Negative Negative bilirubin, urine Negative Negative urine color Yellow Colorless;Lightyellow;Straw;Yellow appearance, urine Clear Clear specific gravity, urine 1.025 1.000-1.030 pH, urine, semiquantitative 7.0 5.0-8.5 Lab Report: Varicella-Zoater Inga IgG,IgM/61986, HEP Be Antibody/556, RUB ... - Serology rubella antibody, serum, IgG 2.88 Encounters Code Encounter Date Provider Facility CPT-49573 Level 4 Est. Patient 09:00:51 VOLUNTEER MANAGER Vishal Hui MD [facility] CPT-67124 Level 3 Est. Patient 11:37:33 VOLUNTEER MANAGER Vishal Hui MD [facility] CPT-35244 Level 3 Est. Patient 08:41:09 VOLUNTEER MANAGER Vishal Hui MD [facility] CPT-81525 Level 4 Est. Patient 10:19:35 VOLUNTEER MANAGER Vishal Hui MD [facility] CPT-52099 Level 3 Est. Patient 13:35:45 CDT Vishal Hui MD [facility] CPT-57299 Level 4 Est. Patient 10:08:37 CDT Vishal Hui MD [facility] CPT-52453 Level 3 Est. Patient 11:22:10 CDT Vishal Hui MD [facility] CPT-74973 Level 3 Est. Patient 11:03:32 CDT Sahara Rodriguez MD [facility]-34901 Level 3 Est. Patient 09:41:35 CDT Vishal Hui MD [facility] CPT-17858 Level 3 Est. Patient 12:00:41 CDT Neeraj Collins MD [facility] CPT-80951 Level 3 Est. Patient 09:16:24 CDT Vishal Hui MD [facility] CPT-59927 Level 4 Est. Patient 13:59:09 CDT Neeraj Collins MD [facility]-24953 Level 3 Est. Patient 15:19:43 CDT Renzo Thornton DO [facility] CPT-31499 Level 3 Est. Patient 18:10:26 CDT Sahara Rodriguez MD [facility]-87335 Level 3 Est. Patient 14:49:50 CDT Vishal Hui MD [facility] CPT-36039 Level 4 Est. Patient 18:41:46 CDT Neeraj Collins MD [facility]-74122 Level 4 Est. Patient 09:18:38 VOLUNTEER MANAGER Vishal Hui MD [facility] CPT-22331 Level 3 Est. Patient 14:43:55 VOLUNTEER MANAGER Vishal Hui MD [facility] CPT-18761 Level 3 Est. Patient 15:26:33 VOLUNTEER MANAGER Sahara Rodriguez MD PhD [facility] CPT-91032 Level 3 Est. Patient 10:32:14 VOLUNTEER MANAGER Vishal Hui MD [facility] CPT-49438 Level 3 Est. Patient 15:12:52 VOLUNTEER MANAGER Vishal Hui MD [facility] CPT-39927 Level 4 Est. Patient 09:19:27 CDT Vishal Hui MD [facility] CPT-99635 Level 3 Est. Patient 15:53:00 CDT Renzo Thornton [facility] CPT-92728 Level 3 Est. Patient 15:50:30 CDT Renzo Thornton [facility] CPT-94754 Level 3 Est. Patient 16:55:24 CDT Vishal Hui MD [facility] Procedures Code Procedure Name Date Entry Date Standard Description CPT-J3420 Vitamin B12 1000mcg (Cyanocobalamin) 16:57:46 CDT 08/14 CPT-34321 Recombivax HB Injection Suspension 5 MCG/0.5ML 08:37:50 VOLUNTEER MANAGER CPT-48269 Immunization Single Admin 08:37:50 VOLUNTEER MANAGER CPT-J3420 Vitamin B12 1000mcg (Cyanocobalamin) 08:32:16 VOLUNTEER MANAGER 03/11 CPT-99555 Abx/Therapy Injection 08:32:16 VOLUNTEER MANAGER CPT-07937 Chest 2V Frontal and Lat 11:46:38 VOLUNTEER MANAGER CPT-41453 Venipuncture Draw Fee 09:12:45 VOLUNTEER MANAGER CPT-J3420 Vitamin B12 1000mcg (Cyanocobalamin) 08:50:15 VOLUNTEER MANAGER 02/08 CPT-29454 Abx/Therapy Injection 08:50:15 VOLUNTEER MANAGER CPT-Cryo Cryotherapy 10:19:35 VOLUNTEER MANAGER CPT-000 Give Appropriate Flu Vaccine 09:22:16 CDT CPT-J3420 Vitamin B12 1000mcg (Cyanocobalamin) 19:08:57 CDT 01/11 CPT-42299 Abx/Therapy Injection 19:08:57 CDT CPT-J3420 Vitamin B12 1000mcg (Cyanocobalamin) 08:19:08 CDT 12/11 CPT-32025 Abx/Therapy Injection 08:19:08 CDT CPT-J3420 Vitamin B12 1000mcg (Cyanocobalamin) 14:48:00 CDT 11/09 CPT-69633 Abx/Therapy Injection 14:47:59 CDT CPT-J3420 Vitamin B12 1000mcg (Cyanocobalamin) 08:34:04 CDT 10/09 CPT-63217 Abx/Therapy Injection 08:34:04 CDT CPT-J3420 Vitamin B12 1000mcg (Cyanocobalamin) 09:18:52 CDT 09/11 CPT-10900 Abx/Therapy Injection 09:18:52 CDT CPT-J3420 Vitamin B12 1000mcg (Cyanocobalamin) 08:35:44 CDT 09/04 CPT-24151 Abx/Therapy Injection 08:35:44 CDT CPT-13550 Immunization Single Admin 11:07:16 CDT CPT-55527 Hepatitis B adult IM 11:07:16 CDT CPT-J3420 Vitamin B12 1000mcg (Cyanocobalamin) 11:00:49 CDT 08/28 CPT-J1040 Depo Medrol 80 mg (Methyl Prednisolone Acetate) 11:00: 49 CDT CPT-74970 Abx/Therapy Injection 11:00:49 CDT CPT-J1040 Depo Medrol 80 mg (Methyl Prednisolone Acetate) 09:16: 23 CDT CPT-J3420 Vitamin B12 1000mcg (Cyanocobalamin) 08:27:05 CDT 08/20 CPT-08986 Abx/Therapy Injection 08:27:05 CDT CPT-78809 Recombivax HB Injection Suspension 5 MCG/0.5ML 10:00:41 CDT CPT-95220 Administration single or combination vaccine inc oral 10 :00:41 CDT CPT-19999 Sono transvag pelvis non OB uterus ovaries cervix 16:36: 57 CDT CPT-28241 LS spine comp w obliq 09:50:55 VOLUNTEER MANAGER CPT-65537 Abd compl w upright 09:50:55 VOLUNTEER MANAGER CPT-J1100 Decadron 4mg (Dexamethasone) 15:51:24 VOLUNTEER MANAGER CPT-J1030 Depo Medrol 40 mg (Methyl Prednisolone Acetate) 15:51: 24 VOLUNTEER MANAGER CPT-86562 Abx/Therapy Injection 15:51:24 VOLUNTEER MANAGER CPT-J1100 Decadron 4mg (Dexamethasone) 15:26:33 VOLUNTEER MANAGER CPT-J1030 Depo Medrol 40 mg (Methyl Prednisolone Acetate) 15:26: 33 VOLUNTEER MANAGER CPT-50256 Sono retroperitoneal complete kidneys and bladder 17:15: 30 CDT CPT-73607 Abd compl w upright 16:09:25 CDT CPT-J1100 Decadron 8mg (Dexamethasone) 17:07:57 CDT CPT-34191 Abx/Therapy Injection 17:07:57 CDT CPT-J1100 Decadron 8mg (Dexamethasone) 16:55:24 CDT CPT-61391 Chest 2V Frontal and Lat 16:32:44 CDT
--- OUTSIDE RECORDS SUMMARY | 2016-11-04 13:38 | XMS REPORT | Clinical Summary ---
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 Morbid obesity 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 Active Juliet Kimbrough PAPER ROLL MACHINE OPERATOR Dependence on other enabling machines and devices Gait unsteady 781.2 Active Juliet Kimbrough APRN Abnormality of gait Anxiety Disorder ICD-300.00 Inactive Vishal Hui MD [...] IM SUSR Injection once per month ARIPIPRAZOLE 67127657498 Active Juliet Kimbrough APRN Active PREDNISONE 20 MG TAB 2 tabs daily for 4 days, 1 tab daily for 4 days, 1/2 tab daily for 4 days PREDNISONE 74714410757 Active Vishal Hui MD Active IMITREX 50 MG ORAL TABS 1/2 tab every 6 hours prn SUMATRIPTAN SUCCINATE 70319968833 Active Tataina Mauricio NORIEGA Active AMBIEN 5 MG ORAL TABS 1 tab at bedtime ZOLPIDEM TARTRATE 18974136926 Active Luigi Martínez APRN Active PROZAC 20 MG ORAL CAPS 1 tab daily FLUOXETINE HCL 82450758938 Active Luigi Martínez APRN Active ABILIFY 15 MG ORAL TABS 1 tab daily ARIPIPRAZOLE 74896724887 Active Luigi Martínez APRN Active MINIPRESS 2 MG CAPS 4 cap po at night PRAZOSIN HCL 94690089650 Active Luigi Martínez APRN Active TOPAMAX 50 MG ORAL TABS 1 tab twice daily TOPIRAMATE 18256987044 Active Vishal Hui MD Active SAPHRIS 5 MG SUBL 1 po bid ASENAPINE MALEATE 44984471503 No Longer Active Pacollina Frazell PAPER ROLL MACHINE OPERATOR Active LATUDA 80 MG TABS Take one by mouth daily LURASIDONE HCL 58647179303 No Longer Active Luigi Martínez PAPER ROLL MACHINE OPERATOR Active AMLODIPINE BESYLATE 5 MG TABS 1 tablet by mouth daily AMLODIPINE BESYLATE 19823279923 No Longer Active Luigi Martínez PAPER ROLL MACHINE OPERATOR Active AMITRIPTYLINE HCL 100 MG TAB one at hs AMITRIPTYLINE HCL 15925465773 No Longer Active Vishal Hui MD Active TRAZODONE HCL 100 MG TAB take 1 at bedtime TRAZODONE HCL 29093457124 No Longer Active Vishal Hui MD Active VYVANSE 40 MG CAPS 1 daily, LISDEXAMFETAMINE DIMESYLATE 29997751524 No Longer Active Vishal Hui MD Active IBUPROFEN 600 MG TAB 1 po TID PRN IBUPROFEN 51894636453 No Longer Active Vishal Hui MD Active MIRALAX PACK 1 po qd PRN Constipation POLYETHYLENE GLYCOL 3350 14816001289 Active Vishal Hui MD Active PROZAC 20 MG CAP Take one by mouth daily FLUOXETINE HCL 31564337921 No Longer Active Vishal Hui MD Active ZOFRAN 4 MG TABS 1 po q6hr PRN Nausea ONDANSETRON HCL Active Vishal Hui MD Active BACTRIM DS 800-160 MG TABS 1 pill by mouth twice daily SULFAMETHOXAZOLE-TRIMETHOPRIM 58908652117 No Longer Active Sahara Rodriguez MD PhD Active DIFLUCAN 150 MG TAB 1 tablet by mouth daily FLUCONAZOLE 16492669283 No Longer Active Vishal Hui MD Active TIZANIDINE HCL 4 MG TABS 1 po q6hr PRN Muscle Spasm/Back Pain TIZANIDINE HCL 64309302736 Active Luigi Martínez APRN Active CLINDAMYCIN HCL 150 MG CAPS 1 four times a day CLINDAMYCIN HCL 36485903620 No Longer Active Neeraj Collins MD Active KEFLEX 500 MG ORAL CAPS 1 cap QID by mouth CEPHALEXIN 56071313677 No Longer Active Neeraj Collins MD Active DIFLUCAN 150 MG TABS 1 pill every other day x 2 doses FLUCONAZOLE 56873381117 No Longer Active Sahara Rodriguez MD PhD Active MELATONIN 3 MG CAPS 2 po q hs MELATONIN 32107906862 No Longer Active Sahara Rodriguez MD PhD Active MULTIVITAMINS CAPS Take one by mouth daily MULTIPLE VITAMIN 37093953017 No Longer Active Sahara Rodriguez MD PhD Active BACTRIM DS 800-160 MG TAB 1 tab by mouth twice daily TRIMETHOPRIM-SULFAMETHOXAZOLE 99877926035 No Longer Active Sahara Rodriguez MD PhD Active [facility] PROBIOTIC ORAL CHEW 2 daily po PROBIOTIC PRODUCT 98250198978 No Longer Active Sahara Rodriguez MD PhD Active BACTRIM DS 800-160 MG TABS 1 po BID x 7 days SULFAMETHOXAZOLE-TRIMETHOPRIM 64567451023 No Longer Active Vishal Hui MD Active CHANTIX STARTING MONTH EARNEST 0.5 MG X 11 & 1 MG X 42 TABS 0.5mg daily for 3 days , then 0.5mg BID for 4 days, then 1mg BID VARENICLINE TARTRATE 98016230307 No Longer Active TAMARA Gray Active METOPROLOL TARTRATE 50 MG TAB 1 po bid METOPROLOL TARTRATE 12291309023 Active Vishal Hui MD Active VERAPAMIL HCL CR 120 MG TAB CR 1 po bid VERAPAMIL HCL 03985796752 No Longer Active Vishal Hui MD Active METOPROLOL SUCCINATE 50 MG TB24 1 tablet by mouth daily METOPROLOL SUCCINATE 22281704880 No Longer Active Vishal Hui MD Active TRAMADOL HCL 50 MG TABS 1-2 po TID PRN Pain TRAMADOL HCL 47590301904 Active Luigi Martínez PAPER ROLL MACHINE OPERATOR Active SAPHRIS 10 MG SUBL 1 tab po bid ASENAPINE MALEATE 02401513996 No Longer Active Vishal Hui MD Active LISINOPRIL 20 MG TABS 1 tab po qd LISINOPRIL 06073011314 No Longer Active Vishal Hui MD Active BENADRYL 25 MG CAP 2 po tid prn anxiety DIPHENHYDRAMINE HCL 10414276877 Active Vishal Hui MD Active LATUDA 20 MG TABS Take one by mouth daily LURASIDONE HCL 78553841247 No Longer Active Vishal Hui MD Active TRAZODONE HCL 50 MG TABS 1/2 tab po qd prn for anxiety TRAZODONE HCL 89973459844 No Longer Active Vishal Hui MD Active PIROXICAM 20 MG CAPS 1 cap po qd PRN Pain PIROXICAM 32848657120 Active Vishal Hui MD Active OMEPRAZOLE 20 MG TBEC 1 po q a.m. 30min prior to first food intake OMEPRAZOLE 86562979831 Active Vishal Hui MD Active RANITIDINE HCL 150 MG CAPS 1 twice a day RANITIDINE HCL 03838264006 Active Vishal Hui MD Active LINZESS 290 MCG CAPS Take one by mouth daily LINACLOTIDE 69073606731 No Longer Active Vishal Hui MD Active SAPHRIS 5 MG SUBL 1 tab po qd ASENAPINE MALEATE 75593529808 No Longer Active Vishal Hui MD Active ZALEPLON 10 MG CAPS 1 cap po every other night ZALEPLON 29775261559 No Longer Active Vishal Hui MD Active LYRICA 50 MG CAPS 1 tab po TID PREGABALIN 67556333948 No Longer Active Vishal Hui MD Active LORATADINE 10 MG TABS 1 tab po qd LORATADINE 56868853923 No Longer Active Vishal Hui MD Active VERAPAMIL HCL ER 180 MG CR-TABS 1 tab po bid VERAPAMIL HCL 92659725244 No Longer Active Vishal Hui MD Active MIRALAX POWD 1 capfull once daily POLYETHYLENE GLYCOL 3350 86912399722 No Longer Active Vishal Hui MD Active PREDNISONE 20 MG TABS 1 tab po qd PREDNISONE 85045768038 No Longer Active Renzo Thornton DO Active LEVOFLOXACIN 500 MG TABS 1 tab po qd LEVOFLOXACIN 02724089582 No Longer Active Renzo Thornton DO Active BUSPIRONE HCL 15 MG TABS 1 tab po TID BUSPIRONE HCL 99843025048 No Longer Active Renzo Thornton DO Active BENZTROPINE MESYLATE 1 MG TABS 1 tab po qd BENZTROPINE MESYLATE 49032245064 No Longer Active Renzo Thornton DO Active ATENOLOL 25 MG TABS 1 tab po qd ATENOLOL 84349059477 No Longer Active Renzo Thornton DO Active ESCITALOPRAM OXALATE 20 MG TABS 1 tab po qd ESCITALOPRAM OXALATE 28886130320 No Longer Active Renzo Thornton DO Active ADVAIR DISKUS 250-50 MCG/DOSE AEPB 1 puff BID FLUTICASONE-SALMETEROL 92698492546 No Longer Active Renzo Thornton DO Active PREDNISONE 20 MG TAB 2 tabs daily for 3 days, 1 tab daily for 3 days, 1/2 tab daily for 2 days PREDNISONE 29268693737 No Longer Active Vishal Hui MD Active CEFDINIR 300 MG CAPS by mouth twice a day CEFDINIR 03436446291 No Longer Active Vishal Hui MD Active LANSOPRAZOLE 30 MG CPDR 1 cap po qd LANSOPRAZOLE 27153330035 No Longer Active Vishal Hui MD Active BACLOFEN 20 MG TABS 1 tab po tid BACLOFEN 67898751485 No Longer Active Vishal Hui MD Active ADVAIR DISKUS 250-50 MCG/DOSE AEPB 1 puff BID ADVAIR DISKUS 250-50 MCG/DOSE AEPB FLUTICASONE-SALMETEROL Inactive ESCITALOPRAM OXALATE 20 MG TABS 1 tab po qd ESCITALOPRAM OXALATE 20 MG TABS 280931 ESCITALOPRAM OXALATE Inactive ATENOLOL 25 MG TABS 1 tab po qd ATENOLOL 25 MG TABS 984976 ATENOLOL Inactive BENZTROPINE MESYLATE 1 MG TABS 1 tab po qd BENZTROPINE MESYLATE 1 MG TABS 262825 BENZTROPINE MESYLATE Inactive BUSPIRONE HCL 15 MG TABS 1 tab po TID BUSPIRONE HCL 15 MG TABS 463114 BUSPIRONE HCL Inactive LEVOFLOXACIN 500 MG TABS 1 tab po qd LEVOFLOXACIN 500 MG TABS 072178 LEVOFLOXACIN Inactive PREDNISONE 20 MG TABS 1 tab po qd PREDNISONE 20 MG TABS 555608 PREDNISONE Inactive MIRALAX POWD 1 capfull once daily MIRALAX POWD 440880 POLYETHYLENE GLYCOL 3350 Inactive VERAPAMIL HCL ER 180 MG CR-TABS 1 tab po bid VERAPAMIL HCL ER 180 MG CR-TABS VERAPAMIL HCL Inactive LORATADINE 10 MG TABS 1 tab po qd LORATADINE 10 MG TABS 657614 LORATADINE Inactive LYRICA 50 MG CAPS 1 tab po TID LYRICA 50 MG CAPS PREGABALIN Inactive ZALEPLON 10 MG CAPS 1 cap po every other night ZALEPLON 10 MG CAPS 181572 ZALEPLON Inactive SAPHRIS 5 MG SUBL 1 tab po qd SAPHRIS 5 MG SUBL ASENAPINE MALEATE Inactive TRAZODONE HCL 50 MG TABS 1/2 tab po qd prn for anxiety TRAZODONE HCL 50 MG TABS 524020 TRAZODONE HCL Inactive LATUDA 20 MG TABS Take one by mouth daily LATUDA 20 MG TABS LURASIDONE HCL Inactive LISINOPRIL 20 MG TABS 1 tab po qd LISINOPRIL 20 MG TABS 527276 LISINOPRIL Inactive SAPHRIS 10 MG SUBL 1 [...] twice daily BACTRIM DS 800-160 MG TAB 899241 TRIMETHOPRIM-SULFAMETHOXAZOLE Inactive MULTIVITAMINS CAPS Take one by mouth daily MULTIVITAMINS CAPS MULTIPLE VITAMIN Inactive MELATONIN 3 MG CAPS 2 po q hs MELATONIN 3 MG CAPS 331295 MELATONIN Inactive KEFLEX 500 MG ORAL CAPS 1 cap QID by mouth KEFLEX 500 MG ORAL CAPS 058258 CEPHALEXIN Inactive CLINDAMYCIN HCL 150 MG CAPS 1 four times a day CLINDAMYCIN HCL 150 MG CAPS 300238 CLINDAMYCIN HCL Inactive DIFLUCAN 150 MG TAB 1 tablet by mouth daily DIFLUCAN 150 MG TAB 459297 FLUCONAZOLE Inactive PROZAC 20 MG CAP Take one by mouth daily PROZAC 20 MG CAP 542570 FLUOXETINE HCL Inactive IBUPROFEN 600 MG TAB 1 po TID PRN IBUPROFEN 600 MG TAB 401908 IBUPROFEN Inactive VYVANSE 40 MG CAPS 1 daily, VYVANSE 40 MG CAPS LISDEXAMFETAMINE DIMESYLATE Inactive TRAZODONE HCL 100 MG TAB take 1 at bedtime TRAZODONE HCL 100 MG TAB 318004 TRAZODONE HCL Inactive AMITRIPTYLINE HCL 100 MG TAB one at hs AMITRIPTYLINE HCL 100 MG TAB 215055 AMITRIPTYLINE HCL Inactive AMLODIPINE BESYLATE 5 MG TABS 1 tablet by mouth daily AMLODIPINE BESYLATE 5 MG TABS 858134 AMLODIPINE BESYLATE Inactive LATUDA 80 MG TABS Take one by mouth daily LATUDA 80 MG TABS LURASIDONE HCL Inactive SAPHRIS 5 MG SUBL 1 po bid SAPHRIS 5 MG SUBL ASENAPINE MALEATE Inactive CEFDINIR 300 MG CAPS by mouth twice a day CEFDINIR 300 MG CAPS 248535 CEFDINIR Inactive PREDNISONE 20 MG TAB 2 tabs daily for 3 days, 1 tab daily for 3 days, 1/2 tab daily for 2 days PREDNISONE 20 MG TAB 794920 PREDNISONE Inactive BACTRIM DS 800-160 MG TABS 1 po BID x 7 days BACTRIM DS 800-160 MG TABS 19820521 SULFAMETHOXAZOLE-TRIMETHOPRIM Inactive DIFLUCAN 150 MG TABS 1 pill every other day x 2 doses DIFLUCAN 150 MG TABS 589533 FLUCONAZOLE Inactive BACTRIM DS 800-160 MG TABS [...] % 11.6-14.8 platelet count 394 10^3/MM^3 10*3/mm3 661-531 8493/01/11 leukocyte count, blood 13.8 10^3/MM^3 10*3/mm3 4.6-10.2 [...] Panel - Chemistry sodium, serum 139 mmol/L 369-086 8111/12/03 carbon dioxide, venous blood 28.5 mmol/L 21.0-32.0 [...] 5.5 % 4.3-6.0 cholesterol, serum 159 mg/dL 297-404 2920/12/03 triglyceride, serum, fasting 118 mg/dL 30-200 HDL [...] ... - Chemistry sodium, serum 140 mmol/L 080-809 9326/05/28 potassium, serum 4.2 mmol/L 3.5-5.2 chloride, serum [...] Panel - Chemistry sodium, serum 141 mmol/L 226-091 6836 potassium, serum 4.3 mmol/L 3.5-5.2 chloride, serum 106 mmol/L 98-107 carbon dioxide, venous blood 25.7 mmol/L 21.0-32.0 blood glucose 119 mg/dL 65-110 urea nitrogen, blood 22 mg/dL 7-18 creatinine, serum 0.90 mg/dL 0.60-1.30 alanine aminotransferase (SGPT), serum 28 U/L 12-78 aspartate aminotransferase (SGOT), serum 13 U/L 15-37 calcium, serum 8.5 mg/dL 8.5-10.1 bilirubin, serum, total 0.20 mg/dL 0.00-1.00 sodium, serum 139 mmol/L 014-398 3017/12/22 carbon dioxide, venous blood 26.8 mmol/L 21.0-32.0 potassium, serum 4.2 mmol/L 3.5-5.2 chloride, serum 103 mmol/L 98-107 blood glucose 115 mg/dL 65-110 urea nitrogen, blood 20 mg/dL 7-18 creatinine, serum 0.90 mg/dL 0.55-1.30 alanine aminotransferase (SGPT), serum 38 U/L -78 aspartate aminotransferase (SGOT), serum 19 U/L 15-37 calcium, serum 8.6 mg/dL 8.5-10.1 bilirubin, serum, total 0.30 mg/dL 0.00-1.00 sodium, serum 139 mmol/L 341-899 6708/01/11 carbon dioxide, venous blood 26.6 mmol/L 21.0-32.0 [...] Rate - Chemistry sodium, serum 139 mmol/L 849-411 0140/12/11 carbon dioxide, venous blood 25.4 mmol/L 21.0-32.0 [...] 5.5 5.0-8.5 Lab Report: UADIP W/MICRO, AUTO, [facility] [place] Chemistry protein, total urine random Negative mg/dL Negative RBC, urine, dipstick Negative Negative human chorionic gonadotropin, urine, qualitative (urine test) Negative Negative Lab Report: UADIP W/MICRO, AUTO, [facility] [place] - Urinalysis urobilinogen, urine, semiquantitative (dipstick) 0.2 Normal leukocyte esterase, urine, by dipstick Negative Negative nitrite, urine, semiquantitative Negative Negative glucose, urine, semiquantitative Negative Negative ketones, urine, by test strip Negative Negative bilirubin, urine Negative Negative urine color Yellow Colorless;Lightyellow;Straw;Yellow appearance, urine Clear Clear specific gravity, urine 1.025 1.000-1.030 pH, urine, semiquantitative 7.0 5.0-8.5 Lab Report: Varicella-Zoater Inga IgG,IgM/45879, HEP Be Antibody/556, RUB ... - Serology rubella antibody, serum, IgG 2.88 Encounters Code Encounter Date Provider Facility CPT-88701 Level 4 Est. 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 Patient 11:37:33 WELL SERVICE FLOOR WORKER Vishal Hui MD [facility] CPT-51303 Level 3 Est. Patient 08:41:09 WELL SERVICE FLOOR WORKER Vishal Hui MD [facility] CPT-77747 Level 4 Est. Patient 10:19:35 WELL SERVICE FLOOR WORKER Vishal Hui MD [facility] CPT-99967 Level 3 Est. Patient 13:35:45 CDT Vishal Hui MD [facility] CPT-93261 Level 4 Est. Patient 10:08:37 CDT Vishal Hui MD [facility] CPT-48960 Level 3 Est. Patient 11:22:10 CDT Vishal Hui MD [facility] CPT-98861 Level 3 Est. Patient 11:03:32 CDT Sahara Rodriguez MD [facility]-57341 Level 3 Est. Patient 09:41:35 CDT Vishal Hui MD [facility]-26053 Level 3 Est. Patient 12:00:41 CDT Neeraj Collins MD [facility] CPT-58991 Level 3 Est. Patient 09:16:24 CDT Vishal Hui MD [facility] CPT-92222 Level 4 Est. Patient 13:59:09 CDT Neeraj Collins MD [facility] CPT-88099 Level 3 Est. Patient 15:19:43 CDT Renzo Thornton DO [facility] CPT-49268 Level 3 Est. Patient 18:10:26 CDT Sahara Rodriguez MD [facility]-73482 Level 3 Est. Patient 14:49:50 CDT Vishal Hui MD [facility] CPT-35834 Level 4 Est. Patient 18:41:46 CDT Neeraj Collins MD [facility]-98513 Level 4 Est. Patient 09:18:38 WELL SERVICE FLOOR WORKER Vishal Hui MD [facility] CPT-05979 Level 3 Est. Patient 14:43:55 WELL SERVICE FLOOR WORKER Vishal Hui MD [facility] CPT-22420 Level 3 Est. Patient 15:26:33 WELL SERVICE FLOOR WORKER Sahara Rodriguez MD PhD [facility] CPT-73179 Level 3 Est. Patient 10:32:14 WELL SERVICE FLOOR WORKER Vishal Hui MD [facility] CPT-42901 Level 3 Est. Patient 15:12:52 WELL SERVICE FLOOR WORKER Vishal Hui MD [facility] CPT-22945 Level 4 Est. Patient 09:19:27 CDT Vishal Hui MD [facility] CPT-64830 Level 3 Est. Patient 15:53:00 CDT Renzo Thornton [facility] CPT-91471 Level 3 Est. Patient 15:50:30 CDT Renzo Thornton [facility] CPT-70450 Level 3 Est. Patient 16:55:24 CDT Vishal Hui MD [facility] Procedures Code Procedure Name Date Entry Date Standard Description CPT-J3420 Vitamin B12 1000mcg (Cyanocobalamin) 08:10:26 WELL SERVICE FLOOR WORKER 04/12 CPT-58534 Abx/Therapy Injection 08:10:26 WELL SERVICE FLOOR WORKER CPT-G0438 Initial Annual Wellness Exam 19:01:01 WELL SERVICE FLOOR WORKER CPT-J3420 Vitamin B12 1000mcg (Cyanocobalamin) 16:57:46 CDT 08/14 CPT-30365 Recombivax HB Injection Suspension 5 MCG/0.5ML 08:37:50 WELL SERVICE FLOOR WORKER CPT-31121 Immunization Single Admin 08:37:50 WELL SERVICE FLOOR WORKER CPT-J3420 Vitamin B12 1000mcg (Cyanocobalamin) 08:32:16 WELL SERVICE FLOOR WORKER 03/11 CPT-23308 Abx/Therapy Injection 08:32:16 WELL SERVICE FLOOR WORKER CPT-74338 Chest 2V Frontal and Lat 11:46:38 WELL SERVICE FLOOR WORKER CPT-22258 Venipuncture Draw Fee 09:12:45 WELL SERVICE FLOOR WORKER CPT-J3420 Vitamin B12 1000mcg (Cyanocobalamin) 08:50:15 WELL SERVICE FLOOR WORKER 02/08 CPT-75824 Abx/Therapy Injection 08:50:15 WELL SERVICE FLOOR WORKER CPT-Cryo Cryotherapy 10:19:35 WELL SERVICE FLOOR WORKER CPT-000 Give Appropriate Flu Vaccine 09:22:16 CDT CPT-J3420 Vitamin B12 1000mcg (Cyanocobalamin) 19:08:57 CDT 01/11 CPT-29415 Abx/Therapy Injection 19:08:57 CDT CPT-J3420 Vitamin B12 1000mcg (Cyanocobalamin) 08:19:08 CDT 12/11 CPT-77979 Abx/Therapy Injection 08:19:08 CDT CPT-J3420 Vitamin B12 1000mcg (Cyanocobalamin) 14:48:00 CDT 11/09 CPT-32037 Abx/Therapy Injection 14:47:59 CDT CPT-J3420 Vitamin B12 1000mcg (Cyanocobalamin) 08:34:04 CDT 10/09 CPT-35505 Abx/Therapy Injection 08:34:04 CDT CPT-J3420 Vitamin B12 1000mcg (Cyanocobalamin) 09:18:52 CDT 09/11 CPT-22472 Abx/Therapy Injection 09:18:52 CDT CPT-J3420 Vitamin B12 1000mcg (Cyanocobalamin) 08:35:44 CDT 09/04 CPT-55451 Abx/Therapy Injection 08:35:44 CDT CPT-02572 Immunization Single Admin 11:07:16 CDT CPT-59690 Hepatitis B adult IM 11:07:16 CDT CPT-J3420 Vitamin B12 1000mcg (Cyanocobalamin) 11:00:49 CDT 08/28 CPT-J1040 Depo Medrol 80 mg (Methyl Prednisolone Acetate) 11:00: 49 CDT CPT-94828 Abx/Therapy Injection 11:00:49 CDT CPT-J1040 Depo Medrol 80 mg (Methyl Prednisolone Acetate) 09:16: 23 CDT CPT-J3420 Vitamin B12 1000mcg (Cyanocobalamin) 08:27:05 CDT 08/20 CPT-34499 Abx/Therapy Injection 08:27:05 CDT CPT-69140 Recombivax HB Injection Suspension 5 MCG/0.5ML 10:00:41 CDT CPT-80288 Administration single or combination vaccine inc oral 10 :00:41 CDT CPT-35329 Sono transvag pelvis non OB uterus ovaries cervix 16:36: 57 CDT CPT-91417 LS spine comp w obliq 09:50:55 WE[employer]ICE FLOOR WORKER CPT-51624 Abd compl w upright 09:50:55 WELL SERVICE FLOOR WORKER CPT-J1100 Decadron 4mg (Dexamethasone) 15:51:24 WELL SERVICE FLOOR WORKER CPT-J1030 Depo Medrol 40 mg (Methyl Prednisolone Acetate) 15:51: 24 WELL SERVICE FLOOR WORKER CPT-39465 Abx/Therapy Injection 15:51:24 WELL SERVICE FLOOR WORKER CPT-J1100 Decadron 4mg (Dexamethasone) 15:26:33 WELL SERVICE FLOOR WORKER CPT-J1030 Depo Medrol 40 mg (Methyl Prednisolone Acetate) 15:26: 33 WELL SERVICE FLOOR WORKER CPT-49235 Sono retroperitoneal complete kidneys and bladder 17:15: 30 CDT CPT-76607 Abd compl w upright 16:09:25 CDT CPT-J1100 Decadron 8mg (Dexamethasone) 17:07:57 CDT CPT-33418 Abx/Therapy Injection 17:07:57 CDT CPT-J1100 Decadron 8mg (Dexamethasone) 16:55:24 CDT CPT-70426 Chest 2V Frontal and Lat 16:32:44 CDT
--- OUTSIDE RECORDS SUMMARY | 2016-11-04 13:42 | XMS REPORT | Clinical Summary ---
Author Author Admin, [facility] Organization [facility] [employer] Address Unknown Phone Unavailable Allergies, Adverse Reactions, [...] Irritable bowel syndrome with constipation 564.1 Active Suzna Boo APRN Irritable bowel syndrome Low back [...] a health care facility Vaginitis 616.10 Resolved Vsihal Hui MD Vaginitis and vulvovaginitis, unspecified Mrsa [...] Active Ahmet Carbajal MD Generalized anxiety disorder Aquarium Tank Attendant well woman exam V72.31 Resolved Suzan Boo [...] of status migrainosus Flank pain 789.09 Active Suzna Boo APRN Abdominal pain, other specified site; [...] Boo APRN DYSURIA ICD-788.1 Inactive Suzan Boo NARCOTICS DETECTIVE Cellulitis and abscess of breast ICD-611.0 Inactive Ahmet Carbajal MD Nondisplaced transverse fracture of shaft of left fibula, subsequent encounter for closed fracture with routine healing Inactive Suzan Boo APRN Bronchitis, acute ICD-466.0 Inactive Ahmet Carbajal MD Aquarium Tank Attendant well woman exam ICD-V72.31 Inactive Suzan Boo NARCOTICS DETECTIVE Bronchitis, acute with mild bronchospasm ICD-466.0 Inactive Suzan Boo APRN Tracheitis ICD-464.10 Inactive Suzan Boo APRN Impetigo ICD-684 Inactive Suzan Boo NARCOTICS DETECTIVE Furuncle of buttock ICD-680.5 Inactive Suzan Boo [...] % OINT apply twice a day MUPIROCIN 11250542183 Active Suzan Boo APRN Active BACTRIM DS 800-160 MG TABS 1 twice a day SULFAMETHOXAZOLE- TRIMETHOPRIM 58180518691 Active Suzan Boo APRN Active [id number] 50-325-40 MG TABS 1 to 2 four times a day as needed for headache [id number] 93425617837 Active Suzan Boo APRN Active METOCLOPRAMIDE HCL 10 MG TABS 1 two times as needed for nausea and headaches METOCLOPRAMIDE HCL 03863752326 Active Meena Ortiz MA Active NYSTATIN 812831 UNIT/GM CREA apply three times a day to yeast rash NYSTATIN 46715977086 Active Suzan Boo APRN Active AMITIZA 24 MCG ORAL CAPS one capsule twice daily LUBIPROSTONE 38530441807 Active Suzan Boo APRN Active MIRALAX ORAL POWD 17GMS DAILY IN WATER POLYETHYLENE GLYCOL 3350 74724408645 No Longer Active Suzan Boo APRN Active LACTULOSE 10 GM/15ML ORAL SOLN 30mL oral BID for IBS-C LACTULOSE 43728639447 No Longer Active Suzan Boo APRN Active BACTRIM DS 800-160 MG TAB Take one (1) tablet by mouth twice a day for 5 days TRIMETHOPRIM-SULFAMETHOXAZOLE 73475695006 No Longer Active Suzan Boo APRN Active MUPIROCIN 2 % OINT apply twice a day MUPIROCIN 89931052627 No Longer Active Suzan Boo APRN Active BACTRIM DS 800-160 MG TABS 1 twice a day SULFAMETHOXAZOLE-TRIMETHOPRIM 61876150712 No Longer Active Suzan Boo APRN Active DIFLUCAN 150 MG TABS 1 by mouth for yeast FLUCONAZOLE 51924598798 No Longer Active Suzan Boo APRN Active LINZESS 290 MCG ORAL CAPS 1 tab 30 min prior to first meal each day. LINACLOTIDE 80324759044 No Longer Active Sheila Calderon LPN Active AMITIZA 8 MCG ORAL CAPS 1 tab BID LUBIPROSTONE 71186103782 No Longer Active Lynda Ninoska BHAKTAN Active TESSALON PERLES 100 MG CAPS 1 three times a day as needed for cough BENZONATATE 94380554868 No Longer Active Suzan Boo APRN Active BACTRIM DS 800-160 MG TABS 1 twice a day SULFAMETHOXAZOLE-TRIMETHOPRIM 65458028515 No Longer Active Suzan Boo APRN Active DIFLUCAN 150 MG TABS 1 by mouth for yeast FLUCONAZOLE 26148925038 No Longer Active Suzan Boo APRN Active EQ NICOTINE 21 MG/24HR TRANS PT24 Apply daily to stop smoking NICOTINE 68141100462 No Longer Active Suzan Boo APRN Active PREDNISONE 10 MG TABS 2 daily for 5 days then 1 daily for 5 days PREDNISONE 97414162333 No Longer Active Suzan Boo APRN Active LEVAQUIN 500 MG TABS 1 daily for infection LEVOFLOXACIN 02162053241 No Longer Active Suzan Boo APRN Active TROPICAMIDE 0.5 % OPHTH SOLN 1 drop PRN eye spasms TROPICAMIDE 51126211781 No Longer Active Suzan Boo APRN Active PREDNISONE 20 MG TAB 1 tablet daily x 4 days PREDNISONE 62412353632 No Longer Active Suzan Boo APRN Active ACETAMINOPHEN-CODEINE 120-12 MG/5ML SOLN 5 ml by mouth every 4-6 hours if needed for cough ACETAMINOPHEN-CODEINE 97015403525 No Longer Active Suzan Boo APRN Active KEFLEX 500 MG CAP 1 po qid CEPHALEXIN 54177153631 No Longer Active Suzan Boo APRN Active FLOVENT HFA 110 MCG/ACT AERO 2 puffs inhaled b.i.d. FLUTICASONE PROPIONATE HFA 06023193617 Active Renzo Thornton Active RISPERDAL 4 MG ORAL TABS 1 tab at bedtime RISPERIDONE 39848070001 Active Samantha Rothman RMA Active ZOFRAN 4 MG TABS 1 po q6hr PRN Nausea ONDANSETRON HCL No Longer Active Suzan Boo APRN Active FLUTICASONE PROPIONATE 50 MCG/ACT SUSP 2 sprays each nostril daily before bed. FLUTICASONE PROPIONATE 45031771657 No Longer Active Suzan Boo APRN Active ASPIRIN 325 MG ORAL TABS 1 tab q.d ASPIRIN 12902111022 No Longer Active Suzan Boo APRN Active HALOPERIDOL 10 MG ORAL TABS 1 tab q.d HALOPERIDOL 24318105777 No Longer Active Suzan Boo APRN Active GUAIFENESIN-CODEINE 100-10 MG/5ML SYRP 5ml every 4 to 6 hours as needed for cough GUAIFENESIN-CODEINE 57292873786 No Longer Active Suzan Boo APRN Active ZITHROMAX Z-EARNEST 250 MG TABS 2 today and then 1 daily for 4 days AZITHROMYCIN 79830584298 No Longer Active Suzan Boo APRN Active CLONAZEPAM 1 MG ORAL TABS 1 twice a day and an additional 1 tablet every other day as needed for pseudoseizures or anxiety CLONAZEPAM 51503160937 Active Suzan Boo APRN Active HYDROCODONE-ACETAMINOPHEN 5-325 MG ORAL TABS 1 tab two times a day HYDROCODONE-ACETAMINOPHEN 66960177778 No Longer Active Ahmet Carbajal MD Active LAMICTAL 100 MG ORAL TABS 1 tab 2 times qd. LAMOTRIGINE 01402243778 Active Ahmet Carbajal MD Active PREDNISONE 20 MG TABS 2 daily for 5 days then 1 daily for 5 days PREDNISONE 73718990491 No Longer Active Ahmet Carbajal MD Active FLUTICASONE PROPIONATE 50 MCG/ACT SUSP 1 to 2 sprays each nostril daily for allergies FLUTICASONE PROPIONATE 59343679171 Active Tila Nicolas Active BENADRYL 25 MG CAP 4 po at bedtime for insomnia DIPHENHYDRAMINE HCL 46010426618 No Longer Active Ahmet Carbajal MD Active ADVAIR DISKUS 250-50 MCG/DOSE INH AEPB 1 puff twice a day for asthma FLUTICASONE-SALMETEROL 86655211142 No Longer Active Ahmet Carbajal MD Active KLONOPIN 1 MG ORAL TABS 1 tab po TID CLONAZEPAM 50814644608 No Longer Active Ahmet Carbajal MD Active ABILIFY MAINTENA 400 MG IM SUSR 400mg injection every 26 days ARIPIPRAZOLE 79388010966 No Longer Active Ahmet Carbajal MD Active TRAMADOL HCL 50 MG TABS 1/2-1 tab TID PRN TRAMADOL HCL 68816001037 No Longer Active Ahmet Carbajal MD Active BACTRIM DS 800-160 MG TABS 1 twice a day SULFAMETHOXAZOLE- TRIMETHOPRIM 78903194860 No Longer Active Ahmet Carbajal MD Active PROAIR HFA 108 (90 BASE) MCG/ACT AERS 2 puffs four times a day as needed 2015 ALBUTEROL SULFATE 82657842654 Active Honey Hinton NARCOTICS DETECTIVE Active MONISTAT 7 COMBO PACK WOODROW 100 & 2 MG-% (9GM) VAG KIT 1 applicatorful per vagina q pm x 7 MICONAZOLE NITRATE 06207352287 No Longer Active Ahmet Carbajal MD Active FLAGYL 500 MG TAB 1 tablet by mouth bid METRONIDAZOLE 36985603247 No Longer Active Ahmet Carbajal MD Active OXYCODONE HCL ER 10 MG ORAL T12A 1/2 tab by mouth every 4 hours prn OXYCODONE HCL 23898534460 No Longer Active Ahmet Carbajal MD Active METHYLPREDNISOLONE 4 MG ORAL TABS po daily METHYLPREDNISOLONE 16365448304 No Longer Active Ahmet Carbajal MD Active LEVOFLOXACIN 500 MG ORAL TABS po daily LEVOFLOXACIN 08334722777 No Longer Active Ahmet Carbajal MD Active VIIBRYD 10 MG ORAL TABS Take 1 tablet once a day VILAZODONE HCL 36144014264 No Longer Active Ahmet Carbajal MD Active TOPAMAX 50 MG ORAL TABS 1 tab twice daily TOPIRAMATE 19908607944 No Longer Active Ahmet Carbajal MD Active DICLOFENAC SODIUM 50 MG TBEC 1 tablet by mouth four times daily PRN Pain 2015 DICLOFENAC SODIUM 27197415652 No Longer Active Ahmet Carbajal MD Active ADZENYS XR-ODT 6.3 MG ORAL TBED 1 tab po daily for ADHD AMPHETAMINE 84686533455 No Longer Active Ahmet Carbajal MD Active CHANTIX 1 MG TABS 1 twice a day to help quit smoking VARENICLINE TARTRATE 60212286789 No Longer Active Dipika Burgos MD Active CHANTIX STARTING MONTH EARNEST 0.5 MG X 11 & 1 MG X 42 TABS take as directed 2015 VARENICLINE TARTRATE 32601276410 No Longer Active Dipika Burgos MD Active TESSALON PERLES 100 MG CAP 1 to 2 tablets by mouth 3 times daily as needed for cough BENZONATATE 63197622816 No Longer Active Luigi Martínez APRN Active IMITREX 50 MG ORAL TABS 0.5 po x 1 PRN Headache. May repeat dose x 1 in 2 hours if needed SUMATRIPTAN SUCCINATE 71889453972 Active TAMARA Casey Active HYDROCODONE-ACETAMINOPHEN 5-325 MG TABS 1 to 2 four times a day as needed for pain use until can be seen by specialist HYDROCODONE- ACETAMINOPHEN 17654719549 No Longer Active Vishal Hui MD Active PROAIR HFA 108 (90 BASE) MCG/ACT AERS 2 puffs four times a day as needed 2015 ALBUTEROL SULFATE 15390759552 No Longer Active Vishal Hui MD Active PREDNISONE 20 MG TABS 2 daily for 5 days then 1 daily for 5 days PREDNISONE 78001867636 No Longer Active Vishal Hui MD Active ZITHROMAX Z-EARNEST 250 MG TABS 2 today and then 1 daily for 4 days AZITHROMYCIN 23327036635 No Longer Active Vishal Hui MD Active DICLOFENAC POTASSIUM TABS Take 1 tablet twice a day (pt. is not sure of the dose.) DICLOFENAC POTASSIUM TABS 05842099721 No Longer Active Vishal Hui MD Active VERAPAMIL HCL ER 120 MG ORAL CR-TABS Take 1 tablet by mouth twice a day. VERAPAMIL HCL 90718859022 Active Vishal Hui MD Active FLAGYL 500 MG TAB 1 tablet by mouth bid METRONIDAZOLE 63856719595 No Longer Active Vishal Hui MD Active VALIUM 5 MG TAB Take 1-2 tablets daily DIAZEPAM 85317314074 No Longer Active Fabiola Johnson APRN Active METOPROLOL TARTRATE 25 MG ORAL TABS 1/2 tablet twice daily for heart rate and blood pressure METOPROLOL TARTRATE 44826811889 No Longer Active Fabiola Johnson APRN Active MIRALAX PACK 1 po qd PRN Constipation POLYETHYLENE GLYCOL 3350 77175282085 No Longer Active Ahmet Carbajal MD Active MINIPRESS 2 MG CAPS 4 cap po at night PRAZOSIN HCL 13213709759 No Longer Active Ahmet Carbajal MD Active PIROXICAM 20 MG CAPS 1 cap po qd PRN Pain PIROXICAM 44325057645 No Longer Active Ahmet Carbajal MD Active TRAMADOL HCL 50 MG TABS 1-2 po TID PRN Pain TRAMADOL HCL 21463765867 No Longer Active Ahmet Carbajal MD Active METOPROLOL TARTRATE 50 MG TAB 1 po bid METOPROLOL TARTRATE 78820285709 No Longer Active Ahmet Carbajal MD Active ABILIFY 15 MG ORAL TABS 1 tab daily ARIPIPRAZOLE 48922713805 No Longer Active Ahmet Carbajal MD Active PROZAC 20 MG ORAL CAPS 1 tab daily FLUOXETINE HCL 71669319109 No Longer Active Ahmet Carbajal MD Active AMBIEN 5 MG ORAL TABS 1 tab at bedtime ZOLPIDEM TARTRATE 27118943412 No Longer Active Ahmet Carbajal MD Active PREDNISONE 20 MG TAB 2 tabs daily for 4 days, 1 tab daily for 4 days, 1/2 tab daily for 4 days PREDNISONE 89238110027 No Longer Active Ahmet Carbajal MD Active KEFLEX 500 MG CAP 1 po TID x 10 days CEPHALEXIN 86260443406 No Longer Active Vishal Hui MD Active SAPHRIS 5 MG SUBL 1 po bid ASENAPINE MALEATE 01453529613 No Longer Active Jillina Mauricio NORIEGA Active LATUDA 80 MG TABS Take one by mouth daily LURASIDONE HCL 04009392251 No Longer Active Jillina Fradwightl NARCOTICS DETECTIVE Active AMLODIPINE BESYLATE 5 MG TABS 1 tablet by mouth daily AMLODIPINE BESYLATE 45605511399 No Longer Active Jillina Fradwightl NARCOTICS DETECTIVE Active AMITRIPTYLINE HCL 100 MG TAB one at hs AMITRIPTYLINE HCL 09954919898 No Longer Active Vishal Hui MD Active TRAZODONE HCL 100 MG TAB take 1 at bedtime TRAZODONE HCL 15155461306 No Longer Active Vishal Hui MD Active VYVANSE 40 MG CAPS 1 daily, LISDEXAMFETAMINE DIMESYLATE 36435207573 No Longer Active Vishal Hui MD Active IBUPROFEN 600 MG TAB 1 po TID PRN IBUPROFEN 60178745677 No Longer Active Vishal Hui MD Active PROZAC 20 MG CAP Take one by mouth daily FLUOXETINE HCL 94788296090 No Longer Active Vishal Hui MD Active BACTRIM DS 800-160 MG TABS 1 pill by mouth twice daily SULFAMETHOXAZOLE-TRIMETHOPRIM 89383715745 No Longer Active Sahara Rodriguez MD PhD Active DIFLUCAN 150 MG TAB 1 tablet by mouth daily FLUCONAZOLE 97040457636 No Longer Active Vishal Hui MD Active TIZANIDINE HCL 4 MG TABS 1 po q6hr PRN Muscle Spasm/Back Pain TIZANIDINE HCL 58139174528 Active TAMARA Casey Active CLINDAMYCIN HCL 150 MG CAPS 1 four times a day CLINDAMYCIN HCL 58336263416 No Longer Active Neeraj Collins MD Active KEFLEX 500 MG ORAL CAPS 1 cap QID by mouth CEPHALEXIN 10264065620 No Longer Active Neeraj Collins MD Active DIFLUCAN 150 MG TABS 1 pill every other day x 2 doses FLUCONAZOLE 81022270788 No Longer Active Sahara Rodriguez MD PhD Active MELATONIN 3 MG CAPS 2 po q hs MELATONIN 90890272367 No Longer Active Sahara Rodriguez MD PhD Active MULTIVITAMINS CAPS Take one by mouth daily MULTIPLE VITAMIN 34933005864 No Longer Active Sahara Rodriguez MD PhD Active BACTRIM DS 800-160 MG TAB 1 tab by mouth twice daily TRIMETHOPRIM-SULFAMETHOXAZOLE 67132036426 No Longer Active Sahara Rodriguez MD PhD Active [facility] PROBIOTIC ORAL CHEW 2 daily po PROBIOTIC PRODUCT 09271064465 No Longer Active Sahara Rodriguez MD PhD Active BACTRIM DS 800-160 MG TABS 1 po BID x 7 days SULFAMETHOXAZOLE-TRIMETHOPRIM 73812115865 No Longer Active Vishal Hui MD Active CHANTIX STARTING MONTH EARNEST 0.5 MG X 11 & 1 MG X 42 TABS 0.5mg daily for 3 days , then 0.5mg BID for 4 days, then 1mg BID VARENICLINE TARTRATE 43179541084 No Longer Active Lisette Scarrow, RMA Active VERAPAMIL HCL CR 120 MG TAB CR 1 po bid VERAPAMIL HCL 57100657551 No Longer Active Vishal Hui MD Active METOPROLOL SUCCINATE 50 MG TB24 1 tablet by mouth daily METOPROLOL SUCCINATE 99601800439 No Longer Active Vishal Hui MD Active SAPHRIS 10 MG SUBL 1 tab po bid ASENAPINE MALEATE 17022886862 No Longer Active Vishal Hui MD Active LISINOPRIL 20 MG TABS 1 tab po qd LISINOPRIL 60351632471 No Longer Active Vishal Hui MD Active LATUDA 20 MG TABS Take one by mouth daily LURASIDONE HCL 54054337015 No Longer Active Vishal Hui MD Active TRAZODONE HCL 50 MG TABS 1/2 tab po qd prn for anxiety TRAZODONE HCL 40390115836 No Longer Active Vishal Hui MD Active OMEPRAZOLE 20 MG TBEC 1 po q a.m. 30min prior to first food intake OMEPRAZOLE 20677469577 Active Bertha Kirby, RMA Active RANITIDINE HCL 150 MG CAPS 1 twice a day RANITIDINE HCL 61665625595 Active Lynda Xiao LPN Active LINZESS 290 MCG CAPS Take one by mouth daily LINACLOTIDE 23593082594 No Longer Active Vishal Hui MD Active SAPHRIS 5 MG SUBL 1 tab po qd ASENAPINE MALEATE 84324101475 No Longer Active Vishal Hui MD Active ZALEPLON 10 MG CAPS 1 cap po every other night ZALEPLON 91384081645 No Longer Active Vishal Hui MD Active LYRICA 50 MG CAPS 1 tab po TID PREGABALIN 43948270245 No Longer Active Vishal Hui MD Active LORATADINE 10 MG TABS 1 tab po qd LORATADINE 60214594001 No Longer Active Vishal Hui MD Active VERAPAMIL HCL ER 180 MG CR-TABS 1 tab po bid VERAPAMIL HCL 58841788944 No Longer Active Vishal Hui MD Active MIRALAX POWD 1 capfull once daily POLYETHYLENE GLYCOL 3350 60660374993 No Longer Active Vishal Hui MD Active PREDNISONE 20 MG TABS 1 tab po qd PREDNISONE 85919462820 No Longer Active Renzo Thornton DO Active LEVOFLOXACIN 500 MG TABS 1 tab po qd LEVOFLOXACIN 34983678765 No Longer Active Renzo Thornton DO Active BUSPIRONE HCL 15 MG TABS 1 tab po TID BUSPIRONE HCL 39904097465 No Longer Active Renzo Thornton DO Active BENZTROPINE MESYLATE 1 MG TABS 1 tab po qd BENZTROPINE MESYLATE 13407572581 No Longer Active Renzo Thornton DO Active ATENOLOL 25 MG TABS 1 tab po qd ATENOLOL 54830105155 No Longer Active Renzo Thornton DO Active ESCITALOPRAM OXALATE 20 MG TABS 1 tab po qd ESCITALOPRAM OXALATE 34207300064 No Longer Active Renzo Thornton DO Active ADVAIR DISKUS 250-50 MCG/DOSE AEPB 1 puff BID FLUTICASONE-SALMETEROL 48379985952 No Longer Active Renzo Thornton DO Active PREDNISONE 20 MG TAB 2 tabs daily for 3 days, 1 tab daily for 3 days, 1/2 tab daily for 2 days PREDNISONE 88374613728 No Longer Active Vishal Hui MD Active CEFDINIR 300 MG CAPS by mouth twice a day CEFDINIR 01199240748 No Longer Active Vishal Hui MD Active LANSOPRAZOLE 30 MG CPDR 1 cap po qd LANSOPRAZOLE 72154330172 No Longer Active Vishal Hui MD Active BACLOFEN 20 MG TABS 1 tab po tid BACLOFEN 29124721476 No Longer Active Vishal W Dillow MD Active ADVAIR DISKUS 250-50 MCG/DOSE AEPB 1 puff BID ADVAIR DISKUS 250-50 MCG/DOSE AEPB FLUTICASONE-SALMETEROL Inactive ESCITALOPRAM OXALATE 20 MG TABS 1 tab po qd ESCITALOPRAM OXALATE 20 MG TABS 214780 ESCITALOPRAM OXALATE Inactive ATENOLOL 25 MG TABS 1 tab po qd ATENOLOL 25 MG TABS 250560 ATENOLOL Inactive BENZTROPINE MESYLATE 1 MG TABS 1 tab po qd BENZTROPINE MESYLATE 1 MG TABS 355463 BENZTROPINE MESYLATE Inactive BUSPIRONE HCL 15 MG TABS 1 tab po TID BUSPIRONE HCL 15 MG TABS 616021 BUSPIRONE HCL Inactive LEVOFLOXACIN 500 MG TABS 1 tab po qd LEVOFLOXACIN 500 MG TABS 999343 LEVOFLOXACIN Inactive PREDNISONE 20 MG TABS 1 tab po qd PREDNISONE 20 MG TABS 901904 PREDNISONE Inactive MIRALAX POWD 1 capfull once daily MIRALAX POWD 849664 POLYETHYLENE GLYCOL 3350 Inactive VERAPAMIL HCL ER 180 MG CR-TABS 1 tab po bid VERAPAMIL HCL ER 180 MG CR-TABS VERAPAMIL HCL Inactive LORATADINE 10 MG TABS 1 tab po qd LORATADINE 10 MG TABS 447977 LORATADINE Inactive LYRICA 50 MG CAPS 1 tab po TID LYRICA 50 MG CAPS PREGABALIN Inactive ZALEPLON 10 MG CAPS 1 cap po every other night ZALEPLON 10 MG CAPS 606567 ZALEPLON Inactive SAPHRIS 5 MG SUBL 1 tab po qd SAPHRIS 5 MG SUBL ASENAPINE MALEATE Inactive TRAZODONE HCL 50 MG TABS 1/2 tab po qd prn for anxiety TRAZODONE HCL 50 MG TABS 940264 TRAZODONE HCL Inactive LATUDA 20 MG TABS Take one by mouth daily LATUDA 20 MG TABS LURASIDONE HCL Inactive LISINOPRIL 20 MG TABS 1 tab po qd LISINOPRIL 20 MG TABS 297434 LISINOPRIL Inactive SAPHRIS 10 MG SUBL 1 [...] twice daily BACTRIM DS 800-160 MG TAB 901652 TRIMETHOPRIM-SULFAMETHOXAZOLE Inactive MULTIVITAMINS CAPS Take one by mouth daily MULTIVITAMINS CAPS MULTIPLE VITAMIN Inactive MELATONIN 3 MG CAPS 2 po q hs MELATONIN 3 MG CAPS 050379 MELATONIN Inactive KEFLEX 500 MG ORAL CAPS 1 cap QID by mouth KEFLEX 500 MG ORAL CAPS 158719 CEPHALEXIN Inactive CLINDAMYCIN HCL 150 MG CAPS 1 four times a day CLINDAMYCIN HCL 150 MG CAPS 733858 CLINDAMYCIN HCL Inactive DIFLUCAN 150 MG TAB 1 tablet by mouth daily DIFLUCAN 150 MG TAB 012231 FLUCONAZOLE Inactive PROZAC 20 MG CAP Take one by mouth daily PROZAC 20 MG CAP 767801 FLUOXETINE HCL Inactive IBUPROFEN 600 MG TAB 1 po TID PRN IBUPROFEN 600 MG TAB 059428 IBUPROFEN Inactive VYVANSE 40 MG CAPS 1 daily, VYVANSE 40 MG CAPS LISDEXAMFETAMINE DIMESYLATE Inactive TRAZODONE HCL 100 MG TAB take 1 at bedtime TRAZODONE HCL 100 MG TAB 547462 TRAZODONE HCL Inactive AMITRIPTYLINE HCL 100 MG TAB one at hs AMITRIPTYLINE HCL 100 MG TAB 333391 AMITRIPTYLINE HCL Inactive AMLODIPINE BESYLATE 5 MG TABS 1 tablet by mouth daily AMLODIPINE BESYLATE 5 MG TABS 025209 AMLODIPINE BESYLATE Inactive LATUDA 80 MG TABS Take one by mouth daily LATUDA 80 MG TABS LURASIDONE HCL Inactive SAPHRIS 5 MG SUBL 1 po bid SAPHRIS 5 MG SUBL ASENAPINE MALEATE Inactive PREDNISONE 20 MG TAB 2 tabs daily for 4 days, 1 tab daily for 4 days, 1/2 tab daily for 4 days PREDNISONE 20 MG TAB 092641 PREDNISONE Inactive AMBIEN 5 MG ORAL TABS 1 tab at bedtime AMBIEN 5 MG ORAL TABS 766243 ZOLPIDEM TARTRATE Inactive PROZAC 20 MG ORAL CAPS 1 tab daily PROZAC 20 MG ORAL CAPS 534381 FLUOXETINE HCL Inactive ABILIFY 15 MG ORAL TABS 1 tab daily ABILIFY 15 MG ORAL TABS 920030 ARIPIPRAZOLE Inactive METOPROLOL TARTRATE 50 MG TAB 1 po bid METOPROLOL TARTRATE 50 MG TAB 455391 METOPROLOL TARTRATE Inactive TRAMADOL HCL 50 MG TABS 1-2 po TID PRN Pain TRAMADOL HCL 50 MG TABS 393667 TRAMADOL HCL Inactive PIROXICAM 20 MG CAPS 1 cap po qd PRN Pain PIROXICAM 20 MG CAPS 204330 PIROXICAM Inactive MINIPRESS 2 MG CAPS 4 cap po at night MINIPRESS 2 MG CAPS 269129 PRAZOSIN HCL Inactive MIRALAX PACK 1 po qd PRN Constipation MIRALAX PACK 586033 POLYETHYLENE GLYCOL 3350 Inactive METOPROLOL TARTRATE 25 MG ORAL TABS 1/2 tablet twice daily for heart rate and blood pressure METOPROLOL TARTRATE 25 MG ORAL TABS 797794 METOPROLOL TARTRATE Inactive VALIUM 5 MG TAB Take 1-2 tablets daily VALIUM 5 MG TAB 678812 DIAZEPAM Inactive FLAGYL 500 MG TAB 1 tablet by mouth bid FLAGYL 500 MG TAB 260755 METRONIDAZOLE Inactive DICLOFENAC POTASSIUM TABS Take 1 tablet twice a day (pt. is not sure of the dose.) DICLOFENAC POTASSIUM TABS DICLOFENAC POTASSIUM TABS Inactive ZITHROMAX Z-EARNEST 250 MG TABS 2 today and then 1 daily for 4 days ZITHROMAX Z-EARNEST 250 MG TABS 8246533 AZITHROMYCIN Inactive PREDNISONE 20 MG TABS 2 daily for 5 days then 1 daily for 5 days PREDNISONE 20 MG TABS 305522 PREDNISONE Inactive PROAIR HFA 108 (90 BASE) MCG/ACT AERS 2 puffs four times a day as needed 2015 PROAIR HFA 108 (90 BASE) MCG/ACT AERS ALBUTEROL SULFATE Inactive HYDROCODONE-ACETAMINOPHEN 5-325 MG TABS 1 to 2 four times a day as needed for pain use until can be seen by specialist HYDROCODONE- ACETAMINOPHEN 5-325 MG TABS 324114 HYDROCODONE-ACETAMINOPHEN Inactive TESSALON PERLES 100 MG CAP 1 to 2 tablets by mouth 3 times daily as needed for cough TESSALON PERLES 100 MG CAP 772138 BENZONATATE Inactive CHANTIX STARTING MONTH EARNEST 0.5 [...] Pain 2015 DICLOFENAC SODIUM 50 MG TBEC 867039 DICLOFENAC SODIUM Inactive TOPAMAX 50 MG ORAL TABS 1 tab twice daily TOPAMAX 50 MG ORAL TABS 697774 TOPIRAMATE Inactive VIIBRYD 10 MG ORAL TABS Take 1 tablet once a day VIIBRYD 10 MG ORAL TABS VILAZODONE HCL Inactive LEVOFLOXACIN 500 MG ORAL TABS po daily LEVOFLOXACIN 500 MG ORAL TABS 690001 LEVOFLOXACIN Inactive METHYLPREDNISOLONE 4 MG ORAL TABS po daily METHYLPREDNISOLONE 4 MG ORAL TABS 326424 METHYLPREDNISOLONE Inactive OXYCODONE HCL ER 10 MG ORAL T12A 1/2 tab by mouth every 4 hours prn OXYCODONE HCL ER 10 MG ORAL T12A OXYCODONE HCL Inactive FLAGYL 500 MG TAB 1 tablet by mouth bid FLAGYL 500 MG TAB 797631 METRONIDAZOLE Inactive MONISTAT 7 COMBO PACK WOODROW 100 & 2 MG-% (9GM) VAG KIT 1 applicatorful per vagina q pm x 7 MONISTAT 7 COMBO PACK WOODROW 100 & 2 MG-% (9GM) VAG KIT MICONAZOLE NITRATE Inactive BACTRIM DS 800-160 MG TABS 1 twice a day BACTRIM DS 800-160 MG TABS 852779 SULFAMETHOXAZOLE-TRIMETHOPRIM Inactive TRAMADOL HCL 50 MG TABS 1/2-1 tab TID PRN TRAMADOL HCL 50 MG TABS 692218 TRAMADOL HCL Inactive ABILIFY MAINTENA 400 MG IM SUSR 400mg injection every 26 days ABILIFY MAINTENA 400 MG IM SUSR ARIPIPRAZOLE Inactive KLONOPIN 1 MG ORAL TABS 1 tab po TID KLONOPIN 1 MG ORAL TABS 034024 CLONAZEPAM Inactive ADVAIR DISKUS 250-50 MCG/DOSE INH AEPB 1 puff twice a day for asthma ADVAIR DISKUS 250-50 MCG/DOSE INH AEPB FLUTICASONE- SALMETEROL Inactive BENADRYL 25 MG CAP 4 po at bedtime for insomnia BENADRYL 25 MG CAP DIPHENHYDRAMINE HCL Inactive PREDNISONE 20 MG TABS 2 daily for 5 days then 1 daily for 5 days PREDNISONE 20 MG TABS 332291 PREDNISONE Inactive HYDROCODONE-ACETAMINOPHEN 5-325 MG ORAL TABS 1 tab two times a day HYDROCODONE-ACETAMINOPHEN 5-325 MG ORAL TABS 073345 HYDROCODONE-ACETAMINOPHEN Inactive ZITHROMAX Z-EARNEST 250 MG TABS 2 today and then 1 daily for 4 days ZITHROMAX Z-EARNEST 250 MG TABS 6075313 AZITHROMYCIN Inactive GUAIFENESIN-CODEINE 100-10 MG/5ML SYRP 5ml every 4 to 6 hours as needed for cough GUAIFENESIN-CODEINE 100-10 MG/5ML SYRP 686720 GUAIFENESIN-CODEINE Inactive HALOPERIDOL 10 MG ORAL TABS 1 tab q.d HALOPERIDOL 10 MG ORAL TABS 745114 HALOPERIDOL Inactive ASPIRIN 325 MG ORAL TABS 1 tab q.d ASPIRIN 325 MG ORAL TABS [id number] ASPIRIN Inactive FLUTICASONE PROPIONATE 50 MCG/ACT SUSP 2 sprays each nostril daily before bed. FLUTICASONE PROPIONATE 50 MCG/ACT SUSP [id number] FLUTICASONE PROPIONATE Inactive ZOFRAN 4 MG TABS 1 po q6hr PRN Nausea ZOFRAN 4 MG TABS [id number] ONDANSETRON HCL Inactive KEFLEX 500 MG CAP 1 po qid KEFLEX 500 MG CAP [id number] CEPHALEXIN Inactive ACETAMINOPHEN-CODEINE 120-12 MG/5ML SOLN 5 ml by mouth every 4-6 hours if needed for cough ACETAMINOPHEN-CODEINE 120-12 MG/5ML SOLN [id number] ACETAMINOPHEN-CODEINE Inactive PREDNISONE 20 MG TAB 1 tablet daily x 4 days PREDNISONE 20 MG TAB [id number] PREDNISONE Inactive TROPICAMIDE 0.5 % OPHTH SOLN 1 drop PRN eye spasms TROPICAMIDE 0.5 % OPHTH SOLN [id number] TROPICAMIDE Inactive LEVAQUIN 500 MG TABS 1 daily for infection LEVAQUIN 500 MG TABS 842417 LEVOFLOXACIN Inactive PREDNISONE 10 MG TABS 2 daily for 5 days then 1 daily for 5 days PREDNISONE 10 MG TABS 018577 PREDNISONE Inactive EQ NICOTINE 21 MG/24HR TRANS [...] for cough TESSALON PERLES 100 MG CAPS 530182 BENZONATATE Inactive AMITIZA 8 MCG ORAL CAPS [...] twice a day MUPIROCIN 2 % OINT 545312 MUPIROCIN Inactive BACTRIM DS 800-160 MG TAB Take one (1) tablet by mouth twice a day for 5 days BACTRIM DS 800-160 MG TAB [id number] TRIMETHOPRIM- SULFAMETHOXAZOLE Inactive LACTULOSE 10 GM/15ML ORAL SOLN 30mL oral BID for IBS-C LACTULOSE 10 GM/15ML ORAL SOLN 063598 LACTULOSE Inactive MIRALAX ORAL POWD 17GMS DAILY IN WATER MIRALAX ORAL POWD 974783 POLYETHYLENE GLYCOL 3350 Inactive CEFDINIR 300 MG CAPS by mouth twice a day CEFDINIR 300 MG CAPS 575058 CEFDINIR Inactive PREDNISONE 20 MG TAB 2 tabs daily for 3 days, 1 tab daily for 3 days, 1/2 tab daily for 2 days PREDNISONE 20 MG TAB 752392 PREDNISONE Inactive BACTRIM DS 800-160 MG TABS 1 po BID x 7 days BACTRIM DS 800-160 MG TABS 19820521 SULFAMETHOXAZOLE-TRIMETHOPRIM Inactive DIFLUCAN 150 MG TABS 1 pill every other day x 2 doses DIFLUCAN 150 MG TABS 322971 FLUCONAZOLE Inactive BACTRIM DS 800-160 MG TABS 1 pill by mouth twice daily BACTRIM DS 800-160 MG TABS 19820521 SULFAMETHOXAZOLE-TRIMETHOPRIM Inactive KEFLEX 500 MG CAP 1 po TID x 10 days KEFLEX 500 MG CAP 682765 CEPHALEXIN Inactive Advance Directives Directive Description Start [...] Measured blood pressure, diastolic 84 mm[Hg] BP mcnlaly blood pressure, systolic 136 mm[Hg] BP sys pulse rate E&M 114 /min Heart rate temperature E&M 98.2 [degF] Body temperature blood pressure, diastolic 74 mm[Hg] BP mcanlly blood pressure, systolic 107 mm[Hg] BP sys [...] % 11.0-15.0 platelet count 443 THOUSAND/UL 10*3/mm3 718-851 0723/03/01 mean platelet volume 8.2 fL 7.5-12.5 leukocyte [...] % 11.0-15.0 platelet count 349 THOUSAND/UL 10*3/mm3 078-708 4995/04/12 mean platelet volume 8.4 fL 7.5-12.5 Lab Report: CBC W/DIFF, Comp. Metabolic Panel, HGBA1C, Magnesium - Chemistry sodium, serum 141 mmol/L 602-153 6114/07/24 carbon dioxide, venous blood 27.8 mmol/L 21.0-32.0 [...] 369 10^3/MM^3 10*3/mm3 142-424 Lab Report: Chlamydia/GC APTIMA/90003 - Lab chlamydia DNA probe NOT DETECTED NOT DETECTED Lab Report: Chlamydia/GC APTIMA/32932 - Microbiology Neisseria gonorrhoeae DNA probe NOT DETECTED NOT DETECTED Lab Report: Chlamydia/GC APTIMA/36770, Urinalysis, Complete, with Reflex ... - Lab chlamydia DNA probe NOT DETECTED NOT DETECTED Lab Report: Chlamydia/GC APTIMA/82828, Urinalysis, Complete, with Reflex ... - Microbiology Neisseria gonorrhoeae DNA probe NOT DETECTED NOT DETECTED Lab Report: Chlamydia/GC APTIMA/29510, Urinalysis, Complete, with Reflex ... - Urinalysis microalbumin/total urine volume 2 mg/L Units converted. See lab report for original value. microalbumin/creatinine ratio, urine 9 MCG/MG CREAT mg/L <30 Lab Report: Comp. Metabolic Panel - Chemistry sodium, serum 140 mmol/L 490-661 7466/08/08 carbon dioxide, venous blood 33.7 mmol/L 21.0-32.0 potassium, serum 5.0 mmol/L 3.5-5.2 chloride, serum 103 mmol/L 98-107 blood glucose 80 mg/dL 65-110 urea nitrogen, blood 13 mg/dL 7-18 creatinine, serum 0.88 mg/dL 0.55-1.30 alanine aminotransferase (SGPT), serum 54 U/L 12-78 aspartate aminotransferase (SGOT), serum 29 U/L 15-37 calcium, serum 9.7 mg/dL 8.5-10.1 bilirubin, serum, total 0.30 mg/dL 0.00-1.00 sodium, serum 140 mmol/L 350-230 0436/06/28 carbon dioxide, venous blood 23.8 mmol/L 21.0-32.0 [...] negative Encounters Code Encounter Date Provider Facility CPT-42041 Level 3 Est. [facility]36[facility] Est[facility] Patient 10:53:17 [facility] Level 3 Est. Patient 11:08:35 CDT Suzan [facility] CPT-75013 Level 3 Est. Patient 15:55:20 CDT Suzan [facility] CPT-36718 Level 4 Est. Patient 10:49:34 CDT Suzan [facility] CPT-80211 Level 3 Est. Patient 10:00:25 [facility] Level 3 Est. Patient 10:29:30 [facility] Level 3 Est. Patient 11:04:38 CDT Renzo Thornton [facility] CPT-84720 Level 3 Est. Patient 11:15:58 [employer] Renzo Thornton [facility] CPT-94197 Level 3 Est. Patient 15:28:23 [employer] Suzan Boo [facility] CPT-20090 Level 4 Est. Patient 10:20:54 [employer] Suzan Boo [facility] CPT-67822 Level 3 Est. Patient 11:47:37 [employer] Ahmet Carbajal MD [facility] CPT-01028 Level 3 Est. Patient 10:40:11 [employer] Ahmet Carbajal MD [facility] CPT-73187 Level 3 Est. Patient 15:07:06 [employer] Neeraj Collins MD [facility] CPT-20075 Level 4 Est. Patient 14:45:00 [employer] Ahmet Carbajal MD [facility] CPT-13116 Level 3 Est. Patient 13:59:59 CDT Luigi Martínez [facility] CPT-15010 Level 3 Est. Patient 18:18:53 CDT Neeraj Collins MD [facility] CPT-97660 Level 3 Est. Patient 15:50:44 CDT Vishal Hui MD [facility] CPT-94300 Level 3 Est. Patient 11:36:17 CDT Ahmet Carbajal MD [facility] CPT-15822 Level 3 Est. Patient 13:29:16 CDT Vishal Hui MD [facility] CPT-44267 Level 3 Est. Patient 14:27:52 CDT Neeraj Collins MD [facility] CPT-60795 Level 3 Est. Patient 08:56:03 CDT Luigi Martínez [facility] CPT-39461 Level 4 Est. Patient 12:11:48 CDT Fabiola Johnson [facility] CPT-74941 Level 3 New Patient 16:53:37 CDT Albert Caldera MD [facility] CPT-70666 Level 3 Est. Patient 11:25:49 CDT Renzo Thornton DO [facility] CPT-09155 Level 3 Est. Patient 15:22:01 CDT Ahmet Carbajal MD [facility] CPT-95785 Level 4 Est. Patient 09:00:51 [employer] Vishal Hui MD [facility] CPT-51500 Level 3 Est. Patient 11:37:33 [employer] Vishal Hui MD [facility] CPT-79308 Level 3 Est. Patient 08:41:09 [employer] Vishal Hui MD [facility] CPT-46868 Level 4 Est. Patient 10:19:35 [employer] Vishal Hui MD [facility]-71570 Level 3 Est. Patient 13:35:45 CDT Vishal Hui MD [facility] CPT-55810 Level 4 Est. Patient 10:08:37 CDT Vishal Hui MD [facility]-70089 Level 3 Est. Patient 11:22:10 CDT Vishal Hui MD [facility] CPT-22383 Level 3 Est. Patient 11:03:32 CDT Sahara Rodriguez MD PhD [facility]-70118 Level 3 Est. Patient 09:41:35 CDT Vishal Hui MD [facility]-20097 Level 3 Est. Patient 12:00:41 CDT Neeraj Collins MD [facility]-44015 Level 3 Est. Patient 09:16:24 CDT Vishal Hui MD [facility] CPT-30172 Level 4 Est. Patient 13:59:09 CDT Neeraj Collins MD [facility]-40429 Level 3 Est. Patient 15:19:43 CDT Renzo Thornton DO [facility] CPT-43315 Level 3 Est. Patient 18:10:26 CDT Sahara Rodriguez MD PhD [facility]-11867 Level 3 Est. Patient 14:49:50 CDT Vishal Hui MD [facility]-28599 Level 4 Est. Patient 18:41:46 CDT Neeraj Collins MD [facility]-19109 Level 4 Est. Patient 09:18:38 [employer] Vishal Hui MD [facility]-42144 Level 3 Est. Patient 14:43:55 [employer] Vishal Hui MD [facility]-46237 Level 3 Est. Patient 15:26:33 [employer] Sahara Rodriguez MD PhD [facility] CPT-33026 Level 3 Est. Patient 10:32:14 [employer] Vishal Hui MD [facility] CPT-71751 Level 3 Est. Patient 15:12:52 [employer] Vishal Hui MD [facility] CPT-26427 Level 4 Est. Patient 09:19:27 CDT Vishal Hui MD [facility] CPT-29668 Level 3 Est. Patient 15:53:00 CDT Renzo Thornton [facility] CPT-26130 Level 3 Est. Patient 15:50:30 CDT Renzo Thornton [facility] CPT-98608 Level 3 Est. Patient 16:55:24 CDT Vishal Hui MD [facility] Procedures Code Procedure Name Date Entry Date Standard Description CPT-84144 UA Dip Auto (Floor Use Only) 11:36:47 CDT CPT-98914 Venipuncture Draw Fee 10:53:17 CDT CPT-99908 EKG Trac and Interp - XRAY USE ONLY 15:59:30 CDT 09/13 CPT-41869 Chest 1V Frontal - XRAY USE ONLY 15:59:30 CDT CPT-44939 Venipuncture Draw Fee 15:44:02 CDT CPT-82747 Venipuncture Draw Fee 08:41:12 CDT CPT-02579 Abd compl w upright - XRAY USE ONLY 10:27:59 CDT 06/28 CPT-34036 Smoking Cessation counseling 11:15:58 [employer] CPT-G0439 [facility] Annual Wellness Exam 09:30:58 [employer] CPT-99141 TSH - LAB USE ONLY 08:50:26 [employer] CPT-96646 CBC - LAB USE ONLY 08:50:26 [employer] CPT-32239 Venipuncture Draw Fee 08:50:26 [employer] CPT-82085 Abx/Therapy Injection 17:34:30 [employer] CPT-91611 Nexplanon Removal with Reinsertion 14:09:32 CDT CPT-J7307 Nexplanon (Implant) 14:09:32 CDT CPT-OV Office Visit 14:09:32 CDT CPT-92643 UA w micro - LAB USE ONLY 16:21:13 CDT CPT-96325 Wet Mount - LAB USE ONLY 16:21:13 CDT CPT-90370 First Vx - Ix admin for Medicare patients 14:37:47 CDT CPT-87193 Fluzone Preservative Free Intramuscular Suspension 14:37 :47 CDT CPT-85224 Abx/Therapy Injection 13:54:22 CDT CPT-31014 Abx/Therapy Injection 08:47:09 CDT CPT-20535 Abx/Therapy Injection 13:29:56 CDT CPT-94176 Abx/Therapy Injection 08:36:16 CDT CPT-54944 Wet Mount - LAB USE ONLY 17:44:58 CDT CPT-72837 UA w micro - LAB USE ONLY 17:44:58 CDT CPT-78563 CMP - LAB USE ONLY 17:44:58 CDT CPT-36878 Venipuncture Draw Fee 17:44:58 CDT CPT-03386 Cervical Min 4V - XRAY USE ONLY 09:01:40 CDT CPT-97259 Chest 2V Frontal and Lat - XRAY USE ONLY 11:06:31 CDT CPT-67398 EKG Trac and Interp - XRAY USE ONLY 11:31:43 CDT 08/26 CPT-J3420 Vitamin B12 1000mcg (Cyanocobalamin) 08:10:26 [employer] 04/12 CPT-59658 Abx/Therapy Injection 08:10:26 [employer] CPT-G0438 Initial Annual Wellness Exam 19:01:01 [employer] CPT-J3420 Vitamin B12 1000mcg (Cyanocobalamin) 16:57:46 CDT 08/14 CPT-81477 Recombivax HB Injection Suspension 5 MCG/0.5ML 08:37:50 [employer] CPT-35594 Immunization Single Admin 08:37:50 [employer] CPT-J3420 Vitamin B12 1000mcg (Cyanocobalamin) 08:32:16 [employer] 03/11 CPT-48817 Abx/Therapy Injection 08:32:16 [employer] CPT-46741 Chest 2V Frontal and Lat 11:46:38 [employer] CPT-24857 Venipuncture Draw Fee 09:12:45 [employer] CPT-J3420 Vitamin B12 1000mcg (Cyanocobalamin) 08:50:15 [employer] 02/08 CPT-47368 Abx/Therapy Injection 08:50:15 [employer] CPT-Cryo Cryotherapy 10:19:35 [employer] CPT-000 Give Appropriate Flu Vaccine 09:22:16 CDT CPT-J3420 Vitamin B12 1000mcg (Cyanocobalamin) 19:08:57 CDT 01/11 CPT-54534 Abx/Therapy Injection 19:08:57 CDT CPT-J3420 Vitamin B12 1000mcg (Cyanocobalamin) 08:19:08 CDT 12/11 CPT-97101 Abx/Therapy Injection 08:19:08 CDT CPT-J3420 Vitamin B12 1000mcg (Cyanocobalamin) 14:48:00 CDT 11/09 CPT-49142 Abx/Therapy Injection 14:47:59 CDT CPT-J3420 Vitamin B12 1000mcg (Cyanocobalamin) 08:34:04 CDT 10/09 CPT-30087 Abx/Therapy Injection 08:34:04 CDT CPT-J3420 Vitamin B12 1000mcg (Cyanocobalamin) 09:18:52 CDT 09/11 CPT-36830 Abx/Therapy Injection 09:18:52 CDT CPT-J3420 Vitamin B12 1000mcg (Cyanocobalamin) 08:35:44 CDT 09/04 CPT-93043 Abx/Therapy Injection 08:35:44 CDT CPT-77339 Immunization Single Admin 11:07:16 CDT CPT-15694 Hepatitis B adult IM 11:07:16 CDT CPT-J3420 Vitamin B12 1000mcg (Cyanocobalamin) 11:00:49 CDT 08/28 CPT-J1040 Depo Medrol 80 mg (Methyl Prednisolone Acetate) 11:00: 49 CDT CPT-38475 Abx/Therapy Injection 11:00:49 CDT CPT-J1040 Depo Medrol 80 mg (Methyl Prednisolone Acetate) 09:16: 23 CDT CPT-J3420 Vitamin B12 1000mcg (Cyanocobalamin) 08:27:05 CDT 08/20 CPT-76032 Abx/Therapy Injection 08:27:05 CDT CPT-29490 Recombivax HB Injection Suspension 5 MCG/0.5ML 10:00:41 CDT CPT-38746 Administration single or combination vaccine inc oral 10 :00:41 CDT CPT-44802 Sono transvag pelvis non OB uterus ovaries cervix 16:36: 57 CDT CPT-53115 LS spine comp w obliq 09:50:55 [employer] CPT-47256 Abd compl w upright 09:50:55 [employer] CPT-J1100 Decadron 4mg (Dexamethasone) 15:51:24 [employer] CPT-J1030 Depo Medrol 40 mg (Methyl Prednisolone Acetate) 15:51: 24 [employer] CPT-78892 Abx/Therapy Injection 15:51:24 [employer] CPT-J1100 Decadron 4mg (Dexamethasone) 15:26:33 [employer] CPT-J1030 Depo Medrol 40 mg (Methyl Prednisolone Acetate) 15:26: 33 [employer] CPT-52190 Sono retroperitoneal complete kidneys and bladder 17:15: 30 CDT CPT-84995 Abd compl w upright 16:09:25 CDT CPT-J1100 Decadron 8mg (Dexamethasone) 17:07:57 CDT CPT-69180 Abx/Therapy Injection 17:07:57 CDT CPT-J1100 Decadron 8mg (Dexamethasone) 16:55:24 CDT CPT-31080 Chest 2V Frontal and Lat 16:32:44 CDT
--- OUTSIDE RECORDS SUMMARY | 2016-11-04 13:44 | XMS REPORT | Clinical Summary ---
Author Author Admin, E Organization [facility] Address Unknown Phone Unavailable Allergies, Adverse Reactions, [...] Neeraj Collins MD Other malaise and fatigue Pneumonia, organism unspecified ICD-486 Inactive Vishal Hui MD Flank pain, right ICD-789.09 Inactive Vishal Hui MD Abdominal pain ICD-789.00 Inactive Vishal Hui MD Cellulitis ICD-682.9 Inactive Vishal Hui MD Pelvic pain ICD-625.9 Inactive Vishal Hui MD Abscess, skin ICD-682.9 Inactive Vishal Hui MD Medication List Medication Instructions Start Date Stop Date Generic Name [facility] Status Provider Patient Instruction CLINDAMYCIN HCL 150 MG CAPS 1 four times a day CLINDAMYCIN HCL 20274283995 No Longer Active Neeraj Collins MD Active KEFLEX 500 MG ORAL CAPS 1 cap QID by mouth CEPHALEXIN 61776692187 No Longer Active Neeraj Collins MD Active DIFLUCAN 150 MG TABS 1 pill every other day x 2 doses FLUCONAZOLE 42155936055 No Longer Active Sahara Rodriguez MD PhD Active MELATONIN 3 MG CAPS 2 po q hs MELATONIN 24571431371 No Longer Active Sahara Rodriguez MD PhD Active MULTIVITAMINS CAPS Take one by mouth daily MULTIPLE VITAMIN 75839192337 No Longer Active Sahara Rodriguez MD PhD Active BACTRIM DS 800-160 MG TAB 1 tab by mouth twice daily TRIMETHOPRIM-SULFAMETHOXAZOLE 82128291931 No Longer Active Sahara Rodriguez MD PhD Active [facility] PROBIOTIC ORAL CHEW 2 daily po PROBIOTIC PRODUCT 56552879734 No Longer Active Sahara Rodriguez MD PhD Active IBUPROFEN 600 MG TAB 1 po TID PRN IBUPROFEN 32980074071 Active Luigi Martínez TECHNOLOGY TRAINING ASSOCIATE Active BACTRIM DS 800-160 MG TABS 1 po BID x 7 days SULFAMETHOXAZOLE-TRIMETHOPRIM 72239628349 No Longer Active Vishal Hui MD Active CHANTIX STARTING MONTH EARNEST 0.5 MG X 11 & 1 MG X 42 TABS 0.5mg daily for 3 days , then 0.5mg BID for 4 days, then 1mg BID VARENICLINE TARTRATE 59264947418 No Longer Active TAMARA Gray Active METOPROLOL TARTRATE 50 MG TAB 1 po bid METOPROLOL TARTRATE 23473730636 Active Vishal Hui MD Active TRAZODONE HCL 100 MG TAB take 1 at bedtime TRAZODONE HCL 75192045034 Active Vishal Hui MD Active AMLODIPINE BESYLATE 5 MG TABS 1 tablet by mouth daily AMLODIPINE BESYLATE 74713309149 Active Vishal Hui MD Active VERAPAMIL HCL CR 120 MG TAB CR 1 po bid VERAPAMIL HCL 76142266762 No Longer Active Vishal Hui MD Active METOPROLOL SUCCINATE 50 MG TB24 1 tablet by mouth daily METOPROLOL SUCCINATE 93207922791 No Longer Active Vishal Hui MD Active TRAMADOL HCL 50 MG TABS 1-2 po TID PRN Pain TRAMADOL HCL 52891681548 Active Vishal Hui MD Active SAPHRIS 5 MG SUBL 1 po bid ASENAPINE MALEATE 50396783537 Active Vishal Hui MD Active SAPHRIS 10 MG SUBL 1 tab po bid ASENAPINE MALEATE 87644881516 No Longer Active Vishal Hui MD Active LISINOPRIL 20 MG TABS 1 tab po qd LISINOPRIL 68102030236 No Longer Active Vishal Hui MD Active BENADRYL 25 MG CAP 2 po tid prn anxiety DIPHENHYDRAMINE HCL 12894725666 Active Vishal Hui MD Active LATUDA 80 MG TABS Take one by mouth daily LURASIDONE HCL 77557967518 Active Vishal Hui MD Active LATUDA 20 MG TABS Take one by mouth daily LURASIDONE HCL 45281951061 No Longer Active Vishal Hui MD Active TRAZODONE HCL 50 MG TABS 1/2 tab po qd prn for anxiety TRAZODONE HCL 94939669588 No Longer Active Vishal Hui MD Active PIROXICAM 20 MG CAPS 1 cap po qd PRN Pain PIROXICAM 57194380256 Active Vishal Hui MD Active OMEPRAZOLE 20 MG TBEC 1 po q a.m. 30min prior to first food intake OMEPRAZOLE 14375212632 Active Vishal Hui MD Active RANITIDINE HCL 150 MG CAPS 1 twice a day RANITIDINE HCL 22375291490 Active Vishal Hui MD Active PROZAC 20 MG CAP Take one by mouth daily FLUOXETINE HCL 13369178054 Active Vishal Hui MD Active LINZESS 290 MCG CAPS Take one by mouth daily LINACLOTIDE 87695070436 Active Vishal Hui MD Active SAPHRIS 5 MG SUBL 1 tab po qd ASENAPINE MALEATE 92470590649 No Longer Active Vishal Hui MD Active ZALEPLON 10 MG CAPS 1 cap po every other night ZALEPLON 76448881210 No Longer Active Vishal Hui MD Active LYRICA 50 MG CAPS 1 tab po TID PREGABALIN 42521062368 No Longer Active Vishal Hui MD Active LORATADINE 10 MG TABS 1 tab po qd LORATADINE 27967170896 No Longer Active Vishal Hui MD Active VERAPAMIL HCL ER 180 MG CR-TABS 1 tab po bid VERAPAMIL HCL 27647649155 No Longer Active Vishal Hui MD Active MIRALAX POWD 1 capfull once daily POLYETHYLENE GLYCOL 3350 49315620070 No Longer Active Vishal Hui MD Active PREDNISONE 20 MG TABS 1 tab po qd PREDNISONE 60706794703 No Longer Active Renzo Thornton DO Active LEVOFLOXACIN 500 MG TABS 1 tab po qd LEVOFLOXACIN 94194627492 No Longer Active Renzo Thornton DO Active BUSPIRONE HCL 15 MG TABS 1 tab po TID BUSPIRONE HCL 51377413692 No Longer Active Renzo Thornton DO Active BENZTROPINE MESYLATE 1 MG TABS 1 tab po qd BENZTROPINE MESYLATE 17507713916 No Longer Active Renzo Thornton DO Active ATENOLOL 25 MG TABS 1 tab po qd ATENOLOL 94596997528 No Longer Active Renzo Thornton DO Active ESCITALOPRAM OXALATE 20 MG TABS 1 tab po qd ESCITALOPRAM OXALATE 50730440398 No Longer Active Renzo Thornton DO Active ADVAIR DISKUS 250-50 MCG/DOSE AEPB 1 puff BID FLUTICASONE-SALMETEROL 86573180855 No Longer Active Renzo Thornton DO Active PREDNISONE 20 MG TAB 2 tabs daily for 3 days, 1 tab daily for 3 days, 1/2 tab daily for 2 days PREDNISONE 11215125995 No Longer Active Vishal Hui MD Active CEFDINIR 300 MG CAPS by mouth twice a day CEFDINIR 02498595383 No Longer Active Vishal Hui MD Active LANSOPRAZOLE 30 MG CPDR 1 cap po qd LANSOPRAZOLE 39572092545 No Longer Active Vishal Hui MD Active TOPAMAX 25 MG TABS 1 tab po bid TOPIRAMATE 78216219775 Active Vishal Hui MD Active MINIPRESS 2 MG CAPS 1 cap po at night PRAZOSIN HCL 20253576245 Active Vishal Hui MD Active BACLOFEN 20 MG TABS 1 tab po tid BACLOFEN 41380882125 Active Vishal Hui MD Active ADVAIR DISKUS 250-50 MCG/DOSE AEPB 1 puff BID ADVAIR DISKUS 250-50 MCG/DOSE AEPB FLUTICASONE-SALMETEROL Inactive ESCITALOPRAM OXALATE 20 MG TABS 1 tab po qd ESCITALOPRAM OXALATE 20 MG TABS 315425 ESCITALOPRAM OXALATE Inactive ATENOLOL 25 MG TABS 1 tab po qd ATENOLOL 25 MG TABS 249945 ATENOLOL Inactive BENZTROPINE MESYLATE 1 MG TABS 1 tab po qd BENZTROPINE MESYLATE 1 MG TABS 078044 BENZTROPINE MESYLATE Inactive BUSPIRONE HCL 15 MG TABS 1 tab po TID BUSPIRONE HCL 15 MG TABS 072378 BUSPIRONE HCL Inactive LEVOFLOXACIN 500 MG TABS 1 tab po qd LEVOFLOXACIN 500 MG TABS 026375 LEVOFLOXACIN Inactive PREDNISONE 20 MG TABS 1 tab po qd PREDNISONE 20 MG TABS 737279 PREDNISONE Inactive MIRALAX POWD 1 capfull once daily MIRALAX POWD 704562 POLYETHYLENE GLYCOL 3350 Inactive VERAPAMIL HCL ER 180 MG CR-TABS 1 tab po bid VERAPAMIL HCL ER 180 MG CR-TABS VERAPAMIL HCL Inactive LORATADINE 10 MG TABS 1 tab po qd LORATADINE 10 MG TABS 951335 LORATADINE Inactive LYRICA 50 MG CAPS 1 tab po TID LYRICA 50 MG CAPS PREGABALIN Inactive ZALEPLON 10 MG CAPS 1 cap po every other night ZALEPLON 10 MG CAPS 928077 ZALEPLON Inactive SAPHRIS 5 MG SUBL 1 tab po qd SAPHRIS 5 MG SUBL ASENAPINE MALEATE Inactive TRAZODONE HCL 50 MG TABS 1/2 tab po qd prn for anxiety TRAZODONE HCL 50 MG TABS 200265 TRAZODONE HCL Inactive LATUDA 20 MG TABS Take one by mouth daily LATUDA 20 MG TABS LURASIDONE HCL Inactive LISINOPRIL 20 MG TABS 1 tab po qd LISINOPRIL 20 MG TABS 698616 LISINOPRIL Inactive SAPHRIS 10 MG SUBL 1 [...] po q hs MELATONIN 3 MG CAPS 244667 MELATONIN Inactive KEFLEX 500 MG ORAL CAPS 1 cap QID by mouth KEFLEX 500 MG ORAL CAPS 890488 CEPHALEXIN Inactive CLINDAMYCIN HCL 150 MG CAPS 1 four times a day CLINDAMYCIN HCL 150 MG CAPS 928948 CLINDAMYCIN HCL Inactive CEFDINIR 300 MG CAPS by mouth twice a day CEFDINIR 300 MG CAPS 760489 CEFDINIR Inactive PREDNISONE 20 MG TAB 2 tabs daily for 3 days, 1 tab daily for 3 days, 1/2 tab daily for 2 days PREDNISONE 20 MG TAB 960914 PREDNISONE Inactive BACTRIM DS 800-160 MG TABS 1 po BID x 7 days BACTRIM DS 800-160 MG TABS SULFAMETHOXAZOLE-TRIMETHOPRIM Inactive DIFLUCAN 150 MG TABS 1 pill every other day x 2 doses DIFLUCAN 150 MG TABS 973000 FLUCONAZOLE Inactive Vital Signs Date Name Value [...] U/L Chart Maintenance: outside labs entered on [facility] - Hematology leukocyte count, blood 8.9 10*3/mm3 hemoglobin, blood 13.2 g/dL platelet count 364 10*3/mm3 Lab Report: CBC, Comp. Metabolic Panel, Free Thyroxine (L), Thyroid Stim ... - Chemistry sodium, serum 140 mmol/L 978-824 2821/05/28 potassium, serum 4.2 mmol/L 3.5-5.2 chloride, serum [...] Panel - Chemistry sodium, serum 141 mmol/L 381-140 8937 potassium, serum 4.3 mmol/L 3.5-5.2 chloride, serum [...] Panel - Chemistry sodium, serum 139 mmol/L 478-987 3142/12/31 potassium, serum 4.8 mmol/L 3.5-5.2 chloride, serum 106 mmol/L 98-107 carbon dioxide, venous blood 24.3 mmol/L 21.0-32.0 blood glucose 90 mg/dL 65-110 urea nitrogen, blood 16 mg/dL 7-18 creatinine, serum 1.00 mg/dL 0.60-1.30 alanine aminotransferase (SGPT), serum 41 U/L aspartate aminotransferase (SGOT), serum 17 U/L 15-37 calcium, serum 8.6 mg/dL 8.5-10.1 bilirubin, serum, total 0.30 mg/dL 0.00-1.00 cholesterol, serum 108 mg/dL 580-543 3562/12/31 triglyceride, serum, fasting 120 mg/dL 30-200 HDL cholesterol, serum 28 mg/dL 32-96 LDL cholesterol, serum 56 mg/dL 0-130 Lab Report: MICROALBUMIN - Chemistry albumin/creatinine ratio, urine < 30 mg/g mg/g{creat} 0-29 Lab Report: MICROALBUMIN - Lab microalbumin, urine 10 0-19 Lab Report: UADIP W/MICRO, AUTO, [facility] - Chemistry protein, total urine random Negative [...] semiquantitative 7.0 5.0-8.5 Lab Report: Varicella-Zoater Inga IgG,IgM/46610, HEP Be Antibody/556, RUB ... - Serology rubella antibody, serum, IgG 2.88 Encounters Code Encounter Date Provider Facility [id number] Level 4 Est. Patient 13:59:09 CDT Neeraj Collins MD [facility]-36619 Level 3 Est. Patient 15:19:43 CDT Renzo Thornton DO [facility]-82493 Level 3 Est. Patient 18:10:26 CDT Sahara Rodriguez MD PhD [facility]-21213 Level 3 Est. Patient 14:49:50 CDT Vishal Hui MD [facility]-50912 Level 4 Est. Patient 18:41:46 CDT Neeraj Collins MD [facility]-69787 Level 4 Est. Patient 09:18:38 MANAGER FUNCTIONAL Vishal uHi MD [facility]-53781 Level 3 Est. Patient 14:43:55 MANAGER FUNCTIONAL Vishal Hui MD [facility]-74348 Level 3 Est. Patient 15:26:33 MANAGER FUNCTIONAL Sahara Rodriguez MD PhD [facility]39087 Level 3 Est. Patient 10:32:14 MANAGER FUNCTIONAL Vishal Hui MD [facility] CPT-51807 Level 3 Est. Patient 15:12:52 MANAGER FUNCTIONAL Vishal Hui MD [facility] CPT-80565 Level 4 Est. Patient 09:19:27 CDT Vishal Hui MD [facility] CPT-09490 Level 3 Est. Patient 15:53:[address] [facility] CPT-39847 Level 3 Est. Patient 15:50:[address] [facility] CPT-35041 Level 3 Est. Patient 16:55:24 CDT Vishal Hui MD [facility] Procedures Code Procedure Name Date Entry Date Standard Description CPT-48714 Recombivax HB Injection Suspension 5 MCG/0.5ML 10:00:41 CDT CPT-06061 Administration single or combination vaccine inc oral 10 :00:41 CDT CPT-69892 Sono transvag pelvis non OB uterus ovaries cervix 16:36: 57 CDT CPT-98492 LS spine comp w obliq 09:50:55 MANAGER FUNCTIONAL CPT-30769 Abd compl w upright 09:50:55 MANAGER FUNCTIONAL CPT-J1100 Decadron 4mg (Dexamethasone) 15:51:24 MANAGER FUNCTIONAL CPT-J1030 Depo Medrol 40 mg (Methyl Prednisolone Acetate) 15:51: 24 MANAGER FUNCTIONAL CPT-67728 Abx/Therapy Injection 15:51:24 MANAGER FUNCTIONAL CPT-J1100 Decadron 4mg (Dexamethasone) 15:26:33 MANAGER FUNCTIONAL CPT-J1030 Depo Medrol 40 mg (Methyl Prednisolone Acetate) 15:26: 33 MANAGER FUNCTIONAL CPT-16368 Sono retroperitoneal complete kidneys and bladder 17:15: 30 CDT CPT-16242 Abd compl w upright 16:09:25 CDT CPT-J1100 Decadron 8mg (Dexamethasone) 17:07:57 CDT CPT-46341 Abx/Therapy Injection 17:07:57 CDT CPT-J1100 Decadron 8mg (Dexamethasone) 16:55:24 CDT CPT-15871 Chest 2V Frontal and Lat 16:32:44 CDT
--- OUTSIDE RECORDS SUMMARY | 2016-11-04 13:44 | XMS REPORT | Clinical Summary ---
Author Author Admin, E Organization [facility] [employer] Address Unknown Phone Unavailable Allergies, Adverse Reactions, [...] malaise and fatigue Fatigue 780.79 Resolved Vishal uHi MD Other malaise and fatigue Vitamin B12 [...] Unspecified personality disorder Leukocytosis 288.60 Resolved Vishal uHi MD Leukocytosis, unspecified UTI 599.0 Resolved Vishal Hui MD Urinary tract infection, site not specified Headache, atypical 784.0 Active Luigi Martínez APRN Headache Elevated blood glucose 790.29 Resolved Vishal Hui MD Other abnormal glucose Polyarthralgia 719.49 Active Vishal Hui MD Pain in joint involving multiple sites Morbid obesity 278.01 Active Juliet Kimbrough RN NEW GRAD Morbid obesity 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 Active Juliet Kimbrough RN NEW GRAD Dependence on other enabling machines and devices [...] heart rate and blood pressure METOPROLOL TARTRATE 85341970185 Active Renzo Thornton DO Active VALIUM 5 MG TAB Take 1-2 tablets daily DIAZEPAM 75845198538 Active Ahmet Carbajal MD Active VIIBRYD 10 MG ORAL TABS Take 1 tablet once a day VILAZODONE HCL 14219588206 Active Ahmet Carbajal MD Active DICLOFENAC POTASSIUM TABS Take 1 tablet twice a day (pt. is not sure of the dose.) DICLOFENAC POTASSIUM TABS 99937350970 Active Ahmet Carbajal MD Active MIRALAX PACK 1 po qd PRN Constipation POLYETHYLENE GLYCOL 3350 98433041546 No Longer Active Ahmet Carbajal MD Active MINIPRESS 2 MG CAPS 4 cap po at night PRAZOSIN HCL 10843483421 No Longer Active Ahmet Carbajal MD Active PIROXICAM 20 MG CAPS 1 cap po qd PRN Pain PIROXICAM 41115988949 No Longer Active Ahmet Carbajal MD Active TRAMADOL HCL 50 MG TABS 1-2 po TID PRN Pain TRAMADOL HCL 66800852292 No Longer Active Ahmet Carbajal MD Active METOPROLOL TARTRATE 50 MG TAB 1 po bid METOPROLOL TARTRATE 00906270124 No Longer Active Ahmet Carbajal MD Active ABILIFY 15 MG ORAL TABS 1 tab daily ARIPIPRAZOLE 87750512285 No Longer Active Ahmet Carbajal MD Active PROZAC 20 MG ORAL CAPS 1 tab daily FLUOXETINE HCL 58842908610 No Longer Active Ahmet Carbajal MD Active AMBIEN 5 MG ORAL TABS 1 tab at bedtime ZOLPIDEM TARTRATE 14548742357 No Longer Active Ahmet Carbajal MD Active PREDNISONE 20 MG TAB 2 tabs daily for 4 days, 1 tab daily for 4 days, 1/2 tab daily for 4 days PREDNISONE 03311376861 No Longer Active Ahmet Carbajal MD Active KEFLEX 500 MG CAP 1 po TID x 10 days CEPHALEXIN 48285896632 No Longer Active Vishal Hui MD Active ABILIFY MAINTENA 400 MG IM SUSR Injection once per month ARIPIPRAZOLE 68200113892 Active Juliet Kimbrough APRN Active IMITREX 50 MG ORAL TABS 1/2 tab every 6 hours prn SUMATRIPTAN SUCCINATE 86143727670 Active Jioral Martínez APRN Active TOPAMAX 50 MG ORAL TABS 1 tab twice daily TOPIRAMATE 75706858369 Active Vishal Hui MD Active SAPHRIS 5 MG SUBL 1 po bid ASENAPINE MALEATE 86848325286 No Longer Active Luigi Martínez APRN Active LATUDA 80 MG TABS Take one by mouth daily LURASIDONE HCL 60574280399 No Longer Active Luigi Martínez APRN Active AMLODIPINE BESYLATE 5 MG TABS 1 tablet by mouth daily AMLODIPINE BESYLATE 21394755369 No Longer Active Luigi Martínez APRN Active AMITRIPTYLINE HCL 100 MG TAB one at hs AMITRIPTYLINE HCL 37436832561 No Longer Active Vishal Hui MD Active TRAZODONE HCL 100 MG TAB take 1 at bedtime TRAZODONE HCL 59753811156 No Longer Active Vishal Hui MD Active VYVANSE 40 MG CAPS 1 daily, LISDEXAMFETAMINE DIMESYLATE 24514295216 No Longer Active Vishal Hui MD Active IBUPROFEN 600 MG TAB 1 po TID PRN IBUPROFEN 50401487888 No Longer Active Vishal Hui MD Active PROZAC 20 MG CAP Take one by mouth daily FLUOXETINE HCL 31152451095 No Longer Active Vishal Hui MD Active ZOFRAN 4 MG TABS 1 po q6hr PRN Nausea ONDANSETRON HCL Active Vishal Hui MD Active BACTRIM DS 800-160 MG TABS 1 pill by mouth twice daily SULFAMETHOXAZOLE-TRIMETHOPRIM 99155830865 No Longer Active Sahara Rodriguez MD PhD Active DIFLUCAN 150 MG TAB 1 tablet by mouth daily FLUCONAZOLE 96593774755 No Longer Active Vishal Hui MD Active TIZANIDINE HCL 4 MG TABS 1 po q6hr PRN Muscle Spasm/Back Pain TIZANIDINE HCL 27040517602 Active Vishal Hui MD Active CLINDAMYCIN HCL 150 MG CAPS 1 four times a day CLINDAMYCIN HCL 08479671293 No Longer Active Neeraj Collins MD Active KEFLEX 500 MG ORAL CAPS 1 cap QID by mouth CEPHALEXIN 23843212589 No Longer Active Neeraj Collins MD Active DIFLUCAN 150 MG TABS 1 pill every other day x 2 doses FLUCONAZOLE 40420002702 No Longer Active Sahara Rodriguez MD PhD Active MELATONIN 3 MG CAPS 2 po q hs MELATONIN 89032625046 No Longer Active Sahara Rodriguez MD PhD Active MULTIVITAMINS CAPS Take one by mouth daily MULTIPLE VITAMIN 63812932687 No Longer Active Sahara Rodriguez MD PhD Active BACTRIM DS 800-160 MG TAB 1 tab by mouth twice daily TRIMETHOPRIM-SULFAMETHOXAZOLE 69363258001 No Longer Active Sahara Rodriguez MD PhD Active [facility] PROBIOTIC ORAL CHEW 2 daily po PROBIOTIC PRODUCT 58604295114 No Longer Active Sahara Rodriguez MD PhD Active BACTRIM DS 800-160 MG TABS 1 po BID x 7 days SULFAMETHOXAZOLE-TRIMETHOPRIM 67112397451 No Longer Active Vishal Hui MD Active CHANTIX STARTING MONTH EARNEST 0.5 MG X 11 & 1 MG X 42 TABS 0.5mg daily for 3 days , then 0.5mg BID for 4 days, then 1mg BID VARENICLINE TARTRATE 33978334086 No Longer Active TAMARA Gray Active VERAPAMIL HCL CR 120 MG TAB CR 1 po bid VERAPAMIL HCL 98892943012 No Longer Active Vishal Hui MD Active METOPROLOL SUCCINATE 50 MG TB24 1 tablet by mouth daily METOPROLOL SUCCINATE 05444481946 No Longer Active Vishal Hui MD Active SAPHRIS 10 MG SUBL 1 tab po bid ASENAPINE MALEATE 81808318029 No Longer Active Vishal Hui MD Active LISINOPRIL 20 MG TABS 1 tab po qd LISINOPRIL 82988273051 No Longer Active Vishal Hui MD Active BENADRYL 25 MG CAP 2 po tid prn anxiety DIPHENHYDRAMINE HCL 66915575373 Active Vishal Hui MD Active LATUDA 20 MG TABS Take one by mouth daily LURASIDONE HCL 98204808659 No Longer Active Vishal Hui MD Active TRAZODONE HCL 50 MG TABS 1/2 tab po qd prn for anxiety TRAZODONE HCL 05121778142 No Longer Active Vishal Hui MD Active OMEPRAZOLE 20 MG TBEC 1 po q a.m. 30min prior to first food intake OMEPRAZOLE 42596938395 Active Vishal Hui MD Active RANITIDINE HCL 150 MG CAPS 1 twice a day RANITIDINE HCL 27309783385 Active Vishal Hui MD Active LINZESS 290 MCG CAPS Take one by mouth daily LINACLOTIDE 58215122834 No Longer Active Vishal Hui MD Active SAPHRIS 5 MG SUBL 1 tab po qd ASENAPINE MALEATE 39265604909 No Longer Active Vishal Hui MD Active ZALEPLON 10 MG CAPS 1 cap po every other night ZALEPLON 56584576806 No Longer Active Vishal Hui MD Active LYRICA 50 MG CAPS 1 tab po TID PREGABALIN 57186512955 No Longer Active Vishal Hui MD Active LORATADINE 10 MG TABS 1 tab po qd LORATADINE 71234081086 No Longer Active Vishal Hui MD Active VERAPAMIL HCL ER 180 MG CR-TABS 1 tab po bid VERAPAMIL HCL 65275625200 No Longer Active Vishal Hui MD Active MIRALAX POWD 1 capfull once daily POLYETHYLENE GLYCOL 3350 26213510084 No Longer Active Vishal Hui MD Active PREDNISONE 20 MG TABS 1 tab po qd PREDNISONE 61074873951 No Longer Active Renzo Thornton DO Active LEVOFLOXACIN 500 MG TABS 1 tab po qd LEVOFLOXACIN 30075594123 No Longer Active Renzo Thornton DO Active BUSPIRONE HCL 15 MG TABS 1 tab po TID BUSPIRONE HCL 85629887975 No Longer Active Renzo Thornton DO Active BENZTROPINE MESYLATE 1 MG TABS 1 tab po qd BENZTROPINE MESYLATE 23137092087 No Longer Active Renzo Thornton DO Active ATENOLOL 25 MG TABS 1 tab po qd ATENOLOL 55152102651 No Longer Active Renzo Thornton DO Active ESCITALOPRAM OXALATE 20 MG TABS 1 tab po qd ESCITALOPRAM OXALATE 41998722200 No Longer Active Renzo Thornton DO Active ADVAIR DISKUS 250-50 MCG/DOSE AEPB 1 puff BID FLUTICASONE-SALMETEROL 27123410929 No Longer Active Renzo Thornton DO Active PREDNISONE 20 MG TAB 2 tabs daily for 3 days, 1 tab daily for 3 days, 1/2 tab daily for 2 days PREDNISONE 64658283679 No Longer Active Vishal Hui MD Active CEFDINIR 300 MG CAPS by mouth twice a day CEFDINIR 12669034813 No Longer Active Vishal Hui MD Active LANSOPRAZOLE 30 MG CPDR 1 cap po qd LANSOPRAZOLE 25710862253 No Longer Active Vishal Hui MD Active BACLOFEN 20 MG TABS 1 tab po tid BACLOFEN 42238456593 No Longer Active Vishal Hui MD Active ADVAIR DISKUS 250-50 MCG/DOSE AEPB 1 puff BID ADVAIR DISKUS 250-50 MCG/DOSE AEPB FLUTICASONE-SALMETEROL Inactive ESCITALOPRAM OXALATE 20 MG TABS 1 tab po qd ESCITALOPRAM OXALATE 20 MG TABS 701946 ESCITALOPRAM OXALATE Inactive ATENOLOL 25 MG TABS 1 tab po qd ATENOLOL 25 MG TABS 144320 ATENOLOL Inactive BENZTROPINE MESYLATE 1 MG TABS 1 tab po qd BENZTROPINE MESYLATE 1 MG TABS 619562 BENZTROPINE MESYLATE Inactive BUSPIRONE HCL 15 MG TABS 1 tab po TID BUSPIRONE HCL 15 MG TABS 187765 BUSPIRONE HCL Inactive LEVOFLOXACIN 500 MG TABS 1 tab po qd LEVOFLOXACIN 500 MG TABS 857745 LEVOFLOXACIN Inactive PREDNISONE 20 MG TABS 1 tab po qd PREDNISONE 20 MG TABS 048879 PREDNISONE Inactive MIRALAX POWD 1 capfull once daily MIRALAX POWD 224802 POLYETHYLENE GLYCOL 3350 Inactive VERAPAMIL HCL ER 180 MG CR-TABS 1 tab po bid VERAPAMIL HCL ER 180 MG CR-TABS VERAPAMIL HCL Inactive LORATADINE 10 MG TABS 1 tab po qd LORATADINE 10 MG TABS 676209 LORATADINE Inactive LYRICA 50 MG CAPS 1 tab po TID LYRICA 50 MG CAPS PREGABALIN Inactive ZALEPLON 10 MG CAPS 1 cap po every other night ZALEPLON 10 MG CAPS 750982 ZALEPLON Inactive SAPHRIS 5 MG SUBL 1 tab po qd SAPHRIS 5 MG SUBL ASENAPINE MALEATE Inactive TRAZODONE HCL 50 MG TABS 1/2 tab po qd prn for anxiety TRAZODONE HCL 50 MG TABS 649768 TRAZODONE HCL Inactive LATUDA 20 MG TABS Take one by mouth daily LATUDA 20 MG TABS LURASIDONE HCL Inactive LISINOPRIL 20 MG TABS 1 tab po qd LISINOPRIL 20 MG TABS 825187 LISINOPRIL Inactive SAPHRIS 10 MG SUBL 1 [...] twice daily BACTRIM DS 800-160 MG TAB 482715 TRIMETHOPRIM-SULFAMETHOXAZOLE Inactive MULTIVITAMINS CAPS Take one by mouth daily MULTIVITAMINS CAPS MULTIPLE VITAMIN Inactive MELATONIN 3 MG CAPS 2 po q hs MELATONIN 3 MG CAPS 19950526 MELATONIN Inactive KEFLEX 500 MG ORAL CAPS 1 cap QID by mouth KEFLEX 500 MG ORAL CAPS 874360 CEPHALEXIN Inactive CLINDAMYCIN HCL 150 MG CAPS 1 four times a day CLINDAMYCIN HCL 150 MG CAPS 210341 CLINDAMYCIN HCL Inactive DIFLUCAN 150 MG TAB 1 tablet by mouth daily DIFLUCAN 150 MG TAB 884695 FLUCONAZOLE Inactive PROZAC 20 MG CAP Take one by mouth daily PROZAC 20 MG CAP 079976 FLUOXETINE HCL Inactive IBUPROFEN 600 MG TAB 1 po TID PRN IBUPROFEN 600 MG TAB 646679 IBUPROFEN Inactive VYVANSE 40 MG CAPS 1 daily, VYVANSE 40 MG CAPS LISDEXAMFETAMINE DIMESYLATE Inactive TRAZODONE HCL 100 MG TAB take 1 at bedtime TRAZODONE HCL 100 MG TAB 088162 TRAZODONE HCL Inactive AMITRIPTYLINE HCL 100 MG TAB one at hs AMITRIPTYLINE HCL 100 MG TAB 736956 AMITRIPTYLINE HCL Inactive AMLODIPINE BESYLATE 5 MG TABS 1 tablet by mouth daily AMLODIPINE BESYLATE 5 MG TABS 157962 AMLODIPINE BESYLATE Inactive LATUDA 80 MG TABS Take one by mouth daily LATUDA 80 MG TABS LURASIDONE HCL Inactive SAPHRIS 5 MG SUBL 1 po bid SAPHRIS 5 MG SUBL ASENAPINE MALEATE Inactive PREDNISONE 20 MG TAB 2 tabs daily for 4 days, 1 tab daily for 4 days, 1/2 tab daily for 4 days PREDNISONE 20 MG TAB 594763 PREDNISONE Inactive AMBIEN 5 MG ORAL TABS 1 tab at bedtime AMBIEN 5 MG ORAL TABS 569679 ZOLPIDEM TARTRATE Inactive PROZAC 20 MG ORAL CAPS 1 tab daily PROZAC 20 MG ORAL CAPS 337513 FLUOXETINE HCL Inactive ABILIFY 15 MG ORAL TABS 1 tab daily ABILIFY 15 MG ORAL TABS 586286 ARIPIPRAZOLE Inactive METOPROLOL TARTRATE 50 MG TAB 1 po bid METOPROLOL TARTRATE 50 MG TAB 549919 METOPROLOL TARTRATE Inactive TRAMADOL HCL 50 MG TABS 1-2 po TID PRN Pain TRAMADOL HCL 50 MG TABS 129040 TRAMADOL HCL Inactive PIROXICAM 20 MG CAPS 1 cap po qd PRN Pain PIROXICAM 20 MG CAPS 203560 PIROXICAM Inactive MINIPRESS 2 MG CAPS 4 cap po at night MINIPRESS 2 MG CAPS 972285 PRAZOSIN HCL Inactive MIRALAX PACK 1 po qd PRN Constipation MIRALAX PACK 489922 POLYETHYLENE GLYCOL 3350 Inactive CEFDINIR 300 MG CAPS by mouth twice a day CEFDINIR 300 MG CAPS 157436 CEFDINIR Inactive PREDNISONE 20 MG TAB 2 tabs daily for 3 days, 1 tab daily for 3 days, 1/2 tab daily for 2 days PREDNISONE 20 MG TAB 650502 PREDNISONE Inactive BACTRIM DS 800-160 MG TABS 1 po BID x 7 days BACTRIM DS 800-160 MG TABS 959805 SULFAMETHOXAZOLE-TRIMETHOPRIM Inactive DIFLUCAN 150 MG TABS 1 pill every other day x 2 doses DIFLUCAN 150 MG TABS 687210 FLUCONAZOLE Inactive BACTRIM DS 800-160 MG TABS 1 pill by mouth twice daily BACTRIM DS 800-160 MG TABS 251061 SULFAMETHOXAZOLE-TRIMETHOPRIM Inactive KEFLEX 500 MG CAP 1 po TID x 10 days KEFLEX 500 MG CAP 197231 CEPHALEXIN Inactive Advance Directives Directive Description Start [...] pressure, diastolic - 8462-4 77 mm[Hg] BP mncally blood pressure, systolic - 8480-6 120 mm[Hg] [...] % 11.6-14.8 platelet count 394 10^3/MM^3 10*3/mm3 537-108 0948/01/11 leukocyte count, blood 13.8 10^3/MM^3 10*3/mm3 4.6-10.2 [...] Panel - Chemistry sodium, serum 139 mmol/L 266-665 6285/12/03 carbon dioxide, venous blood 28.5 mmol/L 21.0-32.0 [...] 5.5 % 4.3-6.0 cholesterol, serum 159 mg/dL 857-839 7896/12/03 triglyceride, serum, fasting 118 mg/dL 30-200 HDL [...] Panel - Chemistry sodium, serum 139 mmol/L 281-197 1829/12/22 carbon dioxide, venous blood 26.8 mmol/L 21.0-32.0 potassium, serum 4.2 mmol/L 3.5-5.2 chloride, serum 103 mmol/L 98-107 blood glucose 115 mg/dL 65-110 urea nitrogen, blood 20 mg/dL 7-18 creatinine, serum 0.90 mg/dL 0.55-1.30 alanine aminotransferase (SGPT), serum 38 U/L 12-78 aspartate aminotransferase (SGOT), serum 19 U/L 15-37 calcium, serum 8.6 mg/dL 8.5-10.1 bilirubin, serum, total 0.30 mg/dL 0.00-1.00 sodium, serum 139 mmol/L 397-502 7539/01/11 carbon dioxide, venous blood 26.6 mmol/L 21.0-32.0 potassium, serum 4.1 mmol/L 3.5-5.2 chloride, serum 100 mmol/L 98-107 blood glucose 86 mg/dL 65-110 urea nitrogen, blood 16 mg/dL 7-18 creatinine, serum 1.00 mg/dL 0.55-1.30 alanine aminotransferase (SGPT), serum 48 U/L - aspartate aminotransferase (SGOT), serum 17 U/L 15-37 calcium, serum 9.1 mg/dL 8.5-10.1 bilirubin, serum, total 0.40 mg/dL 0.00-1.00 sodium, serum 142 mmol/L 188-503 9846/06/08 carbon dioxide, venous blood 27.6 mmol/L 21.0-32.0 [...] Rate - Chemistry sodium, serum 139 mmol/L 132-640 6915/12/11 carbon dioxide, venous blood 25.4 mmol/L [...] 5.0-8.5 Encounters Code Encounter Date Provider Facility CPT-83754 Level 3 Est. Patient 11:25:49 CDT Renzo Thornton DO [facility] CPT-16234 Level 3 Est. Patient 15:22:01 CDT Ahmet Carbajal MD [facility]-79239 Level 4 Est. Patient 09:00:51 CATERING TRUCK OPERATOR Vishal Hui MD [facility] CPT-22249 Level 3 Est. Patient 11:37:33 CATERING TRUCK OPERATOR Vishal Hui MD [facility] CPT-22229 Level 3 Est. Patient 08:41:09 CATERING TRUCK OPERATOR Vishal Hui MD [facility] CPT-38956 Level 4 Est. Patient 10:19:35 CATERING TRUCK OPERATOR Vishal Hui MD [facility] CPT-04570 Level 3 Est. Patient 13:35:45 CDT Vishal Hui MD [facility] CPT-21380 Level 4 Est. Patient 10:08:37 CDT Vishal Hui MD [facility] CPT-69419 Level 3 Est. Patient 11:22:10 CDT Vishal Hui MD [facility] CPT-32202 Level 3 Est. Patient 11:03:32 CDT Sahara Rodriguez MD [facility]-53603 Level 3 Est. Patient 09:41:35 CDT Vishal Hui MD [facility]-97916 Level 3 Est. Patient 12:00:41 CDT Neeraj Collins MD [facility]-59618 Level 3 Est. Patient 09:16:24 CDT Vishal Hui MD [facility]-34528 Level 4 Est. Patient 13:59:09 CDT Neeraj Collins MD [facility]-73263 Level 3 Est. Patient 15:19:43 CDT Renzo Thornton DO [facility] CPT-29231 Level 3 Est. Patient 18:10:26 CDT Sahara Rodriguez MD [facility]-57342 Level 3 Est. Patient 14:49:50 CDT Vishal Hui MD [facility]-49163 Level 4 Est. Patient 18:41:46 CDT Neeraj Collins MD [facility]-19376 Level 4 Est. Patient 09:18:38 CATERING TRUCK OPERATOR Vishal Hui MD [facility]-18918 Level 3 Est. Patient 14:43:55 CATERING TRUCK OPERATOR Vishal Hui MD [facility]-56912 Level 3 Est. Patient 15:26:33 CATERING TRUCK OPERATOR Sahara Rodriguez MD [facility]-63367 Level 3 Est. Patient 10:32:14 CATERING TRUCK OPERATOR Vishal Hui MD [facility]-33109 Level 3 Est. Patient 15:12:52 CATERING TRUCK OPERATOR Vishal Hui MD [facility]-41493 Level 4 Est. Patient 09:19:27 CDT Vishal Hui MD [facility]-66089 Level 3 Est. Patient 15:53:00 CDT Renzo Thornton [facility] CPT-45828 Level 3 Est. Patient 15:50:30 CDT Renzo Thornton [facility] CPT-06497 Level 3 Est. Patient 16:55:24 CDT Vishal Hui MD [facility] Procedures Code Procedure Name Date Entry Date Standard Description CPT-15708 EKG Trac and Interp - XRAY USE ONLY 11:31:43 CDT 08/26 CPT-J3420 Vitamin B12 1000mcg (Cyanocobalamin) 08:10:26 CATERING TRUCK OPERATOR 04/12 CPT-03982 Abx/Therapy Injection 08:10:26 CATERING TRUCK OPERATOR CPT-G0438 Initial Annual Wellness Exam 19:01:01 CATERING TRUCK OPERATOR CPT-J3420 Vitamin B12 1000mcg (Cyanocobalamin) 16:57:46 CDT 08/14 CPT-85596 Recombivax HB Injection Suspension 5 MCG/0.5ML 08:37:50 CATERING TRUCK OPERATOR CPT-98346 Immunization Single Admin 08:37:50 CATERING TRUCK OPERATOR CPT-J3420 Vitamin B12 1000mcg (Cyanocobalamin) 08:32:16 CATERING TRUCK OPERATOR 03/11 CPT-83504 Abx/Therapy Injection 08:32:16 CATERING TRUCK OPERATOR CPT-07778 Chest 2V Frontal and Lat 11:46:38 CATERING TRUCK OPERATOR CPT-77276 Venipuncture Draw Fee 09:12:45 CATERING TRUCK OPERATOR CPT-J3420 Vitamin B12 1000mcg (Cyanocobalamin) 08:50:15 CATERING TRUCK OPERATOR 02/08 CPT-53741 Abx/Therapy Injection 08:50:15 CATERING TRUCK OPERATOR CPT-Cryo Cryotherapy 10:19:35 CATERING TRUCK OPERATOR CPT-000 Give Appropriate Flu Vaccine 09:22:16 CDT CPT-J3420 Vitamin B12 1000mcg (Cyanocobalamin) 19:08:57 CDT 01/11 CPT-18654 Abx/Therapy Injection 19:08:57 CDT CPT-J3420 Vitamin B12 1000mcg (Cyanocobalamin) 08:19:08 CDT 12/11 CPT-83716 Abx/Therapy Injection 08:19:08 CDT CPT-J3420 Vitamin B12 1000mcg (Cyanocobalamin) 14:48:00 CDT 11/09 CPT-18856 Abx/Therapy Injection 14:47:59 CDT CPT-J3420 Vitamin B12 1000mcg (Cyanocobalamin) 08:34:04 CDT 10/09 CPT-76202 Abx/Therapy Injection 08:34:04 CDT CPT-J3420 Vitamin B12 1000mcg (Cyanocobalamin) 09:18:52 CDT 09/11 CPT-44031 Abx/Therapy Injection 09:18:52 CDT CPT-J3420 Vitamin B12 1000mcg (Cyanocobalamin) 08:35:44 CDT 09/04 CPT-18365 Abx/Therapy Injection 08:35:44 CDT CPT-13459 Immunization Single Admin 11:07:16 CDT CPT-84680 Hepatitis B adult IM 11:07:16 CDT CPT-J3420 Vitamin B12 1000mcg (Cyanocobalamin) 11:00:49 CDT 08/28 CPT-J1040 Depo Medrol 80 mg (Methyl Prednisolone Acetate) 11:00: 49 CDT CPT-27588 Abx/Therapy Injection 11:00:49 CDT CPT-J1040 Depo Medrol 80 mg (Methyl Prednisolone Acetate) 09:16: 23 CDT CPT-J3420 Vitamin B12 1000mcg (Cyanocobalamin) 08:27:05 CDT 08/20 CPT-96673 Abx/Therapy Injection 08:27:05 CDT CPT-60469 Recombivax HB Injection Suspension 5 MCG/0.5ML 10:00:41 CDT CPT-33664 Administration single or combination vaccine inc oral 10 :00:41 CDT CPT-69152 Sono transvag pelvis non OB uterus ovaries cervix 16:36: 57 CDT CPT-12630 LS spine comp w obliq 09:50:55 CATERING TRUCK OPERATOR CPT-17160 Abd compl w upright 09:50:55 CATERING TRUCK OPERATOR CPT-J1100 Decadron 4mg (Dexamethasone) 15:51:24 CATERING TRUCK OPERATOR CPT-J1030 Depo Medrol 40 mg (Methyl Prednisolone Acetate) 15:51: 24 CATERING TRUCK OPERATOR CPT-13951 Abx/Therapy Injection 15:51:24 CATERING TRUCK OPERATOR CPT-J1100 Decadron 4mg (Dexamethasone) 15:26:33 CATERING TRUCK OPERATOR CPT-J1030 Depo Medrol 40 mg (Methyl Prednisolone Acetate) 15:26: 33 CATERING TRUCK OPERATOR CPT-72510 Sono retroperitoneal complete kidneys and bladder 17:15: 30 CDT CPT-46433 Abd compl w upright 16:09:25 CDT CPT-J1100 Decadron 8mg (Dexamethasone) 17:07:57 CDT CPT-45799 Abx/Therapy Injection 17:07:57 CDT CPT-J1100 Decadron 8mg (Dexamethasone) 16:55:24 CDT CPT-27945 Chest 2V Frontal and Lat 16:32:44 CDT
--- OUTSIDE RECORDS SUMMARY | 2016-11-04 13:46 | XMS REPORT | Clinical Summary ---
Author Author Admin, Dereck Organization [facility] [employer] Address Unknown Phone Unavailable Allergies, Adverse Reactions, Alerts Allergy Name Reaction Description Start Date Severity Status Provider REQUIP Unsure of reaction, states that she was in severe pain Critical Active Ahmet Carbajal MD AMITRIPTYLINE HCL Mood changes. 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 FLUTICASONE PROPIONATE 82331919002 Active Fabiola Johnson APRN Active VERAPAMIL HCL ER 120 MG ORAL CR-TABS 1 tab po daily for blood pressure 09/27 VERAPAMIL HCL 00711737167 Active Fabiola Johnson APRN Active ADZENYS XR-ODT 6.3 MG ORAL TBED 1 tab po daily for ADHD AMPHETAMINE 95714810892 Active Fabiola Johnson APRN Active BENADRYL 25 MG CAP 4 po at bedtime for insomnia DIPHENHYDRAMINE HCL 67732870681 Active Fabiola Johnson APRN Active KLONOPIN 1 MG ORAL TABS 1 tab po TID CLONAZEPAM 55039607120 Active Fabiola Johnson APRN Active VALIUM 5 MG TAB Take 1-2 tablets daily DIAZEPAM 00063285192 No Longer Active Fabiola Johnson APRN Active METOPROLOL TARTRATE 25 MG ORAL TABS 1/2 tablet twice daily for heart rate and blood pressure METOPROLOL TARTRATE 32486708497 No Longer Active Fabiola Johnson APRN Active MIRALAX ORAL POWD 17GMS DAILY IN WATER POLYETHYLENE GLYCOL 3350 52263618493 Active Vishal Hui MD Active VIIBRYD 10 MG ORAL TABS Take 1 tablet once a day VILAZODONE HCL 06563661173 Active Ahmet Carbajal MD Active DICLOFENAC POTASSIUM TABS Take 1 tablet twice a day (pt. is not sure of the dose.) DICLOFENAC POTASSIUM TABS 99710406483 Active Ahmet Carbajal MD Active MIRALAX PACK 1 po qd PRN Constipation POLYETHYLENE GLYCOL 3350 96721827388 No Longer Active Ahmet Carbajal MD Active MINIPRESS 2 MG CAPS 4 cap po at night PRAZOSIN HCL 53062862876 No Longer Active Ahmet Carbajal MD Active PIROXICAM 20 MG CAPS 1 cap po qd PRN Pain PIROXICAM 72809297721 No Longer Active Ahmet Carbajal MD Active TRAMADOL HCL 50 MG TABS 1-2 po TID PRN Pain TRAMADOL HCL 46427532118 No Longer Active Ahmet Carbajal MD Active METOPROLOL TARTRATE 50 MG TAB 1 po bid METOPROLOL TARTRATE 43331699578 No Longer Active Ahmet Carbajal MD Active ABILIFY 15 MG ORAL TABS 1 tab daily ARIPIPRAZOLE 28355962198 No Longer Active Ahmet Carbajal MD Active PROZAC 20 MG ORAL CAPS 1 tab daily FLUOXETINE HCL 22923398188 No Longer Active Ahmet Carbajal MD Active AMBIEN 5 MG ORAL TABS 1 tab at bedtime ZOLPIDEM TARTRATE 83611480046 No Longer Active Ahmet Carbajal MD Active PREDNISONE 20 MG TAB 2 tabs daily for 4 days, 1 tab daily for 4 days, 1/2 tab daily for 4 days PREDNISONE 71737178700 No Longer Active Ahmet Carbajal MD Active KEFLEX 500 MG CAP 1 po TID x 10 days CEPHALEXIN 90670130287 No Longer Active Vishal Hui MD Active ABILIFY MAINTENA 400 MG IM SUSR Injection once per month ARIPIPRAZOLE 98628736030 Active Juliet Kimbrough APRN Active IMITREX 50 MG ORAL TABS 1/2 tab every 6 hours prn SUMATRIPTAN SUCCINATE 94192059238 Active Luigi Martínez APRN Active TOPAMAX 50 MG ORAL TABS 1 tab twice daily TOPIRAMATE 48755243627 Active Vishal Hui MD Active SAPHRIS 5 MG SUBL 1 po bid ASENAPINE MALEATE 57663164877 No Longer Active Luigi Martínez APRN Active LATUDA 80 MG TABS Take one by mouth daily LURASIDONE HCL 42577409540 No Longer Active Luigi Martínez APRN Active AMLODIPINE BESYLATE 5 MG TABS 1 tablet by mouth daily AMLODIPINE BESYLATE 97112667012 No Longer Active Luigi Martínez APRN Active AMITRIPTYLINE HCL 100 MG TAB one at hs AMITRIPTYLINE HCL 44593139621 No Longer Active Vishal Hui MD Active TRAZODONE HCL 100 MG TAB take 1 at bedtime TRAZODONE HCL 71726464504 No Longer Active Vishal Hui MD Active VYVANSE 40 MG CAPS 1 daily, LISDEXAMFETAMINE DIMESYLATE 56363968447 No Longer Active Vishal Hui MD Active IBUPROFEN 600 MG TAB 1 po TID PRN IBUPROFEN 66090822891 No Longer Active Vishal Hui MD Active PROZAC 20 MG CAP Take one by mouth daily FLUOXETINE HCL 32579740295 No Longer Active Vishal Hui MD Active ZOFRAN 4 MG TABS 1 po q6hr PRN Nausea ONDANSETRON HCL Active Vishal Hui MD Active BACTRIM DS 800-160 MG TABS 1 pill by mouth twice daily SULFAMETHOXAZOLE-TRIMETHOPRIM 34644750663 No Longer Active Sahara Rodriguez MD PhD Active DIFLUCAN 150 MG TAB 1 tablet by mouth daily FLUCONAZOLE 78973549725 No Longer Active Vishal Hui MD Active TIZANIDINE HCL 4 MG TABS 1 po q6hr PRN Muscle Spasm/Back Pain TIZANIDINE HCL 40765817662 Active Vishal Hui MD Active CLINDAMYCIN HCL 150 MG CAPS 1 four times a day CLINDAMYCIN HCL 90894324508 No Longer Active Neeraj Collins MD Active KEFLEX 500 MG ORAL CAPS 1 cap QID by mouth CEPHALEXIN 45689021521 No Longer Active Neeraj Collins MD Active DIFLUCAN 150 MG TABS 1 pill every other day x 2 doses FLUCONAZOLE 17781830782 No Longer Active Sahara Rodriguez MD PhD Active MELATONIN 3 MG CAPS 2 po q hs MELATONIN 55507184678 No Longer Active Sahara Rodriguez MD PhD Active MULTIVITAMINS CAPS Take one by mouth daily MULTIPLE VITAMIN 43909299736 No Longer Active Sahara Rodriguez MD PhD Active BACTRIM DS 800-160 MG TAB 1 tab by mouth twice daily TRIMETHOPRIM-SULFAMETHOXAZOLE 07697098916 No Longer Active Sahara Rodriguez MD PhD Active [employer] PROBIOTIC ORAL CHEW 2 daily po PROBIOTIC PRODUCT 02445246269 No Longer Active Sahara Rodriguez MD PhD Active BACTRIM DS 800-160 MG TABS 1 po BID x 7 days SULFAMETHOXAZOLE-TRIMETHOPRIM 82180849200 No Longer Active Vishal Hui MD Active CHANTIX STARTING MONTH EARNEST 0.5 MG X 11 & 1 MG X 42 TABS 0.5mg daily for 3 days , then 0.5mg BID for 4 days, then 1mg BID VARENICLINE TARTRATE 47123269424 No Longer Active TAMARA Gray Active VERAPAMIL HCL CR 120 MG TAB CR 1 po bid VERAPAMIL HCL 66404885020 No Longer Active Vishal Hui MD Active METOPROLOL SUCCINATE 50 MG TB24 1 tablet by mouth daily METOPROLOL SUCCINATE 81240813729 No Longer Active Vishal Hui MD Active SAPHRIS 10 MG SUBL 1 tab po bid ASENAPINE MALEATE 28369889256 No Longer Active Vishal Hui MD Active LISINOPRIL 20 MG TABS 1 tab po qd LISINOPRIL 17899952954 No Longer Active Vishal Hui MD Active LATUDA 20 MG TABS Take one by mouth daily LURASIDONE HCL 09187542070 No Longer Active Vishal Hui MD Active TRAZODONE HCL 50 MG TABS 1/2 tab po qd prn for anxiety TRAZODONE HCL 73651171520 No Longer Active Vishal Hui MD Active OMEPRAZOLE 20 MG TBEC 1 po q a.m. 30min prior to first food intake OMEPRAZOLE 80114184141 Active Vishal Hui MD Active RANITIDINE HCL 150 MG CAPS 1 twice a day RANITIDINE HCL 73854454034 Active Jillina Messizelephraim WALTERSN Active LINZESS 290 MCG CAPS Take one by mouth daily LINACLOTIDE 64052958015 No Longer Active Vishal Hui MD Active SAPHRIS 5 MG SUBL 1 tab po qd ASENAPINE MALEATE 08881535545 No Longer Active Vishal Hui MD Active ZALEPLON 10 MG CAPS 1 cap po every other night ZALEPLON 12934262435 No Longer Active Vishal Hui MD Active LYRICA 50 MG CAPS 1 tab po TID PREGABALIN 80866120532 No Longer Active Vishal Hui MD Active LORATADINE 10 MG TABS 1 tab po qd LORATADINE 57214656697 No Longer Active Vishal Hui MD Active VERAPAMIL HCL ER 180 MG CR-TABS 1 tab po bid VERAPAMIL HCL 02060423142 No Longer Active Vishal Hui MD Active MIRALAX POWD 1 capfull once daily POLYETHYLENE GLYCOL 3350 99399442052 No Longer Active Vishal Hui MD Active PREDNISONE 20 MG TABS 1 tab po qd PREDNISONE 40751225059 No Longer Active Renzo Thornton DO Active LEVOFLOXACIN 500 MG TABS 1 tab po qd LEVOFLOXACIN 42214938454 No Longer Active Renzo Thornton DO Active BUSPIRONE HCL 15 MG TABS 1 tab po TID BUSPIRONE HCL 05601891774 No Longer Active Renzo Thornton DO Active BENZTROPINE MESYLATE 1 MG TABS 1 tab po qd BENZTROPINE MESYLATE 05628756204 No Longer Active Renzo Thornton DO Active ATENOLOL 25 MG TABS 1 tab po qd ATENOLOL 78455209268 No Longer Active Renzo Thornton DO Active ESCITALOPRAM OXALATE 20 MG TABS 1 tab po qd ESCITALOPRAM OXALATE 72518860956 No Longer Active Renzo Thornton DO Active ADVAIR DISKUS 250-50 MCG/DOSE AEPB 1 puff BID FLUTICASONE-SALMETEROL 90017220485 No Longer Active Renzo Thornton DO Active PREDNISONE 20 MG TAB 2 tabs daily for 3 days, 1 tab daily for 3 days, 1/2 tab daily for 2 days PREDNISONE 71580087488 No Longer Active Vishal Hui MD Active CEFDINIR 300 MG CAPS by mouth twice a day CEFDINIR 80176378834 No Longer Active Vishal Hui MD Active LANSOPRAZOLE 30 MG CPDR 1 cap po qd LANSOPRAZOLE 25732095994 No Longer Active Vishal Hui MD Active BACLOFEN 20 MG TABS 1 tab po tid BACLOFEN 23963470086 No Longer Active Vishal Hui MD Active ADVAIR DISKUS 250-50 MCG/DOSE AEPB 1 puff BID ADVAIR DISKUS 250-50 MCG/DOSE AEPB FLUTICASONE-SALMETEROL Inactive ESCITALOPRAM OXALATE 20 MG TABS 1 tab po qd ESCITALOPRAM OXALATE 20 MG TABS 858743 ESCITALOPRAM OXALATE Inactive ATENOLOL 25 MG TABS 1 tab po qd ATENOLOL 25 MG TABS 168225 ATENOLOL Inactive BENZTROPINE MESYLATE 1 MG TABS 1 tab po qd BENZTROPINE MESYLATE 1 MG TABS 525385 BENZTROPINE MESYLATE Inactive BUSPIRONE HCL 15 MG TABS 1 tab po TID BUSPIRONE HCL 15 MG TABS 887813 BUSPIRONE HCL Inactive LEVOFLOXACIN 500 MG TABS 1 tab po qd LEVOFLOXACIN 500 MG TABS 146183 LEVOFLOXACIN Inactive PREDNISONE 20 MG TABS 1 tab po qd PREDNISONE 20 MG TABS 365780 PREDNISONE Inactive MIRALAX POWD 1 capfull once daily MIRALAX POWD 839515 POLYETHYLENE GLYCOL 3350 Inactive VERAPAMIL HCL ER 180 MG CR-TABS 1 tab po bid VERAPAMIL HCL ER 180 MG CR-TABS VERAPAMIL HCL Inactive LORATADINE 10 MG TABS 1 tab po qd LORATADINE 10 MG TABS 070403 LORATADINE Inactive LYRICA 50 MG CAPS 1 tab po TID LYRICA 50 MG CAPS PREGABALIN Inactive ZALEPLON 10 MG CAPS 1 cap po every other night ZALEPLON 10 MG CAPS 540467 ZALEPLON Inactive SAPHRIS 5 MG SUBL 1 tab po qd SAPHRIS 5 MG SUBL ASENAPINE MALEATE Inactive TRAZODONE HCL 50 MG TABS 1/2 tab po qd prn for anxiety TRAZODONE HCL 50 MG TABS 738629 TRAZODONE HCL Inactive LATUDA 20 MG TABS Take one by mouth daily LATUDA 20 MG TABS LURASIDONE HCL Inactive LISINOPRIL 20 MG TABS 1 tab po qd LISINOPRIL 20 MG TABS 409756 LISINOPRIL Inactive SAPHRIS 10 MG SUBL 1 [...] twice daily BACTRIM DS 800-160 MG TAB 735438 TRIMETHOPRIM-SULFAMETHOXAZOLE Inactive MULTIVITAMINS CAPS Take one by mouth daily MULTIVITAMINS CAPS MULTIPLE VITAMIN Inactive MELATONIN 3 MG CAPS 2 po q hs MELATONIN 3 MG CAPS 915123 MELATONIN Inactive KEFLEX 500 MG ORAL CAPS 1 cap QID by mouth KEFLEX 500 MG ORAL CAPS 219024 CEPHALEXIN Inactive CLINDAMYCIN HCL 150 MG CAPS 1 four times a day CLINDAMYCIN HCL 150 MG CAPS 154186 CLINDAMYCIN HCL Inactive DIFLUCAN 150 MG TAB 1 tablet by mouth daily DIFLUCAN 150 MG TAB 768089 FLUCONAZOLE Inactive PROZAC 20 MG CAP Take one by mouth daily PROZAC 20 MG CAP 029462 FLUOXETINE HCL Inactive IBUPROFEN 600 MG TAB 1 po TID PRN IBUPROFEN 600 MG TAB 653951 IBUPROFEN Inactive VYVANSE 40 MG CAPS 1 daily, VYVANSE 40 MG CAPS LISDEXAMFETAMINE DIMESYLATE Inactive TRAZODONE HCL 100 MG TAB take 1 at bedtime TRAZODONE HCL 100 MG TAB 813895 TRAZODONE HCL Inactive AMITRIPTYLINE HCL 100 MG TAB one at hs AMITRIPTYLINE HCL 100 MG TAB 037415 AMITRIPTYLINE HCL Inactive AMLODIPINE BESYLATE 5 MG TABS 1 tablet by mouth daily AMLODIPINE BESYLATE 5 MG TABS 343921 AMLODIPINE BESYLATE Inactive LATUDA 80 MG TABS Take one by mouth daily LATUDA 80 MG TABS LURASIDONE HCL Inactive SAPHRIS 5 MG SUBL 1 po bid SAPHRIS 5 MG SUBL ASENAPINE MALEATE Inactive PREDNISONE 20 MG TAB 2 tabs daily for 4 days, 1 tab daily for 4 days, 1/2 tab daily for 4 days PREDNISONE 20 MG TAB 636053 PREDNISONE Inactive AMBIEN 5 MG ORAL TABS 1 tab at bedtime AMBIEN 5 MG ORAL TABS 709642 ZOLPIDEM TARTRATE Inactive PROZAC 20 MG ORAL CAPS 1 tab daily PROZAC 20 MG ORAL CAPS 527282 FLUOXETINE HCL Inactive ABILIFY 15 MG ORAL TABS 1 tab daily ABILIFY 15 MG ORAL TABS 966851 ARIPIPRAZOLE Inactive METOPROLOL TARTRATE 50 MG TAB 1 po bid METOPROLOL TARTRATE 50 MG TAB 063616 METOPROLOL TARTRATE Inactive TRAMADOL HCL 50 MG TABS 1-2 po TID PRN Pain TRAMADOL HCL 50 MG TABS 144550 TRAMADOL HCL Inactive PIROXICAM 20 MG CAPS 1 cap po qd PRN Pain PIROXICAM 20 MG CAPS 032840 PIROXICAM Inactive MINIPRESS 2 MG CAPS 4 cap po at night MINIPRESS 2 MG CAPS 683782 PRAZOSIN HCL Inactive MIRALAX PACK 1 po qd PRN Constipation MIRALAX PACK 700784 POLYETHYLENE GLYCOL 3350 Inactive METOPROLOL TARTRATE 25 MG ORAL TABS 1/2 tablet twice daily for heart rate and blood pressure METOPROLOL TARTRATE 25 MG ORAL TABS 068584 METOPROLOL TARTRATE Inactive VALIUM 5 MG TAB Take 1-2 tablets daily VALIUM 5 MG TAB 465394 DIAZEPAM Inactive CEFDINIR 300 MG CAPS by mouth twice a day CEFDINIR 300 MG CAPS 20020622 CEFDINIR Inactive PREDNISONE 20 MG TAB 2 tabs daily for 3 days, 1 tab daily for 3 days, 1/2 tab daily for 2 days PREDNISONE 20 MG TAB 063609 PREDNISONE Inactive BACTRIM DS 800-160 MG TABS 1 po BID x 7 days BACTRIM DS 800-160 MG TABS 19820521 SULFAMETHOXAZOLE-TRIMETHOPRIM Inactive DIFLUCAN 150 MG TABS 1 pill every other day x 2 doses DIFLUCAN 150 MG TABS 588409 FLUCONAZOLE Inactive BACTRIM DS 800-160 MG TABS 1 pill by mouth twice daily BACTRIM DS 800-160 MG TABS 19820521 SULFAMETHOXAZOLE-TRIMETHOPRIM Inactive KEFLEX 500 MG CAP 1 po TID x 10 days KEFLEX 500 MG CAP 567629 CEPHALEXIN Inactive Advance Directives Directive Description Start [...] pressure, diastolic - 8462-4 79 mm[Hg] BP cmnally blood pressure, systolic - 8480-6 114 mm[Hg] [...] % 11.6-14.8 platelet count 394 10^3/MM^3 10*3/mm3 252-039 9812/12/22 erythrocyte (RBC) count 4.19 10^6/MM^3 10*6/mm3 4.04-5.48 hemoglobin, blood 13.1 g/dL 12.0-16.0 hematocrit, blood 39.0 % 36.0-46.0 mean corpuscular volume, RBC 93 fL 80-97 mean corpuscular hemoglobin, RBC 31.4 pg 27.0-31.2 mean corpuscular hemoglobin concentration, RBC 33.6 G/DL % 31.8- 35.4 red blood cell distribution width 14.4 % 11.6-14.8 platelet count 390 10^3/MM^3 10*3/mm3 353-017 8817/01/11 mean corpuscular volume, RBC 94 fL 80-97 mean corpuscular hemoglobin, RBC 31.5 pg 27.0-31.2 erythrocyte (RBC) count 4.46 10^6/MM^3 10*6/mm3 4.04-5.48 hemoglobin, blood 14.0 g/dL 12.0-16.0 hematocrit, blood 41.8 % 36.0-46.0 leukocyte count, blood 13.8 10^3/MM^3 10*3/mm3 4.6-10.2 Lab Report: CBC W/DIFF - Hematology neutrophils [...] Panel - Chemistry sodium, serum 139 mmol/L 508-207 2496/12/03 carbon dioxide, venous blood 28.5 mmol/L 21.0-32.0 [...] 5.5 % 4.3-6.0 cholesterol, serum 159 mg/dL 070-061 5785/12/03 triglyceride, serum, fasting 118 mg/dL 30-200 HDL [...] Comp. Metabolic Panel - Chemistry potassium, serum 4.2 mmol/L 3.5-5.2 aspartate aminotransferase (SGOT), serum 19 U/L 15-37 calcium, serum 8.6 mg/dL 8.5-10.1 bilirubin, serum, total 0.30 mg/dL 0.00-1.00 urea nitrogen, blood 8 mg/dL 7-18 creatinine, serum 0.75 mg/dL 0.55-1.30 alanine aminotransferase (SGPT), serum 49 U/L aspartate aminotransferase (SGOT), serum 28 U/L 15-37 calcium, serum 9.4 mg/dL 8.5-10.1 bilirubin, serum, total 0.30 mg/dL 0.00-1.00 sodium, serum 140 mmol/L 273-791 5523/08/08 carbon dioxide, venous blood 33.7 mmol/L 21.0-32.0 potassium, serum 5.0 mmol/L 3.5-5.2 chloride, serum 103 mmol/L 98-107 blood glucose 80 mg/dL 65-110 urea nitrogen, blood 13 mg/dL 7-18 creatinine, serum 0.88 mg/dL 0.55-1.30 alanine aminotransferase (SGPT), serum 54 U/L -78 aspartate aminotransferase (SGOT), serum 29 U/L 15-37 calcium, serum 9.7 mg/dL 8.5-10.1 bilirubin, serum, total 0.30 mg/dL 0.00-1.00 sodium, serum 139 mmol/L 177-081 1924/01/11 creatinine, serum 1.00 mg/dL 0.55-1.30 alanine aminotransferase (SGPT), serum 48 U/L -78 aspartate aminotransferase (SGOT), serum 17 U/L 15-37 calcium, serum 9.1 mg/dL 8.5-10.1 bilirubin, serum, total 0.40 mg/dL 0.00-1.00 carbon dioxide, venous blood 26.6 mmol/L 21.0-32.0 potassium, serum 4.1 mmol/L 3.5-5.2 chloride, serum 100 mmol/L 98-107 blood glucose 86 mg/dL 65-110 urea nitrogen, blood 16 mg/dL 7-18 sodium, serum 139 mmol/L 982-422 2908/12/22 carbon dioxide, venous blood 26.8 mmol/L 21.0-32.0 chloride, serum 103 mmol/L 98-107 blood glucose 115 mg/dL 65-110 urea nitrogen, blood 20 mg/dL 7-18 creatinine, serum 0.90 mg/dL 0.55-1.30 alanine aminotransferase (SGPT), serum 38 U/L sodium, serum 142 mmol/L 800-700 6308/06/08 carbon dioxide, venous blood 27.6 mmol/L 21.0-32.0 potassium, serum 4.0 mmol/L 3.5-5.2 chloride, serum 105 mmol/L 98-107 blood glucose 95 mg/dL 65-110 Lab Report: Comp. Metabolic Panel, Erythrocyte Sed Rate - Chemistry sodium, serum 139 mmol/L 737-365 5075/12/11 creatinine, serum 0.96 mg/dL 0.55-1.30 alanine aminotransferase (SGPT), serum 34 U/L 12-78 aspartate aminotransferase (SGOT), serum 12 U/L 15-37 calcium, serum 8.6 mg/dL 8.5-10.1 bilirubin, serum, total 0.20 mg/dL 0.00-1.00 carbon dioxide, venous blood 25.4 mmol/L 21.0-32.0 potassium, serum 3.9 mmol/L 3.5-5.2 chloride, serum 105 mmol/L 98-107 blood glucose 98 mg/dL 65-110 urea nitrogen, blood 18 mg/dL 7-18 Lab Report: LH/Adult/615, FSH/Adult/470 - Chemistry follicle [...] TSH 2.35 m[iU]/mL 0.36-3.74 thyroxine, serum, free 0.98 ng/dL 0.76-1.46 TSH 1.48 m[iU]/mL 0.36-3.74 thyroxine, serum, free 1.02 ng/dL [...] leukocyte esterase, urine, by dipstick Negative Negative glucose, urine, semiquantitative Negative Negative nitrite, urine, semiquantitative Negative Negative [...] color Yellow Colorless;Lightyellow;Straw;Yellow appearance, urine SlCloudy Clear glucose, urine, semiquantitative Negative Negative ketones, urine, by test strip Negative Negative bilirubin, urine Negative Negative urine color Yellow Colorless;Lightyellow;Straw;Yellow ketones, urine, by test strip Negative Negative bilirubin, urine Negative Negative appearance, urine Clear Clear specific gravity, urine >=1.030 1.000-1.030 pH, urine, semiquantitative 5.5 5.0-8.5 urine color Yellow Colorless;Lightyellow;Straw;Yellow appearance, urine Clear Clear specific gravity, urine 1.020 1.000-1.030 pH, urine, semiquantitative 6.0 5.0-8.5 glucose, urine, semiquantitative Negative Negative urobilinogen, urine, semiquantitative (dipstick) 0.2 Normal leukocyte esterase, urine, by dipstick Negative Negative nitrite, urine, semiquantitative Negative Negative urine color Yellow Colorless;Lightyellow;Straw;Yellow specific gravity, urine 1.025 1.000-1.030 pH, urine, semiquantitative 5.5 5.0-8.5 urine color Yellow Colorless;Lightyellow;Straw;Yellow appearance, urine Clear Clear specific gravity, urine 1.025 1.000-1.030 pH, urine, semiquantitative 6.0 5.0-8.5 appearance, urine Clear Clear ketones, urine, by test strip Negative Negative bilirubin, urine Negative Negative Office Visit: Consult for Painful Lipoma - Chemistry cholesterol, target level 200 mg/dL triglyceride, target level 200 mg/dL HDL cholesterol, serum, target level 35 mg/dL LDL target level 100 mg/dL Encounters Code Encounter Date Provider Facility CPT-60255 Level 3 Est. Patient 14:27:52 CDT Neeraj Collins MD [facility] CPT-12796 Level 3 Est. Patient 08:56:03 CDT Luigi Martínez [facility] [place] [facility] [place] CPT-64831 Level 4 Est. Patient 12:11:48 CDT Fabiola Johnson [facility] [place] [facility] [place] CPT-14900 Level 3 New Patient 16:53:37 CDT Albert Caldera MD [facility] CPT-95081 Level 3 Est. Patient 11:25:49 CDT Renzo Thornton DO [facility] CPT-06994 Level 3 Est. Patient 15:22:01 CDT Ahmet Carbajal MD [facility] CPT-83182 Level 4 Est. Patient 09:00:51 ED EDUCATIONAL AIDE Vishal Hui MD [facility] CPT-94601 Level 3 Est. Patient 11:37:33 ED EDUCATIONAL AIDE Vishal Hui MD [facility] CPT-14624 Level 3 Est. Patient 08:41:09 ED EDUCATIONAL AIDE Vishal Hui MD [facility] CPT-71070 Level 4 Est. Patient 10:19:35 ED EDUCATIONAL AIDE Vishal Hui MD [facility] CPT-28915 Level 3 Est. Patient 13:35:45 CDT Vishal Hui MD [facility] CPT-80163 Level 4 Est. Patient 10:08:37 CDT Vishal Hui MD [facility] CPT-17655 Level 3 Est. Patient 11:22:10 CDT Vishal Hui MD [facility] CPT-56543 Level 3 Est. Patient 11:03:32 CDT Sahara Rodriguez MD PhD [facility]-77393 Level 3 Est. Patient 09:41:35 CDT Vishal Hui MD [facility] CPT-05251 Level 3 Est. Patient 12:00:41 CDT Neeraj Collins MD [facility] CPT-09774 Level 3 Est. Patient 09:16:24 CDT Vishal Hui MD [facility] CPT-65246 Level 4 Est. Patient 13:59:09 CDT Neeraj Collins MD [facility] CPT-32858 Level 3 Est. Patient 15:19:43 CDT Renzo Thornton DO [facility] CPT-85583 Level 3 Est. Patient 18:10:26 CDT Sahara Rodriguez MD [facility]-20168 Level 3 Est. Patient 14:49:50 CDT Vishal Hui MD [facility] CPT-66437 Level 4 Est. Patient 18:41:46 CDT Neeraj Collins MD [facility] CPT-33298 Level 4 Est. Patient 09:18:38 ED EDUCATIONAL AIDE Vishal Hui MD [facility]-82729 Level 3 Est. Patient 14:43:55 ED EDUCATIONAL AIDE Vishal Hui MD [facility] CPT-10076 Level 3 Est. Patient 15:26:33 ED EDUCATIONAL AIDE Sahara Rodriguez MD PhD [facility] CPT-02056 Level 3 Est. Patient 10:32:14 ED EDUCATIONAL AIDE Vishal Hui MD [facility] CPT-77012 Level 3 Est. Patient 15:12:52 ED EDUCATIONAL AIDE Vishal Hui MD [facility]-40372 Level 4 Est. Patient 09:19:27 CDT Vishal Hui MD [facility] CPT-24971 Level 3 Est. Patient 15:53:00 CDT Renzo W Norberto [facility] CPT-20409 Level 3 Est. Patient 15:50:30 CDT Renzo Thornton [facility] CPT-92052 Level 3 Est. Patient 16:55:24 CDT Vishal Hui MD [facility] Procedures Code Procedure Name Date Entry Date Standard Description CPT-73476 Wet Mount - LAB USE ONLY 17:44:58 CDT CPT-44256 UA w micro - LAB USE ONLY 17:44:58 CDT CPT-98400 CMP - LAB USE ONLY 17:44:58 CDT CPT-55523 Venipuncture Draw Fee 17:44:58 CDT CPT-88628 Cervical Min 4V - XRAY USE ONLY 09:01:40 CDT CPT-35818 Chest 2V Frontal and Lat - XRAY USE ONLY 11:06:31 CDT CPT-12210 EKG Trac and Interp - XRAY USE ONLY 11:31:43 CDT 08/26 CPT-J3420 Vitamin B12 1000mcg (Cyanocobalamin) 08:10:26 ED EDUCATIONAL AIDE 04/12 CPT-63693 Abx/Therapy Injection 08:10:26 ED EDUCATIONAL AIDE CPT-G0438 Initial Annual Wellness Exam 19:01:01 ED EDUCATIONAL AIDE CPT-J3420 Vitamin B12 1000mcg (Cyanocobalamin) 16:57:46 CDT 08/14 CPT-81232 Recombivax HB Injection Suspension 5 MCG/0.5ML 08:37:50 ED EDUCATIONAL AIDE CPT-07204 Immunization Single Admin 08:37:50 ED EDUCATIONAL AIDE CPT-J3420 Vitamin B12 1000mcg (Cyanocobalamin) 08:32:16 ED EDUCATIONAL AIDE 03/11 CPT-03447 Abx/Therapy Injection 08:32:16 ED EDUCATIONAL AIDE CPT-09224 Chest 2V Frontal and Lat 11:46:38 ED EDUCATIONAL AIDE CPT-70433 Venipuncture Draw Fee 09:12:45 ED EDUCATIONAL AIDE CPT-J3420 Vitamin B12 1000mcg (Cyanocobalamin) 08:50:15 ED EDUCATIONAL AIDE 02/08 CPT-88339 Abx/Therapy Injection 08:50:15 ED EDUCATIONAL AIDE CPT-Cryo Cryotherapy 10:19:35 ED EDUCATIONAL AIDE CPT-000 Give Appropriate Flu Vaccine 09:22:16 CDT CPT-J3420 Vitamin B12 1000mcg (Cyanocobalamin) 19:08:57 CDT 01/11 CPT-10424 Abx/Therapy Injection 19:08:57 CDT CPT-J3420 Vitamin B12 1000mcg (Cyanocobalamin) 08:19:08 CDT 12/11 CPT-81011 Abx/Therapy Injection 08:19:08 CDT CPT-J3420 Vitamin B12 1000mcg (Cyanocobalamin) 14:48:00 CDT 11/09 CPT-33908 Abx/Therapy Injection 14:47:59 CDT CPT-J3420 Vitamin B12 1000mcg (Cyanocobalamin) 08:34:04 CDT 10/09 CPT-93687 Abx/Therapy Injection 08:34:04 CDT CPT-J3420 Vitamin B12 1000mcg (Cyanocobalamin) 09:18:52 CDT 09/11 CPT-14451 Abx/Therapy Injection 09:18:52 CDT CPT-J3420 Vitamin B12 1000mcg (Cyanocobalamin) 08:35:44 CDT 09/04 CPT-57677 Abx/Therapy Injection 08:35:44 CDT CPT-51295 Immunization Single Admin 11:07:16 CDT CPT-72592 Hepatitis B adult IM 11:07:16 CDT CPT-J3420 Vitamin B12 1000mcg (Cyanocobalamin) 11:00:49 CDT 08/28 CPT-J1040 Depo Medrol 80 mg (Methyl Prednisolone Acetate) 11:00: 49 CDT CPT-38754 Abx/Therapy Injection 11:00:49 CDT CPT-J1040 Depo Medrol 80 mg (Methyl Prednisolone Acetate) 09:16: 23 CDT CPT-J3420 Vitamin B12 1000mcg (Cyanocobalamin) 08:27:05 CDT 08/20 CPT-92690 Abx/Therapy Injection 08:27:05 CDT CPT-41377 Recombivax HB Injection Suspension 5 MCG/0.5ML 10:00:41 CDT CPT-41045 Administration single or combination vaccine inc oral 10 :00:41 CDT CPT-15216 Sono transvag pelvis non OB uterus ovaries cervix 16:36: 57 CDT CPT-19022 LS spine comp w obliq 09:50:55 ED EDUCATIONAL AIDE CPT-73138 Abd compl w upright 09:50:55 ED EDUCATIONAL AIDE CPT-J1100 Decadron 4mg (Dexamethasone) 15:51:24 ED EDUCATIONAL AIDE CPT-J1030 Depo Medrol 40 mg (Methyl Prednisolone Acetate) 15:51: 24 ED EDUCATIONAL AIDE CPT-36853 Abx/Therapy Injection 15:51:24 ED EDUCATIONAL AIDE CPT-J1100 Decadron 4mg (Dexamethasone) 15:26:33 ED EDUCATIONAL AIDE CPT-J1030 Depo Medrol 40 mg (Methyl Prednisolone Acetate) 15:26: 33 ED EDUCATIONAL AIDE CPT-91020 Sono retroperitoneal complete kidneys and bladder 17:15: 30 CDT CPT-10304 Abd compl w upright 16:09:25 CDT CPT-J1100 Decadron 8mg (Dexamethasone) 17:07:57 CDT CPT-18565 Abx/Therapy Injection 17:07:57 CDT CPT-J1100 Decadron 8mg (Dexamethasone) 16:55:24 CDT CPT-17519 Chest 2V Frontal and Lat 16:32:44 CDT
--- OUTSIDE RECORDS SUMMARY | 2016-11-04 13:48 | XMS REPORT | Clinical Summary ---
Author Author Admin, QIE Organization [employer] Address Unknown Phone Unavailable Allergies, Adverse Reactions, [...] specified Headache, atypical 784.0 Active Luigi Martínez POWER LINEMAN Headache Elevated blood glucose 790.29 Resolved Vishal [...] MD UTI ICD-599.0 Inactive Vishal Hiu MD Elevated blood glucose ICD-790.29 Inactive Vishal Hui MD Medication List Medication Instructions Start Date Stop Date Generic Name NDC Status Provider Patient Instruction PREDNISONE 20 MG TAB 2 tabs daily for 4 days, 1 tab daily for 4 days, 1/2 tab daily for 4 days PREDNISONE 28104671297 Active Vishal Hui MD Active IMITREX 50 MG ORAL TABS 1/2 tab every 6 hours prn SUMATRIPTAN SUCCINATE 53852200510 Active Jillina Mauricio WALTERSN Active AMBIEN 5 MG ORAL TABS 1 tab at bedtime ZOLPIDEM TARTRATE 25753429063 Active Jillina Johnl POWER LINEMAN Active PROZAC 20 MG ORAL CAPS 1 tab daily FLUOXETINE HCL 00295099248 Active Jillina Fradwightl POWER LINEMAN Active ABILIFY 15 MG ORAL TABS 1 tab daily ARIPIPRAZOLE 85806696565 Active Jillina Frazell POWER LINEMAN Active MINIPRESS 2 MG CAPS 4 cap po at night PRAZOSIN HCL 12616668127 Active Jillina Frazell POWER LINEMAN Active TOPAMAX 50 MG ORAL TABS 1 tab twice daily TOPIRAMATE 10858614718 Active Pacollina Fradwightl POWER LINEMAN Active SAPHRIS 5 MG SUBL 1 po bid ASENAPINE MALEATE 84028155831 No Longer Active Pacollina Mauricio WALTERSN Active LATUDA 80 MG TABS Take one by mouth daily LURASIDONE HCL 71761254613 No Longer Active Jillina Fralebron WALTERSN Active AMLODIPINE BESYLATE 5 MG TABS 1 tablet by mouth daily AMLODIPINE BESYLATE 56677782514 No Longer Active Tataina Mauricio WALTERSN Active AMITRIPTYLINE HCL 100 MG TAB one at hs AMITRIPTYLINE HCL 01359276336 No Longer Active Vishal Hui MD Active TRAZODONE HCL 100 MG TAB take 1 at bedtime TRAZODONE HCL 14612296851 No Longer Active Vishal Hui MD Active VYVANSE 40 MG CAPS 1 daily, LISDEXAMFETAMINE DIMESYLATE 12561471954 No Longer Active Vishal Hui MD Active IBUPROFEN 600 MG TAB 1 po TID PRN IBUPROFEN 00253978005 No Longer Active Vishal Hui MD Active MIRALAX PACK 1 po qd PRN Constipation POLYETHYLENE GLYCOL 3350 66584435620 Active Vishal Hui MD Active PROZAC 20 MG CAP Take one by mouth daily FLUOXETINE HCL 96321782363 No Longer Active Vishal Hui MD Active ZOFRAN 4 MG TABS 1 po q6hr PRN Nausea ONDANSETRON HCL Active Vishal Hui MD Active BACTRIM DS 800-160 MG TABS 1 pill by mouth twice daily SULFAMETHOXAZOLE-TRIMETHOPRIM 60347728025 No Longer Active Sahara Rodriguez MD PhD Active DIFLUCAN 150 MG TAB 1 tablet by mouth daily FLUCONAZOLE 24773073925 No Longer Active Vishal Hui MD Active TIZANIDINE HCL 4 MG TABS 1 po q6hr PRN Muscle Spasm/Back Pain TIZANIDINE HCL 03678696618 Active Luigi Martínez APRN Active CLINDAMYCIN HCL 150 MG CAPS 1 four times a day CLINDAMYCIN HCL 76767722292 No Longer Active Neeraj Collins MD Active KEFLEX 500 MG ORAL CAPS 1 cap QID by mouth CEPHALEXIN 14438732893 No Longer Active Neeraj Collins MD Active DIFLUCAN 150 MG TABS 1 pill every other day x 2 doses FLUCONAZOLE 51272500211 No Longer Active Sahara Rodriguez MD PhD Active MELATONIN 3 MG CAPS 2 po q hs MELATONIN 94649836147 No Longer Active Sahara Rodriguez MD PhD Active MULTIVITAMINS CAPS Take one by mouth daily MULTIPLE VITAMIN 94325403627 No Longer Active Sahara Rodriguez MD PhD Active BACTRIM DS 800-160 MG TAB 1 tab by mouth twice daily TRIMETHOPRIM-SULFAMETHOXAZOLE 28133388970 No Longer Active Sahara Rodriguez MD PhD Active [facility] PROBIOTIC ORAL CHEW 2 daily po PROBIOTIC PRODUCT 90768301070 No Longer Active Sahara Rodriguez MD PhD Active BACTRIM DS 800-160 MG TABS 1 po BID x 7 days SULFAMETHOXAZOLE-TRIMETHOPRIM 41288930677 No Longer Active Vishal Hui MD Active CHANTIX STARTING MONTH EARNEST 0.5 MG X 11 & 1 MG X 42 TABS 0.5mg daily for 3 days , then 0.5mg BID for 4 days, then 1mg BID VARENICLINE TARTRATE 86471123342 No Longer Active TAMARA Gray Active METOPROLOL TARTRATE 50 MG TAB 1 po bid METOPROLOL TARTRATE 71280628027 Active Vishal Hui MD Active VERAPAMIL HCL CR 120 MG TAB CR 1 po bid VERAPAMIL HCL 93836776293 No Longer Active Vishal Hui MD Active METOPROLOL SUCCINATE 50 MG TB24 1 tablet by mouth daily METOPROLOL SUCCINATE 46867405039 No Longer Active Vishal Hui MD Active TRAMADOL HCL 50 MG TABS 1-2 po TID PRN Pain TRAMADOL HCL 66151956302 Active Luigi Martínez POWER LINEMAN Active SAPHRIS 10 MG SUBL 1 tab po bid ASENAPINE MALEATE 94244420790 No Longer Active Vishal Hui MD Active LISINOPRIL 20 MG TABS 1 tab po qd LISINOPRIL 52209874020 No Longer Active Vishal Hui MD Active BENADRYL 25 MG CAP 2 po tid prn anxiety DIPHENHYDRAMINE HCL 13277427008 Active Vishal Hui MD Active LATUDA 20 MG TABS Take one by mouth daily LURASIDONE HCL 97697727400 No Longer Active Vishal Hui MD Active TRAZODONE HCL 50 MG TABS 1/2 tab po qd prn for anxiety TRAZODONE HCL 99137455770 No Longer Active Vishal Hui MD Active PIROXICAM 20 MG CAPS 1 cap po qd PRN Pain PIROXICAM 41248204129 Active Vishal Hui MD Active OMEPRAZOLE 20 MG TBEC 1 po q a.m. 30min prior to first food intake OMEPRAZOLE 81928250900 Active Vishal Hui MD Active RANITIDINE HCL 150 MG CAPS 1 twice a day RANITIDINE HCL 16344047214 Active Vishal Hui MD Active LINZESS 290 MCG CAPS Take one by mouth daily LINACLOTIDE 70272381206 No Longer Active Vishal Hui MD Active SAPHRIS 5 MG SUBL 1 tab po qd ASENAPINE MALEATE 89521964479 No Longer Active Vishal Hui MD Active ZALEPLON 10 MG CAPS 1 cap po every other night ZALEPLON 20725913919 No Longer Active Vishal Hui MD Active LYRICA 50 MG CAPS 1 tab po TID PREGABALIN 00423654907 No Longer Active Vishal Hui MD Active LORATADINE 10 MG TABS 1 tab po qd LORATADINE 36517223749 No Longer Active Vishal Hui MD Active VERAPAMIL HCL ER 180 MG CR-TABS 1 tab po bid VERAPAMIL HCL 32566772619 No Longer Active Vishal Hui MD Active MIRALAX POWD 1 capfull once daily POLYETHYLENE GLYCOL 3350 51695684768 No Longer Active Vishal Hui MD Active PREDNISONE 20 MG TABS 1 tab po qd PREDNISONE 00706437983 No Longer Active Renzo Thornton DO Active LEVOFLOXACIN 500 MG TABS 1 tab po qd LEVOFLOXACIN 56852302935 No Longer Active Renzo Thornton DO Active BUSPIRONE HCL 15 MG TABS 1 tab po TID BUSPIRONE HCL 22213656075 No Longer Active Renzo Thornton DO Active BENZTROPINE MESYLATE 1 MG TABS 1 tab po qd BENZTROPINE MESYLATE 41617381580 No Longer Active Renzo Thornton DO Active ATENOLOL 25 MG TABS 1 tab po qd ATENOLOL 10012693280 No Longer Active Renzo Thornton DO Active ESCITALOPRAM OXALATE 20 MG TABS 1 tab po qd ESCITALOPRAM OXALATE 82535969294 No Longer Active eRnzo Thornton DO Active ADVAIR DISKUS 250-50 MCG/DOSE AEPB 1 puff BID FLUTICASONE-SALMETEROL 92591601435 No Longer Active Renzo Thornton DO Active PREDNISONE 20 MG TAB 2 tabs daily for 3 days, 1 tab daily for 3 days, 1/2 tab daily for 2 days PREDNISONE 30301404868 No Longer Active Vishal Hui MD Active CEFDINIR 300 MG CAPS by mouth twice a day CEFDINIR 47164703086 No Longer Active Vishal Hui MD Active LANSOPRAZOLE 30 MG CPDR 1 cap po qd LANSOPRAZOLE 18629124299 No Longer Active Vishal Hui MD Active BACLOFEN 20 MG TABS 1 tab po tid BACLOFEN 78862871442 No Longer Active Vishal Hui MD Active ADVAIR DISKUS 250-50 MCG/DOSE AEPB 1 puff BID ADVAIR DISKUS 250-50 MCG/DOSE AEPB FLUTICASONE-SALMETEROL Inactive ESCITALOPRAM OXALATE 20 MG TABS 1 tab po qd ESCITALOPRAM OXALATE 20 MG TABS 775781 ESCITALOPRAM OXALATE Inactive ATENOLOL 25 MG TABS 1 tab po qd ATENOLOL 25 MG TABS 804672 ATENOLOL Inactive BENZTROPINE MESYLATE 1 MG TABS 1 tab po qd BENZTROPINE MESYLATE 1 MG TABS 380646 BENZTROPINE MESYLATE Inactive BUSPIRONE HCL 15 MG TABS 1 tab po TID BUSPIRONE HCL 15 MG TABS 435368 BUSPIRONE HCL Inactive LEVOFLOXACIN 500 MG TABS 1 tab po qd LEVOFLOXACIN 500 MG TABS 570032 LEVOFLOXACIN Inactive PREDNISONE 20 MG TABS 1 tab po qd PREDNISONE 20 MG TABS 000822 PREDNISONE Inactive MIRALAX POWD 1 capfull once daily MIRALAX POWD 906714 POLYETHYLENE GLYCOL 3350 Inactive VERAPAMIL HCL ER 180 MG CR-TABS 1 tab po bid VERAPAMIL HCL ER 180 MG CR-TABS VERAPAMIL HCL Inactive LORATADINE 10 MG TABS 1 tab po qd LORATADINE 10 MG TABS 260566 LORATADINE Inactive LYRICA 50 MG CAPS 1 tab po TID LYRICA 50 MG CAPS PREGABALIN Inactive ZALEPLON 10 MG CAPS 1 cap po every other night ZALEPLON 10 MG CAPS 001997 ZALEPLON Inactive SAPHRIS 5 MG SUBL 1 tab po qd SAPHRIS 5 MG SUBL ASENAPINE MALEATE Inactive TRAZODONE HCL 50 MG TABS 1/2 tab po qd prn for anxiety TRAZODONE HCL 50 MG TABS 765560 TRAZODONE HCL Inactive LATUDA 20 MG TABS Take one by mouth daily LATUDA 20 MG TABS LURASIDONE HCL Inactive LISINOPRIL 20 MG TABS 1 tab po qd LISINOPRIL 20 MG TABS 841800 LISINOPRIL Inactive SAPHRIS 10 MG SUBL 1 [...] twice daily BACTRIM DS 800-160 MG TAB 597807 TRIMETHOPRIM-SULFAMETHOXAZOLE Inactive MULTIVITAMINS CAPS Take one by mouth daily MULTIVITAMINS CAPS MULTIPLE VITAMIN Inactive MELATONIN 3 MG CAPS 2 po q hs MELATONIN 3 MG CAPS 871692 MELATONIN Inactive KEFLEX 500 MG ORAL CAPS 1 cap QID by mouth KEFLEX 500 MG ORAL CAPS 556912 CEPHALEXIN Inactive CLINDAMYCIN HCL 150 MG CAPS 1 four times a day CLINDAMYCIN HCL 150 MG CAPS 597083 CLINDAMYCIN HCL Inactive DIFLUCAN 150 MG TAB 1 tablet by mouth daily DIFLUCAN 150 MG TAB 316397 FLUCONAZOLE Inactive PROZAC 20 MG CAP Take one by mouth daily PROZAC 20 MG CAP 085302 FLUOXETINE HCL Inactive IBUPROFEN 600 MG TAB 1 po TID PRN IBUPROFEN 600 MG TAB 948542 IBUPROFEN Inactive VYVANSE 40 MG CAPS 1 daily, VYVANSE 40 MG CAPS LISDEXAMFETAMINE DIMESYLATE Inactive TRAZODONE HCL 100 MG TAB take 1 at bedtime TRAZODONE HCL 100 MG TAB 958127 TRAZODONE HCL Inactive AMITRIPTYLINE HCL 100 MG TAB one at hs AMITRIPTYLINE HCL 100 MG TAB 245636 AMITRIPTYLINE HCL Inactive AMLODIPINE BESYLATE 5 MG TABS 1 tablet by mouth daily AMLODIPINE BESYLATE 5 MG TABS 960294 AMLODIPINE BESYLATE Inactive LATUDA 80 MG TABS Take one by mouth daily LATUDA 80 MG TABS LURASIDONE HCL Inactive SAPHRIS 5 MG SUBL 1 po bid SAPHRIS 5 MG SUBL ASENAPINE MALEATE Inactive CEFDINIR 300 MG CAPS by mouth twice a day CEFDINIR 300 MG CAPS 363452 CEFDINIR Inactive PREDNISONE 20 MG TAB 2 tabs daily for 3 days, 1 tab daily for 3 days, 1/2 tab daily for 2 days PREDNISONE 20 MG TAB 557163 PREDNISONE Inactive BACTRIM DS 800-160 MG TABS 1 po BID x 7 days BACTRIM DS 800-160 MG TABS 19820521 SULFAMETHOXAZOLE-TRIMETHOPRIM Inactive DIFLUCAN 150 MG TABS 1 pill every other day x 2 doses DIFLUCAN 150 MG TABS 047598 FLUCONAZOLE Inactive BACTRIM DS 800-160 MG TABS [...] % 11.6-14.8 platelet count 394 10^3/MM^3 10*3/mm3 630-560 4160/01/11 leukocyte count, blood 13.8 10^3/MM^3 10*3/mm3 4.6-10.2 [...] Panel - Chemistry sodium, serum 139 mmol/L 996-502 9167/12/03 carbon dioxide, venous blood 28.5 mmol/L 21.0-32.0 [...] 5.5 % 4.3-6.0 cholesterol, serum 159 mg/dL 493-051 3676/12/03 triglyceride, serum, fasting 118 mg/dL 30-200 HDL [...] ... - Chemistry sodium, serum 140 mmol/L 467-488 5517/05/28 potassium, serum 4.2 mmol/L 3.5-5.2 chloride, serum [...] Panel - Chemistry sodium, serum 141 mmol/L 994-826 8034 potassium, serum 4.3 mmol/L 3.5-5.2 chloride, serum 106 mmol/L 98-107 carbon dioxide, venous blood 25.7 mmol/L 21.0-32.0 blood glucose 119 mg/dL 65-110 urea nitrogen, blood 22 mg/dL 7-18 creatinine, serum 0.90 mg/dL 0.60-1.30 alanine aminotransferase (SGPT), serum 28 U/L 12-78 aspartate aminotransferase (SGOT), serum 13 U/L 15-37 calcium, serum 8.5 mg/dL 8.5-10.1 bilirubin, serum, total 0.20 mg/dL 0.00-1.00 sodium, serum 139 mmol/L 620-909 7666/12/22 carbon dioxide, venous blood 26.8 mmol/L 21.0-32.0 potassium, serum 4.2 mmol/L 3.5-5.2 chloride, serum 103 mmol/L 98-107 blood glucose 115 mg/dL 65-110 urea nitrogen, blood 20 mg/dL 7-18 creatinine, serum 0.90 mg/dL 0.55-1.30 alanine aminotransferase (SGPT), serum 38 U/L -78 aspartate aminotransferase (SGOT), serum 19 U/L 15-37 calcium, serum 8.6 mg/dL 8.5-10.1 bilirubin, serum, total 0.30 mg/dL 0.00-1.00 sodium, serum 139 mmol/L 286-125 6888/01/11 carbon dioxide, venous blood 26.6 mmol/L 21.0-32.0 [...] Rate - Chemistry sodium, serum 139 mmol/L 696-833 6785/12/11 carbon dioxide, venous blood 25.4 mmol/L 21.0-32.0 [...] 5.5 5.0-8.5 Lab Report: [facility] Chemistry protein, total urine random Negative [...] semiquantitative 7.0 5.0-8.5 Lab Report: Varicella-Zoater Inga IgG,IgM/28096, HEP Be Antibody/556, RUB ... - Serology rubella antibody, serum, IgG 2.88 Encounters Code Encounter Date Provider Facility [facility]-51512 Level 4 Est. Patient 09:00:51 CANT GANG SAWYER Vishal Hui MD [facility]-14744 Level 3 Est. Patient 11:37:33 CANT GANG SAWYER Vishal Hui MD [facility]-10626 Level 3 Est. Patient 08:41:09 CANT GANG SAWYER Vishal Hui MD [facility]-18494 Level 4 Est. Patient 10:19:35 CANT GANG SAWYER Vishal Hui MD [facility] [place]-61495 Level 3 Est. Patient 13:35:45 CDT Vishal Hui MD [facility]-43683 Level 4 Est. Patient 10:08:37 CDT Vishal Hui MD [facility]-72743 Level 3 Est. Patient 11:22:10 CDT Vishal Hui MD [facility]-15276 Level 3 Est. Patient 11:03:32 CDT Sahara Rodriguez MD PhD [facility]48462 Level 3 Est. Patient 09:41:35 CDT Vishal Hui MD [facility]88909 Level 3 Est. Patient 12:00:41 CDT Neeraj Collins MD [facility]74753 Level 3 Est. Patient 09:16:24 CDT Vishal Hui MD [facility]-02502 Level 4 Est. Patient 13:59:09 CDT Neeraj Collins MD [facility] CPT-26262 Level 3 Est. Patient 15:19:43 CDT Renzo Thornton [facility] CPT-52692 Level 3 Est. Patient 18:10:26 CDT Sahara Rodriguez MD [facility] CPT-32197 Level 3 Est. Patient 14:49:50 CDT Vishal Hui MD [facility] CPT-56807 Level 4 Est. Patient 18:41:46 CDT Neeraj Collins MD [facility] CPT-10305 Level 4 Est. Patient 09:18:38 CANT GANG SAWYER Vishal Hui MD [facility] CPT-25445 Level 3 Est. Patient 14:43:55 CANT GANG SAWYER Vishal Hui MD [facility] CPT-35662 Level 3 Est. Patient 15:26:33 CANT GANG SAWYER Sahara Rodriguez MD PhD [facility] CPT-19376 Level 3 Est. Patient 10:32:14 CANT GANG SAWYER Vishal Hui MD [facility] CPT-06108 Level 3 Est. Patient 15:12:52 CANT GANG SAWYER Vihsal Hiu MD [facility] CPT-42218 Level 4 Est. Patient 09:19:27 CDT Vishal Hui MD [facility] CPT-01032 Level 3 Est. Patient 15:53:00 CDT Renzo Thornton [facility] CPT-66973 Level 3 Est. Patient 15:50:30 CDT Renzo Thornton [facility] CPT-92305 Level 3 Est. Patient 16:55:24 CDT Vishal Hui MD [facility] Procedures Code Procedure Name Date Entry Date Standard Description CPT-J3420 Vitamin B12 1000mcg (Cyanocobalamin) 16:57:46 CDT 08/14 CPT-97015 Recombivax HB Injection Suspension 5 MCG/0.5ML 08:37:50 CANT GANG SAWYER CPT-03749 Immunization Single Admin 08:37:50 CANT GANG SAWYER CPT-J3420 Vitamin B12 1000mcg (Cyanocobalamin) 08:32:16 CANT GANG SAWYER 03/11 CPT-36040 Abx/Therapy Injection 08:32:16 CANT GANG SAWYER CPT-11807 Chest 2V Frontal and Lat 11:46:38 CANT GANG SAWYER CPT-09752 Venipuncture Draw Fee 09:12:45 CANT GANG SAWYER CPT-J3420 Vitamin B12 1000mcg (Cyanocobalamin) 08:50:15 CANT GANG SAWYER 02/08 CPT-67854 Abx/Therapy Injection 08:50:15 CANT GANG SAWYER CPT-Cryo Cryotherapy 10:19:35 CANT GANG SAWYER CPT-000 Give Appropriate Flu Vaccine 09:22:16 CDT CPT-J3420 Vitamin B12 1000mcg (Cyanocobalamin) 19:08:57 CDT 01/11 CPT-38569 Abx/Therapy Injection 19:08:57 CDT CPT-J3420 Vitamin B12 1000mcg (Cyanocobalamin) 08:19:08 CDT 12/11 CPT-83429 Abx/Therapy Injection 08:19:08 CDT CPT-J3420 Vitamin B12 1000mcg (Cyanocobalamin) 14:48:00 CDT 11/09 CPT-61546 Abx/Therapy Injection 14:47:59 CDT CPT-J3420 Vitamin B12 1000mcg (Cyanocobalamin) 08:34:04 CDT 10/09 CPT-28672 Abx/Therapy Injection 08:34:04 CDT CPT-J3420 Vitamin B12 1000mcg (Cyanocobalamin) 09:18:52 CDT 09/11 CPT-74676 Abx/Therapy Injection 09:18:52 CDT CPT-J3420 Vitamin B12 1000mcg (Cyanocobalamin) 08:35:44 CDT 09/04 CPT-93792 Abx/Therapy Injection 08:35:44 CDT CPT-62957 Immunization Single Admin 11:07:16 CDT CPT-67444 Hepatitis B adult IM 11:07:16 CDT CPT-J3420 Vitamin B12 1000mcg (Cyanocobalamin) 11:00:49 CDT 08/28 CPT-J1040 Depo Medrol 80 mg (Methyl Prednisolone Acetate) 11:00: 49 CDT CPT-71166 Abx/Therapy Injection 11:00:49 CDT CPT-J1040 Depo Medrol 80 mg (Methyl Prednisolone Acetate) 09:16: 23 CDT CPT-J3420 Vitamin B12 1000mcg (Cyanocobalamin) 08:27:05 CDT 08/20 CPT-66439 Abx/Therapy Injection 08:27:05 CDT CPT-58263 Recombivax HB Injection Suspension 5 MCG/0.5ML 10:00:41 CDT CPT-43039 Administration single or combination vaccine inc oral 10 :00:41 CDT CPT-18735 Sono transvag pelvis non OB uterus ovaries cervix 16:36: 57 CDT CPT-77985 LS spine comp w obliq 09:50:55 CANT GANG SAWYER CPT-14891 Abd compl w upright 09:50:55 CANT GANG SAWYER CPT-J1100 Decadron 4mg (Dexamethasone) 15:51:24 CANT GANG SAWYER CPT-J1030 Depo Medrol 40 mg (Methyl Prednisolone Acetate) 15:51: 24 CANT GANG SAWYER CPT-19102 Abx/Therapy Injection 15:51:24 CANT GANG SAWYER CPT-J1100 Decadron 4mg (Dexamethasone) 15:26:33 CANT GANG SAWYER CPT-J1030 Depo Medrol 40 mg (Methyl Prednisolone Acetate) 15:26: 33 CANT GANG SAWYER CPT-83168 Sono retroperitoneal complete kidneys and bladder 17:15: 30 CDT CPT-76745 Abd compl w upright 16:09:25 CDT CPT-J1100 Decadron 8mg (Dexamethasone) 17:07:57 CDT CPT-07611 Abx/Therapy Injection 17:07:57 CDT CPT-J1100 Decadron 8mg (Dexamethasone) 16:55:24 CDT CPT-87028 Chest 2V Frontal and Lat 16:32:44 CDT
--- OUTSIDE RECORDS SUMMARY | 2016-11-04 13:48 | XMS REPORT ---
Author Author [facility] Medical Staff Organization [facility] Address [address] [place], [place] [address] Phone [phone] Care Team Providers Care Horse Race Starter Name Role Phone OLGA PATEL APRN PP [phone] Summary purpose TRANSITION OF CARE AUTO GENERATION [...] Functional Status Finding Observation Time Abdomen Appearance round :45 Abdomen non-tender :45 Vick no :45 Urination normal :45 Quality sym/unlabored :45 Cough absent :45 Secretions no :45 Airway natural :45 Chest Tube no :45 Oxygen no :51 Temp >100.4 no :45 Temp <96.8 no :45 Chills with rigors no :45 HR > 90bpm no :45 Respirations > 20 no :45 Systolic <90 no :45 headache stiff neck no :45 Nursing Note Discharge instructions reviewed with pt-verbalized understanding. VS obtained, dc in good condition and ambulatory. :51 Vital signs Type Value Date Respiration Rate 18breaths per minute :51 Pulse 76beats per minute :51 Oxygen Saturation 100% :51 BP Systolic 120mmHg :51 BP Diastolic 76mmHg :51 Temperature 98.8F :51 Social history Type Value Smoking Status FORMER SMOKER Treatment Plan No treatment plan text is available for this visit. Hospital discharge instructions Dismissal Condition good Disposition on DC home DC Inst/Educ Give yes Med/Side Effects Rev yes PNE Vac none Flu Vac 2015 Tetanus Vac unknown
--- OUTSIDE RECORDS SUMMARY | 2016-11-04 13:48 | XMS REPORT ---
Author Author [facility] Medical Staff Organization [facility] Address [address] [place], [place] [address] Phone [phone] Care Team Providers Care Candy Maker Helper Name Role Phone TINO ABRAMS MD PP [phone] Summary purpose TRANSITION OF CARE AUTO GENERATION Chief Complaint and Reason for Visit Admit Diagnosis 1 NONINFECT VAG LEUKORRHEA Problem list No authorized problems tracked for [...] Code Type Description Date Performed Performing Physician 17951 CPT-4 EMERGENCY DEPT VISIT 07-21-2014 MINO CHEW 90276 CPT-4 EMERGENCY DEPT VISIT 07-21-2014 MINO CHEW Functional status Functional Status Finding Observation Time Muscle Strength LLE 5 ROM full resist [id number]:34 Abdomen Appearance obese 34-11-926087:34 Abdomen soft :34 Bowel Sounds present :34 Urination normal :34 Quality sym/unlabored :34 Breath Sounds RUL clear :34 Breath Sounds RML clear :34 Breath Sounds RLL clear :34 Breath Sounds BENJA clear :34 Breath Sounds LLL clear :34 Chest Tube no :34 Oxygen no : Oxygen Flow Rate RA : Temp >100.4 no : Temp <96.8 no :34 Chills with rigors no : HR > 90bpm no : Respirations > 20 no :34 Systolic <90 no : headache stiff neck no : Rapid Resp no :34 Nursing Note Dismissal instructions read to and by pt and she denies quesitons. PT dismissed in stable condition with d/c instructions and personal belongings. Pt denies quesitons and c/o and escorted to hospitial exit. :00 Vital signs Type Value Date Respiration Rate 18breaths per minute : Pulse 70beats per minute : Oxygen Saturation 99% :01 BP Systolic 117mmHg :01 BP Diastolic 66mmHg :01 Temperature 97.8F :01 Height 65inches :20 Weight 275LB :20 Social history Type Value Smoking Status FORMER SMOKER Treatment Plan No treatment plan text is available for this visit. Hospital discharge instructions Dismissal Condition good Disposition on DC home DC Inst/Educ Give yes Med/Side Effects Rev yes PNE Vac yes Flu Vac 2014 Tetanus Vac unk
--- OUTSIDE RECORDS SUMMARY | 2016-11-04 13:50 | XMS REPORT | Clinical Summary ---
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 Juliet Kimbrough [employer] Dependence on other enabling machines and devices [...] Instruction KEFLEX 500 MG CAP 1 po TID x 10 days CEPHALEXIN 03593787793 No Longer Active Vishal Hui MD Active ABILIFY MAINTENA 400 MG IM SUSR Injection once per month ARIPIPRAZOLE 33131917628 Active Juliet Kimbrough APRN Active PREDNISONE 20 MG TAB 2 tabs daily for 4 days, 1 tab daily for 4 days, 1/2 tab daily for 4 days PREDNISONE 28619193894 Active Vishal Hui MD Active IMITREX 50 MG ORAL TABS 1/2 tab every 6 hours prn SUMATRIPTAN SUCCINATE 14112148846 Active Luigi Martínez APRN Active AMBIEN 5 MG ORAL TABS 1 tab at bedtime ZOLPIDEM TARTRATE 77186927947 Active Luigi Martínez APRN Active PROZAC 20 MG ORAL CAPS 1 tab daily FLUOXETINE HCL 19388961415 Active Luigi Martínez APRN Active ABILIFY 15 MG ORAL TABS 1 tab daily ARIPIPRAZOLE 87861971641 Active Luigi Martínez APRN Active MINIPRESS 2 MG CAPS 4 cap po at night PRAZOSIN HCL 28462923769 Active Luigi Martínez APRN Active TOPAMAX 50 MG ORAL TABS 1 tab twice daily TOPIRAMATE 66886380676 Active Vishal Hui MD Active SAPHRIS 5 MG SUBL 1 po bid ASENAPINE MALEATE 29209916033 No Longer Active Luigi Martínez APRN Active LATUDA 80 MG TABS Take one by mouth daily LURASIDONE HCL 91430303158 No Longer Active Luigi Martínez APRN Active AMLODIPINE BESYLATE 5 MG TABS 1 tablet by mouth daily AMLODIPINE BESYLATE 82489883029 No Longer Active Luigi Martínez APRN Active AMITRIPTYLINE HCL 100 MG TAB one at hs AMITRIPTYLINE HCL 86428347291 No Longer Active Vishal Hui MD Active TRAZODONE HCL 100 MG TAB take 1 at bedtime TRAZODONE HCL 76704875648 No Longer Active Vishal Hui MD Active VYVANSE 40 MG CAPS 1 daily, LISDEXAMFETAMINE DIMESYLATE 88602504731 No Longer Active Vishal Hui MD Active IBUPROFEN 600 MG TAB 1 po TID PRN IBUPROFEN 93831468505 No Longer Active Vishal Hui MD Active MIRALAX PACK 1 po qd PRN Constipation POLYETHYLENE GLYCOL 3350 56938860014 Active Vishal Hui MD Active PROZAC 20 MG CAP Take one by mouth daily FLUOXETINE HCL 65352463689 No Longer Active Vishal Hui MD Active ZOFRAN 4 MG TABS 1 po q6hr PRN Nausea ONDANSETRON HCL Active Vishal Hui MD Active BACTRIM DS 800-160 MG TABS 1 pill by mouth twice daily SULFAMETHOXAZOLE-TRIMETHOPRIM 54220610423 No Longer Active Sahara Rodriguez MD PhD Active DIFLUCAN 150 MG TAB 1 tablet by mouth daily FLUCONAZOLE 16066300822 No Longer Active Vishal Hui MD Active TIZANIDINE HCL 4 MG TABS 1 po q6hr PRN Muscle Spasm/Back Pain TIZANIDINE HCL 00065955960 Active Luigi Martínez APRN Active CLINDAMYCIN HCL 150 MG CAPS 1 four times a day CLINDAMYCIN HCL 84780424464 No Longer Active Neeraj Collins MD Active KEFLEX 500 MG ORAL CAPS 1 cap QID by mouth CEPHALEXIN 29121149906 No Longer Active Neeraj Collins MD Active DIFLUCAN 150 MG TABS 1 pill every other day x 2 doses FLUCONAZOLE 76306634651 No Longer Active Sahara Rodriguez MD PhD Active MELATONIN 3 MG CAPS 2 po q hs MELATONIN 10666993638 No Longer Active Sahara Rodriguez MD PhD Active MULTIVITAMINS CAPS Take one by mouth daily MULTIPLE VITAMIN 85101253119 No Longer Active Sahara Rodriguez MD PhD Active BACTRIM DS 800-160 MG TAB 1 tab by mouth twice daily TRIMETHOPRIM-SULFAMETHOXAZOLE 42838334962 No Longer Active Sahara Rodriguez MD PhD Active [facility] PROBIOTIC ORAL CHEW 2 daily po PROBIOTIC PRODUCT 90386867919 No Longer Active Sahara Rodriguez MD PhD Active BACTRIM DS 800-160 MG TABS 1 po BID x 7 days SULFAMETHOXAZOLE-TRIMETHOPRIM 01891543686 No Longer Active Vishal Hui MD Active CHANTIX STARTING MONTH EARNEST 0.5 MG X 11 & 1 MG X 42 TABS 0.5mg daily for 3 days , then 0.5mg BID for 4 days, then 1mg BID VARENICLINE TARTRATE 53971241782 No Longer Active TAMARA Gray Active METOPROLOL TARTRATE 50 MG TAB 1 po bid METOPROLOL TARTRATE 18061724546 Active Vishal Hui MD Active VERAPAMIL HCL CR 120 MG TAB CR 1 po bid VERAPAMIL HCL 64678513708 No Longer Active Vishal Hui MD Active METOPROLOL SUCCINATE 50 MG TB24 1 tablet by mouth daily METOPROLOL SUCCINATE 59878919415 No Longer Active Vishal Hui MD Active TRAMADOL HCL 50 MG TABS 1-2 po TID PRN Pain TRAMADOL HCL 08426624263 Active Vishal Hui MD Active SAPHRIS 10 MG SUBL 1 tab po bid ASENAPINE MALEATE 92893205537 No Longer Active Vishal Hui MD Active LISINOPRIL 20 MG TABS 1 tab po qd LISINOPRIL 81473268783 No Longer Active Vishal Hui MD Active BENADRYL 25 MG CAP 2 po tid prn anxiety DIPHENHYDRAMINE HCL 42228657739 Active Vishal Hui MD Active LATUDA 20 MG TABS Take one by mouth daily LURASIDONE HCL 36803863675 No Longer Active Vishal Hui MD Active TRAZODONE HCL 50 MG TABS 1/2 tab po qd prn for anxiety TRAZODONE HCL 79289889531 No Longer Active Vishal Hui MD Active PIROXICAM 20 MG CAPS 1 cap po qd PRN Pain PIROXICAM 29344179206 Active Vishal Hui MD Active OMEPRAZOLE 20 MG TBEC 1 po q a.m. 30min prior to first food intake OMEPRAZOLE 31407460715 Active Vishal Hui MD Active RANITIDINE HCL 150 MG CAPS 1 twice a day RANITIDINE HCL 65961745442 Active Vishal Hui MD Active LINZESS 290 MCG CAPS Take one by mouth daily LINACLOTIDE 65587795775 No Longer Active Vishal Hui MD Active SAPHRIS 5 MG SUBL 1 tab po qd ASENAPINE MALEATE 31122660246 No Longer Active Vishal Hui MD Active ZALEPLON 10 MG CAPS 1 cap po every other night ZALEPLON 90350376781 No Longer Active Vishal Hui MD Active LYRICA 50 MG CAPS 1 tab po TID PREGABALIN 68115249446 No Longer Active Vishal Hui MD Active LORATADINE 10 MG TABS 1 tab po qd LORATADINE 97964580024 No Longer Active Vishal Hui MD Active VERAPAMIL HCL ER 180 MG CR-TABS 1 tab po bid VERAPAMIL HCL 32230604973 No Longer Active Vishal Hui MD Active MIRALAX POWD 1 capfull once daily POLYETHYLENE GLYCOL 3350 04242769054 No Longer Active Vishal Hui MD Active PREDNISONE 20 MG TABS 1 tab po qd PREDNISONE 58439741601 No Longer Active Renzo Thornton DO Active LEVOFLOXACIN 500 MG TABS 1 tab po qd LEVOFLOXACIN 43262845579 No Longer Active Renzo Thornton DO Active BUSPIRONE HCL 15 MG TABS 1 tab po TID BUSPIRONE HCL 72308304702 No Longer Active Renzo Thornton DO Active BENZTROPINE MESYLATE 1 MG TABS 1 tab po qd BENZTROPINE MESYLATE 34219180967 No Longer Active Renzo Thornton DO Active ATENOLOL 25 MG TABS 1 tab po qd ATENOLOL 95521338888 No Longer Active Renzo Thornton DO Active ESCITALOPRAM OXALATE 20 MG TABS 1 tab po qd ESCITALOPRAM OXALATE 39520402875 No Longer Active Renzo Thornton DO Active ADVAIR DISKUS 250-50 MCG/DOSE AEPB 1 puff BID FLUTICASONE-SALMETEROL 04943554800 No Longer Active Renzo Thornton DO Active PREDNISONE 20 MG TAB 2 tabs daily for 3 days, 1 tab daily for 3 days, 1/2 tab daily for 2 days PREDNISONE 50506407868 No Longer Active Vishal Hui MD Active CEFDINIR 300 MG CAPS by mouth twice a day CEFDINIR 33622013148 No Longer Active Vishal Hui MD Active LANSOPRAZOLE 30 MG CPDR 1 cap po qd LANSOPRAZOLE 75810950279 No Longer Active Vishal Hui MD Active BACLOFEN 20 MG TABS 1 tab po tid BACLOFEN 60383831694 No Longer Active Vishal Hui MD Active ADVAIR DISKUS 250-50 MCG/DOSE AEPB 1 puff BID ADVAIR DISKUS 250-50 MCG/DOSE AEPB FLUTICASONE-SALMETEROL Inactive ESCITALOPRAM OXALATE 20 MG TABS 1 tab po qd ESCITALOPRAM OXALATE 20 MG TABS 926238 ESCITALOPRAM OXALATE Inactive ATENOLOL 25 MG TABS 1 tab po qd ATENOLOL 25 MG TABS 831617 ATENOLOL Inactive BENZTROPINE MESYLATE 1 MG TABS 1 tab po qd BENZTROPINE MESYLATE 1 MG TABS 696163 BENZTROPINE MESYLATE Inactive BUSPIRONE HCL 15 MG TABS 1 tab po TID BUSPIRONE HCL 15 MG TABS 736593 BUSPIRONE HCL Inactive LEVOFLOXACIN 500 MG TABS 1 tab po qd LEVOFLOXACIN 500 MG TABS 990403 LEVOFLOXACIN Inactive PREDNISONE 20 MG TABS 1 tab po qd PREDNISONE 20 MG TABS 759840 PREDNISONE Inactive MIRALAX POWD 1 capfull once daily MIRALAX POWD 476153 POLYETHYLENE GLYCOL 3350 Inactive VERAPAMIL HCL ER 180 MG CR-TABS 1 tab po bid VERAPAMIL HCL ER 180 MG CR-TABS VERAPAMIL HCL Inactive LORATADINE 10 MG TABS 1 tab po qd LORATADINE 10 MG TABS 366925 LORATADINE Inactive LYRICA 50 MG CAPS 1 tab po TID LYRICA 50 MG CAPS PREGABALIN Inactive ZALEPLON 10 MG CAPS 1 cap po every other night ZALEPLON 10 MG CAPS 513748 ZALEPLON Inactive SAPHRIS 5 MG SUBL 1 tab po qd SAPHRIS 5 MG SUBL ASENAPINE MALEATE Inactive TRAZODONE HCL 50 MG TABS 1/2 tab po qd prn for anxiety TRAZODONE HCL 50 MG TABS 067656 TRAZODONE HCL Inactive LATUDA 20 MG TABS Take one by mouth daily LATUDA 20 MG TABS LURASIDONE HCL Inactive LISINOPRIL 20 MG TABS 1 tab po qd LISINOPRIL 20 MG TABS 723459 LISINOPRIL Inactive SAPHRIS 10 MG SUBL 1 [...] twice daily BACTRIM DS 800-160 MG TAB 716822 TRIMETHOPRIM-SULFAMETHOXAZOLE Inactive MULTIVITAMINS CAPS Take one by mouth daily MULTIVITAMINS CAPS MULTIPLE VITAMIN Inactive MELATONIN 3 MG CAPS 2 po q hs MELATONIN 3 MG CAPS 960147 MELATONIN Inactive KEFLEX 500 MG ORAL CAPS 1 cap QID by mouth KEFLEX 500 MG ORAL CAPS 308981 CEPHALEXIN Inactive CLINDAMYCIN HCL 150 MG CAPS 1 four times a day CLINDAMYCIN HCL 150 MG CAPS 308743 CLINDAMYCIN HCL Inactive DIFLUCAN 150 MG TAB 1 tablet by mouth daily DIFLUCAN 150 MG TAB 322801 FLUCONAZOLE Inactive PROZAC 20 MG CAP Take one by mouth daily PROZAC 20 MG CAP 324841 FLUOXETINE HCL Inactive IBUPROFEN 600 MG TAB 1 po TID PRN IBUPROFEN 600 MG TAB 620663 IBUPROFEN Inactive VYVANSE 40 MG CAPS 1 daily, VYVANSE 40 MG CAPS LISDEXAMFETAMINE DIMESYLATE Inactive TRAZODONE HCL 100 MG TAB take 1 at bedtime TRAZODONE HCL 100 MG TAB 252070 TRAZODONE HCL Inactive AMITRIPTYLINE HCL 100 MG TAB one at hs AMITRIPTYLINE HCL 100 MG TAB 892145 AMITRIPTYLINE HCL Inactive AMLODIPINE BESYLATE 5 MG TABS 1 tablet by mouth daily AMLODIPINE BESYLATE 5 MG TABS 910422 AMLODIPINE BESYLATE Inactive LATUDA 80 MG TABS Take one by mouth daily LATUDA 80 MG TABS LURASIDONE HCL Inactive SAPHRIS 5 MG SUBL 1 po bid SAPHRIS 5 MG SUBL ASENAPINE MALEATE Inactive CEFDINIR 300 MG CAPS by mouth twice a day CEFDINIR 300 MG CAPS 576528 CEFDINIR Inactive PREDNISONE 20 MG TAB 2 tabs daily for 3 days, 1 tab daily for 3 days, 1/2 tab daily for 2 days PREDNISONE 20 MG TAB 991768 PREDNISONE Inactive BACTRIM DS 800-160 MG TABS 1 po BID x 7 days BACTRIM DS 800-160 MG TABS 19820521 SULFAMETHOXAZOLE-TRIMETHOPRIM Inactive DIFLUCAN 150 MG TABS 1 pill every other day x 2 doses DIFLUCAN 150 MG TABS 311383 FLUCONAZOLE Inactive BACTRIM DS 800-160 MG TABS 1 pill by mouth twice daily BACTRIM DS 800-160 MG TABS 19820521 SULFAMETHOXAZOLE-TRIMETHOPRIM Inactive KEFLEX 500 MG CAP 1 po TID x 10 days KEFLEX 500 MG CAP 662951 CEPHALEXIN Inactive Advance Directives Directive Description Start [...] E&M - 3141-9 270 [lb_av] Weight Measured Diagnostic Results Date Name [...] % 11.6-14.8 platelet count 394 10^3/MM^3 10*3/mm3 382-103 1224/01/11 leukocyte count, blood 13.8 10^3/MM^3 10*3/mm3 4.6-10.2 [...] Panel - Chemistry sodium, serum 139 mmol/L 890-048 0541/12/03 carbon dioxide, venous blood 28.5 mmol/L 21.0-32.0 [...] 5.5 % 4.3-6.0 cholesterol, serum 159 mg/dL 318-838 3651/12/03 triglyceride, serum, fasting 118 mg/dL 30-200 HDL [...] ... - Chemistry sodium, serum 140 mmol/L 895-721 5932/05/28 potassium, serum 4.2 mmol/L 3.5-5.2 chloride, serum [...] Panel - Chemistry sodium, serum 141 mmol/L 913-378 3488 potassium, serum 4.3 mmol/L 3.5-5.2 chloride, serum 106 mmol/L 98-107 carbon dioxide, venous blood 25.7 mmol/L 21.0-32.0 blood glucose 119 mg/dL 65-110 urea nitrogen, blood 22 mg/dL 7-18 creatinine, serum 0.90 mg/dL 0.60-1.30 alanine aminotransferase (SGPT), serum 28 U/L 12-78 aspartate aminotransferase (SGOT), serum 13 U/L 15-37 calcium, serum 8.5 mg/dL 8.5-10.1 bilirubin, serum, total 0.20 mg/dL 0.00-1.00 sodium, serum 139 mmol/L 452-375 8801/12/22 carbon dioxide, venous blood 26.8 mmol/L 21.0-32.0 potassium, serum 4.2 mmol/L 3.5-5.2 chloride, serum 103 mmol/L 98-107 blood glucose 115 mg/dL 65-110 urea nitrogen, blood 20 mg/dL 7-18 creatinine, serum 0.90 mg/dL 0.55-1.30 alanine aminotransferase (SGPT), serum 38 U/L -78 aspartate aminotransferase (SGOT), serum 19 U/L 15-37 calcium, serum 8.6 mg/dL 8.5-10.1 bilirubin, serum, total 0.30 mg/dL 0.00-1.00 sodium, serum 139 mmol/L 397-632 8111/01/11 carbon dioxide, venous blood 26.6 mmol/L 21.0-32.0 [...] Rate - Chemistry sodium, serum 139 mmol/L 398-568 3311/12/11 carbon dioxide, venous blood 25.4 mmol/L 21.0-32.0 [...] pH, urine, semiquantitative 5.5 5.0-8.5 Lab Report: Varicella-Zoater Inga IgG,IgM/20533, HEP Be Antibody/556, RUB ... - Serology rubella antibody, serum, IgG 2.88 Encounters Code Encounter Date Provider Facility CPT-15216 Level 4 Est. Patient 09:00:51 BACK END DEVELOPER Vishal Hui MD [facility] CPT-13088 Level 3 Est. Patient 11:37:33 BACK END DEVELOPER Vishal Hui MD [facility] CPT-94816 Level 3 Est. Patient 08:41:09 BACK END DEVELOPER Vishal Hui MD [facility] CPT-82129 Level 4 Est. Patient 10:19:35 BACK END DEVELOPER Vishal Hui MD [facility] CPT-36749 Level 3 Est. Patient 13:35:45 CDT Vishal Hui MD [facility] CPT-41252 Level 4 Est. Patient 10:08:37 CDT Vishal Hui MD [facility]-47397 Level 3 Est. Patient 11:22:10 CDT Vishal Hui MD [facility] CPT-15616 Level 3 Est. Patient 11:03:32 CDT Sahara Rodriguez MD [facility]-63946 Level 3 Est. Patient 09:41:35 CDT Vishal Hui MD [facility]-34181 Level 3 Est. Patient 12:00:41 CDT Neeraj Collins MD [facility]-25447 Level 3 Est. Patient 09:16:24 CDT Vishal Hui MD [facility] CPT-24433 Level 4 Est. Patient 13:59:09 CDT Neeraj Collins MD [facility] CPT-88405 Level 3 Est. Patient 15:19:43 CDT Renzo Thornton DO [facility] CPT-19480 Level 3 Est. Patient 18:10:26 CDT Sahara Rodriguez MD [facility]-49831 Level 3 Est. Patient 14:49:50 CDT Vishal Hui MD [facility] CPT-10732 Level 4 Est. Patient 18:41:46 CDT Neeraj Collins MD [facility] CPT-19144 Level 4 Est. Patient 09:18:38 BACK END DEVELOPER Vishal Hui MD [facility]-99723 Level 3 Est. Patient 14:43:55 BACK END DEVELOPER Vishal Hui MD [facility] CPT-27037 Level 3 Est. Patient 15:26:33 BACK END DEVELOPER Sahara Rodriguez MD PhD [facility]-68748 Level 3 Est. Patient 10:32:14 BACK END DEVELOPER Vishal Hui MD [facility] CPT-16683 Level 3 Est. Patient 15:12:52 BACK END DEVELOPER Vishal Hui MD [facility] CPT-28463 Level 4 Est. Patient 09:19:27 CDT Vishal Hui MD [facility] CPT-26532 Level 3 Est. Patient 15:53:00 CDT Renzo Thornton [facility] CPT-50286 Level 3 Est. Patient 15:50:30 CDT Renzo Thornton [facility] CPT-48063 Level 3 Est. Patient 16:55:24 CDT Vishal Hui MD [facility] Procedures Code Procedure Name Date Entry Date Standard Description CPT-J3420 Vitamin B12 1000mcg (Cyanocobalamin) 08:10:26 BACK END DEVELOPER 04/12 CPT-21081 Abx/Therapy Injection 08:10:26 BACK END DEVELOPER CPT-G0438 Initial Annual Wellness Exam 19:01:01 BACK END DEVELOPER CPT-J3420 Vitamin B12 1000mcg (Cyanocobalamin) 16:57:46 CDT 08/14 CPT-33393 Recombivax HB Injection Suspension 5 MCG/0.5ML 08:37:50 BACK END DEVELOPER CPT-33816 Immunization Single Admin 08:37:50 BACK END DEVELOPER CPT-J3420 Vitamin B12 1000mcg (Cyanocobalamin) 08:32:16 BACK END DEVELOPER 03/11 CPT-30527 Abx/Therapy Injection 08:32:16 BACK END DEVELOPER CPT-20792 Chest 2V Frontal and Lat 11:46:38 BACK END DEVELOPER CPT-98220 Venipuncture Draw Fee 09:12:45 BACK END DEVELOPER CPT-J3420 Vitamin B12 1000mcg (Cyanocobalamin) 08:50:15 BACK END DEVELOPER 02/08 CPT-44854 Abx/Therapy Injection 08:50:15 BACK END DEVELOPER CPT-Cryo Cryotherapy 10:19:35 BACK END DEVELOPER CPT-000 Give Appropriate Flu Vaccine 09:22:16 CDT CPT-J3420 Vitamin B12 1000mcg (Cyanocobalamin) 19:08:57 CDT 01/11 CPT-56818 Abx/Therapy Injection 19:08:57 CDT CPT-J3420 Vitamin B12 1000mcg (Cyanocobalamin) 08:19:08 CDT 12/11 CPT-79757 Abx/Therapy Injection 08:19:08 CDT CPT-J3420 Vitamin B12 1000mcg (Cyanocobalamin) 14:48:00 CDT 11/09 CPT-43539 Abx/Therapy Injection 14:47:59 CDT CPT-J3420 Vitamin B12 1000mcg (Cyanocobalamin) 08:34:04 CDT 10/09 CPT-17056 Abx/Therapy Injection 08:34:04 CDT CPT-J3420 Vitamin B12 1000mcg (Cyanocobalamin) 09:18:52 CDT 09/11 CPT-25570 Abx/Therapy Injection 09:18:52 CDT CPT-J3420 Vitamin B12 1000mcg (Cyanocobalamin) 08:35:44 CDT 09/04 CPT-88477 Abx/Therapy Injection 08:35:44 CDT CPT-27311 Immunization Single Admin 11:07:16 CDT CPT-71156 Hepatitis B adult IM 11:07:16 CDT CPT-J3420 Vitamin B12 1000mcg (Cyanocobalamin) 11:00:49 CDT 08/28 CPT-J1040 Depo Medrol 80 mg (Methyl Prednisolone Acetate) 11:00: 49 CDT CPT-36851 Abx/Therapy Injection 11:00:49 CDT CPT-J1040 Depo Medrol 80 mg (Methyl Prednisolone Acetate) 09:16: 23 CDT CPT-J3420 Vitamin B12 1000mcg (Cyanocobalamin) 08:27:05 CDT 08/20 CPT-08647 Abx/Therapy Injection 08:27:05 CDT CPT-21604 Recombivax HB Injection Suspension 5 MCG/0.5ML 10:00:41 CDT CPT-53433 Administration single or combination vaccine inc oral 10 :00:41 CDT CPT-37837 Sono transvag pelvis non OB uterus ovaries cervix 16:36: 57 CDT CPT-59038 LS spine comp w obliq 09:50:55 BACK END DEVELOPER CPT-56049 Abd compl w upright 09:50:55 BACK END DEVELOPER CPT-J1100 Decadron 4mg (Dexamethasone) 15:51:24 BACK END DEVELOPER CPT-J1030 Depo Medrol 40 mg (Methyl Prednisolone Acetate) 15:51: 24 BACK END DEVELOPER CPT-86290 Abx/Therapy Injection 15:51:24 BACK END DEVELOPER CPT-J1100 Decadron 4mg (Dexamethasone) 15:26:33 BACK END DEVELOPER CPT-J1030 Depo Medrol 40 mg (Methyl Prednisolone Acetate) 15:26: 33 BACK END DEVELOPER CPT-42523 Sono retroperitoneal complete kidneys and bladder 17:15: 30 CDT CPT-03815 Abd compl w upright 16:09:25 CDT CPT-J1100 Decadron 8mg (Dexamethasone) 17:07:57 CDT CPT-26513 Abx/Therapy Injection 17:07:57 CDT CPT-J1100 Decadron 8mg (Dexamethasone) 16:55:24 CDT CPT-39035 Chest 2V Frontal and Lat 16:32:44 CDT
--- OUTSIDE RECORDS SUMMARY | 2016-11-04 13:53 | XMS REPORT | Clinical Summary ---
Author Author Admin, Dereck Organization [facility] Address Unknown Phone Unavailable Allergies, Adverse Reactions, Alerts Allergy Name Reaction Description Start Date Severity Status Provider REQUIP Unsure of reaction, states that she was in severe pain Critical Active Ahmet Carbajal MD AMITRIPTYLINE HCL Mood changes. 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 Juliet Kimbrough ASSOCIATE DEAN Dependence on other enabling machines and devices [...] of breath Nocturnal hypoxia 799.02 Active Fabiola Johnsno ASSOCIATE DEAN Hypoxemia Neck pain 723.1 Resolved Vishal Hui [...] Collins MD Bronchitis, acute 466.0 Resolved Ahmet aCrbajal MD Acute bronchitis Generalized anxiety disorder 300.02 Active Ahmet Carbajal MD Generalized anxiety disorder Planer Feeder well woman exam V72.31 Active Suzan Boo ASSOCIATE DEAN Routine gynecological examination Bronchitis, acute with mild bronchospasm 466.0 Active Suzan Boo ASSOCIATE DEAN Acute bronchitis Fibrocystic breast changes 610.1 Active Suzan Boo APRN Diffuse cystic 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 Suzan Boo ASSOCIATE DEAN Other specified conditions influencing health status Anxiety [...] SOLN 1 drop PRN eye spasms TROPICAMIDE 60769993814 Active Samantha Stephan RMA Active RISPERDAL 4 MG ORAL TABS 1 tab at bedtime RISPERIDONE 43154095360 Active Samantha Stephan RMA Active LEVAQUIN 500 MG TABS 1 daily for infection LEVOFLOXACIN 09254214053 Active Suzan Boo APRN Active TESSALON PERLES 100 MG CAPS 1 three times a day as needed for cough BENZONATATE 99078007007 Active Suzan Boo APRN Active ZOFRAN 4 MG TABS 1 po q6hr PRN Nausea ONDANSETRON HCL No Longer Active Suzan Boo APRN Active FLUTICASONE PROPIONATE 50 MCG/ACT SUSP 2 sprays each nostril daily before bed. FLUTICASONE PROPIONATE 98154905740 No Longer Active Suzan Boo APRN Active ASPIRIN 325 MG ORAL TABS 1 tab q.d ASPIRIN 99627458376 No Longer Active Suzan Boo APRN Active HALOPERIDOL 10 MG ORAL TABS 1 tab q.d HALOPERIDOL 40188480345 No Longer Active Suzan Boo APRN Active GUAIFENESIN-CODEINE 100-10 MG/5ML SYRP 5ml every 4 to 6 hours as needed for cough GUAIFENESIN-CODEINE 43319155167 No Longer Active Suzan Boo APRN Active ZITHROMAX Z-EARNEST 250 MG TABS 2 today and then 1 daily for 4 days AZITHROMYCIN 02887031373 No Longer Active Suzan Boo APRN Active PREDNISONE 10 MG TABS 2 daily for 5 days then 1 daily for 5 days PREDNISONE 43309288778 Active Suzan Boo APRN Active CLONAZEPAM 1 MG ORAL TABS 1 twice a day and an additional 1 tablet every other day as needed for pseudoseizures or anxiety CLONAZEPAM 54973249885 Active Ahmet Carbajal MD Active HYDROCODONE-ACETAMINOPHEN 5-325 MG ORAL TABS 1 tab two times a day HYDROCODONE-ACETAMINOPHEN 82041781031 No Longer Active Ahmet Carbajal MD Active LAMICTAL 100 MG ORAL TABS 1 tab 2 times qd. LAMOTRIGINE 04400325393 Active Ahmet Carbajal MD Active PREDNISONE 20 MG TABS 2 daily for 5 days then 1 daily for 5 days PREDNISONE 43021021863 No Longer Active Ahmet Carbajal MD Active FLUTICASONE PROPIONATE 50 MCG/ACT SUSP 1 to 2 sprays each nostril daily for allergies FLUTICASONE PROPIONATE 48730909200 Active Tila Valenzuela Active BENADRYL 25 MG CAP 4 po at bedtime for insomnia DIPHENHYDRAMINE HCL 26366383059 No Longer Active Ahmet Carbajal MD Active ADVAIR DISKUS 250-50 MCG/DOSE INH AEPB 1 puff twice a day for asthma FLUTICASONE-SALMETEROL 07340627523 No Longer Active Ahmet Carbajal MD Active KLONOPIN 1 MG ORAL TABS 1 tab po TID CLONAZEPAM 42995128232 No Longer Active Ahmet Carbajal MD Active ABILIFY MAINTENA 400 MG IM SUSR 400mg injection every 26 days ARIPIPRAZOLE 39224004455 No Longer Active Ahmet Carbajal MD Active TRAMADOL HCL 50 MG TABS 1/2-1 tab TID PRN TRAMADOL HCL 61081615136 No Longer Active Ahmet Carbajal MD Active BACTRIM DS 800-160 MG TABS 1 twice a day SULFAMETHOXAZOLE- TRIMETHOPRIM 19221148978 No Longer Active Ahmet Carbajal MD Active PROAIR HFA 108 (90 BASE) MCG/ACT AERS 2 puffs four times a day as needed 2015 ALBUTEROL SULFATE 34502231276 Active Ahmet Carbajal MD Active EQ NICOTINE 21 MG/24HR TRANS PT24 Apply daily to stop smoking NICOTINE 88906997358 Active Ahmet Carbajal MD Active MONISTAT 7 COMBO PACK WOODROW 100 & 2 MG-% (9GM) VAG KIT 1 applicatorful per vagina q pm x 7 MICONAZOLE NITRATE 48503146869 No Longer Active Ahmet Carbajal MD Active FLAGYL 500 MG TAB 1 tablet by mouth bid METRONIDAZOLE 30693069655 No Longer Active Ahmet Carbajal MD Active OXYCODONE HCL ER 10 MG ORAL T12A 1/2 tab by mouth every 4 hours prn OXYCODONE HCL 83241793128 No Longer Active Ahmet Carbajal MD Active METHYLPREDNISOLONE 4 MG ORAL TABS po daily METHYLPREDNISOLONE 03650625450 No Longer Active Ahmet aCrbajal MD Active LEVOFLOXACIN 500 MG ORAL TABS po daily LEVOFLOXACIN 02520754666 No Longer Active Ahmet Carbajal MD Active VIIBRYD 10 MG ORAL TABS Take 1 tablet once a day VILAZODONE HCL 58503543480 No Longer Active Ahmet Carbajal MD Active TOPAMAX 50 MG ORAL TABS 1 tab twice daily TOPIRAMATE 06469187945 No Longer Active Ahmet Carbajal MD Active DICLOFENAC SODIUM 50 MG TBEC 1 tablet by mouth four times daily PRN Pain 2015 DICLOFENAC SODIUM 71581498073 No Longer Active Ahmet Carbajal MD Active ADZENYS XR-ODT 6.3 MG ORAL TBED 1 tab po daily for ADHD AMPHETAMINE 53302946852 No Longer Active Ahmet Carbajal MD Active CHANTIX 1 MG TABS 1 twice a day to help quit smoking VARENICLINE TARTRATE 43502718527 No Longer Active Dipika Burgos MD Active CHANTIX STARTING MONTH EARNEST 0.5 MG X 11 & 1 MG X 42 TABS take as directed 2015 VARENICLINE TARTRATE 46852751770 No Longer Active Dipika Burgos MD Active TESSALON PERLES 100 MG CAP 1 to 2 tablets by mouth 3 times daily as needed for cough BENZONATATE 49851604422 No Longer Active Luigi Martínez APRN Active IMITREX 50 MG ORAL TABS 0.5 po x 1 PRN Headache. May repeat dose x 1 in 2 hours if needed SUMATRIPTAN SUCCINATE 79880953009 Active hAmet Carbajal MD Active HYDROCODONE-ACETAMINOPHEN 5-325 MG TABS 1 to 2 four times a day as needed for pain use until can be seen by specialist HYDROCODONE- ACETAMINOPHEN 02362262945 No Longer Active Vishal Hui MD Active PROAIR HFA 108 (90 BASE) MCG/ACT AERS 2 puffs four times a day as needed 2015 ALBUTEROL SULFATE 35341464464 No Longer Active Vishal Hui MD Active PREDNISONE 20 MG TABS 2 daily for 5 days then 1 daily for 5 days PREDNISONE 04480260534 No Longer Active Vishal Hui MD Active ZITHROMAX Z-EARNEST 250 MG TABS 2 today and then 1 daily for 4 days AZITHROMYCIN 27716906360 No Longer Active Vishal Hui MD Active DICLOFENAC POTASSIUM TABS Take 1 tablet twice a day (pt. is not sure of the dose.) DICLOFENAC POTASSIUM TABS 10944791586 No Longer Active Vishal Hui MD Active VERAPAMIL HCL ER 120 MG ORAL CR-TABS Take 1 tablet by mouth twice a day. VERAPAMIL HCL 42695989499 Active Vishal Hui MD Active FLAGYL 500 MG TAB 1 tablet by mouth bid METRONIDAZOLE 36806298199 No Longer Active Vishal Hui MD Active VALIUM 5 MG TAB Take 1-2 tablets daily DIAZEPAM 82669020875 No Longer Active Fabiola Johnson APRN Active METOPROLOL TARTRATE 25 MG ORAL TABS 1/2 tablet twice daily for heart rate and blood pressure METOPROLOL TARTRATE 90709715014 No Longer Active Fabiola Johnson APRN Active MIRALAX ORAL POWD 17GMS DAILY IN WATER POLYETHYLENE GLYCOL 3350 23525220539 Active TAMARA Casey Active MIRALAX PACK 1 po qd PRN Constipation POLYETHYLENE GLYCOL 3350 13700877129 No Longer Active Ahmet Carbajal MD Active MINIPRESS 2 MG CAPS 4 cap po at night PRAZOSIN HCL 43114446458 No Longer Active Ahmet Carbajal MD Active PIROXICAM 20 MG CAPS 1 cap po qd PRN Pain PIROXICAM 01021484806 No Longer Active Ahmet Carbajal MD Active TRAMADOL HCL 50 MG TABS 1-2 po TID PRN Pain TRAMADOL HCL 72881910528 No Longer Active Ahmet Carbajal MD Active METOPROLOL TARTRATE 50 MG TAB 1 po bid METOPROLOL TARTRATE 77490021837 No Longer Active Ahmet Carbajal MD Active ABILIFY 15 MG ORAL TABS 1 tab daily ARIPIPRAZOLE 19836348843 No Longer Active Ahmet Carbajal MD Active PROZAC 20 MG ORAL CAPS 1 tab daily FLUOXETINE HCL 40113326835 No Longer Active Ahmet Carbajal MD Active AMBIEN 5 MG ORAL TABS 1 tab at bedtime ZOLPIDEM TARTRATE 90982853682 No Longer Active Ahmet Carbajal MD Active PREDNISONE 20 MG TAB 2 tabs daily for 4 days, 1 tab daily for 4 days, 1/2 tab daily for 4 days PREDNISONE 04159303023 No Longer Active Ahmet Carbajal MD Active KEFLEX 500 MG CAP 1 po TID x 10 days CEPHALEXIN 05423050534 No Longer Active Vishal Hui MD Active SAPHRIS 5 MG SUBL 1 po bid ASENAPINE MALEATE 06082727053 No Longer Active Jillina Frazell ASSOCIATE DEAN Active LATUDA 80 MG TABS Take one by mouth daily LURASIDONE HCL 20898307474 No Longer Active Jillina Frazell ASSOCIATE DEAN Active AMLODIPINE BESYLATE 5 MG TABS 1 tablet by mouth daily AMLODIPINE BESYLATE 18678016938 No Longer Active Jillina Frazell ASSOCIATE DEAN Active AMITRIPTYLINE HCL 100 MG TAB one at hs AMITRIPTYLINE HCL 60328120653 No Longer Active Vishal Hui MD Active TRAZODONE HCL 100 MG TAB take 1 at bedtime TRAZODONE HCL 72766545153 No Longer Active Vishal Hui MD Active VYVANSE 40 MG CAPS 1 daily, LISDEXAMFETAMINE DIMESYLATE 23949078927 No Longer Active Vishal Hui MD Active IBUPROFEN 600 MG TAB 1 po TID PRN IBUPROFEN 21699608456 No Longer Active Vishal Hui MD Active PROZAC 20 MG CAP Take one by mouth daily FLUOXETINE HCL 10889052237 No Longer Active Vishal Hui MD Active BACTRIM DS 800-160 MG TABS 1 pill by mouth twice daily SULFAMETHOXAZOLE-TRIMETHOPRIM 43312963987 No Longer Active Sahara Rodriguez MD PhD Active DIFLUCAN 150 MG TAB 1 tablet by mouth daily FLUCONAZOLE 50667517593 No Longer Active Vishal Hui MD Active TIZANIDINE HCL 4 MG TABS 1 po q6hr PRN Muscle Spasm/Back Pain TIZANIDINE HCL 54964703051 Active Vishal Hui MD Active CLINDAMYCIN HCL 150 MG CAPS 1 four times a day CLINDAMYCIN HCL 05574172468 No Longer Active Neeraj Collins MD Active KEFLEX 500 MG ORAL CAPS 1 cap QID by mouth CEPHALEXIN 05737225862 No Longer Active Neeraj Collins MD Active DIFLUCAN 150 MG TABS 1 pill every other day x 2 doses FLUCONAZOLE 29033329857 No Longer Active Sahara Rodriguez MD PhD Active MELATONIN 3 MG CAPS 2 po q hs MELATONIN 42263307172 No Longer Active Sahara Rodriguez MD PhD Active MULTIVITAMINS CAPS Take one by mouth daily MULTIPLE VITAMIN 49625158650 No Longer Active Sahara Rodriguez MD PhD Active BACTRIM DS 800-160 MG TAB 1 tab by mouth twice daily TRIMETHOPRIM-SULFAMETHOXAZOLE 72144789615 No Longer Active Sahara Rodriguez MD PhD Active [facility] PROBIOTIC ORAL CHEW 2 daily po PROBIOTIC PRODUCT 63205679882 No Longer Active Sahara Rodriguez MD PhD Active BACTRIM DS 800-160 MG TABS 1 po BID x 7 days SULFAMETHOXAZOLE-TRIMETHOPRIM 77430450245 No Longer Active Vishal Hui MD Active CHANTIX STARTING MONTH EARNEST 0.5 MG X 11 & 1 MG X 42 TABS 0.5mg daily for 3 days , then 0.5mg BID for 4 days, then 1mg BID VARENICLINE TARTRATE 62732510918 No Longer Active TAMARA Gray Active VERAPAMIL HCL CR 120 MG TAB CR 1 po bid VERAPAMIL HCL 55492355157 No Longer Active Vishal Hui MD Active METOPROLOL SUCCINATE 50 MG TB24 1 tablet by mouth daily METOPROLOL SUCCINATE 35052864893 No Longer Active Vishal Hui MD Active SAPHRIS 10 MG SUBL 1 tab po bid ASENAPINE MALEATE 82538947725 No Longer Active Vishal Hui MD Active LISINOPRIL 20 MG TABS 1 tab po qd LISINOPRIL 76742574554 No Longer Active Vishal Hui MD Active LATUDA 20 MG TABS Take one by mouth daily LURASIDONE HCL 27819647150 No Longer Active Vishal Hui MD Active TRAZODONE HCL 50 MG TABS 1/2 tab po qd prn for anxiety TRAZODONE HCL 49129802821 No Longer Active Vishal Hui MD Active OMEPRAZOLE 20 MG TBEC 1 po q a.m. 30min prior to first food intake OMEPRAZOLE 32667939769 Active TAMARA Casey Active RANITIDINE HCL 150 MG CAPS 1 twice a day RANITIDINE HCL 00363980807 Active Luigi Martínez APRN Active LINZESS 290 MCG CAPS Take one by mouth daily LINACLOTIDE 51273101870 No Longer Active Vishal Hui MD Active SAPHRIS 5 MG SUBL 1 tab po qd ASENAPINE MALEATE 20801779921 No Longer Active Vishal Hui MD Active ZALEPLON 10 MG CAPS 1 cap po every other night ZALEPLON 42507115259 No Longer Active Vishal Hui MD Active LYRICA 50 MG CAPS 1 tab po TID PREGABALIN 26658948361 No Longer Active Vishal Hui MD Active LORATADINE 10 MG TABS 1 tab po qd LORATADINE 11419611591 No Longer Active Vishal Hui MD Active VERAPAMIL HCL ER 180 MG CR-TABS 1 tab po bid VERAPAMIL HCL 19514551324 No Longer Active Vishal Hui MD Active MIRALAX POWD 1 capfull once daily POLYETHYLENE GLYCOL 3350 36424218794 No Longer Active Vishal Hui MD Active PREDNISONE 20 MG TABS 1 tab po qd PREDNISONE 81961444827 No Longer Active Renzo Thornton DO Active LEVOFLOXACIN 500 MG TABS 1 tab po qd LEVOFLOXACIN 42664234389 No Longer Active Renzo Thornton DO Active BUSPIRONE HCL 15 MG TABS 1 tab po TID BUSPIRONE HCL 77710447094 No Longer Active Renzo Thornton DO Active BENZTROPINE MESYLATE 1 MG TABS 1 tab po qd BENZTROPINE MESYLATE 97767039406 No Longer Active Renzo Thornton DO Active ATENOLOL 25 MG TABS 1 tab po qd ATENOLOL 57167482236 No Longer Active Renzo Thornton DO Active ESCITALOPRAM OXALATE 20 MG TABS 1 tab po qd ESCITALOPRAM OXALATE 52001776440 No Longer Active Renzo Thornton DO Active ADVAIR DISKUS 250-50 MCG/DOSE AEPB 1 puff BID FLUTICASONE-SALMETEROL 57847934196 No Longer Active Renzo Thorntno DO Active PREDNISONE 20 MG TAB 2 tabs daily for 3 days, 1 tab daily for 3 days, 1/2 tab daily for 2 days PREDNISONE 24099106047 No Longer Active Vishal Hui MD Active CEFDINIR 300 MG CAPS by mouth twice a day CEFDINIR 44379145785 No Longer Active Vishal Hui MD Active LANSOPRAZOLE 30 MG CPDR 1 cap po qd LANSOPRAZOLE 21563085896 No Longer Active Vishal Hui MD Active BACLOFEN 20 MG TABS 1 tab po tid BACLOFEN 72748423472 No Longer Active Vishal Hui MD Active ADVAIR DISKUS 250-50 MCG/DOSE AEPB 1 puff BID ADVAIR DISKUS 250-50 MCG/DOSE AEPB FLUTICASONE-SALMETEROL Inactive ESCITALOPRAM OXALATE 20 MG TABS 1 tab po qd ESCITALOPRAM OXALATE 20 MG TABS 070520 ESCITALOPRAM OXALATE Inactive ATENOLOL 25 MG TABS 1 tab po qd ATENOLOL 25 MG TABS 889743 ATENOLOL Inactive BENZTROPINE MESYLATE 1 MG TABS 1 tab po qd BENZTROPINE MESYLATE 1 MG TABS 518743 BENZTROPINE MESYLATE Inactive BUSPIRONE HCL 15 MG TABS 1 tab po TID BUSPIRONE HCL 15 MG TABS 028002 BUSPIRONE HCL Inactive LEVOFLOXACIN 500 MG TABS 1 tab po qd LEVOFLOXACIN 500 MG TABS 023676 LEVOFLOXACIN Inactive PREDNISONE 20 MG TABS 1 tab po qd PREDNISONE 20 MG TABS 979330 PREDNISONE Inactive MIRALAX POWD 1 capfull once daily MIRALAX POWD 981565 POLYETHYLENE GLYCOL 3350 Inactive VERAPAMIL HCL ER 180 MG CR-TABS 1 tab po bid VERAPAMIL HCL ER 180 MG CR-TABS VERAPAMIL HCL Inactive LORATADINE 10 MG TABS 1 tab po qd LORATADINE 10 MG TABS 974037 LORATADINE Inactive LYRICA 50 MG CAPS 1 tab po TID LYRICA 50 MG CAPS PREGABALIN Inactive ZALEPLON 10 MG CAPS 1 cap po every other night ZALEPLON 10 MG CAPS 127724 ZALEPLON Inactive SAPHRIS 5 MG SUBL 1 tab po qd SAPHRIS 5 MG SUBL ASENAPINE MALEATE Inactive TRAZODONE HCL 50 MG TABS 1/2 tab po qd prn for anxiety TRAZODONE HCL 50 MG TABS 185310 TRAZODONE HCL Inactive LATUDA 20 MG TABS Take one by mouth daily LATUDA 20 MG TABS LURASIDONE HCL Inactive LISINOPRIL 20 MG TABS 1 tab po qd LISINOPRIL 20 MG TABS 214123 LISINOPRIL Inactive SAPHRIS 10 MG SUBL 1 [...] twice daily BACTRIM DS 800-160 MG TAB 951570 TRIMETHOPRIM-SULFAMETHOXAZOLE Inactive MULTIVITAMINS CAPS Take one by mouth daily MULTIVITAMINS CAPS MULTIPLE VITAMIN Inactive MELATONIN 3 MG CAPS 2 po q hs MELATONIN 3 MG CAPS 19950526 MELATONIN Inactive KEFLEX 500 MG ORAL CAPS 1 cap QID by mouth KEFLEX 500 MG ORAL CAPS 090540 CEPHALEXIN Inactive CLINDAMYCIN HCL 150 MG CAPS 1 four times a day CLINDAMYCIN HCL 150 MG CAPS 706105 CLINDAMYCIN HCL Inactive DIFLUCAN 150 MG TAB 1 tablet by mouth daily DIFLUCAN 150 MG TAB 416955 FLUCONAZOLE Inactive PROZAC 20 MG CAP Take one by mouth daily PROZAC 20 MG CAP 085315 FLUOXETINE HCL Inactive IBUPROFEN 600 MG TAB 1 po TID PRN IBUPROFEN 600 MG TAB 474030 IBUPROFEN Inactive VYVANSE 40 MG CAPS 1 daily, VYVANSE 40 MG CAPS LISDEXAMFETAMINE DIMESYLATE Inactive TRAZODONE HCL 100 MG TAB take 1 at bedtime TRAZODONE HCL 100 MG TAB 300114 TRAZODONE HCL Inactive AMITRIPTYLINE HCL 100 MG TAB one at hs AMITRIPTYLINE HCL 100 MG TAB 420492 AMITRIPTYLINE HCL Inactive AMLODIPINE BESYLATE 5 MG TABS 1 tablet by mouth daily AMLODIPINE BESYLATE 5 MG TABS 012064 AMLODIPINE BESYLATE Inactive LATUDA 80 MG TABS Take one by mouth daily LATUDA 80 MG TABS LURASIDONE HCL Inactive SAPHRIS 5 MG SUBL 1 po bid SAPHRIS 5 MG SUBL ASENAPINE MALEATE Inactive PREDNISONE 20 MG TAB 2 tabs daily for 4 days, 1 tab daily for 4 days, 1/2 tab daily for 4 days PREDNISONE 20 MG TAB 494835 PREDNISONE Inactive AMBIEN 5 MG ORAL TABS 1 tab at bedtime AMBIEN 5 MG ORAL TABS 281854 ZOLPIDEM TARTRATE Inactive PROZAC 20 MG ORAL CAPS 1 tab daily PROZAC 20 MG ORAL CAPS 475119 FLUOXETINE HCL Inactive ABILIFY 15 MG ORAL TABS 1 tab daily ABILIFY 15 MG ORAL TABS 386350 ARIPIPRAZOLE Inactive METOPROLOL TARTRATE 50 MG TAB 1 po bid METOPROLOL TARTRATE 50 MG TAB 988101 METOPROLOL TARTRATE Inactive TRAMADOL HCL 50 MG TABS 1-2 po TID PRN Pain TRAMADOL HCL 50 MG TABS 056771 TRAMADOL HCL Inactive PIROXICAM 20 MG CAPS 1 cap po qd PRN Pain PIROXICAM 20 MG CAPS 943486 PIROXICAM Inactive MINIPRESS 2 MG CAPS 4 cap po at night MINIPRESS 2 MG CAPS 919731 PRAZOSIN HCL Inactive MIRALAX PACK 1 po qd PRN Constipation MIRALAX PACK 267429 POLYETHYLENE GLYCOL 3350 Inactive METOPROLOL TARTRATE 25 MG ORAL TABS 1/2 tablet twice daily for heart rate and blood pressure METOPROLOL TARTRATE 25 MG ORAL TABS 851008 METOPROLOL TARTRATE Inactive VALIUM 5 MG TAB Take 1-2 tablets daily VALIUM 5 MG TAB 727560 DIAZEPAM Inactive FLAGYL 500 MG TAB 1 tablet by mouth bid FLAGYL 500 MG TAB 531819 METRONIDAZOLE Inactive DICLOFENAC POTASSIUM TABS Take 1 tablet twice a day (pt. is not sure of the dose.) DICLOFENAC POTASSIUM TABS DICLOFENAC POTASSIUM TABS Inactive ZITHROMAX Z-EARNEST 250 MG TABS 2 today and then 1 daily for 4 days ZITHROMAX Z-EARNEST 250 MG TABS 1927145 AZITHROMYCIN Inactive PREDNISONE 20 MG TABS 2 daily for 5 days then 1 daily for 5 days PREDNISONE 20 MG TABS 550539 PREDNISONE Inactive PROAIR HFA 108 (90 BASE) MCG/ACT AERS 2 puffs four times a day as needed 2015 PROAIR HFA 108 (90 BASE) MCG/ACT AERS ALBUTEROL SULFATE Inactive HYDROCODONE-ACETAMINOPHEN 5-325 MG TABS 1 to 2 four times a day as needed for pain use until can be seen by specialist HYDROCODONE- ACETAMINOPHEN 5-325 MG TABS 058181 HYDROCODONE-ACETAMINOPHEN Inactive TESSALON PERLES 100 MG CAP 1 to 2 tablets by mouth 3 times daily as needed for cough TESSALON PERLES 100 MG CAP 547899 BENZONATATE Inactive CHANTIX STARTING MONTH EARNEST 0.5 [...] Pain 2015 DICLOFENAC SODIUM 50 MG TBEC 275209 DICLOFENAC SODIUM Inactive TOPAMAX 50 MG ORAL TABS 1 tab twice daily TOPAMAX 50 MG ORAL TABS 004334 TOPIRAMATE Inactive VIIBRYD 10 MG ORAL TABS Take 1 tablet once a day VIIBRYD 10 MG ORAL TABS VILAZODONE HCL Inactive LEVOFLOXACIN 500 MG ORAL TABS po daily LEVOFLOXACIN 500 MG ORAL TABS 361951 LEVOFLOXACIN Inactive METHYLPREDNISOLONE 4 MG ORAL TABS po daily METHYLPREDNISOLONE 4 MG ORAL TABS 818371 METHYLPREDNISOLONE Inactive OXYCODONE HCL ER 10 MG ORAL T12A 1/2 tab by mouth every 4 hours prn OXYCODONE HCL ER 10 MG ORAL T12A OXYCODONE HCL Inactive FLAGYL 500 MG TAB 1 tablet by mouth bid FLAGYL 500 MG TAB 488232 METRONIDAZOLE Inactive MONISTAT 7 COMBO PACK WOODROW 100 & 2 MG-% (9GM) VAG KIT 1 applicatorful per vagina q pm x 7 MONISTAT 7 COMBO PACK WOODROW 100 & 2 MG-% (9GM) VAG KIT MICONAZOLE NITRATE Inactive BACTRIM DS 800-160 MG TABS 1 twice a day BACTRIM DS 800-160 MG TABS 980852 SULFAMETHOXAZOLE-TRIMETHOPRIM Inactive TRAMADOL HCL 50 MG TABS 1/2-1 tab TID PRN TRAMADOL HCL 50 MG TABS 539556 TRAMADOL HCL Inactive ABILIFY MAINTENA 400 MG IM SUSR 400mg injection every 26 days ABILIFCielo MAINTENA 400 MG IM SUSR ARIPIPRAZOLE Inactive KLONOPIN 1 MG ORAL TABS 1 tab po TID KLONOPIN 1 MG ORAL TABS 978063 CLONAZEPAM Inactive ADVAIR DISKUS 250-50 MCG/DOSE INH AEPB 1 puff twice a day for asthma ADVAIR DISKUS 250-50 MCG/DOSE INH AEPB FLUTICASONE- SALMETEROL Inactive BENADRYL 25 MG CAP 4 po at bedtime for insomnia BENADRYL 25 MG CAP DIPHENHYDRAMINE HCL Inactive PREDNISONE 20 MG TABS 2 daily for 5 days then 1 daily for 5 days PREDNISONE 20 MG TABS 826524 PREDNISONE Inactive HYDROCODONE-ACETAMINOPHEN 5-325 MG ORAL TABS 1 tab two times a day HYDROCODONE-ACETAMINOPHEN 5-325 MG ORAL TABS 401076 HYDROCODONE-ACETAMINOPHEN Inactive ZITHROMAX Z-EARNEST 250 MG TABS 2 today and then 1 daily for 4 days ZITHROMAX Z-EARNEST 250 MG TABS 9410021 AZITHROMYCIN Inactive GUAIFENESIN-CODEINE 100-10 MG/5ML SYRP 5ml every 4 to 6 hours as needed for cough GUAIFENESIN-CODEINE 100-10 MG/5ML SYRP 696032 GUAIFENESIN-CODEINE Inactive HALOPERIDOL 10 MG ORAL TABS 1 tab q.d HALOPERIDOL 10 MG ORAL TABS 288047 HALOPERIDOL Inactive ASPIRIN 325 MG ORAL TABS 1 tab q.d ASPIRIN 325 MG ORAL TABS 783300 ASPIRIN Inactive FLUTICASONE PROPIONATE 50 MCG/ACT SUSP 2 sprays each nostril daily before bed. FLUTICASONE PROPIONATE 50 MCG/ACT SUSP 0177448 FLUTICASONE PROPIONATE Inactive ZOFRAN 4 MG TABS 1 po q6hr PRN Nausea ZOFRAN 4 MG TABS 336750 ONDANSETRON HCL Inactive CEFDINIR 300 MG CAPS by mouth twice a day CEFDINIR 300 MG CAPS 641669 CEFDINIR Inactive PREDNISONE 20 MG TAB 2 tabs daily for 3 days, 1 tab daily for 3 days, 1/2 tab daily for 2 days PREDNISONE 20 MG TAB 013146 PREDNISONE Inactive BACTRIM DS 800-160 MG TABS 1 po BID x 7 days BACTRIM DS 800-160 MG TABS 19820521 SULFAMETHOXAZOLE-TRIMETHOPRIM Inactive DIFLUCAN 150 MG TABS 1 pill every other day x 2 doses DIFLUCAN 150 MG TABS 828211 FLUCONAZOLE Inactive BACTRIM DS 800-160 MG TABS 1 pill by mouth twice daily BACTRIM DS 800-160 MG TABS 19820521 SULFAMETHOXAZOLE-TRIMETHOPRIM Inactive KEFLEX 500 MG CAP 1 po TID x 10 days KEFLEX 500 MG CAP 320097 CEPHALEXIN Inactive Advance Directives Directive Description Start [...] % 11.0-15.0 platelet count 443 THOUSAND/UL 10*3/mm3 004-326 8067/03/01 mean platelet volume 8.2 fL 7.5-12.5 Lab [...] 369 10^3/MM^3 10*3/mm3 142-424 Lab Report: Chlamydia/GC APTIMA/[id number] - Lab chlamydia DNA probe NOT DETECTED NOT DETECTED Lab Report: Chlamydia/GC APTIMA/[id number] - Microbiology Neisseria gonorrhoeae DNA probe NOT DETECTED NOT DETECTED Lab Report: Chlamydia/GC APTIMA/[id number], Urinalysis, Complete, with Reflex ... - Lab chlamydia DNA probe NOT DETECTED NOT DETECTED Lab Report: Chlamydia/GC APTIMA/[id number], Urinalysis, Complete, with Reflex ... - Microbiology Neisseria gonorrhoeae DNA probe NOT DETECTED NOT DETECTED Lab Report: Chlamydia/GC APTIMA/[id number], Urinalysis, Complete, with Reflex ... - Urinalysis microalbumin/total urine volume 2 mg/L Units converted. See lab report for original value. microalbumin/creatinine ratio, urine 9 MCG/MG CREAT mg/L <30 Lab Report: Comp. Metabolic Panel - Chemistry sodium, serum 142 mmol/L 645-840 7738/06/08 carbon dioxide, venous blood 27.6 mmol/L 21.0-32.0 potassium, serum 4.0 mmol/L 3.5-5.2 chloride, serum 105 mmol/L 98-107 blood glucose 95 mg/dL 65-110 urea nitrogen, blood 8 mg/dL 7-18 creatinine, serum 0.75 mg/dL 0.55-1.30 alanine aminotransferase (SGPT), serum 49 U/L 12-78 aspartate aminotransferase (SGOT), serum 28 U/L 15-37 calcium, serum 9.4 mg/dL 8.5-10.1 bilirubin, serum, total 0.30 mg/dL 0.00-1.00 sodium, serum 140 mmol/L 418-989 5062/08/08 carbon dioxide, venous blood 33.7 mmol/L 21.0-32.0 [...] mg/dL Encounters Code Encounter Date Provider Facility [id number] Level 3 Est. Patient 15:28:23 CORPORATE CLAIMS EXAMINER Suzan Boo [facility] CPT-66699 Level 4 Est. Patient 10:20:54 CORPORATE CLAIMS EXAMINER Suzan Boo [facility] CPT-08739 Level 3 Est. Patient 11:47:37 CORPORATE CLAIMS EXAMINER Ahmet Carbajal MD [facility] CPT-97785 Level 3 Est. Patient 10:40:11 CORPORATE CLAIMS EXAMINER Ahmet Carbajal MD [facility] CPT-80820 Level 3 Est. Patient 15:07:06 CORPORATE CLAIMS EXAMINER Neeraj Collins MD [facility] CPT-59818 Level 4 Est. Patient 14:45:00 CORPORATE CLAIMS EXAMINER Ahmet Carbajal MD [facility] CPT-27936 Level 3 Est. Patient 13:59:59 CDT Luigi Martínez [facility] CPT-79538 Level 3 Est. Patient 18:18:53 CDT Neeraj Collins MD [facility] CPT-13725 Level 3 Est. Patient 15:50:44 CDT Vishal Hui MD [facility] CPT-12405 Level 3 Est. Patient 11:36:17 CDT Ahmet Carbajal MD [facility] CPT-09645 Level 3 Est. Patient 13:29:16 CDT Vishal Hui MD [facility] CPT-91326 Level 3 Est. Patient 14:27:52 CDT Neeraj Collins MD [facility] CPT-36822 Level 3 Est. Patient 08:56:03 CDT Luigi Martínez [facility] CPT-53656 Level 4 Est. Patient 12:11:48 CDT Fabiola Johnson [facility] CPT-94031 Level 3 New Patient 16:53:37 CDT Albert Caldera MD [facility] CPT-77320 Level 3 Est. Patient 11:25:49 CDT Renzo Thornton DO [facility] CPT-35166 Level 3 Est. Patient 15:22:01 CDT Ahmet Carbajal MD [facility] CPT-06556 Level 4 Est. Patient 09:00:51 CORPORATE CLAIMS EXAMINER Vishal Hui MD [facility] CPT-22445 Level 3 Est. Patient 11:37:33 CORPORATE CLAIMS EXAMINER Vishal Hui MD [facility] CPT-00274 Level 3 Est. Patient 08:41:09 CORPORATE CLAIMS EXAMINER Vishal Hui MD [facility] CPT-06836 Level 4 Est. Patient 10:19:35 CORPORATE CLAIMS EXAMINER Vishal Hui MD [facility] CPT-72964 Level 3 Est. Patient 13:35:45 CDT Vishal Hui MD [facility] CPT-11730 Level 4 Est. Patient 10:08:37 CDT Vishal Hui MD [facility] CPT-73724 Level 3 Est. Patient 11:22:10 CDT Vishal Hui MD [facility] CPT-01438 Level 3 Est. Patient 11:03:32 CDT Sahara Rodriguez MD [facility] CPT-46617 Level 3 Est. Patient 09:41:35 CDT Vishal Hui MD [facility] CPT-03107 Level 3 Est. Patient 12:00:41 CDT Neeraj Collins MD [facility] CPT-00195 Level 3 Est. Patient 09:16:24 CDT Vishal Hui MD [facility] CPT-37637 Level 4 Est. Patient 13:59:09 CDT Neeraj Collins MD [facility] CPT-90338 Level 3 Est. Patient 15:19:43 CDT Renzo Thornton [facility] CPT-96188 Level 3 Est. Patient 18:10:26 CDT Sahara Rodriguez MD [facility]-99708 Level 3 Est. Patient 14:49:50 CDT Vishal Hui MD [facility] CPT-48925 Level 4 Est. Patient 18:41:46 CDT Neeraj Collins MD [facility] CPT-75437 Level 4 Est. Patient 09:18:38 CORPORATE CLAIMS EXAMINER Vishal Hui MD [facility] CPT-64606 Level 3 Est. Patient 14:43:55 CORPORATE CLAIMS EXAMINER Vishal Hui MD [facility] CPT-69861 Level 3 Est. Patient 15:26:33 CORPORATE CLAIMS EXAMINER Sahara Rodriguez MD [facility] CPT-00676 Level 3 Est. Patient 10:32:14 CORPORATE CLAIMS EXAMINER Vishal Hui MD [facility] CPT-00203 Level 3 Est. Patient 15:12:52 CORPORATE CLAIMS EXAMINER Vishal Hui MD [facility] CPT-66358 Level 4 Est. Patient 09:19:27 CDT Vishal Hui MD [facility] CPT-53437 Level 3 Est. Patient 15:53:00 CDT Renzo Thornton [facility] CPT-45694 Level 3 Est. Patient 15:50:30 CDT Renzo Thornton [facility] CPT-26885 Level 3 Est. Patient 16:55:24 CDT Vishal Hui MD [facility] Procedures Code Procedure Name Date Entry Date Standard Description CPT-G0439 [facility] Annual Wellness Exam 09:30:58 CORPORATE CLAIMS EXAMINER CPT-21390 TSH - LAB USE ONLY 08:50:26 CORPORATE CLAIMS EXAMINER CPT-71403 CBC - LAB USE ONLY 08:50:26 CORPORATE CLAIMS EXAMINER CPT-30626 Venipuncture Draw Fee 08:50:26 CORPORATE CLAIMS EXAMINER CPT-12777 Abx/Therapy Injection 17:34:30 CORPORATE CLAIMS EXAMINER CPT-64677 Nexplanon Removal with Reinsertion 14:09:32 CDT CPT-J7307 Nexplanon (Implant) 14:09:32 CDT CPT-OV Office Visit 14:09:32 CDT CPT-25780 UA w micro - LAB USE ONLY 16:21:13 CDT CPT-88891 Wet Mount - LAB USE ONLY 16:21:13 CDT CPT-26728 First Vx - Ix admin for Medicare patients 14:37:47 CDT CPT-47589 Fluzone Preservative Free Intramuscular Suspension 14:37 :47 CDT CPT-14802 Abx/Therapy Injection 13:54:22 CDT CPT-44973 Abx/Therapy Injection 08:47:09 CDT CPT-48317 Abx/Therapy Injection 13:29:56 CDT CPT-97276 Abx/Therapy Injection 08:36:16 CDT CPT-90000 Wet Mount - LAB USE ONLY 17:44:58 CDT CPT-63768 UA w micro - LAB USE ONLY 17:44:58 CDT CPT-36404 CMP - LAB USE ONLY 17:44:58 CDT CPT-13548 Venipuncture Draw Fee 17:44:58 CDT CPT-27168 Cervical Min 4V - XRAY USE ONLY 09:01:40 CDT CPT-41240 Chest 2V Frontal and Lat - XRAY USE ONLY 11:06:31 CDT CPT-98497 EKG Trac and Interp - XRAY USE ONLY 11:31:43 CDT 08/26 CPT-J3420 Vitamin B12 1000mcg (Cyanocobalamin) 08:10:26 CORPORATE CLAIMS EXAMINER 04/12 CPT-86894 Abx/Therapy Injection 08:10:26 CORPORATE CLAIMS EXAMINER CPT-G0438 Initial Annual Wellness Exam 19:01:01 CORPORATE CLAIMS EXAMINER CPT-J3420 Vitamin B12 1000mcg (Cyanocobalamin) 16:57:46 CDT 08/14 CPT-10466 Recombivax HB Injection Suspension 5 MCG/0.5ML 08:37:50 CORPORATE CLAIMS EXAMINER CPT-43412 Immunization Single Admin 08:37:50 CORPORATE CLAIMS EXAMINER CPT-J3420 Vitamin B12 1000mcg (Cyanocobalamin) 08:32:16 CORPORATE CLAIMS EXAMINER 03/11 CPT-34045 Abx/Therapy Injection 08:32:16 CORPORATE CLAIMS EXAMINER CPT-95258 Chest 2V Frontal and Lat 11:46:38 CORPORATE CLAIMS EXAMINER CPT-09814 Venipuncture Draw Fee 09:12:45 CORPORATE CLAIMS EXAMINER CPT-J3420 Vitamin B12 1000mcg (Cyanocobalamin) 08:50:15 CORPORATE CLAIMS EXAMINER 02/08 CPT-43521 Abx/Therapy Injection 08:50:15 CORPORATE CLAIMS EXAMINER CPT-Cryo Cryotherapy 10:19:35 CORPORATE CLAIMS EXAMINER CPT-000 Give Appropriate Flu Vaccine 09:22:16 CDT CPT-J3420 Vitamin B12 1000mcg (Cyanocobalamin) 19:08:57 CDT 01/11 CPT-04541 Abx/Therapy Injection 19:08:57 CDT CPT-J3420 Vitamin B12 1000mcg (Cyanocobalamin) 08:19:08 CDT 12/11 CPT-75654 Abx/Therapy Injection 08:19:08 CDT CPT-J3420 Vitamin B12 1000mcg (Cyanocobalamin) 14:48:00 CDT 11/09 CPT-35391 Abx/Therapy Injection 14:47:59 CDT CPT-J3420 Vitamin B12 1000mcg (Cyanocobalamin) 08:34:04 CDT 10/09 CPT-92172 Abx/Therapy Injection 08:34:04 CDT CPT-J3420 Vitamin B12 1000mcg (Cyanocobalamin) 09:18:52 CDT 09/11 CPT-28385 Abx/Therapy Injection 09:18:52 CDT CPT-J3420 Vitamin B12 1000mcg (Cyanocobalamin) 08:35:44 CDT 09/04 CPT-11677 Abx/Therapy Injection 08:35:44 CDT CPT-11717 Immunization Single Admin 11:07:16 CDT CPT-97883 Hepatitis B adult IM 11:07:16 CDT CPT-J3420 Vitamin B12 1000mcg (Cyanocobalamin) 11:00:49 CDT 08/28 CPT-J1040 Depo Medrol 80 mg (Methyl Prednisolone Acetate) 11:00: 49 CDT CPT-72534 Abx/Therapy Injection 11:00:49 CDT CPT-J1040 Depo Medrol 80 mg (Methyl Prednisolone Acetate) 09:16: 23 CDT CPT-J3420 Vitamin B12 1000mcg (Cyanocobalamin) 08:27:05 CDT 08/20 CPT-95738 Abx/Therapy Injection 08:27:05 CDT CPT-37883 Recombivax HB Injection Suspension 5 MCG/0.5ML 10:00:41 CDT CPT-77388 Administration single or combination vaccine inc oral 10 :00:41 CDT CPT-16271 Sono transvag pelvis non OB uterus ovaries cervix 16:36: 57 CDT CPT-86901 LS spine comp w obliq 09:50:55 CORPORATE CLAIMS EXAMINER CPT-03273 Abd compl w upright 09:50:55 CORPORATE CLAIMS EXAMINER CPT-J1100 Decadron 4mg (Dexamethasone) 15:51:24 CORPORATE CLAIMS EXAMINER CPT-J1030 Depo Medrol 40 mg (Methyl Prednisolone Acetate) 15:51: 24 CORPORATE CLAIMS EXAMINER CPT-04625 Abx/Therapy Injection 15:51:24 CORPORATE CLAIMS EXAMINER CPT-J1100 Decadron 4mg (Dexamethasone) 15:26:33 CORPORATE CLAIMS EXAMINER CPT-J1030 Depo Medrol 40 mg (Methyl Prednisolone Acetate) 15:26: 33 CORPORATE CLAIMS EXAMINER CPT-43756 Sono retroperitoneal complete kidneys and bladder 17:15: 30 CDT CPT-85855 Abd compl w upright 16:09:25 CDT CPT-J1100 Decadron 8mg (Dexamethasone) 17:07:57 CDT CPT-47331 Abx/Therapy Injection 17:07:57 CDT CPT-J1100 Decadron 8mg (Dexamethasone) 16:55:24 CDT CPT-51528 Chest 2V Frontal and Lat 16:32:44 CDT
--- OUTSIDE RECORDS SUMMARY | 2016-11-04 13:56 | XMS REPORT | Clinical Summary ---
Author Author Admin, [facility] Organization [facility] Address Unknown Phone Unavailable Allergies, Adverse Reactions, [...] sites Morbid obesity 278.01 Active Juliet Kimbrough SAMPLE COLOR MAKER Morbid obesity 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 Active Juliet Kimbrough SAMPLE COLOR MAKER Dependence on other enabling machines and [...] Active Ahmet Carbajal MD Generalized anxiety disorder Taping Foreman well woman exam V72.31 Resolved Suzan Boo [...] for closed fracture ICD-823.01 Inactive Suzan Boo SAMPLE COLOR MAKER Vaginal discharge ICD-623.5 Inactive Suzan Boo SAMPLE COLOR MAKER DYSURIA ICD-788.1 Inactive Suzan Boo SAMPLE COLOR MAKER Cellulitis and abscess of breast ICD-611.0 Inactive Ahmet Carbajal MD Nondisplaced transverse fracture of shaft of left fibula, subsequent encounter for closed fracture with routine healing Inactive Suzan Boo SAMPLE COLOR MAKER Bronchitis, acute ICD-466.0 Inactive Ahmet Carbajal MD Taping Foreman well woman exam ICD-V72.31 Inactive Suzan Boo SAMPLE COLOR MAKER Bronchitis, acute with mild bronchospasm ICD-466.0 Inactive Suzan Boo SAMPLE COLOR MAKER Tracheitis ICD-464.10 Inactive Suzan Boo SAMPLE COLOR MAKER Impetigo ICD-684 Inactive Suzan Boo SAMPLE COLOR MAKER Furuncle of buttock ICD-680.5 Inactive Suzan Boo SAMPLE COLOR MAKER Vaginal irritation ICD-623.9 Inactive Suzan Boo SAMPLE COLOR MAKER Scalding pain on urination ICD-788.1 Inactive Suzan Boo SAMPLE COLOR MAKER Abdominal pain, right upper quadrant ICD-789.01 Inactive Suzan Boo SAMPLE COLOR MAKER Dark urine ICD-791.9 Inactive Suzan Boo SAMPLE COLOR MAKER Preop exam ICD-V72.84 Inactive Suzan Boo APRN Medication List Medication Instructions Start Date Stop Date Generic Name NDC Status Provider Patient Instruction METFORMIN HCL 500 MG [id number] one a day for a week, then 2 a day METFORMIN HCL 47380857980 Active Malharvey Celayagledenilson HADDAD Active NYSTATIN 367953 UNIT/GM CREA apply three times a day to yeast rash NYSTATIN 12571453358 No Longer Active Maliheh Ziglari DIRECTOR HUMAN SERVICES Active BACTRIM DS 800-160 MG TABS 1 twice a day SULFAMETHOXAZOLE-TRIMETHOPRIM 74669337024 No Longer Active Maliheh Ziglari DIRECTOR HUMAN SERVICES Active MUPIROCIN 2 % OINT apply twice a day MUPIROCIN 29394329009 Active Suzan Boo APRN Active [id number]-[id number]-[id number] 50-325-40 MG TABS 1 to 2 four times a day as needed for headache SULGPOTKLS-[id number]-[id number] 61554823598 Active Suzan Boo APRN Active METOCLOPRAMIDE HCL 10 MG TABS 1 two times as needed for nausea and headaches METOCLOPRAMIDE HCL 40710035017 Active Meena Ortiz MA Active AMITIZA 24 MCG ORAL CAPS one capsule twice daily LUBIPROSTONE 65192359896 Active Suzan Boo APRN Active MIRALAX ORAL POWD 17GMS DAILY IN WATER POLYETHYLENE GLYCOL 3350 17922469266 No Longer Active Suzan Boo APRN Active LACTULOSE 10 GM/15ML ORAL SOLN 30mL oral BID for IBS-C LACTULOSE 28537153350 No Longer Active Suzan Boo APRN Active BACTRIM DS 800-160 MG TAB Take one (1) tablet by mouth twice a day for 5 days TRIMETHOPRIM-SULFAMETHOXAZOLE 55260510028 No Longer Active Suzan Boo APRN Active MUPIROCIN 2 % OINT apply twice a day MUPIROCIN 57752164358 No Longer Active Suzan Boo APRN Active BACTRIM DS 800-160 MG TABS 1 twice a day SULFAMETHOXAZOLE-TRIMETHOPRIM 73596108904 No Longer Active Suzan Boo APRN Active DIFLUCAN 150 MG TABS 1 by mouth for yeast FLUCONAZOLE 78750273214 No Longer Active Suzan Boo APRN Active LINZESS 290 MCG ORAL CAPS 1 tab 30 min prior to first meal each day. LINACLOTIDE 24294357429 No Longer Active Sheila Calderon LPN Active AMITIZA 8 MCG ORAL CAPS 1 tab BID LUBIPROSTONE 03716879217 No Longer Active Lynda Xiao MULTIFOCAL BUTTON GENERATOR Active TESSALON PERLES 100 MG CAPS 1 three times a day as needed for cough BENZONATATE 48393931922 No Longer Active Suzan Boo APRN Active BACTRIM DS 800-160 MG TABS 1 twice a day SULFAMETHOXAZOLE-TRIMETHOPRIM 08425393309 No Longer Active Suzan Boo APRN Active DIFLUCAN 150 MG TABS 1 by mouth for yeast FLUCONAZOLE 89652666370 No Longer Active Suzan Boo APRN Active EQ NICOTINE 21 MG/24HR TRANS PT24 Apply daily to stop smoking NICOTINE 17497389243 No Longer Active Suzan Boo APRN Active PREDNISONE 10 MG TABS 2 daily for 5 days then 1 daily for 5 days PREDNISONE 26640959480 No Longer Active Suzan Boo APRN Active LEVAQUIN 500 MG TABS 1 daily for infection LEVOFLOXACIN 73774997815 No Longer Active Suzan Boo APRN Active TROPICAMIDE 0.5 % OPHTH SOLN 1 drop PRN eye spasms TROPICAMIDE 66353938005 No Longer Active Suzan Boo APRN Active PREDNISONE 20 MG TAB 1 tablet daily x 4 days PREDNISONE 63883059350 No Longer Active Suzan Boo APRN Active ACETAMINOPHEN-CODEINE 120-12 MG/5ML SOLN 5 ml by mouth every 4-6 hours if needed for cough ACETAMINOPHEN-CODEINE 90423747251 No Longer Active Suzan Boo APRN Active KEFLEX 500 MG CAP 1 po qid CEPHALEXIN 34180239248 No Longer Active Suzan Boo APRN Active FLOVENT HFA 110 MCG/ACT AERO 2 puffs inhaled b.i.d. FLUTICASONE PROPIONATE HFA 35334927139 Active Renzo Thornton DO Active RISPERDAL 4 MG ORAL TABS 1 tab at bedtime RISPERIDONE 78625370622 Active Samantha Rothman RMA Active ZOFRAN 4 MG TABS 1 po q6hr PRN Nausea ONDANSETRON HCL No Longer Active Suzan Boo APRN Active FLUTICASONE PROPIONATE 50 MCG/ACT SUSP 2 sprays each nostril daily before bed. FLUTICASONE PROPIONATE 03767058396 No Longer Active Suzan Boo APRN Active ASPIRIN 325 MG ORAL TABS 1 tab q.d ASPIRIN 05127332055 No Longer Active Suzan Boo APRN Active HALOPERIDOL 10 MG ORAL TABS 1 tab q.d HALOPERIDOL 25884233338 No Longer Active Suzan Boo APRN Active GUAIFENESIN-CODEINE 100-10 MG/5ML SYRP 5ml every 4 to 6 hours as needed for cough GUAIFENESIN-CODEINE 09738206231 No Longer Active Suzan Boo APRN Active ZITHROMAX Z-EARNEST 250 MG TABS 2 today and then 1 daily for 4 days AZITHROMYCIN 27332294690 No Longer Active Suzan Boo APRN Active CLONAZEPAM 1 MG ORAL TABS 1 twice a day and an additional 1 tablet every other day as needed for pseudoseizures or anxiety CLONAZEPAM 64896816522 Active Suzan Boo APRN Active HYDROCODONE-ACETAMINOPHEN 5-325 MG ORAL TABS 1 tab two times a day HYDROCODONE-ACETAMINOPHEN 04192295813 No Longer Active Ahmet Carbajal MD Active LAMICTAL 100 MG ORAL TABS 1 tab 2 times qd. LAMOTRIGINE 61845686554 Active Ahmet Carbajal MD Active PREDNISONE 20 MG TABS 2 daily for 5 days then 1 daily for 5 days PREDNISONE 58504926884 No Longer Active Ahmet Carbajal MD Active FLUTICASONE PROPIONATE 50 MCG/ACT SUSP 1 to 2 sprays each nostril daily for allergies FLUTICASONE PROPIONATE 53058142635 Active Tila Valenzuela Active BENADRYL 25 MG CAP 4 po at bedtime for insomnia DIPHENHYDRAMINE HCL 33479442199 No Longer Active Ahmet Carbajal MD Active ADVAIR DISKUS 250-50 MCG/DOSE INH AEPB 1 puff twice a day for asthma FLUTICASONE-SALMETEROL 51886508124 No Longer Active Ahmet Carbajal MD Active KLONOPIN 1 MG ORAL TABS 1 tab po TID CLONAZEPAM 76370969857 No Longer Active Ahmet Carbajal MD Active ABILIFY MAINTENA 400 MG IM SUSR 400mg injection every 26 days ARIPIPRAZOLE 30922891046 No Longer Active Ahmet Carbajal MD Active TRAMADOL HCL 50 MG TABS 1/2-1 tab TID PRN TRAMADOL HCL 38691583160 No Longer Active Ahmet Carbajal MD Active BACTRIM DS 800-160 MG TABS 1 twice a day SULFAMETHOXAZOLE- TRIMETHOPRIM 16925958186 No Longer Active Ahmet Carbajal MD Active PROAIR HFA 108 (90 BASE) MCG/ACT AERS 2 puffs four times a day as needed 2015 ALBUTEROL SULFATE 56048377053 Active Honey Hinton APRN Active MONISTAT 7 COMBO PACK WOODROW 100 & 2 MG-% (9GM) VAG KIT 1 applicatorful per vagina q pm x 7 MICONAZOLE NITRATE 17248064775 No Longer Active Ahmet Carbajal MD Active FLAGYL 500 MG TAB 1 tablet by mouth bid METRONIDAZOLE 58230461017 No Longer Active Ahmet Carbajal MD Active OXYCODONE HCL ER 10 MG ORAL T12A 1/2 tab by mouth every 4 hours prn OXYCODONE HCL 20948520733 No Longer Active Ahmet Carbajal MD Active METHYLPREDNISOLONE 4 MG ORAL TABS po daily METHYLPREDNISOLONE 65121062499 No Longer Active Ahmet Carbajal MD Active LEVOFLOXACIN 500 MG ORAL TABS po daily LEVOFLOXACIN 48297922472 No Longer Active Ahmet Carbajal MD Active VIIBRYD 10 MG ORAL TABS Take 1 tablet once a day VILAZODONE HCL 58084232359 No Longer Active Ahmet Carbajal MD Active TOPAMAX 50 MG ORAL TABS 1 tab twice daily TOPIRAMATE 44817092186 No Longer Active Ahmet Carbajal MD Active DICLOFENAC SODIUM 50 MG TBEC 1 tablet by mouth four times daily PRN Pain 2015 DICLOFENAC SODIUM 29144986352 No Longer Active Ahmet Carbajal MD Active ADZENYS XR-ODT 6.3 MG ORAL TBED 1 tab po daily for ADHD AMPHETAMINE 59345183648 No Longer Active Ahmet Carbajal MD Active CHANTIX 1 MG TABS 1 twice a day to help quit smoking VARENICLINE TARTRATE 79644204865 No Longer Active Dipika Burgos MD Active CHANTIX STARTING MONTH EARNEST 0.5 MG X 11 & 1 MG X 42 TABS take as directed 2015 VARENICLINE TARTRATE 04492142158 No Longer Active Dipika Burgos MD Active TESSALON PERLES 100 MG CAP 1 to 2 tablets by mouth 3 times daily as needed for cough BENZONATATE 40920980450 No Longer Active Luigi Martínez SAMPLE COLOR MAKER Active IMITREX 50 MG ORAL TABS 0.5 po x 1 PRN Headache. May repeat dose x 1 in 2 hours if needed SUMATRIPTAN SUCCINATE 46845461693 Active TAMARA Casey Active HYDROCODONE-ACETAMINOPHEN 5-325 MG TABS 1 to 2 four times a day as needed for pain use until can be seen by specialist HYDROCODONE- ACETAMINOPHEN 29764227652 No Longer Active Vishal Hui MD Active PROAIR HFA 108 (90 BASE) MCG/ACT AERS 2 puffs four times a day as needed 2015 ALBUTEROL SULFATE 07174836089 No Longer Active Vishal Hui MD Active PREDNISONE 20 MG TABS 2 daily for 5 days then 1 daily for 5 days PREDNISONE 64312863193 No Longer Active Vishal Hui MD Active ZITHROMAX Z-EARNEST 250 MG TABS 2 today and then 1 daily for 4 days AZITHROMYCIN 99822680943 No Longer Active Vishal Hui MD Active DICLOFENAC POTASSIUM TABS Take 1 tablet twice a day (pt. is not sure of the dose.) DICLOFENAC POTASSIUM TABS 43397143789 No Longer Active Vishal Hui MD Active VERAPAMIL HCL ER 120 MG ORAL CR-TABS Take 1 tablet by mouth twice a day. VERAPAMIL HCL 10719673757 Active Vishal Hui MD Active FLAGYL 500 MG TAB 1 tablet by mouth bid METRONIDAZOLE 67955473842 No Longer Active Vishal Hui MD Active VALIUM 5 MG TAB Take 1-2 tablets daily DIAZEPAM 51067063549 No Longer Active Fabiola Johnson APRN Active METOPROLOL TARTRATE 25 MG ORAL TABS 1/2 tablet twice daily for heart rate and blood pressure METOPROLOL TARTRATE 49402955631 No Longer Active Faibola Johnson APRN Active MIRALAX PACK 1 po qd PRN Constipation POLYETHYLENE GLYCOL 3350 16335981155 No Longer Active Ahmet Carbajal MD Active MINIPRESS 2 MG CAPS 4 cap po at night PRAZOSIN HCL 45758281916 No Longer Active Ahmet Carbajal MD Active PIROXICAM 20 MG CAPS 1 cap po qd PRN Pain PIROXICAM 99806128512 No Longer Active Ahmet Carbajal MD Active TRAMADOL HCL 50 MG TABS 1-2 po TID PRN Pain TRAMADOL HCL 59030951524 No Longer Active Ahmet Carbajal MD Active METOPROLOL TARTRATE 50 MG TAB 1 po bid METOPROLOL TARTRATE 97361206720 No Longer Active Ahmet Carbajal MD Active ABILIFY 15 MG ORAL TABS 1 tab daily ARIPIPRAZOLE 35100985646 No Longer Active Ahmet Carbajal MD Active PROZAC 20 MG ORAL CAPS 1 tab daily FLUOXETINE HCL 04712363681 No Longer Active Ahmet Carbajal MD Active AMBIEN 5 MG ORAL TABS 1 tab at bedtime ZOLPIDEM TARTRATE 12269673259 No Longer Active Ahmet Carbajal MD Active PREDNISONE 20 MG TAB 2 tabs daily for 4 days, 1 tab daily for 4 days, 1/2 tab daily for 4 days PREDNISONE 56466397709 No Longer Active Ahmet Carbajal MD Active KEFLEX 500 MG CAP 1 po TID x 10 days CEPHALEXIN 67774607002 No Longer Active Vishal Hui MD Active SAPHRIS 5 MG SUBL 1 po bid ASENAPINE MALEATE 35787764814 No Longer Active Luigi Martínez APRN Active LATUDA 80 MG TABS Take one by mouth daily LURASIDONE HCL 03084055408 No Longer Active Jillina Fralebron NORIEGA Active AMLODIPINE BESYLATE 5 MG TABS 1 tablet by mouth daily AMLODIPINE BESYLATE 61710735343 No Longer Active Jillina Fralebron NORIEGA Active AMITRIPTYLINE HCL 100 MG TAB one at hs AMITRIPTYLINE HCL 23983372126 No Longer Active Vishal Hui MD Active TRAZODONE HCL 100 MG TAB take 1 at bedtime TRAZODONE HCL 83665691010 No Longer Active Vishal Hui MD Active VYVANSE 40 MG CAPS 1 daily, LISDEXAMFETAMINE DIMESYLATE 92441814581 No Longer Active Vishal Hui MD Active IBUPROFEN 600 MG TAB 1 po TID PRN IBUPROFEN 20710035420 No Longer Active Vishal Hui MD Active PROZAC 20 MG CAP Take one by mouth daily FLUOXETINE HCL 63635645926 No Longer Active Vishal Hui MD Active BACTRIM DS 800-160 MG TABS 1 pill by mouth twice daily SULFAMETHOXAZOLE-TRIMETHOPRIM 88172298129 No Longer Active Sahara Rodriguez MD PhD Active DIFLUCAN 150 MG TAB 1 tablet by mouth daily FLUCONAZOLE 55135812739 No Longer Active Vishal Hui MD Active TIZANIDINE HCL 4 MG TABS 1 po q6hr PRN Muscle Spasm/Back Pain TIZANIDINE HCL 24156816864 Active TAMARA Casey Active CLINDAMYCIN HCL 150 MG CAPS 1 four times a day CLINDAMYCIN HCL 59551897373 No Longer Active Neeraj Collins MD Active KEFLEX 500 MG ORAL CAPS 1 cap QID by mouth CEPHALEXIN 19401923976 No Longer Active Neeraj Collins MD Active DIFLUCAN 150 MG TABS 1 pill every other day x 2 doses FLUCONAZOLE 25105816169 No Longer Active Sahara Rodriguez MD PhD Active MELATONIN 3 MG CAPS 2 po q hs MELATONIN 43607314081 No Longer Active Sahara Rodriguez MD PhD Active MULTIVITAMINS CAPS Take one by mouth daily MULTIPLE VITAMIN 87450386687 No Longer Active Sahara Rodriguez MD PhD Active BACTRIM DS 800-160 MG TAB 1 tab by mouth twice daily TRIMETHOPRIM-SULFAMETHOXAZOLE 49713390893 No Longer Active Sahara Rodriguez MD PhD Active [facility] PROBIOTIC ORAL CHEW 2 daily po PROBIOTIC PRODUCT 01473491992 No Longer Active Sahara Rodriguez MD PhD Active BACTRIM DS 800-160 MG TABS 1 po BID x 7 days SULFAMETHOXAZOLE-TRIMETHOPRIM 22100739657 No Longer Active Vishal Hui MD Active CHANTIX STARTING MONTH EARNEST 0.5 MG X 11 & 1 MG X 42 TABS 0.5mg daily for 3 days , then 0.5mg BID for 4 days, then 1mg BID VARENICLINE TARTRATE 82703720822 No Longer Active TAMARA Gray Active VERAPAMIL HCL CR 120 MG TAB CR 1 po bid VERAPAMIL HCL 99793091043 No Longer Active Vishal Hui MD Active METOPROLOL SUCCINATE 50 MG TB24 1 tablet by mouth daily METOPROLOL SUCCINATE 12114681160 No Longer Active Vishal Hui MD Active SAPHRIS 10 MG SUBL 1 tab po bid ASENAPINE MALEATE 92872280075 No Longer Active Vishal Hui MD Active LISINOPRIL 20 MG TABS 1 tab po qd LISINOPRIL 35327822002 No Longer Active Vsihal Hui MD Active LATUDA 20 MG TABS Take one by mouth daily LURASIDONE HCL 77995597825 No Longer Active Vishal Hui MD Active TRAZODONE HCL 50 MG TABS 1/2 tab po qd prn for anxiety TRAZODONE HCL 85584458285 No Longer Active Vishal Hui MD Active OMEPRAZOLE 20 MG TBEC 1 po q a.m. 30min prior to first food intake OMEPRAZOLE 98937434907 Active TAMARA Casey Active RANITIDINE HCL 150 MG CAPS 1 twice a day RANITIDINE HCL 79297221822 Active Lynda Xiao LPN Active LINZESS 290 MCG CAPS Take one by mouth daily LINACLOTIDE 72700044233 No Longer Active Vishal Hui MD Active SAPHRIS 5 MG SUBL 1 tab po qd ASENAPINE MALEATE 73625493109 No Longer Active Vishal Hui MD Active ZALEPLON 10 MG CAPS 1 cap po every other night ZALEPLON 74688123430 No Longer Active Vishal Hui MD Active LYRICA 50 MG CAPS 1 tab po TID PREGABALIN 98358785498 No Longer Active Vishal Hui MD Active LORATADINE 10 MG TABS 1 tab po qd LORATADINE 95376695171 No Longer Active Vishal Hui MD Active VERAPAMIL HCL ER 180 MG CR-TABS 1 tab po bid VERAPAMIL HCL 03536045904 No Longer Active Vishal Hui MD Active MIRALAX POWD 1 capfull once daily POLYETHYLENE GLYCOL 3350 19691438754 No Longer Active Vishal Hui MD Active PREDNISONE 20 MG TABS 1 tab po qd PREDNISONE 49366759602 No Longer Active Renzo Thornton DO Active LEVOFLOXACIN 500 MG TABS 1 tab po qd LEVOFLOXACIN 42912864818 No Longer Active Renzo Thornton DO Active BUSPIRONE HCL 15 MG TABS 1 tab po TID BUSPIRONE HCL 43855903548 No Longer Active Renzo Thornton DO Active BENZTROPINE MESYLATE 1 MG TABS 1 tab po qd BENZTROPINE MESYLATE 30858221705 No Longer Active Renzo Thornton DO Active ATENOLOL 25 MG TABS 1 tab po qd ATENOLOL 66195450802 No Longer Active Renzo Thornton DO Active ESCITALOPRAM OXALATE 20 MG TABS 1 tab po qd ESCITALOPRAM OXALATE 52663910671 No Longer Active Renzo Thornton DO Active ADVAIR DISKUS 250-50 MCG/DOSE AEPB 1 puff BID FLUTICASONE-SALMETEROL 83782466427 No Longer Active Renzo Thornton DO Active PREDNISONE 20 MG TAB 2 tabs daily for 3 days, 1 tab daily for 3 days, 1/2 tab daily for 2 days PREDNISONE 47429988460 No Longer Active Vishal Hui MD Active CEFDINIR 300 MG CAPS by mouth twice a day CEFDINIR 98936666136 No Longer Active Vishal Hui MD Active LANSOPRAZOLE 30 MG CPDR 1 cap po qd LANSOPRAZOLE 90048802161 No Longer Active Vishal Hui MD Active BACLOFEN 20 MG TABS 1 tab po tid BACLOFEN 60732145863 No Longer Active Vishal Hui MD Active ADVAIR DISKUS 250-50 MCG/DOSE AEPB 1 puff BID ADVAIR DISKUS 250-50 MCG/DOSE AEPB FLUTICASONE-SALMETEROL Inactive ESCITALOPRAM OXALATE 20 MG TABS 1 tab po qd ESCITALOPRAM OXALATE 20 MG TABS 941912 ESCITALOPRAM OXALATE Inactive ATENOLOL 25 MG TABS 1 tab po qd ATENOLOL 25 MG TABS 132655 ATENOLOL Inactive BENZTROPINE MESYLATE 1 MG TABS 1 tab po qd BENZTROPINE MESYLATE 1 MG TABS 912271 BENZTROPINE MESYLATE Inactive BUSPIRONE HCL 15 MG TABS 1 tab po TID BUSPIRONE HCL 15 MG TABS 322207 BUSPIRONE HCL Inactive LEVOFLOXACIN 500 MG TABS 1 tab po qd LEVOFLOXACIN 500 MG TABS 913077 LEVOFLOXACIN Inactive PREDNISONE 20 MG TABS 1 tab po qd PREDNISONE 20 MG TABS 106097 PREDNISONE Inactive MIRALAX POWD 1 capfull once daily MIRALAX POWD 518853 POLYETHYLENE GLYCOL 3350 Inactive VERAPAMIL HCL ER 180 MG CR-TABS 1 tab po bid VERAPAMIL HCL ER 180 MG CR-TABS VERAPAMIL HCL Inactive LORATADINE 10 MG TABS 1 tab po qd LORATADINE 10 MG TABS 023582 LORATADINE Inactive LYRICA 50 MG CAPS 1 tab po TID LYRICA 50 MG CAPS PREGABALIN Inactive ZALEPLON 10 MG CAPS 1 cap po every other night ZALEPLON 10 MG CAPS 643651 ZALEPLON Inactive SAPHRIS 5 MG SUBL 1 tab po qd SAPHRIS 5 MG SUBL ASENAPINE MALEATE Inactive TRAZODONE HCL 50 MG TABS 1/2 tab po qd prn for anxiety TRAZODONE HCL 50 MG TABS 773897 TRAZODONE HCL Inactive LATUDA 20 MG TABS Take one by mouth daily LATUDA 20 MG TABS LURASIDONE HCL Inactive LISINOPRIL 20 MG TABS 1 tab po qd LISINOPRIL 20 MG TABS 154424 LISINOPRIL Inactive SAPHRIS 10 MG SUBL 1 [...] twice daily BACTRIM DS 800-160 MG TAB 969879 TRIMETHOPRIM-SULFAMETHOXAZOLE Inactive MULTIVITAMINS CAPS Take one by mouth daily MULTIVITAMINS CAPS MULTIPLE VITAMIN Inactive MELATONIN 3 MG CAPS 2 po q hs MELATONIN 3 MG CAPS 062610 MELATONIN Inactive KEFLEX 500 MG ORAL CAPS 1 cap QID by mouth KEFLEX 500 MG ORAL CAPS 683995 CEPHALEXIN Inactive CLINDAMYCIN HCL 150 MG CAPS 1 four times a day CLINDAMYCIN HCL 150 MG CAPS 284590 CLINDAMYCIN HCL Inactive DIFLUCAN 150 MG TAB 1 tablet by mouth daily DIFLUCAN 150 MG TAB 334169 FLUCONAZOLE Inactive PROZAC 20 MG CAP Take one by mouth daily PROZAC 20 MG CAP 280449 FLUOXETINE HCL Inactive IBUPROFEN 600 MG TAB 1 po TID PRN IBUPROFEN 600 MG TAB 330954 IBUPROFEN Inactive VYVANSE 40 MG CAPS 1 daily, VYVANSE 40 MG CAPS LISDEXAMFETAMINE DIMESYLATE Inactive TRAZODONE HCL 100 MG TAB take 1 at bedtime TRAZODONE HCL 100 MG TAB 991765 TRAZODONE HCL Inactive AMITRIPTYLINE HCL 100 MG TAB one at hs AMITRIPTYLINE HCL 100 MG TAB 466024 AMITRIPTYLINE HCL Inactive AMLODIPINE BESYLATE 5 MG TABS 1 tablet by mouth daily AMLODIPINE BESYLATE 5 MG TABS 115381 AMLODIPINE BESYLATE Inactive LATUDA 80 MG TABS Take one by mouth daily LATUDA 80 MG TABS LURASIDONE HCL Inactive SAPHRIS 5 MG SUBL 1 po bid SAPHRIS 5 MG SUBL ASENAPINE MALEATE Inactive PREDNISONE 20 MG TAB 2 tabs daily for 4 days, 1 tab daily for 4 days, 1/2 tab daily for 4 days PREDNISONE 20 MG TAB 925660 PREDNISONE Inactive AMBIEN 5 MG ORAL TABS 1 tab at bedtime AMBIEN 5 MG ORAL TABS 543083 ZOLPIDEM TARTRATE Inactive PROZAC 20 MG ORAL CAPS 1 tab daily PROZAC 20 MG ORAL CAPS 774477 FLUOXETINE HCL Inactive ABILIFY 15 MG ORAL TABS 1 tab daily ABILIFY 15 MG ORAL TABS 435040 ARIPIPRAZOLE Inactive METOPROLOL TARTRATE 50 MG TAB 1 po bid METOPROLOL TARTRATE 50 MG TAB 622729 METOPROLOL TARTRATE Inactive TRAMADOL HCL 50 MG TABS 1-2 po TID PRN Pain TRAMADOL HCL 50 MG TABS 318947 TRAMADOL HCL Inactive PIROXICAM 20 MG CAPS 1 cap po qd PRN Pain PIROXICAM 20 MG CAPS 967115 PIROXICAM Inactive MINIPRESS 2 MG CAPS 4 cap po at night MINIPRESS 2 MG CAPS 249507 PRAZOSIN HCL Inactive MIRALAX PACK 1 po qd PRN Constipation MIRALAX PACK 603570 POLYETHYLENE GLYCOL 3350 Inactive METOPROLOL TARTRATE 25 MG ORAL TABS 1/2 tablet twice daily for heart rate and blood pressure METOPROLOL TARTRATE 25 MG ORAL TABS 633874 METOPROLOL TARTRATE Inactive VALIUM 5 MG TAB Take 1-2 tablets daily VALIUM 5 MG TAB 280912 DIAZEPAM Inactive FLAGYL 500 MG TAB 1 tablet by mouth bid FLAGYL 500 MG TAB 729001 METRONIDAZOLE Inactive DICLOFENAC POTASSIUM TABS Take 1 tablet twice a day (pt. is not sure of the dose.) DICLOFENAC POTASSIUM TABS DICLOFENAC POTASSIUM TABS Inactive ZITHROMAX Z-EARNEST 250 MG TABS 2 today and then 1 daily for 4 days ZITHROMAX Z-EARNEST 250 MG TABS 3386049 AZITHROMYCIN Inactive PREDNISONE 20 MG TABS 2 daily for 5 days then 1 daily for 5 days PREDNISONE 20 MG TABS 462846 PREDNISONE Inactive PROAIR HFA 108 (90 BASE) MCG/ACT AERS 2 puffs four times a day as needed 2015 PROAIR HFA 108 (90 BASE) MCG/ACT AERS ALBUTEROL SULFATE Inactive HYDROCODONE-ACETAMINOPHEN 5-325 MG TABS 1 to 2 four times a day as needed for pain use until can be seen by specialist HYDROCODONE- ACETAMINOPHEN 5-325 MG TABS 460014 HYDROCODONE-ACETAMINOPHEN Inactive TESSALON PERLES 100 MG CAP 1 to 2 tablets by mouth 3 times daily as needed for cough TESSALON PERLES 100 MG CAP 812967 BENZONATATE Inactive CHANTIX STARTING MONTH EARNEST 0.5 [...] Pain 2015 DICLOFENAC SODIUM 50 MG TBEC 077433 DICLOFENAC SODIUM Inactive TOPAMAX 50 MG ORAL TABS 1 tab twice daily TOPAMAX 50 MG ORAL TABS 959295 TOPIRAMATE Inactive VIIBRYD 10 MG ORAL TABS Take 1 tablet once a day VIIBRYD 10 MG ORAL TABS VILAZODONE HCL Inactive LEVOFLOXACIN 500 MG ORAL TABS po daily LEVOFLOXACIN 500 MG ORAL TABS 336173 LEVOFLOXACIN Inactive METHYLPREDNISOLONE 4 MG ORAL TABS po daily METHYLPREDNISOLONE 4 MG ORAL TABS 662397 METHYLPREDNISOLONE Inactive OXYCODONE HCL ER 10 MG ORAL T12A 1/2 tab by mouth every 4 hours prn OXYCODONE HCL ER 10 MG ORAL T12A OXYCODONE HCL Inactive FLAGYL 500 MG TAB 1 tablet by mouth bid FLAGYL 500 MG TAB 002642 METRONIDAZOLE Inactive MONISTAT 7 COMBO PACK WOODROW 100 & 2 MG-% (9GM) VAG KIT 1 applicatorful per vagina q pm x 7 MONISTAT 7 COMBO PACK WOODROW 100 & 2 MG-% (9GM) VAG KIT MICONAZOLE NITRATE Inactive BACTRIM DS 800-160 MG TABS 1 twice a day BACTRIM DS 800-160 MG TABS 338258 SULFAMETHOXAZOLE-TRIMETHOPRIM Inactive TRAMADOL HCL 50 MG TABS 1/2-1 tab TID PRN TRAMADOL HCL 50 MG TABS 764395 TRAMADOL HCL Inactive ABILIFY MAINTENA 400 MG IM SUSR 400mg injection every 26 days ABILIFY MAINTENA 400 MG IM SUSR ARIPIPRAZOLE Inactive KLONOPIN 1 MG ORAL TABS 1 tab po TID KLONOPIN 1 MG ORAL TABS 945608 CLONAZEPAM Inactive ADVAIR DISKUS 250-50 MCG/DOSE INH AEPB 1 puff twice a day for asthma ADVAIR DISKUS 250-50 MCG/DOSE INH AEPB FLUTICASONE- SALMETEROL Inactive BENADRYL 25 MG CAP 4 po at bedtime for insomnia BENADRYL 25 MG CAP DIPHENHYDRAMINE HCL Inactive PREDNISONE 20 MG TABS 2 daily for 5 days then 1 daily for 5 days PREDNISONE 20 MG TABS 412373 PREDNISONE Inactive HYDROCODONE-ACETAMINOPHEN 5-325 MG ORAL TABS 1 tab two times a day HYDROCODONE-ACETAMINOPHEN 5-325 MG ORAL TABS [id number] HYDROCODONE-ACETAMINOPHEN Inactive ZITHROMAX Z-EARNEST 250 MG TABS 2 today and then 1 daily for 4 days ZITHROMAX Z-EARNEST 250 MG TABS [id number] AZITHROMYCIN Inactive GUAIFENESIN-CODEINE 100-10 MG/5ML SYRP 5ml every 4 to 6 hours as needed for cough GUAIFENESIN-CODEINE 100-10 MG/5ML SYRP [id number] GUAIFENESIN-CODEINE Inactive HALOPERIDOL 10 MG ORAL TABS 1 tab q.d HALOPERIDOL 10 MG ORAL TABS [id number] HALOPERIDOL Inactive ASPIRIN 325 MG ORAL TABS 1 tab q.d ASPIRIN 325 MG ORAL TABS [id number] ASPIRIN Inactive FLUTICASONE PROPIONATE 50 MCG/ACT SUSP 2 sprays each nostril daily before bed. FLUTICASONE PROPIONATE 50 MCG/ACT SUSP 6338110 FLUTICASONE PROPIONATE Inactive ZOFRAN 4 MG TABS 1 po q6hr PRN Nausea ZOFRAN 4 MG TABS 772246 ONDANSETRON HCL Inactive KEFLEX 500 MG CAP 1 po qid KEFLEX 500 MG CAP 097462 CEPHALEXIN Inactive ACETAMINOPHEN-CODEINE 120-12 MG/5ML SOLN 5 ml by mouth every 4-6 hours if needed for cough ACETAMINOPHEN-CODEINE 120-12 MG/5ML SOLN 326905 ACETAMINOPHEN-CODEINE Inactive PREDNISONE 20 MG TAB 1 tablet daily x 4 days PREDNISONE 20 MG TAB 721973 PREDNISONE Inactive TROPICAMIDE 0.5 % OPHTH SOLN 1 drop PRN eye spasms TROPICAMIDE 0.5 % OPHTH SOLN 907339 TROPICAMIDE Inactive LEVAQUIN 500 MG TABS 1 daily for infection LEVAQUIN 500 MG TABS 978235 LEVOFLOXACIN Inactive PREDNISONE 10 MG TABS 2 daily for 5 days then 1 daily for 5 days PREDNISONE 10 MG TABS 249671 PREDNISONE Inactive EQ NICOTINE 21 MG/24HR TRANS [...] mouth for yeast DIFLUCAN 150 MG TABS 895695 FLUCONAZOLE Inactive BACTRIM DS 800-160 MG TABS 1 twice a day BACTRIM DS 800-160 MG TABS 19820521 SULFAMETHOXAZOLE-TRIMETHOPRIM Inactive MUPIROCIN 2 % OINT apply twice a day MUPIROCIN 2 % OINT 766136 MUPIROCIN Inactive BACTRIM DS 800-160 MG TAB Take one (1) tablet by mouth twice a day for 5 days BACTRIM DS 800-160 MG TAB 19820521 TRIMETHOPRIM- SULFAMETHOXAZOLE Inactive LACTULOSE 10 GM/15ML ORAL SOLN 30mL oral BID for IBS-C LACTULOSE 10 GM/15ML ORAL SOLN 988981 LACTULOSE Inactive MIRALAX ORAL POWD 17GMS DAILY IN WATER MIRALAX ORAL POWD 834588 POLYETHYLENE GLYCOL 3350 Inactive BACTRIM DS 800-160 MG TABS 1 twice a day BACTRIM DS 800-160 MG TABS 19820521 SULFAMETHOXAZOLE-TRIMETHOPRIM Inactive NYSTATIN 399812 UNIT/GM CREA apply three times a day to yeast rash NYSTATIN 395974 UNIT/GM CREA 692036 NYSTATIN Inactive CEFDINIR 300 MG CAPS by mouth twice a day CEFDINIR 300 MG CAPS 649565 CEFDINIR Inactive PREDNISONE 20 MG TAB 2 tabs daily for 3 days, 1 tab daily for 3 days, 1/2 tab daily for 2 days PREDNISONE 20 MG TAB 466299 PREDNISONE Inactive BACTRIM DS 800-160 MG TABS [...] x 10 days KEFLEX 500 MG CAP 862942 CEPHALEXIN Inactive Advance Directives Directive Description Start [...] % 11.0-15.0 platelet count 443 THOUSAND/UL 10*3/mm3 845-000 7649/03/01 mean platelet volume 8.2 fL 7.5-12.5 leukocyte [...] % 11.0-15.0 platelet count 349 THOUSAND/UL 10*3/mm3 871-579 6421/04/12 mean platelet volume 8.4 fL 7.5-12.5 Lab Report: CBC W/DIFF, Comp. Metabolic Panel, HGBA1C, Magnesium - Chemistry sodium, serum 141 mmol/L 962-786 4742/07/24 carbon dioxide, venous blood 27.8 mmol/L 21.0-32.0 [...] 369 10^3/MM^3 10*3/mm3 142-424 Lab Report: Chlamydia/GC APTIMA/26504 - Lab chlamydia DNA probe NOT DETECTED NOT DETECTED Lab Report: Chlamydia/GC APTIMA/41451 - Microbiology Neisseria gonorrhoeae DNA probe NOT DETECTED NOT DETECTED Lab Report: Chlamydia/GC APTIMA/48739, Urinalysis, Complete, with Reflex ... - Lab chlamydia DNA probe NOT DETECTED NOT DETECTED Lab Report: Chlamydia/GC APTIMA/15324, Urinalysis, Complete, with Reflex ... - Microbiology Neisseria gonorrhoeae DNA probe NOT DETECTED NOT DETECTED Lab Report: Chlamydia/GC APTIMA/35017, Urinalysis, Complete, with Reflex ... - Urinalysis microalbumin/total urine volume 2 mg/L Units converted. See lab report for original value. microalbumin/creatinine ratio, urine 9 MCG/MG CREAT mg/L <30 Lab Report: Comp. Metabolic Panel - Chemistry sodium, serum 140 mmol/L 787-468 4165/06/28 carbon dioxide, venous blood 23.8 mmol/L 21.0-32.0 [...] negative Encounters Code Encounter Date Provider Facility CPT-48030 Level 5 Est. Patient 12:01:37 CDT Maude Miranda [facility] CPT-88754 Level 3 Est. [facility] 11:36:47 [facility] Level 3 Est. Patient 10:53:17 [facility]-468[facility] Level 3 Est. Patient 11:08:35 [facility] CPT-46328 Level 3 Est. Patient 15:55:20 CDT Suzan Boo [facility] CPT-25081 Level 4 Est. Patient 10:49:34 CDT Suzan Boo [facility] CPT-43919 Level 3 Est. Patient 10:00:25 [facility] CPT-73312 Level 3 Est. Patient 10:29:30 CDT Suzan Boo [facility] CPT-69992 Level 3 Est. Patient 11:04:38 CDT Renzo Thornton [facility] CPT-69792 Level 3 Est. Patient 11:15:58 CLINIC CLERK Renzo Thornton [facility] CPT-77426 Level 3 Est. Patient 15:28:23 CLINIC CLERK Suzan Boo [facility] CPT-00368 Level 4 Est. Patient 10:20:54 CLINIC CLERK Suzan Boo [facility] CPT-60605 Level 3 Est. Patient 11:47:37 CLINIC CLERK Ahmet Carbajal MD [facility] CPT-18097 Level 3 Est. Patient 10:40:11 CLINIC CLERK Ahmet Carbajal MD [facility] CPT-05334 Level 3 Est. Patient 15:07:06 CLINIC CLERK Neeraj Collins MD [facility] CPT-50846 Level 4 Est. Patient 14:45:00 CLINIC CLERK Ahmet Carbajal MD [facility] CPT-78653 Level 3 Est. Patient 13:59:59 CDT Luigi Martínez [facility] CPT-25131 Level 3 Est. Patient 18:18:53 CDT Neeraj Collins MD [facility] CPT-81719 Level 3 Est. Patient 15:50:44 CDT Vishal Hui MD [facility] CPT-53619 Level 3 Est. Patient 11:36:17 CDT Ahmet Carbajal MD [facility] CPT-39741 Level 3 Est. Patient 13:29:16 CDT Vishal Hui MD [facility] CPT-67734 Level 3 Est. Patient 14:27:52 CDT Neeraj Collins MD [facility] CPT-69968 Level 3 Est. Patient 08:56:03 CDT Luigi Martínez [facility] CPT-41573 Level 4 Est. Patient 12:11:48 CDT Fabiola Johnson [facility] CPT-20733 Level 3 New Patient 16:53:37 CDT Albert Caldera MD [facility] CPT-45337 Level 3 Est. Patient 11:25:49 CDT Renzo Thornton DO [facility] CPT-68121 Level 3 Est. Patient 15:22:01 CDT Ahmet Carbajal MD [facility] CPT-84615 Level 4 Est. Patient 09:00:51 CLINIC CLERK Vishal Hui MD [facility] CPT-84431 Level 3 Est. Patient 11:37:33 CLINIC CLERK Vishal Hui MD [facility] CPT-75221 Level 3 Est. Patient 08:41:09 CLINIC CLERK Vishal Hui MD [facility] CPT-72490 Level 4 Est. Patient 10:19:35 CLINIC CLERK Vishal Hui MD [facility] CPT-91400 Level 3 Est. Patient 13:35:45 CDT Vishal Hui MD [facility] CPT-24432 Level 4 Est. Patient 10:08:37 CDT Vishal Hui MD [facility] CPT-36449 Level 3 Est. Patient 11:22:10 CDT Vishal Hui MD [facility] CPT-38758 Level 3 Est. Patient 11:03:32 CDT Sahara Rodriguez MD, PhD [facility] CPT-35155 Level 3 Est. Patient 09:41:35 CDT Vishal Hui MD [facility] CPT-00188 Level 3 Est. Patient 12:00:41 CDT Neeraj Collins MD [facility] CPT-87065 Level 3 Est. Patient 09:16:24 CDT Vishal Hui MD [facility] CPT-50132 Level 4 Est. Patient 13:59:09 CDT Neeraj Collins MD [facility] CPT-98914 Level 3 Est. Patient 15:19:43 CDT Renzo Thornton DO [facility] CPT-01560 Level 3 Est. Patient 18:10:26 CDT Sahara Rodriguez MD [facility]-79004 Level 3 Est. Patient 14:49:50 CDT Vishal Hui MD [facility] CPT-94941 Level 4 Est. Patient 18:41:46 CDT Neeraj Collins MD [facility] CPT-90985 Level 4 Est. Patient 09:18:38 CLINIC CLERK Vishal Hui MD [facility] CPT-34621 Level 3 Est. Patient 14:43:55 CLINIC CLERK Vishal Hui MD [facility] CPT-10975 Level 3 Est. Patient 15:26:33 CLINIC CLERK Sahara Rodriguez MD PhD [facility] CPT-98560 Level 3 Est. Patient 10:32:14 CLINIC CLERK Vishal Hui MD [facility] CPT-00268 Level 3 Est. Patient 15:12:52 CLINIC CLERK Vishal Hui MD [facility] CPT-06043 Level 4 Est. Patient 09:19:27 CDT Vishal Hui MD [facility] CPT-44489 Level 3 Est. Patient 15:53:00 CDT Renzo Thornton DO [facility] CPT-42800 Level 3 Est. Patient 15:50:30 CDT Renzo Thornton DO [facility] CPT-86407 Level 3 Est. Patient 16:55:24 CDT Vishal Hui MD [facility] Procedures Code Procedure Name Date Entry Date Standard Description CPT-42999 UA Dip Auto (Floor Use Only) 11:36:47 CDT CPT-70064 Venipuncture Draw Fee 10:53:17 CDT CPT-33560 EKG Trac and Interp - XRAY USE ONLY 15:59:30 CDT 09/13 CPT-24734 Chest 1V Frontal - XRAY USE ONLY 15:59:30 CDT CPT-97243 Venipuncture Draw Fee 15:44:02 CDT CPT-08899 Venipuncture Draw Fee 08:41:12 CDT CPT-01928 Abd compl w upright - XRAY USE ONLY 10:27:59 CDT 06/28 CPT-61724 Smoking Cessation counseling 11:15:58 CLINIC CLERK CPT-G0439 [facility] Annual Wellness Exam 09:30:58 CLINIC CLERK CPT-37561 TSH - LAB USE ONLY 08:50:26 CLINIC CLERK CPT-48873 CBC - LAB USE ONLY 08:50:26 CLINIC CLERK CPT-40467 Venipuncture Draw Fee 08:50:26 CLINIC CLERK CPT-34132 Abx/Therapy Injection 17:34:30 CLINIC CLERK CPT-57240 Nexplanon Removal with Reinsertion 14:09:32 CDT CPT-J7307 Nexplanon (Implant) 14:09:32 CDT CPT-OV Office Visit 14:09:32 CDT CPT-73220 UA w micro - LAB USE ONLY 16:21:13 CDT CPT-09149 Wet Mount - LAB USE ONLY 16:21:13 CDT CPT-79701 First Vx - Ix admin for Medicare patients 14:37:47 CDT CPT-08349 Fluzone Preservative Free Intramuscular Suspension 14:37 :47 CDT CPT-52205 Abx/Therapy Injection 13:54:22 CDT CPT-57373 Abx/Therapy Injection 08:47:09 CDT CPT-16557 Abx/Therapy Injection 13:29:56 CDT CPT-10977 Abx/Therapy Injection 08:36:16 CDT CPT-18497 Wet Mount - LAB USE ONLY 17:44:58 CDT CPT-48487 UA w micro - LAB USE ONLY 17:44:58 CDT CPT-39993 CMP - LAB USE ONLY 17:44:58 CDT CPT-73430 Venipuncture Draw Fee 17:44:58 CDT CPT-72204 Cervical Min 4V - XRAY USE ONLY 09:01:40 CDT CPT-43152 Chest 2V Frontal and Lat - XRAY USE ONLY 11:06:31 CDT CPT-64716 EKG Trac and Interp - XRAY USE ONLY 11:31:43 CDT 08/26 CPT-J3420 Vitamin B12 1000mcg (Cyanocobalamin) 08:10:26 CLINIC CLERK 04/12 CPT-29975 Abx/Therapy Injection 08:10:26 CLINIC CLERK CPT-G0438 Initial Annual Wellness Exam 19:01:01 CLINIC CLERK CPT-J3420 Vitamin B12 1000mcg (Cyanocobalamin) 16:57:46 CDT 08/14 CPT-08231 Recombivax HB Injection Suspension 5 MCG/0.5ML 08:37:50 CLINIC CLERK CPT-56074 Immunization Single Admin 08:37:50 CLINIC CLERK CPT-J3420 Vitamin B12 1000mcg (Cyanocobalamin) 08:32:16 CLINIC CLERK 03/11 CPT-13295 Abx/Therapy Injection 08:32:16 CLINIC CLERK CPT-44106 Chest 2V Frontal and Lat 11:46:38 CLINIC CLERK CPT-60784 Venipuncture Draw Fee 09:12:45 CLINIC CLERK CPT-J3420 Vitamin B12 1000mcg (Cyanocobalamin) 08:50:15 CLINIC CLERK 02/08 CPT-04027 Abx/Therapy Injection 08:50:15 CLINIC CLERK CPT-Cryo Cryotherapy 10:19:35 CLINIC CLERK CPT-000 Give Appropriate Flu Vaccine 09:22:16 CDT CPT-J3420 Vitamin B12 1000mcg (Cyanocobalamin) 19:08:57 CDT 01/11 CPT-31038 Abx/Therapy Injection 19:08:57 CDT CPT-J3420 Vitamin B12 1000mcg (Cyanocobalamin) 08:19:08 CDT 12/11 CPT-63424 Abx/Therapy Injection 08:19:08 CDT CPT-J3420 Vitamin B12 1000mcg (Cyanocobalamin) 14:48:00 CDT 11/09 CPT-19710 Abx/Therapy Injection 14:47:59 CDT CPT-J3420 Vitamin B12 1000mcg (Cyanocobalamin) 08:34:04 CDT 10/09 CPT-58190 Abx/Therapy Injection 08:34:04 CDT CPT-J3420 Vitamin B12 1000mcg (Cyanocobalamin) 09:18:52 CDT 09/11 CPT-45430 Abx/Therapy Injection 09:18:52 CDT CPT-J3420 Vitamin B12 1000mcg (Cyanocobalamin) 08:35:44 CDT 09/04 CPT-39028 Abx/Therapy Injection 08:35:44 CDT CPT-64493 Immunization Single Admin 11:07:16 CDT CPT-26892 Hepatitis B adult IM 11:07:16 CDT CPT-J3420 Vitamin B12 1000mcg (Cyanocobalamin) 11:00:49 CDT 08/28 CPT-J1040 Depo Medrol 80 mg (Methyl Prednisolone Acetate) 11:00: 49 CDT CPT-05090 Abx/Therapy Injection 11:00:49 CDT CPT-J1040 Depo Medrol 80 mg (Methyl Prednisolone Acetate) 09:16: 23 CDT CPT-J3420 Vitamin B12 1000mcg (Cyanocobalamin) 08:27:05 CDT 08/20 CPT-88116 Abx/Therapy Injection 08:27:05 CDT CPT-93856 Recombivax HB Injection Suspension 5 MCG/0.5ML 10:00:41 CDT CPT-89984 Administration single or combination vaccine inc oral 10 :00:41 CDT CPT-11628 Sono transvag pelvis non OB uterus ovaries cervix 16:36: 57 CDT CPT-02918 LS spine comp w obliq 09:50:55 CLINIC CLERK CPT-20921 Abd compl w upright 09:50:55 CLINIC CLERK CPT-J1100 Decadron 4mg (Dexamethasone) 15:51:24 CLINIC CLERK CPT-J1030 Depo Medrol 40 mg (Methyl Prednisolone Acetate) 15:51: 24 CLINIC CLERK CPT-95864 Abx/Therapy Injection 15:51:24 CLINIC CLERK CPT-J1100 Decadron 4mg (Dexamethasone) 15:26:33 CLINIC CLERK CPT-J1030 Depo Medrol 40 mg (Methyl Prednisolone Acetate) 15:26: 33 CLINIC CLERK CPT-79851 Sono retroperitoneal complete kidneys and bladder 17:15: 30 CDT CPT-99974 Abd compl w upright 16:09:25 CDT CPT-J1100 Decadron 8mg (Dexamethasone) 17:07:57 CDT CPT-08176 Abx/Therapy Injection 17:07:57 CDT CPT-J1100 Decadron 8mg (Dexamethasone) 16:55:24 CDT CPT-89865 Chest 2V Frontal and Lat 16:32:44 CDT
--- OUTSIDE RECORDS SUMMARY | 2016-11-04 13:57 | XMS REPORT ---
Author Author [facility] Medical Staff Organization [facility] Address [address] [place], [place] [address] Phone [phone] Care Team Providers Care Discount Clerk Name Role Phone DENICE OCHOA MD, PP [phone] Summary purpose TRANSITION OF CARE AUTO GENERATION [...] Relevant diagnostic tests and/or laboratory data RESULTS Drug Screen In House [id number]:38:00 Result Normal Range Units Amphetamine Negative Negative Barbiturates Negative Negative Benzodiazepines AB Positive Negative Cannabinoids Negative Negative *Triage TOXis a medical drug screen to be used only for assessment and treatment of patients. This drug screen cannot be used for employment or legal purposes. Cocaine Negative Negative Mamp/MDMA Negative Negative Methadone Negative Negative Opiates Negative Negative Phencyclidine Negative Negative Tricyclic Antidepressants Negative Negative Therapeutic Drug Monitoring :14:00 Result Normal Range Units Acetaminophen L 0.0 10.0-30.0 ug/ml Salicylate L 1.3 2.0-20.0 mg/dl Chemistry :14:00 Result Normal Range Units Sodium 140 134-145 mEq/l Potassium 3.9 3.5-5.1 mEq/l Chloride H 108 98-107 mEq/l CO2 22.5 22-28 mEq/l Glucose 95 70-105 mg/dl BUN 11 7-18 mg/dl Creatinine 0.67 0.6-1.0 mg/dl Calcium 8.4 8.4-10.2 mg/dl TP - Total Protein 6.5 6.0-8.3 g/dl Albumin L 3.4 3.5-5 g/dl Bilirubin - Total 0.2 0.1-1.0 mg/dl AST 30 10-42 IU/L ALT 59 12-65 IU/L ALP H 83 25-72 IU/L Osmolality L 278.6 280-300 mOsm/L Albumin/Globulin Ratio 1.1 0-8 Anion GAP 9.5 8-16 BUN/Creatinine Ratio 16.4 10-20 Estimated GFR 105 >=60 mL/min/1.7 Hematology [id number]:14:00 Result Normal Range Units WBC 7.8 4.8-10.8 103/uL RBC 4.4 4.2-5.4 106/uL HGB 13.7 12.0-16.0 g/dl HCT 40.4 36.9-47.0 % MCV 91.6 81-99 FL MCH H 31.1 27-31 pg MCHC 33.9 33-37 g/dl RDW 11.9 11.5-15.5 % PLT 311 130-400 103/uL MPV 10.0 7.3-10.4 FL Special Chemistry [id number]:14:00 Result Normal Range Units ETOH < 3 0-5 mg/dl Radiology Results [id number]:14:00 Result Normal Range Units MPV 10.0 7.3-10.4 FL History of procedures No procedures recorded for this patient visit. Functional status Functional Status Finding Observation Time Abdomen Appearance obese 54-10-148045:43 Abdomen non-tender 53-73-116909:43 Vick no 38-32-563085:43 Urination normal 16-89-176242:43 Quality sym/unlabored 26-46-941838:43 Cough absent 58-86-264382:43 Secretions no 20-04-148811:43 Airway natural 96-96-233184:43 Chest Tube no :43 Oxygen no : Temp >100.4 no : Temp <96.8 no : Chills with rigors no : HR > 90bpm no : Respirations > 20 no : Systolic <90 no : headache stiff neck no : WBC > 77774 no : WBC < 4000 no :05 Nursing Note Care car here et pt given discharge instructions et verbalized an understanding of instructions given. : Vital signs Type Value Date Respiration Rate 20breaths per minute : Pulse 96beats per minute : Oxygen Saturation 99% : BP Systolic 119mmHg : BP Diastolic 78mmHg : Temperature 98.1F :03 Social history Type Value Smoking Status CURRENT EVERY DAY SMOKER Treatment Plan No treatment plan text is available for this visit. Hospital discharge instructions Dismissal Condition good Disposition on DC home DC Inst/Educ Give yes Med/Side Effects Rev yes Flu Vac 2014
--- OUTSIDE RECORDS SUMMARY | 2016-11-04 13:59 | XMS REPORT ---
Author Author [facility] Medical Staff Organization [facility] [employer] Address [address] [place], [place] [address] Phone [phone] Summary purpose TRANSITION OF CARE AUTO GENERATION [...] tests and/or laboratory data RESULTS Radiology Results [id number]:02:00 MRI C-SPINE W/O CONT PACs Image DATE OF EXAM: Jun 03 2015 MRI 0218-MRI C SPINE WO CONTRAST : RADIOLOGY REPORT DATE OF SERVICE: 06/03/15 HISTORY: Neck pain radiating to head, bilateral arm tingling. MAGNETIC RESONANCE IMAGING CERVICAL SPINE WITHOUT CONTRAST 0908 HOURS Multiplanar multisequence images are evaluated. The craniocervical junction appears normal. The spinal cord shows no signal alteration. Normal curvature of the cervical spine is noted. The intervertebral spaces are well preserved. No bony injury is defined. No disc herniation, neural foraminal encroachment, or spinal canal stenosis is demonstrated. Very slight disc osteophyte complex presentation C6-C7 level. This causes minimal thecal effacement. No spinal canal stenosis is seen. IMPRESSION: Normal magnetic resonance imaging cervical spine. Pawan Sesay DO /la 06/03/2015 10:01: / 06/03/2015 10:14:22 cc:Dr. Everardo Medina This document has been electronically Signed by: On: DATE OF EXAM: Jun 03 2015 MRI 0218-MRI C SPINE WO CONTRAST : RADIOLOGY REPORT DATE OF SERVICE: 06/03/15 HISTORY: Neck pain radiating to head, bilateral arm tingling. MAGNETIC RESONANCE IMAGING CERVICAL SPINE WITHOUT CONTRAST 0908 HOURS Multiplanar multisequence images are evaluated. The craniocervical junction appears normal. The spinal cord shows no signal alteration. Normal curvature of the cervical spine is noted. The intervertebral spaces are well preserved. No bony injury is defined. No disc herniation, neural foraminal encroachment, or spinal canal stenosis is demonstrated. Very slight disc osteophyte complex presentation C6-C7 level. This causes minimal thecal effacement. No spinal canal stenosis is seen. IMPRESSION: Normal magnetic resonance imaging cervical spine. Pawan Sesay DO /la 06/03/2015 10:01: / 06/03/2015 10:14:22 cc:Dr. Everardo Medina This document has been electronically Signed by: PAWAN SESAY DO On: Jun 03 2015 11:02A Result Amended on 2015-06-03 at 11:02:10. Previous status was SC. History of procedures No procedures recorded for [...]
--- OUTSIDE RECORDS SUMMARY | 2016-11-04 13:59 | XMS REPORT | Clinical Summary ---
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 Hypoxemia Neck pain 723.1 Resolved Vishal [...] Anxiety Disorder ICD-300.00 Inactive Vishal Hui MD Abdominal pain ICD-789.00 [...] Inactive Vishal Hui MD Boils, recurrent ICD-680.9 Jim Hui MD Postconcussion syndrome ICD-310.2 Jim Hui MD Nevus, 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 Inactive Vishal Hui MD Encounter for removal of sutures ICD-V58.32 Inactive Vishal Hui MD Hot flashes ICD-627.2 Inactive Vishal Hui MD Personality change ICD-301.9 Inactive Vishal Hui MD Leukocytosis ICD-288.60 Inactive Vishal Hui MD UTI ICD-599.0 Inactive Vishal Hui MD Fatigue ICD-780.79 Inactive Vishal Hui MD 2014 Elevated blood glucose ICD-790.29 Inactive Vishal Hui MD Gait unsteady ICD-781.2 Inactive Albert Caldera MD Lipoma ICD-214.9 Inactive Albert Caldera MD Abdominal pain, RUQ ICD-789.01 Inactive Albert Caldera MD Chest pain, acute ICD-786.50 Inactive Albert Caldera MD Headache, atypical ICD-784.0 Inactive Albert Caldera MD Neck pain ICD-723.1 [...] day to help quit smoking VARENICLINE TARTRATE 97551831045 No Longer Active Dipika Burgos MD Active CHANTIX STARTING MONTH EARNEST 0.5 MG X 11 & 1 MG X 42 TABS take as directed 2015 VARENICLINE TARTRATE 60326243162 No Longer Active Dipika Burgos MD Active MONISTAT 7 COMBO PACK WOODROW 100 & 2 MG-% (9GM) VAG KIT 1 applicatorful per vagina q pm x 7 MICONAZOLE NITRATE 83824801615 Active Jillina Fradwightl COMPONENT OVERHAUL OPERATOR Active FLAGYL 500 MG TAB 1 tablet by mouth bid METRONIDAZOLE 33548115228 Active Jillina Frazell COMPONENT OVERHAUL OPERATOR Active TESSALON PERLES 100 MG CAP 1 to 2 tablets by mouth 3 times daily as needed for cough BENZONATATE 57326715245 No Longer Active Jillina Frazell COMPONENT OVERHAUL OPERATOR Active ABILIFY MAINTENA 400 MG IM SUSR 400mg injection every 26 days ARIPIPRAZOLE 72836730825 Active Silvia Ervinum ROUTE RETURNER Active IMITREX 50 MG ORAL TABS 0.5 po x 1 PRN Headache. May repeat dose x 1 in 2 hours if needed SUMATRIPTAN SUCCINATE 92409436838 Active Vishal Hui MD Active OXYCODONE HCL ER 10 MG ORAL T12A 1/2 tab by mouth every 4 hours prn OXYCODONE HCL 12995833838 Active Neeraj Collins MD Active METHYLPREDNISOLONE 4 MG ORAL TABS po daily METHYLPREDNISOLONE 85397374072 Active Vishal Hui MD Active LEVOFLOXACIN 500 MG ORAL TABS po daily LEVOFLOXACIN 69643997347 Active Vishal Hui MD Active HYDROCODONE-ACETAMINOPHEN 5-325 MG TABS 1 to 2 four times a day as needed for pain use until can be seen by specialist HYDROCODONE- ACETAMINOPHEN 35695090388 No Longer Active Vishal Hui MD Active PROAIR HFA 108 (90 BASE) MCG/ACT AERS 2 puffs four times a day as needed 2015 ALBUTEROL SULFATE 24140881784 No Longer Active Vishal Hui MD Active PREDNISONE 20 MG TABS 2 daily for 5 days then 1 daily for 5 days PREDNISONE 36613019132 No Longer Active Vishal Hui MD Active ZITHROMAX Z-EARNEST 250 MG TABS 2 today and then 1 daily for 4 days AZITHROMYCIN 42240576235 No Longer Active Vishal Hui MD Active DICLOFENAC SODIUM 50 MG TBEC 1 tablet by mouth four times daily PRN Pain 2015 DICLOFENAC SODIUM 79343316854 Active Vishal Hui MD Active DICLOFENAC POTASSIUM TABS Take 1 tablet twice a day (pt. is not sure of the dose.) DICLOFENAC POTASSIUM TABS 88157747955 No Longer Active Vishal Hui MD Active VERAPAMIL HCL ER 120 MG ORAL CR-TABS Take 1 tablet by mouth twice a day. VERAPAMIL HCL 56204678464 Active Vishal Hui MD Active FLAGYL 500 MG TAB 1 tablet by mouth bid METRONIDAZOLE 34828665119 No Longer Active Vishal Hui MD Active FLUTICASONE PROPIONATE 50 MCG/ACT SUSP 2 sprays each nostril daily before bed. FLUTICASONE PROPIONATE 46594597222 Active Fabiola Johnson APRN Active ADZENYS XR-ODT 6.3 MG ORAL TBED 1 tab po daily for ADHD AMPHETAMINE 12884832498 Active Fabiola Johnson APRN Active BENADRYL 25 MG CAP 4 po at bedtime for insomnia DIPHENHYDRAMINE HCL 11903156495 Active Fabiola Johnson APRN Active KLONOPIN 1 MG ORAL TABS 1 tab po TID CLONAZEPAM 83985916780 Active Fabiola Johnson APRN Active VALIUM 5 MG TAB Take 1-2 tablets daily DIAZEPAM 25986127562 No Longer Active Fabiola Johnson APRN Active METOPROLOL TARTRATE 25 MG ORAL TABS 1/2 tablet twice daily for heart rate and blood pressure METOPROLOL TARTRATE 52326178476 No Longer Active Fabiola Johnson APRN Active MIRALAX ORAL POWD 17GMS DAILY IN WATER POLYETHYLENE GLYCOL 3350 15418503302 Active Vishal Hui MD Active VIIBRYD 10 MG ORAL TABS Take 1 tablet once a day VILAZODONE HCL 71833000522 Active Ahmet Carbajal MD Active MIRALAX PACK 1 po qd PRN Constipation POLYETHYLENE GLYCOL 3350 05331757353 No Longer Active Ahmet Carbajal MD Active MINIPRESS 2 MG CAPS 4 cap po at night PRAZOSIN HCL 96509830717 No Longer Active Ahmet Carbajal MD Active PIROXICAM 20 MG CAPS 1 cap po qd PRN Pain PIROXICAM 90804347413 No Longer Active Ahmet Carbajal MD Active TRAMADOL HCL 50 MG TABS 1-2 po TID PRN Pain TRAMADOL HCL 70426448870 No Longer Active Ahmet Carbajal MD Active METOPROLOL TARTRATE 50 MG TAB 1 po bid METOPROLOL TARTRATE 34343342153 No Longer Active Ahmet Carbajal MD Active ABILIFY 15 MG ORAL TABS 1 tab daily ARIPIPRAZOLE 35439297290 No Longer Active Ahmet Carbajal MD Active PROZAC 20 MG ORAL CAPS 1 tab daily FLUOXETINE HCL 67758930699 No Longer Active Ahmet Carbajal MD Active AMBIEN 5 MG ORAL TABS 1 tab at bedtime ZOLPIDEM TARTRATE 31923341215 No Longer Active Ahmet Carbajal MD Active PREDNISONE 20 MG TAB 2 tabs daily for 4 days, 1 tab daily for 4 days, 1/2 tab daily for 4 days PREDNISONE 14820901997 No Longer Active Ahmet Carbajal MD Active KEFLEX 500 MG CAP 1 po TID x 10 days CEPHALEXIN 53757158866 No Longer Active Vishal Hui MD Active TOPAMAX 50 MG ORAL TABS 1 tab twice daily TOPIRAMATE 46713797711 Active Vishal Hui MD Active SAPHRIS 5 MG SUBL 1 po bid ASENAPINE MALEATE 69974559212 No Longer Active Luigi Martínez APRN Active LATUDA 80 MG TABS Take one by mouth daily LURASIDONE HCL 60061672990 No Longer Active Luigi Martínez APRN Active AMLODIPINE BESYLATE 5 MG TABS 1 tablet by mouth daily AMLODIPINE BESYLATE 49167311146 No Longer Active Luigi Martínez APRN Active AMITRIPTYLINE HCL 100 MG TAB one at hs AMITRIPTYLINE HCL 26103049781 No Longer Active Vishal Hui MD Active TRAZODONE HCL 100 MG TAB take 1 at bedtime TRAZODONE HCL 00045085885 No Longer Active Vishal Hui MD Active VYVANSE 40 MG CAPS 1 daily, LISDEXAMFETAMINE DIMESYLATE 39219368150 No Longer Active Vishal Hui MD Active IBUPROFEN 600 MG TAB 1 po TID PRN IBUPROFEN 11696204992 No Longer Active Vishal Hui MD Active PROZAC 20 MG CAP Take one by mouth daily FLUOXETINE HCL 29594083735 No Longer Active Vishal Hui MD Active ZOFRAN 4 MG TABS 1 po q6hr PRN Nausea ONDANSETRON HCL Active Vishal Hui MD Active BACTRIM DS 800-160 MG TABS 1 pill by mouth twice daily SULFAMETHOXAZOLE-TRIMETHOPRIM 43304741371 No Longer Active Sahara Rodriguez MD PhD Active DIFLUCAN 150 MG TAB 1 tablet by mouth daily FLUCONAZOLE 92002400338 No Longer Active Vishal Hui MD Active TIZANIDINE HCL 4 MG TABS 1 po q6hr PRN Muscle Spasm/Back Pain TIZANIDINE HCL 75226936934 Active Vishal Hui MD Active CLINDAMYCIN HCL 150 MG CAPS 1 four times a day CLINDAMYCIN HCL 45486346632 No Longer Active Neeraj Collins MD Active KEFLEX 500 MG ORAL CAPS 1 cap QID by mouth CEPHALEXIN 21476390052 No Longer Active Neeraj Collins MD Active DIFLUCAN 150 MG TABS 1 pill every other day x 2 doses FLUCONAZOLE 50638224201 No Longer Active Sahara Rodriguez MD PhD Active MELATONIN 3 MG CAPS 2 po q hs MELATONIN 46857927487 No Longer Active Sahara Rodrigeuz MD PhD Active MULTIVITAMINS CAPS Take one by mouth daily MULTIPLE VITAMIN 75562044801 No Longer Active Sahara Rodriguez MD PhD Active BACTRIM DS 800-160 MG TAB 1 tab by mouth twice daily TRIMETHOPRIM-SULFAMETHOXAZOLE 69923842291 No Longer Active Sahara Rodriguez MD PhD Active [facility] PROBIOTIC ORAL CHEW 2 daily po PROBIOTIC PRODUCT 56619800586 No Longer Active Sahara Rodriguez MD PhD Active BACTRIM DS 800-160 MG TABS 1 po BID x 7 days SULFAMETHOXAZOLE-TRIMETHOPRIM 52663770551 No Longer Active Vishal Hui MD Active CHANTIX STARTING MONTH EARNEST 0.5 MG X 11 & 1 MG X 42 TABS 0.5mg daily for 3 days , then 0.5mg BID for 4 days, then 1mg BID VARENICLINE TARTRATE 05840685779 No Longer Active TAMARA Gray Active VERAPAMIL HCL CR 120 MG TAB CR 1 po bid VERAPAMIL HCL 23730373475 No Longer Active Vishal Hui MD Active METOPROLOL SUCCINATE 50 MG TB24 1 tablet by mouth daily METOPROLOL SUCCINATE 95533888731 No Longer Active Vishal Hui MD Active SAPHRIS 10 MG SUBL 1 tab po bid ASENAPINE MALEATE 27646108748 No Longer Active Vishal Hui MD Active LISINOPRIL 20 MG TABS 1 tab po qd LISINOPRIL 65143475155 No Longer Active Vishal Hui MD Active LATUDA 20 MG TABS Take one by mouth daily LURASIDONE HCL 63671528922 No Longer Active Vishal Hui MD Active TRAZODONE HCL 50 MG TABS 1/2 tab po qd prn for anxiety TRAZODONE HCL 70851018551 No Longer Active Vishal Hui MD Active OMEPRAZOLE 20 MG TBEC 1 po q a.m. 30min prior to first food intake OMEPRAZOLE 29161445062 Active Vishal Hui MD Active RANITIDINE HCL 150 MG CAPS 1 twice a day RANITIDINE HCL 99385758729 Active Jillina Messizelephraim COMPONENT OVERHAUL OPERATOR Active LINZESS 290 MCG CAPS Take one by mouth daily LINACLOTIDE 01402126838 No Longer Active Vishal Hui MD Active SAPHRIS 5 MG SUBL 1 tab po qd ASENAPINE MALEATE 73642009047 No Longer Active Vishal Hui MD Active ZALEPLON 10 MG CAPS 1 cap po every other night ZALEPLON 58130344814 No Longer Active Vishal Hui MD Active LYRICA 50 MG CAPS 1 tab po TID PREGABALIN 95153803479 No Longer Active Vishal Hui MD Active LORATADINE 10 MG TABS 1 tab po qd LORATADINE 68440153669 No Longer Active Vishal Hui MD Active VERAPAMIL HCL ER 180 MG CR-TABS 1 tab po bid VERAPAMIL HCL 35836834861 No Longer Active Vishal Hui MD Active MIRALAX POWD 1 capfull once daily POLYETHYLENE GLYCOL 3350 18818200232 No Longer Active Vishal Hui MD Active PREDNISONE 20 MG TABS 1 tab po qd PREDNISONE 71365487710 No Longer Active Renzo Thornton DO Active LEVOFLOXACIN 500 MG TABS 1 tab po qd LEVOFLOXACIN 07571662636 No Longer Active Renzo Thornton DO Active BUSPIRONE HCL 15 MG TABS 1 tab po TID BUSPIRONE HCL 16539186701 No Longer Active Renzo Thornton DO Active BENZTROPINE MESYLATE 1 MG TABS 1 tab po qd BENZTROPINE MESYLATE 12365384706 No Longer Active Renzo Thornton DO Active ATENOLOL 25 MG TABS 1 tab po qd ATENOLOL 51572127668 No Longer Active Renzo Thornton DO Active ESCITALOPRAM OXALATE 20 MG TABS 1 tab po qd ESCITALOPRAM OXALATE 34770722494 No Longer Active Renzo Thornton DO Active ADVAIR DISKUS 250-50 MCG/DOSE AEPB 1 puff BID FLUTICASONE-SALMETEROL 07406968612 No Longer Active Renzo Thornton DO Active PREDNISONE 20 MG TAB 2 tabs daily for 3 days, 1 tab daily for 3 days, 1/2 tab daily for 2 days PREDNISONE 90353244911 No Longer Active Vishal Hui MD Active CEFDINIR 300 MG CAPS by mouth twice a day CEFDINIR 20190327388 No Longer Active Vishal Hui MD Active LANSOPRAZOLE 30 MG CPDR 1 cap po qd LANSOPRAZOLE 47781260668 No Longer Active Vishal Hui MD Active BACLOFEN 20 MG TABS 1 tab po tid BACLOFEN 57440741187 No Longer Active Vishal Hui MD Active ADVAIR DISKUS 250-50 MCG/DOSE AEPB 1 puff BID ADVAIR DISKUS 250-50 MCG/DOSE AEPB FLUTICASONE-SALMETEROL Inactive ESCITALOPRAM OXALATE 20 MG TABS 1 tab po qd ESCITALOPRAM OXALATE 20 MG TABS 199102 ESCITALOPRAM OXALATE Inactive ATENOLOL 25 MG TABS 1 tab po qd ATENOLOL 25 MG TABS 983696 ATENOLOL Inactive BENZTROPINE MESYLATE 1 MG TABS 1 tab po qd BENZTROPINE MESYLATE 1 MG TABS 240365 BENZTROPINE MESYLATE Inactive BUSPIRONE HCL 15 MG TABS 1 tab po TID BUSPIRONE HCL 15 MG TABS 569971 BUSPIRONE HCL Inactive LEVOFLOXACIN 500 MG TABS 1 tab po qd LEVOFLOXACIN 500 MG TABS 194319 LEVOFLOXACIN Inactive PREDNISONE 20 MG TABS 1 tab po qd PREDNISONE 20 MG TABS 024513 PREDNISONE Inactive MIRALAX POWD 1 capfull once daily MIRALAX POWD 171167 POLYETHYLENE GLYCOL 3350 Inactive VERAPAMIL HCL ER 180 MG CR-TABS 1 tab po bid VERAPAMIL HCL ER 180 MG CR-TABS VERAPAMIL HCL Inactive LORATADINE 10 MG TABS 1 tab po qd LORATADINE 10 MG TABS 919650 LORATADINE Inactive LYRICA 50 MG CAPS 1 tab po TID LYRICA 50 MG CAPS PREGABALIN Inactive ZALEPLON 10 MG CAPS 1 cap po every other night ZALEPLON 10 MG CAPS 036466 ZALEPLON Inactive SAPHRIS 5 MG SUBL 1 tab po qd SAPHRIS 5 MG SUBL ASENAPINE MALEATE Inactive TRAZODONE HCL 50 MG TABS 1/2 tab po qd prn for anxiety TRAZODONE HCL 50 MG TABS 955488 TRAZODONE HCL Inactive LATUDA 20 MG TABS Take one by mouth daily LATUDA 20 MG TABS LURASIDONE HCL Inactive LISINOPRIL 20 MG TABS 1 tab po qd LISINOPRIL 20 MG TABS 753847 LISINOPRIL Inactive SAPHRIS 10 MG SUBL 1 [...] twice daily BACTRIM DS 800-160 MG TAB 425515 TRIMETHOPRIM-SULFAMETHOXAZOLE Inactive MULTIVITAMINS CAPS Take one by mouth daily MULTIVITAMINS CAPS MULTIPLE VITAMIN Inactive MELATONIN 3 MG CAPS 2 po q hs MELATONIN 3 MG CAPS 762461 MELATONIN Inactive KEFLEX 500 MG ORAL CAPS 1 cap QID by mouth KEFLEX 500 MG ORAL CAPS 563333 CEPHALEXIN Inactive CLINDAMYCIN HCL 150 MG CAPS 1 four times a day CLINDAMYCIN HCL 150 MG CAPS 121257 CLINDAMYCIN HCL Inactive DIFLUCAN 150 MG TAB 1 tablet by mouth daily DIFLUCAN 150 MG TAB 687815 FLUCONAZOLE Inactive PROZAC 20 MG CAP Take one by mouth daily PROZAC 20 MG CAP 022127 FLUOXETINE HCL Inactive IBUPROFEN 600 MG TAB 1 po TID PRN IBUPROFEN 600 MG TAB 117373 IBUPROFEN Inactive VYVANSE 40 MG CAPS 1 daily, VYVANSE 40 MG CAPS LISDEXAMFETAMINE DIMESYLATE Inactive TRAZODONE HCL 100 MG TAB take 1 at bedtime TRAZODONE HCL 100 MG TAB 980642 TRAZODONE HCL Inactive AMITRIPTYLINE HCL 100 MG TAB one at hs AMITRIPTYLINE HCL 100 MG TAB 966347 AMITRIPTYLINE HCL Inactive AMLODIPINE BESYLATE 5 MG TABS 1 tablet by mouth daily AMLODIPINE BESYLATE 5 MG TABS 975198 AMLODIPINE BESYLATE Inactive LATUDA 80 MG TABS Take one by mouth daily LATUDA 80 MG TABS LURASIDONE HCL Inactive SAPHRIS 5 MG SUBL 1 po bid SAPHRIS 5 MG SUBL ASENAPINE MALEATE Inactive PREDNISONE 20 MG TAB 2 tabs daily for 4 days, 1 tab daily for 4 days, 1/2 tab daily for 4 days PREDNISONE 20 MG TAB 592340 PREDNISONE Inactive AMBIEN 5 MG ORAL TABS 1 tab at bedtime AMBIEN 5 MG ORAL TABS 291054 ZOLPIDEM TARTRATE Inactive PROZAC 20 MG ORAL CAPS 1 tab daily PROZAC 20 MG ORAL CAPS 904583 FLUOXETINE HCL Inactive ABILIFY 15 MG ORAL TABS 1 tab daily ABILIFY 15 MG ORAL TABS 632207 ARIPIPRAZOLE Inactive METOPROLOL TARTRATE 50 MG TAB 1 po bid METOPROLOL TARTRATE 50 MG TAB 183156 METOPROLOL TARTRATE Inactive TRAMADOL HCL 50 MG TABS 1-2 po TID PRN Pain TRAMADOL HCL 50 MG TABS 308702 TRAMADOL HCL Inactive PIROXICAM 20 MG CAPS 1 cap po qd PRN Pain PIROXICAM 20 MG CAPS 184913 PIROXICAM Inactive MINIPRESS 2 MG CAPS 4 cap po at night MINIPRESS 2 MG CAPS 163536 PRAZOSIN HCL Inactive MIRALAX PACK 1 po qd PRN Constipation MIRALAX PACK 737427 POLYETHYLENE GLYCOL 3350 Inactive METOPROLOL TARTRATE 25 MG ORAL TABS 1/2 tablet twice daily for heart rate and blood pressure METOPROLOL TARTRATE 25 MG ORAL TABS 253844 METOPROLOL TARTRATE Inactive VALIUM 5 MG TAB Take 1-2 tablets daily VALIUM 5 MG TAB 367328 DIAZEPAM Inactive FLAGYL 500 MG TAB 1 tablet by mouth bid FLAGYL 500 MG TAB 418755 METRONIDAZOLE Inactive DICLOFENAC POTASSIUM TABS Take 1 tablet twice a day (pt. is not sure of the dose.) DICLOFENAC POTASSIUM TABS DICLOFENAC POTASSIUM TABS Inactive ZITHROMAX Z-EARNEST 250 MG TABS 2 today and then 1 daily for 4 days ZITHROMAX Z-EARNEST 250 MG TABS 4599449 AZITHROMYCIN Inactive PREDNISONE 20 MG TABS 2 daily for 5 days then 1 daily for 5 days PREDNISONE 20 MG TABS 292078 PREDNISONE Inactive PROAIR HFA 108 (90 BASE) MCG/ACT AERS 2 puffs four times a day as needed 2015 PROAIR HFA 108 (90 BASE) MCG/ACT AERS ALBUTEROL SULFATE Inactive HYDROCODONE-ACETAMINOPHEN 5-325 MG TABS 1 to 2 four times a day as needed for pain use until can be seen by specialist HYDROCODONE- ACETAMINOPHEN 5-325 MG TABS 785145 HYDROCODONE-ACETAMINOPHEN Inactive TESSALON PERLES 100 MG CAP 1 to 2 tablets by mouth 3 times daily as needed for cough TESSALON PERLES 100 MG CAP 947477 BENZONATATE Inactive CHANTIX STARTING MONTH EARNEST 0.5 [...] twice a day CEFDINIR 300 MG CAPS 681559 CEFDINIR Inactive PREDNISONE 20 MG TAB 2 tabs daily for 3 days, 1 tab daily for 3 days, 1/2 tab daily for 2 days PREDNISONE 20 MG TAB 999280 PREDNISONE Inactive BACTRIM DS 800-160 MG TABS [...] x 10 days KEFLEX 500 MG CAP 388105 CEPHALEXIN Inactive Advance Directives Directive Description Start [...] % 11.6-14.8 platelet count 394 10^3/MM^3 10*3/mm3 443-232 6192/12/22 erythrocyte (RBC) count 4.19 10^6/MM^3 10*6/mm3 4.04-5.48 hemoglobin, blood 13.1 g/dL 12.0-16.0 hematocrit, blood 39.0 % 36.0-46.0 mean corpuscular volume, RBC 93 fL 80-97 mean corpuscular hemoglobin, RBC 31.4 pg 27.0-31.2 leukocyte count, blood 13.8 10^3/MM^3 10*3/mm3 4.6-10.2 mean corpuscular hemoglobin concentration, RBC 33.6 G/DL % 31.8- 35.4 red blood cell distribution width 14.4 % 11.6-14.8 platelet count 390 10^3/MM^3 10*3/mm3 397-859 6173/01/11 erythrocyte (RBC) count 4.46 10^6/MM^3 10*6/mm3 4.04-5.48 hemoglobin, blood 14.0 g/dL 12.0-16.0 hematocrit, blood 41.8 % 36.0-46.0 mean corpuscular volume, RBC 94 fL 80-97 mean corpuscular hemoglobin, RBC 31.5 pg 27.0-31.2 Lab Report: CBC W/DIFF - Hematology neutrophils [...] Panel - Chemistry sodium, serum 139 mmol/L 417-753 9805/12/03 carbon dioxide, venous blood 28.5 mmol/L 21.0-32.0 [...] 5.5 % 4.3-6.0 cholesterol, serum 159 mg/dL 016-314 5324/12/03 triglyceride, serum, fasting 118 mg/dL 30-200 HDL [...] 362 10^3/MM^3 10*3/mm3 142-424 Lab Report: Chlamydia/GC APTIMA/11321 - Lab chlamydia DNA probe NOT DETECTED NOT DETECTED Lab Report: Chlamydia/GC APTIMA/00688 - Microbiology Neisseria gonorrhoeae DNA probe NOT DETECTED NOT DETECTED Lab Report: Comp. Metabolic Panel - Chemistry sodium, serum 140 mmol/L 991-700 0956/08/08 creatinine, serum 0.88 mg/dL 0.55-1.30 alanine aminotransferase (SGPT), serum 54 U/L 12-78 aspartate aminotransferase (SGOT), serum 29 U/L 15-37 calcium, serum 9.7 mg/dL 8.5-10.1 bilirubin, serum, total 0.30 mg/dL 0.00-1.00 carbon dioxide, venous blood 33.7 mmol/L 21.0-32.0 potassium, serum 5.0 mmol/L 3.5-5.2 chloride, serum 103 mmol/L 98-107 blood glucose 80 mg/dL 65-110 urea nitrogen, blood 13 mg/dL 7-18 carbon dioxide, venous blood 27.6 mmol/L 21.0-32.0 potassium, serum 4.0 mmol/L 3.5-5.2 chloride, serum 105 mmol/L 98-107 blood glucose 95 mg/dL 65-110 urea nitrogen, blood 8 mg/dL 7-18 sodium, serum 139 mmol/L 291-184 6635/12/22 creatinine, serum 0.90 mg/dL 0.55-1.30 alanine aminotransferase (SGPT), serum 38 U/L aspartate aminotransferase (SGOT), serum 19 U/L 15-37 calcium, serum 8.6 mg/dL 8.5-10.1 bilirubin, serum, total 0.30 mg/dL 0.00-1.00 carbon dioxide, venous blood 26.8 mmol/L 21.0-32.0 potassium, serum 4.2 mmol/L 3.5-5.2 chloride, serum 103 mmol/L 98-107 blood glucose 115 mg/dL 65-110 urea nitrogen, blood 20 mg/dL 7-18 sodium, serum 139 mmol/L 967-556 5671/01/11 carbon dioxide, venous blood 26.6 mmol/L 21.0-32.0 potassium, serum 4.1 mmol/L 3.5-5.2 chloride, serum 100 mmol/L 98-107 blood glucose 86 mg/dL 65-110 urea nitrogen, blood 16 mg/dL 7-18 creatinine, serum 1.00 mg/dL 0.55-1.30 alanine aminotransferase (SGPT), serum 48 U/L 78 aspartate aminotransferase (SGOT), serum 17 U/L 15-37 calcium, serum 9.1 mg/dL 8.5-10.1 bilirubin, serum, total 0.40 mg/dL 0.00-1.00 sodium, serum 142 mmol/L 242-553 8569/06/08 creatinine, serum 0.75 mg/dL 0.55-1.30 alanine aminotransferase (SGPT), serum 49 U/L 12-78 aspartate aminotransferase (SGOT), serum 28 U/L 15-37 calcium, serum 9.4 mg/dL 8.5-10.1 bilirubin, serum, total 0.30 mg/dL 0.00-1.00 Lab Report: Comp. Metabolic Panel, Erythrocyte Sed Rate - Chemistry sodium, serum 139 mmol/L 744-306 4123/12/11 creatinine, serum 0.96 mg/dL 0.55-1.30 alanine aminotransferase [...] mg/dL Encounters Code Encounter Date Provider Facility CPT-14611 Level 3 Est. Patient 13:59:59 CDT Luigi Martínez APRN [facility] CPT-88011 Level 3 Est. Patient 18:18:53 CDT Neeraj Collins MD [facility] CPT-58801 Level 3 Est. Patient 15:50:44 CDT Vishal Hui MD [facility] CPT-18811 Level 3 Est. Patient 11:36:17 CDT Ahmet Carbajal MD [facility] CPT-81036 Level 3 Est. Patient 13:29:16 CDT Vishal Hui MD [facility] CPT-37722 Level 3 Est. Patient 14:27:52 CDT Neeraj Collins MD [facility] CPT-33387 Level 3 Est. Patient 08:56:03 CDT Luigi Martínez [facility] CPT-97450 Level 4 Est. Patient 12:11:48 CDT Fabiola Johnson [facility] CPT-44155 Level 3 New Patient 16:53:37 CDT Albert Caldera MD [facility] CPT-51071 Level 3 Est. Patient 11:25:49 CDT Renzo Thornton DO [facility] CPT-18613 Level 3 Est. Patient 15:22:01 CDT Ahmet Carbajal MD [facility] CPT-39437 Level 4 Est. Patient 09:00:51 ENGRAVER LETTERING Vishal Hui MD [facility] CPT-03083 Level 3 Est. Patient 11:37:33 ENGRAVER LETTERING Vishal Hui MD [facility] CPT-96349 Level 3 Est. Patient 08:41:09 ENGRAVER LETTERING Vishal Hui MD [facility] CPT-91632 Level 4 Est. Patient 10:19:35 ENGRAVER LETTERING Vishal Hui MD [facility] CPT-22722 Level 3 Est. Patient 13:35:45 CDT Vishal Hui MD [facility] CPT-49337 Level 4 Est. Patient 10:08:37 CDT Vishal Hui MD [facility] CPT-23792 Level 3 Est. Patient 11:22:10 CDT Vishal Hui MD [facility] CPT-21464 Level 3 Est. Patient 11:03:32 CDT Sahara Rodriguez MD [facility] CPT-22783 Level 3 Est. Patient 09:41:35 CDT Vishal Hui MD [facility]-93754 Level 3 Est. Patient 12:00:41 CDT Neeraj Collins MD [facility] CPT-01371 Level 3 Est. Patient 09:16:24 CDT Vishal Hui MD [facility] CPT-00794 Level 4 Est. Patient 13:59:09 CDT Neeraj Collins MD [facility]-37093 Level 3 Est. Patient 15:19:43 CDT Renzo hTornton DO [facility] CPT-77702 Level 3 Est. Patient 18:10:26 CDT Sahara Rodriguez MD [facility]-56719 Level 3 Est. Patient 14:49:50 CDT Vishal Hui MD [facility] CPT-40892 Level 4 Est. Patient 18:41:46 CDT Neeraj Collins MD [facility]-95870 Level 4 Est. Patient 09:18:38 ENGRAVER LETTERING Vishal Hui MD [facility] CPT-42096 Level 3 Est. Patient 14:43:55 ENGRAVER LETTERING Vishal Hui MD [facility] CPT-87165 Level 3 Est. Patient 15:26:33 ENGRAVER LETTERING Sahara Rodriguez MD [facility] CPT-02508 Level 3 Est. Patient 10:32:14 ENGRAVER LETTERING Vishal Hui MD [facility]-00367 Level 3 Est. Patient 15:12:52 ENGRAVER LETTERING Vishal Hui MD [facility] CPT-65306 Level 4 Est. Patient 09:19:27 CDT Vishal Hui MD [facility] CPT-60639 Level 3 Est. Patient 15:53:00 CDT Renzo Thornton [facility] CPT-55987 Level 3 Est. Patient 15:50:30 CDT Renzo Thornton [facility] CPT-08523 Level 3 Est. Patient 16:55:24 CDT Vishal Hui MD [facility] Procedures Code Procedure Name Date Entry Date Standard Description CPT-84596 Abx/Therapy Injection 17:34:30 ENGRAVER LETTERING CPT-13177 Nexplanon Removal with Reinsertion 14:09:32 CDT CPT-J7307 Nexplanon (Implant) 14:09:32 CDT CPT-OV Office Visit 14:09:32 CDT CPT-54039 UA w micro - LAB USE ONLY 16:21:13 CDT CPT-43357 Wet Mount - LAB USE ONLY 16:21:13 CDT CPT-44473 First Vx - Ix admin for Medicare patients 14:37:47 CDT CPT-01742 Fluzone Preservative Free Intramuscular Suspension 14:37 :47 CDT CPT-46960 Abx/Therapy Injection 13:54:22 CDT CPT-20164 Abx/Therapy Injection 08:47:09 CDT CPT-48586 Abx/Therapy Injection 13:29:56 CDT CPT-07650 Abx/Therapy Injection 08:36:16 CDT CPT-53881 Wet Mount - LAB USE ONLY 17:44:58 CDT CPT-21867 UA w micro - LAB USE ONLY 17:44:58 CDT CPT-89228 CMP - LAB USE ONLY 17:44:58 CDT CPT-39454 Venipuncture Draw Fee 17:44:58 CDT CPT-15180 Cervical Min 4V - XRAY USE ONLY 09:01:40 CDT CPT-92533 Chest 2V Frontal and Lat - XRAY USE ONLY 11:06:31 CDT CPT-27669 EKG Trac and Interp - XRAY USE ONLY 11:31:43 CDT 08/26 CPT-J3420 Vitamin B12 1000mcg (Cyanocobalamin) 08:10:26 ENGRAVER LETTERING 04/12 CPT-15208 Abx/Therapy Injection 08:10:26 ENGRAVER LETTERING CPT-G0438 Initial Annual Wellness Exam 19:01:01 ENGRAVER LETTERING CPT-J3420 Vitamin B12 1000mcg (Cyanocobalamin) 16:57:46 CDT 08/14 CPT-09134 Recombivax HB Injection Suspension 5 MCG/0.5ML 08:37:50 ENGRAVER LETTERING CPT-07077 Immunization Single Admin 08:37:50 ENGRAVER LETTERING CPT-J3420 Vitamin B12 1000mcg (Cyanocobalamin) 08:32:16 ENGRAVER LETTERING 03/11 CPT-42414 Abx/Therapy Injection 08:32:16 ENGRAVER LETTERING CPT-46940 Chest 2V Frontal and Lat 11:46:38 ENGRAVER LETTERING CPT-15860 Venipuncture Draw Fee 09:12:45 ENGRAVER LETTERING CPT-J3420 Vitamin B12 1000mcg (Cyanocobalamin) 08:50:15 ENGRAVER LETTERING 02/08 CPT-05654 Abx/Therapy Injection 08:50:15 ENGRAVER LETTERING CPT-Cryo Cryotherapy 10:19:35 ENGRAVER LETTERING CPT-000 Give Appropriate Flu Vaccine 09:22:16 CDT CPT-J3420 Vitamin B12 1000mcg (Cyanocobalamin) 19:08:57 CDT 01/11 CPT-53217 Abx/Therapy Injection 19:08:57 CDT CPT-J3420 Vitamin B12 1000mcg (Cyanocobalamin) 08:19:08 CDT 12/11 CPT-42811 Abx/Therapy Injection 08:19:08 CDT CPT-J3420 Vitamin B12 1000mcg (Cyanocobalamin) 14:48:00 CDT 11/09 CPT-32745 Abx/Therapy Injection 14:47:59 CDT CPT-J3420 Vitamin B12 1000mcg (Cyanocobalamin) 08:34:04 CDT 10/09 CPT-43210 Abx/Therapy Injection 08:34:04 CDT CPT-J3420 Vitamin B12 1000mcg (Cyanocobalamin) 09:18:52 CDT 09/11 CPT-58069 Abx/Therapy Injection 09:18:52 CDT CPT-J3420 Vitamin B12 1000mcg (Cyanocobalamin) 08:35:44 CDT 09/04 CPT-98541 Abx/Therapy Injection 08:35:44 CDT CPT-46031 Immunization Single Admin 11:07:16 CDT CPT-76674 Hepatitis B adult IM 11:07:16 CDT CPT-J3420 Vitamin B12 1000mcg (Cyanocobalamin) 11:00:49 CDT 08/28 CPT-J1040 Depo Medrol 80 mg (Methyl Prednisolone Acetate) 11:00: 49 CDT CPT-45985 Abx/Therapy Injection 11:00:49 CDT CPT-J1040 Depo Medrol 80 mg (Methyl Prednisolone Acetate) 09:16: 23 CDT CPT-J3420 Vitamin B12 1000mcg (Cyanocobalamin) 08:27:05 CDT 08/20 CPT-62086 Abx/Therapy Injection 08:27:05 CDT CPT-67501 Recombivax HB Injection Suspension 5 MCG/0.5ML 10:00:41 CDT CPT-29651 Administration single or combination vaccine inc oral 10 :00:41 CDT CPT-09825 Sono transvag pelvis non OB uterus ovaries cervix 16:36: 57 CDT CPT-19218 LS spine comp w obliq 09:50:55 ENGRAVER LETTERING CPT-47569 Abd compl w upright 09:50:55 ENGRAVER LETTERING CPT-J1100 Decadron 4mg (Dexamethasone) 15:51:24 ENGRAVER LETTERING CPT-J1030 Depo Medrol 40 mg (Methyl Prednisolone Acetate) 15:51: 24 ENGRAVER LETTERING CPT-56776 Abx/Therapy Injection 15:51:24 ENGRAVER LETTERING CPT-J1100 Decadron 4mg (Dexamethasone) 15:26:33 ENGRAVER LETTERING CPT-J1030 Depo Medrol 40 mg (Methyl Prednisolone Acetate) 15:26: 33 ENGRAVER LETTERING CPT-98353 Sono retroperitoneal complete kidneys and bladder 17:15: 30 CDT CPT-94079 Abd compl w upright 16:09:25 CDT CPT-J1100 Decadron 8mg (Dexamethasone) 17:07:57 CDT CPT-46735 Abx/Therapy Injection 17:07:57 CDT CPT-J1100 Decadron 8mg (Dexamethasone) 16:55:24 CDT CPT-78041 Chest 2V Frontal and Lat 16:32:44 CDT
--- OUTSIDE RECORDS SUMMARY | 2016-11-04 14:00 | XMS REPORT | Clinical Summary ---
Author Author Admin, E Organization [facility] [facility] Address Unknown Phone Unavailable Allergies, Adverse Reactions, [...] ORAL CHEW 2 daily po PROBIOTIC PRODUCT 78899703592 Active Jillina Frazell SKIN PASS OPERATOR Active IBUPROFEN 600 MG TAB 1 po TID PRN IBUPROFEN 47157079049 Active Jillina Frazell SKIN PASS OPERATOR Active BACTRIM DS 800-160 MG TAB 1 tab by mouth twice daily TRIMETHOPRIM-SULFAMETHOXAZOLE 89303471910 Active Neeraj Collins MD Active BACTRIM DS 800-160 MG TABS 1 po BID x 7 days SULFAMETHOXAZOLE-TRIMETHOPRIM 15072549170 No Longer Active Vishal Hui MD Active CHANTIX STARTING MONTH EARNEST 0.5 MG X 11 & 1 MG X 42 TABS 0.5mg daily for 3 days , then 0.5mg BID for 4 days, then 1mg BID VARENICLINE TARTRATE 81945191952 No Longer Active TAMARA Gray Active METOPROLOL TARTRATE 50 MG TAB 1 po bid METOPROLOL TARTRATE 04320905778 Active Vishal Hui MD Active TRAZODONE HCL 100 MG TAB take 1 at bedtime TRAZODONE HCL 79825283993 Active Vishal Hui MD Active AMLODIPINE BESYLATE 5 MG TABS 1 tablet by mouth daily AMLODIPINE BESYLATE 70218156541 Active Vishal Hui MD Active VERAPAMIL HCL CR 120 MG TAB CR 1 po bid VERAPAMIL HCL 66668693724 No Longer Active Vishal Hui MD Active METOPROLOL SUCCINATE 50 MG TB24 1 tablet by mouth daily METOPROLOL SUCCINATE 36223848718 No Longer Active Vishal Hui MD Active TRAMADOL HCL 50 MG TABS 1-2 po TID PRN Pain TRAMADOL HCL 72755892972 Active Vishal Hui MD Active SAPHRIS 5 MG SUBL 1 po bid ASENAPINE MALEATE 43163551050 Active Vishal Hui MD Active SAPHRIS 10 MG SUBL 1 tab po bid ASENAPINE MALEATE 14958667226 No Longer Active Vishal Hui MD Active LISINOPRIL 20 MG TABS 1 tab po qd LISINOPRIL 93664068818 No Longer Active Vishal Hui MD Active BENADRYL 25 MG CAP 2 po tid prn anxiety DIPHENHYDRAMINE HCL 39991645648 Active Vishal Hui MD Active LATUDA 80 MG TABS Take one by mouth daily LURASIDONE HCL 23199422391 Active Vishal Hui MD Active LATUDA 20 MG TABS Take one by mouth daily LURASIDONE HCL 57199582097 No Longer Active Vishal Hui MD Active TRAZODONE HCL 50 MG TABS 1/2 tab po qd prn for anxiety TRAZODONE HCL 24825684351 No Longer Active Vishal Hui MD Active PIROXICAM 20 MG CAPS 1 cap po qd PRN Pain PIROXICAM 40476278142 Active Vishal Hui MD Active OMEPRAZOLE 20 MG TBEC 1 po q a.m. 30min prior to first food intake OMEPRAZOLE 79474530030 Active Vishal Hui MD Active RANITIDINE HCL 150 MG CAPS 1 twice a day RANITIDINE HCL 68121795976 Active Vishal Hui MD Active MULTIVITAMINS CAPS Take one by mouth daily MULTIPLE VITAMIN 22673833112 Active Vishal Hui MD Active MELATONIN 3 MG CAPS 2 po q hs MELATONIN 86443095486 Active Vishal Hui MD Active PROZAC 20 MG CAP Take one by mouth daily FLUOXETINE HCL 95187249086 Active Vishal Hui MD Active LINZESS 290 MCG CAPS Take one by mouth daily LINACLOTIDE 76037573759 Active Vishal Hui MD Active SAPHRIS 5 MG SUBL 1 tab po qd ASENAPINE MALEATE 11281152779 No Longer Active Vishal Hui MD Active ZALEPLON 10 MG CAPS 1 cap po every other night ZALEPLON 64555698604 No Longer Active Vishal Hui MD Active LYRICA 50 MG CAPS 1 tab po TID PREGABALIN 71383436111 No Longer Active Vishal Hui MD Active LORATADINE 10 MG TABS 1 tab po qd LORATADINE 39926693031 No Longer Active Vishal Hui MD Active VERAPAMIL HCL ER 180 MG CR-TABS 1 tab po bid VERAPAMIL HCL 88581445544 No Longer Active Vishal Hui MD Active MIRALAX POWD 1 capfull once daily POLYETHYLENE GLYCOL 3350 95827246746 No Longer Active Vishal Hui MD Active PREDNISONE 20 MG TABS 1 tab po qd PREDNISONE 82223835641 No Longer Active Renzo Thornton DO Active LEVOFLOXACIN 500 MG TABS 1 tab po qd LEVOFLOXACIN 91101905226 No Longer Active Renzo Thornton DO Active BUSPIRONE HCL 15 MG TABS 1 tab po TID BUSPIRONE HCL 14643396093 No Longer Active Renzo Thornton DO Active BENZTROPINE MESYLATE 1 MG TABS 1 tab po qd BENZTROPINE MESYLATE 09487500165 No Longer Active Renzo Thornton DO Active ATENOLOL 25 MG TABS 1 tab po qd ATENOLOL 83293662502 No Longer Active Renzo Thornton DO Active ESCITALOPRAM OXALATE 20 MG TABS 1 tab po qd ESCITALOPRAM OXALATE 18253147453 No Longer Active Renzo Thornton DO Active ADVAIR DISKUS 250-50 MCG/DOSE AEPB 1 puff BID FLUTICASONE-SALMETEROL 00421122661 No Longer Active Renzo Thornton DO Active PREDNISONE 20 MG TAB 2 tabs daily for 3 days, 1 tab daily for 3 days, 1/2 tab daily for 2 days PREDNISONE 93631453617 No Longer Active Vishal Hui MD Active CEFDINIR 300 MG CAPS by mouth twice a day CEFDINIR 69958829022 No Longer Active Vishal Hui MD Active LANSOPRAZOLE 30 MG CPDR 1 cap po qd LANSOPRAZOLE 58925168974 No Longer Active Vishal Hui MD Active TOPAMAX 25 MG TABS 1 tab po bid TOPIRAMATE 15716586960 Active Vishal Hui MD Active MINIPRESS 2 MG CAPS 1 cap po at night PRAZOSIN HCL 57549217678 Active Vishal Hui MD Active BACLOFEN 20 MG TABS 1 tab po tid BACLOFEN 10919272044 Active Vishal Hui MD Active ADVAIR DISKUS 250-50 MCG/DOSE AEPB 1 puff BID ADVAIR DISKUS 250-50 MCG/DOSE AEPB FLUTICASONE-SALMETEROL Inactive ESCITALOPRAM OXALATE 20 MG TABS 1 tab po qd ESCITALOPRAM OXALATE 20 MG TABS 625024 ESCITALOPRAM OXALATE Inactive ATENOLOL 25 MG TABS 1 tab po qd ATENOLOL 25 MG TABS 334915 ATENOLOL Inactive BENZTROPINE MESYLATE 1 MG TABS 1 tab po qd BENZTROPINE MESYLATE 1 MG TABS 816033 BENZTROPINE MESYLATE Inactive BUSPIRONE HCL 15 MG TABS 1 tab po TID BUSPIRONE HCL 15 MG TABS 850561 BUSPIRONE HCL Inactive LEVOFLOXACIN 500 MG TABS 1 tab po qd LEVOFLOXACIN 500 MG TABS 228662 LEVOFLOXACIN Inactive PREDNISONE 20 MG TABS 1 tab po qd PREDNISONE 20 MG TABS 390035 PREDNISONE Inactive MIRALAX POWD 1 capfull once daily MIRALAX POWD 102413 POLYETHYLENE GLYCOL 3350 Inactive VERAPAMIL HCL ER 180 MG CR-TABS 1 tab po bid VERAPAMIL HCL ER 180 MG CR-TABS VERAPAMIL HCL Inactive LORATADINE 10 MG TABS 1 tab po qd LORATADINE 10 MG TABS 689624 LORATADINE Inactive LYRICA 50 MG CAPS 1 tab po TID LYRICA 50 MG CAPS PREGABALIN Inactive ZALEPLON 10 MG CAPS 1 cap po every other night ZALEPLON 10 MG CAPS 627232 ZALEPLON Inactive SAPHRIS 5 MG SUBL 1 tab po qd SAPHRIS 5 MG SUBL ASENAPINE MALEATE Inactive TRAZODONE HCL 50 MG TABS 1/2 tab po qd prn for anxiety TRAZODONE HCL 50 MG TABS 917870 TRAZODONE HCL Inactive LATUDA 20 MG TABS Take one by mouth daily LATUDA 20 MG TABS LURASIDONE HCL Inactive LISINOPRIL 20 MG TABS 1 tab po qd LISINOPRIL 20 MG TABS 122747 LISINOPRIL Inactive SAPHRIS 10 MG SUBL 1 [...] twice a day CEFDINIR 300 MG CAPS 812288 CEFDINIR Inactive PREDNISONE 20 MG TAB 2 tabs daily for 3 days, 1 tab daily for 3 days, 1/2 tab daily for 2 days PREDNISONE 20 MG TAB 923256 PREDNISONE Inactive BACTRIM DS 800-160 MG TABS [...] Panel - Chemistry sodium, serum 141 mmol/L 285-598 8777 potassium, serum 4.3 mmol/L 3.5-5.2 chloride, serum [...] Panel - Chemistry sodium, serum 139 mmol/L 256-576 0974/12/31 potassium, serum 4.8 mmol/L 3.5-5.2 chloride, serum 106 mmol/L 98-107 carbon dioxide, venous blood 24.3 mmol/L 21.0-32.0 blood glucose 90 mg/dL 65-110 urea nitrogen, blood 16 mg/dL 7-18 creatinine, serum 1.00 mg/dL 0.60-1.30 alanine aminotransferase (SGPT), serum 41 U/L 12-78 aspartate aminotransferase (SGOT), serum 17 U/L 15-37 calcium, serum 8.6 mg/dL 8.5-10.1 bilirubin, serum, total 0.30 mg/dL 0.00-1.00 cholesterol, serum 108 mg/dL 811-208 9673/12/31 triglyceride, serum, fasting 120 mg/dL 30-200 HDL [...] Lab Report: [place] [facility] [place] protein, total [...] semiquantitative 7.0 5.0-8.5 Lab Report: Varicella-Zoater Inga IgG,IgM/02969, HEP Be Antibody/556, RUB ... - Serology rubella antibody, serum, IgG 2.88 Encounters Code Encounter Date Provider Facility CPT-38468 Level 3 Est. Patient 14:49:50 CDT Vishal Hiu MD [facility] CPT-17957 Level 4 Est. Patient 18:41:46 CDT Neeraj Collins MD [facility] CPT-23943 Level 4 Est. Patient 09:18:38 ASPHALT DISTRIBUTOR OPERATOR Vishal Hui MD [facility]-40084 Level 3 Est. Patient 14:43:55 ASPHALT DISTRIBUTOR OPERATOR Vishal Hui MD [facility] CPT-36082 Level 3 Est. Patient 15:26:33 ASPHALT DISTRIBUTOR OPERATOR Sahara Rodriguez MD PhD [facility]-68633 Level 3 Est. Patient 10:32:14 ASPHALT DISTRIBUTOR OPERATOR Vishal Hui MD [facility] CPT-98163 Level 3 Est. Patient 15:12:52 ASPHALT DISTRIBUTOR OPERATOR Vishal Hui MD [facility] CPT-05753 Level 4 Est. Patient 09:19:27 CDT Vishal Hui MD [facility] CPT-79580 Level 3 Est. Patient 15:53:00 CDT Renzo Thornton [facility] CPT-16680 Level 3 Est. Patient 15:50:30 CDT Renzo Thornton [facility] CPT-30570 Level 3 Est. Patient 16:55:24 CDT Vishal Hui MD [facility] Procedures Code Procedure Name Date Entry Date Standard Description CPT-11503 Sono transvag pelvis non OB uterus ovaries cervix 16:36: 57 CDT CPT-37789 LS spine comp w obliq 09:50:55 ASPHALT DISTRIBUTOR OPERATOR CPT-65618 Abd compl w upright 09:50:55 ASPHALT DISTRIBUTOR OPERATOR CPT-J1100 Decadron 4mg (Dexamethasone) 15:51:24 ASPHALT DISTRIBUTOR OPERATOR CPT-J1030 Depo Medrol 40 mg (Methyl Prednisolone Acetate) 15:51: 24 ASPHALT DISTRIBUTOR OPERATOR CPT-64254 Abx/Therapy Injection 15:51:24 ASPHALT DISTRIBUTOR OPERATOR CPT-J1100 Decadron 4mg (Dexamethasone) 15:26:33 ASPHALT DISTRIBUTOR OPERATOR CPT-J1030 Depo Medrol 40 mg (Methyl Prednisolone Acetate) 15:26: 33 ASPHALT DISTRIBUTOR OPERATOR CPT-23533 Sono retroperitoneal complete kidneys and bladder 17:15: 30 CDT CPT-83221 Abd compl w upright 16:09:25 CDT CPT-J1100 Decadron 8mg (Dexamethasone) 17:07:57 CDT CPT-67952 Abx/Therapy Injection 17:07:57 CDT CPT-J1100 Decadron 8mg (Dexamethasone) 16:55:24 CDT CPT-98981 Chest 2V Frontal and Lat 16:32:44 CDT
--- OUTSIDE RECORDS SUMMARY | 2016-11-04 14:00 | XMS REPORT ---
Author Author [facility] Blog [facility] Medical Staff Organization [facility] Address [address] [place], [place] [address] Phone [phone] Care Team Providers Care Lead Qa Analyst Name Role Phone TINO ABRAMS MD PP [phone] Summary purpose TRANSITION OF CARE AUTO GENERATION [...] diagnostic tests and/or laboratory data RESULTS Chemistry 34-66-842713:42:00 Result Normal Range Units Sodium 140 134-145 mEq/l Potassium 3.9 3.5-5.1 mEq/l Chloride 106 98-107 mEq/l CO2 22.7 22-28 mEq/l Glucose H 112 70-105 mg/dl BUN H 19 7-18 mg/dl Creatinine 0.94 0.6-1.0 mg/dl Calcium 8.4 8.4-10.2 mg/dl Osmolality 282.4 280-300 mOsm/L Anion GAP 11.3 8-16 BUN/Creatinine Ratio H 20.2 10-20 Estimated GFR 71 >=60 mL/min/1.7 Hematology 40-94-036065:42:00 Result Normal Range Units WBC 9.4 4.8-10.8 103/uL RBC L 4.0 4.2-5.4 106/uL HGB 12.2 12.0-16.0 g/dl HCT L 36.6 36.9-47.0 % MCV 90.8 81-99 FL MCH 30.3 27-31 pg MCHC 33.3 33-37 g/dl RDW 11.9 11.5-15.5 % PLT 336 130-400 103/uL MPV 9.7 7.3-10.4 FL Neutro % 49.5 40-70 % Lymph % 35.5 20-40 % [place] % H 11.0 0-10.0 % Eos % 3.0 0-7.0 % Baso % 0.5 0-2 % Neutro # 4.7 1.5-7.5 103/uL Lymph # 3.4 0.9-4.0 103/uL [place] # H 1.0 0-0.8 103/uL Eos # 0.3 0-0.6 103/uL Baso # 0.1 0-0.1 103/uL Radiology Results :42:00 Result Normal Range Units MPV 9.7 7.3-10.4 FL History of procedures No procedures recorded for this patient visit. Functional status Functional Status Finding Observation Time Abdomen Appearance round :25 Vick no :25 Urination normal :25 Quality sym/unlabored :25 Cough absent :25 Secretions no :25 Airway natural :25 Chest Tube no :25 Oxygen no :45 Temp >100.4 no : Temp <96.8 no :25 Chills with rigors no :25 HR > 90bpm yes : Respirations > 20 no :25 Systolic <90 no :25 headache stiff neck no :25 Rapid Resp no :25 IV Site Location left inner forearm :45 IV Type peripheral :45 IV Site Information existing :45 IV Site Start Attmpt 1 times [id number]:40 IV Site Festus 20 :45 IV Site Appearance WNL :45 IV Site Color clear :45 IV Site Patent yes :45 Dressing Type gauze Comment: covered in gauze over the occuclusive dressing :45 Nursing Note IV flushed and wrapped with gauze. Pt will return at 0600 for out pt infusion. :45 Vital signs Type Value Date Respiration Rate 20breaths per minute :45 Pulse 88beats per minute :45 Oxygen Saturation 98% :45 BP Systolic 117mmHg :45 BP Diastolic 88mmHg :45 Temperature 98.0F 23-01-692018:45 Height 64inches :01 Weight 274LB 03-13-822857:01 Social history Type Value Smoking Status FORMER SMOKER Treatment Plan No treatment plan text is available for this visit. Hospital discharge instructions Dismissal Condition good Disposition on DC home DC Inst/Educ Give yes Med/Side Effects Rev yes PNE Vac none Flu Vac 2013 Tetanus Vac unknown
--- OUTSIDE RECORDS SUMMARY | 2016-11-04 14:03 | XMS REPORT | Clinical Summary ---
Author Author Admin, E Organization [facility] Address Unknown Phone Unavailable Allergies, Adverse [...] of unspecified site Fatigue 780.79 Resolved Vishal Hiu MD Other malaise and fatigue Fatigue 780.79 [...] breath Nocturnal hypoxia 799.02 Active Fabiola Johnson MANAGER FASHION Hypoxemia Neck pain 723.1 Resolved Vishal Hui [...] day to help quit smoking VARENICLINE TARTRATE 39647193804 No Longer Active Dipika Burgos MD Active CHANTIX STARTING MONTH EARNEST 0.5 MG X 11 & 1 MG X 42 TABS take as directed 2015 VARENICLINE TARTRATE 41712065721 No Longer Active Dipika Burgos MD Active MONISTAT 7 COMBO PACK WOODROW 100 & 2 MG-% (9GM) VAG KIT 1 applicatorful per vagina q pm x 7 MICONAZOLE NITRATE 45156829604 Active Jillina Fradwightl MANAGER FASHION Active FLAGYL 500 MG TAB 1 tablet by mouth bid METRONIDAZOLE 35475824919 Active Jillina Frazell MANAGER FASHION Active TESSALON PERLES 100 MG CAP 1 to 2 tablets by mouth 3 times daily as needed for cough BENZONATATE 35381405557 No Longer Active Jillina Frazell MANAGER FASHION Active ABILIFY MAINTENA 400 MG IM SUSR 400mg injection every 26 days ARIPIPRAZOLE 69386619568 Active Silvia Ervinum TRAY FILLER Active IMITREX 50 MG ORAL TABS 0.5 po x 1 PRN Headache. May repeat dose x 1 in 2 hours if needed SUMATRIPTAN SUCCINATE 60578628996 Active Vishal Hui MD Active OXYCODONE HCL ER 10 MG ORAL T12A 1/2 tab by mouth every 4 hours prn OXYCODONE HCL 72325430681 Active Neeraj Collins MD Active METHYLPREDNISOLONE 4 MG ORAL TABS po daily METHYLPREDNISOLONE 85230647117 Active Vishal Hui MD Active LEVOFLOXACIN 500 MG ORAL TABS po daily LEVOFLOXACIN 70096429287 Active Vishal Hui MD Active HYDROCODONE-ACETAMINOPHEN 5-325 MG TABS 1 to 2 four times a day as needed for pain use until can be seen by specialist HYDROCODONE- ACETAMINOPHEN 20165603607 No Longer Active Vishal Hui MD Active PROAIR HFA 108 (90 BASE) MCG/ACT AERS 2 puffs four times a day as needed 2015 ALBUTEROL SULFATE 14951591799 No Longer Active Vishal Hui MD Active PREDNISONE 20 MG TABS 2 daily for 5 days then 1 daily for 5 days PREDNISONE 32491711162 No Longer Active Vishal Hui MD Active ZITHROMAX Z-EARNEST 250 MG TABS 2 today and then 1 daily for 4 days AZITHROMYCIN 52368775680 No Longer Active Vishal Hui MD Active DICLOFENAC SODIUM 50 MG TBEC 1 tablet by mouth four times daily PRN Pain 2015 DICLOFENAC SODIUM 54652643109 Active Vishal Hui MD Active DICLOFENAC POTASSIUM TABS Take 1 tablet twice a day (pt. is not sure of the dose.) DICLOFENAC POTASSIUM TABS 52041526928 No Longer Active Vishal Hui MD Active VERAPAMIL HCL ER 120 MG ORAL CR-TABS Take 1 tablet by mouth twice a day. VERAPAMIL HCL 90183409862 Active Vishal Hui MD Active FLAGYL 500 MG TAB 1 tablet by mouth bid METRONIDAZOLE 86707610151 No Longer Active Vishal Hui MD Active FLUTICASONE PROPIONATE 50 MCG/ACT SUSP 2 sprays each nostril daily before bed. FLUTICASONE PROPIONATE 87376032077 Active Fabiola Johnson APRN Active ADZENYS XR-ODT 6.3 MG ORAL TBED 1 tab po daily for ADHD AMPHETAMINE 10268781207 Active Fabiola Johnson APRN Active BENADRYL 25 MG CAP 4 po at bedtime for insomnia DIPHENHYDRAMINE HCL 66083322336 Active Fabiola Johnson APRN Active KLONOPIN 1 MG ORAL TABS 1 tab po TID CLONAZEPAM 98532619586 Active Fabiola Johnson APRN Active VALIUM 5 MG TAB Take 1-2 tablets daily DIAZEPAM 96190775736 No Longer Active Fabiola Johnson APRN Active METOPROLOL TARTRATE 25 MG ORAL TABS 1/2 tablet twice daily for heart rate and blood pressure METOPROLOL TARTRATE 77523506773 No Longer Active Fabiola Johnson APRN Active MIRALAX ORAL POWD 17GMS DAILY IN WATER POLYETHYLENE GLYCOL 3350 43785564098 Active Vishal Hui MD Active VIIBRYD 10 MG ORAL TABS Take 1 tablet once a day VILAZODONE HCL 69024382265 Active Ahmet Carbajal MD Active MIRALAX PACK 1 po qd PRN Constipation POLYETHYLENE GLYCOL 3350 68557487576 No Longer Active Ahmet Carbajal MD Active MINIPRESS 2 MG CAPS 4 cap po at night PRAZOSIN HCL 45040551898 No Longer Active Ahmet Carbajal MD Active PIROXICAM 20 MG CAPS 1 cap po qd PRN Pain PIROXICAM 20528993003 No Longer Active Ahmet Carbajal MD Active TRAMADOL HCL 50 MG TABS 1-2 po TID PRN Pain TRAMADOL HCL 10241256641 No Longer Active Ahmet Carbajal MD Active METOPROLOL TARTRATE 50 MG TAB 1 po bid METOPROLOL TARTRATE 14071951414 No Longer Active Ahmet Carbajal MD Active ABILIFY 15 MG ORAL TABS 1 tab daily ARIPIPRAZOLE 11255227071 No Longer Active Ahmet Carbajal MD Active PROZAC 20 MG ORAL CAPS 1 tab daily FLUOXETINE HCL 12655130175 No Longer Active Ahmet Carbajal MD Active AMBIEN 5 MG ORAL TABS 1 tab at bedtime ZOLPIDEM TARTRATE 60089555758 No Longer Active Ahmet Carbajal MD Active PREDNISONE 20 MG TAB 2 tabs daily for 4 days, 1 tab daily for 4 days, 1/2 tab daily for 4 days PREDNISONE 63605993597 No Longer Active Ahmet Carbajal MD Active KEFLEX 500 MG CAP 1 po TID x 10 days CEPHALEXIN 50577558080 No Longer Active iVshal Hui MD Active TOPAMAX 50 MG ORAL TABS 1 tab twice daily TOPIRAMATE 48024383001 Active Vishal Hui MD Active SAPHRIS 5 MG SUBL 1 po bid ASENAPINE MALEATE 42624616956 No Longer Active Luigi Martínez APRN Active LATUDA 80 MG TABS Take one by mouth daily LURASIDONE HCL 07873102679 No Longer Active Luigi Martínez APRN Active AMLODIPINE BESYLATE 5 MG TABS 1 tablet by mouth daily AMLODIPINE BESYLATE 62964445783 No Longer Active Luigi Martínez APRN Active AMITRIPTYLINE HCL 100 MG TAB one at hs AMITRIPTYLINE HCL 63648618520 No Longer Active Vishal Hui MD Active TRAZODONE HCL 100 MG TAB take 1 at bedtime TRAZODONE HCL 91395718611 No Longer Active Vishal Hui MD Active VYVANSE 40 MG CAPS 1 daily, LISDEXAMFETAMINE DIMESYLATE 78465063110 No Longer Active Vishal Hui MD Active IBUPROFEN 600 MG TAB 1 po TID PRN IBUPROFEN 82382911785 No Longer Active Vishal Hui MD Active PROZAC 20 MG CAP Take one by mouth daily FLUOXETINE HCL 86972689021 No Longer Active Vishal Hui MD Active ZOFRAN 4 MG TABS 1 po q6hr PRN Nausea ONDANSETRON HCL Active Vishal Hui MD Active BACTRIM DS 800-160 MG TABS 1 pill by mouth twice daily SULFAMETHOXAZOLE-TRIMETHOPRIM 99139863902 No Longer Active Sahara Rodriguez MD PhD Active DIFLUCAN 150 MG TAB 1 tablet by mouth daily FLUCONAZOLE 99255258484 No Longer Active Vishal Hui MD Active TIZANIDINE HCL 4 MG TABS 1 po q6hr PRN Muscle Spasm/Back Pain TIZANIDINE HCL 37139812065 Active Vishal Hui MD Active CLINDAMYCIN HCL 150 MG CAPS 1 four times a day CLINDAMYCIN HCL 95853994361 No Longer Active Neeraj Collins MD Active KEFLEX 500 MG ORAL CAPS 1 cap QID by mouth CEPHALEXIN 46424746362 No Longer Active Neeraj Collins MD Active DIFLUCAN 150 MG TABS 1 pill every other day x 2 doses FLUCONAZOLE 46823985768 No Longer Active Sahara Rodriguez MD PhD Active MELATONIN 3 MG CAPS 2 po q hs MELATONIN 38024062191 No Longer Active Sahara Rodriguez MD PhD Active MULTIVITAMINS CAPS Take one by mouth daily MULTIPLE VITAMIN 22796145925 No Longer Active Sahara Rodriguez MD PhD Active BACTRIM DS 800-160 MG TAB 1 tab by mouth twice daily TRIMETHOPRIM-SULFAMETHOXAZOLE 83606560469 No Longer Active Sahara Rodriguez MD PhD Active [facility] PROBIOTIC ORAL CHEW 2 daily po PROBIOTIC PRODUCT 24185922113 No Longer Active Sahara Rodriguez MD PhD Active BACTRIM DS 800-160 MG TABS 1 po BID x 7 days SULFAMETHOXAZOLE-TRIMETHOPRIM 43829222466 No Longer Active Vishal Hui MD Active CHANTIX STARTING MONTH EARNEST 0.5 MG X 11 & 1 MG X 42 TABS 0.5mg daily for 3 days , then 0.5mg BID for 4 days, then 1mg BID VARENICLINE TARTRATE 58798438867 No Longer Active TAMARA Gray Active VERAPAMIL HCL CR 120 MG TAB CR 1 po bid VERAPAMIL HCL 04830404884 No Longer Active Vishal Hui MD Active METOPROLOL SUCCINATE 50 MG TB24 1 tablet by mouth daily METOPROLOL SUCCINATE 77218884714 No Longer Active Vishal Hui MD Active SAPHRIS 10 MG SUBL 1 tab po bid ASENAPINE MALEATE 07453492076 No Longer Active Vishal Hui MD Active LISINOPRIL 20 MG TABS 1 tab po qd LISINOPRIL 80904130955 No Longer Active Vihsal Hui MD Active LATUDA 20 MG TABS Take one by mouth daily LURASIDONE HCL 26326523877 No Longer Active Vishal Hui MD Active TRAZODONE HCL 50 MG TABS 1/2 tab po qd prn for anxiety TRAZODONE HCL 98674081717 No Longer Active Vishal Hui MD Active OMEPRAZOLE 20 MG TBEC 1 po q a.m. 30min prior to first food intake OMEPRAZOLE 76167537869 Active Vishal Hui MD Active RANITIDINE HCL 150 MG CAPS 1 twice a day RANITIDINE HCL 96464995424 Active Jillina Messizelephraim MANAGER FASHION Active LINZESS 290 MCG CAPS Take one by mouth daily LINACLOTIDE 12722344008 No Longer Active Vishal Hui MD Active SAPHRIS 5 MG SUBL 1 tab po qd ASENAPINE MALEATE 09898094491 No Longer Active Vishal Hui MD Active ZALEPLON 10 MG CAPS 1 cap po every other night ZALEPLON 14318307195 No Longer Active Vishal Hui MD Active LYRICA 50 MG CAPS 1 tab po TID PREGABALIN 76506947597 No Longer Active Vishal Hui MD Active LORATADINE 10 MG TABS 1 tab po qd LORATADINE 86925549386 No Longer Active Vishal Hui MD Active VERAPAMIL HCL ER 180 MG CR-TABS 1 tab po bid VERAPAMIL HCL 24063956237 No Longer Active Vishal Hui MD Active MIRALAX POWD 1 capfull once daily POLYETHYLENE GLYCOL 3350 91304763694 No Longer Active Vishal Hui MD Active PREDNISONE 20 MG TABS 1 tab po qd PREDNISONE 73269991110 No Longer Active Renzo Thornton DO Active LEVOFLOXACIN 500 MG TABS 1 tab po qd LEVOFLOXACIN 07126104498 No Longer Active Renzo Thornton DO Active BUSPIRONE HCL 15 MG TABS 1 tab po TID BUSPIRONE HCL 58603400223 No Longer Active Renzo Thornton DO Active BENZTROPINE MESYLATE 1 MG TABS 1 tab po qd BENZTROPINE MESYLATE 85430063810 No Longer Active Renzo Thornton DO Active ATENOLOL 25 MG TABS 1 tab po qd ATENOLOL 60258704128 No Longer Active Renzo Thornton DO Active ESCITALOPRAM OXALATE 20 MG TABS 1 tab po qd ESCITALOPRAM OXALATE 24427172833 No Longer Active Renzo Thornton DO Active ADVAIR DISKUS 250-50 MCG/DOSE AEPB 1 puff BID FLUTICASONE-SALMETEROL 63726787235 No Longer Active Renzo Thornton DO Active PREDNISONE 20 MG TAB 2 tabs daily for 3 days, 1 tab daily for 3 days, 1/2 tab daily for 2 days PREDNISONE 01337724032 No Longer Active Vishal Hui MD Active CEFDINIR 300 MG CAPS by mouth twice a day CEFDINIR 26183621407 No Longer Active Vishal Hui MD Active LANSOPRAZOLE 30 MG CPDR 1 cap po qd LANSOPRAZOLE 53692133099 No Longer Active Vishal Hui MD Active BACLOFEN 20 MG TABS 1 tab po tid BACLOFEN 26283734447 No Longer Active Vishal Hui MD Active ADVAIR DISKUS 250-50 MCG/DOSE AEPB 1 puff BID ADVAIR DISKUS 250-50 MCG/DOSE AEPB FLUTICASONE-SALMETEROL Inactive ESCITALOPRAM OXALATE 20 MG TABS 1 tab po qd ESCITALOPRAM OXALATE 20 MG TABS 811691 ESCITALOPRAM OXALATE Inactive ATENOLOL 25 MG TABS 1 tab po qd ATENOLOL 25 MG TABS 055510 ATENOLOL Inactive BENZTROPINE MESYLATE 1 MG TABS 1 tab po qd BENZTROPINE MESYLATE 1 MG TABS 223009 BENZTROPINE MESYLATE Inactive BUSPIRONE HCL 15 MG TABS 1 tab po TID BUSPIRONE HCL 15 MG TABS 034784 BUSPIRONE HCL Inactive LEVOFLOXACIN 500 MG TABS 1 tab po qd LEVOFLOXACIN 500 MG TABS 982952 LEVOFLOXACIN Inactive PREDNISONE 20 MG TABS 1 tab po qd PREDNISONE 20 MG TABS 002552 PREDNISONE Inactive MIRALAX POWD 1 capfull once daily MIRALAX POWD 937928 POLYETHYLENE GLYCOL 3350 Inactive VERAPAMIL HCL ER 180 MG CR-TABS 1 tab po bid VERAPAMIL HCL ER 180 MG CR-TABS VERAPAMIL HCL Inactive LORATADINE 10 MG TABS 1 tab po qd LORATADINE 10 MG TABS 567515 LORATADINE Inactive LYRICA 50 MG CAPS 1 tab po TID LYRICA 50 MG CAPS PREGABALIN Inactive ZALEPLON 10 MG CAPS 1 cap po every other night ZALEPLON 10 MG CAPS 842589 ZALEPLON Inactive SAPHRIS 5 MG SUBL 1 tab po qd SAPHRIS 5 MG SUBL ASENAPINE MALEATE Inactive TRAZODONE HCL 50 MG TABS 1/2 tab po qd prn for anxiety TRAZODONE HCL 50 MG TABS 396571 TRAZODONE HCL Inactive LATUDA 20 MG TABS Take one by mouth daily LATUDA 20 MG TABS LURASIDONE HCL Inactive LISINOPRIL 20 MG TABS 1 tab po qd LISINOPRIL 20 MG TABS 638545 LISINOPRIL Inactive SAPHRIS 10 MG SUBL 1 [...] twice daily BACTRIM DS 800-160 MG TAB 505088 TRIMETHOPRIM-SULFAMETHOXAZOLE Inactive MULTIVITAMINS CAPS Take one by mouth daily MULTIVITAMINS CAPS MULTIPLE VITAMIN Inactive MELATONIN 3 MG CAPS 2 po q hs MELATONIN 3 MG CAPS 081089 MELATONIN Inactive KEFLEX 500 MG ORAL CAPS 1 cap QID by mouth KEFLEX 500 MG ORAL CAPS 270694 CEPHALEXIN Inactive CLINDAMYCIN HCL 150 MG CAPS 1 four times a day CLINDAMYCIN HCL 150 MG CAPS 215251 CLINDAMYCIN HCL Inactive DIFLUCAN 150 MG TAB 1 tablet by mouth daily DIFLUCAN 150 MG TAB 694904 FLUCONAZOLE Inactive PROZAC 20 MG CAP Take one by mouth daily PROZAC 20 MG CAP 486573 FLUOXETINE HCL Inactive IBUPROFEN 600 MG TAB 1 po TID PRN IBUPROFEN 600 MG TAB 107650 IBUPROFEN Inactive VYVANSE 40 MG CAPS 1 daily, VYVANSE 40 MG CAPS LISDEXAMFETAMINE DIMESYLATE Inactive TRAZODONE HCL 100 MG TAB take 1 at bedtime TRAZODONE HCL 100 MG TAB 178908 TRAZODONE HCL Inactive AMITRIPTYLINE HCL 100 MG TAB one at hs AMITRIPTYLINE HCL 100 MG TAB 626796 AMITRIPTYLINE HCL Inactive AMLODIPINE BESYLATE 5 MG TABS 1 tablet by mouth daily AMLODIPINE BESYLATE 5 MG TABS 625202 AMLODIPINE BESYLATE Inactive LATUDA 80 MG TABS Take one by mouth daily LATUDA 80 MG TABS LURASIDONE HCL Inactive SAPHRIS 5 MG SUBL 1 po bid SAPHRIS 5 MG SUBL ASENAPINE MALEATE Inactive PREDNISONE 20 MG TAB 2 tabs daily for 4 days, 1 tab daily for 4 days, 1/2 tab daily for 4 days PREDNISONE 20 MG TAB 083873 PREDNISONE Inactive AMBIEN 5 MG ORAL TABS 1 tab at bedtime AMBIEN 5 MG ORAL TABS 623328 ZOLPIDEM TARTRATE Inactive PROZAC 20 MG ORAL CAPS 1 tab daily PROZAC 20 MG ORAL CAPS 143298 FLUOXETINE HCL Inactive ABILIFY 15 MG ORAL TABS 1 tab daily ABILIFY 15 MG ORAL TABS 811283 ARIPIPRAZOLE Inactive METOPROLOL TARTRATE 50 MG TAB 1 po bid METOPROLOL TARTRATE 50 MG TAB 374362 METOPROLOL TARTRATE Inactive TRAMADOL HCL 50 MG TABS 1-2 po TID PRN Pain TRAMADOL HCL 50 MG TABS 469909 TRAMADOL HCL Inactive PIROXICAM 20 MG CAPS 1 cap po qd PRN Pain PIROXICAM 20 MG CAPS 305965 PIROXICAM Inactive MINIPRESS 2 MG CAPS 4 cap po at night MINIPRESS 2 MG CAPS 882016 PRAZOSIN HCL Inactive MIRALAX PACK 1 po qd PRN Constipation MIRALAX PACK 506013 POLYETHYLENE GLYCOL 3350 Inactive METOPROLOL TARTRATE 25 MG ORAL TABS 1/2 tablet twice daily for heart rate and blood pressure METOPROLOL TARTRATE 25 MG ORAL TABS 857489 METOPROLOL TARTRATE Inactive VALIUM 5 MG TAB Take 1-2 tablets daily VALIUM 5 MG TAB 346403 DIAZEPAM Inactive FLAGYL 500 MG TAB 1 tablet by mouth bid FLAGYL 500 MG TAB 357067 METRONIDAZOLE Inactive DICLOFENAC POTASSIUM TABS Take 1 tablet twice a day (pt. is not sure of the dose.) DICLOFENAC POTASSIUM TABS DICLOFENAC POTASSIUM TABS Inactive ZITHROMAX Z-EARNEST 250 MG TABS 2 today and then 1 daily for 4 days ZITHROMAX Z-EARNEST 250 MG TABS 0629690 AZITHROMYCIN Inactive PREDNISONE 20 MG TABS 2 daily for 5 days then 1 daily for 5 days PREDNISONE 20 MG TABS 220461 PREDNISONE Inactive PROAIR HFA 108 (90 BASE) MCG/ACT AERS 2 puffs four times a day as needed 2015 PROAIR HFA 108 (90 BASE) MCG/ACT AERS ALBUTEROL SULFATE Inactive HYDROCODONE-ACETAMINOPHEN 5-325 MG TABS 1 to 2 four times a day as needed for pain use until can be seen by specialist HYDROCODONE- ACETAMINOPHEN 5-325 MG TABS 533714 HYDROCODONE-ACETAMINOPHEN Inactive TESSALON PERLES 100 MG CAP 1 to 2 tablets by mouth 3 times daily as needed for cough TESSALON PERLES 100 MG CAP 259895 BENZONATATE Inactive CHANTIX STARTING MONTH EARNEST 0.5 MG X 11 & 1 MG X 42 TABS take as directed 2015 CHANTIX STARTING MONTH EANREST 0.5 MG X 11 & 1 MG X 42 TABS VARENICLINE TARTRATE Inactive CHANTIX 1 MG TABS 1 twice a day to help quit smoking CHANTIX 1 MG TABS VARENICLINE TARTRATE Inactive CEFDINIR 300 MG CAPS by mouth twice a day CEFDINIR 300 MG CAPS 450335 CEFDINIR Inactive PREDNISONE 20 MG TAB 2 tabs daily for 3 days, 1 tab daily for 3 days, 1/2 tab daily for 2 days PREDNISONE 20 MG TAB 307896 PREDNISONE Inactive BACTRIM DS 800-160 MG TABS [...] x 10 days KEFLEX 500 MG CAP 331323 CEPHALEXIN Inactive Advance Directives Directive Description Start [...] % 11.6-14.8 platelet count 394 10^3/MM^3 10*3/mm3 498-395 0043/01/11 leukocyte count, blood 13.8 10^3/MM^3 10*3/mm3 4.6-10.2 [...] Panel - Chemistry sodium, serum 139 mmol/L 761-903 2284/12/03 carbon dioxide, venous blood 28.5 mmol/L 21.0-32.0 [...] 5.5 % 4.3-6.0 cholesterol, serum 159 mg/dL 910-838 1356/12/03 triglyceride, serum, fasting 118 mg/dL 30-200 HDL [...] 362 10^3/MM^3 10*3/mm3 142-424 Lab Report: Chlamydia/GC APTIMA/90887 - Lab chlamydia DNA probe NOT DETECTED NOT DETECTED Lab Report: Chlamydia/GC APTIMA/50843 - Microbiology Neisseria gonorrhoeae DNA probe NOT DETECTED NOT DETECTED Lab Report: Comp. Metabolic Panel - Chemistry sodium, serum 140 mmol/L 221-101 2867/08/08 carbon dioxide, venous blood 33.7 mmol/L 21.0-32.0 potassium, serum 5.0 mmol/L 3.5-5.2 chloride, serum 103 mmol/L 98-107 blood glucose 80 mg/dL 65-110 urea nitrogen, blood 13 mg/dL 7-18 creatinine, serum 0.88 mg/dL 0.55-1.30 alanine aminotransferase (SGPT), serum 54 U/L -78 aspartate aminotransferase (SGOT), serum 29 U/L 15-37 calcium, serum 9.7 mg/dL 8.5-10.1 bilirubin, serum, total 0.30 mg/dL 0.00-1.00 sodium, serum 139 mmol/L 316-613 6301/12/22 carbon dioxide, venous blood 26.8 mmol/L 21.0-32.0 potassium, serum 4.2 mmol/L 3.5-5.2 chloride, serum 103 mmol/L 98-107 blood glucose 115 mg/dL 65-110 urea nitrogen, blood 20 mg/dL 7-18 creatinine, serum 0.90 mg/dL 0.55-1.30 alanine aminotransferase (SGPT), serum 38 U/L aspartate aminotransferase (SGOT), serum 19 U/L 15-37 calcium, serum 8.6 mg/dL 8.5-10.1 bilirubin, serum, total 0.30 mg/dL 0.00-1.00 sodium, serum 139 mmol/L 664-922 2340/01/11 carbon dioxide, venous blood 26.6 mmol/L 21.0-32.0 potassium, serum 4.1 mmol/L 3.5-5.2 chloride, serum 100 mmol/L 98-107 blood glucose 86 mg/dL 65-110 urea nitrogen, blood 16 mg/dL 7-18 creatinine, serum 1.00 mg/dL 0.55-1.30 alanine aminotransferase (SGPT), serum 48 U/L aspartate aminotransferase (SGOT), serum 17 U/L 15-37 calcium, serum 9.1 mg/dL 8.5-10.1 bilirubin, serum, total 0.40 mg/dL 0.00-1.00 sodium, serum 142 mmol/L 034-520 9153/06/08 carbon dioxide, venous blood 27.6 mmol/L 21.0-32.0 [...] Rate - Chemistry sodium, serum 139 mmol/L 020-363 8224/12/11 carbon dioxide, venous blood 25.4 mmol/L 21.0-32.0 [...] mg/dL Encounters Code Encounter Date Provider Facility CPT-46700 Level 3 Est. Patient 13:59:59 CDT Luigi Martínez [facility] CPT-54851 Level 3 Est. Patient 18:18:53 CDT Neeraj Collins MD [facility] CPT-39887 Level 3 Est. Patient 15:50:44 CDT Vishal Hui MD [facility] CPT-56296 Level 3 Est. Patient 11:36:17 CDT Ahmet Carbajal MD [facility] CPT-35070 Level 3 Est. Patient 13:29:16 CDT Vishal Hui MD [facility] CPT-45355 Level 3 Est. Patient 14:27:52 CDT Neeraj Collins MD [facility] CPT-94497 Level 3 Est. Patient 08:56:03 CDT Luigi Martínez [facility] CPT-34361 Level 4 Est. Patient 12:11:48 CDT Fabiola Johnson [facility] CPT-73433 Level 3 New Patient 16:53:37 CDT Albert Caldera MD [facility] CPT-38687 Level 3 Est. Patient 11:25:49 CDT Renzo Thornton DO [facility] CPT-85802 Level 3 Est. Patient 15:22:01 CDT Ahmet Carbajal MD [facility] CPT-69553 Level 4 Est. Patient 09:00:51 SOLUTION ARCHITECT Vishal Hui MD [facility] CPT-10406 Level 3 Est. Patient 11:37:33 SOLUTION ARCHITECT Vishal Hui MD [facility] CPT-71834 Level 3 Est. Patient 08:41:09 SOLUTION ARCHITECT Vishal Hui MD [facility] CPT-41081 Level 4 Est. Patient 10:19:35 SOLUTION ARCHITECT Vishal Hui MD [facility] CPT-09912 Level 3 Est. Patient 13:35:45 CDT Vishal Hui MD [facility] CPT-80127 Level 4 Est. Patient 10:08:37 CDT Vishal Hui MD [facility] CPT-41818 Level 3 Est. Patient 11:22:10 CDT Vishal Hui MD [facility] CPT-05916 Level 3 Est. Patient 11:03:32 CDT Sahara Rodriguez MD [facility]-93774 Level 3 Est. Patient 09:41:35 CDT Vishal Hui MD [facility]-10372 Level 3 Est. Patient 12:00:41 CDT Neeraj Collins MD [facility]-73208 Level 3 Est. Patient 09:16:24 CDT Vishal Hui MD [facility] CPT-43035 Level 4 Est. Patient 13:59:09 CDT Neeraj Collins MD [facility] CPT-71999 Level 3 Est. Patient 15:19:43 CDT Renzo Thornton DO [facility] CPT-17436 Level 3 Est. Patient 18:10:26 CDT Sahara Rodriguez MD [facility]-14566 Level 3 Est. Patient 14:49:50 CDT Vishal Hui MD [facility] CPT-79912 Level 4 Est. Patient 18:41:46 CDT Neeraj Collins MD [facility] CPT-71593 Level 4 Est. Patient 09:18:38 SOLUTION ARCHITECT Vishal Hui MD [facility]-94496 Level 3 Est. Patient 14:43:55 SOLUTION ARCHITECT Vishal Hui MD [facility] CPT-73481 Level 3 Est. Patient 15:26:33 SOLUTION ARCHITECT Sahara Rodriguez MD [facility]41624 Level 3 Est. Patient 10:32:14 SOLUTION ARCHITECT Vishal Hui MD [facility] CPT-08497 Level 3 Est. Patient 15:12:52 SOLUTION ARCHITECT Vishal Hui MD [facility] CPT-44139 Level 4 Est. Patient 09:19:27 CDT Vishal Hui MD [facility] CPT-96534 Level 3 Est. Patient 15:53:00 CDT Renzo Thornton [facility] CPT-05141 Level 3 Est. Patient 15:50:30 CDT Renzo Thornton [facility] CPT-04784 Level 3 Est. Patient 16:55:24 CDT Vishal Hui MD [facility] Procedures Code Procedure Name Date Entry Date Standard Description CPT-49283 Nexplanon Removal with Reinsertion 14:09:32 CDT CPT-J7307 Nexplanon (Implant) 14:09:32 CDT CPT-OV Office Visit 14:09:32 CDT CPT-47755 UA w micro - LAB USE ONLY 16:21:13 CDT CPT-38987 Wet Mount - LAB USE ONLY 16:21:13 CDT CPT-27283 First Vx - Ix admin for Medicare patients 14:37:47 CDT CPT-78981 Fluzone Preservative Free Intramuscular Suspension 14:37 :47 CDT CPT-75153 Abx/Therapy Injection 13:54:22 CDT CPT-00250 Abx/Therapy Injection 08:47:09 CDT CPT-31300 Abx/Therapy Injection 13:29:56 CDT CPT-97469 Abx/Therapy Injection 08:36:16 CDT CPT-82444 Wet Mount - LAB USE ONLY 17:44:58 CDT CPT-54543 UA w micro - LAB USE ONLY 17:44:58 CDT CPT-87007 CMP - LAB USE ONLY 17:44:58 CDT CPT-47369 Venipuncture Draw Fee 17:44:58 CDT CPT-03027 Cervical Min 4V - XRAY USE ONLY 09:01:40 CDT CPT-49923 Chest 2V Frontal and Lat - XRAY USE ONLY 11:06:31 CDT CPT-34847 EKG Trac and Interp - XRAY USE ONLY 11:31:43 CDT 08/26 CPT-J3420 Vitamin B12 1000mcg (Cyanocobalamin) 08:10:26 SOLUTION ARCHITECT 04/12 CPT-04975 Abx/Therapy Injection 08:10:26 SOLUTION ARCHITECT CPT-G0438 Initial Annual Wellness Exam 19:01:01 SOLUTION ARCHITECT CPT-J3420 Vitamin B12 1000mcg (Cyanocobalamin) 16:57:46 CDT 08/14 CPT-07091 Recombivax HB Injection Suspension 5 MCG/0.5ML 08:37:50 SOLUTION ARCHITECT CPT-73380 Immunization Single Admin 08:37:50 SOLUTION ARCHITECT CPT-J3420 Vitamin B12 1000mcg (Cyanocobalamin) 08:32:16 SOLUTION ARCHITECT 03/11 CPT-31057 Abx/Therapy Injection 08:32:16 SOLUTION ARCHITECT CPT-73311 Chest 2V Frontal and Lat 11:46:38 SOLUTION ARCHITECT CPT-09849 Venipuncture Draw Fee 09:12:45 SOLUTION ARCHITECT CPT-J3420 Vitamin B12 1000mcg (Cyanocobalamin) 08:50:15 SOLUTION ARCHITECT 02/08 CPT-87449 Abx/Therapy Injection 08:50:15 SOLUTION ARCHITECT CPT-Cryo Cryotherapy 10:19:35 SOLUTION ARCHITECT CPT-000 Give Appropriate Flu Vaccine 09:22:16 CDT CPT-J3420 Vitamin B12 1000mcg (Cyanocobalamin) 19:08:57 CDT 01/11 CPT-03506 Abx/Therapy Injection 19:08:57 CDT CPT-J3420 Vitamin B12 1000mcg (Cyanocobalamin) 08:19:08 CDT 12/11 CPT-93263 Abx/Therapy Injection 08:19:08 CDT CPT-J3420 Vitamin B12 1000mcg (Cyanocobalamin) 14:48:00 CDT 11/09 CPT-16316 Abx/Therapy Injection 14:47:59 CDT CPT-J3420 Vitamin B12 1000mcg (Cyanocobalamin) 08:34:04 CDT 10/09 CPT-28619 Abx/Therapy Injection 08:34:04 CDT CPT-J3420 Vitamin B12 1000mcg (Cyanocobalamin) 09:18:52 CDT 09/11 CPT-61936 Abx/Therapy Injection 09:18:52 CDT CPT-J3420 Vitamin B12 1000mcg (Cyanocobalamin) 08:35:44 CDT 09/04 CPT-93107 Abx/Therapy Injection 08:35:44 CDT CPT-19538 Immunization Single Admin 11:07:16 CDT CPT-00503 Hepatitis B adult IM 11:07:16 CDT CPT-J3420 Vitamin B12 1000mcg (Cyanocobalamin) 11:00:49 CDT 08/28 CPT-J1040 Depo Medrol 80 mg (Methyl Prednisolone Acetate) 11:00: 49 CDT CPT-31548 Abx/Therapy Injection 11:00:49 CDT CPT-J1040 Depo Medrol 80 mg (Methyl Prednisolone Acetate) 09:16: 23 CDT CPT-J3420 Vitamin B12 1000mcg (Cyanocobalamin) 08:27:05 CDT 08/20 CPT-02774 Abx/Therapy Injection 08:27:05 CDT CPT-09114 Recombivax HB Injection Suspension 5 MCG/0.5ML 10:00:41 CDT CPT-68203 Administration single or combination vaccine inc oral 10 :00:41 CDT CPT-79869 Sono transvag pelvis non OB uterus ovaries cervix 16:36: 57 CDT CPT-62918 LS spine comp w obliq 09:50:55 SOLUTION ARCHITECT CPT-26612 Abd compl w upright 09:50:55 SOLUTION ARCHITECT CPT-J1100 Decadron 4mg (Dexamethasone) 15:51:24 SOLUTION ARCHITECT CPT-J1030 Depo Medrol 40 mg (Methyl Prednisolone Acetate) 15:51: 24 SOLUTION ARCHITECT CPT-27263 Abx/Therapy Injection 15:51:24 SOLUTION ARCHITECT CPT-J1100 Decadron 4mg (Dexamethasone) 15:26:33 SOLUTION ARCHITECT CPT-J1030 Depo Medrol 40 mg (Methyl Prednisolone Acetate) 15:26: 33 SOLUTION ARCHITECT CPT-20708 Sono retroperitoneal complete kidneys and bladder 17:15: 30 CDT CPT-53445 Abd compl w upright 16:09:25 CDT CPT-J1100 Decadron 8mg (Dexamethasone) 17:07:57 CDT CPT-51619 Abx/Therapy Injection 17:07:57 CDT CPT-J1100 Decadron 8mg (Dexamethasone) 16:55:24 CDT CPT-27680 Chest 2V Frontal and Lat 16:32:44 CDT
--- OUTSIDE RECORDS SUMMARY | 2016-11-04 14:06 | XMS REPORT | Clinical Summary ---
Author Author Admin, [facility] Organization [facility] [place] Address Unknown Phone Unavailable Allergies, Adverse Reactions, [...] disorder, unspecified Irritable bowel syndrome 564.1 Inactive Vsihal Hui MD Irritable bowel syndrome Irritable bowel syndrome with constipation 564.1 Active Suzan Boo APRN Irritable bowel syndrome Low back pain, chronic 724.2 Inactive Vishal Hui MD Lumbago Back pain, lumbar, with radiculopathy 724.4 Active Vishal Hui MD Thoracic or lumbosacral neuritis or radiculitis, unspecified Obstructive sleep apnea 327.23 Active Vishal Hiu MD Obstructive sleep apnea (adult) (pediatric) Smoker/tobacco [...] Ahmet Carbajal MD Generalized anxiety disorder 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 Suzan [...] Abdominal pain, right upper quadrant 789.01 Resolved Szuan Boo APRN Abdominal pain, right upper [...] MD Shortness of breath ICD-786.05 Inactive Vishal uHi MD Nocturnal hypoxia ICD-799.02 Inactive Suzan Boo APRN Neck pain ICD-723.1 Inactive Vishal Hui MD Vaginal discharge ICD-623.5 Inactive Vishal Hui MD Abdominal pain, right lower quadrant ICD-789.03 Inactive Vishal Hui MD Calf pain, left ICD-729.5 Inactive Vishal Hui MD Asthma, acute ICD-493.92 Inactive Vishal Hui MD Upper respiratory infection ICD-465.9 Inactive Suzan Boo CRYPTOLOGIC SUPERVISOR Other fracture of upper and lower end [...] Bronchitis, acute ICD-466.0 Inactive Ahmet Carbajal MD 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 ICD-V72.31 Inactive Suzan Rajeev CRYPTOLOGIC SUPERVISOR Bronchitis, acute with mild bronchospasm ICD-466.0 Inactive Suzan Rajeev CRYPTOLOGIC SUPERVISOR Tracheitis ICD-464.10 Inactive Suzan Boo CRYPTOLOGIC SUPERVISOR Impetigo ICD-684 Inactive Suzan Boo CRYPTOLOGIC SUPERVISOR Furuncle of buttock ICD-680.5 Inactive Suzan Boo CRYPTOLOGIC SUPERVISOR Vaginal irritation ICD-623.9 Inactive Suzan Boo CRYPTOLOGIC SUPERVISOR Scalding pain on urination ICD-788.1 Inactive Suzan Boo CRYPTOLOGIC SUPERVISOR Abdominal pain, right upper quadrant ICD-789.01 Inactive Suzan Boo CRYPTOLOGIC SUPERVISOR Dark urine ICD-791.9 Inactive Suzan Boo CRYPTOLOGIC SUPERVISOR Preop exam ICD-V72.84 Inactive Suzan Rajeev CRYPTOLOGIC SUPERVISOR Medication List Medication Instructions Start Date Stop Date Generic Name ND Status Provider Patient Instruction NYSTATIN [id number] UNIT/GM CREA apply three times a day to yeast rash NYSTATIN [id number] Active Suzan Boo APRN Active AMITIZA 24 MCG ORAL CAPS one capsule twice daily LUBIPROSTONE 97633253210 Active Suzan Boo APRN Active MIRALAX ORAL POWD 17GMS DAILY IN WATER POLYETHYLENE GLYCOL 3350 71019482819 No Longer Active Suzan Boo APRN Active LACTULOSE 10 GM/15ML ORAL SOLN 30mL oral BID for IBS-C LACTULOSE 21482470101 No Longer Active Suzan Boo APRN Active BACTRIM DS 800-160 MG TAB Take one (1) tablet by mouth twice a day for 5 days TRIMETHOPRIM-SULFAMETHOXAZOLE 35812918351 No Longer Active Suzan Boo APRN Active MUPIROCIN 2 % OINT apply twice a day MUPIROCIN 95054796732 No Longer Active Suzan Boo APRN Active BACTRIM DS 800-160 MG TABS 1 twice a day SULFAMETHOXAZOLE-TRIMETHOPRIM 32752668786 No Longer Active Suzan Boo APRN Active DIFLUCAN 150 MG TABS 1 by mouth for yeast FLUCONAZOLE 56709485100 No Longer Active Suzan Boo APRN Active LINZESS 290 MCG ORAL CAPS 1 tab 30 min prior to first meal each day. LINACLOTIDE 02014970752 No Longer Active Sheila Calderon LPN Active AMITIZA 8 MCG ORAL CAPS 1 tab BID LUBIPROSTONE 50168188688 No Longer Active Lynda Xiao LPN Active TESSALON PERLES 100 MG CAPS 1 three times a day as needed for cough BENZONATATE 12033390910 No Longer Active Suzan Boo APRN Active BACTRIM DS 800-160 MG TABS 1 twice a day SULFAMETHOXAZOLE-TRIMETHOPRIM 45450476435 No Longer Active Suzan Boo APRN Active DIFLUCAN 150 MG TABS 1 by mouth for yeast FLUCONAZOLE 55191323463 No Longer Active Suzan Boo APRN Active EQ NICOTINE 21 MG/24HR TRANS PT24 Apply daily to stop smoking NICOTINE 94287154764 No Longer Active Suzan Boo APRN Active PREDNISONE 10 MG TABS 2 daily for 5 days then 1 daily for 5 days PREDNISONE 04141336527 No Longer Active Suzan Boo APRN Active LEVAQUIN 500 MG TABS 1 daily for infection LEVOFLOXACIN 19313195919 No Longer Active Suzan Boo APRN Active TROPICAMIDE 0.5 % OPHTH SOLN 1 drop PRN eye spasms TROPICAMIDE 35927600740 No Longer Active Suzan Boo APRN Active PREDNISONE 20 MG TAB 1 tablet daily x 4 days PREDNISONE 13101111259 No Longer Active Suzan Boo APRN Active ACETAMINOPHEN-CODEINE 120-12 MG/5ML SOLN 5 ml by mouth every 4-6 hours if needed for cough ACETAMINOPHEN-CODEINE 35606343452 No Longer Active Suzan Boo APRN Active KEFLEX 500 MG CAP 1 po qid CEPHALEXIN 35856020755 No Longer Active Suzan Boo APRN Active FLOVENT HFA 110 MCG/ACT AERO 2 puffs inhaled b.i.d. FLUTICASONE PROPIONATE HFA 99459428094 Active Renzo Thornton DO Active RISPERDAL 4 MG ORAL TABS 1 tab at bedtime RISPERIDONE 51969799243 Active Samantha Rothman RMA Active ZOFRAN 4 MG TABS 1 po q6hr PRN Nausea ONDANSETRON HCL No Longer Active Suzan Boo APRN Active FLUTICASONE PROPIONATE 50 MCG/ACT SUSP 2 sprays each nostril daily before bed. FLUTICASONE PROPIONATE 09767303644 No Longer Active Suzan Boo APRN Active ASPIRIN 325 MG ORAL TABS 1 tab q.d ASPIRIN 07204124935 No Longer Active Suzan Boo APRN Active HALOPERIDOL 10 MG ORAL TABS 1 tab q.d HALOPERIDOL 59435956636 No Longer Active Suzan Boo APRN Active GUAIFENESIN-CODEINE 100-10 MG/5ML SYRP 5ml every 4 to 6 hours as needed for cough GUAIFENESIN-CODEINE 77987023859 No Longer Active Suzan Boo APRN Active ZITHROMAX Z-EARNEST 250 MG TABS 2 today and then 1 daily for 4 days AZITHROMYCIN 91205875952 No Longer Active Suzan Boo APRN Active CLONAZEPAM 1 MG ORAL TABS 1 twice a day and an additional 1 tablet every other day as needed for pseudoseizures or anxiety CLONAZEPAM 50752612619 Active Suzan Boo APRN Active HYDROCODONE-ACETAMINOPHEN 5-325 MG ORAL TABS 1 tab two times a day HYDROCODONE-ACETAMINOPHEN 61501361351 No Longer Active Ahmet Carbajal MD Active LAMICTAL 100 MG ORAL TABS 1 tab 2 times qd. LAMOTRIGINE 68734110820 Active Ahmet Carbajal MD Active PREDNISONE 20 MG TABS 2 daily for 5 days then 1 daily for 5 days PREDNISONE 94123735909 No Longer Active Ahmet Carbajal MD Active FLUTICASONE PROPIONATE 50 MCG/ACT SUSP 1 to 2 sprays each nostril daily for allergies FLUTICASONE PROPIONATE 88969414543 Active Tila Valenzuela Active BENADRYL 25 MG CAP 4 po at bedtime for insomnia DIPHENHYDRAMINE HCL 90224660501 No Longer Active Ahmet Carbajal MD Active ADVAIR DISKUS 250-50 MCG/DOSE INH AEPB 1 puff twice a day for asthma FLUTICASONE-SALMETEROL 40780887024 No Longer Active Ahmet Carbajal MD Active KLONOPIN 1 MG ORAL TABS 1 tab po TID CLONAZEPAM 06424461229 No Longer Active Ahmet Carbajal MD Active ABILIFY MAINTENA 400 MG IM SUSR 400mg injection every 26 days ARIPIPRAZOLE 73100517290 No Longer Active Ahmet Carbajal MD Active TRAMADOL HCL 50 MG TABS 1/2-1 tab TID PRN TRAMADOL HCL 66668979507 No Longer Active Ahmet Carbajal MD Active BACTRIM DS 800-160 MG TABS 1 twice a day SULFAMETHOXAZOLE- TRIMETHOPRIM 22849731912 No Longer Active Ahmet Carbajal MD Active PROAIR HFA 108 (90 BASE) MCG/ACT AERS 2 puffs four times a day as needed 2015 ALBUTEROL SULFATE 15154601006 Active Honey Hinton CRYPTOLOGIC SUPERVISOR Active MONISTAT 7 COMBO PACK WOODROW 100 & 2 MG-% (9GM) VAG KIT 1 applicatorful per vagina q pm x 7 MICONAZOLE NITRATE 05188234274 No Longer Active Ahmet Carbajal MD Active FLAGYL 500 MG TAB 1 tablet by mouth bid METRONIDAZOLE 32976485895 No Longer Active Ahmet Carbajal MD Active OXYCODONE HCL ER 10 MG ORAL T12A 1/2 tab by mouth every 4 hours prn OXYCODONE HCL 60948968568 No Longer Active Ahmet Carbajal MD Active METHYLPREDNISOLONE 4 MG ORAL TABS po daily METHYLPREDNISOLONE 46394195450 No Longer Active Ahmet Carbajal MD Active LEVOFLOXACIN 500 MG ORAL TABS po daily LEVOFLOXACIN 13031799710 No Longer Active Ahmet Carbajal MD Active VIIBRYD 10 MG ORAL TABS Take 1 tablet once a day VILAZODONE HCL 77257421105 No Longer Active Ahmet Carbajal MD Active TOPAMAX 50 MG ORAL TABS 1 tab twice daily TOPIRAMATE 02331550594 No Longer Active Ahmet Carbajal MD Active DICLOFENAC SODIUM 50 MG TBEC 1 tablet by mouth four times daily PRN Pain 2015 DICLOFENAC SODIUM 68025122182 No Longer Active Ahmet Carbajal MD Active ADZENYS XR-ODT 6.3 MG ORAL TBED 1 tab po daily for ADHD AMPHETAMINE 21576168491 No Longer Active Ahmet Cabrajal MD Active CHANTIX 1 MG TABS 1 twice a day to help quit smoking VARENICLINE TARTRATE 27188658550 No Longer Active Dipika Burgos MD Active CHANTIX STARTING MONTH EARNEST 0.5 MG X 11 & 1 MG X 42 TABS take as directed 2015 VARENICLINE TARTRATE 14458342474 No Longer Active Dipika Burgos MD Active JARVIS GONZALEZ 100 MG CAP 1 to 2 tablets by mouth 3 times daily as needed for cough BENZONATATE 08378978054 No Longer Active Luigi Martínez APRN Active IMITREX 50 MG ORAL TABS 0.5 po x 1 PRN Headache. May repeat dose x 1 in 2 hours if needed SUMATRIPTAN SUCCINATE 66469294879 Active TAMARA Casey Active HYDROCODONE-ACETAMINOPHEN 5-325 MG TABS 1 to 2 four times a day as needed for pain use until can be seen by specialist HYDROCODONE- ACETAMINOPHEN 17614905236 No Longer Active Vishal Hui MD Active PROAIR HFA 108 (90 BASE) MCG/ACT AERS 2 puffs four times a day as needed 2015 ALBUTEROL SULFATE 93692581966 No Longer Active Vishal Hui MD Active PREDNISONE 20 MG TABS 2 daily for 5 days then 1 daily for 5 days PREDNISONE 59338731420 No Longer Active Vishal Hui MD Active ZITHROMAX Z-EARNEST 250 MG TABS 2 today and then 1 daily for 4 days AZITHROMYCIN 70395752894 No Longer Active Vishal Hui MD Active DICLOFENAC POTASSIUM TABS Take 1 tablet twice a day (pt. is not sure of the dose.) DICLOFENAC POTASSIUM TABS 39350575568 No Longer Active Vishal Hui MD Active VERAPAMIL HCL ER 120 MG ORAL CR-TABS Take 1 tablet by mouth twice a day. VERAPAMIL HCL 05866735572 Active Vishal Hui MD Active FLAGYL 500 MG TAB 1 tablet by mouth bid METRONIDAZOLE 75592270504 No Longer Active Vishal Hui MD Active VALIUM 5 MG TAB Take 1-2 tablets daily DIAZEPAM 88571217756 No Longer Active Fabiola Johnson APRN Active METOPROLOL TARTRATE 25 MG ORAL TABS 1/2 tablet twice daily for heart rate and blood pressure METOPROLOL TARTRATE 22988171079 No Longer Active Fabiola Johnson APRN Active MIRALAX PACK 1 po qd PRN Constipation POLYETHYLENE GLYCOL 3350 50331980757 No Longer Active Ahmet Carbajal MD Active MINIPRESS 2 MG CAPS 4 cap po at night PRAZOSIN HCL 54074404320 No Longer Active Ahmet Carbajal MD Active PIROXICAM 20 MG CAPS 1 cap po qd PRN Pain PIROXICAM 35585255635 No Longer Active Ahmet Carbajal MD Active TRAMADOL HCL 50 MG TABS 1-2 po TID PRN Pain TRAMADOL HCL 14159486523 No Longer Active Ahmet Carbajal MD Active METOPROLOL TARTRATE 50 MG TAB 1 po bid METOPROLOL TARTRATE 87416115830 No Longer Active Ahmet Carbajal MD Active ABILIFY 15 MG ORAL TABS 1 tab daily ARIPIPRAZOLE 36860178315 No Longer Active Ahmet Carbajal MD Active PROZAC 20 MG ORAL CAPS 1 tab daily FLUOXETINE HCL 38703024210 No Longer Active Ahmet Carbajal MD Active AMBIEN 5 MG ORAL TABS 1 tab at bedtime ZOLPIDEM TARTRATE 58469714933 No Longer Active Ahmet Carbajal MD Active PREDNISONE 20 MG TAB 2 tabs daily for 4 days, 1 tab daily for 4 days, 1/2 tab daily for 4 days PREDNISONE 87450488165 No Longer Active Ahmet Carbajal MD Active KEFLEX 500 MG CAP 1 po TID x 10 days CEPHALEXIN 71760585384 No Longer Active Vishal Hui MD Active SAPHRIS 5 MG SUBL 1 po bid ASENAPINE MALEATE 57090465052 No Longer Active Jillina Mauricio CRYPTOLOGIC SUPERVISOR Active LATUDA 80 MG TABS Take one by mouth daily LURASIDONE HCL 33329997211 No Longer Active Jillina Frazell CRYPTOLOGIC SUPERVISOR Active AMLODIPINE BESYLATE 5 MG TABS 1 tablet by mouth daily AMLODIPINE BESYLATE 08549426675 No Longer Active Jillina Fradwightl CRYPTOLOGIC SUPERVISOR Active AMITRIPTYLINE HCL 100 MG TAB one at hs AMITRIPTYLINE HCL 38790795310 No Longer Active Vishal Hui MD Active TRAZODONE HCL 100 MG TAB take 1 at bedtime TRAZODONE HCL 59098839751 No Longer Active Vishal Hui MD Active VYVANSE 40 MG CAPS 1 daily, LISDEXAMFETAMINE DIMESYLATE 87698801851 No Longer Active Vishal Hui MD Active IBUPROFEN 600 MG TAB 1 po TID PRN IBUPROFEN 35035521558 No Longer Active Vishal Hui MD Active PROZAC 20 MG CAP Take one by mouth daily FLUOXETINE HCL 19211594354 No Longer Active Vishal Hui MD Active BACTRIM DS 800-160 MG TABS 1 pill by mouth twice daily SULFAMETHOXAZOLE-TRIMETHOPRIM 36654838663 No Longer Active Sahara Rodriguez MD PhD Active DIFLUCAN 150 MG TAB 1 tablet by mouth daily FLUCONAZOLE 67425834911 No Longer Active Vishal Hui MD Active TIZANIDINE HCL 4 MG TABS 1 po q6hr PRN Muscle Spasm/Back Pain TIZANIDINE HCL 46426788085 Active TAMARA Casey Active CLINDAMYCIN HCL 150 MG CAPS 1 four times a day CLINDAMYCIN HCL 61773007832 No Longer Active Neeraj Collins MD Active KEFLEX 500 MG ORAL CAPS 1 cap QID by mouth CEPHALEXIN 16051939621 No Longer Active Neeraj Collins MD Active DIFLUCAN 150 MG TABS 1 pill every other day x 2 doses FLUCONAZOLE 26617956514 No Longer Active Sahara Rodriguez MD PhD Active MELATONIN 3 MG CAPS 2 po q hs MELATONIN 69491531558 No Longer Active Sahara Rodriguez MD PhD Active MULTIVITAMINS CAPS Take one by mouth daily MULTIPLE VITAMIN 26105208270 No Longer Active Sahara Rodriguez MD PhD Active BACTRIM DS 800-160 MG TAB 1 tab by mouth twice daily TRIMETHOPRIM-SULFAMETHOXAZOLE 73862700962 No Longer Active Sahara Rodriguez MD PhD Active [facility] PROBIOTIC ORAL CHEW 2 daily po PROBIOTIC PRODUCT 16064273636 No Longer Active Sahara Rodriguez MD PhD Active BACTRIM DS 800-160 MG TABS 1 po BID x 7 days SULFAMETHOXAZOLE-TRIMETHOPRIM 87773161342 No Longer Active Vishal Hui MD Active CHANTIX STARTING MONTH EARNEST 0.5 MG X 11 & 1 MG X 42 TABS 0.5mg daily for 3 days , then 0.5mg BID for 4 days, then 1mg BID VARENICLINE TARTRATE 09304833244 No Longer Active TAMARA Gray Active VERAPAMIL HCL CR 120 MG TAB CR 1 po bid VERAPAMIL HCL 22599514465 No Longer Active Vishal Hui MD Active METOPROLOL SUCCINATE 50 MG TB24 1 tablet by mouth daily METOPROLOL SUCCINATE 93826998965 No Longer Active Vishal Hui MD Active SAPHRIS 10 MG SUBL 1 tab po bid ASENAPINE MALEATE 74492610601 No Longer Active Vishal Hui MD Active LISINOPRIL 20 MG TABS 1 tab po qd LISINOPRIL 91693814372 No Longer Active Vishal Hui MD Active LATUDA 20 MG TABS Take one by mouth daily LURASIDONE HCL 41639881435 No Longer Active Vishal Hui MD Active TRAZODONE HCL 50 MG TABS 1/2 tab po qd prn for anxiety TRAZODONE HCL 14186724633 No Longer Active Vishal Hui MD Active OMEPRAZOLE 20 MG TBEC 1 po q a.m. 30min prior to first food intake OMEPRAZOLE 59204382390 Active TAMARA Casey Active RANITIDINE HCL 150 MG CAPS 1 twice a day RANITIDINE HCL 64085835680 Active Lynda Madl YARD WORKER Active LINZESS 290 MCG CAPS Take one by mouth daily LINACLOTIDE 82559645700 No Longer Active Vishal Hui MD Active SAPHRIS 5 MG SUBL 1 tab po qd ASENAPINE MALEATE 15372359329 No Longer Active Vishal Hui MD Active ZALEPLON 10 MG CAPS 1 cap po every other night ZALEPLON 89576539491 No Longer Active Vishal Hui MD Active LYRICA 50 MG CAPS 1 tab po TID PREGABALIN 78786206556 No Longer Active Vishal Hui MD Active LORATADINE 10 MG TABS 1 tab po qd LORATADINE 45021508952 No Longer Active Vishal Hui MD Active VERAPAMIL HCL ER 180 MG CR-TABS 1 tab po bid VERAPAMIL HCL 68549415754 No Longer Active Vishal Hui MD Active MIRALAX POWD 1 capfull once daily POLYETHYLENE GLYCOL 3350 55381303862 No Longer Active Vishal Hui MD Active PREDNISONE 20 MG TABS 1 tab po qd PREDNISONE 97695185442 No Longer Active Renzo Thornton DO Active LEVOFLOXACIN 500 MG TABS 1 tab po qd LEVOFLOXACIN 60960780115 No Longer Active Renzo Thornton DO Active BUSPIRONE HCL 15 MG TABS 1 tab po TID BUSPIRONE HCL 73200544044 No Longer Active Renzo Thornton DO Active BENZTROPINE MESYLATE 1 MG TABS 1 tab po qd BENZTROPINE MESYLATE 67726199357 No Longer Active Renzo Thornton DO Active ATENOLOL 25 MG TABS 1 tab po qd ATENOLOL 07647569120 No Longer Active Renzo Thornton DO Active ESCITALOPRAM OXALATE 20 MG TABS 1 tab po qd ESCITALOPRAM OXALATE 53489824747 No Longer Active Renzo Thornton DO Active ADVAIR DISKUS 250-50 MCG/DOSE AEPB 1 puff BID FLUTICASONE-SALMETEROL 93272069386 No Longer Active Renzo Thornton DO Active PREDNISONE 20 MG TAB 2 tabs daily for 3 days, 1 tab daily for 3 days, 1/2 tab daily for 2 days PREDNISONE 54997162139 No Longer Active Vishal Hui MD Active CEFDINIR 300 MG CAPS by mouth twice a day CEFDINIR 66654274118 No Longer Active Vishal Hui MD Active LANSOPRAZOLE 30 MG CPDR 1 cap po qd LANSOPRAZOLE 28201482503 No Longer Active Vishal Hui MD Active BACLOFEN 20 MG TABS 1 tab po tid BACLOFEN 25975936737 No Longer Active Vishal Hui MD Active ADVAIR DISKUS 250-50 MCG/DOSE AEPB 1 puff BID ADVAIR DISKUS 250-50 MCG/DOSE AEPB FLUTICASONE-SALMETEROL Inactive ESCITALOPRAM OXALATE 20 MG TABS 1 tab po qd ESCITALOPRAM OXALATE 20 MG TABS 232469 ESCITALOPRAM OXALATE Inactive ATENOLOL 25 MG TABS 1 tab po qd ATENOLOL 25 MG TABS 195318 ATENOLOL Inactive BENZTROPINE MESYLATE 1 MG TABS 1 tab po qd BENZTROPINE MESYLATE 1 MG TABS 622055 BENZTROPINE MESYLATE Inactive BUSPIRONE HCL 15 MG TABS 1 tab po TID BUSPIRONE HCL 15 MG TABS 707483 BUSPIRONE HCL Inactive LEVOFLOXACIN 500 MG TABS 1 tab po qd LEVOFLOXACIN 500 MG TABS 230942 LEVOFLOXACIN Inactive PREDNISONE 20 MG TABS 1 tab po qd PREDNISONE 20 MG TABS 896094 PREDNISONE Inactive MIRALAX POWD 1 capfull once daily MIRALAX POWD 376903 POLYETHYLENE GLYCOL 3350 Inactive VERAPAMIL HCL ER 180 MG CR-TABS 1 tab po bid VERAPAMIL HCL ER 180 MG CR-TABS VERAPAMIL HCL Inactive LORATADINE 10 MG TABS 1 tab po qd LORATADINE 10 MG TABS 741752 LORATADINE Inactive LYRICA 50 MG CAPS 1 tab po TID LYRICA 50 MG CAPS PREGABALIN Inactive ZALEPLON 10 MG CAPS 1 cap po every other night ZALEPLON 10 MG CAPS 037818 ZALEPLON Inactive SAPHRIS 5 MG SUBL 1 tab po qd SAPHRIS 5 MG SUBL ASENAPINE MALEATE Inactive TRAZODONE HCL 50 MG TABS 1/2 tab po qd prn for anxiety TRAZODONE HCL 50 MG TABS 673841 TRAZODONE HCL Inactive LATUDA 20 MG TABS Take one by mouth daily LATUDA 20 MG TABS LURASIDONE HCL Inactive LISINOPRIL 20 MG TABS 1 tab po qd LISINOPRIL 20 MG TABS 049487 LISINOPRIL Inactive SAPHRIS 10 MG SUBL 1 [...] twice daily BACTRIM DS 800-160 MG TAB 033183 TRIMETHOPRIM-SULFAMETHOXAZOLE Inactive MULTIVITAMINS CAPS Take one by mouth daily MULTIVITAMINS CAPS MULTIPLE VITAMIN Inactive MELATONIN 3 MG CAPS 2 po q hs MELATONIN 3 MG CAPS 19950526 MELATONIN Inactive KEFLEX 500 MG ORAL CAPS 1 cap QID by mouth KEFLEX 500 MG ORAL CAPS 444571 CEPHALEXIN Inactive CLINDAMYCIN HCL 150 MG CAPS 1 four times a day CLINDAMYCIN HCL 150 MG CAPS 19740326 CLINDAMYCIN HCL Inactive DIFLUCAN 150 MG TAB 1 tablet by mouth daily DIFLUCAN 150 MG TAB 828631 FLUCONAZOLE Inactive PROZAC 20 MG CAP Take one by mouth daily PROZAC 20 MG CAP 757190 FLUOXETINE HCL Inactive IBUPROFEN 600 MG TAB 1 po TID PRN IBUPROFEN 600 MG TAB 570074 IBUPROFEN Inactive VYVANSE 40 MG CAPS 1 daily, VYVANSE 40 MG CAPS LISDEXAMFETAMINE DIMESYLATE Inactive TRAZODONE HCL 100 MG TAB take 1 at bedtime TRAZODONE HCL 100 MG TAB 066089 TRAZODONE HCL Inactive AMITRIPTYLINE HCL 100 MG TAB one at hs AMITRIPTYLINE HCL 100 MG TAB 055058 AMITRIPTYLINE HCL Inactive AMLODIPINE BESYLATE 5 MG TABS 1 tablet by mouth daily AMLODIPINE BESYLATE 5 MG TABS 731094 AMLODIPINE BESYLATE Inactive LATUDA 80 MG TABS Take one by mouth daily LATUDA 80 MG TABS LURASIDONE HCL Inactive SAPHRIS 5 MG SUBL 1 po bid SAPHRIS 5 MG SUBL ASENAPINE MALEATE Inactive PREDNISONE 20 MG TAB 2 tabs daily for 4 days, 1 tab daily for 4 days, 1/2 tab daily for 4 days PREDNISONE 20 MG TAB 643010 PREDNISONE Inactive AMBIEN 5 MG ORAL TABS 1 tab at bedtime AMBIEN 5 MG ORAL TABS 920269 ZOLPIDEM TARTRATE Inactive PROZAC 20 MG ORAL CAPS 1 tab daily PROZAC 20 MG ORAL CAPS 676544 FLUOXETINE HCL Inactive ABILIFY 15 MG ORAL TABS 1 tab daily ABILIFY 15 MG ORAL TABS 476724 ARIPIPRAZOLE Inactive METOPROLOL TARTRATE 50 MG TAB 1 po bid METOPROLOL TARTRATE 50 MG TAB 053060 METOPROLOL TARTRATE Inactive TRAMADOL HCL 50 MG TABS 1-2 po TID PRN Pain TRAMADOL HCL 50 MG TABS 515787 TRAMADOL HCL Inactive PIROXICAM 20 MG CAPS 1 cap po qd PRN Pain PIROXICAM 20 MG CAPS 756608 PIROXICAM Inactive MINIPRESS 2 MG CAPS 4 cap po at night MINIPRESS 2 MG CAPS 497608 PRAZOSIN HCL Inactive MIRALAX PACK 1 po qd PRN Constipation MIRALAX PACK 582102 POLYETHYLENE GLYCOL 3350 Inactive METOPROLOL TARTRATE 25 MG ORAL TABS 1/2 tablet twice daily for heart rate and blood pressure METOPROLOL TARTRATE 25 MG ORAL TABS 654588 METOPROLOL TARTRATE Inactive VALIUM 5 MG TAB Take 1-2 tablets daily VALIUM 5 MG TAB 163860 DIAZEPAM Inactive FLAGYL 500 MG TAB 1 tablet by mouth bid FLAGYL 500 MG TAB 835810 METRONIDAZOLE Inactive DICLOFENAC POTASSIUM TABS Take 1 tablet twice a day (pt. is not sure of the dose.) DICLOFENAC POTASSIUM TABS DICLOFENAC POTASSIUM TABS Inactive ZITHROMAX Z-EARNEST 250 MG TABS 2 today and then 1 daily for 4 days ZITHROMAX Z-EARNEST 250 MG TABS 6450501 AZITHROMYCIN Inactive PREDNISONE 20 MG TABS 2 daily for 5 days then 1 daily for 5 days PREDNISONE 20 MG TABS 167259 PREDNISONE Inactive PROAIR HFA 108 (90 BASE) MCG/ACT AERS 2 puffs four times a day as needed 2015 PROAIR HFA 108 (90 BASE) MCG/ACT AERS ALBUTEROL SULFATE Inactive HYDROCODONE-ACETAMINOPHEN 5-325 MG TABS 1 to 2 four times a day as needed for pain use until can be seen by specialist HYDROCODONE- ACETAMINOPHEN 5-325 MG TABS 955584 HYDROCODONE-ACETAMINOPHEN Inactive TESSALON PERLES 100 MG CAP 1 to 2 tablets by mouth 3 times daily as needed for cough TESSALON PERLES 100 MG CAP 319277 BENZONATATE Inactive CHANTIX STARTING MONTH EARNEST 0.5 [...] Pain 2015 DICLOFENAC SODIUM 50 MG TBEC 697593 DICLOFENAC SODIUM Inactive TOPAMAX 50 MG ORAL TABS 1 tab twice daily TOPAMAX 50 MG ORAL TABS 018662 TOPIRAMATE Inactive VIIBRYD 10 MG ORAL TABS Take 1 tablet once a day VIIBRYD 10 MG ORAL TABS VILAZODONE HCL Inactive LEVOFLOXACIN 500 MG ORAL TABS po daily LEVOFLOXACIN 500 MG ORAL TABS 269184 LEVOFLOXACIN Inactive METHYLPREDNISOLONE 4 MG ORAL TABS po daily METHYLPREDNISOLONE 4 MG ORAL TABS 108128 METHYLPREDNISOLONE Inactive OXYCODONE HCL ER 10 MG ORAL T12A 1/2 tab by mouth every 4 hours prn OXYCODONE HCL ER 10 MG ORAL T12A OXYCODONE HCL Inactive FLAGYL 500 MG TAB 1 tablet by mouth bid FLAGYL 500 MG TAB 477783 METRONIDAZOLE Inactive MONISTAT 7 COMBO PACK WOODROW 100 & 2 MG-% (9GM) VAG KIT 1 applicatorful per vagina q pm x 7 MONISTAT 7 COMBO PACK WOODROW 100 & 2 MG-% (9GM) VAG KIT MICONAZOLE NITRATE Inactive BACTRIM DS 800-160 MG TABS 1 twice a day BACTRIM DS 800-160 MG TABS 284717 SULFAMETHOXAZOLE-TRIMETHOPRIM Inactive TRAMADOL HCL 50 MG TABS 1/2-1 tab TID PRN TRAMADOL HCL 50 MG TABS 334455 TRAMADOL HCL Inactive ABILIFY MAINTENA 400 MG IM SUSR 400mg injection every 26 days ABILIFY MAINTENA 400 MG IM SUSR ARIPIPRAZOLE Inactive KLONOPIN 1 MG ORAL TABS 1 tab po TID KLONOPIN 1 MG ORAL TABS 629997 CLONAZEPAM Inactive ADVAIR DISKUS 250-50 MCG/DOSE INH AEPB 1 puff twice a day for asthma ADVAIR DISKUS 250-50 MCG/DOSE INH AEPB FLUTICASONE- SALMETEROL Inactive BENADRYL 25 MG CAP 4 po at bedtime for insomnia BENADRYL 25 MG CAP DIPHENHYDRAMINE HCL Inactive PREDNISONE 20 MG TABS 2 daily for 5 days then 1 daily for 5 days PREDNISONE 20 MG TABS 180170 PREDNISONE Inactive HYDROCODONE-ACETAMINOPHEN 5-325 MG ORAL TABS 1 tab two times a day HYDROCODONE-ACETAMINOPHEN 5-325 MG ORAL TABS 333180 HYDROCODONE-ACETAMINOPHEN Inactive ZITHROMAX Z-EARNEST 250 MG TABS 2 today and then 1 daily for 4 days ZITHROMAX Z-EARNEST 250 MG TABS [id number] AZITHROMYCIN Inactive GUAIFENESIN-CODEINE 100-10 MG/5ML SYRP 5ml every 4 to 6 hours as needed for cough GUAIFENESIN-CODEINE 100-10 MG/5ML SYRP [id number] GUAIFENESIN-CODEINE Inactive HALOPERIDOL 10 MG ORAL TABS 1 tab q.d HALOPERIDOL 10 MG ORAL TABS [id number] HALOPERIDOL Inactive ASPIRIN 325 MG ORAL TABS 1 tab q.d ASPIRIN 325 MG ORAL TABS [id number] ASPIRIN Inactive FLUTICASONE PROPIONATE 50 MCG/ACT SUSP 2 sprays each nostril daily before bed. FLUTICASONE PROPIONATE 50 MCG/ACT SUSP [id number] FLUTICASONE PROPIONATE Inactive ZOFRAN 4 MG TABS 1 po q6hr PRN Nausea ZOFRAN 4 MG TABS [id number] ONDANSETRON HCL Inactive KEFLEX 500 MG CAP 1 po qid KEFLEX 500 MG CAP 119045 CEPHALEXIN Inactive ACETAMINOPHEN-CODEINE 120-12 MG/5ML SOLN 5 ml by mouth every 4-6 hours if needed for cough ACETAMINOPHEN-CODEINE 120-12 MG/5ML SOLN 031597 ACETAMINOPHEN-CODEINE Inactive PREDNISONE 20 MG TAB 1 tablet daily x 4 days PREDNISONE 20 MG TAB 787098 PREDNISONE Inactive TROPICAMIDE 0.5 % OPHTH SOLN 1 drop PRN eye spasms TROPICAMIDE 0.5 % OPHTH SOLN 773588 TROPICAMIDE Inactive LEVAQUIN 500 MG TABS 1 daily for infection LEVAQUIN 500 MG TABS 246023 LEVOFLOXACIN Inactive PREDNISONE 10 MG TABS 2 daily for 5 days then 1 daily for 5 days PREDNISONE 10 MG TABS 203661 PREDNISONE Inactive EQ NICOTINE 21 MG/24HR TRANS [...] for cough TESSALON PERLES 100 MG CAPS 692117 BENZONATATE Inactive AMITIZA 8 MCG ORAL CAPS [...] twice a day MUPIROCIN 2 % OINT 987378 MUPIROCIN Inactive BACTRIM DS 800-160 MG TAB Take one (1) tablet by mouth twice a day for 5 days BACTRIM DS 800-160 MG TAB [id number] TRIMETHOPRIM- SULFAMETHOXAZOLE Inactive LACTULOSE 10 GM/15ML ORAL SOLN 30mL oral BID for IBS-C LACTULOSE 10 GM/15ML ORAL SOLN 765941 LACTULOSE Inactive MIRALAX ORAL POWD 17GMS DAILY IN WATER MIRALAX ORAL POWD 893589 POLYETHYLENE GLYCOL 3350 Inactive CEFDINIR 300 MG CAPS by mouth twice a day CEFDINIR 300 MG CAPS 508995 CEFDINIR Inactive PREDNISONE 20 MG TAB 2 tabs daily for 3 days, 1 tab daily for 3 days, 1/2 tab daily for 2 days PREDNISONE 20 MG TAB 507052 PREDNISONE Inactive BACTRIM DS 800-160 MG TABS [...] x 10 days KEFLEX 500 MG CAP 954887 CEPHALEXIN Inactive Advance Directives Directive Description Start [...] % 11.0-15.0 platelet count 443 THOUSAND/UL 10*3/mm3 441-654 9917/03/01 mean platelet volume 8.2 fL 7.5-12.5 leukocyte [...] % 11.0-15.0 platelet count 349 THOUSAND/UL 10*3/mm3 071-356 2664/04/12 mean platelet volume 8.4 fL 7.5-12.5 Lab [...] 369 10^3/MM^3 10*3/mm3 142-424 Lab Report: Chlamydia/GC APTIMA/95464 - Lab chlamydia DNA probe NOT DETECTED NOT DETECTED Lab Report: Chlamydia/GC APTIMA/51615 - Microbiology Neisseria gonorrhoeae DNA probe NOT DETECTED NOT DETECTED Lab Report: Chlamydia/GC APTIMA/60250, Urinalysis, Complete, with Reflex ... - Lab chlamydia DNA probe NOT DETECTED NOT DETECTED Lab Report: Chlamydia/GC APTIMA/95465, Urinalysis, Complete, with Reflex ... - Microbiology Neisseria gonorrhoeae DNA probe NOT DETECTED NOT DETECTED Lab Report: Chlamydia/GC APTIMA/15378, Urinalysis, Complete, with Reflex ... - Urinalysis microalbumin/total urine volume 2 mg/L Units converted. See lab report for original value. microalbumin/creatinine ratio, urine 9 MCG/MG CREAT mg/L <30 Lab Report: Comp. Metabolic Panel - Chemistry sodium, serum 140 mmol/L 277-323 2456/08/08 carbon dioxide, venous blood 33.7 mmol/L 21.0-32.0 potassium, serum 5.0 mmol/L 3.5-5.2 chloride, serum 103 mmol/L 98-107 blood glucose 80 mg/dL 65-110 urea nitrogen, blood 13 mg/dL 7-18 creatinine, serum 0.88 mg/dL 0.55-1.30 alanine aminotransferase (SGPT), serum 54 U/L 12-78 aspartate aminotransferase (SGOT), serum 29 U/L 15-37 calcium, serum 9.7 mg/dL 8.5-10.1 bilirubin, serum, total 0.30 mg/dL 0.00-1.00 sodium, serum 140 mmol/L 274-727 7657/06/28 carbon dioxide, venous blood 23.8 mmol/L 21.0-32.0 [...] 5.0-8.5 Encounters Code Encounter Date Provider Facility CPT-30626 Level 3 Est. Patient 11:08:[facility] [place] [facility] 3 Est. Patient 15:55:[address] [facility] CPT-40296 Level 4 Est. Patient 10:49:[address] [facility] CPT-61409 Level 3 Est. Patient 10:00:25 CDT Suzan Boo [facility] CPT-82455 Level 3 Est. Patient 10:29:30 CDT Suzan Boo [facility] CPT-14471 Level 3 Est. Patient 11:04:38 CDT Renzo Barajas [facility] CPT-09136 Level 3 Est. Patient 11:15:58 SENIOR STRATEGY MANAGER Renzo Thornton [facility]-46229 Level 3 Est. Patient 15:28:23 SENIOR STRATEGY MANAGER Suzan Boo [facility] CPT-95252 Level 4 Est. Patient 10:20:54 SENIOR STRATEGY MANAGER Suzan Boo [facility]-85375 Level 3 Est. Patient 11:47:37 SENIOR STRATEGY MANAGER Ahmet Carbajal MD [facility]-82326 Level 3 Est. Patient 10:40:11 SENIOR STRATEGY MANAGER Ahmet Carbajal MD [facility]-24143 Level 3 Est. Patient 15:07:06 SENIOR STRATEGY MANAGER Neeraj Collins MD [facility] CPT-53841 Level 4 Est. Patient 14:45:00 SENIOR STRATEGY MANAGER Ahmet Carbajal MD [facility] CPT-69253 Level 3 Est. Patient 13:59:59 CDT Luigi Martínez [facility] CPT-36725 Level 3 Est. Patient 18:18:53 CDT Neeraj Collins MD [facility] CPT-08551 Level 3 Est. Patient 15:50:44 CDT Vishal Hui MD [facility] CPT-51755 Level 3 Est. Patient 11:36:17 CDT Ahmet Carbajal MD [facility]-56653 Level 3 Est. Patient 13:29:16 CDT Vishal Hui MD [facility] CPT-86460 Level 3 Est. Patient 14:27:52 CDT Neeraj Collins MD [facility] CPT-21223 Level 3 Est. Patient 08:56:03 CDT Luigi Martínez [facility] CPT-00330 Level 4 Est. Patient 12:11:48 CDT Fabiola Johnson [facility] CPT-36785 Level 3 New Patient 16:53:37 CDT Albert Caldera MD [facility] CPT-14846 Level 3 Est. Patient 11:25:49 CDT Renzo Thornton DO [facility] CPT-45123 Level 3 Est. Patient 15:22:01 CDT Ahmet Carbajal MD [facility] CPT-62773 Level 4 Est. Patient 09:00:51 SENIOR STRATEGY MANAGER Vishal Hui MD [facility] CPT-59913 Level 3 Est. Patient 11:37:33 SENIOR STRATEGY MANAGER Vishal Hui MD [facility] CPT-89162 Level 3 Est. Patient 08:41:09 SENIOR STRATEGY MANAGER Vishal Hui MD [facility] CPT-53480 Level 4 Est. Patient 10:19:35 SENIOR STRATEGY MANAGER Vishal Hui MD [facility] CPT-83652 Level 3 Est. Patient 13:35:45 CDT Vishal Hui MD [facility] CPT-54821 Level 4 Est. Patient 10:08:37 CDT Vishal Hui MD [facility] CPT-41619 Level 3 Est. Patient 11:22:10 CDT Vishal Hui MD [facility] CPT-92384 Level 3 Est. Patient 11:03:32 CDT Sahara Rodriguez MD PhD [facility] CPT-91045 Level 3 Est. Patient 09:41:35 CDT Vishal Hui MD [facility] CPT-14477 Level 3 Est. Patient 12:00:41 CDT Neeraj Collins MD [facility] CPT-96999 Level 3 Est. Patient 09:16:24 CDT Vishal Hui MD [facility] CPT-87658 Level 4 Est. Patient 13:59:09 CDT Neeraj Collins MD [facility] CPT-51133 Level 3 Est. Patient 15:19:43 CDT Renzo Thornton [facility] CPT-70242 Level 3 Est. Patient 18:10:26 CDT Sahara Rodriguez MD [facility] CPT-26437 Level 3 Est. Patient 14:49:50 CDT Vishal Hui MD [facility] CPT-25753 Level 4 Est. Patient 18:41:46 CDT Neeraj Collins MD [facility] CPT-22704 Level 4 Est. Patient 09:18:38 SENIOR STRATEGY MANAGER Vishal Hui MD [facility] CPT-19311 Level 3 Est. Patient 14:43:55 SENIOR STRATEGY MANAGER Vishal Hui MD [facility] CPT-70220 Level 3 Est. Patient 15:26:33 SENIOR STRATEGY MANAGER Sahara Rodriguez MD [facility] CPT-66209 Level 3 Est. Patient 10:32:14 SENIOR STRATEGY MANAGER Vishal Hui MD [facility] CPT-32197 Level 3 Est. Patient 15:12:52 SENIOR STRATEGY MANAGER Vishal Hui MD [facility] CPT-75624 Level 4 Est. Patient 09:19:27 CDT Vishal Hui MD [facility] CPT-71948 Level 3 Est. Patient 15:53:00 CDT Renzo Thornton [facility] CPT-89569 Level 3 Est. Patient 15:50:30 CDT Renzo Thornton [facility] CPT-89674 Level 3 Est. Patient 16:55:24 CDT Vishal Hui MD [facility] Procedures Code Procedure Name Date Entry Date Standard Description CPT-80757 EKG Trac and Interp - XRAY USE ONLY 15:59:30 CDT 09/13 CPT-04288 Chest 1V Frontal - XRAY USE ONLY 15:59:30 CDT CPT-40196 Venipuncture Draw Fee 15:44:02 CDT CPT-85404 Venipuncture Draw Fee 08:41:12 CDT CPT-60626 Abd compl w upright - XRAY USE ONLY 10:27:59 CDT 06/28 CPT-36844 Smoking Cessation counseling 11:15:58 SENIOR STRATEGY MANAGER CPT-G0439 Subsequent Annual Wellness Exam 09:30:58 SENIOR STRATEGY MANAGER CPT-72234 TSH - LAB USE ONLY 08:50:26 SENIOR STRATEGY MANAGER CPT-74294 CBC - LAB USE ONLY 08:50:26 SENIOR STRATEGY MANAGER CPT-00434 Venipuncture Draw Fee 08:50:26 SENIOR STRATEGY MANAGER CPT-58654 Abx/Therapy Injection 17:34:30 SENIOR STRATEGY MANAGER CPT-50840 Nexplanon Removal with Reinsertion 14:09:32 CDT CPT-J7307 Nexplanon (Implant) 14:09:32 CDT CPT-OV Office Visit 14:09:32 CDT CPT-15698 UA w micro - LAB USE ONLY 16:21:13 CDT CPT-03369 Wet Mount - LAB USE ONLY 16:21:13 CDT CPT-46827 First Vx - Ix admin for Medicare patients 14:37:47 CDT CPT-49869 Fluzone Preservative Free Intramuscular Suspension 14:37 :47 CDT CPT-46911 Abx/Therapy Injection 13:54:22 CDT CPT-40397 Abx/Therapy Injection 08:47:09 CDT CPT-25966 Abx/Therapy Injection 13:29:56 CDT CPT-00764 Abx/Therapy Injection 08:36:16 CDT CPT-72849 Wet Mount - LAB USE ONLY 17:44:58 CDT CPT-29089 UA w micro - LAB USE ONLY 17:44:58 CDT CPT-37536 CMP - LAB USE ONLY 17:44:58 CDT CPT-43058 Venipuncture Draw Fee 17:44:58 CDT CPT-63120 Cervical Min 4V - XRAY USE ONLY 09:01:40 CDT CPT-85096 Chest 2V Frontal and Lat - XRAY USE ONLY 11:06:31 CDT CPT-14078 EKG Trac and Interp - XRAY USE ONLY 11:31:43 CDT 08/26 CPT-J3420 Vitamin B12 1000mcg (Cyanocobalamin) 08:10:26 SENIOR STRATEGY MANAGER 04/12 CPT-02047 Abx/Therapy Injection 08:10:26 SENIOR STRATEGY MANAGER CPT-G0438 Initial Annual Wellness Exam 19:01:01 SENIOR STRATEGY MANAGER CPT-J3420 Vitamin B12 1000mcg (Cyanocobalamin) 16:57:46 CDT 08/14 CPT-21434 Recombivax HB Injection Suspension 5 MCG/0.5ML 08:37:50 SENIOR STRATEGY MANAGER CPT-21199 Immunization Single Admin 08:37:50 SENIOR STRATEGY MANAGER CPT-J3420 Vitamin B12 1000mcg (Cyanocobalamin) 08:32:16 SENIOR STRATEGY MANAGER 03/11 CPT-65919 Abx/Therapy Injection 08:32:16 SENIOR STRATEGY MANAGER CPT-67379 Chest 2V Frontal and Lat 11:46:38 SENIOR STRATEGY MANAGER CPT-55816 Venipuncture Draw Fee 09:12:45 SENIOR STRATEGY MANAGER CPT-J3420 Vitamin B12 1000mcg (Cyanocobalamin) 08:50:15 SENIOR STRATEGY MANAGER 02/08 CPT-15471 Abx/Therapy Injection 08:50:15 SENIOR STRATEGY MANAGER CPT-Cryo Cryotherapy 10:19:35 SENIOR STRATEGY MANAGER CPT-000 Give Appropriate Flu Vaccine 09:22:16 CDT CPT-J3420 Vitamin B12 1000mcg (Cyanocobalamin) 19:08:57 CDT 01/11 CPT-62958 Abx/Therapy Injection 19:08:57 CDT CPT-J3420 Vitamin B12 1000mcg (Cyanocobalamin) 08:19:08 CDT 12/11 CPT-13892 Abx/Therapy Injection 08:19:08 CDT CPT-J3420 Vitamin B12 1000mcg (Cyanocobalamin) 14:48:00 CDT 11/09 CPT-73183 Abx/Therapy Injection 14:47:59 CDT CPT-J3420 Vitamin B12 1000mcg (Cyanocobalamin) 08:34:04 CDT 10/09 CPT-41292 Abx/Therapy Injection 08:34:04 CDT CPT-J3420 Vitamin B12 1000mcg (Cyanocobalamin) 09:18:52 CDT 09/11 CPT-90547 Abx/Therapy Injection 09:18:52 CDT CPT-J3420 Vitamin B12 1000mcg (Cyanocobalamin) 08:35:44 CDT 09/04 CPT-56848 Abx/Therapy Injection 08:35:44 CDT CPT-05310 Immunization Single Admin 11:07:16 CDT CPT-63258 Hepatitis B adult IM 11:07:16 CDT CPT-J3420 Vitamin B12 1000mcg (Cyanocobalamin) 11:00:49 CDT 08/28 CPT-J1040 Depo Medrol 80 mg (Methyl Prednisolone Acetate) 11:00: 49 CDT CPT-58814 Abx/Therapy Injection 11:00:49 CDT CPT-J1040 Depo Medrol 80 mg (Methyl Prednisolone Acetate) 09:16: 23 CDT CPT-J3420 Vitamin B12 1000mcg (Cyanocobalamin) 08:27:05 CDT 08/20 CPT-40662 Abx/Therapy Injection 08:27:05 CDT CPT-58977 Recombivax HB Injection Suspension 5 MCG/0.5ML 10:00:41 CDT CPT-67095 Administration single or combination vaccine inc oral 10 :00:41 CDT CPT-57135 Sono transvag pelvis non OB uterus ovaries cervix 16:36: 57 CDT CPT-00674 LS spine comp w obliq 09:50:55 SENIOR STRATEGY MANAGER CPT-48170 Abd compl w upright 09:50:55 SENIOR STRATEGY MANAGER CPT-J1100 Decadron 4mg (Dexamethasone) 15:51:24 SENIOR STRATEGY MANAGER CPT-J1030 Depo Medrol 40 mg (Methyl Prednisolone Acetate) 15:51: 24 SENIOR STRATEGY MANAGER CPT-70968 Abx/Therapy Injection 15:51:24 SENIOR STRATEGY MANAGER CPT-J1100 Decadron 4mg (Dexamethasone) 15:26:33 SENIOR STRATEGY MANAGER CPT-J1030 Depo Medrol 40 mg (Methyl Prednisolone Acetate) 15:26: 33 SENIOR STRATEGY MANAGER CPT-83180 Sono retroperitoneal complete kidneys and bladder 17:15: 30 CDT CPT-75641 Abd compl w upright 16:09:25 CDT CPT-J1100 Decadron 8mg (Dexamethasone) 17:07:57 CDT CPT-98497 Abx/Therapy Injection 17:07:57 CDT CPT-J1100 Decadron 8mg (Dexamethasone) 16:55:24 CDT CPT-10241 Chest 2V Frontal and Lat 16:32:44 CDT
--- OUTSIDE RECORDS SUMMARY | 2016-11-04 14:09 | XMS REPORT | Clinical Summary ---
Author Author Admin, E Organization [employer] Address Unknown Phone Unavailable Allergies, Adverse Reactions, [...] Active Ahmet Carbajal MD Generalized anxiety disorder Shank Tapper well woman exam V72.31 Active Suzan Boo [...] MD Health screening ICD-V70.0 Inactive Suzan Boo [employer] Sinus tachycardia ICD-427.89 Inactive Suzan Boo [employer] Smoker/tobacco use disorder-smoking cessation discussed ICD-305.1 Inactive [...] Hui MD Gait unsteady ICD-781.2 Inactive Albert Caledra MD [place] ICD-214.9 Inactive Albert Caldera MD [...] SOLN 30mL oral daily for IBS-C LACTULOSE 30086269520 Active Suzan Boo APRN Active TESSALON PERLES 100 MG CAPS 1 three times a day as needed for cough BENZONATATE 00597965672 No Longer Active Suzan Boo APRN Active BACTRIM DS 800-160 MG TABS 1 twice a day SULFAMETHOXAZOLE-TRIMETHOPRIM 03903903954 No Longer Active Suzan Boo APRN Active DIFLUCAN 150 MG TABS 1 by mouth for yeast FLUCONAZOLE 71081352438 No Longer Active Suzan Boo APRN Active EQ NICOTINE 21 MG/24HR TRANS PT24 Apply daily to stop smoking NICOTINE 77633731694 No Longer Active Suzan Boo APRN Active PREDNISONE 10 MG TABS 2 daily for 5 days then 1 daily for 5 days PREDNISONE 15470052141 No Longer Active Suzan Boo APRN Active LEVAQUIN 500 MG TABS 1 daily for infection LEVOFLOXACIN 54734443156 No Longer Active Suzan Boo APRN Active TROPICAMIDE 0.5 % OPHTH SOLN 1 drop PRN eye spasms TROPICAMIDE 21022943381 No Longer Active Suzan Boo APRN Active PREDNISONE 20 MG TAB 1 tablet daily x 4 days PREDNISONE 41888563510 No Longer Active Suzan Boo APRN Active ACETAMINOPHEN-CODEINE 120-12 MG/5ML SOLN 5 ml by mouth every 4-6 hours if needed for cough ACETAMINOPHEN-CODEINE 52377743930 No Longer Active Suzan Boo APRN Active KEFLEX 500 MG CAP 1 po qid CEPHALEXIN 57271705321 No Longer Active Suzan Boo APRN Active FLOVENT HFA 110 MCG/ACT AERO 2 puffs inhaled b.i.d. FLUTICASONE PROPIONATE HFA 94549719824 Active Renzo Thornton DO Active RISPERDAL 4 MG ORAL TABS 1 tab at bedtime RISPERIDONE 08146315576 Active Samantha Rothman RMA Active ZOFRAN 4 MG TABS 1 po q6hr PRN Nausea ONDANSETRON HCL No Longer Active Suzan Boo APRN Active FLUTICASONE PROPIONATE 50 MCG/ACT SUSP 2 sprays each nostril daily before bed. FLUTICASONE PROPIONATE 06669924057 No Longer Active Suzan Boo APRN Active ASPIRIN 325 MG ORAL TABS 1 tab q.d ASPIRIN 22644335784 No Longer Active Suzan Boo APRN Active HALOPERIDOL 10 MG ORAL TABS 1 tab q.d HALOPERIDOL 83366441054 No Longer Active Suzan Boo APRN Active GUAIFENESIN-CODEINE 100-10 MG/5ML SYRP 5ml every 4 to 6 hours as needed for cough GUAIFENESIN-CODEINE 53952894896 No Longer Active Suzan Boo APRN Active ZITHROMAX Z-EARNEST 250 MG TABS 2 today and then 1 daily for 4 days AZITHROMYCIN 02038598830 No Longer Active Suzan Boo APRN Active CLONAZEPAM 1 MG ORAL TABS 1 twice a day and an additional 1 tablet every other day as needed for pseudoseizures or anxiety CLONAZEPAM 16044389093 Active Ahmet Carbajal MD Active HYDROCODONE-ACETAMINOPHEN 5-325 MG ORAL TABS 1 tab two times a day HYDROCODONE-ACETAMINOPHEN 24527308916 No Longer Active Ahmet Carbajal MD Active LAMICTAL 100 MG ORAL TABS 1 tab 2 times qd. LAMOTRIGINE 66897827155 Active Ahmet Carbajal MD Active PREDNISONE 20 MG TABS 2 daily for 5 days then 1 daily for 5 days PREDNISONE 53004505939 No Longer Active Ahmet Carbajal MD Active FLUTICASONE PROPIONATE 50 MCG/ACT SUSP 1 to 2 sprays each nostril daily for allergies FLUTICASONE PROPIONATE 81976246001 Active Tila Valenzuela Active BENADRYL 25 MG CAP 4 po at bedtime for insomnia DIPHENHYDRAMINE HCL 77571067227 No Longer Active Ahmet Carbajal MD Active ADVAIR DISKUS 250-50 MCG/DOSE INH AEPB 1 puff twice a day for asthma FLUTICASONE-SALMETEROL 38440687541 No Longer Active Ahmet Carbajal MD Active KLONOPIN 1 MG ORAL TABS 1 tab po TID CLONAZEPAM 90589047535 No Longer Active Ahmet Carbajal MD Active ABILIFY MAINTENA 400 MG IM SUSR 400mg injection every 26 days ARIPIPRAZOLE 05740190919 No Longer Active Ahmet Carbajal MD Active TRAMADOL HCL 50 MG TABS 1/2-1 tab TID PRN TRAMADOL HCL 31107823312 No Longer Active Ahmet Carbajal MD Active BACTRIM DS 800-160 MG TABS 1 twice a day SULFAMETHOXAZOLE- TRIMETHOPRIM 53276494966 No Longer Active Ahmet Carbajal MD Active PROAIR HFA 108 (90 BASE) MCG/ACT AERS 2 puffs four times a day as needed 2015 ALBUTEROL SULFATE 44668605991 Active Ahmet Carbajal MD Active MONISTAT 7 COMBO PACK WOODROW 100 & 2 MG-% (9GM) VAG KIT 1 applicatorful per vagina q pm x 7 MICONAZOLE NITRATE 73174182990 No Longer Active Ahmet Carbajal MD Active FLAGYL 500 MG TAB 1 tablet by mouth bid METRONIDAZOLE 15705485074 No Longer Active Ahmet Carbajal MD Active OXYCODONE HCL ER 10 MG ORAL T12A 1/2 tab by mouth every 4 hours prn OXYCODONE HCL 05385804275 No Longer Active Ahmet Carbajal MD Active METHYLPREDNISOLONE 4 MG ORAL TABS po daily METHYLPREDNISOLONE 03298308853 No Longer Active Ahmet Carbajal MD Active LEVOFLOXACIN 500 MG ORAL TABS po daily LEVOFLOXACIN 66544514317 No Longer Active Ahmet Carbajal MD Active VIIBRYD 10 MG ORAL TABS Take 1 tablet once a day VILAZODONE HCL 00943790738 No Longer Active Ahmet Carbajal MD Active TOPAMAX 50 MG ORAL TABS 1 tab twice daily TOPIRAMATE 39490731127 No Longer Active Ahmet Carbajal MD Active DICLOFENAC SODIUM 50 MG TBEC 1 tablet by mouth four times daily PRN Pain 2015 DICLOFENAC SODIUM 32858641958 No Longer Active Ahmet Carbajal MD Active ADZENYS XR-ODT 6.3 MG ORAL TBED 1 tab po daily for ADHD AMPHETAMINE 72827735833 No Longer Active Ahmet Carbajal MD Active CHANTIX 1 MG TABS 1 twice a day to help quit smoking VARENICLINE TARTRATE 30496916022 No Longer Active Dipika Burgos MD Active CHANTIX STARTING MONTH EARNEST 0.5 MG X 11 & 1 MG X 42 TABS take as directed 2015 VARENICLINE TARTRATE 83800239286 No Longer Active Dipika Burgos MD Active TESSALON PERLES 100 MG CAP 1 to 2 tablets by mouth 3 times daily as needed for cough BENZONATATE 14400720369 No Longer Active Luigi Martínez APRN Active IMITREX 50 MG ORAL TABS 0.5 po x 1 PRN Headache. May repeat dose x 1 in 2 hours if needed SUMATRIPTAN SUCCINATE 13430494085 Active Ahmet Carbajal MD Active HYDROCODONE-ACETAMINOPHEN 5-325 MG TABS 1 to 2 four times a day as needed for pain use until can be seen by specialist HYDROCODONE- ACETAMINOPHEN 37828356073 No Longer Active Vishal Hui MD Active PROAIR HFA 108 (90 BASE) MCG/ACT AERS 2 puffs four times a day as needed 2015 ALBUTEROL SULFATE 74673296879 No Longer Active Vishal Hui MD Active PREDNISONE 20 MG TABS 2 daily for 5 days then 1 daily for 5 days PREDNISONE 84932089945 No Longer Active Vishal Hui MD Active ZITHROMAX Z-EARNEST 250 MG TABS 2 today and then 1 daily for 4 days AZITHROMYCIN 61016808818 No Longer Active Vishal Hui MD Active DICLOFENAC POTASSIUM TABS Take 1 tablet twice a day (pt. is not sure of the dose.) DICLOFENAC POTASSIUM TABS 85851753687 No Longer Active Vishal Hui MD Active VERAPAMIL HCL ER 120 MG ORAL CR-TABS Take 1 tablet by mouth twice a day. VERAPAMIL HCL 33659963407 Active Vishal Hui MD Active FLAGYL 500 MG TAB 1 tablet by mouth bid METRONIDAZOLE 43703272056 No Longer Active Vishal Hui MD Active VALIUM 5 MG TAB Take 1-2 tablets daily DIAZEPAM 17640406566 No Longer Active Fabiola Johnson APRN Active METOPROLOL TARTRATE 25 MG ORAL TABS 1/2 tablet twice daily for heart rate and blood pressure METOPROLOL TARTRATE 15092850492 No Longer Active Fabiola Johnson APRN Active MIRALAX ORAL POWD 17GMS DAILY IN WATER POLYETHYLENE GLYCOL 3350 52002329450 Active TAMARA Casey Active MIRALAX PACK 1 po qd PRN Constipation POLYETHYLENE GLYCOL 3350 15369066801 No Longer Active Ahmet Carbajal MD Active MINIPRESS 2 MG CAPS 4 cap po at night PRAZOSIN HCL 52422013693 No Longer Active Ahmet Carbajal MD Active PIROXICAM 20 MG CAPS 1 cap po qd PRN Pain PIROXICAM 48762862703 No Longer Active Ahmet Carbajal MD Active TRAMADOL HCL 50 MG TABS 1-2 po TID PRN Pain TRAMADOL HCL 33643463876 No Longer Active Ahmet Carbajal MD Active METOPROLOL TARTRATE 50 MG TAB 1 po bid METOPROLOL TARTRATE 37376686440 No Longer Active Ahmet Carbajal MD Active ABILIFY 15 MG ORAL TABS 1 tab daily ARIPIPRAZOLE 56606290337 No Longer Active Ahmet Carbajal MD Active PROZAC 20 MG ORAL CAPS 1 tab daily FLUOXETINE HCL 25076881069 No Longer Active Ahmet Carbajal MD Active AMBIEN 5 MG ORAL TABS 1 tab at bedtime ZOLPIDEM TARTRATE 40368449299 No Longer Active Ahmet Carbajal MD Active PREDNISONE 20 MG TAB 2 tabs daily for 4 days, 1 tab daily for 4 days, 1/2 tab daily for 4 days PREDNISONE 71368002115 No Longer Active Ahmet Carbaajl MD Active KEFLEX 500 MG CAP 1 po TID x 10 days CEPHALEXIN 13993347932 No Longer Active Vishal Hui MD Active SAPHRIS 5 MG SUBL 1 po bid ASENAPINE MALEATE 77338610897 No Longer Active Jillina Mauricio [employer] Active LATUDA 80 MG TABS Take one by mouth daily LURASIDONE HCL 14911819452 No Longer Active Jillina Frazell [employer] Active AMLODIPINE BESYLATE 5 MG TABS 1 tablet by mouth daily AMLODIPINE BESYLATE 21925402018 No Longer Active Jillina Mauricio WALTERSN Active AMITRIPTYLINE HCL 100 MG TAB one at hs AMITRIPTYLINE HCL 88251450909 No Longer Active Vishal Hui MD Active TRAZODONE HCL 100 MG TAB take 1 at bedtime TRAZODONE HCL 68400973096 No Longer Active Vishal Hui MD Active VYVANSE 40 MG CAPS 1 daily, LISDEXAMFETAMINE DIMESYLATE 87890017359 No Longer Active Vishal Hui MD Active IBUPROFEN 600 MG TAB 1 po TID PRN IBUPROFEN 41798604728 No Longer Active Vishal Hui MD Active PROZAC 20 MG CAP Take one by mouth daily FLUOXETINE HCL 78766370288 No Longer Active Vishal Hui MD Active BACTRIM DS 800-160 MG TABS 1 pill by mouth twice daily SULFAMETHOXAZOLE-TRIMETHOPRIM 63502856457 No Longer Active Sahara Rodriguez MD PhD Active DIFLUCAN 150 MG TAB 1 tablet by mouth daily FLUCONAZOLE 93673014207 No Longer Active Vishal Hui MD Active TIZANIDINE HCL 4 MG TABS 1 po q6hr PRN Muscle Spasm/Back Pain TIZANIDINE HCL 31850612955 Active Vishal Hui MD Active CLINDAMYCIN HCL 150 MG CAPS 1 four times a day CLINDAMYCIN HCL 51389036253 No Longer Active Neeraj Collins MD Active KEFLEX 500 MG ORAL CAPS 1 cap QID by mouth CEPHALEXIN 33566605839 No Longer Active Neeraj Collins MD Active DIFLUCAN 150 MG TABS 1 pill every other day x 2 doses FLUCONAZOLE 60275997969 No Longer Active Sahara Rodriguez MD PhD Active MELATONIN 3 MG CAPS 2 po q hs MELATONIN 02721064184 No Longer Active Sahara Rodriguez MD PhD Active MULTIVITAMINS CAPS Take one by mouth daily MULTIPLE VITAMIN 61279981783 No Longer Active Sahara Rodriguez MD PhD Active BACTRIM DS 800-160 MG TAB 1 tab by mouth twice daily TRIMETHOPRIM-SULFAMETHOXAZOLE 20520673598 No Longer Active Sahara Rodriguez MD PhD Active [facility] PROBIOTIC ORAL CHEW 2 daily po PROBIOTIC PRODUCT 90415569430 No Longer Active Sahara Rodriguez MD PhD Active BACTRIM DS 800-160 MG TABS 1 po BID x 7 days SULFAMETHOXAZOLE-TRIMETHOPRIM 99929743525 No Longer Active Vishal Hui MD Active CHANTIX STARTING MONTH EARNEST 0.5 MG X 11 & 1 MG X 42 TABS 0.5mg daily for 3 days , then 0.5mg BID for 4 days, then 1mg BID VARENICLINE TARTRATE 37819666559 No Longer Active TAMARA Gray Active VERAPAMIL HCL CR 120 MG TAB CR 1 po bid VERAPAMIL HCL 29991895363 No Longer Active Vishal Hui MD Active METOPROLOL SUCCINATE 50 MG TB24 1 tablet by mouth daily METOPROLOL SUCCINATE 76085394472 No Longer Active Vishal Hui MD Active SAPHRIS 10 MG SUBL 1 tab po bid ASENAPINE MALEATE 11271921862 No Longer Active Vishal Hui MD Active LISINOPRIL 20 MG TABS 1 tab po qd LISINOPRIL 53853137590 No Longer Active Vishal Hui MD Active LATUDA 20 MG TABS Take one by mouth daily LURASIDONE HCL 32863438905 No Longer Active Vishal Hui MD Active TRAZODONE HCL 50 MG TABS 1/2 tab po qd prn for anxiety TRAZODONE HCL 38774611164 No Longer Active Vishal Hui MD Active OMEPRAZOLE 20 MG TBEC 1 po q a.m. 30min prior to first food intake OMEPRAZOLE 22544472099 Active TAMARA Casey Active RANITIDINE HCL 150 MG CAPS 1 twice a day RANITIDINE HCL 53050722799 Active Jilljanee Martínez APRN Active LINZESS 290 MCG CAPS Take one by mouth daily LINACLOTIDE 63014729516 No Longer Active Vishal Hui MD Active SAPHRIS 5 MG SUBL 1 tab po qd ASENAPINE MALEATE 47925632702 No Longer Active Vishal Hui MD Active ZALEPLON 10 MG CAPS 1 cap po every other night ZALEPLON 09664440250 No Longer Active Vishal Hui MD Active LYRICA 50 MG CAPS 1 tab po TID PREGABALIN 71718139507 No Longer Active Vishal Hui MD Active LORATADINE 10 MG TABS 1 tab po qd LORATADINE 13049585533 No Longer Active Vishal Hui MD Active VERAPAMIL HCL ER 180 MG CR-TABS 1 tab po bid VERAPAMIL HCL 54219205307 No Longer Active Vishal Hui MD Active MIRALAX POWD 1 capfull once daily POLYETHYLENE GLYCOL 3350 32041562884 No Longer Active Vishal Hui MD Active PREDNISONE 20 MG TABS 1 tab po qd PREDNISONE 02231322547 No Longer Active Renzo Thornton DO Active LEVOFLOXACIN 500 MG TABS 1 tab po qd LEVOFLOXACIN 65546877895 No Longer Active Renzo W Norberto DO Active BUSPIRONE HCL 15 MG TABS 1 tab po TID BUSPIRONE HCL 37482137285 No Longer Active Renzo Thornton DO Active BENZTROPINE MESYLATE 1 MG TABS 1 tab po qd BENZTROPINE MESYLATE 40466810582 No Longer Active Renzo Thornton DO Active ATENOLOL 25 MG TABS 1 tab po qd ATENOLOL 99300907018 No Longer Active Renzo Thornton DO Active ESCITALOPRAM OXALATE 20 MG TABS 1 tab po qd ESCITALOPRAM OXALATE 88220851834 No Longer Active Renzo Thornton DO Active ADVAIR DISKUS 250-50 MCG/DOSE AEPB 1 puff BID FLUTICASONE-SALMETEROL 85724517859 No Longer Active Renzo Thornton DO Active PREDNISONE 20 MG TAB 2 tabs daily for 3 days, 1 tab daily for 3 days, 1/2 tab daily for 2 days PREDNISONE 93004472185 No Longer Active Vishal Hui MD Active CEFDINIR 300 MG CAPS by mouth twice a day CEFDINIR 94754295921 No Longer Active Vishal Hui MD Active LANSOPRAZOLE 30 MG CPDR 1 cap po qd LANSOPRAZOLE 98375537566 No Longer Active Vishal Hui MD Active BACLOFEN 20 MG TABS 1 tab po tid BACLOFEN 19786157864 No Longer Active Vishal Hui MD Active ADVAIR DISKUS 250-50 MCG/DOSE AEPB 1 puff BID ADVAIR DISKUS 250-50 MCG/DOSE AEPB FLUTICASONE-SALMETEROL Inactive ESCITALOPRAM OXALATE 20 MG TABS 1 tab po qd ESCITALOPRAM OXALATE 20 MG TABS 883413 ESCITALOPRAM OXALATE Inactive ATENOLOL 25 MG TABS 1 tab po qd ATENOLOL 25 MG TABS 970829 ATENOLOL Inactive BENZTROPINE MESYLATE 1 MG TABS 1 tab po qd BENZTROPINE MESYLATE 1 MG TABS 555464 BENZTROPINE MESYLATE Inactive BUSPIRONE HCL 15 MG TABS 1 tab po TID BUSPIRONE HCL 15 MG TABS 173241 BUSPIRONE HCL Inactive LEVOFLOXACIN 500 MG TABS 1 tab po qd LEVOFLOXACIN 500 MG TABS 780088 LEVOFLOXACIN Inactive PREDNISONE 20 MG TABS 1 tab po qd PREDNISONE 20 MG TABS 536448 PREDNISONE Inactive MIRALAX POWD 1 capfull once daily MIRALAX POWD 045659 POLYETHYLENE GLYCOL 3350 Inactive VERAPAMIL HCL ER 180 MG CR-TABS 1 tab po bid VERAPAMIL HCL ER 180 MG CR-TABS VERAPAMIL HCL Inactive LORATADINE 10 MG TABS 1 tab po qd LORATADINE 10 MG TABS 744083 LORATADINE Inactive LYRICA 50 MG CAPS 1 tab po TID LYRICA 50 MG CAPS PREGABALIN Inactive ZALEPLON 10 MG CAPS 1 cap po every other night ZALEPLON 10 MG CAPS 535037 ZALEPLON Inactive SAPHRIS 5 MG SUBL 1 tab po qd SAPHRIS 5 MG SUBL ASENAPINE MALEATE Inactive TRAZODONE HCL 50 MG TABS 1/2 tab po qd prn for anxiety TRAZODONE HCL 50 MG TABS 203256 TRAZODONE HCL Inactive LATUDA 20 MG TABS Take one by mouth daily LATUDA 20 MG TABS LURASIDONE HCL Inactive LISINOPRIL 20 MG TABS 1 tab po qd LISINOPRIL 20 MG TABS 755111 LISINOPRIL Inactive SAPHRIS 10 MG SUBL 1 [...] twice daily BACTRIM DS 800-160 MG TAB 821878 TRIMETHOPRIM-SULFAMETHOXAZOLE Inactive MULTIVITAMINS CAPS Take one by mouth daily MULTIVITAMINS CAPS MULTIPLE VITAMIN Inactive MELATONIN 3 MG CAPS 2 po q hs MELATONIN 3 MG CAPS 250671 MELATONIN Inactive KEFLEX 500 MG ORAL CAPS 1 cap QID by mouth KEFLEX 500 MG ORAL CAPS 622653 CEPHALEXIN Inactive CLINDAMYCIN HCL 150 MG CAPS 1 four times a day CLINDAMYCIN HCL 150 MG CAPS 005211 CLINDAMYCIN HCL Inactive DIFLUCAN 150 MG TAB 1 tablet by mouth daily DIFLUCAN 150 MG TAB 995885 FLUCONAZOLE Inactive PROZAC 20 MG CAP Take one by mouth daily PROZAC 20 MG CAP 653097 FLUOXETINE HCL Inactive IBUPROFEN 600 MG TAB 1 po TID PRN IBUPROFEN 600 MG TAB 667697 IBUPROFEN Inactive VYVANSE 40 MG CAPS 1 daily, VYVANSE 40 MG CAPS LISDEXAMFETAMINE DIMESYLATE Inactive TRAZODONE HCL 100 MG TAB take 1 at bedtime TRAZODONE HCL 100 MG TAB 843670 TRAZODONE HCL Inactive AMITRIPTYLINE HCL 100 MG TAB one at hs AMITRIPTYLINE HCL 100 MG TAB 280614 AMITRIPTYLINE HCL Inactive AMLODIPINE BESYLATE 5 MG TABS 1 tablet by mouth daily AMLODIPINE BESYLATE 5 MG TABS 842316 AMLODIPINE BESYLATE Inactive LATUDA 80 MG TABS Take one by mouth daily LATUDA 80 MG TABS LURASIDONE HCL Inactive SAPHRIS 5 MG SUBL 1 po bid SAPHRIS 5 MG SUBL ASENAPINE MALEATE Inactive PREDNISONE 20 MG TAB 2 tabs daily for 4 days, 1 tab daily for 4 days, 1/2 tab daily for 4 days PREDNISONE 20 MG TAB 245063 PREDNISONE Inactive AMBIEN 5 MG ORAL TABS 1 tab at bedtime AMBIEN 5 MG ORAL TABS 959272 ZOLPIDEM TARTRATE Inactive PROZAC 20 MG ORAL CAPS 1 tab daily PROZAC 20 MG ORAL CAPS 052972 FLUOXETINE HCL Inactive ABILIFY 15 MG ORAL TABS 1 tab daily ABILIFY 15 MG ORAL TABS 775665 ARIPIPRAZOLE Inactive METOPROLOL TARTRATE 50 MG TAB 1 po bid METOPROLOL TARTRATE 50 MG TAB 412293 METOPROLOL TARTRATE Inactive TRAMADOL HCL 50 MG TABS 1-2 po TID PRN Pain TRAMADOL HCL 50 MG TABS 257906 TRAMADOL HCL Inactive PIROXICAM 20 MG CAPS 1 cap po qd PRN Pain PIROXICAM 20 MG CAPS 028399 PIROXICAM Inactive MINIPRESS 2 MG CAPS 4 cap po at night MINIPRESS 2 MG CAPS 345363 PRAZOSIN HCL Inactive MIRALAX PACK 1 po qd PRN Constipation MIRALAX PACK 191719 POLYETHYLENE GLYCOL 3350 Inactive METOPROLOL TARTRATE 25 MG ORAL TABS 1/2 tablet twice daily for heart rate and blood pressure METOPROLOL TARTRATE 25 MG ORAL TABS 721597 METOPROLOL TARTRATE Inactive VALIUM 5 MG TAB Take 1-2 tablets daily VALIUM 5 MG TAB 023965 DIAZEPAM Inactive FLAGYL 500 MG TAB 1 tablet by mouth bid FLAGYL 500 MG TAB 071535 METRONIDAZOLE Inactive DICLOFENAC POTASSIUM TABS Take 1 tablet twice a day (pt. is not sure of the dose.) DICLOFENAC POTASSIUM TABS DICLOFENAC POTASSIUM TABS Inactive ZITHROMAX Z-EARNEST 250 MG TABS 2 today and then 1 daily for 4 days ZITHROMAX Z-EARNEST 250 MG TABS 7656946 AZITHROMYCIN Inactive PREDNISONE 20 MG TABS 2 daily for 5 days then 1 daily for 5 days PREDNISONE 20 MG TABS 929385 PREDNISONE Inactive PROAIR HFA 108 (90 BASE) MCG/ACT AERS 2 puffs four times a day as needed 2015 PROAIR HFA 108 (90 BASE) MCG/ACT AERS ALBUTEROL SULFATE Inactive HYDROCODONE-ACETAMINOPHEN 5-325 MG TABS 1 to 2 four times a day as needed for pain use until can be seen by specialist HYDROCODONE- ACETAMINOPHEN 5-325 MG TABS 710981 HYDROCODONE-ACETAMINOPHEN Inactive TESSALON PERLES 100 MG CAP 1 to 2 tablets by mouth 3 times daily as needed for cough TESSALON PERLES 100 MG CAP 390922 BENZONATATE Inactive CHANTIX STARTING MONTH EARNEST 0.5 [...] Pain 2015 DICLOFENAC SODIUM 50 MG TBEC 736615 DICLOFENAC SODIUM Inactive TOPAMAX 50 MG ORAL TABS 1 tab twice daily TOPAMAX 50 MG ORAL TABS 922288 TOPIRAMATE Inactive VIIBRYD 10 MG ORAL TABS Take 1 tablet once a day VIIBRYD 10 MG ORAL TABS VILAZODONE HCL Inactive LEVOFLOXACIN 500 MG ORAL TABS po daily LEVOFLOXACIN 500 MG ORAL TABS 368971 LEVOFLOXACIN Inactive METHYLPREDNISOLONE 4 MG ORAL TABS po daily METHYLPREDNISOLONE 4 MG ORAL TABS 667330 METHYLPREDNISOLONE Inactive OXYCODONE HCL ER 10 MG ORAL T12A 1/2 tab by mouth every 4 hours prn OXYCODONE HCL ER 10 MG ORAL T12A OXYCODONE HCL Inactive FLAGYL 500 MG TAB 1 tablet by mouth bid FLAGYL 500 MG TAB 062605 METRONIDAZOLE Inactive MONISTAT 7 COMBO PACK WOODROW 100 & 2 MG-% (9GM) VAG KIT 1 applicatorful per vagina q pm x 7 MONISTAT 7 COMBO PACK WOODROW 100 & 2 MG-% (9GM) VAG KIT MICONAZOLE NITRATE Inactive BACTRIM DS 800-160 MG TABS 1 twice a day BACTRIM DS 800-160 MG TABS 464334 SULFAMETHOXAZOLE-TRIMETHOPRIM Inactive TRAMADOL HCL 50 MG TABS 1/2-1 tab TID PRN TRAMADOL HCL 50 MG TABS 969174 TRAMADOL HCL Inactive ABILIFY MAINTENA 400 MG IM SUSR 400mg injection every 26 days ABILIFY MAINTENA 400 MG IM SUSR ARIPIPRAZOLE Inactive KLONOPIN 1 MG ORAL TABS 1 tab po TID KLONOPIN 1 MG ORAL TABS 920937 CLONAZEPAM Inactive ADVAIR DISKUS 250-50 MCG/DOSE INH AEPB 1 puff twice a day for asthma ADVAIR DISKUS 250-50 MCG/DOSE INH AEPB FLUTICASONE- SALMETEROL Inactive BENADRYL 25 MG CAP 4 po at bedtime for insomnia BENADRYL 25 MG CAP DIPHENHYDRAMINE HCL Inactive PREDNISONE 20 MG TABS 2 daily for 5 days then 1 daily for 5 days PREDNISONE 20 MG TABS 351967 PREDNISONE Inactive HYDROCODONE-ACETAMINOPHEN 5-325 MG ORAL TABS 1 tab two times a day HYDROCODONE-ACETAMINOPHEN 5-325 MG ORAL TABS 153774 HYDROCODONE-ACETAMINOPHEN Inactive ZITHROMAX Z-EARNEST 250 MG TABS 2 today and then 1 daily for 4 days ZITHROMAX Z-EARNEST 250 MG TABS 5700245 AZITHROMYCIN Inactive GUAIFENESIN-CODEINE 100-10 MG/5ML SYRP 5ml every 4 to 6 hours as needed for cough GUAIFENESIN-CODEINE 100-10 MG/5ML SYRP 105243 GUAIFENESIN-CODEINE Inactive HALOPERIDOL 10 MG ORAL TABS 1 tab q.d HALOPERIDOL 10 MG ORAL TABS 964432 HALOPERIDOL Inactive ASPIRIN 325 MG ORAL TABS 1 tab q.d ASPIRIN 325 MG ORAL TABS 662636 ASPIRIN Inactive FLUTICASONE PROPIONATE 50 MCG/ACT SUSP 2 sprays each nostril daily before bed. FLUTICASONE PROPIONATE 50 MCG/ACT SUSP 4768862 FLUTICASONE PROPIONATE Inactive ZOFRAN 4 MG TABS 1 po q6hr PRN Nausea ZOFRAN 4 MG TABS 995150 ONDANSETRON HCL Inactive KEFLEX 500 MG CAP 1 po qid KEFLEX 500 MG CAP 115415 CEPHALEXIN Inactive ACETAMINOPHEN-CODEINE 120-12 MG/5ML SOLN 5 ml by mouth every 4-6 hours if needed for cough ACETAMINOPHEN-CODEINE 120-12 MG/5ML SOLN 617329 ACETAMINOPHEN-CODEINE Inactive PREDNISONE 20 MG TAB 1 tablet daily x 4 days PREDNISONE 20 MG TAB 210007 PREDNISONE Inactive TROPICAMIDE 0.5 % OPHTH SOLN 1 drop PRN eye spasms TROPICAMIDE 0.5 % [facility] 457104 TROPICAMIDE Inactive LEVAQUIN 500 MG TABS 1 daily for infection LEVAQUIN 500 MG TABS 813980 LEVOFLOXACIN Inactive PREDNISONE 10 MG TABS 2 daily for 5 days then 1 daily for 5 days PREDNISONE 10 MG TABS 517844 PREDNISONE Inactive EQ NICOTINE 21 MG/24HR TRANS [...] for cough TESSALON PERLES 100 MG CAPS 721951 BENZONATATE Inactive CEFDINIR 300 MG CAPS by mouth twice a day CEFDINIR 300 MG CAPS 522104 CEFDINIR Inactive PREDNISONE 20 MG TAB 2 tabs daily for 3 days, 1 tab daily for 3 days, 1/2 tab daily for 2 days PREDNISONE 20 MG TAB 000577 PREDNISONE Inactive BACTRIM DS 800-160 MG TABS [...] x 10 days KEFLEX 500 MG CAP 165576 CEPHALEXIN Inactive Advance Directives Directive Description Start [...] % 11.0-15.0 platelet count 443 THOUSAND/UL 10*3/mm3 888-869 4483/03/01 mean platelet volume 8.2 fL 7.5-12.5 leukocyte [...] % 11.0-15.0 platelet count 349 THOUSAND/UL 10*3/mm3 [phone]/04/12 mean platelet volume 8.4 fL 7.5-12.5 Lab [...] 369 10^3/MM^3 10*3/mm3 142-424 Lab Report: Chlamydia/GC APTIMA/[id number] - Lab chlamydia DNA probe NOT DETECTED NOT DETECTED Lab Report: Chlamydia/GC APTIMA/[id number] - Microbiology Neisseria gonorrhoeae DNA probe NOT DETECTED NOT DETECTED Lab Report: Chlamydia/GC APTIMA/[id number], Urinalysis, Complete, with Reflex ... - Lab chlamydia DNA probe NOT DETECTED NOT DETECTED Lab Report: Chlamydia/GC APTIMA/[id number], Urinalysis, Complete, with Reflex ... - Microbiology Neisseria gonorrhoeae DNA probe NOT DETECTED NOT DETECTED Lab Report: Chlamydia/GC APTIMA/[id number], Urinalysis, Complete, with Reflex ... - Urinalysis microalbumin/total urine volume 2 mg/L Units converted. See lab report for original value. microalbumin/creatinine ratio, urine 9 MCG/MG CREAT mg/L <30 Lab Report: Comp. Metabolic Panel - Chemistry sodium, serum 140 mmol/L [phone]/08/08 carbon dioxide, venous blood 33.7 mmol/L 21.0-32.0 [...] 27.6 mmol/L 21.0-32.0 sodium, serum 142 mmol/L 982-402 0718/06/08 urea nitrogen, blood 8 mg/dL 7-18 creatinine, [...] mg/dL Encounters Code Encounter Date Provider Facility CPT-51057 Level 3 Est. Patient 10:00:25 CDT Suzan Boo [facility] CPT-46824 Level 3 Est. Patient 10:29:30 CDT Suzan Boo [facility] CPT-57347 Level 3 Est. Patient 11:04:38 CDT Renzo [facility] [facility] CPT-46651 Level 3 Est. 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 Patient 15:28:23 BUMPER OPERATOR Suzan Boo [facility] CPT-07565 Level 4 Est. Patient 10:20:54 BUMPER OPERATOR Suzan Boo [facility] CPT-06246 Level 3 Est. Patient 11:47:37 BUMPER OPERATOR Ahmet Carbajal MD [facility] CPT-78001 Level 3 Est. Patient 10:40:11 BUMPER OPERATOR Ahmet Carbajal MD [facility] CPT-54141 Level 3 Est. Patient 15:07:06 BUMPER OPERATOR Neeraj Collins MD [facility] CPT-07598 Level 4 Est. Patient 14:45:00 BUMPER OPERATOR Ahmet Carbajal MD [facility] CPT-70639 Level 3 Est. Patient 13:59:59 CDT Luigi Martínez [facility] CPT-85208 Level 3 Est. Patient 18:18:53 CDT Neeraj Collins MD [facility] CPT-00096 Level 3 Est. Patient 15:50:44 CDT Vishal Hui MD [facility] CPT-80105 Level 3 Est. Patient 11:36:17 CDT Ahmet Carbajal MD [facility] CPT-12486 Level 3 Est. Patient 13:29:16 CDT Vishal Hui MD [facility] CPT-52661 Level 3 Est. Patient 14:27:52 CDT Neeraj Collins MD [facility] CPT-04244 Level 3 Est. Patient 08:56:03 CDT Luigi Martínez [facility] CPT-83541 Level 4 Est. Patient 12:11:48 CDT Fabiola Johnson [facility] CPT-10349 Level 3 New Patient 16:53:37 CDT Albert Caldera MD [facility] CPT-23635 Level 3 Est. Patient 11:25:49 CDT Renzo Thornton DO [facility] CPT-51486 Level 3 Est. Patient 15:22:01 CDT Ahmet Carbajal MD [facility] CPT-04658 Level 4 Est. Patient 09:00:51 BUMPER OPERATOR Vishal Hui MD [facility] CPT-73695 Level 3 Est. Patient 11:37:33 BUMPER OPERATOR Vishal Hui MD [facility] CPT-27916 Level 3 Est. Patient 08:41:09 BUMPER OPERATOR Vishal Hui MD [facility] CPT-69740 Level 4 Est. Patient 10:19:35 BUMPER OPERATOR Vishal Hui MD [facility] CPT-18502 Level 3 Est. Patient 13:35:45 CDT Vishal Hui MD [facility] CPT-81603 Level 4 Est. Patient 10:08:37 CDT Vishal Hui MD [facility]-23455 Level 3 Est. Patient 11:22:10 CDT Vishal Hui MD [facility] CPT-59710 Level 3 Est. Patient 11:03:32 CDT Sahara Rodriguez MD [facility]-15587 Level 3 Est. Patient 09:41:35 CDT Vishal Hui MD [facility] CPT-41647 Level 3 Est. Patient 12:00:41 CDT Neeraj Collins MD [facility]-09723 Level 3 Est. Patient 09:16:24 CDT Vishal Hui MD [facility] CPT-72149 Level 4 Est. Patient 13:59:09 CDT Neeraj Collins MD [facility] CPT-67627 Level 3 Est. Patient 15:19:43 CDT Renzo Thornton DO [facility] CPT-17797 Level 3 Est. Patient 18:10:26 CDT Sahara Rodriguez MD [facility]-23340 Level 3 Est. Patient 14:49:50 CDT Vishal Hui MD [facility] CPT-88978 Level 4 Est. Patient 18:41:46 CDT Neeraj Collins MD [facility] CPT-50492 Level 4 Est. Patient 09:18:38 BUMPER OPERATOR Vishal Hui MD [facility] CPT-10091 Level 3 Est. Patient 14:43:55 BUMPER OPERATOR Vishal Hui MD [facility] CPT-81965 Level 3 Est. Patient 15:26:33 BUMPER OPERATOR Sahara Rodriguez MD [facility]-62583 Level 3 Est. Patient 10:32:14 BUMPER OPERATOR Vishal Hui MD [facility] CPT-39585 Level 3 Est. Patient 15:12:52 BUMPER OPERATOR Vishal Hui MD [facility] CPT-34508 Level 4 Est. Patient 09:19:27 CDT Vishal Hui MD [facility] CPT-08111 Level 3 Est. Patient 15:53:00 CDT Renzo Thornton [facility] CPT-57172 Level 3 Est. Patient 15:50:30 CDT Renzo Thornton [facility] CPT-22685 Level 3 Est. Patient 16:55:24 CDT Vishal Hui MD [facility] Procedures Code Procedure Name Date Entry Date Standard Description CPT-14825 Venipuncture Draw Fee 08:41:12 CDT CPT-35803 Abd compl w upright - XRAY USE ONLY 10:27:59 CDT 06/28 CPT-79222 Smoking Cessation counseling 11:15:58 BUMPER OPERATOR CPT-G0439 [facility] Annual Wellness Exam 09:30:58 BUMPER OPERATOR CPT-80015 TSH - LAB USE ONLY 08:50:26 BUMPER OPERATOR CPT-91233 CBC - LAB USE ONLY 08:50:26 BUMPER OPERATOR CPT-38497 Venipuncture Draw Fee 08:50:26 BUMPER OPERATOR CPT-70766 Abx/Therapy Injection 17:34:30 BUMPER OPERATOR CPT-22659 Nexplanon Removal with Reinsertion 14:09:32 CDT CPT-J7307 Nexplanon (Implant) 14:09:32 CDT CPT-OV Office Visit 14:09:32 CDT CPT-45637 UA w micro - LAB USE ONLY 16:21:13 CDT CPT-74630 Wet Mount - LAB USE ONLY 16:21:13 CDT CPT-49376 First Vx - Ix admin for Medicare patients 14:37:47 CDT CPT-80181 Fluzone Preservative Free Intramuscular Suspension 14:37 :47 CDT CPT-31885 Abx/Therapy Injection 13:54:22 CDT CPT-20834 Abx/Therapy Injection 08:47:09 CDT CPT-57813 Abx/Therapy Injection 13:29:56 CDT CPT-52163 Abx/Therapy Injection 08:36:16 CDT CPT-08958 Wet Mount - LAB USE ONLY 17:44:58 CDT CPT-64706 UA w micro - LAB USE ONLY 17:44:58 CDT CPT-16269 CMP - LAB USE ONLY 17:44:58 CDT CPT-86852 Venipuncture Draw Fee 17:44:58 CDT CPT-30990 Cervical Min 4V - XRAY USE ONLY 09:01:40 CDT CPT-08952 Chest 2V Frontal and Lat - XRAY USE ONLY 11:06:31 CDT CPT-73830 EKG Trac and Interp - XRAY USE ONLY 11:31:43 CDT 08/26 CPT-J3420 Vitamin B12 1000mcg (Cyanocobalamin) 08:10:26 BUMPER OPERATOR 04/12 CPT-25963 Abx/Therapy Injection 08:10:26 BUMPER OPERATOR CPT-G0438 Initial Annual Wellness Exam 19:01:01 BUMPER OPERATOR CPT-J3420 Vitamin B12 1000mcg (Cyanocobalamin) 16:57:46 CDT 08/14 CPT-40906 Recombivax HB Injection Suspension 5 MCG/0.5ML 08:37:50 BUMPER OPERATOR CPT-83895 Immunization Single Admin 08:37:50 BUMPER OPERATOR CPT-J3420 Vitamin B12 1000mcg (Cyanocobalamin) 08:32:16 BUMPER OPERATOR 03/11 CPT-67206 Abx/Therapy Injection 08:32:16 BUMPER OPERATOR CPT-48576 Chest 2V Frontal and Lat 11:46:38 BUMPER OPERATOR CPT-50748 Venipuncture Draw Fee 09:12:45 BUMPER OPERATOR CPT-J3420 Vitamin B12 1000mcg (Cyanocobalamin) 08:50:15 BUMPER OPERATOR 02/08 CPT-34603 Abx/Therapy Injection 08:50:15 BUMPER OPERATOR CPT-Cryo Cryotherapy 10:19:35 BUMPER OPERATOR CPT-000 Give Appropriate Flu Vaccine 09:22:16 CDT CPT-J3420 Vitamin B12 1000mcg (Cyanocobalamin) 19:08:57 CDT 01/11 CPT-66853 Abx/Therapy Injection 19:08:57 CDT CPT-J3420 Vitamin B12 1000mcg (Cyanocobalamin) 08:19:08 CDT 12/11 CPT-46386 Abx/Therapy Injection 08:19:08 CDT CPT-J3420 Vitamin B12 1000mcg (Cyanocobalamin) 14:48:00 CDT 11/09 CPT-29249 Abx/Therapy Injection 14:47:59 CDT CPT-J3420 Vitamin B12 1000mcg (Cyanocobalamin) 08:34:04 CDT 10/09 CPT-30470 Abx/Therapy Injection 08:34:04 CDT CPT-J3420 Vitamin B12 1000mcg (Cyanocobalamin) 09:18:52 CDT 09/11 CPT-79933 Abx/Therapy Injection 09:18:52 CDT CPT-J3420 Vitamin B12 1000mcg (Cyanocobalamin) 08:35:44 CDT 09/04 CPT-62143 Abx/Therapy Injection 08:35:44 CDT CPT-77426 Immunization Single Admin 11:07:16 CDT CPT-00123 Hepatitis B adult IM 11:07:16 CDT CPT-J3420 Vitamin B12 1000mcg (Cyanocobalamin) 11:00:49 CDT 08/28 CPT-J1040 Depo Medrol 80 mg (Methyl Prednisolone Acetate) 11:00: 49 CDT CPT-02323 Abx/Therapy Injection 11:00:49 CDT CPT-J1040 Depo Medrol 80 mg (Methyl Prednisolone Acetate) 09:16: 23 CDT CPT-J3420 Vitamin B12 1000mcg (Cyanocobalamin) 08:27:05 CDT 08/20 CPT-74966 Abx/Therapy Injection 08:27:05 CDT CPT-52201 Recombivax HB Injection Suspension 5 MCG/0.5ML 10:00:41 CDT CPT-38869 Administration single or combination vaccine inc oral 10 :00:41 CDT CPT-97329 Sono transvag pelvis non OB uterus ovaries cervix 16:36: 57 CDT CPT-81691 LS spine comp w obliq 09:50:55 BUMPER OPERATOR CPT-90946 Abd compl w upright 09:50:55 BUMPER OPERATOR CPT-J1100 Decadron 4mg (Dexamethasone) 15:51:24 BUMPER OPERATOR CPT-J1030 Depo Medrol 40 mg (Methyl Prednisolone Acetate) 15:51: 24 BUMPER OPERATOR CPT-19251 Abx/Therapy Injection 15:51:24 BUMPER OPERATOR CPT-J1100 Decadron 4mg (Dexamethasone) 15:26:33 BUMPER OPERATOR CPT-J1030 Depo Medrol 40 mg (Methyl Prednisolone Acetate) 15:26: 33 BUMPER OPERATOR CPT-57794 Sono retroperitoneal complete kidneys and bladder 17:15: 30 CDT CPT-54692 Abd compl w upright 16:09:25 CDT CPT-J1100 Decadron 8mg (Dexamethasone) 17:07:57 CDT CPT-58016 Abx/Therapy Injection 17:07:57 CDT CPT-J1100 Decadron 8mg (Dexamethasone) 16:55:24 CDT CPT-67430 Chest 2V Frontal and Lat 16:32:44 CDT
--- OUTSIDE RECORDS SUMMARY | 2016-11-04 14:12 | XMS REPORT | Clinical Summary ---
Author Author Admin, Dereck Organization [facility] [address] [facility] Address Unknown Phone Unavailable Allergies, Adverse Reactions, [...] sites Morbid obesity 278.01 Active Juliet Kimbrough FANS CLERK Morbid obesity 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 Active Juliet Kimbrough FANS CLERK Dependence on other enabling machines and devices [...] Shortness of breath 786.05 Active Fabiola Johnson FANS CLERK Shortness of breath Nocturnal hypoxia 799.02 Active Fabiola Johnson FANS CLERK Hypoxemia Neck pain 723.1 Active Jilljanee Martínez FANS CLERK Cervicalgia Vaginal discharge 623.5 Active Neeraj Collins [...] SUSR 400mg injection every 28 days ARIPIPRAZOLE 45789506817 Active Silvia Casey LPN Active FLAGYL 500 MG TAB 1 tablet by mouth bid METRONIDAZOLE 21193554300 Active Olimpia Raida Active FLUTICASONE PROPIONATE 50 MCG/ACT SUSP 2 sprays each nostril daily before bed. FLUTICASONE PROPIONATE 92179930584 Active Fabiola Johnson APRN Active VERAPAMIL HCL ER 120 MG ORAL CR-TABS 1 tab po daily for blood pressure 09/27 VERAPAMIL HCL 82016400630 Active Fabiola Johnson APRN Active ADZENYS XR-ODT 6.3 MG ORAL TBED 1 tab po daily for ADHD AMPHETAMINE 35604230742 Active Fabiola Johnson APRN Active BENADRYL 25 MG CAP 4 po at bedtime for insomnia DIPHENHYDRAMINE HCL 56525237892 Active Fabiola Johnson APRN Active KLONOPIN 1 MG ORAL TABS 1 tab po TID CLONAZEPAM 17724073679 Active Fabiola Johnson APRN Active VALIUM 5 MG TAB Take 1-2 tablets daily DIAZEPAM 65097155861 No Longer Active Fabiola Johnson APRN Active METOPROLOL TARTRATE 25 MG ORAL TABS 1/2 tablet twice daily for heart rate and blood pressure METOPROLOL TARTRATE 11048915024 No Longer Active Fabiola Johnson APRN Active MIRALAX ORAL POWD 17GMS DAILY IN WATER POLYETHYLENE GLYCOL 3350 96925075331 Active Vishal Hui MD Active VIIBRYD 10 MG ORAL TABS Take 1 tablet once a day VILAZODONE HCL 52136552829 Active Ahmet Carbajal MD Active DICLOFENAC POTASSIUM TABS Take 1 tablet twice a day (pt. is not sure of the dose.) DICLOFENAC POTASSIUM TABS 10394290809 Active Ahmet Carbajal MD Active MIRALAX PACK 1 po qd PRN Constipation POLYETHYLENE GLYCOL 3350 51862435132 No Longer Active Ahmet Carbajal MD Active MINIPRESS 2 MG CAPS 4 cap po at night PRAZOSIN HCL 41223653387 No Longer Active Ahmet Carbajal MD Active PIROXICAM 20 MG CAPS 1 cap po qd PRN Pain PIROXICAM 52954714329 No Longer Active Ahmet Carbajal MD Active TRAMADOL HCL 50 MG TABS 1-2 po TID PRN Pain TRAMADOL HCL 54676064898 No Longer Active Ahmet Carbajal MD Active METOPROLOL TARTRATE 50 MG TAB 1 po bid METOPROLOL TARTRATE 72556847082 No Longer Active Ahmet Carbajal MD Active ABILIFY 15 MG ORAL TABS 1 tab daily ARIPIPRAZOLE 34791852128 No Longer Active Ahmet Carbajal MD Active PROZAC 20 MG ORAL CAPS 1 tab daily FLUOXETINE HCL 38539935272 No Longer Active Ahmet Carbajal MD Active AMBIEN 5 MG ORAL TABS 1 tab at bedtime ZOLPIDEM TARTRATE 52106491848 No Longer Active Ahmet Carbajal MD Active PREDNISONE 20 MG TAB 2 tabs daily for 4 days, 1 tab daily for 4 days, 1/2 tab daily for 4 days PREDNISONE 32478692321 No Longer Active Ahmet Carbajal MD Active KEFLEX 500 MG CAP 1 po TID x 10 days CEPHALEXIN 72556864390 No Longer Active Vishal Hui MD Active IMITREX 50 MG ORAL TABS 1/2 tab every 6 hours prn SUMATRIPTAN SUCCINATE 74889321361 Active Luigi Martínez FANS CLERK Active TOPAMAX 50 MG ORAL TABS 1 tab twice daily TOPIRAMATE 97000954246 Active Vishal Hui MD Active SAPHRIS 5 MG SUBL 1 po bid ASENAPINE MALEATE 94725267984 No Longer Active Luigi Martínez APRN Active LATUDA 80 MG TABS Take one by mouth daily LURASIDONE HCL 94132436337 No Longer Active Luigi Martínez APRN Active AMLODIPINE BESYLATE 5 MG TABS 1 tablet by mouth daily AMLODIPINE BESYLATE 67376994566 No Longer Active Luigi Martínez FANS CLERK Active AMITRIPTYLINE HCL 100 MG TAB one at hs AMITRIPTYLINE HCL 84627610316 No Longer Active Vishal Hui MD Active TRAZODONE HCL 100 MG TAB take 1 at bedtime TRAZODONE HCL 37876625125 No Longer Active Vishal Hui MD Active VYVANSE 40 MG CAPS 1 daily, LISDEXAMFETAMINE DIMESYLATE 77160267830 No Longer Active Vishal Hui MD Active IBUPROFEN 600 MG TAB 1 po TID PRN IBUPROFEN 79738100355 No Longer Active Vishal Hui MD Active PROZAC 20 MG CAP Take one by mouth daily FLUOXETINE HCL 99075689327 No Longer Active Vishal Hui MD Active ZOFRAN 4 MG TABS 1 po q6hr PRN Nausea ONDANSETRON HCL Active Vishal Hui MD Active BACTRIM DS 800-160 MG TABS 1 pill by mouth twice daily SULFAMETHOXAZOLE-TRIMETHOPRIM 98548048711 No Longer Active Sahara Rodriguez MD PhD Active DIFLUCAN 150 MG TAB 1 tablet by mouth daily FLUCONAZOLE 74156465272 No Longer Active Vishal Hui MD Active TIZANIDINE HCL 4 MG TABS 1 po q6hr PRN Muscle Spasm/Back Pain TIZANIDINE HCL 61859227002 Active Vishal Hui MD Active CLINDAMYCIN HCL 150 MG CAPS 1 four times a day CLINDAMYCIN HCL 42458742715 No Longer Active Neeraj Collins MD Active KEFLEX 500 MG ORAL CAPS 1 cap QID by mouth CEPHALEXIN 65731247845 No Longer Active Neeraj Collins MD Active DIFLUCAN 150 MG TABS 1 pill every other day x 2 doses FLUCONAZOLE 77433875802 No Longer Active Sahara Rodriguez MD PhD Active MELATONIN 3 MG CAPS 2 po q hs MELATONIN 50662140072 No Longer Active Sahara Rodriguez MD PhD Active MULTIVITAMINS CAPS Take one by mouth daily MULTIPLE VITAMIN 93946956181 No Longer Active Sahara Rodriguez MD PhD Active BACTRIM DS 800-160 MG TAB 1 tab by mouth twice daily TRIMETHOPRIM-SULFAMETHOXAZOLE 56435030317 No Longer Active Sahara Rodriguez MD PhD Active [facility] PROBIOTIC ORAL CHEW 2 daily po PROBIOTIC PRODUCT 44830984983 No Longer Active Sahara Rodriguez MD PhD Active BACTRIM DS 800-160 MG TABS 1 po BID x 7 days SULFAMETHOXAZOLE-TRIMETHOPRIM 81305931573 No Longer Active Vishal Hui MD Active CHANTIX STARTING MONTH EARNEST 0.5 MG X 11 & 1 MG X 42 TABS 0.5mg daily for 3 days , then 0.5mg BID for 4 days, then 1mg BID VARENICLINE TARTRATE 21280317293 No Longer Active TAMARA Gray Active VERAPAMIL HCL CR 120 MG TAB CR 1 po bid VERAPAMIL HCL 88749304852 No Longer Active Vishal uHi MD Active METOPROLOL SUCCINATE 50 MG TB24 1 tablet by mouth daily METOPROLOL SUCCINATE 29950890096 No Longer Active Vishal Hui MD Active SAPHRIS 10 MG SUBL 1 tab po bid ASENAPINE MALEATE 73527207052 No Longer Active Vishal Hui MD Active LISINOPRIL 20 MG TABS 1 tab po qd LISINOPRIL 29338353362 No Longer Active Vishal Hui MD Active LATUDA 20 MG TABS Take one by mouth daily LURASIDONE HCL 49790523529 No Longer Active Vishal Hui MD Active TRAZODONE HCL 50 MG TABS 1/2 tab po qd prn for anxiety TRAZODONE HCL 75031126796 No Longer Active Vishal Hui MD Active OMEPRAZOLE 20 MG TBEC 1 po q a.m. 30min prior to first food intake OMEPRAZOLE 46860080452 Active Vishal Hui MD Active RANITIDINE HCL 150 MG CAPS 1 twice a day RANITIDINE HCL 17496891974 Active Jilljanee Martínez APRN Active LINZESS 290 MCG CAPS Take one by mouth daily LINACLOTIDE 11029331584 No Longer Active Vishal Hui MD Active SAPHRIS 5 MG SUBL 1 tab po qd ASENAPINE MALEATE 41172183772 No Longer Active Vishal Hui MD Active ZALEPLON 10 MG CAPS 1 cap po every other night ZALEPLON 19653828065 No Longer Active Vishal Hui MD Active LYRICA 50 MG CAPS 1 tab po TID PREGABALIN 63849387223 No Longer Active Vishal Hui MD Active LORATADINE 10 MG TABS 1 tab po qd LORATADINE 59106875244 No Longer Active Vishal Hui MD Active VERAPAMIL HCL ER 180 MG CR-TABS 1 tab po bid VERAPAMIL HCL 99519016080 No Longer Active Vishal Hui MD Active MIRALAX POWD 1 capfull once daily POLYETHYLENE GLYCOL 3350 91778989445 No Longer Active Vishal Hui MD Active PREDNISONE 20 MG TABS 1 tab po qd PREDNISONE 56799412643 No Longer Active Renzo Thornton DO Active LEVOFLOXACIN 500 MG TABS 1 tab po qd LEVOFLOXACIN 22247532349 No Longer Active Renzo Thornton DO Active BUSPIRONE HCL 15 MG TABS 1 tab po TID BUSPIRONE HCL 83625645182 No Longer Active Renzo Thornton DO Active BENZTROPINE MESYLATE 1 MG TABS 1 tab po qd BENZTROPINE MESYLATE 85680578542 No Longer Active Renzo Thornton DO Active ATENOLOL 25 MG TABS 1 tab po qd ATENOLOL 99579925933 No Longer Active Renzo Thornton DO Active ESCITALOPRAM OXALATE 20 MG TABS 1 tab po qd ESCITALOPRAM OXALATE 58202253403 No Longer Active Renzo Thornton DO Active ADVAIR DISKUS 250-50 MCG/DOSE AEPB 1 puff BID FLUTICASONE-SALMETEROL 24158756017 No Longer Active Renzo Thornton DO Active PREDNISONE 20 MG TAB 2 tabs daily for 3 days, 1 tab daily for 3 days, 1/2 tab daily for 2 days PREDNISONE 02549379535 No Longer Active Vishal Hui MD Active CEFDINIR 300 MG CAPS by mouth twice a day CEFDINIR 59406943762 No Longer Active Vishal Hui MD Active LANSOPRAZOLE 30 MG CPDR 1 cap po qd LANSOPRAZOLE 96413969900 No Longer Active Vishal Hui MD Active BACLOFEN 20 MG TABS 1 tab po tid BACLOFEN 60443639318 No Longer Active Vishal Hui MD Active ADVAIR DISKUS 250-50 MCG/DOSE AEPB 1 puff BID ADVAIR DISKUS 250-50 MCG/DOSE AEPB FLUTICASONE-SALMETEROL Inactive ESCITALOPRAM OXALATE 20 MG TABS 1 tab po qd ESCITALOPRAM OXALATE 20 MG TABS 876489 ESCITALOPRAM OXALATE Inactive ATENOLOL 25 MG TABS 1 tab po qd ATENOLOL 25 MG TABS 347132 ATENOLOL Inactive BENZTROPINE MESYLATE 1 MG TABS 1 tab po qd BENZTROPINE MESYLATE 1 MG TABS 541998 BENZTROPINE MESYLATE Inactive BUSPIRONE HCL 15 MG TABS 1 tab po TID BUSPIRONE HCL 15 MG TABS 598033 BUSPIRONE HCL Inactive LEVOFLOXACIN 500 MG TABS 1 tab po qd LEVOFLOXACIN 500 MG TABS 090252 LEVOFLOXACIN Inactive PREDNISONE 20 MG TABS 1 tab po qd PREDNISONE 20 MG TABS 127199 PREDNISONE Inactive MIRALAX POWD 1 capfull once daily MIRALAX POWD 810750 POLYETHYLENE GLYCOL 3350 Inactive VERAPAMIL HCL ER 180 MG CR-TABS 1 tab po bid VERAPAMIL HCL ER 180 MG CR-TABS VERAPAMIL HCL Inactive LORATADINE 10 MG TABS 1 tab po qd LORATADINE 10 MG TABS 405931 LORATADINE Inactive LYRICA 50 MG CAPS 1 tab po TID LYRICA 50 MG CAPS PREGABALIN Inactive ZALEPLON 10 MG CAPS 1 cap po every other night ZALEPLON 10 MG CAPS 335191 ZALEPLON Inactive SAPHRIS 5 MG SUBL 1 tab po qd SAPHRIS 5 MG SUBL ASENAPINE MALEATE Inactive TRAZODONE HCL 50 MG TABS 1/2 tab po qd prn for anxiety TRAZODONE HCL 50 MG TABS 561646 TRAZODONE HCL Inactive LATUDA 20 MG TABS Take one by mouth daily LATUDA 20 MG TABS LURASIDONE HCL Inactive LISINOPRIL 20 MG TABS 1 tab po qd LISINOPRIL 20 MG TABS 581573 LISINOPRIL Inactive SAPHRIS 10 MG SUBL 1 [...] twice daily BACTRIM DS 800-160 MG TAB 866752 TRIMETHOPRIM-SULFAMETHOXAZOLE Inactive MULTIVITAMINS CAPS Take one by mouth daily MULTIVITAMINS CAPS MULTIPLE VITAMIN Inactive MELATONIN 3 MG CAPS 2 po q hs MELATONIN 3 MG CAPS 897136 MELATONIN Inactive KEFLEX 500 MG ORAL CAPS 1 cap QID by mouth KEFLEX 500 MG ORAL CAPS 310937 CEPHALEXIN Inactive CLINDAMYCIN HCL 150 MG CAPS 1 four times a day CLINDAMYCIN HCL 150 MG CAPS 584278 CLINDAMYCIN HCL Inactive DIFLUCAN 150 MG TAB 1 tablet by mouth daily DIFLUCAN 150 MG TAB 235165 FLUCONAZOLE Inactive PROZAC 20 MG CAP Take one by mouth daily PROZAC 20 MG CAP 310459 FLUOXETINE HCL Inactive IBUPROFEN 600 MG TAB 1 po TID PRN IBUPROFEN 600 MG TAB 284587 IBUPROFEN Inactive VYVANSE 40 MG CAPS 1 daily, VYVANSE 40 MG CAPS LISDEXAMFETAMINE DIMESYLATE Inactive TRAZODONE HCL 100 MG TAB take 1 at bedtime TRAZODONE HCL 100 MG TAB 303813 TRAZODONE HCL Inactive AMITRIPTYLINE HCL 100 MG TAB one at hs AMITRIPTYLINE HCL 100 MG TAB 274783 AMITRIPTYLINE HCL Inactive AMLODIPINE BESYLATE 5 MG TABS 1 tablet by mouth daily AMLODIPINE BESYLATE 5 MG TABS 459795 AMLODIPINE BESYLATE Inactive LATUDA 80 MG TABS Take one by mouth daily LATUDA 80 MG TABS LURASIDONE HCL Inactive SAPHRIS 5 MG SUBL 1 po bid SAPHRIS 5 MG SUBL ASENAPINE MALEATE Inactive PREDNISONE 20 MG TAB 2 tabs daily for 4 days, 1 tab daily for 4 days, 1/2 tab daily for 4 days PREDNISONE 20 MG TAB 517178 PREDNISONE Inactive AMBIEN 5 MG ORAL TABS 1 tab at bedtime AMBIEN 5 MG ORAL TABS 690274 ZOLPIDEM TARTRATE Inactive PROZAC 20 MG ORAL CAPS 1 tab daily PROZAC 20 MG ORAL CAPS 072234 FLUOXETINE HCL Inactive ABILIFY 15 MG ORAL TABS 1 tab daily ABILIFY 15 MG ORAL TABS 694223 ARIPIPRAZOLE Inactive METOPROLOL TARTRATE 50 MG TAB 1 po bid METOPROLOL TARTRATE 50 MG TAB 169728 METOPROLOL TARTRATE Inactive TRAMADOL HCL 50 MG TABS 1-2 po TID PRN Pain TRAMADOL HCL 50 MG TABS 650837 TRAMADOL HCL Inactive PIROXICAM 20 MG CAPS 1 cap po qd PRN Pain PIROXICAM 20 MG CAPS 991850 PIROXICAM Inactive MINIPRESS 2 MG CAPS 4 cap po at night MINIPRESS 2 MG CAPS 424345 PRAZOSIN HCL Inactive MIRALAX PACK 1 po qd PRN Constipation MIRALAX PACK 246037 POLYETHYLENE GLYCOL 3350 Inactive METOPROLOL TARTRATE 25 MG ORAL TABS 1/2 tablet twice daily for heart rate and blood pressure METOPROLOL TARTRATE 25 MG ORAL TABS 670360 METOPROLOL TARTRATE Inactive VALIUM 5 MG TAB Take 1-2 tablets daily VALIUM 5 MG TAB 625307 DIAZEPAM Inactive CEFDINIR 300 MG CAPS by mouth twice a day CEFDINIR 300 MG CAPS 312404 CEFDINIR Inactive PREDNISONE 20 MG TAB 2 tabs daily for 3 days, 1 tab daily for 3 days, 1/2 tab daily for 2 days PREDNISONE 20 MG TAB 529599 PREDNISONE Inactive BACTRIM DS 800-160 MG TABS 1 po BID x 7 days BACTRIM DS 800-160 MG TABS 19820521 SULFAMETHOXAZOLE-TRIMETHOPRIM Inactive DIFLUCAN 150 MG TABS 1 pill every other day x 2 doses DIFLUCAN 150 MG TABS 829822 FLUCONAZOLE Inactive BACTRIM DS 800-160 MG TABS 1 pill by mouth twice daily BACTRIM DS 800-160 MG TABS 19820521 SULFAMETHOXAZOLE-TRIMETHOPRIM Inactive KEFLEX 500 MG CAP 1 po TID x 10 days KEFLEX 500 MG CAP 261141 CEPHALEXIN Inactive Advance Directives Directive Description Start [...] % 11.6-14.8 platelet count 394 10^3/MM^3 10*3/mm3 398-766 5687/01/11 leukocyte count, blood 13.8 10^3/MM^3 10*3/mm3 4.6-10.2 [...] Panel - Chemistry sodium, serum 139 mmol/L 513-740 1374/12/03 carbon dioxide, venous blood 28.5 mmol/L 21.0-32.0 [...] 5.5 % 4.3-6.0 cholesterol, serum 159 mg/dL 096-420 5204/12/03 triglyceride, serum, fasting 118 mg/dL 30-200 HDL [...] Panel - Chemistry sodium, serum 139 mmol/L 664-375 6506/12/22 carbon dioxide, venous blood 26.8 mmol/L 21.0-32.0 potassium, serum 4.2 mmol/L 3.5-5.2 chloride, serum 103 mmol/L 98-107 blood glucose 115 mg/dL 65-110 urea nitrogen, blood 20 mg/dL 7-18 creatinine, serum 0.90 mg/dL 0.55-1.30 alanine aminotransferase (SGPT), serum 38 U/L aspartate aminotransferase (SGOT), serum 19 U/L 15-37 calcium, serum 8.6 mg/dL 8.5-10.1 bilirubin, serum, total 0.30 mg/dL 0.00-1.00 sodium, serum 139 mmol/L 256-384 8330/01/11 carbon dioxide, venous blood 26.6 mmol/L 21.0-32.0 potassium, serum 4.1 mmol/L 3.5-5.2 chloride, serum 100 mmol/L 98-107 blood glucose 86 mg/dL 65-110 urea nitrogen, blood 16 mg/dL 7-18 creatinine, serum 1.00 mg/dL 0.55-1.30 alanine aminotransferase (SGPT), serum 48 U/L -78 aspartate aminotransferase (SGOT), serum 17 U/L 15-37 calcium, serum 9.1 mg/dL 8.5-10.1 bilirubin, serum, total 0.40 mg/dL 0.00-1.00 sodium, serum 142 mmol/L 782-616 6284/06/08 carbon dioxide, venous blood 27.6 mmol/L 21.0-32.0 potassium, serum 4.0 mmol/L 3.5-5.2 chloride, serum 105 mmol/L 98-107 blood glucose 95 mg/dL 65-110 urea nitrogen, blood 8 mg/dL 7-18 creatinine, serum 0.75 mg/dL 0.55-1.30 alanine aminotransferase (SGPT), serum 49 U/L -78 aspartate aminotransferase (SGOT), serum 28 U/L 15-37 calcium, serum 9.4 mg/dL 8.5-10.1 bilirubin, serum, total 0.30 mg/dL 0.00-1.00 sodium, serum 140 mmol/L 925-516 9602/08/08 carbon dioxide, venous blood 33.7 mmol/L 21.0-32.0 [...] Rate - Chemistry sodium, serum 139 mmol/L 746-569 9199/12/11 carbon dioxide, venous blood 25.4 mmol/L 21.0-32.0 [...] mg/dL Encounters Code Encounter Date Provider Facility CPT-60931 Level 3 Est. Patient 14:27:52 CDT Neeraj Collins MD [facility] CPT-80797 Level 3 Est. Patient 08:56:03 CDT Luigi Martínez [facility] CPT-88104 Level 4 Est. Patient 12:11:48 CDT Fabiola Johnson [facility] CPT-52285 Level 3 New Patient 16:53:37 CDT Albert Caldera MD [facility] CPT-94707 Level 3 Est. Patient 11:25:49 CDT Renzo Thornton DO [facility] CPT-78650 Level 3 Est. Patient 15:22:01 CDT Ahmet Carbajal MD [facility] CPT-91966 Level 4 Est. Patient 09:00:51 KETTLE CHIPPER Vishal Hui MD [facility] CPT-50568 Level 3 Est. Patient 11:37:33 KETTLE CHIPPER Vishal Hui MD [facility] CPT-60644 Level 3 Est. Patient 08:41:09 KETTLE CHIPPER Vishal Hui MD [facility] CPT-25201 Level 4 Est. Patient 10:19:35 KETTLE CHIPPER Vishal Hui MD [facility] CPT-03626 Level 3 Est. Patient 13:35:45 CDT Vishal Hui MD [facility] CPT-59812 Level 4 Est. Patient 10:08:37 CDT Vishal Hui MD [facility] CPT-56847 Level 3 Est. Patient 11:22:10 CDT Vishal Hui MD [facility] CPT-83782 Level 3 Est. Patient 11:03:32 CDT Sahara Rodriguez MD [facility] CPT-18168 Level 3 Est. Patient 09:41:35 CDT Vishal Hui MD [facility] CPT-04049 Level 3 Est. Patient 12:00:41 CDT Neeraj Collins MD [facility] CPT-53090 Level 3 Est. Patient 09:16:24 CDT Vishal Hui MD [facility] CPT-52722 Level 4 Est. Patient 13:59:09 CDT Neeraj Collins MD [facility] CPT-35749 Level 3 Est. Patient 15:19:43 CDT Renzo Thornton DO [facility] CPT-63447 Level 3 Est. Patient 18:10:26 CDT Sahara Rodriguez MD [facility]-26517 Level 3 Est. Patient 14:49:50 CDT Vishal Hui MD [facility] CPT-89409 Level 4 Est. Patient 18:41:46 CDT Neeraj Collins MD [facility] CPT-57410 Level 4 Est. Patient 09:18:38 KETTLE CHIPPER Vishal Hui MD [facility] CPT-29911 Level 3 Est. Patient 14:43:55 KETTLE CHIPPER Vishal Hui MD [facility] CPT-82585 Level 3 Est. Patient 15:26:33 KETTLE CHIPPER Sahara Rodriguez MD [facility] CPT-43022 Level 3 Est. Patient 10:32:14 KETTLE CHIPPER Vishal Hui MD [facility] CPT-83249 Level 3 Est. Patient 15:12:52 KETTLE CHIPPER Vishal Hui MD [facility] CPT-05884 Level 4 Est. Patient 09:19:27 CDT Vishal Hui MD [facility] CPT-79023 Level 3 Est. Patient 15:53:00 CDT Renzo Thornton [facility] CPT-30587 Level 3 Est. Patient 15:50:30 CDT Renzo Thornton [facility] CPT-89769 Level 3 Est. Patient 16:55:24 CDT Vishal Hui MD [facility] Procedures Code Procedure Name Date Entry Date Standard Description CPT-20088 Abx/Therapy Injection 13:29:56 CDT CPT-09925 Abx/Therapy Injection 08:36:16 CDT CPT-33199 Wet Mount - LAB USE ONLY 17:44:58 CDT CPT-01254 UA w micro - LAB USE ONLY 17:44:58 CDT CPT-84007 CMP - LAB USE ONLY 17:44:58 CDT CPT-58456 Venipuncture Draw Fee 17:44:58 CDT CPT-28802 Cervical Min 4V - XRAY USE ONLY 09:01:40 CDT CPT-23084 Chest 2V Frontal and Lat - XRAY USE ONLY 11:06:31 CDT CPT-16153 EKG Trac and Interp - XRAY USE ONLY 11:31:43 CDT 08/26 CPT-J3420 Vitamin B12 1000mcg (Cyanocobalamin) 08:10:26 KETTLE CHIPPER 04/12 CPT-25062 Abx/Therapy Injection 08:10:26 KETTLE CHIPPER CPT-G0438 Initial Annual Wellness Exam 19:01:01 KETTLE CHIPPER CPT-J3420 Vitamin B12 1000mcg (Cyanocobalamin) 16:57:46 CDT 08/14 CPT-51355 Recombivax HB Injection Suspension 5 MCG/0.5ML 08:37:50 KETTLE CHIPPER CPT-20393 Immunization Single Admin 08:37:50 KETTLE CHIPPER CPT-J3420 Vitamin B12 1000mcg (Cyanocobalamin) 08:32:16 KETTLE CHIPPER 03/11 CPT-52572 Abx/Therapy Injection 08:32:16 KETTLE CHIPPER CPT-26317 Chest 2V Frontal and Lat 11:46:38 KETTLE CHIPPER CPT-58038 Venipuncture Draw Fee 09:12:45 KETTLE CHIPPER CPT-J3420 Vitamin B12 1000mcg (Cyanocobalamin) 08:50:15 KETTLE CHIPPER 02/08 CPT-26434 Abx/Therapy Injection 08:50:15 KETTLE CHIPPER CPT-Cryo Cryotherapy 10:19:35 KETTLE CHIPPER CPT-000 Give Appropriate Flu Vaccine 09:22:16 CDT CPT-J3420 Vitamin B12 1000mcg (Cyanocobalamin) 19:08:57 CDT 01/11 CPT-45710 Abx/Therapy Injection 19:08:57 CDT CPT-J3420 Vitamin B12 1000mcg (Cyanocobalamin) 08:19:08 CDT 12/11 CPT-66558 Abx/Therapy Injection 08:19:08 CDT CPT-J3420 Vitamin B12 1000mcg (Cyanocobalamin) 14:48:00 CDT 11/09 CPT-89645 Abx/Therapy Injection 14:47:59 CDT CPT-J3420 Vitamin B12 1000mcg (Cyanocobalamin) 08:34:04 CDT 10/09 CPT-33279 Abx/Therapy Injection 08:34:04 CDT CPT-J3420 Vitamin B12 1000mcg (Cyanocobalamin) 09:18:52 CDT 09/11 CPT-19405 Abx/Therapy Injection 09:18:52 CDT CPT-J3420 Vitamin B12 1000mcg (Cyanocobalamin) 08:35:44 CDT 09/04 CPT-22201 Abx/Therapy Injection 08:35:44 CDT CPT-31636 Immunization Single Admin 11:07:16 CDT CPT-56548 Hepatitis B adult IM 11:07:16 CDT CPT-J3420 Vitamin B12 1000mcg (Cyanocobalamin) 11:00:49 CDT 08/28 CPT-J1040 Depo Medrol 80 mg (Methyl Prednisolone Acetate) 11:00: 49 CDT CPT-47406 Abx/Therapy Injection 11:00:49 CDT CPT-J1040 Depo Medrol 80 mg (Methyl Prednisolone Acetate) 09:16: 23 CDT CPT-J3420 Vitamin B12 1000mcg (Cyanocobalamin) 08:27:05 CDT 08/20 CPT-84005 Abx/Therapy Injection 08:27:05 CDT CPT-19496 Recombivax HB Injection Suspension 5 MCG/0.5ML 10:00:41 CDT CPT-57263 Administration single or combination vaccine inc oral 10 :00:41 CDT CPT-40920 Sono transvag pelvis non OB uterus ovaries cervix 16:36: 57 CDT CPT-11632 LS spine comp w obliq 09:50:55 KETTLE CHIPPER CPT-17961 Abd compl w upright 09:50:55 KETTLE CHIPPER CPT-J1100 Decadron 4mg (Dexamethasone) 15:51:24 KETTLE CHIPPER CPT-J1030 Depo Medrol 40 mg (Methyl Prednisolone Acetate) 15:51: 24 KETTLE CHIPPER CPT-95128 Abx/Therapy Injection 15:51:24 KETTLE CHIPPER CPT-J1100 Decadron 4mg (Dexamethasone) 15:26:33 KETTLE CHIPPER CPT-J1030 Depo Medrol 40 mg (Methyl Prednisolone Acetate) 15:26: 33 KETTLE CHIPPER CPT-72553 Sono retroperitoneal complete kidneys and bladder 17:15: 30 CDT CPT-12581 Abd compl w upright 16:09:25 CDT CPT-J1100 Decadron 8mg (Dexamethasone) 17:07:57 CDT CPT-89389 Abx/Therapy Injection 17:07:57 CDT CPT-J1100 Decadron 8mg (Dexamethasone) 16:55:24 CDT CPT-38325 Chest 2V Frontal and Lat 16:32:44 CDT
--- OUTSIDE RECORDS SUMMARY | 2016-11-04 14:12 | XMS REPORT ---
Author Author [facility] Medical Staff Organization [facility] Address [address] [place], [place] [address] Phone [phone] Care Team Providers Care Compliance Paralegal Name Role Phone TINO ABRAMS MD PP [phone] TINO ABRAMS MD, PP [phone] Summary purpose TRANSITION OF CARE AUTO GENERATION [...]
--- OUTSIDE RECORDS SUMMARY | 2016-11-04 14:12 | XMS REPORT ---
Author Author [facility] Medical Staff Organization [facility] Address [address] [place], [place] [address] Phone [phone] Summary purpose TRANSITION OF CARE AUTO GENERATION [...] Code Type Description Date Performed Performing Physician [id number] CPT-4 ALS1-EMERGENCY 09-15-2015 MINO JEFF [id number] CPT-4 GROUND MILEAGE 09-15-2015 MINO JEFF Functional status No functional or cognitive status [...]
--- OUTSIDE RECORDS SUMMARY | 2016-11-04 14:14 | XMS REPORT | Clinical Summary ---
Author Author Admin, [employer] Organization [facility] Address Unknown Phone Unavailable Allergies, Adverse [...] Shortness of breath 786.05 Active Fabiola Johnson [employer]ICER Shortness of breath Nocturnal hypoxia 799.02 Active Faibola Johnson [employer] OFFICER Hypoxemia Neck pain 723.1 Active Luigi Martínez [employer] OFFICER Cervicalgia Vaginal discharge 623.5 Active Neeraj Collins MD Leukorrhea, not specified as infective Abdominal pain, right lower quadrant 789.03 Active Neeraj Collins MD Abdominal pain, right lower quadrant Calf pain, left 729.5 Active Vishal Hui MD Pain in limb Asthma, acute 493.92 Active Ahmet Carbajal MD Asthma, unspecified with (acute) exacerbation Anxiety Disorder ICD-300.00 Inactive Vishal Hui MD [...] change ICD-301.9 Jim Hui MD Leukocytosis ICD-288.60 Jmi Hui MD UTI ICD-599.0 Inactive Vishal Hui [...] then 1 daily for 4 days AZITHROMYCIN 05404473090 Active Ahmet Carbajal MD Active PREDNISONE 20 MG TABS 2 daily for 5 days then 1 daily for 5 days PREDNISONE 90987992609 Active Ahmet Carbajal MD Active PROAIR HFA 108 (90 BASE) MCG/ACT AERS 2 puffs four times a day as needed 2015 ALBUTEROL SULFATE 58392300292 Active Ahmet Carbajal MD Active HYDROCODONE-ACETAMINOPHEN 5-325 MG TABS 1 to 2 four times a day as needed for pain use until can be seen by specialist HYDROCODONE- ACETAMINOPHEN 96659984438 Active Lynda Xiao CLAIM TRAINEE Active DICLOFENAC SODIUM 50 MG TBEC 1 tablet by mouth four times daily PRN Pain 2015 DICLOFENAC SODIUM 33783567854 Active Vishal Hui MD Active DICLOFENAC POTASSIUM TABS Take 1 tablet twice a day (pt. is not sure of the dose.) DICLOFENAC POTASSIUM TABS 76949843572 No Longer Active Vishal Hui MD Active VERAPAMIL HCL ER 120 MG ORAL CR-TABS Take 1 tablet by mouth twice a day. VERAPAMIL HCL 70611783442 Active Vishal Hui MD Active FLAGYL 500 MG TAB 1 tablet by mouth bid METRONIDAZOLE 15497597517 No Longer Active Vishal Hui MD Active ABILIFY MAINTENA 400 MG IM SUSR 400mg injection every 28 days ARIPIPRAZOLE 62852932647 Active Silvia Cedeno Carmela CLAIM TRAINEE Active FLUTICASONE PROPIONATE 50 MCG/ACT SUSP 2 sprays each nostril daily before bed. FLUTICASONE PROPIONATE 79888598632 Active Fabiola Johnson APRN Active ADZENYS XR-ODT 6.3 MG ORAL TBED 1 tab po daily for ADHD AMPHETAMINE 31637884778 Active Fabiola Johnson APRN Active BENADRYL 25 MG CAP 4 po at bedtime for insomnia DIPHENHYDRAMINE HCL 32180105897 Active Fabiola Johnson APRN Active KLONOPIN 1 MG ORAL TABS 1 tab po TID CLONAZEPAM 37333272052 Active Fabiola Johnson APRN Active VALIUM 5 MG TAB Take 1-2 tablets daily DIAZEPAM 09998563198 No Longer Active Fabiola Johnson APRN Active METOPROLOL TARTRATE 25 MG ORAL TABS 1/2 tablet twice daily for heart rate and blood pressure METOPROLOL TARTRATE 24006228917 No Longer Active Fabiola Johnson APRN Active MIRALAX ORAL POWD 17GMS DAILY IN WATER POLYETHYLENE GLYCOL 3350 06891560605 Active Vishal Hui MD Active VIIBRYD 10 MG ORAL TABS Take 1 tablet once a day VILAZODONE HCL 84661486496 Active Ahmet Carbajal MD Active MIRALAX PACK 1 po qd PRN Constipation POLYETHYLENE GLYCOL 3350 30248927921 No Longer Active Ahmet Carbajal MD Active MINIPRESS 2 MG CAPS 4 cap po at night PRAZOSIN HCL 60104271987 No Longer Active Ahmet Carbajal MD Active PIROXICAM 20 MG CAPS 1 cap po qd PRN Pain PIROXICAM 46724549823 No Longer Active Ahmet Carbajal MD Active TRAMADOL HCL 50 MG TABS 1-2 po TID PRN Pain TRAMADOL HCL 54988319007 No Longer Active Ahmet Carbajal MD Active METOPROLOL TARTRATE 50 MG TAB 1 po bid METOPROLOL TARTRATE 23092215682 No Longer Active Ahmet Carbajal MD Active ABILIFY 15 MG ORAL TABS 1 tab daily ARIPIPRAZOLE 36252951539 No Longer Active Ahmet Carbajal MD Active PROZAC 20 MG ORAL CAPS 1 tab daily FLUOXETINE HCL 25024775872 No Longer Active Ahmet Carbajal MD Active AMBIEN 5 MG ORAL TABS 1 tab at bedtime ZOLPIDEM TARTRATE 49856131975 No Longer Active Ahmet Carbajal MD Active PREDNISONE 20 MG TAB 2 tabs daily for 4 days, 1 tab daily for 4 days, 1/2 tab daily for 4 days PREDNISONE 00880544807 No Longer Active Ahmet Carbajal MD Active KEFLEX 500 MG CAP 1 po TID x 10 days CEPHALEXIN 13877647245 No Longer Active Vishal Hui MD Active IMITREX 50 MG ORAL TABS 1/2 tab every 6 hours prn SUMATRIPTAN SUCCINATE 38205794884 Active Jillina Fralebron NORIEGA Active TOPAMAX 50 MG ORAL TABS 1 tab twice daily TOPIRAMATE 87459626301 Active iVshal Hui MD Active SAPHRIS 5 MG SUBL 1 po bid ASENAPINE MALEATE 00823284156 No Longer Active Luigi Martínez APRN Active LATUDA 80 MG TABS Take one by mouth daily LURASIDONE HCL 30544535507 No Longer Active Pacollina Mauricio NORIEGA Active AMLODIPINE BESYLATE 5 MG TABS 1 tablet by mouth daily AMLODIPINE BESYLATE 68883400687 No Longer Active Jillina Mauricio NORIEGA Active AMITRIPTYLINE HCL 100 MG TAB one at hs AMITRIPTYLINE HCL 53983861811 No Longer Active Vishal Hui MD Active TRAZODONE HCL 100 MG TAB take 1 at bedtime TRAZODONE HCL 52467354941 No Longer Active Vishal Hui MD Active VYVANSE 40 MG CAPS 1 daily, LISDEXAMFETAMINE DIMESYLATE 12743179205 No Longer Active Vishal Hui MD Active IBUPROFEN 600 MG TAB 1 po TID PRN IBUPROFEN 93044306518 No Longer Active Vishal Hui MD Active PROZAC 20 MG CAP Take one by mouth daily FLUOXETINE HCL 55896446915 No Longer Active Vishal Hui MD Active ZOFRAN 4 MG TABS 1 po q6hr PRN Nausea ONDANSETRON HCL Active Vishal Hui MD Active BACTRIM DS 800-160 MG TABS 1 pill by mouth twice daily SULFAMETHOXAZOLE-TRIMETHOPRIM 22008371040 No Longer Active Sahara Rodriguez MD PhD Active DIFLUCAN 150 MG TAB 1 tablet by mouth daily FLUCONAZOLE 98633305888 No Longer Active Vishal Hui MD Active TIZANIDINE HCL 4 MG TABS 1 po q6hr PRN Muscle Spasm/Back Pain TIZANIDINE HCL 78249515792 Active Vishal Hui MD Active CLINDAMYCIN HCL 150 MG CAPS 1 four times a day CLINDAMYCIN HCL 96397214343 No Longer Active Neeraj Collins MD Active KEFLEX 500 MG ORAL CAPS 1 cap QID by mouth CEPHALEXIN 12399128421 No Longer Active Neeraj Collins MD Active DIFLUCAN 150 MG TABS 1 pill every other day x 2 doses FLUCONAZOLE 78988437301 No Longer Active Sahara Rodriguez MD PhD Active MELATONIN 3 MG CAPS 2 po q hs MELATONIN 79742440582 No Longer Active Sahara Rodriguez MD PhD Active MULTIVITAMINS CAPS Take one by mouth daily MULTIPLE VITAMIN 24968565519 No Longer Active Sahara Rodriguez MD PhD Active BACTRIM DS 800-160 MG TAB 1 tab by mouth twice daily TRIMETHOPRIM-SULFAMETHOXAZOLE 85941632021 No Longer Active Sahara Rodriguez MD PhD Active [facility] PROBIOTIC ORAL CHEW 2 daily po PROBIOTIC PRODUCT 10312365754 No Longer Active Sahara Rodriguez MD PhD Active BACTRIM DS 800-160 MG TABS 1 po BID x 7 days SULFAMETHOXAZOLE-TRIMETHOPRIM 47445032107 No Longer Active Vishal Hui MD Active CHANTIX STARTING MONTH EARNEST 0.5 MG X 11 & 1 MG X 42 TABS 0.5mg daily for 3 days , then 0.5mg BID for 4 days, then 1mg BID VARENICLINE TARTRATE 78902069434 No Longer Active TAMARA Gray Active VERAPAMIL HCL CR 120 MG TAB CR 1 po bid VERAPAMIL HCL 56195779217 No Longer Active Vishal Hui MD Active METOPROLOL SUCCINATE 50 MG TB24 1 tablet by mouth daily METOPROLOL SUCCINATE 92207377355 No Longer Active Vishal Hui MD Active SAPHRIS 10 MG SUBL 1 tab po bid ASENAPINE MALEATE 10247658301 No Longer Active Vishal Hui MD Active LISINOPRIL 20 MG TABS 1 tab po qd LISINOPRIL 38749757172 No Longer Active Vishal Hui MD Active LATUDA 20 MG TABS Take one by mouth daily LURASIDONE HCL 84206304489 No Longer Active Vishal Hui MD Active TRAZODONE HCL 50 MG TABS 1/2 tab po qd prn for anxiety TRAZODONE HCL 01051883196 No Longer Active Vishal Hui MD Active OMEPRAZOLE 20 MG TBEC 1 po q a.m. 30min prior to first food intake OMEPRAZOLE 75441581176 Active Vishal Hui MD Active RANITIDINE HCL 150 MG CAPS 1 twice a day RANITIDINE HCL 93948122793 Active Luigi Martínez APRN Active LINZESS 290 MCG CAPS Take one by mouth daily LINACLOTIDE 68475857668 No Longer Active Vishal Hui MD Active SAPHRIS 5 MG SUBL 1 tab po qd ASENAPINE MALEATE 33678552795 No Longer Active Vishal Hui MD Active ZALEPLON 10 MG CAPS 1 cap po every other night ZALEPLON 80224635697 No Longer Active Vishal Hui MD Active LYRICA 50 MG CAPS 1 tab po TID PREGABALIN 34985799039 No Longer Active Vishal Hui MD Active LORATADINE 10 MG TABS 1 tab po qd LORATADINE 85393698573 No Longer Active Vishal Hui MD Active VERAPAMIL HCL ER 180 MG CR-TABS 1 tab po bid VERAPAMIL HCL 60135806655 No Longer Active Vishal Hui MD Active MIRALAX POWD 1 capfull once daily POLYETHYLENE GLYCOL 3350 48103069295 No Longer Active Vishal Hui MD Active PREDNISONE 20 MG TABS 1 tab po qd PREDNISONE 18477635323 No Longer Active Renzo Thornton DO Active LEVOFLOXACIN 500 MG TABS 1 tab po qd LEVOFLOXACIN 98193008943 No Longer Active Renzo Thornton DO Active BUSPIRONE HCL 15 MG TABS 1 tab po TID BUSPIRONE HCL 51982905015 No Longer Active Renzo Thornton DO Active BENZTROPINE MESYLATE 1 MG TABS 1 tab po qd BENZTROPINE MESYLATE 29054612323 No Longer Active Renzo Thornton DO Active ATENOLOL 25 MG TABS 1 tab po qd ATENOLOL 68354562048 No Longer Active Renzo Thornton DO Active ESCITALOPRAM OXALATE 20 MG TABS 1 tab po qd ESCITALOPRAM OXALATE 64748080156 No Longer Active Renzo Thornton DO Active ADVAIR DISKUS 250-50 MCG/DOSE AEPB 1 puff BID FLUTICASONE-SALMETEROL 57788273591 No Longer Active Renzo Thornton DO Active PREDNISONE 20 MG TAB 2 tabs daily for 3 days, 1 tab daily for 3 days, 1/2 tab daily for 2 days PREDNISONE 59926409166 No Longer Active Vishal Hui MD Active CEFDINIR 300 MG CAPS by mouth twice a day CEFDINIR 47134587379 No Longer Active Vishal Hui MD Active LANSOPRAZOLE 30 MG CPDR 1 cap po qd LANSOPRAZOLE 50379407044 No Longer Active Vishal Hui MD Active BACLOFEN 20 MG TABS 1 tab po tid BACLOFEN 62765289851 No Longer Active Vishal Hui MD Active ADVAIR DISKUS 250-50 MCG/DOSE AEPB 1 puff BID ADVAIR DISKUS 250-50 MCG/DOSE AEPB FLUTICASONE-SALMETEROL Inactive ESCITALOPRAM OXALATE 20 MG TABS 1 tab po qd ESCITALOPRAM OXALATE 20 MG TABS 205644 ESCITALOPRAM OXALATE Inactive ATENOLOL 25 MG TABS 1 tab po qd ATENOLOL 25 MG TABS 567412 ATENOLOL Inactive BENZTROPINE MESYLATE 1 MG TABS 1 tab po qd BENZTROPINE MESYLATE 1 MG TABS 111538 BENZTROPINE MESYLATE Inactive BUSPIRONE HCL 15 MG TABS 1 tab po TID BUSPIRONE HCL 15 MG TABS 049783 BUSPIRONE HCL Inactive LEVOFLOXACIN 500 MG TABS 1 tab po qd LEVOFLOXACIN 500 MG TABS 307476 LEVOFLOXACIN Inactive PREDNISONE 20 MG TABS 1 tab po qd PREDNISONE 20 MG TABS 014317 PREDNISONE Inactive MIRALAX POWD 1 capfull once daily MIRALAX POWD 768421 POLYETHYLENE GLYCOL 3350 Inactive VERAPAMIL HCL ER 180 MG CR-TABS 1 tab po bid VERAPAMIL HCL ER 180 MG CR-TABS VERAPAMIL HCL Inactive LORATADINE 10 MG TABS 1 tab po qd LORATADINE 10 MG TABS 378358 LORATADINE Inactive LYRICA 50 MG CAPS 1 tab po TID LYRICA 50 MG CAPS PREGABALIN Inactive ZALEPLON 10 MG CAPS 1 cap po every other night ZALEPLON 10 MG CAPS 907776 ZALEPLON Inactive SAPHRIS 5 MG SUBL 1 tab po qd SAPHRIS 5 MG SUBL ASENAPINE MALEATE Inactive TRAZODONE HCL 50 MG TABS 1/2 tab po qd prn for anxiety TRAZODONE HCL 50 MG TABS 947888 TRAZODONE HCL Inactive LATUDA 20 MG TABS Take one by mouth daily LATUDA 20 MG TABS LURASIDONE HCL Inactive LISINOPRIL 20 MG TABS 1 tab po qd LISINOPRIL 20 MG TABS 372033 LISINOPRIL Inactive SAPHRIS 10 MG SUBL 1 [...] twice daily BACTRIM DS 800-160 MG TAB 132181 TRIMETHOPRIM-SULFAMETHOXAZOLE Inactive MULTIVITAMINS CAPS Take one by mouth daily MULTIVITAMINS CAPS MULTIPLE VITAMIN Inactive MELATONIN 3 MG CAPS 2 po q hs MELATONIN 3 MG CAPS 19950526 MELATONIN Inactive KEFLEX 500 MG ORAL CAPS 1 cap QID by mouth KEFLEX 500 MG ORAL CAPS 597639 CEPHALEXIN Inactive CLINDAMYCIN HCL 150 MG CAPS 1 four times a day CLINDAMYCIN HCL 150 MG CAPS 170297 CLINDAMYCIN HCL Inactive DIFLUCAN 150 MG TAB 1 tablet by mouth daily DIFLUCAN 150 MG TAB 021305 FLUCONAZOLE Inactive PROZAC 20 MG CAP Take one by mouth daily PROZAC 20 MG CAP 170007 FLUOXETINE HCL Inactive IBUPROFEN 600 MG TAB 1 po TID PRN IBUPROFEN 600 MG TAB 760361 IBUPROFEN Inactive VYVANSE 40 MG CAPS 1 daily, VYVANSE 40 MG CAPS LISDEXAMFETAMINE DIMESYLATE Inactive TRAZODONE HCL 100 MG TAB take 1 at bedtime TRAZODONE HCL 100 MG TAB 295936 TRAZODONE HCL Inactive AMITRIPTYLINE HCL 100 MG TAB one at hs AMITRIPTYLINE HCL 100 MG TAB 296012 AMITRIPTYLINE HCL Inactive AMLODIPINE BESYLATE 5 MG TABS 1 tablet by mouth daily AMLODIPINE BESYLATE 5 MG TABS 885738 AMLODIPINE BESYLATE Inactive LATUDA 80 MG TABS Take one by mouth daily LATUDA 80 MG TABS LURASIDONE HCL Inactive SAPHRIS 5 MG SUBL 1 po bid SAPHRIS 5 MG SUBL ASENAPINE MALEATE Inactive PREDNISONE 20 MG TAB 2 tabs daily for 4 days, 1 tab daily for 4 days, 1/2 tab daily for 4 days PREDNISONE 20 MG TAB 938935 PREDNISONE Inactive AMBIEN 5 MG ORAL TABS 1 tab at bedtime AMBIEN 5 MG ORAL TABS 529719 ZOLPIDEM TARTRATE Inactive PROZAC 20 MG ORAL CAPS 1 tab daily PROZAC 20 MG ORAL CAPS 626063 FLUOXETINE HCL Inactive ABILIFY 15 MG ORAL TABS 1 tab daily ABILIFY 15 MG ORAL TABS 290678 ARIPIPRAZOLE Inactive METOPROLOL TARTRATE 50 MG TAB 1 po bid METOPROLOL TARTRATE 50 MG TAB 609602 METOPROLOL TARTRATE Inactive TRAMADOL HCL 50 MG TABS 1-2 po TID PRN Pain TRAMADOL HCL 50 MG TABS 249503 TRAMADOL HCL Inactive PIROXICAM 20 MG CAPS 1 cap po qd PRN Pain PIROXICAM 20 MG CAPS 077370 PIROXICAM Inactive MINIPRESS 2 MG CAPS 4 cap po at night MINIPRESS 2 MG CAPS 056944 PRAZOSIN HCL Inactive MIRALAX PACK 1 po qd PRN Constipation MIRALAX PACK 413120 POLYETHYLENE GLYCOL 3350 Inactive METOPROLOL TARTRATE 25 MG ORAL TABS 1/2 tablet twice daily for heart rate and blood pressure METOPROLOL TARTRATE 25 MG ORAL TABS 480122 METOPROLOL TARTRATE Inactive VALIUM 5 MG TAB Take 1-2 tablets daily VALIUM 5 MG TAB 847538 DIAZEPAM Inactive FLAGYL 500 MG TAB 1 tablet by mouth bid FLAGYL 500 MG TAB 843265 METRONIDAZOLE Inactive DICLOFENAC POTASSIUM TABS Take 1 tablet twice a day (pt. is not sure of the dose.) DICLOFENAC POTASSIUM TABS DICLOFENAC POTASSIUM TABS Inactive CEFDINIR 300 MG CAPS by mouth twice a day CEFDINIR 300 MG CAPS 459191 CEFDINIR Inactive PREDNISONE 20 MG TAB 2 tabs daily for 3 days, 1 tab daily for 3 days, 1/2 tab daily for 2 days PREDNISONE 20 MG TAB 641093 PREDNISONE Inactive BACTRIM DS 800-160 MG TABS 1 po BID x 7 days BACTRIM DS 800-160 MG TABS 920204 SULFAMETHOXAZOLE-TRIMETHOPRIM Inactive DIFLUCAN 150 MG TABS 1 pill every other day x 2 doses DIFLUCAN 150 MG TABS 236208 FLUCONAZOLE Inactive BACTRIM DS 800-160 MG TABS 1 pill by mouth twice daily BACTRIM DS 800-160 MG TABS 450220 SULFAMETHOXAZOLE-TRIMETHOPRIM Inactive KEFLEX 500 MG CAP 1 po TID x 10 days KEFLEX 500 MG CAP 555613 CEPHALEXIN Inactive Advance Directives Directive Description Start [...] pressure, diastolic - 8462-4 75 mm[Hg] BP mcanlly blood pressure, systolic - 8480-6 126 mm[Hg] [...] % 11.6-14.8 platelet count 394 10^3/MM^3 10*3/mm3 358-911 5018/01/11 leukocyte count, blood 13.8 10^3/MM^3 10*3/mm3 4.6-10.2 [...] Panel - Chemistry sodium, serum 139 mmol/L 349-214 2585/12/03 carbon dioxide, venous blood 28.5 mmol/L 21.0-32.0 [...] 5.5 % 4.3-6.0 cholesterol, serum 159 mg/dL 416-034 2643/12/03 triglyceride, serum, fasting 118 mg/dL 30-200 HDL [...] Panel - Chemistry sodium, serum 139 mmol/L 694-410 0904/12/22 carbon dioxide, venous blood 26.8 mmol/L 21.0-32.0 potassium, serum 4.2 mmol/L 3.5-5.2 chloride, serum 103 mmol/L 98-107 blood glucose 115 mg/dL 65-110 urea nitrogen, blood 20 mg/dL 7-18 creatinine, serum 0.90 mg/dL 0.55-1.30 alanine aminotransferase (SGPT), serum 38 U/L 12-78 aspartate aminotransferase (SGOT), serum 19 U/L 15-37 calcium, serum 8.6 mg/dL 8.5-10.1 bilirubin, serum, total 0.30 mg/dL 0.00-1.00 sodium, serum 139 mmol/L 339-049 5666/01/11 carbon dioxide, venous blood 26.6 mmol/L 21.0-32.0 potassium, serum 4.1 mmol/L 3.5-5.2 chloride, serum 100 mmol/L 98-107 blood glucose 86 mg/dL 65-110 urea nitrogen, blood 16 mg/dL 7-18 creatinine, serum 1.00 mg/dL 0.55-1.30 alanine aminotransferase (SGPT), serum 48 U/L - aspartate aminotransferase (SGOT), serum 17 U/L 15- calcium, serum 9.1 mg/dL 8.5-10.1 bilirubin, serum, total 0.40 mg/dL 0.00-1.00 sodium, serum 142 mmol/L 386-517 1187/06/08 carbon dioxide, venous blood 27.6 mmol/L 21.0-32.0 potassium, serum 4.0 mmol/L 3.5-5.2 chloride, serum 105 mmol/L 98-107 blood glucose 95 mg/dL 65-110 urea nitrogen, blood 8 mg/dL 7-18 creatinine, serum 0.75 mg/dL 0.55-1.30 alanine aminotransferase (SGPT), serum 49 U/L aspartate aminotransferase (SGOT), serum 28 U/L - calcium, serum 9.4 mg/dL 8.5-10.1 bilirubin, serum, total 0.30 mg/dL 0.00-1.00 sodium, serum 140 mmol/L 168-379 6238/08/08 carbon dioxide, venous blood 33.7 mmol/L 21.0-32.0 potassium, serum 5.0 mmol/L 3.5-5.2 chloride, serum 103 mmol/L 98-107 blood glucose 80 mg/dL 65-110 urea nitrogen, blood 13 mg/dL 7-18 creatinine, serum 0.88 mg/dL 0.55-1.30 alanine aminotransferase (SGPT), serum 54 U/L aspartate aminotransferase (SGOT), serum 29 U/L - calcium, serum 9.7 mg/dL 8.5-10.1 bilirubin, serum, total 0.30 mg/dL 0.00-1.00 Lab Report: Comp. Metabolic Panel, Erythrocyte Sed Rate - Chemistry sodium, serum 139 mmol/L 484-564 1844/12/11 carbon dioxide, venous blood 25.4 mmol/L 21.0-32.0 [...] mg/dL Encounters Code Encounter Date Provider Facility CPT-51474 Level 3 Est. Patient 11:36:17 CDT Ahmet Carbajal MD [facility] CPT-84411 Level 3 Est. Patient 13:29:16 CDT Vishal Hui MD [facility] CPT-01786 Level 3 Est. Patient 14:27:52 CDT Neeraj Collins MD [facility] CPT-00210 Level 3 Est. Patient 08:56:03 CDT Luigi Martínez [facility] CPT-04362 Level 4 Est. Patient 12:11:48 CDT Fabiola Johnson [facility] CPT-28163 Level 3 New Patient 16:53:37 CDT Albert Caldera MD [facility] CPT-47410 Level 3 Est. Patient 11:25:49 CDT Renzo Thornton DO [facility] CPT-80815 Level 3 Est. Patient 15:22:01 CDT Ahmet Carbajal MD [facility] CPT-39784 Level 4 Est. Patient 09:00:51 MICROSTRATEGY REPORTS DEVELOPER Vishal Hui MD [facility] CPT-24308 Level 3 Est. Patient 11:37:33 MICROSTRATEGY REPORTS DEVELOPER Vishal Hui MD [facility] CPT-56679 Level 3 Est. Patient 08:41:09 MICROSTRATEGY REPORTS DEVELOPER Vishal Hui MD [facility] CPT-47954 Level 4 Est. Patient 10:19:35 MICROSTRATEGY REPORTS DEVELOPER Vishal Hui MD [facility] CPT-37957 Level 3 Est. Patient 13:35:45 CDT Vishal Hui MD [facility] CPT-74935 Level 4 Est. Patient 10:08:37 CDT Vishal Hui MD [facility] CPT-81834 Level 3 Est. Patient 11:22:10 CDT Vishal Hui MD [facility] CPT-72862 Level 3 Est. Patient 11:03:32 CDT Sahara Rodriguez MD [facility]-35175 Level 3 Est. Patient 09:41:35 CDT Vishal Hui MD [facility] CPT-16329 Level 3 Est. Patient 12:00:41 CDT Neeraj Collins MD [facility] CPT-18192 Level 3 Est. Patient 09:16:24 CDT Vishal Hui MD [facility] CPT-43726 Level 4 Est. Patient 13:59:09 CDT Neeraj Collins MD [facility] CPT-89593 Level 3 Est. Patient 15:19:43 CDT Renzo Thornton DO [facility] CPT-99975 Level 3 Est. Patient 18:10:26 CDT Sahara Rodriguez MD [facility] CPT-63442 Level 3 Est. Patient 14:49:50 CDT Vishal Hui MD [facility] CPT-32259 Level 4 Est. Patient 18:41:46 CDT Neeraj Collins MD [facility] CPT-41799 Level 4 Est. Patient 09:18:38 MICROSTRATEGY REPORTS DEVELOPER Vishal Hui MD [facility] CPT-09618 Level 3 Est. Patient 14:43:55 MICROSTRATEGY REPORTS DEVELOPER Vishal Hui MD [facility] CPT-75150 Level 3 Est. Patient 15:26:33 MICROSTRATEGY REPORTS DEVELOPER Sahara Rodriguez MD PhD [facility] CPT-07931 Level 3 Est. Patient 10:32:14 MICROSTRATEGY REPORTS DEVELOPER Vishal Hui MD [facility] CPT-35928 Level 3 Est. Patient 15:12:52 MICROSTRATEGY REPORTS DEVELOPER Vishal Hui MD [facility] CPT-89281 Level 4 Est. Patient 09:19:27 CDT Vishal Hui MD [facility] CPT-16062 Level 3 Est. Patient 15:53:00 CDT Renzo Thornton [facility] CPT-87906 Level 3 Est. Patient 15:50:30 CDT Renzo Thornton [facility] CPT-79692 Level 3 Est. Patient 16:55:24 CDT Vishal Hui MD [facility] Procedures Code Procedure Name Date Entry Date Standard Description CPT-29573 Abx/Therapy Injection 13:29:56 CDT CPT-56908 Abx/Therapy Injection 08:36:16 CDT CPT-44435 Wet Mount - LAB USE ONLY 17:44:58 CDT CPT-63687 UA w micro - LAB USE ONLY 17:44:58 CDT CPT-97025 CMP - LAB USE ONLY 17:44:58 CDT CPT-32886 Venipuncture Draw Fee 17:44:58 CDT CPT-21439 Cervical Min 4V - XRAY USE ONLY 09:01:40 CDT CPT-12784 Chest 2V Frontal and Lat - XRAY USE ONLY 11:06:31 CDT CPT-95697 EKG Trac and Interp - XRAY USE ONLY 11:31:43 CDT 08/26 CPT-J3420 Vitamin B12 1000mcg (Cyanocobalamin) 08:10:26 MICROSTRATEGY REPORTS DEVELOPER 04/12 CPT-88479 Abx/Therapy Injection 08:10:26 MICROSTRATEGY REPORTS DEVELOPER CPT-G0438 Initial Annual Wellness Exam 19:01:01 MICROSTRATEGY REPORTS DEVELOPER CPT-J3420 Vitamin B12 1000mcg (Cyanocobalamin) 16:57:46 CDT 08/14 CPT-54799 Recombivax HB Injection Suspension 5 MCG/0.5ML 08:37:50 MICROSTRATEGY REPORTS DEVELOPER CPT-09899 Immunization Single Admin 08:37:50 MICROSTRATEGY REPORTS DEVELOPER CPT-J3420 Vitamin B12 1000mcg (Cyanocobalamin) 08:32:16 MICROSTRATEGY REPORTS DEVELOPER 03/11 CPT-68559 Abx/Therapy Injection 08:32:16 MICROSTRATEGY REPORTS DEVELOPER CPT-74764 Chest 2V Frontal and Lat 11:46:38 MICROSTRATEGY REPORTS DEVELOPER CPT-07842 Venipuncture Draw Fee 09:12:45 MICROSTRATEGY REPORTS DEVELOPER CPT-J3420 Vitamin B12 1000mcg (Cyanocobalamin) 08:50:15 MICROSTRATEGY REPORTS DEVELOPER 02/08 CPT-06266 Abx/Therapy Injection 08:50:15 MICROSTRATEGY REPORTS DEVELOPER CPT-Cryo Cryotherapy 10:19:35 MICROSTRATEGY REPORTS DEVELOPER CPT-000 Give Appropriate Flu Vaccine 09:22:16 CDT CPT-J3420 Vitamin B12 1000mcg (Cyanocobalamin) 19:08:57 CDT 01/11 CPT-64794 Abx/Therapy Injection 19:08:57 CDT CPT-J3420 Vitamin B12 1000mcg (Cyanocobalamin) 08:19:08 CDT 12/11 CPT-84199 Abx/Therapy Injection 08:19:08 CDT CPT-J3420 Vitamin B12 1000mcg (Cyanocobalamin) 14:48:00 CDT 11/09 CPT-99206 Abx/Therapy Injection 14:47:59 CDT CPT-J3420 Vitamin B12 1000mcg (Cyanocobalamin) 08:34:04 CDT 10/09 CPT-89458 Abx/Therapy Injection 08:34:04 CDT CPT-J3420 Vitamin B12 1000mcg (Cyanocobalamin) 09:18:52 CDT 09/11 CPT-27843 Abx/Therapy Injection 09:18:52 CDT CPT-J3420 Vitamin B12 1000mcg (Cyanocobalamin) 08:35:44 CDT 09/04 CPT-01932 Abx/Therapy Injection 08:35:44 CDT CPT-94781 Immunization Single Admin 11:07:16 CDT CPT-33329 Hepatitis B adult IM 11:07:16 CDT CPT-J3420 Vitamin B12 1000mcg (Cyanocobalamin) 11:00:49 CDT 08/28 CPT-J1040 Depo Medrol 80 mg (Methyl Prednisolone Acetate) 11:00: 49 CDT CPT-12506 Abx/Therapy Injection 11:00:49 CDT CPT-J1040 Depo Medrol 80 mg (Methyl Prednisolone Acetate) 09:16: 23 CDT CPT-J3420 Vitamin B12 1000mcg (Cyanocobalamin) 08:27:05 CDT 08/20 CPT-93687 Abx/Therapy Injection 08:27:05 CDT CPT-84658 Recombivax HB Injection Suspension 5 MCG/0.5ML 10:00:41 CDT CPT-88467 Administration single or combination vaccine inc oral 10 :00:41 CDT CPT-83606 Sono transvag pelvis non OB uterus ovaries cervix 16:36: 57 CDT CPT-04591 LS spine comp w obliq 09:50:55 MICROSTRATEGY REPORTS DEVELOPER CPT-14480 Abd compl w upright 09:50:55 MICROSTRATEGY REPORTS DEVELOPER CPT-J1100 Decadron 4mg (Dexamethasone) 15:51:24 MICROSTRATEGY REPORTS DEVELOPER CPT-J1030 Depo Medrol 40 mg (Methyl Prednisolone Acetate) 15:51: 24 MICROSTRATEGY REPORTS DEVELOPER CPT-72956 Abx/Therapy Injection 15:51:24 MICROSTRATEGY REPORTS DEVELOPER CPT-J1100 Decadron 4mg (Dexamethasone) 15:26:33 MICROSTRATEGY REPORTS DEVELOPER CPT-J1030 Depo Medrol 40 mg (Methyl Prednisolone Acetate) 15:26: 33 MICROSTRATEGY REPORTS DEVELOPER CPT-73284 Sono retroperitoneal complete kidneys and bladder 17:15: 30 CDT CPT-24778 Abd compl w upright 16:09:25 CDT CPT-J1100 Decadron 8mg (Dexamethasone) 17:07:57 CDT CPT-16473 Abx/Therapy Injection 17:07:57 CDT CPT-J1100 Decadron 8mg (Dexamethasone) 16:55:24 CDT CPT-86356 Chest 2V Frontal and Lat 16:32:44 CDT
--- OUTSIDE RECORDS SUMMARY | 2016-11-04 14:17 | XMS REPORT | Clinical Summary ---
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 V72.31 Active Suzan Boo [...] MD Health screening ICD-V70.0 Inactive Suzan Boo EQUIPMENT OPERATOR/LABORER Sinus tachycardia ICD-427.89 Inactive Suzan Boo EQUIPMENT OPERATOR/LABORER Smoker/tobacco use disorder-smoking cessation discussed ICD-305.1 Inactive [...] MCG ORAL CAPS 1 tab BID LUBIPROSTONE 99951329940 Active Lynda Madl TIMBER ROBBER Active DIFLUCAN 150 MG TABS 1 by mouth for yeast FLUCONAZOLE 30274484353 Active Suzan Boo APRN Active LACTULOSE 10 GM/15ML ORAL SOLN 30mL oral BID for IBS-C LACTULOSE 38638210509 Active Suzan Boo APRN Active BACTRIM DS 800-160 MG TABS 1 twice a day SULFAMETHOXAZOLE- TRIMETHOPRIM 72110411197 Active Lynda Ninoska BHAKTAN Active MUPIROCIN 2 % OINT apply twice a day MUPIROCIN 14092341336 Active Suzan Boo APRN Active TESSALON PERLES 100 MG CAPS 1 three times a day as needed for cough BENZONATATE 55507415087 No Longer Active Suzan Boo APRN Active BACTRIM DS 800-160 MG TABS 1 twice a day SULFAMETHOXAZOLE-TRIMETHOPRIM 28020447264 No Longer Active Suzan Boo APRN Active DIFLUCAN 150 MG TABS 1 by mouth for yeast FLUCONAZOLE 12891990095 No Longer Active Suzan Boo APRN Active EQ NICOTINE 21 MG/24HR TRANS PT24 Apply daily to stop smoking NICOTINE 75570663641 No Longer Active Suzan Boo APRN Active PREDNISONE 10 MG TABS 2 daily for 5 days then 1 daily for 5 days PREDNISONE 49900358999 No Longer Active Suzan Boo APRN Active LEVAQUIN 500 MG TABS 1 daily for infection LEVOFLOXACIN 41398771560 No Longer Active Suzan Boo APRN Active TROPICAMIDE 0.5 % OPHTH SOLN 1 drop PRN eye spasms TROPICAMIDE 73478054219 No Longer Active Suzan Boo APRN Active PREDNISONE 20 MG TAB 1 tablet daily x 4 days PREDNISONE 77718883038 No Longer Active Suzan Boo APRN Active ACETAMINOPHEN-CODEINE 120-12 MG/5ML SOLN 5 ml by mouth every 4-6 hours if needed for cough ACETAMINOPHEN-CODEINE 49880803034 No Longer Active Suzan Boo APRN Active KEFLEX 500 MG CAP 1 po qid CEPHALEXIN 09688065658 No Longer Active Suzan Boo APRN Active FLOVENT HFA 110 MCG/ACT AERO 2 puffs inhaled b.i.d. FLUTICASONE PROPIONATE HFA 56032484387 Active Renzo Thornton DO Active RISPERDAL 4 MG ORAL TABS 1 tab at bedtime RISPERIDONE 32732357453 Active Samantha Rothman RMA Active ZOFRAN 4 MG TABS 1 po q6hr PRN Nausea ONDANSETRON HCL No Longer Active Suzan Boo APRN Active FLUTICASONE PROPIONATE 50 MCG/ACT SUSP 2 sprays each nostril daily before bed. FLUTICASONE PROPIONATE 33817234820 No Longer Active Suzan Boo APRN Active ASPIRIN 325 MG ORAL TABS 1 tab q.d ASPIRIN 21889528678 No Longer Active Suzan Boo APRN Active HALOPERIDOL 10 MG ORAL TABS 1 tab q.d HALOPERIDOL 51165166261 No Longer Active Suzan Boo APRN Active GUAIFENESIN-CODEINE 100-10 MG/5ML SYRP 5ml every 4 to 6 hours as needed for cough GUAIFENESIN-CODEINE 93839173486 No Longer Active Suzan Boo APRN Active ZITHROMAX Z-EARNEST 250 MG TABS 2 today and then 1 daily for 4 days AZITHROMYCIN 50106831050 No Longer Active Suzan Boo APRN Active CLONAZEPAM 1 MG ORAL TABS 1 twice a day and an additional 1 tablet every other day as needed for pseudoseizures or anxiety CLONAZEPAM 19219034712 Active Suzan Boo APRN Active HYDROCODONE-ACETAMINOPHEN 5-325 MG ORAL TABS 1 tab two times a day HYDROCODONE-ACETAMINOPHEN 13630743884 No Longer Active Ahmet Carbajal MD Active LAMICTAL 100 MG ORAL TABS 1 tab 2 times qd. LAMOTRIGINE 78199220751 Active Ahmet Carbajla MD Active PREDNISONE 20 MG TABS 2 daily for 5 days then 1 daily for 5 days PREDNISONE 98086076018 No Longer Active Ahmet Carbajal MD Active FLUTICASONE PROPIONATE 50 MCG/ACT SUSP 1 to 2 sprays each nostril daily for allergies FLUTICASONE PROPIONATE 96110095908 Active Tila Valenzuela Active BENADRYL 25 MG CAP 4 po at bedtime for insomnia DIPHENHYDRAMINE HCL 16854163112 No Longer Active Ahmet Carbajal MD Active ADVAIR DISKUS 250-50 MCG/DOSE INH AEPB 1 puff twice a day for asthma FLUTICASONE-SALMETEROL 37064079011 No Longer Active Ahmet Carbajal MD Active KLONOPIN 1 MG ORAL TABS 1 tab po TID CLONAZEPAM 97320491546 No Longer Active Ahmet Carbajal MD Active ABILIFY MAINTENA 400 MG IM SUSR 400mg injection every 26 days ARIPIPRAZOLE 15190193630 No Longer Active Ahmet Carbajal MD Active TRAMADOL HCL 50 MG TABS 1/2-1 tab TID PRN TRAMADOL HCL 54737891784 No Longer Active Ahmet Carbajal MD Active BACTRIM DS 800-160 MG TABS 1 twice a day SULFAMETHOXAZOLE- TRIMETHOPRIM 63003372578 No Longer Active Ahmet Carbajal MD Active PROAIR HFA 108 (90 BASE) MCG/ACT AERS 2 puffs four times a day as needed 2015 ALBUTEROL SULFATE 95790533011 Active Honey Hinton EQUIPMENT OPERATOR/LABORER Active MONISTAT 7 COMBO PACK WOODROW 100 & 2 MG-% (9GM) VAG KIT 1 applicatorful per vagina q pm x 7 MICONAZOLE NITRATE 67608517048 No Longer Active Ahmet Carbajal MD Active FLAGYL 500 MG TAB 1 tablet by mouth bid METRONIDAZOLE 29394283189 No Longer Active Ahmet Carbajal MD Active OXYCODONE HCL ER 10 MG ORAL T12A 1/2 tab by mouth every 4 hours prn OXYCODONE HCL 65179260875 No Longer Active Ahmet Carbajal MD Active METHYLPREDNISOLONE 4 MG ORAL TABS po daily METHYLPREDNISOLONE 68715084354 No Longer Active Ahmet Carbajal MD Active LEVOFLOXACIN 500 MG ORAL TABS po daily LEVOFLOXACIN 34755404095 No Longer Active Ahmet Carbajal MD Active VIIBRYD 10 MG ORAL TABS Take 1 tablet once a day VILAZODONE HCL 84741951078 No Longer Active Ahmet Carbajal MD Active TOPAMAX 50 MG ORAL TABS 1 tab twice daily TOPIRAMATE 70420662442 No Longer Active Ahmet Carbajal MD Active DICLOFENAC SODIUM 50 MG TBEC 1 tablet by mouth four times daily PRN Pain 2015 DICLOFENAC SODIUM 95841864421 No Longer Active Ahmet Carbajal MD Active ADZENYS XR-ODT 6.3 MG ORAL TBED 1 tab po daily for ADHD AMPHETAMINE 47643063922 No Longer Active Ahmet Carbajal MD Active CHANTIX 1 MG TABS 1 twice a day to help quit smoking VARENICLINE TARTRATE 17686687771 No Longer Active Dipika Burgos MD Active CHANTIX STARTING MONTH EARNEST 0.5 MG X 11 & 1 MG X 42 TABS take as directed 2015 VARENICLINE TARTRATE 98349300080 No Longer Active Dipika Burgos MD Active TESSALON PERLES 100 MG CAP 1 to 2 tablets by mouth 3 times daily as needed for cough BENZONATATE 22470243985 No Longer Active Luigi Martínez APRN Active IMITREX 50 MG ORAL TABS 0.5 po x 1 PRN Headache. May repeat dose x 1 in 2 hours if needed SUMATRIPTAN SUCCINATE 33347591825 Active Ahmet Carbajal MD Active HYDROCODONE-ACETAMINOPHEN 5-325 MG TABS 1 to 2 four times a day as needed for pain use until can be seen by specialist HYDROCODONE- ACETAMINOPHEN 93969261448 No Longer Active Vishal Hui MD Active PROAIR HFA 108 (90 BASE) MCG/ACT AERS 2 puffs four times a day as needed 2015 ALBUTEROL SULFATE 19646122816 No Longer Active Vishal Hui MD Active PREDNISONE 20 MG TABS 2 daily for 5 days then 1 daily for 5 days PREDNISONE 74638040662 No Longer Active Vishal Hui MD Active ZITHROMAX Z-EARNEST 250 MG TABS 2 today and then 1 daily for 4 days AZITHROMYCIN 22198855108 No Longer Active Vishal Hui MD Active DICLOFENAC POTASSIUM TABS Take 1 tablet twice a day (pt. is not sure of the dose.) DICLOFENAC POTASSIUM TABS 46375965052 No Longer Active Vishal Hui MD Active VERAPAMIL HCL ER 120 MG ORAL CR-TABS Take 1 tablet by mouth twice a day. VERAPAMIL HCL 72503890153 Active Vishal Hui MD Active FLAGYL 500 MG TAB 1 tablet by mouth bid METRONIDAZOLE 43407617441 No Longer Active Vishal Hui MD Active VALIUM 5 MG TAB Take 1-2 tablets daily DIAZEPAM 26437914649 No Longer Active Fabiola Johnson APRN Active METOPROLOL TARTRATE 25 MG ORAL TABS 1/2 tablet twice daily for heart rate and blood pressure METOPROLOL TARTRATE 04046860132 No Longer Active Fabiola Johnson APRN Active MIRALAX ORAL POWD 17GMS DAILY IN WATER POLYETHYLENE GLYCOL 3350 89602935221 Active TAMARA Casey Active MIRALAX PACK 1 po qd PRN Constipation POLYETHYLENE GLYCOL 3350 30976879862 No Longer Active Ahmet Carbajal MD Active MINIPRESS 2 MG CAPS 4 cap po at night PRAZOSIN HCL 32314286103 No Longer Active Ahmet Carbajal MD Active PIROXICAM 20 MG CAPS 1 cap po qd PRN Pain PIROXICAM 50690981528 No Longer Active Ahmet Carbajal MD Active TRAMADOL HCL 50 MG TABS 1-2 po TID PRN Pain TRAMADOL HCL 40075341073 No Longer Active Ahmet Carbajal MD Active METOPROLOL TARTRATE 50 MG TAB 1 po bid METOPROLOL TARTRATE 44860329831 No Longer Active Ahmet Carbajal MD Active ABILIFY 15 MG ORAL TABS 1 tab daily ARIPIPRAZOLE 60950666196 No Longer Active Ahmet Carbajal MD Active PROZAC 20 MG ORAL CAPS 1 tab daily FLUOXETINE HCL 75863278852 No Longer Active Ahmet Carbajal MD Active AMBIEN 5 MG ORAL TABS 1 tab at bedtime ZOLPIDEM TARTRATE 22450421788 No Longer Active Ahmet Carbajal MD Active PREDNISONE 20 MG TAB 2 tabs daily for 4 days, 1 tab daily for 4 days, 1/2 tab daily for 4 days PREDNISONE 05458013377 No Longer Active Ahmet Carbajal MD Active KEFLEX 500 MG CAP 1 po TID x 10 days CEPHALEXIN 89917279563 No Longer Active Vishal Hui MD Active SAPHRIS 5 MG SUBL 1 po bid ASENAPINE MALEATE 77259032487 No Longer Active Jillina Frazell EQUIPMENT OPERATOR/LABORER Active LATUDA 80 MG TABS Take one by mouth daily LURASIDONE HCL 55770631716 No Longer Active Jillina Frazell EQUIPMENT OPERATOR/LABORER Active AMLODIPINE BESYLATE 5 MG TABS 1 tablet by mouth daily AMLODIPINE BESYLATE 41353758581 No Longer Active Jillina Frazell EQUIPMENT OPERATOR/LABORER Active AMITRIPTYLINE HCL 100 MG TAB one at hs AMITRIPTYLINE HCL 83586120564 No Longer Active Vishal Hui MD Active TRAZODONE HCL 100 MG TAB take 1 at bedtime TRAZODONE HCL 90663818921 No Longer Active Vishal Hui MD Active VYVANSE 40 MG CAPS 1 daily, LISDEXAMFETAMINE DIMESYLATE 04202507397 No Longer Active Vishal Hui MD Active IBUPROFEN 600 MG TAB 1 po TID PRN IBUPROFEN 45791716173 No Longer Active Vishal Hui MD Active PROZAC 20 MG CAP Take one by mouth daily FLUOXETINE HCL 82973841511 No Longer Active Vishal Hui MD Active BACTRIM DS 800-160 MG TABS 1 pill by mouth twice daily SULFAMETHOXAZOLE-TRIMETHOPRIM 23487661821 No Longer Active Sahara Rodriguez MD PhD Active DIFLUCAN 150 MG TAB 1 tablet by mouth daily FLUCONAZOLE 00628187004 No Longer Active Vishal Hui MD Active TIZANIDINE HCL 4 MG TABS 1 po q6hr PRN Muscle Spasm/Back Pain TIZANIDINE HCL 63196843765 Active TAMARA Casey Active CLINDAMYCIN HCL 150 MG CAPS 1 four times a day CLINDAMYCIN HCL 84628093078 No Longer Active Neeraj Collins MD Active KEFLEX 500 MG ORAL CAPS 1 cap QID by mouth CEPHALEXIN 95606437582 No Longer Active Neeraj Collins MD Active DIFLUCAN 150 MG TABS 1 pill every other day x 2 doses FLUCONAZOLE 64823583753 No Longer Active Sahara Rodriguez MD PhD Active MELATONIN 3 MG CAPS 2 po q hs MELATONIN 98838569275 No Longer Active Sahara Rodriguez MD PhD Active MULTIVITAMINS CAPS Take one by mouth daily MULTIPLE VITAMIN 52173054807 No Longer Active Sahara Rodriguez MD PhD Active BACTRIM DS 800-160 MG TAB 1 tab by mouth twice daily TRIMETHOPRIM-SULFAMETHOXAZOLE 89832998334 No Longer Active Sahara Rodriguez MD PhD Active [facility] PROBIOTIC ORAL CHEW 2 daily po PROBIOTIC PRODUCT 40847320984 No Longer Active Sahara Rodriguez MD PhD Active BACTRIM DS 800-160 MG TABS 1 po BID x 7 days SULFAMETHOXAZOLE-TRIMETHOPRIM 84494657866 No Longer Active Vishal Hui MD Active CHANTIX STARTING MONTH EARNEST 0.5 MG X 11 & 1 MG X 42 TABS 0.5mg daily for 3 days , then 0.5mg BID for 4 days, then 1mg BID VARENICLINE TARTRATE 42237688564 No Longer Active TAMARA Gray Active VERAPAMIL HCL CR 120 MG TAB CR 1 po bid VERAPAMIL HCL 62803767465 No Longer Active Vishal Hui MD Active METOPROLOL SUCCINATE 50 MG TB24 1 tablet by mouth daily METOPROLOL SUCCINATE 71632748633 No Longer Active Vishal Hui MD Active SAPHRIS 10 MG SUBL 1 tab po bid ASENAPINE MALEATE 19123020304 No Longer Active Vishal Hui MD Active LISINOPRIL 20 MG TABS 1 tab po qd LISINOPRIL 48688045848 No Longer Active Vishal Hui MD Active LATUDA 20 MG TABS Take one by mouth daily LURASIDONE HCL 89245551980 No Longer Active Vishal Hui MD Active TRAZODONE HCL 50 MG TABS 1/2 tab po qd prn for anxiety TRAZODONE HCL 92541703608 No Longer Active Vishal Hui MD Active OMEPRAZOLE 20 MG TBEC 1 po q a.m. 30min prior to first food intake OMEPRAZOLE 87455138232 Active TAMARA Casey Active RANITIDINE HCL 150 MG CAPS 1 twice a day RANITIDINE HCL 30834428217 Active Lynda Xiao LPN Active LINZESS 290 MCG CAPS Take one by mouth daily LINACLOTIDE 85068312488 No Longer Active Vishal Hui MD Active SAPHRIS 5 MG SUBL 1 tab po qd ASENAPINE MALEATE 38220471745 No Longer Active Vishal Hui MD Active ZALEPLON 10 MG CAPS 1 cap po every other night ZALEPLON 59750447864 No Longer Active Vishal Hui MD Active LYRICA 50 MG CAPS 1 tab po TID PREGABALIN 21781728593 No Longer Active Vishal Hui MD Active LORATADINE 10 MG TABS 1 tab po qd LORATADINE 79394134090 No Longer Active Vishal Hui MD Active VERAPAMIL HCL ER 180 MG CR-TABS 1 tab po bid VERAPAMIL HCL 77556941749 No Longer Active Vishal Hui MD Active MIRALAX POWD 1 capfull once daily POLYETHYLENE GLYCOL 3350 91751074006 No Longer Active Vishal Hui MD Active PREDNISONE 20 MG TABS 1 tab po qd PREDNISONE 90797530941 No Longer Active Renzo Thornton DO Active LEVOFLOXACIN 500 MG TABS 1 tab po qd LEVOFLOXACIN 35680681797 No Longer Active Renzo Thornton DO Active BUSPIRONE HCL 15 MG TABS 1 tab po TID BUSPIRONE HCL 14008385426 No Longer Active Renzo Thornton DO Active BENZTROPINE MESYLATE 1 MG TABS 1 tab po qd BENZTROPINE MESYLATE 24353537231 No Longer Active Renzo Thornton DO Active ATENOLOL 25 MG TABS 1 tab po qd ATENOLOL 75543528228 No Longer Active Renzo Thornton DO Active ESCITALOPRAM OXALATE 20 MG TABS 1 tab po qd ESCITALOPRAM OXALATE 03395299926 No Longer Active Renzo Thornton DO Active ADVAIR DISKUS 250-50 MCG/DOSE AEPB 1 puff BID FLUTICASONE-SALMETEROL 57355951058 No Longer Active Renzo Thornton DO Active PREDNISONE 20 MG TAB 2 tabs daily for 3 days, 1 tab daily for 3 days, 1/2 tab daily for 2 days PREDNISONE 05757159475 No Longer Active Vishal Hui MD Active CEFDINIR 300 MG CAPS by mouth twice a day CEFDINIR 98780028147 No Longer Active Vishal Hui MD Active LANSOPRAZOLE 30 MG CPDR 1 cap po qd LANSOPRAZOLE 15191071742 No Longer Active Vishal Hui MD Active BACLOFEN 20 MG TABS 1 tab po tid BACLOFEN 08284312974 No Longer Active Vishal Hui MD Active ADVAIR DISKUS 250-50 MCG/DOSE AEPB 1 puff BID ADVAIR DISKUS 250-50 MCG/DOSE AEPB FLUTICASONE-SALMETEROL Inactive ESCITALOPRAM OXALATE 20 MG TABS 1 tab po qd ESCITALOPRAM OXALATE 20 MG TABS 226020 ESCITALOPRAM OXALATE Inactive ATENOLOL 25 MG TABS 1 tab po qd ATENOLOL 25 MG TABS 334423 ATENOLOL Inactive BENZTROPINE MESYLATE 1 MG TABS 1 tab po qd BENZTROPINE MESYLATE 1 MG TABS 606438 BENZTROPINE MESYLATE Inactive BUSPIRONE HCL 15 MG TABS 1 tab po TID BUSPIRONE HCL 15 MG TABS 162147 BUSPIRONE HCL Inactive LEVOFLOXACIN 500 MG TABS 1 tab po qd LEVOFLOXACIN 500 MG TABS 548194 LEVOFLOXACIN Inactive PREDNISONE 20 MG TABS 1 tab po qd PREDNISONE 20 MG TABS 530482 PREDNISONE Inactive MIRALAX POWD 1 capfull once daily MIRALAX POWD 714024 POLYETHYLENE GLYCOL 3350 Inactive VERAPAMIL HCL ER 180 MG CR-TABS 1 tab po bid VERAPAMIL HCL ER 180 MG CR-TABS VERAPAMIL HCL Inactive LORATADINE 10 MG TABS 1 tab po qd LORATADINE 10 MG TABS 743776 LORATADINE Inactive LYRICA 50 MG CAPS 1 tab po TID LYRICA 50 MG CAPS PREGABALIN Inactive ZALEPLON 10 MG CAPS 1 cap po every other night ZALEPLON 10 MG CAPS 169214 ZALEPLON Inactive SAPHRIS 5 MG SUBL 1 tab po qd SAPHRIS 5 MG SUBL ASENAPINE MALEATE Inactive TRAZODONE HCL 50 MG TABS 1/2 tab po qd prn for anxiety TRAZODONE HCL 50 MG TABS 463430 TRAZODONE HCL Inactive LATUDA 20 MG TABS Take one by mouth daily LATUDA 20 MG TABS LURASIDONE HCL Inactive LISINOPRIL 20 MG TABS 1 tab po qd LISINOPRIL 20 MG TABS 198091 LISINOPRIL Inactive SAPHRIS 10 MG SUBL 1 [...] twice daily BACTRIM DS 800-160 MG TAB 053451 TRIMETHOPRIM-SULFAMETHOXAZOLE Inactive MULTIVITAMINS CAPS Take one by mouth daily MULTIVITAMINS CAPS MULTIPLE VITAMIN Inactive MELATONIN 3 MG CAPS 2 po q hs MELATONIN 3 MG CAPS 19950526 MELATONIN Inactive KEFLEX 500 MG ORAL CAPS 1 cap QID by mouth KEFLEX 500 MG ORAL CAPS 959650 CEPHALEXIN Inactive CLINDAMYCIN HCL 150 MG CAPS 1 four times a day CLINDAMYCIN HCL 150 MG CAPS 592575 CLINDAMYCIN HCL Inactive DIFLUCAN 150 MG TAB 1 tablet by mouth daily DIFLUCAN 150 MG TAB 423638 FLUCONAZOLE Inactive PROZAC 20 MG CAP Take one by mouth daily PROZAC 20 MG CAP 854462 FLUOXETINE HCL Inactive IBUPROFEN 600 MG TAB 1 po TID PRN IBUPROFEN 600 MG TAB 731629 IBUPROFEN Inactive VYVANSE 40 MG CAPS 1 daily, VYVANSE 40 MG CAPS LISDEXAMFETAMINE DIMESYLATE Inactive TRAZODONE HCL 100 MG TAB take 1 at bedtime TRAZODONE HCL 100 MG TAB 087779 TRAZODONE HCL Inactive AMITRIPTYLINE HCL 100 MG TAB one at hs AMITRIPTYLINE HCL 100 MG TAB 607296 AMITRIPTYLINE HCL Inactive AMLODIPINE BESYLATE 5 MG TABS 1 tablet by mouth daily AMLODIPINE BESYLATE 5 MG TABS 554598 AMLODIPINE BESYLATE Inactive LATUDA 80 MG TABS Take one by mouth daily LATUDA 80 MG TABS LURASIDONE HCL Inactive SAPHRIS 5 MG SUBL 1 po bid SAPHRIS 5 MG SUBL ASENAPINE MALEATE Inactive PREDNISONE 20 MG TAB 2 tabs daily for 4 days, 1 tab daily for 4 days, 1/2 tab daily for 4 days PREDNISONE 20 MG TAB 686016 PREDNISONE Inactive AMBIEN 5 MG ORAL TABS 1 tab at bedtime AMBIEN 5 MG ORAL TABS 439536 ZOLPIDEM TARTRATE Inactive PROZAC 20 MG ORAL CAPS 1 tab daily PROZAC 20 MG ORAL CAPS 147537 FLUOXETINE HCL Inactive ABILIFY 15 MG ORAL TABS 1 tab daily ABILIFY 15 MG ORAL TABS 407689 ARIPIPRAZOLE Inactive METOPROLOL TARTRATE 50 MG TAB 1 po bid METOPROLOL TARTRATE 50 MG TAB 545969 METOPROLOL TARTRATE Inactive TRAMADOL HCL 50 MG TABS 1-2 po TID PRN Pain TRAMADOL HCL 50 MG TABS 740847 TRAMADOL HCL Inactive PIROXICAM 20 MG CAPS 1 cap po qd PRN Pain PIROXICAM 20 MG CAPS 525538 PIROXICAM Inactive MINIPRESS 2 MG CAPS 4 cap po at night MINIPRESS 2 MG CAPS 056132 PRAZOSIN HCL Inactive MIRALAX PACK 1 po qd PRN Constipation MIRALAX PACK 487658 POLYETHYLENE GLYCOL 3350 Inactive METOPROLOL TARTRATE 25 MG ORAL TABS 1/2 tablet twice daily for heart rate and blood pressure METOPROLOL TARTRATE 25 MG ORAL TABS 763128 METOPROLOL TARTRATE Inactive VALIUM 5 MG TAB Take 1-2 tablets daily VALIUM 5 MG TAB 374892 DIAZEPAM Inactive FLAGYL 500 MG TAB 1 tablet by mouth bid FLAGYL 500 MG TAB 978747 METRONIDAZOLE Inactive DICLOFENAC POTASSIUM TABS Take 1 tablet twice a day (pt. is not sure of the dose.) DICLOFENAC POTASSIUM TABS DICLOFENAC POTASSIUM TABS Inactive ZITHROMAX Z-EARNEST 250 MG TABS 2 today and then 1 daily for 4 days ZITHROMAX Z-EARNEST 250 MG TABS 8828242 AZITHROMYCIN Inactive PREDNISONE 20 MG TABS 2 daily for 5 days then 1 daily for 5 days PREDNISONE 20 MG TABS 503290 PREDNISONE Inactive PROAIR HFA 108 (90 BASE) MCG/ACT AERS 2 puffs four times a day as needed 2015 PROAIR HFA 108 (90 BASE) MCG/ACT AERS ALBUTEROL SULFATE Inactive HYDROCODONE-ACETAMINOPHEN 5-325 MG TABS 1 to 2 four times a day as needed for pain use until can be seen by specialist HYDROCODONE- ACETAMINOPHEN 5-325 MG TABS 756269 HYDROCODONE-ACETAMINOPHEN Inactive TESSALON PERLES 100 MG CAP 1 to 2 tablets by mouth 3 times daily as needed for cough TESSALON PERLES 100 MG CAP 541598 BENZONATATE Inactive CHANTIX STARTING MONTH EARNEST 0.5 [...] Pain 2015 DICLOFENAC SODIUM 50 MG TBEC 537469 DICLOFENAC SODIUM Inactive TOPAMAX 50 MG ORAL TABS 1 tab twice daily TOPAMAX 50 MG ORAL TABS 934874 TOPIRAMATE Inactive VIIBRYD 10 MG ORAL TABS Take 1 tablet once a day VIIBRYD 10 MG ORAL TABS VILAZODONE HCL Inactive LEVOFLOXACIN 500 MG ORAL TABS po daily LEVOFLOXACIN 500 MG ORAL TABS 721818 LEVOFLOXACIN Inactive METHYLPREDNISOLONE 4 MG ORAL TABS po daily METHYLPREDNISOLONE 4 MG ORAL TABS 022719 METHYLPREDNISOLONE Inactive OXYCODONE HCL ER 10 MG ORAL T12A 1/2 tab by mouth every 4 hours prn OXYCODONE HCL ER 10 MG ORAL T12A OXYCODONE HCL Inactive FLAGYL 500 MG TAB 1 tablet by mouth bid FLAGYL 500 MG TAB 192265 METRONIDAZOLE Inactive MONISTAT 7 COMBO PACK WOODROW 100 & 2 MG-% (9GM) VAG KIT 1 applicatorful per vagina q pm x 7 MONISTAT 7 COMBO PACK WOODROW 100 & 2 MG-% (9GM) VAG KIT MICONAZOLE NITRATE Inactive BACTRIM DS 800-160 MG TABS 1 twice a day BACTRIM DS 800-160 MG TABS 652796 SULFAMETHOXAZOLE-TRIMETHOPRIM Inactive TRAMADOL HCL 50 MG TABS 1/2-1 tab TID PRN TRAMADOL HCL 50 MG TABS 707148 TRAMADOL HCL Inactive ABILIFY MAINTENA 400 MG IM SUSR 400mg injection every 26 days ABILIFY MAINTENA 400 MG IM SUSR ARIPIPRAZOLE Inactive KLONOPIN 1 MG ORAL TABS 1 tab po TID KLONOPIN 1 MG ORAL TABS 973360 CLONAZEPAM Inactive ADVAIR DISKUS 250-50 MCG/DOSE INH AEPB 1 puff twice a day for asthma ADVAIR DISKUS 250-50 MCG/DOSE INH AEPB FLUTICASONE- SALMETEROL Inactive BENADRYL 25 MG CAP 4 po at bedtime for insomnia BENADRYL 25 MG CAP DIPHENHYDRAMINE HCL Inactive PREDNISONE 20 MG TABS 2 daily for 5 days then 1 daily for 5 days PREDNISONE 20 MG TABS 066279 PREDNISONE Inactive HYDROCODONE-ACETAMINOPHEN 5-325 MG ORAL TABS 1 tab two times a day HYDROCODONE-ACETAMINOPHEN 5-325 MG ORAL TABS 447341 HYDROCODONE-ACETAMINOPHEN Inactive ZITHROMAX Z-EARNEST 250 MG TABS 2 today and then 1 daily for 4 days ZITHROMAX Z-EARNEST 250 MG TABS 3501556 AZITHROMYCIN Inactive GUAIFENESIN-CODEINE 100-10 MG/5ML SYRP 5ml every 4 to 6 hours as needed for cough GUAIFENESIN-CODEINE 100-10 MG/5ML SYRP 074638 GUAIFENESIN-CODEINE Inactive HALOPERIDOL 10 MG ORAL TABS 1 tab q.d HALOPERIDOL 10 MG ORAL TABS 701639 HALOPERIDOL Inactive ASPIRIN 325 MG ORAL TABS 1 tab q.d ASPIRIN 325 MG ORAL TABS 989571 ASPIRIN Inactive FLUTICASONE PROPIONATE 50 MCG/ACT SUSP 2 sprays each nostril daily before bed. FLUTICASONE PROPIONATE 50 MCG/ACT SUSP 2388960 FLUTICASONE PROPIONATE Inactive ZOFRAN 4 MG TABS 1 po q6hr PRN Nausea ZOFRAN 4 MG TABS 502506 ONDANSETRON HCL Inactive KEFLEX 500 MG CAP 1 po qid KEFLEX 500 MG CAP 671093 CEPHALEXIN Inactive ACETAMINOPHEN-CODEINE 120-12 MG/5ML SOLN 5 ml by mouth every 4-6 hours if needed for cough ACETAMINOPHEN-CODEINE 120-12 MG/5ML SOLN 139130 ACETAMINOPHEN-CODEINE Inactive PREDNISONE 20 MG TAB 1 tablet daily x 4 days PREDNISONE 20 MG TAB 329780 PREDNISONE Inactive TROPICAMIDE 0.5 % OPHTH SOLN 1 drop PRN eye spasms TROPICAMIDE 0.5 % OPHTH SOLN 468960 TROPICAMIDE Inactive LEVAQUIN 500 MG TABS 1 daily for infection LEVAQUIN 500 MG TABS 341859 LEVOFLOXACIN Inactive PREDNISONE 10 MG TABS 2 daily for 5 days then 1 daily for 5 days PREDNISONE 10 MG TABS 323079 PREDNISONE Inactive EQ NICOTINE 21 MG/24HR TRANS [...] for 2 days PREDNISONE 20 MG TAB 858211 PREDNISONE Inactive BACTRIM DS 800-160 MG TABS [...] x 10 days KEFLEX 500 MG CAP 957541 CEPHALEXIN Inactive Advance Directives Directive Description Start [...] % 11.0-15.0 platelet count 443 THOUSAND/UL 10*3/mm3 147-763 9414/03/01 mean platelet volume 8.2 fL 7.5-12.5 leukocyte [...] % 11.0-15.0 platelet count 349 THOUSAND/UL 10*3/mm3 036-373 4558/04/12 mean platelet volume 8.4 fL 7.5-12.5 Lab [...] 369 10^3/MM^3 10*3/mm3 142-424 Lab Report: Chlamydia/GC APTIMA/[id number] - Lab chlamydia DNA probe NOT DETECTED NOT DETECTED Lab Report: Chlamydia/GC APTIMA/[id number] - Microbiology Neisseria gonorrhoeae DNA probe NOT DETECTED NOT DETECTED Lab Report: Chlamydia/GC APTIMA/[id number], Urinalysis, Complete, with Reflex ... - Lab chlamydia DNA probe NOT DETECTED NOT DETECTED Lab Report: Chlamydia/GC APTIMA/[id number], Urinalysis, Complete, with Reflex ... - Microbiology Neisseria gonorrhoeae DNA probe NOT DETECTED NOT DETECTED Lab Report: Chlamydia/GC APTIMA/[id number], Urinalysis, Complete, with Reflex ... - Urinalysis microalbumin/total urine volume 2 mg/L Units converted. See lab report for original value. microalbumin/creatinine ratio, urine 9 MCG/MG CREAT mg/L <30 Lab Report: Comp. Metabolic Panel - Chemistry sodium, serum 140 mmol/L [phone]/08/08 carbon dioxide, venous blood 33.7 mmol/L 21.0-32.0 [...] mg/dL Encounters Code Encounter Date Provider Facility CPT-30180 Level 4 Est. Patient 10:49:34 CDT Suzan Boo [facility] CPT-56498 Level 3 Est. Patient 10:00:25 CDT [facility] [facility]34 Level 3 Est. [facility] 10:29:30 [facility] Patient 11:04:38 CDT Renzo Thornton [facility] CPT-32381 Level 3 Est. Patient 11:15:58 DEHYDRATOR TENDER Renzo Thornton [facility] CPT-22656 Level 3 Est. Patient 15:28:23 DEHYDRATOR TENDER Suzan Boo [facility] CPT-67326 Level 4 Est. Patient 10:20:54 DEHYDRATOR TENDER Suzan Boo [facility] CPT-48200 Level 3 Est. Patient 11:47:37 DEHYDRATOR TENDER Ahmet Carbajal MD [facility] CPT-11234 Level 3 Est. Patient 10:40:11 DEHYDRATOR TENDER Ahmet Carbajal MD [facility] CPT-33683 Level 3 Est. Patient 15:07:06 DEHYDRATOR TENDER Neeraj Collins MD [facility] CPT-24196 Level 4 Est. Patient 14:45:00 DEHYDRATOR TENDER Ahmet Carbajal MD [facility] CPT-06907 Level 3 Est. Patient 13:59:59 CDT Luigi Martínez [facility] CPT-23441 Level 3 Est. Patient 18:18:53 CDT Neeraj Collins MD [facility] CPT-45348 Level 3 Est. Patient 15:50:44 CDT Vishal Hui MD [facility] CPT-91330 Level 3 Est. Patient 11:36:17 CDT Ahmet Carbajal MD [facility] CPT-76665 Level 3 Est. Patient 13:29:16 CDT Vishal Hui MD [facility] CPT-42827 Level 3 Est. Patient 14:27:52 CDT Neeraj Collins MD [facility] CPT-74238 Level 3 Est. Patient 08:56:03 CDT Luigi Martínez [facility] CPT-62669 Level 4 Est. Patient 12:11:48 CDT Fabiola Johnson [facility] CPT-87006 Level 3 New Patient 16:53:37 CDT Albert Caldera MD [facility] CPT-84746 Level 3 Est. Patient 11:25:49 CDT Renzo Thornton DO [facility] CPT-21706 Level 3 Est. Patient 15:22:01 CDT Ahmet Carbajal MD [facility] CPT-31853 Level 4 Est. Patient 09:00:51 DEHYDRATOR TENDER Vishal Hui MD [facility] CPT-86564 Level 3 Est. Patient 11:37:33 DEHYDRATOR TENDER Vishal Hui MD [facility] CPT-74622 Level 3 Est. Patient 08:41:09 DEHYDRATOR TENDER Vishal Hui MD [facility] CPT-39596 Level 4 Est. Patient 10:19:35 DEHYDRATOR TENDER Vishal Hui MD [facility] CPT-90450 Level 3 Est. Patient 13:35:45 CDT Vishal Hui MD [facility] CPT-21527 Level 4 Est. Patient 10:08:37 CDT Vishal Hui MD [facility] CPT-40870 Level 3 Est. Patient 11:22:10 CDT Vishal Hui MD [facility] CPT-57845 Level 3 Est. Patient 11:03:32 CDT Sahara Rodriguez MD [facility]-56826 Level 3 Est. Patient 09:41:35 CDT Vishal Hui MD [facility] CPT-76480 Level 3 Est. Patient 12:00:41 CDT Neeraj Collins MD [facility]-06189 Level 3 Est. Patient 09:16:24 CDT Vishal Hui MD [facility] CPT-99823 Level 4 Est. Patient 13:59:09 CDT Neeraj Collins MD [facility]-23856 Level 3 Est. Patient 15:19:43 CDT Renzo Thornton DO [facility] CPT-37991 Level 3 Est. Patient 18:10:26 CDT Sahara Rodriguez MD [facility][note 3]-[id number] Level 3 Est. Patient 14:49:50 CDT Vishal Hui MD [facility] CPT-15687 Level 4 Est. Patient 18:41:46 CDT Neeraj Collins MD [facility] CPT-18815 Level 4 Est. Patient 09:18:38 DEHYDRATOR TENDER Vishal Hui MD [facility] CPT-03781 Level 3 Est. Patient 14:43:55 DEHYDRATOR TENDER Vishal Hui MD [facility] CPT-19866 Level 3 Est. Patient 15:26:33 DEHYDRATOR TENDER Sahara Rodriguez MD [facility][note 3]-[id number] Level 3 Est. Patient 10:32:14 DEHYDRATOR TENDER Vishal Hui MD [facility] CPT-19150 Level 3 Est. Patient 15:12:52 DEHYDRATOR TENDER Vishal Hui MD [facility] CPT-28678 Level 4 Est. Patient 09:19:27 CDT Vishal Hui MD [facility] CPT-45707 Level 3 Est. Patient 15:53:00 CDT Renzo Thornton [facility] CPT-04231 Level 3 Est. Patient 15:50:30 CDT Renzo Thornton [facility] CPT-99724 Level 3 Est. Patient 16:55:24 CDT Vishal Hui MD [facility] Procedures Code Procedure Name Date Entry Date Standard Description CPT-25026 Venipuncture Draw Fee 08:41:12 CDT CPT-93169 Abd compl w upright - XRAY USE ONLY 10:27:59 CDT 06/28 CPT-55750 Smoking Cessation counseling 11:15:58 DEHYDRATOR TENDER CPT-G0439 [facility] Annual Wellness Exam 09:30:58 DEHYDRATOR TENDER CPT-66636 TSH - LAB USE ONLY 08:50:26 DEHYDRATOR TENDER CPT-95435 CBC - LAB USE ONLY 08:50:26 DEHYDRATOR TENDER CPT-96793 Venipuncture Draw Fee 08:50:26 DEHYDRATOR TENDER CPT-47069 Abx/Therapy Injection 17:34:30 DEHYDRATOR TENDER CPT-28555 Nexplanon Removal with Reinsertion 14:09:32 CDT CPT-J7307 Nexplanon (Implant) 14:09:32 CDT CPT-OV Office Visit 14:09:32 CDT CPT-11401 UA w micro - LAB USE ONLY 16:21:13 CDT CPT-64593 Wet Mount - LAB USE ONLY 16:21:13 CDT CPT-20640 First Vx - Ix admin for Medicare patients 14:37:47 CDT CPT-67275 Fluzone Preservative Free Intramuscular Suspension 14:37 :47 CDT CPT-69596 Abx/Therapy Injection 13:54:22 CDT CPT-53657 Abx/Therapy Injection 08:47:09 CDT CPT-56710 Abx/Therapy Injection 13:29:56 CDT CPT-95065 Abx/Therapy Injection 08:36:16 CDT CPT-96742 Wet [place] - LAB USE ONLY 17:44:58 CDT CPT-57931 UA w micro - LAB USE ONLY 17:44:58 CDT CPT-08201 CMP - LAB USE ONLY 17:44:58 CDT CPT-77481 Venipuncture Draw Fee 17:44:58 CDT CPT-12959 Cervical Min 4V - XRAY USE ONLY 09:01:40 CDT CPT-51237 Chest 2V Frontal and Lat - XRAY USE ONLY 11:06:31 CDT CPT-86783 EKG Trac and Interp - XRAY USE ONLY 11:31:43 CDT 08/26 CPT-J3420 Vitamin B12 1000mcg (Cyanocobalamin) 08:10:26 DEHYDRATOR TENDER 04/12 CPT-08420 Abx/Therapy Injection 08:10:26 DEHYDRATOR TENDER CPT-G0438 Initial Annual Wellness Exam 19:01:01 DEHYDRATOR TENDER CPT-J3420 Vitamin B12 1000mcg (Cyanocobalamin) 16:57:46 CDT 08/14 CPT-06729 Recombivax HB Injection Suspension 5 MCG/0.5ML 08:37:50 DEHYDRATOR TENDER CPT-31344 Immunization Single Admin 08:37:50 DEHYDRATOR TENDER CPT-J3420 Vitamin B12 1000mcg (Cyanocobalamin) 08:32:16 DEHYDRATOR TENDER 03/11 CPT-77776 Abx/Therapy Injection 08:32:16 DEHYDRATOR TENDER CPT-05141 Chest 2V Frontal and Lat 11:46:38 DEHYDRATOR TENDER CPT-20039 Venipuncture Draw Fee 09:12:45 DEHYDRATOR TENDER CPT-J3420 Vitamin B12 1000mcg (Cyanocobalamin) 08:50:15 DEHYDRATOR TENDER 02/08 CPT-48409 Abx/Therapy Injection 08:50:15 DEHYDRATOR TENDER CPT-Cryo Cryotherapy 10:19:35 DEHYDRATOR TENDER CPT-000 Give Appropriate Flu Vaccine 09:22:16 CDT CPT-J3420 Vitamin B12 1000mcg (Cyanocobalamin) 19:08:57 CDT 01/11 CPT-69736 Abx/Therapy Injection 19:08:57 CDT CPT-J3420 Vitamin B12 1000mcg (Cyanocobalamin) 08:19:08 CDT 12/11 CPT-62143 Abx/Therapy Injection 08:19:08 CDT CPT-J3420 Vitamin B12 1000mcg (Cyanocobalamin) 14:48:00 CDT 11/09 CPT-91442 Abx/Therapy Injection 14:47:59 CDT CPT-J3420 Vitamin B12 1000mcg (Cyanocobalamin) 08:34:04 CDT 10/09 CPT-39104 Abx/Therapy Injection 08:34:04 CDT CPT-J3420 Vitamin B12 1000mcg (Cyanocobalamin) 09:18:52 CDT 09/11 CPT-49721 Abx/Therapy Injection 09:18:52 CDT CPT-J3420 Vitamin B12 1000mcg (Cyanocobalamin) 08:35:44 CDT 09/04 CPT-11202 Abx/Therapy Injection 08:35:44 CDT CPT-09568 Immunization Single Admin 11:07:16 CDT CPT-84500 Hepatitis B adult IM 11:07:16 CDT CPT-J3420 Vitamin B12 1000mcg (Cyanocobalamin) 11:00:49 CDT 08/28 CPT-J1040 Depo Medrol 80 mg (Methyl Prednisolone Acetate) 11:00: 49 CDT CPT-53322 Abx/Therapy Injection 11:00:49 CDT CPT-J1040 Depo Medrol 80 mg (Methyl Prednisolone Acetate) 09:16: 23 CDT CPT-J3420 Vitamin B12 1000mcg (Cyanocobalamin) 08:27:05 CDT 08/20 CPT-64161 Abx/Therapy Injection 08:27:05 CDT CPT-63806 Recombivax HB Injection Suspension 5 MCG/0.5ML 10:00:41 CDT CPT-38902 Administration single or combination vaccine inc oral 10 :00:41 CDT CPT-48064 Sono transvag pelvis non OB uterus ovaries cervix 16:36: 57 CDT CPT-85751 LS spine comp w obliq 09:50:55 DEHYDRATOR TENDER CPT-10220 Abd compl w upright 09:50:55 DEHYDRATOR TENDER CPT-J1100 Decadron 4mg (Dexamethasone) 15:51:24 DEHYDRATOR TENDER CPT-J1030 Depo Medrol 40 mg (Methyl Prednisolone Acetate) 15:51: 24 DEHYDRATOR TENDER CPT-29380 Abx/Therapy Injection 15:51:24 DEHYDRATOR TENDER CPT-J1100 Decadron 4mg (Dexamethasone) 15:26:33 DEHYDRATOR TENDER CPT-J1030 Depo Medrol 40 mg (Methyl Prednisolone Acetate) 15:26: 33 DEHYDRATOR TENDER CPT-64940 Sono retroperitoneal complete kidneys and bladder 17:15: 30 CDT CPT-02505 Abd compl w upright 16:09:25 CDT CPT-J1100 Decadron 8mg (Dexamethasone) 17:07:57 CDT CPT-91571 Abx/Therapy Injection 17:07:57 CDT CPT-J1100 Decadron 8mg (Dexamethasone) 16:55:24 CDT CPT-02566 Chest 2V Frontal and Lat 16:32:44 CDT
--- OUTSIDE RECORDS SUMMARY | 2016-11-04 14:20 | XMS REPORT | Clinical Summary ---
Author Author Admin, [facility] Organization [facility] [email or web address] Address Unknown Phone Unavailable Allergies, Adverse Reactions, [...] Active Ahmet Carbajal MD Generalized anxiety disorder Educational Technologist well woman exam V72.31 Resolved Suzan Boo [...] fracture with routine healing Inactive Suzan Boo VICE PRESIDENT OF TALENT MANAGEMENT Bronchitis, acute ICD-466.0 Inactive Ahmet Carbajal MD Educational Technologist well woman exam ICD-V72.31 Inactive Suzan Boo VICE PRESIDENT OF TALENT MANAGEMENT Bronchitis, acute with mild bronchospasm ICD-466.0 Inactive Suzan Boo VICE PRESIDENT OF TALENT MANAGEMENT Tracheitis ICD-464.10 Inactive Suazn Boo VICE PRESIDENT OF TALENT MANAGEMENT Impetigo ICD-684 Inactive Suzan Boo VICE PRESIDENT OF TALENT MANAGEMENT Furuncle of buttock ICD-680.5 Inactive Suzan Boo VICE PRESIDENT OF TALENT MANAGEMENT Vaginal irritation ICD-623.9 Inactive Suzan Boo VICE PRESIDENT OF TALENT MANAGEMENT Scalding pain on urination ICD-788.1 Inactive Suzan Boo VICE PRESIDENT OF TALENT MANAGEMENT Abdominal pain, right upper quadrant ICD-789.01 Inactive Suzan Boo VICE PRESIDENT OF TALENT MANAGEMENT Dark urine ICD-791.9 Inactive Suzan Boo APRN Preop exam ICD-V72.84 Inactive Suzan Boo VICE PRESIDENT OF TALENT MANAGEMENT Medication List Medication Instructions Start Date Stop Date Generic Name NDC Status Provider Patient Instruction [id number] 50-325-40 MG TABS 1 to 2 four times a day as needed for headache [id number] Active Suzan Boo VICE PRESIDENT OF TALENT MANAGEMENT Active METOCLOPRAMIDE HCL 10 MG TABS 1 two times as needed for nausea and headaches METOCLOPRAMIDE HCL 21594843824 Active Suzan Boo APRN Active NYSTATIN 441540 UNIT/GM CREA apply three times a day to yeast rash NYSTATIN 28561685317 Active Suzan Boo APRN Active AMITIZA 24 MCG ORAL CAPS one capsule twice daily LUBIPROSTONE 55846691825 Active Suzan Boo APRN Active MIRALAX ORAL POWD 17GMS DAILY IN WATER POLYETHYLENE GLYCOL 3350 23809861518 No Longer Active Suzan Boo APRN Active LACTULOSE 10 GM/15ML ORAL SOLN 30mL oral BID for IBS-C LACTULOSE 57032759088 No Longer Active Suzan Boo APRN Active BACTRIM DS 800-160 MG TAB Take one (1) tablet by mouth twice a day for 5 days TRIMETHOPRIM-SULFAMETHOXAZOLE 07909671522 No Longer Active Suzan Boo APRN Active MUPIROCIN 2 % OINT apply twice a day MUPIROCIN 38433641493 No Longer Active Suzan Boo APRN Active BACTRIM DS 800-160 MG TABS 1 twice a day SULFAMETHOXAZOLE-TRIMETHOPRIM 87927014099 No Longer Active Suzan Boo APRN Active DIFLUCAN 150 MG TABS 1 by mouth for yeast FLUCONAZOLE 10517228838 No Longer Active Suzan Boo APRN Active LINZESS 290 MCG ORAL CAPS 1 tab 30 min prior to first meal each day. LINACLOTIDE 93024835557 No Longer Active Sheila Calderon MEDICAID NURSE Active AMITIZA 8 MCG ORAL CAPS 1 tab BID LUBIPROSTONE 64305561769 No Longer Active Lynda Madl MEDICAID NURSE Active TESSALON PERLES 100 MG CAPS 1 three times a day as needed for cough BENZONATATE 59449029573 No Longer Active Suzan Boo APRN Active BACTRIM DS 800-160 MG TABS 1 twice a day SULFAMETHOXAZOLE-TRIMETHOPRIM 41417692046 No Longer Active Suzan Boo APRN Active DIFLUCAN 150 MG TABS 1 by mouth for yeast FLUCONAZOLE 35606241116 No Longer Active Suzan Boo APRN Active EQ NICOTINE 21 MG/24HR TRANS PT24 Apply daily to stop smoking NICOTINE 30923969825 No Longer Active Suzan Boo APRN Active PREDNISONE 10 MG TABS 2 daily for 5 days then 1 daily for 5 days PREDNISONE 06287953799 No Longer Active Suzan Boo APRN Active LEVAQUIN 500 MG TABS 1 daily for infection LEVOFLOXACIN 34634282181 No Longer Active Suzan Boo APRN Active TROPICAMIDE 0.5 % OPHTH SOLN 1 drop PRN eye spasms TROPICAMIDE 50302759047 No Longer Active Suzan Boo APRN Active PREDNISONE 20 MG TAB 1 tablet daily x 4 days PREDNISONE 44923770054 No Longer Active Suzan Boo APRN Active ACETAMINOPHEN-CODEINE 120-12 MG/5ML SOLN 5 ml by mouth every 4-6 hours if needed for cough ACETAMINOPHEN-CODEINE 96525994205 No Longer Active Suzan Boo APRN Active KEFLEX 500 MG CAP 1 po qid CEPHALEXIN 16926825442 No Longer Active Suzan Boo APRN Active FLOVENT HFA 110 MCG/ACT AERO 2 puffs inhaled b.i.d. FLUTICASONE PROPIONATE HFA 74107679239 Active Renzo Thornton DO Active RISPERDAL 4 MG ORAL TABS 1 tab at bedtime RISPERIDONE 95893873737 Active Samantha Rothman RMA Active ZOFRAN 4 MG TABS 1 po q6hr PRN Nausea ONDANSETRON HCL No Longer Active Suzan Boo APRN Active FLUTICASONE PROPIONATE 50 MCG/ACT SUSP 2 sprays each nostril daily before bed. FLUTICASONE PROPIONATE 47642315580 No Longer Active Suzan Boo APRN Active ASPIRIN 325 MG ORAL TABS 1 tab q.d ASPIRIN 02043312247 No Longer Active Suzan Boo APRN Active HALOPERIDOL 10 MG ORAL TABS 1 tab q.d HALOPERIDOL 31727420842 No Longer Active Suzan Boo APRN Active GUAIFENESIN-CODEINE 100-10 MG/5ML SYRP 5ml every 4 to 6 hours as needed for cough GUAIFENESIN-CODEINE 81854170628 No Longer Active Suzan Boo APRN Active ZITHROMAX Z-EARNEST 250 MG TABS 2 today and then 1 daily for 4 days AZITHROMYCIN 00583209136 No Longer Active Suzan Boo APRN Active CLONAZEPAM 1 MG ORAL TABS 1 twice a day and an additional 1 tablet every other day as needed for pseudoseizures or anxiety CLONAZEPAM 66919885266 Active Suzan Boo APRN Active HYDROCODONE-ACETAMINOPHEN 5-325 MG ORAL TABS 1 tab two times a day HYDROCODONE-ACETAMINOPHEN 14992322178 No Longer Active Ahmet Carbajal MD Active LAMICTAL 100 MG ORAL TABS 1 tab 2 times qd. LAMOTRIGINE 23398661270 Active Ahmet Carbajal MD Active PREDNISONE 20 MG TABS 2 daily for 5 days then 1 daily for 5 days PREDNISONE 78791430147 No Longer Active Ahmet Carbajal MD Active FLUTICASONE PROPIONATE 50 MCG/ACT SUSP 1 to 2 sprays each nostril daily for allergies FLUTICASONE PROPIONATE 18029408515 Active Tila Valenzuela Active BENADRYL 25 MG CAP 4 po at bedtime for insomnia DIPHENHYDRAMINE HCL 89538815516 No Longer Active Ahmet Carbajal MD Active ADVAIR DISKUS 250-50 MCG/DOSE INH AEPB 1 puff twice a day for asthma FLUTICASONE-SALMETEROL 35113591167 No Longer Active Ahmet Carbajal MD Active KLONOPIN 1 MG ORAL TABS 1 tab po TID CLONAZEPAM 66202570137 No Longer Active Ahmet Carbajal MD Active ABILIFY MAINTENA 400 MG IM SUSR 400mg injection every 26 days ARIPIPRAZOLE 93483515966 No Longer Active Ahmet Carbajal MD Active TRAMADOL HCL 50 MG TABS 1/2-1 tab TID PRN TRAMADOL HCL 21060602687 No Longer Active Ahmet Carbajal MD Active BACTRIM DS 800-160 MG TABS 1 twice a day SULFAMETHOXAZOLE- TRIMETHOPRIM 34915360326 No Longer Active Ahmet Carbajal MD Active PROAIR HFA 108 (90 BASE) MCG/ACT AERS 2 puffs four times a day as needed 2015 ALBUTEROL SULFATE 12105025835 Active Honey Hinton VICE PRESIDENT OF TALENT MANAGEMENT Active MONISTAT 7 COMBO PACK WOODROW 100 & 2 MG-% (9GM) VAG KIT 1 applicatorful per vagina q pm x 7 MICONAZOLE NITRATE 85248493314 No Longer Active Ahmet Carbajal MD Active FLAGYL 500 MG TAB 1 tablet by mouth bid METRONIDAZOLE 54900725196 No Longer Active Ahmet Carbajal MD Active OXYCODONE HCL ER 10 MG ORAL T12A 1/2 tab by mouth every 4 hours prn OXYCODONE HCL 41616222731 No Longer Active Ahmet Carbajal MD Active METHYLPREDNISOLONE 4 MG ORAL TABS po daily METHYLPREDNISOLONE 40189974073 No Longer Active Ahmet Carbajal MD Active LEVOFLOXACIN 500 MG ORAL TABS po daily LEVOFLOXACIN 06340808548 No Longer Active Ahmet Carbajal MD Active VIIBRYD 10 MG ORAL TABS Take 1 tablet once a day VILAZODONE HCL 22733627217 No Longer Active Ahmet Carbajal MD Active TOPAMAX 50 MG ORAL TABS 1 tab twice daily TOPIRAMATE 79976209901 No Longer Active Ahmet Carbajal MD Active DICLOFENAC SODIUM 50 MG TBEC 1 tablet by mouth four times daily PRN Pain 2015 DICLOFENAC SODIUM 21538248381 No Longer Active Ahmet Carbajal MD Active ADZENYS XR-ODT 6.3 MG ORAL TBED 1 tab po daily for ADHD AMPHETAMINE 77640553578 No Longer Active Ahmet Carbajal MD Active CHANTIX 1 MG TABS 1 twice a day to help quit smoking VARENICLINE TARTRATE 99917944722 No Longer Active Dipika Burgos MD Active CHANTIX STARTING MONTH EARNEST 0.5 MG X 11 & 1 MG X 42 TABS take as directed 2015 VARENICLINE TARTRATE 59273915227 No Longer Active Dipika Burgos MD Active TESSALON PERLES 100 MG CAP 1 to 2 tablets by mouth 3 times daily as needed for cough BENZONATATE 06860210807 No Longer Active Luigi Martínez VICE PRESIDENT OF TALENT MANAGEMENT Active IMITREX 50 MG ORAL TABS 0.5 po x 1 PRN Headache. May repeat dose x 1 in 2 hours if needed SUMATRIPTAN SUCCINATE 17451710353 Active TAMARA Casey Active HYDROCODONE-ACETAMINOPHEN 5-325 MG TABS 1 to 2 four times a day as needed for pain use until can be seen by specialist HYDROCODONE- ACETAMINOPHEN 48587768858 No Longer Active Vishal Hui MD Active PROAIR HFA 108 (90 BASE) MCG/ACT AERS 2 puffs four times a day as needed 2015 ALBUTEROL SULFATE 65024339508 No Longer Active Vishal Hui MD Active PREDNISONE 20 MG TABS 2 daily for 5 days then 1 daily for 5 days PREDNISONE 59026831993 No Longer Active Vishal Hui MD Active ZITHROMAX Z-EARNEST 250 MG TABS 2 today and then 1 daily for 4 days AZITHROMYCIN 51579650929 No Longer Active Vishal Hui MD Active DICLOFENAC POTASSIUM TABS Take 1 tablet twice a day (pt. is not sure of the dose.) DICLOFENAC POTASSIUM TABS 34543067561 No Longer Active Vishal Hui MD Active VERAPAMIL HCL ER 120 MG ORAL CR-TABS Take 1 tablet by mouth twice a day. VERAPAMIL HCL 55689274908 Active Vishal Hui MD Active FLAGYL 500 MG TAB 1 tablet by mouth bid METRONIDAZOLE 23707260064 No Longer Active Vishal Hui MD Active VALIUM 5 MG TAB Take 1-2 tablets daily DIAZEPAM 39668853818 No Longer Active Fabiola Johnson APRN Active METOPROLOL TARTRATE 25 MG ORAL TABS 1/2 tablet twice daily for heart rate and blood pressure METOPROLOL TARTRATE 57959412436 No Longer Active Fabiola Johnson APRN Active MIRALAX PACK 1 po qd PRN Constipation POLYETHYLENE GLYCOL 3350 42280008905 No Longer Active Ahmet Carbajal MD Active MINIPRESS 2 MG CAPS 4 cap po at night PRAZOSIN HCL 03073718268 No Longer Active Ahmet Carbajal MD Active PIROXICAM 20 MG CAPS 1 cap po qd PRN Pain PIROXICAM 11109027558 No Longer Active Ahmet Carbajal MD Active TRAMADOL HCL 50 MG TABS 1-2 po TID PRN Pain TRAMADOL HCL 28351250768 No Longer Active Ahmet Carbajal MD Active METOPROLOL TARTRATE 50 MG TAB 1 po bid METOPROLOL TARTRATE 19943624138 No Longer Active Ahmet Carbajal MD Active ABILIFY 15 MG ORAL TABS 1 tab daily ARIPIPRAZOLE 29222640270 No Longer Active Ahmet Carbajal MD Active PROZAC 20 MG ORAL CAPS 1 tab daily FLUOXETINE HCL 10734482846 No Longer Active Ahmet Carbajal MD Active AMBIEN 5 MG ORAL TABS 1 tab at bedtime ZOLPIDEM TARTRATE 46209325924 No Longer Active Ahmet Carbajal MD Active PREDNISONE 20 MG TAB 2 tabs daily for 4 days, 1 tab daily for 4 days, 1/2 tab daily for 4 days PREDNISONE 49358929480 No Longer Active Ahmet Carbajal MD Active KEFLEX 500 MG CAP 1 po TID x 10 days CEPHALEXIN 15450682118 No Longer Active Vishal Hui MD Active SAPHRIS 5 MG SUBL 1 po bid ASENAPINE MALEATE 02413598004 No Longer Active Jillina Fralebron VICE PRESIDENT OF TALENT MANAGEMENT Active LATUDA 80 MG TABS Take one by mouth daily LURASIDONE HCL 72639933444 No Longer Active Jillina Frazell VICE PRESIDENT OF TALENT MANAGEMENT Active AMLODIPINE BESYLATE 5 MG TABS 1 tablet by mouth daily AMLODIPINE BESYLATE 69192816107 No Longer Active Jillina Mauricio WALTERSN Active AMITRIPTYLINE HCL 100 MG TAB one at hs AMITRIPTYLINE HCL 22549936711 No Longer Active Vishal Hui MD Active TRAZODONE HCL 100 MG TAB take 1 at bedtime TRAZODONE HCL 37965181724 No Longer Active Vishal Hui MD Active VYVANSE 40 MG CAPS 1 daily, LISDEXAMFETAMINE DIMESYLATE 37173208672 No Longer Active Vishal Hui MD Active IBUPROFEN 600 MG TAB 1 po TID PRN IBUPROFEN 65139115969 No Longer Active Vishal Hui MD Active PROZAC 20 MG CAP Take one by mouth daily FLUOXETINE HCL 50829124215 No Longer Active Vishal Hui MD Active BACTRIM DS 800-160 MG TABS 1 pill by mouth twice daily SULFAMETHOXAZOLE-TRIMETHOPRIM 04488935624 No Longer Active Sahara Rodriguez MD PhD Active DIFLUCAN 150 MG TAB 1 tablet by mouth daily FLUCONAZOLE 69658374334 No Longer Active Vishal Hui MD Active TIZANIDINE HCL 4 MG TABS 1 po q6hr PRN Muscle Spasm/Back Pain TIZANIDINE HCL 23339887227 Active TAMARA Casey Active CLINDAMYCIN HCL 150 MG CAPS 1 four times a day CLINDAMYCIN HCL 15841746191 No Longer Active Neeraj Collins MD Active KEFLEX 500 MG ORAL CAPS 1 cap QID by mouth CEPHALEXIN 03106646381 No Longer Active Neeraj Collins MD Active DIFLUCAN 150 MG TABS 1 pill every other day x 2 doses FLUCONAZOLE 43777188211 No Longer Active Sahara Rodriguez MD PhD Active MELATONIN 3 MG CAPS 2 po q hs MELATONIN 45798809577 No Longer Active Sahara Rodriguez MD PhD Active MULTIVITAMINS CAPS Take one by mouth daily MULTIPLE VITAMIN 57143971758 No Longer Active Sahara Rodriguez MD PhD Active BACTRIM DS 800-160 MG TAB 1 tab by mouth twice daily TRIMETHOPRIM-SULFAMETHOXAZOLE 86572400893 No Longer Active Sahara Rodriguez MD PhD Active [facility] PROBIOTIC ORAL CHEW 2 daily po PROBIOTIC PRODUCT 98213970445 No Longer Active Sahara Rodriguez MD PhD Active BACTRIM DS 800-160 MG TABS 1 po BID x 7 days SULFAMETHOXAZOLE-TRIMETHOPRIM 55844494872 No Longer Active Vishal Hui MD Active CHANTIX STARTING MONTH EARNEST 0.5 MG X 11 & 1 MG X 42 TABS 0.5mg daily for 3 days , then 0.5mg BID for 4 days, then 1mg BID VARENICLINE TARTRATE 93994126761 No Longer Active TAMARA Gray Active VERAPAMIL HCL CR 120 MG TAB CR 1 po bid VERAPAMIL HCL 38371211851 No Longer Active Vishal Hui MD Active METOPROLOL SUCCINATE 50 MG TB24 1 tablet by mouth daily METOPROLOL SUCCINATE 47093388366 No Longer Active Vishal Hui MD Active SAPHRIS 10 MG SUBL 1 tab po bid ASENAPINE MALEATE 00463990720 No Longer Active Vishal Hui MD Active LISINOPRIL 20 MG TABS 1 tab po qd LISINOPRIL 62557163064 No Longer Active Vishal Hui MD Active LATUDA 20 MG TABS Take one by mouth daily LURASIDONE HCL 85253433032 No Longer Active Vishal Hui MD Active TRAZODONE HCL 50 MG TABS 1/2 tab po qd prn for anxiety TRAZODONE HCL 66742406549 No Longer Active Vishal Hui MD Active OMEPRAZOLE 20 MG TBEC 1 po q a.m. 30min prior to first food intake OMEPRAZOLE 82268838600 Active TAMARA Casey Active RANITIDINE HCL 150 MG CAPS 1 twice a day RANITIDINE HCL 03513923495 Active Lynda Xiao LPN Active LINZESS 290 MCG CAPS Take one by mouth daily LINACLOTIDE 37636987260 No Longer Active Vishal Hui MD Active SAPHRIS 5 MG SUBL 1 tab po qd ASENAPINE MALEATE 34166069579 No Longer Active Vishal Hui MD Active ZALEPLON 10 MG CAPS 1 cap po every other night ZALEPLON 54597113053 No Longer Active Vishal Hui MD Active LYRICA 50 MG CAPS 1 tab po TID PREGABALIN 58181955537 No Longer Active Vishal Hui MD Active LORATADINE 10 MG TABS 1 tab po qd LORATADINE 35885941199 No Longer Active Vishal Hui MD Active VERAPAMIL HCL ER 180 MG CR-TABS 1 tab po bid VERAPAMIL HCL 19237238041 No Longer Active Vishal Hui MD Active MIRALAX POWD 1 capfull once daily POLYETHYLENE GLYCOL 3350 33674041426 No Longer Active Vishal Hui MD Active PREDNISONE 20 MG TABS 1 tab po qd PREDNISONE 37627172083 No Longer Active Renzo Thornton DO Active LEVOFLOXACIN 500 MG TABS 1 tab po qd LEVOFLOXACIN 97548542482 No Longer Active Renzo Thornton DO Active BUSPIRONE HCL 15 MG TABS 1 tab po TID BUSPIRONE HCL 74021310131 No Longer Active Renzo Thornton DO Active BENZTROPINE MESYLATE 1 MG TABS 1 tab po qd BENZTROPINE MESYLATE 89118006848 No Longer Active Renzo Thornton DO Active ATENOLOL 25 MG TABS 1 tab po qd ATENOLOL 26344709651 No Longer Active Renzo Thornton DO Active ESCITALOPRAM OXALATE 20 MG TABS 1 tab po qd ESCITALOPRAM OXALATE 24425137041 No Longer Active Renzo Thornton DO Active ADVAIR DISKUS 250-50 MCG/DOSE AEPB 1 puff BID FLUTICASONE-SALMETEROL 90163621929 No Longer Active Renzo Thornton DO Active PREDNISONE 20 MG TAB 2 tabs daily for 3 days, 1 tab daily for 3 days, 1/2 tab daily for 2 days PREDNISONE 29552721468 No Longer Active Vishal Hui MD Active CEFDINIR 300 MG CAPS by mouth twice a day CEFDINIR 68382603121 No Longer Active Vishal Hui MD Active LANSOPRAZOLE 30 MG CPDR 1 cap po qd LANSOPRAZOLE 22598471828 No Longer Active Vishal Hui MD Active BACLOFEN 20 MG TABS 1 tab po tid BACLOFEN 78176254093 No Longer Active Vishal Hui MD Active ADVAIR DISKUS 250-50 MCG/DOSE AEPB 1 puff BID ADVAIR DISKUS 250-50 MCG/DOSE AEPB FLUTICASONE-SALMETEROL Inactive ESCITALOPRAM OXALATE 20 MG TABS 1 tab po qd ESCITALOPRAM OXALATE 20 MG TABS 385740 ESCITALOPRAM OXALATE Inactive ATENOLOL 25 MG TABS 1 tab po qd ATENOLOL 25 MG TABS 412706 ATENOLOL Inactive BENZTROPINE MESYLATE 1 MG TABS 1 tab po qd BENZTROPINE MESYLATE 1 MG TABS 398553 BENZTROPINE MESYLATE Inactive BUSPIRONE HCL 15 MG TABS 1 tab po TID BUSPIRONE HCL 15 MG TABS 530190 BUSPIRONE HCL Inactive LEVOFLOXACIN 500 MG TABS 1 tab po qd LEVOFLOXACIN 500 MG TABS 391689 LEVOFLOXACIN Inactive PREDNISONE 20 MG TABS 1 tab po qd PREDNISONE 20 MG TABS 901875 PREDNISONE Inactive MIRALAX POWD 1 capfull once daily MIRALAX POWD 000601 POLYETHYLENE GLYCOL 3350 Inactive VERAPAMIL HCL ER 180 MG CR-TABS 1 tab po bid VERAPAMIL HCL ER 180 MG CR-TABS VERAPAMIL HCL Inactive LORATADINE 10 MG TABS 1 tab po qd LORATADINE 10 MG TABS 358023 LORATADINE Inactive LYRICA 50 MG CAPS 1 tab po TID LYRICA 50 MG CAPS PREGABALIN Inactive ZALEPLON 10 MG CAPS 1 cap po every other night ZALEPLON 10 MG CAPS 266094 ZALEPLON Inactive SAPHRIS 5 MG SUBL 1 tab po qd SAPHRIS 5 MG SUBL ASENAPINE MALEATE Inactive TRAZODONE HCL 50 MG TABS 1/2 tab po qd prn for anxiety TRAZODONE HCL 50 MG TABS 678846 TRAZODONE HCL Inactive LATUDA 20 MG TABS Take one by mouth daily LATUDA 20 MG TABS LURASIDONE HCL Inactive LISINOPRIL 20 MG TABS 1 tab po qd LISINOPRIL 20 MG TABS 807326 LISINOPRIL Inactive SAPHRIS 10 MG SUBL 1 [...] twice daily BACTRIM DS 800-160 MG TAB 814647 TRIMETHOPRIM-SULFAMETHOXAZOLE Inactive MULTIVITAMINS CAPS Take one by mouth daily MULTIVITAMINS CAPS MULTIPLE VITAMIN Inactive MELATONIN 3 MG CAPS 2 po q hs MELATONIN 3 MG CAPS 226261 MELATONIN Inactive KEFLEX 500 MG ORAL CAPS 1 cap QID by mouth KEFLEX 500 MG ORAL CAPS 596796 CEPHALEXIN Inactive CLINDAMYCIN HCL 150 MG CAPS 1 four times a day CLINDAMYCIN HCL 150 MG CAPS 263610 CLINDAMYCIN HCL Inactive DIFLUCAN 150 MG TAB 1 tablet by mouth daily DIFLUCAN 150 MG TAB 215806 FLUCONAZOLE Inactive PROZAC 20 MG CAP Take one by mouth daily PROZAC 20 MG CAP 670216 FLUOXETINE HCL Inactive IBUPROFEN 600 MG TAB 1 po TID PRN IBUPROFEN 600 MG TAB 160448 IBUPROFEN Inactive VYVANSE 40 MG CAPS 1 daily, VYVANSE 40 MG CAPS LISDEXAMFETAMINE DIMESYLATE Inactive TRAZODONE HCL 100 MG TAB take 1 at bedtime TRAZODONE HCL 100 MG TAB 299020 TRAZODONE HCL Inactive AMITRIPTYLINE HCL 100 MG TAB one at hs AMITRIPTYLINE HCL 100 MG TAB 946119 AMITRIPTYLINE HCL Inactive AMLODIPINE BESYLATE 5 MG TABS 1 tablet by mouth daily AMLODIPINE BESYLATE 5 MG TABS 608564 AMLODIPINE BESYLATE Inactive LATUDA 80 MG TABS Take one by mouth daily LATUDA 80 MG TABS LURASIDONE HCL Inactive SAPHRIS 5 MG SUBL 1 po bid SAPHRIS 5 MG SUBL ASENAPINE MALEATE Inactive PREDNISONE 20 MG TAB 2 tabs daily for 4 days, 1 tab daily for 4 days, 1/2 tab daily for 4 days PREDNISONE 20 MG TAB 338633 PREDNISONE Inactive AMBIEN 5 MG ORAL TABS 1 tab at bedtime AMBIEN 5 MG ORAL TABS 671990 ZOLPIDEM TARTRATE Inactive PROZAC 20 MG ORAL CAPS 1 tab daily PROZAC 20 MG ORAL CAPS 738954 FLUOXETINE HCL Inactive ABILIFY 15 MG ORAL TABS 1 tab daily ABILIFY 15 MG ORAL TABS 582327 ARIPIPRAZOLE Inactive METOPROLOL TARTRATE 50 MG TAB 1 po bid METOPROLOL TARTRATE 50 MG TAB 478427 METOPROLOL TARTRATE Inactive TRAMADOL HCL 50 MG TABS 1-2 po TID PRN Pain TRAMADOL HCL 50 MG TABS 988674 TRAMADOL HCL Inactive PIROXICAM 20 MG CAPS 1 cap po qd PRN Pain PIROXICAM 20 MG CAPS 620162 PIROXICAM Inactive MINIPRESS 2 MG CAPS 4 cap po at night MINIPRESS 2 MG CAPS 049733 PRAZOSIN HCL Inactive MIRALAX PACK 1 po qd PRN Constipation MIRALAX PACK 512378 POLYETHYLENE GLYCOL 3350 Inactive METOPROLOL TARTRATE 25 MG ORAL TABS 1/2 tablet twice daily for heart rate and blood pressure METOPROLOL TARTRATE 25 MG ORAL TABS 365717 METOPROLOL TARTRATE Inactive VALIUM 5 MG TAB Take 1-2 tablets daily VALIUM 5 MG TAB 523219 DIAZEPAM Inactive FLAGYL 500 MG TAB 1 tablet by mouth bid FLAGYL 500 MG TAB 719433 METRONIDAZOLE Inactive DICLOFENAC POTASSIUM TABS Take 1 tablet twice a day (pt. is not sure of the dose.) DICLOFENAC POTASSIUM TABS DICLOFENAC POTASSIUM TABS Inactive ZITHROMAX Z-EARNEST 250 MG TABS 2 today and then 1 daily for 4 days ZITHROMAX Z-EARNEST 250 MG TABS 7003130 AZITHROMYCIN Inactive PREDNISONE 20 MG TABS 2 daily for 5 days then 1 daily for 5 days PREDNISONE 20 MG TABS 948280 PREDNISONE Inactive PROAIR HFA 108 (90 BASE) MCG/ACT AERS 2 puffs four times a day as needed 2015 PROAIR HFA 108 (90 BASE) MCG/ACT AERS ALBUTEROL SULFATE Inactive HYDROCODONE-ACETAMINOPHEN 5-325 MG TABS 1 to 2 four times a day as needed for pain use until can be seen by specialist HYDROCODONE- ACETAMINOPHEN 5-325 MG TABS 828693 HYDROCODONE-ACETAMINOPHEN Inactive TESSALON PERLES 100 MG CAP 1 to 2 tablets by mouth 3 times daily as needed for cough TESSALON PERLES 100 MG CAP 831848 BENZONATATE Inactive CHANTIX STARTING MONTH EARNEST 0.5 [...] Pain 2015 DICLOFENAC SODIUM 50 MG TBEC 696660 DICLOFENAC SODIUM Inactive TOPAMAX 50 MG ORAL TABS 1 tab twice daily TOPAMAX 50 MG ORAL TABS 548972 TOPIRAMATE Inactive VIIBRYD 10 MG ORAL TABS Take 1 tablet once a day VIIBRYD 10 MG ORAL TABS VILAZODONE HCL Inactive LEVOFLOXACIN 500 MG ORAL TABS po daily LEVOFLOXACIN 500 MG ORAL TABS 854128 LEVOFLOXACIN Inactive METHYLPREDNISOLONE 4 MG ORAL TABS po daily METHYLPREDNISOLONE 4 MG ORAL TABS 855494 METHYLPREDNISOLONE Inactive OXYCODONE HCL ER 10 MG ORAL T12A 1/2 tab by mouth every 4 hours prn OXYCODONE HCL ER 10 MG ORAL T12A OXYCODONE HCL Inactive FLAGYL 500 MG TAB 1 tablet by mouth bid FLAGYL 500 MG TAB 405108 METRONIDAZOLE Inactive MONISTAT 7 COMBO PACK WOODROW 100 & 2 MG-% (9GM) VAG KIT 1 applicatorful per vagina q pm x 7 MONISTAT 7 COMBO PACK WOODROW 100 & 2 MG-% (9GM) VAG KIT MICONAZOLE NITRATE Inactive BACTRIM DS 800-160 MG TABS 1 twice a day BACTRIM DS 800-160 MG TABS 111754 SULFAMETHOXAZOLE-TRIMETHOPRIM Inactive TRAMADOL HCL 50 MG TABS 1/2-1 tab TID PRN TRAMADOL HCL 50 MG TABS 528344 TRAMADOL HCL Inactive ABILIFY MAINTENA 400 MG IM SUSR 400mg injection every 26 days ABILIFY MAINTENA 400 MG IM SUSR ARIPIPRAZOLE Inactive KLONOPIN 1 MG ORAL TABS 1 tab po TID KLONOPIN 1 MG ORAL TABS 264842 CLONAZEPAM Inactive ADVAIR DISKUS 250-50 MCG/DOSE INH AEPB 1 puff twice a day for asthma ADVAIR DISKUS 250-50 MCG/DOSE INH AEPB FLUTICASONE- SALMETEROL Inactive BENADRYL 25 MG CAP 4 po at bedtime for insomnia BENADRYL 25 MG CAP DIPHENHYDRAMINE HCL Inactive PREDNISONE 20 MG TABS 2 daily for 5 days then 1 daily for 5 days PREDNISONE 20 MG TABS 721394 PREDNISONE Inactive HYDROCODONE-ACETAMINOPHEN 5-325 MG ORAL TABS 1 tab two times a day HYDROCODONE-ACETAMINOPHEN 5-325 MG ORAL TABS 761595 HYDROCODONE-ACETAMINOPHEN Inactive ZITHROMAX Z-EARNEST 250 MG TABS 2 today and then 1 daily for 4 days ZITHROMAX Z-EARNEST 250 MG TABS 4829427 AZITHROMYCIN Inactive GUAIFENESIN-CODEINE 100-10 MG/5ML SYRP 5ml every 4 to 6 hours as needed for cough GUAIFENESIN-CODEINE 100-10 MG/5ML SYRP 529942 GUAIFENESIN-CODEINE Inactive HALOPERIDOL 10 MG ORAL TABS 1 tab q.d HALOPERIDOL 10 MG ORAL TABS 419575 HALOPERIDOL Inactive ASPIRIN 325 MG ORAL TABS 1 tab q.d ASPIRIN 325 MG ORAL TABS [id number] ASPIRIN Inactive FLUTICASONE PROPIONATE 50 MCG/ACT SUSP 2 sprays each nostril daily before bed. FLUTICASONE PROPIONATE 50 MCG/ACT SUSP [id number] FLUTICASONE PROPIONATE Inactive ZOFRAN 4 MG TABS 1 po q6hr PRN Nausea ZOFRAN 4 MG TABS [id number] ONDANSETRON HCL Inactive KEFLEX 500 MG CAP 1 po qid KEFLEX 500 MG CAP [id number] CEPHALEXIN Inactive ACETAMINOPHEN-CODEINE 120-12 MG/5ML SOLN 5 ml by mouth every 4-6 hours if needed for cough ACETAMINOPHEN-CODEINE 120-12 MG/5ML SOLN 131312 ACETAMINOPHEN-CODEINE Inactive PREDNISONE 20 MG TAB 1 tablet daily x 4 days PREDNISONE 20 MG TAB [id number] PREDNISONE Inactive TROPICAMIDE 0.5 % OPHTH SOLN 1 drop PRN eye spasms TROPICAMIDE 0.5 % [facility] SOLN 828769 TROPICAMIDE Inactive LEVAQUIN 500 MG TABS 1 daily for infection LEVAQUIN 500 MG TABS 175741 LEVOFLOXACIN Inactive PREDNISONE 10 MG TABS 2 daily for 5 days then 1 daily for 5 days PREDNISONE 10 MG TABS 703081 PREDNISONE Inactive EQ NICOTINE 21 MG/24HR TRANS [...] twice a day MUPIROCIN 2 % OINT 120097 MUPIROCIN Inactive BACTRIM DS 800-160 MG TAB Take one (1) tablet by mouth twice a day for 5 days BACTRIM DS 800-160 MG TAB [id number] TRIMETHOPRIM- SULFAMETHOXAZOLE Inactive LACTULOSE 10 GM/15ML ORAL SOLN 30mL oral BID for IBS-C LACTULOSE 10 GM/15ML ORAL SOLN 530284 LACTULOSE Inactive MIRALAX ORAL POWD 17GMS DAILY IN WATER MIRALAX ORAL POWD 863776 POLYETHYLENE GLYCOL 3350 Inactive CEFDINIR 300 MG CAPS by mouth twice a day CEFDINIR 300 MG CAPS 256198 CEFDINIR Inactive PREDNISONE 20 MG TAB 2 tabs daily for 3 days, 1 tab daily for 3 days, 1/2 tab daily for 2 days PREDNISONE 20 MG TAB 254408 PREDNISONE Inactive BACTRIM DS 800-160 MG TABS 1 po BID x 7 days BACTRIM DS 800-160 MG TABS 19820521 SULFAMETHOXAZOLE-TRIMETHOPRIM Inactive DIFLUCAN 150 MG TABS 1 pill every other day x 2 doses DIFLUCAN 150 MG TABS 829216 FLUCONAZOLE Inactive BACTRIM DS 800-160 MG TABS 1 pill by mouth twice daily BACTRIM DS 800-160 MG TABS 19820521 SULFAMETHOXAZOLE-TRIMETHOPRIM Inactive KEFLEX 500 MG CAP 1 po TID x 10 days KEFLEX 500 MG CAP 328008 CEPHALEXIN Inactive Advance Directives Directive Description Start [...] % 11.0-15.0 platelet count 443 THOUSAND/UL 10*3/mm3 747-415 3234/03/01 mean platelet volume 8.2 fL 7.5-12.5 leukocyte [...] % 11.0-15.0 platelet count 349 THOUSAND/UL 10*3/mm3 859-492 1677/04/12 mean platelet volume 8.4 fL 7.5-12.5 Lab Report: CBC W/DIFF, Comp. Metabolic Panel, HGBA1C, Magnesium - Chemistry sodium, serum 141 mmol/L 594-070 2791/07/24 carbon dioxide, venous blood 27.8 mmol/L 21.0-32.0 [...] 369 10^3/MM^3 10*3/mm3 142-424 Lab Report: Chlamydia/GC APTIMA/09240 - Lab chlamydia DNA probe NOT DETECTED NOT DETECTED Lab Report: Chlamydia/GC APTIMA/93176 - Microbiology Neisseria gonorrhoeae DNA probe NOT DETECTED NOT DETECTED Lab Report: Chlamydia/GC APTIMA/99701, Urinalysis, Complete, with Reflex ... - Lab chlamydia DNA probe NOT DETECTED NOT DETECTED Lab Report: Chlamydia/GC APTIMA/36443, Urinalysis, Complete, with Reflex ... - Microbiology Neisseria gonorrhoeae DNA probe NOT DETECTED NOT DETECTED Lab Report: Chlamydia/GC APTIMA/43768, Urinalysis, Complete, with Reflex ... - Urinalysis microalbumin/total urine volume 2 mg/L Units converted. See lab report for original value. microalbumin/creatinine ratio, urine 9 MCG/MG CREAT mg/L <30 Lab Report: Comp. Metabolic Panel - Chemistry sodium, serum 140 mmol/L [phone]/08/08 carbon dioxide, venous blood 33.7 mmol/L 21.0-32.0 potassium, serum 5.0 mmol/L 3.5-5.2 chloride, serum 103 mmol/L 98-107 blood glucose 80 mg/dL 65-110 urea nitrogen, blood 13 mg/dL 7-18 creatinine, serum 0.88 mg/dL 0.55-1.30 alanine aminotransferase (SGPT), serum 54 U/L 12-78 aspartate aminotransferase (SGOT), serum 29 U/L 15-37 calcium, serum 9.7 mg/dL 8.5-10.1 bilirubin, serum, total 0.30 mg/dL 0.00-1.00 sodium, serum 140 mmol/L 292-609 0359/06/28 carbon dioxide, venous blood 23.8 mmol/L 21.0-32.0 [...] 5.0-8.5 Encounters Code Encounter Date Provider Facility CPT-02692 Level 3 Est. Patient 10:53:17 CDT Suzan [facility] CPT-59165 Level 3 Est. Patient 11:08:35 CDT Suzan [facility] CPT-01426 Level 3 Est. Patient 15:55:20 CDT Suzan [facility] CPT-07380 Level 4 Est. Patient 10:49:34 CDT Suzan [facility] CPT-31050 Level 3 Est. Patient 10:00:[facility] Level 3 Est. Patient 10:29:30 CDT Suzan [facility] CPT-37544 Level 3 Est. Patient 11:04:38 CDT Renzo Barajas [facility] CPT-99813 Level 3 Est. Patient 11:15:58 COMPLIANCE PROFESSIONAL Renzo Thornton [facility] CPT-89852 Level 3 Est. Patient 15:28:23 COMPLIANCE PROFESSIONAL [facility]-38096 Level 4 Est. Patient 10:20:54 COMPLIANCE PROFESSIONAL Suzan Boo [facility] CPT-41336 Level 3 Est. Patient 11:47:37 COMPLIANCE PROFESSIONAL Ahmet Carbajal MD [facility] CPT-54704 Level 3 Est. Patient 10:40:11 COMPLIANCE PROFESSIONAL Ahmet Carbajal MD [facility] CPT-36287 Level 3 Est. Patient 15:07:06 COMPLIANCE PROFESSIONAL Neeraj Collins MD [facility] CPT-43006 Level 4 Est. Patient 14:45:00 COMPLIANCE PROFESSIONAL Ahmet Carbajal MD [facility] CPT-34688 Level 3 Est. Patient 13:59:59 CDT Luigi Martínez [facility]-47898 Level 3 Est. Patient 18:18:53 CDT Neeraj Collins MD [facility] CPT-15353 Level 3 Est. Patient 15:50:44 CDT Vishal Hui MD [facility] CPT-72478 Level 3 Est. Patient 11:36:17 CDT Ahmet Carbajal MD [facility] CPT-66348 Level 3 Est. Patient 13:29:16 CDT Vishal Hui MD [facility] CPT-27254 Level 3 Est. Patient 14:27:52 CDT Neeraj Collins MD [facility] CPT-47977 Level 3 Est. Patient 08:56:03 CDT Luigi Martínez [facility] CPT-80289 Level 4 Est. Patient 12:11:48 CDT Fabiola Johnson [facility] CPT-63238 Level 3 New Patient 16:53:37 CDT Albert Caldera MD [facility] CPT-37616 Level 3 Est. Patient 11:25:49 CDT Renzo Thornton DO [facility] CPT-03668 Level 3 Est. Patient 15:22:01 CDT Ahmet Carbajal MD [facility] CPT-07665 Level 4 Est. Patient 09:00:51 COMPLIANCE PROFESSIONAL Vishal Hui MD [facility] CPT-17815 Level 3 Est. Patient 11:37:33 COMPLIANCE PROFESSIONAL Vishal Hui MD [facility] CPT-33680 Level 3 Est. Patient 08:41:09 COMPLIANCE PROFESSIONAL Vishal Hui MD [facility] CPT-36476 Level 4 Est. Patient 10:19:35 COMPLIANCE PROFESSIONAL Vishal Hui MD [facility] CPT-09224 Level 3 Est. Patient 13:35:45 CDT Vishal Hui MD [facility] CPT-71168 Level 4 Est. Patient 10:08:37 CDT Vishal Hui MD [facility] CPT-75161 Level 3 Est. Patient 11:22:10 CDT Vishal Hui MD [facility] CPT-51941 Level 3 Est. Patient 11:03:32 CDT Sahara Rodriguez MD [facility] CPT-16324 Level 3 Est. Patient 09:41:35 CDT Vishal Hui MD [facility] CPT-43942 Level 3 Est. Patient 12:00:41 CDT Neeraj Collins MD [facility] CPT-16138 Level 3 Est. Patient 09:16:24 CDT Vishal Hui MD [facility] CPT-63264 Level 4 Est. Patient 13:59:09 CDT Neeraj Collins MD [facility] CPT-79993 Level 3 Est. Patient 15:19:43 CDT Renzo Thornton DO [facility] CPT-72594 Level 3 Est. Patient 18:10:26 CDT Sahara Rodriguez MD [facility]-68866 Level 3 Est. Patient 14:49:50 CDT Vishal Hui MD [facility] CPT-85450 Level 4 Est. Patient 18:41:46 CDT Neeraj Collins MD [facility] CPT-90835 Level 4 Est. Patient 09:18:38 COMPLIANCE PROFESSIONAL Vishal Hui MD [facility] CPT-26853 Level 3 Est. Patient 14:43:55 COMPLIANCE PROFESSIONAL Vishal Hui MD [facility] CPT-00522 Level 3 Est. Patient 15:26:33 COMPLIANCE PROFESSIONAL aShara Rodriguez MD PhD [facility] CPT-17624 Level 3 Est. Patient 10:32:14 COMPLIANCE PROFESSIONAL Vishal Hui MD [facility] CPT-08180 Level 3 Est. Patient 15:12:52 COMPLIANCE PROFESSIONAL Vishal Hui MD [facility] CPT-75268 Level 4 Est. Patient 09:19:27 CDT Vishal Hui MD [facility] CPT-47527 Level 3 Est. Patient 15:53:00 CDT Renzo Thornton [facility] CPT-18669 Level 3 Est. Patient 15:50:30 CDT Renzo Thornton [facility] CPT-77567 Level 3 Est. Patient 16:55:24 CDT Vishal Hui MD [facility] Procedures Code Procedure Name Date Entry Date Standard Description CPT-76490 Venipuncture Draw Fee 10:53:17 CDT CPT-39049 EKG Trac and Interp - XRAY USE ONLY 15:59:30 CDT 09/13 CPT-56004 Chest 1V Frontal - XRAY USE ONLY 15:59:30 CDT CPT-05856 Venipuncture Draw Fee 15:44:02 CDT CPT-52988 Venipuncture Draw Fee 08:41:12 CDT CPT-42764 Abd compl w upright - XRAY USE ONLY 10:27:59 CDT 06/28 CPT-13697 Smoking Cessation counseling 11:15:58 COMPLIANCE PROFESSIONAL CPT-G0439 Subsequent Annual Wellness Exam 09:30:58 COMPLIANCE PROFESSIONAL CPT-21291 TSH - LAB USE ONLY 08:50:26 COMPLIANCE PROFESSIONAL CPT-73929 CBC - LAB USE ONLY 08:50:26 COMPLIANCE PROFESSIONAL CPT-35833 Venipuncture Draw Fee 08:50:26 COMPLIANCE PROFESSIONAL CPT-69480 Abx/Therapy Injection 17:34:30 COMPLIANCE PROFESSIONAL CPT-10816 Nexplanon Removal with Reinsertion 14:09:32 CDT CPT-J7307 Nexplanon (Implant) 14:09:32 CDT CPT-OV Office Visit 14:09:32 CDT CPT-39426 UA w micro - LAB USE ONLY 16:21:13 CDT CPT-95921 Wet Mount - LAB USE ONLY 16:21:13 CDT CPT-15622 First Vx - Ix admin for Medicare patients 14:37:47 CDT CPT-29882 Fluzone Preservative Free Intramuscular Suspension 14:37 :47 CDT CPT-63605 Abx/Therapy Injection 13:54:22 CDT CPT-36901 Abx/Therapy Injection 08:47:09 CDT CPT-49994 Abx/Therapy Injection 13:29:56 CDT CPT-80419 Abx/Therapy Injection 08:36:16 CDT CPT-13677 Wet Mount - LAB USE ONLY 17:44:58 CDT CPT-11118 UA w micro - LAB USE ONLY 17:44:58 CDT CPT-72831 CMP - LAB USE ONLY 17:44:58 CDT CPT-59554 Venipuncture Draw Fee 17:44:58 CDT CPT-05002 Cervical Min 4V - XRAY USE ONLY 09:01:40 CDT CPT-93025 Chest 2V Frontal and Lat - XRAY USE ONLY 11:06:31 CDT CPT-29027 EKG Trac and Interp - XRAY USE ONLY 11:31:43 CDT 08/26 CPT-J3420 Vitamin B12 1000mcg (Cyanocobalamin) 08:10:26 COMPLIANCE PROFESSIONAL 04/12 CPT-95584 Abx/Therapy Injection 08:10:26 COMPLIANCE PROFESSIONAL CPT-G0438 Initial Annual Wellness Exam 19:01:01 COMPLIANCE PROFESSIONAL CPT-J3420 Vitamin B12 1000mcg (Cyanocobalamin) 16:57:46 CDT 08/14 CPT-28384 Recombivax HB Injection Suspension 5 MCG/0.5ML 08:37:50 COMPLIANCE PROFESSIONAL CPT-41098 Immunization Single Admin 08:37:50 COMPLIANCE PROFESSIONAL CPT-J3420 Vitamin B12 1000mcg (Cyanocobalamin) 08:32:16 COMPLIANCE PROFESSIONAL 03/11 CPT-78134 Abx/Therapy Injection 08:32:16 COMPLIANCE PROFESSIONAL CPT-51021 Chest 2V Frontal and Lat 11:46:38 COMPLIANCE PROFESSIONAL CPT-78076 Venipuncture Draw Fee 09:12:45 COMPLIANCE PROFESSIONAL CPT-J3420 Vitamin B12 1000mcg (Cyanocobalamin) 08:50:15 COMPLIANCE PROFESSIONAL 02/08 CPT-96082 Abx/Therapy Injection 08:50:15 COMPLIANCE PROFESSIONAL CPT-Cryo Cryotherapy 10:19:35 COMPLIANCE PROFESSIONAL CPT-000 Give Appropriate Flu Vaccine 09:22:16 CDT CPT-J3420 Vitamin B12 1000mcg (Cyanocobalamin) 19:08:57 CDT 01/11 CPT-22476 Abx/Therapy Injection 19:08:57 CDT CPT-J3420 Vitamin B12 1000mcg (Cyanocobalamin) 08:19:08 CDT 12/11 CPT-08397 Abx/Therapy Injection 08:19:08 CDT CPT-J3420 Vitamin B12 1000mcg (Cyanocobalamin) 14:48:00 CDT 11/09 CPT-55583 Abx/Therapy Injection 14:47:59 CDT CPT-J3420 Vitamin B12 1000mcg (Cyanocobalamin) 08:34:04 CDT 10/09 CPT-44938 Abx/Therapy Injection 08:34:04 CDT CPT-J3420 Vitamin B12 1000mcg (Cyanocobalamin) 09:18:52 CDT 09/11 CPT-48429 Abx/Therapy Injection 09:18:52 CDT CPT-J3420 Vitamin B12 1000mcg (Cyanocobalamin) 08:35:44 CDT 09/04 CPT-09930 Abx/Therapy Injection 08:35:44 CDT CPT-87935 Immunization Single Admin 11:07:16 CDT CPT-59914 Hepatitis B adult IM 11:07:16 CDT CPT-J3420 Vitamin B12 1000mcg (Cyanocobalamin) 11:00:49 CDT 08/28 CPT-J1040 Depo Medrol 80 mg (Methyl Prednisolone Acetate) 11:00: 49 CDT CPT-92736 Abx/Therapy Injection 11:00:49 CDT CPT-J1040 Depo Medrol 80 mg (Methyl Prednisolone Acetate) 09:16: 23 CDT CPT-J3420 Vitamin B12 1000mcg (Cyanocobalamin) 08:27:05 CDT 08/20 CPT-57022 Abx/Therapy Injection 08:27:05 CDT CPT-71123 Recombivax HB Injection Suspension 5 MCG/0.5ML 10:00:41 CDT CPT-32371 Administration single or combination vaccine inc oral 10 :00:41 CDT CPT-24312 Sono transvag pelvis non OB uterus ovaries cervix 16:36: 57 CDT CPT-62532 LS spine comp w obliq 09:50:55 COMPLIANCE PROFESSIONAL CPT-39852 Abd compl w upright 09:50:55 COMPLIANCE PROFESSIONAL CPT-J1100 Decadron 4mg (Dexamethasone) 15:51:24 COMPLIANCE PROFESSIONAL CPT-J1030 Depo Medrol 40 mg (Methyl Prednisolone Acetate) 15:51: 24 COMPLIANCE PROFESSIONAL CPT-03530 Abx/Therapy Injection 15:51:24 COMPLIANCE PROFESSIONAL CPT-J1100 Decadron 4mg (Dexamethasone) 15:26:33 COMPLIANCE PROFESSIONAL CPT-J1030 Depo Medrol 40 mg (Methyl Prednisolone Acetate) 15:26: 33 COMPLIANCE PROFESSIONAL CPT-62613 Sono retroperitoneal complete kidneys and bladder 17:15: 30 CDT CPT-10369 Abd compl w upright 16:09:25 CDT CPT-J1100 Decadron 8mg (Dexamethasone) 17:07:57 CDT CPT-69033 Abx/Therapy Injection 17:07:57 CDT CPT-J1100 Decadron 8mg (Dexamethasone) 16:55:24 CDT CPT-73935 Chest 2V Frontal and Lat 16:32:44 CDT
--- OUTSIDE RECORDS SUMMARY | 2016-11-04 14:23 | XMS REPORT | Clinical Summary ---
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 Shortness of breath Nocturnal hypoxia 799.02 Active Fabiola Johnson HEAD KNITTING MACHINE FIXER Hypoxemia Neck pain 723.1 Active Luigi Martínez HEAD KNITTING MACHINE FIXER Cervicalgia Vaginal discharge 623.5 Active Neeraj Collins [...] TABS take as directed 2015 VARENICLINE TARTRATE 80544421140 Active Ahmet Carbajal MD Active CHANTIX 1 MG TABS 1 twice a day to help quit smoking VARENICLINE TARTRATE 43113114574 Active Ahmet Carbajal MD Active HYDROCODONE-ACETAMINOPHEN 5-325 MG TABS 1 to 2 four times a day as needed for pain use until can be seen by specialist HYDROCODONE- ACETAMINOPHEN 82289971381 No Longer Active Vishal Hui MD Active PROAIR HFA 108 (90 BASE) MCG/ACT AERS 2 puffs four times a day as needed 2015 ALBUTEROL SULFATE 79688881024 No Longer Active Vishal Hui MD Active PREDNISONE 20 MG TABS 2 daily for 5 days then 1 daily for 5 days PREDNISONE 63056460661 No Longer Active Vishal Hui MD Active ZITHROMAX Z-EARNEST 250 MG TABS 2 today and then 1 daily for 4 days AZITHROMYCIN 82493914339 No Longer Active Vishal Hui MD Active DICLOFENAC SODIUM 50 MG TBEC 1 tablet by mouth four times daily PRN Pain 2015 DICLOFENAC SODIUM 33442765307 Active Vishal Hui MD Active DICLOFENAC POTASSIUM TABS Take 1 tablet twice a day (pt. is not sure of the dose.) DICLOFENAC POTASSIUM TABS 68985558510 No Longer Active Vishal Hui MD Active VERAPAMIL HCL ER 120 MG ORAL CR-TABS Take 1 tablet by mouth twice a day. VERAPAMIL HCL 59797239221 Active Vishal Hui MD Active FLAGYL 500 MG TAB 1 tablet by mouth bid METRONIDAZOLE 80690882834 No Longer Active Vishal Hui MD Active ABILIFY MAINTENA 400 MG IM SUSR 400mg injection every 28 days ARIPIPRAZOLE 12314569058 Active Silvia Ervinum STRAIGHT KNIFE MACHINE CUTTER Active FLUTICASONE PROPIONATE 50 MCG/ACT SUSP 2 sprays each nostril daily before bed. FLUTICASONE PROPIONATE 33630052195 Active Fabiola Johnson APRN Active ADZENYS XR-ODT 6.3 MG ORAL TBED 1 tab po daily for ADHD AMPHETAMINE 58531534102 Active Fabiola Johnson APRN Active BENADRYL 25 MG CAP 4 po at bedtime for insomnia DIPHENHYDRAMINE HCL 56700508175 Active Fabiola Johnson APRN Active KLONOPIN 1 MG ORAL TABS 1 tab po TID CLONAZEPAM 99230266173 Active Fabiola Johnson APRN Active VALIUM 5 MG TAB Take 1-2 tablets daily DIAZEPAM 43783196586 No Longer Active Fabiola Johnson APRN Active METOPROLOL TARTRATE 25 MG ORAL TABS 1/2 tablet twice daily for heart rate and blood pressure METOPROLOL TARTRATE 73090230499 No Longer Active Fabiola Johnson APRN Active MIRALAX ORAL POWD 17GMS DAILY IN WATER POLYETHYLENE GLYCOL 3350 10865320426 Active Vishal Hui MD Active VIIBRYD 10 MG ORAL TABS Take 1 tablet once a day VILAZODONE HCL 36639504697 Active Ahmet Carbajal MD Active MIRALAX PACK 1 po qd PRN Constipation POLYETHYLENE GLYCOL 3350 51633446014 No Longer Active Ahmet Carbajal MD Active MINIPRESS 2 MG CAPS 4 cap po at night PRAZOSIN HCL 59495304815 No Longer Active Ahmet Carbajal MD Active PIROXICAM 20 MG CAPS 1 cap po qd PRN Pain PIROXICAM 43303824536 No Longer Active Ahmet Carbajal MD Active TRAMADOL HCL 50 MG TABS 1-2 po TID PRN Pain TRAMADOL HCL 63266375155 No Longer Active Ahmet Carbajal MD Active METOPROLOL TARTRATE 50 MG TAB 1 po bid METOPROLOL TARTRATE 13120953377 No Longer Active Ahmet Carbajal MD Active ABILIFY 15 MG ORAL TABS 1 tab daily ARIPIPRAZOLE 77057343102 No Longer Active Ahmet Carbajal MD Active PROZAC 20 MG ORAL CAPS 1 tab daily FLUOXETINE HCL 62366950996 No Longer Active Ahmet Carbajal MD Active AMBIEN 5 MG ORAL TABS 1 tab at bedtime ZOLPIDEM TARTRATE 89223841769 No Longer Active Ahmet Carbajal MD Active PREDNISONE 20 MG TAB 2 tabs daily for 4 days, 1 tab daily for 4 days, 1/2 tab daily for 4 days PREDNISONE 95831305242 No Longer Active Ahmet Carbajal MD Active KEFLEX 500 MG CAP 1 po TID x 10 days CEPHALEXIN 95868303405 No Longer Active Vishal Hui MD Active IMITREX 50 MG ORAL TABS 1/2 tab every 6 hours prn SUMATRIPTAN SUCCINATE 82025147530 Active Jioral Martínez APRN Active TOPAMAX 50 MG ORAL TABS 1 tab twice daily TOPIRAMATE 95787700602 Active Vishal Hui MD Active SAPHRIS 5 MG SUBL 1 po bid ASENAPINE MALEATE 80120771251 No Longer Active Luigi Martínez APRN Active LATUDA 80 MG TABS Take one by mouth daily LURASIDONE HCL 82181556537 No Longer Active Luigi Martínez APRN Active AMLODIPINE BESYLATE 5 MG TABS 1 tablet by mouth daily AMLODIPINE BESYLATE 64707213544 No Longer Active Luigi Martínez APRN Active AMITRIPTYLINE HCL 100 MG TAB one at hs AMITRIPTYLINE HCL 22938396252 No Longer Active Vishal Hui MD Active TRAZODONE HCL 100 MG TAB take 1 at bedtime TRAZODONE HCL 37361245677 No Longer Active Vishal Hui MD Active VYVANSE 40 MG CAPS 1 daily, LISDEXAMFETAMINE DIMESYLATE 39310895696 No Longer Active Vishal Hui MD Active IBUPROFEN 600 MG TAB 1 po TID PRN IBUPROFEN 65619090351 No Longer Active Vishal Hui MD Active PROZAC 20 MG CAP Take one by mouth daily FLUOXETINE HCL 32077501195 No Longer Active Vishal Hui MD Active ZOFRAN 4 MG TABS 1 po q6hr PRN Nausea ONDANSETRON HCL Active Vishal Hui MD Active BACTRIM DS 800-160 MG TABS 1 pill by mouth twice daily SULFAMETHOXAZOLE-TRIMETHOPRIM 86452138482 No Longer Active Sahara Rodriguez MD PhD Active DIFLUCAN 150 MG TAB 1 tablet by mouth daily FLUCONAZOLE 92979838729 No Longer Active Vishal Hui MD Active TIZANIDINE HCL 4 MG TABS 1 po q6hr PRN Muscle Spasm/Back Pain TIZANIDINE HCL 30072215150 Active Vishal Hui MD Active CLINDAMYCIN HCL 150 MG CAPS 1 four times a day CLINDAMYCIN HCL 37259920309 No Longer Active Neeraj Collins MD Active KEFLEX 500 MG ORAL CAPS 1 cap QID by mouth CEPHALEXIN 50957925151 No Longer Active Neeraj Collins MD Active DIFLUCAN 150 MG TABS 1 pill every other day x 2 doses FLUCONAZOLE 15592450026 No Longer Active Sahara Rodriguez MD PhD Active MELATONIN 3 MG CAPS 2 po q hs MELATONIN 56574790833 No Longer Active Sahara Rodriguez MD PhD Active MULTIVITAMINS CAPS Take one by mouth daily MULTIPLE VITAMIN 84116100359 No Longer Active Sahara Rodriguez MD PhD Active BACTRIM DS 800-160 MG TAB 1 tab by mouth twice daily TRIMETHOPRIM-SULFAMETHOXAZOLE 85002840753 No Longer Active Sahara Rodriguez MD PhD Active [facility] PROBIOTIC ORAL CHEW 2 daily po PROBIOTIC PRODUCT 90718066414 No Longer Active Sahara Rodriguez MD PhD Active BACTRIM DS 800-160 MG TABS 1 po BID x 7 days SULFAMETHOXAZOLE-TRIMETHOPRIM 52829909694 No Longer Active Vishal Hui MD Active CHANTIX STARTING MONTH EARNEST 0.5 MG X 11 & 1 MG X 42 TABS 0.5mg daily for 3 days , then 0.5mg BID for 4 days, then 1mg BID VARENICLINE TARTRATE 13756168820 No Longer Active TAMARA Gray Active VERAPAMIL HCL CR 120 MG TAB CR 1 po bid VERAPAMIL HCL 43210798607 No Longer Active Vihsal Hui MD Active METOPROLOL SUCCINATE 50 MG TB24 1 tablet by mouth daily METOPROLOL SUCCINATE 55418677343 No Longer Active Vishal Hui MD Active SAPHRIS 10 MG SUBL 1 tab po bid ASENAPINE MALEATE 21941254530 No Longer Active Vishal Hui MD Active LISINOPRIL 20 MG TABS 1 tab po qd LISINOPRIL 36625814599 No Longer Active Vishal Hui MD Active LATUDA 20 MG TABS Take one by mouth daily LURASIDONE HCL 78185515487 No Longer Active Vishal Hui MD Active TRAZODONE HCL 50 MG TABS 1/2 tab po qd prn for anxiety TRAZODONE HCL 25177770904 No Longer Active Vishal Hui MD Active OMEPRAZOLE 20 MG TBEC 1 po q a.m. 30min prior to first food intake OMEPRAZOLE 32717638259 Active Vishal Hui MD Active RANITIDINE HCL 150 MG CAPS 1 twice a day RANITIDINE HCL 21863999980 Active Luigi Martínez APRN Active LINZESS 290 MCG CAPS Take one by mouth daily LINACLOTIDE 05279101941 No Longer Active Vishal Hui MD Active SAPHRIS 5 MG SUBL 1 tab po qd ASENAPINE MALEATE 04999709902 No Longer Active Vishal Hui MD Active ZALEPLON 10 MG CAPS 1 cap po every other night ZALEPLON 39696844803 No Longer Active Vishal Hui MD Active LYRICA 50 MG CAPS 1 tab po TID PREGABALIN 12909166361 No Longer Active Vishal Hui MD Active LORATADINE 10 MG TABS 1 tab po qd LORATADINE 39015272225 No Longer Active Vishal Hui MD Active VERAPAMIL HCL ER 180 MG CR-TABS 1 tab po bid VERAPAMIL HCL 46558848240 No Longer Active Vishal Hui MD Active MIRALAX POWD 1 capfull once daily POLYETHYLENE GLYCOL 3350 12286141626 No Longer Active Vishal Hui MD Active PREDNISONE 20 MG TABS 1 tab po qd PREDNISONE 93569585349 No Longer Active Renzo Thornton DO Active LEVOFLOXACIN 500 MG TABS 1 tab po qd LEVOFLOXACIN 69600451946 No Longer Active Renzo Thornton DO Active BUSPIRONE HCL 15 MG TABS 1 tab po TID BUSPIRONE HCL 64292956368 No Longer Active Renzo Thornton DO Active BENZTROPINE MESYLATE 1 MG TABS 1 tab po qd BENZTROPINE MESYLATE 14793513542 No Longer Active Renzo Thornton DO Active ATENOLOL 25 MG TABS 1 tab po qd ATENOLOL 70940340273 No Longer Active Renzo Thornton DO Active ESCITALOPRAM OXALATE 20 MG TABS 1 tab po qd ESCITALOPRAM OXALATE 17711151273 No Longer Active Renzo Thornton DO Active ADVAIR DISKUS 250-50 MCG/DOSE AEPB 1 puff BID FLUTICASONE-SALMETEROL 06144599526 No Longer Active Renzo Thornton DO Active PREDNISONE 20 MG TAB 2 tabs daily for 3 days, 1 tab daily for 3 days, 1/2 tab daily for 2 days PREDNISONE 64593522720 No Longer Active Vishal Hui MD Active CEFDINIR 300 MG CAPS by mouth twice a day CEFDINIR 53846909973 No Longer Active Vishal Hui MD Active LANSOPRAZOLE 30 MG CPDR 1 cap po qd LANSOPRAZOLE 25351574356 No Longer Active Vishal Hui MD Active BACLOFEN 20 MG TABS 1 tab po tid BACLOFEN 20174676871 No Longer Active Vishal Hui MD Active ADVAIR DISKUS 250-50 MCG/DOSE AEPB 1 puff BID ADVAIR DISKUS 250-50 MCG/DOSE AEPB FLUTICASONE-SALMETEROL Inactive ESCITALOPRAM OXALATE 20 MG TABS 1 tab po qd ESCITALOPRAM OXALATE 20 MG TABS 151646 ESCITALOPRAM OXALATE Inactive ATENOLOL 25 MG TABS 1 tab po qd ATENOLOL 25 MG TABS 637110 ATENOLOL Inactive BENZTROPINE MESYLATE 1 MG TABS 1 tab po qd BENZTROPINE MESYLATE 1 MG TABS 703080 BENZTROPINE MESYLATE Inactive BUSPIRONE HCL 15 MG TABS 1 tab po TID BUSPIRONE HCL 15 MG TABS 039962 BUSPIRONE HCL Inactive LEVOFLOXACIN 500 MG TABS 1 tab po qd LEVOFLOXACIN 500 MG TABS 007594 LEVOFLOXACIN Inactive PREDNISONE 20 MG TABS 1 tab po qd PREDNISONE 20 MG TABS 020526 PREDNISONE Inactive MIRALAX POWD 1 capfull once daily MIRALAX POWD 522887 POLYETHYLENE GLYCOL 3350 Inactive VERAPAMIL HCL ER 180 MG CR-TABS 1 tab po bid VERAPAMIL HCL ER 180 MG CR-TABS VERAPAMIL HCL Inactive LORATADINE 10 MG TABS 1 tab po qd LORATADINE 10 MG TABS 189125 LORATADINE Inactive LYRICA 50 MG CAPS 1 tab po TID LYRICA 50 MG CAPS PREGABALIN Inactive ZALEPLON 10 MG CAPS 1 cap po every other night ZALEPLON 10 MG CAPS 369712 ZALEPLON Inactive SAPHRIS 5 MG SUBL 1 tab po qd SAPHRIS 5 MG SUBL ASENAPINE MALEATE Inactive TRAZODONE HCL 50 MG TABS 1/2 tab po qd prn for anxiety TRAZODONE HCL 50 MG TABS 778571 TRAZODONE HCL Inactive LATUDA 20 MG TABS Take one by mouth daily LATUDA 20 MG TABS LURASIDONE HCL Inactive LISINOPRIL 20 MG TABS 1 tab po qd LISINOPRIL 20 MG TABS 112164 LISINOPRIL Inactive SAPHRIS 10 MG SUBL 1 [...] twice daily BACTRIM DS 800-160 MG TAB 858873 TRIMETHOPRIM-SULFAMETHOXAZOLE Inactive MULTIVITAMINS CAPS Take one by mouth daily MULTIVITAMINS CAPS MULTIPLE VITAMIN Inactive MELATONIN 3 MG CAPS 2 po q hs MELATONIN 3 MG CAPS 271997 MELATONIN Inactive KEFLEX 500 MG ORAL CAPS 1 cap QID by mouth KEFLEX 500 MG ORAL CAPS 018427 CEPHALEXIN Inactive CLINDAMYCIN HCL 150 MG CAPS 1 four times a day CLINDAMYCIN HCL 150 MG CAPS 973957 CLINDAMYCIN HCL Inactive DIFLUCAN 150 MG TAB 1 tablet by mouth daily DIFLUCAN 150 MG TAB 627591 FLUCONAZOLE Inactive PROZAC 20 MG CAP Take one by mouth daily PROZAC 20 MG CAP 184659 FLUOXETINE HCL Inactive IBUPROFEN 600 MG TAB 1 po TID PRN IBUPROFEN 600 MG TAB 667774 IBUPROFEN Inactive VYVANSE 40 MG CAPS 1 daily, VYVANSE 40 MG CAPS LISDEXAMFETAMINE DIMESYLATE Inactive TRAZODONE HCL 100 MG TAB take 1 at bedtime TRAZODONE HCL 100 MG TAB 499047 TRAZODONE HCL Inactive AMITRIPTYLINE HCL 100 MG TAB one at hs AMITRIPTYLINE HCL 100 MG TAB 057775 AMITRIPTYLINE HCL Inactive AMLODIPINE BESYLATE 5 MG TABS 1 tablet by mouth daily AMLODIPINE BESYLATE 5 MG TABS 636281 AMLODIPINE BESYLATE Inactive LATUDA 80 MG TABS Take one by mouth daily LATUDA 80 MG TABS LURASIDONE HCL Inactive SAPHRIS 5 MG SUBL 1 po bid SAPHRIS 5 MG SUBL ASENAPINE MALEATE Inactive PREDNISONE 20 MG TAB 2 tabs daily for 4 days, 1 tab daily for 4 days, 1/2 tab daily for 4 days PREDNISONE 20 MG TAB 719719 PREDNISONE Inactive AMBIEN 5 MG ORAL TABS 1 tab at bedtime AMBIEN 5 MG ORAL TABS 267530 ZOLPIDEM TARTRATE Inactive PROZAC 20 MG ORAL CAPS 1 tab daily PROZAC 20 MG ORAL CAPS 480109 FLUOXETINE HCL Inactive ABILIFY 15 MG ORAL TABS 1 tab daily ABILIFY 15 MG ORAL TABS 061351 ARIPIPRAZOLE Inactive METOPROLOL TARTRATE 50 MG TAB 1 po bid METOPROLOL TARTRATE 50 MG TAB 233632 METOPROLOL TARTRATE Inactive TRAMADOL HCL 50 MG TABS 1-2 po TID PRN Pain TRAMADOL HCL 50 MG TABS 367901 TRAMADOL HCL Inactive PIROXICAM 20 MG CAPS 1 cap po qd PRN Pain PIROXICAM 20 MG CAPS 328921 PIROXICAM Inactive MINIPRESS 2 MG CAPS 4 cap po at night MINIPRESS 2 MG CAPS 140552 PRAZOSIN HCL Inactive MIRALAX PACK 1 po qd PRN Constipation MIRALAX PACK 331685 POLYETHYLENE GLYCOL 3350 Inactive METOPROLOL TARTRATE 25 MG ORAL TABS 1/2 tablet twice daily for heart rate and blood pressure METOPROLOL TARTRATE 25 MG ORAL TABS 137224 METOPROLOL TARTRATE Inactive VALIUM 5 MG TAB Take 1-2 tablets daily VALIUM 5 MG TAB 616338 DIAZEPAM Inactive FLAGYL 500 MG TAB 1 tablet by mouth bid FLAGYL 500 MG TAB 719789 METRONIDAZOLE Inactive DICLOFENAC POTASSIUM TABS Take 1 tablet twice a day (pt. is not sure of the dose.) DICLOFENAC POTASSIUM TABS DICLOFENAC POTASSIUM TABS Inactive ZITHROMAX Z-EARNEST 250 MG TABS 2 today and then 1 daily for 4 days ZITHROMAX Z-EARNEST 250 MG TABS 7613397 AZITHROMYCIN Inactive PREDNISONE 20 MG TABS 2 daily for 5 days then 1 daily for 5 days PREDNISONE 20 MG TABS 484924 PREDNISONE Inactive PROAIR HFA 108 (90 BASE) MCG/ACT AERS 2 puffs four times a day as needed 2015 PROAIR HFA 108 (90 BASE) MCG/ACT AERS ALBUTEROL SULFATE Inactive HYDROCODONE-ACETAMINOPHEN 5-325 MG TABS 1 to 2 four times a day as needed for pain use until can be seen by specialist HYDROCODONE- ACETAMINOPHEN 5-325 MG TABS 853093 HYDROCODONE-ACETAMINOPHEN Inactive CEFDINIR 300 MG CAPS by mouth twice a day CEFDINIR 300 MG CAPS 258655 CEFDINIR Inactive PREDNISONE 20 MG TAB 2 tabs daily for 3 days, 1 tab daily for 3 days, 1/2 tab daily for 2 days PREDNISONE 20 MG TAB 230566 PREDNISONE Inactive BACTRIM DS 800-160 MG TABS 1 po BID x 7 days BACTRIM DS 800-160 MG TABS 587019 SULFAMETHOXAZOLE-TRIMETHOPRIM Inactive DIFLUCAN 150 MG TABS 1 pill every other day x 2 doses DIFLUCAN 150 MG TABS 610321 FLUCONAZOLE Inactive BACTRIM DS 800-160 MG TABS 1 pill by mouth twice daily BACTRIM DS 800-160 MG TABS 313223 SULFAMETHOXAZOLE-TRIMETHOPRIM Inactive KEFLEX 500 MG CAP 1 po TID x 10 days KEFLEX 500 MG CAP 328463 CEPHALEXIN Inactive Advance Directives Directive Description Start [...] BP mcnalyl blood pressure, systolic - 8480-6 116 mm[Hg] [...] % 11.6-14.8 platelet count 394 10^3/MM^3 10*3/mm3 939-838 6318/01/11 leukocyte count, blood 13.8 10^3/MM^3 10*3/mm3 4.6-10.2 [...] Panel - Chemistry sodium, serum 139 mmol/L 296-308 3019/12/03 carbon dioxide, venous blood 28.5 mmol/L 21.0-32.0 [...] 5.5 % 4.3-6.0 cholesterol, serum 159 mg/dL 402-562 9928/12/03 triglyceride, serum, fasting 118 mg/dL 30-200 HDL [...] Panel - Chemistry sodium, serum 139 mmol/L 039-567 7950/12/22 carbon dioxide, venous blood 26.8 mmol/L 21.0-32.0 potassium, serum 4.2 mmol/L 3.5-5.2 chloride, serum 103 mmol/L 98-107 blood glucose 115 mg/dL 65-110 urea nitrogen, blood 20 mg/dL 7-18 creatinine, serum 0.90 mg/dL 0.55-1.30 alanine aminotransferase (SGPT), serum 38 U/L -78 aspartate aminotransferase (SGOT), serum 19 U/L 15-37 calcium, serum 8.6 mg/dL 8.5-10.1 bilirubin, serum, total 0.30 mg/dL 0.00-1.00 sodium, serum 139 mmol/L 624-571 5804/01/11 carbon dioxide, venous blood 26.6 mmol/L 21.0-32.0 potassium, serum 4.1 mmol/L 3.5-5.2 chloride, serum 100 mmol/L 98-107 blood glucose 86 mg/dL 65-110 urea nitrogen, blood 16 mg/dL 7-18 creatinine, serum 1.00 mg/dL 0.55-1.30 alanine aminotransferase (SGPT), serum 48 U/L 78 aspartate aminotransferase (SGOT), serum 17 U/L 15-37 calcium, serum 9.1 mg/dL 8.5-10.1 bilirubin, serum, total 0.40 mg/dL 0.00-1.00 sodium, serum 142 mmol/L 266-675 8969/06/08 carbon dioxide, venous blood 27.6 mmol/L 21.0-32.0 potassium, serum 4.0 mmol/L 3.5-5.2 chloride, serum 105 mmol/L 98-107 blood glucose 95 mg/dL 65-110 urea nitrogen, blood 8 mg/dL 7-18 creatinine, serum 0.75 mg/dL 0.55-1.30 alanine aminotransferase (SGPT), serum 49 U/L - aspartate aminotransferase (SGOT), serum 28 U/L 15-37 calcium, serum 9.4 mg/dL 8.5-10.1 bilirubin, serum, total 0.30 mg/dL 0.00-1.00 sodium, serum 140 mmol/L 194-367 0431/08/08 carbon dioxide, venous blood 33.7 mmol/L 21.0-32.0 [...] Rate - Chemistry sodium, serum 139 mmol/L 548-868 8214/12/11 carbon dioxide, venous blood 25.4 mmol/L 21.0-32.0 [...] mg/dL Encounters Code Encounter Date Provider Facility CPT-61457 Level 3 Est. Patient 11:36:17 CDT Ahmet Carbajal MD [facility] CPT-80766 Level 3 Est. Patient 13:29:16 CDT Vishal Hui MD [facility] CPT-33056 Level 3 Est. Patient 14:27:52 CDT Neeraj Collins MD [facility] CPT-97323 Level 3 Est. Patient 08:56:03 CDT Jillina Frazell [facility] CPT-61529 Level 4 Est. Patient 12:11:48 CDT Fabiola Johnson [facility] CPT-79980 Level 3 New Patient 16:53:37 CDT Albert Caldera MD [facility] CPT-63885 Level 3 Est. Patient 11:25:49 CDT Renzo Thornton DO [facility] CPT-59416 Level 3 Est. Patient 15:22:01 CDT Ahmet Carbajal MD [facility] CPT-90292 Level 4 Est. Patient 09:00:51 [employer]RI[employer] ELECTRICIAN JOURNEYMAN Vishal Hui MD [facility] CPT-74509 Level 3 Est. Patient 11:37:33 INDUSTRIAL ELECTRICIAN JOURNEYMAN Vsihal Hui MD [facility] CPT-91391 Level 3 Est. Patient 08:41:09 INDUSTRI[employer] ELECTRICIAN JOURNEYMAN Vishal Hui MD [facility] CPT-65958 Level 4 Est. Patient 10:19:35 INDUSTRI[employer] ELECTRICIAN JOURNEYMAN Vishal Hui MD [facility] CPT-58315 Level 3 Est. Patient 13:35:45 CDT Vishal Hui MD [facility] CPT-72024 Level 4 Est. Patient 10:08:37 CDT Vishal Hui MD [facility] CPT-85775 Level 3 Est. Patient 11:22:10 CDT Vishal Hui MD [facility] CPT-69985 Level 3 Est. Patient 11:03:32 CDT Sahara Rodriguez MD PhD [facility] CPT-31494 Level 3 Est. Patient 09:41:35 CDT Vishal Hui MD [facility]-12324 Level 3 Est. Patient 12:00:41 CDT Neeraj Collins MD [facility] CPT-52104 Level 3 Est. Patient 09:16:24 CDT Vishal Hui MD [facility] CPT-41572 Level 4 Est. Patient 13:59:09 CDT Neeraj Collins MD [facility] CPT-36933 Level 3 Est. Patient 15:19:43 CDT Renzo Thornton [facility] CPT-87598 Level 3 Est. Patient 18:10:26 CDT Sahara Rodriguez MD [facility] CPT-41537 Level 3 Est. Patient 14:49:50 CDT Vishal Hui MD [facility] CPT-11454 Level 4 Est. Patient 18:41:46 CDT Neeraj Collins MD [facility] CPT-86565 Level 4 Est. Patient 09:18:38 IND[employer]RI[employer] ELECTRICIAN JOURNEYMAN Vishal Hui MD [facility] CPT-57551 Level 3 Est. Patient 14:43:55 IND[employer]RI[employer] ELECTRICIAN JOURNEYMAN Vishal Hui MD [facility] CPT-26278 Level 3 Est. Patient 15:26:33 IND[employer] ELECTRICIAN JOURNEYMAN Sahara Rodriguez MD [facility] CPT-89967 Level 3 Est. Patient 10:32:14 [employer] ELECTRICIAN JOURNEYMAN Vishal Hui MD [facility] CPT-09011 Level 3 Est. Patient 15:12:52 [employer]RI[employer] ELECTRICIAN JOURNEYMAN Vishal Hui MD [facility] CPT-73335 Level 4 Est. Patient 09:19:27 CDT Vishal Hui MD [facility] CPT-79802 Level 3 Est. Patient 15:53:00 CDT Renzo Thornton [facility] CPT-11372 Level 3 Est. Patient 15:50:30 CDT Renzo Thornton [facility] CPT-39950 Level 3 Est. Patient 16:55:24 CDT Vishal Hui MD [facility] Procedures Code Procedure Name Date Entry Date Standard Description CPT-93958 Abx/Therapy Injection 08:47:09 CDT CPT-99942 Abx/Therapy Injection 13:29:56 CDT CPT-72715 Abx/Therapy Injection 08:36:16 CDT CPT-75550 Wet Mount - LAB USE ONLY 17:44:58 CDT CPT-35402 UA w micro - LAB USE ONLY 17:44:58 CDT CPT-15739 CMP - LAB USE ONLY 17:44:58 CDT CPT-03531 Venipuncture Draw Fee 17:44:58 CDT CPT-81935 Cervical Min 4V - XRAY USE ONLY 09:01:40 CDT CPT-92127 Chest 2V Frontal and Lat - XRAY USE ONLY 11:06:31 CDT CPT-94001 EKG Trac and Interp - XRAY USE ONLY 11:31:43 CDT 08/26 CPT-J3420 Vitamin B12 1000mcg (Cyanocobalamin) 08:10:26 [employer] J[employer]NEY[employer] 04/12 CPT-30252 Abx/Therapy Injection 08:10:26 [employer] JOURNEY[employer] CPT-G0438 Initial Annual Wellness Exam 19:01:01 [employer] JOURNEY[employer] CPT-J3420 Vitamin B12 1000mcg (Cyanocobalamin) 16:57:46 CDT 08/14 CPT-72035 Recombivax HB Injection Suspension 5 MCG/0.5ML 08:37:50 [employer]NEY[employer] CPT-56528 Immunization Single Admin 08:37:50 [employer]NEY[employer] CPT-J3420 Vitamin B12 1000mcg (Cyanocobalamin) 08:32:16 [employer]IC[employer] JOURNEYMAN 03/11 CPT-82836 Abx/Therapy Injection 08:32:16 [employer] JOURNEY[employer] CPT-72943 Chest 2V Frontal and Lat 11:46:38 [employer] JOURNEY[employer] CPT-64373 Venipuncture Draw Fee 09:12:45 [employer] JOURNEY[employer] CPT-J3420 Vitamin B12 1000mcg (Cyanocobalamin) 08:50:15 [employer]IC[employer] JOURNEYMAN 02/08 CPT-05506 Abx/Therapy Injection 08:50:15 [employer] JOURNEY[employer] CPT-Cryo Cryotherapy 10:19:35 [employer] JOURNEY[employer] CPT-000 Give Appropriate Flu Vaccine 09:22:16 CDT CPT-J3420 Vitamin B12 1000mcg (Cyanocobalamin) 19:08:57 CDT 01/11 CPT-66052 Abx/Therapy Injection 19:08:57 CDT CPT-J3420 Vitamin B12 1000mcg (Cyanocobalamin) 08:19:08 CDT 12/11 CPT-20722 Abx/Therapy Injection 08:19:08 CDT CPT-J3420 Vitamin B12 1000mcg (Cyanocobalamin) 14:48:00 CDT 11/09 CPT-87177 Abx/Therapy Injection 14:47:59 CDT CPT-J3420 Vitamin B12 1000mcg (Cyanocobalamin) 08:34:04 CDT 10/09 CPT-18495 Abx/Therapy Injection 08:34:04 CDT CPT-J3420 Vitamin B12 1000mcg (Cyanocobalamin) 09:18:52 CDT 09/11 CPT-10732 Abx/Therapy Injection 09:18:52 CDT CPT-J3420 Vitamin B12 1000mcg (Cyanocobalamin) 08:35:44 CDT 09/04 CPT-73670 Abx/Therapy Injection 08:35:44 CDT CPT-77957 Immunization Single Admin 11:07:16 CDT CPT-54748 Hepatitis B adult IM 11:07:16 CDT CPT-J3420 Vitamin B12 1000mcg (Cyanocobalamin) 11:00:49 CDT 08/28 CPT-J1040 Depo Medrol 80 mg (Methyl Prednisolone Acetate) 11:00: 49 CDT CPT-22878 Abx/Therapy Injection 11:00:49 CDT CPT-J1040 Depo Medrol 80 mg (Methyl Prednisolone Acetate) 09:16: 23 CDT CPT-J3420 Vitamin B12 1000mcg (Cyanocobalamin) 08:27:05 CDT 08/20 CPT-37018 Abx/Therapy Injection 08:27:05 CDT CPT-78359 Recombivax HB Injection Suspension 5 MCG/0.5ML 10:00:41 CDT CPT-04082 Administration single or combination vaccine inc oral 10 :00:41 CDT CPT-44556 Sono transvag pelvis non OB uterus ovaries cervix 16:36: 57 CDT CPT-41892 LS spine comp w obliq 09:50:55 [employer] CPT-01460 Abd compl w upright 09:50:55 [employer] CPT-J1100 Decadron 4mg (Dexamethasone) 15:51:24 [employer] CPT-J1030 Depo Medrol 40 mg (Methyl Prednisolone Acetate) 15:51: 24 [employer] CPT-58884 Abx/Therapy Injection 15:51:24 [employer] CPT-J1100 Decadron 4mg (Dexamethasone) 15:26:33 [employer] CPT-J1030 Depo Medrol 40 mg (Methyl Prednisolone Acetate) 15:26: 33 [employer] CPT-62675 Sono retroperitoneal complete kidneys and bladder 17:15: 30 CDT CPT-36553 Abd compl w upright 16:09:25 CDT CPT-J1100 Decadron 8mg (Dexamethasone) 17:07:57 CDT CPT-06003 Abx/Therapy Injection 17:07:57 CDT CPT-J1100 Decadron 8mg (Dexamethasone) 16:55:24 CDT CPT-51943 Chest 2V Frontal and Lat 16:32:44 CDT
--- OUTSIDE RECORDS SUMMARY | 2016-11-04 14:26 | XMS REPORT | Clinical Summary ---
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 FLUTICASONE PROPIONATE HFA 83687359890 Active Renzo Thornton DO Active TROPICAMIDE 0.5 % OPHTH SOLN 1 drop PRN eye spasms TROPICAMIDE 05116999962 Active Samantha Stephan RMA Active RISPERDAL 4 MG ORAL TABS 1 tab at bedtime RISPERIDONE 11488757367 Active Samantha Stephan RMA Active LEVAQUIN 500 MG TABS 1 daily for infection LEVOFLOXACIN 18396544172 Active Suzan Boo APRN Active TESSALON PERLES 100 MG CAPS 1 three times a day as needed for cough BENZONATATE 04775265396 Active Suzan Boo APRN Active ZOFRAN 4 MG TABS 1 po q6hr PRN Nausea ONDANSETRON HCL No Longer Active Suzan Boo APRN Active FLUTICASONE PROPIONATE 50 MCG/ACT SUSP 2 sprays each nostril daily before bed. FLUTICASONE PROPIONATE 67022042541 No Longer Active Suzan Boo APRN Active ASPIRIN 325 MG ORAL TABS 1 tab q.d ASPIRIN 47876336593 No Longer Active Suzan Boo APRN Active HALOPERIDOL 10 MG ORAL TABS 1 tab q.d HALOPERIDOL 10970603005 No Longer Active Suzan Boo APRN Active GUAIFENESIN-CODEINE 100-10 MG/5ML SYRP 5ml every 4 to 6 hours as needed for cough GUAIFENESIN-CODEINE 86066013590 No Longer Active Suzan Boo APRN Active ZITHROMAX Z-EARNEST 250 MG TABS 2 today and then 1 daily for 4 days AZITHROMYCIN 14758935352 No Longer Active Suzan Boo APRN Active PREDNISONE 10 MG TABS 2 daily for 5 days then 1 daily for 5 days PREDNISONE 24704530261 Active Suzan Boo APRN Active CLONAZEPAM 1 MG ORAL TABS 1 twice a day and an additional 1 tablet every other day as needed for pseudoseizures or anxiety CLONAZEPAM 27641353250 Active Ahmet Carbajal MD Active HYDROCODONE-ACETAMINOPHEN 5-325 MG ORAL TABS 1 tab two times a day HYDROCODONE-ACETAMINOPHEN 64481375424 No Longer Active Ahmet Carbajal MD Active LAMICTAL 100 MG ORAL TABS 1 tab 2 times qd. LAMOTRIGINE 04483941483 Active Ahmet Carbajal MD Active PREDNISONE 20 MG TABS 2 daily for 5 days then 1 daily for 5 days PREDNISONE 14589089770 No Longer Active Ahmet Carbajal MD Active FLUTICASONE PROPIONATE 50 MCG/ACT SUSP 1 to 2 sprays each nostril daily for allergies FLUTICASONE PROPIONATE 82886720324 Active Tila Nicolas Active BENADRYL 25 MG CAP 4 po at bedtime for insomnia DIPHENHYDRAMINE HCL 99940202827 No Longer Active Ahmet Carbajal MD Active ADVAIR DISKUS 250-50 MCG/DOSE INH AEPB 1 puff twice a day for asthma FLUTICASONE-SALMETEROL 14314810825 No Longer Active Ahmet Carbajal MD Active KLONOPIN 1 MG ORAL TABS 1 tab po TID CLONAZEPAM 12892666156 No Longer Active Ahmet Carbajal MD Active ABILIFY MAINTENA 400 MG IM SUSR 400mg injection every 26 days ARIPIPRAZOLE 74958653967 No Longer Active Ahmet Carbajal MD Active TRAMADOL HCL 50 MG TABS 1/2-1 tab TID PRN TRAMADOL HCL 94187971066 No Longer Active Ahmet Carbajal MD Active BACTRIM DS 800-160 MG TABS 1 twice a day SULFAMETHOXAZOLE- TRIMETHOPRIM 06002751419 No Longer Active Ahmet Carbajal MD Active PROAIR HFA 108 (90 BASE) MCG/ACT AERS 2 puffs four times a day as needed 2015 ALBUTEROL SULFATE 49816125614 Active Ahmet Carbajal MD Active EQ NICOTINE 21 MG/24HR TRANS PT24 Apply daily to stop smoking NICOTINE 69857444493 Active Ahmet Carbajal MD Active MONISTAT 7 COMBO PACK WOODROW 100 & 2 MG-% (9GM) VAG KIT 1 applicatorful per vagina q pm x 7 MICONAZOLE NITRATE 14022657230 No Longer Active Ahmet Carbajal MD Active FLAGYL 500 MG TAB 1 tablet by mouth bid METRONIDAZOLE 60299755925 No Longer Active Ahmet Carbajal MD Active OXYCODONE HCL ER 10 MG ORAL T12A 1/2 tab by mouth every 4 hours prn OXYCODONE HCL 49068002735 No Longer Active Ahmet Carbajal MD Active METHYLPREDNISOLONE 4 MG ORAL TABS po daily METHYLPREDNISOLONE 09845587960 No Longer Active Ahmet Carbajal MD Active LEVOFLOXACIN 500 MG ORAL TABS po daily LEVOFLOXACIN 76274172386 No Longer Active Ahmet Carbajal MD Active VIIBRYD 10 MG ORAL TABS Take 1 tablet once a day VILAZODONE HCL 12351355413 No Longer Active Ahmet Carbajal MD Active TOPAMAX 50 MG ORAL TABS 1 tab twice daily TOPIRAMATE 43229173124 No Longer Active Ahmet Carbajal MD Active DICLOFENAC SODIUM 50 MG TBEC 1 tablet by mouth four times daily PRN Pain 2015 DICLOFENAC SODIUM 05508790178 No Longer Active Ahmet Carbajal MD Active ADZENYS XR-ODT 6.3 MG ORAL TBED 1 tab po daily for ADHD AMPHETAMINE 69749715652 No Longer Active Ahmet Carbajal MD Active CHANTIX 1 MG TABS 1 twice a day to help quit smoking VARENICLINE TARTRATE 50065522513 No Longer Active Dipika Burgos MD Active CHANTIX STARTING MONTH EARNEST 0.5 MG X 11 & 1 MG X 42 TABS take as directed 2015 VARENICLINE TARTRATE 64295312734 No Longer Active Dipika Burgos MD Active TESSALON PERLES 100 MG CAP 1 to 2 tablets by mouth 3 times daily as needed for cough BENZONATATE 61320128727 No Longer Active Luigi Martínez APRN Active IMITREX 50 MG ORAL TABS 0.5 po x 1 PRN Headache. May repeat dose x 1 in 2 hours if needed SUMATRIPTAN SUCCINATE 26752294319 Active Ahmet Carbajal MD Active HYDROCODONE-ACETAMINOPHEN 5-325 MG TABS 1 to 2 four times a day as needed for pain use until can be seen by specialist HYDROCODONE- ACETAMINOPHEN 44245801662 No Longer Active Vishal Hui MD Active PROAIR HFA 108 (90 BASE) MCG/ACT AERS 2 puffs four times a day as needed 2015 ALBUTEROL SULFATE 51738854621 No Longer Active Vishal Hui MD Active PREDNISONE 20 MG TABS 2 daily for 5 days then 1 daily for 5 days PREDNISONE 92347811258 No Longer Active Vishal Hui MD Active ZITHROMAX Z-EARNEST 250 MG TABS 2 today and then 1 daily for 4 days AZITHROMYCIN 83099034817 No Longer Active Vishal Hui MD Active DICLOFENAC POTASSIUM TABS Take 1 tablet twice a day (pt. is not sure of the dose.) DICLOFENAC POTASSIUM TABS 14595270855 No Longer Active Vishal Hui MD Active VERAPAMIL HCL ER 120 MG ORAL CR-TABS Take 1 tablet by mouth twice a day. VERAPAMIL HCL 80181059062 Active Vishal Hui MD Active FLAGYL 500 MG TAB 1 tablet by mouth bid METRONIDAZOLE 37259150480 No Longer Active Vishal Hui MD Active VALIUM 5 MG TAB Take 1-2 tablets daily DIAZEPAM 64751536203 No Longer Active Fabiola Johnson APRN Active METOPROLOL TARTRATE 25 MG ORAL TABS 1/2 tablet twice daily for heart rate and blood pressure METOPROLOL TARTRATE 62559440768 No Longer Active Fabiola Johnson APRN Active MIRALAX ORAL POWD 17GMS DAILY IN WATER POLYETHYLENE GLYCOL 3350 74189304610 Active TAMARA Casey Active MIRALAX PACK 1 po qd PRN Constipation POLYETHYLENE GLYCOL 3350 12211765361 No Longer Active Ahmet Carbajal MD Active MINIPRESS 2 MG CAPS 4 cap po at night PRAZOSIN HCL 21297515251 No Longer Active Ahmet Carbajal MD Active PIROXICAM 20 MG CAPS 1 cap po qd PRN Pain PIROXICAM 85887275222 No Longer Active Ahmet Carbajal MD Active TRAMADOL HCL 50 MG TABS 1-2 po TID PRN Pain TRAMADOL HCL 59280772837 No Longer Active Ahmet Carbajal MD Active METOPROLOL TARTRATE 50 MG TAB 1 po bid METOPROLOL TARTRATE 82096265576 No Longer Active Ahmet Carbajal MD Active ABILIFY 15 MG ORAL TABS 1 tab daily ARIPIPRAZOLE 22846080236 No Longer Active Ahmet Carbajal MD Active PROZAC 20 MG ORAL CAPS 1 tab daily FLUOXETINE HCL 00687014887 No Longer Active Ahmet Carbajal MD Active AMBIEN 5 MG ORAL TABS 1 tab at bedtime ZOLPIDEM TARTRATE 87169510634 No Longer Active Ahmet Carbajal MD Active PREDNISONE 20 MG TAB 2 tabs daily for 4 days, 1 tab daily for 4 days, 1/2 tab daily for 4 days PREDNISONE 18128272209 No Longer Active Ahmet Carbajal MD Active KEFLEX 500 MG CAP 1 po TID x 10 days CEPHALEXIN 67714654210 No Longer Active Vishal Hui MD Active SAPHRIS 5 MG SUBL 1 po bid ASENAPINE MALEATE 45464099081 No Longer Active Jillina Frazell TREE MARKER Active LATUDA 80 MG TABS Take one by mouth daily LURASIDONE HCL 64814179395 No Longer Active Jillina Frazell TREE MARKER Active AMLODIPINE BESYLATE 5 MG TABS 1 tablet by mouth daily AMLODIPINE BESYLATE 49971986890 No Longer Active Jillina Frazell TREE MARKER Active AMITRIPTYLINE HCL 100 MG TAB one at hs AMITRIPTYLINE HCL 80493689802 No Longer Active Vishal Hui MD Active TRAZODONE HCL 100 MG TAB take 1 at bedtime TRAZODONE HCL 65482250867 No Longer Active Vishal Hui MD Active VYVANSE 40 MG CAPS 1 daily, LISDEXAMFETAMINE DIMESYLATE 18219671840 No Longer Active Vishal Hui MD Active IBUPROFEN 600 MG TAB 1 po TID PRN IBUPROFEN 58482829747 No Longer Active Vishal Hui MD Active PROZAC 20 MG CAP Take one by mouth daily FLUOXETINE HCL 77295081357 No Longer Active Vishal Hui MD Active BACTRIM DS 800-160 MG TABS 1 pill by mouth twice daily SULFAMETHOXAZOLE-TRIMETHOPRIM 51654013985 No Longer Active Sahara Rodriguez MD PhD Active DIFLUCAN 150 MG TAB 1 tablet by mouth daily FLUCONAZOLE 41078591211 No Longer Active Vishal Hui MD Active TIZANIDINE HCL 4 MG TABS 1 po q6hr PRN Muscle Spasm/Back Pain TIZANIDINE HCL 70430954947 Active Vishal Hui MD Active CLINDAMYCIN HCL 150 MG CAPS 1 four times a day CLINDAMYCIN HCL 41038200317 No Longer Active Neeraj Collins MD Active KEFLEX 500 MG ORAL CAPS 1 cap QID by mouth CEPHALEXIN 87104882376 No Longer Active Neeraj Collins MD Active DIFLUCAN 150 MG TABS 1 pill every other day x 2 doses FLUCONAZOLE 87883111936 No Longer Active Sahara Rodriguez MD PhD Active MELATONIN 3 MG CAPS 2 po q hs MELATONIN 65238130967 No Longer Active Sahara Rodriguez MD PhD Active MULTIVITAMINS CAPS Take one by mouth daily MULTIPLE VITAMIN 83332891837 No Longer Active Sahara Rodriguez MD PhD Active BACTRIM DS 800-160 MG TAB 1 tab by mouth twice daily TRIMETHOPRIM-SULFAMETHOXAZOLE 08198690804 No Longer Active Sahara Rodriguez MD PhD Active [facility] PROBIOTIC ORAL CHEW 2 daily po PROBIOTIC PRODUCT 43338775972 No Longer Active Sahara Rodriguez MD PhD Active BACTRIM DS 800-160 MG TABS 1 po BID x 7 days SULFAMETHOXAZOLE-TRIMETHOPRIM 16372737923 No Longer Active Vishal Hui MD Active CHANTIX STARTING MONTH EARNEST 0.5 MG X 11 & 1 MG X 42 TABS 0.5mg daily for 3 days , then 0.5mg BID for 4 days, then 1mg BID VARENICLINE TARTRATE 37951981748 No Longer Active TAMARA Gray Active VERAPAMIL HCL CR 120 MG TAB CR 1 po bid VERAPAMIL HCL 84789276658 No Longer Active Vishal Hui MD Active METOPROLOL SUCCINATE 50 MG TB24 1 tablet by mouth daily METOPROLOL SUCCINATE 46280745184 No Longer Active Vishal Hui MD Active SAPHRIS 10 MG SUBL 1 tab po bid ASENAPINE MALEATE 87598831598 No Longer Active Vishal Hui MD Active LISINOPRIL 20 MG TABS 1 tab po qd LISINOPRIL 06957839438 No Longer Active iVshal Hui MD Active LATUDA 20 MG TABS Take one by mouth daily LURASIDONE HCL 37254794395 No Longer Active Vishal Hui MD Active TRAZODONE HCL 50 MG TABS 1/2 tab po qd prn for anxiety TRAZODONE HCL 66224615646 No Longer Active Vishal Hui MD Active OMEPRAZOLE 20 MG TBEC 1 po q a.m. 30min prior to first food intake OMEPRAZOLE 55141622563 Active TAMARA Casey Active RANITIDINE HCL 150 MG CAPS 1 twice a day RANITIDINE HCL 56092610064 Active Luigi Martínez APRN Active LINZESS 290 MCG CAPS Take one by mouth daily LINACLOTIDE 26013869150 No Longer Active Vishal Hui MD Active SAPHRIS 5 MG SUBL 1 tab po qd ASENAPINE MALEATE 36590746284 No Longer Active Vishal Hui MD Active ZALEPLON 10 MG CAPS 1 cap po every other night ZALEPLON 88892005739 No Longer Active Vishal Hui MD Active LYRICA 50 MG CAPS 1 tab po TID PREGABALIN 91362067291 No Longer Active Vishal Hui MD Active LORATADINE 10 MG TABS 1 tab po qd LORATADINE 91027507463 No Longer Active Vishal Hui MD Active VERAPAMIL HCL ER 180 MG CR-TABS 1 tab po bid VERAPAMIL HCL 60840861951 No Longer Active Vishal Hui MD Active MIRALAX POWD 1 capfull once daily POLYETHYLENE GLYCOL 3350 76435367813 No Longer Active Vishal Hui MD Active PREDNISONE 20 MG TABS 1 tab po qd PREDNISONE 31608833974 No Longer Active Renzo Thornton DO Active LEVOFLOXACIN 500 MG TABS 1 tab po qd LEVOFLOXACIN 83242631355 No Longer Active Renzo Thornton DO Active BUSPIRONE HCL 15 MG TABS 1 tab po TID BUSPIRONE HCL 44524683968 No Longer Active Renzo Thornton DO Active BENZTROPINE MESYLATE 1 MG TABS 1 tab po qd BENZTROPINE MESYLATE 77806481405 No Longer Active Renzo Thornton DO Active ATENOLOL 25 MG TABS 1 tab po qd ATENOLOL 99632706229 No Longer Active Renzo Thornton DO Active ESCITALOPRAM OXALATE 20 MG TABS 1 tab po qd ESCITALOPRAM OXALATE 33402247087 No Longer Active Renzo Thornton DO Active ADVAIR DISKUS 250-50 MCG/DOSE AEPB 1 puff BID FLUTICASONE-SALMETEROL 00558122619 No Longer Active Renzo Thornton DO Active PREDNISONE 20 MG TAB 2 tabs daily for 3 days, 1 tab daily for 3 days, 1/2 tab daily for 2 days PREDNISONE 14041914153 No Longer Active Vishal Hui MD Active CEFDINIR 300 MG CAPS by mouth twice a day CEFDINIR 81340840088 No Longer Active Vishal Hui MD Active LANSOPRAZOLE 30 MG CPDR 1 cap po qd LANSOPRAZOLE 53347222756 No Longer Active Visahl Hui MD Active BACLOFEN 20 MG TABS 1 tab po tid BACLOFEN 29187425278 No Longer Active Vishal Hui MD Active ADVAIR DISKUS 250-50 MCG/DOSE AEPB 1 puff BID ADVAIR DISKUS 250-50 MCG/DOSE AEPB FLUTICASONE-SALMETEROL Inactive ESCITALOPRAM OXALATE 20 MG TABS 1 tab po qd ESCITALOPRAM OXALATE 20 MG TABS 871697 ESCITALOPRAM OXALATE Inactive ATENOLOL 25 MG TABS 1 tab po qd ATENOLOL 25 MG TABS 893535 ATENOLOL Inactive BENZTROPINE MESYLATE 1 MG TABS 1 tab po qd BENZTROPINE MESYLATE 1 MG TABS 937207 BENZTROPINE MESYLATE Inactive BUSPIRONE HCL 15 MG TABS 1 tab po TID BUSPIRONE HCL 15 MG TABS 473730 BUSPIRONE HCL Inactive LEVOFLOXACIN 500 MG TABS 1 tab po qd LEVOFLOXACIN 500 MG TABS 474187 LEVOFLOXACIN Inactive PREDNISONE 20 MG TABS 1 tab po qd PREDNISONE 20 MG TABS 400197 PREDNISONE Inactive MIRALAX POWD 1 capfull once daily MIRALAX POWD 834646 POLYETHYLENE GLYCOL 3350 Inactive VERAPAMIL HCL ER 180 MG CR-TABS 1 tab po bid VERAPAMIL HCL ER 180 MG CR-TABS VERAPAMIL HCL Inactive LORATADINE 10 MG TABS 1 tab po qd LORATADINE 10 MG TABS 280377 LORATADINE Inactive LYRICA 50 MG CAPS 1 tab po TID LYRICA 50 MG CAPS PREGABALIN Inactive ZALEPLON 10 MG CAPS 1 cap po every other night ZALEPLON 10 MG CAPS 523728 ZALEPLON Inactive SAPHRIS 5 MG SUBL 1 tab po qd SAPHRIS 5 MG SUBL ASENAPINE MALEATE Inactive TRAZODONE HCL 50 MG TABS 1/2 tab po qd prn for anxiety TRAZODONE HCL 50 MG TABS 434729 TRAZODONE HCL Inactive LATUDA 20 MG TABS Take one by mouth daily LATUDA 20 MG TABS LURASIDONE HCL Inactive LISINOPRIL 20 MG TABS 1 tab po qd LISINOPRIL 20 MG TABS 162511 LISINOPRIL Inactive SAPHRIS 10 MG SUBL 1 [...] twice daily BACTRIM DS 800-160 MG TAB 624592 TRIMETHOPRIM-SULFAMETHOXAZOLE Inactive MULTIVITAMINS CAPS Take one by mouth daily MULTIVITAMINS CAPS MULTIPLE VITAMIN Inactive MELATONIN 3 MG CAPS 2 po q hs MELATONIN 3 MG CAPS 502172 MELATONIN Inactive KEFLEX 500 MG ORAL CAPS 1 cap QID by mouth KEFLEX 500 MG ORAL CAPS 178401 CEPHALEXIN Inactive CLINDAMYCIN HCL 150 MG CAPS 1 four times a day CLINDAMYCIN HCL 150 MG CAPS 19740326 CLINDAMYCIN HCL Inactive DIFLUCAN 150 MG TAB 1 tablet by mouth daily DIFLUCAN 150 MG TAB 552556 FLUCONAZOLE Inactive PROZAC 20 MG CAP Take one by mouth daily PROZAC 20 MG CAP 243752 FLUOXETINE HCL Inactive IBUPROFEN 600 MG TAB 1 po TID PRN IBUPROFEN 600 MG TAB 033353 IBUPROFEN Inactive VYVANSE 40 MG CAPS 1 daily, VYVANSE 40 MG CAPS LISDEXAMFETAMINE DIMESYLATE Inactive TRAZODONE HCL 100 MG TAB take 1 at bedtime TRAZODONE HCL 100 MG TAB 429566 TRAZODONE HCL Inactive AMITRIPTYLINE HCL 100 MG TAB one at hs AMITRIPTYLINE HCL 100 MG TAB 350703 AMITRIPTYLINE HCL Inactive AMLODIPINE BESYLATE 5 MG TABS 1 tablet by mouth daily AMLODIPINE BESYLATE 5 MG TABS 335689 AMLODIPINE BESYLATE Inactive LATUDA 80 MG TABS Take one by mouth daily LATUDA 80 MG TABS LURASIDONE HCL Inactive SAPHRIS 5 MG SUBL 1 po bid SAPHRIS 5 MG SUBL ASENAPINE MALEATE Inactive PREDNISONE 20 MG TAB 2 tabs daily for 4 days, 1 tab daily for 4 days, 1/2 tab daily for 4 days PREDNISONE 20 MG TAB 730287 PREDNISONE Inactive AMBIEN 5 MG ORAL TABS 1 tab at bedtime AMBIEN 5 MG ORAL TABS 160608 ZOLPIDEM TARTRATE Inactive PROZAC 20 MG ORAL CAPS 1 tab daily PROZAC 20 MG ORAL CAPS 818085 FLUOXETINE HCL Inactive ABILIFY 15 MG ORAL TABS 1 tab daily ABILIFY 15 MG ORAL TABS 022342 ARIPIPRAZOLE Inactive METOPROLOL TARTRATE 50 MG TAB 1 po bid METOPROLOL TARTRATE 50 MG TAB 771545 METOPROLOL TARTRATE Inactive TRAMADOL HCL 50 MG TABS 1-2 po TID PRN Pain TRAMADOL HCL 50 MG TABS 446566 TRAMADOL HCL Inactive PIROXICAM 20 MG CAPS 1 cap po qd PRN Pain PIROXICAM 20 MG CAPS 303428 PIROXICAM Inactive MINIPRESS 2 MG CAPS 4 cap po at night MINIPRESS 2 MG CAPS 662670 PRAZOSIN HCL Inactive MIRALAX PACK 1 po qd PRN Constipation MIRALAX PACK 114685 POLYETHYLENE GLYCOL 3350 Inactive METOPROLOL TARTRATE 25 MG ORAL TABS 1/2 tablet twice daily for heart rate and blood pressure METOPROLOL TARTRATE 25 MG ORAL TABS 263712 METOPROLOL TARTRATE Inactive VALIUM 5 MG TAB Take 1-2 tablets daily VALIUM 5 MG TAB 915187 DIAZEPAM Inactive FLAGYL 500 MG TAB 1 tablet by mouth bid FLAGYL 500 MG TAB 940888 METRONIDAZOLE Inactive DICLOFENAC POTASSIUM TABS Take 1 tablet twice a day (pt. is not sure of the dose.) DICLOFENAC POTASSIUM TABS DICLOFENAC POTASSIUM TABS Inactive ZITHROMAX Z-EARNEST 250 MG TABS 2 today and then 1 daily for 4 days ZITHROMAX Z-EARNEST 250 MG TABS 7824500 AZITHROMYCIN Inactive PREDNISONE 20 MG TABS 2 daily for 5 days then 1 daily for 5 days PREDNISONE 20 MG TABS 034323 PREDNISONE Inactive PROAIR HFA 108 (90 BASE) MCG/ACT AERS 2 puffs four times a day as needed 2015 PROAIR HFA 108 (90 BASE) MCG/ACT AERS ALBUTEROL SULFATE Inactive HYDROCODONE-ACETAMINOPHEN 5-325 MG TABS 1 to 2 four times a day as needed for pain use until can be seen by specialist HYDROCODONE- ACETAMINOPHEN 5-325 MG TABS 142434 HYDROCODONE-ACETAMINOPHEN Inactive TESSALON PERLES 100 MG CAP 1 to 2 tablets by mouth 3 times daily as needed for cough TESSALON PERLES 100 MG CAP 162334 BENZONATATE Inactive CHANTIX STARTING MONTH EARNEST 0.5 [...] Pain 2015 DICLOFENAC SODIUM 50 MG TBEC 589109 DICLOFENAC SODIUM Inactive TOPAMAX 50 MG ORAL TABS 1 tab twice daily TOPAMAX 50 MG ORAL TABS 805922 TOPIRAMATE Inactive VIIBRYD 10 MG ORAL TABS Take 1 tablet once a day VIIBRYD 10 MG ORAL TABS VILAZODONE HCL Inactive LEVOFLOXACIN 500 MG ORAL TABS po daily LEVOFLOXACIN 500 MG ORAL TABS 353937 LEVOFLOXACIN Inactive METHYLPREDNISOLONE 4 MG ORAL TABS po daily METHYLPREDNISOLONE 4 MG ORAL TABS 277685 METHYLPREDNISOLONE Inactive OXYCODONE HCL ER 10 MG ORAL T12A 1/2 tab by mouth every 4 hours prn OXYCODONE HCL ER 10 MG ORAL T12A OXYCODONE HCL Inactive FLAGYL 500 MG TAB 1 tablet by mouth bid FLAGYL 500 MG TAB 480831 METRONIDAZOLE Inactive MONISTAT 7 COMBO PACK WOODROW 100 & 2 MG-% (9GM) VAG KIT 1 applicatorful per vagina q pm x 7 MONISTAT 7 COMBO PACK WOODROW 100 & 2 MG-% (9GM) VAG KIT MICONAZOLE NITRATE Inactive BACTRIM DS 800-160 MG TABS 1 twice a day BACTRIM DS 800-160 MG TABS 120351 SULFAMETHOXAZOLE-TRIMETHOPRIM Inactive TRAMADOL HCL 50 MG TABS 1/2-1 tab TID PRN TRAMADOL HCL 50 MG TABS 245505 TRAMADOL HCL Inactive ABILIFY MAINTENA 400 MG IM SUSR 400mg injection every 26 days ABILIFY MAINTENA 400 MG IM SUSR ARIPIPRAZOLE Inactive KLONOPIN 1 MG ORAL TABS 1 tab po TID KLONOPIN 1 MG ORAL TABS 181165 CLONAZEPAM Inactive ADVAIR DISKUS 250-50 MCG/DOSE INH AEPB 1 puff twice a day for asthma ADVAIR DISKUS 250-50 MCG/DOSE INH AEPB FLUTICASONE- SALMETEROL Inactive BENADRYL 25 MG CAP 4 po at bedtime for insomnia BENADRYL 25 MG CAP DIPHENHYDRAMINE HCL Inactive PREDNISONE 20 MG TABS 2 daily for 5 days then 1 daily for 5 days PREDNISONE 20 MG TABS 336277 PREDNISONE Inactive HYDROCODONE-ACETAMINOPHEN 5-325 MG ORAL TABS 1 tab two times a day HYDROCODONE-ACETAMINOPHEN 5-325 MG ORAL TABS 994641 HYDROCODONE-ACETAMINOPHEN Inactive ZITHROMAX Z-EARNEST 250 MG TABS 2 today and then 1 daily for 4 days ZITHROMAX Z-EARNEST 250 MG TABS 3824037 AZITHROMYCIN Inactive GUAIFENESIN-CODEINE 100-10 MG/5ML SYRP 5ml every 4 to 6 hours as needed for cough GUAIFENESIN-CODEINE 100-10 MG/5ML SYRP 778163 GUAIFENESIN-CODEINE Inactive HALOPERIDOL 10 MG ORAL TABS 1 tab q.d HALOPERIDOL 10 MG ORAL TABS 358043 HALOPERIDOL Inactive ASPIRIN 325 MG ORAL TABS 1 tab q.d ASPIRIN 325 MG ORAL TABS 990783 ASPIRIN Inactive FLUTICASONE PROPIONATE 50 MCG/ACT SUSP 2 sprays each nostril daily before bed. FLUTICASONE PROPIONATE 50 MCG/ACT SUSP 5429799 FLUTICASONE PROPIONATE Inactive ZOFRAN 4 MG TABS 1 po q6hr PRN Nausea ZOFRAN 4 MG TABS 239769 ONDANSETRON HCL Inactive CEFDINIR 300 MG CAPS by mouth twice a day CEFDINIR 300 MG CAPS 509558 CEFDINIR Inactive PREDNISONE 20 MG TAB 2 tabs daily for 3 days, 1 tab daily for 3 days, 1/2 tab daily for 2 days PREDNISONE 20 MG TAB 376117 PREDNISONE Inactive BACTRIM DS 800-160 MG TABS 1 po BID x 7 days BACTRIM DS 800-160 MG TABS 19820521 SULFAMETHOXAZOLE-TRIMETHOPRIM Inactive DIFLUCAN 150 MG TABS 1 pill every other day x 2 doses DIFLUCAN 150 MG TABS 257794 FLUCONAZOLE Inactive BACTRIM DS 800-160 MG TABS 1 pill by mouth twice daily BACTRIM DS 800-160 MG TABS 19820521 SULFAMETHOXAZOLE-TRIMETHOPRIM Inactive KEFLEX 500 MG CAP 1 po TID x 10 days KEFLEX 500 MG CAP 697262 CEPHALEXIN Inactive Advance Directives Directive Description Start [...] % 11.0-15.0 platelet count 443 THOUSAND/UL 10*3/mm3 727-990 8469/03/01 mean platelet volume 8.2 fL 7.5-12.5 Lab [...] 369 10^3/MM^3 10*3/mm3 142-424 Lab Report: Chlamydia/GC APTIMA/60700 - Lab chlamydia DNA probe NOT DETECTED NOT DETECTED Lab Report: Chlamydia/GC [facility]/37565 - Microbiology Neisseria gonorrhoeae DNA probe NOT DETECTED NOT DETECTED Lab Report: Chlamydia/GC [facility]TIM[facility]/55430, Urinalysis, Complete, with Reflex ... - Lab chlamydia DNA probe NOT DETECTED NOT DETECTED Lab Report: Chlamydia/GC [facility]/94545, Urinalysis, Complete, with Reflex ... - Microbiology Neisseria gonorrhoeae DNA probe NOT DETECTED NOT DETECTED Lab Report: Chlamydia/GC [facility]/09068, Urinalysis, Complete, with Reflex ... - Urinalysis microalbumin/total urine volume 2 mg/L Units converted. See lab report for original value. microalbumin/creatinine ratio, urine 9 MCG/MG CREAT mg/L <30 Lab Report: Comp. Metabolic Panel - Chemistry sodium, serum 142 mmol/L 697-559 4295/06/08 carbon dioxide, venous blood 27.6 mmol/L 21.0-32.0 potassium, serum 4.0 mmol/L 3.5-5.2 chloride, serum 105 mmol/L 98-107 blood glucose 95 mg/dL 65-110 urea nitrogen, blood 8 mg/dL 7-18 creatinine, serum 0.75 mg/dL 0.55-1.30 alanine aminotransferase (SGPT), serum 49 U/L - aspartate aminotransferase (SGOT), serum 28 U/L 15-37 calcium, serum 9.4 mg/dL 8.5-10.1 bilirubin, serum, total 0.30 mg/dL 0.00-1.00 sodium, serum 140 mmol/L 276-432 9401/08/08 carbon dioxide, venous blood 33.7 mmol/L 21.0-32.0 [...] mg/dL Encounters Code Encounter Date Provider Facility CPT-21554 Level 3 Est. Patient 11:04:38 CDT Renzo W Nor[facility]to [facility] CPT-32091 Level 3 Est. Patient 11:15:58 ADMINISTRATIVE FELLOW Renzo Barajas [facility] CPT-52790 Level 3 Est. Patient 15:28:23 ADMINISTRATIVE FELLOW Suzan Boo [facility] CPT-21955 Level 4 Est. Patient 10:20:54 ADMINISTRATIVE FELLOW Suzan Boo [facility] CPT-17547 Level 3 Est. Patient 11:47:37 ADMINISTRATIVE FELLOW Ahmet Carbajal MD [facility]-08835 Level 3 Est. Patient 10:40:11 ADMINISTRATIVE FELLOW Ahmet Carbajal MD [facility] CPT-31911 Level 3 Est. Patient 15:07:06 ADMINISTRATIVE FELLOW Neeraj Collins MD [facility] CPT-19420 Level 4 Est. Patient 14:45:00 ADMINISTRATIVE FELLOW Ahmet Carbajal MD [facility] CPT-15800 Level 3 Est. Patient 13:59:59 CDT Luigi Martínez [facility] CPT-69605 Level 3 Est. Patient 18:18:53 CDT Neeraj Collins MD [facility]-81360 Level 3 Est. Patient 15:50:44 CDT Vishal Hui MD [facility] CPT-90088 Level 3 Est. Patient 11:36:17 CDT Ahmet Carbajal MD [facility] CPT-11402 Level 3 Est. Patient 13:29:16 CDT Vishal Hui MD [facility] CPT-71784 Level 3 Est. Patient 14:27:52 CDT Neeraj Collins MD [facility] CPT-21973 Level 3 Est. Patient 08:56:03 CDT Luigi Martínez [facility] CPT-76885 Level 4 Est. Patient 12:11:48 CDT Fabiola Johnson [facility] CPT-38034 Level 3 New Patient 16:53:37 CDT Albert Caldera MD [facility] CPT-01546 Level 3 Est. Patient 11:25:49 CDT Renzo Thornton [facility] CPT-44964 Level 3 Est. Patient 15:22:01 CDT Ahmet Carbajal MD [facility] CPT-83510 Level 4 Est. Patient 09:00:51 ADMINISTRATIVE FELLOW Vishal Hui MD [facility] CPT-70302 Level 3 Est. Patient 11:37:33 ADMINISTRATIVE FELLOW Vishal Hui [facility] CPT-45985 Level 3 Est. Patient 08:41:09 ADMINISTRATIVE FELLOW Vishal Hui MD [facility] CPT-01833 Level 4 Est. Patient 10:19:35 ADMINISTRATIVE FELLOW Vishal Hui MD [facility] CPT-34646 Level 3 Est. Patient 13:35:45 CDT Vishal Hui MD [facility] CPT-40767 Level 4 Est. Patient 10:08:37 CDT Vishal Hui MD [facility] CPT-64361 Level 3 Est. Patient 11:22:10 CDT Vishal Hui MD [facility] CPT-96253 Level 3 Est. Patient 11:03:32 CDT Sahara Rodriguez MD, PhD [facility] CPT-87395 Level 3 Est. Patient 09:41:35 CDT Vishal Hui MD [facility] CPT-61176 Level 3 Est. Patient 12:00:41 CDT Neeraj Collins MD [facility] CPT-72140 Level 3 Est. Patient 09:16:24 CDT Vishal Hui MD [facility] CPT-10416 Level 4 Est. Patient 13:59:09 CDT Neeraj Collins MD [facility] CPT-12606 Level 3 Est. Patient 15:19:[address] [facility] CPT-16056 Level 3 Est. Patient 18:10:26 CDT Sahara Rodriguez MD [facility] CPT-96048 Level 3 Est. Patient 14:49:50 CDT Vishal Hui MD [facility] CPT-46376 Level 4 Est. Patient 18:41:46 CDT Neeraj Collins MD [facility] CPT-56848 Level 4 Est. Patient 09:18:38 ADMINISTRATIVE FELLOW Vishal Hui MD [facility] CPT-44515 Level 3 Est. Patient 14:43:55 ADMINISTRATIVE FELLOW Vishal Hui MD [facility] CPT-05520 Level 3 Est. Patient 15:26:33 ADMINISTRATIVE FELLOW Sahara Rodriguez MD PhD [facility] CPT-64125 Level 3 Est. Patient 10:32:14 ADMINISTRATIVE FELLOW Vishal Hui MD [facility] CPT-41682 Level 3 Est. Patient 15:12:52 ADMINISTRATIVE FELLOW Vishal Hui MD [facility] CPT-76161 Level 4 Est. Patient 09:19:27 CDT Vishal Hui MD [facility] CPT-23891 Level 3 Est. Patient 15:53:[address] [facility] CPT-92888 Level 3 Est. Patient 15:50:[address] [facility] CPT-48825 Level 3 Est. Patient 16:55:24 CDT Vishal Hui MD [facility] Procedures Code Procedure Name Date Entry Date Standard Description CPT-55193 Smoking Cessation counseling 11:15:58 ADMINISTRATIVE FELLOW CPT-G0439 [facility] Annual Wellness Exam 09:30:58 ADMINISTRATIVE FELLOW CPT-22643 TSH - LAB USE ONLY 08:50:26 ADMINISTRATIVE FELLOW CPT-26127 CBC - LAB USE ONLY 08:50:26 ADMINISTRATIVE FELLOW CPT-80490 Venipuncture Draw Fee 08:50:26 ADMINISTRATIVE FELLOW CPT-87807 Abx/Therapy Injection 17:34:30 ADMINISTRATIVE FELLOW CPT-51388 Nexplanon Removal with Reinsertion 14:09:32 CDT CPT-J7307 Nexplanon (Implant) 14:09:32 CDT CPT-OV Office Visit 14:09:32 CDT CPT-04824 UA w micro - LAB USE ONLY 16:21:13 CDT CPT-55063 Wet Mount - LAB USE ONLY 16:21:13 CDT CPT-35217 First Vx - Ix admin for Medicare patients 14:37:47 CDT CPT-98834 Fluzone Preservative Free Intramuscular Suspension 14:37 :47 CDT CPT-84508 Abx/Therapy Injection 13:54:22 CDT CPT-61849 Abx/Therapy Injection 08:47:09 CDT CPT-12515 Abx/Therapy Injection 13:29:56 CDT CPT-12238 Abx/Therapy Injection 08:36:16 CDT CPT-33186 Wet Mount - LAB USE ONLY 17:44:58 CDT CPT-71030 UA w micro - LAB USE ONLY 17:44:58 CDT CPT-93962 CMP - LAB USE ONLY 17:44:58 CDT CPT-85573 Venipuncture Draw Fee 17:44:58 CDT CPT-96304 Cervical Min 4V - XRAY USE ONLY 09:01:40 CDT CPT-83406 Chest 2V Frontal and Lat - XRAY USE ONLY 11:06:31 CDT CPT-48236 EKG Trac and Interp - XRAY USE ONLY 11:31:43 CDT 08/26 CPT-J3420 Vitamin B12 1000mcg (Cyanocobalamin) 08:10:26 ADMINISTRATIVE FELLOW 04/12 CPT-52576 Abx/Therapy Injection 08:10:26 ADMINISTRATIVE FELLOW CPT-G0438 Initial Annual Wellness Exam 19:01:01 ADMINISTRATIVE FELLOW CPT-J3420 Vitamin B12 1000mcg (Cyanocobalamin) 16:57:46 CDT 08/14 CPT-59645 Recombivax HB Injection Suspension 5 MCG/0.5ML 08:37:50 ADMINISTRATIVE FELLOW CPT-95925 Immunization Single Admin 08:37:50 ADMINISTRATIVE FELLOW CPT-J3420 Vitamin B12 1000mcg (Cyanocobalamin) 08:32:16 ADMINISTRATIVE FELLOW 03/11 CPT-10109 Abx/Therapy Injection 08:32:16 ADMINISTRATIVE FELLOW CPT-53428 Chest 2V Frontal and Lat 11:46:38 ADMINISTRATIVE FELLOW CPT-94609 Venipuncture Draw Fee 09:12:45 ADMINISTRATIVE FELLOW CPT-J3420 Vitamin B12 1000mcg (Cyanocobalamin) 08:50:15 ADMINISTRATIVE FELLOW 02/08 CPT-24800 Abx/Therapy Injection 08:50:15 ADMINISTRATIVE FELLOW CPT-Cryo Cryotherapy 10:19:35 ADMINISTRATIVE FELLOW CPT-000 Give Appropriate Flu Vaccine 09:22:16 CDT CPT-J3420 Vitamin B12 1000mcg (Cyanocobalamin) 19:08:57 CDT 01/11 CPT-13037 Abx/Therapy Injection 19:08:57 CDT CPT-J3420 Vitamin B12 1000mcg (Cyanocobalamin) 08:19:08 CDT 12/11 CPT-44687 Abx/Therapy Injection 08:19:08 CDT CPT-J3420 Vitamin B12 1000mcg (Cyanocobalamin) 14:48:00 CDT 11/09 CPT-36895 Abx/Therapy Injection 14:47:59 CDT CPT-J3420 Vitamin B12 1000mcg (Cyanocobalamin) 08:34:04 CDT 10/09 CPT-11602 Abx/Therapy Injection 08:34:04 CDT CPT-J3420 Vitamin B12 1000mcg (Cyanocobalamin) 09:18:52 CDT 09/11 CPT-35675 Abx/Therapy Injection 09:18:52 CDT CPT-J3420 Vitamin B12 1000mcg (Cyanocobalamin) 08:35:44 CDT 09/04 CPT-37530 Abx/Therapy Injection 08:35:44 CDT CPT-38367 Immunization Single Admin 11:07:16 CDT CPT-71154 Hepatitis B adult IM 11:07:16 CDT CPT-J3420 Vitamin B12 1000mcg (Cyanocobalamin) 11:00:49 CDT 08/28 CPT-J1040 Depo Medrol 80 mg (Methyl Prednisolone Acetate) 11:00: 49 CDT CPT-29662 Abx/Therapy Injection 11:00:49 CDT CPT-J1040 Depo Medrol 80 mg (Methyl Prednisolone Acetate) 09:16: 23 CDT CPT-J3420 Vitamin B12 1000mcg (Cyanocobalamin) 08:27:05 CDT 08/20 CPT-15320 Abx/Therapy Injection 08:27:05 CDT CPT-23186 Recombivax HB Injection Suspension 5 MCG/0.5ML 10:00:41 CDT CPT-20415 Administration single or combination vaccine inc oral 10 :00:41 CDT CPT-69171 Sono transvag pelvis non OB uterus ovaries cervix 16:36: 57 CDT CPT-27275 LS spine comp w obliq 09:50:55 ADMINISTRATIVE FELLOW CPT-30966 Abd compl w upright 09:50:55 ADMINISTRATIVE FELLOW CPT-J1100 Decadron 4mg (Dexamethasone) 15:51:24 ADMINISTRATIVE FELLOW CPT-J1030 Depo Medrol 40 mg (Methyl Prednisolone Acetate) 15:51: 24 ADMINISTRATIVE FELLOW CPT-22917 Abx/Therapy Injection 15:51:24 ADMINISTRATIVE FELLOW CPT-J1100 Decadron 4mg (Dexamethasone) 15:26:33 ADMINISTRATIVE FELLOW CPT-J1030 Depo Medrol 40 mg (Methyl Prednisolone Acetate) 15:26: 33 ADMINISTRATIVE FELLOW CPT-58102 Sono retroperitoneal complete kidneys and bladder 17:15: 30 CDT CPT-53305 Abd compl w upright 16:09:25 CDT CPT-J1100 Decadron 8mg (Dexamethasone) 17:07:57 CDT CPT-27327 Abx/Therapy Injection 17:07:57 CDT CPT-J1100 Decadron 8mg (Dexamethasone) 16:55:24 CDT CPT-43070 Chest 2V Frontal and Lat 16:32:44 CDT
--- OUTSIDE RECORDS SUMMARY | 2016-11-04 14:29 | XMS REPORT | Clinical Summary ---
Author Author Admin, E Organization [employer] Address Unknown Phone Unavailable Allergies, Adverse Reactions, [...] sites Morbid obesity 278.01 Active Juliet Kimbrough SENIOR ACCOUNTANT CPA Morbid obesity 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 Active Juliet Kimbrough SENIOR ACCOUNTANT CPA Dependence on other enabling machines and devices Gait unsteady 781.2 Resolved Albert Cladera MD Abnormality of gait Lipoma 214.9 Resolved [...] Active Ahmet Carbajal MD Generalized anxiety disorder [place] Hammerer well woman exam V72.31 Resolved Suzan Boo [...] Boo APRN DYSURIA ICD-788.1 Inactive Suzan Boo SENIOR ACCOUNTANT CPA Cellulitis and abscess of breast ICD-611.0 Inactive Ahmet Carbajal MD Nondisplaced transverse fracture of shaft of left fibula, subsequent encounter for closed fracture with routine healing Inactive Suzan Boo SENIOR ACCOUNTANT CPA Bronchitis, acute ICD-466.0 Inactive Ahmet Carbajal MD Flat Hammerer well woman exam ICD-V72.31 Inactive Suzan Boo SENIOR ACCOUNTANT CPA Bronchitis, acute with mild bronchospasm ICD-466.0 Inactive Suzan Boo SENIOR ACCOUNTANT CPA Tracheitis ICD-464.10 Inactive Suzan Boo SENIOR ACCOUNTANT CPA Impetigo ICD-684 Inactive Suzan Boo SENIOR ACCOUNTANT CPA Furuncle of buttock ICD-680.5 Inactive Suzan Boo SENIOR ACCOUNTANT CPA Vaginal irritation ICD-623.9 Inactive Suzan Boo APRN Scalding pain on urination ICD-788.1 Inactive Suzan Boo APRN Abdominal pain, right upper quadrant ICD-789.01 Inactive Suzan Boo SENIOR ACCOUNTANT CPA Dark urine ICD-791.9 Inactive Suzan Boo APRN Preop exam ICD-V72.84 Inactive Suzan Boo APRN Medication List Medication Instructions Start Date Stop Date Generic Name NDC Status Provider Patient Instruction MUPIROCIN 2 % OINT apply twice a day MUPIROCIN 35058178591 Active Suzan Boo APRN Active BACTRIM DS 800-160 MG TABS 1 twice a day SULFAMETHOXAZOLE- TRIMETHOPRIM 26426005436 Active Suzan Boo APRN Active [id number] 50-325-40 MG TABS 1 to 2 four times a day as needed for headache [id number] 04242798078 Active Suzan Boo APRN Active METOCLOPRAMIDE HCL 10 MG TABS 1 two times as needed for nausea and headaches METOCLOPRAMIDE HCL 05244404625 Active Meena Ortiz MA Active NYSTATIN 212116 UNIT/GM CREA apply three times a day to yeast rash NYSTATIN 15833087351 Active Suzan Boo APRN Active AMITIZA 24 MCG ORAL CAPS one capsule twice daily LUBIPROSTONE 52320472231 Active Suzan Boo APRN Active MIRALAX ORAL POWD 17GMS DAILY IN WATER POLYETHYLENE GLYCOL 3350 06916953755 No Longer Active Suzan Boo APRN Active LACTULOSE 10 GM/15ML ORAL SOLN 30mL oral BID for IBS-C LACTULOSE 99499507844 No Longer Active Suzan Boo APRN Active BACTRIM DS 800-160 MG TAB Take one (1) tablet by mouth twice a day for 5 days TRIMETHOPRIM-SULFAMETHOXAZOLE 98619111941 No Longer Active Suzan Boo APRN Active MUPIROCIN 2 % OINT apply twice a day MUPIROCIN 77762456283 No Longer Active Suzan Boo APRN Active BACTRIM DS 800-160 MG TABS 1 twice a day SULFAMETHOXAZOLE-TRIMETHOPRIM 11895486594 No Longer Active Suzan Boo APRN Active DIFLUCAN 150 MG TABS 1 by mouth for yeast FLUCONAZOLE 29686775481 No Longer Active Suzan Boo APRN Active LINZESS 290 MCG ORAL CAPS 1 tab 30 min prior to first meal each day. LINACLOTIDE 12479632980 No Longer Active Sheila Calderon LPN Active AMITIZA 8 MCG ORAL CAPS 1 tab BID LUBIPROSTONE 36528718612 No Longer Active Lynda Juarezephraim APPLICATION DEFENSE MANAGER Active TESSALON PERLES 100 MG CAPS 1 three times a day as needed for cough BENZONATATE 36942379986 No Longer Active Suzan Boo APRN Active BACTRIM DS 800-160 MG TABS 1 twice a day SULFAMETHOXAZOLE-TRIMETHOPRIM 44619364272 No Longer Active Suzan Boo APRN Active DIFLUCAN 150 MG TABS 1 by mouth for yeast FLUCONAZOLE 05167044014 No Longer Active Suzan Boo APRN Active EQ NICOTINE 21 MG/24HR TRANS PT24 Apply daily to stop smoking NICOTINE 78981429965 No Longer Active Suzan Boo APRN Active PREDNISONE 10 MG TABS 2 daily for 5 days then 1 daily for 5 days PREDNISONE 22816829280 No Longer Active Suzan Boo APRN Active LEVAQUIN 500 MG TABS 1 daily for infection LEVOFLOXACIN 66877470976 No Longer Active Suzan Boo APRN Active TROPICAMIDE 0.5 % OPHTH SOLN 1 drop PRN eye spasms TROPICAMIDE 28889782230 No Longer Active Suzan Boo APRN Active PREDNISONE 20 MG TAB 1 tablet daily x 4 days PREDNISONE 93608970529 No Longer Active Suzan Boo APRN Active ACETAMINOPHEN-CODEINE 120-12 MG/5ML SOLN 5 ml by mouth every 4-6 hours if needed for cough ACETAMINOPHEN-CODEINE 24748828873 No Longer Active Suzan Boo APRN Active KEFLEX 500 MG CAP 1 po qid CEPHALEXIN 63436231406 No Longer Active Suzan Boo APRN Active FLOVENT HFA 110 MCG/ACT AERO 2 puffs inhaled b.i.d. FLUTICASONE PROPIONATE HFA 61476309516 Active Renzo Thornton DO Active RISPERDAL 4 MG ORAL TABS 1 tab at bedtime RISPERIDONE 07906567691 Active Samantha Rothman RMA Active ZOFRAN 4 MG TABS 1 po q6hr PRN Nausea ONDANSETRON HCL No Longer Active Suzan Boo APRN Active FLUTICASONE PROPIONATE 50 MCG/ACT SUSP 2 sprays each nostril daily before bed. FLUTICASONE PROPIONATE 32543744665 No Longer Active Suzan Boo APRN Active ASPIRIN 325 MG ORAL TABS 1 tab q.d ASPIRIN 34850832885 No Longer Active Suzan Boo APRN Active HALOPERIDOL 10 MG ORAL TABS 1 tab q.d HALOPERIDOL 52988124353 No Longer Active Suzan Boo APRN Active GUAIFENESIN-CODEINE 100-10 MG/5ML SYRP 5ml every 4 to 6 hours as needed for cough GUAIFENESIN-CODEINE 57914827210 No Longer Active Suzan Boo APRN Active ZITHROMAX Z-EARNEST 250 MG TABS 2 today and then 1 daily for 4 days AZITHROMYCIN 73005992607 No Longer Active Suzan Boo APRN Active CLONAZEPAM 1 MG ORAL TABS 1 twice a day and an additional 1 tablet every other day as needed for pseudoseizures or anxiety CLONAZEPAM 42235214670 Active Suzan Boo APRN Active HYDROCODONE-ACETAMINOPHEN 5-325 MG ORAL TABS 1 tab two times a day HYDROCODONE-ACETAMINOPHEN 55069463461 No Longer Active Ahmet Carbajal MD Active LAMICTAL 100 MG ORAL TABS 1 tab 2 times qd. LAMOTRIGINE 41218464223 Active Ahmet Carbajal MD Active PREDNISONE 20 MG TABS 2 daily for 5 days then 1 daily for 5 days PREDNISONE 72100758351 No Longer Active Ahmet Carbajal MD Active FLUTICASONE PROPIONATE 50 MCG/ACT SUSP 1 to 2 sprays each nostril daily for allergies FLUTICASONE PROPIONATE 27658537846 Active Tila Nicolas Active BENADRYL 25 MG CAP 4 po at bedtime for insomnia DIPHENHYDRAMINE HCL 83567080559 No Longer Active Ahmet Carbajal MD Active ADVAIR DISKUS 250-50 MCG/DOSE INH AEPB 1 puff twice a day for asthma FLUTICASONE-SALMETEROL 04485906331 No Longer Active Ahmet Carbajal MD Active KLONOPIN 1 MG ORAL TABS 1 tab po TID CLONAZEPAM 19067017157 No Longer Active Ahmet Carbajal MD Active ABILIFY MAINTENA 400 MG IM SUSR 400mg injection every 26 days ARIPIPRAZOLE 64393507265 No Longer Active Ahmet Carbajal MD Active TRAMADOL HCL 50 MG TABS 1/2-1 tab TID PRN TRAMADOL HCL 58946753600 No Longer Active Ahmet Carbajal MD Active BACTRIM DS 800-160 MG TABS 1 twice a day SULFAMETHOXAZOLE- TRIMETHOPRIM 07474755976 No Longer Active Ahmet Carbajal MD Active PROAIR HFA 108 (90 BASE) MCG/ACT AERS 2 puffs four times a day as needed 2015 ALBUTEROL SULFATE 74175795705 Active Honey Hinton SENIOR ACCOUNTANT CPA Active MONISTAT 7 COMBO PACK WOODROW 100 & 2 MG-% (9GM) VAG KIT 1 applicatorful per vagina q pm x 7 MICONAZOLE NITRATE 40485507255 No Longer Active Ahmet Carbajal MD Active FLAGYL 500 MG TAB 1 tablet by mouth bid METRONIDAZOLE 10311381511 No Longer Active Ahmet Carbajal MD Active OXYCODONE HCL ER 10 MG ORAL T12A 1/2 tab by mouth every 4 hours prn OXYCODONE HCL 42374507046 No Longer Active Ahmet Carbajal MD Active METHYLPREDNISOLONE 4 MG ORAL TABS po daily METHYLPREDNISOLONE 28616290390 No Longer Active Ahmet Carbajal MD Active LEVOFLOXACIN 500 MG ORAL TABS po daily LEVOFLOXACIN 76699038542 No Longer Active Ahmet Carbajal MD Active VIIBRYD 10 MG ORAL TABS Take 1 tablet once a day VILAZODONE HCL 49626287248 No Longer Active Ahmet Carbajal MD Active TOPAMAX 50 MG ORAL TABS 1 tab twice daily TOPIRAMATE 58896334847 No Longer Active Ahmet Carbajal MD Active DICLOFENAC SODIUM 50 MG TBEC 1 tablet by mouth four times daily PRN Pain 2015 DICLOFENAC SODIUM 65077894405 No Longer Active Ahmet Carbajal MD Active ADZENYS XR-ODT 6.3 MG ORAL TBED 1 tab po daily for ADHD AMPHETAMINE 95361848028 No Longer Active Ahmet Carbajal MD Active CHANTIX 1 MG TABS 1 twice a day to help quit smoking VARENICLINE TARTRATE 16112183316 No Longer Active Dipika Burgos MD Active CHANTIX STARTING MONTH EARNEST 0.5 MG X 11 & 1 MG X 42 TABS take as directed 2015 VARENICLINE TARTRATE 98491906654 No Longer Active Dipika Burgos MD Active TESSALON PERLES 100 MG CAP 1 to 2 tablets by mouth 3 times daily as needed for cough BENZONATATE 94213313739 No Longer Active Luigi Martínez APRN Active IMITREX 50 MG ORAL TABS 0.5 po x 1 PRN Headache. May repeat dose x 1 in 2 hours if needed SUMATRIPTAN SUCCINATE 22233763838 Active TAMAAR Casey Active HYDROCODONE-ACETAMINOPHEN 5-325 MG TABS 1 to 2 four times a day as needed for pain use until can be seen by specialist HYDROCODONE- ACETAMINOPHEN 12059386807 No Longer Active Vishal Hui MD Active PROAIR HFA 108 (90 BASE) MCG/ACT AERS 2 puffs four times a day as needed 2015 ALBUTEROL SULFATE 98849377374 No Longer Active Vishal Hui MD Active PREDNISONE 20 MG TABS 2 daily for 5 days then 1 daily for 5 days PREDNISONE 57476055364 No Longer Active Vishal Hui MD Active ZITHROMAX Z-EARNEST 250 MG TABS 2 today and then 1 daily for 4 days AZITHROMYCIN 75804843891 No Longer Active Vishal Hui MD Active DICLOFENAC POTASSIUM TABS Take 1 tablet twice a day (pt. is not sure of the dose.) DICLOFENAC POTASSIUM TABS 47772872036 No Longer Active Vishal Hui MD Active VERAPAMIL HCL ER 120 MG ORAL CR-TABS Take 1 tablet by mouth twice a day. VERAPAMIL HCL 93084432686 Active Vishal Hui MD Active FLAGYL 500 MG TAB 1 tablet by mouth bid METRONIDAZOLE 81753725316 No Longer Active Vishal Hui MD Active VALIUM 5 MG TAB Take 1-2 tablets daily DIAZEPAM 42268872374 No Longer Active Fabiola Johnson APRN Active METOPROLOL TARTRATE 25 MG ORAL TABS 1/2 tablet twice daily for heart rate and blood pressure METOPROLOL TARTRATE 31704692044 No Longer Active Fabiola Johnson APRN Active MIRALAX PACK 1 po qd PRN Constipation POLYETHYLENE GLYCOL 3350 81355851198 No Longer Active Ahmet Carbajal MD Active MINIPRESS 2 MG CAPS 4 cap po at night PRAZOSIN HCL 56385188307 No Longer Active Ahmet Carbajal MD Active PIROXICAM 20 MG CAPS 1 cap po qd PRN Pain PIROXICAM 39327536124 No Longer Active Ahmet Carbajal MD Active TRAMADOL HCL 50 MG TABS 1-2 po TID PRN Pain TRAMADOL HCL 28484654750 No Longer Active Ahmet Carbajal MD Active METOPROLOL TARTRATE 50 MG TAB 1 po bid METOPROLOL TARTRATE 10854318976 No Longer Active Ahmet Carbajal MD Active ABILIFY 15 MG ORAL TABS 1 tab daily ARIPIPRAZOLE 96730080744 No Longer Active Ahmet Carbajal MD Active PROZAC 20 MG ORAL CAPS 1 tab daily FLUOXETINE HCL 50482072503 No Longer Active Ahmet Carbajal MD Active AMBIEN 5 MG ORAL TABS 1 tab at bedtime ZOLPIDEM TARTRATE 05918516863 No Longer Active Ahmet Carbajal MD Active PREDNISONE 20 MG TAB 2 tabs daily for 4 days, 1 tab daily for 4 days, 1/2 tab daily for 4 days PREDNISONE 08402516732 No Longer Active Ahmet Carbajal MD Active KEFLEX 500 MG CAP 1 po TID x 10 days CEPHALEXIN 34468965067 No Longer Active Vishal Hui MD Active SAPHRIS 5 MG SUBL 1 po bid ASENAPINE MALEATE 49114893767 No Longer Active Jillina Frazell SENIOR ACCOUNTANT CPA Active LATUDA 80 MG TABS Take one by mouth daily LURASIDONE HCL 09913712717 No Longer Active Jillina Frazell SENIOR ACCOUNTANT CPA Active AMLODIPINE BESYLATE 5 MG TABS 1 tablet by mouth daily AMLODIPINE BESYLATE 67958656538 No Longer Active Jillina Frazell SENIOR ACCOUNTANT CPA Active AMITRIPTYLINE HCL 100 MG TAB one at hs AMITRIPTYLINE HCL 70020740005 No Longer Active Vishal Hui MD Active TRAZODONE HCL 100 MG TAB take 1 at bedtime TRAZODONE HCL 80160033110 No Longer Active Vishal Hui MD Active VYVANSE 40 MG CAPS 1 daily, LISDEXAMFETAMINE DIMESYLATE 69624950133 No Longer Active Vishal Hui MD Active IBUPROFEN 600 MG TAB 1 po TID PRN IBUPROFEN 06354811191 No Longer Active Vishal Hui MD Active PROZAC 20 MG CAP Take one by mouth daily FLUOXETINE HCL 38417311036 No Longer Active Vishal Hui MD Active BACTRIM DS 800-160 MG TABS 1 pill by mouth twice daily SULFAMETHOXAZOLE-TRIMETHOPRIM 81747051848 No Longer Active Sahara Rodriguez MD PhD Active DIFLUCAN 150 MG TAB 1 tablet by mouth daily FLUCONAZOLE 45378996627 No Longer Active Vishal Hui MD Active TIZANIDINE HCL 4 MG TABS 1 po q6hr PRN Muscle Spasm/Back Pain TIZANIDINE HCL 67533650741 Active TAMARA Casey Active CLINDAMYCIN HCL 150 MG CAPS 1 four times a day CLINDAMYCIN HCL 68220168696 No Longer Active Neeraj Collins MD Active KEFLEX 500 MG ORAL CAPS 1 cap QID by mouth CEPHALEXIN 06975379270 No Longer Active Neeraj Collins MD Active DIFLUCAN 150 MG TABS 1 pill every other day x 2 doses FLUCONAZOLE 84950696965 No Longer Active Sahara Rodriguez MD PhD Active MELATONIN 3 MG CAPS 2 po q hs MELATONIN 58058671495 No Longer Active Sahara Rodriguez MD PhD Active MULTIVITAMINS CAPS Take one by mouth daily MULTIPLE VITAMIN 12983944609 No Longer Active Sahara Rodriguez MD PhD Active BACTRIM DS 800-160 MG TAB 1 tab by mouth twice daily TRIMETHOPRIM-SULFAMETHOXAZOLE 51171781756 No Longer Active Sahara Rodriguez MD PhD Active [facility] PROBIOTIC ORAL CHEW 2 daily po PROBIOTIC PRODUCT 71559635386 No Longer Active Sahara Rodriguez MD PhD Active BACTRIM DS 800-160 MG TABS 1 po BID x 7 days SULFAMETHOXAZOLE-TRIMETHOPRIM 63794199623 No Longer Active Vishal Hui MD Active CHANTIX STARTING MONTH EARNEST 0.5 MG X 11 & 1 MG X 42 TABS 0.5mg daily for 3 days , then 0.5mg BID for 4 days, then 1mg BID VARENICLINE TARTRATE 78649217115 No Longer Active Lisette Scarrow, RMA Active VERAPAMIL HCL CR 120 MG TAB CR 1 po bid VERAPAMIL HCL 84328926791 No Longer Active Vishal Hui MD Active METOPROLOL SUCCINATE 50 MG TB24 1 tablet by mouth daily METOPROLOL SUCCINATE 42447668341 No Longer Active Vishal Hui MD Active SAPHRIS 10 MG SUBL 1 tab po bid ASENAPINE MALEATE 33707925680 No Longer Active Vishal Hui MD Active LISINOPRIL 20 MG TABS 1 tab po qd LISINOPRIL 44458068482 No Longer Active Vishal Hui MD Active LATUDA 20 MG TABS Take one by mouth daily LURASIDONE HCL 22109862818 No Longer Active Vishal Hui MD Active TRAZODONE HCL 50 MG TABS 1/2 tab po qd prn for anxiety TRAZODONE HCL 76438026148 No Longer Active Vishal Hui MD Active OMEPRAZOLE 20 MG TBEC 1 po q a.m. 30min prior to first food intake OMEPRAZOLE 81316957315 Active Bertha Kirby, TAMARA Active RANITIDINE HCL 150 MG CAPS 1 twice a day RANITIDINE HCL 77885921377 Active Lynda Xiao LPN Active LINZESS 290 MCG CAPS Take one by mouth daily LINACLOTIDE 20821683963 No Longer Active Vishal Hui MD Active SAPHRIS 5 MG SUBL 1 tab po qd ASENAPINE MALEATE 42025033531 No Longer Active Vishal Hui MD Active ZALEPLON 10 MG CAPS 1 cap po every other night ZALEPLON 97691736556 No Longer Active Vishal Hui MD Active LYRICA 50 MG CAPS 1 tab po TID PREGABALIN 66791245589 No Longer Active Vishal Hui MD Active LORATADINE 10 MG TABS 1 tab po qd LORATADINE 06505694936 No Longer Active Vishal Hui MD Active VERAPAMIL HCL ER 180 MG CR-TABS 1 tab po bid VERAPAMIL HCL 23374141640 No Longer Active Vishal Hui MD Active MIRALAX POWD 1 capfull once daily POLYETHYLENE GLYCOL 3350 91501381887 No Longer Active Vishal Hui MD Active PREDNISONE 20 MG TABS 1 tab po qd PREDNISONE 59300125395 No Longer Active Renzo Thornton DO Active LEVOFLOXACIN 500 MG TABS 1 tab po qd LEVOFLOXACIN 74619327369 No Longer Active Renzo Thornton DO Active BUSPIRONE HCL 15 MG TABS 1 tab po TID BUSPIRONE HCL 82787820354 No Longer Active Renzo Thornton DO Active BENZTROPINE MESYLATE 1 MG TABS 1 tab po qd BENZTROPINE MESYLATE 26841725038 No Longer Active Renzo Thornton DO Active ATENOLOL 25 MG TABS 1 tab po qd ATENOLOL 66578649538 No Longer Active Renzo Thornton DO Active ESCITALOPRAM OXALATE 20 MG TABS 1 tab po qd ESCITALOPRAM OXALATE 29311705396 No Longer Active Renzo Thornton DO Active ADVAIR DISKUS 250-50 MCG/DOSE AEPB 1 puff BID FLUTICASONE-SALMETEROL 91230787776 No Longer Active Renzo Thornton DO Active PREDNISONE 20 MG TAB 2 tabs daily for 3 days, 1 tab daily for 3 days, 1/2 tab daily for 2 days PREDNISONE 33693034600 No Longer Active Vishal Hui MD Active CEFDINIR 300 MG CAPS by mouth twice a day CEFDINIR 39091090638 No Longer Active Vishal Hui MD Active LANSOPRAZOLE 30 MG CPDR 1 cap po qd LANSOPRAZOLE 64463044178 No Longer Active Vishal Hui MD Active BACLOFEN 20 MG TABS 1 tab po tid BACLOFEN 45189144539 No Longer Active Vishal Hui MD Active ADVAIR DISKUS 250-50 MCG/DOSE AEPB 1 puff BID ADVAIR DISKUS 250-50 MCG/DOSE AEPB FLUTICASONE-SALMETEROL Inactive ESCITALOPRAM OXALATE 20 MG TABS 1 tab po qd ESCITALOPRAM OXALATE 20 MG TABS 618598 ESCITALOPRAM OXALATE Inactive ATENOLOL 25 MG TABS 1 tab po qd ATENOLOL 25 MG TABS 982586 ATENOLOL Inactive BENZTROPINE MESYLATE 1 MG TABS 1 tab po qd BENZTROPINE MESYLATE 1 MG TABS 781640 BENZTROPINE MESYLATE Inactive BUSPIRONE HCL 15 MG TABS 1 tab po TID BUSPIRONE HCL 15 MG TABS 960105 BUSPIRONE HCL Inactive LEVOFLOXACIN 500 MG TABS 1 tab po qd LEVOFLOXACIN 500 MG TABS 903011 LEVOFLOXACIN Inactive PREDNISONE 20 MG TABS 1 tab po qd PREDNISONE 20 MG TABS 563737 PREDNISONE Inactive MIRALAX POWD 1 capfull once daily MIRALAX POWD 062011 POLYETHYLENE GLYCOL 3350 Inactive VERAPAMIL HCL ER 180 MG CR-TABS 1 tab po bid VERAPAMIL HCL ER 180 MG CR-TABS VERAPAMIL HCL Inactive LORATADINE 10 MG TABS 1 tab po qd LORATADINE 10 MG TABS 281764 LORATADINE Inactive LYRICA 50 MG CAPS 1 tab po TID LYRICA 50 MG CAPS PREGABALIN Inactive ZALEPLON 10 MG CAPS 1 cap po every other night ZALEPLON 10 MG CAPS 494682 ZALEPLON Inactive SAPHRIS 5 MG SUBL 1 tab po qd SAPHRIS 5 MG SUBL ASENAPINE MALEATE Inactive TRAZODONE HCL 50 MG TABS 1/2 tab po qd prn for anxiety TRAZODONE HCL 50 MG TABS 324862 TRAZODONE HCL Inactive LATUDA 20 MG TABS Take one by mouth daily LATUDA 20 MG TABS LURASIDONE HCL Inactive LISINOPRIL 20 MG TABS 1 tab po qd LISINOPRIL 20 MG TABS 926532 LISINOPRIL Inactive SAPHRIS 10 MG SUBL 1 [...] twice daily BACTRIM DS 800-160 MG TAB 005507 TRIMETHOPRIM-SULFAMETHOXAZOLE Inactive MULTIVITAMINS CAPS Take one by mouth daily MULTIVITAMINS CAPS MULTIPLE VITAMIN Inactive MELATONIN 3 MG CAPS 2 po q hs MELATONIN 3 MG CAPS 179081 MELATONIN Inactive KEFLEX 500 MG ORAL CAPS 1 cap QID by mouth KEFLEX 500 MG ORAL CAPS 935821 CEPHALEXIN Inactive CLINDAMYCIN HCL 150 MG CAPS 1 four times a day CLINDAMYCIN HCL 150 MG CAPS 19740326 CLINDAMYCIN HCL Inactive DIFLUCAN 150 MG TAB 1 tablet by mouth daily DIFLUCAN 150 MG TAB 278332 FLUCONAZOLE Inactive PROZAC 20 MG CAP Take one by mouth daily PROZAC 20 MG CAP 720184 FLUOXETINE HCL Inactive IBUPROFEN 600 MG TAB 1 po TID PRN IBUPROFEN 600 MG TAB 313714 IBUPROFEN Inactive VYVANSE 40 MG CAPS 1 daily, VYVANSE 40 MG CAPS LISDEXAMFETAMINE DIMESYLATE Inactive TRAZODONE HCL 100 MG TAB take 1 at bedtime TRAZODONE HCL 100 MG TAB 366827 TRAZODONE HCL Inactive AMITRIPTYLINE HCL 100 MG TAB one at hs AMITRIPTYLINE HCL 100 MG TAB 666211 AMITRIPTYLINE HCL Inactive AMLODIPINE BESYLATE 5 MG TABS 1 tablet by mouth daily AMLODIPINE BESYLATE 5 MG TABS 220529 AMLODIPINE BESYLATE Inactive LATUDA 80 MG TABS Take one by mouth daily LATUDA 80 MG TABS LURASIDONE HCL Inactive SAPHRIS 5 MG SUBL 1 po bid SAPHRIS 5 MG SUBL ASENAPINE MALEATE Inactive PREDNISONE 20 MG TAB 2 tabs daily for 4 days, 1 tab daily for 4 days, 1/2 tab daily for 4 days PREDNISONE 20 MG TAB 145930 PREDNISONE Inactive AMBIEN 5 MG ORAL TABS 1 tab at bedtime AMBIEN 5 MG ORAL TABS 383206 ZOLPIDEM TARTRATE Inactive PROZAC 20 MG ORAL CAPS 1 tab daily PROZAC 20 MG ORAL CAPS 458955 FLUOXETINE HCL Inactive ABILIFY 15 MG ORAL TABS 1 tab daily ABILIFY 15 MG ORAL TABS 205251 ARIPIPRAZOLE Inactive METOPROLOL TARTRATE 50 MG TAB 1 po bid METOPROLOL TARTRATE 50 MG TAB 004717 METOPROLOL TARTRATE Inactive TRAMADOL HCL 50 MG TABS 1-2 po TID PRN Pain TRAMADOL HCL 50 MG TABS 290047 TRAMADOL HCL Inactive PIROXICAM 20 MG CAPS 1 cap po qd PRN Pain PIROXICAM 20 MG CAPS 762226 PIROXICAM Inactive MINIPRESS 2 MG CAPS 4 cap po at night MINIPRESS 2 MG CAPS 224468 PRAZOSIN HCL Inactive MIRALAX PACK 1 po qd PRN Constipation MIRALAX PACK 139702 POLYETHYLENE GLYCOL 3350 Inactive METOPROLOL TARTRATE 25 MG ORAL TABS 1/2 tablet twice daily for heart rate and blood pressure METOPROLOL TARTRATE 25 MG ORAL TABS 431820 METOPROLOL TARTRATE Inactive VALIUM 5 MG TAB Take 1-2 tablets daily VALIUM 5 MG TAB 299913 DIAZEPAM Inactive FLAGYL 500 MG TAB 1 tablet by mouth bid FLAGYL 500 MG TAB 580251 METRONIDAZOLE Inactive DICLOFENAC POTASSIUM TABS Take 1 tablet twice a day (pt. is not sure of the dose.) DICLOFENAC POTASSIUM TABS DICLOFENAC POTASSIUM TABS Inactive ZITHROMAX Z-EARNEST 250 MG TABS 2 today and then 1 daily for 4 days ZITHROMAX Z-EARNEST 250 MG TABS 0196378 AZITHROMYCIN Inactive PREDNISONE 20 MG TABS 2 daily for 5 days then 1 daily for 5 days PREDNISONE 20 MG TABS 225514 PREDNISONE Inactive PROAIR HFA 108 (90 BASE) MCG/ACT AERS 2 puffs four times a day as needed 2015 PROAIR HFA 108 (90 BASE) MCG/ACT AERS ALBUTEROL SULFATE Inactive HYDROCODONE-ACETAMINOPHEN 5-325 MG TABS 1 to 2 four times a day as needed for pain use until can be seen by specialist HYDROCODONE- ACETAMINOPHEN 5-325 MG TABS 211116 HYDROCODONE-ACETAMINOPHEN Inactive TESSALON PERLES 100 MG CAP 1 to 2 tablets by mouth 3 times daily as needed for cough TESSALON PERLES 100 MG CAP 547727 BENZONATATE Inactive CHANTIX STARTING MONTH EARNEST 0.5 [...] Pain 2015 DICLOFENAC SODIUM 50 MG TBEC 987015 DICLOFENAC SODIUM Inactive TOPAMAX 50 MG ORAL TABS 1 tab twice daily TOPAMAX 50 MG ORAL TABS 845977 TOPIRAMATE Inactive VIIBRYD 10 MG ORAL TABS Take 1 tablet once a day VIIBRYD 10 MG ORAL TABS VILAZODONE HCL Inactive LEVOFLOXACIN 500 MG ORAL TABS po daily LEVOFLOXACIN 500 MG ORAL TABS 017648 LEVOFLOXACIN Inactive METHYLPREDNISOLONE 4 MG ORAL TABS po daily METHYLPREDNISOLONE 4 MG ORAL TABS 123134 METHYLPREDNISOLONE Inactive OXYCODONE HCL ER 10 MG ORAL T12A 1/2 tab by mouth every 4 hours prn OXYCODONE HCL ER 10 MG ORAL T12A OXYCODONE HCL Inactive FLAGYL 500 MG TAB 1 tablet by mouth bid FLAGYL 500 MG TAB 379660 METRONIDAZOLE Inactive MONISTAT 7 COMBO PACK WOODROW 100 & 2 MG-% (9GM) VAG KIT 1 applicatorful per vagina q pm x 7 MONISTAT 7 COMBO PACK WOODROW 100 & 2 MG-% (9GM) VAG KIT MICONAZOLE NITRATE Inactive BACTRIM DS 800-160 MG TABS 1 twice a day BACTRIM DS 800-160 MG TABS 804065 SULFAMETHOXAZOLE-TRIMETHOPRIM Inactive TRAMADOL HCL 50 MG TABS 1/2-1 tab TID PRN TRAMADOL HCL 50 MG TABS 754202 TRAMADOL HCL Inactive ABILIFY MAINTENA 400 MG IM SUSR 400mg injection every 26 days ABILIFY MAINTENA 400 MG IM SUSR ARIPIPRAZOLE Inactive KLONOPIN 1 MG ORAL TABS 1 tab po TID KLONOPIN 1 MG ORAL TABS 612702 CLONAZEPAM Inactive ADVAIR DISKUS 250-50 MCG/DOSE INH AEPB 1 puff twice a day for asthma ADVAIR DISKUS 250-50 MCG/DOSE INH AEPB FLUTICASONE- SALMETEROL Inactive BENADRYL 25 MG CAP 4 po at bedtime for insomnia BENADRYL 25 MG CAP DIPHENHYDRAMINE HCL Inactive PREDNISONE 20 MG TABS 2 daily for 5 days then 1 daily for 5 days PREDNISONE 20 MG TABS 808796 PREDNISONE Inactive HYDROCODONE-ACETAMINOPHEN 5-325 MG ORAL TABS 1 tab two times a day HYDROCODONE-ACETAMINOPHEN 5-325 MG ORAL TABS 264858 HYDROCODONE-ACETAMINOPHEN Inactive ZITHROMAX Z-EARNEST 250 MG TABS 2 today and then 1 daily for 4 days ZITHROMAX Z-EARNEST 250 MG TABS [id number] AZITHROMYCIN Inactive GUAIFENESIN-CODEINE 100-10 MG/5ML SYRP 5ml every 4 to 6 hours as needed for cough GUAIFENESIN-CODEINE 100-10 MG/5ML SYRP [id number] GUAIFENESIN-CODEINE Inactive HALOPERIDOL 10 MG ORAL TABS 1 tab q.d HALOPERIDOL 10 MG ORAL TABS [id number] HALOPERIDOL Inactive ASPIRIN 325 MG ORAL TABS 1 tab q.d ASPIRIN 325 MG ORAL TABS [id number] ASPIRIN Inactive FLUTICASONE PROPIONATE 50 MCG/ACT SUSP 2 sprays each nostril daily before bed. FLUTICASONE PROPIONATE 50 MCG/ACT SUSP [id number] FLUTICASONE PROPIONATE Inactive ZOFRAN 4 MG TABS 1 po q6hr PRN Nausea ZOFRAN 4 MG TABS [id number] ONDANSETRON HCL Inactive KEFLEX 500 MG CAP 1 po qid KEFLEX 500 MG CAP [id number] CEPHALEXIN Inactive ACETAMINOPHEN-CODEINE 120-12 MG/5ML SOLN 5 ml by mouth every 4-6 hours if needed for cough ACETAMINOPHEN-CODEINE 120-12 MG/5ML SOLN 005385 ACETAMINOPHEN-CODEINE Inactive PREDNISONE 20 MG TAB 1 tablet daily x 4 days PREDNISONE 20 MG TAB 726126 PREDNISONE Inactive TROPICAMIDE 0.5 % OPHTH SOLN 1 drop PRN eye spasms TROPICAMIDE 0.5 % OPHTH SOLN 746939 TROPICAMIDE Inactive LEVAQUIN 500 MG TABS 1 daily for infection LEVAQUIN 500 MG TABS 110149 LEVOFLOXACIN Inactive PREDNISONE 10 MG TABS 2 daily for 5 days then 1 daily for 5 days PREDNISONE 10 MG TABS 907805 PREDNISONE Inactive EQ NICOTINE 21 MG/24HR TRANS [...] for cough TESSALON PERLES 100 MG CAPS 398181 BENZONATATE Inactive AMITIZA 8 MCG ORAL CAPS [...] twice a day MUPIROCIN 2 % OINT 528793 MUPIROCIN Inactive BACTRIM DS 800-160 MG TAB Take one (1) tablet by mouth twice a day for 5 days BACTRIM DS 800-160 MG TAB [id number] TRIMETHOPRIM- SULFAMETHOXAZOLE Inactive LACTULOSE 10 GM/15ML ORAL SOLN 30mL oral BID for IBS-C LACTULOSE 10 GM/15ML ORAL SOLN 350857 LACTULOSE Inactive MIRALAX ORAL POWD 17GMS DAILY IN WATER MIRALAX ORAL POWD 505553 POLYETHYLENE GLYCOL 3350 Inactive CEFDINIR 300 MG CAPS by mouth twice a day CEFDINIR 300 MG CAPS 906394 CEFDINIR Inactive PREDNISONE 20 MG TAB 2 tabs daily for 3 days, 1 tab daily for 3 days, 1/2 tab daily for 2 days PREDNISONE 20 MG TAB 585539 PREDNISONE Inactive BACTRIM DS 800-160 MG TABS 1 po BID x 7 days BACTRIM DS 800-160 MG TABS 19820521 SULFAMETHOXAZOLE-TRIMETHOPRIM Inactive DIFLUCAN 150 MG TABS 1 pill every other day x 2 doses DIFLUCAN 150 MG TABS 362153 FLUCONAZOLE Inactive BACTRIM DS 800-160 MG TABS 1 pill by mouth twice daily BACTRIM DS 800-160 MG TABS 19820521 SULFAMETHOXAZOLE-TRIMETHOPRIM Inactive KEFLEX 500 MG CAP 1 po TID x 10 days KEFLEX 500 MG CAP 464237 CEPHALEXIN Inactive Advance Directives Directive Description Start [...] % 11.0-15.0 platelet count 443 THOUSAND/UL 10*3/mm3 526-238 2967/03/01 mean platelet volume 8.2 fL 7.5-12.5 leukocyte [...] % 11.0-15.0 platelet count 349 THOUSAND/UL 10*3/mm3 319-008 4982/04/12 mean platelet volume 8.4 fL 7.5-12.5 Lab Report: CBC W/DIFF, Comp. Metabolic Panel, HGBA1C, Magnesium - Chemistry sodium, serum 141 mmol/L 407-710 0202/07/24 carbon dioxide, venous blood 27.8 mmol/L 21.0-32.0 [...] 369 10^3/MM^3 10*3/mm3 142-424 Lab Report: Chlamydia/GC APTIMA/93989 - Lab chlamydia DNA probe NOT DETECTED NOT DETECTED Lab Report: Chlamydia/GC APTIMA/87882 - Microbiology Neisseria gonorrhoeae DNA probe NOT DETECTED NOT DETECTED Lab Report: Chlamydia/GC APTIMA/07114, Urinalysis, Complete, with Reflex ... - Lab chlamydia DNA probe NOT DETECTED NOT DETECTED Lab Report: Chlamydia/GC APTIMA/82848, Urinalysis, Complete, with Reflex ... - Microbiology Neisseria gonorrhoeae DNA probe NOT DETECTED NOT DETECTED Lab Report: Chlamydia/GC APTIMA/64456, Urinalysis, Complete, with Reflex ... - Urinalysis microalbumin/total urine volume 2 mg/L Units converted. See lab report for original value. microalbumin/creatinine ratio, urine 9 MCG/MG CREAT mg/L <30 Lab Report: Comp. Metabolic Panel - Chemistry sodium, serum 140 mmol/L [phone]/06/28 carbon dioxide, venous blood 23.8 mmol/L 21.0-32.0 [...] negative Encounters Code Encounter Date Provider Facility CPT-77036 Level 3 Est. Patient 11:36:47 CDT [facility]-69294 Level 3 Est. [facility] 10:53:17 [facility] 11:08:35 [facility] Patient 15:55:20 [facility] 4 Est. Patient 10:49:34 CDT [facility] 2001-71040 Level 3 Est. [facility] 3 Est. Patient 10:29:30 CDT Suzan Boo [facility] CPT-91160 Level 3 Est. Patient 11:04:38 CDT Renzo Barajas [facility]-85698 Level 3 Est. Patient 11:15:58 PACKING MACHINE TENDER Renzo Thornton [facility]-53319 Level 3 Est. Patient 15:28:23 PACKING MACHINE TENDER Suzan Boo [facility] CPT-51325 Level 4 Est. Patient 10:20:54 PACKING MACHINE TENDER [facility] 2001-08587 Level 3 Est. Patient 11:47:37 PACKING MACHINE TENDER Ahmet Carbajal MD [facility]-11801 Level 3 Est. Patient 10:40:11 PACKING MACHINE TENDER Ahmet Carbajal MD [facility]-97949 Level 3 Est. Patient 15:07:06 PACKING MACHINE TENDER Neeraj Collins MD [facility] CPT-72928 Level 4 Est. Patient 14:45:00 PACKING MACHINE TENDER Ahmet Carbajal MD [facility] CPT-99385 Level 3 Est. Patient 13:59:59 CDT Luigi Martínez [facility] CPT-53622 Level 3 Est. Patient 18:18:53 CDT Neeraj Collins MD [facility] CPT-47863 Level 3 Est. Patient 15:50:44 CDT Vishal Hui MD [facility] CPT-07029 Level 3 Est. Patient 11:36:17 CDT Ahmet Carbajal MD [facility] CPT-90662 Level 3 Est. Patient 13:29:16 CDT Vishal Hui MD [facility] CPT-84261 Level 3 Est. Patient 14:27:52 CDT Neeraj Collins MD [facility] CPT-26322 Level 3 Est. Patient 08:56:03 CDT Luigi Martínez [facility] CPT-24880 Level 4 Est. Patient 12:11:48 CDT Fabiola Johnson [facility] CPT-20439 Level 3 New Patient 16:53:37 CDT Albert Caldera MD [facility] CPT-35395 Level 3 Est. Patient 11:25:49 CDT Renzo Thornton DO [facility] CPT-91257 Level 3 Est. Patient 15:22:01 CDT Ahmet Carbajal MD [facility] CPT-92130 Level 4 Est. Patient 09:00:51 PACKING MACHINE TENDER Vishal Hui MD [facility] CPT-47297 Level 3 Est. Patient 11:37:33 PACKING MACHINE TENDER Vishal Hui MD [facility] CPT-73535 Level 3 Est. Patient 08:41:09 PACKING MACHINE TENDER Vishal Hui MD [facility] CPT-77120 Level 4 Est. Patient 10:19:35 PACKING MACHINE TENDER Vishal Hui MD [facility] CPT-74209 Level 3 Est. Patient 13:35:45 CDT Vishal Hui MD [facility] CPT-68032 Level 4 Est. Patient 10:08:37 CDT Vishal Hui MD [facility] CPT-41755 Level 3 Est. Patient 11:22:10 CDT Vishal Hui MD [facility] CPT-47649 Level 3 Est. Patient 11:03:32 CDT Sahara Rodriguez MD [facility]-08148 Level 3 Est. Patient 09:41:35 CDT Vishal Hui MD [facility] CPT-30401 Level 3 Est. Patient 12:00:41 CDT Neeraj Collins MD [facility] CPT-68486 Level 3 Est. Patient 09:16:24 CDT Vishal Hui MD [facility] CPT-31017 Level 4 Est. Patient 13:59:09 CDT Neeraj Collnis MD [facility] CPT-70180 Level 3 Est. Patient 15:19:43 CDT Renzo Thornton DO [facility] CPT-46236 Level 3 Est. Patient 18:10:26 CDT Sahara Rodriguez MD [facility] CPT-19171 Level 3 Est. Patient 14:49:50 CDT Vishal Hui MD [facility] CPT-18078 Level 4 Est. Patient 18:41:46 CDT Neeraj Collins MD [facility]-00319 Level 4 Est. Patient 09:18:38 PACKING MACHINE TENDER Vishal Hui MD [facility] CPT-62441 Level 3 Est. Patient 14:43:55 PACKING MACHINE TENDER Vihsal Hui MD [facility] CPT-45501 Level 3 Est. Patient 15:26:33 PACKING MACHINE TENDER Sahara Rodriguez MD PhD [facility] CPT-54412 Level 3 Est. Patient 10:32:14 PACKING MACHINE TENDER Vishal Hui MD [facility] CPT-68351 Level 3 Est. Patient 15:12:52 PACKING MACHINE TENDER Vishal Hui MD [facility] CPT-32849 Level 4 Est. Patient 09:19:27 CDT Vishal Hui MD [facility] CPT-42778 Level 3 Est. Patient 15:53:00 CDT Renzo Thornton [facility] CPT-46720 Level 3 Est. Patient 15:50:30 CDT Renzo Thornton [facility] CPT-63352 Level 3 Est. Patient 16:55:24 CDT Vishal Hui MD [facility] Procedures Code Procedure Name Date Entry Date Standard Description CPT-84904 UA Dip Auto (Floor Use Only) 11:36:47 CDT CPT-46328 Venipuncture Draw Fee 10:53:17 CDT CPT-24988 EKG Trac and Interp - XRAY USE ONLY 15:59:30 CDT 09/13 CPT-49885 Chest 1V Frontal - XRAY USE ONLY 15:59:30 CDT CPT-79792 Venipuncture Draw Fee 15:44:02 CDT CPT-82689 Venipuncture Draw Fee 08:41:12 CDT CPT-55098 Abd compl w upright - XRAY USE ONLY 10:27:59 CDT 06/28 CPT-87385 Smoking Cessation counseling 11:15:58 PACKING MACHINE TENDER CPT-G0439 [facility] Annual Wellness Exam 09:30:58 PACKING MACHINE TENDER CPT-22596 TSH - LAB USE ONLY 08:50:26 PACKING MACHINE TENDER CPT-90988 CBC - LAB USE ONLY 08:50:26 PACKING MACHINE TENDER CPT-96016 Venipuncture Draw Fee 08:50:26 PACKING MACHINE TENDER CPT-77523 Abx/Therapy Injection 17:34:30 PACKING MACHINE TENDER CPT-99650 Nexplanon Removal with Reinsertion 14:09:32 CDT CPT-J7307 Nexplanon (Implant) 14:09:32 CDT CPT-OV Office Visit 14:09:32 CDT CPT-35466 UA w micro - LAB USE ONLY 16:21:13 CDT CPT-07791 Wet Mount - LAB USE ONLY 16:21:13 CDT CPT-90356 First Vx - Ix admin for Medicare patients 14:37:47 CDT CPT-54502 Fluzone Preservative Free Intramuscular Suspension 14:37 :47 CDT CPT-28844 Abx/Therapy Injection 13:54:22 CDT CPT-63367 Abx/Therapy Injection 08:47:09 CDT CPT-78771 Abx/Therapy Injection 13:29:56 CDT CPT-36627 Abx/Therapy Injection 08:36:16 CDT CPT-35991 Wet [place] - LAB USE ONLY 17:44:58 CDT CPT-43977 UA w micro - LAB USE ONLY 17:44:58 CDT CPT-10393 CMP - LAB USE ONLY 17:44:58 CDT CPT-86908 Venipuncture Draw Fee 17:44:58 CDT CPT-47315 Cervical Min 4V - XRAY USE ONLY 09:01:40 CDT CPT-48177 Chest 2V Frontal and Lat - XRAY USE ONLY 11:06:31 CDT CPT-72636 EKG Trac and Interp - XRAY USE ONLY 11:31:43 CDT 08/26 CPT-J3420 Vitamin B12 1000mcg (Cyanocobalamin) 08:10:26 PACKING MACHINE TENDER 04/12 CPT-76033 Abx/Therapy Injection 08:10:26 PACKING MACHINE TENDER CPT-G0438 Initial Annual Wellness Exam 19:01:01 PACKING MACHINE TENDER CPT-J3420 Vitamin B12 1000mcg (Cyanocobalamin) 16:57:46 CDT 08/14 CPT-21485 Recombivax HB Injection Suspension 5 MCG/0.5ML 08:37:50 PACKING MACHINE TENDER CPT-67620 Immunization Single Admin 08:37:50 PACKING MACHINE TENDER CPT-J3420 Vitamin B12 1000mcg (Cyanocobalamin) 08:32:16 PACKING MACHINE TENDER 03/11 CPT-95125 Abx/Therapy Injection 08:32:16 PACKING MACHINE TENDER CPT-27259 Chest 2V Frontal and Lat 11:46:38 PACKING MACHINE TENDER CPT-18246 Venipuncture Draw Fee 09:12:45 PACKING MACHINE TENDER CPT-J3420 Vitamin B12 1000mcg (Cyanocobalamin) 08:50:15 PACKING MACHINE TENDER 02/08 CPT-88080 Abx/Therapy Injection 08:50:15 PACKING MACHINE TENDER CPT-Cryo Cryotherapy 10:19:35 PACKING MACHINE TENDER CPT-000 Give Appropriate Flu Vaccine 09:22:16 CDT CPT-J3420 Vitamin B12 1000mcg (Cyanocobalamin) 19:08:57 CDT 01/11 CPT-39795 Abx/Therapy Injection 19:08:57 CDT CPT-J3420 Vitamin B12 1000mcg (Cyanocobalamin) 08:19:08 CDT 12/11 CPT-16006 Abx/Therapy Injection 08:19:08 CDT CPT-J3420 Vitamin B12 1000mcg (Cyanocobalamin) 14:48:00 CDT 11/09 CPT-38147 Abx/Therapy Injection 14:47:59 CDT CPT-J3420 Vitamin B12 1000mcg (Cyanocobalamin) 08:34:04 CDT 10/09 CPT-04325 Abx/Therapy Injection 08:34:04 CDT CPT-J3420 Vitamin B12 1000mcg (Cyanocobalamin) 09:18:52 CDT 09/11 CPT-79359 Abx/Therapy Injection 09:18:52 CDT CPT-J3420 Vitamin B12 1000mcg (Cyanocobalamin) 08:35:44 CDT 09/04 CPT-62712 Abx/Therapy Injection 08:35:44 CDT CPT-44056 Immunization Single Admin 11:07:16 CDT CPT-62313 Hepatitis B adult IM 11:07:16 CDT CPT-J3420 Vitamin B12 1000mcg (Cyanocobalamin) 11:00:49 CDT 08/28 CPT-J1040 Depo Medrol 80 mg (Methyl Prednisolone Acetate) 11:00: 49 CDT CPT-16096 Abx/Therapy Injection 11:00:49 CDT CPT-J1040 Depo Medrol 80 mg (Methyl Prednisolone Acetate) 09:16: 23 CDT CPT-J3420 Vitamin B12 1000mcg (Cyanocobalamin) 08:27:05 CDT 08/20 CPT-19354 Abx/Therapy Injection 08:27:05 CDT CPT-82680 Recombivax HB Injection Suspension 5 MCG/0.5ML 10:00:41 CDT CPT-67132 Administration single or combination vaccine inc oral 10 :00:41 CDT CPT-84360 Sono transvag pelvis non OB uterus ovaries cervix 16:36: 57 CDT CPT-33977 LS spine comp w obliq 09:50:55 PACKING MACHINE TENDER CPT-06782 Abd compl w upright 09:50:55 PACKING MACHINE TENDER CPT-J1100 Decadron 4mg (Dexamethasone) 15:51:24 PACKING MACHINE TENDER CPT-J1030 Depo Medrol 40 mg (Methyl Prednisolone Acetate) 15:51: 24 PACKING MACHINE TENDER CPT-25180 Abx/Therapy Injection 15:51:24 PACKING MACHINE TENDER CPT-J1100 Decadron 4mg (Dexamethasone) 15:26:33 PACKING MACHINE TENDER CPT-J1030 Depo Medrol 40 mg (Methyl Prednisolone Acetate) 15:26: 33 PACKING MACHINE TENDER CPT-57138 Sono retroperitoneal complete kidneys and bladder 17:15: 30 CDT CPT-44295 Abd compl w upright 16:09:25 CDT CPT-J1100 Decadron 8mg (Dexamethasone) 17:07:57 CDT CPT-32285 Abx/Therapy Injection 17:07:57 CDT CPT-J1100 Decadron 8mg (Dexamethasone) 16:55:24 CDT CPT-68247 Chest 2V Frontal and Lat 16:32:44 CDT
--- OUTSIDE RECORDS SUMMARY | 2016-11-04 14:31 | XMS REPORT | Clinical Summary ---
Author Author Admin, [email or web address] Organization [facility] Address Unknown Phone Unavailable Allergies, Adverse Reactions, [...] Shortness of breath 786.05 Active Fabiola Johnson CASE COORDINATOR Shortness of breath Nocturnal hypoxia 799.02 Active Fabiola Johnson CASE COORDINATOR Hypoxemia Neck pain 723.1 Active Luigi Martínez CASE COORDINATOR Cervicalgia Vaginal discharge 623.5 Active Neeraj Collins [...] ICD-682.9 Jim Hui MD Physical examination ICD-V70.0 Inactive Vishal [...] ICD-288.60 Inactive Vishal Hui MD UTI ICD-599.0 Jim Hui MD [...] times daily PRN Pain 2015 DICLOFENAC SODIUM 86203279200 Active Vishal Hui MD Active DICLOFENAC POTASSIUM TABS Take 1 tablet twice a day (pt. is not sure of the dose.) DICLOFENAC POTASSIUM TABS 32915397402 No Longer Active Vishal Hui MD Active VERAPAMIL HCL ER 120 MG ORAL CR-TABS Take 1 tablet by mouth twice a day. VERAPAMIL HCL 18238735777 Active Vishal Hui MD Active FLAGYL 500 MG TAB 1 tablet by mouth bid METRONIDAZOLE 95005574850 No Longer Active Vishal Hui MD Active ABILIFY MAINTENA 400 MG IM SUSR 400mg injection every 28 days ARIPIPRAZOLE 66166727543 Active Silvia Casey SOLUTION SPECIALIST Active FLUTICASONE PROPIONATE 50 MCG/ACT SUSP 2 sprays each nostril daily before bed. FLUTICASONE PROPIONATE 52519285403 Active Fabiola Johnson APRN Active ADZENYS XR-ODT 6.3 MG ORAL TBED 1 tab po daily for ADHD AMPHETAMINE 11234214078 Active Fabiola Johnson APRN Active BENADRYL 25 MG CAP 4 po at bedtime for insomnia DIPHENHYDRAMINE HCL 95657953416 Active Fabiola Johnson APRN Active KLONOPIN 1 MG ORAL TABS 1 tab po TID CLONAZEPAM 05983846737 Active Fabiola Johnson APRN Active VALIUM 5 MG TAB Take 1-2 tablets daily DIAZEPAM 62754042219 No Longer Active Fabiola Johnson APRN Active METOPROLOL TARTRATE 25 MG ORAL TABS 1/2 tablet twice daily for heart rate and blood pressure METOPROLOL TARTRATE 34008368786 No Longer Active Fabiola Johnson APRN Active MIRALAX ORAL POWD 17GMS DAILY IN WATER POLYETHYLENE GLYCOL 3350 74093653199 Active Vishal Hui MD Active VIIBRYD 10 MG ORAL TABS Take 1 tablet once a day VILAZODONE HCL 60890022065 Active Ahmet Carbajal MD Active MIRALAX PACK 1 po qd PRN Constipation POLYETHYLENE GLYCOL 3350 07299946265 No Longer Active Ahmet Carbajal MD Active MINIPRESS 2 MG CAPS 4 cap po at night PRAZOSIN HCL 42803430293 No Longer Active Ahmet Carbajal MD Active PIROXICAM 20 MG CAPS 1 cap po qd PRN Pain PIROXICAM 88380769485 No Longer Active Ahmet Carbajal MD Active TRAMADOL HCL 50 MG TABS 1-2 po TID PRN Pain TRAMADOL HCL 97652748168 No Longer Active Ahmet Carbajal MD Active METOPROLOL TARTRATE 50 MG TAB 1 po bid METOPROLOL TARTRATE 79428209772 No Longer Active Ahmet Carbajal MD Active ABILIFY 15 MG ORAL TABS 1 tab daily ARIPIPRAZOLE 16988316129 No Longer Active Ahmet Carbajal MD Active PROZAC 20 MG ORAL CAPS 1 tab daily FLUOXETINE HCL 36914422883 No Longer Active Ahmet Carbajal MD Active AMBIEN 5 MG ORAL TABS 1 tab at bedtime ZOLPIDEM TARTRATE 71772242997 No Longer Active Ahmet Carbajal MD Active PREDNISONE 20 MG TAB 2 tabs daily for 4 days, 1 tab daily for 4 days, 1/2 tab daily for 4 days PREDNISONE 23686470531 No Longer Active Ahmet Carbajal MD Active KEFLEX 500 MG CAP 1 po TID x 10 days CEPHALEXIN 54283797545 No Longer Active Vishal Hui MD Active IMITREX 50 MG ORAL TABS 1/2 tab every 6 hours prn SUMATRIPTAN SUCCINATE 13770058261 Active Pacollina Mauricio NORIEGA Active TOPAMAX 50 MG ORAL TABS 1 tab twice daily TOPIRAMATE 54641740429 Active Vishal Hui MD Active SAPHRIS 5 MG SUBL 1 po bid ASENAPINE MALEATE 48150400328 No Longer Active Luigi Martínez APRN Active LATUDA 80 MG TABS Take one by mouth daily LURASIDONE HCL 44076054975 No Longer Active Pacolljanee Martínez APRN Active AMLODIPINE BESYLATE 5 MG TABS 1 tablet by mouth daily AMLODIPINE BESYLATE 09140415446 No Longer Active Luigi Martínez APRN Active AMITRIPTYLINE HCL 100 MG TAB one at hs AMITRIPTYLINE HCL 46480394828 No Longer Active Vishal Hui MD Active TRAZODONE HCL 100 MG TAB take 1 at bedtime TRAZODONE HCL 73752774753 No Longer Active Vishal Hui MD Active VYVANSE 40 MG CAPS 1 daily, LISDEXAMFETAMINE DIMESYLATE 17309424435 No Longer Active Vsihal Hui MD Active IBUPROFEN 600 MG TAB 1 po TID PRN IBUPROFEN 43116552605 No Longer Active Vishal Hui MD Active PROZAC 20 MG CAP Take one by mouth daily FLUOXETINE HCL 73594354022 No Longer Active Vishal Hui MD Active ZOFRAN 4 MG TABS 1 po q6hr PRN Nausea ONDANSETRON HCL Active Vishal Hui MD Active BACTRIM DS 800-160 MG TABS 1 pill by mouth twice daily SULFAMETHOXAZOLE-TRIMETHOPRIM 19129748376 No Longer Active Sahara Rodriguez MD PhD Active DIFLUCAN 150 MG TAB 1 tablet by mouth daily FLUCONAZOLE 95816436757 No Longer Active Vishal Hui MD Active TIZANIDINE HCL 4 MG TABS 1 po q6hr PRN Muscle Spasm/Back Pain TIZANIDINE HCL 06822579058 Active Vishal Hui MD Active CLINDAMYCIN HCL 150 MG CAPS 1 four times a day CLINDAMYCIN HCL 38550923261 No Longer Active Neeraj Collins MD Active KEFLEX 500 MG ORAL CAPS 1 cap QID by mouth CEPHALEXIN 11065575696 No Longer Active Neeraj Collins MD Active DIFLUCAN 150 MG TABS 1 pill every other day x 2 doses FLUCONAZOLE 68289663477 No Longer Active Sahara Rodriguez MD PhD Active MELATONIN 3 MG CAPS 2 po q hs MELATONIN 55536970466 No Longer Active Sahara Rodriguez MD PhD Active MULTIVITAMINS CAPS Take one by mouth daily MULTIPLE VITAMIN 72660865103 No Longer Active Sahara Rodriguez MD PhD Active BACTRIM DS 800-160 MG TAB 1 tab by mouth twice daily TRIMETHOPRIM-SULFAMETHOXAZOLE 75184300488 No Longer Active Sahara Rodriguez MD PhD Active [facility] PROBIOTIC ORAL CHEW 2 daily po PROBIOTIC PRODUCT 34343059056 No Longer Active Sahara Rodriguez MD PhD Active BACTRIM DS 800-160 MG TABS 1 po BID x 7 days SULFAMETHOXAZOLE-TRIMETHOPRIM 88228236066 No Longer Active Vishal Hui MD Active CHANTIX STARTING MONTH EARNEST 0.5 MG X 11 & 1 MG X 42 TABS 0.5mg daily for 3 days , then 0.5mg BID for 4 days, then 1mg BID VARENICLINE TARTRATE 84948268025 No Longer Active TAMARA Gray Active VERAPAMIL HCL CR 120 MG TAB CR 1 po bid VERAPAMIL HCL 94771682325 No Longer Active Vishal Hui MD Active METOPROLOL SUCCINATE 50 MG TB24 1 tablet by mouth daily METOPROLOL SUCCINATE 55630383564 No Longer Active Vishal Hui MD Active SAPHRIS 10 MG SUBL 1 tab po bid ASENAPINE MALEATE 24394480302 No Longer Active Vishal Hui MD Active LISINOPRIL 20 MG TABS 1 tab po qd LISINOPRIL 10667930224 No Longer Active Vishal Hui MD Active LATUDA 20 MG TABS Take one by mouth daily LURASIDONE HCL 94546321920 No Longer Active Vishal Hui MD Active TRAZODONE HCL 50 MG TABS 1/2 tab po qd prn for anxiety TRAZODONE HCL 65813310139 No Longer Active Vishal Hui MD Active OMEPRAZOLE 20 MG TBEC 1 po q a.m. 30min prior to first food intake OMEPRAZOLE 93324682044 Active Vishal Hui MD Active RANITIDINE HCL 150 MG CAPS 1 twice a day RANITIDINE HCL 95771160352 Active Jillina Frazell CASE COORDINATOR Active LINZESS 290 MCG CAPS Take one by mouth daily LINACLOTIDE 27757697503 No Longer Active Vishal Hui MD Active SAPHRIS 5 MG SUBL 1 tab po qd ASENAPINE MALEATE 73082155354 No Longer Active Vishal Hui MD Active ZALEPLON 10 MG CAPS 1 cap po every other night ZALEPLON 44384689407 No Longer Active Vishal Hui MD Active LYRICA 50 MG CAPS 1 tab po TID PREGABALIN 01304464870 No Longer Active Vishal Hui MD Active LORATADINE 10 MG TABS 1 tab po qd LORATADINE 14697878769 No Longer Active Vishal Hui MD Active VERAPAMIL HCL ER 180 MG CR-TABS 1 tab po bid VERAPAMIL HCL 88761586037 No Longer Active Vishal Hui MD Active MIRALAX POWD 1 capfull once daily POLYETHYLENE GLYCOL 3350 45027284164 No Longer Active Vishal Hui MD Active PREDNISONE 20 MG TABS 1 tab po qd PREDNISONE 11714504641 No Longer Active Renzo Thornton DO Active LEVOFLOXACIN 500 MG TABS 1 tab po qd LEVOFLOXACIN 76354768680 No Longer Active Renzo Thornton DO Active BUSPIRONE HCL 15 MG TABS 1 tab po TID BUSPIRONE HCL 96724018566 No Longer Active Renzo Thornton DO Active BENZTROPINE MESYLATE 1 MG TABS 1 tab po qd BENZTROPINE MESYLATE 36298846632 No Longer Active Renzo Thornton DO Active ATENOLOL 25 MG TABS 1 tab po qd ATENOLOL 01923398141 No Longer Active Renzo Thornton DO Active ESCITALOPRAM OXALATE 20 MG TABS 1 tab po qd ESCITALOPRAM OXALATE 90463849412 No Longer Active Renzo Thornton DO Active ADVAIR DISKUS 250-50 MCG/DOSE AEPB 1 puff BID FLUTICASONE-SALMETEROL 15150210308 No Longer Active Renzo Thornton DO Active PREDNISONE 20 MG TAB 2 tabs daily for 3 days, 1 tab daily for 3 days, 1/2 tab daily for 2 days PREDNISONE 80392114495 No Longer Active Vishal Hui MD Active CEFDINIR 300 MG CAPS by mouth twice a day CEFDINIR 24634235712 No Longer Active Vishal Hui MD Active LANSOPRAZOLE 30 MG CPDR 1 cap po qd LANSOPRAZOLE 00127344605 No Longer Active Vishal Hui MD Active BACLOFEN 20 MG TABS 1 tab po tid BACLOFEN 15499094060 No Longer Active Vishal Hui MD Active ADVAIR DISKUS 250-50 MCG/DOSE AEPB 1 puff BID ADVAIR DISKUS 250-50 MCG/DOSE AEPB FLUTICASONE-SALMETEROL Inactive ESCITALOPRAM OXALATE 20 MG TABS 1 tab po qd ESCITALOPRAM OXALATE 20 MG TABS 055459 ESCITALOPRAM OXALATE Inactive ATENOLOL 25 MG TABS 1 tab po qd ATENOLOL 25 MG TABS 444317 ATENOLOL Inactive BENZTROPINE MESYLATE 1 MG TABS 1 tab po qd BENZTROPINE MESYLATE 1 MG TABS 475322 BENZTROPINE MESYLATE Inactive BUSPIRONE HCL 15 MG TABS 1 tab po TID BUSPIRONE HCL 15 MG TABS 411942 BUSPIRONE HCL Inactive LEVOFLOXACIN 500 MG TABS 1 tab po qd LEVOFLOXACIN 500 MG TABS 072939 LEVOFLOXACIN Inactive PREDNISONE 20 MG TABS 1 tab po qd PREDNISONE 20 MG TABS 840906 PREDNISONE Inactive MIRALAX POWD 1 capfull once daily MIRALAX POWD 614650 POLYETHYLENE GLYCOL 3350 Inactive VERAPAMIL HCL ER 180 MG CR-TABS 1 tab po bid VERAPAMIL HCL ER 180 MG CR-TABS VERAPAMIL HCL Inactive LORATADINE 10 MG TABS 1 tab po qd LORATADINE 10 MG TABS 290116 LORATADINE Inactive LYRICA 50 MG CAPS 1 tab po TID LYRICA 50 MG CAPS PREGABALIN Inactive ZALEPLON 10 MG CAPS 1 cap po every other night ZALEPLON 10 MG CAPS 564128 ZALEPLON Inactive SAPHRIS 5 MG SUBL 1 tab po qd SAPHRIS 5 MG SUBL ASENAPINE MALEATE Inactive TRAZODONE HCL 50 MG TABS 1/2 tab po qd prn for anxiety TRAZODONE HCL 50 MG TABS 721980 TRAZODONE HCL Inactive LATUDA 20 MG TABS Take one by mouth daily LATUDA 20 MG TABS LURASIDONE HCL Inactive LISINOPRIL 20 MG TABS 1 tab po qd LISINOPRIL 20 MG TABS 313006 LISINOPRIL Inactive SAPHRIS 10 MG SUBL 1 [...] twice daily BACTRIM DS 800-160 MG TAB 166779 TRIMETHOPRIM-SULFAMETHOXAZOLE Inactive MULTIVITAMINS CAPS Take one by mouth daily MULTIVITAMINS CAPS MULTIPLE VITAMIN Inactive MELATONIN 3 MG CAPS 2 po q hs MELATONIN 3 MG CAPS 896254 MELATONIN Inactive KEFLEX 500 MG ORAL CAPS 1 cap QID by mouth KEFLEX 500 MG ORAL CAPS 091325 CEPHALEXIN Inactive CLINDAMYCIN HCL 150 MG CAPS 1 four times a day CLINDAMYCIN HCL 150 MG CAPS 409341 CLINDAMYCIN HCL Inactive DIFLUCAN 150 MG TAB 1 tablet by mouth daily DIFLUCAN 150 MG TAB 565488 FLUCONAZOLE Inactive PROZAC 20 MG CAP Take one by mouth daily PROZAC 20 MG CAP 178081 FLUOXETINE HCL Inactive IBUPROFEN 600 MG TAB 1 po TID PRN IBUPROFEN 600 MG TAB IBUPROFEN Inactive VYVANSE 40 MG CAPS 1 daily, VYVANSE 40 MG CAPS LISDEXAMFETAMINE DIMESYLATE Inactive TRAZODONE HCL 100 MG TAB take 1 at bedtime TRAZODONE HCL 100 MG TAB 388208 TRAZODONE HCL Inactive AMITRIPTYLINE HCL 100 MG TAB one at hs AMITRIPTYLINE HCL 100 MG TAB 240274 AMITRIPTYLINE HCL Inactive AMLODIPINE BESYLATE 5 MG TABS 1 tablet by mouth daily AMLODIPINE BESYLATE 5 MG TABS 895824 AMLODIPINE BESYLATE Inactive LATUDA 80 MG TABS Take one by mouth daily LATUDA 80 MG TABS LURASIDONE HCL Inactive SAPHRIS 5 MG SUBL 1 po bid SAPHRIS 5 MG SUBL ASENAPINE MALEATE Inactive PREDNISONE 20 MG TAB 2 tabs daily for 4 days, 1 tab daily for 4 days, 1/2 tab daily for 4 days PREDNISONE 20 MG TAB 005060 PREDNISONE Inactive AMBIEN 5 MG ORAL TABS 1 tab at bedtime AMBIEN 5 MG ORAL TABS 856866 ZOLPIDEM TARTRATE Inactive PROZAC 20 MG ORAL CAPS 1 tab daily PROZAC 20 MG ORAL CAPS 670162 FLUOXETINE HCL Inactive ABILIFY 15 MG ORAL TABS 1 tab daily ABILIFY 15 MG ORAL TABS 563302 ARIPIPRAZOLE Inactive METOPROLOL TARTRATE 50 MG TAB 1 po bid METOPROLOL TARTRATE 50 MG TAB 759730 METOPROLOL TARTRATE Inactive TRAMADOL HCL 50 MG TABS 1-2 po TID PRN Pain TRAMADOL HCL 50 MG TABS 086534 TRAMADOL HCL Inactive PIROXICAM 20 MG CAPS 1 cap po qd PRN Pain PIROXICAM 20 MG CAPS 580338 PIROXICAM Inactive MINIPRESS 2 MG CAPS 4 cap po at night MINIPRESS 2 MG CAPS 666140 PRAZOSIN HCL Inactive MIRALAX PACK 1 po qd PRN Constipation MIRALAX PACK 234578 POLYETHYLENE GLYCOL 3350 Inactive METOPROLOL TARTRATE 25 MG ORAL TABS 1/2 tablet twice daily for heart rate and blood pressure METOPROLOL TARTRATE 25 MG ORAL TABS 652831 METOPROLOL TARTRATE Inactive VALIUM 5 MG TAB Take 1-2 tablets daily VALIUM 5 MG TAB 684891 DIAZEPAM Inactive FLAGYL 500 MG TAB 1 tablet by mouth bid FLAGYL 500 MG TAB 885226 METRONIDAZOLE Inactive DICLOFENAC POTASSIUM TABS Take 1 tablet twice a day (pt. is not sure of the dose.) DICLOFENAC POTASSIUM TABS DICLOFENAC POTASSIUM TABS Inactive CEFDINIR 300 MG CAPS by mouth twice a day CEFDINIR 300 MG CAPS 114444 CEFDINIR Inactive PREDNISONE 20 MG TAB 2 tabs daily for 3 days, 1 tab daily for 3 days, 1/2 tab daily for 2 days PREDNISONE 20 MG TAB 927974 PREDNISONE Inactive BACTRIM DS 800-160 MG TABS 1 po BID x 7 days BACTRIM DS 800-160 MG TABS 19820521 SULFAMETHOXAZOLE-TRIMETHOPRIM Inactive DIFLUCAN 150 MG TABS 1 pill every other day x 2 doses DIFLUCAN 150 MG TABS 083008 FLUCONAZOLE Inactive BACTRIM DS 800-160 MG TABS 1 pill by mouth twice daily BACTRIM DS 800-160 MG TABS 976769 SULFAMETHOXAZOLE-TRIMETHOPRIM Inactive KEFLEX 500 MG CAP 1 po TID x 10 days KEFLEX 500 MG CAP 526503 CEPHALEXIN Inactive Advance Directives Directive Description Start [...] % 11.6-14.8 platelet count 394 10^3/MM^3 10*3/mm3 471-444 5725/12/22 erythrocyte (RBC) count 4.19 10^6/MM^3 10*6/mm3 4.04-5.48 [...] Panel - Chemistry sodium, serum 139 mmol/L 307-398 8366/12/03 carbon dioxide, venous blood 28.5 mmol/L 21.0-32.0 [...] 5.5 % 4.3-6.0 cholesterol, serum 159 mg/dL 281-953 2479/12/03 triglyceride, serum, fasting 118 mg/dL 30-200 HDL [...] Panel - Chemistry sodium, serum 139 mmol/L 810-024 0410/12/22 creatinine, serum 0.90 mg/dL 0.55-1.30 alanine aminotransferase (SGPT), serum 38 U/L 12-78 aspartate aminotransferase (SGOT), serum 19 U/L 15-37 calcium, serum 8.6 mg/dL 8.5-10.1 bilirubin, serum, total 0.30 mg/dL 0.00-1.00 carbon dioxide, venous blood 26.8 mmol/L 21.0-32.0 potassium, serum 4.2 mmol/L 3.5-5.2 chloride, serum 103 mmol/L 98-107 blood glucose 115 mg/dL 65-110 urea nitrogen, blood 20 mg/dL 7-18 sodium, serum 139 mmol/L 113-904 9165/01/11 carbon dioxide, venous blood 26.6 mmol/L 21.0-32.0 potassium, serum 4.1 mmol/L 3.5-5.2 chloride, serum 100 mmol/L 98-107 blood glucose 86 mg/dL 65-110 urea nitrogen, blood 16 mg/dL 7-18 creatinine, serum 1.00 mg/dL 0.55-1.30 alanine aminotransferase (SGPT), serum 48 U/L aspartate aminotransferase (SGOT), serum 17 U/L 15-37 calcium, serum 9.1 mg/dL 8.5-10.1 bilirubin, serum, total 0.40 mg/dL 0.00-1.00 sodium, serum 142 mmol/L 337-497 9860/06/08 carbon dioxide, venous blood 27.6 mmol/L 21.0-32.0 potassium, serum 4.0 mmol/L 3.5-5.2 chloride, serum 105 mmol/L 98-107 blood glucose 95 mg/dL 65-110 urea nitrogen, blood 8 mg/dL 7-18 creatinine, serum 0.75 mg/dL 0.55-1.30 alanine aminotransferase (SGPT), serum 49 U/L aspartate aminotransferase (SGOT), serum 28 U/L 15-37 calcium, serum 9.4 mg/dL 8.5-10.1 bilirubin, serum, total 0.30 mg/dL 0.00-1.00 sodium, serum 140 mmol/L 555-997 6273/08/08 carbon dioxide, venous blood 33.7 mmol/L 21.0-32.0 [...] Rate - Chemistry sodium, serum 139 mmol/L 525-247 8325/12/11 creatinine, serum 0.96 mg/dL 0.55-1.30 alanine aminotransferase [...] - Urinalysis glucose, urine, semiquantitative Negative Negative urine color [...] mg/dL Encounters Code Encounter Date Provider Facility CPT-75708 Level 3 Est. Patient 13:29:16 CDT Vishal Hui MD [facility] CPT-49839 Level 3 Est. Patient 14:27:52 CDT Neeraj Collins MD [facility] CPT-74463 Level 3 Est. Patient 08:56:03 CDT Luigi Martínez [facility] CPT-59267 Level 4 Est. Patient 12:11:48 CDT Fabiola Johnson [facility] CPT-74193 Level 3 New Patient 16:53:37 CDT Albert Caldera MD [facility] CPT-96903 Level 3 Est. Patient 11:25:49 CDT Renzo W Norberto [facility] CPT-58732 Level 3 Est. Patient 15:22:01 CDT Ahmet Carbajal MD [facility] CPT-50668 Level 4 Est. Patient 09:00:51 [employer] Visahl Hui MD [facility] CPT-43024 Level 3 Est. Patient 11:37:33 [employer] Vishal Hui MD [facility] CPT-23658 Level 3 Est. Patient 08:41:09 [employer] Vishal Hui MD [facility] CPT-94969 Level 4 Est. Patient 10:19:35 [employer] Vishal Hui MD [facility] CPT-31548 Level 3 Est. Patient 13:35:45 CDT Vishal Hui MD [facility] CPT-96400 Level 4 Est. Patient 10:08:37 CDT Vishal Hui MD [facility] CPT-46519 Level 3 Est. Patient 11:22:10 CDT Vishal Hui MD [facility] CPT-96390 Level 3 Est. Patient 11:03:32 CDT Sahara Rodriguez MD PhD [facility]-77557 Level 3 Est. Patient 09:41:35 CDT Vishal Hui MD [facility] CPT-33002 Level 3 Est. Patient 12:00:41 CDT Neeraj Collins MD [facility] CPT-03670 Level 3 Est. Patient 09:16:24 CDT Vishal Hui MD [facility] CPT-69087 Level 4 Est. Patient 13:59:09 CDT Neeraj Collins MD [facility] CPT-57923 Level 3 Est. Patient 15:19:43 CDT Renzo Thornton DO [facility] CPT-89548 Level 3 Est. Patient 18:10:26 CDT Sahara Rodriguez MD PhD [facility] CPT-48993 Level 3 Est. Patient 14:49:50 CDT Vishal Hui MD [facility] CPT-72713 Level 4 Est. Patient 18:41:46 CDT Neeraj Collins MD [facility] CPT-36082 Level 4 Est. Patient 09:18:38 [employer] Vishal Hui MD [facility] CPT-63553 Level 3 Est. Patient 14:43:55 [employer] Vishal Hui MD [facility] CPT-38643 Level 3 Est. Patient 15:26:33 [employer] Sahara Rodriguez MD PhD [facility] CPT-50227 Level 3 Est. Patient 10:32:14 [employer] Vishal Hui MD [facility] CPT-98035 Level 3 Est. Patient 15:12:52 [employer] Vishal Hui MD [facility] CPT-24630 Level 4 Est. Patient 09:19:27 CDT Vishal Hui MD [facility] CPT-10126 Level 3 Est. Patient 15:53:00 CDT Renzo Thornton [facility] CPT-29270 Level 3 Est. Patient 15:50:30 CDT Renzo Thornton [facility] CPT-29249 Level 3 Est. Patient 16:55:24 CDT Vishal Hui MD [facility] Procedures Code Procedure Name Date Entry Date Standard Description CPT-45464 Abx/Therapy Injection 13:29:56 CDT CPT-49302 Abx/Therapy Injection 08:36:16 CDT CPT-47245 Wet Mount - LAB USE ONLY 17:44:58 CDT CPT-28478 UA w micro - LAB USE ONLY 17:44:58 CDT CPT-39557 CMP - LAB USE ONLY 17:44:58 CDT CPT-33966 Venipuncture Draw Fee 17:44:58 CDT CPT-55359 Cervical Min 4V - XRAY USE ONLY 09:01:40 CDT CPT-05126 Chest 2V Frontal and Lat - XRAY USE ONLY 11:06:31 CDT CPT-08091 EKG Trac and Interp - XRAY USE ONLY 11:31:43 CDT 08/26 CPT-J3420 Vitamin B12 1000mcg (Cyanocobalamin) 08:10:26 [employer]PLICATION [employer]NSHIP 04/12 CPT-79880 Abx/Therapy Injection 08:10:26 [employer]PLICATION [employer]NSHIP CPT-G0438 Initial Annual Wellness Exam 19:01:01 [employer]PLICATION [employer]NSH[employer] CPT-J3420 Vitamin B12 1000mcg (Cyanocobalamin) 16:57:46 CDT 08/14 CPT-11586 Recombivax HB Injection Suspension 5 MCG/0.5ML 08:37:50 [employer]PLICATION [employer]NSHIP CPT-61966 Immunization Single Admin 08:37:50 [employer]PLICATION [employer]NSH[employer] CPT-J3420 Vitamin B12 1000mcg (Cyanocobalamin) 08:32:16 [employer]PLICATION [employer]NSH[employer] 03/11 CPT-14250 Abx/Therapy Injection 08:32:16 [employer]PLICATION INTERNSHIP CPT-63260 Chest 2V Frontal and Lat 11:46:38 [employer]PLICATION [employer]NS[employer] CPT-63659 Venipuncture Draw Fee 09:12:45 [employer]PLICATION [employer]NSH[employer] CPT-J3420 Vitamin B12 1000mcg (Cyanocobalamin) 08:50:15 [employer]NS[employer] 02/08 CPT-53009 Abx/Therapy Injection 08:50:15 APPLICATION INTERNSHIP CPT-Cryo Cryotherapy 10:19:35 [employer]PLICATION INTERNSHIP CPT-000 Give Appropriate Flu Vaccine 09:22:16 CDT CPT-J3420 Vitamin B12 1000mcg (Cyanocobalamin) 19:08:57 CDT 01/11 CPT-78600 Abx/Therapy Injection 19:08:57 CDT CPT-J3420 Vitamin B12 1000mcg (Cyanocobalamin) 08:19:08 CDT 12/11 CPT-68584 Abx/Therapy Injection 08:19:08 CDT CPT-J3420 Vitamin B12 1000mcg (Cyanocobalamin) 14:48:00 CDT 11/09 CPT-33421 Abx/Therapy Injection 14:47:59 CDT CPT-J3420 Vitamin B12 1000mcg (Cyanocobalamin) 08:34:04 CDT 10/09 CPT-88236 Abx/Therapy Injection 08:34:04 CDT CPT-J3420 Vitamin B12 1000mcg (Cyanocobalamin) 09:18:52 CDT 09/11 CPT-88733 Abx/Therapy Injection 09:18:52 CDT CPT-J3420 Vitamin B12 1000mcg (Cyanocobalamin) 08:35:44 CDT 09/04 CPT-60097 Abx/Therapy Injection 08:35:44 CDT CPT-19643 Immunization Single Admin 11:07:16 CDT CPT-23955 Hepatitis B adult IM 11:07:16 CDT CPT-J3420 Vitamin B12 1000mcg (Cyanocobalamin) 11:00:49 CDT 08/28 CPT-J1040 Depo Medrol 80 mg (Methyl Prednisolone Acetate) 11:00: 49 CDT CPT-48479 Abx/Therapy Injection 11:00:49 CDT CPT-J1040 Depo Medrol 80 mg (Methyl Prednisolone Acetate) 09:16: 23 CDT CPT-J3420 Vitamin B12 1000mcg (Cyanocobalamin) 08:27:05 CDT 08/20 CPT-25825 Abx/Therapy Injection 08:27:05 CDT CPT-16787 Recombivax HB Injection Suspension 5 MCG/0.5ML 10:00:41 CDT CPT-53295 Administration single or combination vaccine inc oral 10 :00:41 CDT CPT-50600 Sono transvag pelvis non OB uterus ovaries cervix 16:36: 57 CDT CPT-63964 LS spine comp w obliq 09:50:55 [employer] CPT-19121 Abd compl w upright 09:50:55 [employer]NS[employer] CPT-J1100 Decadron 4mg (Dexamethasone) 15:51:24 [employer]PLICATION [employer]NSH[employer] CPT-J1030 Depo Medrol 40 mg (Methyl Prednisolone Acetate) 15:51: 24 [employer] CPT-37430 Abx/Therapy Injection 15:51:24 [employer]PLICATION [employer]NSH[employer] CPT-J1100 Decadron 4mg (Dexamethasone) 15:26:33 [employer]NSH[employer] CPT-J1030 Depo Medrol 40 mg (Methyl Prednisolone Acetate) 15:26: 33 [employer]PLICATION [employer]NSH[employer] CPT-54600 Sono retroperitoneal complete kidneys and bladder 17:15: 30 CDT CPT-73602 Abd compl w upright 16:09:25 CDT CPT-J1100 Decadron 8mg (Dexamethasone) 17:07:57 CDT CPT-90265 Abx/Therapy Injection 17:07:57 CDT CPT-J1100 Decadron 8mg (Dexamethasone) 16:55:24 CDT CPT-51656 Chest 2V Frontal and Lat 16:32:44 CDT
--- OUTSIDE RECORDS SUMMARY | 2016-11-04 14:33 | XMS REPORT | Clinical Summary ---
Author Author Admin, QIE Organization [facility] Address Unknown Phone Unavailable Allergies, Adverse Reactions, [...] specified cardiac dysrhythmias Schizoaffective disorder 295.70 Active Vsihal Hui MD Schizoaffective disorder, unspecified Irritable bowel [...] Vishal Hui MD Other abnormal blood chemistry Pneumonia, organism unspecified ICD-486 Inactive Vishal Hui [...] Status Provider Patient Instruction DIFLUCAN 150 MG TAB 1 tablet by mouth daily FLUCONAZOLE 71237568805 No Longer Active Vishal Hui MD Active TIZANIDINE HCL 4 MG TABS 1 po q6hr PRN Muscle Spasm/Back Pain TIZANIDINE HCL 09368261315 Active Vishal Hui MD Active CLINDAMYCIN HCL 150 MG CAPS 1 four times a day CLINDAMYCIN HCL 62287432852 No Longer Active Neeraj Collins MD Active KEFLEX 500 MG ORAL CAPS 1 cap QID by mouth CEPHALEXIN 25463705187 No Longer Active Neeraj Collins MD Active DIFLUCAN 150 MG TABS 1 pill every other day x 2 doses FLUCONAZOLE 52227752210 No Longer Active Sahara Rodriguez MD PhD Active MELATONIN 3 MG CAPS 2 po q hs MELATONIN 45308201558 No Longer Active Sahara Rodriguez MD PhD Active MULTIVITAMINS CAPS Take one by mouth daily MULTIPLE VITAMIN 53051043926 No Longer Active Sahara Rodriguez MD PhD Active BACTRIM DS 800-160 MG TAB 1 tab by mouth twice daily TRIMETHOPRIM-SULFAMETHOXAZOLE 60326013620 No Longer Active Sahara Rodriguez MD PhD Active [facility] PROBIOTIC ORAL CHEW 2 daily po PROBIOTIC PRODUCT 17274321028 No Longer Active Sahara Rodriguez MD PhD Active IBUPROFEN 600 MG TAB 1 po TID PRN IBUPROFEN 68759519128 Active Luigi Martínez TILE DESIGNER Active BACTRIM DS 800-160 MG TABS 1 po BID x 7 days SULFAMETHOXAZOLE-TRIMETHOPRIM 05540723164 No Longer Active Vishal Hui MD Active CHANTIX STARTING MONTH EARNEST 0.5 MG X 11 & 1 MG X 42 TABS 0.5mg daily for 3 days , then 0.5mg BID for 4 days, then 1mg BID VARENICLINE TARTRATE 46065311879 No Longer Active TAMARA Gray Active METOPROLOL TARTRATE 50 MG TAB 1 po bid METOPROLOL TARTRATE 65120438845 Active Vishal Hui MD Active TRAZODONE HCL 100 MG TAB take 1 at bedtime TRAZODONE HCL 11348539430 Active Vishal Hui MD Active AMLODIPINE BESYLATE 5 MG TABS 1 tablet by mouth daily AMLODIPINE BESYLATE 13180200992 Active Vishal Hui MD Active VERAPAMIL HCL CR 120 MG TAB CR 1 po bid VERAPAMIL HCL 09042453572 No Longer Active Vishal Hui MD Active METOPROLOL SUCCINATE 50 MG TB24 1 tablet by mouth daily METOPROLOL SUCCINATE 83537145327 No Longer Active Vishal Hui MD Active TRAMADOL HCL 50 MG TABS 1-2 po TID PRN Pain TRAMADOL HCL 35765219338 Active Ahmet Carbajal MD Active SAPHRIS 5 MG SUBL 1 po bid ASENAPINE MALEATE 79201638150 Active Vishal Hui MD Active SAPHRIS 10 MG SUBL 1 tab po bid ASENAPINE MALEATE 65182327369 No Longer Active Vishal Hui MD Active LISINOPRIL 20 MG TABS 1 tab po qd LISINOPRIL 42596531877 No Longer Active Vishal Hui MD Active BENADRYL 25 MG CAP 2 po tid prn anxiety DIPHENHYDRAMINE HCL 67889926947 Active Vishal Hui MD Active LATUDA 80 MG TABS Take one by mouth daily LURASIDONE HCL 43589039876 Active Vishal Hui MD Active LATUDA 20 MG TABS Take one by mouth daily LURASIDONE HCL 68942859387 No Longer Active Vishal Hui MD Active TRAZODONE HCL 50 MG TABS 1/2 tab po qd prn for anxiety TRAZODONE HCL 49443058089 No Longer Active Vishal Hui MD Active PIROXICAM 20 MG CAPS 1 cap po qd PRN Pain PIROXICAM 69637767479 Active Vishal Hui MD Active OMEPRAZOLE 20 MG TBEC 1 po q a.m. 30min prior to first food intake OMEPRAZOLE 95751222803 Active Vishal Hui MD Active RANITIDINE HCL 150 MG CAPS 1 twice a day RANITIDINE HCL 56926622491 Active Vishal Hui MD Active PROZAC 20 MG CAP Take one by mouth daily FLUOXETINE HCL 88630710968 Active Vishal Hui MD Active LINZESS 290 MCG CAPS Take one by mouth daily LINACLOTIDE 30012033823 Active Vishal Hui MD Active SAPHRIS 5 MG SUBL 1 tab po qd ASENAPINE MALEATE 75258572032 No Longer Active Vishal Hui MD Active ZALEPLON 10 MG CAPS 1 cap po every other night ZALEPLON 55078016059 No Longer Active Vishal Hui MD Active LYRICA 50 MG CAPS 1 tab po TID PREGABALIN 32493272327 No Longer Active Vishal Hui MD Active LORATADINE 10 MG TABS 1 tab po qd LORATADINE 06485387413 No Longer Active Vishal Hui MD Active VERAPAMIL HCL ER 180 MG CR-TABS 1 tab po bid VERAPAMIL HCL 13773234010 No Longer Active Vishal Hui MD Active MIRALAX POWD 1 capfull once daily POLYETHYLENE GLYCOL 3350 50234250180 No Longer Active Vishal Hui MD Active PREDNISONE 20 MG TABS 1 tab po qd PREDNISONE 15397605204 No Longer Active Renzo Thornton DO Active LEVOFLOXACIN 500 MG TABS 1 tab po qd LEVOFLOXACIN 82951447918 No Longer Active Renzo Thornton DO Active BUSPIRONE HCL 15 MG TABS 1 tab po TID BUSPIRONE HCL 79416418580 No Longer Active Renzo Thornton DO Active BENZTROPINE MESYLATE 1 MG TABS 1 tab po qd BENZTROPINE MESYLATE 20923021590 No Longer Active Renzo Thornton DO Active ATENOLOL 25 MG TABS 1 tab po qd ATENOLOL 72678862934 No Longer Active Renzo Thornton DO Active ESCITALOPRAM OXALATE 20 MG TABS 1 tab po qd ESCITALOPRAM OXALATE 92915950583 No Longer Active Renzo Thornton DO Active ADVAIR DISKUS 250-50 MCG/DOSE AEPB 1 puff BID FLUTICASONE-SALMETEROL 94208338356 No Longer Active Renzo Thornton DO Active PREDNISONE 20 MG TAB 2 tabs daily for 3 days, 1 tab daily for 3 days, 1/2 tab daily for 2 days PREDNISONE 59374356753 No Longer Active Vishal Hui MD Active CEFDINIR 300 MG CAPS by mouth twice a day CEFDINIR 16232445564 No Longer Active Vishal Hui MD Active LANSOPRAZOLE 30 MG CPDR 1 cap po qd LANSOPRAZOLE 18860305907 No Longer Active Vishal Hui MD Active TOPAMAX 25 MG TABS 1 tab po bid TOPIRAMATE 67527117343 Active Vishal Hui MD Active MINIPRESS 2 MG CAPS 1 cap po at night PRAZOSIN HCL 77874808839 Active Vishal Hui MD Active BACLOFEN 20 MG TABS 1 tab po tid BACLOFEN 95143992136 No Longer Active Vishal Hui MD Active ADVAIR DISKUS 250-50 MCG/DOSE AEPB 1 puff BID ADVAIR DISKUS 250-50 MCG/DOSE AEPB FLUTICASONE-SALMETEROL Inactive ESCITALOPRAM OXALATE 20 MG TABS 1 tab po qd ESCITALOPRAM OXALATE 20 MG TABS 641945 ESCITALOPRAM OXALATE Inactive ATENOLOL 25 MG TABS 1 tab po qd ATENOLOL 25 MG TABS 589597 ATENOLOL Inactive BENZTROPINE MESYLATE 1 MG TABS 1 tab po qd BENZTROPINE MESYLATE 1 MG TABS 798437 BENZTROPINE MESYLATE Inactive BUSPIRONE HCL 15 MG TABS 1 tab po TID BUSPIRONE HCL 15 MG TABS 299173 BUSPIRONE HCL Inactive LEVOFLOXACIN 500 MG TABS 1 tab po qd LEVOFLOXACIN 500 MG TABS 274181 LEVOFLOXACIN Inactive PREDNISONE 20 MG TABS 1 tab po qd PREDNISONE 20 MG TABS 701710 PREDNISONE Inactive MIRALAX POWD 1 capfull once daily MIRALAX POWD 573731 POLYETHYLENE GLYCOL 3350 Inactive VERAPAMIL HCL ER 180 MG CR-TABS 1 tab po bid VERAPAMIL HCL ER 180 MG CR-TABS VERAPAMIL HCL Inactive LORATADINE 10 MG TABS 1 tab po qd LORATADINE 10 MG TABS 496653 LORATADINE Inactive LYRICA 50 MG CAPS 1 tab po TID LYRICA 50 MG CAPS PREGABALIN Inactive ZALEPLON 10 MG CAPS 1 cap po every other night ZALEPLON 10 MG CAPS 605361 ZALEPLON Inactive SAPHRIS 5 MG SUBL 1 tab po qd SAPHRIS 5 MG SUBL ASENAPINE MALEATE Inactive TRAZODONE HCL 50 MG TABS 1/2 tab po qd prn for anxiety TRAZODONE HCL 50 MG TABS 933959 TRAZODONE HCL Inactive LATUDA 20 MG TABS Take one by mouth daily LATUDA 20 MG TABS LURASIDONE HCL Inactive LISINOPRIL 20 MG TABS 1 tab po qd LISINOPRIL 20 MG TABS 467832 LISINOPRIL Inactive SAPHRIS 10 MG SUBL 1 [...] po q hs MELATONIN 3 MG CAPS 910640 MELATONIN Inactive KEFLEX 500 MG ORAL CAPS 1 cap QID by mouth KEFLEX 500 MG ORAL CAPS 838931 CEPHALEXIN Inactive CLINDAMYCIN HCL 150 MG CAPS 1 four times a day CLINDAMYCIN HCL 150 MG CAPS 929463 CLINDAMYCIN HCL Inactive DIFLUCAN 150 MG TAB 1 tablet by mouth daily DIFLUCAN 150 MG TAB 19751126 FLUCONAZOLE Inactive CEFDINIR 300 MG CAPS by mouth twice a day CEFDINIR 300 MG CAPS 166906 CEFDINIR Inactive PREDNISONE 20 MG TAB 2 tabs daily for 3 days, 1 tab daily for 3 days, 1/2 tab daily for 2 days PREDNISONE 20 MG TAB 630506 PREDNISONE Inactive BACTRIM DS 800-160 MG TABS 1 po BID x 7 days BACTRIM DS 800-160 MG TABS SULFAMETHOXAZOLE-TRIMETHOPRIM Inactive DIFLUCAN 150 MG TABS 1 pill every other day x 2 doses DIFLUCAN 150 MG TABS 19751126 FLUCONAZOLE Inactive Vital Signs Date Name Value [...] ... - Chemistry sodium, serum 140 mmol/L 211-448 6751/05/28 potassium, serum 4.2 mmol/L 3.5-5.2 chloride, serum [...] Panel - Chemistry sodium, serum 141 mmol/L [phone] potassium, serum 4.3 mmol/L 3.5-5.2 chloride, serum [...] Panel - Chemistry sodium, serum 139 mmol/L 038-950 0939/12/31 potassium, serum 4.8 mmol/L 3.5-5.2 chloride, serum 106 mmol/L 98-107 carbon dioxide, venous blood 24.3 mmol/L 21.0-32.0 blood glucose 90 mg/dL 65-110 urea nitrogen, blood 16 mg/dL 7-18 creatinine, serum 1.00 mg/dL 0.60-1.30 alanine aminotransferase (SGPT), serum 41 U/L 12-78 aspartate aminotransferase (SGOT), serum 17 U/L 15-37 calcium, serum 8.6 mg/dL 8.5-10.1 bilirubin, serum, total 0.30 mg/dL 0.00-1.00 cholesterol, serum 108 mg/dL 632-404 3740/12/31 triglyceride, serum, fasting 120 mg/dL 30-200 HDL cholesterol, serum 28 mg/dL 32-96 LDL cholesterol, serum 56 mg/dL 0-130 Lab Report: HGBA1C - Chemistry hemoglobin A1C, blood, as % of total hemoglobin 5.3 % 4.3-6.0 Lab Report: MICROALBUMIN - Chemistry albumin/creatinine ratio, urine < 30 mg/g mg/g{creat} 0-29 Lab Report: MICROALBUMIN - Lab microalbumin, urine 10 0-19 Lab Report: UADIP W/MICRO, AUTO, [facility] [place] - Chemistry protein, total urine random Negative mg/dL Negative human chorionic gonadotropin, urine, qualitative (urine test) Negative Negative RBC, urine, dipstick Negative Negative Lab Report: UADIP W/MICRO, AUTO, [facility] - Urinalysis urobilinogen, urine, semiquantitative (dipstick) 0.2 Normal leukocyte esterase, urine, by dipstick Negative Negative nitrite, urine, semiquantitative Negative Negative glucose, urine, semiquantitative Negative Negative ketones, urine, by test strip Negative Negative bilirubin, urine Negative Negative urine color Yellow Colorless;Lightyellow;Straw;Yellow appearance, urine Clear Clear specific gravity, urine 1.025 1.000-1.030 pH, urine, semiquantitative 7.0 5.0-8.5 Lab Report: Varicella-Zoater Inga IgG,IgM/96905, HEP Be Antibody/556, RUB ... - Serology rubella antibody, serum, IgG 2.88 Encounters Code Encounter Date Provider Facility [facility]36978 Level 3 Est. Patient 09:41:35 CDT Vishal Hui MD [facility]11444 Level 3 Est. Patient 12:00:41 CDT Neeraj Collins MD [facility]23195 Level 3 Est. Patient 09:16:24 CDT Vishal Hui MD [facility]00815 Level 4 Est. Patient 13:59:09 CDT Neeraj Collins MD [facility]-56437 Level 3 Est. Patient 15:19:43 CDT Renzo Thornton DO [facility]-39982 Level 3 Est. Patient 18:10:26 CDT Sahara Rodriguez MD [facility]77738 Level 3 Est. Patient 14:49:50 CDT Vishal Hui MD [facility]31123 Level 4 Est. Patient 18:41:46 CDT Neeraj Collins MD [facility]29709 Level 4 Est. Patient 09:18:38 WIRE WELDER Vishal Hui MD [facility]61813 Level 3 Est. Patient 14:43:55 WIRE WELDER Vishal Hui MD [facility]03586 Level 3 Est. Patient 15:26:33 WIRE WELDER Sahara Rodriguez MD PhD [facility]08183 Level 3 Est. Patient 10:32:14 WIRE WELDER Vishal Hui MD [facility]71786 Level 3 Est. Patient 15:12:52 WIRE WELDER Vishal Hui MD [facility]-62421 Level 4 Est. Patient 09:19:27 CDT Vishal Hui MD [facility] CPT-30279 Level 3 Est. Patient 15:53:00 CDT Renzo Thornton [facility] CPT-12423 Level 3 Est. Patient 15:50:30 CDT Renzo Thornton [facility] CPT-79774 Level 3 Est. Patient 16:55:24 CDT Vishal Hui MD [facility] Procedures Code Procedure Name Date Entry Date Standard Description CPT-J3420 Vitamin B12 1000mcg (Cyanocobalamin) 08:34:04 CDT 10/09 CPT-35593 Abx/Therapy Injection 08:34:04 CDT CPT-J3420 Vitamin B12 1000mcg (Cyanocobalamin) 09:18:52 CDT 09/11 CPT-00727 Abx/Therapy Injection 09:18:52 CDT CPT-J3420 Vitamin B12 1000mcg (Cyanocobalamin) 08:35:44 CDT 09/04 CPT-81954 Abx/Therapy Injection 08:35:44 CDT CPT-15254 Immunization Single Admin 11:07:16 CDT CPT-65054 Hepatitis B adult IM 11:07:16 CDT CPT-J3420 Vitamin B12 1000mcg (Cyanocobalamin) 11:00:49 CDT 08/28 CPT-J1040 Depo Medrol 80 mg (Methyl Prednisolone Acetate) 11:00: 49 CDT CPT-40037 Abx/Therapy Injection 11:00:49 CDT CPT-J1040 Depo Medrol 80 mg (Methyl Prednisolone Acetate) 09:16: 23 CDT CPT-J3420 Vitamin B12 1000mcg (Cyanocobalamin) 08:27:05 CDT 08/20 CPT-95481 Abx/Therapy Injection 08:27:05 CDT CPT-72736 Recombivax HB Injection Suspension 5 MCG/0.5ML 10:00:41 CDT CPT-37698 Administration single or combination vaccine inc oral 10 :00:41 CDT CPT-46441 Sono transvag pelvis non OB uterus ovaries cervix 16:36: 57 CDT CPT-44839 LS spine comp w obliq 09:50:55 WIRE WELDER CPT-82259 Abd compl w upright 09:50:55 WIRE WELDER CPT-J1100 Decadron 4mg (Dexamethasone) 15:51:24 WIRE WELDER CPT-J1030 Depo Medrol 40 mg (Methyl Prednisolone Acetate) 15:51: 24 WIRE WELDER CPT-64876 Abx/Therapy Injection 15:51:24 WIRE WELDER CPT-J1100 Decadron 4mg (Dexamethasone) 15:26:33 WIRE WELDER CPT-J1030 Depo Medrol 40 mg (Methyl Prednisolone Acetate) 15:26: 33 WIRE WELDER CPT-36199 Sono retroperitoneal complete kidneys and bladder 17:15: 30 CDT CPT-53393 Abd compl w upright 16:09:25 CDT CPT-J1100 Decadron 8mg (Dexamethasone) 17:07:57 CDT CPT-80118 Abx/Therapy Injection 17:07:57 CDT CPT-J1100 Decadron 8mg (Dexamethasone) 16:55:24 CDT CPT-42024 Chest 2V Frontal and Lat 16:32:44 CDT
--- OUTSIDE RECORDS SUMMARY | 2016-11-04 14:36 | XMS REPORT | Clinical Summary ---
Author Author Admin, Dereck Organization [employer] Address Unknown Phone Unavailable Allergies, Adverse Reactions, [...] unspecified site Abdominal pain, RUQ 789.01 Resolved Albetr Caldera MD Abdominal pain, right upper quadrant [...] Active Ahmet Carbajal MD Generalized anxiety disorder Position Description Manager well woman exam V72.31 Active Suzan Boo [...] MD Health screening ICD-V70.0 Inactive Suzan Boo SHOVEL OPERATOR Sinus tachycardia ICD-427.89 Inactive Suzan Boo SHOVEL OPERATOR Smoker/tobacco use disorder-smoking cessation discussed ICD-305.1 Inactive [...] MCG ORAL CAPS 1 tab BID LUBIPROSTONE [id number] Active Lynda Madl PRINCIPAL AUTOMATION ENGINEER Active DIFLUCAN 150 MG TABS 1 by mouth for yeast FLUCONAZOLE 34062554931 Active Suzan Boo APRN Active LACTULOSE 10 GM/15ML ORAL SOLN 30mL oral BID for IBS-C LACTULOSE 41169056873 Active Suzan Boo APRN Active BACTRIM DS 800-160 MG TABS 1 twice a day SULFAMETHOXAZOLE- TRIMETHOPRIM 55165663131 Active Lynda Ninoska BHAKTAN Active MUPIROCIN 2 % OINT apply twice a day MUPIROCIN 15306820814 Active Suzan Boo APRN Active TESSALON PERLES 100 MG CAPS 1 three times a day as needed for cough BENZONATATE 65003764692 No Longer Active Suzan Boo APRN Active BACTRIM DS 800-160 MG TABS 1 twice a day SULFAMETHOXAZOLE-TRIMETHOPRIM 22480514100 No Longer Active Suzan Boo APRN Active DIFLUCAN 150 MG TABS 1 by mouth for yeast FLUCONAZOLE 11766150253 No Longer Active Suzan Boo APRN Active EQ NICOTINE 21 MG/24HR TRANS PT24 Apply daily to stop smoking NICOTINE 87745079956 No Longer Active Suzan Boo APRN Active PREDNISONE 10 MG TABS 2 daily for 5 days then 1 daily for 5 days PREDNISONE 25295988858 No Longer Active Suzan Boo APRN Active LEVAQUIN 500 MG TABS 1 daily for infection LEVOFLOXACIN 23189489814 No Longer Active Suzan Boo APRN Active TROPICAMIDE 0.5 % OPHTH SOLN 1 drop PRN eye spasms TROPICAMIDE 66419713406 No Longer Active Suzan Boo APRN Active PREDNISONE 20 MG TAB 1 tablet daily x 4 days PREDNISONE 47099208840 No Longer Active Suzan Boo APRN Active ACETAMINOPHEN-CODEINE 120-12 MG/5ML SOLN 5 ml by mouth every 4-6 hours if needed for cough ACETAMINOPHEN-CODEINE 62073133019 No Longer Active Suzan Boo APRN Active KEFLEX 500 MG CAP 1 po qid CEPHALEXIN 20216941671 No Longer Active Suzan Boo APRN Active FLOVENT HFA 110 MCG/ACT AERO 2 puffs inhaled b.i.d. FLUTICASONE PROPIONATE HFA 34545579749 Active Renzo Thornton DO Active RISPERDAL 4 MG ORAL TABS 1 tab at bedtime RISPERIDONE 03583052284 Active Samantha Rothman RMA Active ZOFRAN 4 MG TABS 1 po q6hr PRN Nausea ONDANSETRON HCL No Longer Active Suzan Boo APRN Active FLUTICASONE PROPIONATE 50 MCG/ACT SUSP 2 sprays each nostril daily before bed. FLUTICASONE PROPIONATE 68878446475 No Longer Active Suzan Boo APRN Active ASPIRIN 325 MG ORAL TABS 1 tab q.d ASPIRIN 75097452650 No Longer Active Suzan Boo APRN Active HALOPERIDOL 10 MG ORAL TABS 1 tab q.d HALOPERIDOL 11862841055 No Longer Active Suzan Boo APRN Active GUAIFENESIN-CODEINE 100-10 MG/5ML SYRP 5ml every 4 to 6 hours as needed for cough GUAIFENESIN-CODEINE 15458710083 No Longer Active Suzan Boo APRN Active ZITHROMAX Z-EARNEST 250 MG TABS 2 today and then 1 daily for 4 days AZITHROMYCIN 76480162683 No Longer Active Suzan Boo APRN Active CLONAZEPAM 1 MG ORAL TABS 1 twice a day and an additional 1 tablet every other day as needed for pseudoseizures or anxiety CLONAZEPAM 15294876312 Active Suzan Boo APRN Active HYDROCODONE-ACETAMINOPHEN 5-325 MG ORAL TABS 1 tab two times a day HYDROCODONE-ACETAMINOPHEN 03711960853 No Longer Active Ahmet Carbajal MD Active LAMICTAL 100 MG ORAL TABS 1 tab 2 times qd. LAMOTRIGINE 01152601361 Active Ahmet Carbajal MD Active PREDNISONE 20 MG TABS 2 daily for 5 days then 1 daily for 5 days PREDNISONE 93955991430 No Longer Active Ahmet Carbajal MD Active FLUTICASONE PROPIONATE 50 MCG/ACT SUSP 1 to 2 sprays each nostril daily for allergies FLUTICASONE PROPIONATE 53845250410 Active Tila Valenzuela Active BENADRYL 25 MG CAP 4 po at bedtime for insomnia DIPHENHYDRAMINE HCL 57463962486 No Longer Active Ahmet Carbajal MD Active ADVAIR DISKUS 250-50 MCG/DOSE INH AEPB 1 puff twice a day for asthma FLUTICASONE-SALMETEROL 80791134258 No Longer Active Ahmet Carbajal MD Active KLONOPIN 1 MG ORAL TABS 1 tab po TID CLONAZEPAM 83288117396 No Longer Active Ahmet Carbajal MD Active ABILIFY MAINTENA 400 MG IM SUSR 400mg injection every 26 days ARIPIPRAZOLE 94825220155 No Longer Active Ahmet Carbajal MD Active TRAMADOL HCL 50 MG TABS 1/2-1 tab TID PRN TRAMADOL HCL 27688681677 No Longer Active Ahmet Carbajal MD Active BACTRIM DS 800-160 MG TABS 1 twice a day SULFAMETHOXAZOLE- TRIMETHOPRIM 05002298620 No Longer Active Ahmet Carbajal MD Active PROAIR HFA 108 (90 BASE) MCG/ACT AERS 2 puffs four times a day as needed 2015 ALBUTEROL SULFATE 49820573163 Active Honey Hinton SHOVEL OPERATOR Active MONISTAT 7 COMBO PACK WOODROW 100 & 2 MG-% (9GM) VAG KIT 1 applicatorful per vagina q pm x 7 MICONAZOLE NITRATE 98193040016 No Longer Active Ahmet Carbajal MD Active FLAGYL 500 MG TAB 1 tablet by mouth bid METRONIDAZOLE 84950269276 No Longer Active Ahmet Carbajal MD Active OXYCODONE HCL ER 10 MG ORAL T12A 1/2 tab by mouth every 4 hours prn OXYCODONE HCL 85494365921 No Longer Active Ahmet Carbajal MD Active METHYLPREDNISOLONE 4 MG ORAL TABS po daily METHYLPREDNISOLONE 42707792123 No Longer Active Ahmet Carbajal MD Active LEVOFLOXACIN 500 MG ORAL TABS po daily LEVOFLOXACIN 10110830279 No Longer Active Ahmet Carbajal MD Active VIIBRYD 10 MG ORAL TABS Take 1 tablet once a day VILAZODONE HCL 08508490058 No Longer Active Ahmet Carbajal MD Active TOPAMAX 50 MG ORAL TABS 1 tab twice daily TOPIRAMATE 08578590558 No Longer Active Ahmet Carbajal MD Active DICLOFENAC SODIUM 50 MG TBEC 1 tablet by mouth four times daily PRN Pain 2015 DICLOFENAC SODIUM 46501096377 No Longer Active Ahmet Carbajal MD Active ADZENYS XR-ODT 6.3 MG ORAL TBED 1 tab po daily for ADHD AMPHETAMINE 33789119402 No Longer Active Ahmet Carbajal MD Active CHANTIX 1 MG TABS 1 twice a day to help quit smoking VARENICLINE TARTRATE 29075860234 No Longer Active Dipika Burgos MD Active CHANTIX STARTING MONTH EARNEST 0.5 MG X 11 & 1 MG X 42 TABS take as directed 2015 VARENICLINE TARTRATE 51062693045 No Longer Active Dipika Burgos MD Active TESSALON PERLES 100 MG CAP 1 to 2 tablets by mouth 3 times daily as needed for cough BENZONATATE 38510321322 No Longer Active Luigi Martínez APRN Active IMITREX 50 MG ORAL TABS 0.5 po x 1 PRN Headache. May repeat dose x 1 in 2 hours if needed SUMATRIPTAN SUCCINATE 32252459729 Active Ahmet Carbajal MD Active HYDROCODONE-ACETAMINOPHEN 5-325 MG TABS 1 to 2 four times a day as needed for pain use until can be seen by specialist HYDROCODONE- ACETAMINOPHEN 89597331610 No Longer Active Vishal Hui MD Active PROAIR HFA 108 (90 BASE) MCG/ACT AERS 2 puffs four times a day as needed 2015 ALBUTEROL SULFATE 84518718702 No Longer Active Vishal Hui MD Active PREDNISONE 20 MG TABS 2 daily for 5 days then 1 daily for 5 days PREDNISONE 76995667298 No Longer Active Vishal Hui MD Active ZITHROMAX Z-EARNEST 250 MG TABS 2 today and then 1 daily for 4 days AZITHROMYCIN 72601808535 No Longer Active Vishal Hui MD Active DICLOFENAC POTASSIUM TABS Take 1 tablet twice a day (pt. is not sure of the dose.) DICLOFENAC POTASSIUM TABS 44889817825 No Longer Active Vishal Hui MD Active VERAPAMIL HCL ER 120 MG ORAL CR-TABS Take 1 tablet by mouth twice a day. VERAPAMIL HCL 58140004902 Active Vishal Hui MD Active FLAGYL 500 MG TAB 1 tablet by mouth bid METRONIDAZOLE 72620364848 No Longer Active Vishal Hui MD Active VALIUM 5 MG TAB Take 1-2 tablets daily DIAZEPAM 43596963408 No Longer Active Fabiola Johnson APRN Active METOPROLOL TARTRATE 25 MG ORAL TABS 1/2 tablet twice daily for heart rate and blood pressure METOPROLOL TARTRATE 20345520104 No Longer Active Fabiola Johnson APRN Active MIRALAX ORAL POWD 17GMS DAILY IN WATER POLYETHYLENE GLYCOL 3350 18219721036 Active TAMARA Casey Active MIRALAX PACK 1 po qd PRN Constipation POLYETHYLENE GLYCOL 3350 17213470452 No Longer Active Ahmet Carbajal MD Active MINIPRESS 2 MG CAPS 4 cap po at night PRAZOSIN HCL 29674758656 No Longer Active Ahmet Carbajal MD Active PIROXICAM 20 MG CAPS 1 cap po qd PRN Pain PIROXICAM 27384233866 No Longer Active Ahmet Carbajal MD Active TRAMADOL HCL 50 MG TABS 1-2 po TID PRN Pain TRAMADOL HCL 40474659997 No Longer Active Ahmet Carbajal MD Active METOPROLOL TARTRATE 50 MG TAB 1 po bid METOPROLOL TARTRATE 81899586860 No Longer Active Ahmet Carbajal MD Active ABILIFY 15 MG ORAL TABS 1 tab daily ARIPIPRAZOLE 06573520556 No Longer Active Ahmet Carbajal MD Active PROZAC 20 MG ORAL CAPS 1 tab daily FLUOXETINE HCL 58533059263 No Longer Active Ahmet Carbajal MD Active AMBIEN 5 MG ORAL TABS 1 tab at bedtime ZOLPIDEM TARTRATE 43182080730 No Longer Active Ahmet Carbajal MD Active PREDNISONE 20 MG TAB 2 tabs daily for 4 days, 1 tab daily for 4 days, 1/2 tab daily for 4 days PREDNISONE 21420992067 No Longer Active Ahmet Carbajal MD Active KEFLEX 500 MG CAP 1 po TID x 10 days CEPHALEXIN 31924636963 No Longer Active Vishal Hui MD Active SAPHRIS 5 MG SUBL 1 po bid ASENAPINE MALEATE 54252115979 No Longer Active Jillina Frazell SHOVEL OPERATOR Active LATUDA 80 MG TABS Take one by mouth daily LURASIDONE HCL 18369801651 No Longer Active Jillina Frazell SHOVEL OPERATOR Active AMLODIPINE BESYLATE 5 MG TABS 1 tablet by mouth daily AMLODIPINE BESYLATE 64715293129 No Longer Active Jillina Frazell SHOVEL OPERATOR Active AMITRIPTYLINE HCL 100 MG TAB one at hs AMITRIPTYLINE HCL 92926356221 No Longer Active Vishal Hui MD Active TRAZODONE HCL 100 MG TAB take 1 at bedtime TRAZODONE HCL 55202274562 No Longer Active Vishal Hui MD Active VYVANSE 40 MG CAPS 1 daily, LISDEXAMFETAMINE DIMESYLATE 26655731384 No Longer Active Vishal Hui MD Active IBUPROFEN 600 MG TAB 1 po TID PRN IBUPROFEN 45579414050 No Longer Active Vishal Hui MD Active PROZAC 20 MG CAP Take one by mouth daily FLUOXETINE HCL 36945144939 No Longer Active Vishal Hui MD Active BACTRIM DS 800-160 MG TABS 1 pill by mouth twice daily SULFAMETHOXAZOLE-TRIMETHOPRIM 81532738365 No Longer Active Sahara Rodriguez MD PhD Active DIFLUCAN 150 MG TAB 1 tablet by mouth daily FLUCONAZOLE 46531230760 No Longer Active Vishal Hui MD Active TIZANIDINE HCL 4 MG TABS 1 po q6hr PRN Muscle Spasm/Back Pain TIZANIDINE HCL 44623875566 Active Vishal Hui MD Active CLINDAMYCIN HCL 150 MG CAPS 1 four times a day CLINDAMYCIN HCL 18878262821 No Longer Active Neeraj Collins MD Active KEFLEX 500 MG ORAL CAPS 1 cap QID by mouth CEPHALEXIN 66039924521 No Longer Active Neeraj Collins MD Active DIFLUCAN 150 MG TABS 1 pill every other day x 2 doses FLUCONAZOLE 62493089746 No Longer Active Sahara Rodriguez MD PhD Active MELATONIN 3 MG CAPS 2 po q hs MELATONIN 29386858963 No Longer Active Sahara Rodriguez MD PhD Active MULTIVITAMINS CAPS Take one by mouth daily MULTIPLE VITAMIN 47285726672 No Longer Active Sahara Rodriguez MD PhD Active BACTRIM DS 800-160 MG TAB 1 tab by mouth twice daily TRIMETHOPRIM-SULFAMETHOXAZOLE 55407039027 No Longer Active Sahara Rodriguez MD PhD Active [facility] PROBIOTIC ORAL CHEW 2 daily po PROBIOTIC PRODUCT 83694395790 No Longer Active Sahara Rodriguez MD PhD Active BACTRIM DS 800-160 MG TABS 1 po BID x 7 days SULFAMETHOXAZOLE-TRIMETHOPRIM 95240548434 No Longer Active Vishal Hui MD Active CHANTIX STARTING MONTH EARNEST 0.5 MG X 11 & 1 MG X 42 TABS 0.5mg daily for 3 days , then 0.5mg BID for 4 days, then 1mg BID VARENICLINE TARTRATE 35100106732 No Longer Active TAMARA Gray Active VERAPAMIL HCL CR 120 MG TAB CR 1 po bid VERAPAMIL HCL 45271998085 No Longer Active Vishal Hui MD Active METOPROLOL SUCCINATE 50 MG TB24 1 tablet by mouth daily METOPROLOL SUCCINATE 94107100977 No Longer Active Vishal Hui MD Active SAPHRIS 10 MG SUBL 1 tab po bid ASENAPINE MALEATE 85470035325 No Longer Active Vishal Hui MD Active LISINOPRIL 20 MG TABS 1 tab po qd LISINOPRIL 11309598273 No Longer Active Vishal Hui MD Active LATUDA 20 MG TABS Take one by mouth daily LURASIDONE HCL 13973965032 No Longer Active Vishal Hui MD Active TRAZODONE HCL 50 MG TABS 1/2 tab po qd prn for anxiety TRAZODONE HCL 05137651063 No Longer Active Vishal Hui MD Active OMEPRAZOLE 20 MG TBEC 1 po q a.m. 30min prior to first food intake OMEPRAZOLE 36503920787 Active TAMARA Casey Active RANITIDINE HCL 150 MG CAPS 1 twice a day RANITIDINE HCL 98660867187 Active Lynda Xiao LPN Active LINZESS 290 MCG CAPS Take one by mouth daily LINACLOTIDE 16530806319 No Longer Active Vishal Hui MD Active SAPHRIS 5 MG SUBL 1 tab po qd ASENAPINE MALEATE 50236615846 No Longer Active Vishal Hui MD Active ZALEPLON 10 MG CAPS 1 cap po every other night ZALEPLON 37159203930 No Longer Active Vishal Hui MD Active LYRICA 50 MG CAPS 1 tab po TID PREGABALIN 87167092313 No Longer Active Vishal Hui MD Active LORATADINE 10 MG TABS 1 tab po qd LORATADINE 68883206627 No Longer Active Vishal Hui MD Active VERAPAMIL HCL ER 180 MG CR-TABS 1 tab po bid VERAPAMIL HCL 28759595197 No Longer Active Vishal Hui MD Active MIRALAX POWD 1 capfull once daily POLYETHYLENE GLYCOL 3350 46688646617 No Longer Active Vishal Hui MD Active PREDNISONE 20 MG TABS 1 tab po qd PREDNISONE 39236540586 No Longer Active Renzo Thornton DO Active LEVOFLOXACIN 500 MG TABS 1 tab po qd LEVOFLOXACIN 99472928568 No Longer Active Renzo Thornton DO Active BUSPIRONE HCL 15 MG TABS 1 tab po TID BUSPIRONE HCL 99785199580 No Longer Active Renzo Thornton DO Active BENZTROPINE MESYLATE 1 MG TABS 1 tab po qd BENZTROPINE MESYLATE 24000599120 No Longer Active Renzo Thornton DO Active ATENOLOL 25 MG TABS 1 tab po qd ATENOLOL 06006303632 No Longer Active Renzo Thornton DO Active ESCITALOPRAM OXALATE 20 MG TABS 1 tab po qd ESCITALOPRAM OXALATE 13492611964 No Longer Active Renzo Thornton DO Active ADVAIR DISKUS 250-50 MCG/DOSE AEPB 1 puff BID FLUTICASONE-SALMETEROL 69714630014 No Longer Active Renzo Thornton DO Active PREDNISONE 20 MG TAB 2 tabs daily for 3 days, 1 tab daily for 3 days, 1/2 tab daily for 2 days PREDNISONE 13143764403 No Longer Active Vishal Hui MD Active CEFDINIR 300 MG CAPS by mouth twice a day CEFDINIR 01757449282 No Longer Active Vishal Hui MD Active LANSOPRAZOLE 30 MG CPDR 1 cap po qd LANSOPRAZOLE 67293307405 No Longer Active Vishal Hui MD Active BACLOFEN 20 MG TABS 1 tab po tid BACLOFEN 30202436508 No Longer Active Vishal Hui MD Active ADVAIR DISKUS 250-50 MCG/DOSE AEPB 1 puff BID ADVAIR DISKUS 250-50 MCG/DOSE AEPB FLUTICASONE-SALMETEROL Inactive ESCITALOPRAM OXALATE 20 MG TABS 1 tab po qd ESCITALOPRAM OXALATE 20 MG TABS 058630 ESCITALOPRAM OXALATE Inactive ATENOLOL 25 MG TABS 1 tab po qd ATENOLOL 25 MG TABS 374440 ATENOLOL Inactive BENZTROPINE MESYLATE 1 MG TABS 1 tab po qd BENZTROPINE MESYLATE 1 MG TABS 587922 BENZTROPINE MESYLATE Inactive BUSPIRONE HCL 15 MG TABS 1 tab po TID BUSPIRONE HCL 15 MG TABS 059169 BUSPIRONE HCL Inactive LEVOFLOXACIN 500 MG TABS 1 tab po qd LEVOFLOXACIN 500 MG TABS 385740 LEVOFLOXACIN Inactive PREDNISONE 20 MG TABS 1 tab po qd PREDNISONE 20 MG TABS 702939 PREDNISONE Inactive MIRALAX POWD 1 capfull once daily MIRALAX POWD 581600 POLYETHYLENE GLYCOL 3350 Inactive VERAPAMIL HCL ER 180 MG CR-TABS 1 tab po bid VERAPAMIL HCL ER 180 MG CR-TABS VERAPAMIL HCL Inactive LORATADINE 10 MG TABS 1 tab po qd LORATADINE 10 MG TABS 394483 LORATADINE Inactive LYRICA 50 MG CAPS 1 tab po TID LYRICA 50 MG CAPS PREGABALIN Inactive ZALEPLON 10 MG CAPS 1 cap po every other night ZALEPLON 10 MG CAPS 206961 ZALEPLON Inactive SAPHRIS 5 MG SUBL 1 tab po qd SAPHRIS 5 MG SUBL ASENAPINE MALEATE Inactive TRAZODONE HCL 50 MG TABS 1/2 tab po qd prn for anxiety TRAZODONE HCL 50 MG TABS 857278 TRAZODONE HCL Inactive LATUDA 20 MG TABS Take one by mouth daily LATUDA 20 MG TABS LURASIDONE HCL Inactive LISINOPRIL 20 MG TABS 1 tab po qd LISINOPRIL 20 MG TABS 405897 LISINOPRIL Inactive SAPHRIS 10 MG SUBL 1 [...] twice daily BACTRIM DS 800-160 MG TAB 556419 TRIMETHOPRIM-SULFAMETHOXAZOLE Inactive MULTIVITAMINS CAPS Take one by mouth daily MULTIVITAMINS CAPS MULTIPLE VITAMIN Inactive MELATONIN 3 MG CAPS 2 po q hs MELATONIN 3 MG CAPS 501900 MELATONIN Inactive KEFLEX 500 MG ORAL CAPS 1 cap QID by mouth KEFLEX 500 MG ORAL CAPS 084103 CEPHALEXIN Inactive CLINDAMYCIN HCL 150 MG CAPS 1 four times a day CLINDAMYCIN HCL 150 MG CAPS 899949 CLINDAMYCIN HCL Inactive DIFLUCAN 150 MG TAB 1 tablet by mouth daily DIFLUCAN 150 MG TAB 145977 FLUCONAZOLE Inactive PROZAC 20 MG CAP Take one by mouth daily PROZAC 20 MG CAP 473820 FLUOXETINE HCL Inactive IBUPROFEN 600 MG TAB 1 po TID PRN IBUPROFEN 600 MG TAB 764632 IBUPROFEN Inactive VYVANSE 40 MG CAPS 1 daily, VYVANSE 40 MG CAPS LISDEXAMFETAMINE DIMESYLATE Inactive TRAZODONE HCL 100 MG TAB take 1 at bedtime TRAZODONE HCL 100 MG TAB 010568 TRAZODONE HCL Inactive AMITRIPTYLINE HCL 100 MG TAB one at hs AMITRIPTYLINE HCL 100 MG TAB 422906 AMITRIPTYLINE HCL Inactive AMLODIPINE BESYLATE 5 MG TABS 1 tablet by mouth daily AMLODIPINE BESYLATE 5 MG TABS 141707 AMLODIPINE BESYLATE Inactive LATUDA 80 MG TABS Take one by mouth daily LATUDA 80 MG TABS LURASIDONE HCL Inactive SAPHRIS 5 MG SUBL 1 po bid SAPHRIS 5 MG SUBL ASENAPINE MALEATE Inactive PREDNISONE 20 MG TAB 2 tabs daily for 4 days, 1 tab daily for 4 days, 1/2 tab daily for 4 days PREDNISONE 20 MG TAB 559342 PREDNISONE Inactive AMBIEN 5 MG ORAL TABS 1 tab at bedtime AMBIEN 5 MG ORAL TABS 825517 ZOLPIDEM TARTRATE Inactive PROZAC 20 MG ORAL CAPS 1 tab daily PROZAC 20 MG ORAL CAPS 260761 FLUOXETINE HCL Inactive ABILIFY 15 MG ORAL TABS 1 tab daily ABILIFY 15 MG ORAL TABS 914815 ARIPIPRAZOLE Inactive METOPROLOL TARTRATE 50 MG TAB 1 po bid METOPROLOL TARTRATE 50 MG TAB 682051 METOPROLOL TARTRATE Inactive TRAMADOL HCL 50 MG TABS 1-2 po TID PRN Pain TRAMADOL HCL 50 MG TABS 503882 TRAMADOL HCL Inactive PIROXICAM 20 MG CAPS 1 cap po qd PRN Pain PIROXICAM 20 MG CAPS 385387 PIROXICAM Inactive MINIPRESS 2 MG CAPS 4 cap po at night MINIPRESS 2 MG CAPS 793892 PRAZOSIN HCL Inactive MIRALAX PACK 1 po qd PRN Constipation MIRALAX PACK 457663 POLYETHYLENE GLYCOL 3350 Inactive METOPROLOL TARTRATE 25 MG ORAL TABS 1/2 tablet twice daily for heart rate and blood pressure METOPROLOL TARTRATE 25 MG ORAL TABS 571508 METOPROLOL TARTRATE Inactive VALIUM 5 MG TAB Take 1-2 tablets daily VALIUM 5 MG TAB 319573 DIAZEPAM Inactive FLAGYL 500 MG TAB 1 tablet by mouth bid FLAGYL 500 MG TAB 891134 METRONIDAZOLE Inactive DICLOFENAC POTASSIUM TABS Take 1 tablet twice a day (pt. is not sure of the dose.) DICLOFENAC POTASSIUM TABS DICLOFENAC POTASSIUM TABS Inactive ZITHROMAX Z-EARNEST 250 MG TABS 2 today and then 1 daily for 4 days ZITHROMAX Z-EARNEST 250 MG TABS 3852627 AZITHROMYCIN Inactive PREDNISONE 20 MG TABS 2 daily for 5 days then 1 daily for 5 days PREDNISONE 20 MG TABS 852064 PREDNISONE Inactive PROAIR HFA 108 (90 BASE) MCG/ACT AERS 2 puffs four times a day as needed 2015 PROAIR HFA 108 (90 BASE) MCG/ACT AERS ALBUTEROL SULFATE Inactive HYDROCODONE-ACETAMINOPHEN 5-325 MG TABS 1 to 2 four times a day as needed for pain use until can be seen by specialist HYDROCODONE- ACETAMINOPHEN 5-325 MG TABS 482169 HYDROCODONE-ACETAMINOPHEN Inactive TESSALON PERLES 100 MG CAP 1 to 2 tablets by mouth 3 times daily as needed for cough TESSALON PERLES 100 MG CAP 644109 BENZONATATE Inactive CHANTIX STARTING MONTH EARNEST 0.5 [...] Pain 2015 DICLOFENAC SODIUM 50 MG TBEC 494994 DICLOFENAC SODIUM Inactive TOPAMAX 50 MG ORAL TABS 1 tab twice daily TOPAMAX 50 MG ORAL TABS 140119 TOPIRAMATE Inactive VIIBRYD 10 MG ORAL TABS Take 1 tablet once a day VIIBRYD 10 MG ORAL TABS VILAZODONE HCL Inactive LEVOFLOXACIN 500 MG ORAL TABS po daily LEVOFLOXACIN 500 MG ORAL TABS 630020 LEVOFLOXACIN Inactive METHYLPREDNISOLONE 4 MG ORAL TABS po daily METHYLPREDNISOLONE 4 MG ORAL TABS 341397 METHYLPREDNISOLONE Inactive OXYCODONE HCL ER 10 MG ORAL T12A 1/2 tab by mouth every 4 hours prn OXYCODONE HCL ER 10 MG ORAL T12A OXYCODONE HCL Inactive FLAGYL 500 MG TAB 1 tablet by mouth bid FLAGYL 500 MG TAB 505739 METRONIDAZOLE Inactive MONISTAT 7 COMBO PACK WOODROW 100 & 2 MG-% (9GM) VAG KIT 1 applicatorful per vagina q pm x 7 MONISTAT 7 COMBO PACK WOODROW 100 & 2 MG-% (9GM) VAG KIT MICONAZOLE NITRATE Inactive BACTRIM DS 800-160 MG TABS 1 twice a day BACTRIM DS 800-160 MG TABS 566869 SULFAMETHOXAZOLE-TRIMETHOPRIM Inactive TRAMADOL HCL 50 MG TABS 1/2-1 tab TID PRN TRAMADOL HCL 50 MG TABS 259571 TRAMADOL HCL Inactive ABILIFY MAINTENA 400 MG IM SUSR 400mg injection every 26 days ABILIFY MAINTENA 400 MG IM SUSR ARIPIPRAZOLE Inactive KLONOPIN 1 MG ORAL TABS 1 tab po TID KLONOPIN 1 MG ORAL TABS 761019 CLONAZEPAM Inactive ADVAIR DISKUS 250-50 MCG/DOSE INH AEPB 1 puff twice a day for asthma ADVAIR DISKUS 250-50 MCG/DOSE INH AEPB FLUTICASONE- SALMETEROL Inactive BENADRYL 25 MG CAP 4 po at bedtime for insomnia BENADRYL 25 MG CAP DIPHENHYDRAMINE HCL Inactive PREDNISONE 20 MG TABS 2 daily for 5 days then 1 daily for 5 days PREDNISONE 20 MG TABS 281167 PREDNISONE Inactive HYDROCODONE-ACETAMINOPHEN 5-325 MG ORAL TABS 1 tab two times a day HYDROCODONE-ACETAMINOPHEN 5-325 MG ORAL TABS 620174 HYDROCODONE-ACETAMINOPHEN Inactive ZITHROMAX Z-EARNEST 250 MG TABS 2 today and then 1 daily for 4 days ZITHROMAX Z-EARNEST 250 MG TABS 9919322 AZITHROMYCIN Inactive GUAIFENESIN-CODEINE 100-10 MG/5ML SYRP 5ml every 4 to 6 hours as needed for cough GUAIFENESIN-CODEINE 100-10 MG/5ML SYRP 545560 GUAIFENESIN-CODEINE Inactive HALOPERIDOL 10 MG ORAL TABS 1 tab q.d HALOPERIDOL 10 MG ORAL TABS 728008 HALOPERIDOL Inactive ASPIRIN 325 MG ORAL TABS 1 tab q.d ASPIRIN 325 MG ORAL TABS 239555 ASPIRIN Inactive FLUTICASONE PROPIONATE 50 MCG/ACT SUSP 2 sprays each nostril daily before bed. FLUTICASONE PROPIONATE 50 MCG/ACT SUSP 8269059 FLUTICASONE PROPIONATE Inactive ZOFRAN 4 MG TABS 1 po q6hr PRN Nausea ZOFRAN 4 MG TABS 575202 ONDANSETRON HCL Inactive KEFLEX 500 MG CAP 1 po qid KEFLEX 500 MG CAP 481967 CEPHALEXIN Inactive ACETAMINOPHEN-CODEINE 120-12 MG/5ML SOLN 5 ml by mouth every 4-6 hours if needed for cough ACETAMINOPHEN-CODEINE 120-12 MG/5ML SOLN 157539 ACETAMINOPHEN-CODEINE Inactive PREDNISONE 20 MG TAB 1 tablet daily x 4 days PREDNISONE 20 MG TAB 610408 PREDNISONE Inactive TROPICAMIDE 0.5 % OPHTH SOLN 1 drop PRN eye spasms TROPICAMIDE 0.5 % OPHTH SOLN 599172 TROPICAMIDE Inactive LEVAQUIN 500 MG TABS 1 daily for infection LEVAQUIN 500 MG TABS 172991 LEVOFLOXACIN Inactive PREDNISONE 10 MG TABS 2 daily for 5 days then 1 daily for 5 days PREDNISONE 10 MG TABS 571879 PREDNISONE Inactive EQ NICOTINE 21 MG/24HR TRANS [...] for 2 days PREDNISONE 20 MG TAB 318540 PREDNISONE Inactive BACTRIM DS 800-160 MG TABS 1 po BID x 7 days BACTRIM DS 800-160 MG TABS 19820521 SULFAMETHOXAZOLE-TRIMETHOPRIM Inactive DIFLUCAN 150 MG TABS 1 pill every other day x 2 doses DIFLUCAN 150 MG TABS 081885 FLUCONAZOLE Inactive BACTRIM DS 800-160 MG TABS 1 pill by mouth twice daily BACTRIM DS 800-160 MG TABS 19820521 SULFAMETHOXAZOLE-TRIMETHOPRIM Inactive KEFLEX 500 MG CAP 1 po TID x 10 days KEFLEX 500 MG CAP 464555 CEPHALEXIN Inactive Advance Directives Directive Description Start [...] % 11.0-15.0 platelet count 443 THOUSAND/UL 10*3/mm3 199-259 9618/03/01 mean platelet volume 8.2 fL 7.5-12.5 leukocyte [...] % 11.0-15.0 platelet count 349 THOUSAND/UL 10*3/mm3 398-354 3160/04/12 mean platelet volume 8.4 fL 7.5-12.5 Lab [...] 369 10^3/MM^3 10*3/mm3 142-424 Lab Report: Chlamydia/GC APTIMA/[id number] - Lab chlamydia DNA probe NOT DETECTED NOT DETECTED Lab Report: Chlamydia/GC APTIMA/[id number] - Microbiology Neisseria gonorrhoeae DNA probe NOT DETECTED NOT DETECTED Lab Report: Chlamydia/GC APTIMA/[id number], Urinalysis, Complete, with Reflex ... - Lab chlamydia DNA probe NOT DETECTED NOT DETECTED Lab Report: Chlamydia/GC APTIMA/[id number], Urinalysis, Complete, with Reflex ... - Microbiology Neisseria gonorrhoeae DNA probe NOT DETECTED NOT DETECTED Lab Report: Chlamydia/GC APTIMA/[id number], Urinalysis, Complete, with Reflex ... - Urinalysis microalbumin/total urine volume 2 mg/L Units converted. See lab report for original value. microalbumin/creatinine ratio, urine 9 MCG/MG CREAT mg/L <30 Lab Report: Comp. Metabolic Panel - Chemistry sodium, serum 142 mmol/L [phone]/06/08 carbon dioxide, venous blood 27.6 mmol/L 21.0-32.0 potassium, serum 4.0 mmol/L 3.5-5.2 chloride, serum 105 mmol/L 98-107 blood glucose 95 mg/dL 65-110 urea nitrogen, blood 8 mg/dL 7-18 creatinine, serum 0.75 mg/dL 0.55-1.30 alanine aminotransferase (SGPT), serum 49 U/L -78 aspartate aminotransferase (SGOT), serum 28 U/L 15-37 calcium, serum 9.4 mg/dL 8.5-10.1 bilirubin, serum, total 0.30 mg/dL 0.00-1.00 sodium, serum 140 mmol/L [phone]/08/08 carbon dioxide, venous blood 33.7 mmol/L 21.0-32.0 [...] mg/dL Encounters Code Encounter Date Provider Facility CPT-35866 Level 4 Est. Patient 10:49:34 CDT Suzan Boo [facility] CPT-28919 Level 3 Est. Patient 10:00:25 CDT Suzan Boo [facility] CPT-86855 Level 3 Est. Patient 10:29:30 CDT Suzan Boo [facility] CPT-17149 Level 3 Est. Patient 11:04:38 CDT Renzo Thornton [facility] CPT-26993 Level 3 Est. Patient 11:15:58 POSTAL CLERK Renzo Thornton [facility] CPT-44126 Level 3 Est. Patient 15:28:23 POSTAL CLERK Suzan Boo [facility] CPT-18982 Level 4 Est. Patient 10:20:54 POSTAL CLERK Suzan Boo [facility]-05165 Level 3 Est. Patient 11:47:37 POSTAL CLERK Ahmet Carbajal MD [facility]-38913 Level 3 Est. Patient 10:40:11 POSTAL CLERK Ahmet Carbajal MD [facility] CPT-38433 Level 3 Est. Patient 15:07:06 POSTAL CLERK Neeraj Collins MD [facility] CPT-29112 Level 4 Est. Patient 14:45:00 POSTAL CLERK Ahmet Carbajal MD [facility]-60733 Level 3 Est. Patient 13:59:59 CDT Luigi Martínez [facility] CPT-02067 Level 3 Est. Patient 18:18:53 CDT Neeraj Collins MD [facility] CPT-87598 Level 3 Est. Patient 15:50:44 CDT Vishal Hui MD [facility]-05561 Level 3 Est. Patient 11:36:17 CDT Ahmet Carbajal MD [facility] CPT-45201 Level 3 Est. Patient 13:29:16 CDT Vishal Hui MD [facility] CPT-72967 Level 3 Est. Patient 14:27:52 CDT Neeraj Collins MD [facility] CPT-00948 Level 3 Est. Patient 08:56:03 CDT Luigi Martínez [facility] CPT-03663 Level 4 Est. Patient 12:11:48 CDT Fabiola Johnson [facility] CPT-99667 Level 3 New Patient 16:53:37 CDT Albert Caldera MD [facility] CPT-64033 Level 3 Est. Patient 11:25:49 CDT Renzo Thornton DO [facility] CPT-85242 Level 3 Est. Patient 15:22:01 CDT Ahmet Carbajal MD [facility] CPT-15456 Level 4 Est. Patient 09:00:51 POSTAL CLERK Vishal Hui MD [facility] CPT-66600 Level 3 Est. Patient 11:37:33 POSTAL CLERK Vishal Hui MD [facility] CPT-00261 Level 3 Est. Patient 08:41:09 POSTAL CLERK Vishal Hui MD [facility] CPT-85429 Level 4 Est. Patient 10:19:35 POSTAL CLERK Vishal Hui MD [facility] CPT-31331 Level 3 Est. Patient 13:35:45 CDT Vishal Hui MD [facility] CPT-35442 Level 4 Est. Patient 10:08:37 CDT Vishal Hui MD [facility] CPT-05385 Level 3 Est. Patient 11:22:10 CDT Vishal Hui MD [facility] CPT-33506 Level 3 Est. Patient 11:03:32 CDT Sahara Rodriguez MD [facility] CPT-29701 Level 3 Est. Patient 09:41:35 CDT Vishal Hui MD [facility] CPT-93651 Level 3 Est. Patient 12:00:41 CDT Neeraj Collins MD [facility] CPT-17647 Level 3 Est. Patient 09:16:24 CDT Vishal Hui MD [facility] CPT-35316 Level 4 Est. Patient 13:59:09 CDT Neeraj Collins MD [facility] CPT-30887 Level 3 Est. Patient 15:19:43 CDT Renzo Thornton [facility] CPT-09888 Level 3 Est. Patient 18:10:26 CDT Sahara Rodriguez MD [facility] CPT-20343 Level 3 Est. Patient 14:49:50 CDT Vishal Hui MD [facility]-09430 Level 4 Est. Patient 18:41:46 CDT Neeraj Collins MD [facility] CPT-37499 Level 4 Est. Patient 09:18:38 POSTAL CLERK Vishal Hui MD [facility] CPT-98172 Level 3 Est. Patient 14:43:55 POSTAL CLERK Vishal Hui MD [facility] CPT-08081 Level 3 Est. Patient 15:26:33 POSTAL CLERK Sahara Rodriguez MD [facility]-58358 Level 3 Est. Patient 10:32:14 POSTAL CLERK Vishal Hui MD [facility] CPT-34672 Level 3 Est. Patient 15:12:52 POSTAL CLERK Vishal Hui MD [facility] CPT-94681 Level 4 Est. Patient 09:19:27 CDT Vishal Hui MD [facility] CPT-30943 Level 3 Est. Patient 15:53:00 CDT Renzo Thornton [facility] CPT-09632 Level 3 Est. Patient 15:50:30 CDT Renzo Thornton [facility] CPT-74580 Level 3 Est. Patient 16:55:24 CDT Vishal Hui MD [facility] Procedures Code Procedure Name Date Entry Date Standard Description CPT-56229 Venipuncture Draw Fee 08:41:12 CDT CPT-62277 Abd compl w upright - XRAY USE ONLY 10:27:59 CDT 06/28 CPT-84080 Smoking Cessation counseling 11:15:58 POSTAL CLERK CPT-G0439 Subsequent Annual Wellness Exam 09:30:58 POSTAL CLERK CPT-34773 TSH - LAB USE ONLY 08:50:26 POSTAL CLERK CPT-93165 CBC - LAB USE ONLY 08:50:26 POSTAL CLERK CPT-43674 Venipuncture Draw Fee 08:50:26 POSTAL CLERK CPT-78870 Abx/Therapy Injection 17:34:30 POSTAL CLERK CPT-98304 Nexplanon Removal with Reinsertion 14:09:32 CDT CPT-J7307 Nexplanon (Implant) 14:09:32 CDT CPT-OV Office Visit 14:09:32 CDT CPT-50205 UA w micro - LAB USE ONLY 16:21:13 CDT CPT-31644 Wet Mount - LAB USE ONLY 16:21:13 CDT CPT-20118 First Vx - Ix admin for Medicare patients 14:37:47 CDT CPT-69359 Fluzone Preservative Free Intramuscular Suspension 14:37 :47 CDT CPT-73803 Abx/Therapy Injection 13:54:22 CDT CPT-94218 Abx/Therapy Injection 08:47:09 CDT CPT-26164 Abx/Therapy Injection 13:29:56 CDT CPT-73470 Abx/Therapy Injection 08:36:16 CDT CPT-93767 Wet Mount - LAB USE ONLY 17:44:58 CDT CPT-19101 UA w micro - LAB USE ONLY 17:44:58 CDT CPT-28563 CMP - LAB USE ONLY 17:44:58 CDT CPT-49583 Venipuncture Draw Fee 17:44:58 CDT CPT-59501 Cervical Min 4V - XRAY USE ONLY 09:01:40 CDT CPT-08166 Chest 2V Frontal and Lat - XRAY USE ONLY 11:06:31 CDT CPT-84853 EKG Trac and Interp - XRAY USE ONLY 11:31:43 CDT 08/26 CPT-J3420 Vitamin B12 1000mcg (Cyanocobalamin) 08:10:26 POSTAL CLERK 04/12 CPT-92309 Abx/Therapy Injection 08:10:26 POSTAL CLERK CPT-G0438 Initial Annual Wellness Exam 19:01:01 POSTAL CLERK CPT-J3420 Vitamin B12 1000mcg (Cyanocobalamin) 16:57:46 CDT 08/14 CPT-29892 Recombivax HB Injection Suspension 5 MCG/0.5ML 08:37:50 POSTAL CLERK CPT-46766 Immunization Single Admin 08:37:50 POSTAL CLERK CPT-J3420 Vitamin B12 1000mcg (Cyanocobalamin) 08:32:16 POSTAL CLERK 03/11 CPT-56368 Abx/Therapy Injection 08:32:16 POSTAL CLERK CPT-84701 Chest 2V Frontal and Lat 11:46:38 POSTAL CLERK CPT-29606 Venipuncture Draw Fee 09:12:45 POSTAL CLERK CPT-J3420 Vitamin B12 1000mcg (Cyanocobalamin) 08:50:15 POSTAL CLERK 02/08 CPT-70315 Abx/Therapy Injection 08:50:15 POSTAL CLERK CPT-Cryo Cryotherapy 10:19:35 POSTAL CLERK CPT-000 Give Appropriate Flu Vaccine 09:22:16 CDT CPT-J3420 Vitamin B12 1000mcg (Cyanocobalamin) 19:08:57 CDT 01/11 CPT-17548 Abx/Therapy Injection 19:08:57 CDT CPT-J3420 Vitamin B12 1000mcg (Cyanocobalamin) 08:19:08 CDT 12/11 CPT-30351 Abx/Therapy Injection 08:19:08 CDT CPT-J3420 Vitamin B12 1000mcg (Cyanocobalamin) 14:48:00 CDT 11/09 CPT-91933 Abx/Therapy Injection 14:47:59 CDT CPT-J3420 Vitamin B12 1000mcg (Cyanocobalamin) 08:34:04 CDT 10/09 CPT-29292 Abx/Therapy Injection 08:34:04 CDT CPT-J3420 Vitamin B12 1000mcg (Cyanocobalamin) 09:18:52 CDT 09/11 CPT-30193 Abx/Therapy Injection 09:18:52 CDT CPT-J3420 Vitamin B12 1000mcg (Cyanocobalamin) 08:35:44 CDT 09/04 CPT-82758 Abx/Therapy Injection 08:35:44 CDT CPT-52288 Immunization Single Admin 11:07:16 CDT CPT-08451 Hepatitis B adult IM 11:07:16 CDT CPT-J3420 Vitamin B12 1000mcg (Cyanocobalamin) 11:00:49 CDT 08/28 CPT-J1040 Depo Medrol 80 mg (Methyl Prednisolone Acetate) 11:00: 49 CDT CPT-12127 Abx/Therapy Injection 11:00:49 CDT CPT-J1040 Depo Medrol 80 mg (Methyl Prednisolone Acetate) 09:16: 23 CDT CPT-J3420 Vitamin B12 1000mcg (Cyanocobalamin) 08:27:05 CDT 08/20 CPT-51597 Abx/Therapy Injection 08:27:05 CDT CPT-38218 Recombivax HB Injection Suspension 5 MCG/0.5ML 10:00:41 CDT CPT-57755 Administration single or combination vaccine inc oral 10 :00:41 CDT CPT-71818 Sono transvag pelvis non OB uterus ovaries cervix 16:36: 57 CDT CPT-65816 LS spine comp w obliq 09:50:55 POSTAL CLERK CPT-95047 Abd compl w upright 09:50:55 POSTAL CLERK CPT-J1100 Decadron 4mg (Dexamethasone) 15:51:24 POSTAL CLERK CPT-J1030 Depo Medrol 40 mg (Methyl Prednisolone Acetate) 15:51: 24 POSTAL CLERK CPT-41000 Abx/Therapy Injection 15:51:24 POSTAL CLERK CPT-J1100 Decadron 4mg (Dexamethasone) 15:26:33 POSTAL CLERK CPT-J1030 Depo Medrol 40 mg (Methyl Prednisolone Acetate) 15:26: 33 POSTAL CLERK CPT-42459 Sono retroperitoneal complete kidneys and bladder 17:15: 30 CDT CPT-56308 Abd compl w upright 16:09:25 CDT CPT-J1100 Decadron 8mg (Dexamethasone) 17:07:57 CDT CPT-08058 Abx/Therapy Injection 17:07:57 CDT CPT-J1100 Decadron 8mg (Dexamethasone) 16:55:24 CDT CPT-60714 Chest 2V Frontal and Lat 16:32:44 CDT
--- OUTSIDE RECORDS SUMMARY | 2016-11-04 14:38 | XMS REPORT | Clinical Summary ---
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 Hypoxemia Neck pain 723.1 Resolved Vishal Hui [...] Active Ahmet Carbajal MD Tobacco use disorder Anxiety Disorder ICD-300.00 Inactive Vishal Hui [...] Generic Name NDC Status Provider Patient Instruction PROAIR HFA 108 (90 BASE) MCG/ACT AERS 2 puffs four times a day as needed 2015 ALBUTEROL SULFATE 53518537932 Active Ahmet Carbajal MD Active EQ NICOTINE 21 MG/24HR TRANS PT24 Apply daily to stop smoking NICOTINE 10352986975 Active Ahmet Carbajal MD Active BACTRIM DS 800-160 MG TABS 1 twice a day SULFAMETHOXAZOLE- TRIMETHOPRIM 06282813905 Active Ahmet Carbajal MD Active ADVAIR DISKUS 250-50 MCG/DOSE INH AEPB 1 puff twice a day for asthma FLUTICASONE-SALMETEROL 03648444596 Active Ahmet Carbajal MD Active MONISTAT 7 COMBO PACK WOODROW 100 & 2 MG-% (9GM) VAG KIT 1 applicatorful per vagina q pm x 7 MICONAZOLE NITRATE 24836572501 No Longer Active Ahmet Carbajal MD Active FLAGYL 500 MG TAB 1 tablet by mouth bid METRONIDAZOLE 68535933574 No Longer Active Ahmet Carbajal MD Active OXYCODONE HCL ER 10 MG ORAL T12A 1/2 tab by mouth every 4 hours prn OXYCODONE HCL 50964382676 No Longer Active Ahemt Carbajal MD Active METHYLPREDNISOLONE 4 MG ORAL TABS po daily METHYLPREDNISOLONE 69194408450 No Longer Active Ahmet Carbajal MD Active LEVOFLOXACIN 500 MG ORAL TABS po daily LEVOFLOXACIN 17860171910 No Longer Active Ahmet Carbajal MD Active VIIBRYD 10 MG ORAL TABS Take 1 tablet once a day VILAZODONE HCL 81459740362 No Longer Active Ahmet Carbajal MD Active TOPAMAX 50 MG ORAL TABS 1 tab twice daily TOPIRAMATE 33366698015 No Longer Active Ahmet Carbajal MD Active DICLOFENAC SODIUM 50 MG TBEC 1 tablet by mouth four times daily PRN Pain 2015 DICLOFENAC SODIUM 82634586264 No Longer Active Ahmet Carbajal MD Active ADZENYS XR-ODT 6.3 MG ORAL TBED 1 tab po daily for ADHD AMPHETAMINE 39433882699 No Longer Active Ahmet Carbajal MD Active CHANTIX 1 MG TABS 1 twice a day to help quit smoking VARENICLINE TARTRATE 52818194217 No Longer Active Dipika Burgos MD Active CHANTIX STARTING MONTH EARNEST 0.5 MG X 11 & 1 MG X 42 TABS take as directed 2015 VARENICLINE TARTRATE 14379008951 No Longer Active Dipika Burgos MD Active TESSALON PERLES 100 MG CAP 1 to 2 tablets by mouth 3 times daily as needed for cough BENZONATATE 95402321523 No Longer Active Luigi Martínez MANAGER [employer]VENUE Active ABILIOMAR MAINTENA 400 MG IM SUSR 400mg injection every 26 days ARIPIPRAZOLE 24834654637 Active Silvia Casey STOCKKEEPER Active IMITREX 50 MG ORAL TABS 0.5 po x 1 PRN Headache. May repeat dose x 1 in 2 hours if needed SUMATRIPTAN SUCCINATE 14868320336 Active Vishal Hui MD Active HYDROCODONE-ACETAMINOPHEN 5-325 MG TABS 1 to 2 four times a day as needed for pain use until can be seen by specialist HYDROCODONE- ACETAMINOPHEN 59507130831 No Longer Active Vishal Hui MD Active PROAIR HFA 108 (90 BASE) MCG/ACT AERS 2 puffs four times a day as needed 2015 ALBUTEROL SULFATE 31062957358 No Longer Active Vishal uHi MD Active PREDNISONE 20 MG TABS 2 daily for 5 days then 1 daily for 5 days PREDNISONE 65377138270 No Longer Active Vishal Hui MD Active ZITHROMAX Z-EARNEST 250 MG TABS 2 today and then 1 daily for 4 days AZITHROMYCIN 34445365832 No Longer Active Vishal Hui MD Active DICLOFENAC POTASSIUM TABS Take 1 tablet twice a day (pt. is not sure of the dose.) DICLOFENAC POTASSIUM TABS 71250277664 No Longer Active Vishal Hui MD Active VERAPAMIL HCL ER 120 MG ORAL CR-TABS Take 1 tablet by mouth twice a day. VERAPAMIL HCL 90898441602 Active Vishal Hui MD Active FLAGYL 500 MG TAB 1 tablet by mouth bid METRONIDAZOLE 84976341934 No Longer Active Vishal Hui MD Active FLUTICASONE PROPIONATE 50 MCG/ACT SUSP 2 sprays each nostril daily before bed. FLUTICASONE PROPIONATE 24618614599 Active Fabiola Johnson APRN Active BENADRYL 25 MG CAP 4 po at bedtime for insomnia DIPHENHYDRAMINE HCL 10294691856 Active Fabiola Johnson APRN Active KLONOPIN 1 MG ORAL TABS 1 tab po TID CLONAZEPAM 61493687198 Active Fabiola Johnson APRN Active VALIUM 5 MG TAB Take 1-2 tablets daily DIAZEPAM 95786907061 No Longer Active Fabiola Johnson APRN Active METOPROLOL TARTRATE 25 MG ORAL TABS 1/2 tablet twice daily for heart rate and blood pressure METOPROLOL TARTRATE 75330017995 No Longer Active Fabiola Johnson APRN Active MIRALAX ORAL POWD 17GMS DAILY IN WATER POLYETHYLENE GLYCOL 3350 81950870071 Active Vishal Hui MD Active MIRALAX PACK 1 po qd PRN Constipation POLYETHYLENE GLYCOL 3350 97327311381 No Longer Active Ahmet Carbajal MD Active MINIPRESS 2 MG CAPS 4 cap po at night PRAZOSIN HCL 28957760780 No Longer Active Ahmet Carbajal MD Active PIROXICAM 20 MG CAPS 1 cap po qd PRN Pain PIROXICAM 82751446274 No Longer Active Ahmet Carabjal MD Active TRAMADOL HCL 50 MG TABS 1-2 po TID PRN Pain TRAMADOL HCL 94321463346 No Longer Active Ahmet Carbajal MD Active METOPROLOL TARTRATE 50 MG TAB 1 po bid METOPROLOL TARTRATE 07678335150 No Longer Active Ahmet Carbajal MD Active ABILIFY 15 MG ORAL TABS 1 tab daily ARIPIPRAZOLE 41031692211 No Longer Active Ahmet Carbajal MD Active PROZAC 20 MG ORAL CAPS 1 tab daily FLUOXETINE HCL 98157371323 No Longer Active Ahmet Carbajal MD Active AMBIEN 5 MG ORAL TABS 1 tab at bedtime ZOLPIDEM TARTRATE 85075194071 No Longer Active Ahmet Carbajal MD Active PREDNISONE 20 MG TAB 2 tabs daily for 4 days, 1 tab daily for 4 days, 1/2 tab daily for 4 days PREDNISONE 21183203117 No Longer Active Ahmet Carbajal MD Active KEFLEX 500 MG CAP 1 po TID x 10 days CEPHALEXIN 63778593302 No Longer Active Vishal Hui MD Active SAPHRIS 5 MG SUBL 1 po bid ASENAPINE MALEATE 84634367371 No Longer Active Jillina Mauricio MANAGER REVENUE Active LATUDA 80 MG TABS Take one by mouth daily LURASIDONE HCL 28634478457 No Longer Active Jillina Frazell MANAGER REVENUE Active AMLODIPINE BESYLATE 5 MG TABS 1 tablet by mouth daily AMLODIPINE BESYLATE 71147080789 No Longer Active Jillina Fradwightl MANAGER REVENUE Active AMITRIPTYLINE HCL 100 MG TAB one at hs AMITRIPTYLINE HCL 65376294369 No Longer Active Vishal Hui MD Active TRAZODONE HCL 100 MG TAB take 1 at bedtime TRAZODONE HCL 72980840049 No Longer Active Vishal Hui MD Active VYVANSE 40 MG CAPS 1 daily, LISDEXAMFETAMINE DIMESYLATE 70608198859 No Longer Active Vishal Hui MD Active IBUPROFEN 600 MG TAB 1 po TID PRN IBUPROFEN 66620658353 No Longer Active Vishal Hui MD Active PROZAC 20 MG CAP Take one by mouth daily FLUOXETINE HCL 10745144180 No Longer Active Vishal Hui MD Active ZOFRAN 4 MG TABS 1 po q6hr PRN Nausea ONDANSETRON HCL Active Vishal Hui MD Active BACTRIM DS 800-160 MG TABS 1 pill by mouth twice daily SULFAMETHOXAZOLE-TRIMETHOPRIM 96249070671 No Longer Active Sahara Rodriguez MD PhD Active DIFLUCAN 150 MG TAB 1 tablet by mouth daily FLUCONAZOLE 08523676770 No Longer Active Vishal Hui MD Active TIZANIDINE HCL 4 MG TABS 1 po q6hr PRN Muscle Spasm/Back Pain TIZANIDINE HCL 20604007167 Active Vishal Hui MD Active CLINDAMYCIN HCL 150 MG CAPS 1 four times a day CLINDAMYCIN HCL 47023628726 No Longer Active Neeraj Collins MD Active KEFLEX 500 MG ORAL CAPS 1 cap QID by mouth CEPHALEXIN 75248548749 No Longer Active Neeraj Collins MD Active DIFLUCAN 150 MG TABS 1 pill every other day x 2 doses FLUCONAZOLE 42486607663 No Longer Active Sahara Rodriguez MD PhD Active MELATONIN 3 MG CAPS 2 po q hs MELATONIN 84153478403 No Longer Active Sahara Rodriguez MD PhD Active MULTIVITAMINS CAPS Take one by mouth daily MULTIPLE VITAMIN 87990746445 No Longer Active Sahara Rodriguez MD PhD Active BACTRIM DS 800-160 MG TAB 1 tab by mouth twice daily TRIMETHOPRIM-SULFAMETHOXAZOLE 64558004559 No Longer Active Sahara Rodriguez MD PhD Active [facility] PROBIOTIC ORAL CHEW 2 daily po PROBIOTIC PRODUCT 79321550078 No Longer Active Sahara Rodriguez MD PhD Active BACTRIM DS 800-160 MG TABS 1 po BID x 7 days SULFAMETHOXAZOLE-TRIMETHOPRIM 70441527107 No Longer Active Vishal Hui MD Active CHANTIX STARTING MONTH EARNEST 0.5 MG X 11 & 1 MG X 42 TABS 0.5mg daily for 3 days , then 0.5mg BID for 4 days, then 1mg BID VARENICLINE TARTRATE 45293210415 No Longer Active TAMARA Gray Active VERAPAMIL HCL CR 120 MG TAB CR 1 po bid VERAPAMIL HCL 80373342769 No Longer Active Vishal Hui MD Active METOPROLOL SUCCINATE 50 MG TB24 1 tablet by mouth daily METOPROLOL SUCCINATE 70794926256 No Longer Active Vishal Hui MD Active SAPHRIS 10 MG SUBL 1 tab po bid ASENAPINE MALEATE 86435647600 No Longer Active Vishal Hui MD Active LISINOPRIL 20 MG TABS 1 tab po qd LISINOPRIL 76449755842 No Longer Active Vishal Hui MD Active LATUDA 20 MG TABS Take one by mouth daily LURASIDONE HCL 78708586627 No Longer Active Vishal Hui MD Active TRAZODONE HCL 50 MG TABS 1/2 tab po qd prn for anxiety TRAZODONE HCL 75494995375 No Longer Active Vishal Hui MD Active OMEPRAZOLE 20 MG TBEC 1 po q a.m. 30min prior to first food intake OMEPRAZOLE 88434408690 Active Vishal Hui MD Active RANITIDINE HCL 150 MG CAPS 1 twice a day RANITIDINE HCL 82513984640 Active Luigi Martínez APRN Active LINZESS 290 MCG CAPS Take one by mouth daily LINACLOTIDE 38188226515 No Longer Active Vishal Hui MD Active SAPHRIS 5 MG SUBL 1 tab po qd ASENAPINE MALEATE 76062099923 No Longer Active Vishal Hui MD Active ZALEPLON 10 MG CAPS 1 cap po every other night ZALEPLON 39695663041 No Longer Active Vishal Hui MD Active LYRICA 50 MG CAPS 1 tab po TID PREGABALIN 26414434941 No Longer Active Vishal Hui MD Active LORATADINE 10 MG TABS 1 tab po qd LORATADINE 22968011514 No Longer Active Vishal Hui MD Active VERAPAMIL HCL ER 180 MG CR-TABS 1 tab po bid VERAPAMIL HCL 69502230407 No Longer Active Vishal Hui MD Active MIRALAX POWD 1 capfull once daily POLYETHYLENE GLYCOL 3350 04203917515 No Longer Active Vishal Hui MD Active PREDNISONE 20 MG TABS 1 tab po qd PREDNISONE 16935773638 No Longer Active Renzo Thornton DO Active LEVOFLOXACIN 500 MG TABS 1 tab po qd LEVOFLOXACIN 69639350207 No Longer Active Renzo Thornton DO Active BUSPIRONE HCL 15 MG TABS 1 tab po TID BUSPIRONE HCL 65131054981 No Longer Active Renzo Thornton DO Active BENZTROPINE MESYLATE 1 MG TABS 1 tab po qd BENZTROPINE MESYLATE 74142346036 No Longer Active Renzo Thornton DO Active ATENOLOL 25 MG TABS 1 tab po qd ATENOLOL 17798680624 No Longer Active Renzo Thornton DO Active ESCITALOPRAM OXALATE 20 MG TABS 1 tab po qd ESCITALOPRAM OXALATE 82745887255 No Longer Active Renzo Thornton DO Active ADVAIR DISKUS 250-50 MCG/DOSE AEPB 1 puff BID FLUTICASONE-SALMETEROL 04909147556 No Longer Active Renzo Thornton DO Active PREDNISONE 20 MG TAB 2 tabs daily for 3 days, 1 tab daily for 3 days, 1/2 tab daily for 2 days PREDNISONE 83669574652 No Longer Active Vishal Hui MD Active CEFDINIR 300 MG CAPS by mouth twice a day CEFDINIR 10662946396 No Longer Active Vishal Hui MD Active LANSOPRAZOLE 30 MG CPDR 1 cap po qd LANSOPRAZOLE 79700318627 No Longer Active Vishal Hui MD Active BACLOFEN 20 MG TABS 1 tab po tid BACLOFEN 68843203453 No Longer Active Vishal Hui MD Active ADVAIR DISKUS 250-50 MCG/DOSE AEPB 1 puff BID ADVAIR DISKUS 250-50 MCG/DOSE AEPB FLUTICASONE-SALMETEROL Inactive ESCITALOPRAM OXALATE 20 MG TABS 1 tab po qd ESCITALOPRAM OXALATE 20 MG TABS 203375 ESCITALOPRAM OXALATE Inactive ATENOLOL 25 MG TABS 1 tab po qd ATENOLOL 25 MG TABS 701175 ATENOLOL Inactive BENZTROPINE MESYLATE 1 MG TABS 1 tab po qd BENZTROPINE MESYLATE 1 MG TABS 994937 BENZTROPINE MESYLATE Inactive BUSPIRONE HCL 15 MG TABS 1 tab po TID BUSPIRONE HCL 15 MG TABS 730404 BUSPIRONE HCL Inactive LEVOFLOXACIN 500 MG TABS 1 tab po qd LEVOFLOXACIN 500 MG TABS 980596 LEVOFLOXACIN Inactive PREDNISONE 20 MG TABS 1 tab po qd PREDNISONE 20 MG TABS 483933 PREDNISONE Inactive MIRALAX POWD 1 capfull once daily MIRALAX POWD 214881 POLYETHYLENE GLYCOL 3350 Inactive VERAPAMIL HCL ER 180 MG CR-TABS 1 tab po bid VERAPAMIL HCL ER 180 MG CR-TABS VERAPAMIL HCL Inactive LORATADINE 10 MG TABS 1 tab po qd LORATADINE 10 MG TABS 050986 LORATADINE Inactive LYRICA 50 MG CAPS 1 tab po TID LYRICA 50 MG CAPS PREGABALIN Inactive ZALEPLON 10 MG CAPS 1 cap po every other night ZALEPLON 10 MG CAPS 088182 ZALEPLON Inactive SAPHRIS 5 MG SUBL 1 tab po qd SAPHRIS 5 MG SUBL ASENAPINE MALEATE Inactive TRAZODONE HCL 50 MG TABS 1/2 tab po qd prn for anxiety TRAZODONE HCL 50 MG TABS 446573 TRAZODONE HCL Inactive LATUDA 20 MG TABS Take one by mouth daily LATUDA 20 MG TABS LURASIDONE HCL Inactive LISINOPRIL 20 MG TABS 1 tab po qd LISINOPRIL 20 MG TABS 523518 LISINOPRIL Inactive SAPHRIS 10 MG SUBL 1 [...] twice daily BACTRIM DS 800-160 MG TAB 829816 TRIMETHOPRIM-SULFAMETHOXAZOLE Inactive MULTIVITAMINS CAPS Take one by mouth daily MULTIVITAMINS CAPS MULTIPLE VITAMIN Inactive MELATONIN 3 MG CAPS 2 po q hs MELATONIN 3 MG CAPS 040995 MELATONIN Inactive KEFLEX 500 MG ORAL CAPS 1 cap QID by mouth KEFLEX 500 MG ORAL CAPS 673612 CEPHALEXIN Inactive CLINDAMYCIN HCL 150 MG CAPS 1 four times a day CLINDAMYCIN HCL 150 MG CAPS 911808 CLINDAMYCIN HCL Inactive DIFLUCAN 150 MG TAB 1 tablet by mouth daily DIFLUCAN 150 MG TAB 510815 FLUCONAZOLE Inactive PROZAC 20 MG CAP Take one by mouth daily PROZAC 20 MG CAP 469433 FLUOXETINE HCL Inactive IBUPROFEN 600 MG TAB 1 po TID PRN IBUPROFEN 600 MG TAB 503606 IBUPROFEN Inactive VYVANSE 40 MG CAPS 1 daily, VYVANSE 40 MG CAPS LISDEXAMFETAMINE DIMESYLATE Inactive TRAZODONE HCL 100 MG TAB take 1 at bedtime TRAZODONE HCL 100 MG TAB 276446 TRAZODONE HCL Inactive AMITRIPTYLINE HCL 100 MG TAB one at hs AMITRIPTYLINE HCL 100 MG TAB 338672 AMITRIPTYLINE HCL Inactive AMLODIPINE BESYLATE 5 MG TABS 1 tablet by mouth daily AMLODIPINE BESYLATE 5 MG TABS 923510 AMLODIPINE BESYLATE Inactive LATUDA 80 MG TABS Take one by mouth daily LATUDA 80 MG TABS LURASIDONE HCL Inactive SAPHRIS 5 MG SUBL 1 po bid SAPHRIS 5 MG SUBL ASENAPINE MALEATE Inactive PREDNISONE 20 MG TAB 2 tabs daily for 4 days, 1 tab daily for 4 days, 1/2 tab daily for 4 days PREDNISONE 20 MG TAB 786340 PREDNISONE Inactive AMBIEN 5 MG ORAL TABS 1 tab at bedtime AMBIEN 5 MG ORAL TABS 407770 ZOLPIDEM TARTRATE Inactive PROZAC 20 MG ORAL CAPS 1 tab daily PROZAC 20 MG ORAL CAPS 614959 FLUOXETINE HCL Inactive ABILIFY 15 MG ORAL TABS 1 tab daily ABILIFY 15 MG ORAL TABS 880364 ARIPIPRAZOLE Inactive METOPROLOL TARTRATE 50 MG TAB 1 po bid METOPROLOL TARTRATE 50 MG TAB 797608 METOPROLOL TARTRATE Inactive TRAMADOL HCL 50 MG TABS 1-2 po TID PRN Pain TRAMADOL HCL 50 MG TABS 624512 TRAMADOL HCL Inactive PIROXICAM 20 MG CAPS 1 cap po qd PRN Pain PIROXICAM 20 MG CAPS 448217 PIROXICAM Inactive MINIPRESS 2 MG CAPS 4 cap po at night MINIPRESS 2 MG CAPS 925392 PRAZOSIN HCL Inactive MIRALAX PACK 1 po qd PRN Constipation MIRALAX PACK 157015 POLYETHYLENE GLYCOL 3350 Inactive METOPROLOL TARTRATE 25 MG ORAL TABS 1/2 tablet twice daily for heart rate and blood pressure METOPROLOL TARTRATE 25 MG ORAL TABS 433782 METOPROLOL TARTRATE Inactive VALIUM 5 MG TAB Take 1-2 tablets daily VALIUM 5 MG TAB 992640 DIAZEPAM Inactive FLAGYL 500 MG TAB 1 tablet by mouth bid FLAGYL 500 MG TAB 070786 METRONIDAZOLE Inactive DICLOFENAC POTASSIUM TABS Take 1 tablet twice a day (pt. is not sure of the dose.) DICLOFENAC POTASSIUM TABS DICLOFENAC POTASSIUM TABS Inactive ZITHROMAX Z-EARNEST 250 MG TABS 2 today and then 1 daily for 4 days ZITHROMAX Z-EARNEST 250 MG TABS 5578891 AZITHROMYCIN Inactive PREDNISONE 20 MG TABS 2 daily for 5 days then 1 daily for 5 days PREDNISONE 20 MG TABS 225910 PREDNISONE Inactive PROAIR HFA 108 (90 BASE) MCG/ACT AERS 2 puffs four times a day as needed 2015 PROAIR HFA 108 (90 BASE) MCG/ACT AERS ALBUTEROL SULFATE Inactive HYDROCODONE-ACETAMINOPHEN 5-325 MG TABS 1 to 2 four times a day as needed for pain use until can be seen by specialist HYDROCODONE- ACETAMINOPHEN 5-325 MG TABS 427640 HYDROCODONE-ACETAMINOPHEN Inactive TESSALON PERLES 100 MG CAP 1 to 2 tablets by mouth 3 times daily as needed for cough TESSALON PERLES 100 MG CAP 232835 BENZONATATE Inactive CHANTIX STARTING MONTH EARNEST 0.5 [...] Pain 2015 DICLOFENAC SODIUM 50 MG TBEC 254047 DICLOFENAC SODIUM Inactive TOPAMAX 50 MG ORAL TABS 1 tab twice daily TOPAMAX 50 MG ORAL TABS 433722 TOPIRAMATE Inactive VIIBRYD 10 MG ORAL TABS Take 1 tablet once a day VIIBRYD 10 MG ORAL TABS VILAZODONE HCL Inactive LEVOFLOXACIN 500 MG ORAL TABS po daily LEVOFLOXACIN 500 MG ORAL TABS 562423 LEVOFLOXACIN Inactive METHYLPREDNISOLONE 4 MG ORAL TABS po daily METHYLPREDNISOLONE 4 MG ORAL TABS 300113 METHYLPREDNISOLONE Inactive OXYCODONE HCL ER 10 MG ORAL T12A 1/2 tab by mouth every 4 hours prn OXYCODONE HCL ER 10 MG ORAL T12A OXYCODONE HCL Inactive FLAGYL 500 MG TAB 1 tablet by mouth bid FLAGYL 500 MG TAB 394923 METRONIDAZOLE Inactive MONISTAT 7 COMBO PACK WOODROW 100 & 2 MG-% (9GM) VAG KIT 1 applicatorful per vagina q pm x 7 MONISTAT 7 COMBO PACK WOODROW 100 & 2 MG-% (9GM) VAG KIT MICONAZOLE NITRATE Inactive CEFDINIR 300 MG CAPS by mouth twice a day CEFDINIR 300 MG CAPS 403395 CEFDINIR Inactive PREDNISONE 20 MG TAB 2 tabs daily for 3 days, 1 tab daily for 3 days, 1/2 tab daily for 2 days PREDNISONE 20 MG TAB 890989 PREDNISONE Inactive BACTRIM DS 800-160 MG TABS 1 po BID x 7 days BACTRIM DS 800-160 MG TABS 19820521 SULFAMETHOXAZOLE-TRIMETHOPRIM Inactive DIFLUCAN 150 MG TABS 1 pill every other day x 2 doses DIFLUCAN 150 MG TABS 668758 FLUCONAZOLE Inactive BACTRIM DS 800-160 MG TABS 1 pill by mouth twice daily BACTRIM DS 800-160 MG TABS 19820521 SULFAMETHOXAZOLE-TRIMETHOPRIM Inactive KEFLEX 500 MG CAP 1 po TID x 10 days KEFLEX 500 MG CAP 942110 CEPHALEXIN Inactive Advance Directives Directive Description Start [...] % 11.6-14.8 platelet count 394 10^3/MM^3 10*3/mm3 906-284 2821/01/11 leukocyte count, blood 13.8 10^3/MM^3 10*3/mm3 4.6-10.2 [...] Panel - Chemistry sodium, serum 139 mmol/L 180-057 7053/12/03 carbon dioxide, venous blood 28.5 mmol/L 21.0-32.0 [...] 5.5 % 4.3-6.0 cholesterol, serum 159 mg/dL 941-380 1282/12/03 triglyceride, serum, fasting 118 mg/dL 30-200 HDL [...] 362 10^3/MM^3 10*3/mm3 142-424 Lab Report: Chlamydia/GC [facility]/[id number] - Lab chlamydia DNA probe NOT DETECTED NOT DETECTED Lab Report: Chlamydia/GC [facility]/04135 - Microbiology Neisseria gonorrhoeae DNA probe NOT DETECTED NOT DETECTED Lab Report: Comp. Metabolic Panel - Chemistry sodium, serum 140 mmol/L 527-127 2213/08/08 carbon dioxide, venous blood 33.7 mmol/L 21.0-32.0 potassium, serum 5.0 mmol/L 3.5-5.2 chloride, serum 103 mmol/L 98-107 blood glucose 80 mg/dL 65-110 urea nitrogen, blood 13 mg/dL 7-18 creatinine, serum 0.88 mg/dL 0.55-1.30 alanine aminotransferase (SGPT), serum 54 U/L - aspartate aminotransferase (SGOT), serum 29 U/L 15-37 calcium, serum 9.7 mg/dL 8.5-10.1 bilirubin, serum, total 0.30 mg/dL 0.00-1.00 sodium, serum 139 mmol/L 810-122 9384/12/22 carbon dioxide, venous blood 26.8 mmol/L 21.0-32.0 potassium, serum 4.2 mmol/L 3.5-5.2 chloride, serum 103 mmol/L 98-107 blood glucose 115 mg/dL 65-110 urea nitrogen, blood 20 mg/dL 7-18 creatinine, serum 0.90 mg/dL 0.55-1.30 alanine aminotransferase (SGPT), serum 38 U/L aspartate aminotransferase (SGOT), serum 19 U/L 15-37 calcium, serum 8.6 mg/dL 8.5-10.1 bilirubin, serum, total 0.30 mg/dL 0.00-1.00 sodium, serum 139 mmol/L 897-876 2469/01/11 carbon dioxide, venous blood 26.6 mmol/L 21.0-32.0 potassium, serum 4.1 mmol/L 3.5-5.2 chloride, serum 100 mmol/L 98-107 blood glucose 86 mg/dL 65-110 urea nitrogen, blood 16 mg/dL 7-18 creatinine, serum 1.00 mg/dL 0.55-1.30 alanine aminotransferase (SGPT), serum 48 U/L -78 aspartate aminotransferase (SGOT), serum 17 U/L 15-37 calcium, serum 9.1 mg/dL 8.5-10.1 bilirubin, serum, total 0.40 mg/dL 0.00-1.00 sodium, serum 142 mmol/L 258-532 0456/06/08 carbon dioxide, venous blood 27.6 mmol/L 21.0-32.0 [...] Rate - Chemistry sodium, serum 139 mmol/L 009-382 8682/12/11 carbon dioxide, venous blood 25.4 mmol/L 21.0-32.0 [...] mg/dL Encounters Code Encounter Date Provider Facility CPT-69499 Level 4 Est. Patient 14:45:00 SOLAR ENERGY SPECIALIST Ahmet Carbajal MD [facility] CPT-47991 Level 3 Est. Patient 13:59:59 CDT Luigi Martínez [facility] CPT-05965 Level 3 Est. Patient 18:18:53 CDT Neeraj Collins MD [facility] CPT-42196 Level 3 Est. Patient 15:50:44 CDT Vishal Hui MD [facility] CPT-06410 Level 3 Est. Patient 11:36:17 CDT Ahmet Carbajal MD [facility] CPT-78409 Level 3 Est. Patient 13:29:16 CDT Vishal Hui MD [facility] CPT-11898 Level 3 Est. Patient 14:27:52 CDT Neeraj Collins MD [facility] CPT-42203 Level 3 Est. Patient 08:56:03 CDT Luigi Martínez [facility] CPT-57370 Level 4 Est. Patient 12:11:48 CDT Fabiola Johnson [facility] CPT-21285 Level 3 New Patient 16:53:37 CDT Albert Caldera MD [facility] CPT-38415 Level 3 Est. Patient 11:25:49 CDT Renzo Thornton DO [facility] CPT-46130 Level 3 Est. Patient 15:22:01 CDT Ahmet Carbajal MD [facility] CPT-59069 Level 4 Est. Patient 09:00:51 SOLAR ENERGY SPECIALIST Vishal Hui MD [facility] CPT-74587 Level 3 Est. Patient 11:37:33 SOLAR ENERGY SPECIALIST Vishal Hui MD [facility] CPT-02571 Level 3 Est. Patient 08:41:09 SOLAR ENERGY SPECIALIST Vishal Hui MD [facility] CPT-30654 Level 4 Est. Patient 10:19:35 SOLAR ENERGY SPECIALIST Vishal Hui MD [facility] CPT-87423 Level 3 Est. Patient 13:35:45 CDT Vishal Hui MD [facility] CPT-21877 Level 4 Est. Patient 10:08:37 CDT Vishal Hui MD [facility] CPT-97067 Level 3 Est. Patient 11:22:10 CDT Vishal Hui MD [facility] CPT-36010 Level 3 Est. Patient 11:03:32 CDT Sahara Rodriguez MD [facility]-21746 Level 3 Est. Patient 09:41:35 CDT Vishal Hui MD [facility] CPT-08445 Level 3 Est. Patient 12:00:41 CDT Neeraj Collins MD [facility] CPT-85439 Level 3 Est. Patient 09:16:24 CDT Vishal Hui MD [facility] CPT-85931 Level 4 Est. Patient 13:59:09 CDT Neeraj Collins MD [facility] CPT-56939 Level 3 Est. Patient 15:19:43 CDT Renzo Thornton DO [facility] CPT-82938 Level 3 Est. Patient 18:10:26 CDT Sahara Rodriguez MD [facility]-36022 Level 3 Est. Patient 14:49:50 CDT Vishal Hui MD [facility] CPT-99357 Level 4 Est. Patient 18:41:46 CDT Neeraj Collins MD [facility] CPT-29106 Level 4 Est. Patient 09:18:38 SOLAR ENERGY SPECIALIST Vishal Hui MD [facility] CPT-78152 Level 3 Est. Patient 14:43:55 SOLAR ENERGY SPECIALIST Vishal Hui MD [facility] CPT-46498 Level 3 Est. Patient 15:26:33 SOLAR ENERGY SPECIALIST Sahara Rodriguez MD PhD [facility] CPT-07596 Level 3 Est. Patient 10:32:14 SOLAR ENERGY SPECIALIST Vishal Hui MD [facility] CPT-62439 Level 3 Est. Patient 15:12:52 SOLAR ENERGY SPECIALIST Vishal Hui MD [facility] CPT-11337 Level 4 Est. Patient 09:19:27 CDT Vishal Hui MD [facility] CPT-84656 Level 3 Est. Patient 15:53:00 CDT Renzo Thornton [facility] CPT-80054 Level 3 Est. Patient 15:50:30 CDT Renzo Thornton [facility] CPT-76548 Level 3 Est. Patient 16:55:24 CDT Vishal Hui MD [facility] Procedures Code Procedure Name Date Entry Date Standard Description CPT-46267 Abx/Therapy Injection 17:34:30 SOLAR ENERGY SPECIALIST CPT-41079 Nexplanon Removal with Reinsertion 14:09:32 CDT CPT-J7307 Nexplanon (Implant) 14:09:32 CDT CPT-OV Office Visit 14:09:32 CDT CPT-34996 UA w micro - LAB USE ONLY 16:21:13 CDT CPT-17031 [place] - LAB USE ONLY 16:21:13 CDT CPT-14560 First Vx - Ix admin for Medicare patients 14:37:47 CDT CPT-20405 Fluzone Preservative Free Intramuscular Suspension 14:37 :47 CDT CPT-24540 Abx/Therapy Injection 13:54:22 CDT CPT-59269 Abx/Therapy Injection 08:47:09 CDT CPT-14441 Abx/Therapy Injection 13:29:56 CDT CPT-41423 Abx/Therapy Injection 08:36:16 CDT CPT-19751 [place] - LAB USE ONLY 17:44:58 CDT CPT-46319 UA w micro - LAB USE ONLY 17:44:58 CDT CPT-67073 CMP - LAB USE ONLY 17:44:58 CDT CPT-12779 Venipuncture Draw Fee 17:44:58 CDT CPT-25178 Cervical Min 4V - XRAY USE ONLY 09:01:40 CDT CPT-78977 Chest 2V Frontal and Lat - XRAY USE ONLY 11:06:31 CDT CPT-83846 EKG Trac and Interp - XRAY USE ONLY 11:31:43 CDT 08/26 CPT-J3420 Vitamin B12 1000mcg (Cyanocobalamin) 08:10:26 [employer] 04/12 CPT-86041 Abx/Therapy Injection 08:10:26 [employer]IST CPT-G0438 Initial Annual Wellness Exam 19:01:01 [employer] CPT-J3420 Vitamin B12 1000mcg (Cyanocobalamin) 16:57:46 CDT 08/14 CPT-20904 Recombivax HB Injection Suspension 5 MCG/0.5ML 08:37:50 [employer] CPT-88129 Immunization Single Admin 08:37:50 [employer]IST CPT-J3420 Vitamin B12 1000mcg (Cyanocobalamin) 08:32:16 [employer]IST 03/11 CPT-86554 Abx/Therapy Injection 08:32:16 [employer]IST CPT-43198 Chest 2V Frontal and Lat 11:46:38 [employer]IST CPT-90384 Venipuncture Draw Fee 09:12:45 [employer]IST CPT-J3420 Vitamin B12 1000mcg (Cyanocobalamin) 08:50:15 [employer]IST 02/08 CPT-58119 Abx/Therapy Injection 08:50:15 [employer]IST CPT-Cryo Cryotherapy 10:19:35 [employer]IST CPT-000 Give Appropriate Flu Vaccine 09:22:16 CDT CPT-J3420 Vitamin B12 1000mcg (Cyanocobalamin) 19:08:57 CDT 01/11 CPT-05517 Abx/Therapy Injection 19:08:57 CDT CPT-J3420 Vitamin B12 1000mcg (Cyanocobalamin) 08:19:08 CDT 12/11 CPT-63536 Abx/Therapy Injection 08:19:08 CDT CPT-J3420 Vitamin B12 1000mcg (Cyanocobalamin) 14:48:00 CDT 11/09 CPT-68974 Abx/Therapy Injection 14:47:59 CDT CPT-J3420 Vitamin B12 1000mcg (Cyanocobalamin) 08:34:04 CDT 10/09 CPT-94315 Abx/Therapy Injection 08:34:04 CDT CPT-J3420 Vitamin B12 1000mcg (Cyanocobalamin) 09:18:52 CDT 09/11 CPT-85697 Abx/Therapy Injection 09:18:52 CDT CPT-J3420 Vitamin B12 1000mcg (Cyanocobalamin) 08:35:44 CDT 09/04 CPT-44605 Abx/Therapy Injection 08:35:44 CDT CPT-86010 Immunization Single Admin 11:07:16 CDT CPT-73802 Hepatitis B adult IM 11:07:16 CDT CPT-J3420 Vitamin B12 1000mcg (Cyanocobalamin) 11:00:49 CDT 08/28 CPT-J1040 Depo Medrol 80 mg (Methyl Prednisolone Acetate) 11:00: 49 CDT CPT-39791 Abx/Therapy Injection 11:00:49 CDT CPT-J1040 Depo Medrol 80 mg (Methyl Prednisolone Acetate) 09:16: 23 CDT CPT-J3420 Vitamin B12 1000mcg (Cyanocobalamin) 08:27:05 CDT 08/20 CPT-81094 Abx/Therapy Injection 08:27:05 CDT CPT-38713 Recombivax HB Injection Suspension 5 MCG/0.5ML 10:00:41 CDT CPT-51705 Administration single or combination vaccine inc oral 10 :00:41 CDT CPT-74221 Sono transvag pelvis non OB uterus ovaries cervix 16:36: 57 CDT CPT-64615 LS spine comp w obliq 09:50:55 [employer] CPT-96693 Abd compl w upright 09:50:55 [employer]IST CPT-J1100 Decadron 4mg (Dexamethasone) 15:51:24 [employer]IST CPT-J1030 Depo Medrol 40 mg (Methyl Prednisolone Acetate) 15:51: 24 [employer]IST CPT-44658 Abx/Therapy Injection 15:51:24 [employer]IST CPT-J1100 Decadron 4mg (Dexamethasone) 15:26:33 [employer]IST CPT-J1030 Depo Medrol 40 mg (Methyl Prednisolone Acetate) 15:26: 33 [employer]IST CPT-61189 Sono retroperitoneal complete kidneys and bladder 17:15: 30 CDT CPT-51567 Abd compl w upright 16:09:25 CDT CPT-J1100 Decadron 8mg (Dexamethasone) 17:07:57 CDT CPT-35286 Abx/Therapy Injection 17:07:57 CDT CPT-J1100 Decadron 8mg (Dexamethasone) 16:55:24 CDT CPT-88148 Chest 2V Frontal and Lat 16:32:44 CDT
--- OUTSIDE RECORDS SUMMARY | 2016-11-04 14:41 | XMS REPORT | Clinical Summary ---
Author Author Admin, Dereck Organization [employer] Address Unknown Phone Unavailable Allergies, Adverse Reactions, [...] Active Ahmet Carbajal MD Generalized anxiety disorder [employer] well woman exam V72.31 Active Suzan Boo [...] MD Health screening ICD-V70.0 Inactive Suzan Boo [employer] Sinus tachycardia ICD-427.89 Inactive Suzan Boo [employer] Smoker/tobacco use disorder-smoking cessation discussed ICD-305.1 Inactive Vishal Hui MD Abdominal pain ICD-789.00 Inactive Vishal Hui MD Cellulitis ICD-682.9 Inactive Vishal Hui MD Pelvic pain ICD-625.9 Inactive Vishal Hui MD Abscess, skin ICD-682.9 Inactive Vishal uHi MD Physical examination ICD-V70.0 Inactive Vishal Hui [...] SOLN 30mL oral BID for IBS-C LACTULOSE 73920100411 Active Suzan Boo APRN Active BACTRIM DS 800-160 MG TABS 1 twice a day SULFAMETHOXAZOLE- TRIMETHOPRIM 70203196913 Active Suzan Boo APRN Active MUPIROCIN 2 % OINT apply twice a day MUPIROCIN 96815649587 Active Suzan Boo APRN Active TESSALON PERLES 100 MG CAPS 1 three times a day as needed for cough BENZONATATE 75304825056 No Longer Active Suzan Boo APRN Active BACTRIM DS 800-160 MG TABS 1 twice a day SULFAMETHOXAZOLE-TRIMETHOPRIM 25651370808 No Longer Active Suzan Boo APRN Active DIFLUCAN 150 MG TABS 1 by mouth for yeast FLUCONAZOLE 15763710696 No Longer Active Suzan Boo APRN Active EQ NICOTINE 21 MG/24HR TRANS PT24 Apply daily to stop smoking NICOTINE 11629387351 No Longer Active Suzan Boo APRN Active PREDNISONE 10 MG TABS 2 daily for 5 days then 1 daily for 5 days PREDNISONE 44349706953 No Longer Active Suzan Boo APRN Active LEVAQUIN 500 MG TABS 1 daily for infection LEVOFLOXACIN 57657002811 No Longer Active Suzan Boo APRN Active TROPICAMIDE 0.5 % OPHTH SOLN 1 drop PRN eye spasms TROPICAMIDE 28442121609 No Longer Active Suzan Boo APRN Active PREDNISONE 20 MG TAB 1 tablet daily x 4 days PREDNISONE 90409719252 No Longer Active Suzan Boo APRN Active ACETAMINOPHEN-CODEINE 120-12 MG/5ML SOLN 5 ml by mouth every 4-6 hours if needed for cough ACETAMINOPHEN-CODEINE 11617825735 No Longer Active Suzan Boo APRN Active KEFLEX 500 MG CAP 1 po qid CEPHALEXIN 01134496984 No Longer Active Suzan Boo APRN Active FLOVENT HFA 110 MCG/ACT AERO 2 puffs inhaled b.i.d. FLUTICASONE PROPIONATE HFA 41352869890 Active Renzo Thornton DO Active RISPERDAL 4 MG ORAL TABS 1 tab at bedtime RISPERIDONE 94281385514 Active Samantha MCDONALD Active ZOFRAN 4 MG TABS 1 po q6hr PRN Nausea ONDANSETRON HCL No Longer Active Suzan Boo APRN Active FLUTICASONE PROPIONATE 50 MCG/ACT SUSP 2 sprays each nostril daily before bed. FLUTICASONE PROPIONATE 66211704283 No Longer Active Suzan Boo APRN Active ASPIRIN 325 MG ORAL TABS 1 tab q.d ASPIRIN 06778038857 No Longer Active Suzan Boo APRN Active HALOPERIDOL 10 MG ORAL TABS 1 tab q.d HALOPERIDOL 21554332823 No Longer Active Suzan Boo APRN Active GUAIFENESIN-CODEINE 100-10 MG/5ML SYRP 5ml every 4 to 6 hours as needed for cough GUAIFENESIN-CODEINE 58596902368 No Longer Active Suzan Boo APRN Active ZITHROMAX Z-EARNEST 250 MG TABS 2 today and then 1 daily for 4 days AZITHROMYCIN 50360232526 No Longer Active Suzan Boo APRN Active CLONAZEPAM 1 MG ORAL TABS 1 twice a day and an additional 1 tablet every other day as needed for pseudoseizures or anxiety CLONAZEPAM 57789497260 Active Suzan Boo APRN Active HYDROCODONE-ACETAMINOPHEN 5-325 MG ORAL TABS 1 tab two times a day HYDROCODONE-ACETAMINOPHEN 50203801118 No Longer Active Ahmet Carbajal MD Active LAMICTAL 100 MG ORAL TABS 1 tab 2 times qd. LAMOTRIGINE 26898553112 Active Ahmet Carbajal MD Active PREDNISONE 20 MG TABS 2 daily for 5 days then 1 daily for 5 days PREDNISONE 39252948017 No Longer Active Ahmet Carbajal MD Active FLUTICASONE PROPIONATE 50 MCG/ACT SUSP 1 to 2 sprays each nostril daily for allergies FLUTICASONE PROPIONATE 24190829328 Active Tila Valenzuela Active BENADRYL 25 MG CAP 4 po at bedtime for insomnia DIPHENHYDRAMINE HCL 51520186762 No Longer Active Ahmet Cabrajal MD Active ADVAIR DISKUS 250-50 MCG/DOSE INH AEPB 1 puff twice a day for asthma FLUTICASONE-SALMETEROL 87410545955 No Longer Active Ahmet Carbajal MD Active KLONOPIN 1 MG ORAL TABS 1 tab po TID CLONAZEPAM 70835222853 No Longer Active Ahmet Cabrajal MD Active ABILIFY MAINTENA 400 MG IM SUSR 400mg injection every 26 days ARIPIPRAZOLE 07560696109 No Longer Active Ahmet Carbajal MD Active TRAMADOL HCL 50 MG TABS 1/2-1 tab TID PRN TRAMADOL HCL 86538868182 No Longer Active Ahmet Carbajal MD Active BACTRIM DS 800-160 MG TABS 1 twice a day SULFAMETHOXAZOLE- TRIMETHOPRIM 90649678412 No Longer Active Ahmet Carbajal MD Active PROAIR HFA 108 (90 BASE) MCG/ACT AERS 2 puffs four times a day as needed 2015 ALBUTEROL SULFATE 59096912202 Active Honey Louienick [employer] Active MONISTAT 7 COMBO PACK WOODROW 100 & 2 MG-% (9GM) VAG KIT 1 applicatorful per vagina q pm x 7 MICONAZOLE NITRATE 39685776809 No Longer Active Ahmet Carbajal MD Active FLAGYL 500 MG TAB 1 tablet by mouth bid METRONIDAZOLE 20951121601 No Longer Active Ahmet Carbajal MD Active OXYCODONE HCL ER 10 MG ORAL T12A 1/2 tab by mouth every 4 hours prn OXYCODONE HCL 64370406224 No Longer Active Ahmet Carbajal MD Active METHYLPREDNISOLONE 4 MG ORAL TABS po daily METHYLPREDNISOLONE 37817065058 No Longer Active Ahmet Carbajal MD Active LEVOFLOXACIN 500 MG ORAL TABS po daily LEVOFLOXACIN 52191892862 No Longer Active Ahmet Carbajal MD Active VIIBRYD 10 MG ORAL TABS Take 1 tablet once a day VILAZODONE HCL 64611492369 No Longer Active Ahmet Carbajal MD Active TOPAMAX 50 MG ORAL TABS 1 tab twice daily TOPIRAMATE 78631227668 No Longer Active Ahmet Carbajal MD Active DICLOFENAC SODIUM 50 MG TBEC 1 tablet by mouth four times daily PRN Pain 2015 DICLOFENAC SODIUM 01102514299 No Longer Active Ahmet Carbajal MD Active ADZENYS XR-ODT 6.3 MG ORAL TBED 1 tab po daily for ADHD AMPHETAMINE 19868933272 No Longer Active Ahmet Carbajal MD Active CHANTIX 1 MG TABS 1 twice a day to help quit smoking VARENICLINE TARTRATE 62500263979 No Longer Active Dipika Burgos MD Active CHANTIX STARTING MONTH EARNEST 0.5 MG X 11 & 1 MG X 42 TABS take as directed 2015 VARENICLINE TARTRATE 52221558121 No Longer Active Dipika Burgos MD Active TESSALON PERLES 100 MG CAP 1 to 2 tablets by mouth 3 times daily as needed for cough BENZONATATE 66363040416 No Longer Active Luigi Martínez APRN Active IMITREX 50 MG ORAL TABS 0.5 po x 1 PRN Headache. May repeat dose x 1 in 2 hours if needed SUMATRIPTAN SUCCINATE 07594764126 Active Ahmet Carbajal MD Active HYDROCODONE-ACETAMINOPHEN 5-325 MG TABS 1 to 2 four times a day as needed for pain use until can be seen by specialist HYDROCODONE- ACETAMINOPHEN 57830108906 No Longer Active Vishal Hui MD Active PROAIR HFA 108 (90 BASE) MCG/ACT AERS 2 puffs four times a day as needed 2015 ALBUTEROL SULFATE 88485095109 No Longer Active Vishal Hui MD Active PREDNISONE 20 MG TABS 2 daily for 5 days then 1 daily for 5 days PREDNISONE 70257400146 No Longer Active Vishal Hui MD Active ZITHROMAX Z-EARNEST 250 MG TABS 2 today and then 1 daily for 4 days AZITHROMYCIN 28671641797 No Longer Active Vishal Hui MD Active DICLOFENAC POTASSIUM TABS Take 1 tablet twice a day (pt. is not sure of the dose.) DICLOFENAC POTASSIUM TABS 65814122663 No Longer Active Vishal Hui MD Active VERAPAMIL HCL ER 120 MG ORAL CR-TABS Take 1 tablet by mouth twice a day. VERAPAMIL HCL 95441866267 Active Vishal Hui MD Active FLAGYL 500 MG TAB 1 tablet by mouth bid METRONIDAZOLE 92950856622 No Longer Active Vishal Hui MD Active VALIUM 5 MG TAB Take 1-2 tablets daily DIAZEPAM 62498347177 No Longer Active Fabiola Johnson APRN Active METOPROLOL TARTRATE 25 MG ORAL TABS 1/2 tablet twice daily for heart rate and blood pressure METOPROLOL TARTRATE 91027507024 No Longer Active Fabiola Johnson APRN Active MIRALAX ORAL POWD 17GMS DAILY IN WATER POLYETHYLENE GLYCOL 3350 53896480393 Active TAMARA Casey Active MIRALAX PACK 1 po qd PRN Constipation POLYETHYLENE GLYCOL 3350 72448784708 No Longer Active Ahmet Carbajal MD Active MINIPRESS 2 MG CAPS 4 cap po at night PRAZOSIN HCL 00056151775 No Longer Active Ahmet Carbajal MD Active PIROXICAM 20 MG CAPS 1 cap po qd PRN Pain PIROXICAM 70027495513 No Longer Active Ahmet Carbajal MD Active TRAMADOL HCL 50 MG TABS 1-2 po TID PRN Pain TRAMADOL HCL 57928163701 No Longer Active Ahmet Carbajal MD Active METOPROLOL TARTRATE 50 MG TAB 1 po bid METOPROLOL TARTRATE 21942114648 No Longer Active Ahmet Carbajal MD Active ABILIFY 15 MG ORAL TABS 1 tab daily ARIPIPRAZOLE 13140619540 No Longer Active Ahmet Carbajal MD Active PROZAC 20 MG ORAL CAPS 1 tab daily FLUOXETINE HCL 18075887984 No Longer Active Ahmet Carbajal MD Active AMBIEN 5 MG ORAL TABS 1 tab at bedtime ZOLPIDEM TARTRATE 93974027240 No Longer Active Ahmet Carbajal MD Active PREDNISONE 20 MG TAB 2 tabs daily for 4 days, 1 tab daily for 4 days, 1/2 tab daily for 4 days PREDNISONE 05117294947 No Longer Active Ahmet Carbajal MD Active KEFLEX 500 MG CAP 1 po TID x 10 days CEPHALEXIN 13853701849 No Longer Active Vishal Hui MD Active SAPHRIS 5 MG SUBL 1 po bid ASENAPINE MALEATE 41978525975 No Longer Active Jillina Mauricio [employer] Active LATUDA 80 MG TABS Take one by mouth daily LURASIDONE HCL 74191593608 No Longer Active Jillina Fralebron [employer] Active AMLODIPINE BESYLATE 5 MG TABS 1 tablet by mouth daily AMLODIPINE BESYLATE 29537141846 No Longer Active Jillina Mauricio NORIEGA Active AMITRIPTYLINE HCL 100 MG TAB one at hs AMITRIPTYLINE HCL 94213459972 No Longer Active Vishal Hui MD Active TRAZODONE HCL 100 MG TAB take 1 at bedtime TRAZODONE HCL 13311469670 No Longer Active Vishal Hui MD Active VYVANSE 40 MG CAPS 1 daily, LISDEXAMFETAMINE DIMESYLATE 26772103225 No Longer Active Vishal Hui MD Active IBUPROFEN 600 MG TAB 1 po TID PRN IBUPROFEN 97066203003 No Longer Active Vishal Hui MD Active PROZAC 20 MG CAP Take one by mouth daily FLUOXETINE HCL 32219397796 No Longer Active Vishal Hui MD Active BACTRIM DS 800-160 MG TABS 1 pill by mouth twice daily SULFAMETHOXAZOLE-TRIMETHOPRIM 53672225294 No Longer Active Sahara Rodriguez MD PhD Active DIFLUCAN 150 MG TAB 1 tablet by mouth daily FLUCONAZOLE 50363093387 No Longer Active Vishal Hui MD Active TIZANIDINE HCL 4 MG TABS 1 po q6hr PRN Muscle Spasm/Back Pain TIZANIDINE HCL 07213712594 Active Vishal Hui MD Active CLINDAMYCIN HCL 150 MG CAPS 1 four times a day CLINDAMYCIN HCL 20296939546 No Longer Active Neeraj Collins MD Active KEFLEX 500 MG ORAL CAPS 1 cap QID by mouth CEPHALEXIN 95694389074 No Longer Active Neeraj Collins MD Active DIFLUCAN 150 MG TABS 1 pill every other day x 2 doses FLUCONAZOLE 37931576081 No Longer Active Sahara Rodriguez MD PhD Active MELATONIN 3 MG CAPS 2 po q hs MELATONIN 17442888946 No Longer Active Sahara Rodriguez MD PhD Active MULTIVITAMINS CAPS Take one by mouth daily MULTIPLE VITAMIN 69320823378 No Longer Active Sahara Rodriguez MD PhD Active BACTRIM DS 800-160 MG TAB 1 tab by mouth twice daily TRIMETHOPRIM-SULFAMETHOXAZOLE 64029526701 No Longer Active Sahara Rodriguez MD PhD Active [facility] PROBIOTIC ORAL CHEW 2 daily po PROBIOTIC PRODUCT 85672291175 No Longer Active Sahara Rodriguez MD PhD Active BACTRIM DS 800-160 MG TABS 1 po BID x 7 days SULFAMETHOXAZOLE-TRIMETHOPRIM 96818842763 No Longer Active Vishal Hui MD Active CHANTIX STARTING MONTH EARNEST 0.5 MG X 11 & 1 MG X 42 TABS 0.5mg daily for 3 days , then 0.5mg BID for 4 days, then 1mg BID VARENICLINE TARTRATE 39260599102 No Longer Active TAMARA Gray Active VERAPAMIL HCL CR 120 MG TAB CR 1 po bid VERAPAMIL HCL 13552825547 No Longer Active Vishal Hui MD Active METOPROLOL SUCCINATE 50 MG TB24 1 tablet by mouth daily METOPROLOL SUCCINATE 63631243407 No Longer Active Vishal Hui MD Active SAPHRIS 10 MG SUBL 1 tab po bid ASENAPINE MALEATE 39868284625 No Longer Active Vishal Hui MD Active LISINOPRIL 20 MG TABS 1 tab po qd LISINOPRIL 97633252503 No Longer Active Vishal Hui MD Active LATUDA 20 MG TABS Take one by mouth daily LURASIDONE HCL 66675716273 No Longer Active Vishal Hui MD Active TRAZODONE HCL 50 MG TABS 1/2 tab po qd prn for anxiety TRAZODONE HCL 83727803114 No Longer Active Vishal Hui MD Active OMEPRAZOLE 20 MG TBEC 1 po q a.m. 30min prior to first food intake OMEPRAZOLE 00537745054 Active TAMARA Casey Active RANITIDINE HCL 150 MG CAPS 1 twice a day RANITIDINE HCL 64164147135 Active Jillina Fralebron [employer] Active LINZESS 290 MCG CAPS Take one by mouth daily LINACLOTIDE 03462866205 No Longer Active Vishal Hui MD Active SAPHRIS 5 MG SUBL 1 tab po qd ASENAPINE MALEATE 57034293953 No Longer Active Vishal Hui MD Active ZALEPLON 10 MG CAPS 1 cap po every other night ZALEPLON 38255865170 No Longer Active Vishal Hui MD Active LYRICA 50 MG CAPS 1 tab po TID PREGABALIN 56644436043 No Longer Active Vishal Hui MD Active LORATADINE 10 MG TABS 1 tab po qd LORATADINE 77010555522 No Longer Active Vishal Hui MD Active VERAPAMIL HCL ER 180 MG CR-TABS 1 tab po bid VERAPAMIL HCL 51436499011 No Longer Active Vishal Hui MD Active MIRALAX POWD 1 capfull once daily POLYETHYLENE GLYCOL 3350 02510045745 No Longer Active Vishal Hui MD Active PREDNISONE 20 MG TABS 1 tab po qd PREDNISONE 20199428727 No Longer Active Renzo Thornton DO Active LEVOFLOXACIN 500 MG TABS 1 tab po qd LEVOFLOXACIN 52485613776 No Longer Active Renzo Thornton DO Active BUSPIRONE HCL 15 MG TABS 1 tab po TID BUSPIRONE HCL 06675440045 No Longer Active Renzo Thornton DO Active BENZTROPINE MESYLATE 1 MG TABS 1 tab po qd BENZTROPINE MESYLATE 72307986557 No Longer Active Renzo Thornton DO Active ATENOLOL 25 MG TABS 1 tab po qd ATENOLOL 16319618948 No Longer Active Renzo Thornton DO Active ESCITALOPRAM OXALATE 20 MG TABS 1 tab po qd ESCITALOPRAM OXALATE 56634744519 No Longer Active Renzo Thornton DO Active ADVAIR DISKUS 250-50 MCG/DOSE AEPB 1 puff BID FLUTICASONE-SALMETEROL 00691514549 No Longer Active Renzo Thornton DO Active PREDNISONE 20 MG TAB 2 tabs daily for 3 days, 1 tab daily for 3 days, 1/2 tab daily for 2 days PREDNISONE 74057073346 No Longer Active Vishal Hui MD Active CEFDINIR 300 MG CAPS by mouth twice a day CEFDINIR 75812618765 No Longer Active Vishal Hui MD Active LANSOPRAZOLE 30 MG CPDR 1 cap po qd LANSOPRAZOLE 29084421150 No Longer Active Vishal Hui MD Active BACLOFEN 20 MG TABS 1 tab po tid BACLOFEN 03821035453 No Longer Active Vishal Hui MD Active ADVAIR DISKUS 250-50 MCG/DOSE AEPB 1 puff BID ADVAIR DISKUS 250-50 MCG/DOSE AEPB FLUTICASONE-SALMETEROL Inactive ESCITALOPRAM OXALATE 20 MG TABS 1 tab po qd ESCITALOPRAM OXALATE 20 MG TABS 792391 ESCITALOPRAM OXALATE Inactive ATENOLOL 25 MG TABS 1 tab po qd ATENOLOL 25 MG TABS 305789 ATENOLOL Inactive BENZTROPINE MESYLATE 1 MG TABS 1 tab po qd BENZTROPINE MESYLATE 1 MG TABS 138198 BENZTROPINE MESYLATE Inactive BUSPIRONE HCL 15 MG TABS 1 tab po TID BUSPIRONE HCL 15 MG TABS 433649 BUSPIRONE HCL Inactive LEVOFLOXACIN 500 MG TABS 1 tab po qd LEVOFLOXACIN 500 MG TABS 699298 LEVOFLOXACIN Inactive PREDNISONE 20 MG TABS 1 tab po qd PREDNISONE 20 MG TABS 536432 PREDNISONE Inactive MIRALAX POWD 1 capfull once daily MIRALAX POWD 471282 POLYETHYLENE GLYCOL 3350 Inactive VERAPAMIL HCL ER 180 MG CR-TABS 1 tab po bid VERAPAMIL HCL ER 180 MG CR-TABS VERAPAMIL HCL Inactive LORATADINE 10 MG TABS 1 tab po qd LORATADINE 10 MG TABS 331551 LORATADINE Inactive LYRICA 50 MG CAPS 1 tab po TID LYRICA 50 MG CAPS PREGABALIN Inactive ZALEPLON 10 MG CAPS 1 cap po every other night ZALEPLON 10 MG CAPS 405468 ZALEPLON Inactive SAPHRIS 5 MG SUBL 1 tab po qd SAPHRIS 5 MG SUBL ASENAPINE MALEATE Inactive TRAZODONE HCL 50 MG TABS 1/2 tab po qd prn for anxiety TRAZODONE HCL 50 MG TABS 034122 TRAZODONE HCL Inactive LATUDA 20 MG TABS Take one by mouth daily LATUDA 20 MG TABS LURASIDONE HCL Inactive LISINOPRIL 20 MG TABS 1 tab po qd LISINOPRIL 20 MG TABS 416228 LISINOPRIL Inactive SAPHRIS 10 MG SUBL 1 [...] twice daily BACTRIM DS 800-160 MG TAB 043951 TRIMETHOPRIM-SULFAMETHOXAZOLE Inactive MULTIVITAMINS CAPS Take one by mouth daily MULTIVITAMINS CAPS MULTIPLE VITAMIN Inactive MELATONIN 3 MG CAPS 2 po q hs MELATONIN 3 MG CAPS 686253 MELATONIN Inactive KEFLEX 500 MG ORAL CAPS 1 cap QID by mouth KEFLEX 500 MG ORAL CAPS 162045 CEPHALEXIN Inactive CLINDAMYCIN HCL 150 MG CAPS 1 four times a day CLINDAMYCIN HCL 150 MG CAPS 851093 CLINDAMYCIN HCL Inactive DIFLUCAN 150 MG TAB 1 tablet by mouth daily DIFLUCAN 150 MG TAB 020687 FLUCONAZOLE Inactive PROZAC 20 MG CAP Take one by mouth daily PROZAC 20 MG CAP 738312 FLUOXETINE HCL Inactive IBUPROFEN 600 MG TAB 1 po TID PRN IBUPROFEN 600 MG TAB 976358 IBUPROFEN Inactive VYVANSE 40 MG CAPS 1 daily, VYVANSE 40 MG CAPS LISDEXAMFETAMINE DIMESYLATE Inactive TRAZODONE HCL 100 MG TAB take 1 at bedtime TRAZODONE HCL 100 MG TAB 624942 TRAZODONE HCL Inactive AMITRIPTYLINE HCL 100 MG TAB one at hs AMITRIPTYLINE HCL 100 MG TAB 903644 AMITRIPTYLINE HCL Inactive AMLODIPINE BESYLATE 5 MG TABS 1 tablet by mouth daily AMLODIPINE BESYLATE 5 MG TABS 974674 AMLODIPINE BESYLATE Inactive LATUDA 80 MG TABS Take one by mouth daily LATUDA 80 MG TABS LURASIDONE HCL Inactive SAPHRIS 5 MG SUBL 1 po bid SAPHRIS 5 MG SUBL ASENAPINE MALEATE Inactive PREDNISONE 20 MG TAB 2 tabs daily for 4 days, 1 tab daily for 4 days, 1/2 tab daily for 4 days PREDNISONE 20 MG TAB 368357 PREDNISONE Inactive AMBIEN 5 MG ORAL TABS 1 tab at bedtime AMBIEN 5 MG ORAL TABS 728281 ZOLPIDEM TARTRATE Inactive PROZAC 20 MG ORAL CAPS 1 tab daily PROZAC 20 MG ORAL CAPS 121841 FLUOXETINE HCL Inactive ABILIFY 15 MG ORAL TABS 1 tab daily ABILIFY 15 MG ORAL TABS 793226 ARIPIPRAZOLE Inactive METOPROLOL TARTRATE 50 MG TAB 1 po bid METOPROLOL TARTRATE 50 MG TAB 543342 METOPROLOL TARTRATE Inactive TRAMADOL HCL 50 MG TABS 1-2 po TID PRN Pain TRAMADOL HCL 50 MG TABS 900194 TRAMADOL HCL Inactive PIROXICAM 20 MG CAPS 1 cap po qd PRN Pain PIROXICAM 20 MG CAPS 267079 PIROXICAM Inactive MINIPRESS 2 MG CAPS 4 cap po at night MINIPRESS 2 MG CAPS 269479 PRAZOSIN HCL Inactive MIRALAX PACK 1 po qd PRN Constipation MIRALAX PACK 473163 POLYETHYLENE GLYCOL 3350 Inactive METOPROLOL TARTRATE 25 MG ORAL TABS 1/2 tablet twice daily for heart rate and blood pressure METOPROLOL TARTRATE 25 MG ORAL TABS 644109 METOPROLOL TARTRATE Inactive VALIUM 5 MG TAB Take 1-2 tablets daily VALIUM 5 MG TAB 031855 DIAZEPAM Inactive FLAGYL 500 MG TAB 1 tablet by mouth bid FLAGYL 500 MG TAB 556855 METRONIDAZOLE Inactive DICLOFENAC POTASSIUM TABS Take 1 tablet twice a day (pt. is not sure of the dose.) DICLOFENAC POTASSIUM TABS DICLOFENAC POTASSIUM TABS Inactive ZITHROMAX Z-EARNEST 250 MG TABS 2 today and then 1 daily for 4 days ZITHROMAX Z-EARNEST 250 MG TABS 8538696 AZITHROMYCIN Inactive PREDNISONE 20 MG TABS 2 daily for 5 days then 1 daily for 5 days PREDNISONE 20 MG TABS 594394 PREDNISONE Inactive PROAIR HFA 108 (90 BASE) MCG/ACT AERS 2 puffs four times a day as needed 2015 PROAIR HFA 108 (90 BASE) MCG/ACT AERS ALBUTEROL SULFATE Inactive HYDROCODONE-ACETAMINOPHEN 5-325 MG TABS 1 to 2 four times a day as needed for pain use until can be seen by specialist HYDROCODONE- ACETAMINOPHEN 5-325 MG TABS 495307 HYDROCODONE-ACETAMINOPHEN Inactive TESSALON PERLES 100 MG CAP 1 to 2 tablets by mouth 3 times daily as needed for cough TESSALON PERLES 100 MG CAP 988138 BENZONATATE Inactive CHANTIX STARTING MONTH EARNEST 0.5 [...] Pain 2015 DICLOFENAC SODIUM 50 MG TBEC 997888 DICLOFENAC SODIUM Inactive TOPAMAX 50 MG ORAL TABS 1 tab twice daily TOPAMAX 50 MG ORAL TABS 846349 TOPIRAMATE Inactive VIIBRYD 10 MG ORAL TABS Take 1 tablet once a day VIIBRYD 10 MG ORAL TABS VILAZODONE HCL Inactive LEVOFLOXACIN 500 MG ORAL TABS po daily LEVOFLOXACIN 500 MG ORAL TABS 405990 LEVOFLOXACIN Inactive METHYLPREDNISOLONE 4 MG ORAL TABS po daily METHYLPREDNISOLONE 4 MG ORAL TABS 126252 METHYLPREDNISOLONE Inactive OXYCODONE HCL ER 10 MG ORAL T12A 1/2 tab by mouth every 4 hours prn OXYCODONE HCL ER 10 MG ORAL T12A OXYCODONE HCL Inactive FLAGYL 500 MG TAB 1 tablet by mouth bid FLAGYL 500 MG TAB 496009 METRONIDAZOLE Inactive MONISTAT 7 COMBO PACK WOODROW 100 & 2 MG-% (9GM) VAG KIT 1 applicatorful per vagina q pm x 7 MONISTAT 7 COMBO PACK WOODROW 100 & 2 MG-% (9GM) VAG KIT MICONAZOLE NITRATE Inactive BACTRIM DS 800-160 MG TABS 1 twice a day BACTRIM DS 800-160 MG TABS 950699 SULFAMETHOXAZOLE-TRIMETHOPRIM Inactive TRAMADOL HCL 50 MG TABS 1/2-1 tab TID PRN TRAMADOL HCL 50 MG TABS 674219 TRAMADOL HCL Inactive ABILIFY MAINTENA 400 MG IM SUSR 400mg injection every 26 days ABILIFY MAINTENA 400 MG IM SUSR ARIPIPRAZOLE Inactive KLONOPIN 1 MG ORAL TABS 1 tab po TID KLONOPIN 1 MG ORAL TABS 083490 CLONAZEPAM Inactive ADVAIR DISKUS 250-50 MCG/DOSE INH AEPB 1 puff twice a day for asthma ADVAIR DISKUS 250-50 MCG/DOSE INH AEPB FLUTICASONE- SALMETEROL Inactive BENADRYL 25 MG CAP 4 po at bedtime for insomnia BENADRYL 25 MG CAP DIPHENHYDRAMINE HCL Inactive PREDNISONE 20 MG TABS 2 daily for 5 days then 1 daily for 5 days PREDNISONE 20 MG TABS 697966 PREDNISONE Inactive HYDROCODONE-ACETAMINOPHEN 5-325 MG ORAL TABS 1 tab two times a day HYDROCODONE-ACETAMINOPHEN 5-325 MG ORAL TABS 226519 HYDROCODONE-ACETAMINOPHEN Inactive ZITHROMAX Z-EARNEST 250 MG TABS 2 today and then 1 daily for 4 days ZITHROMAX Z-EARNEST 250 MG TABS 8394290 AZITHROMYCIN Inactive GUAIFENESIN-CODEINE 100-10 MG/5ML SYRP 5ml every 4 to 6 hours as needed for cough GUAIFENESIN-CODEINE 100-10 MG/5ML SYRP 339929 GUAIFENESIN-CODEINE Inactive HALOPERIDOL 10 MG ORAL TABS 1 tab q.d HALOPERIDOL 10 MG ORAL TABS 223092 HALOPERIDOL Inactive ASPIRIN 325 MG ORAL TABS 1 tab q.d ASPIRIN 325 MG ORAL TABS 874637 ASPIRIN Inactive FLUTICASONE PROPIONATE 50 MCG/ACT SUSP 2 sprays each nostril daily before bed. FLUTICASONE PROPIONATE 50 MCG/ACT SUSP 4251946 FLUTICASONE PROPIONATE Inactive ZOFRAN 4 MG TABS 1 po q6hr PRN Nausea ZOFRAN 4 MG TABS 238152 ONDANSETRON HCL Inactive KEFLEX 500 MG CAP 1 po qid KEFLEX 500 MG CAP 817151 CEPHALEXIN Inactive ACETAMINOPHEN-CODEINE 120-12 MG/5ML SOLN 5 ml by mouth every 4-6 hours if needed for cough ACETAMINOPHEN-CODEINE 120-12 MG/5ML SOLN 923853 ACETAMINOPHEN-CODEINE Inactive PREDNISONE 20 MG TAB 1 tablet daily x 4 days PREDNISONE 20 MG TAB 682277 PREDNISONE Inactive TROPICAMIDE 0.5 % OPHTH SOLN 1 drop PRN eye spasms TROPICAMIDE 0.5 % OPHTH SOLN 237156 TROPICAMIDE Inactive LEVAQUIN 500 MG TABS 1 daily for infection LEVAQUIN 500 MG TABS 235441 LEVOFLOXACIN Inactive PREDNISONE 10 MG TABS 2 daily for 5 days then 1 daily for 5 days PREDNISONE 10 MG TABS 838053 PREDNISONE Inactive EQ NICOTINE 21 MG/24HR TRANS [...] for cough TESSALON PERLES 100 MG CAPS 114605 BENZONATATE Inactive CEFDINIR 300 MG CAPS by mouth twice a day CEFDINIR 300 MG CAPS 191636 CEFDINIR Inactive PREDNISONE 20 MG TAB 2 tabs daily for 3 days, 1 tab daily for 3 days, 1/2 tab daily for 2 days PREDNISONE 20 MG TAB 475534 PREDNISONE Inactive BACTRIM DS 800-160 MG TABS 1 po BID x 7 days BACTRIM DS 800-160 MG TABS 19820521 SULFAMETHOXAZOLE-TRIMETHOPRIM Inactive DIFLUCAN 150 MG TABS 1 pill every other day x 2 doses DIFLUCAN 150 MG TABS 19751126 FLUCONAZOLE Inactive BACTRIM DS 800-160 MG TABS 1 pill by mouth twice daily BACTRIM DS 800-160 MG TABS 486442 SULFAMETHOXAZOLE-TRIMETHOPRIM Inactive KEFLEX 500 MG CAP 1 po TID x 10 days KEFLEX 500 MG CAP [id number] CEPHALEXIN Inactive Advance Directives Directive Description Start [...] % 11.0-15.0 platelet count 443 THOUSAND/UL 10*3/mm3 039-462 4719/03/01 mean platelet volume 8.2 fL 7.5-12.5 leukocyte [...] % 11.0-15.0 platelet count 349 THOUSAND/UL 10*3/mm3 680-314 2100/04/12 mean platelet volume 8.4 fL 7.5-12.5 Lab [...] 369 10^3/MM^3 10*3/mm3 142-424 Lab Report: Chlamydia/GC [id number] - Lab chlamydia DNA probe NOT DETECTED NOT DETECTED Lab Report: Chlamydia/GC [id number] - Microbiology Neisseria gonorrhoeae DNA probe NOT DETECTED NOT DETECTED Lab Report: Chlamydia/GC APTIMA/[id number], Urinalysis, Complete, with Reflex ... - Lab chlamydia DNA probe NOT DETECTED NOT DETECTED Lab Report: Chlamydia/GC APTIMA/[id number], Urinalysis, Complete, with Reflex ... - Microbiology Neisseria gonorrhoeae DNA probe NOT DETECTED NOT DETECTED Lab Report: Chlamydia/GC APTIMA/[id number], Urinalysis, Complete, with Reflex ... - Urinalysis microalbumin/total urine volume 2 mg/L Units converted. See lab report for original value. microalbumin/creatinine ratio, urine 9 MCG/MG CREAT mg/L <30 Lab Report: Comp. Metabolic Panel - Chemistry blood glucose 80 mg/dL 65-110 chloride, serum 103 mmol/L 98-107 potassium, serum 5.0 mmol/L 3.5-5.2 carbon dioxide, venous blood 33.7 mmol/L 21.0-32.0 sodium, serum 140 mmol/L 103-824 7726/06/08 sodium, serum 142 mmol/L 939-618 0030/06/08 carbon dioxide, venous blood 27.6 mmol/L 21.0-32.0 [...] mg/dL Encounters Code Encounter Date Provider Facility CPT-10907 Level 4 Est. Patient 10:49:34 [facility]-32019 Level 3 Est. Patient 10:00:25 [facility]T [facility] CPT-75780 Level 3 Est. Patient 10:29:30 [facility] CPT-73753 Level 3 Est. Patient 11:04:38 CDT Renzo Thornton [facility] CPT-31071 Level 3 Est. Patient 11:15:58 BAKER HELPER Renzo Thornton [facility] CPT-39485 Level 3 Est. Patient 15:28:23 BAKER HELPER Suzanthuy Boo [facility] CPT-63743 Level 4 Est. Patient 10:20:54 BAKER HELPER [facility] CPT-53930 Level 3 Est. Patient 11:47:37 BAKER HELPER Ahmet Carbajal MD [facility] CPT-68549 Level 3 Est. Patient 10:40:11 BAKER HELPER Ahmet Carbajal MD [facility] CPT-40812 Level 3 Est. Patient 15:07:06 BAKER HELPER Neeraj Collins MD [facility] CPT-39747 Level 4 Est. Patient 14:45:00 BAKER HELPER Ahmet Carbajal MD [facility] CPT-31497 Level 3 Est. Patient 13:59:59 CDT Luigi Martínez [facility] CPT-08723 Level 3 Est. Patient 18:18:53 CDT Neeraj Collins MD [facility] CPT-75680 Level 3 Est. Patient 15:50:44 CDT Vishal Hui MD [facility] CPT-81010 Level 3 Est. Patient 11:36:17 CDT Ahmet Carbajal MD [facility] CPT-60751 Level 3 Est. Patient 13:29:16 CDT Vishal Hui MD [facility] CPT-07956 Level 3 Est. Patient 14:27:52 CDT Neeraj Collins MD [facility] CPT-13929 Level 3 Est. Patient 08:56:03 CDT Luigi Martínez [facility] CPT-29281 Level 4 Est. Patient 12:11:48 CDT Fabiola Johnson [facility] CPT-80224 Level 3 New Patient 16:53:37 CDT Albert Caldera MD [facility] CPT-71011 Level 3 Est. Patient 11:25:49 CDT Renzo Thornton DO [facility] CPT-12164 Level 3 Est. Patient 15:22:01 CDT Ahmet Carbajal MD [facility] CPT-74443 Level 4 Est. Patient 09:00:51 BAKER HELPER Vishal Hui MD [facility] CPT-09770 Level 3 Est. Patient 11:37:33 BAKER HELPER Vishal Hui MD [facility] CPT-68829 Level 3 Est. Patient 08:41:09 BAKER HELPER Vishal Hui MD [facility] CPT-68256 Level 4 Est. Patient 10:19:35 BAKER HELPER Vishal Hui MD [facility] CPT-13720 Level 3 Est. Patient 13:35:45 CDT Vishal Hui MD [facility] CPT-99518 Level 4 Est. Patient 10:08:37 CDT Vishal Hui MD [facility] CPT-40068 Level 3 Est. Patient 11:22:10 CDT Vishal Hui MD [facility] CPT-26168 Level 3 Est. Patient 11:03:32 CDT Sahara Rodriguez MD [facility] CPT-84850 Level 3 Est. Patient 09:41:35 CDT Vishal Hui MD [facility] CPT-84531 Level 3 Est. Patient 12:00:41 CDT Neeraj Collins MD [facility] CPT-48768 Level 3 Est. Patient 09:16:24 CDT Vishal Hui MD [facility] CPT-76438 Level 4 Est. Patient 13:59:09 CDT Neeraj Collins MD [facility] CPT-32302 Level 3 Est. Patient 15:19:43 CDT Renzo Thornton DO [facility] CPT-29498 Level 3 Est. Patient 18:10:26 CDT Sahara Rodriguez MD PhD [facility] CPT-28552 Level 3 Est. Patient 14:49:50 CDT Vishal Hui MD [facility] CPT-64709 Level 4 Est. Patient 18:41:46 CDT Neeraj Collins MD [facility] CPT-23023 Level 4 Est. Patient 09:18:38 BAKER HELPER Vishal Hui MD [facility] CPT-43477 Level 3 Est. Patient 14:43:55 BAKER HELPER Vishal Hui MD [facility] CPT-85799 Level 3 Est. Patient 15:26:33 BAKER HELPER Sahara Rordiguez MD, PhD [facility] CPT-32259 Level 3 Est. Patient 10:32:14 BAKER HELPER Vishal Hui MD [facility] CPT-37054 Level 3 Est. Patient 15:12:52 BAKER HELPER Vishal Hui MD [facility] CPT-38400 Level 4 Est. Patient 09:19:27 CDT Vishal Hui MD [facility] CPT-62993 Level 3 Est. Patient 15:53:00 CDT Renzo Thornton [facility] CPT-06384 Level 3 Est. Patient 15:50:30 CDT Renzo Thornton [facility] CPT-65387 Level 3 Est. Patient 16:55:24 CDT Vishal Hui MD [facility] Procedures Code Procedure Name Date Entry Date Standard Description CPT-38339 Venipuncture Draw Fee 08:41:12 CDT CPT-06541 Abd compl w upright - XRAY USE ONLY 10:27:59 CDT 06/28 CPT-86595 Smoking Cessation counseling 11:15:58 BAKER HELPER CPT-G0439 [facility] Annual Wellness Exam 09:30:58 BAKER HELPER CPT-34857 TSH - LAB USE ONLY 08:50:26 BAKER HELPER CPT-55110 CBC - LAB USE ONLY 08:50:26 BAKER HELPER CPT-74297 Venipuncture Draw Fee 08:50:26 BAKER HELPER CPT-99997 Abx/Therapy Injection 17:34:30 BAKER HELPER CPT-79200 Nexplanon Removal with Reinsertion 14:09:32 CDT CPT-J7307 Nexplanon (Implant) 14:09:32 CDT CPT-OV Office Visit 14:09:32 CDT CPT-74636 UA w micro - LAB USE ONLY 16:21:13 CDT CPT-91100 Wet Mount - LAB USE ONLY 16:21:13 CDT CPT-22235 First Vx - Ix admin for Medicare patients 14:37:47 CDT CPT-81483 Fluzone Preservative Free Intramuscular Suspension 14:37 :47 CDT CPT-12691 Abx/Therapy Injection 13:54:22 CDT CPT-51584 Abx/Therapy Injection 08:47:09 CDT CPT-68789 Abx/Therapy Injection 13:29:56 CDT CPT-35280 Abx/Therapy Injection 08:36:16 CDT CPT-13175 Wet Mount - LAB USE ONLY 17:44:58 CDT CPT-29844 UA w micro - LAB USE ONLY 17:44:58 CDT CPT-52698 CMP - LAB USE ONLY 17:44:58 CDT CPT-90054 Venipuncture Draw Fee 17:44:58 CDT CPT-49912 Cervical Min 4V - XRAY USE ONLY 09:01:40 CDT CPT-37590 Chest 2V Frontal and Lat - XRAY USE ONLY 11:06:31 CDT CPT-89123 EKG Trac and Interp - XRAY USE ONLY 11:31:43 CDT 08/26 CPT-J3420 Vitamin B12 1000mcg (Cyanocobalamin) 08:10:26 BAKER HELPER 04/12 CPT-42649 Abx/Therapy Injection 08:10:26 BAKER HELPER CPT-G0438 Initial Annual Wellness Exam 19:01:01 BAKER HELPER CPT-J3420 Vitamin B12 1000mcg (Cyanocobalamin) 16:57:46 CDT 08/14 CPT-14521 Recombivax HB Injection Suspension 5 MCG/0.5ML 08:37:50 BAKER HELPER CPT-82243 Immunization Single Admin 08:37:50 BAKER HELPER CPT-J3420 Vitamin B12 1000mcg (Cyanocobalamin) 08:32:16 BAKER HELPER 03/11 CPT-46874 Abx/Therapy Injection 08:32:16 BAKER HELPER CPT-28884 Chest 2V Frontal and Lat 11:46:38 BAKER HELPER CPT-07282 Venipuncture Draw Fee 09:12:45 BAKER HELPER CPT-J3420 Vitamin B12 1000mcg (Cyanocobalamin) 08:50:15 BAKER HELPER 02/08 CPT-78861 Abx/Therapy Injection 08:50:15 BAKER HELPER CPT-Cryo Cryotherapy 10:19:35 BAKER HELPER CPT-000 Give Appropriate Flu Vaccine 09:22:16 CDT CPT-J3420 Vitamin B12 1000mcg (Cyanocobalamin) 19:08:57 CDT 01/11 CPT-22912 Abx/Therapy Injection 19:08:57 CDT CPT-J3420 Vitamin B12 1000mcg (Cyanocobalamin) 08:19:08 CDT 12/11 CPT-65852 Abx/Therapy Injection 08:19:08 CDT CPT-J3420 Vitamin B12 1000mcg (Cyanocobalamin) 14:48:00 CDT 11/09 CPT-26206 Abx/Therapy Injection 14:47:59 CDT CPT-J3420 Vitamin B12 1000mcg (Cyanocobalamin) 08:34:04 CDT 10/09 CPT-70157 Abx/Therapy Injection 08:34:04 CDT CPT-J3420 Vitamin B12 1000mcg (Cyanocobalamin) 09:18:52 CDT 09/11 CPT-09147 Abx/Therapy Injection 09:18:52 CDT CPT-J3420 Vitamin B12 1000mcg (Cyanocobalamin) 08:35:44 CDT 09/04 CPT-09210 Abx/Therapy Injection 08:35:44 CDT CPT-68369 Immunization Single Admin 11:07:16 CDT CPT-00450 Hepatitis B adult IM 11:07:16 CDT CPT-J3420 Vitamin B12 1000mcg (Cyanocobalamin) 11:00:49 CDT 08/28 CPT-J1040 Depo Medrol 80 mg (Methyl Prednisolone Acetate) 11:00: 49 CDT CPT-58754 Abx/Therapy Injection 11:00:49 CDT CPT-J1040 Depo Medrol 80 mg (Methyl Prednisolone Acetate) 09:16: 23 CDT CPT-J3420 Vitamin B12 1000mcg (Cyanocobalamin) 08:27:05 CDT 08/20 CPT-38185 Abx/Therapy Injection 08:27:05 CDT CPT-58749 Recombivax HB Injection Suspension 5 MCG/0.5ML 10:00:41 CDT CPT-17926 Administration single or combination vaccine inc oral 10 :00:41 CDT CPT-03759 Sono transvag pelvis non OB uterus ovaries cervix 16:36: 57 CDT CPT-89937 LS spine comp w obliq 09:50:55 BAKER HELPER CPT-20007 Abd compl w upright 09:50:55 BAKER HELPER CPT-J1100 Decadron 4mg (Dexamethasone) 15:51:24 BAKER HELPER CPT-J1030 Depo Medrol 40 mg (Methyl Prednisolone Acetate) 15:51: 24 BAKER HELPER CPT-29628 Abx/Therapy Injection 15:51:24 BAKER HELPER CPT-J1100 Decadron 4mg (Dexamethasone) 15:26:33 BAKER HELPER CPT-J1030 Depo Medrol 40 mg (Methyl Prednisolone Acetate) 15:26: 33 BAKER HELPER CPT-70035 Sono retroperitoneal complete kidneys and bladder 17:15: 30 CDT CPT-53301 Abd compl w upright 16:09:25 CDT CPT-J1100 Decadron 8mg (Dexamethasone) 17:07:57 CDT CPT-54379 Abx/Therapy Injection 17:07:57 CDT CPT-J1100 Decadron 8mg (Dexamethasone) 16:55:24 CDT CPT-04441 Chest 2V Frontal and Lat 16:32:44 CDT
--- OUTSIDE RECORDS SUMMARY | 2016-11-04 14:41 | XMS REPORT ---
Author Author [facility] Medical Staff Organization [facility] Address [address] [place], [place] [id number] Phone [phone] Care Team Providers Care Gamma Facilities Operator Name Role Phone TINO ABRAMS MD PP [phone] Summary purpose TRANSITION OF CARE AUTO GENERATION Chief Complaint and Reason for Visit Admit Diagnosis 1 CELLULITIS OF FACE Problem list No authorized problems tracked for [...] tests and/or laboratory data RESULTS Routine Cultures [id number]:10:00 Wound Culture Plate Date and Time 07/30/2014 17:17 SourceCHEEK CULTURE REPORT Small Amount Staphylococcus aureus Sensitivity to follow. Release Date/Time: 07/31/2014 10:32 GRAM STAIN No Organisms Seen. Release Date/Time: 07/31/2014 10:02 ORGID #1:Small Amount METHICILLIN RESISTANT STAPH AUREUS Release Date/Time: 08/01/2014 07:35 Sensitivity #1: MRSA AMPICILLIN > 8 R AMOX CLAV>4/2R CLINDAMYCIN<=0.5S CEFAZOLIN8 R CIPROFLOXACIN> 2 R DAPTOMYCIN <=0.5S ERYTHROMYCIN > 4 R GENTAMICIN <=4S AMPICILLIN SULBACTAM 16/8R LEVOFLOXACIN 4 I LINEZOLID2 S MOXIFLOXACIN 2 S OXACILLIN> 2 R PENICILLIN > 8 R RIFAMPIN <=1S TRIMETHSULFA <=0.5/9.5 S TETRACYCLINE <=4S VANCOMYCIN 2 S History of procedures Procedure Code Code Type Description Date Performed Performing Physician 49716 CPT-4 SMEAR, GRAM STAIN 07-30-2014 MANAS SCHRADER 22344 CPT-4 CULTR BACTERIA, EXCEPT BLOOD 07-30-2014 MANAS SCHRADER A9270 CPT-4 NON-COVERED ITEM OR SERVICE 07-30-2014 MANAS SCHRADER A9270 CPT-4 NON-COVERED ITEM OR SERVICE 07-30-2014 MANAS SCHRADER 54756 CPT-4 CULTURE AEROBIC IDENTIFY 07-30-2014 MANAS SCHRADER 91222 CPT-4 MICROBE SUSCEPTIBLE, PAUL 07-30-2014 MANAS SCHRADER 78625 CPT-4 EMERGENCY DEPT VISIT 07-30-2014 MANAS SCHRADER 58226 CPT-4 EMERGENCY DEPT VISIT 07-30-2014 MANAS SCHRADER Functional status Functional Status Finding Observation Time Ambulation Asst Dev none : Abdomen Appearance round :00 Vick no :00 Urination normal :00 Quality sym/unlabored :00 Cough absent :00 Secretions no :00 Breath Sounds RUL clear :00 Breath Sounds RML clear :00 Breath Sounds RLL clear :00 Breath Sounds BENJA clear :00 Breath Sounds LLL clear :00 Airway natural : Oxygen no :35 Temp >100.4 no :00 Temp <96.8 no :00 Chills with rigors no :00 HR > 90bpm no :00 Respirations > 20 no :00 Systolic <90 no :00 headache stiff neck no :00 Nursing Note pt resting no needs :30 Vital signs Type Value Date Respiration Rate 20breaths per minute :35 Pulse 70beats per minute :35 Oxygen Saturation 100% :35 BP Systolic 109mmHg :35 BP Diastolic 73mmHg :35 Temperature 98.1F :35 Social history Type Value Smoking Status FORMER SMOKER Treatment Plan No treatment plan text is available for this visit. Hospital discharge instructions Dismissal Condition good Disposition on DC home DC Inst/Educ Give yes Med/Side Effects Rev yes PNE Vac yes Flu Vac 2014
--- OUTSIDE RECORDS SUMMARY | 2016-11-04 14:45 | XMS REPORT | Clinical Summary ---
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1 Inactive Suzan Boo LINE UP WORKER Abdominal pain, right upper quadrant ICD-789.01 Inactive Suzan Boo LINE UP WORKER Dark urine ICD-791.9 Inactive Suzan Boo APRN Preop exam ICD-V72.84 Inactive Suzan Boo LINE UP WORKER Medication List Medication Instructions Start Date Stop Date Generic Name NDC Status Provider Patient Instruction [id number] 50-325-40 MG TABS 1 to 2 four times a day as needed for headache [id number] Active Suzan Boo LINE UP WORKER Active METOCLOPRAMIDE HCL 10 MG TABS 1 two times as needed for nausea and headaches METOCLOPRAMIDE HCL 26549746870 Active Suzan Boo APRN Active NYSTATIN 925078 UNIT/GM CREA apply three times a day to yeast rash NYSTATIN 88751606414 Active Suzan Boo APRN Active AMITIZA 24 MCG ORAL CAPS one capsule twice daily LUBIPROSTONE 49255379823 Active Suzan Boo APRN Active MIRALAX ORAL POWD 17GMS DAILY IN WATER POLYETHYLENE GLYCOL 3350 37503199156 No Longer Active Suzan Boo APRN Active LACTULOSE 10 GM/15ML ORAL SOLN 30mL oral BID for IBS-C LACTULOSE 21937704942 No Longer Active Suzan Boo APRN Active BACTRIM DS 800-160 MG TAB Take one (1) tablet by mouth twice a day for 5 days TRIMETHOPRIM-SULFAMETHOXAZOLE 49105297121 No Longer Active Suzan Boo APRN Active MUPIROCIN 2 % OINT apply twice a day MUPIROCIN 63901423440 No Longer Active Suzan Boo APRN Active BACTRIM DS 800-160 MG TABS 1 twice a day SULFAMETHOXAZOLE-TRIMETHOPRIM 77805058296 No Longer Active Suzan Boo APRN Active DIFLUCAN 150 MG TABS 1 by mouth for yeast FLUCONAZOLE 09124957962 No Longer Active Suzan Boo APRN Active LINZESS 290 MCG ORAL CAPS 1 tab 30 min prior to first meal each day. LINACLOTIDE 47659647373 No Longer Active Sheila Calderon UNDERGROUND ELECTRICIAN Active AMITIZA 8 MCG ORAL CAPS 1 tab BID LUBIPROSTONE 23767028624 No Longer Active Lynda Madl UNDERGROUND ELECTRICIAN Active TESSALON PERLES 100 MG CAPS 1 three times a day as needed for cough BENZONATATE 66326471065 No Longer Active Suzan Boo APRN Active BACTRIM DS 800-160 MG TABS 1 twice a day SULFAMETHOXAZOLE-TRIMETHOPRIM 18833475480 No Longer Active Suzan Boo APRN Active DIFLUCAN 150 MG TABS 1 by mouth for yeast FLUCONAZOLE 45304835537 No Longer Active Suzan Boo APRN Active EQ NICOTINE 21 MG/24HR TRANS PT24 Apply daily to stop smoking NICOTINE 84756516611 No Longer Active Suzan Boo APRN Active PREDNISONE 10 MG TABS 2 daily for 5 days then 1 daily for 5 days PREDNISONE 18543540245 No Longer Active Suzan Boo APRN Active LEVAQUIN 500 MG TABS 1 daily for infection LEVOFLOXACIN 89328101961 No Longer Active Suzan Boo APRN Active TROPICAMIDE 0.5 % OPHTH SOLN 1 drop PRN eye spasms TROPICAMIDE 01723683731 No Longer Active Suzan Boo APRN Active PREDNISONE 20 MG TAB 1 tablet daily x 4 days PREDNISONE 00823355434 No Longer Active Suzan Boo APRN Active ACETAMINOPHEN-CODEINE 120-12 MG/5ML SOLN 5 ml by mouth every 4-6 hours if needed for cough ACETAMINOPHEN-CODEINE 37962054332 No Longer Active Suzan Boo APRN Active KEFLEX 500 MG CAP 1 po qid CEPHALEXIN 97129482890 No Longer Active Suzan Boo APRN Active FLOVENT HFA 110 MCG/ACT AERO 2 puffs inhaled b.i.d. FLUTICASONE PROPIONATE HFA 82678799307 Active Renzo Thornton DO Active RISPERDAL 4 MG ORAL TABS 1 tab at bedtime RISPERIDONE 25206594390 Active Samantha Rothman RMA Active ZOFRAN 4 MG TABS 1 po q6hr PRN Nausea ONDANSETRON HCL No Longer Active Suzan Boo APRN Active FLUTICASONE PROPIONATE 50 MCG/ACT SUSP 2 sprays each nostril daily before bed. FLUTICASONE PROPIONATE 83784759445 No Longer Active Suzan Boo APRN Active ASPIRIN 325 MG ORAL TABS 1 tab q.d ASPIRIN 71057933031 No Longer Active Suzan Boo APRN Active HALOPERIDOL 10 MG ORAL TABS 1 tab q.d HALOPERIDOL 51287107455 No Longer Active Suzan Boo APRN Active GUAIFENESIN-CODEINE 100-10 MG/5ML SYRP 5ml every 4 to 6 hours as needed for cough GUAIFENESIN-CODEINE 08087944363 No Longer Active Suzan Boo APRN Active ZITHROMAX Z-EARNEST 250 MG TABS 2 today and then 1 daily for 4 days AZITHROMYCIN 13402126424 No Longer Active Suzan Boo APRN Active CLONAZEPAM 1 MG ORAL TABS 1 twice a day and an additional 1 tablet every other day as needed for pseudoseizures or anxiety CLONAZEPAM 83626138985 Active Suzan Boo APRN Active HYDROCODONE-ACETAMINOPHEN 5-325 MG ORAL TABS 1 tab two times a day HYDROCODONE-ACETAMINOPHEN 35314872924 No Longer Active Ahmet Carbajal MD Active LAMICTAL 100 MG ORAL TABS 1 tab 2 times qd. LAMOTRIGINE 82153545230 Active Ahmte Carbajal MD Active PREDNISONE 20 MG TABS 2 daily for 5 days then 1 daily for 5 days PREDNISONE 39477451504 No Longer Active Ahmet Carbajal MD Active FLUTICASONE PROPIONATE 50 MCG/ACT SUSP 1 to 2 sprays each nostril daily for allergies FLUTICASONE PROPIONATE 59617944781 Active Tila Valenzuela Active BENADRYL 25 MG CAP 4 po at bedtime for insomnia DIPHENHYDRAMINE HCL 20119625316 No Longer Active Ahmet Carbajal MD Active ADVAIR DISKUS 250-50 MCG/DOSE INH AEPB 1 puff twice a day for asthma FLUTICASONE-SALMETEROL 63245770909 No Longer Active Ahmte Carbajal MD Active KLONOPIN 1 MG ORAL TABS 1 tab po TID CLONAZEPAM 89025431259 No Longer Active Ahmet Carbajal MD Active ABILIFY MAINTENA 400 MG IM SUSR 400mg injection every 26 days ARIPIPRAZOLE 66555914971 No Longer Active Ahmet Carbajal MD Active TRAMADOL HCL 50 MG TABS 1/2-1 tab TID PRN TRAMADOL HCL 94351841177 No Longer Active Ahmet Carbajal MD Active BACTRIM DS 800-160 MG TABS 1 twice a day SULFAMETHOXAZOLE- TRIMETHOPRIM 84731958642 No Longer Active Ahmet Carbajal MD Active PROAIR HFA 108 (90 BASE) MCG/ACT AERS 2 puffs four times a day as needed 2015 ALBUTEROL SULFATE 08149022930 Active Honey Hinton LINE UP WORKER Active MONISTAT 7 COMBO PACK WOODROW 100 & 2 MG-% (9GM) VAG KIT 1 applicatorful per vagina q pm x 7 MICONAZOLE NITRATE 79963873400 No Longer Active Ahmet Carbajal MD Active FLAGYL 500 MG TAB 1 tablet by mouth bid METRONIDAZOLE 85750630309 No Longer Active Ahmet Carbajal MD Active OXYCODONE HCL ER 10 MG ORAL T12A 1/2 tab by mouth every 4 hours prn OXYCODONE HCL 67835397506 No Longer Active Ahmet Carbajal MD Active METHYLPREDNISOLONE 4 MG ORAL TABS po daily METHYLPREDNISOLONE 90727369832 No Longer Active Ahmet Carbajal MD Active LEVOFLOXACIN 500 MG ORAL TABS po daily LEVOFLOXACIN 93218368630 No Longer Active Ahmet Carbajal MD Active VIIBRYD 10 MG ORAL TABS Take 1 tablet once a day VILAZODONE HCL 58484705332 No Longer Active Ahmet Carbajal MD Active TOPAMAX 50 MG ORAL TABS 1 tab twice daily TOPIRAMATE 33081710955 No Longer Active Ahmet Carbajal MD Active DICLOFENAC SODIUM 50 MG TBEC 1 tablet by mouth four times daily PRN Pain 2015 DICLOFENAC SODIUM 66245007148 No Longer Active Ahmet Carbajal MD Active ADZENYS XR-ODT 6.3 MG ORAL TBED 1 tab po daily for ADHD AMPHETAMINE 75190287999 No Longer Active Ahmet Carbajal MD Active CHANTIX 1 MG TABS 1 twice a day to help quit smoking VARENICLINE TARTRATE 06427018801 No Longer Active Dipika Burgos MD Active CHANTIX STARTING MONTH EARNEST 0.5 MG X 11 & 1 MG X 42 TABS take as directed 2015 VARENICLINE TARTRATE 33151377060 No Longer Active Dipika Burgos MD Active TESSALON PERLES 100 MG CAP 1 to 2 tablets by mouth 3 times daily as needed for cough BENZONATATE 13383721237 No Longer Active Luigi Martínez LINE UP WORKER Active IMITREX 50 MG ORAL TABS 0.5 po x 1 PRN Headache. May repeat dose x 1 in 2 hours if needed SUMATRIPTAN SUCCINATE 07553088039 Active TAMARA Casey Active HYDROCODONE-ACETAMINOPHEN 5-325 MG TABS 1 to 2 four times a day as needed for pain use until can be seen by specialist HYDROCODONE- ACETAMINOPHEN 75549683352 No Longer Active Vishal Hui MD Active PROAIR HFA 108 (90 BASE) MCG/ACT AERS 2 puffs four times a day as needed 2015 ALBUTEROL SULFATE 18395940394 No Longer Active Vishal Hui MD Active PREDNISONE 20 MG TABS 2 daily for 5 days then 1 daily for 5 days PREDNISONE 22131695472 No Longer Active Vishal Hui MD Active ZITHROMAX Z-EARNEST 250 MG TABS 2 today and then 1 daily for 4 days AZITHROMYCIN 82072572535 No Longer Active Vishal Hui MD Active DICLOFENAC POTASSIUM TABS Take 1 tablet twice a day (pt. is not sure of the dose.) DICLOFENAC POTASSIUM TABS 00862742796 No Longer Active Vishal Hui MD Active VERAPAMIL HCL ER 120 MG ORAL CR-TABS Take 1 tablet by mouth twice a day. VERAPAMIL HCL 75084054623 Active Vishal Hui MD Active FLAGYL 500 MG TAB 1 tablet by mouth bid METRONIDAZOLE 60113391906 No Longer Active Vishal Hui MD Active VALIUM 5 MG TAB Take 1-2 tablets daily DIAZEPAM 50307437066 No Longer Active Fabiola Johnson APRN Active METOPROLOL TARTRATE 25 MG ORAL TABS 1/2 tablet twice daily for heart rate and blood pressure METOPROLOL TARTRATE 08810685747 No Longer Active Fabiola Johnson APRN Active MIRALAX PACK 1 po qd PRN Constipation POLYETHYLENE GLYCOL 3350 04579622743 No Longer Active Ahmet Carbajal MD Active MINIPRESS 2 MG CAPS 4 cap po at night PRAZOSIN HCL 71184000884 No Longer Active Ahmet Carbajal MD Active PIROXICAM 20 MG CAPS 1 cap po qd PRN Pain PIROXICAM 17310879944 No Longer Active Ahmet Carbajal MD Active TRAMADOL HCL 50 MG TABS 1-2 po TID PRN Pain TRAMADOL HCL 12267441928 No Longer Active Ahmet Carbajal MD Active METOPROLOL TARTRATE 50 MG TAB 1 po bid METOPROLOL TARTRATE 33701016777 No Longer Active Ahmet Carbajal MD Active ABILIFY 15 MG ORAL TABS 1 tab daily ARIPIPRAZOLE 15466371862 No Longer Active Ahmet Carbajal MD Active PROZAC 20 MG ORAL CAPS 1 tab daily FLUOXETINE HCL 54595592062 No Longer Active Ahmet Carbajal MD Active AMBIEN 5 MG ORAL TABS 1 tab at bedtime ZOLPIDEM TARTRATE 87638090867 No Longer Active Ahmet Carbajal MD Active PREDNISONE 20 MG TAB 2 tabs daily for 4 days, 1 tab daily for 4 days, 1/2 tab daily for 4 days PREDNISONE 45299822957 No Longer Active Ahmet Carbajal MD Active KEFLEX 500 MG CAP 1 po TID x 10 days CEPHALEXIN 72545194476 No Longer Active Vishal Hui MD Active SAPHRIS 5 MG SUBL 1 po bid ASENAPINE MALEATE 83633481554 No Longer Active Jillina Mauricio LINE UP WORKER Active LATUDA 80 MG TABS Take one by mouth daily LURASIDONE HCL 27747990148 No Longer Active Jillina Fralebron LINE UP WORKER Active AMLODIPINE BESYLATE 5 MG TABS 1 tablet by mouth daily AMLODIPINE BESYLATE 75023835256 No Longer Active Jillina Fralebron WALTERSN Active AMITRIPTYLINE HCL 100 MG TAB one at hs AMITRIPTYLINE HCL 64701760516 No Longer Active Vishal Hui MD Active TRAZODONE HCL 100 MG TAB take 1 at bedtime TRAZODONE HCL 99320840653 No Longer Active Vishal Hui MD Active VYVANSE 40 MG CAPS 1 daily, LISDEXAMFETAMINE DIMESYLATE 43777403630 No Longer Active Vishal Hui MD Active IBUPROFEN 600 MG TAB 1 po TID PRN IBUPROFEN 25998878710 No Longer Active Vishal Hui MD Active PROZAC 20 MG CAP Take one by mouth daily FLUOXETINE HCL 06242339063 No Longer Active Vishal Hui MD Active BACTRIM DS 800-160 MG TABS 1 pill by mouth twice daily SULFAMETHOXAZOLE-TRIMETHOPRIM 78234171272 No Longer Active Sahara Rodriguez MD PhD Active DIFLUCAN 150 MG TAB 1 tablet by mouth daily FLUCONAZOLE 40658444611 No Longer Active Vishal Hui MD Active TIZANIDINE HCL 4 MG TABS 1 po q6hr PRN Muscle Spasm/Back Pain TIZANIDINE HCL 08979657990 Active TAMARA Casey Active CLINDAMYCIN HCL 150 MG CAPS 1 four times a day CLINDAMYCIN HCL 76633079133 No Longer Active Neeraj Collins MD Active KEFLEX 500 MG ORAL CAPS 1 cap QID by mouth CEPHALEXIN 72911680094 No Longer Active Neeraj Collins MD Active DIFLUCAN 150 MG TABS 1 pill every other day x 2 doses FLUCONAZOLE 45526855273 No Longer Active Sahara Rodriguez MD PhD Active MELATONIN 3 MG CAPS 2 po q hs MELATONIN 40481802441 No Longer Active Sahara Rodriguez MD PhD Active MULTIVITAMINS CAPS Take one by mouth daily MULTIPLE VITAMIN 49313399357 No Longer Active Sahara Rodriguez MD PhD Active BACTRIM DS 800-160 MG TAB 1 tab by mouth twice daily TRIMETHOPRIM-SULFAMETHOXAZOLE 75401832765 No Longer Active Sahara Rodriguez MD PhD Active [facility] PROBIOTIC ORAL CHEW 2 daily po PROBIOTIC PRODUCT 01998969352 No Longer Active Sahara Rodriguez MD PhD Active BACTRIM DS 800-160 MG TABS 1 po BID x 7 days SULFAMETHOXAZOLE-TRIMETHOPRIM 07089926043 No Longer Active Vishal Hui MD Active CHANTIX STARTING MONTH EARNEST 0.5 MG X 11 & 1 MG X 42 TABS 0.5mg daily for 3 days , then 0.5mg BID for 4 days, then 1mg BID VARENICLINE TARTRATE 95874276346 No Longer Active TAMARA Gray Active VERAPAMIL HCL CR 120 MG TAB CR 1 po bid VERAPAMIL HCL 71534016934 No Longer Active Vishal Hui MD Active METOPROLOL SUCCINATE 50 MG TB24 1 tablet by mouth daily METOPROLOL SUCCINATE 64071979925 No Longer Active Vishal Hui MD Active SAPHRIS 10 MG SUBL 1 tab po bid ASENAPINE MALEATE 97204524816 No Longer Active Vishal Hui MD Active LISINOPRIL 20 MG TABS 1 tab po qd LISINOPRIL 27353870994 No Longer Active Vishal Hui MD Active LATUDA 20 MG TABS Take one by mouth daily LURASIDONE HCL 14477970427 No Longer Active Vishal Hui MD Active TRAZODONE HCL 50 MG TABS 1/2 tab po qd prn for anxiety TRAZODONE HCL 30565740025 No Longer Active Vishal Hui MD Active OMEPRAZOLE 20 MG TBEC 1 po q a.m. 30min prior to first food intake OMEPRAZOLE 63552943800 Active TAMARA Casey Active RANITIDINE HCL 150 MG CAPS 1 twice a day RANITIDINE HCL 23059539344 Active Lynda Xiao LPN Active LINZESS 290 MCG CAPS Take one by mouth daily LINACLOTIDE 37959948276 No Longer Active Vishal Hui MD Active SAPHRIS 5 MG SUBL 1 tab po qd ASENAPINE MALEATE 51761789361 No Longer Active Vishal Hui MD Active ZALEPLON 10 MG CAPS 1 cap po every other night ZALEPLON 02554748927 No Longer Active Vishal Hui MD Active LYRICA 50 MG CAPS 1 tab po TID PREGABALIN 68731842797 No Longer Active Vishal Hui MD Active LORATADINE 10 MG TABS 1 tab po qd LORATADINE 33957930359 No Longer Active Vishal Hui MD Active VERAPAMIL HCL ER 180 MG CR-TABS 1 tab po bid VERAPAMIL HCL 21006782544 No Longer Active Vishal Hui MD Active MIRALAX POWD 1 capfull once daily POLYETHYLENE GLYCOL 3350 75309648642 No Longer Active Vishal Hui MD Active PREDNISONE 20 MG TABS 1 tab po qd PREDNISONE 51578755777 No Longer Active Renzo Thornton DO Active LEVOFLOXACIN 500 MG TABS 1 tab po qd LEVOFLOXACIN 62144160982 No Longer Active Renzo Thornton DO Active BUSPIRONE HCL 15 MG TABS 1 tab po TID BUSPIRONE HCL 03935180519 No Longer Active Renzo Thornton DO Active BENZTROPINE MESYLATE 1 MG TABS 1 tab po qd BENZTROPINE MESYLATE 89743651497 No Longer Active Renzo Thornton DO Active ATENOLOL 25 MG TABS 1 tab po qd ATENOLOL 10811421577 No Longer Active Renzo Thornton DO Active ESCITALOPRAM OXALATE 20 MG TABS 1 tab po qd ESCITALOPRAM OXALATE 55230615326 No Longer Active Renzo Thornton DO Active ADVAIR DISKUS 250-50 MCG/DOSE AEPB 1 puff BID FLUTICASONE-SALMETEROL 27077448256 No Longer Active Renzo Thornton DO Active PREDNISONE 20 MG TAB 2 tabs daily for 3 days, 1 tab daily for 3 days, 1/2 tab daily for 2 days PREDNISONE 06024830506 No Longer Active Vishal Hui MD Active CEFDINIR 300 MG CAPS by mouth twice a day CEFDINIR 74707842073 No Longer Active Vishal Hui MD Active LANSOPRAZOLE 30 MG CPDR 1 cap po qd LANSOPRAZOLE 85390836635 No Longer Active Vishal Hui MD Active BACLOFEN 20 MG TABS 1 tab po tid BACLOFEN 29233306231 No Longer Active Vishal Hui MD Active ADVAIR DISKUS 250-50 MCG/DOSE AEPB 1 puff BID ADVAIR DISKUS 250-50 MCG/DOSE AEPB FLUTICASONE-SALMETEROL Inactive ESCITALOPRAM OXALATE 20 MG TABS 1 tab po qd ESCITALOPRAM OXALATE 20 MG TABS 152263 ESCITALOPRAM OXALATE Inactive ATENOLOL 25 MG TABS 1 tab po qd ATENOLOL 25 MG TABS 841823 ATENOLOL Inactive BENZTROPINE MESYLATE 1 MG TABS 1 tab po qd BENZTROPINE MESYLATE 1 MG TABS 722489 BENZTROPINE MESYLATE Inactive BUSPIRONE HCL 15 MG TABS 1 tab po TID BUSPIRONE HCL 15 MG TABS 711385 BUSPIRONE HCL Inactive LEVOFLOXACIN 500 MG TABS 1 tab po qd LEVOFLOXACIN 500 MG TABS 939787 LEVOFLOXACIN Inactive PREDNISONE 20 MG TABS 1 tab po qd PREDNISONE 20 MG TABS 867118 PREDNISONE Inactive MIRALAX POWD 1 capfull once daily MIRALAX POWD 888635 POLYETHYLENE GLYCOL 3350 Inactive VERAPAMIL HCL ER 180 MG CR-TABS 1 tab po bid VERAPAMIL HCL ER 180 MG CR-TABS VERAPAMIL HCL Inactive LORATADINE 10 MG TABS 1 tab po qd LORATADINE 10 MG TABS 184759 LORATADINE Inactive LYRICA 50 MG CAPS 1 tab po TID LYRICA 50 MG CAPS PREGABALIN Inactive ZALEPLON 10 MG CAPS 1 cap po every other night ZALEPLON 10 MG CAPS 941119 ZALEPLON Inactive SAPHRIS 5 MG SUBL 1 tab po qd SAPHRIS 5 MG SUBL ASENAPINE MALEATE Inactive TRAZODONE HCL 50 MG TABS 1/2 tab po qd prn for anxiety TRAZODONE HCL 50 MG TABS 784410 TRAZODONE HCL Inactive LATUDA 20 MG TABS Take one by mouth daily LATUDA 20 MG TABS LURASIDONE HCL Inactive LISINOPRIL 20 MG TABS 1 tab po qd LISINOPRIL 20 MG TABS 459821 LISINOPRIL Inactive SAPHRIS 10 MG SUBL 1 [...] twice daily BACTRIM DS 800-160 MG TAB 855795 TRIMETHOPRIM-SULFAMETHOXAZOLE Inactive MULTIVITAMINS CAPS Take one by mouth daily MULTIVITAMINS CAPS MULTIPLE VITAMIN Inactive MELATONIN 3 MG CAPS 2 po q hs MELATONIN 3 MG CAPS 347417 MELATONIN Inactive KEFLEX 500 MG ORAL CAPS 1 cap QID by mouth KEFLEX 500 MG ORAL CAPS 700190 CEPHALEXIN Inactive CLINDAMYCIN HCL 150 MG CAPS 1 four times a day CLINDAMYCIN HCL 150 MG CAPS 029401 CLINDAMYCIN HCL Inactive DIFLUCAN 150 MG TAB 1 tablet by mouth daily DIFLUCAN 150 MG TAB 296921 FLUCONAZOLE Inactive PROZAC 20 MG CAP Take one by mouth daily PROZAC 20 MG CAP 415733 FLUOXETINE HCL Inactive IBUPROFEN 600 MG TAB 1 po TID PRN IBUPROFEN 600 MG TAB 673534 IBUPROFEN Inactive VYVANSE 40 MG CAPS 1 daily, VYVANSE 40 MG CAPS LISDEXAMFETAMINE DIMESYLATE Inactive TRAZODONE HCL 100 MG TAB take 1 at bedtime TRAZODONE HCL 100 MG TAB 325160 TRAZODONE HCL Inactive AMITRIPTYLINE HCL 100 MG TAB one at hs AMITRIPTYLINE HCL 100 MG TAB 655712 AMITRIPTYLINE HCL Inactive AMLODIPINE BESYLATE 5 MG TABS 1 tablet by mouth daily AMLODIPINE BESYLATE 5 MG TABS 759979 AMLODIPINE BESYLATE Inactive LATUDA 80 MG TABS Take one by mouth daily LATUDA 80 MG TABS LURASIDONE HCL Inactive SAPHRIS 5 MG SUBL 1 po bid SAPHRIS 5 MG SUBL ASENAPINE MALEATE Inactive PREDNISONE 20 MG TAB 2 tabs daily for 4 days, 1 tab daily for 4 days, 1/2 tab daily for 4 days PREDNISONE 20 MG TAB 374766 PREDNISONE Inactive AMBIEN 5 MG ORAL TABS 1 tab at bedtime AMBIEN 5 MG ORAL TABS 579451 ZOLPIDEM TARTRATE Inactive PROZAC 20 MG ORAL CAPS 1 tab daily PROZAC 20 MG ORAL CAPS 725922 FLUOXETINE HCL Inactive ABILIFY 15 MG ORAL TABS 1 tab daily ABILIFY 15 MG ORAL TABS 120195 ARIPIPRAZOLE Inactive METOPROLOL TARTRATE 50 MG TAB 1 po bid METOPROLOL TARTRATE 50 MG TAB 719317 METOPROLOL TARTRATE Inactive TRAMADOL HCL 50 MG TABS 1-2 po TID PRN Pain TRAMADOL HCL 50 MG TABS 756186 TRAMADOL HCL Inactive PIROXICAM 20 MG CAPS 1 cap po qd PRN Pain PIROXICAM 20 MG CAPS 742349 PIROXICAM Inactive MINIPRESS 2 MG CAPS 4 cap po at night MINIPRESS 2 MG CAPS 233656 PRAZOSIN HCL Inactive MIRALAX PACK 1 po qd PRN Constipation MIRALAX PACK 043022 POLYETHYLENE GLYCOL 3350 Inactive METOPROLOL TARTRATE 25 MG ORAL TABS 1/2 tablet twice daily for heart rate and blood pressure METOPROLOL TARTRATE 25 MG ORAL TABS 406512 METOPROLOL TARTRATE Inactive VALIUM 5 MG TAB Take 1-2 tablets daily VALIUM 5 MG TAB 705407 DIAZEPAM Inactive FLAGYL 500 MG TAB 1 tablet by mouth bid FLAGYL 500 MG TAB 377229 METRONIDAZOLE Inactive DICLOFENAC POTASSIUM TABS Take 1 tablet twice a day (pt. is not sure of the dose.) DICLOFENAC POTASSIUM TABS DICLOFENAC POTASSIUM TABS Inactive ZITHROMAX Z-EARNEST 250 MG TABS 2 today and then 1 daily for 4 days ZITHROMAX Z-EARNEST 250 MG TABS 3776307 AZITHROMYCIN Inactive PREDNISONE 20 MG TABS 2 daily for 5 days then 1 daily for 5 days PREDNISONE 20 MG TABS 885608 PREDNISONE Inactive PROAIR HFA 108 (90 BASE) MCG/ACT AERS 2 puffs four times a day as needed 2015 PROAIR HFA 108 (90 BASE) MCG/ACT AERS ALBUTEROL SULFATE Inactive HYDROCODONE-ACETAMINOPHEN 5-325 MG TABS 1 to 2 four times a day as needed for pain use until can be seen by specialist HYDROCODONE- ACETAMINOPHEN 5-325 MG TABS 653042 HYDROCODONE-ACETAMINOPHEN Inactive TESSALON PERLES 100 MG CAP 1 to 2 tablets by mouth 3 times daily as needed for cough TESSALON PERLES 100 MG CAP 361680 BENZONATATE Inactive CHANTIX STARTING MONTH EARNEST 0.5 [...] Pain 2015 DICLOFENAC SODIUM 50 MG TBEC 540722 DICLOFENAC SODIUM Inactive TOPAMAX 50 MG ORAL TABS 1 tab twice daily TOPAMAX 50 MG ORAL TABS 637587 TOPIRAMATE Inactive VIIBRYD 10 MG ORAL TABS Take 1 tablet once a day VIIBRYD 10 MG ORAL TABS VILAZODONE HCL Inactive LEVOFLOXACIN 500 MG ORAL TABS po daily LEVOFLOXACIN 500 MG ORAL TABS 055275 LEVOFLOXACIN Inactive METHYLPREDNISOLONE 4 MG ORAL TABS po daily METHYLPREDNISOLONE 4 MG ORAL TABS 223560 METHYLPREDNISOLONE Inactive OXYCODONE HCL ER 10 MG ORAL T12A 1/2 tab by mouth every 4 hours prn OXYCODONE HCL ER 10 MG ORAL T12A OXYCODONE HCL Inactive FLAGYL 500 MG TAB 1 tablet by mouth bid FLAGYL 500 MG TAB 290557 METRONIDAZOLE Inactive MONISTAT 7 COMBO PACK WOODROW 100 & 2 MG-% (9GM) VAG KIT 1 applicatorful per vagina q pm x 7 MONISTAT 7 COMBO PACK WOODROW 100 & 2 MG-% (9GM) VAG KIT MICONAZOLE NITRATE Inactive BACTRIM DS 800-160 MG TABS 1 twice a day BACTRIM DS 800-160 MG TABS 871895 SULFAMETHOXAZOLE-TRIMETHOPRIM Inactive TRAMADOL HCL 50 MG TABS 1/2-1 tab TID PRN TRAMADOL HCL 50 MG TABS 121700 TRAMADOL HCL Inactive ABILIFY MAINTENA 400 MG IM SUSR 400mg injection every 26 days ABILIFY MAINTENA 400 MG IM SUSR ARIPIPRAZOLE Inactive KLONOPIN 1 MG ORAL TABS 1 tab po TID KLONOPIN 1 MG ORAL TABS 011312 CLONAZEPAM Inactive ADVAIR DISKUS 250-50 MCG/DOSE INH AEPB 1 puff twice a day for asthma ADVAIR DISKUS 250-50 MCG/DOSE INH AEPB FLUTICASONE- SALMETEROL Inactive BENADRYL 25 MG CAP 4 po at bedtime for insomnia BENADRYL 25 MG CAP DIPHENHYDRAMINE HCL Inactive PREDNISONE 20 MG TABS 2 daily for 5 days then 1 daily for 5 days PREDNISONE 20 MG TABS 056715 PREDNISONE Inactive HYDROCODONE-ACETAMINOPHEN 5-325 MG ORAL TABS 1 tab two times a day HYDROCODONE-ACETAMINOPHEN 5-325 MG ORAL TABS 251054 HYDROCODONE-ACETAMINOPHEN Inactive ZITHROMAX Z-EARNEST 250 MG TABS 2 today and then 1 daily for 4 days ZITHROMAX Z-EARNEST 250 MG TABS 6644892 AZITHROMYCIN Inactive GUAIFENESIN-CODEINE 100-10 MG/5ML SYRP 5ml every 4 to 6 hours as needed for cough GUAIFENESIN-CODEINE 100-10 MG/5ML SYRP 493890 GUAIFENESIN-CODEINE Inactive HALOPERIDOL 10 MG ORAL TABS 1 tab q.d HALOPERIDOL 10 MG ORAL TABS 547688 HALOPERIDOL Inactive ASPIRIN 325 MG ORAL TABS 1 tab q.d ASPIRIN 325 MG ORAL TABS 282133 ASPIRIN Inactive FLUTICASONE PROPIONATE 50 MCG/ACT SUSP 2 sprays each nostril daily before bed. FLUTICASONE PROPIONATE 50 MCG/ACT SUSP [id number] FLUTICASONE PROPIONATE Inactive ZOFRAN 4 MG TABS 1 po q6hr PRN Nausea ZOFRAN 4 MG TABS [id number] ONDANSETRON HCL Inactive KEFLEX 500 MG CAP 1 po qid KEFLEX 500 MG CAP [id number] CEPHALEXIN Inactive ACETAMINOPHEN-CODEINE 120-12 MG/5ML SOLN 5 ml by mouth every 4-6 hours if needed for cough ACETAMINOPHEN-CODEINE 120-12 MG/5ML SOLN [id number] ACETAMINOPHEN-CODEINE Inactive PREDNISONE 20 MG TAB 1 tablet daily x 4 days PREDNISONE 20 MG TAB [id number] PREDNISONE Inactive TROPICAMIDE 0.5 % OPHTH SOLN 1 drop PRN eye spasms TROPICAMIDE 0.5 % OPHTH SOLN [id number] TROPICAMIDE Inactive LEVAQUIN 500 MG TABS 1 daily for infection LEVAQUIN 500 MG TABS 767581 LEVOFLOXACIN Inactive PREDNISONE 10 MG TABS 2 daily for 5 days then 1 daily for 5 days PREDNISONE 10 MG TABS [id number] PREDNISONE Inactive EQ NICOTINE 21 MG/24HR TRANS [...] twice a day MUPIROCIN 2 % OINT 797366 MUPIROCIN Inactive BACTRIM DS 800-160 MG TAB Take one (1) tablet by mouth twice a day for 5 days BACTRIM DS 800-160 MG TAB [id number] TRIMETHOPRIM- SULFAMETHOXAZOLE Inactive LACTULOSE 10 GM/15ML ORAL SOLN 30mL oral BID for IBS-C LACTULOSE 10 GM/15ML ORAL SOLN 155952 LACTULOSE Inactive MIRALAX ORAL POWD 17GMS DAILY IN WATER MIRALAX ORAL POWD 530463 POLYETHYLENE GLYCOL 3350 Inactive CEFDINIR 300 MG CAPS by mouth twice a day CEFDINIR 300 MG CAPS 964580 CEFDINIR Inactive PREDNISONE 20 MG TAB 2 tabs daily for 3 days, 1 tab daily for 3 days, 1/2 tab daily for 2 days PREDNISONE 20 MG TAB 725275 PREDNISONE Inactive BACTRIM DS 800-160 MG TABS 1 po BID x 7 days BACTRIM DS 800-160 MG TABS [id number] SULFAMETHOXAZOLE-TRIMETHOPRIM Inactive DIFLUCAN 150 MG TABS 1 pill every other day x 2 doses DIFLUCAN 150 MG TABS 669856 FLUCONAZOLE Inactive BACTRIM DS 800-160 MG TABS 1 pill by mouth twice daily BACTRIM DS 800-160 MG TABS [id number] SULFAMETHOXAZOLE-TRIMETHOPRIM Inactive KEFLEX 500 MG CAP 1 po TID x 10 days KEFLEX 500 MG CAP 487249 CEPHALEXIN Inactive Advance Directives Directive Description Start [...] Measured blood pressure, diastolic 99 mm[Hg] BP mncally blood pressure, systolic 153 mm[Hg] BP sys [...] % 11.0-15.0 platelet count 443 THOUSAND/UL 10*3/mm3 033-499 8220/03/01 mean platelet volume 8.2 fL 7.5-12.5 leukocyte [...] % 11.0-15.0 platelet count 349 THOUSAND/UL 10*3/mm3 345-321 4054/04/12 mean platelet volume 8.4 fL 7.5-12.5 Lab [...] 369 10^3/MM^3 10*3/mm3 142-424 Lab Report: Chlamydia/GC APTIMA/35311 - Lab chlamydia DNA probe NOT DETECTED NOT DETECTED Lab Report: Chlamydia/GC APTIMA/79342 - Microbiology Neisseria gonorrhoeae DNA probe NOT DETECTED NOT DETECTED Lab Report: Chlamydia/GC APTIMA/99039, Urinalysis, Complete, with Reflex ... - Lab chlamydia DNA probe NOT DETECTED NOT DETECTED Lab Report: Chlamydia/GC APTIMA/76669, Urinalysis, Complete, with Reflex ... - Microbiology Neisseria gonorrhoeae DNA probe NOT DETECTED NOT DETECTED Lab Report: Chlamydia/GC APTIMA/06583, Urinalysis, Complete, with Reflex ... - Urinalysis microalbumin/total urine volume 2 mg/L Units converted. See lab report for original value. microalbumin/creatinine ratio, urine 9 MCG/MG CREAT mg/L <30 Lab Report: Comp. Metabolic Panel - Chemistry sodium, serum 140 mmol/L [phone]/08/08 carbon dioxide, venous blood 33.7 mmol/L 21.0-32.0 potassium, serum 5.0 mmol/L 3.5-5.2 chloride, serum 103 mmol/L 98-107 blood glucose 80 mg/dL 65-110 urea nitrogen, blood 13 mg/dL 7-18 creatinine, serum 0.88 mg/dL 0.55-1.30 alanine aminotransferase (SGPT), serum 54 U/L 12-78 aspartate aminotransferase (SGOT), serum 29 U/L 15-37 calcium, serum 9.7 mg/dL 8.5-10.1 bilirubin, serum, total 0.30 mg/dL 0.00-1.00 sodium, serum 140 mmol/L 038-613 5097/06/28 carbon dioxide, venous blood 23.8 mmol/L 21.0-32.0 [...] 5.0-8.5 Encounters Code Encounter Date Provider Facility CPT-88469 Level 3 Est. Patient 10:53:17 CDT Suzan Boo [facility] CPT-84987 Level 3 Est. Patient 11:08:35 CDT Suzan Boo [facility] CPT-33270 Level 3 Est. Patient 15:55:20 [facility] Level 4 Est. Patient 10:49:34 CD[facility]-86375 Level 3 Est. Patient 10:00:25 CDT Suzan Boo [facility] CPT-47353 Level 3 Est. Patient 10:29:30 CDT Suzan Boo [facility] CPT-85858 Level 3 Est. Patient 11:04:38 CDT Renzo Thornton [facility] CPT-29254 Level 3 Est. Patient 11:15:58 ALL AROUND PATTERNMAKER Renzo Thornton [facility] CPT-85263 Level 3 Est. Patient 15:28:23 ALL AROUND PATTERNMAKER Suzan Boo [facility] CPT-60353 Level 4 Est. Patient 10:20:54 ALL AROUND PATTERNMAKER Suzan Boo [facility] CPT-60436 Level 3 Est. Patient 11:47:37 ALL AROUND PATTERNMAKER Ahmet Carbajal MD [facility] CPT-35145 Level 3 Est. Patient 10:40:11 ALL AROUND PATTERNMAKER Ahmet Carbajal MD [facility] CPT-54604 Level 3 Est. Patient 15:07:06 ALL AROUND PATTERNMAKER Neeraj Collins MD [facility] CPT-49296 Level 4 Est. Patient 14:45:00 ALL AROUND PATTERNMAKER Ahmet Carbajal MD [facility] CPT-53566 Level 3 Est. Patient 13:59:59 CDT Luigi Martínez [facility] CPT-15437 Level 3 Est. Patient 18:18:53 CDT Neeraj Collins MD [facility] CPT-66292 Level 3 Est. Patient 15:50:44 CDT Vishal Hui MD [facility] CPT-85773 Level 3 Est. Patient 11:36:17 CDT Ahmet Carbajal MD [facility] CPT-53091 Level 3 Est. Patient 13:29:16 CDT Vishal Hui MD [facility] CPT-72004 Level 3 Est. Patient 14:27:52 CDT Neeraj Collins MD [facility] CPT-08259 Level 3 Est. Patient 08:56:03 CDT Luigi Martínez [facility] CPT-61013 Level 4 Est. Patient 12:11:48 CDT Fabiola Johnson [facility] CPT-01830 Level 3 New Patient 16:53:37 CDT Albert Caldera MD [facility] CPT-18082 Level 3 Est. Patient 11:25:49 CDT Renzo Thornton DO [facility] CPT-02650 Level 3 Est. Patient 15:22:01 CDT Ahmet Carbajal MD [facility] CPT-36785 Level 4 Est. Patient 09:00:51 ALL AROUND PATTERNMAKER Vishal Hui MD [facility] CPT-74705 Level 3 Est. Patient 11:37:33 ALL AROUND PATTERNMAKER Vishal Hui MD [facility] CPT-78269 Level 3 Est. Patient 08:41:09 ALL AROUND PATTERNMAKER Vishal Hui MD [facility] CPT-72711 Level 4 Est. Patient 10:19:35 ALL AROUND PATTERNMAKER Vishal Hui MD [facility] CPT-68013 Level 3 Est. Patient 13:35:45 CDT Vishal Hui MD [facility] CPT-34808 Level 4 Est. Patient 10:08:37 CDT Vishal Hui MD [facility] CPT-94520 Level 3 Est. Patient 11:22:10 CDT Vishal Hui MD [facility] CPT-75454 Level 3 Est. Patient 11:03:32 CDT Sahara Rodriguez MD [facility] CPT-13521 Level 3 Est. Patient 09:41:35 CDT Vishal Hui MD [facility] CPT-85329 Level 3 Est. Patient 12:00:41 CDT Neeraj Collins MD [facility] CPT-80542 Level 3 Est. Patient 09:16:24 CDT Vishal Hui MD [facility] CPT-59881 Level 4 Est. Patient 13:59:09 CDT Neeraj Collins MD [facility] CPT-93306 Level 3 Est. Patient 15:19:43 CDT Renzo Thornton DO [facility] CPT-77170 Level 3 Est. Patient 18:10:26 CDT Sahara Rodriguez MD PhD [facility]-62115 Level 3 Est. Patient 14:49:50 CDT Vishal Hui MD [facility] CPT-23855 Level 4 Est. Patient 18:41:46 CDT Neeraj Collins MD [facility] CPT-60784 Level 4 Est. Patient 09:18:38 ALL AROUND PATTERNMAKER Vishal Hui MD [facility] CPT-60551 Level 3 Est. Patient 14:43:55 ALL AROUND PATTERNMAKER Vishal Hui MD [facility] CPT-87191 Level 3 Est. Patient 15:26:33 ALL AROUND PATTERNMAKER Sahara Rodriguez MD PhD [facility] CPT-98664 Level 3 Est. Patient 10:32:14 ALL AROUND PATTERNMAKER Vishal Hui MD [facility] CPT-52976 Level 3 Est. Patient 15:12:52 ALL AROUND PATTERNMAKER Vishal Hui MD [facility] CPT-99239 Level 4 Est. Patient 09:19:27 CDT Vishal Hui MD [facility] CPT-00380 Level 3 Est. Patient 15:53:00 CDT Renzo Braajas [facility] CPT-36487 Level 3 Est. Patient 15:50:30 CDT Renzo Barajas [facility] CPT-01362 Level 3 Est. Patient 16:55:24 CDT Vishal Hui MD [facility] Procedures Code Procedure Name Date Entry Date Standard Description CPT-54006 Venipuncture Draw Fee 10:53:17 CDT CPT-51780 EKG Trac and Interp - XRAY USE ONLY 15:59:30 CDT 09/13 CPT-53811 Chest 1V Frontal - XRAY USE ONLY 15:59:30 CDT CPT-01270 Venipuncture Draw Fee 15:44:02 CDT CPT-57128 Venipuncture Draw Fee 08:41:12 CDT CPT-63625 Abd compl w upright - XRAY USE ONLY 10:27:59 CDT 06/28 CPT-35073 Smoking Cessation counseling 11:15:58 ALL AROUND PATTERNMAKER CPT-G0439 [facility] Annual Wellness Exam 09:30:58 ALL AROUND PATTERNMAKER CPT-40190 TSH - LAB USE ONLY 08:50:26 ALL AROUND PATTERNMAKER CPT-85492 CBC - LAB USE ONLY 08:50:26 ALL AROUND PATTERNMAKER CPT-74466 Venipuncture Draw Fee 08:50:26 ALL AROUND PATTERNMAKER CPT-27802 Abx/Therapy Injection 17:34:30 ALL AROUND PATTERNMAKER CPT-12837 Nexplanon Removal with Reinsertion 14:09:32 CDT CPT-J7307 Nexplanon (Implant) 14:09:32 CDT CPT-OV Office Visit 14:09:32 CDT CPT-61867 UA w micro - LAB USE ONLY 16:21:13 CDT CPT-89305 Wet Mount - LAB USE ONLY 16:21:13 CDT CPT-76568 First Vx - Ix admin for Medicare patients 14:37:47 CDT CPT-54267 Fluzone Preservative Free Intramuscular Suspension 14:37 :47 CDT CPT-31412 Abx/Therapy Injection 13:54:22 CDT CPT-69961 Abx/Therapy Injection 08:47:09 CDT CPT-36475 Abx/Therapy Injection 13:29:56 CDT CPT-24551 Abx/Therapy Injection 08:36:16 CDT CPT-39062 Wet Mount - LAB USE ONLY 17:44:58 CDT CPT-59063 UA w micro - LAB USE ONLY 17:44:58 CDT CPT-83844 CMP - LAB USE ONLY 17:44:58 CDT CPT-34894 Venipuncture Draw Fee 17:44:58 CDT CPT-34960 Cervical Min 4V - XRAY USE ONLY 09:01:40 CDT CPT-38668 Chest 2V Frontal and Lat - XRAY USE ONLY 11:06:31 CDT CPT-93323 EKG Trac and Interp - XRAY USE ONLY 11:31:43 CDT 08/26 CPT-J3420 Vitamin B12 1000mcg (Cyanocobalamin) 08:10:26 ALL AROUND PATTERNMAKER 04/12 CPT-02569 Abx/Therapy Injection 08:10:26 ALL AROUND PATTERNMAKER CPT-G0438 Initial Annual Wellness Exam 19:01:01 ALL AROUND PATTERNMAKER CPT-J3420 Vitamin B12 1000mcg (Cyanocobalamin) 16:57:46 CDT 08/14 CPT-33377 Recombivax HB Injection Suspension 5 MCG/0.5ML 08:37:50 ALL AROUND PATTERNMAKER CPT-05087 Immunization Single Admin 08:37:50 ALL AROUND PATTERNMAKER CPT-J3420 Vitamin B12 1000mcg (Cyanocobalamin) 08:32:16 ALL AROUND PATTERNMAKER 03/11 CPT-87508 Abx/Therapy Injection 08:32:16 ALL AROUND PATTERNMAKER CPT-90694 Chest 2V Frontal and Lat 11:46:38 ALL AROUND PATTERNMAKER CPT-02780 Venipuncture Draw Fee 09:12:45 ALL AROUND PATTERNMAKER CPT-J3420 Vitamin B12 1000mcg (Cyanocobalamin) 08:50:15 ALL AROUND PATTERNMAKER 02/08 CPT-94710 Abx/Therapy Injection 08:50:15 ALL AROUND PATTERNMAKER CPT-Cryo Cryotherapy 10:19:35 ALL AROUND PATTERNMAKER CPT-000 Give Appropriate Flu Vaccine 09:22:16 CDT CPT-J3420 Vitamin B12 1000mcg (Cyanocobalamin) 19:08:57 CDT 01/11 CPT-74933 Abx/Therapy Injection 19:08:57 CDT CPT-J3420 Vitamin B12 1000mcg (Cyanocobalamin) 08:19:08 CDT 12/11 CPT-59276 Abx/Therapy Injection 08:19:08 CDT CPT-J3420 Vitamin B12 1000mcg (Cyanocobalamin) 14:48:00 CDT 11/09 CPT-09465 Abx/Therapy Injection 14:47:59 CDT CPT-J3420 Vitamin B12 1000mcg (Cyanocobalamin) 08:34:04 CDT 10/09 CPT-56228 Abx/Therapy Injection 08:34:04 CDT CPT-J3420 Vitamin B12 1000mcg (Cyanocobalamin) 09:18:52 CDT 09/11 CPT-57374 Abx/Therapy Injection 09:18:52 CDT CPT-J3420 Vitamin B12 1000mcg (Cyanocobalamin) 08:35:44 CDT 09/04 CPT-25251 Abx/Therapy Injection 08:35:44 CDT CPT-38620 Immunization Single Admin 11:07:16 CDT CPT-01944 Hepatitis B adult IM 11:07:16 CDT CPT-J3420 Vitamin B12 1000mcg (Cyanocobalamin) 11:00:49 CDT 08/28 CPT-J1040 Depo Medrol 80 mg (Methyl Prednisolone Acetate) 11:00: 49 CDT CPT-44171 Abx/Therapy Injection 11:00:49 CDT CPT-J1040 Depo Medrol 80 mg (Methyl Prednisolone Acetate) 09:16: 23 CDT CPT-J3420 Vitamin B12 1000mcg (Cyanocobalamin) 08:27:05 CDT 08/20 CPT-54249 Abx/Therapy Injection 08:27:05 CDT CPT-52887 Recombivax HB Injection Suspension 5 MCG/0.5ML 10:00:41 CDT CPT-28316 Administration single or combination vaccine inc oral 10 :00:41 CDT CPT-02371 Sono transvag pelvis non OB uterus ovaries cervix 16:36: 57 CDT CPT-03700 LS spine comp w obliq 09:50:55 ALL AROUND PATTERNMAKER CPT-04349 Abd compl w upright 09:50:55 ALL AROUND PATTERNMAKER CPT-J1100 Decadron 4mg (Dexamethasone) 15:51:24 ALL AROUND PATTERNMAKER CPT-J1030 Depo Medrol 40 mg (Methyl Prednisolone Acetate) 15:51: 24 ALL AROUND PATTERNMAKER CPT-82691 Abx/Therapy Injection 15:51:24 ALL AROUND PATTERNMAKER CPT-J1100 Decadron 4mg (Dexamethasone) 15:26:33 ALL AROUND PATTERNMAKER CPT-J1030 Depo Medrol 40 mg (Methyl Prednisolone Acetate) 15:26: 33 ALL AROUND PATTERNMAKER CPT-52640 Sono retroperitoneal complete kidneys and bladder 17:15: 30 CDT CPT-50072 Abd compl w upright 16:09:25 CDT CPT-J1100 Decadron 8mg (Dexamethasone) 17:07:57 CDT CPT-02339 Abx/Therapy Injection 17:07:57 CDT CPT-J1100 Decadron 8mg (Dexamethasone) 16:55:24 CDT CPT-07628 Chest 2V Frontal and Lat 16:32:44 CDT
--- OUTSIDE RECORDS SUMMARY | 2016-11-04 14:47 | XMS REPORT | Clinical Summary ---
Author Author Admin, [employer] Organization [facility] Address Unknown Phone Unavailable Allergies, Adverse Reactions, Alerts Allergy Name Reaction Description Start Date Severity Status Provider REQUIP Unsure of reaction, states that she was in severe pain Critical Active Ahmet Carbajal MD AMITRIPTYLINE HCL Mood changes. LDA MA Critical Active Vishal Hui MD FANAPT heart palpitations Critical Active Vishal Hui MD SEROQUEL Critical Active Vsihal Hui MD AUGMENTIN Critical Active Vishal Hui [...] Shortness of breath 786.05 Active Fabiola Johnson ACADEMIC SERVICES COORDINATOR Shortness of breath Nocturnal hypoxia 799.02 Active Fabiola Johnson ACADEMIC SERVICES COORDINATOR Hypoxemia Neck pain 723.1 Active Luigi Martínez ACADEMIC SERVICES COORDINATOR Cervicalgia Vaginal discharge 623.5 Active Neeraj [...] TABS take as directed 2015 VARENICLINE TARTRATE 70102336569 Active Ahmet Carbajal MD Active CHANTIX 1 MG TABS 1 twice a day to help quit smoking VARENICLINE TARTRATE 52825291236 Active Ahmet Carbajal MD Active HYDROCODONE-ACETAMINOPHEN 5-325 MG TABS 1 to 2 four times a day as needed for pain use until can be seen by specialist HYDROCODONE- ACETAMINOPHEN 84333961644 No Longer Active Vishal Hui MD Active PROAIR HFA 108 (90 BASE) MCG/ACT AERS 2 puffs four times a day as needed 2015 ALBUTEROL SULFATE 19595915503 No Longer Active Vishal Hui MD Active PREDNISONE 20 MG TABS 2 daily for 5 days then 1 daily for 5 days PREDNISONE 29050954352 No Longer Active Vishal Hui MD Active ZITHROMAX Z-EARNEST 250 MG TABS 2 today and then 1 daily for 4 days AZITHROMYCIN 72383733988 No Longer Active Vishal Hui MD Active DICLOFENAC SODIUM 50 MG TBEC 1 tablet by mouth four times daily PRN Pain 2015 DICLOFENAC SODIUM 70217835197 Active Vishal Hui MD Active DICLOFENAC POTASSIUM TABS Take 1 tablet twice a day (pt. is not sure of the dose.) DICLOFENAC POTASSIUM TABS 34788974405 No Longer Active Vishal Hui MD Active VERAPAMIL HCL ER 120 MG ORAL CR-TABS Take 1 tablet by mouth twice a day. VERAPAMIL HCL 50428106112 Active Vishal Hui MD Active FLAGYL 500 MG TAB 1 tablet by mouth bid METRONIDAZOLE 91283368929 No Longer Active Vishal Hui MD Active ABILIFY MAINTENA 400 MG IM SUSR 400mg injection every 28 days ARIPIPRAZOLE 01788540678 Active Silvia Ervinum HEAD LOADER Active FLUTICASONE PROPIONATE 50 MCG/ACT SUSP 2 sprays each nostril daily before bed. FLUTICASONE PROPIONATE 10579053578 Active Fabiola Johnson APRN Active ADZENYS XR-ODT 6.3 MG ORAL TBED 1 tab po daily for ADHD AMPHETAMINE 43063822002 Active Fabiola Johnson APRN Active BENADRYL 25 MG CAP 4 po at bedtime for insomnia DIPHENHYDRAMINE HCL 61910105000 Active Fabiola Johnson APRN Active KLONOPIN 1 MG ORAL TABS 1 tab po TID CLONAZEPAM 75686001504 Active Fabiola Johnson APRN Active VALIUM 5 MG TAB Take 1-2 tablets daily DIAZEPAM 09208737369 No Longer Active Fabiola Johnson APRN Active METOPROLOL TARTRATE 25 MG ORAL TABS 1/2 tablet twice daily for heart rate and blood pressure METOPROLOL TARTRATE 05249392742 No Longer Active Fabiola Johnson APRN Active MIRALAX ORAL POWD 17GMS DAILY IN WATER POLYETHYLENE GLYCOL 3350 96352240673 Active Vishal Hui MD Active VIIBRYD 10 MG ORAL TABS Take 1 tablet once a day VILAZODONE HCL 03646342587 Active Ahmet Carbajal MD Active MIRALAX PACK 1 po qd PRN Constipation POLYETHYLENE GLYCOL 3350 66024499466 No Longer Active Ahmet Carbajal MD Active MINIPRESS 2 MG CAPS 4 cap po at night PRAZOSIN HCL 60853549042 No Longer Active Ahmet Carbajal MD Active PIROXICAM 20 MG CAPS 1 cap po qd PRN Pain PIROXICAM 36758590756 No Longer Active Ahmet Carbajal MD Active TRAMADOL HCL 50 MG TABS 1-2 po TID PRN Pain TRAMADOL HCL 77975564090 No Longer Active Ahmet Carbajal MD Active METOPROLOL TARTRATE 50 MG TAB 1 po bid METOPROLOL TARTRATE 17274603298 No Longer Active Ahmet Carbajal MD Active ABILIFY 15 MG ORAL TABS 1 tab daily ARIPIPRAZOLE 19406070084 No Longer Active Ahmet Carbajal MD Active PROZAC 20 MG ORAL CAPS 1 tab daily FLUOXETINE HCL 10198646434 No Longer Active Ahmet Carbaajl MD Active AMBIEN 5 MG ORAL TABS 1 tab at bedtime ZOLPIDEM TARTRATE 54456705638 No Longer Active Ahmet Carbajal MD Active PREDNISONE 20 MG TAB 2 tabs daily for 4 days, 1 tab daily for 4 days, 1/2 tab daily for 4 days PREDNISONE 29915245104 No Longer Active Ahmet Carbajal MD Active KEFLEX 500 MG CAP 1 po TID x 10 days CEPHALEXIN 03246124346 No Longer Active Vishal Hui MD Active IMITREX 50 MG ORAL TABS 1/2 tab every 6 hours prn SUMATRIPTAN SUCCINATE 22806264815 Active Jioral Martínez APRN Active TOPAMAX 50 MG ORAL TABS 1 tab twice daily TOPIRAMATE 96445546547 Active Vishal Hui MD Active SAPHRIS 5 MG SUBL 1 po bid ASENAPINE MALEATE 66845210906 No Longer Active Luigi Martínez APRN Active LATUDA 80 MG TABS Take one by mouth daily LURASIDONE HCL 24262963377 No Longer Active Luigi Martínez APRN Active AMLODIPINE BESYLATE 5 MG TABS 1 tablet by mouth daily AMLODIPINE BESYLATE 95200417595 No Longer Active Luigi Martínez APRN Active AMITRIPTYLINE HCL 100 MG TAB one at hs AMITRIPTYLINE HCL 29085335187 No Longer Active Vishal Hui MD Active TRAZODONE HCL 100 MG TAB take 1 at bedtime TRAZODONE HCL 15422580972 No Longer Active Vishal Hui MD Active VYVANSE 40 MG CAPS 1 daily, LISDEXAMFETAMINE DIMESYLATE 92151949005 No Longer Active Vishal Hui MD Active IBUPROFEN 600 MG TAB 1 po TID PRN IBUPROFEN 46548929670 No Longer Active Vishal Hui MD Active PROZAC 20 MG CAP Take one by mouth daily FLUOXETINE HCL 04428561611 No Longer Active Vishal Hui MD Active ZOFRAN 4 MG TABS 1 po q6hr PRN Nausea ONDANSETRON HCL Active Vishal Hui MD Active BACTRIM DS 800-160 MG TABS 1 pill by mouth twice daily SULFAMETHOXAZOLE-TRIMETHOPRIM 64882786302 No Longer Active Sahara Rodriguez MD PhD Active DIFLUCAN 150 MG TAB 1 tablet by mouth daily FLUCONAZOLE 38392014173 No Longer Active Vishal Hui MD Active TIZANIDINE HCL 4 MG TABS 1 po q6hr PRN Muscle Spasm/Back Pain TIZANIDINE HCL 17814684963 Active Vishal Hui MD Active CLINDAMYCIN HCL 150 MG CAPS 1 four times a day CLINDAMYCIN HCL 50600419020 No Longer Active Neeraj Collins MD Active KEFLEX 500 MG ORAL CAPS 1 cap QID by mouth CEPHALEXIN 03072429059 No Longer Active Neeraj Collins MD Active DIFLUCAN 150 MG TABS 1 pill every other day x 2 doses FLUCONAZOLE 44625112536 No Longer Active Sahara Rodriguez MD PhD Active MELATONIN 3 MG CAPS 2 po q hs MELATONIN 00552397837 No Longer Active Sahara Rodriguez MD PhD Active MULTIVITAMINS CAPS Take one by mouth daily MULTIPLE VITAMIN 95793692603 No Longer Active Sahara Rodriguez MD PhD Active BACTRIM DS 800-160 MG TAB 1 tab by mouth twice daily TRIMETHOPRIM-SULFAMETHOXAZOLE 58731773679 No Longer Active Sahara Rodriguez MD PhD Active [facility] PROBIOTIC ORAL CHEW 2 daily po PROBIOTIC PRODUCT 43959872369 No Longer Active Sahara Rodriguez MD PhD Active BACTRIM DS 800-160 MG TABS 1 po BID x 7 days SULFAMETHOXAZOLE-TRIMETHOPRIM 57501772470 No Longer Active Vishal Hui MD Active CHANTIX STARTING MONTH EARNEST 0.5 MG X 11 & 1 MG X 42 TABS 0.5mg daily for 3 days , then 0.5mg BID for 4 days, then 1mg BID VARENICLINE TARTRATE 65660898653 No Longer Active TAMARA Gray Active VERAPAMIL HCL CR 120 MG TAB CR 1 po bid VERAPAMIL HCL 18318227156 No Longer Active Vishal Hui MD Active METOPROLOL SUCCINATE 50 MG TB24 1 tablet by mouth daily METOPROLOL SUCCINATE 63891937012 No Longer Active Vishal Hui MD Active SAPHRIS 10 MG SUBL 1 tab po bid ASENAPINE MALEATE 59733021928 No Longer Active Vishal Hui MD Active LISINOPRIL 20 MG TABS 1 tab po qd LISINOPRIL 29625188343 No Longer Active Vishal Hui MD Active LATUDA 20 MG TABS Take one by mouth daily LURASIDONE HCL 29787686008 No Longer Active Vishal Hui MD Active TRAZODONE HCL 50 MG TABS 1/2 tab po qd prn for anxiety TRAZODONE HCL 73008968163 No Longer Active Vishal Hui MD Active OMEPRAZOLE 20 MG TBEC 1 po q a.m. 30min prior to first food intake OMEPRAZOLE 67560207137 Active Vishal Hui MD Active RANITIDINE HCL 150 MG CAPS 1 twice a day RANITIDINE HCL 42881958037 Active Luigi Martínez APRN Active LINZESS 290 MCG CAPS Take one by mouth daily LINACLOTIDE 87898583167 No Longer Active Vishal Hui MD Active SAPHRIS 5 MG SUBL 1 tab po qd ASENAPINE MALEATE 18346728486 No Longer Active Vishal Hui MD Active ZALEPLON 10 MG CAPS 1 cap po every other night ZALEPLON 08701369480 No Longer Active Vishal Hui MD Active LYRICA 50 MG CAPS 1 tab po TID PREGABALIN 93212074765 No Longer Active Vishal Hui MD Active LORATADINE 10 MG TABS 1 tab po qd LORATADINE 23923991843 No Longer Active Vishal Hui MD Active VERAPAMIL HCL ER 180 MG CR-TABS 1 tab po bid VERAPAMIL HCL 75838082897 No Longer Active Vishal Hui MD Active MIRALAX POWD 1 capfull once daily POLYETHYLENE GLYCOL 3350 86804921806 No Longer Active Vishal Hui MD Active PREDNISONE 20 MG TABS 1 tab po qd PREDNISONE 32196484116 No Longer Active Renzo Thornton DO Active LEVOFLOXACIN 500 MG TABS 1 tab po qd LEVOFLOXACIN 04430903732 No Longer Active Renzo Thornton DO Active BUSPIRONE HCL 15 MG TABS 1 tab po TID BUSPIRONE HCL 72032956362 No Longer Active Renzo Thornton DO Active BENZTROPINE MESYLATE 1 MG TABS 1 tab po qd BENZTROPINE MESYLATE 28244735281 No Longer Active Renzo Thornton DO Active ATENOLOL 25 MG TABS 1 tab po qd ATENOLOL 83516420308 No Longer Active Renzo Thornton DO Active ESCITALOPRAM OXALATE 20 MG TABS 1 tab po qd ESCITALOPRAM OXALATE 21550132006 No Longer Active Renzo Thornton DO Active ADVAIR DISKUS 250-50 MCG/DOSE AEPB 1 puff BID FLUTICASONE-SALMETEROL 17341659774 No Longer Active Renzo Thornton DO Active PREDNISONE 20 MG TAB 2 tabs daily for 3 days, 1 tab daily for 3 days, 1/2 tab daily for 2 days PREDNISONE 28181326527 No Longer Active Vishal Hui MD Active CEFDINIR 300 MG CAPS by mouth twice a day CEFDINIR 73798148504 No Longer Active Vishal Hui MD Active LANSOPRAZOLE 30 MG CPDR 1 cap po qd LANSOPRAZOLE 02040442440 No Longer Active Vishal Hui MD Active BACLOFEN 20 MG TABS 1 tab po tid BACLOFEN 90704965498 No Longer Active Vishal Hui MD Active ADVAIR DISKUS 250-50 MCG/DOSE AEPB 1 puff BID ADVAIR DISKUS 250-50 MCG/DOSE AEPB FLUTICASONE-SALMETEROL Inactive ESCITALOPRAM OXALATE 20 MG TABS 1 tab po qd ESCITALOPRAM OXALATE 20 MG TABS 545472 ESCITALOPRAM OXALATE Inactive ATENOLOL 25 MG TABS 1 tab po qd ATENOLOL 25 MG TABS 256021 ATENOLOL Inactive BENZTROPINE MESYLATE 1 MG TABS 1 tab po qd BENZTROPINE MESYLATE 1 MG TABS 771468 BENZTROPINE MESYLATE Inactive BUSPIRONE HCL 15 MG TABS 1 tab po TID BUSPIRONE HCL 15 MG TABS 821933 BUSPIRONE HCL Inactive LEVOFLOXACIN 500 MG TABS 1 tab po qd LEVOFLOXACIN 500 MG TABS 091153 LEVOFLOXACIN Inactive PREDNISONE 20 MG TABS 1 tab po qd PREDNISONE 20 MG TABS 346254 PREDNISONE Inactive MIRALAX POWD 1 capfull once daily MIRALAX POWD 762182 POLYETHYLENE GLYCOL 3350 Inactive VERAPAMIL HCL ER 180 MG CR-TABS 1 tab po bid VERAPAMIL HCL ER 180 MG CR-TABS VERAPAMIL HCL Inactive LORATADINE 10 MG TABS 1 tab po qd LORATADINE 10 MG TABS 311688 LORATADINE Inactive LYRICA 50 MG CAPS 1 tab po TID LYRICA 50 MG CAPS PREGABALIN Inactive ZALEPLON 10 MG CAPS 1 cap po every other night ZALEPLON 10 MG CAPS 919044 ZALEPLON Inactive SAPHRIS 5 MG SUBL 1 tab po qd SAPHRIS 5 MG SUBL ASENAPINE MALEATE Inactive TRAZODONE HCL 50 MG TABS 1/2 tab po qd prn for anxiety TRAZODONE HCL 50 MG TABS 086037 TRAZODONE HCL Inactive LATUDA 20 MG TABS Take one by mouth daily LATUDA 20 MG TABS LURASIDONE HCL Inactive LISINOPRIL 20 MG TABS 1 tab po qd LISINOPRIL 20 MG TABS 642114 LISINOPRIL Inactive SAPHRIS 10 MG SUBL 1 [...] twice daily BACTRIM DS 800-160 MG TAB 111496 TRIMETHOPRIM-SULFAMETHOXAZOLE Inactive MULTIVITAMINS CAPS Take one by mouth daily MULTIVITAMINS CAPS MULTIPLE VITAMIN Inactive MELATONIN 3 MG CAPS 2 po q hs MELATONIN 3 MG CAPS 314943 MELATONIN Inactive KEFLEX 500 MG ORAL CAPS 1 cap QID by mouth KEFLEX 500 MG ORAL CAPS 318840 CEPHALEXIN Inactive CLINDAMYCIN HCL 150 MG CAPS 1 four times a day CLINDAMYCIN HCL 150 MG CAPS 198007 CLINDAMYCIN HCL Inactive DIFLUCAN 150 MG TAB 1 tablet by mouth daily DIFLUCAN 150 MG TAB 494931 FLUCONAZOLE Inactive PROZAC 20 MG CAP Take one by mouth daily PROZAC 20 MG CAP 917568 FLUOXETINE HCL Inactive IBUPROFEN 600 MG TAB 1 po TID PRN IBUPROFEN 600 MG TAB 973187 IBUPROFEN Inactive VYVANSE 40 MG CAPS 1 daily, VYVANSE 40 MG CAPS LISDEXAMFETAMINE DIMESYLATE Inactive TRAZODONE HCL 100 MG TAB take 1 at bedtime TRAZODONE HCL 100 MG TAB 905427 TRAZODONE HCL Inactive AMITRIPTYLINE HCL 100 MG TAB one at hs AMITRIPTYLINE HCL 100 MG TAB 174527 AMITRIPTYLINE HCL Inactive AMLODIPINE BESYLATE 5 MG TABS 1 tablet by mouth daily AMLODIPINE BESYLATE 5 MG TABS 617496 AMLODIPINE BESYLATE Inactive LATUDA 80 MG TABS Take one by mouth daily LATUDA 80 MG TABS LURASIDONE HCL Inactive SAPHRIS 5 MG SUBL 1 po bid SAPHRIS 5 MG SUBL ASENAPINE MALEATE Inactive PREDNISONE 20 MG TAB 2 tabs daily for 4 days, 1 tab daily for 4 days, 1/2 tab daily for 4 days PREDNISONE 20 MG TAB 673018 PREDNISONE Inactive AMBIEN 5 MG ORAL TABS 1 tab at bedtime AMBIEN 5 MG ORAL TABS 487356 ZOLPIDEM TARTRATE Inactive PROZAC 20 MG ORAL CAPS 1 tab daily PROZAC 20 MG ORAL CAPS 777057 FLUOXETINE HCL Inactive ABILIFY 15 MG ORAL TABS 1 tab daily ABILIFY 15 MG ORAL TABS 968280 ARIPIPRAZOLE Inactive METOPROLOL TARTRATE 50 MG TAB 1 po bid METOPROLOL TARTRATE 50 MG TAB 052583 METOPROLOL TARTRATE Inactive TRAMADOL HCL 50 MG TABS 1-2 po TID PRN Pain TRAMADOL HCL 50 MG TABS 522112 TRAMADOL HCL Inactive PIROXICAM 20 MG CAPS 1 cap po qd PRN Pain PIROXICAM 20 MG CAPS 809711 PIROXICAM Inactive MINIPRESS 2 MG CAPS 4 cap po at night MINIPRESS 2 MG CAPS 093375 PRAZOSIN HCL Inactive MIRALAX PACK 1 po qd PRN Constipation MIRALAX PACK 022611 POLYETHYLENE GLYCOL 3350 Inactive METOPROLOL TARTRATE 25 MG ORAL TABS 1/2 tablet twice daily for heart rate and blood pressure METOPROLOL TARTRATE 25 MG ORAL TABS 351947 METOPROLOL TARTRATE Inactive VALIUM 5 MG TAB Take 1-2 tablets daily VALIUM 5 MG TAB 692158 DIAZEPAM Inactive FLAGYL 500 MG TAB 1 tablet by mouth bid FLAGYL 500 MG TAB 441868 METRONIDAZOLE Inactive DICLOFENAC POTASSIUM TABS Take 1 tablet twice a day (pt. is not sure of the dose.) DICLOFENAC POTASSIUM TABS DICLOFENAC POTASSIUM TABS Inactive ZITHROMAX Z-EARNEST 250 MG TABS 2 today and then 1 daily for 4 days ZITHROMAX Z-EARNEST 250 MG TABS 4116390 AZITHROMYCIN Inactive PREDNISONE 20 MG TABS 2 daily for 5 days then 1 daily for 5 days PREDNISONE 20 MG TABS 865006 PREDNISONE Inactive PROAIR HFA 108 (90 BASE) MCG/ACT AERS 2 puffs four times a day as needed 2015 PROAIR HFA 108 (90 BASE) MCG/ACT AERS ALBUTEROL SULFATE Inactive HYDROCODONE-ACETAMINOPHEN 5-325 MG TABS 1 to 2 four times a day as needed for pain use until can be seen by specialist HYDROCODONE- ACETAMINOPHEN 5-325 MG TABS 607435 HYDROCODONE-ACETAMINOPHEN Inactive CEFDINIR 300 MG CAPS by mouth twice a day CEFDINIR 300 MG CAPS 273379 CEFDINIR Inactive PREDNISONE 20 MG TAB 2 tabs daily for 3 days, 1 tab daily for 3 days, 1/2 tab daily for 2 days PREDNISONE 20 MG TAB 287533 PREDNISONE Inactive BACTRIM DS 800-160 MG TABS 1 po BID x 7 days BACTRIM DS 800-160 MG TABS 838864 SULFAMETHOXAZOLE-TRIMETHOPRIM Inactive DIFLUCAN 150 MG TABS 1 pill every other day x 2 doses DIFLUCAN 150 MG TABS 052624 FLUCONAZOLE Inactive BACTRIM DS 800-160 MG TABS 1 pill by mouth twice daily BACTRIM DS 800-160 MG TABS 352248 SULFAMETHOXAZOLE-TRIMETHOPRIM Inactive KEFLEX 500 MG CAP 1 po TID x 10 days KEFLEX 500 MG CAP 222180 CEPHALEXIN Inactive Advance Directives Directive Description Start [...] % 11.6-14.8 platelet count 394 10^3/MM^3 10*3/mm3 055-192 7066/01/11 leukocyte count, blood 13.8 10^3/MM^3 10*3/mm3 4.6-10.2 [...] Panel - Chemistry sodium, serum 139 mmol/L 715-051 0618/12/03 carbon dioxide, venous blood 28.5 mmol/L 21.0-32.0 [...] 5.5 % 4.3-6.0 cholesterol, serum 159 mg/dL 055-321 0746/12/03 triglyceride, serum, fasting 118 mg/dL 30-200 HDL [...] Panel - Chemistry sodium, serum 139 mmol/L 401-728 9852/12/22 carbon dioxide, venous blood 26.8 mmol/L 21.0-32.0 potassium, serum 4.2 mmol/L 3.5-5.2 chloride, serum 103 mmol/L 98-107 blood glucose 115 mg/dL 65-110 urea nitrogen, blood 20 mg/dL 7-18 creatinine, serum 0.90 mg/dL 0.55-1.30 alanine aminotransferase (SGPT), serum 38 U/L -78 aspartate aminotransferase (SGOT), serum 19 U/L 15-37 calcium, serum 8.6 mg/dL 8.5-10.1 bilirubin, serum, total 0.30 mg/dL 0.00-1.00 sodium, serum 139 mmol/L 399-712 7305/01/11 carbon dioxide, venous blood 26.6 mmol/L 21.0-32.0 potassium, serum 4.1 mmol/L 3.5-5.2 chloride, serum 100 mmol/L 98-107 blood glucose 86 mg/dL 65-110 urea nitrogen, blood 16 mg/dL 7-18 creatinine, serum 1.00 mg/dL 0.55-1.30 alanine aminotransferase (SGPT), serum 48 U/L 78 aspartate aminotransferase (SGOT), serum 17 U/L 15-37 calcium, serum 9.1 mg/dL 8.5-10.1 bilirubin, serum, total 0.40 mg/dL 0.00-1.00 sodium, serum 142 mmol/L 083-718 4712/06/08 carbon dioxide, venous blood 27.6 mmol/L 21.0-32.0 potassium, serum 4.0 mmol/L 3.5-5.2 chloride, serum 105 mmol/L 98-107 blood glucose 95 mg/dL 65-110 urea nitrogen, blood 8 mg/dL 7-18 creatinine, serum 0.75 mg/dL 0.55-1.30 alanine aminotransferase (SGPT), serum 49 U/L - aspartate aminotransferase (SGOT), serum 28 U/L 15-37 calcium, serum 9.4 mg/dL 8.5-10.1 bilirubin, serum, total 0.30 mg/dL 0.00-1.00 sodium, serum 140 mmol/L 448-510 4364/08/08 carbon dioxide, venous blood 33.7 mmol/L 21.0-32.0 [...] Rate - Chemistry sodium, serum 139 mmol/L 392-148 4452/12/11 carbon dioxide, venous blood 25.4 mmol/L 21.0-32.0 [...] mg/dL Encounters Code Encounter Date Provider Facility CPT-57100 Level 3 Est. Patient 11:36:17 CDT Ahmet Carbajal MD [facility] CPT-29676 Level 3 Est. Patient 13:29:16 CDT Vishal Hui MD [facility] CPT-77371 Level 3 Est. Patient 14:27:52 CDT Neeraj Collins MD [facility] CPT-94540 Level 3 Est. Patient 08:56:03 CDT Jillina Frazell [facility] CPT-71059 Level 4 Est. Patient 12:11:48 CDT Fabiola Johnson [facility] CPT-59687 Level 3 New Patient 16:53:37 CDT Albert Caldera MD [facility] CPT-94522 Level 3 Est. Patient 11:25:49 CDT Renzo Thornton DO [facility] CPT-86913 Level 3 Est. Patient 15:22:01 CDT Ahmet Carbajal MD [facility] CPT-07707 Level 4 Est. Patient 09:00:51 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 Vishal Hui MD [facility] CPT-93532 Level 3 Est. Patient 11:37:33 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 Vishal Hui MD [facility] CPT-08971 Level 3 Est. Patient 08:41:09 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 Vishal Hui MD [facility] CPT-14100 Level 4 Est. Patient 10:19:35 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 Vishal Hui MD [facility] CPT-91835 Level 3 Est. Patient 13:35:45 CDT Vishal Hui MD [facility] CPT-09652 Level 4 Est. Patient 10:08:37 CDT Vishal Hui MD [facility] CPT-30257 Level 3 Est. Patient 11:22:10 CDT Vishal Hui MD [facility] CPT-42082 Level 3 Est. Patient 11:03:32 CDT Sahara Rodriguez MD PhD [facility] CPT-01551 Level 3 Est. Patient 09:41:35 CDT Vishal Hui MD [facility]-77778 Level 3 Est. Patient 12:00:41 CDT Neeraj Collins MD [facility] CPT-24445 Level 3 Est. Patient 09:16:24 CDT Vishal Hui MD [facility] CPT-22129 Level 4 Est. Patient 13:59:09 CDT Neeraj Collins MD [facility] CPT-55928 Level 3 Est. Patient 15:19:43 CDT Renzo Thornton [facility] CPT-96587 Level 3 Est. Patient 18:10:26 CDT Sahara Rodriguez MD [facility] CPT-91412 Level 3 Est. Patient 14:49:50 CDT Vishal Hui MD [facility] CPT-90263 Level 4 Est. Patient 18:41:46 CDT Neeraj Collins MD [facility] CPT-22335 Level 4 Est. Patient 09:18:38 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 Vishal Hui MD [facility] CPT-98273 Level 3 Est. Patient 14:43:55 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 Vishal Hui MD [facility] CPT-41672 Level 3 Est. Patient 15:26:33 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 Sahara Rodriguez MD [facility] CPT-56083 Level 3 Est. Patient 10:32:14 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 Vishal Hui MD [facility] CPT-17323 Level 3 Est. Patient 15:12:52 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 Vishal Hui MD [facility] CPT-03400 Level 4 Est. Patient 09:19:27 CDT Vishal Hui MD [facility] CPT-39071 Level 3 Est. Patient 15:53:00 CDT Renzo Thornton [facility] CPT-78464 Level 3 Est. Patient 15:50:30 CDT Renzo Thornton [facility] CPT-50921 Level 3 Est. Patient 16:55:24 CDT Vishal Hui MD [facility] Procedures Code Procedure Name Date Entry Date Standard Description CPT-69679 Abx/Therapy Injection 08:47:09 CDT CPT-25176 Abx/Therapy Injection 13:29:56 CDT CPT-81762 Abx/Therapy Injection 08:36:16 CDT CPT-14628 Wet Mount - LAB USE ONLY 17:44:58 CDT CPT-58561 UA w micro - LAB USE ONLY 17:44:58 CDT CPT-81984 CMP - LAB USE ONLY 17:44:58 CDT CPT-75749 Venipuncture Draw Fee 17:44:58 CDT CPT-10301 Cervical Min 4V - XRAY USE ONLY 09:01:40 CDT CPT-56757 Chest 2V Frontal and Lat - XRAY USE ONLY 11:06:31 CDT CPT-61950 EKG Trac and Interp - XRAY USE ONLY 11:31:43 CDT 08/26 CPT-J3420 Vitamin B12 1000mcg (Cyanocobalamin) 08:10:26 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 04/12 CPT-64161 Abx/Therapy Injection 08:10:26 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 CPT-G0438 Initial Annual Wellness Exam 19:01:01 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 CPT-J3420 Vitamin B12 1000mcg (Cyanocobalamin) 16:57:46 CDT 08/14 CPT-40933 Recombivax HB Injection Suspension 5 MCG/0.5ML 08:37:50 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 CPT-19753 Immunization Single Admin 08:37:50 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 CPT-J3420 Vitamin B12 1000mcg (Cyanocobalamin) 08:32:16 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 03/11 CPT-68269 Abx/Therapy Injection 08:32:16 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 CPT-91201 Chest 2V Frontal and Lat 11:46:38 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 CPT-79499 Venipuncture Draw Fee 09:12:45 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 CPT-J3420 Vitamin B12 1000mcg (Cyanocobalamin) 08:50:15 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 02/08 CPT-78648 Abx/Therapy Injection 08:50:15 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 CPT-Cryo Cryotherapy 10:19:35 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 CPT-000 Give Appropriate Flu Vaccine 09:22:16 CDT CPT-J3420 Vitamin B12 1000mcg (Cyanocobalamin) 19:08:57 CDT 01/11 CPT-95281 Abx/Therapy Injection 19:08:57 CDT CPT-J3420 Vitamin B12 1000mcg (Cyanocobalamin) 08:19:08 CDT 12/11 CPT-91124 Abx/Therapy Injection 08:19:08 CDT CPT-J3420 Vitamin B12 1000mcg (Cyanocobalamin) 14:48:00 CDT 11/09 CPT-76775 Abx/Therapy Injection 14:47:59 CDT CPT-J3420 Vitamin B12 1000mcg (Cyanocobalamin) 08:34:04 CDT 10/09 CPT-38186 Abx/Therapy Injection 08:34:04 CDT CPT-J3420 Vitamin B12 1000mcg (Cyanocobalamin) 09:18:52 CDT 09/11 CPT-85434 Abx/Therapy Injection 09:18:52 CDT CPT-J3420 Vitamin B12 1000mcg (Cyanocobalamin) 08:35:44 CDT 09/04 CPT-86733 Abx/Therapy Injection 08:35:44 CDT CPT-51738 Immunization Single Admin 11:07:16 CDT CPT-15273 Hepatitis B adult IM 11:07:16 CDT CPT-J3420 Vitamin B12 1000mcg (Cyanocobalamin) 11:00:49 CDT 08/28 CPT-J1040 Depo Medrol 80 mg (Methyl Prednisolone Acetate) 11:00: 49 CDT CPT-19413 Abx/Therapy Injection 11:00:49 CDT CPT-J1040 Depo Medrol 80 mg (Methyl Prednisolone Acetate) 09:16: 23 CDT CPT-J3420 Vitamin B12 1000mcg (Cyanocobalamin) 08:27:05 CDT 08/20 CPT-70864 Abx/Therapy Injection 08:27:05 CDT CPT-84491 Recombivax HB Injection Suspension 5 MCG/0.5ML 10:00:41 CDT CPT-78089 Administration single or combination vaccine inc oral 10 :00:41 CDT CPT-21905 Sono transvag pelvis non OB uterus ovaries cervix 16:36: 57 CDT CPT-09834 LS spine comp w obliq 09:50:55 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 CPT-75396 Abd compl w upright 09:50:55 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 CPT-J1100 Decadron 4mg (Dexamethasone) 15:51:24 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 CPT-J1030 Depo Medrol 40 mg (Methyl Prednisolone Acetate) 15:51: 24 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
--- OUTSIDE RECORDS SUMMARY | 2016-11-04 14:49 | XMS REPORT | Clinical Summary ---
Author Author Admin, E Organization [facility] [employer] Address Unknown Phone Unavailable Allergies, Adverse [...] sites Morbid obesity 278.01 Active Juliet Kimbrough ROUNDER AND BACKER Morbid obesity 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 Active Juliet Kimbrough ROUNDER AND BACKER Dependence on other enabling machines and devices [...] Shortness of breath 786.05 Active Fabiola Johnson ROUNDER AND BACKER Shortness of breath Nocturnal hypoxia 799.02 Active Fabiola Johnson ROUNDER AND BACKER Hypoxemia Neck pain 723.1 Active Jioral Martínez ROUNDER [employer] BACKER Cervicalgia Anxiety Disorder ICD-300.00 Inactive Vishal Hui [...] Hui MD Personality change ICD-301.9 Inactive Vishal uHi MD Leukocytosis ICD-288.60 Inactive Vishal Hui MD [...] each nostril daily before bed. FLUTICASONE PROPIONATE 28928476217 Active Fabiola Johnson APRN Active VERAPAMIL HCL ER 120 MG ORAL CR-TABS 1 tab po daily for blood pressure 09/27 VERAPAMIL HCL 86347019315 Active Fabiola Johnson APRN Active ADZENYS XR-ODT 6.3 MG ORAL TBED 1 tab po daily for ADHD AMPHETAMINE 11845999951 Active Fabiola Johnson APRN Active BENADRYL 25 MG CAP 4 po at bedtime for insomnia DIPHENHYDRAMINE HCL 21944767752 Active Fabiola Johnson APRN Active KLONOPIN 1 MG ORAL TABS 1 tab po TID CLONAZEPAM 39969821275 Active Fabiola Johnson APRN Active VALIUM 5 MG TAB Take 1-2 tablets daily DIAZEPAM 67223508840 No Longer Active Fabiola Johnson APRN Active METOPROLOL TARTRATE 25 MG ORAL TABS 1/2 tablet twice daily for heart rate and blood pressure METOPROLOL TARTRATE 50577630367 No Longer Active Fabiola Johnson APRN Active MIRALAX ORAL POWD 17GMS DAILY IN WATER POLYETHYLENE GLYCOL 3350 05959871125 Active Vishal Hui MD Active VIIBRYD 10 MG ORAL TABS Take 1 tablet once a day VILAZODONE HCL 66167596485 Active Ahmet Carbajal MD Active DICLOFENAC POTASSIUM TABS Take 1 tablet twice a day (pt. is not sure of the dose.) DICLOFENAC POTASSIUM TABS 88318211127 Active Ahmet Carbajal MD Active MIRALAX PACK 1 po qd PRN Constipation POLYETHYLENE GLYCOL 3350 93613012441 No Longer Active Ahmet Carbajal MD Active MINIPRESS 2 MG CAPS 4 cap po at night PRAZOSIN HCL 73415892054 No Longer Active Ahmet Carbajal MD Active PIROXICAM 20 MG CAPS 1 cap po qd PRN Pain PIROXICAM 72865079863 No Longer Active Ahmet Carbajal MD Active TRAMADOL HCL 50 MG TABS 1-2 po TID PRN Pain TRAMADOL HCL 27440870293 No Longer Active Ahmet Carbajal MD Active METOPROLOL TARTRATE 50 MG TAB 1 po bid METOPROLOL TARTRATE 81595555672 No Longer Active Ahmet Carbajal MD Active ABILIFY 15 MG ORAL TABS 1 tab daily ARIPIPRAZOLE 67986412577 No Longer Active Ahmet Carbajal MD Active PROZAC 20 MG ORAL CAPS 1 tab daily FLUOXETINE HCL 08334899800 No Longer Active Ahmet Carbajal MD Active AMBIEN 5 MG ORAL TABS 1 tab at bedtime ZOLPIDEM TARTRATE 35586909564 No Longer Active Ahmet Carbajal MD Active PREDNISONE 20 MG TAB 2 tabs daily for 4 days, 1 tab daily for 4 days, 1/2 tab daily for 4 days PREDNISONE 64167450063 No Longer Active Ahmet Carbajal MD Active KEFLEX 500 MG CAP 1 po TID x 10 days CEPHALEXIN 55611989887 No Longer Active Vishal Hui MD Active ABILIFY MAINTENA 400 MG IM SUSR Injection once per month ARIPIPRAZOLE 92265279024 Active Juliet Kimbrough APRN Active IMITREX 50 MG ORAL TABS 1/2 tab every 6 hours prn SUMATRIPTAN SUCCINATE 22684731267 Active Jillina Mauricio NORIEGA Active TOPAMAX 50 MG ORAL TABS 1 tab twice daily TOPIRAMATE 06072530865 Active Vishal Hui MD Active SAPHRIS 5 MG SUBL 1 po bid ASENAPINE MALEATE 65560105915 No Longer Active Luigi Martínez APRN Active LATUDA 80 MG TABS Take one by mouth daily LURASIDONE HCL 94763330019 No Longer Active Luigi Martínez APRN Active AMLODIPINE BESYLATE 5 MG TABS 1 tablet by mouth daily AMLODIPINE BESYLATE 72809072784 No Longer Active Luigi Martínez APRN Active AMITRIPTYLINE HCL 100 MG TAB one at hs AMITRIPTYLINE HCL 25252283653 No Longer Active Vishal Hui MD Active TRAZODONE HCL 100 MG TAB take 1 at bedtime TRAZODONE HCL 06315961487 No Longer Active Vishal Hui MD Active VYVANSE 40 MG CAPS 1 daily, LISDEXAMFETAMINE DIMESYLATE 00462606788 No Longer Active Vishal Hui MD Active IBUPROFEN 600 MG TAB 1 po TID PRN IBUPROFEN 67037624896 No Longer Active Vishal Hui MD Active PROZAC 20 MG CAP Take one by mouth daily FLUOXETINE HCL 02922398703 No Longer Active Vishal Hui MD Active ZOFRAN 4 MG TABS 1 po q6hr PRN Nausea ONDANSETRON HCL Active Vishal Hui MD Active BACTRIM DS 800-160 MG TABS 1 pill by mouth twice daily SULFAMETHOXAZOLE-TRIMETHOPRIM 92123231914 No Longer Active Sahara Rodriguez MD PhD Active DIFLUCAN 150 MG TAB 1 tablet by mouth daily FLUCONAZOLE 98985239319 No Longer Active Vishal Hui MD Active TIZANIDINE HCL 4 MG TABS 1 po q6hr PRN Muscle Spasm/Back Pain TIZANIDINE HCL 83780814164 Active Vishal Hui MD Active CLINDAMYCIN HCL 150 MG CAPS 1 four times a day CLINDAMYCIN HCL 06526002852 No Longer Active Neeraj Collins MD Active KEFLEX 500 MG ORAL CAPS 1 cap QID by mouth CEPHALEXIN 41701494854 No Longer Active Neeraj Collins MD Active DIFLUCAN 150 MG TABS 1 pill every other day x 2 doses FLUCONAZOLE 26335910839 No Longer Active Sahara Rodriguez MD PhD Active MELATONIN 3 MG CAPS 2 po q hs MELATONIN 92527217758 No Longer Active Sahara Rodriguez MD PhD Active MULTIVITAMINS CAPS Take one by mouth daily MULTIPLE VITAMIN 96859395503 No Longer Active Sahara Rodriguez MD PhD Active BACTRIM DS 800-160 MG TAB 1 tab by mouth twice daily TRIMETHOPRIM-SULFAMETHOXAZOLE 72509887215 No Longer Active Sahara Rodriguez MD PhD Active [facility] PROBIOTIC ORAL CHEW 2 daily po PROBIOTIC PRODUCT 00652686014 No Longer Active Sahara Rodriguez MD PhD Active BACTRIM DS 800-160 MG TABS 1 po BID x 7 days SULFAMETHOXAZOLE-TRIMETHOPRIM 95151412640 No Longer Active Vishal Hui MD Active CHANTIX STARTING MONTH EARNEST 0.5 MG X 11 & 1 MG X 42 TABS 0.5mg daily for 3 days , then 0.5mg BID for 4 days, then 1mg BID VARENICLINE TARTRATE 25403519953 No Longer Active TAMARA Gray Active VERAPAMIL HCL CR 120 MG TAB CR 1 po bid VERAPAMIL HCL 89904558909 No Longer Active Vishal Hui MD Active METOPROLOL SUCCINATE 50 MG TB24 1 tablet by mouth daily METOPROLOL SUCCINATE 44639390164 No Longer Active Vishal Hui MD Active SAPHRIS 10 MG SUBL 1 tab po bid ASENAPINE MALEATE 23407158884 No Longer Active Vishal Hui MD Active LISINOPRIL 20 MG TABS 1 tab po qd LISINOPRIL 25138556133 No Longer Active Vishal Hui MD Active LATUDA 20 MG TABS Take one by mouth daily LURASIDONE HCL 24911843798 No Longer Active Vishal Hui MD Active TRAZODONE HCL 50 MG TABS 1/2 tab po qd prn for anxiety TRAZODONE HCL 40036182473 No Longer Active Vishal Hui MD Active OMEPRAZOLE 20 MG TBEC 1 po q a.m. 30min prior to first food intake OMEPRAZOLE 11953634858 Active Vishal Hui MD Active RANITIDINE HCL 150 MG CAPS 1 twice a day RANITIDINE HCL 66116705811 Active Luigi Swensonlebron NORIEGA Active LINZESS 290 MCG CAPS Take one by mouth daily LINACLOTIDE 27848738770 No Longer Active Vishal Hui MD Active SAPHRIS 5 MG SUBL 1 tab po qd ASENAPINE MALEATE 44631206321 No Longer Active Vishal Hui MD Active ZALEPLON 10 MG CAPS 1 cap po every other night ZALEPLON 17216084240 No Longer Active Vishal Hui MD Active LYRICA 50 MG CAPS 1 tab po TID PREGABALIN 69304195882 No Longer Active Vishal Hui MD Active LORATADINE 10 MG TABS 1 tab po qd LORATADINE 74980380900 No Longer Active Vishal Hui MD Active VERAPAMIL HCL ER 180 MG CR-TABS 1 tab po bid VERAPAMIL HCL 98168348881 No Longer Active Vishal Hui MD Active MIRALAX POWD 1 capfull once daily POLYETHYLENE GLYCOL 3350 28633193485 No Longer Active Vishal Hui MD Active PREDNISONE 20 MG TABS 1 tab po qd PREDNISONE 67444905552 No Longer Active Renzo Thornton DO Active LEVOFLOXACIN 500 MG TABS 1 tab po qd LEVOFLOXACIN 04068155955 No Longer Active Renzo Thornton DO Active BUSPIRONE HCL 15 MG TABS 1 tab po TID BUSPIRONE HCL 48703722182 No Longer Active Renzo Thornton DO Active BENZTROPINE MESYLATE 1 MG TABS 1 tab po qd BENZTROPINE MESYLATE 61212459242 No Longer Active Renzo Thornton DO Active ATENOLOL 25 MG TABS 1 tab po qd ATENOLOL 39050199324 No Longer Active Renzo Thornton DO Active ESCITALOPRAM OXALATE 20 MG TABS 1 tab po qd ESCITALOPRAM OXALATE 60954527299 No Longer Active Renzo Thornton DO Active ADVAIR DISKUS 250-50 MCG/DOSE AEPB 1 puff BID FLUTICASONE-SALMETEROL 10434134645 No Longer Active Renzo Thornton DO Active PREDNISONE 20 MG TAB 2 tabs daily for 3 days, 1 tab daily for 3 days, 1/2 tab daily for 2 days PREDNISONE 46727827580 No Longer Active Vishal Hui MD Active CEFDINIR 300 MG CAPS by mouth twice a day CEFDINIR 60417844355 No Longer Active Vishal Hui MD Active LANSOPRAZOLE 30 MG CPDR 1 cap po qd LANSOPRAZOLE 31551396978 No Longer Active Vishal Hui MD Active BACLOFEN 20 MG TABS 1 tab po tid BACLOFEN 16132420305 No Longer Active Vishal Hui MD Active ADVAIR DISKUS 250-50 MCG/DOSE AEPB 1 puff BID ADVAIR DISKUS 250-50 MCG/DOSE AEPB FLUTICASONE-SALMETEROL Inactive ESCITALOPRAM OXALATE 20 MG TABS 1 tab po qd ESCITALOPRAM OXALATE 20 MG TABS 260487 ESCITALOPRAM OXALATE Inactive ATENOLOL 25 MG TABS 1 tab po qd ATENOLOL 25 MG TABS 936428 ATENOLOL Inactive BENZTROPINE MESYLATE 1 MG TABS 1 tab po qd BENZTROPINE MESYLATE 1 MG TABS 103275 BENZTROPINE MESYLATE Inactive BUSPIRONE HCL 15 MG TABS 1 tab po TID BUSPIRONE HCL 15 MG TABS 121483 BUSPIRONE HCL Inactive LEVOFLOXACIN 500 MG TABS 1 tab po qd LEVOFLOXACIN 500 MG TABS 647670 LEVOFLOXACIN Inactive PREDNISONE 20 MG TABS 1 tab po qd PREDNISONE 20 MG TABS 037574 PREDNISONE Inactive MIRALAX POWD 1 capfull once daily MIRALAX POWD 610997 POLYETHYLENE GLYCOL 3350 Inactive VERAPAMIL HCL ER 180 MG CR-TABS 1 tab po bid VERAPAMIL HCL ER 180 MG CR-TABS VERAPAMIL HCL Inactive LORATADINE 10 MG TABS 1 tab po qd LORATADINE 10 MG TABS 500587 LORATADINE Inactive LYRICA 50 MG CAPS 1 tab po TID LYRICA 50 MG CAPS PREGABALIN Inactive ZALEPLON 10 MG CAPS 1 cap po every other night ZALEPLON 10 MG CAPS 320876 ZALEPLON Inactive SAPHRIS 5 MG SUBL 1 tab po qd SAPHRIS 5 MG SUBL ASENAPINE MALEATE Inactive TRAZODONE HCL 50 MG TABS 1/2 tab po qd prn for anxiety TRAZODONE HCL 50 MG TABS 462969 TRAZODONE HCL Inactive LATUDA 20 MG TABS Take one by mouth daily LATUDA 20 MG TABS LURASIDONE HCL Inactive LISINOPRIL 20 MG TABS 1 tab po qd LISINOPRIL 20 MG TABS 070883 LISINOPRIL Inactive SAPHRIS 10 MG SUBL 1 [...] twice daily BACTRIM DS 800-160 MG TAB 916658 TRIMETHOPRIM-SULFAMETHOXAZOLE Inactive MULTIVITAMINS CAPS Take one by mouth daily MULTIVITAMINS CAPS MULTIPLE VITAMIN Inactive MELATONIN 3 MG CAPS 2 po q hs MELATONIN 3 MG CAPS 507964 MELATONIN Inactive KEFLEX 500 MG ORAL CAPS 1 cap QID by mouth KEFLEX 500 MG ORAL CAPS 421074 CEPHALEXIN Inactive CLINDAMYCIN HCL 150 MG CAPS 1 four times a day CLINDAMYCIN HCL 150 MG CAPS 298103 CLINDAMYCIN HCL Inactive DIFLUCAN 150 MG TAB 1 tablet by mouth daily DIFLUCAN 150 MG TAB 922516 FLUCONAZOLE Inactive PROZAC 20 MG CAP Take one by mouth daily PROZAC 20 MG CAP 078570 FLUOXETINE HCL Inactive IBUPROFEN 600 MG TAB 1 po TID PRN IBUPROFEN 600 MG TAB 356417 IBUPROFEN Inactive VYVANSE 40 MG CAPS 1 daily, VYVANSE 40 MG CAPS LISDEXAMFETAMINE DIMESYLATE Inactive TRAZODONE HCL 100 MG TAB take 1 at bedtime TRAZODONE HCL 100 MG TAB 959122 TRAZODONE HCL Inactive AMITRIPTYLINE HCL 100 MG TAB one at hs AMITRIPTYLINE HCL 100 MG TAB 449016 AMITRIPTYLINE HCL Inactive AMLODIPINE BESYLATE 5 MG TABS 1 tablet by mouth daily AMLODIPINE BESYLATE 5 MG TABS 737192 AMLODIPINE BESYLATE Inactive LATUDA 80 MG TABS Take one by mouth daily LATUDA 80 MG TABS LURASIDONE HCL Inactive SAPHRIS 5 MG SUBL 1 po bid SAPHRIS 5 MG SUBL ASENAPINE MALEATE Inactive PREDNISONE 20 MG TAB 2 tabs daily for 4 days, 1 tab daily for 4 days, 1/2 tab daily for 4 days PREDNISONE 20 MG TAB 077512 PREDNISONE Inactive AMBIEN 5 MG ORAL TABS 1 tab at bedtime AMBIEN 5 MG ORAL TABS 042404 ZOLPIDEM TARTRATE Inactive PROZAC 20 MG ORAL CAPS 1 tab daily PROZAC 20 MG ORAL CAPS 536039 FLUOXETINE HCL Inactive ABILIFY 15 MG ORAL TABS 1 tab daily ABILIFY 15 MG ORAL TABS 608688 ARIPIPRAZOLE Inactive METOPROLOL TARTRATE 50 MG TAB 1 po bid METOPROLOL TARTRATE 50 MG TAB 773734 METOPROLOL TARTRATE Inactive TRAMADOL HCL 50 MG TABS 1-2 po TID PRN Pain TRAMADOL HCL 50 MG TABS 864949 TRAMADOL HCL Inactive PIROXICAM 20 MG CAPS 1 cap po qd PRN Pain PIROXICAM 20 MG CAPS 700605 PIROXICAM Inactive MINIPRESS 2 MG CAPS 4 cap po at night MINIPRESS 2 MG CAPS 108665 PRAZOSIN HCL Inactive MIRALAX PACK 1 po qd PRN Constipation MIRALAX PACK 919568 POLYETHYLENE GLYCOL 3350 Inactive METOPROLOL TARTRATE 25 MG ORAL TABS 1/2 tablet twice daily for heart rate and blood pressure METOPROLOL TARTRATE 25 MG ORAL TABS 045570 METOPROLOL TARTRATE Inactive VALIUM 5 MG TAB Take 1-2 tablets daily VALIUM 5 MG TAB 267925 DIAZEPAM Inactive CEFDINIR 300 MG CAPS by mouth twice a day CEFDINIR 300 MG CAPS 344658 CEFDINIR Inactive PREDNISONE 20 MG TAB 2 tabs daily for 3 days, 1 tab daily for 3 days, 1/2 tab daily for 2 days PREDNISONE 20 MG TAB 859364 PREDNISONE Inactive BACTRIM DS 800-160 MG TABS 1 po BID x 7 days BACTRIM DS 800-160 MG TABS 19820521 SULFAMETHOXAZOLE-TRIMETHOPRIM Inactive DIFLUCAN 150 MG TABS 1 pill every other day x 2 doses DIFLUCAN 150 MG TABS 363668 FLUCONAZOLE Inactive BACTRIM DS 800-160 MG TABS 1 pill by mouth twice daily BACTRIM DS 800-160 MG TABS 19820521 SULFAMETHOXAZOLE-TRIMETHOPRIM Inactive KEFLEX 500 MG CAP 1 po TID x 10 days KEFLEX 500 MG CAP 705176 CEPHALEXIN Inactive Advance Directives Directive Description Start [...] E&M - 3141-9 275.4 [lb_av] Weight Measured Diagnostic Results Date Name [...] % 11.6-14.8 platelet count 394 10^3/MM^3 10*3/mm3 973-543 4108/01/11 leukocyte count, blood 13.8 10^3/MM^3 10*3/mm3 [...] Panel - Chemistry sodium, serum 139 mmol/L 591-441 8311/12/03 carbon dioxide, venous blood 28.5 mmol/L 21.0-32.0 [...] 5.5 % 4.3-6.0 cholesterol, serum 159 mg/dL 269-701 3930/12/03 triglyceride, serum, fasting 118 mg/dL 30-200 HDL [...] Panel - Chemistry sodium, serum 139 mmol/L 334-145 9691/12/22 carbon dioxide, venous blood 26.8 mmol/L 21.0-32.0 potassium, serum 4.2 mmol/L 3.5-5.2 chloride, serum 103 mmol/L 98-107 blood glucose 115 mg/dL 65-110 urea nitrogen, blood 20 mg/dL 7-18 creatinine, serum 0.90 mg/dL 0.55-1.30 alanine aminotransferase (SGPT), serum 38 U/L - aspartate aminotransferase (SGOT), serum 19 U/L 15-37 calcium, serum 8.6 mg/dL 8.5-10.1 bilirubin, serum, total 0.30 mg/dL 0.00-1.00 sodium, serum 139 mmol/L 701-121 0648/01/11 carbon dioxide, venous blood 26.6 mmol/L 21.0-32.0 potassium, serum 4.1 mmol/L 3.5-5.2 chloride, serum 100 mmol/L 98-107 blood glucose 86 mg/dL 65-110 urea nitrogen, blood 16 mg/dL 7-18 creatinine, serum 1.00 mg/dL 0.55-1.30 alanine aminotransferase (SGPT), serum 48 U/L aspartate aminotransferase (SGOT), serum 17 U/L 15-37 calcium, serum 9.1 mg/dL 8.5-10.1 bilirubin, serum, total 0.40 mg/dL 0.00-1.00 sodium, serum 142 mmol/L 604-493 3766/06/08 carbon dioxide, venous blood 27.6 mmol/L 21.0-32.0 [...] Rate - Chemistry sodium, serum 139 mmol/L 816-568 5547/12/11 carbon dioxide, venous blood 25.4 mmol/L 21.0-32.0 [...] mg/dL Encounters Code Encounter Date Provider Facility CPT-61328 Level 3 Est. Patient 08:56:03 CDT Luigi Martínez [facility] CPT-36375 Level 4 Est. Patient 12:11:48 CDT Fabiola Johnson [facility] CPT-49918 Level 3 New Patient 16:53:37 CDT Albert Caldera MD [facility] CPT-11127 Level 3 Est. Patient 11:25:49 CDT Renzo Thornton DO [facility] CPT-49751 Level 3 Est. Patient 15:22:01 CDT hAmet Carbajal MD [facility] CPT-28559 Level 4 Est. Patient 09:00:51 COMMERCIAL TIRE SERVICE TECHNICIAN Vishal Hui MD [facility] CPT-08547 Level 3 Est. Patient 11:37:33 COMMERCIAL TIRE SERVICE TECHNICIAN Vishal Hui MD [facility] CPT-71133 Level 3 Est. Patient 08:41:09 COMMERCIAL TIRE SERVICE TECHNICIAN Vishal Hui MD [facility] CPT-62607 Level 4 Est. Patient 10:19:35 COMMERCIAL TIRE SERVICE TECHNICIAN Vishal Hui MD [facility] CPT-53512 Level 3 Est. Patient 13:35:45 CDT Vishal Hui MD [facility] CPT-64100 Level 4 Est. Patient 10:08:37 CDT Vishal Hui MD [facility] CPT-87756 Level 3 Est. Patient 11:22:10 CDT Vishal Hui MD [facility] CPT-74854 Level 3 Est. Patient 11:03:32 CDT Sahara Rodriguez MD PhD [facility] CPT-32580 Level 3 Est. Patient 09:41:35 CDT Vishal Hui MD [facility] CPT-60214 Level 3 Est. Patient 12:00:41 CDT Neeraj Collins MD [facility] CPT-37876 Level 3 Est. Patient 09:16:24 CDT Vishal Hui MD [facility] CPT-22109 Level 4 Est. Patient 13:59:09 CDT Neeraj Collins MD [facility] CPT-06070 Level 3 Est. Patient 15:19:43 CDT Renzo Thornton [facility] CPT-76958 Level 3 Est. Patient 18:10:26 CDT Sahara Rodriguez MD [facility]-99723 Level 3 Est. Patient 14:49:50 CDT Vishal Hui MD [facility]-28468 Level 4 Est. Patient 18:41:46 CDT Neeraj Collins MD [facility] CPT-97656 Level 4 Est. Patient 09:18:38 COMMERCIAL TIRE SERVICE TECHNICIAN Vishal Hui MD [facility] CPT-37738 Level 3 Est. Patient 14:43:55 COMMERCIAL TIRE SERVICE TECHNICIAN Vishal Hui MD [facility] CPT-96639 Level 3 Est. Patient 15:26:33 COMMERCIAL TIRE SERVICE TECHNICIAN Sahara Rodriguez MD PhD [facility] CPT-26148 Level 3 Est. Patient 10:32:14 COMMERCIAL TIRE SERVICE TECHNICIAN Vishal Hui MD [facility] CPT-39723 Level 3 Est. Patient 15:12:52 COMMERCIAL TIRE SERVICE TECHNICIAN Vishal Hui MD [facility] CPT-24235 Level 4 Est. Patient 09:19:27 CDT Vishal Hui MD [facility] CPT-53359 Level 3 Est. Patient 15:53:00 CDT Renzo Thornton DO [facility] CPT-50175 Level 3 Est. Patient 15:50:30 CDT Renzo Thornton DO [facility] CPT-64025 Level 3 Est. Patient 16:55:24 CDT Vishal Hui MD [facility] Procedures Code Procedure Name Date Entry Date Standard Description CPT-64716 Cervical Min 4V - XRAY USE ONLY 09:01:40 CDT CPT-66517 Chest 2V Frontal and Lat - XRAY USE ONLY 11:06:31 CDT CPT-60681 EKG Trac and Interp - XRAY USE ONLY 11:31:43 CDT 08/26 CPT-J3420 Vitamin B12 1000mcg (Cyanocobalamin) 08:10:26 COMMERCIAL TIRE SERVICE TECHNICIAN 04/12 CPT-73864 Abx/Therapy Injection 08:10:26 COMMERCIAL TIRE SERVICE TECHNICIAN CPT-G0438 Initial Annual Wellness Exam 19:01:01 COMMERCIAL TIRE SERVICE TECHNICIAN CPT-J3420 Vitamin B12 1000mcg (Cyanocobalamin) 16:57:46 CDT 08/14 CPT-93344 Recombivax HB Injection Suspension 5 MCG/0.5ML 08:37:50 COMMERCIAL TIRE SERVICE TECHNICIAN CPT-62213 Immunization Single Admin 08:37:50 COMMERCIAL TIRE SERVICE TECHNICIAN CPT-J3420 Vitamin B12 1000mcg (Cyanocobalamin) 08:32:16 COMMERCIAL TIRE SERVICE TECHNICIAN 03/11 CPT-66022 Abx/Therapy Injection 08:32:16 COMMERCIAL TIRE SERVICE TECHNICIAN CPT-23337 Chest 2V Frontal and Lat 11:46:38 COMMERCIAL TIRE SERVICE TECHNICIAN CPT-77753 Venipuncture Draw Fee 09:12:45 COMMERCIAL TIRE SERVICE TECHNICIAN CPT-J3420 Vitamin B12 1000mcg (Cyanocobalamin) 08:50:15 COMMERCIAL TIRE SERVICE TECHNICIAN 02/08 CPT-99908 Abx/Therapy Injection 08:50:15 COMMERCIAL TIRE SERVICE TECHNICIAN CPT-Cryo Cryotherapy 10:19:35 COMMERCIAL TIRE SERVICE TECHNICIAN CPT-000 Give Appropriate Flu Vaccine 09:22:16 CDT CPT-J3420 Vitamin B12 1000mcg (Cyanocobalamin) 19:08:57 CDT 01/11 CPT-86026 Abx/Therapy Injection 19:08:57 CDT CPT-J3420 Vitamin B12 1000mcg (Cyanocobalamin) 08:19:08 CDT 12/11 CPT-42632 Abx/Therapy Injection 08:19:08 CDT CPT-J3420 Vitamin B12 1000mcg (Cyanocobalamin) 14:48:00 CDT 11/09 CPT-55513 Abx/Therapy Injection 14:47:59 CDT CPT-J3420 Vitamin B12 1000mcg (Cyanocobalamin) 08:34:04 CDT 10/09 CPT-03467 Abx/Therapy Injection 08:34:04 CDT CPT-J3420 Vitamin B12 1000mcg (Cyanocobalamin) 09:18:52 CDT 09/11 CPT-30915 Abx/Therapy Injection 09:18:52 CDT CPT-J3420 Vitamin B12 1000mcg (Cyanocobalamin) 08:35:44 CDT 09/04 CPT-40160 Abx/Therapy Injection 08:35:44 CDT CPT-56066 Immunization Single Admin 11:07:16 CDT CPT-92532 Hepatitis B adult IM 11:07:16 CDT CPT-J3420 Vitamin B12 1000mcg (Cyanocobalamin) 11:00:49 CDT 08/28 CPT-J1040 Depo Medrol 80 mg (Methyl Prednisolone Acetate) 11:00: 49 CDT CPT-75197 Abx/Therapy Injection 11:00:49 CDT CPT-J1040 Depo Medrol 80 mg (Methyl Prednisolone Acetate) 09:16: 23 CDT CPT-J3420 Vitamin B12 1000mcg (Cyanocobalamin) 08:27:05 CDT 08/20 CPT-02776 Abx/Therapy Injection 08:27:05 CDT CPT-44045 Recombivax HB Injection Suspension 5 MCG/0.5ML 10:00:41 CDT CPT-10275 Administration single or combination vaccine inc oral 10 :00:41 CDT CPT-43570 Sono transvag pelvis non OB uterus ovaries cervix 16:36: 57 CDT CPT-85718 LS spine comp w obliq 09:50:55 COMMERCIAL TIRE SERVICE TECHNICIAN CPT-64779 Abd compl w upright 09:50:55 COMMERCIAL TIRE SERVICE TECHNICIAN CPT-J1100 Decadron 4mg (Dexamethasone) 15:51:24 COMMERCIAL TIRE SERVICE TECHNICIAN CPT-J1030 Depo Medrol 40 mg (Methyl Prednisolone Acetate) 15:51: 24 COMMERCIAL TIRE SERVICE TECHNICIAN CPT-17819 Abx/Therapy Injection 15:51:24 COMMERCIAL TIRE SERVICE TECHNICIAN CPT-J1100 Decadron 4mg (Dexamethasone) 15:26:33 COMMERCIAL TIRE SERVICE TECHNICIAN CPT-J1030 Depo Medrol 40 mg (Methyl Prednisolone Acetate) 15:26: 33 COMMERCIAL TIRE SERVICE TECHNICIAN CPT-76344 Sono retroperitoneal complete kidneys and bladder 17:15: 30 CDT CPT-24741 Abd compl w upright 16:09:25 CDT CPT-J1100 Decadron 8mg (Dexamethasone) 17:07:57 CDT CPT-97755 Abx/Therapy Injection 17:07:57 CDT CPT-J1100 Decadron 8mg (Dexamethasone) 16:55:24 CDT CPT-32378 Chest 2V Frontal and Lat 16:32:44 CDT
--- OUTSIDE RECORDS SUMMARY | 2016-11-04 14:52 | XMS REPORT | Clinical Summary ---
Author Author Admin, E Organization [facility] Address Unknown Phone Unavailable Allergies, [...] breath Nocturnal hypoxia 799.02 Active Fabiola Johnson WHE[employer]ER [employer]ER Hypoxemia Neck pain 723.1 Resolved Vishal Hui [...] TABS 1/2-1 tab TID PRN TRAMADOL HCL 01686181040 Active Lynda Ninoska AUTOMOTIVE COLLISION ESTIMATOR Active PROAIR HFA 108 (90 BASE) MCG/ACT AERS 2 puffs four times a day as needed 2015 ALBUTEROL SULFATE 99051716119 Active Ahmet Carbajal MD Active EQ NICOTINE 21 MG/24HR TRANS PT24 Apply daily to stop smoking NICOTINE 89874219233 Active Ahmet Carbajal MD Active BACTRIM DS 800-160 MG TABS 1 twice a day SULFAMETHOXAZOLE- TRIMETHOPRIM 97243965722 Active Ahmet Carbajal MD Active ADVAIR DISKUS 250-50 MCG/DOSE INH AEPB 1 puff twice a day for asthma FLUTICASONE-SALMETEROL 55528378829 Active Ahmet Carbajal MD Active MONISTAT 7 COMBO PACK WOODROW 100 & 2 MG-% (9GM) VAG KIT 1 applicatorful per vagina q pm x 7 MICONAZOLE NITRATE 03898788814 No Longer Active Ahmet Carbajal MD Active FLAGYL 500 MG TAB 1 tablet by mouth bid METRONIDAZOLE 89803939266 No Longer Active Ahmet Carbajal MD Active OXYCODONE HCL ER 10 MG ORAL T12A 1/2 tab by mouth every 4 hours prn OXYCODONE HCL 10908130461 No Longer Active Ahmet Carbajal MD Active METHYLPREDNISOLONE 4 MG ORAL TABS po daily METHYLPREDNISOLONE 21296013646 No Longer Active Ahmet Carbajal MD Active LEVOFLOXACIN 500 MG ORAL TABS po daily LEVOFLOXACIN 00192422195 No Longer Active Ahmet Carbajal MD Active VIIBRYD 10 MG ORAL TABS Take 1 tablet once a day VILAZODONE HCL 25567208464 No Longer Active Ahmet Carbajal MD Active TOPAMAX 50 MG ORAL TABS 1 tab twice daily TOPIRAMATE 19425965346 No Longer Active Ahmet Carbajal MD Active DICLOFENAC SODIUM 50 MG TBEC 1 tablet by mouth four times daily PRN Pain 2015 DICLOFENAC SODIUM 00029372654 No Longer Active Ahmet Carbajal MD Active ADZENYS XR-ODT 6.3 MG ORAL TBED 1 tab po daily for ADHD AMPHETAMINE 11460589724 No Longer Active Ahmet Carbajal MD Active CHANTIX 1 MG TABS 1 twice a day to help quit smoking VARENICLINE TARTRATE 71478358141 No Longer Active Dipika Burgos MD Active CHANTIX STARTING MONTH EARNEST 0.5 MG X 11 & 1 MG X 42 TABS take as directed 2015 VARENICLINE TARTRATE 52124376378 No Longer Active Dipika Burgos MD Active TESSALON PERLES 100 MG CAP 1 to 2 tablets by mouth 3 times daily as needed for cough BENZONATATE 08302958568 No Longer Active Luigi Martínez [employer]UER Active KENN MAINTENA 400 MG IM SUSR 400mg injection every 26 days ARIPIPRAZOLE 31721020924 Active Silvia Casey AUTOMOTIVE COLLISION ESTIMATOR Active IMITREX 50 MG ORAL TABS 0.5 po x 1 PRN Headache. May repeat dose x 1 in 2 hours if needed SUMATRIPTAN SUCCINATE 73538995923 Active Vishal Hui MD Active HYDROCODONE-ACETAMINOPHEN 5-325 MG TABS 1 to 2 four times a day as needed for pain use until can be seen by specialist HYDROCODONE- ACETAMINOPHEN 11631628970 No Longer Active Vishal Hiu MD Active PROAIR HFA 108 (90 BASE) MCG/ACT AERS 2 puffs four times a day as needed 2015 ALBUTEROL SULFATE 66850469259 No Longer Active Vishal Hui MD Active PREDNISONE 20 MG TABS 2 daily for 5 days then 1 daily for 5 days PREDNISONE 50119517996 No Longer Active Vishal Hui MD Active ZITHROMAX Z-EARNEST 250 MG TABS 2 today and then 1 daily for 4 days AZITHROMYCIN 65543739999 No Longer Active Vishal Hui MD Active DICLOFENAC POTASSIUM TABS Take 1 tablet twice a day (pt. is not sure of the dose.) DICLOFENAC POTASSIUM TABS 19327456830 No Longer Active Vishal Hui MD Active VERAPAMIL HCL ER 120 MG ORAL CR-TABS Take 1 tablet by mouth twice a day. VERAPAMIL HCL 73828990156 Active Vishal Hui MD Active FLAGYL 500 MG TAB 1 tablet by mouth bid METRONIDAZOLE 62438039694 No Longer Active Vishal Hui MD Active FLUTICASONE PROPIONATE 50 MCG/ACT SUSP 2 sprays each nostril daily before bed. FLUTICASONE PROPIONATE 66926908676 Active Fabiola Johnson APRN Active BENADRYL 25 MG CAP 4 po at bedtime for insomnia DIPHENHYDRAMINE HCL 20519030906 Active Fabiola Johnson APRN Active KLONOPIN 1 MG ORAL TABS 1 tab po TID CLONAZEPAM 91148876975 Active Fabiola Johnson APRN Active VALIUM 5 MG TAB Take 1-2 tablets daily DIAZEPAM 57313249772 No Longer Active Fabiola Johnson APRN Active METOPROLOL TARTRATE 25 MG ORAL TABS 1/2 tablet twice daily for heart rate and blood pressure METOPROLOL TARTRATE 17392251789 No Longer Active Fabiola Johnson APRN Active MIRALAX ORAL POWD 17GMS DAILY IN WATER POLYETHYLENE GLYCOL 3350 04023310187 Active Vishal Hui MD Active MIRALAX PACK 1 po qd PRN Constipation POLYETHYLENE GLYCOL 3350 65816573875 No Longer Active Ahmet Carbajal MD Active MINIPRESS 2 MG CAPS 4 cap po at night PRAZOSIN HCL 61942219403 No Longer Active Ahmet Carbajal MD Active PIROXICAM 20 MG CAPS 1 cap po qd PRN Pain PIROXICAM 49707096048 No Longer Active Ahmet Carbajal MD Active TRAMADOL HCL 50 MG TABS 1-2 po TID PRN Pain TRAMADOL HCL 73941586974 No Longer Active Ahmet Carbajal MD Active METOPROLOL TARTRATE 50 MG TAB 1 po bid METOPROLOL TARTRATE 38999861315 No Longer Active Ahmet Carbajal MD Active ABILIFY 15 MG ORAL TABS 1 tab daily ARIPIPRAZOLE 59657238723 No Longer Active Ahmet Carbajal MD Active PROZAC 20 MG ORAL CAPS 1 tab daily FLUOXETINE HCL 67668590261 No Longer Active Ahmet Carbajal MD Active AMBIEN 5 MG ORAL TABS 1 tab at bedtime ZOLPIDEM TARTRATE 17862087556 No Longer Active Ahmet Carbajal MD Active PREDNISONE 20 MG TAB 2 tabs daily for 4 days, 1 tab daily for 4 days, 1/2 tab daily for 4 days PREDNISONE 44933984774 No Longer Active Ahmet Carbajal MD Active KEFLEX 500 MG CAP 1 po TID x 10 days CEPHALEXIN 21576464292 No Longer Active Vishal Hui MD Active SAPHRIS 5 MG SUBL 1 po bid ASENAPINE MALEATE 73406129916 No Longer Active Pacollina Mauricio NORIEGA Active LATUDA 80 MG TABS Take one by mouth daily LURASIDONE HCL 03530919674 No Longer Active Jillina Frazelephraim [employer]ER [employer] TRUER Active AMLODIPINE BESYLATE 5 MG TABS 1 tablet by mouth daily AMLODIPINE BESYLATE 00250591545 No Longer Active Jillina Frazell WHE[employer]ACER [employer] TRUER Active AMITRIPTYLINE HCL 100 MG TAB one at hs AMITRIPTYLINE HCL 37381528770 No Longer Active Vishal Hui MD Active TRAZODONE HCL 100 MG TAB take 1 at bedtime TRAZODONE HCL 46662481313 No Longer Active Vishal Hui MD Active VYVANSE 40 MG CAPS 1 daily, LISDEXAMFETAMINE DIMESYLATE 92075539225 No Longer Active Vishal Hui MD Active IBUPROFEN 600 MG TAB 1 po TID PRN IBUPROFEN 81170360387 No Longer Active Vishal Hui MD Active PROZAC 20 MG CAP Take one by mouth daily FLUOXETINE HCL 27255866827 No Longer Active Vishal Hui MD Active ZOFRAN 4 MG TABS 1 po q6hr PRN Nausea ONDANSETRON HCL Active Vishal Hui MD Active BACTRIM DS 800-160 MG TABS 1 pill by mouth twice daily SULFAMETHOXAZOLE-TRIMETHOPRIM 54471227466 No Longer Active Sahara Rodriguez MD PhD Active DIFLUCAN 150 MG TAB 1 tablet by mouth daily FLUCONAZOLE 92300312688 No Longer Active Vishal Hui MD Active TIZANIDINE HCL 4 MG TABS 1 po q6hr PRN Muscle Spasm/Back Pain TIZANIDINE HCL 10632562426 Active Vishal Hui MD Active CLINDAMYCIN HCL 150 MG CAPS 1 four times a day CLINDAMYCIN HCL 86327017411 No Longer Active Neeraj Collins MD Active KEFLEX 500 MG ORAL CAPS 1 cap QID by mouth CEPHALEXIN 12856599591 No Longer Active Neeraj Collins MD Active DIFLUCAN 150 MG TABS 1 pill every other day x 2 doses FLUCONAZOLE 69168387171 No Longer Active Sahara Rodriguez MD PhD Active MELATONIN 3 MG CAPS 2 po q hs MELATONIN 36947772471 No Longer Active Sahara Rodriguez MD PhD Active MULTIVITAMINS CAPS Take one by mouth daily MULTIPLE VITAMIN 43646711264 No Longer Active Sahara Rodriguez MD PhD Active BACTRIM DS 800-160 MG TAB 1 tab by mouth twice daily TRIMETHOPRIM-SULFAMETHOXAZOLE 72892783014 No Longer Active Sahara Rodriguez MD PhD Active [facility] PROBIOTIC ORAL CHEW 2 daily po PROBIOTIC PRODUCT 93516906508 No Longer Active Sahara Rodriguez MD PhD Active BACTRIM DS 800-160 MG TABS 1 po BID x 7 days SULFAMETHOXAZOLE-TRIMETHOPRIM 38521544504 No Longer Active Vishal Hui MD Active CHANTIX STARTING MONTH EARNEST 0.5 MG X 11 & 1 MG X 42 TABS 0.5mg daily for 3 days , then 0.5mg BID for 4 days, then 1mg BID VARENICLINE TARTRATE 09920639259 No Longer Active TAMARA Gray Active VERAPAMIL HCL CR 120 MG TAB CR 1 po bid VERAPAMIL HCL 69300340772 No Longer Active Vishal Hui MD Active METOPROLOL SUCCINATE 50 MG TB24 1 tablet by mouth daily METOPROLOL SUCCINATE 79494299718 No Longer Active Vishal Hui MD Active SAPHRIS 10 MG SUBL 1 tab po bid ASENAPINE MALEATE 39374627244 No Longer Active Vishal Hui MD Active LISINOPRIL 20 MG TABS 1 tab po qd LISINOPRIL 57703130320 No Longer Active Vishal Hui MD Active LATUDA 20 MG TABS Take one by mouth daily LURASIDONE HCL 80923440420 No Longer Active Vishal Hui MD Active TRAZODONE HCL 50 MG TABS 1/2 tab po qd prn for anxiety TRAZODONE HCL 69966268103 No Longer Active Vishal Hui MD Active OMEPRAZOLE 20 MG TBEC 1 po q a.m. 30min prior to first food intake OMEPRAZOLE 13603257157 Active Vishal Hui MD Active RANITIDINE HCL 150 MG CAPS 1 twice a day RANITIDINE HCL 83158720530 Active Luigi Martínez APRN Active LINZESS 290 MCG CAPS Take one by mouth daily LINACLOTIDE 02812121311 No Longer Active Vishal Hui MD Active SAPHRIS 5 MG SUBL 1 tab po qd ASENAPINE MALEATE 69047297977 No Longer Active Vishal Hui MD Active ZALEPLON 10 MG CAPS 1 cap po every other night ZALEPLON 40588600917 No Longer Active Vishal Hui MD Active LYRICA 50 MG CAPS 1 tab po TID PREGABALIN 94997907134 No Longer Active Vishal Hui MD Active LORATADINE 10 MG TABS 1 tab po qd LORATADINE 16717336200 No Longer Active Vishal Hui MD Active VERAPAMIL HCL ER 180 MG CR-TABS 1 tab po bid VERAPAMIL HCL 15272553174 No Longer Active Vishal Hui MD Active MIRALAX POWD 1 capfull once daily POLYETHYLENE GLYCOL 3350 72887809855 No Longer Active Vishal Hui MD Active PREDNISONE 20 MG TABS 1 tab po qd PREDNISONE 51168589650 No Longer Active Renzo Thornton DO Active LEVOFLOXACIN 500 MG TABS 1 tab po qd LEVOFLOXACIN 64479370914 No Longer Active Renzo Thornton DO Active BUSPIRONE HCL 15 MG TABS 1 tab po TID BUSPIRONE HCL 48246405534 No Longer Active Renzo Thornton DO Active BENZTROPINE MESYLATE 1 MG TABS 1 tab po qd BENZTROPINE MESYLATE 27213327115 No Longer Active Renzo Thornton DO Active ATENOLOL 25 MG TABS 1 tab po qd ATENOLOL 72395368387 No Longer Active Renzo Thornton DO Active ESCITALOPRAM OXALATE 20 MG TABS 1 tab po qd ESCITALOPRAM OXALATE 86628621979 No Longer Active Renzo Thornton DO Active ADVAIR DISKUS 250-50 MCG/DOSE AEPB 1 puff BID FLUTICASONE-SALMETEROL 35636523882 No Longer Active Renzo Thornton DO Active PREDNISONE 20 MG TAB 2 tabs daily for 3 days, 1 tab daily for 3 days, 1/2 tab daily for 2 days PREDNISONE 10419992777 No Longer Active Vishal Hui MD Active CEFDINIR 300 MG CAPS by mouth twice a day CEFDINIR 25130990132 No Longer Active Vishal Hui MD Active LANSOPRAZOLE 30 MG CPDR 1 cap po qd LANSOPRAZOLE 75019800738 No Longer Active Vishal Hui MD Active BACLOFEN 20 MG TABS 1 tab po tid BACLOFEN 97090903493 No Longer Active Vishal Hui MD Active ADVAIR DISKUS 250-50 MCG/DOSE AEPB 1 puff BID ADVAIR DISKUS 250-50 MCG/DOSE AEPB FLUTICASONE-SALMETEROL Inactive ESCITALOPRAM OXALATE 20 MG TABS 1 tab po qd ESCITALOPRAM OXALATE 20 MG TABS 580598 ESCITALOPRAM OXALATE Inactive ATENOLOL 25 MG TABS 1 tab po qd ATENOLOL 25 MG TABS 647696 ATENOLOL Inactive BENZTROPINE MESYLATE 1 MG TABS 1 tab po qd BENZTROPINE MESYLATE 1 MG TABS 449078 BENZTROPINE MESYLATE Inactive BUSPIRONE HCL 15 MG TABS 1 tab po TID BUSPIRONE HCL 15 MG TABS 173349 BUSPIRONE HCL Inactive LEVOFLOXACIN 500 MG TABS 1 tab po qd LEVOFLOXACIN 500 MG TABS 950708 LEVOFLOXACIN Inactive PREDNISONE 20 MG TABS 1 tab po qd PREDNISONE 20 MG TABS 892639 PREDNISONE Inactive MIRALAX POWD 1 capfull once daily MIRALAX POWD 271787 POLYETHYLENE GLYCOL 3350 Inactive VERAPAMIL HCL ER 180 MG CR-TABS 1 tab po bid VERAPAMIL HCL ER 180 MG CR-TABS VERAPAMIL HCL Inactive LORATADINE 10 MG TABS 1 tab po qd LORATADINE 10 MG TABS 728547 LORATADINE Inactive LYRICA 50 MG CAPS 1 tab po TID LYRICA 50 MG CAPS PREGABALIN Inactive ZALEPLON 10 MG CAPS 1 cap po every other night ZALEPLON 10 MG CAPS 116760 ZALEPLON Inactive SAPHRIS 5 MG SUBL 1 tab po qd SAPHRIS 5 MG SUBL ASENAPINE MALEATE Inactive TRAZODONE HCL 50 MG TABS 1/2 tab po qd prn for anxiety TRAZODONE HCL 50 MG TABS 109757 TRAZODONE HCL Inactive LATUDA 20 MG TABS Take one by mouth daily LATUDA 20 MG TABS LURASIDONE HCL Inactive LISINOPRIL 20 MG TABS 1 tab po qd LISINOPRIL 20 MG TABS 498363 LISINOPRIL Inactive SAPHRIS 10 MG SUBL 1 [...] twice daily BACTRIM DS 800-160 MG TAB 868378 TRIMETHOPRIM-SULFAMETHOXAZOLE Inactive MULTIVITAMINS CAPS Take one by mouth daily MULTIVITAMINS CAPS MULTIPLE VITAMIN Inactive MELATONIN 3 MG CAPS 2 po q hs MELATONIN 3 MG CAPS 115038 MELATONIN Inactive KEFLEX 500 MG ORAL CAPS 1 cap QID by mouth KEFLEX 500 MG ORAL CAPS 595458 CEPHALEXIN Inactive CLINDAMYCIN HCL 150 MG CAPS 1 four times a day CLINDAMYCIN HCL 150 MG CAPS 19740326 CLINDAMYCIN HCL Inactive DIFLUCAN 150 MG TAB 1 tablet by mouth daily DIFLUCAN 150 MG TAB 068486 FLUCONAZOLE Inactive PROZAC 20 MG CAP Take one by mouth daily PROZAC 20 MG CAP 760216 FLUOXETINE HCL Inactive IBUPROFEN 600 MG TAB 1 po TID PRN IBUPROFEN 600 MG TAB 501853 IBUPROFEN Inactive VYVANSE 40 MG CAPS 1 daily, VYVANSE 40 MG CAPS LISDEXAMFETAMINE DIMESYLATE Inactive TRAZODONE HCL 100 MG TAB take 1 at bedtime TRAZODONE HCL 100 MG TAB 250623 TRAZODONE HCL Inactive AMITRIPTYLINE HCL 100 MG TAB one at hs AMITRIPTYLINE HCL 100 MG TAB 064315 AMITRIPTYLINE HCL Inactive AMLODIPINE BESYLATE 5 MG TABS 1 tablet by mouth daily AMLODIPINE BESYLATE 5 MG TABS 407200 AMLODIPINE BESYLATE Inactive LATUDA 80 MG TABS Take one by mouth daily LATUDA 80 MG TABS LURASIDONE HCL Inactive SAPHRIS 5 MG SUBL 1 po bid SAPHRIS 5 MG SUBL ASENAPINE MALEATE Inactive PREDNISONE 20 MG TAB 2 tabs daily for 4 days, 1 tab daily for 4 days, 1/2 tab daily for 4 days PREDNISONE 20 MG TAB 566678 PREDNISONE Inactive AMBIEN 5 MG ORAL TABS 1 tab at bedtime AMBIEN 5 MG ORAL TABS 276946 ZOLPIDEM TARTRATE Inactive PROZAC 20 MG ORAL CAPS 1 tab daily PROZAC 20 MG ORAL CAPS 212071 FLUOXETINE HCL Inactive ABILIFY 15 MG ORAL TABS 1 tab daily ABILIFY 15 MG ORAL TABS 047783 ARIPIPRAZOLE Inactive METOPROLOL TARTRATE 50 MG TAB 1 po bid METOPROLOL TARTRATE 50 MG TAB 072802 METOPROLOL TARTRATE Inactive TRAMADOL HCL 50 MG TABS 1-2 po TID PRN Pain TRAMADOL HCL 50 MG TABS 260869 TRAMADOL HCL Inactive PIROXICAM 20 MG CAPS 1 cap po qd PRN Pain PIROXICAM 20 MG CAPS 878833 PIROXICAM Inactive MINIPRESS 2 MG CAPS 4 cap po at night MINIPRESS 2 MG CAPS 842579 PRAZOSIN HCL Inactive MIRALAX PACK 1 po qd PRN Constipation MIRALAX PACK 751634 POLYETHYLENE GLYCOL 3350 Inactive METOPROLOL TARTRATE 25 MG ORAL TABS 1/2 tablet twice daily for heart rate and blood pressure METOPROLOL TARTRATE 25 MG ORAL TABS 129668 METOPROLOL TARTRATE Inactive VALIUM 5 MG TAB Take 1-2 tablets daily VALIUM 5 MG TAB 919565 DIAZEPAM Inactive FLAGYL 500 MG TAB 1 tablet by mouth bid FLAGYL 500 MG TAB 499251 METRONIDAZOLE Inactive DICLOFENAC POTASSIUM TABS Take 1 tablet twice a day (pt. is not sure of the dose.) DICLOFENAC POTASSIUM TABS DICLOFENAC POTASSIUM TABS Inactive ZITHROMAX Z-EARNEST 250 MG TABS 2 today and then 1 daily for 4 days ZITHROMAX Z-EARNEST 250 MG TABS 0171767 AZITHROMYCIN Inactive PREDNISONE 20 MG TABS 2 daily for 5 days then 1 daily for 5 days PREDNISONE 20 MG TABS 641723 PREDNISONE Inactive PROAIR HFA 108 (90 BASE) MCG/ACT AERS 2 puffs four times a day as needed 2015 PROAIR HFA 108 (90 BASE) MCG/ACT AERS ALBUTEROL SULFATE Inactive HYDROCODONE-ACETAMINOPHEN 5-325 MG TABS 1 to 2 four times a day as needed for pain use until can be seen by specialist HYDROCODONE- ACETAMINOPHEN 5-325 MG TABS 858881 HYDROCODONE-ACETAMINOPHEN Inactive TESSALON PERLES 100 MG CAP 1 to 2 tablets by mouth 3 times daily as needed for cough TESSALON PERLES 100 MG CAP 638679 BENZONATATE Inactive CHANTIX STARTING MONTH EARNEST 0.5 [...] Pain 2015 DICLOFENAC SODIUM 50 MG TBEC 960901 DICLOFENAC SODIUM Inactive TOPAMAX 50 MG ORAL TABS 1 tab twice daily TOPAMAX 50 MG ORAL TABS 437630 TOPIRAMATE Inactive VIIBRYD 10 MG ORAL TABS Take 1 tablet once a day VIIBRYD 10 MG ORAL TABS VILAZODONE HCL Inactive LEVOFLOXACIN 500 MG ORAL TABS po daily LEVOFLOXACIN 500 MG ORAL TABS 469491 LEVOFLOXACIN Inactive METHYLPREDNISOLONE 4 MG ORAL TABS po daily METHYLPREDNISOLONE 4 MG ORAL TABS 622886 METHYLPREDNISOLONE Inactive OXYCODONE HCL ER 10 MG ORAL T12A 1/2 tab by mouth every 4 hours prn OXYCODONE HCL ER 10 MG ORAL T12A OXYCODONE HCL Inactive FLAGYL 500 MG TAB 1 tablet by mouth bid FLAGYL 500 MG TAB 409030 METRONIDAZOLE Inactive MONISTAT 7 COMBO PACK WOODROW 100 & 2 MG-% (9GM) VAG KIT 1 applicatorful per vagina q pm x 7 MONISTAT 7 COMBO PACK WOODROW 100 & 2 MG-% (9GM) VAG KIT MICONAZOLE NITRATE Inactive CEFDINIR 300 MG CAPS by mouth twice a day CEFDINIR 300 MG CAPS 438996 CEFDINIR Inactive PREDNISONE 20 MG TAB 2 tabs daily for 3 days, 1 tab daily for 3 days, 1/2 tab daily for 2 days PREDNISONE 20 MG TAB 688255 PREDNISONE Inactive BACTRIM DS 800-160 MG TABS 1 po BID x 7 days BACTRIM DS 800-160 MG TABS 19820521 SULFAMETHOXAZOLE-TRIMETHOPRIM Inactive DIFLUCAN 150 MG TABS 1 pill every other day x 2 doses DIFLUCAN 150 MG TABS 862911 FLUCONAZOLE Inactive BACTRIM DS 800-160 MG TABS 1 pill by mouth twice daily BACTRIM DS 800-160 MG TABS 928769 SULFAMETHOXAZOLE-TRIMETHOPRIM Inactive KEFLEX 500 MG CAP 1 po TID x 10 days KEFLEX 500 MG CAP 952045 CEPHALEXIN Inactive Advance Directives Directive Description Start [...] % 11.6-14.8 platelet count 394 10^3/MM^3 10*3/mm3 152-889 0474/01/11 leukocyte count, blood 13.8 10^3/MM^3 10*3/mm3 4.6-10.2 [...] Panel - Chemistry sodium, serum 139 mmol/L 123-647 7440/12/03 carbon dioxide, venous blood 28.5 mmol/L 21.0-32.0 [...] 5.5 % 4.3-6.0 cholesterol, serum 159 mg/dL 934-213 6441/12/03 triglyceride, serum, fasting 118 mg/dL 30-200 HDL [...] 362 10^3/MM^3 10*3/mm3 142-424 Lab Report: Chlamydia/GC [id number] - Lab chlamydia DNA probe NOT DETECTED NOT DETECTED Lab Report: Chlamydia/GC [id number] - Microbiology Neisseria gonorrhoeae DNA probe NOT DETECTED NOT DETECTED Lab Report: Comp. Metabolic Panel - Chemistry carbon dioxide, venous blood 26.8 mmol/L 21.0-32.0 potassium, serum 4.2 mmol/L 3.5-5.2 chloride, serum 103 mmol/L 98-107 blood glucose 115 mg/dL 65-110 urea nitrogen, blood 20 mg/dL 7-18 sodium, serum 139 mmol/L 699-901 8496/12/22 creatinine, serum 0.90 mg/dL 0.55-1.30 alanine aminotransferase (SGPT), serum 38 U/L 12-78 aspartate aminotransferase (SGOT), serum 19 U/L 15-37 calcium, serum 8.6 mg/dL 8.5-10.1 bilirubin, serum, total 0.30 mg/dL 0.00-1.00 sodium, serum 139 mmol/L 907-222 9622/01/11 carbon dioxide, venous blood 26.6 mmol/L 21.0-32.0 potassium, serum 4.1 mmol/L 3.5-5.2 chloride, serum 100 mmol/L 98-107 blood glucose 86 mg/dL 65-110 urea nitrogen, blood 16 mg/dL 7-18 creatinine, serum 1.00 mg/dL 0.55-1.30 alanine aminotransferase (SGPT), serum 48 U/L - aspartate aminotransferase (SGOT), serum 17 U/L 15-37 calcium, serum 9.1 mg/dL 8.5-10.1 bilirubin, serum, total 0.40 mg/dL 0.00-1.00 sodium, serum 142 mmol/L 902-370 8984/06/08 carbon dioxide, venous blood 27.6 mmol/L 21.0-32.0 potassium, serum 4.0 mmol/L 3.5-5.2 chloride, serum 105 mmol/L 98-107 blood glucose 95 mg/dL 65-110 urea nitrogen, blood 8 mg/dL 7-18 creatinine, serum 0.75 mg/dL 0.55-1.30 alanine aminotransferase (SGPT), serum 49 U/L aspartate aminotransferase (SGOT), serum 28 U/L - calcium, serum 9.4 mg/dL 8.5-10.1 bilirubin, serum, total 0.30 mg/dL 0.00-1.00 sodium, serum 140 mmol/L 749-423 1169/08/08 carbon dioxide, venous blood 33.7 mmol/L 21.0-32.0 [...] Rate - Chemistry sodium, serum 139 mmol/L 622-243 2051/12/11 creatinine, serum 0.96 mg/dL 0.55-1.30 alanine aminotransferase [...] Negative Negative nitrite, urine, semiquantitative Negative Negative ketones, urine, by [...] 5.5 5.0-8.5 glucose, urine, semiquantitative Negative Negative urine color Yellow Colorless;Lightyellow;Straw;Yellow ketones, urine, by test strip Negative Negative bilirubin, urine Negative Negative Office Visit: Consult for Painful Lipoma - Chemistry cholesterol, target level 200 mg/dL triglyceride, target level 200 mg/dL HDL cholesterol, serum, target level 35 mg/dL LDL target level 100 mg/dL Encounters Code Encounter Date Provider Facility CPT-63198 Level 3 Est. Patient 15:07:06 EPIC KALEIDOSCOPE ANALYST Neeraj Collins MD [facility] CPT-72677 Level 4 Est. Patient 14:45:00 EPIC KALEIDOSCOPE ANALYST Ahmet Carbajal MD [facility] CPT-31788 Level 3 Est. Patient 13:59:59 CDT Luigi Martínez APRN [facility] CPT-69585 Level 3 Est. Patient 18:18:53 CDT Neeraj Collins MD [facility] CPT-82932 Level 3 Est. Patient 15:50:44 CDT Vishal Hui MD [facility] CPT-73831 Level 3 Est. Patient 11:36:17 CDT Ahmet Carbajal MD [facility] CPT-67371 Level 3 Est. Patient 13:29:16 CDT Vishal Hui MD [facility] CPT-67220 Level 3 Est. Patient 14:27:52 CDT Neeraj Collins MD [facility] CPT-03579 Level 3 Est. Patient 08:56:03 CDT Luigi Martínez [facility] CPT-59292 Level 4 Est. Patient 12:11:48 CDT Fabiola Johnson [facility] CPT-34958 Level 3 New Patient 16:53:37 CDT Albert Caldera MD [facility] CPT-35508 Level 3 Est. Patient 11:25:49 CDT Renzo Thornton DO [facility] CPT-96421 Level 3 Est. Patient 15:22:01 CDT Ahmet Carbajal MD [facility] CPT-67173 Level 4 Est. Patient 09:00:51 EPIC KALEIDOSCOPE ANALYST Vishal Hui MD [facility] CPT-87625 Level 3 Est. Patient 11:37:33 EPIC KALEIDOSCOPE ANALYST Vishal Hui MD [facility] CPT-23453 Level 3 Est. Patient 08:41:09 EPIC KALEIDOSCOPE ANALYST Vishal Hui MD [facility] CPT-42168 Level 4 Est. Patient 10:19:35 EPIC KALEIDOSCOPE ANALYST Vishal Hui MD [facility] CPT-15948 Level 3 Est. Patient 13:35:45 CDT Vishal Hui MD [facility] CPT-33739 Level 4 Est. Patient 10:08:37 CDT Vishal Hui MD [facility] CPT-66587 Level 3 Est. Patient 11:22:10 CDT Vishal Hui MD [facility] CPT-82042 Level 3 Est. Patient 11:03:32 CDT Sahara Rodriguez MD PhD [facility] CPT-79420 Level 3 Est. Patient 09:41:35 CDT Vishal Hui MD [facility] CPT-98715 Level 3 Est. Patient 12:00:41 CDT Neeraj [id number] Level 3 Est. Patient 09:16:24 CDT Vishal Hui MD [facility] CPT-25915 Level 4 Est. Patient 13:59:09 CDT Neeraj Collins MD [facility] CPT-99980 Level 3 Est. Patient 15:19:43 CDT Renzo Thornton [facility] CPT-43284 Level 3 Est. Patient 18:10:26 CDT Sahara Rodriguez MD PhD [facility] CPT-31123 Level 3 Est. Patient 14:49:50 CDT Vishal Hui MD [id number] Level 4 Est. Patient 18:41:46 CDT Neeraj Collins MD [id number] Level 4 Est. Patient 09:18:38 EPIC KALEIDOSCOPE ANALYST Vishal Hui MD [facility] CPT-69746 Level 3 Est. Patient 14:43:55 EPIC KALEIDOSCOPE ANALYST Vishal Hui MD [facility] CPT-79258 Level 3 Est. Patient 15:26:33 EPIC KALEIDOSCOPE ANALYST Sahara Rodriguez MD [facility]-[address] Level 3 Est. Patient 10:32:14 EPIC KALEIDOSCOPE ANALYST Vishal Hui MD [facility] CPT-50184 Level 3 Est. Patient 15:12:52 EPIC KALEIDOSCOPE ANALYST Vishal Hui MD [facility] CPT-06543 Level 4 Est. Patient 09:19:27 CDT Vishal Hui MD [facility] CPT-42748 Level 3 Est. Patient 15:53:00 CDT Renzo Thornton [facility]-12010 Level 3 Est. Patient 15:50:30 CDT Renzo Thornton [facility] CPT-29976 Level 3 Est. 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 CPT-10496 Nexplanon Removal with Reinsertion 14:09:32 CDT CPT-J7307 Nexplanon (Implant) 14:09:32 CDT CPT-OV Office Visit 14:09:32 CDT CPT-45696 UA w micro - LAB USE ONLY 16:21:13 CDT CPT-58593 Wet Mount - LAB USE ONLY 16:21:13 CDT CPT-17876 First Vx - Ix admin for Medicare patients 14:37:47 CDT CPT-60528 Fluzone Preservative Free Intramuscular Suspension 14:37 :47 CDT CPT-06421 Abx/Therapy Injection 13:54:22 CDT CPT-93565 Abx/Therapy Injection 08:47:09 CDT CPT-32760 Abx/Therapy Injection 13:29:56 CDT CPT-97135 Abx/Therapy Injection 08:36:16 CDT CPT-05669 Wet Mount - LAB USE ONLY 17:44:58 CDT CPT-93859 UA w micro - LAB USE ONLY 17:44:58 CDT CPT-45274 CMP - LAB USE ONLY 17:44:58 CDT CPT-12857 Venipuncture Draw Fee 17:44:58 CDT CPT-50905 Cervical Min 4V - XRAY USE ONLY 09:01:40 CDT CPT-42517 Chest 2V Frontal and Lat - XRAY USE ONLY 11:06:31 CDT CPT-96131 EKG Trac and Interp - XRAY USE ONLY 11:31:43 CDT 08/26 CPT-J3420 Vitamin B12 1000mcg (Cyanocobalamin) 08:10:26 EPIC KALEIDOSCOPE ANALYST 04/12 CPT-84517 Abx/Therapy Injection 08:10:26 EPIC KALEIDOSCOPE ANALYST CPT-G0438 Initial Annual Wellness Exam 19:01:01 EPIC KALEIDOSCOPE ANALYST CPT-J3420 Vitamin B12 1000mcg (Cyanocobalamin) 16:57:46 CDT 08/14 CPT-47168 Recombivax HB Injection Suspension 5 MCG/0.5ML 08:37:50 EPIC KALEIDOSCOPE ANALYST CPT-80249 Immunization Single Admin 08:37:50 EPIC KALEIDOSCOPE ANALYST CPT-J3420 Vitamin B12 1000mcg (Cyanocobalamin) 08:32:16 EPIC KALEIDOSCOPE ANALYST 03/11 CPT-56431 Abx/Therapy Injection 08:32:16 EPIC KALEIDOSCOPE ANALYST CPT-03220 Chest 2V Frontal and Lat 11:46:38 EPIC KALEIDOSCOPE ANALYST CPT-18488 Venipuncture Draw Fee 09:12:45 EPIC KALEIDOSCOPE ANALYST CPT-J3420 Vitamin B12 1000mcg (Cyanocobalamin) 08:50:15 EPIC KALEIDOSCOPE ANALYST 02/08 CPT-30115 Abx/Therapy Injection 08:50:15 EPIC KALEIDOSCOPE ANALYST CPT-Cryo Cryotherapy 10:19:35 EPIC KALEIDOSCOPE ANALYST CPT-000 Give Appropriate Flu Vaccine 09:22:16 CDT CPT-J3420 Vitamin B12 1000mcg (Cyanocobalamin) 19:08:57 CDT 01/11 CPT-50101 Abx/Therapy Injection 19:08:57 CDT CPT-J3420 Vitamin B12 1000mcg (Cyanocobalamin) 08:19:08 CDT 12/11 CPT-40522 Abx/Therapy Injection 08:19:08 CDT CPT-J3420 Vitamin B12 1000mcg (Cyanocobalamin) 14:48:00 CDT 11/09 CPT-01506 Abx/Therapy Injection 14:47:59 CDT CPT-J3420 Vitamin B12 1000mcg (Cyanocobalamin) 08:34:04 CDT 10/09 CPT-72550 Abx/Therapy Injection 08:34:04 CDT CPT-J3420 Vitamin B12 1000mcg (Cyanocobalamin) 09:18:52 CDT 09/11 CPT-02045 Abx/Therapy Injection 09:18:52 CDT CPT-J3420 Vitamin B12 1000mcg (Cyanocobalamin) 08:35:44 CDT 09/04 CPT-85452 Abx/Therapy Injection 08:35:44 CDT CPT-44551 Immunization Single Admin 11:07:16 CDT CPT-24279 Hepatitis B adult IM 11:07:16 CDT CPT-J3420 Vitamin B12 1000mcg (Cyanocobalamin) 11:00:49 CDT 08/28 CPT-J1040 Depo Medrol 80 mg (Methyl Prednisolone Acetate) 11:00: 49 CDT CPT-99078 Abx/Therapy Injection 11:00:49 CDT CPT-J1040 Depo Medrol 80 mg (Methyl Prednisolone Acetate) 09:16: 23 CDT CPT-J3420 Vitamin B12 1000mcg (Cyanocobalamin) 08:27:05 CDT 08/20 CPT-00099 Abx/Therapy Injection 08:27:05 CDT CPT-18125 Recombivax HB Injection Suspension 5 MCG/0.5ML 10:00:41 CDT CPT-49542 Administration single or combination vaccine inc oral 10 :00:41 CDT CPT-85714 Sono transvag pelvis non OB uterus ovaries cervix 16:36: 57 CDT CPT-77815 LS spine comp w obliq 09:50:55 EPIC KALEIDOSCOPE ANALYST CPT-19910 Abd compl w upright 09:50:55 EPIC KALEIDOSCOPE ANALYST CPT-J1100 Decadron 4mg (Dexamethasone) 15:51:24 EPIC KALEIDOSCOPE ANALYST CPT-J1030 Depo Medrol 40 mg (Methyl Prednisolone Acetate) 15:51: 24 EPIC KALEIDOSCOPE ANALYST CPT-36491 Abx/Therapy Injection 15:51:24 EPIC KALEIDOSCOPE ANALYST CPT-J1100 Decadron 4mg (Dexamethasone) 15:26:33 EPIC KALEIDOSCOPE ANALYST CPT-J1030 Depo Medrol 40 mg (Methyl Prednisolone Acetate) 15:26: 33 EPIC KALEIDOSCOPE ANALYST CPT-43051 Sono retroperitoneal complete kidneys and bladder 17:15: 30 CDT CPT-34488 Abd compl w upright 16:09:25 CDT CPT-J1100 Decadron 8mg (Dexamethasone) 17:07:57 CDT CPT-93026 Abx/Therapy Injection 17:07:57 CDT CPT-J1100 Decadron 8mg (Dexamethasone) 16:55:24 CDT CPT-96965 Chest 2V Frontal and Lat 16:32:44 CDT
--- OUTSIDE RECORDS SUMMARY | 2016-11-04 14:55 | XMS REPORT | Clinical Summary ---
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 Suzan Boo [...] MD Health screening ICD-V70.0 Inactive Suzan Boo PRODUCTION WELDER Sinus tachycardia ICD-427.89 Inactive Suzan Boo PRODUCTION WELDER Smoker/tobacco use disorder-smoking cessation discussed ICD-305.1 Inactive [...] Provider Patient Instruction TESSALON PERLES 100 MG CAPS 1 three times a day as needed for cough BENZONATATE [id number] No Longer Active Suzan Boo APRN Active BACTRIM DS 800-160 MG TABS 1 twice a day SULFAMETHOXAZOLE-TRIMETHOPRIM 42630123813 No Longer Active Suzan Boo APRN Active DIFLUCAN 150 MG TABS 1 by mouth for yeast FLUCONAZOLE 52455205050 No Longer Active Suzan Boo APRN Active EQ NICOTINE 21 MG/24HR TRANS PT24 Apply daily to stop smoking NICOTINE 26277809859 No Longer Active Suzan Boo APRN Active PREDNISONE 10 MG TABS 2 daily for 5 days then 1 daily for 5 days PREDNISONE 84164855554 No Longer Active Suzan Boo APRN Active LEVAQUIN 500 MG TABS 1 daily for infection LEVOFLOXACIN 06604962107 No Longer Active Suzan Boo APRN Active TROPICAMIDE 0.5 % OPHTH SOLN 1 drop PRN eye spasms TROPICAMIDE 87886298361 No Longer Active Suzan Boo APRN Active PREDNISONE 20 MG TAB 1 tablet daily x 4 days PREDNISONE 85834620252 No Longer Active Suzan Boo APRN Active ACETAMINOPHEN-CODEINE 120-12 MG/5ML SOLN 5 ml by mouth every 4-6 hours if needed for cough ACETAMINOPHEN-CODEINE 78230390071 No Longer Active Suzan Boo APRN Active KEFLEX 500 MG CAP 1 po qid CEPHALEXIN 52942573388 No Longer Active Suzan Boo APRN Active FLOVENT HFA 110 MCG/ACT AERO 2 puffs inhaled b.i.d. FLUTICASONE PROPIONATE HFA 82122966787 Active Renzo Thornton DO Active RISPERDAL 4 MG ORAL TABS 1 tab at bedtime RISPERIDONE 22385824329 Active Samantha Rothman RMA Active ZOFRAN 4 MG TABS 1 po q6hr PRN Nausea ONDANSETRON HCL No Longer Active Suzan Boo APRN Active FLUTICASONE PROPIONATE 50 MCG/ACT SUSP 2 sprays each nostril daily before bed. FLUTICASONE PROPIONATE 11361095305 No Longer Active Suzan Boo APRN Active ASPIRIN 325 MG ORAL TABS 1 tab q.d ASPIRIN 16126363569 No Longer Active Suzan Boo APRN Active HALOPERIDOL 10 MG ORAL TABS 1 tab q.d HALOPERIDOL 56609803791 No Longer Active Suzan Boo APRN Active GUAIFENESIN-CODEINE 100-10 MG/5ML SYRP 5ml every 4 to 6 hours as needed for cough GUAIFENESIN-CODEINE 44518391390 No Longer Active Suzan Boo APRN Active ZITHROMAX Z-EARNEST 250 MG TABS 2 today and then 1 daily for 4 days AZITHROMYCIN 03905403162 No Longer Active Suzan Boo APRN Active CLONAZEPAM 1 MG ORAL TABS 1 twice a day and an additional 1 tablet every other day as needed for pseudoseizures or anxiety CLONAZEPAM 53045584201 Active Ahmet Carbajal MD Active HYDROCODONE-ACETAMINOPHEN 5-325 MG ORAL TABS 1 tab two times a day HYDROCODONE-ACETAMINOPHEN 35397087176 No Longer Active Ahmet Carbajal MD Active LAMICTAL 100 MG ORAL TABS 1 tab 2 times qd. LAMOTRIGINE 07578024224 Active Ahmet Carbajal MD Active PREDNISONE 20 MG TABS 2 daily for 5 days then 1 daily for 5 days PREDNISONE 45691739435 No Longer Active Ahmet Carbajal MD Active FLUTICASONE PROPIONATE 50 MCG/ACT SUSP 1 to 2 sprays each nostril daily for allergies FLUTICASONE PROPIONATE 48894202317 Active Tila Valenzuela Active BENADRYL 25 MG CAP 4 po at bedtime for insomnia DIPHENHYDRAMINE HCL 18274811467 No Longer Active Ahmet Carbajal MD Active ADVAIR DISKUS 250-50 MCG/DOSE INH AEPB 1 puff twice a day for asthma FLUTICASONE-SALMETEROL 10597358799 No Longer Active Ahmet Carbajal MD Active KLONOPIN 1 MG ORAL TABS 1 tab po TID CLONAZEPAM 43583820951 No Longer Active Ahmet Carbajal MD Active ABILIFY MAINTENA 400 MG IM SUSR 400mg injection every 26 days ARIPIPRAZOLE 37454547436 No Longer Active Ahmet Carbajal MD Active TRAMADOL HCL 50 MG TABS 1/2-1 tab TID PRN TRAMADOL HCL 44534562752 No Longer Active Ahmet Carbajal MD Active BACTRIM DS 800-160 MG TABS 1 twice a day SULFAMETHOXAZOLE- TRIMETHOPRIM 94577228045 No Longer Active Ahmet Carbajal MD Active PROAIR HFA 108 (90 BASE) MCG/ACT AERS 2 puffs four times a day as needed 2015 ALBUTEROL SULFATE 74511606718 Active Ahmet Carbajal MD Active MONISTAT 7 COMBO PACK WOODROW 100 & 2 MG-% (9GM) VAG KIT 1 applicatorful per vagina q pm x 7 MICONAZOLE NITRATE 00607698974 No Longer Active Ahmet Carbajal MD Active FLAGYL 500 MG TAB 1 tablet by mouth bid METRONIDAZOLE 16923009091 No Longer Active Ahmet Carbajal MD Active OXYCODONE HCL ER 10 MG ORAL T12A 1/2 tab by mouth every 4 hours prn OXYCODONE HCL 52286259328 No Longer Active Ahmet aCrbajal MD Active METHYLPREDNISOLONE 4 MG ORAL TABS po daily METHYLPREDNISOLONE 81699633586 No Longer Active Ahmet Carbajal MD Active LEVOFLOXACIN 500 MG ORAL TABS po daily LEVOFLOXACIN 76651991329 No Longer Active Ahmet Carbajal MD Active VIIBRYD 10 MG ORAL TABS Take 1 tablet once a day VILAZODONE HCL 19350797981 No Longer Active Ahmet Carbajal MD Active TOPAMAX 50 MG ORAL TABS 1 tab twice daily TOPIRAMATE 86589440383 No Longer Active Ahmet Carbajal MD Active DICLOFENAC SODIUM 50 MG TBEC 1 tablet by mouth four times daily PRN Pain 2015 DICLOFENAC SODIUM 97315306158 No Longer Active Ahmet Carbajal MD Active ADZENYS XR-ODT 6.3 MG ORAL TBED 1 tab po daily for ADHD AMPHETAMINE 39861238718 No Longer Active Ahmet Carbajal MD Active CHANTIX 1 MG TABS 1 twice a day to help quit smoking VARENICLINE TARTRATE 97642905086 No Longer Active Dipika Burgos MD Active CHANTIX STARTING MONTH EARNEST 0.5 MG X 11 & 1 MG X 42 TABS take as directed 2015 VARENICLINE TARTRATE 80830615525 No Longer Active Dipika Burgos MD Active TESSALON PERLES 100 MG CAP 1 to 2 tablets by mouth 3 times daily as needed for cough BENZONATATE 67000303852 No Longer Active Luigi Martíenz APRN Active IMITREX 50 MG ORAL TABS 0.5 po x 1 PRN Headache. May repeat dose x 1 in 2 hours if needed SUMATRIPTAN SUCCINATE 31838779451 Active Ahmet Carbajal MD Active HYDROCODONE-ACETAMINOPHEN 5-325 MG TABS 1 to 2 four times a day as needed for pain use until can be seen by specialist HYDROCODONE- ACETAMINOPHEN 05551700901 No Longer Active Vishal Hui MD Active PROAIR HFA 108 (90 BASE) MCG/ACT AERS 2 puffs four times a day as needed 2015 ALBUTEROL SULFATE 91962000573 No Longer Active Vishal Hui MD Active PREDNISONE 20 MG TABS 2 daily for 5 days then 1 daily for 5 days PREDNISONE 79580528802 No Longer Active Vishal Hui MD Active ZITHROMAX Z-EARNEST 250 MG TABS 2 today and then 1 daily for 4 days AZITHROMYCIN 58745329608 No Longer Active Vishal Hui MD Active DICLOFENAC POTASSIUM TABS Take 1 tablet twice a day (pt. is not sure of the dose.) DICLOFENAC POTASSIUM TABS 38962731554 No Longer Active Vishal Hui MD Active VERAPAMIL HCL ER 120 MG ORAL CR-TABS Take 1 tablet by mouth twice a day. VERAPAMIL HCL 11554377809 Active Vishal Hui MD Active FLAGYL 500 MG TAB 1 tablet by mouth bid METRONIDAZOLE 74966821753 No Longer Active Vishal Hui MD Active VALIUM 5 MG TAB Take 1-2 tablets daily DIAZEPAM 20407111759 No Longer Active Fabiola Johnson APRN Active METOPROLOL TARTRATE 25 MG ORAL TABS 1/2 tablet twice daily for heart rate and blood pressure METOPROLOL TARTRATE 19688102628 No Longer Active Fabiola Johnson APRN Active MIRALAX ORAL POWD 17GMS DAILY IN WATER POLYETHYLENE GLYCOL 3350 40556499640 Active TAMARA Casey Active MIRALAX PACK 1 po qd PRN Constipation POLYETHYLENE GLYCOL 3350 31129256893 No Longer Active Ahmet Carbajal MD Active MINIPRESS 2 MG CAPS 4 cap po at night PRAZOSIN HCL 56818166338 No Longer Active Ahmet Carbajal MD Active PIROXICAM 20 MG CAPS 1 cap po qd PRN Pain PIROXICAM 09413882394 No Longer Active Ahmet Carbajal MD Active TRAMADOL HCL 50 MG TABS 1-2 po TID PRN Pain TRAMADOL HCL 45645407529 No Longer Active Ahmet Carbajal MD Active METOPROLOL TARTRATE 50 MG TAB 1 po bid METOPROLOL TARTRATE 39277300844 No Longer Active Ahmet Carbajal MD Active ABILIFY 15 MG ORAL TABS 1 tab daily ARIPIPRAZOLE 62153391154 No Longer Active Ahmet Carbajal MD Active PROZAC 20 MG ORAL CAPS 1 tab daily FLUOXETINE HCL 64946434695 No Longer Active Ahmet Carbajal MD Active AMBIEN 5 MG ORAL TABS 1 tab at bedtime ZOLPIDEM TARTRATE 72586703245 No Longer Active Ahmet Carbajal MD Active PREDNISONE 20 MG TAB 2 tabs daily for 4 days, 1 tab daily for 4 days, 1/2 tab daily for 4 days PREDNISONE 50315115257 No Longer Active Ahmet Carbajal MD Active KEFLEX 500 MG CAP 1 po TID x 10 days CEPHALEXIN 41740793984 No Longer Active Vishal Hui MD Active SAPHRIS 5 MG SUBL 1 po bid ASENAPINE MALEATE 44656769917 No Longer Active Luigi Martínez APRN Active LATUDA 80 MG TABS Take one by mouth daily LURASIDONE HCL 27201985327 No Longer Active Pacolljanee Martínez PRODUCTION WELDER Active AMLODIPINE BESYLATE 5 MG TABS 1 tablet by mouth daily AMLODIPINE BESYLATE 22707597156 No Longer Active Luigi Martínez APRN Active AMITRIPTYLINE HCL 100 MG TAB one at hs AMITRIPTYLINE HCL 54479791186 No Longer Active Vishal Hui MD Active TRAZODONE HCL 100 MG TAB take 1 at bedtime TRAZODONE HCL 73811095564 No Longer Active Vishal Hui MD Active VYVANSE 40 MG CAPS 1 daily, LISDEXAMFETAMINE DIMESYLATE 49284081874 No Longer Active Vishal Hui MD Active IBUPROFEN 600 MG TAB 1 po TID PRN IBUPROFEN 51341526124 No Longer Active Vishal Hui MD Active PROZAC 20 MG CAP Take one by mouth daily FLUOXETINE HCL 24476210450 No Longer Active Vishal Hui MD Active BACTRIM DS 800-160 MG TABS 1 pill by mouth twice daily SULFAMETHOXAZOLE-TRIMETHOPRIM 81577237881 No Longer Active Sahara Rodriguez MD PhD Active DIFLUCAN 150 MG TAB 1 tablet by mouth daily FLUCONAZOLE 84044878846 No Longer Active Vishal Hui MD Active TIZANIDINE HCL 4 MG TABS 1 po q6hr PRN Muscle Spasm/Back Pain TIZANIDINE HCL 14301950046 Active Vishal Hui MD Active CLINDAMYCIN HCL 150 MG CAPS 1 four times a day CLINDAMYCIN HCL 20313056589 No Longer Active Neeraj Collins MD Active KEFLEX 500 MG ORAL CAPS 1 cap QID by mouth CEPHALEXIN 61975977246 No Longer Active Neeraj Collins MD Active DIFLUCAN 150 MG TABS 1 pill every other day x 2 doses FLUCONAZOLE 73182006128 No Longer Active Sahara Rodriguez MD PhD Active MELATONIN 3 MG CAPS 2 po q hs MELATONIN 05976446565 No Longer Active Sahara Rodriguez MD PhD Active MULTIVITAMINS CAPS Take one by mouth daily MULTIPLE VITAMIN 14049579208 No Longer Active Sahara Rodriguez MD PhD Active BACTRIM DS 800-160 MG TAB 1 tab by mouth twice daily TRIMETHOPRIM-SULFAMETHOXAZOLE 99719922535 No Longer Active Sahara Rodriguez MD PhD Active [facility] PROBIOTIC ORAL CHEW 2 daily po PROBIOTIC PRODUCT 44030325724 No Longer Active Sahara Rodriguez MD PhD Active BACTRIM DS 800-160 MG TABS 1 po BID x 7 days SULFAMETHOXAZOLE-TRIMETHOPRIM 53764945898 No Longer Active Vishal Hui MD Active CHANTIX STARTING MONTH EARNEST 0.5 MG X 11 & 1 MG X 42 TABS 0.5mg daily for 3 days , then 0.5mg BID for 4 days, then 1mg BID VARENICLINE TARTRATE 09883075112 No Longer Active TAMARA Gray Active VERAPAMIL HCL CR 120 MG TAB CR 1 po bid VERAPAMIL HCL 82023686318 No Longer Active Vishal Hui MD Active METOPROLOL SUCCINATE 50 MG TB24 1 tablet by mouth daily METOPROLOL SUCCINATE 27960080316 No Longer Active Vishal Hui MD Active SAPHRIS 10 MG SUBL 1 tab po bid ASENAPINE MALEATE 26183971914 No Longer Active Vishal Hui MD Active LISINOPRIL 20 MG TABS 1 tab po qd LISINOPRIL 79417798477 No Longer Active Vishal Hui MD Active LATUDA 20 MG TABS Take one by mouth daily LURASIDONE HCL 36116031950 No Longer Active Vishal Hui MD Active TRAZODONE HCL 50 MG TABS 1/2 tab po qd prn for anxiety TRAZODONE HCL 01462123835 No Longer Active Vishal Hui MD Active OMEPRAZOLE 20 MG TBEC 1 po q a.m. 30min prior to first food intake OMEPRAZOLE 35968912488 Active TAMARA Casey Active RANITIDINE HCL 150 MG CAPS 1 twice a day RANITIDINE HCL 29145416961 Active Jioral Martínez PRODUCTION WELDER Active LINZESS 290 MCG CAPS Take one by mouth daily LINACLOTIDE 25763453032 No Longer Active Vishal Hui MD Active SAPHRIS 5 MG SUBL 1 tab po qd ASENAPINE MALEATE 69481958992 No Longer Active Vishal Hui MD Active ZALEPLON 10 MG CAPS 1 cap po every other night ZALEPLON 50269042068 No Longer Active Vishal Hui MD Active LYRICA 50 MG CAPS 1 tab po TID PREGABALIN 08123736352 No Longer Active Vishal Hui MD Active LORATADINE 10 MG TABS 1 tab po qd LORATADINE 40438519064 No Longer Active Vishal Hui MD Active VERAPAMIL HCL ER 180 MG CR-TABS 1 tab po bid VERAPAMIL HCL 05738338576 No Longer Active Vishal Hui MD Active MIRALAX POWD 1 capfull once daily POLYETHYLENE GLYCOL 3350 51935470207 No Longer Active Vishal Hui MD Active PREDNISONE 20 MG TABS 1 tab po qd PREDNISONE 06152292853 No Longer Active Renzo Thornton DO Active LEVOFLOXACIN 500 MG TABS 1 tab po qd LEVOFLOXACIN 23441302667 No Longer Active Renzo Thornton DO Active BUSPIRONE HCL 15 MG TABS 1 tab po TID BUSPIRONE HCL 29270731462 No Longer Active Renzo Thornton DO Active BENZTROPINE MESYLATE 1 MG TABS 1 tab po qd BENZTROPINE MESYLATE 46122427169 No Longer Active Renzo Thornton DO Active ATENOLOL 25 MG TABS 1 tab po qd ATENOLOL 26730458292 No Longer Active Renzo Thornton DO Active ESCITALOPRAM OXALATE 20 MG TABS 1 tab po qd ESCITALOPRAM OXALATE 78126248831 No Longer Active Renzo Thornton DO Active ADVAIR DISKUS 250-50 MCG/DOSE AEPB 1 puff BID FLUTICASONE-SALMETEROL 65214357333 No Longer Active Renzo Thornton DO Active PREDNISONE 20 MG TAB 2 tabs daily for 3 days, 1 tab daily for 3 days, 1/2 tab daily for 2 days PREDNISONE 58023683008 No Longer Active Vishal Hui MD Active CEFDINIR 300 MG CAPS by mouth twice a day CEFDINIR 95484013763 No Longer Active Vishal Hui MD Active LANSOPRAZOLE 30 MG CPDR 1 cap po qd LANSOPRAZOLE 03501880930 No Longer Active Vishal Hui MD Active BACLOFEN 20 MG TABS 1 tab po tid BACLOFEN 83809076199 No Longer Active Vishal Hui MD Active ADVAIR DISKUS 250-50 MCG/DOSE AEPB 1 puff BID ADVAIR DISKUS 250-50 MCG/DOSE AEPB FLUTICASONE-SALMETEROL Inactive ESCITALOPRAM OXALATE 20 MG TABS 1 tab po qd ESCITALOPRAM OXALATE 20 MG TABS 347919 ESCITALOPRAM OXALATE Inactive ATENOLOL 25 MG TABS 1 tab po qd ATENOLOL 25 MG TABS 451864 ATENOLOL Inactive BENZTROPINE MESYLATE 1 MG TABS 1 tab po qd BENZTROPINE MESYLATE 1 MG TABS 465639 BENZTROPINE MESYLATE Inactive BUSPIRONE HCL 15 MG TABS 1 tab po TID BUSPIRONE HCL 15 MG TABS 444901 BUSPIRONE HCL Inactive LEVOFLOXACIN 500 MG TABS 1 tab po qd LEVOFLOXACIN 500 MG TABS 805941 LEVOFLOXACIN Inactive PREDNISONE 20 MG TABS 1 tab po qd PREDNISONE 20 MG TABS 549856 PREDNISONE Inactive MIRALAX POWD 1 capfull once daily MIRALAX POWD 001053 POLYETHYLENE GLYCOL 3350 Inactive VERAPAMIL HCL ER 180 MG CR-TABS 1 tab po bid VERAPAMIL HCL ER 180 MG CR-TABS VERAPAMIL HCL Inactive LORATADINE 10 MG TABS 1 tab po qd LORATADINE 10 MG TABS 151064 LORATADINE Inactive LYRICA 50 MG CAPS 1 tab po TID LYRICA 50 MG CAPS PREGABALIN Inactive ZALEPLON 10 MG CAPS 1 cap po every other night ZALEPLON 10 MG CAPS 020070 ZALEPLON Inactive SAPHRIS 5 MG SUBL 1 tab po qd SAPHRIS 5 MG SUBL ASENAPINE MALEATE Inactive TRAZODONE HCL 50 MG TABS 1/2 tab po qd prn for anxiety TRAZODONE HCL 50 MG TABS 336500 TRAZODONE HCL Inactive LATUDA 20 MG TABS Take one by mouth daily LATUDA 20 MG TABS LURASIDONE HCL Inactive LISINOPRIL 20 MG TABS 1 tab po qd LISINOPRIL 20 MG TABS 214696 LISINOPRIL Inactive SAPHRIS 10 MG SUBL 1 [...] twice daily BACTRIM DS 800-160 MG TAB 313673 TRIMETHOPRIM-SULFAMETHOXAZOLE Inactive MULTIVITAMINS CAPS Take one by mouth daily MULTIVITAMINS CAPS MULTIPLE VITAMIN Inactive MELATONIN 3 MG CAPS 2 po q hs MELATONIN 3 MG CAPS 443824 MELATONIN Inactive KEFLEX 500 MG ORAL CAPS 1 cap QID by mouth KEFLEX 500 MG ORAL CAPS 266499 CEPHALEXIN Inactive CLINDAMYCIN HCL 150 MG CAPS 1 four times a day CLINDAMYCIN HCL 150 MG CAPS 116542 CLINDAMYCIN HCL Inactive DIFLUCAN 150 MG TAB 1 tablet by mouth daily DIFLUCAN 150 MG TAB 231041 FLUCONAZOLE Inactive PROZAC 20 MG CAP Take one by mouth daily PROZAC 20 MG CAP 125992 FLUOXETINE HCL Inactive IBUPROFEN 600 MG TAB 1 po TID PRN IBUPROFEN 600 MG TAB 274918 IBUPROFEN Inactive VYVANSE 40 MG CAPS 1 daily, VYVANSE 40 MG CAPS LISDEXAMFETAMINE DIMESYLATE Inactive TRAZODONE HCL 100 MG TAB take 1 at bedtime TRAZODONE HCL 100 MG TAB 858647 TRAZODONE HCL Inactive AMITRIPTYLINE HCL 100 MG TAB one at hs AMITRIPTYLINE HCL 100 MG TAB 735385 AMITRIPTYLINE HCL Inactive AMLODIPINE BESYLATE 5 MG TABS 1 tablet by mouth daily AMLODIPINE BESYLATE 5 MG TABS 944300 AMLODIPINE BESYLATE Inactive LATUDA 80 MG TABS Take one by mouth daily LATUDA 80 MG TABS LURASIDONE HCL Inactive SAPHRIS 5 MG SUBL 1 po bid SAPHRIS 5 MG SUBL ASENAPINE MALEATE Inactive PREDNISONE 20 MG TAB 2 tabs daily for 4 days, 1 tab daily for 4 days, 1/2 tab daily for 4 days PREDNISONE 20 MG TAB 836253 PREDNISONE Inactive AMBIEN 5 MG ORAL TABS 1 tab at bedtime AMBIEN 5 MG ORAL TABS 293544 ZOLPIDEM TARTRATE Inactive PROZAC 20 MG ORAL CAPS 1 tab daily PROZAC 20 MG ORAL CAPS 915433 FLUOXETINE HCL Inactive ABILIFY 15 MG ORAL TABS 1 tab daily ABILIFY 15 MG ORAL TABS 749320 ARIPIPRAZOLE Inactive METOPROLOL TARTRATE 50 MG TAB 1 po bid METOPROLOL TARTRATE 50 MG TAB 512544 METOPROLOL TARTRATE Inactive TRAMADOL HCL 50 MG TABS 1-2 po TID PRN Pain TRAMADOL HCL 50 MG TABS 561346 TRAMADOL HCL Inactive PIROXICAM 20 MG CAPS 1 cap po qd PRN Pain PIROXICAM 20 MG CAPS 045401 PIROXICAM Inactive MINIPRESS 2 MG CAPS 4 cap po at night MINIPRESS 2 MG CAPS 679086 PRAZOSIN HCL Inactive MIRALAX PACK 1 po qd PRN Constipation MIRALAX PACK 206436 POLYETHYLENE GLYCOL 3350 Inactive METOPROLOL TARTRATE 25 MG ORAL TABS 1/2 tablet twice daily for heart rate and blood pressure METOPROLOL TARTRATE 25 MG ORAL TABS 453247 METOPROLOL TARTRATE Inactive VALIUM 5 MG TAB Take 1-2 tablets daily VALIUM 5 MG TAB 123227 DIAZEPAM Inactive FLAGYL 500 MG TAB 1 tablet by mouth bid FLAGYL 500 MG TAB 625703 METRONIDAZOLE Inactive DICLOFENAC POTASSIUM TABS Take 1 tablet twice a day (pt. is not sure of the dose.) DICLOFENAC POTASSIUM TABS DICLOFENAC POTASSIUM TABS Inactive ZITHROMAX Z-EARNEST 250 MG TABS 2 today and then 1 daily for 4 days ZITHROMAX Z-EARNEST 250 MG TABS 0164666 AZITHROMYCIN Inactive PREDNISONE 20 MG TABS 2 daily for 5 days then 1 daily for 5 days PREDNISONE 20 MG TABS 525301 PREDNISONE Inactive PROAIR HFA 108 (90 BASE) MCG/ACT AERS 2 puffs four times a day as needed 2015 PROAIR HFA 108 (90 BASE) MCG/ACT AERS ALBUTEROL SULFATE Inactive HYDROCODONE-ACETAMINOPHEN 5-325 MG TABS 1 to 2 four times a day as needed for pain use until can be seen by specialist HYDROCODONE- ACETAMINOPHEN 5-325 MG TABS 054113 HYDROCODONE-ACETAMINOPHEN Inactive TESSALON PERLES 100 MG CAP 1 to 2 tablets by mouth 3 times daily as needed for cough TESSALON PERLES 100 MG CAP 939345 BENZONATATE Inactive CHANTIX STARTING MONTH EARNEST 0.5 [...] Pain 2015 DICLOFENAC SODIUM 50 MG TBEC 506847 DICLOFENAC SODIUM Inactive TOPAMAX 50 MG ORAL TABS 1 tab twice daily TOPAMAX 50 MG ORAL TABS 862234 TOPIRAMATE Inactive VIIBRYD 10 MG ORAL TABS Take 1 tablet once a day VIIBRYD 10 MG ORAL TABS VILAZODONE HCL Inactive LEVOFLOXACIN 500 MG ORAL TABS po daily LEVOFLOXACIN 500 MG ORAL TABS 759480 LEVOFLOXACIN Inactive METHYLPREDNISOLONE 4 MG ORAL TABS po daily METHYLPREDNISOLONE 4 MG ORAL TABS 538818 METHYLPREDNISOLONE Inactive OXYCODONE HCL ER 10 MG ORAL T12A 1/2 tab by mouth every 4 hours prn OXYCODONE HCL ER 10 MG ORAL T12A OXYCODONE HCL Inactive FLAGYL 500 MG TAB 1 tablet by mouth bid FLAGYL 500 MG TAB 043873 METRONIDAZOLE Inactive MONISTAT 7 COMBO PACK WOODROW 100 & 2 MG-% (9GM) VAG KIT 1 applicatorful per vagina q pm x 7 MONISTAT 7 COMBO PACK WOODROW 100 & 2 MG-% (9GM) VAG KIT MICONAZOLE NITRATE Inactive BACTRIM DS 800-160 MG TABS 1 twice a day BACTRIM DS 800-160 MG TABS 958649 SULFAMETHOXAZOLE-TRIMETHOPRIM Inactive TRAMADOL HCL 50 MG TABS 1/2-1 tab TID PRN TRAMADOL HCL 50 MG TABS 640942 TRAMADOL HCL Inactive ABILIFY MAINTENA 400 MG IM SUSR 400mg injection every 26 days ABILIFY MAINTENA 400 MG IM SUSR ARIPIPRAZOLE Inactive KLONOPIN 1 MG ORAL TABS 1 tab po TID KLONOPIN 1 MG ORAL TABS 942022 CLONAZEPAM Inactive ADVAIR DISKUS 250-50 MCG/DOSE INH AEPB 1 puff twice a day for asthma ADVAIR DISKUS 250-50 MCG/DOSE INH AEPB FLUTICASONE- SALMETEROL Inactive BENADRYL 25 MG CAP 4 po at bedtime for insomnia BENADRYL 25 MG CAP DIPHENHYDRAMINE HCL Inactive PREDNISONE 20 MG TABS 2 daily for 5 days then 1 daily for 5 days PREDNISONE 20 MG TABS 231494 PREDNISONE Inactive HYDROCODONE-ACETAMINOPHEN 5-325 MG ORAL TABS 1 tab two times a day HYDROCODONE-ACETAMINOPHEN 5-325 MG ORAL TABS 899567 HYDROCODONE-ACETAMINOPHEN Inactive ZITHROMAX Z-EARNEST 250 MG TABS 2 today and then 1 daily for 4 days ZITHROMAX Z-EARNEST 250 MG TABS 6372466 AZITHROMYCIN Inactive GUAIFENESIN-CODEINE 100-10 MG/5ML SYRP 5ml every 4 to 6 hours as needed for cough GUAIFENESIN-CODEINE 100-10 MG/5ML SYRP 706375 GUAIFENESIN-CODEINE Inactive HALOPERIDOL 10 MG ORAL TABS 1 tab q.d HALOPERIDOL 10 MG ORAL TABS 374512 HALOPERIDOL Inactive ASPIRIN 325 MG ORAL TABS 1 tab q.d ASPIRIN 325 MG ORAL TABS 361679 ASPIRIN Inactive FLUTICASONE PROPIONATE 50 MCG/ACT SUSP 2 sprays each nostril daily before bed. FLUTICASONE PROPIONATE 50 MCG/ACT SUSP 2125081 FLUTICASONE PROPIONATE Inactive ZOFRAN 4 MG TABS 1 po q6hr PRN Nausea ZOFRAN 4 MG TABS 528270 ONDANSETRON HCL Inactive KEFLEX 500 MG CAP 1 po qid KEFLEX 500 MG CAP 566353 CEPHALEXIN Inactive ACETAMINOPHEN-CODEINE 120-12 MG/5ML SOLN 5 ml by mouth every 4-6 hours if needed for cough ACETAMINOPHEN-CODEINE 120-12 MG/5ML SOLN 237811 ACETAMINOPHEN-CODEINE Inactive PREDNISONE 20 MG TAB 1 tablet daily x 4 days PREDNISONE 20 MG TAB 653729 PREDNISONE Inactive TROPICAMIDE 0.5 % OPHTH SOLN 1 drop PRN eye spasms TROPICAMIDE 0.5 % OPHTH SOLN 804748 TROPICAMIDE Inactive LEVAQUIN 500 MG TABS 1 daily for infection LEVAQUIN 500 MG TABS 19971021 LEVOFLOXACIN Inactive PREDNISONE 10 MG TABS 2 daily for 5 days then 1 daily for 5 days PREDNISONE 10 MG TABS 19800621 PREDNISONE Inactive EQ NICOTINE 21 MG/24HR TRANS [...] twice a day CEFDINIR 300 MG CAPS 543444 CEFDINIR Inactive PREDNISONE 20 MG TAB 2 tabs daily for 3 days, 1 tab daily for 3 days, 1/2 tab daily for 2 days PREDNISONE 20 MG TAB 479846 PREDNISONE Inactive BACTRIM DS 800-160 MG TABS [...] x 10 days KEFLEX 500 MG CAP 292298 CEPHALEXIN Inactive Advance Directives Directive Description Start [...] pressure, diastolic - 8462-4 99 mm[Hg] BP mcanlly blood pressure, systolic - 8480-6 153 mm[Hg] [...] % 11.0-15.0 platelet count 443 THOUSAND/UL 10*3/mm3 124-370 5827/03/01 mean platelet volume 8.2 fL 7.5-12.5 Lab [...] 369 10^3/MM^3 10*3/mm3 142-424 Lab Report: Chlamydia/GC APTIMA/[id number] - Lab chlamydia DNA probe NOT DETECTED NOT DETECTED Lab Report: Chlamydia/GC APTIMA/[id number] - Microbiology Neisseria gonorrhoeae DNA probe NOT DETECTED NOT DETECTED Lab Report: Chlamydia/GC APTIMA/[id number], Urinalysis, Complete, with Reflex ... - Lab chlamydia DNA probe NOT DETECTED NOT DETECTED Lab Report: Chlamydia/GC APTIMA/[id number], Urinalysis, Complete, with Reflex ... - Microbiology Neisseria gonorrhoeae DNA probe NOT DETECTED NOT DETECTED Lab Report: Chlamydia/GC APTIMA/[id number], Urinalysis, Complete, with Reflex ... - Urinalysis microalbumin/total urine volume 2 mg/L Units converted. See lab report for original value. microalbumin/creatinine ratio, urine 9 MCG/MG CREAT mg/L <30 Lab Report: Comp. Metabolic Panel - Chemistry sodium, serum 142 mmol/L 424-029 6692/06/08 carbon dioxide, venous blood 27.6 mmol/L 21.0-32.0 potassium, serum 4.0 mmol/L 3.5-5.2 chloride, serum 105 mmol/L 98-107 blood glucose 95 mg/dL 65-110 urea nitrogen, blood 8 mg/dL 7-18 creatinine, serum 0.75 mg/dL 0.55-1.30 alanine aminotransferase (SGPT), serum 49 U/L -78 aspartate aminotransferase (SGOT), serum 28 U/L 15-37 calcium, serum 9.4 mg/dL 8.5-10.1 bilirubin, serum, total 0.30 mg/dL 0.00-1.00 sodium, serum 140 mmol/L [phone]/08/08 carbon dioxide, venous blood 33.7 mmol/L 21.0-32.0 [...] mg/dL Encounters Code Encounter Date Provider Facility [id number] Level 3 Est. Patient 10:00:25 CDT Suzan Boo [facility] CPT-93309 Level 3 Est. Patient 10:29:30 CDT Suzan Boo [facility] CPT-35103 Level 3 Est. Patient 11:04:38 CDT [facility] Thornton DO [facility] CPT-24772 Level 3 Est. Patient 11:15:58 SIGNAL REPAIRER Renzo Thornton DO [facility] CPT-45405 Level 3 Est. Patient 15:28:23 SIGNAL REPAIRER Suzan Boo [facility] CPT-11860 Level 4 Est. Patient 10:20:54 SIGNAL REPAIRER Suzan Boo [facility] CPT-58898 Level 3 Est. Patient 11:47:37 SIGNAL REPAIRER Ahmet Carbajal MD [facility] CPT-43680 Level 3 Est. Patient 10:40:11 SIGNAL REPAIRER Ahmet Carbajal MD [facility] CPT-16935 Level 3 Est. Patient 15:07:06 SIGNAL REPAIRER Neeraj Collins MD [facility] CPT-21938 Level 4 Est. Patient 14:45:00 SIGNAL REPAIRER Ahmet Carbajal MD [facility] CPT-50674 Level 3 Est. Patient 13:59:59 CDT Luigi Martínez [facility] CPT-19249 Level 3 Est. Patient 18:18:53 CDT Neeraj Collins MD [facility] CPT-32369 Level 3 Est. Patient 15:50:44 CDT Vishal Hui MD [facility] CPT-29182 Level 3 Est. Patient 11:36:17 CDT Ahmet Carbajal MD [facility] CPT-17341 Level 3 Est. Patient 13:29:16 CDT Vishal Hui MD [facility] CPT-50538 Level 3 Est. Patient 14:27:52 CDT Neeraj Collins MD [facility] CPT-56617 Level 3 Est. Patient 08:56:03 CDT Luigi Martínez [facility] CPT-06914 Level 4 Est. Patient 12:11:48 CDT Fabiola Johnson [facility] CPT-55475 Level 3 New Patient 16:53:37 CDT Albert Caldera MD [facility] CPT-80787 Level 3 Est. Patient 11:25:49 CDT Renzo Thornton [facility] CPT-47270 Level 3 Est. Patient 15:22:01 CDT Ahmet Carbajal MD [facility]-85490 Level 4 Est. Patient 09:00:51 SIGNAL REPAIRER Vishal Hui MD [facility] CPT-65300 Level 3 Est. Patient 11:37:33 SIGNAL REPAIRER Vishal Hui MD [facility] CPT-13393 Level 3 Est. Patient 08:41:09 SIGNAL REPAIRER Vishal Hui MD [facility] CPT-26553 Level 4 Est. Patient 10:19:35 SIGNAL REPAIRER Vishal Hui MD [facility] CPT-53086 Level 3 Est. Patient 13:35:45 CDT Vishal Hui MD [facility] CPT-42091 Level 4 Est. Patient 10:08:37 CDT Vishal Hui MD [facility] CPT-00889 Level 3 Est. Patient 11:22:10 CDT Vishal Hui MD [facility] CPT-22061 Level 3 Est. Patient 11:03:32 CDT Sahara Rodriguez MD [facility] CPT-86273 Level 3 Est. Patient 09:41:35 CDT Vishal Hui MD [facility]-98396 Level 3 Est. Patient 12:00:41 CDT Neeraj Collins MD [facility] CPT-23042 Level 3 Est. Patient 09:16:24 CDT Vishal Hui MD [facility] CPT-80860 Level 4 Est. Patient 13:59:09 CDT Neeraj Collins MD [facility] CPT-10649 Level 3 Est. Patient 15:19:43 CDT Renzo Thornton [facility] CPT-53954 Level 3 Est. Patient 18:10:26 CDT Sahara Rodriguez MD PhD [facility] CPT-60215 Level 3 Est. Patient 14:49:50 CDT Vishal Hui MD [facility] CPT-61448 Level 4 Est. Patient 18:41:46 CDT Neeraj Collins MD [facility] CPT-49660 Level 4 Est. Patient 09:18:38 SIGNAL REPAIRER Vishal Hui MD [facility] CPT-76106 Level 3 Est. Patient 14:43:55 SIGNAL REPAIRER Vishal Hui MD [facility] CPT-89127 Level 3 Est. Patient 15:26:33 SIGNAL REPAIRER Sahara Rodriguez MD PhD [facility] CPT-07461 Level 3 Est. Patient 10:32:14 SIGNAL REPAIRER Vishal Hui MD [facility] CPT-32013 Level 3 Est. Patient 15:12:52 SIGNAL REPAIRER Vishal Hui MD [facility] CPT-52999 Level 4 Est. Patient 09:19:27 CDT Vishal Hui MD [facility] CPT-59942 Level 3 Est. Patient 15:53:00 CDT Renzo Thornton [facility] CPT-98960 Level 3 Est. Patient 15:50:30 CDT Renzo Thornton [facility] CPT-58660 Level 3 Est. Patient 16:55:24 CDT Vishal Hui MD [facility] Procedures Code Procedure Name Date Entry Date Standard Description CPT-48137 Abd compl w upright - XRAY USE ONLY 10:27:59 CDT 06/28 CPT-84572 Smoking Cessation counseling 11:15:58 SIGNAL REPAIRER CPT-G0439 [facility] Annual Wellness Exam 09:30:58 SIGNAL REPAIRER CPT-66278 TSH - LAB USE ONLY 08:50:26 SIGNAL REPAIRER CPT-13370 CBC - LAB USE ONLY 08:50:26 SIGNAL REPAIRER CPT-57618 Venipuncture Draw Fee 08:50:26 SIGNAL REPAIRER CPT-60857 Abx/Therapy Injection 17:34:30 SIGNAL REPAIRER CPT-41188 Nexplanon Removal with Reinsertion 14:09:32 CDT CPT-J7307 Nexplanon (Implant) 14:09:32 CDT CPT-OV Office Visit 14:09:32 CDT CPT-59265 UA w micro - LAB USE ONLY 16:21:13 CDT CPT-05065 Wet Mount - LAB USE ONLY 16:21:13 CDT CPT-99964 First Vx - Ix admin for Medicare patients 14:37:47 CDT CPT-42506 Fluzone Preservative Free Intramuscular Suspension 14:37 :47 CDT CPT-22090 Abx/Therapy Injection 13:54:22 CDT CPT-03994 Abx/Therapy Injection 08:47:09 CDT CPT-02756 Abx/Therapy Injection 13:29:56 CDT CPT-60638 Abx/Therapy Injection 08:36:16 CDT CPT-73541 Wet Mount - LAB USE ONLY 17:44:58 CDT CPT-18186 UA w micro - LAB USE ONLY 17:44:58 CDT CPT-15621 CMP - LAB USE ONLY 17:44:58 CDT CPT-48491 Venipuncture Draw Fee 17:44:58 CDT CPT-18504 Cervical Min 4V - XRAY USE ONLY 09:01:40 CDT CPT-82312 Chest 2V Frontal and Lat - XRAY USE ONLY 11:06:31 CDT CPT-91101 EKG Trac and Interp - XRAY USE ONLY 11:31:43 CDT 08/26 CPT-J3420 Vitamin B12 1000mcg (Cyanocobalamin) 08:10:26 SIGNAL REPAIRER 04/12 CPT-45037 Abx/Therapy Injection 08:10:26 SIGNAL REPAIRER CPT-G0438 Initial Annual Wellness Exam 19:01:01 SIGNAL REPAIRER CPT-J3420 Vitamin B12 1000mcg (Cyanocobalamin) 16:57:46 CDT 08/14 CPT-28020 Recombivax HB Injection Suspension 5 MCG/0.5ML 08:37:50 SIGNAL REPAIRER CPT-11748 Immunization Single Admin 08:37:50 SIGNAL REPAIRER CPT-J3420 Vitamin B12 1000mcg (Cyanocobalamin) 08:32:16 SIGNAL REPAIRER 03/11 CPT-68458 Abx/Therapy Injection 08:32:16 SIGNAL REPAIRER CPT-92860 Chest 2V Frontal and Lat 11:46:38 SIGNAL REPAIRER CPT-47904 Venipuncture Draw Fee 09:12:45 SIGNAL REPAIRER CPT-J3420 Vitamin B12 1000mcg (Cyanocobalamin) 08:50:15 SIGNAL REPAIRER 02/08 CPT-55556 Abx/Therapy Injection 08:50:15 SIGNAL REPAIRER CPT-Cryo Cryotherapy 10:19:35 SIGNAL REPAIRER CPT-000 Give Appropriate Flu Vaccine 09:22:16 CDT CPT-J3420 Vitamin B12 1000mcg (Cyanocobalamin) 19:08:57 CDT 01/11 CPT-45498 Abx/Therapy Injection 19:08:57 CDT CPT-J3420 Vitamin B12 1000mcg (Cyanocobalamin) 08:19:08 CDT 12/11 CPT-86091 Abx/Therapy Injection 08:19:08 CDT CPT-J3420 Vitamin B12 1000mcg (Cyanocobalamin) 14:48:00 CDT 11/09 CPT-16797 Abx/Therapy Injection 14:47:59 CDT CPT-J3420 Vitamin B12 1000mcg (Cyanocobalamin) 08:34:04 CDT 10/09 CPT-53935 Abx/Therapy Injection 08:34:04 CDT CPT-J3420 Vitamin B12 1000mcg (Cyanocobalamin) 09:18:52 CDT 09/11 CPT-29014 Abx/Therapy Injection 09:18:52 CDT CPT-J3420 Vitamin B12 1000mcg (Cyanocobalamin) 08:35:44 CDT 09/04 CPT-14977 Abx/Therapy Injection 08:35:44 CDT CPT-73414 Immunization Single Admin 11:07:16 CDT CPT-45096 Hepatitis B adult IM 11:07:16 CDT CPT-J3420 Vitamin B12 1000mcg (Cyanocobalamin) 11:00:49 CDT 08/28 CPT-J1040 Depo Medrol 80 mg (Methyl Prednisolone Acetate) 11:00: 49 CDT CPT-63358 Abx/Therapy Injection 11:00:49 CDT CPT-J1040 Depo Medrol 80 mg (Methyl Prednisolone Acetate) 09:16: 23 CDT CPT-J3420 Vitamin B12 1000mcg (Cyanocobalamin) 08:27:05 CDT 08/20 CPT-32549 Abx/Therapy Injection 08:27:05 CDT CPT-62493 Recombivax HB Injection Suspension 5 MCG/0.5ML 10:00:41 CDT CPT-35904 Administration single or combination vaccine inc oral 10 :00:41 CDT CPT-94731 Sono transvag pelvis non OB uterus ovaries cervix 16:36: 57 CDT CPT-60513 LS spine comp w obliq 09:50:55 SIGNAL REPAIRER CPT-20072 Abd compl w upright 09:50:55 SIGNAL REPAIRER CPT-J1100 Decadron 4mg (Dexamethasone) 15:51:24 SIGNAL REPAIRER CPT-J1030 Depo Medrol 40 mg (Methyl Prednisolone Acetate) 15:51: 24 SIGNAL REPAIRER CPT-48288 Abx/Therapy Injection 15:51:24 SIGNAL REPAIRER CPT-J1100 Decadron 4mg (Dexamethasone) 15:26:33 SIGNAL REPAIRER CPT-J1030 Depo Medrol 40 mg (Methyl Prednisolone Acetate) 15:26: 33 SIGNAL REPAIRER CPT-81955 Sono retroperitoneal complete kidneys and bladder 17:15: 30 CDT CPT-99570 Abd compl w upright 16:09:25 CDT CPT-J1100 Decadron 8mg (Dexamethasone) 17:07:57 CDT CPT-23024 Abx/Therapy Injection 17:07:57 CDT CPT-J1100 Decadron 8mg (Dexamethasone) 16:55:24 CDT CPT-52177 Chest 2V Frontal and Lat 16:32:44 CDT
--- OUTSIDE RECORDS SUMMARY | 2016-11-04 14:55 | XMS REPORT ---
Author [facility] Medical Staff Organization [facility] [employer] [facility] Address [address] [place], [place] [address] Phone [phone] Care Team Providers Care Can Reforming Machine Operator Name Role Phone VISHAL ABRAMS MD PP [phone] Summary purpose TRANSITION OF CARE AUTO GENERATION Chief Complaint and Reason for Visit Admit Diagnosis 1 LUMBAGO Problem list No authorized problems tracked for [...] tests and/or laboratory data RESULTS Radiology Results [id number]:12:00 MRI L-SPINE W/WO CONT PACs Image DATE OF EXAM: Aug 31 2014 MRI 0077-MRI L SPINE W/WO CONTRAST : RADIOLOGY REPORT DATE OF SERVICE: 08/31/14 HISTORY: Severe back pain and bilateral lower extremity pain and spasms. PRE AND POSTCONTRAST MAGNETIC RESONANCE IMAGING LUMBAR [id number] HOURS Pre and postcontrast imaging of the lumbar spine was performed in the sagittal and axial planes. 15 mL Magnevist was administered for enhancement. The lumbar vertebrae are normal in height and alignment. There has been prior anterior fusion with fusion cages and screws at L4-L5 and L5-S1. Alignment at this level is anatomical without operative complication. There is no unusual enhancement. There is a mild chronic appearing anterior compression deformity of T12 with slight loss of height anteriorly. The posterior vertebral body height is well maintained. Degenerative osteophyte formation is present at T11-T12 anteriorly. The T12-L1 and L1-L2 disc levels, canal, foramina, facets, and nerve roots are normal. At L2-L3, there is a moderate sized central and right paracentral disc herniation with extrusion. There is slight cephalad migration of disc material along the posterior aspect of L2. There is no bony canal stenosis. The foramina and nerve roots are normal. At L3-L4, there is mild degenerative disc narrowing and desiccation and a small posterior central disc protrusion is present without nerve root effacement. There is no canal stenosis. There is mild degenerative facet arthrosis. The foramina are normal. At L4-L5 and L5-S1, the fusions appear satisfactory. There is no canal stenosis or foraminal narrowing. No nerve root abnormality is present. IMPRESSION: 1. Central and right paracentral disc herniation at L2-L3 with some cephalad extrusion of disc material along the posterior aspect of L2. 2. Small central posterior disc protrusion at L3-L4. 3. Satisfactory appearance of the anterior fusion of L4-L5 and L5-S1. 4. Chronic anterior compression deformity of T12. Fredy Tadeo MD MWWilian/nh08/31/2014 12:11:00 / 08/31/2014 13:02:35 cc:Dr. Vishal Abrams This document has been electronically Signed by: On: DATE OF EXAM: Aug 31 2014 MRI 0077-MRI L SPINE W/WO CONTRAST : RADIOLOGY REPORT DATE OF SERVICE: 08/31/14 HISTORY: Severe back pain and bilateral lower extremity pain and spasms. PRE AND POSTCONTRAST MAGNETIC RESONANCE IMAGING LUMBAR [id number] HOURS Pre and postcontrast imaging of the lumbar spine was performed in the sagittal and axial planes. 15 mL Magnevist was administered for enhancement. The lumbar vertebrae are normal in height and alignment. There has been prior anterior fusion with fusion cages and screws at L4-L5 and L5-S1. Alignment at this level is anatomical without operative complication. There is no unusual enhancement. There is a mild chronic appearing anterior compression deformity of T12 with slight loss of height anteriorly. The posterior vertebral body height is well maintained. Degenerative osteophyte formation is present at T11-T12 anteriorly. The T12-L1 and L1-L2 disc levels, canal, foramina, facets, and nerve roots are normal. At L2-L3, there is a moderate sized central and right paracentral disc herniation with extrusion. There is slight cephalad migration of disc material along the posterior aspect of L2. There is no bony canal stenosis. The foramina and nerve roots are normal. At L3-L4, there is mild degenerative disc narrowing and desiccation and a small posterior central disc protrusion is present without nerve root effacement. There is no canal stenosis. There is mild degenerative facet arthrosis. The foramina are normal. At L4-L5 and L5-S1, the fusions appear satisfactory. There is no canal stenosis or foraminal narrowing. No nerve root abnormality is present. IMPRESSION: 1. Central and right paracentral disc herniation at L2-L3 with some cephalad extrusion of disc material along the posterior aspect of L2. 2. Small central posterior disc protrusion at L3-L4. 3. Satisfactory appearance of the anterior fusion of L4-L5 and L5-S1. 4. Chronic anterior compression deformity of T12. Fredy Tadeo MD MWD/nh08/31/2014 12:11:00 / 08/31/2014 13:02:35 cc:Dr. Vishal Abrams This document has been electronically Signed by: FREDY TADEO On: Aug 31 20142:12P Result Amended on 2014-08-31 at 14:12:07. Previous status was [place]. History of procedures Procedure Code Code Type Description Date Performed Performing Physician [id number] CPT-4 MRI LUMBAR SPINE W/O & W/DYE 08-31-2014 VISHAL ABRAMS [id number] CPT-4 CHRISTINA-BASE MR CONTRAST NOS,1ML 08-31-2014 VISHAL ABRAMS Functional status No functional or cognitive status [...]
--- OUTSIDE RECORDS SUMMARY | 2016-11-04 14:55 | XMS REPORT ---
Author Author [facility] Medical Staff Organization 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 MD SOLEDAD Mays/murtaza07/21/2015 11:42:00 / 07/21/2015 11:58:18 cc:Olga Patel APRN This document has been electronically Signed [...] other significant thoracic spine abnormality. MD SOLEDAD Mays/murtaza07/21/2015 11:42:00 / 07/21/2015 11:58:18 cc:Olga Patel APRN This document has been electronically Signed by: ELAN MAHAN MD On: 20153:37P Result Amended on 2015-07-21 at 15:37:18. Previous status was [place]. History of procedures Procedure Code Code Type Description Date Performed Performing Physician [id number] CPT-4 X-RAY EXAM OF THORACIC SPINE 07-21-2015 OLGA PATEL Functional status No functional or cognitive status [...]
--- OUTSIDE RECORDS SUMMARY | 2016-11-04 14:58 | XMS REPORT ---
Author Author [facility] Medical Staff Organization [facility] Address [address] [place], [place] [address] Phone [phone] Care Team Providers Care Jigsaw Operator Name Role Phone DENICE OCHOA MD PP [phone] Summary purpose TRANSITION OF CARE AUTO GENERATION [...] tests and/or laboratory data RESULTS Routine Urinalysis 25-31-666512:50:00 Result Normal Range Units Color YELLOW Clarity Cloudy Specific [place] 1.010 1.003-1.035 pH 7.0 4.5-8.0 Glucose NEGATIVE Bilirubin NEGATIVE Ketones NEGATIVE Protein NEGATIVE Urobilinogen 0.2 0-0.2 E.U./dL Nitrites NEGATIVE Blood NEGATIVE Leukocytes TRACE WBCs 0-5 RBCs 0-5 Squamous Epithelial 4+ Bacteria 3+ Yeast 1+ Chemistry :07:00 Result Normal Range Units Sodium 140 134-145 mEq/l Potassium 4.0 3.5-5.1 mEq/l Chloride 107 98-107 mEq/l CO2 24.6 22-28 mEq/l Glucose H 119 70-105 mg/dl BUN 8 7-18 mg/dl Creatinine 0.69 0.6-1.0 mg/dl Calcium 8.9 8.4-10.2 mg/dl TP - Total Protein 6.6 6.0-8.3 g/dl Albumin L 3.4 3.5-5 g/dl Bilirubin - Total 0.2 0.1-1.0 mg/dl AST 37 10-42 IU/L ALT 61 12-65 IU/L ALP H 95 25-72 IU/L Osmolality L 278.9 280-300 mOsm/L Albumin/Globulin Ratio 1.1 0-8 Anion GAP 8.4 8-16 BUN/Creatinine Ratio 11.6 10-20 Estimated GFR 101 >=60 mL/min/1.7 Hematology :07:00 Result Normal Range Units WBC 8.3 4.8-10.8 103/uL RBC 4.5 4.2-5.4 106/uL HGB 14.1 12.0-16.0 g/dl HCT 41.7 36.9-47.0 % MCV 92.1 81-99 FL MCH H 31.1 27-31 pg MCHC 33.8 33-37 g/dl RDW 11.9 11.5-15.5 % PLT 330 130-400 103/uL MPV 10.3 7.3-10.4 FL Neutro % 57.1 40-70 % Lymph % 30.8 20-40 % [place] % 9.8 0-10.0 % Eos % 1.7 0-7.0 % Baso % 0.4 0-2 % Neutro # 4.7 1.5-7.5 103/uL Lymph # 2.6 0.9-4.0 103/uL [place] # 0.8 0-0.8 103/uL Eos # 0.1 0-0.6 103/uL Baso # 0.0 0-0.1 103/uL Body Fluid :50:00 Result Normal Range Units pH 7.0 4.5-8.0 Radiology Results :07:00 Result Normal Range Units MPV 10.3 7.3-10.4 FL History of procedures No procedures recorded for this patient visit. Functional status Functional Status Finding Observation Time Diet regular 88-84-119808:50 Abdomen Appearance obese :50 Abdomen non-tender :50 Bowel Sounds present :50 Vick no :50 Urination normal :50 Quality sym/unlabored :50 Cough absent :50 Secretions no :50 Breath Sounds RUL clear :50 Breath Sounds RML clear :50 Breath Sounds RLL clear :50 Breath Sounds BENJA clear :50 Breath Sounds LLL clear :50 Airway natural :50 Chest Tube no :50 Oxygen no :30 Temp >100.4 no :50 Temp <96.8 no :50 Chills with rigors no :50 HR > 90bpm no :50 Respirations > 20 no :50 Systolic <90 no :50 headache stiff neck no :50 WBC > 37550 no :50 Nursing Note Pt was given home instructions at this time :44 Vital signs Type Value Date Respiration Rate 18breaths per minute : Pulse 98beats per minute :30 Oxygen Saturation 99% :30 BP Systolic 127mmHg 00-45-542943:30 BP Diastolic 66mmHg :30 Temperature 98F 47-72-952220:30 Height 65inches :14 Weight 291LB :14 Social history Type Value Smoking Status FORMER SMOKER Treatment Plan No treatment plan text is available for this visit. Hospital discharge instructions Dismissal Condition good Disposition on DC home DC Inst/Educ Give yes Flu Vac 2014
--- OUTSIDE RECORDS SUMMARY | 2016-11-04 14:58 | XMS REPORT | Clinical Summary ---
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 Suzan [...] Cervicalgia Preop exam V72.84 Active Suzan Rajeev MOLD CLOSER HELPER Preoperative examination, unspecified Anxiety Disorder ICD-300.00 Inactive Vishal Hui MD Pneumonia, organism unspecified ICD-486 Inactive Vishal Hui MD Flank pain, right ICD-789.09 Inactive Vishal Hui MD G E R D ICD-530.81 Inactive Vishal Hui MD Health screening ICD-V70.0 Inactive Suzan Boo MOLD CLOSER HELPER Sinus tachycardia ICD-427.89 Inactive Suzan Boo MOLD CLOSER HELPER Smoker/tobacco use disorder-smoking cessation discussed ICD-305.1 Inactive [...] Vishal Hui MD UTI ICD-599.0 Inactive Vishal uHi MD Headache, atypical ICD-784.0 Inactive Albert Caldera [...] twice a day for 5 days TRIMETHOPRIM-SULFAMETHOXAZOLE 19586073192 Active Samantha MCDONALD Active MUPIROCIN 2 % OINT apply twice a day MUPIROCIN 62456102051 No Longer Active Suzan Boo APRN Active BACTRIM DS 800-160 MG TABS 1 twice a day SULFAMETHOXAZOLE-TRIMETHOPRIM 40181252267 No Longer Active Suzan Boo APRN Active DIFLUCAN 150 MG TABS 1 by mouth for yeast FLUCONAZOLE 88985877744 No Longer Active Suzan Boo APRN Active AMITIZA 8 MCG ORAL CAPS 1 capsule twice daily LUBIPROSTONE 87679339992 Active Sheila Calderon LPN Active LINZESS 290 MCG ORAL CAPS 1 tab 30 min prior to first meal each day. LINACLOTIDE 31157289517 No Longer Active Sheila Calderon LPN Active AMITIZA 8 MCG ORAL CAPS 1 tab BID LUBIPROSTONE 04606196895 No Longer Active Lynda Xiao LPN Active LACTULOSE 10 GM/15ML ORAL SOLN 30mL oral BID for IBS-C LACTULOSE 96229098860 Active Suzan Boo APRN Active TESSALON PERLES 100 MG CAPS 1 three times a day as needed for cough BENZONATATE 74020565340 No Longer Active Suzan Boo APRN Active BACTRIM DS 800-160 MG TABS 1 twice a day SULFAMETHOXAZOLE-TRIMETHOPRIM 51212666758 No Longer Active Suzan Boo APRN Active DIFLUCAN 150 MG TABS 1 by mouth for yeast FLUCONAZOLE 41551203745 No Longer Active Suzan Boo APRN Active EQ NICOTINE 21 MG/24HR TRANS PT24 Apply daily to stop smoking NICOTINE 52242152744 No Longer Active Suzan Boo APRN Active PREDNISONE 10 MG TABS 2 daily for 5 days then 1 daily for 5 days PREDNISONE 43474316317 No Longer Active Suzan Boo APRN Active LEVAQUIN 500 MG TABS 1 daily for infection LEVOFLOXACIN 25463046809 No Longer Active Suzan Boo APRN Active TROPICAMIDE 0.5 % OPHTH SOLN 1 drop PRN eye spasms TROPICAMIDE 00992988936 No Longer Active Suzan Boo APRN Active PREDNISONE 20 MG TAB 1 tablet daily x 4 days PREDNISONE 25934296035 No Longer Active Suzan Boo APRN Active ACETAMINOPHEN-CODEINE 120-12 MG/5ML SOLN 5 ml by mouth every 4-6 hours if needed for cough ACETAMINOPHEN-CODEINE 22005691986 No Longer Active Suzan Boo APRN Active KEFLEX 500 MG CAP 1 po qid CEPHALEXIN 80759496501 No Longer Active Suzan Boo APRN Active FLOVENT HFA 110 MCG/ACT AERO 2 puffs inhaled b.i.d. FLUTICASONE PROPIONATE HFA 76044690123 Active Renzo Thornton DO Active RISPERDAL 4 MG ORAL TABS 1 tab at bedtime RISPERIDONE 74396233989 Active Samantha MCDONALD Active ZOFRAN 4 MG TABS 1 po q6hr PRN Nausea ONDANSETRON HCL No Longer Active Suzan Boo APRN Active FLUTICASONE PROPIONATE 50 MCG/ACT SUSP 2 sprays each nostril daily before bed. FLUTICASONE PROPIONATE 54557195693 No Longer Active Suzan Boo APRN Active ASPIRIN 325 MG ORAL TABS 1 tab q.d ASPIRIN 49291523718 No Longer Active Suzan Boo APRN Active HALOPERIDOL 10 MG ORAL TABS 1 tab q.d HALOPERIDOL 71784410052 No Longer Active Suzan Boo APRN Active GUAIFENESIN-CODEINE 100-10 MG/5ML SYRP 5ml every 4 to 6 hours as needed for cough GUAIFENESIN-CODEINE 97435747375 No Longer Active Suzan Boo APRN Active ZITHROMAX Z-EARNEST 250 MG TABS 2 today and then 1 daily for 4 days AZITHROMYCIN 98873643767 No Longer Active Suzan Boo APRN Active CLONAZEPAM 1 MG ORAL TABS 1 twice a day and an additional 1 tablet every other day as needed for pseudoseizures or anxiety CLONAZEPAM 14689841200 Active Suzan Boo APRN Active HYDROCODONE-ACETAMINOPHEN 5-325 MG ORAL TABS 1 tab two times a day HYDROCODONE-ACETAMINOPHEN 72622746744 No Longer Active Ahmet Carbajal MD Active LAMICTAL 100 MG ORAL TABS 1 tab 2 times qd. LAMOTRIGINE 05469035657 Active Ahmet Carbajal MD Active PREDNISONE 20 MG TABS 2 daily for 5 days then 1 daily for 5 days PREDNISONE 63425505572 No Longer Active Ahmet Carbajal MD Active FLUTICASONE PROPIONATE 50 MCG/ACT SUSP 1 to 2 sprays each nostril daily for allergies FLUTICASONE PROPIONATE 91469241023 Active Tila Valenzuela Active BENADRYL 25 MG CAP 4 po at bedtime for insomnia DIPHENHYDRAMINE HCL 38698027082 No Longer Active Ahmet Carbajal MD Active ADVAIR DISKUS 250-50 MCG/DOSE INH AEPB 1 puff twice a day for asthma FLUTICASONE-SALMETEROL 90431835415 No Longer Active Ahmet Carbajal MD Active KLONOPIN 1 MG ORAL TABS 1 tab po TID CLONAZEPAM 41820732075 No Longer Active Ahmet Carbajal MD Active ABILIFY MAINTENA 400 MG IM SUSR 400mg injection every 26 days ARIPIPRAZOLE 26818639042 No Longer Active Ahmet Carbajal MD Active TRAMADOL HCL 50 MG TABS 1/2-1 tab TID PRN TRAMADOL HCL 79548251747 No Longer Active Ahmet Carbajal MD Active BACTRIM DS 800-160 MG TABS 1 twice a day SULFAMETHOXAZOLE- TRIMETHOPRIM 97111296291 No Longer Active Ahmet Carbajal MD Active PROAIR HFA 108 (90 BASE) MCG/ACT AERS 2 puffs four times a day as needed 2015 ALBUTEROL SULFATE 58681858877 Active Honey Hinton MOLD CLOSER HELPER Active MONISTAT 7 COMBO PACK WOODROW 100 & 2 MG-% (9GM) VAG KIT 1 applicatorful per vagina q pm x 7 MICONAZOLE NITRATE 13342683243 No Longer Active Ahmet Carbajal MD Active FLAGYL 500 MG TAB 1 tablet by mouth bid METRONIDAZOLE 88014954635 No Longer Active Ahmet Carbajal MD Active OXYCODONE HCL ER 10 MG ORAL T12A 1/2 tab by mouth every 4 hours prn OXYCODONE HCL 78674684276 No Longer Active Ahmet Carbajal MD Active METHYLPREDNISOLONE 4 MG ORAL TABS po daily METHYLPREDNISOLONE 36192168350 No Longer Active Ahmet Carbajal MD Active LEVOFLOXACIN 500 MG ORAL TABS po daily LEVOFLOXACIN 44068683879 No Longer Active Ahmet Carbajal MD Active VIIBRYD 10 MG ORAL TABS Take 1 tablet once a day VILAZODONE HCL 69801016061 No Longer Active Ahmet Carbajal MD Active TOPAMAX 50 MG ORAL TABS 1 tab twice daily TOPIRAMATE 39816336106 No Longer Active Ahmet Carbajal MD Active DICLOFENAC SODIUM 50 MG TBEC 1 tablet by mouth four times daily PRN Pain 2015 DICLOFENAC SODIUM 95261403719 No Longer Active Ahmet Carbajal MD Active ADZENYS XR-ODT 6.3 MG ORAL TBED 1 tab po daily for ADHD AMPHETAMINE 59691790071 No Longer Active Ahmet Carbajal MD Active CHANTIX 1 MG TABS 1 twice a day to help quit smoking VARENICLINE TARTRATE 84817198244 No Longer Active Dipika Burgos MD Active CHANTIX STARTING MONTH EARNEST 0.5 MG X 11 & 1 MG X 42 TABS take as directed 2015 VARENICLINE TARTRATE 65635555699 No Longer Active Dipika Burgos MD Active TESSALON PERLES 100 MG CAP 1 to 2 tablets by mouth 3 times daily as needed for cough BENZONATATE 74794643623 No Longer Active Luigi Martínez APRN Active IMITREX 50 MG ORAL TABS 0.5 po x 1 PRN Headache. May repeat dose x 1 in 2 hours if needed SUMATRIPTAN SUCCINATE 06475860153 Active Ahmet Carbajal MD Active HYDROCODONE-ACETAMINOPHEN 5-325 MG TABS 1 to 2 four times a day as needed for pain use until can be seen by specialist HYDROCODONE- ACETAMINOPHEN 56611688017 No Longer Active Vishal Hui MD Active PROAIR HFA 108 (90 BASE) MCG/ACT AERS 2 puffs four times a day as needed 2015 ALBUTEROL SULFATE 62569540148 No Longer Active Vishal Hui MD Active PREDNISONE 20 MG TABS 2 daily for 5 days then 1 daily for 5 days PREDNISONE 65681853783 No Longer Active Vishal Hui MD Active ZITHROMAX Z-EARNEST 250 MG TABS 2 today and then 1 daily for 4 days AZITHROMYCIN 61873305608 No Longer Active Vishal Hui MD Active DICLOFENAC POTASSIUM TABS Take 1 tablet twice a day (pt. is not sure of the dose.) DICLOFENAC POTASSIUM TABS 40664204931 No Longer Active Vishal Hui MD Active VERAPAMIL HCL ER 120 MG ORAL CR-TABS Take 1 tablet by mouth twice a day. VERAPAMIL HCL 75106540872 Active Vishal Hui MD Active FLAGYL 500 MG TAB 1 tablet by mouth bid METRONIDAZOLE 00669851059 No Longer Active Vishal Hui MD Active VALIUM 5 MG TAB Take 1-2 tablets daily DIAZEPAM 47900630656 No Longer Active Fabiola Johnson APRN Active METOPROLOL TARTRATE 25 MG ORAL TABS 1/2 tablet twice daily for heart rate and blood pressure METOPROLOL TARTRATE 34357488016 No Longer Active Fabiola Johnson APRN Active MIRALAX ORAL POWD 17GMS DAILY IN WATER POLYETHYLENE GLYCOL 3350 57763772247 Active TAMARA Casey Active MIRALAX PACK 1 po qd PRN Constipation POLYETHYLENE GLYCOL 3350 79659807722 No Longer Active Ahmet Carbajal MD Active MINIPRESS 2 MG CAPS 4 cap po at night PRAZOSIN HCL 17641490186 No Longer Active Ahmet Carbajal MD Active PIROXICAM 20 MG CAPS 1 cap po qd PRN Pain PIROXICAM 45070473769 No Longer Active Ahmet Carbajal MD Active TRAMADOL HCL 50 MG TABS 1-2 po TID PRN Pain TRAMADOL HCL 50297538521 No Longer Active Ahmet Carbajal MD Active METOPROLOL TARTRATE 50 MG TAB 1 po bid METOPROLOL TARTRATE 60796513998 No Longer Active Ahmet Carbajal MD Active ABILIFY 15 MG ORAL TABS 1 tab daily ARIPIPRAZOLE 97721439720 No Longer Active Ahmet Carbajal MD Active PROZAC 20 MG ORAL CAPS 1 tab daily FLUOXETINE HCL 78825912600 No Longer Active Ahmet Carbajal MD Active AMBIEN 5 MG ORAL TABS 1 tab at bedtime ZOLPIDEM TARTRATE 50167958146 No Longer Active Ahmet Carbajal MD Active PREDNISONE 20 MG TAB 2 tabs daily for 4 days, 1 tab daily for 4 days, 1/2 tab daily for 4 days PREDNISONE 74122878540 No Longer Active Ahmet Carbajal MD Active KEFLEX 500 MG CAP 1 po TID x 10 days CEPHALEXIN 23062831016 No Longer Active Vishal Hui MD Active SAPHRIS 5 MG SUBL 1 po bid ASENAPINE MALEATE 91268388481 No Longer Active Luigi Martínez APRN Active LATUDA 80 MG TABS Take one by mouth daily LURASIDONE HCL 40294290958 No Longer Active Luigi Martínez APRN Active AMLODIPINE BESYLATE 5 MG TABS 1 tablet by mouth daily AMLODIPINE BESYLATE 29833581803 No Longer Active uLigi Martínez APRN Active AMITRIPTYLINE HCL 100 MG TAB one at hs AMITRIPTYLINE HCL 29495654952 No Longer Active Vishal Hui MD Active TRAZODONE HCL 100 MG TAB take 1 at bedtime TRAZODONE HCL 59053101161 No Longer Active Vishal Hui MD Active VYVANSE 40 MG CAPS 1 daily, LISDEXAMFETAMINE DIMESYLATE 65637941944 No Longer Active Vishal Hui MD Active IBUPROFEN 600 MG TAB 1 po TID PRN IBUPROFEN 94017595198 No Longer Active Vishal Hui MD Active PROZAC 20 MG CAP Take one by mouth daily FLUOXETINE HCL 27768240995 No Longer Active Vishal Hui MD Active BACTRIM DS 800-160 MG TABS 1 pill by mouth twice daily SULFAMETHOXAZOLE-TRIMETHOPRIM 19081091732 No Longer Active Sahara Rodriguez MD PhD Active DIFLUCAN 150 MG TAB 1 tablet by mouth daily FLUCONAZOLE 26368838996 No Longer Active Vishal Hui MD Active TIZANIDINE HCL 4 MG TABS 1 po q6hr PRN Muscle Spasm/Back Pain TIZANIDINE HCL 57233333478 Active TAMARA Casey Active CLINDAMYCIN HCL 150 MG CAPS 1 four times a day CLINDAMYCIN HCL 08528387960 No Longer Active Neeraj Collins MD Active KEFLEX 500 MG ORAL CAPS 1 cap QID by mouth CEPHALEXIN 50088370857 No Longer Active Neeraj Collins MD Active DIFLUCAN 150 MG TABS 1 pill every other day x 2 doses FLUCONAZOLE 79494375786 No Longer Active Sahara Rodriguez MD PhD Active MELATONIN 3 MG CAPS 2 po q hs MELATONIN 67446775865 No Longer Active Sahara Rodriguez MD PhD Active MULTIVITAMINS CAPS Take one by mouth daily MULTIPLE VITAMIN 92329167630 No Longer Active Sahara Rodriguez MD PhD Active BACTRIM DS 800-160 MG TAB 1 tab by mouth twice daily TRIMETHOPRIM-SULFAMETHOXAZOLE 92454543116 No Longer Active Sahara Rodriguez MD PhD Active [facility] PROBIOTIC ORAL CHEW 2 daily po PROBIOTIC PRODUCT 45582669952 No Longer Active Sahara Rodriguez MD PhD Active BACTRIM DS 800-160 MG TABS 1 po BID x 7 days SULFAMETHOXAZOLE-TRIMETHOPRIM 72229981175 No Longer Active Vishal Hui MD Active CHANTIX STARTING MONTH EARNEST 0.5 MG X 11 & 1 MG X 42 TABS 0.5mg daily for 3 days , then 0.5mg BID for 4 days, then 1mg BID VARENICLINE TARTRATE 32981477850 No Longer Active TAMARA Gray Active VERAPAMIL HCL CR 120 MG TAB CR 1 po bid VERAPAMIL HCL 66858595046 No Longer Active Vishal Hui MD Active METOPROLOL SUCCINATE 50 MG TB24 1 tablet by mouth daily METOPROLOL SUCCINATE 68560920198 No Longer Active Vishal Hui MD Active SAPHRIS 10 MG SUBL 1 tab po bid ASENAPINE MALEATE 20896376344 No Longer Active Vishal Hui MD Active LISINOPRIL 20 MG TABS 1 tab po qd LISINOPRIL 23748548639 No Longer Active Vishal Hui MD Active LATUDA 20 MG TABS Take one by mouth daily LURASIDONE HCL 46122952038 No Longer Active Vishal Hui MD Active TRAZODONE HCL 50 MG TABS 1/2 tab po qd prn for anxiety TRAZODONE HCL 31666818996 No Longer Active Vishal Hui MD Active OMEPRAZOLE 20 MG TBEC 1 po q a.m. 30min prior to first food intake OMEPRAZOLE 18585025483 Active TAMARA Casey Active RANITIDINE HCL 150 MG CAPS 1 twice a day RANITIDINE HCL 76314877347 Active Lynda Xiao RENEWABLE ENERGY BROKER Active LINZESS 290 MCG CAPS Take one by mouth daily LINACLOTIDE 26383398963 No Longer Active Vishal Hui MD Active SAPHRIS 5 MG SUBL 1 tab po qd ASENAPINE MALEATE 64367435547 No Longer Active Vishal Hui MD Active ZALEPLON 10 MG CAPS 1 cap po every other night ZALEPLON 12651268398 No Longer Active Vishal Hui MD Active LYRICA 50 MG CAPS 1 tab po TID PREGABALIN 88840749662 No Longer Active Vishal Hui MD Active LORATADINE 10 MG TABS 1 tab po qd LORATADINE 90696404517 No Longer Active Vishal Hui MD Active VERAPAMIL HCL ER 180 MG CR-TABS 1 tab po bid VERAPAMIL HCL 10638720912 No Longer Active Vishal Hui MD Active MIRALAX POWD 1 capfull once daily POLYETHYLENE GLYCOL 3350 75840358174 No Longer Active Vishal Hui MD Active PREDNISONE 20 MG TABS 1 tab po qd PREDNISONE 84449512447 No Longer Active Renzo Thornton DO Active LEVOFLOXACIN 500 MG TABS 1 tab po qd LEVOFLOXACIN 71430976345 No Longer Active Renzo Thornton DO Active BUSPIRONE HCL 15 MG TABS 1 tab po TID BUSPIRONE HCL 60589140381 No Longer Active Renzo Thornton DO Active BENZTROPINE MESYLATE 1 MG TABS 1 tab po qd BENZTROPINE MESYLATE 92489145782 No Longer Active Renzo Thornton DO Active ATENOLOL 25 MG TABS 1 tab po qd ATENOLOL 11779725560 No Longer Active Renzo Thornton DO Active ESCITALOPRAM OXALATE 20 MG TABS 1 tab po qd ESCITALOPRAM OXALATE 49044173541 No Longer Active Renzo Thornton DO Active ADVAIR DISKUS 250-50 MCG/DOSE AEPB 1 puff BID FLUTICASONE-SALMETEROL 80404325150 No Longer Active Renzo Thornton DO Active PREDNISONE 20 MG TAB 2 tabs daily for 3 days, 1 tab daily for 3 days, 1/2 tab daily for 2 days PREDNISONE 87037470098 No Longer Active Vishal Hui MD Active CEFDINIR 300 MG CAPS by mouth twice a day CEFDINIR 63090633696 No Longer Active Vishal Hui MD Active LANSOPRAZOLE 30 MG CPDR 1 cap po qd LANSOPRAZOLE 15047743763 No Longer Active Vishal Hui MD Active BACLOFEN 20 MG TABS 1 tab po tid BACLOFEN 37738634410 No Longer Active Vishal Hui MD Active ADVAIR DISKUS 250-50 MCG/DOSE AEPB 1 puff BID ADVAIR DISKUS 250-50 MCG/DOSE AEPB FLUTICASONE-SALMETEROL Inactive ESCITALOPRAM OXALATE 20 MG TABS 1 tab po qd ESCITALOPRAM OXALATE 20 MG TABS 788019 ESCITALOPRAM OXALATE Inactive ATENOLOL 25 MG TABS 1 tab po qd ATENOLOL 25 MG TABS 429303 ATENOLOL Inactive BENZTROPINE MESYLATE 1 MG TABS 1 tab po qd BENZTROPINE MESYLATE 1 MG TABS 968555 BENZTROPINE MESYLATE Inactive BUSPIRONE HCL 15 MG TABS 1 tab po TID BUSPIRONE HCL 15 MG TABS 121694 BUSPIRONE HCL Inactive LEVOFLOXACIN 500 MG TABS 1 tab po qd LEVOFLOXACIN 500 MG TABS 939618 LEVOFLOXACIN Inactive PREDNISONE 20 MG TABS 1 tab po qd PREDNISONE 20 MG TABS 631412 PREDNISONE Inactive MIRALAX POWD 1 capfull once daily MIRALAX POWD 468573 POLYETHYLENE GLYCOL 3350 Inactive VERAPAMIL HCL ER 180 MG CR-TABS 1 tab po bid VERAPAMIL HCL ER 180 MG CR-TABS VERAPAMIL HCL Inactive LORATADINE 10 MG TABS 1 tab po qd LORATADINE 10 MG TABS 270424 LORATADINE Inactive LYRICA 50 MG CAPS 1 tab po TID LYRICA 50 MG CAPS PREGABALIN Inactive ZALEPLON 10 MG CAPS 1 cap po every other night ZALEPLON 10 MG CAPS 602326 ZALEPLON Inactive SAPHRIS 5 MG SUBL 1 tab po qd SAPHRIS 5 MG SUBL ASENAPINE MALEATE Inactive TRAZODONE HCL 50 MG TABS 1/2 tab po qd prn for anxiety TRAZODONE HCL 50 MG TABS 104976 TRAZODONE HCL Inactive LATUDA 20 MG TABS Take one by mouth daily LATUDA 20 MG TABS LURASIDONE HCL Inactive LISINOPRIL 20 MG TABS 1 tab po qd LISINOPRIL 20 MG TABS 989045 LISINOPRIL Inactive SAPHRIS 10 MG SUBL 1 [...] twice daily BACTRIM DS 800-160 MG TAB 355769 TRIMETHOPRIM-SULFAMETHOXAZOLE Inactive MULTIVITAMINS CAPS Take one by mouth daily MULTIVITAMINS CAPS MULTIPLE VITAMIN Inactive MELATONIN 3 MG CAPS 2 po q hs MELATONIN 3 MG CAPS 617367 MELATONIN Inactive KEFLEX 500 MG ORAL CAPS 1 cap QID by mouth KEFLEX 500 MG ORAL CAPS 789507 CEPHALEXIN Inactive CLINDAMYCIN HCL 150 MG CAPS 1 four times a day CLINDAMYCIN HCL 150 MG CAPS 227792 CLINDAMYCIN HCL Inactive DIFLUCAN 150 MG TAB 1 tablet by mouth daily DIFLUCAN 150 MG TAB 904805 FLUCONAZOLE Inactive PROZAC 20 MG CAP Take one by mouth daily PROZAC 20 MG CAP 529945 FLUOXETINE HCL Inactive IBUPROFEN 600 MG TAB 1 po TID PRN IBUPROFEN 600 MG TAB 539014 IBUPROFEN Inactive VYVANSE 40 MG CAPS 1 daily, VYVANSE 40 MG CAPS LISDEXAMFETAMINE DIMESYLATE Inactive TRAZODONE HCL 100 MG TAB take 1 at bedtime TRAZODONE HCL 100 MG TAB 604496 TRAZODONE HCL Inactive AMITRIPTYLINE HCL 100 MG TAB one at hs AMITRIPTYLINE HCL 100 MG TAB 790612 AMITRIPTYLINE HCL Inactive AMLODIPINE BESYLATE 5 MG TABS 1 tablet by mouth daily AMLODIPINE BESYLATE 5 MG TABS 933104 AMLODIPINE BESYLATE Inactive LATUDA 80 MG TABS Take one by mouth daily LATUDA 80 MG TABS LURASIDONE HCL Inactive SAPHRIS 5 MG SUBL 1 po bid SAPHRIS 5 MG SUBL ASENAPINE MALEATE Inactive PREDNISONE 20 MG TAB 2 tabs daily for 4 days, 1 tab daily for 4 days, 1/2 tab daily for 4 days PREDNISONE 20 MG TAB 526813 PREDNISONE Inactive AMBIEN 5 MG ORAL TABS 1 tab at bedtime AMBIEN 5 MG ORAL TABS 587573 ZOLPIDEM TARTRATE Inactive PROZAC 20 MG ORAL CAPS 1 tab daily PROZAC 20 MG ORAL CAPS 398341 FLUOXETINE HCL Inactive ABILIFY 15 MG ORAL TABS 1 tab daily ABILIFY 15 MG ORAL TABS 914951 ARIPIPRAZOLE Inactive METOPROLOL TARTRATE 50 MG TAB 1 po bid METOPROLOL TARTRATE 50 MG TAB 695174 METOPROLOL TARTRATE Inactive TRAMADOL HCL 50 MG TABS 1-2 po TID PRN Pain TRAMADOL HCL 50 MG TABS 517869 TRAMADOL HCL Inactive PIROXICAM 20 MG CAPS 1 cap po qd PRN Pain PIROXICAM 20 MG CAPS 091617 PIROXICAM Inactive MINIPRESS 2 MG CAPS 4 cap po at night MINIPRESS 2 MG CAPS 279395 PRAZOSIN HCL Inactive MIRALAX PACK 1 po qd PRN Constipation MIRALAX PACK 780727 POLYETHYLENE GLYCOL 3350 Inactive METOPROLOL TARTRATE 25 MG ORAL TABS 1/2 tablet twice daily for heart rate and blood pressure METOPROLOL TARTRATE 25 MG ORAL TABS 411363 METOPROLOL TARTRATE Inactive VALIUM 5 MG TAB Take 1-2 tablets daily VALIUM 5 MG TAB 703521 DIAZEPAM Inactive FLAGYL 500 MG TAB 1 tablet by mouth bid FLAGYL 500 MG TAB 969091 METRONIDAZOLE Inactive DICLOFENAC POTASSIUM TABS Take 1 tablet twice a day (pt. is not sure of the dose.) DICLOFENAC POTASSIUM TABS DICLOFENAC POTASSIUM TABS Inactive ZITHROMAX Z-EARNEST 250 MG TABS 2 today and then 1 daily for 4 days ZITHROMAX Z-EARNEST 250 MG TABS 3205252 AZITHROMYCIN Inactive PREDNISONE 20 MG TABS 2 daily for 5 days then 1 daily for 5 days PREDNISONE 20 MG TABS 868776 PREDNISONE Inactive PROAIR HFA 108 (90 BASE) MCG/ACT AERS 2 puffs four times a day as needed 2015 PROAIR HFA 108 (90 BASE) MCG/ACT AERS ALBUTEROL SULFATE Inactive HYDROCODONE-ACETAMINOPHEN 5-325 MG TABS 1 to 2 four times a day as needed for pain use until can be seen by specialist HYDROCODONE- ACETAMINOPHEN 5-325 MG TABS 653118 HYDROCODONE-ACETAMINOPHEN Inactive TESSALON PERLES 100 MG CAP 1 to 2 tablets by mouth 3 times daily as needed for cough TESSALON PERLES 100 MG CAP 745742 BENZONATATE Inactive CHANTIX STARTING MONTH EARNEST 0.5 [...] Pain 2015 DICLOFENAC SODIUM 50 MG TBEC 339737 DICLOFENAC SODIUM Inactive TOPAMAX 50 MG ORAL TABS 1 tab twice daily TOPAMAX 50 MG ORAL TABS 728070 TOPIRAMATE Inactive VIIBRYD 10 MG ORAL TABS Take 1 tablet once a day VIIBRYD 10 MG ORAL TABS VILAZODONE HCL Inactive LEVOFLOXACIN 500 MG ORAL TABS po daily LEVOFLOXACIN 500 MG ORAL TABS 851762 LEVOFLOXACIN Inactive METHYLPREDNISOLONE 4 MG ORAL TABS po daily METHYLPREDNISOLONE 4 MG ORAL TABS 117873 METHYLPREDNISOLONE Inactive OXYCODONE HCL ER 10 MG ORAL T12A 1/2 tab by mouth every 4 hours prn OXYCODONE HCL ER 10 MG ORAL T12A OXYCODONE HCL Inactive FLAGYL 500 MG TAB 1 tablet by mouth bid FLAGYL 500 MG TAB 142395 METRONIDAZOLE Inactive MONISTAT 7 COMBO PACK WOODROW 100 & 2 MG-% (9GM) VAG KIT 1 applicatorful per vagina q pm x 7 MONISTAT 7 COMBO PACK WOODROW 100 & 2 MG-% (9GM) VAG KIT MICONAZOLE NITRATE Inactive BACTRIM DS 800-160 MG TABS 1 twice a day BACTRIM DS 800-160 MG TABS 340240 SULFAMETHOXAZOLE-TRIMETHOPRIM Inactive TRAMADOL HCL 50 MG TABS 1/2-1 tab TID PRN TRAMADOL HCL 50 MG TABS 926592 TRAMADOL HCL Inactive ABILIFY MAINTENA 400 MG IM SUSR 400mg injection every 26 days ABILIFY MAINTENA 400 MG IM SUSR ARIPIPRAZOLE Inactive KLONOPIN 1 MG ORAL TABS 1 tab po TID KLONOPIN 1 MG ORAL TABS 007665 CLONAZEPAM Inactive ADVAIR DISKUS 250-50 MCG/DOSE INH AEPB 1 puff twice a day for asthma ADVAIR DISKUS 250-50 MCG/DOSE INH AEPB FLUTICASONE- SALMETEROL Inactive BENADRYL 25 MG CAP 4 po at bedtime for insomnia BENADRYL 25 MG CAP DIPHENHYDRAMINE HCL Inactive PREDNISONE 20 MG TABS 2 daily for 5 days then 1 daily for 5 days PREDNISONE 20 MG TABS 801843 PREDNISONE Inactive HYDROCODONE-ACETAMINOPHEN 5-325 MG ORAL TABS 1 tab two times a day HYDROCODONE-ACETAMINOPHEN 5-325 MG ORAL TABS 969487 HYDROCODONE-ACETAMINOPHEN Inactive ZITHROMAX Z-EARNEST 250 MG TABS 2 today and then 1 daily for 4 days ZITHROMAX Z-EARNEST 250 MG TABS 8972870 AZITHROMYCIN Inactive GUAIFENESIN-CODEINE 100-10 MG/5ML SYRP 5ml every 4 to 6 hours as needed for cough GUAIFENESIN-CODEINE 100-10 MG/5ML SYRP 969572 GUAIFENESIN-CODEINE Inactive HALOPERIDOL 10 MG ORAL TABS 1 tab q.d HALOPERIDOL 10 MG ORAL TABS 970872 HALOPERIDOL Inactive ASPIRIN 325 MG ORAL TABS 1 tab q.d ASPIRIN 325 MG ORAL TABS 651189 ASPIRIN Inactive FLUTICASONE PROPIONATE 50 MCG/ACT SUSP 2 sprays each nostril daily before bed. FLUTICASONE PROPIONATE 50 MCG/ACT SUSP 4724794 FLUTICASONE PROPIONATE Inactive ZOFRAN 4 MG TABS 1 po q6hr PRN Nausea ZOFRAN 4 MG TABS 401927 ONDANSETRON HCL Inactive KEFLEX 500 MG CAP 1 po qid KEFLEX 500 MG CAP 272791 CEPHALEXIN Inactive ACETAMINOPHEN-CODEINE 120-12 MG/5ML SOLN 5 ml by mouth every 4-6 hours if needed for cough ACETAMINOPHEN-CODEINE 120-12 MG/5ML SOLN 368131 ACETAMINOPHEN-CODEINE Inactive PREDNISONE 20 MG TAB 1 tablet daily x 4 days PREDNISONE 20 MG TAB 422456 PREDNISONE Inactive TROPICAMIDE 0.5 % OPHTH SOLN 1 drop PRN eye spasms TROPICAMIDE 0.5 % OPHTH SOLN 443008 TROPICAMIDE Inactive LEVAQUIN 500 MG TABS 1 daily for infection LEVAQUIN 500 MG TABS 471107 LEVOFLOXACIN Inactive PREDNISONE 10 MG TABS 2 daily for 5 days then 1 daily for 5 days PREDNISONE 10 MG TABS 323949 PREDNISONE Inactive EQ NICOTINE 21 MG/24HR TRANS PT24 Apply daily to stop smoking EQ NICOTINE 21 MG/24HR TRANS PT24 NICOTINE Inactive DIFLUCAN 150 MG TABS 1 by mouth for yeast DIFLUCAN 150 MG TABS 804465 FLUCONAZOLE Inactive BACTRIM DS 800-160 MG TABS 1 twice a day BACTRIM DS 800-160 MG TABS [id number] SULFAMETHOXAZOLE-TRIMETHOPRIM Inactive TESSALON PERLES 100 MG CAPS 1 three times a day as needed for cough TESSALON PERLES 100 MG CAPS 736824 BENZONATATE Inactive AMITIZA 8 MCG ORAL CAPS [...] twice a day MUPIROCIN 2 % OINT 703906 MUPIROCIN Inactive CEFDINIR 300 MG CAPS by mouth twice a day CEFDINIR 300 MG CAPS 317007 CEFDINIR Inactive PREDNISONE 20 MG TAB 2 tabs daily for 3 days, 1 tab daily for 3 days, 1/2 tab daily for 2 days PREDNISONE 20 MG TAB 618668 PREDNISONE Inactive BACTRIM DS 800-160 MG TABS [...] x 10 days KEFLEX 500 MG CAP 679245 CEPHALEXIN Inactive Advance Directives Directive Description Start Date DISCUSSED WITH PATIENT -- NO DECISION MADE Vital Signs Date Name Value Unit Range Description blood pressure, diastolic 90 mm[Hg] BP mcnally [...] % 11.0-15.0 platelet count 443 THOUSAND/UL 10*3/mm3 887-604 0800/03/01 mean platelet volume 8.2 fL 7.5-12.5 leukocyte [...] % 11.0-15.0 platelet count 349 THOUSAND/UL 10*3/mm3 046-098 7090/04/12 mean platelet volume 8.4 fL 7.5-12.5 Lab [...] 369 10^3/MM^3 10*3/mm3 142-424 Lab Report: Chlamydia/GC APTIMA/66333 - Lab chlamydia DNA probe NOT DETECTED NOT DETECTED Lab Report: Chlamydia/GC APTIMA/65278 - Microbiology Neisseria gonorrhoeae DNA probe NOT DETECTED NOT DETECTED Lab Report: Chlamydia/GC APTIMA/57534, Urinalysis, Complete, with Reflex ... - Lab chlamydia DNA probe NOT DETECTED NOT DETECTED Lab Report: Chlamydia/GC APTIMA/59134, Urinalysis, Complete, with Reflex ... - Microbiology Neisseria gonorrhoeae DNA probe NOT DETECTED NOT DETECTED Lab Report: Chlamydia/GC APTIMA/69499, Urinalysis, Complete, with Reflex ... - Urinalysis microalbumin/total urine volume 2 mg/L Units converted. See lab report for original value. microalbumin/creatinine ratio, urine 9 MCG/MG CREAT mg/L <30 Lab Report: Comp. Metabolic Panel - Chemistry sodium, serum 140 mmol/L 715-072 6129/08/08 carbon dioxide, venous blood 33.7 mmol/L 21.0-32.0 potassium, serum 5.0 mmol/L 3.5-5.2 chloride, serum 103 mmol/L 98-107 blood glucose 80 mg/dL 65-110 urea nitrogen, blood 13 mg/dL 7-18 creatinine, serum 0.88 mg/dL 0.55-1.30 alanine aminotransferase (SGPT), serum 54 U/L 12-78 aspartate aminotransferase (SGOT), serum 29 U/L 15-37 calcium, serum 9.7 mg/dL 8.5-10.1 bilirubin, serum, total 0.30 mg/dL 0.00-1.00 sodium, serum 140 mmol/L 522-726 5415/06/28 carbon dioxide, venous blood 23.8 mmol/L 21.0-32.0 [...] 5.0-8.5 Encounters Code Encounter Date Provider Facility CPT-37523 Level 3 Est. Patient 15:55:20 CDT Suzan Boo [facility] [place] CPT-24477 Level 4 Est. Patient 10:49:34 CDT Suzan Boo [facility] CPT-02306 Level 3 Est. Patient 10:00:25 CDT Suzan Boo [facility] CPT-46796 Level 3 Est. Patient 10:29:30 CDT Suzan Boo [facility] CPT-64024 Level 3 Est. Patient 11:04:38 CDT Renzo Thornton [facility] CPT-57201 Level 3 Est. Patient 11:15:58 SPRAY PAINTER Renzo Thornton [facility] CPT-48929 Level 3 Est. Patient 15:28:23 SPRAY PAINTER Suzan Boo [facility] [place] CPT-74167 Level 4 Est. Patient 10:20:54 SPRAY PAINTER Suzan Boo [facility] CPT-54725 Level 3 Est. Patient 11:47:37 SPRAY PAINTER Ahmet Carbajal MD [facility] CPT-95944 Level 3 Est. Patient 10:40:11 SPRAY PAINTER Ahmet Carbajal MD [facility] CPT-34800 Level 3 Est. Patient 15:07:06 SPRAY PAINTER Neeraj Collins MD [facility] CPT-23970 Level 4 Est. Patient 14:45:00 SPRAY PAINTER Ahmet Carbajal MD [facility] CPT-95560 Level 3 Est. Patient 13:59:59 CDT Luigi Martínez [facility] CPT-64926 Level 3 Est. Patient 18:18:53 CDT Neeraj Collins MD [facility] CPT-55981 Level 3 Est. Patient 15:50:44 CDT Vishal Hui MD [facility] CPT-21358 Level 3 Est. Patient 11:36:17 CDT Ahmet Carbajal MD [facility] CPT-19098 Level 3 Est. Patient 13:29:16 CDT Vishal Hui MD [facility] CPT-04465 Level 3 Est. Patient 14:27:52 CDT Neeraj Collins MD [facility] CPT-43289 Level 3 Est. Patient 08:56:03 CDT Luigi Martínez [facility] CPT-70115 Level 4 Est. Patient 12:11:48 CDT Fabiola Johnson [facility] CPT-84690 Level 3 New Patient 16:53:37 CDT Albert Caldera MD [facility] CPT-65749 Level 3 Est. Patient 11:25:49 CDT Renzo Thornton DO [facility] CPT-22706 Level 3 Est. Patient 15:22:01 CDT Ahmet Carbajal MD [facility] CPT-03101 Level 4 Est. Patient 09:00:51 SPRAY PAINTER Vishal Hui MD [facility] CPT-68862 Level 3 Est. Patient 11:37:33 SPRAY PAINTER Vishal Hui MD [facility] CPT-21746 Level 3 Est. Patient 08:41:09 SPRAY PAINTER Vishal Hui MD [facility] CPT-41817 Level 4 Est. Patient 10:19:35 SPRAY PAINTER Vishal Hui MD [facility] CPT-72212 Level 3 Est. Patient 13:35:45 CDT Vishal Hui MD [facility] CPT-57850 Level 4 Est. Patient 10:08:37 CDT Vishal Hui MD [facility] CPT-84502 Level 3 Est. Patient 11:22:10 CDT Vishal Hui MD [facility] CPT-06547 Level 3 Est. Patient 11:03:32 CDT Sahara Rodriguez MD PhD [facility] CPT-03460 Level 3 Est. Patient 09:41:35 CDT Vishal Hui MD [facility]-39563 Level 3 Est. Patient 12:00:41 CDT Neeraj Collins MD [facility] CPT-77398 Level 3 Est. Patient 09:16:24 CDT Vishal Hui MD [facility] CPT-25413 Level 4 Est. Patient 13:59:09 CDT Neeraj Collins MD [facility]-90732 Level 3 Est. Patient 15:19:43 CDT Renzo Thornton DO [facility] CPT-29575 Level 3 Est. Patient 18:10:26 CDT Sahara Rodriguez MD PhD [facility]-74451 Level 3 Est. Patient 14:49:50 CDT Vishal Hui MD [facility]-45450 Level 4 Est. Patient 18:41:46 CDT Neeraj Collins MD [facility]-31665 Level 4 Est. Patient 09:18:38 SPRAY PAINTER Vishal Hui MD [facility] CPT-42444 Level 3 Est. Patient 14:43:55 SPRAY PAINTER Vishal Hui MD [facility] CPT-42541 Level 3 Est. Patient 15:26:33 SPRAY PAINTER Sahara Rodriguez MD PhD [facility] CPT-05071 Level 3 Est. Patient 10:32:14 SPRAY PAINTER Vishal Hui MD [facility] CPT-20574 Level 3 Est. Patient 15:12:52 SPRAY PAINTER Vishal Hui MD [facility] CPT-70347 Level 4 Est. Patient 09:19:27 CDT Vishal Hui MD [facility] CPT-76833 Level 3 Est. Patient 15:53:00 CDT Renzo Thornton [facility] CPT-04162 Level 3 Est. Patient 15:50:30 CDT Renzo Thornton [facility] CPT-66109 Level 3 Est. Patient 16:55:24 CDT Vishal Hui MD [facility] Procedures Code Procedure Name Date Entry Date Standard Description CPT-02084 EKG Trac and Interp - XRAY USE ONLY 15:59:30 CDT 09/13 CPT-98057 Chest 1V Frontal - XRAY USE ONLY 15:59:30 CDT CPT-03201 Venipuncture Draw Fee 15:44:02 CDT CPT-26729 Venipuncture Draw Fee 08:41:12 CDT CPT-52012 Abd compl w upright - XRAY USE ONLY 10:27:59 CDT 06/28 CPT-98958 Smoking Cessation counseling 11:15:58 SPRAY PAINTER CPT-G0439 [facility] Annual Wellness Exam 09:30:58 SPRAY PAINTER CPT-51420 TSH - LAB USE ONLY 08:50:26 SPRAY PAINTER CPT-74681 CBC - LAB USE ONLY 08:50:26 SPRAY PAINTER CPT-57346 Venipuncture Draw Fee 08:50:26 SPRAY PAINTER CPT-70554 Abx/Therapy Injection 17:34:30 SPRAY PAINTER CPT-36896 Nexplanon Removal with Reinsertion 14:09:32 CDT CPT-J7307 Nexplanon (Implant) 14:09:32 CDT CPT-OV Office Visit 14:09:32 CDT CPT-54714 UA w micro - LAB USE ONLY 16:21:13 CDT CPT-54083 Wet Mount - LAB USE ONLY 16:21:13 CDT CPT-98231 First Vx - Ix admin for Medicare patients 14:37:47 CDT CPT-22962 Fluzone Preservative Free Intramuscular Suspension 14:37 :47 CDT CPT-59888 Abx/Therapy Injection 13:54:22 CDT CPT-49946 Abx/Therapy Injection 08:47:09 CDT CPT-41599 Abx/Therapy Injection 13:29:56 CDT CPT-02131 Abx/Therapy Injection 08:36:16 CDT CPT-41439 Wet Mount - LAB USE ONLY 17:44:58 CDT CPT-51666 UA w micro - LAB USE ONLY 17:44:58 CDT CPT-47974 CMP - LAB USE ONLY 17:44:58 CDT CPT-10323 Venipuncture Draw Fee 17:44:58 CDT CPT-97362 Cervical Min 4V - XRAY USE ONLY 09:01:40 CDT CPT-17276 Chest 2V Frontal and Lat - XRAY USE ONLY 11:06:31 CDT CPT-22830 EKG Trac and Interp - XRAY USE ONLY 11:31:43 CDT 08/26 CPT-J3420 Vitamin B12 1000mcg (Cyanocobalamin) 08:10:26 SPRAY PAINTER 04/12 CPT-07511 Abx/Therapy Injection 08:10:26 SPRAY PAINTER CPT-G0438 Initial Annual Wellness Exam 19:01:01 SPRAY PAINTER CPT-J3420 Vitamin B12 1000mcg (Cyanocobalamin) 16:57:46 CDT 08/14 CPT-94778 Recombivax HB Injection Suspension 5 MCG/0.5ML 08:37:50 SPRAY PAINTER CPT-67325 Immunization Single Admin 08:37:50 SPRAY PAINTER CPT-J3420 Vitamin B12 1000mcg (Cyanocobalamin) 08:32:16 SPRAY PAINTER 03/11 CPT-92661 Abx/Therapy Injection 08:32:16 SPRAY PAINTER CPT-84482 Chest 2V Frontal and Lat 11:46:38 SPRAY PAINTER CPT-48355 Venipuncture Draw Fee 09:12:45 SPRAY PAINTER CPT-J3420 Vitamin B12 1000mcg (Cyanocobalamin) 08:50:15 SPRAY PAINTER 02/08 CPT-80463 Abx/Therapy Injection 08:50:15 SPRAY PAINTER CPT-Cryo Cryotherapy 10:19:35 SPRAY PAINTER CPT-000 Give Appropriate Flu Vaccine 09:22:16 CDT CPT-J3420 Vitamin B12 1000mcg (Cyanocobalamin) 19:08:57 CDT 01/11 CPT-37946 Abx/Therapy Injection 19:08:57 CDT CPT-J3420 Vitamin B12 1000mcg (Cyanocobalamin) 08:19:08 CDT 12/11 CPT-17246 Abx/Therapy Injection 08:19:08 CDT CPT-J3420 Vitamin B12 1000mcg (Cyanocobalamin) 14:48:00 CDT 11/09 CPT-97586 Abx/Therapy Injection 14:47:59 CDT CPT-J3420 Vitamin B12 1000mcg (Cyanocobalamin) 08:34:04 CDT 10/09 CPT-70558 Abx/Therapy Injection 08:34:04 CDT CPT-J3420 Vitamin B12 1000mcg (Cyanocobalamin) 09:18:52 CDT 09/11 CPT-24872 Abx/Therapy Injection 09:18:52 CDT CPT-J3420 Vitamin B12 1000mcg (Cyanocobalamin) 08:35:44 CDT 09/04 CPT-89255 Abx/Therapy Injection 08:35:44 CDT CPT-01813 Immunization Single Admin 11:07:16 CDT CPT-59606 Hepatitis B adult IM 11:07:16 CDT CPT-J3420 Vitamin B12 1000mcg (Cyanocobalamin) 11:00:49 CDT 08/28 CPT-J1040 Depo Medrol 80 mg (Methyl Prednisolone Acetate) 11:00: 49 CDT CPT-13354 Abx/Therapy Injection 11:00:49 CDT CPT-J1040 Depo Medrol 80 mg (Methyl Prednisolone Acetate) 09:16: 23 CDT CPT-J3420 Vitamin B12 1000mcg (Cyanocobalamin) 08:27:05 CDT 08/20 CPT-34851 Abx/Therapy Injection 08:27:05 CDT CPT-70240 Recombivax HB Injection Suspension 5 MCG/0.5ML 10:00:41 CDT CPT-56543 Administration single or combination vaccine inc oral 10 :00:41 CDT CPT-20050 Sono transvag pelvis non OB uterus ovaries cervix 16:36: 57 CDT CPT-24628 LS spine comp w obliq 09:50:55 SPRAY PAINTER CPT-71515 Abd compl w upright 09:50:55 SPRAY PAINTER CPT-J1100 Decadron 4mg (Dexamethasone) 15:51:24 SPRAY PAINTER CPT-J1030 Depo Medrol 40 mg (Methyl Prednisolone Acetate) 15:51: 24 SPRAY PAINTER CPT-27390 Abx/Therapy Injection 15:51:24 SPRAY PAINTER CPT-J1100 Decadron 4mg (Dexamethasone) 15:26:33 SPRAY PAINTER CPT-J1030 Depo Medrol 40 mg (Methyl Prednisolone Acetate) 15:26: 33 SPRAY PAINTER CPT-34438 Sono retroperitoneal complete kidneys and bladder 17:15: 30 CDT CPT-95156 Abd compl w upright 16:09:25 CDT CPT-J1100 Decadron 8mg (Dexamethasone) 17:07:57 CDT CPT-92392 Abx/Therapy Injection 17:07:57 CDT CPT-J1100 Decadron 8mg (Dexamethasone) 16:55:24 CDT CPT-02685 Chest 2V Frontal and Lat 16:32:44 CDT
--- OUTSIDE RECORDS SUMMARY | 2016-11-04 15:00 | XMS REPORT | Clinical Summary ---
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 Juliet Kimbrough ETL DEVELOPER Dependence on other enabling machines and devices Gait unsteady 781.2 Resolved Albert Caldera MD Abnormality of gait Lipoma 214.9 Resolved Albert Caldera MD Lipoma, unspecified site Abdominal pain, RUQ 789.01 Resolved Albert Caldera MD Abdominal pain, right upper quadrant Chest pain, acute 786.50 Resolved Albert Caldera MD Unspecified chest pain Localized adiposity 278.1 Active Ablert Caldera MD Localized adiposity Anxiety Disorder ICD-300.00 [...] 17GMS DAILY IN WATER POLYETHYLENE GLYCOL 3350 14958098720 Active Vishal Hui MD Active METOPROLOL TARTRATE 25 MG ORAL TABS 1/2 tablet twice daily for heart rate and blood pressure METOPROLOL TARTRATE 93098346996 Active Renzo Thornton DO Active VALIUM 5 MG TAB Take 1-2 tablets daily DIAZEPAM 77970260591 Active Ahmet Carbajal MD Active VIIBRYD 10 MG ORAL TABS Take 1 tablet once a day VILAZODONE HCL 97364774490 Active Ahmet Carbajal MD Active DICLOFENAC POTASSIUM TABS Take 1 tablet twice a day (pt. is not sure of the dose.) DICLOFENAC POTASSIUM TABS 03771162401 Active Ahmet Carbajal MD Active MIRALAX PACK 1 po qd PRN Constipation POLYETHYLENE GLYCOL 3350 04308438010 No Longer Active Ahmet Carbajal MD Active MINIPRESS 2 MG CAPS 4 cap po at night PRAZOSIN HCL 73642497712 No Longer Active Ahmet Carbajal MD Active PIROXICAM 20 MG CAPS 1 cap po qd PRN Pain PIROXICAM 30677086700 No Longer Active Ahmet Carbajal MD Active TRAMADOL HCL 50 MG TABS 1-2 po TID PRN Pain TRAMADOL HCL 13526030873 No Longer Active Ahmet Carbajal MD Active METOPROLOL TARTRATE 50 MG TAB 1 po bid METOPROLOL TARTRATE 32251998831 No Longer Active Ahmet Carbajal MD Active ABILIFY 15 MG ORAL TABS 1 tab daily ARIPIPRAZOLE 54057720026 No Longer Active Ahmet Carbajal MD Active PROZAC 20 MG ORAL CAPS 1 tab daily FLUOXETINE HCL 63949952411 No Longer Active Ahmet Carbajal MD Active AMBIEN 5 MG ORAL TABS 1 tab at bedtime ZOLPIDEM TARTRATE 23375943243 No Longer Active Ahmet Carbajal MD Active PREDNISONE 20 MG TAB 2 tabs daily for 4 days, 1 tab daily for 4 days, 1/2 tab daily for 4 days PREDNISONE 29298366223 No Longer Active Ahmet Carbajal MD Active KEFLEX 500 MG CAP 1 po TID x 10 days CEPHALEXIN 27515696529 No Longer Active Vishal Hui MD Active ABILIFY MAINTENA 400 MG IM SUSR Injection once per month ARIPIPRAZOLE 22168346108 Active Juliet ETL DEVELOPER Active IMITREX 50 MG ORAL TABS 1/2 tab every 6 hours prn SUMATRIPTAN SUCCINATE 13084423188 Active Jillina Frazell ETL DEVELOPER Active TOPAMAX 50 MG ORAL TABS 1 tab twice daily TOPIRAMATE 52574190254 Active Vishal Hui MD Active SAPHRIS 5 MG SUBL 1 po bid ASENAPINE MALEATE 49118734622 No Longer Active Jillina Mauricio NORIEGA Active LATUDA 80 MG TABS Take one by mouth daily LURASIDONE HCL 53642963332 No Longer Active Pacollina Mauricio NORIEGA Active AMLODIPINE BESYLATE 5 MG TABS 1 tablet by mouth daily AMLODIPINE BESYLATE 31057197072 No Longer Active Pacollina Mauricio NORIEGA Active AMITRIPTYLINE HCL 100 MG TAB one at hs AMITRIPTYLINE HCL 07131265610 No Longer Active Vishal Hui MD Active TRAZODONE HCL 100 MG TAB take 1 at bedtime TRAZODONE HCL 80707988324 No Longer Active Vishal Hui MD Active VYVANSE 40 MG CAPS 1 daily, LISDEXAMFETAMINE DIMESYLATE 27522501891 No Longer Active Vishal Hui MD Active IBUPROFEN 600 MG TAB 1 po TID PRN IBUPROFEN 53972933165 No Longer Active Vishal Hui MD Active PROZAC 20 MG CAP Take one by mouth daily FLUOXETINE HCL 78859522293 No Longer Active Vishal Hui MD Active ZOFRAN 4 MG TABS 1 po q6hr PRN Nausea ONDANSETRON HCL Active Vishal Hui MD Active BACTRIM DS 800-160 MG TABS 1 pill by mouth twice daily SULFAMETHOXAZOLE-TRIMETHOPRIM 57995726005 No Longer Active Sahara Rodriguez MD PhD Active DIFLUCAN 150 MG TAB 1 tablet by mouth daily FLUCONAZOLE 82668118219 No Longer Active Vishal Hui MD Active TIZANIDINE HCL 4 MG TABS 1 po q6hr PRN Muscle Spasm/Back Pain TIZANIDINE HCL 97600327151 Active Vishal Hui MD Active CLINDAMYCIN HCL 150 MG CAPS 1 four times a day CLINDAMYCIN HCL 02286834413 No Longer Active Neeraj Collins MD Active KEFLEX 500 MG ORAL CAPS 1 cap QID by mouth CEPHALEXIN 17605955558 No Longer Active Neeraj Collins MD Active DIFLUCAN 150 MG TABS 1 pill every other day x 2 doses FLUCONAZOLE 63142113804 No Longer Active aShara Rodriguez MD PhD Active MELATONIN 3 MG CAPS 2 po q hs MELATONIN 15196423406 No Longer Active Sahara Rodriguez MD PhD Active MULTIVITAMINS CAPS Take one by mouth daily MULTIPLE VITAMIN 60025114718 No Longer Active Sahara Rodriguez MD PhD Active BACTRIM DS 800-160 MG TAB 1 tab by mouth twice daily TRIMETHOPRIM-SULFAMETHOXAZOLE 84063676876 No Longer Active Sahara Rodriguez MD PhD Active [facility] PROBIOTIC ORAL CHEW 2 daily po PROBIOTIC PRODUCT 28565521018 No Longer Active Sahara Rodriguez MD PhD Active BACTRIM DS 800-160 MG TABS 1 po BID x 7 days SULFAMETHOXAZOLE-TRIMETHOPRIM 84796788865 No Longer Active Vishal Hui MD Active CHANTIX STARTING MONTH EARNEST 0.5 MG X 11 & 1 MG X 42 TABS 0.5mg daily for 3 days , then 0.5mg BID for 4 days, then 1mg BID VARENICLINE TARTRATE 21575285784 No Longer Active TAMARA Gray Active VERAPAMIL HCL CR 120 MG TAB CR 1 po bid VERAPAMIL HCL 04210328673 No Longer Active Vishal Hui MD Active METOPROLOL SUCCINATE 50 MG TB24 1 tablet by mouth daily METOPROLOL SUCCINATE 16613445076 No Longer Active Vishal Hui MD Active SAPHRIS 10 MG SUBL 1 tab po bid ASENAPINE MALEATE 51759997085 No Longer Active Vishal Hui MD Active LISINOPRIL 20 MG TABS 1 tab po qd LISINOPRIL 28187798441 No Longer Active Vishal Hui MD Active BENADRYL 25 MG CAP 2 po tid prn anxiety DIPHENHYDRAMINE HCL 09444733079 Active Vishal Hui MD Active LATUDA 20 MG TABS Take one by mouth daily LURASIDONE HCL 35463638280 No Longer Active Vishal Hui MD Active TRAZODONE HCL 50 MG TABS 1/2 tab po qd prn for anxiety TRAZODONE HCL 39616981699 No Longer Active Vishal Hui MD Active OMEPRAZOLE 20 MG TBEC 1 po q a.m. 30min prior to first food intake OMEPRAZOLE 46107945290 Active Vishal Hui MD Active RANITIDINE HCL 150 MG CAPS 1 twice a day RANITIDINE HCL 27964139449 Active Vishal Hui MD Active LINZESS 290 MCG CAPS Take one by mouth daily LINACLOTIDE 99359724308 No Longer Active Vishal Hui MD Active SAPHRIS 5 MG SUBL 1 tab po qd ASENAPINE MALEATE 49988870306 No Longer Active Vishal Hui MD Active ZALEPLON 10 MG CAPS 1 cap po every other night ZALEPLON 96398219425 No Longer Active Vishal Hui MD Active LYRICA 50 MG CAPS 1 tab po TID PREGABALIN 06020290522 No Longer Active Vishal Hui MD Active LORATADINE 10 MG TABS 1 tab po qd LORATADINE 08583105367 No Longer Active Vishal Hui MD Active VERAPAMIL HCL ER 180 MG CR-TABS 1 tab po bid VERAPAMIL HCL 50431252573 No Longer Active Vishal Hui MD Active MIRALAX POWD 1 capfull once daily POLYETHYLENE GLYCOL 3350 28293793438 No Longer Active Vishal Hui MD Active PREDNISONE 20 MG TABS 1 tab po qd PREDNISONE 92194175412 No Longer Active Renzo Thornton DO Active LEVOFLOXACIN 500 MG TABS 1 tab po qd LEVOFLOXACIN 50408480912 No Longer Active Renzo Thornton DO Active BUSPIRONE HCL 15 MG TABS 1 tab po TID BUSPIRONE HCL 01069511975 No Longer Active Renzo Thornton DO Active BENZTROPINE MESYLATE 1 MG TABS 1 tab po qd BENZTROPINE MESYLATE 22852120923 No Longer Active Renzo Thornton DO Active ATENOLOL 25 MG TABS 1 tab po qd ATENOLOL 68360816868 No Longer Active Renzo Thornton DO Active ESCITALOPRAM OXALATE 20 MG TABS 1 tab po qd ESCITALOPRAM OXALATE 56736540732 No Longer Active Renzo Thornton DO Active ADVAIR DISKUS 250-50 MCG/DOSE AEPB 1 puff BID FLUTICASONE-SALMETEROL 13981309439 No Longer Active Renzo Thornton DO Active PREDNISONE 20 MG TAB 2 tabs daily for 3 days, 1 tab daily for 3 days, 1/2 tab daily for 2 days PREDNISONE 35296857174 No Longer Active Vishal Hui MD Active CEFDINIR 300 MG CAPS by mouth twice a day CEFDINIR 53520498130 No Longer Active Vishal Hui MD Active LANSOPRAZOLE 30 MG CPDR 1 cap po qd LANSOPRAZOLE 38304205338 No Longer Active Vishal Hui MD Active BACLOFEN 20 MG TABS 1 tab po tid BACLOFEN 80214374130 No Longer Active Vishal Hui MD Active ADVAIR DISKUS 250-50 MCG/DOSE AEPB 1 puff BID ADVAIR DISKUS 250-50 MCG/DOSE AEPB FLUTICASONE-SALMETEROL Inactive ESCITALOPRAM OXALATE 20 MG TABS 1 tab po qd ESCITALOPRAM OXALATE 20 MG TABS 459857 ESCITALOPRAM OXALATE Inactive ATENOLOL 25 MG TABS 1 tab po qd ATENOLOL 25 MG TABS 325021 ATENOLOL Inactive BENZTROPINE MESYLATE 1 MG TABS 1 tab po qd BENZTROPINE MESYLATE 1 MG TABS 659886 BENZTROPINE MESYLATE Inactive BUSPIRONE HCL 15 MG TABS 1 tab po TID BUSPIRONE HCL 15 MG TABS 676163 BUSPIRONE HCL Inactive LEVOFLOXACIN 500 MG TABS 1 tab po qd LEVOFLOXACIN 500 MG TABS 308501 LEVOFLOXACIN Inactive PREDNISONE 20 MG TABS 1 tab po qd PREDNISONE 20 MG TABS 574459 PREDNISONE Inactive MIRALAX POWD 1 capfull once daily MIRALAX POWD 422602 POLYETHYLENE GLYCOL 3350 Inactive VERAPAMIL HCL ER 180 MG CR-TABS 1 tab po bid VERAPAMIL HCL ER 180 MG CR-TABS VERAPAMIL HCL Inactive LORATADINE 10 MG TABS 1 tab po qd LORATADINE 10 MG TABS 939402 LORATADINE Inactive LYRICA 50 MG CAPS 1 tab po TID LYRICA 50 MG CAPS PREGABALIN Inactive ZALEPLON 10 MG CAPS 1 cap po every other night ZALEPLON 10 MG CAPS 556593 ZALEPLON Inactive SAPHRIS 5 MG SUBL 1 tab po qd SAPHRIS 5 MG SUBL ASENAPINE MALEATE Inactive TRAZODONE HCL 50 MG TABS 1/2 tab po qd prn for anxiety TRAZODONE HCL 50 MG TABS 357271 TRAZODONE HCL Inactive LATUDA 20 MG TABS Take one by mouth daily LATUDA 20 MG TABS LURASIDONE HCL Inactive LISINOPRIL 20 MG TABS 1 tab po qd LISINOPRIL 20 MG TABS 615370 LISINOPRIL Inactive SAPHRIS 10 MG SUBL 1 [...] twice daily BACTRIM DS 800-160 MG TAB 071722 TRIMETHOPRIM-SULFAMETHOXAZOLE Inactive MULTIVITAMINS CAPS Take one by mouth daily MULTIVITAMINS CAPS MULTIPLE VITAMIN Inactive MELATONIN 3 MG CAPS 2 po q hs MELATONIN 3 MG CAPS 937955 MELATONIN Inactive KEFLEX 500 MG ORAL CAPS 1 cap QID by mouth KEFLEX 500 MG ORAL CAPS 804847 CEPHALEXIN Inactive CLINDAMYCIN HCL 150 MG CAPS 1 four times a day CLINDAMYCIN HCL 150 MG CAPS 19740326 CLINDAMYCIN HCL Inactive DIFLUCAN 150 MG TAB 1 tablet by mouth daily DIFLUCAN 150 MG TAB 617558 FLUCONAZOLE Inactive PROZAC 20 MG CAP Take one by mouth daily PROZAC 20 MG CAP 242044 FLUOXETINE HCL Inactive IBUPROFEN 600 MG TAB 1 po TID PRN IBUPROFEN 600 MG TAB 097144 IBUPROFEN Inactive VYVANSE 40 MG CAPS 1 daily, VYVANSE 40 MG CAPS LISDEXAMFETAMINE DIMESYLATE Inactive TRAZODONE HCL 100 MG TAB take 1 at bedtime TRAZODONE HCL 100 MG TAB 273333 TRAZODONE HCL Inactive AMITRIPTYLINE HCL 100 MG TAB one at hs AMITRIPTYLINE HCL 100 MG TAB 849673 AMITRIPTYLINE HCL Inactive AMLODIPINE BESYLATE 5 MG TABS 1 tablet by mouth daily AMLODIPINE BESYLATE 5 MG TABS 189057 AMLODIPINE BESYLATE Inactive LATUDA 80 MG TABS Take one by mouth daily LATUDA 80 MG TABS LURASIDONE HCL Inactive SAPHRIS 5 MG SUBL 1 po bid SAPHRIS 5 MG SUBL ASENAPINE MALEATE Inactive PREDNISONE 20 MG TAB 2 tabs daily for 4 days, 1 tab daily for 4 days, 1/2 tab daily for 4 days PREDNISONE 20 MG TAB 747312 PREDNISONE Inactive AMBIEN 5 MG ORAL TABS 1 tab at bedtime AMBIEN 5 MG ORAL TABS 114730 ZOLPIDEM TARTRATE Inactive PROZAC 20 MG ORAL CAPS 1 tab daily PROZAC 20 MG ORAL CAPS 647277 FLUOXETINE HCL Inactive ABILIFY 15 MG ORAL TABS 1 tab daily ABILIFY 15 MG ORAL TABS 701185 ARIPIPRAZOLE Inactive METOPROLOL TARTRATE 50 MG TAB 1 po bid METOPROLOL TARTRATE 50 MG TAB 011519 METOPROLOL TARTRATE Inactive TRAMADOL HCL 50 MG TABS 1-2 po TID PRN Pain TRAMADOL HCL 50 MG TABS 122653 TRAMADOL HCL Inactive PIROXICAM 20 MG CAPS 1 cap po qd PRN Pain PIROXICAM 20 MG CAPS 526276 PIROXICAM Inactive MINIPRESS 2 MG CAPS 4 cap po at night MINIPRESS 2 MG CAPS 764738 PRAZOSIN HCL Inactive MIRALAX PACK 1 po qd PRN Constipation MIRALAX PACK 069186 POLYETHYLENE GLYCOL 3350 Inactive CEFDINIR 300 MG CAPS by mouth twice a day CEFDINIR 300 MG CAPS 294109 CEFDINIR Inactive PREDNISONE 20 MG TAB 2 tabs daily for 3 days, 1 tab daily for 3 days, 1/2 tab daily for 2 days PREDNISONE 20 MG TAB 366868 PREDNISONE Inactive BACTRIM DS 800-160 MG TABS 1 po BID x 7 days BACTRIM DS 800-160 MG TABS 976076 SULFAMETHOXAZOLE-TRIMETHOPRIM Inactive DIFLUCAN 150 MG TABS 1 pill every other day x 2 doses DIFLUCAN 150 MG TABS 069642 FLUCONAZOLE Inactive BACTRIM DS 800-160 MG TABS 1 pill by mouth twice daily BACTRIM DS 800-160 MG TABS 450223 SULFAMETHOXAZOLE-TRIMETHOPRIM Inactive KEFLEX 500 MG CAP 1 po TID x 10 days KEFLEX 500 MG CAP 659868 CEPHALEXIN Inactive Advance Directives Directive Description Start [...] % 11.6-14.8 platelet count 394 10^3/MM^3 10*3/mm3 763-523 8250/01/11 leukocyte count, blood 13.8 10^3/MM^3 10*3/mm3 4.6-10.2 [...] Panel - Chemistry sodium, serum 139 mmol/L 719-198 5524/12/03 carbon dioxide, venous blood 28.5 mmol/L 21.0-32.0 [...] 5.5 % 4.3-6.0 cholesterol, serum 159 mg/dL 279-800 7646/12/03 triglyceride, serum, fasting 118 mg/dL 30-200 HDL [...] Panel - Chemistry sodium, serum 139 mmol/L 630-779 1172/12/22 carbon dioxide, venous blood 26.8 mmol/L 21.0-32.0 potassium, serum 4.2 mmol/L 3.5-5.2 chloride, serum 103 mmol/L 98-107 blood glucose 115 mg/dL 65-110 urea nitrogen, blood 20 mg/dL 7-18 creatinine, serum 0.90 mg/dL 0.55-1.30 alanine aminotransferase (SGPT), serum 38 U/L 12-78 aspartate aminotransferase (SGOT), serum 19 U/L 15-37 calcium, serum 8.6 mg/dL 8.5-10.1 bilirubin, serum, total 0.30 mg/dL 0.00-1.00 sodium, serum 139 mmol/L 546-120 5070/01/11 carbon dioxide, venous blood 26.6 mmol/L 21.0-32.0 potassium, serum 4.1 mmol/L 3.5-5.2 chloride, serum 100 mmol/L 98-107 blood glucose 86 mg/dL 65-110 urea nitrogen, blood 16 mg/dL 7-18 creatinine, serum 1.00 mg/dL 0.55-1.30 alanine aminotransferase (SGPT), serum 48 U/L 12-78 aspartate aminotransferase (SGOT), serum 17 U/L 15-37 calcium, serum 9.1 mg/dL 8.5-10.1 bilirubin, serum, total 0.40 mg/dL 0.00-1.00 sodium, serum 142 mmol/L 525-069 3248/06/08 carbon dioxide, venous blood 27.6 mmol/L 21.0-32.0 [...] Rate - Chemistry sodium, serum 139 mmol/L 867-181 3491/12/11 carbon dioxide, venous blood 25.4 mmol/L 21.0-32.0 [...] mg/dL Encounters Code Encounter Date Provider Facility CPT-22388 Level 3 New Patient 16:53:37 CDT Albert Caldera MD [facility] CPT-51204 Level 3 Est. Patient 11:25:49 CDT Renzo Thornton DO [facility] CPT-57726 Level 3 Est. Patient 15:22:01 CDT Ahmet Carbajal MD [facility] CPT-02831 Level 4 Est. Patient 09:00:51 [employer] Vishal Hui MD [facility] CPT-66719 Level 3 Est. Patient 11:37:33 [employer] Vishal Hui MD [facility] CPT-89126 Level 3 Est. Patient 08:41:09 [employer] Vishal Hui MD [facility] CPT-30746 Level 4 Est. Patient 10:19:35 [employer] Vishal Hui MD [facility] CPT-72406 Level 3 Est. Patient 13:35:45 CDT Vishal Hui MD [facility] CPT-43694 Level 4 Est. Patient 10:08:37 CDT Vishal Hui MD [facility] CPT-66920 Level 3 Est. Patient 11:22:10 CDT Vishal Hui MD [facility] CPT-45544 Level 3 Est. Patient 11:03:32 CDT Sahara Rodriguez MD [facility] CPT-18327 Level 3 Est. Patient 09:41:35 CDT Vishal Hui MD [facility] CPT-33983 Level 3 Est. Patient 12:00:41 CDT Neeraj Collins MD [facility]-41829 Level 3 Est. Patient 09:16:24 CDT Vishal Hui MD [facility] CPT-75579 Level 4 Est. Patient 13:59:09 CDT Neeraj Collins MD [facility] CPT-84670 Level 3 Est. Patient 15:19:43 CDT Renzo Thornton DO [facility] CPT-04418 Level 3 Est. Patient 18:10:26 CDT Sahara Rodriguez MD [facility]-56059 Level 3 Est. Patient 14:49:50 CDT Vishal Hui MD [facility] CPT-95776 Level 4 Est. Patient 18:41:46 CDT Neeraj Collins MD [facility] CPT-84324 Level 4 Est. Patient 09:18:38 [employer] Vishal Hui MD [facility] CPT-05038 Level 3 Est. Patient 14:43:55 [employer] Vishal Hui MD [facility] CPT-67106 Level 3 Est. Patient 15:26:33 [employer] Sahara Rodriguez MD PhD [facility] CPT-84214 Level 3 Est. Patient 10:32:14 [employer] Vishal Hui MD [facility] CPT-55535 Level 3 Est. Patient 15:12:52 [employer] Vishal Hui MD [facility] CPT-85389 Level 4 Est. Patient 09:19:27 CDT Vishal Hui MD [facility] CPT-45100 Level 3 Est. Patient 15:53:00 CDT Renzo Thornton [facility] CPT-79896 Level 3 Est. Patient 15:50:30 CDT Renzo Thornton [facility] CPT-70091 Level 3 Est. Patient 16:55:24 CDT Vishal Hui MD [facility] Procedures Code Procedure Name Date Entry Date Standard Description CPT-27160 EKG Trac and Interp - XRAY USE ONLY 11:31:43 CDT 08/26 CPT-J3420 Vitamin B12 1000mcg (Cyanocobalamin) 08:10:26 [employer] 04/12 CPT-17787 Abx/Therapy Injection 08:10:26 [employer] CPT-G0438 Initial Annual Wellness Exam 19:01:01 [employer] CPT-J3420 Vitamin B12 1000mcg (Cyanocobalamin) 16:57:46 CDT 08/14 CPT-76467 Recombivax HB Injection Suspension 5 MCG/0.5ML 08:37:50 [employer] CPT-69641 Immunization Single Admin 08:37:50 [employer] CPT-J3420 Vitamin B12 1000mcg (Cyanocobalamin) 08:32:16 [employer] 03/11 CPT-29080 Abx/Therapy Injection 08:32:16 [employer] CPT-77825 Chest 2V Frontal and Lat 11:46:38 [employer] CPT-57775 Venipuncture Draw Fee 09:12:45 [employer] CPT-J3420 Vitamin B12 1000mcg (Cyanocobalamin) 08:50:15 [employer] 02/08 CPT-74121 Abx/Therapy Injection 08:50:15 [employer] CPT-Cryo Cryotherapy 10:19:35 [employer] CPT-000 Give Appropriate Flu Vaccine 09:22:16 CDT CPT-J3420 Vitamin B12 1000mcg (Cyanocobalamin) 19:08:57 CDT 01/11 CPT-00791 Abx/Therapy Injection 19:08:57 CDT CPT-J3420 Vitamin B12 1000mcg (Cyanocobalamin) 08:19:08 CDT 12/11 CPT-06025 Abx/Therapy Injection 08:19:08 CDT CPT-J3420 Vitamin B12 1000mcg (Cyanocobalamin) 14:48:00 CDT 11/09 CPT-47673 Abx/Therapy Injection 14:47:59 CDT CPT-J3420 Vitamin B12 1000mcg (Cyanocobalamin) 08:34:04 CDT 10/09 CPT-79133 Abx/Therapy Injection 08:34:04 CDT CPT-J3420 Vitamin B12 1000mcg (Cyanocobalamin) 09:18:52 CDT 09/11 CPT-44727 Abx/Therapy Injection 09:18:52 CDT CPT-J3420 Vitamin B12 1000mcg (Cyanocobalamin) 08:35:44 CDT 09/04 CPT-91025 Abx/Therapy Injection 08:35:44 CDT CPT-51388 Immunization Single Admin 11:07:16 CDT CPT-78128 Hepatitis B adult IM 11:07:16 CDT CPT-J3420 Vitamin B12 1000mcg (Cyanocobalamin) 11:00:49 CDT 08/28 CPT-J1040 Depo Medrol 80 mg (Methyl Prednisolone Acetate) 11:00: 49 CDT CPT-17180 Abx/Therapy Injection 11:00:49 CDT CPT-J1040 Depo Medrol 80 mg (Methyl Prednisolone Acetate) 09:16: 23 CDT CPT-J3420 Vitamin B12 1000mcg (Cyanocobalamin) 08:27:05 CDT 08/20 CPT-19704 Abx/Therapy Injection 08:27:05 CDT CPT-88287 Recombivax HB Injection Suspension 5 MCG/0.5ML 10:00:41 CDT CPT-87333 Administration single or combination vaccine inc oral 10 :00:41 CDT CPT-17226 Sono transvag pelvis non OB uterus ovaries cervix 16:36: 57 CDT CPT-42837 LS spine comp w obliq 09:50:55 [employer] CPT-89767 Abd compl w upright 09:50:55 [employer] CPT-J1100 Decadron 4mg (Dexamethasone) 15:51:24 [employer] CPT-J1030 Depo Medrol 40 mg (Methyl Prednisolone Acetate) 15:51: 24 [employer] CPT-14845 Abx/Therapy Injection 15:51:24 [employer] CPT-J1100 Decadron 4mg (Dexamethasone) 15:26:33 [employer] CPT-J1030 Depo Medrol 40 mg (Methyl Prednisolone Acetate) 15:26: 33 [employer] CPT-49379 Sono retroperitoneal complete kidneys and bladder 17:15: 30 CDT CPT-34671 Abd compl w upright 16:09:25 CDT CPT-J1100 Decadron 8mg (Dexamethasone) 17:07:57 CDT CPT-94696 Abx/Therapy Injection 17:07:57 CDT CPT-J1100 Decadron 8mg (Dexamethasone) 16:55:24 CDT CPT-25493 Chest 2V Frontal and Lat 16:32:44 CDT
--- OUTSIDE RECORDS SUMMARY | 2016-11-04 15:03 | XMS REPORT | Clinical Summary ---
Author Author Admin, Dereck Organization [employer] Address Unknown Phone Unavailable Allergies, Adverse [...] and of unspecified site Fatigue 780.79 Resolved Vihsal Hui MD Other malaise and fatigue Fatigue [...] Active Ahmet Carbajal MD Generalized anxiety disorder Tread Builder well woman exam V72.31 Active Suzan Boo [...] Hui MD Health screening ICD-V70.0 Inactive Suzan oBo APRN Sinus tachycardia ICD-427.89 Inactive Suzan Boo [...] Hui MD Other abnormal blood chemistry ICD-790.6 iJm Hui MD Boils, recurrent ICD-680.9 Jim Hui [...] Hui MD Calf pain, left ICD-729.5 Inactive iVshal Hui MD Asthma, acute ICD-493.92 Inactive Vishal [...] SOLN 1 drop PRN eye spasms TROPICAMIDE 43063037624 Active Samantha Stephan RMA Active RISPERDAL 4 MG ORAL TABS 1 tab at bedtime RISPERIDONE 29118332596 Active Samantha Stephan RMA Active LEVAQUIN 500 MG TABS 1 daily for infection LEVOFLOXACIN 31855911298 Active Suzan Boo APRN Active TESSALON PERLES 100 MG CAPS 1 three times a day as needed for cough BENZONATATE 39228504420 Active Suzan Boo APRN Active ZOFRAN 4 MG TABS 1 po q6hr PRN Nausea ONDANSETRON HCL No Longer Active Suzan Boo APRN Active FLUTICASONE PROPIONATE 50 MCG/ACT SUSP 2 sprays each nostril daily before bed. FLUTICASONE PROPIONATE 33514680329 No Longer Active Suzan Boo APRN Active ASPIRIN 325 MG ORAL TABS 1 tab q.d ASPIRIN 66370541729 No Longer Active Suzan Boo APRN Active HALOPERIDOL 10 MG ORAL TABS 1 tab q.d HALOPERIDOL 87439067354 No Longer Active Suzan Boo APRN Active GUAIFENESIN-CODEINE 100-10 MG/5ML SYRP 5ml every 4 to 6 hours as needed for cough GUAIFENESIN-CODEINE 65950112719 No Longer Active Suzan Boo APRN Active ZITHROMAX Z-EARNEST 250 MG TABS 2 today and then 1 daily for 4 days AZITHROMYCIN 23878777925 No Longer Active Suzan Boo APRN Active PREDNISONE 10 MG TABS 2 daily for 5 days then 1 daily for 5 days PREDNISONE 07229764332 Active Suzan Boo APRN Active CLONAZEPAM 1 MG ORAL TABS 1 twice a day and an additional 1 tablet every other day as needed for pseudoseizures or anxiety CLONAZEPAM 55627674319 Active Ahmet Carbajal MD Active HYDROCODONE-ACETAMINOPHEN 5-325 MG ORAL TABS 1 tab two times a day HYDROCODONE-ACETAMINOPHEN 62365427831 No Longer Active Ahmet Carbajal MD Active LAMICTAL 100 MG ORAL TABS 1 tab 2 times qd. LAMOTRIGINE 12607640655 Active Ahmet Carbajal MD Active PREDNISONE 20 MG TABS 2 daily for 5 days then 1 daily for 5 days PREDNISONE 64263169303 No Longer Active Ahmet Carbajal MD Active FLUTICASONE PROPIONATE 50 MCG/ACT SUSP 1 to 2 sprays each nostril daily for allergies FLUTICASONE PROPIONATE 85263424708 Active Tila Valenzuela Active BENADRYL 25 MG CAP 4 po at bedtime for insomnia DIPHENHYDRAMINE HCL 89582211324 No Longer Active Ahmet Carbajal MD Active ADVAIR DISKUS 250-50 MCG/DOSE INH AEPB 1 puff twice a day for asthma FLUTICASONE-SALMETEROL 98107400028 No Longer Active Ahmet Carbajal MD Active KLONOPIN 1 MG ORAL TABS 1 tab po TID CLONAZEPAM 38546035437 No Longer Active Ahmet Carbajal MD Active ABILIFY MAINTENA 400 MG IM SUSR 400mg injection every 26 days ARIPIPRAZOLE 16449369652 No Longer Active Ahmet Carbajal MD Active TRAMADOL HCL 50 MG TABS 1/2-1 tab TID PRN TRAMADOL HCL 82870678640 No Longer Active Ahmet Carbajal MD Active BACTRIM DS 800-160 MG TABS 1 twice a day SULFAMETHOXAZOLE- TRIMETHOPRIM 81384814928 No Longer Active Ahmet Carbajal MD Active PROAIR HFA 108 (90 BASE) MCG/ACT AERS 2 puffs four times a day as needed 2015 ALBUTEROL SULFATE 46624594447 Active Ahmet Carbajal MD Active EQ NICOTINE 21 MG/24HR TRANS PT24 Apply daily to stop smoking NICOTINE 24938531565 Active Ahmet Carbajal MD Active MONISTAT 7 COMBO PACK WOODROW 100 & 2 MG-% (9GM) VAG KIT 1 applicatorful per vagina q pm x 7 MICONAZOLE NITRATE 78153374656 No Longer Active Ahmet Carbajal MD Active FLAGYL 500 MG TAB 1 tablet by mouth bid METRONIDAZOLE 74665553596 No Longer Active Ahmet Carbajal MD Active OXYCODONE HCL ER 10 MG ORAL T12A 1/2 tab by mouth every 4 hours prn OXYCODONE HCL 88563055596 No Longer Active Ahmet Carbajal MD Active METHYLPREDNISOLONE 4 MG ORAL TABS po daily METHYLPREDNISOLONE 24641200451 No Longer Active Ahmet Carbajal MD Active LEVOFLOXACIN 500 MG ORAL TABS po daily LEVOFLOXACIN 93121257316 No Longer Active Ahmet Carbajal MD Active VIIBRYD 10 MG ORAL TABS Take 1 tablet once a day VILAZODONE HCL 55628243721 No Longer Active Ahmet Carbajal MD Active TOPAMAX 50 MG ORAL TABS 1 tab twice daily TOPIRAMATE 37991397886 No Longer Active Ahmet Carbajal MD Active DICLOFENAC SODIUM 50 MG TBEC 1 tablet by mouth four times daily PRN Pain 2015 DICLOFENAC SODIUM 88247119087 No Longer Active Ahmet Carbajal MD Active ADZENYS XR-ODT 6.3 MG ORAL TBED 1 tab po daily for ADHD AMPHETAMINE 16432787071 No Longer Active Ahmet Carbajal MD Active CHANTIX 1 MG TABS 1 twice a day to help quit smoking VARENICLINE TARTRATE 28750247188 No Longer Active Dipika Burgos MD Active CHANTIX STARTING MONTH EARNEST 0.5 MG X 11 & 1 MG X 42 TABS take as directed 2015 VARENICLINE TARTRATE 50981512458 No Longer Active Dipika Burgos MD Active TESSALON PERLES 100 MG CAP 1 to 2 tablets by mouth 3 times daily as needed for cough BENZONATATE 06914036859 No Longer Active Luigi Martínez APRN Active IMITREX 50 MG ORAL TABS 0.5 po x 1 PRN Headache. May repeat dose x 1 in 2 hours if needed SUMATRIPTAN SUCCINATE 07577861251 Active Ahmet Carbajal MD Active HYDROCODONE-ACETAMINOPHEN 5-325 MG TABS 1 to 2 four times a day as needed for pain use until can be seen by specialist HYDROCODONE- ACETAMINOPHEN 36820845040 No Longer Active Vishal Hui MD Active PROAIR HFA 108 (90 BASE) MCG/ACT AERS 2 puffs four times a day as needed 2015 ALBUTEROL SULFATE 75341107779 No Longer Active Vishal Hui MD Active PREDNISONE 20 MG TABS 2 daily for 5 days then 1 daily for 5 days PREDNISONE 43402877002 No Longer Active Vishal Hui MD Active ZITHROMAX Z-EARNEST 250 MG TABS 2 today and then 1 daily for 4 days AZITHROMYCIN 63788142673 No Longer Active Vishal Hui MD Active DICLOFENAC POTASSIUM TABS Take 1 tablet twice a day (pt. is not sure of the dose.) DICLOFENAC POTASSIUM TABS 63755952218 No Longer Active Vishal Hui MD Active VERAPAMIL HCL ER 120 MG ORAL CR-TABS Take 1 tablet by mouth twice a day. VERAPAMIL HCL 96823801198 Active Vishal Hui MD Active FLAGYL 500 MG TAB 1 tablet by mouth bid METRONIDAZOLE 50370832480 No Longer Active Vishal Hui MD Active VALIUM 5 MG TAB Take 1-2 tablets daily DIAZEPAM 15546347383 No Longer Active Fabiola Alex [employer] WOODWORKER Active METOPROLOL TARTRATE 25 MG ORAL TABS 1/2 tablet twice daily for heart rate and blood pressure METOPROLOL TARTRATE 55330962217 No Longer Active Fabiola Johnson APRN Active MIRALAX ORAL POWD 17GMS DAILY IN WATER POLYETHYLENE GLYCOL 3350 32962181073 Active TAMARA Casey Active MIRALAX PACK 1 po qd PRN Constipation POLYETHYLENE GLYCOL 3350 13428970304 No Longer Active Ahmet Carbajal MD Active MINIPRESS 2 MG CAPS 4 cap po at night PRAZOSIN HCL 32144576612 No Longer Active Ahmet Carbajal MD Active PIROXICAM 20 MG CAPS 1 cap po qd PRN Pain PIROXICAM 79520105163 No Longer Active Ahmet Carbajal MD Active TRAMADOL HCL 50 MG TABS 1-2 po TID PRN Pain TRAMADOL HCL 65026944974 No Longer Active Ahmet Carbajal MD Active METOPROLOL TARTRATE 50 MG TAB 1 po bid METOPROLOL TARTRATE 01237117485 No Longer Active Ahmet Carbajal MD Active ABILIFY 15 MG ORAL TABS 1 tab daily ARIPIPRAZOLE 09416128904 No Longer Active Ahmet Carbajal MD Active PROZAC 20 MG ORAL CAPS 1 tab daily FLUOXETINE HCL 33993600266 No Longer Active Ahmet Carbajal MD Active AMBIEN 5 MG ORAL TABS 1 tab at bedtime ZOLPIDEM TARTRATE 48315628136 No Longer Active Ahmet Carbajal MD Active PREDNISONE 20 MG TAB 2 tabs daily for 4 days, 1 tab daily for 4 days, 1/2 tab daily for 4 days PREDNISONE 33919177705 No Longer Active Ahmet Carbajal MD Active KEFLEX 500 MG CAP 1 po TID x 10 days CEPHALEXIN 66478542474 No Longer Active Vishal Hui MD Active SAPHRIS 5 MG SUBL 1 po bid ASENAPINE MALEATE 00534296115 No Longer Active Pacollina Mauricio AIRPLANE WOODWORKER Active LATUDA 80 MG TABS Take one by mouth daily LURASIDONE HCL 53483071634 No Longer Active Jillina Frazell AIRPLANE WOODWORKER Active AMLODIPINE BESYLATE 5 MG TABS 1 tablet by mouth daily AMLODIPINE BESYLATE 39268905598 No Longer Active Jillina Mauricio AIRPLANE WOODWORKER Active AMITRIPTYLINE HCL 100 MG TAB one at hs AMITRIPTYLINE HCL 79778495196 No Longer Active Vishal Hui MD Active TRAZODONE HCL 100 MG TAB take 1 at bedtime TRAZODONE HCL 86781745263 No Longer Active Vishal Hui MD Active VYVANSE 40 MG CAPS 1 daily, LISDEXAMFETAMINE DIMESYLATE 03928210931 No Longer Active Vishal Hui MD Active IBUPROFEN 600 MG TAB 1 po TID PRN IBUPROFEN 06432358914 No Longer Active Vishal Hui MD Active PROZAC 20 MG CAP Take one by mouth daily FLUOXETINE HCL 31995237505 No Longer Active Vishal Hui MD Active BACTRIM DS 800-160 MG TABS 1 pill by mouth twice daily SULFAMETHOXAZOLE-TRIMETHOPRIM 48897592740 No Longer Active Sahara Rodriguez MD PhD Active DIFLUCAN 150 MG TAB 1 tablet by mouth daily FLUCONAZOLE 02017091004 No Longer Active Vishal uHi MD Active TIZANIDINE HCL 4 MG TABS 1 po q6hr PRN Muscle Spasm/Back Pain TIZANIDINE HCL 40515899917 Active Vishal Hui MD Active CLINDAMYCIN HCL 150 MG CAPS 1 four times a day CLINDAMYCIN HCL 83776113927 No Longer Active Neeraj Collins MD Active KEFLEX 500 MG ORAL CAPS 1 cap QID by mouth CEPHALEXIN 25715259922 No Longer Active Neeraj Collins MD Active DIFLUCAN 150 MG TABS 1 pill every other day x 2 doses FLUCONAZOLE 97905308146 No Longer Active Sahara Rodriguez MD PhD Active MELATONIN 3 MG CAPS 2 po q hs MELATONIN 69640960909 No Longer Active Sahara Rodriguez MD PhD Active MULTIVITAMINS CAPS Take one by mouth daily MULTIPLE VITAMIN 46588070647 No Longer Active Sahara Rodriguez MD PhD Active BACTRIM DS 800-160 MG TAB 1 tab by mouth twice daily TRIMETHOPRIM-SULFAMETHOXAZOLE 40562277817 No Longer Active Sahara Rodriguez MD PhD Active [facility] PROBIOTIC ORAL CHEW 2 daily po PROBIOTIC PRODUCT 66813969120 No Longer Active Sahara Rodriguez MD PhD Active BACTRIM DS 800-160 MG TABS 1 po BID x 7 days SULFAMETHOXAZOLE-TRIMETHOPRIM 15478010403 No Longer Active Vishal Hui MD Active CHANTIX STARTING MONTH EARNEST 0.5 MG X 11 & 1 MG X 42 TABS 0.5mg daily for 3 days , then 0.5mg BID for 4 days, then 1mg BID VARENICLINE TARTRATE 41309297065 No Longer Active TAMARA Gray Active VERAPAMIL HCL CR 120 MG TAB CR 1 po bid VERAPAMIL HCL 20565197962 No Longer Active Vishal Hui MD Active METOPROLOL SUCCINATE 50 MG TB24 1 tablet by mouth daily METOPROLOL SUCCINATE 47293411291 No Longer Active Vishal Hui MD Active SAPHRIS 10 MG SUBL 1 tab po bid ASENAPINE MALEATE 72462895470 No Longer Active Vishal Hui MD Active LISINOPRIL 20 MG TABS 1 tab po qd LISINOPRIL 45712372725 No Longer Active Vishal Hui MD Active LATUDA 20 MG TABS Take one by mouth daily LURASIDONE HCL 65852109842 No Longer Active Vishal Hui MD Active TRAZODONE HCL 50 MG TABS 1/2 tab po qd prn for anxiety TRAZODONE HCL 40260509363 No Longer Active Vishal Hui MD Active OMEPRAZOLE 20 MG TBEC 1 po q a.m. 30min prior to first food intake OMEPRAZOLE 52359155616 Active TAMARA Casey Active RANITIDINE HCL 150 MG CAPS 1 twice a day RANITIDINE HCL 52453377220 Active Luigi Martínez APRN Active LINZESS 290 MCG CAPS Take one by mouth daily LINACLOTIDE 74346186653 No Longer Active Vishal Hui MD Active SAPHRIS 5 MG SUBL 1 tab po qd ASENAPINE MALEATE 61551815754 No Longer Active Vishal Hui MD Active ZALEPLON 10 MG CAPS 1 cap po every other night ZALEPLON 95238077234 No Longer Active Vishal Hui MD Active LYRICA 50 MG CAPS 1 tab po TID PREGABALIN 25317658635 No Longer Active Vishal Hui MD Active LORATADINE 10 MG TABS 1 tab po qd LORATADINE 94735292088 No Longer Active Vishal Hui MD Active VERAPAMIL HCL ER 180 MG CR-TABS 1 tab po bid VERAPAMIL HCL 78356467194 No Longer Active Vishal Hui MD Active MIRALAX POWD 1 capfull once daily POLYETHYLENE GLYCOL 3350 13603308390 No Longer Active Vishal Hui MD Active PREDNISONE 20 MG TABS 1 tab po qd PREDNISONE 27360215996 No Longer Active Renzo Thornton DO Active LEVOFLOXACIN 500 MG TABS 1 tab po qd LEVOFLOXACIN 15348154063 No Longer Active Renzo Thornton DO Active BUSPIRONE HCL 15 MG TABS 1 tab po TID BUSPIRONE HCL 73434588333 No Longer Active Renzo Thornton DO Active BENZTROPINE MESYLATE 1 MG TABS 1 tab po qd BENZTROPINE MESYLATE 48028890494 No Longer Active Renzo Thornton DO Active ATENOLOL 25 MG TABS 1 tab po qd ATENOLOL 49423337418 No Longer Active Renzo Thornton DO Active ESCITALOPRAM OXALATE 20 MG TABS 1 tab po qd ESCITALOPRAM OXALATE 08612517258 No Longer Active Renzo Thornton DO Active ADVAIR DISKUS 250-50 MCG/DOSE AEPB 1 puff BID FLUTICASONE-SALMETEROL 75516177033 No Longer Active Renzo Thornton DO Active PREDNISONE 20 MG TAB 2 tabs daily for 3 days, 1 tab daily for 3 days, 1/2 tab daily for 2 days PREDNISONE 58689891122 No Longer Active Vishal Hui MD Active CEFDINIR 300 MG CAPS by mouth twice a day CEFDINIR 36219806718 No Longer Active Vishal Hui MD Active LANSOPRAZOLE 30 MG CPDR 1 cap po qd LANSOPRAZOLE 49190072132 No Longer Active Vishal Hui MD Active BACLOFEN 20 MG TABS 1 tab po tid BACLOFEN 73919336917 No Longer Active Vishal Hui MD Active ADVAIR DISKUS 250-50 MCG/DOSE AEPB 1 puff BID ADVAIR DISKUS 250-50 MCG/DOSE AEPB FLUTICASONE-SALMETEROL Inactive ESCITALOPRAM OXALATE 20 MG TABS 1 tab po qd ESCITALOPRAM OXALATE 20 MG TABS 409414 ESCITALOPRAM OXALATE Inactive ATENOLOL 25 MG TABS 1 tab po qd ATENOLOL 25 MG TABS 914496 ATENOLOL Inactive BENZTROPINE MESYLATE 1 MG TABS 1 tab po qd BENZTROPINE MESYLATE 1 MG TABS 694142 BENZTROPINE MESYLATE Inactive BUSPIRONE HCL 15 MG TABS 1 tab po TID BUSPIRONE HCL 15 MG TABS 818730 BUSPIRONE HCL Inactive LEVOFLOXACIN 500 MG TABS 1 tab po qd LEVOFLOXACIN 500 MG TABS 474553 LEVOFLOXACIN Inactive PREDNISONE 20 MG TABS 1 tab po qd PREDNISONE 20 MG TABS 397856 PREDNISONE Inactive MIRALAX POWD 1 capfull once daily MIRALAX POWD 368322 POLYETHYLENE GLYCOL 3350 Inactive VERAPAMIL HCL ER 180 MG CR-TABS 1 tab po bid VERAPAMIL HCL ER 180 MG CR-TABS VERAPAMIL HCL Inactive LORATADINE 10 MG TABS 1 tab po qd LORATADINE 10 MG TABS 731924 LORATADINE Inactive LYRICA 50 MG CAPS 1 tab po TID LYRICA 50 MG CAPS PREGABALIN Inactive ZALEPLON 10 MG CAPS 1 cap po every other night ZALEPLON 10 MG CAPS 324815 ZALEPLON Inactive SAPHRIS 5 MG SUBL 1 tab po qd SAPHRIS 5 MG SUBL ASENAPINE MALEATE Inactive TRAZODONE HCL 50 MG TABS 1/2 tab po qd prn for anxiety TRAZODONE HCL 50 MG TABS 290737 TRAZODONE HCL Inactive LATUDA 20 MG TABS Take one by mouth daily LATUDA 20 MG TABS LURASIDONE HCL Inactive LISINOPRIL 20 MG TABS 1 tab po qd LISINOPRIL 20 MG TABS 998135 LISINOPRIL Inactive SAPHRIS 10 MG SUBL 1 [...] twice daily BACTRIM DS 800-160 MG TAB 660485 TRIMETHOPRIM-SULFAMETHOXAZOLE Inactive MULTIVITAMINS CAPS Take one by mouth daily MULTIVITAMINS CAPS MULTIPLE VITAMIN Inactive MELATONIN 3 MG CAPS 2 po q hs MELATONIN 3 MG CAPS 004650 MELATONIN Inactive KEFLEX 500 MG ORAL CAPS 1 cap QID by mouth KEFLEX 500 MG ORAL CAPS 315157 CEPHALEXIN Inactive CLINDAMYCIN HCL 150 MG CAPS 1 four times a day CLINDAMYCIN HCL 150 MG CAPS 301852 CLINDAMYCIN HCL Inactive DIFLUCAN 150 MG TAB 1 tablet by mouth daily DIFLUCAN 150 MG TAB 161487 FLUCONAZOLE Inactive PROZAC 20 MG CAP Take one by mouth daily PROZAC 20 MG CAP 071712 FLUOXETINE HCL Inactive IBUPROFEN 600 MG TAB 1 po TID PRN IBUPROFEN 600 MG TAB 486236 IBUPROFEN Inactive VYVANSE 40 MG CAPS 1 daily, VYVANSE 40 MG CAPS LISDEXAMFETAMINE DIMESYLATE Inactive TRAZODONE HCL 100 MG TAB take 1 at bedtime TRAZODONE HCL 100 MG TAB 329697 TRAZODONE HCL Inactive AMITRIPTYLINE HCL 100 MG TAB one at hs AMITRIPTYLINE HCL 100 MG TAB 670190 AMITRIPTYLINE HCL Inactive AMLODIPINE BESYLATE 5 MG TABS 1 tablet by mouth daily AMLODIPINE BESYLATE 5 MG TABS 698188 AMLODIPINE BESYLATE Inactive LATUDA 80 MG TABS Take one by mouth daily LATUDA 80 MG TABS LURASIDONE HCL Inactive SAPHRIS 5 MG SUBL 1 po bid SAPHRIS 5 MG SUBL ASENAPINE MALEATE Inactive PREDNISONE 20 MG TAB 2 tabs daily for 4 days, 1 tab daily for 4 days, 1/2 tab daily for 4 days PREDNISONE 20 MG TAB 790117 PREDNISONE Inactive AMBIEN 5 MG ORAL TABS 1 tab at bedtime AMBIEN 5 MG ORAL TABS 321343 ZOLPIDEM TARTRATE Inactive PROZAC 20 MG ORAL CAPS 1 tab daily PROZAC 20 MG ORAL CAPS 307105 FLUOXETINE HCL Inactive ABILIFY 15 MG ORAL TABS 1 tab daily ABILIFY 15 MG ORAL TABS 308562 ARIPIPRAZOLE Inactive METOPROLOL TARTRATE 50 MG TAB 1 po bid METOPROLOL TARTRATE 50 MG TAB 538530 METOPROLOL TARTRATE Inactive TRAMADOL HCL 50 MG TABS 1-2 po TID PRN Pain TRAMADOL HCL 50 MG TABS 966270 TRAMADOL HCL Inactive PIROXICAM 20 MG CAPS 1 cap po qd PRN Pain PIROXICAM 20 MG CAPS 074219 PIROXICAM Inactive MINIPRESS 2 MG CAPS 4 cap po at night MINIPRESS 2 MG CAPS 786690 PRAZOSIN HCL Inactive MIRALAX PACK 1 po qd PRN Constipation MIRALAX PACK 919429 POLYETHYLENE GLYCOL 3350 Inactive METOPROLOL TARTRATE 25 MG ORAL TABS 1/2 tablet twice daily for heart rate and blood pressure METOPROLOL TARTRATE 25 MG ORAL TABS 456248 METOPROLOL TARTRATE Inactive VALIUM 5 MG TAB Take 1-2 tablets daily VALIUM 5 MG TAB 804158 DIAZEPAM Inactive FLAGYL 500 MG TAB 1 tablet by mouth bid FLAGYL 500 MG TAB 675325 METRONIDAZOLE Inactive DICLOFENAC POTASSIUM TABS Take 1 tablet twice a day (pt. is not sure of the dose.) DICLOFENAC POTASSIUM TABS DICLOFENAC POTASSIUM TABS Inactive ZITHROMAX Z-EARNEST 250 MG TABS 2 today and then 1 daily for 4 days ZITHROMAX Z-EARNEST 250 MG TABS 1507975 AZITHROMYCIN Inactive PREDNISONE 20 MG TABS 2 daily for 5 days then 1 daily for 5 days PREDNISONE 20 MG TABS 418985 PREDNISONE Inactive PROAIR HFA 108 (90 BASE) MCG/ACT AERS 2 puffs four times a day as needed 2015 PROAIR HFA 108 (90 BASE) MCG/ACT AERS ALBUTEROL SULFATE Inactive HYDROCODONE-ACETAMINOPHEN 5-325 MG TABS 1 to 2 four times a day as needed for pain use until can be seen by specialist HYDROCODONE- ACETAMINOPHEN 5-325 MG TABS 786794 HYDROCODONE-ACETAMINOPHEN Inactive TESSALON PERLES 100 MG CAP 1 to 2 tablets by mouth 3 times daily as needed for cough TESSALON PERLES 100 MG CAP 117837 BENZONATATE Inactive CHANTIX STARTING MONTH EARNEST 0.5 [...] Pain 2015 DICLOFENAC SODIUM 50 MG TBEC 299631 DICLOFENAC SODIUM Inactive TOPAMAX 50 MG ORAL TABS 1 tab twice daily TOPAMAX 50 MG ORAL TABS 206325 TOPIRAMATE Inactive VIIBRYD 10 MG ORAL TABS Take 1 tablet once a day VIIBRYD 10 MG ORAL TABS VILAZODONE HCL Inactive LEVOFLOXACIN 500 MG ORAL TABS po daily LEVOFLOXACIN 500 MG ORAL TABS 322010 LEVOFLOXACIN Inactive METHYLPREDNISOLONE 4 MG ORAL TABS po daily METHYLPREDNISOLONE 4 MG ORAL TABS 609173 METHYLPREDNISOLONE Inactive OXYCODONE HCL ER 10 MG ORAL T12A 1/2 tab by mouth every 4 hours prn OXYCODONE HCL ER 10 MG ORAL T12A OXYCODONE HCL Inactive FLAGYL 500 MG TAB 1 tablet by mouth bid FLAGYL 500 MG TAB 287152 METRONIDAZOLE Inactive MONISTAT 7 COMBO PACK WOODROW 100 & 2 MG-% (9GM) VAG KIT 1 applicatorful per vagina q pm x 7 MONISTAT 7 COMBO PACK WOODROW 100 & 2 MG-% (9GM) VAG KIT MICONAZOLE NITRATE Inactive BACTRIM DS 800-160 MG TABS 1 twice a day BACTRIM DS 800-160 MG TABS 761743 SULFAMETHOXAZOLE-TRIMETHOPRIM Inactive TRAMADOL HCL 50 MG TABS 1/2-1 tab TID PRN TRAMADOL HCL 50 MG TABS 690879 TRAMADOL HCL Inactive ABILIFY MAINTENA 400 MG IM SUSR 400mg injection every 26 days ABILIFY MAINTENA 400 MG IM SUSR ARIPIPRAZOLE Inactive KLONOPIN 1 MG ORAL TABS 1 tab po TID KLONOPIN 1 MG ORAL TABS 335905 CLONAZEPAM Inactive ADVAIR DISKUS 250-50 MCG/DOSE INH AEPB 1 puff twice a day for asthma ADVAIR DISKUS 250-50 MCG/DOSE INH AEPB FLUTICASONE- SALMETEROL Inactive BENADRYL 25 MG CAP 4 po at bedtime for insomnia BENADRYL 25 MG CAP DIPHENHYDRAMINE HCL Inactive PREDNISONE 20 MG TABS 2 daily for 5 days then 1 daily for 5 days PREDNISONE 20 MG TABS 665043 PREDNISONE Inactive HYDROCODONE-ACETAMINOPHEN 5-325 MG ORAL TABS 1 tab two times a day HYDROCODONE-ACETAMINOPHEN 5-325 MG ORAL TABS 905355 HYDROCODONE-ACETAMINOPHEN Inactive ZITHROMAX Z-EARNEST 250 MG TABS 2 today and then 1 daily for 4 days ZITHROMAX Z-EARNEST 250 MG TABS 1232175 AZITHROMYCIN Inactive GUAIFENESIN-CODEINE 100-10 MG/5ML SYRP 5ml every 4 to 6 hours as needed for cough GUAIFENESIN-CODEINE 100-10 MG/5ML SYRP 924670 GUAIFENESIN-CODEINE Inactive HALOPERIDOL 10 MG ORAL TABS 1 tab q.d HALOPERIDOL 10 MG ORAL TABS 347574 HALOPERIDOL Inactive ASPIRIN 325 MG ORAL TABS 1 tab q.d ASPIRIN 325 MG ORAL TABS 100514 ASPIRIN Inactive FLUTICASONE PROPIONATE 50 MCG/ACT SUSP 2 sprays each nostril daily before bed. FLUTICASONE PROPIONATE 50 MCG/ACT SUSP 0832027 FLUTICASONE PROPIONATE Inactive ZOFRAN 4 MG TABS 1 po q6hr PRN Nausea ZOFRAN 4 MG TABS 864757 ONDANSETRON HCL Inactive CEFDINIR 300 MG CAPS by mouth twice a day CEFDINIR 300 MG CAPS 123150 CEFDINIR Inactive PREDNISONE 20 MG TAB 2 tabs daily for 3 days, 1 tab daily for 3 days, 1/2 tab daily for 2 days PREDNISONE 20 MG TAB 388470 PREDNISONE Inactive BACTRIM DS 800-160 MG TABS 1 po BID x 7 days BACTRIM DS 800-160 MG TABS 19820521 SULFAMETHOXAZOLE-TRIMETHOPRIM Inactive DIFLUCAN 150 MG TABS 1 pill every other day x 2 doses DIFLUCAN 150 MG TABS 552160 FLUCONAZOLE Inactive BACTRIM DS 800-160 MG TABS 1 pill by mouth twice daily BACTRIM DS 800-160 MG TABS 19820521 SULFAMETHOXAZOLE-TRIMETHOPRIM Inactive KEFLEX 500 MG CAP 1 po TID x 10 days KEFLEX 500 MG CAP 070789 CEPHALEXIN Inactive Advance Directives Directive Description Start [...] % 11.0-15.0 platelet count 443 THOUSAND/UL 10*3/mm3 916-102 1782/03/01 mean platelet volume 8.2 fL 7.5-12.5 Lab [...] 369 10^3/MM^3 10*3/mm3 142-424 Lab Report: Chlamydia/GC APTIMA/[id number] - Lab chlamydia DNA probe NOT DETECTED NOT DETECTED Lab Report: Chlamydia/GC APTIMA/[id number] - Microbiology Neisseria gonorrhoeae DNA probe NOT DETECTED NOT DETECTED Lab Report: Chlamydia/GC APTIMA/92106, Urinalysis, Complete, with Reflex ... - Lab chlamydia DNA probe NOT DETECTED NOT DETECTED Lab Report: Chlamydia/GC APTIMA/81694, Urinalysis, Complete, with Reflex ... - Microbiology Neisseria gonorrhoeae DNA probe NOT DETECTED NOT DETECTED Lab Report: Chlamydia/GC APTIMA/[id number], Urinalysis, Complete, with Reflex ... - Urinalysis microalbumin/total urine volume 2 mg/L Units converted. See lab report for original value. microalbumin/creatinine ratio, urine 9 MCG/MG CREAT mg/L <30 Lab Report: Comp. Metabolic Panel - Chemistry carbon dioxide, venous blood 33.7 mmol/L 21.0-32.0 potassium, serum 5.0 mmol/L 3.5-5.2 chloride, serum 103 mmol/L 98-107 blood glucose 80 mg/dL 65-110 urea nitrogen, blood 13 mg/dL 7-18 calcium, serum 9.4 mg/dL 8.5-10.1 aspartate aminotransferase (SGOT), serum 28 U/L 15-37 alanine aminotransferase (SGPT), serum 49 U/L -78 creatinine, serum 0.75 mg/dL 0.55-1.30 urea nitrogen, blood 8 mg/dL 7-18 sodium, serum 140 mmol/L 899-392 6342/08/08 creatinine, serum 0.88 mg/dL 0.55-1.30 alanine aminotransferase (SGPT), serum 54 U/L 12-78 aspartate aminotransferase (SGOT), serum 29 U/L 15-37 calcium, serum 9.7 mg/dL 8.5-10.1 bilirubin, serum, total 0.30 mg/dL 0.00-1.00 bilirubin, serum, total 0.30 mg/dL 0.00-1.00 blood glucose 95 mg/dL 65-110 chloride, serum 105 mmol/L 98-107 potassium, serum 4.0 mmol/L 3.5-5.2 carbon dioxide, venous blood 27.6 mmol/L 21.0-32.0 sodium, serum 142 mmol/L 136-145 Lab Report: UADIP W/MICRO, AUTO - Chemistry [...] mg/dL Encounters Code Encounter Date Provider Facility [id number] Level 3 Est. Patient 15:28:23 GAGE DESIGNER Suzan Boo [facility] CPT-79540 Level 4 Est. Patient 10:20:54 GAGE DESIGNER Suzan Boo [facility] [place] CPT-03499 Level 3 Est. Patient 11:47:37 GAGE DESIGNER Ahmet Carbajal MD [facility] CPT-13021 Level 3 Est. Patient 10:40:11 GAGE DESIGNER Ahmet Carbajal MD [facility] CPT-67996 Level 3 Est. Patient 15:07:06 GAGE DESIGNER Neeraj Collins MD [facility] CPT-02434 Level 4 Est. Patient 14:45:00 GAGE DESIGNER Ahmet Carbajal MD [facility] CPT-25820 Level 3 Est. Patient 13:59:59 CDT Luigi Martíenz [facility] CPT-86528 Level 3 Est. Patient 18:18:53 CDT Neeraj Collins MD [facility] CPT-10892 Level 3 Est. Patient 15:50:44 CDT Vishal Hui MD [facility] CPT-36288 Level 3 Est. Patient 11:36:17 CDT Ahmet Carbajal MD [facility] CPT-50591 Level 3 Est. Patient 13:29:16 CDT Vishal Hui MD [facility] CPT-49539 Level 3 Est. Patient 14:27:52 CDT Neeraj Collins MD [facility] CPT-05569 Level 3 Est. Patient 08:56:03 CDT Luigi Martínez [facility] CPT-09579 Level 4 Est. Patient 12:11:48 CDT Faboila Johnson APRN [facility] CPT-87411 Level 3 New Patient 16:53:37 CDT Albert Caldera MD [facility] CPT-70987 Level 3 Est. Patient 11:25:49 CDT Renzo Thornton DO [facility] CPT-84000 Level 3 Est. Patient 15:22:01 CDT Ahmet Carbajal MD [facility] CPT-28844 Level 4 Est. Patient 09:00:51 [employer]AGE DESIGNER Vishal Hui MD [facility] CPT-01602 Level 3 Est. Patient 11:37:33 GAGE DESIGNER Vishal Hui MD [facility] CPT-54107 Level 3 Est. Patient 08:41:09 GAGE DESIGNER Vishal Hui MD [facility] CPT-72793 Level 4 Est. Patient 10:19:35 GAGE DESIGNER Vishal Hui MD [facility] CPT-43856 Level 3 Est. Patient 13:35:45 CDT Vishal Hui MD [facility] CPT-17104 Level 4 Est. Patient 10:08:37 CDT Vishal Hui MD [facility] CPT-87597 Level 3 Est. Patient 11:22:10 CDT Vishal Hui MD [facility] CPT-96062 Level 3 Est. Patient 11:03:32 CDT Sahara Rodriguez MD PhD [facility] CPT-46385 Level 3 Est. Patient 09:41:35 CDT Vishal Hui MD [facility] CPT-83833 Level 3 Est. Patient 12:00:41 CDT Neeraj Collins MD [facility] CPT-40145 Level 3 Est. Patient 09:16:24 CDT Vishal Hui MD [facility] CPT-90457 Level 4 Est. Patient 13:59:09 CDT Neeraj Collins MD [facility] CPT-54456 Level 3 Est. Patient 15:19:43 CDT [facility] CPT-42361 Level 3 Est. Patient 18:10:26 CDT Sahara Rodriguez MD [facility] CPT-87154 Level 3 Est. Patient 14:49:50 CDT Vishal Hui MD [facility] CPT-84612 Level 4 Est. Patient 18:41:46 CDT Neeraj Collins MD [facility] CPT-28740 Level 4 Est. Patient 09:18:38 GAGE DESIGNER Vishal Hui MD [facility] CPT-40393 Level 3 Est. Patient 14:43:55 GAGE DESIGNER Vishal Hui MD [facility] CPT-80906 Level 3 Est. Patient 15:26:33 GAGE DESIGNER Sahara Rodriguez MD PhD [facility] CPT-61772 Level 3 Est. Patient 10:32:14 GAGE DESIGNER Vishal Hui MD [facility] CPT-63520 Level 3 Est. Patient 15:12:52 GAGE DESIGNER Vishal Hui MD [facility] CPT-61156 Level 4 Est. Patient 09:19:27 CDT Vishal Hui MD [facility] CPT-62005 Level 3 Est. Patient 15:53:00 CDT [facility] CPT-21807 Level 3 Est. Patient 15:50:30 CDT [facility] CPT-51448 Level 3 Est. Patient 16:55:24 CDT Vishal Hui MD [facility] Procedures Code Procedure Name Date Entry Date Standard Description CPT-G0439 [facility] Annual Wellness Exam 09:30:58 GAGE DESIGNER CPT-95848 TSH - LAB USE ONLY 08:50:26 GAGE DESIGNER CPT-27301 CBC - LAB USE ONLY 08:50:26 GAGE DESIGNER CPT-23582 Venipuncture Draw Fee 08:50:26 GAGE DESIGNER CPT-84790 Abx/Therapy Injection 17:34:30 GAGE DESIGNER CPT-87124 Nexplanon Removal with Reinsertion 14:09:32 CDT CPT-J7307 Nexplanon (Implant) 14:09:32 CDT CPT-OV Office Visit 14:09:32 CDT CPT-49884 UA w micro - LAB USE ONLY 16:21:13 CDT CPT-46498 Wet Mount - LAB USE ONLY 16:21:13 CDT CPT-46786 First Vx - Ix admin for Medicare patients 14:37:47 CDT CPT-99625 Fluzone Preservative Free Intramuscular Suspension 14:37 :47 CDT CPT-23411 Abx/Therapy Injection 13:54:22 CDT CPT-77519 Abx/Therapy Injection 08:47:09 CDT CPT-97045 Abx/Therapy Injection 13:29:56 CDT CPT-60674 Abx/Therapy Injection 08:36:16 CDT CPT-97186 Wet Mount - LAB USE ONLY 17:44:58 CDT CPT-72620 UA w micro - LAB USE ONLY 17:44:58 CDT CPT-78106 CMP - LAB USE ONLY 17:44:58 CDT CPT-92863 Venipuncture Draw Fee 17:44:58 CDT CPT-02486 Cervical Min 4V - XRAY USE ONLY 09:01:40 CDT CPT-62091 Chest 2V Frontal and Lat - XRAY USE ONLY 11:06:31 CDT CPT-28450 EKG Trac and Interp - XRAY USE ONLY 11:31:43 CDT 08/26 CPT-J3420 Vitamin B12 1000mcg (Cyanocobalamin) 08:10:26 GAGE DESIGNER 04/12 CPT-73315 Abx/Therapy Injection 08:10:26 GAGE DESIGNER CPT-G0438 Initial Annual Wellness Exam 19:01:01 GAGE DESIGNER CPT-J3420 Vitamin B12 1000mcg (Cyanocobalamin) 16:57:46 CDT 08/14 CPT-26319 Recombivax HB Injection Suspension 5 MCG/0.5ML 08:37:50 GAGE DESIGNER CPT-20332 Immunization Single Admin 08:37:50 GAGE DESIGNER CPT-J3420 Vitamin B12 1000mcg (Cyanocobalamin) 08:32:16 GAGE DESIGNER 03/11 CPT-09946 Abx/Therapy Injection 08:32:16 GAGE DESIGNER CPT-86306 Chest 2V Frontal and Lat 11:46:38 GAGE DESIGNER CPT-76330 Venipuncture Draw Fee 09:12:45 GAGE DESIGNER CPT-J3420 Vitamin B12 1000mcg (Cyanocobalamin) 08:50:15 GAGE DESIGNER 02/08 CPT-75889 Abx/Therapy Injection 08:50:15 GAGE DESIGNER CPT-Cryo Cryotherapy 10:19:35 GAGE DESIGNER CPT-000 Give Appropriate Flu Vaccine 09:22:16 CDT CPT-J3420 Vitamin B12 1000mcg (Cyanocobalamin) 19:08:57 CDT 01/11 CPT-65278 Abx/Therapy Injection 19:08:57 CDT CPT-J3420 Vitamin B12 1000mcg (Cyanocobalamin) 08:19:08 CDT 12/11 CPT-61153 Abx/Therapy Injection 08:19:08 CDT CPT-J3420 Vitamin B12 1000mcg (Cyanocobalamin) 14:48:00 CDT 11/09 CPT-54733 Abx/Therapy Injection 14:47:59 CDT CPT-J3420 Vitamin B12 1000mcg (Cyanocobalamin) 08:34:04 CDT 10/09 CPT-15183 Abx/Therapy Injection 08:34:04 CDT CPT-J3420 Vitamin B12 1000mcg (Cyanocobalamin) 09:18:52 CDT 09/11 CPT-42017 Abx/Therapy Injection 09:18:52 CDT CPT-J3420 Vitamin B12 1000mcg (Cyanocobalamin) 08:35:44 CDT 09/04 CPT-67621 Abx/Therapy Injection 08:35:44 CDT CPT-29893 Immunization Single Admin 11:07:16 CDT CPT-88599 Hepatitis B adult IM 11:07:16 CDT CPT-J3420 Vitamin B12 1000mcg (Cyanocobalamin) 11:00:49 CDT 08/28 CPT-J1040 Depo Medrol 80 mg (Methyl Prednisolone Acetate) 11:00: 49 CDT CPT-34598 Abx/Therapy Injection 11:00:49 CDT CPT-J1040 Depo Medrol 80 mg (Methyl Prednisolone Acetate) 09:16: 23 CDT CPT-J3420 Vitamin B12 1000mcg (Cyanocobalamin) 08:27:05 CDT 08/20 CPT-84850 Abx/Therapy Injection 08:27:05 CDT CPT-33357 Recombivax HB Injection Suspension 5 MCG/0.5ML 10:00:41 CDT CPT-61402 Administration single or combination vaccine inc oral 10 :00:41 CDT CPT-61643 Sono transvag pelvis non OB uterus ovaries cervix 16:36: 57 CDT CPT-90195 LS spine comp w obliq 09:50:55 GAGE DESIGNER CPT-28949 Abd compl w upright 09:50:55 GAGE DESIGNER CPT-J1100 Decadron 4mg (Dexamethasone) 15:51:24 GAGE DESIGNER CPT-J1030 Depo Medrol 40 mg (Methyl Prednisolone Acetate) 15:51: 24 GAGE DESIGNER CPT-30838 Abx/Therapy Injection 15:51:24 GAGE DESIGNER CPT-J1100 Decadron 4mg (Dexamethasone) 15:26:33 GAGE DESIGNER CPT-J1030 Depo Medrol 40 mg (Methyl Prednisolone Acetate) 15:26: 33 GAGE DESIGNER CPT-35304 Sono retroperitoneal complete kidneys and bladder 17:15: 30 CDT CPT-04133 Abd compl w upright 16:09:25 CDT CPT-J1100 Decadron 8mg (Dexamethasone) 17:07:57 CDT CPT-90650 Abx/Therapy Injection 17:07:57 CDT CPT-J1100 Decadron 8mg (Dexamethasone) 16:55:24 CDT CPT-45942 Chest 2V Frontal and Lat 16:32:44 CDT
--- OUTSIDE RECORDS SUMMARY | 2016-11-04 15:06 | XMS REPORT | Clinical Summary ---
Author Author Admin, Dereck Organization [employer] Address Unknown Phone Unavailable Allergies, Adverse Reactions, [...] uHi MD Asthma, unspecified Anxiety Disorder 300.00 Resolved [...] sites Morbid obesity 278.01 Active Juliet Kimbrough LIFT ELECTRICIAN Morbid obesity 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 Active Juliet Kimbrough LIFT ELECTRICIAN Dependence on other enabling machines and devices [...] breath Nocturnal hypoxia 799.02 Active Fabiola Johnson LIFT ELECTRICIAN Hypoxemia Neck pain 723.1 Resolved Vishal Hui [...] Active Ahmet Carbajal MD Generalized anxiety disorder Education Technician well woman exam V72.31 Active Suzan Boo LIFT ELECTRICIAN Routine gynecological examination Bronchitis, acute with mild bronchospasm 466.0 Active Suzan Boo LIFT ELECTRICIAN Acute bronchitis Fibrocystic breast changes 610.1 Active Suzan Boo APRN Diffuse cystic 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 Suzan Boo LIFT ELECTRICIAN Other specified conditions influencing health status Anxiety [...] SOLN 1 drop PRN eye spasms TROPICAMIDE 57236864720 Active Samantha Stephan RMA Active RISPERDAL 4 MG ORAL TABS 1 tab at bedtime RISPERIDONE 67781793452 Active Samantha Stephan RMA Active LEVAQUIN 500 MG TABS 1 daily for infection LEVOFLOXACIN 79769642988 Active Suzan Boo APRN Active TESSALON PERLES 100 MG CAPS 1 three times a day as needed for cough BENZONATATE 41610788183 Active Suzan Boo APRN Active ZOFRAN 4 MG TABS 1 po q6hr PRN Nausea ONDANSETRON HCL No Longer Active Suzan Boo APRN Active FLUTICASONE PROPIONATE 50 MCG/ACT SUSP 2 sprays each nostril daily before bed. FLUTICASONE PROPIONATE 52400619270 No Longer Active Suzan Boo APRN Active ASPIRIN 325 MG ORAL TABS 1 tab q.d ASPIRIN 79008182921 No Longer Active Suzan Boo APRN Active HALOPERIDOL 10 MG ORAL TABS 1 tab q.d HALOPERIDOL 68609758013 No Longer Active Suzan Boo APRN Active GUAIFENESIN-CODEINE 100-10 MG/5ML SYRP 5ml every 4 to 6 hours as needed for cough GUAIFENESIN-CODEINE 64921085075 No Longer Active Suzan Boo APRN Active ZITHROMAX Z-EARNEST 250 MG TABS 2 today and then 1 daily for 4 days AZITHROMYCIN 40758924131 No Longer Active Suzan Boo APRN Active PREDNISONE 10 MG TABS 2 daily for 5 days then 1 daily for 5 days PREDNISONE 42682395742 Active Suzan Boo APRN Active CLONAZEPAM 1 MG ORAL TABS 1 twice a day and an additional 1 tablet every other day as needed for pseudoseizures or anxiety CLONAZEPAM 63344227565 Active Ahmet aCrbajal MD Active HYDROCODONE-ACETAMINOPHEN 5-325 MG ORAL TABS 1 tab two times a day HYDROCODONE-ACETAMINOPHEN 07550796791 No Longer Active Ahmet Carbajal MD Active LAMICTAL 100 MG ORAL TABS 1 tab 2 times qd. LAMOTRIGINE 79592186929 Active Ahmet Carbajal MD Active PREDNISONE 20 MG TABS 2 daily for 5 days then 1 daily for 5 days PREDNISONE 27127184388 No Longer Active Ahmet Carbajal MD Active FLUTICASONE PROPIONATE 50 MCG/ACT SUSP 1 to 2 sprays each nostril daily for allergies FLUTICASONE PROPIONATE 93300497197 Active Tila Valenzuela Active BENADRYL 25 MG CAP 4 po at bedtime for insomnia DIPHENHYDRAMINE HCL 58444048263 No Longer Active Ahmet Carbajal MD Active ADVAIR DISKUS 250-50 MCG/DOSE INH AEPB 1 puff twice a day for asthma FLUTICASONE-SALMETEROL 76256348610 No Longer Active Ahmet Carbajal MD Active KLONOPIN 1 MG ORAL TABS 1 tab po TID CLONAZEPAM 52114694594 No Longer Active Ahmet Carbajal MD Active ABILIFY MAINTENA 400 MG IM SUSR 400mg injection every 26 days ARIPIPRAZOLE 69968080991 No Longer Active Ahmet Carbajal MD Active TRAMADOL HCL 50 MG TABS 1/2-1 tab TID PRN TRAMADOL HCL 84597260802 No Longer Active Ahmet Carbajal MD Active BACTRIM DS 800-160 MG TABS 1 twice a day SULFAMETHOXAZOLE- TRIMETHOPRIM 36711278204 No Longer Active Ahmet Carbajal MD Active PROAIR HFA 108 (90 BASE) MCG/ACT AERS 2 puffs four times a day as needed 2015 ALBUTEROL SULFATE 52261793578 Active Ahmet Carbajal MD Active EQ NICOTINE 21 MG/24HR TRANS PT24 Apply daily to stop smoking NICOTINE 63439730627 Active Ahmet Carbajal MD Active MONISTAT 7 COMBO PACK WOODROW 100 & 2 MG-% (9GM) VAG KIT 1 applicatorful per vagina q pm x 7 MICONAZOLE NITRATE 37292029691 No Longer Active Ahmet Carbajal MD Active FLAGYL 500 MG TAB 1 tablet by mouth bid METRONIDAZOLE 70158526638 No Longer Active Ahmet Carbajal MD Active OXYCODONE HCL ER 10 MG ORAL T12A 1/2 tab by mouth every 4 hours prn OXYCODONE HCL 46792306617 No Longer Active Ahmet Carbajal MD Active METHYLPREDNISOLONE 4 MG ORAL TABS po daily METHYLPREDNISOLONE 57980112246 No Longer Active Ahmet Carbajal MD Active LEVOFLOXACIN 500 MG ORAL TABS po daily LEVOFLOXACIN 62772933795 No Longer Active Ahmet Carbajal MD Active VIIBRYD 10 MG ORAL TABS Take 1 tablet once a day VILAZODONE HCL 34979957412 No Longer Active Ahmet Carbajal MD Active TOPAMAX 50 MG ORAL TABS 1 tab twice daily TOPIRAMATE 23655351874 No Longer Active Ahmet Carbajal MD Active DICLOFENAC SODIUM 50 MG TBEC 1 tablet by mouth four times daily PRN Pain 2015 DICLOFENAC SODIUM 16040751050 No Longer Active Ahmet Carbajal MD Active ADZENYS XR-ODT 6.3 MG ORAL TBED 1 tab po daily for ADHD AMPHETAMINE 82129135639 No Longer Active Ahmet Carbajal MD Active CHANTIX 1 MG TABS 1 twice a day to help quit smoking VARENICLINE TARTRATE 87566010281 No Longer Active Dipika Burgos MD Active CHANTIX STARTING MONTH EARNEST 0.5 MG X 11 & 1 MG X 42 TABS take as directed 2015 VARENICLINE TARTRATE 38242374863 No Longer Active Dipika Burgos MD Active TESSALON PERLES 100 MG CAP 1 to 2 tablets by mouth 3 times daily as needed for cough BENZONATATE 36040019821 No Longer Active Luigi Martínez APRN Active IMITREX 50 MG ORAL TABS 0.5 po x 1 PRN Headache. May repeat dose x 1 in 2 hours if needed SUMATRIPTAN SUCCINATE 20667099529 Active Ahmet Carbajal MD Active HYDROCODONE-ACETAMINOPHEN 5-325 MG TABS 1 to 2 four times a day as needed for pain use until can be seen by specialist HYDROCODONE- ACETAMINOPHEN 23388205565 No Longer Active Vishal Hui MD Active PROAIR HFA 108 (90 BASE) MCG/ACT AERS 2 puffs four times a day as needed 2015 ALBUTEROL SULFATE 25592920944 No Longer Active Vishal Hui MD Active PREDNISONE 20 MG TABS 2 daily for 5 days then 1 daily for 5 days PREDNISONE 98544899490 No Longer Active Vishal Hui MD Active ZITHROMAX Z-EARNEST 250 MG TABS 2 today and then 1 daily for 4 days AZITHROMYCIN 92299805343 No Longer Active Vishal Hui MD Active DICLOFENAC POTASSIUM TABS Take 1 tablet twice a day (pt. is not sure of the dose.) DICLOFENAC POTASSIUM TABS 31612453454 No Longer Active Vishal Hui MD Active VERAPAMIL HCL ER 120 MG ORAL CR-TABS Take 1 tablet by mouth twice a day. VERAPAMIL HCL 70526256538 Active Vishal Hui MD Active FLAGYL 500 MG TAB 1 tablet by mouth bid METRONIDAZOLE 68310072474 No Longer Active Vishal Hui MD Active VALIUM 5 MG TAB Take 1-2 tablets daily DIAZEPAM 79320014992 No Longer Active Fabiola Johnson APRN Active METOPROLOL TARTRATE 25 MG ORAL TABS 1/2 tablet twice daily for heart rate and blood pressure METOPROLOL TARTRATE 63501445870 No Longer Active Fabiola Johnson APRN Active MIRALAX ORAL POWD 17GMS DAILY IN WATER POLYETHYLENE GLYCOL 3350 34396709849 Active TAMARA Casey Active MIRALAX PACK 1 po qd PRN Constipation POLYETHYLENE GLYCOL 3350 99497921901 No Longer Active Ahmet Carbajal MD Active MINIPRESS 2 MG CAPS 4 cap po at night PRAZOSIN HCL 90061630563 No Longer Active Ahmet Carbajal MD Active PIROXICAM 20 MG CAPS 1 cap po qd PRN Pain PIROXICAM 09952461805 No Longer Active Ahmet Carbajal MD Active TRAMADOL HCL 50 MG TABS 1-2 po TID PRN Pain TRAMADOL HCL 22058356657 No Longer Active Ahmet Carbajal MD Active METOPROLOL TARTRATE 50 MG TAB 1 po bid METOPROLOL TARTRATE 17478699692 No Longer Active Ahmet Carbajal MD Active ABILIFY 15 MG ORAL TABS 1 tab daily ARIPIPRAZOLE 00747965726 No Longer Active Ahmet Carbajal MD Active PROZAC 20 MG ORAL CAPS 1 tab daily FLUOXETINE HCL 83168394161 No Longer Active Ahmet Carbajal MD Active AMBIEN 5 MG ORAL TABS 1 tab at bedtime ZOLPIDEM TARTRATE 74781857886 No Longer Active Ahmet Carbajal MD Active PREDNISONE 20 MG TAB 2 tabs daily for 4 days, 1 tab daily for 4 days, 1/2 tab daily for 4 days PREDNISONE 65327177393 No Longer Active Ahmet Carbajal MD Active KEFLEX 500 MG CAP 1 po TID x 10 days CEPHALEXIN 14458874112 No Longer Active Vishal Hui MD Active SAPHRIS 5 MG SUBL 1 po bid ASENAPINE MALEATE 98828674875 No Longer Active Jillina Frazell LIFT ELECTRICIAN Active LATUDA 80 MG TABS Take one by mouth daily LURASIDONE HCL 91682957412 No Longer Active Jillina Frazell LIFT ELECTRICIAN Active AMLODIPINE BESYLATE 5 MG TABS 1 tablet by mouth daily AMLODIPINE BESYLATE 01530804569 No Longer Active Jillina Frazell LIFT ELECTRICIAN Active AMITRIPTYLINE HCL 100 MG TAB one at hs AMITRIPTYLINE HCL 19309673966 No Longer Active Vishal Hui MD Active TRAZODONE HCL 100 MG TAB take 1 at bedtime TRAZODONE HCL 70260047359 No Longer Active Vishal Hui MD Active VYVANSE 40 MG CAPS 1 daily, LISDEXAMFETAMINE DIMESYLATE 80682337913 No Longer Active Vishal Hui MD Active IBUPROFEN 600 MG TAB 1 po TID PRN IBUPROFEN 52920996270 No Longer Active Vishal Hui MD Active PROZAC 20 MG CAP Take one by mouth daily FLUOXETINE HCL 19942523967 No Longer Active Vishal Hui MD Active BACTRIM DS 800-160 MG TABS 1 pill by mouth twice daily SULFAMETHOXAZOLE-TRIMETHOPRIM 30736767067 No Longer Active Sahara Rodriguez MD PhD Active DIFLUCAN 150 MG TAB 1 tablet by mouth daily FLUCONAZOLE 87788329369 No Longer Active Vishal Hui MD Active TIZANIDINE HCL 4 MG TABS 1 po q6hr PRN Muscle Spasm/Back Pain TIZANIDINE HCL 61288497274 Active Vishal Hui MD Active CLINDAMYCIN HCL 150 MG CAPS 1 four times a day CLINDAMYCIN HCL 76056448903 No Longer Active Neeraj Collins MD Active KEFLEX 500 MG ORAL CAPS 1 cap QID by mouth CEPHALEXIN 58409946475 No Longer Active Neeraj Collins MD Active DIFLUCAN 150 MG TABS 1 pill every other day x 2 doses FLUCONAZOLE 76266742393 No Longer Active Sahara Rodriguez MD PhD Active MELATONIN 3 MG CAPS 2 po q hs MELATONIN 43940239636 No Longer Active Sahara Rodriguez MD PhD Active MULTIVITAMINS CAPS Take one by mouth daily MULTIPLE VITAMIN 84982103901 No Longer Active Sahara Rodriguez MD PhD Active BACTRIM DS 800-160 MG TAB 1 tab by mouth twice daily TRIMETHOPRIM-SULFAMETHOXAZOLE 34790264479 No Longer Active Sahara Rodriguez MD PhD Active [facility] PROBIOTIC ORAL CHEW 2 daily po PROBIOTIC PRODUCT 36336476927 No Longer Active Sahara Rodriguez MD PhD Active BACTRIM DS 800-160 MG TABS 1 po BID x 7 days SULFAMETHOXAZOLE-TRIMETHOPRIM 37436525755 No Longer Active Vishal Hui MD Active CHANTIX STARTING MONTH EARNEST 0.5 MG X 11 & 1 MG X 42 TABS 0.5mg daily for 3 days , then 0.5mg BID for 4 days, then 1mg BID VARENICLINE TARTRATE 32388354515 No Longer Active TAMARA Gray Active VERAPAMIL HCL CR 120 MG TAB CR 1 po bid VERAPAMIL HCL 50889798511 No Longer Active Vishal Hui MD Active METOPROLOL SUCCINATE 50 MG TB24 1 tablet by mouth daily METOPROLOL SUCCINATE 70757922660 No Longer Active Vishal Hui MD Active SAPHRIS 10 MG SUBL 1 tab po bid ASENAPINE MALEATE 29769659936 No Longer Active Vishal Hui MD Active LISINOPRIL 20 MG TABS 1 tab po qd LISINOPRIL 83388032363 No Longer Active Vishal Hui MD Active LATUDA 20 MG TABS Take one by mouth daily LURASIDONE HCL 68912403779 No Longer Active Vishal Hui MD Active TRAZODONE HCL 50 MG TABS 1/2 tab po qd prn for anxiety TRAZODONE HCL 67565385366 No Longer Active Vishal Hui MD Active OMEPRAZOLE 20 MG TBEC 1 po q a.m. 30min prior to first food intake OMEPRAZOLE 06000723856 Active TAMARA Casey Active RANITIDINE HCL 150 MG CAPS 1 twice a day RANITIDINE HCL 60982933689 Active Luigi Martínez APRN Active LINZESS 290 MCG CAPS Take one by mouth daily LINACLOTIDE 42411937559 No Longer Active Vishal Hui MD Active SAPHRIS 5 MG SUBL 1 tab po qd ASENAPINE MALEATE 03692722398 No Longer Active Vishal Hui MD Active ZALEPLON 10 MG CAPS 1 cap po every other night ZALEPLON 32109750178 No Longer Active Vishal Hui MD Active LYRICA 50 MG CAPS 1 tab po TID PREGABALIN 75858721645 No Longer Active Vishal Hui MD Active LORATADINE 10 MG TABS 1 tab po qd LORATADINE 37514618560 No Longer Active Vishal Hui MD Active VERAPAMIL HCL ER 180 MG CR-TABS 1 tab po bid VERAPAMIL HCL 22436978458 No Longer Active Vishal Hui MD Active MIRALAX POWD 1 capfull once daily POLYETHYLENE GLYCOL 3350 89572134691 No Longer Active Vishal Hui MD Active PREDNISONE 20 MG TABS 1 tab po qd PREDNISONE 51135182169 No Longer Active Renzo Thornton DO Active LEVOFLOXACIN 500 MG TABS 1 tab po qd LEVOFLOXACIN 39343321435 No Longer Active Renzo Thornton DO Active BUSPIRONE HCL 15 MG TABS 1 tab po TID BUSPIRONE HCL 03804084109 No Longer Active Renzo Thornton DO Active BENZTROPINE MESYLATE 1 MG TABS 1 tab po qd BENZTROPINE MESYLATE 33844688549 No Longer Active Renzo Thornton DO Active ATENOLOL 25 MG TABS 1 tab po qd ATENOLOL 15157417284 No Longer Active Renzo Thornton DO Active ESCITALOPRAM OXALATE 20 MG TABS 1 tab po qd ESCITALOPRAM OXALATE 99597063418 No Longer Active Renzo Thornton DO Active ADVAIR DISKUS 250-50 MCG/DOSE AEPB 1 puff BID FLUTICASONE-SALMETEROL 45282026808 No Longer Active Renzo Thornton DO Active PREDNISONE 20 MG TAB 2 tabs daily for 3 days, 1 tab daily for 3 days, 1/2 tab daily for 2 days PREDNISONE 79774014420 No Longer Active Vishal Hui MD Active CEFDINIR 300 MG CAPS by mouth twice a day CEFDINIR 49018285879 No Longer Active Vishal Hui MD Active LANSOPRAZOLE 30 MG CPDR 1 cap po qd LANSOPRAZOLE 32847316561 No Longer Active Vishal Hui MD Active BACLOFEN 20 MG TABS 1 tab po tid BACLOFEN 57308544083 No Longer Active Vishal Hui MD Active ADVAIR DISKUS 250-50 MCG/DOSE AEPB 1 puff BID ADVAIR DISKUS 250-50 MCG/DOSE AEPB FLUTICASONE-SALMETEROL Inactive ESCITALOPRAM OXALATE 20 MG TABS 1 tab po qd ESCITALOPRAM OXALATE 20 MG TABS 804519 ESCITALOPRAM OXALATE Inactive ATENOLOL 25 MG TABS 1 tab po qd ATENOLOL 25 MG TABS 841596 ATENOLOL Inactive BENZTROPINE MESYLATE 1 MG TABS 1 tab po qd BENZTROPINE MESYLATE 1 MG TABS 496046 BENZTROPINE MESYLATE Inactive BUSPIRONE HCL 15 MG TABS 1 tab po TID BUSPIRONE HCL 15 MG TABS 139124 BUSPIRONE HCL Inactive LEVOFLOXACIN 500 MG TABS 1 tab po qd LEVOFLOXACIN 500 MG TABS 748158 LEVOFLOXACIN Inactive PREDNISONE 20 MG TABS 1 tab po qd PREDNISONE 20 MG TABS 737443 PREDNISONE Inactive MIRALAX POWD 1 capfull once daily MIRALAX POWD 653153 POLYETHYLENE GLYCOL 3350 Inactive VERAPAMIL HCL ER 180 MG CR-TABS 1 tab po bid VERAPAMIL HCL ER 180 MG CR-TABS VERAPAMIL HCL Inactive LORATADINE 10 MG TABS 1 tab po qd LORATADINE 10 MG TABS 008338 LORATADINE Inactive LYRICA 50 MG CAPS 1 tab po TID LYRICA 50 MG CAPS PREGABALIN Inactive ZALEPLON 10 MG CAPS 1 cap po every other night ZALEPLON 10 MG CAPS 867924 ZALEPLON Inactive SAPHRIS 5 MG SUBL 1 tab po qd SAPHRIS 5 MG SUBL ASENAPINE MALEATE Inactive TRAZODONE HCL 50 MG TABS 1/2 tab po qd prn for anxiety TRAZODONE HCL 50 MG TABS 787672 TRAZODONE HCL Inactive LATUDA 20 MG TABS Take one by mouth daily LATUDA 20 MG TABS LURASIDONE HCL Inactive LISINOPRIL 20 MG TABS 1 tab po qd LISINOPRIL 20 MG TABS 989067 LISINOPRIL Inactive SAPHRIS 10 MG SUBL 1 [...] twice daily BACTRIM DS 800-160 MG TAB 081148 TRIMETHOPRIM-SULFAMETHOXAZOLE Inactive MULTIVITAMINS CAPS Take one by mouth daily MULTIVITAMINS CAPS MULTIPLE VITAMIN Inactive MELATONIN 3 MG CAPS 2 po q hs MELATONIN 3 MG CAPS 19950526 MELATONIN Inactive KEFLEX 500 MG ORAL CAPS 1 cap QID by mouth KEFLEX 500 MG ORAL CAPS 241836 CEPHALEXIN Inactive CLINDAMYCIN HCL 150 MG CAPS 1 four times a day CLINDAMYCIN HCL 150 MG CAPS 049143 CLINDAMYCIN HCL Inactive DIFLUCAN 150 MG TAB 1 tablet by mouth daily DIFLUCAN 150 MG TAB 037277 FLUCONAZOLE Inactive PROZAC 20 MG CAP Take one by mouth daily PROZAC 20 MG CAP 588843 FLUOXETINE HCL Inactive IBUPROFEN 600 MG TAB 1 po TID PRN IBUPROFEN 600 MG TAB 004580 IBUPROFEN Inactive VYVANSE 40 MG CAPS 1 daily, VYVANSE 40 MG CAPS LISDEXAMFETAMINE DIMESYLATE Inactive TRAZODONE HCL 100 MG TAB take 1 at bedtime TRAZODONE HCL 100 MG TAB 562967 TRAZODONE HCL Inactive AMITRIPTYLINE HCL 100 MG TAB one at hs AMITRIPTYLINE HCL 100 MG TAB 084372 AMITRIPTYLINE HCL Inactive AMLODIPINE BESYLATE 5 MG TABS 1 tablet by mouth daily AMLODIPINE BESYLATE 5 MG TABS 795247 AMLODIPINE BESYLATE Inactive LATUDA 80 MG TABS Take one by mouth daily LATUDA 80 MG TABS LURASIDONE HCL Inactive SAPHRIS 5 MG SUBL 1 po bid SAPHRIS 5 MG SUBL ASENAPINE MALEATE Inactive PREDNISONE 20 MG TAB 2 tabs daily for 4 days, 1 tab daily for 4 days, 1/2 tab daily for 4 days PREDNISONE 20 MG TAB 780981 PREDNISONE Inactive AMBIEN 5 MG ORAL TABS 1 tab at bedtime AMBIEN 5 MG ORAL TABS 415315 ZOLPIDEM TARTRATE Inactive PROZAC 20 MG ORAL CAPS 1 tab daily PROZAC 20 MG ORAL CAPS 375334 FLUOXETINE HCL Inactive ABILIFY 15 MG ORAL TABS 1 tab daily ABILIFY 15 MG ORAL TABS 977800 ARIPIPRAZOLE Inactive METOPROLOL TARTRATE 50 MG TAB 1 po bid METOPROLOL TARTRATE 50 MG TAB 730359 METOPROLOL TARTRATE Inactive TRAMADOL HCL 50 MG TABS 1-2 po TID PRN Pain TRAMADOL HCL 50 MG TABS 556237 TRAMADOL HCL Inactive PIROXICAM 20 MG CAPS 1 cap po qd PRN Pain PIROXICAM 20 MG CAPS 036844 PIROXICAM Inactive MINIPRESS 2 MG CAPS 4 cap po at night MINIPRESS 2 MG CAPS 140494 PRAZOSIN HCL Inactive MIRALAX PACK 1 po qd PRN Constipation MIRALAX PACK 445986 POLYETHYLENE GLYCOL 3350 Inactive METOPROLOL TARTRATE 25 MG ORAL TABS 1/2 tablet twice daily for heart rate and blood pressure METOPROLOL TARTRATE 25 MG ORAL TABS 095071 METOPROLOL TARTRATE Inactive VALIUM 5 MG TAB Take 1-2 tablets daily VALIUM 5 MG TAB 764484 DIAZEPAM Inactive FLAGYL 500 MG TAB 1 tablet by mouth bid FLAGYL 500 MG TAB 905599 METRONIDAZOLE Inactive DICLOFENAC POTASSIUM TABS Take 1 tablet twice a day (pt. is not sure of the dose.) DICLOFENAC POTASSIUM TABS DICLOFENAC POTASSIUM TABS Inactive ZITHROMAX Z-EARNEST 250 MG TABS 2 today and then 1 daily for 4 days ZITHROMAX Z-EARNEST 250 MG TABS 3648144 AZITHROMYCIN Inactive PREDNISONE 20 MG TABS 2 daily for 5 days then 1 daily for 5 days PREDNISONE 20 MG TABS 605497 PREDNISONE Inactive PROAIR HFA 108 (90 BASE) MCG/ACT AERS 2 puffs four times a day as needed 2015 PROAIR HFA 108 (90 BASE) MCG/ACT AERS ALBUTEROL SULFATE Inactive HYDROCODONE-ACETAMINOPHEN 5-325 MG TABS 1 to 2 four times a day as needed for pain use until can be seen by specialist HYDROCODONE- ACETAMINOPHEN 5-325 MG TABS 565700 HYDROCODONE-ACETAMINOPHEN Inactive TESSALON PERLES 100 MG CAP 1 to 2 tablets by mouth 3 times daily as needed for cough TESSALON PERLES 100 MG CAP 929939 BENZONATATE Inactive CHANTIX STARTING MONTH EARNEST 0.5 [...] Pain 2015 DICLOFENAC SODIUM 50 MG TBEC 774416 DICLOFENAC SODIUM Inactive TOPAMAX 50 MG ORAL TABS 1 tab twice daily TOPAMAX 50 MG ORAL TABS 260450 TOPIRAMATE Inactive VIIBRYD 10 MG ORAL TABS Take 1 tablet once a day VIIBRYD 10 MG ORAL TABS VILAZODONE HCL Inactive LEVOFLOXACIN 500 MG ORAL TABS po daily LEVOFLOXACIN 500 MG ORAL TABS 668378 LEVOFLOXACIN Inactive METHYLPREDNISOLONE 4 MG ORAL TABS po daily METHYLPREDNISOLONE 4 MG ORAL TABS 488169 METHYLPREDNISOLONE Inactive OXYCODONE HCL ER 10 MG ORAL T12A 1/2 tab by mouth every 4 hours prn OXYCODONE HCL ER 10 MG ORAL T12A OXYCODONE HCL Inactive FLAGYL 500 MG TAB 1 tablet by mouth bid FLAGYL 500 MG TAB 076164 METRONIDAZOLE Inactive MONISTAT 7 COMBO PACK WOODROW 100 & 2 MG-% (9GM) VAG KIT 1 applicatorful per vagina q pm x 7 MONISTAT 7 COMBO PACK WOODROW 100 & 2 MG-% (9GM) VAG KIT MICONAZOLE NITRATE Inactive BACTRIM DS 800-160 MG TABS 1 twice a day BACTRIM DS 800-160 MG TABS 889396 SULFAMETHOXAZOLE-TRIMETHOPRIM Inactive TRAMADOL HCL 50 MG TABS 1/2-1 tab TID PRN TRAMADOL HCL 50 MG TABS 792898 TRAMADOL HCL Inactive ABILIFY MAINTENA 400 MG IM SUSR 400mg injection every 26 days ABILIFCielo MAINTENA 400 MG IM SUSR ARIPIPRAZOLE Inactive KLONOPIN 1 MG ORAL TABS 1 tab po TID KLONOPIN 1 MG ORAL TABS 828484 CLONAZEPAM Inactive ADVAIR DISKUS 250-50 MCG/DOSE INH AEPB 1 puff twice a day for asthma ADVAIR DISKUS 250-50 MCG/DOSE INH AEPB FLUTICASONE- SALMETEROL Inactive BENADRYL 25 MG CAP 4 po at bedtime for insomnia BENADRYL 25 MG CAP DIPHENHYDRAMINE HCL Inactive PREDNISONE 20 MG TABS 2 daily for 5 days then 1 daily for 5 days PREDNISONE 20 MG TABS 684192 PREDNISONE Inactive HYDROCODONE-ACETAMINOPHEN 5-325 MG ORAL TABS 1 tab two times a day HYDROCODONE-ACETAMINOPHEN 5-325 MG ORAL TABS 704070 HYDROCODONE-ACETAMINOPHEN Inactive ZITHROMAX Z-EARNEST 250 MG TABS 2 today and then 1 daily for 4 days ZITHROMAX Z-EARNEST 250 MG TABS 1776572 AZITHROMYCIN Inactive GUAIFENESIN-CODEINE 100-10 MG/5ML SYRP 5ml every 4 to 6 hours as needed for cough GUAIFENESIN-CODEINE 100-10 MG/5ML SYRP 915539 GUAIFENESIN-CODEINE Inactive HALOPERIDOL 10 MG ORAL TABS 1 tab q.d HALOPERIDOL 10 MG ORAL TABS 051853 HALOPERIDOL Inactive ASPIRIN 325 MG ORAL TABS 1 tab q.d ASPIRIN 325 MG ORAL TABS 703091 ASPIRIN Inactive FLUTICASONE PROPIONATE 50 MCG/ACT SUSP 2 sprays each nostril daily before bed. FLUTICASONE PROPIONATE 50 MCG/ACT SUSP 7954026 FLUTICASONE PROPIONATE Inactive ZOFRAN 4 MG TABS 1 po q6hr PRN Nausea ZOFRAN 4 MG TABS 522162 ONDANSETRON HCL Inactive CEFDINIR 300 MG CAPS by mouth twice a day CEFDINIR 300 MG CAPS 799632 CEFDINIR Inactive PREDNISONE 20 MG TAB 2 tabs daily for 3 days, 1 tab daily for 3 days, 1/2 tab daily for 2 days PREDNISONE 20 MG TAB 932026 PREDNISONE Inactive BACTRIM DS 800-160 MG TABS 1 po BID x 7 days BACTRIM DS 800-160 MG TABS 19820521 SULFAMETHOXAZOLE-TRIMETHOPRIM Inactive DIFLUCAN 150 MG TABS 1 pill every other day x 2 doses DIFLUCAN 150 MG TABS 749653 FLUCONAZOLE Inactive BACTRIM DS 800-160 MG TABS 1 pill by mouth twice daily BACTRIM DS 800-160 MG TABS 19820521 SULFAMETHOXAZOLE-TRIMETHOPRIM Inactive KEFLEX 500 MG CAP 1 po TID x 10 days KEFLEX 500 MG CAP 449417 CEPHALEXIN Inactive Advance Directives Directive Description Start [...] % 11.0-15.0 platelet count 443 THOUSAND/UL 10*3/mm3 526-306 7149/03/01 mean platelet volume 8.2 fL 7.5-12.5 Lab [...] 369 10^3/MM^3 10*3/mm3 142-424 Lab Report: Chlamydia/GC APTIMA/[id number] - Lab chlamydia DNA probe NOT DETECTED NOT DETECTED Lab Report: Chlamydia/GC APTIMA/[id number] - Microbiology Neisseria gonorrhoeae DNA probe NOT DETECTED NOT DETECTED Lab Report: Chlamydia/GC APTIMA/99139, Urinalysis, Complete, with Reflex ... - Lab chlamydia DNA probe NOT DETECTED NOT DETECTED Lab Report: Chlamydia/GC APTIMA/04830, Urinalysis, Complete, with Reflex ... - Microbiology Neisseria gonorrhoeae DNA probe NOT DETECTED NOT DETECTED Lab Report: Chlamydia/GC APTIMA/21078, Urinalysis, Complete, with Reflex ... - Urinalysis microalbumin/total urine volume 2 mg/L Units converted. See lab report for original value. microalbumin/creatinine ratio, urine 9 MCG/MG CREAT mg/L <30 Lab Report: Comp. Metabolic Panel - Chemistry sodium, serum 142 mmol/L 942-505 8962/06/08 carbon dioxide, venous blood 27.6 mmol/L 21.0-32.0 potassium, serum 4.0 mmol/L 3.5-5.2 chloride, serum 105 mmol/L 98-107 blood glucose 95 mg/dL 65-110 urea nitrogen, blood 8 mg/dL 7-18 creatinine, serum 0.75 mg/dL 0.55-1.30 alanine aminotransferase (SGPT), serum 49 U/L 12-78 aspartate aminotransferase (SGOT), serum 28 U/L 15-37 calcium, serum 9.4 mg/dL 8.5-10.1 bilirubin, serum, total 0.30 mg/dL 0.00-1.00 sodium, serum 140 mmol/L 102-903 2494/08/08 carbon dioxide, venous blood 33.7 mmol/L 21.0-32.0 [...] mg/dL Encounters Code Encounter Date Provider Facility CPT-44010 Level 3 Est. Patient 15:28:23 SCREED PERSON Suzan Boo [facility] CPT-69661 Level 4 Est. Patient 10:20:54 SCREED PERSON Suzan Boo [facility] CPT-07314 Level 3 Est. Patient 11:47:37 SCREED PERSON Ahmet Carbajal MD [facility] CPT-06514 Level 3 Est. Patient 10:40:11 SCREED PERSON Ahmet Carbajal MD [facility] CPT-22888 Level 3 Est. Patient 15:07:06 SCREED PERSON Neeraj Collins MD [facility] CPT-70579 Level 4 Est. Patient 14:45:00 SCREED PERSON Ahmet Carbajal MD [facility] CPT-38735 Level 3 Est. Patient 13:59:59 CDT Luigi Martínez [facility] CPT-63871 Level 3 Est. Patient 18:18:53 CDT Neeraj Collins MD [facility] CPT-64720 Level 3 Est. Patient 15:50:44 CDT Vishal Hui MD [facility] CPT-05656 Level 3 Est. Patient 11:36:17 CDT Ahmet Carbajal MD [facility] CPT-92954 Level 3 Est. Patient 13:29:16 CDT Vishal Hui MD [facility] CPT-98509 Level 3 Est. Patient 14:27:52 CDT Neeraj Collins MD [facility] CPT-53983 Level 3 Est. Patient 08:56:03 CDT Luigi Martínez [facility] CPT-87321 Level 4 Est. Patient 12:11:48 CDT Fabiola Johnson [facility] CPT-68255 Level 3 New Patient 16:53:37 CDT Albert Caldera MD [facility] CPT-72305 Level 3 Est. Patient 11:25:49 CDT Renzo Thornton DO [facility] CPT-29372 Level 3 Est. Patient 15:22:01 CDT Ahmet Carbajal MD [facility] CPT-08787 Level 4 Est. Patient 09:00:51 SCREED PERSON Vishal Hui MD [facility] CPT-51751 Level 3 Est. Patient 11:37:33 SCREED PERSON Vishal Hui MD [facility] CPT-97569 Level 3 Est. Patient 08:41:09 SCREED PERSON Vishal Hui MD [facility] CPT-39582 Level 4 Est. Patient 10:19:35 SCREED PERSON Vishal Hui MD [facility] CPT-19317 Level 3 Est. Patient 13:35:45 CDT Vishal Hui MD [facility] CPT-88118 Level 4 Est. Patient 10:08:37 CDT Vishal Hui MD [facility] CPT-74530 Level 3 Est. Patient 11:22:10 CDT Vishal Hui MD [facility] CPT-20880 Level 3 Est. Patient 11:03:32 CDT Sahara Rodriguez MD [facility] CPT-76101 Level 3 Est. Patient 09:41:35 CDT Vishal Hui MD [facility] CPT-04598 Level 3 Est. Patient 12:00:41 CDT Neeraj Collins MD [facility] CPT-27146 Level 3 Est. Patient 09:16:24 CDT Vishal Hui MD [facility] CPT-18040 Level 4 Est. Patient 13:59:09 CDT Neeraj Collins MD [facility] CPT-06663 Level 3 Est. Patient 15:19:43 CDT Renzo Thornton [facility] CPT-87684 Level 3 Est. Patient 18:10:26 CDT Sahara Rodriguez MD [facility]-06533 Level 3 Est. Patient 14:49:50 CDT Vishal Hui MD [facility] CPT-08454 Level 4 Est. Patient 18:41:46 CDT Neeraj Collins MD [facility] CPT-84550 Level 4 Est. Patient 09:18:38 SCREED PERSON Vishal Hui MD [facility] CPT-63633 Level 3 Est. Patient 14:43:55 SCREED PERSON Vishal Hui MD [facility] CPT-26359 Level 3 Est. Patient 15:26:33 SCREED PERSON Sahara Rodriguez MD [facility] CPT-17958 Level 3 Est. Patient 10:32:14 SCREED PERSON Vishal Hui MD [facility] CPT-52472 Level 3 Est. Patient 15:12:52 SCREED PERSON Vishal Hui MD [facility] CPT-31198 Level 4 Est. Patient 09:19:27 CDT Vishal Hui MD [facility] CPT-29474 Level 3 Est. Patient 15:53:00 CDT Renzo Thornton [facility] CPT-30014 Level 3 Est. Patient 15:50:30 CDT Renzo Thornton [facility] CPT-34141 Level 3 Est. Patient 16:55:24 CDT Vishal Hui MD [facility] Procedures Code Procedure Name Date Entry Date Standard Description CPT-G0439 [facility] Annual Wellness Exam 09:30:58 SCREED PERSON CPT-65710 TSH - LAB USE ONLY 08:50:26 SCREED PERSON CPT-60126 CBC - LAB USE ONLY 08:50:26 SCREED PERSON CPT-13587 Venipuncture Draw Fee 08:50:26 SCREED PERSON CPT-20432 Abx/Therapy Injection 17:34:30 SCREED PERSON CPT-85368 Nexplanon Removal with Reinsertion 14:09:32 CDT CPT-J7307 Nexplanon (Implant) 14:09:32 CDT CPT-OV Office Visit 14:09:32 CDT CPT-67357 UA w micro - LAB USE ONLY 16:21:13 CDT CPT-10306 Wet Mount - LAB USE ONLY 16:21:13 CDT CPT-21420 First Vx - Ix admin for Medicare patients 14:37:47 CDT CPT-45430 Fluzone Preservative Free Intramuscular Suspension 14:37 :47 CDT CPT-48883 Abx/Therapy Injection 13:54:22 CDT CPT-49838 Abx/Therapy Injection 08:47:09 CDT CPT-54327 Abx/Therapy Injection 13:29:56 CDT CPT-23215 Abx/Therapy Injection 08:36:16 CDT CPT-00704 Wet [place] - LAB USE ONLY 17:44:58 CDT CPT-05277 UA w micro - LAB USE ONLY 17:44:58 CDT CPT-86894 CMP - LAB USE ONLY 17:44:58 CDT CPT-97580 Venipuncture Draw Fee 17:44:58 CDT CPT-80324 Cervical Min 4V - XRAY USE ONLY 09:01:40 CDT CPT-80578 Chest 2V Frontal and Lat - XRAY USE ONLY 11:06:31 CDT CPT-48277 EKG Trac and Interp - XRAY USE ONLY 11:31:43 CDT 08/26 CPT-J3420 Vitamin B12 1000mcg (Cyanocobalamin) 08:10:26 SCREED PERSON 04/12 CPT-91420 Abx/Therapy Injection 08:10:26 SCREED PERSON CPT-G0438 Initial Annual Wellness Exam 19:01:01 SCREED PERSON CPT-J3420 Vitamin B12 1000mcg (Cyanocobalamin) 16:57:46 CDT 08/14 CPT-46410 Recombivax HB Injection Suspension 5 MCG/0.5ML 08:37:50 SCREED PERSON CPT-08357 Immunization Single Admin 08:37:50 SCREED PERSON CPT-J3420 Vitamin B12 1000mcg (Cyanocobalamin) 08:32:16 SCREED PERSON 03/11 CPT-94715 Abx/Therapy Injection 08:32:16 SCREED PERSON CPT-95857 Chest 2V Frontal and Lat 11:46:38 SCREED PERSON CPT-71382 Venipuncture Draw Fee 09:12:45 SCREED PERSON CPT-J3420 Vitamin B12 1000mcg (Cyanocobalamin) 08:50:15 SCREED PERSON 02/08 CPT-12050 Abx/Therapy Injection 08:50:15 SCREED PERSON CPT-Cryo Cryotherapy 10:19:35 SCREED PERSON CPT-000 Give Appropriate Flu Vaccine 09:22:16 CDT CPT-J3420 Vitamin B12 1000mcg (Cyanocobalamin) 19:08:57 CDT 01/11 CPT-85301 Abx/Therapy Injection 19:08:57 CDT CPT-J3420 Vitamin B12 1000mcg (Cyanocobalamin) 08:19:08 CDT 12/11 CPT-33924 Abx/Therapy Injection 08:19:08 CDT CPT-J3420 Vitamin B12 1000mcg (Cyanocobalamin) 14:48:00 CDT 11/09 CPT-09431 Abx/Therapy Injection 14:47:59 CDT CPT-J3420 Vitamin B12 1000mcg (Cyanocobalamin) 08:34:04 CDT 10/09 CPT-21242 Abx/Therapy Injection 08:34:04 CDT CPT-J3420 Vitamin B12 1000mcg (Cyanocobalamin) 09:18:52 CDT 09/11 CPT-77594 Abx/Therapy Injection 09:18:52 CDT CPT-J3420 Vitamin B12 1000mcg (Cyanocobalamin) 08:35:44 CDT 09/04 CPT-02480 Abx/Therapy Injection 08:35:44 CDT CPT-65454 Immunization Single Admin 11:07:16 CDT CPT-18132 Hepatitis B adult IM 11:07:16 CDT CPT-J3420 Vitamin B12 1000mcg (Cyanocobalamin) 11:00:49 CDT 08/28 CPT-J1040 Depo Medrol 80 mg (Methyl Prednisolone Acetate) 11:00: 49 CDT CPT-31666 Abx/Therapy Injection 11:00:49 CDT CPT-J1040 Depo Medrol 80 mg (Methyl Prednisolone Acetate) 09:16: 23 CDT CPT-J3420 Vitamin B12 1000mcg (Cyanocobalamin) 08:27:05 CDT 08/20 CPT-85311 Abx/Therapy Injection 08:27:05 CDT CPT-73248 Recombivax HB Injection Suspension 5 MCG/0.5ML 10:00:41 CDT CPT-33079 Administration single or combination vaccine inc oral 10 :00:41 CDT CPT-92566 Sono transvag pelvis non OB uterus ovaries cervix 16:36: 57 CDT CPT-41867 LS spine comp w obliq 09:50:55 SCREED PERSON CPT-90176 Abd compl w upright 09:50:55 SCREED PERSON CPT-J1100 Decadron 4mg (Dexamethasone) 15:51:24 SCREED PERSON CPT-J1030 Depo Medrol 40 mg (Methyl Prednisolone Acetate) 15:51: 24 SCREED PERSON CPT-51908 Abx/Therapy Injection 15:51:24 SCREED PERSON CPT-J1100 Decadron 4mg (Dexamethasone) 15:26:33 SCREED PERSON CPT-J1030 Depo Medrol 40 mg (Methyl Prednisolone Acetate) 15:26: 33 SCREED PERSON CPT-03715 Sono retroperitoneal complete kidneys and bladder 17:15: 30 CDT CPT-83455 Abd compl w upright 16:09:25 CDT CPT-J1100 Decadron 8mg (Dexamethasone) 17:07:57 CDT CPT-58393 Abx/Therapy Injection 17:07:57 CDT CPT-J1100 Decadron 8mg (Dexamethasone) 16:55:24 CDT CPT-57443 Chest 2V Frontal and Lat 16:32:44 CDT
--- OUTSIDE RECORDS SUMMARY | 2016-11-04 15:08 | XMS REPORT | Clinical Summary ---
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 Juliet Kimbrough POULTRY CULLER Dependence on other enabling machines and devices [...] IM SUSR Injection once per month ARIPIPRAZOLE 48025492501 Active Juliet Kimbrough APRN Active PREDNISONE 20 MG TAB 2 tabs daily for 4 days, 1 tab daily for 4 days, 1/2 tab daily for 4 days PREDNISONE 22633459071 Active Vishal Hui MD Active IMITREX 50 MG ORAL TABS 1/2 tab every 6 hours prn SUMATRIPTAN SUCCINATE 80019546151 Active Jillina Mauricio WALTERSN Active AMBIEN 5 MG ORAL TABS 1 tab at bedtime ZOLPIDEM TARTRATE 08366299445 Active Pacollina Mauricio WALTERSN Active PROZAC 20 MG ORAL CAPS 1 tab daily FLUOXETINE HCL 72567992646 Active Tataina Mauricio WALTERSN Active ABILIFY 15 MG ORAL TABS 1 tab daily ARIPIPRAZOLE 01612811098 Active Pacollina Mauricio WALTERSN Active MINIPRESS 2 MG CAPS 4 cap po at night PRAZOSIN HCL 40253712794 Active Jillina Mauricio WALTERSN Active TOPAMAX 50 MG ORAL TABS 1 tab twice daily TOPIRAMATE 82976687525 Active Jillina Frazelephraim WALTERSN Active SAPHRIS 5 MG SUBL 1 po bid ASENAPINE MALEATE 14502783430 No Longer Active Jillina Mauricio WALTERSN Active LATUDA 80 MG TABS Take one by mouth daily LURASIDONE HCL 61753223126 No Longer Active Luigi Martínez APRN Active AMLODIPINE BESYLATE 5 MG TABS 1 tablet by mouth daily AMLODIPINE BESYLATE 07456610762 No Longer Active Luigi Martínez POULTRY CULLER Active AMITRIPTYLINE HCL 100 MG TAB one at hs AMITRIPTYLINE HCL 02035754904 No Longer Active Vishal Hui MD Active TRAZODONE HCL 100 MG TAB take 1 at bedtime TRAZODONE HCL 31353813290 No Longer Active Vishal Hui MD Active VYVANSE 40 MG CAPS 1 daily, LISDEXAMFETAMINE DIMESYLATE 51555600107 No Longer Active Vishal Hui MD Active IBUPROFEN 600 MG TAB 1 po TID PRN IBUPROFEN 27671770686 No Longer Active Vishal Hui MD Active MIRALAX PACK 1 po qd PRN Constipation POLYETHYLENE GLYCOL 3350 93667283132 Active Vishal Hui MD Active PROZAC 20 MG CAP Take one by mouth daily FLUOXETINE HCL 28860159009 No Longer Active Vishal Hui MD Active ZOFRAN 4 MG TABS 1 po q6hr PRN Nausea ONDANSETRON HCL Active Vishal Hui MD Active BACTRIM DS 800-160 MG TABS 1 pill by mouth twice daily SULFAMETHOXAZOLE-TRIMETHOPRIM 13787244213 No Longer Active Sahara Rodriguez MD PhD Active DIFLUCAN 150 MG TAB 1 tablet by mouth daily FLUCONAZOLE 02934695900 No Longer Active Vishal Hui MD Active TIZANIDINE HCL 4 MG TABS 1 po q6hr PRN Muscle Spasm/Back Pain TIZANIDINE HCL 92859172753 Active Luigi Martínez APRN Active CLINDAMYCIN HCL 150 MG CAPS 1 four times a day CLINDAMYCIN HCL 68118745410 No Longer Active Neeraj Collins MD Active KEFLEX 500 MG ORAL CAPS 1 cap QID by mouth CEPHALEXIN 25476270429 No Longer Active Neeraj Collins MD Active DIFLUCAN 150 MG TABS 1 pill every other day x 2 doses FLUCONAZOLE 34418170411 No Longer Active Sahara Rodriguez MD PhD Active MELATONIN 3 MG CAPS 2 po q hs MELATONIN 06826833852 No Longer Active Sahara Rodriguez MD PhD Active MULTIVITAMINS CAPS Take one by mouth daily MULTIPLE VITAMIN 49686425311 No Longer Active Sahara Rodriguez MD PhD Active BACTRIM DS 800-160 MG TAB 1 tab by mouth twice daily TRIMETHOPRIM-SULFAMETHOXAZOLE 81764601469 No Longer Active Sahara Rodriguez MD PhD Active [facility] PROBIOTIC ORAL CHEW 2 daily po PROBIOTIC PRODUCT 91518479718 No Longer Active Sahara Rodriguez MD PhD Active BACTRIM DS 800-160 MG TABS 1 po BID x 7 days SULFAMETHOXAZOLE-TRIMETHOPRIM 15354649963 No Longer Active Vishal Hui MD Active CHANTIX STARTING MONTH EARNEST 0.5 MG X 11 & 1 MG X 42 TABS 0.5mg daily for 3 days , then 0.5mg BID for 4 days, then 1mg BID VARENICLINE TARTRATE 69409494656 No Longer Active TAMARA Gray Active METOPROLOL TARTRATE 50 MG TAB 1 po bid METOPROLOL TARTRATE 53679081570 Active Vishal Hui MD Active VERAPAMIL HCL CR 120 MG TAB CR 1 po bid VERAPAMIL HCL 15650693719 No Longer Active Vishal Hui MD Active METOPROLOL SUCCINATE 50 MG TB24 1 tablet by mouth daily METOPROLOL SUCCINATE 99702946949 No Longer Active Vishal Hui MD Active TRAMADOL HCL 50 MG TABS 1-2 po TID PRN Pain TRAMADOL HCL 43847186193 Active Luigi Martínez APRN Active SAPHRIS 10 MG SUBL 1 tab po bid ASENAPINE MALEATE 22934007829 No Longer Active Vishal Hui MD Active LISINOPRIL 20 MG TABS 1 tab po qd LISINOPRIL 35077549077 No Longer Active Vishal Hui MD Active BENADRYL 25 MG CAP 2 po tid prn anxiety DIPHENHYDRAMINE HCL 73483672276 Active Vishal Hui MD Active LATUDA 20 MG TABS Take one by mouth daily LURASIDONE HCL 91353223074 No Longer Active Vishal Hui MD Active TRAZODONE HCL 50 MG TABS 1/2 tab po qd prn for anxiety TRAZODONE HCL 21342089147 No Longer Active Vishal Hui MD Active PIROXICAM 20 MG CAPS 1 cap po qd PRN Pain PIROXICAM 19307410995 Active Vishal Hui MD Active OMEPRAZOLE 20 MG TBEC 1 po q a.m. 30min prior to first food intake OMEPRAZOLE 27684920730 Active Vishal Hui MD Active RANITIDINE HCL 150 MG CAPS 1 twice a day RANITIDINE HCL 91589270829 Active Vishal Hui MD Active LINZESS 290 MCG CAPS Take one by mouth daily LINACLOTIDE 31149744518 No Longer Active Vishal Hui MD Active SAPHRIS 5 MG SUBL 1 tab po qd ASENAPINE MALEATE 70003975188 No Longer Active Vishal Hui MD Active ZALEPLON 10 MG CAPS 1 cap po every other night ZALEPLON 68736653512 No Longer Active Vishal uHi MD Active LYRICA 50 MG CAPS 1 tab po TID PREGABALIN 65837631445 No Longer Active Vishal Hui MD Active LORATADINE 10 MG TABS 1 tab po qd LORATADINE 81310554960 No Longer Active Vishal Hui MD Active VERAPAMIL HCL ER 180 MG CR-TABS 1 tab po bid VERAPAMIL HCL 18050834142 No Longer Active Vishal Hui MD Active MIRALAX POWD 1 capfull once daily POLYETHYLENE GLYCOL 3350 00326506867 No Longer Active Vishal Hui MD Active PREDNISONE 20 MG TABS 1 tab po qd PREDNISONE 06485621986 No Longer Active Renzo Thornton DO Active LEVOFLOXACIN 500 MG TABS 1 tab po qd LEVOFLOXACIN 71978176979 No Longer Active Renzo Thornton DO Active BUSPIRONE HCL 15 MG TABS 1 tab po TID BUSPIRONE HCL 32495436861 No Longer Active Renzo Thornton DO Active BENZTROPINE MESYLATE 1 MG TABS 1 tab po qd BENZTROPINE MESYLATE 94140815006 No Longer Active Renzo Thornton DO Active ATENOLOL 25 MG TABS 1 tab po qd ATENOLOL 07258912550 No Longer Active Renzo Thornton DO Active ESCITALOPRAM OXALATE 20 MG TABS 1 tab po qd ESCITALOPRAM OXALATE 96879354153 No Longer Active Renzo Thornton DO Active ADVAIR DISKUS 250-50 MCG/DOSE AEPB 1 puff BID FLUTICASONE-SALMETEROL 01969888644 No Longer Active Renzo Thornton DO Active PREDNISONE 20 MG TAB 2 tabs daily for 3 days, 1 tab daily for 3 days, 1/2 tab daily for 2 days PREDNISONE 61846348541 No Longer Active Vishal Hui MD Active CEFDINIR 300 MG CAPS by mouth twice a day CEFDINIR 16859828817 No Longer Active Vishal Hui MD Active LANSOPRAZOLE 30 MG CPDR 1 cap po qd LANSOPRAZOLE 92076825740 No Longer Active Vishal Hui MD Active BACLOFEN 20 MG TABS 1 tab po tid BACLOFEN 05606723950 No Longer Active Vishal Hui MD Active ADVAIR DISKUS 250-50 MCG/DOSE AEPB 1 puff BID ADVAIR DISKUS 250-50 MCG/DOSE AEPB FLUTICASONE-SALMETEROL Inactive ESCITALOPRAM OXALATE 20 MG TABS 1 tab po qd ESCITALOPRAM OXALATE 20 MG TABS 712480 ESCITALOPRAM OXALATE Inactive ATENOLOL 25 MG TABS 1 tab po qd ATENOLOL 25 MG TABS 063141 ATENOLOL Inactive BENZTROPINE MESYLATE 1 MG TABS 1 tab po qd BENZTROPINE MESYLATE 1 MG TABS 376924 BENZTROPINE MESYLATE Inactive BUSPIRONE HCL 15 MG TABS 1 tab po TID BUSPIRONE HCL 15 MG TABS 217995 BUSPIRONE HCL Inactive LEVOFLOXACIN 500 MG TABS 1 tab po qd LEVOFLOXACIN 500 MG TABS 802039 LEVOFLOXACIN Inactive PREDNISONE 20 MG TABS 1 tab po qd PREDNISONE 20 MG TABS 898272 PREDNISONE Inactive MIRALAX POWD 1 capfull once daily MIRALAX POWD 918631 POLYETHYLENE GLYCOL 3350 Inactive VERAPAMIL HCL ER 180 MG CR-TABS 1 tab po bid VERAPAMIL HCL ER 180 MG CR-TABS VERAPAMIL HCL Inactive LORATADINE 10 MG TABS 1 tab po qd LORATADINE 10 MG TABS 164620 LORATADINE Inactive LYRICA 50 MG CAPS 1 tab po TID LYRICA 50 MG CAPS PREGABALIN Inactive ZALEPLON 10 MG CAPS 1 cap po every other night ZALEPLON 10 MG CAPS 507441 ZALEPLON Inactive SAPHRIS 5 MG SUBL 1 tab po qd SAPHRIS 5 MG SUBL ASENAPINE MALEATE Inactive TRAZODONE HCL 50 MG TABS 1/2 tab po qd prn for anxiety TRAZODONE HCL 50 MG TABS 148331 TRAZODONE HCL Inactive LATUDA 20 MG TABS Take one by mouth daily LATUDA 20 MG TABS LURASIDONE HCL Inactive LISINOPRIL 20 MG TABS 1 tab po qd LISINOPRIL 20 MG TABS 941496 LISINOPRIL Inactive SAPHRIS 10 MG SUBL 1 [...] twice daily BACTRIM DS 800-160 MG TAB 306442 TRIMETHOPRIM-SULFAMETHOXAZOLE Inactive MULTIVITAMINS CAPS Take one by mouth daily MULTIVITAMINS CAPS MULTIPLE VITAMIN Inactive MELATONIN 3 MG CAPS 2 po q hs MELATONIN 3 MG CAPS 651841 MELATONIN Inactive KEFLEX 500 MG ORAL CAPS 1 cap QID by mouth KEFLEX 500 MG ORAL CAPS 792543 CEPHALEXIN Inactive CLINDAMYCIN HCL 150 MG CAPS 1 four times a day CLINDAMYCIN HCL 150 MG CAPS 923692 CLINDAMYCIN HCL Inactive DIFLUCAN 150 MG TAB 1 tablet by mouth daily DIFLUCAN 150 MG TAB 327907 FLUCONAZOLE Inactive PROZAC 20 MG CAP Take one by mouth daily PROZAC 20 MG CAP 266800 FLUOXETINE HCL Inactive IBUPROFEN 600 MG TAB 1 po TID PRN IBUPROFEN 600 MG TAB 771161 IBUPROFEN Inactive VYVANSE 40 MG CAPS 1 daily, VYVANSE 40 MG CAPS LISDEXAMFETAMINE DIMESYLATE Inactive TRAZODONE HCL 100 MG TAB take 1 at bedtime TRAZODONE HCL 100 MG TAB 176558 TRAZODONE HCL Inactive AMITRIPTYLINE HCL 100 MG TAB one at hs AMITRIPTYLINE HCL 100 MG TAB 844806 AMITRIPTYLINE HCL Inactive AMLODIPINE BESYLATE 5 MG TABS 1 tablet by mouth daily AMLODIPINE BESYLATE 5 MG TABS 286079 AMLODIPINE BESYLATE Inactive LATUDA 80 MG TABS Take one by mouth daily LATUDA 80 MG TABS LURASIDONE HCL Inactive SAPHRIS 5 MG SUBL 1 po bid SAPHRIS 5 MG SUBL ASENAPINE MALEATE Inactive CEFDINIR 300 MG CAPS by mouth twice a day CEFDINIR 300 MG CAPS 319336 CEFDINIR Inactive PREDNISONE 20 MG TAB 2 tabs daily for 3 days, 1 tab daily for 3 days, 1/2 tab daily for 2 days PREDNISONE 20 MG TAB 424422 PREDNISONE Inactive BACTRIM DS 800-160 MG TABS 1 po BID x 7 days BACTRIM DS 800-160 MG TABS 19820521 SULFAMETHOXAZOLE-TRIMETHOPRIM Inactive DIFLUCAN 150 MG TABS 1 pill every other day x 2 doses DIFLUCAN 150 MG TABS 805112 FLUCONAZOLE Inactive BACTRIM DS 800-160 MG TABS [...] % 11.6-14.8 platelet count 394 10^3/MM^3 10*3/mm3 131-302 4759/01/11 leukocyte count, blood 13.8 10^3/MM^3 10*3/mm3 4.6-10.2 [...] Panel - Chemistry sodium, serum 139 mmol/L 068-755 5124/12/03 carbon dioxide, venous blood 28.5 mmol/L 21.0-32.0 [...] 5.5 % 4.3-6.0 cholesterol, serum 159 mg/dL 848-232 3419/12/03 triglyceride, serum, fasting 118 mg/dL 30-200 HDL [...] ... - Chemistry sodium, serum 140 mmol/L 005-431 3819/05/28 potassium, serum 4.2 mmol/L 3.5-5.2 chloride, serum [...] Panel - Chemistry sodium, serum 141 mmol/L 140-887 9140 potassium, serum 4.3 mmol/L 3.5-5.2 chloride, serum 106 mmol/L 98-107 carbon dioxide, venous blood 25.7 mmol/L 21.0-32.0 blood glucose 119 mg/dL 65-110 urea nitrogen, blood 22 mg/dL 7-18 creatinine, serum 0.90 mg/dL 0.60-1.30 alanine aminotransferase (SGPT), serum 28 U/L 12-78 aspartate aminotransferase (SGOT), serum 13 U/L 15-37 calcium, serum 8.5 mg/dL 8.5-10.1 bilirubin, serum, total 0.20 mg/dL 0.00-1.00 sodium, serum 139 mmol/L 420-710 8107/12/22 carbon dioxide, venous blood 26.8 mmol/L 21.0-32.0 potassium, serum 4.2 mmol/L 3.5-5.2 chloride, serum 103 mmol/L 98-107 blood glucose 115 mg/dL 65-110 urea nitrogen, blood 20 mg/dL 7-18 creatinine, serum 0.90 mg/dL 0.55-1.30 alanine aminotransferase (SGPT), serum 38 U/L -78 aspartate aminotransferase (SGOT), serum 19 U/L 15-37 calcium, serum 8.6 mg/dL 8.5-10.1 bilirubin, serum, total 0.30 mg/dL 0.00-1.00 sodium, serum 139 mmol/L 838-894 6647/01/11 carbon dioxide, venous blood 26.6 mmol/L 21.0-32.0 [...] Rate - Chemistry sodium, serum 139 mmol/L 969-625 0989/12/11 carbon dioxide, venous blood 25.4 mmol/L 21.0-32.0 [...] 5.5 5.0-8.5 Lab Report: [place] [facility] [place] Chemistry protein, total urine random Negative mg/dL Negative RBC, urine, dipstick Negative Negative human chorionic gonadotropin, urine, qualitative (urine test) Negative Negative Lab Report: UADIP W/MICRO, [place], [facility] [place] Urinalysis urobilinogen, urine, semiquantitative (dipstick) 0.2 Normal leukocyte esterase, urine, by dipstick Negative Negative nitrite, urine, semiquantitative Negative Negative glucose, urine, semiquantitative Negative Negative ketones, urine, by test strip Negative Negative bilirubin, urine Negative Negative urine color Yellow Colorless;Lightyellow;Straw;Yellow appearance, urine Clear Clear specific gravity, urine 1.025 1.000-1.030 pH, urine, semiquantitative 7.0 5.0-8.5 Lab Report: Varicella-Zoater Inga IgG,IgM/45824, HEP Be Antibody/556, RUB ... - Serology rubella antibody, serum, IgG 2.88 Encounters Code Encounter Date Provider Facility CPT-82596 Level 4 Est. Patient 09:00:51 AIRPORT OPERATIONS MANAGER Vishal Hui MD [facility] CPT-56171 Level 3 Est. Patient 11:37:33 AIRPORT OPERATIONS MANAGER Vishal Hui MD [facility] CPT-31930 Level 3 Est. Patient 08:41:09 AIRPORT OPERATIONS MANAGER Vishal Hui MD [facility] CPT-33932 Level 4 Est. Patient 10:19:35 AIRPORT OPERATIONS MANAGER Vishal Hui MD [facility] CPT-93313 Level 3 Est. Patient 13:35:45 CDT Vishal Hui MD [facility]-12386 Level 4 Est. Patient 10:08:37 CDT Vishal Hui MD [facility]-55122 Level 3 Est. Patient 11:22:10 CDT Vishal Hui MD [facility]-25389 Level 3 Est. Patient 11:03:32 CDT Sahara Rodriguez MD [facility]-86319 Level 3 Est. Patient 09:41:35 CDT Vishal Hui MD [facility]-28772 Level 3 Est. Patient 12:00:41 CDT Neeraj Collins MD [facility]-84001 Level 3 Est. Patient 09:16:24 CDT Vishal Hui MD [facility]-22849 Level 4 Est. Patient 13:59:09 CDT Neeraj Collins MD [facility]-81960 Level 3 Est. Patient 15:19:43 CDT Renzo Thornton DO [facility]-87687 Level 3 Est. Patient 18:10:26 CDT Sahara Rodriguez MD [facility]-62968 Level 3 Est. Patient 14:49:50 CDT Vishal Hui MD [facility]-10593 Level 4 Est. Patient 18:41:46 CDT Neeraj Collins MD [facility]-93476 Level 4 Est. Patient 09:18:38 AIRPORT OPERATIONS MANAGER Vishal Hui MD [facility]-47909 Level 3 Est. Patient 14:43:55 AIRPORT OPERATIONS MANAGER Vishal Hui MD [facility]-09672 Level 3 Est. Patient 15:26:33 AIRPORT OPERATIONS MANAGER Sahara Rodriguez MD PhD [facility] CPT-66057 Level 3 Est. Patient 10:32:14 AIRPORT OPERATIONS MANAGER Vishal Hui MD [facility] CPT-59189 Level 3 Est. Patient 15:12:52 AIRPORT OPERATIONS MANAGER Vishal Hui MD [facility] CPT-20322 Level 4 Est. Patient 09:19:27 CDT Vishal Hui MD [facility] CPT-48960 Level 3 Est. Patient 15:53:00 CDT Renzo Thornton [facility] CPT-34843 Level 3 Est. Patient 15:50:30 CDT Renzo Thornton [facility] CPT-31862 Level 3 Est. Patient 16:55:24 CDT Vishal Hui MD [facility] Procedures Code Procedure Name Date Entry Date Standard Description CPT-J3420 Vitamin B12 1000mcg (Cyanocobalamin) 08:10:26 AIRPORT OPERATIONS MANAGER 04/12 CPT-82365 Abx/Therapy Injection 08:10:26 AIRPORT OPERATIONS MANAGER CPT-G0438 Initial Annual Wellness Exam 19:01:01 AIRPORT OPERATIONS MANAGER CPT-J3420 Vitamin B12 1000mcg (Cyanocobalamin) 16:57:46 CDT 08/14 CPT-65940 Recombivax HB Injection Suspension 5 MCG/0.5ML 08:37:50 AIRPORT OPERATIONS MANAGER CPT-68361 Immunization Single Admin 08:37:50 AIRPORT OPERATIONS MANAGER CPT-J3420 Vitamin B12 1000mcg (Cyanocobalamin) 08:32:16 AIRPORT OPERATIONS MANAGER 03/11 CPT-36561 Abx/Therapy Injection 08:32:16 AIRPORT OPERATIONS MANAGER CPT-88998 Chest 2V Frontal and Lat 11:46:38 AIRPORT OPERATIONS MANAGER CPT-44720 Venipuncture Draw Fee 09:12:45 AIRPORT OPERATIONS MANAGER CPT-J3420 Vitamin B12 1000mcg (Cyanocobalamin) 08:50:15 AIRPORT OPERATIONS MANAGER 02/08 CPT-56739 Abx/Therapy Injection 08:50:15 AIRPORT OPERATIONS MANAGER CPT-Cryo Cryotherapy 10:19:35 AIRPORT OPERATIONS MANAGER CPT-000 Give Appropriate Flu Vaccine 09:22:16 CDT CPT-J3420 Vitamin B12 1000mcg (Cyanocobalamin) 19:08:57 CDT 01/11 CPT-13703 Abx/Therapy Injection 19:08:57 CDT CPT-J3420 Vitamin B12 1000mcg (Cyanocobalamin) 08:19:08 CDT 12/11 CPT-64305 Abx/Therapy Injection 08:19:08 CDT CPT-J3420 Vitamin B12 1000mcg (Cyanocobalamin) 14:48:00 CDT 11/09 CPT-71397 Abx/Therapy Injection 14:47:59 CDT CPT-J3420 Vitamin B12 1000mcg (Cyanocobalamin) 08:34:04 CDT 10/09 CPT-50182 Abx/Therapy Injection 08:34:04 CDT CPT-J3420 Vitamin B12 1000mcg (Cyanocobalamin) 09:18:52 CDT 09/11 CPT-78280 Abx/Therapy Injection 09:18:52 CDT CPT-J3420 Vitamin B12 1000mcg (Cyanocobalamin) 08:35:44 CDT 09/04 CPT-35690 Abx/Therapy Injection 08:35:44 CDT CPT-04084 Immunization Single Admin 11:07:16 CDT CPT-52167 Hepatitis B adult IM 11:07:16 CDT CPT-J3420 Vitamin B12 1000mcg (Cyanocobalamin) 11:00:49 CDT 08/28 CPT-J1040 Depo Medrol 80 mg (Methyl Prednisolone Acetate) 11:00: 49 CDT CPT-20608 Abx/Therapy Injection 11:00:49 CDT CPT-J1040 Depo Medrol 80 mg (Methyl Prednisolone Acetate) 09:16: 23 CDT CPT-J3420 Vitamin B12 1000mcg (Cyanocobalamin) 08:27:05 CDT 08/20 CPT-14842 Abx/Therapy Injection 08:27:05 CDT CPT-68644 Recombivax HB Injection Suspension 5 MCG/0.5ML 10:00:41 CDT CPT-23924 Administration single or combination vaccine inc oral 10 :00:41 CDT CPT-76029 Sono transvag pelvis non OB uterus ovaries cervix 16:36: 57 CDT CPT-99752 LS spine comp w obliq 09:50:55 AIRPORT OPERATIONS MANAGER CPT-54726 Abd compl w upright 09:50:55 AIRPORT OPERATIONS MANAGER CPT-J1100 Decadron 4mg (Dexamethasone) 15:51:24 AIRPORT OPERATIONS MANAGER CPT-J1030 Depo Medrol 40 mg (Methyl Prednisolone Acetate) 15:51: 24 AIRPORT OPERATIONS MANAGER CPT-97549 Abx/Therapy Injection 15:51:24 AIRPORT OPERATIONS MANAGER CPT-J1100 Decadron 4mg (Dexamethasone) 15:26:33 AIRPORT OPERATIONS MANAGER CPT-J1030 Depo Medrol 40 mg (Methyl Prednisolone Acetate) 15:26: 33 AIRPORT OPERATIONS MANAGER CPT-80622 Sono retroperitoneal complete kidneys and bladder 17:15: 30 CDT CPT-36959 Abd compl w upright 16:09:25 CDT CPT-J1100 Decadron 8mg (Dexamethasone) 17:07:57 CDT CPT-47759 Abx/Therapy Injection 17:07:57 CDT CPT-J1100 Decadron 8mg (Dexamethasone) 16:55:24 CDT CPT-69966 Chest 2V Frontal and Lat 16:32:44 CDT
--- OUTSIDE RECORDS SUMMARY | 2016-11-04 15:10 | XMS REPORT | Clinical Summary ---
Author Author Admin, Dereck Organization [facility] Address Unknown Phone Unavailable Allergies, Adverse Reactions, [...] sites Morbid obesity 278.01 Active Juliet Kimbrough IMAGING SCIENCE PROFESSOR Morbid obesity 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 Active Juliet Kimbrough IMAGING SCIENCE PROFESSOR Dependence on other enabling machines and devices [...] Shortness of breath 786.05 Active Fabiola Johnson IMAGING SCIENCE PROFESSOR Shortness of breath Nocturnal hypoxia 799.02 Active Fabiola Johnson IMAGING SCIENCE PROFESSOR Hypoxemia Anxiety Disorder ICD-300.00 Inactive Vishal Hui [...] Instructions Start Date Stop Date Generic Name [facility] [place] Status Provider Patient Instruction FLUTICASONE PROPIONATE 50 MCG/ACT SUSP 2 sprays each nostril daily before bed. FLUTICASONE PROPIONATE 89261270600 Active Fabiola Johnson APRN Active VERAPAMIL HCL ER 120 MG ORAL CR-TABS 1 tab po daily for blood pressure 09/27 VERAPAMIL HCL 94437181085 Active Fabiola Johnson APRN Active ADZENYS XR-ODT 6.3 MG ORAL TBED 1 tab po daily for ADHD AMPHETAMINE 37299475189 Active Fabiola Johnson APRN Active BENADRYL 25 MG CAP 4 po at bedtime for insomnia DIPHENHYDRAMINE HCL 11783214483 Active Fabiola Johnson APRN Active KLONOPIN 1 MG ORAL TABS 1 tab po TID CLONAZEPAM 55667998952 Active Fabiola Johnson APRN Active VALIUM 5 MG TAB Take 1-2 tablets daily DIAZEPAM 85975319569 No Longer Active Fabiola Johnson APRN Active METOPROLOL TARTRATE 25 MG ORAL TABS 1/2 tablet twice daily for heart rate and blood pressure METOPROLOL TARTRATE 14027870621 No Longer Active Fabiola Johnson APRN Active MIRALAX ORAL POWD 17GMS DAILY IN WATER POLYETHYLENE GLYCOL 3350 09214094313 Active Vishal Hui MD Active VIIBRYD 10 MG ORAL TABS Take 1 tablet once a day VILAZODONE HCL 60596898301 Active Ahmet Carbajal MD Active DICLOFENAC POTASSIUM TABS Take 1 tablet twice a day (pt. is not sure of the dose.) DICLOFENAC POTASSIUM TABS 97391443229 Active Ahmet Carbajal MD Active MIRALAX PACK 1 po qd PRN Constipation POLYETHYLENE GLYCOL 3350 29968704738 No Longer Active Ahmet Carbajal MD Active MINIPRESS 2 MG CAPS 4 cap po at night PRAZOSIN HCL 28517929256 No Longer Active Ahmet Carbajal MD Active PIROXICAM 20 MG CAPS 1 cap po qd PRN Pain PIROXICAM 32568421943 No Longer Active Ahmet Carbajal MD Active TRAMADOL HCL 50 MG TABS 1-2 po TID PRN Pain TRAMADOL HCL 24365082303 No Longer Active Ahmet Carbajal MD Active METOPROLOL TARTRATE 50 MG TAB 1 po bid METOPROLOL TARTRATE 75976211384 No Longer Active Ahmet Carbajal MD Active ABILIFY 15 MG ORAL TABS 1 tab daily ARIPIPRAZOLE 38761862399 No Longer Active Ahmet Carbajal MD Active PROZAC 20 MG ORAL CAPS 1 tab daily FLUOXETINE HCL 42862146761 No Longer Active Ahmet Carbajal MD Active AMBIEN 5 MG ORAL TABS 1 tab at bedtime ZOLPIDEM TARTRATE 39285430651 No Longer Active Ahmet Carbajal MD Active PREDNISONE 20 MG TAB 2 tabs daily for 4 days, 1 tab daily for 4 days, 1/2 tab daily for 4 days PREDNISONE 03857462280 No Longer Active Ahmet Carbajal MD Active KEFLEX 500 MG CAP 1 po TID x 10 days CEPHALEXIN 17853678608 No Longer Active Vishal Hui MD Active ABILIFY MAINTENA 400 MG IM SUSR Injection once per month ARIPIPRAZOLE 88317912443 Active Juliet Kimbrough APRN Active IMITREX 50 MG ORAL TABS 1/2 tab every 6 hours prn SUMATRIPTAN SUCCINATE 16713732248 Active Luigi Martínez APRN Active TOPAMAX 50 MG ORAL TABS 1 tab twice daily TOPIRAMATE 77732728147 Active Vishal Hui MD Active SAPHRIS 5 MG SUBL 1 po bid ASENAPINE MALEATE 26164106124 No Longer Active Luigi Martínez APRN Active LATUDA 80 MG TABS Take one by mouth daily LURASIDONE HCL 71253356225 No Longer Active Luigi Martínez APRN Active AMLODIPINE BESYLATE 5 MG TABS 1 tablet by mouth daily AMLODIPINE BESYLATE 51410132359 No Longer Active Luigi Martínez APRN Active AMITRIPTYLINE HCL 100 MG TAB one at hs AMITRIPTYLINE HCL 59601155028 No Longer Active Vishal Hui MD Active TRAZODONE HCL 100 MG TAB take 1 at bedtime TRAZODONE HCL 74989077915 No Longer Active Vishal Hui MD Active VYVANSE 40 MG CAPS 1 daily, LISDEXAMFETAMINE DIMESYLATE 73868066557 No Longer Active Vishal Hui MD Active IBUPROFEN 600 MG TAB 1 po TID PRN IBUPROFEN 96099304386 No Longer Active Vishal Hui MD Active PROZAC 20 MG CAP Take one by mouth daily FLUOXETINE HCL 89793878686 No Longer Active Vishal Hui MD Active ZOFRAN 4 MG TABS 1 po q6hr PRN Nausea ONDANSETRON HCL Active Vishal Hui MD Active BACTRIM DS 800-160 MG TABS 1 pill by mouth twice daily SULFAMETHOXAZOLE-TRIMETHOPRIM 96855006625 No Longer Active Sahara Rodriguez MD PhD Active DIFLUCAN 150 MG TAB 1 tablet by mouth daily FLUCONAZOLE 28765140376 No Longer Active Vishal Hui MD Active TIZANIDINE HCL 4 MG TABS 1 po q6hr PRN Muscle Spasm/Back Pain TIZANIDINE HCL 69812996426 Active Luigi Martínez APRN Active CLINDAMYCIN HCL 150 MG CAPS 1 four times a day CLINDAMYCIN HCL 33739218885 No Longer Active Neeraj Collins MD Active KEFLEX 500 MG ORAL CAPS 1 cap QID by mouth CEPHALEXIN 03998008585 No Longer Active Neeraj Collins MD Active DIFLUCAN 150 MG TABS 1 pill every other day x 2 doses FLUCONAZOLE 81904325617 No Longer Active Sahara Rodriguez MD PhD Active MELATONIN 3 MG CAPS 2 po q hs MELATONIN 51800775647 No Longer Active Sahara Rodriguez MD PhD Active MULTIVITAMINS CAPS Take one by mouth daily MULTIPLE VITAMIN 86147867016 No Longer Active Sahara Rodriguez MD PhD Active BACTRIM DS 800-160 MG TAB 1 tab by mouth twice daily TRIMETHOPRIM-SULFAMETHOXAZOLE 26637921542 No Longer Active Sahara Rodriguez MD PhD Active [facility] PROBIOTIC ORAL CHEW 2 daily po PROBIOTIC PRODUCT 81958105354 No Longer Active Sahara Rodriguez MD PhD Active BACTRIM DS 800-160 MG TABS 1 po BID x 7 days SULFAMETHOXAZOLE-TRIMETHOPRIM 11216623153 No Longer Active Vishal Hui MD Active CHANTIX STARTING MONTH EARNEST 0.5 MG X 11 & 1 MG X 42 TABS 0.5mg daily for 3 days , then 0.5mg BID for 4 days, then 1mg BID VARENICLINE TARTRATE 91903433787 No Longer Active TAMARA Gray Active VERAPAMIL HCL CR 120 MG TAB CR 1 po bid VERAPAMIL HCL 57352039998 No Longer Active Vishal Hui MD Active METOPROLOL SUCCINATE 50 MG TB24 1 tablet by mouth daily METOPROLOL SUCCINATE 13192135915 No Longer Active Vishal Hui MD Active SAPHRIS 10 MG SUBL 1 tab po bid ASENAPINE MALEATE 38965480858 No Longer Active Vishal Hui MD Active LISINOPRIL 20 MG TABS 1 tab po qd LISINOPRIL 77382715180 No Longer Active Vishal Hui MD Active LATUDA 20 MG TABS Take one by mouth daily LURASIDONE HCL 36772187932 No Longer Active Vishal Hui MD Active TRAZODONE HCL 50 MG TABS 1/2 tab po qd prn for anxiety TRAZODONE HCL 47967594934 No Longer Active Vishal Hiu MD Active OMEPRAZOLE 20 MG TBEC 1 po q a.m. 30min prior to first food intake OMEPRAZOLE 59646949843 Active Vishal Hui MD Active RANITIDINE HCL 150 MG CAPS 1 twice a day RANITIDINE HCL 60672757041 Active Luigi Martínez APRN Active LINZESS 290 MCG CAPS Take one by mouth daily LINACLOTIDE 22998068434 No Longer Active Vishal Hui MD Active SAPHRIS 5 MG SUBL 1 tab po qd ASENAPINE MALEATE 56855666025 No Longer Active Vishal Hui MD Active ZALEPLON 10 MG CAPS 1 cap po every other night ZALEPLON 17105123439 No Longer Active Vishal Hui MD Active LYRICA 50 MG CAPS 1 tab po TID PREGABALIN 61445452609 No Longer Active Vishal Hui MD Active LORATADINE 10 MG TABS 1 tab po qd LORATADINE 90679577487 No Longer Active Vishal Hui MD Active VERAPAMIL HCL ER 180 MG CR-TABS 1 tab po bid VERAPAMIL HCL 54652409970 No Longer Active Vishal Hui MD Active MIRALAX POWD 1 capfull once daily POLYETHYLENE GLYCOL 3350 58312145381 No Longer Active Vishal Hui MD Active PREDNISONE 20 MG TABS 1 tab po qd PREDNISONE 31089183307 No Longer Active Renzo Thornton DO Active LEVOFLOXACIN 500 MG TABS 1 tab po qd LEVOFLOXACIN 91875444673 No Longer Active Renzo Thornton DO Active BUSPIRONE HCL 15 MG TABS 1 tab po TID BUSPIRONE HCL 62439175625 No Longer Active Renzo Thornton DO Active BENZTROPINE MESYLATE 1 MG TABS 1 tab po qd BENZTROPINE MESYLATE 84290110954 No Longer Active Renzo Thornton DO Active ATENOLOL 25 MG TABS 1 tab po qd ATENOLOL 50798627247 No Longer Active Renzo Thornton DO Active ESCITALOPRAM OXALATE 20 MG TABS 1 tab po qd ESCITALOPRAM OXALATE 20313369538 No Longer Active Renzo Thornton DO Active ADVAIR DISKUS 250-50 MCG/DOSE AEPB 1 puff BID FLUTICASONE-SALMETEROL 17604036849 No Longer Active Renzo Thornton DO Active PREDNISONE 20 MG TAB 2 tabs daily for 3 days, 1 tab daily for 3 days, 1/2 tab daily for 2 days PREDNISONE 56071114336 No Longer Active Vishal Hui MD Active CEFDINIR 300 MG CAPS by mouth twice a day CEFDINIR 80043337872 No Longer Active Vishal Hui MD Active LANSOPRAZOLE 30 MG CPDR 1 cap po qd LANSOPRAZOLE 30332961354 No Longer Active Vishal Hui MD Active BACLOFEN 20 MG TABS 1 tab po tid BACLOFEN 97166026343 No Longer Active Vishal Hui MD Active ADVAIR DISKUS 250-50 MCG/DOSE AEPB 1 puff BID ADVAIR DISKUS 250-50 MCG/DOSE AEPB FLUTICASONE-SALMETEROL Inactive ESCITALOPRAM OXALATE 20 MG TABS 1 tab po qd ESCITALOPRAM OXALATE 20 MG TABS 193022 ESCITALOPRAM OXALATE Inactive ATENOLOL 25 MG TABS 1 tab po qd ATENOLOL 25 MG TABS 734416 ATENOLOL Inactive BENZTROPINE MESYLATE 1 MG TABS 1 tab po qd BENZTROPINE MESYLATE 1 MG TABS 736943 BENZTROPINE MESYLATE Inactive BUSPIRONE HCL 15 MG TABS 1 tab po TID BUSPIRONE HCL 15 MG TABS 716256 BUSPIRONE HCL Inactive LEVOFLOXACIN 500 MG TABS 1 tab po qd LEVOFLOXACIN 500 MG TABS 754131 LEVOFLOXACIN Inactive PREDNISONE 20 MG TABS 1 tab po qd PREDNISONE 20 MG TABS 502161 PREDNISONE Inactive MIRALAX POWD 1 capfull once daily MIRALAX POWD 416301 POLYETHYLENE GLYCOL 3350 Inactive VERAPAMIL HCL ER 180 MG CR-TABS 1 tab po bid VERAPAMIL HCL ER 180 MG CR-TABS VERAPAMIL HCL Inactive LORATADINE 10 MG TABS 1 tab po qd LORATADINE 10 MG TABS 699300 LORATADINE Inactive LYRICA 50 MG CAPS 1 tab po TID LYRICA 50 MG CAPS PREGABALIN Inactive ZALEPLON 10 MG CAPS 1 cap po every other night ZALEPLON 10 MG CAPS 931736 ZALEPLON Inactive SAPHRIS 5 MG SUBL 1 tab po qd SAPHRIS 5 MG SUBL ASENAPINE MALEATE Inactive TRAZODONE HCL 50 MG TABS 1/2 tab po qd prn for anxiety TRAZODONE HCL 50 MG TABS 853750 TRAZODONE HCL Inactive LATUDA 20 MG TABS Take one by mouth daily LATUDA 20 MG TABS LURASIDONE HCL Inactive LISINOPRIL 20 MG TABS 1 tab po qd LISINOPRIL 20 MG TABS 457905 LISINOPRIL Inactive SAPHRIS 10 MG SUBL 1 [...] twice daily BACTRIM DS 800-160 MG TAB 956971 TRIMETHOPRIM-SULFAMETHOXAZOLE Inactive MULTIVITAMINS CAPS Take one by mouth daily MULTIVITAMINS CAPS MULTIPLE VITAMIN Inactive MELATONIN 3 MG CAPS 2 po q hs MELATONIN 3 MG CAPS 704558 MELATONIN Inactive KEFLEX 500 MG ORAL CAPS 1 cap QID by mouth KEFLEX 500 MG ORAL CAPS 879736 CEPHALEXIN Inactive CLINDAMYCIN HCL 150 MG CAPS 1 four times a day CLINDAMYCIN HCL 150 MG CAPS 017750 CLINDAMYCIN HCL Inactive DIFLUCAN 150 MG TAB 1 tablet by mouth daily DIFLUCAN 150 MG TAB 330875 FLUCONAZOLE Inactive PROZAC 20 MG CAP Take one by mouth daily PROZAC 20 MG CAP 179831 FLUOXETINE HCL Inactive IBUPROFEN 600 MG TAB 1 po TID PRN IBUPROFEN 600 MG TAB 985579 IBUPROFEN Inactive VYVANSE 40 MG CAPS 1 daily, VYVANSE 40 MG CAPS LISDEXAMFETAMINE DIMESYLATE Inactive TRAZODONE HCL 100 MG TAB take 1 at bedtime TRAZODONE HCL 100 MG TAB 969961 TRAZODONE HCL Inactive AMITRIPTYLINE HCL 100 MG TAB one at hs AMITRIPTYLINE HCL 100 MG TAB 712677 AMITRIPTYLINE HCL Inactive AMLODIPINE BESYLATE 5 MG TABS 1 tablet by mouth daily AMLODIPINE BESYLATE 5 MG TABS 327172 AMLODIPINE BESYLATE Inactive LATUDA 80 MG TABS Take one by mouth daily LATUDA 80 MG TABS LURASIDONE HCL Inactive SAPHRIS 5 MG SUBL 1 po bid SAPHRIS 5 MG SUBL ASENAPINE MALEATE Inactive PREDNISONE 20 MG TAB 2 tabs daily for 4 days, 1 tab daily for 4 days, 1/2 tab daily for 4 days PREDNISONE 20 MG TAB 567491 PREDNISONE Inactive AMBIEN 5 MG ORAL TABS 1 tab at bedtime AMBIEN 5 MG ORAL TABS 932280 ZOLPIDEM TARTRATE Inactive PROZAC 20 MG ORAL CAPS 1 tab daily PROZAC 20 MG ORAL CAPS 510229 FLUOXETINE HCL Inactive ABILIFY 15 MG ORAL TABS 1 tab daily ABILIFY 15 MG ORAL TABS 626662 ARIPIPRAZOLE Inactive METOPROLOL TARTRATE 50 MG TAB 1 po bid METOPROLOL TARTRATE 50 MG TAB 802126 METOPROLOL TARTRATE Inactive TRAMADOL HCL 50 MG TABS 1-2 po TID PRN Pain TRAMADOL HCL 50 MG TABS 599572 TRAMADOL HCL Inactive PIROXICAM 20 MG CAPS 1 cap po qd PRN Pain PIROXICAM 20 MG CAPS 211792 PIROXICAM Inactive MINIPRESS 2 MG CAPS 4 cap po at night MINIPRESS 2 MG CAPS 700237 PRAZOSIN HCL Inactive MIRALAX PACK 1 po qd PRN Constipation MIRALAX PACK 330256 POLYETHYLENE GLYCOL 3350 Inactive METOPROLOL TARTRATE 25 MG ORAL TABS 1/2 tablet twice daily for heart rate and blood pressure METOPROLOL TARTRATE 25 MG ORAL TABS 326738 METOPROLOL TARTRATE Inactive VALIUM 5 MG TAB Take 1-2 tablets daily VALIUM 5 MG TAB 180839 DIAZEPAM Inactive CEFDINIR 300 MG CAPS by mouth twice a day CEFDINIR 300 MG CAPS 641004 CEFDINIR Inactive PREDNISONE 20 MG TAB 2 tabs daily for 3 days, 1 tab daily for 3 days, 1/2 tab daily for 2 days PREDNISONE 20 MG TAB 137670 PREDNISONE Inactive BACTRIM DS 800-160 MG TABS 1 po BID x 7 days BACTRIM DS 800-160 MG TABS 762557 SULFAMETHOXAZOLE-TRIMETHOPRIM Inactive DIFLUCAN 150 MG TABS 1 pill every other day x 2 doses DIFLUCAN 150 MG TABS 562501 FLUCONAZOLE Inactive BACTRIM DS 800-160 MG TABS 1 pill by mouth twice daily BACTRIM DS 800-160 MG TABS 102660 SULFAMETHOXAZOLE-TRIMETHOPRIM Inactive KEFLEX 500 MG CAP 1 po TID x 10 days KEFLEX 500 MG CAP 832978 CEPHALEXIN Inactive Advance Directives Directive Description Start [...] % 11.6-14.8 platelet count 394 10^3/MM^3 10*3/mm3 328-630 8721/01/11 leukocyte count, blood 13.8 10^3/MM^3 10*3/mm3 4.6-10.2 [...] Panel - Chemistry sodium, serum 139 mmol/L 817-715 3465/12/03 carbon dioxide, venous blood 28.5 mmol/L 21.0-32.0 [...] 5.5 % 4.3-6.0 cholesterol, serum 159 mg/dL 723-509 0122/12/03 triglyceride, serum, fasting 118 mg/dL 30-200 HDL [...] Panel - Chemistry sodium, serum 139 mmol/L 330-169 3488/12/22 carbon dioxide, venous blood 26.8 mmol/L 21.0-32.0 potassium, serum 4.2 mmol/L 3.5-5.2 chloride, serum 103 mmol/L 98-107 blood glucose 115 mg/dL 65-110 urea nitrogen, blood 20 mg/dL 7-18 creatinine, serum 0.90 mg/dL 0.55-1.30 alanine aminotransferase (SGPT), serum 38 U/L - aspartate aminotransferase (SGOT), serum 19 U/L 15-37 calcium, serum 8.6 mg/dL 8.5-10.1 bilirubin, serum, total 0.30 mg/dL 0.00-1.00 sodium, serum 139 mmol/L 277-571 9651/01/11 carbon dioxide, venous blood 26.6 mmol/L 21.0-32.0 potassium, serum 4.1 mmol/L 3.5-5.2 chloride, serum 100 mmol/L 98-107 blood glucose 86 mg/dL 65-110 urea nitrogen, blood 16 mg/dL 7-18 creatinine, serum 1.00 mg/dL 0.55-1.30 alanine aminotransferase (SGPT), serum 48 U/L -78 aspartate aminotransferase (SGOT), serum 17 U/L 15-37 calcium, serum 9.1 mg/dL 8.5-10.1 bilirubin, serum, total 0.40 mg/dL 0.00-1.00 sodium, serum 142 mmol/L 222-587 4216/06/08 carbon dioxide, venous blood 27.6 mmol/L 21.0-32.0 [...] Rate - Chemistry sodium, serum 139 mmol/L 007-051 3310/12/11 carbon dioxide, venous blood 25.4 mmol/L 21.0-32.0 [...] mg/dL Encounters Code Encounter Date Provider Facility CPT-67120 Level 4 Est. Patient 12:11:48 CDT Fabiola Johnson APRN [facility] CPT-75623 Level 3 New Patient 16:53:37 CDT Albert Caldera MD [facility] CPT-14408 Level 3 Est. Patient 11:25:49 CDT Renzo Thornton DO [facility] CPT-81244 Level 3 Est. Patient 15:22:01 CDT Ahmet Carbajal MD [facility] CPT-29481 Level 4 Est. Patient 09:00:51 LINEN ROOM CUSTODIAN Vishal Hui MD [facility] CPT-54657 Level 3 Est. Patient 11:37:33 LINEN ROOM CUSTODIAN Vishal Hui MD [facility] CPT-57749 Level 3 Est. Patient 08:41:09 LINEN ROOM CUSTODIAN Vishal Hui MD [facility] CPT-18073 Level 4 Est. Patient 10:19:35 LINEN ROOM CUSTODIAN Vishal Hui MD [facility] CPT-37042 Level 3 Est. Patient 13:35:45 CDT Vishal Hui MD [facility] CPT-33739 Level 4 Est. Patient 10:08:37 CDT Vishal Hui MD [facility]-49845 Level 3 Est. Patient 11:22:10 CDT Vishal Hui MD [facility] CPT-59622 Level 3 Est. Patient 11:03:32 CDT Sahara Rodriguez MD [facility]-00468 Level 3 Est. Patient 09:41:35 CDT Vishal Hui MD [facility] CPT-52821 Level 3 Est. Patient 12:00:41 CDT Neeraj Collins MD [facility] CPT-22698 Level 3 Est. Patient 09:16:24 CDT Vishal Hui MD [facility]-23698 Level 4 Est. Patient 13:59:09 CDT Neeraj Collins MD [facility]-43480 Level 3 Est. Patient 15:19:43 CDT Renzo Thornton DO [facility] CPT-82737 Level 3 Est. Patient 18:10:26 CDT Sahara Rodriguez MD [facility] CPT-28281 Level 3 Est. Patient 14:49:50 CDT Vishal Hui MD [facility]-64344 Level 4 Est. Patient 18:41:46 CDT Neeraj Collins MD [facility]-96569 Level 4 Est. Patient 09:18:38 LINEN ROOM CUSTODIAN Vishal Hui MD [facility]-98886 Level 3 Est. Patient 14:43:55 LINEN ROOM CUSTODIAN Vishal Hui MD [facility] CPT-29673 Level 3 Est. Patient 15:26:33 LINEN ROOM CUSTODIAN Sahara Rodriguez MD [facility]-47501 Level 3 Est. Patient 10:32:14 LINEN ROOM CUSTODIAN Vishal Hui MD [facility]-10143 Level 3 Est. Patient 15:12:52 LINEN ROOM CUSTODIAN Vishal Hui MD [facility] CPT-60019 Level 4 Est. Patient 09:19:27 CDT Vishal Hui MD [facility] CPT-67392 Level 3 Est. Patient 15:53:[address] [facility] CPT-19678 Level 3 Est. Patient 15:50:[address] [facility] CPT-27499 Level 3 Est. Patient 16:55:24 CDT Vishal Hui MD [facility] Procedures Code Procedure Name Date Entry Date Standard Description CPT-06100 Chest 2V Frontal and Lat - XRAY USE ONLY 11:06:31 CDT CPT-49307 EKG Trac and Interp - XRAY USE ONLY 11:31:43 CDT 08/26 CPT-J3420 Vitamin B12 1000mcg (Cyanocobalamin) 08:10:26 LINEN ROOM CUSTODIAN 04/12 CPT-21927 Abx/Therapy Injection 08:10:26 LINEN ROOM CUSTODIAN CPT-G0438 Initial Annual Wellness Exam 19:01:01 LINEN ROOM CUSTODIAN CPT-J3420 Vitamin B12 1000mcg (Cyanocobalamin) 16:57:46 CDT 08/14 CPT-77940 Recombivax HB Injection Suspension 5 MCG/0.5ML 08:37:50 LINEN ROOM CUSTODIAN CPT-40452 Immunization Single Admin 08:37:50 LINEN ROOM CUSTODIAN CPT-J3420 Vitamin B12 1000mcg (Cyanocobalamin) 08:32:16 LINEN ROOM CUSTODIAN 03/11 CPT-09776 Abx/Therapy Injection 08:32:16 LINEN ROOM CUSTODIAN CPT-84378 Chest 2V Frontal and Lat 11:46:38 LINEN ROOM CUSTODIAN CPT-20998 Venipuncture Draw Fee 09:12:45 LINEN ROOM CUSTODIAN CPT-J3420 Vitamin B12 1000mcg (Cyanocobalamin) 08:50:15 LINEN ROOM CUSTODIAN 02/08 CPT-98484 Abx/Therapy Injection 08:50:15 LINEN ROOM CUSTODIAN CPT-Cryo Cryotherapy 10:19:35 LINEN ROOM CUSTODIAN CPT-000 Give Appropriate Flu Vaccine 09:22:16 CDT CPT-J3420 Vitamin B12 1000mcg (Cyanocobalamin) 19:08:57 CDT 01/11 CPT-00716 Abx/Therapy Injection 19:08:57 CDT CPT-J3420 Vitamin B12 1000mcg (Cyanocobalamin) 08:19:08 CDT 12/11 CPT-16354 Abx/Therapy Injection 08:19:08 CDT CPT-J3420 Vitamin B12 1000mcg (Cyanocobalamin) 14:48:00 CDT 11/09 CPT-17612 Abx/Therapy Injection 14:47:59 CDT CPT-J3420 Vitamin B12 1000mcg (Cyanocobalamin) 08:34:04 CDT 10/09 CPT-62548 Abx/Therapy Injection 08:34:04 CDT CPT-J3420 Vitamin B12 1000mcg (Cyanocobalamin) 09:18:52 CDT 09/11 CPT-07198 Abx/Therapy Injection 09:18:52 CDT CPT-J3420 Vitamin B12 1000mcg (Cyanocobalamin) 08:35:44 CDT 09/04 CPT-14324 Abx/Therapy Injection 08:35:44 CDT CPT-14336 Immunization Single Admin 11:07:16 CDT CPT-49630 Hepatitis B adult IM 11:07:16 CDT CPT-J3420 Vitamin B12 1000mcg (Cyanocobalamin) 11:00:49 CDT 08/28 CPT-J1040 Depo Medrol 80 mg (Methyl Prednisolone Acetate) 11:00: 49 CDT CPT-61684 Abx/Therapy Injection 11:00:49 CDT CPT-J1040 Depo Medrol 80 mg (Methyl Prednisolone Acetate) 09:16: 23 CDT CPT-J3420 Vitamin B12 1000mcg (Cyanocobalamin) 08:27:05 CDT 08/20 CPT-61306 Abx/Therapy Injection 08:27:05 CDT CPT-32896 Recombivax HB Injection Suspension 5 MCG/0.5ML 10:00:41 CDT CPT-71395 Administration single or combination vaccine inc oral 10 :00:41 CDT CPT-50440 Sono transvag pelvis non OB uterus ovaries cervix 16:36: 57 CDT CPT-94881 LS spine comp w obliq 09:50:55 LINEN ROOM CUSTODIAN CPT-47696 Abd compl w upright 09:50:55 LINEN ROOM CUSTODIAN CPT-J1100 Decadron 4mg (Dexamethasone) 15:51:24 LINEN ROOM CUSTODIAN CPT-J1030 Depo Medrol 40 mg (Methyl Prednisolone Acetate) 15:51: 24 LINEN ROOM CUSTODIAN CPT-76865 Abx/Therapy Injection 15:51:24 LINEN ROOM CUSTODIAN CPT-J1100 Decadron 4mg (Dexamethasone) 15:26:33 LINEN ROOM CUSTODIAN CPT-J1030 Depo Medrol 40 mg (Methyl Prednisolone Acetate) 15:26: 33 LINEN ROOM CUSTODIAN CPT-61640 Sono retroperitoneal complete kidneys and bladder 17:15: 30 CDT CPT-05725 Abd compl w upright 16:09:25 CDT CPT-J1100 Decadron 8mg (Dexamethasone) 17:07:57 CDT CPT-76669 Abx/Therapy Injection 17:07:57 CDT CPT-J1100 Decadron 8mg (Dexamethasone) 16:55:24 CDT CPT-26289 Chest 2V Frontal and Lat 16:32:44 CDT
--- OUTSIDE RECORDS SUMMARY | 2016-11-04 15:11 | XMS REPORT | Clinical Summary ---
Author Author Admin, [facility] Organization [facility] Address Unknown Phone Unavailable Allergies, Adverse Reactions, Alerts Allergy Name Reaction Description Start Date Severity Status Provider FANAPT heart palpitations Critical Active Vishal Hui MD SEROQUEL Critical Active Vishal Hui MD AUGMENTIN Critical Active Vsihal Hui MD AMOXICILLIN Critical Active Vishal Hui [...] Trevino Other B-complex deficiencies Vaginitis, candidal 112.1 Active Neeraj Collins MD Candidiasis of vulva and vagina Other abnormal blood chemistry 790.6 Active Radha MCDONALD Other abnormal blood chemistry Pneumonia, organism unspecified [...] TAB 1 tablet by mouth daily FLUCONAZOLE 92386865002 Active Neeraj Collins MD Active TIZANIDINE HCL 4 MG TABS 1 po q6hr PRN Muscle Spasm/Back Pain TIZANIDINE HCL 50106993749 Active Vishal Hui MD Active CLINDAMYCIN HCL 150 MG CAPS 1 four times a day CLINDAMYCIN HCL 82544495276 No Longer Active Neeraj Collins MD Active KEFLEX 500 MG ORAL CAPS 1 cap QID by mouth CEPHALEXIN 97466293950 No Longer Active Neeraj Collins MD Active DIFLUCAN 150 MG TABS 1 pill every other day x 2 doses FLUCONAZOLE 93728100596 No Longer Active Sahara Rodriguez MD PhD Active MELATONIN 3 MG CAPS 2 po q hs MELATONIN 10894180497 No Longer Active Sahara Rodriguez MD PhD Active MULTIVITAMINS CAPS Take one by mouth daily MULTIPLE VITAMIN 30857349024 No Longer Active Sahara Rodriguez MD PhD Active BACTRIM DS 800-160 MG TAB 1 tab by mouth twice daily TRIMETHOPRIM-SULFAMETHOXAZOLE 69510963776 No Longer Active Sahara Rodriguez MD PhD Active [facility] PROBIOTIC ORAL CHEW 2 daily po PROBIOTIC PRODUCT 86976173724 No Longer Active Sahara Rodriguez MD PhD Active IBUPROFEN 600 MG TAB 1 po TID PRN IBUPROFEN 76890953041 Active Luigi Swensonlebron JOWL TRIMMER Active BACTRIM DS 800-160 MG TABS 1 po BID x 7 days SULFAMETHOXAZOLE-TRIMETHOPRIM 44082616665 No Longer Active Vishal Hui MD Active CHANTIX STARTING MONTH EARNEST 0.5 MG X 11 & 1 MG X 42 TABS 0.5mg daily for 3 days , then 0.5mg BID for 4 days, then 1mg BID VARENICLINE TARTRATE 73642144815 No Longer Active TAMARA Gray Active METOPROLOL TARTRATE 50 MG TAB 1 po bid METOPROLOL TARTRATE 44923101437 Active Vishal Hui MD Active TRAZODONE HCL 100 MG TAB take 1 at bedtime TRAZODONE HCL 12454125242 Active Vishal Hui MD Active AMLODIPINE BESYLATE 5 MG TABS 1 tablet by mouth daily AMLODIPINE BESYLATE 41320862881 Active Vishal Hui MD Active VERAPAMIL HCL CR 120 MG TAB CR 1 po bid VERAPAMIL HCL 34892549571 No Longer Active Vishal Hui MD Active METOPROLOL SUCCINATE 50 MG TB24 1 tablet by mouth daily METOPROLOL SUCCINATE 24058677455 No Longer Active Vishal Hui MD Active TRAMADOL HCL 50 MG TABS 1-2 po TID PRN Pain TRAMADOL HCL 27275363269 Active Ahmet Carbajal MD Active SAPHRIS 5 MG SUBL 1 po bid ASENAPINE MALEATE 93218273908 Active Vishal Hui MD Active SAPHRIS 10 MG SUBL 1 tab po bid ASENAPINE MALEATE 25698988820 No Longer Active Vishal Hui MD Active LISINOPRIL 20 MG TABS 1 tab po qd LISINOPRIL 89585058417 No Longer Active Vishal Hui MD Active BENADRYL 25 MG CAP 2 po tid prn anxiety DIPHENHYDRAMINE HCL 62139557622 Active Vishal Hui MD Active LATUDA 80 MG TABS Take one by mouth daily LURASIDONE HCL 04881960382 Active Vishal Hui MD Active LATUDA 20 MG TABS Take one by mouth daily LURASIDONE HCL 78821083644 No Longer Active Vishal Hui MD Active TRAZODONE HCL 50 MG TABS 1/2 tab po qd prn for anxiety TRAZODONE HCL 93268122934 No Longer Active Vishal Hui MD Active PIROXICAM 20 MG CAPS 1 cap po qd PRN Pain PIROXICAM 85408119375 Active Vishal Hui MD Active OMEPRAZOLE 20 MG TBEC 1 po q a.m. 30min prior to first food intake OMEPRAZOLE 79761714309 Active Vishal Hui MD Active RANITIDINE HCL 150 MG CAPS 1 twice a day RANITIDINE HCL 74133797818 Active Vishal Hui MD Active PROZAC 20 MG CAP Take one by mouth daily FLUOXETINE HCL 97797754277 Active Vishal Hui MD Active LINZESS 290 MCG CAPS Take one by mouth daily LINACLOTIDE 22345268682 Active Vishal Hui MD Active SAPHRIS 5 MG SUBL 1 tab po qd ASENAPINE MALEATE 59908380276 No Longer Active Vishal Hui MD Active ZALEPLON 10 MG CAPS 1 cap po every other night ZALEPLON 23926279480 No Longer Active Vishal Hui MD Active LYRICA 50 MG CAPS 1 tab po TID PREGABALIN 80582410869 No Longer Active Vishal Hui MD Active LORATADINE 10 MG TABS 1 tab po qd LORATADINE 86851284707 No Longer Active Vishal Hui MD Active VERAPAMIL HCL ER 180 MG CR-TABS 1 tab po bid VERAPAMIL HCL 69027765510 No Longer Active Vishal Hui MD Active MIRALAX POWD 1 capfull once daily POLYETHYLENE GLYCOL 3350 68523676199 No Longer Active Vishal Hui MD Active PREDNISONE 20 MG TABS 1 tab po qd PREDNISONE 57591050546 No Longer Active Renzo Thornton DO Active LEVOFLOXACIN 500 MG TABS 1 tab po qd LEVOFLOXACIN 20894992069 No Longer Active Renzo Thornton DO Active BUSPIRONE HCL 15 MG TABS 1 tab po TID BUSPIRONE HCL 08292477231 No Longer Active Renzo Thornton DO Active BENZTROPINE MESYLATE 1 MG TABS 1 tab po qd BENZTROPINE MESYLATE 30555865545 No Longer Active Renzo Thornton DO Active ATENOLOL 25 MG TABS 1 tab po qd ATENOLOL 26079226098 No Longer Active Renzo Thornton DO Active ESCITALOPRAM OXALATE 20 MG TABS 1 tab po qd ESCITALOPRAM OXALATE 87825492225 No Longer Active Renzo Thornton DO Active ADVAIR DISKUS 250-50 MCG/DOSE AEPB 1 puff BID FLUTICASONE-SALMETEROL 64454930184 No Longer Active Renzo Thornton DO Active PREDNISONE 20 MG TAB 2 tabs daily for 3 days, 1 tab daily for 3 days, 1/2 tab daily for 2 days PREDNISONE 07752023148 No Longer Active Vishal Hui MD Active CEFDINIR 300 MG CAPS by mouth twice a day CEFDINIR 20114654539 No Longer Active Vishal Hui MD Active LANSOPRAZOLE 30 MG CPDR 1 cap po qd LANSOPRAZOLE 08728757285 No Longer Active Vishal Hui MD Active TOPAMAX 25 MG TABS 1 tab po bid TOPIRAMATE 57856412239 Active Vishal Hui MD Active MINIPRESS 2 MG CAPS 1 cap po at night PRAZOSIN HCL 24418567181 Active Vishal Hui MD Active BACLOFEN 20 MG TABS 1 tab po tid BACLOFEN 79526085457 No Longer Active Vishal Hui MD Active ADVAIR DISKUS 250-50 MCG/DOSE AEPB 1 puff BID ADVAIR DISKUS 250-50 MCG/DOSE AEPB FLUTICASONE-SALMETEROL Inactive ESCITALOPRAM OXALATE 20 MG TABS 1 tab po qd ESCITALOPRAM OXALATE 20 MG TABS 403454 ESCITALOPRAM OXALATE Inactive ATENOLOL 25 MG TABS 1 tab po qd ATENOLOL 25 MG TABS 981623 ATENOLOL Inactive BENZTROPINE MESYLATE 1 MG TABS 1 tab po qd BENZTROPINE MESYLATE 1 MG TABS 622017 BENZTROPINE MESYLATE Inactive BUSPIRONE HCL 15 MG TABS 1 tab po TID BUSPIRONE HCL 15 MG TABS 425609 BUSPIRONE HCL Inactive LEVOFLOXACIN 500 MG TABS 1 tab po qd LEVOFLOXACIN 500 MG TABS 408176 LEVOFLOXACIN Inactive PREDNISONE 20 MG TABS 1 tab po qd PREDNISONE 20 MG TABS 720075 PREDNISONE Inactive MIRALAX POWD 1 capfull once daily MIRALAX POWD 285399 POLYETHYLENE GLYCOL 3350 Inactive VERAPAMIL HCL ER 180 MG CR-TABS 1 tab po bid VERAPAMIL HCL ER 180 MG CR-TABS VERAPAMIL HCL Inactive LORATADINE 10 MG TABS 1 tab po qd LORATADINE 10 MG TABS 206289 LORATADINE Inactive LYRICA 50 MG CAPS 1 tab po TID LYRICA 50 MG CAPS PREGABALIN Inactive ZALEPLON 10 MG CAPS 1 cap po every other night ZALEPLON 10 MG CAPS 156633 ZALEPLON Inactive SAPHRIS 5 MG SUBL 1 tab po qd SAPHRIS 5 MG SUBL ASENAPINE MALEATE Inactive TRAZODONE HCL 50 MG TABS 1/2 tab po qd prn for anxiety TRAZODONE HCL 50 MG TABS 550622 TRAZODONE HCL Inactive LATUDA 20 MG TABS Take one by mouth daily LATUDA 20 MG TABS LURASIDONE HCL Inactive LISINOPRIL 20 MG TABS 1 tab po qd LISINOPRIL 20 MG TABS 374823 LISINOPRIL Inactive SAPHRIS 10 MG SUBL 1 [...] po q hs MELATONIN 3 MG CAPS 944843 MELATONIN Inactive KEFLEX 500 MG ORAL CAPS 1 cap QID by mouth KEFLEX 500 MG ORAL CAPS 678994 CEPHALEXIN Inactive CLINDAMYCIN HCL 150 MG CAPS 1 four times a day CLINDAMYCIN HCL 150 MG CAPS 659447 CLINDAMYCIN HCL Inactive CEFDINIR 300 MG CAPS by mouth twice a day CEFDINIR 300 MG CAPS 626161 CEFDINIR Inactive PREDNISONE 20 MG TAB 2 tabs daily for 3 days, 1 tab daily for 3 days, 1/2 tab daily for 2 days PREDNISONE 20 MG TAB 437036 PREDNISONE Inactive BACTRIM DS 800-160 MG TABS 1 po BID x 7 days BACTRIM DS 800-160 MG TABS SULFAMETHOXAZOLE-TRIMETHOPRIM Inactive DIFLUCAN 150 MG TABS 1 pill every other day x 2 doses DIFLUCAN 150 MG TABS 485070 FLUCONAZOLE Inactive Vital Signs Date Name Value [...] ... - Chemistry sodium, serum 140 mmol/L 676-028 2425/05/28 potassium, serum 4.2 mmol/L 3.5-5.2 chloride, serum [...] Panel - Chemistry sodium, serum 141 mmol/L [phone] potassium, serum 4.3 mmol/L 3.5-5.2 chloride, serum [...] Comp. Metabolic Panel, Lipid Panel - Chemistry potassium, serum 4.8 mmol/L 3.5-5.2 chloride, serum 106 mmol/L 98-107 carbon dioxide, venous blood 24.3 mmol/L 21.0-32.0 blood glucose 90 mg/dL 65-110 urea nitrogen, blood 16 mg/dL 7-18 sodium, serum 139 mmol/L 199-788 1726/12/31 creatinine, serum 1.00 mg/dL 0.60-1.30 alanine aminotransferase (SGPT), serum 41 U/L -78 aspartate aminotransferase (SGOT), serum 17 U/L 15-37 calcium, serum 8.6 mg/dL 8.5-10.1 bilirubin, serum, total 0.30 mg/dL 0.00-1.00 cholesterol, serum 108 mg/dL 453-830 5939/12/31 triglyceride, serum, fasting 120 mg/dL 30-200 HDL [...] Report: UADIP W/MICRO, AUTO, UHCG - Chemistry human chorionic gonadotropin, urine, qualitative (urine test) Negative Negative protein, total urine random Negative mg/dL Negative RBC, urine, dipstick Negative Negative Lab Report: UADIP W/MICRO, AUTO, [facility] [place] - Urinalysis urobilinogen, urine, semiquantitative (dipstick) 0.2 Normal leukocyte esterase, urine, by dipstick Negative Negative nitrite, urine, semiquantitative Negative Negative glucose, urine, semiquantitative Negative Negative specific gravity, urine 1.025 1.000-1.030 pH, urine, semiquantitative 7.0 5.0-8.5 urine color Yellow Colorless;Lightyellow;Straw;Yellow ketones, urine, by test strip Negative Negative bilirubin, urine Negative Negative appearance, urine Clear Clear Lab Report: Varicella-Zoater Inga IgG,IgM/05982, HEP Be Antibody/556, RUB ... - Serology rubella antibody, serum, IgG 2.88 Encounters Code Encounter Date Provider Facility CPT-72906 Level 3 Est. Patient 12:00:41 CDT Neeraj Collins MD [facility] CPT-78212 Level 3 Est. Patient 09:16:24 CDT Vishal Hui MD [facility] CPT-54655 Level 4 Est. Patient 13:59:09 CDT Neeraj Collins MD [facility] CPT-55161 Level 3 Est. Patient 15:19:43 CDT Renzo Thornton DO [facility] CPT-46070 Level 3 Est. Patient 18:10:26 CDT Sahara Rodriguez MD [facility] CPT-45377 Level 3 Est. Patient 14:49:50 CDT Vishal Hui MD [facility] CPT-36935 Level 4 Est. Patient 18:41:46 CDT Neeraj Collins MD [facility] CPT-36403 Level 4 Est. Patient 09:18:38 EXPERIMENTAL MACHINIST Vishal Hui MD [facility] CPT-27415 Level 3 Est. Patient 14:43:55 EXPERIMENTAL MACHINIST Vishal Hui MD [facility] CPT-51465 Level 3 Est. Patient 15:26:33 EXPERIMENTAL MACHINIST Sahara Rodriguez MD PhD [facility] CPT-98593 Level 3 Est. Patient 10:32:14 EXPERIMENTAL MACHINIST Vishal Hui MD [facility] CPT-62911 Level 3 Est. Patient 15:12:52 EXPERIMENTAL MACHINIST Vishal Hui MD [facility] CPT-31826 Level 4 Est. Patient 09:19:27 CDT Vishal Hui MD [facility] CPT-61196 Level 3 Est. Patient 15:53:[address] [facility] CPT-06397 Level 3 Est. Patient 15:50:[address] [facility] CPT-33040 Level 3 Est. Patient 16:55:24 CDT Vishal Hui MD [facility] Procedures Code Procedure Name Date Entry Date Standard Description CPT-J3420 Vitamin B12 1000mcg (Cyanocobalamin) 08:34:04 CDT 10/09 CPT-10925 Abx/Therapy Injection 08:34:04 CDT CPT-J3420 Vitamin B12 1000mcg (Cyanocobalamin) 09:18:52 CDT 09/11 CPT-11512 Abx/Therapy Injection 09:18:52 CDT CPT-J3420 Vitamin B12 1000mcg (Cyanocobalamin) 08:35:44 CDT 09/04 CPT-30202 Abx/Therapy Injection 08:35:44 CDT CPT-35519 Immunization Single Admin 11:07:16 CDT CPT-30589 Hepatitis B adult IM 11:07:16 CDT CPT-J3420 Vitamin B12 1000mcg (Cyanocobalamin) 11:00:49 CDT 08/28 CPT-J1040 Depo Medrol 80 mg (Methyl Prednisolone Acetate) 11:00: 49 CDT CPT-17586 Abx/Therapy Injection 11:00:49 CDT CPT-J1040 Depo Medrol 80 mg (Methyl Prednisolone Acetate) 09:16: 23 CDT CPT-J3420 Vitamin B12 1000mcg (Cyanocobalamin) 08:27:05 CDT 08/20 CPT-19730 Abx/Therapy Injection 08:27:05 CDT CPT-24676 Recombivax HB Injection Suspension 5 MCG/0.5ML 10:00:41 CDT CPT-32460 Administration single or combination vaccine inc oral 10 :00:41 CDT CPT-29956 Sono transvag pelvis non OB uterus ovaries cervix 16:36: 57 CDT CPT-25758 LS spine comp w obliq 09:50:55 EXPERIMENTAL MACHINIST CPT-91376 Abd compl w upright 09:50:55 EXPERIMENTAL MACHINIST CPT-J1100 Decadron 4mg (Dexamethasone) 15:51:24 EXPERIMENTAL MACHINIST CPT-J1030 Depo Medrol 40 mg (Methyl Prednisolone Acetate) 15:51: 24 EXPERIMENTAL MACHINIST CPT-77926 Abx/Therapy Injection 15:51:24 EXPERIMENTAL MACHINIST CPT-J1100 Decadron 4mg (Dexamethasone) 15:26:33 EXPERIMENTAL MACHINIST CPT-J1030 Depo Medrol 40 mg (Methyl Prednisolone Acetate) 15:26: 33 EXPERIMENTAL MACHINIST CPT-72399 Sono retroperitoneal complete kidneys and bladder 17:15: 30 CDT CPT-47902 Abd compl w upright 16:09:25 CDT CPT-J1100 Decadron 8mg (Dexamethasone) 17:07:57 CDT CPT-91754 Abx/Therapy Injection 17:07:57 CDT CPT-J1100 Decadron 8mg (Dexamethasone) 16:55:24 CDT CPT-62229 Chest 2V Frontal and Lat 16:32:44 CDT
--- OUTSIDE RECORDS SUMMARY | 2016-11-04 15:13 | XMS REPORT | Clinical Summary ---
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 Active Juliet Kimbrough PRESSROOM SUPERVISOR Dependence on other enabling machines and devices [...] IM SUSR Injection once per month ARIPIPRAZOLE 38838934560 Active Juliet Kimbrough APRN Active PREDNISONE 20 MG TAB 2 tabs daily for 4 days, 1 tab daily for 4 days, 1/2 tab daily for 4 days PREDNISONE 77123425090 Active Vishal Hui MD Active IMITREX 50 MG ORAL TABS 1/2 tab every 6 hours prn SUMATRIPTAN SUCCINATE 18560663240 Active Tataina Mauricio NORIEGA Active AMBIEN 5 MG ORAL TABS 1 tab at bedtime ZOLPIDEM TARTRATE 47257678273 Active Luigi Martínez APRN Active PROZAC 20 MG ORAL CAPS 1 tab daily FLUOXETINE HCL 98477169129 Active Luigi Martínez APRN Active ABILIFY 15 MG ORAL TABS 1 tab daily ARIPIPRAZOLE 30570741142 Active Luigi Martínez APRN Active MINIPRESS 2 MG CAPS 4 cap po at night PRAZOSIN HCL 36761652648 Active Luigi Martínez APRN Active TOPAMAX 50 MG ORAL TABS 1 tab twice daily TOPIRAMATE 97835129155 Active Vishal Hui MD Active SAPHRIS 5 MG SUBL 1 po bid ASENAPINE MALEATE 37667146365 No Longer Active Pacollina Frazell PRESSROOM SUPERVISOR Active LATUDA 80 MG TABS Take one by mouth daily LURASIDONE HCL 09871340610 No Longer Active Luigi Martínez PRESSROOM SUPERVISOR Active AMLODIPINE BESYLATE 5 MG TABS 1 tablet by mouth daily AMLODIPINE BESYLATE 69878961789 No Longer Active Luigi Martínez PRESSROOM SUPERVISOR Active AMITRIPTYLINE HCL 100 MG TAB one at hs AMITRIPTYLINE HCL 23384225782 No Longer Active Vishal Hui MD Active TRAZODONE HCL 100 MG TAB take 1 at bedtime TRAZODONE HCL 18123472350 No Longer Active Vishal Hui MD Active VYVANSE 40 MG CAPS 1 daily, LISDEXAMFETAMINE DIMESYLATE 27297560674 No Longer Active Vishal Hui MD Active IBUPROFEN 600 MG TAB 1 po TID PRN IBUPROFEN 74687559529 No Longer Active Vishal Hui MD Active MIRALAX PACK 1 po qd PRN Constipation POLYETHYLENE GLYCOL 3350 09717598121 Active Vishal Hui MD Active PROZAC 20 MG CAP Take one by mouth daily FLUOXETINE HCL 31654509250 No Longer Active Vishal Hui MD Active ZOFRAN 4 MG TABS 1 po q6hr PRN Nausea ONDANSETRON HCL Active Vishal Hui MD Active BACTRIM DS 800-160 MG TABS 1 pill by mouth twice daily SULFAMETHOXAZOLE-TRIMETHOPRIM 98905280613 No Longer Active Sahara Rodriguez MD PhD Active DIFLUCAN 150 MG TAB 1 tablet by mouth daily FLUCONAZOLE 72227182796 No Longer Active Vishal Hui MD Active TIZANIDINE HCL 4 MG TABS 1 po q6hr PRN Muscle Spasm/Back Pain TIZANIDINE HCL 26112104032 Active Luigi Martínez APRN Active CLINDAMYCIN HCL 150 MG CAPS 1 four times a day CLINDAMYCIN HCL 00944806496 No Longer Active Neeraj Collins MD Active KEFLEX 500 MG ORAL CAPS 1 cap QID by mouth CEPHALEXIN 70983416513 No Longer Active Neeraj Collins MD Active DIFLUCAN 150 MG TABS 1 pill every other day x 2 doses FLUCONAZOLE 94552356475 No Longer Active Sahara Rodriguez MD PhD Active MELATONIN 3 MG CAPS 2 po q hs MELATONIN 11794808985 No Longer Active Sahara Rodriguez MD PhD Active MULTIVITAMINS CAPS Take one by mouth daily MULTIPLE VITAMIN 37273375382 No Longer Active Sahara Rodriguez MD PhD Active BACTRIM DS 800-160 MG TAB 1 tab by mouth twice daily TRIMETHOPRIM-SULFAMETHOXAZOLE 02911012680 No Longer Active Sahara Rodriguez MD PhD Active [facility] PROBIOTIC ORAL CHEW 2 daily po PROBIOTIC PRODUCT 19311488328 No Longer Active Sahara Rodriguez MD PhD Active BACTRIM DS 800-160 MG TABS 1 po BID x 7 days SULFAMETHOXAZOLE-TRIMETHOPRIM 13395686392 No Longer Active Vishal Hui MD Active CHANTIX STARTING MONTH EARNEST 0.5 MG X 11 & 1 MG X 42 TABS 0.5mg daily for 3 days , then 0.5mg BID for 4 days, then 1mg BID VARENICLINE TARTRATE 20878228946 No Longer Active TAMARA Gray Active METOPROLOL TARTRATE 50 MG TAB 1 po bid METOPROLOL TARTRATE 22264281339 Active Vishal Hui MD Active VERAPAMIL HCL CR 120 MG TAB CR 1 po bid VERAPAMIL HCL 24762490578 No Longer Active Vishal Hui MD Active METOPROLOL SUCCINATE 50 MG TB24 1 tablet by mouth daily METOPROLOL SUCCINATE 92828681001 No Longer Active Vishal Hui MD Active TRAMADOL HCL 50 MG TABS 1-2 po TID PRN Pain TRAMADOL HCL 48758690824 Active Luigi Martínez PRESSROOM SUPERVISOR Active SAPHRIS 10 MG SUBL 1 tab po bid ASENAPINE MALEATE 84604710500 No Longer Active Vishal Hui MD Active LISINOPRIL 20 MG TABS 1 tab po qd LISINOPRIL 85157329944 No Longer Active Vishal Hui MD Active BENADRYL 25 MG CAP 2 po tid prn anxiety DIPHENHYDRAMINE HCL 16091384775 Active Vishal Hui MD Active LATUDA 20 MG TABS Take one by mouth daily LURASIDONE HCL 44285043990 No Longer Active Vishal Hui MD Active TRAZODONE HCL 50 MG TABS 1/2 tab po qd prn for anxiety TRAZODONE HCL 67136668042 No Longer Active Vishal Hui MD Active PIROXICAM 20 MG CAPS 1 cap po qd PRN Pain PIROXICAM 65804900059 Active Vishal Hui MD Active OMEPRAZOLE 20 MG TBEC 1 po q a.m. 30min prior to first food intake OMEPRAZOLE 98960013539 Active Vishal Hui MD Active RANITIDINE HCL 150 MG CAPS 1 twice a day RANITIDINE HCL 08672577844 Active Vishal Hui MD Active LINZESS 290 MCG CAPS Take one by mouth daily LINACLOTIDE 57888693292 No Longer Active Vishal Hui MD Active SAPHRIS 5 MG SUBL 1 tab po qd ASENAPINE MALEATE 78343621859 No Longer Active Vishal Hui MD Active ZALEPLON 10 MG CAPS 1 cap po every other night ZALEPLON 26113843949 No Longer Active Vishal Hui MD Active LYRICA 50 MG CAPS 1 tab po TID PREGABALIN 75745934286 No Longer Active Vishal Hui MD Active LORATADINE 10 MG TABS 1 tab po qd LORATADINE 66962907665 No Longer Active Vishal Hui MD Active VERAPAMIL HCL ER 180 MG CR-TABS 1 tab po bid VERAPAMIL HCL 49890485698 No Longer Active Vishal Hui MD Active MIRALAX POWD 1 capfull once daily POLYETHYLENE GLYCOL 3350 95949842107 No Longer Active Vishal Hui MD Active PREDNISONE 20 MG TABS 1 tab po qd PREDNISONE 73164762503 No Longer Active Renzo Thornton DO Active LEVOFLOXACIN 500 MG TABS 1 tab po qd LEVOFLOXACIN 46860600959 No Longer Active Renzo Thornton DO Active BUSPIRONE HCL 15 MG TABS 1 tab po TID BUSPIRONE HCL 42344685490 No Longer Active Renzo Thornton DO Active BENZTROPINE MESYLATE 1 MG TABS 1 tab po qd BENZTROPINE MESYLATE 98215277264 No Longer Active Renzo Thornton DO Active ATENOLOL 25 MG TABS 1 tab po qd ATENOLOL 54547068195 No Longer Active Renzo Thornton DO Active ESCITALOPRAM OXALATE 20 MG TABS 1 tab po qd ESCITALOPRAM OXALATE 34124210936 No Longer Active Renzo Thornton DO Active ADVAIR DISKUS 250-50 MCG/DOSE AEPB 1 puff BID FLUTICASONE-SALMETEROL 25290667917 No Longer Active Renzo Thornton DO Active PREDNISONE 20 MG TAB 2 tabs daily for 3 days, 1 tab daily for 3 days, 1/2 tab daily for 2 days PREDNISONE 48389004232 No Longer Active Vishal Hui MD Active CEFDINIR 300 MG CAPS by mouth twice a day CEFDINIR 46756803137 No Longer Active Vishal Hui MD Active LANSOPRAZOLE 30 MG CPDR 1 cap po qd LANSOPRAZOLE 13313916475 No Longer Active Vishal Hui MD Active BACLOFEN 20 MG TABS 1 tab po tid BACLOFEN 62380346185 No Longer Active Vishal Hui MD Active ADVAIR DISKUS 250-50 MCG/DOSE AEPB 1 puff BID ADVAIR DISKUS 250-50 MCG/DOSE AEPB FLUTICASONE-SALMETEROL Inactive ESCITALOPRAM OXALATE 20 MG TABS 1 tab po qd ESCITALOPRAM OXALATE 20 MG TABS 334699 ESCITALOPRAM OXALATE Inactive ATENOLOL 25 MG TABS 1 tab po qd ATENOLOL 25 MG TABS 620661 ATENOLOL Inactive BENZTROPINE MESYLATE 1 MG TABS 1 tab po qd BENZTROPINE MESYLATE 1 MG TABS 572830 BENZTROPINE MESYLATE Inactive BUSPIRONE HCL 15 MG TABS 1 tab po TID BUSPIRONE HCL 15 MG TABS 425520 BUSPIRONE HCL Inactive LEVOFLOXACIN 500 MG TABS 1 tab po qd LEVOFLOXACIN 500 MG TABS 604002 LEVOFLOXACIN Inactive PREDNISONE 20 MG TABS 1 tab po qd PREDNISONE 20 MG TABS 394578 PREDNISONE Inactive MIRALAX POWD 1 capfull once daily MIRALAX POWD 931912 POLYETHYLENE GLYCOL 3350 Inactive VERAPAMIL HCL ER 180 MG CR-TABS 1 tab po bid VERAPAMIL HCL ER 180 MG CR-TABS VERAPAMIL HCL Inactive LORATADINE 10 MG TABS 1 tab po qd LORATADINE 10 MG TABS 616367 LORATADINE Inactive LYRICA 50 MG CAPS 1 tab po TID LYRICA 50 MG CAPS PREGABALIN Inactive ZALEPLON 10 MG CAPS 1 cap po every other night ZALEPLON 10 MG CAPS 549517 ZALEPLON Inactive SAPHRIS 5 MG SUBL 1 tab po qd SAPHRIS 5 MG SUBL ASENAPINE MALEATE Inactive TRAZODONE HCL 50 MG TABS 1/2 tab po qd prn for anxiety TRAZODONE HCL 50 MG TABS 888213 TRAZODONE HCL Inactive LATUDA 20 MG TABS Take one by mouth daily LATUDA 20 MG TABS LURASIDONE HCL Inactive LISINOPRIL 20 MG TABS 1 tab po qd LISINOPRIL 20 MG TABS 312026 LISINOPRIL Inactive SAPHRIS 10 MG SUBL 1 [...] twice daily BACTRIM DS 800-160 MG TAB 836250 TRIMETHOPRIM-SULFAMETHOXAZOLE Inactive MULTIVITAMINS CAPS Take one by mouth daily MULTIVITAMINS CAPS MULTIPLE VITAMIN Inactive MELATONIN 3 MG CAPS 2 po q hs MELATONIN 3 MG CAPS 327108 MELATONIN Inactive KEFLEX 500 MG ORAL CAPS 1 cap QID by mouth KEFLEX 500 MG ORAL CAPS 232205 CEPHALEXIN Inactive CLINDAMYCIN HCL 150 MG CAPS 1 four times a day CLINDAMYCIN HCL 150 MG CAPS 073384 CLINDAMYCIN HCL Inactive DIFLUCAN 150 MG TAB 1 tablet by mouth daily DIFLUCAN 150 MG TAB 189981 FLUCONAZOLE Inactive PROZAC 20 MG CAP Take one by mouth daily PROZAC 20 MG CAP 429975 FLUOXETINE HCL Inactive IBUPROFEN 600 MG TAB 1 po TID PRN IBUPROFEN 600 MG TAB 794595 IBUPROFEN Inactive VYVANSE 40 MG CAPS 1 daily, VYVANSE 40 MG CAPS LISDEXAMFETAMINE DIMESYLATE Inactive TRAZODONE HCL 100 MG TAB take 1 at bedtime TRAZODONE HCL 100 MG TAB 994228 TRAZODONE HCL Inactive AMITRIPTYLINE HCL 100 MG TAB one at hs AMITRIPTYLINE HCL 100 MG TAB 584381 AMITRIPTYLINE HCL Inactive AMLODIPINE BESYLATE 5 MG TABS 1 tablet by mouth daily AMLODIPINE BESYLATE 5 MG TABS 100956 AMLODIPINE BESYLATE Inactive LATUDA 80 MG TABS Take one by mouth daily LATUDA 80 MG TABS LURASIDONE HCL Inactive SAPHRIS 5 MG SUBL 1 po bid SAPHRIS 5 MG SUBL ASENAPINE MALEATE Inactive CEFDINIR 300 MG CAPS by mouth twice a day CEFDINIR 300 MG CAPS 767713 CEFDINIR Inactive PREDNISONE 20 MG TAB 2 tabs daily for 3 days, 1 tab daily for 3 days, 1/2 tab daily for 2 days PREDNISONE 20 MG TAB 796014 PREDNISONE Inactive BACTRIM DS 800-160 MG TABS 1 po BID x 7 days BACTRIM DS 800-160 MG TABS 19820521 SULFAMETHOXAZOLE-TRIMETHOPRIM Inactive DIFLUCAN 150 MG TABS 1 pill every other day x 2 doses DIFLUCAN 150 MG TABS 766833 FLUCONAZOLE Inactive BACTRIM DS 800-160 MG TABS [...] % 11.6-14.8 platelet count 394 10^3/MM^3 10*3/mm3 955-234 0550/01/11 leukocyte count, blood 13.8 10^3/MM^3 10*3/mm3 4.6-10.2 [...] Panel - Chemistry sodium, serum 139 mmol/L 007-957 5990/12/03 carbon dioxide, venous blood 28.5 mmol/L 21.0-32.0 [...] 5.5 % 4.3-6.0 cholesterol, serum 159 mg/dL 689-401 3926/12/03 triglyceride, serum, fasting 118 mg/dL 30-200 HDL [...] ... - Chemistry sodium, serum 140 mmol/L 038-312 0704/05/28 potassium, serum 4.2 mmol/L 3.5-5.2 chloride, serum [...] Panel - Chemistry sodium, serum 141 mmol/L 086-513 8321 potassium, serum 4.3 mmol/L 3.5-5.2 chloride, serum 106 mmol/L 98-107 carbon dioxide, venous blood 25.7 mmol/L 21.0-32.0 blood glucose 119 mg/dL 65-110 urea nitrogen, blood 22 mg/dL 7-18 creatinine, serum 0.90 mg/dL 0.60-1.30 alanine aminotransferase (SGPT), serum 28 U/L 12-78 aspartate aminotransferase (SGOT), serum 13 U/L 15-37 calcium, serum 8.5 mg/dL 8.5-10.1 bilirubin, serum, total 0.20 mg/dL 0.00-1.00 sodium, serum 139 mmol/L 934-233 6506/12/22 carbon dioxide, venous blood 26.8 mmol/L 21.0-32.0 potassium, serum 4.2 mmol/L 3.5-5.2 chloride, serum 103 mmol/L 98-107 blood glucose 115 mg/dL 65-110 urea nitrogen, blood 20 mg/dL 7-18 creatinine, serum 0.90 mg/dL 0.55-1.30 alanine aminotransferase (SGPT), serum 38 U/L -78 aspartate aminotransferase (SGOT), serum 19 U/L 15-37 calcium, serum 8.6 mg/dL 8.5-10.1 bilirubin, serum, total 0.30 mg/dL 0.00-1.00 sodium, serum 139 mmol/L 589-585 5103/01/11 carbon dioxide, venous blood 26.6 mmol/L 21.0-32.0 [...] Rate - Chemistry sodium, serum 139 mmol/L 932-443 7890/12/11 carbon dioxide, venous blood 25.4 mmol/L 21.0-32.0 [...] 5.5 5.0-8.5 Lab Report: UADIP W/MICRO, [place]O, [facility] [place] Chemistry protein, total urine random Negative mg/dL Negative RBC, urine, dipstick Negative Negative human chorionic gonadotropin, urine, qualitative (urine test) Negative Negative Lab Report: [facility], [facility] - Urinalysis urobilinogen, urine, semiquantitative (dipstick) 0.2 Normal leukocyte esterase, urine, by dipstick Negative Negative nitrite, urine, semiquantitative Negative Negative glucose, urine, semiquantitative Negative Negative ketones, urine, by test strip Negative Negative bilirubin, urine Negative Negative urine color Yellow Colorless;Lightyellow;Straw;Yellow appearance, urine Clear Clear specific gravity, urine 1.025 1.000-1.030 pH, urine, semiquantitative 7.0 5.0-8.5 Lab Report: Varicella-Zoater Inga IgG,IgM/79430, HEP Be Antibody/556, RUB ... - Serology rubella antibody, serum, IgG 2.88 Encounters Code Encounter Date Provider Facility [facility]-60763 Level 4 Est. Patient 09:00:51 JOIST SETTER Vishal Hui MD [facility]-24913 Level 3 Est. Patient 11:37:33 JOIST SETTER Vishal Hui MD [facility]-20666 Level 3 Est. Patient 08:41:09 JOIST SETTER Vishal Hui MD [facility]-17267 Level 4 Est. Patient 10:19:35 JOIST SETTER Vishal Hui MD [facility]-02097 Level 3 Est. Patient 13:35:45 CDT Vishal Hui MD [facility]-94114 Level 4 Est. Patient 10:08:37 CDT Vishal Hui MD [facility]-42653 Level 3 Est. Patient 11:22:10 CDT Vishal Hui MD [facility]-35025 Level 3 Est. Patient 11:03:32 CDT Sahara Rodriguez MD [facility]07392 Level 3 Est. Patient 09:41:35 CDT Vishal Hui MD [facility]67442 Level 3 Est. Patient 12:00:41 CDT Neeraj Collins MD [facility]-01443 Level 3 Est. Patient 09:16:24 CDT Vishal Hui MD [facility]-66110 Level 4 Est. Patient 13:59:09 CDT Neeraj Collins MD [facility]-87394 Level 3 Est. Patient 15:19:43 CDT Renzo Thornton DO [facility]-44103 Level 3 Est. Patient 18:10:26 CDT Sahara Rodriguez MD PhD [facility] CPT-69678 Level 3 Est. Patient 14:49:50 CDT Vishal Hui MD [facility] CPT-19537 Level 4 Est. Patient 18:41:46 CDT Neeraj Collins MD [facility] CPT-29010 Level 4 Est. Patient 09:18:38 JOIST SETTER Vishal Hui MD [facility] CPT-02377 Level 3 Est. Patient 14:43:55 JOIST SETTER Vishal Hui MD [facility] CPT-93972 Level 3 Est. Patient 15:26:33 JOIST SETTER Sahara Rodriguez MD PhD [facility] CPT-37049 Level 3 Est. Patient 10:32:14 JOIST SETTER Vishal Hui MD [facility] CPT-69078 Level 3 Est. Patient 15:12:52 JOIST SETTER Vishal Hui MD [facility] CPT-06970 Level 4 Est. Patient 09:19:27 CDT Vishal Hui MD [facility] CPT-55636 Level 3 Est. Patient 15:53:00 CDT Renzo Thornton [facility] CPT-61919 Level 3 Est. Patient 15:50:30 CDT Renzo Thornton [facility] CPT-37231 Level 3 Est. Patient 16:55:24 CDT Vishal uHi MD [facility] Procedures Code Procedure Name Date Entry Date Standard Description CPT-J3420 Vitamin B12 1000mcg (Cyanocobalamin) 08:10:26 JOIST SETTER 04/12 CPT-83969 Abx/Therapy Injection 08:10:26 JOIST SETTER CPT-G0438 Initial Annual Wellness Exam 19:01:01 JOIST SETTER CPT-J3420 Vitamin B12 1000mcg (Cyanocobalamin) 16:57:46 CDT 08/14 CPT-81076 Recombivax HB Injection Suspension 5 MCG/0.5ML 08:37:50 JOIST SETTER CPT-07484 Immunization Single Admin 08:37:50 JOIST SETTER CPT-J3420 Vitamin B12 1000mcg (Cyanocobalamin) 08:32:16 JOIST SETTER 03/11 CPT-36580 Abx/Therapy Injection 08:32:16 JOIST SETTER CPT-49315 Chest 2V Frontal and Lat 11:46:38 JOIST SETTER CPT-79709 Venipuncture Draw Fee 09:12:45 JOIST SETTER CPT-J3420 Vitamin B12 1000mcg (Cyanocobalamin) 08:50:15 JOIST SETTER 02/08 CPT-54853 Abx/Therapy Injection 08:50:15 JOIST SETTER CPT-Cryo Cryotherapy 10:19:35 JOIST SETTER CPT-000 Give Appropriate Flu Vaccine 09:22:16 CDT CPT-J3420 Vitamin B12 1000mcg (Cyanocobalamin) 19:08:57 CDT 01/11 CPT-71588 Abx/Therapy Injection 19:08:57 CDT CPT-J3420 Vitamin B12 1000mcg (Cyanocobalamin) 08:19:08 CDT 12/11 CPT-40274 Abx/Therapy Injection 08:19:08 CDT CPT-J3420 Vitamin B12 1000mcg (Cyanocobalamin) 14:48:00 CDT 11/09 CPT-54348 Abx/Therapy Injection 14:47:59 CDT CPT-J3420 Vitamin B12 1000mcg (Cyanocobalamin) 08:34:04 CDT 10/09 CPT-32895 Abx/Therapy Injection 08:34:04 CDT CPT-J3420 Vitamin B12 1000mcg (Cyanocobalamin) 09:18:52 CDT 09/11 CPT-21576 Abx/Therapy Injection 09:18:52 CDT CPT-J3420 Vitamin B12 1000mcg (Cyanocobalamin) 08:35:44 CDT 09/04 CPT-64824 Abx/Therapy Injection 08:35:44 CDT CPT-98420 Immunization Single Admin 11:07:16 CDT CPT-61384 Hepatitis B adult IM 11:07:16 CDT CPT-J3420 Vitamin B12 1000mcg (Cyanocobalamin) 11:00:49 CDT 08/28 CPT-J1040 Depo Medrol 80 mg (Methyl Prednisolone Acetate) 11:00: 49 CDT CPT-52639 Abx/Therapy Injection 11:00:49 CDT CPT-J1040 Depo Medrol 80 mg (Methyl Prednisolone Acetate) 09:16: 23 CDT CPT-J3420 Vitamin B12 1000mcg (Cyanocobalamin) 08:27:05 CDT 08/20 CPT-01637 Abx/Therapy Injection 08:27:05 CDT CPT-30409 Recombivax HB Injection Suspension 5 MCG/0.5ML 10:00:41 CDT CPT-72071 Administration single or combination vaccine inc oral 10 :00:41 CDT CPT-54213 Sono transvag pelvis non OB uterus ovaries cervix 16:36: 57 CDT CPT-83578 LS spine comp w obliq 09:50:55 JOIST SETTER CPT-63188 Abd compl w upright 09:50:55 JOIST SETTER CPT-J1100 Decadron 4mg (Dexamethasone) 15:51:24 JOIST SETTER CPT-J1030 Depo Medrol 40 mg (Methyl Prednisolone Acetate) 15:51: 24 JOIST SETTER CPT-81104 Abx/Therapy Injection 15:51:24 JOIST SETTER CPT-J1100 Decadron 4mg (Dexamethasone) 15:26:33 JOIST SETTER CPT-J1030 Depo Medrol 40 mg (Methyl Prednisolone Acetate) 15:26: 33 JOIST SETTER CPT-56363 Sono retroperitoneal complete kidneys and bladder 17:15: 30 CDT CPT-74685 Abd compl w upright 16:09:25 CDT CPT-J1100 Decadron 8mg (Dexamethasone) 17:07:57 CDT CPT-12403 Abx/Therapy Injection 17:07:57 CDT CPT-J1100 Decadron 8mg (Dexamethasone) 16:55:24 CDT CPT-19202 Chest 2V Frontal and Lat 16:32:44 CDT
--- OUTSIDE RECORDS SUMMARY | 2016-11-04 15:16 | XMS REPORT ---
Author Author [facility] Organization [facility] Address [address] [place], [place] [id number] Phone [phone] Summary purpose TRANSITION OF CARE AUTO GENERATION [...] tests and/or laboratory data RESULTS Routine Urinalysis [id number]:37:00 Result Normal Range Units Color YELLOW Clarity Clear Specific [place] 1.020 1.003-1.035 pH 6.5 4.5-8.0 Glucose NEGATIVE Bilirubin NEGATIVE Ketones NEGATIVE Protein NEGATIVE Urobilinogen 0.2 0-0.2 E.U./dL Nitrites NEGATIVE Blood NEGATIVE Leukocytes NEGATIVE WBCs 0-5 RBCs 0-5 Squamous Epithelial Few Bacteria 1+ Chemistry [id number]:30:00 Result Normal Range Units Sodium 141 134-145 mEq/l EMR to get blood with IV start Potassium 4.3 3.5-5.1 mEq/l EMR to get blood with IV start Chloride 106 98-107 mEq/l EMR to get blood with IV start CO2 27.3 22-28 mEq/l EMR to get blood with IV start Glucose 101 70-105 mg/dl EMR to get blood with IV start BUN 12 7-18 mg/dl EMR to get blood with IV start Creatinine 0.69 0.6-1.0 mg/dl EMR to get blood with IV start Calcium 9.1 8.4-10.2 mg/dl EMR to get blood with IV start TP - Total Protein 7.3 6.0-8.3 g/dl EMR to get blood with IV start Albumin 4.0 3.5-5 g/dl EMR to get blood with IV start Bilirubin - Total 0.3 0.1-1.0 mg/dl EMR to get blood with IV start AST 30 10-42 IU/L EMR to get blood with IV start ALT 65 12-65 IU/L EMR to get blood with IV start ALP H 93 25-72 IU/L EMR to get blood with IV start Osmolality 281.2 280-300 mOsm/L EMR to get blood with IV start Albumin/Globulin Ratio 1.2 0-8 EMR to get blood with IV start Anion GAP L 7.7 8-16 EMR to get blood with IV start BUN/Creatinine Ratio 17.4 10-20 EMR to get blood with IV start Estimated GFR 101 >=60 mL/min/1.7 EMR to get blood with IV start Hematology [id number]:30:00 Result Normal Range Units WBC 8.0 4.8-10.8 103/uL EMR to get blood with IV start RBC 4.4 4.2-5.4 106/uL EMR to get blood with IV start HGB 13.6 12.0-16.0 g/dl EMR to get blood with IV start HCT 40.9 36.9-47.0 % EMR to get blood with IV start MCV 93.4 81-99 FL EMR to get blood with IV start MCH H 31.1 27-31 pg EMR to get blood with IV start MCHC 33.3 33-37 g/dl EMR to get blood with IV start RDW 11.9 11.5-15.5 % EMR to get blood with IV start PLT 331 130-400 103/uL EMR to get blood with IV start MPV 10.3 7.3-10.4 FL EMR to get blood with IV start Neutro % 56.5 40-70 % EMR to get blood with IV start Lymph % 31.5 20-40 % EMR to get blood with IV start Dunn % 9.0 0-10.0 % EMR to get blood with IV start Eos % 2.1 0-7.0 % EMR to get blood with IV start Baso % 0.6 0-2 % EMR to get blood with IV start Neutro # 4.5 1.5-7.5 103/uL EMR to get blood with IV start Lymph # 2.5 0.9-4.0 103/uL EMR to get blood with IV start Dunn # 0.7 0-0.8 103/uL EMR to get blood with IV start Eos # 0.2 0-0.6 103/uL EMR to get blood with IV start Baso # 0.1 0-0.1 103/uL EMR to get blood with IV start Reference Lab ([facility]) [id number]:30:00 Result Normal Range Units D-Dimer 120 0-400 ng/ml Body Fluid 03-49-189922:37:00 Result Normal Range Units pH 6.5 4.5-8.0 Cardiac [id number]:30:00 Result Normal Range Units Troponin I < 0.04 0.0-0.4 ng/ml EMR to get blood with IV start Patient samples may contain heterophilic antibodies that could react in immunoassays to give falsely elevated or depressed results. This Dimension assay has been designed to minimize interference from heterophilic antibodies. Nevertheless, complete elimination of this interference from all patient specimens cannot be guaranteed. A test result that is inconsistent with the clinical picture and patient history should be interpreted with caution. Radiology Results [id number]:13:00 Chest X-Ray - 2 View PACs Image DATE OF EXAM: Jun 02 2015 RAD 0300-CHEST XRAY 2 VIEW : RADIOLOGY REPORT DATE OF SERVICE: 06/02/15 HISTORY: Chest pain during procedure, headache. CHEST X-RAY 2 VIEWS 1108 HOURS The heart and mediastinum do not show active pathology. The pulmonary osei are clear from active infiltrates. The costophrenic angles are clear. Pneumothorax is not identified. The bony structures show no active pathology. Compared to the prior study dated 06/07/2013 similar appearance is demonstrated. IMPRESSION: Normal study. DO VALDEMAR Mendes/murtaza 06/02/2015 12:20:00 / 06/02/2015 12:44:06 cc: This document has been electronically Signed by: On: DATE OF EXAM: Jun 02 2015 RAD 0300-CHEST XRAY 2 VIEW : RADIOLOGY REPORT DATE OF SERVICE: 06/02/15 HISTORY: Chest pain during procedure, headache. CHEST X-RAY 2 VIEWS 1108 HOURS The heart and mediastinum do not show active pathology. The pulmonary osei are clear from active infiltrates. The costophrenic angles are clear. Pneumothorax is not identified. The bony structures show no active pathology. Compared to the prior study dated 06/07/2013 similar appearance is demonstrated. IMPRESSION: Normal study. Pawan Morton DO WP/nh 06/02/2015 12:20:00 / 06/02/2015 12:44:06 cc: This document has been electronically Signed by: PAWAN MORTON DO On: Jun 02 20152:13P Result Amended on 2015-06-02 at 14:13:18. Previous status was [place]. [id number]:30:00 Result Normal Range Units MPV 10.3 7.3-10.4 FL EMR to get blood with IV start History of procedures No procedures recorded for this patient visit. Functional status Functional Status Finding Observation Time Diet regular 15-96-345383:53 Abdomen Appearance obese 10-70-071793:53 Abdomen non-tender 64-94-889683:53 Bowel Sounds present 41-90-605587:53 Vick no 54-58-262711:53 Urination normal 37-02-456944:53 Quality sym/unlabored :53 Cough absent 04-77-328103:53 Secretions no :53 Breath Sounds RUL clear 62-13-688787:53 Breath Sounds RML clear 39-53-897584:53 Breath Sounds RLL clear 60-34-301744:53 Breath Sounds BENJA clear 30-19-695305:53 Breath Sounds LLL clear 67-34-325080:53 Airway natural 48-02-169513:53 Chest Tube no :53 Oxygen no 47-53-399122:30 Temp >100.4 no :53 Temp <96.8 no :53 Chills with rigors no :53 HR > 90bpm no 37-37-790545:53 Respirations > 20 no 83-57-176221:53 Systolic <90 no 19-43-658305:53 headache stiff neck no 95-28-640829:53 WBC > 51541 no 75-85-424062:53 IV Site Location R AC :35 IV Type peripheral :35 IV Site Information discontinued :35 IV Site Start Attmpt 1 times 74-31-578697:10 IV Site Festus 20 62-01-082179:10 IV Site Appearance WNL 36-95-920654:10 IV Site Color clear 32-56-145113:10 IV Site Patent yes 03-10-104929:10 Dressing Type occlusive 05-19-032169:10 Nursing Note SN assessments and notes reviewed. No changes needed. 06-02-2015 13:42 Vital signs Type Value Date Respiration Rate 19breaths per minute :30 Pulse 76beats per minute :30 Oxygen Saturation 100% :30 BP Systolic 113mmHg :30 BP Diastolic 64mmHg 26-93-528333:30 Temperature 98.1F 26-51-898500:30 Social history Type Value Smoking Status FORMER SMOKER Treatment Plan No treatment plan text is available for this visit. Hospital discharge instructions Dismissal Condition fair Disposition on DC home DC Inst/Educ Give yes Med/Side Effects Rev yes PNE Vac almost 10 yrs ago Flu Vac 2014 Tetanus Vac 2014
--- OUTSIDE RECORDS SUMMARY | 2016-11-04 15:16 | XMS REPORT | Clinical Summary ---
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 V72.31 Resolved Suzan Boo [...] Hui MD Abdominal pain ICD-789.00 Inactive Vishal uHi MD Cellulitis ICD-682.9 Inactive Vishal Hui MD [...] fracture with routine healing Inactive Suzan Boo [employer] Bronchitis, acute ICD-466.0 Inactive Ahmet Carbajal MD 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 ICD-V72.31 Inactive Suzan Boo [employer] Bronchitis, acute with mild bronchospasm ICD-466.0 Inactive Suzanthuy Boo [employer] Tracheitis ICD-464.10 Inactive Suzan Boo [employer] Impetigo ICD-684 Inactive Suzan Boo [employer] Furuncle of buttock ICD-680.5 Inactive Suzan Boo APRN Vaginal irritation ICD-623.9 Inactive Suzan Boo [employer] Scalding pain on urination ICD-788.1 Inactive Suzan Boo APRN Abdominal pain, right upper quadrant ICD-789.01 Inactive Suzan Boo [employer] Dark urine ICD-791.9 Inactive Suzan Boo APRN Preop exam ICD-V72.84 Inactive Suzan Boo [employer] Medication List Medication Instructions Start Date Stop Date Generic Name NDC Status Provider Patient Instruction [id number] 50-325-40 MG TABS 1 to 2 four times a day as needed for headache [id number] Active Suzan Boo [employer] Active METOCLOPRAMIDE HCL 10 MG TABS 1 two times as needed for nausea and headaches METOCLOPRAMIDE HCL 94865665929 Active Suzan Boo APRN Active NYSTATIN 926663 UNIT/GM CREA apply three times a day to yeast rash NYSTATIN 08738400000 Active Suzan Boo APRN Active AMITIZA 24 MCG ORAL CAPS one capsule twice daily LUBIPROSTONE 51307345924 Active Suzan Boo APRN Active MIRALAX ORAL POWD 17GMS DAILY IN WATER POLYETHYLENE GLYCOL 3350 84609001147 No Longer Active Suzan Boo APRN Active LACTULOSE 10 GM/15ML ORAL SOLN 30mL oral BID for IBS-C LACTULOSE 07381040838 No Longer Active Suzan Boo APRN Active BACTRIM DS 800-160 MG TAB Take one (1) tablet by mouth twice a day for 5 days TRIMETHOPRIM-SULFAMETHOXAZOLE 59444747395 No Longer Active Suzan Boo APRN Active MUPIROCIN 2 % OINT apply twice a day MUPIROCIN 26552008665 No Longer Active Suzan Boo APRN Active BACTRIM DS 800-160 MG TABS 1 twice a day SULFAMETHOXAZOLE-TRIMETHOPRIM 23996624778 No Longer Active Suzan Boo APRN Active DIFLUCAN 150 MG TABS 1 by mouth for yeast FLUCONAZOLE 66472433199 No Longer Active Suzan Boo APRN Active LINZESS 290 MCG ORAL CAPS 1 tab 30 min prior to first meal each day. LINACLOTIDE 06767587497 No Longer Active Sheila Calderon POKER DEALER Active AMITIZA 8 MCG ORAL CAPS 1 tab BID LUBIPROSTONE 95016509464 No Longer Active Lynda Madl POKER DEALER Active TESSALON PERLES 100 MG CAPS 1 three times a day as needed for cough BENZONATATE 68263589656 No Longer Active Suzan Boo APRN Active BACTRIM DS 800-160 MG TABS 1 twice a day SULFAMETHOXAZOLE-TRIMETHOPRIM 07183602555 No Longer Active Suzan Boo APRN Active DIFLUCAN 150 MG TABS 1 by mouth for yeast FLUCONAZOLE 70971032101 No Longer Active Suzan Boo APRN Active EQ NICOTINE 21 MG/24HR TRANS PT24 Apply daily to stop smoking NICOTINE 09360521859 No Longer Active Suzan Boo APRN Active PREDNISONE 10 MG TABS 2 daily for 5 days then 1 daily for 5 days PREDNISONE 98007041741 No Longer Active Suzan Boo APRN Active LEVAQUIN 500 MG TABS 1 daily for infection LEVOFLOXACIN 86202802928 No Longer Active Suzan Boo APRN Active TROPICAMIDE 0.5 % OPHTH SOLN 1 drop PRN eye spasms TROPICAMIDE 82635573159 No Longer Active Suzan Boo APRN Active PREDNISONE 20 MG TAB 1 tablet daily x 4 days PREDNISONE 50670451387 No Longer Active Suzan Boo APRN Active ACETAMINOPHEN-CODEINE 120-12 MG/5ML SOLN 5 ml by mouth every 4-6 hours if needed for cough ACETAMINOPHEN-CODEINE 86814690228 No Longer Active Suzan Boo APRN Active KEFLEX 500 MG CAP 1 po qid CEPHALEXIN 75352804526 No Longer Active Suzan oBo APRN Active FLOVENT HFA 110 MCG/ACT AERO 2 puffs inhaled b.i.d. FLUTICASONE PROPIONATE HFA 16174408961 Active Renzo Thornton DO Active RISPERDAL 4 MG ORAL TABS 1 tab at bedtime RISPERIDONE 97146655676 Active Samantha Rothman RMA Active ZOFRAN 4 MG TABS 1 po q6hr PRN Nausea ONDANSETRON HCL No Longer Active Suzan Boo APRN Active FLUTICASONE PROPIONATE 50 MCG/ACT SUSP 2 sprays each nostril daily before bed. FLUTICASONE PROPIONATE 11762569209 No Longer Active Suzan Boo APRN Active ASPIRIN 325 MG ORAL TABS 1 tab q.d ASPIRIN 41249385421 No Longer Active Suzan Boo APRN Active HALOPERIDOL 10 MG ORAL TABS 1 tab q.d HALOPERIDOL 65411632895 No Longer Active Suzan Boo APRN Active GUAIFENESIN-CODEINE 100-10 MG/5ML SYRP 5ml every 4 to 6 hours as needed for cough GUAIFENESIN-CODEINE 83105311739 No Longer Active Suzan Boo APRN Active ZITHROMAX Z-EARNEST 250 MG TABS 2 today and then 1 daily for 4 days AZITHROMYCIN 27471566773 No Longer Active Suzan Boo APRN Active CLONAZEPAM 1 MG ORAL TABS 1 twice a day and an additional 1 tablet every other day as needed for pseudoseizures or anxiety CLONAZEPAM 47177705738 Active Suzan Boo APRN Active HYDROCODONE-ACETAMINOPHEN 5-325 MG ORAL TABS 1 tab two times a day HYDROCODONE-ACETAMINOPHEN 52049630313 No Longer Active Ahemt Carbajal MD Active LAMICTAL 100 MG ORAL TABS 1 tab 2 times qd. LAMOTRIGINE 72825364630 Active Ahmet Carbajal MD Active PREDNISONE 20 MG TABS 2 daily for 5 days then 1 daily for 5 days PREDNISONE 20566928345 No Longer Active Ahmet Carbajal MD Active FLUTICASONE PROPIONATE 50 MCG/ACT SUSP 1 to 2 sprays each nostril daily for allergies FLUTICASONE PROPIONATE 46335627099 Active Tila Valenzuela Active BENADRYL 25 MG CAP 4 po at bedtime for insomnia DIPHENHYDRAMINE HCL 02291114832 No Longer Active Ahmet Carbajal MD Active ADVAIR DISKUS 250-50 MCG/DOSE INH AEPB 1 puff twice a day for asthma FLUTICASONE-SALMETEROL 05087854386 No Longer Active Ahmet Carbajal MD Active KLONOPIN 1 MG ORAL TABS 1 tab po TID CLONAZEPAM 79732518751 No Longer Active Ahmet Carbajal MD Active ABILIFY MAINTENA 400 MG IM SUSR 400mg injection every 26 days ARIPIPRAZOLE 15896562029 No Longer Active Ahmet Carbajal MD Active TRAMADOL HCL 50 MG TABS 1/2-1 tab TID PRN TRAMADOL HCL 78414688136 No Longer Active Ahmet Carbajal MD Active BACTRIM DS 800-160 MG TABS 1 twice a day SULFAMETHOXAZOLE- TRIMETHOPRIM 46776832514 No Longer Active Ahmet Carbajal MD Active PROAIR HFA 108 (90 BASE) MCG/ACT AERS 2 puffs four times a day as needed 2015 ALBUTEROL SULFATE 40210055673 Active Honey Hinton ENGRAVER [employer]AMES Active MONISTAT 7 COMBO PACK WOODROW 100 & 2 MG-% (9GM) VAG KIT 1 applicatorful per vagina q pm x 7 MICONAZOLE NITRATE 06171750025 No Longer Active Ahmet Carbajal MD Active FLAGYL 500 MG TAB 1 tablet by mouth bid METRONIDAZOLE 89086265856 No Longer Active Ahmet Carbajal MD Active OXYCODONE HCL ER 10 MG ORAL T12A 1/2 tab by mouth every 4 hours prn OXYCODONE HCL 02358499863 No Longer Active Ahmet Carbajal MD Active METHYLPREDNISOLONE 4 MG ORAL TABS po daily METHYLPREDNISOLONE 77983506307 No Longer Active Ahmet Carbajal MD Active LEVOFLOXACIN 500 MG ORAL TABS po daily LEVOFLOXACIN 47469669068 No Longer Active Ahmet Carbajal MD Active VIIBRYD 10 MG ORAL TABS Take 1 tablet once a day VILAZODONE HCL 52786136794 No Longer Active Ahmet Carbajal MD Active TOPAMAX 50 MG ORAL TABS 1 tab twice daily TOPIRAMATE 38603665550 No Longer Active Ahmet Carbajal MD Active DICLOFENAC SODIUM 50 MG TBEC 1 tablet by mouth four times daily PRN Pain 2015 DICLOFENAC SODIUM 33450568925 No Longer Active Ahmet Carbajal MD Active ADZENYS XR-ODT 6.3 MG ORAL TBED 1 tab po daily for ADHD AMPHETAMINE 69547793744 No Longer Active Ahmet Carbajal MD Active CHANTIX 1 MG TABS 1 twice a day to help quit smoking VARENICLINE TARTRATE 29277956013 No Longer Active Dipika Burgos MD Active CHANTIX STARTING MONTH EARNEST 0.5 MG X 11 & 1 MG X 42 TABS take as directed 2015 VARENICLINE TARTRATE 37842286180 No Longer Active Dipika Burgos MD Active TESSALON PERLES 100 MG CAP 1 to 2 tablets by mouth 3 times daily as needed for cough BENZONATATE 93341010579 No Longer Active Luigi Martínez ENGRAVER [employer]AMES Active IMITREX 50 MG ORAL TABS 0.5 po x 1 PRN Headache. May repeat dose x 1 in 2 hours if needed SUMATRIPTAN SUCCINATE 85921523033 Active TAMARA Casey Active HYDROCODONE-ACETAMINOPHEN 5-325 MG TABS 1 to 2 four times a day as needed for pain use until can be seen by specialist HYDROCODONE- ACETAMINOPHEN 44130957695 No Longer Active Vishal Hui MD Active PROAIR HFA 108 (90 BASE) MCG/ACT AERS 2 puffs four times a day as needed 2015 ALBUTEROL SULFATE 71875405338 No Longer Active Vishal Hui MD Active PREDNISONE 20 MG TABS 2 daily for 5 days then 1 daily for 5 days PREDNISONE 75527322166 No Longer Active Vishal Hui MD Active ZITHROMAX Z-EARNEST 250 MG TABS 2 today and then 1 daily for 4 days AZITHROMYCIN 63868419140 No Longer Active Vishal Hui MD Active DICLOFENAC POTASSIUM TABS Take 1 tablet twice a day (pt. is not sure of the dose.) DICLOFENAC POTASSIUM TABS 58983660843 No Longer Active Vishal Hui MD Active VERAPAMIL HCL ER 120 MG ORAL CR-TABS Take 1 tablet by mouth twice a day. VERAPAMIL HCL 50879043396 Active Vishal Hui MD Active FLAGYL 500 MG TAB 1 tablet by mouth bid METRONIDAZOLE 22646096148 No Longer Active Vishal Hui MD Active VALIUM 5 MG TAB Take 1-2 tablets daily DIAZEPAM 02310508139 No Longer Active Fabiola Johnson APRN Active METOPROLOL TARTRATE 25 MG ORAL TABS 1/2 tablet twice daily for heart rate and blood pressure METOPROLOL TARTRATE 49768424934 No Longer Active Fabiola Johnson APRN Active MIRALAX PACK 1 po qd PRN Constipation POLYETHYLENE GLYCOL 3350 00344105701 No Longer Active Ahmet Carbajal MD Active MINIPRESS 2 MG CAPS 4 cap po at night PRAZOSIN HCL 04055346591 No Longer Active Ahmet Carbajal MD Active PIROXICAM 20 MG CAPS 1 cap po qd PRN Pain PIROXICAM 88723495236 No Longer Active Ahmet Carbajal MD Active TRAMADOL HCL 50 MG TABS 1-2 po TID PRN Pain TRAMADOL HCL 74683136647 No Longer Active Ahmet Carbajal MD Active METOPROLOL TARTRATE 50 MG TAB 1 po bid METOPROLOL TARTRATE 64443449949 No Longer Active Ahmet Carbajal MD Active ABILIFY 15 MG ORAL TABS 1 tab daily ARIPIPRAZOLE 33801872147 No Longer Active Ahmet Carbajal MD Active PROZAC 20 MG ORAL CAPS 1 tab daily FLUOXETINE HCL 53319270607 No Longer Active Ahmet Carbajal MD Active AMBIEN 5 MG ORAL TABS 1 tab at bedtime ZOLPIDEM TARTRATE 18463415278 No Longer Active Ahmet Carbajal MD Active PREDNISONE 20 MG TAB 2 tabs daily for 4 days, 1 tab daily for 4 days, 1/2 tab daily for 4 days PREDNISONE 69490563736 No Longer Active Ahmet Carbajal MD Active KEFLEX 500 MG CAP 1 po TID x 10 days CEPHALEXIN 12657292404 No Longer Active Vishal Hui MD Active SAPHRIS 5 MG SUBL 1 po bid ASENAPINE MALEATE 17595116388 No Longer Active Jillina Mauricio ENGRAVER [employer]ICAL FRAMES Active LATUDA 80 MG TABS Take one by mouth daily LURASIDONE HCL 92690692442 No Longer Active Jillina Fralebron ENGRAVER [employer]ICAL FRAMES Active AMLODIPINE BESYLATE 5 MG TABS 1 tablet by mouth daily AMLODIPINE BESYLATE 94381448629 No Longer Active Jillina Fralebron WALTERSN Active AMITRIPTYLINE HCL 100 MG TAB one at hs AMITRIPTYLINE HCL 25517493383 No Longer Active Vishal Hui MD Active TRAZODONE HCL 100 MG TAB take 1 at bedtime TRAZODONE HCL 82889347207 No Longer Active Vishal Hui MD Active VYVANSE 40 MG CAPS 1 daily, LISDEXAMFETAMINE DIMESYLATE 92289581047 No Longer Active Vishal Hui MD Active IBUPROFEN 600 MG TAB 1 po TID PRN IBUPROFEN 32864592535 No Longer Active Vishal Hui MD Active PROZAC 20 MG CAP Take one by mouth daily FLUOXETINE HCL 54779543559 No Longer Active Vishal Hui MD Active BACTRIM DS 800-160 MG TABS 1 pill by mouth twice daily SULFAMETHOXAZOLE-TRIMETHOPRIM 56688087231 No Longer Active Sahara Rodriguez MD PhD Active DIFLUCAN 150 MG TAB 1 tablet by mouth daily FLUCONAZOLE 79392985391 No Longer Active Vishal Hui MD Active TIZANIDINE HCL 4 MG TABS 1 po q6hr PRN Muscle Spasm/Back Pain TIZANIDINE HCL 24764809142 Active TAMARA Casey Active CLINDAMYCIN HCL 150 MG CAPS 1 four times a day CLINDAMYCIN HCL 40242535392 No Longer Active Neeraj Collins MD Active KEFLEX 500 MG ORAL CAPS 1 cap QID by mouth CEPHALEXIN 11635786303 No Longer Active Neeraj Collins MD Active DIFLUCAN 150 MG TABS 1 pill every other day x 2 doses FLUCONAZOLE 23300143189 No Longer Active Sahara Rodriguez MD PhD Active MELATONIN 3 MG CAPS 2 po q hs MELATONIN 42754946171 No Longer Active Sahara Rodriguez MD PhD Active MULTIVITAMINS CAPS Take one by mouth daily MULTIPLE VITAMIN 13589091737 No Longer Active Sahara Rodriguez MD PhD Active BACTRIM DS 800-160 MG TAB 1 tab by mouth twice daily TRIMETHOPRIM-SULFAMETHOXAZOLE 59286653255 No Longer Active Sahara Rodriguez MD PhD Active [facility] PROBIOTIC ORAL CHEW 2 daily po PROBIOTIC PRODUCT 00746238407 No Longer Active Sahara Rodriguez MD PhD Active BACTRIM DS 800-160 MG TABS 1 po BID x 7 days SULFAMETHOXAZOLE-TRIMETHOPRIM 06919695710 No Longer Active Vishal Hui MD Active CHANTIX STARTING MONTH EARNEST 0.5 MG X 11 & 1 MG X 42 TABS 0.5mg daily for 3 days , then 0.5mg BID for 4 days, then 1mg BID VARENICLINE TARTRATE 66665116054 No Longer Active TAMARA Gray Active VERAPAMIL HCL CR 120 MG TAB CR 1 po bid VERAPAMIL HCL 84901164255 No Longer Active Vishal Hui MD Active METOPROLOL SUCCINATE 50 MG TB24 1 tablet by mouth daily METOPROLOL SUCCINATE 49538341881 No Longer Active Vishal Hui MD Active SAPHRIS 10 MG SUBL 1 tab po bid ASENAPINE MALEATE 07474155700 No Longer Active iVshal Hui MD Active LISINOPRIL 20 MG TABS 1 tab po qd LISINOPRIL 90471588749 No Longer Active Vishal Hui MD Active LATUDA 20 MG TABS Take one by mouth daily LURASIDONE HCL 57281739625 No Longer Active Vishal Hui MD Active TRAZODONE HCL 50 MG TABS 1/2 tab po qd prn for anxiety TRAZODONE HCL 28969288635 No Longer Active Vishal Hui MD Active OMEPRAZOLE 20 MG TBEC 1 po q a.m. 30min prior to first food intake OMEPRAZOLE 65915748813 Active TAMARA Casey Active RANITIDINE HCL 150 MG CAPS 1 twice a day RANITIDINE HCL 08022216184 Active Lynda Xiao LPN Active LINZESS 290 MCG CAPS Take one by mouth daily LINACLOTIDE 73109315719 No Longer Active Vishal Hui MD Active SAPHRIS 5 MG SUBL 1 tab po qd ASENAPINE MALEATE 20377399248 No Longer Active Vishal Hui MD Active ZALEPLON 10 MG CAPS 1 cap po every other night ZALEPLON 53192149674 No Longer Active Vishal Hui MD Active LYRICA 50 MG CAPS 1 tab po TID PREGABALIN 24636208136 No Longer Active Vishal Hui MD Active LORATADINE 10 MG TABS 1 tab po qd LORATADINE 97710304418 No Longer Active Vishal Hui MD Active VERAPAMIL HCL ER 180 MG CR-TABS 1 tab po bid VERAPAMIL HCL 90986580537 No Longer Active Vishal Hui MD Active MIRALAX POWD 1 capfull once daily POLYETHYLENE GLYCOL 3350 73233897372 No Longer Active Vishal Hui MD Active PREDNISONE 20 MG TABS 1 tab po qd PREDNISONE 58399400829 No Longer Active Renzo Thornton DO Active LEVOFLOXACIN 500 MG TABS 1 tab po qd LEVOFLOXACIN 91584178394 No Longer Active Renzo Thornton DO Active BUSPIRONE HCL 15 MG TABS 1 tab po TID BUSPIRONE HCL 07126409827 No Longer Active Renzo Thornton DO Active BENZTROPINE MESYLATE 1 MG TABS 1 tab po qd BENZTROPINE MESYLATE 36703168736 No Longer Active Renzo Thornton DO Active ATENOLOL 25 MG TABS 1 tab po qd ATENOLOL 72629541405 No Longer Active Renzo Thornton DO Active ESCITALOPRAM OXALATE 20 MG TABS 1 tab po qd ESCITALOPRAM OXALATE 64834512643 No Longer Active Renzo Thornton DO Active ADVAIR DISKUS 250-50 MCG/DOSE AEPB 1 puff BID FLUTICASONE-SALMETEROL 45360299303 No Longer Active Renzo Thornton DO Active PREDNISONE 20 MG TAB 2 tabs daily for 3 days, 1 tab daily for 3 days, 1/2 tab daily for 2 days PREDNISONE 92405110630 No Longer Active Vishal Hui MD Active CEFDINIR 300 MG CAPS by mouth twice a day CEFDINIR 03151127239 No Longer Active Vishal Hui MD Active LANSOPRAZOLE 30 MG CPDR 1 cap po qd LANSOPRAZOLE 59540968454 No Longer Active Vishal Hui MD Active BACLOFEN 20 MG TABS 1 tab po tid BACLOFEN 25948955753 No Longer Active Vishal Hui MD Active ADVAIR DISKUS 250-50 MCG/DOSE AEPB 1 puff BID ADVAIR DISKUS 250-50 MCG/DOSE AEPB FLUTICASONE-SALMETEROL Inactive ESCITALOPRAM OXALATE 20 MG TABS 1 tab po qd ESCITALOPRAM OXALATE 20 MG TABS 018947 ESCITALOPRAM OXALATE Inactive ATENOLOL 25 MG TABS 1 tab po qd ATENOLOL 25 MG TABS 430862 ATENOLOL Inactive BENZTROPINE MESYLATE 1 MG TABS 1 tab po qd BENZTROPINE MESYLATE 1 MG TABS 757795 BENZTROPINE MESYLATE Inactive BUSPIRONE HCL 15 MG TABS 1 tab po TID BUSPIRONE HCL 15 MG TABS 223008 BUSPIRONE HCL Inactive LEVOFLOXACIN 500 MG TABS 1 tab po qd LEVOFLOXACIN 500 MG TABS 002702 LEVOFLOXACIN Inactive PREDNISONE 20 MG TABS 1 tab po qd PREDNISONE 20 MG TABS 967457 PREDNISONE Inactive MIRALAX POWD 1 capfull once daily MIRALAX POWD 316389 POLYETHYLENE GLYCOL 3350 Inactive VERAPAMIL HCL ER 180 MG CR-TABS 1 tab po bid VERAPAMIL HCL ER 180 MG CR-TABS VERAPAMIL HCL Inactive LORATADINE 10 MG TABS 1 tab po qd LORATADINE 10 MG TABS 745991 LORATADINE Inactive LYRICA 50 MG CAPS 1 tab po TID LYRICA 50 MG CAPS PREGABALIN Inactive ZALEPLON 10 MG CAPS 1 cap po every other night ZALEPLON 10 MG CAPS 791253 ZALEPLON Inactive SAPHRIS 5 MG SUBL 1 tab po qd SAPHRIS 5 MG SUBL ASENAPINE MALEATE Inactive TRAZODONE HCL 50 MG TABS 1/2 tab po qd prn for anxiety TRAZODONE HCL 50 MG TABS 014238 TRAZODONE HCL Inactive LATUDA 20 MG TABS Take one by mouth daily LATUDA 20 MG TABS LURASIDONE HCL Inactive LISINOPRIL 20 MG TABS 1 tab po qd LISINOPRIL 20 MG TABS 273261 LISINOPRIL Inactive SAPHRIS 10 MG SUBL 1 [...] twice daily BACTRIM DS 800-160 MG TAB 603215 TRIMETHOPRIM-SULFAMETHOXAZOLE Inactive MULTIVITAMINS CAPS Take one by mouth daily MULTIVITAMINS CAPS MULTIPLE VITAMIN Inactive MELATONIN 3 MG CAPS 2 po q hs MELATONIN 3 MG CAPS 030522 MELATONIN Inactive KEFLEX 500 MG ORAL CAPS 1 cap QID by mouth KEFLEX 500 MG ORAL CAPS 509411 CEPHALEXIN Inactive CLINDAMYCIN HCL 150 MG CAPS 1 four times a day CLINDAMYCIN HCL 150 MG CAPS 391910 CLINDAMYCIN HCL Inactive DIFLUCAN 150 MG TAB 1 tablet by mouth daily DIFLUCAN 150 MG TAB 535488 FLUCONAZOLE Inactive PROZAC 20 MG CAP Take one by mouth daily PROZAC 20 MG CAP 965512 FLUOXETINE HCL Inactive IBUPROFEN 600 MG TAB 1 po TID PRN IBUPROFEN 600 MG TAB 122668 IBUPROFEN Inactive VYVANSE 40 MG CAPS 1 daily, VYVANSE 40 MG CAPS LISDEXAMFETAMINE DIMESYLATE Inactive TRAZODONE HCL 100 MG TAB take 1 at bedtime TRAZODONE HCL 100 MG TAB 238111 TRAZODONE HCL Inactive AMITRIPTYLINE HCL 100 MG TAB one at hs AMITRIPTYLINE HCL 100 MG TAB 033251 AMITRIPTYLINE HCL Inactive AMLODIPINE BESYLATE 5 MG TABS 1 tablet by mouth daily AMLODIPINE BESYLATE 5 MG TABS 946009 AMLODIPINE BESYLATE Inactive LATUDA 80 MG TABS Take one by mouth daily LATUDA 80 MG TABS LURASIDONE HCL Inactive SAPHRIS 5 MG SUBL 1 po bid SAPHRIS 5 MG SUBL ASENAPINE MALEATE Inactive PREDNISONE 20 MG TAB 2 tabs daily for 4 days, 1 tab daily for 4 days, 1/2 tab daily for 4 days PREDNISONE 20 MG TAB 050687 PREDNISONE Inactive AMBIEN 5 MG ORAL TABS 1 tab at bedtime AMBIEN 5 MG ORAL TABS 115107 ZOLPIDEM TARTRATE Inactive PROZAC 20 MG ORAL CAPS 1 tab daily PROZAC 20 MG ORAL CAPS 953180 FLUOXETINE HCL Inactive ABILIFY 15 MG ORAL TABS 1 tab daily ABILIFY 15 MG ORAL TABS 688500 ARIPIPRAZOLE Inactive METOPROLOL TARTRATE 50 MG TAB 1 po bid METOPROLOL TARTRATE 50 MG TAB 709342 METOPROLOL TARTRATE Inactive TRAMADOL HCL 50 MG TABS 1-2 po TID PRN Pain TRAMADOL HCL 50 MG TABS 123483 TRAMADOL HCL Inactive PIROXICAM 20 MG CAPS 1 cap po qd PRN Pain PIROXICAM 20 MG CAPS 826845 PIROXICAM Inactive MINIPRESS 2 MG CAPS 4 cap po at night MINIPRESS 2 MG CAPS 483539 PRAZOSIN HCL Inactive MIRALAX PACK 1 po qd PRN Constipation MIRALAX PACK 745803 POLYETHYLENE GLYCOL 3350 Inactive METOPROLOL TARTRATE 25 MG ORAL TABS 1/2 tablet twice daily for heart rate and blood pressure METOPROLOL TARTRATE 25 MG ORAL TABS 062522 METOPROLOL TARTRATE Inactive VALIUM 5 MG TAB Take 1-2 tablets daily VALIUM 5 MG TAB 503643 DIAZEPAM Inactive FLAGYL 500 MG TAB 1 tablet by mouth bid FLAGYL 500 MG TAB 160620 METRONIDAZOLE Inactive DICLOFENAC POTASSIUM TABS Take 1 tablet twice a day (pt. is not sure of the dose.) DICLOFENAC POTASSIUM TABS DICLOFENAC POTASSIUM TABS Inactive ZITHROMAX Z-EARNEST 250 MG TABS 2 today and then 1 daily for 4 days ZITHROMAX Z-EARNEST 250 MG TABS 1449689 AZITHROMYCIN Inactive PREDNISONE 20 MG TABS 2 daily for 5 days then 1 daily for 5 days PREDNISONE 20 MG TABS 351114 PREDNISONE Inactive PROAIR HFA 108 (90 BASE) MCG/ACT AERS 2 puffs four times a day as needed 2015 PROAIR HFA 108 (90 BASE) MCG/ACT AERS ALBUTEROL SULFATE Inactive HYDROCODONE-ACETAMINOPHEN 5-325 MG TABS 1 to 2 four times a day as needed for pain use until can be seen by specialist HYDROCODONE- ACETAMINOPHEN 5-325 MG TABS 646877 HYDROCODONE-ACETAMINOPHEN Inactive TESSALON PERLES 100 MG CAP 1 to 2 tablets by mouth 3 times daily as needed for cough TESSALON PERLES 100 MG CAP 232620 BENZONATATE Inactive CHANTIX STARTING MONTH EARNEST 0.5 [...] Pain 2015 DICLOFENAC SODIUM 50 MG TBEC 130050 DICLOFENAC SODIUM Inactive TOPAMAX 50 MG ORAL TABS 1 tab twice daily TOPAMAX 50 MG ORAL TABS 262735 TOPIRAMATE Inactive VIIBRYD 10 MG ORAL TABS Take 1 tablet once a day VIIBRYD 10 MG ORAL TABS VILAZODONE HCL Inactive LEVOFLOXACIN 500 MG ORAL TABS po daily LEVOFLOXACIN 500 MG ORAL TABS 310247 LEVOFLOXACIN Inactive METHYLPREDNISOLONE 4 MG ORAL TABS po daily METHYLPREDNISOLONE 4 MG ORAL TABS 568853 METHYLPREDNISOLONE Inactive OXYCODONE HCL ER 10 MG ORAL T12A 1/2 tab by mouth every 4 hours prn OXYCODONE HCL ER 10 MG ORAL T12A OXYCODONE HCL Inactive FLAGYL 500 MG TAB 1 tablet by mouth bid FLAGYL 500 MG TAB 276436 METRONIDAZOLE Inactive MONISTAT 7 COMBO PACK WOODROW 100 & 2 MG-% (9GM) VAG KIT 1 applicatorful per vagina q pm x 7 MONISTAT 7 COMBO PACK WOODROW 100 & 2 MG-% (9GM) VAG KIT MICONAZOLE NITRATE Inactive BACTRIM DS 800-160 MG TABS 1 twice a day BACTRIM DS 800-160 MG TABS 911597 SULFAMETHOXAZOLE-TRIMETHOPRIM Inactive TRAMADOL HCL 50 MG TABS 1/2-1 tab TID PRN TRAMADOL HCL 50 MG TABS 367220 TRAMADOL HCL Inactive ABILIFY MAINTENA 400 MG IM SUSR 400mg injection every 26 days ABILIFY MAINTENA 400 MG IM SUSR ARIPIPRAZOLE Inactive KLONOPIN 1 MG ORAL TABS 1 tab po TID KLONOPIN 1 MG ORAL TABS 883650 CLONAZEPAM Inactive ADVAIR DISKUS 250-50 MCG/DOSE INH AEPB 1 puff twice a day for asthma ADVAIR DISKUS 250-50 MCG/DOSE INH AEPB FLUTICASONE- SALMETEROL Inactive BENADRYL 25 MG CAP 4 po at bedtime for insomnia BENADRYL 25 MG CAP DIPHENHYDRAMINE HCL Inactive PREDNISONE 20 MG TABS 2 daily for 5 days then 1 daily for 5 days PREDNISONE 20 MG TABS 176555 PREDNISONE Inactive HYDROCODONE-ACETAMINOPHEN 5-325 MG ORAL TABS 1 tab two times a day HYDROCODONE-ACETAMINOPHEN 5-325 MG ORAL TABS 967187 HYDROCODONE-ACETAMINOPHEN Inactive ZITHROMAX Z-EARNEST 250 MG TABS 2 today and then 1 daily for 4 days ZITHROMAX Z-EARNEST 250 MG TABS 6967591 AZITHROMYCIN Inactive GUAIFENESIN-CODEINE 100-10 MG/5ML SYRP 5ml every 4 to 6 hours as needed for cough GUAIFENESIN-CODEINE 100-10 MG/5ML SYRP 035306 GUAIFENESIN-CODEINE Inactive HALOPERIDOL 10 MG ORAL TABS 1 tab q.d HALOPERIDOL 10 MG ORAL TABS [id number] HALOPERIDOL Inactive ASPIRIN 325 MG ORAL TABS 1 tab q.d ASPIRIN 325 MG ORAL TABS [id number] ASPIRIN Inactive FLUTICASONE PROPIONATE 50 MCG/ACT SUSP 2 sprays each nostril daily before bed. FLUTICASONE PROPIONATE 50 MCG/ACT SUSP [id number] FLUTICASONE PROPIONATE Inactive ZOFRAN 4 MG TABS 1 po q6hr PRN Nausea ZOFRAN 4 MG TABS [id number] ONDANSETRON HCL Inactive KEFLEX 500 MG CAP 1 po qid KEFLEX 500 MG CAP 360915 CEPHALEXIN Inactive ACETAMINOPHEN-CODEINE 120-12 MG/5ML SOLN 5 ml by mouth every 4-6 hours if needed for cough ACETAMINOPHEN-CODEINE 120-12 MG/5ML SOLN 113201 ACETAMINOPHEN-CODEINE Inactive PREDNISONE 20 MG TAB 1 tablet daily x 4 days PREDNISONE 20 MG TAB [id number] PREDNISONE Inactive TROPICAMIDE 0.5 % OPHTH SOLN 1 drop PRN eye spasms TROPICAMIDE 0.5 % OPHTH SOLN 918310 TROPICAMIDE Inactive LEVAQUIN 500 MG TABS 1 daily for infection LEVAQUIN 500 MG TABS 445646 LEVOFLOXACIN Inactive PREDNISONE 10 MG TABS 2 daily for 5 days then 1 daily for 5 days PREDNISONE 10 MG TABS 188980 PREDNISONE Inactive EQ NICOTINE 21 MG/24HR TRANS [...] twice a day MUPIROCIN 2 % OINT 141891 MUPIROCIN Inactive BACTRIM DS 800-160 MG TAB Take one (1) tablet by mouth twice a day for 5 days BACTRIM DS 800-160 MG TAB [id number] TRIMETHOPRIM- SULFAMETHOXAZOLE Inactive LACTULOSE 10 GM/15ML ORAL SOLN 30mL oral BID for IBS-C LACTULOSE 10 GM/15ML ORAL SOLN 902824 LACTULOSE Inactive MIRALAX ORAL POWD 17GMS DAILY IN WATER MIRALAX ORAL POWD 499868 POLYETHYLENE GLYCOL 3350 Inactive CEFDINIR 300 MG CAPS by mouth twice a day CEFDINIR 300 MG CAPS 270367 CEFDINIR Inactive PREDNISONE 20 MG TAB 2 tabs daily for 3 days, 1 tab daily for 3 days, 1/2 tab daily for 2 days PREDNISONE 20 MG TAB 940189 PREDNISONE Inactive BACTRIM DS 800-160 MG TABS 1 po BID x 7 days BACTRIM DS 800-160 MG TABS 19820521 SULFAMETHOXAZOLE-TRIMETHOPRIM Inactive DIFLUCAN 150 MG TABS 1 pill every other day x 2 doses DIFLUCAN 150 MG TABS 292292 FLUCONAZOLE Inactive BACTRIM DS 800-160 MG TABS 1 pill by mouth twice daily BACTRIM DS 800-160 MG TABS 19820521 SULFAMETHOXAZOLE-TRIMETHOPRIM Inactive KEFLEX 500 MG CAP 1 po TID x 10 days KEFLEX 500 MG CAP 386049 CEPHALEXIN Inactive Advance Directives Directive Description Start [...] % 11.0-15.0 platelet count 443 THOUSAND/UL 10*3/mm3 143-158 4908/03/01 mean platelet volume 8.2 fL 7.5-12.5 leukocyte [...] % 11.0-15.0 platelet count 349 THOUSAND/UL 10*3/mm3 909-057 5850/04/12 mean platelet volume 8.4 fL 7.5-12.5 Lab Report: CBC W/DIFF, Comp. Metabolic Panel, HGBA1C, Magnesium - Chemistry sodium, serum 141 mmol/L 355-956 5559/07/24 carbon dioxide, venous blood 27.8 mmol/L 21.0-32.0 [...] 369 10^3/MM^3 10*3/mm3 142-424 Lab Report: Chlamydia/GC APTIMA/89376 - Lab chlamydia DNA probe NOT DETECTED NOT DETECTED Lab Report: Chlamydia/GC APTIMA/42412 - Microbiology Neisseria gonorrhoeae DNA probe NOT DETECTED NOT DETECTED Lab Report: Chlamydia/GC APTIMA/29822, Urinalysis, Complete, with Reflex ... - Lab chlamydia DNA probe NOT DETECTED NOT DETECTED Lab Report: Chlamydia/GC APTIMA/01856, Urinalysis, Complete, with Reflex ... - Microbiology Neisseria gonorrhoeae DNA probe NOT DETECTED NOT DETECTED Lab Report: Chlamydia/GC APTIMA/70475, Urinalysis, Complete, with Reflex ... - Urinalysis microalbumin/total urine volume 2 mg/L Units converted. See lab report for original value. microalbumin/creatinine ratio, urine 9 MCG/MG CREAT mg/L <30 Lab Report: Comp. Metabolic Panel - Chemistry sodium, serum 140 mmol/L 628-241 6076/08/08 carbon dioxide, venous blood 33.7 mmol/L 21.0-32.0 potassium, serum 5.0 mmol/L 3.5-5.2 chloride, serum 103 mmol/L 98-107 blood glucose 80 mg/dL 65-110 urea nitrogen, blood 13 mg/dL 7-18 creatinine, serum 0.88 mg/dL 0.55-1.30 alanine aminotransferase (SGPT), serum 54 U/L 12-78 aspartate aminotransferase (SGOT), serum 29 U/L 15-37 calcium, serum 9.7 mg/dL 8.5-10.1 bilirubin, serum, total 0.30 mg/dL 0.00-1.00 sodium, serum 140 mmol/L 223-887 4535/06/28 carbon dioxide, venous blood 23.8 mmol/L 21.0-32.0 [...] 5.0-8.5 Encounters Code Encounter Date Provider Facility CPT-54677 Level 3 Est. [facility] 10:53:17 [facility] Level [facility] Est. Patient 11:08:35 CDT Suzan [facility] CPT-47915 Level 3 Est. Patient 15:55:20 CDT [facility] CPT-16311 Level 4 Est. Patient 10:49:34 CDT [facility] CPT-26238 Level 3 Est. Patient 10:00:25 CDT Suzan [facility] CPT-53766 Level 3 Est. Patient 10:29:30 CDT Suzan [facility] CPT-88588 Level 3 Est. Patient 11:04:38 CDT Renzo Thornton [facility] CPT-91597 Level 3 Est. Patient 11:15:58 HOME [employer]ANNING CONSULTANT SALESPERSON Renzo Thornton [facility] CPT-96718 Level 3 Est. Patient 15:28:23 HOME PLANNING CONSULTANT SALESPERSON [facility] Level 4 Est. Patient 10:20:54 HOME PLANNING CONSULTANT SALESPERSON Suzan Boo [facility] CPT-90672 Level 3 Est. Patient 11:47:37 HOME PLANNING CONSULTANT SALESPERSON Ahmet Carbajal MD [facility]-67785 Level 3 Est. Patient 10:40:11 HOME PLANNING CONSULTANT SALESPERSON Ahmet Carbajal MD [facility] CPT-47203 Level 3 Est. Patient 15:07:06 HOME PLANNING CONSULTANT SALESPERSON Neeraj Collins MD [facility] CPT-01152 Level 4 Est. Patient 14:45:00 HOME PLANNING CONSULTANT SALESPERSON Ahmet Carbajal MD [facility] CPT-56896 Level 3 Est. Patient 13:59:59 CDT Luigi Martínez [facility]-17452 Level 3 Est. Patient 18:18:53 CDT Neeraj Collins MD [facility]-85459 Level 3 Est. Patient 15:50:44 CDT Vishal Hui MD [facility] CPT-85636 Level 3 Est. Patient 11:36:17 CDT Ahmet Carbajal MD [facility] CPT-72129 Level 3 Est. Patient 13:29:16 CDT Vishal Hui MD [facility] CPT-58600 Level 3 Est. Patient 14:27:52 CDT Neeraj Collins MD [facility] CPT-27190 Level 3 Est. Patient 08:56:03 CDT Luigi Martínez [facility] CPT-49547 Level 4 Est. Patient 12:11:48 CDT Fabiola Johnson [facility] CPT-32472 Level 3 New Patient 16:53:37 CDT Albert Caldera MD [facility]-03366 Level 3 Est. Patient 11:25:49 CDT Renzo Thornton DO [facility] CPT-53303 Level 3 Est. Patient 15:22:01 CDT Ahmet Carbajal MD [facility] CPT-60417 Level 4 Est. Patient 09:00:51 HOME PLANNING CONSULTANT SALESPERSON Vishal Hui MD [facility] CPT-61556 Level 3 Est. Patient 11:37:33 HOME PLANNING CONSULTANT SALESPERSON Vishal Hui MD [facility] CPT-67155 Level 3 Est. Patient 08:41:09 HOME PLANNING CONSULTANT SALESPERSON Vishal Hui MD [facility] CPT-51311 Level 4 Est. Patient 10:19:35 HOME PLANNING CONSULTANT SALESPERSON Vishal Hui MD [facility] CPT-67836 Level 3 Est. Patient 13:35:45 CDT Vishal Hui MD [facility] CPT-25622 Level 4 Est. Patient 10:08:37 CDT Vishal Hui MD [facility] CPT-18027 Level 3 Est. Patient 11:22:10 CDT Vishal Hui MD [facility] CPT-46863 Level 3 Est. Patient 11:03:32 CDT Sahara Rodriguez MD [facility] CPT-24038 Level 3 Est. Patient 09:41:35 CDT Vishal Hui MD [facility] CPT-85536 Level 3 Est. Patient 12:00:41 CDT Neeraj Collins MD [facility] CPT-83036 Level 3 Est. Patient 09:16:24 CDT Vishal Hui MD [facility] CPT-75881 Level 4 Est. Patient 13:59:09 CDT Neeraj Collins MD [facility] CPT-29496 Level 3 Est. Patient 15:19:43 CDT Renzo Thornton DO [facility] CPT-13895 Level 3 Est. Patient 18:10:26 CDT Sahara Rodriguez MD [facility] CPT-07538 Level 3 Est. Patient 14:49:50 CDT Vishal Hui MD [facility] CPT-63434 Level 4 Est. Patient 18:41:46 CDT Neeraj Collins MD [facility] CPT-90121 Level 4 Est. Patient 09:18:38 HOME PLANNING CONSULTANT SALESPERSON Vishal Hui MD [facility] CPT-13175 Level 3 Est. Patient 14:43:55 HOME PLANNING CONSULTANT SALESPERSON Vishal Hui MD [facility] CPT-91916 Level 3 Est. Patient 15:26:33 HOME PLANNING CONSULTANT SALESPERSON Sahara Rodriguez MD PhD [facility] CPT-20797 Level 3 Est. Patient 10:32:14 HOME PLANNING CONSULTANT SALESPERSON Vishal Hui MD [facility] CPT-24661 Level 3 Est. Patient 15:12:52 HOME PLANNING CONSULTANT SALESPERSON Vishal Hui MD [facility] CPT-11261 Level 4 Est. Patient 09:19:27 CDT Vishal Hui MD [facility] CPT-74434 Level 3 Est. Patient 15:53:00 CDT Renzo Thornton [facility] CPT-57620 Level 3 Est. Patient 15:50:30 CDT Renzo Thornton [facility] CPT-57256 Level 3 Est. Patient 16:55:24 CDT Vishal Hui MD [facility] Procedures Code Procedure Name Date Entry Date Standard Description CPT-96416 Venipuncture Draw Fee 10:53:17 CDT CPT-73897 EKG Trac and Interp - XRAY USE ONLY 15:59:30 CDT 09/13 CPT-28210 Chest 1V Frontal - XRAY USE ONLY 15:59:30 CDT CPT-62908 Venipuncture Draw Fee 15:44:02 CDT CPT-73886 Venipuncture Draw Fee 08:41:12 CDT CPT-79282 Abd compl w upright - XRAY USE ONLY 10:27:59 CDT 06/28 CPT-87982 Smoking Cessation counseling 11:15:58 HOME PLANNING CONSULTANT SALESPERSON CPT-G0439 [facility] Annual Wellness Exam 09:30:58 HOME PLANNING CONSULTANT SALESPERSON CPT-31010 TSH - LAB USE ONLY 08:50:26 HOME PLANNING CONSULTANT SALESPERSON CPT-31937 CBC - LAB USE ONLY 08:50:26 HOME PLANNING CONSULTANT SALESPERSON CPT-83903 Venipuncture Draw Fee 08:50:26 HOME PLANNING CONSULTANT SALESPERSON CPT-36823 Abx/Therapy Injection 17:34:30 HOME PLANNING CONSULTANT SALESPERSON CPT-67896 Nexplanon Removal with Reinsertion 14:09:32 CDT CPT-J7307 Nexplanon (Implant) 14:09:32 CDT CPT-OV Office Visit 14:09:32 CDT CPT-06069 UA w micro - LAB USE ONLY 16:21:13 CDT CPT-32233 Wet Mount - LAB USE ONLY 16:21:13 CDT CPT-78144 First Vx - Ix admin for Medicare patients 14:37:47 CDT CPT-79422 Fluzone Preservative Free Intramuscular Suspension 14:37 :47 CDT CPT-45844 Abx/Therapy Injection 13:54:22 CDT CPT-71048 Abx/Therapy Injection 08:47:09 CDT CPT-68863 Abx/Therapy Injection 13:29:56 CDT CPT-92910 Abx/Therapy Injection 08:36:16 CDT CPT-37078 Wet Mount - LAB USE ONLY 17:44:58 CDT CPT-68456 UA w micro - LAB USE ONLY 17:44:58 CDT CPT-76049 CMP - LAB USE ONLY 17:44:58 CDT CPT-39508 Venipuncture Draw Fee 17:44:58 CDT CPT-65021 Cervical Min 4V - XRAY USE ONLY 09:01:40 CDT CPT-03508 Chest 2V Frontal and Lat - XRAY USE ONLY 11:06:31 CDT CPT-16069 EKG Trac and Interp - XRAY USE ONLY 11:31:43 CDT 08/26 CPT-J3420 Vitamin B12 1000mcg (Cyanocobalamin) 08:10:26 HOME PLANNING CONSULTANT SALESPERSON 04/12 CPT-18431 Abx/Therapy Injection 08:10:26 HOME PLANNING CONSULTANT SALESPERSON CPT-G0438 Initial Annual Wellness Exam 19:01:01 HOME PLANNING CONSULTANT SALESPERSON CPT-J3420 Vitamin B12 1000mcg (Cyanocobalamin) 16:57:46 CDT 08/14 CPT-69343 Recombivax HB Injection Suspension 5 MCG/0.5ML 08:37:50 HOME PLANNING CONSULTANT SALESPERSON CPT-27964 Immunization Single Admin 08:37:50 HOME PLANNING CONSULTANT SALESPERSON CPT-J3420 Vitamin B12 1000mcg (Cyanocobalamin) 08:32:16 HOME PLANNING CONSULTANT SALESPERSON 03/11 CPT-15606 Abx/Therapy Injection 08:32:16 HOME PLANNING CONSULTANT SALESPERSON CPT-95719 Chest 2V Frontal and Lat 11:46:38 HOME PLANNING CONSULTANT SALESPERSON CPT-38799 Venipuncture Draw Fee 09:12:45 HOME PLANNING CONSULTANT SALESPERSON CPT-J3420 Vitamin B12 1000mcg (Cyanocobalamin) 08:50:15 HOME PLANNING CONSULTANT SALESPERSON 02/08 CPT-07339 Abx/Therapy Injection 08:50:15 HOME PLANNING CONSULTANT SALESPERSON CPT-Cryo Cryotherapy 10:19:35 HOME PLANNING CONSULTANT SALESPERSON CPT-000 Give Appropriate Flu Vaccine 09:22:16 CDT CPT-J3420 Vitamin B12 1000mcg (Cyanocobalamin) 19:08:57 CDT 01/11 CPT-56104 Abx/Therapy Injection 19:08:57 CDT CPT-J3420 Vitamin B12 1000mcg (Cyanocobalamin) 08:19:08 CDT 12/11 CPT-26566 Abx/Therapy Injection 08:19:08 CDT CPT-J3420 Vitamin B12 1000mcg (Cyanocobalamin) 14:48:00 CDT 11/09 CPT-38542 Abx/Therapy Injection 14:47:59 CDT CPT-J3420 Vitamin B12 1000mcg (Cyanocobalamin) 08:34:04 CDT 10/09 CPT-65043 Abx/Therapy Injection 08:34:04 CDT CPT-J3420 Vitamin B12 1000mcg (Cyanocobalamin) 09:18:52 CDT 09/11 CPT-46536 Abx/Therapy Injection 09:18:52 CDT CPT-J3420 Vitamin B12 1000mcg (Cyanocobalamin) 08:35:44 CDT 09/04 CPT-25711 Abx/Therapy Injection 08:35:44 CDT CPT-15680 Immunization Single Admin 11:07:16 CDT CPT-11416 Hepatitis B adult IM 11:07:16 CDT CPT-J3420 Vitamin B12 1000mcg (Cyanocobalamin) 11:00:49 CDT 08/28 CPT-J1040 Depo Medrol 80 mg (Methyl Prednisolone Acetate) 11:00: 49 CDT CPT-47653 Abx/Therapy Injection 11:00:49 CDT CPT-J1040 Depo Medrol 80 mg (Methyl Prednisolone Acetate) 09:16: 23 CDT CPT-J3420 Vitamin B12 1000mcg (Cyanocobalamin) 08:27:05 CDT 08/20 CPT-95231 Abx/Therapy Injection 08:27:05 CDT CPT-31952 Recombivax HB Injection Suspension 5 MCG/0.5ML 10:00:41 CDT CPT-64949 Administration single or combination vaccine inc oral 10 :00:41 CDT CPT-51698 Sono transvag pelvis non OB uterus ovaries cervix 16:36: 57 CDT CPT-99412 LS spine comp w obliq 09:50:55 HOME PLANNING CONSULTANT SALESPERSON CPT-64278 Abd compl w upright 09:50:55 HOME PLANNING CONSULTANT SALESPERSON CPT-J1100 Decadron 4mg (Dexamethasone) 15:51:24 HOME PLANNING CONSULTANT SALESPERSON CPT-J1030 Depo Medrol 40 mg (Methyl Prednisolone Acetate) 15:51: 24 HOME PLANNING CONSULTANT SALESPERSON CPT-07141 Abx/Therapy Injection 15:51:24 HOME PLANNING CONSULTANT SALESPERSON CPT-J1100 Decadron 4mg (Dexamethasone) 15:26:33 HOME PLANNING CONSULTANT SALESPERSON CPT-J1030 Depo Medrol 40 mg (Methyl Prednisolone Acetate) 15:26: 33 HOME PLANNING CONSULTANT SALESPERSON CPT-22819 Sono retroperitoneal complete kidneys and bladder 17:15: 30 CDT CPT-65584 Abd compl w upright 16:09:25 CDT CPT-J1100 Decadron 8mg (Dexamethasone) 17:07:57 CDT CPT-71963 Abx/Therapy Injection 17:07:57 CDT CPT-J1100 Decadron 8mg (Dexamethasone) 16:55:24 CDT CPT-13560 Chest 2V Frontal and Lat 16:32:44 CDT
--- OUTSIDE RECORDS SUMMARY | 2016-11-04 15:17 | XMS REPORT | Clinical Summary ---
Author Author Admin, E Organization [facility] Address Unknown Phone Unavailable Allergies, Adverse Reactions, [...] q6hr PRN Muscle Spasm/Back Pain TIZANIDINE HCL 25947312745 Active Vishal Hui MD Active CLINDAMYCIN HCL 150 MG CAPS 1 four times a day CLINDAMYCIN HCL 35565331565 No Longer Active Neeraj Collins MD Active KEFLEX 500 MG ORAL CAPS 1 cap QID by mouth CEPHALEXIN 18278044822 No Longer Active Neeraj Collins MD Active DIFLUCAN 150 MG TABS 1 pill every other day x 2 doses FLUCONAZOLE 54538439994 No Longer Active Sahara Rodriguez MD PhD Active MELATONIN 3 MG CAPS 2 po q hs MELATONIN 01997825528 No Longer Active Sahara Rodriguez MD PhD Active MULTIVITAMINS CAPS Take one by mouth daily MULTIPLE VITAMIN 34975486753 No Longer Active Sahara Rodriguez MD PhD Active BACTRIM DS 800-160 MG TAB 1 tab by mouth twice daily TRIMETHOPRIM-SULFAMETHOXAZOLE 78221513459 No Longer Active Sahara Rodriguez MD PhD Active [facility] PROBIOTIC ORAL CHEW 2 daily po PROBIOTIC PRODUCT 95087397459 No Longer Active Sahara Rodriguez MD PhD Active IBUPROFEN 600 MG TAB 1 po TID PRN IBUPROFEN 27340344709 Active Luigi Martínez DELIVERY ASSOCIATE Active BACTRIM DS 800-160 MG TABS 1 po BID x 7 days SULFAMETHOXAZOLE-TRIMETHOPRIM 59082349071 No Longer Active Vishal Hui MD Active CHANTIX STARTING MONTH EARNEST 0.5 MG X 11 & 1 MG X 42 TABS 0.5mg daily for 3 days , then 0.5mg BID for 4 days, then 1mg BID VARENICLINE TARTRATE 96915236399 No Longer Active TAMARA Gray Active METOPROLOL TARTRATE 50 MG TAB 1 po bid METOPROLOL TARTRATE 30028793300 Active Vishal Hui MD Active TRAZODONE HCL 100 MG TAB take 1 at bedtime TRAZODONE HCL 23709434952 Active Vishal Hui MD Active AMLODIPINE BESYLATE 5 MG TABS 1 tablet by mouth daily AMLODIPINE BESYLATE 87974876270 Active Vishal Hui MD Active VERAPAMIL HCL CR 120 MG TAB CR 1 po bid VERAPAMIL HCL 46614710162 No Longer Active Vishal Hui MD Active METOPROLOL SUCCINATE 50 MG TB24 1 tablet by mouth daily METOPROLOL SUCCINATE 62794762414 No Longer Active Vishal Hui MD Active TRAMADOL HCL 50 MG TABS 1-2 po TID PRN Pain TRAMADOL HCL 72430303807 Active Vishal Hui MD Active SAPHRIS 5 MG SUBL 1 po bid ASENAPINE MALEATE 14103225819 Active Vishal Hui MD Active SAPHRIS 10 MG SUBL 1 tab po bid ASENAPINE MALEATE 17493046565 No Longer Active Vishal Hui MD Active LISINOPRIL 20 MG TABS 1 tab po qd LISINOPRIL 63072618602 No Longer Active Vishal Hui MD Active BENADRYL 25 MG CAP 2 po tid prn anxiety DIPHENHYDRAMINE HCL 55483678445 Active Vishal Hui MD Active LATUDA 80 MG TABS Take one by mouth daily LURASIDONE HCL 31464848927 Active Vishal Hui MD Active LATUDA 20 MG TABS Take one by mouth daily LURASIDONE HCL 22817946903 No Longer Active Vishal Hui MD Active TRAZODONE HCL 50 MG TABS 1/2 tab po qd prn for anxiety TRAZODONE HCL 98031792942 No Longer Active Vishal Hui MD Active PIROXICAM 20 MG CAPS 1 cap po qd PRN Pain PIROXICAM 26611006094 Active Vishal Hui MD Active OMEPRAZOLE 20 MG TBEC 1 po q a.m. 30min prior to first food intake OMEPRAZOLE 08339415275 Active Vishal Hui MD Active RANITIDINE HCL 150 MG CAPS 1 twice a day RANITIDINE HCL 10361491467 Active Vishal Hui MD Active PROZAC 20 MG CAP Take one by mouth daily FLUOXETINE HCL 31703665950 Active Vishal Hui MD Active LINZESS 290 MCG CAPS Take one by mouth daily LINACLOTIDE 15266305999 Active Vishal Hui MD Active SAPHRIS 5 MG SUBL 1 tab po qd ASENAPINE MALEATE 96247369416 No Longer Active Vishal Hui MD Active ZALEPLON 10 MG CAPS 1 cap po every other night ZALEPLON 24643511592 No Longer Active Vishal Hui MD Active LYRICA 50 MG CAPS 1 tab po TID PREGABALIN 46857483657 No Longer Active Vishal Hui MD Active LORATADINE 10 MG TABS 1 tab po qd LORATADINE 96819864462 No Longer Active Vishal Hui MD Active VERAPAMIL HCL ER 180 MG CR-TABS 1 tab po bid VERAPAMIL HCL 97821282906 No Longer Active Vishal Hui MD Active MIRALAX POWD 1 capfull once daily POLYETHYLENE GLYCOL 3350 26067091236 No Longer Active Vishal Hui MD Active PREDNISONE 20 MG TABS 1 tab po qd PREDNISONE 46990607937 No Longer Active Renzo Thornton DO Active LEVOFLOXACIN 500 MG TABS 1 tab po qd LEVOFLOXACIN 60836478068 No Longer Active Renzo Thornton DO Active BUSPIRONE HCL 15 MG TABS 1 tab po TID BUSPIRONE HCL 11598165159 No Longer Active Renzo Thornton DO Active BENZTROPINE MESYLATE 1 MG TABS 1 tab po qd BENZTROPINE MESYLATE 16514608249 No Longer Active Renzo Thornton DO Active ATENOLOL 25 MG TABS 1 tab po qd ATENOLOL 07679757335 No Longer Active Renzo Thornton DO Active ESCITALOPRAM OXALATE 20 MG TABS 1 tab po qd ESCITALOPRAM OXALATE 85763497598 No Longer Active Renzo Thornton DO Active ADVAIR DISKUS 250-50 MCG/DOSE AEPB 1 puff BID FLUTICASONE-SALMETEROL 66410530258 No Longer Active Renzo Thornton DO Active PREDNISONE 20 MG TAB 2 tabs daily for 3 days, 1 tab daily for 3 days, 1/2 tab daily for 2 days PREDNISONE 19576571462 No Longer Active Vishal Hui MD Active CEFDINIR 300 MG CAPS by mouth twice a day CEFDINIR 34769422665 No Longer Active Vishal Hui MD Active LANSOPRAZOLE 30 MG CPDR 1 cap po qd LANSOPRAZOLE 02575929381 No Longer Active Vishal Hui MD Active TOPAMAX 25 MG TABS 1 tab po bid TOPIRAMATE 88883329953 Active Vishal Hui MD Active MINIPRESS 2 MG CAPS 1 cap po at night PRAZOSIN HCL 62320111662 Active Vishal Hui MD Active BACLOFEN 20 MG TABS 1 tab po tid BACLOFEN 93201141167 No Longer Active Vishal Hui MD Active ADVAIR DISKUS 250-50 MCG/DOSE AEPB 1 puff BID ADVAIR DISKUS 250-50 MCG/DOSE AEPB FLUTICASONE-SALMETEROL Inactive ESCITALOPRAM OXALATE 20 MG TABS 1 tab po qd ESCITALOPRAM OXALATE 20 MG TABS 653291 ESCITALOPRAM OXALATE Inactive ATENOLOL 25 MG TABS 1 tab po qd ATENOLOL 25 MG TABS 444514 ATENOLOL Inactive BENZTROPINE MESYLATE 1 MG TABS 1 tab po qd BENZTROPINE MESYLATE 1 MG TABS 193643 BENZTROPINE MESYLATE Inactive BUSPIRONE HCL 15 MG TABS 1 tab po TID BUSPIRONE HCL 15 MG TABS 543449 BUSPIRONE HCL Inactive LEVOFLOXACIN 500 MG TABS 1 tab po qd LEVOFLOXACIN 500 MG TABS 790098 LEVOFLOXACIN Inactive PREDNISONE 20 MG TABS 1 tab po qd PREDNISONE 20 MG TABS 448107 PREDNISONE Inactive MIRALAX POWD 1 capfull once daily MIRALAX POWD 467780 POLYETHYLENE GLYCOL 3350 Inactive VERAPAMIL HCL ER 180 MG CR-TABS 1 tab po bid VERAPAMIL HCL ER 180 MG CR-TABS VERAPAMIL HCL Inactive LORATADINE 10 MG TABS 1 tab po qd LORATADINE 10 MG TABS 952509 LORATADINE Inactive LYRICA 50 MG CAPS 1 tab po TID LYRICA 50 MG CAPS PREGABALIN Inactive ZALEPLON 10 MG CAPS 1 cap po every other night ZALEPLON 10 MG CAPS 954422 ZALEPLON Inactive SAPHRIS 5 MG SUBL 1 tab po qd SAPHRIS 5 MG SUBL ASENAPINE MALEATE Inactive TRAZODONE HCL 50 MG TABS 1/2 tab po qd prn for anxiety TRAZODONE HCL 50 MG TABS 189345 TRAZODONE HCL Inactive LATUDA 20 MG TABS Take one by mouth daily LATUDA 20 MG TABS LURASIDONE HCL Inactive LISINOPRIL 20 MG TABS 1 tab po qd LISINOPRIL 20 MG TABS 862904 LISINOPRIL Inactive SAPHRIS 10 MG SUBL 1 [...] po q hs MELATONIN 3 MG CAPS 456315 MELATONIN Inactive KEFLEX 500 MG ORAL CAPS 1 cap QID by mouth KEFLEX 500 MG ORAL CAPS 923664 CEPHALEXIN Inactive CLINDAMYCIN HCL 150 MG CAPS 1 four times a day CLINDAMYCIN HCL 150 MG CAPS 404259 CLINDAMYCIN HCL Inactive CEFDINIR 300 MG CAPS by mouth twice a day CEFDINIR 300 MG CAPS 850894 CEFDINIR Inactive PREDNISONE 20 MG TAB 2 tabs daily for 3 days, 1 tab daily for 3 days, 1/2 tab daily for 2 days PREDNISONE 20 MG TAB 058709 PREDNISONE Inactive BACTRIM DS 800-160 MG TABS 1 po BID x 7 days BACTRIM DS 800-160 MG TABS SULFAMETHOXAZOLE-TRIMETHOPRIM Inactive DIFLUCAN 150 MG TABS 1 pill every other day x 2 doses DIFLUCAN 150 MG TABS 626244 FLUCONAZOLE Inactive Vital Signs Date Name Value [...] ... - Chemistry sodium, serum 140 mmol/L 397-107 1698/05/28 potassium, serum 4.2 mmol/L 3.5-5.2 chloride, serum [...] 22 mg/dL 7-18 sodium, serum 141 mmol/L 116-522 3003 creatinine, serum 0.90 mg/dL 0.60-1.30 alanine aminotransferase (SGPT), serum 28 U/L 12-78 aspartate aminotransferase (SGOT), serum 13 U/L 15-37 calcium, serum 8.5 mg/dL 8.5-10.1 bilirubin, serum, total 0.20 mg/dL 0.00-1.00 potassium, serum 4.3 mmol/L 3.5-5.2 Lab Report: Comp. Metabolic Panel, Lipid Panel - Chemistry sodium, serum 139 mmol/L 782-927 1961/12/31 potassium, serum 4.8 mmol/L 3.5-5.2 chloride, serum 106 mmol/L 98-107 carbon dioxide, venous blood 24.3 mmol/L 21.0-32.0 blood glucose 90 mg/dL 65-110 urea nitrogen, blood 16 mg/dL 7-18 creatinine, serum 1.00 mg/dL 0.60-1.30 alanine aminotransferase (SGPT), serum 41 U/L 12-78 aspartate aminotransferase (SGOT), serum 17 U/L 15-37 calcium, serum 8.6 mg/dL 8.5-10.1 bilirubin, serum, total 0.30 mg/dL 0.00-1.00 cholesterol, serum 108 mg/dL 359-609 9095/12/31 triglyceride, serum, fasting 120 mg/dL 30-200 HDL cholesterol, serum 28 mg/dL 32-96 LDL cholesterol, serum 56 mg/dL 0-130 Lab Report: MICROALBUMIN - Chemistry albumin/creatinine ratio, urine < 30 mg/g mg/g{creat} 0-29 Lab Report: MICROALBUMIN - Lab microalbumin, urine 10 0-19 Lab Report: UADIP W/MICRO, AUTO, [facility] [place] - Chemistry RBC, urine, dipstick Negative Negative human chorionic gonadotropin, urine, qualitative (urine test) Negative Negative protein, total urine random Negative mg/dL Negative Lab Report: UADIP W/MICRO, AUTO, [facility] [place] - Urinalysis pH, urine, semiquantitative 7.0 5.0-8.5 specific gravity, urine 1.025 1.000-1.030 appearance, urine Clear Clear urine color Yellow Colorless;Lightyellow;Straw;Yellow urobilinogen, urine, semiquantitative (dipstick) 0.2 Normal leukocyte esterase, urine, by dipstick Negative Negative nitrite, urine, semiquantitative Negative Negative glucose, urine, semiquantitative Negative Negative ketones, urine, by test strip Negative Negative bilirubin, urine Negative Negative Lab Report: Varicella-Zoater Inga IgG,IgM/67183, HEP Be Antibody/556, RUB ... - Serology rubella antibody, serum, IgG 2.88 Encounters Code Encounter Date Provider Facility [place] [address] Level 3 Est. Patient 09:16:24 CDT Vishal Hui MD [facility]-[address] Level 4 Est. Patient 13:59:09 CDT Neeraj Collins MD [facility] Level 3 Est. Patient 15:19:43 CDT Renzo Thornton [facility] [place]-[address] Level 3 Est. Patient 18:10:26 CDT Sahara Rodriguez MD [place] 277873 Level 3 Est. Patient 14:49:50 CDT Vishal Hui MD [facility]653 Level 4 Est. Patient 18:41:46 CDT Neeraj Collins MD [facility]-[address] Level 4 Est. Patient 09:18:38 IT SECURITY MANAGER Vishal Hui MD [facility]-[address] Level 3 Est. Patient 14:43:55 IT SECURITY MANAGER Vishal Hui MD [facility] Level 3 Est. Patient 15:26:33 IT SECURITY MANAGER Sahara Rodriguez MD PhD [facility]97653 Level 3 Est. Patient 10:32:14 IT SECURITY MANAGER Vishal Hui MD [facility]608 Level 3 Est. Patient 15:12:52 IT SECURITY MANAGER Vishal Hui MD [facility]-[address]44 Level 4 Est. Patient 09:19:27 CDT Vishal Hui MD [facility] Level 3 Est. Patient 15:53:00 CDT Renzo Thornton DO [facility]36593 Level 3 Est. Patient 15:50:30 CDT Renzo Thornton DO [facility] CPT-34513 Level 3 Est. Patient 16:55:24 CDT Vishal Hui MD [facility] Procedures Code Procedure Name Date Entry Date Standard Description CPT-J3420 Vitamin B12 1000mcg (Cyanocobalamin) 09:18:52 CDT 09/11 CPT-58852 Abx/Therapy Injection 09:18:52 CDT CPT-J3420 Vitamin B12 1000mcg (Cyanocobalamin) 08:35:44 CDT 09/04 CPT-17866 Abx/Therapy Injection 08:35:44 CDT CPT-51002 Immunization Single Admin 11:07:16 CDT CPT-84487 Hepatitis B adult IM 11:07:16 CDT CPT-J3420 Vitamin B12 1000mcg (Cyanocobalamin) 11:00:49 CDT 08/28 CPT-J1040 Depo Medrol 80 mg (Methyl Prednisolone Acetate) 11:00: 49 CDT CPT-17921 Abx/Therapy Injection 11:00:49 CDT CPT-J1040 Depo Medrol 80 mg (Methyl Prednisolone Acetate) 09:16: 23 CDT CPT-J3420 Vitamin B12 1000mcg (Cyanocobalamin) 08:27:05 CDT 08/20 CPT-43576 Abx/Therapy Injection 08:27:05 CDT CPT-70232 Recombivax HB Injection Suspension 5 MCG/0.5ML 10:00:41 CDT CPT-09692 Administration single or combination vaccine inc oral 10 :00:41 CDT CPT-88685 Sono transvag pelvis non OB uterus ovaries cervix 16:36: 57 CDT CPT-51306 LS spine comp w obliq 09:50:55 IT SECURITY MANAGER CPT-96218 Abd compl w upright 09:50:55 IT SECURITY MANAGER CPT-J1100 Decadron 4mg (Dexamethasone) 15:51:24 IT SECURITY MANAGER CPT-J1030 Depo Medrol 40 mg (Methyl Prednisolone Acetate) 15:51: 24 IT SECURITY MANAGER CPT-46415 Abx/Therapy Injection 15:51:24 IT SECURITY MANAGER CPT-J1100 Decadron 4mg (Dexamethasone) 15:26:33 IT SECURITY MANAGER CPT-J1030 Depo Medrol 40 mg (Methyl Prednisolone Acetate) 15:26: 33 IT SECURITY MANAGER CPT-16149 Sono retroperitoneal complete kidneys and bladder 17:15: 30 CDT CPT-31595 Abd compl w upright 16:09:25 CDT CPT-J1100 Decadron 8mg (Dexamethasone) 17:07:57 CDT CPT-81141 Abx/Therapy Injection 17:07:57 CDT CPT-J1100 Decadron 8mg (Dexamethasone) 16:55:24 CDT CPT-01686 Chest 2V Frontal and Lat 16:32:44 CDT
--- OUTSIDE RECORDS SUMMARY | 2016-11-04 15:20 | XMS REPORT | Clinical Summary ---
Author Author Admin, E Organization [facility] [employer] Address Unknown Phone Unavailable Allergies, Adverse Reactions, [...] facility Sinus tachycardia 427.89 Resolved Suzan Rajeev ENGINEERING RECRUITER Other specified cardiac dysrhythmias Schizoaffective disorder 295.70 [...] Active Ahmet Carbajal MD Generalized anxiety disorder Geological Sample Tester well woman exam V72.31 Active Suzan Boo [...] MD Health screening ICD-V70.0 Inactive Suzan Boo ENGINEERING RECRUITER Sinus tachycardia ICD-427.89 Inactive Suzan Boo ENGINEERING RECRUITER Smoker/tobacco use disorder-smoking cessation discussed ICD-305.1 Inactive Vishal Hui MD Abdominal pain ICD-789.00 Inactive Vishal Hui MD Cellulitis ICD-682.9 Inactive Vishal Hui MD Pelvic pain ICD-625.9 Inactive Vishal Hui MD Abscess, skin ICD-682.9 Inactive iVshal Hui MD Physical examination ICD-V70.0 Inactive Vishal [...] Vishal Hui MD Headache, atypical ICD-784.0 Inactive Ablert Caldera MD Elevated blood glucose ICD-790.29 Inactive [...] SOLN 30mL oral daily for IBS-C LACTULOSE 60949288048 Active Suzan Boo APRN Active TESSALON PERLES 100 MG CAPS 1 three times a day as needed for cough BENZONATATE 23841613817 No Longer Active Suzan Boo APRN Active BACTRIM DS 800-160 MG TABS 1 twice a day SULFAMETHOXAZOLE-TRIMETHOPRIM 04618425566 No Longer Active Suzan Boo APRN Active DIFLUCAN 150 MG TABS 1 by mouth for yeast FLUCONAZOLE 80817544752 No Longer Active Suzan Boo APRN Active EQ NICOTINE 21 MG/24HR TRANS PT24 Apply daily to stop smoking NICOTINE 81512266854 No Longer Active Suzan Boo APRN Active PREDNISONE 10 MG TABS 2 daily for 5 days then 1 daily for 5 days PREDNISONE 38260911727 No Longer Active Suzan Boo APRN Active LEVAQUIN 500 MG TABS 1 daily for infection LEVOFLOXACIN 60218390756 No Longer Active Suzan Boo APRN Active TROPICAMIDE 0.5 % OPHTH SOLN 1 drop PRN eye spasms TROPICAMIDE 30387570773 No Longer Active Suzan Boo APRN Active PREDNISONE 20 MG TAB 1 tablet daily x 4 days PREDNISONE 07480496497 No Longer Active Suzan Boo APRN Active ACETAMINOPHEN-CODEINE 120-12 MG/5ML SOLN 5 ml by mouth every 4-6 hours if needed for cough ACETAMINOPHEN-CODEINE 12560008714 No Longer Active Suzan Boo APRN Active KEFLEX 500 MG CAP 1 po qid CEPHALEXIN 31288104200 No Longer Active Suzan Boo APRN Active FLOVENT HFA 110 MCG/ACT AERO 2 puffs inhaled b.i.d. FLUTICASONE PROPIONATE HFA 02175540649 Active Renzo Thornton DO Active RISPERDAL 4 MG ORAL TABS 1 tab at bedtime RISPERIDONE 42619788209 Active Samantha Rothman RMA Active ZOFRAN 4 MG TABS 1 po q6hr PRN Nausea ONDANSETRON HCL No Longer Active Suzan Boo APRN Active FLUTICASONE PROPIONATE 50 MCG/ACT SUSP 2 sprays each nostril daily before bed. FLUTICASONE PROPIONATE 42247810576 No Longer Active Suzan Boo APRN Active ASPIRIN 325 MG ORAL TABS 1 tab q.d ASPIRIN 73762531555 No Longer Active Suzan Boo APRN Active HALOPERIDOL 10 MG ORAL TABS 1 tab q.d HALOPERIDOL 96550298855 No Longer Active Suzan Boo APRN Active GUAIFENESIN-CODEINE 100-10 MG/5ML SYRP 5ml every 4 to 6 hours as needed for cough GUAIFENESIN-CODEINE 49871725138 No Longer Active Suzan Boo APRN Active ZITHROMAX Z-EARNEST 250 MG TABS 2 today and then 1 daily for 4 days AZITHROMYCIN 45808139252 No Longer Active Suzan Boo APRN Active CLONAZEPAM 1 MG ORAL TABS 1 twice a day and an additional 1 tablet every other day as needed for pseudoseizures or anxiety CLONAZEPAM 63573757702 Active Ahmet Carbajal MD Active HYDROCODONE-ACETAMINOPHEN 5-325 MG ORAL TABS 1 tab two times a day HYDROCODONE-ACETAMINOPHEN 05326284897 No Longer Active Ahmet Carbajal MD Active LAMICTAL 100 MG ORAL TABS 1 tab 2 times qd. LAMOTRIGINE 11116519197 Active Ahmet Carbajal MD Active PREDNISONE 20 MG TABS 2 daily for 5 days then 1 daily for 5 days PREDNISONE 97951694932 No Longer Active Ahmet Carbajal MD Active FLUTICASONE PROPIONATE 50 MCG/ACT SUSP 1 to 2 sprays each nostril daily for allergies FLUTICASONE PROPIONATE 71046560928 Active Tila Valenzuela Active BENADRYL 25 MG CAP 4 po at bedtime for insomnia DIPHENHYDRAMINE HCL 38549933229 No Longer Active Ahmet Carbajal MD Active ADVAIR DISKUS 250-50 MCG/DOSE INH AEPB 1 puff twice a day for asthma FLUTICASONE-SALMETEROL 90529985740 No Longer Active Ahmet Carbajal MD Active KLONOPIN 1 MG ORAL TABS 1 tab po TID CLONAZEPAM 32037566754 No Longer Active Ahmet Carbajal MD Active ABILIFY MAINTENA 400 MG IM SUSR 400mg injection every 26 days ARIPIPRAZOLE 72182046992 No Longer Active Ahmet Carbajal MD Active TRAMADOL HCL 50 MG TABS 1/2-1 tab TID PRN TRAMADOL HCL 54232036895 No Longer Active Ahmet Carbajal MD Active BACTRIM DS 800-160 MG TABS 1 twice a day SULFAMETHOXAZOLE- TRIMETHOPRIM 16996131727 No Longer Active Ahmet Carbajal MD Active PROAIR HFA 108 (90 BASE) MCG/ACT AERS 2 puffs four times a day as needed 2015 ALBUTEROL SULFATE 58056476682 Active Ahmet Carbajal MD Active MONISTAT 7 COMBO PACK WOODROW 100 & 2 MG-% (9GM) VAG KIT 1 applicatorful per vagina q pm x 7 MICONAZOLE NITRATE 42119245659 No Longer Active Ahmet Carbajal MD Active FLAGYL 500 MG TAB 1 tablet by mouth bid METRONIDAZOLE 28714837257 No Longer Active Ahmet Carbajal MD Active OXYCODONE HCL ER 10 MG ORAL T12A 1/2 tab by mouth every 4 hours prn OXYCODONE HCL 58040695746 No Longer Active Ahmet Carbajal MD Active METHYLPREDNISOLONE 4 MG ORAL TABS po daily METHYLPREDNISOLONE 32209228771 No Longer Active Ahmet Carbajal MD Active LEVOFLOXACIN 500 MG ORAL TABS po daily LEVOFLOXACIN 90665019068 No Longer Active Ahmet Carbajal MD Active VIIBRYD 10 MG ORAL TABS Take 1 tablet once a day VILAZODONE HCL 33231814541 No Longer Active Ahmet Carbajal MD Active TOPAMAX 50 MG ORAL TABS 1 tab twice daily TOPIRAMATE 83960845614 No Longer Active Ahmet Carbajal MD Active DICLOFENAC SODIUM 50 MG TBEC 1 tablet by mouth four times daily PRN Pain 2015 DICLOFENAC SODIUM 50876449551 No Longer Active Ahmet Carbajal MD Active ADZENYS XR-ODT 6.3 MG ORAL TBED 1 tab po daily for ADHD AMPHETAMINE 05240653587 No Longer Active Ahmet Carbajal MD Active CHANTIX 1 MG TABS 1 twice a day to help quit smoking VARENICLINE TARTRATE 45406088080 No Longer Active Dipika Burgos MD Active CHANTIX STARTING MONTH EARNEST 0.5 MG X 11 & 1 MG X 42 TABS take as directed 2015 VARENICLINE TARTRATE 92771587039 No Longer Active Dipika Burgos MD Active TESSALON PERLES 100 MG CAP 1 to 2 tablets by mouth 3 times daily as needed for cough BENZONATATE 00294897741 No Longer Active Luigi Martínez APRN Active IMITREX 50 MG ORAL TABS 0.5 po x 1 PRN Headache. May repeat dose x 1 in 2 hours if needed SUMATRIPTAN SUCCINATE 74855050163 Active Ahmet Carbajal MD Active HYDROCODONE-ACETAMINOPHEN 5-325 MG TABS 1 to 2 four times a day as needed for pain use until can be seen by specialist HYDROCODONE- ACETAMINOPHEN 65794648197 No Longer Active Vishal Hui MD Active PROAIR HFA 108 (90 BASE) MCG/ACT AERS 2 puffs four times a day as needed 2015 ALBUTEROL SULFATE 31510559629 No Longer Active Vishal Hui MD Active PREDNISONE 20 MG TABS 2 daily for 5 days then 1 daily for 5 days PREDNISONE 02560290729 No Longer Active Vishal Hui MD Active ZITHROMAX Z-EARNEST 250 MG TABS 2 today and then 1 daily for 4 days AZITHROMYCIN 75619926062 No Longer Active Vishal Hui MD Active DICLOFENAC POTASSIUM TABS Take 1 tablet twice a day (pt. is not sure of the dose.) DICLOFENAC POTASSIUM TABS 60204755466 No Longer Active Vishal Hui MD Active VERAPAMIL HCL ER 120 MG ORAL CR-TABS Take 1 tablet by mouth twice a day. VERAPAMIL HCL 09863973442 Active Vishal Hui MD Active FLAGYL 500 MG TAB 1 tablet by mouth bid METRONIDAZOLE 71601528288 No Longer Active Vishal Hui MD Active VALIUM 5 MG TAB Take 1-2 tablets daily DIAZEPAM 37953746239 No Longer Active Fabiola Johnson APRN Active METOPROLOL TARTRATE 25 MG ORAL TABS 1/2 tablet twice daily for heart rate and blood pressure METOPROLOL TARTRATE 84459195095 No Longer Active Fabiola Johnson APRN Active MIRALAX ORAL POWD 17GMS DAILY IN WATER POLYETHYLENE GLYCOL 3350 16284357433 Active TAMARA Casey Active MIRALAX PACK 1 po qd PRN Constipation POLYETHYLENE GLYCOL 3350 11211639936 No Longer Active Ahmet Carbajal MD Active MINIPRESS 2 MG CAPS 4 cap po at night PRAZOSIN HCL 06676657512 No Longer Active Ahmet Carbajal MD Active PIROXICAM 20 MG CAPS 1 cap po qd PRN Pain PIROXICAM 33860413622 No Longer Active Ahmet Carbajal MD Active TRAMADOL HCL 50 MG TABS 1-2 po TID PRN Pain TRAMADOL HCL 27254637429 No Longer Active Ahmet Carbajal MD Active METOPROLOL TARTRATE 50 MG TAB 1 po bid METOPROLOL TARTRATE 91937770117 No Longer Active Ahmet Carbajal MD Active ABILIFY 15 MG ORAL TABS 1 tab daily ARIPIPRAZOLE 38706644483 No Longer Active Ahmet Carbajal MD Active PROZAC 20 MG ORAL CAPS 1 tab daily FLUOXETINE HCL 71588917665 No Longer Active Ahmet Carbajal MD Active AMBIEN 5 MG ORAL TABS 1 tab at bedtime ZOLPIDEM TARTRATE 27664875626 No Longer Active Ahmet Carbajal MD Active PREDNISONE 20 MG TAB 2 tabs daily for 4 days, 1 tab daily for 4 days, 1/2 tab daily for 4 days PREDNISONE 59741065029 No Longer Active Ahmet Carbajal MD Active KEFLEX 500 MG CAP 1 po TID x 10 days CEPHALEXIN 95345558948 No Longer Active Vishal Hui MD Active SAPHRIS 5 MG SUBL 1 po bid ASENAPINE MALEATE 21856889974 No Longer Active Jillina Fralebron ENGINEERING RECRUITER Active LATUDA 80 MG TABS Take one by mouth daily LURASIDONE HCL 49122440710 No Longer Active Jillina Frazell ENGINEERING RECRUITER Active AMLODIPINE BESYLATE 5 MG TABS 1 tablet by mouth daily AMLODIPINE BESYLATE 01385870900 No Longer Active Jillina Mauricio ENGINEERING RECRUITER Active AMITRIPTYLINE HCL 100 MG TAB one at hs AMITRIPTYLINE HCL 52309821577 No Longer Active Vishal Hui MD Active TRAZODONE HCL 100 MG TAB take 1 at bedtime TRAZODONE HCL 82314563213 No Longer Active Vishal Hui MD Active VYVANSE 40 MG CAPS 1 daily, LISDEXAMFETAMINE DIMESYLATE 22767828162 No Longer Active Vishal Hui MD Active IBUPROFEN 600 MG TAB 1 po TID PRN IBUPROFEN 41651435731 No Longer Active Vishal Hui MD Active PROZAC 20 MG CAP Take one by mouth daily FLUOXETINE HCL 69799711610 No Longer Active Vishal Hui MD Active BACTRIM DS 800-160 MG TABS 1 pill by mouth twice daily SULFAMETHOXAZOLE-TRIMETHOPRIM 31076891355 No Longer Active Sahara Rodriguez MD PhD Active DIFLUCAN 150 MG TAB 1 tablet by mouth daily FLUCONAZOLE 90508798931 No Longer Active Vishal Hui MD Active TIZANIDINE HCL 4 MG TABS 1 po q6hr PRN Muscle Spasm/Back Pain TIZANIDINE HCL 07674939719 Active Vishal Hui MD Active CLINDAMYCIN HCL 150 MG CAPS 1 four times a day CLINDAMYCIN HCL 49067556363 No Longer Active Neeraj Collins MD Active KEFLEX 500 MG ORAL CAPS 1 cap QID by mouth CEPHALEXIN 33043442765 No Longer Active Neeraj Collins MD Active DIFLUCAN 150 MG TABS 1 pill every other day x 2 doses FLUCONAZOLE 09788898176 No Longer Active Sahara Rodriguez MD PhD Active MELATONIN 3 MG CAPS 2 po q hs MELATONIN 08969386640 No Longer Active Sahara Rodriguez MD PhD Active MULTIVITAMINS CAPS Take one by mouth daily MULTIPLE VITAMIN 09991973760 No Longer Active Sahara Rodriguez MD PhD Active BACTRIM DS 800-160 MG TAB 1 tab by mouth twice daily TRIMETHOPRIM-SULFAMETHOXAZOLE 41960031542 No Longer Active Sahara Rodriguez MD PhD Active [facility] PROBIOTIC ORAL CHEW 2 daily po PROBIOTIC PRODUCT 41463107598 No Longer Active Sahara Rodriguez MD PhD Active BACTRIM DS 800-160 MG TABS 1 po BID x 7 days SULFAMETHOXAZOLE-TRIMETHOPRIM 52919215941 No Longer Active Vishal Hui MD Active CHANTIX STARTING MONTH EARNEST 0.5 MG X 11 & 1 MG X 42 TABS 0.5mg daily for 3 days , then 0.5mg BID for 4 days, then 1mg BID VARENICLINE TARTRATE 12769144505 No Longer Active TAMARA Gray Active VERAPAMIL HCL CR 120 MG TAB CR 1 po bid VERAPAMIL HCL 58636938699 No Longer Active Vishal Hui MD Active METOPROLOL SUCCINATE 50 MG TB24 1 tablet by mouth daily METOPROLOL SUCCINATE 87127613751 No Longer Active Vishal Hui MD Active SAPHRIS 10 MG SUBL 1 tab po bid ASENAPINE MALEATE 04097289132 No Longer Active Vishal Hui MD Active LISINOPRIL 20 MG TABS 1 tab po qd LISINOPRIL 70521193360 No Longer Active Vishal Hui MD Active LATUDA 20 MG TABS Take one by mouth daily LURASIDONE HCL 02739562161 No Longer Active Vishal Hui MD Active TRAZODONE HCL 50 MG TABS 1/2 tab po qd prn for anxiety TRAZODONE HCL 73865063116 No Longer Active Vishal Hui MD Active OMEPRAZOLE 20 MG TBEC 1 po q a.m. 30min prior to first food intake OMEPRAZOLE 50993586624 Active TAMARA Casey Active RANITIDINE HCL 150 MG CAPS 1 twice a day RANITIDINE HCL 21978601327 Active Jillina Frazell ENGINEERING RECRUITER Active LINZESS 290 MCG CAPS Take one by mouth daily LINACLOTIDE 33061556730 No Longer Active Vishal Hui MD Active SAPHRIS 5 MG SUBL 1 tab po qd ASENAPINE MALEATE 03195102669 No Longer Active Vishal Hui MD Active ZALEPLON 10 MG CAPS 1 cap po every other night ZALEPLON 27133408785 No Longer Active Vishal Hui MD Active LYRICA 50 MG CAPS 1 tab po TID PREGABALIN 59434985375 No Longer Active Vishal Hui MD Active LORATADINE 10 MG TABS 1 tab po qd LORATADINE 64274571875 No Longer Active Vishal Hui MD Active VERAPAMIL HCL ER 180 MG CR-TABS 1 tab po bid VERAPAMIL HCL 81827481614 No Longer Active Vishal Hui MD Active MIRALAX POWD 1 capfull once daily POLYETHYLENE GLYCOL 3350 04209453392 No Longer Active Vishal Hui MD Active PREDNISONE 20 MG TABS 1 tab po qd PREDNISONE 68542423803 No Longer Active Renzo Thornton DO Active LEVOFLOXACIN 500 MG TABS 1 tab po qd LEVOFLOXACIN 35060625072 No Longer Active Renzo Thornton DO Active BUSPIRONE HCL 15 MG TABS 1 tab po TID BUSPIRONE HCL 22252481016 No Longer Active Renzo Thornton DO Active BENZTROPINE MESYLATE 1 MG TABS 1 tab po qd BENZTROPINE MESYLATE 16881369969 No Longer Active Renzo Thornton DO Active ATENOLOL 25 MG TABS 1 tab po qd ATENOLOL 01484407522 No Longer Active Renzo Thornton DO Active ESCITALOPRAM OXALATE 20 MG TABS 1 tab po qd ESCITALOPRAM OXALATE 39332593610 No Longer Active Renzo Thornton DO Active ADVAIR DISKUS 250-50 MCG/DOSE AEPB 1 puff BID FLUTICASONE-SALMETEROL 21521841499 No Longer Active Renzo Thornton DO Active PREDNISONE 20 MG TAB 2 tabs daily for 3 days, 1 tab daily for 3 days, 1/2 tab daily for 2 days PREDNISONE 34475592381 No Longer Active Vishal Hui MD Active CEFDINIR 300 MG CAPS by mouth twice a day CEFDINIR 69632799218 No Longer Active Vishal Hui MD Active LANSOPRAZOLE 30 MG CPDR 1 cap po qd LANSOPRAZOLE 81567792677 No Longer Active Vishal Hui MD Active BACLOFEN 20 MG TABS 1 tab po tid BACLOFEN 09887189558 No Longer Active Vishal Hui MD Active ADVAIR DISKUS 250-50 MCG/DOSE AEPB 1 puff BID ADVAIR DISKUS 250-50 MCG/DOSE AEPB FLUTICASONE-SALMETEROL Inactive ESCITALOPRAM OXALATE 20 MG TABS 1 tab po qd ESCITALOPRAM OXALATE 20 MG TABS 771600 ESCITALOPRAM OXALATE Inactive ATENOLOL 25 MG TABS 1 tab po qd ATENOLOL 25 MG TABS 950500 ATENOLOL Inactive BENZTROPINE MESYLATE 1 MG TABS 1 tab po qd BENZTROPINE MESYLATE 1 MG TABS 825231 BENZTROPINE MESYLATE Inactive BUSPIRONE HCL 15 MG TABS 1 tab po TID BUSPIRONE HCL 15 MG TABS 171686 BUSPIRONE HCL Inactive LEVOFLOXACIN 500 MG TABS 1 tab po qd LEVOFLOXACIN 500 MG TABS 454359 LEVOFLOXACIN Inactive PREDNISONE 20 MG TABS 1 tab po qd PREDNISONE 20 MG TABS 647845 PREDNISONE Inactive MIRALAX POWD 1 capfull once daily MIRALAX POWD 011375 POLYETHYLENE GLYCOL 3350 Inactive VERAPAMIL HCL ER 180 MG CR-TABS 1 tab po bid VERAPAMIL HCL ER 180 MG CR-TABS VERAPAMIL HCL Inactive LORATADINE 10 MG TABS 1 tab po qd LORATADINE 10 MG TABS 225673 LORATADINE Inactive LYRICA 50 MG CAPS 1 tab po TID LYRICA 50 MG CAPS PREGABALIN Inactive ZALEPLON 10 MG CAPS 1 cap po every other night ZALEPLON 10 MG CAPS 723417 ZALEPLON Inactive SAPHRIS 5 MG SUBL 1 tab po qd SAPHRIS 5 MG SUBL ASENAPINE MALEATE Inactive TRAZODONE HCL 50 MG TABS 1/2 tab po qd prn for anxiety TRAZODONE HCL 50 MG TABS 676825 TRAZODONE HCL Inactive LATUDA 20 MG TABS Take one by mouth daily LATUDA 20 MG TABS LURASIDONE HCL Inactive LISINOPRIL 20 MG TABS 1 tab po qd LISINOPRIL 20 MG TABS 434119 LISINOPRIL Inactive SAPHRIS 10 MG SUBL 1 [...] twice daily BACTRIM DS 800-160 MG TAB 894857 TRIMETHOPRIM-SULFAMETHOXAZOLE Inactive MULTIVITAMINS CAPS Take one by mouth daily MULTIVITAMINS CAPS MULTIPLE VITAMIN Inactive MELATONIN 3 MG CAPS 2 po q hs MELATONIN 3 MG CAPS 210024 MELATONIN Inactive KEFLEX 500 MG ORAL CAPS 1 cap QID by mouth KEFLEX 500 MG ORAL CAPS 470199 CEPHALEXIN Inactive CLINDAMYCIN HCL 150 MG CAPS 1 four times a day CLINDAMYCIN HCL 150 MG CAPS 281551 CLINDAMYCIN HCL Inactive DIFLUCAN 150 MG TAB 1 tablet by mouth daily DIFLUCAN 150 MG TAB 579470 FLUCONAZOLE Inactive PROZAC 20 MG CAP Take one by mouth daily PROZAC 20 MG CAP 665131 FLUOXETINE HCL Inactive IBUPROFEN 600 MG TAB 1 po TID PRN IBUPROFEN 600 MG TAB 925842 IBUPROFEN Inactive VYVANSE 40 MG CAPS 1 daily, VYVANSE 40 MG CAPS LISDEXAMFETAMINE DIMESYLATE Inactive TRAZODONE HCL 100 MG TAB take 1 at bedtime TRAZODONE HCL 100 MG TAB 083991 TRAZODONE HCL Inactive AMITRIPTYLINE HCL 100 MG TAB one at hs AMITRIPTYLINE HCL 100 MG TAB 058530 AMITRIPTYLINE HCL Inactive AMLODIPINE BESYLATE 5 MG TABS 1 tablet by mouth daily AMLODIPINE BESYLATE 5 MG TABS 669865 AMLODIPINE BESYLATE Inactive LATUDA 80 MG TABS Take one by mouth daily LATUDA 80 MG TABS LURASIDONE HCL Inactive SAPHRIS 5 MG SUBL 1 po bid SAPHRIS 5 MG SUBL ASENAPINE MALEATE Inactive PREDNISONE 20 MG TAB 2 tabs daily for 4 days, 1 tab daily for 4 days, 1/2 tab daily for 4 days PREDNISONE 20 MG TAB 375124 PREDNISONE Inactive AMBIEN 5 MG ORAL TABS 1 tab at bedtime AMBIEN 5 MG ORAL TABS 015730 ZOLPIDEM TARTRATE Inactive PROZAC 20 MG ORAL CAPS 1 tab daily PROZAC 20 MG ORAL CAPS 416422 FLUOXETINE HCL Inactive ABILIFY 15 MG ORAL TABS 1 tab daily ABILIFY 15 MG ORAL TABS 708602 ARIPIPRAZOLE Inactive METOPROLOL TARTRATE 50 MG TAB 1 po bid METOPROLOL TARTRATE 50 MG TAB 278012 METOPROLOL TARTRATE Inactive TRAMADOL HCL 50 MG TABS 1-2 po TID PRN Pain TRAMADOL HCL 50 MG TABS 071441 TRAMADOL HCL Inactive PIROXICAM 20 MG CAPS 1 cap po qd PRN Pain PIROXICAM 20 MG CAPS 002437 PIROXICAM Inactive MINIPRESS 2 MG CAPS 4 cap po at night MINIPRESS 2 MG CAPS 198432 PRAZOSIN HCL Inactive MIRALAX PACK 1 po qd PRN Constipation MIRALAX PACK 810167 POLYETHYLENE GLYCOL 3350 Inactive METOPROLOL TARTRATE 25 MG ORAL TABS 1/2 tablet twice daily for heart rate and blood pressure METOPROLOL TARTRATE 25 MG ORAL TABS 891185 METOPROLOL TARTRATE Inactive VALIUM 5 MG TAB Take 1-2 tablets daily VALIUM 5 MG TAB 846105 DIAZEPAM Inactive FLAGYL 500 MG TAB 1 tablet by mouth bid FLAGYL 500 MG TAB 675360 METRONIDAZOLE Inactive DICLOFENAC POTASSIUM TABS Take 1 tablet twice a day (pt. is not sure of the dose.) DICLOFENAC POTASSIUM TABS DICLOFENAC POTASSIUM TABS Inactive ZITHROMAX Z-EARNEST 250 MG TABS 2 today and then 1 daily for 4 days ZITHROMAX Z-EARNEST 250 MG TABS 9425052 AZITHROMYCIN Inactive PREDNISONE 20 MG TABS 2 daily for 5 days then 1 daily for 5 days PREDNISONE 20 MG TABS 224348 PREDNISONE Inactive PROAIR HFA 108 (90 BASE) MCG/ACT AERS 2 puffs four times a day as needed 2015 PROAIR HFA 108 (90 BASE) MCG/ACT AERS ALBUTEROL SULFATE Inactive HYDROCODONE-ACETAMINOPHEN 5-325 MG TABS 1 to 2 four times a day as needed for pain use until can be seen by specialist HYDROCODONE- ACETAMINOPHEN 5-325 MG TABS 586827 HYDROCODONE-ACETAMINOPHEN Inactive TESSALON PERLES 100 MG CAP 1 to 2 tablets by mouth 3 times daily as needed for cough TESSALON PERLES 100 MG CAP 509111 BENZONATATE Inactive CHANTIX STARTING MONTH EARNEST 0.5 [...] Pain 2015 DICLOFENAC SODIUM 50 MG TBEC 712040 DICLOFENAC SODIUM Inactive TOPAMAX 50 MG ORAL TABS 1 tab twice daily TOPAMAX 50 MG ORAL TABS 432487 TOPIRAMATE Inactive VIIBRYD 10 MG ORAL TABS Take 1 tablet once a day VIIBRYD 10 MG ORAL TABS VILAZODONE HCL Inactive LEVOFLOXACIN 500 MG ORAL TABS po daily LEVOFLOXACIN 500 MG ORAL TABS 005747 LEVOFLOXACIN Inactive METHYLPREDNISOLONE 4 MG ORAL TABS po daily METHYLPREDNISOLONE 4 MG ORAL TABS 079902 METHYLPREDNISOLONE Inactive OXYCODONE HCL ER 10 MG ORAL T12A 1/2 tab by mouth every 4 hours prn OXYCODONE HCL ER 10 MG ORAL T12A OXYCODONE HCL Inactive FLAGYL 500 MG TAB 1 tablet by mouth bid FLAGYL 500 MG TAB 442371 METRONIDAZOLE Inactive MONISTAT 7 COMBO PACK WOODROW 100 & 2 MG-% (9GM) VAG KIT 1 applicatorful per vagina q pm x 7 MONISTAT 7 COMBO PACK WOODROW 100 & 2 MG-% (9GM) VAG KIT MICONAZOLE NITRATE Inactive BACTRIM DS 800-160 MG TABS 1 twice a day BACTRIM DS 800-160 MG TABS 367256 SULFAMETHOXAZOLE-TRIMETHOPRIM Inactive TRAMADOL HCL 50 MG TABS 1/2-1 tab TID PRN TRAMADOL HCL 50 MG TABS 066467 TRAMADOL HCL Inactive ABILIFY MAINTENA 400 MG IM SUSR 400mg injection every 26 days ABILIFY MAINTENA 400 MG IM SUSR ARIPIPRAZOLE Inactive KLONOPIN 1 MG ORAL TABS 1 tab po TID KLONOPIN 1 MG ORAL TABS 496323 CLONAZEPAM Inactive ADVAIR DISKUS 250-50 MCG/DOSE INH AEPB 1 puff twice a day for asthma ADVAIR DISKUS 250-50 MCG/DOSE INH AEPB FLUTICASONE- SALMETEROL Inactive BENADRYL 25 MG CAP 4 po at bedtime for insomnia BENADRYL 25 MG CAP DIPHENHYDRAMINE HCL Inactive PREDNISONE 20 MG TABS 2 daily for 5 days then 1 daily for 5 days PREDNISONE 20 MG TABS 023742 PREDNISONE Inactive HYDROCODONE-ACETAMINOPHEN 5-325 MG ORAL TABS 1 tab two times a day HYDROCODONE-ACETAMINOPHEN 5-325 MG ORAL TABS 631171 HYDROCODONE-ACETAMINOPHEN Inactive ZITHROMAX Z-EARNEST 250 MG TABS 2 today and then 1 daily for 4 days ZITHROMAX Z-EARNEST 250 MG TABS 7823027 AZITHROMYCIN Inactive GUAIFENESIN-CODEINE 100-10 MG/5ML SYRP 5ml every 4 to 6 hours as needed for cough GUAIFENESIN-CODEINE 100-10 MG/5ML SYRP 920144 GUAIFENESIN-CODEINE Inactive HALOPERIDOL 10 MG ORAL TABS 1 tab q.d HALOPERIDOL 10 MG ORAL TABS 594445 HALOPERIDOL Inactive ASPIRIN 325 MG ORAL TABS 1 tab q.d ASPIRIN 325 MG ORAL TABS 831367 ASPIRIN Inactive FLUTICASONE PROPIONATE 50 MCG/ACT SUSP 2 sprays each nostril daily before bed. FLUTICASONE PROPIONATE 50 MCG/ACT SUSP 8250023 FLUTICASONE PROPIONATE Inactive ZOFRAN 4 MG TABS 1 po q6hr PRN Nausea ZOFRAN 4 MG TABS 120592 ONDANSETRON HCL Inactive KEFLEX 500 MG CAP 1 po qid KEFLEX 500 MG CAP 491664 CEPHALEXIN Inactive ACETAMINOPHEN-CODEINE 120-12 MG/5ML SOLN 5 ml by mouth every 4-6 hours if needed for cough ACETAMINOPHEN-CODEINE 120-12 MG/5ML SOLN 536536 ACETAMINOPHEN-CODEINE Inactive PREDNISONE 20 MG TAB 1 tablet daily x 4 days PREDNISONE 20 MG TAB 637028 PREDNISONE Inactive TROPICAMIDE 0.5 % OPHTH SOLN 1 drop PRN eye spasms TROPICAMIDE 0.5 % [facility] 769657 TROPICAMIDE Inactive LEVAQUIN 500 MG TABS 1 daily for infection LEVAQUIN 500 MG TABS 488481 LEVOFLOXACIN Inactive PREDNISONE 10 MG TABS 2 daily for 5 days then 1 daily for 5 days PREDNISONE 10 MG TABS 515374 PREDNISONE Inactive EQ NICOTINE 21 MG/24HR TRANS [...] for cough TESSALON PERLES 100 MG CAPS 532456 BENZONATATE Inactive CEFDINIR 300 MG CAPS by mouth twice a day CEFDINIR 300 MG CAPS 694081 CEFDINIR Inactive PREDNISONE 20 MG TAB 2 tabs daily for 3 days, 1 tab daily for 3 days, 1/2 tab daily for 2 days PREDNISONE 20 MG TAB 671490 PREDNISONE Inactive BACTRIM DS 800-160 MG TABS 1 po BID x 7 days BACTRIM DS 800-160 MG TABS 564396 SULFAMETHOXAZOLE-TRIMETHOPRIM Inactive DIFLUCAN 150 MG TABS 1 pill every other day x 2 doses DIFLUCAN 150 MG TABS 19751126 FLUCONAZOLE Inactive BACTRIM DS 800-160 MG TABS 1 pill by mouth twice daily BACTRIM DS 800-160 MG TABS [id number] SULFAMETHOXAZOLE-TRIMETHOPRIM Inactive KEFLEX 500 MG CAP 1 po TID x 10 days KEFLEX 500 MG CAP [id number] CEPHALEXIN Inactive Advance Directives Directive Description Start [...] % 11.0-15.0 platelet count 443 THOUSAND/UL 10*3/mm3 956-507 1403/03/01 mean platelet volume 8.2 fL 7.5-12.5 leukocyte [...] % 11.0-15.0 platelet count 349 THOUSAND/UL 10*3/mm3 941-225 7457/04/12 mean platelet volume 8.4 fL 7.5-12.5 Lab [...] 369 10^3/MM^3 10*3/mm3 142-424 Lab Report: Chlamydia/GC [id number] - Lab chlamydia DNA probe NOT DETECTED NOT DETECTED Lab Report: Chlamydia/GC APTIMA/[id number] - Microbiology Neisseria gonorrhoeae DNA probe NOT DETECTED NOT DETECTED Lab Report: Chlamydia/GC APTIMA/[id number], Urinalysis, Complete, with Reflex ... - Lab chlamydia DNA probe NOT DETECTED NOT DETECTED Lab Report: Chlamydia/GC APTIMA/[id number], Urinalysis, Complete, with Reflex ... - Microbiology Neisseria gonorrhoeae DNA probe NOT DETECTED NOT DETECTED Lab Report: Chlamydia/GC APTIMA/34291, Urinalysis, Complete, with Reflex ... - Urinalysis microalbumin/total urine volume 2 mg/L Units converted. See lab report for original value. microalbumin/creatinine ratio, urine 9 MCG/MG CREAT mg/L <30 Lab Report: Comp. Metabolic Panel - Chemistry sodium, serum 142 mmol/L 520-648 2847/06/08 carbon dioxide, venous blood 27.6 mmol/L 21.0-32.0 potassium, serum 4.0 mmol/L 3.5-5.2 chloride, serum 105 mmol/L 98-107 blood glucose 95 mg/dL 65-110 urea nitrogen, blood 8 mg/dL 7-18 creatinine, serum 0.75 mg/dL 0.55-1.30 alanine aminotransferase (SGPT), serum 49 U/L 12-78 aspartate aminotransferase (SGOT), serum 28 U/L 15-37 calcium, serum 9.4 mg/dL 8.5-10.1 bilirubin, serum, total 0.30 mg/dL 0.00-1.00 sodium, serum 140 mmol/L 567-310 9957/08/08 carbon dioxide, venous blood 33.7 mmol/L 21.0-32.0 [...] mg/dL Encounters Code Encounter Date Provider Facility CPT-50364 Level 3 Est. Patient 10:00:25 CDT Suzan Boo [facility] CPT-10991 Level 3 Est. Patient 10:29:30 CDT Suzan Boo [facility] CPT-72944 Level 3 Est. Patient 11:04:38 CDT Renzo Thornton [facility] CPT-09750 Level 3 Est. Patient 11:15:58 PERMASTONE APPLICATOR Renzo Thornton [facility] CPT-66062 Level 3 Est. Patient 15:28:23 PERMASTONE APPLICATOR Suzan Boo [facility] CPT-34540 Level 4 Est. Patient 10:20:54 PERMASTONE APPLICATOR Suzan Boo [facility] CPT-81540 Level 3 Est. Patient 11:47:37 PERMASTONE APPLICATOR Ahmet Carbajal MD [facility] CPT-22256 Level 3 Est. Patient 10:40:11 PERMASTONE APPLICATOR Ahmet Carbajal MD [facility] CPT-64115 Level 3 Est. Patient 15:07:06 PERMASTONE APPLICATOR Neeraj Collins MD [facility] CPT-45033 Level 4 Est. Patient 14:45:00 PERMASTONE APPLICATOR Ahmet Carbajal MD [facility] CPT-35897 Level 3 Est. Patient 13:59:59 CDT Luigi Martínez [facility] CPT-26801 Level 3 Est. Patient 18:18:53 CDT Neeraj Collins MD [facility] CPT-65542 Level 3 Est. Patient 15:50:44 CDT Vishal Hui MD [facility] CPT-98675 Level 3 Est. Patient 11:36:17 CDT Ahmet Carbajal MD [facility] CPT-73596 Level 3 Est. Patient 13:29:16 CDT Vishal Hui MD [facility] CPT-51049 Level 3 Est. Patient 14:27:52 CDT Neeraj Collins MD [facility] CPT-13413 Level 3 Est. Patient 08:56:03 CDT Luigi Martínez [facility] CPT-29919 Level 4 Est. Patient 12:11:48 CDT Fabiola Johnson [facility] CPT-46520 Level 3 New Patient 16:53:37 CDT Albert Caldera MD [facility] CPT-43802 Level 3 Est. Patient 11:25:49 CDT Renzo Thornton DO [facility] CPT-99894 Level 3 Est. Patient 15:22:01 CDT Ahmet Carbajal MD [facility] CPT-50744 Level 4 Est. Patient 09:00:51 PERMASTONE APPLICATOR Vishal Hui MD [facility] CPT-15845 Level 3 Est. Patient 11:37:33 PERMASTONE APPLICATOR Vishal Hui MD [facility] CPT-40795 Level 3 Est. Patient 08:41:09 PERMASTONE APPLICATOR Vishal Hui MD [facility] CPT-06145 Level 4 Est. Patient 10:19:35 PERMASTONE APPLICATOR Vishal Hui MD [facility] CPT-09975 Level 3 Est. Patient 13:35:45 CDT Vishal Hui MD [facility] CPT-87018 Level 4 Est. Patient 10:08:37 CDT Vishal Hui MD [facility]-02563 Level 3 Est. Patient 11:22:10 CDT Vishal Hui MD [facility] CPT-08906 Level 3 Est. Patient 11:03:32 CDT Sahara Rodriguez MD [facility]-17044 Level 3 Est. Patient 09:41:35 CDT Vishal Hui MD [facility]-05872 Level 3 Est. Patient 12:00:41 CDT Neeraj Collins MD [facility]-35969 Level 3 Est. Patient 09:16:24 CDT Vishal Hui MD [facility] CPT-62751 Level 4 Est. Patient 13:59:09 CDT Neeraj Collins MD [facility] CPT-02336 Level 3 Est. Patient 15:19:43 CDT Renzo Thornton DO [facility] CPT-04118 Level 3 Est. Patient 18:10:26 CDT Sahara Rodriguez MD [facility]-70744 Level 3 Est. Patient 14:49:50 CDT Vishal Hui MD [facility]-62857 Level 4 Est. Patient 18:41:46 CDT Neeraj Collins MD [facility] CPT-01839 Level 4 Est. Patient 09:18:38 PERMASTONE APPLICATOR Vishal Hui MD [facility]-64963 Level 3 Est. Patient 14:43:55 PERMASTONE APPLICATOR Vishal Hui MD [facility] CPT-67354 Level 3 Est. Patient 15:26:33 PERMASTONE APPLICATOR Sahara Rodriguez MD [facility]-32214 Level 3 Est. Patient 10:32:14 PERMASTONE APPLICATOR Vishal Hui MD [facility] CPT-53898 Level 3 Est. Patient 15:12:52 PERMASTONE APPLICATOR Vishal Hui MD [facility] CPT-03235 Level 4 Est. Patient 09:19:27 CDT Vishal Hui MD [facility] CPT-59170 Level 3 Est. Patient 15:53:00 CDT Renzo Thornton [facility] CPT-70537 Level 3 Est. Patient 15:50:30 CDT Renzo Thornton [facility] CPT-29310 Level 3 Est. Patient 16:55:24 CDT Vishal Hui MD [facility] Procedures Code Procedure Name Date Entry Date Standard Description CPT-51396 Venipuncture Draw Fee 08:41:12 CDT CPT-61470 Abd compl w upright - XRAY USE ONLY 10:27:59 CDT 06/28 CPT-14372 Smoking Cessation counseling 11:15:58 PERMASTONE APPLICATOR CPT-G0439 [facility] Annual Wellness Exam 09:30:58 PERMASTONE APPLICATOR CPT-09713 TSH - LAB USE ONLY 08:50:26 PERMASTONE APPLICATOR CPT-88078 CBC - LAB USE ONLY 08:50:26 PERMASTONE APPLICATOR CPT-23730 Venipuncture Draw Fee 08:50:26 PERMASTONE APPLICATOR CPT-51457 Abx/Therapy Injection 17:34:30 PERMASTONE APPLICATOR CPT-50720 Nexplanon Removal with Reinsertion 14:09:32 CDT CPT-J7307 Nexplanon (Implant) 14:09:32 CDT CPT-OV Office Visit 14:09:32 CDT CPT-11355 UA w micro - LAB USE ONLY 16:21:13 CDT CPT-20176 [place] Mount - LAB USE ONLY 16:21:13 CDT CPT-83148 First Vx - Ix admin for Medicare patients 14:37:47 CDT CPT-03044 Fluzone Preservative Free Intramuscular Suspension 14:37 :47 CDT CPT-57146 Abx/Therapy Injection 13:54:22 CDT CPT-04758 Abx/Therapy Injection 08:47:09 CDT CPT-79212 Abx/Therapy Injection 13:29:56 CDT CPT-38694 Abx/Therapy Injection 08:36:16 CDT CPT-99516 Wet [place] - LAB USE ONLY 17:44:58 CDT CPT-82577 UA w micro - LAB USE ONLY 17:44:58 CDT CPT-32275 CMP - LAB USE ONLY 17:44:58 CDT CPT-99962 Venipuncture Draw Fee 17:44:58 CDT CPT-75505 Cervical Min 4V - XRAY USE ONLY 09:01:40 CDT CPT-81950 Chest 2V Frontal and Lat - XRAY USE ONLY 11:06:31 CDT CPT-15841 EKG Trac and Interp - XRAY USE ONLY 11:31:43 CDT 08/26 CPT-J3420 Vitamin B12 1000mcg (Cyanocobalamin) 08:10:26 PERMASTONE APPLICATOR 04/12 CPT-88025 Abx/Therapy Injection 08:10:26 PERMASTONE APPLICATOR CPT-G0438 Initial Annual Wellness Exam 19:01:01 PERMASTONE APPLICATOR CPT-J3420 Vitamin B12 1000mcg (Cyanocobalamin) 16:57:46 CDT 08/14 CPT-21732 Recombivax HB Injection Suspension 5 MCG/0.5ML 08:37:50 PERMASTONE APPLICATOR CPT-52974 Immunization Single Admin 08:37:50 PERMASTONE APPLICATOR CPT-J3420 Vitamin B12 1000mcg (Cyanocobalamin) 08:32:16 PERMASTONE APPLICATOR 03/11 CPT-50078 Abx/Therapy Injection 08:32:16 PERMASTONE APPLICATOR CPT-32257 Chest 2V Frontal and Lat 11:46:38 PERMASTONE APPLICATOR CPT-19916 Venipuncture Draw Fee 09:12:45 PERMASTONE APPLICATOR CPT-J3420 Vitamin B12 1000mcg (Cyanocobalamin) 08:50:15 PERMASTONE APPLICATOR 02/08 CPT-21282 Abx/Therapy Injection 08:50:15 PERMASTONE APPLICATOR CPT-Cryo Cryotherapy 10:19:35 PERMASTONE APPLICATOR CPT-000 Give Appropriate Flu Vaccine 09:22:16 CDT CPT-J3420 Vitamin B12 1000mcg (Cyanocobalamin) 19:08:57 CDT 01/11 CPT-86629 Abx/Therapy Injection 19:08:57 CDT CPT-J3420 Vitamin B12 1000mcg (Cyanocobalamin) 08:19:08 CDT 12/11 CPT-25319 Abx/Therapy Injection 08:19:08 CDT CPT-J3420 Vitamin B12 1000mcg (Cyanocobalamin) 14:48:00 CDT 11/09 CPT-39905 Abx/Therapy Injection 14:47:59 CDT CPT-J3420 Vitamin B12 1000mcg (Cyanocobalamin) 08:34:04 CDT 10/09 CPT-87567 Abx/Therapy Injection 08:34:04 CDT CPT-J3420 Vitamin B12 1000mcg (Cyanocobalamin) 09:18:52 CDT 09/11 CPT-20229 Abx/Therapy Injection 09:18:52 CDT CPT-J3420 Vitamin B12 1000mcg (Cyanocobalamin) 08:35:44 CDT 09/04 CPT-20049 Abx/Therapy Injection 08:35:44 CDT CPT-15592 Immunization Single Admin 11:07:16 CDT CPT-13582 Hepatitis B adult IM 11:07:16 CDT CPT-J3420 Vitamin B12 1000mcg (Cyanocobalamin) 11:00:49 CDT 08/28 CPT-J1040 Depo Medrol 80 mg (Methyl Prednisolone Acetate) 11:00: 49 CDT CPT-35770 Abx/Therapy Injection 11:00:49 CDT CPT-J1040 Depo Medrol 80 mg (Methyl Prednisolone Acetate) 09:16: 23 CDT CPT-J3420 Vitamin B12 1000mcg (Cyanocobalamin) 08:27:05 CDT 08/20 CPT-02991 Abx/Therapy Injection 08:27:05 CDT CPT-87632 Recombivax HB Injection Suspension 5 MCG/0.5ML 10:00:41 CDT CPT-69832 Administration single or combination vaccine inc oral 10 :00:41 CDT CPT-80773 Sono transvag pelvis non OB uterus ovaries cervix 16:36: 57 CDT CPT-67328 LS spine comp w obliq 09:50:55 PERMASTONE APPLICATOR CPT-93524 Abd compl w upright 09:50:55 PERMASTONE APPLICATOR CPT-J1100 Decadron 4mg (Dexamethasone) 15:51:24 PERMASTONE APPLICATOR CPT-J1030 Depo Medrol 40 mg (Methyl Prednisolone Acetate) 15:51: 24 PERMASTONE APPLICATOR CPT-47991 Abx/Therapy Injection 15:51:24 PERMASTONE APPLICATOR CPT-J1100 Decadron 4mg (Dexamethasone) 15:26:33 PERMASTONE APPLICATOR CPT-J1030 Depo Medrol 40 mg (Methyl Prednisolone Acetate) 15:26: 33 PERMASTONE APPLICATOR CPT-57557 Sono retroperitoneal complete kidneys and bladder 17:15: 30 CDT CPT-13253 Abd compl w upright 16:09:25 CDT CPT-J1100 Decadron 8mg (Dexamethasone) 17:07:57 CDT CPT-62728 Abx/Therapy Injection 17:07:57 CDT CPT-J1100 Decadron 8mg (Dexamethasone) 16:55:24 CDT CPT-11917 Chest 2V Frontal and Lat 16:32:44 CDT
--- OUTSIDE RECORDS SUMMARY | 2016-11-04 15:23 | XMS REPORT | Clinical Summary ---
Author Author Admin, E Organization [facility] Address Unknown Phone Unavailable Allergies, Adverse [...] of breath Nocturnal hypoxia 799.02 Active Fabiola Jonhson MEMBER SERVICES REPRESENTATIVE Hypoxemia Neck pain 723.1 Resolved Vishal Hui [...] TABS 1/2-1 tab TID PRN TRAMADOL HCL 25988281935 Active Lynda Ninoska BREAKFAST MANAGER Active PROAIR HFA 108 (90 BASE) MCG/ACT AERS 2 puffs four times a day as needed 2015 ALBUTEROL SULFATE 64108179431 Active Ahmet Carbajal MD Active EQ NICOTINE 21 MG/24HR TRANS PT24 Apply daily to stop smoking NICOTINE 93406555052 Active Ahmet Carbajal MD Active BACTRIM DS 800-160 MG TABS 1 twice a day SULFAMETHOXAZOLE- TRIMETHOPRIM 58522716973 Active Ahmet Carbajal MD Active ADVAIR DISKUS 250-50 MCG/DOSE INH AEPB 1 puff twice a day for asthma FLUTICASONE-SALMETEROL 06402662454 Active Ahmet Carbajal MD Active MONISTAT 7 COMBO PACK WOODROW 100 & 2 MG-% (9GM) VAG KIT 1 applicatorful per vagina q pm x 7 MICONAZOLE NITRATE 70880123236 No Longer Active Ahmet Carbajal MD Active FLAGYL 500 MG TAB 1 tablet by mouth bid METRONIDAZOLE 90314995623 No Longer Active Ahmet Carbajal MD Active OXYCODONE HCL ER 10 MG ORAL T12A 1/2 tab by mouth every 4 hours prn OXYCODONE HCL 64009706475 No Longer Active Ahmet Carbajal MD Active METHYLPREDNISOLONE 4 MG ORAL TABS po daily METHYLPREDNISOLONE 65543875611 No Longer Active Ahmet Carbajal MD Active LEVOFLOXACIN 500 MG ORAL TABS po daily LEVOFLOXACIN 39764158691 No Longer Active Ahmet Carbajal MD Active VIIBRYD 10 MG ORAL TABS Take 1 tablet once a day VILAZODONE HCL 08396672838 No Longer Active Ahmet Carbajal MD Active TOPAMAX 50 MG ORAL TABS 1 tab twice daily TOPIRAMATE 01075088771 No Longer Active Ahmet Carbajal MD Active DICLOFENAC SODIUM 50 MG TBEC 1 tablet by mouth four times daily PRN Pain 2015 DICLOFENAC SODIUM 21836382667 No Longer Active Ahmet Carbajal MD Active ADZENYS XR-ODT 6.3 MG ORAL TBED 1 tab po daily for ADHD AMPHETAMINE 20145464658 No Longer Active Ahmet Carbajal MD Active CHANTIX 1 MG TABS 1 twice a day to help quit smoking VARENICLINE TARTRATE 80341288336 No Longer Active Dipika Burgos MD Active CHANTIX STARTING MONTH EARNEST 0.5 MG X 11 & 1 MG X 42 TABS take as directed 2015 VARENICLINE TARTRATE 46812897262 No Longer Active Dipika Burgos MD Active TESSALON PERLES 100 MG CAP 1 to 2 tablets by mouth 3 times daily as needed for cough BENZONATATE 99037904826 No Longer Active Luigi Martínez MEMBER SERVICES REPRESENTATIVE Active KENN MAINTENA 400 MG IM SUSR 400mg injection every 26 days ARIPIPRAZOLE 83968659547 Active Silvia Casey BREAKFAST MANAGER Active IMITREX 50 MG ORAL TABS 0.5 po x 1 PRN Headache. May repeat dose x 1 in 2 hours if needed SUMATRIPTAN SUCCINATE 63253415271 Active Vishal Hui MD Active HYDROCODONE-ACETAMINOPHEN 5-325 MG TABS 1 to 2 four times a day as needed for pain use until can be seen by specialist HYDROCODONE- ACETAMINOPHEN 49991478699 No Longer Active Vishal Hui MD Active PROAIR HFA 108 (90 BASE) MCG/ACT AERS 2 puffs four times a day as needed 2015 ALBUTEROL SULFATE 70962847624 No Longer Active Vishal Hui MD Active PREDNISONE 20 MG TABS 2 daily for 5 days then 1 daily for 5 days PREDNISONE 89749689721 No Longer Active Vishal Hui MD Active ZITHROMAX Z-EARNEST 250 MG TABS 2 today and then 1 daily for 4 days AZITHROMYCIN 51811158408 No Longer Active Vishal Hui MD Active DICLOFENAC POTASSIUM TABS Take 1 tablet twice a day (pt. is not sure of the dose.) DICLOFENAC POTASSIUM TABS 49368112429 No Longer Active Vishal Hui MD Active VERAPAMIL HCL ER 120 MG ORAL CR-TABS Take 1 tablet by mouth twice a day. VERAPAMIL HCL 13526947705 Active Vishal Hui MD Active FLAGYL 500 MG TAB 1 tablet by mouth bid METRONIDAZOLE 38906205595 No Longer Active Vishal Hui MD Active FLUTICASONE PROPIONATE 50 MCG/ACT SUSP 2 sprays each nostril daily before bed. FLUTICASONE PROPIONATE 99047868967 Active Fabiola Johnson APRN Active BENADRYL 25 MG CAP 4 po at bedtime for insomnia DIPHENHYDRAMINE HCL 97103431932 Active Fabiola Johnson APRN Active KLONOPIN 1 MG ORAL TABS 1 tab po TID CLONAZEPAM 89505026386 Active Fabiola Johnson APRN Active VALIUM 5 MG TAB Take 1-2 tablets daily DIAZEPAM 70191106015 No Longer Active Fabiola Johnson APRN Active METOPROLOL TARTRATE 25 MG ORAL TABS 1/2 tablet twice daily for heart rate and blood pressure METOPROLOL TARTRATE 07708799067 No Longer Active Fabiola Johnson APRN Active MIRALAX ORAL POWD 17GMS DAILY IN WATER POLYETHYLENE GLYCOL 3350 25697619610 Active Vishal Hui MD Active MIRALAX PACK 1 po qd PRN Constipation POLYETHYLENE GLYCOL 3350 80606773080 No Longer Active Ahmet Carbajal MD Active MINIPRESS 2 MG CAPS 4 cap po at night PRAZOSIN HCL 55098955386 No Longer Active Ahmet Carbajal MD Active PIROXICAM 20 MG CAPS 1 cap po qd PRN Pain PIROXICAM 37035427741 No Longer Active Ahmet Carbajal MD Active TRAMADOL HCL 50 MG TABS 1-2 po TID PRN Pain TRAMADOL HCL 29796460665 No Longer Active Ahmet Carbajal MD Active METOPROLOL TARTRATE 50 MG TAB 1 po bid METOPROLOL TARTRATE 07826475146 No Longer Active Ahmet Carbajal MD Active ABILIFY 15 MG ORAL TABS 1 tab daily ARIPIPRAZOLE 06553028263 No Longer Active Ahmet Carbajal MD Active PROZAC 20 MG ORAL CAPS 1 tab daily FLUOXETINE HCL 16000347886 No Longer Active Ahmet Carbajal MD Active AMBIEN 5 MG ORAL TABS 1 tab at bedtime ZOLPIDEM TARTRATE 12037177926 No Longer Active Ahmet Carbajal MD Active PREDNISONE 20 MG TAB 2 tabs daily for 4 days, 1 tab daily for 4 days, 1/2 tab daily for 4 days PREDNISONE 20573282950 No Longer Active Ahmet Carbajal MD Active KEFLEX 500 MG CAP 1 po TID x 10 days CEPHALEXIN 98911768548 No Longer Active Vishal Hui MD Active SAPHRIS 5 MG SUBL 1 po bid ASENAPINE MALEATE 96055028022 No Longer Active Pacollina Mauricio NORIEGA Active LATUDA 80 MG TABS Take one by mouth daily LURASIDONE HCL 88709197721 No Longer Active Jillina Frazelephraim MEMBER SERVICES REPRESENTATIVE Active AMLODIPINE BESYLATE 5 MG TABS 1 tablet by mouth daily AMLODIPINE BESYLATE 74786077901 No Longer Active Jillina Frazell MEMBER SERVICES REPRESENTATIVE Active AMITRIPTYLINE HCL 100 MG TAB one at hs AMITRIPTYLINE HCL 15552386265 No Longer Active Vishal Hui MD Active TRAZODONE HCL 100 MG TAB take 1 at bedtime TRAZODONE HCL 54873767979 No Longer Active Vishal Hui MD Active VYVANSE 40 MG CAPS 1 daily, LISDEXAMFETAMINE DIMESYLATE 93243627001 No Longer Active Vishal Hui MD Active IBUPROFEN 600 MG TAB 1 po TID PRN IBUPROFEN 91249598115 No Longer Active Vishal Hui MD Active PROZAC 20 MG CAP Take one by mouth daily FLUOXETINE HCL 17060088983 No Longer Active Vishal Hui MD Active ZOFRAN 4 MG TABS 1 po q6hr PRN Nausea ONDANSETRON HCL Active Vishal Hui MD Active BACTRIM DS 800-160 MG TABS 1 pill by mouth twice daily SULFAMETHOXAZOLE-TRIMETHOPRIM 57333452136 No Longer Active Sahara Rodriguez MD PhD Active DIFLUCAN 150 MG TAB 1 tablet by mouth daily FLUCONAZOLE 01671759904 No Longer Active Vishal Hui MD Active TIZANIDINE HCL 4 MG TABS 1 po q6hr PRN Muscle Spasm/Back Pain TIZANIDINE HCL 03584336090 Active Vishal Hui MD Active CLINDAMYCIN HCL 150 MG CAPS 1 four times a day CLINDAMYCIN HCL 12507735699 No Longer Active Neeraj Collins MD Active KEFLEX 500 MG ORAL CAPS 1 cap QID by mouth CEPHALEXIN 97729273515 No Longer Active Neeraj Collins MD Active DIFLUCAN 150 MG TABS 1 pill every other day x 2 doses FLUCONAZOLE 87057521582 No Longer Active Sahara Rodriguez MD PhD Active MELATONIN 3 MG CAPS 2 po q hs MELATONIN 34490767605 No Longer Active Sahara Rodriguez MD PhD Active MULTIVITAMINS CAPS Take one by mouth daily MULTIPLE VITAMIN 11884469958 No Longer Active Sahara Rodriguez MD PhD Active BACTRIM DS 800-160 MG TAB 1 tab by mouth twice daily TRIMETHOPRIM-SULFAMETHOXAZOLE 12909179423 No Longer Active Sahara Rodriguez MD PhD Active [facility] PROBIOTIC ORAL CHEW 2 daily po PROBIOTIC PRODUCT 84253389668 No Longer Active Sahara Rodriguez MD PhD Active BACTRIM DS 800-160 MG TABS 1 po BID x 7 days SULFAMETHOXAZOLE-TRIMETHOPRIM 03325697321 No Longer Active Vishal Hui MD Active CHANTIX STARTING MONTH EARNEST 0.5 MG X 11 & 1 MG X 42 TABS 0.5mg daily for 3 days , then 0.5mg BID for 4 days, then 1mg BID VARENICLINE TARTRATE 62744870851 No Longer Active TAMARA Gray Active VERAPAMIL HCL CR 120 MG TAB CR 1 po bid VERAPAMIL HCL 72406058038 No Longer Active Vishal Hui MD Active METOPROLOL SUCCINATE 50 MG TB24 1 tablet by mouth daily METOPROLOL SUCCINATE 53268707471 No Longer Active Vishal Hui MD Active SAPHRIS 10 MG SUBL 1 tab po bid ASENAPINE MALEATE 28266559757 No Longer Active Vishal Hui MD Active LISINOPRIL 20 MG TABS 1 tab po qd LISINOPRIL 99166613175 No Longer Active Vishal Hui MD Active LATUDA 20 MG TABS Take one by mouth daily LURASIDONE HCL 34510545412 No Longer Active Vishal Hui MD Active TRAZODONE HCL 50 MG TABS 1/2 tab po qd prn for anxiety TRAZODONE HCL 19588547286 No Longer Active Vishal Hui MD Active OMEPRAZOLE 20 MG TBEC 1 po q a.m. 30min prior to first food intake OMEPRAZOLE 45113478620 Active Vishal Hui MD Active RANITIDINE HCL 150 MG CAPS 1 twice a day RANITIDINE HCL 09867467636 Active Luigi Martínez APRN Active LINZESS 290 MCG CAPS Take one by mouth daily LINACLOTIDE 20114223698 No Longer Active Vishal Hui MD Active SAPHRIS 5 MG SUBL 1 tab po qd ASENAPINE MALEATE 16611070949 No Longer Active Vishal Hui MD Active ZALEPLON 10 MG CAPS 1 cap po every other night ZALEPLON 43761348270 No Longer Active Vishal Hui MD Active LYRICA 50 MG CAPS 1 tab po TID PREGABALIN 04383196400 No Longer Active Vishal Hui MD Active LORATADINE 10 MG TABS 1 tab po qd LORATADINE 76917804274 No Longer Active Vishal Hui MD Active VERAPAMIL HCL ER 180 MG CR-TABS 1 tab po bid VERAPAMIL HCL 71018287125 No Longer Active Vishal Hui MD Active MIRALAX POWD 1 capfull once daily POLYETHYLENE GLYCOL 3350 92300703673 No Longer Active Vishal Hui MD Active PREDNISONE 20 MG TABS 1 tab po qd PREDNISONE 23739041691 No Longer Active Renzo Thornton DO Active LEVOFLOXACIN 500 MG TABS 1 tab po qd LEVOFLOXACIN 37181415835 No Longer Active Renzo Thornton DO Active BUSPIRONE HCL 15 MG TABS 1 tab po TID BUSPIRONE HCL 60412081138 No Longer Active Renzo Thornton DO Active BENZTROPINE MESYLATE 1 MG TABS 1 tab po qd BENZTROPINE MESYLATE 17548360278 No Longer Active Renzo Thornton DO Active ATENOLOL 25 MG TABS 1 tab po qd ATENOLOL 35175674073 No Longer Active Renzo Thornton DO Active ESCITALOPRAM OXALATE 20 MG TABS 1 tab po qd ESCITALOPRAM OXALATE 89274532522 No Longer Active Renzo Thornton DO Active ADVAIR DISKUS 250-50 MCG/DOSE AEPB 1 puff BID FLUTICASONE-SALMETEROL 28706536463 No Longer Active Renzo Thornton DO Active PREDNISONE 20 MG TAB 2 tabs daily for 3 days, 1 tab daily for 3 days, 1/2 tab daily for 2 days PREDNISONE 66053362080 No Longer Active Vishal Hui MD Active CEFDINIR 300 MG CAPS by mouth twice a day CEFDINIR 95476023420 No Longer Active Vishal Hui MD Active LANSOPRAZOLE 30 MG CPDR 1 cap po qd LANSOPRAZOLE 99251258650 No Longer Active Vishal Hui MD Active BACLOFEN 20 MG TABS 1 tab po tid BACLOFEN 57480090469 No Longer Active Vishal Hui MD Active ADVAIR DISKUS 250-50 MCG/DOSE AEPB 1 puff BID ADVAIR DISKUS 250-50 MCG/DOSE AEPB FLUTICASONE-SALMETEROL Inactive ESCITALOPRAM OXALATE 20 MG TABS 1 tab po qd ESCITALOPRAM OXALATE 20 MG TABS 090992 ESCITALOPRAM OXALATE Inactive ATENOLOL 25 MG TABS 1 tab po qd ATENOLOL 25 MG TABS 594365 ATENOLOL Inactive BENZTROPINE MESYLATE 1 MG TABS 1 tab po qd BENZTROPINE MESYLATE 1 MG TABS 367698 BENZTROPINE MESYLATE Inactive BUSPIRONE HCL 15 MG TABS 1 tab po TID BUSPIRONE HCL 15 MG TABS 249557 BUSPIRONE HCL Inactive LEVOFLOXACIN 500 MG TABS 1 tab po qd LEVOFLOXACIN 500 MG TABS 583634 LEVOFLOXACIN Inactive PREDNISONE 20 MG TABS 1 tab po qd PREDNISONE 20 MG TABS 789056 PREDNISONE Inactive MIRALAX POWD 1 capfull once daily MIRALAX POWD 374240 POLYETHYLENE GLYCOL 3350 Inactive VERAPAMIL HCL ER 180 MG CR-TABS 1 tab po bid VERAPAMIL HCL ER 180 MG CR-TABS VERAPAMIL HCL Inactive LORATADINE 10 MG TABS 1 tab po qd LORATADINE 10 MG TABS 343891 LORATADINE Inactive LYRICA 50 MG CAPS 1 tab po TID LYRICA 50 MG CAPS PREGABALIN Inactive ZALEPLON 10 MG CAPS 1 cap po every other night ZALEPLON 10 MG CAPS 400053 ZALEPLON Inactive SAPHRIS 5 MG SUBL 1 tab po qd SAPHRIS 5 MG SUBL ASENAPINE MALEATE Inactive TRAZODONE HCL 50 MG TABS 1/2 tab po qd prn for anxiety TRAZODONE HCL 50 MG TABS 551018 TRAZODONE HCL Inactive LATUDA 20 MG TABS Take one by mouth daily LATUDA 20 MG TABS LURASIDONE HCL Inactive LISINOPRIL 20 MG TABS 1 tab po qd LISINOPRIL 20 MG TABS 632791 LISINOPRIL Inactive SAPHRIS 10 MG SUBL 1 [...] twice daily BACTRIM DS 800-160 MG TAB 643103 TRIMETHOPRIM-SULFAMETHOXAZOLE Inactive MULTIVITAMINS CAPS Take one by mouth daily MULTIVITAMINS CAPS MULTIPLE VITAMIN Inactive MELATONIN 3 MG CAPS 2 po q hs MELATONIN 3 MG CAPS 259181 MELATONIN Inactive KEFLEX 500 MG ORAL CAPS 1 cap QID by mouth KEFLEX 500 MG ORAL CAPS 069669 CEPHALEXIN Inactive CLINDAMYCIN HCL 150 MG CAPS 1 four times a day CLINDAMYCIN HCL 150 MG CAPS 19740326 CLINDAMYCIN HCL Inactive DIFLUCAN 150 MG TAB 1 tablet by mouth daily DIFLUCAN 150 MG TAB 078072 FLUCONAZOLE Inactive PROZAC 20 MG CAP Take one by mouth daily PROZAC 20 MG CAP 502284 FLUOXETINE HCL Inactive IBUPROFEN 600 MG TAB 1 po TID PRN IBUPROFEN 600 MG TAB 512791 IBUPROFEN Inactive VYVANSE 40 MG CAPS 1 daily, VYVANSE 40 MG CAPS LISDEXAMFETAMINE DIMESYLATE Inactive TRAZODONE HCL 100 MG TAB take 1 at bedtime TRAZODONE HCL 100 MG TAB 100530 TRAZODONE HCL Inactive AMITRIPTYLINE HCL 100 MG TAB one at hs AMITRIPTYLINE HCL 100 MG TAB 471754 AMITRIPTYLINE HCL Inactive AMLODIPINE BESYLATE 5 MG TABS 1 tablet by mouth daily AMLODIPINE BESYLATE 5 MG TABS 829060 AMLODIPINE BESYLATE Inactive LATUDA 80 MG TABS Take one by mouth daily LATUDA 80 MG TABS LURASIDONE HCL Inactive SAPHRIS 5 MG SUBL 1 po bid SAPHRIS 5 MG SUBL ASENAPINE MALEATE Inactive PREDNISONE 20 MG TAB 2 tabs daily for 4 days, 1 tab daily for 4 days, 1/2 tab daily for 4 days PREDNISONE 20 MG TAB 895703 PREDNISONE Inactive AMBIEN 5 MG ORAL TABS 1 tab at bedtime AMBIEN 5 MG ORAL TABS 586429 ZOLPIDEM TARTRATE Inactive PROZAC 20 MG ORAL CAPS 1 tab daily PROZAC 20 MG ORAL CAPS 647744 FLUOXETINE HCL Inactive ABILIFY 15 MG ORAL TABS 1 tab daily ABILIFY 15 MG ORAL TABS 197781 ARIPIPRAZOLE Inactive METOPROLOL TARTRATE 50 MG TAB 1 po bid METOPROLOL TARTRATE 50 MG TAB 111881 METOPROLOL TARTRATE Inactive TRAMADOL HCL 50 MG TABS 1-2 po TID PRN Pain TRAMADOL HCL 50 MG TABS 556874 TRAMADOL HCL Inactive PIROXICAM 20 MG CAPS 1 cap po qd PRN Pain PIROXICAM 20 MG CAPS 181539 PIROXICAM Inactive MINIPRESS 2 MG CAPS 4 cap po at night MINIPRESS 2 MG CAPS 461250 PRAZOSIN HCL Inactive MIRALAX PACK 1 po qd PRN Constipation MIRALAX PACK 065654 POLYETHYLENE GLYCOL 3350 Inactive METOPROLOL TARTRATE 25 MG ORAL TABS 1/2 tablet twice daily for heart rate and blood pressure METOPROLOL TARTRATE 25 MG ORAL TABS 171660 METOPROLOL TARTRATE Inactive VALIUM 5 MG TAB Take 1-2 tablets daily VALIUM 5 MG TAB 891999 DIAZEPAM Inactive FLAGYL 500 MG TAB 1 tablet by mouth bid FLAGYL 500 MG TAB 017139 METRONIDAZOLE Inactive DICLOFENAC POTASSIUM TABS Take 1 tablet twice a day (pt. is not sure of the dose.) DICLOFENAC POTASSIUM TABS DICLOFENAC POTASSIUM TABS Inactive ZITHROMAX Z-EARNEST 250 MG TABS 2 today and then 1 daily for 4 days ZITHROMAX Z-EARNEST 250 MG TABS 3825903 AZITHROMYCIN Inactive PREDNISONE 20 MG TABS 2 daily for 5 days then 1 daily for 5 days PREDNISONE 20 MG TABS 170472 PREDNISONE Inactive PROAIR HFA 108 (90 BASE) MCG/ACT AERS 2 puffs four times a day as needed 2015 PROAIR HFA 108 (90 BASE) MCG/ACT AERS ALBUTEROL SULFATE Inactive HYDROCODONE-ACETAMINOPHEN 5-325 MG TABS 1 to 2 four times a day as needed for pain use until can be seen by specialist HYDROCODONE- ACETAMINOPHEN 5-325 MG TABS 149263 HYDROCODONE-ACETAMINOPHEN Inactive TESSALON PERLES 100 MG CAP 1 to 2 tablets by mouth 3 times daily as needed for cough TESSALON PERLES 100 MG CAP 824931 BENZONATATE Inactive CHANTIX STARTING MONTH EARNEST 0.5 [...] Pain 2015 DICLOFENAC SODIUM 50 MG TBEC 375572 DICLOFENAC SODIUM Inactive TOPAMAX 50 MG ORAL TABS 1 tab twice daily TOPAMAX 50 MG ORAL TABS 606737 TOPIRAMATE Inactive VIIBRYD 10 MG ORAL TABS Take 1 tablet once a day VIIBRYD 10 MG ORAL TABS VILAZODONE HCL Inactive LEVOFLOXACIN 500 MG ORAL TABS po daily LEVOFLOXACIN 500 MG ORAL TABS 360594 LEVOFLOXACIN Inactive METHYLPREDNISOLONE 4 MG ORAL TABS po daily METHYLPREDNISOLONE 4 MG ORAL TABS 730426 METHYLPREDNISOLONE Inactive OXYCODONE HCL ER 10 MG ORAL T12A 1/2 tab by mouth every 4 hours prn OXYCODONE HCL ER 10 MG ORAL T12A OXYCODONE HCL Inactive FLAGYL 500 MG TAB 1 tablet by mouth bid FLAGYL 500 MG TAB 468960 METRONIDAZOLE Inactive MONISTAT 7 COMBO PACK WOODROW 100 & 2 MG-% (9GM) VAG KIT 1 applicatorful per vagina q pm x 7 MONISTAT 7 COMBO PACK WOODROW 100 & 2 MG-% (9GM) VAG KIT MICONAZOLE NITRATE Inactive CEFDINIR 300 MG CAPS by mouth twice a day CEFDINIR 300 MG CAPS 876005 CEFDINIR Inactive PREDNISONE 20 MG TAB 2 tabs daily for 3 days, 1 tab daily for 3 days, 1/2 tab daily for 2 days PREDNISONE 20 MG TAB 169442 PREDNISONE Inactive BACTRIM DS 800-160 MG TABS 1 po BID x 7 days BACTRIM DS 800-160 MG TABS 19820521 SULFAMETHOXAZOLE-TRIMETHOPRIM Inactive DIFLUCAN 150 MG TABS 1 pill every other day x 2 doses DIFLUCAN 150 MG TABS 317467 FLUCONAZOLE Inactive BACTRIM DS 800-160 MG TABS 1 pill by mouth twice daily BACTRIM DS 800-160 MG TABS 615043 SULFAMETHOXAZOLE-TRIMETHOPRIM Inactive KEFLEX 500 MG CAP 1 po TID x 10 days KEFLEX 500 MG CAP 670954 CEPHALEXIN Inactive Advance Directives Directive Description Start [...] pressure, diastolic - 8462-4 83 mm[Hg] BP mncally blood pressure, systolic - 8480-6 125 mm[Hg] [...] % 11.6-14.8 platelet count 394 10^3/MM^3 10*3/mm3 720-563 5335/01/11 leukocyte count, blood 13.8 10^3/MM^3 10*3/mm3 4.6-10.2 [...] Panel - Chemistry sodium, serum 139 mmol/L 583-964 1069/12/03 carbon dioxide, venous blood 28.5 mmol/L 21.0-32.0 [...] 5.5 % 4.3-6.0 cholesterol, serum 159 mg/dL 755-697 0257/12/03 triglyceride, serum, fasting 118 mg/dL 30-200 HDL [...] 362 10^3/MM^3 10*3/mm3 142-424 Lab Report: Chlamydia/GC [id number] - Lab chlamydia DNA probe NOT DETECTED NOT DETECTED Lab Report: Chlamydia/GC [id number] - Microbiology Neisseria gonorrhoeae DNA probe NOT DETECTED NOT DETECTED Lab Report: Comp. Metabolic Panel - Chemistry sodium, serum 140 mmol/L 094-227 8571/08/08 carbon dioxide, venous blood 33.7 mmol/L 21.0-32.0 potassium, serum 5.0 mmol/L 3.5-5.2 chloride, serum 103 mmol/L 98-107 blood glucose 80 mg/dL 65-110 urea nitrogen, blood 13 mg/dL 7-18 creatinine, serum 0.88 mg/dL 0.55-1.30 alanine aminotransferase (SGPT), serum 54 U/L 12-78 aspartate aminotransferase (SGOT), serum 29 U/L 15-37 calcium, serum 9.7 mg/dL 8.5-10.1 bilirubin, serum, total 0.30 mg/dL 0.00-1.00 sodium, serum 139 mmol/L 737-349 9828/12/22 carbon dioxide, venous blood 26.8 mmol/L 21.0-32.0 potassium, serum 4.2 mmol/L 3.5-5.2 chloride, serum 103 mmol/L 98-107 blood glucose 115 mg/dL 65-110 urea nitrogen, blood 20 mg/dL 7-18 creatinine, serum 0.90 mg/dL 0.55-1.30 alanine aminotransferase (SGPT), serum 38 U/L - aspartate aminotransferase (SGOT), serum 19 U/L 15-37 calcium, serum 8.6 mg/dL 8.5-10.1 bilirubin, serum, total 0.30 mg/dL 0.00-1.00 sodium, serum 139 mmol/L 856-549 0804/01/11 carbon dioxide, venous blood 26.6 mmol/L 21.0-32.0 potassium, serum 4.1 mmol/L 3.5-5.2 chloride, serum 100 mmol/L 98-107 blood glucose 86 mg/dL 65-110 urea nitrogen, blood 16 mg/dL 7-18 creatinine, serum 1.00 mg/dL 0.55-1.30 alanine aminotransferase (SGPT), serum 48 U/L aspartate aminotransferase (SGOT), serum 17 U/L 15-37 calcium, serum 9.1 mg/dL 8.5-10.1 bilirubin, serum, total 0.40 mg/dL 0.00-1.00 sodium, serum 142 mmol/L 178-628 4121/06/08 carbon dioxide, venous blood 27.6 mmol/L 21.0-32.0 [...] Rate - Chemistry sodium, serum 139 mmol/L 207-589 7926/12/11 carbon dioxide, venous blood 25.4 mmol/L 21.0-32.0 [...] mg/dL Encounters Code Encounter Date Provider Facility CPT-65863 Level 3 Est. Patient 15:07:06 PICKLER HELPER Neeraj Collins MD [facility] CPT-21437 Level 4 Est. Patient 14:45:00 PICKLER HELPER Ahmet Carbajal MD [facility] CPT-99589 Level 3 Est. Patient 13:59:59 CDT Luigi Martínez APRN [facility] CPT-04750 Level 3 Est. Patient 18:18:53 CDT Neeraj Collins MD [facility] CPT-71442 Level 3 Est. Patient 15:50:44 CDT Vishal Hui MD [facility] CPT-96953 Level 3 Est. Patient 11:36:17 CDT Ahmet Carbajal MD [facility] CPT-83901 Level 3 Est. Patient 13:29:16 CDT Vishal Hui MD [facility] CPT-54876 Level 3 Est. Patient 14:27:52 CDT Neeraj Collins MD [facility] CPT-01522 Level 3 Est. Patient 08:56:03 CDT Luigi Martínez [facility] CPT-39547 Level 4 Est. Patient 12:11:48 CDT Fabiola Johnson [facility] CPT-93384 Level 3 New Patient 16:53:37 CDT Albert Caldera MD [facility] CPT-43855 Level 3 Est. Patient 11:25:49 CDT Renzo Thornton DO [facility] CPT-54669 Level 3 Est. Patient 15:22:01 CDT Ahmet Carbajal MD [facility] CPT-08075 Level 4 Est. Patient 09:00:51 PICKLER HELPER Vishal Hui MD [facility] CPT-19205 Level 3 Est. Patient 11:37:33 PICKLER HELPER Vishal Hui MD [facility] CPT-60471 Level 3 Est. Patient 08:41:09 PICKLER HELPER Vishal Hui MD [facility] CPT-57686 Level 4 Est. Patient 10:19:35 PICKLER HELPER Vishal Hui MD [facility] CPT-67065 Level 3 Est. Patient 13:35:45 CDT Vishal Hui MD [facility] CPT-02895 Level 4 Est. Patient 10:08:37 CDT Vishal Hui MD [facility] CPT-42555 Level 3 Est. Patient 11:22:10 CDT Vishal Hui MD [facility] CPT-96013 Level 3 Est. Patient 11:03:32 CDT Sahara Rodriguez MD PhD [facility] CPT-67393 Level 3 Est. Patient 09:41:35 CDT Vishal Hui MD [facility] CPT-66625 Level 3 Est. Patient 12:00:41 CDT Neeraj Collins MD [facility]-98087 Level 3 Est. Patient 09:16:24 CDT Vishal Hui MD [facility] CPT-79663 Level 4 Est. Patient 13:59:09 CDT Neeraj Collins MD [facility] CPT-88827 Level 3 Est. Patient 15:19:43 CDT Renzo Thornton [facility] CPT-80972 Level 3 Est. Patient 18:10:26 CDT Sahara Rodriguez MD PhD [facility] CPT-82123 Level 3 Est. Patient 14:49:50 CDT Vishal Hui MD [facility]-25113 Level 4 Est. Patient 18:41:46 CDT Neeraj Collins MD [facility]-10549 Level 4 Est. Patient 09:18:38 PICKLER HELPER Vishal Hui MD [facility] CPT-37326 Level 3 Est. Patient 14:43:55 PICKLER HELPER Vishal Hui MD [facility] CPT-39355 Level 3 Est. Patient 15:26:33 PICKLER HELPER Sahara Rodriguez MD [facility]-54343 Level 3 Est. Patient 10:32:14 PICKLER HELPER Vishal Hui MD [facility] CPT-74756 Level 3 Est. Patient 15:12:52 PICKLER HELPER Vishal Hui MD [facility] CPT-87315 Level 4 Est. Patient 09:19:27 CDT Vishal Hui MD [facility] CPT-33884 Level 3 Est. Patient 15:53:00 CDT Renzo Thornton [facility]-06787 Level 3 Est. Patient 15:50:30 CDT Renzo Thornton [facility] CPT-66042 Level 3 Est. Patient 16:55:24 CDKimberly Hui MD [facility] Procedures Code Procedure Name Date Entry Date Standard Description CPT-08547 Abx/Therapy Injection 17:34:30 PICKLER HELPER CPT-27174 Nexplanon Removal with Reinsertion 14:09:32 CDT CPT-J7307 Nexplanon (Implant) 14:09:32 CDT CPT-OV Office Visit 14:09:32 CDT CPT-19644 UA w micro - LAB USE ONLY 16:21:13 CDT CPT-61901 Wet Mount - LAB USE ONLY 16:21:13 CDT CPT-33630 First Vx - Ix admin for Medicare patients 14:37:47 CDT CPT-56666 Fluzone Preservative Free Intramuscular Suspension 14:37 :47 CDT CPT-51495 Abx/Therapy Injection 13:54:22 CDT CPT-40335 Abx/Therapy Injection 08:47:09 CDT CPT-63889 Abx/Therapy Injection 13:29:56 CDT CPT-19273 Abx/Therapy Injection 08:36:16 CDT CPT-61963 Wet Mount - LAB USE ONLY 17:44:58 CDT CPT-19133 UA w micro - LAB USE ONLY 17:44:58 CDT CPT-88916 CMP - LAB USE ONLY 17:44:58 CDT CPT-15914 Venipuncture Draw Fee 17:44:58 CDT CPT-59099 Cervical Min 4V - XRAY USE ONLY 09:01:40 CDT CPT-06155 Chest 2V Frontal and Lat - XRAY USE ONLY 11:06:31 CDT CPT-51541 EKG Trac and Interp - XRAY USE ONLY 11:31:43 CDT 08/26 CPT-J3420 Vitamin B12 1000mcg (Cyanocobalamin) 08:10:26 [employer] 04/12 CPT-45835 Abx/Therapy Injection 08:10:26 [employer] HEL[employer] CPT-G0438 Initial Annual Wellness Exam 19:01:01 [employer] CPT-J3420 Vitamin B12 1000mcg (Cyanocobalamin) 16:57:46 CDT 08/14 CPT-73714 Recombivax HB Injection Suspension 5 MCG/0.5ML 08:37:50 [employer] HEL[employer] CPT-10599 Immunization Single Admin 08:37:50 [employer]LER HELPER CPT-J3420 Vitamin B12 1000mcg (Cyanocobalamin) 08:32:16 [employer]ER HELPER 03/11 CPT-00398 Abx/Therapy Injection 08:32:16 [employer]LER HELPER CPT-43210 Chest 2V Frontal and Lat 11:46:38 [employer]ER HELPER CPT-50622 Venipuncture Draw Fee 09:12:45 [employer]LER HELPER CPT-J3420 Vitamin B12 1000mcg (Cyanocobalamin) 08:50:15 [employer]ER HELPER 02/08 CPT-07603 Abx/Therapy Injection 08:50:15 [employer]LER HELPER CPT-Cryo Cryotherapy 10:19:35 P[employer]LER HELPER CPT-000 Give Appropriate Flu Vaccine 09:22:16 CDT CPT-J3420 Vitamin B12 1000mcg (Cyanocobalamin) 19:08:57 CDT 01/11 CPT-15060 Abx/Therapy Injection 19:08:57 CDT CPT-J3420 Vitamin B12 1000mcg (Cyanocobalamin) 08:19:08 CDT 12/11 CPT-98305 Abx/Therapy Injection 08:19:08 CDT CPT-J3420 Vitamin B12 1000mcg (Cyanocobalamin) 14:48:00 CDT 11/09 CPT-32055 Abx/Therapy Injection 14:47:59 CDT CPT-J3420 Vitamin B12 1000mcg (Cyanocobalamin) 08:34:04 CDT 10/09 CPT-24433 Abx/Therapy Injection 08:34:04 CDT CPT-J3420 Vitamin B12 1000mcg (Cyanocobalamin) 09:18:52 CDT 09/11 CPT-10778 Abx/Therapy Injection 09:18:52 CDT CPT-J3420 Vitamin B12 1000mcg (Cyanocobalamin) 08:35:44 CDT 09/04 CPT-18554 Abx/Therapy Injection 08:35:44 CDT CPT-25355 Immunization Single Admin 11:07:16 CDT CPT-61368 Hepatitis B adult IM 11:07:16 CDT CPT-J3420 Vitamin B12 1000mcg (Cyanocobalamin) 11:00:49 CDT 08/28 CPT-J1040 Depo Medrol 80 mg (Methyl Prednisolone Acetate) 11:00: 49 CDT CPT-08625 Abx/Therapy Injection 11:00:49 CDT CPT-J1040 Depo Medrol 80 mg (Methyl Prednisolone Acetate) 09:16: 23 CDT CPT-J3420 Vitamin B12 1000mcg (Cyanocobalamin) 08:27:05 CDT 08/20 CPT-45412 Abx/Therapy Injection 08:27:05 CDT CPT-31022 Recombivax HB Injection Suspension 5 MCG/0.5ML 10:00:41 CDT CPT-50613 Administration single or combination vaccine inc oral 10 :00:41 CDT CPT-11005 Sono transvag pelvis non OB uterus ovaries cervix 16:36: 57 CDT CPT-49748 LS spine comp w obliq 09:50:55 [employer] HEL[employer] CPT-21089 Abd compl w upright 09:50:55 [employer]ER HELPER CPT-J1100 Decadron 4mg (Dexamethasone) 15:51:24 [employer]ER HELPER CPT-J1030 Depo Medrol 40 mg (Methyl Prednisolone Acetate) 15:51: 24 [employer]ER HELPER CPT-15707 Abx/Therapy Injection 15:51:24 [employer]LER HELPER CPT-J1100 Decadron 4mg (Dexamethasone) 15:26:33 [employer]ER HELPER CPT-J1030 Depo Medrol 40 mg (Methyl Prednisolone Acetate) 15:26: 33 [employer]ER HEL[employer] CPT-98044 Sono retroperitoneal complete kidneys and bladder 17:15: 30 CDT CPT-21629 Abd compl w upright 16:09:25 CDT CPT-J1100 Decadron 8mg (Dexamethasone) 17:07:57 CDT CPT-22637 Abx/Therapy Injection 17:07:57 CDT CPT-J1100 Decadron 8mg (Dexamethasone) 16:55:24 CDT CPT-97328 Chest 2V Frontal and Lat 16:32:44 CDT
--- OUTSIDE RECORDS SUMMARY | 2016-11-04 15:26 | XMS REPORT | Clinical Summary ---
Author Author Admin, FLOR Organization [employer] Address Unknown Phone Unavailable Allergies, Adverse Reactions, [...] sites Morbid obesity 278.01 Active Juliet Kimbrough ITALIAN LECTURER Morbid obesity 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 Active Juliet [...] breath Nocturnal hypoxia 799.02 Active Fabiola Johnson ITALIAN LECTURER Hypoxemia Neck pain 723.1 Resolved Vishal Hui [...] fibula Vaginal discharge 623.5 Active Luigi Martínez ITALIAN LECTURER Leukorrhea, not specified as infective DYSURIA 788.1 [...] Active Ahmet Carbajal MD Generalized anxiety disorder [place] well woman exam V72.31 Active Suzan Boo ITALIAN LECTURER Routine gynecological examination Bronchitis, acute with mild bronchospasm 466.0 Active Suzan Boo ITALIAN LECTURER Acute bronchitis Fibrocystic breast changes 610.1 Active Suzan Boo APRN Diffuse cystic 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 Suzan Boo ITALIAN LECTURER Other specified conditions influencing health status Anxiety [...] Physical examination ICD-V70.0 Inactive Vishal Hui MD 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 Inactive Vishal Hui MD Vaginitis ICD-616.10 Inactive Vishal Hui MD Vaginitis, candidal ICD-112.1 Inactive Vishal Hui MD [...] Caldera MD Elevated blood glucose ICD-790.29 Inactive Vishla Hui MD Gait unsteady ICD-781.2 Inactive Albert Caldera MD Lipoma ICD-214.9 Inactive Albert Caldera MD Abdominal pain, RUQ ICD-789.01 Inactive Albert Caldera MD Fatigue ICD-780.79 Inactive Vishal Hui MD 2014 Chest pain, acute ICD-786.50 Inactive Albert Caldera [...] SOLN 1 drop PRN eye spasms TROPICAMIDE 66086604130 Active Samantha Stephan RMA Active RISPERDAL 4 MG ORAL TABS 1 tab at bedtime RISPERIDONE 65606496304 Active Samantha Stephan RMA Active LEVAQUIN 500 MG TABS 1 daily for infection LEVOFLOXACIN 49419853036 Active Suzan Boo APRN Active TESSALON PERLES 100 MG CAPS 1 three times a day as needed for cough BENZONATATE 28587964206 Active Suzan Boo APRN Active ZOFRAN 4 MG TABS 1 po q6hr PRN Nausea ONDANSETRON HCL No Longer Active Suzan Boo APRN Active FLUTICASONE PROPIONATE 50 MCG/ACT SUSP 2 sprays each nostril daily before bed. FLUTICASONE PROPIONATE 93010287461 No Longer Active Suzan Boo APRN Active ASPIRIN 325 MG ORAL TABS 1 tab q.d ASPIRIN 89322967064 No Longer Active Suzan Boo APRN Active HALOPERIDOL 10 MG ORAL TABS 1 tab q.d HALOPERIDOL 94623914497 No Longer Active Suzan Boo APRN Active GUAIFENESIN-CODEINE 100-10 MG/5ML SYRP 5ml every 4 to 6 hours as needed for cough GUAIFENESIN-CODEINE 48997564470 No Longer Active Suzan Boo APRN Active ZITHROMAX Z-EARNEST 250 MG TABS 2 today and then 1 daily for 4 days AZITHROMYCIN 71844775767 No Longer Active Suzan Boo APRN Active PREDNISONE 10 MG TABS 2 daily for 5 days then 1 daily for 5 days PREDNISONE 35571160475 Active Suzan Boo APRN Active CLONAZEPAM 1 MG ORAL TABS 1 twice a day and an additional 1 tablet every other day as needed for pseudoseizures or anxiety CLONAZEPAM 53072577113 Active Ahmet Carbajal MD Active HYDROCODONE-ACETAMINOPHEN 5-325 MG ORAL TABS 1 tab two times a day HYDROCODONE-ACETAMINOPHEN 86720677850 No Longer Active Ahmet Carbajal MD Active LAMICTAL 100 MG ORAL TABS 1 tab 2 times qd. LAMOTRIGINE 94252407464 Active Ahmet Carbajal MD Active PREDNISONE 20 MG TABS 2 daily for 5 days then 1 daily for 5 days PREDNISONE 14667131083 No Longer Active Ahmet Carbajal MD Active FLUTICASONE PROPIONATE 50 MCG/ACT SUSP 1 to 2 sprays each nostril daily for allergies FLUTICASONE PROPIONATE 82179587022 Active Tila Valenzuela Active BENADRYL 25 MG CAP 4 po at bedtime for insomnia DIPHENHYDRAMINE HCL 32092359698 No Longer Active Ahmet Carbajal MD Active ADVAIR DISKUS 250-50 MCG/DOSE INH AEPB 1 puff twice a day for asthma FLUTICASONE-SALMETEROL 96746851265 No Longer Active Ahmet Carbajal MD Active KLONOPIN 1 MG ORAL TABS 1 tab po TID CLONAZEPAM 30686845861 No Longer Active Ahmet Carbajal MD Active ABILIFY MAINTENA 400 MG IM SUSR 400mg injection every 26 days ARIPIPRAZOLE 47352779595 No Longer Active Ahmet Carbajal MD Active TRAMADOL HCL 50 MG TABS 1/2-1 tab TID PRN TRAMADOL HCL 87275289904 No Longer Active Ahmet Carbajal MD Active BACTRIM DS 800-160 MG TABS 1 twice a day SULFAMETHOXAZOLE- TRIMETHOPRIM 68064454091 No Longer Active Ahmet Carbajal MD Active PROAIR HFA 108 (90 BASE) MCG/ACT AERS 2 puffs four times a day as needed 2015 ALBUTEROL SULFATE 81412629651 Active Ahmet Carbajal MD Active EQ NICOTINE 21 MG/24HR TRANS PT24 Apply daily to stop smoking NICOTINE 28755598948 Active Ahmet Carbajal MD Active MONISTAT 7 COMBO PACK WOODROW 100 & 2 MG-% (9GM) VAG KIT 1 applicatorful per vagina q pm x 7 MICONAZOLE NITRATE 65715481395 No Longer Active Ahmet Carbajal MD Active FLAGYL 500 MG TAB 1 tablet by mouth bid METRONIDAZOLE 59458756658 No Longer Active Ahmet Carbajal MD Active OXYCODONE HCL ER 10 MG ORAL T12A 1/2 tab by mouth every 4 hours prn OXYCODONE HCL 36502323890 No Longer Active Ahmet Carbajal MD Active METHYLPREDNISOLONE 4 MG ORAL TABS po daily METHYLPREDNISOLONE 14686468740 No Longer Active Ahmet Carbajal MD Active LEVOFLOXACIN 500 MG ORAL TABS po daily LEVOFLOXACIN 23011512905 No Longer Active Ahmet Carbajal MD Active VIIBRYD 10 MG ORAL TABS Take 1 tablet once a day VILAZODONE HCL 23696918513 No Longer Active Ahmet Carbajal MD Active TOPAMAX 50 MG ORAL TABS 1 tab twice daily TOPIRAMATE 14451378092 No Longer Active Ahmet Carbajal MD Active DICLOFENAC SODIUM 50 MG TBEC 1 tablet by mouth four times daily PRN Pain 2015 DICLOFENAC SODIUM 39389334804 No Longer Active Ahmet Carbajal MD Active ADZENYS XR-ODT 6.3 MG ORAL TBED 1 tab po daily for ADHD AMPHETAMINE 33121169636 No Longer Active Ahmet Carbajal MD Active CHANTIX 1 MG TABS 1 twice a day to help quit smoking VARENICLINE TARTRATE 29831780213 No Longer Active Dipika Burgos MD Active CHANTIX STARTING MONTH EARNEST 0.5 MG X 11 & 1 MG X 42 TABS take as directed 2015 VARENICLINE TARTRATE 12292646311 No Longer Active Dipika Burgos MD Active TESSALON PERLES 100 MG CAP 1 to 2 tablets by mouth 3 times daily as needed for cough BENZONATATE 72838567313 No Longer Active Luigi Martínez APRN Active IMITREX 50 MG ORAL TABS 0.5 po x 1 PRN Headache. May repeat dose x 1 in 2 hours if needed SUMATRIPTAN SUCCINATE 42053180457 Active Ahmet Carbajal MD Active HYDROCODONE-ACETAMINOPHEN 5-325 MG TABS 1 to 2 four times a day as needed for pain use until can be seen by specialist HYDROCODONE- ACETAMINOPHEN 70358892556 No Longer Active Vishal Hui MD Active PROAIR HFA 108 (90 BASE) MCG/ACT AERS 2 puffs four times a day as needed 2015 ALBUTEROL SULFATE 49533805081 No Longer Active Vishal Hui MD Active PREDNISONE 20 MG TABS 2 daily for 5 days then 1 daily for 5 days PREDNISONE 47560021033 No Longer Active Vishal Hui MD Active ZITHROMAX Z-EARNEST 250 MG TABS 2 today and then 1 daily for 4 days AZITHROMYCIN 02015349338 No Longer Active Vishal Hui MD Active DICLOFENAC POTASSIUM TABS Take 1 tablet twice a day (pt. is not sure of the dose.) DICLOFENAC POTASSIUM TABS 59412050153 No Longer Active Vishal Hui MD Active VERAPAMIL HCL ER 120 MG ORAL CR-TABS Take 1 tablet by mouth twice a day. VERAPAMIL HCL 83839392232 Active Vishal Hui MD Active FLAGYL 500 MG TAB 1 tablet by mouth bid METRONIDAZOLE 55121428151 No Longer Active Vishal Hui MD Active VALIUM 5 MG TAB Take 1-2 tablets daily DIAZEPAM 73582773380 No Longer Active Fabiola Johnson APRN Active METOPROLOL TARTRATE 25 MG ORAL TABS 1/2 tablet twice daily for heart rate and blood pressure METOPROLOL TARTRATE 93883081243 No Longer Active Fabiola Johnson APRN Active MIRALAX ORAL POWD 17GMS DAILY IN WATER POLYETHYLENE GLYCOL 3350 01291933461 Active TAMARA Casey Active MIRALAX PACK 1 po qd PRN Constipation POLYETHYLENE GLYCOL 3350 87215482001 No Longer Active Ahmet Carbajal MD Active MINIPRESS 2 MG CAPS 4 cap po at night PRAZOSIN HCL 77038424319 No Longer Active Ahmet Carbajal MD Active PIROXICAM 20 MG CAPS 1 cap po qd PRN Pain PIROXICAM 08575090352 No Longer Active Ahmet Carbajal MD Active TRAMADOL HCL 50 MG TABS 1-2 po TID PRN Pain TRAMADOL HCL 56255520757 No Longer Active Ahmet Carbajal MD Active METOPROLOL TARTRATE 50 MG TAB 1 po bid METOPROLOL TARTRATE 74305433705 No Longer Active Ahmet Carbajal MD Active ABILIFY 15 MG ORAL TABS 1 tab daily ARIPIPRAZOLE 80513427875 No Longer Active Ahmet Carbajal MD Active PROZAC 20 MG ORAL CAPS 1 tab daily FLUOXETINE HCL 11660416303 No Longer Active Ahmet Carbajal MD Active AMBIEN 5 MG ORAL TABS 1 tab at bedtime ZOLPIDEM TARTRATE 40886892758 No Longer Active Ahmet Carbajal MD Active PREDNISONE 20 MG TAB 2 tabs daily for 4 days, 1 tab daily for 4 days, 1/2 tab daily for 4 days PREDNISONE 11223901423 No Longer Active Ahmet Carbajal MD Active KEFLEX 500 MG CAP 1 po TID x 10 days CEPHALEXIN 89832674036 No Longer Active Vishal Hui MD Active SAPHRIS 5 MG SUBL 1 po bid ASENAPINE MALEATE 28456377413 No Longer Active Jillina Frazell ITALIAN LECTURER Active LATUDA 80 MG TABS Take one by mouth daily LURASIDONE HCL 65200111774 No Longer Active Jillina Frazell ITALIAN LECTURER Active AMLODIPINE BESYLATE 5 MG TABS 1 tablet by mouth daily AMLODIPINE BESYLATE 62502154124 No Longer Active Jillina Frazell ITALIAN LECTURER Active AMITRIPTYLINE HCL 100 MG TAB one at hs AMITRIPTYLINE HCL 21496778884 No Longer Active Vishal Hui MD Active TRAZODONE HCL 100 MG TAB take 1 at bedtime TRAZODONE HCL 70042999679 No Longer Active Vishal Hui MD Active VYVANSE 40 MG CAPS 1 daily, LISDEXAMFETAMINE DIMESYLATE 49193492313 No Longer Active Vishal Hui MD Active IBUPROFEN 600 MG TAB 1 po TID PRN IBUPROFEN 01748245848 No Longer Active Vishal Hui MD Active PROZAC 20 MG CAP Take one by mouth daily FLUOXETINE HCL 15127586179 No Longer Active Vishal Hui MD Active BACTRIM DS 800-160 MG TABS 1 pill by mouth twice daily SULFAMETHOXAZOLE-TRIMETHOPRIM 35727313593 No Longer Active Sahara Rodriguez MD PhD Active DIFLUCAN 150 MG TAB 1 tablet by mouth daily FLUCONAZOLE 95624015803 No Longer Active Vishal Hui MD Active TIZANIDINE HCL 4 MG TABS 1 po q6hr PRN Muscle Spasm/Back Pain TIZANIDINE HCL 10069416048 Active Vishal Hui MD Active CLINDAMYCIN HCL 150 MG CAPS 1 four times a day CLINDAMYCIN HCL 05843709253 No Longer Active Neeraj Collins MD Active KEFLEX 500 MG ORAL CAPS 1 cap QID by mouth CEPHALEXIN 91537609011 No Longer Active Neeraj Collins MD Active DIFLUCAN 150 MG TABS 1 pill every other day x 2 doses FLUCONAZOLE 13248144901 No Longer Active Sahara Rodriguez MD PhD Active MELATONIN 3 MG CAPS 2 po q hs MELATONIN 92412557138 No Longer Active Sahara Rodriguez MD PhD Active MULTIVITAMINS CAPS Take one by mouth daily MULTIPLE VITAMIN 64609275146 No Longer Active Sahara Rodriguez MD PhD Active BACTRIM DS 800-160 MG TAB 1 tab by mouth twice daily TRIMETHOPRIM-SULFAMETHOXAZOLE 53028741666 No Longer Active Sahara Rodriguez MD PhD Active [facility] PROBIOTIC ORAL CHEW 2 daily po PROBIOTIC PRODUCT 94801350001 No Longer Active Sahara Rodriguez MD PhD Active BACTRIM DS 800-160 MG TABS 1 po BID x 7 days SULFAMETHOXAZOLE-TRIMETHOPRIM 62786902949 No Longer Active Vishal Hui MD Active CHANTIX STARTING MONTH EARNEST 0.5 MG X 11 & 1 MG X 42 TABS 0.5mg daily for 3 days , then 0.5mg BID for 4 days, then 1mg BID VARENICLINE TARTRATE 96929407580 No Longer Active TAMARA Gray Active VERAPAMIL HCL CR 120 MG TAB CR 1 po bid VERAPAMIL HCL 66630606504 No Longer Active Vishal Hui MD Active METOPROLOL SUCCINATE 50 MG TB24 1 tablet by mouth daily METOPROLOL SUCCINATE 07698378513 No Longer Active Vishal Hui MD Active SAPHRIS 10 MG SUBL 1 tab po bid ASENAPINE MALEATE 27164867220 No Longer Active Vishal Hui MD Active LISINOPRIL 20 MG TABS 1 tab po qd LISINOPRIL 07672711493 No Longer Active Vishal Hui MD Active LATUDA 20 MG TABS Take one by mouth daily LURASIDONE HCL 98724534463 No Longer Active Vishal Hui MD Active TRAZODONE HCL 50 MG TABS 1/2 tab po qd prn for anxiety TRAZODONE HCL 50492545491 No Longer Active Vishal Hui MD Active OMEPRAZOLE 20 MG TBEC 1 po q a.m. 30min prior to first food intake OMEPRAZOLE 74269264715 Active Vishal Hui MD Active RANITIDINE HCL 150 MG CAPS 1 twice a day RANITIDINE HCL 11832372135 Active Luigi Martínez APRN Active LINZESS 290 MCG CAPS Take one by mouth daily LINACLOTIDE 41697081955 No Longer Active Vishal Hui MD Active SAPHRIS 5 MG SUBL 1 tab po qd ASENAPINE MALEATE 62850599258 No Longer Active Vishal Hui MD Active ZALEPLON 10 MG CAPS 1 cap po every other night ZALEPLON 35238815926 No Longer Active Vishal Hui MD Active LYRICA 50 MG CAPS 1 tab po TID PREGABALIN 71290909791 No Longer Active Vishal Hui MD Active LORATADINE 10 MG TABS 1 tab po qd LORATADINE 90233762578 No Longer Active Vishal Hui MD Active VERAPAMIL HCL ER 180 MG CR-TABS 1 tab po bid VERAPAMIL HCL 22148853385 No Longer Active Vishal Hui MD Active MIRALAX POWD 1 capfull once daily POLYETHYLENE GLYCOL 3350 55806957999 No Longer Active Vishal Hui MD Active PREDNISONE 20 MG TABS 1 tab po qd PREDNISONE 12955190102 No Longer Active Renzo Thornton DO Active LEVOFLOXACIN 500 MG TABS 1 tab po qd LEVOFLOXACIN 03589098973 No Longer Active Renzo Thornton DO Active BUSPIRONE HCL 15 MG TABS 1 tab po TID BUSPIRONE HCL 20960029271 No Longer Active Renzo Thornton DO Active BENZTROPINE MESYLATE 1 MG TABS 1 tab po qd BENZTROPINE MESYLATE 42985182473 No Longer Active Renzo Thornton DO Active ATENOLOL 25 MG TABS 1 tab po qd ATENOLOL 76998337342 No Longer Active Renzo Thornton DO Active ESCITALOPRAM OXALATE 20 MG TABS 1 tab po qd ESCITALOPRAM OXALATE 78501776736 No Longer Active Renzo Thornton DO Active ADVAIR DISKUS 250-50 MCG/DOSE AEPB 1 puff BID FLUTICASONE-SALMETEROL 92710960846 No Longer Active Renzo Thornton DO Active PREDNISONE 20 MG TAB 2 tabs daily for 3 days, 1 tab daily for 3 days, 1/2 tab daily for 2 days PREDNISONE 15891829054 No Longer Active Vishal Hui MD Active CEFDINIR 300 MG CAPS by mouth twice a day CEFDINIR 22851510433 No Longer Active Vishal Hui MD Active LANSOPRAZOLE 30 MG CPDR 1 cap po qd LANSOPRAZOLE 10869362462 No Longer Active Vishal Hui MD Active BACLOFEN 20 MG TABS 1 tab po tid BACLOFEN 56369521097 No Longer Active Vishal Hui MD Active ADVAIR DISKUS 250-50 MCG/DOSE AEPB 1 puff BID ADVAIR DISKUS 250-50 MCG/DOSE AEPB FLUTICASONE-SALMETEROL Inactive ESCITALOPRAM OXALATE 20 MG TABS 1 tab po qd ESCITALOPRAM OXALATE 20 MG TABS 121611 ESCITALOPRAM OXALATE Inactive ATENOLOL 25 MG TABS 1 tab po qd ATENOLOL 25 MG TABS 750404 ATENOLOL Inactive BENZTROPINE MESYLATE 1 MG TABS 1 tab po qd BENZTROPINE MESYLATE 1 MG TABS 027455 BENZTROPINE MESYLATE Inactive BUSPIRONE HCL 15 MG TABS 1 tab po TID BUSPIRONE HCL 15 MG TABS 423965 BUSPIRONE HCL Inactive LEVOFLOXACIN 500 MG TABS 1 tab po qd LEVOFLOXACIN 500 MG TABS 850593 LEVOFLOXACIN Inactive PREDNISONE 20 MG TABS 1 tab po qd PREDNISONE 20 MG TABS 968248 PREDNISONE Inactive MIRALAX POWD 1 capfull once daily MIRALAX POWD 611936 POLYETHYLENE GLYCOL 3350 Inactive VERAPAMIL HCL ER 180 MG CR-TABS 1 tab po bid VERAPAMIL HCL ER 180 MG CR-TABS VERAPAMIL HCL Inactive LORATADINE 10 MG TABS 1 tab po qd LORATADINE 10 MG TABS 677412 LORATADINE Inactive LYRICA 50 MG CAPS 1 tab po TID LYRICA 50 MG CAPS PREGABALIN Inactive ZALEPLON 10 MG CAPS 1 cap po every other night ZALEPLON 10 MG CAPS 586761 ZALEPLON Inactive SAPHRIS 5 MG SUBL 1 tab po qd SAPHRIS 5 MG SUBL ASENAPINE MALEATE Inactive TRAZODONE HCL 50 MG TABS 1/2 tab po qd prn for anxiety TRAZODONE HCL 50 MG TABS 723452 TRAZODONE HCL Inactive LATUDA 20 MG TABS Take one by mouth daily LATUDA 20 MG TABS LURASIDONE HCL Inactive LISINOPRIL 20 MG TABS 1 tab po qd LISINOPRIL 20 MG TABS 562662 LISINOPRIL Inactive SAPHRIS 10 MG SUBL 1 [...] twice daily BACTRIM DS 800-160 MG TAB 297999 TRIMETHOPRIM-SULFAMETHOXAZOLE Inactive MULTIVITAMINS CAPS Take one by mouth daily MULTIVITAMINS CAPS MULTIPLE VITAMIN Inactive MELATONIN 3 MG CAPS 2 po q hs MELATONIN 3 MG CAPS 014690 MELATONIN Inactive KEFLEX 500 MG ORAL CAPS 1 cap QID by mouth KEFLEX 500 MG ORAL CAPS 071222 CEPHALEXIN Inactive CLINDAMYCIN HCL 150 MG CAPS 1 four times a day CLINDAMYCIN HCL 150 MG CAPS 030933 CLINDAMYCIN HCL Inactive DIFLUCAN 150 MG TAB 1 tablet by mouth daily DIFLUCAN 150 MG TAB 443657 FLUCONAZOLE Inactive PROZAC 20 MG CAP Take one by mouth daily PROZAC 20 MG CAP 528892 FLUOXETINE HCL Inactive IBUPROFEN 600 MG TAB 1 po TID PRN IBUPROFEN 600 MG TAB 970303 IBUPROFEN Inactive VYVANSE 40 MG CAPS 1 daily, VYVANSE 40 MG CAPS LISDEXAMFETAMINE DIMESYLATE Inactive TRAZODONE HCL 100 MG TAB take 1 at bedtime TRAZODONE HCL 100 MG TAB 073441 TRAZODONE HCL Inactive AMITRIPTYLINE HCL 100 MG TAB one at hs AMITRIPTYLINE HCL 100 MG TAB 098081 AMITRIPTYLINE HCL Inactive AMLODIPINE BESYLATE 5 MG TABS 1 tablet by mouth daily AMLODIPINE BESYLATE 5 MG TABS 157812 AMLODIPINE BESYLATE Inactive LATUDA 80 MG TABS Take one by mouth daily LATUDA 80 MG TABS LURASIDONE HCL Inactive SAPHRIS 5 MG SUBL 1 po bid SAPHRIS 5 MG SUBL ASENAPINE MALEATE Inactive PREDNISONE 20 MG TAB 2 tabs daily for 4 days, 1 tab daily for 4 days, 1/2 tab daily for 4 days PREDNISONE 20 MG TAB 025839 PREDNISONE Inactive AMBIEN 5 MG ORAL TABS 1 tab at bedtime AMBIEN 5 MG ORAL TABS 803859 ZOLPIDEM TARTRATE Inactive PROZAC 20 MG ORAL CAPS 1 tab daily PROZAC 20 MG ORAL CAPS 518716 FLUOXETINE HCL Inactive ABILIFY 15 MG ORAL TABS 1 tab daily ABILIFY 15 MG ORAL TABS 161762 ARIPIPRAZOLE Inactive METOPROLOL TARTRATE 50 MG TAB 1 po bid METOPROLOL TARTRATE 50 MG TAB 391259 METOPROLOL TARTRATE Inactive TRAMADOL HCL 50 MG TABS 1-2 po TID PRN Pain TRAMADOL HCL 50 MG TABS 196740 TRAMADOL HCL Inactive PIROXICAM 20 MG CAPS 1 cap po qd PRN Pain PIROXICAM 20 MG CAPS 503239 PIROXICAM Inactive MINIPRESS 2 MG CAPS 4 cap po at night MINIPRESS 2 MG CAPS 657498 PRAZOSIN HCL Inactive MIRALAX PACK 1 po qd PRN Constipation MIRALAX PACK 953344 POLYETHYLENE GLYCOL 3350 Inactive METOPROLOL TARTRATE 25 MG ORAL TABS 1/2 tablet twice daily for heart rate and blood pressure METOPROLOL TARTRATE 25 MG ORAL TABS 853868 METOPROLOL TARTRATE Inactive VALIUM 5 MG TAB Take 1-2 tablets daily VALIUM 5 MG TAB 450309 DIAZEPAM Inactive FLAGYL 500 MG TAB 1 tablet by mouth bid FLAGYL 500 MG TAB 409012 METRONIDAZOLE Inactive DICLOFENAC POTASSIUM TABS Take 1 tablet twice a day (pt. is not sure of the dose.) DICLOFENAC POTASSIUM TABS DICLOFENAC POTASSIUM TABS Inactive ZITHROMAX Z-EARNEST 250 MG TABS 2 today and then 1 daily for 4 days ZITHROMAX Z-EARNEST 250 MG TABS 7581866 AZITHROMYCIN Inactive PREDNISONE 20 MG TABS 2 daily for 5 days then 1 daily for 5 days PREDNISONE 20 MG TABS 652227 PREDNISONE Inactive PROAIR HFA 108 (90 BASE) MCG/ACT AERS 2 puffs four times a day as needed 2015 PROAIR HFA 108 (90 BASE) MCG/ACT AERS ALBUTEROL SULFATE Inactive HYDROCODONE-ACETAMINOPHEN 5-325 MG TABS 1 to 2 four times a day as needed for pain use until can be seen by specialist HYDROCODONE- ACETAMINOPHEN 5-325 MG TABS 370076 HYDROCODONE-ACETAMINOPHEN Inactive TESSALON PERLES 100 MG CAP 1 to 2 tablets by mouth 3 times daily as needed for cough TESSALON PERLES 100 MG CAP 059623 BENZONATATE Inactive CHANTIX STARTING MONTH EARNEST 0.5 [...] Pain 2015 DICLOFENAC SODIUM 50 MG TBEC 851705 DICLOFENAC SODIUM Inactive TOPAMAX 50 MG ORAL TABS 1 tab twice daily TOPAMAX 50 MG ORAL TABS 787414 TOPIRAMATE Inactive VIIBRYD 10 MG ORAL TABS Take 1 tablet once a day VIIBRYD 10 MG ORAL TABS VILAZODONE HCL Inactive LEVOFLOXACIN 500 MG ORAL TABS po daily LEVOFLOXACIN 500 MG ORAL TABS 594085 LEVOFLOXACIN Inactive METHYLPREDNISOLONE 4 MG ORAL TABS po daily METHYLPREDNISOLONE 4 MG ORAL TABS 262130 METHYLPREDNISOLONE Inactive OXYCODONE HCL ER 10 MG ORAL T12A 1/2 tab by mouth every 4 hours prn OXYCODONE HCL ER 10 MG ORAL T12A OXYCODONE HCL Inactive FLAGYL 500 MG TAB 1 tablet by mouth bid FLAGYL 500 MG TAB 783771 METRONIDAZOLE Inactive MONISTAT 7 COMBO PACK WOODROW 100 & 2 MG-% (9GM) VAG KIT 1 applicatorful per vagina q pm x 7 MONISTAT 7 COMBO PACK WOODROW 100 & 2 MG-% (9GM) VAG KIT MICONAZOLE NITRATE Inactive BACTRIM DS 800-160 MG TABS 1 twice a day BACTRIM DS 800-160 MG TABS 966954 SULFAMETHOXAZOLE-TRIMETHOPRIM Inactive TRAMADOL HCL 50 MG TABS 1/2-1 tab TID PRN TRAMADOL HCL 50 MG TABS 859935 TRAMADOL HCL Inactive ABILIFY MAINTENA 400 MG IM SUSR 400mg injection every 26 days ABILIFY MAINTENA 400 MG IM SUSR ARIPIPRAZOLE Inactive KLONOPIN 1 MG ORAL TABS 1 tab po TID KLONOPIN 1 MG ORAL TABS 951156 CLONAZEPAM Inactive ADVAIR DISKUS 250-50 MCG/DOSE INH AEPB 1 puff twice a day for asthma ADVAIR DISKUS 250-50 MCG/DOSE INH AEPB FLUTICASONE- SALMETEROL Inactive BENADRYL 25 MG CAP 4 po at bedtime for insomnia BENADRYL 25 MG CAP DIPHENHYDRAMINE HCL Inactive PREDNISONE 20 MG TABS 2 daily for 5 days then 1 daily for 5 days PREDNISONE 20 MG TABS 481996 PREDNISONE Inactive HYDROCODONE-ACETAMINOPHEN 5-325 MG ORAL TABS 1 tab two times a day HYDROCODONE-ACETAMINOPHEN 5-325 MG ORAL TABS 779655 HYDROCODONE-ACETAMINOPHEN Inactive ZITHROMAX Z-EARNEST 250 MG TABS 2 today and then 1 daily for 4 days ZITHROMAX Z-EARNEST 250 MG TABS 1657813 AZITHROMYCIN Inactive GUAIFENESIN-CODEINE 100-10 MG/5ML SYRP 5ml every 4 to 6 hours as needed for cough GUAIFENESIN-CODEINE 100-10 MG/5ML SYRP 713144 GUAIFENESIN-CODEINE Inactive HALOPERIDOL 10 MG ORAL TABS 1 tab q.d HALOPERIDOL 10 MG ORAL TABS 450800 HALOPERIDOL Inactive ASPIRIN 325 MG ORAL TABS 1 tab q.d ASPIRIN 325 MG ORAL TABS 180262 ASPIRIN Inactive FLUTICASONE PROPIONATE 50 MCG/ACT SUSP 2 sprays each nostril daily before bed. FLUTICASONE PROPIONATE 50 MCG/ACT SUSP 3261945 FLUTICASONE PROPIONATE Inactive ZOFRAN 4 MG TABS 1 po q6hr PRN Nausea ZOFRAN 4 MG TABS 224169 ONDANSETRON HCL Inactive CEFDINIR 300 MG CAPS by mouth twice a day CEFDINIR 300 MG CAPS 456481 CEFDINIR Inactive PREDNISONE 20 MG TAB 2 tabs daily for 3 days, 1 tab daily for 3 days, 1/2 tab daily for 2 days PREDNISONE 20 MG TAB 904636 PREDNISONE Inactive BACTRIM DS 800-160 MG TABS 1 po BID x 7 days BACTRIM DS 800-160 MG TABS 19820521 SULFAMETHOXAZOLE-TRIMETHOPRIM Inactive DIFLUCAN 150 MG TABS 1 pill every other day x 2 doses DIFLUCAN 150 MG TABS 820331 FLUCONAZOLE Inactive BACTRIM DS 800-160 MG TABS 1 pill by mouth twice daily BACTRIM DS 800-160 MG TABS 19820521 SULFAMETHOXAZOLE-TRIMETHOPRIM Inactive KEFLEX 500 MG CAP 1 po TID x 10 days KEFLEX 500 MG CAP 762089 CEPHALEXIN Inactive Advance Directives Directive Description Start [...] % 11.0-15.0 platelet count 443 THOUSAND/UL 10*3/mm3 119-455 0800/03/01 mean platelet volume 8.2 fL 7.5-12.5 Lab [...] 369 10^3/MM^3 10*3/mm3 142-424 Lab Report: Chlamydia/GC APTIMA/[id number] - Lab chlamydia DNA probe NOT DETECTED NOT DETECTED Lab Report: Chlamydia/GC APTIMA/[id number] - Microbiology Neisseria gonorrhoeae DNA probe NOT DETECTED NOT DETECTED Lab Report: Chlamydia/GC APTIMA/[id number], Urinalysis, Complete, with Reflex ... - Lab chlamydia DNA probe NOT DETECTED NOT DETECTED Lab Report: Chlamydia/GC APTIMA/[id number], Urinalysis, Complete, with Reflex ... - Microbiology Neisseria gonorrhoeae DNA probe NOT DETECTED NOT DETECTED Lab Report: Chlamydia/GC APTIMA/[id number], Urinalysis, Complete, with Reflex ... - Urinalysis microalbumin/total urine volume 2 mg/L Units converted. See lab report for original value. microalbumin/creatinine ratio, urine 9 MCG/MG CREAT mg/L <30 Lab Report: Comp. Metabolic Panel - Chemistry sodium, serum 142 mmol/L 794-203 4898/06/08 carbon dioxide, venous blood 27.6 mmol/L 21.0-32.0 [...] 33.7 mmol/L 21.0-32.0 sodium, serum 140 mmol/L 136-145 Lab Report: UADIP W/MICRO, AUTO [...] mg/dL Encounters Code Encounter Date Provider Facility CPT-79713 Level 3 Est. Patient 15:28:23 FINANCIAL COUNSELOR Suzan Boo [facility] CPT-46892 Level 4 Est. Patient 10:20:54 FINANCIAL COUNSELOR [facility] CPT-76514 Level 3 Est. Patient 11:47:37 FINANCIAL COUNSELOR Ahmet Carbajal MD [facility] CPT-11710 Level 3 Est. Patient 10:40:11 FINANCIAL COUNSELOR Ahmet Carbajal MD [facility] CPT-01334 Level 3 Est. Patient 15:07:06 FINANCIAL COUNSELOR Neeraj Collins MD [facility] CPT-00151 Level 4 Est. Patient 14:45:00 FINANCIAL COUNSELOR Ahmet Carbajal MD [facility] CPT-60281 Level 3 Est. Patient 13:59:59 CDT [facility]igi [facility] CPT-52045 Level 3 Est. Patient 18:18:53 CDT Neeraj Collins MD [facility] CPT-94391 Level 3 Est. Patient 15:50:44 CDT Vishal Hui MD [facility] CPT-00521 Level 3 Est. Patient 11:36:17 CDT Ahmet Carbajal MD [facility] CPT-16437 Level 3 Est. Patient 13:29:16 CDT Vishal Hui MD [facility] CPT-68325 Level 3 Est. Patient 14:27:52 CDT Neeraj Collins MD [facility] CPT-03801 Level 3 Est. Patient 08:56:03 CDT [facility] CPT-59578 Level 4 Est. Patient 12:11:48 CDT Fabiola Johnson [facility] CPT-93385 Level 3 New Patient 16:53:37 CDT Albert Caldera MD [facility] CPT-06876 Level 3 Est. Patient 11:25:49 CDT Renzo Thornton DO [facility] CPT-66037 Level 3 Est. Patient 15:22:01 CDT Ahmet Carbajal MD [facility] CPT-75894 Level 4 Est. Patient 09:00:51 FINANCIAL COUNSELOR Vishal Hui MD [facility] CPT-66631 Level 3 Est. Patient 11:37:33 FINANCIAL COUNSELOR Vishal Hui MD [facility] CPT-25837 Level 3 Est. Patient 08:41:09 FINANCIAL COUNSELOR Vishal Hui MD [facility] CPT-68042 Level 4 Est. Patient 10:19:35 FINANCIAL COUNSELOR Vishal Hui MD [facility] CPT-02058 Level 3 Est. Patient 13:35:45 CDT Vishal Hui MD [facility] CPT-18843 Level 4 Est. Patient 10:08:37 CDT Vishal Hui MD [facility] CPT-68292 Level 3 Est. Patient 11:22:10 CDT Vishal Hui MD [facility] CPT-12363 Level 3 Est. Patient 11:03:32 CDT Sahara Rodriguez MD [facility] CPT-56378 Level 3 Est. Patient 09:41:35 CDT Vishal Hui MD [facility] CPT-55621 Level 3 Est. Patient 12:00:41 CDT Neeraj Collins MD [facility] CPT-77445 Level 3 Est. Patient 09:16:24 CDT Vishal Hui MD [facility] CPT-07355 Level 4 Est. Patient 13:59:09 CDT Neeraj Collins MD [facility] CPT-73427 Level 3 Est. Patient 15:19:43 CDT Renzo Thornton [facility] CPT-38451 Level 3 Est. Patient 18:10:26 CDT Sahara Rodriguez MD [facility]-94226 Level 3 Est. Patient 14:49:50 CDT Vishal Hui MD [facility]-39066 Level 4 Est. Patient 18:41:46 CDT Neeraj Collins MD [facility] CPT-46318 Level 4 Est. Patient 09:18:38 FINANCIAL COUNSELOR Vishal Hui MD [facility] CPT-13939 Level 3 Est. Patient 14:43:55 FINANCIAL COUNSELOR Vishal Hui MD [facility] CPT-92154 Level 3 Est. Patient 15:26:33 FINANCIAL COUNSELOR Sahara Rodriguez MD [facility]-82043 Level 3 Est. Patient 10:32:14 FINANCIAL COUNSELOR Vishal Hui MD [facility] CPT-71770 Level 3 Est. Patient 15:12:52 FINANCIAL COUNSELOR Vishal Hui MD [facility] CPT-86174 Level 4 Est. Patient 09:19:27 CDT Vishal Hui MD [facility] CPT-43008 Level 3 Est. Patient 15:53:00 CDT Renzo Thornton [facility] CPT-16852 Level 3 Est. Patient 15:50:30 CDT Renzo Thornton [facility] CPT-31465 Level 3 Est. Patient 16:55:24 CDT Vishal Hui MD [facility] Procedures Code Procedure Name Date Entry Date Standard Description CPT-G0439 [facility] Annual Wellness Exam 09:30:58 FINANCIAL COUNSELOR CPT-27597 TSH - LAB USE ONLY 08:50:26 FINANCIAL COUNSELOR CPT-36048 CBC - LAB USE ONLY 08:50:26 FINANCIAL COUNSELOR CPT-51975 Venipuncture Draw Fee 08:50:26 FINANCIAL COUNSELOR CPT-86048 Abx/Therapy Injection 17:34:30 FINANCIAL COUNSELOR CPT-42725 Nexplanon Removal with Reinsertion 14:09:32 CDT CPT-J7307 Nexplanon (Implant) 14:09:32 CDT CPT-OV Office Visit 14:09:32 CDT CPT-16983 UA w micro - LAB USE ONLY 16:21:13 CDT CPT-60641 Wet Mount - LAB USE ONLY 16:21:13 CDT CPT-76017 First Vx - Ix admin for Medicare patients 14:37:47 CDT CPT-37758 Fluzone Preservative Free Intramuscular Suspension 14:37 :47 CDT CPT-90276 Abx/Therapy Injection 13:54:22 CDT CPT-63315 Abx/Therapy Injection 08:47:09 CDT CPT-83615 Abx/Therapy Injection 13:29:56 CDT CPT-22491 Abx/Therapy Injection 08:36:16 CDT CPT-46018 Wet Mount - LAB USE ONLY 17:44:58 CDT CPT-29815 UA w micro - LAB USE ONLY 17:44:58 CDT CPT-33793 CMP - LAB USE ONLY 17:44:58 CDT CPT-21627 Venipuncture Draw Fee 17:44:58 CDT CPT-93553 Cervical Min 4V - XRAY USE ONLY 09:01:40 CDT CPT-64285 Chest 2V Frontal and Lat - XRAY USE ONLY 11:06:31 CDT CPT-13461 EKG Trac and Interp - XRAY USE ONLY 11:31:43 CDT 08/26 CPT-J3420 Vitamin B12 1000mcg (Cyanocobalamin) 08:10:26 FINANCIAL COUNSELOR 04/12 CPT-25065 Abx/Therapy Injection 08:10:26 FINANCIAL COUNSELOR CPT-G0438 Initial Annual Wellness Exam 19:01:01 FINANCIAL COUNSELOR CPT-J3420 Vitamin B12 1000mcg (Cyanocobalamin) 16:57:46 CDT 08/14 CPT-24281 Recombivax HB Injection Suspension 5 MCG/0.5ML 08:37:50 FINANCIAL COUNSELOR CPT-42674 Immunization Single Admin 08:37:50 FINANCIAL COUNSELOR CPT-J3420 Vitamin B12 1000mcg (Cyanocobalamin) 08:32:16 FINANCIAL COUNSELOR 03/11 CPT-31102 Abx/Therapy Injection 08:32:16 FINANCIAL COUNSELOR CPT-02458 Chest 2V Frontal and Lat 11:46:38 FINANCIAL COUNSELOR CPT-43853 Venipuncture Draw Fee 09:12:45 FINANCIAL COUNSELOR CPT-J3420 Vitamin B12 1000mcg (Cyanocobalamin) 08:50:15 FINANCIAL COUNSELOR 02/08 CPT-16790 Abx/Therapy Injection 08:50:15 FINANCIAL COUNSELOR CPT-Cryo Cryotherapy 10:19:35 FINANCIAL COUNSELOR CPT-000 Give Appropriate Flu Vaccine 09:22:16 CDT CPT-J3420 Vitamin B12 1000mcg (Cyanocobalamin) 19:08:57 CDT 01/11 CPT-43960 Abx/Therapy Injection 19:08:57 CDT CPT-J3420 Vitamin B12 1000mcg (Cyanocobalamin) 08:19:08 CDT 12/11 CPT-26709 Abx/Therapy Injection 08:19:08 CDT CPT-J3420 Vitamin B12 1000mcg (Cyanocobalamin) 14:48:00 CDT 11/09 CPT-45398 Abx/Therapy Injection 14:47:59 CDT CPT-J3420 Vitamin B12 1000mcg (Cyanocobalamin) 08:34:04 CDT 10/09 CPT-50212 Abx/Therapy Injection 08:34:04 CDT CPT-J3420 Vitamin B12 1000mcg (Cyanocobalamin) 09:18:52 CDT 09/11 CPT-79234 Abx/Therapy Injection 09:18:52 CDT CPT-J3420 Vitamin B12 1000mcg (Cyanocobalamin) 08:35:44 CDT 09/04 CPT-83268 Abx/Therapy Injection 08:35:44 CDT CPT-53494 Immunization Single Admin 11:07:16 CDT CPT-21204 Hepatitis B adult IM 11:07:16 CDT CPT-J3420 Vitamin B12 1000mcg (Cyanocobalamin) 11:00:49 CDT 08/28 CPT-J1040 Depo Medrol 80 mg (Methyl Prednisolone Acetate) 11:00: 49 CDT CPT-78170 Abx/Therapy Injection 11:00:49 CDT CPT-J1040 Depo Medrol 80 mg (Methyl Prednisolone Acetate) 09:16: 23 CDT CPT-J3420 Vitamin B12 1000mcg (Cyanocobalamin) 08:27:05 CDT 08/20 CPT-55787 Abx/Therapy Injection 08:27:05 CDT CPT-16485 Recombivax HB Injection Suspension 5 MCG/0.5ML 10:00:41 CDT CPT-20565 Administration single or combination vaccine inc oral 10 :00:41 CDT CPT-62213 Sono transvag pelvis non OB uterus ovaries cervix 16:36: 57 CDT CPT-02934 LS spine comp w obliq 09:50:55 FINANCIAL COUNSELOR CPT-15128 Abd compl w upright 09:50:55 FINANCIAL COUNSELOR CPT-J1100 Decadron 4mg (Dexamethasone) 15:51:24 FINANCIAL COUNSELOR CPT-J1030 Depo Medrol 40 mg (Methyl Prednisolone Acetate) 15:51: 24 FINANCIAL COUNSELOR CPT-85942 Abx/Therapy Injection 15:51:24 FINANCIAL COUNSELOR CPT-J1100 Decadron 4mg (Dexamethasone) 15:26:33 FINANCIAL COUNSELOR CPT-J1030 Depo Medrol 40 mg (Methyl Prednisolone Acetate) 15:26: 33 FINANCIAL COUNSELOR CPT-53582 Sono retroperitoneal complete kidneys and bladder 17:15: 30 CDT CPT-63500 Abd compl w upright 16:09:25 CDT CPT-J1100 Decadron 8mg (Dexamethasone) 17:07:57 CDT CPT-46955 Abx/Therapy Injection 17:07:57 CDT CPT-J1100 Decadron 8mg (Dexamethasone) 16:55:24 CDT CPT-82677 Chest 2V Frontal and Lat 16:32:44 CDT
--- OUTSIDE RECORDS SUMMARY | 2016-11-04 15:28 | XMS REPORT | Clinical Summary ---
Author Author Admin, FLOR Organization [facility] Address Unknown Phone Unavailable Allergies, Adverse Reactions, [...] MD Dysthymic disorder Hypertension 401.9 Active Vishal uHi MD Unspecified essential hypertension Pneumonia, organism unspecified [...] of unspecified sites Physical examination V70.0 Resolved Vihsal Hui MD Routine general medical examination at [...] sites Morbid obesity 278.01 Active Juliet Kimbrough FLUID DESIGNER Morbid obesity 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 Active Juliet [...] breath Nocturnal hypoxia 799.02 Active Fabiola Johnson FLUID DESIGNER Hypoxemia Neck pain 723.1 Resolved Vishal Hui [...] fibula Vaginal discharge 623.5 Active Luigi Martínez FLUID DESIGNER Leukorrhea, not specified as infective DYSURIA 788.1 [...] each nostril daily for allergies FLUTICASONE PROPIONATE 68651052152 Active Tila Valenzuela Active GUAIFENESIN-CODEINE 100-10 MG/5ML SYRP 5ml every 4 to 6 hours as needed for cough GUAIFENESIN-CODEINE 65113720726 Active Ahmet Carbajal MD Active PREDNISONE 20 MG TABS 2 daily for 5 days then 1 daily for 5 days PREDNISONE 00198298418 Active Ahmet Carbajal MD Active LAMICTAL 100 MG ORAL TABS 1 tab q.d LAMOTRIGINE 76191688084 Active Ahmet Carbajal MD Active BENADRYL 25 MG CAP 4 po at bedtime for insomnia DIPHENHYDRAMINE HCL 36390858397 No Longer Active Ahmet Carbajal MD Active ADVAIR DISKUS 250-50 MCG/DOSE INH AEPB 1 puff twice a day for asthma FLUTICASONE-SALMETEROL 59294404914 No Longer Active Ahmet Carbajal MD Active KLONOPIN 1 MG ORAL TABS 1 tab po TID CLONAZEPAM 65279511045 No Longer Active Ahmet Carbajal MD Active ABILIFY MAINTENA 400 MG IM SUSR 400mg injection every 26 days ARIPIPRAZOLE 00013922938 No Longer Active Ahmet Carbajal MD Active HALOPERIDOL 10 MG ORAL TABS 1 tab q.d HALOPERIDOL 98716295893 Active Ahmet Carbajal MD Active ASPIRIN 325 MG ORAL TABS 1 tab q.d ASPIRIN 62592593642 Active Ahmet Carbajal MD Active HYDROCODONE-ACETAMINOPHEN 5-325 MG ORAL TABS 1 tab two times a day HYDROCODONE-ACETAMINOPHEN 13191039148 Active Ahmet Carbajal MD Active TRAMADOL HCL 50 MG TABS 1/2-1 tab TID PRN TRAMADOL HCL 18485152834 No Longer Active Ahmet Carbajal MD Active BACTRIM DS 800-160 MG TABS 1 twice a day SULFAMETHOXAZOLE- TRIMETHOPRIM 78128573526 No Longer Active Ahmet Carbajal MD Active PROAIR HFA 108 (90 BASE) MCG/ACT AERS 2 puffs four times a day as needed 2015 ALBUTEROL SULFATE 15161175494 Active Ahmet Carbajal MD Active EQ NICOTINE 21 MG/24HR TRANS PT24 Apply daily to stop smoking NICOTINE 79251471107 Active Ahmet Carbajal MD Active MONISTAT 7 COMBO PACK WOODROW 100 & 2 MG-% (9GM) VAG KIT 1 applicatorful per vagina q pm x 7 MICONAZOLE NITRATE 93931961582 No Longer Active Ahmet Carbjaal MD Active FLAGYL 500 MG TAB 1 tablet by mouth bid METRONIDAZOLE 22969269871 No Longer Active Ahmet Carbajal MD Active OXYCODONE HCL ER 10 MG ORAL T12A 1/2 tab by mouth every 4 hours prn OXYCODONE HCL 09148855403 No Longer Active Ahmet Carbajal MD Active METHYLPREDNISOLONE 4 MG ORAL TABS po daily METHYLPREDNISOLONE 77284154067 No Longer Active Ahmet Carbajal MD Active LEVOFLOXACIN 500 MG ORAL TABS po daily LEVOFLOXACIN 27371995995 No Longer Active Ahmet Carbajal MD Active VIIBRYD 10 MG ORAL TABS Take 1 tablet once a day VILAZODONE HCL 32581119185 No Longer Active Ahmet Carbajal MD Active TOPAMAX 50 MG ORAL TABS 1 tab twice daily TOPIRAMATE 80837372316 No Longer Active Ahmet Carbajal MD Active DICLOFENAC SODIUM 50 MG TBEC 1 tablet by mouth four times daily PRN Pain 2015 DICLOFENAC SODIUM 54895714835 No Longer Active Ahmet Carbajal MD Active ADZENYS XR-ODT 6.3 MG ORAL TBED 1 tab po daily for ADHD AMPHETAMINE 77101574557 No Longer Active Ahmet Carbajal MD Active CHANTIX 1 MG TABS 1 twice a day to help quit smoking VARENICLINE TARTRATE 91545974141 No Longer Active Dipika Burgos MD Active CHANTIX STARTING MONTH EARNEST 0.5 MG X 11 & 1 MG X 42 TABS take as directed 2015 VARENICLINE TARTRATE 06903600879 No Longer Active Dipika Burgos MD Active TESSALON PERLES 100 MG CAP 1 to 2 tablets by mouth 3 times daily as needed for cough BENZONATATE 36998729625 No Longer Active Luigi Martínez FLUID DESIGNER Active IMITREX 50 MG ORAL TABS 0.5 po x 1 PRN Headache. May repeat dose x 1 in 2 hours if needed SUMATRIPTAN SUCCINATE 14077445765 Active TAMARA Casey Active HYDROCODONE-ACETAMINOPHEN 5-325 MG TABS 1 to 2 four times a day as needed for pain use until can be seen by specialist HYDROCODONE- ACETAMINOPHEN 74458245168 No Longer Active Vishal Hui MD Active PROAIR HFA 108 (90 BASE) MCG/ACT AERS 2 puffs four times a day as needed 2015 ALBUTEROL SULFATE 81024859249 No Longer Active Vishal Hui MD Active PREDNISONE 20 MG TABS 2 daily for 5 days then 1 daily for 5 days PREDNISONE 50819557219 No Longer Active Vishal Hui MD Active ZITHROMAX Z-EARNEST 250 MG TABS 2 today and then 1 daily for 4 days AZITHROMYCIN 08048563695 No Longer Active Vishal Hui MD Active DICLOFENAC POTASSIUM TABS Take 1 tablet twice a day (pt. is not sure of the dose.) DICLOFENAC POTASSIUM TABS 87501066943 No Longer Active Vishal Hui MD Active VERAPAMIL HCL ER 120 MG ORAL CR-TABS Take 1 tablet by mouth twice a day. VERAPAMIL HCL 82292886322 Active Vishal Hui MD Active FLAGYL 500 MG TAB 1 tablet by mouth bid METRONIDAZOLE 68181881643 No Longer Active Vishal Hui MD Active FLUTICASONE PROPIONATE 50 MCG/ACT SUSP 2 sprays each nostril daily before bed. FLUTICASONE PROPIONATE 89962141404 Active Fabiola Johnson APRN Active VALIUM 5 MG TAB Take 1-2 tablets daily DIAZEPAM 51825780662 No Longer Active Fabiola Johnson APRN Active METOPROLOL TARTRATE 25 MG ORAL TABS 1/2 tablet twice daily for heart rate and blood pressure METOPROLOL TARTRATE 75966827744 No Longer Active Fabiola Johnson APRN Active MIRALAX ORAL POWD 17GMS DAILY IN WATER POLYETHYLENE GLYCOL 3350 75280413134 Active Vishal Hui MD Active MIRALAX PACK 1 po qd PRN Constipation POLYETHYLENE GLYCOL 3350 00153423733 No Longer Active Ahmet Carbajal MD Active MINIPRESS 2 MG CAPS 4 cap po at night PRAZOSIN HCL 34798734495 No Longer Active Ahmet Carbajal MD Active PIROXICAM 20 MG CAPS 1 cap po qd PRN Pain PIROXICAM 77899917217 No Longer Active Ahmet Carbajal MD Active TRAMADOL HCL 50 MG TABS 1-2 po TID PRN Pain TRAMADOL HCL 12570376560 No Longer Active Ahmet Carbajal MD Active METOPROLOL TARTRATE 50 MG TAB 1 po bid METOPROLOL TARTRATE 14189429837 No Longer Active Ahmet Carbajal MD Active ABILIFY 15 MG ORAL TABS 1 tab daily ARIPIPRAZOLE 31400543054 No Longer Active Ahmet Carbajal MD Active PROZAC 20 MG ORAL CAPS 1 tab daily FLUOXETINE HCL 44612021568 No Longer Active Ahmet Carbajal MD Active AMBIEN 5 MG ORAL TABS 1 tab at bedtime ZOLPIDEM TARTRATE 89331588986 No Longer Active Ahmet Carbajal MD Active PREDNISONE 20 MG TAB 2 tabs daily for 4 days, 1 tab daily for 4 days, 1/2 tab daily for 4 days PREDNISONE 58168792257 No Longer Active Ahmet Carbajal MD Active KEFLEX 500 MG CAP 1 po TID x 10 days CEPHALEXIN 93403149318 No Longer Active Vishal Hui MD Active SAPHRIS 5 MG SUBL 1 po bid ASENAPINE MALEATE 53688468687 No Longer Active Jillina Frazelephraim FLUID DESIGNER Active LATUDA 80 MG TABS Take one by mouth daily LURASIDONE HCL 80685220371 No Longer Active Jillina Frazell FLUID DESIGNER Active AMLODIPINE BESYLATE 5 MG TABS 1 tablet by mouth daily AMLODIPINE BESYLATE 05547498238 No Longer Active Jillina Fradwightl FLUID DESIGNER Active AMITRIPTYLINE HCL 100 MG TAB one at hs AMITRIPTYLINE HCL 19578016749 No Longer Active Vishal Hui MD Active TRAZODONE HCL 100 MG TAB take 1 at bedtime TRAZODONE HCL 79840383832 No Longer Active Vishal Hui MD Active VYVANSE 40 MG CAPS 1 daily, LISDEXAMFETAMINE DIMESYLATE 30863585624 No Longer Active Vishal Hui MD Active IBUPROFEN 600 MG TAB 1 po TID PRN IBUPROFEN 25497881282 No Longer Active Vishal Hui MD Active PROZAC 20 MG CAP Take one by mouth daily FLUOXETINE HCL 52691990553 No Longer Active Vishal Hui MD Active ZOFRAN 4 MG TABS 1 po q6hr PRN Nausea ONDANSETRON HCL Active Vishal Hui MD Active BACTRIM DS 800-160 MG TABS 1 pill by mouth twice daily SULFAMETHOXAZOLE-TRIMETHOPRIM 22777735914 No Longer Active Sahara Rodriguez MD PhD Active DIFLUCAN 150 MG TAB 1 tablet by mouth daily FLUCONAZOLE 95875749368 No Longer Active Vishal Hui MD Active TIZANIDINE HCL 4 MG TABS 1 po q6hr PRN Muscle Spasm/Back Pain TIZANIDINE HCL 76876543080 Active Vishal Hui MD Active CLINDAMYCIN HCL 150 MG CAPS 1 four times a day CLINDAMYCIN HCL 48832790231 No Longer Active Neeraj Collins MD Active KEFLEX 500 MG ORAL CAPS 1 cap QID by mouth CEPHALEXIN 75786326682 No Longer Active Neeraj Collins MD Active DIFLUCAN 150 MG TABS 1 pill every other day x 2 doses FLUCONAZOLE 05403459339 No Longer Active Sahara Rodriguez MD PhD Active MELATONIN 3 MG CAPS 2 po q hs MELATONIN 00841703962 No Longer Active Sahara Rodriguez MD PhD Active MULTIVITAMINS CAPS Take one by mouth daily MULTIPLE VITAMIN 41004445963 No Longer Active Sahara Rodriguez MD PhD Active BACTRIM DS 800-160 MG TAB 1 tab by mouth twice daily TRIMETHOPRIM-SULFAMETHOXAZOLE 66276811278 No Longer Active Sahara Rodriguez MD PhD Active [facility] PROBIOTIC ORAL CHEW 2 daily po PROBIOTIC PRODUCT 03074690295 No Longer Active Sahara Rodriguez MD PhD Active BACTRIM DS 800-160 MG TABS 1 po BID x 7 days SULFAMETHOXAZOLE-TRIMETHOPRIM 29422271448 No Longer Active Vishal Hui MD Active CHANTIX STARTING MONTH EARNEST 0.5 MG X 11 & 1 MG X 42 TABS 0.5mg daily for 3 days , then 0.5mg BID for 4 days, then 1mg BID VARENICLINE TARTRATE 41848863713 No Longer Active TAMARA Gray Active VERAPAMIL HCL CR 120 MG TAB CR 1 po bid VERAPAMIL HCL 64903914082 No Longer Active Vishal Hui MD Active METOPROLOL SUCCINATE 50 MG TB24 1 tablet by mouth daily METOPROLOL SUCCINATE 75102734120 No Longer Active Vishal Hui MD Active SAPHRIS 10 MG SUBL 1 tab po bid ASENAPINE MALEATE 95218084874 No Longer Active Vishal Hui MD Active LISINOPRIL 20 MG TABS 1 tab po qd LISINOPRIL 92008000009 No Longer Active Vishal uHi MD Active LATUDA 20 MG TABS Take one by mouth daily LURASIDONE HCL 67380140447 No Longer Active Vishal Hui MD Active TRAZODONE HCL 50 MG TABS 1/2 tab po qd prn for anxiety TRAZODONE HCL 00297599567 No Longer Active Vishal Hui MD Active OMEPRAZOLE 20 MG TBEC 1 po q a.m. 30min prior to first food intake OMEPRAZOLE 13683543541 Active Vishal Hui MD Active RANITIDINE HCL 150 MG CAPS 1 twice a day RANITIDINE HCL 17940623250 Active Jillina Messizelephraim FLUID DESIGNER Active LINZESS 290 MCG CAPS Take one by mouth daily LINACLOTIDE 93863564119 No Longer Active Vishal Hui MD Active SAPHRIS 5 MG SUBL 1 tab po qd ASENAPINE MALEATE 23766483899 No Longer Active Vishal Hui MD Active ZALEPLON 10 MG CAPS 1 cap po every other night ZALEPLON 43299388739 No Longer Active Vishal Hui MD Active LYRICA 50 MG CAPS 1 tab po TID PREGABALIN 63532386200 No Longer Active Vishal Hui MD Active LORATADINE 10 MG TABS 1 tab po qd LORATADINE 20221722905 No Longer Active Vishal Hui MD Active VERAPAMIL HCL ER 180 MG CR-TABS 1 tab po bid VERAPAMIL HCL 56979620847 No Longer Active Vishal Hui MD Active MIRALAX POWD 1 capfull once daily POLYETHYLENE GLYCOL 3350 42208376453 No Longer Active Vishal Hui MD Active PREDNISONE 20 MG TABS 1 tab po qd PREDNISONE 17486673998 No Longer Active Renzo Thornton DO Active LEVOFLOXACIN 500 MG TABS 1 tab po qd LEVOFLOXACIN 12814926729 No Longer Active Renzo Thornton DO Active BUSPIRONE HCL 15 MG TABS 1 tab po TID BUSPIRONE HCL 52028614976 No Longer Active Renzo Thornton DO Active BENZTROPINE MESYLATE 1 MG TABS 1 tab po qd BENZTROPINE MESYLATE 62193019988 No Longer Active Renzo Thornton DO Active ATENOLOL 25 MG TABS 1 tab po qd ATENOLOL 24819255069 No Longer Active Renzo Thornton DO Active ESCITALOPRAM OXALATE 20 MG TABS 1 tab po qd ESCITALOPRAM OXALATE 41776257125 No Longer Active Renzo Thornton DO Active ADVAIR DISKUS 250-50 MCG/DOSE AEPB 1 puff BID FLUTICASONE-SALMETEROL 11086307383 No Longer Active Renzo Thornton DO Active PREDNISONE 20 MG TAB 2 tabs daily for 3 days, 1 tab daily for 3 days, 1/2 tab daily for 2 days PREDNISONE 99881457397 No Longer Active Vishal Hui MD Active CEFDINIR 300 MG CAPS by mouth twice a day CEFDINIR 06534479174 No Longer Active Vishal Hui MD Active LANSOPRAZOLE 30 MG CPDR 1 cap po qd LANSOPRAZOLE 63333985517 No Longer Active Vishal Hui MD Active BACLOFEN 20 MG TABS 1 tab po tid BACLOFEN 66529663414 No Longer Active Vishal Hui MD Active ADVAIR DISKUS 250-50 MCG/DOSE AEPB 1 puff BID ADVAIR DISKUS 250-50 MCG/DOSE AEPB FLUTICASONE-SALMETEROL Inactive ESCITALOPRAM OXALATE 20 MG TABS 1 tab po qd ESCITALOPRAM OXALATE 20 MG TABS 284964 ESCITALOPRAM OXALATE Inactive ATENOLOL 25 MG TABS 1 tab po qd ATENOLOL 25 MG TABS 161998 ATENOLOL Inactive BENZTROPINE MESYLATE 1 MG TABS 1 tab po qd BENZTROPINE MESYLATE 1 MG TABS 493018 BENZTROPINE MESYLATE Inactive BUSPIRONE HCL 15 MG TABS 1 tab po TID BUSPIRONE HCL 15 MG TABS 311686 BUSPIRONE HCL Inactive LEVOFLOXACIN 500 MG TABS 1 tab po qd LEVOFLOXACIN 500 MG TABS 558281 LEVOFLOXACIN Inactive PREDNISONE 20 MG TABS 1 tab po qd PREDNISONE 20 MG TABS 539250 PREDNISONE Inactive MIRALAX POWD 1 capfull once daily MIRALAX POWD 118355 POLYETHYLENE GLYCOL 3350 Inactive VERAPAMIL HCL ER 180 MG CR-TABS 1 tab po bid VERAPAMIL HCL ER 180 MG CR-TABS VERAPAMIL HCL Inactive LORATADINE 10 MG TABS 1 tab po qd LORATADINE 10 MG TABS 058089 LORATADINE Inactive LYRICA 50 MG CAPS 1 tab po TID LYRICA 50 MG CAPS PREGABALIN Inactive ZALEPLON 10 MG CAPS 1 cap po every other night ZALEPLON 10 MG CAPS 798294 ZALEPLON Inactive SAPHRIS 5 MG SUBL 1 tab po qd SAPHRIS 5 MG SUBL ASENAPINE MALEATE Inactive TRAZODONE HCL 50 MG TABS 1/2 tab po qd prn for anxiety TRAZODONE HCL 50 MG TABS 068427 TRAZODONE HCL Inactive LATUDA 20 MG TABS Take one by mouth daily LATUDA 20 MG TABS LURASIDONE HCL Inactive LISINOPRIL 20 MG TABS 1 tab po qd LISINOPRIL 20 MG TABS 666522 LISINOPRIL Inactive SAPHRIS 10 MG SUBL 1 [...] twice daily BACTRIM DS 800-160 MG TAB 046938 TRIMETHOPRIM-SULFAMETHOXAZOLE Inactive MULTIVITAMINS CAPS Take one by mouth daily MULTIVITAMINS CAPS MULTIPLE VITAMIN Inactive MELATONIN 3 MG CAPS 2 po q hs MELATONIN 3 MG CAPS 367855 MELATONIN Inactive KEFLEX 500 MG ORAL CAPS 1 cap QID by mouth KEFLEX 500 MG ORAL CAPS 721810 CEPHALEXIN Inactive CLINDAMYCIN HCL 150 MG CAPS 1 four times a day CLINDAMYCIN HCL 150 MG CAPS 997112 CLINDAMYCIN HCL Inactive DIFLUCAN 150 MG TAB 1 tablet by mouth daily DIFLUCAN 150 MG TAB 453847 FLUCONAZOLE Inactive PROZAC 20 MG CAP Take one by mouth daily PROZAC 20 MG CAP 954499 FLUOXETINE HCL Inactive IBUPROFEN 600 MG TAB 1 po TID PRN IBUPROFEN 600 MG TAB 250091 IBUPROFEN Inactive VYVANSE 40 MG CAPS 1 daily, VYVANSE 40 MG CAPS LISDEXAMFETAMINE DIMESYLATE Inactive TRAZODONE HCL 100 MG TAB take 1 at bedtime TRAZODONE HCL 100 MG TAB 541979 TRAZODONE HCL Inactive AMITRIPTYLINE HCL 100 MG TAB one at hs AMITRIPTYLINE HCL 100 MG TAB 821327 AMITRIPTYLINE HCL Inactive AMLODIPINE BESYLATE 5 MG TABS 1 tablet by mouth daily AMLODIPINE BESYLATE 5 MG TABS 607496 AMLODIPINE BESYLATE Inactive LATUDA 80 MG TABS Take one by mouth daily LATUDA 80 MG TABS LURASIDONE HCL Inactive SAPHRIS 5 MG SUBL 1 po bid SAPHRIS 5 MG SUBL ASENAPINE MALEATE Inactive PREDNISONE 20 MG TAB 2 tabs daily for 4 days, 1 tab daily for 4 days, 1/2 tab daily for 4 days PREDNISONE 20 MG TAB 555434 PREDNISONE Inactive AMBIEN 5 MG ORAL TABS 1 tab at bedtime AMBIEN 5 MG ORAL TABS 808255 ZOLPIDEM TARTRATE Inactive PROZAC 20 MG ORAL CAPS 1 tab daily PROZAC 20 MG ORAL CAPS 339043 FLUOXETINE HCL Inactive ABILIFY 15 MG ORAL TABS 1 tab daily ABILIFY 15 MG ORAL TABS 750278 ARIPIPRAZOLE Inactive METOPROLOL TARTRATE 50 MG TAB 1 po bid METOPROLOL TARTRATE 50 MG TAB 347806 METOPROLOL TARTRATE Inactive TRAMADOL HCL 50 MG TABS 1-2 po TID PRN Pain TRAMADOL HCL 50 MG TABS 827454 TRAMADOL HCL Inactive PIROXICAM 20 MG CAPS 1 cap po qd PRN Pain PIROXICAM 20 MG CAPS 643244 PIROXICAM Inactive MINIPRESS 2 MG CAPS 4 cap po at night MINIPRESS 2 MG CAPS 738463 PRAZOSIN HCL Inactive MIRALAX PACK 1 po qd PRN Constipation MIRALAX PACK 945071 POLYETHYLENE GLYCOL 3350 Inactive METOPROLOL TARTRATE 25 MG ORAL TABS 1/2 tablet twice daily for heart rate and blood pressure METOPROLOL TARTRATE 25 MG ORAL TABS 718142 METOPROLOL TARTRATE Inactive VALIUM 5 MG TAB Take 1-2 tablets daily VALIUM 5 MG TAB 778388 DIAZEPAM Inactive FLAGYL 500 MG TAB 1 tablet by mouth bid FLAGYL 500 MG TAB 500222 METRONIDAZOLE Inactive DICLOFENAC POTASSIUM TABS Take 1 tablet twice a day (pt. is not sure of the dose.) DICLOFENAC POTASSIUM TABS DICLOFENAC POTASSIUM TABS Inactive ZITHROMAX Z-EARNEST 250 MG TABS 2 today and then 1 daily for 4 days ZITHROMAX Z-EARNEST 250 MG TABS 2549582 AZITHROMYCIN Inactive PREDNISONE 20 MG TABS 2 daily for 5 days then 1 daily for 5 days PREDNISONE 20 MG TABS 635635 PREDNISONE Inactive PROAIR HFA 108 (90 BASE) MCG/ACT AERS 2 puffs four times a day as needed 2015 PROAIR HFA 108 (90 BASE) MCG/ACT AERS ALBUTEROL SULFATE Inactive HYDROCODONE-ACETAMINOPHEN 5-325 MG TABS 1 to 2 four times a day as needed for pain use until can be seen by specialist HYDROCODONE- ACETAMINOPHEN 5-325 MG TABS 010660 HYDROCODONE-ACETAMINOPHEN Inactive TESSALON PERLES 100 MG CAP 1 to 2 tablets by mouth 3 times daily as needed for cough TESSALON PERLES 100 MG CAP 893036 BENZONATATE Inactive CHANTIX STARTING MONTH EARNEST 0.5 [...] Pain 2015 DICLOFENAC SODIUM 50 MG TBEC 153294 DICLOFENAC SODIUM Inactive TOPAMAX 50 MG ORAL TABS 1 tab twice daily TOPAMAX 50 MG ORAL TABS 948298 TOPIRAMATE Inactive VIIBRYD 10 MG ORAL TABS Take 1 tablet once a day VIIBRYD 10 MG ORAL TABS VILAZODONE HCL Inactive LEVOFLOXACIN 500 MG ORAL TABS po daily LEVOFLOXACIN 500 MG ORAL TABS 087631 LEVOFLOXACIN Inactive METHYLPREDNISOLONE 4 MG ORAL TABS po daily METHYLPREDNISOLONE 4 MG ORAL TABS 240959 METHYLPREDNISOLONE Inactive OXYCODONE HCL ER 10 MG ORAL T12A 1/2 tab by mouth every 4 hours prn OXYCODONE HCL ER 10 MG ORAL T12A OXYCODONE HCL Inactive FLAGYL 500 MG TAB 1 tablet by mouth bid FLAGYL 500 MG TAB 993566 METRONIDAZOLE Inactive MONISTAT 7 COMBO PACK WOODROW 100 & 2 MG-% (9GM) VAG KIT 1 applicatorful per vagina q pm x 7 MONISTAT 7 COMBO PACK WOODROW 100 & 2 MG-% (9GM) VAG KIT MICONAZOLE NITRATE Inactive BACTRIM DS 800-160 MG TABS 1 twice a day BACTRIM DS 800-160 MG TABS 729915 SULFAMETHOXAZOLE-TRIMETHOPRIM Inactive TRAMADOL HCL 50 MG TABS 1/2-1 tab TID PRN TRAMADOL HCL 50 MG TABS 244411 TRAMADOL HCL Inactive ABILIFY MAINTENA 400 MG IM SUSR 400mg injection every 26 days ABILIFY MAINTENA 400 MG IM SUSR ARIPIPRAZOLE Inactive KLONOPIN 1 MG ORAL TABS 1 tab po TID KLONOPIN 1 MG ORAL TABS 460129 CLONAZEPAM Inactive ADVAIR DISKUS 250-50 MCG/DOSE INH AEPB 1 puff twice a day for asthma ADVAIR DISKUS 250-50 MCG/DOSE INH AEPB FLUTICASONE- SALMETEROL Inactive BENADRYL 25 MG CAP 4 po at bedtime for insomnia BENADRYL 25 MG CAP DIPHENHYDRAMINE HCL Inactive CEFDINIR 300 MG CAPS by mouth twice a day CEFDINIR 300 MG CAPS 141770 CEFDINIR Inactive PREDNISONE 20 MG TAB 2 tabs daily for 3 days, 1 tab daily for 3 days, 1/2 tab daily for 2 days PREDNISONE 20 MG TAB 674555 PREDNISONE Inactive BACTRIM DS 800-160 MG TABS 1 po BID x 7 days BACTRIM DS 800-160 MG TABS 19820521 SULFAMETHOXAZOLE-TRIMETHOPRIM Inactive DIFLUCAN 150 MG TABS 1 pill every other day x 2 doses DIFLUCAN 150 MG TABS 671758 FLUCONAZOLE Inactive BACTRIM DS 800-160 MG TABS 1 pill by mouth twice daily BACTRIM DS 800-160 MG TABS 19820521 SULFAMETHOXAZOLE-TRIMETHOPRIM Inactive KEFLEX 500 MG CAP 1 po TID x 10 days KEFLEX 500 MG CAP 839242 CEPHALEXIN Inactive Advance Directives Directive Description Start [...] 369 10^3/MM^3 10*3/mm3 142-424 Lab Report: Chlamydia/GC [id number] - Lab chlamydia DNA probe NOT DETECTED NOT DETECTED Lab Report: Chlamydia/GC [id number] - Microbiology Neisseria gonorrhoeae DNA probe NOT DETECTED NOT DETECTED Lab Report: Comp. Metabolic Panel - Chemistry sodium, serum 142 mmol/L 278-275 4514/06/08 carbon dioxide, venous blood 27.6 mmol/L 21.0-32.0 potassium, serum 4.0 mmol/L 3.5-5.2 chloride, serum 105 mmol/L 98-107 blood glucose 95 mg/dL 65-110 urea nitrogen, blood 8 mg/dL 7-18 creatinine, serum 0.75 mg/dL 0.55-1.30 alanine aminotransferase (SGPT), serum 49 U/L 12-78 aspartate aminotransferase (SGOT), serum 28 U/L 15-37 calcium, serum 9.4 mg/dL 8.5-10.1 bilirubin, serum, total 0.30 mg/dL 0.00-1.00 sodium, serum 140 mmol/L 379-608 0436/08/08 carbon dioxide, venous blood 33.7 mmol/L 21.0-32.0 [...] mg/dL Encounters Code Encounter Date Provider Facility CPT-69370 Level 3 Est. Patient 10:40:11 MAMMOGRAPHY TECHNOLOGIST Ahmet Carbajal MD [facility] CPT-09744 Level 3 Est. Patient 15:07:06 MAMMOGRAPHY TECHNOLOGIST Neeraj Collins MD [facility] CPT-37744 Level 4 Est. Patient 14:45:00 MAMMOGRAPHY TECHNOLOGIST Ahmet Carbajal MD [facility] CPT-66133 Level 3 Est. Patient 13:59:59 CDT Luigi Martínez APRN [facility] CPT-06736 Level 3 Est. Patient 18:18:53 CDT Neeraj Collins MD [facility] CPT-99951 Level 3 Est. Patient 15:50:44 CDT Vishal Hui MD [facility] CPT-56048 Level 3 Est. Patient 11:36:17 CDT Ahmet Carbajal MD [facility] CPT-92672 Level 3 Est. Patient 13:29:16 CDT Vishal Hui MD [facility] CPT-89035 Level 3 Est. Patient 14:27:52 CDT Neeraj Collins MD [facility] CPT-42453 Level 3 Est. Patient 08:56:03 CDT Luigi Martínez [facility] CPT-86055 Level 4 Est. Patient 12:11:48 CDT Fabiola Johnson [facility] CPT-65388 Level 3 New Patient 16:53:37 CDT Albert Caldera MD [facility] CPT-73522 Level 3 Est. Patient 11:25:49 CDT Renzo Thornton DO [facility] CPT-26838 Level 3 Est. Patient 15:22:01 CDT Ahmet Carbajal MD [facility] CPT-76679 Level 4 Est. Patient 09:00:51 MAMMOGRAPHY TECHNOLOGIST Vishal Hui MD [facility] CPT-55551 Level 3 Est. Patient 11:37:33 MAMMOGRAPHY TECHNOLOGIST Vishal Hui MD [facility] CPT-03155 Level 3 Est. Patient 08:41:09 MAMMOGRAPHY TECHNOLOGIST Vishal Hui MD [facility] CPT-48409 Level 4 Est. Patient 10:19:35 MAMMOGRAPHY TECHNOLOGIST Vishal Hui MD [facility] CPT-93495 Level 3 Est. Patient 13:35:45 CDT Vishal Hui MD [facility] CPT-35672 Level 4 Est. Patient 10:08:37 CDT Vishal Hui MD [facility] CPT-72632 Level 3 Est. Patient 11:22:10 CDT Vishal Hui MD [facility] CPT-24624 Level 3 Est. Patient 11:03:32 CDT Sahara Rodriguez MD [facility]-18040 Level 3 Est. Patient 09:41:35 CDT Vishal Hui MD [facility] CPT-85599 Level 3 Est. Patient 12:00:41 CDT Neeraj Collins MD [facility]-53132 Level 3 Est. Patient 09:16:24 CDT Vishal Hui MD [facility]-56006 Level 4 Est. Patient 13:59:09 CDT Neeraj Collins MD [facility] CPT-51234 Level 3 Est. Patient 15:19:43 CDT Renzo Thornton DO [facility] CPT-98525 Level 3 Est. Patient 18:10:26 CDT Sahara Rodriguez MD [facility] CPT-14012 Level 3 Est. Patient 14:49:50 CDT Vishal Hui MD [facility] CPT-39941 Level 4 Est. Patient 18:41:46 CDT Neeraj Collins MD [facility] CPT-00546 Level 4 Est. Patient 09:18:38 MAMMOGRAPHY TECHNOLOGIST Vishal Hui MD [facility]-27826 Level 3 Est. Patient 14:43:55 MAMMOGRAPHY TECHNOLOGIST Vishal Hui MD [facility] CPT-43514 Level 3 Est. Patient 15:26:33 MAMMOGRAPHY TECHNOLOGIST Sahara Rodriguez MD [facility]-04315 Level 3 Est. Patient 10:32:14 MAMMOGRAPHY TECHNOLOGIST Vishal Hui MD [facility]-48721 Level 3 Est. Patient 15:12:52 MAMMOGRAPHY TECHNOLOGIST Vishal Hui MD [facility] CPT-03897 Level 4 Est. Patient 09:19:27 CDT Vishla Hui MD [facility] CPT-96825 Level 3 Est. Patient 15:53:00 CDT Renzo Thornton [facility] CPT-07870 Level 3 Est. Patient 15:50:30 CDT Renzo Thornton [facility] CPT-94157 Level 3 Est. Patient 16:55:24 CDT Vishal Hui MD [facility] Procedures Code Procedure Name Date Entry Date Standard Description CPT-G0439 [facility] Annual Wellness Exam 09:30:58 MAMMOGRAPHY TECHNOLOGIST CPT-28457 TSH - LAB USE ONLY 08:50:26 MAMMOGRAPHY TECHNOLOGIST CPT-27745 CBC - LAB USE ONLY 08:50:26 MAMMOGRAPHY TECHNOLOGIST CPT-78151 Venipuncture Draw Fee 08:50:26 MAMMOGRAPHY TECHNOLOGIST CPT-16258 Abx/Therapy Injection 17:34:30 MAMMOGRAPHY TECHNOLOGIST CPT-61824 Nexplanon Removal with Reinsertion 14:09:32 CDT CPT-J7307 Nexplanon (Implant) 14:09:32 CDT CPT-OV Office Visit 14:09:32 CDT CPT-11285 UA w micro - LAB USE ONLY 16:21:13 CDT CPT-38354 Wet Mount - LAB USE ONLY 16:21:13 CDT CPT-16152 First Vx - Ix admin for Medicare patients 14:37:47 CDT CPT-06872 Fluzone Preservative Free Intramuscular Suspension 14:37 :47 CDT CPT-53754 Abx/Therapy Injection 13:54:22 CDT CPT-80429 Abx/Therapy Injection 08:47:09 CDT CPT-44899 Abx/Therapy Injection 13:29:56 CDT CPT-99874 Abx/Therapy Injection 08:36:16 CDT CPT-11049 Wet Mount - LAB USE ONLY 17:44:58 CDT CPT-58137 UA w micro - LAB USE ONLY 17:44:58 CDT CPT-50460 CMP - LAB USE ONLY 17:44:58 CDT CPT-91275 Venipuncture Draw Fee 17:44:58 CDT CPT-20387 Cervical Min 4V - XRAY USE ONLY 09:01:40 CDT CPT-82205 Chest 2V Frontal and Lat - XRAY USE ONLY 11:06:31 CDT CPT-37455 EKG Trac and Interp - XRAY USE ONLY 11:31:43 CDT 08/26 CPT-J3420 Vitamin B12 1000mcg (Cyanocobalamin) 08:10:26 MAMMOGRAPHY TECHNOLOGIST 04/12 CPT-57451 Abx/Therapy Injection 08:10:26 MAMMOGRAPHY TECHNOLOGIST CPT-G0438 Initial Annual Wellness Exam 19:01:01 MAMMOGRAPHY TECHNOLOGIST CPT-J3420 Vitamin B12 1000mcg (Cyanocobalamin) 16:57:46 CDT 08/14 CPT-89904 Recombivax HB Injection Suspension 5 MCG/0.5ML 08:37:50 MAMMOGRAPHY TECHNOLOGIST CPT-67818 Immunization Single Admin 08:37:50 MAMMOGRAPHY TECHNOLOGIST CPT-J3420 Vitamin B12 1000mcg (Cyanocobalamin) 08:32:16 MAMMOGRAPHY TECHNOLOGIST 03/11 CPT-12104 Abx/Therapy Injection 08:32:16 MAMMOGRAPHY TECHNOLOGIST CPT-42444 Chest 2V Frontal and Lat 11:46:38 MAMMOGRAPHY TECHNOLOGIST CPT-75943 Venipuncture Draw Fee 09:12:45 MAMMOGRAPHY TECHNOLOGIST CPT-J3420 Vitamin B12 1000mcg (Cyanocobalamin) 08:50:15 MAMMOGRAPHY TECHNOLOGIST 02/08 CPT-84590 Abx/Therapy Injection 08:50:15 MAMMOGRAPHY TECHNOLOGIST CPT-Cryo Cryotherapy 10:19:35 MAMMOGRAPHY TECHNOLOGIST CPT-000 Give Appropriate Flu Vaccine 09:22:16 CDT CPT-J3420 Vitamin B12 1000mcg (Cyanocobalamin) 19:08:57 CDT 01/11 CPT-09941 Abx/Therapy Injection 19:08:57 CDT CPT-J3420 Vitamin B12 1000mcg (Cyanocobalamin) 08:19:08 CDT 12/11 CPT-41123 Abx/Therapy Injection 08:19:08 CDT CPT-J3420 Vitamin B12 1000mcg (Cyanocobalamin) 14:48:00 CDT 11/09 CPT-68452 Abx/Therapy Injection 14:47:59 CDT CPT-J3420 Vitamin B12 1000mcg (Cyanocobalamin) 08:34:04 CDT 10/09 CPT-47396 Abx/Therapy Injection 08:34:04 CDT CPT-J3420 Vitamin B12 1000mcg (Cyanocobalamin) 09:18:52 CDT 09/11 CPT-55680 Abx/Therapy Injection 09:18:52 CDT CPT-J3420 Vitamin B12 1000mcg (Cyanocobalamin) 08:35:44 CDT 09/04 CPT-11686 Abx/Therapy Injection 08:35:44 CDT CPT-75298 Immunization Single Admin 11:07:16 CDT CPT-40405 Hepatitis B adult IM 11:07:16 CDT CPT-J3420 Vitamin B12 1000mcg (Cyanocobalamin) 11:00:49 CDT 08/28 CPT-J1040 Depo Medrol 80 mg (Methyl Prednisolone Acetate) 11:00: 49 CDT CPT-07812 Abx/Therapy Injection 11:00:49 CDT CPT-J1040 Depo Medrol 80 mg (Methyl Prednisolone Acetate) 09:16: 23 CDT CPT-J3420 Vitamin B12 1000mcg (Cyanocobalamin) 08:27:05 CDT 08/20 CPT-52567 Abx/Therapy Injection 08:27:05 CDT CPT-98774 Recombivax HB Injection Suspension 5 MCG/0.5ML 10:00:41 CDT CPT-25771 Administration single or combination vaccine inc oral 10 :00:41 CDT CPT-11728 Sono transvag pelvis non OB uterus ovaries cervix 16:36: 57 CDT CPT-34079 LS spine comp w obliq 09:50:55 MAMMOGRAPHY TECHNOLOGIST CPT-83928 Abd compl w upright 09:50:55 MAMMOGRAPHY TECHNOLOGIST CPT-J1100 Decadron 4mg (Dexamethasone) 15:51:24 MAMMOGRAPHY TECHNOLOGIST CPT-J1030 Depo Medrol 40 mg (Methyl Prednisolone Acetate) 15:51: 24 MAMMOGRAPHY TECHNOLOGIST CPT-35157 Abx/Therapy Injection 15:51:24 MAMMOGRAPHY TECHNOLOGIST CPT-J1100 Decadron 4mg (Dexamethasone) 15:26:33 MAMMOGRAPHY TECHNOLOGIST CPT-J1030 Depo Medrol 40 mg (Methyl Prednisolone Acetate) 15:26: 33 MAMMOGRAPHY TECHNOLOGIST CPT-54179 Sono retroperitoneal complete kidneys and bladder 17:15: 30 CDT CPT-19597 Abd compl w upright 16:09:25 CDT CPT-J1100 Decadron 8mg (Dexamethasone) 17:07:57 CDT CPT-52079 Abx/Therapy Injection 17:07:57 CDT CPT-J1100 Decadron 8mg (Dexamethasone) 16:55:24 CDT CPT-88312 Chest 2V Frontal and Lat 16:32:44 CDT
--- OUTSIDE RECORDS SUMMARY | 2016-11-04 15:30 | XMS REPORT | Clinical Summary ---
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 Kimbrough CUTTER HELPER Dependence on other enabling machines and devices [...] 1 po TID x 10 days CEPHALEXIN 61713560921 No Longer Active Vishal Hui MD Active ABILIFY MAINTENA 400 MG IM SUSR Injection once per month ARIPIPRAZOLE 53416615647 Active Juliet Kimbrough APRN Active PREDNISONE 20 MG TAB 2 tabs daily for 4 days, 1 tab daily for 4 days, 1/2 tab daily for 4 days PREDNISONE 46885158348 Active Vishal Hui MD Active IMITREX 50 MG ORAL TABS 1/2 tab every 6 hours prn SUMATRIPTAN SUCCINATE 90062543753 Active Luigi Martínez APRN Active AMBIEN 5 MG ORAL TABS 1 tab at bedtime ZOLPIDEM TARTRATE 57769260383 Active Luigi Martínez APRN Active PROZAC 20 MG ORAL CAPS 1 tab daily FLUOXETINE HCL 94512579598 Active Luigi Martínez APRN Active ABILIFY 15 MG ORAL TABS 1 tab daily ARIPIPRAZOLE 07131928989 Active Luigi Martínez APRN Active MINIPRESS 2 MG CAPS 4 cap po at night PRAZOSIN HCL 83427830440 Active Luigi Martínez APRN Active TOPAMAX 50 MG ORAL TABS 1 tab twice daily TOPIRAMATE 86513939903 Active Vishal Hui MD Active SAPHRIS 5 MG SUBL 1 po bid ASENAPINE MALEATE 80241615064 No Longer Active Luigi Martínez APRN Active LATUDA 80 MG TABS Take one by mouth daily LURASIDONE HCL 02279557923 No Longer Active Luigi Martínez APRN Active AMLODIPINE BESYLATE 5 MG TABS 1 tablet by mouth daily AMLODIPINE BESYLATE 15594084301 No Longer Active Luigi Martínez APRN Active AMITRIPTYLINE HCL 100 MG TAB one at hs AMITRIPTYLINE HCL 57152820930 No Longer Active Vishal Hui MD Active TRAZODONE HCL 100 MG TAB take 1 at bedtime TRAZODONE HCL 47602024424 No Longer Active Vishal Hui MD Active VYVANSE 40 MG CAPS 1 daily, LISDEXAMFETAMINE DIMESYLATE 17353000849 No Longer Active Vishal Hui MD Active IBUPROFEN 600 MG TAB 1 po TID PRN IBUPROFEN 81755846092 No Longer Active Vishal Hui MD Active MIRALAX PACK 1 po qd PRN Constipation POLYETHYLENE GLYCOL 3350 55758830399 Active Vishal Hui MD Active PROZAC 20 MG CAP Take one by mouth daily FLUOXETINE HCL 41536465310 No Longer Active Vishal Hui MD Active ZOFRAN 4 MG TABS 1 po q6hr PRN Nausea ONDANSETRON HCL Active Vishal Hui MD Active BACTRIM DS 800-160 MG TABS 1 pill by mouth twice daily SULFAMETHOXAZOLE-TRIMETHOPRIM 27170783293 No Longer Active Sahara Rodriguez MD PhD Active DIFLUCAN 150 MG TAB 1 tablet by mouth daily FLUCONAZOLE 50984140731 No Longer Active Vishal Hui MD Active TIZANIDINE HCL 4 MG TABS 1 po q6hr PRN Muscle Spasm/Back Pain TIZANIDINE HCL 81682650179 Active Luigi Martínez APRN Active CLINDAMYCIN HCL 150 MG CAPS 1 four times a day CLINDAMYCIN HCL 12685875112 No Longer Active Neeraj Collins MD Active KEFLEX 500 MG ORAL CAPS 1 cap QID by mouth CEPHALEXIN 46529856620 No Longer Active Neeraj Collins MD Active DIFLUCAN 150 MG TABS 1 pill every other day x 2 doses FLUCONAZOLE 82944388441 No Longer Active Sahara Rodriguez MD PhD Active MELATONIN 3 MG CAPS 2 po q hs MELATONIN 05655473910 No Longer Active Sahara Rodriguez MD PhD Active MULTIVITAMINS CAPS Take one by mouth daily MULTIPLE VITAMIN 73656428146 No Longer Active Sahara Rodriguez MD PhD Active BACTRIM DS 800-160 MG TAB 1 tab by mouth twice daily TRIMETHOPRIM-SULFAMETHOXAZOLE 96584937997 No Longer Active Sahara Rodriguez MD PhD Active [facility] PROBIOTIC ORAL CHEW 2 daily po PROBIOTIC PRODUCT 45909082508 No Longer Active Sahara Rodriguez MD PhD Active BACTRIM DS 800-160 MG TABS 1 po BID x 7 days SULFAMETHOXAZOLE-TRIMETHOPRIM 47620064024 No Longer Active Vishal Hui MD Active CHANTIX STARTING MONTH EARNEST 0.5 MG X 11 & 1 MG X 42 TABS 0.5mg daily for 3 days , then 0.5mg BID for 4 days, then 1mg BID VARENICLINE TARTRATE 56028338509 No Longer Active TAMARA Gray Active METOPROLOL TARTRATE 50 MG TAB 1 po bid METOPROLOL TARTRATE 77052823364 Active Vishal Hui MD Active VERAPAMIL HCL CR 120 MG TAB CR 1 po bid VERAPAMIL HCL 46523082854 No Longer Active Vishal Hui MD Active METOPROLOL SUCCINATE 50 MG TB24 1 tablet by mouth daily METOPROLOL SUCCINATE 50382138754 No Longer Active Vishal Hui MD Active TRAMADOL HCL 50 MG TABS 1-2 po TID PRN Pain TRAMADOL HCL 72740919422 Active Vishal Hui MD Active SAPHRIS 10 MG SUBL 1 tab po bid ASENAPINE MALEATE 91809031236 No Longer Active Vishal Hui MD Active LISINOPRIL 20 MG TABS 1 tab po qd LISINOPRIL 09654040089 No Longer Active Vishal Hui MD Active BENADRYL 25 MG CAP 2 po tid prn anxiety DIPHENHYDRAMINE HCL 14784285534 Active Vishal Hui MD Active LATUDA 20 MG TABS Take one by mouth daily LURASIDONE HCL 03571107736 No Longer Active Vishal Hui MD Active TRAZODONE HCL 50 MG TABS 1/2 tab po qd prn for anxiety TRAZODONE HCL 22816007949 No Longer Active Vishal Hui MD Active PIROXICAM 20 MG CAPS 1 cap po qd PRN Pain PIROXICAM 05265443061 Active Vishal Hui MD Active OMEPRAZOLE 20 MG TBEC 1 po q a.m. 30min prior to first food intake OMEPRAZOLE 70047841541 Active Vishal Hui MD Active RANITIDINE HCL 150 MG CAPS 1 twice a day RANITIDINE HCL 35834919574 Active Vishal Hui MD Active LINZESS 290 MCG CAPS Take one by mouth daily LINACLOTIDE 01912180304 No Longer Active Vishal Hui MD Active SAPHRIS 5 MG SUBL 1 tab po qd ASENAPINE MALEATE 33294508211 No Longer Active Vishal Hui MD Active ZALEPLON 10 MG CAPS 1 cap po every other night ZALEPLON 24962448315 No Longer Active Vishal Hui MD Active LYRICA 50 MG CAPS 1 tab po TID PREGABALIN 27931094951 No Longer Active Vishal Hui MD Active LORATADINE 10 MG TABS 1 tab po qd LORATADINE 01995081281 No Longer Active Vishal Hui MD Active VERAPAMIL HCL ER 180 MG CR-TABS 1 tab po bid VERAPAMIL HCL 98812672232 No Longer Active Vishal Hui MD Active MIRALAX POWD 1 capfull once daily POLYETHYLENE GLYCOL 3350 07643275380 No Longer Active Vishal Hui MD Active PREDNISONE 20 MG TABS 1 tab po qd PREDNISONE 36474005942 No Longer Active Renzo Thornton DO Active LEVOFLOXACIN 500 MG TABS 1 tab po qd LEVOFLOXACIN 04583563038 No Longer Active Renzo Thornton DO Active BUSPIRONE HCL 15 MG TABS 1 tab po TID BUSPIRONE HCL 65956937439 No Longer Active Renzo Thornton DO Active BENZTROPINE MESYLATE 1 MG TABS 1 tab po qd BENZTROPINE MESYLATE 89169257300 No Longer Active Renzo Thornton DO Active ATENOLOL 25 MG TABS 1 tab po qd ATENOLOL 76452390649 No Longer Active Renzo Thornton DO Active ESCITALOPRAM OXALATE 20 MG TABS 1 tab po qd ESCITALOPRAM OXALATE 19514542162 No Longer Active Renzo Thornton DO Active ADVAIR DISKUS 250-50 MCG/DOSE AEPB 1 puff BID FLUTICASONE-SALMETEROL 78677093348 No Longer Active Renzo Thornton DO Active PREDNISONE 20 MG TAB 2 tabs daily for 3 days, 1 tab daily for 3 days, 1/2 tab daily for 2 days PREDNISONE 13550809849 No Longer Active Vishal Hui MD Active CEFDINIR 300 MG CAPS by mouth twice a day CEFDINIR 87342944433 No Longer Active Vishal Hui MD Active LANSOPRAZOLE 30 MG CPDR 1 cap po qd LANSOPRAZOLE 22778924138 No Longer Active Vishal Hui MD Active BACLOFEN 20 MG TABS 1 tab po tid BACLOFEN 16133443701 No Longer Active Vishal Hui MD Active ADVAIR DISKUS 250-50 MCG/DOSE AEPB 1 puff BID ADVAIR DISKUS 250-50 MCG/DOSE AEPB FLUTICASONE-SALMETEROL Inactive ESCITALOPRAM OXALATE 20 MG TABS 1 tab po qd ESCITALOPRAM OXALATE 20 MG TABS 445614 ESCITALOPRAM OXALATE Inactive ATENOLOL 25 MG TABS 1 tab po qd ATENOLOL 25 MG TABS 874094 ATENOLOL Inactive BENZTROPINE MESYLATE 1 MG TABS 1 tab po qd BENZTROPINE MESYLATE 1 MG TABS 681372 BENZTROPINE MESYLATE Inactive BUSPIRONE HCL 15 MG TABS 1 tab po TID BUSPIRONE HCL 15 MG TABS 741929 BUSPIRONE HCL Inactive LEVOFLOXACIN 500 MG TABS 1 tab po qd LEVOFLOXACIN 500 MG TABS 185931 LEVOFLOXACIN Inactive PREDNISONE 20 MG TABS 1 tab po qd PREDNISONE 20 MG TABS 698801 PREDNISONE Inactive MIRALAX POWD 1 capfull once daily MIRALAX POWD 870599 POLYETHYLENE GLYCOL 3350 Inactive VERAPAMIL HCL ER 180 MG CR-TABS 1 tab po bid VERAPAMIL HCL ER 180 MG CR-TABS VERAPAMIL HCL Inactive LORATADINE 10 MG TABS 1 tab po qd LORATADINE 10 MG TABS 881056 LORATADINE Inactive LYRICA 50 MG CAPS 1 tab po TID LYRICA 50 MG CAPS PREGABALIN Inactive ZALEPLON 10 MG CAPS 1 cap po every other night ZALEPLON 10 MG CAPS 884920 ZALEPLON Inactive SAPHRIS 5 MG SUBL 1 tab po qd SAPHRIS 5 MG SUBL ASENAPINE MALEATE Inactive TRAZODONE HCL 50 MG TABS 1/2 tab po qd prn for anxiety TRAZODONE HCL 50 MG TABS 284737 TRAZODONE HCL Inactive LATUDA 20 MG TABS Take one by mouth daily LATUDA 20 MG TABS LURASIDONE HCL Inactive LISINOPRIL 20 MG TABS 1 tab po qd LISINOPRIL 20 MG TABS 084816 LISINOPRIL Inactive SAPHRIS 10 MG SUBL 1 [...] twice daily BACTRIM DS 800-160 MG TAB 453467 TRIMETHOPRIM-SULFAMETHOXAZOLE Inactive MULTIVITAMINS CAPS Take one by mouth daily MULTIVITAMINS CAPS MULTIPLE VITAMIN Inactive MELATONIN 3 MG CAPS 2 po q hs MELATONIN 3 MG CAPS 134593 MELATONIN Inactive KEFLEX 500 MG ORAL CAPS 1 cap QID by mouth KEFLEX 500 MG ORAL CAPS 098278 CEPHALEXIN Inactive CLINDAMYCIN HCL 150 MG CAPS 1 four times a day CLINDAMYCIN HCL 150 MG CAPS 19740326 CLINDAMYCIN HCL Inactive DIFLUCAN 150 MG TAB 1 tablet by mouth daily DIFLUCAN 150 MG TAB 345042 FLUCONAZOLE Inactive PROZAC 20 MG CAP Take one by mouth daily PROZAC 20 MG CAP 429290 FLUOXETINE HCL Inactive IBUPROFEN 600 MG TAB 1 po TID PRN IBUPROFEN 600 MG TAB 976700 IBUPROFEN Inactive VYVANSE 40 MG CAPS 1 daily, VYVANSE 40 MG CAPS LISDEXAMFETAMINE DIMESYLATE Inactive TRAZODONE HCL 100 MG TAB take 1 at bedtime TRAZODONE HCL 100 MG TAB 101800 TRAZODONE HCL Inactive AMITRIPTYLINE HCL 100 MG TAB one at hs AMITRIPTYLINE HCL 100 MG TAB 752828 AMITRIPTYLINE HCL Inactive AMLODIPINE BESYLATE 5 MG TABS 1 tablet by mouth daily AMLODIPINE BESYLATE 5 MG TABS 689951 AMLODIPINE BESYLATE Inactive LATUDA 80 MG TABS Take one by mouth daily LATUDA 80 MG TABS LURASIDONE HCL Inactive SAPHRIS 5 MG SUBL 1 po bid SAPHRIS 5 MG SUBL ASENAPINE MALEATE Inactive CEFDINIR 300 MG CAPS by mouth twice a day CEFDINIR 300 MG CAPS 454489 CEFDINIR Inactive PREDNISONE 20 MG TAB 2 tabs daily for 3 days, 1 tab daily for 3 days, 1/2 tab daily for 2 days PREDNISONE 20 MG TAB 840439 PREDNISONE Inactive BACTRIM DS 800-160 MG TABS 1 po BID x 7 days BACTRIM DS 800-160 MG TABS 19820521 SULFAMETHOXAZOLE-TRIMETHOPRIM Inactive DIFLUCAN 150 MG TABS 1 pill every other day x 2 doses DIFLUCAN 150 MG TABS 102311 FLUCONAZOLE Inactive BACTRIM DS 800-160 MG TABS 1 pill by mouth twice daily BACTRIM DS 800-160 MG TABS 19820521 SULFAMETHOXAZOLE-TRIMETHOPRIM Inactive KEFLEX 500 MG CAP 1 po TID x 10 days KEFLEX 500 MG CAP 678872 CEPHALEXIN Inactive Advance Directives Directive Description Start [...] % 11.6-14.8 platelet count 394 10^3/MM^3 10*3/mm3 585-042 4665/01/11 leukocyte count, blood 13.8 10^3/MM^3 10*3/mm3 4.6-10.2 [...] Panel - Chemistry sodium, serum 139 mmol/L 650-188 6191/12/03 carbon dioxide, venous blood 28.5 mmol/L 21.0-32.0 [...] 5.5 % 4.3-6.0 cholesterol, serum 159 mg/dL 568-799 5364/12/03 triglyceride, serum, fasting 118 mg/dL 30-200 HDL [...] Panel - Chemistry sodium, serum 139 mmol/L 056-375 3698/12/22 carbon dioxide, venous blood 26.8 mmol/L 21.0-32.0 potassium, serum 4.2 mmol/L 3.5-5.2 chloride, serum 103 mmol/L 98-107 blood glucose 115 mg/dL 65-110 urea nitrogen, blood 20 mg/dL 7-18 creatinine, serum 0.90 mg/dL 0.55-1.30 alanine aminotransferase (SGPT), serum 38 U/L 12-78 aspartate aminotransferase (SGOT), serum 19 U/L 15-37 calcium, serum 8.6 mg/dL 8.5-10.1 bilirubin, serum, total 0.30 mg/dL 0.00-1.00 sodium, serum 139 mmol/L 206-214 6008/01/11 carbon dioxide, venous blood 26.6 mmol/L 21.0-32.0 [...] Rate - Chemistry sodium, serum 139 mmol/L 289-107 2571/12/11 carbon dioxide, venous blood 25.4 mmol/L 21.0-32.0 [...] 5.0-8.5 Encounters Code Encounter Date Provider Facility CPT-26300 Level 4 Est. Patient 09:00:51 REHAB DEPARTMENT MANAGER Vishal Hui MD [facility] CPT-45091 Level 3 Est. Patient 11:37:33 REHAB DEPARTMENT MANAGER Vishal Hui MD [facility] CPT-78600 Level 3 Est. Patient 08:41:09 REHAB DEPARTMENT MANAGER Vishal Hui MD [facility] CPT-82716 Level 4 Est. Patient 10:19:35 REHAB DEPARTMENT MANAGER Vishal Hui MD [facility] CPT-36929 Level 3 Est. Patient 13:35:45 CDT Vishal Hui MD [facility] CPT-04679 Level 4 Est. Patient 10:08:37 CDT Vishal Hui MD [facility] CPT-29542 Level 3 Est. Patient 11:22:10 CDT Vishal Hui MD [facility] CPT-46047 Level 3 Est. Patient 11:03:32 CDT Sahara Rodriguez MD PhD [facility] CPT-36941 Level 3 Est. Patient 09:41:35 CDT Vishal Hui MD [facility] CPT-69402 Level 3 Est. Patient 12:00:41 CDT Neeraj Collins MD [facility] CPT-78068 Level 3 Est. Patient 09:16:24 CDT Vishal Hui MD [facility] CPT-80730 Level 4 Est. Patient 13:59:09 CDT Neeraj Collins MD [facility] CPT-70028 Level 3 Est. Patient 15:19:43 CDT Renzo Thornton [facility] CPT-58171 Level 3 Est. Patient 18:10:26 CDT Sahara Rodriguez MD PhD [facility] CPT-03274 Level 3 Est. Patient 14:49:50 CDT Vishal Hui MD [facility] CPT-00150 Level 4 Est. Patient 18:41:46 CDT Neeraj Collins MD [facility] CPT-89839 Level 4 Est. Patient 09:18:38 REHAB DEPARTMENT MANAGER Vishal Hui MD [facility] CPT-10893 Level 3 Est. Patient 14:43:55 REHAB DEPARTMENT MANAGER Vishal Hui MD [facility] CPT-50239 Level 3 Est. Patient 15:26:33 REHAB DEPARTMENT MANAGER Sahara Rodriguez MD PhD [facility] CPT-68101 Level 3 Est. Patient 10:32:14 REHAB DEPARTMENT MANAGER Vishal Hui MD [facility] CPT-48803 Level 3 Est. Patient 15:12:52 REHAB DEPARTMENT MANAGER Vishal Hui MD [facility] CPT-53450 Level 4 Est. Patient 09:19:27 CDT Vishal Hui MD [facility] CPT-01150 Level 3 Est. Patient 15:53:00 CDT Renzo Thornton [facility] CPT-20302 Level 3 Est. Patient 15:50:30 CDT Renzo Thornton [facility] CPT-85018 Level 3 Est. Patient 16:55:24 CDT Vishal Hui MD [facility] Procedures Code Procedure Name Date Entry Date Standard Description CPT-J3420 Vitamin B12 1000mcg (Cyanocobalamin) 08:10:26 REHAB DEPARTMENT MANAGER 04/12 CPT-23074 Abx/Therapy Injection 08:10:26 REHAB DEPARTMENT MANAGER CPT-G0438 Initial Annual Wellness Exam 19:01:01 REHAB DEPARTMENT MANAGER CPT-J3420 Vitamin B12 1000mcg (Cyanocobalamin) 16:57:46 CDT 08/14 CPT-31337 Recombivax HB Injection Suspension 5 MCG/0.5ML 08:37:50 REHAB DEPARTMENT MANAGER CPT-92797 Immunization Single Admin 08:37:50 REHAB DEPARTMENT MANAGER CPT-J3420 Vitamin B12 1000mcg (Cyanocobalamin) 08:32:16 REHAB DEPARTMENT MANAGER 03/11 CPT-39138 Abx/Therapy Injection 08:32:16 REHAB DEPARTMENT MANAGER CPT-20100 Chest 2V Frontal and Lat 11:46:38 REHAB DEPARTMENT MANAGER CPT-09952 Venipuncture Draw Fee 09:12:45 REHAB DEPARTMENT MANAGER CPT-J3420 Vitamin B12 1000mcg (Cyanocobalamin) 08:50:15 REHAB DEPARTMENT MANAGER 02/08 CPT-56550 Abx/Therapy Injection 08:50:15 REHAB DEPARTMENT MANAGER CPT-Cryo Cryotherapy 10:19:35 REHAB DEPARTMENT MANAGER CPT-000 Give Appropriate Flu Vaccine 09:22:16 CDT CPT-J3420 Vitamin B12 1000mcg (Cyanocobalamin) 19:08:57 CDT 01/11 CPT-88425 Abx/Therapy Injection 19:08:57 CDT CPT-J3420 Vitamin B12 1000mcg (Cyanocobalamin) 08:19:08 CDT 12/11 CPT-53949 Abx/Therapy Injection 08:19:08 CDT CPT-J3420 Vitamin B12 1000mcg (Cyanocobalamin) 14:48:00 CDT 11/09 CPT-99184 Abx/Therapy Injection 14:47:59 CDT CPT-J3420 Vitamin B12 1000mcg (Cyanocobalamin) 08:34:04 CDT 10/09 CPT-67463 Abx/Therapy Injection 08:34:04 CDT CPT-J3420 Vitamin B12 1000mcg (Cyanocobalamin) 09:18:52 CDT 09/11 CPT-07903 Abx/Therapy Injection 09:18:52 CDT CPT-J3420 Vitamin B12 1000mcg (Cyanocobalamin) 08:35:44 CDT 09/04 CPT-74829 Abx/Therapy Injection 08:35:44 CDT CPT-75947 Immunization Single Admin 11:07:16 CDT CPT-54581 Hepatitis B adult IM 11:07:16 CDT CPT-J3420 Vitamin B12 1000mcg (Cyanocobalamin) 11:00:49 CDT 08/28 CPT-J1040 Depo Medrol 80 mg (Methyl Prednisolone Acetate) 11:00: 49 CDT CPT-28651 Abx/Therapy Injection 11:00:49 CDT CPT-J1040 Depo Medrol 80 mg (Methyl Prednisolone Acetate) 09:16: 23 CDT CPT-J3420 Vitamin B12 1000mcg (Cyanocobalamin) 08:27:05 CDT 08/20 CPT-33923 Abx/Therapy Injection 08:27:05 CDT CPT-02840 Recombivax HB Injection Suspension 5 MCG/0.5ML 10:00:41 CDT CPT-31374 Administration single or combination vaccine inc oral 10 :00:41 CDT CPT-07526 Sono transvag pelvis non OB uterus ovaries cervix 16:36: 57 CDT CPT-06568 LS spine comp w obliq 09:50:55 REHAB DEPARTMENT MANAGER CPT-67081 Abd compl w upright 09:50:55 REHAB DEPARTMENT MANAGER CPT-J1100 Decadron 4mg (Dexamethasone) 15:51:24 REHAB DEPARTMENT MANAGER CPT-J1030 Depo Medrol 40 mg (Methyl Prednisolone Acetate) 15:51: 24 REHAB DEPARTMENT MANAGER CPT-13740 Abx/Therapy Injection 15:51:24 REHAB DEPARTMENT MANAGER CPT-J1100 Decadron 4mg (Dexamethasone) 15:26:33 REHAB DEPARTMENT MANAGER CPT-J1030 Depo Medrol 40 mg (Methyl Prednisolone Acetate) 15:26: 33 REHAB DEPARTMENT MANAGER CPT-33868 Sono retroperitoneal complete kidneys and bladder 17:15: 30 CDT CPT-53092 Abd compl w upright 16:09:25 CDT CPT-J1100 Decadron 8mg (Dexamethasone) 17:07:57 CDT CPT-56837 Abx/Therapy Injection 17:07:57 CDT CPT-J1100 Decadron 8mg (Dexamethasone) 16:55:24 CDT CPT-08421 Chest 2V Frontal and Lat 16:32:44 CDT
--- OUTSIDE RECORDS SUMMARY | 2016-11-04 15:32 | XMS REPORT | Clinical Summary ---
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 V72.31 Active Suzan Boo [...] Inactive Vishal Hui MD Fatigue ICD-780.79 Inactive iVshal Hui MD 2014 Vaginitis, candidal ICD-112.1 Inactive [...] then 1 daily for 4 days AZITHROMYCIN 45296318600 Active Suzan Boo APRN Active PREDNISONE 10 MG TABS 2 daily for 5 days then 1 daily for 5 days PREDNISONE 70901138797 Active Suzan Boo APRN Active CLONAZEPAM 1 MG ORAL TABS 1 twice a day and an additional 1 tablet every other day as needed for pseudoseizures or anxiety CLONAZEPAM 77416180217 Active Ahmet Carbajal MD Active HYDROCODONE-ACETAMINOPHEN 5-325 MG ORAL TABS 1 tab two times a day HYDROCODONE-ACETAMINOPHEN 20291259078 No Longer Active Ahmet Carbajal MD Active LAMICTAL 100 MG ORAL TABS 1 tab 2 times qd. LAMOTRIGINE 69552415734 Active Ahmet Carbajal MD Active PREDNISONE 20 MG TABS 2 daily for 5 days then 1 daily for 5 days PREDNISONE 34811014468 No Longer Active Ahmet Carbajal MD Active FLUTICASONE PROPIONATE 50 MCG/ACT SUSP 1 to 2 sprays each nostril daily for allergies FLUTICASONE PROPIONATE 11436711608 Active Tila Valenzuela Active GUAIFENESIN-CODEINE 100-10 MG/5ML SYRP 5ml every 4 to 6 hours as needed for cough GUAIFENESIN-CODEINE 93297913878 Active Ahmet Carbajal MD Active BENADRYL 25 MG CAP 4 po at bedtime for insomnia DIPHENHYDRAMINE HCL 03557233508 No Longer Active Ahmet Carbajal MD Active ADVAIR DISKUS 250-50 MCG/DOSE INH AEPB 1 puff twice a day for asthma FLUTICASONE-SALMETEROL 48180148556 No Longer Active Ahmet Carbajal MD Active KLONOPIN 1 MG ORAL TABS 1 tab po TID CLONAZEPAM 53800304220 No Longer Active Ahmet Carbajal MD Active ABILIFY MAINTENA 400 MG IM SUSR 400mg injection every 26 days ARIPIPRAZOLE 97964195791 No Longer Active Ahmet Carbajal MD Active HALOPERIDOL 10 MG ORAL TABS 1 tab q.d HALOPERIDOL 58669594861 Active Ahmet Carbajal MD Active ASPIRIN 325 MG ORAL TABS 1 tab q.d ASPIRIN 78909949799 Active Ahmet Carbajal MD Active TRAMADOL HCL 50 MG TABS 1/2-1 tab TID PRN TRAMADOL HCL 70972368727 No Longer Active Ahmet Carbajal MD Active BACTRIM DS 800-160 MG TABS 1 twice a day SULFAMETHOXAZOLE- TRIMETHOPRIM 85868860670 No Longer Active Ahmet Carbajal MD Active PROAIR HFA 108 (90 BASE) MCG/ACT AERS 2 puffs four times a day as needed 2015 ALBUTEROL SULFATE 98442344820 Active Ahmet Carbajal MD Active EQ NICOTINE 21 MG/24HR TRANS PT24 Apply daily to stop smoking NICOTINE 27009681536 Active Ahmet Carbajal MD Active MONISTAT 7 COMBO PACK WOODROW 100 & 2 MG-% (9GM) VAG KIT 1 applicatorful per vagina q pm x 7 MICONAZOLE NITRATE 38331180671 No Longer Active Ahmet Carbajal MD Active FLAGYL 500 MG TAB 1 tablet by mouth bid METRONIDAZOLE 66762872636 No Longer Active Ahmet Carbajal MD Active OXYCODONE HCL ER 10 MG ORAL T12A 1/2 tab by mouth every 4 hours prn OXYCODONE HCL 61737804238 No Longer Active Ahmet Carbajal MD Active METHYLPREDNISOLONE 4 MG ORAL TABS po daily METHYLPREDNISOLONE 85342766610 No Longer Active Ahmet Carbajal MD Active LEVOFLOXACIN 500 MG ORAL TABS po daily LEVOFLOXACIN 63156553615 No Longer Active Ahmet Carbajal MD Active VIIBRYD 10 MG ORAL TABS Take 1 tablet once a day VILAZODONE HCL 64538138064 No Longer Active Ahmet Carbajal MD Active TOPAMAX 50 MG ORAL TABS 1 tab twice daily TOPIRAMATE 70062280492 No Longer Active Ahmet Carbajal MD Active DICLOFENAC SODIUM 50 MG TBEC 1 tablet by mouth four times daily PRN Pain 2015 DICLOFENAC SODIUM 50102628476 No Longer Active Ahmet Carbajal MD Active ADZENYS XR-ODT 6.3 MG ORAL TBED 1 tab po daily for ADHD AMPHETAMINE 59797141403 No Longer Active Ahmet Carbajal MD Active CHANTIX 1 MG TABS 1 twice a day to help quit smoking VARENICLINE TARTRATE 69716562690 No Longer Active Dipika Burgos MD Active CHANTIX STARTING MONTH EARNEST 0.5 MG X 11 & 1 MG X 42 TABS take as directed 2015 VARENICLINE TARTRATE 06729207626 No Longer Active Dipika Burgos MD Active TESLIZ PERLES 100 MG CAP 1 to 2 tablets by mouth 3 times daily as needed for cough BENZONATATE 42348675719 No Longer Active Luigi Martínez APRN Active IMITREX 50 MG ORAL TABS 0.5 po x 1 PRN Headache. May repeat dose x 1 in 2 hours if needed SUMATRIPTAN SUCCINATE 04213915870 Active Ahmet Carbajal MD Active HYDROCODONE-ACETAMINOPHEN 5-325 MG TABS 1 to 2 four times a day as needed for pain use until can be seen by specialist HYDROCODONE- ACETAMINOPHEN 68534537716 No Longer Active Vishal Hui MD Active PROAIR HFA 108 (90 BASE) MCG/ACT AERS 2 puffs four times a day as needed 2015 ALBUTEROL SULFATE 72880931506 No Longer Active Vishal Hui MD Active PREDNISONE 20 MG TABS 2 daily for 5 days then 1 daily for 5 days PREDNISONE 35969494428 No Longer Active Vishal Hui MD Active ZITHROMAX Z-EARNEST 250 MG TABS 2 today and then 1 daily for 4 days AZITHROMYCIN 39339832846 No Longer Active Vishal Hui MD Active DICLOFENAC POTASSIUM TABS Take 1 tablet twice a day (pt. is not sure of the dose.) DICLOFENAC POTASSIUM TABS 84014215575 No Longer Active Vishal Hui MD Active VERAPAMIL HCL ER 120 MG ORAL CR-TABS Take 1 tablet by mouth twice a day. VERAPAMIL HCL 52750596937 Active Vishal Hui MD Active FLAGYL 500 MG TAB 1 tablet by mouth bid METRONIDAZOLE 18522771003 No Longer Active Vishal Hui MD Active FLUTICASONE PROPIONATE 50 MCG/ACT SUSP 2 sprays each nostril daily before bed. FLUTICASONE PROPIONATE 82318356820 Active Fabiola Johnson APRN Active VALIUM 5 MG TAB Take 1-2 tablets daily DIAZEPAM 82394788835 No Longer Active Fabiola Johnson APRN Active METOPROLOL TARTRATE 25 MG ORAL TABS 1/2 tablet twice daily for heart rate and blood pressure METOPROLOL TARTRATE 46397419181 No Longer Active Fabiola Johnson APRN Active MIRALAX ORAL POWD 17GMS DAILY IN WATER POLYETHYLENE GLYCOL 3350 56868159802 Active Bertha Kofi TAMARA Active MIRALAX PACK 1 po qd PRN Constipation POLYETHYLENE GLYCOL 3350 94457053112 No Longer Active Ahmet Carbajal MD Active MINIPRESS 2 MG CAPS 4 cap po at night PRAZOSIN HCL 24703512519 No Longer Active Ahmet Carbajal MD Active PIROXICAM 20 MG CAPS 1 cap po qd PRN Pain PIROXICAM 23233138649 No Longer Active Ahmet Carbajal MD Active TRAMADOL HCL 50 MG TABS 1-2 po TID PRN Pain TRAMADOL HCL 10923081991 No Longer Active Ahmet Carbajal MD Active METOPROLOL TARTRATE 50 MG TAB 1 po bid METOPROLOL TARTRATE 58408811564 No Longer Active Ahmet Carbajal MD Active ABILIFY 15 MG ORAL TABS 1 tab daily ARIPIPRAZOLE 08924115922 No Longer Active Ahmet Carbajal MD Active PROZAC 20 MG ORAL CAPS 1 tab daily FLUOXETINE HCL 88541710108 No Longer Active Ahmet Carbajal MD Active AMBIEN 5 MG ORAL TABS 1 tab at bedtime ZOLPIDEM TARTRATE 65007543316 No Longer Active Ahmet Carbajal MD Active PREDNISONE 20 MG TAB 2 tabs daily for 4 days, 1 tab daily for 4 days, 1/2 tab daily for 4 days PREDNISONE 11497038030 No Longer Active Ahmet Carbajal MD Active KEFLEX 500 MG CAP 1 po TID x 10 days CEPHALEXIN 62876956120 No Longer Active Vishal Hui MD Active SAPHRIS 5 MG SUBL 1 po bid ASENAPINE MALEATE 66328568905 No Longer Active Luigi Martínez APRN Active LATUDA 80 MG TABS Take one by mouth daily LURASIDONE HCL 75386369104 No Longer Active Luigi Martínez APRN Active AMLODIPINE BESYLATE 5 MG TABS 1 tablet by mouth daily AMLODIPINE BESYLATE 47972302276 No Longer Active Luigi Martínez INDUSTRIAL ORDER CLERK Active AMITRIPTYLINE HCL 100 MG TAB one at hs AMITRIPTYLINE HCL 39943956617 No Longer Active Vishal Hui MD Active TRAZODONE HCL 100 MG TAB take 1 at bedtime TRAZODONE HCL 63944768153 No Longer Active Visahl Hui MD Active VYVANSE 40 MG CAPS 1 daily, LISDEXAMFETAMINE DIMESYLATE 42190315779 No Longer Active Vishal Hui MD Active IBUPROFEN 600 MG TAB 1 po TID PRN IBUPROFEN 04558358664 No Longer Active Vishal Hui MD Active PROZAC 20 MG CAP Take one by mouth daily FLUOXETINE HCL 16926099768 No Longer Active Vishal Hui MD Active ZOFRAN 4 MG TABS 1 po q6hr PRN Nausea ONDANSETRON HCL Active Vishal Hui MD Active BACTRIM DS 800-160 MG TABS 1 pill by mouth twice daily SULFAMETHOXAZOLE-TRIMETHOPRIM 33724057402 No Longer Active Sahara Rodriguez MD PhD Active DIFLUCAN 150 MG TAB 1 tablet by mouth daily FLUCONAZOLE 75708509404 No Longer Active Vishal uHi MD Active TIZANIDINE HCL 4 MG TABS 1 po q6hr PRN Muscle Spasm/Back Pain TIZANIDINE HCL 50250516084 Active Vishal Hui MD Active CLINDAMYCIN HCL 150 MG CAPS 1 four times a day CLINDAMYCIN HCL 84451651770 No Longer Active Neeraj Collins MD Active KEFLEX 500 MG ORAL CAPS 1 cap QID by mouth CEPHALEXIN 64523005608 No Longer Active Neeraj Collins MD Active DIFLUCAN 150 MG TABS 1 pill every other day x 2 doses FLUCONAZOLE 97696867463 No Longer Active Sahara Rodriguez MD PhD Active MELATONIN 3 MG CAPS 2 po q hs MELATONIN 40562708537 No Longer Active Sahara Rodriguez MD PhD Active MULTIVITAMINS CAPS Take one by mouth daily MULTIPLE VITAMIN 72338342908 No Longer Active Sahara Rodriguez MD PhD Active BACTRIM DS 800-160 MG TAB 1 tab by mouth twice daily TRIMETHOPRIM-SULFAMETHOXAZOLE 01238853668 No Longer Active Sahara Rodriguez MD PhD Active [facility] PROBIOTIC ORAL CHEW 2 daily po PROBIOTIC PRODUCT 94775997247 No Longer Active Sahara Rodriguez MD PhD Active BACTRIM DS 800-160 MG TABS 1 po BID x 7 days SULFAMETHOXAZOLE-TRIMETHOPRIM 97910360341 No Longer Active Vishal Hui MD Active CHANTIX STARTING MONTH EARNEST 0.5 MG X 11 & 1 MG X 42 TABS 0.5mg daily for 3 days , then 0.5mg BID for 4 days, then 1mg BID VARENICLINE TARTRATE 59074701451 No Longer Active TAMARA Gray Active VERAPAMIL HCL CR 120 MG TAB CR 1 po bid VERAPAMIL HCL 17948902129 No Longer Active Vishal Hui MD Active METOPROLOL SUCCINATE 50 MG TB24 1 tablet by mouth daily METOPROLOL SUCCINATE 56477571478 No Longer Active Vishal Hui MD Active SAPHRIS 10 MG SUBL 1 tab po bid ASENAPINE MALEATE 06859483650 No Longer Active Vishal Hui MD Active LISINOPRIL 20 MG TABS 1 tab po qd LISINOPRIL 08618657806 No Longer Active Vishal Hui MD Active LATUDA 20 MG TABS Take one by mouth daily LURASIDONE HCL 14953133000 No Longer Active Vishal Hui MD Active TRAZODONE HCL 50 MG TABS 1/2 tab po qd prn for anxiety TRAZODONE HCL 08674605946 No Longer Active Vishal Hui MD Active OMEPRAZOLE 20 MG TBEC 1 po q a.m. 30min prior to first food intake OMEPRAZOLE 53275125827 Active Vishal Hui MD Active RANITIDINE HCL 150 MG CAPS 1 twice a day RANITIDINE HCL 11269949563 Active Jioral Messilebron INDUSTRIAL ORDER CLERK Active LINZESS 290 MCG CAPS Take one by mouth daily LINACLOTIDE 28991138925 No Longer Active Vishal Hui MD Active SAPHRIS 5 MG SUBL 1 tab po qd ASENAPINE MALEATE 49148854025 No Longer Active Vishal Hui MD Active ZALEPLON 10 MG CAPS 1 cap po every other night ZALEPLON 76710545495 No Longer Active Vishal Hui MD Active LYRICA 50 MG CAPS 1 tab po TID PREGABALIN 95160313080 No Longer Active Vishal Hui MD Active LORATADINE 10 MG TABS 1 tab po qd LORATADINE 18572573189 No Longer Active Vishal Hui MD Active VERAPAMIL HCL ER 180 MG CR-TABS 1 tab po bid VERAPAMIL HCL 46883406097 No Longer Active Vishal Hui MD Active MIRALAX POWD 1 capfull once daily POLYETHYLENE GLYCOL 3350 65560963729 No Longer Active Vishal Hui MD Active PREDNISONE 20 MG TABS 1 tab po qd PREDNISONE 11692640134 No Longer Active Renzo Thornton DO Active LEVOFLOXACIN 500 MG TABS 1 tab po qd LEVOFLOXACIN 57286844013 No Longer Active Renzo Thornton DO Active BUSPIRONE HCL 15 MG TABS 1 tab po TID BUSPIRONE HCL 05165953735 No Longer Active Renzo Thornton DO Active BENZTROPINE MESYLATE 1 MG TABS 1 tab po qd BENZTROPINE MESYLATE 26265467162 No Longer Active Renzo Thornton DO Active ATENOLOL 25 MG TABS 1 tab po qd ATENOLOL 11619901085 No Longer Active Renzo Thornton DO Active ESCITALOPRAM OXALATE 20 MG TABS 1 tab po qd ESCITALOPRAM OXALATE 38220882104 No Longer Active Renzo Thornton DO Active ADVAIR DISKUS 250-50 MCG/DOSE AEPB 1 puff BID FLUTICASONE-SALMETEROL 35446654361 No Longer Active Renzo Thornton DO Active PREDNISONE 20 MG TAB 2 tabs daily for 3 days, 1 tab daily for 3 days, 1/2 tab daily for 2 days PREDNISONE 89579281598 No Longer Active Vishal Hui MD Active CEFDINIR 300 MG CAPS by mouth twice a day CEFDINIR 57339003677 No Longer Active Vishal Hui MD Active LANSOPRAZOLE 30 MG CPDR 1 cap po qd LANSOPRAZOLE 93324097983 No Longer Active Vishal Hui MD Active BACLOFEN 20 MG TABS 1 tab po tid BACLOFEN 27837353192 No Longer Active Vishal Hui MD Active ADVAIR DISKUS 250-50 MCG/DOSE AEPB 1 puff BID ADVAIR DISKUS 250-50 MCG/DOSE AEPB FLUTICASONE-SALMETEROL Inactive ESCITALOPRAM OXALATE 20 MG TABS 1 tab po qd ESCITALOPRAM OXALATE 20 MG TABS 220153 ESCITALOPRAM OXALATE Inactive ATENOLOL 25 MG TABS 1 tab po qd ATENOLOL 25 MG TABS 887095 ATENOLOL Inactive BENZTROPINE MESYLATE 1 MG TABS 1 tab po qd BENZTROPINE MESYLATE 1 MG TABS 621778 BENZTROPINE MESYLATE Inactive BUSPIRONE HCL 15 MG TABS 1 tab po TID BUSPIRONE HCL 15 MG TABS 613493 BUSPIRONE HCL Inactive LEVOFLOXACIN 500 MG TABS 1 tab po qd LEVOFLOXACIN 500 MG TABS 009930 LEVOFLOXACIN Inactive PREDNISONE 20 MG TABS 1 tab po qd PREDNISONE 20 MG TABS 931085 PREDNISONE Inactive MIRALAX POWD 1 capfull once daily MIRALAX POWD 356431 POLYETHYLENE GLYCOL 3350 Inactive VERAPAMIL HCL ER 180 MG CR-TABS 1 tab po bid VERAPAMIL HCL ER 180 MG CR-TABS VERAPAMIL HCL Inactive LORATADINE 10 MG TABS 1 tab po qd LORATADINE 10 MG TABS 315105 LORATADINE Inactive LYRICA 50 MG CAPS 1 tab po TID LYRICA 50 MG CAPS PREGABALIN Inactive ZALEPLON 10 MG CAPS 1 cap po every other night ZALEPLON 10 MG CAPS 431056 ZALEPLON Inactive SAPHRIS 5 MG SUBL 1 tab po qd SAPHRIS 5 MG SUBL ASENAPINE MALEATE Inactive TRAZODONE HCL 50 MG TABS 1/2 tab po qd prn for anxiety TRAZODONE HCL 50 MG TABS 760129 TRAZODONE HCL Inactive LATUDA 20 MG TABS Take one by mouth daily LATUDA 20 MG TABS LURASIDONE HCL Inactive LISINOPRIL 20 MG TABS 1 tab po qd LISINOPRIL 20 MG TABS 523472 LISINOPRIL Inactive SAPHRIS 10 MG SUBL 1 [...] twice daily BACTRIM DS 800-160 MG TAB 325561 TRIMETHOPRIM-SULFAMETHOXAZOLE Inactive MULTIVITAMINS CAPS Take one by mouth daily MULTIVITAMINS CAPS MULTIPLE VITAMIN Inactive MELATONIN 3 MG CAPS 2 po q hs MELATONIN 3 MG CAPS 19950526 MELATONIN Inactive KEFLEX 500 MG ORAL CAPS 1 cap QID by mouth KEFLEX 500 MG ORAL CAPS 840686 CEPHALEXIN Inactive CLINDAMYCIN HCL 150 MG CAPS 1 four times a day CLINDAMYCIN HCL 150 MG CAPS 146824 CLINDAMYCIN HCL Inactive DIFLUCAN 150 MG TAB 1 tablet by mouth daily DIFLUCAN 150 MG TAB 392324 FLUCONAZOLE Inactive PROZAC 20 MG CAP Take one by mouth daily PROZAC 20 MG CAP 370293 FLUOXETINE HCL Inactive IBUPROFEN 600 MG TAB 1 po TID PRN IBUPROFEN 600 MG TAB 563270 IBUPROFEN Inactive VYVANSE 40 MG CAPS 1 daily, VYVANSE 40 MG CAPS LISDEXAMFETAMINE DIMESYLATE Inactive TRAZODONE HCL 100 MG TAB take 1 at bedtime TRAZODONE HCL 100 MG TAB 977138 TRAZODONE HCL Inactive AMITRIPTYLINE HCL 100 MG TAB one at hs AMITRIPTYLINE HCL 100 MG TAB 374984 AMITRIPTYLINE HCL Inactive AMLODIPINE BESYLATE 5 MG TABS 1 tablet by mouth daily AMLODIPINE BESYLATE 5 MG TABS 227964 AMLODIPINE BESYLATE Inactive LATUDA 80 MG TABS Take one by mouth daily LATUDA 80 MG TABS LURASIDONE HCL Inactive SAPHRIS 5 MG SUBL 1 po bid SAPHRIS 5 MG SUBL ASENAPINE MALEATE Inactive PREDNISONE 20 MG TAB 2 tabs daily for 4 days, 1 tab daily for 4 days, 1/2 tab daily for 4 days PREDNISONE 20 MG TAB 060706 PREDNISONE Inactive AMBIEN 5 MG ORAL TABS 1 tab at bedtime AMBIEN 5 MG ORAL TABS 644291 ZOLPIDEM TARTRATE Inactive PROZAC 20 MG ORAL CAPS 1 tab daily PROZAC 20 MG ORAL CAPS 271886 FLUOXETINE HCL Inactive ABILIFY 15 MG ORAL TABS 1 tab daily ABILIFY 15 MG ORAL TABS 869480 ARIPIPRAZOLE Inactive METOPROLOL TARTRATE 50 MG TAB 1 po bid METOPROLOL TARTRATE 50 MG TAB 938393 METOPROLOL TARTRATE Inactive TRAMADOL HCL 50 MG TABS 1-2 po TID PRN Pain TRAMADOL HCL 50 MG TABS 766059 TRAMADOL HCL Inactive PIROXICAM 20 MG CAPS 1 cap po qd PRN Pain PIROXICAM 20 MG CAPS 262395 PIROXICAM Inactive MINIPRESS 2 MG CAPS 4 cap po at night MINIPRESS 2 MG CAPS 879090 PRAZOSIN HCL Inactive MIRALAX PACK 1 po qd PRN Constipation MIRALAX PACK 393446 POLYETHYLENE GLYCOL 3350 Inactive METOPROLOL TARTRATE 25 MG ORAL TABS 1/2 tablet twice daily for heart rate and blood pressure METOPROLOL TARTRATE 25 MG ORAL TABS 680457 METOPROLOL TARTRATE Inactive VALIUM 5 MG TAB Take 1-2 tablets daily VALIUM 5 MG TAB 707877 DIAZEPAM Inactive FLAGYL 500 MG TAB 1 tablet by mouth bid FLAGYL 500 MG TAB 694322 METRONIDAZOLE Inactive DICLOFENAC POTASSIUM TABS Take 1 tablet twice a day (pt. is not sure of the dose.) DICLOFENAC POTASSIUM TABS DICLOFENAC POTASSIUM TABS Inactive ZITHROMAX Z-EARNEST 250 MG TABS 2 today and then 1 daily for 4 days ZITHROMAX Z-EARNEST 250 MG TABS 5403013 AZITHROMYCIN Inactive PREDNISONE 20 MG TABS 2 daily for 5 days then 1 daily for 5 days PREDNISONE 20 MG TABS 864842 PREDNISONE Inactive PROAIR HFA 108 (90 BASE) MCG/ACT AERS 2 puffs four times a day as needed 2015 PROAIR HFA 108 (90 BASE) MCG/ACT AERS ALBUTEROL SULFATE Inactive HYDROCODONE-ACETAMINOPHEN 5-325 MG TABS 1 to 2 four times a day as needed for pain use until can be seen by specialist HYDROCODONE- ACETAMINOPHEN 5-325 MG TABS 565531 HYDROCODONE-ACETAMINOPHEN Inactive TESSALON PERLES 100 MG CAP 1 to 2 tablets by mouth 3 times daily as needed for cough TESSALON PERLES 100 MG CAP 069863 BENZONATATE Inactive CHANTIX STARTING MONTH EARNEST 0.5 [...] Pain 2015 DICLOFENAC SODIUM 50 MG TBEC 124113 DICLOFENAC SODIUM Inactive TOPAMAX 50 MG ORAL TABS 1 tab twice daily TOPAMAX 50 MG ORAL TABS 103354 TOPIRAMATE Inactive VIIBRYD 10 MG ORAL TABS Take 1 tablet once a day VIIBRYD 10 MG ORAL TABS VILAZODONE HCL Inactive LEVOFLOXACIN 500 MG ORAL TABS po daily LEVOFLOXACIN 500 MG ORAL TABS 193571 LEVOFLOXACIN Inactive METHYLPREDNISOLONE 4 MG ORAL TABS po daily METHYLPREDNISOLONE 4 MG ORAL TABS 177153 METHYLPREDNISOLONE Inactive OXYCODONE HCL ER 10 MG ORAL T12A 1/2 tab by mouth every 4 hours prn OXYCODONE HCL ER 10 MG ORAL T12A OXYCODONE HCL Inactive FLAGYL 500 MG TAB 1 tablet by mouth bid FLAGYL 500 MG TAB 448272 METRONIDAZOLE Inactive MONISTAT 7 COMBO PACK WOODROW 100 & 2 MG-% (9GM) VAG KIT 1 applicatorful per vagina q pm x 7 MONISTAT 7 COMBO PACK WOODROW 100 & 2 MG-% (9GM) VAG KIT MICONAZOLE NITRATE Inactive BACTRIM DS 800-160 MG TABS 1 twice a day BACTRIM DS 800-160 MG TABS 951422 SULFAMETHOXAZOLE-TRIMETHOPRIM Inactive TRAMADOL HCL 50 MG TABS 1/2-1 tab TID PRN TRAMADOL HCL 50 MG TABS 111773 TRAMADOL HCL Inactive ABILIFY MAINTENA 400 MG IM SUSR 400mg injection every 26 days ABILIFY MAINTENA 400 MG IM SUSR ARIPIPRAZOLE Inactive KLONOPIN 1 MG ORAL TABS 1 tab po TID KLONOPIN 1 MG ORAL TABS 062435 CLONAZEPAM Inactive ADVAIR DISKUS 250-50 MCG/DOSE INH AEPB 1 puff twice a day for asthma ADVAIR DISKUS 250-50 MCG/DOSE INH AEPB FLUTICASONE- SALMETEROL Inactive BENADRYL 25 MG CAP 4 po at bedtime for insomnia BENADRYL 25 MG CAP DIPHENHYDRAMINE HCL Inactive PREDNISONE 20 MG TABS 2 daily for 5 days then 1 daily for 5 days PREDNISONE 20 MG TABS 137792 PREDNISONE Inactive HYDROCODONE-ACETAMINOPHEN 5-325 MG ORAL TABS 1 tab two times a day HYDROCODONE-ACETAMINOPHEN 5-325 MG ORAL TABS 376072 HYDROCODONE-ACETAMINOPHEN Inactive CEFDINIR 300 MG CAPS by mouth twice a day CEFDINIR 300 MG CAPS 112255 CEFDINIR Inactive PREDNISONE 20 MG TAB 2 tabs daily for 3 days, 1 tab daily for 3 days, 1/2 tab daily for 2 days PREDNISONE 20 MG TAB 748680 PREDNISONE Inactive BACTRIM DS 800-160 MG TABS 1 po BID x 7 days BACTRIM DS 800-160 MG TABS 924142 SULFAMETHOXAZOLE-TRIMETHOPRIM Inactive DIFLUCAN 150 MG TABS 1 pill every other day x 2 doses DIFLUCAN 150 MG TABS 767327 FLUCONAZOLE Inactive BACTRIM DS 800-160 MG TABS 1 pill by mouth twice daily BACTRIM DS 800-160 MG TABS 910388 SULFAMETHOXAZOLE-TRIMETHOPRIM Inactive KEFLEX 500 MG CAP 1 po TID x 10 days KEFLEX 500 MG CAP 794793 CEPHALEXIN Inactive Advance Directives Directive Description Start [...] 369 10^3/MM^3 10*3/mm3 142-424 Lab Report: Chlamydia/GC APTIMA/[id number] - Lab chlamydia DNA probe NOT DETECTED NOT DETECTED Lab Report: Chlamydia/GC APTIMA/[id number] - Microbiology Neisseria gonorrhoeae DNA probe NOT DETECTED NOT DETECTED Lab Report: Comp. Metabolic Panel - Chemistry sodium, serum 142 mmol/L 679-986 3971/06/08 carbon dioxide, venous blood 27.6 mmol/L 21.0-32.0 potassium, serum 4.0 mmol/L 3.5-5.2 chloride, serum 105 mmol/L 98-107 blood glucose 95 mg/dL 65-110 urea nitrogen, blood 8 mg/dL 7-18 creatinine, serum 0.75 mg/dL 0.55-1.30 alanine aminotransferase (SGPT), serum 49 U/L 12-78 aspartate aminotransferase (SGOT), serum 28 U/L 15-37 calcium, serum 9.4 mg/dL 8.5-10.1 bilirubin, serum, total 0.30 mg/dL 0.00-1.00 sodium, serum 140 mmol/L 098-706 3882/08/08 carbon dioxide, venous blood 33.7 mmol/L 21.0-32.0 [...] mg/dL Encounters Code Encounter Date Provider Facility CPT-[id number] Level 4 Est. Patient 10:20:54 CVICU NURSE Suzan Boo [facility] CPT-76515 Level 3 Est. Patient 11:47:37 CVICU NURSE Ahmet Carbajal MD [facility] CPT-92211 Level 3 Est. Patient 10:40:11 CVICU NURSE Ahmet Carbajal MD [facility] CPT-20962 Level 3 Est. Patient 15:07:06 CVICU NURSE Neeraj Collins MD [facility] CPT-09881 Level 4 Est. Patient 14:45:00 CVICU NURSE Ahmet Carbajal MD [facility] CPT-49479 Level 3 Est. Patient 13:59:59 CDT Luigi Martínez [facility] CPT-96028 Level 3 Est. Patient 18:18:53 CDT Neeraj Collins MD [facility] CPT-47958 Level 3 Est. Patient 15:50:44 CDT Vishal Hui MD [facility] CPT-63511 Level 3 Est. Patient 11:36:17 CDT Ahmet Carbajal MD [facility] CPT-98684 Level 3 Est. Patient 13:29:16 CDT Vishal Hui MD [facility] CPT-60345 Level 3 Est. Patient 14:27:52 CDT Neeraj Collins MD [facility] CPT-78102 Level 3 Est. Patient 08:56:03 CDT Luigi Martínez [facility] CPT-27192 Level 4 Est. Patient 12:11:48 CDT Fabiola Johnson [facility] CPT-04795 Level 3 New Patient 16:53:37 CDT Albert Caldera MD [facility] CPT-66259 Level 3 Est. Patient 11:25:49 CDT Renzo Thornton DO [facility] CPT-79010 Level 3 Est. Patient 15:22:01 CDT Ahmet Carbajal MD [facility] CPT-52436 Level 4 Est. Patient 09:00:51 CVICU NURSE Vishal Hui MD [facility] CPT-46591 Level 3 Est. Patient 11:37:33 CVICU NURSE Vishal Hui MD [facility] CPT-69814 Level 3 Est. Patient 08:41:09 CVICU NURSE Vishal Hui MD [facility] CPT-29278 Level 4 Est. Patient 10:19:35 CVICU NURSE Vishal Hui MD [facility] CPT-26130 Level 3 Est. Patient 13:35:45 CDT Vishal Hui MD [facility] CPT-20359 Level 4 Est. Patient 10:08:37 CDT Vishal Hui MD [facility] CPT-11670 Level 3 Est. Patient 11:22:10 CDT Vishal Hui MD [facility] CPT-63303 Level 3 Est. Patient 11:03:32 CDT Sahara Rodriguez MD [facility]-40397 Level 3 Est. Patient 09:41:35 CDT Vishal Hui MD [facility] CPT-65218 Level 3 Est. Patient 12:00:41 CDT Neeraj Collins MD [facility] CPT-37358 Level 3 Est. Patient 09:16:24 CDT Vishal Hui MD [facility] CPT-00604 Level 4 Est. Patient 13:59:09 CDT Neeraj Collins MD [facility] CPT-70381 Level 3 Est. Patient 15:19:43 CDT Renzo Thornton DO [facility] CPT-79956 Level 3 Est. Patient 18:10:26 CDT Sahara Rodriguez MD [facility] CPT-63869 Level 3 Est. Patient 14:49:50 CDT Vishal Hui MD [facility] CPT-29220 Level 4 Est. Patient 18:41:46 CDT Neeraj Collins MD [facility] CPT-85012 Level 4 Est. Patient 09:18:38 CVICU NURSE Vishal Hui MD [facility] CPT-27711 Level 3 Est. Patient 14:43:55 CVICU NURSE Vishal Hui MD [facility] CPT-33158 Level 3 Est. Patient 15:26:33 CVICU NURSE Sahara Rodriguez MD [facility]-91866 Level 3 Est. Patient 10:32:14 CVICU NURSE Vishal Hui MD [facility] CPT-00119 Level 3 Est. Patient 15:12:52 CVICU NURSE Vishal Hui MD [facility] CPT-57926 Level 4 Est. Patient 09:19:27 CDT Vishal Hui MD [facility] CPT-87348 Level 3 Est. Patient 15:53:00 CDT Renzo Thornton [facility] CPT-19228 Level 3 Est. Patient 15:50:30 CDT Renzo Thornton [facility] CPT-02386 Level 3 Est. Patient 16:55:24 CDT Vishal Hui MD [facility] Procedures Code Procedure Name Date Entry Date Standard Description CPT-G0439 [facility] Annual Wellness Exam 09:30:58 CVICU NURSE CPT-47897 TSH - LAB USE ONLY 08:50:26 CVICU NURSE CPT-00392 CBC - LAB USE ONLY 08:50:26 CVICU NURSE CPT-07009 Venipuncture Draw Fee 08:50:26 CVICU NURSE CPT-01143 Abx/Therapy Injection 17:34:30 CVICU NURSE CPT-69010 Nexplanon Removal with Reinsertion 14:09:32 CDT CPT-J7307 Nexplanon (Implant) 14:09:32 CDT CPT-OV Office Visit 14:09:32 CDT CPT-14495 UA w micro - LAB USE ONLY 16:21:13 CDT CPT-11699 Wet Mount - LAB USE ONLY 16:21:13 CDT CPT-25103 First Vx - Ix admin for Medicare patients 14:37:47 CDT CPT-17811 Fluzone Preservative Free Intramuscular Suspension 14:37 :47 CDT CPT-84145 Abx/Therapy Injection 13:54:22 CDT CPT-71167 Abx/Therapy Injection 08:47:09 CDT CPT-83900 Abx/Therapy Injection 13:29:56 CDT CPT-07651 Abx/Therapy Injection 08:36:16 CDT CPT-76236 Wet Mount - LAB USE ONLY 17:44:58 CDT CPT-01651 UA w micro - LAB USE ONLY 17:44:58 CDT CPT-90799 CMP - LAB USE ONLY 17:44:58 CDT CPT-66450 Venipuncture Draw Fee 17:44:58 CDT CPT-36346 Cervical Min 4V - XRAY USE ONLY 09:01:40 CDT CPT-58846 Chest 2V Frontal and Lat - XRAY USE ONLY 11:06:31 CDT CPT-37963 EKG Trac and Interp - XRAY USE ONLY 11:31:43 CDT 08/26 CPT-J3420 Vitamin B12 1000mcg (Cyanocobalamin) 08:10:26 CVICU NURSE 04/12 CPT-00694 Abx/Therapy Injection 08:10:26 CVICU NURSE CPT-G0438 Initial Annual Wellness Exam 19:01:01 CVICU NURSE CPT-J3420 Vitamin B12 1000mcg (Cyanocobalamin) 16:57:46 CDT 08/14 CPT-59457 Recombivax HB Injection Suspension 5 MCG/0.5ML 08:37:50 CVICU NURSE CPT-19846 Immunization Single Admin 08:37:50 CVICU NURSE CPT-J3420 Vitamin B12 1000mcg (Cyanocobalamin) 08:32:16 CVICU NURSE 03/11 CPT-68018 Abx/Therapy Injection 08:32:16 CVICU NURSE CPT-77321 Chest 2V Frontal and Lat 11:46:38 CVICU NURSE CPT-27966 Venipuncture Draw Fee 09:12:45 CVICU NURSE CPT-J3420 Vitamin B12 1000mcg (Cyanocobalamin) 08:50:15 CVICU NURSE 02/08 CPT-09956 Abx/Therapy Injection 08:50:15 CVICU NURSE CPT-Cryo Cryotherapy 10:19:35 CVICU NURSE CPT-000 Give Appropriate Flu Vaccine 09:22:16 CDT CPT-J3420 Vitamin B12 1000mcg (Cyanocobalamin) 19:08:57 CDT 01/11 CPT-31136 Abx/Therapy Injection 19:08:57 CDT CPT-J3420 Vitamin B12 1000mcg (Cyanocobalamin) 08:19:08 CDT 12/11 CPT-65629 Abx/Therapy Injection 08:19:08 CDT CPT-J3420 Vitamin B12 1000mcg (Cyanocobalamin) 14:48:00 CDT 11/09 CPT-17009 Abx/Therapy Injection 14:47:59 CDT CPT-J3420 Vitamin B12 1000mcg (Cyanocobalamin) 08:34:04 CDT 10/09 CPT-73781 Abx/Therapy Injection 08:34:04 CDT CPT-J3420 Vitamin B12 1000mcg (Cyanocobalamin) 09:18:52 CDT 09/11 CPT-98483 Abx/Therapy Injection 09:18:52 CDT CPT-J3420 Vitamin B12 1000mcg (Cyanocobalamin) 08:35:44 CDT 09/04 CPT-38232 Abx/Therapy Injection 08:35:44 CDT CPT-34304 Immunization Single Admin 11:07:16 CDT CPT-96780 Hepatitis B adult IM 11:07:16 CDT CPT-J3420 Vitamin B12 1000mcg (Cyanocobalamin) 11:00:49 CDT 08/28 CPT-J1040 Depo Medrol 80 mg (Methyl Prednisolone Acetate) 11:00: 49 CDT CPT-65641 Abx/Therapy Injection 11:00:49 CDT CPT-J1040 Depo Medrol 80 mg (Methyl Prednisolone Acetate) 09:16: 23 CDT CPT-J3420 Vitamin B12 1000mcg (Cyanocobalamin) 08:27:05 CDT 08/20 CPT-57990 Abx/Therapy Injection 08:27:05 CDT CPT-49973 Recombivax HB Injection Suspension 5 MCG/0.5ML 10:00:41 CDT CPT-26079 Administration single or combination vaccine inc oral 10 :00:41 CDT CPT-84864 Sono transvag pelvis non OB uterus ovaries cervix 16:36: 57 CDT CPT-15580 LS spine comp w obliq 09:50:55 CVICU NURSE CPT-21818 Abd compl w upright 09:50:55 CVICU NURSE CPT-J1100 Decadron 4mg (Dexamethasone) 15:51:24 CVICU NURSE CPT-J1030 Depo Medrol 40 mg (Methyl Prednisolone Acetate) 15:51: 24 CVICU NURSE CPT-32470 Abx/Therapy Injection 15:51:24 CVICU NURSE CPT-J1100 Decadron 4mg (Dexamethasone) 15:26:33 CVICU NURSE CPT-J1030 Depo Medrol 40 mg (Methyl Prednisolone Acetate) 15:26: 33 CVICU NURSE CPT-98320 Sono retroperitoneal complete kidneys and bladder 17:15: 30 CDT CPT-66310 Abd compl w upright 16:09:25 CDT CPT-J1100 Decadron 8mg (Dexamethasone) 17:07:57 CDT CPT-35969 Abx/Therapy Injection 17:07:57 CDT CPT-J1100 Decadron 8mg (Dexamethasone) 16:55:24 CDT CPT-06624 Chest 2V Frontal and Lat 16:32:44 CDT
--- OUTSIDE RECORDS SUMMARY | 2016-11-04 15:33 | XMS REPORT ---
Author Author [facility] Medical Staff Organization [facility] Address [address] [place], [place] [id number] Phone [phone] Care Team Providers Care Research Compliance Specialist Name Role Phone JORGE OLGA NORIEGA PP [phone] OLGA PATEL APRN PP [phone] Summary purpose TRANSITION OF CARE AUTO GENERATION Chief Complaint and Reason for Visit Admit Diagnosis 1 MIGRAINE Problem list No authorized problems tracked for continuity of care are available for this visit. Encounters The following conditions tracked for encounter diagnoses were recorded for this visit: Finding or Diagnosis Status Certainty Chronicity Onset *MIGRAINE Active Medications Discharge Medications Status Medication Directions Current gabapentin 300 mg capsule 300 milligram (s) oral 3 xDaily 11-30-20 Nerve Pain Current hydroxyzine HCl 25 mg tablet 1 tablet oral oral Q8 Hours As Needed for nausea Current ibuprofen 600 mg tablet 600 milligram (s) oral 3 xDaily As Needed pain Current metoprolol tartrate 50 mg tablet 50 milligram (s) oral Twice a day high blood pressure Current omeprazole 20 mg capsule,delayed release 20 milligram (s) oral Daily take 30 minutes before supper for refulx Current ondansetron HCl 4 mg tablet 4 milligram (s) oral Q6 Hours As Needed nausea Current prazosin 2 mg capsule 2 milligram (s) oral Bedtime daily nightmares Current ranitidine 150 mg tablet 150 milligram (s) oral Twice a day reflux Current Saphris 5 mg sublingual tablet 5 milligram (s) Sublingual Twice a day sleep Current tizanidine 4 mg tablet 4 milligram (s) oral Q6 Hours As Needed Tremors Current topiramate 50 mg tablet 50 milligram (s) oral Twice a day Headache Current Vyvanse 40 mg capsule 40 milligram (s) oral Daily Appetite control Allergies, adverse reactions, alerts Allergen Category Ingredient [...] diagnostic tests and/or laboratory data RESULTS Chemistry :00:00 Result Normal Range Units Sodium 142 134-145 mEq/l Potassium 3.9 3.5-5.1 mEq/l Chloride H 110 98-107 mEq/l CO2 23.1 22-28 mEq/l Glucose H 155 70-105 mg/dl BUN 8 7-18 mg/dl Creatinine 0.84 0.6-1.0 mg/dl Calcium 8.6 8.4-10.2 mg/dl Osmolality 284.6 280-300 mOsm/L Anion GAP 8.9 8-16 BUN/Creatinine Ratio L 9.5 10-20 Estimated GFR 81 >=60 mL/min/1.7 C-Reactive Protein < 0.2 0-1 mg/dl :13:00 Result Normal Range Units Magnesium 1.9 1.7-2.8 mg/dl Hematology :00:00 Result Normal Range Units WBC 8.8 4.8-10.8 103/uL RBC 4.5 4.2-5.4 106/uL HGB 13.7 12.0-16.0 g/dl HCT 41.6 36.9-47.0 % MCV 93.1 81-99 FL MCH 30.6 27-31 pg MCHC L 32.9 33-37 g/dl RDW 12.1 11.5-15.5 % PLT 339 130-400 103/uL MPV 9.9 7.3-10.4 FL Special Chemistry :00:00 Result Normal Range Units Hemoglobin A1C 5.6 4.5-6.2 % Hematology - Other (Misc) :00:00 Result Normal Range Units Sed Rate 13 0-20 Radiology Results :04:00 CT HEAD W/O CONT PACs Image DATE OF EXAM: May 12 2015 [id number] HEAD WO CONTRAST : RADIOLOGY REPORT DATE OF SERVICE:05/12/15 HISTORY:Worst migraine headache ever, dizziness, hypertension, balance disturbance. NONCONTRAST CT HEAD 1615 HOURS Axial scans were obtained at 5 mm intervals. No contrast was administered. Comparison is made with the prior CT head performed 03/11/15 and the prior magnetic resonance imaging brain study performed 03/17/15. The ventricles are normal. There are no masses. There is no midline shift. There is no hemorrhage or infarct.The cerebellum and brainstem are normal. There are no unusual intra or extra-axial fluid collections. The bony calvarium is normal. The visualized sinuses and mastoids are clear. IMPRESSION:Normal CT head. MD SOLEDAD Mays/maia05/12/2015 16:21:00 / 05/12/2015 18:57:23 cc:Olga Patel APRN This document has been electronically Signed by: On: DATE OF EXAM: May 12 2015 [id number] HEAD WO CONTRAST : RADIOLOGY REPORT DATE OF SERVICE:05/12/15 HISTORY:Worst migraine headache ever, dizziness, hypertension, balance disturbance. NONCONTRAST CT HEAD 1615 HOURS Axial scans were obtained at 5 mm intervals. No contrast was administered. Comparison is made with the prior CT head performed 03/11/15 and the prior magnetic resonance imaging brain study performed 03/17/15. The ventricles are normal. There are no masses. There is no midline shift. There is no hemorrhage or infarct.The cerebellum and brainstem are normal. There are no unusual intra or extra-axial fluid collections. The bony calvarium is normal. The visualized sinuses and mastoids are clear. IMPRESSION:Normal CT head. MD SOLEDAD Mays/maia05/12/2015 16:21:00 / 05/12/2015 18:57:23 cc:Olga Patel APRN This document has been electronically Signed by: ELAN MAHAN MD On: May 13 2015 12:04P MIGRAINE Result Amended on 2015-05-13 at 12:04:31. Previous status was AR. MIGRAINE [id number]:00:00 Result Normal Range Units MPV 9.9 7.3-10.4 FL History of procedures No procedures recorded for this patient visit. Functional status Functional Status Finding Observation Time Hearing Prob Loc none :34 Vision Problems yes :34 Vision Correct Dev glasses :34 Ambulation Asst Dev none :34 Range of Motion full :25 Muscle Strength RUE 5 ROM full resist :25 Muscle Strength RLE 5 ROM full resist :25 Muscle Strength LUE 5 ROM full resist : Muscle Strength LLE 5 ROM full resist :25 Transfers assist x 1 :25 Ambulation in room :25 Balance steady :25 Bathing Assistance none :34 Eating Assistance none :34 Dressing Assistance none :34 Toileting Assistance none :34 Transfer Assistance none :34 Decline Slf Care/Mob no :34 Phys Cond Stable yes :34 Nutrition normal :25 Diet regular :25 Oral Cavity moist and intact : Teeth intact :25 Dental Hygiene good : Abdomen Appearance round [id number] Abdomen soft : Bowel Sounds present : NG Tube no :25 Feeding Tube none : Vick no : Cont Bladder Irr no [id number]:25 Ostomy no :25 Stool normal :25 Urination normal :25 Quality sym/unlabored : Cough absent : Secretions no :25 Breath Sounds RUL clear : Breath Sounds RML clear :25 Breath Sounds RLL clear : Breath Sounds BENJA clear : Breath Sounds LLL clear :25 Airway natural :25 Chest Tube no :25 Oxygen no :25 Oxygen Flow Rate RA :25 C-PAP no :25 BI-PAP no : Temp >100.4 no : Temp <96.8 no : Chills with rigors no : HR > 90bpm no : Respirations > 20 no : Systolic <90 no : headache stiff neck no :25 IV Site Location L hand :00 IV Type peripheral :00 IV Site Information existing :24 IV Site Start Attmpt 2 times :48 IV Site Festus 22 :24 IV Site Appearance WNL :24 IV Site Color clear :24 IV Site Patent yes :24 Dressing Changed yes :48 Dressing Type gauze :00 Nursing Note pt. ambulated off the unit at this time and transported by friend at this time. :15 Cognitive Status Finding Observation Time Oriented To Date 5 Yes :[address] 5 Yes :34 Name 3 Objects 3 Yes [id number] Name Object in Rm 2 Yes [id number] Recall 3 Objects 3 Yes :34 Repeats a Phrase 1 Yes :34 Follows Verbal Direc 3 Yes :34 Follows Written Dire 1 Yes :34 Write a Sentance 1 Yes :34 Draw an Object 1 Yes :34 Mini Mental Total 25 points :34 Learning Ability comprehends well :27 Neurological no :27 Psychological yes :27 Physical no :27 Hearing no :27 Shale Processing Technician Needed no :27 Sign Language no :27 Emotional no :27 Vision yes :27 Laguage no :27 Financial no :27 Vital signs Type Value Date Respiration Rate 20breaths per minute : Pulse 74beats per minute : Oxygen Saturation 99% : BP Systolic 109mmHg : BP Diastolic 64mmHg :23 Temperature 97.6F :23 Height 64inches :03 Weight 291.5LB :03 Social history No Social History or smoking status observations were recorded for this visit. ( Unknown if ever smoked.) Treatment Plan No treatment plan text is available for this visit. Hospital discharge instructions Discharge Date/Time 05/13/15 10:15 Accompanied By Savannah avina (explain) Comment: friend Dismissal Condition good Disposition on DC home Valuables yes Valuable Type cell phone Valuables Returned T patient DC Inst/Educ Give yes Med/Side Effects Rev yes DC Med Rec Rev yes PNE Vac unsure Flu Vac 2015 Tetanus Vac unknown Medical Equipment N/A Diet Explained yes Follow up appt appt made (specify) Follow Up Appt D/T may 18 @ 1:30
--- OUTSIDE RECORDS SUMMARY | 2016-11-04 15:36 | XMS REPORT | Clinical Summary ---
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 Vaginal discharge ICD-623.5 Inactive Suzan Boo TOBACCO DRYING MACHINE OPERATOR DYSURIA ICD-788.1 Inactive Suzan Boo TOBACCO DRYING MACHINE OPERATOR Cellulitis and abscess of breast ICD-611.0 Inactive Ahmet Carbajal MD Nondisplaced transverse fracture of shaft of left fibula, subsequent encounter for closed fracture with routine healing Inactive Suzan Boo TOBACCO DRYING MACHINE OPERATOR Bronchitis, acute ICD-466.0 Inactive Ahmet Carbajal MD [employer] well woman exam ICD-V72.31 Inactive Suzan Boo TOBACCO DRYING MACHINE OPERATOR Bronchitis, acute with mild bronchospasm ICD-466.0 Inactive Suzan Boo TOBACCO DRYING MACHINE OPERATOR Tracheitis ICD-464.10 Inactive Suzan Boo TOBACCO DRYING MACHINE OPERATOR Impetigo ICD-684 Inactive Suzan Boo TOBACCO DRYING MACHINE OPERATOR Furuncle of buttock ICD-680.5 Inactive Suzan Boo TOBACCO DRYING MACHINE OPERATOR Vaginal irritation ICD-623.9 Inactive Suzan Boo TOBACCO DRYING MACHINE OPERATOR Scalding pain on urination ICD-788.1 Inactive Suzan Boo TOBACCO DRYING MACHINE OPERATOR Abdominal pain, right upper quadrant ICD-789.01 Inactive Suzan Boo TOBACCO DRYING MACHINE OPERATOR Dark urine ICD-791.9 Inactive Suzan Boo APRN Preop exam ICD-V72.84 Inactive Suzan Boo APRN Medication List Medication Instructions Start Date Stop Date Generic Name ND Status Provider Patient Instruction METFORMIN HCL 500 MG [id number] one a day for a week, then 2 a day METFORMIN HCL 86431048055 Active Malharvey Zigledenilson HADDAD Active NYSTATIN 856296 UNIT/GM CREA apply three times a day to yeast rash NYSTATIN 09247205327 No Longer Active Maliheh Ziglari WATCH ADJUSTER Active BACTRIM DS 800-160 MG TABS 1 twice a day SULFAMETHOXAZOLE-TRIMETHOPRIM 25501872663 No Longer Active Maliheh Ziglari WATCH ADJUSTER Active MUPIROCIN 2 % OINT apply twice a day MUPIROCIN 68813343523 Active Suzan Boo APRN Active DHJLELFVLP-ASDS-TIOFYYIU 50-325-40 MG TABS 1 to 2 four times a day as needed for headache [id number] 26105977667 Active Suzan Boo APRN Active METOCLOPRAMIDE HCL 10 MG TABS 1 two times as needed for nausea and headaches METOCLOPRAMIDE HCL 63757312598 Active Meena Ortiz MA Active AMITIZA 24 MCG ORAL CAPS one capsule twice daily LUBIPROSTONE 75744011534 Active Suzan Boo APRN Active MIRALAX ORAL POWD 17GMS DAILY IN WATER POLYETHYLENE GLYCOL 3350 93206173845 No Longer Active Suzan Boo APRN Active LACTULOSE 10 GM/15ML ORAL SOLN 30mL oral BID for IBS-C LACTULOSE 45957327182 No Longer Active Suzan Boo APRN Active BACTRIM DS 800-160 MG TAB Take one (1) tablet by mouth twice a day for 5 days TRIMETHOPRIM-SULFAMETHOXAZOLE 92969107811 No Longer Active Suzan Boo APRN Active MUPIROCIN 2 % OINT apply twice a day MUPIROCIN 43185874539 No Longer Active Suzan Boo APRN Active BACTRIM DS 800-160 MG TABS 1 twice a day SULFAMETHOXAZOLE-TRIMETHOPRIM 02078684611 No Longer Active Suzan Boo APRN Active DIFLUCAN 150 MG TABS 1 by mouth for yeast FLUCONAZOLE 38699696290 No Longer Active Suzan Boo APRN Active LINZESS 290 MCG ORAL CAPS 1 tab 30 min prior to first meal each day. LINACLOTIDE 68155632063 No Longer Active Sheila Calderon LPN Active AMITIZA 8 MCG ORAL CAPS 1 tab BID LUBIPROSTONE 84938104499 No Longer Active Lynda Xiao LPN Active TESSALON PERLES 100 MG CAPS 1 three times a day as needed for cough BENZONATATE 62417603263 No Longer Active Suzan Boo APRN Active BACTRIM DS 800-160 MG TABS 1 twice a day SULFAMETHOXAZOLE-TRIMETHOPRIM 88319412733 No Longer Active Suzan Boo APRN Active DIFLUCAN 150 MG TABS 1 by mouth for yeast FLUCONAZOLE 09228563019 No Longer Active Suzan Boo APRN Active EQ NICOTINE 21 MG/24HR TRANS PT24 Apply daily to stop smoking NICOTINE 35085417458 No Longer Active Suzan Boo APRN Active PREDNISONE 10 MG TABS 2 daily for 5 days then 1 daily for 5 days PREDNISONE 01678963046 No Longer Active Suzan Boo APRN Active LEVAQUIN 500 MG TABS 1 daily for infection LEVOFLOXACIN 27856253687 No Longer Active Suzan Boo APRN Active TROPICAMIDE 0.5 % OPHTH SOLN 1 drop PRN eye spasms TROPICAMIDE 76474892064 No Longer Active Suzan Boo APRN Active PREDNISONE 20 MG TAB 1 tablet daily x 4 days PREDNISONE 57994801788 No Longer Active Suzan Boo APRN Active ACETAMINOPHEN-CODEINE 120-12 MG/5ML SOLN 5 ml by mouth every 4-6 hours if needed for cough ACETAMINOPHEN-CODEINE 75247459607 No Longer Active Suzan Boo APRN Active KEFLEX 500 MG CAP 1 po qid CEPHALEXIN 83353980784 No Longer Active Suzan Boo APRN Active FLOVENT HFA 110 MCG/ACT AERO 2 puffs inhaled b.i.d. FLUTICASONE PROPIONATE HFA 75434653838 Active Renzo Thornton DO Active RISPERDAL 4 MG ORAL TABS 1 tab at bedtime RISPERIDONE 73272912888 Active Samantha WAGNERA Active ZOFRAN 4 MG TABS 1 po q6hr PRN Nausea ONDANSETRON HCL No Longer Active Suzan Boo APRN Active FLUTICASONE PROPIONATE 50 MCG/ACT SUSP 2 sprays each nostril daily before bed. FLUTICASONE PROPIONATE 96242885931 No Longer Active Suzan Boo APRN Active ASPIRIN 325 MG ORAL TABS 1 tab q.d ASPIRIN 92494998653 No Longer Active Suzan Boo APRN Active HALOPERIDOL 10 MG ORAL TABS 1 tab q.d HALOPERIDOL 49965995286 No Longer Active Suzan Boo APRN Active GUAIFENESIN-CODEINE 100-10 MG/5ML SYRP 5ml every 4 to 6 hours as needed for cough GUAIFENESIN-CODEINE 02478304501 No Longer Active Suzan Boo APRN Active ZITHROMAX Z-EARNEST 250 MG TABS 2 today and then 1 daily for 4 days AZITHROMYCIN 90113849903 No Longer Active Suzan Boo APRN Active CLONAZEPAM 1 MG ORAL TABS 1 twice a day and an additional 1 tablet every other day as needed for pseudoseizures or anxiety CLONAZEPAM 23837122608 Active Suzan Boo APRN Active HYDROCODONE-ACETAMINOPHEN 5-325 MG ORAL TABS 1 tab two times a day HYDROCODONE-ACETAMINOPHEN 63322167171 No Longer Active Ahmet Carbajal MD Active LAMICTAL 100 MG ORAL TABS 1 tab 2 times qd. LAMOTRIGINE 30053567543 Active Ahmet Carbajal MD Active PREDNISONE 20 MG TABS 2 daily for 5 days then 1 daily for 5 days PREDNISONE 28566627137 No Longer Active Ahmet Carbajal MD Active FLUTICASONE PROPIONATE 50 MCG/ACT SUSP 1 to 2 sprays each nostril daily for allergies FLUTICASONE PROPIONATE 94890691359 Active Tila Valenzuela Active BENADRYL 25 MG CAP 4 po at bedtime for insomnia DIPHENHYDRAMINE HCL 83361414503 No Longer Active Ahmet Carbajal MD Active ADVAIR DISKUS 250-50 MCG/DOSE INH AEPB 1 puff twice a day for asthma FLUTICASONE-SALMETEROL 69474104639 No Longer Active Ahmet Carbajal MD Active KLONOPIN 1 MG ORAL TABS 1 tab po TID CLONAZEPAM 42283966132 No Longer Active Ahmet Carbajal MD Active ABILIFY MAINTENA 400 MG IM SUSR 400mg injection every 26 days ARIPIPRAZOLE 00971112795 No Longer Active Ahmet Carbajal MD Active TRAMADOL HCL 50 MG TABS 1/2-1 tab TID PRN TRAMADOL HCL 39555177537 No Longer Active Ahmet Carbajal MD Active BACTRIM DS 800-160 MG TABS 1 twice a day SULFAMETHOXAZOLE- TRIMETHOPRIM 87733675402 No Longer Active Ahmet Carbajal MD Active PROAIR HFA 108 (90 BASE) MCG/ACT AERS 2 puffs four times a day as needed 2015 ALBUTEROL SULFATE 93625224687 Active Honey Hinotn APRN Active MONISTAT 7 COMBO PACK WOODROW 100 & 2 MG-% (9GM) VAG KIT 1 applicatorful per vagina q pm x 7 MICONAZOLE NITRATE 04918831828 No Longer Active Ahmet Carbajal MD Active FLAGYL 500 MG TAB 1 tablet by mouth bid METRONIDAZOLE 60219752927 No Longer Active Ahmet Carbajal MD Active OXYCODONE HCL ER 10 MG ORAL T12A 1/2 tab by mouth every 4 hours prn OXYCODONE HCL 04298650833 No Longer Active Ahmet Carbajal MD Active METHYLPREDNISOLONE 4 MG ORAL TABS po daily METHYLPREDNISOLONE 43461414955 No Longer Active Ahmet Carbajal MD Active LEVOFLOXACIN 500 MG ORAL TABS po daily LEVOFLOXACIN 77558406268 No Longer Active Ahmet Carbajal MD Active VIIBRYD 10 MG ORAL TABS Take 1 tablet once a day VILAZODONE HCL 68695735755 No Longer Active Ahmet Carbajal MD Active TOPAMAX 50 MG ORAL TABS 1 tab twice daily TOPIRAMATE 99755754656 No Longer Active Ahmet Carbajal MD Active DICLOFENAC SODIUM 50 MG TBEC 1 tablet by mouth four times daily PRN Pain 2015 DICLOFENAC SODIUM 37794084972 No Longer Active Ahmet Carbajal MD Active ADZENYS XR-ODT 6.3 MG ORAL TBED 1 tab po daily for ADHD AMPHETAMINE 58580547520 No Longer Active Ahmet Carbajal MD Active CHANTIX 1 MG TABS 1 twice a day to help quit smoking VARENICLINE TARTRATE 11460918124 No Longer Active Dipika Burgos MD Active CHANTIX STARTING MONTH EARNEST 0.5 MG X 11 & 1 MG X 42 TABS take as directed 2015 VARENICLINE TARTRATE 43714539742 No Longer Active Dipika Burgos MD Active TESSALON PERLES 100 MG CAP 1 to 2 tablets by mouth 3 times daily as needed for cough BENZONATATE 14472684641 No Longer Active Luigi Martínez APRN Active IMITREX 50 MG ORAL TABS 0.5 po x 1 PRN Headache. May repeat dose x 1 in 2 hours if needed SUMATRIPTAN SUCCINATE 86420475281 Active TAMARA Casey Active HYDROCODONE-ACETAMINOPHEN 5-325 MG TABS 1 to 2 four times a day as needed for pain use until can be seen by specialist HYDROCODONE- ACETAMINOPHEN 72299082015 No Longer Active Vishal Hui MD Active PROAIR HFA 108 (90 BASE) MCG/ACT AERS 2 puffs four times a day as needed 2015 ALBUTEROL SULFATE 40829994267 No Longer Active Vishal Hui MD Active PREDNISONE 20 MG TABS 2 daily for 5 days then 1 daily for 5 days PREDNISONE 58942426904 No Longer Active Vishal Hui MD Active ZITHROMAX Z-EARNEST 250 MG TABS 2 today and then 1 daily for 4 days AZITHROMYCIN 16785773937 No Longer Active Vishal Hui MD Active DICLOFENAC POTASSIUM TABS Take 1 tablet twice a day (pt. is not sure of the dose.) DICLOFENAC POTASSIUM TABS 28433783101 No Longer Active Vishal Hui MD Active VERAPAMIL HCL ER 120 MG ORAL CR-TABS Take 1 tablet by mouth twice a day. VERAPAMIL HCL 21400429845 Active Vishal Hui MD Active FLAGYL 500 MG TAB 1 tablet by mouth bid METRONIDAZOLE 57382067156 No Longer Active Vishal Hui MD Active VALIUM 5 MG TAB Take 1-2 tablets daily DIAZEPAM 36994384267 No Longer Active Fabiola Johnson APRN Active METOPROLOL TARTRATE 25 MG ORAL TABS 1/2 tablet twice daily for heart rate and blood pressure METOPROLOL TARTRATE 91455929103 No Longer Active Fabiola Johnson APRN Active MIRALAX PACK 1 po qd PRN Constipation POLYETHYLENE GLYCOL 3350 46819627366 No Longer Active Ahmet Carbajal MD Active MINIPRESS 2 MG CAPS 4 cap po at night PRAZOSIN HCL 03466072086 No Longer Active Ahmet Carbajal MD Active PIROXICAM 20 MG CAPS 1 cap po qd PRN Pain PIROXICAM 52899523194 No Longer Active Ahmet Carbajal MD Active TRAMADOL HCL 50 MG TABS 1-2 po TID PRN Pain TRAMADOL HCL 72993394813 No Longer Active Ahmet Carbajal MD Active METOPROLOL TARTRATE 50 MG TAB 1 po bid METOPROLOL TARTRATE 48099408143 No Longer Active Ahmet Carbajal MD Active ABILIFY 15 MG ORAL TABS 1 tab daily ARIPIPRAZOLE 45131341447 No Longer Active Ahmet Carbajal MD Active PROZAC 20 MG ORAL CAPS 1 tab daily FLUOXETINE HCL 69426381180 No Longer Active Ahmet Carbajal MD Active AMBIEN 5 MG ORAL TABS 1 tab at bedtime ZOLPIDEM TARTRATE 39522773232 No Longer Active Ahmet Carbajal MD Active PREDNISONE 20 MG TAB 2 tabs daily for 4 days, 1 tab daily for 4 days, 1/2 tab daily for 4 days PREDNISONE 95010634998 No Longer Active Ahmet Carbajal MD Active KEFLEX 500 MG CAP 1 po TID x 10 days CEPHALEXIN 15048054052 No Longer Active Vishal Hui MD Active SAPHRIS 5 MG SUBL 1 po bid ASENAPINE MALEATE 83836215986 No Longer Active Luigi Martínez APRN Active LATUDA 80 MG TABS Take one by mouth daily LURASIDONE HCL 47490889487 No Longer Active Jillina Fralebron NORIEGA Active AMLODIPINE BESYLATE 5 MG TABS 1 tablet by mouth daily AMLODIPINE BESYLATE 74724377900 No Longer Active Jillina Fralebron TOBACCO DRYING MACHINE OPERATOR Active AMITRIPTYLINE HCL 100 MG TAB one at hs AMITRIPTYLINE HCL 07775238066 No Longer Active Vishal Hui MD Active TRAZODONE HCL 100 MG TAB take 1 at bedtime TRAZODONE HCL 84201094554 No Longer Active Vishal Hui MD Active VYVANSE 40 MG CAPS 1 daily, LISDEXAMFETAMINE DIMESYLATE 54457370173 No Longer Active Vishal Hui MD Active IBUPROFEN 600 MG TAB 1 po TID PRN IBUPROFEN 38360455882 No Longer Active Vishal Hui MD Active PROZAC 20 MG CAP Take one by mouth daily FLUOXETINE HCL 25700919199 No Longer Active Vishal Hui MD Active BACTRIM DS 800-160 MG TABS 1 pill by mouth twice daily SULFAMETHOXAZOLE-TRIMETHOPRIM 93286501441 No Longer Active Sahara Rodriguez MD PhD Active DIFLUCAN 150 MG TAB 1 tablet by mouth daily FLUCONAZOLE 39149263589 No Longer Active Vishal Hui MD Active TIZANIDINE HCL 4 MG TABS 1 po q6hr PRN Muscle Spasm/Back Pain TIZANIDINE HCL 30688565136 Active TAMARA Casey Active CLINDAMYCIN HCL 150 MG CAPS 1 four times a day CLINDAMYCIN HCL 66602844380 No Longer Active Neeraj Collins MD Active KEFLEX 500 MG ORAL CAPS 1 cap QID by mouth CEPHALEXIN 09003966471 No Longer Active Neeraj Collins MD Active DIFLUCAN 150 MG TABS 1 pill every other day x 2 doses FLUCONAZOLE 11722628708 No Longer Active Sahara Rodriguez MD PhD Active MELATONIN 3 MG CAPS 2 po q hs MELATONIN 35564751718 No Longer Active Sahara Rodriguez MD PhD Active MULTIVITAMINS CAPS Take one by mouth daily MULTIPLE VITAMIN 31173257283 No Longer Active Sahara Rodriguez MD PhD Active BACTRIM DS 800-160 MG TAB 1 tab by mouth twice daily TRIMETHOPRIM-SULFAMETHOXAZOLE 89781340717 No Longer Active Sahara Rodriguez MD PhD Active [facility] PROBIOTIC ORAL CHEW 2 daily po PROBIOTIC PRODUCT 54235447498 No Longer Active Sahara Rodriguez MD PhD Active BACTRIM DS 800-160 MG TABS 1 po BID x 7 days SULFAMETHOXAZOLE-TRIMETHOPRIM 14175219282 No Longer Active Vishal Hui MD Active CHANTIX STARTING MONTH EARNEST 0.5 MG X 11 & 1 MG X 42 TABS 0.5mg daily for 3 days , then 0.5mg BID for 4 days, then 1mg BID VARENICLINE TARTRATE 64671415901 No Longer Active TAMARA Gray Active VERAPAMIL HCL CR 120 MG TAB CR 1 po bid VERAPAMIL HCL 69609562838 No Longer Active Vishal Hui MD Active METOPROLOL SUCCINATE 50 MG TB24 1 tablet by mouth daily METOPROLOL SUCCINATE 49407377077 No Longer Active Vishal Hui MD Active SAPHRIS 10 MG SUBL 1 tab po bid ASENAPINE MALEATE 29475505807 No Longer Active Vishal Hui MD Active LISINOPRIL 20 MG TABS 1 tab po qd LISINOPRIL 50208068410 No Longer Active Vishal Hui MD Active LATUDA 20 MG TABS Take one by mouth daily LURASIDONE HCL 43576290792 No Longer Active Vishal Hui MD Active TRAZODONE HCL 50 MG TABS 1/2 tab po qd prn for anxiety TRAZODONE HCL 38786193077 No Longer Active Vishal Hui MD Active OMEPRAZOLE 20 MG TBEC 1 po q a.m. 30min prior to first food intake OMEPRAZOLE 70225072811 Active TAMARA Casey Active RANITIDINE HCL 150 MG CAPS 1 twice a day RANITIDINE HCL 06872950573 Active Lynda Xiao LPN Active LINZESS 290 MCG CAPS Take one by mouth daily LINACLOTIDE 88058273656 No Longer Active Vishal Hui MD Active SAPHRIS 5 MG SUBL 1 tab po qd ASENAPINE MALEATE 65122711808 No Longer Active Vishal Hui MD Active ZALEPLON 10 MG CAPS 1 cap po every other night ZALEPLON 45645175244 No Longer Active Vishal Hui MD Active LYRICA 50 MG CAPS 1 tab po TID PREGABALIN 88503421053 No Longer Active Vishal Hui MD Active LORATADINE 10 MG TABS 1 tab po qd LORATADINE 92018707806 No Longer Active Vishal Hui MD Active VERAPAMIL HCL ER 180 MG CR-TABS 1 tab po bid VERAPAMIL HCL 90451019357 No Longer Active Vishal Hui MD Active MIRALAX POWD 1 capfull once daily POLYETHYLENE GLYCOL 3350 49185932166 No Longer Active Vishal Hui MD Active PREDNISONE 20 MG TABS 1 tab po qd PREDNISONE 93304619131 No Longer Active Renzo Thornton DO Active LEVOFLOXACIN 500 MG TABS 1 tab po qd LEVOFLOXACIN 32959896962 No Longer Active Renzo Thornton DO Active BUSPIRONE HCL 15 MG TABS 1 tab po TID BUSPIRONE HCL 19939876325 No Longer Active Renzo Thornton DO Active BENZTROPINE MESYLATE 1 MG TABS 1 tab po qd BENZTROPINE MESYLATE 77804879619 No Longer Active Renzo Thornton DO Active ATENOLOL 25 MG TABS 1 tab po qd ATENOLOL 46332556380 No Longer Active Renzo Thornton DO Active ESCITALOPRAM OXALATE 20 MG TABS 1 tab po qd ESCITALOPRAM OXALATE 30805076489 No Longer Active Renzo Thornton DO Active ADVAIR DISKUS 250-50 MCG/DOSE AEPB 1 puff BID FLUTICASONE-SALMETEROL 81439994632 No Longer Active Renzo Thornton DO Active PREDNISONE 20 MG TAB 2 tabs daily for 3 days, 1 tab daily for 3 days, 1/2 tab daily for 2 days PREDNISONE 43859658887 No Longer Active Vishal Hui MD Active CEFDINIR 300 MG CAPS by mouth twice a day CEFDINIR 51590700095 No Longer Active Vishal Hui MD Active LANSOPRAZOLE 30 MG CPDR 1 cap po qd LANSOPRAZOLE 61361665021 No Longer Active Vishal Hui MD Active BACLOFEN 20 MG TABS 1 tab po tid BACLOFEN 10077747795 No Longer Active Vishal Hui MD Active ADVAIR DISKUS 250-50 MCG/DOSE AEPB 1 puff BID ADVAIR DISKUS 250-50 MCG/DOSE AEPB FLUTICASONE-SALMETEROL Inactive ESCITALOPRAM OXALATE 20 MG TABS 1 tab po qd ESCITALOPRAM OXALATE 20 MG TABS 111987 ESCITALOPRAM OXALATE Inactive ATENOLOL 25 MG TABS 1 tab po qd ATENOLOL 25 MG TABS 793152 ATENOLOL Inactive BENZTROPINE MESYLATE 1 MG TABS 1 tab po qd BENZTROPINE MESYLATE 1 MG TABS 489647 BENZTROPINE MESYLATE Inactive BUSPIRONE HCL 15 MG TABS 1 tab po TID BUSPIRONE HCL 15 MG TABS 625705 BUSPIRONE HCL Inactive LEVOFLOXACIN 500 MG TABS 1 tab po qd LEVOFLOXACIN 500 MG TABS 530090 LEVOFLOXACIN Inactive PREDNISONE 20 MG TABS 1 tab po qd PREDNISONE 20 MG TABS 446720 PREDNISONE Inactive MIRALAX POWD 1 capfull once daily MIRALAX POWD 309961 POLYETHYLENE GLYCOL 3350 Inactive VERAPAMIL HCL ER 180 MG CR-TABS 1 tab po bid VERAPAMIL HCL ER 180 MG CR-TABS VERAPAMIL HCL Inactive LORATADINE 10 MG TABS 1 tab po qd LORATADINE 10 MG TABS 155178 LORATADINE Inactive LYRICA 50 MG CAPS 1 tab po TID LYRICA 50 MG CAPS PREGABALIN Inactive ZALEPLON 10 MG CAPS 1 cap po every other night ZALEPLON 10 MG CAPS 913337 ZALEPLON Inactive SAPHRIS 5 MG SUBL 1 tab po qd SAPHRIS 5 MG SUBL ASENAPINE MALEATE Inactive TRAZODONE HCL 50 MG TABS 1/2 tab po qd prn for anxiety TRAZODONE HCL 50 MG TABS 516073 TRAZODONE HCL Inactive LATUDA 20 MG TABS Take one by mouth daily LATUDA 20 MG TABS LURASIDONE HCL Inactive LISINOPRIL 20 MG TABS 1 tab po qd LISINOPRIL 20 MG TABS 720890 LISINOPRIL Inactive SAPHRIS 10 MG SUBL 1 [...] twice daily BACTRIM DS 800-160 MG TAB 404631 TRIMETHOPRIM-SULFAMETHOXAZOLE Inactive MULTIVITAMINS CAPS Take one by mouth daily MULTIVITAMINS CAPS MULTIPLE VITAMIN Inactive MELATONIN 3 MG CAPS 2 po q hs MELATONIN 3 MG CAPS 19950526 MELATONIN Inactive KEFLEX 500 MG ORAL CAPS 1 cap QID by mouth KEFLEX 500 MG ORAL CAPS 842289 CEPHALEXIN Inactive CLINDAMYCIN HCL 150 MG CAPS 1 four times a day CLINDAMYCIN HCL 150 MG CAPS 340688 CLINDAMYCIN HCL Inactive DIFLUCAN 150 MG TAB 1 tablet by mouth daily DIFLUCAN 150 MG TAB 876116 FLUCONAZOLE Inactive PROZAC 20 MG CAP Take one by mouth daily PROZAC 20 MG CAP 503491 FLUOXETINE HCL Inactive IBUPROFEN 600 MG TAB 1 po TID PRN IBUPROFEN 600 MG TAB 766652 IBUPROFEN Inactive VYVANSE 40 MG CAPS 1 daily, VYVANSE 40 MG CAPS LISDEXAMFETAMINE DIMESYLATE Inactive TRAZODONE HCL 100 MG TAB take 1 at bedtime TRAZODONE HCL 100 MG TAB 701301 TRAZODONE HCL Inactive AMITRIPTYLINE HCL 100 MG TAB one at hs AMITRIPTYLINE HCL 100 MG TAB 646403 AMITRIPTYLINE HCL Inactive AMLODIPINE BESYLATE 5 MG TABS 1 tablet by mouth daily AMLODIPINE BESYLATE 5 MG TABS 909254 AMLODIPINE BESYLATE Inactive LATUDA 80 MG TABS Take one by mouth daily LATUDA 80 MG TABS LURASIDONE HCL Inactive SAPHRIS 5 MG SUBL 1 po bid SAPHRIS 5 MG SUBL ASENAPINE MALEATE Inactive PREDNISONE 20 MG TAB 2 tabs daily for 4 days, 1 tab daily for 4 days, 1/2 tab daily for 4 days PREDNISONE 20 MG TAB 882750 PREDNISONE Inactive AMBIEN 5 MG ORAL TABS 1 tab at bedtime AMBIEN 5 MG ORAL TABS 826776 ZOLPIDEM TARTRATE Inactive PROZAC 20 MG ORAL CAPS 1 tab daily PROZAC 20 MG ORAL CAPS 835594 FLUOXETINE HCL Inactive ABILIFY 15 MG ORAL TABS 1 tab daily ABILIFY 15 MG ORAL TABS 483884 ARIPIPRAZOLE Inactive METOPROLOL TARTRATE 50 MG TAB 1 po bid METOPROLOL TARTRATE 50 MG TAB 649473 METOPROLOL TARTRATE Inactive TRAMADOL HCL 50 MG TABS 1-2 po TID PRN Pain TRAMADOL HCL 50 MG TABS 121986 TRAMADOL HCL Inactive PIROXICAM 20 MG CAPS 1 cap po qd PRN Pain PIROXICAM 20 MG CAPS 227290 PIROXICAM Inactive MINIPRESS 2 MG CAPS 4 cap po at night MINIPRESS 2 MG CAPS 718537 PRAZOSIN HCL Inactive MIRALAX PACK 1 po qd PRN Constipation MIRALAX PACK 338839 POLYETHYLENE GLYCOL 3350 Inactive METOPROLOL TARTRATE 25 MG ORAL TABS 1/2 tablet twice daily for heart rate and blood pressure METOPROLOL TARTRATE 25 MG ORAL TABS 150983 METOPROLOL TARTRATE Inactive VALIUM 5 MG TAB Take 1-2 tablets daily VALIUM 5 MG TAB 958031 DIAZEPAM Inactive FLAGYL 500 MG TAB 1 tablet by mouth bid FLAGYL 500 MG TAB 529074 METRONIDAZOLE Inactive DICLOFENAC POTASSIUM TABS Take 1 tablet twice a day (pt. is not sure of the dose.) DICLOFENAC POTASSIUM TABS DICLOFENAC POTASSIUM TABS Inactive ZITHROMAX Z-EARNEST 250 MG TABS 2 today and then 1 daily for 4 days ZITHROMAX Z-EARNEST 250 MG TABS 9451059 AZITHROMYCIN Inactive PREDNISONE 20 MG TABS 2 daily for 5 days then 1 daily for 5 days PREDNISONE 20 MG TABS 735545 PREDNISONE Inactive PROAIR HFA 108 (90 BASE) MCG/ACT AERS 2 puffs four times a day as needed 2015 PROAIR HFA 108 (90 BASE) MCG/ACT AERS ALBUTEROL SULFATE Inactive HYDROCODONE-ACETAMINOPHEN 5-325 MG TABS 1 to 2 four times a day as needed for pain use until can be seen by specialist HYDROCODONE- ACETAMINOPHEN 5-325 MG TABS 803548 HYDROCODONE-ACETAMINOPHEN Inactive TESSALON PERLES 100 MG CAP 1 to 2 tablets by mouth 3 times daily as needed for cough TESSALON PERLES 100 MG CAP 664151 BENZONATATE Inactive CHANTIX STARTING MONTH EARNEST 0.5 [...] Pain 2015 DICLOFENAC SODIUM 50 MG TBEC 363352 DICLOFENAC SODIUM Inactive TOPAMAX 50 MG ORAL TABS 1 tab twice daily TOPAMAX 50 MG ORAL TABS 358628 TOPIRAMATE Inactive VIIBRYD 10 MG ORAL TABS Take 1 tablet once a day VIIBRYD 10 MG ORAL TABS VILAZODONE HCL Inactive LEVOFLOXACIN 500 MG ORAL TABS po daily LEVOFLOXACIN 500 MG ORAL TABS 869263 LEVOFLOXACIN Inactive METHYLPREDNISOLONE 4 MG ORAL TABS po daily METHYLPREDNISOLONE 4 MG ORAL TABS 937997 METHYLPREDNISOLONE Inactive OXYCODONE HCL ER 10 MG ORAL T12A 1/2 tab by mouth every 4 hours prn OXYCODONE HCL ER 10 MG ORAL T12A OXYCODONE HCL Inactive FLAGYL 500 MG TAB 1 tablet by mouth bid FLAGYL 500 MG TAB 558861 METRONIDAZOLE Inactive MONISTAT 7 COMBO PACK WOODROW 100 & 2 MG-% (9GM) VAG KIT 1 applicatorful per vagina q pm x 7 MONISTAT 7 COMBO PACK WOODROW 100 & 2 MG-% (9GM) VAG KIT MICONAZOLE NITRATE Inactive BACTRIM DS 800-160 MG TABS 1 twice a day BACTRIM DS 800-160 MG TABS 031925 SULFAMETHOXAZOLE-TRIMETHOPRIM Inactive TRAMADOL HCL 50 MG TABS 1/2-1 tab TID PRN TRAMADOL HCL 50 MG TABS 490450 TRAMADOL HCL Inactive ABILIFY MAINTENA 400 MG IM SUSR 400mg injection every 26 days ABILIFY MAINTENA 400 MG IM SUSR ARIPIPRAZOLE Inactive KLONOPIN 1 MG ORAL TABS 1 tab po TID KLONOPIN 1 MG ORAL TABS 923422 CLONAZEPAM Inactive ADVAIR DISKUS 250-50 MCG/DOSE INH AEPB 1 puff twice a day for asthma ADVAIR DISKUS 250-50 MCG/DOSE INH AEPB FLUTICASONE- SALMETEROL Inactive BENADRYL 25 MG CAP 4 po at bedtime for insomnia BENADRYL 25 MG CAP DIPHENHYDRAMINE HCL Inactive PREDNISONE 20 MG TABS 2 daily for 5 days then 1 daily for 5 days PREDNISONE 20 MG TABS [id number] PREDNISONE Inactive HYDROCODONE-ACETAMINOPHEN 5-325 MG ORAL TABS 1 tab two times a day HYDROCODONE-ACETAMINOPHEN 5-325 MG ORAL TABS [id number] HYDROCODONE-ACETAMINOPHEN Inactive ZITHROMAX Z-EARNEST 250 MG TABS 2 today and then 1 daily for 4 days ZITHROMAX Z-EARNEST 250 MG TABS [id number] AZITHROMYCIN Inactive GUAIFENESIN-CODEINE 100-10 MG/5ML SYRP 5ml every 4 to 6 hours as needed for cough GUAIFENESIN-CODEINE 100-10 MG/5ML SYRP [id number] GUAIFENESIN-CODEINE Inactive HALOPERIDOL 10 MG ORAL TABS 1 tab q.d HALOPERIDOL 10 MG ORAL TABS [id number] HALOPERIDOL Inactive ASPIRIN 325 MG ORAL TABS 1 tab q.d ASPIRIN 325 MG ORAL TABS 500783 ASPIRIN Inactive FLUTICASONE PROPIONATE 50 MCG/ACT SUSP 2 sprays each nostril daily before bed. FLUTICASONE PROPIONATE 50 MCG/ACT SUSP [id number] FLUTICASONE PROPIONATE Inactive ZOFRAN 4 MG TABS 1 po q6hr PRN Nausea ZOFRAN 4 MG TABS 978672 ONDANSETRON HCL Inactive KEFLEX 500 MG CAP 1 po qid KEFLEX 500 MG CAP 381402 CEPHALEXIN Inactive ACETAMINOPHEN-CODEINE 120-12 MG/5ML SOLN 5 ml by mouth every 4-6 hours if needed for cough ACETAMINOPHEN-CODEINE 120-12 MG/5ML SOLN 672283 ACETAMINOPHEN-CODEINE Inactive PREDNISONE 20 MG TAB 1 tablet daily x 4 days PREDNISONE 20 MG TAB 154226 PREDNISONE Inactive TROPICAMIDE 0.5 % OPHTH SOLN 1 drop PRN eye spasms TROPICAMIDE 0.5 % OPHTH SOLN 845301 TROPICAMIDE Inactive LEVAQUIN 500 MG TABS 1 daily for infection LEVAQUIN 500 MG TABS 999214 LEVOFLOXACIN Inactive PREDNISONE 10 MG TABS 2 daily for 5 days then 1 daily for 5 days PREDNISONE 10 MG TABS 179128 PREDNISONE Inactive EQ NICOTINE 21 MG/24HR TRANS [...] for cough TESSALON PERLES 100 MG CAPS 690965 BENZONATATE Inactive AMITIZA 8 MCG ORAL CAPS 1 tab BID AMITIZA 8 MCG ORAL CAPS LUBIPROSTONE Inactive LINZESS 290 MCG ORAL CAPS 1 tab 30 min prior to first meal each day. LINZESS 290 MCG ORAL CAPS LINACLOTIDE Inactive DIFLUCAN 150 MG TABS 1 by mouth for yeast DIFLUCAN 150 MG TABS 972519 FLUCONAZOLE Inactive BACTRIM DS 800-160 MG TABS 1 twice a day BACTRIM DS 800-160 MG TABS 19820521 SULFAMETHOXAZOLE-TRIMETHOPRIM Inactive MUPIROCIN 2 % OINT apply twice a day MUPIROCIN 2 % OINT 854338 MUPIROCIN Inactive BACTRIM DS 800-160 MG TAB Take one (1) tablet by mouth twice a day for 5 days BACTRIM DS 800-160 MG TAB 19820521 TRIMETHOPRIM- SULFAMETHOXAZOLE Inactive LACTULOSE 10 GM/15ML ORAL SOLN 30mL oral BID for IBS-C LACTULOSE 10 GM/15ML ORAL SOLN 313890 LACTULOSE Inactive MIRALAX ORAL POWD 17GMS DAILY IN WATER MIRALAX ORAL POWD 847961 POLYETHYLENE GLYCOL 3350 Inactive BACTRIM DS 800-160 MG TABS 1 twice a day BACTRIM DS 800-160 MG TABS 19820521 SULFAMETHOXAZOLE-TRIMETHOPRIM Inactive NYSTATIN 830179 UNIT/GM CREA apply three times a day to yeast rash NYSTATIN 508743 UNIT/GM CREA 434405 NYSTATIN Inactive CEFDINIR 300 MG CAPS by mouth twice a day CEFDINIR 300 MG CAPS 531209 CEFDINIR Inactive PREDNISONE 20 MG TAB 2 tabs daily for 3 days, 1 tab daily for 3 days, 1/2 tab daily for 2 days PREDNISONE 20 MG TAB 586032 PREDNISONE Inactive BACTRIM DS 800-160 MG TABS 1 po BID x 7 days BACTRIM DS 800-160 MG TABS 19820521 SULFAMETHOXAZOLE-TRIMETHOPRIM Inactive DIFLUCAN 150 MG TABS 1 pill every other day x 2 doses DIFLUCAN 150 MG TABS 254116 FLUCONAZOLE Inactive BACTRIM DS 800-160 MG TABS 1 pill by mouth twice daily BACTRIM DS 800-160 MG TABS 19820521 SULFAMETHOXAZOLE-TRIMETHOPRIM Inactive KEFLEX 500 MG CAP 1 po TID x 10 days KEFLEX 500 MG CAP 659158 CEPHALEXIN Inactive Advance Directives Directive Description Start [...] % 11.0-15.0 platelet count 443 THOUSAND/UL 10*3/mm3 490-490 8475/03/01 mean platelet volume 8.2 fL 7.5-12.5 leukocyte [...] % 11.0-15.0 platelet count 349 THOUSAND/UL 10*3/mm3 978-255 1066/04/12 mean platelet volume 8.4 fL 7.5-12.5 Lab Report: CBC W/DIFF, Comp. Metabolic Panel, HGBA1C, Magnesium - Chemistry sodium, serum 141 mmol/L [phone]/07/24 carbon dioxide, venous blood 27.8 mmol/L 21.0-32.0 [...] 369 10^3/MM^3 10*3/mm3 142-424 Lab Report: Chlamydia/GC APTIMA/36601 - Lab chlamydia DNA probe NOT DETECTED NOT DETECTED Lab Report: Chlamydia/GC APTIMA/20709 - Microbiology Neisseria gonorrhoeae DNA probe NOT DETECTED NOT DETECTED Lab Report: Chlamydia/GC APTIMA/58507, Urinalysis, Complete, with Reflex ... - Lab chlamydia DNA probe NOT DETECTED NOT DETECTED Lab Report: Chlamydia/GC APTIMA/59902, Urinalysis, Complete, with Reflex ... - Microbiology Neisseria gonorrhoeae DNA probe NOT DETECTED NOT DETECTED Lab Report: Chlamydia/GC APTIMA/15783, Urinalysis, Complete, with Reflex ... - Urinalysis microalbumin/total urine volume 2 mg/L Units converted. See lab report for original value. microalbumin/creatinine ratio, urine 9 MCG/MG CREAT mg/L <30 Lab Report: Comp. Metabolic Panel - Chemistry sodium, serum 140 mmol/L 391-317 8864/06/28 carbon dioxide, venous blood 23.8 mmol/L 21.0-32.0 [...] negative Encounters Code Encounter Date Provider Facility CPT-84217 Level 5 Est. Patient 12:01:37 CDT Maude Miranda [facility] CPT-16545 Level 3 Est. [facility] 11:36:[facility] Level 3 Est. Patient 10:53:17 [facility]-39741 Level 3 Est. Patient 11:08:35 [facility]64423 Level 3 Est. Patient 15:55:20 CDT Suzan Boo [facility] CPT-06143 Level 4 Est. Patient 10:49:34 CDT Suzan Boo [facility] CPT-72825 Level 3 Est. Patient 10:00:25 [facility]79684 Level 3 Est. Patient 10:29:30 CDT Suzan Boo [facility] CPT-69884 Level 3 Est. Patient 11:04:38 CDT Renzo Thornton [facility]-64166 Level 3 Est. Patient 11:15:58 SUBSTATION ENGINEER Renzo Thornton [facility]-85095 Level 3 Est. Patient 15:28:23 SUBSTATION ENGINEER Suzan Boo [facility]-91091 Level 4 Est. Patient 10:20:54 SUBSTATION ENGINEER Suzan Boo [facility] CPT-43568 Level 3 Est. Patient 11:47:37 SUBSTATION ENGINEER Ahmet Carbajal MD [facility]-26619 Level 3 Est. Patient 10:40:11 SUBSTATION ENGINEER Ahmet Carbajal MD [facility] CPT-95351 Level 3 Est. Patient 15:07:06 SUBSTATION ENGINEER Neeraj Collins MD [facility] CPT-83801 Level 4 Est. Patient 14:45:00 SUBSTATION ENGINEER Ahmet Carbajal MD [facility]-40622 Level 3 Est. Patient 13:59:59 CDT Luigi Martínez [facility] CPT-70268 Level 3 Est. Patient 18:18:53 CDT Neeraj Collins MD [facility] CPT-41988 Level 3 Est. Patient 15:50:44 CDT Vishal Hui MD [facility]-71128 Level 3 Est. Patient 11:36:17 CDT Ahmet Carbajal MD [facility] CPT-66521 Level 3 Est. Patient 13:29:16 CDT Vishal Hui MD [facility] CPT-52962 Level 3 Est. Patient 14:27:52 CDT Neeraj Collins MD [facility] CPT-09606 Level 3 Est. Patient 08:56:03 CDT Luigi Martínez [facility] CPT-75115 Level 4 Est. Patient 12:11:48 CDT Fabiola Johnson [facility] CPT-25700 Level 3 New Patient 16:53:37 CDT Albert Caldera MD [facility] CPT-09131 Level 3 Est. Patient 11:25:49 CDT Renzo Thornton DO [facility] CPT-11598 Level 3 Est. Patient 15:22:01 CDT Ahmet Carbajal MD [facility] CPT-18046 Level 4 Est. Patient 09:00:51 SUBSTATION ENGINEER Vishal Hui MD [facility] CPT-45016 Level 3 Est. Patient 11:37:33 SUBSTATION ENGINEER Vishal Hui MD [facility] CPT-94255 Level 3 Est. Patient 08:41:09 SUBSTATION ENGINEER Vishal Hui MD [facility] CPT-85957 Level 4 Est. Patient 10:19:35 SUBSTATION ENGINEER Vishal Hui MD [facility] CPT-11482 Level 3 Est. Patient 13:35:45 CDT Vishal Hui MD [facility] CPT-14272 Level 4 Est. Patient 10:08:37 CDT Visahl Hui MD [facility] CPT-28201 Level 3 Est. Patient 11:22:10 CDT Vishal Hui MD [facility] CPT-61809 Level 3 Est. Patient 11:03:32 CDT Sahara Rodriguez MD, PhD [facility] CPT-59029 Level 3 Est. Patient 09:41:35 CDT Vishal Hui MD [facility] CPT-31070 Level 3 Est. Patient 12:00:41 CDT Neeraj Collins MD [facility] CPT-50975 Level 3 Est. Patient 09:16:24 CDT Vishal Hui MD [facility] CPT-00402 Level 4 Est. Patient 13:59:09 CDT Neeraj Collins MD [facility] CPT-49788 Level 3 Est. Patient 15:19:43 CDT Renzo Thornton DO [facility] CPT-13774 Level 3 Est. Patient 18:10:26 CDT Sahara Rodriguez MD [facility]-89426 Level 3 Est. Patient 14:49:50 CDT Vishal Hui MD [facility] CPT-31147 Level 4 Est. Patient 18:41:46 CDT Neeraj Collins MD [facility] CPT-96181 Level 4 Est. Patient 09:18:38 SUBSTATION ENGINEER Vishal Hui MD [facility] CPT-98168 Level 3 Est. Patient 14:43:55 SUBSTATION ENGINEER Vishal Hui MD [facility] CPT-65627 Level 3 Est. Patient 15:26:33 SUBSTATION ENGINEER Sahara Rodriguez MD PhD [facility] CPT-57235 Level 3 Est. Patient 10:32:14 SUBSTATION ENGINEER Vishal Hui MD [facility] CPT-84816 Level 3 Est. Patient 15:12:52 SUBSTATION ENGINEER Vishal Hui MD [facility] CPT-66116 Level 4 Est. Patient 09:19:27 CDT Vishal Hui MD [facility] CPT-75073 Level 3 Est. Patient 15:53:00 CDT Renzo Thornton DO [facility] CPT-03377 Level 3 Est. Patient 15:50:30 CDT Renzo Thornton DO [facility] CPT-67608 Level 3 Est. Patient 16:55:24 CDT Vishal Hui MD [facility] Procedures Code Procedure Name Date Entry Date Standard Description CPT-23977 UA Dip Auto (Floor Use Only) 11:36:47 CDT CPT-51481 Venipuncture Draw Fee 10:53:17 CDT CPT-84859 EKG Trac and Interp - XRAY USE ONLY 15:59:30 CDT 09/13 CPT-76785 Chest 1V Frontal - XRAY USE ONLY 15:59:30 CDT CPT-13979 Venipuncture Draw Fee 15:44:02 CDT CPT-35431 Venipuncture Draw Fee 08:41:12 CDT CPT-28795 Abd compl w upright - XRAY USE ONLY 10:27:59 CDT 06/28 CPT-17520 Smoking Cessation counseling 11:15:58 SUBSTATION ENGINEER CPT-G0439 [facility] Annual Wellness Exam 09:30:58 SUBSTATION ENGINEER CPT-61365 TSH - LAB USE ONLY 08:50:26 SUBSTATION ENGINEER CPT-47995 CBC - LAB USE ONLY 08:50:26 SUBSTATION ENGINEER CPT-24824 Venipuncture Draw Fee 08:50:26 SUBSTATION ENGINEER CPT-45986 Abx/Therapy Injection 17:34:30 SUBSTATION ENGINEER CPT-03702 Nexplanon Removal with Reinsertion 14:09:32 CDT CPT-J7307 Nexplanon (Implant) 14:09:32 CDT CPT-OV Office Visit 14:09:32 CDT CPT-14221 UA w micro - LAB USE ONLY 16:21:13 CDT CPT-20828 Wet Mount - LAB USE ONLY 16:21:13 CDT CPT-81872 First Vx - Ix admin for Medicare patients 14:37:47 CDT CPT-46336 Fluzone Preservative Free Intramuscular Suspension 14:37 :47 CDT CPT-41639 Abx/Therapy Injection 13:54:22 CDT CPT-83538 Abx/Therapy Injection 08:47:09 CDT CPT-18796 Abx/Therapy Injection 13:29:56 CDT CPT-75588 Abx/Therapy Injection 08:36:16 CDT CPT-23225 Wet Mount - LAB USE ONLY 17:44:58 CDT CPT-36669 UA w micro - LAB USE ONLY 17:44:58 CDT CPT-31529 CMP - LAB USE ONLY 17:44:58 CDT CPT-56783 Venipuncture Draw Fee 17:44:58 CDT CPT-12378 Cervical Min 4V - XRAY USE ONLY 09:01:40 CDT CPT-23472 Chest 2V Frontal and Lat - XRAY USE ONLY 11:06:31 CDT CPT-70333 EKG Trac and Interp - XRAY USE ONLY 11:31:43 CDT 08/26 CPT-J3420 Vitamin B12 1000mcg (Cyanocobalamin) 08:10:26 SUBSTATION ENGINEER 04/12 CPT-03253 Abx/Therapy Injection 08:10:26 SUBSTATION ENGINEER CPT-G0438 Initial Annual Wellness Exam 19:01:01 SUBSTATION ENGINEER CPT-J3420 Vitamin B12 1000mcg (Cyanocobalamin) 16:57:46 CDT 08/14 CPT-35317 Recombivax HB Injection Suspension 5 MCG/0.5ML 08:37:50 SUBSTATION ENGINEER CPT-02597 Immunization Single Admin 08:37:50 SUBSTATION ENGINEER CPT-J3420 Vitamin B12 1000mcg (Cyanocobalamin) 08:32:16 SUBSTATION ENGINEER 03/11 CPT-62694 Abx/Therapy Injection 08:32:16 SUBSTATION ENGINEER CPT-74998 Chest 2V Frontal and Lat 11:46:38 SUBSTATION ENGINEER CPT-30961 Venipuncture Draw Fee 09:12:45 SUBSTATION ENGINEER CPT-J3420 Vitamin B12 1000mcg (Cyanocobalamin) 08:50:15 SUBSTATION ENGINEER 02/08 CPT-90877 Abx/Therapy Injection 08:50:15 SUBSTATION ENGINEER CPT-Cryo Cryotherapy 10:19:35 SUBSTATION ENGINEER CPT-000 Give Appropriate Flu Vaccine 09:22:16 CDT CPT-J3420 Vitamin B12 1000mcg (Cyanocobalamin) 19:08:57 CDT 01/11 CPT-52651 Abx/Therapy Injection 19:08:57 CDT CPT-J3420 Vitamin B12 1000mcg (Cyanocobalamin) 08:19:08 CDT 12/11 CPT-59902 Abx/Therapy Injection 08:19:08 CDT CPT-J3420 Vitamin B12 1000mcg (Cyanocobalamin) 14:48:00 CDT 11/09 CPT-87867 Abx/Therapy Injection 14:47:59 CDT CPT-J3420 Vitamin B12 1000mcg (Cyanocobalamin) 08:34:04 CDT 10/09 CPT-19668 Abx/Therapy Injection 08:34:04 CDT CPT-J3420 Vitamin B12 1000mcg (Cyanocobalamin) 09:18:52 CDT 09/11 CPT-05436 Abx/Therapy Injection 09:18:52 CDT CPT-J3420 Vitamin B12 1000mcg (Cyanocobalamin) 08:35:44 CDT 09/04 CPT-72558 Abx/Therapy Injection 08:35:44 CDT CPT-70647 Immunization Single Admin 11:07:16 CDT CPT-56001 Hepatitis B adult IM 11:07:16 CDT CPT-J3420 Vitamin B12 1000mcg (Cyanocobalamin) 11:00:49 CDT 08/28 CPT-J1040 Depo Medrol 80 mg (Methyl Prednisolone Acetate) 11:00: 49 CDT CPT-89507 Abx/Therapy Injection 11:00:49 CDT CPT-J1040 Depo Medrol 80 mg (Methyl Prednisolone Acetate) 09:16: 23 CDT CPT-J3420 Vitamin B12 1000mcg (Cyanocobalamin) 08:27:05 CDT 08/20 CPT-96004 Abx/Therapy Injection 08:27:05 CDT CPT-15885 Recombivax HB Injection Suspension 5 MCG/0.5ML 10:00:41 CDT CPT-31269 Administration single or combination vaccine inc oral 10 :00:41 CDT CPT-42434 Sono transvag pelvis non OB uterus ovaries cervix 16:36: 57 CDT CPT-86110 LS spine comp w obliq 09:50:55 SUBSTATION ENGINEER CPT-20059 Abd compl w upright 09:50:55 SUBSTATION ENGINEER CPT-J1100 Decadron 4mg (Dexamethasone) 15:51:24 SUBSTATION ENGINEER CPT-J1030 Depo Medrol 40 mg (Methyl Prednisolone Acetate) 15:51: 24 SUBSTATION ENGINEER CPT-32137 Abx/Therapy Injection 15:51:24 SUBSTATION ENGINEER CPT-J1100 Decadron 4mg (Dexamethasone) 15:26:33 SUBSTATION ENGINEER CPT-J1030 Depo Medrol 40 mg (Methyl Prednisolone Acetate) 15:26: 33 SUBSTATION ENGINEER CPT-32356 Sono retroperitoneal complete kidneys and bladder 17:15: 30 CDT CPT-60883 Abd compl w upright 16:09:25 CDT CPT-J1100 Decadron 8mg (Dexamethasone) 17:07:57 CDT CPT-75891 Abx/Therapy Injection 17:07:57 CDT CPT-J1100 Decadron 8mg (Dexamethasone) 16:55:24 CDT CPT-67016 Chest 2V Frontal and Lat 16:32:44 CDT
--- OUTSIDE RECORDS SUMMARY | 2016-11-04 15:38 | XMS REPORT | Clinical Summary ---
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 Juliet Kimbrough EMBEDDED CASE MANAGER Dependence on other enabling machines and devices [...] IM SUSR Injection once per month ARIPIPRAZOLE 00112031252 Active Juliet Kimbrough APRN Active PREDNISONE 20 MG TAB 2 tabs daily for 4 days, 1 tab daily for 4 days, 1/2 tab daily for 4 days PREDNISONE 36746945891 Active Vishal Hui MD Active IMITREX 50 MG ORAL TABS 1/2 tab every 6 hours prn SUMATRIPTAN SUCCINATE 03153874197 Active Jillina Mauricio NORIEGA Active AMBIEN 5 MG ORAL TABS 1 tab at bedtime ZOLPIDEM TARTRATE 09213541523 Active Pacollina Mauricio WALTERSN Active PROZAC 20 MG ORAL CAPS 1 tab daily FLUOXETINE HCL 48848473887 Active Tataina Mauricio WALTERSN Active ABILIFY 15 MG ORAL TABS 1 tab daily ARIPIPRAZOLE 67244129472 Active Pacollina Mauricio WALTERSN Active MINIPRESS 2 MG CAPS 4 cap po at night PRAZOSIN HCL 65828612673 Active Jillina Mauricio WALTERSN Active TOPAMAX 50 MG ORAL TABS 1 tab twice daily TOPIRAMATE 60818504894 Active Jillina Mauricio WALTERSN Active SAPHRIS 5 MG SUBL 1 po bid ASENAPINE MALEATE 74110255169 No Longer Active Jillina Fralebron WALTERSN Active LATUDA 80 MG TABS Take one by mouth daily LURASIDONE HCL 03719599644 No Longer Active Luigi Martínez APRN Active AMLODIPINE BESYLATE 5 MG TABS 1 tablet by mouth daily AMLODIPINE BESYLATE 93568437331 No Longer Active Luigi Martínez APRN Active AMITRIPTYLINE HCL 100 MG TAB one at hs AMITRIPTYLINE HCL 15475824433 No Longer Active Vishal Hui MD Active TRAZODONE HCL 100 MG TAB take 1 at bedtime TRAZODONE HCL 43623645305 No Longer Active Vishal Hui MD Active VYVANSE 40 MG CAPS 1 daily, LISDEXAMFETAMINE DIMESYLATE 46134931466 No Longer Active Vishal Hui MD Active IBUPROFEN 600 MG TAB 1 po TID PRN IBUPROFEN 57593413746 No Longer Active Vishal Hui MD Active MIRALAX PACK 1 po qd PRN Constipation POLYETHYLENE GLYCOL 3350 46173381493 Active Vishal Hui MD Active PROZAC 20 MG CAP Take one by mouth daily FLUOXETINE HCL 08460841861 No Longer Active Vishal Hui MD Active ZOFRAN 4 MG TABS 1 po q6hr PRN Nausea ONDANSETRON HCL Active Vishal Hui MD Active BACTRIM DS 800-160 MG TABS 1 pill by mouth twice daily SULFAMETHOXAZOLE-TRIMETHOPRIM 08399986722 No Longer Active Sahara Rodriguez MD PhD Active DIFLUCAN 150 MG TAB 1 tablet by mouth daily FLUCONAZOLE 59128101261 No Longer Active Vishal Hui MD Active TIZANIDINE HCL 4 MG TABS 1 po q6hr PRN Muscle Spasm/Back Pain TIZANIDINE HCL 23312971187 Active Luigi Martínez APRN Active CLINDAMYCIN HCL 150 MG CAPS 1 four times a day CLINDAMYCIN HCL 67030528084 No Longer Active Neeraj Collins MD Active KEFLEX 500 MG ORAL CAPS 1 cap QID by mouth CEPHALEXIN 97475341001 No Longer Active Neeraj Collins MD Active DIFLUCAN 150 MG TABS 1 pill every other day x 2 doses FLUCONAZOLE 81368250203 No Longer Active Sahara Rodriguez MD PhD Active MELATONIN 3 MG CAPS 2 po q hs MELATONIN 73104639055 No Longer Active Sahara Rodriguez MD PhD Active MULTIVITAMINS CAPS Take one by mouth daily MULTIPLE VITAMIN 51633703071 No Longer Active Sahara Rodriguez MD PhD Active BACTRIM DS 800-160 MG TAB 1 tab by mouth twice daily TRIMETHOPRIM-SULFAMETHOXAZOLE 29709969026 No Longer Active Sahara Rodriguez MD PhD Active [facility] PROBIOTIC ORAL CHEW 2 daily po PROBIOTIC PRODUCT 12835260010 No Longer Active Sahara Rodriguez MD PhD Active BACTRIM DS 800-160 MG TABS 1 po BID x 7 days SULFAMETHOXAZOLE-TRIMETHOPRIM 55743123140 No Longer Active Vishal Hui MD Active CHANTIX STARTING MONTH EARNEST 0.5 MG X 11 & 1 MG X 42 TABS 0.5mg daily for 3 days , then 0.5mg BID for 4 days, then 1mg BID VARENICLINE TARTRATE 43225432533 No Longer Active TAMARA Gray Active METOPROLOL TARTRATE 50 MG TAB 1 po bid METOPROLOL TARTRATE 33139170401 Active Vishal Hui MD Active VERAPAMIL HCL CR 120 MG TAB CR 1 po bid VERAPAMIL HCL 91987461152 No Longer Active Vishal Hui MD Active METOPROLOL SUCCINATE 50 MG TB24 1 tablet by mouth daily METOPROLOL SUCCINATE 75248927603 No Longer Active Vishal Hui MD Active TRAMADOL HCL 50 MG TABS 1-2 po TID PRN Pain TRAMADOL HCL 13762523324 Active Luigi Martínez APRN Active SAPHRIS 10 MG SUBL 1 tab po bid ASENAPINE MALEATE 52398182134 No Longer Active Vishal Hui MD Active LISINOPRIL 20 MG TABS 1 tab po qd LISINOPRIL 00407444049 No Longer Active Vishal Hui MD Active BENADRYL 25 MG CAP 2 po tid prn anxiety DIPHENHYDRAMINE HCL 72377795117 Active Vishal Hui MD Active LATUDA 20 MG TABS Take one by mouth daily LURASIDONE HCL 29474107234 No Longer Active Vishal Hui MD Active TRAZODONE HCL 50 MG TABS 1/2 tab po qd prn for anxiety TRAZODONE HCL 12133466440 No Longer Active Vishal Hui MD Active PIROXICAM 20 MG CAPS 1 cap po qd PRN Pain PIROXICAM 43637643914 Active Vishal Hui MD Active OMEPRAZOLE 20 MG TBEC 1 po q a.m. 30min prior to first food intake OMEPRAZOLE 01819079301 Active Vishal Hui MD Active RANITIDINE HCL 150 MG CAPS 1 twice a day RANITIDINE HCL 36996035322 Active Vishal Hui MD Active LINZESS 290 MCG CAPS Take one by mouth daily LINACLOTIDE 33229838968 No Longer Active Vishal Hui MD Active SAPHRIS 5 MG SUBL 1 tab po qd ASENAPINE MALEATE 45965134679 No Longer Active Vishal Hui MD Active ZALEPLON 10 MG CAPS 1 cap po every other night ZALEPLON 95664079010 No Longer Active Vishal Hui MD Active LYRICA 50 MG CAPS 1 tab po TID PREGABALIN 79079824039 No Longer Active Vishal Hui MD Active LORATADINE 10 MG TABS 1 tab po qd LORATADINE 59061825680 No Longer Active Vishal Hui MD Active VERAPAMIL HCL ER 180 MG CR-TABS 1 tab po bid VERAPAMIL HCL 06036733450 No Longer Active Vishal Hiu MD Active MIRALAX POWD 1 capfull once daily POLYETHYLENE GLYCOL 3350 91524986226 No Longer Active Vishal Hui MD Active PREDNISONE 20 MG TABS 1 tab po qd PREDNISONE 98108779442 No Longer Active Renzo Thornton DO Active LEVOFLOXACIN 500 MG TABS 1 tab po qd LEVOFLOXACIN 21828796033 No Longer Active Renzo Thornton DO Active BUSPIRONE HCL 15 MG TABS 1 tab po TID BUSPIRONE HCL 45484394082 No Longer Active Renzo Thornton DO Active BENZTROPINE MESYLATE 1 MG TABS 1 tab po qd BENZTROPINE MESYLATE 08413387133 No Longer Active Renzo Thornton DO Active ATENOLOL 25 MG TABS 1 tab po qd ATENOLOL 94107508307 No Longer Active Renzo Thornton DO Active ESCITALOPRAM OXALATE 20 MG TABS 1 tab po qd ESCITALOPRAM OXALATE 66630662939 No Longer Active Renzo Thornton DO Active ADVAIR DISKUS 250-50 MCG/DOSE AEPB 1 puff BID FLUTICASONE-SALMETEROL 43970465456 No Longer Active Renzo Thornton DO Active PREDNISONE 20 MG TAB 2 tabs daily for 3 days, 1 tab daily for 3 days, 1/2 tab daily for 2 days PREDNISONE 69164243274 No Longer Active Vishal Hui MD Active CEFDINIR 300 MG CAPS by mouth twice a day CEFDINIR 81447716304 No Longer Active Vishal Hui MD Active LANSOPRAZOLE 30 MG CPDR 1 cap po qd LANSOPRAZOLE 96919064270 No Longer Active Vishal Hui MD Active BACLOFEN 20 MG TABS 1 tab po tid BACLOFEN 98261911572 No Longer Active Vishal Hui MD Active ADVAIR DISKUS 250-50 MCG/DOSE AEPB 1 puff BID ADVAIR DISKUS 250-50 MCG/DOSE AEPB FLUTICASONE-SALMETEROL Inactive ESCITALOPRAM OXALATE 20 MG TABS 1 tab po qd ESCITALOPRAM OXALATE 20 MG TABS 410256 ESCITALOPRAM OXALATE Inactive ATENOLOL 25 MG TABS 1 tab po qd ATENOLOL 25 MG TABS 467415 ATENOLOL Inactive BENZTROPINE MESYLATE 1 MG TABS 1 tab po qd BENZTROPINE MESYLATE 1 MG TABS 003654 BENZTROPINE MESYLATE Inactive BUSPIRONE HCL 15 MG TABS 1 tab po TID BUSPIRONE HCL 15 MG TABS 866753 BUSPIRONE HCL Inactive LEVOFLOXACIN 500 MG TABS 1 tab po qd LEVOFLOXACIN 500 MG TABS 850612 LEVOFLOXACIN Inactive PREDNISONE 20 MG TABS 1 tab po qd PREDNISONE 20 MG TABS 588174 PREDNISONE Inactive MIRALAX POWD 1 capfull once daily MIRALAX POWD 531762 POLYETHYLENE GLYCOL 3350 Inactive VERAPAMIL HCL ER 180 MG CR-TABS 1 tab po bid VERAPAMIL HCL ER 180 MG CR-TABS VERAPAMIL HCL Inactive LORATADINE 10 MG TABS 1 tab po qd LORATADINE 10 MG TABS 692058 LORATADINE Inactive LYRICA 50 MG CAPS 1 tab po TID LYRICA 50 MG CAPS PREGABALIN Inactive ZALEPLON 10 MG CAPS 1 cap po every other night ZALEPLON 10 MG CAPS 124277 ZALEPLON Inactive SAPHRIS 5 MG SUBL 1 tab po qd SAPHRIS 5 MG SUBL ASENAPINE MALEATE Inactive TRAZODONE HCL 50 MG TABS 1/2 tab po qd prn for anxiety TRAZODONE HCL 50 MG TABS 800231 TRAZODONE HCL Inactive LATUDA 20 MG TABS Take one by mouth daily LATUDA 20 MG TABS LURASIDONE HCL Inactive LISINOPRIL 20 MG TABS 1 tab po qd LISINOPRIL 20 MG TABS 611011 LISINOPRIL Inactive SAPHRIS 10 MG SUBL 1 [...] twice daily BACTRIM DS 800-160 MG TAB 605823 TRIMETHOPRIM-SULFAMETHOXAZOLE Inactive MULTIVITAMINS CAPS Take one by mouth daily MULTIVITAMINS CAPS MULTIPLE VITAMIN Inactive MELATONIN 3 MG CAPS 2 po q hs MELATONIN 3 MG CAPS 651043 MELATONIN Inactive KEFLEX 500 MG ORAL CAPS 1 cap QID by mouth KEFLEX 500 MG ORAL CAPS 542140 CEPHALEXIN Inactive CLINDAMYCIN HCL 150 MG CAPS 1 four times a day CLINDAMYCIN HCL 150 MG CAPS 339377 CLINDAMYCIN HCL Inactive DIFLUCAN 150 MG TAB 1 tablet by mouth daily DIFLUCAN 150 MG TAB 133433 FLUCONAZOLE Inactive PROZAC 20 MG CAP Take one by mouth daily PROZAC 20 MG CAP 547607 FLUOXETINE HCL Inactive IBUPROFEN 600 MG TAB 1 po TID PRN IBUPROFEN 600 MG TAB 976484 IBUPROFEN Inactive VYVANSE 40 MG CAPS 1 daily, VYVANSE 40 MG CAPS LISDEXAMFETAMINE DIMESYLATE Inactive TRAZODONE HCL 100 MG TAB take 1 at bedtime TRAZODONE HCL 100 MG TAB 910865 TRAZODONE HCL Inactive AMITRIPTYLINE HCL 100 MG TAB one at hs AMITRIPTYLINE HCL 100 MG TAB 113264 AMITRIPTYLINE HCL Inactive AMLODIPINE BESYLATE 5 MG TABS 1 tablet by mouth daily AMLODIPINE BESYLATE 5 MG TABS 670307 AMLODIPINE BESYLATE Inactive LATUDA 80 MG TABS Take one by mouth daily LATUDA 80 MG TABS LURASIDONE HCL Inactive SAPHRIS 5 MG SUBL 1 po bid SAPHRIS 5 MG SUBL ASENAPINE MALEATE Inactive CEFDINIR 300 MG CAPS by mouth twice a day CEFDINIR 300 MG CAPS 808366 CEFDINIR Inactive PREDNISONE 20 MG TAB 2 tabs daily for 3 days, 1 tab daily for 3 days, 1/2 tab daily for 2 days PREDNISONE 20 MG TAB 122388 PREDNISONE Inactive BACTRIM DS 800-160 MG TABS 1 po BID x 7 days BACTRIM DS 800-160 MG TABS 381888 SULFAMETHOXAZOLE-TRIMETHOPRIM Inactive DIFLUCAN 150 MG TABS 1 pill every other day x 2 doses DIFLUCAN 150 MG TABS 234503 FLUCONAZOLE Inactive BACTRIM DS 800-160 MG TABS [...] % 11.6-14.8 platelet count 394 10^3/MM^3 10*3/mm3 312-567 9884/01/11 leukocyte count, blood 13.8 10^3/MM^3 10*3/mm3 4.6-10.2 [...] Panel - Chemistry sodium, serum 139 mmol/L 911-535 6455/12/03 carbon dioxide, venous blood 28.5 mmol/L 21.0-32.0 [...] 5.5 % 4.3-6.0 cholesterol, serum 159 mg/dL 549-183 9834/12/03 triglyceride, serum, fasting 118 mg/dL 30-200 HDL [...] ... - Chemistry sodium, serum 140 mmol/L 169-526 2223/05/28 potassium, serum 4.2 mmol/L 3.5-5.2 chloride, serum [...] Panel - Chemistry sodium, serum 141 mmol/L 392-846 3502 potassium, serum 4.3 mmol/L 3.5-5.2 chloride, serum 106 mmol/L 98-107 carbon dioxide, venous blood 25.7 mmol/L 21.0-32.0 blood glucose 119 mg/dL 65-110 urea nitrogen, blood 22 mg/dL 7-18 creatinine, serum 0.90 mg/dL 0.60-1.30 alanine aminotransferase (SGPT), serum 28 U/L -78 aspartate aminotransferase (SGOT), serum 13 U/L 15-37 calcium, serum 8.5 mg/dL 8.5-10.1 bilirubin, serum, total 0.20 mg/dL 0.00-1.00 sodium, serum 139 mmol/L 202-877 3422/12/22 carbon dioxide, venous blood 26.8 mmol/L 21.0-32.0 potassium, serum 4.2 mmol/L 3.5-5.2 chloride, serum 103 mmol/L 98-107 blood glucose 115 mg/dL 65-110 urea nitrogen, blood 20 mg/dL 7-18 creatinine, serum 0.90 mg/dL 0.55-1.30 alanine aminotransferase (SGPT), serum 38 U/L -78 aspartate aminotransferase (SGOT), serum 19 U/L 15-37 calcium, serum 8.6 mg/dL 8.5-10.1 bilirubin, serum, total 0.30 mg/dL 0.00-1.00 sodium, serum 139 mmol/L 986-661 0430/01/11 carbon dioxide, venous blood 26.6 mmol/L 21.0-32.0 [...] Rate - Chemistry sodium, serum 139 mmol/L 820-913 9901/12/11 carbon dioxide, venous blood 25.4 mmol/L 21.0-32.0 [...] 5.5 5.0-8.5 Lab Report: [facility] Chemistry protein, total urine random [...] semiquantitative 7.0 5.0-8.5 Lab Report: Varicella-Zoater Inga IgG,IgM/09459, HEP Be Antibody/556, RUB ... - Serology rubella antibody, serum, IgG 2.88 Encounters Code Encounter Date Provider Facility CPT-68930 Level 4 Est. Patient 09:00:51 TRACK FITTER Vishal Hui MD [facility] CPT-35565 Level 3 Est. Patient 11:37:33 TRACK FITTER Vishal Hui MD [facility] CPT-75098 Level 3 Est. Patient 08:41:09 TRACK FITTER Vishal Hui MD [facility] CPT-48801 Level 4 Est. Patient 10:19:35 TRACK FITTER Vishal Hui MD [facility] CPT-00721 Level 3 Est. Patient 13:35:45 CDT Vishal Hui MD [facility] CPT-85001 Level 4 Est. Patient 10:08:37 CDT Vishal Hui MD [facility] CPT-68258 Level 3 Est. Patient 11:22:10 CDT Vishal Hui MD [facility] CPT-65827 Level 3 Est. Patient 11:03:32 CDT Sahara Rodriguez MD [facility]-95394 Level 3 Est. Patient 09:41:35 CDT Vishal Hui MD [facility] CPT-97272 Level 3 Est. Patient 12:00:41 CDT Neeraj Collins MD [facility] CPT-06923 Level 3 Est. Patient 09:16:24 CDT Vishal Hui MD [facility] CPT-87782 Level 4 Est. Patient 13:59:09 CDT Neeraj Collins MD [facility] CPT-51500 Level 3 Est. Patient 15:19:43 CDT Renzo Thornton DO [facility] CPT-45282 Level 3 Est. Patient 18:10:26 CDT Sahara Rodriguez MD [facility]-74793 Level 3 Est. Patient 14:49:50 CDT Vishal Hui MD [facility] CPT-36684 Level 4 Est. Patient 18:41:46 CDT Neeraj Collins MD [facility] CPT-69888 Level 4 Est. Patient 09:18:38 TRACK FITTER Vishal Hui MD [facility] CPT-00733 Level 3 Est. Patient 14:43:55 TRACK FITTER Vishal Hui MD [facility] CPT-54800 Level 3 Est. Patient 15:26:33 TRACK FITTER Sahara Rodriguez MD [facility] CPT-99197 Level 3 Est. Patient 10:32:14 TRACK FITTER Vishal Hui MD [facility] CPT-40066 Level 3 Est. Patient 15:12:52 TRACK FITTER Vishal Hui MD [facility] CPT-87439 Level 4 Est. Patient 09:19:27 CDT Vishal Hui MD [facility] CPT-87300 Level 3 Est. Patient 15:53:00 CDT Renzo Thornton [facility] CPT-52102 Level 3 Est. Patient 15:50:30 CDT Renzo Thornton [facility] CPT-20711 Level 3 Est. Patient 16:55:24 CDT Vishal Hui MD [facility] Procedures Code Procedure Name Date Entry Date Standard Description CPT-G0438 Initial Annual Wellness Exam 19:01:01 TRACK FITTER CPT-J3420 Vitamin B12 1000mcg (Cyanocobalamin) 16:57:46 CDT 08/14 CPT-82282 Recombivax HB Injection Suspension 5 MCG/0.5ML 08:37:50 TRACK FITTER CPT-73669 Immunization Single Admin 08:37:50 TRACK FITTER CPT-J3420 Vitamin B12 1000mcg (Cyanocobalamin) 08:32:16 TRACK FITTER 03/11 CPT-13512 Abx/Therapy Injection 08:32:16 TRACK FITTER CPT-84935 Chest 2V Frontal and Lat 11:46:38 TRACK FITTER CPT-65672 Venipuncture Draw Fee 09:12:45 TRACK FITTER CPT-J3420 Vitamin B12 1000mcg (Cyanocobalamin) 08:50:15 TRACK FITTER 02/08 CPT-48700 Abx/Therapy Injection 08:50:15 TRACK FITTER CPT-Cryo Cryotherapy 10:19:35 TRACK FITTER CPT-000 Give Appropriate Flu Vaccine 09:22:16 CDT CPT-J3420 Vitamin B12 1000mcg (Cyanocobalamin) 19:08:57 CDT 01/11 CPT-79959 Abx/Therapy Injection 19:08:57 CDT CPT-J3420 Vitamin B12 1000mcg (Cyanocobalamin) 08:19:08 CDT 12/11 CPT-83797 Abx/Therapy Injection 08:19:08 CDT CPT-J3420 Vitamin B12 1000mcg (Cyanocobalamin) 14:48:00 CDT 11/09 CPT-86360 Abx/Therapy Injection 14:47:59 CDT CPT-J3420 Vitamin B12 1000mcg (Cyanocobalamin) 08:34:04 CDT 10/09 CPT-04493 Abx/Therapy Injection 08:34:04 CDT CPT-J3420 Vitamin B12 1000mcg (Cyanocobalamin) 09:18:52 CDT 09/11 CPT-13343 Abx/Therapy Injection 09:18:52 CDT CPT-J3420 Vitamin B12 1000mcg (Cyanocobalamin) 08:35:44 CDT 09/04 CPT-86601 Abx/Therapy Injection 08:35:44 CDT CPT-50771 Immunization Single Admin 11:07:16 CDT CPT-50132 Hepatitis B adult IM 11:07:16 CDT CPT-J3420 Vitamin B12 1000mcg (Cyanocobalamin) 11:00:49 CDT 08/28 CPT-J1040 Depo Medrol 80 mg (Methyl Prednisolone Acetate) 11:00: 49 CDT CPT-59956 Abx/Therapy Injection 11:00:49 CDT CPT-J1040 Depo Medrol 80 mg (Methyl Prednisolone Acetate) 09:16: 23 CDT CPT-J3420 Vitamin B12 1000mcg (Cyanocobalamin) 08:27:05 CDT 08/20 CPT-30062 Abx/Therapy Injection 08:27:05 CDT CPT-87158 Recombivax HB Injection Suspension 5 MCG/0.5ML 10:00:41 CDT CPT-79276 Administration single or combination vaccine inc oral 10 :00:41 CDT CPT-58430 Sono transvag pelvis non OB uterus ovaries cervix 16:36: 57 CDT CPT-15022 LS spine comp w obliq 09:50:55 TRACK FITTER CPT-28940 Abd compl w upright 09:50:55 TRACK FITTER CPT-J1100 Decadron 4mg (Dexamethasone) 15:51:24 TRACK FITTER CPT-J1030 Depo Medrol 40 mg (Methyl Prednisolone Acetate) 15:51: 24 TRACK FITTER CPT-23795 Abx/Therapy Injection 15:51:24 TRACK FITTER CPT-J1100 Decadron 4mg (Dexamethasone) 15:26:33 TRACK FITTER CPT-J1030 Depo Medrol 40 mg (Methyl Prednisolone Acetate) 15:26: 33 TRACK FITTER CPT-85458 Sono retroperitoneal complete kidneys and bladder 17:15: 30 CDT CPT-89488 Abd compl w upright 16:09:25 CDT CPT-J1100 Decadron 8mg (Dexamethasone) 17:07:57 CDT CPT-30736 Abx/Therapy Injection 17:07:57 CDT CPT-J1100 Decadron 8mg (Dexamethasone) 16:55:24 CDT CPT-47092 Chest 2V Frontal and Lat 16:32:44 CDT
--- OUTSIDE RECORDS SUMMARY | 2016-11-04 15:41 | XMS REPORT | Clinical Summary ---
Author Author Admin, FLOR Organization [employer] Address Unknown Phone Unavailable Allergies, Adverse Reactions, Alerts Allergy Name Reaction Description Start Date Severity Status Provider REQUIP Unsure of reaction, states that she was in severe pain Critical Active Ahmet Carbajal MD AMITRIPTYLINE HCL Mood changes. LDA MA Critical Active Vishal Hui MD FANAPT heart palpitations Critical Active Vishal Hui MD SEROQUEL Critical Active Vishal Hui MD AUGMENTIN Critical Active Vishal uHi MD AMOXICILLIN Critical Active Vishal Hui MD [...] sites Morbid obesity 278.01 Active Juliet Kimbrough STICKER MACHINE OPERATOR Morbid obesity 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 [...] breath Nocturnal hypoxia 799.02 Active Fabiola Johnson STICKER MACHINE OPERATOR Hypoxemia Neck pain 723.1 Resolved Vishal [...] fibula Vaginal discharge 623.5 Active Luigi Martínez STICKER MACHINE OPERATOR Leukorrhea, not specified as infective DYSURIA [...] MD 2014 Vaginitis, candidal ICD-112.1 Inactive Vishal Hiu MD Other abnormal blood chemistry ICD-790.6 Inactive [...] as needed for pseudoseizures or anxiety CLONAZEPAM 64326577405 Active Ahmet Carbajal MD Active HYDROCODONE-ACETAMINOPHEN 5-325 MG ORAL TABS 1 tab two times a day HYDROCODONE-ACETAMINOPHEN 81483313307 No Longer Active Ahmet Carbajal MD Active LAMICTAL 100 MG ORAL TABS 1 tab 2 times qd. LAMOTRIGINE 25684745757 Active Ahmet Carbajal MD Active PREDNISONE 20 MG TABS 2 daily for 5 days then 1 daily for 5 days PREDNISONE 85863281660 No Longer Active Ahmet Carbajal MD Active FLUTICASONE PROPIONATE 50 MCG/ACT SUSP 1 to 2 sprays each nostril daily for allergies FLUTICASONE PROPIONATE 23580037845 Active Tila Valenzuela Active GUAIFENESIN-CODEINE 100-10 MG/5ML SYRP 5ml every 4 to 6 hours as needed for cough GUAIFENESIN-CODEINE 48373990601 Active Ahmet Carbajal MD Active BENADRYL 25 MG CAP 4 po at bedtime for insomnia DIPHENHYDRAMINE HCL 35889382730 No Longer Active Ahmet Carbajal MD Active ADVAIR DISKUS 250-50 MCG/DOSE INH AEPB 1 puff twice a day for asthma FLUTICASONE-SALMETEROL 03165526851 No Longer Active Ahmet Carbajal MD Active KLONOPIN 1 MG ORAL TABS 1 tab po TID CLONAZEPAM 44219839063 No Longer Active Ahmet Carbajal MD Active ABILIFY MAINTENA 400 MG IM SUSR 400mg injection every 26 days ARIPIPRAZOLE 33459510509 No Longer Active Ahmet Carbajal MD Active HALOPERIDOL 10 MG ORAL TABS 1 tab q.d HALOPERIDOL 85066191930 Active Ahmet Carbajal MD Active ASPIRIN 325 MG ORAL TABS 1 tab q.d ASPIRIN 85962460130 Active Ahmet Carbajal MD Active TRAMADOL HCL 50 MG TABS 1/2-1 tab TID PRN TRAMADOL HCL 27819590325 No Longer Active Ahmet Carbajal MD Active BACTRIM DS 800-160 MG TABS 1 twice a day SULFAMETHOXAZOLE- TRIMETHOPRIM 13681746719 No Longer Active Ahmet Carbajal MD Active PROAIR HFA 108 (90 BASE) MCG/ACT AERS 2 puffs four times a day as needed 2015 ALBUTEROL SULFATE 18256278207 Active Ahmet Carbajal MD Active EQ NICOTINE 21 MG/24HR TRANS PT24 Apply daily to stop smoking NICOTINE 26791506380 Active Ahmet Carbajal MD Active MONISTAT 7 COMBO PACK WOODROW 100 & 2 MG-% (9GM) VAG KIT 1 applicatorful per vagina q pm x 7 MICONAZOLE NITRATE 37536491649 No Longer Active Ahmet Carbajal MD Active FLAGYL 500 MG TAB 1 tablet by mouth bid METRONIDAZOLE 83259837874 No Longer Active Ahmet Carbajal MD Active OXYCODONE HCL ER 10 MG ORAL T12A 1/2 tab by mouth every 4 hours prn OXYCODONE HCL 77152502172 No Longer Active Ahmet Carbajal MD Active METHYLPREDNISOLONE 4 MG ORAL TABS po daily METHYLPREDNISOLONE 13058010475 No Longer Active Ahmet Carbajal MD Active LEVOFLOXACIN 500 MG ORAL TABS po daily LEVOFLOXACIN 02949045862 No Longer Active Ahmet Carbajal MD Active VIIBRYD 10 MG ORAL TABS Take 1 tablet once a day VILAZODONE HCL 46954543320 No Longer Active Ahmet Carbajal MD Active TOPAMAX 50 MG ORAL TABS 1 tab twice daily TOPIRAMATE 83379743523 No Longer Active Ahmet Carbajal MD Active DICLOFENAC SODIUM 50 MG TBEC 1 tablet by mouth four times daily PRN Pain 2015 DICLOFENAC SODIUM 23159178921 No Longer Active Ahmet Carbajal MD Active ADZENYS XR-ODT 6.3 MG ORAL TBED 1 tab po daily for ADHD AMPHETAMINE 12763065506 No Longer Active Ahmet Carbajal MD Active CHANTIX 1 MG TABS 1 twice a day to help quit smoking VARENICLINE TARTRATE 32180175262 No Longer Active Dipika Burgos MD Active CHANTIX STARTING MONTH EARNEST 0.5 MG X 11 & 1 MG X 42 TABS take as directed 2015 VARENICLINE TARTRATE 82930255810 No Longer Active Dipika Burgos MD Active TESSALON PERLES 100 MG CAP 1 to 2 tablets by mouth 3 times daily as needed for cough BENZONATATE 93325579852 No Longer Active Luigi Martínez APRN Active IMITREX 50 MG ORAL TABS 0.5 po x 1 PRN Headache. May repeat dose x 1 in 2 hours if needed SUMATRIPTAN SUCCINATE 77886523588 Active Ahmet Carbajal MD Active HYDROCODONE-ACETAMINOPHEN 5-325 MG TABS 1 to 2 four times a day as needed for pain use until can be seen by specialist HYDROCODONE- ACETAMINOPHEN 87692955275 No Longer Active Vishal Hui MD Active PROAIR HFA 108 (90 BASE) MCG/ACT AERS 2 puffs four times a day as needed 2015 ALBUTEROL SULFATE 05320426248 No Longer Active Vishal Hui MD Active PREDNISONE 20 MG TABS 2 daily for 5 days then 1 daily for 5 days PREDNISONE 43475500175 No Longer Active Vishal Hui MD Active ZITHROMAX Z-EARNEST 250 MG TABS 2 today and then 1 daily for 4 days AZITHROMYCIN 58991612862 No Longer Active Vishal Hui MD Active DICLOFENAC POTASSIUM TABS Take 1 tablet twice a day (pt. is not sure of the dose.) DICLOFENAC POTASSIUM TABS 57698623843 No Longer Active Vishal Hui MD Active VERAPAMIL HCL ER 120 MG ORAL CR-TABS Take 1 tablet by mouth twice a day. VERAPAMIL HCL 22070644470 Active Vishal Hui MD Active FLAGYL 500 MG TAB 1 tablet by mouth bid METRONIDAZOLE 89085473982 No Longer Active Vishal Hui MD Active FLUTICASONE PROPIONATE 50 MCG/ACT SUSP 2 sprays each nostril daily before bed. FLUTICASONE PROPIONATE 02243960712 Active Fabiola Johnson APRN Active VALIUM 5 MG TAB Take 1-2 tablets daily DIAZEPAM 26142314222 No Longer Active Fabiola Johnson APRN Active METOPROLOL TARTRATE 25 MG ORAL TABS 1/2 tablet twice daily for heart rate and blood pressure METOPROLOL TARTRATE 94680779114 No Longer Active Fabiola Johnson APRN Active MIRALAX ORAL POWD 17GMS DAILY IN WATER POLYETHYLENE GLYCOL 3350 15133101260 Active TAMARA Casey Active MIRALAX PACK 1 po qd PRN Constipation POLYETHYLENE GLYCOL 3350 36181862735 No Longer Active Ahmet Carbajal MD Active MINIPRESS 2 MG CAPS 4 cap po at night PRAZOSIN HCL 00832464433 No Longer Active Ahmet Carbajal MD Active PIROXICAM 20 MG CAPS 1 cap po qd PRN Pain PIROXICAM 82753627196 No Longer Active Ahmet Carbajal MD Active TRAMADOL HCL 50 MG TABS 1-2 po TID PRN Pain TRAMADOL HCL 84773467818 No Longer Active Ahmet Carbajal MD Active METOPROLOL TARTRATE 50 MG TAB 1 po bid METOPROLOL TARTRATE 08895059812 No Longer Active Ahmet Carbajal MD Active ABILIFY 15 MG ORAL TABS 1 tab daily ARIPIPRAZOLE 83098056489 No Longer Active Ahmet Carbajal MD Active PROZAC 20 MG ORAL CAPS 1 tab daily FLUOXETINE HCL 60020580062 No Longer Active Ahmet Carbajal MD Active AMBIEN 5 MG ORAL TABS 1 tab at bedtime ZOLPIDEM TARTRATE 87334148404 No Longer Active Ahmet Carbajal MD Active PREDNISONE 20 MG TAB 2 tabs daily for 4 days, 1 tab daily for 4 days, 1/2 tab daily for 4 days PREDNISONE 16013241841 No Longer Active Ahmet Carbajal MD Active KEFLEX 500 MG CAP 1 po TID x 10 days CEPHALEXIN 93193422908 No Longer Active Vishal Hui MD Active SAPHRIS 5 MG SUBL 1 po bid ASENAPINE MALEATE 13455436312 No Longer Active Jillina Fralebron STICKER MACHINE OPERATOR Active LATUDA 80 MG TABS Take one by mouth daily LURASIDONE HCL 39643849247 No Longer Active Jillina Frazell STICKER MACHINE OPERATOR Active AMLODIPINE BESYLATE 5 MG TABS 1 tablet by mouth daily AMLODIPINE BESYLATE 18314835321 No Longer Active Jillina Frazell STICKER MACHINE OPERATOR Active AMITRIPTYLINE HCL 100 MG TAB one at hs AMITRIPTYLINE HCL 15445438778 No Longer Active Vishal Hui MD Active TRAZODONE HCL 100 MG TAB take 1 at bedtime TRAZODONE HCL 89262650604 No Longer Active Vishal Hui MD Active VYVANSE 40 MG CAPS 1 daily, LISDEXAMFETAMINE DIMESYLATE 15524191243 No Longer Active Vishal Hui MD Active IBUPROFEN 600 MG TAB 1 po TID PRN IBUPROFEN 60371659589 No Longer Active Vishal Hui MD Active PROZAC 20 MG CAP Take one by mouth daily FLUOXETINE HCL 52607342494 No Longer Active Vishal Hui MD Active ZOFRAN 4 MG TABS 1 po q6hr PRN Nausea ONDANSETRON HCL Active Vishal Hui MD Active BACTRIM DS 800-160 MG TABS 1 pill by mouth twice daily SULFAMETHOXAZOLE-TRIMETHOPRIM 26717508387 No Longer Active Sahara Rodriguez MD PhD Active DIFLUCAN 150 MG TAB 1 tablet by mouth daily FLUCONAZOLE 52837144200 No Longer Active Vishal Hui MD Active TIZANIDINE HCL 4 MG TABS 1 po q6hr PRN Muscle Spasm/Back Pain TIZANIDINE HCL 66310534003 Active Vishal Hui MD Active CLINDAMYCIN HCL 150 MG CAPS 1 four times a day CLINDAMYCIN HCL 09447803682 No Longer Active Neeraj Collins MD Active KEFLEX 500 MG ORAL CAPS 1 cap QID by mouth CEPHALEXIN 70057492021 No Longer Active Neeraj Collins MD Active DIFLUCAN 150 MG TABS 1 pill every other day x 2 doses FLUCONAZOLE 77644833973 No Longer Active Sahara Rodriguez MD PhD Active MELATONIN 3 MG CAPS 2 po q hs MELATONIN 16322953304 No Longer Active Sahara Rodriguez MD PhD Active MULTIVITAMINS CAPS Take one by mouth daily MULTIPLE VITAMIN 92997368722 No Longer Active Sahara Rodriguez MD PhD Active BACTRIM DS 800-160 MG TAB 1 tab by mouth twice daily TRIMETHOPRIM-SULFAMETHOXAZOLE 68306941952 No Longer Active Sahara Rodriguez MD PhD Active [facility] PROBIOTIC ORAL CHEW 2 daily po PROBIOTIC PRODUCT 93645466318 No Longer Active Sahara Rodriguez MD PhD Active BACTRIM DS 800-160 MG TABS 1 po BID x 7 days SULFAMETHOXAZOLE-TRIMETHOPRIM 32774887274 No Longer Active Vishal Hui MD Active CHANTIX STARTING MONTH EARNEST 0.5 MG X 11 & 1 MG X 42 TABS 0.5mg daily for 3 days , then 0.5mg BID for 4 days, then 1mg BID VARENICLINE TARTRATE 38465687985 No Longer Active TAMARA Gray Active VERAPAMIL HCL CR 120 MG TAB CR 1 po bid VERAPAMIL HCL 21458162565 No Longer Active Vishal Hui MD Active METOPROLOL SUCCINATE 50 MG TB24 1 tablet by mouth daily METOPROLOL SUCCINATE 20555230477 No Longer Active Vishal Hui MD Active SAPHRIS 10 MG SUBL 1 tab po bid ASENAPINE MALEATE 40358305399 No Longer Active Vishal Hui MD Active LISINOPRIL 20 MG TABS 1 tab po qd LISINOPRIL 97369556184 No Longer Active Vishal Hui MD Active LATUDA 20 MG TABS Take one by mouth daily LURASIDONE HCL 30098979990 No Longer Active Vishal Hui MD Active TRAZODONE HCL 50 MG TABS 1/2 tab po qd prn for anxiety TRAZODONE HCL 73440471860 No Longer Active Vishal Hui MD Active OMEPRAZOLE 20 MG TBEC 1 po q a.m. 30min prior to first food intake OMEPRAZOLE 17063366597 Active Vishal Hui MD Active RANITIDINE HCL 150 MG CAPS 1 twice a day RANITIDINE HCL 85517840243 Active Luigi Martínez APRN Active LINZESS 290 MCG CAPS Take one by mouth daily LINACLOTIDE 63221236799 No Longer Active Vishal Hui MD Active SAPHRIS 5 MG SUBL 1 tab po qd ASENAPINE MALEATE 85520149305 No Longer Active Vishal Hui MD Active ZALEPLON 10 MG CAPS 1 cap po every other night ZALEPLON 86673130105 No Longer Active Vishal Hui MD Active LYRICA 50 MG CAPS 1 tab po TID PREGABALIN 44974303263 No Longer Active Vishal Hui MD Active LORATADINE 10 MG TABS 1 tab po qd LORATADINE 67258145672 No Longer Active Vishal Hui MD Active VERAPAMIL HCL ER 180 MG CR-TABS 1 tab po bid VERAPAMIL HCL 19331130954 No Longer Active Vishal Hui MD Active MIRALAX POWD 1 capfull once daily POLYETHYLENE GLYCOL 3350 95225518864 No Longer Active Vishal Hui MD Active PREDNISONE 20 MG TABS 1 tab po qd PREDNISONE 77366420360 No Longer Active Renzo Thornton DO Active LEVOFLOXACIN 500 MG TABS 1 tab po qd LEVOFLOXACIN 49892525327 No Longer Active Renzo Thornton DO Active BUSPIRONE HCL 15 MG TABS 1 tab po TID BUSPIRONE HCL 20549420132 No Longer Active Renzo Thornton DO Active BENZTROPINE MESYLATE 1 MG TABS 1 tab po qd BENZTROPINE MESYLATE 12784454971 No Longer Active Renzo Thornton DO Active ATENOLOL 25 MG TABS 1 tab po qd ATENOLOL 93922435619 No Longer Active Renzo Thornton DO Active ESCITALOPRAM OXALATE 20 MG TABS 1 tab po qd ESCITALOPRAM OXALATE 13431681126 No Longer Active Renzo Thornton DO Active ADVAIR DISKUS 250-50 MCG/DOSE AEPB 1 puff BID FLUTICASONE-SALMETEROL 04578467528 No Longer Active Renzo Thornton DO Active PREDNISONE 20 MG TAB 2 tabs daily for 3 days, 1 tab daily for 3 days, 1/2 tab daily for 2 days PREDNISONE 17387247499 No Longer Active Vishal Hui MD Active CEFDINIR 300 MG CAPS by mouth twice a day CEFDINIR 65359740758 No Longer Active Vishal Hui MD Active LANSOPRAZOLE 30 MG CPDR 1 cap po qd LANSOPRAZOLE 46118358122 No Longer Active Vishal Hui MD Active BACLOFEN 20 MG TABS 1 tab po tid BACLOFEN 47874651236 No Longer Active Vishal Hui MD Active ADVAIR DISKUS 250-50 MCG/DOSE AEPB 1 puff BID ADVAIR DISKUS 250-50 MCG/DOSE AEPB FLUTICASONE-SALMETEROL Inactive ESCITALOPRAM OXALATE 20 MG TABS 1 tab po qd ESCITALOPRAM OXALATE 20 MG TABS 754096 ESCITALOPRAM OXALATE Inactive ATENOLOL 25 MG TABS 1 tab po qd ATENOLOL 25 MG TABS 961277 ATENOLOL Inactive BENZTROPINE MESYLATE 1 MG TABS 1 tab po qd BENZTROPINE MESYLATE 1 MG TABS 198282 BENZTROPINE MESYLATE Inactive BUSPIRONE HCL 15 MG TABS 1 tab po TID BUSPIRONE HCL 15 MG TABS 308668 BUSPIRONE HCL Inactive LEVOFLOXACIN 500 MG TABS 1 tab po qd LEVOFLOXACIN 500 MG TABS 753110 LEVOFLOXACIN Inactive PREDNISONE 20 MG TABS 1 tab po qd PREDNISONE 20 MG TABS 334058 PREDNISONE Inactive MIRALAX POWD 1 capfull once daily MIRALAX POWD 037233 POLYETHYLENE GLYCOL 3350 Inactive VERAPAMIL HCL ER 180 MG CR-TABS 1 tab po bid VERAPAMIL HCL ER 180 MG CR-TABS VERAPAMIL HCL Inactive LORATADINE 10 MG TABS 1 tab po qd LORATADINE 10 MG TABS 248122 LORATADINE Inactive LYRICA 50 MG CAPS 1 tab po TID LYRICA 50 MG CAPS PREGABALIN Inactive ZALEPLON 10 MG CAPS 1 cap po every other night ZALEPLON 10 MG CAPS 656138 ZALEPLON Inactive SAPHRIS 5 MG SUBL 1 tab po qd SAPHRIS 5 MG SUBL ASENAPINE MALEATE Inactive TRAZODONE HCL 50 MG TABS 1/2 tab po qd prn for anxiety TRAZODONE HCL 50 MG TABS 685612 TRAZODONE HCL Inactive LATUDA 20 MG TABS Take one by mouth daily LATUDA 20 MG TABS LURASIDONE HCL Inactive LISINOPRIL 20 MG TABS 1 tab po qd LISINOPRIL 20 MG TABS 130031 LISINOPRIL Inactive SAPHRIS 10 MG SUBL 1 [...] twice daily BACTRIM DS 800-160 MG TAB 613042 TRIMETHOPRIM-SULFAMETHOXAZOLE Inactive MULTIVITAMINS CAPS Take one by mouth daily MULTIVITAMINS CAPS MULTIPLE VITAMIN Inactive MELATONIN 3 MG CAPS 2 po q hs MELATONIN 3 MG CAPS 964393 MELATONIN Inactive KEFLEX 500 MG ORAL CAPS 1 cap QID by mouth KEFLEX 500 MG ORAL CAPS 758377 CEPHALEXIN Inactive CLINDAMYCIN HCL 150 MG CAPS 1 four times a day CLINDAMYCIN HCL 150 MG CAPS 19740326 CLINDAMYCIN HCL Inactive DIFLUCAN 150 MG TAB 1 tablet by mouth daily DIFLUCAN 150 MG TAB 013161 FLUCONAZOLE Inactive PROZAC 20 MG CAP Take one by mouth daily PROZAC 20 MG CAP 920816 FLUOXETINE HCL Inactive IBUPROFEN 600 MG TAB 1 po TID PRN IBUPROFEN 600 MG TAB 223183 IBUPROFEN Inactive VYVANSE 40 MG CAPS 1 daily, VYVANSE 40 MG CAPS LISDEXAMFETAMINE DIMESYLATE Inactive TRAZODONE HCL 100 MG TAB take 1 at bedtime TRAZODONE HCL 100 MG TAB 919053 TRAZODONE HCL Inactive AMITRIPTYLINE HCL 100 MG TAB one at hs AMITRIPTYLINE HCL 100 MG TAB 014602 AMITRIPTYLINE HCL Inactive AMLODIPINE BESYLATE 5 MG TABS 1 tablet by mouth daily AMLODIPINE BESYLATE 5 MG TABS 748496 AMLODIPINE BESYLATE Inactive LATUDA 80 MG TABS Take one by mouth daily LATUDA 80 MG TABS LURASIDONE HCL Inactive SAPHRIS 5 MG SUBL 1 po bid SAPHRIS 5 MG SUBL ASENAPINE MALEATE Inactive PREDNISONE 20 MG TAB 2 tabs daily for 4 days, 1 tab daily for 4 days, 1/2 tab daily for 4 days PREDNISONE 20 MG TAB 160154 PREDNISONE Inactive AMBIEN 5 MG ORAL TABS 1 tab at bedtime AMBIEN 5 MG ORAL TABS 531851 ZOLPIDEM TARTRATE Inactive PROZAC 20 MG ORAL CAPS 1 tab daily PROZAC 20 MG ORAL CAPS 967304 FLUOXETINE HCL Inactive ABILIFY 15 MG ORAL TABS 1 tab daily ABILIFY 15 MG ORAL TABS 388065 ARIPIPRAZOLE Inactive METOPROLOL TARTRATE 50 MG TAB 1 po bid METOPROLOL TARTRATE 50 MG TAB 654113 METOPROLOL TARTRATE Inactive TRAMADOL HCL 50 MG TABS 1-2 po TID PRN Pain TRAMADOL HCL 50 MG TABS 103896 TRAMADOL HCL Inactive PIROXICAM 20 MG CAPS 1 cap po qd PRN Pain PIROXICAM 20 MG CAPS 542304 PIROXICAM Inactive MINIPRESS 2 MG CAPS 4 cap po at night MINIPRESS 2 MG CAPS 014307 PRAZOSIN HCL Inactive MIRALAX PACK 1 po qd PRN Constipation MIRALAX PACK 251431 POLYETHYLENE GLYCOL 3350 Inactive METOPROLOL TARTRATE 25 MG ORAL TABS 1/2 tablet twice daily for heart rate and blood pressure METOPROLOL TARTRATE 25 MG ORAL TABS 474036 METOPROLOL TARTRATE Inactive VALIUM 5 MG TAB Take 1-2 tablets daily VALIUM 5 MG TAB 851064 DIAZEPAM Inactive FLAGYL 500 MG TAB 1 tablet by mouth bid FLAGYL 500 MG TAB 147375 METRONIDAZOLE Inactive DICLOFENAC POTASSIUM TABS Take 1 tablet twice a day (pt. is not sure of the dose.) DICLOFENAC POTASSIUM TABS DICLOFENAC POTASSIUM TABS Inactive ZITHROMAX Z-EARNEST 250 MG TABS 2 today and then 1 daily for 4 days ZITHROMAX Z-EARNEST 250 MG TABS 6121721 AZITHROMYCIN Inactive PREDNISONE 20 MG TABS 2 daily for 5 days then 1 daily for 5 days PREDNISONE 20 MG TABS 418519 PREDNISONE Inactive PROAIR HFA 108 (90 BASE) MCG/ACT AERS 2 puffs four times a day as needed 2015 PROAIR HFA 108 (90 BASE) MCG/ACT AERS ALBUTEROL SULFATE Inactive HYDROCODONE-ACETAMINOPHEN 5-325 MG TABS 1 to 2 four times a day as needed for pain use until can be seen by specialist HYDROCODONE- ACETAMINOPHEN 5-325 MG TABS 874868 HYDROCODONE-ACETAMINOPHEN Inactive TESSALON PERLES 100 MG CAP 1 to 2 tablets by mouth 3 times daily as needed for cough TESSALON PERLES 100 MG CAP 476139 BENZONATATE Inactive CHANTIX STARTING MONTH EARNEST 0.5 [...] Pain 2015 DICLOFENAC SODIUM 50 MG TBEC 942448 DICLOFENAC SODIUM Inactive TOPAMAX 50 MG ORAL TABS 1 tab twice daily TOPAMAX 50 MG ORAL TABS 492908 TOPIRAMATE Inactive VIIBRYD 10 MG ORAL TABS Take 1 tablet once a day VIIBRYD 10 MG ORAL TABS VILAZODONE HCL Inactive LEVOFLOXACIN 500 MG ORAL TABS po daily LEVOFLOXACIN 500 MG ORAL TABS 970467 LEVOFLOXACIN Inactive METHYLPREDNISOLONE 4 MG ORAL TABS po daily METHYLPREDNISOLONE 4 MG ORAL TABS 074135 METHYLPREDNISOLONE Inactive OXYCODONE HCL ER 10 MG ORAL T12A 1/2 tab by mouth every 4 hours prn OXYCODONE HCL ER 10 MG ORAL T12A OXYCODONE HCL Inactive FLAGYL 500 MG TAB 1 tablet by mouth bid FLAGYL 500 MG TAB 196635 METRONIDAZOLE Inactive MONISTAT 7 COMBO PACK WOODROW 100 & 2 MG-% (9GM) VAG KIT 1 applicatorful per vagina q pm x 7 MONISTAT 7 COMBO PACK WOODROW 100 & 2 MG-% (9GM) VAG KIT MICONAZOLE NITRATE Inactive BACTRIM DS 800-160 MG TABS 1 twice a day BACTRIM DS 800-160 MG TABS 126673 SULFAMETHOXAZOLE-TRIMETHOPRIM Inactive TRAMADOL HCL 50 MG TABS 1/2-1 tab TID PRN TRAMADOL HCL 50 MG TABS 304993 TRAMADOL HCL Inactive ABILIFY MAINTENA 400 MG IM SUSR 400mg injection every 26 days ABILIFY MAINTENA 400 MG IM SUSR ARIPIPRAZOLE Inactive KLONOPIN 1 MG ORAL TABS 1 tab po TID KLONOPIN 1 MG ORAL TABS 716258 CLONAZEPAM Inactive ADVAIR DISKUS 250-50 MCG/DOSE INH AEPB 1 puff twice a day for asthma ADVAIR DISKUS 250-50 MCG/DOSE INH AEPB FLUTICASONE- SALMETEROL Inactive BENADRYL 25 MG CAP 4 po at bedtime for insomnia BENADRYL 25 MG CAP DIPHENHYDRAMINE HCL Inactive PREDNISONE 20 MG TABS 2 daily for 5 days then 1 daily for 5 days PREDNISONE 20 MG TABS 436820 PREDNISONE Inactive HYDROCODONE-ACETAMINOPHEN 5-325 MG ORAL TABS 1 tab two times a day HYDROCODONE-ACETAMINOPHEN 5-325 MG ORAL TABS 493276 HYDROCODONE-ACETAMINOPHEN Inactive CEFDINIR 300 MG CAPS by mouth twice a day CEFDINIR 300 MG CAPS 463321 CEFDINIR Inactive PREDNISONE 20 MG TAB 2 tabs daily for 3 days, 1 tab daily for 3 days, 1/2 tab daily for 2 days PREDNISONE 20 MG TAB 660799 PREDNISONE Inactive BACTRIM DS 800-160 MG TABS 1 po BID x 7 days BACTRIM DS 800-160 MG TABS 19820521 SULFAMETHOXAZOLE-TRIMETHOPRIM Inactive DIFLUCAN 150 MG TABS 1 pill every other day x 2 doses DIFLUCAN 150 MG TABS 184877 FLUCONAZOLE Inactive BACTRIM DS 800-160 MG TABS 1 pill by mouth twice daily BACTRIM DS 800-160 MG TABS 512478 SULFAMETHOXAZOLE-TRIMETHOPRIM Inactive KEFLEX 500 MG CAP 1 po TID x 10 days KEFLEX 500 MG CAP 439597 CEPHALEXIN Inactive Advance Directives Directive Description Start [...] pressure, diastolic - 8462-4 95 mm[Hg] BP mncally blood pressure, systolic - 8480-6 145 mm[Hg] [...] 369 10^3/MM^3 10*3/mm3 142-424 Lab Report: Chlamydia/GC [id number] - Lab chlamydia DNA probe NOT DETECTED NOT DETECTED Lab Report: Chlamydia/GC APTIMA/[id number] - Microbiology Neisseria gonorrhoeae DNA probe NOT DETECTED NOT DETECTED Lab Report: Comp. Metabolic Panel - Chemistry sodium, serum 142 mmol/L 306-657 0507/06/08 carbon dioxide, venous blood 27.6 mmol/L 21.0-32.0 potassium, serum 4.0 mmol/L 3.5-5.2 chloride, serum 105 mmol/L 98-107 blood glucose 95 mg/dL 65-110 urea nitrogen, blood 8 mg/dL 7-18 creatinine, serum 0.75 mg/dL 0.55-1.30 alanine aminotransferase (SGPT), serum 49 U/L -78 aspartate aminotransferase (SGOT), serum 28 U/L 15-37 calcium, serum 9.4 mg/dL 8.5-10.1 bilirubin, serum, total 0.30 mg/dL 0.00-1.00 sodium, serum 140 mmol/L 914-064 8143/08/08 carbon dioxide, venous blood 33.7 mmol/L 21.0-32.0 [...] mg/dL Encounters Code Encounter Date Provider Facility CPT-58211 Level 3 Est. Patient 11:47:37 [employer]A [employer]TEGR[employer] ARCHITECT Ahmet Carbajal MD [facility] CPT-60658 Level 3 Est. Patient 10:40:11 [employer]A INTEGRATION ARCHITECT Ahmet Carbajal MD [facility] CPT-55417 Level 3 Est. Patient 15:07:06 SOA INTEGRATION ARCHITECT Neeraj Collins MD [facility] CPT-94649 Level 4 Est. Patient 14:45:00 SOA INTEGRATION ARCHITECT Ahmet Carbajal MD [facility] CPT-75703 Level 3 Est. Patient 13:59:59 CDT Luigi Martínez [facility] CPT-09813 Level 3 Est. Patient 18:18:53 CDT Neeraj Collins MD [facility] CPT-30857 Level 3 Est. Patient 15:50:44 CDT Vishal Hui MD [facility] CPT-62484 Level 3 Est. Patient 11:36:17 CDT Ahmet Carbajal MD [facility] CPT-94290 Level 3 Est. Patient 13:29:16 CDT Vishal Hui MD [facility] CPT-88909 Level 3 Est. Patient 14:27:52 CDT Neeraj Collins MD [facility] CPT-09802 Level 3 Est. Patient 08:56:03 CDT Luigi Martínez [facility] CPT-15433 Level 4 Est. Patient 12:11:48 CDT Fabiola Johnson [facility] CPT-01837 Level 3 New Patient 16:53:37 CDT Albert Caldera MD [facility] CPT-80617 Level 3 Est. Patient 11:25:49 CDT Renzo Thornton DO [facility] CPT-23737 Level 3 Est. Patient 15:22:01 CDT Ahmet Carbajal MD [facility] CPT-15237 Level 4 Est. Patient 09:00:51 [employer]TEGRATION ARCHITECT Vishal Hui MD [facility] CPT-83954 Level 3 Est. Patient 11:37:33 SOA INTEGRATION ARCHITECT Vishal Hui MD [facility] CPT-08124 Level 3 Est. Patient 08:41:09 SOA INTEGRATION ARCHITECT Vishal Hui MD [facility] CPT-28886 Level 4 Est. Patient 10:19:35 SOA INTEGRATION ARCHITECT Vishal Hui MD [facility] CPT-06360 Level 3 Est. Patient 13:35:45 CDT Vishal Hui MD [facility] CPT-44516 Level 4 Est. Patient 10:08:37 CDT Vishal Hui MD [facility] CPT-70842 Level 3 Est. Patient 11:22:10 CDT Vishal Hui MD [facility] CPT-40400 Level 3 Est. Patient 11:03:32 CDT Sahara Rodriguez MD PhD [facility] CPT-50536 Level 3 Est. Patient 09:41:35 CDT Vishal Hui MD [facility] CPT-77103 Level 3 Est. Patient 12:00:41 CDT Nereaj Collins MD [facility] CPT-49505 Level 3 Est. Patient 09:16:24 CDT Vishal Hui MD [facility] CPT-24583 Level 4 Est. Patient 13:59:09 CDT Neeraj Collins MD [facility] CPT-77020 Level 3 Est. Patient 15:19:43 CDT Renzo Thornton DO [facility] CPT-28616 Level 3 Est. Patient 18:10:26 CDT Sahara Rodriguez MD PhD [facility]-13645 Level 3 Est. Patient 14:49:50 CDT Vishal Hui MD [facility] CPT-00364 Level 4 Est. Patient 18:41:46 CDT Neeraj Collins MD [facility] CPT-29132 Level 4 Est. Patient 09:18:38 SOA INTEGRATION ARCHITECT Vishal Hui MD [facility] CPT-29816 Level 3 Est. Patient 14:43:55 SOA INTEGRATION ARCHITECT Vishal Hui MD [facility] CPT-17790 Level 3 Est. Patient 15:26:33 SOA INTEGRATION ARCHITECT Sahara Rodriguez MD [facility] CPT-16496 Level 3 Est. Patient 10:32:14 SOA INTEGRATION ARCHITECT Vishal Hui MD [facility] CPT-24303 Level 3 Est. Patient 15:12:52 SOA INTEGRATION ARCHITECT Vishal Hui MD [facility] CPT-51759 Level 4 Est. Patient 09:19:27 CDT Vishal Hui MD [facility] CPT-03544 Level 3 Est. Patient 15:53:00 CDT Renzo Barajas [facility] CPT-94473 Level 3 Est. Patient 15:50:30 CDT Renzo Thornton [facility] CPT-74736 Level 3 Est. Patient 16:55:24 CDT Vishal Hui MD [facility] Procedures Code Procedure Name Date Entry Date Standard Description CPT-G0439 [facility] Annual Wellness Exam 09:30:58 SOA INTEGRATION ARCHITECT CPT-84607 TSH - LAB USE ONLY 08:50:26 SOA INTEGRATION ARCHITECT CPT-29820 CBC - LAB USE ONLY 08:50:26 [employer]A INTEGRATION ARCHITECT CPT-10371 Venipuncture Draw Fee 08:50:26 SOA INTEGRATION ARCHITECT CPT-40985 Abx/Therapy Injection 17:34:30 SOA INTEGRATION ARCHITECT CPT-06681 Nexplanon Removal with Reinsertion 14:09:32 CDT CPT-J7307 Nexplanon (Implant) 14:09:32 CDT CPT-OV Office Visit 14:09:32 CDT CPT-32958 UA w micro - LAB USE ONLY 16:21:13 CDT CPT-44533 Wet Mount - LAB USE ONLY 16:21:13 CDT CPT-74042 First Vx - Ix admin for Medicare patients 14:37:47 CDT CPT-56133 Fluzone Preservative Free Intramuscular Suspension 14:37 :47 CDT CPT-99679 Abx/Therapy Injection 13:54:22 CDT CPT-59961 Abx/Therapy Injection 08:47:09 CDT CPT-18868 Abx/Therapy Injection 13:29:56 CDT CPT-19124 Abx/Therapy Injection 08:36:16 CDT CPT-17529 Wet Mount - LAB USE ONLY 17:44:58 CDT CPT-73096 UA w micro - LAB USE ONLY 17:44:58 CDT CPT-72528 CMP - LAB USE ONLY 17:44:58 CDT CPT-50235 Venipuncture Draw Fee 17:44:58 CDT CPT-53599 Cervical Min 4V - XRAY USE ONLY 09:01:40 CDT CPT-76242 Chest 2V Frontal and Lat - XRAY USE ONLY 11:06:31 CDT CPT-91371 EKG Trac and Interp - XRAY USE ONLY 11:31:43 CDT 08/26 CPT-J3420 Vitamin B12 1000mcg (Cyanocobalamin) 08:10:26 SOA INTEGRATION ARCHITECT 04/12 CPT-42951 Abx/Therapy Injection 08:10:26 SOA INTEGRATION ARCHITECT CPT-G0438 Initial Annual Wellness Exam 19:01:01 SOA INTEGRATION ARCHITECT CPT-J3420 Vitamin B12 1000mcg (Cyanocobalamin) 16:57:46 CDT 08/14 CPT-18160 Recombivax HB Injection Suspension 5 MCG/0.5ML 08:37:50 SOA INTEGRATION ARCHITECT CPT-88854 Immunization Single Admin 08:37:50 SOA INTEGRATION ARCHITECT CPT-J3420 Vitamin B12 1000mcg (Cyanocobalamin) 08:32:16 SOA INTEGRATION ARCHITECT 03/11 CPT-20766 Abx/Therapy Injection 08:32:16 SOA INTEGRATION ARCHITECT CPT-39765 Chest 2V Frontal and Lat 11:46:38 SOA INTEGRATION ARCHITECT CPT-19401 Venipuncture Draw Fee 09:12:45 SOA INTEGRATION ARCHITECT CPT-J3420 Vitamin B12 1000mcg (Cyanocobalamin) 08:50:15 SOA INTEGRATION ARCHITECT 02/08 CPT-00728 Abx/Therapy Injection 08:50:15 SOA INTEGRATION ARCHITECT CPT-Cryo Cryotherapy 10:19:35 SOA INTEGRATION ARCHITECT CPT-000 Give Appropriate Flu Vaccine 09:22:16 CDT CPT-J3420 Vitamin B12 1000mcg (Cyanocobalamin) 19:08:57 CDT 01/11 CPT-55722 Abx/Therapy Injection 19:08:57 CDT CPT-J3420 Vitamin B12 1000mcg (Cyanocobalamin) 08:19:08 CDT 12/11 CPT-69960 Abx/Therapy Injection 08:19:08 CDT CPT-J3420 Vitamin B12 1000mcg (Cyanocobalamin) 14:48:00 CDT 11/09 CPT-16654 Abx/Therapy Injection 14:47:59 CDT CPT-J3420 Vitamin B12 1000mcg (Cyanocobalamin) 08:34:04 CDT 10/09 CPT-72536 Abx/Therapy Injection 08:34:04 CDT CPT-J3420 Vitamin B12 1000mcg (Cyanocobalamin) 09:18:52 CDT 09/11 CPT-39849 Abx/Therapy Injection 09:18:52 CDT CPT-J3420 Vitamin B12 1000mcg (Cyanocobalamin) 08:35:44 CDT 09/04 CPT-60338 Abx/Therapy Injection 08:35:44 CDT CPT-01444 Immunization Single Admin 11:07:16 CDT CPT-29458 Hepatitis B adult IM 11:07:16 CDT CPT-J3420 Vitamin B12 1000mcg (Cyanocobalamin) 11:00:49 CDT 08/28 CPT-J1040 Depo Medrol 80 mg (Methyl Prednisolone Acetate) 11:00: 49 CDT CPT-42586 Abx/Therapy Injection 11:00:49 CDT CPT-J1040 Depo Medrol 80 mg (Methyl Prednisolone Acetate) 09:16: 23 CDT CPT-J3420 Vitamin B12 1000mcg (Cyanocobalamin) 08:27:05 CDT 08/20 CPT-20034 Abx/Therapy Injection 08:27:05 CDT CPT-34063 Recombivax HB Injection Suspension 5 MCG/0.5ML 10:00:41 CDT CPT-59969 Administration single or combination vaccine inc oral 10 :00:41 CDT CPT-57887 Sono transvag pelvis non OB uterus ovaries cervix 16:36: 57 CDT CPT-09325 LS spine comp w obliq 09:50:55 SOA INTEGRATION ARCHITECT CPT-17646 Abd compl w upright 09:50:55 SOA INTEGRATION ARCHITECT CPT-J1100 Decadron 4mg (Dexamethasone) 15:51:24 SOA INTEGRATION ARCHITECT CPT-J1030 Depo Medrol 40 mg (Methyl Prednisolone Acetate) 15:51: 24 SOA INTEGRATION ARCHITECT CPT-02177 Abx/Therapy Injection 15:51:24 SOA INTEGRATION ARCHITECT CPT-J1100 Decadron 4mg (Dexamethasone) 15:26:33 SOA INTEGRATION ARCHITECT CPT-J1030 Depo Medrol 40 mg (Methyl Prednisolone Acetate) 15:26: 33 SOA INTEGRATION ARCHITECT CPT-06577 Sono retroperitoneal complete kidneys and bladder 17:15: 30 CDT CPT-91872 Abd compl w upright 16:09:25 CDT CPT-J1100 Decadron 8mg (Dexamethasone) 17:07:57 CDT CPT-18669 Abx/Therapy Injection 17:07:57 CDT CPT-J1100 Decadron 8mg (Dexamethasone) 16:55:24 CDT CPT-41902 Chest 2V Frontal and Lat 16:32:44 CDT
--- OUTSIDE RECORDS SUMMARY | 2016-11-04 15:44 | XMS REPORT | Clinical Summary ---
Author Author Admin, Dereck Organization [employer] Address Unknown Phone Unavailable Allergies, Adverse [...] in limb Asthma, acute 493.92 Resolved Vishal Hiu MD Asthma, unspecified with (acute) exacerbation Upper [...] Active Ahmet Carbajal MD Generalized anxiety disorder [employer] well woman exam V72.31 Active Suzan Boo [...] MD Health screening ICD-V70.0 Inactive Suzan Boo CEMENT LOADER Sinus tachycardia ICD-427.89 Inactive Suzan Boo CEMENT LOADER Smoker/tobacco use disorder-smoking cessation discussed ICD-305.1 Inactive Vishal Hui MD Abdominal pain ICD-789.00 Inactive Vishal Hui MD Cellulitis ICD-682.9 Inactive Vishal Hui MD Pelvic pain ICD-625.9 Inactive Vishal Hiu MD Abscess, skin ICD-682.9 Inactive Vishal Hui [...] SOLN 30mL oral daily for IBS-C LACTULOSE 58693594344 Active Suzan Boo APRN Active TESSALON PERLES 100 MG CAPS 1 three times a day as needed for cough BENZONATATE 53037674883 No Longer Active Suzan Boo APRN Active BACTRIM DS 800-160 MG TABS 1 twice a day SULFAMETHOXAZOLE-TRIMETHOPRIM 72695181207 No Longer Active Suzan Boo APRN Active DIFLUCAN 150 MG TABS 1 by mouth for yeast FLUCONAZOLE 39717530526 No Longer Active Suzan Boo APRN Active EQ NICOTINE 21 MG/24HR TRANS PT24 Apply daily to stop smoking NICOTINE 33822754029 No Longer Active Suzan Boo APRN Active PREDNISONE 10 MG TABS 2 daily for 5 days then 1 daily for 5 days PREDNISONE 75058982149 No Longer Active Suzan Boo APRN Active LEVAQUIN 500 MG TABS 1 daily for infection LEVOFLOXACIN 22104665737 No Longer Active Suzan Boo APRN Active TROPICAMIDE 0.5 % OPHTH SOLN 1 drop PRN eye spasms TROPICAMIDE 41446564342 No Longer Active Suzan Boo APRN Active PREDNISONE 20 MG TAB 1 tablet daily x 4 days PREDNISONE 80871066805 No Longer Active Suzan Boo APRN Active ACETAMINOPHEN-CODEINE 120-12 MG/5ML SOLN 5 ml by mouth every 4-6 hours if needed for cough ACETAMINOPHEN-CODEINE 44622022200 No Longer Active Suzan Boo APRN Active KEFLEX 500 MG CAP 1 po qid CEPHALEXIN 78897510553 No Longer Active Suzan Boo APRN Active FLOVENT HFA 110 MCG/ACT AERO 2 puffs inhaled b.i.d. FLUTICASONE PROPIONATE HFA 30974599687 Active Renzo Thornton DO Active RISPERDAL 4 MG ORAL TABS 1 tab at bedtime RISPERIDONE 34116835934 Active Samantha Rothman RMA Active ZOFRAN 4 MG TABS 1 po q6hr PRN Nausea ONDANSETRON HCL No Longer Active Suzan Boo APRN Active FLUTICASONE PROPIONATE 50 MCG/ACT SUSP 2 sprays each nostril daily before bed. FLUTICASONE PROPIONATE 43931343888 No Longer Active Suzan Boo APRN Active ASPIRIN 325 MG ORAL TABS 1 tab q.d ASPIRIN 52786064525 No Longer Active Suzan Boo APRN Active HALOPERIDOL 10 MG ORAL TABS 1 tab q.d HALOPERIDOL 77682352590 No Longer Active Suzan Boo APRN Active GUAIFENESIN-CODEINE 100-10 MG/5ML SYRP 5ml every 4 to 6 hours as needed for cough GUAIFENESIN-CODEINE 11753540130 No Longer Active Suzan Boo APRN Active ZITHROMAX Z-EARNEST 250 MG TABS 2 today and then 1 daily for 4 days AZITHROMYCIN 59377477963 No Longer Active Suzan Boo APRN Active CLONAZEPAM 1 MG ORAL TABS 1 twice a day and an additional 1 tablet every other day as needed for pseudoseizures or anxiety CLONAZEPAM 59120324738 Active Ahmet Carbajal MD Active HYDROCODONE-ACETAMINOPHEN 5-325 MG ORAL TABS 1 tab two times a day HYDROCODONE-ACETAMINOPHEN 38208705920 No Longer Active Ahmet Carbajal MD Active LAMICTAL 100 MG ORAL TABS 1 tab 2 times qd. LAMOTRIGINE 85735855988 Active Ahmet Carbajal MD Active PREDNISONE 20 MG TABS 2 daily for 5 days then 1 daily for 5 days PREDNISONE 08624815916 No Longer Active Ahmet Carbajal MD Active FLUTICASONE PROPIONATE 50 MCG/ACT SUSP 1 to 2 sprays each nostril daily for allergies FLUTICASONE PROPIONATE 10447662583 Active Tila Valenzuela Active BENADRYL 25 MG CAP 4 po at bedtime for insomnia DIPHENHYDRAMINE HCL 22096406780 No Longer Active Ahmet Carbajal MD Active ADVAIR DISKUS 250-50 MCG/DOSE INH AEPB 1 puff twice a day for asthma FLUTICASONE-SALMETEROL 58671165963 No Longer Active Ahmet Carbajal MD Active KLONOPIN 1 MG ORAL TABS 1 tab po TID CLONAZEPAM 35667440390 No Longer Active Ahmet Carbajal MD Active ABILIFY MAINTENA 400 MG IM SUSR 400mg injection every 26 days ARIPIPRAZOLE 14126737765 No Longer Active Ahmet Carbajal MD Active TRAMADOL HCL 50 MG TABS 1/2-1 tab TID PRN TRAMADOL HCL 65909766312 No Longer Active Ahmet Carbajal MD Active BACTRIM DS 800-160 MG TABS 1 twice a day SULFAMETHOXAZOLE- TRIMETHOPRIM 52905166374 No Longer Active Ahmet Carbajal MD Active PROAIR HFA 108 (90 BASE) MCG/ACT AERS 2 puffs four times a day as needed 2015 ALBUTEROL SULFATE 28901633876 Active Ahmet Carbajal MD Active MONISTAT 7 COMBO PACK WOODROW 100 & 2 MG-% (9GM) VAG KIT 1 applicatorful per vagina q pm x 7 MICONAZOLE NITRATE 67998510407 No Longer Active Ahmet Carbajal MD Active FLAGYL 500 MG TAB 1 tablet by mouth bid METRONIDAZOLE 61342271866 No Longer Active Ahmet Carbajal MD Active OXYCODONE HCL ER 10 MG ORAL T12A 1/2 tab by mouth every 4 hours prn OXYCODONE HCL 42617350468 No Longer Active Ahmet Carbajal MD Active METHYLPREDNISOLONE 4 MG ORAL TABS po daily METHYLPREDNISOLONE 46083877473 No Longer Active Ahmet Carbajal MD Active LEVOFLOXACIN 500 MG ORAL TABS po daily LEVOFLOXACIN 10082955777 No Longer Active Ahmet Carbajal MD Active VIIBRYD 10 MG ORAL TABS Take 1 tablet once a day VILAZODONE HCL 76677085591 No Longer Active Ahmet Carbajal MD Active TOPAMAX 50 MG ORAL TABS 1 tab twice daily TOPIRAMATE 99392613995 No Longer Active Ahmet Carbajal MD Active DICLOFENAC SODIUM 50 MG TBEC 1 tablet by mouth four times daily PRN Pain 2015 DICLOFENAC SODIUM 74585725757 No Longer Active Ahmet Carbajal MD Active ADZENYS XR-ODT 6.3 MG ORAL TBED 1 tab po daily for ADHD AMPHETAMINE 19764208788 No Longer Active Ahmet Carbajal MD Active CHANTIX 1 MG TABS 1 twice a day to help quit smoking VARENICLINE TARTRATE 74464140742 No Longer Active Dipika Burgos MD Active CHANTIX STARTING MONTH EARNEST 0.5 MG X 11 & 1 MG X 42 TABS take as directed 2015 VARENICLINE TARTRATE 99716890300 No Longer Active Dipika Burgos MD Active TESSALON PERLES 100 MG CAP 1 to 2 tablets by mouth 3 times daily as needed for cough BENZONATATE 82871540089 No Longer Active Luigi Martínez APRN Active IMITREX 50 MG ORAL TABS 0.5 po x 1 PRN Headache. May repeat dose x 1 in 2 hours if needed SUMATRIPTAN SUCCINATE 06695628949 Active Ahmet Carbajal MD Active HYDROCODONE-ACETAMINOPHEN 5-325 MG TABS 1 to 2 four times a day as needed for pain use until can be seen by specialist HYDROCODONE- ACETAMINOPHEN 42431950215 No Longer Active Vishal Hui MD Active PROAIR HFA 108 (90 BASE) MCG/ACT AERS 2 puffs four times a day as needed 2015 ALBUTEROL SULFATE 19595920458 No Longer Active Vishal Hui MD Active PREDNISONE 20 MG TABS 2 daily for 5 days then 1 daily for 5 days PREDNISONE 41779380768 No Longer Active Vishal Hui MD Active ZITHROMAX Z-EARNEST 250 MG TABS 2 today and then 1 daily for 4 days AZITHROMYCIN 04323461450 No Longer Active Vishal Hui MD Active DICLOFENAC POTASSIUM TABS Take 1 tablet twice a day (pt. is not sure of the dose.) DICLOFENAC POTASSIUM TABS 09620760512 No Longer Active Vishal Hui MD Active VERAPAMIL HCL ER 120 MG ORAL CR-TABS Take 1 tablet by mouth twice a day. VERAPAMIL HCL 67759079480 Active Vishal Hui MD Active FLAGYL 500 MG TAB 1 tablet by mouth bid METRONIDAZOLE 48607235532 No Longer Active Vishal Hui MD Active VALIUM 5 MG TAB Take 1-2 tablets daily DIAZEPAM 65378012349 No Longer Active Fabiola Johnson APRN Active METOPROLOL TARTRATE 25 MG ORAL TABS 1/2 tablet twice daily for heart rate and blood pressure METOPROLOL TARTRATE 40294761998 No Longer Active Fabiola Johnson APRN Active MIRALAX ORAL POWD 17GMS DAILY IN WATER POLYETHYLENE GLYCOL 3350 01217443676 Active TAMARA Casey Active MIRALAX PACK 1 po qd PRN Constipation POLYETHYLENE GLYCOL 3350 20162969159 No Longer Active Ahmet Carbajal MD Active MINIPRESS 2 MG CAPS 4 cap po at night PRAZOSIN HCL 44407254487 No Longer Active Ahmet Carbajal MD Active PIROXICAM 20 MG CAPS 1 cap po qd PRN Pain PIROXICAM 41119260258 No Longer Active Ahmet Carbajal MD Active TRAMADOL HCL 50 MG TABS 1-2 po TID PRN Pain TRAMADOL HCL 59637298814 No Longer Active Ahmet Carbajal MD Active METOPROLOL TARTRATE 50 MG TAB 1 po bid METOPROLOL TARTRATE 41935671061 No Longer Active Ahmet Carbajal MD Active ABILIFY 15 MG ORAL TABS 1 tab daily ARIPIPRAZOLE 14126886334 No Longer Active Ahmet Carbajal MD Active PROZAC 20 MG ORAL CAPS 1 tab daily FLUOXETINE HCL 60880007814 No Longer Active Ahmet Carbajal MD Active AMBIEN 5 MG ORAL TABS 1 tab at bedtime ZOLPIDEM TARTRATE 71389974015 No Longer Active Ahmet Carbajal MD Active PREDNISONE 20 MG TAB 2 tabs daily for 4 days, 1 tab daily for 4 days, 1/2 tab daily for 4 days PREDNISONE 02918467016 No Longer Active Ahmet Carbajal MD Active KEFLEX 500 MG CAP 1 po TID x 10 days CEPHALEXIN 23057901761 No Longer Active Vishal Hui MD Active SAPHRIS 5 MG SUBL 1 po bid ASENAPINE MALEATE 00754067444 No Longer Active Jillina Mauricio CEMENT LOADER Active LATUDA 80 MG TABS Take one by mouth daily LURASIDONE HCL 71189252616 No Longer Active Jillina Fralebron CEMENT LOADER Active AMLODIPINE BESYLATE 5 MG TABS 1 tablet by mouth daily AMLODIPINE BESYLATE 56085491105 No Longer Active Jillina Mauricio NORIEGA Active AMITRIPTYLINE HCL 100 MG TAB one at hs AMITRIPTYLINE HCL 16095163673 No Longer Active Vishal Hui MD Active TRAZODONE HCL 100 MG TAB take 1 at bedtime TRAZODONE HCL 35978609309 No Longer Active Vishal Hui MD Active VYVANSE 40 MG CAPS 1 daily, LISDEXAMFETAMINE DIMESYLATE 71261946965 No Longer Active Vishal Hui MD Active IBUPROFEN 600 MG TAB 1 po TID PRN IBUPROFEN 65370527886 No Longer Active Vishal Hui MD Active PROZAC 20 MG CAP Take one by mouth daily FLUOXETINE HCL 69653961035 No Longer Active Vishal Hui MD Active BACTRIM DS 800-160 MG TABS 1 pill by mouth twice daily SULFAMETHOXAZOLE-TRIMETHOPRIM 02275380736 No Longer Active Sahara Rodriguez MD PhD Active DIFLUCAN 150 MG TAB 1 tablet by mouth daily FLUCONAZOLE 81259551813 No Longer Active Vishal Hui MD Active TIZANIDINE HCL 4 MG TABS 1 po q6hr PRN Muscle Spasm/Back Pain TIZANIDINE HCL 64829164286 Active Vishal Hui MD Active CLINDAMYCIN HCL 150 MG CAPS 1 four times a day CLINDAMYCIN HCL 02170732307 No Longer Active Neeraj Collins MD Active KEFLEX 500 MG ORAL CAPS 1 cap QID by mouth CEPHALEXIN 47680380762 No Longer Active Neeraj Collins MD Active DIFLUCAN 150 MG TABS 1 pill every other day x 2 doses FLUCONAZOLE 45891913064 No Longer Active Sahara Rodriguez MD PhD Active MELATONIN 3 MG CAPS 2 po q hs MELATONIN 25142363727 No Longer Active Sahara Rodriguez MD PhD Active MULTIVITAMINS CAPS Take one by mouth daily MULTIPLE VITAMIN 68020042570 No Longer Active Sahara Rodriguez MD PhD Active BACTRIM DS 800-160 MG TAB 1 tab by mouth twice daily TRIMETHOPRIM-SULFAMETHOXAZOLE 12965857105 No Longer Active Sahara Rodriguez MD PhD Active [facility] PROBIOTIC ORAL CHEW 2 daily po PROBIOTIC PRODUCT 49187964750 No Longer Active Sahara Rodriguez MD PhD Active BACTRIM DS 800-160 MG TABS 1 po BID x 7 days SULFAMETHOXAZOLE-TRIMETHOPRIM 87870469161 No Longer Active Vishal Hui MD Active CHANTIX STARTING MONTH EARNEST 0.5 MG X 11 & 1 MG X 42 TABS 0.5mg daily for 3 days , then 0.5mg BID for 4 days, then 1mg BID VARENICLINE TARTRATE 82218534738 No Longer Active TAMARA Gray Active VERAPAMIL HCL CR 120 MG TAB CR 1 po bid VERAPAMIL HCL 29303867621 No Longer Active Vishal Hui MD Active METOPROLOL SUCCINATE 50 MG TB24 1 tablet by mouth daily METOPROLOL SUCCINATE 61146685452 No Longer Active Vishal Hui MD Active SAPHRIS 10 MG SUBL 1 tab po bid ASENAPINE MALEATE 58736728726 No Longer Active Vishal Hui MD Active LISINOPRIL 20 MG TABS 1 tab po qd LISINOPRIL 78148634627 No Longer Active Vishal Hui MD Active LATUDA 20 MG TABS Take one by mouth daily LURASIDONE HCL 65293657567 No Longer Active Vishal Hui MD Active TRAZODONE HCL 50 MG TABS 1/2 tab po qd prn for anxiety TRAZODONE HCL 19756358468 No Longer Active Vishal Hui MD Active OMEPRAZOLE 20 MG TBEC 1 po q a.m. 30min prior to first food intake OMEPRAZOLE 43425651696 Active TAMARA Casey Active RANITIDINE HCL 150 MG CAPS 1 twice a day RANITIDINE HCL 87271237552 Active Jilljanee Martínez APRN Active LINZESS 290 MCG CAPS Take one by mouth daily LINACLOTIDE 10618137870 No Longer Active Vishal Hui MD Active SAPHRIS 5 MG SUBL 1 tab po qd ASENAPINE MALEATE 07109152608 No Longer Active Vishal Hui MD Active ZALEPLON 10 MG CAPS 1 cap po every other night ZALEPLON 60235626534 No Longer Active Vishal Hui MD Active LYRICA 50 MG CAPS 1 tab po TID PREGABALIN 73782420901 No Longer Active Vishal Hui MD Active LORATADINE 10 MG TABS 1 tab po qd LORATADINE 45211626318 No Longer Active Vishal Hui MD Active VERAPAMIL HCL ER 180 MG CR-TABS 1 tab po bid VERAPAMIL HCL 09011530162 No Longer Active Vishal Hui MD Active MIRALAX POWD 1 capfull once daily POLYETHYLENE GLYCOL 3350 88139946902 No Longer Active Vishal Hui MD Active PREDNISONE 20 MG TABS 1 tab po qd PREDNISONE 08404008623 No Longer Active Renzo Thornton DO Active LEVOFLOXACIN 500 MG TABS 1 tab po qd LEVOFLOXACIN 67663747578 No Longer Active Renzo Thornton DO Active BUSPIRONE HCL 15 MG TABS 1 tab po TID BUSPIRONE HCL 95140234103 No Longer Active Renzo Thornton DO Active BENZTROPINE MESYLATE 1 MG TABS 1 tab po qd BENZTROPINE MESYLATE 49924005521 No Longer Active Renzo Thornton DO Active ATENOLOL 25 MG TABS 1 tab po qd ATENOLOL 12223139843 No Longer Active Renzo Thornton DO Active ESCITALOPRAM OXALATE 20 MG TABS 1 tab po qd ESCITALOPRAM OXALATE 22999393939 No Longer Active Renzo Thornton DO Active ADVAIR DISKUS 250-50 MCG/DOSE AEPB 1 puff BID FLUTICASONE-SALMETEROL 30011273809 No Longer Active Renzo Thornton DO Active PREDNISONE 20 MG TAB 2 tabs daily for 3 days, 1 tab daily for 3 days, 1/2 tab daily for 2 days PREDNISONE 22336168371 No Longer Active Vishal Hui MD Active CEFDINIR 300 MG CAPS by mouth twice a day CEFDINIR 27734317249 No Longer Active Vishal Hui MD Active LANSOPRAZOLE 30 MG CPDR 1 cap po qd LANSOPRAZOLE 17587476717 No Longer Active Vishal Hui MD Active BACLOFEN 20 MG TABS 1 tab po tid BACLOFEN 20185275226 No Longer Active Vishal Hui MD Active ADVAIR DISKUS 250-50 MCG/DOSE AEPB 1 puff BID ADVAIR DISKUS 250-50 MCG/DOSE AEPB FLUTICASONE-SALMETEROL Inactive ESCITALOPRAM OXALATE 20 MG TABS 1 tab po qd ESCITALOPRAM OXALATE 20 MG TABS 542628 ESCITALOPRAM OXALATE Inactive ATENOLOL 25 MG TABS 1 tab po qd ATENOLOL 25 MG TABS 161776 ATENOLOL Inactive BENZTROPINE MESYLATE 1 MG TABS 1 tab po qd BENZTROPINE MESYLATE 1 MG TABS 823967 BENZTROPINE MESYLATE Inactive BUSPIRONE HCL 15 MG TABS 1 tab po TID BUSPIRONE HCL 15 MG TABS 098773 BUSPIRONE HCL Inactive LEVOFLOXACIN 500 MG TABS 1 tab po qd LEVOFLOXACIN 500 MG TABS 084000 LEVOFLOXACIN Inactive PREDNISONE 20 MG TABS 1 tab po qd PREDNISONE 20 MG TABS 558500 PREDNISONE Inactive MIRALAX POWD 1 capfull once daily MIRALAX POWD 742281 POLYETHYLENE GLYCOL 3350 Inactive VERAPAMIL HCL ER 180 MG CR-TABS 1 tab po bid VERAPAMIL HCL ER 180 MG CR-TABS VERAPAMIL HCL Inactive LORATADINE 10 MG TABS 1 tab po qd LORATADINE 10 MG TABS 175963 LORATADINE Inactive LYRICA 50 MG CAPS 1 tab po TID LYRICA 50 MG CAPS PREGABALIN Inactive ZALEPLON 10 MG CAPS 1 cap po every other night ZALEPLON 10 MG CAPS 823580 ZALEPLON Inactive SAPHRIS 5 MG SUBL 1 tab po qd SAPHRIS 5 MG SUBL ASENAPINE MALEATE Inactive TRAZODONE HCL 50 MG TABS 1/2 tab po qd prn for anxiety TRAZODONE HCL 50 MG TABS 748912 TRAZODONE HCL Inactive LATUDA 20 MG TABS Take one by mouth daily LATUDA 20 MG TABS LURASIDONE HCL Inactive LISINOPRIL 20 MG TABS 1 tab po qd LISINOPRIL 20 MG TABS 759863 LISINOPRIL Inactive SAPHRIS 10 MG SUBL 1 [...] twice daily BACTRIM DS 800-160 MG TAB 730229 TRIMETHOPRIM-SULFAMETHOXAZOLE Inactive MULTIVITAMINS CAPS Take one by mouth daily MULTIVITAMINS CAPS MULTIPLE VITAMIN Inactive MELATONIN 3 MG CAPS 2 po q hs MELATONIN 3 MG CAPS 145186 MELATONIN Inactive KEFLEX 500 MG ORAL CAPS 1 cap QID by mouth KEFLEX 500 MG ORAL CAPS 834583 CEPHALEXIN Inactive CLINDAMYCIN HCL 150 MG CAPS 1 four times a day CLINDAMYCIN HCL 150 MG CAPS 194115 CLINDAMYCIN HCL Inactive DIFLUCAN 150 MG TAB 1 tablet by mouth daily DIFLUCAN 150 MG TAB 171744 FLUCONAZOLE Inactive PROZAC 20 MG CAP Take one by mouth daily PROZAC 20 MG CAP 057005 FLUOXETINE HCL Inactive IBUPROFEN 600 MG TAB 1 po TID PRN IBUPROFEN 600 MG TAB 700342 IBUPROFEN Inactive VYVANSE 40 MG CAPS 1 daily, VYVANSE 40 MG CAPS LISDEXAMFETAMINE DIMESYLATE Inactive TRAZODONE HCL 100 MG TAB take 1 at bedtime TRAZODONE HCL 100 MG TAB 419863 TRAZODONE HCL Inactive AMITRIPTYLINE HCL 100 MG TAB one at hs AMITRIPTYLINE HCL 100 MG TAB 472337 AMITRIPTYLINE HCL Inactive AMLODIPINE BESYLATE 5 MG TABS 1 tablet by mouth daily AMLODIPINE BESYLATE 5 MG TABS 663183 AMLODIPINE BESYLATE Inactive LATUDA 80 MG TABS Take one by mouth daily LATUDA 80 MG TABS LURASIDONE HCL Inactive SAPHRIS 5 MG SUBL 1 po bid SAPHRIS 5 MG SUBL ASENAPINE MALEATE Inactive PREDNISONE 20 MG TAB 2 tabs daily for 4 days, 1 tab daily for 4 days, 1/2 tab daily for 4 days PREDNISONE 20 MG TAB 746652 PREDNISONE Inactive AMBIEN 5 MG ORAL TABS 1 tab at bedtime AMBIEN 5 MG ORAL TABS 732688 ZOLPIDEM TARTRATE Inactive PROZAC 20 MG ORAL CAPS 1 tab daily PROZAC 20 MG ORAL CAPS 654467 FLUOXETINE HCL Inactive ABILIFY 15 MG ORAL TABS 1 tab daily ABILIFY 15 MG ORAL TABS 336824 ARIPIPRAZOLE Inactive METOPROLOL TARTRATE 50 MG TAB 1 po bid METOPROLOL TARTRATE 50 MG TAB 021190 METOPROLOL TARTRATE Inactive TRAMADOL HCL 50 MG TABS 1-2 po TID PRN Pain TRAMADOL HCL 50 MG TABS 954339 TRAMADOL HCL Inactive PIROXICAM 20 MG CAPS 1 cap po qd PRN Pain PIROXICAM 20 MG CAPS 449207 PIROXICAM Inactive MINIPRESS 2 MG CAPS 4 cap po at night MINIPRESS 2 MG CAPS 314547 PRAZOSIN HCL Inactive MIRALAX PACK 1 po qd PRN Constipation MIRALAX PACK 845084 POLYETHYLENE GLYCOL 3350 Inactive METOPROLOL TARTRATE 25 MG ORAL TABS 1/2 tablet twice daily for heart rate and blood pressure METOPROLOL TARTRATE 25 MG ORAL TABS 245802 METOPROLOL TARTRATE Inactive VALIUM 5 MG TAB Take 1-2 tablets daily VALIUM 5 MG TAB 520782 DIAZEPAM Inactive FLAGYL 500 MG TAB 1 tablet by mouth bid FLAGYL 500 MG TAB 446695 METRONIDAZOLE Inactive DICLOFENAC POTASSIUM TABS Take 1 tablet twice a day (pt. is not sure of the dose.) DICLOFENAC POTASSIUM TABS DICLOFENAC POTASSIUM TABS Inactive ZITHROMAX Z-EARNEST 250 MG TABS 2 today and then 1 daily for 4 days ZITHROMAX Z-EARNEST 250 MG TABS 4205620 AZITHROMYCIN Inactive PREDNISONE 20 MG TABS 2 daily for 5 days then 1 daily for 5 days PREDNISONE 20 MG TABS 526743 PREDNISONE Inactive PROAIR HFA 108 (90 BASE) MCG/ACT AERS 2 puffs four times a day as needed 2015 PROAIR HFA 108 (90 BASE) MCG/ACT AERS ALBUTEROL SULFATE Inactive HYDROCODONE-ACETAMINOPHEN 5-325 MG TABS 1 to 2 four times a day as needed for pain use until can be seen by specialist HYDROCODONE- ACETAMINOPHEN 5-325 MG TABS 553519 HYDROCODONE-ACETAMINOPHEN Inactive TESSALON PERLES 100 MG CAP 1 to 2 tablets by mouth 3 times daily as needed for cough TESSALON PERLES 100 MG CAP 666124 BENZONATATE Inactive CHANTIX STARTING MONTH EARNEST 0.5 [...] Pain 2015 DICLOFENAC SODIUM 50 MG TBEC 462815 DICLOFENAC SODIUM Inactive TOPAMAX 50 MG ORAL TABS 1 tab twice daily TOPAMAX 50 MG ORAL TABS 602169 TOPIRAMATE Inactive VIIBRYD 10 MG ORAL TABS Take 1 tablet once a day VIIBRYD 10 MG ORAL TABS VILAZODONE HCL Inactive LEVOFLOXACIN 500 MG ORAL TABS po daily LEVOFLOXACIN 500 MG ORAL TABS 563146 LEVOFLOXACIN Inactive METHYLPREDNISOLONE 4 MG ORAL TABS po daily METHYLPREDNISOLONE 4 MG ORAL TABS 007962 METHYLPREDNISOLONE Inactive OXYCODONE HCL ER 10 MG ORAL T12A 1/2 tab by mouth every 4 hours prn OXYCODONE HCL ER 10 MG ORAL T12A OXYCODONE HCL Inactive FLAGYL 500 MG TAB 1 tablet by mouth bid FLAGYL 500 MG TAB 033312 METRONIDAZOLE Inactive MONISTAT 7 COMBO PACK WOODROW 100 & 2 MG-% (9GM) VAG KIT 1 applicatorful per vagina q pm x 7 MONISTAT 7 COMBO PACK WOODROW 100 & 2 MG-% (9GM) VAG KIT MICONAZOLE NITRATE Inactive BACTRIM DS 800-160 MG TABS 1 twice a day BACTRIM DS 800-160 MG TABS 634208 SULFAMETHOXAZOLE-TRIMETHOPRIM Inactive TRAMADOL HCL 50 MG TABS 1/2-1 tab TID PRN TRAMADOL HCL 50 MG TABS 500251 TRAMADOL HCL Inactive ABILIFY MAINTENA 400 MG IM SUSR 400mg injection every 26 days ABILIFY MAINTENA 400 MG IM SUSR ARIPIPRAZOLE Inactive KLONOPIN 1 MG ORAL TABS 1 tab po TID KLONOPIN 1 MG ORAL TABS 099128 CLONAZEPAM Inactive ADVAIR DISKUS 250-50 MCG/DOSE INH AEPB 1 puff twice a day for asthma ADVAIR DISKUS 250-50 MCG/DOSE INH AEPB FLUTICASONE- SALMETEROL Inactive BENADRYL 25 MG CAP 4 po at bedtime for insomnia BENADRYL 25 MG CAP DIPHENHYDRAMINE HCL Inactive PREDNISONE 20 MG TABS 2 daily for 5 days then 1 daily for 5 days PREDNISONE 20 MG TABS 624407 PREDNISONE Inactive HYDROCODONE-ACETAMINOPHEN 5-325 MG ORAL TABS 1 tab two times a day HYDROCODONE-ACETAMINOPHEN 5-325 MG ORAL TABS 892349 HYDROCODONE-ACETAMINOPHEN Inactive ZITHROMAX Z-EARNEST 250 MG TABS 2 today and then 1 daily for 4 days ZITHROMAX Z-EARNEST 250 MG TABS 2715242 AZITHROMYCIN Inactive GUAIFENESIN-CODEINE 100-10 MG/5ML SYRP 5ml every 4 to 6 hours as needed for cough GUAIFENESIN-CODEINE 100-10 MG/5ML SYRP 739800 GUAIFENESIN-CODEINE Inactive HALOPERIDOL 10 MG ORAL TABS 1 tab q.d HALOPERIDOL 10 MG ORAL TABS 945774 HALOPERIDOL Inactive ASPIRIN 325 MG ORAL TABS 1 tab q.d ASPIRIN 325 MG ORAL TABS 913932 ASPIRIN Inactive FLUTICASONE PROPIONATE 50 MCG/ACT SUSP 2 sprays each nostril daily before bed. FLUTICASONE PROPIONATE 50 MCG/ACT SUSP 3496771 FLUTICASONE PROPIONATE Inactive ZOFRAN 4 MG TABS 1 po q6hr PRN Nausea ZOFRAN 4 MG TABS 053361 ONDANSETRON HCL Inactive KEFLEX 500 MG CAP 1 po qid KEFLEX 500 MG CAP 253259 CEPHALEXIN Inactive ACETAMINOPHEN-CODEINE 120-12 MG/5ML SOLN 5 ml by mouth every 4-6 hours if needed for cough ACETAMINOPHEN-CODEINE 120-12 MG/5ML SOLN 996759 ACETAMINOPHEN-CODEINE Inactive PREDNISONE 20 MG TAB 1 tablet daily x 4 days PREDNISONE 20 MG TAB 389418 PREDNISONE Inactive TROPICAMIDE 0.5 % OPHTH SOLN 1 drop PRN eye spasms TROPICAMIDE 0.5 % OPHTH SOLN 064010 TROPICAMIDE Inactive LEVAQUIN 500 MG TABS 1 daily for infection LEVAQUIN 500 MG TABS 840256 LEVOFLOXACIN Inactive PREDNISONE 10 MG TABS 2 daily for 5 days then 1 daily for 5 days PREDNISONE 10 MG TABS 779808 PREDNISONE Inactive EQ NICOTINE 21 MG/24HR TRANS [...] for cough TESSALON PERLES 100 MG CAPS 938993 BENZONATATE Inactive CEFDINIR 300 MG CAPS by mouth twice a day CEFDINIR 300 MG CAPS 734462 CEFDINIR Inactive PREDNISONE 20 MG TAB 2 tabs daily for 3 days, 1 tab daily for 3 days, 1/2 tab daily for 2 days PREDNISONE 20 MG TAB 281829 PREDNISONE Inactive BACTRIM DS 800-160 MG TABS [...] x 10 days KEFLEX 500 MG CAP 088711 CEPHALEXIN Inactive Advance Directives Directive Description Start [...] % 11.0-15.0 platelet count 443 THOUSAND/UL 10*3/mm3 317-748 1815/03/01 mean platelet volume 8.2 fL 7.5-12.5 leukocyte [...] % 11.0-15.0 platelet count 349 THOUSAND/UL 10*3/mm3 043-497 8875/04/12 mean platelet volume 8.4 fL 7.5-12.5 Lab [...] 369 10^3/MM^3 10*3/mm3 142-424 Lab Report: Chlamydia/GC APTIMA/[id number] - Lab chlamydia DNA probe NOT DETECTED NOT DETECTED Lab Report: Chlamydia/GC APTIMA/[id number] - Microbiology Neisseria gonorrhoeae DNA probe NOT DETECTED NOT DETECTED Lab Report: Chlamydia/[facility]TIM[facility]/[id number], Urinalysis, Complete, with Reflex ... - Lab chlamydia DNA probe NOT DETECTED NOT DETECTED Lab Report: Chlamydia/[facility]TIM[facility]/[id number], Urinalysis, Complete, with Reflex ... - Microbiology Neisseria gonorrhoeae DNA probe NOT DETECTED NOT DETECTED Lab Report: Chlamydia/[facility]TIMA/[id number], Urinalysis, Complete, with Reflex ... - Urinalysis microalbumin/total urine volume 2 mg/L Units converted. See lab report for original value. microalbumin/creatinine ratio, urine 9 MCG/MG CREAT mg/L <30 Lab Report: Comp. Metabolic Panel - Chemistry sodium, serum 142 mmol/L 986-675 8253/06/08 carbon dioxide, venous blood 27.6 mmol/L 21.0-32.0 potassium, serum 4.0 mmol/L 3.5-5.2 chloride, serum 105 mmol/L 98-107 blood glucose 95 mg/dL 65-110 urea nitrogen, blood 8 mg/dL 7-18 creatinine, serum 0.75 mg/dL 0.55-1.30 alanine aminotransferase (SGPT), serum 49 U/L 12-78 aspartate aminotransferase (SGOT), serum 28 U/L 15-37 calcium, serum 9.4 mg/dL 8.5-10.1 bilirubin, serum, total 0.30 mg/dL 0.00-1.00 sodium, serum 140 mmol/L 093-720 4497/08/08 carbon dioxide, venous blood 33.7 mmol/L 21.0-32.0 [...] mg/dL Encounters Code Encounter Date Provider Facility CPT-59377 Level 3 Est. Patient 10:00:25 CDT Suzan Boo [facility] CPT-75940 Level 3 Est. Patient 10:29:30 CDT Suzan Boo [facility] CPT-19906 Level 3 Est. Patient 11:04:38 CDT Renzo Thornton [facility] CPT-64137 Level 3 Est. Patient 11:15:58 [employer] Renzo Thornton [facility] CPT-34565 Level 3 Est. Patient 15:28:23 [employer] Suzan Boo [facility] CPT-20683 Level 4 Est. Patient 10:20:54 [employer] Suzan Boo [facility] CPT-79532 Level 3 Est. Patient 11:47:37 [employer] Ahmet Carbajal MD [facility] CPT-20995 Level 3 Est. Patient 10:40:11 [employer] Ahmet Carbajal MD [facility] CPT-52526 Level 3 Est. Patient 15:07:06 [employer] Neeraj Collins MD [facility] CPT-59028 Level 4 Est. Patient 14:45:00 [employer] Ahmet Carbajal MD [facility] CPT-82883 Level 3 Est. Patient 13:59:59 CDT Luigi Martínez [facility] CPT-77013 Level 3 Est. Patient 18:18:53 CDT Neeraj Collins MD [facility] CPT-34495 Level 3 Est. Patient 15:50:44 CDT Vishal Hui MD [facility] CPT-40253 Level 3 Est. Patient 11:36:17 CDT Ahmet Carbajal MD [facility] CPT-80649 Level 3 Est. Patient 13:29:16 CDT Vishal Hui MD [facility] CPT-94204 Level 3 Est. Patient 14:27:52 CDT Neeraj Collins MD [facility] CPT-62289 Level 3 Est. Patient 08:56:03 CDT Luigi Martínez [facility] CPT-92689 Level 4 Est. Patient 12:11:48 CDT Fabiola Johnson [facility] CPT-33901 Level 3 New Patient 16:53:37 CDT Albert Caldera MD [facility] CPT-60674 Level 3 Est. Patient 11:25:49 CDT Renzo Thornton DO [facility] CPT-65492 Level 3 Est. Patient 15:22:01 CDT Ahmet Carbajal MD [facility] CPT-09760 Level 4 Est. Patient 09:00:51 [employer] Vishal Hui MD [facility] CPT-20535 Level 3 Est. Patient 11:37:33 [employer] Vishal Hui MD [facility] CPT-63181 Level 3 Est. Patient 08:41:09 [employer] Vishal Hui MD [facility] CPT-49509 Level 4 Est. Patient 10:19:35 [employer] Vishal Hui MD [facility] CPT-25891 Level 3 Est. Patient 13:35:45 CDT Vishal Hui MD [facility] CPT-28636 Level 4 Est. Patient 10:08:37 CDT Vishal Hui MD [facility] CPT-31502 Level 3 Est. Patient 11:22:10 CDT Vishal Hui MD [facility] CPT-26657 Level 3 Est. Patient 11:03:32 CDT Sahara Rodriguez MD [facility]-21113 Level 3 Est. Patient 09:41:35 CDT Vishal Hui MD [facility] CPT-00057 Level 3 Est. Patient 12:00:41 CDT Neeraj Collins MD [facility]-06204 Level 3 Est. Patient 09:16:24 CDT Vishal Hui MD [facility] CPT-53951 Level 4 Est. Patient 13:59:09 CDT Neeraj Collins MD [facility] CPT-05011 Level 3 Est. Patient 15:19:43 CDT Renzo Thornton DO [facility] CPT-83853 Level 3 Est. Patient 18:10:26 CDT Sahara Rodriguez MD [facility]-23786 Level 3 Est. Patient 14:49:50 CDT Vishal Hui MD [facility] CPT-58887 Level 4 Est. Patient 18:41:46 CDT Neeraj Collins MD [facility] CPT-02014 Level 4 Est. Patient 09:18:38 [employer] Vishal Hui MD [facility] CPT-22396 Level 3 Est. Patient 14:43:55 [employer] Vishal Hui MD [facility] CPT-64880 Level 3 Est. Patient 15:26:33 [employer] Sahara Rodriguez MD PhD [facility] CPT-18589 Level 3 Est. Patient 10:32:14 [employer] Vishal Hui MD [facility] CPT-56012 Level 3 Est. Patient 15:12:52 [employer] Vishal Hui MD [facility] CPT-61329 Level 4 Est. Patient 09:19:27 CDT Vishal Hui MD [facility] CPT-27653 Level 3 Est. Patient 15:53:00 CDT Renzo Thornton [facility] CPT-07825 Level 3 Est. Patient 15:50:30 CDT Renzo Thornton [facility] CPT-26169 Level 3 Est. Patient 16:55:24 CDT Vishal Hui MD [facility] Procedures Code Procedure Name Date Entry Date Standard Description CPT-70824 Venipuncture Draw Fee 08:41:12 CDT CPT-73718 Abd compl w upright - XRAY USE ONLY 10:27:59 CDT 06/28 CPT-53450 Smoking Cessation counseling 11:15:58 [employer] CPT-G0439 [facility] Annual Wellness Exam 09:30:58 [employer] CPT-72886 TSH - LAB USE ONLY 08:50:26 [employer] CPT-43233 CBC - LAB USE ONLY 08:50:26 [employer] CPT-87446 Venipuncture Draw Fee 08:50:26 [employer] CPT-88769 Abx/Therapy Injection 17:34:30 [employer] CPT-66165 Nexplanon Removal with Reinsertion 14:09:32 CDT CPT-J7307 Nexplanon (Implant) 14:09:32 CDT CPT-OV Office Visit 14:09:32 CDT CPT-13861 UA w micro - LAB USE ONLY 16:21:13 CDT CPT-41524 Wet Mount - LAB USE ONLY 16:21:13 CDT CPT-59832 First Vx - Ix admin for Medicare patients 14:37:47 CDT CPT-78063 Fluzone Preservative Free Intramuscular Suspension 14:37 :47 CDT CPT-17079 Abx/Therapy Injection 13:54:22 CDT CPT-73030 Abx/Therapy Injection 08:47:09 CDT CPT-71645 Abx/Therapy Injection 13:29:56 CDT CPT-09870 Abx/Therapy Injection 08:36:16 CDT CPT-17750 Wet Mount - LAB USE ONLY 17:44:58 CDT CPT-84191 UA w micro - LAB USE ONLY 17:44:58 CDT CPT-14021 CMP - LAB USE ONLY 17:44:58 CDT CPT-35543 Venipuncture Draw Fee 17:44:58 CDT CPT-88615 Cervical Min 4V - XRAY USE ONLY 09:01:40 CDT CPT-46319 Chest 2V Frontal and Lat - XRAY USE ONLY 11:06:31 CDT CPT-67269 EKG Trac and Interp - XRAY USE ONLY 11:31:43 CDT 08/26 CPT-J3420 Vitamin B12 1000mcg (Cyanocobalamin) 08:10:26 [employer] 04/12 CPT-38457 Abx/Therapy Injection 08:10:26 [employer] CPT-G0438 Initial Annual Wellness Exam 19:01:01 [employer] CPT-J3420 Vitamin B12 1000mcg (Cyanocobalamin) 16:57:46 CDT 08/14 CPT-27516 Recombivax HB Injection Suspension 5 MCG/0.5ML 08:37:50 [employer] CPT-44124 Immunization Single Admin 08:37:50 [employer] CPT-J3420 Vitamin B12 1000mcg (Cyanocobalamin) 08:32:16 [employer] 03/11 CPT-80745 Abx/Therapy Injection 08:32:16 [employer] CPT-76267 Chest 2V Frontal and Lat 11:46:38 [employer] CPT-53704 Venipuncture Draw Fee 09:12:45 [employer] CPT-J3420 Vitamin B12 1000mcg (Cyanocobalamin) 08:50:15 [employer] 02/08 CPT-87822 Abx/Therapy Injection 08:50:15 [employer] CPT-Cryo Cryotherapy 10:19:35 [employer] CPT-000 Give Appropriate Flu Vaccine 09:22:16 CDT CPT-J3420 Vitamin B12 1000mcg (Cyanocobalamin) 19:08:57 CDT 01/11 CPT-53432 Abx/Therapy Injection 19:08:57 CDT CPT-J3420 Vitamin B12 1000mcg (Cyanocobalamin) 08:19:08 CDT 12/11 CPT-83843 Abx/Therapy Injection 08:19:08 CDT CPT-J3420 Vitamin B12 1000mcg (Cyanocobalamin) 14:48:00 CDT 11/09 CPT-90804 Abx/Therapy Injection 14:47:59 CDT CPT-J3420 Vitamin B12 1000mcg (Cyanocobalamin) 08:34:04 CDT 10/09 CPT-87468 Abx/Therapy Injection 08:34:04 CDT CPT-J3420 Vitamin B12 1000mcg (Cyanocobalamin) 09:18:52 CDT 09/11 CPT-32245 Abx/Therapy Injection 09:18:52 CDT CPT-J3420 Vitamin B12 1000mcg (Cyanocobalamin) 08:35:44 CDT 09/04 CPT-84501 Abx/Therapy Injection 08:35:44 CDT CPT-32341 Immunization Single Admin 11:07:16 CDT CPT-16026 Hepatitis B adult IM 11:07:16 CDT CPT-J3420 Vitamin B12 1000mcg (Cyanocobalamin) 11:00:49 CDT 08/28 CPT-J1040 Depo Medrol 80 mg (Methyl Prednisolone Acetate) 11:00: 49 CDT CPT-28537 Abx/Therapy Injection 11:00:49 CDT CPT-J1040 Depo Medrol 80 mg (Methyl Prednisolone Acetate) 09:16: 23 CDT CPT-J3420 Vitamin B12 1000mcg (Cyanocobalamin) 08:27:05 CDT 08/20 CPT-99759 Abx/Therapy Injection 08:27:05 CDT CPT-15149 Recombivax HB Injection Suspension 5 MCG/0.5ML 10:00:41 CDT CPT-57465 Administration single or combination vaccine inc oral 10 :00:41 CDT CPT-82106 Sono transvag pelvis non OB uterus ovaries cervix 16:36: 57 CDT CPT-11759 LS spine comp w obliq 09:50:55 [employer] CPT-23433 Abd compl w upright 09:50:55 [employer] CPT-J1100 Decadron 4mg (Dexamethasone) 15:51:24 [employer] CPT-J1030 Depo Medrol 40 mg (Methyl Prednisolone Acetate) 15:51: 24 [employer] CPT-68531 Abx/Therapy Injection 15:51:24 [employer] CPT-J1100 Decadron 4mg (Dexamethasone) 15:26:33 [employer] CPT-J1030 Depo Medrol 40 mg (Methyl Prednisolone Acetate) 15:26: 33 [employer] CPT-96561 Sono retroperitoneal complete kidneys and bladder 17:15: 30 CDT CPT-42677 Abd compl w upright 16:09:25 CDT CPT-J1100 Decadron 8mg (Dexamethasone) 17:07:57 CDT CPT-32421 Abx/Therapy Injection 17:07:57 CDT CPT-J1100 Decadron 8mg (Dexamethasone) 16:55:24 CDT CPT-77224 Chest 2V Frontal and Lat 16:32:44 CDT
--- OUTSIDE RECORDS SUMMARY | 2016-11-04 15:47 | XMS REPORT | Clinical Summary ---
Author Author Admin, [facility] Organization [facility] Address Unknown Phone Unavailable Allergies, Adverse Reactions, [...] Active Ahmet Carbajal MD Generalized anxiety disorder Liquor Maker well woman exam V72.31 Resolved Suzan Boo [...] for closed fracture ICD-823.01 Inactive Suzan Boo FOOD AND BEVERAGE CASHIER Vaginal discharge ICD-623.5 Inactive Suzan Boo FOOD AND BEVERAGE CASHIER DYSURIA ICD-788.1 Inactive Suzan Boo FOOD AND BEVERAGE CASHIER Cellulitis and abscess of breast ICD-611.0 Inactive Ahmet Carbajal MD Nondisplaced transverse fracture of shaft of left fibula, subsequent encounter for closed fracture with routine healing Inactive Suzan Boo FOOD AND BEVERAGE CASHIER Bronchitis, acute ICD-466.0 Inactive Ahmet Carbajal MD Liquor Maker well woman exam ICD-V72.31 Inactive Suzan Boo FOOD AND BEVERAGE CASHIER Bronchitis, acute with mild bronchospasm ICD-466.0 Inactive Suzan Boo FOOD AND BEVERAGE CASHIER Tracheitis ICD-464.10 Inactive Suzan Boo FOOD AND BEVERAGE CASHIER Impetigo ICD-684 Inactive Suzan Boo FOOD AND BEVERAGE CASHIER Furuncle of buttock ICD-680.5 Inactive Suzan Boo FOOD AND BEVERAGE CASHIER Vaginal irritation ICD-623.9 Inactive Suzan Boo FOOD AND BEVERAGE CASHIER Scalding pain on urination ICD-788.1 Inactive Suzan Boo FOOD AND BEVERAGE CASHIER Abdominal pain, right upper quadrant ICD-789.01 Inactive Suzan Boo FOOD AND BEVERAGE CASHIER Dark urine ICD-791.9 Inactive Suzan Boo APRN Preop exam ICD-V72.84 Inactive Suzan Boo APRN Medication List Medication Instructions Start Date Stop Date Generic Name ND Status Provider Patient Instruction METFORMIN HCL 500 MG [id number] one a day for a week, then 2 a day METFORMIN HCL 26208217310 Active Malharvey Zigledenilson HADDAD Active NYSTATIN 699179 UNIT/GM CREA apply three times a day to yeast rash NYSTATIN 64229328661 No Longer Active Maliheh Ziglari SENIOR PROCESS ANALYST Active BACTRIM DS 800-160 MG TABS 1 twice a day SULFAMETHOXAZOLE-TRIMETHOPRIM 34762813977 No Longer Active Maliheh Ziglari SENIOR PROCESS ANALYST Active MUPIROCIN 2 % OINT apply twice a day MUPIROCIN 85632287382 Active Suzan Boo APRN Active [id number] 50-325-40 MG TABS 1 to 2 four times a day as needed for headache [id number] 43828777133 Active Suzan Boo APRN Active METOCLOPRAMIDE HCL 10 MG TABS 1 two times as needed for nausea and headaches METOCLOPRAMIDE HCL 20222350084 Active Meena Ortiz MA Active AMITIZA 24 MCG ORAL CAPS one capsule twice daily LUBIPROSTONE 37669396003 Active Suzan Boo APRN Active MIRALAX ORAL POWD 17GMS DAILY IN WATER POLYETHYLENE GLYCOL 3350 74829291880 No Longer Active Suzan Boo APRN Active LACTULOSE 10 GM/15ML ORAL SOLN 30mL oral BID for IBS-C LACTULOSE 14150080825 No Longer Active Suzan Boo APRN Active BACTRIM DS 800-160 MG TAB Take one (1) tablet by mouth twice a day for 5 days TRIMETHOPRIM-SULFAMETHOXAZOLE 58354865533 No Longer Active Suzan Boo APRN Active MUPIROCIN 2 % OINT apply twice a day MUPIROCIN 54753308434 No Longer Active Suzan Boo APRN Active BACTRIM DS 800-160 MG TABS 1 twice a day SULFAMETHOXAZOLE-TRIMETHOPRIM 68399970934 No Longer Active Suzan Boo APRN Active DIFLUCAN 150 MG TABS 1 by mouth for yeast FLUCONAZOLE 40927671300 No Longer Active Suzan Boo APRN Active LINZESS 290 MCG ORAL CAPS 1 tab 30 min prior to first meal each day. LINACLOTIDE 92432394977 No Longer Active Sheila Calderon LPN Active AMITIZA 8 MCG ORAL CAPS 1 tab BID LUBIPROSTONE 92256095223 No Longer Active Lynda Xiao LPN Active TESSALON PERLES 100 MG CAPS 1 three times a day as needed for cough BENZONATATE 63886741806 No Longer Active Suzan Boo APRN Active BACTRIM DS 800-160 MG TABS 1 twice a day SULFAMETHOXAZOLE-TRIMETHOPRIM 67473843162 No Longer Active Suzan Boo APRN Active DIFLUCAN 150 MG TABS 1 by mouth for yeast FLUCONAZOLE 11125837471 No Longer Active Suzan Boo APRN Active EQ NICOTINE 21 MG/24HR TRANS PT24 Apply daily to stop smoking NICOTINE 19426550939 No Longer Active Suzan Boo APRN Active PREDNISONE 10 MG TABS 2 daily for 5 days then 1 daily for 5 days PREDNISONE 53446343508 No Longer Active Suzan Boo APRN Active LEVAQUIN 500 MG TABS 1 daily for infection LEVOFLOXACIN 53923795141 No Longer Active Suzan Boo APRN Active TROPICAMIDE 0.5 % OPHTH SOLN 1 drop PRN eye spasms TROPICAMIDE 18582004458 No Longer Active Suzan Boo APRN Active PREDNISONE 20 MG TAB 1 tablet daily x 4 days PREDNISONE 42895097091 No Longer Active Suzan Boo APRN Active ACETAMINOPHEN-CODEINE 120-12 MG/5ML SOLN 5 ml by mouth every 4-6 hours if needed for cough ACETAMINOPHEN-CODEINE 07624528895 No Longer Active Suzan Boo APRN Active KEFLEX 500 MG CAP 1 po qid CEPHALEXIN 46584588444 No Longer Active Suzan Boo APRN Active FLOVENT HFA 110 MCG/ACT AERO 2 puffs inhaled b.i.d. FLUTICASONE PROPIONATE HFA 22704071994 Active Renzo Thornton DO Active RISPERDAL 4 MG ORAL TABS 1 tab at bedtime RISPERIDONE 28004919839 Active Samantha WAGNERA Active ZOFRAN 4 MG TABS 1 po q6hr PRN Nausea ONDANSETRON HCL No Longer Active Suzan Boo APRN Active FLUTICASONE PROPIONATE 50 MCG/ACT SUSP 2 sprays each nostril daily before bed. FLUTICASONE PROPIONATE 04247033541 No Longer Active Suzan Boo APRN Active ASPIRIN 325 MG ORAL TABS 1 tab q.d ASPIRIN 03497683259 No Longer Active Suzan Boo APRN Active HALOPERIDOL 10 MG ORAL TABS 1 tab q.d HALOPERIDOL 66076287002 No Longer Active Suzan Boo APRN Active GUAIFENESIN-CODEINE 100-10 MG/5ML SYRP 5ml every 4 to 6 hours as needed for cough GUAIFENESIN-CODEINE 00275862055 No Longer Active Suzan Boo APRN Active ZITHROMAX Z-EARNEST 250 MG TABS 2 today and then 1 daily for 4 days AZITHROMYCIN 63313651559 No Longer Active Suzan Boo APRN Active CLONAZEPAM 1 MG ORAL TABS 1 twice a day and an additional 1 tablet every other day as needed for pseudoseizures or anxiety CLONAZEPAM 12646933818 Active Suzan Boo APRN Active HYDROCODONE-ACETAMINOPHEN 5-325 MG ORAL TABS 1 tab two times a day HYDROCODONE-ACETAMINOPHEN 48356477376 No Longer Active Ahmet Carbajal MD Active LAMICTAL 100 MG ORAL TABS 1 tab 2 times qd. LAMOTRIGINE 45422853107 Active Ahmet Carbajal MD Active PREDNISONE 20 MG TABS 2 daily for 5 days then 1 daily for 5 days PREDNISONE 36304205926 No Longer Active Ahmet Carbajal MD Active FLUTICASONE PROPIONATE 50 MCG/ACT SUSP 1 to 2 sprays each nostril daily for allergies FLUTICASONE PROPIONATE 08204338766 Active Tila Valenzuela Active BENADRYL 25 MG CAP 4 po at bedtime for insomnia DIPHENHYDRAMINE HCL 57143325479 No Longer Active Ahmet Carbajal MD Active ADVAIR DISKUS 250-50 MCG/DOSE INH AEPB 1 puff twice a day for asthma FLUTICASONE-SALMETEROL 55554373864 No Longer Active Ahmet Carbajal MD Active KLONOPIN 1 MG ORAL TABS 1 tab po TID CLONAZEPAM 05003968670 No Longer Active Ahmet Carbajal MD Active ABILIFY MAINTENA 400 MG IM SUSR 400mg injection every 26 days ARIPIPRAZOLE 27356752079 No Longer Active Ahmet Carbajal MD Active TRAMADOL HCL 50 MG TABS 1/2-1 tab TID PRN TRAMADOL HCL 12046928371 No Longer Active Ahmet Carbajal MD Active BACTRIM DS 800-160 MG TABS 1 twice a day SULFAMETHOXAZOLE- TRIMETHOPRIM 92806655470 No Longer Active Ahmet Carbajal MD Active PROAIR HFA 108 (90 BASE) MCG/ACT AERS 2 puffs four times a day as needed 2015 ALBUTEROL SULFATE 62779264119 Active Honey Hinton APRN Active MONISTAT 7 COMBO PACK WOODROW 100 & 2 MG-% (9GM) VAG KIT 1 applicatorful per vagina q pm x 7 MICONAZOLE NITRATE 96754620107 No Longer Active Ahmet Carbajal MD Active FLAGYL 500 MG TAB 1 tablet by mouth bid METRONIDAZOLE 68382354046 No Longer Active Ahmet Carbajal MD Active OXYCODONE HCL ER 10 MG ORAL T12A 1/2 tab by mouth every 4 hours prn OXYCODONE HCL 51463716111 No Longer Active Ahmet Carbajal MD Active METHYLPREDNISOLONE 4 MG ORAL TABS po daily METHYLPREDNISOLONE 24692669416 No Longer Active Ahmet Carbajal MD Active LEVOFLOXACIN 500 MG ORAL TABS po daily LEVOFLOXACIN 90509958873 No Longer Active Ahmet Carbajal MD Active VIIBRYD 10 MG ORAL TABS Take 1 tablet once a day VILAZODONE HCL 84654310811 No Longer Active Ahmet Carbajal MD Active TOPAMAX 50 MG ORAL TABS 1 tab twice daily TOPIRAMATE 59120139326 No Longer Active Ahmet Carbajal MD Active DICLOFENAC SODIUM 50 MG TBEC 1 tablet by mouth four times daily PRN Pain 2015 DICLOFENAC SODIUM 30946042538 No Longer Active Ahmet Carbajal MD Active ADZENYS XR-ODT 6.3 MG ORAL TBED 1 tab po daily for ADHD AMPHETAMINE 26727927747 No Longer Active Ahmet Carbajal MD Active CHANTIX 1 MG TABS 1 twice a day to help quit smoking VARENICLINE TARTRATE 04051086196 No Longer Active Dipika Burgos MD Active CHANTIX STARTING MONTH EARNEST 0.5 MG X 11 & 1 MG X 42 TABS take as directed 2015 VARENICLINE TARTRATE 41378772537 No Longer Active Dipika Burgos MD Active TESSALON PERLES 100 MG CAP 1 to 2 tablets by mouth 3 times daily as needed for cough BENZONATATE 28619264393 No Longer Active Luigi Martínez APRN Active IMITREX 50 MG ORAL TABS 0.5 po x 1 PRN Headache. May repeat dose x 1 in 2 hours if needed SUMATRIPTAN SUCCINATE 02747769277 Active TAMARA Casey Active HYDROCODONE-ACETAMINOPHEN 5-325 MG TABS 1 to 2 four times a day as needed for pain use until can be seen by specialist HYDROCODONE- ACETAMINOPHEN 37097222078 No Longer Active Vishal Hui MD Active PROAIR HFA 108 (90 BASE) MCG/ACT AERS 2 puffs four times a day as needed 2015 ALBUTEROL SULFATE 10731345655 No Longer Active Vishal Hui MD Active PREDNISONE 20 MG TABS 2 daily for 5 days then 1 daily for 5 days PREDNISONE 64607038766 No Longer Active Vishal Hui MD Active ZITHROMAX Z-EARNEST 250 MG TABS 2 today and then 1 daily for 4 days AZITHROMYCIN 11138802941 No Longer Active Vishal Hui MD Active DICLOFENAC POTASSIUM TABS Take 1 tablet twice a day (pt. is not sure of the dose.) DICLOFENAC POTASSIUM TABS 26705921121 No Longer Active Vishal Hui MD Active VERAPAMIL HCL ER 120 MG ORAL CR-TABS Take 1 tablet by mouth twice a day. VERAPAMIL HCL 88792451596 Active Vishal Hui MD Active FLAGYL 500 MG TAB 1 tablet by mouth bid METRONIDAZOLE 45623276809 No Longer Active Vishal Hui MD Active VALIUM 5 MG TAB Take 1-2 tablets daily DIAZEPAM 15434352353 No Longer Active Fabiola Johnson APRN Active METOPROLOL TARTRATE 25 MG ORAL TABS 1/2 tablet twice daily for heart rate and blood pressure METOPROLOL TARTRATE 48663215604 No Longer Active Fabiola Johnson APRN Active MIRALAX PACK 1 po qd PRN Constipation POLYETHYLENE GLYCOL 3350 37222106751 No Longer Active Ahmet Carbajal MD Active MINIPRESS 2 MG CAPS 4 cap po at night PRAZOSIN HCL 43690092450 No Longer Active Ahmet Carbajal MD Active PIROXICAM 20 MG CAPS 1 cap po qd PRN Pain PIROXICAM 92449288674 No Longer Active Ahmet Carbajal MD Active TRAMADOL HCL 50 MG TABS 1-2 po TID PRN Pain TRAMADOL HCL 25639054424 No Longer Active Ahmet Carbajal MD Active METOPROLOL TARTRATE 50 MG TAB 1 po bid METOPROLOL TARTRATE 81162096987 No Longer Active Ahmet Carbajal MD Active ABILIFY 15 MG ORAL TABS 1 tab daily ARIPIPRAZOLE 31463706282 No Longer Active Ahmet Carbajal MD Active PROZAC 20 MG ORAL CAPS 1 tab daily FLUOXETINE HCL 68330227554 No Longer Active Ahmet Carbajal MD Active AMBIEN 5 MG ORAL TABS 1 tab at bedtime ZOLPIDEM TARTRATE 05929896130 No Longer Active Ahmet Carbajal MD Active PREDNISONE 20 MG TAB 2 tabs daily for 4 days, 1 tab daily for 4 days, 1/2 tab daily for 4 days PREDNISONE 69572740924 No Longer Active Ahmet Carbajal MD Active KEFLEX 500 MG CAP 1 po TID x 10 days CEPHALEXIN 19596066512 No Longer Active Vishal Hui MD Active SAPHRIS 5 MG SUBL 1 po bid ASENAPINE MALEATE 10882451150 No Longer Active Luigi Martínez APRN Active LATUDA 80 MG TABS Take one by mouth daily LURASIDONE HCL 93758760615 No Longer Active Jillina Fralebron NORIEGA Active AMLODIPINE BESYLATE 5 MG TABS 1 tablet by mouth daily AMLODIPINE BESYLATE 68208519777 No Longer Active Jillina Fralebron FOOD AND BEVERAGE CASHIER Active AMITRIPTYLINE HCL 100 MG TAB one at hs AMITRIPTYLINE HCL 21637701652 No Longer Active Vishal Hui MD Active TRAZODONE HCL 100 MG TAB take 1 at bedtime TRAZODONE HCL 58729758046 No Longer Active Vishal Hui MD Active VYVANSE 40 MG CAPS 1 daily, LISDEXAMFETAMINE DIMESYLATE 28588522677 No Longer Active Vishal Hui MD Active IBUPROFEN 600 MG TAB 1 po TID PRN IBUPROFEN 03783463444 No Longer Active Vishal Hui MD Active PROZAC 20 MG CAP Take one by mouth daily FLUOXETINE HCL 62281604616 No Longer Active Vishal Hui MD Active BACTRIM DS 800-160 MG TABS 1 pill by mouth twice daily SULFAMETHOXAZOLE-TRIMETHOPRIM 48651733689 No Longer Active Sahara Rodriguez MD PhD Active DIFLUCAN 150 MG TAB 1 tablet by mouth daily FLUCONAZOLE 82626940556 No Longer Active Vishal Hui MD Active TIZANIDINE HCL 4 MG TABS 1 po q6hr PRN Muscle Spasm/Back Pain TIZANIDINE HCL 25971914177 Active TAMARA Casey Active CLINDAMYCIN HCL 150 MG CAPS 1 four times a day CLINDAMYCIN HCL 39369810875 No Longer Active Neeraj Collins MD Active KEFLEX 500 MG ORAL CAPS 1 cap QID by mouth CEPHALEXIN 49848710475 No Longer Active Neeraj Collins MD Active DIFLUCAN 150 MG TABS 1 pill every other day x 2 doses FLUCONAZOLE 88368178473 No Longer Active Sahara Rodriguez MD PhD Active MELATONIN 3 MG CAPS 2 po q hs MELATONIN 31199481577 No Longer Active Sahara Rodriguez MD PhD Active MULTIVITAMINS CAPS Take one by mouth daily MULTIPLE VITAMIN 81512062346 No Longer Active Sahara Rodriguez MD PhD Active BACTRIM DS 800-160 MG TAB 1 tab by mouth twice daily TRIMETHOPRIM-SULFAMETHOXAZOLE 57146026966 No Longer Active Sahara Rodriguez MD PhD Active [facility] PROBIOTIC ORAL CHEW 2 daily po PROBIOTIC PRODUCT 33037235316 No Longer Active Sahara Rodriguez MD PhD Active BACTRIM DS 800-160 MG TABS 1 po BID x 7 days SULFAMETHOXAZOLE-TRIMETHOPRIM 18714145762 No Longer Active Vishal Hui MD Active CHANTIX STARTING MONTH EARNEST 0.5 MG X 11 & 1 MG X 42 TABS 0.5mg daily for 3 days , then 0.5mg BID for 4 days, then 1mg BID VARENICLINE TARTRATE 04156023189 No Longer Active TAMARA Gray Active VERAPAMIL HCL CR 120 MG TAB CR 1 po bid VERAPAMIL HCL 77912141228 No Longer Active Vishal Hui MD Active METOPROLOL SUCCINATE 50 MG TB24 1 tablet by mouth daily METOPROLOL SUCCINATE 98620944919 No Longer Active Vishal Hui MD Active SAPHRIS 10 MG SUBL 1 tab po bid ASENAPINE MALEATE 05627817492 No Longer Active Vishal Hui MD Active LISINOPRIL 20 MG TABS 1 tab po qd LISINOPRIL 41250717731 No Longer Active Vishal Hui MD Active LATUDA 20 MG TABS Take one by mouth daily LURASIDONE HCL 49752430751 No Longer Active Vishal Hui MD Active TRAZODONE HCL 50 MG TABS 1/2 tab po qd prn for anxiety TRAZODONE HCL 06071770640 No Longer Active Vishal Hui MD Active OMEPRAZOLE 20 MG TBEC 1 po q a.m. 30min prior to first food intake OMEPRAZOLE 76672298761 Active TAMARA Casey Active RANITIDINE HCL 150 MG CAPS 1 twice a day RANITIDINE HCL 39790759890 Active Lynda Xiao LPN Active LINZESS 290 MCG CAPS Take one by mouth daily LINACLOTIDE 29138731080 No Longer Active Vishal Hui MD Active SAPHRIS 5 MG SUBL 1 tab po qd ASENAPINE MALEATE 09510688219 No Longer Active Vishal Hui MD Active ZALEPLON 10 MG CAPS 1 cap po every other night ZALEPLON 43619601525 No Longer Active Vishal Hui MD Active LYRICA 50 MG CAPS 1 tab po TID PREGABALIN 41285123723 No Longer Active Vishal Hui MD Active LORATADINE 10 MG TABS 1 tab po qd LORATADINE 35071650453 No Longer Active Vishal Hui MD Active VERAPAMIL HCL ER 180 MG CR-TABS 1 tab po bid VERAPAMIL HCL 68555974188 No Longer Active Vishal Hui MD Active MIRALAX POWD 1 capfull once daily POLYETHYLENE GLYCOL 3350 80735541472 No Longer Active Vishal Hui MD Active PREDNISONE 20 MG TABS 1 tab po qd PREDNISONE 93881004406 No Longer Active Renzo Thornton DO Active LEVOFLOXACIN 500 MG TABS 1 tab po qd LEVOFLOXACIN 40557434464 No Longer Active Renzo Thornton DO Active BUSPIRONE HCL 15 MG TABS 1 tab po TID BUSPIRONE HCL 28963993402 No Longer Active Renzo Thornton DO Active BENZTROPINE MESYLATE 1 MG TABS 1 tab po qd BENZTROPINE MESYLATE 27641066185 No Longer Active Renzo Thornton DO Active ATENOLOL 25 MG TABS 1 tab po qd ATENOLOL 74480787701 No Longer Active Renzo Thornton DO Active ESCITALOPRAM OXALATE 20 MG TABS 1 tab po qd ESCITALOPRAM OXALATE 96531633893 No Longer Active Renzo Thornton DO Active ADVAIR DISKUS 250-50 MCG/DOSE AEPB 1 puff BID FLUTICASONE-SALMETEROL 56584107854 No Longer Active Renzo Thornton DO Active PREDNISONE 20 MG TAB 2 tabs daily for 3 days, 1 tab daily for 3 days, 1/2 tab daily for 2 days PREDNISONE 16446832774 No Longer Active Vishal Hui MD Active CEFDINIR 300 MG CAPS by mouth twice a day CEFDINIR 45350878304 No Longer Active Vishal Hui MD Active LANSOPRAZOLE 30 MG CPDR 1 cap po qd LANSOPRAZOLE 78740618310 No Longer Active Vishal Hui MD Active BACLOFEN 20 MG TABS 1 tab po tid BACLOFEN 77745303372 No Longer Active Vishal Hui MD Active ADVAIR DISKUS 250-50 MCG/DOSE AEPB 1 puff BID ADVAIR DISKUS 250-50 MCG/DOSE AEPB FLUTICASONE-SALMETEROL Inactive ESCITALOPRAM OXALATE 20 MG TABS 1 tab po qd ESCITALOPRAM OXALATE 20 MG TABS 654929 ESCITALOPRAM OXALATE Inactive ATENOLOL 25 MG TABS 1 tab po qd ATENOLOL 25 MG TABS 810263 ATENOLOL Inactive BENZTROPINE MESYLATE 1 MG TABS 1 tab po qd BENZTROPINE MESYLATE 1 MG TABS 452030 BENZTROPINE MESYLATE Inactive BUSPIRONE HCL 15 MG TABS 1 tab po TID BUSPIRONE HCL 15 MG TABS 406009 BUSPIRONE HCL Inactive LEVOFLOXACIN 500 MG TABS 1 tab po qd LEVOFLOXACIN 500 MG TABS 624217 LEVOFLOXACIN Inactive PREDNISONE 20 MG TABS 1 tab po qd PREDNISONE 20 MG TABS 185191 PREDNISONE Inactive MIRALAX POWD 1 capfull once daily MIRALAX POWD 855167 POLYETHYLENE GLYCOL 3350 Inactive VERAPAMIL HCL ER 180 MG CR-TABS 1 tab po bid VERAPAMIL HCL ER 180 MG CR-TABS VERAPAMIL HCL Inactive LORATADINE 10 MG TABS 1 tab po qd LORATADINE 10 MG TABS 243758 LORATADINE Inactive LYRICA 50 MG CAPS 1 tab po TID LYRICA 50 MG CAPS PREGABALIN Inactive ZALEPLON 10 MG CAPS 1 cap po every other night ZALEPLON 10 MG CAPS 082769 ZALEPLON Inactive SAPHRIS 5 MG SUBL 1 tab po qd SAPHRIS 5 MG SUBL ASENAPINE MALEATE Inactive TRAZODONE HCL 50 MG TABS 1/2 tab po qd prn for anxiety TRAZODONE HCL 50 MG TABS 561435 TRAZODONE HCL Inactive LATUDA 20 MG TABS Take one by mouth daily LATUDA 20 MG TABS LURASIDONE HCL Inactive LISINOPRIL 20 MG TABS 1 tab po qd LISINOPRIL 20 MG TABS 758708 LISINOPRIL Inactive SAPHRIS 10 MG SUBL 1 [...] twice daily BACTRIM DS 800-160 MG TAB 441378 TRIMETHOPRIM-SULFAMETHOXAZOLE Inactive MULTIVITAMINS CAPS Take one by mouth daily MULTIVITAMINS CAPS MULTIPLE VITAMIN Inactive MELATONIN 3 MG CAPS 2 po q hs MELATONIN 3 MG CAPS 19950526 MELATONIN Inactive KEFLEX 500 MG ORAL CAPS 1 cap QID by mouth KEFLEX 500 MG ORAL CAPS 188431 CEPHALEXIN Inactive CLINDAMYCIN HCL 150 MG CAPS 1 four times a day CLINDAMYCIN HCL 150 MG CAPS 955999 CLINDAMYCIN HCL Inactive DIFLUCAN 150 MG TAB 1 tablet by mouth daily DIFLUCAN 150 MG TAB 588418 FLUCONAZOLE Inactive PROZAC 20 MG CAP Take one by mouth daily PROZAC 20 MG CAP 746188 FLUOXETINE HCL Inactive IBUPROFEN 600 MG TAB 1 po TID PRN IBUPROFEN 600 MG TAB 309741 IBUPROFEN Inactive VYVANSE 40 MG CAPS 1 daily, VYVANSE 40 MG CAPS LISDEXAMFETAMINE DIMESYLATE Inactive TRAZODONE HCL 100 MG TAB take 1 at bedtime TRAZODONE HCL 100 MG TAB 743422 TRAZODONE HCL Inactive AMITRIPTYLINE HCL 100 MG TAB one at hs AMITRIPTYLINE HCL 100 MG TAB 337007 AMITRIPTYLINE HCL Inactive AMLODIPINE BESYLATE 5 MG TABS 1 tablet by mouth daily AMLODIPINE BESYLATE 5 MG TABS 961259 AMLODIPINE BESYLATE Inactive LATUDA 80 MG TABS Take one by mouth daily LATUDA 80 MG TABS LURASIDONE HCL Inactive SAPHRIS 5 MG SUBL 1 po bid SAPHRIS 5 MG SUBL ASENAPINE MALEATE Inactive PREDNISONE 20 MG TAB 2 tabs daily for 4 days, 1 tab daily for 4 days, 1/2 tab daily for 4 days PREDNISONE 20 MG TAB 765929 PREDNISONE Inactive AMBIEN 5 MG ORAL TABS 1 tab at bedtime AMBIEN 5 MG ORAL TABS 954793 ZOLPIDEM TARTRATE Inactive PROZAC 20 MG ORAL CAPS 1 tab daily PROZAC 20 MG ORAL CAPS 421514 FLUOXETINE HCL Inactive ABILIFY 15 MG ORAL TABS 1 tab daily ABILIFY 15 MG ORAL TABS 255023 ARIPIPRAZOLE Inactive METOPROLOL TARTRATE 50 MG TAB 1 po bid METOPROLOL TARTRATE 50 MG TAB 224601 METOPROLOL TARTRATE Inactive TRAMADOL HCL 50 MG TABS 1-2 po TID PRN Pain TRAMADOL HCL 50 MG TABS 472963 TRAMADOL HCL Inactive PIROXICAM 20 MG CAPS 1 cap po qd PRN Pain PIROXICAM 20 MG CAPS 733448 PIROXICAM Inactive MINIPRESS 2 MG CAPS 4 cap po at night MINIPRESS 2 MG CAPS 877928 PRAZOSIN HCL Inactive MIRALAX PACK 1 po qd PRN Constipation MIRALAX PACK 110927 POLYETHYLENE GLYCOL 3350 Inactive METOPROLOL TARTRATE 25 MG ORAL TABS 1/2 tablet twice daily for heart rate and blood pressure METOPROLOL TARTRATE 25 MG ORAL TABS 432349 METOPROLOL TARTRATE Inactive VALIUM 5 MG TAB Take 1-2 tablets daily VALIUM 5 MG TAB 843950 DIAZEPAM Inactive FLAGYL 500 MG TAB 1 tablet by mouth bid FLAGYL 500 MG TAB 572134 METRONIDAZOLE Inactive DICLOFENAC POTASSIUM TABS Take 1 tablet twice a day (pt. is not sure of the dose.) DICLOFENAC POTASSIUM TABS DICLOFENAC POTASSIUM TABS Inactive ZITHROMAX Z-EARNEST 250 MG TABS 2 today and then 1 daily for 4 days ZITHROMAX Z-EARNEST 250 MG TABS 0795139 AZITHROMYCIN Inactive PREDNISONE 20 MG TABS 2 daily for 5 days then 1 daily for 5 days PREDNISONE 20 MG TABS 238799 PREDNISONE Inactive PROAIR HFA 108 (90 BASE) MCG/ACT AERS 2 puffs four times a day as needed 2015 PROAIR HFA 108 (90 BASE) MCG/ACT AERS ALBUTEROL SULFATE Inactive HYDROCODONE-ACETAMINOPHEN 5-325 MG TABS 1 to 2 four times a day as needed for pain use until can be seen by specialist HYDROCODONE- ACETAMINOPHEN 5-325 MG TABS 870066 HYDROCODONE-ACETAMINOPHEN Inactive TESSALON PERLES 100 MG CAP 1 to 2 tablets by mouth 3 times daily as needed for cough TESSALON PERLES 100 MG CAP 255793 BENZONATATE Inactive CHANTIX STARTING MONTH EARNEST 0.5 [...] Pain 2015 DICLOFENAC SODIUM 50 MG TBEC 702534 DICLOFENAC SODIUM Inactive TOPAMAX 50 MG ORAL TABS 1 tab twice daily TOPAMAX 50 MG ORAL TABS 659218 TOPIRAMATE Inactive VIIBRYD 10 MG ORAL TABS Take 1 tablet once a day VIIBRYD 10 MG ORAL TABS VILAZODONE HCL Inactive LEVOFLOXACIN 500 MG ORAL TABS po daily LEVOFLOXACIN 500 MG ORAL TABS 326342 LEVOFLOXACIN Inactive METHYLPREDNISOLONE 4 MG ORAL TABS po daily METHYLPREDNISOLONE 4 MG ORAL TABS 260697 METHYLPREDNISOLONE Inactive OXYCODONE HCL ER 10 MG ORAL T12A 1/2 tab by mouth every 4 hours prn OXYCODONE HCL ER 10 MG ORAL T12A OXYCODONE HCL Inactive FLAGYL 500 MG TAB 1 tablet by mouth bid FLAGYL 500 MG TAB 043627 METRONIDAZOLE Inactive MONISTAT 7 COMBO PACK WOODROW 100 & 2 MG-% (9GM) VAG KIT 1 applicatorful per vagina q pm x 7 MONISTAT 7 COMBO PACK WOODROW 100 & 2 MG-% (9GM) VAG KIT MICONAZOLE NITRATE Inactive BACTRIM DS 800-160 MG TABS 1 twice a day BACTRIM DS 800-160 MG TABS 324347 SULFAMETHOXAZOLE-TRIMETHOPRIM Inactive TRAMADOL HCL 50 MG TABS 1/2-1 tab TID PRN TRAMADOL HCL 50 MG TABS 270058 TRAMADOL HCL Inactive ABILIFY MAINTENA 400 MG IM SUSR 400mg injection every 26 days ABILIFY MAINTENA 400 MG IM SUSR ARIPIPRAZOLE Inactive KLONOPIN 1 MG ORAL TABS 1 tab po TID KLONOPIN 1 MG ORAL TABS 709110 CLONAZEPAM Inactive ADVAIR DISKUS 250-50 MCG/DOSE INH AEPB 1 puff twice a day for asthma ADVAIR DISKUS 250-50 MCG/DOSE INH AEPB FLUTICASONE- SALMETEROL Inactive BENADRYL 25 MG CAP 4 po at bedtime for insomnia BENADRYL 25 MG CAP DIPHENHYDRAMINE HCL Inactive PREDNISONE 20 MG TABS 2 daily for 5 days then 1 daily for 5 days PREDNISONE 20 MG TABS 273442 PREDNISONE Inactive HYDROCODONE-ACETAMINOPHEN 5-325 MG ORAL TABS 1 tab two times a day HYDROCODONE-ACETAMINOPHEN 5-325 MG ORAL TABS 508722 HYDROCODONE-ACETAMINOPHEN Inactive ZITHROMAX Z-EARNEST 250 MG TABS 2 today and then 1 daily for 4 days ZITHROMAX Z-EARNEST 250 MG TABS [id number] AZITHROMYCIN Inactive GUAIFENESIN-CODEINE 100-10 MG/5ML SYRP 5ml every 4 to 6 hours as needed for cough GUAIFENESIN-CODEINE 100-10 MG/5ML SYRP [id number] GUAIFENESIN-CODEINE Inactive HALOPERIDOL 10 MG ORAL TABS 1 tab q.d HALOPERIDOL 10 MG ORAL TABS [id number] HALOPERIDOL Inactive ASPIRIN 325 MG ORAL TABS 1 tab q.d ASPIRIN 325 MG ORAL TABS [id number] ASPIRIN Inactive FLUTICASONE PROPIONATE 50 MCG/ACT SUSP 2 sprays each nostril daily before bed. FLUTICASONE PROPIONATE 50 MCG/ACT SUSP [id number] FLUTICASONE PROPIONATE Inactive ZOFRAN 4 MG TABS 1 po q6hr PRN Nausea ZOFRAN 4 MG TABS [id number] ONDANSETRON HCL Inactive KEFLEX 500 MG CAP 1 po qid KEFLEX 500 MG CAP 861150 CEPHALEXIN Inactive ACETAMINOPHEN-CODEINE 120-12 MG/5ML SOLN 5 ml by mouth every 4-6 hours if needed for cough ACETAMINOPHEN-CODEINE 120-12 MG/5ML SOLN 705122 ACETAMINOPHEN-CODEINE Inactive PREDNISONE 20 MG TAB 1 tablet daily x 4 days PREDNISONE 20 MG TAB 131324 PREDNISONE Inactive TROPICAMIDE 0.5 % OPHTH SOLN 1 drop PRN eye spasms TROPICAMIDE 0.5 % OPHTH SOLN 249397 TROPICAMIDE Inactive LEVAQUIN 500 MG TABS 1 daily for infection LEVAQUIN 500 MG TABS 088509 LEVOFLOXACIN Inactive PREDNISONE 10 MG TABS 2 daily for 5 days then 1 daily for 5 days PREDNISONE 10 MG TABS 283994 PREDNISONE Inactive EQ NICOTINE 21 MG/24HR TRANS [...] for cough TESSALON PERLES 100 MG CAPS 612553 BENZONATATE Inactive AMITIZA 8 MCG ORAL CAPS 1 tab BID AMITIZA 8 MCG ORAL CAPS LUBIPROSTONE Inactive LINZESS 290 MCG ORAL CAPS 1 tab 30 min prior to first meal each day. LINZESS 290 MCG ORAL CAPS LINACLOTIDE Inactive DIFLUCAN 150 MG TABS 1 by mouth for yeast DIFLUCAN 150 MG TABS 300043 FLUCONAZOLE Inactive BACTRIM DS 800-160 MG TABS 1 twice a day BACTRIM DS 800-160 MG TABS 19820521 SULFAMETHOXAZOLE-TRIMETHOPRIM Inactive MUPIROCIN 2 % OINT apply twice a day MUPIROCIN 2 % OINT 574076 MUPIROCIN Inactive BACTRIM DS 800-160 MG TAB Take one (1) tablet by mouth twice a day for 5 days BACTRIM DS 800-160 MG TAB 19820521 TRIMETHOPRIM- SULFAMETHOXAZOLE Inactive LACTULOSE 10 GM/15ML ORAL SOLN 30mL oral BID for IBS-C LACTULOSE 10 GM/15ML ORAL SOLN 122315 LACTULOSE Inactive MIRALAX ORAL POWD 17GMS DAILY IN WATER MIRALAX ORAL POWD 798909 POLYETHYLENE GLYCOL 3350 Inactive BACTRIM DS 800-160 MG TABS 1 twice a day BACTRIM DS 800-160 MG TABS 19820521 SULFAMETHOXAZOLE-TRIMETHOPRIM Inactive NYSTATIN 956643 UNIT/GM CREA apply three times a day to yeast rash NYSTATIN 256332 UNIT/GM CREA 577745 NYSTATIN Inactive CEFDINIR 300 MG CAPS by mouth twice a day CEFDINIR 300 MG CAPS 532580 CEFDINIR Inactive PREDNISONE 20 MG TAB 2 tabs daily for 3 days, 1 tab daily for 3 days, 1/2 tab daily for 2 days PREDNISONE 20 MG TAB 364005 PREDNISONE Inactive BACTRIM DS 800-160 MG TABS 1 po BID x 7 days BACTRIM DS 800-160 MG TABS 19820521 SULFAMETHOXAZOLE-TRIMETHOPRIM Inactive DIFLUCAN 150 MG TABS 1 pill every other day x 2 doses DIFLUCAN 150 MG TABS 558776 FLUCONAZOLE Inactive BACTRIM DS 800-160 MG TABS 1 pill by mouth twice daily BACTRIM DS 800-160 MG TABS 19820521 SULFAMETHOXAZOLE-TRIMETHOPRIM Inactive KEFLEX 500 MG CAP 1 po TID x 10 days KEFLEX 500 MG CAP 423736 CEPHALEXIN Inactive Advance Directives Directive Description Start [...] % 11.0-15.0 platelet count 443 THOUSAND/UL 10*3/mm3 203-170 9529/03/01 mean platelet volume 8.2 fL 7.5-12.5 leukocyte [...] % 11.0-15.0 platelet count 349 THOUSAND/UL 10*3/mm3 467-540 2419/04/12 mean platelet volume 8.4 fL 7.5-12.5 Lab Report: CBC W/DIFF, Comp. Metabolic Panel, HGBA1C, Magnesium - Chemistry sodium, serum 141 mmol/L 071-651 0675/07/24 carbon dioxide, venous blood 27.8 mmol/L 21.0-32.0 [...] 369 10^3/MM^3 10*3/mm3 142-424 Lab Report: Chlamydia/GC APTIMA/57269 - Lab chlamydia DNA probe NOT DETECTED NOT DETECTED Lab Report: Chlamydia/GC APTIMA/55610 - Microbiology Neisseria gonorrhoeae DNA probe NOT DETECTED NOT DETECTED Lab Report: Chlamydia/GC APTIMA/14928, Urinalysis, Complete, with Reflex ... - Lab chlamydia DNA probe NOT DETECTED NOT DETECTED Lab Report: Chlamydia/GC APTIMA/61610, Urinalysis, Complete, with Reflex ... - Microbiology Neisseria gonorrhoeae DNA probe NOT DETECTED NOT DETECTED Lab Report: Chlamydia/GC APTIMA/01580, Urinalysis, Complete, with Reflex ... - Urinalysis microalbumin/total urine volume 2 mg/L Units converted. See lab report for original value. microalbumin/creatinine ratio, urine 9 MCG/MG CREAT mg/L <30 Lab Report: Comp. Metabolic Panel - Chemistry sodium, serum 140 mmol/L 132-057 8727/06/28 carbon dioxide, venous blood 23.8 mmol/L 21.0-32.0 [...] negative Encounters Code Encounter Date Provider Facility CPT-77498 Level 5 Est. Patient 12:01:37 CDT Maude Miranda [facility] CPT-24440 Level 3 Est. [facility] 11:36[facility] 10:53[facility]17 [facility] Level 3 Est. Patient 11:08:35 [facility] Level 3 Est. Patient 15:55:20 CDT Suzan Boo [facility] CPT-43164 Level 4 Est. Patient 10:49:34 CDT Suzan Boo [facility] CPT-49303 Level 3 Est. [facility] 10:00:[facility] Level 3 Est. Patient 10:29:30 CDT Suzan Boo [facility] CPT-34177 Level 3 Est. Patient 11:04:38 CDT Renzo Thornton [facility]-38857 Level 3 Est. Patient 11:15:58 BULL DRIVER Renzo Thornton [facility]-18814 Level 3 Est. Patient 15:28:23 BULL DRIVER Suzan Boo [id number] Level 4 Est. Patient 10:20:54 BULL DRIVER Suzan Boo [facility] CPT-47498 Level 3 Est. Patient 11:47:37 BULL DRIVER Ahmet Carbajal MD [facility]-71341 Level 3 Est. Patient 10:40:11 BULL DRIVER Ahmet Carbajal MD [facility] CPT-79793 Level 3 Est. Patient 15:07:06 BULL DRIVER Neeraj Collins MD [facility] CPT-37492 Level 4 Est. Patient 14:45:00 BULL DRIVER Ahmet Carbajal MD [facility]-69133 Level 3 Est. Patient 13:59:59 CDT Luigi Martínez [facility] CPT-07494 Level 3 Est. Patient 18:18:53 CDT Neeraj Collins MD [facility] CPT-61436 Level 3 Est. Patient 15:50:44 CDT Vishal Hui MD [facility]-68751 Level 3 Est. Patient 11:36:17 CDT Ahmet Carbajal MD [facility] CPT-22667 Level 3 Est. Patient 13:29:16 CDT Vishal Hui MD [facility] CPT-59573 Level 3 Est. Patient 14:27:52 CDT Neeraj Collins MD [facility] CPT-67652 Level 3 Est. Patient 08:56:03 CDT Luigi Martínez [facility] CPT-25411 Level 4 Est. Patient 12:11:48 CDT Fabiola Johnson [facility] CPT-17524 Level 3 New Patient 16:53:37 CDT Albert Caldera MD [facility] CPT-13021 Level 3 Est. Patient 11:25:49 CDT Renzo Thornton DO [facility] CPT-77637 Level 3 Est. Patient 15:22:01 CDT Ahmet Carbajal MD [facility] CPT-08932 Level 4 Est. Patient 09:00:51 BULL DRIVER Vishal Hui MD [facility] CPT-47718 Level 3 Est. Patient 11:37:33 BULL DRIVER Vishal Hui MD [facility] CPT-90055 Level 3 Est. Patient 08:41:09 BULL DRIVER Vishal Hui MD [facility] CPT-32057 Level 4 Est. Patient 10:19:35 BULL DRIVER Vishal Hui MD [facility] CPT-10123 Level 3 Est. Patient 13:35:45 CDT Vishal Hui MD [facility] CPT-44575 Level 4 Est. Patient 10:08:37 CDT Vishal Hui MD [facility] CPT-24582 Level 3 Est. Patient 11:22:10 CDT Vishal Hui MD [facility] CPT-58660 Level 3 Est. Patient 11:03:32 CDT Sahara Rodriguez MD, PhD [facility] CPT-67912 Level 3 Est. Patient 09:41:35 CDT Vishal Hui MD [facility] CPT-23931 Level 3 Est. Patient 12:00:41 CDT Neeraj Collins MD [facility] CPT-10254 Level 3 Est. Patient 09:16:24 CDT Vishal Hui MD [facility] CPT-64661 Level 4 Est. Patient 13:59:09 CDT Neeraj Collins MD [facility] CPT-37163 Level 3 Est. Patient 15:19:43 CDT Renzo Thornton DO [facility] CPT-45677 Level 3 Est. Patient 18:10:26 CDT Sahara Rodriguez MD [facility]-47029 Level 3 Est. Patient 14:49:50 CDT Vishal Hui MD [facility] CPT-00973 Level 4 Est. Patient 18:41:46 CDT Neeraj Collins MD [facility] CPT-55382 Level 4 Est. Patient 09:18:38 BULL DRIVER Vishal Hui MD [facility] CPT-38363 Level 3 Est. Patient 14:43:55 BULL DRIVER Vishal Hui MD [facility] CPT-28755 Level 3 Est. Patient 15:26:33 BULL DRIVER Sahara Rodriguez MD PhD [facility] CPT-55941 Level 3 Est. Patient 10:32:14 BULL DRIVER Vishal Hui MD [facility] CPT-41764 Level 3 Est. Patient 15:12:52 BULL DRIVER Vishal Hui MD [facility] CPT-28954 Level 4 Est. Patient 09:19:27 CDT Vishal Hui MD [facility] CPT-68722 Level 3 Est. Patient 15:53:00 CDT Renzo Thornton DO [facility] CPT-27458 Level 3 Est. Patient 15:50:30 CDT Renzo Thornton DO [facility] CPT-17156 Level 3 Est. Patient 16:55:24 CDT Vishal Hui MD [facility] Procedures Code Procedure Name Date Entry Date Standard Description CPT-94421 UA Dip Auto (Floor Use Only) 11:36:47 CDT CPT-80188 Venipuncture Draw Fee 10:53:17 CDT CPT-75128 EKG Trac and Interp - XRAY USE ONLY 15:59:30 CDT 09/13 CPT-48342 Chest 1V Frontal - XRAY USE ONLY 15:59:30 CDT CPT-93644 Venipuncture Draw Fee 15:44:02 CDT CPT-32497 Venipuncture Draw Fee 08:41:12 CDT CPT-27383 Abd compl w upright - XRAY USE ONLY 10:27:59 CDT 06/28 CPT-26544 Smoking Cessation counseling 11:15:58 BULL DRIVER CPT-G0439 [facility] Annual Wellness Exam 09:30:58 BULL DRIVER CPT-91407 TSH - LAB USE ONLY 08:50:26 BULL DRIVER CPT-34553 CBC - LAB USE ONLY 08:50:26 BULL DRIVER CPT-89952 Venipuncture Draw Fee 08:50:26 BULL DRIVER CPT-37755 Abx/Therapy Injection 17:34:30 BULL DRIVER CPT-90015 Nexplanon Removal with Reinsertion 14:09:32 CDT CPT-J7307 Nexplanon (Implant) 14:09:32 CDT CPT-OV Office Visit 14:09:32 CDT CPT-59261 UA w micro - LAB USE ONLY 16:21:13 CDT CPT-68103 Wet Mount - LAB USE ONLY 16:21:13 CDT CPT-26408 First Vx - Ix admin for Medicare patients 14:37:47 CDT CPT-19129 Fluzone Preservative Free Intramuscular Suspension 14:37 :47 CDT CPT-85894 Abx/Therapy Injection 13:54:22 CDT CPT-79203 Abx/Therapy Injection 08:47:09 CDT CPT-78858 Abx/Therapy Injection 13:29:56 CDT CPT-30868 Abx/Therapy Injection 08:36:16 CDT CPT-01110 Wet Mount - LAB USE ONLY 17:44:58 CDT CPT-82011 UA w micro - LAB USE ONLY 17:44:58 CDT CPT-48056 CMP - LAB USE ONLY 17:44:58 CDT CPT-07754 Venipuncture Draw Fee 17:44:58 CDT CPT-23965 Cervical Min 4V - XRAY USE ONLY 09:01:40 CDT CPT-14490 Chest 2V Frontal and Lat - XRAY USE ONLY 11:06:31 CDT CPT-84979 EKG Trac and Interp - XRAY USE ONLY 11:31:43 CDT 08/26 CPT-J3420 Vitamin B12 1000mcg (Cyanocobalamin) 08:10:26 BULL DRIVER 04/12 CPT-13953 Abx/Therapy Injection 08:10:26 BULL DRIVER CPT-G0438 Initial Annual Wellness Exam 19:01:01 BULL DRIVER CPT-J3420 Vitamin B12 1000mcg (Cyanocobalamin) 16:57:46 CDT 08/14 CPT-27539 Recombivax HB Injection Suspension 5 MCG/0.5ML 08:37:50 BULL DRIVER CPT-67983 Immunization Single Admin 08:37:50 BULL DRIVER CPT-J3420 Vitamin B12 1000mcg (Cyanocobalamin) 08:32:16 BULL DRIVER 03/11 CPT-51150 Abx/Therapy Injection 08:32:16 BULL DRIVER CPT-77277 Chest 2V Frontal and Lat 11:46:38 BULL DRIVER CPT-71072 Venipuncture Draw Fee 09:12:45 BULL DRIVER CPT-J3420 Vitamin B12 1000mcg (Cyanocobalamin) 08:50:15 BULL DRIVER 02/08 CPT-11186 Abx/Therapy Injection 08:50:15 BULL DRIVER CPT-Cryo Cryotherapy 10:19:35 BULL DRIVER CPT-000 Give Appropriate Flu Vaccine 09:22:16 CDT CPT-J3420 Vitamin B12 1000mcg (Cyanocobalamin) 19:08:57 CDT 01/11 CPT-13294 Abx/Therapy Injection 19:08:57 CDT CPT-J3420 Vitamin B12 1000mcg (Cyanocobalamin) 08:19:08 CDT 12/11 CPT-73946 Abx/Therapy Injection 08:19:08 CDT CPT-J3420 Vitamin B12 1000mcg (Cyanocobalamin) 14:48:00 CDT 11/09 CPT-92964 Abx/Therapy Injection 14:47:59 CDT CPT-J3420 Vitamin B12 1000mcg (Cyanocobalamin) 08:34:04 CDT 10/09 CPT-18370 Abx/Therapy Injection 08:34:04 CDT CPT-J3420 Vitamin B12 1000mcg (Cyanocobalamin) 09:18:52 CDT 09/11 CPT-19144 Abx/Therapy Injection 09:18:52 CDT CPT-J3420 Vitamin B12 1000mcg (Cyanocobalamin) 08:35:44 CDT 09/04 CPT-11543 Abx/Therapy Injection 08:35:44 CDT CPT-93945 Immunization Single Admin 11:07:16 CDT CPT-55405 Hepatitis B adult IM 11:07:16 CDT CPT-J3420 Vitamin B12 1000mcg (Cyanocobalamin) 11:00:49 CDT 08/28 CPT-J1040 Depo Medrol 80 mg (Methyl Prednisolone Acetate) 11:00: 49 CDT CPT-93047 Abx/Therapy Injection 11:00:49 CDT CPT-J1040 Depo Medrol 80 mg (Methyl Prednisolone Acetate) 09:16: 23 CDT CPT-J3420 Vitamin B12 1000mcg (Cyanocobalamin) 08:27:05 CDT 08/20 CPT-17358 Abx/Therapy Injection 08:27:05 CDT CPT-91142 Recombivax HB Injection Suspension 5 MCG/0.5ML 10:00:41 CDT CPT-13554 Administration single or combination vaccine inc oral 10 :00:41 CDT CPT-02962 Sono transvag pelvis non OB uterus ovaries cervix 16:36: 57 CDT CPT-74123 LS spine comp w obliq 09:50:55 BULL DRIVER CPT-23276 Abd compl w upright 09:50:55 BULL DRIVER CPT-J1100 Decadron 4mg (Dexamethasone) 15:51:24 BULL DRIVER CPT-J1030 Depo Medrol 40 mg (Methyl Prednisolone Acetate) 15:51: 24 BULL DRIVER CPT-58485 Abx/Therapy Injection 15:51:24 BULL DRIVER CPT-J1100 Decadron 4mg (Dexamethasone) 15:26:33 BULL DRIVER CPT-J1030 Depo Medrol 40 mg (Methyl Prednisolone Acetate) 15:26: 33 BULL DRIVER CPT-12872 Sono retroperitoneal complete kidneys and bladder 17:15: 30 CDT CPT-25619 Abd compl w upright 16:09:25 CDT CPT-J1100 Decadron 8mg (Dexamethasone) 17:07:57 CDT CPT-67180 Abx/Therapy Injection 17:07:57 CDT CPT-J1100 Decadron 8mg (Dexamethasone) 16:55:24 CDT CPT-39659 Chest 2V Frontal and Lat 16:32:44 CDT
--- OUTSIDE RECORDS SUMMARY | 2016-11-04 15:49 | XMS REPORT | Clinical Summary ---
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 Juliet Kimbrough MOLDING SUPERVISOR Dependence on other enabling machines and [...] breath Nocturnal hypoxia 799.02 Active Fabiola Johnson MOLDING SUPERVISOR Hypoxemia Neck pain 723.1 Resolved Vishal [...] Acute upper respiratory infections of unspecified site Anxiety Disorder ICD-300.00 Inactive Vishal Hui MD Pneumonia, organism unspecified ICD-486 Inactive Vishal Hui MD Flank pain, right ICD-789.09 Inactive Vishal Hui MD G E R D ICD-530.81 Inactive Vishal Hiu MD Smoker/tobacco use disorder-smoking cessation discussed ICD-305.1 [...] ICD-599.0 Jim Hui MD Headache, atypical ICD-784.0 Inactive Albert [...] in 2 hours if needed SUMATRIPTAN SUCCINATE 39244888435 Active Vishal Hui MD Active OXYCODONE HCL ER 10 MG ORAL T12A 1/2 tab by mouth every 4 hours prn OXYCODONE HCL 35658688493 Active Neeraj Collins MD Active TESSALON PERLES 100 MG CAP 1 to 2 tablets by mouth 3 times daily as needed for cough BENZONATATE 66474457159 Active Vishal Hui MD Active METHYLPREDNISOLONE 4 MG ORAL TABS po daily METHYLPREDNISOLONE 06297772042 Active Vishal Hui MD Active LEVOFLOXACIN 500 MG ORAL TABS po daily LEVOFLOXACIN 52138232015 Active Vishal Hui MD Active CHANTIX STARTING MONTH EARNEST 0.5 MG X 11 & 1 MG X 42 TABS take as directed 2015 VARENICLINE TARTRATE 85985393993 Active Ahmet Carbajal MD Active CHANTIX 1 MG TABS 1 twice a day to help quit smoking VARENICLINE TARTRATE 29781098131 Active Ahmet Carbajal MD Active HYDROCODONE-ACETAMINOPHEN 5-325 MG TABS 1 to 2 four times a day as needed for pain use until can be seen by specialist HYDROCODONE- ACETAMINOPHEN 59090763829 No Longer Active Vishal Hui MD Active PROAIR HFA 108 (90 BASE) MCG/ACT AERS 2 puffs four times a day as needed 2015 ALBUTEROL SULFATE 10156404810 No Longer Active Vishal Hui MD Active PREDNISONE 20 MG TABS 2 daily for 5 days then 1 daily for 5 days PREDNISONE 61317115769 No Longer Active Vishal Hui MD Active ZITHROMAX Z-EARNEST 250 MG TABS 2 today and then 1 daily for 4 days AZITHROMYCIN 11078131182 No Longer Active Vishal Hui MD Active DICLOFENAC SODIUM 50 MG TBEC 1 tablet by mouth four times daily PRN Pain 2015 DICLOFENAC SODIUM 17960162804 Active Vishal Hui MD Active DICLOFENAC POTASSIUM TABS Take 1 tablet twice a day (pt. is not sure of the dose.) DICLOFENAC POTASSIUM TABS 94503304679 No Longer Active Vishal Hui MD Active VERAPAMIL HCL ER 120 MG ORAL CR-TABS Take 1 tablet by mouth twice a day. VERAPAMIL HCL 14418441327 Active Vishal Hui MD Active FLAGYL 500 MG TAB 1 tablet by mouth bid METRONIDAZOLE 37316686933 No Longer Active Vishal Hui MD Active ABILIFY MAINTENA 400 MG IM SUSR 400mg injection every 28 days ARIPIPRAZOLE 06348652314 Active Silvia Wilian Casey LPN Active FLUTICASONE PROPIONATE 50 MCG/ACT SUSP 2 sprays each nostril daily before bed. FLUTICASONE PROPIONATE 52457280416 Active Fabiola Johnson APRN Active ADZENYS XR-ODT 6.3 MG ORAL TBED 1 tab po daily for ADHD AMPHETAMINE 45644480246 Active Fabiola Johnson APRN Active BENADRYL 25 MG CAP 4 po at bedtime for insomnia DIPHENHYDRAMINE HCL 74307788610 Active Fabiola Johnson APRN Active KLONOPIN 1 MG ORAL TABS 1 tab po TID CLONAZEPAM 57317275291 Active Fabiola Johnson APRN Active VALIUM 5 MG TAB Take 1-2 tablets daily DIAZEPAM 34033437570 No Longer Active Fabiola Johnson APRN Active METOPROLOL TARTRATE 25 MG ORAL TABS 1/2 tablet twice daily for heart rate and blood pressure METOPROLOL TARTRATE 62922468020 No Longer Active Fabiola Johnson APRN Active MIRALAX ORAL POWD 17GMS DAILY IN WATER POLYETHYLENE GLYCOL 3350 68120538751 Active Vishal Hui MD Active VIIBRYD 10 MG ORAL TABS Take 1 tablet once a day VILAZODONE HCL 31223915592 Active Ahmet Carbajal MD Active MIRALAX PACK 1 po qd PRN Constipation POLYETHYLENE GLYCOL 3350 46582312477 No Longer Active Ahmet Carbajal MD Active MINIPRESS 2 MG CAPS 4 cap po at night PRAZOSIN HCL 96967326992 No Longer Active hAmet Carbajal MD Active PIROXICAM 20 MG CAPS 1 cap po qd PRN Pain PIROXICAM 90051711115 No Longer Active Ahmet Carbajal MD Active TRAMADOL HCL 50 MG TABS 1-2 po TID PRN Pain TRAMADOL HCL 18036386315 No Longer Active Ahmet Carbajal MD Active METOPROLOL TARTRATE 50 MG TAB 1 po bid METOPROLOL TARTRATE 06385563069 No Longer Active Ahmet Carbajal MD Active ABILIFY 15 MG ORAL TABS 1 tab daily ARIPIPRAZOLE 88052356918 No Longer Active Ahmet Carbajal MD Active PROZAC 20 MG ORAL CAPS 1 tab daily FLUOXETINE HCL 44502741405 No Longer Active Ahmet Carbajal MD Active AMBIEN 5 MG ORAL TABS 1 tab at bedtime ZOLPIDEM TARTRATE 21424726190 No Longer Active Ahmet Carbajal MD Active PREDNISONE 20 MG TAB 2 tabs daily for 4 days, 1 tab daily for 4 days, 1/2 tab daily for 4 days PREDNISONE 00868144209 No Longer Active Ahmet Carbajal MD Active KEFLEX 500 MG CAP 1 po TID x 10 days CEPHALEXIN 07725647669 No Longer Active Vishal Hui MD Active TOPAMAX 50 MG ORAL TABS 1 tab twice daily TOPIRAMATE 39745360731 Active Vishal Hui MD Active SAPHRIS 5 MG SUBL 1 po bid ASENAPINE MALEATE 02751506412 No Longer Active Luigi Martínez APRN Active LATUDA 80 MG TABS Take one by mouth daily LURASIDONE HCL 06591449595 No Longer Active Jillina Mauricio MOLDING SUPERVISOR Active AMLODIPINE BESYLATE 5 MG TABS 1 tablet by mouth daily AMLODIPINE BESYLATE 56132871871 No Longer Active Jillina Fralebron MOLDING SUPERVISOR Active AMITRIPTYLINE HCL 100 MG TAB one at hs AMITRIPTYLINE HCL 33131646214 No Longer Active Vishal Hui MD Active TRAZODONE HCL 100 MG TAB take 1 at bedtime TRAZODONE HCL 78864545643 No Longer Active Vishal Hui MD Active VYVANSE 40 MG CAPS 1 daily, LISDEXAMFETAMINE DIMESYLATE 90322722133 No Longer Active Vishal Hui MD Active IBUPROFEN 600 MG TAB 1 po TID PRN IBUPROFEN 69256671595 No Longer Active Vishal Hui MD Active PROZAC 20 MG CAP Take one by mouth daily FLUOXETINE HCL 21946676391 No Longer Active Vishal Hui MD Active ZOFRAN 4 MG TABS 1 po q6hr PRN Nausea ONDANSETRON HCL Active Vishal Hui MD Active BACTRIM DS 800-160 MG TABS 1 pill by mouth twice daily SULFAMETHOXAZOLE-TRIMETHOPRIM 06884860197 No Longer Active Sahara Rodriguez MD PhD Active DIFLUCAN 150 MG TAB 1 tablet by mouth daily FLUCONAZOLE 68944272960 No Longer Active Vishal Hui MD Active TIZANIDINE HCL 4 MG TABS 1 po q6hr PRN Muscle Spasm/Back Pain TIZANIDINE HCL 63725862208 Active Vishal Hui MD Active CLINDAMYCIN HCL 150 MG CAPS 1 four times a day CLINDAMYCIN HCL 17020245840 No Longer Active Neeraj Collins MD Active KEFLEX 500 MG ORAL CAPS 1 cap QID by mouth CEPHALEXIN 03094640799 No Longer Active Neeraj Collins MD Active DIFLUCAN 150 MG TABS 1 pill every other day x 2 doses FLUCONAZOLE 74146710718 No Longer Active Sahara Rodriguez MD PhD Active MELATONIN 3 MG CAPS 2 po q hs MELATONIN 61461811321 No Longer Active Sahara Rodriguez MD PhD Active MULTIVITAMINS CAPS Take one by mouth daily MULTIPLE VITAMIN 16915970328 No Longer Active Sahara Rodriguez MD PhD Active BACTRIM DS 800-160 MG TAB 1 tab by mouth twice daily TRIMETHOPRIM-SULFAMETHOXAZOLE 84747902116 No Longer Active Sahara Rodriguez MD PhD Active [facility] PROBIOTIC ORAL CHEW 2 daily po PROBIOTIC PRODUCT 94327384064 No Longer Active Sahara Rodriguez MD PhD Active BACTRIM DS 800-160 MG TABS 1 po BID x 7 days SULFAMETHOXAZOLE-TRIMETHOPRIM 02074758392 No Longer Active Vishal Hui MD Active CHANTIX STARTING MONTH EARNEST 0.5 MG X 11 & 1 MG X 42 TABS 0.5mg daily for 3 days , then 0.5mg BID for 4 days, then 1mg BID VARENICLINE TARTRATE 46464018353 No Longer Active TAMARA Gray Active VERAPAMIL HCL CR 120 MG TAB CR 1 po bid VERAPAMIL HCL 33935109198 No Longer Active Vishal Hui MD Active METOPROLOL SUCCINATE 50 MG TB24 1 tablet by mouth daily METOPROLOL SUCCINATE 84306543471 No Longer Active Vishal Hui MD Active SAPHRIS 10 MG SUBL 1 tab po bid ASENAPINE MALEATE 19885653375 No Longer Active Vishal Hui MD Active LISINOPRIL 20 MG TABS 1 tab po qd LISINOPRIL 70187151033 No Longer Active Vishal Hui MD Active LATUDA 20 MG TABS Take one by mouth daily LURASIDONE HCL 30356036446 No Longer Active Vishal Hui MD Active TRAZODONE HCL 50 MG TABS 1/2 tab po qd prn for anxiety TRAZODONE HCL 69680078000 No Longer Active Vishal Hui MD Active OMEPRAZOLE 20 MG TBEC 1 po q a.m. 30min prior to first food intake OMEPRAZOLE 39416366846 Active Vishal Hui MD Active RANITIDINE HCL 150 MG CAPS 1 twice a day RANITIDINE HCL 31531226181 Active Luigi Martínez APRN Active LINZESS 290 MCG CAPS Take one by mouth daily LINACLOTIDE 08335512469 No Longer Active Vishal Hui MD Active SAPHRIS 5 MG SUBL 1 tab po qd ASENAPINE MALEATE 88030596301 No Longer Active Vishal Hui MD Active ZALEPLON 10 MG CAPS 1 cap po every other night ZALEPLON 01824027974 No Longer Active Vishal Hui MD Active LYRICA 50 MG CAPS 1 tab po TID PREGABALIN 56114268756 No Longer Active Vishal Hui MD Active LORATADINE 10 MG TABS 1 tab po qd LORATADINE 03494102268 No Longer Active Vishal Hui MD Active VERAPAMIL HCL ER 180 MG CR-TABS 1 tab po bid VERAPAMIL HCL 35590421641 No Longer Active Vishal Hui MD Active MIRALAX POWD 1 capfull once daily POLYETHYLENE GLYCOL 3350 28112978613 No Longer Active Vishal Hui MD Active PREDNISONE 20 MG TABS 1 tab po qd PREDNISONE 73168186389 No Longer Active Renzo Thornton DO Active LEVOFLOXACIN 500 MG TABS 1 tab po qd LEVOFLOXACIN 42714595081 No Longer Active Renzo Thornton DO Active BUSPIRONE HCL 15 MG TABS 1 tab po TID BUSPIRONE HCL 99666128974 No Longer Active Renzo Thornton DO Active BENZTROPINE MESYLATE 1 MG TABS 1 tab po qd BENZTROPINE MESYLATE 44820778902 No Longer Active Renzo Thornton DO Active ATENOLOL 25 MG TABS 1 tab po qd ATENOLOL 27179911409 No Longer Active Renzo Thornton DO Active ESCITALOPRAM OXALATE 20 MG TABS 1 tab po qd ESCITALOPRAM OXALATE 06570150208 No Longer Active Renzo Thornton DO Active ADVAIR DISKUS 250-50 MCG/DOSE AEPB 1 puff BID FLUTICASONE-SALMETEROL 08385363502 No Longer Active Renzo Thornton DO Active PREDNISONE 20 MG TAB 2 tabs daily for 3 days, 1 tab daily for 3 days, 1/2 tab daily for 2 days PREDNISONE 52631714111 No Longer Active Vishal Hui MD Active CEFDINIR 300 MG CAPS by mouth twice a day CEFDINIR 46623666885 No Longer Active Vishal Hui MD Active LANSOPRAZOLE 30 MG CPDR 1 cap po qd LANSOPRAZOLE 45921779312 No Longer Active Vishal Hui MD Active BACLOFEN 20 MG TABS 1 tab po tid BACLOFEN 38834377221 No Longer Active Vishal Hui MD Active ADVAIR DISKUS 250-50 MCG/DOSE AEPB 1 puff BID ADVAIR DISKUS 250-50 MCG/DOSE AEPB FLUTICASONE-SALMETEROL Inactive ESCITALOPRAM OXALATE 20 MG TABS 1 tab po qd ESCITALOPRAM OXALATE 20 MG TABS 772477 ESCITALOPRAM OXALATE Inactive ATENOLOL 25 MG TABS 1 tab po qd ATENOLOL 25 MG TABS 094844 ATENOLOL Inactive BENZTROPINE MESYLATE 1 MG TABS 1 tab po qd BENZTROPINE MESYLATE 1 MG TABS 679325 BENZTROPINE MESYLATE Inactive BUSPIRONE HCL 15 MG TABS 1 tab po TID BUSPIRONE HCL 15 MG TABS 129519 BUSPIRONE HCL Inactive LEVOFLOXACIN 500 MG TABS 1 tab po qd LEVOFLOXACIN 500 MG TABS 092202 LEVOFLOXACIN Inactive PREDNISONE 20 MG TABS 1 tab po qd PREDNISONE 20 MG TABS 870034 PREDNISONE Inactive MIRALAX POWD 1 capfull once daily MIRALAX POWD 800055 POLYETHYLENE GLYCOL 3350 Inactive VERAPAMIL HCL ER 180 MG CR-TABS 1 tab po bid VERAPAMIL HCL ER 180 MG CR-TABS VERAPAMIL HCL Inactive LORATADINE 10 MG TABS 1 tab po qd LORATADINE 10 MG TABS 921490 LORATADINE Inactive LYRICA 50 MG CAPS 1 tab po TID LYRICA 50 MG CAPS PREGABALIN Inactive ZALEPLON 10 MG CAPS 1 cap po every other night ZALEPLON 10 MG CAPS 008062 ZALEPLON Inactive SAPHRIS 5 MG SUBL 1 tab po qd SAPHRIS 5 MG SUBL ASENAPINE MALEATE Inactive TRAZODONE HCL 50 MG TABS 1/2 tab po qd prn for anxiety TRAZODONE HCL 50 MG TABS 758461 TRAZODONE HCL Inactive LATUDA 20 MG TABS Take one by mouth daily LATUDA 20 MG TABS LURASIDONE HCL Inactive LISINOPRIL 20 MG TABS 1 tab po qd LISINOPRIL 20 MG TABS 163357 LISINOPRIL Inactive SAPHRIS 10 MG SUBL 1 [...] twice daily BACTRIM DS 800-160 MG TAB 889986 TRIMETHOPRIM-SULFAMETHOXAZOLE Inactive MULTIVITAMINS CAPS Take one by mouth daily MULTIVITAMINS CAPS MULTIPLE VITAMIN Inactive MELATONIN 3 MG CAPS 2 po q hs MELATONIN 3 MG CAPS 438595 MELATONIN Inactive KEFLEX 500 MG ORAL CAPS 1 cap QID by mouth KEFLEX 500 MG ORAL CAPS 223281 CEPHALEXIN Inactive CLINDAMYCIN HCL 150 MG CAPS 1 four times a day CLINDAMYCIN HCL 150 MG CAPS 831626 CLINDAMYCIN HCL Inactive DIFLUCAN 150 MG TAB 1 tablet by mouth daily DIFLUCAN 150 MG TAB 558343 FLUCONAZOLE Inactive PROZAC 20 MG CAP Take one by mouth daily PROZAC 20 MG CAP 631356 FLUOXETINE HCL Inactive IBUPROFEN 600 MG TAB 1 po TID PRN IBUPROFEN 600 MG TAB 589505 IBUPROFEN Inactive VYVANSE 40 MG CAPS 1 daily, VYVANSE 40 MG CAPS LISDEXAMFETAMINE DIMESYLATE Inactive TRAZODONE HCL 100 MG TAB take 1 at bedtime TRAZODONE HCL 100 MG TAB 047141 TRAZODONE HCL Inactive AMITRIPTYLINE HCL 100 MG TAB one at hs AMITRIPTYLINE HCL 100 MG TAB 368102 AMITRIPTYLINE HCL Inactive AMLODIPINE BESYLATE 5 MG TABS 1 tablet by mouth daily AMLODIPINE BESYLATE 5 MG TABS 659330 AMLODIPINE BESYLATE Inactive LATUDA 80 MG TABS Take one by mouth daily LATUDA 80 MG TABS LURASIDONE HCL Inactive SAPHRIS 5 MG SUBL 1 po bid SAPHRIS 5 MG SUBL ASENAPINE MALEATE Inactive PREDNISONE 20 MG TAB 2 tabs daily for 4 days, 1 tab daily for 4 days, 1/2 tab daily for 4 days PREDNISONE 20 MG TAB 829288 PREDNISONE Inactive AMBIEN 5 MG ORAL TABS 1 tab at bedtime AMBIEN 5 MG ORAL TABS 805101 ZOLPIDEM TARTRATE Inactive PROZAC 20 MG ORAL CAPS 1 tab daily PROZAC 20 MG ORAL CAPS 727465 FLUOXETINE HCL Inactive ABILIFY 15 MG ORAL TABS 1 tab daily ABILIFY 15 MG ORAL TABS 155111 ARIPIPRAZOLE Inactive METOPROLOL TARTRATE 50 MG TAB 1 po bid METOPROLOL TARTRATE 50 MG TAB 752908 METOPROLOL TARTRATE Inactive TRAMADOL HCL 50 MG TABS 1-2 po TID PRN Pain TRAMADOL HCL 50 MG TABS 674549 TRAMADOL HCL Inactive PIROXICAM 20 MG CAPS 1 cap po qd PRN Pain PIROXICAM 20 MG CAPS 721502 PIROXICAM Inactive MINIPRESS 2 MG CAPS 4 cap po at night MINIPRESS 2 MG CAPS 131583 PRAZOSIN HCL Inactive MIRALAX PACK 1 po qd PRN Constipation MIRALAX PACK 786673 POLYETHYLENE GLYCOL 3350 Inactive METOPROLOL TARTRATE 25 MG ORAL TABS 1/2 tablet twice daily for heart rate and blood pressure METOPROLOL TARTRATE 25 MG ORAL TABS 771637 METOPROLOL TARTRATE Inactive VALIUM 5 MG TAB Take 1-2 tablets daily VALIUM 5 MG TAB 538557 DIAZEPAM Inactive FLAGYL 500 MG TAB 1 tablet by mouth bid FLAGYL 500 MG TAB 292300 METRONIDAZOLE Inactive DICLOFENAC POTASSIUM TABS Take 1 tablet twice a day (pt. is not sure of the dose.) DICLOFENAC POTASSIUM TABS DICLOFENAC POTASSIUM TABS Inactive ZITHROMAX Z-EARNEST 250 MG TABS 2 today and then 1 daily for 4 days ZITHROMAX Z-EARNEST 250 MG TABS 4937260 AZITHROMYCIN Inactive PREDNISONE 20 MG TABS 2 daily for 5 days then 1 daily for 5 days PREDNISONE 20 MG TABS 779817 PREDNISONE Inactive PROAIR HFA 108 (90 BASE) MCG/ACT AERS 2 puffs four times a day as needed 2015 PROAIR HFA 108 (90 BASE) MCG/ACT AERS ALBUTEROL SULFATE Inactive HYDROCODONE-ACETAMINOPHEN 5-325 MG TABS 1 to 2 four times a day as needed for pain use until can be seen by specialist HYDROCODONE- ACETAMINOPHEN 5-325 MG TABS 311440 HYDROCODONE-ACETAMINOPHEN Inactive CEFDINIR 300 MG CAPS by mouth twice a day CEFDINIR 300 MG CAPS 895538 CEFDINIR Inactive PREDNISONE 20 MG TAB 2 tabs daily for 3 days, 1 tab daily for 3 days, 1/2 tab daily for 2 days PREDNISONE 20 MG TAB 229015 PREDNISONE Inactive BACTRIM DS 800-160 MG TABS 1 po BID x 7 days BACTRIM DS 800-160 MG TABS 19820521 SULFAMETHOXAZOLE-TRIMETHOPRIM Inactive DIFLUCAN 150 MG TABS 1 pill every other day x 2 doses DIFLUCAN 150 MG TABS 146846 FLUCONAZOLE Inactive BACTRIM DS 800-160 MG TABS 1 pill by mouth twice daily BACTRIM DS 800-160 MG TABS 19820521 SULFAMETHOXAZOLE-TRIMETHOPRIM Inactive KEFLEX 500 MG CAP 1 po TID x 10 days KEFLEX 500 MG CAP 764668 CEPHALEXIN Inactive Advance Directives Directive Description Start [...] % 11.6-14.8 platelet count 394 10^3/MM^3 10*3/mm3 623-561 8708/01/11 leukocyte count, blood 13.8 10^3/MM^3 10*3/mm3 4.6-10.2 [...] Panel - Chemistry sodium, serum 139 mmol/L 189-044 8074/12/03 carbon dioxide, venous blood 28.5 mmol/L 21.0-32.0 [...] 5.5 % 4.3-6.0 cholesterol, serum 159 mg/dL 817-827 8058/12/03 triglyceride, serum, fasting 118 mg/dL 30-200 HDL [...] Panel - Chemistry sodium, serum 139 mmol/L 264-412 6660/12/22 carbon dioxide, venous blood 26.8 mmol/L 21.0-32.0 potassium, serum 4.2 mmol/L 3.5-5.2 chloride, serum 103 mmol/L 98-107 blood glucose 115 mg/dL 65-110 urea nitrogen, blood 20 mg/dL 7-18 creatinine, serum 0.90 mg/dL 0.55-1.30 alanine aminotransferase (SGPT), serum 38 U/L 12-78 aspartate aminotransferase (SGOT), serum 19 U/L 15-37 calcium, serum 8.6 mg/dL 8.5-10.1 bilirubin, serum, total 0.30 mg/dL 0.00-1.00 sodium, serum 139 mmol/L 851-558 7194/01/11 carbon dioxide, venous blood 26.6 mmol/L 21.0-32.0 potassium, serum 4.1 mmol/L 3.5-5.2 chloride, serum 100 mmol/L 98-107 blood glucose 86 mg/dL 65-110 urea nitrogen, blood 16 mg/dL 7-18 creatinine, serum 1.00 mg/dL 0.55-1.30 alanine aminotransferase (SGPT), serum 48 U/L -78 aspartate aminotransferase (SGOT), serum 17 U/L 15-37 calcium, serum 9.1 mg/dL 8.5-10.1 bilirubin, serum, total 0.40 mg/dL 0.00-1.00 sodium, serum 142 mmol/L 120-068 3984/06/08 carbon dioxide, venous blood 27.6 mmol/L 21.0-32.0 potassium, serum 4.0 mmol/L 3.5-5.2 chloride, serum 105 mmol/L 98-107 blood glucose 95 mg/dL 65-110 urea nitrogen, blood 8 mg/dL 7-18 creatinine, serum 0.75 mg/dL 0.55-1.30 alanine aminotransferase (SGPT), serum 49 U/L - aspartate aminotransferase (SGOT), serum 28 U/L 15-37 calcium, serum 9.4 mg/dL 8.5-10.1 bilirubin, serum, total 0.30 mg/dL 0.00-1.00 sodium, serum 140 mmol/L 539-337 9324/08/08 carbon dioxide, venous blood 33.7 mmol/L 21.0-32.0 potassium, serum 5.0 mmol/L 3.5-5.2 chloride, serum 103 mmol/L 98-107 blood glucose 80 mg/dL 65-110 urea nitrogen, blood 13 mg/dL 7-18 creatinine, serum 0.88 mg/dL 0.55-1.30 alanine aminotransferase (SGPT), serum 54 U/L aspartate aminotransferase (SGOT), serum 29 U/L -37 calcium, serum 9.7 mg/dL 8.5-10.1 bilirubin, serum, total 0.30 mg/dL 0.00-1.00 Lab Report: Comp. Metabolic Panel, Erythrocyte Sed Rate - Chemistry sodium, serum 139 mmol/L 473-853 6971/12/11 carbon dioxide, venous blood 25.4 mmol/L 21.0-32.0 [...] stimulating hormone, serum 5.8 m[iU]/mL Lab Report: Ol[place] UADIP W/MICRO, AUTO [...] mg/dL Encounters Code Encounter Date Provider Facility CPT-74377 Level 3 Est. Patient 15:50:44 CDT Vishal Hui MD [facility] CPT-12974 Level 3 Est. Patient 11:36:17 CDT Ahmet Carbajal MD [facility] CPT-66456 Level 3 Est. Patient 13:29:16 CDT Vishal Hui MD [facility] CPT-10219 Level 3 Est. Patient 14:27:52 CDT Neeraj Collins MD [facility] CPT-48046 Level 3 Est. Patient 08:56:03 CDT Luigi Martínez [facility] CPT-02941 Level 4 Est. Patient 12:11:48 CDT Fabiola Johnson [facility] CPT-50818 Level 3 New Patient 16:53:37 CDT Albert Caldera MD [facility] CPT-47780 Level 3 Est. Patient 11:25:49 CDT Renzo Thornton DO [facility] CPT-15271 Level 3 Est. Patient 15:22:01 CDT Ahmet Carbajal MD [facility] CPT-69146 Level 4 Est. Patient 09:00:51 SUPERVISOR WEAVING Vishal Hui MD [facility] CPT-00500 Level 3 Est. Patient 11:37:33 SUPERVISOR WEAVING Vishal Hui MD [facility] CPT-79690 Level 3 Est. Patient 08:41:09 SUPERVISOR WEAVING Vishal Hui MD [facility] CPT-26110 Level 4 Est. Patient 10:19:35 SUPERVISOR WEAVING Vishal Hui MD [facility] CPT-56720 Level 3 Est. Patient 13:35:45 CDT Vishal Hui MD [facility] CPT-07677 Level 4 Est. Patient 10:08:37 CDT Vishal Hui MD [facility] CPT-58109 Level 3 Est. Patient 11:22:10 CDT Vishal Hui MD [facility] CPT-04555 Level 3 Est. Patient 11:03:32 CDT Sahara Rodriguez MD PhD [facility] CPT-15002 Level 3 Est. Patient 09:41:35 CDT Vishal Hui MD [facility] CPT-94800 Level 3 Est. Patient 12:00:41 CDT Neeraj Collins MD [facility] CPT-93775 Level 3 Est. Patient 09:16:24 CDT Vishal Hui MD [facility] CPT-41671 Level 4 Est. Patient 13:59:09 CDT Neeraj Collins MD [facility] CPT-12501 Level 3 Est. Patient 15:19:43 CDT Renzo Thornton [facility] CPT-68592 Level 3 Est. Patient 18:10:26 CDT Sahara Rodriguez MD PhD [facility] CPT-44765 Level 3 Est. Patient 14:49:50 CDT Vishal Hui MD [facility] CPT-20803 Level 4 Est. Patient 18:41:46 CDT Neeraj Collins MD [facility] CPT-47375 Level 4 Est. Patient 09:18:38 SUPERVISOR WEAVING Vishal Hui MD [facility] CPT-52017 Level 3 Est. Patient 14:43:55 SUPERVISOR WEAVING Vishal Hui MD [facility] CPT-52925 Level 3 Est. Patient 15:26:33 SUPERVISOR WEAVING Sahara Rodriguez MD [facility] CPT-56631 Level 3 Est. Patient 10:32:14 SUPERVISOR WEAVING Vishal Hui MD [facility] CPT-75476 Level 3 Est. Patient 15:12:52 SUPERVISOR WEAVING Vsihal Hui MD [facility] CPT-28801 Level 4 Est. Patient 09:19:27 CDT Vishal Hui MD [facility] CPT-99814 Level 3 Est. Patient 15:53:00 CDT Renzo Thornton DO [facility] CPT-21034 Level 3 Est. Patient 15:50:30 CDT Renzo Thornton [facility] CPT-22548 Level 3 Est. Patient 16:55:24 CDT Vishal Hui MD [facility] Procedures Code Procedure Name Date Entry Date Standard Description CPT-19462 Abx/Therapy Injection 08:47:09 CDT CPT-82215 Abx/Therapy Injection 13:29:56 CDT CPT-55673 Abx/Therapy Injection 08:36:16 CDT CPT-17362 Wet Mount - LAB USE ONLY 17:44:58 CDT CPT-46594 UA w micro - LAB USE ONLY 17:44:58 CDT CPT-97707 CMP - LAB USE ONLY 17:44:58 CDT CPT-58408 Venipuncture Draw Fee 17:44:58 CDT CPT-76313 Cervical Min 4V - XRAY USE ONLY 09:01:40 CDT CPT-67517 Chest 2V Frontal and Lat - XRAY USE ONLY 11:06:31 CDT CPT-18988 EKG Trac and Interp - XRAY USE ONLY 11:31:43 CDT 08/26 CPT-J3420 Vitamin B12 1000mcg (Cyanocobalamin) 08:10:26 SUPERVISOR WEAVING 04/12 CPT-90146 Abx/Therapy Injection 08:10:26 SUPERVISOR WEAVING CPT-G0438 Initial Annual Wellness Exam 19:01:01 SUPERVISOR WEAVING CPT-J3420 Vitamin B12 1000mcg (Cyanocobalamin) 16:57:46 CDT 08/14 CPT-26182 Recombivax HB Injection Suspension 5 MCG/0.5ML 08:37:50 SUPERVISOR WEAVING CPT-66127 Immunization Single Admin 08:37:50 SUPERVISOR WEAVING CPT-J3420 Vitamin B12 1000mcg (Cyanocobalamin) 08:32:16 SUPERVISOR WEAVING 03/11 CPT-21293 Abx/Therapy Injection 08:32:16 SUPERVISOR WEAVING CPT-02487 Chest 2V Frontal and Lat 11:46:38 SUPERVISOR WEAVING CPT-14323 Venipuncture Draw Fee 09:12:45 SUPERVISOR WEAVING CPT-J3420 Vitamin B12 1000mcg (Cyanocobalamin) 08:50:15 SUPERVISOR WEAVING 02/08 CPT-74410 Abx/Therapy Injection 08:50:15 SUPERVISOR WEAVING CPT-Cryo Cryotherapy 10:19:35 SUPERVISOR WEAVING CPT-000 Give Appropriate Flu Vaccine 09:22:16 CDT CPT-J3420 Vitamin B12 1000mcg (Cyanocobalamin) 19:08:57 CDT 01/11 CPT-91980 Abx/Therapy Injection 19:08:57 CDT CPT-J3420 Vitamin B12 1000mcg (Cyanocobalamin) 08:19:08 CDT 12/11 CPT-26914 Abx/Therapy Injection 08:19:08 CDT CPT-J3420 Vitamin B12 1000mcg (Cyanocobalamin) 14:48:00 CDT 11/09 CPT-56721 Abx/Therapy Injection 14:47:59 CDT CPT-J3420 Vitamin B12 1000mcg (Cyanocobalamin) 08:34:04 CDT 10/09 CPT-64960 Abx/Therapy Injection 08:34:04 CDT CPT-J3420 Vitamin B12 1000mcg (Cyanocobalamin) 09:18:52 CDT 09/11 CPT-56287 Abx/Therapy Injection 09:18:52 CDT CPT-J3420 Vitamin B12 1000mcg (Cyanocobalamin) 08:35:44 CDT 09/04 CPT-40186 Abx/Therapy Injection 08:35:44 CDT CPT-30341 Immunization Single Admin 11:07:16 CDT CPT-55085 Hepatitis B adult IM 11:07:16 CDT CPT-J3420 Vitamin B12 1000mcg (Cyanocobalamin) 11:00:49 CDT 08/28 CPT-J1040 Depo Medrol 80 mg (Methyl Prednisolone Acetate) 11:00: 49 CDT CPT-07802 Abx/Therapy Injection 11:00:49 CDT CPT-J1040 Depo Medrol 80 mg (Methyl Prednisolone Acetate) 09:16: 23 CDT CPT-J3420 Vitamin B12 1000mcg (Cyanocobalamin) 08:27:05 CDT 08/20 CPT-26708 Abx/Therapy Injection 08:27:05 CDT CPT-96378 Recombivax HB Injection Suspension 5 MCG/0.5ML 10:00:41 CDT CPT-20708 Administration single or combination vaccine inc oral 10 :00:41 CDT CPT-39624 Sono transvag pelvis non OB uterus ovaries cervix 16:36: 57 CDT CPT-35347 LS spine comp w obliq 09:50:55 [employer] CPT-13541 Abd compl w upright 09:50:55 [employer] CPT-J1100 Decadron 4mg (Dexamethasone) 15:51:24 [employer] CPT-J1030 Depo Medrol 40 mg (Methyl Prednisolone Acetate) 15:51: 24 [employer] CPT-59887 Abx/Therapy Injection 15:51:24 [employer] CPT-J1100 Decadron 4mg (Dexamethasone) 15:26:33 [employer] CPT-J1030 Depo Medrol 40 mg (Methyl Prednisolone Acetate) 15:26: 33 [employer] CPT-43664 Sono retroperitoneal complete kidneys and bladder 17:15: 30 CDT CPT-72837 Abd compl w upright 16:09:25 CDT CPT-J1100 Decadron 8mg (Dexamethasone) 17:07:57 CDT CPT-21474 Abx/Therapy Injection 17:07:57 CDT CPT-J1100 Decadron 8mg (Dexamethasone) 16:55:24 CDT CPT-93042 Chest 2V Frontal and Lat 16:32:44 CDT
--- OUTSIDE RECORDS SUMMARY | 2016-11-04 15:52 | XMS REPORT | Clinical Summary ---
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 Hypoxemia Neck pain 723.1 Resolved Vishal Hui [...] times daily as needed for cough BENZONATATE 02755564457 Active Vishal Hui MD Active METHYLPREDNISOLONE 4 MG ORAL TABS po daily METHYLPREDNISOLONE 26947444805 Active Vishal Hui MD Active LEVOFLOXACIN 500 MG ORAL TABS po daily LEVOFLOXACIN 17334430037 Active Vishal Hui MD Active CHANTIX STARTING MONTH EARNEST 0.5 MG X 11 & 1 MG X 42 TABS take as directed 2015 VARENICLINE TARTRATE 66434575610 Active Ahmet Carbajal MD Active CHANTIX 1 MG TABS 1 twice a day to help quit smoking VARENICLINE TARTRATE 75446571638 Active Ahmet Carbajal MD Active HYDROCODONE-ACETAMINOPHEN 5-325 MG TABS 1 to 2 four times a day as needed for pain use until can be seen by specialist HYDROCODONE- ACETAMINOPHEN 21917735290 No Longer Active Vishal Hui MD Active PROAIR HFA 108 (90 BASE) MCG/ACT AERS 2 puffs four times a day as needed 2015 ALBUTEROL SULFATE 52718023491 No Longer Active Vishal Hui MD Active PREDNISONE 20 MG TABS 2 daily for 5 days then 1 daily for 5 days PREDNISONE 80241727009 No Longer Active Vishal Hui MD Active ZITHROMAX Z-EARNEST 250 MG TABS 2 today and then 1 daily for 4 days AZITHROMYCIN 71552861093 No Longer Active Vishal Hui MD Active DICLOFENAC SODIUM 50 MG TBEC 1 tablet by mouth four times daily PRN Pain 2015 DICLOFENAC SODIUM 12165506919 Active Vishal Hui MD Active DICLOFENAC POTASSIUM TABS Take 1 tablet twice a day (pt. is not sure of the dose.) DICLOFENAC POTASSIUM TABS 56963098536 No Longer Active Vishal Hui MD Active VERAPAMIL HCL ER 120 MG ORAL CR-TABS Take 1 tablet by mouth twice a day. VERAPAMIL HCL 35586028886 Active Vishal Hui MD Active FLAGYL 500 MG TAB 1 tablet by mouth bid METRONIDAZOLE 41143069622 No Longer Active Vishal Hui MD Active ABILIFY MAINTENA 400 MG IM SUSR 400mg injection every 28 days ARIPIPRAZOLE 39262600635 Active Silvia Casey SERVICE INSPECTOR Active FLUTICASONE PROPIONATE 50 MCG/ACT SUSP 2 sprays each nostril daily before bed. FLUTICASONE PROPIONATE 21520212215 Active Fabioal Johnson RETAIL ADVERTISING ACCOUNT EXECUTIVE Active ADZENYS XR-ODT 6.3 MG ORAL TBED 1 tab po daily for ADHD AMPHETAMINE 77376161476 Active Fabiolaniall Johnson APRN Active BENADRYL 25 MG CAP 4 po at bedtime for insomnia DIPHENHYDRAMINE HCL 15910147813 Active Fabiola Johnson LEANN Active KLONOPIN 1 MG ORAL TABS 1 tab po TID CLONAZEPAM 25802371505 Active Fabiolaniall Johnson APRN Active VALIUM 5 MG TAB Take 1-2 tablets daily DIAZEPAM 42260913507 No Longer Active Fabiola Johnson LEANN Active METOPROLOL TARTRATE 25 MG ORAL TABS 1/2 tablet twice daily for heart rate and blood pressure METOPROLOL TARTRATE 66366236596 No Longer Active Fabiolaniall Johnson APRN Active MIRALAX ORAL POWD 17GMS DAILY IN WATER POLYETHYLENE GLYCOL 3350 16923275541 Active Vishal Hui MD Active VIIBRYD 10 MG ORAL TABS Take 1 tablet once a day VILAZODONE HCL 30700432686 Active Ahmet Carbajal MD Active MIRALAX PACK 1 po qd PRN Constipation POLYETHYLENE GLYCOL 3350 91403689794 No Longer Active Ahmet Carbajal MD Active MINIPRESS 2 MG CAPS 4 cap po at night PRAZOSIN HCL 12048603634 No Longer Active Ahmet Carbajal MD Active PIROXICAM 20 MG CAPS 1 cap po qd PRN Pain PIROXICAM 94160528960 No Longer Active Ahmet Carbajal MD Active TRAMADOL HCL 50 MG TABS 1-2 po TID PRN Pain TRAMADOL HCL 24144931054 No Longer Active Ahmet Carbajal MD Active METOPROLOL TARTRATE 50 MG TAB 1 po bid METOPROLOL TARTRATE 25463681850 No Longer Active Ahmet Carbajal MD Active ABILIFY 15 MG ORAL TABS 1 tab daily ARIPIPRAZOLE 51548791639 No Longer Active Ahmet Carbajal MD Active PROZAC 20 MG ORAL CAPS 1 tab daily FLUOXETINE HCL 17309263234 No Longer Active Ahmet Carbajal MD Active AMBIEN 5 MG ORAL TABS 1 tab at bedtime ZOLPIDEM TARTRATE 93107770198 No Longer Active Ahmet Carbajal MD Active PREDNISONE 20 MG TAB 2 tabs daily for 4 days, 1 tab daily for 4 days, 1/2 tab daily for 4 days PREDNISONE 03984358830 No Longer Active Ahmet Carbajal MD Active KEFLEX 500 MG CAP 1 po TID x 10 days CEPHALEXIN 07200948891 No Longer Active Vishal Hui MD Active IMITREX 50 MG ORAL TABS 1/2 tab every 6 hours prn SUMATRIPTAN SUCCINATE 23355867517 Active Jillina Frazell RETAIL ADVERTISING ACCOUNT EXECUTIVE Active TOPAMAX 50 MG ORAL TABS 1 tab twice daily TOPIRAMATE 19386951862 Active Vishal Hui MD Active SAPHRIS 5 MG SUBL 1 po bid ASENAPINE MALEATE 25192374835 No Longer Active Jillina Frazell RETAIL ADVERTISING ACCOUNT EXECUTIVE Active LATUDA 80 MG TABS Take one by mouth daily LURASIDONE HCL 43744017212 No Longer Active Jillina Frazell RETAIL ADVERTISING ACCOUNT EXECUTIVE Active AMLODIPINE BESYLATE 5 MG TABS 1 tablet by mouth daily AMLODIPINE BESYLATE 70190625009 No Longer Active Jillina Fralebron WALTERSN Active AMITRIPTYLINE HCL 100 MG TAB one at hs AMITRIPTYLINE HCL 22328181603 No Longer Active Vishal Hui MD Active TRAZODONE HCL 100 MG TAB take 1 at bedtime TRAZODONE HCL 42681645996 No Longer Active Vishal Hui MD Active VYVANSE 40 MG CAPS 1 daily, LISDEXAMFETAMINE DIMESYLATE 69243768381 No Longer Active Vishal Hui MD Active IBUPROFEN 600 MG TAB 1 po TID PRN IBUPROFEN 27081286399 No Longer Active Vishal Hui MD Active PROZAC 20 MG CAP Take one by mouth daily FLUOXETINE HCL 59299789186 No Longer Active Vishal Hui MD Active ZOFRAN 4 MG TABS 1 po q6hr PRN Nausea ONDANSETRON HCL Active Vishal Hui MD Active BACTRIM DS 800-160 MG TABS 1 pill by mouth twice daily SULFAMETHOXAZOLE-TRIMETHOPRIM 45639750018 No Longer Active Sahara Rodriguez MD PhD Active DIFLUCAN 150 MG TAB 1 tablet by mouth daily FLUCONAZOLE 36256201017 No Longer Active Vishal Hui MD Active TIZANIDINE HCL 4 MG TABS 1 po q6hr PRN Muscle Spasm/Back Pain TIZANIDINE HCL 61843294172 Active Vishal Hui MD Active CLINDAMYCIN HCL 150 MG CAPS 1 four times a day CLINDAMYCIN HCL 34430308381 No Longer Active Neeraj Collins MD Active KEFLEX 500 MG ORAL CAPS 1 cap QID by mouth CEPHALEXIN 68880675983 No Longer Active Neeraj Collins MD Active DIFLUCAN 150 MG TABS 1 pill every other day x 2 doses FLUCONAZOLE 95065892104 No Longer Active Sahara Rodriguez MD PhD Active MELATONIN 3 MG CAPS 2 po q hs MELATONIN 13547859750 No Longer Active Sahara Rodriguez MD PhD Active MULTIVITAMINS CAPS Take one by mouth daily MULTIPLE VITAMIN 81083258096 No Longer Active Sahara Rodriguez MD PhD Active BACTRIM DS 800-160 MG TAB 1 tab by mouth twice daily TRIMETHOPRIM-SULFAMETHOXAZOLE 13998713293 No Longer Active Sahara Rodriguez MD PhD Active [facility] PROBIOTIC ORAL CHEW 2 daily po PROBIOTIC PRODUCT 83410354581 No Longer Active Sahara Rodriguez MD PhD Active BACTRIM DS 800-160 MG TABS 1 po BID x 7 days SULFAMETHOXAZOLE-TRIMETHOPRIM 69837748023 No Longer Active Vishal Hui MD Active CHANTIX STARTING MONTH EARNEST 0.5 MG X 11 & 1 MG X 42 TABS 0.5mg daily for 3 days , then 0.5mg BID for 4 days, then 1mg BID VARENICLINE TARTRATE 15113628703 No Longer Active BERNARD GrayHope Active VERAPAMIL HCL CR 120 MG TAB CR 1 po bid VERAPAMIL HCL 73435214500 No Longer Active Vishal Hui MD Active METOPROLOL SUCCINATE 50 MG TB24 1 tablet by mouth daily METOPROLOL SUCCINATE 12334733673 No Longer Active Vishal Hui MD Active SAPHRIS 10 MG SUBL 1 tab po bid ASENAPINE MALEATE 05624873412 No Longer Active Vishal Hui MD Active LISINOPRIL 20 MG TABS 1 tab po qd LISINOPRIL 50813886611 No Longer Active Vishal Hui MD Active LATUDA 20 MG TABS Take one by mouth daily LURASIDONE HCL 39428359890 No Longer Active Vishal Hui MD Active TRAZODONE HCL 50 MG TABS 1/2 tab po qd prn for anxiety TRAZODONE HCL 99422946548 No Longer Active Vishal Hui MD Active OMEPRAZOLE 20 MG TBEC 1 po q a.m. 30min prior to first food intake OMEPRAZOLE 45246579792 Active Vishal Hui MD Active RANITIDINE HCL 150 MG CAPS 1 twice a day RANITIDINE HCL 60449704353 Active Luigi Martínez APRN Active LINZESS 290 MCG CAPS Take one by mouth daily LINACLOTIDE 33594398598 No Longer Active Vishal Hui MD Active SAPHRIS 5 MG SUBL 1 tab po qd ASENAPINE MALEATE 68477790516 No Longer Active Vishal Hui MD Active ZALEPLON 10 MG CAPS 1 cap po every other night ZALEPLON 80156942937 No Longer Active Vishal Hui MD Active LYRICA 50 MG CAPS 1 tab po TID PREGABALIN 15841918125 No Longer Active Vishal Hui MD Active LORATADINE 10 MG TABS 1 tab po qd LORATADINE 29020737182 No Longer Active Vishal Hui MD Active VERAPAMIL HCL ER 180 MG CR-TABS 1 tab po bid VERAPAMIL HCL 03460870601 No Longer Active Vishal Hui MD Active MIRALAX POWD 1 capfull once daily POLYETHYLENE GLYCOL 3350 88751727806 No Longer Active Vishal Hui MD Active PREDNISONE 20 MG TABS 1 tab po qd PREDNISONE 93168440471 No Longer Active Renzo Thornton DO Active LEVOFLOXACIN 500 MG TABS 1 tab po qd LEVOFLOXACIN 30035724324 No Longer Active Renzo Thornton DO Active BUSPIRONE HCL 15 MG TABS 1 tab po TID BUSPIRONE HCL 37437780245 No Longer Active Renzo Thornton DO Active BENZTROPINE MESYLATE 1 MG TABS 1 tab po qd BENZTROPINE MESYLATE 21199332266 No Longer Active Renzo Thornton DO Active ATENOLOL 25 MG TABS 1 tab po qd ATENOLOL 81376347967 No Longer Active Renzo Thornton DO Active ESCITALOPRAM OXALATE 20 MG TABS 1 tab po qd ESCITALOPRAM OXALATE 12355972741 No Longer Active Renzo Thornton DO Active ADVAIR DISKUS 250-50 MCG/DOSE AEPB 1 puff BID FLUTICASONE-SALMETEROL 60122009083 No Longer Active Renzo Thornton DO Active PREDNISONE 20 MG TAB 2 tabs daily for 3 days, 1 tab daily for 3 days, 1/2 tab daily for 2 days PREDNISONE 97064089915 No Longer Active Vishal Hui MD Active CEFDINIR 300 MG CAPS by mouth twice a day CEFDINIR 07990575092 No Longer Active Vishal Hui MD Active LANSOPRAZOLE 30 MG CPDR 1 cap po qd LANSOPRAZOLE 34292099949 No Longer Active Vishal Hui MD Active BACLOFEN 20 MG TABS 1 tab po tid BACLOFEN 94697723000 No Longer Active Vishal Hui MD Active ADVAIR DISKUS 250-50 MCG/DOSE AEPB 1 puff BID ADVAIR DISKUS 250-50 MCG/DOSE AEPB FLUTICASONE-SALMETEROL Inactive ESCITALOPRAM OXALATE 20 MG TABS 1 tab po qd ESCITALOPRAM OXALATE 20 MG TABS 815650 ESCITALOPRAM OXALATE Inactive ATENOLOL 25 MG TABS 1 tab po qd ATENOLOL 25 MG TABS 660713 ATENOLOL Inactive BENZTROPINE MESYLATE 1 MG TABS 1 tab po qd BENZTROPINE MESYLATE 1 MG TABS 246057 BENZTROPINE MESYLATE Inactive BUSPIRONE HCL 15 MG TABS 1 tab po TID BUSPIRONE HCL 15 MG TABS 235417 BUSPIRONE HCL Inactive LEVOFLOXACIN 500 MG TABS 1 tab po qd LEVOFLOXACIN 500 MG TABS 465117 LEVOFLOXACIN Inactive PREDNISONE 20 MG TABS 1 tab po qd PREDNISONE 20 MG TABS 904425 PREDNISONE Inactive MIRALAX POWD 1 capfull once daily MIRALAX POWD 471258 POLYETHYLENE GLYCOL 3350 Inactive VERAPAMIL HCL ER 180 MG CR-TABS 1 tab po bid VERAPAMIL HCL ER 180 MG CR-TABS VERAPAMIL HCL Inactive LORATADINE 10 MG TABS 1 tab po qd LORATADINE 10 MG TABS 807302 LORATADINE Inactive LYRICA 50 MG CAPS 1 tab po TID LYRICA 50 MG CAPS PREGABALIN Inactive ZALEPLON 10 MG CAPS 1 cap po every other night ZALEPLON 10 MG CAPS 508414 ZALEPLON Inactive SAPHRIS 5 MG SUBL 1 tab po qd SAPHRIS 5 MG SUBL ASENAPINE MALEATE Inactive TRAZODONE HCL 50 MG TABS 1/2 tab po qd prn for anxiety TRAZODONE HCL 50 MG TABS 019454 TRAZODONE HCL Inactive LATUDA 20 MG TABS Take one by mouth daily LATUDA 20 MG TABS LURASIDONE HCL Inactive LISINOPRIL 20 MG TABS 1 tab po qd LISINOPRIL 20 MG TABS 237044 LISINOPRIL Inactive SAPHRIS 10 MG SUBL 1 [...] twice daily BACTRIM DS 800-160 MG TAB 304501 TRIMETHOPRIM-SULFAMETHOXAZOLE Inactive MULTIVITAMINS CAPS Take one by mouth daily MULTIVITAMINS CAPS MULTIPLE VITAMIN Inactive MELATONIN 3 MG CAPS 2 po q hs MELATONIN 3 MG CAPS 837484 MELATONIN Inactive KEFLEX 500 MG ORAL CAPS 1 cap QID by mouth KEFLEX 500 MG ORAL CAPS 403201 CEPHALEXIN Inactive CLINDAMYCIN HCL 150 MG CAPS 1 four times a day CLINDAMYCIN HCL 150 MG CAPS 860577 CLINDAMYCIN HCL Inactive DIFLUCAN 150 MG TAB 1 tablet by mouth daily DIFLUCAN 150 MG TAB 343529 FLUCONAZOLE Inactive PROZAC 20 MG CAP Take one by mouth daily PROZAC 20 MG CAP 193086 FLUOXETINE HCL Inactive IBUPROFEN 600 MG TAB 1 po TID PRN IBUPROFEN 600 MG TAB 874196 IBUPROFEN Inactive VYVANSE 40 MG CAPS 1 daily, VYVANSE 40 MG CAPS LISDEXAMFETAMINE DIMESYLATE Inactive TRAZODONE HCL 100 MG TAB take 1 at bedtime TRAZODONE HCL 100 MG TAB 898529 TRAZODONE HCL Inactive AMITRIPTYLINE HCL 100 MG TAB one at hs AMITRIPTYLINE HCL 100 MG TAB 170925 AMITRIPTYLINE HCL Inactive AMLODIPINE BESYLATE 5 MG TABS 1 tablet by mouth daily AMLODIPINE BESYLATE 5 MG TABS 249558 AMLODIPINE BESYLATE Inactive LATUDA 80 MG TABS Take one by mouth daily LATUDA 80 MG TABS LURASIDONE HCL Inactive SAPHRIS 5 MG SUBL 1 po bid SAPHRIS 5 MG SUBL ASENAPINE MALEATE Inactive PREDNISONE 20 MG TAB 2 tabs daily for 4 days, 1 tab daily for 4 days, 1/2 tab daily for 4 days PREDNISONE 20 MG TAB 636505 PREDNISONE Inactive AMBIEN 5 MG ORAL TABS 1 tab at bedtime AMBIEN 5 MG ORAL TABS 824863 ZOLPIDEM TARTRATE Inactive PROZAC 20 MG ORAL CAPS 1 tab daily PROZAC 20 MG ORAL CAPS 684624 FLUOXETINE HCL Inactive ABILIFY 15 MG ORAL TABS 1 tab daily ABILIFY 15 MG ORAL TABS 401957 ARIPIPRAZOLE Inactive METOPROLOL TARTRATE 50 MG TAB 1 po bid METOPROLOL TARTRATE 50 MG TAB 057205 METOPROLOL TARTRATE Inactive TRAMADOL HCL 50 MG TABS 1-2 po TID PRN Pain TRAMADOL HCL 50 MG TABS 535414 TRAMADOL HCL Inactive PIROXICAM 20 MG CAPS 1 cap po qd PRN Pain PIROXICAM 20 MG CAPS 522782 PIROXICAM Inactive MINIPRESS 2 MG CAPS 4 cap po at night MINIPRESS 2 MG CAPS 451180 PRAZOSIN HCL Inactive MIRALAX PACK 1 po qd PRN Constipation MIRALAX PACK 530357 POLYETHYLENE GLYCOL 3350 Inactive METOPROLOL TARTRATE 25 MG ORAL TABS 1/2 tablet twice daily for heart rate and blood pressure METOPROLOL TARTRATE 25 MG ORAL TABS 224578 METOPROLOL TARTRATE Inactive VALIUM 5 MG TAB Take 1-2 tablets daily VALIUM 5 MG TAB 955505 DIAZEPAM Inactive FLAGYL 500 MG TAB 1 tablet by mouth bid FLAGYL 500 MG TAB 642854 METRONIDAZOLE Inactive DICLOFENAC POTASSIUM TABS Take 1 tablet twice a day (pt. is not sure of the dose.) DICLOFENAC POTASSIUM TABS DICLOFENAC POTASSIUM TABS Inactive ZITHROMAX Z-EARNEST 250 MG TABS 2 today and then 1 daily for 4 days ZITHROMAX Z-EARNEST 250 MG TABS 2047328 AZITHROMYCIN Inactive PREDNISONE 20 MG TABS 2 daily for 5 days then 1 daily for 5 days PREDNISONE 20 MG TABS 558441 PREDNISONE Inactive PROAIR HFA 108 (90 BASE) MCG/ACT AERS 2 puffs four times a day as needed 2015 PROAIR HFA 108 (90 BASE) MCG/ACT AERS ALBUTEROL SULFATE Inactive HYDROCODONE-ACETAMINOPHEN 5-325 MG TABS 1 to 2 four times a day as needed for pain use until can be seen by specialist HYDROCODONE- ACETAMINOPHEN 5-325 MG TABS 258097 HYDROCODONE-ACETAMINOPHEN Inactive CEFDINIR 300 MG CAPS by mouth twice a day CEFDINIR 300 MG CAPS 224040 CEFDINIR Inactive PREDNISONE 20 MG TAB 2 tabs daily for 3 days, 1 tab daily for 3 days, 1/2 tab daily for 2 days PREDNISONE 20 MG TAB 677179 PREDNISONE Inactive BACTRIM DS 800-160 MG TABS 1 po BID x 7 days BACTRIM DS 800-160 MG TABS 19820521 SULFAMETHOXAZOLE-TRIMETHOPRIM Inactive DIFLUCAN 150 MG TABS 1 pill every other day x 2 doses DIFLUCAN 150 MG TABS 542933 FLUCONAZOLE Inactive BACTRIM DS 800-160 MG TABS 1 pill by mouth twice daily BACTRIM DS 800-160 MG TABS 19820521 SULFAMETHOXAZOLE-TRIMETHOPRIM Inactive KEFLEX 500 MG CAP 1 po TID x 10 days KEFLEX 500 MG CAP 807191 CEPHALEXIN Inactive Advance Directives Directive Description Start [...] pressure, diastolic - 8462-4 86 mm[Hg] BP mcnlaly blood pressure, systolic - 8480-6 142 mm[Hg] [...] Range Description Lab Report: CBC - Hematology hemoglobin, blood 13.1 g/dL 12.0-16.0 hematocrit, blood 39.0 % 36.0-46.0 mean corpuscular volume, RBC 93 fL 80-97 mean corpuscular hemoglobin, RBC 31.4 pg 27.0-31.2 red blood cell distribution width 13.4 % 11.6-14.8 platelet count 394 10^3/MM^3 10*3/mm3 780-786 8707/12/22 erythrocyte (RBC) count 4.19 10^6/MM^3 10*6/mm3 4.04-5.48 leukocyte count, blood 10.5 10^3/MM^3 10*3/mm3 4.6-10.2 mean corpuscular hemoglobin concentration, RBC 33.7 G/DL % 31.8- 35.4 leukocyte count, blood 13.8 10^3/MM^3 10*3/mm3 4.6-10.2 mean corpuscular hemoglobin concentration, RBC 33.6 G/DL % 31.8- 35.4 red blood cell distribution width 14.4 % 11.6-14.8 platelet count 390 10^3/MM^3 10*3/mm3 464-214 0117/01/11 erythrocyte (RBC) count 4.46 10^6/MM^3 10*6/mm3 4.04-5.48 [...] Panel - Chemistry sodium, serum 139 mmol/L 907-989 3346/12/03 carbon dioxide, venous blood 28.5 mmol/L 21.0-32.0 [...] 5.5 % 4.3-6.0 cholesterol, serum 159 mg/dL 014-013 8690/12/03 triglyceride, serum, fasting 118 mg/dL 30-200 HDL cholesterol, serum 45 mg/dL 32-96 LDL cholesterol, serum 90 mg/dL 0-130 Lab Report: CBC W/DIFF, Comp. Metabolic Panel, HGBA1C, Lipid Panel - Hematology leukocyte count, blood 12.5 10^3/MM^3 10*3/mm3 4.6-10.2 hemoglobin, blood 13.8 g/dL 12.0-16.0 erythrocyte (RBC) count 4.38 10^6/MM^3 10*6/mm3 4.04-5.48 lymphocytes as percent of blood leukocytes 26.7 % 20.5-51.1 monocytes as percent of blood leukocytes 8.0 % 1.7-9.3 neutrophils as percent of blood leukocytes 62.7 % 42.2-75.2 hematocrit, blood 40.8 % 36.0-46.0 mean corpuscular volume, RBC 93 fL 80-97 mean corpuscular hemoglobin, RBC 31.6 pg 27.0-31.2 mean corpuscular hemoglobin concentration, RBC 34.0 G/DL % 31.8- 35.4 red blood cell distribution width 12.8 % 11.6-14.8 platelet count 362 10^3/MM^3 10*3/mm3 142-424 Lab Report: Comp. Metabolic Panel - Chemistry carbon dioxide, venous blood 26.6 mmol/L 21.0-32.0 potassium, serum 4.1 mmol/L 3.5-5.2 chloride, serum 100 mmol/L 98-107 blood glucose 86 mg/dL 65-110 urea nitrogen, blood 16 mg/dL 7-18 sodium, serum 142 mmol/L 355-295 3999/06/08 creatinine, serum 0.75 mg/dL 0.55-1.30 alanine aminotransferase (SGPT), serum 49 U/L -78 aspartate aminotransferase (SGOT), serum 28 U/L 15-37 calcium, serum 9.4 mg/dL 8.5-10.1 bilirubin, serum, total 0.30 mg/dL 0.00-1.00 sodium, serum 139 mmol/L 447-019 5109/01/11 creatinine, serum 1.00 mg/dL 0.55-1.30 alanine aminotransferase (SGPT), serum 48 U/L - aspartate aminotransferase (SGOT), serum 17 U/L 15-37 calcium, serum 9.1 mg/dL 8.5-10.1 bilirubin, serum, total 0.40 mg/dL 0.00-1.00 sodium, serum 139 mmol/L 889-618 4010/12/22 creatinine, serum 0.90 mg/dL 0.55-1.30 alanine aminotransferase (SGPT), serum 38 U/L aspartate aminotransferase (SGOT), serum 19 U/L 15-37 calcium, serum 8.6 mg/dL 8.5-10.1 bilirubin, serum, total 0.30 mg/dL 0.00-1.00 carbon dioxide, venous blood 26.8 mmol/L 21.0-32.0 potassium, serum 4.2 mmol/L 3.5-5.2 chloride, serum 103 mmol/L 98-107 blood glucose 115 mg/dL 65-110 urea nitrogen, blood 20 mg/dL 7-18 carbon dioxide, venous blood 27.6 mmol/L 21.0-32.0 potassium, serum 4.0 mmol/L 3.5-5.2 chloride, serum 105 mmol/L 98-107 blood glucose 95 mg/dL 65-110 urea nitrogen, blood 8 mg/dL 7-18 sodium, serum 140 mmol/L 861-935 5812/08/08 creatinine, serum 0.88 mg/dL 0.55-1.30 alanine aminotransferase (SGPT), serum 54 U/L 12-78 aspartate aminotransferase (SGOT), serum 29 U/L 15-37 calcium, serum 9.7 mg/dL 8.5-10.1 bilirubin, serum, total 0.30 mg/dL 0.00-1.00 carbon dioxide, venous blood 33.7 mmol/L 21.0-32.0 potassium, serum 5.0 mmol/L 3.5-5.2 chloride, serum 103 mmol/L 98-107 blood glucose 80 mg/dL 65-110 urea nitrogen, blood 13 mg/dL 7- Lab Report: Comp. Metabolic Panel, Erythrocyte Sed Rate - Chemistry carbon dioxide, venous blood 25.4 mmol/L 21.0-32.0 creatinine, serum 0.96 mg/dL 0.55-1.30 alanine aminotransferase (SGPT), serum 34 U/L 12-78 aspartate aminotransferase (SGOT), serum 12 U/L 15-37 calcium, serum 8.6 mg/dL 8.5-10.1 bilirubin, serum, total 0.20 mg/dL 0.00-1.00 potassium, serum 3.9 mmol/L 3.5-5.2 chloride, serum 105 mmol/L 98-107 blood glucose 98 mg/dL 65-110 urea nitrogen, blood 18 mg/dL 7-18 sodium, serum 139 mmol/L 136-145 Lab Report: LH/Adult/615, FSH/Adult/470 - Chemistry follicle [...] 1.025 1.000-1.030 pH, urine, semiquantitative 5.5 5.0-8.5 ketones, urine, by test strip Negative Negative bilirubin, urine Negative Negative urine color Yellow Colorless;Lightyellow;Straw;Yellow appearance, urine SlCloudy Clear urine color Yellow Colorless;Lightyellow;Straw;Yellow urobilinogen, urine, semiquantitative (dipstick) 0.2 Normal leukocyte esterase, urine, by dipstick Negative Negative glucose, urine, semiquantitative Negative Negative bilirubin, urine Negative Negative specific gravity, urine >=1.030 1.000-1.030 pH, urine, semiquantitative 5.5 5.0-8.5 ketones, urine, by test strip Negative Negative nitrite, urine, semiquantitative Negative Negative appearance, urine Clear Clear specific gravity, urine 1.025 1.000-1.030 pH, urine, semiquantitative 6.0 5.0-8.5 leukocyte esterase, urine, by dipstick Negative Negative glucose, urine, semiquantitative Negative Negative ketones, urine, by test strip Negative Negative bilirubin, urine Negative Negative urine color Yellow Colorless;Lightyellow;Straw;Yellow appearance, urine Clear Clear specific gravity, urine 1.025 1.000-1.030 pH, urine, semiquantitative 5.5 5.0-8.5 urobilinogen, urine, semiquantitative (dipstick) 0.2 Normal nitrite, urine, semiquantitative Negative Negative Office Visit: Consult for Painful Lipoma - Chemistry cholesterol, target level 200 mg/dL triglyceride, target level 200 mg/dL HDL cholesterol, serum, target level 35 mg/dL LDL target level 100 mg/dL Encounters Code Encounter Date Provider Facility CPT-55914 Level 3 Est. Patient 15:50:44 CDT Vishal Hui MD [facility] CPT-04721 Level 3 Est. Patient 11:36:17 CDT Ahmet Carbajal MD [facility] CPT-31124 Level 3 Est. Patient 13:29:16 CDT Vishal Hui MD [facility] CPT-75987 Level 3 Est. Patient 14:27:52 CDT Neeraj Collins MD [facility] CPT-13946 Level 3 Est. Patient 08:56:03 CDT Luigi Martínez [facility] CPT-85942 Level 4 Est. Patient 12:11:48 CDT Fabiola Johnson [facility] CPT-22430 Level 3 New Patient 16:53:37 CDT Albert Caldera MD [facility] CPT-32537 Level 3 Est. Patient 11:25:49 CDT Renzo Thornton DO [facility] CPT-30618 Level 3 Est. Patient 15:22:01 CDT Ahmet Carbajal MD [facility] CPT-26344 Level 4 Est. Patient 09:00:51 DERMATOLOGIST MANAGING PARTNER Vishal Hui MD [facility] CPT-90462 Level 3 Est. Patient 11:37:33 DERMATOLOGIST MANAGING PARTNER Vishal Hui MD [facility] CPT-41497 Level 3 Est. Patient 08:41:09 DERMATOLOGIST MANAGING PARTNER Vishal Hui MD [facility] CPT-97647 Level 4 Est. Patient 10:19:35 DERMATOLOGIST MANAGING PARTNER Vishal Hui MD [facility] CPT-64726 Level 3 Est. Patient 13:35:45 CDT Vishal Hui MD [facility] CPT-18751 Level 4 Est. Patient 10:08:37 CDT Vishal Hui MD [facility] CPT-56172 Level 3 Est. Patient 11:22:10 CDT Vishal Hui MD [facility] CPT-28913 Level 3 Est. Patient 11:03:32 CDT Sahara Rodriguez MD, PhD [facility] CPT-97111 Level 3 Est. Patient 09:41:35 CDT Vishal Hui MD [facility]-14707 Level 3 Est. Patient 12:00:41 CDT Neeraj Collins MD [facility] CPT-13095 Level 3 Est. Patient 09:16:24 CDT Vishal Hui MD [facility] CPT-77614 Level 4 Est. Patient 13:59:09 CDT Neeraj Collins MD [facility] CPT-51090 Level 3 Est. Patient 15:19:43 CDT Renzo Thornton [facility] CPT-18494 Level 3 Est. Patient 18:10:26 CDT Sahara Rodriguez MD PhD [facility] CPT-06706 Level 3 Est. Patient 14:49:50 CDT Vishal Hui MD [facility] CPT-70337 Level 4 Est. Patient 18:41:46 CDT Neeraj Collins MD [facility] CPT-57146 Level 4 Est. Patient 09:18:38 DERMATOLOGIST MANAGING PARTNER Vishal Hui MD [facility] CPT-27641 Level 3 Est. Patient 14:43:55 DERMATOLOGIST [employer]NAGING [employer]NER Vishal Hui MD [facility] CPT-12630 Level 3 Est. Patient 15:26:33 DERMATOLOGIST [employer]NA[employer]ING [employer]NER Sahara Rodriguez MD PhD [facility] CPT-32128 Level 3 Est. 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 Patient 09:19:27 CDT Vishal Hui MD [facility] CPT-84726 Level 3 Est. Patient 15:53:00 CDT Renzo Thornton [facility] CPT-95458 Level 3 Est. Patient 15:50:30 CDT Renzo Thornton [facility] CPT-72613 Level 3 Est. Patient 16:55:24 CDT Vishal Hui MD [facility] Procedures Code Procedure Name Date Entry Date Standard Description CPT-21026 Abx/Therapy Injection 08:47:09 CDT CPT-27786 Abx/Therapy Injection 13:29:56 CDT CPT-77265 Abx/Therapy Injection 08:36:16 CDT CPT-58928 Wet Mount - LAB USE ONLY 17:44:58 CDT CPT-78894 UA w micro - LAB USE ONLY 17:44:58 CDT CPT-36763 CMP - LAB USE ONLY 17:44:58 CDT CPT-29187 Venipuncture Draw Fee 17:44:58 CDT CPT-58412 Cervical Min 4V - XRAY USE ONLY 09:01:40 CDT CPT-21000 Chest 2V Frontal and Lat - XRAY USE ONLY 11:06:31 CDT CPT-41149 EKG Trac and Interp - XRAY USE ONLY 11:31:43 CDT 08/26 CPT-J3420 Vitamin B12 1000mcg (Cyanocobalamin) 08:10:26 [employer] 04/12 CPT-78006 Abx/Therapy Injection 08:10:26 [employer]MATOLOG[employer] CPT-G0438 Initial Annual Wellness Exam 19:01:01 [employer] CPT-J3420 Vitamin B12 1000mcg (Cyanocobalamin) 16:57:46 CDT 08/14 CPT-59777 Recombivax HB Injection Suspension 5 MCG/0.5ML 08:37:50 [employer] CPT-70470 Immunization Single Admin 08:37:50 [employer]MATOLOG[employer] CPT-J3420 Vitamin B12 1000mcg (Cyanocobalamin) 08:32:16 [employer]MATOLOG[employer] 03/11 CPT-81679 Abx/Therapy Injection 08:32:16 [employer]MATOLOGIST [employer] CPT-74175 Chest 2V Frontal and Lat 11:46:38 [employer]MATOLOG[employer] CPT-23312 Venipuncture Draw Fee 09:12:45 [employer]MATOLOGIST [employer] CPT-J3420 Vitamin B12 1000mcg (Cyanocobalamin) 08:50:15 [employer]MATOLOGIST [employer]NA[employer]ING [employer] 02/08 CPT-49850 Abx/Therapy Injection 08:50:15 [employer]MATOLOGIST [employer]NA[employer]ING [employer] CPT-Cryo Cryotherapy 10:19:35 [employer]MATOLOG[employer] CPT-000 Give Appropriate Flu Vaccine 09:22:16 CDT CPT-J3420 Vitamin B12 1000mcg (Cyanocobalamin) 19:08:57 CDT 01/11 CPT-36867 Abx/Therapy Injection 19:08:57 CDT CPT-J3420 Vitamin B12 1000mcg (Cyanocobalamin) 08:19:08 CDT 12/11 CPT-93249 Abx/Therapy Injection 08:19:08 CDT CPT-J3420 Vitamin B12 1000mcg (Cyanocobalamin) 14:48:00 CDT 11/09 CPT-25318 Abx/Therapy Injection 14:47:59 CDT CPT-J3420 Vitamin B12 1000mcg (Cyanocobalamin) 08:34:04 CDT 10/09 CPT-22475 Abx/Therapy Injection 08:34:04 CDT CPT-J3420 Vitamin B12 1000mcg (Cyanocobalamin) 09:18:52 CDT 09/11 CPT-05748 Abx/Therapy Injection 09:18:52 CDT CPT-J3420 Vitamin B12 1000mcg (Cyanocobalamin) 08:35:44 CDT 09/04 CPT-70129 Abx/Therapy Injection 08:35:44 CDT CPT-40990 Immunization Single Admin 11:07:16 CDT CPT-56602 Hepatitis B adult IM 11:07:16 CDT CPT-J3420 Vitamin B12 1000mcg (Cyanocobalamin) 11:00:49 CDT 08/28 CPT-J1040 Depo Medrol 80 mg (Methyl Prednisolone Acetate) 11:00: 49 CDT CPT-97394 Abx/Therapy Injection 11:00:49 CDT CPT-J1040 Depo Medrol 80 mg (Methyl Prednisolone Acetate) 09:16: 23 CDT CPT-J3420 Vitamin B12 1000mcg (Cyanocobalamin) 08:27:05 CDT 08/20 CPT-21236 Abx/Therapy Injection 08:27:05 CDT CPT-87595 Recombivax HB Injection Suspension 5 MCG/0.5ML 10:00:41 CDT CPT-61745 Administration single or combination vaccine inc oral 10 :00:41 CDT CPT-92385 Sono transvag pelvis non OB uterus ovaries cervix 16:36: 57 CDT CPT-32368 LS spine comp w obliq 09:50:55 [employer]MATOLOG[employer] CPT-00673 Abd compl w upright 09:50:55 [employer]MATOLOGIST [employer]ING [employer] CPT-J1100 Decadron 4mg (Dexamethasone) 15:51:24 [employer]MATOLOGIST [employer] CPT-J1030 Depo Medrol 40 mg (Methyl Prednisolone Acetate) 15:51: 24 [employer]MATOLOGIST [employer] CPT-29427 Abx/Therapy Injection 15:51:24 DERMATOLOGIST [employer]NAGING [employer]NER CPT-J1100 Decadron 4mg (Dexamethasone) 15:26:33 [employer]MATOLOGIST [employer]NAGING [employer] CPT-J1030 Depo Medrol 40 mg (Methyl Prednisolone Acetate) 15:26: 33 [employer]MATOLOGIST [employer] CPT-85084 Sono retroperitoneal complete kidneys and bladder 17:15: 30 CDT CPT-70204 Abd compl w upright 16:09:25 CDT CPT-J1100 Decadron 8mg (Dexamethasone) 17:07:57 CDT CPT-66348 Abx/Therapy Injection 17:07:57 CDT CPT-J1100 Decadron 8mg (Dexamethasone) 16:55:24 CDT CPT-69698 Chest 2V Frontal and Lat 16:32:44 CDT
--- OUTSIDE RECORDS SUMMARY | 2016-11-04 15:55 | XMS REPORT | Clinical Summary ---
Author Author Admin, E Organization [employer] Address Unknown Phone Unavailable Allergies, Adverse Reactions, [...] sites Morbid obesity 278.01 Active Juliet Kimbrough MONOTYPE MECHANIC Morbid obesity 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 Active Juliet Kimbrough MONOTYPE MECHANIC Dependence on other enabling machines and devices [...] Active Ahmet Carbajal MD Generalized anxiety disorder Geodetic Survey Director well woman exam V72.31 Resolved Suzan Boo [...] cessation discussed ICD-305.1 Inactive Vishal Hui MD Pneumonia, organism unspecified ICD-486 Inactive Vishal Hui MD Pelvic pain ICD-625.9 [...] of sutures ICD-V58.32 Inactive Vishal Hui MD Abdominal pain ICD-789.00 Inactive Vishal Hui MD Cellulitis ICD-682.9 Inactive Vishal Hui MD Leukocytosis ICD-288.60 Inactive Vishal Hui MD UTI ICD-599.0 Inactive Vishal Hui MD Headache, atypical ICD-784.0 Inactive Albert Caldera MD Elevated blood glucose ICD-790.29 Inactive Vishal Hui MD Gait unsteady ICD-781.2 Inactive Albert Caldera MD Lipoma ICD-214.9 Inactive Albert Caldera MD Abdominal pain, RUQ ICD-789.01 Inactive Albert Caldera MD Chest pain, acute ICD-786.50 Inactive Albert Caldera MD Hot flashes ICD-627.2 Inactive Vishal Hui MD Personality change ICD-301.9 Inactive Vishal Hui MD Nocturnal hypoxia ICD-799.02 [...] Bronchitis, acute ICD-466.0 Inactive Ahmet Carbajal MD Geodetic Survey Director well woman exam ICD-V72.31 Inactive Suzan Boo APRN Bronchitis, acute with mild bronchospasm ICD-466.0 Inactive Suzan Boo APRN Tracheitis ICD-464.10 Inactive Suzan Boo APRN Localized adiposity ICD-278.1 Inactive Vishal Hui MD Shortness of breath ICD-786.05 Inactive Vishal Hui MD Impetigo ICD-684 Inactive Suzan Boo MONOTYPE MECHANIC Furuncle of buttock ICD-680.5 Inactive Suzan Boo [...] Name ND Status Provider Patient Instruction NYSTATIN 534043 UNIT/GM CREA apply three times a day to yeast rash NYSTATIN 26671506209 Active Suzan Boo APRN Active AMITIZA 24 MCG ORAL CAPS one capsule twice daily LUBIPROSTONE 60383560013 Active Suzan Boo APRN Active MIRALAX ORAL POWD 17GMS DAILY IN WATER POLYETHYLENE GLYCOL 3350 79823476173 No Longer Active Suzan Boo APRN Active LACTULOSE 10 GM/15ML ORAL SOLN 30mL oral BID for IBS-C LACTULOSE 91053230414 No Longer Active Suzan Boo APRN Active BACTRIM DS 800-160 MG TAB Take one (1) tablet by mouth twice a day for 5 days TRIMETHOPRIM-SULFAMETHOXAZOLE 18309045115 No Longer Active Suzan Boo APRN Active MUPIROCIN 2 % OINT apply twice a day MUPIROCIN 35407940826 No Longer Active Suzan Boo APRN Active BACTRIM DS 800-160 MG TABS 1 twice a day SULFAMETHOXAZOLE-TRIMETHOPRIM 30679658092 No Longer Active Suzan Boo APRN Active DIFLUCAN 150 MG TABS 1 by mouth for yeast FLUCONAZOLE 50835818830 No Longer Active Suzan Boo APRN Active LINZESS 290 MCG ORAL CAPS 1 tab 30 min prior to first meal each day. LINACLOTIDE 10728234194 No Longer Active Sheila Calderon LPN Active AMITIZA 8 MCG ORAL CAPS 1 tab BID LUBIPROSTONE 34387455912 No Longer Active Lynda Xiao PHARMACY CASHIER Active TESSALON PERLES 100 MG CAPS 1 three times a day as needed for cough BENZONATATE 68362070387 No Longer Active Suzan Boo APRN Active BACTRIM DS 800-160 MG TABS 1 twice a day SULFAMETHOXAZOLE-TRIMETHOPRIM 90986008192 No Longer Active Suzan Boo APRN Active DIFLUCAN 150 MG TABS 1 by mouth for yeast FLUCONAZOLE 79316603496 No Longer Active Suzan Boo APRN Active EQ NICOTINE 21 MG/24HR TRANS PT24 Apply daily to stop smoking NICOTINE 99801461135 No Longer Active Suzan Boo APRN Active PREDNISONE 10 MG TABS 2 daily for 5 days then 1 daily for 5 days PREDNISONE 62428504341 No Longer Active Suzan Boo APRN Active LEVAQUIN 500 MG TABS 1 daily for infection LEVOFLOXACIN 83922113631 No Longer Active Suzan Boo APRN Active TROPICAMIDE 0.5 % OPHTH SOLN 1 drop PRN eye spasms TROPICAMIDE 69574029094 No Longer Active Suzan Boo APRN Active PREDNISONE 20 MG TAB 1 tablet daily x 4 days PREDNISONE 56138771640 No Longer Active Suzan Boo APRN Active ACETAMINOPHEN-CODEINE 120-12 MG/5ML SOLN 5 ml by mouth every 4-6 hours if needed for cough ACETAMINOPHEN-CODEINE 72687083691 No Longer Active Suzan Boo APRN Active KEFLEX 500 MG CAP 1 po qid CEPHALEXIN 16498956800 No Longer Active Suzan Boo APRN Active FLOVENT HFA 110 MCG/ACT AERO 2 puffs inhaled b.i.d. FLUTICASONE PROPIONATE HFA 76917988317 Active Renzo Thornton DO Active RISPERDAL 4 MG ORAL TABS 1 tab at bedtime RISPERIDONE 13384861398 Active Samantha Rothman RMA Active ZOFRAN 4 MG TABS 1 po q6hr PRN Nausea ONDANSETRON HCL No Longer Active Suzan Boo APRN Active FLUTICASONE PROPIONATE 50 MCG/ACT SUSP 2 sprays each nostril daily before bed. FLUTICASONE PROPIONATE 71625170814 No Longer Active Suzan Boo APRN Active ASPIRIN 325 MG ORAL TABS 1 tab q.d ASPIRIN 32278262407 No Longer Active Suzan Boo APRN Active HALOPERIDOL 10 MG ORAL TABS 1 tab q.d HALOPERIDOL 36091019405 No Longer Active Suzan Boo APRN Active GUAIFENESIN-CODEINE 100-10 MG/5ML SYRP 5ml every 4 to 6 hours as needed for cough GUAIFENESIN-CODEINE 87326551775 No Longer Active Suzan Boo APRN Active ZITHROMAX Z-EARNEST 250 MG TABS 2 today and then 1 daily for 4 days AZITHROMYCIN 22849312073 No Longer Active Suzan Boo APRN Active CLONAZEPAM 1 MG ORAL TABS 1 twice a day and an additional 1 tablet every other day as needed for pseudoseizures or anxiety CLONAZEPAM 36768197745 Active Suzan Boo APRN Active HYDROCODONE-ACETAMINOPHEN 5-325 MG ORAL TABS 1 tab two times a day HYDROCODONE-ACETAMINOPHEN 85739429010 No Longer Active Ahmet Carbajal MD Active LAMICTAL 100 MG ORAL TABS 1 tab 2 times qd. LAMOTRIGINE 72076681701 Active Ahmet Carbajal MD Active PREDNISONE 20 MG TABS 2 daily for 5 days then 1 daily for 5 days PREDNISONE 52229028623 No Longer Active Ahmet Carbajal MD Active FLUTICASONE PROPIONATE 50 MCG/ACT SUSP 1 to 2 sprays each nostril daily for allergies FLUTICASONE PROPIONATE 62310864354 Active Tila Valenzuela Active BENADRYL 25 MG CAP 4 po at bedtime for insomnia DIPHENHYDRAMINE HCL 55993795763 No Longer Active Ahmet Carbajal MD Active ADVAIR DISKUS 250-50 MCG/DOSE INH AEPB 1 puff twice a day for asthma FLUTICASONE-SALMETEROL 18734455527 No Longer Active Ahmet Carbajal MD Active KLONOPIN 1 MG ORAL TABS 1 tab po TID CLONAZEPAM 71751336714 No Longer Active Ahmet Carbajal MD Active ABILIFY MAINTENA 400 MG IM SUSR 400mg injection every 26 days ARIPIPRAZOLE 64320035228 No Longer Active Ahmet Carbajal MD Active TRAMADOL HCL 50 MG TABS 1/2-1 tab TID PRN TRAMADOL HCL 57157778016 No Longer Active Ahmet Carbajal MD Active BACTRIM DS 800-160 MG TABS 1 twice a day SULFAMETHOXAZOLE- TRIMETHOPRIM 07751499597 No Longer Active Ahmet Carbajal MD Active PROAIR HFA 108 (90 BASE) MCG/ACT AERS 2 puffs four times a day as needed 2015 ALBUTEROL SULFATE 65100986812 Active Honey Hinton MONOTYPE MECHANIC Active MONISTAT 7 COMBO PACK WOODROW 100 & 2 MG-% (9GM) VAG KIT 1 applicatorful per vagina q pm x 7 MICONAZOLE NITRATE 61561406739 No Longer Active Ahmet Carbajal MD Active FLAGYL 500 MG TAB 1 tablet by mouth bid METRONIDAZOLE 23412668393 No Longer Active Ahmet Carbajal MD Active OXYCODONE HCL ER 10 MG ORAL T12A 1/2 tab by mouth every 4 hours prn OXYCODONE HCL 11776719312 No Longer Active Ahmet Carbajal MD Active METHYLPREDNISOLONE 4 MG ORAL TABS po daily METHYLPREDNISOLONE 76885796106 No Longer Active Ahmet Carbajal MD Active LEVOFLOXACIN 500 MG ORAL TABS po daily LEVOFLOXACIN 46129927870 No Longer Active Ahmet Carbajal MD Active VIIBRYD 10 MG ORAL TABS Take 1 tablet once a day VILAZODONE HCL 72081721807 No Longer Active Ahmet Carbajal MD Active TOPAMAX 50 MG ORAL TABS 1 tab twice daily TOPIRAMATE 40665061485 No Longer Active Ahmet Carbajal MD Active DICLOFENAC SODIUM 50 MG TBEC 1 tablet by mouth four times daily PRN Pain 2015 DICLOFENAC SODIUM 78000268852 No Longer Active Ahmet Carbajal MD Active ADZENYS XR-ODT 6.3 MG ORAL TBED 1 tab po daily for ADHD AMPHETAMINE 57707551920 No Longer Active Ahmet Carbajal MD Active CHANTIX 1 MG TABS 1 twice a day to help quit smoking VARENICLINE TARTRATE 69047311415 No Longer Active Dipika Burgos MD Active CHANTIX STARTING MONTH EARNEST 0.5 MG X 11 & 1 MG X 42 TABS take as directed 2015 VARENICLINE TARTRATE 71904791841 No Longer Active Dipika Burgos MD Active TESSALON PERLES 100 MG CAP 1 to 2 tablets by mouth 3 times daily as needed for cough BENZONATATE 23555144907 No Longer Active Luigi Martínez APRN Active IMITREX 50 MG ORAL TABS 0.5 po x 1 PRN Headache. May repeat dose x 1 in 2 hours if needed SUMATRIPTAN SUCCINATE 37195469791 Active TAMARA Casey Active HYDROCODONE-ACETAMINOPHEN 5-325 MG TABS 1 to 2 four times a day as needed for pain use until can be seen by specialist HYDROCODONE- ACETAMINOPHEN 00943221343 No Longer Active Vishal Hui MD Active PROAIR HFA 108 (90 BASE) MCG/ACT AERS 2 puffs four times a day as needed 2015 ALBUTEROL SULFATE 80754119966 No Longer Active Vishal Hui MD Active PREDNISONE 20 MG TABS 2 daily for 5 days then 1 daily for 5 days PREDNISONE 11025647253 No Longer Active Vishal Hui MD Active ZITHROMAX Z-EARNEST 250 MG TABS 2 today and then 1 daily for 4 days AZITHROMYCIN 83474536538 No Longer Active Vishal Hui MD Active DICLOFENAC POTASSIUM TABS Take 1 tablet twice a day (pt. is not sure of the dose.) DICLOFENAC POTASSIUM TABS 74783147740 No Longer Active Vishal Hui MD Active VERAPAMIL HCL ER 120 MG ORAL CR-TABS Take 1 tablet by mouth twice a day. VERAPAMIL HCL 33298574249 Active Vishal Hui MD Active FLAGYL 500 MG TAB 1 tablet by mouth bid METRONIDAZOLE 96912531382 No Longer Active Vishal Hui MD Active VALIUM 5 MG TAB Take 1-2 tablets daily DIAZEPAM 31204604644 No Longer Active Fabiola Johnson APRN Active METOPROLOL TARTRATE 25 MG ORAL TABS 1/2 tablet twice daily for heart rate and blood pressure METOPROLOL TARTRATE 07524061222 No Longer Active Fabiola Johnson APRN Active MIRALAX PACK 1 po qd PRN Constipation POLYETHYLENE GLYCOL 3350 24450784725 No Longer Active Ahmet Carbajal MD Active MINIPRESS 2 MG CAPS 4 cap po at night PRAZOSIN HCL 67833827215 No Longer Active Ahmet Carbajal MD Active PIROXICAM 20 MG CAPS 1 cap po qd PRN Pain PIROXICAM 64947617705 No Longer Active Ahmet Carbajal MD Active TRAMADOL HCL 50 MG TABS 1-2 po TID PRN Pain TRAMADOL HCL 73654505564 No Longer Active Ahmet Carbajal MD Active METOPROLOL TARTRATE 50 MG TAB 1 po bid METOPROLOL TARTRATE 13658153427 No Longer Active Ahmet Carbajal MD Active ABILIFY 15 MG ORAL TABS 1 tab daily ARIPIPRAZOLE 12509225743 No Longer Active Ahmet Carbajal MD Active PROZAC 20 MG ORAL CAPS 1 tab daily FLUOXETINE HCL 78151358366 No Longer Active Ahmet Carbajal MD Active AMBIEN 5 MG ORAL TABS 1 tab at bedtime ZOLPIDEM TARTRATE 13289449204 No Longer Active Ahmet Carbajal MD Active PREDNISONE 20 MG TAB 2 tabs daily for 4 days, 1 tab daily for 4 days, 1/2 tab daily for 4 days PREDNISONE 55076641437 No Longer Active Ahmet Carbajal MD Active KEFLEX 500 MG CAP 1 po TID x 10 days CEPHALEXIN 11933487798 No Longer Active Vishal Hui MD Active SAPHRIS 5 MG SUBL 1 po bid ASENAPINE MALEATE 44215913821 No Longer Active Luigi aMrtínez APRN Active LATUDA 80 MG TABS Take one by mouth daily LURASIDONE HCL 33565834081 No Longer Active Jillina Fralebron MONOTYPE MECHANIC Active AMLODIPINE BESYLATE 5 MG TABS 1 tablet by mouth daily AMLODIPINE BESYLATE 92007514108 No Longer Active Jillina Fralebron MONOTYPE MECHANIC Active AMITRIPTYLINE HCL 100 MG TAB one at hs AMITRIPTYLINE HCL 43958077099 No Longer Active Vishal Hui MD Active TRAZODONE HCL 100 MG TAB take 1 at bedtime TRAZODONE HCL 03331639282 No Longer Active Vishal Hui MD Active VYVANSE 40 MG CAPS 1 daily, LISDEXAMFETAMINE DIMESYLATE 04392952912 No Longer Active Vishal Hui MD Active IBUPROFEN 600 MG TAB 1 po TID PRN IBUPROFEN 03068227060 No Longer Active Vishal Hui MD Active PROZAC 20 MG CAP Take one by mouth daily FLUOXETINE HCL 53461823615 No Longer Active Vishal Hui MD Active BACTRIM DS 800-160 MG TABS 1 pill by mouth twice daily SULFAMETHOXAZOLE-TRIMETHOPRIM 19702630302 No Longer Active Sahara Rodriguez MD PhD Active DIFLUCAN 150 MG TAB 1 tablet by mouth daily FLUCONAZOLE 05265934646 No Longer Active Vishal Hui MD Active TIZANIDINE HCL 4 MG TABS 1 po q6hr PRN Muscle Spasm/Back Pain TIZANIDINE HCL 17399842472 Active TAMARA Casey Active CLINDAMYCIN HCL 150 MG CAPS 1 four times a day CLINDAMYCIN HCL 72227619285 No Longer Active Neeraj Collins MD Active KEFLEX 500 MG ORAL CAPS 1 cap QID by mouth CEPHALEXIN 08616625790 No Longer Active Neeraj Collins MD Active DIFLUCAN 150 MG TABS 1 pill every other day x 2 doses FLUCONAZOLE 99761854209 No Longer Active Sahara Rodriguez MD PhD Active MELATONIN 3 MG CAPS 2 po q hs MELATONIN 23894008965 No Longer Active Sahara Rodriguez MD PhD Active MULTIVITAMINS CAPS Take one by mouth daily MULTIPLE VITAMIN 05329206342 No Longer Active Sahara Rodriguez MD PhD Active BACTRIM DS 800-160 MG TAB 1 tab by mouth twice daily TRIMETHOPRIM-SULFAMETHOXAZOLE 82254965423 No Longer Active Sahara Rodriguez MD PhD Active [facility] PROBIOTIC ORAL CHEW 2 daily po PROBIOTIC PRODUCT 67832147097 No Longer Active Sahara Rodriguez MD PhD Active BACTRIM DS 800-160 MG TABS 1 po BID x 7 days SULFAMETHOXAZOLE-TRIMETHOPRIM 78839972775 No Longer Active Vishal Hui MD Active CHANTIX STARTING MONTH EARNEST 0.5 MG X 11 & 1 MG X 42 TABS 0.5mg daily for 3 days , then 0.5mg BID for 4 days, then 1mg BID VARENICLINE TARTRATE 71994737116 No Longer Active TAMARA Gray Active VERAPAMIL HCL CR 120 MG TAB CR 1 po bid VERAPAMIL HCL 96771074463 No Longer Active Vishal Hui MD Active METOPROLOL SUCCINATE 50 MG TB24 1 tablet by mouth daily METOPROLOL SUCCINATE 37451847968 No Longer Active Vishal Hui MD Active SAPHRIS 10 MG SUBL 1 tab po bid ASENAPINE MALEATE 11733022831 No Longer Active Vishal Hui MD Active LISINOPRIL 20 MG TABS 1 tab po qd LISINOPRIL 35847812752 No Longer Active Vishal Hui MD Active LATUDA 20 MG TABS Take one by mouth daily LURASIDONE HCL 46933071917 No Longer Active Vishal Hui MD Active TRAZODONE HCL 50 MG TABS 1/2 tab po qd prn for anxiety TRAZODONE HCL 38358003199 No Longer Active Vishal Hui MD Active OMEPRAZOLE 20 MG TBEC 1 po q a.m. 30min prior to first food intake OMEPRAZOLE 07586020768 Active TAMARA Casey Active RANITIDINE HCL 150 MG CAPS 1 twice a day RANITIDINE HCL 06584629921 Active Lynda Madl PHARMACY CASHIER Active LINZESS 290 MCG CAPS Take one by mouth daily LINACLOTIDE 97077875811 No Longer Active Vishal Hui MD Active SAPHRIS 5 MG SUBL 1 tab po qd ASENAPINE MALEATE 54983582045 No Longer Active Vishal Hui MD Active ZALEPLON 10 MG CAPS 1 cap po every other night ZALEPLON 41328230032 No Longer Active Vishal Hui MD Active LYRICA 50 MG CAPS 1 tab po TID PREGABALIN 12155344531 No Longer Active Vishal Hui MD Active LORATADINE 10 MG TABS 1 tab po qd LORATADINE 84856804103 No Longer Active Vishal Hui MD Active VERAPAMIL HCL ER 180 MG CR-TABS 1 tab po bid VERAPAMIL HCL 05300616265 No Longer Active Vishal Hui MD Active MIRALAX POWD 1 capfull once daily POLYETHYLENE GLYCOL 3350 25440238524 No Longer Active Vishal Hui MD Active PREDNISONE 20 MG TABS 1 tab po qd PREDNISONE 91181224703 No Longer Active Renzo Thornton DO Active LEVOFLOXACIN 500 MG TABS 1 tab po qd LEVOFLOXACIN 74844786904 No Longer Active Renzo Thornton DO Active BUSPIRONE HCL 15 MG TABS 1 tab po TID BUSPIRONE HCL 59115502407 No Longer Active Renzo Thornton DO Active BENZTROPINE MESYLATE 1 MG TABS 1 tab po qd BENZTROPINE MESYLATE 36337865786 No Longer Active Renzo Thornton DO Active ATENOLOL 25 MG TABS 1 tab po qd ATENOLOL 52891275510 No Longer Active Renzo Thornton DO Active ESCITALOPRAM OXALATE 20 MG TABS 1 tab po qd ESCITALOPRAM OXALATE 72938192671 No Longer Active Renzo Thornton DO Active ADVAIR DISKUS 250-50 MCG/DOSE AEPB 1 puff BID FLUTICASONE-SALMETEROL 29380003118 No Longer Active Renzo Thornton DO Active PREDNISONE 20 MG TAB 2 tabs daily for 3 days, 1 tab daily for 3 days, 1/2 tab daily for 2 days PREDNISONE 44924026609 No Longer Active Vishal Hui MD Active CEFDINIR 300 MG CAPS by mouth twice a day CEFDINIR 81662308124 No Longer Active Vishal Hui MD Active LANSOPRAZOLE 30 MG CPDR 1 cap po qd LANSOPRAZOLE 05280710664 No Longer Active Vishal Hui MD Active BACLOFEN 20 MG TABS 1 tab po tid BACLOFEN 50384482460 No Longer Active Vishal Hui MD Active ADVAIR DISKUS 250-50 MCG/DOSE AEPB 1 puff BID ADVAIR DISKUS 250-50 MCG/DOSE AEPB FLUTICASONE-SALMETEROL Inactive ESCITALOPRAM OXALATE 20 MG TABS 1 tab po qd ESCITALOPRAM OXALATE 20 MG TABS 896095 ESCITALOPRAM OXALATE Inactive ATENOLOL 25 MG TABS 1 tab po qd ATENOLOL 25 MG TABS 873003 ATENOLOL Inactive BENZTROPINE MESYLATE 1 MG TABS 1 tab po qd BENZTROPINE MESYLATE 1 MG TABS 811471 BENZTROPINE MESYLATE Inactive BUSPIRONE HCL 15 MG TABS 1 tab po TID BUSPIRONE HCL 15 MG TABS 619377 BUSPIRONE HCL Inactive LEVOFLOXACIN 500 MG TABS 1 tab po qd LEVOFLOXACIN 500 MG TABS 602141 LEVOFLOXACIN Inactive PREDNISONE 20 MG TABS 1 tab po qd PREDNISONE 20 MG TABS 687772 PREDNISONE Inactive MIRALAX POWD 1 capfull once daily MIRALAX POWD 660757 POLYETHYLENE GLYCOL 3350 Inactive VERAPAMIL HCL ER 180 MG CR-TABS 1 tab po bid VERAPAMIL HCL ER 180 MG CR-TABS VERAPAMIL HCL Inactive LORATADINE 10 MG TABS 1 tab po qd LORATADINE 10 MG TABS 873527 LORATADINE Inactive LYRICA 50 MG CAPS 1 tab po TID LYRICA 50 MG CAPS PREGABALIN Inactive ZALEPLON 10 MG CAPS 1 cap po every other night ZALEPLON 10 MG CAPS 732335 ZALEPLON Inactive SAPHRIS 5 MG SUBL 1 tab po qd SAPHRIS 5 MG SUBL ASENAPINE MALEATE Inactive TRAZODONE HCL 50 MG TABS 1/2 tab po qd prn for anxiety TRAZODONE HCL 50 MG TABS 887125 TRAZODONE HCL Inactive LATUDA 20 MG TABS Take one by mouth daily LATUDA 20 MG TABS LURASIDONE HCL Inactive LISINOPRIL 20 MG TABS 1 tab po qd LISINOPRIL 20 MG TABS 735582 LISINOPRIL Inactive SAPHRIS 10 MG SUBL 1 [...] twice daily BACTRIM DS 800-160 MG TAB 758685 TRIMETHOPRIM-SULFAMETHOXAZOLE Inactive MULTIVITAMINS CAPS Take one by mouth daily MULTIVITAMINS CAPS MULTIPLE VITAMIN Inactive MELATONIN 3 MG CAPS 2 po q hs MELATONIN 3 MG CAPS 023762 MELATONIN Inactive KEFLEX 500 MG ORAL CAPS 1 cap QID by mouth KEFLEX 500 MG ORAL CAPS 494554 CEPHALEXIN Inactive CLINDAMYCIN HCL 150 MG CAPS 1 four times a day CLINDAMYCIN HCL 150 MG CAPS 163858 CLINDAMYCIN HCL Inactive DIFLUCAN 150 MG TAB 1 tablet by mouth daily DIFLUCAN 150 MG TAB 491673 FLUCONAZOLE Inactive PROZAC 20 MG CAP Take one by mouth daily PROZAC 20 MG CAP 489676 FLUOXETINE HCL Inactive IBUPROFEN 600 MG TAB 1 po TID PRN IBUPROFEN 600 MG TAB 919306 IBUPROFEN Inactive VYVANSE 40 MG CAPS 1 daily, VYVANSE 40 MG CAPS LISDEXAMFETAMINE DIMESYLATE Inactive TRAZODONE HCL 100 MG TAB take 1 at bedtime TRAZODONE HCL 100 MG TAB 273166 TRAZODONE HCL Inactive AMITRIPTYLINE HCL 100 MG TAB one at hs AMITRIPTYLINE HCL 100 MG TAB 758904 AMITRIPTYLINE HCL Inactive AMLODIPINE BESYLATE 5 MG TABS 1 tablet by mouth daily AMLODIPINE BESYLATE 5 MG TABS 238574 AMLODIPINE BESYLATE Inactive LATUDA 80 MG TABS Take one by mouth daily LATUDA 80 MG TABS LURASIDONE HCL Inactive SAPHRIS 5 MG SUBL 1 po bid SAPHRIS 5 MG SUBL ASENAPINE MALEATE Inactive PREDNISONE 20 MG TAB 2 tabs daily for 4 days, 1 tab daily for 4 days, 1/2 tab daily for 4 days PREDNISONE 20 MG TAB 426324 PREDNISONE Inactive AMBIEN 5 MG ORAL TABS 1 tab at bedtime AMBIEN 5 MG ORAL TABS 093960 ZOLPIDEM TARTRATE Inactive PROZAC 20 MG ORAL CAPS 1 tab daily PROZAC 20 MG ORAL CAPS 298966 FLUOXETINE HCL Inactive ABILIFY 15 MG ORAL TABS 1 tab daily ABILIFY 15 MG ORAL TABS 038494 ARIPIPRAZOLE Inactive METOPROLOL TARTRATE 50 MG TAB 1 po bid METOPROLOL TARTRATE 50 MG TAB 802646 METOPROLOL TARTRATE Inactive TRAMADOL HCL 50 MG TABS 1-2 po TID PRN Pain TRAMADOL HCL 50 MG TABS 350584 TRAMADOL HCL Inactive PIROXICAM 20 MG CAPS 1 cap po qd PRN Pain PIROXICAM 20 MG CAPS 790892 PIROXICAM Inactive MINIPRESS 2 MG CAPS 4 cap po at night MINIPRESS 2 MG CAPS 968405 PRAZOSIN HCL Inactive MIRALAX PACK 1 po qd PRN Constipation MIRALAX PACK 854998 POLYETHYLENE GLYCOL 3350 Inactive METOPROLOL TARTRATE 25 MG ORAL TABS 1/2 tablet twice daily for heart rate and blood pressure METOPROLOL TARTRATE 25 MG ORAL TABS 382172 METOPROLOL TARTRATE Inactive VALIUM 5 MG TAB Take 1-2 tablets daily VALIUM 5 MG TAB 075005 DIAZEPAM Inactive FLAGYL 500 MG TAB 1 tablet by mouth bid FLAGYL 500 MG TAB 135612 METRONIDAZOLE Inactive DICLOFENAC POTASSIUM TABS Take 1 tablet twice a day (pt. is not sure of the dose.) DICLOFENAC POTASSIUM TABS DICLOFENAC POTASSIUM TABS Inactive ZITHROMAX Z-EARNEST 250 MG TABS 2 today and then 1 daily for 4 days ZITHROMAX Z-EARNEST 250 MG TABS 5600875 AZITHROMYCIN Inactive PREDNISONE 20 MG TABS 2 daily for 5 days then 1 daily for 5 days PREDNISONE 20 MG TABS 044022 PREDNISONE Inactive PROAIR HFA 108 (90 BASE) MCG/ACT AERS 2 puffs four times a day as needed 2015 PROAIR HFA 108 (90 BASE) MCG/ACT AERS ALBUTEROL SULFATE Inactive HYDROCODONE-ACETAMINOPHEN 5-325 MG TABS 1 to 2 four times a day as needed for pain use until can be seen by specialist HYDROCODONE- ACETAMINOPHEN 5-325 MG TABS 083710 HYDROCODONE-ACETAMINOPHEN Inactive TESSALON PERLES 100 MG CAP 1 to 2 tablets by mouth 3 times daily as needed for cough TESSALON PERLES 100 MG CAP 164107 BENZONATATE Inactive CHANTIX STARTING MONTH EARNEST 0.5 [...] Pain 2015 DICLOFENAC SODIUM 50 MG TBEC 566973 DICLOFENAC SODIUM Inactive TOPAMAX 50 MG ORAL TABS 1 tab twice daily TOPAMAX 50 MG ORAL TABS 342085 TOPIRAMATE Inactive VIIBRYD 10 MG ORAL TABS Take 1 tablet once a day VIIBRYD 10 MG ORAL TABS VILAZODONE HCL Inactive LEVOFLOXACIN 500 MG ORAL TABS po daily LEVOFLOXACIN 500 MG ORAL TABS 265265 LEVOFLOXACIN Inactive METHYLPREDNISOLONE 4 MG ORAL TABS po daily METHYLPREDNISOLONE 4 MG ORAL TABS 152706 METHYLPREDNISOLONE Inactive OXYCODONE HCL ER 10 MG ORAL T12A 1/2 tab by mouth every 4 hours prn OXYCODONE HCL ER 10 MG ORAL T12A OXYCODONE HCL Inactive FLAGYL 500 MG TAB 1 tablet by mouth bid FLAGYL 500 MG TAB 139793 METRONIDAZOLE Inactive MONISTAT 7 COMBO PACK WOODROW 100 & 2 MG-% (9GM) VAG KIT 1 applicatorful per vagina q pm x 7 MONISTAT 7 COMBO PACK WOODROW 100 & 2 MG-% (9GM) VAG KIT MICONAZOLE NITRATE Inactive BACTRIM DS 800-160 MG TABS 1 twice a day BACTRIM DS 800-160 MG TABS 686024 SULFAMETHOXAZOLE-TRIMETHOPRIM Inactive TRAMADOL HCL 50 MG TABS 1/2-1 tab TID PRN TRAMADOL HCL 50 MG TABS 652646 TRAMADOL HCL Inactive ABILIFY MAINTENA 400 MG IM SUSR 400mg injection every 26 days ABILIFY MAINTENA 400 MG IM SUSR ARIPIPRAZOLE Inactive KLONOPIN 1 MG ORAL TABS 1 tab po TID KLONOPIN 1 MG ORAL TABS 997846 CLONAZEPAM Inactive ADVAIR DISKUS 250-50 MCG/DOSE INH AEPB 1 puff twice a day for asthma ADVAIR DISKUS 250-50 MCG/DOSE INH AEPB FLUTICASONE- SALMETEROL Inactive BENADRYL 25 MG CAP 4 po at bedtime for insomnia BENADRYL 25 MG CAP DIPHENHYDRAMINE HCL Inactive PREDNISONE 20 MG TABS 2 daily for 5 days then 1 daily for 5 days PREDNISONE 20 MG TABS 083443 PREDNISONE Inactive HYDROCODONE-ACETAMINOPHEN 5-325 MG ORAL TABS 1 tab two times a day HYDROCODONE-ACETAMINOPHEN 5-325 MG ORAL TABS 538534 HYDROCODONE-ACETAMINOPHEN Inactive ZITHROMAX Z-EARNEST 250 MG TABS 2 today and then 1 daily for 4 days ZITHROMAX Z-EARNEST 250 MG TABS 5439692 AZITHROMYCIN Inactive GUAIFENESIN-CODEINE 100-10 MG/5ML SYRP 5ml every 4 to 6 hours as needed for cough GUAIFENESIN-CODEINE 100-10 MG/5ML SYRP 355806 GUAIFENESIN-CODEINE Inactive HALOPERIDOL 10 MG ORAL TABS 1 tab q.d HALOPERIDOL 10 MG ORAL TABS 004967 HALOPERIDOL Inactive ASPIRIN 325 MG ORAL TABS 1 tab q.d ASPIRIN 325 MG ORAL TABS [id number] ASPIRIN Inactive FLUTICASONE PROPIONATE 50 MCG/ACT SUSP 2 sprays each nostril daily before bed. FLUTICASONE PROPIONATE 50 MCG/ACT SUSP [id number] FLUTICASONE PROPIONATE Inactive ZOFRAN 4 MG TABS 1 po q6hr PRN Nausea ZOFRAN 4 MG TABS [id number] ONDANSETRON HCL Inactive KEFLEX 500 MG CAP 1 po qid KEFLEX 500 MG CAP 123789 CEPHALEXIN Inactive ACETAMINOPHEN-CODEINE 120-12 MG/5ML SOLN 5 ml by mouth every 4-6 hours if needed for cough ACETAMINOPHEN-CODEINE 120-12 MG/5ML SOLN [id number] ACETAMINOPHEN-CODEINE Inactive PREDNISONE 20 MG TAB 1 tablet daily x 4 days PREDNISONE 20 MG TAB [id number] PREDNISONE Inactive TROPICAMIDE 0.5 % OPHTH SOLN 1 drop PRN eye spasms TROPICAMIDE 0.5 % OPHTH SOLN 762715 TROPICAMIDE Inactive LEVAQUIN 500 MG TABS 1 daily for infection LEVAQUIN 500 MG TABS [id number] LEVOFLOXACIN Inactive PREDNISONE 10 MG TABS 2 daily for 5 days then 1 daily for 5 days PREDNISONE 10 MG TABS 544277 PREDNISONE Inactive EQ NICOTINE 21 MG/24HR TRANS [...] for cough TESSALON PERLES 100 MG CAPS 908473 BENZONATATE Inactive AMITIZA 8 MCG ORAL CAPS [...] twice a day MUPIROCIN 2 % OINT 255976 MUPIROCIN Inactive BACTRIM DS 800-160 MG TAB Take one (1) tablet by mouth twice a day for 5 days BACTRIM DS 800-160 MG TAB [id number] TRIMETHOPRIM- SULFAMETHOXAZOLE Inactive LACTULOSE 10 GM/15ML ORAL SOLN 30mL oral BID for IBS-C LACTULOSE 10 GM/15ML ORAL SOLN 576955 LACTULOSE Inactive MIRALAX ORAL POWD 17GMS DAILY IN WATER MIRALAX ORAL POWD 352188 POLYETHYLENE GLYCOL 3350 Inactive CEFDINIR 300 MG CAPS by mouth twice a day CEFDINIR 300 MG CAPS 018173 CEFDINIR Inactive PREDNISONE 20 MG TAB 2 tabs daily for 3 days, 1 tab daily for 3 days, 1/2 tab daily for 2 days PREDNISONE 20 MG TAB 547312 PREDNISONE Inactive BACTRIM DS 800-160 MG TABS 1 po BID x 7 days BACTRIM DS 800-160 MG TABS 19820521 SULFAMETHOXAZOLE-TRIMETHOPRIM Inactive DIFLUCAN 150 MG TABS 1 pill every other day x 2 doses DIFLUCAN 150 MG TABS 638993 FLUCONAZOLE Inactive BACTRIM DS 800-160 MG TABS 1 pill by mouth twice daily BACTRIM DS 800-160 MG TABS 19820521 SULFAMETHOXAZOLE-TRIMETHOPRIM Inactive KEFLEX 500 MG CAP 1 po TID x 10 days KEFLEX 500 MG CAP 658696 CEPHALEXIN Inactive Advance Directives Directive Description Start [...] % 11.0-15.0 platelet count 443 THOUSAND/UL 10*3/mm3 027-537 6947/03/01 mean platelet volume 8.2 fL 7.5-12.5 leukocyte [...] % 11.0-15.0 platelet count 349 THOUSAND/UL 10*3/mm3 226-378 3863/04/12 mean platelet volume 8.4 fL 7.5-12.5 Lab [...] % 11.6-14.8 platelet count 369 10^3/MM^3 10*3/mm3 060-827 5551/12/21 leukocyte count, blood 11.1 10^3/MM^3 10*3/mm3 4.6-10.2 Lab Report: Chlamydia/GC APTIMA/23538 - Lab chlamydia DNA probe NOT DETECTED NOT DETECTED Lab Report: Chlamydia/GC APTIMA/84018 - Microbiology Neisseria gonorrhoeae DNA probe NOT DETECTED NOT DETECTED Lab Report: Chlamydia/GC APTIMA/52859, Urinalysis, Complete, with Reflex ... - Lab chlamydia DNA probe NOT DETECTED NOT DETECTED Lab Report: Chlamydia/GC APTIMA/15248, Urinalysis, Complete, with Reflex ... - Microbiology Neisseria gonorrhoeae DNA probe NOT DETECTED NOT DETECTED Lab Report: Chlamydia/GC APTIMA/84204, Urinalysis, Complete, with Reflex ... - Urinalysis microalbumin/total urine volume 2 mg/L Units converted. See lab report for original value. microalbumin/creatinine ratio, urine 9 MCG/MG CREAT mg/L <30 Lab Report: Comp. Metabolic Panel - Chemistry blood glucose 80 mg/dL 65-110 chloride, serum 103 mmol/L 98-107 potassium, serum 5.0 mmol/L 3.5-5.2 carbon dioxide, venous blood 33.7 mmol/L 21.0-32.0 sodium, serum 140 mmol/L 530-975 4175/08/08 urea nitrogen, blood 13 mg/dL 7-18 creatinine, serum 0.88 mg/dL 0.55-1.30 alanine aminotransferase (SGPT), serum 54 U/L 12-78 aspartate aminotransferase (SGOT), serum 29 U/L 15-37 calcium, serum 9.7 mg/dL 8.5-10.1 bilirubin, serum, total 0.30 mg/dL 0.00-1.00 sodium, serum 140 mmol/L 341-714 8429/06/28 carbon dioxide, venous blood 23.8 mmol/L 21.0-32.0 [...] 5.0-8.5 Encounters Code Encounter Date Provider Facility CPT-81633 Level 3 Est. Patient 11:08:35 [facility] Level 3 Est. Patient 15:55:20 CDT [facility]an [facility] CPT-19624 Level 4 Est. Patient 10:49:34 CDT [facility] CPT-81049 Level 3 Est. Patient 10:00:25 CDT Suzan [facility] CPT-89767 Level 3 Est. Patient 10:29:30 CDT Suzan Boo [facility] CPT-84606 Level 3 Est. Patient 11:04:38 CDT Renzo Thornton -12136 Level 3 Est. Patient 11:15:58 MANAGER COMPLIANCE [facility]zo Bar[facility] CPT-84297 Level 3 Est. Patient 15:28:23 MANAGER COMPLIANCE Suzan Boo [facility] CPT-75651 Level 4 Est. Patient 10:20:54 MANAGER COMPLIANCE Suzan Boo [facility]-08078 Level 3 Est. Patient 11:47:37 MANAGER COMPLIANCE Ahmet Carbajal MD [facility] CPT-79479 Level 3 Est. Patient 10:40:11 MANAGER COMPLIANCE Ahmet Carbajal MD [facility]-99346 Level 3 Est. Patient 15:07:06 MANAGER COMPLIANCE Neeraj Collins MD [facility] CPT-34095 Level 4 Est. Patient 14:45:00 MANAGER COMPLIANCE Ahmet Carbajal MD [facility] CPT-32985 Level 3 Est. Patient 13:59:59 CDT Luigi Martínez [facility] CPT-12377 Level 3 Est. Patient 18:18:53 CDT Neeraj Collins MD [facility] CPT-46342 Level 3 Est. Patient 15:50:44 CDT Vishal Hui MD [facility] CPT-26502 Level 3 Est. Patient 11:36:17 CDT Ahmet Carbajal MD [facility]-12507 Level 3 Est. Patient 13:29:16 CDT Vishal Hui MD [facility] CPT-32597 Level 3 Est. Patient 14:27:52 CDT Neeraj Collins MD [facility] CPT-57765 Level 3 Est. Patient 08:56:03 CDT Luigi Martínez [facility] CPT-91283 Level 4 Est. Patient 12:11:48 CDT Fabiola Johnson [facility] CPT-83565 Level 3 New Patient 16:53:37 CDT Albert Caldera MD [facility] CPT-48865 Level 3 Est. Patient 11:25:49 CDT Renzo Thornton DO [facility] CPT-37933 Level 3 Est. Patient 15:22:01 CDT Ahmet Carbajal MD [facility] CPT-68452 Level 4 Est. Patient 09:00:51 MANAGER COMPLIANCE Vishal Hui MD [facility] CPT-76515 Level 3 Est. Patient 11:37:33 MANAGER COMPLIANCE Vishal Hui MD [facility] CPT-54024 Level 3 Est. Patient 08:41:09 MANAGER COMPLIANCE Vishal Hui MD [facility] CPT-55441 Level 4 Est. Patient 10:19:35 MANAGER COMPLIANCE Vishal Hui MD [facility] CPT-89653 Level 3 Est. Patient 13:35:45 CDT Vishal Hui MD [facility] CPT-94679 Level 4 Est. Patient 10:08:37 CDT Vishal Hui MD [facility] CPT-20164 Level 3 Est. Patient 11:22:10 CDT Vishal Hui MD [facility] CPT-66630 Level 3 Est. Patient 11:03:32 CDT Sahara Rodriguez MD PhD [facility] CPT-77448 Level 3 Est. Patient 09:41:35 CDT Vishal Hui MD [facility] CPT-99788 Level 3 Est. Patient 12:00:41 CDT Neeraj Collins MD [facility] CPT-90839 Level 3 Est. Patient 09:16:24 CDT Vishal Hui MD [facility] CPT-94925 Level 4 Est. Patient 13:59:09 CDT Neeraj Collins MD [facility] CPT-12563 Level 3 Est. Patient 15:19:43 CDT Renzo Thornton [facility] CPT-00281 Level 3 Est. Patient 18:10:26 CDT Sahara Rodriguez MD PhD [facility] CPT-14680 Level 3 Est. Patient 14:49:50 CDT Vishal Hui MD [facility] CPT-22870 Level 4 Est. Patient 18:41:46 CDT Neeraj Collins MD [facility] CPT-38123 Level 4 Est. Patient 09:18:38 MANAGER COMPLIANCE Vishal Hui MD [facility] CPT-17228 Level 3 Est. Patient 14:43:55 MANAGER COMPLIANCE Vishal Hui MD [facility] CPT-01690 Level 3 Est. Patient 15:26:33 MANAGER COMPLIANCE Sahara Rodriguez MD PhD [facility] CPT-87636 Level 3 Est. Patient 10:32:14 MANAGER COMPLIANCE Vishal Hui MD [facility] CPT-85215 Level 3 Est. Patient 15:12:52 MANAGER COMPLIANCE Vishal Hui MD [facility] CPT-41871 Level 4 Est. Patient 09:19:27 CDT Vishal Hui MD [facility] CPT-76947 Level 3 Est. Patient 15:53:00 CDT Renzo Thornton [facility] CPT-59818 Level 3 Est. Patient 15:50:30 CDT Renzo Thornton [facility] CPT-80252 Level 3 Est. Patient 16:55:24 CDT Vishal Hui MD [facility] Procedures Code Procedure Name Date Entry Date Standard Description CPT-19890 EKG Trac and Interp - XRAY USE ONLY 15:59:30 CDT 09/13 CPT-91850 Chest 1V Frontal - XRAY USE ONLY 15:59:30 CDT CPT-83285 Venipuncture Draw Fee 15:44:02 CDT CPT-84708 Venipuncture Draw Fee 08:41:12 CDT CPT-32104 Abd compl w upright - XRAY USE ONLY 10:27:59 CDT 06/28 CPT-14691 Smoking Cessation counseling 11:15:58 MANAGER COMPLIANCE CPT-G0439 [facility] Annual Wellness Exam 09:30:58 MANAGER COMPLIANCE CPT-27322 TSH - LAB USE ONLY 08:50:26 MANAGER COMPLIANCE CPT-00209 CBC - LAB USE ONLY 08:50:26 MANAGER COMPLIANCE CPT-07222 Venipuncture Draw Fee 08:50:26 MANAGER COMPLIANCE CPT-44276 Abx/Therapy Injection 17:34:30 MANAGER COMPLIANCE CPT-50649 Nexplanon Removal with Reinsertion 14:09:32 CDT CPT-J7307 Nexplanon (Implant) 14:09:32 CDT CPT-OV Office Visit 14:09:32 CDT CPT-79225 UA w micro - LAB USE ONLY 16:21:13 CDT CPT-15866 Wet Mount - LAB USE ONLY 16:21:13 CDT CPT-27365 First Vx - Ix admin for Medicare patients 14:37:47 CDT CPT-44589 Fluzone Preservative Free Intramuscular Suspension 14:37 :47 CDT CPT-87004 Abx/Therapy Injection 13:54:22 CDT CPT-16929 Abx/Therapy Injection 08:47:09 CDT CPT-03805 Abx/Therapy Injection 13:29:56 CDT CPT-94750 Abx/Therapy Injection 08:36:16 CDT CPT-46854 Wet Mount - LAB USE ONLY 17:44:58 CDT CPT-84779 UA w micro - LAB USE ONLY 17:44:58 CDT CPT-99568 CMP - LAB USE ONLY 17:44:58 CDT CPT-66204 Venipuncture Draw Fee 17:44:58 CDT CPT-37845 Cervical Min 4V - XRAY USE ONLY 09:01:40 CDT CPT-32638 Chest 2V Frontal and Lat - XRAY USE ONLY 11:06:31 CDT CPT-66564 EKG Trac and Interp - XRAY USE ONLY 11:31:43 CDT 08/26 CPT-J3420 Vitamin B12 1000mcg (Cyanocobalamin) 08:10:26 MANAGER COMPLIANCE 04/12 CPT-66388 Abx/Therapy Injection 08:10:26 MANAGER COMPLIANCE CPT-G0438 Initial Annual Wellness Exam 19:01:01 MANAGER COMPLIANCE CPT-J3420 Vitamin B12 1000mcg (Cyanocobalamin) 16:57:46 CDT 08/14 CPT-63744 Recombivax HB Injection Suspension 5 MCG/0.5ML 08:37:50 MANAGER COMPLIANCE CPT-40516 Immunization Single Admin 08:37:50 MANAGER COMPLIANCE CPT-J3420 Vitamin B12 1000mcg (Cyanocobalamin) 08:32:16 MANAGER COMPLIANCE 03/11 CPT-68328 Abx/Therapy Injection 08:32:16 MANAGER COMPLIANCE CPT-82699 Chest 2V Frontal and Lat 11:46:38 MANAGER COMPLIANCE CPT-28956 Venipuncture Draw Fee 09:12:45 MANAGER COMPLIANCE CPT-J3420 Vitamin B12 1000mcg (Cyanocobalamin) 08:50:15 MANAGER COMPLIANCE 02/08 CPT-78158 Abx/Therapy Injection 08:50:15 MANAGER COMPLIANCE CPT-Cryo Cryotherapy 10:19:35 MANAGER COMPLIANCE CPT-000 Give Appropriate Flu Vaccine 09:22:16 CDT CPT-J3420 Vitamin B12 1000mcg (Cyanocobalamin) 19:08:57 CDT 01/11 CPT-89462 Abx/Therapy Injection 19:08:57 CDT CPT-J3420 Vitamin B12 1000mcg (Cyanocobalamin) 08:19:08 CDT 12/11 CPT-72746 Abx/Therapy Injection 08:19:08 CDT CPT-J3420 Vitamin B12 1000mcg (Cyanocobalamin) 14:48:00 CDT 11/09 CPT-18722 Abx/Therapy Injection 14:47:59 CDT CPT-J3420 Vitamin B12 1000mcg (Cyanocobalamin) 08:34:04 CDT 10/09 CPT-85529 Abx/Therapy Injection 08:34:04 CDT CPT-J3420 Vitamin B12 1000mcg (Cyanocobalamin) 09:18:52 CDT 09/11 CPT-39375 Abx/Therapy Injection 09:18:52 CDT CPT-J3420 Vitamin B12 1000mcg (Cyanocobalamin) 08:35:44 CDT 09/04 CPT-43006 Abx/Therapy Injection 08:35:44 CDT CPT-04740 Immunization Single Admin 11:07:16 CDT CPT-64194 Hepatitis B adult IM 11:07:16 CDT CPT-J3420 Vitamin B12 1000mcg (Cyanocobalamin) 11:00:49 CDT 08/28 CPT-J1040 Depo Medrol 80 mg (Methyl Prednisolone Acetate) 11:00: 49 CDT CPT-12309 Abx/Therapy Injection 11:00:49 CDT CPT-J1040 Depo Medrol 80 mg (Methyl Prednisolone Acetate) 09:16: 23 CDT CPT-J3420 Vitamin B12 1000mcg (Cyanocobalamin) 08:27:05 CDT 08/20 CPT-09415 Abx/Therapy Injection 08:27:05 CDT CPT-99433 Recombivax HB Injection Suspension 5 MCG/0.5ML 10:00:41 CDT CPT-35132 Administration single or combination vaccine inc oral 10 :00:41 CDT CPT-66679 Sono transvag pelvis non OB uterus ovaries cervix 16:36: 57 CDT CPT-47039 LS spine comp w obliq 09:50:55 MANAGER COMPLIANCE CPT-43437 Abd compl w upright 09:50:55 MANAGER COMPLIANCE CPT-J1100 Decadron 4mg (Dexamethasone) 15:51:24 MANAGER COMPLIANCE CPT-J1030 Depo Medrol 40 mg (Methyl Prednisolone Acetate) 15:51: 24 MANAGER COMPLIANCE CPT-10000 Abx/Therapy Injection 15:51:24 MANAGER COMPLIANCE CPT-J1100 Decadron 4mg (Dexamethasone) 15:26:33 MANAGER COMPLIANCE CPT-J1030 Depo Medrol 40 mg (Methyl Prednisolone Acetate) 15:26: 33 MANAGER COMPLIANCE CPT-97675 Sono retroperitoneal complete kidneys and bladder 17:15: 30 CDT CPT-80112 Abd compl w upright 16:09:25 CDT CPT-J1100 Decadron 8mg (Dexamethasone) 17:07:57 CDT CPT-59576 Abx/Therapy Injection 17:07:57 CDT CPT-J1100 Decadron 8mg (Dexamethasone) 16:55:24 CDT CPT-76955 Chest 2V Frontal and Lat 16:32:44 CDT
--- OUTSIDE RECORDS SUMMARY | 2016-11-04 15:58 | XMS REPORT | Clinical Summary ---
Author Author Admin, FLOR Organization [employer] Address Unknown Phone Unavailable Allergies, Adverse Reactions, [...] sites Morbid obesity 278.01 Active Juliet Kimbrough TRAFFIC RATE COMPUTER Morbid obesity 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 Active Juliet [...] breath Nocturnal hypoxia 799.02 Active Fabiola Johnson TRAFFIC RATE COMPUTER Hypoxemia Neck pain 723.1 Resolved Vishal Hui [...] encounter for closed fracture 823.01 Active Neeraj Colilns MD Closed fracture of upper end of fibula Vaginal discharge 623.5 Active Luigi Martínez TRAFFIC RATE COMPUTER Leukorrhea, not specified as infective DYSURIA 788.1 [...] Active Ahmet Carbajal MD Generalized anxiety disorder 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 V72.31 Active Suzan Boo TRAFFIC RATE COMPUTER Routine gynecological examination Bronchitis, acute with mild bronchospasm 466.0 Active Suzan Boo TRAFFIC RATE COMPUTER Acute bronchitis Fibrocystic breast changes 610.1 Active [...] Generic Name NDC Status Provider Patient Instruction LEVAQUIN 500 MG TABS 1 daily for infection LEVOFLOXACIN 32639311212 Active Suzan Rajeev WALTERSN Active TESSALON PERLES 100 MG CAPS 1 three times a day as needed for cough BENZONATATE 61689637563 Active Suzan Rajeev TRAFFIC RATE COMPUTER Active ZOFRAN 4 MG TABS 1 po q6hr PRN Nausea ONDANSETRON HCL No Longer Active Suzan Rajeev TRAFFIC RATE COMPUTER Active FLUTICASONE PROPIONATE 50 MCG/ACT SUSP 2 sprays each nostril daily before bed. FLUTICASONE PROPIONATE 69225921620 No Longer Active Suzan Boo APRN Active ASPIRIN 325 MG ORAL TABS 1 tab q.d ASPIRIN 92068629223 No Longer Active Suzan Boo APRN Active RISPERDAL M-TAB 3 MG ORAL TBDP 1 tab at bedtime RISPERIDONE 51691019541 Active Suzan Boo APRN Active HALOPERIDOL 10 MG ORAL TABS 1 tab q.d HALOPERIDOL 58791126415 No Longer Active Suzan Boo APRN Active GUAIFENESIN-CODEINE 100-10 MG/5ML SYRP 5ml every 4 to 6 hours as needed for cough GUAIFENESIN-CODEINE 20309955649 No Longer Active Suzan Boo APRN Active ZITHROMAX Z-EARNEST 250 MG TABS 2 today and then 1 daily for 4 days AZITHROMYCIN 36249111896 No Longer Active Suzan Boo APRN Active PREDNISONE 10 MG TABS 2 daily for 5 days then 1 daily for 5 days PREDNISONE 32217496280 Active Suzan Boo APRN Active CLONAZEPAM 1 MG ORAL TABS 1 twice a day and an additional 1 tablet every other day as needed for pseudoseizures or anxiety CLONAZEPAM 74773184728 Active Ahmet Carbajal MD Active HYDROCODONE-ACETAMINOPHEN 5-325 MG ORAL TABS 1 tab two times a day HYDROCODONE-ACETAMINOPHEN 96329176390 No Longer Active Ahmet Carbajal MD Active LAMICTAL 100 MG ORAL TABS 1 tab 2 times qd. LAMOTRIGINE 87054582526 Active Ahmet Carbajal MD Active PREDNISONE 20 MG TABS 2 daily for 5 days then 1 daily for 5 days PREDNISONE 49017878984 No Longer Active Ahmet Carbajal MD Active FLUTICASONE PROPIONATE 50 MCG/ACT SUSP 1 to 2 sprays each nostril daily for allergies FLUTICASONE PROPIONATE 41493604953 Active Tila Valenzuela Active BENADRYL 25 MG CAP 4 po at bedtime for insomnia DIPHENHYDRAMINE HCL 43703169703 No Longer Active Ahmet Carbajal MD Active ADVAIR DISKUS 250-50 MCG/DOSE INH AEPB 1 puff twice a day for asthma FLUTICASONE-SALMETEROL 81672230715 No Longer Active Ahmet Carbajal MD Active KLONOPIN 1 MG ORAL TABS 1 tab po TID CLONAZEPAM 96154554801 No Longer Active Ahmet Carbajal MD Active ABILIFY MAINTENA 400 MG IM SUSR 400mg injection every 26 days ARIPIPRAZOLE 55510571498 No Longer Active Ahmet Carbajal MD Active TRAMADOL HCL 50 MG TABS 1/2-1 tab TID PRN TRAMADOL HCL 45576289140 No Longer Active Ahmet Carbajal MD Active BACTRIM DS 800-160 MG TABS 1 twice a day SULFAMETHOXAZOLE- TRIMETHOPRIM 13537610881 No Longer Active Ahmet Carbajal MD Active PROAIR HFA 108 (90 BASE) MCG/ACT AERS 2 puffs four times a day as needed 2015 ALBUTEROL SULFATE 26976252859 Active Ahmet Carbajal MD Active EQ NICOTINE 21 MG/24HR TRANS PT24 Apply daily to stop smoking NICOTINE 93713934697 Active Ahmet Carbajal MD Active MONISTAT 7 COMBO PACK WOODROW 100 & 2 MG-% (9GM) VAG KIT 1 applicatorful per vagina q pm x 7 MICONAZOLE NITRATE 69446213026 No Longer Active Ahmet Carbajal MD Active FLAGYL 500 MG TAB 1 tablet by mouth bid METRONIDAZOLE 00930848430 No Longer Active Ahmet Carbajal MD Active OXYCODONE HCL ER 10 MG ORAL T12A 1/2 tab by mouth every 4 hours prn OXYCODONE HCL 34702077217 No Longer Active Ahmet Carbajal MD Active METHYLPREDNISOLONE 4 MG ORAL TABS po daily METHYLPREDNISOLONE 41267195724 No Longer Active Ahmet Carbajal MD Active LEVOFLOXACIN 500 MG ORAL TABS po daily LEVOFLOXACIN 42903525286 No Longer Active Ahmet Carbajal MD Active VIIBRYD 10 MG ORAL TABS Take 1 tablet once a day VILAZODONE HCL 27405758136 No Longer Active Ahmet Carbajal MD Active TOPAMAX 50 MG ORAL TABS 1 tab twice daily TOPIRAMATE 10084922965 No Longer Active Ahmet Carbajal MD Active DICLOFENAC SODIUM 50 MG TBEC 1 tablet by mouth four times daily PRN Pain 2015 DICLOFENAC SODIUM 45360468734 No Longer Active Ahmet Carbajal MD Active ADZENYS XR-ODT 6.3 MG ORAL TBED 1 tab po daily for ADHD AMPHETAMINE 99969645814 No Longer Active Ahmet Carbajal MD Active CHANTIX 1 MG TABS 1 twice a day to help quit smoking VARENICLINE TARTRATE 66650530748 No Longer Active Dipika Burgos MD Active CHANTIX STARTING MONTH EARNEST 0.5 MG X 11 & 1 MG X 42 TABS take as directed 2015 VARENICLINE TARTRATE 49152302799 No Longer Active Dipika Burgos MD Active TESSALON PERLES 100 MG CAP 1 to 2 tablets by mouth 3 times daily as needed for cough BENZONATATE 64353162185 No Longer Active Luigi Martínez APRN Active IMITREX 50 MG ORAL TABS 0.5 po x 1 PRN Headache. May repeat dose x 1 in 2 hours if needed SUMATRIPTAN SUCCINATE 45391072907 Active Ahmet Carbajal MD Active HYDROCODONE-ACETAMINOPHEN 5-325 MG TABS 1 to 2 four times a day as needed for pain use until can be seen by specialist HYDROCODONE- ACETAMINOPHEN 05572219033 No Longer Active Vishal Hui MD Active PROAIR HFA 108 (90 BASE) MCG/ACT AERS 2 puffs four times a day as needed 2015 ALBUTEROL SULFATE 22658695751 No Longer Active Vishal Hui MD Active PREDNISONE 20 MG TABS 2 daily for 5 days then 1 daily for 5 days PREDNISONE 11705917209 No Longer Active Vishal Hui MD Active ZITHROMAX Z-EARNEST 250 MG TABS 2 today and then 1 daily for 4 days AZITHROMYCIN 13187024122 No Longer Active Vishal Hui MD Active DICLOFENAC POTASSIUM TABS Take 1 tablet twice a day (pt. is not sure of the dose.) DICLOFENAC POTASSIUM TABS 15878507230 No Longer Active Vishal Hui MD Active VERAPAMIL HCL ER 120 MG ORAL CR-TABS Take 1 tablet by mouth twice a day. VERAPAMIL HCL 00998610678 Active Vishal Hui MD Active FLAGYL 500 MG TAB 1 tablet by mouth bid METRONIDAZOLE 75055059546 No Longer Active Vishal Hui MD Active VALIUM 5 MG TAB Take 1-2 tablets daily DIAZEPAM 78252028258 No Longer Active Fabiola Johnson APRN Active METOPROLOL TARTRATE 25 MG ORAL TABS 1/2 tablet twice daily for heart rate and blood pressure METOPROLOL TARTRATE 56429416897 No Longer Active Fabiola Johnson APRN Active MIRALAX ORAL POWD 17GMS DAILY IN WATER POLYETHYLENE GLYCOL 3350 91806608423 Active TAMARA Casey Active MIRALAX PACK 1 po qd PRN Constipation POLYETHYLENE GLYCOL 3350 21439399794 No Longer Active Ahmet Carbajal MD Active MINIPRESS 2 MG CAPS 4 cap po at night PRAZOSIN HCL 48268592242 No Longer Active Ahmet Carbajal MD Active PIROXICAM 20 MG CAPS 1 cap po qd PRN Pain PIROXICAM 98683434363 No Longer Active Ahmet Carbajal MD Active TRAMADOL HCL 50 MG TABS 1-2 po TID PRN Pain TRAMADOL HCL 62770679197 No Longer Active Ahmet Carbajal MD Active METOPROLOL TARTRATE 50 MG TAB 1 po bid METOPROLOL TARTRATE 74640293508 No Longer Active Ahmet Carbajal MD Active ABILIFY 15 MG ORAL TABS 1 tab daily ARIPIPRAZOLE 83150070264 No Longer Active Ahmet Carbajal MD Active PROZAC 20 MG ORAL CAPS 1 tab daily FLUOXETINE HCL 11699777850 No Longer Active Ahmet Carbajal MD Active AMBIEN 5 MG ORAL TABS 1 tab at bedtime ZOLPIDEM TARTRATE 93727506571 No Longer Active Ahmet Carbajal MD Active PREDNISONE 20 MG TAB 2 tabs daily for 4 days, 1 tab daily for 4 days, 1/2 tab daily for 4 days PREDNISONE 73418841820 No Longer Active Ahmet Carbajal MD Active KEFLEX 500 MG CAP 1 po TID x 10 days CEPHALEXIN 65212484103 No Longer Active Vishal Hui MD Active SAPHRIS 5 MG SUBL 1 po bid ASENAPINE MALEATE 31097494966 No Longer Active Jillina Frazell TRAFFIC RATE COMPUTER Active LATUDA 80 MG TABS Take one by mouth daily LURASIDONE HCL 94816007247 No Longer Active Jillina Frazell TRAFFIC RATE COMPUTER Active AMLODIPINE BESYLATE 5 MG TABS 1 tablet by mouth daily AMLODIPINE BESYLATE 23382865089 No Longer Active Jillina Frazell TRAFFIC RATE COMPUTER Active AMITRIPTYLINE HCL 100 MG TAB one at hs AMITRIPTYLINE HCL 23910312582 No Longer Active Vishal Hui MD Active TRAZODONE HCL 100 MG TAB take 1 at bedtime TRAZODONE HCL 57389676930 No Longer Active Vishal Hui MD Active VYVANSE 40 MG CAPS 1 daily, LISDEXAMFETAMINE DIMESYLATE 62304184720 No Longer Active Vishal Hui MD Active IBUPROFEN 600 MG TAB 1 po TID PRN IBUPROFEN 39866444289 No Longer Active Vishal Hui MD Active PROZAC 20 MG CAP Take one by mouth daily FLUOXETINE HCL 49388949562 No Longer Active Vishal Hui MD Active BACTRIM DS 800-160 MG TABS 1 pill by mouth twice daily SULFAMETHOXAZOLE-TRIMETHOPRIM 63155604379 No Longer Active Sahara Rodriguez MD PhD Active DIFLUCAN 150 MG TAB 1 tablet by mouth daily FLUCONAZOLE 69428682215 No Longer Active Vishal Hui MD Active TIZANIDINE HCL 4 MG TABS 1 po q6hr PRN Muscle Spasm/Back Pain TIZANIDINE HCL 69723434698 Active Vishal Hui MD Active CLINDAMYCIN HCL 150 MG CAPS 1 four times a day CLINDAMYCIN HCL 39218273984 No Longer Active Neeraj Collins MD Active KEFLEX 500 MG ORAL CAPS 1 cap QID by mouth CEPHALEXIN 82630405668 No Longer Active Neeraj Collins MD Active DIFLUCAN 150 MG TABS 1 pill every other day x 2 doses FLUCONAZOLE 44785365176 No Longer Active Sahara Rodriguez MD PhD Active MELATONIN 3 MG CAPS 2 po q hs MELATONIN 76099795260 No Longer Active Sahara Rodriguez MD PhD Active MULTIVITAMINS CAPS Take one by mouth daily MULTIPLE VITAMIN 75893004270 No Longer Active Sahara Rodriguez MD PhD Active BACTRIM DS 800-160 MG TAB 1 tab by mouth twice daily TRIMETHOPRIM-SULFAMETHOXAZOLE 60063607577 No Longer Active Sahara Rodriguez MD PhD Active [facility] PROBIOTIC ORAL CHEW 2 daily po PROBIOTIC PRODUCT 59073937916 No Longer Active Sahara Rodriguez MD PhD Active BACTRIM DS 800-160 MG TABS 1 po BID x 7 days SULFAMETHOXAZOLE-TRIMETHOPRIM 56066238696 No Longer Active Vishal Hui MD Active CHANTIX STARTING MONTH EARNEST 0.5 MG X 11 & 1 MG X 42 TABS 0.5mg daily for 3 days , then 0.5mg BID for 4 days, then 1mg BID VARENICLINE TARTRATE 32554169052 No Longer Active TAMARA Gray Active VERAPAMIL HCL CR 120 MG TAB CR 1 po bid VERAPAMIL HCL 95791101514 No Longer Active Vishal Hui MD Active METOPROLOL SUCCINATE 50 MG TB24 1 tablet by mouth daily METOPROLOL SUCCINATE 68726741327 No Longer Active Vishal Hui MD Active SAPHRIS 10 MG SUBL 1 tab po bid ASENAPINE MALEATE 16372546802 No Longer Active Vishal Hui MD Active LISINOPRIL 20 MG TABS 1 tab po qd LISINOPRIL 09698680978 No Longer Active Vishal Hui MD Active LATUDA 20 MG TABS Take one by mouth daily LURASIDONE HCL 88755003409 No Longer Active Vishal Hui MD Active TRAZODONE HCL 50 MG TABS 1/2 tab po qd prn for anxiety TRAZODONE HCL 56738280838 No Longer Active Vishal Hui MD Active OMEPRAZOLE 20 MG TBEC 1 po q a.m. 30min prior to first food intake OMEPRAZOLE 68379987617 Active Vishal Hui MD Active RANITIDINE HCL 150 MG CAPS 1 twice a day RANITIDINE HCL 95043376047 Active Jilljanee Martínez APRN Active LINZESS 290 MCG CAPS Take one by mouth daily LINACLOTIDE 97003365642 No Longer Active Vishal Hui MD Active SAPHRIS 5 MG SUBL 1 tab po qd ASENAPINE MALEATE 31735769368 No Longer Active Vishal Hui MD Active ZALEPLON 10 MG CAPS 1 cap po every other night ZALEPLON 30245175276 No Longer Active Vishal Hui MD Active LYRICA 50 MG CAPS 1 tab po TID PREGABALIN 29040118335 No Longer Active Vishal Hui MD Active LORATADINE 10 MG TABS 1 tab po qd LORATADINE 04392237194 No Longer Active Vishal Hui MD Active VERAPAMIL HCL ER 180 MG CR-TABS 1 tab po bid VERAPAMIL HCL 93147129885 No Longer Active Vishal Hui MD Active MIRALAX POWD 1 capfull once daily POLYETHYLENE GLYCOL 3350 99634748383 No Longer Active Vishal Hui MD Active PREDNISONE 20 MG TABS 1 tab po qd PREDNISONE 85510959309 No Longer Active Renzo Thornton DO Active LEVOFLOXACIN 500 MG TABS 1 tab po qd LEVOFLOXACIN 02103649597 No Longer Active Renzo Thornton DO Active BUSPIRONE HCL 15 MG TABS 1 tab po TID BUSPIRONE HCL 24706815673 No Longer Active Renzo Thornton DO Active BENZTROPINE MESYLATE 1 MG TABS 1 tab po qd BENZTROPINE MESYLATE 11102511182 No Longer Active Renzo Thornton DO Active ATENOLOL 25 MG TABS 1 tab po qd ATENOLOL 50040704365 No Longer Active Renzo Thornton DO Active ESCITALOPRAM OXALATE 20 MG TABS 1 tab po qd ESCITALOPRAM OXALATE 48401106818 No Longer Active Renzo Thornton DO Active ADVAIR DISKUS 250-50 MCG/DOSE AEPB 1 puff BID FLUTICASONE-SALMETEROL 23660571318 No Longer Active Renzo Thornton DO Active PREDNISONE 20 MG TAB 2 tabs daily for 3 days, 1 tab daily for 3 days, 1/2 tab daily for 2 days PREDNISONE 41186648399 No Longer Active Vishal Hui MD Active CEFDINIR 300 MG CAPS by mouth twice a day CEFDINIR 59911455735 No Longer Active Vishal Hui MD Active LANSOPRAZOLE 30 MG CPDR 1 cap po qd LANSOPRAZOLE 54467429665 No Longer Active Vishal Hui MD Active BACLOFEN 20 MG TABS 1 tab po tid BACLOFEN 43949016661 No Longer Active Vishal Hui MD Active ADVAIR DISKUS 250-50 MCG/DOSE AEPB 1 puff BID ADVAIR DISKUS 250-50 MCG/DOSE AEPB FLUTICASONE-SALMETEROL Inactive ESCITALOPRAM OXALATE 20 MG TABS 1 tab po qd ESCITALOPRAM OXALATE 20 MG TABS 322547 ESCITALOPRAM OXALATE Inactive ATENOLOL 25 MG TABS 1 tab po qd ATENOLOL 25 MG TABS 810795 ATENOLOL Inactive BENZTROPINE MESYLATE 1 MG TABS 1 tab po qd BENZTROPINE MESYLATE 1 MG TABS 309347 BENZTROPINE MESYLATE Inactive BUSPIRONE HCL 15 MG TABS 1 tab po TID BUSPIRONE HCL 15 MG TABS 636541 BUSPIRONE HCL Inactive LEVOFLOXACIN 500 MG TABS 1 tab po qd LEVOFLOXACIN 500 MG TABS 372641 LEVOFLOXACIN Inactive PREDNISONE 20 MG TABS 1 tab po qd PREDNISONE 20 MG TABS 355636 PREDNISONE Inactive MIRALAX POWD 1 capfull once daily MIRALAX POWD 230419 POLYETHYLENE GLYCOL 3350 Inactive VERAPAMIL HCL ER 180 MG CR-TABS 1 tab po bid VERAPAMIL HCL ER 180 MG CR-TABS VERAPAMIL HCL Inactive LORATADINE 10 MG TABS 1 tab po qd LORATADINE 10 MG TABS 785573 LORATADINE Inactive LYRICA 50 MG CAPS 1 tab po TID LYRICA 50 MG CAPS PREGABALIN Inactive ZALEPLON 10 MG CAPS 1 cap po every other night ZALEPLON 10 MG CAPS 836069 ZALEPLON Inactive SAPHRIS 5 MG SUBL 1 tab po qd SAPHRIS 5 MG SUBL ASENAPINE MALEATE Inactive TRAZODONE HCL 50 MG TABS 1/2 tab po qd prn for anxiety TRAZODONE HCL 50 MG TABS 962979 TRAZODONE HCL Inactive LATUDA 20 MG TABS Take one by mouth daily LATUDA 20 MG TABS LURASIDONE HCL Inactive LISINOPRIL 20 MG TABS 1 tab po qd LISINOPRIL 20 MG TABS 386636 LISINOPRIL Inactive SAPHRIS 10 MG SUBL 1 [...] twice daily BACTRIM DS 800-160 MG TAB 120807 TRIMETHOPRIM-SULFAMETHOXAZOLE Inactive MULTIVITAMINS CAPS Take one by mouth daily MULTIVITAMINS CAPS MULTIPLE VITAMIN Inactive MELATONIN 3 MG CAPS 2 po q hs MELATONIN 3 MG CAPS 567590 MELATONIN Inactive KEFLEX 500 MG ORAL CAPS 1 cap QID by mouth KEFLEX 500 MG ORAL CAPS 047168 CEPHALEXIN Inactive CLINDAMYCIN HCL 150 MG CAPS 1 four times a day CLINDAMYCIN HCL 150 MG CAPS 972651 CLINDAMYCIN HCL Inactive DIFLUCAN 150 MG TAB 1 tablet by mouth daily DIFLUCAN 150 MG TAB 066844 FLUCONAZOLE Inactive PROZAC 20 MG CAP Take one by mouth daily PROZAC 20 MG CAP 042003 FLUOXETINE HCL Inactive IBUPROFEN 600 MG TAB 1 po TID PRN IBUPROFEN 600 MG TAB 184690 IBUPROFEN Inactive VYVANSE 40 MG CAPS 1 daily, VYVANSE 40 MG CAPS LISDEXAMFETAMINE DIMESYLATE Inactive TRAZODONE HCL 100 MG TAB take 1 at bedtime TRAZODONE HCL 100 MG TAB 778877 TRAZODONE HCL Inactive AMITRIPTYLINE HCL 100 MG TAB one at hs AMITRIPTYLINE HCL 100 MG TAB 451809 AMITRIPTYLINE HCL Inactive AMLODIPINE BESYLATE 5 MG TABS 1 tablet by mouth daily AMLODIPINE BESYLATE 5 MG TABS 269334 AMLODIPINE BESYLATE Inactive LATUDA 80 MG TABS Take one by mouth daily LATUDA 80 MG TABS LURASIDONE HCL Inactive SAPHRIS 5 MG SUBL 1 po bid SAPHRIS 5 MG SUBL ASENAPINE MALEATE Inactive PREDNISONE 20 MG TAB 2 tabs daily for 4 days, 1 tab daily for 4 days, 1/2 tab daily for 4 days PREDNISONE 20 MG TAB 535615 PREDNISONE Inactive AMBIEN 5 MG ORAL TABS 1 tab at bedtime AMBIEN 5 MG ORAL TABS 949970 ZOLPIDEM TARTRATE Inactive PROZAC 20 MG ORAL CAPS 1 tab daily PROZAC 20 MG ORAL CAPS 519273 FLUOXETINE HCL Inactive ABILIFY 15 MG ORAL TABS 1 tab daily ABILIFY 15 MG ORAL TABS 443000 ARIPIPRAZOLE Inactive METOPROLOL TARTRATE 50 MG TAB 1 po bid METOPROLOL TARTRATE 50 MG TAB 206961 METOPROLOL TARTRATE Inactive TRAMADOL HCL 50 MG TABS 1-2 po TID PRN Pain TRAMADOL HCL 50 MG TABS 818872 TRAMADOL HCL Inactive PIROXICAM 20 MG CAPS 1 cap po qd PRN Pain PIROXICAM 20 MG CAPS 482005 PIROXICAM Inactive MINIPRESS 2 MG CAPS 4 cap po at night MINIPRESS 2 MG CAPS 106352 PRAZOSIN HCL Inactive MIRALAX PACK 1 po qd PRN Constipation MIRALAX PACK 767504 POLYETHYLENE GLYCOL 3350 Inactive METOPROLOL TARTRATE 25 MG ORAL TABS 1/2 tablet twice daily for heart rate and blood pressure METOPROLOL TARTRATE 25 MG ORAL TABS 238557 METOPROLOL TARTRATE Inactive VALIUM 5 MG TAB Take 1-2 tablets daily VALIUM 5 MG TAB 781281 DIAZEPAM Inactive FLAGYL 500 MG TAB 1 tablet by mouth bid FLAGYL 500 MG TAB 953201 METRONIDAZOLE Inactive DICLOFENAC POTASSIUM TABS Take 1 tablet twice a day (pt. is not sure of the dose.) DICLOFENAC POTASSIUM TABS DICLOFENAC POTASSIUM TABS Inactive ZITHROMAX Z-EARNEST 250 MG TABS 2 today and then 1 daily for 4 days ZITHROMAX Z-EARNEST 250 MG TABS 5470129 AZITHROMYCIN Inactive PREDNISONE 20 MG TABS 2 daily for 5 days then 1 daily for 5 days PREDNISONE 20 MG TABS 701839 PREDNISONE Inactive PROAIR HFA 108 (90 BASE) MCG/ACT AERS 2 puffs four times a day as needed 2015 PROAIR HFA 108 (90 BASE) MCG/ACT AERS ALBUTEROL SULFATE Inactive HYDROCODONE-ACETAMINOPHEN 5-325 MG TABS 1 to 2 four times a day as needed for pain use until can be seen by specialist HYDROCODONE- ACETAMINOPHEN 5-325 MG TABS 788819 HYDROCODONE-ACETAMINOPHEN Inactive TESSALON PERLES 100 MG CAP 1 to 2 tablets by mouth 3 times daily as needed for cough TESSALON PERLES 100 MG CAP 813111 BENZONATATE Inactive CHANTIX STARTING MONTH EARNEST 0.5 [...] Pain 2015 DICLOFENAC SODIUM 50 MG TBEC 094666 DICLOFENAC SODIUM Inactive TOPAMAX 50 MG ORAL TABS 1 tab twice daily TOPAMAX 50 MG ORAL TABS 035129 TOPIRAMATE Inactive VIIBRYD 10 MG ORAL TABS Take 1 tablet once a day VIIBRYD 10 MG ORAL TABS VILAZODONE HCL Inactive LEVOFLOXACIN 500 MG ORAL TABS po daily LEVOFLOXACIN 500 MG ORAL TABS 627152 LEVOFLOXACIN Inactive METHYLPREDNISOLONE 4 MG ORAL TABS po daily METHYLPREDNISOLONE 4 MG ORAL TABS 091370 METHYLPREDNISOLONE Inactive OXYCODONE HCL ER 10 MG ORAL T12A 1/2 tab by mouth every 4 hours prn OXYCODONE HCL ER 10 MG ORAL T12A OXYCODONE HCL Inactive FLAGYL 500 MG TAB 1 tablet by mouth bid FLAGYL 500 MG TAB 260720 METRONIDAZOLE Inactive MONISTAT 7 COMBO PACK WOODROW 100 & 2 MG-% (9GM) VAG KIT 1 applicatorful per vagina q pm x 7 MONISTAT 7 COMBO PACK WOODROW 100 & 2 MG-% (9GM) VAG KIT MICONAZOLE NITRATE Inactive BACTRIM DS 800-160 MG TABS 1 twice a day BACTRIM DS 800-160 MG TABS 653737 SULFAMETHOXAZOLE-TRIMETHOPRIM Inactive TRAMADOL HCL 50 MG TABS 1/2-1 tab TID PRN TRAMADOL HCL 50 MG TABS 227531 TRAMADOL HCL Inactive ABILIFY MAINTENA 400 MG IM SUSR 400mg injection every 26 days ABILIFY MAINTENA 400 MG IM SUSR ARIPIPRAZOLE Inactive KLONOPIN 1 MG ORAL TABS 1 tab po TID KLONOPIN 1 MG ORAL TABS 167953 CLONAZEPAM Inactive ADVAIR DISKUS 250-50 MCG/DOSE INH AEPB 1 puff twice a day for asthma ADVAIR DISKUS 250-50 MCG/DOSE INH AEPB FLUTICASONE- SALMETEROL Inactive BENADRYL 25 MG CAP 4 po at bedtime for insomnia BENADRYL 25 MG CAP DIPHENHYDRAMINE HCL Inactive PREDNISONE 20 MG TABS 2 daily for 5 days then 1 daily for 5 days PREDNISONE 20 MG TABS 412511 PREDNISONE Inactive HYDROCODONE-ACETAMINOPHEN 5-325 MG ORAL TABS 1 tab two times a day HYDROCODONE-ACETAMINOPHEN 5-325 MG ORAL TABS 244021 HYDROCODONE-ACETAMINOPHEN Inactive ZITHROMAX Z-EARNEST 250 MG TABS 2 today and then 1 daily for 4 days ZITHROMAX Z-EARNEST 250 MG TABS 6347909 AZITHROMYCIN Inactive GUAIFENESIN-CODEINE 100-10 MG/5ML SYRP 5ml every 4 to 6 hours as needed for cough GUAIFENESIN-CODEINE 100-10 MG/5ML SYRP 706210 GUAIFENESIN-CODEINE Inactive HALOPERIDOL 10 MG ORAL TABS 1 tab q.d HALOPERIDOL 10 MG ORAL TABS 576890 HALOPERIDOL Inactive ASPIRIN 325 MG ORAL TABS 1 tab q.d ASPIRIN 325 MG ORAL TABS 480141 ASPIRIN Inactive FLUTICASONE PROPIONATE 50 MCG/ACT SUSP 2 sprays each nostril daily before bed. FLUTICASONE PROPIONATE 50 MCG/ACT SUSP 2544123 FLUTICASONE PROPIONATE Inactive ZOFRAN 4 MG TABS 1 po q6hr PRN Nausea ZOFRAN 4 MG TABS 699267 ONDANSETRON HCL Inactive CEFDINIR 300 MG CAPS by mouth twice a day CEFDINIR 300 MG CAPS 051066 CEFDINIR Inactive PREDNISONE 20 MG TAB 2 tabs daily for 3 days, 1 tab daily for 3 days, 1/2 tab daily for 2 days PREDNISONE 20 MG TAB 168294 PREDNISONE Inactive BACTRIM DS 800-160 MG TABS 1 po BID x 7 days BACTRIM DS 800-160 MG TABS 19820521 SULFAMETHOXAZOLE-TRIMETHOPRIM Inactive DIFLUCAN 150 MG TABS 1 pill every other day x 2 doses DIFLUCAN 150 MG TABS 009269 FLUCONAZOLE Inactive BACTRIM DS 800-160 MG TABS 1 pill by mouth twice daily BACTRIM DS 800-160 MG TABS 19820521 SULFAMETHOXAZOLE-TRIMETHOPRIM Inactive KEFLEX 500 MG CAP 1 po TID x 10 days KEFLEX 500 MG CAP 947834 CEPHALEXIN Inactive Advance Directives Directive Description Start [...] 369 10^3/MM^3 10*3/mm3 142-424 Lab Report: Chlamydia/GC APTIMA/[id number] - Lab chlamydia DNA probe NOT DETECTED NOT DETECTED Lab Report: Chlamydia/GC APTIMA/71800 - Microbiology Neisseria gonorrhoeae DNA probe NOT DETECTED NOT DETECTED Lab Report: Chlamydia/GC APTIMA/[id number], Urinalysis, Complete, with Reflex ... - Lab chlamydia DNA probe NOT DETECTED NOT DETECTED Lab Report: Chlamydia/GC APTIMA/52683, Urinalysis, Complete, with Reflex ... - Microbiology Neisseria gonorrhoeae DNA probe NOT DETECTED NOT DETECTED Lab Report: Chlamydia/GC APTIMA/49329, Urinalysis, Complete, with Reflex ... - Urinalysis microalbumin/total urine volume 2 mg/L Units converted. See lab report for original value. microalbumin/creatinine ratio, urine 9 MCG/MG CREAT mg/L <30 Lab Report: Comp. Metabolic Panel - Chemistry sodium, serum 142 mmol/L 155-616 3923/06/08 carbon dioxide, venous blood 27.6 mmol/L 21.0-32.0 potassium, serum 4.0 mmol/L 3.5-5.2 chloride, serum 105 mmol/L 98-107 blood glucose 95 mg/dL 65-110 urea nitrogen, blood 8 mg/dL 7-18 creatinine, serum 0.75 mg/dL 0.55-1.30 alanine aminotransferase (SGPT), serum 49 U/L 12-78 aspartate aminotransferase (SGOT), serum 28 U/L 15-37 calcium, serum 9.4 mg/dL 8.5-10.1 bilirubin, serum, total 0.30 mg/dL 0.00-1.00 sodium, serum 140 mmol/L 606-671 2877/08/08 carbon dioxide, venous blood 33.7 mmol/L 21.0-32.0 [...] mg/dL Encounters Code Encounter Date Provider Facility CPT-66428 Level 3 Est. Patient 15:28:23 CONTINUITY EDITOR Suzan Boo [facility] CPT-73984 Level 4 Est. Patient 10:20:54 CONTINUITY EDITOR Suzan Boo [facility] CPT-66854 Level 3 Est. Patient 11:47:37 CONTINUITY EDITOR Ahmet Carbajal MD [facility] CPT-45467 Level 3 Est. Patient 10:40:11 CONTINUITY EDITOR Ahmet Carbajal MD [facility] CPT-15615 Level 3 Est. Patient 15:07:06 CONTINUITY EDITOR Neeraj Collins MD [facility] CPT-13051 Level 4 Est. Patient 14:45:00 CONTINUITY EDITOR Ahmet Carbajal MD [facility] CPT-91064 Level 3 Est. Patient 13:59:59 CDT Luigi Martínez [facility] CPT-85194 Level 3 Est. Patient 18:18:53 CDT Neeraj Collins MD [facility] CPT-86603 Level 3 Est. Patient 15:50:44 CDT Vishal Hui MD [facility] CPT-77603 Level 3 Est. Patient 11:36:17 CDT Ahmet Carbajal MD [facility] CPT-80809 Level 3 Est. Patient 13:29:16 CDT Vishal Hui MD [facility] CPT-94868 Level 3 Est. Patient 14:27:52 CDT Neeraj Collins MD [facility] CPT-56079 Level 3 Est. Patient 08:56:03 CDT Luigi Martínez [facility] CPT-40552 Level 4 Est. Patient 12:11:48 CDT Fabiola Johnson [facility] CPT-64268 Level 3 New Patient 16:53:37 CDT Albert Caldera MD [facility] CPT-96184 Level 3 Est. Patient 11:25:49 CDT Renzo Thornton DO [facility] CPT-27330 Level 3 Est. Patient 15:22:01 CDT Ahmet Carbajal MD [facility] CPT-21751 Level 4 Est. Patient 09:00:51 CONTINUITY EDITOR Vishal Hui MD [facility] CPT-80090 Level 3 Est. Patient 11:37:33 CONTINUITY EDITOR Vishal Hui MD [facility] -[facility] CPT-88735 Level 3 Est. Patient 08:41:09 CONTINUITY EDITOR Vishal Hui MD [facility] CPT-00753 Level 4 Est. Patient 10:19:35 CONTINUITY EDITOR Vishal Hui MD [facility] CPT-09341 Level 3 Est. Patient 13:35:45 CDT Vishal Hui MD [facility] CPT-21509 Level 4 Est. Patient 10:08:37 CDT Vishal Hui MD [facility] CPT-62731 Level 3 Est. Patient 11:22:10 CDT Vishal Hui MD [facility] CPT-18803 Level 3 Est. Patient 11:03:32 CDT Sahara Rodriguez MD [facility]-74960 Level 3 Est. Patient 09:41:35 CDT Vishal Hui MD [facility] CPT-27169 Level 3 Est. Patient 12:00:41 CDT Neeraj Collins MD [facility]-60579 Level 3 Est. Patient 09:16:24 CDT Vishal Hui MD [facility] CPT-66448 Level 4 Est. Patient 13:59:09 CDT Neeraj Collins MD [facility]-50718 Level 3 Est. Patient 15:19:43 CDT Renzo Thornton DO [facility] CPT-70363 Level 3 Est. Patient 18:10:26 CDT Sahara Rodriguez MD [facility] CPT-66474 Level 3 Est. Patient 14:49:50 CDT Vishal Hui MD [facility] CPT-53482 Level 4 Est. Patient 18:41:46 CDT Neeraj Collins MD [facility]-85481 Level 4 Est. Patient 09:18:38 CONTINUITY EDITOR Vishal Hui MD [facility] CPT-78264 Level 3 Est. Patient 14:43:55 CONTINUITY EDITOR Vishal Hui MD [facility] CPT-53330 Level 3 Est. Patient 15:26:33 CONTINUITY EDITOR Sahara Rodriguez MD PhD [facility] CPT-65178 Level 3 Est. Patient 10:32:14 CONTINUITY EDITOR Vishal Hui MD [facility] CPT-55132 Level 3 Est. Patient 15:12:52 CONTINUITY EDITOR Vishal Hui MD [facility] CPT-30886 Level 4 Est. Patient 09:19:27 CDT Vishal Hui MD [facility] CPT-59686 Level 3 Est. Patient 15:53:00 CDT Renzo Thornton [facility] CPT-66940 Level 3 Est. Patient 15:50:30 CDT Renzo Thornton [facility] CPT-44450 Level 3 Est. Patient 16:55:24 CDT Vishal Hui MD [facility] Procedures Code Procedure Name Date Entry Date Standard Description CPT-G0439 [facility] Annual Wellness Exam 09:30:58 CONTINUITY EDITOR CPT-32446 TSH - LAB USE ONLY 08:50:26 CONTINUITY EDITOR CPT-18520 CBC - LAB USE ONLY 08:50:26 CONTINUITY EDITOR CPT-78809 Venipuncture Draw Fee 08:50:26 CONTINUITY EDITOR CPT-39082 Abx/Therapy Injection 17:34:30 CONTINUITY EDITOR CPT-43820 Nexplanon Removal with Reinsertion 14:09:32 CDT CPT-J7307 Nexplanon (Implant) 14:09:32 CDT CPT-OV Office Visit 14:09:32 CDT CPT-09330 UA w micro - LAB USE ONLY 16:21:13 CDT CPT-46492 [place] Mount - LAB USE ONLY 16:21:13 CDT CPT-28609 First Vx - Ix admin for Medicare patients 14:37:47 CDT CPT-73052 Fluzone Preservative Free Intramuscular Suspension 14:37 :47 CDT CPT-56069 Abx/Therapy Injection 13:54:22 CDT CPT-82898 Abx/Therapy Injection 08:47:09 CDT CPT-37639 Abx/Therapy Injection 13:29:56 CDT CPT-90818 Abx/Therapy Injection 08:36:16 CDT CPT-65909 Wet [place] - LAB USE ONLY 17:44:58 CDT CPT-44705 UA w micro - LAB USE ONLY 17:44:58 CDT CPT-51802 CMP - LAB USE ONLY 17:44:58 CDT CPT-85722 Venipuncture Draw Fee 17:44:58 CDT CPT-25224 Cervical Min 4V - XRAY USE ONLY 09:01:40 CDT CPT-23715 Chest 2V Frontal and Lat - XRAY USE ONLY 11:06:31 CDT CPT-21075 EKG Trac and Interp - XRAY USE ONLY 11:31:43 CDT 08/26 CPT-J3420 Vitamin B12 1000mcg (Cyanocobalamin) 08:10:26 CONTINUITY EDITOR 04/12 CPT-72272 Abx/Therapy Injection 08:10:26 CONTINUITY EDITOR CPT-G0438 Initial Annual Wellness Exam 19:01:01 CONTINUITY EDITOR CPT-J3420 Vitamin B12 1000mcg (Cyanocobalamin) 16:57:46 CDT 08/14 CPT-59162 Recombivax HB Injection Suspension 5 MCG/0.5ML 08:37:50 CONTINUITY EDITOR CPT-85539 Immunization Single Admin 08:37:50 CONTINUITY EDITOR CPT-J3420 Vitamin B12 1000mcg (Cyanocobalamin) 08:32:16 CONTINUITY EDITOR 03/11 CPT-73595 Abx/Therapy Injection 08:32:16 CONTINUITY EDITOR CPT-28978 Chest 2V Frontal and Lat 11:46:38 CONTINUITY EDITOR CPT-44685 Venipuncture Draw Fee 09:12:45 CONTINUITY EDITOR CPT-J3420 Vitamin B12 1000mcg (Cyanocobalamin) 08:50:15 CONTINUITY EDITOR 02/08 CPT-97889 Abx/Therapy Injection 08:50:15 CONTINUITY EDITOR CPT-Cryo Cryotherapy 10:19:35 CONTINUITY EDITOR CPT-000 Give Appropriate Flu Vaccine 09:22:16 CDT CPT-J3420 Vitamin B12 1000mcg (Cyanocobalamin) 19:08:57 CDT 01/11 CPT-63309 Abx/Therapy Injection 19:08:57 CDT CPT-J3420 Vitamin B12 1000mcg (Cyanocobalamin) 08:19:08 CDT 12/11 CPT-55784 Abx/Therapy Injection 08:19:08 CDT CPT-J3420 Vitamin B12 1000mcg (Cyanocobalamin) 14:48:00 CDT 11/09 CPT-30790 Abx/Therapy Injection 14:47:59 CDT CPT-J3420 Vitamin B12 1000mcg (Cyanocobalamin) 08:34:04 CDT 10/09 CPT-30578 Abx/Therapy Injection 08:34:04 CDT CPT-J3420 Vitamin B12 1000mcg (Cyanocobalamin) 09:18:52 CDT 09/11 CPT-86768 Abx/Therapy Injection 09:18:52 CDT CPT-J3420 Vitamin B12 1000mcg (Cyanocobalamin) 08:35:44 CDT 09/04 CPT-96805 Abx/Therapy Injection 08:35:44 CDT CPT-64062 Immunization Single Admin 11:07:16 CDT CPT-01256 Hepatitis B adult IM 11:07:16 CDT CPT-J3420 Vitamin B12 1000mcg (Cyanocobalamin) 11:00:49 CDT 08/28 CPT-J1040 Depo Medrol 80 mg (Methyl Prednisolone Acetate) 11:00: 49 CDT CPT-22934 Abx/Therapy Injection 11:00:49 CDT CPT-J1040 Depo Medrol 80 mg (Methyl Prednisolone Acetate) 09:16: 23 CDT CPT-J3420 Vitamin B12 1000mcg (Cyanocobalamin) 08:27:05 CDT 08/20 CPT-64720 Abx/Therapy Injection 08:27:05 CDT CPT-80922 Recombivax HB Injection Suspension 5 MCG/0.5ML 10:00:41 CDT CPT-10268 Administration single or combination vaccine inc oral 10 :00:41 CDT CPT-67203 Sono transvag pelvis non OB uterus ovaries cervix 16:36: 57 CDT CPT-52682 LS spine comp w obliq 09:50:55 CONTINUITY EDITOR CPT-22475 Abd compl w upright 09:50:55 CONTINUITY EDITOR CPT-J1100 Decadron 4mg (Dexamethasone) 15:51:24 CONTINUITY EDITOR CPT-J1030 Depo Medrol 40 mg (Methyl Prednisolone Acetate) 15:51: 24 CONTINUITY EDITOR CPT-91676 Abx/Therapy Injection 15:51:24 CONTINUITY EDITOR CPT-J1100 Decadron 4mg (Dexamethasone) 15:26:33 CONTINUITY EDITOR CPT-J1030 Depo Medrol 40 mg (Methyl Prednisolone Acetate) 15:26: 33 CONTINUITY EDITOR CPT-18520 Sono retroperitoneal complete kidneys and bladder 17:15: 30 CDT CPT-41429 Abd compl w upright 16:09:25 CDT CPT-J1100 Decadron 8mg (Dexamethasone) 17:07:57 CDT CPT-14334 Abx/Therapy Injection 17:07:57 CDT CPT-J1100 Decadron 8mg (Dexamethasone) 16:55:24 CDT CPT-52822 Chest 2V Frontal and Lat 16:32:44 CDT
--- OUTSIDE RECORDS SUMMARY | 2016-11-04 16:00 | XMS REPORT | Clinical Summary ---
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 Jmi Hui MD Encounter for removal of sutures [...] SOLN 1 drop PRN eye spasms TROPICAMIDE 94264696812 Active Samantha Stephan RMA Active RISPERDAL 4 MG ORAL TABS 1 tab at bedtime RISPERIDONE 63278930705 Active Samantha Stephan RMA Active LEVAQUIN 500 MG TABS 1 daily for infection LEVOFLOXACIN 82705887344 Active Suzan Boo APRN Active TESSALON PERLES 100 MG CAPS 1 three times a day as needed for cough BENZONATATE 37955215803 Active Suzan Boo APRN Active ZOFRAN 4 MG TABS 1 po q6hr PRN Nausea ONDANSETRON HCL No Longer Active Suzan Boo APRN Active FLUTICASONE PROPIONATE 50 MCG/ACT SUSP 2 sprays each nostril daily before bed. FLUTICASONE PROPIONATE 82651898372 No Longer Active Suzan Boo APRN Active ASPIRIN 325 MG ORAL TABS 1 tab q.d ASPIRIN 71242637288 No Longer Active Suzan Boo APRN Active HALOPERIDOL 10 MG ORAL TABS 1 tab q.d HALOPERIDOL 64388001325 No Longer Active Suzan Boo APRN Active GUAIFENESIN-CODEINE 100-10 MG/5ML SYRP 5ml every 4 to 6 hours as needed for cough GUAIFENESIN-CODEINE 54290140610 No Longer Active Suzan Boo APRN Active ZITHROMAX Z-EARNEST 250 MG TABS 2 today and then 1 daily for 4 days AZITHROMYCIN 25410691386 No Longer Active Suzan Boo APRN Active PREDNISONE 10 MG TABS 2 daily for 5 days then 1 daily for 5 days PREDNISONE 75974568871 Active Suzan Boo APRN Active CLONAZEPAM 1 MG ORAL TABS 1 twice a day and an additional 1 tablet every other day as needed for pseudoseizures or anxiety CLONAZEPAM 50148483633 Active Ahmet Carbajal MD Active HYDROCODONE-ACETAMINOPHEN 5-325 MG ORAL TABS 1 tab two times a day HYDROCODONE-ACETAMINOPHEN 56286037564 No Longer Active Ahmet Carbajal MD Active LAMICTAL 100 MG ORAL TABS 1 tab 2 times qd. LAMOTRIGINE 23104304497 Active Ahmet Carbajal MD Active PREDNISONE 20 MG TABS 2 daily for 5 days then 1 daily for 5 days PREDNISONE 06053350511 No Longer Active Ahmet Carbajal MD Active FLUTICASONE PROPIONATE 50 MCG/ACT SUSP 1 to 2 sprays each nostril daily for allergies FLUTICASONE PROPIONATE 31891656177 Active Tila Valenzuela Active BENADRYL 25 MG CAP 4 po at bedtime for insomnia DIPHENHYDRAMINE HCL 69509846604 No Longer Active Ahmet Carbajal MD Active ADVAIR DISKUS 250-50 MCG/DOSE INH AEPB 1 puff twice a day for asthma FLUTICASONE-SALMETEROL 45235773318 No Longer Active Ahmet Carbajal MD Active KLONOPIN 1 MG ORAL TABS 1 tab po TID CLONAZEPAM 78204630949 No Longer Active Ahmet Carbajal MD Active ABILIFY MAINTENA 400 MG IM SUSR 400mg injection every 26 days ARIPIPRAZOLE 36803170908 No Longer Active Ahmet Carbajal MD Active TRAMADOL HCL 50 MG TABS 1/2-1 tab TID PRN TRAMADOL HCL 11062741850 No Longer Active Ahmet Carbajal MD Active BACTRIM DS 800-160 MG TABS 1 twice a day SULFAMETHOXAZOLE- TRIMETHOPRIM 46742151707 No Longer Active Ahmet Carbajal MD Active PROAIR HFA 108 (90 BASE) MCG/ACT AERS 2 puffs four times a day as needed 2015 ALBUTEROL SULFATE 50171652287 Active Ahmet Carbajal MD Active EQ NICOTINE 21 MG/24HR TRANS PT24 Apply daily to stop smoking NICOTINE 24212595098 Active Ahmet Carbajal MD Active MONISTAT 7 COMBO PACK WOODROW 100 & 2 MG-% (9GM) VAG KIT 1 applicatorful per vagina q pm x 7 MICONAZOLE NITRATE 91754536563 No Longer Active Ahmet Carbajal MD Active FLAGYL 500 MG TAB 1 tablet by mouth bid METRONIDAZOLE 41690259979 No Longer Active Ahmet Carbajal MD Active OXYCODONE HCL ER 10 MG ORAL T12A 1/2 tab by mouth every 4 hours prn OXYCODONE HCL 48671954207 No Longer Active Ahmet Carbajal MD Active METHYLPREDNISOLONE 4 MG ORAL TABS po daily METHYLPREDNISOLONE 89816890509 No Longer Active Ahmet Carbajal MD Active LEVOFLOXACIN 500 MG ORAL TABS po daily LEVOFLOXACIN 93819629762 No Longer Active Ahmet Carbajal MD Active VIIBRYD 10 MG ORAL TABS Take 1 tablet once a day VILAZODONE HCL 44928274620 No Longer Active Ahmet Carbajal MD Active TOPAMAX 50 MG ORAL TABS 1 tab twice daily TOPIRAMATE 59410462681 No Longer Active Ahmet Carbajal MD Active DICLOFENAC SODIUM 50 MG TBEC 1 tablet by mouth four times daily PRN Pain 2015 DICLOFENAC SODIUM 07823634250 No Longer Active Ahmet Carbajal MD Active ADZENYS XR-ODT 6.3 MG ORAL TBED 1 tab po daily for ADHD AMPHETAMINE 13182115811 No Longer Active Ahmet Carbajal MD Active CHANTIX 1 MG TABS 1 twice a day to help quit smoking VARENICLINE TARTRATE 35436798877 No Longer Active Dipika Burgos MD Active CHANTIX STARTING MONTH EARNEST 0.5 MG X 11 & 1 MG X 42 TABS take as directed 2015 VARENICLINE TARTRATE 92733390217 No Longer Active Dipika Burgos MD Active TESSALON PERLES 100 MG CAP 1 to 2 tablets by mouth 3 times daily as needed for cough BENZONATATE 91712680603 No Longer Active Luigi Martínez APRN Active IMITREX 50 MG ORAL TABS 0.5 po x 1 PRN Headache. May repeat dose x 1 in 2 hours if needed SUMATRIPTAN SUCCINATE 46124794041 Active Ahmet Carbajal MD Active HYDROCODONE-ACETAMINOPHEN 5-325 MG TABS 1 to 2 four times a day as needed for pain use until can be seen by specialist HYDROCODONE- ACETAMINOPHEN 48020699966 No Longer Active Vishal Hui MD Active PROAIR HFA 108 (90 BASE) MCG/ACT AERS 2 puffs four times a day as needed 2015 ALBUTEROL SULFATE 68915326050 No Longer Active Vishal Hui MD Active PREDNISONE 20 MG TABS 2 daily for 5 days then 1 daily for 5 days PREDNISONE 10776830818 No Longer Active Vishal Hui MD Active ZITHROMAX Z-EARNEST 250 MG TABS 2 today and then 1 daily for 4 days AZITHROMYCIN 31408321975 No Longer Active Vishal Hui MD Active DICLOFENAC POTASSIUM TABS Take 1 tablet twice a day (pt. is not sure of the dose.) DICLOFENAC POTASSIUM TABS 50537620328 No Longer Active Vishal Hui MD Active VERAPAMIL HCL ER 120 MG ORAL CR-TABS Take 1 tablet by mouth twice a day. VERAPAMIL HCL 36925284893 Active Vishal Hui MD Active FLAGYL 500 MG TAB 1 tablet by mouth bid METRONIDAZOLE 70750300683 No Longer Active Vishal Hui MD Active VALIUM 5 MG TAB Take 1-2 tablets daily DIAZEPAM 30165250166 No Longer Active Fabiola Johnson APRN Active METOPROLOL TARTRATE 25 MG ORAL TABS 1/2 tablet twice daily for heart rate and blood pressure METOPROLOL TARTRATE 25389450918 No Longer Active Fabiola Johnson APRN Active MIRALAX ORAL POWD 17GMS DAILY IN WATER POLYETHYLENE GLYCOL 3350 79475352240 Active TAMARA Casey Active MIRALAX PACK 1 po qd PRN Constipation POLYETHYLENE GLYCOL 3350 35460457748 No Longer Active Ahmet Carbajal MD Active MINIPRESS 2 MG CAPS 4 cap po at night PRAZOSIN HCL 00349459217 No Longer Active Ahmet Carbajal MD Active PIROXICAM 20 MG CAPS 1 cap po qd PRN Pain PIROXICAM 08570801561 No Longer Active Ahmet Carbajal MD Active TRAMADOL HCL 50 MG TABS 1-2 po TID PRN Pain TRAMADOL HCL 41476486267 No Longer Active Ahmet Carbajal MD Active METOPROLOL TARTRATE 50 MG TAB 1 po bid METOPROLOL TARTRATE 74423923292 No Longer Active Ahmet Carbajal MD Active ABILIFY 15 MG ORAL TABS 1 tab daily ARIPIPRAZOLE 61852610099 No Longer Active Ahmet Carbajal MD Active PROZAC 20 MG ORAL CAPS 1 tab daily FLUOXETINE HCL 80657057131 No Longer Active Ahmet Carbajal MD Active AMBIEN 5 MG ORAL TABS 1 tab at bedtime ZOLPIDEM TARTRATE 96647170899 No Longer Active Ahmet Carbajal MD Active PREDNISONE 20 MG TAB 2 tabs daily for 4 days, 1 tab daily for 4 days, 1/2 tab daily for 4 days PREDNISONE 11281421604 No Longer Active Ahmet Carbajal MD Active KEFLEX 500 MG CAP 1 po TID x 10 days CEPHALEXIN 69933376248 No Longer Active Vishal Hui MD Active SAPHRIS 5 MG SUBL 1 po bid ASENAPINE MALEATE 59426994503 No Longer Active Luigi Martínez PRIMING MIXTURE CARRIER Active LATUDA 80 MG TABS Take one by mouth daily LURASIDONE HCL 09422114393 No Longer Active Jillina Fradwightl PRIMING MIXTURE CARRIER Active AMLODIPINE BESYLATE 5 MG TABS 1 tablet by mouth daily AMLODIPINE BESYLATE 38357566921 No Longer Active Luigi Martínez APRN Active AMITRIPTYLINE HCL 100 MG TAB one at hs AMITRIPTYLINE HCL 28589870474 No Longer Active Vishal Hui MD Active TRAZODONE HCL 100 MG TAB take 1 at bedtime TRAZODONE HCL 04439570700 No Longer Active Vishal Hui MD Active VYVANSE 40 MG CAPS 1 daily, LISDEXAMFETAMINE DIMESYLATE 17631550346 No Longer Active Vishal Hui MD Active IBUPROFEN 600 MG TAB 1 po TID PRN IBUPROFEN 90240354830 No Longer Active Vishal Hui MD Active PROZAC 20 MG CAP Take one by mouth daily FLUOXETINE HCL 32544495388 No Longer Active Vishal Hui MD Active BACTRIM DS 800-160 MG TABS 1 pill by mouth twice daily SULFAMETHOXAZOLE-TRIMETHOPRIM 56042044296 No Longer Active Sahara Rodriguez MD PhD Active DIFLUCAN 150 MG TAB 1 tablet by mouth daily FLUCONAZOLE 11314771703 No Longer Active Vishal Hui MD Active TIZANIDINE HCL 4 MG TABS 1 po q6hr PRN Muscle Spasm/Back Pain TIZANIDINE HCL 07391990616 Active Vishal Hui MD Active CLINDAMYCIN HCL 150 MG CAPS 1 four times a day CLINDAMYCIN HCL 00250422350 No Longer Active Neeraj Collins MD Active KEFLEX 500 MG ORAL CAPS 1 cap QID by mouth CEPHALEXIN 83803555671 No Longer Active Neeraj Collins MD Active DIFLUCAN 150 MG TABS 1 pill every other day x 2 doses FLUCONAZOLE 83249644579 No Longer Active Sahara Rodriguez MD PhD Active MELATONIN 3 MG CAPS 2 po q hs MELATONIN 11730382999 No Longer Active Sahara Rodriguez MD PhD Active MULTIVITAMINS CAPS Take one by mouth daily MULTIPLE VITAMIN 08571762414 No Longer Active Sahara Rodriguez MD PhD Active BACTRIM DS 800-160 MG TAB 1 tab by mouth twice daily TRIMETHOPRIM-SULFAMETHOXAZOLE 28379353895 No Longer Active Sahara Rodriguez MD PhD Active [facility] PROBIOTIC ORAL CHEW 2 daily po PROBIOTIC PRODUCT 72878685119 No Longer Active Sahara Rodriguez MD PhD Active BACTRIM DS 800-160 MG TABS 1 po BID x 7 days SULFAMETHOXAZOLE-TRIMETHOPRIM 80922216354 No Longer Active Vishal Hui MD Active CHANTIX STARTING MONTH EARNEST 0.5 MG X 11 & 1 MG X 42 TABS 0.5mg daily for 3 days , then 0.5mg BID for 4 days, then 1mg BID VARENICLINE TARTRATE 31005137513 No Longer Active TAMARA Gray Active VERAPAMIL HCL CR 120 MG TAB CR 1 po bid VERAPAMIL HCL 38951056664 No Longer Active Vishal Hui MD Active METOPROLOL SUCCINATE 50 MG TB24 1 tablet by mouth daily METOPROLOL SUCCINATE 90520718721 No Longer Active Vishal Hui MD Active SAPHRIS 10 MG SUBL 1 tab po bid ASENAPINE MALEATE 16709101463 No Longer Active Vishal Hui MD Active LISINOPRIL 20 MG TABS 1 tab po qd LISINOPRIL 75534113199 No Longer Active Vishal Hui MD Active LATUDA 20 MG TABS Take one by mouth daily LURASIDONE HCL 17552709328 No Longer Active Vishal Hui MD Active TRAZODONE HCL 50 MG TABS 1/2 tab po qd prn for anxiety TRAZODONE HCL 34489537186 No Longer Active Vishal Hui MD Active OMEPRAZOLE 20 MG TBEC 1 po q a.m. 30min prior to first food intake OMEPRAZOLE 00648584958 Active TAMARA Casey Active RANITIDINE HCL 150 MG CAPS 1 twice a day RANITIDINE HCL 47156277769 Active Luigi Martínez PRIMING MIXTURE CARRIER Active LINZESS 290 MCG CAPS Take one by mouth daily LINACLOTIDE 11413249479 No Longer Active Vishal Hui MD Active SAPHRIS 5 MG SUBL 1 tab po qd ASENAPINE MALEATE 67835366316 No Longer Active Vishal Hui MD Active ZALEPLON 10 MG CAPS 1 cap po every other night ZALEPLON 97683958153 No Longer Active Vishal Hui MD Active LYRICA 50 MG CAPS 1 tab po TID PREGABALIN 86128318148 No Longer Active Vishal Hui MD Active LORATADINE 10 MG TABS 1 tab po qd LORATADINE 24817011554 No Longer Active Vishal Hui MD Active VERAPAMIL HCL ER 180 MG CR-TABS 1 tab po bid VERAPAMIL HCL 35100688704 No Longer Active Vishal Hui MD Active MIRALAX POWD 1 capfull once daily POLYETHYLENE GLYCOL 3350 82551649589 No Longer Active Vishal uHi MD Active PREDNISONE 20 MG TABS 1 tab po qd PREDNISONE 66885106866 No Longer Active Renzo Thornton DO Active LEVOFLOXACIN 500 MG TABS 1 tab po qd LEVOFLOXACIN 27113434686 No Longer Active Renzo Thornton DO Active BUSPIRONE HCL 15 MG TABS 1 tab po TID BUSPIRONE HCL 33556751272 No Longer Active Renzo Thornton DO Active BENZTROPINE MESYLATE 1 MG TABS 1 tab po qd BENZTROPINE MESYLATE 04428336097 No Longer Active Renzo Thornton DO Active ATENOLOL 25 MG TABS 1 tab po qd ATENOLOL 47925915372 No Longer Active Renzo Thornton DO Active ESCITALOPRAM OXALATE 20 MG TABS 1 tab po qd ESCITALOPRAM OXALATE 67617621241 No Longer Active Renzo Thornton DO Active ADVAIR DISKUS 250-50 MCG/DOSE AEPB 1 puff BID FLUTICASONE-SALMETEROL 34872982859 No Longer Active Renzo Thornton DO Active PREDNISONE 20 MG TAB 2 tabs daily for 3 days, 1 tab daily for 3 days, 1/2 tab daily for 2 days PREDNISONE 43247231537 No Longer Active Vishal Hui MD Active CEFDINIR 300 MG CAPS by mouth twice a day CEFDINIR 55835432788 No Longer Active Vishal Hui MD Active LANSOPRAZOLE 30 MG CPDR 1 cap po qd LANSOPRAZOLE 52834837981 No Longer Active Vishal Hui MD Active BACLOFEN 20 MG TABS 1 tab po tid BACLOFEN 46333871640 No Longer Active Vishal Hui MD Active ADVAIR DISKUS 250-50 MCG/DOSE AEPB 1 puff BID ADVAIR DISKUS 250-50 MCG/DOSE AEPB FLUTICASONE-SALMETEROL Inactive ESCITALOPRAM OXALATE 20 MG TABS 1 tab po qd ESCITALOPRAM OXALATE 20 MG TABS 061867 ESCITALOPRAM OXALATE Inactive ATENOLOL 25 MG TABS 1 tab po qd ATENOLOL 25 MG TABS 588983 ATENOLOL Inactive BENZTROPINE MESYLATE 1 MG TABS 1 tab po qd BENZTROPINE MESYLATE 1 MG TABS 034216 BENZTROPINE MESYLATE Inactive BUSPIRONE HCL 15 MG TABS 1 tab po TID BUSPIRONE HCL 15 MG TABS 488598 BUSPIRONE HCL Inactive LEVOFLOXACIN 500 MG TABS 1 tab po qd LEVOFLOXACIN 500 MG TABS 036079 LEVOFLOXACIN Inactive PREDNISONE 20 MG TABS 1 tab po qd PREDNISONE 20 MG TABS 969081 PREDNISONE Inactive MIRALAX POWD 1 capfull once daily MIRALAX POWD 724724 POLYETHYLENE GLYCOL 3350 Inactive VERAPAMIL HCL ER 180 MG CR-TABS 1 tab po bid VERAPAMIL HCL ER 180 MG CR-TABS VERAPAMIL HCL Inactive LORATADINE 10 MG TABS 1 tab po qd LORATADINE 10 MG TABS 149565 LORATADINE Inactive LYRICA 50 MG CAPS 1 tab po TID LYRICA 50 MG CAPS PREGABALIN Inactive ZALEPLON 10 MG CAPS 1 cap po every other night ZALEPLON 10 MG CAPS 692125 ZALEPLON Inactive SAPHRIS 5 MG SUBL 1 tab po qd SAPHRIS 5 MG SUBL ASENAPINE MALEATE Inactive TRAZODONE HCL 50 MG TABS 1/2 tab po qd prn for anxiety TRAZODONE HCL 50 MG TABS 670472 TRAZODONE HCL Inactive LATUDA 20 MG TABS Take one by mouth daily LATUDA 20 MG TABS LURASIDONE HCL Inactive LISINOPRIL 20 MG TABS 1 tab po qd LISINOPRIL 20 MG TABS 740033 LISINOPRIL Inactive SAPHRIS 10 MG SUBL 1 [...] twice daily BACTRIM DS 800-160 MG TAB 007000 TRIMETHOPRIM-SULFAMETHOXAZOLE Inactive MULTIVITAMINS CAPS Take one by mouth daily MULTIVITAMINS CAPS MULTIPLE VITAMIN Inactive MELATONIN 3 MG CAPS 2 po q hs MELATONIN 3 MG CAPS 19950526 MELATONIN Inactive KEFLEX 500 MG ORAL CAPS 1 cap QID by mouth KEFLEX 500 MG ORAL CAPS 561319 CEPHALEXIN Inactive CLINDAMYCIN HCL 150 MG CAPS 1 four times a day CLINDAMYCIN HCL 150 MG CAPS 705373 CLINDAMYCIN HCL Inactive DIFLUCAN 150 MG TAB 1 tablet by mouth daily DIFLUCAN 150 MG TAB 440791 FLUCONAZOLE Inactive PROZAC 20 MG CAP Take one by mouth daily PROZAC 20 MG CAP 582117 FLUOXETINE HCL Inactive IBUPROFEN 600 MG TAB 1 po TID PRN IBUPROFEN 600 MG TAB 005497 IBUPROFEN Inactive VYVANSE 40 MG CAPS 1 daily, VYVANSE 40 MG CAPS LISDEXAMFETAMINE DIMESYLATE Inactive TRAZODONE HCL 100 MG TAB take 1 at bedtime TRAZODONE HCL 100 MG TAB 805940 TRAZODONE HCL Inactive AMITRIPTYLINE HCL 100 MG TAB one at hs AMITRIPTYLINE HCL 100 MG TAB 692539 AMITRIPTYLINE HCL Inactive AMLODIPINE BESYLATE 5 MG TABS 1 tablet by mouth daily AMLODIPINE BESYLATE 5 MG TABS 150962 AMLODIPINE BESYLATE Inactive LATUDA 80 MG TABS Take one by mouth daily LATUDA 80 MG TABS LURASIDONE HCL Inactive SAPHRIS 5 MG SUBL 1 po bid SAPHRIS 5 MG SUBL ASENAPINE MALEATE Inactive PREDNISONE 20 MG TAB 2 tabs daily for 4 days, 1 tab daily for 4 days, 1/2 tab daily for 4 days PREDNISONE 20 MG TAB 604840 PREDNISONE Inactive AMBIEN 5 MG ORAL TABS 1 tab at bedtime AMBIEN 5 MG ORAL TABS 060457 ZOLPIDEM TARTRATE Inactive PROZAC 20 MG ORAL CAPS 1 tab daily PROZAC 20 MG ORAL CAPS 416184 FLUOXETINE HCL Inactive ABILIFY 15 MG ORAL TABS 1 tab daily ABILIFY 15 MG ORAL TABS 304242 ARIPIPRAZOLE Inactive METOPROLOL TARTRATE 50 MG TAB 1 po bid METOPROLOL TARTRATE 50 MG TAB 976099 METOPROLOL TARTRATE Inactive TRAMADOL HCL 50 MG TABS 1-2 po TID PRN Pain TRAMADOL HCL 50 MG TABS 905067 TRAMADOL HCL Inactive PIROXICAM 20 MG CAPS 1 cap po qd PRN Pain PIROXICAM 20 MG CAPS 188620 PIROXICAM Inactive MINIPRESS 2 MG CAPS 4 cap po at night MINIPRESS 2 MG CAPS 086501 PRAZOSIN HCL Inactive MIRALAX PACK 1 po qd PRN Constipation MIRALAX PACK 863689 POLYETHYLENE GLYCOL 3350 Inactive METOPROLOL TARTRATE 25 MG ORAL TABS 1/2 tablet twice daily for heart rate and blood pressure METOPROLOL TARTRATE 25 MG ORAL TABS 365711 METOPROLOL TARTRATE Inactive VALIUM 5 MG TAB Take 1-2 tablets daily VALIUM 5 MG TAB 890784 DIAZEPAM Inactive FLAGYL 500 MG TAB 1 tablet by mouth bid FLAGYL 500 MG TAB 125651 METRONIDAZOLE Inactive DICLOFENAC POTASSIUM TABS Take 1 tablet twice a day (pt. is not sure of the dose.) DICLOFENAC POTASSIUM TABS DICLOFENAC POTASSIUM TABS Inactive ZITHROMAX Z-EARNEST 250 MG TABS 2 today and then 1 daily for 4 days ZITHROMAX Z-EARNEST 250 MG TABS 7835317 AZITHROMYCIN Inactive PREDNISONE 20 MG TABS 2 daily for 5 days then 1 daily for 5 days PREDNISONE 20 MG TABS 250746 PREDNISONE Inactive PROAIR HFA 108 (90 BASE) MCG/ACT AERS 2 puffs four times a day as needed 2015 PROAIR HFA 108 (90 BASE) MCG/ACT AERS ALBUTEROL SULFATE Inactive HYDROCODONE-ACETAMINOPHEN 5-325 MG TABS 1 to 2 four times a day as needed for pain use until can be seen by specialist HYDROCODONE- ACETAMINOPHEN 5-325 MG TABS 312737 HYDROCODONE-ACETAMINOPHEN Inactive TESSALON PERLES 100 MG CAP 1 to 2 tablets by mouth 3 times daily as needed for cough TESSALON PERLES 100 MG CAP 638203 BENZONATATE Inactive CHANTIX STARTING MONTH EARNEST 0.5 [...] Pain 2015 DICLOFENAC SODIUM 50 MG TBEC 036590 DICLOFENAC SODIUM Inactive TOPAMAX 50 MG ORAL TABS 1 tab twice daily TOPAMAX 50 MG ORAL TABS 482782 TOPIRAMATE Inactive VIIBRYD 10 MG ORAL TABS Take 1 tablet once a day VIIBRYD 10 MG ORAL TABS VILAZODONE HCL Inactive LEVOFLOXACIN 500 MG ORAL TABS po daily LEVOFLOXACIN 500 MG ORAL TABS 237033 LEVOFLOXACIN Inactive METHYLPREDNISOLONE 4 MG ORAL TABS po daily METHYLPREDNISOLONE 4 MG ORAL TABS 897674 METHYLPREDNISOLONE Inactive OXYCODONE HCL ER 10 MG ORAL T12A 1/2 tab by mouth every 4 hours prn OXYCODONE HCL ER 10 MG ORAL T12A OXYCODONE HCL Inactive FLAGYL 500 MG TAB 1 tablet by mouth bid FLAGYL 500 MG TAB 595437 METRONIDAZOLE Inactive MONISTAT 7 COMBO PACK WOODROW 100 & 2 MG-% (9GM) VAG KIT 1 applicatorful per vagina q pm x 7 MONISTAT 7 COMBO PACK WOODROW 100 & 2 MG-% (9GM) VAG KIT MICONAZOLE NITRATE Inactive BACTRIM DS 800-160 MG TABS 1 twice a day BACTRIM DS 800-160 MG TABS 404539 SULFAMETHOXAZOLE-TRIMETHOPRIM Inactive TRAMADOL HCL 50 MG TABS 1/2-1 tab TID PRN TRAMADOL HCL 50 MG TABS 400451 TRAMADOL HCL Inactive ABILIFY MAINTENA 400 MG IM SUSR 400mg injection every 26 days ABILIFY MAINTENA 400 MG IM SUSR ARIPIPRAZOLE Inactive KLONOPIN 1 MG ORAL TABS 1 tab po TID KLONOPIN 1 MG ORAL TABS 604668 CLONAZEPAM Inactive ADVAIR DISKUS 250-50 MCG/DOSE INH AEPB 1 puff twice a day for asthma ADVAIR DISKUS 250-50 MCG/DOSE INH AEPB FLUTICASONE- SALMETEROL Inactive BENADRYL 25 MG CAP 4 po at bedtime for insomnia BENADRYL 25 MG CAP DIPHENHYDRAMINE HCL Inactive PREDNISONE 20 MG TABS 2 daily for 5 days then 1 daily for 5 days PREDNISONE 20 MG TABS 445404 PREDNISONE Inactive HYDROCODONE-ACETAMINOPHEN 5-325 MG ORAL TABS 1 tab two times a day HYDROCODONE-ACETAMINOPHEN 5-325 MG ORAL TABS 256635 HYDROCODONE-ACETAMINOPHEN Inactive ZITHROMAX Z-EARNEST 250 MG TABS 2 today and then 1 daily for 4 days ZITHROMAX Z-EARNEST 250 MG TABS 6156690 AZITHROMYCIN Inactive GUAIFENESIN-CODEINE 100-10 MG/5ML SYRP 5ml every 4 to 6 hours as needed for cough GUAIFENESIN-CODEINE 100-10 MG/5ML SYRP 276464 GUAIFENESIN-CODEINE Inactive HALOPERIDOL 10 MG ORAL TABS 1 tab q.d HALOPERIDOL 10 MG ORAL TABS 724609 HALOPERIDOL Inactive ASPIRIN 325 MG ORAL TABS 1 tab q.d ASPIRIN 325 MG ORAL TABS 312265 ASPIRIN Inactive FLUTICASONE PROPIONATE 50 MCG/ACT SUSP 2 sprays each nostril daily before bed. FLUTICASONE PROPIONATE 50 MCG/ACT SUSP 7276898 FLUTICASONE PROPIONATE Inactive ZOFRAN 4 MG TABS 1 po q6hr PRN Nausea ZOFRAN 4 MG TABS 054768 ONDANSETRON HCL Inactive CEFDINIR 300 MG CAPS by mouth twice a day CEFDINIR 300 MG CAPS 998962 CEFDINIR Inactive PREDNISONE 20 MG TAB 2 tabs daily for 3 days, 1 tab daily for 3 days, 1/2 tab daily for 2 days PREDNISONE 20 MG TAB 489336 PREDNISONE Inactive BACTRIM DS 800-160 MG TABS 1 po BID x 7 days BACTRIM DS 800-160 MG TABS 19820521 SULFAMETHOXAZOLE-TRIMETHOPRIM Inactive DIFLUCAN 150 MG TABS 1 pill every other day x 2 doses DIFLUCAN 150 MG TABS 026318 FLUCONAZOLE Inactive BACTRIM DS 800-160 MG TABS 1 pill by mouth twice daily BACTRIM DS 800-160 MG TABS 743222 SULFAMETHOXAZOLE-TRIMETHOPRIM Inactive KEFLEX 500 MG CAP 1 po TID x 10 days KEFLEX 500 MG CAP 444608 CEPHALEXIN Inactive Advance Directives Directive Description Start [...] % 11.0-15.0 platelet count 443 THOUSAND/UL 10*3/mm3 722-719 9532/03/01 mean platelet volume 8.2 fL 7.5-12.5 Lab [...] 369 10^3/MM^3 10*3/mm3 142-424 Lab Report: Chlamydia/GC APTIMA/[id number] - Lab chlamydia DNA probe NOT DETECTED NOT DETECTED Lab Report: Chlamydia/GC APTIMA/[id number] - Microbiology Neisseria gonorrhoeae DNA probe NOT DETECTED NOT DETECTED Lab Report: Chlamydia/GC APTIMA/87841, Urinalysis, Complete, with Reflex ... - Lab chlamydia DNA probe NOT DETECTED NOT DETECTED Lab Report: Chlamydia/GC APTIMA/[id number], Urinalysis, Complete, with Reflex ... - Microbiology Neisseria gonorrhoeae DNA probe NOT DETECTED NOT DETECTED Lab Report: Chlamydia/GC APTIMA/[id number], Urinalysis, Complete, with Reflex ... - Urinalysis microalbumin/total urine volume 2 mg/L Units converted. See lab report for original value. microalbumin/creatinine ratio, urine 9 MCG/MG CREAT mg/L <30 Lab Report: Comp. Metabolic Panel - Chemistry sodium, serum 142 mmol/L 959-978 0202/06/08 carbon dioxide, venous blood 27.6 mmol/L 21.0-32.0 potassium, serum 4.0 mmol/L 3.5-5.2 chloride, serum 105 mmol/L 98-107 blood glucose 95 mg/dL 65-110 urea nitrogen, blood 8 mg/dL 7-18 creatinine, serum 0.75 mg/dL 0.55-1.30 alanine aminotransferase (SGPT), serum 49 U/L 12-78 aspartate aminotransferase (SGOT), serum 28 U/L 15-37 calcium, serum 9.4 mg/dL 8.5-10.1 bilirubin, serum, total 0.30 mg/dL 0.00-1.00 sodium, serum 140 mmol/L 897-005 6574/08/08 carbon dioxide, venous blood 33.7 mmol/L 21.0-32.0 [...] mg/dL Encounters Code Encounter Date Provider Facility CPT-78914 Level 3 Est. Patient 15:28:23 PHARMACY SALES ASSISTANT Suzan Boo [facility] CPT-80984 Level 4 Est. Patient 10:20:54 PHARMACY SALES ASSISTANT Suzan Boo [facility] CPT-59568 Level 3 Est. Patient 11:47:37 PHARMACY SALES ASSISTANT Ahmet Carbajal MD [facility] CPT-94659 Level 3 Est. Patient 10:40:11 PHARMACY SALES ASSISTANT Ahmet Carbajal MD [facility] CPT-39675 Level 3 Est. Patient 15:07:06 PHARMACY SALES ASSISTANT Neeraj Collins MD [facility] CPT-43791 Level 4 Est. 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 Patient 13:59:59 CDT Luigi Martínez [facility] CPT-98212 Level 3 Est. Patient 18:18:53 CDT Neeraj Collins MD [facility] CPT-22987 Level 3 Est. Patient 15:50:44 CDT Vishal Hui MD [facility] CPT-92226 Level 3 Est. Patient 11:36:17 CDT Ahmet Carbajal MD [facility] CPT-31923 Level 3 Est. Patient 13:29:16 CDT Vishal Hui MD [facility] CPT-78890 Level 3 Est. Patient 14:27:52 CDT Neeraj Collins MD [facility] CPT-09018 Level 3 Est. Patient 08:56:03 CDT Luigi Martínez [facility] CPT-54091 Level 4 Est. Patient 12:11:48 CDT [facility] [place] CPT-25019 Level 3 New Patient 16:53:37 CDT Albert Caldera MD [facility] [place] CPT-18646 Level 3 Est. Patient 11:25:49 CDT Renzo Thornton DO [facility] [place] CPT-19234 Level 3 Est. Patient 15:22:01 CDT Ahmet Carbajal MD [facility] [place] CPT-23381 Level 4 Est. Patient 09:00:51 PHARMACY SALES ASSISTANT Vishal Hui MD [facility] [place] CPT-05617 Level 3 Est. Patient 11:37:33 PHARMACY SALES ASSISTANT Vishal Hui MD [facility] CPT-04700 Level 3 Est. Patient 08:41:09 PHARMACY SALES ASSISTANT Vishal Hui MD [facility] [place] CPT-46752 Level 4 Est. Patient 10:19:35 PHARMACY SALES ASSISTANT Vishal Hui MD [facility] CPT-18306 Level 3 Est. Patient 13:35:45 CDT Vishal Hui MD [facility] CPT-23505 Level 4 Est. Patient 10:08:37 CDT Vishal Hui MD [facility] CPT-78532 Level 3 Est. Patient 11:22:10 CDT Vishal Hui MD [facility] CPT-91882 Level 3 Est. Patient 11:03:32 CDT Sahara Rodriguez MD PhD [facility] [place] CPT-03165 Level 3 Est. Patient 09:41:35 CDT Vishal Hui MD [facility] [place] CPT-54774 Level 3 Est. Patient 12:00:41 CDT Neeraj Collins MD [facility] CPT-16915 Level 3 Est. Patient 09:16:24 CDT Vishal Hui MD [facility] CPT-65237 Level 4 Est. Patient 13:59:09 CDT Neeraj Collins MD [facility] CPT-44550 Level 3 Est. Patient 15:19:43 CDT Renzo Thornton [facility] CPT-48491 Level 3 Est. Patient 18:10:26 CDT Sahara Rodriguez MD [facility] CPT-13865 Level 3 Est. Patient 14:49:50 CDT Vishal Hui MD [facility] CPT-18290 Level 4 Est. Patient 18:41:46 CDT Neeraj Collins MD [facility] CPT-10539 Level 4 Est. Patient 09:18:38 PHARMACY SALES ASSISTANT Vishal Hui MD [facility] [place] CPT-74494 Level 3 Est. Patient 14:43:55 PHARMACY SALES ASSISTANT Vishal Hui MD [facility] CPT-56049 Level 3 Est. Patient 15:26:33 PHARMACY SALES ASSISTANT Sahara Rodriguez MD PhD [facility] CPT-49906 Level 3 Est. Patient 10:32:14 PHARMACY SALES ASSISTANT Vishal Hui MD [facility] CPT-00320 Level 3 Est. Patient 15:12:52 PHARMACY SALES ASSISTANT Vishal Hui MD [facility] CPT-39414 Level 4 Est. Patient 09:19:27 CDT Vishal Hui MD [facility] [place] CPT-50231 Level 3 Est. Patient 15:53:00 CDT Renzo Thornton [facility] CPT-59563 Level 3 Est. Patient 15:50:30 CDT Renzo Thornton [facility] CPT-44068 Level 3 Est. Patient 16:55:24 CDT Vishal Hui MD [facility] Procedures Code Procedure Name Date Entry Date Standard Description CPT-G0439 [facility] Annual Wellness Exam 09:30:58 PHARMACY SALES ASSISTANT CPT-78269 TSH - LAB USE ONLY 08:50:26 PHARMACY SALES ASSISTANT CPT-23336 CBC - LAB USE ONLY 08:50:26 PHARMACY SALES ASSISTANT CPT-21419 Venipuncture Draw Fee 08:50:26 PHARMACY SALES ASSISTANT CPT-80766 Abx/Therapy Injection 17:34:30 PHARMACY SALES ASSISTANT CPT-35718 Nexplanon Removal with Reinsertion 14:09:32 CDT CPT-J7307 Nexplanon (Implant) 14:09:32 CDT CPT-OV Office Visit 14:09:32 CDT CPT-72575 UA w micro - LAB USE ONLY 16:21:13 CDT CPT-65148 Wet Mount - LAB USE ONLY 16:21:13 CDT CPT-97347 First Vx - Ix admin for Medicare patients 14:37:47 CDT CPT-38423 Fluzone Preservative Free Intramuscular Suspension 14:37 :47 CDT CPT-06407 Abx/Therapy Injection 13:54:22 CDT CPT-52146 Abx/Therapy Injection 08:47:09 CDT CPT-12279 Abx/Therapy Injection 13:29:56 CDT CPT-76842 Abx/Therapy Injection 08:36:16 CDT CPT-82466 Wet Mount - LAB USE ONLY 17:44:58 CDT CPT-11989 UA w micro - LAB USE ONLY 17:44:58 CDT CPT-52337 CMP - LAB USE ONLY 17:44:58 CDT CPT-86344 Venipuncture Draw Fee 17:44:58 CDT CPT-69124 Cervical Min 4V - XRAY USE ONLY 09:01:40 CDT CPT-54229 Chest 2V Frontal and Lat - XRAY USE ONLY 11:06:31 CDT CPT-39334 EKG Trac and Interp - XRAY USE ONLY 11:31:43 CDT 08/26 CPT-J3420 Vitamin B12 1000mcg (Cyanocobalamin) 08:10:26 PHARMACY SALES ASSISTANT 04/12 CPT-45410 Abx/Therapy Injection 08:10:26 PHARMACY SALES ASSISTANT CPT-G0438 Initial Annual Wellness Exam 19:01:01 PHARMACY SALES ASSISTANT CPT-J3420 Vitamin B12 1000mcg (Cyanocobalamin) 16:57:46 CDT 08/14 CPT-92846 Recombivax HB Injection Suspension 5 MCG/0.5ML 08:37:50 PHARMACY SALES ASSISTANT CPT-41598 Immunization Single Admin 08:37:50 PHARMACY SALES ASSISTANT CPT-J3420 Vitamin B12 1000mcg (Cyanocobalamin) 08:32:16 PHARMACY SALES ASSISTANT 03/11 CPT-51499 Abx/Therapy Injection 08:32:16 PHARMACY SALES ASSISTANT CPT-74288 Chest 2V Frontal and Lat 11:46:38 PHARMACY SALES ASSISTANT CPT-95620 Venipuncture Draw Fee 09:12:45 PHARMACY SALES ASSISTANT CPT-J3420 Vitamin B12 1000mcg (Cyanocobalamin) 08:50:15 PHARMACY SALES ASSISTANT 02/08 CPT-09868 Abx/Therapy Injection 08:50:15 PHARMACY SALES ASSISTANT CPT-Cryo Cryotherapy 10:19:35 PHARMACY SALES ASSISTANT CPT-000 Give Appropriate Flu Vaccine 09:22:16 CDT CPT-J3420 Vitamin B12 1000mcg (Cyanocobalamin) 19:08:57 CDT 01/11 CPT-27494 Abx/Therapy Injection 19:08:57 CDT CPT-J3420 Vitamin B12 1000mcg (Cyanocobalamin) 08:19:08 CDT 12/11 CPT-87026 Abx/Therapy Injection 08:19:08 CDT CPT-J3420 Vitamin B12 1000mcg (Cyanocobalamin) 14:48:00 CDT 11/09 CPT-48310 Abx/Therapy Injection 14:47:59 CDT CPT-J3420 Vitamin B12 1000mcg (Cyanocobalamin) 08:34:04 CDT 10/09 CPT-37068 Abx/Therapy Injection 08:34:04 CDT CPT-J3420 Vitamin B12 1000mcg (Cyanocobalamin) 09:18:52 CDT 09/11 CPT-96261 Abx/Therapy Injection 09:18:52 CDT CPT-J3420 Vitamin B12 1000mcg (Cyanocobalamin) 08:35:44 CDT 09/04 CPT-82120 Abx/Therapy Injection 08:35:44 CDT CPT-77928 Immunization Single Admin 11:07:16 CDT CPT-98396 Hepatitis B adult IM 11:07:16 CDT CPT-J3420 Vitamin B12 1000mcg (Cyanocobalamin) 11:00:49 CDT 08/28 CPT-J1040 Depo Medrol 80 mg (Methyl Prednisolone Acetate) 11:00: 49 CDT CPT-00770 Abx/Therapy Injection 11:00:49 CDT CPT-J1040 Depo Medrol 80 mg (Methyl Prednisolone Acetate) 09:16: 23 CDT CPT-J3420 Vitamin B12 1000mcg (Cyanocobalamin) 08:27:05 CDT 08/20 CPT-36736 Abx/Therapy Injection 08:27:05 CDT CPT-42610 Recombivax HB Injection Suspension 5 MCG/0.5ML 10:00:41 CDT CPT-03580 Administration single or combination vaccine inc oral 10 :00:41 CDT CPT-02274 Sono transvag pelvis non OB uterus ovaries cervix 16:36: 57 CDT CPT-39825 LS spine comp w obliq 09:50:55 PHARMACY SALES ASSISTANT CPT-08798 Abd compl w upright 09:50:55 PHARMACY SALES ASSISTANT CPT-J1100 Decadron 4mg (Dexamethasone) 15:51:24 PHARMACY SALES ASSISTANT CPT-J1030 Depo Medrol 40 mg (Methyl Prednisolone Acetate) 15:51: 24 PHARMACY SALES ASSISTANT CPT-82096 Abx/Therapy Injection 15:51:24 PHARMACY SALES ASSISTANT CPT-J1100 Decadron 4mg (Dexamethasone) 15:26:33 PHARMACY SALES ASSISTANT CPT-J1030 Depo Medrol 40 mg (Methyl Prednisolone Acetate) 15:26: 33 PHARMACY SALES ASSISTANT CPT-58374 Sono retroperitoneal complete kidneys and bladder 17:15: 30 CDT CPT-31594 Abd compl w upright 16:09:25 CDT CPT-J1100 Decadron 8mg (Dexamethasone) 17:07:57 CDT CPT-94472 Abx/Therapy Injection 17:07:57 CDT CPT-J1100 Decadron 8mg (Dexamethasone) 16:55:24 CDT CPT-17511 Chest 2V Frontal and Lat 16:32:44 CDT
--- OUTSIDE RECORDS SUMMARY | 2016-11-04 16:03 | XMS REPORT | Clinical Summary ---
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 V72.31 Active Suzan Boo [...] SOLN 1 drop PRN eye spasms TROPICAMIDE 28693726331 Active Samantha Stephan RMA Active RISPERDAL 4 MG ORAL TABS 1 tab at bedtime RISPERIDONE 36312315314 Active Samantha Stephan RMA Active LEVAQUIN 500 MG TABS 1 daily for infection LEVOFLOXACIN 88818039881 Active Suzan Boo APRN Active TESSALON PERLES 100 MG CAPS 1 three times a day as needed for cough BENZONATATE 12240969209 Active Suzan Boo APRN Active ZOFRAN 4 MG TABS 1 po q6hr PRN Nausea ONDANSETRON HCL No Longer Active Suzan Boo APRN Active FLUTICASONE PROPIONATE 50 MCG/ACT SUSP 2 sprays each nostril daily before bed. FLUTICASONE PROPIONATE 99297401488 No Longer Active Suzan Boo APRN Active ASPIRIN 325 MG ORAL TABS 1 tab q.d ASPIRIN 30500732442 No Longer Active Suzan Boo APRN Active HALOPERIDOL 10 MG ORAL TABS 1 tab q.d HALOPERIDOL 79528137832 No Longer Active Suzan Boo APRN Active GUAIFENESIN-CODEINE 100-10 MG/5ML SYRP 5ml every 4 to 6 hours as needed for cough GUAIFENESIN-CODEINE 63989521664 No Longer Active Suzan Boo APRN Active ZITHROMAX Z-EARNEST 250 MG TABS 2 today and then 1 daily for 4 days AZITHROMYCIN 05750669481 No Longer Active Suzan Boo APRN Active PREDNISONE 10 MG TABS 2 daily for 5 days then 1 daily for 5 days PREDNISONE 44361821434 Active Suzan Boo APRN Active CLONAZEPAM 1 MG ORAL TABS 1 twice a day and an additional 1 tablet every other day as needed for pseudoseizures or anxiety CLONAZEPAM 58248730706 Active Ahmet Carbajal MD Active HYDROCODONE-ACETAMINOPHEN 5-325 MG ORAL TABS 1 tab two times a day HYDROCODONE-ACETAMINOPHEN 74955195902 No Longer Active Ahmet Carbajal MD Active LAMICTAL 100 MG ORAL TABS 1 tab 2 times qd. LAMOTRIGINE 64532612291 Active Ahmet Carbajal MD Active PREDNISONE 20 MG TABS 2 daily for 5 days then 1 daily for 5 days PREDNISONE 40561205891 No Longer Active Ahmet Carbajal MD Active FLUTICASONE PROPIONATE 50 MCG/ACT SUSP 1 to 2 sprays each nostril daily for allergies FLUTICASONE PROPIONATE 79633375808 Active Tila Valenzuela Active BENADRYL 25 MG CAP 4 po at bedtime for insomnia DIPHENHYDRAMINE HCL 51845132967 No Longer Active Ahmet Carbajal MD Active ADVAIR DISKUS 250-50 MCG/DOSE INH AEPB 1 puff twice a day for asthma FLUTICASONE-SALMETEROL 32778129883 No Longer Active Ahmet Carbajal MD Active KLONOPIN 1 MG ORAL TABS 1 tab po TID CLONAZEPAM 73697919082 No Longer Active Ahmet Carbajal MD Active ABILIFY MAINTENA 400 MG IM SUSR 400mg injection every 26 days ARIPIPRAZOLE 26628946002 No Longer Active Ahmet Carbajal MD Active TRAMADOL HCL 50 MG TABS 1/2-1 tab TID PRN TRAMADOL HCL 59766677848 No Longer Active Ahmet Carbajal MD Active BACTRIM DS 800-160 MG TABS 1 twice a day SULFAMETHOXAZOLE- TRIMETHOPRIM 56430165515 No Longer Active Ahmet Carbajal MD Active PROAIR HFA 108 (90 BASE) MCG/ACT AERS 2 puffs four times a day as needed 2015 ALBUTEROL SULFATE 03887460383 Active Ahmet Carbajal MD Active EQ NICOTINE 21 MG/24HR TRANS PT24 Apply daily to stop smoking NICOTINE 38066377812 Active Ahmet Carbajal MD Active MONISTAT 7 COMBO PACK WOODROW 100 & 2 MG-% (9GM) VAG KIT 1 applicatorful per vagina q pm x 7 MICONAZOLE NITRATE 96821044174 No Longer Active Ahmet Carbajal MD Active FLAGYL 500 MG TAB 1 tablet by mouth bid METRONIDAZOLE 90204414673 No Longer Active Ahmet Carbajal MD Active OXYCODONE HCL ER 10 MG ORAL T12A 1/2 tab by mouth every 4 hours prn OXYCODONE HCL 35020456758 No Longer Active Ahmet Carbajal MD Active METHYLPREDNISOLONE 4 MG ORAL TABS po daily METHYLPREDNISOLONE 22280537687 No Longer Active Ahmet Carbajal MD Active LEVOFLOXACIN 500 MG ORAL TABS po daily LEVOFLOXACIN 11768281182 No Longer Active Ahmet Carbajal MD Active VIIBRYD 10 MG ORAL TABS Take 1 tablet once a day VILAZODONE HCL 19805328842 No Longer Active Ahmet Carbajal MD Active TOPAMAX 50 MG ORAL TABS 1 tab twice daily TOPIRAMATE 19902105960 No Longer Active Ahmet Carbajal MD Active DICLOFENAC SODIUM 50 MG TBEC 1 tablet by mouth four times daily PRN Pain 2015 DICLOFENAC SODIUM 04447426492 No Longer Active Ahmet Carbajal MD Active ADZENYS XR-ODT 6.3 MG ORAL TBED 1 tab po daily for ADHD AMPHETAMINE 68630774308 No Longer Active Ahmet Carbajal MD Active CHANTIX 1 MG TABS 1 twice a day to help quit smoking VARENICLINE TARTRATE 31701646091 No Longer Active Dipika Burgos MD Active CHANTIX STARTING MONTH EARNEST 0.5 MG X 11 & 1 MG X 42 TABS take as directed 2015 VARENICLINE TARTRATE 44044849335 No Longer Active Dipika Burgos MD Active TESSALON PERLES 100 MG CAP 1 to 2 tablets by mouth 3 times daily as needed for cough BENZONATATE 40407134659 No Longer Active Luigi Martínez APRN Active IMITREX 50 MG ORAL TABS 0.5 po x 1 PRN Headache. May repeat dose x 1 in 2 hours if needed SUMATRIPTAN SUCCINATE 52651255276 Active Ahmet Carbajal MD Active HYDROCODONE-ACETAMINOPHEN 5-325 MG TABS 1 to 2 four times a day as needed for pain use until can be seen by specialist HYDROCODONE- ACETAMINOPHEN 72276700231 No Longer Active Vishal Hui MD Active PROAIR HFA 108 (90 BASE) MCG/ACT AERS 2 puffs four times a day as needed 2015 ALBUTEROL SULFATE 95049252376 No Longer Active Vishal Hui MD Active PREDNISONE 20 MG TABS 2 daily for 5 days then 1 daily for 5 days PREDNISONE 80901461837 No Longer Active Vishal Hui MD Active ZITHROMAX Z-EARNEST 250 MG TABS 2 today and then 1 daily for 4 days AZITHROMYCIN 60972933161 No Longer Active Vishal Hui MD Active DICLOFENAC POTASSIUM TABS Take 1 tablet twice a day (pt. is not sure of the dose.) DICLOFENAC POTASSIUM TABS 52233842613 No Longer Active Vishal Hui MD Active VERAPAMIL HCL ER 120 MG ORAL CR-TABS Take 1 tablet by mouth twice a day. VERAPAMIL HCL 34638282030 Active Vishal Hui MD Active FLAGYL 500 MG TAB 1 tablet by mouth bid METRONIDAZOLE 92507695464 No Longer Active Vishal Hui MD Active VALIUM 5 MG TAB Take 1-2 tablets daily DIAZEPAM 39261659813 No Longer Active Fabiola Alex SPECIAL EDUCATION INSTRUCTOR Active METOPROLOL TARTRATE 25 MG ORAL TABS 1/2 tablet twice daily for heart rate and blood pressure METOPROLOL TARTRATE 75535276635 No Longer Active Fabiola Johnson APRN Active MIRALAX ORAL POWD 17GMS DAILY IN WATER POLYETHYLENE GLYCOL 3350 19399140500 Active TAMARA Casey Active MIRALAX PACK 1 po qd PRN Constipation POLYETHYLENE GLYCOL 3350 33326566209 No Longer Active Ahmet Carbajal MD Active MINIPRESS 2 MG CAPS 4 cap po at night PRAZOSIN HCL 46654666977 No Longer Active Ahmet Carbajal MD Active PIROXICAM 20 MG CAPS 1 cap po qd PRN Pain PIROXICAM 46636912954 No Longer Active Ahmet Carbajal MD Active TRAMADOL HCL 50 MG TABS 1-2 po TID PRN Pain TRAMADOL HCL 17006131333 No Longer Active Ahmet Carbajal MD Active METOPROLOL TARTRATE 50 MG TAB 1 po bid METOPROLOL TARTRATE 61542513826 No Longer Active Ahmet Carbajal MD Active ABILIFY 15 MG ORAL TABS 1 tab daily ARIPIPRAZOLE 11308822081 No Longer Active Ahmet Carbajal MD Active PROZAC 20 MG ORAL CAPS 1 tab daily FLUOXETINE HCL 84607979275 No Longer Active Ahmet Carbajal MD Active AMBIEN 5 MG ORAL TABS 1 tab at bedtime ZOLPIDEM TARTRATE 40752625508 No Longer Active Ahmet Carbajal MD Active PREDNISONE 20 MG TAB 2 tabs daily for 4 days, 1 tab daily for 4 days, 1/2 tab daily for 4 days PREDNISONE 60324770584 No Longer Active Ahmet Carbajal MD Active KEFLEX 500 MG CAP 1 po TID x 10 days CEPHALEXIN 38943919275 No Longer Active Vishal Hui MD Active SAPHRIS 5 MG SUBL 1 po bid ASENAPINE MALEATE 21714033481 No Longer Active Pacollina Mauricio SPECIAL EDUCATION INSTRUCTOR Active LATUDA 80 MG TABS Take one by mouth daily LURASIDONE HCL 41155916258 No Longer Active Jillina Frazell SPECIAL EDUCATION INSTRUCTOR Active AMLODIPINE BESYLATE 5 MG TABS 1 tablet by mouth daily AMLODIPINE BESYLATE 25900487440 No Longer Active Jillina Mauricio SPECIAL EDUCATION INSTRUCTOR Active AMITRIPTYLINE HCL 100 MG TAB one at hs AMITRIPTYLINE HCL 20243909247 No Longer Active Vishal Hui MD Active TRAZODONE HCL 100 MG TAB take 1 at bedtime TRAZODONE HCL 52313272738 No Longer Active Vishal Hui MD Active VYVANSE 40 MG CAPS 1 daily, LISDEXAMFETAMINE DIMESYLATE 84399540055 No Longer Active Vishal Hui MD Active IBUPROFEN 600 MG TAB 1 po TID PRN IBUPROFEN 68652281358 No Longer Active Vishal Hui MD Active PROZAC 20 MG CAP Take one by mouth daily FLUOXETINE HCL 64459653942 No Longer Active Vishal Hui MD Active BACTRIM DS 800-160 MG TABS 1 pill by mouth twice daily SULFAMETHOXAZOLE-TRIMETHOPRIM 90850950954 No Longer Active Sahara Rodriguez MD PhD Active DIFLUCAN 150 MG TAB 1 tablet by mouth daily FLUCONAZOLE 70455362692 No Longer Active Vishal Hui MD Active TIZANIDINE HCL 4 MG TABS 1 po q6hr PRN Muscle Spasm/Back Pain TIZANIDINE HCL 02331929906 Active Vishal Hui MD Active CLINDAMYCIN HCL 150 MG CAPS 1 four times a day CLINDAMYCIN HCL 44841277209 No Longer Active Neeraj Collins MD Active KEFLEX 500 MG ORAL CAPS 1 cap QID by mouth CEPHALEXIN 25826629668 No Longer Active Neeraj Collins MD Active DIFLUCAN 150 MG TABS 1 pill every other day x 2 doses FLUCONAZOLE 51889599008 No Longer Active Sahara Rodriguez MD PhD Active MELATONIN 3 MG CAPS 2 po q hs MELATONIN 20380655819 No Longer Active Sahara Rodriguez MD PhD Active MULTIVITAMINS CAPS Take one by mouth daily MULTIPLE VITAMIN 32256941025 No Longer Active Sahara Rodriguez MD PhD Active BACTRIM DS 800-160 MG TAB 1 tab by mouth twice daily TRIMETHOPRIM-SULFAMETHOXAZOLE 04238718957 No Longer Active Sahara Rodriguez MD PhD Active [facility] PROBIOTIC ORAL CHEW 2 daily po PROBIOTIC PRODUCT 97124543527 No Longer Active Sahara Rodriguez MD PhD Active BACTRIM DS 800-160 MG TABS 1 po BID x 7 days SULFAMETHOXAZOLE-TRIMETHOPRIM 77272375365 No Longer Active Vishal Hui MD Active CHANTIX STARTING MONTH EARNEST 0.5 MG X 11 & 1 MG X 42 TABS 0.5mg daily for 3 days , then 0.5mg BID for 4 days, then 1mg BID VARENICLINE TARTRATE 19237060976 No Longer Active TAAMRA Gray Active VERAPAMIL HCL CR 120 MG TAB CR 1 po bid VERAPAMIL HCL 88383859954 No Longer Active Vishal Hui MD Active METOPROLOL SUCCINATE 50 MG TB24 1 tablet by mouth daily METOPROLOL SUCCINATE 65169247507 No Longer Active Vishal Hui MD Active SAPHRIS 10 MG SUBL 1 tab po bid ASENAPINE MALEATE 60873469550 No Longer Active Vishal Hui MD Active LISINOPRIL 20 MG TABS 1 tab po qd LISINOPRIL 40721463460 No Longer Active Vishal Hui MD Active LATUDA 20 MG TABS Take one by mouth daily LURASIDONE HCL 16115872107 No Longer Active Vishal Hui MD Active TRAZODONE HCL 50 MG TABS 1/2 tab po qd prn for anxiety TRAZODONE HCL 28968995964 No Longer Active Vishal Hui MD Active OMEPRAZOLE 20 MG TBEC 1 po q a.m. 30min prior to first food intake OMEPRAZOLE 02695872436 Active TAMARA Casey Active RANITIDINE HCL 150 MG CAPS 1 twice a day RANITIDINE HCL 58104519109 Active Luigi Martínez APRN Active LINZESS 290 MCG CAPS Take one by mouth daily LINACLOTIDE 41650691241 No Longer Active Vishal Hui MD Active SAPHRIS 5 MG SUBL 1 tab po qd ASENAPINE MALEATE 18310960280 No Longer Active Vishal Hui MD Active ZALEPLON 10 MG CAPS 1 cap po every other night ZALEPLON 83340414944 No Longer Active Vishal Hui MD Active LYRICA 50 MG CAPS 1 tab po TID PREGABALIN 33569614571 No Longer Active Vishal Hui MD Active LORATADINE 10 MG TABS 1 tab po qd LORATADINE 02149303277 No Longer Active Vishal Hui MD Active VERAPAMIL HCL ER 180 MG CR-TABS 1 tab po bid VERAPAMIL HCL 78090410290 No Longer Active Vishal Hui MD Active MIRALAX POWD 1 capfull once daily POLYETHYLENE GLYCOL 3350 35889374423 No Longer Active Vishal Hui MD Active PREDNISONE 20 MG TABS 1 tab po qd PREDNISONE 37643428792 No Longer Active Renzo Thornton DO Active LEVOFLOXACIN 500 MG TABS 1 tab po qd LEVOFLOXACIN 80603322702 No Longer Active Renzo Thornton DO Active BUSPIRONE HCL 15 MG TABS 1 tab po TID BUSPIRONE HCL 28287751271 No Longer Active Renzo Thornton DO Active BENZTROPINE MESYLATE 1 MG TABS 1 tab po qd BENZTROPINE MESYLATE 59911111019 No Longer Active Renzo Thornton DO Active ATENOLOL 25 MG TABS 1 tab po qd ATENOLOL 52930076619 No Longer Active Renzo Thornton DO Active ESCITALOPRAM OXALATE 20 MG TABS 1 tab po qd ESCITALOPRAM OXALATE 43074589683 No Longer Active Renzo Thornton DO Active ADVAIR DISKUS 250-50 MCG/DOSE AEPB 1 puff BID FLUTICASONE-SALMETEROL 79350710162 No Longer Active Renzo Thornton DO Active PREDNISONE 20 MG TAB 2 tabs daily for 3 days, 1 tab daily for 3 days, 1/2 tab daily for 2 days PREDNISONE 26408333863 No Longer Active Vishal Hui MD Active CEFDINIR 300 MG CAPS by mouth twice a day CEFDINIR 07455553457 No Longer Active Vishal Hui MD Active LANSOPRAZOLE 30 MG CPDR 1 cap po qd LANSOPRAZOLE 78438472857 No Longer Active Vishal Hui MD Active BACLOFEN 20 MG TABS 1 tab po tid BACLOFEN 39411992604 No Longer Active Vishal Hui MD Active ADVAIR DISKUS 250-50 MCG/DOSE AEPB 1 puff BID ADVAIR DISKUS 250-50 MCG/DOSE AEPB FLUTICASONE-SALMETEROL Inactive ESCITALOPRAM OXALATE 20 MG TABS 1 tab po qd ESCITALOPRAM OXALATE 20 MG TABS 592107 ESCITALOPRAM OXALATE Inactive ATENOLOL 25 MG TABS 1 tab po qd ATENOLOL 25 MG TABS 901042 ATENOLOL Inactive BENZTROPINE MESYLATE 1 MG TABS 1 tab po qd BENZTROPINE MESYLATE 1 MG TABS 509575 BENZTROPINE MESYLATE Inactive BUSPIRONE HCL 15 MG TABS 1 tab po TID BUSPIRONE HCL 15 MG TABS 686245 BUSPIRONE HCL Inactive LEVOFLOXACIN 500 MG TABS 1 tab po qd LEVOFLOXACIN 500 MG TABS 344884 LEVOFLOXACIN Inactive PREDNISONE 20 MG TABS 1 tab po qd PREDNISONE 20 MG TABS 352021 PREDNISONE Inactive MIRALAX POWD 1 capfull once daily MIRALAX POWD 142125 POLYETHYLENE GLYCOL 3350 Inactive VERAPAMIL HCL ER 180 MG CR-TABS 1 tab po bid VERAPAMIL HCL ER 180 MG CR-TABS VERAPAMIL HCL Inactive LORATADINE 10 MG TABS 1 tab po qd LORATADINE 10 MG TABS 994299 LORATADINE Inactive LYRICA 50 MG CAPS 1 tab po TID LYRICA 50 MG CAPS PREGABALIN Inactive ZALEPLON 10 MG CAPS 1 cap po every other night ZALEPLON 10 MG CAPS 127116 ZALEPLON Inactive SAPHRIS 5 MG SUBL 1 tab po qd SAPHRIS 5 MG SUBL ASENAPINE MALEATE Inactive TRAZODONE HCL 50 MG TABS 1/2 tab po qd prn for anxiety TRAZODONE HCL 50 MG TABS 300605 TRAZODONE HCL Inactive LATUDA 20 MG TABS Take one by mouth daily LATUDA 20 MG TABS LURASIDONE HCL Inactive LISINOPRIL 20 MG TABS 1 tab po qd LISINOPRIL 20 MG TABS 009642 LISINOPRIL Inactive SAPHRIS 10 MG SUBL 1 [...] twice daily BACTRIM DS 800-160 MG TAB 017917 TRIMETHOPRIM-SULFAMETHOXAZOLE Inactive MULTIVITAMINS CAPS Take one by mouth daily MULTIVITAMINS CAPS MULTIPLE VITAMIN Inactive MELATONIN 3 MG CAPS 2 po q hs MELATONIN 3 MG CAPS 012735 MELATONIN Inactive KEFLEX 500 MG ORAL CAPS 1 cap QID by mouth KEFLEX 500 MG ORAL CAPS 016879 CEPHALEXIN Inactive CLINDAMYCIN HCL 150 MG CAPS 1 four times a day CLINDAMYCIN HCL 150 MG CAPS 180340 CLINDAMYCIN HCL Inactive DIFLUCAN 150 MG TAB 1 tablet by mouth daily DIFLUCAN 150 MG TAB 762841 FLUCONAZOLE Inactive PROZAC 20 MG CAP Take one by mouth daily PROZAC 20 MG CAP 488360 FLUOXETINE HCL Inactive IBUPROFEN 600 MG TAB 1 po TID PRN IBUPROFEN 600 MG TAB 218932 IBUPROFEN Inactive VYVANSE 40 MG CAPS 1 daily, VYVANSE 40 MG CAPS LISDEXAMFETAMINE DIMESYLATE Inactive TRAZODONE HCL 100 MG TAB take 1 at bedtime TRAZODONE HCL 100 MG TAB 389489 TRAZODONE HCL Inactive AMITRIPTYLINE HCL 100 MG TAB one at hs AMITRIPTYLINE HCL 100 MG TAB 109756 AMITRIPTYLINE HCL Inactive AMLODIPINE BESYLATE 5 MG TABS 1 tablet by mouth daily AMLODIPINE BESYLATE 5 MG TABS 696370 AMLODIPINE BESYLATE Inactive LATUDA 80 MG TABS Take one by mouth daily LATUDA 80 MG TABS LURASIDONE HCL Inactive SAPHRIS 5 MG SUBL 1 po bid SAPHRIS 5 MG SUBL ASENAPINE MALEATE Inactive PREDNISONE 20 MG TAB 2 tabs daily for 4 days, 1 tab daily for 4 days, 1/2 tab daily for 4 days PREDNISONE 20 MG TAB 369194 PREDNISONE Inactive AMBIEN 5 MG ORAL TABS 1 tab at bedtime AMBIEN 5 MG ORAL TABS 527534 ZOLPIDEM TARTRATE Inactive PROZAC 20 MG ORAL CAPS 1 tab daily PROZAC 20 MG ORAL CAPS 625233 FLUOXETINE HCL Inactive ABILIFY 15 MG ORAL TABS 1 tab daily ABILIFY 15 MG ORAL TABS 370036 ARIPIPRAZOLE Inactive METOPROLOL TARTRATE 50 MG TAB 1 po bid METOPROLOL TARTRATE 50 MG TAB 056920 METOPROLOL TARTRATE Inactive TRAMADOL HCL 50 MG TABS 1-2 po TID PRN Pain TRAMADOL HCL 50 MG TABS 839449 TRAMADOL HCL Inactive PIROXICAM 20 MG CAPS 1 cap po qd PRN Pain PIROXICAM 20 MG CAPS 709683 PIROXICAM Inactive MINIPRESS 2 MG CAPS 4 cap po at night MINIPRESS 2 MG CAPS 173242 PRAZOSIN HCL Inactive MIRALAX PACK 1 po qd PRN Constipation MIRALAX PACK 824261 POLYETHYLENE GLYCOL 3350 Inactive METOPROLOL TARTRATE 25 MG ORAL TABS 1/2 tablet twice daily for heart rate and blood pressure METOPROLOL TARTRATE 25 MG ORAL TABS 375909 METOPROLOL TARTRATE Inactive VALIUM 5 MG TAB Take 1-2 tablets daily VALIUM 5 MG TAB 967343 DIAZEPAM Inactive FLAGYL 500 MG TAB 1 tablet by mouth bid FLAGYL 500 MG TAB 192144 METRONIDAZOLE Inactive DICLOFENAC POTASSIUM TABS Take 1 tablet twice a day (pt. is not sure of the dose.) DICLOFENAC POTASSIUM TABS DICLOFENAC POTASSIUM TABS Inactive ZITHROMAX Z-EARNEST 250 MG TABS 2 today and then 1 daily for 4 days ZITHROMAX Z-EARNEST 250 MG TABS 5062828 AZITHROMYCIN Inactive PREDNISONE 20 MG TABS 2 daily for 5 days then 1 daily for 5 days PREDNISONE 20 MG TABS 173365 PREDNISONE Inactive PROAIR HFA 108 (90 BASE) MCG/ACT AERS 2 puffs four times a day as needed 2015 PROAIR HFA 108 (90 BASE) MCG/ACT AERS ALBUTEROL SULFATE Inactive HYDROCODONE-ACETAMINOPHEN 5-325 MG TABS 1 to 2 four times a day as needed for pain use until can be seen by specialist HYDROCODONE- ACETAMINOPHEN 5-325 MG TABS 596094 HYDROCODONE-ACETAMINOPHEN Inactive TESSALON PERLES 100 MG CAP 1 to 2 tablets by mouth 3 times daily as needed for cough TESSALON PERLES 100 MG CAP 940417 BENZONATATE Inactive CHANTIX STARTING MONTH EARNEST 0.5 [...] Pain 2015 DICLOFENAC SODIUM 50 MG TBEC 385496 DICLOFENAC SODIUM Inactive TOPAMAX 50 MG ORAL TABS 1 tab twice daily TOPAMAX 50 MG ORAL TABS 114751 TOPIRAMATE Inactive VIIBRYD 10 MG ORAL TABS Take 1 tablet once a day VIIBRYD 10 MG ORAL TABS VILAZODONE HCL Inactive LEVOFLOXACIN 500 MG ORAL TABS po daily LEVOFLOXACIN 500 MG ORAL TABS 471890 LEVOFLOXACIN Inactive METHYLPREDNISOLONE 4 MG ORAL TABS po daily METHYLPREDNISOLONE 4 MG ORAL TABS 057709 METHYLPREDNISOLONE Inactive OXYCODONE HCL ER 10 MG ORAL T12A 1/2 tab by mouth every 4 hours prn OXYCODONE HCL ER 10 MG ORAL T12A OXYCODONE HCL Inactive FLAGYL 500 MG TAB 1 tablet by mouth bid FLAGYL 500 MG TAB 061944 METRONIDAZOLE Inactive MONISTAT 7 COMBO PACK WOODROW 100 & 2 MG-% (9GM) VAG KIT 1 applicatorful per vagina q pm x 7 MONISTAT 7 COMBO PACK WOODROW 100 & 2 MG-% (9GM) VAG KIT MICONAZOLE NITRATE Inactive BACTRIM DS 800-160 MG TABS 1 twice a day BACTRIM DS 800-160 MG TABS 524193 SULFAMETHOXAZOLE-TRIMETHOPRIM Inactive TRAMADOL HCL 50 MG TABS 1/2-1 tab TID PRN TRAMADOL HCL 50 MG TABS 730061 TRAMADOL HCL Inactive ABILIFY MAINTENA 400 MG IM SUSR 400mg injection every 26 days ABILIFY MAINTENA 400 MG IM SUSR ARIPIPRAZOLE Inactive KLONOPIN 1 MG ORAL TABS 1 tab po TID KLONOPIN 1 MG ORAL TABS 321236 CLONAZEPAM Inactive ADVAIR DISKUS 250-50 MCG/DOSE INH AEPB 1 puff twice a day for asthma ADVAIR DISKUS 250-50 MCG/DOSE INH AEPB FLUTICASONE- SALMETEROL Inactive BENADRYL 25 MG CAP 4 po at bedtime for insomnia BENADRYL 25 MG CAP DIPHENHYDRAMINE HCL Inactive PREDNISONE 20 MG TABS 2 daily for 5 days then 1 daily for 5 days PREDNISONE 20 MG TABS 808396 PREDNISONE Inactive HYDROCODONE-ACETAMINOPHEN 5-325 MG ORAL TABS 1 tab two times a day HYDROCODONE-ACETAMINOPHEN 5-325 MG ORAL TABS 837727 HYDROCODONE-ACETAMINOPHEN Inactive ZITHROMAX Z-EARNEST 250 MG TABS 2 today and then 1 daily for 4 days ZITHROMAX Z-EARNEST 250 MG TABS 1177453 AZITHROMYCIN Inactive GUAIFENESIN-CODEINE 100-10 MG/5ML SYRP 5ml every 4 to 6 hours as needed for cough GUAIFENESIN-CODEINE 100-10 MG/5ML SYRP 730865 GUAIFENESIN-CODEINE Inactive HALOPERIDOL 10 MG ORAL TABS 1 tab q.d HALOPERIDOL 10 MG ORAL TABS 046249 HALOPERIDOL Inactive ASPIRIN 325 MG ORAL TABS 1 tab q.d ASPIRIN 325 MG ORAL TABS 890568 ASPIRIN Inactive FLUTICASONE PROPIONATE 50 MCG/ACT SUSP 2 sprays each nostril daily before bed. FLUTICASONE PROPIONATE 50 MCG/ACT SUSP 6349381 FLUTICASONE PROPIONATE Inactive ZOFRAN 4 MG TABS 1 po q6hr PRN Nausea ZOFRAN 4 MG TABS 338513 ONDANSETRON HCL Inactive CEFDINIR 300 MG CAPS by mouth twice a day CEFDINIR 300 MG CAPS 845165 CEFDINIR Inactive PREDNISONE 20 MG TAB 2 tabs daily for 3 days, 1 tab daily for 3 days, 1/2 tab daily for 2 days PREDNISONE 20 MG TAB 382992 PREDNISONE Inactive BACTRIM DS 800-160 MG TABS 1 po BID x 7 days BACTRIM DS 800-160 MG TABS 19820521 SULFAMETHOXAZOLE-TRIMETHOPRIM Inactive DIFLUCAN 150 MG TABS 1 pill every other day x 2 doses DIFLUCAN 150 MG TABS 153093 FLUCONAZOLE Inactive BACTRIM DS 800-160 MG TABS 1 pill by mouth twice daily BACTRIM DS 800-160 MG TABS 19820521 SULFAMETHOXAZOLE-TRIMETHOPRIM Inactive KEFLEX 500 MG CAP 1 po TID x 10 days KEFLEX 500 MG CAP 806982 CEPHALEXIN Inactive Advance Directives Directive Description Start [...] % 11.0-15.0 platelet count 443 THOUSAND/UL 10*3/mm3 161-218 4356/03/01 mean platelet volume 8.2 fL 7.5-12.5 Lab Report: CBC, Thyroid Stimulating Hormone (L) - Chemistry TSH 0.62 m[iU]/mL 0.36-3.74 Lab Report: CBC, Thyroid Stimulating Hormone (L) - Hematology mean corpuscular hemoglobin, RBC 32.1 pg 27.0-31.2 leukocyte count, blood 11.1 10^3/MM^3 10*3/mm3 4.6-10.2 erythrocyte (RBC) count 4.78 10^6/MM^3 10*6/mm3 4.04-5.48 hemoglobin, blood 15.3 g/dL 12.0-16.0 mean corpuscular volume, RBC 94 fL 80-97 mean corpuscular hemoglobin concentration, RBC 34.1 G/DL % 31.8- 35.4 red blood cell distribution width 11.8 % 11.6-14.8 platelet count 369 10^3/MM^3 10*3/mm3 149-012 7498/12/21 hematocrit, blood 45.0 % 36.0-46.0 Lab Report: Chlamydia/GC APTIMA/[id number] - Lab chlamydia DNA probe NOT DETECTED NOT DETECTED Lab Report: Chlamydia/GC APTIMA/[id number] - Microbiology Neisseria gonorrhoeae DNA probe NOT DETECTED NOT DETECTED Lab Report: Chlamydia/GC APTIMA/[id number], Urinalysis, Complete, with Reflex ... - Lab chlamydia DNA probe NOT DETECTED NOT DETECTED Lab Report: Chlamydia/GC APTIMA/[id number], Urinalysis, Complete, with Reflex ... - Microbiology Neisseria gonorrhoeae DNA probe NOT DETECTED NOT DETECTED Lab Report: Chlamydia/GC APTIMA/[id number], Urinalysis, Complete, with Reflex ... - Urinalysis microalbumin/total urine volume 2 mg/L Units converted. See lab report for original value. microalbumin/creatinine ratio, urine 9 MCG/MG CREAT mg/L <30 Lab Report: Comp. Metabolic Panel - Chemistry blood glucose 95 mg/dL 65-110 chloride, serum 105 mmol/L 98-107 potassium, serum 4.0 mmol/L 3.5-5.2 carbon dioxide, venous blood 27.6 mmol/L 21.0-32.0 sodium, serum 142 mmol/L 177-013 5526/08/08 sodium, serum 140 mmol/L 404-143 0739/08/08 creatinine, serum 0.88 mg/dL 0.55-1.30 alanine aminotransferase [...] mg/dL Encounters Code Encounter Date Provider Facility CPT-81919 Level 3 Est. Patient 15:28:23 ICT SECURITY SPECIALIST Suzan Boo [facility] CPT-44135 Level 4 Est. Patient 10:20:54 ICT SECURITY SPECIALIST Suzan Boo [facility] CPT-41590 Level 3 Est. Patient 11:47:37 ICT SECURITY SPECIALIST Ahmet Carbajal MD [facility] CPT-18320 Level 3 Est. Patient 10:40:11 ICT SECURITY SPECIALIST Ahmet Carbajal MD [facility] CPT-10791 Level 3 Est. Patient 15:07:06 ICT SECURITY SPECIALIST Neeraj Collins MD [facility] CPT-39079 Level 4 Est. Patient 14:45:00 ICT SECURITY SPECIALIST Ahmet Carbajal MD [facility] CPT-59539 Level 3 Est. Patient 13:59:59 CDT Luigi Martínez [facility] CPT-16128 Level 3 Est. Patient 18:18:53 CDT Neeraj Collins MD [facility] CPT-37474 Level 3 Est. Patient 15:50:44 CDT Vishal Hui MD [facility] CPT-06171 Level 3 Est. Patient 11:36:17 CDT Ahmet Carbajal MD [facility] CPT-14041 Level 3 Est. Patient 13:29:16 CDT Vishal Hui MD [facility] CPT-64421 Level 3 Est. Patient 14:27:52 CDT Neeraj Collins MD [facility] CPT-88921 Level 3 Est. Patient 08:56:03 CDT Luigi Martínez [facility] CPT-25955 Level 4 Est. Patient 12:11:48 CDT Fabiola Johnson APRN [facility] CPT-72770 Level 3 New Patient 16:53:37 CDT Albert Caldera MD [facility] CPT-69807 Level 3 Est. Patient 11:25:49 CDT Renzo Thornton DO [facility] CPT-83804 Level 3 Est. Patient 15:22:01 CDT Ahmet Carbajal MD [facility] CPT-60418 Level 4 Est. Patient 09:00:51 ICT SECURITY SPECIALIST Vishal Hui MD [facility] CPT-28285 Level 3 Est. Patient 11:37:33 ICT SECURITY SPECIALIST Vishal Hui MD [facility] CPT-27510 Level 3 Est. Patient 08:41:09 ICT SECURITY SPECIALIST Vishal Hui MD [facility] CPT-38716 Level 4 Est. Patient 10:19:35 ICT SECURITY SPECIALIST Vishal Hui MD [facility] CPT-15120 Level 3 Est. Patient 13:35:45 CDT Vishal Hui MD [facility] CPT-17442 Level 4 Est. Patient 10:08:37 CDT Vishal Hui MD [facility] CPT-98364 Level 3 Est. Patient 11:22:10 CDT Vishal Hui MD [facility] CPT-15220 Level 3 Est. Patient 11:03:32 CDT Sahara Rodriguez MD PhD [facility] CPT-44501 Level 3 Est. Patient 09:41:35 CDT Vishal Hui MD [facility] CPT-94839 Level 3 Est. Patient 12:00:41 CDT Neeraj Collins MD [facility] CPT-43145 Level 3 Est. Patient 09:16:24 CDT Vishal Hui MD [facility] CPT-39290 Level 4 Est. Patient 13:59:09 CDT Neeraj Collins MD [facility] CPT-74819 Level 3 Est. Patient 15:19:43 CDT Renzo Thornton [facility] CPT-59584 Level 3 Est. Patient 18:10:26 CDT Sahara Rodriguez MD [facility] CPT-34130 Level 3 Est. Patient 14:49:50 CDT Vishal Hui MD [facility] CPT-32034 Level 4 Est. Patient 18:41:46 CDT Neeraj Collins MD [facility] CPT-54672 Level 4 Est. Patient 09:18:38 ICT SECURITY SPECIALIST Vishal Hui MD [facility] CPT-36835 Level 3 Est. Patient 14:43:55 ICT SECURITY SPECIALIST Vishal Hui MD [facility] CPT-07734 Level 3 Est. Patient 15:26:33 ICT SECURITY SPECIALIST Sahara Rodriguez MD PhD [facility] CPT-76609 Level 3 Est. Patient 10:32:14 ICT SECURITY SPECIALIST Vishal Hui MD [facility] CPT-67543 Level 3 Est. Patient 15:12:52 ICT SECURITY SPECIALIST Vishal Hui MD [facility] CPT-50447 Level 4 Est. Patient 09:19:27 CDT Vishal Hui MD [facility] CPT-32563 Level 3 Est. Patient 15:53:00 CDT Renzo Thornton [facility] CPT-42420 Level 3 Est. Patient 15:50:30 CDT Renzo Thornton [facility] CPT-99513 Level 3 Est. Patient 16:55:24 CDT Vishal Hui MD [facility] Procedures Code Procedure Name Date Entry Date Standard Description CPT-G0439 [facility] Annual Wellness Exam 09:30:58 ICT SECURITY SPECIALIST CPT-45320 TSH - LAB USE ONLY 08:50:26 ICT SECURITY SPECIALIST CPT-04928 CBC - LAB USE ONLY 08:50:26 ICT SECURITY SPECIALIST CPT-99436 Venipuncture Draw Fee 08:50:26 ICT SECURITY SPECIALIST CPT-10127 Abx/Therapy Injection 17:34:30 ICT SECURITY SPECIALIST CPT-77752 Nexplanon Removal with Reinsertion 14:09:32 CDT CPT-J7307 Nexplanon (Implant) 14:09:32 CDT CPT-OV Office Visit 14:09:32 CDT CPT-69426 UA w micro - LAB USE ONLY 16:21:13 CDT CPT-98899 Wet Mount - LAB USE ONLY 16:21:13 CDT CPT-21503 First Vx - Ix admin for Medicare patients 14:37:47 CDT CPT-55348 Fluzone Preservative Free Intramuscular Suspension 14:37 :47 CDT CPT-37260 Abx/Therapy Injection 13:54:22 CDT CPT-91597 Abx/Therapy Injection 08:47:09 CDT CPT-32176 Abx/Therapy Injection 13:29:56 CDT CPT-51213 Abx/Therapy Injection 08:36:16 CDT CPT-77187 Wet Mount - LAB USE ONLY 17:44:58 CDT CPT-37424 UA w micro - LAB USE ONLY 17:44:58 CDT CPT-82328 CMP - LAB USE ONLY 17:44:58 CDT CPT-55475 Venipuncture Draw Fee 17:44:58 CDT CPT-78802 Cervical Min 4V - XRAY USE ONLY 09:01:40 CDT CPT-29112 Chest 2V Frontal and Lat - XRAY USE ONLY 11:06:31 CDT CPT-32885 EKG Trac and Interp - XRAY USE ONLY 11:31:43 CDT 08/26 CPT-J3420 Vitamin B12 1000mcg (Cyanocobalamin) 08:10:26 ICT SECURITY SPECIALIST 04/12 CPT-04032 Abx/Therapy Injection 08:10:26 ICT SECURITY SPECIALIST CPT-G0438 Initial Annual Wellness Exam 19:01:01 ICT SECURITY SPECIALIST CPT-J3420 Vitamin B12 1000mcg (Cyanocobalamin) 16:57:46 CDT 08/14 CPT-83305 Recombivax HB Injection Suspension 5 MCG/0.5ML 08:37:50 ICT SECURITY SPECIALIST CPT-00766 Immunization Single Admin 08:37:50 ICT SECURITY SPECIALIST CPT-J3420 Vitamin B12 1000mcg (Cyanocobalamin) 08:32:16 ICT SECURITY SPECIALIST 03/11 CPT-60672 Abx/Therapy Injection 08:32:16 ICT SECURITY SPECIALIST CPT-55008 Chest 2V Frontal and Lat 11:46:38 ICT SECURITY SPECIALIST CPT-24110 Venipuncture Draw Fee 09:12:45 ICT SECURITY SPECIALIST CPT-J3420 Vitamin B12 1000mcg (Cyanocobalamin) 08:50:15 ICT SECURITY SPECIALIST 02/08 CPT-21199 Abx/Therapy Injection 08:50:15 ICT SECURITY SPECIALIST CPT-Cryo Cryotherapy 10:19:35 ICT SECURITY SPECIALIST CPT-000 Give Appropriate Flu Vaccine 09:22:16 CDT CPT-J3420 Vitamin B12 1000mcg (Cyanocobalamin) 19:08:57 CDT 01/11 CPT-94732 Abx/Therapy Injection 19:08:57 CDT CPT-J3420 Vitamin B12 1000mcg (Cyanocobalamin) 08:19:08 CDT 12/11 CPT-54191 Abx/Therapy Injection 08:19:08 CDT CPT-J3420 Vitamin B12 1000mcg (Cyanocobalamin) 14:48:00 CDT 11/09 CPT-44651 Abx/Therapy Injection 14:47:59 CDT CPT-J3420 Vitamin B12 1000mcg (Cyanocobalamin) 08:34:04 CDT 10/09 CPT-94310 Abx/Therapy Injection 08:34:04 CDT CPT-J3420 Vitamin B12 1000mcg (Cyanocobalamin) 09:18:52 CDT 09/11 CPT-60667 Abx/Therapy Injection 09:18:52 CDT CPT-J3420 Vitamin B12 1000mcg (Cyanocobalamin) 08:35:44 CDT 09/04 CPT-52162 Abx/Therapy Injection 08:35:44 CDT CPT-02698 Immunization Single Admin 11:07:16 CDT CPT-16816 Hepatitis B adult IM 11:07:16 CDT CPT-J3420 Vitamin B12 1000mcg (Cyanocobalamin) 11:00:49 CDT 08/28 CPT-J1040 Depo Medrol 80 mg (Methyl Prednisolone Acetate) 11:00: 49 CDT CPT-75125 Abx/Therapy Injection 11:00:49 CDT CPT-J1040 Depo Medrol 80 mg (Methyl Prednisolone Acetate) 09:16: 23 CDT CPT-J3420 Vitamin B12 1000mcg (Cyanocobalamin) 08:27:05 CDT 08/20 CPT-37166 Abx/Therapy Injection 08:27:05 CDT CPT-50491 Recombivax HB Injection Suspension 5 MCG/0.5ML 10:00:41 CDT CPT-19557 Administration single or combination vaccine inc oral 10 :00:41 CDT CPT-92312 Sono transvag pelvis non OB uterus ovaries cervix 16:36: 57 CDT CPT-35260 LS spine comp w obliq 09:50:55 ICT SECURITY SPECIALIST CPT-39425 Abd compl w upright 09:50:55 ICT SECURITY SPECIALIST CPT-J1100 Decadron 4mg (Dexamethasone) 15:51:24 ICT SECURITY SPECIALIST CPT-J1030 Depo Medrol 40 mg (Methyl Prednisolone Acetate) 15:51: 24 ICT SECURITY SPECIALIST CPT-88975 Abx/Therapy Injection 15:51:24 ICT SECURITY SPECIALIST CPT-J1100 Decadron 4mg (Dexamethasone) 15:26:33 ICT SECURITY SPECIALIST CPT-J1030 Depo Medrol 40 mg (Methyl Prednisolone Acetate) 15:26: 33 ICT SECURITY SPECIALIST CPT-50263 Sono retroperitoneal complete kidneys and bladder 17:15: 30 CDT CPT-90767 Abd compl w upright 16:09:25 CDT CPT-J1100 Decadron 8mg (Dexamethasone) 17:07:57 CDT CPT-22391 Abx/Therapy Injection 17:07:57 CDT CPT-J1100 Decadron 8mg (Dexamethasone) 16:55:24 CDT CPT-55861 Chest 2V Frontal and Lat 16:32:44 CDT
--- OUTSIDE RECORDS SUMMARY | 2016-11-04 16:03 | XMS REPORT ---
Author Author [facility] Medical Staff Organization [facility] Address [address] [place], [place] [id number] Phone [phone] Care Team Providers Care Neurological Surgery Teacher Name Role Phone JORGE OLGA NORIEGA PP [phone] OLGA PATEL APRN PP [phone] Summary purpose TRANSITION OF CARE AUTO GENERATION [...] Image DATE OF EXAM: May 12 2015 [id number] HEAD WO CONTRAST : RADIOLOGY REPORT DATE [...] On: DATE OF EXAM: May 12 2015 [id number] HEAD WO CONTRAST : RADIOLOGY REPORT DATE [...] on 2015-05-13 at 12:04:31. Previous status was IN. MIGRAINE [id number]:00 Result Normal Range Units MPV 9.9 7.3-10.4 [...] Dental Hygiene good : Abdomen Appearance round [id number]:25 Abdomen soft : Bowel Sounds present : NG Tube no :25 Feeding Tube none : Vick no : Cont Bladder Irr no [id number] Ostomy no :25 Stool normal :25 Urination [...] Yes :34 Name 3 Objects 3 Yes [id number] Name Object in Rm 2 Yes [id number] Recall 3 Objects 3 Yes :34 Repeats a Phrase 1 Yes :34 Follows Verbal Direc 3 Yes :34 Follows Written Dire 1 Yes :34 Write a Sentance 1 Yes :34 Draw an Object 1 Yes :34 Mini Mental Total 25 points :34 Learning Ability comprehends well :27 Neurological no :27 Psychological yes :27 Physical no :27 Hearing no :27 Bus Escort Needed no :27 Sign Language no :27 Emotional no :27 Vision yes :27 Laguage no :27 Financial no :27 Vital signs Type Value Date Respiration Rate 20breaths per minute : Pulse 74beats per minute : Oxygen Saturation 99% : BP Systolic 109mmHg :23 BP Diastolic 64mmHg :23 Temperature 97.6F :23 [...] N/A Diet Explained yes Follow up appt already scheduled Follow Up Appt D/T may 18 @ 1:30
--- OUTSIDE RECORDS SUMMARY | 2016-11-04 16:06 | XMS REPORT | Clinical Summary ---
Author Author Admin, Dereck Organization 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 May repeat dose x 1 in 2 hours if needed SUMATRIPTAN SUCCINATE 74796810586 Active Vishal Hui MD Active OXYCODONE HCL ER 10 MG ORAL T12A 1/2 tab by mouth every 4 hours prn OXYCODONE HCL 22217853662 Active Neeraj Collins MD Active TESSALON PERLES 100 MG CAP 1 to 2 tablets by mouth 3 times daily as needed for cough BENZONATATE 32321585569 Active Vishal Hui MD Active METHYLPREDNISOLONE 4 MG ORAL TABS po daily METHYLPREDNISOLONE 42580447202 Active Vishal Hui MD Active LEVOFLOXACIN 500 MG ORAL TABS po daily LEVOFLOXACIN 79465208120 Active Vishal Hui MD Active CHANTIX STARTING MONTH EARNEST 0.5 MG X 11 & 1 MG X 42 TABS take as directed 2015 VARENICLINE TARTRATE 77863188425 Active Ahmet Carbajal MD Active CHANTIX 1 MG TABS 1 twice a day to help quit smoking VARENICLINE TARTRATE 95334955573 Active Ahmet Carbajal MD Active HYDROCODONE-ACETAMINOPHEN 5-325 MG TABS 1 to 2 four times a day as needed for pain use until can be seen by specialist HYDROCODONE- ACETAMINOPHEN 81414755105 No Longer Active Vishal Hui MD Active PROAIR HFA 108 (90 BASE) MCG/ACT AERS 2 puffs four times a day as needed 2015 ALBUTEROL SULFATE 87642015084 No Longer Active Vishal Hui MD Active PREDNISONE 20 MG TABS 2 daily for 5 days then 1 daily for 5 days PREDNISONE 60097040863 No Longer Active Vishal Hui MD Active ZITHROMAX Z-EARNEST 250 MG TABS 2 today and then 1 daily for 4 days AZITHROMYCIN 73475368140 No Longer Active Vishal Hui MD Active DICLOFENAC SODIUM 50 MG TBEC 1 tablet by mouth four times daily PRN Pain 2015 DICLOFENAC SODIUM 56701956556 Active Vishal Hui MD Active DICLOFENAC POTASSIUM TABS Take 1 tablet twice a day (pt. is not sure of the dose.) DICLOFENAC POTASSIUM TABS 39689872009 No Longer Active Vishal Hui MD Active VERAPAMIL HCL ER 120 MG ORAL CR-TABS Take 1 tablet by mouth twice a day. VERAPAMIL HCL 29586340112 Active Vishal Hui MD Active FLAGYL 500 MG TAB 1 tablet by mouth bid METRONIDAZOLE 43140197549 No Longer Active Vishal Hui MD Active FLUTICASONE PROPIONATE 50 MCG/ACT SUSP 2 sprays each nostril daily before bed. FLUTICASONE PROPIONATE 07858435225 Active Fabiola Johnson APRN Active ADZENYS XR-ODT 6.3 MG ORAL TBED 1 tab po daily for ADHD AMPHETAMINE 08929405966 Active Fabiola Johnson APRN Active BENADRYL 25 MG CAP 4 po at bedtime for insomnia DIPHENHYDRAMINE HCL 71583372394 Active Fabiola Johnson APRN Active KLONOPIN 1 MG ORAL TABS 1 tab po TID CLONAZEPAM 15364575208 Active Fabiola Johnson APRN Active VALIUM 5 MG TAB Take 1-2 tablets daily DIAZEPAM 78515119667 No Longer Active Fabiola Johnson APRN Active METOPROLOL TARTRATE 25 MG ORAL TABS 1/2 tablet twice daily for heart rate and blood pressure METOPROLOL TARTRATE 43979556420 No Longer Active Fabiola Johnson APRN Active MIRALAX ORAL POWD 17GMS DAILY IN WATER POLYETHYLENE GLYCOL 3350 16537909507 Active Vishal Hui MD Active VIIBRYD 10 MG ORAL TABS Take 1 tablet once a day VILAZODONE HCL 23339230286 Active Ahmet Carbajal MD Active MIRALAX PACK 1 po qd PRN Constipation POLYETHYLENE GLYCOL 3350 42276329337 No Longer Active Ahmet Carbajal MD Active MINIPRESS 2 MG CAPS 4 cap po at night PRAZOSIN HCL 75028684199 No Longer Active Ahmet Carbajal MD Active PIROXICAM 20 MG CAPS 1 cap po qd PRN Pain PIROXICAM 18395123154 No Longer Active Ahmet Carbajal MD Active TRAMADOL HCL 50 MG TABS 1-2 po TID PRN Pain TRAMADOL HCL 28863432125 No Longer Active Ahmet Carbajal MD Active METOPROLOL TARTRATE 50 MG TAB 1 po bid METOPROLOL TARTRATE 36039660355 No Longer Active Ahmet Carbajal MD Active ABILIFY 15 MG ORAL TABS 1 tab daily ARIPIPRAZOLE 94634643522 No Longer Active Ahmet Carbajal MD Active PROZAC 20 MG ORAL CAPS 1 tab daily FLUOXETINE HCL 93710122111 No Longer Active Ahmet Carbajal MD Active AMBIEN 5 MG ORAL TABS 1 tab at bedtime ZOLPIDEM TARTRATE 92694201726 No Longer Active Ahmet Carbajal MD Active PREDNISONE 20 MG TAB 2 tabs daily for 4 days, 1 tab daily for 4 days, 1/2 tab daily for 4 days PREDNISONE 06545739798 No Longer Active Ahmet Carbajal MD Active KEFLEX 500 MG CAP 1 po TID x 10 days CEPHALEXIN 93964988299 No Longer Active Vishal Hui MD Active TOPAMAX 50 MG ORAL TABS 1 tab twice daily TOPIRAMATE 07295494648 Active Vishal Hui MD Active SAPHRIS 5 MG SUBL 1 po bid ASENAPINE MALEATE 49047000427 No Longer Active Luigi Martínez APRN Active LATUDA 80 MG TABS Take one by mouth daily LURASIDONE HCL 48865914760 No Longer Active Jillina Fralebron NORIEGA Active AMLODIPINE BESYLATE 5 MG TABS 1 tablet by mouth daily AMLODIPINE BESYLATE 56169130169 No Longer Active Pacolljanee Martínez APRN Active AMITRIPTYLINE HCL 100 MG TAB one at hs AMITRIPTYLINE HCL 28118794465 No Longer Active Vishal Hui MD Active TRAZODONE HCL 100 MG TAB take 1 at bedtime TRAZODONE HCL 38607210681 No Longer Active Vishal Hui MD Active VYVANSE 40 MG CAPS 1 daily, LISDEXAMFETAMINE DIMESYLATE 95481332235 No Longer Active Vishal Hui MD Active IBUPROFEN 600 MG TAB 1 po TID PRN IBUPROFEN 43387934848 No Longer Active Vishal Hui MD Active PROZAC 20 MG CAP Take one by mouth daily FLUOXETINE HCL 90425282484 No Longer Active Vishal Hui MD Active ZOFRAN 4 MG TABS 1 po q6hr PRN Nausea ONDANSETRON HCL Active Vishal Hui MD Active BACTRIM DS 800-160 MG TABS 1 pill by mouth twice daily SULFAMETHOXAZOLE-TRIMETHOPRIM 81503258978 No Longer Active Sahara Rodriguez MD PhD Active DIFLUCAN 150 MG TAB 1 tablet by mouth daily FLUCONAZOLE 78555100015 No Longer Active Vishal Hui MD Active TIZANIDINE HCL 4 MG TABS 1 po q6hr PRN Muscle Spasm/Back Pain TIZANIDINE HCL 21186620371 Active Vishal Hui MD Active CLINDAMYCIN HCL 150 MG CAPS 1 four times a day CLINDAMYCIN HCL 93510294619 No Longer Active Neeraj Collins MD Active KEFLEX 500 MG ORAL CAPS 1 cap QID by mouth CEPHALEXIN 63236067967 No Longer Active Neeraj Collins MD Active DIFLUCAN 150 MG TABS 1 pill every other day x 2 doses FLUCONAZOLE 38649232428 No Longer Active Sahara Rodriguez MD PhD Active MELATONIN 3 MG CAPS 2 po q hs MELATONIN 93533501437 No Longer Active Sahara Rodriguez MD PhD Active MULTIVITAMINS CAPS Take one by mouth daily MULTIPLE VITAMIN 53567430363 No Longer Active Sahara Rodriguez MD PhD Active BACTRIM DS 800-160 MG TAB 1 tab by mouth twice daily TRIMETHOPRIM-SULFAMETHOXAZOLE 34768947997 No Longer Active Sahara Rodriguez MD PhD Active [facility] PROBIOTIC ORAL CHEW 2 daily po PROBIOTIC PRODUCT 67620267556 No Longer Active Sahara Rodriguez MD PhD Active BACTRIM DS 800-160 MG TABS 1 po BID x 7 days SULFAMETHOXAZOLE-TRIMETHOPRIM 46579282363 No Longer Active Vishal Hui MD Active CHANTIX STARTING MONTH EARNEST 0.5 MG X 11 & 1 MG X 42 TABS 0.5mg daily for 3 days , then 0.5mg BID for 4 days, then 1mg BID VARENICLINE TARTRATE 88979334755 No Longer Active TAMARA Gray Active VERAPAMIL HCL CR 120 MG TAB CR 1 po bid VERAPAMIL HCL 62102316332 No Longer Active Vishal Hui MD Active METOPROLOL SUCCINATE 50 MG TB24 1 tablet by mouth daily METOPROLOL SUCCINATE 75925992519 No Longer Active Vishal Hui MD Active SAPHRIS 10 MG SUBL 1 tab po bid ASENAPINE MALEATE 42399892442 No Longer Active Vishal Hui MD Active LISINOPRIL 20 MG TABS 1 tab po qd LISINOPRIL 24903862088 No Longer Active Vishal Hui MD Active LATUDA 20 MG TABS Take one by mouth daily LURASIDONE HCL 59910880226 No Longer Active Vishal Hui MD Active TRAZODONE HCL 50 MG TABS 1/2 tab po qd prn for anxiety TRAZODONE HCL 85320855428 No Longer Active Vishal Hui MD Active OMEPRAZOLE 20 MG TBEC 1 po q a.m. 30min prior to first food intake OMEPRAZOLE 29328209821 Active Vishal Hui MD Active RANITIDINE HCL 150 MG CAPS 1 twice a day RANITIDINE HCL 27316270947 Active Luigi Martínez CHILLER HAND Active LINZESS 290 MCG CAPS Take one by mouth daily LINACLOTIDE 41943615639 No Longer Active Vishal Hui MD Active SAPHRIS 5 MG SUBL 1 tab po qd ASENAPINE MALEATE 77017159860 No Longer Active Vishal Hui MD Active ZALEPLON 10 MG CAPS 1 cap po every other night ZALEPLON 94335101328 No Longer Active Vishal Hui MD Active LYRICA 50 MG CAPS 1 tab po TID PREGABALIN 25882834444 No Longer Active Vishal Hui MD Active LORATADINE 10 MG TABS 1 tab po qd LORATADINE 97907712130 No Longer Active Vishal Hui MD Active VERAPAMIL HCL ER 180 MG CR-TABS 1 tab po bid VERAPAMIL HCL 97383734965 No Longer Active Vishal Hui MD Active MIRALAX POWD 1 capfull once daily POLYETHYLENE GLYCOL 3350 01291863374 No Longer Active Vishal Hui MD Active PREDNISONE 20 MG TABS 1 tab po qd PREDNISONE 29828993016 No Longer Active Renzo Thornton DO Active LEVOFLOXACIN 500 MG TABS 1 tab po qd LEVOFLOXACIN 88728205439 No Longer Active Renzo Thornton DO Active BUSPIRONE HCL 15 MG TABS 1 tab po TID BUSPIRONE HCL 63583433785 No Longer Active Renzo Thornton DO Active BENZTROPINE MESYLATE 1 MG TABS 1 tab po qd BENZTROPINE MESYLATE 14649722205 No Longer Active Renzo Thornton DO Active ATENOLOL 25 MG TABS 1 tab po qd ATENOLOL 28096422969 No Longer Active Renzo Thornton DO Active ESCITALOPRAM OXALATE 20 MG TABS 1 tab po qd ESCITALOPRAM OXALATE 88100086450 No Longer Active Renzo Thornton DO Active ADVAIR DISKUS 250-50 MCG/DOSE AEPB 1 puff BID FLUTICASONE-SALMETEROL 52778309097 No Longer Active Renzo Thornton DO Active PREDNISONE 20 MG TAB 2 tabs daily for 3 days, 1 tab daily for 3 days, 1/2 tab daily for 2 days PREDNISONE 77746549278 No Longer Active Vishal Hui MD Active CEFDINIR 300 MG CAPS by mouth twice a day CEFDINIR 62745397627 No Longer Active Vishal Hui MD Active LANSOPRAZOLE 30 MG CPDR 1 cap po qd LANSOPRAZOLE 70508589446 No Longer Active Vishal Hui MD Active BACLOFEN 20 MG TABS 1 tab po tid BACLOFEN 86131731493 No Longer Active Vishal Hui MD Active ADVAIR DISKUS 250-50 MCG/DOSE AEPB 1 puff BID ADVAIR DISKUS 250-50 MCG/DOSE AEPB FLUTICASONE-SALMETEROL Inactive ESCITALOPRAM OXALATE 20 MG TABS 1 tab po qd ESCITALOPRAM OXALATE 20 MG TABS 484810 ESCITALOPRAM OXALATE Inactive ATENOLOL 25 MG TABS 1 tab po qd ATENOLOL 25 MG TABS 993429 ATENOLOL Inactive BENZTROPINE MESYLATE 1 MG TABS 1 tab po qd BENZTROPINE MESYLATE 1 MG TABS 032569 BENZTROPINE MESYLATE Inactive BUSPIRONE HCL 15 MG TABS 1 tab po TID BUSPIRONE HCL 15 MG TABS 904904 BUSPIRONE HCL Inactive LEVOFLOXACIN 500 MG TABS 1 tab po qd LEVOFLOXACIN 500 MG TABS 418324 LEVOFLOXACIN Inactive PREDNISONE 20 MG TABS 1 tab po qd PREDNISONE 20 MG TABS 549085 PREDNISONE Inactive MIRALAX POWD 1 capfull once daily MIRALAX POWD 260585 POLYETHYLENE GLYCOL 3350 Inactive VERAPAMIL HCL ER 180 MG CR-TABS 1 tab po bid VERAPAMIL HCL ER 180 MG CR-TABS VERAPAMIL HCL Inactive LORATADINE 10 MG TABS 1 tab po qd LORATADINE 10 MG TABS 279028 LORATADINE Inactive LYRICA 50 MG CAPS 1 tab po TID LYRICA 50 MG CAPS PREGABALIN Inactive ZALEPLON 10 MG CAPS 1 cap po every other night ZALEPLON 10 MG CAPS 497839 ZALEPLON Inactive SAPHRIS 5 MG SUBL 1 tab po qd SAPHRIS 5 MG SUBL ASENAPINE MALEATE Inactive TRAZODONE HCL 50 MG TABS 1/2 tab po qd prn for anxiety TRAZODONE HCL 50 MG TABS 967426 TRAZODONE HCL Inactive LATUDA 20 MG TABS Take one by mouth daily LATUDA 20 MG TABS LURASIDONE HCL Inactive LISINOPRIL 20 MG TABS 1 tab po qd LISINOPRIL 20 MG TABS 193892 LISINOPRIL Inactive SAPHRIS 10 MG SUBL 1 [...] twice daily BACTRIM DS 800-160 MG TAB 497828 TRIMETHOPRIM-SULFAMETHOXAZOLE Inactive MULTIVITAMINS CAPS Take one by mouth daily MULTIVITAMINS CAPS MULTIPLE VITAMIN Inactive MELATONIN 3 MG CAPS 2 po q hs MELATONIN 3 MG CAPS 967201 MELATONIN Inactive KEFLEX 500 MG ORAL CAPS 1 cap QID by mouth KEFLEX 500 MG ORAL CAPS 046551 CEPHALEXIN Inactive CLINDAMYCIN HCL 150 MG CAPS 1 four times a day CLINDAMYCIN HCL 150 MG CAPS 743760 CLINDAMYCIN HCL Inactive DIFLUCAN 150 MG TAB 1 tablet by mouth daily DIFLUCAN 150 MG TAB 142884 FLUCONAZOLE Inactive PROZAC 20 MG CAP Take one by mouth daily PROZAC 20 MG CAP 163292 FLUOXETINE HCL Inactive IBUPROFEN 600 MG TAB 1 po TID PRN IBUPROFEN 600 MG TAB 208070 IBUPROFEN Inactive VYVANSE 40 MG CAPS 1 daily, VYVANSE 40 MG CAPS LISDEXAMFETAMINE DIMESYLATE Inactive TRAZODONE HCL 100 MG TAB take 1 at bedtime TRAZODONE HCL 100 MG TAB 668346 TRAZODONE HCL Inactive AMITRIPTYLINE HCL 100 MG TAB one at hs AMITRIPTYLINE HCL 100 MG TAB 601591 AMITRIPTYLINE HCL Inactive AMLODIPINE BESYLATE 5 MG TABS 1 tablet by mouth daily AMLODIPINE BESYLATE 5 MG TABS 241043 AMLODIPINE BESYLATE Inactive LATUDA 80 MG TABS Take one by mouth daily LATUDA 80 MG TABS LURASIDONE HCL Inactive SAPHRIS 5 MG SUBL 1 po bid SAPHRIS 5 MG SUBL ASENAPINE MALEATE Inactive PREDNISONE 20 MG TAB 2 tabs daily for 4 days, 1 tab daily for 4 days, 1/2 tab daily for 4 days PREDNISONE 20 MG TAB 206219 PREDNISONE Inactive AMBIEN 5 MG ORAL TABS 1 tab at bedtime AMBIEN 5 MG ORAL TABS 708731 ZOLPIDEM TARTRATE Inactive PROZAC 20 MG ORAL CAPS 1 tab daily PROZAC 20 MG ORAL CAPS 743566 FLUOXETINE HCL Inactive ABILIFY 15 MG ORAL TABS 1 tab daily ABILIFY 15 MG ORAL TABS 842833 ARIPIPRAZOLE Inactive METOPROLOL TARTRATE 50 MG TAB 1 po bid METOPROLOL TARTRATE 50 MG TAB 489917 METOPROLOL TARTRATE Inactive TRAMADOL HCL 50 MG TABS 1-2 po TID PRN Pain TRAMADOL HCL 50 MG TABS 036549 TRAMADOL HCL Inactive PIROXICAM 20 MG CAPS 1 cap po qd PRN Pain PIROXICAM 20 MG CAPS 784387 PIROXICAM Inactive MINIPRESS 2 MG CAPS 4 cap po at night MINIPRESS 2 MG CAPS 518504 PRAZOSIN HCL Inactive MIRALAX PACK 1 po qd PRN Constipation MIRALAX PACK 524748 POLYETHYLENE GLYCOL 3350 Inactive METOPROLOL TARTRATE 25 MG ORAL TABS 1/2 tablet twice daily for heart rate and blood pressure METOPROLOL TARTRATE 25 MG ORAL TABS 070915 METOPROLOL TARTRATE Inactive VALIUM 5 MG TAB Take 1-2 tablets daily VALIUM 5 MG TAB 435225 DIAZEPAM Inactive FLAGYL 500 MG TAB 1 tablet by mouth bid FLAGYL 500 MG TAB 157422 METRONIDAZOLE Inactive DICLOFENAC POTASSIUM TABS Take 1 tablet twice a day (pt. is not sure of the dose.) DICLOFENAC POTASSIUM TABS DICLOFENAC POTASSIUM TABS Inactive ZITHROMAX Z-EARNEST 250 MG TABS 2 today and then 1 daily for 4 days ZITHROMAX Z-EARNEST 250 MG TABS 2697875 AZITHROMYCIN Inactive PREDNISONE 20 MG TABS 2 daily for 5 days then 1 daily for 5 days PREDNISONE 20 MG TABS 792350 PREDNISONE Inactive PROAIR HFA 108 (90 BASE) MCG/ACT AERS 2 puffs four times a day as needed 2015 PROAIR HFA 108 (90 BASE) MCG/ACT AERS ALBUTEROL SULFATE Inactive HYDROCODONE-ACETAMINOPHEN 5-325 MG TABS 1 to 2 four times a day as needed for pain use until can be seen by specialist HYDROCODONE- ACETAMINOPHEN 5-325 MG TABS 078380 HYDROCODONE-ACETAMINOPHEN Inactive CEFDINIR 300 MG CAPS by mouth twice a day CEFDINIR 300 MG CAPS 795062 CEFDINIR Inactive PREDNISONE 20 MG TAB 2 tabs daily for 3 days, 1 tab daily for 3 days, 1/2 tab daily for 2 days PREDNISONE 20 MG TAB 987518 PREDNISONE Inactive BACTRIM DS 800-160 MG TABS 1 po BID x 7 days BACTRIM DS 800-160 MG TABS 281868 SULFAMETHOXAZOLE-TRIMETHOPRIM Inactive DIFLUCAN 150 MG TABS 1 pill every other day x 2 doses DIFLUCAN 150 MG TABS 420738 FLUCONAZOLE Inactive BACTRIM DS 800-160 MG TABS 1 pill by mouth twice daily BACTRIM DS 800-160 MG TABS 227686 SULFAMETHOXAZOLE-TRIMETHOPRIM Inactive KEFLEX 500 MG CAP 1 po TID x 10 days KEFLEX 500 MG CAP 093859 CEPHALEXIN Inactive Advance Directives Directive Description Start [...] % 11.6-14.8 platelet count 394 10^3/MM^3 10*3/mm3 451-598 4898/01/11 leukocyte count, blood 13.8 10^3/MM^3 10*3/mm3 4.6-10.2 [...] Panel - Chemistry sodium, serum 139 mmol/L 817-640 8596/12/03 carbon dioxide, venous blood 28.5 mmol/L 21.0-32.0 [...] 5.5 % 4.3-6.0 cholesterol, serum 159 mg/dL 740-807 6960/12/03 triglyceride, serum, fasting 118 mg/dL 30-200 HDL [...] Panel - Chemistry sodium, serum 139 mmol/L 051-193 3644/12/22 carbon dioxide, venous blood 26.8 mmol/L 21.0-32.0 potassium, serum 4.2 mmol/L 3.5-5.2 chloride, serum 103 mmol/L 98-107 blood glucose 115 mg/dL 65-110 urea nitrogen, blood 20 mg/dL 7-18 creatinine, serum 0.90 mg/dL 0.55-1.30 alanine aminotransferase (SGPT), serum 38 U/L aspartate aminotransferase (SGOT), serum 19 U/L 15-37 calcium, serum 8.6 mg/dL 8.5-10.1 bilirubin, serum, total 0.30 mg/dL 0.00-1.00 sodium, serum 139 mmol/L 143-422 7267/01/11 carbon dioxide, venous blood 26.6 mmol/L 21.0-32.0 potassium, serum 4.1 mmol/L 3.5-5.2 chloride, serum 100 mmol/L 98-107 blood glucose 86 mg/dL 65-110 urea nitrogen, blood 16 mg/dL 7-18 creatinine, serum 1.00 mg/dL 0.55-1.30 alanine aminotransferase (SGPT), serum 48 U/L aspartate aminotransferase (SGOT), serum 17 U/L 15-37 calcium, serum 9.1 mg/dL 8.5-10.1 bilirubin, serum, total 0.40 mg/dL 0.00-1.00 sodium, serum 142 mmol/L 574-473 9473/06/08 carbon dioxide, venous blood 27.6 mmol/L 21.0-32.0 potassium, serum 4.0 mmol/L 3.5-5.2 chloride, serum 105 mmol/L 98-107 blood glucose 95 mg/dL 65-110 urea nitrogen, blood 8 mg/dL 7-18 creatinine, serum 0.75 mg/dL 0.55-1.30 alanine aminotransferase (SGPT), serum 49 U/L 12-78 aspartate aminotransferase (SGOT), serum 28 U/L 15-37 calcium, serum 9.4 mg/dL 8.5-10.1 bilirubin, serum, total 0.30 mg/dL 0.00-1.00 sodium, serum 140 mmol/L 396-734 9808/08/08 carbon dioxide, venous blood 33.7 mmol/L 21.0-32.0 [...] Rate - Chemistry sodium, serum 139 mmol/L 812-774 7318/12/11 carbon dioxide, venous blood 25.4 mmol/L 21.0-32.0 [...] mg/dL Encounters Code Encounter Date Provider Facility CPT-03274 Level 3 Est. Patient 18:18:53 CDT Neeraj Collins MD [facility] CPT-13577 Level 3 Est. Patient 15:50:44 CDT Vishal Hui MD [facility] CPT-70215 Level 3 Est. Patient 11:36:17 CDT Ahmet Carbajal MD [facility] CPT-05914 Level 3 Est. Patient 13:29:16 CDT Vishal Hui MD [facility] CPT-00343 Level 3 Est. Patient 14:27:52 CDT Neeraj Collins MD [facility] CPT-61487 Level 3 Est. Patient 08:56:03 CDT Luigi Mratínez [facility] CPT-01754 Level 4 Est. Patient 12:11:48 CDT Fabiola Johnson [facility] CPT-61865 Level 3 New Patient 16:53:37 CDT Albert Caldera MD [facility] CPT-39782 Level 3 Est. Patient 11:25:49 CDT Renzo Thornton DO [facility] CPT-25814 Level 3 Est. Patient 15:22:01 CDT Ahmet Carbajal MD [facility] CPT-17248 Level 4 Est. Patient 09:00:51 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 Vishal Hui MD [facility] CPT-36659 Level 3 Est. Patient 11:37:33 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 Vishal Hui MD [facility] CPT-38450 Level 3 Est. Patient 08:41:09 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 Vishal Hui MD [facility] CPT-32357 Level 4 Est. Patient 10:19:35 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 Vishal Hui MD [facility] CPT-62852 Level 3 Est. Patient 13:35:45 CDT Vishal Hui MD [facility] CPT-69533 Level 4 Est. Patient 10:08:37 CDT Vishal Hui MD [facility] CPT-58410 Level 3 Est. Patient 11:22:10 CDT Vishal Hui MD [facility] CPT-49134 Level 3 Est. Patient 11:03:32 CDT Sahara Rodriguez MD [facility]-01012 Level 3 Est. Patient 09:41:35 CDT Vishal Hui MD [facility]-26203 Level 3 Est. Patient 12:00:41 CDT Neeraj Collins MD [facility] CPT-04373 Level 3 Est. Patient 09:16:24 CDT Vishal Hui MD [facility] CPT-97767 Level 4 Est. Patient 13:59:09 CDT Neeraj Collins MD [facility]-23294 Level 3 Est. Patient 15:19:43 CDT Renzo Thornton DO [facility] CPT-83206 Level 3 Est. Patient 18:10:26 CDT Sahara Rodriguez MD [facility] CPT-46726 Level 3 Est. Patient 14:49:50 CDT Vishal Hui MD [facility]-56820 Level 4 Est. Patient 18:41:46 CDT Neeraj Collins MD [facility] CPT-06739 Level 4 Est. Patient 09:18:38 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 Vishal Hui MD [facility] CPT-71516 Level 3 Est. Patient 14:43:55 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 Vishal Hui MD [facility] CPT-96870 Level 3 Est. Patient 15:26:33 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 Sahara Rodriguez MD [facility]-45882 Level 3 Est. Patient 10:32:14 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 Vishal Hui MD [facility] CPT-24886 Level 3 Est. Patient 15:12:52 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 Vishal Hui MD [facility] CPT-58897 Level 4 Est. Patient 09:19:27 CDT Vishal Hui MD [facility] CPT-19376 Level 3 Est. Patient 15:53:00 CDT Renzo Thornton [facility] CPT-14087 Level 3 Est. Patient 15:50:30 CDT Renzo Thornton [facility] CPT-90235 Level 3 Est. Patient 16:55:24 CDT Vishal Hui MD [facility] Procedures Code Procedure Name Date Entry Date Standard Description CPT-08226 Abx/Therapy Injection 08:47:09 CDT CPT-62921 Abx/Therapy Injection 13:29:56 CDT CPT-07479 Abx/Therapy Injection 08:36:16 CDT CPT-00271 Wet Mount - LAB USE ONLY 17:44:58 CDT CPT-31427 UA w micro - LAB USE ONLY 17:44:58 CDT CPT-24445 CMP - LAB USE ONLY 17:44:58 CDT CPT-29891 Venipuncture Draw Fee 17:44:58 CDT CPT-21830 Cervical Min 4V - XRAY USE ONLY 09:01:40 CDT CPT-62682 Chest 2V Frontal and Lat - XRAY USE ONLY 11:06:31 CDT CPT-51214 EKG Trac and Interp - XRAY USE ONLY 11:31:43 CDT 08/26 CPT-J3420 Vitamin B12 1000mcg (Cyanocobalamin) 08:10:26 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 04/12 CPT-95772 Abx/Therapy Injection 08:10:26 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 CPT-G0438 Initial Annual Wellness Exam 19:01:01 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 CPT-J3420 Vitamin B12 1000mcg (Cyanocobalamin) 16:57:46 CDT 08/14 CPT-20805 Recombivax HB Injection Suspension 5 MCG/0.5ML 08:37:50 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 CPT-19534 Immunization Single Admin 08:37:50 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 CPT-J3420 Vitamin B12 1000mcg (Cyanocobalamin) 08:32:16 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 03/11 CPT-81380 Abx/Therapy Injection 08:32:16 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 CPT-43801 Chest 2V Frontal and Lat 11:46:38 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 CPT-44337 Venipuncture Draw Fee 09:12:45 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 CPT-J3420 Vitamin B12 1000mcg (Cyanocobalamin) 08:50:15 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 02/08 CPT-96594 Abx/Therapy Injection 08:50:15 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 CPT-Cryo Cryotherapy 10:19:35 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 CPT-000 Give Appropriate Flu Vaccine 09:22:16 CDT CPT-J3420 Vitamin B12 1000mcg (Cyanocobalamin) 19:08:57 CDT 01/11 CPT-52872 Abx/Therapy Injection 19:08:57 CDT CPT-J3420 Vitamin B12 1000mcg (Cyanocobalamin) 08:19:08 CDT 12/11 CPT-42116 Abx/Therapy Injection 08:19:08 CDT CPT-J3420 Vitamin B12 1000mcg (Cyanocobalamin) 14:48:00 CDT 11/09 CPT-14048 Abx/Therapy Injection 14:47:59 CDT CPT-J3420 Vitamin B12 1000mcg (Cyanocobalamin) 08:34:04 CDT 10/09 CPT-68979 Abx/Therapy Injection 08:34:04 CDT CPT-J3420 Vitamin B12 1000mcg (Cyanocobalamin) 09:18:52 CDT 09/11 CPT-07082 Abx/Therapy Injection 09:18:52 CDT CPT-J3420 Vitamin B12 1000mcg (Cyanocobalamin) 08:35:44 CDT 09/04 CPT-01771 Abx/Therapy Injection 08:35:44 CDT CPT-53587 Immunization Single Admin 11:07:16 CDT CPT-71407 Hepatitis B adult IM 11:07:16 CDT CPT-J3420 Vitamin B12 1000mcg (Cyanocobalamin) 11:00:49 CDT 08/28 CPT-J1040 Depo Medrol 80 mg (Methyl Prednisolone Acetate) 11:00: 49 CDT CPT-04963 Abx/Therapy Injection 11:00:49 CDT CPT-J1040 Depo Medrol 80 mg (Methyl Prednisolone Acetate) 09:16: 23 CDT CPT-J3420 Vitamin B12 1000mcg (Cyanocobalamin) 08:27:05 CDT 08/20 CPT-79857 Abx/Therapy Injection 08:27:05 CDT CPT-17012 Recombivax HB Injection Suspension 5 MCG/0.5ML 10:00:41 CDT CPT-29743 Administration single or combination vaccine inc oral 10 :00:41 CDT CPT-64646 Sono transvag pelvis non OB uterus ovaries cervix 16:36: 57 CDT CPT-23796 LS spine comp w obliq 09:50:55 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 CPT-02447 Abd compl w upright 09:50:55 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 CPT-J1100 Decadron 4mg (Dexamethasone) 15:51:24 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 CPT-J1030 Depo Medrol 40 mg (Methyl Prednisolone Acetate) 15:51: 24 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 CPT-69503 Abx/Therapy Injection 15:51:24 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
--- OUTSIDE RECORDS SUMMARY | 2016-11-04 16:09 | XMS REPORT | Clinical Summary ---
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 Sinus tachycardia ICD-427.89 Inactive Suzan Boo GAS APPLIANCE INSTALLER Smoker/tobacco use disorder-smoking cessation discussed ICD-305.1 Inactive [...] Headache, atypical ICD-784.0 Inactive Albert Caldera MD Shortness of breath [...] with routine healing Inactive Suzan Boo APRN Cellulitis and abscess of breast ICD-611.0 Inactive Ahmet Carbajal MD Bronchitis, acute ICD-466.0 Inactive Ahmet Carbajal MD Medication List Medication Instructions Start Date Stop Date Generic Name NDC Status Provider Patient Instruction TESSALON PERLES 100 MG CAPS 1 three times a day as needed for cough BENZONATATE [id number] No Longer Active Suzan Boo APRN Active BACTRIM DS 800-160 MG TABS 1 twice a day SULFAMETHOXAZOLE-TRIMETHOPRIM 25530264103 No Longer Active Suzan Boo APRN Active DIFLUCAN 150 MG TABS 1 by mouth for yeast FLUCONAZOLE 97819828592 No Longer Active Suzan Boo APRN Active EQ NICOTINE 21 MG/24HR TRANS PT24 Apply daily to stop smoking NICOTINE 91702124334 No Longer Active Suzan Boo APRN Active PREDNISONE 10 MG TABS 2 daily for 5 days then 1 daily for 5 days PREDNISONE 75601283874 No Longer Active Suzan Boo APRN Active LEVAQUIN 500 MG TABS 1 daily for infection LEVOFLOXACIN 59208110735 No Longer Active Suzan Boo APRN Active TROPICAMIDE 0.5 % OPHTH SOLN 1 drop PRN eye spasms TROPICAMIDE 87929189270 No Longer Active Suzan Boo APRN Active PREDNISONE 20 MG TAB 1 tablet daily x 4 days PREDNISONE 92692899398 No Longer Active Suzan Boo APRN Active ACETAMINOPHEN-CODEINE 120-12 MG/5ML SOLN 5 ml by mouth every 4-6 hours if needed for cough ACETAMINOPHEN-CODEINE 39730030464 No Longer Active Suzan Boo APRN Active KEFLEX 500 MG CAP 1 po qid CEPHALEXIN 26693880182 No Longer Active Suzan Boo APRN Active FLOVENT HFA 110 MCG/ACT AERO 2 puffs inhaled b.i.d. FLUTICASONE PROPIONATE HFA 85246635343 Active Renzo Thornton DO Active RISPERDAL 4 MG ORAL TABS 1 tab at bedtime RISPERIDONE 63363134735 Active Samantha Rothman RMA Active ZOFRAN 4 MG TABS 1 po q6hr PRN Nausea ONDANSETRON HCL No Longer Active Suzan Boo APRN Active FLUTICASONE PROPIONATE 50 MCG/ACT SUSP 2 sprays each nostril daily before bed. FLUTICASONE PROPIONATE 27890200324 No Longer Active Suzan Boo APRN Active ASPIRIN 325 MG ORAL TABS 1 tab q.d ASPIRIN 73551078993 No Longer Active Suzan Boo APRN Active HALOPERIDOL 10 MG ORAL TABS 1 tab q.d HALOPERIDOL 87876421477 No Longer Active Suzan Boo APRN Active GUAIFENESIN-CODEINE 100-10 MG/5ML SYRP 5ml every 4 to 6 hours as needed for cough GUAIFENESIN-CODEINE 19980264339 No Longer Active Suzan Boo APRN Active ZITHROMAX Z-EARNEST 250 MG TABS 2 today and then 1 daily for 4 days AZITHROMYCIN 19479770614 No Longer Active Suzan Boo APRN Active CLONAZEPAM 1 MG ORAL TABS 1 twice a day and an additional 1 tablet every other day as needed for pseudoseizures or anxiety CLONAZEPAM 09230682867 Active Ahmet Carbajal MD Active HYDROCODONE-ACETAMINOPHEN 5-325 MG ORAL TABS 1 tab two times a day HYDROCODONE-ACETAMINOPHEN 98108208397 No Longer Active Ahmet Carbajal MD Active LAMICTAL 100 MG ORAL TABS 1 tab 2 times qd. LAMOTRIGINE 34202672316 Active Ahmet Carbajal MD Active PREDNISONE 20 MG TABS 2 daily for 5 days then 1 daily for 5 days PREDNISONE 86418687339 No Longer Active Ahmet Carbajal MD Active FLUTICASONE PROPIONATE 50 MCG/ACT SUSP 1 to 2 sprays each nostril daily for allergies FLUTICASONE PROPIONATE 72503562823 Active Tila Valenzuela Active BENADRYL 25 MG CAP 4 po at bedtime for insomnia DIPHENHYDRAMINE HCL 20771878721 No Longer Active Ahmet Carbajal MD Active ADVAIR DISKUS 250-50 MCG/DOSE INH AEPB 1 puff twice a day for asthma FLUTICASONE-SALMETEROL 98931993657 No Longer Active Ahmet Carbajal MD Active KLONOPIN 1 MG ORAL TABS 1 tab po TID CLONAZEPAM 45292211942 No Longer Active Ahmet Carbajal MD Active ABILIOMAR MAINTENA 400 MG IM SUSR 400mg injection every 26 days ARIPIPRAZOLE 20073106998 No Longer Active Ahmet Carbajal MD Active TRAMADOL HCL 50 MG TABS 1/2-1 tab TID PRN TRAMADOL HCL 33267378885 No Longer Active Ahmet Carbajal MD Active BACTRIM DS 800-160 MG TABS 1 twice a day SULFAMETHOXAZOLE- TRIMETHOPRIM 42567815513 No Longer Active Ahmet Carbajal MD Active PROAIR HFA 108 (90 BASE) MCG/ACT AERS 2 puffs four times a day as needed 2015 ALBUTEROL SULFATE 01940938535 Active Ahmet Carbajal MD Active MONISTAT 7 COMBO PACK WOODROW 100 & 2 MG-% (9GM) VAG KIT 1 applicatorful per vagina q pm x 7 MICONAZOLE NITRATE 83094562799 No Longer Active Ahmet Carbajal MD Active FLAGYL 500 MG TAB 1 tablet by mouth bid METRONIDAZOLE 38818647387 No Longer Active Ahmet Carbajal MD Active OXYCODONE HCL ER 10 MG ORAL T12A 1/2 tab by mouth every 4 hours prn OXYCODONE HCL 57154734132 No Longer Active Ahmet Carbajal MD Active METHYLPREDNISOLONE 4 MG ORAL TABS po daily METHYLPREDNISOLONE 58504743800 No Longer Active Ahmet Carbajal MD Active LEVOFLOXACIN 500 MG ORAL TABS po daily LEVOFLOXACIN 32942324379 No Longer Active Ahmet Carbajal MD Active VIIBRYD 10 MG ORAL TABS Take 1 tablet once a day VILAZODONE HCL 85850330543 No Longer Active Ahmet Carbajal MD Active TOPAMAX 50 MG ORAL TABS 1 tab twice daily TOPIRAMATE 36686118666 No Longer Active Ahmet Carbajal MD Active DICLOFENAC SODIUM 50 MG TBEC 1 tablet by mouth four times daily PRN Pain 2015 DICLOFENAC SODIUM 27134473285 No Longer Active Ahmet Carbajal MD Active ADZENYS XR-ODT 6.3 MG ORAL TBED 1 tab po daily for ADHD AMPHETAMINE 41016301485 No Longer Active Ahmet Carbajal MD Active CHANTIX 1 MG TABS 1 twice a day to help quit smoking VARENICLINE TARTRATE 72530517004 No Longer Active Dipika Burgos MD Active CHANTIX STARTING MONTH EARNEST 0.5 MG X 11 & 1 MG X 42 TABS take as directed 2015 VARENICLINE TARTRATE 66021957388 No Longer Active Dipika Burgos MD Active TESSALON PERLES 100 MG CAP 1 to 2 tablets by mouth 3 times daily as needed for cough BENZONATATE 25456572673 No Longer Active Luigi Martínez APRN Active IMITREX 50 MG ORAL TABS 0.5 po x 1 PRN Headache. May repeat dose x 1 in 2 hours if needed SUMATRIPTAN SUCCINATE 08263383865 Active Ahmet Carbajal MD Active HYDROCODONE-ACETAMINOPHEN 5-325 MG TABS 1 to 2 four times a day as needed for pain use until can be seen by specialist HYDROCODONE- ACETAMINOPHEN 95788793330 No Longer Active Vishal Hui MD Active PROAIR HFA 108 (90 BASE) MCG/ACT AERS 2 puffs four times a day as needed 2015 ALBUTEROL SULFATE 58454264155 No Longer Active Vishal Hui MD Active PREDNISONE 20 MG TABS 2 daily for 5 days then 1 daily for 5 days PREDNISONE 04930880372 No Longer Active Vishal Hui MD Active ZITHROMAX Z-EARNEST 250 MG TABS 2 today and then 1 daily for 4 days AZITHROMYCIN 66196452243 No Longer Active Vishal Hui MD Active DICLOFENAC POTASSIUM TABS Take 1 tablet twice a day (pt. is not sure of the dose.) DICLOFENAC POTASSIUM TABS 65837174242 No Longer Active Vishal Hui MD Active VERAPAMIL HCL ER 120 MG ORAL CR-TABS Take 1 tablet by mouth twice a day. VERAPAMIL HCL 19143289962 Active Vishal Hui MD Active FLAGYL 500 MG TAB 1 tablet by mouth bid METRONIDAZOLE 94601160155 No Longer Active Vishal Hui MD Active VALIUM 5 MG TAB Take 1-2 tablets daily DIAZEPAM 27371480349 No Longer Active Fabiola Johnson APRN Active METOPROLOL TARTRATE 25 MG ORAL TABS 1/2 tablet twice daily for heart rate and blood pressure METOPROLOL TARTRATE 62483908115 No Longer Active Fabiola Johnson APRN Active MIRALAX ORAL POWD 17GMS DAILY IN WATER POLYETHYLENE GLYCOL 3350 41154445004 Active TAMARA Casey Active MIRALAX PACK 1 po qd PRN Constipation POLYETHYLENE GLYCOL 3350 20147775696 No Longer Active Ahmet Carbajal MD Active MINIPRESS 2 MG CAPS 4 cap po at night PRAZOSIN HCL 18221294911 No Longer Active Ahmet Carbajal MD Active PIROXICAM 20 MG CAPS 1 cap po qd PRN Pain PIROXICAM 25954773547 No Longer Active Ahmet Carbajal MD Active TRAMADOL HCL 50 MG TABS 1-2 po TID PRN Pain TRAMADOL HCL 60986690250 No Longer Active Ahmet Carbajal MD Active METOPROLOL TARTRATE 50 MG TAB 1 po bid METOPROLOL TARTRATE 69003032402 No Longer Active Ahmet Carbajal MD Active ABILIFY 15 MG ORAL TABS 1 tab daily ARIPIPRAZOLE 75794123422 No Longer Active Ahmet Carbajal MD Active PROZAC 20 MG ORAL CAPS 1 tab daily FLUOXETINE HCL 89302895104 No Longer Active Ahmet Carbajal MD Active AMBIEN 5 MG ORAL TABS 1 tab at bedtime ZOLPIDEM TARTRATE 85098784050 No Longer Active Ahmet Carbajal MD Active PREDNISONE 20 MG TAB 2 tabs daily for 4 days, 1 tab daily for 4 days, 1/2 tab daily for 4 days PREDNISONE 53738818344 No Longer Active Ahmet Carbajal MD Active KEFLEX 500 MG CAP 1 po TID x 10 days CEPHALEXIN 03366861254 No Longer Active iVshal Hui MD Active SAPHRIS 5 MG SUBL 1 po bid ASENAPINE MALEATE 95080714885 No Longer Active Luigi Martínez APRN Active LATUDA 80 MG TABS Take one by mouth daily LURASIDONE HCL 55578162606 No Longer Active Pacolljanee Martínez GAS APPLIANCE INSTALLER Active AMLODIPINE BESYLATE 5 MG TABS 1 tablet by mouth daily AMLODIPINE BESYLATE 84705695996 No Longer Active Luigi Martínez APRN Active AMITRIPTYLINE HCL 100 MG TAB one at hs AMITRIPTYLINE HCL 20965945475 No Longer Active Vishal Hui MD Active TRAZODONE HCL 100 MG TAB take 1 at bedtime TRAZODONE HCL 75194851811 No Longer Active Vishal Hui MD Active VYVANSE 40 MG CAPS 1 daily, LISDEXAMFETAMINE DIMESYLATE 32012276993 No Longer Active Vishal Hui MD Active IBUPROFEN 600 MG TAB 1 po TID PRN IBUPROFEN 08746188230 No Longer Active Vishal Hui MD Active PROZAC 20 MG CAP Take one by mouth daily FLUOXETINE HCL 60385260096 No Longer Active Vishal Hui MD Active BACTRIM DS 800-160 MG TABS 1 pill by mouth twice daily SULFAMETHOXAZOLE-TRIMETHOPRIM 19630276900 No Longer Active Sahara Rodriguez MD PhD Active DIFLUCAN 150 MG TAB 1 tablet by mouth daily FLUCONAZOLE 43626959749 No Longer Active Vishal Hui MD Active TIZANIDINE HCL 4 MG TABS 1 po q6hr PRN Muscle Spasm/Back Pain TIZANIDINE HCL 72470568152 Active Vishal Hui MD Active CLINDAMYCIN HCL 150 MG CAPS 1 four times a day CLINDAMYCIN HCL 03024932507 No Longer Active Neeraj Collins MD Active KEFLEX 500 MG ORAL CAPS 1 cap QID by mouth CEPHALEXIN 30309368311 No Longer Active Neeraj Collins MD Active DIFLUCAN 150 MG TABS 1 pill every other day x 2 doses FLUCONAZOLE 27483537036 No Longer Active Sahara Rodriguez MD PhD Active MELATONIN 3 MG CAPS 2 po q hs MELATONIN 20183079531 No Longer Active Sahara Rodriguez MD PhD Active MULTIVITAMINS CAPS Take one by mouth daily MULTIPLE VITAMIN 01872021188 No Longer Active Sahara Rodriguez MD PhD Active BACTRIM DS 800-160 MG TAB 1 tab by mouth twice daily TRIMETHOPRIM-SULFAMETHOXAZOLE 67043603166 No Longer Active Sahara Rodriguez MD PhD Active [facility] PROBIOTIC ORAL CHEW 2 daily po PROBIOTIC PRODUCT 01829458617 No Longer Active Sahara Rodriguez MD PhD Active BACTRIM DS 800-160 MG TABS 1 po BID x 7 days SULFAMETHOXAZOLE-TRIMETHOPRIM 25298645534 No Longer Active Vishal Hui MD Active CHANTIX STARTING MONTH EARNEST 0.5 MG X 11 & 1 MG X 42 TABS 0.5mg daily for 3 days , then 0.5mg BID for 4 days, then 1mg BID VARENICLINE TARTRATE 45917436369 No Longer Active TAMARA Gray Active VERAPAMIL HCL CR 120 MG TAB CR 1 po bid VERAPAMIL HCL 39730005406 No Longer Active Vishal Hui MD Active METOPROLOL SUCCINATE 50 MG TB24 1 tablet by mouth daily METOPROLOL SUCCINATE 78769234588 No Longer Active Vishal Hui MD Active SAPHRIS 10 MG SUBL 1 tab po bid ASENAPINE MALEATE 17079022762 No Longer Active Vishal Hui MD Active LISINOPRIL 20 MG TABS 1 tab po qd LISINOPRIL 09978705423 No Longer Active Vishal Hui MD Active LATUDA 20 MG TABS Take one by mouth daily LURASIDONE HCL 78843122464 No Longer Active Vishal Hui MD Active TRAZODONE HCL 50 MG TABS 1/2 tab po qd prn for anxiety TRAZODONE HCL 92454389105 No Longer Active Vishal Hui MD Active OMEPRAZOLE 20 MG TBEC 1 po q a.m. 30min prior to first food intake OMEPRAZOLE 78422212063 Active TAMARA Casey Active RANITIDINE HCL 150 MG CAPS 1 twice a day RANITIDINE HCL 11489825021 Active Jioral Martínez GAS APPLIANCE INSTALLER Active LINZESS 290 MCG CAPS Take one by mouth daily LINACLOTIDE 42364053580 No Longer Active Vishal Hui MD Active SAPHRIS 5 MG SUBL 1 tab po qd ASENAPINE MALEATE 40421986152 No Longer Active Vishal Hui MD Active ZALEPLON 10 MG CAPS 1 cap po every other night ZALEPLON 34223968877 No Longer Active Vishal Hui MD Active LYRICA 50 MG CAPS 1 tab po TID PREGABALIN 75367043646 No Longer Active Vishal Hui MD Active LORATADINE 10 MG TABS 1 tab po qd LORATADINE 94890120039 No Longer Active Vishal Hui MD Active VERAPAMIL HCL ER 180 MG CR-TABS 1 tab po bid VERAPAMIL HCL 12141819073 No Longer Active Vishal Hui MD Active MIRALAX POWD 1 capfull once daily POLYETHYLENE GLYCOL 3350 40324526315 No Longer Active Vishal Hui MD Active PREDNISONE 20 MG TABS 1 tab po qd PREDNISONE 06463879669 No Longer Active Renzo Thornton DO Active LEVOFLOXACIN 500 MG TABS 1 tab po qd LEVOFLOXACIN 81500825672 No Longer Active Renzo Thornton DO Active BUSPIRONE HCL 15 MG TABS 1 tab po TID BUSPIRONE HCL 17196701025 No Longer Active Renzo Thornton DO Active BENZTROPINE MESYLATE 1 MG TABS 1 tab po qd BENZTROPINE MESYLATE 07582572964 No Longer Active Renzo Thornton DO Active ATENOLOL 25 MG TABS 1 tab po qd ATENOLOL 40175605792 No Longer Active Renzo Thornton DO Active ESCITALOPRAM OXALATE 20 MG TABS 1 tab po qd ESCITALOPRAM OXALATE 87478731351 No Longer Active Renzo Thornton DO Active ADVAIR DISKUS 250-50 MCG/DOSE AEPB 1 puff BID FLUTICASONE-SALMETEROL 69798722294 No Longer Active Renzo Thornton DO Active PREDNISONE 20 MG TAB 2 tabs daily for 3 days, 1 tab daily for 3 days, 1/2 tab daily for 2 days PREDNISONE 71691226557 No Longer Active Vishal Hui MD Active CEFDINIR 300 MG CAPS by mouth twice a day CEFDINIR 31024359327 No Longer Active Vishal Hui MD Active LANSOPRAZOLE 30 MG CPDR 1 cap po qd LANSOPRAZOLE 40065646670 No Longer Active Vishal Hui MD Active BACLOFEN 20 MG TABS 1 tab po tid BACLOFEN 04314738314 No Longer Active Vishal Hui MD Active ADVAIR DISKUS 250-50 MCG/DOSE AEPB 1 puff BID ADVAIR DISKUS 250-50 MCG/DOSE AEPB FLUTICASONE-SALMETEROL Inactive ESCITALOPRAM OXALATE 20 MG TABS 1 tab po qd ESCITALOPRAM OXALATE 20 MG TABS 406403 ESCITALOPRAM OXALATE Inactive ATENOLOL 25 MG TABS 1 tab po qd ATENOLOL 25 MG TABS 188767 ATENOLOL Inactive BENZTROPINE MESYLATE 1 MG TABS 1 tab po qd BENZTROPINE MESYLATE 1 MG TABS 333415 BENZTROPINE MESYLATE Inactive BUSPIRONE HCL 15 MG TABS 1 tab po TID BUSPIRONE HCL 15 MG TABS 146362 BUSPIRONE HCL Inactive LEVOFLOXACIN 500 MG TABS 1 tab po qd LEVOFLOXACIN 500 MG TABS 152132 LEVOFLOXACIN Inactive PREDNISONE 20 MG TABS 1 tab po qd PREDNISONE 20 MG TABS 464987 PREDNISONE Inactive MIRALAX POWD 1 capfull once daily MIRALAX POWD 528524 POLYETHYLENE GLYCOL 3350 Inactive VERAPAMIL HCL ER 180 MG CR-TABS 1 tab po bid VERAPAMIL HCL ER 180 MG CR-TABS VERAPAMIL HCL Inactive LORATADINE 10 MG TABS 1 tab po qd LORATADINE 10 MG TABS 456620 LORATADINE Inactive LYRICA 50 MG CAPS 1 tab po TID LYRICA 50 MG CAPS PREGABALIN Inactive ZALEPLON 10 MG CAPS 1 cap po every other night ZALEPLON 10 MG CAPS 329403 ZALEPLON Inactive SAPHRIS 5 MG SUBL 1 tab po qd SAPHRIS 5 MG SUBL ASENAPINE MALEATE Inactive TRAZODONE HCL 50 MG TABS 1/2 tab po qd prn for anxiety TRAZODONE HCL 50 MG TABS 535259 TRAZODONE HCL Inactive LATUDA 20 MG TABS Take one by mouth daily LATUDA 20 MG TABS LURASIDONE HCL Inactive LISINOPRIL 20 MG TABS 1 tab po qd LISINOPRIL 20 MG TABS 856957 LISINOPRIL Inactive SAPHRIS 10 MG SUBL 1 [...] twice daily BACTRIM DS 800-160 MG TAB 310696 TRIMETHOPRIM-SULFAMETHOXAZOLE Inactive MULTIVITAMINS CAPS Take one by mouth daily MULTIVITAMINS CAPS MULTIPLE VITAMIN Inactive MELATONIN 3 MG CAPS 2 po q hs MELATONIN 3 MG CAPS 19950526 MELATONIN Inactive KEFLEX 500 MG ORAL CAPS 1 cap QID by mouth KEFLEX 500 MG ORAL CAPS 174279 CEPHALEXIN Inactive CLINDAMYCIN HCL 150 MG CAPS 1 four times a day CLINDAMYCIN HCL 150 MG CAPS 559894 CLINDAMYCIN HCL Inactive DIFLUCAN 150 MG TAB 1 tablet by mouth daily DIFLUCAN 150 MG TAB 229371 FLUCONAZOLE Inactive PROZAC 20 MG CAP Take one by mouth daily PROZAC 20 MG CAP 036892 FLUOXETINE HCL Inactive IBUPROFEN 600 MG TAB 1 po TID PRN IBUPROFEN 600 MG TAB 232604 IBUPROFEN Inactive VYVANSE 40 MG CAPS 1 daily, VYVANSE 40 MG CAPS LISDEXAMFETAMINE DIMESYLATE Inactive TRAZODONE HCL 100 MG TAB take 1 at bedtime TRAZODONE HCL 100 MG TAB 567656 TRAZODONE HCL Inactive AMITRIPTYLINE HCL 100 MG TAB one at hs AMITRIPTYLINE HCL 100 MG TAB 758391 AMITRIPTYLINE HCL Inactive AMLODIPINE BESYLATE 5 MG TABS 1 tablet by mouth daily AMLODIPINE BESYLATE 5 MG TABS 038397 AMLODIPINE BESYLATE Inactive LATUDA 80 MG TABS Take one by mouth daily LATUDA 80 MG TABS LURASIDONE HCL Inactive SAPHRIS 5 MG SUBL 1 po bid SAPHRIS 5 MG SUBL ASENAPINE MALEATE Inactive PREDNISONE 20 MG TAB 2 tabs daily for 4 days, 1 tab daily for 4 days, 1/2 tab daily for 4 days PREDNISONE 20 MG TAB 852427 PREDNISONE Inactive AMBIEN 5 MG ORAL TABS 1 tab at bedtime AMBIEN 5 MG ORAL TABS 487377 ZOLPIDEM TARTRATE Inactive PROZAC 20 MG ORAL CAPS 1 tab daily PROZAC 20 MG ORAL CAPS 051247 FLUOXETINE HCL Inactive ABILIFY 15 MG ORAL TABS 1 tab daily ABILIFY 15 MG ORAL TABS 944528 ARIPIPRAZOLE Inactive METOPROLOL TARTRATE 50 MG TAB 1 po bid METOPROLOL TARTRATE 50 MG TAB 892745 METOPROLOL TARTRATE Inactive TRAMADOL HCL 50 MG TABS 1-2 po TID PRN Pain TRAMADOL HCL 50 MG TABS 368720 TRAMADOL HCL Inactive PIROXICAM 20 MG CAPS 1 cap po qd PRN Pain PIROXICAM 20 MG CAPS 038263 PIROXICAM Inactive MINIPRESS 2 MG CAPS 4 cap po at night MINIPRESS 2 MG CAPS 009006 PRAZOSIN HCL Inactive MIRALAX PACK 1 po qd PRN Constipation MIRALAX PACK 484859 POLYETHYLENE GLYCOL 3350 Inactive METOPROLOL TARTRATE 25 MG ORAL TABS 1/2 tablet twice daily for heart rate and blood pressure METOPROLOL TARTRATE 25 MG ORAL TABS 540748 METOPROLOL TARTRATE Inactive VALIUM 5 MG TAB Take 1-2 tablets daily VALIUM 5 MG TAB 723718 DIAZEPAM Inactive FLAGYL 500 MG TAB 1 tablet by mouth bid FLAGYL 500 MG TAB 743217 METRONIDAZOLE Inactive DICLOFENAC POTASSIUM TABS Take 1 tablet twice a day (pt. is not sure of the dose.) DICLOFENAC POTASSIUM TABS DICLOFENAC POTASSIUM TABS Inactive ZITHROMAX Z-EARNEST 250 MG TABS 2 today and then 1 daily for 4 days ZITHROMAX Z-EARNEST 250 MG TABS 7462680 AZITHROMYCIN Inactive PREDNISONE 20 MG TABS 2 daily for 5 days then 1 daily for 5 days PREDNISONE 20 MG TABS 438630 PREDNISONE Inactive PROAIR HFA 108 (90 BASE) MCG/ACT AERS 2 puffs four times a day as needed 2015 PROAIR HFA 108 (90 BASE) MCG/ACT AERS ALBUTEROL SULFATE Inactive HYDROCODONE-ACETAMINOPHEN 5-325 MG TABS 1 to 2 four times a day as needed for pain use until can be seen by specialist HYDROCODONE- ACETAMINOPHEN 5-325 MG TABS 734907 HYDROCODONE-ACETAMINOPHEN Inactive TESSALON PERLES 100 MG CAP 1 to 2 tablets by mouth 3 times daily as needed for cough TESSALON PERLES 100 MG CAP 888274 BENZONATATE Inactive CHANTIX STARTING MONTH EARNEST 0.5 [...] Pain 2015 DICLOFENAC SODIUM 50 MG TBEC 363794 DICLOFENAC SODIUM Inactive TOPAMAX 50 MG ORAL TABS 1 tab twice daily TOPAMAX 50 MG ORAL TABS 329674 TOPIRAMATE Inactive VIIBRYD 10 MG ORAL TABS Take 1 tablet once a day VIIBRYD 10 MG ORAL TABS VILAZODONE HCL Inactive LEVOFLOXACIN 500 MG ORAL TABS po daily LEVOFLOXACIN 500 MG ORAL TABS 489712 LEVOFLOXACIN Inactive METHYLPREDNISOLONE 4 MG ORAL TABS po daily METHYLPREDNISOLONE 4 MG ORAL TABS 897599 METHYLPREDNISOLONE Inactive OXYCODONE HCL ER 10 MG ORAL T12A 1/2 tab by mouth every 4 hours prn OXYCODONE HCL ER 10 MG ORAL T12A OXYCODONE HCL Inactive FLAGYL 500 MG TAB 1 tablet by mouth bid FLAGYL 500 MG TAB 487803 METRONIDAZOLE Inactive MONISTAT 7 COMBO PACK WOODROW 100 & 2 MG-% (9GM) VAG KIT 1 applicatorful per vagina q pm x 7 MONISTAT 7 COMBO PACK WOODROW 100 & 2 MG-% (9GM) VAG KIT MICONAZOLE NITRATE Inactive BACTRIM DS 800-160 MG TABS 1 twice a day BACTRIM DS 800-160 MG TABS 216813 SULFAMETHOXAZOLE-TRIMETHOPRIM Inactive TRAMADOL HCL 50 MG TABS 1/2-1 tab TID PRN TRAMADOL HCL 50 MG TABS 598219 TRAMADOL HCL Inactive ABILIFY MAINTENA 400 MG IM SUSR 400mg injection every 26 days ABILIFY MAINTENA 400 MG IM SUSR ARIPIPRAZOLE Inactive KLONOPIN 1 MG ORAL TABS 1 tab po TID KLONOPIN 1 MG ORAL TABS 274045 CLONAZEPAM Inactive ADVAIR DISKUS 250-50 MCG/DOSE INH AEPB 1 puff twice a day for asthma ADVAIR DISKUS 250-50 MCG/DOSE INH AEPB FLUTICASONE- SALMETEROL Inactive BENADRYL 25 MG CAP 4 po at bedtime for insomnia BENADRYL 25 MG CAP DIPHENHYDRAMINE HCL Inactive PREDNISONE 20 MG TABS 2 daily for 5 days then 1 daily for 5 days PREDNISONE 20 MG TABS 634867 PREDNISONE Inactive HYDROCODONE-ACETAMINOPHEN 5-325 MG ORAL TABS 1 tab two times a day HYDROCODONE-ACETAMINOPHEN 5-325 MG ORAL TABS 811166 HYDROCODONE-ACETAMINOPHEN Inactive ZITHROMAX Z-EARNEST 250 MG TABS 2 today and then 1 daily for 4 days ZITHROMAX Z-EARNEST 250 MG TABS 2408681 AZITHROMYCIN Inactive GUAIFENESIN-CODEINE 100-10 MG/5ML SYRP 5ml every 4 to 6 hours as needed for cough GUAIFENESIN-CODEINE 100-10 MG/5ML SYRP 586838 GUAIFENESIN-CODEINE Inactive HALOPERIDOL 10 MG ORAL TABS 1 tab q.d HALOPERIDOL 10 MG ORAL TABS 126561 HALOPERIDOL Inactive ASPIRIN 325 MG ORAL TABS 1 tab q.d ASPIRIN 325 MG ORAL TABS 657641 ASPIRIN Inactive FLUTICASONE PROPIONATE 50 MCG/ACT SUSP 2 sprays each nostril daily before bed. FLUTICASONE PROPIONATE 50 MCG/ACT SUSP 2196136 FLUTICASONE PROPIONATE Inactive ZOFRAN 4 MG TABS 1 po q6hr PRN Nausea ZOFRAN 4 MG TABS 929290 ONDANSETRON HCL Inactive KEFLEX 500 MG CAP 1 po qid KEFLEX 500 MG CAP 874848 CEPHALEXIN Inactive ACETAMINOPHEN-CODEINE 120-12 MG/5ML SOLN 5 ml by mouth every 4-6 hours if needed for cough ACETAMINOPHEN-CODEINE 120-12 MG/5ML SOLN 959025 ACETAMINOPHEN-CODEINE Inactive PREDNISONE 20 MG TAB 1 tablet daily x 4 days PREDNISONE 20 MG TAB 510972 PREDNISONE Inactive TROPICAMIDE 0.5 % OPHTH SOLN 1 drop PRN eye spasms TROPICAMIDE 0.5 % OPHTH SOLN 118155 TROPICAMIDE Inactive LEVAQUIN 500 MG TABS 1 [...] twice a day CEFDINIR 300 MG CAPS 045515 CEFDINIR Inactive PREDNISONE 20 MG TAB 2 tabs daily for 3 days, 1 tab daily for 3 days, 1/2 tab daily for 2 days PREDNISONE 20 MG TAB 139215 PREDNISONE Inactive BACTRIM DS 800-160 MG TABS [...] x 10 days KEFLEX 500 MG CAP 271087 CEPHALEXIN Inactive Advance Directives Directive Description Start [...] % 11.0-15.0 platelet count 443 THOUSAND/UL 10*3/mm3 416-107 0754/03/01 mean platelet volume 8.2 fL 7.5-12.5 leukocyte [...] % 11.0-15.0 platelet count 349 THOUSAND/UL 10*3/mm3 742-825 0716/04/12 mean platelet volume 8.4 fL 7.5-12.5 Lab [...] 369 10^3/MM^3 10*3/mm3 142-424 Lab Report: Chlamydia/GC APTIMA/[id number] - Lab chlamydia DNA probe NOT DETECTED NOT DETECTED Lab Report: Chlamydia/GC APTIMA/[id number] - Microbiology Neisseria gonorrhoeae DNA probe NOT DETECTED NOT DETECTED Lab Report: Chlamydia/GC APTIMA/[id number], Urinalysis, Complete, with Reflex ... - Lab chlamydia DNA probe NOT DETECTED NOT DETECTED Lab Report: Chlamydia/GC APTIMA/[id number], Urinalysis, Complete, with Reflex ... - Microbiology Neisseria gonorrhoeae DNA probe NOT DETECTED NOT DETECTED Lab Report: Chlamydia/GC APTIMA/55240, Urinalysis, Complete, with Reflex ... - Urinalysis microalbumin/total urine volume 2 mg/L Units converted. See lab report for original value. microalbumin/creatinine ratio, urine 9 MCG/MG CREAT mg/L <30 Lab Report: Comp. Metabolic Panel - Chemistry chloride, serum 103 mmol/L 98-107 blood glucose [...] 27.6 mmol/L 21.0-32.0 sodium, serum 142 mmol/L [phone]/08/08 sodium, serum 140 mmol/L 862-334 7765/08/08 creatinine, serum 0.88 mg/dL 0.55-1.30 alanine aminotransferase (SGPT), serum 54 U/L 12-78 aspartate aminotransferase (SGOT), serum 29 U/L 15-37 calcium, serum 9.7 mg/dL 8.5-10.1 bilirubin, serum, total 0.30 mg/dL 0.00-1.00 carbon dioxide, venous blood 33.7 mmol/L 21.0-32.0 potassium, serum 5.0 mmol/L 3.5-5.2 Lab Report: HEPATITIS PANEL, ACUTE W/REFLE - [...] mg/dL Encounters Code Encounter Date Provider Facility CPT-69076 Level 3 Est. Patient 10:00:25 CDT Suzan Boo [facility] CPT-01629 Level 3 Est. Patient 10:29:30 CDT Suzan Boo [facility] CPT-34176 Level 3 Est. Patient 11:04:38 CDT Renzo Thornton [facility] CPT-08415 Level 3 Est. Patient 11:15:58 DRAFTER ELECTRONIC Renzo Thornton [facility] CPT-60844 Level 3 Est. Patient 15:28:23 DRAFTER ELECTRONIC Suzan Boo [facility] CPT-89716 Level 4 Est. Patient 10:20:54 DRAFTER ELECTRONIC Suzan Boo [facility] CPT-45254 Level 3 Est. Patient 11:47:37 DRAFTER ELECTRONIC Ahmet Carbajal MD [facility] CPT-13856 Level 3 Est. Patient 10:40:11 DRAFTER ELECTRONIC Ahmet Carbajal MD [facility] CPT-58622 Level 3 Est. Patient 15:07:06 DRAFTER ELECTRONIC Neeraj Collins MD [facility] CPT-99265 Level 4 Est. Patient 14:45:00 DRAFTER ELECTRONIC Ahmet Carbajal MD [facility] CPT-05186 Level 3 Est. Patient 13:59:59 CDT Luigi Martínez [facility] CPT-08336 Level 3 Est. Patient 18:18:53 CDT Neeraj Collins MD [facility] CPT-50564 Level 3 Est. Patient 15:50:44 CDT Vishal Hui MD [facility] CPT-77451 Level 3 Est. Patient 11:36:17 CDT Ahmet Carbajal MD [facility] CPT-75473 Level 3 Est. Patient 13:29:16 CDT Vishal Hui MD [facility] CPT-01536 Level 3 Est. Patient 14:27:52 CDT Neeraj Collins MD [facility] CPT-63675 Level 3 Est. Patient 08:56:03 CDT Luigi Martínez [facility] CPT-05025 Level 4 Est. Patient 12:11:48 CDT Fabiola Johnson [facility] CPT-49949 Level 3 New Patient 16:53:37 CDT Albert Caldera MD [facility] CPT-59149 Level 3 Est. Patient 11:25:49 CDT Renzo Thornton DO [facility] CPT-61876 Level 3 Est. Patient 15:22:01 CDT Ahmet Carbajal MD [facility] CPT-85253 Level 4 Est. Patient 09:00:51 DRAFTER ELECTRONIC Vishal Hui MD [facility] CPT-18107 Level 3 Est. Patient 11:37:33 DRAFTER ELECTRONIC Vishal Hui MD [facility] CPT-37807 Level 3 Est. Patient 08:41:09 DRAFTER ELECTRONIC Vishal Hui MD [facility] CPT-68663 Level 4 Est. Patient 10:19:35 DRAFTER ELECTRONIC Vishal Hui MD [facility] CPT-37881 Level 3 Est. Patient 13:35:45 CDT Vishal Hui MD [facility] CPT-05059 Level 4 Est. Patient 10:08:37 CDT Vishal Hui MD [facility]-54414 Level 3 Est. Patient 11:22:10 CDT Vishal Hui MD [facility] CPT-71845 Level 3 Est. Patient 11:03:32 CDT Sahara Rodriguez MD [facility]-81264 Level 3 Est. Patient 09:41:35 CDT Vishal Hui MD [facility] CPT-01217 Level 3 Est. Patient 12:00:41 CDT Neeraj Collins MD [facility] CPT-27574 Level 3 Est. Patient 09:16:24 CDT Vishal Hui MD [facility]-42076 Level 4 Est. Patient 13:59:09 CDT Neeraj Collins MD [facility]-60191 Level 3 Est. Patient 15:19:43 CDT Renzo Thornton DO [facility] CPT-91804 Level 3 Est. Patient 18:10:26 CDT Sahara Rodriguez MD [facility] CPT-90333 Level 3 Est. Patient 14:49:50 CDT Vishal Hui MD [facility]-15418 Level 4 Est. Patient 18:41:46 CDT Neeraj Collins MD [facility]-29942 Level 4 Est. Patient 09:18:38 DRAFTER ELECTRONIC Vishal Hui MD [facility]-77954 Level 3 Est. Patient 14:43:55 DRAFTER ELECTRONIC Vishal Hui MD [facility] CPT-44297 Level 3 Est. Patient 15:26:33 DRAFTER ELECTRONIC Sahara Rodriguez MD [facility]-42826 Level 3 Est. Patient 10:32:14 DRAFTER ELECTRONIC Vishal Hui MD [facility]-76530 Level 3 Est. Patient 15:12:52 DRAFTER ELECTRONIC Vishal Hui MD [facility] CPT-53944 Level 4 Est. Patient 09:19:27 CDT Vishal Hui MD [facility] CPT-30860 Level 3 Est. Patient 15:53:00 CDT Renzo Thornton [facility] CPT-03518 Level 3 Est. Patient 15:50:30 CDT Renzo Thornton [facility] CPT-18587 Level 3 Est. Patient 16:55:24 CDT Vishal Hui MD [facility] Procedures Code Procedure Name Date Entry Date Standard Description CPT-46187 Venipuncture Draw Fee 08:41:12 CDT CPT-40416 Abd compl w upright - XRAY USE ONLY 10:27:59 CDT 06/28 CPT-25188 Smoking Cessation counseling 11:15:58 DRAFTER ELECTRONIC CPT-G0439 [facility] Annual Wellness Exam 09:30:58 DRAFTER ELECTRONIC CPT-84402 TSH - LAB USE ONLY 08:50:26 DRAFTER ELECTRONIC CPT-32681 CBC - LAB USE ONLY 08:50:26 DRAFTER ELECTRONIC CPT-62985 Venipuncture Draw Fee 08:50:26 DRAFTER ELECTRONIC CPT-35449 Abx/Therapy Injection 17:34:30 DRAFTER ELECTRONIC CPT-64513 Nexplanon Removal with Reinsertion 14:09:32 CDT CPT-J7307 Nexplanon (Implant) 14:09:32 CDT CPT-OV Office Visit 14:09:32 CDT CPT-31977 UA w micro - LAB USE ONLY 16:21:13 CDT CPT-58098 [place] Mount - LAB USE ONLY 16:21:13 CDT CPT-11471 First Vx - Ix admin for Medicare patients 14:37:47 CDT CPT-50936 Fluzone Preservative Free Intramuscular Suspension 14:37 :47 CDT CPT-98123 Abx/Therapy Injection 13:54:22 CDT CPT-40726 Abx/Therapy Injection 08:47:09 CDT CPT-00271 Abx/Therapy Injection 13:29:56 CDT CPT-95629 Abx/Therapy Injection 08:36:16 CDT CPT-41931 [place] - LAB USE ONLY 17:44:58 CDT CPT-05058 UA w micro - LAB USE ONLY 17:44:58 CDT CPT-66976 CMP - LAB USE ONLY 17:44:58 CDT CPT-49409 Venipuncture Draw Fee 17:44:58 CDT CPT-36926 Cervical Min 4V - XRAY USE ONLY 09:01:40 CDT CPT-79197 Chest 2V Frontal and Lat - XRAY USE ONLY 11:06:31 CDT CPT-96528 EKG Trac and Interp - XRAY USE ONLY 11:31:43 CDT 08/26 CPT-J3420 Vitamin B12 1000mcg (Cyanocobalamin) 08:10:26 DRAFTER ELECTRONIC 04/12 CPT-97302 Abx/Therapy Injection 08:10:26 DRAFTER ELECTRONIC CPT-G0438 Initial Annual Wellness Exam 19:01:01 DRAFTER ELECTRONIC CPT-J3420 Vitamin B12 1000mcg (Cyanocobalamin) 16:57:46 CDT 08/14 CPT-20205 Recombivax HB Injection Suspension 5 MCG/0.5ML 08:37:50 DRAFTER ELECTRONIC CPT-05865 Immunization Single Admin 08:37:50 DRAFTER ELECTRONIC CPT-J3420 Vitamin B12 1000mcg (Cyanocobalamin) 08:32:16 DRAFTER ELECTRONIC 03/11 CPT-70346 Abx/Therapy Injection 08:32:16 DRAFTER ELECTRONIC CPT-07549 Chest 2V Frontal and Lat 11:46:38 DRAFTER ELECTRONIC CPT-31708 Venipuncture Draw Fee 09:12:45 DRAFTER ELECTRONIC CPT-J3420 Vitamin B12 1000mcg (Cyanocobalamin) 08:50:15 DRAFTER ELECTRONIC 02/08 CPT-61421 Abx/Therapy Injection 08:50:15 DRAFTER ELECTRONIC CPT-Cryo Cryotherapy 10:19:35 DRAFTER ELECTRONIC CPT-000 Give Appropriate Flu Vaccine 09:22:16 CDT CPT-J3420 Vitamin B12 1000mcg (Cyanocobalamin) 19:08:57 CDT 01/11 CPT-68556 Abx/Therapy Injection 19:08:57 CDT CPT-J3420 Vitamin B12 1000mcg (Cyanocobalamin) 08:19:08 CDT 12/11 CPT-93916 Abx/Therapy Injection 08:19:08 CDT CPT-J3420 Vitamin B12 1000mcg (Cyanocobalamin) 14:48:00 CDT 11/09 CPT-60413 Abx/Therapy Injection 14:47:59 CDT CPT-J3420 Vitamin B12 1000mcg (Cyanocobalamin) 08:34:04 CDT 10/09 CPT-78766 Abx/Therapy Injection 08:34:04 CDT CPT-J3420 Vitamin B12 1000mcg (Cyanocobalamin) 09:18:52 CDT 09/11 CPT-77904 Abx/Therapy Injection 09:18:52 CDT CPT-J3420 Vitamin B12 1000mcg (Cyanocobalamin) 08:35:44 CDT 09/04 CPT-50530 Abx/Therapy Injection 08:35:44 CDT CPT-98071 Immunization Single Admin 11:07:16 CDT CPT-33759 Hepatitis B adult IM 11:07:16 CDT CPT-J3420 Vitamin B12 1000mcg (Cyanocobalamin) 11:00:49 CDT 08/28 CPT-J1040 Depo Medrol 80 mg (Methyl Prednisolone Acetate) 11:00: 49 CDT CPT-73910 Abx/Therapy Injection 11:00:49 CDT CPT-J1040 Depo Medrol 80 mg (Methyl Prednisolone Acetate) 09:16: 23 CDT CPT-J3420 Vitamin B12 1000mcg (Cyanocobalamin) 08:27:05 CDT 08/20 CPT-23314 Abx/Therapy Injection 08:27:05 CDT CPT-05468 Recombivax HB Injection Suspension 5 MCG/0.5ML 10:00:41 CDT CPT-09941 Administration single or combination vaccine inc oral 10 :00:41 CDT CPT-40693 Sono transvag pelvis non OB uterus ovaries cervix 16:36: 57 CDT CPT-86424 LS spine comp w obliq 09:50:55 DRAFTER ELECTRONIC CPT-86339 Abd compl w upright 09:50:55 DRAFTER ELECTRONIC CPT-J1100 Decadron 4mg (Dexamethasone) 15:51:24 DRAFTER ELECTRONIC CPT-J1030 Depo Medrol 40 mg (Methyl Prednisolone Acetate) 15:51: 24 DRAFTER ELECTRONIC CPT-17285 Abx/Therapy Injection 15:51:24 DRAFTER ELECTRONIC CPT-J1100 Decadron 4mg (Dexamethasone) 15:26:33 DRAFTER ELECTRONIC CPT-J1030 Depo Medrol 40 mg (Methyl Prednisolone Acetate) 15:26: 33 DRAFTER ELECTRONIC CPT-53250 Sono retroperitoneal complete kidneys and bladder 17:15: 30 CDT CPT-88569 Abd compl w upright 16:09:25 CDT CPT-J1100 Decadron 8mg (Dexamethasone) 17:07:57 CDT CPT-79679 Abx/Therapy Injection 17:07:57 CDT CPT-J1100 Decadron 8mg (Dexamethasone) 16:55:24 CDT CPT-60010 Chest 2V Frontal and Lat 16:32:44 CDT
--- OUTSIDE RECORDS SUMMARY | 2016-11-04 16:10 | XMS REPORT | Clinical Summary ---
Author Author Admin, E Organization [employer] Address Unknown Phone Unavailable Allergies, Adverse [...] genital organs Abscess, skin 682.9 Resolved Vishal Hiu MD Cellulitis and abscess of unspecified sites [...] ORAL CHEW 2 daily po PROBIOTIC PRODUCT 51750497439 Active Jillina Frazell [employer] Active IBUPROFEN 600 MG TAB 1 po TID PRN IBUPROFEN 63831683802 Active Jillina Frazell [employer] MA[employer]GER Active BACTRIM DS 800-160 MG TAB 1 tab by mouth twice daily TRIMETHOPRIM-SULFAMETHOXAZOLE 10750542238 Active Neeraj Collins MD Active BACTRIM DS 800-160 MG TABS 1 po BID x 7 days SULFAMETHOXAZOLE-TRIMETHOPRIM 98814183971 No Longer Active Vishal Hui MD Active CHANTIX STARTING MONTH EARNEST 0.5 MG X 11 & 1 MG X 42 TABS 0.5mg daily for 3 days , then 0.5mg BID for 4 days, then 1mg BID VARENICLINE TARTRATE 15438042821 No Longer Active TAMARA Gray Active METOPROLOL TARTRATE 50 MG TAB 1 po bid METOPROLOL TARTRATE 17860447761 Active Vishal Hui MD Active TRAZODONE HCL 100 MG TAB take 1 at bedtime TRAZODONE HCL 31823740897 Active Vishal Hui MD Active AMLODIPINE BESYLATE 5 MG TABS 1 tablet by mouth daily AMLODIPINE BESYLATE 81664285954 Active Vishal Hui MD Active VERAPAMIL HCL CR 120 MG TAB CR 1 po bid VERAPAMIL HCL 16222273199 No Longer Active Vishal Hui MD Active METOPROLOL SUCCINATE 50 MG TB24 1 tablet by mouth daily METOPROLOL SUCCINATE 01692794738 No Longer Active Vishal Hui MD Active TRAMADOL HCL 50 MG TABS 1-2 po TID PRN Pain TRAMADOL HCL 39593141498 Active Vishal Hui MD Active SAPHRIS 5 MG SUBL 1 po bid ASENAPINE MALEATE 38531214604 Active Vishal Hui MD Active SAPHRIS 10 MG SUBL 1 tab po bid ASENAPINE MALEATE 27659802036 No Longer Active Vishal Hui MD Active LISINOPRIL 20 MG TABS 1 tab po qd LISINOPRIL 14887042330 No Longer Active Vishal Hui MD Active BENADRYL 25 MG CAP 2 po tid prn anxiety DIPHENHYDRAMINE HCL 51900568527 Active Vishal Hui MD Active LATUDA 80 MG TABS Take one by mouth daily LURASIDONE HCL 98327229188 Active Vishal Hui MD Active LATUDA 20 MG TABS Take one by mouth daily LURASIDONE HCL 08044114566 No Longer Active Vishal Hui MD Active TRAZODONE HCL 50 MG TABS 1/2 tab po qd prn for anxiety TRAZODONE HCL 40271720046 No Longer Active Vishal Hui MD Active PIROXICAM 20 MG CAPS 1 cap po qd PRN Pain PIROXICAM 89945852959 Active Vishal Hui MD Active OMEPRAZOLE 20 MG TBEC 1 po q a.m. 30min prior to first food intake OMEPRAZOLE 58109091502 Active Vishal Hui MD Active RANITIDINE HCL 150 MG CAPS 1 twice a day RANITIDINE HCL 22209863828 Active Vishal Hui MD Active MULTIVITAMINS CAPS Take one by mouth daily MULTIPLE VITAMIN 14609723600 Active Vishal Hui MD Active MELATONIN 3 MG CAPS 2 po q hs MELATONIN 63213608557 Active Vishal Hui MD Active PROZAC 20 MG CAP Take one by mouth daily FLUOXETINE HCL 84399800335 Active Vishal Hui MD Active LINZESS 290 MCG CAPS Take one by mouth daily LINACLOTIDE 45843988402 Active Vishal Hui MD Active SAPHRIS 5 MG SUBL 1 tab po qd ASENAPINE MALEATE 56827231189 No Longer Active Vishal Hui MD Active ZALEPLON 10 MG CAPS 1 cap po every other night ZALEPLON 53655660601 No Longer Active Vishal Hui MD Active LYRICA 50 MG CAPS 1 tab po TID PREGABALIN 92842869369 No Longer Active Vishal Hui MD Active LORATADINE 10 MG TABS 1 tab po qd LORATADINE 57174808610 No Longer Active Vishal Hui MD Active VERAPAMIL HCL ER 180 MG CR-TABS 1 tab po bid VERAPAMIL HCL 56184461364 No Longer Active Vishal Hui MD Active MIRALAX POWD 1 capfull once daily POLYETHYLENE GLYCOL 3350 16745345445 No Longer Active Vishal Hui MD Active PREDNISONE 20 MG TABS 1 tab po qd PREDNISONE 45918675292 No Longer Active Renzo Thornton DO Active LEVOFLOXACIN 500 MG TABS 1 tab po qd LEVOFLOXACIN 75512805532 No Longer Active Renzo Thornton DO Active BUSPIRONE HCL 15 MG TABS 1 tab po TID BUSPIRONE HCL 70686464575 No Longer Active Renzo Thornton DO Active BENZTROPINE MESYLATE 1 MG TABS 1 tab po qd BENZTROPINE MESYLATE 74981082688 No Longer Active Renzo Thornton DO Active ATENOLOL 25 MG TABS 1 tab po qd ATENOLOL 71609431423 No Longer Active Renzo Thornton DO Active ESCITALOPRAM OXALATE 20 MG TABS 1 tab po qd ESCITALOPRAM OXALATE 45087315517 No Longer Active Renzo Thornton DO Active ADVAIR DISKUS 250-50 MCG/DOSE AEPB 1 puff BID FLUTICASONE-SALMETEROL 93818478733 No Longer Active Renzo Thornton DO Active PREDNISONE 20 MG TAB 2 tabs daily for 3 days, 1 tab daily for 3 days, 1/2 tab daily for 2 days PREDNISONE 64421389104 No Longer Active Vishal Hui MD Active CEFDINIR 300 MG CAPS by mouth twice a day CEFDINIR 02444868381 No Longer Active Vishal Hui MD Active LANSOPRAZOLE 30 MG CPDR 1 cap po qd LANSOPRAZOLE 39876370650 No Longer Active Vishal Hui MD Active TOPAMAX 25 MG TABS 1 tab po bid TOPIRAMATE 81617554542 Active Vishal Hui MD Active MINIPRESS 2 MG CAPS 1 cap po at night PRAZOSIN HCL 88262491577 Active Vishal Hui MD Active BACLOFEN 20 MG TABS 1 tab po tid BACLOFEN 84412625990 Active Vishal Hui MD Active ADVAIR DISKUS 250-50 MCG/DOSE AEPB 1 puff BID ADVAIR DISKUS 250-50 MCG/DOSE AEPB FLUTICASONE-SALMETEROL Inactive ESCITALOPRAM OXALATE 20 MG TABS 1 tab po qd ESCITALOPRAM OXALATE 20 MG TABS 342065 ESCITALOPRAM OXALATE Inactive ATENOLOL 25 MG TABS 1 tab po qd ATENOLOL 25 MG TABS 482150 ATENOLOL Inactive BENZTROPINE MESYLATE 1 MG TABS 1 tab po qd BENZTROPINE MESYLATE 1 MG TABS 880376 BENZTROPINE MESYLATE Inactive BUSPIRONE HCL 15 MG TABS 1 tab po TID BUSPIRONE HCL 15 MG TABS 078646 BUSPIRONE HCL Inactive LEVOFLOXACIN 500 MG TABS 1 tab po qd LEVOFLOXACIN 500 MG TABS 052123 LEVOFLOXACIN Inactive PREDNISONE 20 MG TABS 1 tab po qd PREDNISONE 20 MG TABS 966271 PREDNISONE Inactive MIRALAX POWD 1 capfull once daily MIRALAX POWD 460812 POLYETHYLENE GLYCOL 3350 Inactive VERAPAMIL HCL ER 180 MG CR-TABS 1 tab po bid VERAPAMIL HCL ER 180 MG CR-TABS VERAPAMIL HCL Inactive LORATADINE 10 MG TABS 1 tab po qd LORATADINE 10 MG TABS 428405 LORATADINE Inactive LYRICA 50 MG CAPS 1 tab po TID LYRICA 50 MG CAPS PREGABALIN Inactive ZALEPLON 10 MG CAPS 1 cap po every other night ZALEPLON 10 MG CAPS 385851 ZALEPLON Inactive SAPHRIS 5 MG SUBL 1 tab po qd SAPHRIS 5 MG SUBL ASENAPINE MALEATE Inactive TRAZODONE HCL 50 MG TABS 1/2 tab po qd prn for anxiety TRAZODONE HCL 50 MG TABS 657968 TRAZODONE HCL Inactive LATUDA 20 MG TABS Take one by mouth daily LATUDA 20 MG TABS LURASIDONE HCL Inactive LISINOPRIL 20 MG TABS 1 tab po qd LISINOPRIL 20 MG TABS 329622 LISINOPRIL Inactive SAPHRIS 10 MG SUBL 1 [...] twice a day CEFDINIR 300 MG CAPS 353230 CEFDINIR Inactive PREDNISONE 20 MG TAB 2 tabs daily for 3 days, 1 tab daily for 3 days, 1/2 tab daily for 2 days PREDNISONE 20 MG TAB 547176 PREDNISONE Inactive BACTRIM DS 800-160 MG TABS [...] Panel - Chemistry sodium, serum 141 mmol/L 958-985 7548 potassium, serum 4.3 mmol/L 3.5-5.2 chloride, serum [...] Panel - Chemistry sodium, serum 139 mmol/L 641-968 4055/12/31 potassium, serum 4.8 mmol/L 3.5-5.2 chloride, serum 106 mmol/L 98-107 carbon dioxide, venous blood 24.3 mmol/L 21.0-32.0 blood glucose 90 mg/dL 65-110 urea nitrogen, blood 16 mg/dL 7-18 creatinine, serum 1.00 mg/dL 0.60-1.30 alanine aminotransferase (SGPT), serum 41 U/L 12-78 aspartate aminotransferase (SGOT), serum 17 U/L 15-37 calcium, serum 8.6 mg/dL 8.5-10.1 bilirubin, serum, total 0.30 mg/dL 0.00-1.00 cholesterol, serum 108 mg/dL 571-828 0693/12/31 triglyceride, serum, fasting 120 mg/dL 30-200 HDL [...] 5.0-8.5 Encounters Code Encounter Date Provider Facility CPT-73342 Level 3 Est. Patient 14:49:50 CDT Vishal Hui MD [facility] CPT-04455 Level 4 Est. Patient 18:41:46 CDT Neeraj Collins MD [facility] CPT-55366 Level 4 Est. Patient 09:18:38 BOILER OUT Vishal Hui MD [facility] CPT-03308 Level 3 Est. Patient 14:43:55 BOILER OUT Vishal Hui MD [facility] CPT-08739 Level 3 Est. Patient 15:26:33 BOILER OUT Sahara Rodriguez MD, PhD [facility] CPT-24242 Level 3 Est. Patient 10:32:14 BOILER OUT Vishal Hui MD [facility] CPT-73312 Level 3 Est. Patient 15:12:52 BOILER OUT Vishal Hui MD [facility] CPT-93433 Level 4 Est. Patient 09:19:27 CDT Vishal Hui MD [facility] CPT-66361 Level 3 Est. Patient 15:53:00 CDT Renzo Thornton DO [facility] CPT-37244 Level 3 Est. Patient 15:50:30 CDT Renzo Thornton [facility] CPT-70805 Level 3 Est. Patient 16:55:24 CDT Vishal Hui MD [facility] Procedures Code Procedure Name Date Entry Date Standard Description CPT-67607 Sono transvag pelvis non OB uterus ovaries cervix 16:36: 57 CDT CPT-70917 LS spine comp w obliq 09:50:55 BOILER OUT CPT-65168 Abd compl w upright 09:50:55 BOILER OUT CPT-J1100 Decadron 4mg (Dexamethasone) 15:51:24 BOILER OUT CPT-J1030 Depo Medrol 40 mg (Methyl Prednisolone Acetate) 15:51: 24 BOILER OUT CPT-80417 Abx/Therapy Injection 15:51:24 BOILER OUT CPT-J1100 Decadron 4mg (Dexamethasone) 15:26:33 BOILER OUT CPT-J1030 Depo Medrol 40 mg (Methyl Prednisolone Acetate) 15:26: 33 BOILER OUT CPT-91974 Sono retroperitoneal complete kidneys and bladder 17:15: 30 CDT CPT-21348 Abd compl w upright 16:09:25 CDT CPT-J1100 Decadron 8mg (Dexamethasone) 17:07:57 CDT CPT-24925 Abx/Therapy Injection 17:07:57 CDT CPT-J1100 Decadron 8mg (Dexamethasone) 16:55:24 CDT CPT-62186 Chest 2V Frontal and Lat 16:32:44 CDT
--- OUTSIDE RECORDS SUMMARY | 2016-11-04 16:12 | XMS REPORT | Clinical Summary ---
Author Author Admin, BRIELLEE Organization [employer] Address Unknown Phone Unavailable Allergies, Adverse Reactions, [...] sites Morbid obesity 278.01 Active Juliet Kimbrough PHARMACIST IN CHARGE OWNER Morbid obesity 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 Active Juliet [...] breath Nocturnal hypoxia 799.02 Active Fabiola Johnson PHARMACIST IN CHARGE OWNER Hypoxemia Neck pain 723.1 Resolved Vishal Hui [...] day to help quit smoking VARENICLINE TARTRATE 41805115662 No Longer Active Dipika Burgos MD Active CHANTIX STARTING MONTH EARNEST 0.5 MG X 11 & 1 MG X 42 TABS take as directed 2015 VARENICLINE TARTRATE 77849519923 No Longer Active Dipika Burgos MD Active MONISTAT 7 COMBO PACK WOODROW 100 & 2 MG-% (9GM) VAG KIT 1 applicatorful per vagina q pm x 7 MICONAZOLE NITRATE 79029247557 Active Jillina Frazell PHARMACIST IN CHARGE OWNER Active FLAGYL 500 MG TAB 1 tablet by mouth bid METRONIDAZOLE 69576580274 Active Jillina Frazell PHARMACIST IN CHARGE OWNER Active TESSALON PERLES 100 MG CAP 1 to 2 tablets by mouth 3 times daily as needed for cough BENZONATATE 90978577327 No Longer Active Jillina Frazell PHARMACIST IN CHARGE OWNER Active ABILIFY MAINTENA 400 MG IM SUSR 400mg injection every 26 days ARIPIPRAZOLE 45892133693 Active Silvia Casey DIRECTOR BUSINESS SYSTEMS Active IMITREX 50 MG ORAL TABS 0.5 po x 1 PRN Headache. May repeat dose x 1 in 2 hours if needed SUMATRIPTAN SUCCINATE 48199399415 Active Vishal Hui MD Active OXYCODONE HCL ER 10 MG ORAL T12A 1/2 tab by mouth every 4 hours prn OXYCODONE HCL 44339127559 Active Neeraj Collins MD Active METHYLPREDNISOLONE 4 MG ORAL TABS po daily METHYLPREDNISOLONE 01216339534 Active Vishal Hui MD Active LEVOFLOXACIN 500 MG ORAL TABS po daily LEVOFLOXACIN 52672356645 Active Vishal Hui MD Active HYDROCODONE-ACETAMINOPHEN 5-325 MG TABS 1 to 2 four times a day as needed for pain use until can be seen by specialist HYDROCODONE- ACETAMINOPHEN 26167955766 No Longer Active Vishal Hui MD Active PROAIR HFA 108 (90 BASE) MCG/ACT AERS 2 puffs four times a day as needed 2015 ALBUTEROL SULFATE 55186943622 No Longer Active Vishal Hui MD Active PREDNISONE 20 MG TABS 2 daily for 5 days then 1 daily for 5 days PREDNISONE 20342855964 No Longer Active Vishal Hui MD Active ZITHROMAX Z-EARNEST 250 MG TABS 2 today and then 1 daily for 4 days AZITHROMYCIN 01631732407 No Longer Active Vishal Hui MD Active DICLOFENAC SODIUM 50 MG TBEC 1 tablet by mouth four times daily PRN Pain 2015 DICLOFENAC SODIUM 78640330876 Active Vishal Hui MD Active DICLOFENAC POTASSIUM TABS Take 1 tablet twice a day (pt. is not sure of the dose.) DICLOFENAC POTASSIUM TABS 30291457426 No Longer Active Vishal Hui MD Active VERAPAMIL HCL ER 120 MG ORAL CR-TABS Take 1 tablet by mouth twice a day. VERAPAMIL HCL 40668314033 Active Vishal Hui MD Active FLAGYL 500 MG TAB 1 tablet by mouth bid METRONIDAZOLE 10990720217 No Longer Active Vishal Hui MD Active FLUTICASONE PROPIONATE 50 MCG/ACT SUSP 2 sprays each nostril daily before bed. FLUTICASONE PROPIONATE 42671510338 Active Fabiola Johnson APRN Active ADZENYS XR-ODT 6.3 MG ORAL TBED 1 tab po daily for ADHD AMPHETAMINE 25392591390 Active Fabiola Johnson APRN Active BENADRYL 25 MG CAP 4 po at bedtime for insomnia DIPHENHYDRAMINE HCL 83454869346 Active Fabiola Johnson APRN Active KLONOPIN 1 MG ORAL TABS 1 tab po TID CLONAZEPAM 47548395388 Active Fabiola Johnson APRN Active VALIUM 5 MG TAB Take 1-2 tablets daily DIAZEPAM 67400925399 No Longer Active Fabiola Johnson APRN Active METOPROLOL TARTRATE 25 MG ORAL TABS 1/2 tablet twice daily for heart rate and blood pressure METOPROLOL TARTRATE 80931035566 No Longer Active Fabiola Johnson APRN Active MIRALAX ORAL POWD 17GMS DAILY IN WATER POLYETHYLENE GLYCOL 3350 92774262206 Active Vishal Hui MD Active VIIBRYD 10 MG ORAL TABS Take 1 tablet once a day VILAZODONE HCL 03328452620 Active Ahmet Carbajal MD Active MIRALAX PACK 1 po qd PRN Constipation POLYETHYLENE GLYCOL 3350 09229244190 No Longer Active Ahmet Carbajal MD Active MINIPRESS 2 MG CAPS 4 cap po at night PRAZOSIN HCL 25550194538 No Longer Active Ahmet Carbajal MD Active PIROXICAM 20 MG CAPS 1 cap po qd PRN Pain PIROXICAM 77105430152 No Longer Active Ahmet Carbajal MD Active TRAMADOL HCL 50 MG TABS 1-2 po TID PRN Pain TRAMADOL HCL 70575768990 No Longer Active Ahmet Carbajal MD Active METOPROLOL TARTRATE 50 MG TAB 1 po bid METOPROLOL TARTRATE 42763832282 No Longer Active Ahmet Carbajal MD Active ABILIFY 15 MG ORAL TABS 1 tab daily ARIPIPRAZOLE 48734182871 No Longer Active Ahmet Carbajal MD Active PROZAC 20 MG ORAL CAPS 1 tab daily FLUOXETINE HCL 54737453291 No Longer Active Ahmet Carbajal MD Active AMBIEN 5 MG ORAL TABS 1 tab at bedtime ZOLPIDEM TARTRATE 91995087413 No Longer Active Ahmet Carbajal MD Active PREDNISONE 20 MG TAB 2 tabs daily for 4 days, 1 tab daily for 4 days, 1/2 tab daily for 4 days PREDNISONE 62517424657 No Longer Active Ahmet Carbajal MD Active KEFLEX 500 MG CAP 1 po TID x 10 days CEPHALEXIN 91721574447 No Longer Active Vishal Hui MD Active TOPAMAX 50 MG ORAL TABS 1 tab twice daily TOPIRAMATE 84592946349 Active Vishal Hui MD Active SAPHRIS 5 MG SUBL 1 po bid ASENAPINE MALEATE 91809522824 No Longer Active Luigi Martínez APRN Active LATUDA 80 MG TABS Take one by mouth daily LURASIDONE HCL 57406075224 No Longer Active Luigi Martínez APRN Active AMLODIPINE BESYLATE 5 MG TABS 1 tablet by mouth daily AMLODIPINE BESYLATE 66692510596 No Longer Active Luigi Martínez APRN Active AMITRIPTYLINE HCL 100 MG TAB one at hs AMITRIPTYLINE HCL 10108271404 No Longer Active Vishal Hui MD Active TRAZODONE HCL 100 MG TAB take 1 at bedtime TRAZODONE HCL 33917216602 No Longer Active Vishal Hui MD Active VYVANSE 40 MG CAPS 1 daily, LISDEXAMFETAMINE DIMESYLATE 10728826959 No Longer Active Vishal Hui MD Active IBUPROFEN 600 MG TAB 1 po TID PRN IBUPROFEN 72069872903 No Longer Active Vishal Hui MD Active PROZAC 20 MG CAP Take one by mouth daily FLUOXETINE HCL 58477812751 No Longer Active Vihsal Hui MD Active ZOFRAN 4 MG TABS 1 po q6hr PRN Nausea ONDANSETRON HCL Active Vishal Hui MD Active BACTRIM DS 800-160 MG TABS 1 pill by mouth twice daily SULFAMETHOXAZOLE-TRIMETHOPRIM 16782234421 No Longer Active Sahara Rodriguez MD PhD Active DIFLUCAN 150 MG TAB 1 tablet by mouth daily FLUCONAZOLE 50789519388 No Longer Active Vishal Hui MD Active TIZANIDINE HCL 4 MG TABS 1 po q6hr PRN Muscle Spasm/Back Pain TIZANIDINE HCL 65747188758 Active Vishal Hui MD Active CLINDAMYCIN HCL 150 MG CAPS 1 four times a day CLINDAMYCIN HCL 82559963751 No Longer Active Neeraj Collins MD Active KEFLEX 500 MG ORAL CAPS 1 cap QID by mouth CEPHALEXIN 55764175198 No Longer Active Neeraj Collins MD Active DIFLUCAN 150 MG TABS 1 pill every other day x 2 doses FLUCONAZOLE 11368887664 No Longer Active Sahara Rodriguez MD PhD Active MELATONIN 3 MG CAPS 2 po q hs MELATONIN 71501055428 No Longer Active Sahara Rodriguez MD PhD Active MULTIVITAMINS CAPS Take one by mouth daily MULTIPLE VITAMIN 95948001498 No Longer Active Sahara Rodriguez MD PhD Active BACTRIM DS 800-160 MG TAB 1 tab by mouth twice daily TRIMETHOPRIM-SULFAMETHOXAZOLE 44952794238 No Longer Active Sahara Rodriguez MD PhD Active [facility] PROBIOTIC ORAL CHEW 2 daily po PROBIOTIC PRODUCT 12544217578 No Longer Active Sahara Rodriguez MD PhD Active BACTRIM DS 800-160 MG TABS 1 po BID x 7 days SULFAMETHOXAZOLE-TRIMETHOPRIM 83873621926 No Longer Active Vishal Hui MD Active CHANTIX STARTING MONTH EARNEST 0.5 MG X 11 & 1 MG X 42 TABS 0.5mg daily for 3 days , then 0.5mg BID for 4 days, then 1mg BID VARENICLINE TARTRATE 02437877381 No Longer Active TAMARA Gray Active VERAPAMIL HCL CR 120 MG TAB CR 1 po bid VERAPAMIL HCL 32032736282 No Longer Active Vishal Hui MD Active METOPROLOL SUCCINATE 50 MG TB24 1 tablet by mouth daily METOPROLOL SUCCINATE 98313930716 No Longer Active Vishal Hui MD Active SAPHRIS 10 MG SUBL 1 tab po bid ASENAPINE MALEATE 20541090500 No Longer Active Vishal Hui MD Active LISINOPRIL 20 MG TABS 1 tab po qd LISINOPRIL 55222991152 No Longer Active Vishal Hui MD Active LATUDA 20 MG TABS Take one by mouth daily LURASIDONE HCL 16403254010 No Longer Active Vishal Hui MD Active TRAZODONE HCL 50 MG TABS 1/2 tab po qd prn for anxiety TRAZODONE HCL 46401042013 No Longer Active Vishal Hui MD Active OMEPRAZOLE 20 MG TBEC 1 po q a.m. 30min prior to first food intake OMEPRAZOLE 07963492737 Active Vishal Hui MD Active RANITIDINE HCL 150 MG CAPS 1 twice a day RANITIDINE HCL 15329143174 Active Jillina Frazell PHARMACIST IN CHARGE OWNER Active LINZESS 290 MCG CAPS Take one by mouth daily LINACLOTIDE 41037427640 No Longer Active Vishal Hui MD Active SAPHRIS 5 MG SUBL 1 tab po qd ASENAPINE MALEATE 01483444147 No Longer Active Vishal Hui MD Active ZALEPLON 10 MG CAPS 1 cap po every other night ZALEPLON 15919780422 No Longer Active Vishal Hui MD Active LYRICA 50 MG CAPS 1 tab po TID PREGABALIN 17278749769 No Longer Active Vishal Hui MD Active LORATADINE 10 MG TABS 1 tab po qd LORATADINE 95549361079 No Longer Active Vishal Hui MD Active VERAPAMIL HCL ER 180 MG CR-TABS 1 tab po bid VERAPAMIL HCL 91048257525 No Longer Active Vishal Hui MD Active MIRALAX POWD 1 capfull once daily POLYETHYLENE GLYCOL 3350 94116715702 No Longer Active Vishal Hui MD Active PREDNISONE 20 MG TABS 1 tab po qd PREDNISONE 41295647296 No Longer Active Renzo Thornton DO Active LEVOFLOXACIN 500 MG TABS 1 tab po qd LEVOFLOXACIN 52259760879 No Longer Active Renzo Thornton DO Active BUSPIRONE HCL 15 MG TABS 1 tab po TID BUSPIRONE HCL 88119152623 No Longer Active Renzo Thornton DO Active BENZTROPINE MESYLATE 1 MG TABS 1 tab po qd BENZTROPINE MESYLATE 14761396330 No Longer Active Renzo Thornton DO Active ATENOLOL 25 MG TABS 1 tab po qd ATENOLOL 23163511651 No Longer Active Renzo Thornton DO Active ESCITALOPRAM OXALATE 20 MG TABS 1 tab po qd ESCITALOPRAM OXALATE 43397886618 No Longer Active Renzo Thornton DO Active ADVAIR DISKUS 250-50 MCG/DOSE AEPB 1 puff BID FLUTICASONE-SALMETEROL 08636997176 No Longer Active Renzo Thornton DO Active PREDNISONE 20 MG TAB 2 tabs daily for 3 days, 1 tab daily for 3 days, 1/2 tab daily for 2 days PREDNISONE 54792710537 No Longer Active Vishal Hui MD Active CEFDINIR 300 MG CAPS by mouth twice a day CEFDINIR 77821207740 No Longer Active Vishal Hui MD Active LANSOPRAZOLE 30 MG CPDR 1 cap po qd LANSOPRAZOLE 90405631612 No Longer Active Vishal Hui MD Active BACLOFEN 20 MG TABS 1 tab po tid BACLOFEN 02472314043 No Longer Active Vishal Hui MD Active ADVAIR DISKUS 250-50 MCG/DOSE AEPB 1 puff BID ADVAIR DISKUS 250-50 MCG/DOSE AEPB FLUTICASONE-SALMETEROL Inactive ESCITALOPRAM OXALATE 20 MG TABS 1 tab po qd ESCITALOPRAM OXALATE 20 MG TABS 274749 ESCITALOPRAM OXALATE Inactive ATENOLOL 25 MG TABS 1 tab po qd ATENOLOL 25 MG TABS 211183 ATENOLOL Inactive BENZTROPINE MESYLATE 1 MG TABS 1 tab po qd BENZTROPINE MESYLATE 1 MG TABS 648471 BENZTROPINE MESYLATE Inactive BUSPIRONE HCL 15 MG TABS 1 tab po TID BUSPIRONE HCL 15 MG TABS 236373 BUSPIRONE HCL Inactive LEVOFLOXACIN 500 MG TABS 1 tab po qd LEVOFLOXACIN 500 MG TABS 395140 LEVOFLOXACIN Inactive PREDNISONE 20 MG TABS 1 tab po qd PREDNISONE 20 MG TABS 892687 PREDNISONE Inactive MIRALAX POWD 1 capfull once daily MIRALAX POWD 130453 POLYETHYLENE GLYCOL 3350 Inactive VERAPAMIL HCL ER 180 MG CR-TABS 1 tab po bid VERAPAMIL HCL ER 180 MG CR-TABS VERAPAMIL HCL Inactive LORATADINE 10 MG TABS 1 tab po qd LORATADINE 10 MG TABS 434207 LORATADINE Inactive LYRICA 50 MG CAPS 1 tab po TID LYRICA 50 MG CAPS PREGABALIN Inactive ZALEPLON 10 MG CAPS 1 cap po every other night ZALEPLON 10 MG CAPS 422229 ZALEPLON Inactive SAPHRIS 5 MG SUBL 1 tab po qd SAPHRIS 5 MG SUBL ASENAPINE MALEATE Inactive TRAZODONE HCL 50 MG TABS 1/2 tab po qd prn for anxiety TRAZODONE HCL 50 MG TABS 316899 TRAZODONE HCL Inactive LATUDA 20 MG TABS Take one by mouth daily LATUDA 20 MG TABS LURASIDONE HCL Inactive LISINOPRIL 20 MG TABS 1 tab po qd LISINOPRIL 20 MG TABS 864025 LISINOPRIL Inactive SAPHRIS 10 MG SUBL 1 [...] twice daily BACTRIM DS 800-160 MG TAB 813009 TRIMETHOPRIM-SULFAMETHOXAZOLE Inactive MULTIVITAMINS CAPS Take one by mouth daily MULTIVITAMINS CAPS MULTIPLE VITAMIN Inactive MELATONIN 3 MG CAPS 2 po q hs MELATONIN 3 MG CAPS 428060 MELATONIN Inactive KEFLEX 500 MG ORAL CAPS 1 cap QID by mouth KEFLEX 500 MG ORAL CAPS 045968 CEPHALEXIN Inactive CLINDAMYCIN HCL 150 MG CAPS 1 four times a day CLINDAMYCIN HCL 150 MG CAPS 518968 CLINDAMYCIN HCL Inactive DIFLUCAN 150 MG TAB 1 tablet by mouth daily DIFLUCAN 150 MG TAB 533832 FLUCONAZOLE Inactive PROZAC 20 MG CAP Take one by mouth daily PROZAC 20 MG CAP 311978 FLUOXETINE HCL Inactive IBUPROFEN 600 MG TAB 1 po TID PRN IBUPROFEN 600 MG TAB 356422 IBUPROFEN Inactive VYVANSE 40 MG CAPS 1 daily, VYVANSE 40 MG CAPS LISDEXAMFETAMINE DIMESYLATE Inactive TRAZODONE HCL 100 MG TAB take 1 at bedtime TRAZODONE HCL 100 MG TAB 099203 TRAZODONE HCL Inactive AMITRIPTYLINE HCL 100 MG TAB one at hs AMITRIPTYLINE HCL 100 MG TAB 487203 AMITRIPTYLINE HCL Inactive AMLODIPINE BESYLATE 5 MG TABS 1 tablet by mouth daily AMLODIPINE BESYLATE 5 MG TABS 329104 AMLODIPINE BESYLATE Inactive LATUDA 80 MG TABS Take one by mouth daily LATUDA 80 MG TABS LURASIDONE HCL Inactive SAPHRIS 5 MG SUBL 1 po bid SAPHRIS 5 MG SUBL ASENAPINE MALEATE Inactive PREDNISONE 20 MG TAB 2 tabs daily for 4 days, 1 tab daily for 4 days, 1/2 tab daily for 4 days PREDNISONE 20 MG TAB 139426 PREDNISONE Inactive AMBIEN 5 MG ORAL TABS 1 tab at bedtime AMBIEN 5 MG ORAL TABS 896217 ZOLPIDEM TARTRATE Inactive PROZAC 20 MG ORAL CAPS 1 tab daily PROZAC 20 MG ORAL CAPS 971727 FLUOXETINE HCL Inactive ABILIFY 15 MG ORAL TABS 1 tab daily ABILIFY 15 MG ORAL TABS 392733 ARIPIPRAZOLE Inactive METOPROLOL TARTRATE 50 MG TAB 1 po bid METOPROLOL TARTRATE 50 MG TAB 664440 METOPROLOL TARTRATE Inactive TRAMADOL HCL 50 MG TABS 1-2 po TID PRN Pain TRAMADOL HCL 50 MG TABS 977621 TRAMADOL HCL Inactive PIROXICAM 20 MG CAPS 1 cap po qd PRN Pain PIROXICAM 20 MG CAPS 199695 PIROXICAM Inactive MINIPRESS 2 MG CAPS 4 cap po at night MINIPRESS 2 MG CAPS 730063 PRAZOSIN HCL Inactive MIRALAX PACK 1 po qd PRN Constipation MIRALAX PACK 204287 POLYETHYLENE GLYCOL 3350 Inactive METOPROLOL TARTRATE 25 MG ORAL TABS 1/2 tablet twice daily for heart rate and blood pressure METOPROLOL TARTRATE 25 MG ORAL TABS 023168 METOPROLOL TARTRATE Inactive VALIUM 5 MG TAB Take 1-2 tablets daily VALIUM 5 MG TAB 402291 DIAZEPAM Inactive FLAGYL 500 MG TAB 1 tablet by mouth bid FLAGYL 500 MG TAB 933009 METRONIDAZOLE Inactive DICLOFENAC POTASSIUM TABS Take 1 tablet twice a day (pt. is not sure of the dose.) DICLOFENAC POTASSIUM TABS DICLOFENAC POTASSIUM TABS Inactive ZITHROMAX Z-EARNEST 250 MG TABS 2 today and then 1 daily for 4 days ZITHROMAX Z-EARNEST 250 MG TABS 6036599 AZITHROMYCIN Inactive PREDNISONE 20 MG TABS 2 daily for 5 days then 1 daily for 5 days PREDNISONE 20 MG TABS 727567 PREDNISONE Inactive PROAIR HFA 108 (90 BASE) MCG/ACT AERS 2 puffs four times a day as needed 2015 PROAIR HFA 108 (90 BASE) MCG/ACT AERS ALBUTEROL SULFATE Inactive HYDROCODONE-ACETAMINOPHEN 5-325 MG TABS 1 to 2 four times a day as needed for pain use until can be seen by specialist HYDROCODONE- ACETAMINOPHEN 5-325 MG TABS 962667 HYDROCODONE-ACETAMINOPHEN Inactive TESSALON PERLES 100 MG CAP 1 to 2 tablets by mouth 3 times daily as needed for cough TESSALON PERLES 100 MG CAP 147865 BENZONATATE Inactive CHANTIX STARTING MONTH EARNEST 0.5 [...] twice a day CEFDINIR 300 MG CAPS 220993 CEFDINIR Inactive PREDNISONE 20 MG TAB 2 tabs daily for 3 days, 1 tab daily for 3 days, 1/2 tab daily for 2 days PREDNISONE 20 MG TAB 947007 PREDNISONE Inactive BACTRIM DS 800-160 MG TABS [...] x 10 days KEFLEX 500 MG CAP 856970 CEPHALEXIN Inactive Advance Directives Directive Description Start [...] % 11.6-14.8 platelet count 394 10^3/MM^3 10*3/mm3 551-898 7885/01/11 leukocyte count, blood 13.8 10^3/MM^3 10*3/mm3 4.6-10.2 [...] Panel - Chemistry sodium, serum 139 mmol/L 103-519 9987/12/03 carbon dioxide, venous blood 28.5 mmol/L 21.0-32.0 [...] 5.5 % 4.3-6.0 cholesterol, serum 159 mg/dL 535-022 6834/12/03 triglyceride, serum, fasting 118 mg/dL 30-200 HDL [...] 362 10^3/MM^3 10*3/mm3 142-424 Lab Report: Chlamydia/GC APTIMA/[id number] - Lab chlamydia DNA probe NOT DETECTED NOT DETECTED Lab Report: Chlamydia/GC [facility]TIMA/[id number] - Microbiology Neisseria gonorrhoeae DNA probe NOT DETECTED NOT DETECTED Lab Report: Comp. Metabolic Panel - Chemistry sodium, serum 140 mmol/L 151-371 4736/08/08 carbon dioxide, venous blood 33.7 mmol/L 21.0-32.0 potassium, serum 5.0 mmol/L 3.5-5.2 chloride, serum 103 mmol/L 98-107 blood glucose 80 mg/dL 65-110 urea nitrogen, blood 13 mg/dL 7-18 creatinine, serum 0.88 mg/dL 0.55-1.30 alanine aminotransferase (SGPT), serum 54 U/L -78 aspartate aminotransferase (SGOT), serum 29 U/L 15-37 calcium, serum 9.7 mg/dL 8.5-10.1 bilirubin, serum, total 0.30 mg/dL 0.00-1.00 sodium, serum 139 mmol/L 862-031 0118/12/22 carbon dioxide, venous blood 26.8 mmol/L 21.0-32.0 potassium, serum 4.2 mmol/L 3.5-5.2 chloride, serum 103 mmol/L 98-107 blood glucose 115 mg/dL 65-110 urea nitrogen, blood 20 mg/dL 7-18 creatinine, serum 0.90 mg/dL 0.55-1.30 alanine aminotransferase (SGPT), serum 38 U/L aspartate aminotransferase (SGOT), serum 19 U/L 15-37 calcium, serum 8.6 mg/dL 8.5-10.1 bilirubin, serum, total 0.30 mg/dL 0.00-1.00 sodium, serum 139 mmol/L 034-630 3285/01/11 carbon dioxide, venous blood 26.6 mmol/L 21.0-32.0 potassium, serum 4.1 mmol/L 3.5-5.2 chloride, serum 100 mmol/L 98-107 blood glucose 86 mg/dL 65-110 urea nitrogen, blood 16 mg/dL 7-18 creatinine, serum 1.00 mg/dL 0.55-1.30 alanine aminotransferase (SGPT), serum 48 U/L -78 aspartate aminotransferase (SGOT), serum 17 U/L 15-37 calcium, serum 9.1 mg/dL 8.5-10.1 bilirubin, serum, total 0.40 mg/dL 0.00-1.00 sodium, serum 142 mmol/L 325-073 3769/06/08 carbon dioxide, venous blood 27.6 mmol/L 21.0-32.0 [...] Rate - Chemistry sodium, serum 139 mmol/L 493-432 6528/12/11 carbon dioxide, venous blood 25.4 mmol/L 21.0-32.0 [...] mg/dL Encounters Code Encounter Date Provider Facility CPT-95471 Level 3 Est. Patient 13:59:59 CDT Luigi Martínez [facility] CPT-27821 Level 3 Est. Patient 18:18:53 CDT Neeraj Collins MD [facility] CPT-31136 Level 3 Est. Patient 15:50:44 CDT Vishal Hui MD [facility] CPT-83785 Level 3 Est. Patient 11:36:17 CDT Ahmet Carbajal MD [facility] CPT-16991 Level 3 Est. Patient 13:29:16 CDT Vishal Hui MD [facility] CPT-46390 Level 3 Est. Patient 14:27:52 CDT Neeraj Collins MD [facility] CPT-21205 Level 3 Est. Patient 08:56:03 CDT Luigi Martínez [facility] CPT-16427 Level 4 Est. Patient 12:11:48 CDT Fabiola Johnson [facility] CPT-20960 Level 3 New Patient 16:53:37 CDT Albert Caldera MD [facility] CPT-00754 Level 3 Est. Patient 11:25:49 CDT Renzo Thornton DO [facility] CPT-14918 Level 3 Est. Patient 15:22:01 CDT Ahmet Carbajal MD [facility] CPT-04525 Level 4 Est. Patient 09:00:51 PRINCIPAL TECHNOLOGIST Vishal Hui MD [facility] CPT-18557 Level 3 Est. Patient 11:37:33 PRINCIPAL TECHNOLOGIST Vishal Hui MD [facility] CPT-55779 Level 3 Est. Patient 08:41:09 PRINCIPAL TECHNOLOGIST Vishal Hui MD [facility] CPT-61742 Level 4 Est. Patient 10:19:35 PRINCIPAL TECHNOLOGIST Vishal Hui MD [facility] CPT-54623 Level 3 Est. Patient 13:35:45 CDT Vishal Hui MD [facility] CPT-18209 Level 4 Est. Patient 10:08:37 CDT Vishal Hui MD [facility] CPT-13247 Level 3 Est. Patient 11:22:10 CDT Vishal Hui MD [facility] CPT-66852 Level 3 Est. Patient 11:03:32 CDT Sahara Rodriguez MD [facility]-63132 Level 3 Est. Patient 09:41:35 CDT Vishal Hui MD [facility] CPT-09288 Level 3 Est. Patient 12:00:41 CDT Neeraj Collins MD [facility]-75171 Level 3 Est. Patient 09:16:24 CDT Vishal Hui MD [facility] CPT-58115 Level 4 Est. Patient 13:59:09 CDT Neeraj Collins MD [facility] CPT-96606 Level 3 Est. Patient 15:19:43 CDT Renzo Thornton DO [facility] CPT-50781 Level 3 Est. Patient 18:10:26 CDT Sahara Rodriguez MD [facility] CPT-46390 Level 3 Est. Patient 14:49:50 CDT Vishal Hui MD [facility] CPT-92900 Level 4 Est. Patient 18:41:46 CDT Neeraj Collins MD [facility] CPT-36365 Level 4 Est. Patient 09:18:38 PRINCIPAL TECHNOLOGIST Vishal Hui MD [facility]-59786 Level 3 Est. Patient 14:43:55 PRINCIPAL TECHNOLOGIST Vishal Hui MD [facility] CPT-37426 Level 3 Est. Patient 15:26:33 PRINCIPAL TECHNOLOGIST Sahara Rodriguez MD PhD [facility]-08068 Level 3 Est. Patient 10:32:14 PRINCIPAL TECHNOLOGIST Vishal Hui MD [facility] CPT-71023 Level 3 Est. Patient 15:12:52 PRINCIPAL TECHNOLOGIST Vishal Hui MD [facility] CPT-98510 Level 4 Est. Patient 09:19:27 CDT Vishal Hui MD [facility] CPT-94853 Level 3 Est. Patient 15:53:00 CDT Renzo Thornton [facility] CPT-89735 Level 3 Est. Patient 15:50:30 CDT Renzo Thornton [facility] CPT-03093 Level 3 Est. Patient 16:55:24 CDT Vishal Hui MD [facility] Procedures Code Procedure Name Date Entry Date Standard Description CPT-37475 Nexplanon Removal with Reinsertion 14:09:32 CDT CPT-J7307 Nexplanon (Implant) 14:09:32 CDT CPT-OV Office Visit 14:09:32 CDT CPT-16990 UA w micro - LAB USE ONLY 16:21:13 CDT CPT-32805 Wet Mount - LAB USE ONLY 16:21:13 CDT CPT-62088 First Vx - Ix admin for Medicare patients 14:37:47 CDT CPT-54815 Fluzone Preservative Free Intramuscular Suspension 14:37 :47 CDT CPT-13982 Abx/Therapy Injection 13:54:22 CDT CPT-95999 Abx/Therapy Injection 08:47:09 CDT CPT-94435 Abx/Therapy Injection 13:29:56 CDT CPT-42648 Abx/Therapy Injection 08:36:16 CDT CPT-68247 Wet Mount - LAB USE ONLY 17:44:58 CDT CPT-25118 UA w micro - LAB USE ONLY 17:44:58 CDT CPT-07073 CMP - LAB USE ONLY 17:44:58 CDT CPT-48996 Venipuncture Draw Fee 17:44:58 CDT CPT-80127 Cervical Min 4V - XRAY USE ONLY 09:01:40 CDT CPT-64011 Chest 2V Frontal and Lat - XRAY USE ONLY 11:06:31 CDT CPT-32577 EKG Trac and Interp - XRAY USE ONLY 11:31:43 CDT 08/26 CPT-J3420 Vitamin B12 1000mcg (Cyanocobalamin) 08:10:26 PRINCIPAL TECHNOLOGIST 04/12 CPT-74945 Abx/Therapy Injection 08:10:26 PRINCIPAL TECHNOLOGIST CPT-G0438 Initial Annual Wellness Exam 19:01:01 PRINCIPAL TECHNOLOGIST CPT-J3420 Vitamin B12 1000mcg (Cyanocobalamin) 16:57:46 CDT 08/14 CPT-81989 Recombivax HB Injection Suspension 5 MCG/0.5ML 08:37:50 PRINCIPAL TECHNOLOGIST CPT-53330 Immunization Single Admin 08:37:50 PRINCIPAL TECHNOLOGIST CPT-J3420 Vitamin B12 1000mcg (Cyanocobalamin) 08:32:16 PRINCIPAL TECHNOLOGIST 03/11 CPT-74136 Abx/Therapy Injection 08:32:16 PRINCIPAL TECHNOLOGIST CPT-96234 Chest 2V Frontal and Lat 11:46:38 PRINCIPAL TECHNOLOGIST CPT-21171 Venipuncture Draw Fee 09:12:45 PRINCIPAL TECHNOLOGIST CPT-J3420 Vitamin B12 1000mcg (Cyanocobalamin) 08:50:15 PRINCIPAL TECHNOLOGIST 02/08 CPT-95221 Abx/Therapy Injection 08:50:15 PRINCIPAL TECHNOLOGIST CPT-Cryo Cryotherapy 10:19:35 PRINCIPAL TECHNOLOGIST CPT-000 Give Appropriate Flu Vaccine 09:22:16 CDT CPT-J3420 Vitamin B12 1000mcg (Cyanocobalamin) 19:08:57 CDT 01/11 CPT-29885 Abx/Therapy Injection 19:08:57 CDT CPT-J3420 Vitamin B12 1000mcg (Cyanocobalamin) 08:19:08 CDT 12/11 CPT-13486 Abx/Therapy Injection 08:19:08 CDT CPT-J3420 Vitamin B12 1000mcg (Cyanocobalamin) 14:48:00 CDT 11/09 CPT-50916 Abx/Therapy Injection 14:47:59 CDT CPT-J3420 Vitamin B12 1000mcg (Cyanocobalamin) 08:34:04 CDT 10/09 CPT-04291 Abx/Therapy Injection 08:34:04 CDT CPT-J3420 Vitamin B12 1000mcg (Cyanocobalamin) 09:18:52 CDT 09/11 CPT-91202 Abx/Therapy Injection 09:18:52 CDT CPT-J3420 Vitamin B12 1000mcg (Cyanocobalamin) 08:35:44 CDT 09/04 CPT-72717 Abx/Therapy Injection 08:35:44 CDT CPT-98531 Immunization Single Admin 11:07:16 CDT CPT-09940 Hepatitis B adult IM 11:07:16 CDT CPT-J3420 Vitamin B12 1000mcg (Cyanocobalamin) 11:00:49 CDT 08/28 CPT-J1040 Depo Medrol 80 mg (Methyl Prednisolone Acetate) 11:00: 49 CDT CPT-15680 Abx/Therapy Injection 11:00:49 CDT CPT-J1040 Depo Medrol 80 mg (Methyl Prednisolone Acetate) 09:16: 23 CDT CPT-J3420 Vitamin B12 1000mcg (Cyanocobalamin) 08:27:05 CDT 08/20 CPT-14218 Abx/Therapy Injection 08:27:05 CDT CPT-73973 Recombivax HB Injection Suspension 5 MCG/0.5ML 10:00:41 CDT CPT-02249 Administration single or combination vaccine inc oral 10 :00:41 CDT CPT-69291 Sono transvag pelvis non OB uterus ovaries cervix 16:36: 57 CDT CPT-01568 LS spine comp w obliq 09:50:55 PRINCIPAL TECHNOLOGIST CPT-11775 Abd compl w upright 09:50:55 PRINCIPAL TECHNOLOGIST CPT-J1100 Decadron 4mg (Dexamethasone) 15:51:24 PRINCIPAL TECHNOLOGIST CPT-J1030 Depo Medrol 40 mg (Methyl Prednisolone Acetate) 15:51: 24 PRINCIPAL TECHNOLOGIST CPT-49127 Abx/Therapy Injection 15:51:24 PRINCIPAL TECHNOLOGIST CPT-J1100 Decadron 4mg (Dexamethasone) 15:26:33 PRINCIPAL TECHNOLOGIST CPT-J1030 Depo Medrol 40 mg (Methyl Prednisolone Acetate) 15:26: 33 PRINCIPAL TECHNOLOGIST CPT-76252 Sono retroperitoneal complete kidneys and bladder 17:15: 30 CDT CPT-39372 Abd compl w upright 16:09:25 CDT CPT-J1100 Decadron 8mg (Dexamethasone) 17:07:57 CDT CPT-65081 Abx/Therapy Injection 17:07:57 CDT CPT-J1100 Decadron 8mg (Dexamethasone) 16:55:24 CDT CPT-77235 Chest 2V Frontal and Lat 16:32:44 CDT
--- OUTSIDE RECORDS SUMMARY | 2016-11-04 16:14 | XMS REPORT | Clinical Summary ---
Author Author Admin, E Organization [employer] Address Unknown Phone Unavailable Allergies, Adverse Reactions, [...] TAB 1 tablet by mouth daily FLUCONAZOLE 00797252308 Active Neeraj Collins MD Active TIZANIDINE HCL 4 MG TABS 1 po q6hr PRN Muscle Spasm/Back Pain TIZANIDINE HCL 55568368713 Active Vishal Hui MD Active CLINDAMYCIN HCL 150 MG CAPS 1 four times a day CLINDAMYCIN HCL 61967613265 No Longer Active Neeraj Collins MD Active KEFLEX 500 MG ORAL CAPS 1 cap QID by mouth CEPHALEXIN 79029438428 No Longer Active Neeraj Collins MD Active DIFLUCAN 150 MG TABS 1 pill every other day x 2 doses FLUCONAZOLE 89467352310 No Longer Active Sahara Rodriguez MD PhD Active MELATONIN 3 MG CAPS 2 po q hs MELATONIN 10714723591 No Longer Active Sahara Rodriguez MD PhD Active MULTIVITAMINS CAPS Take one by mouth daily MULTIPLE VITAMIN 89937916255 No Longer Active Sahara Rodriguez MD PhD Active BACTRIM DS 800-160 MG TAB 1 tab by mouth twice daily TRIMETHOPRIM-SULFAMETHOXAZOLE 34675156492 No Longer Active Sahara Rodriguez MD PhD Active [facility] PROBIOTIC ORAL CHEW 2 daily po PROBIOTIC PRODUCT 07957786652 No Longer Active Sahara Rodriguez MD PhD Active IBUPROFEN 600 MG TAB 1 po TID PRN IBUPROFEN 66321734645 Active Luigi Martínez MICROELECTRONICS ASSEMBLER Active BACTRIM DS 800-160 MG TABS 1 po BID x 7 days SULFAMETHOXAZOLE-TRIMETHOPRIM 35056601765 No Longer Active Vishal Hui MD Active CHANTIX STARTING MONTH EARNEST 0.5 MG X 11 & 1 MG X 42 TABS 0.5mg daily for 3 days , then 0.5mg BID for 4 days, then 1mg BID VARENICLINE TARTRATE 60822054869 No Longer Active TAMARA Gray Active METOPROLOL TARTRATE 50 MG TAB 1 po bid METOPROLOL TARTRATE 92706719954 Active Vishal Hui MD Active TRAZODONE HCL 100 MG TAB take 1 at bedtime TRAZODONE HCL 66015095623 Active Vishal Hui MD Active AMLODIPINE BESYLATE 5 MG TABS 1 tablet by mouth daily AMLODIPINE BESYLATE 20741221558 Active Vishal Hui MD Active VERAPAMIL HCL CR 120 MG TAB CR 1 po bid VERAPAMIL HCL 20056825615 No Longer Active Vishal Hui MD Active METOPROLOL SUCCINATE 50 MG TB24 1 tablet by mouth daily METOPROLOL SUCCINATE 50644215820 No Longer Active Vishal Hui MD Active TRAMADOL HCL 50 MG TABS 1-2 po TID PRN Pain TRAMADOL HCL 11429297474 Active Ahmet Carbajal MD Active SAPHRIS 5 MG SUBL 1 po bid ASENAPINE MALEATE 84487512178 Active Vishal Hui MD Active SAPHRIS 10 MG SUBL 1 tab po bid ASENAPINE MALEATE 41333718659 No Longer Active Vishal Hui MD Active LISINOPRIL 20 MG TABS 1 tab po qd LISINOPRIL 67815094464 No Longer Active Vishal Hui MD Active BENADRYL 25 MG CAP 2 po tid prn anxiety DIPHENHYDRAMINE HCL 99108734260 Active Vishal Hui MD Active LATUDA 80 MG TABS Take one by mouth daily LURASIDONE HCL 74079642807 Active Vishal Hui MD Active LATUDA 20 MG TABS Take one by mouth daily LURASIDONE HCL 64240428545 No Longer Active Vishal Hui MD Active TRAZODONE HCL 50 MG TABS 1/2 tab po qd prn for anxiety TRAZODONE HCL 97827881250 No Longer Active Vishal Hui MD Active PIROXICAM 20 MG CAPS 1 cap po qd PRN Pain PIROXICAM 72102515300 Active Vishal Hui MD Active OMEPRAZOLE 20 MG TBEC 1 po q a.m. 30min prior to first food intake OMEPRAZOLE 69992749685 Active Vishal Hui MD Active RANITIDINE HCL 150 MG CAPS 1 twice a day RANITIDINE HCL 31629129473 Active Vishal Hui MD Active PROZAC 20 MG CAP Take one by mouth daily FLUOXETINE HCL 40360574671 Active Vishal Hui MD Active LINZESS 290 MCG CAPS Take one by mouth daily LINACLOTIDE 04138432372 Active Vishal Hui MD Active SAPHRIS 5 MG SUBL 1 tab po qd ASENAPINE MALEATE 22981043013 No Longer Active Vishal Hui MD Active ZALEPLON 10 MG CAPS 1 cap po every other night ZALEPLON 56697536187 No Longer Active Vishal Hui MD Active LYRICA 50 MG CAPS 1 tab po TID PREGABALIN 64973221534 No Longer Active Vishal Hui MD Active LORATADINE 10 MG TABS 1 tab po qd LORATADINE 00748963448 No Longer Active Vishal Hui MD Active VERAPAMIL HCL ER 180 MG CR-TABS 1 tab po bid VERAPAMIL HCL 71879157927 No Longer Active Vishal Hui MD Active MIRALAX POWD 1 capfull once daily POLYETHYLENE GLYCOL 3350 97259792665 No Longer Active Vishal Hui MD Active PREDNISONE 20 MG TABS 1 tab po qd PREDNISONE 58609407782 No Longer Active Renzo Thornton DO Active LEVOFLOXACIN 500 MG TABS 1 tab po qd LEVOFLOXACIN 24642471283 No Longer Active Renzo Thornton DO Active BUSPIRONE HCL 15 MG TABS 1 tab po TID BUSPIRONE HCL 70646429247 No Longer Active Renzo Thornton DO Active BENZTROPINE MESYLATE 1 MG TABS 1 tab po qd BENZTROPINE MESYLATE 61172500410 No Longer Active Renzo Thornton DO Active ATENOLOL 25 MG TABS 1 tab po qd ATENOLOL 38244610127 No Longer Active Renzo Thornton DO Active ESCITALOPRAM OXALATE 20 MG TABS 1 tab po qd ESCITALOPRAM OXALATE 93567078597 No Longer Active Renzo Thornton DO Active ADVAIR DISKUS 250-50 MCG/DOSE AEPB 1 puff BID FLUTICASONE-SALMETEROL 23078906127 No Longer Active Renzo Thornton DO Active PREDNISONE 20 MG TAB 2 tabs daily for 3 days, 1 tab daily for 3 days, 1/2 tab daily for 2 days PREDNISONE 39666371723 No Longer Active Vishal Hui MD Active CEFDINIR 300 MG CAPS by mouth twice a day CEFDINIR 11273822977 No Longer Active Vishal Hui MD Active LANSOPRAZOLE 30 MG CPDR 1 cap po qd LANSOPRAZOLE 58315358184 No Longer Active Vishal Hui MD Active TOPAMAX 25 MG TABS 1 tab po bid TOPIRAMATE 30044671359 Active Vishal Hui MD Active MINIPRESS 2 MG CAPS 1 cap po at night PRAZOSIN HCL 40499214952 Active Vishal Hui MD Active BACLOFEN 20 MG TABS 1 tab po tid BACLOFEN 90879212430 No Longer Active Vishal Hui MD Active ADVAIR DISKUS 250-50 MCG/DOSE AEPB 1 puff BID ADVAIR DISKUS 250-50 MCG/DOSE AEPB FLUTICASONE-SALMETEROL Inactive ESCITALOPRAM OXALATE 20 MG TABS 1 tab po qd ESCITALOPRAM OXALATE 20 MG TABS 350753 ESCITALOPRAM OXALATE Inactive ATENOLOL 25 MG TABS 1 tab po qd ATENOLOL 25 MG TABS 173999 ATENOLOL Inactive BENZTROPINE MESYLATE 1 MG TABS 1 tab po qd BENZTROPINE MESYLATE 1 MG TABS 337010 BENZTROPINE MESYLATE Inactive BUSPIRONE HCL 15 MG TABS 1 tab po TID BUSPIRONE HCL 15 MG TABS 162285 BUSPIRONE HCL Inactive LEVOFLOXACIN 500 MG TABS 1 tab po qd LEVOFLOXACIN 500 MG TABS 922004 LEVOFLOXACIN Inactive PREDNISONE 20 MG TABS 1 tab po qd PREDNISONE 20 MG TABS 357030 PREDNISONE Inactive MIRALAX POWD 1 capfull once daily MIRALAX POWD 434951 POLYETHYLENE GLYCOL 3350 Inactive VERAPAMIL HCL ER 180 MG CR-TABS 1 tab po bid VERAPAMIL HCL ER 180 MG CR-TABS VERAPAMIL HCL Inactive LORATADINE 10 MG TABS 1 tab po qd LORATADINE 10 MG TABS 278259 LORATADINE Inactive LYRICA 50 MG CAPS 1 tab po TID LYRICA 50 MG CAPS PREGABALIN Inactive ZALEPLON 10 MG CAPS 1 cap po every other night ZALEPLON 10 MG CAPS 494471 ZALEPLON Inactive SAPHRIS 5 MG SUBL 1 tab po qd SAPHRIS 5 MG SUBL ASENAPINE MALEATE Inactive TRAZODONE HCL 50 MG TABS 1/2 tab po qd prn for anxiety TRAZODONE HCL 50 MG TABS 934416 TRAZODONE HCL Inactive LATUDA 20 MG TABS Take one by mouth daily LATUDA 20 MG TABS LURASIDONE HCL Inactive LISINOPRIL 20 MG TABS 1 tab po qd LISINOPRIL 20 MG TABS 219324 LISINOPRIL Inactive SAPHRIS 10 MG SUBL 1 [...] po q hs MELATONIN 3 MG CAPS 928142 MELATONIN Inactive KEFLEX 500 MG ORAL CAPS 1 cap QID by mouth KEFLEX 500 MG ORAL CAPS 353945 CEPHALEXIN Inactive CLINDAMYCIN HCL 150 MG CAPS 1 four times a day CLINDAMYCIN HCL 150 MG CAPS 196882 CLINDAMYCIN HCL Inactive CEFDINIR 300 MG CAPS by mouth twice a day CEFDINIR 300 MG CAPS 197161 CEFDINIR Inactive PREDNISONE 20 MG TAB 2 tabs daily for 3 days, 1 tab daily for 3 days, 1/2 tab daily for 2 days PREDNISONE 20 MG TAB 899807 PREDNISONE Inactive BACTRIM DS 800-160 MG TABS 1 po BID x 7 days BACTRIM DS 800-160 MG TABS SULFAMETHOXAZOLE-TRIMETHOPRIM Inactive DIFLUCAN 150 MG TABS 1 pill every other day x 2 doses DIFLUCAN 150 MG TABS 297424 FLUCONAZOLE Inactive Vital Signs Date Name Value [...] ... - Chemistry sodium, serum 140 mmol/L 064-465 5611/05/28 potassium, serum 4.2 mmol/L 3.5-5.2 chloride, serum [...] Panel - Chemistry sodium, serum 141 mmol/L 489-996 2206 potassium, serum 4.3 mmol/L 3.5-5.2 chloride, serum [...] Panel - Chemistry sodium, serum 139 mmol/L 168-742 7002/12/31 potassium, serum 4.8 mmol/L 3.5-5.2 chloride, serum 106 mmol/L 98-107 carbon dioxide, venous blood 24.3 mmol/L 21.0-32.0 blood glucose 90 mg/dL 65-110 urea nitrogen, blood 16 mg/dL 7-18 creatinine, serum 1.00 mg/dL 0.60-1.30 alanine aminotransferase (SGPT), serum 41 U/L -78 aspartate aminotransferase (SGOT), serum 17 U/L 15-37 calcium, serum 8.6 mg/dL 8.5-10.1 bilirubin, serum, total 0.30 mg/dL 0.00-1.00 cholesterol, serum 108 mg/dL 695-988 5002/12/31 triglyceride, serum, fasting 120 mg/dL 30-200 HDL [...] Negative Lab Report: UADIP W/MICRO, AUTO, [facility] [place] - Urinalysis urobilinogen, urine, semiquantitative (dipstick) 0.2 Normal leukocyte esterase, urine, by dipstick Negative Negative nitrite, urine, semiquantitative Negative Negative glucose, urine, semiquantitative Negative Negative ketones, urine, by test strip Negative Negative bilirubin, urine Negative Negative urine color Yellow Colorless;Lightyellow;Straw;Yellow appearance, urine Clear Clear specific gravity, urine 1.025 1.000-1.030 pH, urine, semiquantitative 7.0 5.0-8.5 Lab Report: Varicella-Zoater Inga IgG,IgM/03374, HEP Be Antibody/556, RUB ... - Serology rubella antibody, serum, IgG 2.88 Encounters Code Encounter Date Provider Facility CPT-00515 Level 3 Est. Patient 12:00:41 CDT Neeraj Collins MD [facility] CPT-16701 Level 3 Est. Patient 09:16:24 CDT Vishal Hui MD [facility] CPT-80046 Level 4 Est. Patient 13:59:09 CDT Neeraj Collins MD [facility] CPT-08006 Level 3 Est. Patient 15:19:43 CDT Renzo Thornton DO [facility] CPT-88011 Level 3 Est. Patient 18:10:26 CDT Sahara Rodriguez MD [facility] CPT-12853 Level 3 Est. Patient 14:49:50 CDT Vishal Hui MD [facility] CPT-14625 Level 4 Est. Patient 18:41:46 CDT Neeraj Collins MD [facility] CPT-38673 Level 4 Est. Patient 09:18:38 FITTER TACKER Vishal Hui MD [facility] CPT-28601 Level 3 Est. Patient 14:43:55 FITTER TACKER Vishal Hui MD [facility] CPT-20458 Level 3 Est. Patient 15:26:33 FITTER TACKER Sahara Rodriguez MD PhD [facility] CPT-44329 Level 3 Est. Patient 10:32:14 FITTER TACKER Vishal Hui MD [facility] CPT-56571 Level 3 Est. Patient 15:12:52 FITTER TACKER Vishal Hui MD [facility] CPT-54769 Level 4 Est. Patient 09:19:27 CDT Vishal Hui MD [facility] CPT-08960 Level 3 Est. Patient 15:53:00 CDT Renzo Thornton [facility] CPT-31352 Level 3 Est. Patient 15:50:30 CDT Renzo Thornton [facility] CPT-25282 Level 3 Est. Patient 16:55:24 CDT Vishal Hui MD [facility] Procedures Code Procedure Name Date Entry Date Standard Description CPT-J3420 Vitamin B12 1000mcg (Cyanocobalamin) 09:18:52 CDT 09/11 CPT-72967 Abx/Therapy Injection 09:18:52 CDT CPT-J3420 Vitamin B12 1000mcg (Cyanocobalamin) 08:35:44 CDT 09/04 CPT-80739 Abx/Therapy Injection 08:35:44 CDT CPT-41827 Immunization Single Admin 11:07:16 CDT CPT-76423 Hepatitis B adult IM 11:07:16 CDT CPT-J3420 Vitamin B12 1000mcg (Cyanocobalamin) 11:00:49 CDT 08/28 CPT-J1040 Depo Medrol 80 mg (Methyl Prednisolone Acetate) 11:00: 49 CDT CPT-68601 Abx/Therapy Injection 11:00:49 CDT CPT-J1040 Depo Medrol 80 mg (Methyl Prednisolone Acetate) 09:16: 23 CDT CPT-J3420 Vitamin B12 1000mcg (Cyanocobalamin) 08:27:05 CDT 08/20 CPT-25205 Abx/Therapy Injection 08:27:05 CDT CPT-18666 Recombivax HB Injection Suspension 5 MCG/0.5ML 10:00:41 CDT CPT-11328 Administration single or combination vaccine inc oral 10 :00:41 CDT CPT-93036 Sono transvag pelvis non OB uterus ovaries cervix 16:36: 57 CDT CPT-57606 LS spine comp w obliq 09:50:55 FITTER TACKER CPT-15515 Abd compl w upright 09:50:55 FITTER TACKER CPT-J1100 Decadron 4mg (Dexamethasone) 15:51:24 FITTER TACKER CPT-J1030 Depo Medrol 40 mg (Methyl Prednisolone Acetate) 15:51: 24 FITTER TACKER CPT-69708 Abx/Therapy Injection 15:51:24 FITTER TACKER CPT-J1100 Decadron 4mg (Dexamethasone) 15:26:33 FITTER TACKER CPT-J1030 Depo Medrol 40 mg (Methyl Prednisolone Acetate) 15:26: 33 FITTER TACKER CPT-58371 Sono retroperitoneal complete kidneys and bladder 17:15: 30 CDT CPT-51516 Abd compl w upright 16:09:25 CDT CPT-J1100 Decadron 8mg (Dexamethasone) 17:07:57 CDT CPT-54144 Abx/Therapy Injection 17:07:57 CDT CPT-J1100 Decadron 8mg (Dexamethasone) 16:55:24 CDT CPT-74377 Chest 2V Frontal and Lat 16:32:44 CDT
--- OUTSIDE RECORDS SUMMARY | 2016-11-04 16:15 | XMS REPORT | Clinical Summary ---
Author Author Admin, E Organization [employer] Address Unknown Phone Unavailable Allergies, Adverse Reactions, [...] 1/2 tab daily for 4 days PREDNISONE [id number] Active Vishal Hui MD Active IMITREX 50 MG ORAL TABS 1/2 tab every 6 hours prn SUMATRIPTAN SUCCINATE 64535316430 Active Tataina Mauricio NORIEGA Active AMBIEN 5 MG ORAL TABS 1 tab at bedtime ZOLPIDEM TARTRATE 20941910773 Active Pacollina Mauricio WALTERSN Active PROZAC 20 MG ORAL CAPS 1 tab daily FLUOXETINE HCL 34154179953 Active Jillina Johnl PLANT TOUR GUIDE Active ABILIFY 15 MG ORAL TABS 1 tab daily ARIPIPRAZOLE 38476325246 Active Jillina Johnl PLANT TOUR GUIDE Active MINIPRESS 2 MG CAPS 4 cap po at night PRAZOSIN HCL 48917751659 Active Jillina Frazell PLANT TOUR GUIDE Active TOPAMAX 50 MG ORAL TABS 1 tab twice daily TOPIRAMATE 99530106398 Active Pacollina Mauricio WALTERSN Active SAPHRIS 5 MG SUBL 1 po bid ASENAPINE MALEATE 87192118524 No Longer Active Pacollina Mauricio NORIEGA Active LATUDA 80 MG TABS Take one by mouth daily LURASIDONE HCL 28675819885 No Longer Active Pacollina Mauricio WALTERSN Active AMLODIPINE BESYLATE 5 MG TABS 1 tablet by mouth daily AMLODIPINE BESYLATE 62395517337 No Longer Active Tataina Mauricio NORIEGA Active AMITRIPTYLINE HCL 100 MG TAB one at hs AMITRIPTYLINE HCL 10312675988 No Longer Active Vishal Hui MD Active TRAZODONE HCL 100 MG TAB take 1 at bedtime TRAZODONE HCL 92889736304 No Longer Active Vishal Hui MD Active VYVANSE 40 MG CAPS 1 daily, LISDEXAMFETAMINE DIMESYLATE 98000387978 No Longer Active Vishal Hui MD Active IBUPROFEN 600 MG TAB 1 po TID PRN IBUPROFEN 83225712756 No Longer Active Vishal Hui MD Active MIRALAX PACK 1 po qd PRN Constipation POLYETHYLENE GLYCOL 3350 18683980281 Active Vishal Hui MD Active PROZAC 20 MG CAP Take one by mouth daily FLUOXETINE HCL 63683848687 No Longer Active Vishal Hui MD Active ZOFRAN 4 MG TABS 1 po q6hr PRN Nausea ONDANSETRON HCL Active Vishal Hui MD Active BACTRIM DS 800-160 MG TABS 1 pill by mouth twice daily SULFAMETHOXAZOLE-TRIMETHOPRIM 18414445834 No Longer Active Sahara Rodriguez MD PhD Active DIFLUCAN 150 MG TAB 1 tablet by mouth daily FLUCONAZOLE 43930863854 No Longer Active Vishal Hui MD Active TIZANIDINE HCL 4 MG TABS 1 po q6hr PRN Muscle Spasm/Back Pain TIZANIDINE HCL 90421335918 Active Vishal Hui MD Active CLINDAMYCIN HCL 150 MG CAPS 1 four times a day CLINDAMYCIN HCL 04351300313 No Longer Active Neeraj Collins MD Active KEFLEX 500 MG ORAL CAPS 1 cap QID by mouth CEPHALEXIN 57044683259 No Longer Active Neeraj Collins MD Active DIFLUCAN 150 MG TABS 1 pill every other day x 2 doses FLUCONAZOLE 09093389691 No Longer Active Sahara Rodriguez MD PhD Active MELATONIN 3 MG CAPS 2 po q hs MELATONIN 45711339774 No Longer Active Sahara Rodriguez MD PhD Active MULTIVITAMINS CAPS Take one by mouth daily MULTIPLE VITAMIN 83903469343 No Longer Active Sahara Rodriguez MD PhD Active BACTRIM DS 800-160 MG TAB 1 tab by mouth twice daily TRIMETHOPRIM-SULFAMETHOXAZOLE 87886204596 No Longer Active Sahara Rodriguez MD PhD Active [facility] PROBIOTIC ORAL CHEW 2 daily po PROBIOTIC PRODUCT 49273172354 No Longer Active Sahara Rodriguez MD PhD Active BACTRIM DS 800-160 MG TABS 1 po BID x 7 days SULFAMETHOXAZOLE-TRIMETHOPRIM 93585494341 No Longer Active Vishal Hui MD Active CHANTIX STARTING MONTH EARNEST 0.5 MG X 11 & 1 MG X 42 TABS 0.5mg daily for 3 days , then 0.5mg BID for 4 days, then 1mg BID VARENICLINE TARTRATE 91916301672 No Longer Active TAMARA Gray Active METOPROLOL TARTRATE 50 MG TAB 1 po bid METOPROLOL TARTRATE 69914938561 Active Vishal Hui MD Active VERAPAMIL HCL CR 120 MG TAB CR 1 po bid VERAPAMIL HCL 63464754227 No Longer Active Vishal Hui MD Active METOPROLOL SUCCINATE 50 MG TB24 1 tablet by mouth daily METOPROLOL SUCCINATE 56746809847 No Longer Active Vishal Hui MD Active TRAMADOL HCL 50 MG TABS 1-2 po TID PRN Pain TRAMADOL HCL 43718117950 Active Vishal Hui MD Active SAPHRIS 10 MG SUBL 1 tab po bid ASENAPINE MALEATE 06610775344 No Longer Active Vishal Hui MD Active LISINOPRIL 20 MG TABS 1 tab po qd LISINOPRIL 75326572966 No Longer Active Vishal Hui MD Active BENADRYL 25 MG CAP 2 po tid prn anxiety DIPHENHYDRAMINE HCL 96758257208 Active Vishal Hui MD Active LATUDA 20 MG TABS Take one by mouth daily LURASIDONE HCL 52155278845 No Longer Active Vishal Hui MD Active TRAZODONE HCL 50 MG TABS 1/2 tab po qd prn for anxiety TRAZODONE HCL 15598182246 No Longer Active Vishal Hui MD Active PIROXICAM 20 MG CAPS 1 cap po qd PRN Pain PIROXICAM 47810415922 Active Vishal Hui MD Active OMEPRAZOLE 20 MG TBEC 1 po q a.m. 30min prior to first food intake OMEPRAZOLE 04327502552 Active Vishal Hui MD Active RANITIDINE HCL 150 MG CAPS 1 twice a day RANITIDINE HCL 65461967716 Active Vishal Hui MD Active LINZESS 290 MCG CAPS Take one by mouth daily LINACLOTIDE 34236844494 No Longer Active Vishal Hui MD Active SAPHRIS 5 MG SUBL 1 tab po qd ASENAPINE MALEATE 70618320497 No Longer Active Vishal Hui MD Active ZALEPLON 10 MG CAPS 1 cap po every other night ZALEPLON 19238283890 No Longer Active Vishal Hui MD Active LYRICA 50 MG CAPS 1 tab po TID PREGABALIN 08953453787 No Longer Active Vishal Hui MD Active LORATADINE 10 MG TABS 1 tab po qd LORATADINE 39220297149 No Longer Active Vishal Hui MD Active VERAPAMIL HCL ER 180 MG CR-TABS 1 tab po bid VERAPAMIL HCL 78145629640 No Longer Active Vishal Hui MD Active MIRALAX POWD 1 capfull once daily POLYETHYLENE GLYCOL 3350 80897210407 No Longer Active Vishal Hui MD Active PREDNISONE 20 MG TABS 1 tab po qd PREDNISONE 79381384236 No Longer Active Renzo Thornton DO Active LEVOFLOXACIN 500 MG TABS 1 tab po qd LEVOFLOXACIN 78829220906 No Longer Active Renzo Thornton DO Active BUSPIRONE HCL 15 MG TABS 1 tab po TID BUSPIRONE HCL 04970911769 No Longer Active Renzo Thornton DO Active BENZTROPINE MESYLATE 1 MG TABS 1 tab po qd BENZTROPINE MESYLATE 46465565050 No Longer Active Renzo Thornton DO Active ATENOLOL 25 MG TABS 1 tab po qd ATENOLOL 57222883352 No Longer Active Renzo Thornton DO Active ESCITALOPRAM OXALATE 20 MG TABS 1 tab po qd ESCITALOPRAM OXALATE 60808720991 No Longer Active Renzo Thornton DO Active ADVAIR DISKUS 250-50 MCG/DOSE AEPB 1 puff BID FLUTICASONE-SALMETEROL 49765703385 No Longer Active Renzo Thornton DO Active PREDNISONE 20 MG TAB 2 tabs daily for 3 days, 1 tab daily for 3 days, 1/2 tab daily for 2 days PREDNISONE 48223418602 No Longer Active Vishal Hui MD Active CEFDINIR 300 MG CAPS by mouth twice a day CEFDINIR 19059418505 No Longer Active Vishal Hui MD Active LANSOPRAZOLE 30 MG CPDR 1 cap po qd LANSOPRAZOLE 95397738245 No Longer Active Vishal Hui MD Active BACLOFEN 20 MG TABS 1 tab po tid BACLOFEN 85598440226 No Longer Active Vishal Hui MD Active ADVAIR DISKUS 250-50 MCG/DOSE AEPB 1 puff BID ADVAIR DISKUS 250-50 MCG/DOSE AEPB FLUTICASONE-SALMETEROL Inactive ESCITALOPRAM OXALATE 20 MG TABS 1 tab po qd ESCITALOPRAM OXALATE 20 MG TABS 945441 ESCITALOPRAM OXALATE Inactive ATENOLOL 25 MG TABS 1 tab po qd ATENOLOL 25 MG TABS 512379 ATENOLOL Inactive BENZTROPINE MESYLATE 1 MG TABS 1 tab po qd BENZTROPINE MESYLATE 1 MG TABS 338716 BENZTROPINE MESYLATE Inactive BUSPIRONE HCL 15 MG TABS 1 tab po TID BUSPIRONE HCL 15 MG TABS 057933 BUSPIRONE HCL Inactive LEVOFLOXACIN 500 MG TABS 1 tab po qd LEVOFLOXACIN 500 MG TABS 030139 LEVOFLOXACIN Inactive PREDNISONE 20 MG TABS 1 tab po qd PREDNISONE 20 MG TABS 498570 PREDNISONE Inactive MIRALAX POWD 1 capfull once daily MIRALAX POWD 715166 POLYETHYLENE GLYCOL 3350 Inactive VERAPAMIL HCL ER 180 MG CR-TABS 1 tab po bid VERAPAMIL HCL ER 180 MG CR-TABS VERAPAMIL HCL Inactive LORATADINE 10 MG TABS 1 tab po qd LORATADINE 10 MG TABS 731670 LORATADINE Inactive LYRICA 50 MG CAPS 1 tab po TID LYRICA 50 MG CAPS PREGABALIN Inactive ZALEPLON 10 MG CAPS 1 cap po every other night ZALEPLON 10 MG CAPS 081720 ZALEPLON Inactive SAPHRIS 5 MG SUBL 1 tab po qd SAPHRIS 5 MG SUBL ASENAPINE MALEATE Inactive TRAZODONE HCL 50 MG TABS 1/2 tab po qd prn for anxiety TRAZODONE HCL 50 MG TABS 863992 TRAZODONE HCL Inactive LATUDA 20 MG TABS Take one by mouth daily LATUDA 20 MG TABS LURASIDONE HCL Inactive LISINOPRIL 20 MG TABS 1 tab po qd LISINOPRIL 20 MG TABS 443266 LISINOPRIL Inactive SAPHRIS 10 MG SUBL 1 [...] twice daily BACTRIM DS 800-160 MG TAB 870179 TRIMETHOPRIM-SULFAMETHOXAZOLE Inactive MULTIVITAMINS CAPS Take one by mouth daily MULTIVITAMINS CAPS MULTIPLE VITAMIN Inactive MELATONIN 3 MG CAPS 2 po q hs MELATONIN 3 MG CAPS 431776 MELATONIN Inactive KEFLEX 500 MG ORAL CAPS 1 cap QID by mouth KEFLEX 500 MG ORAL CAPS 791103 CEPHALEXIN Inactive CLINDAMYCIN HCL 150 MG CAPS 1 four times a day CLINDAMYCIN HCL 150 MG CAPS 171485 CLINDAMYCIN HCL Inactive DIFLUCAN 150 MG TAB 1 tablet by mouth daily DIFLUCAN 150 MG TAB 732480 FLUCONAZOLE Inactive PROZAC 20 MG CAP Take one by mouth daily PROZAC 20 MG CAP 608926 FLUOXETINE HCL Inactive IBUPROFEN 600 MG TAB 1 po TID PRN IBUPROFEN 600 MG TAB 568014 IBUPROFEN Inactive VYVANSE 40 MG CAPS 1 daily, VYVANSE 40 MG CAPS LISDEXAMFETAMINE DIMESYLATE Inactive TRAZODONE HCL 100 MG TAB take 1 at bedtime TRAZODONE HCL 100 MG TAB 577262 TRAZODONE HCL Inactive AMITRIPTYLINE HCL 100 MG TAB one at hs AMITRIPTYLINE HCL 100 MG TAB 510143 AMITRIPTYLINE HCL Inactive AMLODIPINE BESYLATE 5 MG TABS 1 tablet by mouth daily AMLODIPINE BESYLATE 5 MG TABS 796781 AMLODIPINE BESYLATE Inactive LATUDA 80 MG TABS Take one by mouth daily LATUDA 80 MG TABS LURASIDONE HCL Inactive SAPHRIS 5 MG SUBL 1 po bid SAPHRIS 5 MG SUBL ASENAPINE MALEATE Inactive CEFDINIR 300 MG CAPS by mouth twice a day CEFDINIR 300 MG CAPS 227967 CEFDINIR Inactive PREDNISONE 20 MG TAB 2 tabs daily for 3 days, 1 tab daily for 3 days, 1/2 tab daily for 2 days PREDNISONE 20 MG TAB 013974 PREDNISONE Inactive BACTRIM DS 800-160 MG TABS 1 po BID x 7 days BACTRIM DS 800-160 MG TABS 19820521 SULFAMETHOXAZOLE-TRIMETHOPRIM Inactive DIFLUCAN 150 MG TABS 1 pill every other day x 2 doses DIFLUCAN 150 MG TABS 867755 FLUCONAZOLE Inactive BACTRIM DS 800-160 MG TABS [...] Panel - Chemistry sodium, serum 139 mmol/L 826-079 6697/12/03 carbon dioxide, venous blood 28.5 mmol/L 21.0-32.0 [...] 5.5 % 4.3-6.0 cholesterol, serum 159 mg/dL 602-913 8320/12/03 triglyceride, serum, fasting 118 mg/dL 30-200 HDL [...] ... - Chemistry sodium, serum 140 mmol/L 475-593 9726/05/28 potassium, serum 4.2 mmol/L 3.5-5.2 chloride, serum [...] Panel - Chemistry sodium, serum 141 mmol/L 123-267 1744 potassium, serum 4.3 mmol/L 3.5-5.2 chloride, serum 106 mmol/L 98-107 carbon dioxide, venous blood 25.7 mmol/L 21.0-32.0 blood glucose 119 mg/dL 65-110 urea nitrogen, blood 22 mg/dL 7-18 creatinine, serum 0.90 mg/dL 0.60-1.30 alanine aminotransferase (SGPT), serum 28 U/L 12-78 aspartate aminotransferase (SGOT), serum 13 U/L 15-37 calcium, serum 8.5 mg/dL 8.5-10.1 bilirubin, serum, total 0.20 mg/dL 0.00-1.00 sodium, serum 139 mmol/L 027-993 3461/12/22 carbon dioxide, venous blood 26.8 mmol/L 21.0-32.0 [...] Rate - Chemistry sodium, serum 139 mmol/L 317-498 6369/12/11 carbon dioxide, venous blood 25.4 mmol/L 21.0-32.0 [...] 5.5 5.0-8.5 Lab Report: [place] [facility] [place] protein, total urine random Negative mg/dL Negative RBC, urine, dipstick Negative Negative human chorionic gonadotropin, urine, qualitative (urine test) Negative Negative Lab Report: [place]ADIP W/MI[place], [place], [facility] [place] Urinalysis urobilinogen, urine, semiquantitative (dipstick) 0.2 Normal leukocyte esterase, urine, by dipstick Negative Negative nitrite, urine, semiquantitative Negative Negative glucose, urine, semiquantitative Negative Negative ketones, urine, by test strip Negative Negative bilirubin, urine Negative Negative urine color Yellow Colorless;Lightyellow;Straw;Yellow appearance, urine Clear Clear specific gravity, urine 1.025 1.000-1.030 pH, urine, semiquantitative 7.0 5.0-8.5 Lab Report: Varicella-Zoater Inga IgG,IgM/37636, HEP Be Antibody/556, RUB ... - Serology rubella antibody, serum, IgG 2.88 Encounters Code Encounter Date Provider Facility CPT-84105 Level 4 Est. Patient 09:00:51 PRACTICE ADMINISTRATOR Vishal Hui MD [facility] CPT-76286 Level 3 Est. Patient 11:37:33 PRACTICE ADMINISTRATOR Vishal Hui MD [facility] CPT-31768 Level 3 Est. Patient 08:41:09 PRACTICE ADMINISTRATOR Vishal Hui MD [facility] CPT-88161 Level 4 Est. Patient 10:19:35 PRACTICE ADMINISTRATOR Vishal Hui MD [facility] CPT-06754 Level 3 Est. Patient 13:35:45 CDT Vishal Hui MD [facility] CPT-44883 Level 4 Est. Patient 10:08:37 CDT Vishal Hui MD [facility] CPT-83363 Level 3 Est. Patient 11:22:10 CDT Vishal Hui MD [facility] CPT-22064 Level 3 Est. Patient 11:03:32 CDT Sahara Rodriguez MD [facility]-08561 Level 3 Est. Patient 09:41:35 CDT Vishal Hui MD [facility] CPT-93728 Level 3 Est. Patient 12:00:41 CDT Neeraj Collins MD [facility] CPT-95799 Level 3 Est. Patient 09:16:24 CDT Vishal Hui MD [facility] CPT-78433 Level 4 Est. Patient 13:59:09 CDT Neeraj Collins MD [facility] CPT-80071 Level 3 Est. Patient 15:19:43 CDT Renzo Thornton DO [facility] CPT-37849 Level 3 Est. Patient 18:10:26 CDT Sahara Rodriguez MD [facility]-11883 Level 3 Est. Patient 14:49:50 CDT Vishal Hui MD [facility] CPT-75413 Level 4 Est. Patient 18:41:46 CDT Neeraj Collins MD [facility]-40087 Level 4 Est. Patient 09:18:38 PRACTICE ADMINISTRATOR Vishal Hui MD [facility] CPT-97568 Level 3 Est. Patient 14:43:55 PRACTICE ADMINISTRATOR Vishal Hui MD [facility] CPT-22039 Level 3 Est. Patient 15:26:33 PRACTICE ADMINISTRATOR Sahara Rodriguez MD PhD [facility] CPT-56757 Level 3 Est. Patient 10:32:14 PRACTICE ADMINISTRATOR Vishal Hui MD [facility] CPT-77193 Level 3 Est. Patient 15:12:52 PRACTICE ADMINISTRATOR Vishal Hui MD [facility] CPT-35121 Level 4 Est. Patient 09:19:27 CDT Vishal Hui MD [facility] CPT-51816 Level 3 Est. Patient 15:53:00 CDT Renzo Thornton [facility] CPT-29262 Level 3 Est. Patient 15:50:30 CDT Renzo Thornton [facility] CPT-56874 Level 3 Est. Patient 16:55:24 CDT Vishal Hui MD [facility] Procedures Code Procedure Name Date Entry Date Standard Description CPT-00851 Recombivax HB Injection Suspension 5 MCG/0.5ML 08:37:50 PRACTICE ADMINISTRATOR CPT-83584 Immunization Single Admin 08:37:50 PRACTICE ADMINISTRATOR CPT-J3420 Vitamin B12 1000mcg (Cyanocobalamin) 08:32:16 PRACTICE ADMINISTRATOR 03/11 CPT-99522 Abx/Therapy Injection 08:32:16 PRACTICE ADMINISTRATOR CPT-46652 Chest 2V Frontal and Lat 11:46:38 PRACTICE ADMINISTRATOR CPT-10738 Venipuncture Draw Fee 09:12:45 PRACTICE ADMINISTRATOR CPT-J3420 Vitamin B12 1000mcg (Cyanocobalamin) 08:50:15 PRACTICE ADMINISTRATOR 02/08 CPT-18256 Abx/Therapy Injection 08:50:15 PRACTICE ADMINISTRATOR CPT-Cryo Cryotherapy 10:19:35 PRACTICE ADMINISTRATOR CPT-000 Give Appropriate Flu Vaccine 09:22:16 CDT CPT-J3420 Vitamin B12 1000mcg (Cyanocobalamin) 19:08:57 CDT 01/11 CPT-92251 Abx/Therapy Injection 19:08:57 CDT CPT-J3420 Vitamin B12 1000mcg (Cyanocobalamin) 08:19:08 CDT 12/11 CPT-46796 Abx/Therapy Injection 08:19:08 CDT CPT-J3420 Vitamin B12 1000mcg (Cyanocobalamin) 14:48:00 CDT 11/09 CPT-38998 Abx/Therapy Injection 14:47:59 CDT CPT-J3420 Vitamin B12 1000mcg (Cyanocobalamin) 08:34:04 CDT 10/09 CPT-38552 Abx/Therapy Injection 08:34:04 CDT CPT-J3420 Vitamin B12 1000mcg (Cyanocobalamin) 09:18:52 CDT 09/11 CPT-08497 Abx/Therapy Injection 09:18:52 CDT CPT-J3420 Vitamin B12 1000mcg (Cyanocobalamin) 08:35:44 CDT 09/04 CPT-41668 Abx/Therapy Injection 08:35:44 CDT CPT-42682 Immunization Single Admin 11:07:16 CDT CPT-93298 Hepatitis B adult IM 11:07:16 CDT CPT-J3420 Vitamin B12 1000mcg (Cyanocobalamin) 11:00:49 CDT 08/28 CPT-J1040 Depo Medrol 80 mg (Methyl Prednisolone Acetate) 11:00: 49 CDT CPT-31798 Abx/Therapy Injection 11:00:49 CDT CPT-J1040 Depo Medrol 80 mg (Methyl Prednisolone Acetate) 09:16: 23 CDT CPT-J3420 Vitamin B12 1000mcg (Cyanocobalamin) 08:27:05 CDT 08/20 CPT-46045 Abx/Therapy Injection 08:27:05 CDT CPT-31190 Recombivax HB Injection Suspension 5 MCG/0.5ML 10:00:41 CDT CPT-07583 Administration single or combination vaccine inc oral 10 :00:41 CDT CPT-14144 Sono transvag pelvis non OB uterus ovaries cervix 16:36: 57 CDT CPT-83152 LS spine comp w obliq 09:50:55 PRACTICE ADMINISTRATOR CPT-23316 Abd compl w upright 09:50:55 PRACTICE ADMINISTRATOR CPT-J1100 Decadron 4mg (Dexamethasone) 15:51:24 PRACTICE ADMINISTRATOR CPT-J1030 Depo Medrol 40 mg (Methyl Prednisolone Acetate) 15:51: 24 PRACTICE ADMINISTRATOR CPT-80102 Abx/Therapy Injection 15:51:24 PRACTICE ADMINISTRATOR CPT-J1100 Decadron 4mg (Dexamethasone) 15:26:33 PRACTICE ADMINISTRATOR CPT-J1030 Depo Medrol 40 mg (Methyl Prednisolone Acetate) 15:26: 33 PRACTICE ADMINISTRATOR CPT-93313 Sono retroperitoneal complete kidneys and bladder 17:15: 30 CDT CPT-80554 Abd compl w upright 16:09:25 CDT CPT-J1100 Decadron 8mg (Dexamethasone) 17:07:57 CDT CPT-93355 Abx/Therapy Injection 17:07:57 CDT CPT-J1100 Decadron 8mg (Dexamethasone) 16:55:24 CDT CPT-21231 Chest 2V Frontal and Lat 16:32:44 CDT
--- OUTSIDE RECORDS SUMMARY | 2016-11-04 16:18 | XMS REPORT | Clinical Summary ---
Author Author Admin, E Organization [facility] Address Unknown Phone Unavailable Allergies, Adverse [...] breath Nocturnal hypoxia 799.02 Active Fabiola Johnson SALES ACCOUNT REPRESENTATIVE Hypoxemia Neck pain 723.1 Resolved Vishal Hui MD Cervicalgia Vaginal discharge 623.5 Resolved Vishal Hui MD Leukorrhea, not specified as infective Abdominal pain, right lower quadrant 789.03 Resolved Vishal Hui MD Abdominal pain, right lower quadrant Calf pain, left 729.5 Resolved Vishal uHi MD Pain in limb Asthma, acute 493.92 [...] day to help quit smoking VARENICLINE TARTRATE 97974917918 No Longer Active Dipika Burgos MD Active CHANTIX STARTING MONTH EARNEST 0.5 MG X 11 & 1 MG X 42 TABS take as directed 2015 VARENICLINE TARTRATE 74805768505 No Longer Active Dipika Burgos MD Active MONISTAT 7 COMBO PACK WOODROW 100 & 2 MG-% (9GM) VAG KIT 1 applicatorful per vagina q pm x 7 MICONAZOLE NITRATE 46863277642 Active Jillina Fradwightl SALES ACCOUNT REPRESENTATIVE Active FLAGYL 500 MG TAB 1 tablet by mouth bid METRONIDAZOLE 29982991731 Active Jillina Frazell SALES ACCOUNT REPRESENTATIVE Active TESSALON PERLES 100 MG CAP 1 to 2 tablets by mouth 3 times daily as needed for cough BENZONATATE 92976782599 No Longer Active Jillina Frazell SALES ACCOUNT REPRESENTATIVE Active ABILIFY MAINTENA 400 MG IM SUSR 400mg injection every 26 days ARIPIPRAZOLE 93425469362 Active Silvia Ervinum DISC PAD GRINDER Active IMITREX 50 MG ORAL TABS 0.5 po x 1 PRN Headache. May repeat dose x 1 in 2 hours if needed SUMATRIPTAN SUCCINATE 53862172232 Active Vishal Hui MD Active OXYCODONE HCL ER 10 MG ORAL T12A 1/2 tab by mouth every 4 hours prn OXYCODONE HCL 46943847774 Active Neeraj Collins MD Active METHYLPREDNISOLONE 4 MG ORAL TABS po daily METHYLPREDNISOLONE 05477734624 Active Vishal Hui MD Active LEVOFLOXACIN 500 MG ORAL TABS po daily LEVOFLOXACIN 48930515133 Active Vishal Hui MD Active HYDROCODONE-ACETAMINOPHEN 5-325 MG TABS 1 to 2 four times a day as needed for pain use until can be seen by specialist HYDROCODONE- ACETAMINOPHEN 98413844937 No Longer Active Vishal Hui MD Active PROAIR HFA 108 (90 BASE) MCG/ACT AERS 2 puffs four times a day as needed 2015 ALBUTEROL SULFATE 08051426093 No Longer Active Vishal Hui MD Active PREDNISONE 20 MG TABS 2 daily for 5 days then 1 daily for 5 days PREDNISONE 86202902894 No Longer Active Vishal Hui MD Active ZITHROMAX Z-EARNEST 250 MG TABS 2 today and then 1 daily for 4 days AZITHROMYCIN 52167426831 No Longer Active Vishal Hui MD Active DICLOFENAC SODIUM 50 MG TBEC 1 tablet by mouth four times daily PRN Pain 2015 DICLOFENAC SODIUM 21194716304 Active Vishal Hui MD Active DICLOFENAC POTASSIUM TABS Take 1 tablet twice a day (pt. is not sure of the dose.) DICLOFENAC POTASSIUM TABS 84986046101 No Longer Active Vishal Hui MD Active VERAPAMIL HCL ER 120 MG ORAL CR-TABS Take 1 tablet by mouth twice a day. VERAPAMIL HCL 45081781525 Active Vishal Hui MD Active FLAGYL 500 MG TAB 1 tablet by mouth bid METRONIDAZOLE 39470443760 No Longer Active Vishal Hui MD Active FLUTICASONE PROPIONATE 50 MCG/ACT SUSP 2 sprays each nostril daily before bed. FLUTICASONE PROPIONATE 11715193164 Active Fabiola Johnson APRN Active ADZENYS XR-ODT 6.3 MG ORAL TBED 1 tab po daily for ADHD AMPHETAMINE 32813085761 Active Fabiola Johnson APRN Active BENADRYL 25 MG CAP 4 po at bedtime for insomnia DIPHENHYDRAMINE HCL 46152461924 Active Fabiola Johnson APRN Active KLONOPIN 1 MG ORAL TABS 1 tab po TID CLONAZEPAM 18801297587 Active Fabiola Johnson APRN Active VALIUM 5 MG TAB Take 1-2 tablets daily DIAZEPAM 26262519939 No Longer Active Fabiola Johnson APRN Active METOPROLOL TARTRATE 25 MG ORAL TABS 1/2 tablet twice daily for heart rate and blood pressure METOPROLOL TARTRATE 32170015246 No Longer Active Fabiola Johnson APRN Active MIRALAX ORAL POWD 17GMS DAILY IN WATER POLYETHYLENE GLYCOL 3350 99958671727 Active Vishal Hui MD Active VIIBRYD 10 MG ORAL TABS Take 1 tablet once a day VILAZODONE HCL 12045629421 Active Ahmet Carbajal MD Active MIRALAX PACK 1 po qd PRN Constipation POLYETHYLENE GLYCOL 3350 68996536393 No Longer Active Ahmet Carbajal MD Active MINIPRESS 2 MG CAPS 4 cap po at night PRAZOSIN HCL 76786604091 No Longer Active Ahmet Carbajal MD Active PIROXICAM 20 MG CAPS 1 cap po qd PRN Pain PIROXICAM 03084671197 No Longer Active Ahmet Carbajal MD Active TRAMADOL HCL 50 MG TABS 1-2 po TID PRN Pain TRAMADOL HCL 16806109473 No Longer Active Ahmet Carabjal MD Active METOPROLOL TARTRATE 50 MG TAB 1 po bid METOPROLOL TARTRATE 25227190022 No Longer Active Ahmet Carbajal MD Active ABILIFY 15 MG ORAL TABS 1 tab daily ARIPIPRAZOLE 98574244796 No Longer Active Ahmet Carbajal MD Active PROZAC 20 MG ORAL CAPS 1 tab daily FLUOXETINE HCL 60703804355 No Longer Active Ahmet Carbajal MD Active AMBIEN 5 MG ORAL TABS 1 tab at bedtime ZOLPIDEM TARTRATE 31546705216 No Longer Active Ahmet Carbajal MD Active PREDNISONE 20 MG TAB 2 tabs daily for 4 days, 1 tab daily for 4 days, 1/2 tab daily for 4 days PREDNISONE 05811239366 No Longer Active Ahmet Carbajal MD Active KEFLEX 500 MG CAP 1 po TID x 10 days CEPHALEXIN 60779513815 No Longer Active Vishal Hui MD Active TOPAMAX 50 MG ORAL TABS 1 tab twice daily TOPIRAMATE 78979382062 Active Vishal Hui MD Active SAPHRIS 5 MG SUBL 1 po bid ASENAPINE MALEATE 37598108747 No Longer Active Luigi Martínez APRN Active LATUDA 80 MG TABS Take one by mouth daily LURASIDONE HCL 09440141981 No Longer Active Luigi Martínez APRN Active AMLODIPINE BESYLATE 5 MG TABS 1 tablet by mouth daily AMLODIPINE BESYLATE 49506495493 No Longer Active Luigi Martínez APRN Active AMITRIPTYLINE HCL 100 MG TAB one at hs AMITRIPTYLINE HCL 22039640571 No Longer Active Vishal Hui MD Active TRAZODONE HCL 100 MG TAB take 1 at bedtime TRAZODONE HCL 12067029385 No Longer Active Vishal Hui MD Active VYVANSE 40 MG CAPS 1 daily, LISDEXAMFETAMINE DIMESYLATE 97805252282 No Longer Active Vishal Hui MD Active IBUPROFEN 600 MG TAB 1 po TID PRN IBUPROFEN 00359351255 No Longer Active Vishal Hui MD Active PROZAC 20 MG CAP Take one by mouth daily FLUOXETINE HCL 70004720592 No Longer Active Vishal Hui MD Active ZOFRAN 4 MG TABS 1 po q6hr PRN Nausea ONDANSETRON HCL Active Vishal Hui MD Active BACTRIM DS 800-160 MG TABS 1 pill by mouth twice daily SULFAMETHOXAZOLE-TRIMETHOPRIM 76236370704 No Longer Active Sahara Rodriguez MD PhD Active DIFLUCAN 150 MG TAB 1 tablet by mouth daily FLUCONAZOLE 14681820085 No Longer Active Vishal Hui MD Active TIZANIDINE HCL 4 MG TABS 1 po q6hr PRN Muscle Spasm/Back Pain TIZANIDINE HCL 45944645436 Active Vishal Hui MD Active CLINDAMYCIN HCL 150 MG CAPS 1 four times a day CLINDAMYCIN HCL 78436892024 No Longer Active Neeraj Collins MD Active KEFLEX 500 MG ORAL CAPS 1 cap QID by mouth CEPHALEXIN 42193249465 No Longer Active Neeraj Collins MD Active DIFLUCAN 150 MG TABS 1 pill every other day x 2 doses FLUCONAZOLE 89867365938 No Longer Active Sahara Rodriguez MD PhD Active MELATONIN 3 MG CAPS 2 po q hs MELATONIN 09819396764 No Longer Active Sahara Rodriguez MD PhD Active MULTIVITAMINS CAPS Take one by mouth daily MULTIPLE VITAMIN 56027128298 No Longer Active Sahara Rodriguez MD PhD Active BACTRIM DS 800-160 MG TAB 1 tab by mouth twice daily TRIMETHOPRIM-SULFAMETHOXAZOLE 44230371553 No Longer Active Sahara Rodriguez MD PhD Active [facility] PROBIOTIC ORAL CHEW 2 daily po PROBIOTIC PRODUCT 81254413085 No Longer Active Sahara Rodriguez MD PhD Active BACTRIM DS 800-160 MG TABS 1 po BID x 7 days SULFAMETHOXAZOLE-TRIMETHOPRIM 05809325334 No Longer Active Vishal Hui MD Active CHANTIX STARTING MONTH EARNEST 0.5 MG X 11 & 1 MG X 42 TABS 0.5mg daily for 3 days , then 0.5mg BID for 4 days, then 1mg BID VARENICLINE TARTRATE 52471832993 No Longer Active TAMARA Gray Active VERAPAMIL HCL CR 120 MG TAB CR 1 po bid VERAPAMIL HCL 88281013293 No Longer Active Vishal Hui MD Active METOPROLOL SUCCINATE 50 MG TB24 1 tablet by mouth daily METOPROLOL SUCCINATE 73429207685 No Longer Active Vishal Hui MD Active SAPHRIS 10 MG SUBL 1 tab po bid ASENAPINE MALEATE 09856249874 No Longer Active Vishal Hui MD Active LISINOPRIL 20 MG TABS 1 tab po qd LISINOPRIL 27450560867 No Longer Active Vishal Hui MD Active LATUDA 20 MG TABS Take one by mouth daily LURASIDONE HCL 93837708220 No Longer Active Vishal Hui MD Active TRAZODONE HCL 50 MG TABS 1/2 tab po qd prn for anxiety TRAZODONE HCL 10979561550 No Longer Active Vishal Hui MD Active OMEPRAZOLE 20 MG TBEC 1 po q a.m. 30min prior to first food intake OMEPRAZOLE 94570435180 Active Vishal Hui MD Active RANITIDINE HCL 150 MG CAPS 1 twice a day RANITIDINE HCL 30872539569 Active Jillina Messizell SALES ACCOUNT REPRESENTATIVE Active LINZESS 290 MCG CAPS Take one by mouth daily LINACLOTIDE 62322677664 No Longer Active Vishal Hui MD Active SAPHRIS 5 MG SUBL 1 tab po qd ASENAPINE MALEATE 00547727004 No Longer Active Vishal Hui MD Active ZALEPLON 10 MG CAPS 1 cap po every other night ZALEPLON 12144786160 No Longer Active Vishal Hui MD Active LYRICA 50 MG CAPS 1 tab po TID PREGABALIN 04229888629 No Longer Active Vishal Hui MD Active LORATADINE 10 MG TABS 1 tab po qd LORATADINE 77206788053 No Longer Active Vishal Hui MD Active VERAPAMIL HCL ER 180 MG CR-TABS 1 tab po bid VERAPAMIL HCL 64401507671 No Longer Active Vishal Hui MD Active MIRALAX POWD 1 capfull once daily POLYETHYLENE GLYCOL 3350 73208220309 No Longer Active Vishal Hui MD Active PREDNISONE 20 MG TABS 1 tab po qd PREDNISONE 12790466062 No Longer Active Renzo Thornton DO Active LEVOFLOXACIN 500 MG TABS 1 tab po qd LEVOFLOXACIN 11857427119 No Longer Active Renzo Thornton DO Active BUSPIRONE HCL 15 MG TABS 1 tab po TID BUSPIRONE HCL 69000092320 No Longer Active Renzo Thornton DO Active BENZTROPINE MESYLATE 1 MG TABS 1 tab po qd BENZTROPINE MESYLATE 04727030095 No Longer Active Renzo Thornton DO Active ATENOLOL 25 MG TABS 1 tab po qd ATENOLOL 16595280328 No Longer Active Renzo Thornton DO Active ESCITALOPRAM OXALATE 20 MG TABS 1 tab po qd ESCITALOPRAM OXALATE 34188572452 No Longer Active Renoz Thornton DO Active ADVAIR DISKUS 250-50 MCG/DOSE AEPB 1 puff BID FLUTICASONE-SALMETEROL 93372386730 No Longer Active Renzo Thornton DO Active PREDNISONE 20 MG TAB 2 tabs daily for 3 days, 1 tab daily for 3 days, 1/2 tab daily for 2 days PREDNISONE 73320691093 No Longer Active Vishal Hui MD Active CEFDINIR 300 MG CAPS by mouth twice a day CEFDINIR 87739875285 No Longer Active Vishal Hui MD Active LANSOPRAZOLE 30 MG CPDR 1 cap po qd LANSOPRAZOLE 23137415736 No Longer Active Vishal Hui MD Active BACLOFEN 20 MG TABS 1 tab po tid BACLOFEN 55951339243 No Longer Active Vishal Hui MD Active ADVAIR DISKUS 250-50 MCG/DOSE AEPB 1 puff BID ADVAIR DISKUS 250-50 MCG/DOSE AEPB FLUTICASONE-SALMETEROL Inactive ESCITALOPRAM OXALATE 20 MG TABS 1 tab po qd ESCITALOPRAM OXALATE 20 MG TABS 599474 ESCITALOPRAM OXALATE Inactive ATENOLOL 25 MG TABS 1 tab po qd ATENOLOL 25 MG TABS 276899 ATENOLOL Inactive BENZTROPINE MESYLATE 1 MG TABS 1 tab po qd BENZTROPINE MESYLATE 1 MG TABS 608967 BENZTROPINE MESYLATE Inactive BUSPIRONE HCL 15 MG TABS 1 tab po TID BUSPIRONE HCL 15 MG TABS 054520 BUSPIRONE HCL Inactive LEVOFLOXACIN 500 MG TABS 1 tab po qd LEVOFLOXACIN 500 MG TABS 913521 LEVOFLOXACIN Inactive PREDNISONE 20 MG TABS 1 tab po qd PREDNISONE 20 MG TABS 792246 PREDNISONE Inactive MIRALAX POWD 1 capfull once daily MIRALAX POWD 888987 POLYETHYLENE GLYCOL 3350 Inactive VERAPAMIL HCL ER 180 MG CR-TABS 1 tab po bid VERAPAMIL HCL ER 180 MG CR-TABS VERAPAMIL HCL Inactive LORATADINE 10 MG TABS 1 tab po qd LORATADINE 10 MG TABS 095602 LORATADINE Inactive LYRICA 50 MG CAPS 1 tab po TID LYRICA 50 MG CAPS PREGABALIN Inactive ZALEPLON 10 MG CAPS 1 cap po every other night ZALEPLON 10 MG CAPS 162321 ZALEPLON Inactive SAPHRIS 5 MG SUBL 1 tab po qd SAPHRIS 5 MG SUBL ASENAPINE MALEATE Inactive TRAZODONE HCL 50 MG TABS 1/2 tab po qd prn for anxiety TRAZODONE HCL 50 MG TABS 847487 TRAZODONE HCL Inactive LATUDA 20 MG TABS Take one by mouth daily LATUDA 20 MG TABS LURASIDONE HCL Inactive LISINOPRIL 20 MG TABS 1 tab po qd LISINOPRIL 20 MG TABS 579883 LISINOPRIL Inactive SAPHRIS 10 MG SUBL 1 [...] twice daily BACTRIM DS 800-160 MG TAB 202337 TRIMETHOPRIM-SULFAMETHOXAZOLE Inactive MULTIVITAMINS CAPS Take one by mouth daily MULTIVITAMINS CAPS MULTIPLE VITAMIN Inactive MELATONIN 3 MG CAPS 2 po q hs MELATONIN 3 MG CAPS 092733 MELATONIN Inactive KEFLEX 500 MG ORAL CAPS 1 cap QID by mouth KEFLEX 500 MG ORAL CAPS 438603 CEPHALEXIN Inactive CLINDAMYCIN HCL 150 MG CAPS 1 four times a day CLINDAMYCIN HCL 150 MG CAPS 379952 CLINDAMYCIN HCL Inactive DIFLUCAN 150 MG TAB 1 tablet by mouth daily DIFLUCAN 150 MG TAB 326863 FLUCONAZOLE Inactive PROZAC 20 MG CAP Take one by mouth daily PROZAC 20 MG CAP 742947 FLUOXETINE HCL Inactive IBUPROFEN 600 MG TAB 1 po TID PRN IBUPROFEN 600 MG TAB 706012 IBUPROFEN Inactive VYVANSE 40 MG CAPS 1 daily, VYVANSE 40 MG CAPS LISDEXAMFETAMINE DIMESYLATE Inactive TRAZODONE HCL 100 MG TAB take 1 at bedtime TRAZODONE HCL 100 MG TAB 865828 TRAZODONE HCL Inactive AMITRIPTYLINE HCL 100 MG TAB one at hs AMITRIPTYLINE HCL 100 MG TAB 594986 AMITRIPTYLINE HCL Inactive AMLODIPINE BESYLATE 5 MG TABS 1 tablet by mouth daily AMLODIPINE BESYLATE 5 MG TABS 289685 AMLODIPINE BESYLATE Inactive LATUDA 80 MG TABS Take one by mouth daily LATUDA 80 MG TABS LURASIDONE HCL Inactive SAPHRIS 5 MG SUBL 1 po bid SAPHRIS 5 MG SUBL ASENAPINE MALEATE Inactive PREDNISONE 20 MG TAB 2 tabs daily for 4 days, 1 tab daily for 4 days, 1/2 tab daily for 4 days PREDNISONE 20 MG TAB 618105 PREDNISONE Inactive AMBIEN 5 MG ORAL TABS 1 tab at bedtime AMBIEN 5 MG ORAL TABS 945190 ZOLPIDEM TARTRATE Inactive PROZAC 20 MG ORAL CAPS 1 tab daily PROZAC 20 MG ORAL CAPS 644504 FLUOXETINE HCL Inactive ABILIFY 15 MG ORAL TABS 1 tab daily ABILIFY 15 MG ORAL TABS 126009 ARIPIPRAZOLE Inactive METOPROLOL TARTRATE 50 MG TAB 1 po bid METOPROLOL TARTRATE 50 MG TAB 615671 METOPROLOL TARTRATE Inactive TRAMADOL HCL 50 MG TABS 1-2 po TID PRN Pain TRAMADOL HCL 50 MG TABS 649865 TRAMADOL HCL Inactive PIROXICAM 20 MG CAPS 1 cap po qd PRN Pain PIROXICAM 20 MG CAPS 107928 PIROXICAM Inactive MINIPRESS 2 MG CAPS 4 cap po at night MINIPRESS 2 MG CAPS 940527 PRAZOSIN HCL Inactive MIRALAX PACK 1 po qd PRN Constipation MIRALAX PACK 793548 POLYETHYLENE GLYCOL 3350 Inactive METOPROLOL TARTRATE 25 MG ORAL TABS 1/2 tablet twice daily for heart rate and blood pressure METOPROLOL TARTRATE 25 MG ORAL TABS 772305 METOPROLOL TARTRATE Inactive VALIUM 5 MG TAB Take 1-2 tablets daily VALIUM 5 MG TAB 695362 DIAZEPAM Inactive FLAGYL 500 MG TAB 1 tablet by mouth bid FLAGYL 500 MG TAB 889375 METRONIDAZOLE Inactive DICLOFENAC POTASSIUM TABS Take 1 tablet twice a day (pt. is not sure of the dose.) DICLOFENAC POTASSIUM TABS DICLOFENAC POTASSIUM TABS Inactive ZITHROMAX Z-EARNEST 250 MG TABS 2 today and then 1 daily for 4 days ZITHROMAX Z-EARNEST 250 MG TABS 7968354 AZITHROMYCIN Inactive PREDNISONE 20 MG TABS 2 daily for 5 days then 1 daily for 5 days PREDNISONE 20 MG TABS 047273 PREDNISONE Inactive PROAIR HFA 108 (90 BASE) MCG/ACT AERS 2 puffs four times a day as needed 2015 PROAIR HFA 108 (90 BASE) MCG/ACT AERS ALBUTEROL SULFATE Inactive HYDROCODONE-ACETAMINOPHEN 5-325 MG TABS 1 to 2 four times a day as needed for pain use until can be seen by specialist HYDROCODONE- ACETAMINOPHEN 5-325 MG TABS 012626 HYDROCODONE-ACETAMINOPHEN Inactive TESSALON PERLES 100 MG CAP 1 to 2 tablets by mouth 3 times daily as needed for cough TESSALON PERLES 100 MG CAP 493318 BENZONATATE Inactive CHANTIX STARTING MONTH EARNEST 0.5 [...] twice a day CEFDINIR 300 MG CAPS 923620 CEFDINIR Inactive PREDNISONE 20 MG TAB 2 tabs daily for 3 days, 1 tab daily for 3 days, 1/2 tab daily for 2 days PREDNISONE 20 MG TAB 576567 PREDNISONE Inactive BACTRIM DS 800-160 MG TABS [...] x 10 days KEFLEX 500 MG CAP 687531 CEPHALEXIN Inactive Advance Directives Directive Description Start [...] % 11.6-14.8 platelet count 394 10^3/MM^3 10*3/mm3 668-276 1190/01/11 leukocyte count, blood 13.8 10^3/MM^3 10*3/mm3 4.6-10.2 [...] Panel - Chemistry sodium, serum 139 mmol/L 650-312 4289/12/03 carbon dioxide, venous blood 28.5 mmol/L 21.0-32.0 [...] 5.5 % 4.3-6.0 cholesterol, serum 159 mg/dL 845-020 7915/12/03 triglyceride, serum, fasting 118 mg/dL 30-200 HDL [...] 362 10^3/MM^3 10*3/mm3 142-424 Lab Report: Chlamydia/GC APTIMA/[id number] - Lab chlamydia DNA probe NOT DETECTED NOT DETECTED Lab Report: Chlamydia/GC [facility]TIMA/07178 - Microbiology Neisseria gonorrhoeae DNA probe NOT DETECTED NOT DETECTED Lab Report: Comp. Metabolic Panel - Chemistry sodium, serum 140 mmol/L 923-851 5265/08/08 carbon dioxide, venous blood 33.7 mmol/L 21.0-32.0 potassium, serum 5.0 mmol/L 3.5-5.2 chloride, serum 103 mmol/L 98-107 blood glucose 80 mg/dL 65-110 urea nitrogen, blood 13 mg/dL 7-18 creatinine, serum 0.88 mg/dL 0.55-1.30 alanine aminotransferase (SGPT), serum 54 U/L -78 aspartate aminotransferase (SGOT), serum 29 U/L 15-37 calcium, serum 9.7 mg/dL 8.5-10.1 bilirubin, serum, total 0.30 mg/dL 0.00-1.00 sodium, serum 139 mmol/L 832-955 9143/12/22 carbon dioxide, venous blood 26.8 mmol/L 21.0-32.0 potassium, serum 4.2 mmol/L 3.5-5.2 chloride, serum 103 mmol/L 98-107 blood glucose 115 mg/dL 65-110 urea nitrogen, blood 20 mg/dL 7-18 creatinine, serum 0.90 mg/dL 0.55-1.30 alanine aminotransferase (SGPT), serum 38 U/L aspartate aminotransferase (SGOT), serum 19 U/L 15-37 calcium, serum 8.6 mg/dL 8.5-10.1 bilirubin, serum, total 0.30 mg/dL 0.00-1.00 sodium, serum 139 mmol/L 930-782 2725/01/11 carbon dioxide, venous blood 26.6 mmol/L 21.0-32.0 potassium, serum 4.1 mmol/L 3.5-5.2 chloride, serum 100 mmol/L 98-107 blood glucose 86 mg/dL 65-110 urea nitrogen, blood 16 mg/dL 7-18 creatinine, serum 1.00 mg/dL 0.55-1.30 alanine aminotransferase (SGPT), serum 48 U/L aspartate aminotransferase (SGOT), serum 17 U/L 15-37 calcium, serum 9.1 mg/dL 8.5-10.1 bilirubin, serum, total 0.40 mg/dL 0.00-1.00 sodium, serum 142 mmol/L 574-317 0100/06/08 carbon dioxide, venous blood 27.6 mmol/L 21.0-32.0 [...] Rate - Chemistry sodium, serum 139 mmol/L 626-102 0297/12/11 carbon dioxide, venous blood 25.4 mmol/L 21.0-32.0 [...] mg/dL Encounters Code Encounter Date Provider Facility CPT-61456 Level 3 Est. Patient 13:59:59 CDT Luigi Martínez Formerly named [facility] CPT-16480 Level 3 Est. Patient 18:18:53 CDT Neeraj Collins MD [facility] CPT-51329 Level 3 Est. Patient 15:50:44 CDT Vishal Hui MD [facility] CPT-48057 Level 3 Est. Patient 11:36:17 CDT Ahmet Carbajal MD [facility] CPT-70529 Level 3 Est. Patient 13:29:16 CDT Vishal Hui MD [facility] CPT-69498 Level 3 Est. Patient 14:27:52 CDT Neeraj Collins MD [facility] CPT-15706 Level 3 Est. Patient 08:56:03 CDT Luigi Martínez Formerly named [facility] CPT-31315 Level 4 Est. Patient 12:11:48 CDT Fabiola Johnson Formerly named [facility] CPT-65170 Level 3 New Patient 16:53:37 CDT Albert Caldera MD [facility] CPT-21065 Level 3 Est. Patient 11:25:49 CDT Renzo Thornton DO [facility] CPT-47145 Level 3 Est. Patient 15:22:01 CDT Ahmet Carbajal MD [facility] CPT-39414 Level 4 Est. 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 Patient 11:37:33 HIGH SCHOOL ASSISTANT PRINCIPAL Vishal Hui MD [facility] CPT-79406 Level 3 Est. Patient 08:41:09 HIGH SCHOOL ASSISTANT PRINCIPAL Vishal Hui MD [facility] CPT-49083 Level 4 Est. Patient 10:19:35 HIGH SCHOOL ASSISTANT PRINCIPAL Vishal Hui MD [facility] CPT-42456 Level 3 Est. Patient 13:35:45 CDT Vishal Hui MD [facility] [place]-43898 Level 4 Est. Patient 10:08:37 CDT Vishal Hui MD [facility] [place]-58144 Level 3 Est. Patient 11:22:10 CDT Vishal Hui MD [facility] [place]-37466 Level 3 Est. Patient 11:03:32 CDT Sahara Rodriguez MD [facility]-56879 Level 3 Est. Patient 09:41:35 CDT Vishal Hui MD [facility]-84995 Level 3 Est. Patient 12:00:41 CDT Neeraj Collins MD [facility] [place]-38021 Level 3 Est. Patient 09:16:24 CDT Vishal Hui MD [facility] [place]-75279 Level 4 Est. Patient 13:59:09 CDT Neeraj Collins MD [facility] [place]-88274 Level 3 Est. Patient 15:19:43 CDT Renzo Thornton DO [facility] [place]-39018 Level 3 Est. Patient 18:10:26 CDT Sahara Rodriguez MD [facility]-19878 Level 3 Est. Patient 14:49:50 CDT Vishal Hui MD [facility] [place]-59574 Level 4 Est. Patient 18:41:46 CDT Neeraj Collins MD [facility] [place]-21171 Level 4 Est. 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 Patient 14:43:55 HIGH SCHOOL ASSISTANT PRINCIPAL Vishal Hui MD [facility] [place]-70230 Level 3 Est. Patient 15:26:33 HIGH SCHOOL ASSISTANT PRINCIPAL Sahara Rodriguez MD PhD [facility] [place]14 Level 3 Est. Patient 10:32:14 HIGH SCHOOL ASSISTANT PRINCIPAL Vishal Hui MD [facility] CPT-33475 Level 3 Est. Patient 15:12:52 HIGH SCHOOL ASSISTANT PRINCIPAL Vishal Hui MD [facility] CPT-83584 Level 4 Est. Patient 09:19:27 CDT Vishal Hui MD [facility] CPT-45457 Level 3 Est. Patient 15:53:00 CDT Renzo Thornton [facility] CPT-44254 Level 3 Est. Patient 15:50:30 CDT Renzo Thornton [facility] CPT-11752 Level 3 Est. Patient 16:55:24 CDT Vishal Hui MD [facility] Procedures Code Procedure Name Date Entry Date Standard Description CPT-98103 Nexplanon Removal with Reinsertion 14:09:32 CDT CPT-J7307 Nexplanon (Implant) 14:09:32 CDT CPT-OV Office Visit 14:09:32 CDT CPT-12257 UA w micro - LAB USE ONLY 16:21:13 CDT CPT-24864 Wet Mount - LAB USE ONLY 16:21:13 CDT CPT-28770 First Vx - Ix admin for Medicare patients 14:37:47 CDT CPT-39402 Fluzone Preservative Free Intramuscular Suspension 14:37 :47 CDT CPT-57404 Abx/Therapy Injection 13:54:22 CDT CPT-79635 Abx/Therapy Injection 08:47:09 CDT CPT-81525 Abx/Therapy Injection 13:29:56 CDT CPT-20808 Abx/Therapy Injection 08:36:16 CDT CPT-82388 Wet Mount - LAB USE ONLY 17:44:58 CDT CPT-99905 UA w micro - LAB USE ONLY 17:44:58 CDT CPT-40367 CMP - LAB USE ONLY 17:44:58 CDT CPT-46736 Venipuncture Draw Fee 17:44:58 CDT CPT-81500 Cervical Min 4V - XRAY USE ONLY 09:01:40 CDT CPT-26197 Chest 2V Frontal and Lat - XRAY USE ONLY 11:06:31 CDT CPT-24194 EKG Trac and Interp - XRAY USE ONLY 11:31:43 CDT 08/26 CPT-J3420 Vitamin B12 1000mcg (Cyanocobalamin) 08:10:26 HIGH SCHOOL ASSISTANT PRINCIPAL 04/12 CPT-24298 Abx/Therapy Injection 08:10:26 HIGH SCHOOL ASSISTANT PRINCIPAL CPT-G0438 Initial Annual Wellness Exam 19:01:01 HIGH SCHOOL ASSISTANT PRINCIPAL CPT-J3420 Vitamin B12 1000mcg (Cyanocobalamin) 16:57:46 CDT 08/14 CPT-36621 Recombivax HB Injection Suspension 5 MCG/0.5ML 08:37:50 HIGH [employer]OL ASSISTANT PRINCIPAL CPT-27461 Immunization Single Admin 08:37:50 HIGH SCHOOL ASSISTANT PRINCIPAL CPT-J3420 Vitamin B12 1000mcg (Cyanocobalamin) 08:32:16 HIGH SCHOOL ASSISTANT PRINCIPAL 03/11 CPT-16338 Abx/Therapy Injection 08:32:16 HIGH SCHOOL ASSISTANT PRINCIPAL CPT-25549 Chest 2V Frontal and Lat 11:46:38 [employer]IPAL CPT-53053 Venipuncture Draw Fee 09:12:45 [employer]INCIPAL CPT-J3420 Vitamin B12 1000mcg (Cyanocobalamin) 08:50:15 [employer]INCIPAL 02/08 CPT-20925 Abx/Therapy Injection 08:50:15 [employer] PRINCIPAL CPT-Cryo Cryotherapy 10:19:35 [employer]INCIPAL CPT-000 Give Appropriate Flu Vaccine 09:22:16 CDT CPT-J3420 Vitamin B12 1000mcg (Cyanocobalamin) 19:08:57 CDT 01/11 CPT-39982 Abx/Therapy Injection 19:08:57 CDT CPT-J3420 Vitamin B12 1000mcg (Cyanocobalamin) 08:19:08 CDT 12/11 CPT-32018 Abx/Therapy Injection 08:19:08 CDT CPT-J3420 Vitamin B12 1000mcg (Cyanocobalamin) 14:48:00 CDT 11/09 CPT-57121 Abx/Therapy Injection 14:47:59 CDT CPT-J3420 Vitamin B12 1000mcg (Cyanocobalamin) 08:34:04 CDT 10/09 CPT-06076 Abx/Therapy Injection 08:34:04 CDT CPT-J3420 Vitamin B12 1000mcg (Cyanocobalamin) 09:18:52 CDT 09/11 CPT-33030 Abx/Therapy Injection 09:18:52 CDT CPT-J3420 Vitamin B12 1000mcg (Cyanocobalamin) 08:35:44 CDT 09/04 CPT-69646 Abx/Therapy Injection 08:35:44 CDT CPT-68001 Immunization Single Admin 11:07:16 CDT CPT-78846 Hepatitis B adult IM 11:07:16 CDT CPT-J3420 Vitamin B12 1000mcg (Cyanocobalamin) 11:00:49 CDT 08/28 CPT-J1040 Depo Medrol 80 mg (Methyl Prednisolone Acetate) 11:00: 49 CDT CPT-46919 Abx/Therapy Injection 11:00:49 CDT CPT-J1040 Depo Medrol 80 mg (Methyl Prednisolone Acetate) 09:16: 23 CDT CPT-J3420 Vitamin B12 1000mcg (Cyanocobalamin) 08:27:05 CDT 08/20 CPT-84631 Abx/Therapy Injection 08:27:05 CDT CPT-90085 Recombivax HB Injection Suspension 5 MCG/0.5ML 10:00:41 CDT CPT-39017 Administration single or combination vaccine inc oral 10 :00:41 CDT CPT-02186 Sono transvag pelvis non OB uterus ovaries cervix 16:36: 57 CDT CPT-67610 LS spine comp w obliq 09:50:55 [employer] CPT-57030 Abd compl w upright 09:50:55 [employer] CPT-J1100 Decadron 4mg (Dexamethasone) 15:51:24 [employer] CPT-J1030 Depo Medrol 40 mg (Methyl Prednisolone Acetate) 15:51: 24 [employer] CPT-20665 Abx/Therapy Injection 15:51:24 [employer] CPT-J1100 Decadron 4mg (Dexamethasone) 15:26:33 [employer] CPT-J1030 Depo Medrol 40 mg (Methyl Prednisolone Acetate) 15:26: 33 [employer] CPT-36492 Sono retroperitoneal complete kidneys and bladder 17:15: 30 CDT CPT-28784 Abd compl w upright 16:09:25 CDT CPT-J1100 Decadron 8mg (Dexamethasone) 17:07:57 CDT CPT-59816 Abx/Therapy Injection 17:07:57 CDT CPT-J1100 Decadron 8mg (Dexamethasone) 16:55:24 CDT CPT-80495 Chest 2V Frontal and Lat 16:32:44 CDT
--- OUTSIDE RECORDS SUMMARY | 2016-11-04 16:20 | XMS REPORT | Clinical Summary ---
Author Author Admin, E Organization [employer] Address Unknown Phone Unavailable Allergies, Adverse Reactions, [...] sites Morbid obesity 278.01 Active Juliet Kimbrough MANUFACTURING ANALYST Morbid obesity 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 Active Juliet Kimbrough MANUFACTURING ANALYST Dependence on other enabling machines and devices Gait unsteady 781.2 Resolved Albert Caldera MD Abnormality of gait Lipoma 214.9 Resolved Albert Caldera MD Lipoma, unspecified site Abdominal pain, RUQ 789.01 Resolved Albert Caldera MD Abdominal pain, right upper quadrant Chest pain, acute 786.50 Resolved Albert Caldrea MD Unspecified chest pain Localized adiposity 278.1 Resolved Vishal Hui MD Localized adiposity Shortness of breath 786.05 Resolved Vishal Hui MD Shortness of breath Nocturnal hypoxia 799.02 Active Fabiola Johnson MANUFACTURING ANALYST Hypoxemia Neck pain 723.1 Resolved Vishal [...] Acute upper respiratory infections of unspecified site Pneumonia, organism unspecified ICD-486 Inactive Vishal Hui MD Flank pain, right ICD-789.09 Inactive Vishal Hui MD G E R D ICD-530.81 Inactive Vishal Hui MD Anxiety Disorder ICD-300.00 Inactive Vishal Hui MD Smoker/tobacco use disorder-smoking cessation discussed ICD-305.1 Inactive Vishal Hui MD Pelvic pain ICD-625.9 Inactive Vishal Hui MD Abscess, skin ICD-682.9 Jim Hui MD Physical examination ICD-V70.0 Inactive Vishal Hui MD Cellulitis ICD-682.9 Inactive Vishal Hui MD Abdominal pain ICD-789.00 Inactive Vishal Hui MD Fatigue ICD-780.79 Inactive Vishal Hui MD 2014 Vaginitis, candidal ICD-112.1 Inactive Vishal Hui MD Other abnormal blood chemistry ICD-790.6 Inactive Vishal Hui MD Vaginitis ICD-616.10 Inactive Vishal Hui MD Boils, recurrent ICD-680.9 Inactive Vishal Hui MD Postconcussion syndrome ICD-310.2 Inactive Vishal Hui MD Nevus, 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 Inactive Vishal Hui MD Encounter for removal of sutures ICD-V58.32 Inactive iVshal Hui MD Hot flashes ICD-627.2 Inactive Vishal [...] of breath ICD-786.05 Inactive Vishal Hui MD 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 Inactive Vishal Hui MD Neck pain ICD-723.1 [...] times daily as needed for cough BENZONATATE 23255670183 Active Vishal Hui MD Active METHYLPREDNISOLONE 4 MG ORAL TABS po daily METHYLPREDNISOLONE 55627653196 Active Vishal Hui MD Active LEVOFLOXACIN 500 MG ORAL TABS po daily LEVOFLOXACIN 14443914580 Active Vishal Hui MD Active CHANTIX STARTING MONTH EARNEST 0.5 MG X 11 & 1 MG X 42 TABS take as directed 2015 VARENICLINE TARTRATE 92119692697 Active Ahmet Carbajal MD Active CHANTIX 1 MG TABS 1 twice a day to help quit smoking VARENICLINE TARTRATE 94270730562 Active Ahmet Carbajal MD Active HYDROCODONE-ACETAMINOPHEN 5-325 MG TABS 1 to 2 four times a day as needed for pain use until can be seen by specialist HYDROCODONE- ACETAMINOPHEN 01119945885 No Longer Active Vishal Hui MD Active PROAIR HFA 108 (90 BASE) MCG/ACT AERS 2 puffs four times a day as needed 2015 ALBUTEROL SULFATE 10568901104 No Longer Active Vishal Hui MD Active PREDNISONE 20 MG TABS 2 daily for 5 days then 1 daily for 5 days PREDNISONE 40406634536 No Longer Active Vishal Hui MD Active ZITHROMAX Z-EARNEST 250 MG TABS 2 today and then 1 daily for 4 days AZITHROMYCIN 83985255488 No Longer Active Vishal Hui MD Active DICLOFENAC SODIUM 50 MG TBEC 1 tablet by mouth four times daily PRN Pain 2015 DICLOFENAC SODIUM 06870322078 Active Vishal Hui MD Active DICLOFENAC POTASSIUM TABS Take 1 tablet twice a day (pt. is not sure of the dose.) DICLOFENAC POTASSIUM TABS 10587291278 No Longer Active Vishal Hui MD Active VERAPAMIL HCL ER 120 MG ORAL CR-TABS Take 1 tablet by mouth twice a day. VERAPAMIL HCL 70024682842 Active Vishal Hui MD Active FLAGYL 500 MG TAB 1 tablet by mouth bid METRONIDAZOLE 59797018892 No Longer Active Vishal Hui MD Active ABILIFY MAINTENA 400 MG IM SUSR 400mg injection every 28 days ARIPIPRAZOLE 94323839537 Active Silvia Casey ACOUSTICS TEACHER Active FLUTICASONE PROPIONATE 50 MCG/ACT SUSP 2 sprays each nostril daily before bed. FLUTICASONE PROPIONATE 15108759077 Active Fabiola Johnson MANUFACTURING ANALYST Active ADZENYS XR-ODT 6.3 MG ORAL TBED 1 tab po daily for ADHD AMPHETAMINE 23351989915 Active Fabiola Johnson APRN Active BENADRYL 25 MG CAP 4 po at bedtime for insomnia DIPHENHYDRAMINE HCL 57914083751 Active Fabiola Johnson APRN Active KLONOPIN 1 MG ORAL TABS 1 tab po TID CLONAZEPAM 65548478603 Active Fabiola Johnson APRN Active VALIUM 5 MG TAB Take 1-2 tablets daily DIAZEPAM 19265377490 No Longer Active Fabiola Johnson APRN Active METOPROLOL TARTRATE 25 MG ORAL TABS 1/2 tablet twice daily for heart rate and blood pressure METOPROLOL TARTRATE 71471797532 No Longer Active Fabiola Johnson APRN Active MIRALAX ORAL POWD 17GMS DAILY IN WATER POLYETHYLENE GLYCOL 3350 41191112810 Active Vishal Hui MD Active VIIBRYD 10 MG ORAL TABS Take 1 tablet once a day VILAZODONE HCL 44012029474 Active Ahmet Carbajal MD Active MIRALAX PACK 1 po qd PRN Constipation POLYETHYLENE GLYCOL 3350 56316360584 No Longer Active Ahmet Carbajal MD Active MINIPRESS 2 MG CAPS 4 cap po at night PRAZOSIN HCL 43599140672 No Longer Active Ahmet Carbajal MD Active PIROXICAM 20 MG CAPS 1 cap po qd PRN Pain PIROXICAM 06011857792 No Longer Active Ahmet Carbajal MD Active TRAMADOL HCL 50 MG TABS 1-2 po TID PRN Pain TRAMADOL HCL 29043777024 No Longer Active Ahmet Carbajal MD Active METOPROLOL TARTRATE 50 MG TAB 1 po bid METOPROLOL TARTRATE 99387169302 No Longer Active Ahmet Carbajal MD Active ABILIFY 15 MG ORAL TABS 1 tab daily ARIPIPRAZOLE 61772241980 No Longer Active Ahmet Carbajal MD Active PROZAC 20 MG ORAL CAPS 1 tab daily FLUOXETINE HCL 98912564491 No Longer Active Ahmet Carbajal MD Active AMBIEN 5 MG ORAL TABS 1 tab at bedtime ZOLPIDEM TARTRATE 50968453197 No Longer Active Ahmet Carbajal MD Active PREDNISONE 20 MG TAB 2 tabs daily for 4 days, 1 tab daily for 4 days, 1/2 tab daily for 4 days PREDNISONE 59079322918 No Longer Active Ahmet Carbajal MD Active KEFLEX 500 MG CAP 1 po TID x 10 days CEPHALEXIN 36905609740 No Longer Active Vishal Hui MD Active IMITREX 50 MG ORAL TABS 1/2 tab every 6 hours prn SUMATRIPTAN SUCCINATE 16279631148 Active Jillina Frazell MANUFACTURING ANALYST Active TOPAMAX 50 MG ORAL TABS 1 tab twice daily TOPIRAMATE 34210287317 Active Vishal Hui MD Active SAPHRIS 5 MG SUBL 1 po bid ASENAPINE MALEATE 21135554147 No Longer Active Jillina Frazell MANUFACTURING ANALYST Active LATUDA 80 MG TABS Take one by mouth daily LURASIDONE HCL 55062147506 No Longer Active Jillina Frazell MANUFACTURING ANALYST Active AMLODIPINE BESYLATE 5 MG TABS 1 tablet by mouth daily AMLODIPINE BESYLATE 87713814610 No Longer Active Jillina Frazell MANUFACTURING ANALYST Active AMITRIPTYLINE HCL 100 MG TAB one at hs AMITRIPTYLINE HCL 44577288259 No Longer Active Vishal Hui MD Active TRAZODONE HCL 100 MG TAB take 1 at bedtime TRAZODONE HCL 94428235658 No Longer Active Vishal Hui MD Active VYVANSE 40 MG CAPS 1 daily, LISDEXAMFETAMINE DIMESYLATE 68824705048 No Longer Active Vishal Hui MD Active IBUPROFEN 600 MG TAB 1 po TID PRN IBUPROFEN 71682281696 No Longer Active Vishal Hui MD Active PROZAC 20 MG CAP Take one by mouth daily FLUOXETINE HCL 02668180157 No Longer Active Vishal Hui MD Active ZOFRAN 4 MG TABS 1 po q6hr PRN Nausea ONDANSETRON HCL Active Vishal Hui MD Active BACTRIM DS 800-160 MG TABS 1 pill by mouth twice daily SULFAMETHOXAZOLE-TRIMETHOPRIM 89846166941 No Longer Active Sahara Rodriguez MD PhD Active DIFLUCAN 150 MG TAB 1 tablet by mouth daily FLUCONAZOLE 10098554439 No Longer Active Vishal Hui MD Active TIZANIDINE HCL 4 MG TABS 1 po q6hr PRN Muscle Spasm/Back Pain TIZANIDINE HCL 91434390679 Active Vishal Hui MD Active CLINDAMYCIN HCL 150 MG CAPS 1 four times a day CLINDAMYCIN HCL 42778069040 No Longer Active Neeraj Collins MD Active KEFLEX 500 MG ORAL CAPS 1 cap QID by mouth CEPHALEXIN 40398289212 No Longer Active Neeraj Collins MD Active DIFLUCAN 150 MG TABS 1 pill every other day x 2 doses FLUCONAZOLE 55112145423 No Longer Active Sahara Rodriguez MD PhD Active MELATONIN 3 MG CAPS 2 po q hs MELATONIN 94607628181 No Longer Active Sahara Rodriguez MD PhD Active MULTIVITAMINS CAPS Take one by mouth daily MULTIPLE VITAMIN 30361298826 No Longer Active Sahara Rodriguez MD PhD Active BACTRIM DS 800-160 MG TAB 1 tab by mouth twice daily TRIMETHOPRIM-SULFAMETHOXAZOLE 17212855157 No Longer Active Sahara Rodriguez MD PhD Active [facility] PROBIOTIC ORAL CHEW 2 daily po PROBIOTIC PRODUCT 31125547691 No Longer Active Sahara Rodriguez MD PhD Active BACTRIM DS 800-160 MG TABS 1 po BID x 7 days SULFAMETHOXAZOLE-TRIMETHOPRIM 40380374031 No Longer Active Vishal Hui MD Active CHANTIX STARTING MONTH EARNEST 0.5 MG X 11 & 1 MG X 42 TABS 0.5mg daily for 3 days , then 0.5mg BID for 4 days, then 1mg BID VARENICLINE TARTRATE 35937655102 No Longer Active TAMARA Gray Active VERAPAMIL HCL CR 120 MG TAB CR 1 po bid VERAPAMIL HCL 99171811820 No Longer Active Vishal Hui MD Active METOPROLOL SUCCINATE 50 MG TB24 1 tablet by mouth daily METOPROLOL SUCCINATE 38851538274 No Longer Active Vishal Hui MD Active SAPHRIS 10 MG SUBL 1 tab po bid ASENAPINE MALEATE 57322984475 No Longer Active Vishal Hui MD Active LISINOPRIL 20 MG TABS 1 tab po qd LISINOPRIL 44311911937 No Longer Active Vishal Hui MD Active LATUDA 20 MG TABS Take one by mouth daily LURASIDONE HCL 84510385472 No Longer Active Vishal Hui MD Active TRAZODONE HCL 50 MG TABS 1/2 tab po qd prn for anxiety TRAZODONE HCL 33046263744 No Longer Active Vishal Hui MD Active OMEPRAZOLE 20 MG TBEC 1 po q a.m. 30min prior to first food intake OMEPRAZOLE 06973464926 Active Vishal Hui MD Active RANITIDINE HCL 150 MG CAPS 1 twice a day RANITIDINE HCL 95743215353 Active Luigi Martínez APRN Active LINZESS 290 MCG CAPS Take one by mouth daily LINACLOTIDE 15261301915 No Longer Active Vishal Hui MD Active SAPHRIS 5 MG SUBL 1 tab po qd ASENAPINE MALEATE 19336954809 No Longer Active Vishal Hui MD Active ZALEPLON 10 MG CAPS 1 cap po every other night ZALEPLON 79569313783 No Longer Active Vishal Hui MD Active LYRICA 50 MG CAPS 1 tab po TID PREGABALIN 66286222329 No Longer Active Vishal Hui MD Active LORATADINE 10 MG TABS 1 tab po qd LORATADINE 44897804541 No Longer Active iVshal Hui MD Active VERAPAMIL HCL ER 180 MG CR-TABS 1 tab po bid VERAPAMIL HCL 79774542545 No Longer Active Vishal Hui MD Active MIRALAX POWD 1 capfull once daily POLYETHYLENE GLYCOL 3350 29209993116 No Longer Active Vishal Hui MD Active PREDNISONE 20 MG TABS 1 tab po qd PREDNISONE 85962338166 No Longer Active Renzo Thornton DO Active LEVOFLOXACIN 500 MG TABS 1 tab po qd LEVOFLOXACIN 80411478625 No Longer Active Renzo Thornton DO Active BUSPIRONE HCL 15 MG TABS 1 tab po TID BUSPIRONE HCL 08054309644 No Longer Active Renzo Thornton DO Active BENZTROPINE MESYLATE 1 MG TABS 1 tab po qd BENZTROPINE MESYLATE 41851171141 No Longer Active Renzo Thornton DO Active ATENOLOL 25 MG TABS 1 tab po qd ATENOLOL 47907757770 No Longer Active Renzo Thornton DO Active ESCITALOPRAM OXALATE 20 MG TABS 1 tab po qd ESCITALOPRAM OXALATE 99561370920 No Longer Active Renzo Thornton DO Active ADVAIR DISKUS 250-50 MCG/DOSE AEPB 1 puff BID FLUTICASONE-SALMETEROL 38727479327 No Longer Active Renzo Thornton DO Active PREDNISONE 20 MG TAB 2 tabs daily for 3 days, 1 tab daily for 3 days, 1/2 tab daily for 2 days PREDNISONE 42731180077 No Longer Active Vishal Hui MD Active CEFDINIR 300 MG CAPS by mouth twice a day CEFDINIR 06908655712 No Longer Active Vishal Hui MD Active LANSOPRAZOLE 30 MG CPDR 1 cap po qd LANSOPRAZOLE 38696863575 No Longer Active Vishal Hui MD Active BACLOFEN 20 MG TABS 1 tab po tid BACLOFEN 80120290571 No Longer Active Vishal Hui MD Active ADVAIR DISKUS 250-50 MCG/DOSE AEPB 1 puff BID ADVAIR DISKUS 250-50 MCG/DOSE AEPB FLUTICASONE-SALMETEROL Inactive ESCITALOPRAM OXALATE 20 MG TABS 1 tab po qd ESCITALOPRAM OXALATE 20 MG TABS 827537 ESCITALOPRAM OXALATE Inactive ATENOLOL 25 MG TABS 1 tab po qd ATENOLOL 25 MG TABS 255352 ATENOLOL Inactive BENZTROPINE MESYLATE 1 MG TABS 1 tab po qd BENZTROPINE MESYLATE 1 MG TABS 666146 BENZTROPINE MESYLATE Inactive BUSPIRONE HCL 15 MG TABS 1 tab po TID BUSPIRONE HCL 15 MG TABS 277383 BUSPIRONE HCL Inactive LEVOFLOXACIN 500 MG TABS 1 tab po qd LEVOFLOXACIN 500 MG TABS 472379 LEVOFLOXACIN Inactive PREDNISONE 20 MG TABS 1 tab po qd PREDNISONE 20 MG TABS 451728 PREDNISONE Inactive MIRALAX POWD 1 capfull once daily MIRALAX POWD 266920 POLYETHYLENE GLYCOL 3350 Inactive VERAPAMIL HCL ER 180 MG CR-TABS 1 tab po bid VERAPAMIL HCL ER 180 MG CR-TABS VERAPAMIL HCL Inactive LORATADINE 10 MG TABS 1 tab po qd LORATADINE 10 MG TABS 561954 LORATADINE Inactive LYRICA 50 MG CAPS 1 tab po TID LYRICA 50 MG CAPS PREGABALIN Inactive ZALEPLON 10 MG CAPS 1 cap po every other night ZALEPLON 10 MG CAPS 023397 ZALEPLON Inactive SAPHRIS 5 MG SUBL 1 tab po qd SAPHRIS 5 MG SUBL ASENAPINE MALEATE Inactive TRAZODONE HCL 50 MG TABS 1/2 tab po qd prn for anxiety TRAZODONE HCL 50 MG TABS 630570 TRAZODONE HCL Inactive LATUDA 20 MG TABS Take one by mouth daily LATUDA 20 MG TABS LURASIDONE HCL Inactive LISINOPRIL 20 MG TABS 1 tab po qd LISINOPRIL 20 MG TABS 417842 LISINOPRIL Inactive SAPHRIS 10 MG SUBL 1 [...] twice daily BACTRIM DS 800-160 MG TAB 102601 TRIMETHOPRIM-SULFAMETHOXAZOLE Inactive MULTIVITAMINS CAPS Take one by mouth daily MULTIVITAMINS CAPS MULTIPLE VITAMIN Inactive MELATONIN 3 MG CAPS 2 po q hs MELATONIN 3 MG CAPS 120718 MELATONIN Inactive KEFLEX 500 MG ORAL CAPS 1 cap QID by mouth KEFLEX 500 MG ORAL CAPS 515628 CEPHALEXIN Inactive CLINDAMYCIN HCL 150 MG CAPS 1 four times a day CLINDAMYCIN HCL 150 MG CAPS 361643 CLINDAMYCIN HCL Inactive DIFLUCAN 150 MG TAB 1 tablet by mouth daily DIFLUCAN 150 MG TAB 711165 FLUCONAZOLE Inactive PROZAC 20 MG CAP Take one by mouth daily PROZAC 20 MG CAP 057854 FLUOXETINE HCL Inactive IBUPROFEN 600 MG TAB 1 po TID PRN IBUPROFEN 600 MG TAB 093365 IBUPROFEN Inactive VYVANSE 40 MG CAPS 1 daily, VYVANSE 40 MG CAPS LISDEXAMFETAMINE DIMESYLATE Inactive TRAZODONE HCL 100 MG TAB take 1 at bedtime TRAZODONE HCL 100 MG TAB 868099 TRAZODONE HCL Inactive AMITRIPTYLINE HCL 100 MG TAB one at hs AMITRIPTYLINE HCL 100 MG TAB 214195 AMITRIPTYLINE HCL Inactive AMLODIPINE BESYLATE 5 MG TABS 1 tablet by mouth daily AMLODIPINE BESYLATE 5 MG TABS 388063 AMLODIPINE BESYLATE Inactive LATUDA 80 MG TABS Take one by mouth daily LATUDA 80 MG TABS LURASIDONE HCL Inactive SAPHRIS 5 MG SUBL 1 po bid SAPHRIS 5 MG SUBL ASENAPINE MALEATE Inactive PREDNISONE 20 MG TAB 2 tabs daily for 4 days, 1 tab daily for 4 days, 1/2 tab daily for 4 days PREDNISONE 20 MG TAB 400056 PREDNISONE Inactive AMBIEN 5 MG ORAL TABS 1 tab at bedtime AMBIEN 5 MG ORAL TABS 602605 ZOLPIDEM TARTRATE Inactive PROZAC 20 MG ORAL CAPS 1 tab daily PROZAC 20 MG ORAL CAPS 363738 FLUOXETINE HCL Inactive ABILIFY 15 MG ORAL TABS 1 tab daily ABILIFY 15 MG ORAL TABS 815288 ARIPIPRAZOLE Inactive METOPROLOL TARTRATE 50 MG TAB 1 po bid METOPROLOL TARTRATE 50 MG TAB 073659 METOPROLOL TARTRATE Inactive TRAMADOL HCL 50 MG TABS 1-2 po TID PRN Pain TRAMADOL HCL 50 MG TABS 721503 TRAMADOL HCL Inactive PIROXICAM 20 MG CAPS 1 cap po qd PRN Pain PIROXICAM 20 MG CAPS 958815 PIROXICAM Inactive MINIPRESS 2 MG CAPS 4 cap po at night MINIPRESS 2 MG CAPS 316935 PRAZOSIN HCL Inactive MIRALAX PACK 1 po qd PRN Constipation MIRALAX PACK 795556 POLYETHYLENE GLYCOL 3350 Inactive METOPROLOL TARTRATE 25 MG ORAL TABS 1/2 tablet twice daily for heart rate and blood pressure METOPROLOL TARTRATE 25 MG ORAL TABS 483491 METOPROLOL TARTRATE Inactive VALIUM 5 MG TAB Take 1-2 tablets daily VALIUM 5 MG TAB 438654 DIAZEPAM Inactive FLAGYL 500 MG TAB 1 tablet by mouth bid FLAGYL 500 MG TAB 947497 METRONIDAZOLE Inactive DICLOFENAC POTASSIUM TABS Take 1 tablet twice a day (pt. is not sure of the dose.) DICLOFENAC POTASSIUM TABS DICLOFENAC POTASSIUM TABS Inactive ZITHROMAX Z-EARNEST 250 MG TABS 2 today and then 1 daily for 4 days ZITHROMAX Z-EARNEST 250 MG TABS 0605557 AZITHROMYCIN Inactive PREDNISONE 20 MG TABS 2 daily for 5 days then 1 daily for 5 days PREDNISONE 20 MG TABS 792408 PREDNISONE Inactive PROAIR HFA 108 (90 BASE) MCG/ACT AERS 2 puffs four times a day as needed 2015 PROAIR HFA 108 (90 BASE) MCG/ACT AERS ALBUTEROL SULFATE Inactive HYDROCODONE-ACETAMINOPHEN 5-325 MG TABS 1 to 2 four times a day as needed for pain use until can be seen by specialist HYDROCODONE- ACETAMINOPHEN 5-325 MG TABS 923535 HYDROCODONE-ACETAMINOPHEN Inactive CEFDINIR 300 MG CAPS by mouth twice a day CEFDINIR 300 MG CAPS 179035 CEFDINIR Inactive PREDNISONE 20 MG TAB 2 tabs daily for 3 days, 1 tab daily for 3 days, 1/2 tab daily for 2 days PREDNISONE 20 MG TAB 441408 PREDNISONE Inactive BACTRIM DS 800-160 MG TABS 1 po BID x 7 days BACTRIM DS 800-160 MG TABS 19820521 SULFAMETHOXAZOLE-TRIMETHOPRIM Inactive DIFLUCAN 150 MG TABS 1 pill every other day x 2 doses DIFLUCAN 150 MG TABS 461682 FLUCONAZOLE Inactive BACTRIM DS 800-160 MG TABS 1 pill by mouth twice daily BACTRIM DS 800-160 MG TABS 19820521 SULFAMETHOXAZOLE-TRIMETHOPRIM Inactive KEFLEX 500 MG CAP 1 po TID x 10 days KEFLEX 500 MG CAP 901673 CEPHALEXIN Inactive Advance Directives Directive Description Start [...] % 11.6-14.8 platelet count 394 10^3/MM^3 10*3/mm3 340-070 6159/01/11 leukocyte count, blood 13.8 10^3/MM^3 10*3/mm3 4.6-10.2 mean corpuscular hemoglobin concentration, RBC 33.6 G/DL % 31.8- 35.4 red blood cell distribution width 14.4 % 11.6-14.8 platelet count 390 10^3/MM^3 10*3/mm3 028-564 7989/01/11 erythrocyte (RBC) count 4.46 10^6/MM^3 10*6/mm3 4.04-5.48 [...] Panel - Chemistry sodium, serum 139 mmol/L 966-081 8681/12/03 carbon dioxide, venous blood 28.5 mmol/L 21.0-32.0 [...] 5.5 % 4.3-6.0 cholesterol, serum 159 mg/dL 879-797 8173/12/03 triglyceride, serum, fasting 118 mg/dL 30-200 HDL [...] Panel - Chemistry sodium, serum 142 mmol/L 079-402 3795/06/08 creatinine, serum 0.75 mg/dL 0.55-1.30 alanine aminotransferase (SGPT), serum 49 U/L 12-78 aspartate aminotransferase (SGOT), serum 28 U/L 15-37 calcium, serum 9.4 mg/dL 8.5-10.1 bilirubin, serum, total 0.30 mg/dL 0.00-1.00 sodium, serum 140 mmol/L 338-244 5677/08/08 carbon dioxide, venous blood 33.7 mmol/L 21.0-32.0 potassium, serum 5.0 mmol/L 3.5-5.2 chloride, serum 103 mmol/L 98-107 blood glucose 80 mg/dL 65-110 urea nitrogen, blood 13 mg/dL 7-18 creatinine, serum 0.88 mg/dL 0.55-1.30 alanine aminotransferase (SGPT), serum 54 U/L 12-78 aspartate aminotransferase (SGOT), serum 29 U/L 15-37 calcium, serum 9.7 mg/dL 8.5-10.1 bilirubin, serum, total 0.30 mg/dL 0.00-1.00 sodium, serum 139 mmol/L 208-154 1343/12/22 creatinine, serum 0.90 mg/dL 0.55-1.30 alanine aminotransferase (SGPT), serum 38 U/L 12-78 aspartate aminotransferase (SGOT), serum 19 U/L 15-37 calcium, serum 8.6 mg/dL 8.5-10.1 bilirubin, serum, total 0.30 mg/dL 0.00-1.00 carbon dioxide, venous blood 26.8 mmol/L 21.0-32.0 potassium, serum 4.2 mmol/L 3.5-5.2 chloride, serum 103 mmol/L 98-107 blood glucose 115 mg/dL 65-110 urea nitrogen, blood 20 mg/dL 7-18 sodium, serum 139 mmol/L 731-677 9679/01/11 carbon dioxide, venous blood 26.6 mmol/L 21.0-32.0 [...] 65-110 urea nitrogen, blood 8 mg/dL 7-18 Lab Report: Comp. Metabolic Panel, Erythrocyte Sed Rate - Chemistry carbon dioxide, venous blood 25.4 mmol/L 21.0-32.0 potassium, serum 3.9 mmol/L 3.5-5.2 chloride, serum 105 mmol/L 98-107 blood glucose 98 mg/dL 65-110 urea nitrogen, blood 18 mg/dL 7-18 sodium, serum 139 mmol/L 337-150 1427/12/11 creatinine, serum 0.96 mg/dL 0.55-1.30 alanine aminotransferase [...] urine Negative Negative urine color Yellow Colorless;Lightyellow;Straw;Yellow specific gravity, urine 1.025 1.000-1.030 pH, urine, semiquantitative 5.5 5.0-8.5 appearance, urine Clear Clear Office Visit: Consult for Painful Lipoma - Chemistry cholesterol, target level 200 mg/dL triglyceride, target level 200 mg/dL HDL cholesterol, serum, target level 35 mg/dL LDL target level 100 mg/dL Encounters Code Encounter Date Provider Facility CPT-96248 Level 3 Est. Patient 15:50:44 CDT Vishal Hui MD [facility] CPT-37506 Level 3 Est. Patient 11:36:17 CDT Ahmet Carbajal MD [facility] CPT-35628 Level 3 Est. Patient 13:29:16 CDT Vishal Hui MD [facility] CPT-17862 Level 3 Est. Patient 14:27:52 CDT Neeraj Collins MD [facility] CPT-68306 Level 3 Est. Patient 08:56:03 CDT Luigi Martínez [facility] CPT-14954 Level 4 Est. Patient 12:11:48 CDT Fabiola Johnson [facility] CPT-99776 Level 3 New Patient 16:53:37 CDT Albert Caldera MD [facility] CPT-99197 Level 3 Est. Patient 11:25:49 CDT Renzo Thornton DO [facility] CPT-91918 Level 3 Est. Patient 15:22:01 CDT Ahmet Carbajal MD [facility] CPT-61173 Level 4 Est. Patient 09:00:51 [employer] Vishal Hui MD [facility] CPT-86390 Level 3 Est. Patient 11:37:33 [employer] Vishal Hui [facility] CPT-77033 Level 3 Est. Patient 08:41:09 [employer] Vishal Hui MD [facility] CPT-62523 Level 4 Est. Patient 10:19:35 [employer] Vishal Hui MD [facility] CPT-70367 Level 3 Est. Patient 13:35:45 CDT Vishal Hui MD [facility] CPT-93927 Level 4 Est. Patient 10:08:37 CDT Vishal Hui MD [facility] CPT-22894 Level 3 Est. Patient 11:22:10 CDT Vishal Hui MD [facility] CPT-75226 Level 3 Est. Patient 11:03:32 CDT Sahara Rodriguez MD, PhD [facility] CPT-23302 Level 3 Est. Patient 09:41:35 CDT Vishal Hui MD [facility] CPT-67799 Level 3 Est. Patient 12:00:41 CDT Neeraj Collins MD [facility] CPT-34822 Level 3 Est. Patient 09:16:24 CDT Vishal Hui MD [facility] CPT-29112 Level 4 Est. Patient 13:59:09 CDT Neeraj Collins MD [facility] CPT-69681 Level 3 Est. Patient 15:19:43 CDT Renzo W Norberto [facility] CPT-33367 Level 3 Est. Patient 18:10:26 CDT Sahara Rodriguez MD [facility] CPT-59146 Level 3 Est. Patient 14:49:50 CDT Vishal Hui MD [facility] CPT-96559 Level 4 Est. Patient 18:41:46 CDT Neeraj Collins MD [facility] CPT-19781 Level 4 Est. Patient 09:18:38 [employer] Vishal Hui MD [facility] CPT-74361 Level 3 Est. Patient 14:43:55 [employer] Vishal Hui MD [facility] CPT-30686 Level 3 Est. Patient 15:26:33 [employer] Sahara Rodriguez MD [facility] CPT-35230 Level 3 Est. Patient 10:32:14 [employer] Vishal Hui MD [facility] CPT-50929 Level 3 Est. Patient 15:12:52 [employer] Vishal Hiu MD [facility] CPT-44599 Level 4 Est. Patient 09:19:27 CDT Vishal Hui MD [facility] CPT-41151 Level 3 Est. Patient 15:53:00 CDT Renzo Thornton [facility] CPT-33275 Level 3 Est. Patient 15:50:30 CDT Renzo Thornton [facility] CPT-75865 Level 3 Est. Patient 16:55:24 CDT Vishal Hui MD [facility] Procedures Code Procedure Name Date Entry Date Standard Description CPT-62273 Abx/Therapy Injection 08:47:09 CDT CPT-14965 Abx/Therapy Injection 13:29:56 CDT CPT-85903 Abx/Therapy Injection 08:36:16 CDT CPT-18240 Wet Mount - LAB USE ONLY 17:44:58 CDT CPT-23660 UA w micro - LAB USE ONLY 17:44:58 CDT CPT-94247 CMP - LAB USE ONLY 17:44:58 CDT CPT-17554 Venipuncture Draw Fee 17:44:58 CDT CPT-28597 Cervical Min 4V - XRAY USE ONLY 09:01:40 CDT CPT-51319 Chest 2V Frontal and Lat - XRAY USE ONLY 11:06:31 CDT CPT-50084 EKG Trac and Interp - XRAY USE ONLY 11:31:43 CDT 08/26 CPT-J3420 Vitamin B12 1000mcg (Cyanocobalamin) 08:10:26 [employer] 04/12 CPT-50925 Abx/Therapy Injection 08:10:26 [employer] CPT-G0438 Initial Annual Wellness Exam 19:01:01 [employer] CPT-J3420 Vitamin B12 1000mcg (Cyanocobalamin) 16:57:46 CDT 08/14 CPT-32460 Recombivax HB Injection Suspension 5 MCG/0.5ML 08:37:50 [employer] CPT-22534 Immunization Single Admin 08:37:50 [employer] CPT-J3420 Vitamin B12 1000mcg (Cyanocobalamin) 08:32:16 [employer] 03/11 CPT-71273 Abx/Therapy Injection 08:32:16 [employer] CPT-88967 Chest 2V Frontal and Lat 11:46:38 [employer] CPT-30627 Venipuncture Draw Fee 09:12:45 [employer] CPT-J3420 Vitamin B12 1000mcg (Cyanocobalamin) 08:50:15 [employer] 02/08 CPT-55677 Abx/Therapy Injection 08:50:15 [employer] CPT-Cryo Cryotherapy 10:19:35 [employer] CPT-000 Give Appropriate Flu Vaccine 09:22:16 CDT CPT-J3420 Vitamin B12 1000mcg (Cyanocobalamin) 19:08:57 CDT 01/11 CPT-56380 Abx/Therapy Injection 19:08:57 CDT CPT-J3420 Vitamin B12 1000mcg (Cyanocobalamin) 08:19:08 CDT 12/11 CPT-13191 Abx/Therapy Injection 08:19:08 CDT CPT-J3420 Vitamin B12 1000mcg (Cyanocobalamin) 14:48:00 CDT 11/09 CPT-44166 Abx/Therapy Injection 14:47:59 CDT CPT-J3420 Vitamin B12 1000mcg (Cyanocobalamin) 08:34:04 CDT 10/09 CPT-27697 Abx/Therapy Injection 08:34:04 CDT CPT-J3420 Vitamin B12 1000mcg (Cyanocobalamin) 09:18:52 CDT 09/11 CPT-24234 Abx/Therapy Injection 09:18:52 CDT CPT-J3420 Vitamin B12 1000mcg (Cyanocobalamin) 08:35:44 CDT 09/04 CPT-09714 Abx/Therapy Injection 08:35:44 CDT CPT-59793 Immunization Single Admin 11:07:16 CDT CPT-45249 Hepatitis B adult IM 11:07:16 CDT CPT-J3420 Vitamin B12 1000mcg (Cyanocobalamin) 11:00:49 CDT 08/28 CPT-J1040 Depo Medrol 80 mg (Methyl Prednisolone Acetate) 11:00: 49 CDT CPT-06816 Abx/Therapy Injection 11:00:49 CDT CPT-J1040 Depo Medrol 80 mg (Methyl Prednisolone Acetate) 09:16: 23 CDT CPT-J3420 Vitamin B12 1000mcg (Cyanocobalamin) 08:27:05 CDT 08/20 CPT-16719 Abx/Therapy Injection 08:27:05 CDT CPT-05448 Recombivax HB Injection Suspension 5 MCG/0.5ML 10:00:41 CDT CPT-58960 Administration single or combination vaccine inc oral 10 :00:41 CDT CPT-54164 Sono transvag pelvis non OB uterus ovaries cervix 16:36: 57 CDT CPT-37473 LS spine comp w obliq 09:50:55 [employer] CPT-19865 Abd compl w upright 09:50:55 [employer] CPT-J1100 Decadron 4mg (Dexamethasone) 15:51:24 [employer] CPT-J1030 Depo Medrol 40 mg (Methyl Prednisolone Acetate) 15:51: 24 [employer] CPT-03864 Abx/Therapy Injection 15:51:24 [employer] CPT-J1100 Decadron 4mg (Dexamethasone) 15:26:33 [employer] CPT-J1030 Depo Medrol 40 mg (Methyl Prednisolone Acetate) 15:26: 33 [employer] CPT-13038 Sono retroperitoneal complete kidneys and bladder 17:15: 30 CDT CPT-30981 Abd compl w upright 16:09:25 CDT CPT-J1100 Decadron 8mg (Dexamethasone) 17:07:57 CDT CPT-23994 Abx/Therapy Injection 17:07:57 CDT CPT-J1100 Decadron 8mg (Dexamethasone) 16:55:24 CDT CPT-09957 Chest 2V Frontal and Lat 16:32:44 CDT
--- OUTSIDE RECORDS SUMMARY | 2016-11-04 16:23 | XMS REPORT | Clinical Summary ---
Author Author Admin, E Organization 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 May repeat dose x 1 in 2 hours if needed SUMATRIPTAN SUCCINATE 42870100656 Active Vishal Hui MD Active OXYCODONE HCL ER 10 MG ORAL T12A 1/2 tab by mouth every 4 hours prn OXYCODONE HCL 72596679034 Active Neeraj Collins MD Active METHYLPREDNISOLONE 4 MG ORAL TABS po daily METHYLPREDNISOLONE 79265742031 Active Vishal Hui MD Active LEVOFLOXACIN 500 MG ORAL TABS po daily LEVOFLOXACIN 22097565263 Active Vishal Hui MD Active CHANTIX STARTING MONTH EARNEST 0.5 MG X 11 & 1 MG X 42 TABS take as directed 2015 VARENICLINE TARTRATE 46775589516 Active Ahmet Carbajal MD Active CHANTIX 1 MG TABS 1 twice a day to help quit smoking VARENICLINE TARTRATE 98266649912 Active Ahmet Carbajal MD Active HYDROCODONE-ACETAMINOPHEN 5-325 MG TABS 1 to 2 four times a day as needed for pain use until can be seen by specialist HYDROCODONE- ACETAMINOPHEN 77585451284 No Longer Active Vishal Hui MD Active PROAIR HFA 108 (90 BASE) MCG/ACT AERS 2 puffs four times a day as needed 2015 ALBUTEROL SULFATE 31823669338 No Longer Active Vishal Hui MD Active PREDNISONE 20 MG TABS 2 daily for 5 days then 1 daily for 5 days PREDNISONE 06373752378 No Longer Active Vishal Hui MD Active ZITHROMAX Z-EARNEST 250 MG TABS 2 today and then 1 daily for 4 days AZITHROMYCIN 65122050873 No Longer Active Vishal Hui MD Active DICLOFENAC SODIUM 50 MG TBEC 1 tablet by mouth four times daily PRN Pain 2015 DICLOFENAC SODIUM 12608219706 Active Vishal Hui MD Active DICLOFENAC POTASSIUM TABS Take 1 tablet twice a day (pt. is not sure of the dose.) DICLOFENAC POTASSIUM TABS 08507572314 No Longer Active Vishal Hui MD Active VERAPAMIL HCL ER 120 MG ORAL CR-TABS Take 1 tablet by mouth twice a day. VERAPAMIL HCL 41395780387 Active Vishal Hui MD Active FLAGYL 500 MG TAB 1 tablet by mouth bid METRONIDAZOLE 80111130507 No Longer Active Vishal Hui MD Active FLUTICASONE PROPIONATE 50 MCG/ACT SUSP 2 sprays each nostril daily before bed. FLUTICASONE PROPIONATE 18569628547 Active Fabiola Johnson APRN Active ADZENYS XR-ODT 6.3 MG ORAL TBED 1 tab po daily for ADHD AMPHETAMINE 24279083559 Active Fabiola Johnson APRN Active BENADRYL 25 MG CAP 4 po at bedtime for insomnia DIPHENHYDRAMINE HCL 74686746642 Active Fabiola Johnson APRN Active KLONOPIN 1 MG ORAL TABS 1 tab po TID CLONAZEPAM 70491409281 Active Fabiola Johnson APRN Active VALIUM 5 MG TAB Take 1-2 tablets daily DIAZEPAM 46844899965 No Longer Active Fabiola Johnson APRN Active METOPROLOL TARTRATE 25 MG ORAL TABS 1/2 tablet twice daily for heart rate and blood pressure METOPROLOL TARTRATE 74481082711 No Longer Active Fabiola Johnson APRN Active MIRALAX ORAL POWD 17GMS DAILY IN WATER POLYETHYLENE GLYCOL 3350 51916843627 Active Vishal Hui MD Active VIIBRYD 10 MG ORAL TABS Take 1 tablet once a day VILAZODONE HCL 54335122581 Active Ahmet Carbajal MD Active MIRALAX PACK 1 po qd PRN Constipation POLYETHYLENE GLYCOL 3350 93991447811 No Longer Active Ahmet Carbajal MD Active MINIPRESS 2 MG CAPS 4 cap po at night PRAZOSIN HCL 30062354174 No Longer Active Ahmet Carbajal MD Active PIROXICAM 20 MG CAPS 1 cap po qd PRN Pain PIROXICAM 88552268186 No Longer Active Ahmet Carbajal MD Active TRAMADOL HCL 50 MG TABS 1-2 po TID PRN Pain TRAMADOL HCL 30192413925 No Longer Active Ahmet Carbajal MD Active METOPROLOL TARTRATE 50 MG TAB 1 po bid METOPROLOL TARTRATE 88423138041 No Longer Active Ahmet Carbajal MD Active ABILIFY 15 MG ORAL TABS 1 tab daily ARIPIPRAZOLE 99383007994 No Longer Active Ahmet Carbajal MD Active PROZAC 20 MG ORAL CAPS 1 tab daily FLUOXETINE HCL 05459372516 No Longer Active Ahmet Carbajal MD Active AMBIEN 5 MG ORAL TABS 1 tab at bedtime ZOLPIDEM TARTRATE 74775244808 No Longer Active Ahmet Carbajal MD Active PREDNISONE 20 MG TAB 2 tabs daily for 4 days, 1 tab daily for 4 days, 1/2 tab daily for 4 days PREDNISONE 84588987994 No Longer Active Ahmet Carbajal MD Active KEFLEX 500 MG CAP 1 po TID x 10 days CEPHALEXIN 20027465812 No Longer Active Vishal Hui MD Active TOPAMAX 50 MG ORAL TABS 1 tab twice daily TOPIRAMATE 89030499396 Active Vishal Hui MD Active SAPHRIS 5 MG SUBL 1 po bid ASENAPINE MALEATE 20004236079 No Longer Active Luigi Martínez APRN Active LATUDA 80 MG TABS Take one by mouth daily LURASIDONE HCL 08835213057 No Longer Active Luigi Martínez APRN Active AMLODIPINE BESYLATE 5 MG TABS 1 tablet by mouth daily AMLODIPINE BESYLATE 25486816328 No Longer Active Luigi Martínez APRN Active AMITRIPTYLINE HCL 100 MG TAB one at hs AMITRIPTYLINE HCL 85704282195 No Longer Active Vishal Hui MD Active TRAZODONE HCL 100 MG TAB take 1 at bedtime TRAZODONE HCL 74569497707 No Longer Active Vishal Hui MD Active VYVANSE 40 MG CAPS 1 daily, LISDEXAMFETAMINE DIMESYLATE 42322789237 No Longer Active Vishal Hui MD Active IBUPROFEN 600 MG TAB 1 po TID PRN IBUPROFEN 15019765854 No Longer Active Vishal Hui MD Active PROZAC 20 MG CAP Take one by mouth daily FLUOXETINE HCL 68129219860 No Longer Active Vishal Hui MD Active ZOFRAN 4 MG TABS 1 po q6hr PRN Nausea ONDANSETRON HCL Active Vishal Hui MD Active BACTRIM DS 800-160 MG TABS 1 pill by mouth twice daily SULFAMETHOXAZOLE-TRIMETHOPRIM 65772717073 No Longer Active Sahara Rodriguez MD PhD Active DIFLUCAN 150 MG TAB 1 tablet by mouth daily FLUCONAZOLE 22721553534 No Longer Active Vishal Hui MD Active TIZANIDINE HCL 4 MG TABS 1 po q6hr PRN Muscle Spasm/Back Pain TIZANIDINE HCL 72816139364 Active Vishal Hui MD Active CLINDAMYCIN HCL 150 MG CAPS 1 four times a day CLINDAMYCIN HCL 54066733556 No Longer Active Neeraj Collins MD Active KEFLEX 500 MG ORAL CAPS 1 cap QID by mouth CEPHALEXIN 42513240303 No Longer Active Neeraj Collins MD Active DIFLUCAN 150 MG TABS 1 pill every other day x 2 doses FLUCONAZOLE 68332740288 No Longer Active Sahara Rodriguez MD PhD Active MELATONIN 3 MG CAPS 2 po q hs MELATONIN 86029650600 No Longer Active Sahara Rodriguez MD PhD Active MULTIVITAMINS CAPS Take one by mouth daily MULTIPLE VITAMIN 31127032669 No Longer Active Sahara Rodriguez MD PhD Active BACTRIM DS 800-160 MG TAB 1 tab by mouth twice daily TRIMETHOPRIM-SULFAMETHOXAZOLE 64466837035 No Longer Active Sahara Rodriguez MD PhD Active [facility] PROBIOTIC ORAL CHEW 2 daily po PROBIOTIC PRODUCT 69292504328 No Longer Active Sahara Rodriguez MD PhD Active BACTRIM DS 800-160 MG TABS 1 po BID x 7 days SULFAMETHOXAZOLE-TRIMETHOPRIM 29416997800 No Longer Active Vishal Hui MD Active CHANTIX STARTING MONTH EARNEST 0.5 MG X 11 & 1 MG X 42 TABS 0.5mg daily for 3 days , then 0.5mg BID for 4 days, then 1mg BID VARENICLINE TARTRATE 18548272335 No Longer Active TAMARA Gray Active VERAPAMIL HCL CR 120 MG TAB CR 1 po bid VERAPAMIL HCL 17804522762 No Longer Active Vishal Hui MD Active METOPROLOL SUCCINATE 50 MG TB24 1 tablet by mouth daily METOPROLOL SUCCINATE 76858237736 No Longer Active Vishal Hui MD Active SAPHRIS 10 MG SUBL 1 tab po bid ASENAPINE MALEATE 32123649881 No Longer Active Vishal Hui MD Active LISINOPRIL 20 MG TABS 1 tab po qd LISINOPRIL 98639204839 No Longer Active Vishal Hui MD Active LATUDA 20 MG TABS Take one by mouth daily LURASIDONE HCL 94688255205 No Longer Active Vishal Hui MD Active TRAZODONE HCL 50 MG TABS 1/2 tab po qd prn for anxiety TRAZODONE HCL 52573032023 No Longer Active Vishal Hui MD Active OMEPRAZOLE 20 MG TBEC 1 po q a.m. 30min prior to first food intake OMEPRAZOLE 92597063347 Active Vishal Hui MD Active RANITIDINE HCL 150 MG CAPS 1 twice a day RANITIDINE HCL 61257098218 Active Luigi Martínez APRN Active LINZESS 290 MCG CAPS Take one by mouth daily LINACLOTIDE 39452621063 No Longer Active Vishal Hui MD Active SAPHRIS 5 MG SUBL 1 tab po qd ASENAPINE MALEATE 09645304501 No Longer Active Vishal Hui MD Active ZALEPLON 10 MG CAPS 1 cap po every other night ZALEPLON 54826392480 No Longer Active Vishal Hui MD Active LYRICA 50 MG CAPS 1 tab po TID PREGABALIN 29232675576 No Longer Active Vishal Hui MD Active LORATADINE 10 MG TABS 1 tab po qd LORATADINE 29042285661 No Longer Active Vishal Hui MD Active VERAPAMIL HCL ER 180 MG CR-TABS 1 tab po bid VERAPAMIL HCL 28214859166 No Longer Active Vishal Hui MD Active MIRALAX POWD 1 capfull once daily POLYETHYLENE GLYCOL 3350 07830770768 No Longer Active Vishal Hui MD Active PREDNISONE 20 MG TABS 1 tab po qd PREDNISONE 79392333776 No Longer Active Renzo Thornton DO Active LEVOFLOXACIN 500 MG TABS 1 tab po qd LEVOFLOXACIN 04852054001 No Longer Active Renzo Thornton DO Active BUSPIRONE HCL 15 MG TABS 1 tab po TID BUSPIRONE HCL 62316974798 No Longer Active Renzo Thornton DO Active BENZTROPINE MESYLATE 1 MG TABS 1 tab po qd BENZTROPINE MESYLATE 62639043836 No Longer Active Renzo Thornton DO Active ATENOLOL 25 MG TABS 1 tab po qd ATENOLOL 78530279733 No Longer Active Renzo Thornton DO Active ESCITALOPRAM OXALATE 20 MG TABS 1 tab po qd ESCITALOPRAM OXALATE 00250195693 No Longer Active Renzo Thornton DO Active ADVAIR DISKUS 250-50 MCG/DOSE AEPB 1 puff BID FLUTICASONE-SALMETEROL 86908319350 No Longer Active Renzo Thornton DO Active PREDNISONE 20 MG TAB 2 tabs daily for 3 days, 1 tab daily for 3 days, 1/2 tab daily for 2 days PREDNISONE 74743681600 No Longer Active Vishal Hui MD Active CEFDINIR 300 MG CAPS by mouth twice a day CEFDINIR 31026702365 No Longer Active Vishal Hui MD Active LANSOPRAZOLE 30 MG CPDR 1 cap po qd LANSOPRAZOLE 25870065187 No Longer Active Vishal Hui MD Active BACLOFEN 20 MG TABS 1 tab po tid BACLOFEN 21701495954 No Longer Active Vishal Hui MD Active ADVAIR DISKUS 250-50 MCG/DOSE AEPB 1 puff BID ADVAIR DISKUS 250-50 MCG/DOSE AEPB FLUTICASONE-SALMETEROL Inactive ESCITALOPRAM OXALATE 20 MG TABS 1 tab po qd ESCITALOPRAM OXALATE 20 MG TABS 400939 ESCITALOPRAM OXALATE Inactive ATENOLOL 25 MG TABS 1 tab po qd ATENOLOL 25 MG TABS 169382 ATENOLOL Inactive BENZTROPINE MESYLATE 1 MG TABS 1 tab po qd BENZTROPINE MESYLATE 1 MG TABS 592677 BENZTROPINE MESYLATE Inactive BUSPIRONE HCL 15 MG TABS 1 tab po TID BUSPIRONE HCL 15 MG TABS 487172 BUSPIRONE HCL Inactive LEVOFLOXACIN 500 MG TABS 1 tab po qd LEVOFLOXACIN 500 MG TABS 371543 LEVOFLOXACIN Inactive PREDNISONE 20 MG TABS 1 tab po qd PREDNISONE 20 MG TABS 507117 PREDNISONE Inactive MIRALAX POWD 1 capfull once daily MIRALAX POWD 909422 POLYETHYLENE GLYCOL 3350 Inactive VERAPAMIL HCL ER 180 MG CR-TABS 1 tab po bid VERAPAMIL HCL ER 180 MG CR-TABS VERAPAMIL HCL Inactive LORATADINE 10 MG TABS 1 tab po qd LORATADINE 10 MG TABS 591215 LORATADINE Inactive LYRICA 50 MG CAPS 1 tab po TID LYRICA 50 MG CAPS PREGABALIN Inactive ZALEPLON 10 MG CAPS 1 cap po every other night ZALEPLON 10 MG CAPS 145682 ZALEPLON Inactive SAPHRIS 5 MG SUBL 1 tab po qd SAPHRIS 5 MG SUBL ASENAPINE MALEATE Inactive TRAZODONE HCL 50 MG TABS 1/2 tab po qd prn for anxiety TRAZODONE HCL 50 MG TABS 227422 TRAZODONE HCL Inactive LATUDA 20 MG TABS Take one by mouth daily LATUDA 20 MG TABS LURASIDONE HCL Inactive LISINOPRIL 20 MG TABS 1 tab po qd LISINOPRIL 20 MG TABS 443917 LISINOPRIL Inactive SAPHRIS 10 MG SUBL 1 [...] twice daily BACTRIM DS 800-160 MG TAB 737925 TRIMETHOPRIM-SULFAMETHOXAZOLE Inactive MULTIVITAMINS CAPS Take one by mouth daily MULTIVITAMINS CAPS MULTIPLE VITAMIN Inactive MELATONIN 3 MG CAPS 2 po q hs MELATONIN 3 MG CAPS 341355 MELATONIN Inactive KEFLEX 500 MG ORAL CAPS 1 cap QID by mouth KEFLEX 500 MG ORAL CAPS 553784 CEPHALEXIN Inactive CLINDAMYCIN HCL 150 MG CAPS 1 four times a day CLINDAMYCIN HCL 150 MG CAPS 296949 CLINDAMYCIN HCL Inactive DIFLUCAN 150 MG TAB 1 tablet by mouth daily DIFLUCAN 150 MG TAB 516946 FLUCONAZOLE Inactive PROZAC 20 MG CAP Take one by mouth daily PROZAC 20 MG CAP 141874 FLUOXETINE HCL Inactive IBUPROFEN 600 MG TAB 1 po TID PRN IBUPROFEN 600 MG TAB 637993 IBUPROFEN Inactive VYVANSE 40 MG CAPS 1 daily, VYVANSE 40 MG CAPS LISDEXAMFETAMINE DIMESYLATE Inactive TRAZODONE HCL 100 MG TAB take 1 at bedtime TRAZODONE HCL 100 MG TAB 786071 TRAZODONE HCL Inactive AMITRIPTYLINE HCL 100 MG TAB one at hs AMITRIPTYLINE HCL 100 MG TAB 801980 AMITRIPTYLINE HCL Inactive AMLODIPINE BESYLATE 5 MG TABS 1 tablet by mouth daily AMLODIPINE BESYLATE 5 MG TABS 884802 AMLODIPINE BESYLATE Inactive LATUDA 80 MG TABS Take one by mouth daily LATUDA 80 MG TABS LURASIDONE HCL Inactive SAPHRIS 5 MG SUBL 1 po bid SAPHRIS 5 MG SUBL ASENAPINE MALEATE Inactive PREDNISONE 20 MG TAB 2 tabs daily for 4 days, 1 tab daily for 4 days, 1/2 tab daily for 4 days PREDNISONE 20 MG TAB 079622 PREDNISONE Inactive AMBIEN 5 MG ORAL TABS 1 tab at bedtime AMBIEN 5 MG ORAL TABS 336858 ZOLPIDEM TARTRATE Inactive PROZAC 20 MG ORAL CAPS 1 tab daily PROZAC 20 MG ORAL CAPS 806303 FLUOXETINE HCL Inactive ABILIFY 15 MG ORAL TABS 1 tab daily ABILIFY 15 MG ORAL TABS 585097 ARIPIPRAZOLE Inactive METOPROLOL TARTRATE 50 MG TAB 1 po bid METOPROLOL TARTRATE 50 MG TAB 039986 METOPROLOL TARTRATE Inactive TRAMADOL HCL 50 MG TABS 1-2 po TID PRN Pain TRAMADOL HCL 50 MG TABS 341557 TRAMADOL HCL Inactive PIROXICAM 20 MG CAPS 1 cap po qd PRN Pain PIROXICAM 20 MG CAPS 395668 PIROXICAM Inactive MINIPRESS 2 MG CAPS 4 cap po at night MINIPRESS 2 MG CAPS 804384 PRAZOSIN HCL Inactive MIRALAX PACK 1 po qd PRN Constipation MIRALAX PACK 265729 POLYETHYLENE GLYCOL 3350 Inactive METOPROLOL TARTRATE 25 MG ORAL TABS 1/2 tablet twice daily for heart rate and blood pressure METOPROLOL TARTRATE 25 MG ORAL TABS 678415 METOPROLOL TARTRATE Inactive VALIUM 5 MG TAB Take 1-2 tablets daily VALIUM 5 MG TAB 660247 DIAZEPAM Inactive FLAGYL 500 MG TAB 1 tablet by mouth bid FLAGYL 500 MG TAB 470432 METRONIDAZOLE Inactive DICLOFENAC POTASSIUM TABS Take 1 tablet twice a day (pt. is not sure of the dose.) DICLOFENAC POTASSIUM TABS DICLOFENAC POTASSIUM TABS Inactive ZITHROMAX Z-EARNEST 250 MG TABS 2 today and then 1 daily for 4 days ZITHROMAX Z-EARNEST 250 MG TABS 0883327 AZITHROMYCIN Inactive PREDNISONE 20 MG TABS 2 daily for 5 days then 1 daily for 5 days PREDNISONE 20 MG TABS 972336 PREDNISONE Inactive PROAIR HFA 108 (90 BASE) MCG/ACT AERS 2 puffs four times a day as needed 2015 PROAIR HFA 108 (90 BASE) MCG/ACT AERS ALBUTEROL SULFATE Inactive HYDROCODONE-ACETAMINOPHEN 5-325 MG TABS 1 to 2 four times a day as needed for pain use until can be seen by specialist HYDROCODONE- ACETAMINOPHEN 5-325 MG TABS 808203 HYDROCODONE-ACETAMINOPHEN Inactive TESSALON PERLES 100 MG CAP 1 to 2 tablets by mouth 3 times daily as needed for cough TESSALON PERLES 100 MG CAP 590138 BENZONATATE Inactive CEFDINIR 300 MG CAPS by mouth twice a day CEFDINIR 300 MG CAPS 785955 CEFDINIR Inactive PREDNISONE 20 MG TAB 2 tabs daily for 3 days, 1 tab daily for 3 days, 1/2 tab daily for 2 days PREDNISONE 20 MG TAB 842089 PREDNISONE Inactive BACTRIM DS 800-160 MG TABS 1 po BID x 7 days BACTRIM DS 800-160 MG TABS 19820521 SULFAMETHOXAZOLE-TRIMETHOPRIM Inactive DIFLUCAN 150 MG TABS 1 pill every other day x 2 doses DIFLUCAN 150 MG TABS 497496 FLUCONAZOLE Inactive BACTRIM DS 800-160 MG TABS 1 pill by mouth twice daily BACTRIM DS 800-160 MG TABS 19820521 SULFAMETHOXAZOLE-TRIMETHOPRIM Inactive KEFLEX 500 MG CAP 1 po TID x 10 days KEFLEX 500 MG CAP 277083 CEPHALEXIN Inactive Advance Directives Directive Description Start [...] % 11.6-14.8 platelet count 394 10^3/MM^3 10*3/mm3 085-260 3599/01/11 leukocyte count, blood 13.8 10^3/MM^3 10*3/mm3 4.6-10.2 [...] Panel - Chemistry sodium, serum 139 mmol/L 110-935 8324/12/03 carbon dioxide, venous blood 28.5 mmol/L 21.0-32.0 [...] 5.5 % 4.3-6.0 cholesterol, serum 159 mg/dL 172-294 6232/12/03 triglyceride, serum, fasting 118 mg/dL 30-200 HDL [...] Panel - Chemistry sodium, serum 139 mmol/L 362-700 4919/12/22 carbon dioxide, venous blood 26.8 mmol/L 21.0-32.0 potassium, serum 4.2 mmol/L 3.5-5.2 chloride, serum 103 mmol/L 98-107 blood glucose 115 mg/dL 65-110 urea nitrogen, blood 20 mg/dL 7-18 creatinine, serum 0.90 mg/dL 0.55-1.30 alanine aminotransferase (SGPT), serum 38 U/L 12-78 aspartate aminotransferase (SGOT), serum 19 U/L 15-37 calcium, serum 8.6 mg/dL 8.5-10.1 bilirubin, serum, total 0.30 mg/dL 0.00-1.00 sodium, serum 139 mmol/L 070-747 5835/01/11 carbon dioxide, venous blood 26.6 mmol/L 21.0-32.0 potassium, serum 4.1 mmol/L 3.5-5.2 chloride, serum 100 mmol/L 98-107 blood glucose 86 mg/dL 65-110 urea nitrogen, blood 16 mg/dL 7-18 creatinine, serum 1.00 mg/dL 0.55-1.30 alanine aminotransferase (SGPT), serum 48 U/L 12-78 aspartate aminotransferase (SGOT), serum 17 U/L 15-37 calcium, serum 9.1 mg/dL 8.5-10.1 bilirubin, serum, total 0.40 mg/dL 0.00-1.00 sodium, serum 142 mmol/L 648-399 3749/06/08 carbon dioxide, venous blood 27.6 mmol/L 21.0-32.0 potassium, serum 4.0 mmol/L 3.5-5.2 chloride, serum 105 mmol/L 98-107 blood glucose 95 mg/dL 65-110 urea nitrogen, blood 8 mg/dL 7-18 creatinine, serum 0.75 mg/dL 0.55-1.30 alanine aminotransferase (SGPT), serum 49 U/L 12-78 aspartate aminotransferase (SGOT), serum 28 U/L 15-37 calcium, serum 9.4 mg/dL 8.5-10.1 bilirubin, serum, total 0.30 mg/dL 0.00-1.00 sodium, serum 140 mmol/L 902-409 3441/08/08 carbon dioxide, venous blood 33.7 mmol/L 21.0-32.0 [...] Rate - Chemistry sodium, serum 139 mmol/L 139-106 6915/12/11 carbon dioxide, venous blood 25.4 mmol/L [...] mg/dL Encounters Code Encounter Date Provider Facility CPT-80011 Level 3 Est. Patient 13:59:59 CDT Luigi Martínez [facility] CPT-98233 Level 3 Est. Patient 18:18:53 CDT Neeraj Collins MD [facility] CPT-46473 Level 3 Est. Patient 15:50:44 CDT Vishal Hui MD [facility] CPT-58151 Level 3 Est. Patient 11:36:17 CDT Ahmet Carbajal MD [facility] CPT-88292 Level 3 Est. Patient 13:29:16 CDT Vishal Hui MD [facility] CPT-84571 Level 3 Est. Patient 14:27:52 CDT Neeraj Collins MD [facility] CPT-30711 Level 3 Est. Patient 08:56:03 CDT Luigi Martínez [facility] CPT-38896 Level 4 Est. Patient 12:11:48 CDT Fabiola Johnson [facility] CPT-84043 Level 3 New Patient 16:53:37 CDT Albert Caldera MD [facility] CPT-45492 Level 3 Est. Patient 11:25:49 CDT Renzo W Norberto [facility] CPT-46318 Level 3 Est. Patient 15:22:01 CDT Ahmet Carbajal MD [facility] CPT-50123 Level 4 Est. Patient 09:00:51 RELIEF CAPTAIN Vishal Hui MD [facility] CPT-44030 Level 3 Est. Patient 11:37:33 RELIEF CAPTAIN Vishal Hui MD [facility] CPT-65056 Level 3 Est. Patient 08:41:09 RELIEF CAPTAIN Vishal Hui MD [facility] CPT-24873 Level 4 Est. Patient 10:19:35 RELIEF CAPTAIN Vishal Hui MD [facility] CPT-95616 Level 3 Est. Patient 13:35:45 CDT Vishal Hui MD [facility] CPT-61286 Level 4 Est. Patient 10:08:37 CDT Vishal Hui MD [facility] CPT-39954 Level 3 Est. Patient 11:22:10 CDT Vishal Hui MD [facility] CPT-85827 Level 3 Est. Patient 11:03:32 CDT Sahara Rodriguez MD PhD [facility]-70289 Level 3 Est. Patient 09:41:35 CDT Vishal Hui MD [facility] CPT-72194 Level 3 Est. Patient 12:00:41 CDT Neeraj Collins MD [facility] CPT-10245 Level 3 Est. Patient 09:16:24 CDT Vishal Hui MD [facility] CPT-68744 Level 4 Est. Patient 13:59:09 CDT Neeraj Collins MD [facility] [place][note 2]-50950 Level 3 Est. Patient 15:19:43 CDT Renzo Thornton DO [facility] CPT-36406 Level 3 Est. Patient 18:10:26 CDT Sahara Rodriguez MD PhD [facility] CPT-14828 Level 3 Est. Patient 14:49:50 CDT Vishal Hui MD [facility] CPT-84768 Level 4 Est. Patient 18:41:46 CDT Neeraj Collins MD [facility] CPT-49696 Level 4 Est. Patient 09:18:38 RELIEF CAPTAIN Vishal Hui MD [facility] CPT-68329 Level 3 Est. Patient 14:43:55 RELIEF CAPTAIN Vishal Hui MD [facility] CPT-45767 Level 3 Est. Patient 15:26:33 RELIEF CAPTAIN Sahara Rodriguez MD PhD [facility] CPT-51903 Level 3 Est. Patient 10:32:14 RELIEF CAPTAIN Vishal Hui MD [facility] CPT-77834 Level 3 Est. Patient 15:12:52 RELIEF CAPTAIN Vishal Hui MD [facility] CPT-87277 Level 4 Est. Patient 09:19:27 CDT Vishal Hui MD [facility] CPT-06961 Level 3 Est. Patient 15:53:00 CDT Renzo Thornton [facility] CPT-67115 Level 3 Est. Patient 15:50:30 CDT Renzo Thornton [facility] CPT-09971 Level 3 Est. Patient 16:55:24 CDT Vishal Hui MD [facility] Procedures Code Procedure Name Date Entry Date Standard Description CPT-50215 UA w micro - LAB USE ONLY 16:21:13 CDT CPT-58886 Wet Mount - LAB USE ONLY 16:21:13 CDT CPT-69053 First Vx - Ix admin for Medicare patients 14:37:47 CDT CPT-28890 Fluzone Preservative Free Intramuscular Suspension 14:37 :47 CDT CPT-68855 Abx/Therapy Injection 13:54:22 CDT CPT-51113 Abx/Therapy Injection 08:47:09 CDT CPT-38025 Abx/Therapy Injection 13:29:56 CDT CPT-75239 Abx/Therapy Injection 08:36:16 CDT CPT-29073 Wet Mount - LAB USE ONLY 17:44:58 CDT CPT-71795 UA w micro - LAB USE ONLY 17:44:58 CDT CPT-08024 CMP - LAB USE ONLY 17:44:58 CDT CPT-29573 Venipuncture Draw Fee 17:44:58 CDT CPT-35097 Cervical Min 4V - XRAY USE ONLY 09:01:40 CDT CPT-65005 Chest 2V Frontal and Lat - XRAY USE ONLY 11:06:31 CDT CPT-56887 EKG Trac and Interp - XRAY USE ONLY 11:31:43 CDT 08/26 CPT-J3420 Vitamin B12 1000mcg (Cyanocobalamin) 08:10:26 RELIEF CAPTAIN 04/12 CPT-16908 Abx/Therapy Injection 08:10:26 RELIEF CAPTAIN CPT-G0438 Initial Annual Wellness Exam 19:01:01 RELIEF CAPTAIN CPT-J3420 Vitamin B12 1000mcg (Cyanocobalamin) 16:57:46 CDT 08/14 CPT-00121 Recombivax HB Injection Suspension 5 MCG/0.5ML 08:37:50 RELIEF CAPTAIN CPT-52094 Immunization Single Admin 08:37:50 RELIEF CAPTAIN CPT-J3420 Vitamin B12 1000mcg (Cyanocobalamin) 08:32:16 RELIEF CAPTAIN 03/11 CPT-83295 Abx/Therapy Injection 08:32:16 RELIEF CAPTAIN CPT-99048 Chest 2V Frontal and Lat 11:46:38 RELIEF CAPTAIN CPT-83160 Venipuncture Draw Fee 09:12:45 RELIEF CAPTAIN CPT-J3420 Vitamin B12 1000mcg (Cyanocobalamin) 08:50:15 RELIEF CAPTAIN 02/08 CPT-33888 Abx/Therapy Injection 08:50:15 RELIEF CAPTAIN CPT-Cryo Cryotherapy 10:19:35 RELIEF CAPTAIN CPT-000 Give Appropriate Flu Vaccine 09:22:16 CDT CPT-J3420 Vitamin B12 1000mcg (Cyanocobalamin) 19:08:57 CDT 01/11 CPT-49827 Abx/Therapy Injection 19:08:57 CDT CPT-J3420 Vitamin B12 1000mcg (Cyanocobalamin) 08:19:08 CDT 12/11 CPT-63702 Abx/Therapy Injection 08:19:08 CDT CPT-J3420 Vitamin B12 1000mcg (Cyanocobalamin) 14:48:00 CDT 11/09 CPT-60389 Abx/Therapy Injection 14:47:59 CDT CPT-J3420 Vitamin B12 1000mcg (Cyanocobalamin) 08:34:04 CDT 10/09 CPT-81396 Abx/Therapy Injection 08:34:04 CDT CPT-J3420 Vitamin B12 1000mcg (Cyanocobalamin) 09:18:52 CDT 09/11 CPT-64056 Abx/Therapy Injection 09:18:52 CDT CPT-J3420 Vitamin B12 1000mcg (Cyanocobalamin) 08:35:44 CDT 09/04 CPT-63789 Abx/Therapy Injection 08:35:44 CDT CPT-98349 Immunization Single Admin 11:07:16 CDT CPT-24726 Hepatitis B adult IM 11:07:16 CDT CPT-J3420 Vitamin B12 1000mcg (Cyanocobalamin) 11:00:49 CDT 08/28 CPT-J1040 Depo Medrol 80 mg (Methyl Prednisolone Acetate) 11:00: 49 CDT CPT-27596 Abx/Therapy Injection 11:00:49 CDT CPT-J1040 Depo Medrol 80 mg (Methyl Prednisolone Acetate) 09:16: 23 CDT CPT-J3420 Vitamin B12 1000mcg (Cyanocobalamin) 08:27:05 CDT 08/20 CPT-67910 Abx/Therapy Injection 08:27:05 CDT CPT-46947 Recombivax HB Injection Suspension 5 MCG/0.5ML 10:00:41 CDT CPT-73868 Administration single or combination vaccine inc oral 10 :00:41 CDT CPT-32210 Sono transvag pelvis non OB uterus ovaries cervix 16:36: 57 CDT CPT-95992 LS spine comp w obliq 09:50:55 RELIEF CAPTAIN CPT-51927 Abd compl w upright 09:50:55 RELIEF CAPTAIN CPT-J1100 Decadron 4mg (Dexamethasone) 15:51:24 RELIEF CAPTAIN CPT-J1030 Depo Medrol 40 mg (Methyl Prednisolone Acetate) 15:51: 24 RELIEF CAPTAIN CPT-97878 Abx/Therapy Injection 15:51:24 RELIEF CAPTAIN CPT-J1100 Decadron 4mg (Dexamethasone) 15:26:33 RELIEF CAPTAIN CPT-J1030 Depo Medrol 40 mg (Methyl Prednisolone Acetate) 15:26: 33 RELIEF CAPTAIN CPT-14530 Sono retroperitoneal complete kidneys and bladder 17:15: 30 CDT CPT-71751 Abd compl w upright 16:09:25 CDT CPT-J1100 Decadron 8mg (Dexamethasone) 17:07:57 CDT CPT-02510 Abx/Therapy Injection 17:07:57 CDT CPT-J1100 Decadron 8mg (Dexamethasone) 16:55:24 CDT CPT-33934 Chest 2V Frontal and Lat 16:32:44 CDT
--- OUTSIDE RECORDS SUMMARY | 2016-11-04 16:25 | XMS REPORT | Clinical Summary ---
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 Dependence on other enabling machines and [...] 1 po TID x 10 days CEPHALEXIN 08515032680 No Longer Active Vishal Hui MD Active ABILIFY MAINTENA 400 MG IM SUSR Injection once per month ARIPIPRAZOLE 54423718879 Active Juliet Kimbrough APRN Active PREDNISONE 20 MG TAB 2 tabs daily for 4 days, 1 tab daily for 4 days, 1/2 tab daily for 4 days PREDNISONE 15294146513 Active Vishal Hui MD Active IMITREX 50 MG ORAL TABS 1/2 tab every 6 hours prn SUMATRIPTAN SUCCINATE 00010329076 Active Luigi Martínez APRN Active AMBIEN 5 MG ORAL TABS 1 tab at bedtime ZOLPIDEM TARTRATE 48016649297 Active Luigi Martínez APRN Active PROZAC 20 MG ORAL CAPS 1 tab daily FLUOXETINE HCL 44207540540 Active Luigi Martínez APRN Active ABILIFY 15 MG ORAL TABS 1 tab daily ARIPIPRAZOLE 80634780832 Active Luigi Martínez APRN Active MINIPRESS 2 MG CAPS 4 cap po at night PRAZOSIN HCL 47947423766 Active Luigi Martínez APRN Active TOPAMAX 50 MG ORAL TABS 1 tab twice daily TOPIRAMATE 95706957314 Active Vishal Hui MD Active SAPHRIS 5 MG SUBL 1 po bid ASENAPINE MALEATE 78123375941 No Longer Active Luigi Martínez APRN Active LATUDA 80 MG TABS Take one by mouth daily LURASIDONE HCL 95044301815 No Longer Active Luigi Martínez APRN Active AMLODIPINE BESYLATE 5 MG TABS 1 tablet by mouth daily AMLODIPINE BESYLATE 30371805758 No Longer Active Luigi Martínez APRN Active AMITRIPTYLINE HCL 100 MG TAB one at hs AMITRIPTYLINE HCL 38954595534 No Longer Active Vishal Hui MD Active TRAZODONE HCL 100 MG TAB take 1 at bedtime TRAZODONE HCL 34221695990 No Longer Active Vishal Hui MD Active VYVANSE 40 MG CAPS 1 daily, LISDEXAMFETAMINE DIMESYLATE 00556881733 No Longer Active Vishal Hui MD Active IBUPROFEN 600 MG TAB 1 po TID PRN IBUPROFEN 41262220710 No Longer Active Vishal Hui MD Active MIRALAX PACK 1 po qd PRN Constipation POLYETHYLENE GLYCOL 3350 33730508698 Active Vishal Hui MD Active PROZAC 20 MG CAP Take one by mouth daily FLUOXETINE HCL 23291773229 No Longer Active Vishal Hui MD Active ZOFRAN 4 MG TABS 1 po q6hr PRN Nausea ONDANSETRON HCL Active Vishal Hui MD Active BACTRIM DS 800-160 MG TABS 1 pill by mouth twice daily SULFAMETHOXAZOLE-TRIMETHOPRIM 34404174962 No Longer Active Sahara Rodriguez MD PhD Active DIFLUCAN 150 MG TAB 1 tablet by mouth daily FLUCONAZOLE 50616410657 No Longer Active Vishal Hui MD Active TIZANIDINE HCL 4 MG TABS 1 po q6hr PRN Muscle Spasm/Back Pain TIZANIDINE HCL 36889946973 Active Luigi Martínez APRN Active CLINDAMYCIN HCL 150 MG CAPS 1 four times a day CLINDAMYCIN HCL 78348850007 No Longer Active Neeraj Collins MD Active KEFLEX 500 MG ORAL CAPS 1 cap QID by mouth CEPHALEXIN 57205060297 No Longer Active Neeraj Collins MD Active DIFLUCAN 150 MG TABS 1 pill every other day x 2 doses FLUCONAZOLE 20949494874 No Longer Active Sahara Rodriguez MD PhD Active MELATONIN 3 MG CAPS 2 po q hs MELATONIN 46939505329 No Longer Active Sahara Rodriguez MD PhD Active MULTIVITAMINS CAPS Take one by mouth daily MULTIPLE VITAMIN 53014112857 No Longer Active Sahara Rodriguez MD PhD Active BACTRIM DS 800-160 MG TAB 1 tab by mouth twice daily TRIMETHOPRIM-SULFAMETHOXAZOLE 46643705587 No Longer Active Sahara Rodriguez MD PhD Active [facility] PROBIOTIC ORAL CHEW 2 daily po PROBIOTIC PRODUCT 04393421973 No Longer Active Sahara Rodriguez MD PhD Active BACTRIM DS 800-160 MG TABS 1 po BID x 7 days SULFAMETHOXAZOLE-TRIMETHOPRIM 55648247147 No Longer Active Vishal Hui MD Active CHANTIX STARTING MONTH EARNEST 0.5 MG X 11 & 1 MG X 42 TABS 0.5mg daily for 3 days , then 0.5mg BID for 4 days, then 1mg BID VARENICLINE TARTRATE 29799050461 No Longer Active TAMARA Gray Active METOPROLOL TARTRATE 50 MG TAB 1 po bid METOPROLOL TARTRATE 05470201314 Active Vishal Hui MD Active VERAPAMIL HCL CR 120 MG TAB CR 1 po bid VERAPAMIL HCL 04828641445 No Longer Active Vishal Hui MD Active METOPROLOL SUCCINATE 50 MG TB24 1 tablet by mouth daily METOPROLOL SUCCINATE 80410509429 No Longer Active Vishal Hui MD Active TRAMADOL HCL 50 MG TABS 1-2 po TID PRN Pain TRAMADOL HCL 35772524215 Active Vishal Hui MD Active SAPHRIS 10 MG SUBL 1 tab po bid ASENAPINE MALEATE 91971268469 No Longer Active Vishal Hui MD Active LISINOPRIL 20 MG TABS 1 tab po qd LISINOPRIL 09186215360 No Longer Active Vishal Hui MD Active BENADRYL 25 MG CAP 2 po tid prn anxiety DIPHENHYDRAMINE HCL 49606373815 Active Vishal Hui MD Active LATUDA 20 MG TABS Take one by mouth daily LURASIDONE HCL 15055446285 No Longer Active Vishal Hui MD Active TRAZODONE HCL 50 MG TABS 1/2 tab po qd prn for anxiety TRAZODONE HCL 63311859655 No Longer Active Vishal Hui MD Active PIROXICAM 20 MG CAPS 1 cap po qd PRN Pain PIROXICAM 42737095404 Active Vishal Hui MD Active OMEPRAZOLE 20 MG TBEC 1 po q a.m. 30min prior to first food intake OMEPRAZOLE 78284170583 Active Vishal Hui MD Active RANITIDINE HCL 150 MG CAPS 1 twice a day RANITIDINE HCL 87630164615 Active Vishal Hui MD Active LINZESS 290 MCG CAPS Take one by mouth daily LINACLOTIDE 57627175580 No Longer Active Vishal Hui MD Active SAPHRIS 5 MG SUBL 1 tab po qd ASENAPINE MALEATE 65189474473 No Longer Active Vishal Hui MD Active ZALEPLON 10 MG CAPS 1 cap po every other night ZALEPLON 40272921539 No Longer Active Vishal Hui MD Active LYRICA 50 MG CAPS 1 tab po TID PREGABALIN 34044429429 No Longer Active Vishal Hui MD Active LORATADINE 10 MG TABS 1 tab po qd LORATADINE 74186347923 No Longer Active Vishal Hui MD Active VERAPAMIL HCL ER 180 MG CR-TABS 1 tab po bid VERAPAMIL HCL 54587049896 No Longer Active Vishal Hui MD Active MIRALAX POWD 1 capfull once daily POLYETHYLENE GLYCOL 3350 73929476287 No Longer Active Vishal Hui MD Active PREDNISONE 20 MG TABS 1 tab po qd PREDNISONE 16483351014 No Longer Active Renzo Thornton DO Active LEVOFLOXACIN 500 MG TABS 1 tab po qd LEVOFLOXACIN 96443706396 No Longer Active Renzo Thornton DO Active BUSPIRONE HCL 15 MG TABS 1 tab po TID BUSPIRONE HCL 20815558754 No Longer Active Renzo Thornton DO Active BENZTROPINE MESYLATE 1 MG TABS 1 tab po qd BENZTROPINE MESYLATE 86687245789 No Longer Active Renzo Thornton DO Active ATENOLOL 25 MG TABS 1 tab po qd ATENOLOL 19589751240 No Longer Active Renzo Thornton DO Active ESCITALOPRAM OXALATE 20 MG TABS 1 tab po qd ESCITALOPRAM OXALATE 88798355130 No Longer Active Renzo Thornton DO Active ADVAIR DISKUS 250-50 MCG/DOSE AEPB 1 puff BID FLUTICASONE-SALMETEROL 51923388146 No Longer Active Renzo Thornton DO Active PREDNISONE 20 MG TAB 2 tabs daily for 3 days, 1 tab daily for 3 days, 1/2 tab daily for 2 days PREDNISONE 56179787071 No Longer Active Vishal Hui MD Active CEFDINIR 300 MG CAPS by mouth twice a day CEFDINIR 11013839748 No Longer Active Vishal Hui MD Active LANSOPRAZOLE 30 MG CPDR 1 cap po qd LANSOPRAZOLE 57674025164 No Longer Active Vishal Hui MD Active BACLOFEN 20 MG TABS 1 tab po tid BACLOFEN 31592232499 No Longer Active Vishal Hui MD Active ADVAIR DISKUS 250-50 MCG/DOSE AEPB 1 puff BID ADVAIR DISKUS 250-50 MCG/DOSE AEPB FLUTICASONE-SALMETEROL Inactive ESCITALOPRAM OXALATE 20 MG TABS 1 tab po qd ESCITALOPRAM OXALATE 20 MG TABS 224573 ESCITALOPRAM OXALATE Inactive ATENOLOL 25 MG TABS 1 tab po qd ATENOLOL 25 MG TABS 512291 ATENOLOL Inactive BENZTROPINE MESYLATE 1 MG TABS 1 tab po qd BENZTROPINE MESYLATE 1 MG TABS 773126 BENZTROPINE MESYLATE Inactive BUSPIRONE HCL 15 MG TABS 1 tab po TID BUSPIRONE HCL 15 MG TABS 770482 BUSPIRONE HCL Inactive LEVOFLOXACIN 500 MG TABS 1 tab po qd LEVOFLOXACIN 500 MG TABS 367143 LEVOFLOXACIN Inactive PREDNISONE 20 MG TABS 1 tab po qd PREDNISONE 20 MG TABS 422841 PREDNISONE Inactive MIRALAX POWD 1 capfull once daily MIRALAX POWD 342333 POLYETHYLENE GLYCOL 3350 Inactive VERAPAMIL HCL ER 180 MG CR-TABS 1 tab po bid VERAPAMIL HCL ER 180 MG CR-TABS VERAPAMIL HCL Inactive LORATADINE 10 MG TABS 1 tab po qd LORATADINE 10 MG TABS 887312 LORATADINE Inactive LYRICA 50 MG CAPS 1 tab po TID LYRICA 50 MG CAPS PREGABALIN Inactive ZALEPLON 10 MG CAPS 1 cap po every other night ZALEPLON 10 MG CAPS 675139 ZALEPLON Inactive SAPHRIS 5 MG SUBL 1 tab po qd SAPHRIS 5 MG SUBL ASENAPINE MALEATE Inactive TRAZODONE HCL 50 MG TABS 1/2 tab po qd prn for anxiety TRAZODONE HCL 50 MG TABS 878528 TRAZODONE HCL Inactive LATUDA 20 MG TABS Take one by mouth daily LATUDA 20 MG TABS LURASIDONE HCL Inactive LISINOPRIL 20 MG TABS 1 tab po qd LISINOPRIL 20 MG TABS 749507 LISINOPRIL Inactive SAPHRIS 10 MG SUBL 1 [...] twice daily BACTRIM DS 800-160 MG TAB 509248 TRIMETHOPRIM-SULFAMETHOXAZOLE Inactive MULTIVITAMINS CAPS Take one by mouth daily MULTIVITAMINS CAPS MULTIPLE VITAMIN Inactive MELATONIN 3 MG CAPS 2 po q hs MELATONIN 3 MG CAPS 459108 MELATONIN Inactive KEFLEX 500 MG ORAL CAPS 1 cap QID by mouth KEFLEX 500 MG ORAL CAPS 032145 CEPHALEXIN Inactive CLINDAMYCIN HCL 150 MG CAPS 1 four times a day CLINDAMYCIN HCL 150 MG CAPS 724873 CLINDAMYCIN HCL Inactive DIFLUCAN 150 MG TAB 1 tablet by mouth daily DIFLUCAN 150 MG TAB 756156 FLUCONAZOLE Inactive PROZAC 20 MG CAP Take one by mouth daily PROZAC 20 MG CAP 582214 FLUOXETINE HCL Inactive IBUPROFEN 600 MG TAB 1 po TID PRN IBUPROFEN 600 MG TAB 679870 IBUPROFEN Inactive VYVANSE 40 MG CAPS 1 daily, VYVANSE 40 MG CAPS LISDEXAMFETAMINE DIMESYLATE Inactive TRAZODONE HCL 100 MG TAB take 1 at bedtime TRAZODONE HCL 100 MG TAB 516940 TRAZODONE HCL Inactive AMITRIPTYLINE HCL 100 MG TAB one at hs AMITRIPTYLINE HCL 100 MG TAB 235953 AMITRIPTYLINE HCL Inactive AMLODIPINE BESYLATE 5 MG TABS 1 tablet by mouth daily AMLODIPINE BESYLATE 5 MG TABS 288934 AMLODIPINE BESYLATE Inactive LATUDA 80 MG TABS Take one by mouth daily LATUDA 80 MG TABS LURASIDONE HCL Inactive SAPHRIS 5 MG SUBL 1 po bid SAPHRIS 5 MG SUBL ASENAPINE MALEATE Inactive CEFDINIR 300 MG CAPS by mouth twice a day CEFDINIR 300 MG CAPS 873821 CEFDINIR Inactive PREDNISONE 20 MG TAB 2 tabs daily for 3 days, 1 tab daily for 3 days, 1/2 tab daily for 2 days PREDNISONE 20 MG TAB 449731 PREDNISONE Inactive BACTRIM DS 800-160 MG TABS 1 po BID x 7 days BACTRIM DS 800-160 MG TABS 19820521 SULFAMETHOXAZOLE-TRIMETHOPRIM Inactive DIFLUCAN 150 MG TABS 1 pill every other day x 2 doses DIFLUCAN 150 MG TABS 504655 FLUCONAZOLE Inactive BACTRIM DS 800-160 MG TABS 1 pill by mouth twice daily BACTRIM DS 800-160 MG TABS 19820521 SULFAMETHOXAZOLE-TRIMETHOPRIM Inactive KEFLEX 500 MG CAP 1 po TID x 10 days KEFLEX 500 MG CAP 656299 CEPHALEXIN Inactive Advance Directives Directive Description Start [...] pressure, diastolic - 8462-4 70 mm[Hg] BP mcanlly blood pressure, systolic - 8480-6 118 mm[Hg] [...] E&M - 3141-9 275.12 [lb_av] Weight Measured Diagnostic Results Date Name [...] % 11.6-14.8 platelet count 394 10^3/MM^3 10*3/mm3 635-163 5775/01/11 leukocyte count, blood 13.8 10^3/MM^3 10*3/mm3 4.6-10.2 [...] Panel - Chemistry sodium, serum 139 mmol/L 027-616 2008/12/03 carbon dioxide, venous blood 28.5 mmol/L 21.0-32.0 [...] 5.5 % 4.3-6.0 cholesterol, serum 159 mg/dL 761-409 6394/12/03 triglyceride, serum, fasting 118 mg/dL 30-200 HDL [...] ... - Chemistry sodium, serum 140 mmol/L 517-238 9285/05/28 potassium, serum 4.2 mmol/L 3.5-5.2 chloride, serum [...] Thyroxine (L), Thyroid Stim ... - Hematology hemoglobin, blood 12.9 g/dL 12.0-16.0 erythrocyte (RBC) count 4.12 10^6/MM^3 10*6/mm3 4.04-5.48 leukocyte count, blood 8.8 10^3/MM^3 10*3/mm3 4.6-10.2 mean corpuscular hemoglobin, RBC 31.4 pg 27.0-31.2 mean corpuscular hemoglobin concentration, RBC 33.6 G/DL % 31.8- 35.4 red blood cell distribution width 13.1 % 11.6-14.8 platelet count 348 10^3/MM^3 10*3/mm3 159-213 4312/05/28 mean corpuscular volume, RBC 93 fL 80-97 hematocrit, blood 38.5 % 36.0-46.0 Lab Report: Comp. Metabolic Panel - Chemistry sodium, serum 139 mmol/L 290-956 1142/01/11 carbon dioxide, venous blood 26.6 mmol/L 21.0-32.0 potassium, serum 4.1 mmol/L 3.5-5.2 chloride, serum 100 mmol/L 98-107 blood glucose 86 mg/dL 65-110 urea nitrogen, blood 16 mg/dL 7-18 creatinine, serum 1.00 mg/dL 0.55-1.30 alanine aminotransferase (SGPT), serum 48 U/L 12-78 aspartate aminotransferase (SGOT), serum 17 U/L 15-37 calcium, serum 9.1 mg/dL 8.5-10.1 bilirubin, serum, total 0.40 mg/dL 0.00-1.00 sodium, serum 139 mmol/L 388-249 8511/12/22 carbon dioxide, venous blood 26.8 mmol/L 21.0-32.0 [...] Rate - Chemistry sodium, serum 139 mmol/L 701-753 6928/12/11 carbon dioxide, venous blood 25.4 mmol/L 21.0-32.0 [...] 5.0-8.5 Encounters Code Encounter Date Provider Facility CPT-52186 Level 4 Est. Patient 09:00:51 GUN FITTER Vishal Hui MD [facility] CPT-84923 Level 3 Est. Patient 11:37:33 GUN FITTER Vishal Hui MD [facility] CPT-93521 Level 3 Est. Patient 08:41:09 GUN FITTER Vishal Hui MD [facility] CPT-43003 Level 4 Est. Patient 10:19:35 GUN FITTER Vishal Hui MD [facility] CPT-66007 Level 3 Est. Patient 13:35:45 CDT Vishal Hui MD [facility] CPT-85478 Level 4 Est. Patient 10:08:37 CDT Vishal Hui MD [facility] CPT-66044 Level 3 Est. Patient 11:22:10 CDT Vishal Hui MD [facility] CPT-06842 Level 3 Est. Patient 11:03:32 CDT Sahara Rodriguez MD [facility] CPT-11361 Level 3 Est. Patient 09:41:35 CDT Vishal Hui MD [facility] CPT-40945 Level 3 Est. Patient 12:00:41 CDT Neeraj Collins MD [facility] CPT-83084 Level 3 Est. Patient 09:16:24 CDT Vishal Hui MD [facility] CPT-82189 Level 4 Est. Patient 13:59:09 CDT Neeraj Collins MD [facility] CPT-61732 Level 3 Est. Patient 15:19:43 CDT Renzo Thornton DO [facility] CPT-06039 Level 3 Est. Patient 18:10:26 CDT Sahara Rodriguez MD [facility] CPT-07782 Level 3 Est. Patient 14:49:50 CDT Vishal Hui MD [facility] CPT-74197 Level 4 Est. Patient 18:41:46 CDT Neeraj Collins MD [facility] CPT-14298 Level 4 Est. Patient 09:18:38 GUN FITTER Vishal Hui MD [facility] CPT-57346 Level 3 Est. Patient 14:43:55 GUN FITTER Vishal Hui MD [facility] CPT-45689 Level 3 Est. Patient 15:26:33 GUN FITTER Sahara Rodriguez MD PhD [facility] CPT-40826 Level 3 Est. Patient 10:32:14 GUN FITTER Vishal Hui MD [facility] CPT-25508 Level 3 Est. Patient 15:12:52 GUN FITTER Vishal Hui MD [facility] CPT-11817 Level 4 Est. Patient 09:19:27 CDT Vishal Hui MD [facility] CPT-54521 Level 3 Est. Patient 15:53:00 CDT Renzo Thornton [facility] CPT-53782 Level 3 Est. Patient 15:50:30 CDT Renzo Thornton [facility] CPT-46736 Level 3 Est. Patient 16:55:24 CDT Vishal Hui MD [facility] Procedures Code Procedure Name Date Entry Date Standard Description CPT-J3420 Vitamin B12 1000mcg (Cyanocobalamin) 08:10:26 GUN FITTER 04/12 CPT-98253 Abx/Therapy Injection 08:10:26 GUN FITTER CPT-G0438 Initial Annual Wellness Exam 19:01:01 GUN FITTER CPT-J3420 Vitamin B12 1000mcg (Cyanocobalamin) 16:57:46 CDT 08/14 CPT-61780 Recombivax HB Injection Suspension 5 MCG/0.5ML 08:37:50 GUN FITTER CPT-81261 Immunization Single Admin 08:37:50 GUN FITTER CPT-J3420 Vitamin B12 1000mcg (Cyanocobalamin) 08:32:16 GUN FITTER 03/11 CPT-85346 Abx/Therapy Injection 08:32:16 GUN FITTER CPT-18857 Chest 2V Frontal and Lat 11:46:38 GUN FITTER CPT-91297 Venipuncture Draw Fee 09:12:45 GUN FITTER CPT-J3420 Vitamin B12 1000mcg (Cyanocobalamin) 08:50:15 GUN FITTER 02/08 CPT-94529 Abx/Therapy Injection 08:50:15 GUN FITTER CPT-Cryo Cryotherapy 10:19:35 GUN FITTER CPT-000 Give Appropriate Flu Vaccine 09:22:16 CDT CPT-J3420 Vitamin B12 1000mcg (Cyanocobalamin) 19:08:57 CDT 01/11 CPT-77104 Abx/Therapy Injection 19:08:57 CDT CPT-J3420 Vitamin B12 1000mcg (Cyanocobalamin) 08:19:08 CDT 12/11 CPT-16370 Abx/Therapy Injection 08:19:08 CDT CPT-J3420 Vitamin B12 1000mcg (Cyanocobalamin) 14:48:00 CDT 11/09 CPT-39163 Abx/Therapy Injection 14:47:59 CDT CPT-J3420 Vitamin B12 1000mcg (Cyanocobalamin) 08:34:04 CDT 10/09 CPT-13651 Abx/Therapy Injection 08:34:04 CDT CPT-J3420 Vitamin B12 1000mcg (Cyanocobalamin) 09:18:52 CDT 09/11 CPT-31177 Abx/Therapy Injection 09:18:52 CDT CPT-J3420 Vitamin B12 1000mcg (Cyanocobalamin) 08:35:44 CDT 09/04 CPT-92289 Abx/Therapy Injection 08:35:44 CDT CPT-73979 Immunization Single Admin 11:07:16 CDT CPT-50045 Hepatitis B adult IM 11:07:16 CDT CPT-J3420 Vitamin B12 1000mcg (Cyanocobalamin) 11:00:49 CDT 08/28 CPT-J1040 Depo Medrol 80 mg (Methyl Prednisolone Acetate) 11:00: 49 CDT CPT-40749 Abx/Therapy Injection 11:00:49 CDT CPT-J1040 Depo Medrol 80 mg (Methyl Prednisolone Acetate) 09:16: 23 CDT CPT-J3420 Vitamin B12 1000mcg (Cyanocobalamin) 08:27:05 CDT 08/20 CPT-55246 Abx/Therapy Injection 08:27:05 CDT CPT-56574 Recombivax HB Injection Suspension 5 MCG/0.5ML 10:00:41 CDT CPT-35243 Administration single or combination vaccine inc oral 10 :00:41 CDT CPT-31034 Sono transvag pelvis non OB uterus ovaries cervix 16:36: 57 CDT CPT-90531 LS spine comp w obliq 09:50:55 GUN FITTER CPT-42667 Abd compl w upright 09:50:55 GUN FITTER CPT-J1100 Decadron 4mg (Dexamethasone) 15:51:24 GUN FITTER CPT-J1030 Depo Medrol 40 mg (Methyl Prednisolone Acetate) 15:51: 24 GUN FITTER CPT-56737 Abx/Therapy Injection 15:51:24 GUN FITTER CPT-J1100 Decadron 4mg (Dexamethasone) 15:26:33 GUN FITTER CPT-J1030 Depo Medrol 40 mg (Methyl Prednisolone Acetate) 15:26: 33 GUN FITTER CPT-71489 Sono retroperitoneal complete kidneys and bladder 17:15: 30 CDT CPT-37062 Abd compl w upright 16:09:25 CDT CPT-J1100 Decadron 8mg (Dexamethasone) 17:07:57 CDT CPT-94016 Abx/Therapy Injection 17:07:57 CDT CPT-J1100 Decadron 8mg (Dexamethasone) 16:55:24 CDT CPT-52918 Chest 2V Frontal and Lat 16:32:44 CDT
--- OUTSIDE RECORDS SUMMARY | 2016-11-04 16:27 | XMS REPORT | Clinical Summary ---
Author Author Admin, QIE Organization [employer] Address Unknown Phone Unavailable Allergies, Adverse [...] sites Morbid obesity 278.01 Active Juliet Kimbrough FUR DYER Morbid obesity 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 Active Juliet Kimbrough FUR [employer]YER Dependence on other enabling machines and devices [...] 1 po TID x 10 days CEPHALEXIN 73361715228 Active Vishal Hui MD Active ABILIFY MAINTENA 400 MG IM SUSR Injection once per month ARIPIPRAZOLE 74494800645 Active Juliet Kimbrough APRN Active PREDNISONE 20 MG TAB 2 tabs daily for 4 days, 1 tab daily for 4 days, 1/2 tab daily for 4 days PREDNISONE 72055858711 Active Vishal Hui MD Active IMITREX 50 MG ORAL TABS 1/2 tab every 6 hours prn SUMATRIPTAN SUCCINATE 09641467129 Active Luigi Martínez APRN Active AMBIEN 5 MG ORAL TABS 1 tab at bedtime ZOLPIDEM TARTRATE 83698612009 Active Luigi Martínez APRN Active PROZAC 20 MG ORAL CAPS 1 tab daily FLUOXETINE HCL 58596814044 Active Luigi Martínez APRN Active ABILIFY 15 MG ORAL TABS 1 tab daily ARIPIPRAZOLE 59189119079 Active Luigi Martínez APRN Active MINIPRESS 2 MG CAPS 4 cap po at night PRAZOSIN HCL 42828491305 Active Luigi Martínez APRN Active TOPAMAX 50 MG ORAL TABS 1 tab twice daily TOPIRAMATE 83330063847 Active Vishal Hui MD Active SAPHRIS 5 MG SUBL 1 po bid ASENAPINE MALEATE 59471746793 No Longer Active Luigi Martínez APRN Active LATUDA 80 MG TABS Take one by mouth daily LURASIDONE HCL 53462903948 No Longer Active Luigi Martínez APRN Active AMLODIPINE BESYLATE 5 MG TABS 1 tablet by mouth daily AMLODIPINE BESYLATE 93618732275 No Longer Active Luigi Martínez APRN Active AMITRIPTYLINE HCL 100 MG TAB one at hs AMITRIPTYLINE HCL 58187790930 No Longer Active Vishal Hui MD Active TRAZODONE HCL 100 MG TAB take 1 at bedtime TRAZODONE HCL 16100568858 No Longer Active Vishal Hui MD Active VYVANSE 40 MG CAPS 1 daily, LISDEXAMFETAMINE DIMESYLATE 22139243106 No Longer Active Vishal Hui MD Active IBUPROFEN 600 MG TAB 1 po TID PRN IBUPROFEN 23005219365 No Longer Active Vishal Hui MD Active MIRALAX PACK 1 po qd PRN Constipation POLYETHYLENE GLYCOL 3350 78429815409 Active Vishal Hui MD Active PROZAC 20 MG CAP Take one by mouth daily FLUOXETINE HCL 11446459114 No Longer Active Vishal Hui MD Active ZOFRAN 4 MG TABS 1 po q6hr PRN Nausea ONDANSETRON HCL Active Vishal Hui MD Active BACTRIM DS 800-160 MG TABS 1 pill by mouth twice daily SULFAMETHOXAZOLE-TRIMETHOPRIM 19240202354 No Longer Active Sahara Rodriguez MD PhD Active DIFLUCAN 150 MG TAB 1 tablet by mouth daily FLUCONAZOLE 00059690349 No Longer Active Vishal Hui MD Active TIZANIDINE HCL 4 MG TABS 1 po q6hr PRN Muscle Spasm/Back Pain TIZANIDINE HCL 42964188993 Active Luigi Martínez APRN Active CLINDAMYCIN HCL 150 MG CAPS 1 four times a day CLINDAMYCIN HCL 10356356094 No Longer Active Neeraj Collins MD Active KEFLEX 500 MG ORAL CAPS 1 cap QID by mouth CEPHALEXIN 33748240848 No Longer Active Neeraj Collins MD Active DIFLUCAN 150 MG TABS 1 pill every other day x 2 doses FLUCONAZOLE 95094144427 No Longer Active Sahara Rodriguez MD PhD Active MELATONIN 3 MG CAPS 2 po q hs MELATONIN 28473159405 No Longer Active Sahara Rodriguez MD PhD Active MULTIVITAMINS CAPS Take one by mouth daily MULTIPLE VITAMIN 69399809832 No Longer Active Sahara Rodriguez MD PhD Active BACTRIM DS 800-160 MG TAB 1 tab by mouth twice daily TRIMETHOPRIM-SULFAMETHOXAZOLE 24279880010 No Longer Active Sahara Rodriguez MD PhD Active [facility] PROBIOTIC ORAL CHEW 2 daily po PROBIOTIC PRODUCT 71282499489 No Longer Active Sahara Rodriguez MD PhD Active BACTRIM DS 800-160 MG TABS 1 po BID x 7 days SULFAMETHOXAZOLE-TRIMETHOPRIM 06216361466 No Longer Active Vishal Hui MD Active CHANTIX STARTING MONTH EARNEST 0.5 MG X 11 & 1 MG X 42 TABS 0.5mg daily for 3 days , then 0.5mg BID for 4 days, then 1mg BID VARENICLINE TARTRATE 13370416953 No Longer Active TAMARA Gray Active METOPROLOL TARTRATE 50 MG TAB 1 po bid METOPROLOL TARTRATE 03297101774 Active Vishal Hui MD Active VERAPAMIL HCL CR 120 MG TAB CR 1 po bid VERAPAMIL HCL 17030468992 No Longer Active Vishal Hui MD Active METOPROLOL SUCCINATE 50 MG TB24 1 tablet by mouth daily METOPROLOL SUCCINATE 01371492614 No Longer Active Vishal Hui MD Active TRAMADOL HCL 50 MG TABS 1-2 po TID PRN Pain TRAMADOL HCL 48817310149 Active Vishal Hui MD Active SAPHRIS 10 MG SUBL 1 tab po bid ASENAPINE MALEATE 21424018711 No Longer Active Vishal Hui MD Active LISINOPRIL 20 MG TABS 1 tab po qd LISINOPRIL 83180346785 No Longer Active Vishal Hui MD Active BENADRYL 25 MG CAP 2 po tid prn anxiety DIPHENHYDRAMINE HCL 32910102909 Active Vishal Hui MD Active LATUDA 20 MG TABS Take one by mouth daily LURASIDONE HCL 09768483761 No Longer Active Vishal Hui MD Active TRAZODONE HCL 50 MG TABS 1/2 tab po qd prn for anxiety TRAZODONE HCL 02800032531 No Longer Active Vishal Hui MD Active PIROXICAM 20 MG CAPS 1 cap po qd PRN Pain PIROXICAM 55519594006 Active Vishal Hui MD Active OMEPRAZOLE 20 MG TBEC 1 po q a.m. 30min prior to first food intake OMEPRAZOLE 27588297987 Active Vishal Hui MD Active RANITIDINE HCL 150 MG CAPS 1 twice a day RANITIDINE HCL 34290796399 Active Vishal Hui MD Active LINZESS 290 MCG CAPS Take one by mouth daily LINACLOTIDE 53384467667 No Longer Active Vishal Hui MD Active SAPHRIS 5 MG SUBL 1 tab po qd ASENAPINE MALEATE 86143552232 No Longer Active Vishal Hui MD Active ZALEPLON 10 MG CAPS 1 cap po every other night ZALEPLON 16952707282 No Longer Active Vishal Hui MD Active LYRICA 50 MG CAPS 1 tab po TID PREGABALIN 74929466091 No Longer Active Vishal Hui MD Active LORATADINE 10 MG TABS 1 tab po qd LORATADINE 58887707052 No Longer Active Vishal Hui MD Active VERAPAMIL HCL ER 180 MG CR-TABS 1 tab po bid VERAPAMIL HCL 44465501745 No Longer Active Vishal Hui MD Active MIRALAX POWD 1 capfull once daily POLYETHYLENE GLYCOL 3350 76535450724 No Longer Active Vishal Hui MD Active PREDNISONE 20 MG TABS 1 tab po qd PREDNISONE 89676539138 No Longer Active Renzo Thornton DO Active LEVOFLOXACIN 500 MG TABS 1 tab po qd LEVOFLOXACIN 48740287381 No Longer Active Renzo Thornton DO Active BUSPIRONE HCL 15 MG TABS 1 tab po TID BUSPIRONE HCL 43421714498 No Longer Active Renzo Thornton DO Active BENZTROPINE MESYLATE 1 MG TABS 1 tab po qd BENZTROPINE MESYLATE 15532638225 No Longer Active Renzo Thornton DO Active ATENOLOL 25 MG TABS 1 tab po qd ATENOLOL 87869918135 No Longer Active Renzo Thornton DO Active ESCITALOPRAM OXALATE 20 MG TABS 1 tab po qd ESCITALOPRAM OXALATE 92992973587 No Longer Active Renzo Thornton DO Active ADVAIR DISKUS 250-50 MCG/DOSE AEPB 1 puff BID FLUTICASONE-SALMETEROL 96299159023 No Longer Active Renzo Thornton DO Active PREDNISONE 20 MG TAB 2 tabs daily for 3 days, 1 tab daily for 3 days, 1/2 tab daily for 2 days PREDNISONE 78131553887 No Longer Active Vishal Hui MD Active CEFDINIR 300 MG CAPS by mouth twice a day CEFDINIR 98053087763 No Longer Active Vishal Hui MD Active LANSOPRAZOLE 30 MG CPDR 1 cap po qd LANSOPRAZOLE 59233508535 No Longer Active Vishal Hui MD Active BACLOFEN 20 MG TABS 1 tab po tid BACLOFEN 05185189896 No Longer Active Vishal Hui MD Active ADVAIR DISKUS 250-50 MCG/DOSE AEPB 1 puff BID ADVAIR DISKUS 250-50 MCG/DOSE AEPB FLUTICASONE-SALMETEROL Inactive ESCITALOPRAM OXALATE 20 MG TABS 1 tab po qd ESCITALOPRAM OXALATE 20 MG TABS 397125 ESCITALOPRAM OXALATE Inactive ATENOLOL 25 MG TABS 1 tab po qd ATENOLOL 25 MG TABS 542870 ATENOLOL Inactive BENZTROPINE MESYLATE 1 MG TABS 1 tab po qd BENZTROPINE MESYLATE 1 MG TABS 158422 BENZTROPINE MESYLATE Inactive BUSPIRONE HCL 15 MG TABS 1 tab po TID BUSPIRONE HCL 15 MG TABS 581716 BUSPIRONE HCL Inactive LEVOFLOXACIN 500 MG TABS 1 tab po qd LEVOFLOXACIN 500 MG TABS 407717 LEVOFLOXACIN Inactive PREDNISONE 20 MG TABS 1 tab po qd PREDNISONE 20 MG TABS 553950 PREDNISONE Inactive MIRALAX POWD 1 capfull once daily MIRALAX POWD 467111 POLYETHYLENE GLYCOL 3350 Inactive VERAPAMIL HCL ER 180 MG CR-TABS 1 tab po bid VERAPAMIL HCL ER 180 MG CR-TABS VERAPAMIL HCL Inactive LORATADINE 10 MG TABS 1 tab po qd LORATADINE 10 MG TABS 178093 LORATADINE Inactive LYRICA 50 MG CAPS 1 tab po TID LYRICA 50 MG CAPS PREGABALIN Inactive ZALEPLON 10 MG CAPS 1 cap po every other night ZALEPLON 10 MG CAPS 541662 ZALEPLON Inactive SAPHRIS 5 MG SUBL 1 tab po qd SAPHRIS 5 MG SUBL ASENAPINE MALEATE Inactive TRAZODONE HCL 50 MG TABS 1/2 tab po qd prn for anxiety TRAZODONE HCL 50 MG TABS 148242 TRAZODONE HCL Inactive LATUDA 20 MG TABS Take one by mouth daily LATUDA 20 MG TABS LURASIDONE HCL Inactive LISINOPRIL 20 MG TABS 1 tab po qd LISINOPRIL 20 MG TABS 999833 LISINOPRIL Inactive SAPHRIS 10 MG SUBL 1 [...] twice daily BACTRIM DS 800-160 MG TAB 605612 TRIMETHOPRIM-SULFAMETHOXAZOLE Inactive MULTIVITAMINS CAPS Take one by mouth daily MULTIVITAMINS CAPS MULTIPLE VITAMIN Inactive MELATONIN 3 MG CAPS 2 po q hs MELATONIN 3 MG CAPS 155100 MELATONIN Inactive KEFLEX 500 MG ORAL CAPS 1 cap QID by mouth KEFLEX 500 MG ORAL CAPS 035157 CEPHALEXIN Inactive CLINDAMYCIN HCL 150 MG CAPS 1 four times a day CLINDAMYCIN HCL 150 MG CAPS 19740326 CLINDAMYCIN HCL Inactive DIFLUCAN 150 MG TAB 1 tablet by mouth daily DIFLUCAN 150 MG TAB 279457 FLUCONAZOLE Inactive PROZAC 20 MG CAP Take one by mouth daily PROZAC 20 MG CAP 966194 FLUOXETINE HCL Inactive IBUPROFEN 600 MG TAB 1 po TID PRN IBUPROFEN 600 MG TAB 757720 IBUPROFEN Inactive VYVANSE 40 MG CAPS 1 daily, VYVANSE 40 MG CAPS LISDEXAMFETAMINE DIMESYLATE Inactive TRAZODONE HCL 100 MG TAB take 1 at bedtime TRAZODONE HCL 100 MG TAB 887727 TRAZODONE HCL Inactive AMITRIPTYLINE HCL 100 MG TAB one at hs AMITRIPTYLINE HCL 100 MG TAB 021331 AMITRIPTYLINE HCL Inactive AMLODIPINE BESYLATE 5 MG TABS 1 tablet by mouth daily AMLODIPINE BESYLATE 5 MG TABS 364545 AMLODIPINE BESYLATE Inactive LATUDA 80 MG TABS Take one by mouth daily LATUDA 80 MG TABS LURASIDONE HCL Inactive SAPHRIS 5 MG SUBL 1 po bid SAPHRIS 5 MG SUBL ASENAPINE MALEATE Inactive CEFDINIR 300 MG CAPS by mouth twice a day CEFDINIR 300 MG CAPS 027311 CEFDINIR Inactive PREDNISONE 20 MG TAB 2 tabs daily for 3 days, 1 tab daily for 3 days, 1/2 tab daily for 2 days PREDNISONE 20 MG TAB 111385 PREDNISONE Inactive BACTRIM DS 800-160 MG TABS 1 po BID x 7 days BACTRIM DS 800-160 MG TABS 19820521 SULFAMETHOXAZOLE-TRIMETHOPRIM Inactive DIFLUCAN 150 MG TABS 1 pill every other day x 2 doses DIFLUCAN 150 MG TABS 583855 FLUCONAZOLE Inactive BACTRIM DS 800-160 MG TABS [...] % 11.6-14.8 platelet count 394 10^3/MM^3 10*3/mm3 519-380 8471/01/11 leukocyte count, blood 13.8 10^3/MM^3 10*3/mm3 4.6-10.2 [...] Panel - Chemistry sodium, serum 139 mmol/L 923-789 6780/12/03 carbon dioxide, venous blood 28.5 mmol/L 21.0-32.0 [...] 5.5 % 4.3-6.0 cholesterol, serum 159 mg/dL 420-120 4783/12/03 triglyceride, serum, fasting 118 mg/dL 30-200 HDL [...] ... - Chemistry sodium, serum 140 mmol/L 198-080 4781/05/28 potassium, serum 4.2 mmol/L 3.5-5.2 chloride, serum [...] Panel - Chemistry sodium, serum 141 mmol/L 634-149 3730 potassium, serum 4.3 mmol/L 3.5-5.2 chloride, serum 106 mmol/L 98-107 carbon dioxide, venous blood 25.7 mmol/L 21.0-32.0 blood glucose 119 mg/dL 65-110 urea nitrogen, blood 22 mg/dL 7-18 creatinine, serum 0.90 mg/dL 0.60-1.30 alanine aminotransferase (SGPT), serum 28 U/L 12-78 aspartate aminotransferase (SGOT), serum 13 U/L 15-37 calcium, serum 8.5 mg/dL 8.5-10.1 bilirubin, serum, total 0.20 mg/dL 0.00-1.00 sodium, serum 139 mmol/L 081-137 0117/12/22 carbon dioxide, venous blood 26.8 mmol/L 21.0-32.0 potassium, serum 4.2 mmol/L 3.5-5.2 chloride, serum 103 mmol/L 98-107 blood glucose 115 mg/dL 65-110 urea nitrogen, blood 20 mg/dL 7-18 creatinine, serum 0.90 mg/dL 0.55-1.30 alanine aminotransferase (SGPT), serum 38 U/L - aspartate aminotransferase (SGOT), serum 19 U/L 15-37 calcium, serum 8.6 mg/dL 8.5-10.1 bilirubin, serum, total 0.30 mg/dL 0.00-1.00 sodium, serum 139 mmol/L 565-914 0043/01/11 carbon dioxide, venous blood 26.6 mmol/L 21.0-32.0 [...] Rate - Chemistry sodium, serum 139 mmol/L 673-724 1853/12/11 carbon dioxide, venous blood 25.4 mmol/L 21.0-32.0 [...] 5.5 5.0-8.5 Lab Report: UADIP W/MICRO, AUTO, [facility] [place] - Chemistry protein, total urine random Negative mg/dL Negative RBC, urine, dipstick Negative Negative human chorionic gonadotropin, urine, qualitative (urine test) Negative Negative Lab Report: UADIP W/MICRO, AUTO, [facility] [place] - Urinalysis urobilinogen, urine, semiquantitative (dipstick) 0.2 Normal leukocyte esterase, urine, by dipstick Negative Negative nitrite, urine, semiquantitative Negative Negative glucose, urine, semiquantitative Negative Negative ketones, urine, by test strip Negative Negative bilirubin, urine Negative Negative urine color Yellow Colorless;Lightyellow;Straw;Yellow appearance, urine Clear Clear specific gravity, urine 1.025 1.000-1.030 pH, urine, semiquantitative 7.0 5.0-8.5 Lab Report: Varicella-Zoater Inga IgG,IgM/83188, HEP Be Antibody/556, RUB ... - Serology rubella antibody, serum, IgG 2.88 Encounters Code Encounter Date Provider Facility CPT-49978 Level 4 Est. Patient 09:00:51 [employer] Vishal Hui MD [facility] CPT-96668 Level 3 Est. Patient 11:37:33 [employer] Vishal Hui MD [facility] CPT-19844 Level 3 Est. Patient 08:41:09 [employer] Vishal Hui MD [facility] CPT-78705 Level 4 Est. Patient 10:19:35 [employer] Vishal Hui MD [facility] CPT-11248 Level 3 Est. Patient 13:35:45 CDT Vishal Hui MD [facility] CPT-46460 Level 4 Est. Patient 10:08:37 CDT Vishal Hui MD [facility] CPT-06562 Level 3 Est. Patient 11:22:10 CDT Vishal Hui MD [facility] CPT-33356 Level 3 Est. Patient 11:03:32 CDT Sahara Rodriguez MD [facility]-63453 Level 3 Est. Patient 09:41:35 CDT Vishal Hui MD [facility] CPT-07863 Level 3 Est. Patient 12:00:41 CDT Neeraj Collins MD [facility] CPT-53925 Level 3 Est. Patient 09:16:24 CDT Vishal Hui MD [facility] CPT-39094 Level 4 Est. Patient 13:59:09 CDT Neeraj Collins MD [facility] CPT-99731 Level 3 Est. Patient 15:19:43 CDT Renzo Thornton DO [facility] CPT-88428 Level 3 Est. Patient 18:10:26 CDT Sahara Rodriguez MD [facility] CPT-73386 Level 3 Est. Patient 14:49:50 CDT Vishal Hui MD [facility] CPT-65257 Level 4 Est. Patient 18:41:46 CDT Neeraj Collins MD [facility] CPT-49923 Level 4 Est. Patient 09:18:38 [employer] Vishal Hui MD [facility] CPT-37169 Level 3 Est. Patient 14:43:55 [employer] Vishal Hui MD [facility] CPT-01617 Level 3 Est. Patient 15:26:33 [employer] Sahara Rodriguez MD PhD [facility] CPT-80312 Level 3 Est. Patient 10:32:14 [employer] Vishal Hui MD [facility] CPT-91684 Level 3 Est. Patient 15:12:52 [employer] Vishal Hui MD [facility] CPT-37595 Level 4 Est. Patient 09:19:27 CDT Vishal Hui MD [facility] CPT-96299 Level 3 Est. Patient 15:53:00 CDT Renzo Thornton [facility] CPT-03022 Level 3 Est. Patient 15:50:30 CDT Renzo Thornton [facility] CPT-90417 Level 3 Est. Patient 16:55:24 CDT Vishal Hui MD [facility] Procedures Code Procedure Name Date Entry Date Standard Description CPT-J3420 Vitamin B12 1000mcg (Cyanocobalamin) 08:10:26 [employer] 04/12 CPT-17465 Abx/Therapy Injection 08:10:26 [employer] CPT-G0438 Initial Annual Wellness Exam 19:01:01 [employer] CPT-J3420 Vitamin B12 1000mcg (Cyanocobalamin) 16:57:46 CDT 08/14 CPT-09349 Recombivax HB Injection Suspension 5 MCG/0.5ML 08:37:50 [employer] CPT-62033 Immunization Single Admin 08:37:50 [employer] CPT-J3420 Vitamin B12 1000mcg (Cyanocobalamin) 08:32:16 [employer] 03/11 CPT-97214 Abx/Therapy Injection 08:32:16 [employer] CPT-76261 Chest 2V Frontal and Lat 11:46:38 [employer] CPT-88303 Venipuncture Draw Fee 09:12:45 [employer] CPT-J3420 Vitamin B12 1000mcg (Cyanocobalamin) 08:50:15 [employer] 02/08 CPT-78785 Abx/Therapy Injection 08:50:15 [employer] CPT-Cryo Cryotherapy 10:19:35 [employer] CPT-000 Give Appropriate Flu Vaccine 09:22:16 CDT CPT-J3420 Vitamin B12 1000mcg (Cyanocobalamin) 19:08:57 CDT 01/11 CPT-08695 Abx/Therapy Injection 19:08:57 CDT CPT-J3420 Vitamin B12 1000mcg (Cyanocobalamin) 08:19:08 CDT 12/11 CPT-50513 Abx/Therapy Injection 08:19:08 CDT CPT-J3420 Vitamin B12 1000mcg (Cyanocobalamin) 14:48:00 CDT 11/09 CPT-30550 Abx/Therapy Injection 14:47:59 CDT CPT-J3420 Vitamin B12 1000mcg (Cyanocobalamin) 08:34:04 CDT 10/09 CPT-54867 Abx/Therapy Injection 08:34:04 CDT CPT-J3420 Vitamin B12 1000mcg (Cyanocobalamin) 09:18:52 CDT 09/11 CPT-93092 Abx/Therapy Injection 09:18:52 CDT CPT-J3420 Vitamin B12 1000mcg (Cyanocobalamin) 08:35:44 CDT 09/04 CPT-36883 Abx/Therapy Injection 08:35:44 CDT CPT-25578 Immunization Single Admin 11:07:16 CDT CPT-96397 Hepatitis B adult IM 11:07:16 CDT CPT-J3420 Vitamin B12 1000mcg (Cyanocobalamin) 11:00:49 CDT 08/28 CPT-J1040 Depo Medrol 80 mg (Methyl Prednisolone Acetate) 11:00: 49 CDT CPT-96317 Abx/Therapy Injection 11:00:49 CDT CPT-J1040 Depo Medrol 80 mg (Methyl Prednisolone Acetate) 09:16: 23 CDT CPT-J3420 Vitamin B12 1000mcg (Cyanocobalamin) 08:27:05 CDT 08/20 CPT-02757 Abx/Therapy Injection 08:27:05 CDT CPT-40371 Recombivax HB Injection Suspension 5 MCG/0.5ML 10:00:41 CDT CPT-24287 Administration single or combination vaccine inc oral 10 :00:41 CDT CPT-28842 Sono transvag pelvis non OB uterus ovaries cervix 16:36: 57 CDT CPT-68246 LS spine comp w obliq 09:50:55 [employer] CPT-29823 Abd compl w upright 09:50:55 [employer] CPT-J1100 Decadron 4mg (Dexamethasone) 15:51:24 [employer] CPT-J1030 Depo Medrol 40 mg (Methyl Prednisolone Acetate) 15:51: 24 [employer] CPT-27171 Abx/Therapy Injection 15:51:24 [employer] CPT-J1100 Decadron 4mg (Dexamethasone) 15:26:33 [employer] CPT-J1030 Depo Medrol 40 mg (Methyl Prednisolone Acetate) 15:26: 33 [employer] CPT-78884 Sono retroperitoneal complete kidneys and bladder 17:15: 30 CDT CPT-76321 Abd compl w upright 16:09:25 CDT CPT-J1100 Decadron 8mg (Dexamethasone) 17:07:57 CDT CPT-27051 Abx/Therapy Injection 17:07:57 CDT CPT-J1100 Decadron 8mg (Dexamethasone) 16:55:24 CDT CPT-72702 Chest 2V Frontal and Lat 16:32:44 CDT
--- OUTSIDE RECORDS SUMMARY | 2016-11-04 16:29 | XMS REPORT | Clinical Summary ---
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 Morbid obesity 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 Active Juliet Kimbrough LAUNDRY MARKER SUPERVISOR Dependence on other enabling machines and [...] breath Nocturnal hypoxia 799.02 Active Fabiola Johnson LAUNDRY MARKER SUPERVISOR Hypoxemia Neck pain 723.1 Resolved Vishal [...] each nostril daily for allergies FLUTICASONE PROPIONATE 41769828144 Active Suzan Boo APRN Active GUAIFENESIN-CODEINE 100-10 MG/5ML SYRP 5ml every 4 to 6 hours as needed for cough GUAIFENESIN-CODEINE 72527196091 Active Ahmet Carbajal MD Active PREDNISONE 20 MG TABS 2 daily for 5 days then 1 daily for 5 days PREDNISONE 81172283924 Active Ahmet Carbajal MD Active LAMICTAL 100 MG ORAL TABS 1 tab q.d LAMOTRIGINE 61968637772 Active Ahmet Carbajal MD Active BENADRYL 25 MG CAP 4 po at bedtime for insomnia DIPHENHYDRAMINE HCL 75171965342 No Longer Active Ahmet Carbajal MD Active ADVAIR DISKUS 250-50 MCG/DOSE INH AEPB 1 puff twice a day for asthma FLUTICASONE-SALMETEROL 31140203160 No Longer Active Ahmet Carbajal MD Active KLONOPIN 1 MG ORAL TABS 1 tab po TID CLONAZEPAM 40955699015 No Longer Active Ahmet Carbajal MD Active ABILIFY MAINTENA 400 MG IM SUSR 400mg injection every 26 days ARIPIPRAZOLE 24436630534 No Longer Active Ahmet Carbajal MD Active HALOPERIDOL 10 MG ORAL TABS 1 tab q.d HALOPERIDOL 18503001475 Active Ahmet Carbajal MD Active ASPIRIN 325 MG ORAL TABS 1 tab q.d ASPIRIN 54541109536 Active Ahmet Carbajal MD Active HYDROCODONE-ACETAMINOPHEN 5-325 MG ORAL TABS 1 tab two times a day HYDROCODONE-ACETAMINOPHEN 61068637011 Active Ahmet Carbajal MD Active TRAMADOL HCL 50 MG TABS 1/2-1 tab TID PRN TRAMADOL HCL 67553331652 No Longer Active Ahmet Carbajal MD Active BACTRIM DS 800-160 MG TABS 1 twice a day SULFAMETHOXAZOLE- TRIMETHOPRIM 24411336851 No Longer Active Ahmet Carbajal MD Active PROAIR HFA 108 (90 BASE) MCG/ACT AERS 2 puffs four times a day as needed 2015 ALBUTEROL SULFATE 05375873691 Active Ahmet Carbajal MD Active EQ NICOTINE 21 MG/24HR TRANS PT24 Apply daily to stop smoking NICOTINE 10789407059 Active Ahmet Carbajal MD Active MONISTAT 7 COMBO PACK WOODROW 100 & 2 MG-% (9GM) VAG KIT 1 applicatorful per vagina q pm x 7 MICONAZOLE NITRATE 69257439244 No Longer Active Ahmet Carbajal MD Active FLAGYL 500 MG TAB 1 tablet by mouth bid METRONIDAZOLE 19246914416 No Longer Active Ahmet Carbajal MD Active OXYCODONE HCL ER 10 MG ORAL T12A 1/2 tab by mouth every 4 hours prn OXYCODONE HCL 59245150470 No Longer Active Ahmet Carbajal MD Active METHYLPREDNISOLONE 4 MG ORAL TABS po daily METHYLPREDNISOLONE 69309799625 No Longer Active Ahmet Carbajal MD Active LEVOFLOXACIN 500 MG ORAL TABS po daily LEVOFLOXACIN 30467992942 No Longer Active Ahmet Carbajal MD Active VIIBRYD 10 MG ORAL TABS Take 1 tablet once a day VILAZODONE HCL 96383547232 No Longer Active Ahmet Carbajal MD Active TOPAMAX 50 MG ORAL TABS 1 tab twice daily TOPIRAMATE 37329509187 No Longer Active Ahmet Carbajal MD Active DICLOFENAC SODIUM 50 MG TBEC 1 tablet by mouth four times daily PRN Pain 2015 DICLOFENAC SODIUM 23546627381 No Longer Active Ahmet Carbajal MD Active ADZENYS XR-ODT 6.3 MG ORAL TBED 1 tab po daily for ADHD AMPHETAMINE 88014952789 No Longer Active Ahmet Carbajal MD Active CHANTIX 1 MG TABS 1 twice a day to help quit smoking VARENICLINE TARTRATE 50377739455 No Longer Active Dipika Burgos MD Active CHANTIX STARTING MONTH EARNEST 0.5 MG X 11 & 1 MG X 42 TABS take as directed 2015 VARENICLINE TARTRATE 95568007917 No Longer Active Dipika Burgos MD Active TESSALON PERLES 100 MG CAP 1 to 2 tablets by mouth 3 times daily as needed for cough BENZONATATE 85220304726 No Longer Active Luigi Martínez LAUNDRY MARKER SUPERVISOR Active IMITREX 50 MG ORAL TABS 0.5 po x 1 PRN Headache. May repeat dose x 1 in 2 hours if needed SUMATRIPTAN SUCCINATE 84970203663 Active TAMARA Casey Active HYDROCODONE-ACETAMINOPHEN 5-325 MG TABS 1 to 2 four times a day as needed for pain use until can be seen by specialist HYDROCODONE- ACETAMINOPHEN 54136250670 No Longer Active Vishal Hui MD Active PROAIR HFA 108 (90 BASE) MCG/ACT AERS 2 puffs four times a day as needed 2015 ALBUTEROL SULFATE 36239065142 No Longer Active Vishal Hui MD Active PREDNISONE 20 MG TABS 2 daily for 5 days then 1 daily for 5 days PREDNISONE 21565468696 No Longer Active Vishal Hui MD Active ZITHROMAX Z-EARNEST 250 MG TABS 2 today and then 1 daily for 4 days AZITHROMYCIN 88262534740 No Longer Active Vishal Hui MD Active DICLOFENAC POTASSIUM TABS Take 1 tablet twice a day (pt. is not sure of the dose.) DICLOFENAC POTASSIUM TABS 79502158697 No Longer Active Vishal Hui MD Active VERAPAMIL HCL ER 120 MG ORAL CR-TABS Take 1 tablet by mouth twice a day. VERAPAMIL HCL 08662578442 Active Vishal Hui MD Active FLAGYL 500 MG TAB 1 tablet by mouth bid METRONIDAZOLE 12181414251 No Longer Active Vishal Hui MD Active FLUTICASONE PROPIONATE 50 MCG/ACT SUSP 2 sprays each nostril daily before bed. FLUTICASONE PROPIONATE 91255000111 Active Fabiola Johnson APRN Active VALIUM 5 MG TAB Take 1-2 tablets daily DIAZEPAM 24011375160 No Longer Active Fabiola Johnson APRN Active METOPROLOL TARTRATE 25 MG ORAL TABS 1/2 tablet twice daily for heart rate and blood pressure METOPROLOL TARTRATE 61177454495 No Longer Active Fabiola Johnson APRN Active MIRALAX ORAL POWD 17GMS DAILY IN WATER POLYETHYLENE GLYCOL 3350 24451819378 Active Vishal Hui MD Active MIRALAX PACK 1 po qd PRN Constipation POLYETHYLENE GLYCOL 3350 49659491412 No Longer Active Ahmet Carbajal MD Active MINIPRESS 2 MG CAPS 4 cap po at night PRAZOSIN HCL 59000099965 No Longer Active Ahmet Carbajal MD Active PIROXICAM 20 MG CAPS 1 cap po qd PRN Pain PIROXICAM 93075615021 No Longer Active Ahmet Carbajal MD Active TRAMADOL HCL 50 MG TABS 1-2 po TID PRN Pain TRAMADOL HCL 44683221100 No Longer Active Ahmet Carbajal MD Active METOPROLOL TARTRATE 50 MG TAB 1 po bid METOPROLOL TARTRATE 66314771982 No Longer Active Ahmet Carbajal MD Active ABILIFY 15 MG ORAL TABS 1 tab daily ARIPIPRAZOLE 74258066600 No Longer Active Ahmet Carbajal MD Active PROZAC 20 MG ORAL CAPS 1 tab daily FLUOXETINE HCL 67856242196 No Longer Active Ahmet Carbajal MD Active AMBIEN 5 MG ORAL TABS 1 tab at bedtime ZOLPIDEM TARTRATE 24311459032 No Longer Active Ahmet Carbajal MD Active PREDNISONE 20 MG TAB 2 tabs daily for 4 days, 1 tab daily for 4 days, 1/2 tab daily for 4 days PREDNISONE 97341308621 No Longer Active Ahmet Carbajal MD Active KEFLEX 500 MG CAP 1 po TID x 10 days CEPHALEXIN 38413109634 No Longer Active Vishal Hui MD Active SAPHRIS 5 MG SUBL 1 po bid ASENAPINE MALEATE 91390257929 No Longer Active Jillina Frazelephraim LAUNDRY MARKER SUPERVISOR Active LATUDA 80 MG TABS Take one by mouth daily LURASIDONE HCL 83565474760 No Longer Active Jillina Frazell LAUNDRY MARKER SUPERVISOR Active AMLODIPINE BESYLATE 5 MG TABS 1 tablet by mouth daily AMLODIPINE BESYLATE 76156331309 No Longer Active Jillina Fradwightl LAUNDRY MARKER SUPERVISOR Active AMITRIPTYLINE HCL 100 MG TAB one at hs AMITRIPTYLINE HCL 09991865559 No Longer Active Vishal Hui MD Active TRAZODONE HCL 100 MG TAB take 1 at bedtime TRAZODONE HCL 60812987117 No Longer Active Vishal Hui MD Active VYVANSE 40 MG CAPS 1 daily, LISDEXAMFETAMINE DIMESYLATE 40848842260 No Longer Active Vishal Hui MD Active IBUPROFEN 600 MG TAB 1 po TID PRN IBUPROFEN 91609265706 No Longer Active Vishal Hui MD Active PROZAC 20 MG CAP Take one by mouth daily FLUOXETINE HCL 36664098858 No Longer Active Vishal Hui MD Active ZOFRAN 4 MG TABS 1 po q6hr PRN Nausea ONDANSETRON HCL Active Vishal Hui MD Active BACTRIM DS 800-160 MG TABS 1 pill by mouth twice daily SULFAMETHOXAZOLE-TRIMETHOPRIM 91343203027 No Longer Active Sahara Rodriguez MD PhD Active DIFLUCAN 150 MG TAB 1 tablet by mouth daily FLUCONAZOLE 14663922185 No Longer Active Vishal Hui MD Active TIZANIDINE HCL 4 MG TABS 1 po q6hr PRN Muscle Spasm/Back Pain TIZANIDINE HCL 86202414406 Active Vishal Hui MD Active CLINDAMYCIN HCL 150 MG CAPS 1 four times a day CLINDAMYCIN HCL 12368338778 No Longer Active Neeraj Collins MD Active KEFLEX 500 MG ORAL CAPS 1 cap QID by mouth CEPHALEXIN 74432224908 No Longer Active Neeraj Collins MD Active DIFLUCAN 150 MG TABS 1 pill every other day x 2 doses FLUCONAZOLE 84188257938 No Longer Active Sahara Rodriguez MD PhD Active MELATONIN 3 MG CAPS 2 po q hs MELATONIN 39378022475 No Longer Active Sahara Rodriguez MD PhD Active MULTIVITAMINS CAPS Take one by mouth daily MULTIPLE VITAMIN 76517471010 No Longer Active Sahara Rodriguez MD PhD Active BACTRIM DS 800-160 MG TAB 1 tab by mouth twice daily TRIMETHOPRIM-SULFAMETHOXAZOLE 75743014321 No Longer Active Sahara Rodriguez MD PhD Active [facility] PROBIOTIC ORAL CHEW 2 daily po PROBIOTIC PRODUCT 22198053746 No Longer Active Sahara Rodriguez MD PhD Active BACTRIM DS 800-160 MG TABS 1 po BID x 7 days SULFAMETHOXAZOLE-TRIMETHOPRIM 46144393718 No Longer Active Vishal Hui MD Active CHANTIX STARTING MONTH EARNEST 0.5 MG X 11 & 1 MG X 42 TABS 0.5mg daily for 3 days , then 0.5mg BID for 4 days, then 1mg BID VARENICLINE TARTRATE 15165165391 No Longer Active TAMARA Gray Active VERAPAMIL HCL CR 120 MG TAB CR 1 po bid VERAPAMIL HCL 42073367759 No Longer Active Vishal Hui MD Active METOPROLOL SUCCINATE 50 MG TB24 1 tablet by mouth daily METOPROLOL SUCCINATE 85294495633 No Longer Active Vishal Hui MD Active SAPHRIS 10 MG SUBL 1 tab po bid ASENAPINE MALEATE 84223794528 No Longer Active Vishal Hui MD Active LISINOPRIL 20 MG TABS 1 tab po qd LISINOPRIL 63186750290 No Longer Active Vishal Hui MD Active LATUDA 20 MG TABS Take one by mouth daily LURASIDONE HCL 93090428568 No Longer Active Vishal Hui MD Active TRAZODONE HCL 50 MG TABS 1/2 tab po qd prn for anxiety TRAZODONE HCL 16296528333 No Longer Active Vishal Hui MD Active OMEPRAZOLE 20 MG TBEC 1 po q a.m. 30min prior to first food intake OMEPRAZOLE 18186116908 Active Vishal Hui MD Active RANITIDINE HCL 150 MG CAPS 1 twice a day RANITIDINE HCL 72898031302 Active Jillina Mauricio LAUNDRY MARKER SUPERVISOR Active LINZESS 290 MCG CAPS Take one by mouth daily LINACLOTIDE 85126310047 No Longer Active Vishal Hui MD Active SAPHRIS 5 MG SUBL 1 tab po qd ASENAPINE MALEATE 77690596253 No Longer Active Vishal Hui MD Active ZALEPLON 10 MG CAPS 1 cap po every other night ZALEPLON 83117258404 No Longer Active Vishal Hui MD Active LYRICA 50 MG CAPS 1 tab po TID PREGABALIN 63824498817 No Longer Active Vishal Hui MD Active LORATADINE 10 MG TABS 1 tab po qd LORATADINE 44463621786 No Longer Active Vishal Hui MD Active VERAPAMIL HCL ER 180 MG CR-TABS 1 tab po bid VERAPAMIL HCL 21039565053 No Longer Active Vishal Hui MD Active MIRALAX POWD 1 capfull once daily POLYETHYLENE GLYCOL 3350 52362176190 No Longer Active Vishal Hui MD Active PREDNISONE 20 MG TABS 1 tab po qd PREDNISONE 37613717010 No Longer Active Renzo Thornton DO Active LEVOFLOXACIN 500 MG TABS 1 tab po qd LEVOFLOXACIN 80022070297 No Longer Active Renzo Thornton DO Active BUSPIRONE HCL 15 MG TABS 1 tab po TID BUSPIRONE HCL 31113231804 No Longer Active Renzo Thornton DO Active BENZTROPINE MESYLATE 1 MG TABS 1 tab po qd BENZTROPINE MESYLATE 53018227566 No Longer Active Renzo Thornton DO Active ATENOLOL 25 MG TABS 1 tab po qd ATENOLOL 54504801288 No Longer Active Renzo Thornton DO Active ESCITALOPRAM OXALATE 20 MG TABS 1 tab po qd ESCITALOPRAM OXALATE 03546474337 No Longer Active Renzo Thornton DO Active ADVAIR DISKUS 250-50 MCG/DOSE AEPB 1 puff BID FLUTICASONE-SALMETEROL 27842607349 No Longer Active Renzo Thornton DO Active PREDNISONE 20 MG TAB 2 tabs daily for 3 days, 1 tab daily for 3 days, 1/2 tab daily for 2 days PREDNISONE 44315504669 No Longer Active Vishal Hui MD Active CEFDINIR 300 MG CAPS by mouth twice a day CEFDINIR 41511522512 No Longer Active Vishal Hui MD Active LANSOPRAZOLE 30 MG CPDR 1 cap po qd LANSOPRAZOLE 17893820894 No Longer Active Vishal Hui MD Active BACLOFEN 20 MG TABS 1 tab po tid BACLOFEN 87126118210 No Longer Active Vishal Hui MD Active ADVAIR DISKUS 250-50 MCG/DOSE AEPB 1 puff BID ADVAIR DISKUS 250-50 MCG/DOSE AEPB FLUTICASONE-SALMETEROL Inactive ESCITALOPRAM OXALATE 20 MG TABS 1 tab po qd ESCITALOPRAM OXALATE 20 MG TABS 186454 ESCITALOPRAM OXALATE Inactive ATENOLOL 25 MG TABS 1 tab po qd ATENOLOL 25 MG TABS 976191 ATENOLOL Inactive BENZTROPINE MESYLATE 1 MG TABS 1 tab po qd BENZTROPINE MESYLATE 1 MG TABS 750322 BENZTROPINE MESYLATE Inactive BUSPIRONE HCL 15 MG TABS 1 tab po TID BUSPIRONE HCL 15 MG TABS 815548 BUSPIRONE HCL Inactive LEVOFLOXACIN 500 MG TABS 1 tab po qd LEVOFLOXACIN 500 MG TABS 705283 LEVOFLOXACIN Inactive PREDNISONE 20 MG TABS 1 tab po qd PREDNISONE 20 MG TABS 254852 PREDNISONE Inactive MIRALAX POWD 1 capfull once daily MIRALAX POWD 626124 POLYETHYLENE GLYCOL 3350 Inactive VERAPAMIL HCL ER 180 MG CR-TABS 1 tab po bid VERAPAMIL HCL ER 180 MG CR-TABS VERAPAMIL HCL Inactive LORATADINE 10 MG TABS 1 tab po qd LORATADINE 10 MG TABS 415670 LORATADINE Inactive LYRICA 50 MG CAPS 1 tab po TID LYRICA 50 MG CAPS PREGABALIN Inactive ZALEPLON 10 MG CAPS 1 cap po every other night ZALEPLON 10 MG CAPS 692139 ZALEPLON Inactive SAPHRIS 5 MG SUBL 1 tab po qd SAPHRIS 5 MG SUBL ASENAPINE MALEATE Inactive TRAZODONE HCL 50 MG TABS 1/2 tab po qd prn for anxiety TRAZODONE HCL 50 MG TABS 501335 TRAZODONE HCL Inactive LATUDA 20 MG TABS Take one by mouth daily LATUDA 20 MG TABS LURASIDONE HCL Inactive LISINOPRIL 20 MG TABS 1 tab po qd LISINOPRIL 20 MG TABS 678589 LISINOPRIL Inactive SAPHRIS 10 MG SUBL 1 [...] twice daily BACTRIM DS 800-160 MG TAB 771438 TRIMETHOPRIM-SULFAMETHOXAZOLE Inactive MULTIVITAMINS CAPS Take one by mouth daily MULTIVITAMINS CAPS MULTIPLE VITAMIN Inactive MELATONIN 3 MG CAPS 2 po q hs MELATONIN 3 MG CAPS 534979 MELATONIN Inactive KEFLEX 500 MG ORAL CAPS 1 cap QID by mouth KEFLEX 500 MG ORAL CAPS 504571 CEPHALEXIN Inactive CLINDAMYCIN HCL 150 MG CAPS 1 four times a day CLINDAMYCIN HCL 150 MG CAPS 910981 CLINDAMYCIN HCL Inactive DIFLUCAN 150 MG TAB 1 tablet by mouth daily DIFLUCAN 150 MG TAB 137956 FLUCONAZOLE Inactive PROZAC 20 MG CAP Take one by mouth daily PROZAC 20 MG CAP 214137 FLUOXETINE HCL Inactive IBUPROFEN 600 MG TAB 1 po TID PRN IBUPROFEN 600 MG TAB 416608 IBUPROFEN Inactive VYVANSE 40 MG CAPS 1 daily, VYVANSE 40 MG CAPS LISDEXAMFETAMINE DIMESYLATE Inactive TRAZODONE HCL 100 MG TAB take 1 at bedtime TRAZODONE HCL 100 MG TAB 902944 TRAZODONE HCL Inactive AMITRIPTYLINE HCL 100 MG TAB one at hs AMITRIPTYLINE HCL 100 MG TAB 164529 AMITRIPTYLINE HCL Inactive AMLODIPINE BESYLATE 5 MG TABS 1 tablet by mouth daily AMLODIPINE BESYLATE 5 MG TABS 534491 AMLODIPINE BESYLATE Inactive LATUDA 80 MG TABS Take one by mouth daily LATUDA 80 MG TABS LURASIDONE HCL Inactive SAPHRIS 5 MG SUBL 1 po bid SAPHRIS 5 MG SUBL ASENAPINE MALEATE Inactive PREDNISONE 20 MG TAB 2 tabs daily for 4 days, 1 tab daily for 4 days, 1/2 tab daily for 4 days PREDNISONE 20 MG TAB 832955 PREDNISONE Inactive AMBIEN 5 MG ORAL TABS 1 tab at bedtime AMBIEN 5 MG ORAL TABS 782361 ZOLPIDEM TARTRATE Inactive PROZAC 20 MG ORAL CAPS 1 tab daily PROZAC 20 MG ORAL CAPS 437796 FLUOXETINE HCL Inactive ABILIFY 15 MG ORAL TABS 1 tab daily ABILIFY 15 MG ORAL TABS 496386 ARIPIPRAZOLE Inactive METOPROLOL TARTRATE 50 MG TAB 1 po bid METOPROLOL TARTRATE 50 MG TAB 558639 METOPROLOL TARTRATE Inactive TRAMADOL HCL 50 MG TABS 1-2 po TID PRN Pain TRAMADOL HCL 50 MG TABS 613446 TRAMADOL HCL Inactive PIROXICAM 20 MG CAPS 1 cap po qd PRN Pain PIROXICAM 20 MG CAPS 119521 PIROXICAM Inactive MINIPRESS 2 MG CAPS 4 cap po at night MINIPRESS 2 MG CAPS 601522 PRAZOSIN HCL Inactive MIRALAX PACK 1 po qd PRN Constipation MIRALAX PACK 581472 POLYETHYLENE GLYCOL 3350 Inactive METOPROLOL TARTRATE 25 MG ORAL TABS 1/2 tablet twice daily for heart rate and blood pressure METOPROLOL TARTRATE 25 MG ORAL TABS 744774 METOPROLOL TARTRATE Inactive VALIUM 5 MG TAB Take 1-2 tablets daily VALIUM 5 MG TAB 952238 DIAZEPAM Inactive FLAGYL 500 MG TAB 1 tablet by mouth bid FLAGYL 500 MG TAB 502168 METRONIDAZOLE Inactive DICLOFENAC POTASSIUM TABS Take 1 tablet twice a day (pt. is not sure of the dose.) DICLOFENAC POTASSIUM TABS DICLOFENAC POTASSIUM TABS Inactive ZITHROMAX Z-EARNEST 250 MG TABS 2 today and then 1 daily for 4 days ZITHROMAX Z-EARNEST 250 MG TABS 5182131 AZITHROMYCIN Inactive PREDNISONE 20 MG TABS 2 daily for 5 days then 1 daily for 5 days PREDNISONE 20 MG TABS 447197 PREDNISONE Inactive PROAIR HFA 108 (90 BASE) MCG/ACT AERS 2 puffs four times a day as needed 2015 PROAIR HFA 108 (90 BASE) MCG/ACT AERS ALBUTEROL SULFATE Inactive HYDROCODONE-ACETAMINOPHEN 5-325 MG TABS 1 to 2 four times a day as needed for pain use until can be seen by specialist HYDROCODONE- ACETAMINOPHEN 5-325 MG TABS 894661 HYDROCODONE-ACETAMINOPHEN Inactive TESSALON PERLES 100 MG CAP 1 to 2 tablets by mouth 3 times daily as needed for cough TESSALON PERLES 100 MG CAP 457955 BENZONATATE Inactive CHANTIX STARTING MONTH EARNEST 0.5 [...] Pain 2015 DICLOFENAC SODIUM 50 MG TBEC 447228 DICLOFENAC SODIUM Inactive TOPAMAX 50 MG ORAL TABS 1 tab twice daily TOPAMAX 50 MG ORAL TABS 962264 TOPIRAMATE Inactive VIIBRYD 10 MG ORAL TABS Take 1 tablet once a day VIIBRYD 10 MG ORAL TABS VILAZODONE HCL Inactive LEVOFLOXACIN 500 MG ORAL TABS po daily LEVOFLOXACIN 500 MG ORAL TABS 506775 LEVOFLOXACIN Inactive METHYLPREDNISOLONE 4 MG ORAL TABS po daily METHYLPREDNISOLONE 4 MG ORAL TABS 545120 METHYLPREDNISOLONE Inactive OXYCODONE HCL ER 10 MG ORAL T12A 1/2 tab by mouth every 4 hours prn OXYCODONE HCL ER 10 MG ORAL T12A OXYCODONE HCL Inactive FLAGYL 500 MG TAB 1 tablet by mouth bid FLAGYL 500 MG TAB 915254 METRONIDAZOLE Inactive MONISTAT 7 COMBO PACK WOODROW 100 & 2 MG-% (9GM) VAG KIT 1 applicatorful per vagina q pm x 7 MONISTAT 7 COMBO PACK WOODROW 100 & 2 MG-% (9GM) VAG KIT MICONAZOLE NITRATE Inactive BACTRIM DS 800-160 MG TABS 1 twice a day BACTRIM DS 800-160 MG TABS 574651 SULFAMETHOXAZOLE-TRIMETHOPRIM Inactive TRAMADOL HCL 50 MG TABS 1/2-1 tab TID PRN TRAMADOL HCL 50 MG TABS 565913 TRAMADOL HCL Inactive ABILIFY MAINTENA 400 MG IM SUSR 400mg injection every 26 days ABILIFY MAINTENA 400 MG IM SUSR ARIPIPRAZOLE Inactive KLONOPIN 1 MG ORAL TABS 1 tab po TID KLONOPIN 1 MG ORAL TABS 19740426 CLONAZEPAM Inactive ADVAIR DISKUS 250-50 MCG/DOSE INH AEPB 1 puff twice a day for asthma ADVAIR DISKUS 250-50 MCG/DOSE INH AEPB FLUTICASONE- SALMETEROL Inactive BENADRYL 25 MG CAP 4 po at bedtime for insomnia BENADRYL 25 MG CAP DIPHENHYDRAMINE HCL Inactive CEFDINIR 300 MG CAPS by mouth twice a day CEFDINIR 300 MG CAPS 469282 CEFDINIR Inactive PREDNISONE 20 MG TAB 2 tabs daily for 3 days, 1 tab daily for 3 days, 1/2 tab daily for 2 days PREDNISONE 20 MG TAB 654944 PREDNISONE Inactive BACTRIM DS 800-160 MG TABS 1 po BID x 7 days BACTRIM DS 800-160 MG TABS 19820521 SULFAMETHOXAZOLE-TRIMETHOPRIM Inactive DIFLUCAN 150 MG TABS 1 pill every other day x 2 doses DIFLUCAN 150 MG TABS 484679 FLUCONAZOLE Inactive BACTRIM DS 800-160 MG TABS 1 pill by mouth twice daily BACTRIM DS 800-160 MG TABS 19820521 SULFAMETHOXAZOLE-TRIMETHOPRIM Inactive KEFLEX 500 MG CAP 1 po TID x 10 days KEFLEX 500 MG CAP 674659 CEPHALEXIN Inactive Advance Directives Directive Description Start [...] 369 10^3/MM^3 10*3/mm3 142-424 Lab Report: Chlamydia/GC [id number] - Lab chlamydia DNA probe NOT DETECTED NOT DETECTED Lab Report: Chlamydia/GC APTIMA/[id number] - Microbiology Neisseria gonorrhoeae DNA probe NOT DETECTED NOT DETECTED Lab Report: Comp. Metabolic Panel - Chemistry sodium, serum 142 mmol/L 407-740 2224/06/08 carbon dioxide, venous blood 27.6 mmol/L 21.0-32.0 potassium, serum 4.0 mmol/L 3.5-5.2 chloride, serum 105 mmol/L 98-107 blood glucose 95 mg/dL 65-110 urea nitrogen, blood 8 mg/dL 7-18 creatinine, serum 0.75 mg/dL 0.55-1.30 alanine aminotransferase (SGPT), serum 49 U/L 12-78 aspartate aminotransferase (SGOT), serum 28 U/L 15-37 calcium, serum 9.4 mg/dL 8.5-10.1 bilirubin, serum, total 0.30 mg/dL 0.00-1.00 sodium, serum 140 mmol/L 637-325 5735/08/08 carbon dioxide, venous blood 33.7 mmol/L 21.0-32.0 [...] mg/dL Encounters Code Encounter Date Provider Facility CPT-50861 Level 3 Est. Patient 10:40:11 DRIER TENDER Ahmet Carbajal MD [facility] CPT-64745 Level 3 Est. Patient 15:07:06 DRIER TENDER Neeraj Collins MD [facility] CPT-32635 Level 4 Est. Patient 14:45:00 DRIER TENDER Ahmet Carbajal MD [facility] CPT-81552 Level 3 Est. Patient 13:59:59 CDT Luigi Martínez APRN [facility] CPT-08912 Level 3 Est. Patient 18:18:53 CDT Neeraj Collins MD [facility] CPT-94466 Level 3 Est. Patient 15:50:44 CDT Vishal Hui MD [facility] CPT-39784 Level 3 Est. Patient 11:36:17 CDT Ahmet Carbajal MD [facility] CPT-60218 Level 3 Est. Patient 13:29:16 CDT Vishal Hui MD [facility] CPT-00168 Level 3 Est. Patient 14:27:52 CDT Neeraj Collins MD [facility] CPT-76486 Level 3 Est. Patient 08:56:03 CDT Luigi Martínez [facility] CPT-80078 Level 4 Est. Patient 12:11:48 CDT Fabiola Johnson [facility] CPT-12180 Level 3 New Patient 16:53:37 CDT Albert Caldera MD [facility] CPT-72841 Level 3 Est. Patient 11:25:49 CDT Renzo Thornton DO [facility] CPT-03390 Level 3 Est. Patient 15:22:01 CDT Ahmet Carbajal MD [facility] CPT-28330 Level 4 Est. Patient 09:00:51 DRIER TENDER Vishal Hui MD [facility] CPT-96914 Level 3 Est. Patient 11:37:33 DRIER TENDER Vishal Hui MD [facility] CPT-99783 Level 3 Est. Patient 08:41:09 DRIER TENDER Vishal Hui MD [facility] CPT-92126 Level 4 Est. Patient 10:19:35 DRIER TENDER Vishal Hui MD [facility] CPT-38726 Level 3 Est. Patient 13:35:45 CDT Vishal Hui MD [facility] CPT-17806 Level 4 Est. Patient 10:08:37 CDT Vishal Hui MD [facility] CPT-54139 Level 3 Est. Patient 11:22:10 CDT Vishal Hui MD [facility] CPT-07067 Level 3 Est. Patient 11:03:32 CDT Sahara Rodriguez MD [facility]-28654 Level 3 Est. Patient 09:41:35 CDT Vishal Hui MD [facility] CPT-98491 Level 3 Est. Patient 12:00:41 CDT Neeraj Collins MD [facility] CPT-38129 Level 3 Est. Patient 09:16:24 CDT Vishal Hui MD [facility]-70877 Level 4 Est. Patient 13:59:09 CDT Neeraj Collins MD [facility]-22418 Level 3 Est. Patient 15:19:43 CDT Renzo Thornton DO [facility] CPT-79196 Level 3 Est. Patient 18:10:26 CDT Sahara Rodriguez MD [facility]-50251 Level 3 Est. Patient 14:49:50 CDT Vishal Hui MD [facility]-61236 Level 4 Est. Patient 18:41:46 CDT Neeraj Collins MD [facility]-63953 Level 4 Est. Patient 09:18:38 DRIER TENDER Vishal Hui MD [facility]-84328 Level 3 Est. Patient 14:43:55 DRIER TENDER Vishal Hui MD [facility]-42036 Level 3 Est. Patient 15:26:33 DRIER TENDER Sahara Rodriguez MD [facility]-08553 Level 3 Est. Patient 10:32:14 DRIER TENDER Vishal Hui MD [facility]-45932 Level 3 Est. Patient 15:12:52 DRIER TENDER Vishal Hui MD [facility] CPT-22551 Level 4 Est. Patient 09:19:27 CDT Vishal Hui MD [facility] CPT-85581 Level 3 Est. Patient 15:53:00 CDT Renzo Thornton [facility] CPT-32500 Level 3 Est. Patient 15:50:30 CDT Renzo Thornton [facility] CPT-75055 Level 3 Est. Patient 16:55:24 CDT Vishal Hui MD [facility] Procedures Code Procedure Name Date Entry Date Standard Description [id number] [facility] Annual Wellness Exam 09:30:58 DRIER TENDER CPT-70973 TSH - LAB USE ONLY 08:50:26 DRIER TENDER CPT-71199 CBC - LAB USE ONLY 08:50:26 DRIER TENDER CPT-46964 Venipuncture Draw Fee 08:50:26 DRIER TENDER CPT-67954 Abx/Therapy Injection 17:34:30 DRIER TENDER CPT-99659 Nexplanon Removal with Reinsertion 14:09:32 CDT CPT-J7307 Nexplanon (Implant) 14:09:32 CDT CPT-OV Office Visit 14:09:32 CDT CPT-34563 UA w micro - LAB USE ONLY 16:21:13 CDT CPT-54034 Wet Mount - LAB USE ONLY 16:21:13 CDT CPT-95389 First Vx - Ix admin for Medicare patients 14:37:47 CDT CPT-34783 Fluzone Preservative Free Intramuscular Suspension 14:37 :47 CDT CPT-65511 Abx/Therapy Injection 13:54:22 CDT CPT-11224 Abx/Therapy Injection 08:47:09 CDT CPT-93790 Abx/Therapy Injection 13:29:56 CDT CPT-92016 Abx/Therapy Injection 08:36:16 CDT CPT-50045 Wet Mount - LAB USE ONLY 17:44:58 CDT CPT-50242 UA w micro - LAB USE ONLY 17:44:58 CDT CPT-22045 CMP - LAB USE ONLY 17:44:58 CDT CPT-60136 Venipuncture Draw Fee 17:44:58 CDT CPT-83338 Cervical Min 4V - XRAY USE ONLY 09:01:40 CDT CPT-58017 Chest 2V Frontal and Lat - XRAY USE ONLY 11:06:31 CDT CPT-21867 EKG Trac and Interp - XRAY USE ONLY 11:31:43 CDT 08/26 CPT-J3420 Vitamin B12 1000mcg (Cyanocobalamin) 08:10:26 DRIER TENDER 04/12 CPT-01309 Abx/Therapy Injection 08:10:26 DRIER TENDER CPT-G0438 Initial Annual Wellness Exam 19:01:01 DRIER TENDER CPT-J3420 Vitamin B12 1000mcg (Cyanocobalamin) 16:57:46 CDT 08/14 CPT-44925 Recombivax HB Injection Suspension 5 MCG/0.5ML 08:37:50 DRIER TENDER CPT-24408 Immunization Single Admin 08:37:50 DRIER TENDER CPT-J3420 Vitamin B12 1000mcg (Cyanocobalamin) 08:32:16 DRIER TENDER 03/11 CPT-40194 Abx/Therapy Injection 08:32:16 DRIER TENDER CPT-37105 Chest 2V Frontal and Lat 11:46:38 DRIER TENDER CPT-40528 Venipuncture Draw Fee 09:12:45 DRIER TENDER CPT-J3420 Vitamin B12 1000mcg (Cyanocobalamin) 08:50:15 DRIER TENDER 02/08 CPT-11099 Abx/Therapy Injection 08:50:15 DRIER TENDER CPT-Cryo Cryotherapy 10:19:35 DRIER TENDER CPT-000 Give Appropriate Flu Vaccine 09:22:16 CDT CPT-J3420 Vitamin B12 1000mcg (Cyanocobalamin) 19:08:57 CDT 01/11 CPT-95918 Abx/Therapy Injection 19:08:57 CDT CPT-J3420 Vitamin B12 1000mcg (Cyanocobalamin) 08:19:08 CDT 12/11 CPT-84575 Abx/Therapy Injection 08:19:08 CDT CPT-J3420 Vitamin B12 1000mcg (Cyanocobalamin) 14:48:00 CDT 11/09 CPT-54279 Abx/Therapy Injection 14:47:59 CDT CPT-J3420 Vitamin B12 1000mcg (Cyanocobalamin) 08:34:04 CDT 10/09 CPT-13489 Abx/Therapy Injection 08:34:04 CDT CPT-J3420 Vitamin B12 1000mcg (Cyanocobalamin) 09:18:52 CDT 09/11 CPT-39626 Abx/Therapy Injection 09:18:52 CDT CPT-J3420 Vitamin B12 1000mcg (Cyanocobalamin) 08:35:44 CDT 09/04 CPT-82509 Abx/Therapy Injection 08:35:44 CDT CPT-73015 Immunization Single Admin 11:07:16 CDT CPT-34709 Hepatitis B adult IM 11:07:16 CDT CPT-J3420 Vitamin B12 1000mcg (Cyanocobalamin) 11:00:49 CDT 08/28 CPT-J1040 Depo Medrol 80 mg (Methyl Prednisolone Acetate) 11:00: 49 CDT CPT-25851 Abx/Therapy Injection 11:00:49 CDT CPT-J1040 Depo Medrol 80 mg (Methyl Prednisolone Acetate) 09:16: 23 CDT CPT-J3420 Vitamin B12 1000mcg (Cyanocobalamin) 08:27:05 CDT 08/20 CPT-94671 Abx/Therapy Injection 08:27:05 CDT CPT-09109 Recombivax HB Injection Suspension 5 MCG/0.5ML 10:00:41 CDT CPT-49967 Administration single or combination vaccine inc oral 10 :00:41 CDT CPT-34180 Sono transvag pelvis non OB uterus ovaries cervix 16:36: 57 CDT CPT-10612 LS spine comp w obliq 09:50:55 DRIER TENDER CPT-93675 Abd compl w upright 09:50:55 DRIER TENDER CPT-J1100 Decadron 4mg (Dexamethasone) 15:51:24 DRIER TENDER CPT-J1030 Depo Medrol 40 mg (Methyl Prednisolone Acetate) 15:51: 24 DRIER TENDER CPT-54015 Abx/Therapy Injection 15:51:24 DRIER TENDER CPT-J1100 Decadron 4mg (Dexamethasone) 15:26:33 DRIER TENDER CPT-J1030 Depo Medrol 40 mg (Methyl Prednisolone Acetate) 15:26: 33 DRIER TENDER CPT-75672 Sono retroperitoneal complete kidneys and bladder 17:15: 30 CDT CPT-28645 Abd compl w upright 16:09:25 CDT CPT-J1100 Decadron 8mg (Dexamethasone) 17:07:57 CDT CPT-21239 Abx/Therapy Injection 17:07:57 CDT CPT-J1100 Decadron 8mg (Dexamethasone) 16:55:24 CDT CPT-79440 Chest 2V Frontal and Lat 16:32:44 CDT
--- OUTSIDE RECORDS SUMMARY | 2016-11-04 16:29 | XMS REPORT ---
Author Author [facility] Organization [facility] Address [address] [place], [place] [id number] Phone [phone] Summary purpose TRANSITION OF CARE AUTO GENERATION [...] tests and/or laboratory data RESULTS Routine Urinalysis 65-72-176542:37:00 Result Normal Range Units Color YELLOW Clarity Clear Specific [place] 1.020 1.003-1.035 pH 6.5 4.5-8.0 Glucose NEGATIVE Bilirubin NEGATIVE Ketones NEGATIVE Protein NEGATIVE Urobilinogen 0.2 0-0.2 E.U./dL Nitrites NEGATIVE Blood NEGATIVE Leukocytes NEGATIVE WBCs 0-5 RBCs 0-5 Squamous Epithelial Few Bacteria 1+ Chemistry 74-02-202112:30:00 Result Normal Range Units Sodium 141 134-145 [...] to get blood with IV start Hematology 26-36-398162:30:00 Result Normal Range Units WBC 8.0 4.8-10.8 [...] EMR to get blood with IV start [place] % 9.0 0-10.0 % EMR to get blood with IV start Eos % 2.1 0-7.0 % EMR to get blood with IV start Baso % 0.6 0-2 % EMR to get blood with IV start Neutro # 4.5 1.5-7.5 103/uL EMR to get blood with IV start Lymph # 2.5 0.9-4.0 103/uL EMR to get blood with IV start [place] # 0.7 0-0.8 103/uL EMR to get blood with IV start Eos # 0.2 0-0.6 103/uL EMR to get blood with IV start Baso # 0.1 0-0.1 103/uL EMR to get blood with IV start Reference Lab ([facility]) 47-60-602755:30:00 Result Normal Range Units D-Dimer 120 0-400 ng/ml Body Fluid 20-36-916359:37:00 Result Normal Range Units pH 6.5 4.5-8.0 Cardiac 35-19-460319:30:00 Result Normal Range Units Troponin I < [...] should be interpreted with caution. Radiology Results 84-83-202988:13:00 Chest X-Ray - 2 View PACs Image [...] on 2015-06-02 at 14:13:18. Previous status was AL. 16-50-406339:30:00 Result Normal Range Units MPV 10.3 7.3-10.4 FL EMR to get blood with IV start History of procedures No procedures recorded for this patient visit. Functional status Functional Status Finding Observation Time Diet regular 44-14-597862:53 Abdomen Appearance obese 94-96-363429:53 Abdomen non-tender 21-55-331473:53 Bowel Sounds present 69-54-454241:53 Vick no 40-61-540733:53 Urination normal 48-97-682336:53 Quality sym/unlabored :53 Cough absent 74-98-326806:53 Secretions no :53 Breath Sounds RUL clear 13-32-934427:53 Breath Sounds RML clear 21-78-347782:53 Breath Sounds RLL clear 05-70-299575:53 Breath Sounds BENJA clear 87-81-634030:53 Breath Sounds LLL clear 03-08-360317:53 Airway natural 01-80-812106:53 Chest Tube no :53 Oxygen no 12-60-998976:30 Temp >100.4 no :53 Temp <96.8 no :53 Chills with rigors no :53 HR > 90bpm no 49-39-290101:53 Respirations > 20 no 25-42-626761:53 Systolic <90 no 52-35-468051:53 headache stiff neck no 67-14-998803:53 WBC > 53561 no 56-04-057470:53 IV Site Location R AC :35 IV Type peripheral :35 IV Site Information discontinued :35 IV Site Start Attmpt 1 times 62-78-138427:10 IV Site Festus 20 08-86-989065:10 IV Site Appearance WNL 00-37-342984:10 IV Site Color clear 76-86-050595:10 IV Site Patent yes 14-97-057896:10 Dressing Type occlusive 98-01-222238:10 Nursing Note SN assessments and notes reviewed. No changes needed. 06-02-2015 13:42 Vital signs Type Value Date Respiration Rate 19breaths per minute :30 Pulse 76beats per minute :30 Oxygen Saturation 100% :30 BP Systolic 113mmHg :30 BP Diastolic 64mmHg 09-24-390527:30 Temperature 98.1F 92-87-128549:30 Social history Type Value Smoking Status FORMER SMOKER Treatment Plan No treatment plan text is available for this visit. Hospital discharge instructions Dismissal Condition fair Disposition on DC home DC Inst/Educ Give yes Med/Side Effects Rev yes PNE Vac almost 10 yrs ago Flu Vac 2014 Tetanus Vac 2014
--- OUTSIDE RECORDS SUMMARY | 2016-11-04 16:31 | XMS REPORT | Clinical Summary ---
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 Dependence on other enabling machines and devices [...] 1 po TID x 10 days CEPHALEXIN 88610783061 No Longer Active Vishal Hui MD Active ABILIFY MAINTENA 400 MG IM SUSR Injection once per month ARIPIPRAZOLE 10598766880 Active Juliet Kimbrough APRN Active PREDNISONE 20 MG TAB 2 tabs daily for 4 days, 1 tab daily for 4 days, 1/2 tab daily for 4 days PREDNISONE 19145492335 Active Vishal Hui MD Active IMITREX 50 MG ORAL TABS 1/2 tab every 6 hours prn SUMATRIPTAN SUCCINATE 35939280345 Active Luigi Martínez APRN Active AMBIEN 5 MG ORAL TABS 1 tab at bedtime ZOLPIDEM TARTRATE 44522597287 Active Luigi Martínez APRN Active PROZAC 20 MG ORAL CAPS 1 tab daily FLUOXETINE HCL 57051284752 Active Luigi Martínez APRN Active ABILIFY 15 MG ORAL TABS 1 tab daily ARIPIPRAZOLE 39776125587 Active Luigi Martínez APRN Active MINIPRESS 2 MG CAPS 4 cap po at night PRAZOSIN HCL 26711385401 Active Luigi Martínez APRN Active TOPAMAX 50 MG ORAL TABS 1 tab twice daily TOPIRAMATE 36967596793 Active Vishal Hui MD Active SAPHRIS 5 MG SUBL 1 po bid ASENAPINE MALEATE 17282713663 No Longer Active Luigi Martínez APRN Active LATUDA 80 MG TABS Take one by mouth daily LURASIDONE HCL 88653073706 No Longer Active Luigi Martínez APRN Active AMLODIPINE BESYLATE 5 MG TABS 1 tablet by mouth daily AMLODIPINE BESYLATE 27329667255 No Longer Active Luigi Martínez APRN Active AMITRIPTYLINE HCL 100 MG TAB one at hs AMITRIPTYLINE HCL 37825480781 No Longer Active Vishal Hui MD Active TRAZODONE HCL 100 MG TAB take 1 at bedtime TRAZODONE HCL 25297374389 No Longer Active Vishal Hui MD Active VYVANSE 40 MG CAPS 1 daily, LISDEXAMFETAMINE DIMESYLATE 37122917261 No Longer Active Vishal Hui MD Active IBUPROFEN 600 MG TAB 1 po TID PRN IBUPROFEN 14702517464 No Longer Active Vishal Hui MD Active MIRALAX PACK 1 po qd PRN Constipation POLYETHYLENE GLYCOL 3350 92415289352 Active Vishal Hui MD Active PROZAC 20 MG CAP Take one by mouth daily FLUOXETINE HCL 96953486001 No Longer Active Vishal Hui MD Active ZOFRAN 4 MG TABS 1 po q6hr PRN Nausea ONDANSETRON HCL Active Vishal Hui MD Active BACTRIM DS 800-160 MG TABS 1 pill by mouth twice daily SULFAMETHOXAZOLE-TRIMETHOPRIM 21608070200 No Longer Active Sahara Rodriguez MD PhD Active DIFLUCAN 150 MG TAB 1 tablet by mouth daily FLUCONAZOLE 64534328105 No Longer Active Vishal Hui MD Active TIZANIDINE HCL 4 MG TABS 1 po q6hr PRN Muscle Spasm/Back Pain TIZANIDINE HCL 92975885262 Active Luigi Martínez APRN Active CLINDAMYCIN HCL 150 MG CAPS 1 four times a day CLINDAMYCIN HCL 27372939761 No Longer Active Neeraj Collins MD Active KEFLEX 500 MG ORAL CAPS 1 cap QID by mouth CEPHALEXIN 54633434779 No Longer Active Neeraj Collins MD Active DIFLUCAN 150 MG TABS 1 pill every other day x 2 doses FLUCONAZOLE 39444169690 No Longer Active Sahara Rodriguez MD PhD Active MELATONIN 3 MG CAPS 2 po q hs MELATONIN 67168905064 No Longer Active Sahara Rodriguez MD PhD Active MULTIVITAMINS CAPS Take one by mouth daily MULTIPLE VITAMIN 73434944882 No Longer Active Sahara Rodriguez MD PhD Active BACTRIM DS 800-160 MG TAB 1 tab by mouth twice daily TRIMETHOPRIM-SULFAMETHOXAZOLE 39556540834 No Longer Active Sahara Rodriguez MD PhD Active [facility] PROBIOTIC ORAL CHEW 2 daily po PROBIOTIC PRODUCT 76506527501 No Longer Active Sahara Rodriguez MD PhD Active BACTRIM DS 800-160 MG TABS 1 po BID x 7 days SULFAMETHOXAZOLE-TRIMETHOPRIM 11697278603 No Longer Active Vishal Hui MD Active CHANTIX STARTING MONTH EARNEST 0.5 MG X 11 & 1 MG X 42 TABS 0.5mg daily for 3 days , then 0.5mg BID for 4 days, then 1mg BID VARENICLINE TARTRATE 53421652052 No Longer Active TAMARA Gray Active METOPROLOL TARTRATE 50 MG TAB 1 po bid METOPROLOL TARTRATE 03663327420 Active Vishal Hui MD Active VERAPAMIL HCL CR 120 MG TAB CR 1 po bid VERAPAMIL HCL 17422417810 No Longer Active Vishal Hui MD Active METOPROLOL SUCCINATE 50 MG TB24 1 tablet by mouth daily METOPROLOL SUCCINATE 49461862587 No Longer Active Vishal Hui MD Active TRAMADOL HCL 50 MG TABS 1-2 po TID PRN Pain TRAMADOL HCL 52972382292 Active Vishal Hui MD Active SAPHRIS 10 MG SUBL 1 tab po bid ASENAPINE MALEATE 14126655107 No Longer Active Vishal Hui MD Active LISINOPRIL 20 MG TABS 1 tab po qd LISINOPRIL 57601502593 No Longer Active Vishal Hui MD Active BENADRYL 25 MG CAP 2 po tid prn anxiety DIPHENHYDRAMINE HCL 28390069883 Active Vishal Hui MD Active LATUDA 20 MG TABS Take one by mouth daily LURASIDONE HCL 84603980196 No Longer Active Vishal Hui MD Active TRAZODONE HCL 50 MG TABS 1/2 tab po qd prn for anxiety TRAZODONE HCL 80041442428 No Longer Active Vishal Hui MD Active PIROXICAM 20 MG CAPS 1 cap po qd PRN Pain PIROXICAM 19658313402 Active Vishal Hui MD Active OMEPRAZOLE 20 MG TBEC 1 po q a.m. 30min prior to first food intake OMEPRAZOLE 56591413128 Active Vishal Hui MD Active RANITIDINE HCL 150 MG CAPS 1 twice a day RANITIDINE HCL 36953667551 Active Vishal Hui MD Active LINZESS 290 MCG CAPS Take one by mouth daily LINACLOTIDE 03610106135 No Longer Active Vishal Hui MD Active SAPHRIS 5 MG SUBL 1 tab po qd ASENAPINE MALEATE 50622752787 No Longer Active Vishal Hui MD Active ZALEPLON 10 MG CAPS 1 cap po every other night ZALEPLON 01084135287 No Longer Active Vishal Hui MD Active LYRICA 50 MG CAPS 1 tab po TID PREGABALIN 17058744902 No Longer Active Vishal Hui MD Active LORATADINE 10 MG TABS 1 tab po qd LORATADINE 61426260299 No Longer Active Vishal Hui MD Active VERAPAMIL HCL ER 180 MG CR-TABS 1 tab po bid VERAPAMIL HCL 04149930968 No Longer Active Vishal Hui MD Active MIRALAX POWD 1 capfull once daily POLYETHYLENE GLYCOL 3350 61489597088 No Longer Active Vishal Hui MD Active PREDNISONE 20 MG TABS 1 tab po qd PREDNISONE 69627808318 No Longer Active Renzo Thornton DO Active LEVOFLOXACIN 500 MG TABS 1 tab po qd LEVOFLOXACIN 35757905336 No Longer Active Renzo Thornton DO Active BUSPIRONE HCL 15 MG TABS 1 tab po TID BUSPIRONE HCL 80731461175 No Longer Active Renzo Thornton DO Active BENZTROPINE MESYLATE 1 MG TABS 1 tab po qd BENZTROPINE MESYLATE 28441235290 No Longer Active Renzo Thornton DO Active ATENOLOL 25 MG TABS 1 tab po qd ATENOLOL 66929000373 No Longer Active Renzo Thornton DO Active ESCITALOPRAM OXALATE 20 MG TABS 1 tab po qd ESCITALOPRAM OXALATE 82071978669 No Longer Active Renzo Thornton DO Active ADVAIR DISKUS 250-50 MCG/DOSE AEPB 1 puff BID FLUTICASONE-SALMETEROL 02606115968 No Longer Active Renzo Thornton DO Active PREDNISONE 20 MG TAB 2 tabs daily for 3 days, 1 tab daily for 3 days, 1/2 tab daily for 2 days PREDNISONE 78984041311 No Longer Active Vishal Hui MD Active CEFDINIR 300 MG CAPS by mouth twice a day CEFDINIR 09557313962 No Longer Active Vishal Hui MD Active LANSOPRAZOLE 30 MG CPDR 1 cap po qd LANSOPRAZOLE 54310391128 No Longer Active Vishal Hui MD Active BACLOFEN 20 MG TABS 1 tab po tid BACLOFEN 01161401412 No Longer Active Vishal Hui MD Active ADVAIR DISKUS 250-50 MCG/DOSE AEPB 1 puff BID ADVAIR DISKUS 250-50 MCG/DOSE AEPB FLUTICASONE-SALMETEROL Inactive ESCITALOPRAM OXALATE 20 MG TABS 1 tab po qd ESCITALOPRAM OXALATE 20 MG TABS 885147 ESCITALOPRAM OXALATE Inactive ATENOLOL 25 MG TABS 1 tab po qd ATENOLOL 25 MG TABS 001220 ATENOLOL Inactive BENZTROPINE MESYLATE 1 MG TABS 1 tab po qd BENZTROPINE MESYLATE 1 MG TABS 882575 BENZTROPINE MESYLATE Inactive BUSPIRONE HCL 15 MG TABS 1 tab po TID BUSPIRONE HCL 15 MG TABS 560665 BUSPIRONE HCL Inactive LEVOFLOXACIN 500 MG TABS 1 tab po qd LEVOFLOXACIN 500 MG TABS 718558 LEVOFLOXACIN Inactive PREDNISONE 20 MG TABS 1 tab po qd PREDNISONE 20 MG TABS 992055 PREDNISONE Inactive MIRALAX POWD 1 capfull once daily MIRALAX POWD 932162 POLYETHYLENE GLYCOL 3350 Inactive VERAPAMIL HCL ER 180 MG CR-TABS 1 tab po bid VERAPAMIL HCL ER 180 MG CR-TABS VERAPAMIL HCL Inactive LORATADINE 10 MG TABS 1 tab po qd LORATADINE 10 MG TABS 226835 LORATADINE Inactive LYRICA 50 MG CAPS 1 tab po TID LYRICA 50 MG CAPS PREGABALIN Inactive ZALEPLON 10 MG CAPS 1 cap po every other night ZALEPLON 10 MG CAPS 724207 ZALEPLON Inactive SAPHRIS 5 MG SUBL 1 tab po qd SAPHRIS 5 MG SUBL ASENAPINE MALEATE Inactive TRAZODONE HCL 50 MG TABS 1/2 tab po qd prn for anxiety TRAZODONE HCL 50 MG TABS 552903 TRAZODONE HCL Inactive LATUDA 20 MG TABS Take one by mouth daily LATUDA 20 MG TABS LURASIDONE HCL Inactive LISINOPRIL 20 MG TABS 1 tab po qd LISINOPRIL 20 MG TABS 961675 LISINOPRIL Inactive SAPHRIS 10 MG SUBL 1 [...] twice daily BACTRIM DS 800-160 MG TAB 813677 TRIMETHOPRIM-SULFAMETHOXAZOLE Inactive MULTIVITAMINS CAPS Take one by mouth daily MULTIVITAMINS CAPS MULTIPLE VITAMIN Inactive MELATONIN 3 MG CAPS 2 po q hs MELATONIN 3 MG CAPS 402149 MELATONIN Inactive KEFLEX 500 MG ORAL CAPS 1 cap QID by mouth KEFLEX 500 MG ORAL CAPS 857868 CEPHALEXIN Inactive CLINDAMYCIN HCL 150 MG CAPS 1 four times a day CLINDAMYCIN HCL 150 MG CAPS 671887 CLINDAMYCIN HCL Inactive DIFLUCAN 150 MG TAB 1 tablet by mouth daily DIFLUCAN 150 MG TAB 845781 FLUCONAZOLE Inactive PROZAC 20 MG CAP Take one by mouth daily PROZAC 20 MG CAP 709100 FLUOXETINE HCL Inactive IBUPROFEN 600 MG TAB 1 po TID PRN IBUPROFEN 600 MG TAB 772987 IBUPROFEN Inactive VYVANSE 40 MG CAPS 1 daily, VYVANSE 40 MG CAPS LISDEXAMFETAMINE DIMESYLATE Inactive TRAZODONE HCL 100 MG TAB take 1 at bedtime TRAZODONE HCL 100 MG TAB 923012 TRAZODONE HCL Inactive AMITRIPTYLINE HCL 100 MG TAB one at hs AMITRIPTYLINE HCL 100 MG TAB 131297 AMITRIPTYLINE HCL Inactive AMLODIPINE BESYLATE 5 MG TABS 1 tablet by mouth daily AMLODIPINE BESYLATE 5 MG TABS 977500 AMLODIPINE BESYLATE Inactive LATUDA 80 MG TABS Take one by mouth daily LATUDA 80 MG TABS LURASIDONE HCL Inactive SAPHRIS 5 MG SUBL 1 po bid SAPHRIS 5 MG SUBL ASENAPINE MALEATE Inactive CEFDINIR 300 MG CAPS by mouth twice a day CEFDINIR 300 MG CAPS 576662 CEFDINIR Inactive PREDNISONE 20 MG TAB 2 tabs daily for 3 days, 1 tab daily for 3 days, 1/2 tab daily for 2 days PREDNISONE 20 MG TAB 194930 PREDNISONE Inactive BACTRIM DS 800-160 MG TABS 1 po BID x 7 days BACTRIM DS 800-160 MG TABS 19820521 SULFAMETHOXAZOLE-TRIMETHOPRIM Inactive DIFLUCAN 150 MG TABS 1 pill every other day x 2 doses DIFLUCAN 150 MG TABS 501466 FLUCONAZOLE Inactive BACTRIM DS 800-160 MG TABS 1 pill by mouth twice daily BACTRIM DS 800-160 MG TABS 19820521 SULFAMETHOXAZOLE-TRIMETHOPRIM Inactive KEFLEX 500 MG CAP 1 po TID x 10 days KEFLEX 500 MG CAP 092293 CEPHALEXIN Inactive Advance Directives Directive Description Start [...] % 11.6-14.8 platelet count 394 10^3/MM^3 10*3/mm3 194-981 4863/01/11 leukocyte count, blood 13.8 10^3/MM^3 10*3/mm3 4.6-10.2 [...] Panel - Chemistry sodium, serum 139 mmol/L 984-175 4490/12/03 carbon dioxide, venous blood 28.5 mmol/L 21.0-32.0 [...] 5.5 % 4.3-6.0 cholesterol, serum 159 mg/dL 455-955 2742/12/03 triglyceride, serum, fasting 118 mg/dL 30-200 HDL [...] ... - Chemistry sodium, serum 140 mmol/L 637-683 9867/05/28 potassium, serum 4.2 mmol/L 3.5-5.2 chloride, serum [...] Panel - Chemistry sodium, serum 141 mmol/L 318-392 1707 potassium, serum 4.3 mmol/L 3.5-5.2 chloride, serum 106 mmol/L 98-107 carbon dioxide, venous blood 25.7 mmol/L 21.0-32.0 blood glucose 119 mg/dL 65-110 urea nitrogen, blood 22 mg/dL 7-18 creatinine, serum 0.90 mg/dL 0.60-1.30 alanine aminotransferase (SGPT), serum 28 U/L 12-78 aspartate aminotransferase (SGOT), serum 13 U/L 15-37 calcium, serum 8.5 mg/dL 8.5-10.1 bilirubin, serum, total 0.20 mg/dL 0.00-1.00 sodium, serum 139 mmol/L 687-046 1094/12/22 carbon dioxide, venous blood 26.8 mmol/L 21.0-32.0 potassium, serum 4.2 mmol/L 3.5-5.2 chloride, serum 103 mmol/L 98-107 blood glucose 115 mg/dL 65-110 urea nitrogen, blood 20 mg/dL 7-18 creatinine, serum 0.90 mg/dL 0.55-1.30 alanine aminotransferase (SGPT), serum 38 U/L -78 aspartate aminotransferase (SGOT), serum 19 U/L 15-37 calcium, serum 8.6 mg/dL 8.5-10.1 bilirubin, serum, total 0.30 mg/dL 0.00-1.00 sodium, serum 139 mmol/L 449-340 9296/01/11 carbon dioxide, venous blood 26.6 mmol/L 21.0-32.0 [...] Rate - Chemistry sodium, serum 139 mmol/L 297-204 8898/12/11 carbon dioxide, venous blood 25.4 mmol/L 21.0-32.0 [...] semiquantitative 5.5 5.0-8.5 Lab Report: Varicella-Zoater Inga IgG,IgM/27762, HEP Be Antibody/556, RUB ... - Serology rubella antibody, serum, IgG 2.88 Encounters Code Encounter Date Provider Facility CPT-18558 Level 4 Est. Patient 09:00:51 [employer] INST[employer] Vishal Hui MD [facility] CPT-29227 Level 3 Est. 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 Patient 08:41:09 [employer]ASS INST[employer]ER Vishal Hui MD [facility] CPT-61248 Level 4 Est. Patient 10:19:35 [employer] INST[employer]ER Vishal Hui MD [facility] CPT-34593 Level 3 Est. Patient 13:35:45 CDT Vishal Hui MD [facility] CPT-60686 Level 4 Est. Patient 10:08:37 CDT Vishal Hui MD [facility]-61711 Level 3 Est. Patient 11:22:10 CDT Vishal Hui MD [facility] CPT-07493 Level 3 Est. Patient 11:03:32 CDT Sahara Rodriguez MD [facility]-37381 Level 3 Est. Patient 09:41:35 CDT Vishal Hui MD [facility]-29659 Level 3 Est. Patient 12:00:41 CDT Neeraj Collins MD [facility]-31003 Level 3 Est. Patient 09:16:24 CDT Vishal Hui MD [facility] CPT-83380 Level 4 Est. Patient 13:59:09 CDT Neeraj Collins MD [facility] CPT-41614 Level 3 Est. Patient 15:19:43 CDT Renzo Thornton DO [facility] CPT-29693 Level 3 Est. Patient 18:10:26 CDT Sahara Rodriguez MD [facility]-96097 Level 3 Est. Patient 14:49:50 CDT Vishal Hui MD [facility] CPT-44568 Level 4 Est. Patient 18:41:46 CDT Neeraj Collins MD [facility] CPT-42839 Level 4 Est. Patient 09:18:38 [employer]ATE [employer]ASS INST[employer]ER Vishal Hui MD [facility]-72354 Level 3 Est. Patient 14:43:55 [employer] INST[employer]ER Vishal Hui MD [facility] CPT-60045 Level 3 Est. Patient 15:26:33 [employer]ASS INST[employer]ER Sahara Rodriguez MD PhD [facility]-15097 Level 3 Est. Patient 10:32:14 [employer] INST[employer]ER Vishal Hui MD [facility] CPT-67713 Level 3 Est. Patient 15:12:52 [employer] INST[employer]ER Vishal Hui MD [facility] CPT-49861 Level 4 Est. Patient 09:19:27 CDT Vishal Hui MD [facility] CPT-69615 Level 3 Est. Patient 15:53:00 CDT Renzo Thornton [facility] CPT-57659 Level 3 Est. Patient 15:50:30 CDT Renzo Thornton [facility] CPT-04593 Level 3 Est. Patient 16:55:24 CDT Vishal Hui MD [facility] Procedures Code Procedure Name Date Entry Date Standard Description CPT-J3420 Vitamin B12 1000mcg (Cyanocobalamin) 08:10:26 [employer] 04/12 CPT-40706 Abx/Therapy Injection 08:10:26 [employer] IN[employer] CPT-G0438 Initial Annual Wellness Exam 19:01:01 [employer] IN[employer] CPT-J3420 Vitamin B12 1000mcg (Cyanocobalamin) 16:57:46 CDT 08/14 CPT-60705 Recombivax HB Injection Suspension 5 MCG/0.5ML 08:37:50 [employer] IN[employer]ER CPT-72159 Immunization Single Admin 08:37:50 [employer] IN[employer] CPT-J3420 Vitamin B12 1000mcg (Cyanocobalamin) 08:32:16 [employer] IN[employer]ER 03/11 CPT-82728 Abx/Therapy Injection 08:32:16 [employer] IN[employer] CPT-65940 Chest 2V Frontal and Lat 11:46:38 [employer] IN[employer]ER CPT-60219 Venipuncture Draw Fee 09:12:45 [employer] IN[employer] CPT-J3420 Vitamin B12 1000mcg (Cyanocobalamin) 08:50:15 [employer]ASS INST[employer]ER 02/08 CPT-57945 Abx/Therapy Injection 08:50:15 [employer]ATE [employer]ASS INST[employer]ER CPT-Cryo Cryotherapy 10:19:35 [employer] INST[employer]ER CPT-000 Give Appropriate Flu Vaccine 09:22:16 CDT CPT-J3420 Vitamin B12 1000mcg (Cyanocobalamin) 19:08:57 CDT 01/11 CPT-66800 Abx/Therapy Injection 19:08:57 CDT CPT-J3420 Vitamin B12 1000mcg (Cyanocobalamin) 08:19:08 CDT 12/11 CPT-95781 Abx/Therapy Injection 08:19:08 CDT CPT-J3420 Vitamin B12 1000mcg (Cyanocobalamin) 14:48:00 CDT 11/09 CPT-60911 Abx/Therapy Injection 14:47:59 CDT CPT-J3420 Vitamin B12 1000mcg (Cyanocobalamin) 08:34:04 CDT 10/09 CPT-33704 Abx/Therapy Injection 08:34:04 CDT CPT-J3420 Vitamin B12 1000mcg (Cyanocobalamin) 09:18:52 CDT 09/11 CPT-35001 Abx/Therapy Injection 09:18:52 CDT CPT-J3420 Vitamin B12 1000mcg (Cyanocobalamin) 08:35:44 CDT 09/04 CPT-08725 Abx/Therapy Injection 08:35:44 CDT CPT-22606 Immunization Single Admin 11:07:16 CDT CPT-62367 Hepatitis B adult IM 11:07:16 CDT CPT-J3420 Vitamin B12 1000mcg (Cyanocobalamin) 11:00:49 CDT 08/28 CPT-J1040 Depo Medrol 80 mg (Methyl Prednisolone Acetate) 11:00: 49 CDT CPT-39524 Abx/Therapy Injection 11:00:49 CDT CPT-J1040 Depo Medrol 80 mg (Methyl Prednisolone Acetate) 09:16: 23 CDT CPT-J3420 Vitamin B12 1000mcg (Cyanocobalamin) 08:27:05 CDT 08/20 CPT-40321 Abx/Therapy Injection 08:27:05 CDT CPT-90319 Recombivax HB Injection Suspension 5 MCG/0.5ML 10:00:41 CDT CPT-07973 Administration single or combination vaccine inc oral 10 :00:41 CDT CPT-97896 Sono transvag pelvis non OB uterus ovaries cervix 16:36: 57 CDT CPT-90329 LS spine comp w obliq 09:50:55 [employer] CPT-34708 Abd compl w upright 09:50:55 [employer] CPT-J1100 Decadron 4mg (Dexamethasone) 15:51:24 [employer]ATE [employer] IN[employer]ER CPT-J1030 Depo Medrol 40 mg (Methyl Prednisolone Acetate) 15:51: 24 [employer] IN[employer]ER CPT-18315 Abx/Therapy Injection 15:51:24 [employer]ATE [employer]ASS INST[employer]ER CPT-J1100 Decadron 4mg (Dexamethasone) 15:26:33 [employer]ATE [employer]ASS INST[employer]ER CPT-J1030 Depo Medrol 40 mg (Methyl Prednisolone Acetate) 15:26: 33 [employer]ASS INST[employer]ER CPT-91366 Sono retroperitoneal complete kidneys and bladder 17:15: 30 CDT CPT-04921 Abd compl w upright 16:09:25 CDT CPT-J1100 Decadron 8mg (Dexamethasone) 17:07:57 CDT CPT-27169 Abx/Therapy Injection 17:07:57 CDT CPT-J1100 Decadron 8mg (Dexamethasone) 16:55:24 CDT CPT-93294 Chest 2V Frontal and Lat 16:32:44 CDT
--- OUTSIDE RECORDS SUMMARY | 2016-11-04 16:33 | XMS REPORT | Clinical Summary ---
Author Author Admin, QIE Organization [employer] Address Unknown Phone Unavailable Allergies, Adverse Reactions, [...] specified Headache, atypical 784.0 Active Luigi Martínez BLOOD BANK ORDER CONTROL CLERK Headache Elevated blood glucose 790.29 Active Demetrius [...] tab every 6 hours prn SUMATRIPTAN SUCCINATE 22292320393 Active Jillina Frazell BLOOD BANK ORDER CONTROL CLERK Active AMBIEN 5 MG ORAL TABS 1 tab at bedtime ZOLPIDEM TARTRATE 69201128318 Active Jillina Frazell BLOOD BANK ORDER CONTROL CLERK Active PROZAC 20 MG ORAL CAPS 1 tab daily FLUOXETINE HCL 83896576061 Active Jillina Frazell BLOOD BANK ORDER CONTROL CLERK Active ABILIFY 15 MG ORAL TABS 1 tab daily ARIPIPRAZOLE 58573156352 Active Jillina Frazell BLOOD BANK ORDER CONTROL CLERK Active MINIPRESS 2 MG CAPS 4 cap po at night PRAZOSIN HCL 63892121209 Active Jillina Frazell BLOOD BANK ORDER CONTROL CLERK Active TOPAMAX 50 MG ORAL TABS 1 tab twice daily TOPIRAMATE 10196539099 Active Jillina Frazell BLOOD BANK ORDER CONTROL CLERK Active SAPHRIS 5 MG SUBL 1 po bid ASENAPINE MALEATE 50209739352 No Longer Active Jillina Frazell BLOOD BANK ORDER CONTROL CLERK Active LATUDA 80 MG TABS Take one by mouth daily LURASIDONE HCL 71823170251 No Longer Active Jillina Frazell BLOOD BANK ORDER CONTROL CLERK Active AMLODIPINE BESYLATE 5 MG TABS 1 tablet by mouth daily AMLODIPINE BESYLATE 90811059582 No Longer Active Pacollina Johnl BLOOD BANK ORDER CONTROL CLERK Active AMITRIPTYLINE HCL 100 MG TAB one at hs AMITRIPTYLINE HCL 34689775455 No Longer Active Vishal Hui MD Active TRAZODONE HCL 100 MG TAB take 1 at bedtime TRAZODONE HCL 96641928316 No Longer Active Vishal Hui MD Active VYVANSE 40 MG CAPS 1 daily, LISDEXAMFETAMINE DIMESYLATE 98523019176 No Longer Active Vishal Hui MD Active IBUPROFEN 600 MG TAB 1 po TID PRN IBUPROFEN 71963328108 No Longer Active Vishal Hui MD Active MIRALAX PACK 1 po qd PRN Constipation POLYETHYLENE GLYCOL 3350 20988482267 Active Vishal Hui MD Active PROZAC 20 MG CAP Take one by mouth daily FLUOXETINE HCL 13645701913 No Longer Active Vishal Hui MD Active ZOFRAN 4 MG TABS 1 po q6hr PRN Nausea ONDANSETRON HCL Active Vishal Hui MD Active BACTRIM DS 800-160 MG TABS 1 pill by mouth twice daily SULFAMETHOXAZOLE-TRIMETHOPRIM 09395978968 No Longer Active Sahara Rodriguez MD PhD Active DIFLUCAN 150 MG TAB 1 tablet by mouth daily FLUCONAZOLE 09544804334 No Longer Active Vishal Hui MD Active TIZANIDINE HCL 4 MG TABS 1 po q6hr PRN Muscle Spasm/Back Pain TIZANIDINE HCL 26680096001 Active Vishal Hui MD Active CLINDAMYCIN HCL 150 MG CAPS 1 four times a day CLINDAMYCIN HCL 43283458408 No Longer Active Neeraj Collins MD Active KEFLEX 500 MG ORAL CAPS 1 cap QID by mouth CEPHALEXIN 93205273589 No Longer Active Neeraj Collins MD Active DIFLUCAN 150 MG TABS 1 pill every other day x 2 doses FLUCONAZOLE 99035571033 No Longer Active Sahara Rodriguez MD PhD Active MELATONIN 3 MG CAPS 2 po q hs MELATONIN 80506328823 No Longer Active Sahara Rodriguez MD PhD Active MULTIVITAMINS CAPS Take one by mouth daily MULTIPLE VITAMIN 75349718440 No Longer Active Sahara Rodriguez MD PhD Active BACTRIM DS 800-160 MG TAB 1 tab by mouth twice daily TRIMETHOPRIM-SULFAMETHOXAZOLE 77304519121 No Longer Active Sahara Rodriguez MD PhD Active [facility] PROBIOTIC ORAL CHEW 2 daily po PROBIOTIC PRODUCT 87467747400 No Longer Active Sahara Rodriguez MD PhD Active BACTRIM DS 800-160 MG TABS 1 po BID x 7 days SULFAMETHOXAZOLE-TRIMETHOPRIM 79339510624 No Longer Active Vishal Hui MD Active CHANTIX STARTING MONTH EARNEST 0.5 MG X 11 & 1 MG X 42 TABS 0.5mg daily for 3 days , then 0.5mg BID for 4 days, then 1mg BID VARENICLINE TARTRATE 00464473261 No Longer Active TAMARA Gray Active METOPROLOL TARTRATE 50 MG TAB 1 po bid METOPROLOL TARTRATE 37845081552 Active Vishal Hui MD Active VERAPAMIL HCL CR 120 MG TAB CR 1 po bid VERAPAMIL HCL 81964767997 No Longer Active Vishal Hui MD Active METOPROLOL SUCCINATE 50 MG TB24 1 tablet by mouth daily METOPROLOL SUCCINATE 02284551620 No Longer Active Vishal Hui MD Active TRAMADOL HCL 50 MG TABS 1-2 po TID PRN Pain TRAMADOL HCL 68700694317 Active Vishal Hui MD Active SAPHRIS 10 MG SUBL 1 tab po bid ASENAPINE MALEATE 31006378018 No Longer Active Vishal Hui MD Active LISINOPRIL 20 MG TABS 1 tab po qd LISINOPRIL 41827322621 No Longer Active Vishal Hui MD Active BENADRYL 25 MG CAP 2 po tid prn anxiety DIPHENHYDRAMINE HCL 16646337768 Active Vishal Hui MD Active LATUDA 20 MG TABS Take one by mouth daily LURASIDONE HCL 76179412650 No Longer Active Vishal Hui MD Active TRAZODONE HCL 50 MG TABS 1/2 tab po qd prn for anxiety TRAZODONE HCL 39525436169 No Longer Active Vishal Hui MD Active PIROXICAM 20 MG CAPS 1 cap po qd PRN Pain PIROXICAM 19119438445 Active Vishal Hui MD Active OMEPRAZOLE 20 MG TBEC 1 po q a.m. 30min prior to first food intake OMEPRAZOLE 89509501486 Active Vishal Hui MD Active RANITIDINE HCL 150 MG CAPS 1 twice a day RANITIDINE HCL 72825494181 Active Vishal Hui MD Active LINZESS 290 MCG CAPS Take one by mouth daily LINACLOTIDE 73635559271 No Longer Active Vishal Hui MD Active SAPHRIS 5 MG SUBL 1 tab po qd ASENAPINE MALEATE 90700373998 No Longer Active Vishal Hui MD Active ZALEPLON 10 MG CAPS 1 cap po every other night ZALEPLON 39318346819 No Longer Active Vishal Hui MD Active LYRICA 50 MG CAPS 1 tab po TID PREGABALIN 37207268081 No Longer Active Vishal Hui MD Active LORATADINE 10 MG TABS 1 tab po qd LORATADINE 89095609606 No Longer Active Vishal Hui MD Active VERAPAMIL HCL ER 180 MG CR-TABS 1 tab po bid VERAPAMIL HCL 45720125803 No Longer Active Vishal Hui MD Active MIRALAX POWD 1 capfull once daily POLYETHYLENE GLYCOL 3350 66220044026 No Longer Active Vishal Hui MD Active PREDNISONE 20 MG TABS 1 tab po qd PREDNISONE 78129774671 No Longer Active Renzo Thornotn DO Active LEVOFLOXACIN 500 MG TABS 1 tab po qd LEVOFLOXACIN 01188017960 No Longer Active Renzo Thornton DO Active BUSPIRONE HCL 15 MG TABS 1 tab po TID BUSPIRONE HCL 76996993001 No Longer Active Renzo Thornton DO Active BENZTROPINE MESYLATE 1 MG TABS 1 tab po qd BENZTROPINE MESYLATE 06411570619 No Longer Active Renzo Thornton DO Active ATENOLOL 25 MG TABS 1 tab po qd ATENOLOL 43386233806 No Longer Active Renzo Thornton DO Active ESCITALOPRAM OXALATE 20 MG TABS 1 tab po qd ESCITALOPRAM OXALATE 97202582583 No Longer Active Renzo Thornton DO Active ADVAIR DISKUS 250-50 MCG/DOSE AEPB 1 puff BID FLUTICASONE-SALMETEROL 07757738568 No Longer Active Renzo Thornton DO Active PREDNISONE 20 MG TAB 2 tabs daily for 3 days, 1 tab daily for 3 days, 1/2 tab daily for 2 days PREDNISONE 93265215172 No Longer Active Vishal Hui MD Active CEFDINIR 300 MG CAPS by mouth twice a day CEFDINIR 68591031996 No Longer Active Vishal Hui MD Active LANSOPRAZOLE 30 MG CPDR 1 cap po qd LANSOPRAZOLE 20151664273 No Longer Active Vishal Hui MD Active BACLOFEN 20 MG TABS 1 tab po tid BACLOFEN 35482522847 No Longer Active Vishal Hui MD Active ADVAIR DISKUS 250-50 MCG/DOSE AEPB 1 puff BID ADVAIR DISKUS 250-50 MCG/DOSE AEPB FLUTICASONE-SALMETEROL Inactive ESCITALOPRAM OXALATE 20 MG TABS 1 tab po qd ESCITALOPRAM OXALATE 20 MG TABS 788426 ESCITALOPRAM OXALATE Inactive ATENOLOL 25 MG TABS 1 tab po qd ATENOLOL 25 MG TABS 379608 ATENOLOL Inactive BENZTROPINE MESYLATE 1 MG TABS 1 tab po qd BENZTROPINE MESYLATE 1 MG TABS 742682 BENZTROPINE MESYLATE Inactive BUSPIRONE HCL 15 MG TABS 1 tab po TID BUSPIRONE HCL 15 MG TABS 816512 BUSPIRONE HCL Inactive LEVOFLOXACIN 500 MG TABS 1 tab po qd LEVOFLOXACIN 500 MG TABS 228974 LEVOFLOXACIN Inactive PREDNISONE 20 MG TABS 1 tab po qd PREDNISONE 20 MG TABS 470737 PREDNISONE Inactive MIRALAX POWD 1 capfull once daily MIRALAX POWD 558196 POLYETHYLENE GLYCOL 3350 Inactive VERAPAMIL HCL ER 180 MG CR-TABS 1 tab po bid VERAPAMIL HCL ER 180 MG CR-TABS VERAPAMIL HCL Inactive LORATADINE 10 MG TABS 1 tab po qd LORATADINE 10 MG TABS 841244 LORATADINE Inactive LYRICA 50 MG CAPS 1 tab po TID LYRICA 50 MG CAPS PREGABALIN Inactive ZALEPLON 10 MG CAPS 1 cap po every other night ZALEPLON 10 MG CAPS 572545 ZALEPLON Inactive SAPHRIS 5 MG SUBL 1 tab po qd SAPHRIS 5 MG SUBL ASENAPINE MALEATE Inactive TRAZODONE HCL 50 MG TABS 1/2 tab po qd prn for anxiety TRAZODONE HCL 50 MG TABS 503606 TRAZODONE HCL Inactive LATUDA 20 MG TABS Take one by mouth daily LATUDA 20 MG TABS LURASIDONE HCL Inactive LISINOPRIL 20 MG TABS 1 tab po qd LISINOPRIL 20 MG TABS 197136 LISINOPRIL Inactive SAPHRIS 10 MG SUBL 1 [...] twice daily BACTRIM DS 800-160 MG TAB 837498 TRIMETHOPRIM-SULFAMETHOXAZOLE Inactive MULTIVITAMINS CAPS Take one by mouth daily MULTIVITAMINS CAPS MULTIPLE VITAMIN Inactive MELATONIN 3 MG CAPS 2 po q hs MELATONIN 3 MG CAPS 19950526 MELATONIN Inactive KEFLEX 500 MG ORAL CAPS 1 cap QID by mouth KEFLEX 500 MG ORAL CAPS 776936 CEPHALEXIN Inactive CLINDAMYCIN HCL 150 MG CAPS 1 four times a day CLINDAMYCIN HCL 150 MG CAPS 431876 CLINDAMYCIN HCL Inactive DIFLUCAN 150 MG TAB 1 tablet by mouth daily DIFLUCAN 150 MG TAB 717226 FLUCONAZOLE Inactive PROZAC 20 MG CAP Take one by mouth daily PROZAC 20 MG CAP 279769 FLUOXETINE HCL Inactive IBUPROFEN 600 MG TAB 1 po TID PRN IBUPROFEN 600 MG TAB 873654 IBUPROFEN Inactive VYVANSE 40 MG CAPS 1 daily, VYVANSE 40 MG CAPS LISDEXAMFETAMINE DIMESYLATE Inactive TRAZODONE HCL 100 MG TAB take 1 at bedtime TRAZODONE HCL 100 MG TAB 821384 TRAZODONE HCL Inactive AMITRIPTYLINE HCL 100 MG TAB one at hs AMITRIPTYLINE HCL 100 MG TAB 936640 AMITRIPTYLINE HCL Inactive AMLODIPINE BESYLATE 5 MG TABS 1 tablet by mouth daily AMLODIPINE BESYLATE 5 MG TABS 587503 AMLODIPINE BESYLATE Inactive LATUDA 80 MG TABS Take one by mouth daily LATUDA 80 MG TABS LURASIDONE HCL Inactive SAPHRIS 5 MG SUBL 1 po bid SAPHRIS 5 MG SUBL ASENAPINE MALEATE Inactive CEFDINIR 300 MG CAPS by mouth twice a day CEFDINIR 300 MG CAPS 373933 CEFDINIR Inactive PREDNISONE 20 MG TAB 2 tabs daily for 3 days, 1 tab daily for 3 days, 1/2 tab daily for 2 days PREDNISONE 20 MG TAB 788120 PREDNISONE Inactive BACTRIM DS 800-160 MG TABS 1 po BID x 7 days BACTRIM DS 800-160 MG TABS 276524 SULFAMETHOXAZOLE-TRIMETHOPRIM Inactive DIFLUCAN 150 MG TABS 1 pill every other day x 2 doses DIFLUCAN 150 MG TABS 082184 FLUCONAZOLE Inactive BACTRIM DS 800-160 MG TABS 1 pill by mouth twice daily BACTRIM DS 800-160 MG TABS 513172 SULFAMETHOXAZOLE-TRIMETHOPRIM Inactive Vital Signs Date Name Value [...] Panel - Chemistry sodium, serum 139 mmol/L 134-926 6104/12/03 carbon dioxide, venous blood 28.5 mmol/L 21.0-32.0 [...] 5.5 % 4.3-6.0 cholesterol, serum 159 mg/dL 712-914 9422/12/03 triglyceride, serum, fasting 118 mg/dL 30-200 HDL [...] ... - Chemistry sodium, serum 140 mmol/L 549-449 1967/05/28 potassium, serum 4.2 mmol/L 3.5-5.2 chloride, serum [...] Panel - Chemistry sodium, serum 141 mmol/L 916-158 2050 potassium, serum 4.3 mmol/L 3.5-5.2 chloride, serum 106 mmol/L 98-107 carbon dioxide, venous blood 25.7 mmol/L 21.0-32.0 blood glucose 119 mg/dL 65-110 urea nitrogen, blood 22 mg/dL 7-18 creatinine, serum 0.90 mg/dL 0.60-1.30 alanine aminotransferase (SGPT), serum 28 U/L 12-78 aspartate aminotransferase (SGOT), serum 13 U/L 15-37 calcium, serum 8.5 mg/dL 8.5-10.1 bilirubin, serum, total 0.20 mg/dL 0.00-1.00 sodium, serum 139 mmol/L 214-486 1894/12/22 carbon dioxide, venous blood 26.8 mmol/L 21.0-32.0 [...] Rate - Chemistry sodium, serum 139 mmol/L 461-139 5987/12/11 carbon dioxide, venous blood 25.4 mmol/L 21.0-32.0 [...] Panel - Chemistry sodium, serum 139 mmol/L 977-412 5947/12/31 potassium, serum 4.8 mmol/L 3.5-5.2 chloride, serum 106 mmol/L 98-107 carbon dioxide, venous blood 24.3 mmol/L 21.0-32.0 blood glucose 90 mg/dL 65-110 urea nitrogen, blood 16 mg/dL 7-18 creatinine, serum 1.00 mg/dL 0.60-1.30 alanine aminotransferase (SGPT), serum 41 U/L 12-78 aspartate aminotransferase (SGOT), serum 17 U/L 15-37 calcium, serum 8.6 mg/dL 8.5-10.1 bilirubin, serum, total 0.30 mg/dL 0.00-1.00 cholesterol, serum 108 mg/dL 231-632 9004/12/31 triglyceride, serum, fasting 120 mg/dL 30-200 HDL [...] 5.0-8.5 Lab Report: UADIP W/MICRO, AUTO, [facility] [place] - Chemistry RBC, urine, dipstick Negative Negative protein, total urine random Negative mg/dL Negative human chorionic gonadotropin, urine, qualitative (urine test) Negative Negative Lab Report: UADIP W/MICRO, AUTO, [facility] - Urinalysis glucose, urine, semiquantitative Negative Negative ketones, urine, by test strip Negative Negative bilirubin, urine Negative Negative urine color Yellow Colorless;Lightyellow;Straw;Yellow appearance, urine Clear Clear specific gravity, urine 1.025 1.000-1.030 pH, urine, semiquantitative 7.0 5.0-8.5 urobilinogen, urine, semiquantitative (dipstick) 0.2 Normal leukocyte esterase, urine, by dipstick Negative Negative nitrite, urine, semiquantitative Negative Negative Lab Report: Varicella-Zoater Inga IgG,IgM/24150, HEP Be Antibody/556, RUB ... - Serology rubella antibody, serum, IgG 2.88 Encounters Code Encounter Date Provider Facility CPT-43827 Level 3 Est. Patient 11:37:33 [employer] Vishal Hui MD [facility] CPT-82257 Level 3 Est. Patient 08:41:09 [employer] SUPERVISOR Vishal Hui MD [facility] CPT-52365 Level 4 Est. Patient 10:19:35 [employer] SU[employer]VISOR Vishal Hui MD [facility] CPT-15624 Level 3 Est. Patient 13:35:45 CDT Vishal Hui MD [facility] CPT-38630 Level 4 Est. Patient 10:08:37 CDT Vishal Hui MD [facility] CPT-86420 Level 3 Est. Patient 11:22:10 CDT Vishal Hui MD [facility] CPT-31773 Level 3 Est. Patient 11:03:32 CDT Sahara Rodriguez MD [facility] CPT-72519 Level 3 Est. Patient 09:41:35 CDT Vishal Hui MD [facility]-11936 Level 3 Est. Patient 12:00:41 CDT Neeraj Collins MD [facility] CPT-07650 Level 3 Est. Patient 09:16:24 CDT Vishal Hui MD [facility] CPT-23168 Level 4 Est. Patient 13:59:09 CDT Neeraj Collins MD [facility] CPT-58762 Level 3 Est. Patient 15:19:43 CDT Renzo Thornton DO [facility] CPT-04619 Level 3 Est. Patient 18:10:26 CDT Sahara Rodriguez MD [facility]-61966 Level 3 Est. Patient 14:49:50 CDT Vishal Hui MD [facility] CPT-04661 Level 4 Est. Patient 18:41:46 CDT Neeraj Collins MD [facility]-15610 Level 4 Est. Patient 09:18:38 [employer] Vishal Hui MD [facility] CPT-23314 Level 3 Est. Patient 14:43:55 [employer] SU[employer]OR Vishal Hui MD [facility] CPT-72716 Level 3 Est. Patient 15:26:33 [employer] SUPER[employer]OR Sahara Rodriguez MD PhD [facility] CPT-08486 Level 3 Est. Patient 10:32:14 [employer] Vishal Hui MD [facility] CPT-71272 Level 3 Est. Patient 15:12:52 [employer] SU[employer]OR Vishal Hui MD [facility] CPT-68554 Level 4 Est. Patient 09:19:27 CDT Vishal Hui MD [facility] CPT-26393 Level 3 Est. Patient 15:53:00 CDT Renzo Thornton [facility] CPT-87074 Level 3 Est. Patient 15:50:30 CDT Renzo Thornton [facility] CPT-29449 Level 3 Est. Patient 16:55:24 CDT Vishal Hui MD [facility] Procedures Code Procedure Name Date Entry Date Standard Description CPT-52982 Recombivax HB Injection Suspension 5 MCG/0.5ML 08:37:50 [employer] CPT-76815 Immunization Single Admin 08:37:50 [employer] CPT-J3420 Vitamin B12 1000mcg (Cyanocobalamin) 08:32:16 [employer] 03/11 CPT-95539 Abx/Therapy Injection 08:32:16 [employer] CPT-78688 Chest 2V Frontal and Lat 11:46:38 [employer] CPT-05384 Venipuncture Draw Fee 09:12:45 [employer] CPT-J3420 Vitamin B12 1000mcg (Cyanocobalamin) 08:50:15 [employer] 02/08 CPT-36231 Abx/Therapy Injection 08:50:15 [employer] CPT-Cryo Cryotherapy 10:19:35 [employer] CPT-000 Give Appropriate Flu Vaccine 09:22:16 CDT CPT-J3420 Vitamin B12 1000mcg (Cyanocobalamin) 19:08:57 CDT 01/11 CPT-73288 Abx/Therapy Injection 19:08:57 CDT CPT-J3420 Vitamin B12 1000mcg (Cyanocobalamin) 08:19:08 CDT 12/11 CPT-67831 Abx/Therapy Injection 08:19:08 CDT CPT-J3420 Vitamin B12 1000mcg (Cyanocobalamin) 14:48:00 CDT 11/09 CPT-85915 Abx/Therapy Injection 14:47:59 CDT CPT-J3420 Vitamin B12 1000mcg (Cyanocobalamin) 08:34:04 CDT 10/09 CPT-91408 Abx/Therapy Injection 08:34:04 CDT CPT-J3420 Vitamin B12 1000mcg (Cyanocobalamin) 09:18:52 CDT 09/11 CPT-74659 Abx/Therapy Injection 09:18:52 CDT CPT-J3420 Vitamin B12 1000mcg (Cyanocobalamin) 08:35:44 CDT 09/04 CPT-93836 Abx/Therapy Injection 08:35:44 CDT CPT-20447 Immunization Single Admin 11:07:16 CDT CPT-30721 Hepatitis B adult IM 11:07:16 CDT CPT-J3420 Vitamin B12 1000mcg (Cyanocobalamin) 11:00:49 CDT 08/28 CPT-J1040 Depo Medrol 80 mg (Methyl Prednisolone Acetate) 11:00: 49 CDT CPT-75026 Abx/Therapy Injection 11:00:49 CDT CPT-J1040 Depo Medrol 80 mg (Methyl Prednisolone Acetate) 09:16: 23 CDT CPT-J3420 Vitamin B12 1000mcg (Cyanocobalamin) 08:27:05 CDT 08/20 CPT-59058 Abx/Therapy Injection 08:27:05 CDT CPT-49134 Recombivax HB Injection Suspension 5 MCG/0.5ML 10:00:41 CDT CPT-11025 Administration single or combination vaccine inc oral 10 :00:41 CDT CPT-68072 Sono transvag pelvis non OB uterus ovaries cervix 16:36: 57 CDT CPT-58288 LS spine comp w obliq 09:50:55 [employer] CPT-08575 Abd compl w upright 09:50:55 [employer] CPT-J1100 Decadron 4mg (Dexamethasone) 15:51:24 [employer] CPT-J1030 Depo Medrol 40 mg (Methyl Prednisolone Acetate) 15:51: 24 [employer] CPT-01159 Abx/Therapy Injection 15:51:24 [employer] CPT-J1100 Decadron 4mg (Dexamethasone) 15:26:33 [employer] CPT-J1030 Depo Medrol 40 mg (Methyl Prednisolone Acetate) 15:26: 33 [employer] CPT-12730 Sono retroperitoneal complete kidneys and bladder 17:15: 30 CDT CPT-18225 Abd compl w upright 16:09:25 CDT CPT-J1100 Decadron 8mg (Dexamethasone) 17:07:57 CDT CPT-57843 Abx/Therapy Injection 17:07:57 CDT CPT-J1100 Decadron 8mg (Dexamethasone) 16:55:24 CDT CPT-55073 Chest 2V Frontal and Lat 16:32:44 CDT
--- OUTSIDE RECORDS SUMMARY | 2016-11-04 16:35 | XMS REPORT | Clinical Summary ---
Author Author Admin, Dereck Organization [facility] [email or web address] Address Unknown Phone Unavailable Allergies, Adverse Reactions, [...] Smoker/tobacco use disorder-smoking cessation discussed 305.1 Resolved iVshal Hui MD Tobacco use disorder Abdominal pain [...] sites Morbid obesity 278.01 Active Juliet Kimbrough [employer] Morbid obesity 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 Active Juliet Kimbrough [employer] Dependence on other enabling machines and devices [...] Shortness of breath 786.05 Active Fabiola Johnson [employer] Shortness of breath Nocturnal hypoxia 799.02 Active Fabiola Johnson [employer] Hypoxemia Neck pain 723.1 Active Jilljanee Martínez [employer] Cervicalgia Vaginal discharge 623.5 Active Neeraj Collins [...] Encounter for removal of sutures ICD-V58.32 Jim uHi MD Hot flashes ICD-627.2 Jim Hui MD [...] TAB 1 tablet by mouth bid METRONIDAZOLE 89446725910 Active Olimpia Raida Active FLUTICASONE PROPIONATE 50 MCG/ACT SUSP 2 sprays each nostril daily before bed. FLUTICASONE PROPIONATE 85745330912 Active Fabiola Johnson APRN Active VERAPAMIL HCL ER 120 MG ORAL CR-TABS 1 tab po daily for blood pressure 09/27 VERAPAMIL HCL 70539149810 Active Fabiola Johnson APRN Active ADZENYS XR-ODT 6.3 MG ORAL TBED 1 tab po daily for ADHD AMPHETAMINE 65008245342 Active Fabiola Johnson APRN Active BENADRYL 25 MG CAP 4 po at bedtime for insomnia DIPHENHYDRAMINE HCL 75628406686 Active Fabiola Johnson APRN Active KLONOPIN 1 MG ORAL TABS 1 tab po TID CLONAZEPAM 51373220838 Active Fabiola Johnson APRN Active VALIUM 5 MG TAB Take 1-2 tablets daily DIAZEPAM 88173208607 No Longer Active Fabiola Johnson APRN Active METOPROLOL TARTRATE 25 MG ORAL TABS 1/2 tablet twice daily for heart rate and blood pressure METOPROLOL TARTRATE 70722245574 No Longer Active Fabiola Johnson APRN Active MIRALAX ORAL POWD 17GMS DAILY IN WATER POLYETHYLENE GLYCOL 3350 33825913732 Active Vishal Hui MD Active VIIBRYD 10 MG ORAL TABS Take 1 tablet once a day VILAZODONE HCL 31176997152 Active Ahmet Carbajal MD Active DICLOFENAC POTASSIUM TABS Take 1 tablet twice a day (pt. is not sure of the dose.) DICLOFENAC POTASSIUM TABS 14156211096 Active Ahmet Carbajal MD Active MIRALAX PACK 1 po qd PRN Constipation POLYETHYLENE GLYCOL 3350 70582016114 No Longer Active Ahmet Carbajal MD Active MINIPRESS 2 MG CAPS 4 cap po at night PRAZOSIN HCL 05643320744 No Longer Active Ahmet Carbajal MD Active PIROXICAM 20 MG CAPS 1 cap po qd PRN Pain PIROXICAM 61722474236 No Longer Active Ahmet Carbajal MD Active TRAMADOL HCL 50 MG TABS 1-2 po TID PRN Pain TRAMADOL HCL 57415145152 No Longer Active Ahmet Carbajal MD Active METOPROLOL TARTRATE 50 MG TAB 1 po bid METOPROLOL TARTRATE 37962668244 No Longer Active Ahmet Carbajal MD Active ABILIFY 15 MG ORAL TABS 1 tab daily ARIPIPRAZOLE 32416763952 No Longer Active Ahmet Carbajal MD Active PROZAC 20 MG ORAL CAPS 1 tab daily FLUOXETINE HCL 84884777614 No Longer Active Ahmet Carbajal MD Active AMBIEN 5 MG ORAL TABS 1 tab at bedtime ZOLPIDEM TARTRATE 25585593234 No Longer Active Ahmet Carbajal MD Active PREDNISONE 20 MG TAB 2 tabs daily for 4 days, 1 tab daily for 4 days, 1/2 tab daily for 4 days PREDNISONE 85528297164 No Longer Active Ahmet Carbajal MD Active KEFLEX 500 MG CAP 1 po TID x 10 days CEPHALEXIN 41274477541 No Longer Active Vishal Hui MD Active ABILIFY MAINTENA 400 MG IM SUSR Injection once per month ARIPIPRAZOLE 68207050411 Active Juliet Kimbrough APRN Active IMITREX 50 MG ORAL TABS 1/2 tab every 6 hours prn SUMATRIPTAN SUCCINATE 89561012423 Active Luigi Martínez APRN Active TOPAMAX 50 MG ORAL TABS 1 tab twice daily TOPIRAMATE 03264936793 Active Vishal Hui MD Active SAPHRIS 5 MG SUBL 1 po bid ASENAPINE MALEATE 89227206024 No Longer Active Luigi Martínez APRN Active LATUDA 80 MG TABS Take one by mouth daily LURASIDONE HCL 13843239108 No Longer Active Luigi Martínez APRN Active AMLODIPINE BESYLATE 5 MG TABS 1 tablet by mouth daily AMLODIPINE BESYLATE 10054178967 No Longer Active Luigi Martínez APRN Active AMITRIPTYLINE HCL 100 MG TAB one at hs AMITRIPTYLINE HCL 73948313732 No Longer Active Vishal Hui MD Active TRAZODONE HCL 100 MG TAB take 1 at bedtime TRAZODONE HCL 27579311467 No Longer Active Vishal Hui MD Active VYVANSE 40 MG CAPS 1 daily, LISDEXAMFETAMINE DIMESYLATE 51430891278 No Longer Active Vishal Hui MD Active IBUPROFEN 600 MG TAB 1 po TID PRN IBUPROFEN 51709488468 No Longer Active Vishal Hui MD Active PROZAC 20 MG CAP Take one by mouth daily FLUOXETINE HCL 97779454545 No Longer Active Vishal Hui MD Active ZOFRAN 4 MG TABS 1 po q6hr PRN Nausea ONDANSETRON HCL Active Vishal Hui MD Active BACTRIM DS 800-160 MG TABS 1 pill by mouth twice daily SULFAMETHOXAZOLE-TRIMETHOPRIM 22086534009 No Longer Active Sahara Rodriguez MD PhD Active DIFLUCAN 150 MG TAB 1 tablet by mouth daily FLUCONAZOLE 54083659251 No Longer Active Vishal Hui MD Active TIZANIDINE HCL 4 MG TABS 1 po q6hr PRN Muscle Spasm/Back Pain TIZANIDINE HCL 78834347302 Active Vishal Hui MD Active CLINDAMYCIN HCL 150 MG CAPS 1 four times a day CLINDAMYCIN HCL 42226602921 No Longer Active Neeraj Collins MD Active KEFLEX 500 MG ORAL CAPS 1 cap QID by mouth CEPHALEXIN 82286576948 No Longer Active Neeraj Collins MD Active DIFLUCAN 150 MG TABS 1 pill every other day x 2 doses FLUCONAZOLE 06881928541 No Longer Active Sahara Rodriguez MD PhD Active MELATONIN 3 MG CAPS 2 po q hs MELATONIN 88144472497 No Longer Active Sahara Rodriguez MD PhD Active MULTIVITAMINS CAPS Take one by mouth daily MULTIPLE VITAMIN 26553160853 No Longer Active Sahara Rodriguez MD PhD Active BACTRIM DS 800-160 MG TAB 1 tab by mouth twice daily TRIMETHOPRIM-SULFAMETHOXAZOLE 18435067167 No Longer Active Sahara Rodriguez MD PhD Active [facility] PROBIOTIC ORAL CHEW 2 daily po PROBIOTIC PRODUCT 48774771162 No Longer Active Sahara Rodriguez MD PhD Active BACTRIM DS 800-160 MG TABS 1 po BID x 7 days SULFAMETHOXAZOLE-TRIMETHOPRIM 50528446159 No Longer Active Vishal Hui MD Active CHANTIX STARTING MONTH EARNEST 0.5 MG X 11 & 1 MG X 42 TABS 0.5mg daily for 3 days , then 0.5mg BID for 4 days, then 1mg BID VARENICLINE TARTRATE 93431474565 No Longer Active TAMARA Gray Active VERAPAMIL HCL CR 120 MG TAB CR 1 po bid VERAPAMIL HCL 39795158044 No Longer Active Vishal Hui MD Active METOPROLOL SUCCINATE 50 MG TB24 1 tablet by mouth daily METOPROLOL SUCCINATE 89924038992 No Longer Active Vishal Hui MD Active SAPHRIS 10 MG SUBL 1 tab po bid ASENAPINE MALEATE 95141792214 No Longer Active Vishal Hui MD Active LISINOPRIL 20 MG TABS 1 tab po qd LISINOPRIL 84573021566 No Longer Active Vishal Hui MD Active LATUDA 20 MG TABS Take one by mouth daily LURASIDONE HCL 96981716355 No Longer Active Vishal Hui MD Active TRAZODONE HCL 50 MG TABS 1/2 tab po qd prn for anxiety TRAZODONE HCL 82720235833 No Longer Active Vishal Hui MD Active OMEPRAZOLE 20 MG TBEC 1 po q a.m. 30min prior to first food intake OMEPRAZOLE 09512870267 Active Vishal Hui MD Active RANITIDINE HCL 150 MG CAPS 1 twice a day RANITIDINE HCL 40097934024 Active Jillina Messizelephraim WALTERSN Active LINZESS 290 MCG CAPS Take one by mouth daily LINACLOTIDE 37516259057 No Longer Active Vishal Hui MD Active SAPHRIS 5 MG SUBL 1 tab po qd ASENAPINE MALEATE 10678665787 No Longer Active Vishal Hui MD Active ZALEPLON 10 MG CAPS 1 cap po every other night ZALEPLON 23256642249 No Longer Active Vishal Hui MD Active LYRICA 50 MG CAPS 1 tab po TID PREGABALIN 01988882925 No Longer Active Vishal Hui MD Active LORATADINE 10 MG TABS 1 tab po qd LORATADINE 47433962977 No Longer Active Vishal Hui MD Active VERAPAMIL HCL ER 180 MG CR-TABS 1 tab po bid VERAPAMIL HCL 39368528041 No Longer Active Vishal Hui MD Active MIRALAX POWD 1 capfull once daily POLYETHYLENE GLYCOL 3350 67742033567 No Longer Active Vishal Hui MD Active PREDNISONE 20 MG TABS 1 tab po qd PREDNISONE 62293314676 No Longer Active Renzo Thornton DO Active LEVOFLOXACIN 500 MG TABS 1 tab po qd LEVOFLOXACIN 00103112246 No Longer Active Renzo Thornton DO Active BUSPIRONE HCL 15 MG TABS 1 tab po TID BUSPIRONE HCL 91340693046 No Longer Active Renzo Thornton DO Active BENZTROPINE MESYLATE 1 MG TABS 1 tab po qd BENZTROPINE MESYLATE 09639431923 No Longer Active Renzo Thornton DO Active ATENOLOL 25 MG TABS 1 tab po qd ATENOLOL 90786615652 No Longer Active Renzo Thornton DO Active ESCITALOPRAM OXALATE 20 MG TABS 1 tab po qd ESCITALOPRAM OXALATE 89637294703 No Longer Active Renzo Thornton DO Active ADVAIR DISKUS 250-50 MCG/DOSE AEPB 1 puff BID FLUTICASONE-SALMETEROL 76023617080 No Longer Active Renzo Thornton DO Active PREDNISONE 20 MG TAB 2 tabs daily for 3 days, 1 tab daily for 3 days, 1/2 tab daily for 2 days PREDNISONE 66975576283 No Longer Active Vishal Hui MD Active CEFDINIR 300 MG CAPS by mouth twice a day CEFDINIR 85444485102 No Longer Active Vishal Hui MD Active LANSOPRAZOLE 30 MG CPDR 1 cap po qd LANSOPRAZOLE 09422972834 No Longer Active Vishal Hui MD Active BACLOFEN 20 MG TABS 1 tab po tid BACLOFEN 35356003838 No Longer Active Vishal Hui MD Active ADVAIR DISKUS 250-50 MCG/DOSE AEPB 1 puff BID ADVAIR DISKUS 250-50 MCG/DOSE AEPB FLUTICASONE-SALMETEROL Inactive ESCITALOPRAM OXALATE 20 MG TABS 1 tab po qd ESCITALOPRAM OXALATE 20 MG TABS 209272 ESCITALOPRAM OXALATE Inactive ATENOLOL 25 MG TABS 1 tab po qd ATENOLOL 25 MG TABS 701907 ATENOLOL Inactive BENZTROPINE MESYLATE 1 MG TABS 1 tab po qd BENZTROPINE MESYLATE 1 MG TABS 773742 BENZTROPINE MESYLATE Inactive BUSPIRONE HCL 15 MG TABS 1 tab po TID BUSPIRONE HCL 15 MG TABS 221105 BUSPIRONE HCL Inactive LEVOFLOXACIN 500 MG TABS 1 tab po qd LEVOFLOXACIN 500 MG TABS 591578 LEVOFLOXACIN Inactive PREDNISONE 20 MG TABS 1 tab po qd PREDNISONE 20 MG TABS 455750 PREDNISONE Inactive MIRALAX POWD 1 capfull once daily MIRALAX POWD 662999 POLYETHYLENE GLYCOL 3350 Inactive VERAPAMIL HCL ER 180 MG CR-TABS 1 tab po bid VERAPAMIL HCL ER 180 MG CR-TABS VERAPAMIL HCL Inactive LORATADINE 10 MG TABS 1 tab po qd LORATADINE 10 MG TABS 582817 LORATADINE Inactive LYRICA 50 MG CAPS 1 tab po TID LYRICA 50 MG CAPS PREGABALIN Inactive ZALEPLON 10 MG CAPS 1 cap po every other night ZALEPLON 10 MG CAPS 801028 ZALEPLON Inactive SAPHRIS 5 MG SUBL 1 tab po qd SAPHRIS 5 MG SUBL ASENAPINE MALEATE Inactive TRAZODONE HCL 50 MG TABS 1/2 tab po qd prn for anxiety TRAZODONE HCL 50 MG TABS 892489 TRAZODONE HCL Inactive LATUDA 20 MG TABS Take one by mouth daily LATUDA 20 MG TABS LURASIDONE HCL Inactive LISINOPRIL 20 MG TABS 1 tab po qd LISINOPRIL 20 MG TABS 828804 LISINOPRIL Inactive SAPHRIS 10 MG SUBL 1 [...] twice daily BACTRIM DS 800-160 MG TAB 771936 TRIMETHOPRIM-SULFAMETHOXAZOLE Inactive MULTIVITAMINS CAPS Take one by mouth daily MULTIVITAMINS CAPS MULTIPLE VITAMIN Inactive MELATONIN 3 MG CAPS 2 po q hs MELATONIN 3 MG CAPS 248154 MELATONIN Inactive KEFLEX 500 MG ORAL CAPS 1 cap QID by mouth KEFLEX 500 MG ORAL CAPS 009357 CEPHALEXIN Inactive CLINDAMYCIN HCL 150 MG CAPS 1 four times a day CLINDAMYCIN HCL 150 MG CAPS 945441 CLINDAMYCIN HCL Inactive DIFLUCAN 150 MG TAB 1 tablet by mouth daily DIFLUCAN 150 MG TAB 183350 FLUCONAZOLE Inactive PROZAC 20 MG CAP Take one by mouth daily PROZAC 20 MG CAP 767258 FLUOXETINE HCL Inactive IBUPROFEN 600 MG TAB 1 po TID PRN IBUPROFEN 600 MG TAB 729225 IBUPROFEN Inactive VYVANSE 40 MG CAPS 1 daily, VYVANSE 40 MG CAPS LISDEXAMFETAMINE DIMESYLATE Inactive TRAZODONE HCL 100 MG TAB take 1 at bedtime TRAZODONE HCL 100 MG TAB 113884 TRAZODONE HCL Inactive AMITRIPTYLINE HCL 100 MG TAB one at hs AMITRIPTYLINE HCL 100 MG TAB 307623 AMITRIPTYLINE HCL Inactive AMLODIPINE BESYLATE 5 MG TABS 1 tablet by mouth daily AMLODIPINE BESYLATE 5 MG TABS 316412 AMLODIPINE BESYLATE Inactive LATUDA 80 MG TABS Take one by mouth daily LATUDA 80 MG TABS LURASIDONE HCL Inactive SAPHRIS 5 MG SUBL 1 po bid SAPHRIS 5 MG SUBL ASENAPINE MALEATE Inactive PREDNISONE 20 MG TAB 2 tabs daily for 4 days, 1 tab daily for 4 days, 1/2 tab daily for 4 days PREDNISONE 20 MG TAB 279922 PREDNISONE Inactive AMBIEN 5 MG ORAL TABS 1 tab at bedtime AMBIEN 5 MG ORAL TABS 470981 ZOLPIDEM TARTRATE Inactive PROZAC 20 MG ORAL CAPS 1 tab daily PROZAC 20 MG ORAL CAPS 728998 FLUOXETINE HCL Inactive ABILIFY 15 MG ORAL TABS 1 tab daily ABILIFY 15 MG ORAL TABS 892688 ARIPIPRAZOLE Inactive METOPROLOL TARTRATE 50 MG TAB 1 po bid METOPROLOL TARTRATE 50 MG TAB 803434 METOPROLOL TARTRATE Inactive TRAMADOL HCL 50 MG TABS 1-2 po TID PRN Pain TRAMADOL HCL 50 MG TABS 449392 TRAMADOL HCL Inactive PIROXICAM 20 MG CAPS 1 cap po qd PRN Pain PIROXICAM 20 MG CAPS 810014 PIROXICAM Inactive MINIPRESS 2 MG CAPS 4 cap po at night MINIPRESS 2 MG CAPS 964761 PRAZOSIN HCL Inactive MIRALAX PACK 1 po qd PRN Constipation MIRALAX PACK 155403 POLYETHYLENE GLYCOL 3350 Inactive METOPROLOL TARTRATE 25 MG ORAL TABS 1/2 tablet twice daily for heart rate and blood pressure METOPROLOL TARTRATE 25 MG ORAL TABS 580453 METOPROLOL TARTRATE Inactive VALIUM 5 MG TAB Take 1-2 tablets daily VALIUM 5 MG TAB 497261 DIAZEPAM Inactive CEFDINIR 300 MG CAPS by mouth twice a day CEFDINIR 300 MG CAPS 20020622 CEFDINIR Inactive PREDNISONE 20 MG TAB 2 tabs daily for 3 days, 1 tab daily for 3 days, 1/2 tab daily for 2 days PREDNISONE 20 MG TAB 583588 PREDNISONE Inactive BACTRIM DS 800-160 MG TABS 1 po BID x 7 days BACTRIM DS 800-160 MG TABS 19820521 SULFAMETHOXAZOLE-TRIMETHOPRIM Inactive DIFLUCAN 150 MG TABS 1 pill every other day x 2 doses DIFLUCAN 150 MG TABS 874721 FLUCONAZOLE Inactive BACTRIM DS 800-160 MG TABS 1 pill by mouth twice daily BACTRIM DS 800-160 MG TABS 19820521 SULFAMETHOXAZOLE-TRIMETHOPRIM Inactive KEFLEX 500 MG CAP 1 po TID x 10 days KEFLEX 500 MG CAP 577582 CEPHALEXIN Inactive Advance Directives Directive Description Start [...] % 11.6-14.8 platelet count 394 10^3/MM^3 10*3/mm3 251-686 8866/01/11 leukocyte count, blood 13.8 10^3/MM^3 10*3/mm3 4.6-10.2 [...] Panel - Chemistry sodium, serum 139 mmol/L 634-088 2102/12/03 carbon dioxide, venous blood 28.5 mmol/L 21.0-32.0 [...] 5.5 % 4.3-6.0 cholesterol, serum 159 mg/dL 501-279 2649/12/03 triglyceride, serum, fasting 118 mg/dL 30-200 HDL [...] Panel - Chemistry sodium, serum 139 mmol/L 992-502 7361/12/22 carbon dioxide, venous blood 26.8 mmol/L 21.0-32.0 potassium, serum 4.2 mmol/L 3.5-5.2 chloride, serum 103 mmol/L 98-107 blood glucose 115 mg/dL 65-110 urea nitrogen, blood 20 mg/dL 7-18 creatinine, serum 0.90 mg/dL 0.55-1.30 alanine aminotransferase (SGPT), serum 38 U/L aspartate aminotransferase (SGOT), serum 19 U/L 15-37 calcium, serum 8.6 mg/dL 8.5-10.1 bilirubin, serum, total 0.30 mg/dL 0.00-1.00 sodium, serum 139 mmol/L 893-113 4513/01/11 carbon dioxide, venous blood 26.6 mmol/L 21.0-32.0 potassium, serum 4.1 mmol/L 3.5-5.2 chloride, serum 100 mmol/L 98-107 blood glucose 86 mg/dL 65-110 urea nitrogen, blood 16 mg/dL 7-18 creatinine, serum 1.00 mg/dL 0.55-1.30 alanine aminotransferase (SGPT), serum 48 U/L -78 aspartate aminotransferase (SGOT), serum 17 U/L 15-37 calcium, serum 9.1 mg/dL 8.5-10.1 bilirubin, serum, total 0.40 mg/dL 0.00-1.00 sodium, serum 142 mmol/L 060-759 0532/06/08 carbon dioxide, venous blood 27.6 mmol/L 21.0-32.0 potassium, serum 4.0 mmol/L 3.5-5.2 chloride, serum 105 mmol/L 98-107 blood glucose 95 mg/dL 65-110 urea nitrogen, blood 8 mg/dL 7-18 creatinine, serum 0.75 mg/dL 0.55-1.30 alanine aminotransferase (SGPT), serum 49 U/L -78 aspartate aminotransferase (SGOT), serum 28 U/L 15-37 calcium, serum 9.4 mg/dL 8.5-10.1 bilirubin, serum, total 0.30 mg/dL 0.00-1.00 sodium, serum 140 mmol/L 156-374 5600/08/08 carbon dioxide, venous blood 33.7 mmol/L 21.0-32.0 [...] Rate - Chemistry sodium, serum 139 mmol/L 264-507 3385/12/11 carbon dioxide, venous blood 25.4 mmol/L 21.0-32.0 [...] mg/dL Encounters Code Encounter Date Provider Facility CPT-14279 Level 3 Est. Patient 14:27:52 CDT Neeraj Collins MD [facility] CPT-11030 Level 3 Est. Patient 08:56:03 CDT Luigi Martínez [facility] CPT-58643 Level 4 Est. Patient 12:11:48 CDT Fabiola Johnson [facility] CPT-25492 Level 3 New Patient 16:53:37 CDT Albert Caldera MD [facility] CPT-03421 Level 3 Est. Patient 11:25:49 CDT Renzo Thornton DO [facility] CPT-97953 Level 3 Est. Patient 15:22:01 CDT Ahmet Carbajal MD [facility] CPT-18380 Level 4 Est. Patient 09:00:51 [employer] Vishal Hui MD [facility] CPT-80024 Level 3 Est. Patient 11:37:33 [employer] Vishal Hui MD [facility] CPT-16123 Level 3 Est. Patient 08:41:09 [employer] Vishal Hui MD [facility] CPT-71288 Level 4 Est. Patient 10:19:35 [employer] Vishal Hui MD [facility] CPT-74041 Level 3 Est. Patient 13:35:45 CDT Vishal Hui MD [facility] CPT-98132 Level 4 Est. Patient 10:08:37 CDT Vishal Hui MD [facility] CPT-37988 Level 3 Est. Patient 11:22:10 CDT Vishal Hui MD [facility] CPT-46157 Level 3 Est. Patient 11:03:32 CDT Sahara Rodriguez MD PhD [facility]-52466 Level 3 Est. Patient 09:41:35 CDT Vishal Hui MD [facility] CPT-29394 Level 3 Est. Patient 12:00:41 CDT Neeraj Collins MD [facility] CPT-26778 Level 3 Est. Patient 09:16:24 CDT Vishal Hui MD [facility] CPT-36660 Level 4 Est. Patient 13:59:09 CDT Neeraj Collins MD [facility] CPT-70754 Level 3 Est. Patient 15:19:43 CDT Renzo Thornton DO [facility] CPT-47594 Level 3 Est. Patient 18:10:26 CDT Sahara Rodriguez MD [facility]-01943 Level 3 Est. Patient 14:49:50 CDT Vishal Hui MD [facility] CPT-96802 Level 4 Est. Patient 18:41:46 CDT Neeraj Collins MD [facility] CPT-10876 Level 4 Est. Patient 09:18:38 [employer] Vishal Hui MD [facility]-50484 Level 3 Est. Patient 14:43:55 [employer] Vishal Hui MD [facility] CPT-63800 Level 3 Est. Patient 15:26:33 [employer] Sahara Rodriguez MD PhD [facility] CPT-06123 Level 3 Est. Patient 10:32:14 [employer] Vishal Hui MD [facility] CPT-86380 Level 3 Est. Patient 15:12:52 [employer] MECH[employer]IC Vishal Hui MD [facility] [place][note 2]-20595 Level 4 Est. Patient 09:19:27 CDT Vishal Hui MD [facility] CPT-38238 Level 3 Est. Patient 15:53:00 CDT Renzo W Norberto [facility] CPT-26891 Level 3 Est. Patient 15:50:30 CDT Renzo Thornton [facility] CPT-02429 Level 3 Est. Patient 16:55:24 CDT Vishal Hui MD [facility] Procedures Code Procedure Name Date Entry Date Standard Description CPT-44743 Wet Mount - LAB USE ONLY 17:44:58 CDT CPT-39580 UA w micro - LAB USE ONLY 17:44:58 CDT CPT-82148 CMP - LAB USE ONLY 17:44:58 CDT CPT-84422 Venipuncture Draw Fee 17:44:58 CDT CPT-75790 Cervical Min 4V - XRAY USE ONLY 09:01:40 CDT CPT-70402 Chest 2V Frontal and Lat - XRAY USE ONLY 11:06:31 CDT CPT-38703 EKG Trac and Interp - XRAY USE ONLY 11:31:43 CDT 08/26 CPT-J3420 Vitamin B12 1000mcg (Cyanocobalamin) 08:10:26 [employer] 04/12 CPT-07364 Abx/Therapy Injection 08:10:26 [employer]NEY [employer]CH[employer] CPT-G0438 Initial Annual Wellness Exam 19:01:01 [employer]NEY [employer]CH[employer] CPT-J3420 Vitamin B12 1000mcg (Cyanocobalamin) 16:57:46 CDT 08/14 CPT-55304 Recombivax HB Injection Suspension 5 MCG/0.5ML 08:37:50 [employer]NEY [employer]CH[employer] CPT-48851 Immunization Single Admin 08:37:50 [employer]IMNEY MECH[employer] CPT-J3420 Vitamin B12 1000mcg (Cyanocobalamin) 08:32:16 [employer]NEY MECH[employer]IC 03/11 CPT-71019 Abx/Therapy Injection 08:32:16 [employer]IMNEY MECH[employer]IC CPT-36809 Chest 2V Frontal and Lat 11:46:38 [employer]IMNEY MECH[employer]IC CPT-13508 Venipuncture Draw Fee 09:12:45 [employer]IMNEY MECH[employer]IC CPT-J3420 Vitamin B12 1000mcg (Cyanocobalamin) 08:50:15 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 CPT-69062 Abx/Therapy Injection 08:50:15 [employer]IMNEY MECH[employer] CPT-Cryo Cryotherapy 10:19:35 [employer]IMNEY MECH[employer]IC CPT-000 Give Appropriate Flu Vaccine 09:22:16 CDT CPT-J3420 Vitamin B12 1000mcg (Cyanocobalamin) 19:08:57 CDT 01/11 CPT-25115 Abx/Therapy Injection 19:08:57 CDT CPT-J3420 Vitamin B12 1000mcg (Cyanocobalamin) 08:19:08 CDT 12/11 CPT-68479 Abx/Therapy Injection 08:19:08 CDT CPT-J3420 Vitamin B12 1000mcg (Cyanocobalamin) 14:48:00 CDT 11/09 CPT-73794 Abx/Therapy Injection 14:47:59 CDT CPT-J3420 Vitamin B12 1000mcg (Cyanocobalamin) 08:34:04 CDT 10/09 CPT-56726 Abx/Therapy Injection 08:34:04 CDT CPT-J3420 Vitamin B12 1000mcg (Cyanocobalamin) 09:18:52 CDT 09/11 CPT-93937 Abx/Therapy Injection 09:18:52 CDT CPT-J3420 Vitamin B12 1000mcg (Cyanocobalamin) 08:35:44 CDT 09/04 CPT-09015 Abx/Therapy Injection 08:35:44 CDT CPT-39271 Immunization Single Admin 11:07:16 CDT CPT-62898 Hepatitis B adult IM 11:07:16 CDT CPT-J3420 Vitamin B12 1000mcg (Cyanocobalamin) 11:00:49 CDT 08/28 CPT-J1040 Depo Medrol 80 mg (Methyl Prednisolone Acetate) 11:00: 49 CDT CPT-23938 Abx/Therapy Injection 11:00:49 CDT CPT-J1040 Depo Medrol 80 mg (Methyl Prednisolone Acetate) 09:16: 23 CDT CPT-J3420 Vitamin B12 1000mcg (Cyanocobalamin) 08:27:05 CDT 08/20 CPT-55109 Abx/Therapy Injection 08:27:05 CDT CPT-55544 Recombivax HB Injection Suspension 5 MCG/0.5ML 10:00:41 CDT CPT-02664 Administration single or combination vaccine inc oral 10 :00:41 CDT CPT-18518 Sono transvag pelvis non OB uterus ovaries cervix 16:36: 57 CDT CPT-68561 LS spine comp w obliq 09:50:55 [employer] CPT-35054 Abd compl w upright 09:50:55 [employer]IMNEY MECH[employer] CPT-J1100 Decadron 4mg (Dexamethasone) 15:51:24 [employer]NEY MECH[employer] CPT-J1030 Depo Medrol 40 mg (Methyl Prednisolone Acetate) 15:51: 24 [employer]NEY MECH[employer] CPT-86746 Abx/Therapy Injection 15:51:24 CHIMNEY MECHANIC CPT-J1100 Decadron 4mg (Dexamethasone) 15:26:33 [employer]IMNEY MECHANIC CPT-J1030 Depo Medrol 40 mg (Methyl Prednisolone Acetate) 15:26: 33 [employer]IMNEY MECH[employer]IC CPT-25995 Sono retroperitoneal complete kidneys and bladder 17:15: 30 CDT CPT-98046 Abd compl w upright 16:09:25 CDT CPT-J1100 Decadron 8mg (Dexamethasone) 17:07:57 CDT CPT-26917 Abx/Therapy Injection 17:07:57 CDT CPT-J1100 Decadron 8mg (Dexamethasone) 16:55:24 CDT CPT-74492 Chest 2V Frontal and Lat 16:32:44 CDT
--- OUTSIDE RECORDS SUMMARY | 2016-11-04 16:36 | XMS REPORT | Clinical Summary ---
Author Author Admin, E Organization [employer] Address Unknown Phone Unavailable Allergies, Adverse Reactions, Alerts Allergy Name Reaction Description Start Date Severity Status Provider FANAPT heart palpitations Critical Active iVshal Hui MD SEROQUEL Critical Active Vishal Hui [...] Instructions Start Date Stop Date Generic Name [facility] Status Provider Patient Instruction CLINDAMYCIN HCL 150 MG CAPS 1 four times a day CLINDAMYCIN HCL 87766266759 No Longer Active Neeraj Collins MD Active KEFLEX 500 MG ORAL CAPS 1 cap QID by mouth CEPHALEXIN 54765086069 No Longer Active Neeraj Collins MD Active DIFLUCAN 150 MG TABS 1 pill every other day x 2 doses FLUCONAZOLE 27833648276 No Longer Active Sahara Rodriguez MD PhD Active MELATONIN 3 MG CAPS 2 po q hs MELATONIN 63098102386 No Longer Active Sahara Rodriguez MD PhD Active MULTIVITAMINS CAPS Take one by mouth daily MULTIPLE VITAMIN 84308789020 No Longer Active Sahara Rodriguez MD PhD Active BACTRIM DS 800-160 MG TAB 1 tab by mouth twice daily TRIMETHOPRIM-SULFAMETHOXAZOLE 13926168717 No Longer Active Sahara Rodriguez MD PhD Active [facility] PROBIOTIC ORAL CHEW 2 daily po PROBIOTIC PRODUCT 68907183778 No Longer Active Sahara Rodriguez MD PhD Active IBUPROFEN 600 MG TAB 1 po TID PRN IBUPROFEN 41868353273 Active [employer] Active BACTRIM DS 800-160 MG TABS 1 po BID x 7 days SULFAMETHOXAZOLE-TRIMETHOPRIM 99329393070 No Longer Active Vishal Hui MD Active CHANTIX STARTING MONTH EARNEST 0.5 MG X 11 & 1 MG X 42 TABS 0.5mg daily for 3 days , then 0.5mg BID for 4 days, then 1mg BID VARENICLINE TARTRATE 62007571148 No Longer Active TAMARA Gray Active METOPROLOL TARTRATE 50 MG TAB 1 po bid METOPROLOL TARTRATE 78058616713 Active Vishal Hui MD Active TRAZODONE HCL 100 MG TAB take 1 at bedtime TRAZODONE HCL 91881640832 Active Vishal Hui MD Active AMLODIPINE BESYLATE 5 MG TABS 1 tablet by mouth daily AMLODIPINE BESYLATE 37253382913 Active Vishal Hui MD Active VERAPAMIL HCL CR 120 MG TAB CR 1 po bid VERAPAMIL HCL 78740920139 No Longer Active Vishal Hui MD Active METOPROLOL SUCCINATE 50 MG TB24 1 tablet by mouth daily METOPROLOL SUCCINATE 47306650530 No Longer Active Vishal Hui MD Active TRAMADOL HCL 50 MG TABS 1-2 po TID PRN Pain TRAMADOL HCL 73025971696 Active Vishal uHi MD Active SAPHRIS 5 MG SUBL 1 po bid ASENAPINE MALEATE 45238543147 Active Vishal Hui MD Active SAPHRIS 10 MG SUBL 1 tab po bid ASENAPINE MALEATE 30090315414 No Longer Active Vishal Hui MD Active LISINOPRIL 20 MG TABS 1 tab po qd LISINOPRIL 91206915677 No Longer Active Vishal Hui MD Active BENADRYL 25 MG CAP 2 po tid prn anxiety DIPHENHYDRAMINE HCL 41511424828 Active Vishal Hui MD Active LATUDA 80 MG TABS Take one by mouth daily LURASIDONE HCL 38500026145 Active Vishal Hui MD Active LATUDA 20 MG TABS Take one by mouth daily LURASIDONE HCL 97240222392 No Longer Active Vishal Hui MD Active TRAZODONE HCL 50 MG TABS 1/2 tab po qd prn for anxiety TRAZODONE HCL 88111875467 No Longer Active Vishal Hui MD Active PIROXICAM 20 MG CAPS 1 cap po qd PRN Pain PIROXICAM 70057809827 Active Vishal Hui MD Active OMEPRAZOLE 20 MG TBEC 1 po q a.m. 30min prior to first food intake OMEPRAZOLE 63790533359 Active Vishal Hui MD Active RANITIDINE HCL 150 MG CAPS 1 twice a day RANITIDINE HCL 35687213783 Active Vishal Hui MD Active PROZAC 20 MG CAP Take one by mouth daily FLUOXETINE HCL 48682879954 Active Vishal Hui MD Active LINZESS 290 MCG CAPS Take one by mouth daily LINACLOTIDE 03189806515 Active Vishal Hui MD Active SAPHRIS 5 MG SUBL 1 tab po qd ASENAPINE MALEATE 66656659974 No Longer Active Vishal Hui MD Active ZALEPLON 10 MG CAPS 1 cap po every other night ZALEPLON 34156891616 No Longer Active Vishal Hui MD Active LYRICA 50 MG CAPS 1 tab po TID PREGABALIN 39944709699 No Longer Active Vishal Hui MD Active LORATADINE 10 MG TABS 1 tab po qd LORATADINE 29272509845 No Longer Active Vishal Hui MD Active VERAPAMIL HCL ER 180 MG CR-TABS 1 tab po bid VERAPAMIL HCL 42393219981 No Longer Active Vishal Hui MD Active MIRALAX POWD 1 capfull once daily POLYETHYLENE GLYCOL 3350 85571864692 No Longer Active Vishal Hui MD Active PREDNISONE 20 MG TABS 1 tab po qd PREDNISONE 74670352758 No Longer Active Renzo Thornton DO Active LEVOFLOXACIN 500 MG TABS 1 tab po qd LEVOFLOXACIN 71883290365 No Longer Active Renzo Thornton DO Active BUSPIRONE HCL 15 MG TABS 1 tab po TID BUSPIRONE HCL 42936390936 No Longer Active Renzo Thornton DO Active BENZTROPINE MESYLATE 1 MG TABS 1 tab po qd BENZTROPINE MESYLATE 00448481640 No Longer Active Renzo Thornton DO Active ATENOLOL 25 MG TABS 1 tab po qd ATENOLOL 81268281419 No Longer Active Renzo Thornton DO Active ESCITALOPRAM OXALATE 20 MG TABS 1 tab po qd ESCITALOPRAM OXALATE 17387917697 No Longer Active Renzo Thornton DO Active ADVAIR DISKUS 250-50 MCG/DOSE AEPB 1 puff BID FLUTICASONE-SALMETEROL 28919312797 No Longer Active Renzo Thornton DO Active PREDNISONE 20 MG TAB 2 tabs daily for 3 days, 1 tab daily for 3 days, 1/2 tab daily for 2 days PREDNISONE 09312679968 No Longer Active Vishal Hui MD Active CEFDINIR 300 MG CAPS by mouth twice a day CEFDINIR 92395545582 No Longer Active Vishal Hui MD Active LANSOPRAZOLE 30 MG CPDR 1 cap po qd LANSOPRAZOLE 32504716091 No Longer Active Vishal Hui MD Active TOPAMAX 25 MG TABS 1 tab po bid TOPIRAMATE 33085527779 Active Vishal Hui MD Active MINIPRESS 2 MG CAPS 1 cap po at night PRAZOSIN HCL 96498670636 Active Vishal Hui MD Active BACLOFEN 20 MG TABS 1 tab po tid BACLOFEN 84637017280 Active Vishal Hui MD Active ADVAIR DISKUS 250-50 MCG/DOSE AEPB 1 puff BID ADVAIR DISKUS 250-50 MCG/DOSE AEPB FLUTICASONE-SALMETEROL Inactive ESCITALOPRAM OXALATE 20 MG TABS 1 tab po qd ESCITALOPRAM OXALATE 20 MG TABS 120470 ESCITALOPRAM OXALATE Inactive ATENOLOL 25 MG TABS 1 tab po qd ATENOLOL 25 MG TABS 369356 ATENOLOL Inactive BENZTROPINE MESYLATE 1 MG TABS 1 tab po qd BENZTROPINE MESYLATE 1 MG TABS 312343 BENZTROPINE MESYLATE Inactive BUSPIRONE HCL 15 MG TABS 1 tab po TID BUSPIRONE HCL 15 MG TABS 012651 BUSPIRONE HCL Inactive LEVOFLOXACIN 500 MG TABS 1 tab po qd LEVOFLOXACIN 500 MG TABS 771353 LEVOFLOXACIN Inactive PREDNISONE 20 MG TABS 1 tab po qd PREDNISONE 20 MG TABS 585642 PREDNISONE Inactive MIRALAX POWD 1 capfull once daily MIRALAX POWD 381407 POLYETHYLENE GLYCOL 3350 Inactive VERAPAMIL HCL ER 180 MG CR-TABS 1 tab po bid VERAPAMIL HCL ER 180 MG CR-TABS VERAPAMIL HCL Inactive LORATADINE 10 MG TABS 1 tab po qd LORATADINE 10 MG TABS 156005 LORATADINE Inactive LYRICA 50 MG CAPS 1 tab po TID LYRICA 50 MG CAPS PREGABALIN Inactive ZALEPLON 10 MG CAPS 1 cap po every other night ZALEPLON 10 MG CAPS 599049 ZALEPLON Inactive SAPHRIS 5 MG SUBL 1 tab po qd SAPHRIS 5 MG SUBL ASENAPINE MALEATE Inactive TRAZODONE HCL 50 MG TABS 1/2 tab po qd prn for anxiety TRAZODONE HCL 50 MG TABS 958659 TRAZODONE HCL Inactive LATUDA 20 MG TABS Take one by mouth daily LATUDA 20 MG TABS LURASIDONE HCL Inactive LISINOPRIL 20 MG TABS 1 tab po qd LISINOPRIL 20 MG TABS 550669 LISINOPRIL Inactive SAPHRIS 10 MG SUBL 1 [...] po q hs MELATONIN 3 MG CAPS 157186 MELATONIN Inactive KEFLEX 500 MG ORAL CAPS 1 cap QID by mouth KEFLEX 500 MG ORAL CAPS 555436 CEPHALEXIN Inactive CLINDAMYCIN HCL 150 MG CAPS 1 four times a day CLINDAMYCIN HCL 150 MG CAPS 959446 CLINDAMYCIN HCL Inactive CEFDINIR 300 MG CAPS by mouth twice a day CEFDINIR 300 MG CAPS 917489 CEFDINIR Inactive PREDNISONE 20 MG TAB 2 tabs daily for 3 days, 1 tab daily for 3 days, 1/2 tab daily for 2 days PREDNISONE 20 MG TAB 118824 PREDNISONE Inactive BACTRIM DS 800-160 MG TABS 1 po BID x 7 days BACTRIM DS 800-160 MG TABS SULFAMETHOXAZOLE-TRIMETHOPRIM Inactive DIFLUCAN 150 MG TABS 1 pill every other day x 2 doses DIFLUCAN 150 MG TABS 774943 FLUCONAZOLE Inactive Vital Signs Date Name Value [...] pressure, diastolic - 8462-4 78 mm[Hg] BP mcanlly blood pressure, systolic - 8480-6 115 mm[Hg] [...] U/L Chart Maintenance: outside labs entered on [employer] - Hematology leukocyte count, blood 8.9 10*3/mm3 hemoglobin, blood 13.2 g/dL platelet count 364 10*3/mm3 Lab Report: CBC, Comp. Metabolic Panel, Free Thyroxine (L), Thyroid Stim ... - Chemistry blood glucose 101 mg/dL 65-110 urea nitrogen, blood 19 mg/dL 7-18 creatinine, serum 1.10 mg/dL 0.60-1.30 alanine aminotransferase (SGPT), serum 31 U/L 12-78 aspartate aminotransferase (SGOT), serum 18 U/L 15-37 calcium, serum 8.2 mg/dL 8.5-10.1 bilirubin, serum, total 0.20 mg/dL 0.00-1.00 thyroxine, serum, free 0.92 ng/dL 0.76-1.46 TSH 1.20 m[iU]/mL 0.36-3.74 sodium, serum 140 mmol/L 558-821 0107/05/28 potassium, serum 4.2 mmol/L 3.5-5.2 chloride, serum 104 mmol/L 98-107 carbon dioxide, venous blood 28.3 mmol/L 21.0-32.0 Lab Report: CBC, Comp. Metabolic Panel, Free [...] Panel - Chemistry sodium, serum 141 mmol/L 026-593 3542 potassium, serum 4.3 mmol/L 3.5-5.2 chloride, serum [...] Panel - Chemistry sodium, serum 139 mmol/L 207-073 4092/12/31 potassium, serum 4.8 mmol/L 3.5-5.2 chloride, serum 106 mmol/L 98-107 carbon dioxide, venous blood 24.3 mmol/L 21.0-32.0 blood glucose 90 mg/dL 65-110 urea nitrogen, blood 16 mg/dL 7-18 creatinine, serum 1.00 mg/dL 0.60-1.30 alanine aminotransferase (SGPT), serum 41 U/L aspartate aminotransferase (SGOT), serum 17 U/L 15-37 calcium, serum 8.6 mg/dL 8.5-10.1 bilirubin, serum, total 0.30 mg/dL 0.00-1.00 cholesterol, serum 108 mg/dL 012-707 2264/12/31 triglyceride, serum, fasting 120 mg/dL 30-200 HDL cholesterol, serum 28 mg/dL 32-96 LDL cholesterol, serum 56 mg/dL 0-130 Lab Report: MICROALBUMIN - Chemistry albumin/creatinine ratio, urine < 30 mg/g mg/g{creat} 0-29 Lab Report: MICROALBUMIN - Lab microalbumin, urine 10 0-19 Lab Report: [facility] Chemistry RBC, urine, dipstick Negative Negative [...] urine Negative Negative Lab Report: Varicella-Zoater Inga IgG,IgM/68836, HEP Be Antibody/556, RUB ... - Serology rubella antibody, serum, IgG 2.88 Encounters Code Encounter Date Provider Facility [facility]-[id number] Level 4 Est. Patient 13:59:09 CDT Neeraj Collins MD [facility] CPT-29346 Level 3 Est. Patient 15:19:43 CDT Renzo Thornton DO [facility]-12883 Level 3 Est. Patient 18:10:26 CDT Sahara Rodriguez MD [facility]-24629 Level 3 Est. Patient 14:49:50 CDT Vishal Hui MD [facility]-87709 Level 4 Est. Patient 18:41:46 CDT Neeraj Collins MD [facility]-84923 Level 4 Est. Patient 09:18:38 [employer] Vishal Hui MD [facility]-56111 Level 3 Est. Patient 14:43:55 [employer] Vishal Hui MD [facility]-93978 Level 3 Est. Patient 15:26:33 [employer] Sahara Rodriguez MD PhD [facility]9[address]27 Level 3 Est. Patient 10:32:14 [employer] Vishal Hui MD [facility] CPT-37740 Level 3 Est. Patient 15:12:52 [employer] Vishal Hui MD [facility] CPT-59485 Level 4 Est. Patient 09:19:27 CDT Vishal Hui MD [facility] CPT-27079 Level 3 Est. Patient 15:53:00 CDT Renzo Thornton [facility] CPT-76063 Level 3 Est. Patient 15:50:30 CDT Renzo Thornton [facility] CPT-02311 Level 3 Est. Patient 16:55:24 CDT Vishal Hui MD [facility] Procedures Code Procedure Name Date Entry Date Standard Description CPT-60815 Recombivax HB Injection Suspension 5 MCG/0.5ML 10:00:41 CDT CPT-68874 Administration single or combination vaccine inc oral 10 :00:41 CDT CPT-45709 Sono transvag pelvis non OB uterus ovaries cervix 16:36: 57 CDT CPT-40931 LS spine comp w obliq 09:50:55 [employer] CPT-55617 Abd compl w upright 09:50:55 [employer] CPT-J1100 Decadron 4mg (Dexamethasone) 15:51:24 [employer] CPT-J1030 Depo Medrol 40 mg (Methyl Prednisolone Acetate) 15:51: 24 [employer] CPT-87886 Abx/Therapy Injection 15:51:24 [employer] CPT-J1100 Decadron 4mg (Dexamethasone) 15:26:33 [employer] CPT-J1030 Depo Medrol 40 mg (Methyl Prednisolone Acetate) 15:26: 33 [employer] CPT-57118 Sono retroperitoneal complete kidneys and bladder 17:15: 30 CDT CPT-93514 Abd compl w upright 16:09:25 CDT CPT-J1100 Decadron 8mg (Dexamethasone) 17:07:57 CDT CPT-16385 Abx/Therapy Injection 17:07:57 CDT CPT-J1100 Decadron 8mg (Dexamethasone) 16:55:24 CDT CPT-86457 Chest 2V Frontal and Lat 16:32:44 CDT
--- OUTSIDE RECORDS SUMMARY | 2016-11-04 16:39 | XMS REPORT | Clinical Summary ---
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 FLUTICASONE PROPIONATE HFA 01985476143 Active Renzo Thornton DO Active TROPICAMIDE 0.5 % OPHTH SOLN 1 drop PRN eye spasms TROPICAMIDE 36098408657 Active Samantha Stephan RMA Active RISPERDAL 4 MG ORAL TABS 1 tab at bedtime RISPERIDONE 61417106692 Active Samantha Stephan RMA Active LEVAQUIN 500 MG TABS 1 daily for infection LEVOFLOXACIN 74130899911 Active Suzan Boo APRN Active TESSALON PERLES 100 MG CAPS 1 three times a day as needed for cough BENZONATATE 72128689371 Active Suzan Boo APRN Active ZOFRAN 4 MG TABS 1 po q6hr PRN Nausea ONDANSETRON HCL No Longer Active Suzan Boo APRN Active FLUTICASONE PROPIONATE 50 MCG/ACT SUSP 2 sprays each nostril daily before bed. FLUTICASONE PROPIONATE 01989533605 No Longer Active Suzan Boo APRN Active ASPIRIN 325 MG ORAL TABS 1 tab q.d ASPIRIN 69107170433 No Longer Active Suzan Boo APRN Active HALOPERIDOL 10 MG ORAL TABS 1 tab q.d HALOPERIDOL 63785557947 No Longer Active Suzan Boo APRN Active GUAIFENESIN-CODEINE 100-10 MG/5ML SYRP 5ml every 4 to 6 hours as needed for cough GUAIFENESIN-CODEINE 88902699198 No Longer Active Suzan Boo APRN Active ZITHROMAX Z-EARNEST 250 MG TABS 2 today and then 1 daily for 4 days AZITHROMYCIN 29909047236 No Longer Active Suzan Boo APRN Active PREDNISONE 10 MG TABS 2 daily for 5 days then 1 daily for 5 days PREDNISONE 50580073905 Active Suzan Boo APRN Active CLONAZEPAM 1 MG ORAL TABS 1 twice a day and an additional 1 tablet every other day as needed for pseudoseizures or anxiety CLONAZEPAM 84429962264 Active Ahmet Carbajal MD Active HYDROCODONE-ACETAMINOPHEN 5-325 MG ORAL TABS 1 tab two times a day HYDROCODONE-ACETAMINOPHEN 19611463069 No Longer Active Ahmet Carbajal MD Active LAMICTAL 100 MG ORAL TABS 1 tab 2 times qd. LAMOTRIGINE 90157946288 Active Ahmet Carbajal MD Active PREDNISONE 20 MG TABS 2 daily for 5 days then 1 daily for 5 days PREDNISONE 28334525152 No Longer Active Ahmet Carbajal MD Active FLUTICASONE PROPIONATE 50 MCG/ACT SUSP 1 to 2 sprays each nostril daily for allergies FLUTICASONE PROPIONATE 79152512443 Active Tila Nicolas Active BENADRYL 25 MG CAP 4 po at bedtime for insomnia DIPHENHYDRAMINE HCL 33971996727 No Longer Active Ahmet Carbajal MD Active ADVAIR DISKUS 250-50 MCG/DOSE INH AEPB 1 puff twice a day for asthma FLUTICASONE-SALMETEROL 59877782269 No Longer Active Ahmet Carbajal MD Active KLONOPIN 1 MG ORAL TABS 1 tab po TID CLONAZEPAM 02669599679 No Longer Active Ahmet Carbajal MD Active ABILIFY MAINTENA 400 MG IM SUSR 400mg injection every 26 days ARIPIPRAZOLE 08547804243 No Longer Active Ahmet Carbajal MD Active TRAMADOL HCL 50 MG TABS 1/2-1 tab TID PRN TRAMADOL HCL 93814660790 No Longer Active Ahmet Carbajal MD Active BACTRIM DS 800-160 MG TABS 1 twice a day SULFAMETHOXAZOLE- TRIMETHOPRIM 50762862625 No Longer Active Ahmet Carbajal MD Active PROAIR HFA 108 (90 BASE) MCG/ACT AERS 2 puffs four times a day as needed 2015 ALBUTEROL SULFATE 30138164837 Active Ahmet Carbajal MD Active EQ NICOTINE 21 MG/24HR TRANS PT24 Apply daily to stop smoking NICOTINE 57985142806 Active Ahmet Carbajal MD Active MONISTAT 7 COMBO PACK WOODROW 100 & 2 MG-% (9GM) VAG KIT 1 applicatorful per vagina q pm x 7 MICONAZOLE NITRATE 39496136941 No Longer Active Ahmet Carbajal MD Active FLAGYL 500 MG TAB 1 tablet by mouth bid METRONIDAZOLE 63195457342 No Longer Active Ahmet Carbajal MD Active OXYCODONE HCL ER 10 MG ORAL T12A 1/2 tab by mouth every 4 hours prn OXYCODONE HCL 48470634136 No Longer Active Ahmet Carbajal MD Active METHYLPREDNISOLONE 4 MG ORAL TABS po daily METHYLPREDNISOLONE 71594278783 No Longer Active Ahmet Carbajal MD Active LEVOFLOXACIN 500 MG ORAL TABS po daily LEVOFLOXACIN 83411485694 No Longer Active Ahmet Carbajal MD Active VIIBRYD 10 MG ORAL TABS Take 1 tablet once a day VILAZODONE HCL 08055241445 No Longer Active Ahmet Carbajal MD Active TOPAMAX 50 MG ORAL TABS 1 tab twice daily TOPIRAMATE 14448719839 No Longer Active Ahmet Carbajal MD Active DICLOFENAC SODIUM 50 MG TBEC 1 tablet by mouth four times daily PRN Pain 2015 DICLOFENAC SODIUM 33458802054 No Longer Active Ahmet Carbajal MD Active ADZENYS XR-ODT 6.3 MG ORAL TBED 1 tab po daily for ADHD AMPHETAMINE 71499868719 No Longer Active Ahmet Carbajal MD Active CHANTIX 1 MG TABS 1 twice a day to help quit smoking VARENICLINE TARTRATE 36078983766 No Longer Active Dipika Burgos MD Active CHANTIX STARTING MONTH EARNEST 0.5 MG X 11 & 1 MG X 42 TABS take as directed 2015 VARENICLINE TARTRATE 87358518762 No Longer Active Dipika uBrgos MD Active TESSALON PERLES 100 MG CAP 1 to 2 tablets by mouth 3 times daily as needed for cough BENZONATATE 76029105482 No Longer Active Luigi Martínez APRN Active IMITREX 50 MG ORAL TABS 0.5 po x 1 PRN Headache. May repeat dose x 1 in 2 hours if needed SUMATRIPTAN SUCCINATE 81881217548 Active Ahmet Carbajal MD Active HYDROCODONE-ACETAMINOPHEN 5-325 MG TABS 1 to 2 four times a day as needed for pain use until can be seen by specialist HYDROCODONE- ACETAMINOPHEN 10589202896 No Longer Active Vishal Hui MD Active PROAIR HFA 108 (90 BASE) MCG/ACT AERS 2 puffs four times a day as needed 2015 ALBUTEROL SULFATE 38618545469 No Longer Active Vishal Hui MD Active PREDNISONE 20 MG TABS 2 daily for 5 days then 1 daily for 5 days PREDNISONE 88543248284 No Longer Active Vishal Hui MD Active ZITHROMAX Z-EARNEST 250 MG TABS 2 today and then 1 daily for 4 days AZITHROMYCIN 93035547898 No Longer Active Vishal Hui MD Active DICLOFENAC POTASSIUM TABS Take 1 tablet twice a day (pt. is not sure of the dose.) DICLOFENAC POTASSIUM TABS 27099490355 No Longer Active Vishal Hui MD Active VERAPAMIL HCL ER 120 MG ORAL CR-TABS Take 1 tablet by mouth twice a day. VERAPAMIL HCL 35797092256 Active Vishal Hui MD Active FLAGYL 500 MG TAB 1 tablet by mouth bid METRONIDAZOLE 42007759604 No Longer Active Vishal Hui MD Active VALIUM 5 MG TAB Take 1-2 tablets daily DIAZEPAM 19316582158 No Longer Active Fabiola Johnson APRN Active METOPROLOL TARTRATE 25 MG ORAL TABS 1/2 tablet twice daily for heart rate and blood pressure METOPROLOL TARTRATE 32943089818 No Longer Active Fabiola Johnson APRN Active MIRALAX ORAL POWD 17GMS DAILY IN WATER POLYETHYLENE GLYCOL 3350 89524300214 Active TAMARA Casey Active MIRALAX PACK 1 po qd PRN Constipation POLYETHYLENE GLYCOL 3350 49782130360 No Longer Active Ahmet Carbajal MD Active MINIPRESS 2 MG CAPS 4 cap po at night PRAZOSIN HCL 08827660793 No Longer Active Ahmet Carbajal MD Active PIROXICAM 20 MG CAPS 1 cap po qd PRN Pain PIROXICAM 10962939295 No Longer Active Ahmet Carbajal MD Active TRAMADOL HCL 50 MG TABS 1-2 po TID PRN Pain TRAMADOL HCL 76451768443 No Longer Active Ahmet Carbajal MD Active METOPROLOL TARTRATE 50 MG TAB 1 po bid METOPROLOL TARTRATE 10070558285 No Longer Active Ahmet Carbajal MD Active ABILIFY 15 MG ORAL TABS 1 tab daily ARIPIPRAZOLE 28036979698 No Longer Active Ahmet Carbajal MD Active PROZAC 20 MG ORAL CAPS 1 tab daily FLUOXETINE HCL 30448774854 No Longer Active Amhet Carbajal MD Active AMBIEN 5 MG ORAL TABS 1 tab at bedtime ZOLPIDEM TARTRATE 87730277743 No Longer Active Ahmet Carbajal MD Active PREDNISONE 20 MG TAB 2 tabs daily for 4 days, 1 tab daily for 4 days, 1/2 tab daily for 4 days PREDNISONE 87580527836 No Longer Active Ahmet Carbajal MD Active KEFLEX 500 MG CAP 1 po TID x 10 days CEPHALEXIN 20171697021 No Longer Active Vishal Hui MD Active SAPHRIS 5 MG SUBL 1 po bid ASENAPINE MALEATE 30266408810 No Longer Active Jillina Frazell SLAG WORKER Active LATUDA 80 MG TABS Take one by mouth daily LURASIDONE HCL 51740766035 No Longer Active Jillina Frazell SLAG WORKER Active AMLODIPINE BESYLATE 5 MG TABS 1 tablet by mouth daily AMLODIPINE BESYLATE 76306503463 No Longer Active Jillina Frazell SLAG WORKER Active AMITRIPTYLINE HCL 100 MG TAB one at hs AMITRIPTYLINE HCL 82756486304 No Longer Active Vishal Hui MD Active TRAZODONE HCL 100 MG TAB take 1 at bedtime TRAZODONE HCL 83129244005 No Longer Active Vishal Hui MD Active VYVANSE 40 MG CAPS 1 daily, LISDEXAMFETAMINE DIMESYLATE 45781884860 No Longer Active Vishal Hui MD Active IBUPROFEN 600 MG TAB 1 po TID PRN IBUPROFEN 04381889250 No Longer Active Vishal Hui MD Active PROZAC 20 MG CAP Take one by mouth daily FLUOXETINE HCL 30207234383 No Longer Active Vishal Hui MD Active BACTRIM DS 800-160 MG TABS 1 pill by mouth twice daily SULFAMETHOXAZOLE-TRIMETHOPRIM 29410577139 No Longer Active Sahara Rodriguez MD PhD Active DIFLUCAN 150 MG TAB 1 tablet by mouth daily FLUCONAZOLE 24961673427 No Longer Active Vishal Hui MD Active TIZANIDINE HCL 4 MG TABS 1 po q6hr PRN Muscle Spasm/Back Pain TIZANIDINE HCL 29924847486 Active Vishal Hui MD Active CLINDAMYCIN HCL 150 MG CAPS 1 four times a day CLINDAMYCIN HCL 90596909348 No Longer Active Neeraj Collins MD Active KEFLEX 500 MG ORAL CAPS 1 cap QID by mouth CEPHALEXIN 70414883681 No Longer Active Nereaj Collins MD Active DIFLUCAN 150 MG TABS 1 pill every other day x 2 doses FLUCONAZOLE 68652822558 No Longer Active Sahara Rodriguez MD PhD Active MELATONIN 3 MG CAPS 2 po q hs MELATONIN 17971739431 No Longer Active Sahara Rodriguez MD PhD Active MULTIVITAMINS CAPS Take one by mouth daily MULTIPLE VITAMIN 35577718241 No Longer Active Sahara Rodriguez MD PhD Active BACTRIM DS 800-160 MG TAB 1 tab by mouth twice daily TRIMETHOPRIM-SULFAMETHOXAZOLE 86054194774 No Longer Active Sahara Rodriguez MD PhD Active [facility] PROBIOTIC ORAL CHEW 2 daily po PROBIOTIC PRODUCT 83344767474 No Longer Active Sahara Rodriguez MD PhD Active BACTRIM DS 800-160 MG TABS 1 po BID x 7 days SULFAMETHOXAZOLE-TRIMETHOPRIM 74279574034 No Longer Active Vishal Hui MD Active CHANTIX STARTING MONTH EARNEST 0.5 MG X 11 & 1 MG X 42 TABS 0.5mg daily for 3 days , then 0.5mg BID for 4 days, then 1mg BID VARENICLINE TARTRATE 67081599030 No Longer Active TAMARA Gray Active VERAPAMIL HCL CR 120 MG TAB CR 1 po bid VERAPAMIL HCL 89555326073 No Longer Active Vishal Hui MD Active METOPROLOL SUCCINATE 50 MG TB24 1 tablet by mouth daily METOPROLOL SUCCINATE 56995772305 No Longer Active Vishal Hui MD Active SAPHRIS 10 MG SUBL 1 tab po bid ASENAPINE MALEATE 73883042182 No Longer Active Vishal Hui MD Active LISINOPRIL 20 MG TABS 1 tab po qd LISINOPRIL 42401551729 No Longer Active Vishal Hui MD Active LATUDA 20 MG TABS Take one by mouth daily LURASIDONE HCL 40990280964 No Longer Active Vishal Hui MD Active TRAZODONE HCL 50 MG TABS 1/2 tab po qd prn for anxiety TRAZODONE HCL 84441599150 No Longer Active Vishal Hui MD Active OMEPRAZOLE 20 MG TBEC 1 po q a.m. 30min prior to first food intake OMEPRAZOLE 50918815347 Active TAMARA Casey Active RANITIDINE HCL 150 MG CAPS 1 twice a day RANITIDINE HCL 41919556998 Active Luigi Martínez APRN Active LINZESS 290 MCG CAPS Take one by mouth daily LINACLOTIDE 48135075424 No Longer Active Vishal Hui MD Active SAPHRIS 5 MG SUBL 1 tab po qd ASENAPINE MALEATE 40951999940 No Longer Active Vishal Hui MD Active ZALEPLON 10 MG CAPS 1 cap po every other night ZALEPLON 67977477756 No Longer Active Vishal Hui MD Active LYRICA 50 MG CAPS 1 tab po TID PREGABALIN 81269363975 No Longer Active Vishal Hui MD Active LORATADINE 10 MG TABS 1 tab po qd LORATADINE 17622773461 No Longer Active Vishal Hui MD Active VERAPAMIL HCL ER 180 MG CR-TABS 1 tab po bid VERAPAMIL HCL 97705998811 No Longer Active Vishal Hui MD Active MIRALAX POWD 1 capfull once daily POLYETHYLENE GLYCOL 3350 21972216166 No Longer Active Vishal Hui MD Active PREDNISONE 20 MG TABS 1 tab po qd PREDNISONE 75405665930 No Longer Active Renzo Thornton DO Active LEVOFLOXACIN 500 MG TABS 1 tab po qd LEVOFLOXACIN 52451077364 No Longer Active Renzo Thornton DO Active BUSPIRONE HCL 15 MG TABS 1 tab po TID BUSPIRONE HCL 00517619289 No Longer Active Renzo Thornton DO Active BENZTROPINE MESYLATE 1 MG TABS 1 tab po qd BENZTROPINE MESYLATE 51928208891 No Longer Active Renzo Thornton DO Active ATENOLOL 25 MG TABS 1 tab po qd ATENOLOL 70997644043 No Longer Active Renzo Thornton DO Active ESCITALOPRAM OXALATE 20 MG TABS 1 tab po qd ESCITALOPRAM OXALATE 62536796630 No Longer Active Renzo Thornton DO Active ADVAIR DISKUS 250-50 MCG/DOSE AEPB 1 puff BID FLUTICASONE-SALMETEROL 73188159033 No Longer Active Renzo Thornton DO Active PREDNISONE 20 MG TAB 2 tabs daily for 3 days, 1 tab daily for 3 days, 1/2 tab daily for 2 days PREDNISONE 65811272296 No Longer Active Vishal Hui MD Active CEFDINIR 300 MG CAPS by mouth twice a day CEFDINIR 06377659350 No Longer Active Vishal Hui MD Active LANSOPRAZOLE 30 MG CPDR 1 cap po qd LANSOPRAZOLE 65747237625 No Longer Active Vishal Hui MD Active BACLOFEN 20 MG TABS 1 tab po tid BACLOFEN 37852768277 No Longer Active Vishal Hui MD Active ADVAIR DISKUS 250-50 MCG/DOSE AEPB 1 puff BID ADVAIR DISKUS 250-50 MCG/DOSE AEPB FLUTICASONE-SALMETEROL Inactive ESCITALOPRAM OXALATE 20 MG TABS 1 tab po qd ESCITALOPRAM OXALATE 20 MG TABS 647076 ESCITALOPRAM OXALATE Inactive ATENOLOL 25 MG TABS 1 tab po qd ATENOLOL 25 MG TABS 713103 ATENOLOL Inactive BENZTROPINE MESYLATE 1 MG TABS 1 tab po qd BENZTROPINE MESYLATE 1 MG TABS 515304 BENZTROPINE MESYLATE Inactive BUSPIRONE HCL 15 MG TABS 1 tab po TID BUSPIRONE HCL 15 MG TABS 936018 BUSPIRONE HCL Inactive LEVOFLOXACIN 500 MG TABS 1 tab po qd LEVOFLOXACIN 500 MG TABS 036582 LEVOFLOXACIN Inactive PREDNISONE 20 MG TABS 1 tab po qd PREDNISONE 20 MG TABS 828948 PREDNISONE Inactive MIRALAX POWD 1 capfull once daily MIRALAX POWD 054315 POLYETHYLENE GLYCOL 3350 Inactive VERAPAMIL HCL ER 180 MG CR-TABS 1 tab po bid VERAPAMIL HCL ER 180 MG CR-TABS VERAPAMIL HCL Inactive LORATADINE 10 MG TABS 1 tab po qd LORATADINE 10 MG TABS 641159 LORATADINE Inactive LYRICA 50 MG CAPS 1 tab po TID LYRICA 50 MG CAPS PREGABALIN Inactive ZALEPLON 10 MG CAPS 1 cap po every other night ZALEPLON 10 MG CAPS 113318 ZALEPLON Inactive SAPHRIS 5 MG SUBL 1 tab po qd SAPHRIS 5 MG SUBL ASENAPINE MALEATE Inactive TRAZODONE HCL 50 MG TABS 1/2 tab po qd prn for anxiety TRAZODONE HCL 50 MG TABS 172640 TRAZODONE HCL Inactive LATUDA 20 MG TABS Take one by mouth daily LATUDA 20 MG TABS LURASIDONE HCL Inactive LISINOPRIL 20 MG TABS 1 tab po qd LISINOPRIL 20 MG TABS 362950 LISINOPRIL Inactive SAPHRIS 10 MG SUBL 1 [...] twice daily BACTRIM DS 800-160 MG TAB 208042 TRIMETHOPRIM-SULFAMETHOXAZOLE Inactive MULTIVITAMINS CAPS Take one by mouth daily MULTIVITAMINS CAPS MULTIPLE VITAMIN Inactive MELATONIN 3 MG CAPS 2 po q hs MELATONIN 3 MG CAPS 578374 MELATONIN Inactive KEFLEX 500 MG ORAL CAPS 1 cap QID by mouth KEFLEX 500 MG ORAL CAPS 575393 CEPHALEXIN Inactive CLINDAMYCIN HCL 150 MG CAPS 1 four times a day CLINDAMYCIN HCL 150 MG CAPS 19740326 CLINDAMYCIN HCL Inactive DIFLUCAN 150 MG TAB 1 tablet by mouth daily DIFLUCAN 150 MG TAB 674256 FLUCONAZOLE Inactive PROZAC 20 MG CAP Take one by mouth daily PROZAC 20 MG CAP 439698 FLUOXETINE HCL Inactive IBUPROFEN 600 MG TAB 1 po TID PRN IBUPROFEN 600 MG TAB 415297 IBUPROFEN Inactive VYVANSE 40 MG CAPS 1 daily, VYVANSE 40 MG CAPS LISDEXAMFETAMINE DIMESYLATE Inactive TRAZODONE HCL 100 MG TAB take 1 at bedtime TRAZODONE HCL 100 MG TAB 889271 TRAZODONE HCL Inactive AMITRIPTYLINE HCL 100 MG TAB one at hs AMITRIPTYLINE HCL 100 MG TAB 159778 AMITRIPTYLINE HCL Inactive AMLODIPINE BESYLATE 5 MG TABS 1 tablet by mouth daily AMLODIPINE BESYLATE 5 MG TABS 049154 AMLODIPINE BESYLATE Inactive LATUDA 80 MG TABS Take one by mouth daily LATUDA 80 MG TABS LURASIDONE HCL Inactive SAPHRIS 5 MG SUBL 1 po bid SAPHRIS 5 MG SUBL ASENAPINE MALEATE Inactive PREDNISONE 20 MG TAB 2 tabs daily for 4 days, 1 tab daily for 4 days, 1/2 tab daily for 4 days PREDNISONE 20 MG TAB 965031 PREDNISONE Inactive AMBIEN 5 MG ORAL TABS 1 tab at bedtime AMBIEN 5 MG ORAL TABS 882498 ZOLPIDEM TARTRATE Inactive PROZAC 20 MG ORAL CAPS 1 tab daily PROZAC 20 MG ORAL CAPS 751418 FLUOXETINE HCL Inactive ABILIFY 15 MG ORAL TABS 1 tab daily ABILIFY 15 MG ORAL TABS 161576 ARIPIPRAZOLE Inactive METOPROLOL TARTRATE 50 MG TAB 1 po bid METOPROLOL TARTRATE 50 MG TAB 910936 METOPROLOL TARTRATE Inactive TRAMADOL HCL 50 MG TABS 1-2 po TID PRN Pain TRAMADOL HCL 50 MG TABS 940915 TRAMADOL HCL Inactive PIROXICAM 20 MG CAPS 1 cap po qd PRN Pain PIROXICAM 20 MG CAPS 694372 PIROXICAM Inactive MINIPRESS 2 MG CAPS 4 cap po at night MINIPRESS 2 MG CAPS 272319 PRAZOSIN HCL Inactive MIRALAX PACK 1 po qd PRN Constipation MIRALAX PACK 350373 POLYETHYLENE GLYCOL 3350 Inactive METOPROLOL TARTRATE 25 MG ORAL TABS 1/2 tablet twice daily for heart rate and blood pressure METOPROLOL TARTRATE 25 MG ORAL TABS 834206 METOPROLOL TARTRATE Inactive VALIUM 5 MG TAB Take 1-2 tablets daily VALIUM 5 MG TAB 737566 DIAZEPAM Inactive FLAGYL 500 MG TAB 1 tablet by mouth bid FLAGYL 500 MG TAB 815164 METRONIDAZOLE Inactive DICLOFENAC POTASSIUM TABS Take 1 tablet twice a day (pt. is not sure of the dose.) DICLOFENAC POTASSIUM TABS DICLOFENAC POTASSIUM TABS Inactive ZITHROMAX Z-EARNEST 250 MG TABS 2 today and then 1 daily for 4 days ZITHROMAX Z-EARNEST 250 MG TABS 8572360 AZITHROMYCIN Inactive PREDNISONE 20 MG TABS 2 daily for 5 days then 1 daily for 5 days PREDNISONE 20 MG TABS 578191 PREDNISONE Inactive PROAIR HFA 108 (90 BASE) MCG/ACT AERS 2 puffs four times a day as needed 2015 PROAIR HFA 108 (90 BASE) MCG/ACT AERS ALBUTEROL SULFATE Inactive HYDROCODONE-ACETAMINOPHEN 5-325 MG TABS 1 to 2 four times a day as needed for pain use until can be seen by specialist HYDROCODONE- ACETAMINOPHEN 5-325 MG TABS 299992 HYDROCODONE-ACETAMINOPHEN Inactive TESSALON PERLES 100 MG CAP 1 to 2 tablets by mouth 3 times daily as needed for cough TESSALON PERLES 100 MG CAP 473625 BENZONATATE Inactive CHANTIX STARTING MONTH EARNEST 0.5 [...] Pain 2015 DICLOFENAC SODIUM 50 MG TBEC 700538 DICLOFENAC SODIUM Inactive TOPAMAX 50 MG ORAL TABS 1 tab twice daily TOPAMAX 50 MG ORAL TABS 405223 TOPIRAMATE Inactive VIIBRYD 10 MG ORAL TABS Take 1 tablet once a day VIIBRYD 10 MG ORAL TABS VILAZODONE HCL Inactive LEVOFLOXACIN 500 MG ORAL TABS po daily LEVOFLOXACIN 500 MG ORAL TABS 973485 LEVOFLOXACIN Inactive METHYLPREDNISOLONE 4 MG ORAL TABS po daily METHYLPREDNISOLONE 4 MG ORAL TABS 902157 METHYLPREDNISOLONE Inactive OXYCODONE HCL ER 10 MG ORAL T12A 1/2 tab by mouth every 4 hours prn OXYCODONE HCL ER 10 MG ORAL T12A OXYCODONE HCL Inactive FLAGYL 500 MG TAB 1 tablet by mouth bid FLAGYL 500 MG TAB 680855 METRONIDAZOLE Inactive MONISTAT 7 COMBO PACK WOODROW 100 & 2 MG-% (9GM) VAG KIT 1 applicatorful per vagina q pm x 7 MONISTAT 7 COMBO PACK WOODROW 100 & 2 MG-% (9GM) VAG KIT MICONAZOLE NITRATE Inactive BACTRIM DS 800-160 MG TABS 1 twice a day BACTRIM DS 800-160 MG TABS 261258 SULFAMETHOXAZOLE-TRIMETHOPRIM Inactive TRAMADOL HCL 50 MG TABS 1/2-1 tab TID PRN TRAMADOL HCL 50 MG TABS 183061 TRAMADOL HCL Inactive ABILIFY MAINTENA 400 MG IM SUSR 400mg injection every 26 days ABILIFY MAINTENA 400 MG IM SUSR ARIPIPRAZOLE Inactive KLONOPIN 1 MG ORAL TABS 1 tab po TID KLONOPIN 1 MG ORAL TABS 431248 CLONAZEPAM Inactive ADVAIR DISKUS 250-50 MCG/DOSE INH AEPB 1 puff twice a day for asthma ADVAIR DISKUS 250-50 MCG/DOSE INH AEPB FLUTICASONE- SALMETEROL Inactive BENADRYL 25 MG CAP 4 po at bedtime for insomnia BENADRYL 25 MG CAP DIPHENHYDRAMINE HCL Inactive PREDNISONE 20 MG TABS 2 daily for 5 days then 1 daily for 5 days PREDNISONE 20 MG TABS 857326 PREDNISONE Inactive HYDROCODONE-ACETAMINOPHEN 5-325 MG ORAL TABS 1 tab two times a day HYDROCODONE-ACETAMINOPHEN 5-325 MG ORAL TABS 224489 HYDROCODONE-ACETAMINOPHEN Inactive ZITHROMAX Z-EARNEST 250 MG TABS 2 today and then 1 daily for 4 days ZITHROMAX Z-EARNEST 250 MG TABS 8335391 AZITHROMYCIN Inactive GUAIFENESIN-CODEINE 100-10 MG/5ML SYRP 5ml every 4 to 6 hours as needed for cough GUAIFENESIN-CODEINE 100-10 MG/5ML SYRP 690150 GUAIFENESIN-CODEINE Inactive HALOPERIDOL 10 MG ORAL TABS 1 tab q.d HALOPERIDOL 10 MG ORAL TABS 752269 HALOPERIDOL Inactive ASPIRIN 325 MG ORAL TABS 1 tab q.d ASPIRIN 325 MG ORAL TABS 894364 ASPIRIN Inactive FLUTICASONE PROPIONATE 50 MCG/ACT SUSP 2 sprays each nostril daily before bed. FLUTICASONE PROPIONATE 50 MCG/ACT SUSP 2125674 FLUTICASONE PROPIONATE Inactive ZOFRAN 4 MG TABS 1 po q6hr PRN Nausea ZOFRAN 4 MG TABS 372262 ONDANSETRON HCL Inactive CEFDINIR 300 MG CAPS by mouth twice a day CEFDINIR 300 MG CAPS 107198 CEFDINIR Inactive PREDNISONE 20 MG TAB 2 tabs daily for 3 days, 1 tab daily for 3 days, 1/2 tab daily for 2 days PREDNISONE 20 MG TAB 292856 PREDNISONE Inactive BACTRIM DS 800-160 MG TABS 1 po BID x 7 days BACTRIM DS 800-160 MG TABS 19820521 SULFAMETHOXAZOLE-TRIMETHOPRIM Inactive DIFLUCAN 150 MG TABS 1 pill every other day x 2 doses DIFLUCAN 150 MG TABS 206496 FLUCONAZOLE Inactive BACTRIM DS 800-160 MG TABS 1 pill by mouth twice daily BACTRIM DS 800-160 MG TABS 19820521 SULFAMETHOXAZOLE-TRIMETHOPRIM Inactive KEFLEX 500 MG CAP 1 po TID x 10 days KEFLEX 500 MG CAP 698288 CEPHALEXIN Inactive Advance Directives Directive Description Start [...] % 11.0-15.0 platelet count 443 THOUSAND/UL 10*3/mm3 859-364 1507/03/01 mean platelet volume 8.2 fL 7.5-12.5 Lab [...] 369 10^3/MM^3 10*3/mm3 142-424 Lab Report: Chlamydia/GC APTIMA/[id number] - Lab chlamydia DNA probe NOT DETECTED NOT DETECTED Lab Report: Chlamydia/GC [facility]TIMA/[id number] - Microbiology Neisseria gonorrhoeae DNA probe NOT DETECTED NOT DETECTED Lab Report: Chlamydia/GC [facility]TIMA/[id number], Urinalysis, Complete, with Reflex ... - Lab chlamydia DNA probe NOT DETECTED NOT DETECTED Lab Report: Chlamydia/GC [facility]/[id number], Urinalysis, Complete, with Reflex ... - Microbiology Neisseria gonorrhoeae DNA probe NOT DETECTED NOT DETECTED Lab Report: Chlamydia/GC [facility]TIM[facility]/33246, Urinalysis, Complete, with Reflex ... - Urinalysis [...] 27.6 mmol/L 21.0-32.0 sodium, serum 142 mmol/L 599-449 3119/08/08 sodium, serum 140 mmol/L 025-191 2317/08/08 creatinine, serum 0.88 mg/dL 0.55-1.30 alanine aminotransferase [...] mg/dL Encounters Code Encounter Date Provider Facility CPT-[id number] Level 3 Est. Patient 11:04:38 CDT Renzo W [facility] CPT-66521 Level 3 Est. 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 Patient 15:28:23 DROSS SKIMMER Suzan Boo [facility] CPT-09371 Level 4 Est. Patient 10:20:54 DROSS SKIMMER Suzan Boo [facility] CPT-66539 Level 3 Est. Patient 11:47:37 DROSS SKIMMER Ahmet Carbajal MD [facility]-36846 Level 3 Est. Patient 10:40:11 DROSS SKIMMER Ahmet Carbajal MD [facility] CPT-72597 Level 3 Est. Patient 15:07:06 DROSS SKIMMER Neeraj Collins MD [facility] CPT-12909 Level 4 Est. Patient 14:45:00 DROSS SKIMMER Ahmet Carbajal MD [facility] CPT-11617 Level 3 Est. Patient 13:59:59 CDT Luigi Martínez [facility] CPT-18976 Level 3 Est. Patient 18:18:53 CDT Neeraj Collins MD [facility]-35961 Level 3 Est. Patient 15:50:44 CDT Vishal Hui MD [facility] CPT-05020 Level 3 Est. Patient 11:36:17 CDT Ahmet Carbajal MD [facility] CPT-21511 Level 3 Est. Patient 13:29:16 CDT Vishal Hui MD [facility] CPT-24093 Level 3 Est. Patient 14:27:52 CDT Neeraj Collins MD [facility] CPT-94020 Level 3 Est. Patient 08:56:03 CDT Luigi Mart[facility]nez [facility] [facility] CPT-47955 Level 4 Est. Patient 12:11:48 CDT Fabiola Johnson [facility] CPT-33330 Level 3 New Patient 16:53:37 CDT Albert Caldera MD [facility] CPT-06405 Level 3 Est. Patient 11:25:49 CDT Renzo Thornton [facility] CPT-80832 Level 3 Est. Patient 15:22:01 CDT Ahmet Carbajal MD [facility] CPT-15048 Level 4 Est. Patient 09:00:51 DROSS SKIMMER Vishal Hui MD [facility] CPT-31452 Level 3 Est. Patient 11:37:33 DROSS SKIMMER Vishal Hui MD [facility] CPT-82001 Level 3 Est. Patient 08:41:09 DROSS SKIMMER Vishal Hui MD [facility] CPT-70802 Level 4 Est. Patient 10:19:35 DROSS SKIMMER Vishal Hui MD [facility] CPT-07229 Level 3 Est. Patient 13:35:45 CDT Vishal Hui MD [facility] CPT-91705 Level 4 Est. Patient 10:08:37 CDT Vishal Hui MD [facility] CPT-08641 Level 3 Est. Patient 11:22:10 CDT Vishal Hui MD [facility] CPT-07869 Level 3 Est. Patient 11:03:32 CDT Sahara Rodriguez MD, PhD [facility] CPT-29420 Level 3 Est. Patient 09:41:35 CDT Vishal Hui MD [facility] CPT-29489 Level 3 Est. Patient 12:00:41 CDT Neeraj Collins MD [facility] CPT-28797 Level 3 Est. Patient 09:16:24 CDT Vishal Hui MD [facility] CPT-65315 Level 4 Est. Patient 13:59:09 CDT Neeraj Collins MD [facility] CPT-17188 Level 3 Est. Patient 15:19:43 CDT Renzo Thornton [facility] CPT-80601 Level 3 Est. Patient 18:10:26 CDT Sahara Rodriguez MD PhD [facility] CPT-68756 Level 3 Est. Patient 14:49:50 CDT Vishal Hui MD [facility] CPT-75514 Level 4 Est. Patient 18:41:46 CDT Neeraj Collins MD [facility] CPT-65268 Level 4 Est. Patient 09:18:38 DROSS SKIMMER Vishal Hui MD [facility] CPT-16026 Level 3 Est. Patient 14:43:55 DROSS SKIMMER Vishal Hui MD [facility] CPT-73226 Level 3 Est. Patient 15:26:33 DROSS SKIMMER Sahara Rodriguez MD PhD [facility] CPT-31034 Level 3 Est. Patient 10:32:14 DROSS SKIMMER Vishal Hui MD [facility] CPT-21968 Level 3 Est. Patient 15:12:52 DROSS SKIMMER Vishal Hui MD [facility] CPT-51504 Level 4 Est. Patient 09:19:27 CDT Vishal Hui MD [facility] CPT-52630 Level 3 Est. Patient 15:53:00 CDT Renzo Thornton [facility] CPT-36204 Level 3 Est. Patient 15:50:30 CDT Renzo Thornton [facility] CPT-39483 Level 3 Est. Patient 16:55:24 CDT Vishal Hui MD [facility] Procedures Code Procedure Name Date Entry Date Standard Description CPT-69571 Smoking Cessation counseling 11:15:58 DROSS SKIMMER CPT-G0439 [facility] Annual Wellness Exam 09:30:58 DROSS SKIMMER CPT-44425 TSH - LAB USE ONLY 08:50:26 DROSS SKIMMER CPT-70003 CBC - LAB USE ONLY 08:50:26 DROSS SKIMMER CPT-22617 Venipuncture Draw Fee 08:50:26 DROSS SKIMMER CPT-06574 Abx/Therapy Injection 17:34:30 DROSS SKIMMER CPT-43062 Nexplanon Removal with Reinsertion 14:09:32 CDT CPT-J7307 Nexplanon (Implant) 14:09:32 CDT CPT-OV Office Visit 14:09:32 CDT CPT-72973 UA w micro - LAB USE ONLY 16:21:13 CDT CPT-24203 Wet Mount - LAB USE ONLY 16:21:13 CDT CPT-16578 First Vx - Ix admin for Medicare patients 14:37:47 CDT CPT-82745 Fluzone Preservative Free Intramuscular Suspension 14:37 :47 CDT CPT-21363 Abx/Therapy Injection 13:54:22 CDT CPT-71073 Abx/Therapy Injection 08:47:09 CDT CPT-87083 Abx/Therapy Injection 13:29:56 CDT CPT-11562 Abx/Therapy Injection 08:36:16 CDT CPT-25678 Wet Mount - LAB USE ONLY 17:44:58 CDT CPT-91089 UA w micro - LAB USE ONLY 17:44:58 CDT CPT-02829 CMP - LAB USE ONLY 17:44:58 CDT CPT-20366 Venipuncture Draw Fee 17:44:58 CDT CPT-71581 Cervical Min 4V - XRAY USE ONLY 09:01:40 CDT CPT-76774 Chest 2V Frontal and Lat - XRAY USE ONLY 11:06:31 CDT CPT-02964 EKG Trac and Interp - XRAY USE ONLY 11:31:43 CDT 08/26 CPT-J3420 Vitamin B12 1000mcg (Cyanocobalamin) 08:10:26 DROSS SKIMMER 04/12 CPT-23095 Abx/Therapy Injection 08:10:26 DROSS SKIMMER CPT-G0438 Initial Annual Wellness Exam 19:01:01 DROSS SKIMMER CPT-J3420 Vitamin B12 1000mcg (Cyanocobalamin) 16:57:46 CDT 08/14 CPT-20754 Recombivax HB Injection Suspension 5 MCG/0.5ML 08:37:50 DROSS SKIMMER CPT-51508 Immunization Single Admin 08:37:50 DROSS SKIMMER CPT-J3420 Vitamin B12 1000mcg (Cyanocobalamin) 08:32:16 DROSS SKIMMER 03/11 CPT-12259 Abx/Therapy Injection 08:32:16 DROSS SKIMMER CPT-22439 Chest 2V Frontal and Lat 11:46:38 DROSS SKIMMER CPT-76119 Venipuncture Draw Fee 09:12:45 DROSS SKIMMER CPT-J3420 Vitamin B12 1000mcg (Cyanocobalamin) 08:50:15 DROSS SKIMMER 02/08 CPT-92935 Abx/Therapy Injection 08:50:15 DROSS SKIMMER CPT-Cryo Cryotherapy 10:19:35 DROSS SKIMMER CPT-000 Give Appropriate Flu Vaccine 09:22:16 CDT CPT-J3420 Vitamin B12 1000mcg (Cyanocobalamin) 19:08:57 CDT 01/11 CPT-97046 Abx/Therapy Injection 19:08:57 CDT CPT-J3420 Vitamin B12 1000mcg (Cyanocobalamin) 08:19:08 CDT 12/11 CPT-59682 Abx/Therapy Injection 08:19:08 CDT CPT-J3420 Vitamin B12 1000mcg (Cyanocobalamin) 14:48:00 CDT 11/09 CPT-54908 Abx/Therapy Injection 14:47:59 CDT CPT-J3420 Vitamin B12 1000mcg (Cyanocobalamin) 08:34:04 CDT 10/09 CPT-99777 Abx/Therapy Injection 08:34:04 CDT CPT-J3420 Vitamin B12 1000mcg (Cyanocobalamin) 09:18:52 CDT 09/11 CPT-02438 Abx/Therapy Injection 09:18:52 CDT CPT-J3420 Vitamin B12 1000mcg (Cyanocobalamin) 08:35:44 CDT 09/04 CPT-36121 Abx/Therapy Injection 08:35:44 CDT CPT-15527 Immunization Single Admin 11:07:16 CDT CPT-44402 Hepatitis B adult IM 11:07:16 CDT CPT-J3420 Vitamin B12 1000mcg (Cyanocobalamin) 11:00:49 CDT 08/28 CPT-J1040 Depo Medrol 80 mg (Methyl Prednisolone Acetate) 11:00: 49 CDT CPT-39626 Abx/Therapy Injection 11:00:49 CDT CPT-J1040 Depo Medrol 80 mg (Methyl Prednisolone Acetate) 09:16: 23 CDT CPT-J3420 Vitamin B12 1000mcg (Cyanocobalamin) 08:27:05 CDT 08/20 CPT-02677 Abx/Therapy Injection 08:27:05 CDT CPT-50268 Recombivax HB Injection Suspension 5 MCG/0.5ML 10:00:41 CDT CPT-19169 Administration single or combination vaccine inc oral 10 :00:41 CDT CPT-51585 Sono transvag pelvis non OB uterus ovaries cervix 16:36: 57 CDT CPT-56028 LS spine comp w obliq 09:50:55 DROSS SKIMMER CPT-58733 Abd compl w upright 09:50:55 DROSS SKIMMER CPT-J1100 Decadron 4mg (Dexamethasone) 15:51:24 DROSS SKIMMER CPT-J1030 Depo Medrol 40 mg (Methyl Prednisolone Acetate) 15:51: 24 DROSS SKIMMER CPT-18080 Abx/Therapy Injection 15:51:24 DROSS SKIMMER CPT-J1100 Decadron 4mg (Dexamethasone) 15:26:33 DROSS SKIMMER CPT-J1030 Depo Medrol 40 mg (Methyl Prednisolone Acetate) 15:26: 33 DROSS SKIMMER CPT-88226 Sono retroperitoneal complete kidneys and bladder 17:15: 30 CDT CPT-46805 Abd compl w upright 16:09:25 CDT CPT-J1100 Decadron 8mg (Dexamethasone) 17:07:57 CDT CPT-73455 Abx/Therapy Injection 17:07:57 CDT CPT-J1100 Decadron 8mg (Dexamethasone) 16:55:24 CDT CPT-87768 Chest 2V Frontal and Lat 16:32:44 CDT
--- OUTSIDE RECORDS SUMMARY | 2016-11-04 16:42 | XMS REPORT | Clinical Summary ---
Author Author Admin, E Organization 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 V72.31 Active Suzan [...] Hui MD Flank pain, right ICD-789.09 Inactive Vsihal Hui MD G E R D ICD-530.81 Inactive Vishal Hui MD Health screening ICD-V70.0 Inactive Suzan Boo PILE TRIMMER Sinus tachycardia ICD-427.89 Inactive Suzan Boo PILE TRIMMER Smoker/tobacco use disorder-smoking cessation discussed ICD-305.1 Inactive Vishal Hui MD Abdominal pain ICD-789.00 Inactive Vishla Hui MD Cellulitis ICD-682.9 Inactive Vishal Hui [...] a day as needed for cough BENZONATATE 93178212163 No Longer Active Suzan Boo APRN Active BACTRIM DS 800-160 MG TABS 1 twice a day SULFAMETHOXAZOLE-TRIMETHOPRIM 76668366887 No Longer Active Suzan Boo APRN Active DIFLUCAN 150 MG TABS 1 by mouth for yeast FLUCONAZOLE 70867827681 No Longer Active Suzan Boo APRN Active EQ NICOTINE 21 MG/24HR TRANS PT24 Apply daily to stop smoking NICOTINE 15035576618 No Longer Active Suzan Boo APRN Active PREDNISONE 10 MG TABS 2 daily for 5 days then 1 daily for 5 days PREDNISONE 10081466812 No Longer Active Suzan Boo APRN Active LEVAQUIN 500 MG TABS 1 daily for infection LEVOFLOXACIN 78266877972 No Longer Active Suzan Boo APRN Active TROPICAMIDE 0.5 % OPHTH SOLN 1 drop PRN eye spasms TROPICAMIDE 43283096022 No Longer Active Suzan Boo APRN Active PREDNISONE 20 MG TAB 1 tablet daily x 4 days PREDNISONE 61080608008 No Longer Active Suzan Boo APRN Active ACETAMINOPHEN-CODEINE 120-12 MG/5ML SOLN 5 ml by mouth every 4-6 hours if needed for cough ACETAMINOPHEN-CODEINE 78916282863 No Longer Active Suzan Boo APRN Active KEFLEX 500 MG CAP 1 po qid CEPHALEXIN 84562576713 No Longer Active Suzan Boo APRN Active FLOVENT HFA 110 MCG/ACT AERO 2 puffs inhaled b.i.d. FLUTICASONE PROPIONATE HFA 76389763950 Active Renzo Thornton DO Active RISPERDAL 4 MG ORAL TABS 1 tab at bedtime RISPERIDONE 41597948516 Active Samantha Rothman RMA Active ZOFRAN 4 MG TABS 1 po q6hr PRN Nausea ONDANSETRON HCL No Longer Active Suzan Boo APRN Active FLUTICASONE PROPIONATE 50 MCG/ACT SUSP 2 sprays each nostril daily before bed. FLUTICASONE PROPIONATE 64454528595 No Longer Active Suzan Boo APRN Active ASPIRIN 325 MG ORAL TABS 1 tab q.d ASPIRIN 35920531380 No Longer Active Suzan Boo APRN Active HALOPERIDOL 10 MG ORAL TABS 1 tab q.d HALOPERIDOL 64558142585 No Longer Active Suzan Boo APRN Active GUAIFENESIN-CODEINE 100-10 MG/5ML SYRP 5ml every 4 to 6 hours as needed for cough GUAIFENESIN-CODEINE 92091862521 No Longer Active Suzan Boo APRN Active ZITHROMAX Z-EARNEST 250 MG TABS 2 today and then 1 daily for 4 days AZITHROMYCIN 72519918063 No Longer Active Suzan Boo APRN Active CLONAZEPAM 1 MG ORAL TABS 1 twice a day and an additional 1 tablet every other day as needed for pseudoseizures or anxiety CLONAZEPAM 99966398564 Active Ahmet Carbajal MD Active HYDROCODONE-ACETAMINOPHEN 5-325 MG ORAL TABS 1 tab two times a day HYDROCODONE-ACETAMINOPHEN 31705752752 No Longer Active Ahmet Carbajal MD Active LAMICTAL 100 MG ORAL TABS 1 tab 2 times qd. LAMOTRIGINE 01934301906 Active Ahmet Carbajal MD Active PREDNISONE 20 MG TABS 2 daily for 5 days then 1 daily for 5 days PREDNISONE 43651915744 No Longer Active Ahmet Carbajal MD Active FLUTICASONE PROPIONATE 50 MCG/ACT SUSP 1 to 2 sprays each nostril daily for allergies FLUTICASONE PROPIONATE 72403982934 Active Tila Valenzuela Active BENADRYL 25 MG CAP 4 po at bedtime for insomnia DIPHENHYDRAMINE HCL 34168214722 No Longer Active Ahmet Carbajal MD Active ADVAIR DISKUS 250-50 MCG/DOSE INH AEPB 1 puff twice a day for asthma FLUTICASONE-SALMETEROL 89938648605 No Longer Active Ahmet Carbajal MD Active KLONOPIN 1 MG ORAL TABS 1 tab po TID CLONAZEPAM 38662095390 No Longer Active Ahmet Carbajal MD Active ABILIFY MAINTENA 400 MG IM SUSR 400mg injection every 26 days ARIPIPRAZOLE 47732926025 No Longer Active Ahmet Carbajal MD Active TRAMADOL HCL 50 MG TABS 1/2-1 tab TID PRN TRAMADOL HCL 02718206654 No Longer Active Ahmet Carbajal MD Active BACTRIM DS 800-160 MG TABS 1 twice a day SULFAMETHOXAZOLE- TRIMETHOPRIM 82860599449 No Longer Active Ahmet Carbajal MD Active PROAIR HFA 108 (90 BASE) MCG/ACT AERS 2 puffs four times a day as needed 2015 ALBUTEROL SULFATE 39208506951 Active Ahmet Carbajal MD Active MONISTAT 7 COMBO PACK WOODROW 100 & 2 MG-% (9GM) VAG KIT 1 applicatorful per vagina q pm x 7 MICONAZOLE NITRATE 40333821297 No Longer Active Ahmet Carbajal MD Active FLAGYL 500 MG TAB 1 tablet by mouth bid METRONIDAZOLE 43667773100 No Longer Active Ahmet Carbajal MD Active OXYCODONE HCL ER 10 MG ORAL T12A 1/2 tab by mouth every 4 hours prn OXYCODONE HCL 01557605569 No Longer Active Ahmet Carbajal MD Active METHYLPREDNISOLONE 4 MG ORAL TABS po daily METHYLPREDNISOLONE 21663683071 No Longer Active Ahmet Carbajal MD Active LEVOFLOXACIN 500 MG ORAL TABS po daily LEVOFLOXACIN 91127324097 No Longer Active Ahmet Carbajal MD Active VIIBRYD 10 MG ORAL TABS Take 1 tablet once a day VILAZODONE HCL 69034981679 No Longer Active Ahmet Carbajal MD Active TOPAMAX 50 MG ORAL TABS 1 tab twice daily TOPIRAMATE 21327937818 No Longer Active Ahmet Carbajal MD Active DICLOFENAC SODIUM 50 MG TBEC 1 tablet by mouth four times daily PRN Pain 2015 DICLOFENAC SODIUM 50860681359 No Longer Active Ahmet Carbajal MD Active ADZENYS XR-ODT 6.3 MG ORAL TBED 1 tab po daily for ADHD AMPHETAMINE 24336405001 No Longer Active Ahmet Carbajal MD Active CHANTIX 1 MG TABS 1 twice a day to help quit smoking VARENICLINE TARTRATE 40989968520 No Longer Active Dipika Burgos MD Active CHANTIX STARTING MONTH EARNEST 0.5 MG X 11 & 1 MG X 42 TABS take as directed 2015 VARENICLINE TARTRATE 11553616493 No Longer Active Dipika Burgos MD Active TESSALON PERLES 100 MG CAP 1 to 2 tablets by mouth 3 times daily as needed for cough BENZONATATE 65347469007 No Longer Active Luigi Martínez PILE TRIMMER Active IMITREX 50 MG ORAL TABS 0.5 po x 1 PRN Headache. May repeat dose x 1 in 2 hours if needed SUMATRIPTAN SUCCINATE 69058256768 Active Ahmet Carbajal MD Active HYDROCODONE-ACETAMINOPHEN 5-325 MG TABS 1 to 2 four times a day as needed for pain use until can be seen by specialist HYDROCODONE- ACETAMINOPHEN 71635244735 No Longer Active Vishal Hui MD Active PROAIR HFA 108 (90 BASE) MCG/ACT AERS 2 puffs four times a day as needed 2015 ALBUTEROL SULFATE 86482149668 No Longer Active Vishal Hui MD Active PREDNISONE 20 MG TABS 2 daily for 5 days then 1 daily for 5 days PREDNISONE 55534298122 No Longer Active Vishal Hui MD Active ZITHROMAX Z-EARNEST 250 MG TABS 2 today and then 1 daily for 4 days AZITHROMYCIN 80673246683 No Longer Active Vishal Hui MD Active DICLOFENAC POTASSIUM TABS Take 1 tablet twice a day (pt. is not sure of the dose.) DICLOFENAC POTASSIUM TABS 15757128075 No Longer Active Vishal Hui MD Active VERAPAMIL HCL ER 120 MG ORAL CR-TABS Take 1 tablet by mouth twice a day. VERAPAMIL HCL 40768582267 Active Vishal Hui MD Active FLAGYL 500 MG TAB 1 tablet by mouth bid METRONIDAZOLE 82439906901 No Longer Active Vishal Hui MD Active VALIUM 5 MG TAB Take 1-2 tablets daily DIAZEPAM 25557227492 No Longer Active Fabiola Johnson APRN Active METOPROLOL TARTRATE 25 MG ORAL TABS 1/2 tablet twice daily for heart rate and blood pressure METOPROLOL TARTRATE 19599451640 No Longer Active Fabiola Johnson APRN Active MIRALAX ORAL POWD 17GMS DAILY IN WATER POLYETHYLENE GLYCOL 3350 93789871172 Active TAMARA Casey Active MIRALAX PACK 1 po qd PRN Constipation POLYETHYLENE GLYCOL 3350 79709774474 No Longer Active Ahmet Carbajal MD Active MINIPRESS 2 MG CAPS 4 cap po at night PRAZOSIN HCL 76484790984 No Longer Active Ahmet Carbajal MD Active PIROXICAM 20 MG CAPS 1 cap po qd PRN Pain PIROXICAM 65621409189 No Longer Active Ahmet Carbajal MD Active TRAMADOL HCL 50 MG TABS 1-2 po TID PRN Pain TRAMADOL HCL 35824397727 No Longer Active Ahmet Carbajal MD Active METOPROLOL TARTRATE 50 MG TAB 1 po bid METOPROLOL TARTRATE 80161770717 No Longer Active Ahmet Carbajal MD Active ABILIFY 15 MG ORAL TABS 1 tab daily ARIPIPRAZOLE 84500440123 No Longer Active Ahmet Carbajal MD Active PROZAC 20 MG ORAL CAPS 1 tab daily FLUOXETINE HCL 85488346714 No Longer Active Ahmet Carbajal MD Active AMBIEN 5 MG ORAL TABS 1 tab at bedtime ZOLPIDEM TARTRATE 08756324091 No Longer Active Ahmet Carbajal MD Active PREDNISONE 20 MG TAB 2 tabs daily for 4 days, 1 tab daily for 4 days, 1/2 tab daily for 4 days PREDNISONE 92051967873 No Longer Active Ahmet Carbajal MD Active KEFLEX 500 MG CAP 1 po TID x 10 days CEPHALEXIN 78187394459 No Longer Active Vishal Hui MD Active SAPHRIS 5 MG SUBL 1 po bid ASENAPINE MALEATE 06656063367 No Longer Active Pacollina Mauricio PILE TRIMMER Active LATUDA 80 MG TABS Take one by mouth daily LURASIDONE HCL 33912475823 No Longer Active Jillina Fralebron PILE TRIMMER Active AMLODIPINE BESYLATE 5 MG TABS 1 tablet by mouth daily AMLODIPINE BESYLATE 47948906022 No Longer Active Pacollina Mauricio PILE TRIMMER Active AMITRIPTYLINE HCL 100 MG TAB one at hs AMITRIPTYLINE HCL 73999398043 No Longer Active Vishal Hui MD Active TRAZODONE HCL 100 MG TAB take 1 at bedtime TRAZODONE HCL 52240503643 No Longer Active Vishal Hui MD Active VYVANSE 40 MG CAPS 1 daily, LISDEXAMFETAMINE DIMESYLATE 01811758188 No Longer Active Vishal Hui MD Active IBUPROFEN 600 MG TAB 1 po TID PRN IBUPROFEN 03002451051 No Longer Active Vishal Hui MD Active PROZAC 20 MG CAP Take one by mouth daily FLUOXETINE HCL 51075826503 No Longer Active Vishal Hui MD Active BACTRIM DS 800-160 MG TABS 1 pill by mouth twice daily SULFAMETHOXAZOLE-TRIMETHOPRIM 41569300617 No Longer Active Sahara Rodriguez MD PhD Active DIFLUCAN 150 MG TAB 1 tablet by mouth daily FLUCONAZOLE 58279417831 No Longer Active Vishal Hui MD Active TIZANIDINE HCL 4 MG TABS 1 po q6hr PRN Muscle Spasm/Back Pain TIZANIDINE HCL 53987962684 Active Vishal Hui MD Active CLINDAMYCIN HCL 150 MG CAPS 1 four times a day CLINDAMYCIN HCL 37159243443 No Longer Active Neeraj Collins MD Active KEFLEX 500 MG ORAL CAPS 1 cap QID by mouth CEPHALEXIN 27047838205 No Longer Active Neeraj Collins MD Active DIFLUCAN 150 MG TABS 1 pill every other day x 2 doses FLUCONAZOLE 84255451936 No Longer Active Sahara Rodriguez MD PhD Active MELATONIN 3 MG CAPS 2 po q hs MELATONIN 21757113305 No Longer Active Sahara Rodriguez MD PhD Active MULTIVITAMINS CAPS Take one by mouth daily MULTIPLE VITAMIN 03379806927 No Longer Active Sahara Rodriguez MD PhD Active BACTRIM DS 800-160 MG TAB 1 tab by mouth twice daily TRIMETHOPRIM-SULFAMETHOXAZOLE 61406164172 No Longer Active Sahara Rodriguez MD PhD Active [facility] PROBIOTIC ORAL CHEW 2 daily po PROBIOTIC PRODUCT 62308690964 No Longer Active Sahara Rodriguez MD PhD Active BACTRIM DS 800-160 MG TABS 1 po BID x 7 days SULFAMETHOXAZOLE-TRIMETHOPRIM 23158873737 No Longer Active Vishal Hui MD Active CHANTIX STARTING MONTH EARNEST 0.5 MG X 11 & 1 MG X 42 TABS 0.5mg daily for 3 days , then 0.5mg BID for 4 days, then 1mg BID VARENICLINE TARTRATE 92297349024 No Longer Active TAMARA Gray Active VERAPAMIL HCL CR 120 MG TAB CR 1 po bid VERAPAMIL HCL 99618878336 No Longer Active Vishal Hui MD Active METOPROLOL SUCCINATE 50 MG TB24 1 tablet by mouth daily METOPROLOL SUCCINATE 06315359743 No Longer Active Vishal Hui MD Active SAPHRIS 10 MG SUBL 1 tab po bid ASENAPINE MALEATE 77278569408 No Longer Active Vishal Hui MD Active LISINOPRIL 20 MG TABS 1 tab po qd LISINOPRIL 28475072185 No Longer Active Vishal Hui MD Active LATUDA 20 MG TABS Take one by mouth daily LURASIDONE HCL 79861090659 No Longer Active Vishal Hui MD Active TRAZODONE HCL 50 MG TABS 1/2 tab po qd prn for anxiety TRAZODONE HCL 50576678247 No Longer Active Vishal Hiu MD Active OMEPRAZOLE 20 MG TBEC 1 po q a.m. 30min prior to first food intake OMEPRAZOLE 49149485853 Active TAMARA Casey Active RANITIDINE HCL 150 MG CAPS 1 twice a day RANITIDINE HCL 72633783437 Active Jillina Frazell PILE TRIMMER Active LINZESS 290 MCG CAPS Take one by mouth daily LINACLOTIDE 61001877982 No Longer Active iVshal Hui MD Active SAPHRIS 5 MG SUBL 1 tab po qd ASENAPINE MALEATE 78612906207 No Longer Active Vishal Hui MD Active ZALEPLON 10 MG CAPS 1 cap po every other night ZALEPLON 37662873062 No Longer Active Vishal Hui MD Active LYRICA 50 MG CAPS 1 tab po TID PREGABALIN 12540533433 No Longer Active Vishal Hui MD Active LORATADINE 10 MG TABS 1 tab po qd LORATADINE 25105977085 No Longer Active Vishal Hui MD Active VERAPAMIL HCL ER 180 MG CR-TABS 1 tab po bid VERAPAMIL HCL 74234263201 No Longer Active Vishal Hui MD Active MIRALAX POWD 1 capfull once daily POLYETHYLENE GLYCOL 3350 19239014008 No Longer Active Vishal Hui MD Active PREDNISONE 20 MG TABS 1 tab po qd PREDNISONE 76795576299 No Longer Active Renzo Thornton DO Active LEVOFLOXACIN 500 MG TABS 1 tab po qd LEVOFLOXACIN 35908826221 No Longer Active Renzo Thornton DO Active BUSPIRONE HCL 15 MG TABS 1 tab po TID BUSPIRONE HCL 78625859836 No Longer Active Renzo Thornton DO Active BENZTROPINE MESYLATE 1 MG TABS 1 tab po qd BENZTROPINE MESYLATE 04430810668 No Longer Active Renzo Thornton DO Active ATENOLOL 25 MG TABS 1 tab po qd ATENOLOL 48183603346 No Longer Active Renzo Thornton DO Active ESCITALOPRAM OXALATE 20 MG TABS 1 tab po qd ESCITALOPRAM OXALATE 77895474929 No Longer Active Renzo Thornton DO Active ADVAIR DISKUS 250-50 MCG/DOSE AEPB 1 puff BID FLUTICASONE-SALMETEROL 15225889701 No Longer Active Renzo Thornton DO Active PREDNISONE 20 MG TAB 2 tabs daily for 3 days, 1 tab daily for 3 days, 1/2 tab daily for 2 days PREDNISONE 29080108440 No Longer Active Vishal Hui MD Active CEFDINIR 300 MG CAPS by mouth twice a day CEFDINIR 05733305217 No Longer Active Vishal Hui MD Active LANSOPRAZOLE 30 MG CPDR 1 cap po qd LANSOPRAZOLE 50832967689 No Longer Active Vishal Hui MD Active BACLOFEN 20 MG TABS 1 tab po tid BACLOFEN 89846592843 No Longer Active Vishal Hui MD Active ADVAIR DISKUS 250-50 MCG/DOSE AEPB 1 puff BID ADVAIR DISKUS 250-50 MCG/DOSE AEPB FLUTICASONE-SALMETEROL Inactive ESCITALOPRAM OXALATE 20 MG TABS 1 tab po qd ESCITALOPRAM OXALATE 20 MG TABS 789688 ESCITALOPRAM OXALATE Inactive ATENOLOL 25 MG TABS 1 tab po qd ATENOLOL 25 MG TABS 276812 ATENOLOL Inactive BENZTROPINE MESYLATE 1 MG TABS 1 tab po qd BENZTROPINE MESYLATE 1 MG TABS 426527 BENZTROPINE MESYLATE Inactive BUSPIRONE HCL 15 MG TABS 1 tab po TID BUSPIRONE HCL 15 MG TABS 726223 BUSPIRONE HCL Inactive LEVOFLOXACIN 500 MG TABS 1 tab po qd LEVOFLOXACIN 500 MG TABS 976481 LEVOFLOXACIN Inactive PREDNISONE 20 MG TABS 1 tab po qd PREDNISONE 20 MG TABS 633316 PREDNISONE Inactive MIRALAX POWD 1 capfull once daily MIRALAX POWD 243450 POLYETHYLENE GLYCOL 3350 Inactive VERAPAMIL HCL ER 180 MG CR-TABS 1 tab po bid VERAPAMIL HCL ER 180 MG CR-TABS VERAPAMIL HCL Inactive LORATADINE 10 MG TABS 1 tab po qd LORATADINE 10 MG TABS 710416 LORATADINE Inactive LYRICA 50 MG CAPS 1 tab po TID LYRICA 50 MG CAPS PREGABALIN Inactive ZALEPLON 10 MG CAPS 1 cap po every other night ZALEPLON 10 MG CAPS 306182 ZALEPLON Inactive SAPHRIS 5 MG SUBL 1 tab po qd SAPHRIS 5 MG SUBL ASENAPINE MALEATE Inactive TRAZODONE HCL 50 MG TABS 1/2 tab po qd prn for anxiety TRAZODONE HCL 50 MG TABS 982181 TRAZODONE HCL Inactive LATUDA 20 MG TABS Take one by mouth daily LATUDA 20 MG TABS LURASIDONE HCL Inactive LISINOPRIL 20 MG TABS 1 tab po qd LISINOPRIL 20 MG TABS 011523 LISINOPRIL Inactive SAPHRIS 10 MG SUBL 1 [...] twice daily BACTRIM DS 800-160 MG TAB 827558 TRIMETHOPRIM-SULFAMETHOXAZOLE Inactive MULTIVITAMINS CAPS Take one by mouth daily MULTIVITAMINS CAPS MULTIPLE VITAMIN Inactive MELATONIN 3 MG CAPS 2 po q hs MELATONIN 3 MG CAPS 579493 MELATONIN Inactive KEFLEX 500 MG ORAL CAPS 1 cap QID by mouth KEFLEX 500 MG ORAL CAPS 351732 CEPHALEXIN Inactive CLINDAMYCIN HCL 150 MG CAPS 1 four times a day CLINDAMYCIN HCL 150 MG CAPS 896546 CLINDAMYCIN HCL Inactive DIFLUCAN 150 MG TAB 1 tablet by mouth daily DIFLUCAN 150 MG TAB 523558 FLUCONAZOLE Inactive PROZAC 20 MG CAP Take one by mouth daily PROZAC 20 MG CAP 622371 FLUOXETINE HCL Inactive IBUPROFEN 600 MG TAB 1 po TID PRN IBUPROFEN 600 MG TAB 905234 IBUPROFEN Inactive VYVANSE 40 MG CAPS 1 daily, VYVANSE 40 MG CAPS LISDEXAMFETAMINE DIMESYLATE Inactive TRAZODONE HCL 100 MG TAB take 1 at bedtime TRAZODONE HCL 100 MG TAB 264984 TRAZODONE HCL Inactive AMITRIPTYLINE HCL 100 MG TAB one at hs AMITRIPTYLINE HCL 100 MG TAB 175592 AMITRIPTYLINE HCL Inactive AMLODIPINE BESYLATE 5 MG TABS 1 tablet by mouth daily AMLODIPINE BESYLATE 5 MG TABS 588776 AMLODIPINE BESYLATE Inactive LATUDA 80 MG TABS Take one by mouth daily LATUDA 80 MG TABS LURASIDONE HCL Inactive SAPHRIS 5 MG SUBL 1 po bid SAPHRIS 5 MG SUBL ASENAPINE MALEATE Inactive PREDNISONE 20 MG TAB 2 tabs daily for 4 days, 1 tab daily for 4 days, 1/2 tab daily for 4 days PREDNISONE 20 MG TAB 095585 PREDNISONE Inactive AMBIEN 5 MG ORAL TABS 1 tab at bedtime AMBIEN 5 MG ORAL TABS 811613 ZOLPIDEM TARTRATE Inactive PROZAC 20 MG ORAL CAPS 1 tab daily PROZAC 20 MG ORAL CAPS 550280 FLUOXETINE HCL Inactive ABILIFY 15 MG ORAL TABS 1 tab daily ABILIFY 15 MG ORAL TABS 493893 ARIPIPRAZOLE Inactive METOPROLOL TARTRATE 50 MG TAB 1 po bid METOPROLOL TARTRATE 50 MG TAB 434147 METOPROLOL TARTRATE Inactive TRAMADOL HCL 50 MG TABS 1-2 po TID PRN Pain TRAMADOL HCL 50 MG TABS 763439 TRAMADOL HCL Inactive PIROXICAM 20 MG CAPS 1 cap po qd PRN Pain PIROXICAM 20 MG CAPS 298788 PIROXICAM Inactive MINIPRESS 2 MG CAPS 4 cap po at night MINIPRESS 2 MG CAPS 139696 PRAZOSIN HCL Inactive MIRALAX PACK 1 po qd PRN Constipation MIRALAX PACK 871411 POLYETHYLENE GLYCOL 3350 Inactive METOPROLOL TARTRATE 25 MG ORAL TABS 1/2 tablet twice daily for heart rate and blood pressure METOPROLOL TARTRATE 25 MG ORAL TABS 402402 METOPROLOL TARTRATE Inactive VALIUM 5 MG TAB Take 1-2 tablets daily VALIUM 5 MG TAB 669122 DIAZEPAM Inactive FLAGYL 500 MG TAB 1 tablet by mouth bid FLAGYL 500 MG TAB 288229 METRONIDAZOLE Inactive DICLOFENAC POTASSIUM TABS Take 1 tablet twice a day (pt. is not sure of the dose.) DICLOFENAC POTASSIUM TABS DICLOFENAC POTASSIUM TABS Inactive ZITHROMAX Z-EARNEST 250 MG TABS 2 today and then 1 daily for 4 days ZITHROMAX Z-EARNEST 250 MG TABS 6546220 AZITHROMYCIN Inactive PREDNISONE 20 MG TABS 2 daily for 5 days then 1 daily for 5 days PREDNISONE 20 MG TABS 389721 PREDNISONE Inactive PROAIR HFA 108 (90 BASE) MCG/ACT AERS 2 puffs four times a day as needed 2015 PROAIR HFA 108 (90 BASE) MCG/ACT AERS ALBUTEROL SULFATE Inactive HYDROCODONE-ACETAMINOPHEN 5-325 MG TABS 1 to 2 four times a day as needed for pain use until can be seen by specialist HYDROCODONE- ACETAMINOPHEN 5-325 MG TABS 638876 HYDROCODONE-ACETAMINOPHEN Inactive TESSALON PERLES 100 MG CAP 1 to 2 tablets by mouth 3 times daily as needed for cough TESSALON PERLES 100 MG CAP 951191 BENZONATATE Inactive CHANTIX STARTING MONTH EARNEST 0.5 [...] Pain 2015 DICLOFENAC SODIUM 50 MG TBEC 205204 DICLOFENAC SODIUM Inactive TOPAMAX 50 MG ORAL TABS 1 tab twice daily TOPAMAX 50 MG ORAL TABS 749692 TOPIRAMATE Inactive VIIBRYD 10 MG ORAL TABS Take 1 tablet once a day VIIBRYD 10 MG ORAL TABS VILAZODONE HCL Inactive LEVOFLOXACIN 500 MG ORAL TABS po daily LEVOFLOXACIN 500 MG ORAL TABS 583209 LEVOFLOXACIN Inactive METHYLPREDNISOLONE 4 MG ORAL TABS po daily METHYLPREDNISOLONE 4 MG ORAL TABS 033888 METHYLPREDNISOLONE Inactive OXYCODONE HCL ER 10 MG ORAL T12A 1/2 tab by mouth every 4 hours prn OXYCODONE HCL ER 10 MG ORAL T12A OXYCODONE HCL Inactive FLAGYL 500 MG TAB 1 tablet by mouth bid FLAGYL 500 MG TAB 298277 METRONIDAZOLE Inactive MONISTAT 7 COMBO PACK WOODROW 100 & 2 MG-% (9GM) VAG KIT 1 applicatorful per vagina q pm x 7 MONISTAT 7 COMBO PACK WOODROW 100 & 2 MG-% (9GM) VAG KIT MICONAZOLE NITRATE Inactive BACTRIM DS 800-160 MG TABS 1 twice a day BACTRIM DS 800-160 MG TABS 718883 SULFAMETHOXAZOLE-TRIMETHOPRIM Inactive TRAMADOL HCL 50 MG TABS 1/2-1 tab TID PRN TRAMADOL HCL 50 MG TABS 937942 TRAMADOL HCL Inactive ABILIFY MAINTENA 400 MG IM SUSR 400mg injection every 26 days ABILIFY MAINTENA 400 MG IM SUSR ARIPIPRAZOLE Inactive KLONOPIN 1 MG ORAL TABS 1 tab po TID KLONOPIN 1 MG ORAL TABS 619558 CLONAZEPAM Inactive ADVAIR DISKUS 250-50 MCG/DOSE INH AEPB 1 puff twice a day for asthma ADVAIR DISKUS 250-50 MCG/DOSE INH AEPB FLUTICASONE- SALMETEROL Inactive BENADRYL 25 MG CAP 4 po at bedtime for insomnia BENADRYL 25 MG CAP DIPHENHYDRAMINE HCL Inactive PREDNISONE 20 MG TABS 2 daily for 5 days then 1 daily for 5 days PREDNISONE 20 MG TABS 692175 PREDNISONE Inactive HYDROCODONE-ACETAMINOPHEN 5-325 MG ORAL TABS 1 tab two times a day HYDROCODONE-ACETAMINOPHEN 5-325 MG ORAL TABS 292224 HYDROCODONE-ACETAMINOPHEN Inactive ZITHROMAX Z-EARNEST 250 MG TABS 2 today and then 1 daily for 4 days ZITHROMAX Z-EARNEST 250 MG TABS 0971349 AZITHROMYCIN Inactive GUAIFENESIN-CODEINE 100-10 MG/5ML SYRP 5ml every 4 to 6 hours as needed for cough GUAIFENESIN-CODEINE 100-10 MG/5ML SYRP 927867 GUAIFENESIN-CODEINE Inactive HALOPERIDOL 10 MG ORAL TABS 1 tab q.d HALOPERIDOL 10 MG ORAL TABS 132329 HALOPERIDOL Inactive ASPIRIN 325 MG ORAL TABS 1 tab q.d ASPIRIN 325 MG ORAL TABS 940792 ASPIRIN Inactive FLUTICASONE PROPIONATE 50 MCG/ACT SUSP 2 sprays each nostril daily before bed. FLUTICASONE PROPIONATE 50 MCG/ACT SUSP 0095011 FLUTICASONE PROPIONATE Inactive ZOFRAN 4 MG TABS 1 po q6hr PRN Nausea ZOFRAN 4 MG TABS 636032 ONDANSETRON HCL Inactive KEFLEX 500 MG CAP 1 po qid KEFLEX 500 MG CAP 707468 CEPHALEXIN Inactive ACETAMINOPHEN-CODEINE 120-12 MG/5ML SOLN 5 ml by mouth every 4-6 hours if needed for cough ACETAMINOPHEN-CODEINE 120-12 MG/5ML SOLN 292461 ACETAMINOPHEN-CODEINE Inactive PREDNISONE 20 MG TAB 1 tablet daily x 4 days PREDNISONE 20 MG TAB 468373 PREDNISONE Inactive TROPICAMIDE 0.5 % OPHTH SOLN 1 drop PRN eye spasms TROPICAMIDE 0.5 % OPHTH SOLN 587369 TROPICAMIDE Inactive LEVAQUIN 500 MG TABS 1 daily for infection LEVAQUIN 500 MG TABS 795989 LEVOFLOXACIN Inactive PREDNISONE 10 MG TABS 2 [...] twice a day CEFDINIR 300 MG CAPS 110864 CEFDINIR Inactive PREDNISONE 20 MG TAB 2 tabs daily for 3 days, 1 tab daily for 3 days, 1/2 tab daily for 2 days PREDNISONE 20 MG TAB 850613 PREDNISONE Inactive BACTRIM DS 800-160 MG TABS 1 po BID x 7 days BACTRIM DS 800-160 MG TABS 712985 SULFAMETHOXAZOLE-TRIMETHOPRIM Inactive DIFLUCAN 150 MG TABS 1 pill every other day x 2 doses DIFLUCAN 150 MG TABS 19751126 FLUCONAZOLE Inactive BACTRIM DS 800-160 MG TABS 1 pill by mouth twice daily BACTRIM DS 800-160 MG TABS 882925 SULFAMETHOXAZOLE-TRIMETHOPRIM Inactive KEFLEX 500 MG CAP 1 po TID x 10 days KEFLEX 500 MG CAP 471429 CEPHALEXIN Inactive Advance Directives Directive Description Start [...] % 11.0-15.0 platelet count 443 THOUSAND/UL 10*3/mm3 314-894 0793/03/01 mean platelet volume 8.2 fL 7.5-12.5 Lab [...] 369 10^3/MM^3 10*3/mm3 142-424 Lab Report: Chlamydia/GC APTIMA/[id number] - Lab chlamydia DNA probe NOT DETECTED NOT DETECTED Lab Report: Chlamydia/GC APTIMA/[id number] - Microbiology Neisseria gonorrhoeae DNA probe NOT DETECTED NOT DETECTED Lab Report: Chlamydia/[id number], Urinalysis, Complete, with Reflex ... - Lab chlamydia DNA probe NOT DETECTED NOT DETECTED Lab Report: Chlamydia/[id number]/[id number], Urinalysis, Complete, with Reflex ... - Microbiology Neisseria gonorrhoeae DNA probe NOT DETECTED NOT DETECTED Lab Report: Chlamydia/GC [facility]TIM[facility]/[id number], Urinalysis, Complete, with Reflex ... - Urinalysis microalbumin/total urine volume 2 mg/L Units converted. See lab report for original value. microalbumin/creatinine ratio, urine 9 MCG/MG CREAT mg/L <30 Lab Report: Comp. Metabolic Panel - Chemistry sodium, serum 142 mmol/L [phone]/06/08 carbon dioxide, venous blood 27.6 mmol/L 21.0-32.0 potassium, serum 4.0 mmol/L 3.5-5.2 chloride, serum 105 mmol/L 98-107 blood glucose 95 mg/dL 65-110 urea nitrogen, blood 8 mg/dL 7-18 creatinine, serum 0.75 mg/dL 0.55-1.30 alanine aminotransferase (SGPT), serum 49 U/L 12-78 aspartate aminotransferase (SGOT), serum 28 U/L 15-37 calcium, serum 9.4 mg/dL 8.5-10.1 bilirubin, serum, total 0.30 mg/dL 0.00-1.00 sodium, serum 140 mmol/L [id number] 6781/08/08 carbon dioxide, venous blood 33.7 mmol/L 21.0-32.0 [...] mg/dL Encounters Code Encounter Date Provider Facility CPT-35959 Level 3 Est. Patient 10:00:25 CDT Suzan Boo [facility] CPT-12571 Level 3 Est. Patient 10:29:30 CDT Suzan Boo [facility] CPT-36039 Level 3 Est. Patient 11:04:38 CDT Renzo Thornton DO [facility] CPT-46082 Level 3 Est. Patient 11:15:58 DIAMOND EXPERT Renzo Thornton DO [facility] CPT-13556 Level 3 Est. Patient 15:28:23 DIAMOND EXPERT Suzan Boo [facility] CPT-08558 Level 4 Est. Patient 10:20:54 DIAMOND EXPERT Suzan Boo [facility] CPT-66512 Level 3 Est. Patient 11:47:37 DIAMOND EXPERT Ahmet Carbajal MD [facility] CPT-76175 Level 3 Est. Patient 10:40:11 DIAMOND EXPERT Ahmet Carbajal MD [facility] CPT-27659 Level 3 Est. Patient 15:07:06 DIAMOND EXPERT Neeraj Collins MD [facility] CPT-77809 Level 4 Est. Patient 14:45:00 DIAMOND EXPERT Ahmet Carbajal MD [facility]-01860 Level 3 Est. Patient 13:59:59 CDT Luigi Martínez [facility]-17797 Level 3 Est. Patient 18:18:53 CDT Neeraj Collins MD [facility] CPT-83945 Level 3 Est. Patient 15:50:44 CDT Vishal Hui MD [facility]-12881 Level 3 Est. Patient 11:36:17 CDT Ahmet Carbajal MD [facility] CPT-99998 Level 3 Est. Patient 13:29:16 CDT Vishal Hui MD [facility] CPT-14730 Level 3 Est. Patient 14:27:52 CDT Neeraj Collins MD [facility] CPT-36600 Level 3 Est. Patient 08:56:03 CDT Luigi Martínez [facility] CPT-08438 Level 4 Est. Patient 12:11:48 CDT Fabiola Johnson [facility] CPT-49267 Level 3 New Patient 16:53:37 CDT Albert Caldera MD [facility] CPT-12637 Level 3 Est. Patient 11:25:49 CDT Renzo Thornton [facility] CPT-15881 Level 3 Est. Patient 15:22:01 CDT Ahmet Carbajal MD [facility] CPT-53811 Level 4 Est. Patient 09:00:51 DIAMOND EXPERT Vishal Hui MD [facility] CPT-65016 Level 3 Est. Patient 11:37:33 DIAMOND EXPERT Vishal Hui MD [facility] CPT-54350 Level 3 Est. Patient 08:41:09 DIAMOND EXPERT Vishal Hui MD [facility] CPT-68511 Level 4 Est. Patient 10:19:35 DIAMOND EXPERT Vishal Hui MD [facility] CPT-18666 Level 3 Est. Patient 13:35:45 CDT Vishal Hui MD [facility] CPT-33180 Level 4 Est. Patient 10:08:37 CDT Vishal Hui MD [facility] CPT-27011 Level 3 Est. Patient 11:22:10 CDT Vishal Hui MD [facility] CPT-45636 Level 3 Est. Patient 11:03:32 CDT Sahara Rodriguez MD, PhD [facility] CPT-81119 Level 3 Est. Patient 09:41:35 CDT Vishal Hui MD [facility] CPT-40674 Level 3 Est. Patient 12:00:41 CDT Neeraj Collins MD [facility] CPT-35309 Level 3 Est. Patient 09:16:24 CDT Vishal Hui MD [facility] CPT-71872 Level 4 Est. Patient 13:59:09 CDT Neeraj Collins MD [facility] CPT-32748 Level 3 Est. Patient 15:19:43 CDT Renzo Thornton DO [facility] CPT-07283 Level 3 Est. Patient 18:10:26 CDT Sahara Rodriguez MD PhD [facility] CPT-11694 Level 3 Est. Patient 14:49:50 CDT Vishal Hui MD [facility] CPT-94798 Level 4 Est. Patient 18:41:46 CDT Neeraj Collins MD [facility] CPT-21402 Level 4 Est. Patient 09:18:38 DIAMOND EXPERT Vishal Hui MD [facility] CPT-44634 Level 3 Est. Patient 14:43:55 DIAMOND EXPERT Vishal Hui MD [facility] CPT-00634 Level 3 Est. Patient 15:26:33 DIAMOND EXPERT Sahara Rodriguez MD [facility] CPT-01609 Level 3 Est. Patient 10:32:14 DIAMOND EXPERT Vishal Hui MD [facility] CPT-79012 Level 3 Est. Patient 15:12:52 DIAMOND EXPERT Vishal Hui MD [facility] CPT-71077 Level 4 Est. Patient 09:19:27 CDT Vishal Hui MD [facility] CPT-86934 Level 3 Est. Patient 15:53:00 CDT Renzo Thornton [facility] CPT-78820 Level 3 Est. Patient 15:50:30 CDT Renzo Thornton [facility] CPT-13598 Level 3 Est. Patient 16:55:24 CDT Vishal Hui MD [facility] Procedures Code Procedure Name Date Entry Date Standard Description CPT-76457 Abd compl w upright - XRAY USE ONLY 10:27:59 CDT 06/28 CPT-32318 Smoking Cessation counseling 11:15:58 DIAMOND EXPERT CPT-G0439 [facility] Annual Wellness Exam 09:30:58 DIAMOND EXPERT CPT-16611 TSH - LAB USE ONLY 08:50:26 DIAMOND EXPERT CPT-64365 CBC - LAB USE ONLY 08:50:26 DIAMOND EXPERT CPT-56835 Venipuncture Draw Fee 08:50:26 DIAMOND EXPERT CPT-51298 Abx/Therapy Injection 17:34:30 DIAMOND EXPERT CPT-07193 Nexplanon Removal with Reinsertion 14:09:32 CDT CPT-J7307 Nexplanon (Implant) 14:09:32 CDT CPT-OV Office Visit 14:09:32 CDT CPT-49952 UA w micro - LAB USE ONLY 16:21:13 CDT CPT-87833 Wet Mount - LAB USE ONLY 16:21:13 CDT CPT-39874 First Vx - Ix admin for Medicare patients 14:37:47 CDT CPT-77102 Fluzone Preservative Free Intramuscular Suspension 14:37 :47 CDT CPT-24941 Abx/Therapy Injection 13:54:22 CDT CPT-22578 Abx/Therapy Injection 08:47:09 CDT CPT-62463 Abx/Therapy Injection 13:29:56 CDT CPT-79014 Abx/Therapy Injection 08:36:16 CDT CPT-89943 Wet Mount - LAB USE ONLY 17:44:58 CDT CPT-97558 UA w micro - LAB USE ONLY 17:44:58 CDT CPT-64749 CMP - LAB USE ONLY 17:44:58 CDT CPT-32193 Venipuncture Draw Fee 17:44:58 CDT CPT-49348 Cervical Min 4V - XRAY USE ONLY 09:01:40 CDT CPT-68490 Chest 2V Frontal and Lat - XRAY USE ONLY 11:06:31 CDT CPT-78393 EKG Trac and Interp - XRAY USE ONLY 11:31:43 CDT 08/26 CPT-J3420 Vitamin B12 1000mcg (Cyanocobalamin) 08:10:26 DIAMOND EXPERT 04/12 CPT-32104 Abx/Therapy Injection 08:10:26 DIAMOND EXPERT CPT-G0438 Initial Annual Wellness Exam 19:01:01 DIAMOND EXPERT CPT-J3420 Vitamin B12 1000mcg (Cyanocobalamin) 16:57:46 CDT 08/14 CPT-52227 Recombivax HB Injection Suspension 5 MCG/0.5ML 08:37:50 DIAMOND EXPERT CPT-00290 Immunization Single Admin 08:37:50 DIAMOND EXPERT CPT-J3420 Vitamin B12 1000mcg (Cyanocobalamin) 08:32:16 DIAMOND EXPERT 03/11 CPT-42822 Abx/Therapy Injection 08:32:16 DIAMOND EXPERT CPT-33954 Chest 2V Frontal and Lat 11:46:38 DIAMOND EXPERT CPT-38508 Venipuncture Draw Fee 09:12:45 DIAMOND EXPERT CPT-J3420 Vitamin B12 1000mcg (Cyanocobalamin) 08:50:15 DIAMOND EXPERT 02/08 CPT-40361 Abx/Therapy Injection 08:50:15 DIAMOND EXPERT CPT-Cryo Cryotherapy 10:19:35 DIAMOND EXPERT CPT-000 Give Appropriate Flu Vaccine 09:22:16 CDT CPT-J3420 Vitamin B12 1000mcg (Cyanocobalamin) 19:08:57 CDT 01/11 CPT-29828 Abx/Therapy Injection 19:08:57 CDT CPT-J3420 Vitamin B12 1000mcg (Cyanocobalamin) 08:19:08 CDT 12/11 CPT-71225 Abx/Therapy Injection 08:19:08 CDT CPT-J3420 Vitamin B12 1000mcg (Cyanocobalamin) 14:48:00 CDT 11/09 CPT-29361 Abx/Therapy Injection 14:47:59 CDT CPT-J3420 Vitamin B12 1000mcg (Cyanocobalamin) 08:34:04 CDT 10/09 CPT-87612 Abx/Therapy Injection 08:34:04 CDT CPT-J3420 Vitamin B12 1000mcg (Cyanocobalamin) 09:18:52 CDT 09/11 CPT-96870 Abx/Therapy Injection 09:18:52 CDT CPT-J3420 Vitamin B12 1000mcg (Cyanocobalamin) 08:35:44 CDT 09/04 CPT-25679 Abx/Therapy Injection 08:35:44 CDT CPT-04526 Immunization Single Admin 11:07:16 CDT CPT-54667 Hepatitis B adult IM 11:07:16 CDT CPT-J3420 Vitamin B12 1000mcg (Cyanocobalamin) 11:00:49 CDT 08/28 CPT-J1040 Depo Medrol 80 mg (Methyl Prednisolone Acetate) 11:00: 49 CDT CPT-24633 Abx/Therapy Injection 11:00:49 CDT CPT-J1040 Depo Medrol 80 mg (Methyl Prednisolone Acetate) 09:16: 23 CDT CPT-J3420 Vitamin B12 1000mcg (Cyanocobalamin) 08:27:05 CDT 08/20 CPT-22141 Abx/Therapy Injection 08:27:05 CDT CPT-65363 Recombivax HB Injection Suspension 5 MCG/0.5ML 10:00:41 CDT CPT-39671 Administration single or combination vaccine inc oral 10 :00:41 CDT CPT-80138 Sono transvag pelvis non OB uterus ovaries cervix 16:36: 57 CDT CPT-68372 LS spine comp w obliq 09:50:55 DIAMOND EXPERT CPT-51996 Abd compl w upright 09:50:55 DIAMOND EXPERT CPT-J1100 Decadron 4mg (Dexamethasone) 15:51:24 DIAMOND EXPERT CPT-J1030 Depo Medrol 40 mg (Methyl Prednisolone Acetate) 15:51: 24 DIAMOND EXPERT CPT-59482 Abx/Therapy Injection 15:51:24 DIAMOND EXPERT CPT-J1100 Decadron 4mg (Dexamethasone) 15:26:33 DIAMOND EXPERT CPT-J1030 Depo Medrol 40 mg (Methyl Prednisolone Acetate) 15:26: 33 DIAMOND EXPERT CPT-58342 Sono retroperitoneal complete kidneys and bladder 17:15: 30 CDT CPT-99173 Abd compl w upright 16:09:25 CDT CPT-J1100 Decadron 8mg (Dexamethasone) 17:07:57 CDT CPT-68645 Abx/Therapy Injection 17:07:57 CDT CPT-J1100 Decadron 8mg (Dexamethasone) 16:55:24 CDT CPT-15673 Chest 2V Frontal and Lat 16:32:44 CDT
--- OUTSIDE RECORDS SUMMARY | 2016-11-04 16:45 | XMS REPORT | Clinical Summary ---
Author Author Admin, [facility] Organization [employer] Address Unknown Phone Unavailable Allergies, Adverse Reactions, [...] Active Ahmet Carbajal MD Generalized anxiety disorder Cutter Ban[employer] Room well woman exam V72.31 Active Suzan Boo [...] Cervicalgia Preop exam V72.84 Active Suzan Rajeev GROOMING ASSISTANT Preoperative examination, unspecified Anxiety Disorder ICD-300.00 Inactive Vishal Hui MD Pneumonia, organism unspecified ICD-486 Inactive Vishal Hui MD Flank pain, right ICD-789.09 Inactive Vishal Hui MD G E R D ICD-530.81 Inactive Vishal Hui MD Health screening ICD-V70.0 Inactive Suzan Boo GROOMING ASSISTANT Sinus tachycardia ICD-427.89 Inactive Suzan Boo GROOMING ASSISTANT Smoker/tobacco use disorder-smoking cessation discussed ICD-305.1 Inactive [...] MD Shortness of breath ICD-786.05 Inactive Vishal Hiu MD Nocturnal hypoxia ICD-799.02 Inactive Suzan Boo [...] twice a day for 5 days TRIMETHOPRIM-SULFAMETHOXAZOLE 83716688446 Active Samantha WAGNERA Active MUPIROCIN 2 % OINT apply twice a day MUPIROCIN 56142737960 No Longer Active Suzan Boo APRN Active BACTRIM DS 800-160 MG TABS 1 twice a day SULFAMETHOXAZOLE-TRIMETHOPRIM 17146416384 No Longer Active Suzan Boo APRN Active DIFLUCAN 150 MG TABS 1 by mouth for yeast FLUCONAZOLE 36437038921 No Longer Active Suzan Boo APRN Active AMITIZA 8 MCG ORAL CAPS 1 capsule twice daily LUBIPROSTONE 55219502970 Active Sheila Calderon LPN Active LINZESS 290 MCG ORAL CAPS 1 tab 30 min prior to first meal each day. LINACLOTIDE 63124797618 No Longer Active Sheila Calderon LPN Active AMITIZA 8 MCG ORAL CAPS 1 tab BID LUBIPROSTONE 72879532079 No Longer Active Lynda Xiao LPN Active LACTULOSE 10 GM/15ML ORAL SOLN 30mL oral BID for IBS-C LACTULOSE 71222454638 Active Suzan Boo APRN Active TESSALON PERLES 100 MG CAPS 1 three times a day as needed for cough BENZONATATE 02905240905 No Longer Active Suzan Boo APRN Active BACTRIM DS 800-160 MG TABS 1 twice a day SULFAMETHOXAZOLE-TRIMETHOPRIM 03666305395 No Longer Active Suzan Boo APRN Active DIFLUCAN 150 MG TABS 1 by mouth for yeast FLUCONAZOLE 24271695142 No Longer Active Suzan Boo APRN Active EQ NICOTINE 21 MG/24HR TRANS PT24 Apply daily to stop smoking NICOTINE 72648337845 No Longer Active Suzan Boo APRN Active PREDNISONE 10 MG TABS 2 daily for 5 days then 1 daily for 5 days PREDNISONE 74155780479 No Longer Active Suzan Boo APRN Active LEVAQUIN 500 MG TABS 1 daily for infection LEVOFLOXACIN 03865611659 No Longer Active Suzan Boo APRN Active TROPICAMIDE 0.5 % OPHTH SOLN 1 drop PRN eye spasms TROPICAMIDE 32913612387 No Longer Active Suzan Boo APRN Active PREDNISONE 20 MG TAB 1 tablet daily x 4 days PREDNISONE 60164342988 No Longer Active Suzan Boo APRN Active ACETAMINOPHEN-CODEINE 120-12 MG/5ML SOLN 5 ml by mouth every 4-6 hours if needed for cough ACETAMINOPHEN-CODEINE 98923381203 No Longer Active Suzan Boo APRN Active KEFLEX 500 MG CAP 1 po qid CEPHALEXIN 09607538544 No Longer Active Suzan Boo APRN Active FLOVENT HFA 110 MCG/ACT AERO 2 puffs inhaled b.i.d. FLUTICASONE PROPIONATE HFA 53190936240 Active Renzo Thornton DO Active RISPERDAL 4 MG ORAL TABS 1 tab at bedtime RISPERIDONE 15487236396 Active Samantha WAGNERA Active ZOFRAN 4 MG TABS 1 po q6hr PRN Nausea ONDANSETRON HCL No Longer Active Suzan Boo APRN Active FLUTICASONE PROPIONATE 50 MCG/ACT SUSP 2 sprays each nostril daily before bed. FLUTICASONE PROPIONATE 55478085493 No Longer Active Suzan Boo APRN Active ASPIRIN 325 MG ORAL TABS 1 tab q.d ASPIRIN 77254022258 No Longer Active Suzan Boo APRN Active HALOPERIDOL 10 MG ORAL TABS 1 tab q.d HALOPERIDOL 05711952660 No Longer Active Suzan Boo APRN Active GUAIFENESIN-CODEINE 100-10 MG/5ML SYRP 5ml every 4 to 6 hours as needed for cough GUAIFENESIN-CODEINE 77749617756 No Longer Active Suzan Boo APRN Active ZITHROMAX Z-EARNEST 250 MG TABS 2 today and then 1 daily for 4 days AZITHROMYCIN 41670745795 No Longer Active Suzan Boo APRN Active CLONAZEPAM 1 MG ORAL TABS 1 twice a day and an additional 1 tablet every other day as needed for pseudoseizures or anxiety CLONAZEPAM 58850461203 Active Suzan Boo APRN Active HYDROCODONE-ACETAMINOPHEN 5-325 MG ORAL TABS 1 tab two times a day HYDROCODONE-ACETAMINOPHEN 91701210565 No Longer Active Ahmet Carbajal MD Active LAMICTAL 100 MG ORAL TABS 1 tab 2 times qd. LAMOTRIGINE 50322476355 Active Ahmet Carbajal MD Active PREDNISONE 20 MG TABS 2 daily for 5 days then 1 daily for 5 days PREDNISONE 25878747316 No Longer Active Ahmet Carbajal MD Active FLUTICASONE PROPIONATE 50 MCG/ACT SUSP 1 to 2 sprays each nostril daily for allergies FLUTICASONE PROPIONATE 44849163218 Active Tila Valenzuela Active BENADRYL 25 MG CAP 4 po at bedtime for insomnia DIPHENHYDRAMINE HCL 04561413539 No Longer Active Ahmet Carbajal MD Active ADVAIR DISKUS 250-50 MCG/DOSE INH AEPB 1 puff twice a day for asthma FLUTICASONE-SALMETEROL 58465718500 No Longer Active Ahmet Carbajal MD Active KLONOPIN 1 MG ORAL TABS 1 tab po TID CLONAZEPAM 51820743815 No Longer Active Ahmet Carbajal MD Active ABILIFY MAINTENA 400 MG IM SUSR 400mg injection every 26 days ARIPIPRAZOLE 48011199478 No Longer Active Ahmet Carbajal MD Active TRAMADOL HCL 50 MG TABS 1/2-1 tab TID PRN TRAMADOL HCL 58626273055 No Longer Active Ahmet Carbajal MD Active BACTRIM DS 800-160 MG TABS 1 twice a day SULFAMETHOXAZOLE- TRIMETHOPRIM 68821332613 No Longer Active Ahmet Carbajal MD Active PROAIR HFA 108 (90 BASE) MCG/ACT AERS 2 puffs four times a day as needed 2015 ALBUTEROL SULFATE 60414583038 Active Honey Hinton GROOMING ASSISTANT Active MONISTAT 7 COMBO PACK WOODROW 100 & 2 MG-% (9GM) VAG KIT 1 applicatorful per vagina q pm x 7 MICONAZOLE NITRATE 13469987251 No Longer Active Ahmet Carbajal MD Active FLAGYL 500 MG TAB 1 tablet by mouth bid METRONIDAZOLE 12331548059 No Longer Active Ahmet Carbajal MD Active OXYCODONE HCL ER 10 MG ORAL T12A 1/2 tab by mouth every 4 hours prn OXYCODONE HCL 97337860751 No Longer Active Ahmet Carbaajl MD Active METHYLPREDNISOLONE 4 MG ORAL TABS po daily METHYLPREDNISOLONE 27406968160 No Longer Active Ahmet Carbajal MD Active LEVOFLOXACIN 500 MG ORAL TABS po daily LEVOFLOXACIN 50035788157 No Longer Active Ahmet Carbajal MD Active VIIBRYD 10 MG ORAL TABS Take 1 tablet once a day VILAZODONE HCL 61643220111 No Longer Active Ahmet Carbajal MD Active TOPAMAX 50 MG ORAL TABS 1 tab twice daily TOPIRAMATE 00460137289 No Longer Active Ahmet Carbajal MD Active DICLOFENAC SODIUM 50 MG TBEC 1 tablet by mouth four times daily PRN Pain 2015 DICLOFENAC SODIUM 12646109288 No Longer Active Ahmet Carbajal MD Active ADZENYS XR-ODT 6.3 MG ORAL TBED 1 tab po daily for ADHD AMPHETAMINE 41856279596 No Longer Active Ahmet Carbajal MD Active CHANTIX 1 MG TABS 1 twice a day to help quit smoking VARENICLINE TARTRATE 29639627053 No Longer Active Dipika Burgos MD Active CHANTIX STARTING MONTH EARNEST 0.5 MG X 11 & 1 MG X 42 TABS take as directed 2015 VARENICLINE TARTRATE 71652320108 No Longer Active Dipika Burgos MD Active TESSALON PERLES 100 MG CAP 1 to 2 tablets by mouth 3 times daily as needed for cough BENZONATATE 67250674646 No Longer Active Luigi Martínez APRN Active IMITREX 50 MG ORAL TABS 0.5 po x 1 PRN Headache. May repeat dose x 1 in 2 hours if needed SUMATRIPTAN SUCCINATE 42843595163 Active Ahmet Carbajal MD Active HYDROCODONE-ACETAMINOPHEN 5-325 MG TABS 1 to 2 four times a day as needed for pain use until can be seen by specialist HYDROCODONE- ACETAMINOPHEN 77762988314 No Longer Active Vishal Hui MD Active PROAIR HFA 108 (90 BASE) MCG/ACT AERS 2 puffs four times a day as needed 2015 ALBUTEROL SULFATE 26170602191 No Longer Active Vishal Hui MD Active PREDNISONE 20 MG TABS 2 daily for 5 days then 1 daily for 5 days PREDNISONE 01890485351 No Longer Active Vishal Hui MD Active ZITHROMAX Z-EARNEST 250 MG TABS 2 today and then 1 daily for 4 days AZITHROMYCIN 79397558395 No Longer Active Vishal Hui MD Active DICLOFENAC POTASSIUM TABS Take 1 tablet twice a day (pt. is not sure of the dose.) DICLOFENAC POTASSIUM TABS 68512429787 No Longer Active Vishal Hui MD Active VERAPAMIL HCL ER 120 MG ORAL CR-TABS Take 1 tablet by mouth twice a day. VERAPAMIL HCL 01036619349 Active Vishal Hui MD Active FLAGYL 500 MG TAB 1 tablet by mouth bid METRONIDAZOLE 47152178180 No Longer Active Vishal Hui MD Active VALIUM 5 MG TAB Take 1-2 tablets daily DIAZEPAM 91857179514 No Longer Active Fabiola Johnson APRN Active METOPROLOL TARTRATE 25 MG ORAL TABS 1/2 tablet twice daily for heart rate and blood pressure METOPROLOL TARTRATE 89577793293 No Longer Active Fabiola Johnson APRN Active MIRALAX ORAL POWD 17GMS DAILY IN WATER POLYETHYLENE GLYCOL 3350 64196207895 Active TAMARA Casey Active MIRALAX PACK 1 po qd PRN Constipation POLYETHYLENE GLYCOL 3350 35157378812 No Longer Active Ahmet Carbajal MD Active MINIPRESS 2 MG CAPS 4 cap po at night PRAZOSIN HCL 26648441492 No Longer Active Ahmet Carbajal MD Active PIROXICAM 20 MG CAPS 1 cap po qd PRN Pain PIROXICAM 83744667058 No Longer Active Ahmet Carbajal MD Active TRAMADOL HCL 50 MG TABS 1-2 po TID PRN Pain TRAMADOL HCL 57095637799 No Longer Active Ahmet Carbajal MD Active METOPROLOL TARTRATE 50 MG TAB 1 po bid METOPROLOL TARTRATE 51493808727 No Longer Active Ahmet Carbajal MD Active ABILIFY 15 MG ORAL TABS 1 tab daily ARIPIPRAZOLE 47608811267 No Longer Active Ahmet Carbajal MD Active PROZAC 20 MG ORAL CAPS 1 tab daily FLUOXETINE HCL 78760284658 No Longer Active Ahmet Carbajal MD Active AMBIEN 5 MG ORAL TABS 1 tab at bedtime ZOLPIDEM TARTRATE 33842394412 No Longer Active Ahmet Carbajal MD Active PREDNISONE 20 MG TAB 2 tabs daily for 4 days, 1 tab daily for 4 days, 1/2 tab daily for 4 days PREDNISONE 50155707431 No Longer Active Ahmet Carbajal MD Active KEFLEX 500 MG CAP 1 po TID x 10 days CEPHALEXIN 48873518190 No Longer Active Vishal Hui MD Active SAPHRIS 5 MG SUBL 1 po bid ASENAPINE MALEATE 01750157443 No Longer Active Luigi Martínez APRN Active LATUDA 80 MG TABS Take one by mouth daily LURASIDONE HCL 62783154353 No Longer Active Luigi Martínez APRN Active AMLODIPINE BESYLATE 5 MG TABS 1 tablet by mouth daily AMLODIPINE BESYLATE 95732057895 No Longer Active Luigi Martínez APRN Active AMITRIPTYLINE HCL 100 MG TAB one at hs AMITRIPTYLINE HCL 22781059558 No Longer Active Vishal Hui MD Active TRAZODONE HCL 100 MG TAB take 1 at bedtime TRAZODONE HCL 92075218266 No Longer Active Vishal Hui MD Active VYVANSE 40 MG CAPS 1 daily, LISDEXAMFETAMINE DIMESYLATE 69557021648 No Longer Active Vishal Hui MD Active IBUPROFEN 600 MG TAB 1 po TID PRN IBUPROFEN 74028359154 No Longer Active Vishal Hui MD Active PROZAC 20 MG CAP Take one by mouth daily FLUOXETINE HCL 06764680763 No Longer Active Vishal Hui MD Active BACTRIM DS 800-160 MG TABS 1 pill by mouth twice daily SULFAMETHOXAZOLE-TRIMETHOPRIM 19400283410 No Longer Active Sahara Rodriguez MD PhD Active DIFLUCAN 150 MG TAB 1 tablet by mouth daily FLUCONAZOLE 02113638049 No Longer Active Vishal Hui MD Active TIZANIDINE HCL 4 MG TABS 1 po q6hr PRN Muscle Spasm/Back Pain TIZANIDINE HCL 43914729718 Active TAMARA Casey Active CLINDAMYCIN HCL 150 MG CAPS 1 four times a day CLINDAMYCIN HCL 42640004422 No Longer Active Neeraj Collins MD Active KEFLEX 500 MG ORAL CAPS 1 cap QID by mouth CEPHALEXIN 49296677943 No Longer Active Neeraj Collins MD Active DIFLUCAN 150 MG TABS 1 pill every other day x 2 doses FLUCONAZOLE 52742732772 No Longer Active Sahara Rodriguez MD PhD Active MELATONIN 3 MG CAPS 2 po q hs MELATONIN 32026668808 No Longer Active Sahara Rodriugez MD PhD Active MULTIVITAMINS CAPS Take one by mouth daily MULTIPLE VITAMIN 62712022194 No Longer Active Sahara Rodriguez MD PhD Active BACTRIM DS 800-160 MG TAB 1 tab by mouth twice daily TRIMETHOPRIM-SULFAMETHOXAZOLE 38090544321 No Longer Active Sahara Rodriguez MD PhD Active [facility] PROBIOTIC ORAL CHEW 2 daily po PROBIOTIC PRODUCT 04275756726 No Longer Active Sahara Rodriguez MD PhD Active BACTRIM DS 800-160 MG TABS 1 po BID x 7 days SULFAMETHOXAZOLE-TRIMETHOPRIM 30490645987 No Longer Active Vishal Hui MD Active CHANTIX STARTING MONTH EARNEST 0.5 MG X 11 & 1 MG X 42 TABS 0.5mg daily for 3 days , then 0.5mg BID for 4 days, then 1mg BID VARENICLINE TARTRATE 99256678596 No Longer Active TAMARA Gray Active VERAPAMIL HCL CR 120 MG TAB CR 1 po bid VERAPAMIL HCL 16377284682 No Longer Active Vishal Hui MD Active METOPROLOL SUCCINATE 50 MG TB24 1 tablet by mouth daily METOPROLOL SUCCINATE 54197505501 No Longer Active Vishal Hui MD Active SAPHRIS 10 MG SUBL 1 tab po bid ASENAPINE MALEATE 83357643683 No Longer Active Vishal Hui MD Active LISINOPRIL 20 MG TABS 1 tab po qd LISINOPRIL 65972858168 No Longer Active Vishal Hui MD Active LATUDA 20 MG TABS Take one by mouth daily LURASIDONE HCL 62202908245 No Longer Active Vishal Hui MD Active TRAZODONE HCL 50 MG TABS 1/2 tab po qd prn for anxiety TRAZODONE HCL 01178686763 No Longer Active Vishal Hui MD Active OMEPRAZOLE 20 MG TBEC 1 po q a.m. 30min prior to first food intake OMEPRAZOLE 20328801642 Active TAMARA Casey Active RANITIDINE HCL 150 MG CAPS 1 twice a day RANITIDINE HCL 82331215569 Active Lynda Xiao STOCK TURNER Active LINZESS 290 MCG CAPS Take one by mouth daily LINACLOTIDE 02748889394 No Longer Active Vishal Hui MD Active SAPHRIS 5 MG SUBL 1 tab po qd ASENAPINE MALEATE 92463487445 No Longer Active Vishal Hui MD Active ZALEPLON 10 MG CAPS 1 cap po every other night ZALEPLON 31296996969 No Longer Active Vishal Hui MD Active LYRICA 50 MG CAPS 1 tab po TID PREGABALIN 86227572856 No Longer Active Vishal Hui MD Active LORATADINE 10 MG TABS 1 tab po qd LORATADINE 53847978273 No Longer Active Vishal Hui MD Active VERAPAMIL HCL ER 180 MG CR-TABS 1 tab po bid VERAPAMIL HCL 55847939625 No Longer Active Vishal Hui MD Active MIRALAX POWD 1 capfull once daily POLYETHYLENE GLYCOL 3350 75759189465 No Longer Active Vishal Hui MD Active PREDNISONE 20 MG TABS 1 tab po qd PREDNISONE 35706206654 No Longer Active Renzo Thornton DO Active LEVOFLOXACIN 500 MG TABS 1 tab po qd LEVOFLOXACIN 57018027462 No Longer Active Renzo Thornton DO Active BUSPIRONE HCL 15 MG TABS 1 tab po TID BUSPIRONE HCL 57231258544 No Longer Active Renzo Thornton DO Active BENZTROPINE MESYLATE 1 MG TABS 1 tab po qd BENZTROPINE MESYLATE 67860771573 No Longer Active Renzo Thornton DO Active ATENOLOL 25 MG TABS 1 tab po qd ATENOLOL 74378591162 No Longer Active Renzo Thornton DO Active ESCITALOPRAM OXALATE 20 MG TABS 1 tab po qd ESCITALOPRAM OXALATE 03222851127 No Longer Active Renzo Thornton DO Active ADVAIR DISKUS 250-50 MCG/DOSE AEPB 1 puff BID FLUTICASONE-SALMETEROL 78192173027 No Longer Active Renzo Thornton DO Active PREDNISONE 20 MG TAB 2 tabs daily for 3 days, 1 tab daily for 3 days, 1/2 tab daily for 2 days PREDNISONE 33768602009 No Longer Active Vishal Hui MD Active CEFDINIR 300 MG CAPS by mouth twice a day CEFDINIR 32850817152 No Longer Active Vishal Hui MD Active LANSOPRAZOLE 30 MG CPDR 1 cap po qd LANSOPRAZOLE 60473774792 No Longer Active Vishal Hui MD Active BACLOFEN 20 MG TABS 1 tab po tid BACLOFEN 46258786471 No Longer Active Vishal Hui MD Active ADVAIR DISKUS 250-50 MCG/DOSE AEPB 1 puff BID ADVAIR DISKUS 250-50 MCG/DOSE AEPB FLUTICASONE-SALMETEROL Inactive ESCITALOPRAM OXALATE 20 MG TABS 1 tab po qd ESCITALOPRAM OXALATE 20 MG TABS 027481 ESCITALOPRAM OXALATE Inactive ATENOLOL 25 MG TABS 1 tab po qd ATENOLOL 25 MG TABS 382074 ATENOLOL Inactive BENZTROPINE MESYLATE 1 MG TABS 1 tab po qd BENZTROPINE MESYLATE 1 MG TABS 838648 BENZTROPINE MESYLATE Inactive BUSPIRONE HCL 15 MG TABS 1 tab po TID BUSPIRONE HCL 15 MG TABS 816917 BUSPIRONE HCL Inactive LEVOFLOXACIN 500 MG TABS 1 tab po qd LEVOFLOXACIN 500 MG TABS 074568 LEVOFLOXACIN Inactive PREDNISONE 20 MG TABS 1 tab po qd PREDNISONE 20 MG TABS 472774 PREDNISONE Inactive MIRALAX POWD 1 capfull once daily MIRALAX [facility] 133653 POLYETHYLENE GLYCOL 3350 Inactive VERAPAMIL HCL ER 180 MG CR-TABS 1 tab po bid VERAPAMIL HCL ER 180 MG CR-TABS VERAPAMIL HCL Inactive LORATADINE 10 MG TABS 1 tab po qd LORATADINE 10 MG TABS 917617 LORATADINE Inactive LYRICA 50 MG CAPS 1 tab po TID LYRICA 50 MG CAPS PREGABALIN Inactive ZALEPLON 10 MG CAPS 1 cap po every other night ZALEPLON 10 MG CAPS 153050 ZALEPLON Inactive SAPHRIS 5 MG SUBL 1 tab po qd SAPHRIS 5 MG SUBL ASENAPINE MALEATE Inactive TRAZODONE HCL 50 MG TABS 1/2 tab po qd prn for anxiety TRAZODONE HCL 50 MG TABS 672711 TRAZODONE HCL Inactive LATUDA 20 MG TABS Take one by mouth daily LATUDA 20 MG TABS LURASIDONE HCL Inactive LISINOPRIL 20 MG TABS 1 tab po qd LISINOPRIL 20 MG TABS 368870 LISINOPRIL Inactive SAPHRIS 10 MG SUBL 1 [...] days, then 1mg BID CHANTIX STARTING MONTH EANREST 0.5 MG X 11 & 1 MG X 42 TABS VARENICLINE TARTRATE Inactive [facility] PROBIOTIC ORAL CHEW 2 daily po [facility] PROBIOTIC ORAL CHEW PROBIOTIC PRODUCT Inactive BACTRIM DS 800-160 MG TAB 1 tab by mouth twice daily BACTRIM DS 800-160 MG TAB 912355 TRIMETHOPRIM-SULFAMETHOXAZOLE Inactive MULTIVITAMINS CAPS Take one by mouth daily MULTIVITAMINS CAPS MULTIPLE VITAMIN Inactive MELATONIN 3 MG CAPS 2 po q hs MELATONIN 3 MG CAPS 837413 MELATONIN Inactive KEFLEX 500 MG ORAL CAPS 1 cap QID by mouth KEFLEX 500 MG ORAL CAPS 804970 CEPHALEXIN Inactive CLINDAMYCIN HCL 150 MG CAPS 1 four times a day CLINDAMYCIN HCL 150 MG CAPS 615461 CLINDAMYCIN HCL Inactive DIFLUCAN 150 MG TAB 1 tablet by mouth daily DIFLUCAN 150 MG TAB 100213 FLUCONAZOLE Inactive PROZAC 20 MG CAP Take one by mouth daily PROZAC 20 MG CAP 150691 FLUOXETINE HCL Inactive IBUPROFEN 600 MG TAB 1 po TID PRN IBUPROFEN 600 MG TAB 771910 IBUPROFEN Inactive VYVANSE 40 MG CAPS 1 daily, VYVANSE 40 MG CAPS LISDEXAMFETAMINE DIMESYLATE Inactive TRAZODONE HCL 100 MG TAB take 1 at bedtime TRAZODONE HCL 100 MG TAB 346908 TRAZODONE HCL Inactive AMITRIPTYLINE HCL 100 MG TAB one at hs AMITRIPTYLINE HCL 100 MG TAB 595669 AMITRIPTYLINE HCL Inactive AMLODIPINE BESYLATE 5 MG TABS 1 tablet by mouth daily AMLODIPINE BESYLATE 5 MG TABS 847774 AMLODIPINE BESYLATE Inactive LATUDA 80 MG TABS Take one by mouth daily LATUDA 80 MG TABS LURASIDONE HCL Inactive SAPHRIS 5 MG SUBL 1 po bid SAPHRIS 5 MG SUBL ASENAPINE MALEATE Inactive PREDNISONE 20 MG TAB 2 tabs daily for 4 days, 1 tab daily for 4 days, 1/2 tab daily for 4 days PREDNISONE 20 MG TAB 840170 PREDNISONE Inactive AMBIEN 5 MG ORAL TABS 1 tab at bedtime AMBIEN 5 MG ORAL TABS 977430 ZOLPIDEM TARTRATE Inactive PROZAC 20 MG ORAL CAPS 1 tab daily PROZAC 20 MG ORAL CAPS 277629 FLUOXETINE HCL Inactive ABILIFY 15 MG ORAL TABS 1 tab daily ABILIFY 15 MG ORAL TABS 998283 ARIPIPRAZOLE Inactive METOPROLOL TARTRATE 50 MG TAB 1 po bid METOPROLOL TARTRATE 50 MG TAB 183750 METOPROLOL TARTRATE Inactive TRAMADOL HCL 50 MG TABS 1-2 po TID PRN Pain TRAMADOL HCL 50 MG TABS 968500 TRAMADOL HCL Inactive PIROXICAM 20 MG CAPS 1 cap po qd PRN Pain PIROXICAM 20 MG CAPS 256824 PIROXICAM Inactive MINIPRESS 2 MG CAPS 4 cap po at night MINIPRESS 2 MG CAPS 733798 PRAZOSIN HCL Inactive MIRALAX PACK 1 po qd PRN Constipation MIRALAX PACK 204857 POLYETHYLENE GLYCOL 3350 Inactive METOPROLOL TARTRATE 25 MG ORAL TABS 1/2 tablet twice daily for heart rate and blood pressure METOPROLOL TARTRATE 25 MG ORAL TABS 968339 METOPROLOL TARTRATE Inactive VALIUM 5 MG TAB Take 1-2 tablets daily VALIUM 5 MG TAB 211009 DIAZEPAM Inactive FLAGYL 500 MG TAB 1 tablet by mouth bid FLAGYL 500 MG TAB 535674 METRONIDAZOLE Inactive DICLOFENAC POTASSIUM TABS Take 1 tablet twice a day (pt. is not sure of the dose.) DICLOFENAC POTASSIUM TABS DICLOFENAC POTASSIUM TABS Inactive ZITHROMAX Z-EARNEST 250 MG TABS 2 today and then 1 daily for 4 days ZITHROMAX Z-EARNEST 250 MG TABS 6431244 AZITHROMYCIN Inactive PREDNISONE 20 MG TABS 2 daily for 5 days then 1 daily for 5 days PREDNISONE 20 MG TABS 894534 PREDNISONE Inactive PROAIR HFA 108 (90 BASE) MCG/ACT AERS 2 puffs four times a day as needed 2015 PROAIR HFA 108 (90 BASE) MCG/ACT AERS ALBUTEROL SULFATE Inactive HYDROCODONE-ACETAMINOPHEN 5-325 MG TABS 1 to 2 four times a day as needed for pain use until can be seen by specialist HYDROCODONE- ACETAMINOPHEN 5-325 MG TABS 103488 HYDROCODONE-ACETAMINOPHEN Inactive TESSALON PERLES 100 MG CAP 1 to 2 tablets by mouth 3 times daily as needed for cough TESSALON PERLES 100 MG CAP 308992 BENZONATATE Inactive CHANTIX STARTING MONTH EARNEST 0.5 [...] Pain 2015 DICLOFENAC SODIUM 50 MG TBEC 947301 DICLOFENAC SODIUM Inactive TOPAMAX 50 MG ORAL TABS 1 tab twice daily TOPAMAX 50 MG ORAL TABS 308360 TOPIRAMATE Inactive VIIBRYD 10 MG ORAL TABS Take 1 tablet once a day VIIBRYD 10 MG ORAL TABS VILAZODONE HCL Inactive LEVOFLOXACIN 500 MG ORAL TABS po daily LEVOFLOXACIN 500 MG ORAL TABS 748916 LEVOFLOXACIN Inactive METHYLPREDNISOLONE 4 MG ORAL TABS po daily METHYLPREDNISOLONE 4 MG ORAL TABS 940998 METHYLPREDNISOLONE Inactive OXYCODONE HCL ER 10 MG ORAL T12A 1/2 tab by mouth every 4 hours prn OXYCODONE HCL ER 10 MG ORAL T12A OXYCODONE HCL Inactive FLAGYL 500 MG TAB 1 tablet by mouth bid FLAGYL 500 MG TAB 548097 METRONIDAZOLE Inactive MONISTAT 7 COMBO PACK WOODROW 100 & 2 MG-% (9GM) VAG KIT 1 applicatorful per vagina q pm x 7 MONISTAT 7 COMBO PACK WOODROW 100 & 2 MG-% (9GM) VAG KIT MICONAZOLE NITRATE Inactive BACTRIM DS 800-160 MG TABS 1 twice a day BACTRIM DS 800-160 MG TABS 892711 SULFAMETHOXAZOLE-TRIMETHOPRIM Inactive TRAMADOL HCL 50 MG TABS 1/2-1 tab TID PRN TRAMADOL HCL 50 MG TABS 663697 TRAMADOL HCL Inactive ABILIFY MAINTENA 400 MG IM SUSR 400mg injection every 26 days ABILIFY MAINTENA 400 MG IM SUSR ARIPIPRAZOLE Inactive KLONOPIN 1 MG ORAL TABS 1 tab po TID KLONOPIN 1 MG ORAL TABS 553242 CLONAZEPAM Inactive ADVAIR DISKUS 250-50 MCG/DOSE INH AEPB 1 puff twice a day for asthma ADVAIR DISKUS 250-50 MCG/DOSE INH AEPB FLUTICASONE- SALMETEROL Inactive BENADRYL 25 MG CAP 4 po at bedtime for insomnia BENADRYL 25 MG CAP DIPHENHYDRAMINE HCL Inactive PREDNISONE 20 MG TABS 2 daily for 5 days then 1 daily for 5 days PREDNISONE 20 MG TABS 468118 PREDNISONE Inactive HYDROCODONE-ACETAMINOPHEN 5-325 MG ORAL TABS 1 tab two times a day HYDROCODONE-ACETAMINOPHEN 5-325 MG ORAL TABS 326164 HYDROCODONE-ACETAMINOPHEN Inactive ZITHROMAX Z-EARNEST 250 MG TABS 2 today and then 1 daily for 4 days ZITHROMAX Z-EARNEST 250 MG TABS 8620060 AZITHROMYCIN Inactive GUAIFENESIN-CODEINE 100-10 MG/5ML SYRP 5ml every 4 to 6 hours as needed for cough GUAIFENESIN-CODEINE 100-10 MG/5ML SYRP 191282 GUAIFENESIN-CODEINE Inactive HALOPERIDOL 10 MG ORAL TABS 1 tab q.d HALOPERIDOL 10 MG ORAL TABS 999899 HALOPERIDOL Inactive ASPIRIN 325 MG ORAL TABS 1 tab q.d ASPIRIN 325 MG ORAL TABS 962895 ASPIRIN Inactive FLUTICASONE PROPIONATE 50 MCG/ACT SUSP 2 sprays each nostril daily before bed. FLUTICASONE PROPIONATE 50 MCG/ACT SUSP 2584213 FLUTICASONE PROPIONATE Inactive ZOFRAN 4 MG TABS 1 po q6hr PRN Nausea ZOFRAN 4 MG TABS 520144 ONDANSETRON HCL Inactive KEFLEX 500 MG CAP 1 po qid KEFLEX 500 MG CAP 951065 CEPHALEXIN Inactive ACETAMINOPHEN-CODEINE 120-12 MG/5ML SOLN 5 ml by mouth every 4-6 hours if needed for cough ACETAMINOPHEN-CODEINE 120-12 MG/5ML SOLN 703953 ACETAMINOPHEN-CODEINE Inactive PREDNISONE 20 MG TAB 1 tablet daily x 4 days PREDNISONE 20 MG TAB 836917 PREDNISONE Inactive TROPICAMIDE 0.5 % OPHTH SOLN 1 drop PRN eye spasms TROPICAMIDE 0.5 % OPHTH SOLN 149773 TROPICAMIDE Inactive LEVAQUIN 500 MG TABS 1 daily for infection LEVAQUIN 500 MG TABS 292516 LEVOFLOXACIN Inactive PREDNISONE 10 MG TABS 2 daily for 5 days then 1 daily for 5 days PREDNISONE 10 MG TABS 965535 PREDNISONE Inactive EQ NICOTINE 21 MG/24HR TRANS [...] for cough TESSALON PERLES 100 MG CAPS 286713 BENZONATATE Inactive AMITIZA 8 MCG ORAL CAPS [...] twice a day MUPIROCIN 2 % OINT 876796 MUPIROCIN Inactive CEFDINIR 300 MG CAPS by mouth twice a day CEFDINIR 300 MG CAPS 156562 CEFDINIR Inactive PREDNISONE 20 MG TAB 2 tabs daily for 3 days, 1 tab daily for 3 days, 1/2 tab daily for 2 days PREDNISONE 20 MG TAB 889578 PREDNISONE Inactive BACTRIM DS 800-160 MG TABS [...] x 10 days KEFLEX 500 MG CAP 362085 CEPHALEXIN Inactive Advance Directives Directive Description Start [...] % 11.0-15.0 platelet count 443 THOUSAND/UL 10*3/mm3 290-690 3655/03/01 mean platelet volume 8.2 fL 7.5-12.5 leukocyte [...] % 11.0-15.0 platelet count 89 THOUSAND/UL 10*3/mm3 [phone]/04/12 mean platelet volume 8.4 fL 7.5-12.5 Lab [...] 369 10^3/MM^3 10*3/mm3 [phone] Lab Report: Chlamydia/GC APTIMA/98513 - Lab chlamydia DNA probe NOT DETECTED NOT DETECTED Lab Report: Chlamydia/GC APTIMA/12882 - Microbiology Neisseria gonorrhoeae DNA probe NOT DETECTED NOT DETECTED Lab Report: Chlamydia/GC APTIMA/54311, Urinalysis, Complete, with Reflex ... - Lab chlamydia DNA probe NOT DETECTED NOT DETECTED Lab Report: Chlamydia/GC APTIMA/82473, Urinalysis, Complete, with Reflex ... - Microbiology Neisseria gonorrhoeae DNA probe NOT DETECTED NOT DETECTED Lab Report: Chlamydia/GC APTIMA/02107, Urinalysis, Complete, with Reflex ... - Urinalysis microalbumin/total urine volume 2 mg/L Units converted. See lab report for original value. microalbumin/creatinine ratio, urine 9 MCG/MG CREAT mg/L <30 Lab Report: Comp. Metabolic Panel - Chemistry sodium, serum 140 mmol/L [phone]/08/08 carbon dioxide, venous blood 33.7 mmol/L 21.0-32.0 potassium, serum 5.0 mmol/L 3.5-5.2 chloride, serum 103 mmol/L 98-107 blood glucose 80 mg/dL 65-110 urea nitrogen, blood 13 mg/dL 7-18 creatinine, serum 0.88 mg/dL 0.55-1.30 alanine aminotransferase (SGPT), serum 54 U/L 12-78 aspartate aminotransferase (SGOT), serum 29 U/L 15-37 calcium, serum 9.7 mg/dL 8.5-10.1 bilirubin, serum, total 0.30 mg/dL 0.00-1.00 sodium, serum 140 mmol/L 036-571 6750/06/28 carbon dioxide, venous blood 23.8 mmol/L 21.0-32.0 [...] 5.0-8.5 Encounters Code Encounter Date Provider Facility CPT-11274 Level 3 Est. [facility] 15:55:[facility] 4 Est[facility] Patient 10:49:34 CDT Suzan [facility] CPT-10653 Level 3 Est. Patient 10:00:25 CDT Suzan [facility] CPT-73531 Level 3 Est. Patient 10:29:30 CDT Suzan Boo [facility] CPT-14767 Level 3 Est. Patient 11:04:38 CDT Renzo Thornton [facility] CPT-39233 Level 3 Est. Patient 11:15:58 USER SUPPORT ANALYST SUPERVISOR Renzo Thornton [facility] CPT-34929 Level 3 Est. Patient 15:28:23 USER SUPPORT ANALYST SUPERVISOR Suzan Boo [facility] CPT-92617 Level 4 Est. Patient 10:20:54 USER SUPPORT ANALYST SUPERVISOR [facility] Level 3 Est. Patient 11:47:37 USER SUPPORT ANALYST SUPERVISOR Ahmet Carbajal MD [facility] CPT-38373 Level 3 Est. Patient 10:40:11 USER SUPPORT ANALYST SUPERVISOR Ahmet Carbajal MD [facility] CPT-31715 Level 3 Est. Patient 15:07:06 USER SUPPORT ANALYST SUPERVISOR Neeraj Collins MD [facility] CPT-56002 Level 4 Est. Patient 14:45:00 USER SUPPORT ANALYST SUPERVISOR Ahmet Carbajal MD [facility] CPT-26919 Level 3 Est. Patient 13:59:59 CDT Luigi Martínez [facility] CPT-05650 Level 3 Est. Patient 18:18:53 CDT Neeraj Collins MD [facility] CPT-10722 Level 3 Est. Patient 15:50:44 CDT Vishal Hui MD [facility] CPT-03002 Level 3 Est. Patient 11:36:17 CDT Ahmet Carbajal MD [facility] CPT-97178 Level 3 Est. Patient 13:29:16 CDT Vishal Hui MD [facility] CPT-92307 Level 3 Est. Patient 14:27:52 CDT Neeraj Collins MD [facility] CPT-79319 Level 3 Est. Patient 08:56:03 CDT Luigi Martínez [facility] CPT-06199 Level 4 Est. Patient 12:11:48 CDT Fabiola Johnson [facility] CPT-04704 Level 3 New Patient 16:53:37 CDT Albert Caldera MD [facility] CPT-61312 Level 3 Est. Patient 11:25:49 CDT Renzo Thornton DO [facility] CPT-64336 Level 3 Est. Patient 15:22:01 CDT Ahmet Carbajal MD [facility] CPT-49583 Level 4 Est. Patient 09:00:51 USER SUPPORT ANALYST SUPERVISOR Vishal Hui MD [facility] CPT-93713 Level 3 Est. Patient 11:37:33 USER SUPPORT ANALYST SUPERVISOR Vishal Hui MD [facility] CPT-69764 Level 3 Est. Patient 08:41:09 USER SUPPORT ANALYST SUPERVISOR Vishal Hui MD [facility] CPT-36432 Level 4 Est. Patient 10:19:35 USER SUPPORT ANALYST SUPERVISOR Vishal Hui MD [facility] CPT-65568 Level 3 Est. Patient 13:35:45 CDT Vishal Hui MD [facility] CPT-29764 Level 4 Est. Patient 10:08:37 CDT Vishal Hui MD [facility] CPT-48526 Level 3 Est. Patient 11:22:10 CDT Vishal Hui MD [facility] CPT-55057 Level 3 Est. Patient 11:03:32 CDT Sahara Rodriguez MD [facility]-63572 Level 3 Est. Patient 09:41:35 CDT Vishal Hui MD [facility] CPT-19948 Level 3 Est. Patient 12:00:41 CDT Neeraj Collins MD [facility] CPT-60086 Level 3 Est. Patient 09:16:24 CDT Vishal Hui MD [facility] CPT-32414 Level 4 Est. Patient 13:59:09 CDT Neeraj Collins MD [facility] CPT-94186 Level 3 Est. Patient 15:19:43 CDT Renzo Thornton DO [facility] CPT-99820 Level 3 Est. Patient 18:10:26 CDT Sahara Rodriguez MD [facility] CPT-81441 Level 3 Est. Patient 14:49:50 CDT Vishal Hui MD [facility] CPT-77989 Level 4 Est. Patient 18:41:46 CDT Neeraj Collins MD [facility] CPT-54445 Level 4 Est. Patient 09:18:38 USER SUPPORT ANALYST SUPERVISOR Vishal Hui MD [facility] CPT-20261 Level 3 Est. Patient 14:43:55 USER SUPPORT ANALYST SUPERVISOR Vishal Hui MD [facility] CPT-17435 Level 3 Est. Patient 15:26:33 USER SUPPORT ANALYST SUPERVISOR Sahara Rodriguez MD PhD [facility] CPT-00537 Level 3 Est. Patient 10:32:14 USER SUPPORT ANALYST SUPERVISOR Vishal Hui MD [facility] CPT-29561 Level 3 Est. Patient 15:12:52 USER SUPPORT ANALYST SUPERVISOR Vishal Hui MD [facility] CPT-34876 Level 4 Est. Patient 09:19:27 CDT Vishal Hui MD [facility] CPT-83267 Level 3 Est. Patient 15:53:00 CDT Renzo Barajas [facility] CPT-18810 Level 3 Est. Patient 15:50:30 CDT Renzo Thornton [facility] CPT-76701 Level 3 Est. Patient 16:55:24 CDT Vishal Hui MD [facility] Procedures Code Procedure Name Date Entry Date Standard Description CPT-13525 EKG Trac and Interp - XRAY USE ONLY 15:59:30 CDT 09/13 CPT-44647 Chest 1V Frontal - XRAY USE ONLY 15:59:30 CDT CPT-44675 Venipuncture Draw Fee 15:44:02 CDT CPT-35664 Venipuncture Draw Fee 08:41:12 CDT CPT-47506 Abd compl w upright - XRAY USE ONLY 10:27:59 CDT 06/28 CPT-67333 Smoking Cessation counseling 11:15:58 USER SUPPORT ANALYST SUPERVISOR CPT-G0439 [facility] Annual Wellness Exam 09:30:58 USER SUPPORT ANALYST SUPERVISOR CPT-58021 TSH - LAB USE ONLY 08:50:26 USER SUPPORT ANALYST SUPERVISOR CPT-60743 CBC - LAB USE ONLY 08:50:26 USER SUPPORT ANALYST SUPERVISOR CPT-04187 Venipuncture Draw Fee 08:50:26 USER SUPPORT ANALYST SUPERVISOR CPT-38895 Abx/Therapy Injection 17:34:30 USER SUPPORT ANALYST SUPERVISOR CPT-65176 Nexplanon Removal with Reinsertion 14:09:32 CDT CPT-J7307 Nexplanon (Implant) 14:09:32 CDT CPT-OV Office Visit 14:09:32 CDT CPT-87875 UA w micro - LAB USE ONLY 16:21:13 CDT CPT-31441 Wet Mount - LAB USE ONLY 16:21:13 CDT CPT-46026 First Vx - Ix admin for Medicare patients 14:37:47 CDT CPT-49392 Fluzone Preservative Free Intramuscular Suspension 14:37 :47 CDT CPT-61458 Abx/Therapy Injection 13:54:22 CDT CPT-30860 Abx/Therapy Injection 08:47:09 CDT CPT-18863 Abx/Therapy Injection 13:29:56 CDT CPT-71834 Abx/Therapy Injection 08:36:16 CDT CPT-69078 Wet Mount - LAB USE ONLY 17:44:58 CDT CPT-76125 UA w micro - LAB USE ONLY 17:44:58 CDT CPT-33372 CMP - LAB USE ONLY 17:44:58 CDT CPT-83179 Venipuncture Draw Fee 17:44:58 CDT CPT-18745 Cervical Min 4V - XRAY USE ONLY 09:01:40 CDT CPT-35241 Chest 2V Frontal and Lat - XRAY USE ONLY 11:06:31 CDT CPT-35935 EKG Trac and Interp - XRAY USE ONLY 11:31:43 CDT 08/26 CPT-J3420 Vitamin B12 1000mcg (Cyanocobalamin) 08:10:26 USER SUPPORT ANALYST SUPERVISOR 04/12 CPT-96215 Abx/Therapy Injection 08:10:26 USER SUPPORT ANALYST SUPERVISOR CPT-G0438 Initial Annual Wellness Exam 19:01:01 USER SUPPORT ANALYST SUPERVISOR CPT-J3420 Vitamin B12 1000mcg (Cyanocobalamin) 16:57:46 CDT 08/14 CPT-01519 Recombivax HB Injection Suspension 5 MCG/0.5ML 08:37:50 USER SUPPORT ANALYST SUPERVISOR CPT-82842 Immunization Single Admin 08:37:50 USER SUPPORT ANALYST SUPERVISOR CPT-J3420 Vitamin B12 1000mcg (Cyanocobalamin) 08:32:16 USER SUPPORT ANALYST SUPERVISOR 03/11 CPT-42256 Abx/Therapy Injection 08:32:16 USER SUPPORT ANALYST SUPERVISOR CPT-65536 Chest 2V Frontal and Lat 11:46:38 USER SUPPORT ANALYST SUPERVISOR CPT-63151 Venipuncture Draw Fee 09:12:45 USER SUPPORT ANALYST SUPERVISOR CPT-J3420 Vitamin B12 1000mcg (Cyanocobalamin) 08:50:15 USER SUPPORT ANALYST SUPERVISOR 02/08 CPT-78456 Abx/Therapy Injection 08:50:15 USER SUPPORT ANALYST SUPERVISOR CPT-Cryo Cryotherapy 10:19:35 USER SUPPORT ANALYST SUPERVISOR CPT-000 Give Appropriate Flu Vaccine 09:22:16 CDT CPT-J3420 Vitamin B12 1000mcg (Cyanocobalamin) 19:08:57 CDT 01/11 CPT-04419 Abx/Therapy Injection 19:08:57 CDT CPT-J3420 Vitamin B12 1000mcg (Cyanocobalamin) 08:19:08 CDT 12/11 CPT-25243 Abx/Therapy Injection 08:19:08 CDT CPT-J3420 Vitamin B12 1000mcg (Cyanocobalamin) 14:48:00 CDT 11/09 CPT-20269 Abx/Therapy Injection 14:47:59 CDT CPT-J3420 Vitamin B12 1000mcg (Cyanocobalamin) 08:34:04 CDT 10/09 CPT-08088 Abx/Therapy Injection 08:34:04 CDT CPT-J3420 Vitamin B12 1000mcg (Cyanocobalamin) 09:18:52 CDT 09/11 CPT-14853 Abx/Therapy Injection 09:18:52 CDT CPT-J3420 Vitamin B12 1000mcg (Cyanocobalamin) 08:35:44 CDT 09/04 CPT-20835 Abx/Therapy Injection 08:35:44 CDT CPT-86308 Immunization Single Admin 11:07:16 CDT CPT-52064 Hepatitis B adult IM 11:07:16 CDT CPT-J3420 Vitamin B12 1000mcg (Cyanocobalamin) 11:00:49 CDT 08/28 CPT-J1040 Depo Medrol 80 mg (Methyl Prednisolone Acetate) 11:00: 49 CDT CPT-22775 Abx/Therapy Injection 11:00:49 CDT CPT-J1040 Depo Medrol 80 mg (Methyl Prednisolone Acetate) 09:16: 23 CDT CPT-J3420 Vitamin B12 1000mcg (Cyanocobalamin) 08:27:05 CDT 08/20 CPT-67779 Abx/Therapy Injection 08:27:05 CDT CPT-08019 Recombivax HB Injection Suspension 5 MCG/0.5ML 10:00:41 CDT CPT-18214 Administration single or combination vaccine inc oral 10 :00:41 CDT CPT-41320 Sono transvag pelvis non OB uterus ovaries cervix 16:36: 57 CDT CPT-83120 LS spine comp w obliq 09:50:55 USER SUPPORT ANALYST SUPERVISOR CPT-93668 Abd compl w upright 09:50:55 USER SUPPORT ANALYST SUPERVISOR CPT-J1100 Decadron 4mg (Dexamethasone) 15:51:24 USER SUPPORT ANALYST SUPERVISOR CPT-J1030 Depo Medrol 40 mg (Methyl Prednisolone Acetate) 15:51: 24 USER SUPPORT ANALYST SUPERVISOR CPT-52288 Abx/Therapy Injection 15:51:24 USER SUPPORT ANALYST SUPERVISOR CPT-J1100 Decadron 4mg (Dexamethasone) 15:26:33 USER SUPPORT ANALYST SUPERVISOR CPT-J1030 Depo Medrol 40 mg (Methyl Prednisolone Acetate) 15:26: 33 USER SUPPORT ANALYST SUPERVISOR CPT-79833 Sono retroperitoneal complete kidneys and bladder 17:15: 30 CDT CPT-06399 Abd compl w upright 16:09:25 CDT CPT-J1100 Decadron 8mg (Dexamethasone) 17:07:57 CDT CPT-19426 Abx/Therapy Injection 17:07:57 CDT CPT-J1100 Decadron 8mg (Dexamethasone) 16:55:24 CDT CPT-35780 Chest 2V Frontal and Lat 16:32:44 CDT
--- OUTSIDE RECORDS SUMMARY | 2016-11-04 16:47 | XMS REPORT | Clinical Summary ---
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 Juliet Kimbrough VOCATIONAL INSTRUCTOR Dependence on other enabling machines and devices [...] Shortness of breath 786.05 Active Fabiola Johnson VOCATIONAL INSTRUCTOR Shortness of breath Nocturnal hypoxia 799.02 Active Fabiola Johnson VOCATIONAL INSTRUCTOR Hypoxemia Neck pain 723.1 Active Luigi Martínez VOCATIONAL INSTRUCTOR Cervicalgia Vaginal discharge 623.5 Active Neeraj Collins [...] TABS take as directed 2015 VARENICLINE TARTRATE 38301397197 Active Ahmet Carbajal MD Active CHANTIX 1 MG TABS 1 twice a day to help quit smoking VARENICLINE TARTRATE 17352842621 Active Ahmet Carbajal MD Active HYDROCODONE-ACETAMINOPHEN 5-325 MG TABS 1 to 2 four times a day as needed for pain use until can be seen by specialist HYDROCODONE- ACETAMINOPHEN 62836521144 No Longer Active Vishal Hui MD Active PROAIR HFA 108 (90 BASE) MCG/ACT AERS 2 puffs four times a day as needed 2015 ALBUTEROL SULFATE 93625864538 No Longer Active Vishal Hui MD Active PREDNISONE 20 MG TABS 2 daily for 5 days then 1 daily for 5 days PREDNISONE 40935185989 No Longer Active Vishal Hui MD Active ZITHROMAX Z-EARNEST 250 MG TABS 2 today and then 1 daily for 4 days AZITHROMYCIN 76838744691 No Longer Active Vishal Hui MD Active DICLOFENAC SODIUM 50 MG TBEC 1 tablet by mouth four times daily PRN Pain 2015 DICLOFENAC SODIUM 26636515016 Active Vishal Hui MD Active DICLOFENAC POTASSIUM TABS Take 1 tablet twice a day (pt. is not sure of the dose.) DICLOFENAC POTASSIUM TABS 03683140290 No Longer Active Vishal Hui MD Active VERAPAMIL HCL ER 120 MG ORAL CR-TABS Take 1 tablet by mouth twice a day. VERAPAMIL HCL 72251273764 Active Vishal Hui MD Active FLAGYL 500 MG TAB 1 tablet by mouth bid METRONIDAZOLE 59124699908 No Longer Active Vishal Hui MD Active ABILIFY MAINTENA 400 MG IM SUSR 400mg injection every 28 days ARIPIPRAZOLE 12179951163 Active Silvia Ervinum DIGITAL COMMUNITY MANAGER Active FLUTICASONE PROPIONATE 50 MCG/ACT SUSP 2 sprays each nostril daily before bed. FLUTICASONE PROPIONATE 99922036969 Active Fabiola Johnson APRN Active ADZENYS XR-ODT 6.3 MG ORAL TBED 1 tab po daily for ADHD AMPHETAMINE 23354671454 Active Fabiola Johnson APRN Active BENADRYL 25 MG CAP 4 po at bedtime for insomnia DIPHENHYDRAMINE HCL 77846556549 Active Fabiola Johnson APRN Active KLONOPIN 1 MG ORAL TABS 1 tab po TID CLONAZEPAM 05306958271 Active Fabiola Johnson APRN Active VALIUM 5 MG TAB Take 1-2 tablets daily DIAZEPAM 30443874189 No Longer Active Fabiola Johnson APRN Active METOPROLOL TARTRATE 25 MG ORAL TABS 1/2 tablet twice daily for heart rate and blood pressure METOPROLOL TARTRATE 69729951057 No Longer Active Fabiola Johnson APRN Active MIRALAX ORAL POWD 17GMS DAILY IN WATER POLYETHYLENE GLYCOL 3350 29233774865 Active Vishal Hui MD Active VIIBRYD 10 MG ORAL TABS Take 1 tablet once a day VILAZODONE HCL 32396259076 Active Ahmet Carbajal MD Active MIRALAX PACK 1 po qd PRN Constipation POLYETHYLENE GLYCOL 3350 85303709125 No Longer Active Ahmet Carbajal MD Active MINIPRESS 2 MG CAPS 4 cap po at night PRAZOSIN HCL 65399230333 No Longer Active Ahmet Carbajal MD Active PIROXICAM 20 MG CAPS 1 cap po qd PRN Pain PIROXICAM 50005776794 No Longer Active Ahmet Carbajal MD Active TRAMADOL HCL 50 MG TABS 1-2 po TID PRN Pain TRAMADOL HCL 81286487315 No Longer Active Ahmet Carbajal MD Active METOPROLOL TARTRATE 50 MG TAB 1 po bid METOPROLOL TARTRATE 35484968347 No Longer Active Ahmet Carbajal MD Active ABILIFY 15 MG ORAL TABS 1 tab daily ARIPIPRAZOLE 94469682073 No Longer Active Ahmet Carbajal MD Active PROZAC 20 MG ORAL CAPS 1 tab daily FLUOXETINE HCL 47785122416 No Longer Active Ahmet Carbajal MD Active AMBIEN 5 MG ORAL TABS 1 tab at bedtime ZOLPIDEM TARTRATE 53061909130 No Longer Active Ahmet Carbajal MD Active PREDNISONE 20 MG TAB 2 tabs daily for 4 days, 1 tab daily for 4 days, 1/2 tab daily for 4 days PREDNISONE 75267133811 No Longer Active Ahmet Carbajal MD Active KEFLEX 500 MG CAP 1 po TID x 10 days CEPHALEXIN 28276640152 No Longer Active Vishal Hui MD Active IMITREX 50 MG ORAL TABS 1/2 tab every 6 hours prn SUMATRIPTAN SUCCINATE 29063352651 Active Jillina Fralebron NORIEGA Active TOPAMAX 50 MG ORAL TABS 1 tab twice daily TOPIRAMATE 70870333138 Active Vishal Hui MD Active SAPHRIS 5 MG SUBL 1 po bid ASENAPINE MALEATE 68219349070 No Longer Active Luigi Martínez APRN Active LATUDA 80 MG TABS Take one by mouth daily LURASIDONE HCL 61828938065 No Longer Active Luigi Martínez APRN Active AMLODIPINE BESYLATE 5 MG TABS 1 tablet by mouth daily AMLODIPINE BESYLATE 49250642936 No Longer Active Luigi Martínez APRN Active AMITRIPTYLINE HCL 100 MG TAB one at hs AMITRIPTYLINE HCL 18669517496 No Longer Active Vishal Hui MD Active TRAZODONE HCL 100 MG TAB take 1 at bedtime TRAZODONE HCL 96282409822 No Longer Active Vishal Hui MD Active VYVANSE 40 MG CAPS 1 daily, LISDEXAMFETAMINE DIMESYLATE 01315595854 No Longer Active Vishal Hui MD Active IBUPROFEN 600 MG TAB 1 po TID PRN IBUPROFEN 66241587280 No Longer Active Vishal Hui MD Active PROZAC 20 MG CAP Take one by mouth daily FLUOXETINE HCL 59461217088 No Longer Active Vishal Hui MD Active ZOFRAN 4 MG TABS 1 po q6hr PRN Nausea ONDANSETRON HCL Active Vishal Hui MD Active BACTRIM DS 800-160 MG TABS 1 pill by mouth twice daily SULFAMETHOXAZOLE-TRIMETHOPRIM 49911761020 No Longer Active Sahara Rodriguez MD PhD Active DIFLUCAN 150 MG TAB 1 tablet by mouth daily FLUCONAZOLE 44986602152 No Longer Active Vishal Hui MD Active TIZANIDINE HCL 4 MG TABS 1 po q6hr PRN Muscle Spasm/Back Pain TIZANIDINE HCL 38758910421 Active Vishal Hui MD Active CLINDAMYCIN HCL 150 MG CAPS 1 four times a day CLINDAMYCIN HCL 25095951136 No Longer Active Neeraj Collins MD Active KEFLEX 500 MG ORAL CAPS 1 cap QID by mouth CEPHALEXIN 36526883045 No Longer Active Neeraj Collins MD Active DIFLUCAN 150 MG TABS 1 pill every other day x 2 doses FLUCONAZOLE 30840894715 No Longer Active Sahara Rodriguez MD PhD Active MELATONIN 3 MG CAPS 2 po q hs MELATONIN 31316457527 No Longer Active Sahara Rodriguez MD PhD Active MULTIVITAMINS CAPS Take one by mouth daily MULTIPLE VITAMIN 04445576260 No Longer Active Sahara Rodriguez MD PhD Active BACTRIM DS 800-160 MG TAB 1 tab by mouth twice daily TRIMETHOPRIM-SULFAMETHOXAZOLE 29067832977 No Longer Active Sahara Rodriguez MD PhD Active [facility] PROBIOTIC ORAL CHEW 2 daily po PROBIOTIC PRODUCT 34179983715 No Longer Active Sahara Rodriguez MD PhD Active BACTRIM DS 800-160 MG TABS 1 po BID x 7 days SULFAMETHOXAZOLE-TRIMETHOPRIM 57262954963 No Longer Active Vishal Hui MD Active CHANTIX STARTING MONTH EARNEST 0.5 MG X 11 & 1 MG X 42 TABS 0.5mg daily for 3 days , then 0.5mg BID for 4 days, then 1mg BID VARENICLINE TARTRATE 43791233392 No Longer Active TAMARA Gray Active VERAPAMIL HCL CR 120 MG TAB CR 1 po bid VERAPAMIL HCL 83150908846 No Longer Active Vishal Hui MD Active METOPROLOL SUCCINATE 50 MG TB24 1 tablet by mouth daily METOPROLOL SUCCINATE 66405596017 No Longer Active Vishal Hui MD Active SAPHRIS 10 MG SUBL 1 tab po bid ASENAPINE MALEATE 38194952147 No Longer Active Vishal Hui MD Active LISINOPRIL 20 MG TABS 1 tab po qd LISINOPRIL 80198074202 No Longer Active Vishal Hui MD Active LATUDA 20 MG TABS Take one by mouth daily LURASIDONE HCL 59556724152 No Longer Active Vishal Hui MD Active TRAZODONE HCL 50 MG TABS 1/2 tab po qd prn for anxiety TRAZODONE HCL 34623957537 No Longer Active Vishal Hui MD Active OMEPRAZOLE 20 MG TBEC 1 po q a.m. 30min prior to first food intake OMEPRAZOLE 89702414679 Active Vishal Hui MD Active RANITIDINE HCL 150 MG CAPS 1 twice a day RANITIDINE HCL 67805557798 Active Luigi Martínez APRN Active LINZESS 290 MCG CAPS Take one by mouth daily LINACLOTIDE 08486765308 No Longer Active Vishal Hui MD Active SAPHRIS 5 MG SUBL 1 tab po qd ASENAPINE MALEATE 67515787327 No Longer Active Vishal Hui MD Active ZALEPLON 10 MG CAPS 1 cap po every other night ZALEPLON 19505461285 No Longer Active Vishal Hui MD Active LYRICA 50 MG CAPS 1 tab po TID PREGABALIN 29934690986 No Longer Active Vishal Hui MD Active LORATADINE 10 MG TABS 1 tab po qd LORATADINE 52399784117 No Longer Active Vishal Hui MD Active VERAPAMIL HCL ER 180 MG CR-TABS 1 tab po bid VERAPAMIL HCL 21194355664 No Longer Active Vishal uHi MD Active MIRALAX POWD 1 capfull once daily POLYETHYLENE GLYCOL 3350 50954689848 No Longer Active Vishal Hui MD Active PREDNISONE 20 MG TABS 1 tab po qd PREDNISONE 00380886046 No Longer Active Renzo Thornton DO Active LEVOFLOXACIN 500 MG TABS 1 tab po qd LEVOFLOXACIN 41822278281 No Longer Active Renzo Thornton DO Active BUSPIRONE HCL 15 MG TABS 1 tab po TID BUSPIRONE HCL 96817278557 No Longer Active Renzo Thornton DO Active BENZTROPINE MESYLATE 1 MG TABS 1 tab po qd BENZTROPINE MESYLATE 01015242915 No Longer Active Renzo Thornton DO Active ATENOLOL 25 MG TABS 1 tab po qd ATENOLOL 02639833388 No Longer Active Renzo Thornton DO Active ESCITALOPRAM OXALATE 20 MG TABS 1 tab po qd ESCITALOPRAM OXALATE 29860295965 No Longer Active Renzo Thornton DO Active ADVAIR DISKUS 250-50 MCG/DOSE AEPB 1 puff BID FLUTICASONE-SALMETEROL 89419717946 No Longer Active Renzo Thornton DO Active PREDNISONE 20 MG TAB 2 tabs daily for 3 days, 1 tab daily for 3 days, 1/2 tab daily for 2 days PREDNISONE 52440345574 No Longer Active Vishal Hui MD Active CEFDINIR 300 MG CAPS by mouth twice a day CEFDINIR 99309815626 No Longer Active Vishal Hui MD Active LANSOPRAZOLE 30 MG CPDR 1 cap po qd LANSOPRAZOLE 90446462457 No Longer Active Vishal Hui MD Active BACLOFEN 20 MG TABS 1 tab po tid BACLOFEN 57918900177 No Longer Active Vishal Hui MD Active ADVAIR DISKUS 250-50 MCG/DOSE AEPB 1 puff BID ADVAIR DISKUS 250-50 MCG/DOSE AEPB FLUTICASONE-SALMETEROL Inactive ESCITALOPRAM OXALATE 20 MG TABS 1 tab po qd ESCITALOPRAM OXALATE 20 MG TABS 235604 ESCITALOPRAM OXALATE Inactive ATENOLOL 25 MG TABS 1 tab po qd ATENOLOL 25 MG TABS 098830 ATENOLOL Inactive BENZTROPINE MESYLATE 1 MG TABS 1 tab po qd BENZTROPINE MESYLATE 1 MG TABS 192158 BENZTROPINE MESYLATE Inactive BUSPIRONE HCL 15 MG TABS 1 tab po TID BUSPIRONE HCL 15 MG TABS 328038 BUSPIRONE HCL Inactive LEVOFLOXACIN 500 MG TABS 1 tab po qd LEVOFLOXACIN 500 MG TABS 728459 LEVOFLOXACIN Inactive PREDNISONE 20 MG TABS 1 tab po qd PREDNISONE 20 MG TABS 928196 PREDNISONE Inactive MIRALAX POWD 1 capfull once daily MIRALAX POWD 586697 POLYETHYLENE GLYCOL 3350 Inactive VERAPAMIL HCL ER 180 MG CR-TABS 1 tab po bid VERAPAMIL HCL ER 180 MG CR-TABS VERAPAMIL HCL Inactive LORATADINE 10 MG TABS 1 tab po qd LORATADINE 10 MG TABS 893362 LORATADINE Inactive LYRICA 50 MG CAPS 1 tab po TID LYRICA 50 MG CAPS PREGABALIN Inactive ZALEPLON 10 MG CAPS 1 cap po every other night ZALEPLON 10 MG CAPS 193474 ZALEPLON Inactive SAPHRIS 5 MG SUBL 1 tab po qd SAPHRIS 5 MG SUBL ASENAPINE MALEATE Inactive TRAZODONE HCL 50 MG TABS 1/2 tab po qd prn for anxiety TRAZODONE HCL 50 MG TABS 517464 TRAZODONE HCL Inactive LATUDA 20 MG TABS Take one by mouth daily LATUDA 20 MG TABS LURASIDONE HCL Inactive LISINOPRIL 20 MG TABS 1 tab po qd LISINOPRIL 20 MG TABS 092335 LISINOPRIL Inactive SAPHRIS 10 MG SUBL 1 [...] twice daily BACTRIM DS 800-160 MG TAB 222916 TRIMETHOPRIM-SULFAMETHOXAZOLE Inactive MULTIVITAMINS CAPS Take one by mouth daily MULTIVITAMINS CAPS MULTIPLE VITAMIN Inactive MELATONIN 3 MG CAPS 2 po q hs MELATONIN 3 MG CAPS 313358 MELATONIN Inactive KEFLEX 500 MG ORAL CAPS 1 cap QID by mouth KEFLEX 500 MG ORAL CAPS 104000 CEPHALEXIN Inactive CLINDAMYCIN HCL 150 MG CAPS 1 four times a day CLINDAMYCIN HCL 150 MG CAPS 849315 CLINDAMYCIN HCL Inactive DIFLUCAN 150 MG TAB 1 tablet by mouth daily DIFLUCAN 150 MG TAB 774233 FLUCONAZOLE Inactive PROZAC 20 MG CAP Take one by mouth daily PROZAC 20 MG CAP 955350 FLUOXETINE HCL Inactive IBUPROFEN 600 MG TAB 1 po TID PRN IBUPROFEN 600 MG TAB 187690 IBUPROFEN Inactive VYVANSE 40 MG CAPS 1 daily, VYVANSE 40 MG CAPS LISDEXAMFETAMINE DIMESYLATE Inactive TRAZODONE HCL 100 MG TAB take 1 at bedtime TRAZODONE HCL 100 MG TAB 738149 TRAZODONE HCL Inactive AMITRIPTYLINE HCL 100 MG TAB one at hs AMITRIPTYLINE HCL 100 MG TAB 910406 AMITRIPTYLINE HCL Inactive AMLODIPINE BESYLATE 5 MG TABS 1 tablet by mouth daily AMLODIPINE BESYLATE 5 MG TABS 732557 AMLODIPINE BESYLATE Inactive LATUDA 80 MG TABS Take one by mouth daily LATUDA 80 MG TABS LURASIDONE HCL Inactive SAPHRIS 5 MG SUBL 1 po bid SAPHRIS 5 MG SUBL ASENAPINE MALEATE Inactive PREDNISONE 20 MG TAB 2 tabs daily for 4 days, 1 tab daily for 4 days, 1/2 tab daily for 4 days PREDNISONE 20 MG TAB 562313 PREDNISONE Inactive AMBIEN 5 MG ORAL TABS 1 tab at bedtime AMBIEN 5 MG ORAL TABS 115469 ZOLPIDEM TARTRATE Inactive PROZAC 20 MG ORAL CAPS 1 tab daily PROZAC 20 MG ORAL CAPS 120667 FLUOXETINE HCL Inactive ABILIFY 15 MG ORAL TABS 1 tab daily ABILIFY 15 MG ORAL TABS 625775 ARIPIPRAZOLE Inactive METOPROLOL TARTRATE 50 MG TAB 1 po bid METOPROLOL TARTRATE 50 MG TAB 950599 METOPROLOL TARTRATE Inactive TRAMADOL HCL 50 MG TABS 1-2 po TID PRN Pain TRAMADOL HCL 50 MG TABS 217998 TRAMADOL HCL Inactive PIROXICAM 20 MG CAPS 1 cap po qd PRN Pain PIROXICAM 20 MG CAPS 884300 PIROXICAM Inactive MINIPRESS 2 MG CAPS 4 cap po at night MINIPRESS 2 MG CAPS 822048 PRAZOSIN HCL Inactive MIRALAX PACK 1 po qd PRN Constipation MIRALAX PACK 179980 POLYETHYLENE GLYCOL 3350 Inactive METOPROLOL TARTRATE 25 MG ORAL TABS 1/2 tablet twice daily for heart rate and blood pressure METOPROLOL TARTRATE 25 MG ORAL TABS 997712 METOPROLOL TARTRATE Inactive VALIUM 5 MG TAB Take 1-2 tablets daily VALIUM 5 MG TAB 752867 DIAZEPAM Inactive FLAGYL 500 MG TAB 1 tablet by mouth bid FLAGYL 500 MG TAB 602001 METRONIDAZOLE Inactive DICLOFENAC POTASSIUM TABS Take 1 tablet twice a day (pt. is not sure of the dose.) DICLOFENAC POTASSIUM TABS DICLOFENAC POTASSIUM TABS Inactive ZITHROMAX Z-EARNEST 250 MG TABS 2 today and then 1 daily for 4 days ZITHROMAX Z-EARNEST 250 MG TABS 8194011 AZITHROMYCIN Inactive PREDNISONE 20 MG TABS 2 daily for 5 days then 1 daily for 5 days PREDNISONE 20 MG TABS 257363 PREDNISONE Inactive PROAIR HFA 108 (90 BASE) MCG/ACT AERS 2 puffs four times a day as needed 2015 PROAIR HFA 108 (90 BASE) MCG/ACT AERS ALBUTEROL SULFATE Inactive HYDROCODONE-ACETAMINOPHEN 5-325 MG TABS 1 to 2 four times a day as needed for pain use until can be seen by specialist HYDROCODONE- ACETAMINOPHEN 5-325 MG TABS 489519 HYDROCODONE-ACETAMINOPHEN Inactive CEFDINIR 300 MG CAPS by mouth twice a day CEFDINIR 300 MG CAPS 707459 CEFDINIR Inactive PREDNISONE 20 MG TAB 2 tabs daily for 3 days, 1 tab daily for 3 days, 1/2 tab daily for 2 days PREDNISONE 20 MG TAB 707344 PREDNISONE Inactive BACTRIM DS 800-160 MG TABS 1 po BID x 7 days BACTRIM DS 800-160 MG TABS 089974 SULFAMETHOXAZOLE-TRIMETHOPRIM Inactive DIFLUCAN 150 MG TABS 1 pill every other day x 2 doses DIFLUCAN 150 MG TABS 222581 FLUCONAZOLE Inactive BACTRIM DS 800-160 MG TABS 1 pill by mouth twice daily BACTRIM DS 800-160 MG TABS 198237 SULFAMETHOXAZOLE-TRIMETHOPRIM Inactive KEFLEX 500 MG CAP 1 po TID x 10 days KEFLEX 500 MG CAP 810164 CEPHALEXIN Inactive Advance Directives Directive Description Start [...] % 11.6-14.8 platelet count 394 10^3/MM^3 10*3/mm3 216-460 0653/01/11 leukocyte count, blood 13.8 10^3/MM^3 10*3/mm3 4.6-10.2 [...] Panel - Chemistry sodium, serum 139 mmol/L 686-641 8346/12/03 carbon dioxide, venous blood 28.5 mmol/L 21.0-32.0 [...] 5.5 % 4.3-6.0 cholesterol, serum 159 mg/dL 698-991 3886/12/03 triglyceride, serum, fasting 118 mg/dL 30-200 HDL [...] Panel - Chemistry sodium, serum 139 mmol/L 791-192 4413/12/22 carbon dioxide, venous blood 26.8 mmol/L 21.0-32.0 potassium, serum 4.2 mmol/L 3.5-5.2 chloride, serum 103 mmol/L 98-107 blood glucose 115 mg/dL 65-110 urea nitrogen, blood 20 mg/dL 7-18 creatinine, serum 0.90 mg/dL 0.55-1.30 alanine aminotransferase (SGPT), serum 38 U/L -78 aspartate aminotransferase (SGOT), serum 19 U/L 15-37 calcium, serum 8.6 mg/dL 8.5-10.1 bilirubin, serum, total 0.30 mg/dL 0.00-1.00 sodium, serum 139 mmol/L 002-365 9005/01/11 carbon dioxide, venous blood 26.6 mmol/L 21.0-32.0 potassium, serum 4.1 mmol/L 3.5-5.2 chloride, serum 100 mmol/L 98-107 blood glucose 86 mg/dL 65-110 urea nitrogen, blood 16 mg/dL 7-18 creatinine, serum 1.00 mg/dL 0.55-1.30 alanine aminotransferase (SGPT), serum 48 U/L 78 aspartate aminotransferase (SGOT), serum 17 U/L 15-37 calcium, serum 9.1 mg/dL 8.5-10.1 bilirubin, serum, total 0.40 mg/dL 0.00-1.00 sodium, serum 142 mmol/L 217-453 4278/06/08 carbon dioxide, venous blood 27.6 mmol/L 21.0-32.0 potassium, serum 4.0 mmol/L 3.5-5.2 chloride, serum 105 mmol/L 98-107 blood glucose 95 mg/dL 65-110 urea nitrogen, blood 8 mg/dL 7-18 creatinine, serum 0.75 mg/dL 0.55-1.30 alanine aminotransferase (SGPT), serum 49 U/L - aspartate aminotransferase (SGOT), serum 28 U/L 15-37 calcium, serum 9.4 mg/dL 8.5-10.1 bilirubin, serum, total 0.30 mg/dL 0.00-1.00 sodium, serum 140 mmol/L 994-089 1546/08/08 carbon dioxide, venous blood 33.7 mmol/L 21.0-32.0 [...] Rate - Chemistry sodium, serum 139 mmol/L 183-022 6585/12/11 carbon dioxide, venous blood 25.4 mmol/L 21.0-32.0 [...] mg/dL Encounters Code Encounter Date Provider Facility CPT-28585 Level 3 Est. Patient 11:36:17 CDT Ahmet Carbajal MD [facility] CPT-33899 Level 3 Est. Patient 13:29:16 CDT Vishal Hui MD [facility] CPT-88565 Level 3 Est. Patient 14:27:52 CDT Neeraj Collins MD [facility] CPT-43394 Level 3 Est. Patient 08:56:03 CDT Luigi Martínez APRN [facility] CPT-67023 Level 4 Est. Patient 12:11:48 CDT Fabiola Johnson APRN [facility] CPT-27045 Level 3 New Patient 16:53:37 CDT Albert Caldera MD [facility] CPT-26407 Level 3 Est. Patient 11:25:49 CDT Renzo Thornton DO [facility] CPT-22904 Level 3 Est. Patient 15:22:01 CDT Ahmet Carbajal MD [facility] CPT-05613 Level 4 Est. Patient 09:00:51 CEMENT SACK [employer]AKER Vishal Hui MD [facility] CPT-20496 Level 3 Est. Patient 11:37:33 CEMENT SACK BREAKER Vishal Hui MD [facility] CPT-10142 Level 3 Est. Patient 08:41:09 CEMENT SACK BREAKER Vishal Hui MD [facility] CPT-19421 Level 4 Est. Patient 10:19:35 CEMENT SACK BREAKER Vishal Hui MD [facility] CPT-75292 Level 3 Est. Patient 13:35:45 CDT Vishal Hui MD [facility] CPT-69297 Level 4 Est. Patient 10:08:37 CDT Vishal Hui MD [facility] CPT-97943 Level 3 Est. Patient 11:22:10 CDT Vishal Hui MD [facility] CPT-48307 Level 3 Est. Patient 11:03:32 CDT Sahara Rodriguez MD PhD [facility] CPT-44369 Level 3 Est. Patient 09:41:35 CDT Vishal Hui MD [facility] CPT-35396 Level 3 Est. Patient 12:00:41 CDT Neeraj Collins MD [facility] CPT-22362 Level 3 Est. Patient 09:16:24 CDT Vishal Hui MD [facility] CPT-05463 Level 4 Est. Patient 13:59:09 CDT Neeraj Collins MD [facility] CPT-52210 Level 3 Est. Patient 15:19:43 CDT Renzo Thornton [facility] CPT-84285 Level 3 Est. Patient 18:10:26 CDT Sahara Rodriguez MD [facility] CPT-35185 Level 3 Est. Patient 14:49:50 CDT Vishal Hui MD [facility] CPT-18239 Level 4 Est. Patient 18:41:46 CDT Neeraj Clolins MD [facility] CPT-14697 Level 4 Est. Patient 09:18:38 CEMENT SACK BREAKER Vishal Hui MD [facility] CPT-66252 Level 3 Est. Patient 14:43:55 CEMENT SACK BREAKER Vishal Hui MD [facility] [place] CPT-78991 Level 3 Est. Patient 15:26:33 CEMENT SACK BREAKER Sahara Rodriguez MD PhD [facility] CPT-03790 Level 3 Est. Patient 10:32:14 CEMENT SACK BREAKER Vishal Hui MD [facility] CPT-67320 Level 3 Est. Patient 15:12:52 CEMENT SACK BREAKER Vishal Hui MD [facility] CPT-38312 Level 4 Est. Patient 09:19:27 CDT Vishal Hui MD [facility] CPT-43257 Level 3 Est. Patient 15:53:00 CDT Renzo Thornton [facility] CPT-94825 Level 3 Est. Patient 15:50:30 CDT Renzo Thornton [facility] CPT-62316 Level 3 Est. Patient 16:55:24 CDT Vishal Hui MD [facility] Procedures Code Procedure Name Date Entry Date Standard Description CPT-05260 Abx/Therapy Injection 08:47:09 CDT CPT-95632 Abx/Therapy Injection 13:29:56 CDT CPT-82834 Abx/Therapy Injection 08:36:16 CDT CPT-00808 Wet Mount - LAB USE ONLY 17:44:58 CDT CPT-34176 UA w micro - LAB USE ONLY 17:44:58 CDT CPT-48289 CMP - LAB USE ONLY 17:44:58 CDT CPT-53143 Venipuncture Draw Fee 17:44:58 CDT CPT-67231 Cervical Min 4V - XRAY USE ONLY 09:01:40 CDT CPT-10977 Chest 2V Frontal and Lat - XRAY USE ONLY 11:06:31 CDT CPT-83728 EKG Trac and Interp - XRAY USE ONLY 11:31:43 CDT 08/26 CPT-J3420 Vitamin B12 1000mcg (Cyanocobalamin) 08:10:26 CEMENT SACK BREAKER 04/12 CPT-25754 Abx/Therapy Injection 08:10:26 CEMENT SACK BREAKER CPT-G0438 Initial Annual Wellness Exam 19:01:01 CEMENT SACK BREAKER CPT-J3420 Vitamin B12 1000mcg (Cyanocobalamin) 16:57:46 CDT 08/14 CPT-35934 Recombivax HB Injection Suspension 5 MCG/0.5ML 08:37:50 CEMENT SACK BREAKER CPT-10616 Immunization Single Admin 08:37:50 CEMENT SACK BREAKER CPT-J3420 Vitamin B12 1000mcg (Cyanocobalamin) 08:32:16 CEMENT SACK BREAKER 03/11 CPT-61770 Abx/Therapy Injection 08:32:16 CEMENT SACK BREAKER CPT-87039 Chest 2V Frontal and Lat 11:46:38 CEMENT SACK BREAKER CPT-15109 Venipuncture Draw Fee 09:12:45 CEMENT SACK BREAKER CPT-J3420 Vitamin B12 1000mcg (Cyanocobalamin) 08:50:15 CEMENT SACK BREAKER 02/08 CPT-77063 Abx/Therapy Injection 08:50:15 CEMENT SACK BREAKER CPT-Cryo Cryotherapy 10:19:35 CEMENT SACK BREAKER CPT-000 Give Appropriate Flu Vaccine 09:22:16 CDT CPT-J3420 Vitamin B12 1000mcg (Cyanocobalamin) 19:08:57 CDT 01/11 CPT-96196 Abx/Therapy Injection 19:08:57 CDT CPT-J3420 Vitamin B12 1000mcg (Cyanocobalamin) 08:19:08 CDT 12/11 CPT-37383 Abx/Therapy Injection 08:19:08 CDT CPT-J3420 Vitamin B12 1000mcg (Cyanocobalamin) 14:48:00 CDT 11/09 CPT-26139 Abx/Therapy Injection 14:47:59 CDT CPT-J3420 Vitamin B12 1000mcg (Cyanocobalamin) 08:34:04 CDT 10/09 CPT-48023 Abx/Therapy Injection 08:34:04 CDT CPT-J3420 Vitamin B12 1000mcg (Cyanocobalamin) 09:18:52 CDT 09/11 CPT-46384 Abx/Therapy Injection 09:18:52 CDT CPT-J3420 Vitamin B12 1000mcg (Cyanocobalamin) 08:35:44 CDT 09/04 CPT-13568 Abx/Therapy Injection 08:35:44 CDT CPT-22432 Immunization Single Admin 11:07:16 CDT CPT-49115 Hepatitis B adult IM 11:07:16 CDT CPT-J3420 Vitamin B12 1000mcg (Cyanocobalamin) 11:00:49 CDT 08/28 CPT-J1040 Depo Medrol 80 mg (Methyl Prednisolone Acetate) 11:00: 49 CDT CPT-61835 Abx/Therapy Injection 11:00:49 CDT CPT-J1040 Depo Medrol 80 mg (Methyl Prednisolone Acetate) 09:16: 23 CDT CPT-J3420 Vitamin B12 1000mcg (Cyanocobalamin) 08:27:05 CDT 08/20 CPT-34924 Abx/Therapy Injection 08:27:05 CDT CPT-96457 Recombivax HB Injection Suspension 5 MCG/0.5ML 10:00:41 CDT CPT-08669 Administration single or combination vaccine inc oral 10 :00:41 CDT CPT-20621 Sono transvag pelvis non OB uterus ovaries cervix 16:36: 57 CDT CPT-25657 LS spine comp w obliq 09:50:55 CEMENT S[employer] BREAKER CPT-34230 Abd compl w upright 09:50:55 CEMENT SACK BREAKER CPT-J1100 Decadron 4mg (Dexamethasone) 15:51:24 CEMENT SACK BREAKER CPT-J1030 Depo Medrol 40 mg (Methyl Prednisolone Acetate) 15:51: 24 CEMENT SACK BREAKER CPT-96493 Abx/Therapy Injection 15:51:24 CEMENT SACK BREAKER CPT-J1100 Decadron 4mg (Dexamethasone) 15:26:33 CEMENT SACK BREAKER CPT-J1030 Depo Medrol 40 mg (Methyl Prednisolone Acetate) 15:26: 33 CEMENT S[employer] BREAKER CPT-79173 Sono retroperitoneal complete kidneys and bladder 17:15: 30 CDT CPT-06619 Abd compl w upright 16:09:25 CDT CPT-J1100 Decadron 8mg (Dexamethasone) 17:07:57 CDT CPT-69796 Abx/Therapy Injection 17:07:57 CDT CPT-J1100 Decadron 8mg (Dexamethasone) 16:55:24 CDT CPT-89637 Chest 2V Frontal and Lat 16:32:44 CDT
--- OUTSIDE RECORDS SUMMARY | 2016-11-04 16:47 | XMS REPORT ---
Author Author [facility] Medical Staff Organization [facility] Address [address] [place] [place], [place] [address] Phone [phone] Care Team Providers [facility] [employer] Concierge Name Role Phone DENICE OCHOA MD, PP [phone] Summary purpose TRANSITION OF CARE AUTO GENERATION [...] diagnostic tests and/or laboratory data RESULTS Chemistry [id number]:00 Result Normal Range Units Sodium 140 134-145 mEq/l Potassium 4.2 3.5-5.1 mEq/l Chloride 107 98-107 mEq/l CO2 23.9 22-28 mEq/l Glucose 89 70-105 mg/dl BUN 8 7-18 mg/dl Creatinine 0.68 0.6-1.0 mg/dl Calcium L 8.3 8.4-10.2 mg/dl Osmolality L 277.2 280-300 mOsm/L Anion GAP 9.1 8-16 BUN/Creatinine Ratio 11.8 10-20 Estimated GFR 103 >=60 mL/min/1.7 Hematology - Other (Misc) [id number]:56:00 Result Normal Range Units Sed Rate 7 0-20 History of procedures No procedures recorded for [...]
--- OUTSIDE RECORDS SUMMARY | 2016-11-04 16:48 | XMS REPORT | Clinical Summary ---
Author Author Admin, E Organization [employer] Address Unknown Phone Unavailable Allergies, Adverse Reactions, [...] pain, right ICD-789.09 Inactive Vishal Hui MD Cellulitis ICD-682.9 Inactive Vishal Hui MD Pelvic pain ICD-625.9 Inactive Vishla Hui MD Abscess, skin ICD-682.9 Inactive Vishal Hui MD Abdominal pain ICD-789.00 Inactive Vishal Hui MD Medication List Medication Instructions Start Date Stop Date Generic Name NDC Status Provider Patient Instruction TIZANIDINE HCL 4 MG TABS 1 po q6hr PRN Muscle Spasm/Back Pain TIZANIDINE HCL 45319411687 Active Vishal Hui MD Active CLINDAMYCIN HCL 150 MG CAPS 1 four times a day CLINDAMYCIN HCL 18435768464 No Longer Active Neeraj Collins MD Active KEFLEX 500 MG ORAL CAPS 1 cap QID by mouth CEPHALEXIN 24131237587 No Longer Active Neeraj Collins MD Active DIFLUCAN 150 MG TABS 1 pill every other day x 2 doses FLUCONAZOLE 48965074247 No Longer Active Sahara Rodriguez MD PhD Active MELATONIN 3 MG CAPS 2 po q hs MELATONIN 96290462244 No Longer Active Sahara Rodriguez MD PhD Active MULTIVITAMINS CAPS Take one by mouth daily MULTIPLE VITAMIN 99919706845 No Longer Active Sahara Rodriguez MD PhD Active BACTRIM DS 800-160 MG TAB 1 tab by mouth twice daily TRIMETHOPRIM-SULFAMETHOXAZOLE 52864458998 No Longer Active Sahara oRdriguez MD PhD Active [employer] PROBIOTIC ORAL CHEW 2 daily po PROBIOTIC PRODUCT 92822893620 No Longer Active Sahara Rodriguez MD PhD Active IBUPROFEN 600 MG TAB 1 po TID PRN IBUPROFEN 40322670674 Active Luigi Martínez [employer] Active BACTRIM DS 800-160 MG TABS 1 po BID x 7 days SULFAMETHOXAZOLE-TRIMETHOPRIM 58505674181 No Longer Active Vishal Hui MD Active CHANTIX STARTING MONTH EARNEST 0.5 MG X 11 & 1 MG X 42 TABS 0.5mg daily for 3 days , then 0.5mg BID for 4 days, then 1mg BID VARENICLINE TARTRATE 13621607295 No Longer Active TAMARA Gray Active METOPROLOL TARTRATE 50 MG TAB 1 po bid METOPROLOL TARTRATE 79228418254 Active Vishal Hui MD Active TRAZODONE HCL 100 MG TAB take 1 at bedtime TRAZODONE HCL 98546503487 Active Vishal Hui MD Active AMLODIPINE BESYLATE 5 MG TABS 1 tablet by mouth daily AMLODIPINE BESYLATE 47753636557 Active Vishal Hui MD Active VERAPAMIL HCL CR 120 MG TAB CR 1 po bid VERAPAMIL HCL 72683366216 No Longer Active Vishal Hui MD Active METOPROLOL SUCCINATE 50 MG TB24 1 tablet by mouth daily METOPROLOL SUCCINATE 56245725730 No Longer Active Vishal Hui MD Active TRAMADOL HCL 50 MG TABS 1-2 po TID PRN Pain TRAMADOL HCL 54053017023 Active Vishal Hui MD Active SAPHRIS 5 MG SUBL 1 po bid ASENAPINE MALEATE 88298800489 Active Vishal Hui MD Active SAPHRIS 10 MG SUBL 1 tab po bid ASENAPINE MALEATE 79185305223 No Longer Active Vishal Hui MD Active LISINOPRIL 20 MG TABS 1 tab po qd LISINOPRIL 63380997291 No Longer Active Vishal Hui MD Active BENADRYL 25 MG CAP 2 po tid prn anxiety DIPHENHYDRAMINE HCL 23791660751 Active Vishal Hiu MD Active LATUDA 80 MG TABS Take one by mouth daily LURASIDONE HCL 23540344029 Active Vishal Hui MD Active LATUDA 20 MG TABS Take one by mouth daily LURASIDONE HCL 51406074771 No Longer Active Vishal Hui MD Active TRAZODONE HCL 50 MG TABS 1/2 tab po qd prn for anxiety TRAZODONE HCL 63921326564 No Longer Active Vishal Hui MD Active PIROXICAM 20 MG CAPS 1 cap po qd PRN Pain PIROXICAM 24560892541 Active Vishal Hui MD Active OMEPRAZOLE 20 MG TBEC 1 po q a.m. 30min prior to first food intake OMEPRAZOLE 37325602454 Active Vishal Hui MD Active RANITIDINE HCL 150 MG CAPS 1 twice a day RANITIDINE HCL 79247881071 Active Vishal Hui MD Active PROZAC 20 MG CAP Take one by mouth daily FLUOXETINE HCL 02003205469 Active Vishal Hui MD Active LINZESS 290 MCG CAPS Take one by mouth daily LINACLOTIDE 63455905784 Active Vishal Hui MD Active SAPHRIS 5 MG SUBL 1 tab po qd ASENAPINE MALEATE 24683669691 No Longer Active Vishal Hui MD Active ZALEPLON 10 MG CAPS 1 cap po every other night ZALEPLON 21129428845 No Longer Active Vishal Hui MD Active LYRICA 50 MG CAPS 1 tab po TID PREGABALIN 55126611107 No Longer Active Vishal Hui MD Active LORATADINE 10 MG TABS 1 tab po qd LORATADINE 56991266709 No Longer Active Vishal Hui MD Active VERAPAMIL HCL ER 180 MG CR-TABS 1 tab po bid VERAPAMIL HCL 92515671175 No Longer Active Vishal Hui MD Active MIRALAX POWD 1 capfull once daily POLYETHYLENE GLYCOL 3350 65662073484 No Longer Active Vishal Hui MD Active PREDNISONE 20 MG TABS 1 tab po qd PREDNISONE 32396199209 No Longer Active Renzo Thornton DO Active LEVOFLOXACIN 500 MG TABS 1 tab po qd LEVOFLOXACIN 73152901077 No Longer Active Renzo Thornton DO Active BUSPIRONE HCL 15 MG TABS 1 tab po TID BUSPIRONE HCL 86295203915 No Longer Active Renzo Thornton DO Active BENZTROPINE MESYLATE 1 MG TABS 1 tab po qd BENZTROPINE MESYLATE 78598354000 No Longer Active Renzo Thornton DO Active ATENOLOL 25 MG TABS 1 tab po qd ATENOLOL 07544081582 No Longer Active Renzo Thornton DO Active ESCITALOPRAM OXALATE 20 MG TABS 1 tab po qd ESCITALOPRAM OXALATE 68226499731 No Longer Active Renzo Thornton DO Active ADVAIR DISKUS 250-50 MCG/DOSE AEPB 1 puff BID FLUTICASONE-SALMETEROL 91712100138 No Longer Active Renzo Thornton DO Active PREDNISONE 20 MG TAB 2 tabs daily for 3 days, 1 tab daily for 3 days, 1/2 tab daily for 2 days PREDNISONE 12204174083 No Longer Active Vishal Hui MD Active CEFDINIR 300 MG CAPS by mouth twice a day CEFDINIR 29935846130 No Longer Active Vishal Hui MD Active LANSOPRAZOLE 30 MG CPDR 1 cap po qd LANSOPRAZOLE 24308741910 No Longer Active Vishal Hui MD Active TOPAMAX 25 MG TABS 1 tab po bid TOPIRAMATE 10789128557 Active Vishal Hui MD Active MINIPRESS 2 MG CAPS 1 cap po at night PRAZOSIN HCL 69534929887 Active Vishal Hui MD Active BACLOFEN 20 MG TABS 1 tab po tid BACLOFEN 86748446219 No Longer Active Vishal Hui MD Active ADVAIR DISKUS 250-50 MCG/DOSE AEPB 1 puff BID ADVAIR DISKUS 250-50 MCG/DOSE AEPB FLUTICASONE-SALMETEROL Inactive ESCITALOPRAM OXALATE 20 MG TABS 1 tab po qd ESCITALOPRAM OXALATE 20 MG TABS 750459 ESCITALOPRAM OXALATE Inactive ATENOLOL 25 MG TABS 1 tab po qd ATENOLOL 25 MG TABS 953101 ATENOLOL Inactive BENZTROPINE MESYLATE 1 MG TABS 1 tab po qd BENZTROPINE MESYLATE 1 MG TABS 408187 BENZTROPINE MESYLATE Inactive BUSPIRONE HCL 15 MG TABS 1 tab po TID BUSPIRONE HCL 15 MG TABS 434820 BUSPIRONE HCL Inactive LEVOFLOXACIN 500 MG TABS 1 tab po qd LEVOFLOXACIN 500 MG TABS 601390 LEVOFLOXACIN Inactive PREDNISONE 20 MG TABS 1 tab po qd PREDNISONE 20 MG TABS 213165 PREDNISONE Inactive MIRALAX POWD 1 capfull once daily MIRALAX POWD 645494 POLYETHYLENE GLYCOL 3350 Inactive VERAPAMIL HCL ER 180 MG CR-TABS 1 tab po bid VERAPAMIL HCL ER 180 MG CR-TABS VERAPAMIL HCL Inactive LORATADINE 10 MG TABS 1 tab po qd LORATADINE 10 MG TABS 032394 LORATADINE Inactive LYRICA 50 MG CAPS 1 tab po TID LYRICA 50 MG CAPS PREGABALIN Inactive ZALEPLON 10 MG CAPS 1 cap po every other night ZALEPLON 10 MG CAPS 724698 ZALEPLON Inactive SAPHRIS 5 MG SUBL 1 tab po qd SAPHRIS 5 MG SUBL ASENAPINE MALEATE Inactive TRAZODONE HCL 50 MG TABS 1/2 tab po qd prn for anxiety TRAZODONE HCL 50 MG TABS 569635 TRAZODONE HCL Inactive LATUDA 20 MG TABS Take one by mouth daily LATUDA 20 MG TABS LURASIDONE HCL Inactive LISINOPRIL 20 MG TABS 1 tab po qd LISINOPRIL 20 MG TABS 868527 LISINOPRIL Inactive SAPHRIS 10 MG SUBL 1 [...] po q hs MELATONIN 3 MG CAPS 565867 MELATONIN Inactive KEFLEX 500 MG ORAL CAPS 1 cap QID by mouth KEFLEX 500 MG ORAL CAPS 335347 CEPHALEXIN Inactive CLINDAMYCIN HCL 150 MG CAPS 1 four times a day CLINDAMYCIN HCL 150 MG CAPS 863358 CLINDAMYCIN HCL Inactive CEFDINIR 300 MG CAPS by mouth twice a day CEFDINIR 300 MG CAPS 226701 CEFDINIR Inactive PREDNISONE 20 MG TAB 2 tabs daily for 3 days, 1 tab daily for 3 days, 1/2 tab daily for 2 days PREDNISONE 20 MG TAB 797260 PREDNISONE Inactive BACTRIM DS 800-160 MG TABS 1 po BID x 7 days BACTRIM DS 800-160 MG TABS SULFAMETHOXAZOLE-TRIMETHOPRIM Inactive DIFLUCAN 150 MG TABS 1 pill every other day x 2 doses DIFLUCAN 150 MG TABS 944260 FLUCONAZOLE Inactive Vital Signs Date Name Value [...] ... - Chemistry sodium, serum 140 mmol/L 715-420 9858/05/28 potassium, serum 4.2 mmol/L 3.5-5.2 chloride, serum [...] 22 mg/dL 7-18 sodium, serum 141 mmol/L 847-249 2690 creatinine, serum 0.90 mg/dL 0.60-1.30 alanine aminotransferase (SGPT), serum 28 U/L -78 aspartate aminotransferase (SGOT), serum 13 U/L 15-37 calcium, serum 8.5 mg/dL 8.5-10.1 bilirubin, serum, total 0.20 mg/dL 0.00-1.00 potassium, serum 4.3 mmol/L 3.5-5.2 Lab Report: Comp. Metabolic Panel, Lipid Panel - Chemistry sodium, serum 139 mmol/L 644-520 8276/12/31 potassium, serum 4.8 mmol/L 3.5-5.2 chloride, serum 106 mmol/L 98-107 carbon dioxide, venous blood 24.3 mmol/L 21.0-32.0 blood glucose 90 mg/dL 65-110 urea nitrogen, blood 16 mg/dL 7-18 creatinine, serum 1.00 mg/dL 0.60-1.30 alanine aminotransferase (SGPT), serum 41 U/L 12-78 aspartate aminotransferase (SGOT), serum 17 U/L 15-37 calcium, serum 8.6 mg/dL 8.5-10.1 bilirubin, serum, total 0.30 mg/dL 0.00-1.00 cholesterol, serum 108 mg/dL 609-236 9384/12/31 triglyceride, serum, fasting 120 mg/dL 30-200 HDL cholesterol, serum 28 mg/dL 32-96 LDL cholesterol, serum 56 mg/dL 0-130 Lab Report: MICROALBUMIN - Chemistry albumin/creatinine ratio, urine < 30 mg/g mg/g{creat} 0-29 Lab Report: MICROALBUMIN - Lab microalbumin, urine 10 0-19 Lab Report: UADIP W/MICRO, AUTO, [facility] [place] - Chemistry RBC, urine, dipstick Negative Negative human chorionic gonadotropin, urine, qualitative (urine test) Negative Negative protein, total urine random Negative mg/dL Negative Lab Report: UADIP W/MICRO, AUTO, [facility] [place] - Urinalysis pH, urine, semiquantitative 7.0 5.0-8.5 specific gravity, urine 1.025 1.000-1.030 appearance, urine Clear Clear urine color Yellow Colorless;Lightyellow;Straw;Yellow urobilinogen, urine, semiquantitative (dipstick) 0.2 Normal leukocyte esterase, urine, by dipstick Negative Negative nitrite, urine, semiquantitative Negative Negative glucose, urine, semiquantitative Negative Negative ketones, urine, by test strip Negative Negative bilirubin, urine Negative Negative Lab Report: Varicella-Zoater Inga IgG,IgM/14177, HEP Be Antibody/556, RUB ... - Serology rubella antibody, serum, IgG 2.88 Encounters Code Encounter Date Provider Facility CPT-13916 Level 3 Est. Patient 09:16:24 CDT Vishal Hui MD [facility] CPT-26559 Level 4 Est. Patient 13:59:09 CDT Neeraj Collins MD [facility] CPT-85527 Level 3 Est. Patient 15:19:43 CDT Renzo Thornton [facility] CPT-56196 Level 3 Est. Patient 18:10:26 CDT Sahara Rodriguez MD PhD [facility] CPT-45699 Level 3 Est. Patient 14:49:50 CDT Vishal Hui MD [facility] CPT-89694 Level 4 Est. Patient 18:41:46 CDT Neeraj Collins MD [facility] CPT-51516 Level 4 Est. Patient 09:18:38 [employer] Vishal Hui MD [facility] CPT-12579 Level 3 Est. Patient 14:43:55 [employer] Vishal Hui MD [facility] CPT-72164 Level 3 Est. Patient 15:26:33 [employer] Sahara Rodriguez MD PhD [facility] CPT-69152 Level 3 Est. Patient 10:32:14 [employer] Vishal Hui MD [facility] CPT-21814 Level 3 Est. Patient 15:12:52 [employer] Vishal Hui MD [facility] CPT-51068 Level 4 Est. Patient 09:19:27 CDT Vishal Hui MD [facility] CPT-69003 Level 3 Est. Patient 15:53:00 CDT Renzo Thornton [facility] CPT-41909 Level 3 Est. Patient 15:50:30 CDT Renzo Thornton [facility] CPT-57649 Level 3 Est. Patient 16:55:24 CDT Vishal Hui MD [facility] Procedures Code Procedure Name Date Entry Date Standard Description CPT-J1040 Depo Medrol 80 mg (Methyl Prednisolone Acetate) 09:16: 23 CDT CPT-J3420 Vitamin B12 1000mcg (Cyanocobalamin) 08:27:05 CDT 08/20 CPT-39400 Abx/Therapy Injection 08:27:05 CDT CPT-08488 Recombivax HB Injection Suspension 5 MCG/0.5ML 10:00:41 CDT CPT-49598 Administration single or combination vaccine inc oral 10 :00:41 CDT CPT-72877 Sono transvag pelvis non OB uterus ovaries cervix 16:36: 57 CDT CPT-29113 LS spine comp w obliq 09:50:55 [employer] CPT-04136 Abd compl w upright 09:50:55 [employer] CPT-J1100 Decadron 4mg (Dexamethasone) 15:51:24 [employer] CPT-J1030 Depo Medrol 40 mg (Methyl Prednisolone Acetate) 15:51: 24 [employer] CPT-59809 Abx/Therapy Injection 15:51:24 WAFER [employer] CPT-J1100 Decadron 4mg (Dexamethasone) 15:26:33 [employer] CPT-J1030 Depo Medrol 40 mg (Methyl Prednisolone Acetate) 15:26: 33 [employer] CPT-30800 Sono retroperitoneal complete kidneys and bladder 17:15: 30 CDT CPT-08735 Abd compl w upright 16:09:25 CDT CPT-J1100 Decadron 8mg (Dexamethasone) 17:07:57 CDT CPT-87941 Abx/Therapy Injection 17:07:57 CDT CPT-J1100 Decadron 8mg (Dexamethasone) 16:55:24 CDT CPT-25070 Chest 2V Frontal and Lat 16:32:44 CDT
--- OUTSIDE RECORDS SUMMARY | 2016-11-04 16:51 | XMS REPORT | Clinical Summary ---
Author Author Admin, [employer] Organization [facility] Address Unknown Phone Unavailable Allergies, Adverse Reactions, [...] Nocturnal hypoxia 799.02 Active Fabiola Johnson COMMUNITY HEALTH NURSE SUPERVISOR Hypoxemia Neck pain 723.1 Resolved Vishal [...] Leukocytosis ICD-288.60 Jim Hui MD UTI ICD-599.0 Jmi Hui MD Headache, atypical ICD-784.0 Inactive Albert [...] times daily as needed for cough BENZONATATE 31357567317 Active Vishal Hui MD Active METHYLPREDNISOLONE 4 MG ORAL TABS po daily METHYLPREDNISOLONE 99749765309 Active Vishal Hui MD Active LEVOFLOXACIN 500 MG ORAL TABS po daily LEVOFLOXACIN 84284350671 Active Vishal Hui MD Active CHANTIX STARTING MONTH EARNEST 0.5 MG X 11 & 1 MG X 42 TABS take as directed 2015 VARENICLINE TARTRATE 08968812588 Active Ahmet Carbajal MD Active CHANTIX 1 MG TABS 1 twice a day to help quit smoking VARENICLINE TARTRATE 13709258353 Active Ahmet Carbajal MD Active HYDROCODONE-ACETAMINOPHEN 5-325 MG TABS 1 to 2 four times a day as needed for pain use until can be seen by specialist HYDROCODONE- ACETAMINOPHEN 01644045507 No Longer Active Vishal Hui MD Active PROAIR HFA 108 (90 BASE) MCG/ACT AERS 2 puffs four times a day as needed 2015 ALBUTEROL SULFATE 91204814915 No Longer Active Vishal Hui MD Active PREDNISONE 20 MG TABS 2 daily for 5 days then 1 daily for 5 days PREDNISONE 73630300900 No Longer Active Vishal Hui MD Active ZITHROMAX Z-EARNEST 250 MG TABS 2 today and then 1 daily for 4 days AZITHROMYCIN 40469226411 No Longer Active Vishal Hui MD Active DICLOFENAC SODIUM 50 MG TBEC 1 tablet by mouth four times daily PRN Pain 2015 DICLOFENAC SODIUM 98662924575 Active Vishal Hui MD Active DICLOFENAC POTASSIUM TABS Take 1 tablet twice a day (pt. is not sure of the dose.) DICLOFENAC POTASSIUM TABS 99170205536 No Longer Active Vishal Hui MD Active VERAPAMIL HCL ER 120 MG ORAL CR-TABS Take 1 tablet by mouth twice a day. VERAPAMIL HCL 07743780087 Active Vishal Hui MD Active FLAGYL 500 MG TAB 1 tablet by mouth bid METRONIDAZOLE 00398766502 No Longer Active Vishal Hui MD Active ABILIFY MAINTENA 400 MG IM SUSR 400mg injection every 28 days ARIPIPRAZOLE 13765300308 Active Silvia Casey QUALITY SYSTEMS ENGINEER Active FLUTICASONE PROPIONATE 50 MCG/ACT SUSP 2 sprays each nostril daily before bed. FLUTICASONE PROPIONATE 16541965044 Active Fabiola Johnson COMMUNITY HEALTH NURSE SUPERVISOR Active ADZENYS XR-ODT 6.3 MG ORAL TBED 1 tab po daily for ADHD AMPHETAMINE 43027729504 Active Fabiolaniall Johnson APRN Active BENADRYL 25 MG CAP 4 po at bedtime for insomnia DIPHENHYDRAMINE HCL 19193766243 Active Fabiola Johnson LEANN Active KLONOPIN 1 MG ORAL TABS 1 tab po TID CLONAZEPAM 14546380672 Active Fabiolaniall Johnson APRN Active VALIUM 5 MG TAB Take 1-2 tablets daily DIAZEPAM 73361178118 No Longer Active Fabiola Johnson LEANN Active METOPROLOL TARTRATE 25 MG ORAL TABS 1/2 tablet twice daily for heart rate and blood pressure METOPROLOL TARTRATE 16452301155 No Longer Active Fabiolaniall Johnson APRN Active MIRALAX ORAL POWD 17GMS DAILY IN WATER POLYETHYLENE GLYCOL 3350 16290713020 Active Vishal Hui MD Active VIIBRYD 10 MG ORAL TABS Take 1 tablet once a day VILAZODONE HCL 68975360806 Active Ahmet Carbajal MD Active MIRALAX PACK 1 po qd PRN Constipation POLYETHYLENE GLYCOL 3350 95011744453 No Longer Active Ahmet Carbajal MD Active MINIPRESS 2 MG CAPS 4 cap po at night PRAZOSIN HCL 73752112965 No Longer Active Ahmet Carbajal MD Active PIROXICAM 20 MG CAPS 1 cap po qd PRN Pain PIROXICAM 24683338825 No Longer Active Ahmet Carbajal MD Active TRAMADOL HCL 50 MG TABS 1-2 po TID PRN Pain TRAMADOL HCL 55259656352 No Longer Active Ahmet Carbajal MD Active METOPROLOL TARTRATE 50 MG TAB 1 po bid METOPROLOL TARTRATE 99623367531 No Longer Active Ahmet Carbajal MD Active ABILIFY 15 MG ORAL TABS 1 tab daily ARIPIPRAZOLE 62839644651 No Longer Active Ahmet Carbajal MD Active PROZAC 20 MG ORAL CAPS 1 tab daily FLUOXETINE HCL 33212120898 No Longer Active Ahmet Carbajal MD Active AMBIEN 5 MG ORAL TABS 1 tab at bedtime ZOLPIDEM TARTRATE 61057223367 No Longer Active Ahmet Carbajal MD Active PREDNISONE 20 MG TAB 2 tabs daily for 4 days, 1 tab daily for 4 days, 1/2 tab daily for 4 days PREDNISONE 87484974931 No Longer Active Ahmet Carbajal MD Active KEFLEX 500 MG CAP 1 po TID x 10 days CEPHALEXIN 97456915651 No Longer Active Vishal Hui MD Active IMITREX 50 MG ORAL TABS 1/2 tab every 6 hours prn SUMATRIPTAN SUCCINATE 21460825289 Active Jillina Frazell COMMUNITY HEALTH NURSE SUPERVISOR Active TOPAMAX 50 MG ORAL TABS 1 tab twice daily TOPIRAMATE 30919405888 Active Vishal Hui MD Active SAPHRIS 5 MG SUBL 1 po bid ASENAPINE MALEATE 83913502966 No Longer Active Jillina Frazell COMMUNITY HEALTH NURSE SUPERVISOR Active LATUDA 80 MG TABS Take one by mouth daily LURASIDONE HCL 30604286993 No Longer Active Jillina Frazell COMMUNITY HEALTH NURSE SUPERVISOR Active AMLODIPINE BESYLATE 5 MG TABS 1 tablet by mouth daily AMLODIPINE BESYLATE 74147561599 No Longer Active Jillina Fralebron WALTERSN Active AMITRIPTYLINE HCL 100 MG TAB one at hs AMITRIPTYLINE HCL 12787667644 No Longer Active Vishal Hui MD Active TRAZODONE HCL 100 MG TAB take 1 at bedtime TRAZODONE HCL 06969531423 No Longer Active Vishal Hui MD Active VYVANSE 40 MG CAPS 1 daily, LISDEXAMFETAMINE DIMESYLATE 87244108724 No Longer Active Vishal Hui MD Active IBUPROFEN 600 MG TAB 1 po TID PRN IBUPROFEN 35425036925 No Longer Active Vishal Hui MD Active PROZAC 20 MG CAP Take one by mouth daily FLUOXETINE HCL 05921490393 No Longer Active Vishal Hui MD Active ZOFRAN 4 MG TABS 1 po q6hr PRN Nausea ONDANSETRON HCL Active Vishal Hui MD Active BACTRIM DS 800-160 MG TABS 1 pill by mouth twice daily SULFAMETHOXAZOLE-TRIMETHOPRIM 34093779852 No Longer Active Sahara Rodriguez MD PhD Active DIFLUCAN 150 MG TAB 1 tablet by mouth daily FLUCONAZOLE 45796081488 No Longer Active Vishal Hui MD Active TIZANIDINE HCL 4 MG TABS 1 po q6hr PRN Muscle Spasm/Back Pain TIZANIDINE HCL 08250596484 Active Vishal Hui MD Active CLINDAMYCIN HCL 150 MG CAPS 1 four times a day CLINDAMYCIN HCL 89634436034 No Longer Active Neeraj Collins MD Active KEFLEX 500 MG ORAL CAPS 1 cap QID by mouth CEPHALEXIN 39998418511 No Longer Active Neeraj Collins MD Active DIFLUCAN 150 MG TABS 1 pill every other day x 2 doses FLUCONAZOLE 36964298303 No Longer Active Sahara Rodriguez MD PhD Active MELATONIN 3 MG CAPS 2 po q hs MELATONIN 60841528900 No Longer Active Sahara Rodriguez MD PhD Active MULTIVITAMINS CAPS Take one by mouth daily MULTIPLE VITAMIN 10219132872 No Longer Active Sahara Rodriguez MD PhD Active BACTRIM DS 800-160 MG TAB 1 tab by mouth twice daily TRIMETHOPRIM-SULFAMETHOXAZOLE 21450266403 No Longer Active Sahara Rodriguez MD PhD Active [facility] PROBIOTIC ORAL CHEW 2 daily po PROBIOTIC PRODUCT 94319201877 No Longer Active Sahara Rodriguez MD PhD Active BACTRIM DS 800-160 MG TABS 1 po BID x 7 days SULFAMETHOXAZOLE-TRIMETHOPRIM 96275758164 No Longer Active Vishal Hui MD Active CHANTIX STARTING MONTH EARNEST 0.5 MG X 11 & 1 MG X 42 TABS 0.5mg daily for 3 days , then 0.5mg BID for 4 days, then 1mg BID VARENICLINE TARTRATE 14557213444 No Longer Active BERNARD GrayHope Active VERAPAMIL HCL CR 120 MG TAB CR 1 po bid VERAPAMIL HCL 39606176551 No Longer Active Vishal Hui MD Active METOPROLOL SUCCINATE 50 MG TB24 1 tablet by mouth daily METOPROLOL SUCCINATE 02137961659 No Longer Active Vishal Hui MD Active SAPHRIS 10 MG SUBL 1 tab po bid ASENAPINE MALEATE 03870050020 No Longer Active Vishal Hui MD Active LISINOPRIL 20 MG TABS 1 tab po qd LISINOPRIL 69958951803 No Longer Active Vishal Hui MD Active LATUDA 20 MG TABS Take one by mouth daily LURASIDONE HCL 37970696803 No Longer Active Vishal Hui MD Active TRAZODONE HCL 50 MG TABS 1/2 tab po qd prn for anxiety TRAZODONE HCL 11890604882 No Longer Active Vishal Hui MD Active OMEPRAZOLE 20 MG TBEC 1 po q a.m. 30min prior to first food intake OMEPRAZOLE 21460807887 Active Vishal Hui MD Active RANITIDINE HCL 150 MG CAPS 1 twice a day RANITIDINE HCL 53274428386 Active Luigi Martínez APRN Active LINZESS 290 MCG CAPS Take one by mouth daily LINACLOTIDE 69953550793 No Longer Active Vishal Hui MD Active SAPHRIS 5 MG SUBL 1 tab po qd ASENAPINE MALEATE 78294684453 No Longer Active Vishal Hui MD Active ZALEPLON 10 MG CAPS 1 cap po every other night ZALEPLON 74239300416 No Longer Active Vishal Hui MD Active LYRICA 50 MG CAPS 1 tab po TID PREGABALIN 00818535494 No Longer Active Vishal Hui MD Active LORATADINE 10 MG TABS 1 tab po qd LORATADINE 50047750387 No Longer Active Vishal Hui MD Active VERAPAMIL HCL ER 180 MG CR-TABS 1 tab po bid VERAPAMIL HCL 02343185046 No Longer Active Vishal Hui MD Active MIRALAX POWD 1 capfull once daily POLYETHYLENE GLYCOL 3350 70366048239 No Longer Active Vishal Hui MD Active PREDNISONE 20 MG TABS 1 tab po qd PREDNISONE 89067382012 No Longer Active Renzo Thornton DO Active LEVOFLOXACIN 500 MG TABS 1 tab po qd LEVOFLOXACIN 49454837028 No Longer Active Renzo Thornton DO Active BUSPIRONE HCL 15 MG TABS 1 tab po TID BUSPIRONE HCL 86516029274 No Longer Active Renzo Thornton DO Active BENZTROPINE MESYLATE 1 MG TABS 1 tab po qd BENZTROPINE MESYLATE 85564762703 No Longer Active Renzo Thornton DO Active ATENOLOL 25 MG TABS 1 tab po qd ATENOLOL 49468995692 No Longer Active Renzo Thornton DO Active ESCITALOPRAM OXALATE 20 MG TABS 1 tab po qd ESCITALOPRAM OXALATE 68420772857 No Longer Active Renzo Thornton DO Active ADVAIR DISKUS 250-50 MCG/DOSE AEPB 1 puff BID FLUTICASONE-SALMETEROL 26360705231 No Longer Active Renzo Thornton DO Active PREDNISONE 20 MG TAB 2 tabs daily for 3 days, 1 tab daily for 3 days, 1/2 tab daily for 2 days PREDNISONE 51404007922 No Longer Active Vishal Hui MD Active CEFDINIR 300 MG CAPS by mouth twice a day CEFDINIR 65342917106 No Longer Active Vishal Hui MD Active LANSOPRAZOLE 30 MG CPDR 1 cap po qd LANSOPRAZOLE 28565987112 No Longer Active Vishal Hui MD Active BACLOFEN 20 MG TABS 1 tab po tid BACLOFEN 15295666474 No Longer Active Vishal Hui MD Active ADVAIR DISKUS 250-50 MCG/DOSE AEPB 1 puff BID ADVAIR DISKUS 250-50 MCG/DOSE AEPB FLUTICASONE-SALMETEROL Inactive ESCITALOPRAM OXALATE 20 MG TABS 1 tab po qd ESCITALOPRAM OXALATE 20 MG TABS 553818 ESCITALOPRAM OXALATE Inactive ATENOLOL 25 MG TABS 1 tab po qd ATENOLOL 25 MG TABS 092874 ATENOLOL Inactive BENZTROPINE MESYLATE 1 MG TABS 1 tab po qd BENZTROPINE MESYLATE 1 MG TABS 174151 BENZTROPINE MESYLATE Inactive BUSPIRONE HCL 15 MG TABS 1 tab po TID BUSPIRONE HCL 15 MG TABS 279015 BUSPIRONE HCL Inactive LEVOFLOXACIN 500 MG TABS 1 tab po qd LEVOFLOXACIN 500 MG TABS 497732 LEVOFLOXACIN Inactive PREDNISONE 20 MG TABS 1 tab po qd PREDNISONE 20 MG TABS 685343 PREDNISONE Inactive MIRALAX POWD 1 capfull once daily MIRALAX POWD 319803 POLYETHYLENE GLYCOL 3350 Inactive VERAPAMIL HCL ER 180 MG CR-TABS 1 tab po bid VERAPAMIL HCL ER 180 MG CR-TABS VERAPAMIL HCL Inactive LORATADINE 10 MG TABS 1 tab po qd LORATADINE 10 MG TABS 221093 LORATADINE Inactive LYRICA 50 MG CAPS 1 tab po TID LYRICA 50 MG CAPS PREGABALIN Inactive ZALEPLON 10 MG CAPS 1 cap po every other night ZALEPLON 10 MG CAPS 264785 ZALEPLON Inactive SAPHRIS 5 MG SUBL 1 tab po qd SAPHRIS 5 MG SUBL ASENAPINE MALEATE Inactive TRAZODONE HCL 50 MG TABS 1/2 tab po qd prn for anxiety TRAZODONE HCL 50 MG TABS 944470 TRAZODONE HCL Inactive LATUDA 20 MG TABS Take one by mouth daily LATUDA 20 MG TABS LURASIDONE HCL Inactive LISINOPRIL 20 MG TABS 1 tab po qd LISINOPRIL 20 MG TABS 282712 LISINOPRIL Inactive SAPHRIS 10 MG SUBL 1 [...] twice daily BACTRIM DS 800-160 MG TAB 309883 TRIMETHOPRIM-SULFAMETHOXAZOLE Inactive MULTIVITAMINS CAPS Take one by mouth daily MULTIVITAMINS CAPS MULTIPLE VITAMIN Inactive MELATONIN 3 MG CAPS 2 po q hs MELATONIN 3 MG CAPS 891188 MELATONIN Inactive KEFLEX 500 MG ORAL CAPS 1 cap QID by mouth KEFLEX 500 MG ORAL CAPS 557609 CEPHALEXIN Inactive CLINDAMYCIN HCL 150 MG CAPS 1 four times a day CLINDAMYCIN HCL 150 MG CAPS 493079 CLINDAMYCIN HCL Inactive DIFLUCAN 150 MG TAB 1 tablet by mouth daily DIFLUCAN 150 MG TAB 960243 FLUCONAZOLE Inactive PROZAC 20 MG CAP Take one by mouth daily PROZAC 20 MG CAP 917115 FLUOXETINE HCL Inactive IBUPROFEN 600 MG TAB 1 po TID PRN IBUPROFEN 600 MG TAB 358658 IBUPROFEN Inactive VYVANSE 40 MG CAPS 1 daily, VYVANSE 40 MG CAPS LISDEXAMFETAMINE DIMESYLATE Inactive TRAZODONE HCL 100 MG TAB take 1 at bedtime TRAZODONE HCL 100 MG TAB 153342 TRAZODONE HCL Inactive AMITRIPTYLINE HCL 100 MG TAB one at hs AMITRIPTYLINE HCL 100 MG TAB 311025 AMITRIPTYLINE HCL Inactive AMLODIPINE BESYLATE 5 MG TABS 1 tablet by mouth daily AMLODIPINE BESYLATE 5 MG TABS 179845 AMLODIPINE BESYLATE Inactive LATUDA 80 MG TABS Take one by mouth daily LATUDA 80 MG TABS LURASIDONE HCL Inactive SAPHRIS 5 MG SUBL 1 po bid SAPHRIS 5 MG SUBL ASENAPINE MALEATE Inactive PREDNISONE 20 MG TAB 2 tabs daily for 4 days, 1 tab daily for 4 days, 1/2 tab daily for 4 days PREDNISONE 20 MG TAB 439526 PREDNISONE Inactive AMBIEN 5 MG ORAL TABS 1 tab at bedtime AMBIEN 5 MG ORAL TABS 338922 ZOLPIDEM TARTRATE Inactive PROZAC 20 MG ORAL CAPS 1 tab daily PROZAC 20 MG ORAL CAPS 972637 FLUOXETINE HCL Inactive ABILIFY 15 MG ORAL TABS 1 tab daily ABILIFY 15 MG ORAL TABS 943293 ARIPIPRAZOLE Inactive METOPROLOL TARTRATE 50 MG TAB 1 po bid METOPROLOL TARTRATE 50 MG TAB 424810 METOPROLOL TARTRATE Inactive TRAMADOL HCL 50 MG TABS 1-2 po TID PRN Pain TRAMADOL HCL 50 MG TABS 922325 TRAMADOL HCL Inactive PIROXICAM 20 MG CAPS 1 cap po qd PRN Pain PIROXICAM 20 MG CAPS 334941 PIROXICAM Inactive MINIPRESS 2 MG CAPS 4 cap po at night MINIPRESS 2 MG CAPS 129743 PRAZOSIN HCL Inactive MIRALAX PACK 1 po qd PRN Constipation MIRALAX PACK 113187 POLYETHYLENE GLYCOL 3350 Inactive METOPROLOL TARTRATE 25 MG ORAL TABS 1/2 tablet twice daily for heart rate and blood pressure METOPROLOL TARTRATE 25 MG ORAL TABS 674091 METOPROLOL TARTRATE Inactive VALIUM 5 MG TAB Take 1-2 tablets daily VALIUM 5 MG TAB 597327 DIAZEPAM Inactive FLAGYL 500 MG TAB 1 tablet by mouth bid FLAGYL 500 MG TAB 089883 METRONIDAZOLE Inactive DICLOFENAC POTASSIUM TABS Take 1 tablet twice a day (pt. is not sure of the dose.) DICLOFENAC POTASSIUM TABS DICLOFENAC POTASSIUM TABS Inactive ZITHROMAX Z-EARNEST 250 MG TABS 2 today and then 1 daily for 4 days ZITHROMAX Z-EARNEST 250 MG TABS 0518332 AZITHROMYCIN Inactive PREDNISONE 20 MG TABS 2 daily for 5 days then 1 daily for 5 days PREDNISONE 20 MG TABS 606144 PREDNISONE Inactive PROAIR HFA 108 (90 BASE) MCG/ACT AERS 2 puffs four times a day as needed 2015 PROAIR HFA 108 (90 BASE) MCG/ACT AERS ALBUTEROL SULFATE Inactive HYDROCODONE-ACETAMINOPHEN 5-325 MG TABS 1 to 2 four times a day as needed for pain use until can be seen by specialist HYDROCODONE- ACETAMINOPHEN 5-325 MG TABS 043282 HYDROCODONE-ACETAMINOPHEN Inactive CEFDINIR 300 MG CAPS by mouth twice a day CEFDINIR 300 MG CAPS 052966 CEFDINIR Inactive PREDNISONE 20 MG TAB 2 tabs daily for 3 days, 1 tab daily for 3 days, 1/2 tab daily for 2 days PREDNISONE 20 MG TAB 521360 PREDNISONE Inactive BACTRIM DS 800-160 MG TABS 1 po BID x 7 days BACTRIM DS 800-160 MG TABS 19820521 SULFAMETHOXAZOLE-TRIMETHOPRIM Inactive DIFLUCAN 150 MG TABS 1 pill every other day x 2 doses DIFLUCAN 150 MG TABS 978521 FLUCONAZOLE Inactive BACTRIM DS 800-160 MG TABS 1 pill by mouth twice daily BACTRIM DS 800-160 MG TABS 19820521 SULFAMETHOXAZOLE-TRIMETHOPRIM Inactive KEFLEX 500 MG CAP 1 po TID x 10 days KEFLEX 500 MG CAP 613605 CEPHALEXIN Inactive Advance Directives Directive Description Start [...] % 11.6-14.8 platelet count 394 10^3/MM^3 10*3/mm3 925-227 6264/01/11 leukocyte count, blood 13.8 10^3/MM^3 10*3/mm3 4.6-10.2 [...] Panel - Chemistry sodium, serum 139 mmol/L 560-799 1990/12/03 carbon dioxide, venous blood 28.5 mmol/L 21.0-32.0 [...] 5.5 % 4.3-6.0 cholesterol, serum 159 mg/dL 850-801 1718/12/03 triglyceride, serum, fasting 118 mg/dL 30-200 HDL [...] Panel - Chemistry sodium, serum 139 mmol/L 118-306 6682/12/22 carbon dioxide, venous blood 26.8 mmol/L 21.0-32.0 potassium, serum 4.2 mmol/L 3.5-5.2 chloride, serum 103 mmol/L 98-107 blood glucose 115 mg/dL 65-110 urea nitrogen, blood 20 mg/dL 7-18 creatinine, serum 0.90 mg/dL 0.55-1.30 alanine aminotransferase (SGPT), serum 38 U/L aspartate aminotransferase (SGOT), serum 19 U/L 15-37 calcium, serum 8.6 mg/dL 8.5-10.1 bilirubin, serum, total 0.30 mg/dL 0.00-1.00 sodium, serum 139 mmol/L 403-555 7222/01/11 carbon dioxide, venous blood 26.6 mmol/L 21.0-32.0 potassium, serum 4.1 mmol/L 3.5-5.2 chloride, serum 100 mmol/L 98-107 blood glucose 86 mg/dL 65-110 urea nitrogen, blood 16 mg/dL - creatinine, serum 1.00 mg/dL 0.55-1.30 alanine aminotransferase (SGPT), serum 48 U/L aspartate aminotransferase (SGOT), serum 17 U/L 15-37 calcium, serum 9.1 mg/dL 8.5-10.1 bilirubin, serum, total 0.40 mg/dL 0.00-1.00 sodium, serum 142 mmol/L 631-054 9152/06/08 carbon dioxide, venous blood 27.6 mmol/L 21.0-32.0 potassium, serum 4.0 mmol/L 3.5-5.2 chloride, serum 105 mmol/L 98-107 blood glucose 95 mg/dL 65-110 urea nitrogen, blood 8 mg/dL - creatinine, serum 0.75 mg/dL 0.55-1.30 alanine aminotransferase (SGPT), serum 49 U/L aspartate aminotransferase (SGOT), serum 28 U/L 15-37 calcium, serum 9.4 mg/dL 8.5-10.1 bilirubin, serum, total 0.30 mg/dL 0.00-1.00 sodium, serum 140 mmol/L 536-217 1583/08/08 carbon dioxide, venous blood 33.7 mmol/L 21.0-32.0 [...] Rate - Chemistry sodium, serum 139 mmol/L 411-551 6865/12/11 carbon dioxide, venous blood 25.4 mmol/L 21.0-32.0 [...] RBC, urine, dipstick Negative Negative Lab Report: [place] UADIP W/MICRO, AUTO - Urinalysis urobilinogen, urine, [...] mg/dL Encounters Code Encounter Date Provider Facility CPT-56555 Level 3 Est. Patient 15:50:44 CDT Vishal Hui MD [facility] CPT-55099 Level 3 Est. Patient 11:36:17 CDT Ahmet Carbajal MD [facility] CPT-07655 Level 3 Est. Patient 13:29:16 CDT Vishal Hui MD [facility] CPT-39562 Level 3 Est. Patient 14:27:52 CDT Neeraj Collins MD [facility] CPT-37910 Level 3 Est. Patient 08:56:03 CDT Luigi Martínez [facility] CPT-56503 Level 4 Est. Patient 12:11:48 CDT Fabiola Johnson [facility] CPT-98756 Level 3 New Patient 16:53:37 CDT Albert Caldera MD [facility] CPT-86722 Level 3 Est. Patient 11:25:49 CDT Renzo Thornton DO [facility] CPT-85591 Level 3 Est. Patient 15:22:01 CDT Ahmet Carbajal MD [facility] CPT-45752 Level 4 Est. Patient 09:00:51 [employer]ER Vishal Hui MD [facility] CPT-32222 Level 3 Est. Patient 11:37:33 [employer] Vishal Hui MD [facility] CPT-08742 Level 3 Est. Patient 08:41:09 [employer] Vishal Hui MD [facility] CPT-59483 Level 4 Est. Patient 10:19:35 [employer] Vishal Hui MD [facility] CPT-46704 Level 3 Est. Patient 13:35:45 CDT Vishal Hui MD [facility] CPT-53096 Level 4 Est. Patient 10:08:37 CDT Vishal Hui MD [facility] CPT-89628 Level 3 Est. Patient 11:22:10 CDT Vishal Hui MD [facility] CPT-51067 Level 3 Est. Patient 11:03:32 CDT Sahara Rodriguez MD, PhD [facility] CPT-56799 Level 3 Est. Patient 09:41:35 CDT Vishal Hui MD [facility] [place]-52775 Level 3 Est. Patient 12:00:41 CDT Neeraj Collins MD [facility] CPT-89362 Level 3 Est. Patient 09:16:24 CDT Vishal Hui MD [facility] CPT-22240 Level 4 Est. Patient 13:59:09 CDT Neeraj Collins MD [facility] CPT-02883 Level 3 Est. Patient 15:19:43 CDT Renzo Thornton [facility] CPT-63317 Level 3 Est. Patient 18:10:26 CDT Sahara Rodriguez MD PhD [facility] CPT-57309 Level 3 Est. Patient 14:49:50 CDT Vishal Hui MD [facility] CPT-41690 Level 4 Est. Patient 18:41:46 CDT Neeraj Collins MD [facility] CPT-79164 Level 4 Est. Patient 09:18:38 [employer]ER Vishal uHi MD [facility] CPT-84257 Level 3 Est. Patient 14:43:55 [employer]ER Vishal Hui MD [facility] CPT-54557 Level 3 Est. Patient 15:26:33 [employer] Sahara Rodriguez MD PhD [facility] CPT-88799 Level 3 Est. Patient 10:32:14 [employer] Vishal Hui MD [facility] CPT-37621 Level 3 Est. Patient 15:12:52 [employer] Vishal Hui MD [facility] CPT-34376 Level 4 Est. Patient 09:19:27 CDT Vishal Hui MD [facility] CPT-78100 Level 3 Est. Patient 15:53:00 CDT Renzo Thornton [facility] CPT-24036 Level 3 Est. Patient 15:50:30 CDT Renzo Thornton [facility] CPT-18454 Level 3 Est. Patient 16:55:24 CDT Vishal Hui MD [facility] Procedures Code Procedure Name Date Entry Date Standard Description CPT-85325 Abx/Therapy Injection 08:47:09 CDT CPT-10825 Abx/Therapy Injection 13:29:56 CDT CPT-68784 Abx/Therapy Injection 08:36:16 CDT CPT-29968 Wet Mount - LAB USE ONLY 17:44:58 CDT CPT-91433 UA w micro - LAB USE ONLY 17:44:58 CDT CPT-96451 CMP - LAB USE ONLY 17:44:58 CDT CPT-95091 Venipuncture Draw Fee 17:44:58 CDT CPT-84314 Cervical Min 4V - XRAY USE ONLY 09:01:40 CDT CPT-57605 Chest 2V Frontal and Lat - XRAY USE ONLY 11:06:31 CDT CPT-22303 EKG Trac and Interp - XRAY USE ONLY 11:31:43 CDT 08/26 CPT-J3420 Vitamin B12 1000mcg (Cyanocobalamin) 08:10:26 [employer]KEY BREEDER 04/12 CPT-92775 Abx/Therapy Injection 08:10:26 MONKEY BREEDER CPT-G0438 Initial Annual Wellness Exam 19:01:01 [employer] BREEDER CPT-J3420 Vitamin B12 1000mcg (Cyanocobalamin) 16:57:46 CDT 08/14 CPT-88278 Recombivax HB Injection Suspension 5 MCG/0.5ML 08:37:50 MONKEY BREEDER CPT-46763 Immunization Single Admin 08:37:50 MONKEY BREEDER CPT-J3420 Vitamin B12 1000mcg (Cyanocobalamin) 08:32:16 MONKEY BREEDER 03/11 CPT-41985 Abx/Therapy Injection 08:32:16 MONKEY BREEDER CPT-48906 Chest 2V Frontal and Lat 11:46:38 MONKEY BREEDER CPT-25243 Venipuncture Draw Fee 09:12:45 MONKEY BREEDER CPT-J3420 Vitamin B12 1000mcg (Cyanocobalamin) 08:50:15 MONKEY BREEDER 02/08 CPT-94038 Abx/Therapy Injection 08:50:15 MONKEY BREEDER CPT-Cryo Cryotherapy 10:19:35 MONKEY BREEDER CPT-000 Give Appropriate Flu Vaccine 09:22:16 CDT CPT-J3420 Vitamin B12 1000mcg (Cyanocobalamin) 19:08:57 CDT 01/11 CPT-35141 Abx/Therapy Injection 19:08:57 CDT CPT-J3420 Vitamin B12 1000mcg (Cyanocobalamin) 08:19:08 CDT 12/11 CPT-10791 Abx/Therapy Injection 08:19:08 CDT CPT-J3420 Vitamin B12 1000mcg (Cyanocobalamin) 14:48:00 CDT 11/09 CPT-99462 Abx/Therapy Injection 14:47:59 CDT CPT-J3420 Vitamin B12 1000mcg (Cyanocobalamin) 08:34:04 CDT 10/09 CPT-10840 Abx/Therapy Injection 08:34:04 CDT CPT-J3420 Vitamin B12 1000mcg (Cyanocobalamin) 09:18:52 CDT 09/11 CPT-91817 Abx/Therapy Injection 09:18:52 CDT CPT-J3420 Vitamin B12 1000mcg (Cyanocobalamin) 08:35:44 CDT 09/04 CPT-36923 Abx/Therapy Injection 08:35:44 CDT CPT-65820 Immunization Single Admin 11:07:16 CDT CPT-24171 Hepatitis B adult IM 11:07:16 CDT CPT-J3420 Vitamin B12 1000mcg (Cyanocobalamin) 11:00:49 CDT 08/28 CPT-J1040 Depo Medrol 80 mg (Methyl Prednisolone Acetate) 11:00: 49 CDT CPT-26484 Abx/Therapy Injection 11:00:49 CDT CPT-J1040 Depo Medrol 80 mg (Methyl Prednisolone Acetate) 09:16: 23 CDT CPT-J3420 Vitamin B12 1000mcg (Cyanocobalamin) 08:27:05 CDT 08/20 CPT-61545 Abx/Therapy Injection 08:27:05 CDT CPT-24374 Recombivax HB Injection Suspension 5 MCG/0.5ML 10:00:41 CDT CPT-33266 Administration single or combination vaccine inc oral 10 :00:41 CDT CPT-26018 Sono transvag pelvis non OB uterus ovaries cervix 16:36: 57 CDT CPT-38922 LS spine comp w obliq 09:50:55 [employer] [employer]ER CPT-73850 Abd compl w upright 09:50:55 [employer]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 CPT-J1100 Decadron 4mg (Dexamethasone) 15:51:24 MONKEY BRE[employer]ER CPT-J1030 Depo Medrol 40 mg (Methyl Prednisolone Acetate) 15:51: 24 [employer] BREEDER CPT-66870 Abx/Therapy Injection 15:51:24 MONKEY BRE[employer]ER CPT-J1100 Decadron 4mg (Dexamethasone) 15:26:33 MONKEY BREEDER CPT-J1030 Depo Medrol 40 mg (Methyl Prednisolone Acetate) 15:26: 33 MONKEY BREEDER CPT-23528 Sono retroperitoneal complete kidneys and bladder 17:15: 30 CDT CPT-46845 Abd compl w upright 16:09:25 CDT CPT-J1100 Decadron 8mg (Dexamethasone) 17:07:57 CDT CPT-98004 Abx/Therapy Injection 17:07:57 CDT CPT-J1100 Decadron 8mg (Dexamethasone) 16:55:24 CDT CPT-04245 Chest 2V Frontal and Lat 16:32:44 CDT
--- OUTSIDE RECORDS SUMMARY | 2016-11-04 16:53 | XMS REPORT | Clinical Summary ---
Author Author Admin, [place] Organization [facility] Address Unknown Phone Unavailable Allergies, Adverse Reactions, [...] Comment Standard Description Annotate Asthma 493.90 Active Vihsal Hui MD Asthma, unspecified Anxiety Disorder 300.00 [...] unspecified site Postconcussion syndrome 310.2 Resolved Vishal Hiu MD Postconcussion syndrome Nevus, atypical 216.9 Resolved [...] Shortness of breath 786.05 Active Fabiola Johnson SPECIALTY SALES CONSULTANT Shortness of breath Nocturnal hypoxia 799.02 Active Fabiola Johnson SPECIALTY SALES CONSULTANT Hypoxemia Anxiety Disorder ICD-300.00 Inactive Vishal Hui [...] each nostril daily before bed. FLUTICASONE PROPIONATE 86640728100 Active Fabiola Johnson APRN Active VERAPAMIL HCL ER 120 MG ORAL CR-TABS 1 tab po daily for blood pressure 09/27 VERAPAMIL HCL 02587809856 Active Fabiola Johnson APRN Active ADZENYS XR-ODT 6.3 MG ORAL TBED 1 tab po daily for ADHD AMPHETAMINE 12228838662 Active Fabiola Johnson APRN Active BENADRYL 25 MG CAP 4 po at bedtime for insomnia DIPHENHYDRAMINE HCL 40225961694 Active Fabiola Johnson APRN Active KLONOPIN 1 MG ORAL TABS 1 tab po TID CLONAZEPAM 12478964195 Active Fabiola Johnson APRN Active VALIUM 5 MG TAB Take 1-2 tablets daily DIAZEPAM 24785027937 No Longer Active Fabiola Johnson APRN Active METOPROLOL TARTRATE 25 MG ORAL TABS 1/2 tablet twice daily for heart rate and blood pressure METOPROLOL TARTRATE 61999598371 No Longer Active Fabiola Johnson APRN Active MIRALAX ORAL POWD 17GMS DAILY IN WATER POLYETHYLENE GLYCOL 3350 31810119913 Active Vishal Hui MD Active VIIBRYD 10 MG ORAL TABS Take 1 tablet once a day VILAZODONE HCL 25629142911 Active Ahmet Carbajal MD Active DICLOFENAC POTASSIUM TABS Take 1 tablet twice a day (pt. is not sure of the dose.) DICLOFENAC POTASSIUM TABS 00504091184 Active Ahmet Carbajal MD Active MIRALAX PACK 1 po qd PRN Constipation POLYETHYLENE GLYCOL 3350 01144880881 No Longer Active Ahmet Carbajal MD Active MINIPRESS 2 MG CAPS 4 cap po at night PRAZOSIN HCL 64406537658 No Longer Active Ahmet Carbajal MD Active PIROXICAM 20 MG CAPS 1 cap po qd PRN Pain PIROXICAM 61136097737 No Longer Active Ahmet Carbajal MD Active TRAMADOL HCL 50 MG TABS 1-2 po TID PRN Pain TRAMADOL HCL 02799192043 No Longer Active Ahmet Carbajal MD Active METOPROLOL TARTRATE 50 MG TAB 1 po bid METOPROLOL TARTRATE 53281725491 No Longer Active Ahmet Carbajal MD Active ABILIFY 15 MG ORAL TABS 1 tab daily ARIPIPRAZOLE 95759849319 No Longer Active Ahmet Carbajal MD Active PROZAC 20 MG ORAL CAPS 1 tab daily FLUOXETINE HCL 61005000256 No Longer Active Ahmet Carbajal MD Active AMBIEN 5 MG ORAL TABS 1 tab at bedtime ZOLPIDEM TARTRATE 64049629677 No Longer Active Ahmet Carbajal MD Active PREDNISONE 20 MG TAB 2 tabs daily for 4 days, 1 tab daily for 4 days, 1/2 tab daily for 4 days PREDNISONE 16280505914 No Longer Active Ahmet Carbajal MD Active KEFLEX 500 MG CAP 1 po TID x 10 days CEPHALEXIN 30560866948 No Longer Active Vishal Hui MD Active ABILIFY MAINTENA 400 MG IM SUSR Injection once per month ARIPIPRAZOLE 77046517646 Active Juliet Kimbrough APRN Active IMITREX 50 MG ORAL TABS 1/2 tab every 6 hours prn SUMATRIPTAN SUCCINATE 05327792269 Active Luigi Martínez APRN Active TOPAMAX 50 MG ORAL TABS 1 tab twice daily TOPIRAMATE 80337644708 Active Vishal Hui MD Active SAPHRIS 5 MG SUBL 1 po bid ASENAPINE MALEATE 82127460284 No Longer Active Luigi Martínez APRN Active LATUDA 80 MG TABS Take one by mouth daily LURASIDONE HCL 33851602858 No Longer Active Luigi Martínez APRN Active AMLODIPINE BESYLATE 5 MG TABS 1 tablet by mouth daily AMLODIPINE BESYLATE 86478414608 No Longer Active Luigi Martínez APRN Active AMITRIPTYLINE HCL 100 MG TAB one at hs AMITRIPTYLINE HCL 87638196729 No Longer Active Vishal Hui MD Active TRAZODONE HCL 100 MG TAB take 1 at bedtime TRAZODONE HCL 65278032777 No Longer Active Vishal Hui MD Active VYVANSE 40 MG CAPS 1 daily, LISDEXAMFETAMINE DIMESYLATE 03735533827 No Longer Active Vishal Hui MD Active IBUPROFEN 600 MG TAB 1 po TID PRN IBUPROFEN 48781685487 No Longer Active Vishal Hui MD Active PROZAC 20 MG CAP Take one by mouth daily FLUOXETINE HCL 52266494361 No Longer Active Vishal Hui MD Active ZOFRAN 4 MG TABS 1 po q6hr PRN Nausea ONDANSETRON HCL Active Vishal Hui MD Active BACTRIM DS 800-160 MG TABS 1 pill by mouth twice daily SULFAMETHOXAZOLE-TRIMETHOPRIM 16733633706 No Longer Active Sahara Rodriguez MD PhD Active DIFLUCAN 150 MG TAB 1 tablet by mouth daily FLUCONAZOLE 22235027654 No Longer Active Vishal Hui MD Active TIZANIDINE HCL 4 MG TABS 1 po q6hr PRN Muscle Spasm/Back Pain TIZANIDINE HCL 18755011127 Active Luigi Martínez APRN Active CLINDAMYCIN HCL 150 MG CAPS 1 four times a day CLINDAMYCIN HCL 34498413833 No Longer Active Neeraj Collins MD Active KEFLEX 500 MG ORAL CAPS 1 cap QID by mouth CEPHALEXIN 74750457216 No Longer Active Neeraj Collins MD Active DIFLUCAN 150 MG TABS 1 pill every other day x 2 doses FLUCONAZOLE 57743148465 No Longer Active Sahara Rodriguez MD PhD Active MELATONIN 3 MG CAPS 2 po q hs MELATONIN 76289833949 No Longer Active Sahara Rodriguez MD PhD Active MULTIVITAMINS CAPS Take one by mouth daily MULTIPLE VITAMIN 65699774570 No Longer Active Sahara Rodriguez MD PhD Active BACTRIM DS 800-160 MG TAB 1 tab by mouth twice daily TRIMETHOPRIM-SULFAMETHOXAZOLE 07274075080 No Longer Active Sahara Rodriguez MD PhD Active [facility] PROBIOTIC ORAL CHEW 2 daily po PROBIOTIC PRODUCT 19529325036 No Longer Active Sahara Rodriguez MD PhD Active BACTRIM DS 800-160 MG TABS 1 po BID x 7 days SULFAMETHOXAZOLE-TRIMETHOPRIM 07406694523 No Longer Active Vishal Hui MD Active CHANTIX STARTING MONTH EARNEST 0.5 MG X 11 & 1 MG X 42 TABS 0.5mg daily for 3 days , then 0.5mg BID for 4 days, then 1mg BID VARENICLINE TARTRATE 38037130212 No Longer Active TAMARA Gray Active VERAPAMIL HCL CR 120 MG TAB CR 1 po bid VERAPAMIL HCL 46236644243 No Longer Active Vishal Hui MD Active METOPROLOL SUCCINATE 50 MG TB24 1 tablet by mouth daily METOPROLOL SUCCINATE 42604779948 No Longer Active Vishal Hui MD Active SAPHRIS 10 MG SUBL 1 tab po bid ASENAPINE MALEATE 85649166443 No Longer Active Vishal Hui MD Active LISINOPRIL 20 MG TABS 1 tab po qd LISINOPRIL 23193530039 No Longer Active Vishal Hui MD Active LATUDA 20 MG TABS Take one by mouth daily LURASIDONE HCL 28631230376 No Longer Active Vishal Hui MD Active TRAZODONE HCL 50 MG TABS 1/2 tab po qd prn for anxiety TRAZODONE HCL 51991136062 No Longer Active Vishal Hui MD Active OMEPRAZOLE 20 MG TBEC 1 po q a.m. 30min prior to first food intake OMEPRAZOLE 17113006085 Active Vishal Hui MD Active RANITIDINE HCL 150 MG CAPS 1 twice a day RANITIDINE HCL 59747309219 Active Luigi Martínez APRN Active LINZESS 290 MCG CAPS Take one by mouth daily LINACLOTIDE 79974436432 No Longer Active Vishal Hui MD Active SAPHRIS 5 MG SUBL 1 tab po qd ASENAPINE MALEATE 43115860341 No Longer Active Vishal Hui MD Active ZALEPLON 10 MG CAPS 1 cap po every other night ZALEPLON 62450783502 No Longer Active Vishal Hui MD Active LYRICA 50 MG CAPS 1 tab po TID PREGABALIN 11532332440 No Longer Active Vishal Hui MD Active LORATADINE 10 MG TABS 1 tab po qd LORATADINE 09331257398 No Longer Active Vishal Hui MD Active VERAPAMIL HCL ER 180 MG CR-TABS 1 tab po bid VERAPAMIL HCL 05581945596 No Longer Active Vishal Hui MD Active MIRALAX POWD 1 capfull once daily POLYETHYLENE GLYCOL 3350 41278007592 No Longer Active Vishal Hui MD Active PREDNISONE 20 MG TABS 1 tab po qd PREDNISONE 70839427730 No Longer Active Renzo Thornton DO Active LEVOFLOXACIN 500 MG TABS 1 tab po qd LEVOFLOXACIN 06220766708 No Longer Active Renzo Thornton DO Active BUSPIRONE HCL 15 MG TABS 1 tab po TID BUSPIRONE HCL 22765058062 No Longer Active Renzo Thornton DO Active BENZTROPINE MESYLATE 1 MG TABS 1 tab po qd BENZTROPINE MESYLATE 54158588347 No Longer Active Renzo Thornton DO Active ATENOLOL 25 MG TABS 1 tab po qd ATENOLOL 03064498456 No Longer Active Renzo Thornton DO Active ESCITALOPRAM OXALATE 20 MG TABS 1 tab po qd ESCITALOPRAM OXALATE 97490436585 No Longer Active Renzo Thornton DO Active ADVAIR DISKUS 250-50 MCG/DOSE AEPB 1 puff BID FLUTICASONE-SALMETEROL 93656751915 No Longer Active Renzo Thornton DO Active PREDNISONE 20 MG TAB 2 tabs daily for 3 days, 1 tab daily for 3 days, 1/2 tab daily for 2 days PREDNISONE 05011034179 No Longer Active Vishal Hui MD Active CEFDINIR 300 MG CAPS by mouth twice a day CEFDINIR 89876066967 No Longer Active Vishal Hui MD Active LANSOPRAZOLE 30 MG CPDR 1 cap po qd LANSOPRAZOLE 68425721930 No Longer Active Vishal Hui MD Active BACLOFEN 20 MG TABS 1 tab po tid BACLOFEN 49671462923 No Longer Active Vishal Hui MD Active ADVAIR DISKUS 250-50 MCG/DOSE AEPB 1 puff BID ADVAIR DISKUS 250-50 MCG/DOSE AEPB FLUTICASONE-SALMETEROL Inactive ESCITALOPRAM OXALATE 20 MG TABS 1 tab po qd ESCITALOPRAM OXALATE 20 MG TABS 319510 ESCITALOPRAM OXALATE Inactive ATENOLOL 25 MG TABS 1 tab po qd ATENOLOL 25 MG TABS 840662 ATENOLOL Inactive BENZTROPINE MESYLATE 1 MG TABS 1 tab po qd BENZTROPINE MESYLATE 1 MG TABS 140613 BENZTROPINE MESYLATE Inactive BUSPIRONE HCL 15 MG TABS 1 tab po TID BUSPIRONE HCL 15 MG TABS 878670 BUSPIRONE HCL Inactive LEVOFLOXACIN 500 MG TABS 1 tab po qd LEVOFLOXACIN 500 MG TABS 600706 LEVOFLOXACIN Inactive PREDNISONE 20 MG TABS 1 tab po qd PREDNISONE 20 MG TABS 710365 PREDNISONE Inactive MIRALAX POWD 1 capfull once daily MIRALAX POWD 278060 POLYETHYLENE GLYCOL 3350 Inactive VERAPAMIL HCL ER 180 MG CR-TABS 1 tab po bid VERAPAMIL HCL ER 180 MG CR-TABS VERAPAMIL HCL Inactive LORATADINE 10 MG TABS 1 tab po qd LORATADINE 10 MG TABS 403001 LORATADINE Inactive LYRICA 50 MG CAPS 1 tab po TID LYRICA 50 MG CAPS PREGABALIN Inactive ZALEPLON 10 MG CAPS 1 cap po every other night ZALEPLON 10 MG CAPS 732820 ZALEPLON Inactive SAPHRIS 5 MG SUBL 1 tab po qd SAPHRIS 5 MG SUBL ASENAPINE MALEATE Inactive TRAZODONE HCL 50 MG TABS 1/2 tab po qd prn for anxiety TRAZODONE HCL 50 MG TABS 779321 TRAZODONE HCL Inactive LATUDA 20 MG TABS Take one by mouth daily LATUDA 20 MG TABS LURASIDONE HCL Inactive LISINOPRIL 20 MG TABS 1 tab po qd LISINOPRIL 20 MG TABS 948771 LISINOPRIL Inactive SAPHRIS 10 MG SUBL 1 [...] twice daily BACTRIM DS 800-160 MG TAB 907745 TRIMETHOPRIM-SULFAMETHOXAZOLE Inactive MULTIVITAMINS CAPS Take one by mouth daily MULTIVITAMINS CAPS MULTIPLE VITAMIN Inactive MELATONIN 3 MG CAPS 2 po q hs MELATONIN 3 MG CAPS 954620 MELATONIN Inactive KEFLEX 500 MG ORAL CAPS 1 cap QID by mouth KEFLEX 500 MG ORAL CAPS 745209 CEPHALEXIN Inactive CLINDAMYCIN HCL 150 MG CAPS 1 four times a day CLINDAMYCIN HCL 150 MG CAPS 114985 CLINDAMYCIN HCL Inactive DIFLUCAN 150 MG TAB 1 tablet by mouth daily DIFLUCAN 150 MG TAB 225524 FLUCONAZOLE Inactive PROZAC 20 MG CAP Take one by mouth daily PROZAC 20 MG CAP 929280 FLUOXETINE HCL Inactive IBUPROFEN 600 MG TAB 1 po TID PRN IBUPROFEN 600 MG TAB 612379 IBUPROFEN Inactive VYVANSE 40 MG CAPS 1 daily, VYVANSE 40 MG CAPS LISDEXAMFETAMINE DIMESYLATE Inactive TRAZODONE HCL 100 MG TAB take 1 at bedtime TRAZODONE HCL 100 MG TAB 879046 TRAZODONE HCL Inactive AMITRIPTYLINE HCL 100 MG TAB one at hs AMITRIPTYLINE HCL 100 MG TAB 805412 AMITRIPTYLINE HCL Inactive AMLODIPINE BESYLATE 5 MG TABS 1 tablet by mouth daily AMLODIPINE BESYLATE 5 MG TABS 853024 AMLODIPINE BESYLATE Inactive LATUDA 80 MG TABS Take one by mouth daily LATUDA 80 MG TABS LURASIDONE HCL Inactive SAPHRIS 5 MG SUBL 1 po bid SAPHRIS 5 MG SUBL ASENAPINE MALEATE Inactive PREDNISONE 20 MG TAB 2 tabs daily for 4 days, 1 tab daily for 4 days, 1/2 tab daily for 4 days PREDNISONE 20 MG TAB 677009 PREDNISONE Inactive AMBIEN 5 MG ORAL TABS 1 tab at bedtime AMBIEN 5 MG ORAL TABS 638651 ZOLPIDEM TARTRATE Inactive PROZAC 20 MG ORAL CAPS 1 tab daily PROZAC 20 MG ORAL CAPS 444568 FLUOXETINE HCL Inactive ABILIFY 15 MG ORAL TABS 1 tab daily ABILIFY 15 MG ORAL TABS 039538 ARIPIPRAZOLE Inactive METOPROLOL TARTRATE 50 MG TAB 1 po bid METOPROLOL TARTRATE 50 MG TAB 643842 METOPROLOL TARTRATE Inactive TRAMADOL HCL 50 MG TABS 1-2 po TID PRN Pain TRAMADOL HCL 50 MG TABS 483667 TRAMADOL HCL Inactive PIROXICAM 20 MG CAPS 1 cap po qd PRN Pain PIROXICAM 20 MG CAPS 531695 PIROXICAM Inactive MINIPRESS 2 MG CAPS 4 cap po at night MINIPRESS 2 MG CAPS 646845 PRAZOSIN HCL Inactive MIRALAX PACK 1 po qd PRN Constipation MIRALAX PACK 075651 POLYETHYLENE GLYCOL 3350 Inactive METOPROLOL TARTRATE 25 MG ORAL TABS 1/2 tablet twice daily for heart rate and blood pressure METOPROLOL TARTRATE 25 MG ORAL TABS 574450 METOPROLOL TARTRATE Inactive VALIUM 5 MG TAB Take 1-2 tablets daily VALIUM 5 MG TAB 239537 DIAZEPAM Inactive CEFDINIR 300 MG CAPS by mouth twice a day CEFDINIR 300 MG CAPS 289224 CEFDINIR Inactive PREDNISONE 20 MG TAB 2 tabs daily for 3 days, 1 tab daily for 3 days, 1/2 tab daily for 2 days PREDNISONE 20 MG TAB 464754 PREDNISONE Inactive BACTRIM DS 800-160 MG TABS 1 po BID x 7 days BACTRIM DS 800-160 MG TABS 294313 SULFAMETHOXAZOLE-TRIMETHOPRIM Inactive DIFLUCAN 150 MG TABS 1 pill every other day x 2 doses DIFLUCAN 150 MG TABS 635934 FLUCONAZOLE Inactive BACTRIM DS 800-160 MG TABS 1 pill by mouth twice daily BACTRIM DS 800-160 MG TABS 002943 SULFAMETHOXAZOLE-TRIMETHOPRIM Inactive KEFLEX 500 MG CAP 1 po TID x 10 days KEFLEX 500 MG CAP 820391 CEPHALEXIN Inactive Advance Directives Directive Description Start [...] % 11.6-14.8 platelet count 394 10^3/MM^3 10*3/mm3 792-556 2510/01/11 leukocyte count, blood 13.8 10^3/MM^3 10*3/mm3 4.6-10.2 [...] Panel - Chemistry sodium, serum 139 mmol/L 668-258 2278/12/03 carbon dioxide, venous blood 28.5 mmol/L 21.0-32.0 [...] 5.5 % 4.3-6.0 cholesterol, serum 159 mg/dL 946-382 7864/12/03 triglyceride, serum, fasting 118 mg/dL 30-200 HDL [...] Panel - Chemistry sodium, serum 139 mmol/L 827-577 9925/12/22 carbon dioxide, venous blood 26.8 mmol/L 21.0-32.0 potassium, serum 4.2 mmol/L 3.5-5.2 chloride, serum 103 mmol/L 98-107 blood glucose 115 mg/dL 65-110 urea nitrogen, blood 20 mg/dL 7-18 creatinine, serum 0.90 mg/dL 0.55-1.30 alanine aminotransferase (SGPT), serum 38 U/L - aspartate aminotransferase (SGOT), serum 19 U/L 15-37 calcium, serum 8.6 mg/dL 8.5-10.1 bilirubin, serum, total 0.30 mg/dL 0.00-1.00 sodium, serum 139 mmol/L 476-744 0138/01/11 carbon dioxide, venous blood 26.6 mmol/L 21.0-32.0 potassium, serum 4.1 mmol/L 3.5-5.2 chloride, serum 100 mmol/L 98-107 blood glucose 86 mg/dL 65-110 urea nitrogen, blood 16 mg/dL 7-18 creatinine, serum 1.00 mg/dL 0.55-1.30 alanine aminotransferase (SGPT), serum 48 U/L -78 aspartate aminotransferase (SGOT), serum 17 U/L 15-37 calcium, serum 9.1 mg/dL 8.5-10.1 bilirubin, serum, total 0.40 mg/dL 0.00-1.00 sodium, serum 142 mmol/L 938-111 5093/06/08 carbon dioxide, venous blood 27.6 mmol/L 21.0-32.0 [...] Rate - Chemistry sodium, serum 139 mmol/L 476-262 0038/12/11 carbon dioxide, venous blood 25.4 mmol/L 21.0-32.0 [...] mg/dL Encounters Code Encounter Date Provider Facility CPT-61266 Level 4 Est. Patient 12:11:48 CDT Fabiola Johnson APRN [facility] CPT-86208 Level 3 New Patient 16:53:37 CDT Albert Caldera MD [facility] CPT-57367 Level 3 Est. Patient 11:25:49 CDT Renzo Thornton DO [facility] CPT-41502 Level 3 Est. Patient 15:22:01 CDT Ahmet Carbajal MD [facility] CPT-64942 Level 4 Est. Patient 09:00:51 PEST CONTROL SUPERVISOR Vishal Hui MD [facility] CPT-29653 Level 3 Est. Patient 11:37:33 PEST CONTROL SUPERVISOR Vishal Hui MD [facility] CPT-53576 Level 3 Est. Patient 08:41:09 PEST CONTROL SUPERVISOR Vishal Hui MD [facility] CPT-65924 Level 4 Est. Patient 10:19:35 PEST CONTROL SUPERVISOR Vishal Hui MD [facility] CPT-83686 Level 3 Est. Patient 13:35:45 CDT Vishal Hui MD [facility] CPT-88163 Level 4 Est. Patient 10:08:37 CDT Vishal Hui MD [facility] CPT-79423 Level 3 Est. Patient 11:22:10 CDT Vishal Hui MD [facility] CPT-98847 Level 3 Est. Patient 11:03:32 CDT Sahara Rodriguez MD [facility] CPT-68156 Level 3 Est. Patient 09:41:35 CDT Vishal Hui MD [facility] CPT-90669 Level 3 Est. Patient 12:00:41 CDT Neeraj Collins MD [facility] CPT-80796 Level 3 Est. Patient 09:16:24 CDT Vishal Hui MD [facility] CPT-66449 Level 4 Est. Patient 13:59:09 CDT Neeraj Collins MD [facility] CPT-38783 Level 3 Est. Patient 15:19:43 CDT Renzo Thornton DO [facility] CPT-64671 Level 3 Est. Patient 18:10:26 CDT Sahara Rodriguez MD [facility]-20198 Level 3 Est. Patient 14:49:50 CDT Vishal Hui MD [facility] CPT-60232 Level 4 Est. Patient 18:41:46 CDT Neeraj Collins MD [facility] CPT-85870 Level 4 Est. Patient 09:18:38 PEST CONTROL SUPERVISOR Vishal Hui MD [facility] CPT-62058 Level 3 Est. Patient 14:43:55 PEST CONTROL SUPERVISOR Vishal Hui MD [facility] CPT-25337 Level 3 Est. Patient 15:26:33 PEST CONTROL SUPERVISOR Sahara Rodriguez MD [facility]-62055 Level 3 Est. Patient 10:32:14 PEST CONTROL SUPERVISOR Vishal Hui MD [facility]-55830 Level 3 Est. Patient 15:12:52 PEST CONTROL SUPERVISOR Vishal Hui MD [facility] CPT-05155 Level 4 Est. Patient 09:19:27 CDT Vishal Hui MD [facility] CPT-71109 Level 3 Est. Patient 15:53:00 CDT Renzo Thornton [facility] CPT-53337 Level 3 Est. Patient 15:50:30 CDT Renzo Thornton [facility] CPT-66005 Level 3 Est. Patient 16:55:24 CDT Vishal Hui MD [facility] Procedures Code Procedure Name Date Entry Date Standard Description CPT-47474 Chest 2V Frontal and Lat - XRAY USE ONLY 11:06:31 CDT CPT-98967 EKG Trac and Interp - XRAY USE ONLY 11:31:43 CDT 08/26 CPT-J3420 Vitamin B12 1000mcg (Cyanocobalamin) 08:10:26 PEST CONTROL SUPERVISOR 04/12 CPT-35328 Abx/Therapy Injection 08:10:26 PEST CONTROL SUPERVISOR CPT-G0438 Initial Annual Wellness Exam 19:01:01 PEST CONTROL SUPERVISOR CPT-J3420 Vitamin B12 1000mcg (Cyanocobalamin) 16:57:46 CDT 08/14 CPT-05891 Recombivax HB Injection Suspension 5 MCG/0.5ML 08:37:50 PEST CONTROL SUPERVISOR CPT-42724 Immunization Single Admin 08:37:50 PEST CONTROL SUPERVISOR CPT-J3420 Vitamin B12 1000mcg (Cyanocobalamin) 08:32:16 PEST CONTROL SUPERVISOR 03/11 CPT-39898 Abx/Therapy Injection 08:32:16 PEST CONTROL SUPERVISOR CPT-66324 Chest 2V Frontal and Lat 11:46:38 PEST CONTROL SUPERVISOR CPT-24880 Venipuncture Draw Fee 09:12:45 PEST CONTROL SUPERVISOR CPT-J3420 Vitamin B12 1000mcg (Cyanocobalamin) 08:50:15 PEST CONTROL SUPERVISOR 02/08 CPT-56002 Abx/Therapy Injection 08:50:15 PEST CONTROL SUPERVISOR CPT-Cryo Cryotherapy 10:19:35 PEST CONTROL SUPERVISOR CPT-000 Give Appropriate Flu Vaccine 09:22:16 CDT CPT-J3420 Vitamin B12 1000mcg (Cyanocobalamin) 19:08:57 CDT 01/11 CPT-40571 Abx/Therapy Injection 19:08:57 CDT CPT-J3420 Vitamin B12 1000mcg (Cyanocobalamin) 08:19:08 CDT 12/11 CPT-94493 Abx/Therapy Injection 08:19:08 CDT CPT-J3420 Vitamin B12 1000mcg (Cyanocobalamin) 14:48:00 CDT 11/09 CPT-25043 Abx/Therapy Injection 14:47:59 CDT CPT-J3420 Vitamin B12 1000mcg (Cyanocobalamin) 08:34:04 CDT 10/09 CPT-79777 Abx/Therapy Injection 08:34:04 CDT CPT-J3420 Vitamin B12 1000mcg (Cyanocobalamin) 09:18:52 CDT 09/11 CPT-77613 Abx/Therapy Injection 09:18:52 CDT CPT-J3420 Vitamin B12 1000mcg (Cyanocobalamin) 08:35:44 CDT 09/04 CPT-21220 Abx/Therapy Injection 08:35:44 CDT CPT-78308 Immunization Single Admin 11:07:16 CDT CPT-18660 Hepatitis B adult IM 11:07:16 CDT CPT-J3420 Vitamin B12 1000mcg (Cyanocobalamin) 11:00:49 CDT 08/28 CPT-J1040 Depo Medrol 80 mg (Methyl Prednisolone Acetate) 11:00: 49 CDT CPT-81324 Abx/Therapy Injection 11:00:49 CDT CPT-J1040 Depo Medrol 80 mg (Methyl Prednisolone Acetate) 09:16: 23 CDT CPT-J3420 Vitamin B12 1000mcg (Cyanocobalamin) 08:27:05 CDT 08/20 CPT-06475 Abx/Therapy Injection 08:27:05 CDT CPT-85635 Recombivax HB Injection Suspension 5 MCG/0.5ML 10:00:41 CDT CPT-87033 Administration single or combination vaccine inc oral 10 :00:41 CDT CPT-67918 Sono transvag pelvis non OB uterus ovaries cervix 16:36: 57 CDT CPT-58898 LS spine comp w obliq 09:50:55 PEST CONTROL SUPERVISOR CPT-40193 Abd compl w upright 09:50:55 PEST CONTROL SUPERVISOR CPT-J1100 Decadron 4mg (Dexamethasone) 15:51:24 PEST CONTROL SUPERVISOR CPT-J1030 Depo Medrol 40 mg (Methyl Prednisolone Acetate) 15:51: 24 PEST CONTROL SUPERVISOR CPT-72676 Abx/Therapy Injection 15:51:24 PEST CONTROL SUPERVISOR CPT-J1100 Decadron 4mg (Dexamethasone) 15:26:33 PEST CONTROL SUPERVISOR CPT-J1030 Depo Medrol 40 mg (Methyl Prednisolone Acetate) 15:26: 33 PEST CONTROL SUPERVISOR CPT-38716 Sono retroperitoneal complete kidneys and bladder 17:15: 30 CDT CPT-51759 Abd compl w upright 16:09:25 CDT CPT-J1100 Decadron 8mg (Dexamethasone) 17:07:57 CDT CPT-53711 Abx/Therapy Injection 17:07:57 CDT CPT-J1100 Decadron 8mg (Dexamethasone) 16:55:24 CDT CPT-22230 Chest 2V Frontal and Lat 16:32:44 CDT
--- OUTSIDE RECORDS SUMMARY | 2016-11-04 16:56 | XMS REPORT ---
Author Author [facility] Medical Staff Organization [facility] Address [address] [place], [place] [id number] Phone [phone] Care Team Providers Care Canned Food Reconditioning Inspector Name Role Phone DENICE OCHOA MD, PP [phone] Summary purpose TRANSITION OF CARE AUTO GENERATION [...]
--- OUTSIDE RECORDS SUMMARY | 2016-11-04 16:56 | XMS REPORT | Clinical Summary ---
Author Author Admin, Dereck Organization [facility] Address Unknown Phone Unavailable Allergies, Adverse Reactions, [...] Active Ahmet Carbajal MD Generalized anxiety disorder End Stapler well woman exam V72.31 Active Suzan Boo [...] MD Health screening ICD-V70.0 Inactive Suzan Boo TITLE ABSTRACTOR Sinus tachycardia ICD-427.89 Inactive Suzan Boo TITLE ABSTRACTOR Smoker/tobacco use disorder-smoking cessation discussed ICD-305.1 Inactive [...] TABS 1 by mouth for yeast FLUCONAZOLE 07726666020 Active Suzan Boo APRN Active BACTRIM DS 800-160 MG TABS 1 twice a day SULFAMETHOXAZOLE- TRIMETHOPRIM 41899543109 Active Suzan Boo APRN Active EQ NICOTINE 21 MG/24HR TRANS PT24 Apply daily to stop smoking NICOTINE 49964960395 No Longer Active Suzan Boo APRN Active PREDNISONE 10 MG TABS 2 daily for 5 days then 1 daily for 5 days PREDNISONE 12110541352 No Longer Active Suzan Boo APRN Active LEVAQUIN 500 MG TABS 1 daily for infection LEVOFLOXACIN 73681049706 No Longer Active Suzan Boo APRN Active TROPICAMIDE 0.5 % OPHTH SOLN 1 drop PRN eye spasms TROPICAMIDE 64332711176 No Longer Active Suzan Boo APRN Active PREDNISONE 20 MG TAB 1 tablet daily x 4 days PREDNISONE 96261188316 No Longer Active Suzan Boo APRN Active ACETAMINOPHEN-CODEINE 120-12 MG/5ML SOLN 5 ml by mouth every 4-6 hours if needed for cough ACETAMINOPHEN-CODEINE 01514071727 No Longer Active Suzan Boo APRN Active KEFLEX 500 MG CAP 1 po qid CEPHALEXIN 66835500615 No Longer Active Suzan Boo APRN Active FLOVENT HFA 110 MCG/ACT AERO 2 puffs inhaled b.i.d. FLUTICASONE PROPIONATE HFA 84900801169 Active Renzo Thornton DO Active RISPERDAL 4 MG ORAL TABS 1 tab at bedtime RISPERIDONE 02822153745 Active Samantha Stephan RMA Active TESSALON PERLES 100 MG CAPS 1 three times a day as needed for cough BENZONATATE 48573324278 Active Suzan Boo APRN Active ZOFRAN 4 MG TABS 1 po q6hr PRN Nausea ONDANSETRON HCL No Longer Active Suzan Boo APRN Active FLUTICASONE PROPIONATE 50 MCG/ACT SUSP 2 sprays each nostril daily before bed. FLUTICASONE PROPIONATE 90165976985 No Longer Active Suzan Boo APRN Active ASPIRIN 325 MG ORAL TABS 1 tab q.d ASPIRIN 15070072245 No Longer Active Suzan Boo APRN Active HALOPERIDOL 10 MG ORAL TABS 1 tab q.d HALOPERIDOL 81699610851 No Longer Active Suzan Boo APRN Active GUAIFENESIN-CODEINE 100-10 MG/5ML SYRP 5ml every 4 to 6 hours as needed for cough GUAIFENESIN-CODEINE 21480120588 No Longer Active Suzan Boo APRN Active ZITHROMAX Z-EARNEST 250 MG TABS 2 today and then 1 daily for 4 days AZITHROMYCIN 69920757290 No Longer Active Suzan Boo APRN Active CLONAZEPAM 1 MG ORAL TABS 1 twice a day and an additional 1 tablet every other day as needed for pseudoseizures or anxiety CLONAZEPAM 80127596074 Active Ahmet Carbajal MD Active HYDROCODONE-ACETAMINOPHEN 5-325 MG ORAL TABS 1 tab two times a day HYDROCODONE-ACETAMINOPHEN 84504733510 No Longer Active Ahmet Carbajal MD Active LAMICTAL 100 MG ORAL TABS 1 tab 2 times qd. LAMOTRIGINE 26990327825 Active Ahmet Carbajal MD Active PREDNISONE 20 MG TABS 2 daily for 5 days then 1 daily for 5 days PREDNISONE 81607174172 No Longer Active Ahmet Carbajal MD Active FLUTICASONE PROPIONATE 50 MCG/ACT SUSP 1 to 2 sprays each nostril daily for allergies FLUTICASONE PROPIONATE 80042338934 Active Tila Valenzuela Active BENADRYL 25 MG CAP 4 po at bedtime for insomnia DIPHENHYDRAMINE HCL 89137721682 No Longer Active Ahmet Carbajal MD Active ADVAIR DISKUS 250-50 MCG/DOSE INH AEPB 1 puff twice a day for asthma FLUTICASONE-SALMETEROL 33394542148 No Longer Active Ahmet Carbajal MD Active KLONOPIN 1 MG ORAL TABS 1 tab po TID CLONAZEPAM 38441296062 No Longer Active Ahmet Carbajal MD Active ABILIFY MAINTENA 400 MG IM SUSR 400mg injection every 26 days ARIPIPRAZOLE 71401417884 No Longer Active Ahmet Carbajal MD Active TRAMADOL HCL 50 MG TABS 1/2-1 tab TID PRN TRAMADOL HCL 97721351757 No Longer Active Ahmet Carbajal MD Active BACTRIM DS 800-160 MG TABS 1 twice a day SULFAMETHOXAZOLE- TRIMETHOPRIM 95847715107 No Longer Active Ahmet Carbajal MD Active PROAIR HFA 108 (90 BASE) MCG/ACT AERS 2 puffs four times a day as needed 2015 ALBUTEROL SULFATE 18432411021 Active Ahmet Carbajal MD Active MONISTAT 7 COMBO PACK WOODROW 100 & 2 MG-% (9GM) VAG KIT 1 applicatorful per vagina q pm x 7 MICONAZOLE NITRATE 60518270024 No Longer Active Amhet Carbajal MD Active FLAGYL 500 MG TAB 1 tablet by mouth bid METRONIDAZOLE 53494338325 No Longer Active Ahmet Carbajal MD Active OXYCODONE HCL ER 10 MG ORAL T12A 1/2 tab by mouth every 4 hours prn OXYCODONE HCL 79622001457 No Longer Active Ahmet Carbajal MD Active METHYLPREDNISOLONE 4 MG ORAL TABS po daily METHYLPREDNISOLONE 93016866509 No Longer Active Ahmet Carbajal MD Active LEVOFLOXACIN 500 MG ORAL TABS po daily LEVOFLOXACIN 76186214617 No Longer Active Ahmet Carbajal MD Active VIIBRYD 10 MG ORAL TABS Take 1 tablet once a day VILAZODONE HCL 14852350943 No Longer Active Ahmet Carbajal MD Active TOPAMAX 50 MG ORAL TABS 1 tab twice daily TOPIRAMATE 51679987947 No Longer Active Ahmet Carbajal MD Active DICLOFENAC SODIUM 50 MG TBEC 1 tablet by mouth four times daily PRN Pain 2015 DICLOFENAC SODIUM 63074509603 No Longer Active Ahmet Carbajal MD Active ADZENYS XR-ODT 6.3 MG ORAL TBED 1 tab po daily for ADHD AMPHETAMINE 46751281259 No Longer Active Ahmet Carbajal MD Active CHANTIX 1 MG TABS 1 twice a day to help quit smoking VARENICLINE TARTRATE 19188899384 No Longer Active Dipika Burgos MD Active CHANTIX STARTING MONTH EARNEST 0.5 MG X 11 & 1 MG X 42 TABS take as directed 2015 VARENICLINE TARTRATE 72676581895 No Longer Active Dipika Burgos MD Active TESSALON PERLES 100 MG CAP 1 to 2 tablets by mouth 3 times daily as needed for cough BENZONATATE 98397305293 No Longer Active Luigi Martínez APRN Active IMITREX 50 MG ORAL TABS 0.5 po x 1 PRN Headache. May repeat dose x 1 in 2 hours if needed SUMATRIPTAN SUCCINATE 99372965692 Active Ahmet Carbajal MD Active HYDROCODONE-ACETAMINOPHEN 5-325 MG TABS 1 to 2 four times a day as needed for pain use until can be seen by specialist HYDROCODONE- ACETAMINOPHEN 93363413231 No Longer Active Vishal Hui MD Active PROAIR HFA 108 (90 BASE) MCG/ACT AERS 2 puffs four times a day as needed 2015 ALBUTEROL SULFATE 13337680868 No Longer Active Vishal Hui MD Active PREDNISONE 20 MG TABS 2 daily for 5 days then 1 daily for 5 days PREDNISONE 33412241544 No Longer Active Vishal Hui MD Active ZITHROMAX Z-EARNEST 250 MG TABS 2 today and then 1 daily for 4 days AZITHROMYCIN 13242608137 No Longer Active Vishal Hui MD Active DICLOFENAC POTASSIUM TABS Take 1 tablet twice a day (pt. is not sure of the dose.) DICLOFENAC POTASSIUM TABS 13118166617 No Longer Active Vishal Hui MD Active VERAPAMIL HCL ER 120 MG ORAL CR-TABS Take 1 tablet by mouth twice a day. VERAPAMIL HCL 37216511472 Active Vishal Hui MD Active FLAGYL 500 MG TAB 1 tablet by mouth bid METRONIDAZOLE 81045529560 No Longer Active Vishal Hui MD Active VALIUM 5 MG TAB Take 1-2 tablets daily DIAZEPAM 04608161892 No Longer Active Fabiola Johnson APRN Active METOPROLOL TARTRATE 25 MG ORAL TABS 1/2 tablet twice daily for heart rate and blood pressure METOPROLOL TARTRATE 90489181336 No Longer Active Fabiola Johnson APRN Active MIRALAX ORAL POWD 17GMS DAILY IN WATER POLYETHYLENE GLYCOL 3350 07403486435 Active Berthaelif Kirby TAMARA Active MIRALAX PACK 1 po qd PRN Constipation POLYETHYLENE GLYCOL 3350 10340844783 No Longer Active Ahmet Carbajal MD Active MINIPRESS 2 MG CAPS 4 cap po at night PRAZOSIN HCL 15244604552 No Longer Active Ahmet Carbajal MD Active PIROXICAM 20 MG CAPS 1 cap po qd PRN Pain PIROXICAM 58552651103 No Longer Active Ahmet Carbajal MD Active TRAMADOL HCL 50 MG TABS 1-2 po TID PRN Pain TRAMADOL HCL 20271951826 No Longer Active Ahmet Carbajal MD Active METOPROLOL TARTRATE 50 MG TAB 1 po bid METOPROLOL TARTRATE 37011013286 No Longer Active Ahmet Carbajal MD Active ABILIFY 15 MG ORAL TABS 1 tab daily ARIPIPRAZOLE 51051988332 No Longer Active Ahmet Carbajal MD Active PROZAC 20 MG ORAL CAPS 1 tab daily FLUOXETINE HCL 77962729264 No Longer Active Ahmet Carbajal MD Active AMBIEN 5 MG ORAL TABS 1 tab at bedtime ZOLPIDEM TARTRATE 66776994782 No Longer Active Ahmet Carbajal MD Active PREDNISONE 20 MG TAB 2 tabs daily for 4 days, 1 tab daily for 4 days, 1/2 tab daily for 4 days PREDNISONE 05535034542 No Longer Active Ahmet Carbajal MD Active KEFLEX 500 MG CAP 1 po TID x 10 days CEPHALEXIN 39857222136 No Longer Active Vishal Hui MD Active SAPHRIS 5 MG SUBL 1 po bid ASENAPINE MALEATE 41029746208 No Longer Active Luigi Martínez APRN Active LATUDA 80 MG TABS Take one by mouth daily LURASIDONE HCL 05846587915 No Longer Active Jillina Fralebron TITLE ABSTRACTOR Active AMLODIPINE BESYLATE 5 MG TABS 1 tablet by mouth daily AMLODIPINE BESYLATE 03898250205 No Longer Active Tatajanee Mauricio NORIEGA Active AMITRIPTYLINE HCL 100 MG TAB one at hs AMITRIPTYLINE HCL 76978097967 No Longer Active Vishal Hui MD Active TRAZODONE HCL 100 MG TAB take 1 at bedtime TRAZODONE HCL 89204805486 No Longer Active Vishal Hui MD Active VYVANSE 40 MG CAPS 1 daily, LISDEXAMFETAMINE DIMESYLATE 55769202364 No Longer Active Vishal Hui MD Active IBUPROFEN 600 MG TAB 1 po TID PRN IBUPROFEN 29856970863 No Longer Active Vishal Hui MD Active PROZAC 20 MG CAP Take one by mouth daily FLUOXETINE HCL 42959779160 No Longer Active Vishal Hui MD Active BACTRIM DS 800-160 MG TABS 1 pill by mouth twice daily SULFAMETHOXAZOLE-TRIMETHOPRIM 77047507554 No Longer Active Sahara Rodriguez MD PhD Active DIFLUCAN 150 MG TAB 1 tablet by mouth daily FLUCONAZOLE 91354479027 No Longer Active Vishal Hui MD Active TIZANIDINE HCL 4 MG TABS 1 po q6hr PRN Muscle Spasm/Back Pain TIZANIDINE HCL 98716172377 Active Vishal Hui MD Active CLINDAMYCIN HCL 150 MG CAPS 1 four times a day CLINDAMYCIN HCL 10435612207 No Longer Active Neeraj Collins MD Active KEFLEX 500 MG ORAL CAPS 1 cap QID by mouth CEPHALEXIN 89031696455 No Longer Active Neeraj Collins MD Active DIFLUCAN 150 MG TABS 1 pill every other day x 2 doses FLUCONAZOLE 65451039602 No Longer Active Sahara Rodriguez MD PhD Active MELATONIN 3 MG CAPS 2 po q hs MELATONIN 77540743494 No Longer Active Sahara Rodriguez MD PhD Active MULTIVITAMINS CAPS Take one by mouth daily MULTIPLE VITAMIN 13857618961 No Longer Active Sahara Rodriguez MD PhD Active BACTRIM DS 800-160 MG TAB 1 tab by mouth twice daily TRIMETHOPRIM-SULFAMETHOXAZOLE 77641923878 No Longer Active Sahara Rodriguez MD PhD Active [facility] PROBIOTIC ORAL CHEW 2 daily po PROBIOTIC PRODUCT 13905245342 No Longer Active Sahara Rodriguez MD PhD Active BACTRIM DS 800-160 MG TABS 1 po BID x 7 days SULFAMETHOXAZOLE-TRIMETHOPRIM 38728037953 No Longer Active Vishal Hui MD Active CHANTIX STARTING MONTH EARNEST 0.5 MG X 11 & 1 MG X 42 TABS 0.5mg daily for 3 days , then 0.5mg BID for 4 days, then 1mg BID VARENICLINE TARTRATE 64577001981 No Longer Active TAMARA Gray Active VERAPAMIL HCL CR 120 MG TAB CR 1 po bid VERAPAMIL HCL 31725031314 No Longer Active Vishal Hui MD Active METOPROLOL SUCCINATE 50 MG TB24 1 tablet by mouth daily METOPROLOL SUCCINATE 43605439653 No Longer Active Vishal Hui MD Active SAPHRIS 10 MG SUBL 1 tab po bid ASENAPINE MALEATE 26568859246 No Longer Active Vishal Hui MD Active LISINOPRIL 20 MG TABS 1 tab po qd LISINOPRIL 25824286738 No Longer Active Vishal Hui MD Active LATUDA 20 MG TABS Take one by mouth daily LURASIDONE HCL 69346131213 No Longer Active Vishal Hui MD Active TRAZODONE HCL 50 MG TABS 1/2 tab po qd prn for anxiety TRAZODONE HCL 45319789838 No Longer Active Vishal Hui MD Active OMEPRAZOLE 20 MG TBEC 1 po q a.m. 30min prior to first food intake OMEPRAZOLE 54904194726 Active TAMARA Casey Active RANITIDINE HCL 150 MG CAPS 1 twice a day RANITIDINE HCL 68872618610 Active Pacooral Messilebron NORIEGA Active LINZESS 290 MCG CAPS Take one by mouth daily LINACLOTIDE 40863967465 No Longer Active Vishal Hui MD Active SAPHRIS 5 MG SUBL 1 tab po qd ASENAPINE MALEATE 70908439002 No Longer Active Vishal Hui MD Active ZALEPLON 10 MG CAPS 1 cap po every other night ZALEPLON 15558326900 No Longer Active Vishal Hui MD Active LYRICA 50 MG CAPS 1 tab po TID PREGABALIN 61326062391 No Longer Active Vishal Hui MD Active LORATADINE 10 MG TABS 1 tab po qd LORATADINE 06666448444 No Longer Active Vishal Hui MD Active VERAPAMIL HCL ER 180 MG CR-TABS 1 tab po bid VERAPAMIL HCL 73921450819 No Longer Active Vishal Hui MD Active MIRALAX POWD 1 capfull once daily POLYETHYLENE GLYCOL 3350 35363500626 No Longer Active Vishal Hui MD Active PREDNISONE 20 MG TABS 1 tab po qd PREDNISONE 24366315947 No Longer Active Renzo Thornton DO Active LEVOFLOXACIN 500 MG TABS 1 tab po qd LEVOFLOXACIN 66001123864 No Longer Active Renzo Thornton DO Active BUSPIRONE HCL 15 MG TABS 1 tab po TID BUSPIRONE HCL 30156612606 No Longer Active Renzo Thornton DO Active BENZTROPINE MESYLATE 1 MG TABS 1 tab po qd BENZTROPINE MESYLATE 63377818313 No Longer Active Renzo Thornton DO Active ATENOLOL 25 MG TABS 1 tab po qd ATENOLOL 30832565423 No Longer Active Renzo Thornton DO Active ESCITALOPRAM OXALATE 20 MG TABS 1 tab po qd ESCITALOPRAM OXALATE 10605409259 No Longer Active Renzo Thornton DO Active ADVAIR DISKUS 250-50 MCG/DOSE AEPB 1 puff BID FLUTICASONE-SALMETEROL 87153370645 No Longer Active Renzo Thornton DO Active PREDNISONE 20 MG TAB 2 tabs daily for 3 days, 1 tab daily for 3 days, 1/2 tab daily for 2 days PREDNISONE 15099421592 No Longer Active Vishal Hui MD Active CEFDINIR 300 MG CAPS by mouth twice a day CEFDINIR 97826420120 No Longer Active Vishal Hui MD Active LANSOPRAZOLE 30 MG CPDR 1 cap po qd LANSOPRAZOLE 96596412975 No Longer Active Vishal Hui MD Active BACLOFEN 20 MG TABS 1 tab po tid BACLOFEN 05507529540 No Longer Active Vishal Hui MD Active ADVAIR DISKUS 250-50 MCG/DOSE AEPB 1 puff BID ADVAIR DISKUS 250-50 MCG/DOSE AEPB FLUTICASONE-SALMETEROL Inactive ESCITALOPRAM OXALATE 20 MG TABS 1 tab po qd ESCITALOPRAM OXALATE 20 MG TABS 958017 ESCITALOPRAM OXALATE Inactive ATENOLOL 25 MG TABS 1 tab po qd ATENOLOL 25 MG TABS 247636 ATENOLOL Inactive BENZTROPINE MESYLATE 1 MG TABS 1 tab po qd BENZTROPINE MESYLATE 1 MG TABS 946347 BENZTROPINE MESYLATE Inactive BUSPIRONE HCL 15 MG TABS 1 tab po TID BUSPIRONE HCL 15 MG TABS 351612 BUSPIRONE HCL Inactive LEVOFLOXACIN 500 MG TABS 1 tab po qd LEVOFLOXACIN 500 MG TABS 730475 LEVOFLOXACIN Inactive PREDNISONE 20 MG TABS 1 tab po qd PREDNISONE 20 MG TABS 394043 PREDNISONE Inactive MIRALAX POWD 1 capfull once daily MIRALAX POWD 289963 POLYETHYLENE GLYCOL 3350 Inactive VERAPAMIL HCL ER 180 MG CR-TABS 1 tab po bid VERAPAMIL HCL ER 180 MG CR-TABS VERAPAMIL HCL Inactive LORATADINE 10 MG TABS 1 tab po qd LORATADINE 10 MG TABS 775917 LORATADINE Inactive LYRICA 50 MG CAPS 1 tab po TID LYRICA 50 MG CAPS PREGABALIN Inactive ZALEPLON 10 MG CAPS 1 cap po every other night ZALEPLON 10 MG CAPS 483048 ZALEPLON Inactive SAPHRIS 5 MG SUBL 1 tab po qd SAPHRIS 5 MG SUBL ASENAPINE MALEATE Inactive TRAZODONE HCL 50 MG TABS 1/2 tab po qd prn for anxiety TRAZODONE HCL 50 MG TABS 738516 TRAZODONE HCL Inactive LATUDA 20 MG TABS Take one by mouth daily LATUDA 20 MG TABS LURASIDONE HCL Inactive LISINOPRIL 20 MG TABS 1 tab po qd LISINOPRIL 20 MG TABS 050425 LISINOPRIL Inactive SAPHRIS 10 MG SUBL 1 [...] twice daily BACTRIM DS 800-160 MG TAB 687778 TRIMETHOPRIM-SULFAMETHOXAZOLE Inactive MULTIVITAMINS CAPS Take one by mouth daily MULTIVITAMINS CAPS MULTIPLE VITAMIN Inactive MELATONIN 3 MG CAPS 2 po q hs MELATONIN 3 MG CAPS 166774 MELATONIN Inactive KEFLEX 500 MG ORAL CAPS 1 cap QID by mouth KEFLEX 500 MG ORAL CAPS 471629 CEPHALEXIN Inactive CLINDAMYCIN HCL 150 MG CAPS 1 four times a day CLINDAMYCIN HCL 150 MG CAPS 908438 CLINDAMYCIN HCL Inactive DIFLUCAN 150 MG TAB 1 tablet by mouth daily DIFLUCAN 150 MG TAB 840520 FLUCONAZOLE Inactive PROZAC 20 MG CAP Take one by mouth daily PROZAC 20 MG CAP 213650 FLUOXETINE HCL Inactive IBUPROFEN 600 MG TAB 1 po TID PRN IBUPROFEN 600 MG TAB 240780 IBUPROFEN Inactive VYVANSE 40 MG CAPS 1 daily, VYVANSE 40 MG CAPS LISDEXAMFETAMINE DIMESYLATE Inactive TRAZODONE HCL 100 MG TAB take 1 at bedtime TRAZODONE HCL 100 MG TAB 851004 TRAZODONE HCL Inactive AMITRIPTYLINE HCL 100 MG TAB one at hs AMITRIPTYLINE HCL 100 MG TAB 512909 AMITRIPTYLINE HCL Inactive AMLODIPINE BESYLATE 5 MG TABS 1 tablet by mouth daily AMLODIPINE BESYLATE 5 MG TABS 136292 AMLODIPINE BESYLATE Inactive LATUDA 80 MG TABS Take one by mouth daily LATUDA 80 MG TABS LURASIDONE HCL Inactive SAPHRIS 5 MG SUBL 1 po bid SAPHRIS 5 MG SUBL ASENAPINE MALEATE Inactive PREDNISONE 20 MG TAB 2 tabs daily for 4 days, 1 tab daily for 4 days, 1/2 tab daily for 4 days PREDNISONE 20 MG TAB 914628 PREDNISONE Inactive AMBIEN 5 MG ORAL TABS 1 tab at bedtime AMBIEN 5 MG ORAL TABS 121634 ZOLPIDEM TARTRATE Inactive PROZAC 20 MG ORAL CAPS 1 tab daily PROZAC 20 MG ORAL CAPS 161605 FLUOXETINE HCL Inactive ABILIFY 15 MG ORAL TABS 1 tab daily ABILIFY 15 MG ORAL TABS 293718 ARIPIPRAZOLE Inactive METOPROLOL TARTRATE 50 MG TAB 1 po bid METOPROLOL TARTRATE 50 MG TAB 268564 METOPROLOL TARTRATE Inactive TRAMADOL HCL 50 MG TABS 1-2 po TID PRN Pain TRAMADOL HCL 50 MG TABS 475936 TRAMADOL HCL Inactive PIROXICAM 20 MG CAPS 1 cap po qd PRN Pain PIROXICAM 20 MG CAPS 019117 PIROXICAM Inactive MINIPRESS 2 MG CAPS 4 cap po at night MINIPRESS 2 MG CAPS 145400 PRAZOSIN HCL Inactive MIRALAX PACK 1 po qd PRN Constipation MIRALAX PACK 010947 POLYETHYLENE GLYCOL 3350 Inactive METOPROLOL TARTRATE 25 MG ORAL TABS 1/2 tablet twice daily for heart rate and blood pressure METOPROLOL TARTRATE 25 MG ORAL TABS 226997 METOPROLOL TARTRATE Inactive VALIUM 5 MG TAB Take 1-2 tablets daily VALIUM 5 MG TAB 106176 DIAZEPAM Inactive FLAGYL 500 MG TAB 1 tablet by mouth bid FLAGYL 500 MG TAB 331596 METRONIDAZOLE Inactive DICLOFENAC POTASSIUM TABS Take 1 tablet twice a day (pt. is not sure of the dose.) DICLOFENAC POTASSIUM TABS DICLOFENAC POTASSIUM TABS Inactive ZITHROMAX Z-EARNEST 250 MG TABS 2 today and then 1 daily for 4 days ZITHROMAX Z-EARNEST 250 MG TABS 6839902 AZITHROMYCIN Inactive PREDNISONE 20 MG TABS 2 daily for 5 days then 1 daily for 5 days PREDNISONE 20 MG TABS 953793 PREDNISONE Inactive PROAIR HFA 108 (90 BASE) MCG/ACT AERS 2 puffs four times a day as needed 2015 PROAIR HFA 108 (90 BASE) MCG/ACT AERS ALBUTEROL SULFATE Inactive HYDROCODONE-ACETAMINOPHEN 5-325 MG TABS 1 to 2 four times a day as needed for pain use until can be seen by specialist HYDROCODONE- ACETAMINOPHEN 5-325 MG TABS 458777 HYDROCODONE-ACETAMINOPHEN Inactive TESSALON PERLES 100 MG CAP 1 to 2 tablets by mouth 3 times daily as needed for cough TESSALON PERLES 100 MG CAP 680922 BENZONATATE Inactive CHANTIX STARTING MONTH EARNEST 0.5 [...] Pain 2015 DICLOFENAC SODIUM 50 MG TBEC 880753 DICLOFENAC SODIUM Inactive TOPAMAX 50 MG ORAL TABS 1 tab twice daily TOPAMAX 50 MG ORAL TABS 572322 TOPIRAMATE Inactive VIIBRYD 10 MG ORAL TABS Take 1 tablet once a day VIIBRYD 10 MG ORAL TABS VILAZODONE HCL Inactive LEVOFLOXACIN 500 MG ORAL TABS po daily LEVOFLOXACIN 500 MG ORAL TABS 164426 LEVOFLOXACIN Inactive METHYLPREDNISOLONE 4 MG ORAL TABS po daily METHYLPREDNISOLONE 4 MG ORAL TABS 694221 METHYLPREDNISOLONE Inactive OXYCODONE HCL ER 10 MG ORAL T12A 1/2 tab by mouth every 4 hours prn OXYCODONE HCL ER 10 MG ORAL T12A OXYCODONE HCL Inactive FLAGYL 500 MG TAB 1 tablet by mouth bid FLAGYL 500 MG TAB 584352 METRONIDAZOLE Inactive MONISTAT 7 COMBO PACK WOODROW 100 & 2 MG-% (9GM) VAG KIT 1 applicatorful per vagina q pm x 7 MONISTAT 7 COMBO PACK WOODROW 100 & 2 MG-% (9GM) VAG KIT MICONAZOLE NITRATE Inactive BACTRIM DS 800-160 MG TABS 1 twice a day BACTRIM DS 800-160 MG TABS 363873 SULFAMETHOXAZOLE-TRIMETHOPRIM Inactive TRAMADOL HCL 50 MG TABS 1/2-1 tab TID PRN TRAMADOL HCL 50 MG TABS 212359 TRAMADOL HCL Inactive ABILIFY MAINTENA 400 MG IM SUSR 400mg injection every 26 days ABILIFY MAINTENA 400 MG IM SUSR ARIPIPRAZOLE Inactive KLONOPIN 1 MG ORAL TABS 1 tab po TID KLONOPIN 1 MG ORAL TABS 720178 CLONAZEPAM Inactive ADVAIR DISKUS 250-50 MCG/DOSE INH AEPB 1 puff twice a day for asthma ADVAIR DISKUS 250-50 MCG/DOSE INH AEPB FLUTICASONE- SALMETEROL Inactive BENADRYL 25 MG CAP 4 po at bedtime for insomnia BENADRYL 25 MG CAP DIPHENHYDRAMINE HCL Inactive PREDNISONE 20 MG TABS 2 daily for 5 days then 1 daily for 5 days PREDNISONE 20 MG TABS 009065 PREDNISONE Inactive HYDROCODONE-ACETAMINOPHEN 5-325 MG ORAL TABS 1 tab two times a day HYDROCODONE-ACETAMINOPHEN 5-325 MG ORAL TABS 347891 HYDROCODONE-ACETAMINOPHEN Inactive ZITHROMAX Z-EARNEST 250 MG TABS 2 today and then 1 daily for 4 days ZITHROMAX Z-EARNEST 250 MG TABS 9491546 AZITHROMYCIN Inactive GUAIFENESIN-CODEINE 100-10 MG/5ML SYRP 5ml every 4 to 6 hours as needed for cough GUAIFENESIN-CODEINE 100-10 MG/5ML SYRP 911574 GUAIFENESIN-CODEINE Inactive HALOPERIDOL 10 MG ORAL TABS 1 tab q.d HALOPERIDOL 10 MG ORAL TABS 890112 HALOPERIDOL Inactive ASPIRIN 325 MG ORAL TABS 1 tab q.d ASPIRIN 325 MG ORAL TABS 169230 ASPIRIN Inactive FLUTICASONE PROPIONATE 50 MCG/ACT SUSP 2 sprays each nostril daily before bed. FLUTICASONE PROPIONATE 50 MCG/ACT SUSP 8421832 FLUTICASONE PROPIONATE Inactive ZOFRAN 4 MG TABS 1 po q6hr PRN Nausea ZOFRAN 4 MG TABS 806614 ONDANSETRON HCL Inactive KEFLEX 500 MG CAP 1 po qid KEFLEX 500 MG CAP 898773 CEPHALEXIN Inactive ACETAMINOPHEN-CODEINE 120-12 MG/5ML SOLN 5 ml by mouth every 4-6 hours if needed for cough ACETAMINOPHEN-CODEINE 120-12 MG/5ML SOLN 283442 ACETAMINOPHEN-CODEINE Inactive PREDNISONE 20 MG TAB 1 tablet daily x 4 days PREDNISONE 20 MG TAB 697993 PREDNISONE Inactive TROPICAMIDE 0.5 % OPHTH SOLN 1 drop PRN eye spasms TROPICAMIDE 0.5 % OPHTH SOLN 791241 TROPICAMIDE Inactive LEVAQUIN 500 MG TABS 1 daily for infection LEVAQUIN 500 MG TABS 584825 LEVOFLOXACIN Inactive PREDNISONE 10 MG TABS 2 daily for 5 days then 1 daily for 5 days PREDNISONE 10 MG TABS 750410 PREDNISONE Inactive EQ NICOTINE 21 MG/24HR TRANS PT24 Apply daily to stop smoking EQ NICOTINE 21 MG/24HR TRANS PT24 NICOTINE Inactive CEFDINIR 300 MG CAPS by mouth twice a day CEFDINIR 300 MG CAPS 974725 CEFDINIR Inactive PREDNISONE 20 MG TAB 2 tabs daily for 3 days, 1 tab daily for 3 days, 1/2 tab daily for 2 days PREDNISONE 20 MG TAB 637866 PREDNISONE Inactive BACTRIM DS 800-160 MG TABS 1 po BID x 7 days BACTRIM DS 800-160 MG TABS 19820521 SULFAMETHOXAZOLE-TRIMETHOPRIM Inactive DIFLUCAN 150 MG TABS 1 pill every other day x 2 doses DIFLUCAN 150 MG TABS 303551 FLUCONAZOLE Inactive BACTRIM DS 800-160 MG TABS 1 pill by mouth twice daily BACTRIM DS 800-160 MG TABS 19820521 SULFAMETHOXAZOLE-TRIMETHOPRIM Inactive KEFLEX 500 MG CAP 1 po TID x 10 days KEFLEX 500 MG CAP 627823 CEPHALEXIN Inactive Advance Directives Directive Description Start [...] % 11.0-15.0 platelet count 443 THOUSAND/UL 10*3/mm3 785-632 3272/03/01 mean platelet volume 8.2 fL 7.5-12.5 Lab [...] 369 10^3/MM^3 10*3/mm3 142-424 Lab Report: Chlamydia/GC APTIMA/[id number] - Lab chlamydia DNA probe NOT DETECTED NOT DETECTED Lab Report: Chlamydia/GC APTIMA/[id number] - Microbiology Neisseria gonorrhoeae DNA probe NOT DETECTED NOT DETECTED Lab Report: Chlamydia/GC APTIMA/[id number], Urinalysis, Complete, with Reflex ... - Lab chlamydia DNA probe NOT DETECTED NOT DETECTED Lab Report: Chlamydia/GC APTIMA/[id number], Urinalysis, Complete, with Reflex ... - Microbiology Neisseria gonorrhoeae DNA probe NOT DETECTED NOT DETECTED Lab Report: Chlamydia/GC APTIMA/[id number], Urinalysis, Complete, with Reflex ... - Urinalysis microalbumin/total urine volume 2 mg/L Units converted. See lab report for original value. microalbumin/creatinine ratio, urine 9 MCG/MG CREAT mg/L <30 Lab Report: Comp. Metabolic Panel - Chemistry sodium, serum 142 mmol/L [id number] 6864/06/08 carbon dioxide, venous blood 27.6 mmol/L 21.0-32.0 potassium, serum 4.0 mmol/L 3.5-5.2 chloride, serum 105 mmol/L 98-107 blood glucose 95 mg/dL 65-110 urea nitrogen, blood 8 mg/dL 7-18 creatinine, serum 0.75 mg/dL 0.55-1.30 alanine aminotransferase (SGPT), serum 49 U/L 12-78 aspartate aminotransferase (SGOT), serum 28 U/L 15-37 calcium, serum 9.4 mg/dL 8.5-10.1 bilirubin, serum, total 0.30 mg/dL 0.00-1.00 sodium, serum 140 mmol/L 362-760 4913/08/08 carbon dioxide, venous blood 33.7 mmol/L 21.0-32.0 [...] mg/dL Encounters Code Encounter Date Provider Facility CPT-17967 Level 3 Est. Patient 10:29:30 CDT Suzan Boo [facility] CPT-35078 Level 3 Est. Patient 11:04:38 CDT Renzo Thornton [facility] CPT-95610 Level 3 Est. 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 Patient 15:28:23 [employer] R[employer] LO[employer]ER Suzan Boo [facility] CPT-76154 Level 4 Est. Patient 10:20:54 [employer] LO[employer]ER Suzan Boo [facility] CPT-46096 Level 3 Est. Patient 11:47:37 [employer] ROUND LOGGER [facility] CPT-77421 Level 3 Est. Patient 10:40:11 [employer] LO[employer]ER [facility] CPT-51605 Level 3 Est. Patient 15:07:06 [employer] R[employer] LO[employer]ER [facility]er[facility] CPT-90338 Level 4 Est. Patient 14:45:00 [employer] R[employer] LO[employer]ER Ah[facility] CPT-94129 Level 3 Est. Patient 13:59:59 CDT Luigi Martínez [facility] CPT-60439 Level 3 Est. Patient 18:18:53 CDT [facility] CPT-17724 Level 3 Est. Patient 15:50:44 CDT Vishal H[facility] CPT-14212 Level 3 Est. Patient 11:36:17 CDT Ahmet Carbajal [facility] CPT-02661 Level 3 Est. Patient 13:29:16 CDT Vishal H[facility] CPT-05326 Level 3 Est. Patient 14:27:52 CDT Neeraj [facility] CPT-83244 Level 3 Est. Patient 08:56:03 CDT Luigi Martínez [facility] CPT-91983 Level 4 Est. Patient 12:11:48 CDT Fabiola Johnson [facility] CPT-63254 Level 3 New Patient 16:53:37 CDT [facility] CPT-88638 Level 3 Est. Patient 11:25:49 CDT Renzo [facility] CPT-46308 Level 3 Est. Patient 15:22:01 CDT Ahmet Carbajal [facility] CPT-42670 Level 4 Est. Patient 09:00:51 [employer]ER Vishal Hui [facility] CPT-70025 Level 3 Est. Patient 11:37:33 [employer] LO[employer]ER Vishal Hui MD [facility] CPT-37208 Level 3 Est. Patient 08:41:09 [employer]ER Vishal Hui [facility] CPT-26954 Level 4 Est. Patient 10:19:35 [employer]ER Vishal Hui MD [facility] CPT-97772 Level 3 Est. Patient 13:35:45 CDT Vishal Hui MD [facility] CPT-21378 Level 4 Est. Patient 10:08:37 CDT Vishal Hui MD [facility] CPT-88512 Level 3 Est. Patient 11:22:10 CDT Vishal Hui MD [facility] CPT-39337 Level 3 Est. Patient 11:03:32 CDT Sahara Rodriguez MD[facility] CPT-14289 Level 3 Est. Patient 09:41:35 CDT Vishal H[facility] CPT-53280 Level 3 Est. Patient 12:00:41 CDT Neeraj Collins MD [facility] CPT-95927 Level 3 Est. Patient 09:16:24 CDT Vishal Hui MD [facility] CPT-17647 Level 4 Est. Patient 13:59:09 CDT Neeraj Collins MD [facility]-64635 Level 3 Est. Patient 15:19:43 CDT Renzo Thornton DO [facility] CPT-50059 Level 3 Est. Patient 18:10:26 CDT Sahara Rodriguez MD [facility]-87931 Level 3 Est. Patient 14:49:50 CDT Vishal Hui MD [facility]-70114 Level 4 Est. Patient 18:41:46 CDT Neeraj Collins MD [facility]-26540 Level 4 Est. Patient 09:18:38 [employer]ER V[facility]al [facility] CPT-56764 Level 3 Est. Patient 14:43:55 [employer]ER Vishal Hui MD [facility] CPT-60984 Level 3 Est. Patient 15:26:33 [employer] R[employer] LO[employer]ER Sahara Rodriguez MD PhD [facility]-19053 Level 3 Est. Patient 10:32:14 [employer]ER Vishal Hui MD [facility] CPT-32115 Level 3 Est. Patient 15:12:52 [employer] R[employer] LO[employer]ER Vishal Hui MD [facility] CPT-14592 Level 4 Est. Patient 09:19:27 CDT Vishal Hui MD [facility]-19575 Level 3 Est. Patient 15:53:00 CDT Renzo Thornton [facility]-31599 Level 3 Est. Patient 15:50:30 CDT Renzo Thornton DO [facility] CPT-47821 Level 3 Est. Patient 16:55:24 CDT Vishal Hui MD [facility] Procedures Code Procedure Name Date Entry Date Standard Description CPT-62225 Smoking Cessation counseling 11:15:58 [employer]ER CPT-G0439 Subsequent Annual Wellness Exam 09:30:58 [employer] CPT-29054 TSH - LAB USE ONLY 08:50:26 [employer] CPT-90672 CBC - LAB USE ONLY 08:50:26 [employer] CPT-90290 Venipuncture Draw Fee 08:50:26 [employer]ER CPT-25107 Abx/Therapy Injection 17:34:30 [employer] LO[employer]ER CPT-47104 Nexplanon Removal with Reinsertion 14:09:32 CDT CPT-J7307 Nexplanon (Implant) 14:09:32 CDT CPT-OV Office Visit 14:09:32 CDT CPT-31705 UA w micro - LAB USE ONLY 16:21:13 CDT CPT-27421 Wet Mount - LAB USE ONLY 16:21:13 CDT CPT-92417 First Vx - Ix admin for Medicare patients 14:37:47 CDT CPT-64963 Fluzone Preservative Free Intramuscular Suspension 14:37 :47 CDT CPT-24974 Abx/Therapy Injection 13:54:22 CDT CPT-00933 Abx/Therapy Injection 08:47:09 CDT CPT-91305 Abx/Therapy Injection 13:29:56 CDT CPT-53636 Abx/Therapy Injection 08:36:16 CDT CPT-47389 Wet Mount - LAB USE ONLY 17:44:58 CDT CPT-42157 UA w micro - LAB USE ONLY 17:44:58 CDT CPT-35466 CMP - LAB USE ONLY 17:44:58 CDT CPT-69904 Venipuncture Draw Fee 17:44:58 CDT CPT-65224 Cervical Min 4V - XRAY USE ONLY 09:01:40 CDT CPT-01063 Chest 2V Frontal and Lat - XRAY USE ONLY 11:06:31 CDT CPT-12103 EKG Trac and Interp - XRAY USE ONLY 11:31:43 CDT 08/26 CPT-J3420 Vitamin B12 1000mcg (Cyanocobalamin) 08:10:26 [employer] LO[employer]ER 04/12 CPT-01837 Abx/Therapy Injection 08:10:26 [employer] LO[employer]ER CPT-G0438 Initial Annual Wellness Exam 19:01:01 [employer] LO[employer]ER CPT-J3420 Vitamin B12 1000mcg (Cyanocobalamin) 16:57:46 CDT 08/14 CPT-81090 Recombivax HB Injection Suspension 5 MCG/0.5ML 08:37:50 [employer] LO[employer]ER CPT-75032 Immunization Single Admin 08:37:50 [employer] LO[employer]ER CPT-J3420 Vitamin B12 1000mcg (Cyanocobalamin) 08:32:16 [employer] LOGGER 03/11 CPT-15347 Abx/Therapy Injection 08:32:16 [employer] LOGGER CPT-17224 Chest 2V Frontal and Lat 11:46:38 [employer] LO[employer]ER CPT-64243 Venipuncture Draw Fee 09:12:45 [employer] LOGGER CPT-J3420 Vitamin B12 1000mcg (Cyanocobalamin) 08:50:15 [employer] LOGGER 02/08 CPT-51969 Abx/Therapy Injection 08:50:15 [employer] LOGGER CPT-Cryo Cryotherapy 10:19:35 [employer] R[employer] LOGGER CPT-000 Give Appropriate Flu Vaccine 09:22:16 CDT CPT-J3420 Vitamin B12 1000mcg (Cyanocobalamin) 19:08:57 CDT 01/11 CPT-96305 Abx/Therapy Injection 19:08:57 CDT CPT-J3420 Vitamin B12 1000mcg (Cyanocobalamin) 08:19:08 CDT 12/11 CPT-92160 Abx/Therapy Injection 08:19:08 CDT CPT-J3420 Vitamin B12 1000mcg (Cyanocobalamin) 14:48:00 CDT 11/09 CPT-11578 Abx/Therapy Injection 14:47:59 CDT CPT-J3420 Vitamin B12 1000mcg (Cyanocobalamin) 08:34:04 CDT 10/09 CPT-73842 Abx/Therapy Injection 08:34:04 CDT CPT-J3420 Vitamin B12 1000mcg (Cyanocobalamin) 09:18:52 CDT 09/11 CPT-88226 Abx/Therapy Injection 09:18:52 CDT CPT-J3420 Vitamin B12 1000mcg (Cyanocobalamin) 08:35:44 CDT 09/04 CPT-71368 Abx/Therapy Injection 08:35:44 CDT CPT-96375 Immunization Single Admin 11:07:16 CDT CPT-87293 Hepatitis B adult IM 11:07:16 CDT CPT-J3420 Vitamin B12 1000mcg (Cyanocobalamin) 11:00:49 CDT 08/28 CPT-J1040 Depo Medrol 80 mg (Methyl Prednisolone Acetate) 11:00: 49 CDT CPT-04630 Abx/Therapy Injection 11:00:49 CDT CPT-J1040 Depo Medrol 80 mg (Methyl Prednisolone Acetate) 09:16: 23 CDT CPT-J3420 Vitamin B12 1000mcg (Cyanocobalamin) 08:27:05 CDT 08/20 CPT-24127 Abx/Therapy Injection 08:27:05 CDT CPT-17949 Recombivax HB Injection Suspension 5 MCG/0.5ML 10:00:41 CDT CPT-05915 Administration single or combination vaccine inc oral 10 :00:41 CDT CPT-96387 Sono transvag pelvis non OB uterus ovaries cervix 16:36: 57 CDT CPT-08796 LS spine comp w obliq 09:50:55 [employer]ER CPT-38796 Abd compl w upright 09:50:55 [employer] LO[employer]ER CPT-J1100 Decadron 4mg (Dexamethasone) 15:51:24 [employer] LOGGER CPT-J1030 Depo Medrol 40 mg (Methyl Prednisolone Acetate) 15:51: 24 [employer] LOGGER CPT-49832 Abx/Therapy Injection 15:51:24 [employer] ROUND LOGGER CPT-J1100 Decadron 4mg (Dexamethasone) 15:26:33 [employer] R[employer] LOGGER CPT-J1030 Depo Medrol 40 mg (Methyl Prednisolone Acetate) 15:26: 33 [employer] R[employer] LOGGER CPT-34522 Sono retroperitoneal complete kidneys and bladder 17:15: 30 CDT CPT-39900 Abd compl w upright 16:09:25 CDT CPT-J1100 Decadron 8mg (Dexamethasone) 17:07:57 CDT CPT-70864 Abx/Therapy Injection 17:07:57 CDT CPT-J1100 Decadron 8mg (Dexamethasone) 16:55:24 CDT CPT-41132 Chest 2V Frontal and Lat 16:32:44 CDT
--- OUTSIDE RECORDS SUMMARY | 2016-11-04 16:59 | XMS REPORT | Clinical Summary ---
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 Juliet [facility] Dependence on other enabling machines and devices [...] breath Nocturnal hypoxia 799.02 Active Fabiola Johnson [facility] Hypoxemia Neck pain 723.1 Resolved Vishal Hui [...] a day as needed 2015 ALBUTEROL SULFATE 62992503330 Active Ahmet Carbajal MD Active EQ NICOTINE 21 MG/24HR TRANS PT24 Apply daily to stop smoking NICOTINE 77041777268 Active Ahmet Carbajal MD Active BACTRIM DS 800-160 MG TABS 1 twice a day SULFAMETHOXAZOLE- TRIMETHOPRIM 84568746084 Active Ahmet Carbajal MD Active ADVAIR DISKUS 250-50 MCG/DOSE INH AEPB 1 puff twice a day for asthma FLUTICASONE-SALMETEROL 74081236480 Active Ahmet Carbajal MD Active MONISTAT 7 COMBO PACK WOODROW 100 & 2 MG-% (9GM) VAG KIT 1 applicatorful per vagina q pm x 7 MICONAZOLE NITRATE 58134988427 No Longer Active Ahmet Carbajal MD Active FLAGYL 500 MG TAB 1 tablet by mouth bid METRONIDAZOLE 93330360891 No Longer Active Ahmet Carbajal MD Active OXYCODONE HCL ER 10 MG ORAL T12A 1/2 tab by mouth every 4 hours prn OXYCODONE HCL 35274336874 No Longer Active Ahmet Carbajal MD Active METHYLPREDNISOLONE 4 MG ORAL TABS po daily METHYLPREDNISOLONE 76139010302 No Longer Active Ahmet Carbajal MD Active LEVOFLOXACIN 500 MG ORAL TABS po daily LEVOFLOXACIN 21121976698 No Longer Active Ahmet Carbajal MD Active VIIBRYD 10 MG ORAL TABS Take 1 tablet once a day VILAZODONE HCL 36988660854 No Longer Active Ahmet Carbajal MD Active TOPAMAX 50 MG ORAL TABS 1 tab twice daily TOPIRAMATE 92159959684 No Longer Active Ahmet Carbajal MD Active DICLOFENAC SODIUM 50 MG TBEC 1 tablet by mouth four times daily PRN Pain 2015 DICLOFENAC SODIUM 65183389546 No Longer Active Ahmet Carbajal MD Active ADZENYS XR-ODT 6.3 MG ORAL TBED 1 tab po daily for ADHD AMPHETAMINE 67230007008 No Longer Active Ahmet Carbajal MD Active CHANTIX 1 MG TABS 1 twice a day to help quit smoking VARENICLINE TARTRATE 87242105145 No Longer Active Dipika Burgos MD Active CHANTIX STARTING MONTH EARNEST 0.5 MG X 11 & 1 MG X 42 TABS take as directed 2015 VARENICLINE TARTRATE 21517628397 No Longer Active Dipika Burgos MD Active TESSALON PERLES 100 MG CAP 1 to 2 tablets by mouth 3 times daily as needed for cough BENZONATATE 47853859434 No Longer Active Luigi Martínez [facility] Active ABILIOMAR MAINTENA 400 MG IM SUSR 400mg injection every 26 days ARIPIPRAZOLE 26357918961 Active Silvia Casey [employer]AGE [employer]TER Active IMITREX 50 MG ORAL TABS 0.5 po x 1 PRN Headache. May repeat dose x 1 in 2 hours if needed SUMATRIPTAN SUCCINATE 88365529686 Active Vishal Hui MD Active HYDROCODONE-ACETAMINOPHEN 5-325 MG TABS 1 to 2 four times a day as needed for pain use until can be seen by specialist HYDROCODONE- ACETAMINOPHEN 13107271833 No Longer Active Vishal Hui MD Active PROAIR HFA 108 (90 BASE) MCG/ACT AERS 2 puffs four times a day as needed 2015 ALBUTEROL SULFATE 72267444746 No Longer Active Vishal Hui MD Active PREDNISONE 20 MG TABS 2 daily for 5 days then 1 daily for 5 days PREDNISONE 91965360337 No Longer Active Vishal Hui MD Active ZITHROMAX Z-EARNEST 250 MG TABS 2 today and then 1 daily for 4 days AZITHROMYCIN 26674447481 No Longer Active Vishal Hui MD Active DICLOFENAC POTASSIUM TABS Take 1 tablet twice a day (pt. is not sure of the dose.) DICLOFENAC POTASSIUM TABS 36665439727 No Longer Active Vishal Hui MD Active VERAPAMIL HCL ER 120 MG ORAL CR-TABS Take 1 tablet by mouth twice a day. VERAPAMIL HCL 52459447882 Active Vishal Hui MD Active FLAGYL 500 MG TAB 1 tablet by mouth bid METRONIDAZOLE 53588005533 No Longer Active Vishal Hui MD Active FLUTICASONE PROPIONATE 50 MCG/ACT SUSP 2 sprays each nostril daily before bed. FLUTICASONE PROPIONATE 02513972297 Active Fabiola Johnson APRN Active BENADRYL 25 MG CAP 4 po at bedtime for insomnia DIPHENHYDRAMINE HCL 10662563734 Active Fabiola Johnson APRN Active KLONOPIN 1 MG ORAL TABS 1 tab po TID CLONAZEPAM 29847804461 Active Fabiola Johnson APRN Active VALIUM 5 MG TAB Take 1-2 tablets daily DIAZEPAM 71368717797 No Longer Active Fabiola Johnson APRN Active METOPROLOL TARTRATE 25 MG ORAL TABS 1/2 tablet twice daily for heart rate and blood pressure METOPROLOL TARTRATE 19063048451 No Longer Active Fabiola Johnson APRN Active MIRALAX ORAL POWD 17GMS DAILY IN WATER POLYETHYLENE GLYCOL 3350 21281808016 Active Vishal Hui MD Active MIRALAX PACK 1 po qd PRN Constipation POLYETHYLENE GLYCOL 3350 84641381742 No Longer Active Ahmet Carbajal MD Active MINIPRESS 2 MG CAPS 4 cap po at night PRAZOSIN HCL 48892060919 No Longer Active Ahmet Carbajal MD Active PIROXICAM 20 MG CAPS 1 cap po qd PRN Pain PIROXICAM 71543118996 No Longer Active Ahmet Carbajal MD Active TRAMADOL HCL 50 MG TABS 1-2 po TID PRN Pain TRAMADOL HCL 46699161366 No Longer Active Ahmet Carbajal MD Active METOPROLOL TARTRATE 50 MG TAB 1 po bid METOPROLOL TARTRATE 52909631627 No Longer Active Ahmet Carbajal MD Active ABILIFY 15 MG ORAL TABS 1 tab daily ARIPIPRAZOLE 87367808730 No Longer Active Ahmet Carbajal MD Active PROZAC 20 MG ORAL CAPS 1 tab daily FLUOXETINE HCL 64695583452 No Longer Active Ahmet Carbajal MD Active AMBIEN 5 MG ORAL TABS 1 tab at bedtime ZOLPIDEM TARTRATE 56209957087 No Longer Active Ahmet Carbajal MD Active PREDNISONE 20 MG TAB 2 tabs daily for 4 days, 1 tab daily for 4 days, 1/2 tab daily for 4 days PREDNISONE 08424756207 No Longer Active Ahmet Carbajal MD Active KEFLEX 500 MG CAP 1 po TID x 10 days CEPHALEXIN 32382303580 No Longer Active Vishal Hui MD Active SAPHRIS 5 MG SUBL 1 po bid ASENAPINE MALEATE 27225293732 No Longer Active Pacolljanee Martínez APRN Active LATUDA 80 MG TABS Take one by mouth daily LURASIDONE HCL 69577766475 No Longer Active Jillina Fralebron [facility] Active AMLODIPINE BESYLATE 5 MG TABS 1 tablet by mouth daily AMLODIPINE BESYLATE 41406826884 No Longer Active Jillina Mauricio NORIEGA Active AMITRIPTYLINE HCL 100 MG TAB one at hs AMITRIPTYLINE HCL 14307940834 No Longer Active Vishal Hui MD Active TRAZODONE HCL 100 MG TAB take 1 at bedtime TRAZODONE HCL 18920039849 No Longer Active Vishal Hui MD Active VYVANSE 40 MG CAPS 1 daily, LISDEXAMFETAMINE DIMESYLATE 92290270264 No Longer Active Vishal Hui MD Active IBUPROFEN 600 MG TAB 1 po TID PRN IBUPROFEN 11269983934 No Longer Active Vishal Hui MD Active PROZAC 20 MG CAP Take one by mouth daily FLUOXETINE HCL 50930815724 No Longer Active Vishal Hui MD Active ZOFRAN 4 MG TABS 1 po q6hr PRN Nausea ONDANSETRON HCL Active Vishal Hui MD Active BACTRIM DS 800-160 MG TABS 1 pill by mouth twice daily SULFAMETHOXAZOLE-TRIMETHOPRIM 13838275949 No Longer Active Sahara Rodriguez MD PhD Active DIFLUCAN 150 MG TAB 1 tablet by mouth daily FLUCONAZOLE 76753115921 No Longer Active Vishal Hui MD Active TIZANIDINE HCL 4 MG TABS 1 po q6hr PRN Muscle Spasm/Back Pain TIZANIDINE HCL 22371987038 Active Vishal Hui MD Active CLINDAMYCIN HCL 150 MG CAPS 1 four times a day CLINDAMYCIN HCL 79523959992 No Longer Active Neeraj Collins MD Active KEFLEX 500 MG ORAL CAPS 1 cap QID by mouth CEPHALEXIN 49477065277 No Longer Active Neeraj Collins MD Active DIFLUCAN 150 MG TABS 1 pill every other day x 2 doses FLUCONAZOLE 53716963289 No Longer Active Sahara Rodriguez MD PhD Active MELATONIN 3 MG CAPS 2 po q hs MELATONIN 03616542699 No Longer Active Sahara Rodriguez MD PhD Active MULTIVITAMINS CAPS Take one by mouth daily MULTIPLE VITAMIN 92236214411 No Longer Active Sahara Rodriguez MD PhD Active BACTRIM DS 800-160 MG TAB 1 tab by mouth twice daily TRIMETHOPRIM-SULFAMETHOXAZOLE 72956444789 No Longer Active Sahara Rodriguez MD PhD Active [facility] PROBIOTIC ORAL CHEW 2 daily po PROBIOTIC PRODUCT 91044659686 No Longer Active Sahara Rodriguez MD PhD Active BACTRIM DS 800-160 MG TABS 1 po BID x 7 days SULFAMETHOXAZOLE-TRIMETHOPRIM 13670095482 No Longer Active Vishal Hui MD Active CHANTIX STARTING MONTH EARNEST 0.5 MG X 11 & 1 MG X 42 TABS 0.5mg daily for 3 days , then 0.5mg BID for 4 days, then 1mg BID VARENICLINE TARTRATE 46915809103 No Longer Active TAMARA Gray Active VERAPAMIL HCL CR 120 MG TAB CR 1 po bid VERAPAMIL HCL 83663645039 No Longer Active Vishal Hui MD Active METOPROLOL SUCCINATE 50 MG TB24 1 tablet by mouth daily METOPROLOL SUCCINATE 22743171796 No Longer Active Vishal Hui MD Active SAPHRIS 10 MG SUBL 1 tab po bid ASENAPINE MALEATE 21844524444 No Longer Active Vishal Hui MD Active LISINOPRIL 20 MG TABS 1 tab po qd LISINOPRIL 68751982898 No Longer Active Vishal Hui MD Active LATUDA 20 MG TABS Take one by mouth daily LURASIDONE HCL 01569409039 No Longer Active Vishal Hui MD Active TRAZODONE HCL 50 MG TABS 1/2 tab po qd prn for anxiety TRAZODONE HCL 83598410081 No Longer Active Vishal Hui MD Active OMEPRAZOLE 20 MG TBEC 1 po q a.m. 30min prior to first food intake OMEPRAZOLE 24076458379 Active Vishal Hui MD Active RANITIDINE HCL 150 MG CAPS 1 twice a day RANITIDINE HCL 86913336251 Active Luigi Martínez APRN Active LINZESS 290 MCG CAPS Take one by mouth daily LINACLOTIDE 46072911130 No Longer Active Vishal Hui MD Active SAPHRIS 5 MG SUBL 1 tab po qd ASENAPINE MALEATE 07620842591 No Longer Active Vishal Hui MD Active ZALEPLON 10 MG CAPS 1 cap po every other night ZALEPLON 10366828064 No Longer Active Vishal Hui MD Active LYRICA 50 MG CAPS 1 tab po TID PREGABALIN 42884752203 No Longer Active Vishal Hui MD Active LORATADINE 10 MG TABS 1 tab po qd LORATADINE 71114524518 No Longer Active Vishal Hui MD Active VERAPAMIL HCL ER 180 MG CR-TABS 1 tab po bid VERAPAMIL HCL 75914747304 No Longer Active Vishal Hui MD Active MIRALAX POWD 1 capfull once daily POLYETHYLENE GLYCOL 3350 93128149769 No Longer Active Vishal Hui MD Active PREDNISONE 20 MG TABS 1 tab po qd PREDNISONE 60606849462 No Longer Active Renzo Thornton DO Active LEVOFLOXACIN 500 MG TABS 1 tab po qd LEVOFLOXACIN 01724058360 No Longer Active Renzo Thornton DO Active BUSPIRONE HCL 15 MG TABS 1 tab po TID BUSPIRONE HCL 68529070423 No Longer Active Renzo Thornton DO Active BENZTROPINE MESYLATE 1 MG TABS 1 tab po qd BENZTROPINE MESYLATE 43122327635 No Longer Active Renzo Thornton DO Active ATENOLOL 25 MG TABS 1 tab po qd ATENOLOL 13151693389 No Longer Active Renzo Thornton DO Active ESCITALOPRAM OXALATE 20 MG TABS 1 tab po qd ESCITALOPRAM OXALATE 82352649009 No Longer Active Renzo Thornton DO Active ADVAIR DISKUS 250-50 MCG/DOSE AEPB 1 puff BID FLUTICASONE-SALMETEROL 98460471293 No Longer Active Renzo Thornton DO Active PREDNISONE 20 MG TAB 2 tabs daily for 3 days, 1 tab daily for 3 days, 1/2 tab daily for 2 days PREDNISONE 90497237032 No Longer Active Vishal Hui MD Active CEFDINIR 300 MG CAPS by mouth twice a day CEFDINIR 67572331630 No Longer Active Vishal Hui MD Active LANSOPRAZOLE 30 MG CPDR 1 cap po qd LANSOPRAZOLE 36371574005 No Longer Active Vishal Hui MD Active BACLOFEN 20 MG TABS 1 tab po tid BACLOFEN 02118031145 No Longer Active Vishal Hui MD Active ADVAIR DISKUS 250-50 MCG/DOSE AEPB 1 puff BID ADVAIR DISKUS 250-50 MCG/DOSE AEPB FLUTICASONE-SALMETEROL Inactive ESCITALOPRAM OXALATE 20 MG TABS 1 tab po qd ESCITALOPRAM OXALATE 20 MG TABS 357345 ESCITALOPRAM OXALATE Inactive ATENOLOL 25 MG TABS 1 tab po qd ATENOLOL 25 MG TABS 447852 ATENOLOL Inactive BENZTROPINE MESYLATE 1 MG TABS 1 tab po qd BENZTROPINE MESYLATE 1 MG TABS 678335 BENZTROPINE MESYLATE Inactive BUSPIRONE HCL 15 MG TABS 1 tab po TID BUSPIRONE HCL 15 MG TABS 239490 BUSPIRONE HCL Inactive LEVOFLOXACIN 500 MG TABS 1 tab po qd LEVOFLOXACIN 500 MG TABS 004242 LEVOFLOXACIN Inactive PREDNISONE 20 MG TABS 1 tab po qd PREDNISONE 20 MG TABS 392731 PREDNISONE Inactive MIRALAX POWD 1 capfull once daily MIRALAX POWD 075860 POLYETHYLENE GLYCOL 3350 Inactive VERAPAMIL HCL ER 180 MG CR-TABS 1 tab po bid VERAPAMIL HCL ER 180 MG CR-TABS VERAPAMIL HCL Inactive LORATADINE 10 MG TABS 1 tab po qd LORATADINE 10 MG TABS 048345 LORATADINE Inactive LYRICA 50 MG CAPS 1 tab po TID LYRICA 50 MG CAPS PREGABALIN Inactive ZALEPLON 10 MG CAPS 1 cap po every other night ZALEPLON 10 MG CAPS 988000 ZALEPLON Inactive SAPHRIS 5 MG SUBL 1 tab po qd SAPHRIS 5 MG SUBL ASENAPINE MALEATE Inactive TRAZODONE HCL 50 MG TABS 1/2 tab po qd prn for anxiety TRAZODONE HCL 50 MG TABS 675519 TRAZODONE HCL Inactive LATUDA 20 MG TABS Take one by mouth daily LATUDA 20 MG TABS LURASIDONE HCL Inactive LISINOPRIL 20 MG TABS 1 tab po qd LISINOPRIL 20 MG TABS 642487 LISINOPRIL Inactive SAPHRIS 10 MG SUBL 1 [...] twice daily BACTRIM DS 800-160 MG TAB 886433 TRIMETHOPRIM-SULFAMETHOXAZOLE Inactive MULTIVITAMINS CAPS Take one by mouth daily MULTIVITAMINS CAPS MULTIPLE VITAMIN Inactive MELATONIN 3 MG CAPS 2 po q hs MELATONIN 3 MG CAPS 206269 MELATONIN Inactive KEFLEX 500 MG ORAL CAPS 1 cap QID by mouth KEFLEX 500 MG ORAL CAPS 778714 CEPHALEXIN Inactive CLINDAMYCIN HCL 150 MG CAPS 1 four times a day CLINDAMYCIN HCL 150 MG CAPS 19740326 CLINDAMYCIN HCL Inactive DIFLUCAN 150 MG TAB 1 tablet by mouth daily DIFLUCAN 150 MG TAB 19751126 FLUCONAZOLE Inactive PROZAC 20 MG CAP Take one by mouth daily PROZAC 20 MG CAP 819690 FLUOXETINE HCL Inactive IBUPROFEN 600 MG TAB 1 po TID PRN IBUPROFEN 600 MG TAB 611435 IBUPROFEN Inactive VYVANSE 40 MG CAPS 1 daily, VYVANSE 40 MG CAPS LISDEXAMFETAMINE DIMESYLATE Inactive TRAZODONE HCL 100 MG TAB take 1 at bedtime TRAZODONE HCL 100 MG TAB 672439 TRAZODONE HCL Inactive AMITRIPTYLINE HCL 100 MG TAB one at hs AMITRIPTYLINE HCL 100 MG TAB 585114 AMITRIPTYLINE HCL Inactive AMLODIPINE BESYLATE 5 MG TABS 1 tablet by mouth daily AMLODIPINE BESYLATE 5 MG TABS 666407 AMLODIPINE BESYLATE Inactive LATUDA 80 MG TABS Take one by mouth daily LATUDA 80 MG TABS LURASIDONE HCL Inactive SAPHRIS 5 MG SUBL 1 po bid SAPHRIS 5 MG SUBL ASENAPINE MALEATE Inactive PREDNISONE 20 MG TAB 2 tabs daily for 4 days, 1 tab daily for 4 days, 1/2 tab daily for 4 days PREDNISONE 20 MG TAB 453964 PREDNISONE Inactive AMBIEN 5 MG ORAL TABS 1 tab at bedtime AMBIEN 5 MG ORAL TABS 432038 ZOLPIDEM TARTRATE Inactive PROZAC 20 MG ORAL CAPS 1 tab daily PROZAC 20 MG ORAL CAPS 274444 FLUOXETINE HCL Inactive ABILIFY 15 MG ORAL TABS 1 tab daily ABILIFY 15 MG ORAL TABS 276006 ARIPIPRAZOLE Inactive METOPROLOL TARTRATE 50 MG TAB 1 po bid METOPROLOL TARTRATE 50 MG TAB 170899 METOPROLOL TARTRATE Inactive TRAMADOL HCL 50 MG TABS 1-2 po TID PRN Pain TRAMADOL HCL 50 MG TABS 786047 TRAMADOL HCL Inactive PIROXICAM 20 MG CAPS 1 cap po qd PRN Pain PIROXICAM 20 MG CAPS 524334 PIROXICAM Inactive MINIPRESS 2 MG CAPS 4 cap po at night MINIPRESS 2 MG CAPS 061627 PRAZOSIN HCL Inactive MIRALAX PACK 1 po qd PRN Constipation MIRALAX PACK 618620 POLYETHYLENE GLYCOL 3350 Inactive METOPROLOL TARTRATE 25 MG ORAL TABS 1/2 tablet twice daily for heart rate and blood pressure METOPROLOL TARTRATE 25 MG ORAL TABS 343272 METOPROLOL TARTRATE Inactive VALIUM 5 MG TAB Take 1-2 tablets daily VALIUM 5 MG TAB 970263 DIAZEPAM Inactive FLAGYL 500 MG TAB 1 tablet by mouth bid FLAGYL 500 MG TAB 113408 METRONIDAZOLE Inactive DICLOFENAC POTASSIUM TABS Take 1 tablet twice a day (pt. is not sure of the dose.) DICLOFENAC POTASSIUM TABS DICLOFENAC POTASSIUM TABS Inactive ZITHROMAX Z-EARNEST 250 MG TABS 2 today and then 1 daily for 4 days ZITHROMAX Z-EARNEST 250 MG TABS 4153529 AZITHROMYCIN Inactive PREDNISONE 20 MG TABS 2 daily for 5 days then 1 daily for 5 days PREDNISONE 20 MG TABS 671136 PREDNISONE Inactive PROAIR HFA 108 (90 BASE) MCG/ACT AERS 2 puffs four times a day as needed 2015 PROAIR HFA 108 (90 BASE) MCG/ACT AERS ALBUTEROL SULFATE Inactive HYDROCODONE-ACETAMINOPHEN 5-325 MG TABS 1 to 2 four times a day as needed for pain use until can be seen by specialist HYDROCODONE- ACETAMINOPHEN 5-325 MG TABS 805082 HYDROCODONE-ACETAMINOPHEN Inactive TESSALON PERLES 100 MG CAP 1 to 2 tablets by mouth 3 times daily as needed for cough TESSALON PERLES 100 MG CAP 641845 BENZONATATE Inactive CHANTIX STARTING MONTH EARNEST 0.5 [...] Pain 2015 DICLOFENAC SODIUM 50 MG TBEC 864683 DICLOFENAC SODIUM Inactive TOPAMAX 50 MG ORAL TABS 1 tab twice daily TOPAMAX 50 MG ORAL TABS 082483 TOPIRAMATE Inactive VIIBRYD 10 MG ORAL TABS Take 1 tablet once a day VIIBRYD 10 MG ORAL TABS VILAZODONE HCL Inactive LEVOFLOXACIN 500 MG ORAL TABS po daily LEVOFLOXACIN 500 MG ORAL TABS 929013 LEVOFLOXACIN Inactive METHYLPREDNISOLONE 4 MG ORAL TABS po daily METHYLPREDNISOLONE 4 MG ORAL TABS 271849 METHYLPREDNISOLONE Inactive OXYCODONE HCL ER 10 MG ORAL T12A 1/2 tab by mouth every 4 hours prn OXYCODONE HCL ER 10 MG ORAL T12A OXYCODONE HCL Inactive FLAGYL 500 MG TAB 1 tablet by mouth bid FLAGYL 500 MG TAB 897483 METRONIDAZOLE Inactive MONISTAT 7 COMBO PACK WOODROW 100 & 2 MG-% (9GM) VAG KIT 1 applicatorful per vagina q pm x 7 MONISTAT 7 COMBO PACK WOODROW 100 & 2 MG-% (9GM) VAG KIT MICONAZOLE NITRATE Inactive CEFDINIR 300 MG CAPS by mouth twice a day CEFDINIR 300 MG CAPS 972362 CEFDINIR Inactive PREDNISONE 20 MG TAB 2 tabs daily for 3 days, 1 tab daily for 3 days, 1/2 tab daily for 2 days PREDNISONE 20 MG TAB 732767 PREDNISONE Inactive BACTRIM DS 800-160 MG TABS 1 po BID x 7 days BACTRIM DS 800-160 MG TABS 19820521 SULFAMETHOXAZOLE-TRIMETHOPRIM Inactive DIFLUCAN 150 MG TABS 1 pill every other day x 2 doses DIFLUCAN 150 MG TABS 413618 FLUCONAZOLE Inactive BACTRIM DS 800-160 MG TABS 1 pill by mouth twice daily BACTRIM DS 800-160 MG TABS 19820521 SULFAMETHOXAZOLE-TRIMETHOPRIM Inactive KEFLEX 500 MG CAP 1 po TID x 10 days KEFLEX 500 MG CAP 458436 CEPHALEXIN Inactive Advance Directives Directive Description Start [...] % 11.6-14.8 platelet count 394 10^3/MM^3 10*3/mm3 114-223 2239/01/11 leukocyte count, blood 13.8 10^3/MM^3 10*3/mm3 4.6-10.2 [...] Panel - Chemistry sodium, serum 139 mmol/L 170-022 0123/12/03 carbon dioxide, venous blood 28.5 mmol/L 21.0-32.0 [...] 5.5 % 4.3-6.0 cholesterol, serum 159 mg/dL 046-419 2153/12/03 triglyceride, serum, fasting 118 mg/dL 30-200 HDL [...] 362 10^3/MM^3 10*3/mm3 142-424 Lab Report: Chlamydia/GC [id number] - Lab chlamydia DNA probe NOT DETECTED NOT DETECTED Lab Report: Chlamydia/GC APTIMA/[id number] - Microbiology Neisseria gonorrhoeae DNA probe NOT DETECTED NOT DETECTED Lab Report: Comp. Metabolic Panel - Chemistry sodium, serum 140 mmol/L 651-223 5152/08/08 carbon dioxide, venous blood 33.7 mmol/L 21.0-32.0 potassium, serum 5.0 mmol/L 3.5-5.2 chloride, serum 103 mmol/L 98-107 blood glucose 80 mg/dL 65-110 urea nitrogen, blood 13 mg/dL 7-18 creatinine, serum 0.88 mg/dL 0.55-1.30 alanine aminotransferase (SGPT), serum 54 U/L -78 aspartate aminotransferase (SGOT), serum 29 U/L 15-37 calcium, serum 9.7 mg/dL 8.5-10.1 bilirubin, serum, total 0.30 mg/dL 0.00-1.00 sodium, serum 139 mmol/L 924-225 5083/12/22 carbon dioxide, venous blood 26.8 mmol/L 21.0-32.0 potassium, serum 4.2 mmol/L 3.5-5.2 chloride, serum 103 mmol/L 98-107 blood glucose 115 mg/dL 65-110 urea nitrogen, blood 20 mg/dL 7-18 creatinine, serum 0.90 mg/dL 0.55-1.30 alanine aminotransferase (SGPT), serum 38 U/L 78 aspartate aminotransferase (SGOT), serum 19 U/L 15-37 calcium, serum 8.6 mg/dL 8.5-10.1 bilirubin, serum, total 0.30 mg/dL 0.00-1.00 sodium, serum 139 mmol/L 190-013 1399/01/11 carbon dioxide, venous blood 26.6 mmol/L 21.0-32.0 potassium, serum 4.1 mmol/L 3.5-5.2 chloride, serum 100 mmol/L 98-107 blood glucose 86 mg/dL 65-110 urea nitrogen, blood 16 mg/dL 7-18 creatinine, serum 1.00 mg/dL 0.55-1.30 alanine aminotransferase (SGPT), serum 48 U/L 12-78 aspartate aminotransferase (SGOT), serum 17 U/L 15-37 calcium, serum 9.1 mg/dL 8.5-10.1 bilirubin, serum, total 0.40 mg/dL 0.00-1.00 sodium, serum 142 mmol/L 448-108 8138/06/08 carbon dioxide, venous blood 27.6 mmol/L 21.0-32.0 [...] Rate - Chemistry sodium, serum 139 mmol/L 131-619 2283/12/11 carbon dioxide, venous blood 25.4 mmol/L 21.0-32.0 [...] mg/dL Encounters Code Encounter Date Provider Facility CPT-26634 Level 4 Est. Patient 14:45:00 SURVEY [employer]W CHIEF Ahmet Carbajal MD [facility] CPT-77544 Level 3 Est. Patient 13:59:59 CDT Luigi Martínez [facility] CPT-00196 Level 3 Est. Patient 18:18:53 CDT Neeraj Collins MD [facility] CPT-16768 Level 3 Est. Patient 15:50:44 CDT Vishal Hui MD [facility] CPT-52782 Level 3 Est. Patient 11:36:17 CDT Ahmet Carbajal MD [facility] CPT-54715 Level 3 Est. Patient 13:29:16 CDT Vishal Hui MD [facility] CPT-77558 Level 3 Est. Patient 14:27:52 CDT Neeraj Collins MD [facility] CPT-99378 Level 3 Est. Patient 08:56:03 CDT Luigi Martínez [facility] CPT-38259 Level 4 Est. Patient 12:11:48 CDT Fabiola Johnson [facility] CPT-66868 Level 3 New Patient 16:53:37 CDT Albert Caldera MD [facility] CPT-73260 Level 3 Est. Patient 11:25:49 CDT Renzo Thornton DO [facility] CPT-32732 Level 3 Est. Patient 15:22:01 CDT Ahmet Carbajal MD [facility] CPT-33183 Level 4 Est. Patient 09:00:51 SUR[employer]Y [employer]W CHIEF Vishal Hui MD [facility] CPT-59781 Level 3 Est. Patient 11:37:33 SURVEY [employer]W CHIEF Vishal Hui MD [facility] CPT-06888 Level 3 Est. Patient 08:41:09 SURVEY [employer]W CHIEF Vishal Hui MD [facility] CPT-28194 Level 4 Est. 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 CPT-20810 Level 3 Est. Patient 13:35:45 CDT Vishal Hui MD [facility] CPT-66763 Level 4 Est. Patient 10:08:37 CDT Vishal Hui MD [facility] CPT-54501 Level 3 Est. Patient 11:22:10 CDT Vishal Hui MD [facility] CPT-45277 Level 3 Est. Patient 11:03:32 CDT Sahara Rodriguez MD PhD [facility] CPT-80479 Level 3 Est. Patient 09:41:35 CDT Vishal Hui MD [facility] CPT-88670 Level 3 Est. Patient 12:00:41 CDT Neeraj Collins MD [facility] CPT-74296 Level 3 Est. Patient 09:16:24 CDT Vishal Hui MD [facility] CPT-09923 Level 4 Est. Patient 13:59:09 CDT Neeraj Collins MD [facility] CPT-70886 Level 3 Est. Patient 15:19:43 CDT Renzo Thornton DO [facility] CPT-24239 Level 3 Est. Patient 18:10:26 CDT Sahara Rodriguez MD PhD [facility] CPT-74724 Level 3 Est. Patient 14:49:50 CDT Vishal Hui MD [facility] CPT-47843 Level 4 Est. Patient 18:41:46 CDT Neeraj Collins MD [facility] CPT-28341 Level 4 Est. Patient 09:18:38 SURVEY [employer]W CHIEF Vishal Hui MD [facility] CPT-42021 Level 3 Est. Patient 14:43:55 SURVEY CREW CHIEF Vishal Hui MD [facility] CPT-89794 Level 3 Est. Patient 15:26:33 SURVEY CREW CHIEF Sahara Rodriguez MD [facility] CPT-96758 Level 3 Est. Patient 10:32:14 SURVEY CREW CHIEF Vishal Hui MD [facility] CPT-21875 Level 3 Est. Patient 15:12:52 SURVEY CREW CHIEF Vishal Hui MD [facility] CPT-25630 Level 4 Est. Patient 09:19:27 CDT Vishal Hui MD [facility] CPT-95314 Level 3 Est. Patient 15:53:00 CDT Renzo Thornton [facility] CPT-63504 Level 3 Est. Patient 15:50:30 CDT Renzo Thornton [facility] CPT-34405 Level 3 Est. Patient 16:55:24 CDT Vishal Hui MD [facility] Procedures Code Procedure Name Date Entry Date Standard Description CPT-91421 Abx/Therapy Injection 17:34:30 SUR[employer]Y [employer]W CHIEF CPT-30150 Nexplanon Removal with Reinsertion 14:09:32 CDT CPT-J7307 Nexplanon (Implant) 14:09:32 CDT CPT-OV Office Visit 14:09:32 CDT CPT-66363 UA w micro - LAB USE ONLY 16:21:13 CDT CPT-27633 Wet Mount - LAB USE ONLY 16:21:13 CDT CPT-81735 First Vx - Ix admin for Medicare patients 14:37:47 CDT CPT-18738 Fluzone Preservative Free Intramuscular Suspension 14:37 :47 CDT CPT-24852 Abx/Therapy Injection 13:54:22 CDT CPT-66763 Abx/Therapy Injection 08:47:09 CDT CPT-92376 Abx/Therapy Injection 13:29:56 CDT CPT-89878 Abx/Therapy Injection 08:36:16 CDT CPT-05104 Wet Mount - LAB USE ONLY 17:44:58 CDT CPT-91293 UA w micro - LAB USE ONLY 17:44:58 CDT CPT-65591 CMP - LAB USE ONLY 17:44:58 CDT CPT-73862 Venipuncture Draw Fee 17:44:58 CDT CPT-72645 Cervical Min 4V - XRAY USE ONLY 09:01:40 CDT CPT-35402 Chest 2V Frontal and Lat - XRAY USE ONLY 11:06:31 CDT CPT-70476 EKG Trac and Interp - XRAY USE ONLY 11:31:43 CDT 08/26 CPT-J3420 Vitamin B12 1000mcg (Cyanocobalamin) 08:10:26 SURVEY CREW CHIEF 04/12 CPT-80732 Abx/Therapy Injection 08:10:26 SURVEY CREW CHIEF CPT-G0438 Initial Annual Wellness Exam 19:01:01 SURVEY CREW CHIEF CPT-J3420 Vitamin B12 1000mcg (Cyanocobalamin) 16:57:46 CDT 08/14 CPT-76262 Recombivax HB Injection Suspension 5 MCG/0.5ML 08:37:50 SURVEY CREW CHIEF CPT-84422 Immunization Single Admin 08:37:50 SURVEY CREW CHIEF CPT-J3420 Vitamin B12 1000mcg (Cyanocobalamin) 08:32:16 SURVEY CREW CHIEF 03/11 CPT-08341 Abx/Therapy Injection 08:32:16 SURVEY CREW CHIEF CPT-35154 Chest 2V Frontal and Lat 11:46:38 SURVEY CREW CHIEF CPT-64588 Venipuncture Draw Fee 09:12:45 SURVEY CREW CHIEF CPT-J3420 Vitamin B12 1000mcg (Cyanocobalamin) 08:50:15 SURVEY CREW CHIEF 02/08 CPT-96901 Abx/Therapy Injection 08:50:15 SURVEY CREW CHIEF CPT-Cryo Cryotherapy 10:19:35 SURVEY CREW CHIEF CPT-000 Give Appropriate Flu Vaccine 09:22:16 CDT CPT-J3420 Vitamin B12 1000mcg (Cyanocobalamin) 19:08:57 CDT 01/11 CPT-81518 Abx/Therapy Injection 19:08:57 CDT CPT-J3420 Vitamin B12 1000mcg (Cyanocobalamin) 08:19:08 CDT 12/11 CPT-48577 Abx/Therapy Injection 08:19:08 CDT CPT-J3420 Vitamin B12 1000mcg (Cyanocobalamin) 14:48:00 CDT 11/09 CPT-17083 Abx/Therapy Injection 14:47:59 CDT CPT-J3420 Vitamin B12 1000mcg (Cyanocobalamin) 08:34:04 CDT 10/09 CPT-64186 Abx/Therapy Injection 08:34:04 CDT CPT-J3420 Vitamin B12 1000mcg (Cyanocobalamin) 09:18:52 CDT 09/11 CPT-52807 Abx/Therapy Injection 09:18:52 CDT CPT-J3420 Vitamin B12 1000mcg (Cyanocobalamin) 08:35:44 CDT 09/04 CPT-82818 Abx/Therapy Injection 08:35:44 CDT CPT-58076 Immunization Single Admin 11:07:16 CDT CPT-15431 Hepatitis B adult IM 11:07:16 CDT CPT-J3420 Vitamin B12 1000mcg (Cyanocobalamin) 11:00:49 CDT 08/28 CPT-J1040 Depo Medrol 80 mg (Methyl Prednisolone Acetate) 11:00: 49 CDT CPT-14482 Abx/Therapy Injection 11:00:49 CDT CPT-J1040 Depo Medrol 80 mg (Methyl Prednisolone Acetate) 09:16: 23 CDT CPT-J3420 Vitamin B12 1000mcg (Cyanocobalamin) 08:27:05 CDT 08/20 CPT-27304 Abx/Therapy Injection 08:27:05 CDT CPT-24078 Recombivax HB Injection Suspension 5 MCG/0.5ML 10:00:41 CDT CPT-51174 Administration single or combination vaccine inc oral 10 :00:41 CDT CPT-79082 Sono transvag pelvis non OB uterus ovaries cervix 16:36: 57 CDT CPT-16632 LS spine comp w obliq 09:50:55 SURVEY CREW CHIEF CPT-59891 Abd compl w upright 09:50:55 SURVEY CREW CHIEF CPT-J1100 Decadron 4mg (Dexamethasone) 15:51:24 SURVEY CREW CHIEF CPT-J1030 Depo Medrol 40 mg (Methyl Prednisolone Acetate) 15:51: 24 SURVEY CREW CHIEF CPT-93837 Abx/Therapy Injection 15:51:24 SURVEY CREW CHIEF CPT-J1100 Decadron 4mg (Dexamethasone) 15:26:33 SURVEY CREW CHIEF CPT-J1030 Depo Medrol 40 mg (Methyl Prednisolone Acetate) 15:26: 33 SURVEY CREW CHIEF CPT-92574 Sono retroperitoneal complete kidneys and bladder 17:15: 30 CDT CPT-90013 Abd compl w upright 16:09:25 CDT CPT-J1100 Decadron 8mg (Dexamethasone) 17:07:57 CDT CPT-58636 Abx/Therapy Injection 17:07:57 CDT CPT-J1100 Decadron 8mg (Dexamethasone) 16:55:24 CDT CPT-99899 Chest 2V Frontal and Lat 16:32:44 CDT
--- OUTSIDE RECORDS SUMMARY | 2016-11-04 17:01 | XMS REPORT | Clinical Summary ---
Author Author Admin, [employer] Organization [facility] [employer] Address Unknown Phone Unavailable Allergies, Adverse Reactions, [...] 17GMS DAILY IN WATER POLYETHYLENE GLYCOL 3350 [id number] Active Vishal Hui MD Active METOPROLOL TARTRATE 25 MG ORAL TABS 1/2 tablet twice daily for heart rate and blood pressure METOPROLOL TARTRATE 23304130949 Active Renzo Thornton DO Active VALIUM 5 MG TAB Take 1-2 tablets daily DIAZEPAM 50824114431 Active Ahmet Carbajal MD Active VIIBRYD 10 MG ORAL TABS Take 1 tablet once a day VILAZODONE HCL 62224935413 Active Ahmet Carbajal MD Active DICLOFENAC POTASSIUM TABS Take 1 tablet twice a day (pt. is not sure of the dose.) DICLOFENAC POTASSIUM TABS 56778420278 Active Ahmet Carbajal MD Active MIRALAX PACK 1 po qd PRN Constipation POLYETHYLENE GLYCOL 3350 38237900239 No Longer Active Ahmet Carbajal MD Active MINIPRESS 2 MG CAPS 4 cap po at night PRAZOSIN HCL 03757222162 No Longer Active Ahmet Carbajal MD Active PIROXICAM 20 MG CAPS 1 cap po qd PRN Pain PIROXICAM 81065096762 No Longer Active Ahmet Carbajal MD Active TRAMADOL HCL 50 MG TABS 1-2 po TID PRN Pain TRAMADOL HCL 92723311578 No Longer Active Ahmet Carbajal MD Active METOPROLOL TARTRATE 50 MG TAB 1 po bid METOPROLOL TARTRATE 90863123326 No Longer Active Ahmet Carbajal MD Active ABILIFY 15 MG ORAL TABS 1 tab daily ARIPIPRAZOLE 01685621619 No Longer Active Ahmet Carbajal MD Active PROZAC 20 MG ORAL CAPS 1 tab daily FLUOXETINE HCL 59194503716 No Longer Active Ahmet Carbajal MD Active AMBIEN 5 MG ORAL TABS 1 tab at bedtime ZOLPIDEM TARTRATE 03085076537 No Longer Active Ahmet Carbajal MD Active PREDNISONE 20 MG TAB 2 tabs daily for 4 days, 1 tab daily for 4 days, 1/2 tab daily for 4 days PREDNISONE 80186980833 No Longer Active Ahmet Carbajal MD Active KEFLEX 500 MG CAP 1 po TID x 10 days CEPHALEXIN 08498149401 No Longer Active Vishal Hui MD Active ABILIFY MAINTENA 400 MG IM SUSR Injection once per month ARIPIPRAZOLE 93994353178 Active Juliet Luis E RARE/ENDANGERED SPECIES SPECIALIST Active IMITREX 50 MG ORAL TABS 1/2 tab every 6 hours prn SUMATRIPTAN SUCCINATE 21911067366 Active Jillina Frazell RARE/ENDANGERED SPECIES SPECIALIST Active TOPAMAX 50 MG ORAL TABS 1 tab twice daily TOPIRAMATE 36092319465 Active Vishal Hiu MD Active SAPHRIS 5 MG SUBL 1 po bid ASENAPINE MALEATE 37653226037 No Longer Active Jillina Mauricio NORIEGA Active LATUDA 80 MG TABS Take one by mouth daily LURASIDONE HCL 41637545417 No Longer Active Pacollina Mauricio NORIEGA Active AMLODIPINE BESYLATE 5 MG TABS 1 tablet by mouth daily AMLODIPINE BESYLATE 53867350586 No Longer Active Pacollina Mauricio NORIEGA Active AMITRIPTYLINE HCL 100 MG TAB one at hs AMITRIPTYLINE HCL 75308659624 No Longer Active Vishal Hui MD Active TRAZODONE HCL 100 MG TAB take 1 at bedtime TRAZODONE HCL 69672827394 No Longer Active Vishal Hui MD Active VYVANSE 40 MG CAPS 1 daily, LISDEXAMFETAMINE DIMESYLATE 95992586185 No Longer Active Vishal Hui MD Active IBUPROFEN 600 MG TAB 1 po TID PRN IBUPROFEN 15721980720 No Longer Active Vishal Hui MD Active PROZAC 20 MG CAP Take one by mouth daily FLUOXETINE HCL 07780116666 No Longer Active Vishal Hui MD Active ZOFRAN 4 MG TABS 1 po q6hr PRN Nausea ONDANSETRON HCL Active Vishal Hui MD Active BACTRIM DS 800-160 MG TABS 1 pill by mouth twice daily SULFAMETHOXAZOLE-TRIMETHOPRIM 27640997796 No Longer Active Sahara Rodriguez MD PhD Active DIFLUCAN 150 MG TAB 1 tablet by mouth daily FLUCONAZOLE 46921838006 No Longer Active Vishal Hui MD Active TIZANIDINE HCL 4 MG TABS 1 po q6hr PRN Muscle Spasm/Back Pain TIZANIDINE HCL 77266670446 Active Vishal Hui MD Active CLINDAMYCIN HCL 150 MG CAPS 1 four times a day CLINDAMYCIN HCL 69177833406 No Longer Active Neeraj Collins MD Active KEFLEX 500 MG ORAL CAPS 1 cap QID by mouth CEPHALEXIN 29916889380 No Longer Active Neeraj Collins MD Active DIFLUCAN 150 MG TABS 1 pill every other day x 2 doses FLUCONAZOLE 30097571430 No Longer Active Sahara Rodriguez MD PhD Active MELATONIN 3 MG CAPS 2 po q hs MELATONIN 64006458476 No Longer Active Sahara Rodriguez MD PhD Active MULTIVITAMINS CAPS Take one by mouth daily MULTIPLE VITAMIN 51885955369 No Longer Active Sahara Rodriguez MD PhD Active BACTRIM DS 800-160 MG TAB 1 tab by mouth twice daily TRIMETHOPRIM-SULFAMETHOXAZOLE 58939073516 No Longer Active Sahara Rodriguez MD PhD Active [facility] PROBIOTIC ORAL CHEW 2 daily po PROBIOTIC PRODUCT 15905947640 No Longer Active Sahara Rodriguez MD PhD Active BACTRIM DS 800-160 MG TABS 1 po BID x 7 days SULFAMETHOXAZOLE-TRIMETHOPRIM 87095310496 No Longer Active Vishal Hui MD Active CHANTIX STARTING MONTH EARNEST 0.5 MG X 11 & 1 MG X 42 TABS 0.5mg daily for 3 days , then 0.5mg BID for 4 days, then 1mg BID VARENICLINE TARTRATE 73601399066 No Longer Active Lisette Scarrow, RMA Active VERAPAMIL HCL CR 120 MG TAB CR 1 po bid VERAPAMIL HCL 40944755846 No Longer Active Vishal Hui MD Active METOPROLOL SUCCINATE 50 MG TB24 1 tablet by mouth daily METOPROLOL SUCCINATE 63544974060 No Longer Active Vishal Hui MD Active SAPHRIS 10 MG SUBL 1 tab po bid ASENAPINE MALEATE 82571024052 No Longer Active Vishal Hui MD Active LISINOPRIL 20 MG TABS 1 tab po qd LISINOPRIL 60815530668 No Longer Active Vishal Hui MD Active BENADRYL 25 MG CAP 2 po tid prn anxiety DIPHENHYDRAMINE HCL 78737422616 Active Vishal Hui MD Active LATUDA 20 MG TABS Take one by mouth daily LURASIDONE HCL 28993414293 No Longer Active Vishal Hui MD Active TRAZODONE HCL 50 MG TABS 1/2 tab po qd prn for anxiety TRAZODONE HCL 01074892660 No Longer Active Vishal Hui MD Active OMEPRAZOLE 20 MG TBEC 1 po q a.m. 30min prior to first food intake OMEPRAZOLE 99646629938 Active Vishal Hui MD Active RANITIDINE HCL 150 MG CAPS 1 twice a day RANITIDINE HCL 43342102608 Active Vishal Hui MD Active LINZESS 290 MCG CAPS Take one by mouth daily LINACLOTIDE 03782068992 No Longer Active Vishal Hui MD Active SAPHRIS 5 MG SUBL 1 tab po qd ASENAPINE MALEATE 72543782991 No Longer Active Vishal Hui MD Active ZALEPLON 10 MG CAPS 1 cap po every other night ZALEPLON 82675584588 No Longer Active Vishal Hui MD Active LYRICA 50 MG CAPS 1 tab po TID PREGABALIN 06180339258 No Longer Active Vishal Hui MD Active LORATADINE 10 MG TABS 1 tab po qd LORATADINE 16289519910 No Longer Active Vishal Hui MD Active VERAPAMIL HCL ER 180 MG CR-TABS 1 tab po bid VERAPAMIL HCL 81680958600 No Longer Active Vishal Hui MD Active MIRALAX POWD 1 capfull once daily POLYETHYLENE GLYCOL 3350 10997662653 No Longer Active Vishal Hui MD Active PREDNISONE 20 MG TABS 1 tab po qd PREDNISONE 83809785362 No Longer Active Renzo Thornton DO Active LEVOFLOXACIN 500 MG TABS 1 tab po qd LEVOFLOXACIN 24141405416 No Longer Active Renzo Thornton DO Active BUSPIRONE HCL 15 MG TABS 1 tab po TID BUSPIRONE HCL 04790378891 No Longer Active Renzo Thornton DO Active BENZTROPINE MESYLATE 1 MG TABS 1 tab po qd BENZTROPINE MESYLATE 24900769254 No Longer Active Renzo Thornton DO Active ATENOLOL 25 MG TABS 1 tab po qd ATENOLOL 30797912082 No Longer Active Renzo Thornton DO Active ESCITALOPRAM OXALATE 20 MG TABS 1 tab po qd ESCITALOPRAM OXALATE 85197394544 No Longer Active Renzo Thornton DO Active ADVAIR DISKUS 250-50 MCG/DOSE AEPB 1 puff BID FLUTICASONE-SALMETEROL 55657592989 No Longer Active Renzo Thornton DO Active PREDNISONE 20 MG TAB 2 tabs daily for 3 days, 1 tab daily for 3 days, 1/2 tab daily for 2 days PREDNISONE 55150897831 No Longer Active Vishal Hui MD Active CEFDINIR 300 MG CAPS by mouth twice a day CEFDINIR 03298943786 No Longer Active Vishal Hui MD Active LANSOPRAZOLE 30 MG CPDR 1 cap po qd LANSOPRAZOLE 50104361381 No Longer Active Vishal Hui MD Active BACLOFEN 20 MG TABS 1 tab po tid BACLOFEN 80599995709 No Longer Active Vishal Hui MD Active ADVAIR DISKUS 250-50 MCG/DOSE AEPB 1 puff BID ADVAIR DISKUS 250-50 MCG/DOSE AEPB FLUTICASONE-SALMETEROL Inactive ESCITALOPRAM OXALATE 20 MG TABS 1 tab po qd ESCITALOPRAM OXALATE 20 MG TABS 939953 ESCITALOPRAM OXALATE Inactive ATENOLOL 25 MG TABS 1 tab po qd ATENOLOL 25 MG TABS 377362 ATENOLOL Inactive BENZTROPINE MESYLATE 1 MG TABS 1 tab po qd BENZTROPINE MESYLATE 1 MG TABS 354030 BENZTROPINE MESYLATE Inactive BUSPIRONE HCL 15 MG TABS 1 tab po TID BUSPIRONE HCL 15 MG TABS 694915 BUSPIRONE HCL Inactive LEVOFLOXACIN 500 MG TABS 1 tab po qd LEVOFLOXACIN 500 MG TABS 966765 LEVOFLOXACIN Inactive PREDNISONE 20 MG TABS 1 tab po qd PREDNISONE 20 MG TABS 800190 PREDNISONE Inactive MIRALAX POWD 1 capfull once daily MIRALAX POWD 692839 POLYETHYLENE GLYCOL 3350 Inactive VERAPAMIL HCL ER 180 MG CR-TABS 1 tab po bid VERAPAMIL HCL ER 180 MG CR-TABS VERAPAMIL HCL Inactive LORATADINE 10 MG TABS 1 tab po qd LORATADINE 10 MG TABS 571535 LORATADINE Inactive LYRICA 50 MG CAPS 1 tab po TID LYRICA 50 MG CAPS PREGABALIN Inactive ZALEPLON 10 MG CAPS 1 cap po every other night ZALEPLON 10 MG CAPS 974331 ZALEPLON Inactive SAPHRIS 5 MG SUBL 1 tab po qd SAPHRIS 5 MG SUBL ASENAPINE MALEATE Inactive TRAZODONE HCL 50 MG TABS 1/2 tab po qd prn for anxiety TRAZODONE HCL 50 MG TABS 899144 TRAZODONE HCL Inactive LATUDA 20 MG TABS Take one by mouth daily LATUDA 20 MG TABS LURASIDONE HCL Inactive LISINOPRIL 20 MG TABS 1 tab po qd LISINOPRIL 20 MG TABS 243720 LISINOPRIL Inactive SAPHRIS 10 MG SUBL 1 [...] twice daily BACTRIM DS 800-160 MG TAB 746599 TRIMETHOPRIM-SULFAMETHOXAZOLE Inactive MULTIVITAMINS CAPS Take one by mouth daily MULTIVITAMINS CAPS MULTIPLE VITAMIN Inactive MELATONIN 3 MG CAPS 2 po q hs MELATONIN 3 MG CAPS 557722 MELATONIN Inactive KEFLEX 500 MG ORAL CAPS 1 cap QID by mouth KEFLEX 500 MG ORAL CAPS 826973 CEPHALEXIN Inactive CLINDAMYCIN HCL 150 MG CAPS 1 four times a day CLINDAMYCIN HCL 150 MG CAPS 134482 CLINDAMYCIN HCL Inactive DIFLUCAN 150 MG TAB 1 tablet by mouth daily DIFLUCAN 150 MG TAB 382612 FLUCONAZOLE Inactive PROZAC 20 MG CAP Take one by mouth daily PROZAC 20 MG CAP 846371 FLUOXETINE HCL Inactive IBUPROFEN 600 MG TAB 1 po TID PRN IBUPROFEN 600 MG TAB 074506 IBUPROFEN Inactive VYVANSE 40 MG CAPS 1 daily, VYVANSE 40 MG CAPS LISDEXAMFETAMINE DIMESYLATE Inactive TRAZODONE HCL 100 MG TAB take 1 at bedtime TRAZODONE HCL 100 MG TAB 533078 TRAZODONE HCL Inactive AMITRIPTYLINE HCL 100 MG TAB one at hs AMITRIPTYLINE HCL 100 MG TAB 051499 AMITRIPTYLINE HCL Inactive AMLODIPINE BESYLATE 5 MG TABS 1 tablet by mouth daily AMLODIPINE BESYLATE 5 MG TABS 237983 AMLODIPINE BESYLATE Inactive LATUDA 80 MG TABS Take one by mouth daily LATUDA 80 MG TABS LURASIDONE HCL Inactive SAPHRIS 5 MG SUBL 1 po bid SAPHRIS 5 MG SUBL ASENAPINE MALEATE Inactive PREDNISONE 20 MG TAB 2 tabs daily for 4 days, 1 tab daily for 4 days, 1/2 tab daily for 4 days PREDNISONE 20 MG TAB 312776 PREDNISONE Inactive AMBIEN 5 MG ORAL TABS 1 tab at bedtime AMBIEN 5 MG ORAL TABS 032175 ZOLPIDEM TARTRATE Inactive PROZAC 20 MG ORAL CAPS 1 tab daily PROZAC 20 MG ORAL CAPS 817476 FLUOXETINE HCL Inactive ABILIFY 15 MG ORAL TABS 1 tab daily ABILIFY 15 MG ORAL TABS 425077 ARIPIPRAZOLE Inactive METOPROLOL TARTRATE 50 MG TAB 1 po bid METOPROLOL TARTRATE 50 MG TAB 184012 METOPROLOL TARTRATE Inactive TRAMADOL HCL 50 MG TABS 1-2 po TID PRN Pain TRAMADOL HCL 50 MG TABS 125444 TRAMADOL HCL Inactive PIROXICAM 20 MG CAPS 1 cap po qd PRN Pain PIROXICAM 20 MG CAPS 895541 PIROXICAM Inactive MINIPRESS 2 MG CAPS 4 cap po at night MINIPRESS 2 MG CAPS 128818 PRAZOSIN HCL Inactive MIRALAX PACK 1 po qd PRN Constipation MIRALAX PACK 029469 POLYETHYLENE GLYCOL 3350 Inactive CEFDINIR 300 MG CAPS by mouth twice a day CEFDINIR 300 MG CAPS 490382 CEFDINIR Inactive PREDNISONE 20 MG TAB 2 tabs daily for 3 days, 1 tab daily for 3 days, 1/2 tab daily for 2 days PREDNISONE 20 MG TAB 924860 PREDNISONE Inactive BACTRIM DS 800-160 MG TABS 1 po BID x 7 days BACTRIM DS 800-160 MG TABS 19820521 SULFAMETHOXAZOLE-TRIMETHOPRIM Inactive DIFLUCAN 150 MG TABS 1 pill every other day x 2 doses DIFLUCAN 150 MG TABS 122286 FLUCONAZOLE Inactive BACTRIM DS 800-160 MG TABS 1 pill by mouth twice daily BACTRIM DS 800-160 MG TABS 476717 SULFAMETHOXAZOLE-TRIMETHOPRIM Inactive KEFLEX 500 MG CAP 1 po TID x 10 days KEFLEX 500 MG CAP 155467 CEPHALEXIN Inactive Advance Directives Directive Description Start [...] % 11.6-14.8 platelet count 394 10^3/MM^3 10*3/mm3 302-875 3980/01/11 leukocyte count, blood 13.8 10^3/MM^3 10*3/mm3 4.6-10.2 [...] Panel - Chemistry sodium, serum 139 mmol/L 692-454 0827/12/03 carbon dioxide, venous blood 28.5 mmol/L 21.0-32.0 [...] 5.5 % 4.3-6.0 cholesterol, serum 159 mg/dL 192-732 5409/12/03 triglyceride, serum, fasting 118 mg/dL 30-200 HDL [...] Panel - Chemistry sodium, serum 139 mmol/L 667-496 3375/12/22 carbon dioxide, venous blood 26.8 mmol/L 21.0-32.0 potassium, serum 4.2 mmol/L 3.5-5.2 chloride, serum 103 mmol/L 98-107 blood glucose 115 mg/dL 65-110 urea nitrogen, blood 20 mg/dL 7-18 creatinine, serum 0.90 mg/dL 0.55-1.30 alanine aminotransferase (SGPT), serum 38 U/L 12-78 aspartate aminotransferase (SGOT), serum 19 U/L 15-37 calcium, serum 8.6 mg/dL 8.5-10.1 bilirubin, serum, total 0.30 mg/dL 0.00-1.00 sodium, serum 139 mmol/L 316-571 6585/01/11 carbon dioxide, venous blood 26.6 mmol/L 21.0-32.0 potassium, serum 4.1 mmol/L 3.5-5.2 chloride, serum 100 mmol/L 98-107 blood glucose 86 mg/dL 65-110 urea nitrogen, blood 16 mg/dL 7-18 creatinine, serum 1.00 mg/dL 0.55-1.30 alanine aminotransferase (SGPT), serum 48 U/L 12-78 aspartate aminotransferase (SGOT), serum 17 U/L 15-37 calcium, serum 9.1 mg/dL 8.5-10.1 bilirubin, serum, total 0.40 mg/dL 0.00-1.00 sodium, serum 142 mmol/L 293-891 5591/06/08 carbon dioxide, venous blood 27.6 mmol/L 21.0-32.0 [...] Rate - Chemistry sodium, serum 139 mmol/L 111-497 7845/12/11 carbon dioxide, venous blood 25.4 mmol/L 21.0-32.0 [...] mg/dL Encounters Code Encounter Date Provider Facility CPT-62988 Level 3 New Patient 16:53:37 CDT Albert Caldera MD [facility] CPT-60271 Level 3 Est. Patient 11:25:49 CDT Renzo Thornton DO [facility] CPT-29597 Level 3 Est. Patient 15:22:01 CDT Ahmet Carbajal MD [facility] CPT-34854 Level 4 Est. Patient 09:00:51 DRUM STRAIGHTENER Vishal Hui MD [facility] CPT-45683 Level 3 Est. Patient 11:37:33 DRUM STRAIGHTENER Vishal Hui MD [facility] CPT-75268 Level 3 Est. Patient 08:41:09 DRUM STRAIGHTENER Vishal Hui MD [facility] CPT-50468 Level 4 Est. Patient 10:19:35 DRUM STRAIGHTENER Vishal Hui MD [facility] CPT-39927 Level 3 Est. Patient 13:35:45 CDT Vishal Hui MD [facility] CPT-28894 Level 4 Est. Patient 10:08:37 CDT Vishal Hui MD [facility] CPT-07494 Level 3 Est. Patient 11:22:10 CDT Vishal Hui MD [facility] CPT-97583 Level 3 Est. Patient 11:03:32 CDT Sahara Rodriguez MD [facility]-40329 Level 3 Est. Patient 09:41:35 CDT Vishal Hui MD [facility] CPT-32848 Level 3 Est. Patient 12:00:41 CDT Neeraj Collins MD [facility] CPT-57549 Level 3 Est. Patient 09:16:24 CDT Vishal Hui MD [facility] CPT-50243 Level 4 Est. Patient 13:59:09 CDT Neeraj Collins MD [facility] CPT-59502 Level 3 Est. Patient 15:19:43 CDT Renzo Thornton DO [facility] CPT-86915 Level 3 Est. Patient 18:10:26 CDT Sahara Rodriguez MD [facility] CPT-66150 Level 3 Est. Patient 14:49:50 CDT Vishal Hui MD [facility] CPT-08218 Level 4 Est. Patient 18:41:46 CDT Neeraj Collins MD [facility] CPT-53187 Level 4 Est. Patient 09:18:38 DRUM STRAIGHTENER Vishal Hui MD [facility] CPT-31155 Level 3 Est. Patient 14:43:55 DRUM STRAIGHTENER Vishal Hui MD [facility] CPT-05735 Level 3 Est. Patient 15:26:33 DRUM STRAIGHTENER Sahara Rodriguez MD PhD [facility] CPT-05209 Level 3 Est. Patient 10:32:14 DRUM STRAIGHTENER Vishal Hui MD [facility] CPT-86893 Level 3 Est. Patient 15:12:52 DRUM STRAIGHTENER Vishal Hui MD [facility] CPT-58558 Level 4 Est. Patient 09:19:27 CDT Vishal Hui MD [facility] CPT-90521 Level 3 Est. Patient 15:53:00 CDT Renzo Thornton [facility] CPT-58069 Level 3 Est. Patient 15:50:30 CDT Renzo Thornton [facility] CPT-07358 Level 3 Est. Patient 16:55:24 CDT Vishal Hui MD [facility] Procedures Code Procedure Name Date Entry Date Standard Description CPT-51381 EKG Trac and Interp - XRAY USE ONLY 11:31:43 CDT 08/26 CPT-J3420 Vitamin B12 1000mcg (Cyanocobalamin) 08:10:26 DRUM STRAIGHTENER 04/12 CPT-10326 Abx/Therapy Injection 08:10:26 DRUM STRAIGHTENER CPT-G0438 Initial Annual Wellness Exam 19:01:01 DRUM STRAIGHTENER CPT-J3420 Vitamin B12 1000mcg (Cyanocobalamin) 16:57:46 CDT 08/14 CPT-66169 Recombivax HB Injection Suspension 5 MCG/0.5ML 08:37:50 DRUM STRAIGHTENER CPT-04594 Immunization Single Admin 08:37:50 DRUM STRAIGHTENER CPT-J3420 Vitamin B12 1000mcg (Cyanocobalamin) 08:32:16 DRUM STRAIGHTENER 03/11 CPT-01272 Abx/Therapy Injection 08:32:16 DRUM STRAIGHTENER CPT-84405 Chest 2V Frontal and Lat 11:46:38 DRUM STRAIGHTENER CPT-88720 Venipuncture Draw Fee 09:12:45 DRUM STRAIGHTENER CPT-J3420 Vitamin B12 1000mcg (Cyanocobalamin) 08:50:15 DRUM STRAIGHTENER 02/08 CPT-18348 Abx/Therapy Injection 08:50:15 DRUM STRAIGHTENER CPT-Cryo Cryotherapy 10:19:35 DRUM STRAIGHTENER CPT-000 Give Appropriate Flu Vaccine 09:22:16 CDT CPT-J3420 Vitamin B12 1000mcg (Cyanocobalamin) 19:08:57 CDT 01/11 CPT-50494 Abx/Therapy Injection 19:08:57 CDT CPT-J3420 Vitamin B12 1000mcg (Cyanocobalamin) 08:19:08 CDT 12/11 CPT-05234 Abx/Therapy Injection 08:19:08 CDT CPT-J3420 Vitamin B12 1000mcg (Cyanocobalamin) 14:48:00 CDT 11/09 CPT-66199 Abx/Therapy Injection 14:47:59 CDT CPT-J3420 Vitamin B12 1000mcg (Cyanocobalamin) 08:34:04 CDT 10/09 CPT-39819 Abx/Therapy Injection 08:34:04 CDT CPT-J3420 Vitamin B12 1000mcg (Cyanocobalamin) 09:18:52 CDT 09/11 CPT-53931 Abx/Therapy Injection 09:18:52 CDT CPT-J3420 Vitamin B12 1000mcg (Cyanocobalamin) 08:35:44 CDT 09/04 CPT-81396 Abx/Therapy Injection 08:35:44 CDT CPT-53324 Immunization Single Admin 11:07:16 CDT CPT-13786 Hepatitis B adult IM 11:07:16 CDT CPT-J3420 Vitamin B12 1000mcg (Cyanocobalamin) 11:00:49 CDT 08/28 CPT-J1040 Depo Medrol 80 mg (Methyl Prednisolone Acetate) 11:00: 49 CDT CPT-92632 Abx/Therapy Injection 11:00:49 CDT CPT-J1040 Depo Medrol 80 mg (Methyl Prednisolone Acetate) 09:16: 23 CDT CPT-J3420 Vitamin B12 1000mcg (Cyanocobalamin) 08:27:05 CDT 08/20 CPT-50018 Abx/Therapy Injection 08:27:05 CDT CPT-33510 Recombivax HB Injection Suspension 5 MCG/0.5ML 10:00:41 CDT CPT-63981 Administration single or combination vaccine inc oral 10 :00:41 CDT CPT-51365 Sono transvag pelvis non OB uterus ovaries cervix 16:36: 57 CDT CPT-85734 LS spine comp w obliq 09:50:55 DRUM STRAIGHTENER CPT-58247 Abd compl w upright 09:50:55 DRUM STRAIGHTENER CPT-J1100 Decadron 4mg (Dexamethasone) 15:51:24 DRUM STRAIGHTENER CPT-J1030 Depo Medrol 40 mg (Methyl Prednisolone Acetate) 15:51: 24 DRUM STRAIGHTENER CPT-84421 Abx/Therapy Injection 15:51:24 DRUM STRAIGHTENER CPT-J1100 Decadron 4mg (Dexamethasone) 15:26:33 DRUM STRAIGHTENER CPT-J1030 Depo Medrol 40 mg (Methyl Prednisolone Acetate) 15:26: 33 DRUM STRAIGHTENER CPT-18950 Sono retroperitoneal complete kidneys and bladder 17:15: 30 CDT CPT-80025 Abd compl w upright 16:09:25 CDT CPT-J1100 Decadron 8mg (Dexamethasone) 17:07:57 CDT CPT-07645 Abx/Therapy Injection 17:07:57 CDT CPT-J1100 Decadron 8mg (Dexamethasone) 16:55:24 CDT CPT-40601 Chest 2V Frontal and Lat 16:32:44 CDT
--- OUTSIDE RECORDS SUMMARY | 2016-11-04 17:03 | XMS REPORT | Clinical Summary ---
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 Juliet Kimbrough UTILIZATION REVIEW SPECIALIST Dependence on other enabling machines and [...] 1 po TID x 10 days CEPHALEXIN 10558807806 No Longer Active Vishal Hui MD Active ABILIFY MAINTENA 400 MG IM SUSR Injection once per month ARIPIPRAZOLE 85974018215 Active Juliet Kimbrough APRN Active PREDNISONE 20 MG TAB 2 tabs daily for 4 days, 1 tab daily for 4 days, 1/2 tab daily for 4 days PREDNISONE 88468958711 Active Vishal Hui MD Active IMITREX 50 MG ORAL TABS 1/2 tab every 6 hours prn SUMATRIPTAN SUCCINATE 31198942420 Active Luigi Martínez APRN Active AMBIEN 5 MG ORAL TABS 1 tab at bedtime ZOLPIDEM TARTRATE 16832462465 Active Luigi Martínez APRN Active PROZAC 20 MG ORAL CAPS 1 tab daily FLUOXETINE HCL 89206307763 Active Luigi Martínez APRN Active ABILIFY 15 MG ORAL TABS 1 tab daily ARIPIPRAZOLE 23993577232 Active Luigi Martínez APRN Active MINIPRESS 2 MG CAPS 4 cap po at night PRAZOSIN HCL 64836913354 Active Luigi Martínez APRN Active TOPAMAX 50 MG ORAL TABS 1 tab twice daily TOPIRAMATE 33650529806 Active Vishal Hui MD Active SAPHRIS 5 MG SUBL 1 po bid ASENAPINE MALEATE 56731812747 No Longer Active Luigi Martínez APRN Active LATUDA 80 MG TABS Take one by mouth daily LURASIDONE HCL 79303237207 No Longer Active Luigi Martínez APRN Active AMLODIPINE BESYLATE 5 MG TABS 1 tablet by mouth daily AMLODIPINE BESYLATE 40658557854 No Longer Active Luigi Martínez APRN Active AMITRIPTYLINE HCL 100 MG TAB one at hs AMITRIPTYLINE HCL 36531441874 No Longer Active Vishal Hui MD Active TRAZODONE HCL 100 MG TAB take 1 at bedtime TRAZODONE HCL 42451360402 No Longer Active Vishal Hui MD Active VYVANSE 40 MG CAPS 1 daily, LISDEXAMFETAMINE DIMESYLATE 56020236820 No Longer Active Vishal Hui MD Active IBUPROFEN 600 MG TAB 1 po TID PRN IBUPROFEN 78938434691 No Longer Active Vishal Hui MD Active MIRALAX PACK 1 po qd PRN Constipation POLYETHYLENE GLYCOL 3350 28248126314 Active Vishal Hui MD Active PROZAC 20 MG CAP Take one by mouth daily FLUOXETINE HCL 56438590909 No Longer Active Vishal Hui MD Active ZOFRAN 4 MG TABS 1 po q6hr PRN Nausea ONDANSETRON HCL Active Vishal Hui MD Active BACTRIM DS 800-160 MG TABS 1 pill by mouth twice daily SULFAMETHOXAZOLE-TRIMETHOPRIM 10879543376 No Longer Active Sahara Rodriguez MD PhD Active DIFLUCAN 150 MG TAB 1 tablet by mouth daily FLUCONAZOLE 78835749652 No Longer Active Vishal Hui MD Active TIZANIDINE HCL 4 MG TABS 1 po q6hr PRN Muscle Spasm/Back Pain TIZANIDINE HCL 65065138624 Active Luigi Martínez APRN Active CLINDAMYCIN HCL 150 MG CAPS 1 four times a day CLINDAMYCIN HCL 18072915436 No Longer Active Neeraj Collins MD Active KEFLEX 500 MG ORAL CAPS 1 cap QID by mouth CEPHALEXIN 99968704843 No Longer Active Neeraj Collins MD Active DIFLUCAN 150 MG TABS 1 pill every other day x 2 doses FLUCONAZOLE 50466325126 No Longer Active Sahara Rodriguez MD PhD Active MELATONIN 3 MG CAPS 2 po q hs MELATONIN 79420551074 No Longer Active Sahara Rodriguez MD PhD Active MULTIVITAMINS CAPS Take one by mouth daily MULTIPLE VITAMIN 36070506409 No Longer Active Sahara Rodriguez MD PhD Active BACTRIM DS 800-160 MG TAB 1 tab by mouth twice daily TRIMETHOPRIM-SULFAMETHOXAZOLE 49668039315 No Longer Active Sahara Rodriguez MD PhD Active [facility] PROBIOTIC ORAL CHEW 2 daily po PROBIOTIC PRODUCT 64050301391 No Longer Active Sahara Rodriguez MD PhD Active BACTRIM DS 800-160 MG TABS 1 po BID x 7 days SULFAMETHOXAZOLE-TRIMETHOPRIM 44670209099 No Longer Active Vishal Hui MD Active CHANTIX STARTING MONTH EARNEST 0.5 MG X 11 & 1 MG X 42 TABS 0.5mg daily for 3 days , then 0.5mg BID for 4 days, then 1mg BID VARENICLINE TARTRATE 49781452440 No Longer Active TAMARA Gray Active METOPROLOL TARTRATE 50 MG TAB 1 po bid METOPROLOL TARTRATE 48247120206 Active Vishal Hiu MD Active VERAPAMIL HCL CR 120 MG TAB CR 1 po bid VERAPAMIL HCL 19708031069 No Longer Active Vishal Hui MD Active METOPROLOL SUCCINATE 50 MG TB24 1 tablet by mouth daily METOPROLOL SUCCINATE 85348533728 No Longer Active Vishal Hui MD Active TRAMADOL HCL 50 MG TABS 1-2 po TID PRN Pain TRAMADOL HCL 32955497091 Active Vishal Hui MD Active SAPHRIS 10 MG SUBL 1 tab po bid ASENAPINE MALEATE 48346539872 No Longer Active Vishal Hui MD Active LISINOPRIL 20 MG TABS 1 tab po qd LISINOPRIL 05221240504 No Longer Active Vishal Hui MD Active BENADRYL 25 MG CAP 2 po tid prn anxiety DIPHENHYDRAMINE HCL 31249264234 Active Vishal Hui MD Active LATUDA 20 MG TABS Take one by mouth daily LURASIDONE HCL 22969431434 No Longer Active Vishal Hui MD Active TRAZODONE HCL 50 MG TABS 1/2 tab po qd prn for anxiety TRAZODONE HCL 11338529230 No Longer Active Vishal Hui MD Active PIROXICAM 20 MG CAPS 1 cap po qd PRN Pain PIROXICAM 97460432902 Active Vishal Hui MD Active OMEPRAZOLE 20 MG TBEC 1 po q a.m. 30min prior to first food intake OMEPRAZOLE 48158192634 Active Vishal Hui MD Active RANITIDINE HCL 150 MG CAPS 1 twice a day RANITIDINE HCL 01138531589 Active Vishal Hui MD Active LINZESS 290 MCG CAPS Take one by mouth daily LINACLOTIDE 35793515200 No Longer Active Vishal Hui MD Active SAPHRIS 5 MG SUBL 1 tab po qd ASENAPINE MALEATE 74659390745 No Longer Active Vishal Hui MD Active ZALEPLON 10 MG CAPS 1 cap po every other night ZALEPLON 29273064256 No Longer Active Vishal Hui MD Active LYRICA 50 MG CAPS 1 tab po TID PREGABALIN 70838503676 No Longer Active Vishal Hui MD Active LORATADINE 10 MG TABS 1 tab po qd LORATADINE 77794894898 No Longer Active Vishal Hui MD Active VERAPAMIL HCL ER 180 MG CR-TABS 1 tab po bid VERAPAMIL HCL 16536553115 No Longer Active Vishal Hui MD Active MIRALAX POWD 1 capfull once daily POLYETHYLENE GLYCOL 3350 39784026405 No Longer Active Vishal Hui MD Active PREDNISONE 20 MG TABS 1 tab po qd PREDNISONE 38149490705 No Longer Active Renzo Thornton DO Active LEVOFLOXACIN 500 MG TABS 1 tab po qd LEVOFLOXACIN 90834338781 No Longer Active Renzo Thornton DO Active BUSPIRONE HCL 15 MG TABS 1 tab po TID BUSPIRONE HCL 84664235548 No Longer Active Renzo Thornton DO Active BENZTROPINE MESYLATE 1 MG TABS 1 tab po qd BENZTROPINE MESYLATE 59669871682 No Longer Active Renzo Thornton DO Active ATENOLOL 25 MG TABS 1 tab po qd ATENOLOL 49407239576 No Longer Active Renzo Thornton DO Active ESCITALOPRAM OXALATE 20 MG TABS 1 tab po qd ESCITALOPRAM OXALATE 95287156123 No Longer Active Renzo Thornton DO Active ADVAIR DISKUS 250-50 MCG/DOSE AEPB 1 puff BID FLUTICASONE-SALMETEROL 71794391797 No Longer Active Renzo Thornton DO Active PREDNISONE 20 MG TAB 2 tabs daily for 3 days, 1 tab daily for 3 days, 1/2 tab daily for 2 days PREDNISONE 72494476440 No Longer Active Vishal Hui MD Active CEFDINIR 300 MG CAPS by mouth twice a day CEFDINIR 88992261435 No Longer Active Vishal Hui MD Active LANSOPRAZOLE 30 MG CPDR 1 cap po qd LANSOPRAZOLE 43549733925 No Longer Active Vishal Hui MD Active BACLOFEN 20 MG TABS 1 tab po tid BACLOFEN 48949078747 No Longer Active Vishal Hui MD Active ADVAIR DISKUS 250-50 MCG/DOSE AEPB 1 puff BID ADVAIR DISKUS 250-50 MCG/DOSE AEPB FLUTICASONE-SALMETEROL Inactive ESCITALOPRAM OXALATE 20 MG TABS 1 tab po qd ESCITALOPRAM OXALATE 20 MG TABS 806820 ESCITALOPRAM OXALATE Inactive ATENOLOL 25 MG TABS 1 tab po qd ATENOLOL 25 MG TABS 853735 ATENOLOL Inactive BENZTROPINE MESYLATE 1 MG TABS 1 tab po qd BENZTROPINE MESYLATE 1 MG TABS 536219 BENZTROPINE MESYLATE Inactive BUSPIRONE HCL 15 MG TABS 1 tab po TID BUSPIRONE HCL 15 MG TABS 793925 BUSPIRONE HCL Inactive LEVOFLOXACIN 500 MG TABS 1 tab po qd LEVOFLOXACIN 500 MG TABS 424499 LEVOFLOXACIN Inactive PREDNISONE 20 MG TABS 1 tab po qd PREDNISONE 20 MG TABS 375885 PREDNISONE Inactive MIRALAX POWD 1 capfull once daily MIRALAX POWD 283539 POLYETHYLENE GLYCOL 3350 Inactive VERAPAMIL HCL ER 180 MG CR-TABS 1 tab po bid VERAPAMIL HCL ER 180 MG CR-TABS VERAPAMIL HCL Inactive LORATADINE 10 MG TABS 1 tab po qd LORATADINE 10 MG TABS 201849 LORATADINE Inactive LYRICA 50 MG CAPS 1 tab po TID LYRICA 50 MG CAPS PREGABALIN Inactive ZALEPLON 10 MG CAPS 1 cap po every other night ZALEPLON 10 MG CAPS 418067 ZALEPLON Inactive SAPHRIS 5 MG SUBL 1 tab po qd SAPHRIS 5 MG SUBL ASENAPINE MALEATE Inactive TRAZODONE HCL 50 MG TABS 1/2 tab po qd prn for anxiety TRAZODONE HCL 50 MG TABS 607883 TRAZODONE HCL Inactive LATUDA 20 MG TABS Take one by mouth daily LATUDA 20 MG TABS LURASIDONE HCL Inactive LISINOPRIL 20 MG TABS 1 tab po qd LISINOPRIL 20 MG TABS 074077 LISINOPRIL Inactive SAPHRIS 10 MG SUBL 1 [...] twice daily BACTRIM DS 800-160 MG TAB 722901 TRIMETHOPRIM-SULFAMETHOXAZOLE Inactive MULTIVITAMINS CAPS Take one by mouth daily MULTIVITAMINS CAPS MULTIPLE VITAMIN Inactive MELATONIN 3 MG CAPS 2 po q hs MELATONIN 3 MG CAPS 950077 MELATONIN Inactive KEFLEX 500 MG ORAL CAPS 1 cap QID by mouth KEFLEX 500 MG ORAL CAPS 739044 CEPHALEXIN Inactive CLINDAMYCIN HCL 150 MG CAPS 1 four times a day CLINDAMYCIN HCL 150 MG CAPS 19740326 CLINDAMYCIN HCL Inactive DIFLUCAN 150 MG TAB 1 tablet by mouth daily DIFLUCAN 150 MG TAB 659104 FLUCONAZOLE Inactive PROZAC 20 MG CAP Take one by mouth daily PROZAC 20 MG CAP 499849 FLUOXETINE HCL Inactive IBUPROFEN 600 MG TAB 1 po TID PRN IBUPROFEN 600 MG TAB 942299 IBUPROFEN Inactive VYVANSE 40 MG CAPS 1 daily, VYVANSE 40 MG CAPS LISDEXAMFETAMINE DIMESYLATE Inactive TRAZODONE HCL 100 MG TAB take 1 at bedtime TRAZODONE HCL 100 MG TAB 700576 TRAZODONE HCL Inactive AMITRIPTYLINE HCL 100 MG TAB one at hs AMITRIPTYLINE HCL 100 MG TAB 838841 AMITRIPTYLINE HCL Inactive AMLODIPINE BESYLATE 5 MG TABS 1 tablet by mouth daily AMLODIPINE BESYLATE 5 MG TABS 857912 AMLODIPINE BESYLATE Inactive LATUDA 80 MG TABS Take one by mouth daily LATUDA 80 MG TABS LURASIDONE HCL Inactive SAPHRIS 5 MG SUBL 1 po bid SAPHRIS 5 MG SUBL ASENAPINE MALEATE Inactive CEFDINIR 300 MG CAPS by mouth twice a day CEFDINIR 300 MG CAPS 723549 CEFDINIR Inactive PREDNISONE 20 MG TAB 2 tabs daily for 3 days, 1 tab daily for 3 days, 1/2 tab daily for 2 days PREDNISONE 20 MG TAB 815046 PREDNISONE Inactive BACTRIM DS 800-160 MG TABS 1 po BID x 7 days BACTRIM DS 800-160 MG TABS 19820521 SULFAMETHOXAZOLE-TRIMETHOPRIM Inactive DIFLUCAN 150 MG TABS 1 pill every other day x 2 doses DIFLUCAN 150 MG TABS 610937 FLUCONAZOLE Inactive BACTRIM DS 800-160 MG TABS 1 pill by mouth twice daily BACTRIM DS 800-160 MG TABS 19820521 SULFAMETHOXAZOLE-TRIMETHOPRIM Inactive KEFLEX 500 MG CAP 1 po TID x 10 days KEFLEX 500 MG CAP 329557 CEPHALEXIN Inactive Advance Directives Directive Description Start [...] % 11.6-14.8 platelet count 394 10^3/MM^3 10*3/mm3 315-075 5689/01/11 leukocyte count, blood 13.8 10^3/MM^3 10*3/mm3 4.6-10.2 [...] Panel - Chemistry sodium, serum 139 mmol/L 762-118 8022/12/03 carbon dioxide, venous blood 28.5 mmol/L 21.0-32.0 [...] 5.5 % 4.3-6.0 cholesterol, serum 159 mg/dL 318-567 5044/12/03 triglyceride, serum, fasting 118 mg/dL 30-200 HDL [...] ... - Chemistry sodium, serum 140 mmol/L 540-252 7400/05/28 potassium, serum 4.2 mmol/L 3.5-5.2 chloride, serum [...] Panel - Chemistry sodium, serum 141 mmol/L 399-663 4532 potassium, serum 4.3 mmol/L 3.5-5.2 chloride, serum 106 mmol/L 98-107 carbon dioxide, venous blood 25.7 mmol/L 21.0-32.0 blood glucose 119 mg/dL 65-110 urea nitrogen, blood 22 mg/dL 7-18 creatinine, serum 0.90 mg/dL 0.60-1.30 alanine aminotransferase (SGPT), serum 28 U/L 12-78 aspartate aminotransferase (SGOT), serum 13 U/L 15-37 calcium, serum 8.5 mg/dL 8.5-10.1 bilirubin, serum, total 0.20 mg/dL 0.00-1.00 sodium, serum 139 mmol/L 470-155 1252/12/22 carbon dioxide, venous blood 26.8 mmol/L 21.0-32.0 potassium, serum 4.2 mmol/L 3.5-5.2 chloride, serum 103 mmol/L 98-107 blood glucose 115 mg/dL 65-110 urea nitrogen, blood 20 mg/dL 7-18 creatinine, serum 0.90 mg/dL 0.55-1.30 alanine aminotransferase (SGPT), serum 38 U/L 12-78 aspartate aminotransferase (SGOT), serum 19 U/L 15-37 calcium, serum 8.6 mg/dL 8.5-10.1 bilirubin, serum, total 0.30 mg/dL 0.00-1.00 sodium, serum 139 mmol/L 349-568 0451/01/11 carbon dioxide, venous blood 26.6 mmol/L 21.0-32.0 [...] Rate - Chemistry sodium, serum 139 mmol/L 895-308 3827/12/11 carbon dioxide, venous blood 25.4 mmol/L 21.0-32.0 [...] semiquantitative 5.5 5.0-8.5 Lab Report: Varicella-Zoater Inga IgG,IgM/63530, HEP Be Antibody/556, RUB ... - Serology rubella antibody, serum, IgG 2.88 Encounters Code Encounter Date Provider Facility CPT-99449 Level 4 Est. 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 Patient 11:37:33 GLASS CUTTER HELPER Vishal Hui MD [facility] CPT-57513 Level 3 Est. Patient 08:41:09 GLASS CUTTER HELPER Vishal Hui MD [facility] CPT-28340 Level 4 Est. Patient 10:19:35 GLASS CUTTER HELPER Vishal Hui MD [facility] CPT-00313 Level 3 Est. Patient 13:35:45 CDT Vishal Hui MD [facility] CPT-51913 Level 4 Est. Patient 10:08:37 CDT Vishal Hui MD [facility]-76542 Level 3 Est. Patient 11:22:10 CDT Vishal Hui MD [facility] CPT-03740 Level 3 Est. Patient 11:03:32 CDT Sahara Rodriguez MD [facility]-31482 Level 3 Est. Patient 09:41:35 CDT Vishal Hui MD [facility]-78526 Level 3 Est. Patient 12:00:41 CDT Neeraj Collins MD [facility]-14864 Level 3 Est. Patient 09:16:24 CDT Vishal Hui MD [facility] CPT-26449 Level 4 Est. Patient 13:59:09 CDT Neeraj Collins MD [facility] CPT-38461 Level 3 Est. Patient 15:19:43 CDT Renzo Thornton DO [facility] CPT-32941 Level 3 Est. Patient 18:10:26 CDT Sahara Rodriguez MD [facility]-33112 Level 3 Est. Patient 14:49:50 CDT Vishal Hui MD [facility]-90743 Level 4 Est. Patient 18:41:46 CDT Neeraj Collins MD [facility] CPT-36539 Level 4 Est. Patient 09:18:38 GLASS CUTTER HELPER Vishal Hui MD [facility]-28658 Level 3 Est. Patient 14:43:55 GLASS CUTTER HELPER Vishal Hui MD [facility] CPT-39679 Level 3 Est. Patient 15:26:33 GLASS CUTTER HELPER Sahara Rodriguez MD [facility]-93571 Level 3 Est. Patient 10:32:14 GLASS CUTTER HELPER Vishal Hui MD [facility] CPT-89870 Level 3 Est. Patient 15:12:52 GLASS CUTTER HELPER Vishal Hui MD [facility] CPT-49583 Level 4 Est. Patient 09:19:27 CDT Vishal Hui MD [facility] CPT-30537 Level 3 Est. Patient 15:53:00 CDT Renzo Thornton [facility] CPT-49546 Level 3 Est. Patient 15:50:30 CDT Renzo Thornton [facility] CPT-74653 Level 3 Est. Patient 16:55:24 CDT Vishal Hui MD [facility] Procedures Code Procedure Name Date Entry Date Standard Description CPT-J3420 Vitamin B12 1000mcg (Cyanocobalamin) 08:10:26 GLASS CUTTER HELPER 04/12 CPT-58227 Abx/Therapy Injection 08:10:26 GLASS CUTTER HELPER CPT-G0438 Initial Annual Wellness Exam 19:01:01 GLASS CUTTER HELPER CPT-J3420 Vitamin B12 1000mcg (Cyanocobalamin) 16:57:46 CDT 08/14 CPT-64346 Recombivax HB Injection Suspension 5 MCG/0.5ML 08:37:50 GLASS CUTTER HELPER CPT-22117 Immunization Single Admin 08:37:50 GLASS CUTTER HELPER CPT-J3420 Vitamin B12 1000mcg (Cyanocobalamin) 08:32:16 GLASS CUTTER HELPER 03/11 CPT-68518 Abx/Therapy Injection 08:32:16 GLASS CUTTER HELPER CPT-04517 Chest 2V Frontal and Lat 11:46:38 GLASS CUTTER HELPER CPT-29541 Venipuncture Draw Fee 09:12:45 GLASS CUTTER HELPER CPT-J3420 Vitamin B12 1000mcg (Cyanocobalamin) 08:50:15 GLASS CUTTER HELPER 02/08 CPT-75309 Abx/Therapy Injection 08:50:15 GLASS CUTTER HELPER CPT-Cryo Cryotherapy 10:19:35 GLASS CUTTER HELPER CPT-000 Give Appropriate Flu Vaccine 09:22:16 CDT CPT-J3420 Vitamin B12 1000mcg (Cyanocobalamin) 19:08:57 CDT 01/11 CPT-01537 Abx/Therapy Injection 19:08:57 CDT CPT-J3420 Vitamin B12 1000mcg (Cyanocobalamin) 08:19:08 CDT 12/11 CPT-55860 Abx/Therapy Injection 08:19:08 CDT CPT-J3420 Vitamin B12 1000mcg (Cyanocobalamin) 14:48:00 CDT 11/09 CPT-64798 Abx/Therapy Injection 14:47:59 CDT CPT-J3420 Vitamin B12 1000mcg (Cyanocobalamin) 08:34:04 CDT 10/09 CPT-15682 Abx/Therapy Injection 08:34:04 CDT CPT-J3420 Vitamin B12 1000mcg (Cyanocobalamin) 09:18:52 CDT 09/11 CPT-22135 Abx/Therapy Injection 09:18:52 CDT CPT-J3420 Vitamin B12 1000mcg (Cyanocobalamin) 08:35:44 CDT 09/04 CPT-79836 Abx/Therapy Injection 08:35:44 CDT CPT-20575 Immunization Single Admin 11:07:16 CDT CPT-52632 Hepatitis B adult IM 11:07:16 CDT CPT-J3420 Vitamin B12 1000mcg (Cyanocobalamin) 11:00:49 CDT 08/28 CPT-J1040 Depo Medrol 80 mg (Methyl Prednisolone Acetate) 11:00: 49 CDT CPT-04390 Abx/Therapy Injection 11:00:49 CDT CPT-J1040 Depo Medrol 80 mg (Methyl Prednisolone Acetate) 09:16: 23 CDT CPT-J3420 Vitamin B12 1000mcg (Cyanocobalamin) 08:27:05 CDT 08/20 CPT-63826 Abx/Therapy Injection 08:27:05 CDT CPT-46220 Recombivax HB Injection Suspension 5 MCG/0.5ML 10:00:41 CDT CPT-88232 Administration single or combination vaccine inc oral 10 :00:41 CDT CPT-85216 Sono transvag pelvis non OB uterus ovaries cervix 16:36: 57 CDT CPT-61180 LS spine comp w obliq 09:50:55 GLASS CUTTER HELPER CPT-23612 Abd compl w upright 09:50:55 GLASS CUTTER HELPER CPT-J1100 Decadron 4mg (Dexamethasone) 15:51:24 GLASS CUTTER HELPER CPT-J1030 Depo Medrol 40 mg (Methyl Prednisolone Acetate) 15:51: 24 GLASS CUTTER HELPER CPT-53381 Abx/Therapy Injection 15:51:24 GLASS CUTTER HELPER CPT-J1100 Decadron 4mg (Dexamethasone) 15:26:33 GLASS CUTTER HELPER CPT-J1030 Depo Medrol 40 mg (Methyl Prednisolone Acetate) 15:26: 33 GLASS CUTTER HELPER CPT-82186 Sono retroperitoneal complete kidneys and bladder 17:15: 30 CDT CPT-40265 Abd compl w upright 16:09:25 CDT CPT-J1100 Decadron 8mg (Dexamethasone) 17:07:57 CDT CPT-42622 Abx/Therapy Injection 17:07:57 CDT CPT-J1100 Decadron 8mg (Dexamethasone) 16:55:24 CDT CPT-43118 Chest 2V Frontal and Lat 16:32:44 CDT
--- OUTSIDE RECORDS SUMMARY | 2016-11-04 17:06 | XMS REPORT | Clinical Summary ---
Author Author Admin, E Organization [employer] 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 Suzan Boo APRN Routine gynecological examination Bronchitis, acute with mild bronchospasm 466.0 Active Suzan Boo APRN Acute bronchitis Fibrocystic breast changes 610.1 Active Suzan Boo APRN Diffuse cystic 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 FLUTICASONE PROPIONATE HFA 02112073567 Active Renzo Thornton DO Active TROPICAMIDE 0.5 % OPHTH SOLN 1 drop PRN eye spasms TROPICAMIDE 38383100742 Active Samantha Stephan RMA Active RISPERDAL 4 MG ORAL TABS 1 tab at bedtime RISPERIDONE 82840471880 Active Samantha Stephan RMA Active LEVAQUIN 500 MG TABS 1 daily for infection LEVOFLOXACIN 57082859318 Active Suzan Boo APRN Active TESSALON PERLES 100 MG CAPS 1 three times a day as needed for cough BENZONATATE 56053582591 Active Suzan Boo APRN Active ZOFRAN 4 MG TABS 1 po q6hr PRN Nausea ONDANSETRON HCL No Longer Active Suzan Boo APRN Active FLUTICASONE PROPIONATE 50 MCG/ACT SUSP 2 sprays each nostril daily before bed. FLUTICASONE PROPIONATE 44492390919 No Longer Active Suzan Boo APRN Active ASPIRIN 325 MG ORAL TABS 1 tab q.d ASPIRIN 75900238357 No Longer Active Suzan Boo APRN Active HALOPERIDOL 10 MG ORAL TABS 1 tab q.d HALOPERIDOL 11731974465 No Longer Active Suzan Boo APRN Active GUAIFENESIN-CODEINE 100-10 MG/5ML SYRP 5ml every 4 to 6 hours as needed for cough GUAIFENESIN-CODEINE 32903198296 No Longer Active Suzan Boo APRN Active ZITHROMAX Z-EARNEST 250 MG TABS 2 today and then 1 daily for 4 days AZITHROMYCIN 07315721293 No Longer Active Suzan Boo APRN Active PREDNISONE 10 MG TABS 2 daily for 5 days then 1 daily for 5 days PREDNISONE 72524181381 Active Suzan Boo APRN Active CLONAZEPAM 1 MG ORAL TABS 1 twice a day and an additional 1 tablet every other day as needed for pseudoseizures or anxiety CLONAZEPAM 03101157806 Active Ahmet Carbajal MD Active HYDROCODONE-ACETAMINOPHEN 5-325 MG ORAL TABS 1 tab two times a day HYDROCODONE-ACETAMINOPHEN 10130609043 No Longer Active Ahmet Carbajal MD Active LAMICTAL 100 MG ORAL TABS 1 tab 2 times qd. LAMOTRIGINE 90317394749 Active Ahmet Carbajal MD Active PREDNISONE 20 MG TABS 2 daily for 5 days then 1 daily for 5 days PREDNISONE 51834505132 No Longer Active Ahmet Carbajal MD Active FLUTICASONE PROPIONATE 50 MCG/ACT SUSP 1 to 2 sprays each nostril daily for allergies FLUTICASONE PROPIONATE 96313755143 Active Tila Valenzuela Active BENADRYL 25 MG CAP 4 po at bedtime for insomnia DIPHENHYDRAMINE HCL 97572169760 No Longer Active Ahmet Carbajal MD Active ADVAIR DISKUS 250-50 MCG/DOSE INH AEPB 1 puff twice a day for asthma FLUTICASONE-SALMETEROL 74596685724 No Longer Active Ahmet Carbajal MD Active KLONOPIN 1 MG ORAL TABS 1 tab po TID CLONAZEPAM 90272126063 No Longer Active Ahmet Carbajal MD Active ABILIFY MAINTENA 400 MG IM SUSR 400mg injection every 26 days ARIPIPRAZOLE 60730558872 No Longer Active Ahmet Carbajal MD Active TRAMADOL HCL 50 MG TABS 1/2-1 tab TID PRN TRAMADOL HCL 63450911671 No Longer Active Ahmet Carbajal MD Active BACTRIM DS 800-160 MG TABS 1 twice a day SULFAMETHOXAZOLE- TRIMETHOPRIM 94435629108 No Longer Active Ahmet Carbajal MD Active PROAIR HFA 108 (90 BASE) MCG/ACT AERS 2 puffs four times a day as needed 2015 ALBUTEROL SULFATE 49847932919 Active Ahmet Carbajal MD Active EQ NICOTINE 21 MG/24HR TRANS PT24 Apply daily to stop smoking NICOTINE 88171099564 Active Ahmet Carbajal MD Active MONISTAT 7 COMBO PACK WOODROW 100 & 2 MG-% (9GM) VAG KIT 1 applicatorful per vagina q pm x 7 MICONAZOLE NITRATE 27299750347 No Longer Active Ahmet Carbajal MD Active FLAGYL 500 MG TAB 1 tablet by mouth bid METRONIDAZOLE 92291355772 No Longer Active Ahmet Carbajal MD Active OXYCODONE HCL ER 10 MG ORAL T12A 1/2 tab by mouth every 4 hours prn OXYCODONE HCL 32833695950 No Longer Active Ahmet Carbajal MD Active METHYLPREDNISOLONE 4 MG ORAL TABS po daily METHYLPREDNISOLONE 56829518829 No Longer Active Ahmet Carbajal MD Active LEVOFLOXACIN 500 MG ORAL TABS po daily LEVOFLOXACIN 46780411522 No Longer Active Ahmet Carbajal MD Active VIIBRYD 10 MG ORAL TABS Take 1 tablet once a day VILAZODONE HCL 38450051442 No Longer Active Ahmet Carbajal MD Active TOPAMAX 50 MG ORAL TABS 1 tab twice daily TOPIRAMATE 14321554517 No Longer Active Ahmet Carbajal MD Active DICLOFENAC SODIUM 50 MG TBEC 1 tablet by mouth four times daily PRN Pain 2015 DICLOFENAC SODIUM 77802270128 No Longer Active Ahmet Carbajal MD Active ADZENYS XR-ODT 6.3 MG ORAL TBED 1 tab po daily for ADHD AMPHETAMINE 91743347693 No Longer Active Ahmet Carbajal MD Active CHANTIX 1 MG TABS 1 twice a day to help quit smoking VARENICLINE TARTRATE 07829664441 No Longer Active Dipika Burgos MD Active CHANTIX STARTING MONTH EARNEST 0.5 MG X 11 & 1 MG X 42 TABS take as directed 2015 VARENICLINE TARTRATE 59500444945 No Longer Active Dipika Burgos MD Active TESSALON PERLES 100 MG CAP 1 to 2 tablets by mouth 3 times daily as needed for cough BENZONATATE 21246049953 No Longer Active Luigi Martínez APRN Active IMITREX 50 MG ORAL TABS 0.5 po x 1 PRN Headache. May repeat dose x 1 in 2 hours if needed SUMATRIPTAN SUCCINATE 31963062347 Active Ahmet Carbajal MD Active HYDROCODONE-ACETAMINOPHEN 5-325 MG TABS 1 to 2 four times a day as needed for pain use until can be seen by specialist HYDROCODONE- ACETAMINOPHEN 13505971073 No Longer Active Vishal Hui MD Active PROAIR HFA 108 (90 BASE) MCG/ACT AERS 2 puffs four times a day as needed 2015 ALBUTEROL SULFATE 60549573139 No Longer Active Vishal Hui MD Active PREDNISONE 20 MG TABS 2 daily for 5 days then 1 daily for 5 days PREDNISONE 41628762626 No Longer Active Vishal Hui MD Active ZITHROMAX Z-EARNEST 250 MG TABS 2 today and then 1 daily for 4 days AZITHROMYCIN 10738557814 No Longer Active Vishal Hui MD Active DICLOFENAC POTASSIUM TABS Take 1 tablet twice a day (pt. is not sure of the dose.) DICLOFENAC POTASSIUM TABS 38749341114 No Longer Active Vishal Hui MD Active VERAPAMIL HCL ER 120 MG ORAL CR-TABS Take 1 tablet by mouth twice a day. VERAPAMIL HCL 17906141832 Active Vishal Hui MD Active FLAGYL 500 MG TAB 1 tablet by mouth bid METRONIDAZOLE 52862577584 No Longer Active Vishal Hui MD Active VALIUM 5 MG TAB Take 1-2 tablets daily DIAZEPAM 60218362950 No Longer Active Fabiola Johnson APRN Active METOPROLOL TARTRATE 25 MG ORAL TABS 1/2 tablet twice daily for heart rate and blood pressure METOPROLOL TARTRATE 16882878083 No Longer Active Fabiola Johnson APRN Active MIRALAX ORAL POWD 17GMS DAILY IN WATER POLYETHYLENE GLYCOL 3350 57405713019 Active TAMARA Casey Active MIRALAX PACK 1 po qd PRN Constipation POLYETHYLENE GLYCOL 3350 01113984439 No Longer Active Ahmet Carbajal MD Active MINIPRESS 2 MG CAPS 4 cap po at night PRAZOSIN HCL 11712660823 No Longer Active Ahmet Carbajal MD Active PIROXICAM 20 MG CAPS 1 cap po qd PRN Pain PIROXICAM 73539171877 No Longer Active Ahmet Carbajal MD Active TRAMADOL HCL 50 MG TABS 1-2 po TID PRN Pain TRAMADOL HCL 56457684917 No Longer Active Ahmet Carbajal MD Active METOPROLOL TARTRATE 50 MG TAB 1 po bid METOPROLOL TARTRATE 06782160925 No Longer Active Ahmet Carbajal MD Active ABILIFY 15 MG ORAL TABS 1 tab daily ARIPIPRAZOLE 28094601745 No Longer Active Ahmet Carbajal MD Active PROZAC 20 MG ORAL CAPS 1 tab daily FLUOXETINE HCL 83692334418 No Longer Active Ahmet Carbajal MD Active AMBIEN 5 MG ORAL TABS 1 tab at bedtime ZOLPIDEM TARTRATE 84538554700 No Longer Active Ahmet Carbajal MD Active PREDNISONE 20 MG TAB 2 tabs daily for 4 days, 1 tab daily for 4 days, 1/2 tab daily for 4 days PREDNISONE 78909564080 No Longer Active Ahmet Carbajal MD Active KEFLEX 500 MG CAP 1 po TID x 10 days CEPHALEXIN 27698267064 No Longer Active Vishal Hui MD Active SAPHRIS 5 MG SUBL 1 po bid ASENAPINE MALEATE 82036566707 No Longer Active Jillina Frazell GROUND [employer] LINESMAN 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 LATUDA 80 MG TABS Take one by mouth daily LURASIDONE HCL 13381781820 No Longer Active Jillina Frazell GROUND [employer] LINESMAN 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 AMLODIPINE BESYLATE 5 MG TABS 1 tablet by mouth daily AMLODIPINE BESYLATE 25494324866 No Longer Active Jillina Fradwightl GROUND [employer] LINESMAN Active AMITRIPTYLINE HCL 100 MG TAB one at hs AMITRIPTYLINE HCL 45434869193 No Longer Active Vishal Hui MD Active TRAZODONE HCL 100 MG TAB take 1 at bedtime TRAZODONE HCL 45141541020 No Longer Active Vishal Hui MD Active VYVANSE 40 MG CAPS 1 daily, LISDEXAMFETAMINE DIMESYLATE 28578107449 No Longer Active Vishal Hui MD Active IBUPROFEN 600 MG TAB 1 po TID PRN IBUPROFEN 07636820458 No Longer Active Vishal Hui MD Active PROZAC 20 MG CAP Take one by mouth daily FLUOXETINE HCL 27684881756 No Longer Active Vishal Hui MD Active BACTRIM DS 800-160 MG TABS 1 pill by mouth twice daily SULFAMETHOXAZOLE-TRIMETHOPRIM 09510947868 No Longer Active Sahara Rodriguez MD PhD Active DIFLUCAN 150 MG TAB 1 tablet by mouth daily FLUCONAZOLE 76163467969 No Longer Active Vishal Hui MD Active TIZANIDINE HCL 4 MG TABS 1 po q6hr PRN Muscle Spasm/Back Pain TIZANIDINE HCL 29726528909 Active Vishal Hui MD Active CLINDAMYCIN HCL 150 MG CAPS 1 four times a day CLINDAMYCIN HCL 14683334069 No Longer Active Neeraj Collins MD Active KEFLEX 500 MG ORAL CAPS 1 cap QID by mouth CEPHALEXIN 62960111549 No Longer Active Neeraj Collins MD Active DIFLUCAN 150 MG TABS 1 pill every other day x 2 doses FLUCONAZOLE 59955855370 No Longer Active Sahara Rodriguez MD PhD Active MELATONIN 3 MG CAPS 2 po q hs MELATONIN 33252563929 No Longer Active Sahara Rodriguez MD PhD Active MULTIVITAMINS CAPS Take one by mouth daily MULTIPLE VITAMIN 69499440547 No Longer Active Sahara Rodriguez MD PhD Active BACTRIM DS 800-160 MG TAB 1 tab by mouth twice daily TRIMETHOPRIM-SULFAMETHOXAZOLE 31041369044 No Longer Active Sahara Rodriguez MD PhD Active [facility] PROBIOTIC ORAL CHEW 2 daily po PROBIOTIC PRODUCT 87642897838 No Longer Active Sahara Rodriguez MD PhD Active BACTRIM DS 800-160 MG TABS 1 po BID x 7 days SULFAMETHOXAZOLE-TRIMETHOPRIM 11084366029 No Longer Active Vishal Hui MD Active CHANTIX STARTING MONTH EARNEST 0.5 MG X 11 & 1 MG X 42 TABS 0.5mg daily for 3 days , then 0.5mg BID for 4 days, then 1mg BID VARENICLINE TARTRATE 46058488421 No Longer Active TAMARA Gray Active VERAPAMIL HCL CR 120 MG TAB CR 1 po bid VERAPAMIL HCL 29792687008 No Longer Active Vishal Hui MD Active METOPROLOL SUCCINATE 50 MG TB24 1 tablet by mouth daily METOPROLOL SUCCINATE 32327564592 No Longer Active Vishal Hui MD Active SAPHRIS 10 MG SUBL 1 tab po bid ASENAPINE MALEATE 86721586066 No Longer Active Vishal Hui MD Active LISINOPRIL 20 MG TABS 1 tab po qd LISINOPRIL 75521568239 No Longer Active Vishal Hui MD Active LATUDA 20 MG TABS Take one by mouth daily LURASIDONE HCL 39294048783 No Longer Active Vishal Hui MD Active TRAZODONE HCL 50 MG TABS 1/2 tab po qd prn for anxiety TRAZODONE HCL 21441018237 No Longer Active Vishal Hui MD Active OMEPRAZOLE 20 MG TBEC 1 po q a.m. 30min prior to first food intake OMEPRAZOLE 96286651579 Active TAMARA Casey Active RANITIDINE HCL 150 MG CAPS 1 twice a day RANITIDINE HCL 20250092014 Active Jillina Mauricio [employer] LINESMAN Active LINZESS 290 MCG CAPS Take one by mouth daily LINACLOTIDE 16382010548 No Longer Active Vishal Hui MD Active SAPHRIS 5 MG SUBL 1 tab po qd ASENAPINE MALEATE 14880826034 No Longer Active Vishal Hui MD Active ZALEPLON 10 MG CAPS 1 cap po every other night ZALEPLON 86898187470 No Longer Active Vishal Hui MD Active LYRICA 50 MG CAPS 1 tab po TID PREGABALIN 54070077419 No Longer Active Vishal Hui MD Active LORATADINE 10 MG TABS 1 tab po qd LORATADINE 85454818080 No Longer Active Vishal Hui MD Active VERAPAMIL HCL ER 180 MG CR-TABS 1 tab po bid VERAPAMIL HCL 56569848049 No Longer Active Vishal Hui MD Active MIRALAX POWD 1 capfull once daily POLYETHYLENE GLYCOL 3350 65397419011 No Longer Active Vishal Hui MD Active PREDNISONE 20 MG TABS 1 tab po qd PREDNISONE 17408634519 No Longer Active Renzo Thornton DO Active LEVOFLOXACIN 500 MG TABS 1 tab po qd LEVOFLOXACIN 93763739878 No Longer Active Renzo Thornton DO Active BUSPIRONE HCL 15 MG TABS 1 tab po TID BUSPIRONE HCL 26305478421 No Longer Active Renzo Thornton DO Active BENZTROPINE MESYLATE 1 MG TABS 1 tab po qd BENZTROPINE MESYLATE 24506327227 No Longer Active Renzo Thornton DO Active ATENOLOL 25 MG TABS 1 tab po qd ATENOLOL 12881053854 No Longer Active Renzo Thornton DO Active ESCITALOPRAM OXALATE 20 MG TABS 1 tab po qd ESCITALOPRAM OXALATE 08328710127 No Longer Active Renzo Thornton DO Active ADVAIR DISKUS 250-50 MCG/DOSE AEPB 1 puff BID FLUTICASONE-SALMETEROL 86606856691 No Longer Active Renzo Thornton DO Active PREDNISONE 20 MG TAB 2 tabs daily for 3 days, 1 tab daily for 3 days, 1/2 tab daily for 2 days PREDNISONE 99481221070 No Longer Active Vishal Hui MD Active CEFDINIR 300 MG CAPS by mouth twice a day CEFDINIR 27774453144 No Longer Active Vishal Hui MD Active LANSOPRAZOLE 30 MG CPDR 1 cap po qd LANSOPRAZOLE 30222414589 No Longer Active Vishal Hui MD Active BACLOFEN 20 MG TABS 1 tab po tid BACLOFEN 76764886695 No Longer Active Vishal Hui MD Active ADVAIR DISKUS 250-50 MCG/DOSE AEPB 1 puff BID ADVAIR DISKUS 250-50 MCG/DOSE AEPB FLUTICASONE-SALMETEROL Inactive ESCITALOPRAM OXALATE 20 MG TABS 1 tab po qd ESCITALOPRAM OXALATE 20 MG TABS 108599 ESCITALOPRAM OXALATE Inactive ATENOLOL 25 MG TABS 1 tab po qd ATENOLOL 25 MG TABS 273901 ATENOLOL Inactive BENZTROPINE MESYLATE 1 MG TABS 1 tab po qd BENZTROPINE MESYLATE 1 MG TABS 469832 BENZTROPINE MESYLATE Inactive BUSPIRONE HCL 15 MG TABS 1 tab po TID BUSPIRONE HCL 15 MG TABS 755326 BUSPIRONE HCL Inactive LEVOFLOXACIN 500 MG TABS 1 tab po qd LEVOFLOXACIN 500 MG TABS 174454 LEVOFLOXACIN Inactive PREDNISONE 20 MG TABS 1 tab po qd PREDNISONE 20 MG TABS 272304 PREDNISONE Inactive MIRALAX POWD 1 capfull once daily MIRALAX POWD 265965 POLYETHYLENE GLYCOL 3350 Inactive VERAPAMIL HCL ER 180 MG CR-TABS 1 tab po bid VERAPAMIL HCL ER 180 MG CR-TABS VERAPAMIL HCL Inactive LORATADINE 10 MG TABS 1 tab po qd LORATADINE 10 MG TABS 399174 LORATADINE Inactive LYRICA 50 MG CAPS 1 tab po TID LYRICA 50 MG CAPS PREGABALIN Inactive ZALEPLON 10 MG CAPS 1 cap po every other night ZALEPLON 10 MG CAPS 727089 ZALEPLON Inactive SAPHRIS 5 MG SUBL 1 tab po qd SAPHRIS 5 MG SUBL ASENAPINE MALEATE Inactive TRAZODONE HCL 50 MG TABS 1/2 tab po qd prn for anxiety TRAZODONE HCL 50 MG TABS 613066 TRAZODONE HCL Inactive LATUDA 20 MG TABS Take one by mouth daily LATUDA 20 MG TABS LURASIDONE HCL Inactive LISINOPRIL 20 MG TABS 1 tab po qd LISINOPRIL 20 MG TABS 269396 LISINOPRIL Inactive SAPHRIS 10 MG SUBL 1 [...] twice daily BACTRIM DS 800-160 MG TAB 845378 TRIMETHOPRIM-SULFAMETHOXAZOLE Inactive MULTIVITAMINS CAPS Take one by mouth daily MULTIVITAMINS CAPS MULTIPLE VITAMIN Inactive MELATONIN 3 MG CAPS 2 po q hs MELATONIN 3 MG CAPS 133772 MELATONIN Inactive KEFLEX 500 MG ORAL CAPS 1 cap QID by mouth KEFLEX 500 MG ORAL CAPS 386411 CEPHALEXIN Inactive CLINDAMYCIN HCL 150 MG CAPS 1 four times a day CLINDAMYCIN HCL 150 MG CAPS 248784 CLINDAMYCIN HCL Inactive DIFLUCAN 150 MG TAB 1 tablet by mouth daily DIFLUCAN 150 MG TAB 743862 FLUCONAZOLE Inactive PROZAC 20 MG CAP Take one by mouth daily PROZAC 20 MG CAP 804627 FLUOXETINE HCL Inactive IBUPROFEN 600 MG TAB 1 po TID PRN IBUPROFEN 600 MG TAB 174581 IBUPROFEN Inactive VYVANSE 40 MG CAPS 1 daily, VYVANSE 40 MG CAPS LISDEXAMFETAMINE DIMESYLATE Inactive TRAZODONE HCL 100 MG TAB take 1 at bedtime TRAZODONE HCL 100 MG TAB 228438 TRAZODONE HCL Inactive AMITRIPTYLINE HCL 100 MG TAB one at hs AMITRIPTYLINE HCL 100 MG TAB 404711 AMITRIPTYLINE HCL Inactive AMLODIPINE BESYLATE 5 MG TABS 1 tablet by mouth daily AMLODIPINE BESYLATE 5 MG TABS 053831 AMLODIPINE BESYLATE Inactive LATUDA 80 MG TABS Take one by mouth daily LATUDA 80 MG TABS LURASIDONE HCL Inactive SAPHRIS 5 MG SUBL 1 po bid SAPHRIS 5 MG SUBL ASENAPINE MALEATE Inactive PREDNISONE 20 MG TAB 2 tabs daily for 4 days, 1 tab daily for 4 days, 1/2 tab daily for 4 days PREDNISONE 20 MG TAB 865302 PREDNISONE Inactive AMBIEN 5 MG ORAL TABS 1 tab at bedtime AMBIEN 5 MG ORAL TABS 083468 ZOLPIDEM TARTRATE Inactive PROZAC 20 MG ORAL CAPS 1 tab daily PROZAC 20 MG ORAL CAPS 778547 FLUOXETINE HCL Inactive ABILIFY 15 MG ORAL TABS 1 tab daily ABILIFY 15 MG ORAL TABS 045008 ARIPIPRAZOLE Inactive METOPROLOL TARTRATE 50 MG TAB 1 po bid METOPROLOL TARTRATE 50 MG TAB 172858 METOPROLOL TARTRATE Inactive TRAMADOL HCL 50 MG TABS 1-2 po TID PRN Pain TRAMADOL HCL 50 MG TABS 364014 TRAMADOL HCL Inactive PIROXICAM 20 MG CAPS 1 cap po qd PRN Pain PIROXICAM 20 MG CAPS 525217 PIROXICAM Inactive MINIPRESS 2 MG CAPS 4 cap po at night MINIPRESS 2 MG CAPS 506244 PRAZOSIN HCL Inactive MIRALAX PACK 1 po qd PRN Constipation MIRALAX PACK 563029 POLYETHYLENE GLYCOL 3350 Inactive METOPROLOL TARTRATE 25 MG ORAL TABS 1/2 tablet twice daily for heart rate and blood pressure METOPROLOL TARTRATE 25 MG ORAL TABS 482175 METOPROLOL TARTRATE Inactive VALIUM 5 MG TAB Take 1-2 tablets daily VALIUM 5 MG TAB 625451 DIAZEPAM Inactive FLAGYL 500 MG TAB 1 tablet by mouth bid FLAGYL 500 MG TAB 935501 METRONIDAZOLE Inactive DICLOFENAC POTASSIUM TABS Take 1 tablet twice a day (pt. is not sure of the dose.) DICLOFENAC POTASSIUM TABS DICLOFENAC POTASSIUM TABS Inactive ZITHROMAX Z-EARNEST 250 MG TABS 2 today and then 1 daily for 4 days ZITHROMAX Z-EARNEST 250 MG TABS 3961656 AZITHROMYCIN Inactive PREDNISONE 20 MG TABS 2 daily for 5 days then 1 daily for 5 days PREDNISONE 20 MG TABS 342286 PREDNISONE Inactive PROAIR HFA 108 (90 BASE) MCG/ACT AERS 2 puffs four times a day as needed 2015 PROAIR HFA 108 (90 BASE) MCG/ACT AERS ALBUTEROL SULFATE Inactive HYDROCODONE-ACETAMINOPHEN 5-325 MG TABS 1 to 2 four times a day as needed for pain use until can be seen by specialist HYDROCODONE- ACETAMINOPHEN 5-325 MG TABS 557251 HYDROCODONE-ACETAMINOPHEN Inactive TESSALON PERLES 100 MG CAP 1 to 2 tablets by mouth 3 times daily as needed for cough TESSALON PERLES 100 MG CAP 070956 BENZONATATE Inactive CHANTIX STARTING MONTH EARNEST 0.5 [...] Pain 2015 DICLOFENAC SODIUM 50 MG TBEC 705392 DICLOFENAC SODIUM Inactive TOPAMAX 50 MG ORAL TABS 1 tab twice daily TOPAMAX 50 MG ORAL TABS 178207 TOPIRAMATE Inactive VIIBRYD 10 MG ORAL TABS Take 1 tablet once a day VIIBRYD 10 MG ORAL TABS VILAZODONE HCL Inactive LEVOFLOXACIN 500 MG ORAL TABS po daily LEVOFLOXACIN 500 MG ORAL TABS 244676 LEVOFLOXACIN Inactive METHYLPREDNISOLONE 4 MG ORAL TABS po daily METHYLPREDNISOLONE 4 MG ORAL TABS 173864 METHYLPREDNISOLONE Inactive OXYCODONE HCL ER 10 MG ORAL T12A 1/2 tab by mouth every 4 hours prn OXYCODONE HCL ER 10 MG ORAL T12A OXYCODONE HCL Inactive FLAGYL 500 MG TAB 1 tablet by mouth bid FLAGYL 500 MG TAB 740060 METRONIDAZOLE Inactive MONISTAT 7 COMBO PACK WOODROW 100 & 2 MG-% (9GM) VAG KIT 1 applicatorful per vagina q pm x 7 MONISTAT 7 COMBO PACK WOODROW 100 & 2 MG-% (9GM) VAG KIT MICONAZOLE NITRATE Inactive BACTRIM DS 800-160 MG TABS 1 twice a day BACTRIM DS 800-160 MG TABS 656892 SULFAMETHOXAZOLE-TRIMETHOPRIM Inactive TRAMADOL HCL 50 MG TABS 1/2-1 tab TID PRN TRAMADOL HCL 50 MG TABS 946536 TRAMADOL HCL Inactive ABILIFY MAINTENA 400 MG IM SUSR 400mg injection every 26 days ABILIFY MAINTENA 400 MG IM SUSR ARIPIPRAZOLE Inactive KLONOPIN 1 MG ORAL TABS 1 tab po TID KLONOPIN 1 MG ORAL TABS 715252 CLONAZEPAM Inactive ADVAIR DISKUS 250-50 MCG/DOSE INH AEPB 1 puff twice a day for asthma ADVAIR DISKUS 250-50 MCG/DOSE INH AEPB FLUTICASONE- SALMETEROL Inactive BENADRYL 25 MG CAP 4 po at bedtime for insomnia BENADRYL 25 MG CAP DIPHENHYDRAMINE HCL Inactive PREDNISONE 20 MG TABS 2 daily for 5 days then 1 daily for 5 days PREDNISONE 20 MG TABS 186709 PREDNISONE Inactive HYDROCODONE-ACETAMINOPHEN 5-325 MG ORAL TABS 1 tab two times a day HYDROCODONE-ACETAMINOPHEN 5-325 MG ORAL TABS 375865 HYDROCODONE-ACETAMINOPHEN Inactive ZITHROMAX Z-EARNEST 250 MG TABS 2 today and then 1 daily for 4 days ZITHROMAX Z-EARNEST 250 MG TABS 8970354 AZITHROMYCIN Inactive GUAIFENESIN-CODEINE 100-10 MG/5ML SYRP 5ml every 4 to 6 hours as needed for cough GUAIFENESIN-CODEINE 100-10 MG/5ML SYRP 949526 GUAIFENESIN-CODEINE Inactive HALOPERIDOL 10 MG ORAL TABS 1 tab q.d HALOPERIDOL 10 MG ORAL TABS 371356 HALOPERIDOL Inactive ASPIRIN 325 MG ORAL TABS 1 tab q.d ASPIRIN 325 MG ORAL TABS 475478 ASPIRIN Inactive FLUTICASONE PROPIONATE 50 MCG/ACT SUSP 2 sprays each nostril daily before bed. FLUTICASONE PROPIONATE 50 MCG/ACT SUSP 1255612 FLUTICASONE PROPIONATE Inactive ZOFRAN 4 MG TABS 1 po q6hr PRN Nausea ZOFRAN 4 MG TABS 750171 ONDANSETRON HCL Inactive CEFDINIR 300 MG CAPS by mouth twice a day CEFDINIR 300 MG CAPS 711332 CEFDINIR Inactive PREDNISONE 20 MG TAB 2 tabs daily for 3 days, 1 tab daily for 3 days, 1/2 tab daily for 2 days PREDNISONE 20 MG TAB 712844 PREDNISONE Inactive BACTRIM DS 800-160 MG TABS 1 po BID x 7 days BACTRIM DS 800-160 MG TABS 19820521 SULFAMETHOXAZOLE-TRIMETHOPRIM Inactive DIFLUCAN 150 MG TABS 1 pill every other day x 2 doses DIFLUCAN 150 MG TABS 493452 FLUCONAZOLE Inactive BACTRIM DS 800-160 MG TABS 1 pill by mouth twice daily BACTRIM DS 800-160 MG TABS 19820521 SULFAMETHOXAZOLE-TRIMETHOPRIM Inactive KEFLEX 500 MG CAP 1 po TID x 10 days KEFLEX 500 MG CAP 007268 CEPHALEXIN Inactive Advance Directives Directive Description Start [...] % 11.0-15.0 platelet count 443 THOUSAND/UL 10*3/mm3 276-333 1637/03/01 mean platelet volume 8.2 fL 7.5-12.5 Lab [...] 369 10^3/MM^3 10*3/mm3 142-424 Lab Report: Chlamydia/GC APTIMA/[id number] - Lab chlamydia DNA probe NOT DETECTED NOT DETECTED Lab Report: Chlamydia/GC APTIMA/[id number] - Microbiology Neisseria gonorrhoeae DNA probe NOT DETECTED NOT DETECTED Lab Report: Chlamydia/GC APTIMA/[id number], Urinalysis, Complete, with Reflex ... - Lab chlamydia DNA probe NOT DETECTED NOT DETECTED Lab Report: Chlamydia/GC APTIMA/[id number], Urinalysis, Complete, with Reflex ... - Microbiology Neisseria gonorrhoeae DNA probe NOT DETECTED NOT DETECTED Lab Report: Chlamydia/GC APTIMA/39492, Urinalysis, Complete, with Reflex ... - Urinalysis microalbumin/total urine volume 2 mg/L Units converted. See lab report for original value. microalbumin/creatinine ratio, urine 9 MCG/MG CREAT mg/L <30 Lab Report: Comp. Metabolic Panel - Chemistry urea nitrogen, blood 8 mg/dL 7-18 creatinine, serum 0.75 mg/dL 0.55-1.30 alanine aminotransferase (SGPT), serum 49 U/L 12-78 aspartate aminotransferase (SGOT), serum 28 U/L 15-37 calcium, serum 9.4 mg/dL 8.5-10.1 bilirubin, serum, total 0.30 mg/dL 0.00-1.00 sodium, serum 140 mmol/L [id number] 7821/08/08 carbon dioxide, venous blood 33.7 mmol/L 21.0-32.0 [...] mg/dL Encounters Code Encounter Date Provider Facility [id number] Level 3 Est. Patient 11:15:58 [employer] Renzo Thornton DO [facility] CPT-94725 Level 3 Est. Patient 15:28:23 [employer] [facility] CPT-10895 Level 4 Est. Patient 10:20:54 [employer] [facility] CPT-25762 Level 3 Est. Patient 11:47:37 [employer] Ahmet Carbajal MD [facility] CPT-17969 Level 3 Est. Patient 10:40:11 [employer] Ahmet Carbajal MD [facility] CPT-37268 Level 3 Est. Patient 15:07:06 [employer] Neeraj Collins MD [facility] CPT-36030 Level 4 Est. Patient 14:45:00 [employer] Ahmet Carbajal MD [facility] CPT-82488 Level 3 Est. Patient 13:59:59 CDT [facility] CPT-09981 Level 3 Est. Patient 18:18:53 CDT Neeraj Collins MD [facility] CPT-79058 Level 3 Est. Patient 15:50:44 CDT Vishal Hui MD [facility] CPT-52686 Level 3 Est. Patient 11:36:17 CDT Ahmet Carbajal MD [facility] CPT-14394 Level 3 Est. Patient 13:29:16 CDT Vishal Hui MD [facility] CPT-56999 Level 3 Est. Patient 14:27:52 CDT Neeraj Collins MD [facility] CPT-21530 Level 3 Est. Patient 08:56:03 CDT [facility] CPT-58063 Level 4 Est. Patient 12:11:48 CDT [facility] CPT-54851 Level 3 New Patient 16:53:37 CDT Albert Caldera MD [facility] CPT-37000 Level 3 Est. Patient 11:25:49 CDT Renzo Thornton DO [facility] CPT-90348 Level 3 Est. Patient 15:22:01 CDT Ahmet Carbajal MD [facility] CPT-93098 Level 4 Est. Patient 09:00:51 [employer] Vishal Hui MD [facility] CPT-04002 Level 3 Est. Patient 11:37:33 [employer] Vishal Hui MD [facility] CPT-04179 Level 3 Est. Patient 08:41:09 [employer] Vishal Hui MD [facility] CPT-49159 Level 4 Est. Patient 10:19:35 [employer] Vishal Hui MD [facility] CPT-49350 Level 3 Est. Patient 13:35:45 CDT Vishal Hui MD [facility] CPT-46125 Level 4 Est. Patient 10:08:37 CDT Vishal Hui MD [facility] CPT-21233 Level 3 Est. Patient 11:22:10 CDT Vishal Hui MD [facility] CPT-59711 Level 3 Est. Patient 11:03:32 CDT Sahara Rodriguez MD [facility] CPT-97712 Level 3 Est. Patient 09:41:35 CDT Vishal Hui MD [facility] CPT-97252 Level 3 Est. Patient 12:00:41 CDT Neeraj Collins MD [facility] CPT-61880 Level 3 Est. Patient 09:16:24 CDT Vishal Hui MD [facility] CPT-35311 Level 4 Est. Patient 13:59:09 CDT Neeraj Collins MD [facility] CPT-07770 Level 3 Est. Patient 15:19:43 CDT Renzo Thornton DO [facility] CPT-30615 Level 3 Est. Patient 18:10:26 CDT Sahara Rodriguez MD [facility] CPT-68814 Level 3 Est. Patient 14:49:50 CDT Vishal Hui MD [facility] CPT-06969 Level 4 Est. Patient 18:41:46 CDT Neeraj Collins MD [facility] CPT-42000 Level 4 Est. Patient 09:18:38 [employer] Vishal Hui MD [facility] CPT-13699 Level 3 Est. Patient 14:43:55 [employer] Vishal Hui MD [facility] CPT-05613 Level 3 Est. Patient 15:26:33 [employer] Sahara Rodriguez MD PhD [facility] CPT-79126 Level 3 Est. Patient 10:32:14 [employer] Vishal Hui MD [facility] CPT-10598 Level 3 Est. Patient 15:12:52 [employer] Vishal Hui MD [facility] CPT-14281 Level 4 Est. Patient 09:19:27 CDT Vishal Hui MD [facility] CPT-56392 Level 3 Est. Patient 15:53:00 CDT Renzo Thornton [facility] CPT-81750 Level 3 Est. Patient 15:50:30 CDT Renzo Thornton [facility] CPT-30783 Level 3 Est. Patient 16:55:24 CDT Vishal Hui MD [facility] Procedures Code Procedure Name Date Entry Date Standard Description CPT-78320 Smoking Cessation counseling 11:15:58 [employer] CPT-G0439 [facility] Annual Wellness Exam 09:30:58 [employer] CPT-73396 TSH - LAB USE ONLY 08:50:26 [employer] CPT-86472 CBC - LAB USE ONLY 08:50:26 [employer] CPT-85974 Venipuncture Draw Fee 08:50:26 [employer] CPT-43938 Abx/Therapy Injection 17:34:30 [employer] CPT-01034 Nexplanon Removal with Reinsertion 14:09:32 CDT CPT-J7307 Nexplanon (Implant) 14:09:32 CDT CPT-OV Office Visit 14:09:32 CDT CPT-74863 UA w micro - LAB USE ONLY 16:21:13 CDT CPT-16958 Wet Mount - LAB USE ONLY 16:21:13 CDT CPT-02223 First Vx - Ix admin for Medicare patients 14:37:47 CDT CPT-60046 Fluzone Preservative Free Intramuscular Suspension 14:37 :47 CDT CPT-07292 Abx/Therapy Injection 13:54:22 CDT CPT-02976 Abx/Therapy Injection 08:47:09 CDT CPT-30621 Abx/Therapy Injection 13:29:56 CDT CPT-47380 Abx/Therapy Injection 08:36:16 CDT CPT-86949 Wet Mount - LAB USE ONLY 17:44:58 CDT CPT-71575 UA w micro - LAB USE ONLY 17:44:58 CDT CPT-96235 CMP - LAB USE ONLY 17:44:58 CDT CPT-91086 Venipuncture Draw Fee 17:44:58 CDT CPT-15425 Cervical Min 4V - XRAY USE ONLY 09:01:40 CDT CPT-33916 Chest 2V Frontal and Lat - XRAY USE ONLY 11:06:31 CDT CPT-20248 EKG Trac and Interp - XRAY USE ONLY 11:31:43 CDT 08/26 CPT-J3420 Vitamin B12 1000mcg (Cyanocobalamin) 08:10:26 [employer] 04/12 CPT-01246 Abx/Therapy Injection 08:10:26 [employer] CPT-G0438 Initial Annual Wellness Exam 19:01:01 [employer] CPT-J3420 Vitamin B12 1000mcg (Cyanocobalamin) 16:57:46 CDT 08/14 CPT-41220 Recombivax HB Injection Suspension 5 MCG/0.5ML 08:37:50 [employer] CPT-38035 Immunization Single Admin 08:37:50 [employer] CPT-J3420 Vitamin B12 1000mcg (Cyanocobalamin) 08:32:16 [employer] 03/11 CPT-00514 Abx/Therapy Injection 08:32:16 [employer] CPT-66275 Chest 2V Frontal and Lat 11:46:38 [employer] CPT-51930 Venipuncture Draw Fee 09:12:45 [employer] CPT-J3420 Vitamin B12 1000mcg (Cyanocobalamin) 08:50:15 [employer] 02/08 CPT-47298 Abx/Therapy Injection 08:50:15 [employer] CPT-Cryo Cryotherapy 10:19:35 [employer] CPT-000 Give Appropriate Flu Vaccine 09:22:16 CDT CPT-J3420 Vitamin B12 1000mcg (Cyanocobalamin) 19:08:57 CDT 01/11 CPT-70119 Abx/Therapy Injection 19:08:57 CDT CPT-J3420 Vitamin B12 1000mcg (Cyanocobalamin) 08:19:08 CDT 12/11 CPT-80300 Abx/Therapy Injection 08:19:08 CDT CPT-J3420 Vitamin B12 1000mcg (Cyanocobalamin) 14:48:00 CDT 11/09 CPT-67604 Abx/Therapy Injection 14:47:59 CDT CPT-J3420 Vitamin B12 1000mcg (Cyanocobalamin) 08:34:04 CDT 10/09 CPT-64964 Abx/Therapy Injection 08:34:04 CDT CPT-J3420 Vitamin B12 1000mcg (Cyanocobalamin) 09:18:52 CDT 09/11 CPT-81136 Abx/Therapy Injection 09:18:52 CDT CPT-J3420 Vitamin B12 1000mcg (Cyanocobalamin) 08:35:44 CDT 09/04 CPT-58412 Abx/Therapy Injection 08:35:44 CDT CPT-92420 Immunization Single Admin 11:07:16 CDT CPT-15950 Hepatitis B adult IM 11:07:16 CDT CPT-J3420 Vitamin B12 1000mcg (Cyanocobalamin) 11:00:49 CDT 08/28 CPT-J1040 Depo Medrol 80 mg (Methyl Prednisolone Acetate) 11:00: 49 CDT CPT-34895 Abx/Therapy Injection 11:00:49 CDT CPT-J1040 Depo Medrol 80 mg (Methyl Prednisolone Acetate) 09:16: 23 CDT CPT-J3420 Vitamin B12 1000mcg (Cyanocobalamin) 08:27:05 CDT 08/20 CPT-48200 Abx/Therapy Injection 08:27:05 CDT CPT-94812 Recombivax HB Injection Suspension 5 MCG/0.5ML 10:00:41 CDT CPT-92338 Administration single or combination vaccine inc oral 10 :00:41 CDT CPT-01343 Sono transvag pelvis non OB uterus ovaries cervix 16:36: 57 CDT CPT-39627 LS spine comp w obliq 09:50:55 [employer] CPT-63999 Abd compl w upright 09:50:55 [employer] CPT-J1100 Decadron 4mg (Dexamethasone) 15:51:24 [employer] CPT-J1030 Depo Medrol 40 mg (Methyl Prednisolone Acetate) 15:51: 24 [employer] CPT-53584 Abx/Therapy Injection 15:51:24 [employer] CPT-J1100 Decadron 4mg (Dexamethasone) 15:26:33 [employer] CPT-J1030 Depo Medrol 40 mg (Methyl Prednisolone Acetate) 15:26: 33 [employer] CPT-58480 Sono retroperitoneal complete kidneys and bladder 17:15: 30 CDT CPT-49342 Abd compl w upright 16:09:25 CDT CPT-J1100 Decadron 8mg (Dexamethasone) 17:07:57 CDT CPT-47248 Abx/Therapy Injection 17:07:57 CDT CPT-J1100 Decadron 8mg (Dexamethasone) 16:55:24 CDT CPT-41487 Chest 2V Frontal and Lat 16:32:44 CDT
--- OUTSIDE RECORDS SUMMARY | 2016-11-04 17:06 | XMS REPORT ---
Author Author [email or web address] Medical Staff Organization [facility] Address [address] [place], [place] [id number] Phone [phone] Summary purpose TRANSITION OF CARE AUTO GENERATION [...]
--- OUTSIDE RECORDS SUMMARY | 2016-11-04 17:09 | XMS REPORT | Clinical Summary ---
Author Author Admin, [facility] Organization [email or web address] Address Unknown Phone Unavailable Allergies, Adverse Reactions, [...] multiple sites Morbid obesity 278.01 Active Juliet Kmibrough APRN Morbid obesity 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 Active [...] Active Ahmet Carbajal MD Generalized anxiety disorder Pedodontist well woman exam V72.31 Resolved Suzan Boo [...] Jim Hui MD UTI ICD-599.0 Inactive Vishal uHi MD Headache, atypical ICD-784.0 Jim Caldera MD [...] Boo APRN DYSURIA ICD-788.1 Inactive Suzan Boo LUBRICATING SPECIALIST Cellulitis and abscess of breast ICD-611.0 Inactive Ahmet Carbajal MD Nondisplaced transverse fracture of shaft of left fibula, subsequent encounter for closed fracture with routine healing Inactive Suzan Boo APRN Bronchitis, acute ICD-466.0 Inactive Ahmet Carbajal MD Pedodontist well woman exam ICD-V72.31 Inactive Suzan Boo LUBRICATING SPECIALIST Bronchitis, acute with mild bronchospasm ICD-466.0 Inactive Suzan Boo APRN Tracheitis ICD-464.10 Inactive Suzan Boo APRN Impetigo ICD-684 Inactive Suzan Boo LUBRICATING SPECIALIST Furuncle of buttock ICD-680.5 Inactive Suzan [...] % OINT apply twice a day MUPIROCIN 88606683746 Active Suzan Boo APRN Active BACTRIM DS 800-160 MG TABS 1 twice a day SULFAMETHOXAZOLE- TRIMETHOPRIM 38655928848 Active Suzan Boo APRN Active [id number] 50-325-40 MG TABS 1 to 2 four times a day as needed for headache [id number] 01704084288 Active Suzan Boo APRN Active METOCLOPRAMIDE HCL 10 MG TABS 1 two times as needed for nausea and headaches METOCLOPRAMIDE HCL 87042318153 Active Meena Ortiz MA Active NYSTATIN 339876 UNIT/GM CREA apply three times a day to yeast rash NYSTATIN 60099938472 Active Suzan Boo APRN Active AMITIZA 24 MCG ORAL CAPS one capsule twice daily LUBIPROSTONE 72301335978 Active Suzan Boo APRN Active MIRALAX ORAL POWD 17GMS DAILY IN WATER POLYETHYLENE GLYCOL 3350 02163948651 No Longer Active Suzan Boo APRN Active LACTULOSE 10 GM/15ML ORAL SOLN 30mL oral BID for IBS-C LACTULOSE 87617182454 No Longer Active Suzan Boo APRN Active BACTRIM DS 800-160 MG TAB Take one (1) tablet by mouth twice a day for 5 days TRIMETHOPRIM-SULFAMETHOXAZOLE 01691885508 No Longer Active Suzan Boo APRN Active MUPIROCIN 2 % OINT apply twice a day MUPIROCIN 91928253305 No Longer Active Suzan Boo APRN Active BACTRIM DS 800-160 MG TABS 1 twice a day SULFAMETHOXAZOLE-TRIMETHOPRIM 72752068424 No Longer Active Suzan Boo APRN Active DIFLUCAN 150 MG TABS 1 by mouth for yeast FLUCONAZOLE 74203531744 No Longer Active Suzan Boo APRN Active LINZESS 290 MCG ORAL CAPS 1 tab 30 min prior to first meal each day. LINACLOTIDE 95649592435 No Longer Active Sheila Calderon LPN Active AMITIZA 8 MCG ORAL CAPS 1 tab BID LUBIPROSTONE 95287502879 No Longer Active Lynda Ninoska BHAKTAN Active TESSALON PERLES 100 MG CAPS 1 three times a day as needed for cough BENZONATATE 98335271771 No Longer Active Suzan Boo APRN Active BACTRIM DS 800-160 MG TABS 1 twice a day SULFAMETHOXAZOLE-TRIMETHOPRIM 93066428936 No Longer Active Suzan Boo APRN Active DIFLUCAN 150 MG TABS 1 by mouth for yeast FLUCONAZOLE 85559142415 No Longer Active Suzan Boo APRN Active EQ NICOTINE 21 MG/24HR TRANS PT24 Apply daily to stop smoking NICOTINE 01128758339 No Longer Active Suzan Boo APRN Active PREDNISONE 10 MG TABS 2 daily for 5 days then 1 daily for 5 days PREDNISONE 31798693873 No Longer Active Suzan Boo APRN Active LEVAQUIN 500 MG TABS 1 daily for infection LEVOFLOXACIN 91640273711 No Longer Active Suzan Boo APRN Active TROPICAMIDE 0.5 % OPHTH SOLN 1 drop PRN eye spasms TROPICAMIDE 67936449881 No Longer Active Suzan Boo APRN Active PREDNISONE 20 MG TAB 1 tablet daily x 4 days PREDNISONE 67007081751 No Longer Active Suzan Boo APRN Active ACETAMINOPHEN-CODEINE 120-12 MG/5ML SOLN 5 ml by mouth every 4-6 hours if needed for cough ACETAMINOPHEN-CODEINE 63114893058 No Longer Active Suzan Boo APRN Active KEFLEX 500 MG CAP 1 po qid CEPHALEXIN 04811685422 No Longer Active Suzan Boo APRN Active FLOVENT HFA 110 MCG/ACT AERO 2 puffs inhaled b.i.d. FLUTICASONE PROPIONATE HFA 74988180335 Active Renzo Thornton Active RISPERDAL 4 MG ORAL TABS 1 tab at bedtime RISPERIDONE 81212446822 Active Samantha Rothman RMA Active ZOFRAN 4 MG TABS 1 po q6hr PRN Nausea ONDANSETRON HCL No Longer Active Suzan Boo APRN Active FLUTICASONE PROPIONATE 50 MCG/ACT SUSP 2 sprays each nostril daily before bed. FLUTICASONE PROPIONATE 40603207825 No Longer Active Suzan Boo APRN Active ASPIRIN 325 MG ORAL TABS 1 tab q.d ASPIRIN 36181360043 No Longer Active Suzan Boo APRN Active HALOPERIDOL 10 MG ORAL TABS 1 tab q.d HALOPERIDOL 34714523978 No Longer Active Suzan Boo APRN Active GUAIFENESIN-CODEINE 100-10 MG/5ML SYRP 5ml every 4 to 6 hours as needed for cough GUAIFENESIN-CODEINE 48506590620 No Longer Active Suzan Boo APRN Active ZITHROMAX Z-EARNEST 250 MG TABS 2 today and then 1 daily for 4 days AZITHROMYCIN 27577180865 No Longer Active Suzan Boo APRN Active CLONAZEPAM 1 MG ORAL TABS 1 twice a day and an additional 1 tablet every other day as needed for pseudoseizures or anxiety CLONAZEPAM 69711949570 Active Suzan Boo APRN Active HYDROCODONE-ACETAMINOPHEN 5-325 MG ORAL TABS 1 tab two times a day HYDROCODONE-ACETAMINOPHEN 05802481782 No Longer Active Ahmet Carbajal MD Active LAMICTAL 100 MG ORAL TABS 1 tab 2 times qd. LAMOTRIGINE 98245549581 Active Ahmet Carbajal MD Active PREDNISONE 20 MG TABS 2 daily for 5 days then 1 daily for 5 days PREDNISONE 55185064952 No Longer Active Ahmet Carbajal MD Active FLUTICASONE PROPIONATE 50 MCG/ACT SUSP 1 to 2 sprays each nostril daily for allergies FLUTICASONE PROPIONATE 54627962677 Active Tila Nicolas Active BENADRYL 25 MG CAP 4 po at bedtime for insomnia DIPHENHYDRAMINE HCL 30939269552 No Longer Active Amhet Carbajal MD Active ADVAIR DISKUS 250-50 MCG/DOSE INH AEPB 1 puff twice a day for asthma FLUTICASONE-SALMETEROL 19999423579 No Longer Active Ahmet Carbajal MD Active KLONOPIN 1 MG ORAL TABS 1 tab po TID CLONAZEPAM 98271870158 No Longer Active Ahmet Carbajal MD Active ABILIFY MAINTENA 400 MG IM SUSR 400mg injection every 26 days ARIPIPRAZOLE 14825565985 No Longer Active Ahmet Carbajal MD Active TRAMADOL HCL 50 MG TABS 1/2-1 tab TID PRN TRAMADOL HCL 96992760011 No Longer Active Ahmet Carbajal MD Active BACTRIM DS 800-160 MG TABS 1 twice a day SULFAMETHOXAZOLE- TRIMETHOPRIM 70470887681 No Longer Active Ahmet Carbajal MD Active PROAIR HFA 108 (90 BASE) MCG/ACT AERS 2 puffs four times a day as needed 2015 ALBUTEROL SULFATE 73379454020 Active Honey Hinton LUBRICATING SPECIALIST Active MONISTAT 7 COMBO PACK WOODROW 100 & 2 MG-% (9GM) VAG KIT 1 applicatorful per vagina q pm x 7 MICONAZOLE NITRATE 61064623859 No Longer Active Ahmet Carbajal MD Active FLAGYL 500 MG TAB 1 tablet by mouth bid METRONIDAZOLE 10767149463 No Longer Active Ahmet Carbajal MD Active OXYCODONE HCL ER 10 MG ORAL T12A 1/2 tab by mouth every 4 hours prn OXYCODONE HCL 91402634959 No Longer Active Ahmet Carbajal MD Active METHYLPREDNISOLONE 4 MG ORAL TABS po daily METHYLPREDNISOLONE 48111149689 No Longer Active Ahmet Carbajal MD Active LEVOFLOXACIN 500 MG ORAL TABS po daily LEVOFLOXACIN 20908627154 No Longer Active Ahmet Carbajal MD Active VIIBRYD 10 MG ORAL TABS Take 1 tablet once a day VILAZODONE HCL 15529430091 No Longer Active Ahmet Carbajal MD Active TOPAMAX 50 MG ORAL TABS 1 tab twice daily TOPIRAMATE 51039605381 No Longer Active Ahmet Carbajal MD Active DICLOFENAC SODIUM 50 MG TBEC 1 tablet by mouth four times daily PRN Pain 2015 DICLOFENAC SODIUM 14684193852 No Longer Active Ahmet Carbajal MD Active ADZENYS XR-ODT 6.3 MG ORAL TBED 1 tab po daily for ADHD AMPHETAMINE 57293773968 No Longer Active Ahmet Carbajal MD Active CHANTIX 1 MG TABS 1 twice a day to help quit smoking VARENICLINE TARTRATE 27601327064 No Longer Active Dipika Burgos MD Active CHANTIX STARTING MONTH EARNEST 0.5 MG X 11 & 1 MG X 42 TABS take as directed 2015 VARENICLINE TARTRATE 83608830994 No Longer Active Dipika Burgos MD Active TESSALON PERLES 100 MG CAP 1 to 2 tablets by mouth 3 times daily as needed for cough BENZONATATE 75368393933 No Longer Active Luigi Martínez APRN Active IMITREX 50 MG ORAL TABS 0.5 po x 1 PRN Headache. May repeat dose x 1 in 2 hours if needed SUMATRIPTAN SUCCINATE 12388040418 Active TAMARA Casey Active HYDROCODONE-ACETAMINOPHEN 5-325 MG TABS 1 to 2 four times a day as needed for pain use until can be seen by specialist HYDROCODONE- ACETAMINOPHEN 93394963849 No Longer Active Vishal Hui MD Active PROAIR HFA 108 (90 BASE) MCG/ACT AERS 2 puffs four times a day as needed 2015 ALBUTEROL SULFATE 88206841000 No Longer Active Vishal Hui MD Active PREDNISONE 20 MG TABS 2 daily for 5 days then 1 daily for 5 days PREDNISONE 11690841025 No Longer Active Vishal Hui MD Active ZITHROMAX Z-EARNEST 250 MG TABS 2 today and then 1 daily for 4 days AZITHROMYCIN 67341042831 No Longer Active Vishal Hui MD Active DICLOFENAC POTASSIUM TABS Take 1 tablet twice a day (pt. is not sure of the dose.) DICLOFENAC POTASSIUM TABS 61834747243 No Longer Active Vishal Hui MD Active VERAPAMIL HCL ER 120 MG ORAL CR-TABS Take 1 tablet by mouth twice a day. VERAPAMIL HCL 55958327854 Active Vishal Hui MD Active FLAGYL 500 MG TAB 1 tablet by mouth bid METRONIDAZOLE 55926348104 No Longer Active Vishal Hui MD Active VALIUM 5 MG TAB Take 1-2 tablets daily DIAZEPAM 48317786632 No Longer Active Fabiola Johnson APRN Active METOPROLOL TARTRATE 25 MG ORAL TABS 1/2 tablet twice daily for heart rate and blood pressure METOPROLOL TARTRATE 00265809699 No Longer Active Fabiola Johnson APRN Active MIRALAX PACK 1 po qd PRN Constipation POLYETHYLENE GLYCOL 3350 13052629340 No Longer Active Ahmet Carbajal MD Active MINIPRESS 2 MG CAPS 4 cap po at night PRAZOSIN HCL 18300120330 No Longer Active Ahmet Carbajal MD Active PIROXICAM 20 MG CAPS 1 cap po qd PRN Pain PIROXICAM 49084663784 No Longer Active Ahmet Carbajal MD Active TRAMADOL HCL 50 MG TABS 1-2 po TID PRN Pain TRAMADOL HCL 29493736876 No Longer Active Ahmet Carbajal MD Active METOPROLOL TARTRATE 50 MG TAB 1 po bid METOPROLOL TARTRATE 70867530805 No Longer Active Ahmet Carbajal MD Active ABILIFY 15 MG ORAL TABS 1 tab daily ARIPIPRAZOLE 98325517573 No Longer Active Ahmet Carbajal MD Active PROZAC 20 MG ORAL CAPS 1 tab daily FLUOXETINE HCL 77661577578 No Longer Active Ahmet Carbajal MD Active AMBIEN 5 MG ORAL TABS 1 tab at bedtime ZOLPIDEM TARTRATE 15439364765 No Longer Active Ahmet Carbajal MD Active PREDNISONE 20 MG TAB 2 tabs daily for 4 days, 1 tab daily for 4 days, 1/2 tab daily for 4 days PREDNISONE 15987579440 No Longer Active Ahmet Carbajal MD Active KEFLEX 500 MG CAP 1 po TID x 10 days CEPHALEXIN 24094726461 No Longer Active Vishal Hui MD Active SAPHRIS 5 MG SUBL 1 po bid ASENAPINE MALEATE 57316924572 No Longer Active Jillina Mauricio NORIEGA Active LATUDA 80 MG TABS Take one by mouth daily LURASIDONE HCL 65446200596 No Longer Active Jillina Fradwightl LUBRICATING SPECIALIST Active AMLODIPINE BESYLATE 5 MG TABS 1 tablet by mouth daily AMLODIPINE BESYLATE 45567510368 No Longer Active Jillina Fradwightl LUBRICATING SPECIALIST Active AMITRIPTYLINE HCL 100 MG TAB one at hs AMITRIPTYLINE HCL 61470992256 No Longer Active Vishal Hui MD Active TRAZODONE HCL 100 MG TAB take 1 at bedtime TRAZODONE HCL 17711459276 No Longer Active Vishal Hui MD Active VYVANSE 40 MG CAPS 1 daily, LISDEXAMFETAMINE DIMESYLATE 28309903870 No Longer Active Vishal Hui MD Active IBUPROFEN 600 MG TAB 1 po TID PRN IBUPROFEN 20979661833 No Longer Active Vishal Hui MD Active PROZAC 20 MG CAP Take one by mouth daily FLUOXETINE HCL 15716214043 No Longer Active Vishal Hui MD Active BACTRIM DS 800-160 MG TABS 1 pill by mouth twice daily SULFAMETHOXAZOLE-TRIMETHOPRIM 40281917299 No Longer Active Sahara Rodriguez MD PhD Active DIFLUCAN 150 MG TAB 1 tablet by mouth daily FLUCONAZOLE 55041551840 No Longer Active Vishal Hui MD Active TIZANIDINE HCL 4 MG TABS 1 po q6hr PRN Muscle Spasm/Back Pain TIZANIDINE HCL 47088404914 Active TMAARA Casey Active CLINDAMYCIN HCL 150 MG CAPS 1 four times a day CLINDAMYCIN HCL 67850616305 No Longer Active Neeraj Collins MD Active KEFLEX 500 MG ORAL CAPS 1 cap QID by mouth CEPHALEXIN 44310276205 No Longer Active Neeraj Collins MD Active DIFLUCAN 150 MG TABS 1 pill every other day x 2 doses FLUCONAZOLE 35083933074 No Longer Active Sahara Rodriguez MD PhD Active MELATONIN 3 MG CAPS 2 po q hs MELATONIN 66555566498 No Longer Active Sahara Rodriguez MD PhD Active MULTIVITAMINS CAPS Take one by mouth daily MULTIPLE VITAMIN 77947953572 No Longer Active Sahara Rodriguez MD PhD Active BACTRIM DS 800-160 MG TAB 1 tab by mouth twice daily TRIMETHOPRIM-SULFAMETHOXAZOLE 77854876076 No Longer Active Sahara Rodriguez MD PhD Active [facility] PROBIOTIC ORAL CHEW 2 daily po PROBIOTIC PRODUCT 93616395624 No Longer Active Sahara Rodriguez MD PhD Active BACTRIM DS 800-160 MG TABS 1 po BID x 7 days SULFAMETHOXAZOLE-TRIMETHOPRIM 75882617185 No Longer Active Vishal Hui MD Active CHANTIX STARTING MONTH EARNEST 0.5 MG X 11 & 1 MG X 42 TABS 0.5mg daily for 3 days , then 0.5mg BID for 4 days, then 1mg BID VARENICLINE TARTRATE 45920829816 No Longer Active Lisette Scarrow, RMA Active VERAPAMIL HCL CR 120 MG TAB CR 1 po bid VERAPAMIL HCL 68137256700 No Longer Active Vishal Hui MD Active METOPROLOL SUCCINATE 50 MG TB24 1 tablet by mouth daily METOPROLOL SUCCINATE 40126658748 No Longer Active Vishal Hui MD Active SAPHRIS 10 MG SUBL 1 tab po bid ASENAPINE MALEATE 70143455189 No Longer Active Vishal Hui MD Active LISINOPRIL 20 MG TABS 1 tab po qd LISINOPRIL 68046279898 No Longer Active Vishal Hui MD Active LATUDA 20 MG TABS Take one by mouth daily LURASIDONE HCL 40753855802 No Longer Active Vishal Hui MD Active TRAZODONE HCL 50 MG TABS 1/2 tab po qd prn for anxiety TRAZODONE HCL 83855850595 No Longer Active Vishal Hui MD Active OMEPRAZOLE 20 MG TBEC 1 po q a.m. 30min prior to first food intake OMEPRAZOLE 33837698429 Active Bertha Kirby, RMA Active RANITIDINE HCL 150 MG CAPS 1 twice a day RANITIDINE HCL 74008393362 Active Lynda Xiao LPN Active LINZESS 290 MCG CAPS Take one by mouth daily LINACLOTIDE 81389585069 No Longer Active Vishal Hui MD Active SAPHRIS 5 MG SUBL 1 tab po qd ASENAPINE MALEATE 18425452465 No Longer Active Vishal Hui MD Active ZALEPLON 10 MG CAPS 1 cap po every other night ZALEPLON 56047145413 No Longer Active Vishal Hui MD Active LYRICA 50 MG CAPS 1 tab po TID PREGABALIN 50832175089 No Longer Active Vishal Hui MD Active LORATADINE 10 MG TABS 1 tab po qd LORATADINE 37902675403 No Longer Active Vishal Hui MD Active VERAPAMIL HCL ER 180 MG CR-TABS 1 tab po bid VERAPAMIL HCL 65543464769 No Longer Active Vishal Hui MD Active MIRALAX POWD 1 capfull once daily POLYETHYLENE GLYCOL 3350 74634919222 No Longer Active Vishal Hui MD Active PREDNISONE 20 MG TABS 1 tab po qd PREDNISONE 84967160000 No Longer Active Renzo Thornton DO Active LEVOFLOXACIN 500 MG TABS 1 tab po qd LEVOFLOXACIN 45743669166 No Longer Active Renzo Thornton DO Active BUSPIRONE HCL 15 MG TABS 1 tab po TID BUSPIRONE HCL 05165428495 No Longer Active Renzo Thornton DO Active BENZTROPINE MESYLATE 1 MG TABS 1 tab po qd BENZTROPINE MESYLATE 25716929549 No Longer Active Renzo Thornton DO Active ATENOLOL 25 MG TABS 1 tab po qd ATENOLOL 88349957968 No Longer Active Renzo Thornton DO Active ESCITALOPRAM OXALATE 20 MG TABS 1 tab po qd ESCITALOPRAM OXALATE 22751285217 No Longer Active Renzo Thornton DO Active ADVAIR DISKUS 250-50 MCG/DOSE AEPB 1 puff BID FLUTICASONE-SALMETEROL 73657182953 No Longer Active Renzo Thornton DO Active PREDNISONE 20 MG TAB 2 tabs daily for 3 days, 1 tab daily for 3 days, 1/2 tab daily for 2 days PREDNISONE 13819287357 No Longer Active Vishal Hui MD Active CEFDINIR 300 MG CAPS by mouth twice a day CEFDINIR 41335973135 No Longer Active Vishal Hui MD Active LANSOPRAZOLE 30 MG CPDR 1 cap po qd LANSOPRAZOLE 15584467234 No Longer Active Vishal Hui MD Active BACLOFEN 20 MG TABS 1 tab po tid BACLOFEN 41263656439 No Longer Active Vishal W Dillow MD Active ADVAIR DISKUS 250-50 MCG/DOSE AEPB 1 puff BID ADVAIR DISKUS 250-50 MCG/DOSE AEPB FLUTICASONE-SALMETEROL Inactive ESCITALOPRAM OXALATE 20 MG TABS 1 tab po qd ESCITALOPRAM OXALATE 20 MG TABS 507765 ESCITALOPRAM OXALATE Inactive ATENOLOL 25 MG TABS 1 tab po qd ATENOLOL 25 MG TABS 082887 ATENOLOL Inactive BENZTROPINE MESYLATE 1 MG TABS 1 tab po qd BENZTROPINE MESYLATE 1 MG TABS 725345 BENZTROPINE MESYLATE Inactive BUSPIRONE HCL 15 MG TABS 1 tab po TID BUSPIRONE HCL 15 MG TABS 357714 BUSPIRONE HCL Inactive LEVOFLOXACIN 500 MG TABS 1 tab po qd LEVOFLOXACIN 500 MG TABS 022555 LEVOFLOXACIN Inactive PREDNISONE 20 MG TABS 1 tab po qd PREDNISONE 20 MG TABS 332630 PREDNISONE Inactive MIRALAX POWD 1 capfull once daily MIRALAX POWD 224626 POLYETHYLENE GLYCOL 3350 Inactive VERAPAMIL HCL ER 180 MG CR-TABS 1 tab po bid VERAPAMIL HCL ER 180 MG CR-TABS VERAPAMIL HCL Inactive LORATADINE 10 MG TABS 1 tab po qd LORATADINE 10 MG TABS 989195 LORATADINE Inactive LYRICA 50 MG CAPS 1 tab po TID LYRICA 50 MG CAPS PREGABALIN Inactive ZALEPLON 10 MG CAPS 1 cap po every other night ZALEPLON 10 MG CAPS 264764 ZALEPLON Inactive SAPHRIS 5 MG SUBL 1 tab po qd SAPHRIS 5 MG SUBL ASENAPINE MALEATE Inactive TRAZODONE HCL 50 MG TABS 1/2 tab po qd prn for anxiety TRAZODONE HCL 50 MG TABS 976476 TRAZODONE HCL Inactive LATUDA 20 MG TABS Take one by mouth daily LATUDA 20 MG TABS LURASIDONE HCL Inactive LISINOPRIL 20 MG TABS 1 tab po qd LISINOPRIL 20 MG TABS 354361 LISINOPRIL Inactive SAPHRIS 10 MG SUBL 1 [...] twice daily BACTRIM DS 800-160 MG TAB 253546 TRIMETHOPRIM-SULFAMETHOXAZOLE Inactive MULTIVITAMINS CAPS Take one by mouth daily MULTIVITAMINS CAPS MULTIPLE VITAMIN Inactive MELATONIN 3 MG CAPS 2 po q hs MELATONIN 3 MG CAPS 945707 MELATONIN Inactive KEFLEX 500 MG ORAL CAPS 1 cap QID by mouth KEFLEX 500 MG ORAL CAPS 634761 CEPHALEXIN Inactive CLINDAMYCIN HCL 150 MG CAPS 1 four times a day CLINDAMYCIN HCL 150 MG CAPS 431385 CLINDAMYCIN HCL Inactive DIFLUCAN 150 MG TAB 1 tablet by mouth daily DIFLUCAN 150 MG TAB 779869 FLUCONAZOLE Inactive PROZAC 20 MG CAP Take one by mouth daily PROZAC 20 MG CAP 525927 FLUOXETINE HCL Inactive IBUPROFEN 600 MG TAB 1 po TID PRN IBUPROFEN 600 MG TAB 711838 IBUPROFEN Inactive VYVANSE 40 MG CAPS 1 daily, VYVANSE 40 MG CAPS LISDEXAMFETAMINE DIMESYLATE Inactive TRAZODONE HCL 100 MG TAB take 1 at bedtime TRAZODONE HCL 100 MG TAB 649124 TRAZODONE HCL Inactive AMITRIPTYLINE HCL 100 MG TAB one at hs AMITRIPTYLINE HCL 100 MG TAB 533428 AMITRIPTYLINE HCL Inactive AMLODIPINE BESYLATE 5 MG TABS 1 tablet by mouth daily AMLODIPINE BESYLATE 5 MG TABS 784257 AMLODIPINE BESYLATE Inactive LATUDA 80 MG TABS Take one by mouth daily LATUDA 80 MG TABS LURASIDONE HCL Inactive SAPHRIS 5 MG SUBL 1 po bid SAPHRIS 5 MG SUBL ASENAPINE MALEATE Inactive PREDNISONE 20 MG TAB 2 tabs daily for 4 days, 1 tab daily for 4 days, 1/2 tab daily for 4 days PREDNISONE 20 MG TAB 744137 PREDNISONE Inactive AMBIEN 5 MG ORAL TABS 1 tab at bedtime AMBIEN 5 MG ORAL TABS 568655 ZOLPIDEM TARTRATE Inactive PROZAC 20 MG ORAL CAPS 1 tab daily PROZAC 20 MG ORAL CAPS 216867 FLUOXETINE HCL Inactive ABILIFY 15 MG ORAL TABS 1 tab daily ABILIFY 15 MG ORAL TABS 115152 ARIPIPRAZOLE Inactive METOPROLOL TARTRATE 50 MG TAB 1 po bid METOPROLOL TARTRATE 50 MG TAB 525910 METOPROLOL TARTRATE Inactive TRAMADOL HCL 50 MG TABS 1-2 po TID PRN Pain TRAMADOL HCL 50 MG TABS 598828 TRAMADOL HCL Inactive PIROXICAM 20 MG CAPS 1 cap po qd PRN Pain PIROXICAM 20 MG CAPS 805038 PIROXICAM Inactive MINIPRESS 2 MG CAPS 4 cap po at night MINIPRESS 2 MG CAPS 384921 PRAZOSIN HCL Inactive MIRALAX PACK 1 po qd PRN Constipation MIRALAX PACK 474850 POLYETHYLENE GLYCOL 3350 Inactive METOPROLOL TARTRATE 25 MG ORAL TABS 1/2 tablet twice daily for heart rate and blood pressure METOPROLOL TARTRATE 25 MG ORAL TABS 824396 METOPROLOL TARTRATE Inactive VALIUM 5 MG TAB Take 1-2 tablets daily VALIUM 5 MG TAB 227303 DIAZEPAM Inactive FLAGYL 500 MG TAB 1 tablet by mouth bid FLAGYL 500 MG TAB 456137 METRONIDAZOLE Inactive DICLOFENAC POTASSIUM TABS Take 1 tablet twice a day (pt. is not sure of the dose.) DICLOFENAC POTASSIUM TABS DICLOFENAC POTASSIUM TABS Inactive ZITHROMAX Z-EARNEST 250 MG TABS 2 today and then 1 daily for 4 days ZITHROMAX Z-EARNEST 250 MG TABS 2145853 AZITHROMYCIN Inactive PREDNISONE 20 MG TABS 2 daily for 5 days then 1 daily for 5 days PREDNISONE 20 MG TABS 470727 PREDNISONE Inactive PROAIR HFA 108 (90 BASE) MCG/ACT AERS 2 puffs four times a day as needed 2015 PROAIR HFA 108 (90 BASE) MCG/ACT AERS ALBUTEROL SULFATE Inactive HYDROCODONE-ACETAMINOPHEN 5-325 MG TABS 1 to 2 four times a day as needed for pain use until can be seen by specialist HYDROCODONE- ACETAMINOPHEN 5-325 MG TABS 765825 HYDROCODONE-ACETAMINOPHEN Inactive TESSALON PERLES 100 MG CAP 1 to 2 tablets by mouth 3 times daily as needed for cough TESSALON PERLES 100 MG CAP 948658 BENZONATATE Inactive CHANTIX STARTING MONTH EARNEST 0.5 [...] Pain 2015 DICLOFENAC SODIUM 50 MG TBEC 187101 DICLOFENAC SODIUM Inactive TOPAMAX 50 MG ORAL TABS 1 tab twice daily TOPAMAX 50 MG ORAL TABS 767836 TOPIRAMATE Inactive VIIBRYD 10 MG ORAL TABS Take 1 tablet once a day VIIBRYD 10 MG ORAL TABS VILAZODONE HCL Inactive LEVOFLOXACIN 500 MG ORAL TABS po daily LEVOFLOXACIN 500 MG ORAL TABS 192393 LEVOFLOXACIN Inactive METHYLPREDNISOLONE 4 MG ORAL TABS po daily METHYLPREDNISOLONE 4 MG ORAL TABS 318930 METHYLPREDNISOLONE Inactive OXYCODONE HCL ER 10 MG ORAL T12A 1/2 tab by mouth every 4 hours prn OXYCODONE HCL ER 10 MG ORAL T12A OXYCODONE HCL Inactive FLAGYL 500 MG TAB 1 tablet by mouth bid FLAGYL 500 MG TAB 138478 METRONIDAZOLE Inactive MONISTAT 7 COMBO PACK WOODROW 100 & 2 MG-% (9GM) VAG KIT 1 applicatorful per vagina q pm x 7 MONISTAT 7 COMBO PACK WOODROW 100 & 2 MG-% (9GM) VAG KIT MICONAZOLE NITRATE Inactive BACTRIM DS 800-160 MG TABS 1 twice a day BACTRIM DS 800-160 MG TABS 705952 SULFAMETHOXAZOLE-TRIMETHOPRIM Inactive TRAMADOL HCL 50 MG TABS 1/2-1 tab TID PRN TRAMADOL HCL 50 MG TABS 835571 TRAMADOL HCL Inactive ABILIFY MAINTENA 400 MG IM SUSR 400mg injection every 26 days ABILIFY MAINTENA 400 MG IM SUSR ARIPIPRAZOLE Inactive KLONOPIN 1 MG ORAL TABS 1 tab po TID KLONOPIN 1 MG ORAL TABS 620628 CLONAZEPAM Inactive ADVAIR DISKUS 250-50 MCG/DOSE INH AEPB 1 puff twice a day for asthma ADVAIR DISKUS 250-50 MCG/DOSE INH AEPB FLUTICASONE- SALMETEROL Inactive BENADRYL 25 MG CAP 4 po at bedtime for insomnia BENADRYL 25 MG CAP DIPHENHYDRAMINE HCL Inactive PREDNISONE 20 MG TABS 2 daily for 5 days then 1 daily for 5 days PREDNISONE 20 MG TABS 253637 PREDNISONE Inactive HYDROCODONE-ACETAMINOPHEN 5-325 MG ORAL TABS 1 tab two times a day HYDROCODONE-ACETAMINOPHEN 5-325 MG ORAL TABS 043879 HYDROCODONE-ACETAMINOPHEN Inactive ZITHROMAX Z-EARNEST 250 MG TABS 2 today and then 1 daily for 4 days ZITHROMAX Z-EARNEST 250 MG TABS 9096059 AZITHROMYCIN Inactive GUAIFENESIN-CODEINE 100-10 MG/5ML SYRP 5ml every 4 to 6 hours as needed for cough GUAIFENESIN-CODEINE 100-10 MG/5ML SYRP 324005 GUAIFENESIN-CODEINE Inactive HALOPERIDOL 10 MG ORAL TABS 1 tab q.d HALOPERIDOL 10 MG ORAL TABS 492696 HALOPERIDOL Inactive ASPIRIN 325 MG ORAL TABS 1 tab q.d ASPIRIN 325 MG ORAL TABS 595384 ASPIRIN Inactive FLUTICASONE PROPIONATE 50 MCG/ACT SUSP 2 sprays each nostril daily before bed. FLUTICASONE PROPIONATE 50 MCG/ACT SUSP [id number] FLUTICASONE PROPIONATE Inactive ZOFRAN 4 MG TABS 1 po q6hr PRN Nausea ZOFRAN 4 MG TABS 288783 ONDANSETRON HCL Inactive KEFLEX 500 MG CAP 1 po qid KEFLEX 500 MG CAP 269793 CEPHALEXIN Inactive ACETAMINOPHEN-CODEINE 120-12 MG/5ML SOLN 5 ml by mouth every 4-6 hours if needed for cough ACETAMINOPHEN-CODEINE 120-12 MG/5ML SOLN 585983 ACETAMINOPHEN-CODEINE Inactive PREDNISONE 20 MG TAB 1 tablet daily x 4 days PREDNISONE 20 MG TAB [id number] PREDNISONE Inactive TROPICAMIDE 0.5 % OPHTH SOLN 1 drop PRN eye spasms TROPICAMIDE 0.5 % OPHTH SOLN 753590 TROPICAMIDE Inactive LEVAQUIN 500 MG TABS 1 daily for infection LEVAQUIN 500 MG TABS 095349 LEVOFLOXACIN Inactive PREDNISONE 10 MG TABS 2 daily for 5 days then 1 daily for 5 days PREDNISONE 10 MG TABS [id number] PREDNISONE Inactive EQ NICOTINE 21 MG/24HR TRANS [...] for cough TESSALON PERLES 100 MG CAPS 089216 BENZONATATE Inactive AMITIZA 8 MCG ORAL CAPS [...] twice a day MUPIROCIN 2 % OINT 963439 MUPIROCIN Inactive BACTRIM DS 800-160 MG TAB Take one (1) tablet by mouth twice a day for 5 days BACTRIM DS 800-160 MG TAB [id number] TRIMETHOPRIM- SULFAMETHOXAZOLE Inactive LACTULOSE 10 GM/15ML ORAL SOLN 30mL oral BID for IBS-C LACTULOSE 10 GM/15ML ORAL SOLN 515075 LACTULOSE Inactive MIRALAX ORAL POWD 17GMS DAILY IN WATER MIRALAX ORAL POWD 569032 POLYETHYLENE GLYCOL 3350 Inactive CEFDINIR 300 MG CAPS by mouth twice a day CEFDINIR 300 MG CAPS 043989 CEFDINIR Inactive PREDNISONE 20 MG TAB 2 tabs daily for 3 days, 1 tab daily for 3 days, 1/2 tab daily for 2 days PREDNISONE 20 MG TAB 628271 PREDNISONE Inactive BACTRIM DS 800-160 MG TABS 1 po BID x 7 days BACTRIM DS 800-160 MG TABS 19820521 SULFAMETHOXAZOLE-TRIMETHOPRIM Inactive DIFLUCAN 150 MG TABS 1 pill every other day x 2 doses DIFLUCAN 150 MG TABS 746260 FLUCONAZOLE Inactive BACTRIM DS 800-160 MG TABS 1 pill by mouth twice daily BACTRIM DS 800-160 MG TABS 19820521 SULFAMETHOXAZOLE-TRIMETHOPRIM Inactive KEFLEX 500 MG CAP 1 po TID x 10 days KEFLEX 500 MG CAP 866579 CEPHALEXIN Inactive Advance Directives Directive Description Start [...] % 11.0-15.0 platelet count 443 THOUSAND/UL 10*3/mm3 970-077 9111/03/01 mean platelet volume 8.2 fL 7.5-12.5 leukocyte [...] % 11.0-15.0 platelet count 349 THOUSAND/UL 10*3/mm3 189-165 8208/04/12 mean platelet volume 8.4 fL 7.5-12.5 Lab Report: CBC W/DIFF, Comp. Metabolic Panel, HGBA1C, Magnesium - Chemistry sodium, serum 141 mmol/L 767-279 2262/07/24 carbon dioxide, venous blood 27.8 mmol/L 21.0-32.0 [...] % 11.6-14.8 platelet count 369 10^3/MM^3 10*3/mm3 705-098 9811/12/21 leukocyte count, blood 11.1 10^3/MM^3 10*3/mm3 4.6-10.2 Lab Report: Chlamydia/GC APTIMA/42796 - Lab chlamydia DNA probe NOT DETECTED NOT DETECTED Lab Report: Chlamydia/GC APTIMA/09655 - Microbiology Neisseria gonorrhoeae DNA probe NOT DETECTED NOT DETECTED Lab Report: Chlamydia/GC APTIMA/23534, Urinalysis, Complete, with Reflex ... - Lab chlamydia DNA probe NOT DETECTED NOT DETECTED Lab Report: Chlamydia/GC APTIMA/87177, Urinalysis, Complete, with Reflex ... - Microbiology Neisseria gonorrhoeae DNA probe NOT DETECTED NOT DETECTED Lab Report: Chlamydia/GC APTIMA/25680, Urinalysis, Complete, with Reflex ... - Urinalysis microalbumin/total urine volume 2 mg/L Units converted. See lab report for original value. microalbumin/creatinine ratio, urine 9 MCG/MG CREAT mg/L <30 Lab Report: Comp. Metabolic Panel - Chemistry blood glucose 80 mg/dL 65-110 chloride, serum 103 mmol/L 98-107 potassium, serum 5.0 mmol/L 3.5-5.2 carbon dioxide, venous blood 33.7 mmol/L 21.0-32.0 sodium, serum 140 mmol/L 648-333 9622/08/08 urea nitrogen, blood 13 mg/dL 7-18 creatinine, serum 0.88 mg/dL 0.55-1.30 alanine aminotransferase (SGPT), serum 54 U/L 12-78 aspartate aminotransferase (SGOT), serum 29 U/L 15-37 calcium, serum 9.7 mg/dL 8.5-10.1 bilirubin, serum, total 0.30 mg/dL 0.00-1.00 sodium, serum 140 mmol/L 785-455 8739/06/28 carbon dioxide, venous blood 23.8 mmol/L 21.0-32.0 [...] negative Encounters Code Encounter Date Provider Facility CPT-59881 Level 3 Est. [facility]36:[facility] Est[facility] Patient 10:53:17 [facility] Level 3 Est. Patient 11:08:35 CDT Suzan [facility] CPT-99723 Level 3 Est. Patient 15:55:20 CDT Suzan [facility] CPT-52424 Level 4 Est. Patient 10:49:34 CDT Suzan [facility] CPT-92426 Level 3 Est. Patient 10:00:25 [facility] Level 3 Est. Patient 10:29:30 [facility] Level 3 Est. Patient 11:04:38 CDT Renzo Thornton [facility] CPT-25918 Level 3 Est. Patient 11:15:58 BOTTOM LOADER Renzo Thornton [facility] CPT-99479 Level 3 Est. Patient 15:28:23 BOTTOM LOADER Suzan Boo [facility] CPT-10916 Level 4 Est. Patient 10:20:54 BOTTOM LOADER Suzan Boo [facility] CPT-49888 Level 3 Est. Patient 11:47:37 BOTTOM LOADER Ahmet Carbajal MD [facility] CPT-69759 Level 3 Est. Patient 10:40:11 BOTTOM LOADER Ahmet Carbajal MD [facility] CPT-51289 Level 3 Est. Patient 15:07:06 BOTTOM LOADER Neeraj Collins MD [facility] CPT-45142 Level 4 Est. Patient 14:45:00 BOTTOM LOADER Ahmet Carbajal MD [facility] CPT-18399 Level 3 Est. Patient 13:59:59 CDT Luigi Martínez [facility] CPT-74732 Level 3 Est. Patient 18:18:53 CDT Neeraj Collins MD [facility] CPT-47294 Level 3 Est. Patient 15:50:44 CDT Vishal Hui MD [facility] CPT-64262 Level 3 Est. Patient 11:36:17 CDT Ahmet Carbajal MD [facility] CPT-62539 Level 3 Est. Patient 13:29:16 CDT Vishal Hui MD [facility] CPT-58645 Level 3 Est. Patient 14:27:52 CDT Neeraj Collins MD [facility] CPT-90438 Level 3 Est. Patient 08:56:03 CDT Luigi Martínez [facility] CPT-22957 Level 4 Est. Patient 12:11:48 CDT Fabiola Johnson [facility] CPT-77858 Level 3 New Patient 16:53:37 CDT Albert Caldera MD [facility] CPT-31453 Level 3 Est. Patient 11:25:49 CDT Renzo Thornton DO [facility] CPT-64377 Level 3 Est. Patient 15:22:01 CDT Ahmet Carbajal MD [facility] CPT-12336 Level 4 Est. Patient 09:00:51 BOTTOM LOADER Vishal Hui MD [facility] CPT-74432 Level 3 Est. Patient 11:37:33 BOTTOM LOADER Vishal Hui MD [facility] CPT-88580 Level 3 Est. Patient 08:41:09 BOTTOM LOADER Vishal Hui MD [facility] CPT-25003 Level 4 Est. Patient 10:19:35 BOTTOM LOADER Vishal Hui MD [facility]-28811 Level 3 Est. Patient 13:35:45 CDT Vishal Hui MD [facility] CPT-76953 Level 4 Est. Patient 10:08:37 CDT Vishal Hui MD [facility]-68503 Level 3 Est. Patient 11:22:10 CDT Vishal Hui MD [facility] CPT-11297 Level 3 Est. Patient 11:03:32 CDT Sahara Rodriguez MD PhD [facility]-83103 Level 3 Est. Patient 09:41:35 CDT Vishal Hui MD [facility]-94977 Level 3 Est. Patient 12:00:41 CDT Neeraj Collins MD [facility]-32452 Level 3 Est. Patient 09:16:24 CDT Vishal Hui MD [facility] CPT-04566 Level 4 Est. Patient 13:59:09 CDT Neeraj Collins MD [facility]-41114 Level 3 Est. Patient 15:19:43 CDT Renzo Thornton DO [facility] CPT-51956 Level 3 Est. Patient 18:10:26 CDT Sahara Rodriguez MD PhD [facility]-20425 Level 3 Est. Patient 14:49:50 CDT Vishal Hui MD [facility]-60998 Level 4 Est. Patient 18:41:46 CDT Neeraj Collins MD [facility]-59555 Level 4 Est. Patient 09:18:38 BOTTOM LOADER Vishal Hui MD [facility]-78213 Level 3 Est. Patient 14:43:55 BOTTOM LOADER Vishal Hui MD [facility]-65967 Level 3 Est. Patient 15:26:33 BOTTOM LOADER Sahara Rodriguez MD PhD [facility] CPT-62789 Level 3 Est. Patient 10:32:14 BOTTOM LOADER Vishal Hui MD [facility] CPT-61136 Level 3 Est. Patient 15:12:52 BOTTOM LOADER Vishal Hui MD [facility] CPT-63076 Level 4 Est. Patient 09:19:27 CDT Vishal Hui MD [facility] CPT-29703 Level 3 Est. Patient 15:53:00 CDT Renzo Thornton [facility] CPT-41152 Level 3 Est. Patient 15:50:30 CDT Renzo Thornton [facility] CPT-17000 Level 3 Est. Patient 16:55:24 CDT Vishal Hui MD [facility] Procedures Code Procedure Name Date Entry Date Standard Description CPT-83725 UA Dip Auto (Floor Use Only) 11:36:47 CDT CPT-40495 Venipuncture Draw Fee 10:53:17 CDT CPT-73348 EKG Trac and Interp - XRAY USE ONLY 15:59:30 CDT 09/13 CPT-21947 Chest 1V Frontal - XRAY USE ONLY 15:59:30 CDT CPT-94243 Venipuncture Draw Fee 15:44:02 CDT CPT-48334 Venipuncture Draw Fee 08:41:12 CDT CPT-19469 Abd compl w upright - XRAY USE ONLY 10:27:59 CDT 06/28 CPT-41215 Smoking Cessation counseling 11:15:58 BOTTOM LOADER CPT-G0439 [facility] Annual Wellness Exam 09:30:58 BOTTOM LOADER CPT-13485 TSH - LAB USE ONLY 08:50:26 BOTTOM LOADER CPT-58797 CBC - LAB USE ONLY 08:50:26 BOTTOM LOADER CPT-24660 Venipuncture Draw Fee 08:50:26 BOTTOM LOADER CPT-57286 Abx/Therapy Injection 17:34:30 BOTTOM LOADER CPT-96454 Nexplanon Removal with Reinsertion 14:09:32 CDT CPT-J7307 Nexplanon (Implant) 14:09:32 CDT CPT-OV Office Visit 14:09:32 CDT CPT-42911 UA w micro - LAB USE ONLY 16:21:13 CDT CPT-75676 Wet Mount - LAB USE ONLY 16:21:13 CDT CPT-47277 First Vx - Ix admin for Medicare patients 14:37:47 CDT CPT-86325 Fluzone Preservative Free Intramuscular Suspension 14:37 :47 CDT CPT-02825 Abx/Therapy Injection 13:54:22 CDT CPT-69456 Abx/Therapy Injection 08:47:09 CDT CPT-36029 Abx/Therapy Injection 13:29:56 CDT CPT-01841 Abx/Therapy Injection 08:36:16 CDT CPT-91781 Wet Mount - LAB USE ONLY 17:44:58 CDT CPT-13132 UA w micro - LAB USE ONLY 17:44:58 CDT CPT-16319 CMP - LAB USE ONLY 17:44:58 CDT CPT-11910 Venipuncture Draw Fee 17:44:58 CDT CPT-03633 Cervical Min 4V - XRAY USE ONLY 09:01:40 CDT CPT-35895 Chest 2V Frontal and Lat - XRAY USE ONLY 11:06:31 CDT CPT-52617 EKG Trac and Interp - XRAY USE ONLY 11:31:43 CDT 08/26 CPT-J3420 Vitamin B12 1000mcg (Cyanocobalamin) 08:10:26 BOTTOM LOADER 04/12 CPT-46877 Abx/Therapy Injection 08:10:26 BOTTOM LOADER CPT-G0438 Initial Annual Wellness Exam 19:01:01 BOTTOM LOADER CPT-J3420 Vitamin B12 1000mcg (Cyanocobalamin) 16:57:46 CDT 08/14 CPT-39198 Recombivax HB Injection Suspension 5 MCG/0.5ML 08:37:50 BOTTOM LOADER CPT-89561 Immunization Single Admin 08:37:50 BOTTOM LOADER CPT-J3420 Vitamin B12 1000mcg (Cyanocobalamin) 08:32:16 BOTTOM LOADER 03/11 CPT-03520 Abx/Therapy Injection 08:32:16 BOTTOM LOADER CPT-09178 Chest 2V Frontal and Lat 11:46:38 BOTTOM LOADER CPT-32898 Venipuncture Draw Fee 09:12:45 BOTTOM LOADER CPT-J3420 Vitamin B12 1000mcg (Cyanocobalamin) 08:50:15 BOTTOM LOADER 02/08 CPT-58352 Abx/Therapy Injection 08:50:15 BOTTOM LOADER CPT-Cryo Cryotherapy 10:19:35 BOTTOM LOADER CPT-000 Give Appropriate Flu Vaccine 09:22:16 CDT CPT-J3420 Vitamin B12 1000mcg (Cyanocobalamin) 19:08:57 CDT 01/11 CPT-45171 Abx/Therapy Injection 19:08:57 CDT CPT-J3420 Vitamin B12 1000mcg (Cyanocobalamin) 08:19:08 CDT 12/11 CPT-34988 Abx/Therapy Injection 08:19:08 CDT CPT-J3420 Vitamin B12 1000mcg (Cyanocobalamin) 14:48:00 CDT 11/09 CPT-66126 Abx/Therapy Injection 14:47:59 CDT CPT-J3420 Vitamin B12 1000mcg (Cyanocobalamin) 08:34:04 CDT 10/09 CPT-72157 Abx/Therapy Injection 08:34:04 CDT CPT-J3420 Vitamin B12 1000mcg (Cyanocobalamin) 09:18:52 CDT 09/11 CPT-83277 Abx/Therapy Injection 09:18:52 CDT CPT-J3420 Vitamin B12 1000mcg (Cyanocobalamin) 08:35:44 CDT 09/04 CPT-78682 Abx/Therapy Injection 08:35:44 CDT CPT-87372 Immunization Single Admin 11:07:16 CDT CPT-42578 Hepatitis B adult IM 11:07:16 CDT CPT-J3420 Vitamin B12 1000mcg (Cyanocobalamin) 11:00:49 CDT 08/28 CPT-J1040 Depo Medrol 80 mg (Methyl Prednisolone Acetate) 11:00: 49 CDT CPT-28346 Abx/Therapy Injection 11:00:49 CDT CPT-J1040 Depo Medrol 80 mg (Methyl Prednisolone Acetate) 09:16: 23 CDT CPT-J3420 Vitamin B12 1000mcg (Cyanocobalamin) 08:27:05 CDT 08/20 CPT-75517 Abx/Therapy Injection 08:27:05 CDT CPT-07956 Recombivax HB Injection Suspension 5 MCG/0.5ML 10:00:41 CDT CPT-32837 Administration single or combination vaccine inc oral 10 :00:41 CDT CPT-64552 Sono transvag pelvis non OB uterus ovaries cervix 16:36: 57 CDT CPT-50702 LS spine comp w obliq 09:50:55 BOTTOM LOADER CPT-07651 Abd compl w upright 09:50:55 BOTTOM LOADER CPT-J1100 Decadron 4mg (Dexamethasone) 15:51:24 BOTTOM LOADER CPT-J1030 Depo Medrol 40 mg (Methyl Prednisolone Acetate) 15:51: 24 BOTTOM LOADER CPT-57434 Abx/Therapy Injection 15:51:24 BOTTOM LOADER CPT-J1100 Decadron 4mg (Dexamethasone) 15:26:33 BOTTOM LOADER CPT-J1030 Depo Medrol 40 mg (Methyl Prednisolone Acetate) 15:26: 33 BOTTOM LOADER CPT-69211 Sono retroperitoneal complete kidneys and bladder 17:15: 30 CDT CPT-50998 Abd compl w upright 16:09:25 CDT CPT-J1100 Decadron 8mg (Dexamethasone) 17:07:57 CDT CPT-08071 Abx/Therapy Injection 17:07:57 CDT CPT-J1100 Decadron 8mg (Dexamethasone) 16:55:24 CDT CPT-47515 Chest 2V Frontal and Lat 16:32:44 CDT
--- OUTSIDE RECORDS SUMMARY | 2016-11-04 17:13 | XMS REPORT | Clinical Summary ---
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 Juliet Kimbrough MANAGER [employer] Dependence on other enabling machines and devices Gait unsteady 781.2 Resolved Albert Caldera MD Abnormality of gait Lipoma 214.9 Resolved Albert Caldera MD Lipoma, unspecified site Abdominal pain, RUQ 789.01 Resolved Albert Caldera MD Abdominal pain, right upper quadrant Chest pain, acute 786.50 Resolved lAbert Caldera MD Unspecified chest pain Localized adiposity [...] Active Ahmet Carbajal MD Generalized anxiety disorder 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 V72.31 Resolved Suzan Boo APRN Routine gynecological examination Bronchitis, acute with mild bronchospasm 466.0 Resolved Suzan Boo APRN Acute bronchitis Fibrocystic breast changes 610.1 Active Suzan Boo APRN Diffuse cystic 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 Suzan Boo APRN Other specified conditions influencing health status Tracheitis 464.10 Resolved Szuan Boo APRN Acute tracheitis without mention of [...] Boo APRN DYSURIA ICD-788.1 Inactive Suzan Boo MANAGER [employer] Cellulitis and abscess of breast ICD-611.0 Inactive Ahmet Carbajal MD Nondisplaced transverse fracture of shaft of left fibula, subsequent encounter for closed fracture with routine healing Inactive Suzan Boo MANAGER [employer] Bronchitis, acute ICD-466.0 Inactive Ahmet Carbajal MD 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 ICD-V72.31 Inactive Suzan Boo MANAGER [employer] Bronchitis, acute with mild bronchospasm ICD-466.0 Inactive Suzan Boo MANAGER [employer] Tracheitis ICD-464.10 Inactive Suzan Boo APRN Impetigo ICD-684 Inactive Suzan Boo MANAGER [employer] Furuncle of buttock ICD-680.5 Inactive Suzan Boo APRN Vaginal irritation ICD-623.9 Inactive Suzan Boo APRN Scalding pain on urination ICD-788.1 Inactive Suzan Boo APRN Abdominal pain, right upper quadrant ICD-789.01 Inactive Suzan oBo APRN Dark urine ICD-791.9 Inactive Suzan Boo APRN Preop exam ICD-V72.84 Inactive Suzan Boo APRN Medication List Medication Instructions Start Date Stop Date Generic Name NDC Status Provider Patient Instruction MUPIROCIN 2 % OINT apply twice a day MUPIROCIN 72845507071 Active Suzan Boo APRN Active BACTRIM DS 800-160 MG TABS 1 twice a day SULFAMETHOXAZOLE- TRIMETHOPRIM 68712635011 Active Suzan Boo APRN Active [id number]-[id number] 50-325-40 MG TABS 1 to 2 four times a day as needed for headache [id number] 66879689983 Active Suzan Boo APRN Active METOCLOPRAMIDE HCL 10 MG TABS 1 two times as needed for nausea and headaches METOCLOPRAMIDE HCL 92514314151 Active Meena Ortiz MA Active NYSTATIN 453916 UNIT/GM CREA apply three times a day to yeast rash NYSTATIN 15681778753 Active Suzan Boo APRN Active AMITIZA 24 MCG ORAL CAPS one capsule twice daily LUBIPROSTONE 11321544583 Active Suzan Boo APRN Active MIRALAX ORAL POWD 17GMS DAILY IN WATER POLYETHYLENE GLYCOL 3350 61234242896 No Longer Active Suzan Boo APRN Active LACTULOSE 10 GM/15ML ORAL SOLN 30mL oral BID for IBS-C LACTULOSE 91827815344 No Longer Active Suzan Boo APRN Active BACTRIM DS 800-160 MG TAB Take one (1) tablet by mouth twice a day for 5 days TRIMETHOPRIM-SULFAMETHOXAZOLE 51930301290 No Longer Active Suzan Boo APRN Active MUPIROCIN 2 % OINT apply twice a day MUPIROCIN 67033202810 No Longer Active Suzan Boo APRN Active BACTRIM DS 800-160 MG TABS 1 twice a day SULFAMETHOXAZOLE-TRIMETHOPRIM 35019120480 No Longer Active Suzan Boo APRN Active DIFLUCAN 150 MG TABS 1 by mouth for yeast FLUCONAZOLE 80264742234 No Longer Active Suzan Boo APRN Active LINZESS 290 MCG ORAL CAPS 1 tab 30 min prior to first meal each day. LINACLOTIDE 64247292252 No Longer Active Sheila Calderon LPN Active AMITIZA 8 MCG ORAL CAPS 1 tab BID LUBIPROSTONE 46767392577 No Longer Active Lynda Xiao MEAT TEAM MEMBER Active TESSALON PERLES 100 MG CAPS 1 three times a day as needed for cough BENZONATATE 50512092196 No Longer Active Suzan Boo APRN Active BACTRIM DS 800-160 MG TABS 1 twice a day SULFAMETHOXAZOLE-TRIMETHOPRIM 39312972567 No Longer Active Suzan Boo APRN Active DIFLUCAN 150 MG TABS 1 by mouth for yeast FLUCONAZOLE 67535198613 No Longer Active Suzan Boo APRN Active EQ NICOTINE 21 MG/24HR TRANS PT24 Apply daily to stop smoking NICOTINE 45717343189 No Longer Active Suzan Boo APRN Active PREDNISONE 10 MG TABS 2 daily for 5 days then 1 daily for 5 days PREDNISONE 57760793179 No Longer Active Suzan Boo APRN Active LEVAQUIN 500 MG TABS 1 daily for infection LEVOFLOXACIN 60676107677 No Longer Active Suzan Boo APRN Active TROPICAMIDE 0.5 % OPHTH SOLN 1 drop PRN eye spasms TROPICAMIDE 99325647719 No Longer Active Suzan Boo APRN Active PREDNISONE 20 MG TAB 1 tablet daily x 4 days PREDNISONE 61981658649 No Longer Active Suzan Boo APRN Active ACETAMINOPHEN-CODEINE 120-12 MG/5ML SOLN 5 ml by mouth every 4-6 hours if needed for cough ACETAMINOPHEN-CODEINE 70211246843 No Longer Active Suzan Boo APRN Active KEFLEX 500 MG CAP 1 po qid CEPHALEXIN 24266888699 No Longer Active Suzan Boo APRN Active FLOVENT HFA 110 MCG/ACT AERO 2 puffs inhaled b.i.d. FLUTICASONE PROPIONATE HFA 97895188358 Active Renzo Barajas Norberto FONSECA Active RISPERDAL 4 MG ORAL TABS 1 tab at bedtime RISPERIDONE 79586292344 Active Samantha Rothman RMA Active ZOFRAN 4 MG TABS 1 po q6hr PRN Nausea ONDANSETRON HCL No Longer Active Suzan Boo APRN Active FLUTICASONE PROPIONATE 50 MCG/ACT SUSP 2 sprays each nostril daily before bed. FLUTICASONE PROPIONATE 18613501632 No Longer Active Suzan Boo APRN Active ASPIRIN 325 MG ORAL TABS 1 tab q.d ASPIRIN 10422968712 No Longer Active Suzan Boo APRN Active HALOPERIDOL 10 MG ORAL TABS 1 tab q.d HALOPERIDOL 47919921700 No Longer Active Suzan Boo APRN Active GUAIFENESIN-CODEINE 100-10 MG/5ML SYRP 5ml every 4 to 6 hours as needed for cough GUAIFENESIN-CODEINE 35981642916 No Longer Active Suzan Boo APRN Active ZITHROMAX Z-EARNEST 250 MG TABS 2 today and then 1 daily for 4 days AZITHROMYCIN 16471995324 No Longer Active Suzan Boo APRN Active CLONAZEPAM 1 MG ORAL TABS 1 twice a day and an additional 1 tablet every other day as needed for pseudoseizures or anxiety CLONAZEPAM 19389400376 Active Suzan Boo APRN Active HYDROCODONE-ACETAMINOPHEN 5-325 MG ORAL TABS 1 tab two times a day HYDROCODONE-ACETAMINOPHEN 63661177424 No Longer Active Ahmet Carbajal MD Active LAMICTAL 100 MG ORAL TABS 1 tab 2 times qd. LAMOTRIGINE 41811730821 Active Ahmet Carbajal MD Active PREDNISONE 20 MG TABS 2 daily for 5 days then 1 daily for 5 days PREDNISONE 11658571011 No Longer Active Ahmet Carbajal MD Active FLUTICASONE PROPIONATE 50 MCG/ACT SUSP 1 to 2 sprays each nostril daily for allergies FLUTICASONE PROPIONATE 09365380044 Active Tila Nicolas Active BENADRYL 25 MG CAP 4 po at bedtime for insomnia DIPHENHYDRAMINE HCL 54437442275 No Longer Active Ahmet Carbajal MD Active ADVAIR DISKUS 250-50 MCG/DOSE INH AEPB 1 puff twice a day for asthma FLUTICASONE-SALMETEROL 25537051743 No Longer Active Ahmet Carbajal MD Active KLONOPIN 1 MG ORAL TABS 1 tab po TID CLONAZEPAM 08443037131 No Longer Active Ahmet Carbajal MD Active ABILIFY MAINTENA 400 MG IM SUSR 400mg injection every 26 days ARIPIPRAZOLE 93071391092 No Longer Active Ahmet Carbajal MD Active TRAMADOL HCL 50 MG TABS 1/2-1 tab TID PRN TRAMADOL HCL 03684303040 No Longer Active Ahmet Carbajal MD Active BACTRIM DS 800-160 MG TABS 1 twice a day SULFAMETHOXAZOLE- TRIMETHOPRIM 32141544870 No Longer Active Ahmet Carbajal MD Active PROAIR HFA 108 (90 BASE) MCG/ACT AERS 2 puffs four times a day as needed 2015 ALBUTEROL SULFATE 34708986614 Active Honey Hinton MANAGER [employer] Active MONISTAT 7 COMBO PACK WOODROW 100 & 2 MG-% (9GM) VAG KIT 1 applicatorful per vagina q pm x 7 MICONAZOLE NITRATE 64066395039 No Longer Active Ahmet Carbajal MD Active FLAGYL 500 MG TAB 1 tablet by mouth bid METRONIDAZOLE 51582217360 No Longer Active Ahmet Carbajal MD Active OXYCODONE HCL ER 10 MG ORAL T12A 1/2 tab by mouth every 4 hours prn OXYCODONE HCL 02589032415 No Longer Active Ahmet Carbajal MD Active METHYLPREDNISOLONE 4 MG ORAL TABS po daily METHYLPREDNISOLONE 34264892995 No Longer Active Ahmet Carbajal MD Active LEVOFLOXACIN 500 MG ORAL TABS po daily LEVOFLOXACIN 09984930022 No Longer Active Ahmet Carbajal MD Active VIIBRYD 10 MG ORAL TABS Take 1 tablet once a day VILAZODONE HCL 91968666889 No Longer Active Ahmet Carbajal MD Active TOPAMAX 50 MG ORAL TABS 1 tab twice daily TOPIRAMATE 35370201699 No Longer Active Ahmet Carbajal MD Active DICLOFENAC SODIUM 50 MG TBEC 1 tablet by mouth four times daily PRN Pain 2015 DICLOFENAC SODIUM 18613600193 No Longer Active Ahmet Carbajal MD Active ADZENYS XR-ODT 6.3 MG ORAL TBED 1 tab po daily for ADHD AMPHETAMINE 79317497651 No Longer Active Ahmet Carbajal MD Active CHANTIX 1 MG TABS 1 twice a day to help quit smoking VARENICLINE TARTRATE 41235886031 No Longer Active Dipika Burgos MD Active CHANTIX STARTING MONTH EARNEST 0.5 MG X 11 & 1 MG X 42 TABS take as directed 2015 VARENICLINE TARTRATE 70791342438 No Longer Active Dipika Burgos MD Active TESSALON PERLES 100 MG CAP 1 to 2 tablets by mouth 3 times daily as needed for cough BENZONATATE 50298773422 No Longer Active Luigi Martínez APRN Active IMITREX 50 MG ORAL TABS 0.5 po x 1 PRN Headache. May repeat dose x 1 in 2 hours if needed SUMATRIPTAN SUCCINATE 37570117031 Active TAMARA Casey Active HYDROCODONE-ACETAMINOPHEN 5-325 MG TABS 1 to 2 four times a day as needed for pain use until can be seen by specialist HYDROCODONE- ACETAMINOPHEN 26263278530 No Longer Active Vishal Hui MD Active PROAIR HFA 108 (90 BASE) MCG/ACT AERS 2 puffs four times a day as needed 2015 ALBUTEROL SULFATE 82330009254 No Longer Active Vishal Hui MD Active PREDNISONE 20 MG TABS 2 daily for 5 days then 1 daily for 5 days PREDNISONE 48162468482 No Longer Active Vishal Hui MD Active ZITHROMAX Z-EARNEST 250 MG TABS 2 today and then 1 daily for 4 days AZITHROMYCIN 03292397412 No Longer Active Vishal Hui MD Active DICLOFENAC POTASSIUM TABS Take 1 tablet twice a day (pt. is not sure of the dose.) DICLOFENAC POTASSIUM TABS 81445951163 No Longer Active Vishal Hui MD Active VERAPAMIL HCL ER 120 MG ORAL CR-TABS Take 1 tablet by mouth twice a day. VERAPAMIL HCL 82663543581 Active Vishal Hui MD Active FLAGYL 500 MG TAB 1 tablet by mouth bid METRONIDAZOLE 78603190965 No Longer Active Vishal Hui MD Active VALIUM 5 MG TAB Take 1-2 tablets daily DIAZEPAM 10037359265 No Longer Active Fabiola Johnson APRN Active METOPROLOL TARTRATE 25 MG ORAL TABS 1/2 tablet twice daily for heart rate and blood pressure METOPROLOL TARTRATE 27581875473 No Longer Active Fabiola Johnson APRN Active MIRALAX PACK 1 po qd PRN Constipation POLYETHYLENE GLYCOL 3350 74916855087 No Longer Active Ahmet Carbajal MD Active MINIPRESS 2 MG CAPS 4 cap po at night PRAZOSIN HCL 88874310517 No Longer Active Ahmet Carbajal MD Active PIROXICAM 20 MG CAPS 1 cap po qd PRN Pain PIROXICAM 35334724081 No Longer Active Ahmet Carbajal MD Active TRAMADOL HCL 50 MG TABS 1-2 po TID PRN Pain TRAMADOL HCL 90757182077 No Longer Active Ahmet Carbajal MD Active METOPROLOL TARTRATE 50 MG TAB 1 po bid METOPROLOL TARTRATE 48408794306 No Longer Active Ahmet Carbajal MD Active ABILIFY 15 MG ORAL TABS 1 tab daily ARIPIPRAZOLE 59184176154 No Longer Active Ahmet Carbajal MD Active PROZAC 20 MG ORAL CAPS 1 tab daily FLUOXETINE HCL 33445847797 No Longer Active Ahmet Carbajal MD Active AMBIEN 5 MG ORAL TABS 1 tab at bedtime ZOLPIDEM TARTRATE 45664067844 No Longer Active Ahmet Carbajal MD Active PREDNISONE 20 MG TAB 2 tabs daily for 4 days, 1 tab daily for 4 days, 1/2 tab daily for 4 days PREDNISONE 04226657397 No Longer Active Ahmet Carbajal MD Active KEFLEX 500 MG CAP 1 po TID x 10 days CEPHALEXIN 56588718106 No Longer Active Vishal Hui MD Active SAPHRIS 5 MG SUBL 1 po bid ASENAPINE MALEATE 57897951965 No Longer Active Jillina Frazell MANAGER [employer]NAGEMENT Active LATUDA 80 MG TABS Take one by mouth daily LURASIDONE HCL 11782656233 No Longer Active Jillina Frazell MANAGER [employer]NAGEMENT Active AMLODIPINE BESYLATE 5 MG TABS 1 tablet by mouth daily AMLODIPINE BESYLATE 38627550100 No Longer Active Jillina Frazell MANAGER [employer]NAGEMENT Active AMITRIPTYLINE HCL 100 MG TAB one at hs AMITRIPTYLINE HCL 27356336514 No Longer Active Vishal Hui MD Active TRAZODONE HCL 100 MG TAB take 1 at bedtime TRAZODONE HCL 10457042918 No Longer Active Vishal Hui MD Active VYVANSE 40 MG CAPS 1 daily, LISDEXAMFETAMINE DIMESYLATE 16604604047 No Longer Active Vishal Hui MD Active IBUPROFEN 600 MG TAB 1 po TID PRN IBUPROFEN 35258446456 No Longer Active Vishal Hui MD Active PROZAC 20 MG CAP Take one by mouth daily FLUOXETINE HCL 69773185907 No Longer Active Vishal Hui MD Active BACTRIM DS 800-160 MG TABS 1 pill by mouth twice daily SULFAMETHOXAZOLE-TRIMETHOPRIM 77137380585 No Longer Active Sahara Rodriguez MD PhD Active DIFLUCAN 150 MG TAB 1 tablet by mouth daily FLUCONAZOLE 56651019475 No Longer Active Vishal Hui MD Active TIZANIDINE HCL 4 MG TABS 1 po q6hr PRN Muscle Spasm/Back Pain TIZANIDINE HCL 11753535144 Active TAMARA Casey Active CLINDAMYCIN HCL 150 MG CAPS 1 four times a day CLINDAMYCIN HCL 79150127249 No Longer Active Neeraj Collins MD Active KEFLEX 500 MG ORAL CAPS 1 cap QID by mouth CEPHALEXIN 86584476343 No Longer Active Neeraj Collins MD Active DIFLUCAN 150 MG TABS 1 pill every other day x 2 doses FLUCONAZOLE 35641471195 No Longer Active Sahara Rodriguez MD PhD Active MELATONIN 3 MG CAPS 2 po q hs MELATONIN 40648708317 No Longer Active Sahara Rodriguez MD PhD Active MULTIVITAMINS CAPS Take one by mouth daily MULTIPLE VITAMIN 80993357066 No Longer Active Sahara Rodriguez MD PhD Active BACTRIM DS 800-160 MG TAB 1 tab by mouth twice daily TRIMETHOPRIM-SULFAMETHOXAZOLE 09873289769 No Longer Active Sahara Rodriguez MD PhD Active [facility] PROBIOTIC ORAL CHEW 2 daily po PROBIOTIC PRODUCT 06580796604 No Longer Active Sahara Rodriguez MD PhD Active BACTRIM DS 800-160 MG TABS 1 po BID x 7 days SULFAMETHOXAZOLE-TRIMETHOPRIM 60646789048 No Longer Active Vishal Hui MD Active CHANTIX STARTING MONTH EARNEST 0.5 MG X 11 & 1 MG X 42 TABS 0.5mg daily for 3 days , then 0.5mg BID for 4 days, then 1mg BID VARENICLINE TARTRATE 10394084606 No Longer Active Lisette Scarrow, RMA Active VERAPAMIL HCL CR 120 MG TAB CR 1 po bid VERAPAMIL HCL 26329510865 No Longer Active Vishal Hui MD Active METOPROLOL SUCCINATE 50 MG TB24 1 tablet by mouth daily METOPROLOL SUCCINATE 98749673775 No Longer Active Vishal Hui MD Active SAPHRIS 10 MG SUBL 1 tab po bid ASENAPINE MALEATE 63863148173 No Longer Active Vishal Hui MD Active LISINOPRIL 20 MG TABS 1 tab po qd LISINOPRIL 86429636383 No Longer Active Vishal Hui MD Active LATUDA 20 MG TABS Take one by mouth daily LURASIDONE HCL 41670048195 No Longer Active Vishal Hui MD Active TRAZODONE HCL 50 MG TABS 1/2 tab po qd prn for anxiety TRAZODONE HCL 32887356717 No Longer Active Vishal Hui MD Active OMEPRAZOLE 20 MG TBEC 1 po q a.m. 30min prior to first food intake OMEPRAZOLE 38466773256 Active TAMARA Casey Active RANITIDINE HCL 150 MG CAPS 1 twice a day RANITIDINE HCL 82251531886 Active Lynda Xiao LPN Active LINZESS 290 MCG CAPS Take one by mouth daily LINACLOTIDE 53085378911 No Longer Active Vishal Hui MD Active SAPHRIS 5 MG SUBL 1 tab po qd ASENAPINE MALEATE 46183419215 No Longer Active Vishal Hui MD Active ZALEPLON 10 MG CAPS 1 cap po every other night ZALEPLON 47873372112 No Longer Active Vishal Hui MD Active LYRICA 50 MG CAPS 1 tab po TID PREGABALIN 19883793674 No Longer Active Vishal Hui MD Active LORATADINE 10 MG TABS 1 tab po qd LORATADINE 28856303175 No Longer Active Vishal Hui MD Active VERAPAMIL HCL ER 180 MG CR-TABS 1 tab po bid VERAPAMIL HCL 62906546931 No Longer Active Vishal Hui MD Active MIRALAX POWD 1 capfull once daily POLYETHYLENE GLYCOL 3350 63470698917 No Longer Active Vishal Hui MD Active PREDNISONE 20 MG TABS 1 tab po qd PREDNISONE 44131859516 No Longer Active Renzo Thornton DO Active LEVOFLOXACIN 500 MG TABS 1 tab po qd LEVOFLOXACIN 09953977268 No Longer Active Renzo Thornton DO Active BUSPIRONE HCL 15 MG TABS 1 tab po TID BUSPIRONE HCL 87746168073 No Longer Active Renzo Thornton DO Active BENZTROPINE MESYLATE 1 MG TABS 1 tab po qd BENZTROPINE MESYLATE 57874574783 No Longer Active Renzo Thornton DO Active ATENOLOL 25 MG TABS 1 tab po qd ATENOLOL 02990886312 No Longer Active Renzo Thornton DO Active ESCITALOPRAM OXALATE 20 MG TABS 1 tab po qd ESCITALOPRAM OXALATE 34370813477 No Longer Active Renzo Thornton DO Active ADVAIR DISKUS 250-50 MCG/DOSE AEPB 1 puff BID FLUTICASONE-SALMETEROL 51577040389 No Longer Active Renzo Thornton DO Active PREDNISONE 20 MG TAB 2 tabs daily for 3 days, 1 tab daily for 3 days, 1/2 tab daily for 2 days PREDNISONE 75029873194 No Longer Active Vishal Hui MD Active CEFDINIR 300 MG CAPS by mouth twice a day CEFDINIR 04309403186 No Longer Active Vishal Hui MD Active LANSOPRAZOLE 30 MG CPDR 1 cap po qd LANSOPRAZOLE 07816842478 No Longer Active Vishal Hui MD Active BACLOFEN 20 MG TABS 1 tab po tid BACLOFEN 80748556817 No Longer Active Vishal Hui MD Active ADVAIR DISKUS 250-50 MCG/DOSE AEPB 1 puff BID ADVAIR DISKUS 250-50 MCG/DOSE AEPB FLUTICASONE-SALMETEROL Inactive ESCITALOPRAM OXALATE 20 MG TABS 1 tab po qd ESCITALOPRAM OXALATE 20 MG TABS 912784 ESCITALOPRAM OXALATE Inactive ATENOLOL 25 MG TABS 1 tab po qd ATENOLOL 25 MG TABS 582032 ATENOLOL Inactive BENZTROPINE MESYLATE 1 MG TABS 1 tab po qd BENZTROPINE MESYLATE 1 MG TABS 237238 BENZTROPINE MESYLATE Inactive BUSPIRONE HCL 15 MG TABS 1 tab po TID BUSPIRONE HCL 15 MG TABS 754045 BUSPIRONE HCL Inactive LEVOFLOXACIN 500 MG TABS 1 tab po qd LEVOFLOXACIN 500 MG TABS 165005 LEVOFLOXACIN Inactive PREDNISONE 20 MG TABS 1 tab po qd PREDNISONE 20 MG TABS 207487 PREDNISONE Inactive MIRALAX POWD 1 capfull once daily MIRALAX POWD 232881 POLYETHYLENE GLYCOL 3350 Inactive VERAPAMIL HCL ER 180 MG CR-TABS 1 tab po bid VERAPAMIL HCL ER 180 MG CR-TABS VERAPAMIL HCL Inactive LORATADINE 10 MG TABS 1 tab po qd LORATADINE 10 MG TABS 447560 LORATADINE Inactive LYRICA 50 MG CAPS 1 tab po TID LYRICA 50 MG CAPS PREGABALIN Inactive ZALEPLON 10 MG CAPS 1 cap po every other night ZALEPLON 10 MG CAPS 318996 ZALEPLON Inactive SAPHRIS 5 MG SUBL 1 tab po qd SAPHRIS 5 MG SUBL ASENAPINE MALEATE Inactive TRAZODONE HCL 50 MG TABS 1/2 tab po qd prn for anxiety TRAZODONE HCL 50 MG TABS 975183 TRAZODONE HCL Inactive LATUDA 20 MG TABS Take one by mouth daily LATUDA 20 MG TABS LURASIDONE HCL Inactive LISINOPRIL 20 MG TABS 1 tab po qd LISINOPRIL 20 MG TABS 097387 LISINOPRIL Inactive SAPHRIS 10 MG SUBL 1 [...] twice daily BACTRIM DS 800-160 MG TAB 819371 TRIMETHOPRIM-SULFAMETHOXAZOLE Inactive MULTIVITAMINS CAPS Take one by mouth daily MULTIVITAMINS CAPS MULTIPLE VITAMIN Inactive MELATONIN 3 MG CAPS 2 po q hs MELATONIN 3 MG CAPS 367796 MELATONIN Inactive KEFLEX 500 MG ORAL CAPS 1 cap QID by mouth KEFLEX 500 MG ORAL CAPS 628395 CEPHALEXIN Inactive CLINDAMYCIN HCL 150 MG CAPS 1 four times a day CLINDAMYCIN HCL 150 MG CAPS 19740326 CLINDAMYCIN HCL Inactive DIFLUCAN 150 MG TAB 1 tablet by mouth daily DIFLUCAN 150 MG TAB 208793 FLUCONAZOLE Inactive PROZAC 20 MG CAP Take one by mouth daily PROZAC 20 MG CAP 166194 FLUOXETINE HCL Inactive IBUPROFEN 600 MG TAB 1 po TID PRN IBUPROFEN 600 MG TAB 674240 IBUPROFEN Inactive VYVANSE 40 MG CAPS 1 daily, VYVANSE 40 MG CAPS LISDEXAMFETAMINE DIMESYLATE Inactive TRAZODONE HCL 100 MG TAB take 1 at bedtime TRAZODONE HCL 100 MG TAB 026587 TRAZODONE HCL Inactive AMITRIPTYLINE HCL 100 MG TAB one at hs AMITRIPTYLINE HCL 100 MG TAB 765243 AMITRIPTYLINE HCL Inactive AMLODIPINE BESYLATE 5 MG TABS 1 tablet by mouth daily AMLODIPINE BESYLATE 5 MG TABS 743254 AMLODIPINE BESYLATE Inactive LATUDA 80 MG TABS Take one by mouth daily LATUDA 80 MG TABS LURASIDONE HCL Inactive SAPHRIS 5 MG SUBL 1 po bid SAPHRIS 5 MG SUBL ASENAPINE MALEATE Inactive PREDNISONE 20 MG TAB 2 tabs daily for 4 days, 1 tab daily for 4 days, 1/2 tab daily for 4 days PREDNISONE 20 MG TAB 919915 PREDNISONE Inactive AMBIEN 5 MG ORAL TABS 1 tab at bedtime AMBIEN 5 MG ORAL TABS 902471 ZOLPIDEM TARTRATE Inactive PROZAC 20 MG ORAL CAPS 1 tab daily PROZAC 20 MG ORAL CAPS 693770 FLUOXETINE HCL Inactive ABILIFY 15 MG ORAL TABS 1 tab daily ABILIFY 15 MG ORAL TABS 214617 ARIPIPRAZOLE Inactive METOPROLOL TARTRATE 50 MG TAB 1 po bid METOPROLOL TARTRATE 50 MG TAB 833934 METOPROLOL TARTRATE Inactive TRAMADOL HCL 50 MG TABS 1-2 po TID PRN Pain TRAMADOL HCL 50 MG TABS 793673 TRAMADOL HCL Inactive PIROXICAM 20 MG CAPS 1 cap po qd PRN Pain PIROXICAM 20 MG CAPS 677987 PIROXICAM Inactive MINIPRESS 2 MG CAPS 4 cap po at night MINIPRESS 2 MG CAPS 333297 PRAZOSIN HCL Inactive MIRALAX PACK 1 po qd PRN Constipation MIRALAX PACK 146351 POLYETHYLENE GLYCOL 3350 Inactive METOPROLOL TARTRATE 25 MG ORAL TABS 1/2 tablet twice daily for heart rate and blood pressure METOPROLOL TARTRATE 25 MG ORAL TABS 468469 METOPROLOL TARTRATE Inactive VALIUM 5 MG TAB Take 1-2 tablets daily VALIUM 5 MG TAB 207131 DIAZEPAM Inactive FLAGYL 500 MG TAB 1 tablet by mouth bid FLAGYL 500 MG TAB 774075 METRONIDAZOLE Inactive DICLOFENAC POTASSIUM TABS Take 1 tablet twice a day (pt. is not sure of the dose.) DICLOFENAC POTASSIUM TABS DICLOFENAC POTASSIUM TABS Inactive ZITHROMAX Z-EARNEST 250 MG TABS 2 today and then 1 daily for 4 days ZITHROMAX Z-EARNEST 250 MG TABS 1089230 AZITHROMYCIN Inactive PREDNISONE 20 MG TABS 2 daily for 5 days then 1 daily for 5 days PREDNISONE 20 MG TABS 609764 PREDNISONE Inactive PROAIR HFA 108 (90 BASE) MCG/ACT AERS 2 puffs four times a day as needed 2015 PROAIR HFA 108 (90 BASE) MCG/ACT AERS ALBUTEROL SULFATE Inactive HYDROCODONE-ACETAMINOPHEN 5-325 MG TABS 1 to 2 four times a day as needed for pain use until can be seen by specialist HYDROCODONE- ACETAMINOPHEN 5-325 MG TABS 133281 HYDROCODONE-ACETAMINOPHEN Inactive TESSALON PERLES 100 MG CAP 1 to 2 tablets by mouth 3 times daily as needed for cough TESSALON PERLES 100 MG CAP 179001 BENZONATATE Inactive CHANTIX STARTING MONTH EARNEST 0.5 [...] Pain 2015 DICLOFENAC SODIUM 50 MG TBEC 637874 DICLOFENAC SODIUM Inactive TOPAMAX 50 MG ORAL TABS 1 tab twice daily TOPAMAX 50 MG ORAL TABS 094589 TOPIRAMATE Inactive VIIBRYD 10 MG ORAL TABS Take 1 tablet once a day VIIBRYD 10 MG ORAL TABS VILAZODONE HCL Inactive LEVOFLOXACIN 500 MG ORAL TABS po daily LEVOFLOXACIN 500 MG ORAL TABS 497535 LEVOFLOXACIN Inactive METHYLPREDNISOLONE 4 MG ORAL TABS po daily METHYLPREDNISOLONE 4 MG ORAL TABS 859470 METHYLPREDNISOLONE Inactive OXYCODONE HCL ER 10 MG ORAL T12A 1/2 tab by mouth every 4 hours prn OXYCODONE HCL ER 10 MG ORAL T12A OXYCODONE HCL Inactive FLAGYL 500 MG TAB 1 tablet by mouth bid FLAGYL 500 MG TAB 211835 METRONIDAZOLE Inactive MONISTAT 7 COMBO PACK WOODROW 100 & 2 MG-% (9GM) VAG KIT 1 applicatorful per vagina q pm x 7 MONISTAT 7 COMBO PACK WOODROW 100 & 2 MG-% (9GM) VAG KIT MICONAZOLE NITRATE Inactive BACTRIM DS 800-160 MG TABS 1 twice a day BACTRIM DS 800-160 MG TABS 691073 SULFAMETHOXAZOLE-TRIMETHOPRIM Inactive TRAMADOL HCL 50 MG TABS 1/2-1 tab TID PRN TRAMADOL HCL 50 MG TABS 135393 TRAMADOL HCL Inactive ABILIFY MAINTENA 400 MG IM SUSR 400mg injection every 26 days ABILIFY MAINTENA 400 MG IM SUSR ARIPIPRAZOLE Inactive KLONOPIN 1 MG ORAL TABS 1 tab po TID KLONOPIN 1 MG ORAL TABS 813202 CLONAZEPAM Inactive ADVAIR DISKUS 250-50 MCG/DOSE INH AEPB 1 puff twice a day for asthma ADVAIR DISKUS 250-50 MCG/DOSE INH AEPB FLUTICASONE- SALMETEROL Inactive BENADRYL 25 MG CAP 4 po at bedtime for insomnia BENADRYL 25 MG CAP DIPHENHYDRAMINE HCL Inactive PREDNISONE 20 MG TABS 2 daily for 5 days then 1 daily for 5 days PREDNISONE 20 MG TABS [id number] PREDNISONE Inactive HYDROCODONE-ACETAMINOPHEN 5-325 MG ORAL TABS 1 tab two times a day HYDROCODONE-ACETAMINOPHEN 5-325 MG ORAL TABS [id number] HYDROCODONE-ACETAMINOPHEN Inactive ZITHROMAX Z-EARNEST 250 MG TABS 2 today and then 1 daily for 4 days ZITHROMAX Z-EARNEST 250 MG TABS [id number] AZITHROMYCIN Inactive GUAIFENESIN-CODEINE 100-10 MG/5ML SYRP 5ml every 4 to 6 hours as needed for cough GUAIFENESIN-CODEINE 100-10 MG/5ML SYRP 251619 GUAIFENESIN-CODEINE Inactive HALOPERIDOL 10 MG ORAL TABS 1 tab q.d HALOPERIDOL 10 MG ORAL TABS 838079 HALOPERIDOL Inactive ASPIRIN 325 MG ORAL TABS 1 tab q.d ASPIRIN 325 MG ORAL TABS 292628 ASPIRIN Inactive FLUTICASONE PROPIONATE 50 MCG/ACT SUSP 2 sprays each nostril daily before bed. FLUTICASONE PROPIONATE 50 MCG/ACT SUSP [id number] FLUTICASONE PROPIONATE Inactive ZOFRAN 4 MG TABS 1 po q6hr PRN Nausea ZOFRAN 4 MG TABS 069538 ONDANSETRON HCL Inactive KEFLEX 500 MG CAP 1 po qid KEFLEX 500 MG CAP 086697 CEPHALEXIN Inactive ACETAMINOPHEN-CODEINE 120-12 MG/5ML SOLN 5 ml by mouth every 4-6 hours if needed for cough ACETAMINOPHEN-CODEINE 120-12 MG/5ML SOLN 607049 ACETAMINOPHEN-CODEINE Inactive PREDNISONE 20 MG TAB 1 tablet daily x 4 days PREDNISONE 20 MG TAB 960288 PREDNISONE Inactive TROPICAMIDE 0.5 % OPHTH SOLN 1 drop PRN eye spasms TROPICAMIDE 0.5 % OPHTH SOLN 175012 TROPICAMIDE Inactive LEVAQUIN 500 MG TABS 1 daily for infection LEVAQUIN 500 MG TABS 334665 LEVOFLOXACIN Inactive PREDNISONE 10 MG TABS 2 daily for 5 days then 1 daily for 5 days PREDNISONE 10 MG TABS 575814 PREDNISONE Inactive EQ NICOTINE 21 MG/24HR TRANS [...] for cough TESSALON PERLES 100 MG CAPS 655529 BENZONATATE Inactive AMITIZA 8 MCG ORAL CAPS [...] twice a day MUPIROCIN 2 % OINT 333124 MUPIROCIN Inactive BACTRIM DS 800-160 MG TAB Take one (1) tablet by mouth twice a day for 5 days BACTRIM DS 800-160 MG TAB [id number] TRIMETHOPRIM- SULFAMETHOXAZOLE Inactive LACTULOSE 10 GM/15ML ORAL SOLN 30mL oral BID for IBS-C LACTULOSE 10 GM/15ML ORAL SOLN 757930 LACTULOSE Inactive MIRALAX ORAL POWD 17GMS DAILY IN WATER MIRALAX ORAL POWD 493857 POLYETHYLENE GLYCOL 3350 Inactive CEFDINIR 300 MG CAPS by mouth twice a day CEFDINIR 300 MG CAPS 519601 CEFDINIR Inactive PREDNISONE 20 MG TAB 2 tabs daily for 3 days, 1 tab daily for 3 days, 1/2 tab daily for 2 days PREDNISONE 20 MG TAB 435746 PREDNISONE Inactive BACTRIM DS 800-160 MG TABS 1 po BID x 7 days BACTRIM DS 800-160 MG TABS 19820521 SULFAMETHOXAZOLE-TRIMETHOPRIM Inactive DIFLUCAN 150 MG TABS 1 pill every other day x 2 doses DIFLUCAN 150 MG TABS 972436 FLUCONAZOLE Inactive BACTRIM DS 800-160 MG TABS 1 pill by mouth twice daily BACTRIM DS 800-160 MG TABS 19820521 SULFAMETHOXAZOLE-TRIMETHOPRIM Inactive KEFLEX 500 MG CAP 1 po TID x 10 days KEFLEX 500 MG CAP 945526 CEPHALEXIN Inactive Advance Directives Directive Description Start [...] % 11.0-15.0 platelet count 443 THOUSAND/UL 10*3/mm3 904-468 4769/03/01 mean platelet volume 8.2 fL 7.5-12.5 leukocyte [...] % 11.0-15.0 platelet count 349 THOUSAND/UL 10*3/mm3 018-833 6279/04/12 mean platelet volume 8.4 fL 7.5-12.5 Lab Report: CBC W/DIFF, Comp. Metabolic Panel, HGBA1C, Magnesium - Chemistry sodium, serum 141 mmol/L 301-044 7476/07/24 carbon dioxide, venous blood 27.8 mmol/L 21.0-32.0 [...] 369 10^3/MM^3 10*3/mm3 142-424 Lab Report: Chlamydia/GC APTIMA/69899 - Lab chlamydia DNA probe NOT DETECTED NOT DETECTED Lab Report: Chlamydia/GC APTIMA/18773 - Microbiology Neisseria gonorrhoeae DNA probe NOT DETECTED NOT DETECTED Lab Report: Chlamydia/GC APTIMA/16632, Urinalysis, Complete, with Reflex ... - Lab chlamydia DNA probe NOT DETECTED NOT DETECTED Lab Report: Chlamydia/GC APTIMA/03496, Urinalysis, Complete, with Reflex ... - Microbiology Neisseria gonorrhoeae DNA probe NOT DETECTED NOT DETECTED Lab Report: Chlamydia/GC APTIMA/88318, Urinalysis, Complete, with Reflex ... - Urinalysis microalbumin/total urine volume 2 mg/L Units converted. See lab report for original value. microalbumin/creatinine ratio, urine 9 MCG/MG CREAT mg/L <30 Lab Report: Comp. Metabolic Panel - Chemistry sodium, serum 140 mmol/L 047-246 4640/08/08 carbon dioxide, venous blood 33.7 mmol/L 21.0-32.0 potassium, serum 5.0 mmol/L 3.5-5.2 chloride, serum 103 mmol/L 98-107 blood glucose 80 mg/dL 65-110 urea nitrogen, blood 13 mg/dL 7-18 creatinine, serum 0.88 mg/dL 0.55-1.30 alanine aminotransferase (SGPT), serum 54 U/L -78 aspartate aminotransferase (SGOT), serum 29 U/L 15-37 calcium, serum 9.7 mg/dL 8.5-10.1 bilirubin, serum, total 0.30 mg/dL 0.00-1.00 sodium, serum 140 mmol/L 467-777 3364/06/28 carbon dioxide, venous blood 23.8 mmol/L 21.0-32.0 [...] negative Encounters Code Encounter Date Provider Facility CPT-55545 Level 3 Est. [facility] 11:36:[facility] Level 3 Est. Patient 10:53:17 [facility]68[facility] Level 3 Est. Patient 11:08:35 CDT Suzan [facility] CPT-78952 Level 3 Est. Patient 15:55:20 CDT Suzan formerly [facility]-69417 Level 4 Est. Patient 10:49:34 CDT Suzan formerly [facility]-20479 Level 3 Est. Patient 10:00:25 CDT Suzan [facility] CPT-54907 Level 3 Est. Patient 10:29:30 CDT Suzan [facility] CPT-20153 Level 3 Est. Patient 11:04:38 CDT Renzo Thornton [facility]-80009 Level 3 Est. Patient 11:15:58 SENIOR ENGINEERING TEAM LEADER Renzo Thornton [facility] CPT-23665 Level 3 Est. Patient 15:28:23 SENIOR ENGINEERING TEAM LEADER Suzan Boo [facility] CPT-83276 Level 4 Est. Patient 10:20:54 SENIOR ENGINEERING TEAM LEADER Suzan Boo [facility] CPT-21085 Level 3 Est. Patient 11:47:37 SENIOR ENGINEERING TEAM LEADER Ahmet Carbajal MD [facility]-77409 Level 3 Est. Patient 10:40:11 SENIOR ENGINEERING TEAM LEADER Ahmet Carbajal MD [facility] CPT-35647 Level 3 Est. Patient 15:07:06 SENIOR ENGINEERING TEAM LEADER Neeraj Collins MD [facility] CPT-07342 Level 4 Est. Patient 14:45:00 SENIOR ENGINEERING TEAM LEADER Ahmet Carbajal MD [facility] CPT-37618 Level 3 Est. Patient 13:59:59 CDT Luigi Martínez [facility] CPT-83294 Level 3 Est. Patient 18:18:53 CDT Neeraj Collins MD [facility] CPT-72987 Level 3 Est. Patient 15:50:44 CDT Vishal Hui MD [facility] CPT-94492 Level 3 Est. Patient 11:36:17 CDT Ahmet Carbajal MD [facility] CPT-05908 Level 3 Est. Patient 13:29:16 CDT Vishal Hui MD [facility] CPT-01445 Level 3 Est. Patient 14:27:52 CDT Neeraj Collins MD [facility] CPT-42348 Level 3 Est. Patient 08:56:03 CDT Luigi Martínez [facility] CPT-43680 Level 4 Est. Patient 12:11:48 CDT Fabiola Johnson [facility] CPT-29989 Level 3 New Patient 16:53:37 CDT Albert Caldera MD [facility] CPT-50235 Level 3 Est. Patient 11:25:49 CDT Renzo Thornton DO [facility] CPT-35071 Level 3 Est. Patient 15:22:01 CDT Ahmet Carbajal MD [facility] CPT-44461 Level 4 Est. Patient 09:00:51 SENIOR ENGINEERING TEAM LEADER Vishal Hui MD [facility] CPT-12685 Level 3 Est. Patient 11:37:33 SENIOR ENGINEERING TEAM LEADER Vishal Hui MD [facility] CPT-61313 Level 3 Est. Patient 08:41:09 SENIOR ENGINEERING TEAM LEADER Vishal Hui MD [facility] CPT-66038 Level 4 Est. Patient 10:19:35 SENIOR ENGINEERING TEAM LEADER Vishal Hui MD [facility] CPT-12734 Level 3 Est. Patient 13:35:45 CDT Vishal Hui MD [facility] CPT-46302 Level 4 Est. Patient 10:08:37 CDT Vishal Hui MD [facility] CPT-96595 Level 3 Est. Patient 11:22:10 CDT Vishal Hui MD [facility] CPT-67306 Level 3 Est. Patient 11:03:32 CDT Sahara Rodriguez MD [facility]-34979 Level 3 Est. Patient 09:41:35 CDT Vishal Hui MD [facility] CPT-64405 Level 3 Est. Patient 12:00:41 CDT Neeraj Collins MD [facility] CPT-17744 Level 3 Est. Patient 09:16:24 CDT Vishal Hui MD [facility] CPT-68972 Level 4 Est. Patient 13:59:09 CDT Neeraj Collins MD [facility] CPT-87582 Level 3 Est. Patient 15:19:43 CDT Renzo Thornton DO [facility] CPT-91870 Level 3 Est. Patient 18:10:26 CDT Sahara Rodriguez MD [facility]-38783 Level 3 Est. Patient 14:49:50 CDT Vishal Hui MD [facility] CPT-32280 Level 4 Est. Patient 18:41:46 CDT Neeraj Collins MD [facility] CPT-55077 Level 4 Est. Patient 09:18:38 SENIOR ENGINEERING TEAM LEADER Vishal Hui MD [facility] CPT-02756 Level 3 Est. Patient 14:43:55 SENIOR ENGINEERING TEAM LEADER Vishal Hui MD [facility] CPT-41350 Level 3 Est. Patient 15:26:33 SENIOR ENGINEERING TEAM LEADER [facility] Level 3 Est. Patient 10:32:14 SENIOR ENGINEERING TEAM LEADER Vishal Hui MD [facility] CPT-85352 Level 3 Est. Patient 15:12:52 SENIOR ENGINEERING TEAM LEADER Vishal Hui MD [facility] CPT-01919 Level 4 Est. Patient 09:19:27 CDT Vishal Hui MD [facility] CPT-59453 Level 3 Est. Patient 15:53:00 CDT Renzo Thornton [facility] CPT-02913 Level 3 Est. Patient 15:50:30 CDT Renzo Thornton [facility] CPT-81322 Level 3 Est. Patient 16:55:24 CDT Vishal Hui MD [facility] Procedures Code Procedure Name Date Entry Date Standard Description CPT-86849 UA Dip Auto (Floor Use Only) 11:36:47 CDT CPT-56395 Venipuncture Draw Fee 10:53:17 CDT CPT-11621 EKG Trac and Interp - XRAY USE ONLY 15:59:30 CDT 09/13 CPT-91809 Chest 1V Frontal - XRAY USE ONLY 15:59:30 CDT CPT-53790 Venipuncture Draw Fee 15:44:02 CDT CPT-04631 Venipuncture Draw Fee 08:41:12 CDT CPT-71463 Abd compl w upright - XRAY USE ONLY 10:27:59 CDT 06/28 CPT-40205 Smoking Cessation counseling 11:15:58 SENIOR ENGINEERING TEAM LEADER CPT-G0439 [facility] Annual Wellness Exam 09:30:58 SENIOR ENGINEERING TEAM LEADER CPT-57956 TSH - LAB USE ONLY 08:50:26 SENIOR ENGINEERING TEAM LEADER CPT-56323 CBC - LAB USE ONLY 08:50:26 SENIOR ENGINEERING TEAM LEADER CPT-62664 Venipuncture Draw Fee 08:50:26 SENIOR ENGINEERING TEAM LEADER CPT-57016 Abx/Therapy Injection 17:34:30 SENIOR ENGINEERING TEAM LEADER CPT-09430 Nexplanon Removal with Reinsertion 14:09:32 CDT CPT-J7307 Nexplanon (Implant) 14:09:32 CDT CPT-OV Office Visit 14:09:32 CDT CPT-65514 UA w micro - LAB USE ONLY 16:21:13 CDT CPT-42512 Wet Mount - LAB USE ONLY 16:21:13 CDT CPT-74055 First Vx - Ix admin for Medicare patients 14:37:47 CDT CPT-50262 Fluzone Preservative Free Intramuscular Suspension 14:37 :47 CDT CPT-99765 Abx/Therapy Injection 13:54:22 CDT CPT-48300 Abx/Therapy Injection 08:47:09 CDT CPT-76526 Abx/Therapy Injection 13:29:56 CDT CPT-73858 Abx/Therapy Injection 08:36:16 CDT CPT-15478 Wet Mount - LAB USE ONLY 17:44:58 CDT CPT-23238 UA w micro - LAB USE ONLY 17:44:58 CDT CPT-91790 CMP - LAB USE ONLY 17:44:58 CDT CPT-86231 Venipuncture Draw Fee 17:44:58 CDT CPT-84616 Cervical Min 4V - XRAY USE ONLY 09:01:40 CDT CPT-56574 Chest 2V Frontal and Lat - XRAY USE ONLY 11:06:31 CDT CPT-16449 EKG Trac and Interp - XRAY USE ONLY 11:31:43 CDT 08/26 CPT-J3420 Vitamin B12 1000mcg (Cyanocobalamin) 08:10:26 SENIOR ENGINEERING TEAM LEADER 04/12 CPT-04646 Abx/Therapy Injection 08:10:26 SENIOR ENGINEERING TEAM LEADER CPT-G0438 Initial Annual Wellness Exam 19:01:01 SENIOR ENGINEERING TEAM LEADER CPT-J3420 Vitamin B12 1000mcg (Cyanocobalamin) 16:57:46 CDT 08/14 CPT-03846 Recombivax HB Injection Suspension 5 MCG/0.5ML 08:37:50 SENIOR ENGINEERING TEAM LEADER CPT-22479 Immunization Single Admin 08:37:50 SENIOR ENGINEERING TEAM LEADER CPT-J3420 Vitamin B12 1000mcg (Cyanocobalamin) 08:32:16 SENIOR ENGINEERING TEAM LEADER 03/11 CPT-81220 Abx/Therapy Injection 08:32:16 SENIOR ENGINEERING TEAM LEADER CPT-29703 Chest 2V Frontal and Lat 11:46:38 SENIOR ENGINEERING TEAM LEADER CPT-25715 Venipuncture Draw Fee 09:12:45 SENIOR ENGINEERING TEAM LEADER CPT-J3420 Vitamin B12 1000mcg (Cyanocobalamin) 08:50:15 SENIOR ENGINEERING TEAM LEADER 02/08 CPT-47948 Abx/Therapy Injection 08:50:15 SENIOR ENGINEERING TEAM LEADER CPT-Cryo Cryotherapy 10:19:35 SENIOR ENGINEERING TEAM LEADER CPT-000 Give Appropriate Flu Vaccine 09:22:16 CDT CPT-J3420 Vitamin B12 1000mcg (Cyanocobalamin) 19:08:57 CDT 01/11 CPT-87543 Abx/Therapy Injection 19:08:57 CDT CPT-J3420 Vitamin B12 1000mcg (Cyanocobalamin) 08:19:08 CDT 12/11 CPT-03970 Abx/Therapy Injection 08:19:08 CDT CPT-J3420 Vitamin B12 1000mcg (Cyanocobalamin) 14:48:00 CDT 11/09 CPT-68370 Abx/Therapy Injection 14:47:59 CDT CPT-J3420 Vitamin B12 1000mcg (Cyanocobalamin) 08:34:04 CDT 10/09 CPT-23896 Abx/Therapy Injection 08:34:04 CDT CPT-J3420 Vitamin B12 1000mcg (Cyanocobalamin) 09:18:52 CDT 09/11 CPT-32843 Abx/Therapy Injection 09:18:52 CDT CPT-J3420 Vitamin B12 1000mcg (Cyanocobalamin) 08:35:44 CDT 09/04 CPT-69332 Abx/Therapy Injection 08:35:44 CDT CPT-07910 Immunization Single Admin 11:07:16 CDT CPT-84015 Hepatitis B adult IM 11:07:16 CDT CPT-J3420 Vitamin B12 1000mcg (Cyanocobalamin) 11:00:49 CDT 08/28 CPT-J1040 Depo Medrol 80 mg (Methyl Prednisolone Acetate) 11:00: 49 CDT CPT-53699 Abx/Therapy Injection 11:00:49 CDT CPT-J1040 Depo Medrol 80 mg (Methyl Prednisolone Acetate) 09:16: 23 CDT CPT-J3420 Vitamin B12 1000mcg (Cyanocobalamin) 08:27:05 CDT 08/20 CPT-84463 Abx/Therapy Injection 08:27:05 CDT CPT-44215 Recombivax HB Injection Suspension 5 MCG/0.5ML 10:00:41 CDT CPT-43099 Administration single or combination vaccine inc oral 10 :00:41 CDT CPT-11157 Sono transvag pelvis non OB uterus ovaries cervix 16:36: 57 CDT CPT-48399 LS spine comp w obliq 09:50:55 SENIOR ENGINEERING TEAM LEADER CPT-06206 Abd compl w upright 09:50:55 SENIOR ENGINEERING TEAM LEADER CPT-J1100 Decadron 4mg (Dexamethasone) 15:51:24 SENIOR ENGINEERING TEAM LEADER CPT-J1030 Depo Medrol 40 mg (Methyl Prednisolone Acetate) 15:51: 24 SENIOR ENGINEERING TEAM LEADER CPT-42213 Abx/Therapy Injection 15:51:24 SENIOR ENGINEERING TEAM LEADER CPT-J1100 Decadron 4mg (Dexamethasone) 15:26:33 SENIOR ENGINEERING TEAM LEADER CPT-J1030 Depo Medrol 40 mg (Methyl Prednisolone Acetate) 15:26: 33 SENIOR ENGINEERING TEAM LEADER CPT-93484 Sono retroperitoneal complete kidneys and bladder 17:15: 30 CDT CPT-11180 Abd compl w upright 16:09:25 CDT CPT-J1100 Decadron 8mg (Dexamethasone) 17:07:57 CDT CPT-54286 Abx/Therapy Injection 17:07:57 CDT CPT-J1100 Decadron 8mg (Dexamethasone) 16:55:24 CDT CPT-37698 Chest 2V Frontal and Lat 16:32:44 CDT
--- OUTSIDE RECORDS SUMMARY | 2016-11-04 17:16 | XMS REPORT | Clinical Summary ---
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 V72.31 Active Suzan Boo [...] Cervicalgia Preop exam V72.84 Active Suzan Rajeev POLICE LIAISON Preoperative examination, unspecified Anxiety Disorder ICD-300.00 Inactive Vishal Hui MD Pneumonia, organism unspecified ICD-486 Inactive Vishal Hui MD Flank pain, right ICD-789.09 Inactive Vishal Hui MD G E R D ICD-530.81 Inactive Vishal Hui MD Health screening ICD-V70.0 Inactive Suzna Boo POLICE LIAISON Sinus tachycardia ICD-427.89 Inactive Suzan Boo POLICE LIAISON Smoker/tobacco use disorder-smoking cessation discussed ICD-305.1 Inactive [...] Hui MD Upper respiratory infection ICD-465.9 Inactive Szuan Boo APRN Other fracture of upper and [...] twice a day for 5 days TRIMETHOPRIM-SULFAMETHOXAZOLE 45026817733 Active Samantha WAGNERA Active MUPIROCIN 2 % OINT apply twice a day MUPIROCIN 56007515585 No Longer Active Suzan Boo APRN Active BACTRIM DS 800-160 MG TABS 1 twice a day SULFAMETHOXAZOLE-TRIMETHOPRIM 74000578152 No Longer Active Suzan Boo APRN Active DIFLUCAN 150 MG TABS 1 by mouth for yeast FLUCONAZOLE 84141800397 No Longer Active Suzan Boo APRN Active AMITIZA 8 MCG ORAL CAPS 1 capsule twice daily LUBIPROSTONE 46978077524 Active Sheila Calderon LPN Active LINZESS 290 MCG ORAL CAPS 1 tab 30 min prior to first meal each day. LINACLOTIDE 79714028527 No Longer Active Sheila Calderon LPN Active AMITIZA 8 MCG ORAL CAPS 1 tab BID LUBIPROSTONE 74239885168 No Longer Active Lynda Xiao LPN Active LACTULOSE 10 GM/15ML ORAL SOLN 30mL oral BID for IBS-C LACTULOSE 41781885338 Active Suzan Boo APRN Active TESSALON PERLES 100 MG CAPS 1 three times a day as needed for cough BENZONATATE 17392464389 No Longer Active Suzan Boo APRN Active BACTRIM DS 800-160 MG TABS 1 twice a day SULFAMETHOXAZOLE-TRIMETHOPRIM 32880737301 No Longer Active Suzan Boo APRN Active DIFLUCAN 150 MG TABS 1 by mouth for yeast FLUCONAZOLE 82759351140 No Longer Active Suzan Boo APRN Active EQ NICOTINE 21 MG/24HR TRANS PT24 Apply daily to stop smoking NICOTINE 80255334208 No Longer Active Suzan Boo APRN Active PREDNISONE 10 MG TABS 2 daily for 5 days then 1 daily for 5 days PREDNISONE 27438378318 No Longer Active Suzan Boo APRN Active LEVAQUIN 500 MG TABS 1 daily for infection LEVOFLOXACIN 45408164743 No Longer Active Suzan Boo APRN Active TROPICAMIDE 0.5 % OPHTH SOLN 1 drop PRN eye spasms TROPICAMIDE 90207971334 No Longer Active Suzan Boo APRN Active PREDNISONE 20 MG TAB 1 tablet daily x 4 days PREDNISONE 33779655308 No Longer Active Suzan Boo APRN Active ACETAMINOPHEN-CODEINE 120-12 MG/5ML SOLN 5 ml by mouth every 4-6 hours if needed for cough ACETAMINOPHEN-CODEINE 54821008474 No Longer Active Suzan Boo APRN Active KEFLEX 500 MG CAP 1 po qid CEPHALEXIN 51574496386 No Longer Active Suzan Boo APRN Active FLOVENT HFA 110 MCG/ACT AERO 2 puffs inhaled b.i.d. FLUTICASONE PROPIONATE HFA 31931817133 Active Renzo Thornton DO Active RISPERDAL 4 MG ORAL TABS 1 tab at bedtime RISPERIDONE 93601115443 Active Samantha WAGNERA Active ZOFRAN 4 MG TABS 1 po q6hr PRN Nausea ONDANSETRON HCL No Longer Active Suzan Boo APRN Active FLUTICASONE PROPIONATE 50 MCG/ACT SUSP 2 sprays each nostril daily before bed. FLUTICASONE PROPIONATE 03756089311 No Longer Active Suzan Boo APRN Active ASPIRIN 325 MG ORAL TABS 1 tab q.d ASPIRIN 92317957471 No Longer Active Suzan Boo APRN Active HALOPERIDOL 10 MG ORAL TABS 1 tab q.d HALOPERIDOL 70874047658 No Longer Active Suzan Boo APRN Active GUAIFENESIN-CODEINE 100-10 MG/5ML SYRP 5ml every 4 to 6 hours as needed for cough GUAIFENESIN-CODEINE 03254273392 No Longer Active Suzan Boo APRN Active ZITHROMAX Z-EARNEST 250 MG TABS 2 today and then 1 daily for 4 days AZITHROMYCIN 20793526562 No Longer Active Suzan Boo APRN Active CLONAZEPAM 1 MG ORAL TABS 1 twice a day and an additional 1 tablet every other day as needed for pseudoseizures or anxiety CLONAZEPAM 85670557997 Active Suzan Boo APRN Active HYDROCODONE-ACETAMINOPHEN 5-325 MG ORAL TABS 1 tab two times a day HYDROCODONE-ACETAMINOPHEN 11076915864 No Longer Active Ahmet Carbajal MD Active LAMICTAL 100 MG ORAL TABS 1 tab 2 times qd. LAMOTRIGINE 58075464207 Active Ahmet Carbajal MD Active PREDNISONE 20 MG TABS 2 daily for 5 days then 1 daily for 5 days PREDNISONE 29231991188 No Longer Active Ahmet Carbajal MD Active FLUTICASONE PROPIONATE 50 MCG/ACT SUSP 1 to 2 sprays each nostril daily for allergies FLUTICASONE PROPIONATE 86001857153 Active Tila Valenzuela Active BENADRYL 25 MG CAP 4 po at bedtime for insomnia DIPHENHYDRAMINE HCL 67246994162 No Longer Active Ahmet Carbajal MD Active ADVAIR DISKUS 250-50 MCG/DOSE INH AEPB 1 puff twice a day for asthma FLUTICASONE-SALMETEROL 40026622416 No Longer Active Ahmet Carbajal MD Active KLONOPIN 1 MG ORAL TABS 1 tab po TID CLONAZEPAM 40002027388 No Longer Active Ahmet Carbajal MD Active ABILIFY MAINTENA 400 MG IM SUSR 400mg injection every 26 days ARIPIPRAZOLE 77178935856 No Longer Active Ahmet Carbajal MD Active TRAMADOL HCL 50 MG TABS 1/2-1 tab TID PRN TRAMADOL HCL 61277928929 No Longer Active Ahmet Carbajal MD Active BACTRIM DS 800-160 MG TABS 1 twice a day SULFAMETHOXAZOLE- TRIMETHOPRIM 96997665347 No Longer Active Ahmet Carbajal MD Active PROAIR HFA 108 (90 BASE) MCG/ACT AERS 2 puffs four times a day as needed 2015 ALBUTEROL SULFATE 94928970537 Active Honey Hinton POLICE LIAISON Active MONISTAT 7 COMBO PACK WOODROW 100 & 2 MG-% (9GM) VAG KIT 1 applicatorful per vagina q pm x 7 MICONAZOLE NITRATE 79987816823 No Longer Active Ahmet Carbajal MD Active FLAGYL 500 MG TAB 1 tablet by mouth bid METRONIDAZOLE 18465783917 No Longer Active Ahmet Carbajal MD Active OXYCODONE HCL ER 10 MG ORAL T12A 1/2 tab by mouth every 4 hours prn OXYCODONE HCL 54468092259 No Longer Active Ahmet Carbajal MD Active METHYLPREDNISOLONE 4 MG ORAL TABS po daily METHYLPREDNISOLONE 60196067652 No Longer Active Ahmet Carbajal MD Active LEVOFLOXACIN 500 MG ORAL TABS po daily LEVOFLOXACIN 64084831748 No Longer Active Ahmet Carbajal MD Active VIIBRYD 10 MG ORAL TABS Take 1 tablet once a day VILAZODONE HCL 96162401894 No Longer Active Ahmet Carbajal MD Active TOPAMAX 50 MG ORAL TABS 1 tab twice daily TOPIRAMATE 70402140975 No Longer Active Ahmet Carbajal MD Active DICLOFENAC SODIUM 50 MG TBEC 1 tablet by mouth four times daily PRN Pain 2015 DICLOFENAC SODIUM 42367141776 No Longer Active Ahmet Carbajal MD Active ADZENYS XR-ODT 6.3 MG ORAL TBED 1 tab po daily for ADHD AMPHETAMINE 53420542375 No Longer Active Ahmet Carbajal MD Active CHANTIX 1 MG TABS 1 twice a day to help quit smoking VARENICLINE TARTRATE 16864097933 No Longer Active Dipika Burgos MD Active CHANTIX STARTING MONTH EARNEST 0.5 MG X 11 & 1 MG X 42 TABS take as directed 2015 VARENICLINE TARTRATE 74587455036 No Longer Active Dipika Burgos MD Active TESSALON PERLES 100 MG CAP 1 to 2 tablets by mouth 3 times daily as needed for cough BENZONATATE 54407577617 No Longer Active Luigi Martínez APRN Active IMITREX 50 MG ORAL TABS 0.5 po x 1 PRN Headache. May repeat dose x 1 in 2 hours if needed SUMATRIPTAN SUCCINATE 73718683694 Active Ahmet Carbajal MD Active HYDROCODONE-ACETAMINOPHEN 5-325 MG TABS 1 to 2 four times a day as needed for pain use until can be seen by specialist HYDROCODONE- ACETAMINOPHEN 02579691890 No Longer Active Vishal Hui MD Active PROAIR HFA 108 (90 BASE) MCG/ACT AERS 2 puffs four times a day as needed 2015 ALBUTEROL SULFATE 12652171875 No Longer Active Vishal Hui MD Active PREDNISONE 20 MG TABS 2 daily for 5 days then 1 daily for 5 days PREDNISONE 56630345508 No Longer Active Vishal Hui MD Active ZITHROMAX Z-EARNEST 250 MG TABS 2 today and then 1 daily for 4 days AZITHROMYCIN 54865311776 No Longer Active Vishal Hui MD Active DICLOFENAC POTASSIUM TABS Take 1 tablet twice a day (pt. is not sure of the dose.) DICLOFENAC POTASSIUM TABS 22615645450 No Longer Active Vishal Hui MD Active VERAPAMIL HCL ER 120 MG ORAL CR-TABS Take 1 tablet by mouth twice a day. VERAPAMIL HCL 87856903956 Active Vishal Hui MD Active FLAGYL 500 MG TAB 1 tablet by mouth bid METRONIDAZOLE 82369340007 No Longer Active Vishal Hui MD Active VALIUM 5 MG TAB Take 1-2 tablets daily DIAZEPAM 35389958079 No Longer Active Fabiola Johnson APRN Active METOPROLOL TARTRATE 25 MG ORAL TABS 1/2 tablet twice daily for heart rate and blood pressure METOPROLOL TARTRATE 16816953910 No Longer Active Fabiola Johnson APRN Active MIRALAX ORAL POWD 17GMS DAILY IN WATER POLYETHYLENE GLYCOL 3350 68951970836 Active TAMARA Casey Active MIRALAX PACK 1 po qd PRN Constipation POLYETHYLENE GLYCOL 3350 55369568682 No Longer Active Ahmet Carbajal MD Active MINIPRESS 2 MG CAPS 4 cap po at night PRAZOSIN HCL 25046157828 No Longer Active Ahmet Carbajal MD Active PIROXICAM 20 MG CAPS 1 cap po qd PRN Pain PIROXICAM 15367927493 No Longer Active Ahmet Carbajal MD Active TRAMADOL HCL 50 MG TABS 1-2 po TID PRN Pain TRAMADOL HCL 18143240972 No Longer Active Ahmet Carbajal MD Active METOPROLOL TARTRATE 50 MG TAB 1 po bid METOPROLOL TARTRATE 01713605317 No Longer Active Ahmet Carbajal MD Active ABILIFY 15 MG ORAL TABS 1 tab daily ARIPIPRAZOLE 31619350404 No Longer Active Ahmet Carbajal MD Active PROZAC 20 MG ORAL CAPS 1 tab daily FLUOXETINE HCL 17295740760 No Longer Active Ahmet Carbajal MD Active AMBIEN 5 MG ORAL TABS 1 tab at bedtime ZOLPIDEM TARTRATE 89040440196 No Longer Active Ahmet Carbajal MD Active PREDNISONE 20 MG TAB 2 tabs daily for 4 days, 1 tab daily for 4 days, 1/2 tab daily for 4 days PREDNISONE 46291321667 No Longer Active Ahmet Carbajal MD Active KEFLEX 500 MG CAP 1 po TID x 10 days CEPHALEXIN 39356638774 No Longer Active Vishal Hui MD Active SAPHRIS 5 MG SUBL 1 po bid ASENAPINE MALEATE 34399566262 No Longer Active Luigi Martínez APRN Active LATUDA 80 MG TABS Take one by mouth daily LURASIDONE HCL 05234037862 No Longer Active Luigi Martínez APRN Active AMLODIPINE BESYLATE 5 MG TABS 1 tablet by mouth daily AMLODIPINE BESYLATE 20340724466 No Longer Active Luigi Martínez APRN Active AMITRIPTYLINE HCL 100 MG TAB one at hs AMITRIPTYLINE HCL 30108598757 No Longer Active Vishal Hui MD Active TRAZODONE HCL 100 MG TAB take 1 at bedtime TRAZODONE HCL 86244218254 No Longer Active Vishal Hui MD Active VYVANSE 40 MG CAPS 1 daily, LISDEXAMFETAMINE DIMESYLATE 83373553921 No Longer Active Vishal Hui MD Active IBUPROFEN 600 MG TAB 1 po TID PRN IBUPROFEN 65255112251 No Longer Active Vishal Hui MD Active PROZAC 20 MG CAP Take one by mouth daily FLUOXETINE HCL 96914000779 No Longer Active Vishal Hui MD Active BACTRIM DS 800-160 MG TABS 1 pill by mouth twice daily SULFAMETHOXAZOLE-TRIMETHOPRIM 73906773906 No Longer Active Sahara Rodriguez MD PhD Active DIFLUCAN 150 MG TAB 1 tablet by mouth daily FLUCONAZOLE 00662454647 No Longer Active Vishal Hui MD Active TIZANIDINE HCL 4 MG TABS 1 po q6hr PRN Muscle Spasm/Back Pain TIZANIDINE HCL 80613337471 Active TAMARA Casey Active CLINDAMYCIN HCL 150 MG CAPS 1 four times a day CLINDAMYCIN HCL 23956061524 No Longer Active Neeraj Collins MD Active KEFLEX 500 MG ORAL CAPS 1 cap QID by mouth CEPHALEXIN 25324578027 No Longer Active Neeraj Collins MD Active DIFLUCAN 150 MG TABS 1 pill every other day x 2 doses FLUCONAZOLE 35424499318 No Longer Active Sahara Rodriguez MD PhD Active MELATONIN 3 MG CAPS 2 po q hs MELATONIN 14317866990 No Longer Active Sahara Rodriguez MD PhD Active MULTIVITAMINS CAPS Take one by mouth daily MULTIPLE VITAMIN 10797939713 No Longer Active Sahara Rodriguez MD PhD Active BACTRIM DS 800-160 MG TAB 1 tab by mouth twice daily TRIMETHOPRIM-SULFAMETHOXAZOLE 58395376209 No Longer Active Sahara Rodriguez MD PhD Active [facility] PROBIOTIC ORAL CHEW 2 daily po PROBIOTIC PRODUCT 94297522174 No Longer Active Sahara Rodriguez MD PhD Active BACTRIM DS 800-160 MG TABS 1 po BID x 7 days SULFAMETHOXAZOLE-TRIMETHOPRIM 79239169545 No Longer Active Vishal Hui MD Active CHANTIX STARTING MONTH EARNEST 0.5 MG X 11 & 1 MG X 42 TABS 0.5mg daily for 3 days , then 0.5mg BID for 4 days, then 1mg BID VARENICLINE TARTRATE 17249620298 No Longer Active TAMARA Gray Active VERAPAMIL HCL CR 120 MG TAB CR 1 po bid VERAPAMIL HCL 63813688620 No Longer Active Vishal Hui MD Active METOPROLOL SUCCINATE 50 MG TB24 1 tablet by mouth daily METOPROLOL SUCCINATE 92688773699 No Longer Active Vishal Hui MD Active SAPHRIS 10 MG SUBL 1 tab po bid ASENAPINE MALEATE 16063644555 No Longer Active Vishal Hui MD Active LISINOPRIL 20 MG TABS 1 tab po qd LISINOPRIL 03369579758 No Longer Active Vishal Hui MD Active LATUDA 20 MG TABS Take one by mouth daily LURASIDONE HCL 37833577592 No Longer Active Vishal Hui MD Active TRAZODONE HCL 50 MG TABS 1/2 tab po qd prn for anxiety TRAZODONE HCL 41997655389 No Longer Active Vishal Hui MD Active OMEPRAZOLE 20 MG TBEC 1 po q a.m. 30min prior to first food intake OMEPRAZOLE 30975357564 Active TAMARA Casey Active RANITIDINE HCL 150 MG CAPS 1 twice a day RANITIDINE HCL 43807535949 Active Lynda Xiao SPEECH LANGUAGE PATHOLOGIST Active LINZESS 290 MCG CAPS Take one by mouth daily LINACLOTIDE 73364141012 No Longer Active Vishal Hui MD Active SAPHRIS 5 MG SUBL 1 tab po qd ASENAPINE MALEATE 35498949382 No Longer Active Vishal Hui MD Active ZALEPLON 10 MG CAPS 1 cap po every other night ZALEPLON 41871182881 No Longer Active Vishal Hui MD Active LYRICA 50 MG CAPS 1 tab po TID PREGABALIN 93882124820 No Longer Active Vishal Hui MD Active LORATADINE 10 MG TABS 1 tab po qd LORATADINE 93380146200 No Longer Active Vishal Hui MD Active VERAPAMIL HCL ER 180 MG CR-TABS 1 tab po bid VERAPAMIL HCL 24888186002 No Longer Active Vishal Hui MD Active MIRALAX POWD 1 capfull once daily POLYETHYLENE GLYCOL 3350 58322836583 No Longer Active Vishal Hui MD Active PREDNISONE 20 MG TABS 1 tab po qd PREDNISONE 73912320574 No Longer Active Renzo Thornton DO Active LEVOFLOXACIN 500 MG TABS 1 tab po qd LEVOFLOXACIN 22042663460 No Longer Active Renzo Thornton DO Active BUSPIRONE HCL 15 MG TABS 1 tab po TID BUSPIRONE HCL 52410791652 No Longer Active Renzo Thornton DO Active BENZTROPINE MESYLATE 1 MG TABS 1 tab po qd BENZTROPINE MESYLATE 30440317225 No Longer Active Renzo Thornton DO Active ATENOLOL 25 MG TABS 1 tab po qd ATENOLOL 69905693259 No Longer Active Renzo Thornton DO Active ESCITALOPRAM OXALATE 20 MG TABS 1 tab po qd ESCITALOPRAM OXALATE 90815698343 No Longer Active Renzo Thornton DO Active ADVAIR DISKUS 250-50 MCG/DOSE AEPB 1 puff BID FLUTICASONE-SALMETEROL 60732312109 No Longer Active Renzo Thornton DO Active PREDNISONE 20 MG TAB 2 tabs daily for 3 days, 1 tab daily for 3 days, 1/2 tab daily for 2 days PREDNISONE 22876823857 No Longer Active Vishal Hui MD Active CEFDINIR 300 MG CAPS by mouth twice a day CEFDINIR 16185258842 No Longer Active Vishal Hui MD Active LANSOPRAZOLE 30 MG CPDR 1 cap po qd LANSOPRAZOLE 75211199025 No Longer Active Vishal Hui MD Active BACLOFEN 20 MG TABS 1 tab po tid BACLOFEN 69275748292 No Longer Active Vishal Hui MD Active ADVAIR DISKUS 250-50 MCG/DOSE AEPB 1 puff BID ADVAIR DISKUS 250-50 MCG/DOSE AEPB FLUTICASONE-SALMETEROL Inactive ESCITALOPRAM OXALATE 20 MG TABS 1 tab po qd ESCITALOPRAM OXALATE 20 MG TABS 750402 ESCITALOPRAM OXALATE Inactive ATENOLOL 25 MG TABS 1 tab po qd ATENOLOL 25 MG TABS 013246 ATENOLOL Inactive BENZTROPINE MESYLATE 1 MG TABS 1 tab po qd BENZTROPINE MESYLATE 1 MG TABS 132990 BENZTROPINE MESYLATE Inactive BUSPIRONE HCL 15 MG TABS 1 tab po TID BUSPIRONE HCL 15 MG TABS 678012 BUSPIRONE HCL Inactive LEVOFLOXACIN 500 MG TABS 1 tab po qd LEVOFLOXACIN 500 MG TABS 481544 LEVOFLOXACIN Inactive PREDNISONE 20 MG TABS 1 tab po qd PREDNISONE 20 MG TABS 269720 PREDNISONE Inactive MIRALAX POWD 1 capfull once daily MIRALAX [facility] 397967 POLYETHYLENE GLYCOL 3350 Inactive VERAPAMIL HCL ER 180 MG CR-TABS 1 tab po bid VERAPAMIL HCL ER 180 MG CR-TABS VERAPAMIL HCL Inactive LORATADINE 10 MG TABS 1 tab po qd LORATADINE 10 MG TABS 094889 LORATADINE Inactive LYRICA 50 MG CAPS 1 tab po TID LYRICA 50 MG CAPS PREGABALIN Inactive ZALEPLON 10 MG CAPS 1 cap po every other night ZALEPLON 10 MG CAPS 871029 ZALEPLON Inactive SAPHRIS 5 MG SUBL 1 tab po qd SAPHRIS 5 MG SUBL ASENAPINE MALEATE Inactive TRAZODONE HCL 50 MG TABS 1/2 tab po qd prn for anxiety TRAZODONE HCL 50 MG TABS 992263 TRAZODONE HCL Inactive LATUDA 20 MG TABS Take one by mouth daily LATUDA 20 MG TABS LURASIDONE HCL Inactive LISINOPRIL 20 MG TABS 1 tab po qd LISINOPRIL 20 MG TABS 783140 LISINOPRIL Inactive SAPHRIS 10 MG SUBL 1 [...] twice daily BACTRIM DS 800-160 MG TAB 295614 TRIMETHOPRIM-SULFAMETHOXAZOLE Inactive MULTIVITAMINS CAPS Take one by mouth daily MULTIVITAMINS CAPS MULTIPLE VITAMIN Inactive MELATONIN 3 MG CAPS 2 po q hs MELATONIN 3 MG CAPS 285337 MELATONIN Inactive KEFLEX 500 MG ORAL CAPS 1 cap QID by mouth KEFLEX 500 MG ORAL CAPS 848878 CEPHALEXIN Inactive CLINDAMYCIN HCL 150 MG CAPS 1 four times a day CLINDAMYCIN HCL 150 MG CAPS 578747 CLINDAMYCIN HCL Inactive DIFLUCAN 150 MG TAB 1 tablet by mouth daily DIFLUCAN 150 MG TAB 331083 FLUCONAZOLE Inactive PROZAC 20 MG CAP Take one by mouth daily PROZAC 20 MG CAP 072006 FLUOXETINE HCL Inactive IBUPROFEN 600 MG TAB 1 po TID PRN IBUPROFEN 600 MG TAB 696737 IBUPROFEN Inactive VYVANSE 40 MG CAPS 1 daily, VYVANSE 40 MG CAPS LISDEXAMFETAMINE DIMESYLATE Inactive TRAZODONE HCL 100 MG TAB take 1 at bedtime TRAZODONE HCL 100 MG TAB 367082 TRAZODONE HCL Inactive AMITRIPTYLINE HCL 100 MG TAB one at hs AMITRIPTYLINE HCL 100 MG TAB 680124 AMITRIPTYLINE HCL Inactive AMLODIPINE BESYLATE 5 MG TABS 1 tablet by mouth daily AMLODIPINE BESYLATE 5 MG TABS 187380 AMLODIPINE BESYLATE Inactive LATUDA 80 MG TABS Take one by mouth daily LATUDA 80 MG TABS LURASIDONE HCL Inactive SAPHRIS 5 MG SUBL 1 po bid SAPHRIS 5 MG SUBL ASENAPINE MALEATE Inactive PREDNISONE 20 MG TAB 2 tabs daily for 4 days, 1 tab daily for 4 days, 1/2 tab daily for 4 days PREDNISONE 20 MG TAB 078743 PREDNISONE Inactive AMBIEN 5 MG ORAL TABS 1 tab at bedtime AMBIEN 5 MG ORAL TABS 947873 ZOLPIDEM TARTRATE Inactive PROZAC 20 MG ORAL CAPS 1 tab daily PROZAC 20 MG ORAL CAPS 774793 FLUOXETINE HCL Inactive ABILIFY 15 MG ORAL TABS 1 tab daily ABILIFY 15 MG ORAL TABS 361053 ARIPIPRAZOLE Inactive METOPROLOL TARTRATE 50 MG TAB 1 po bid METOPROLOL TARTRATE 50 MG TAB 602103 METOPROLOL TARTRATE Inactive TRAMADOL HCL 50 MG TABS 1-2 po TID PRN Pain TRAMADOL HCL 50 MG TABS 081932 TRAMADOL HCL Inactive PIROXICAM 20 MG CAPS 1 cap po qd PRN Pain PIROXICAM 20 MG CAPS 502791 PIROXICAM Inactive MINIPRESS 2 MG CAPS 4 cap po at night MINIPRESS 2 MG CAPS 267261 PRAZOSIN HCL Inactive MIRALAX PACK 1 po qd PRN Constipation MIRALAX PACK 419585 POLYETHYLENE GLYCOL 3350 Inactive METOPROLOL TARTRATE 25 MG ORAL TABS 1/2 tablet twice daily for heart rate and blood pressure METOPROLOL TARTRATE 25 MG ORAL TABS 586914 METOPROLOL TARTRATE Inactive VALIUM 5 MG TAB Take 1-2 tablets daily VALIUM 5 MG TAB 448962 DIAZEPAM Inactive FLAGYL 500 MG TAB 1 tablet by mouth bid FLAGYL 500 MG TAB 175294 METRONIDAZOLE Inactive DICLOFENAC POTASSIUM TABS Take 1 tablet twice a day (pt. is not sure of the dose.) DICLOFENAC POTASSIUM TABS DICLOFENAC POTASSIUM TABS Inactive ZITHROMAX Z-EARNEST 250 MG TABS 2 today and then 1 daily for 4 days ZITHROMAX Z-EARNEST 250 MG TABS 6366380 AZITHROMYCIN Inactive PREDNISONE 20 MG TABS 2 daily for 5 days then 1 daily for 5 days PREDNISONE 20 MG TABS 744022 PREDNISONE Inactive PROAIR HFA 108 (90 BASE) MCG/ACT AERS 2 puffs four times a day as needed 2015 PROAIR HFA 108 (90 BASE) MCG/ACT AERS ALBUTEROL SULFATE Inactive HYDROCODONE-ACETAMINOPHEN 5-325 MG TABS 1 to 2 four times a day as needed for pain use until can be seen by specialist HYDROCODONE- ACETAMINOPHEN 5-325 MG TABS 278524 HYDROCODONE-ACETAMINOPHEN Inactive TESSALON PERLES 100 MG CAP 1 to 2 tablets by mouth 3 times daily as needed for cough TESSALON PERLES 100 MG CAP 331707 BENZONATATE Inactive CHANTIX STARTING MONTH EARNEST 0.5 [...] Pain 2015 DICLOFENAC SODIUM 50 MG TBEC 823297 DICLOFENAC SODIUM Inactive TOPAMAX 50 MG ORAL TABS 1 tab twice daily TOPAMAX 50 MG ORAL TABS 870423 TOPIRAMATE Inactive VIIBRYD 10 MG ORAL TABS Take 1 tablet once a day VIIBRYD 10 MG ORAL TABS VILAZODONE HCL Inactive LEVOFLOXACIN 500 MG ORAL TABS po daily LEVOFLOXACIN 500 MG ORAL TABS 202278 LEVOFLOXACIN Inactive METHYLPREDNISOLONE 4 MG ORAL TABS po daily METHYLPREDNISOLONE 4 MG ORAL TABS 528498 METHYLPREDNISOLONE Inactive OXYCODONE HCL ER 10 MG ORAL T12A 1/2 tab by mouth every 4 hours prn OXYCODONE HCL ER 10 MG ORAL T12A OXYCODONE HCL Inactive FLAGYL 500 MG TAB 1 tablet by mouth bid FLAGYL 500 MG TAB 421332 METRONIDAZOLE Inactive MONISTAT 7 COMBO PACK WOODROW 100 & 2 MG-% (9GM) VAG KIT 1 applicatorful per vagina q pm x 7 MONISTAT 7 COMBO PACK WOODROW 100 & 2 MG-% (9GM) VAG KIT MICONAZOLE NITRATE Inactive BACTRIM DS 800-160 MG TABS 1 twice a day BACTRIM DS 800-160 MG TABS 014015 SULFAMETHOXAZOLE-TRIMETHOPRIM Inactive TRAMADOL HCL 50 MG TABS 1/2-1 tab TID PRN TRAMADOL HCL 50 MG TABS 154146 TRAMADOL HCL Inactive ABILIFY MAINTENA 400 MG IM SUSR 400mg injection every 26 days ABILIFY MAINTENA 400 MG IM SUSR ARIPIPRAZOLE Inactive KLONOPIN 1 MG ORAL TABS 1 tab po TID KLONOPIN 1 MG ORAL TABS 636990 CLONAZEPAM Inactive ADVAIR DISKUS 250-50 MCG/DOSE INH AEPB 1 puff twice a day for asthma ADVAIR DISKUS 250-50 MCG/DOSE INH AEPB FLUTICASONE- SALMETEROL Inactive BENADRYL 25 MG CAP 4 po at bedtime for insomnia BENADRYL 25 MG CAP DIPHENHYDRAMINE HCL Inactive PREDNISONE 20 MG TABS 2 daily for 5 days then 1 daily for 5 days PREDNISONE 20 MG TABS 847503 PREDNISONE Inactive HYDROCODONE-ACETAMINOPHEN 5-325 MG ORAL TABS 1 tab two times a day HYDROCODONE-ACETAMINOPHEN 5-325 MG ORAL TABS 579065 HYDROCODONE-ACETAMINOPHEN Inactive ZITHROMAX Z-EARNEST 250 MG TABS 2 today and then 1 daily for 4 days ZITHROMAX Z-EARNEST 250 MG TABS 4571979 AZITHROMYCIN Inactive GUAIFENESIN-CODEINE 100-10 MG/5ML SYRP 5ml every 4 to 6 hours as needed for cough GUAIFENESIN-CODEINE 100-10 MG/5ML SYRP 714822 GUAIFENESIN-CODEINE Inactive HALOPERIDOL 10 MG ORAL TABS 1 tab q.d HALOPERIDOL 10 MG ORAL TABS 552631 HALOPERIDOL Inactive ASPIRIN 325 MG ORAL TABS 1 tab q.d ASPIRIN 325 MG ORAL TABS 698065 ASPIRIN Inactive FLUTICASONE PROPIONATE 50 MCG/ACT SUSP 2 sprays each nostril daily before bed. FLUTICASONE PROPIONATE 50 MCG/ACT SUSP 2163182 FLUTICASONE PROPIONATE Inactive ZOFRAN 4 MG TABS 1 po q6hr PRN Nausea ZOFRAN 4 MG TABS 852559 ONDANSETRON HCL Inactive KEFLEX 500 MG CAP 1 po qid KEFLEX 500 MG CAP 378911 CEPHALEXIN Inactive ACETAMINOPHEN-CODEINE 120-12 MG/5ML SOLN 5 ml by mouth every 4-6 hours if needed for cough ACETAMINOPHEN-CODEINE 120-12 MG/5ML SOLN 185567 ACETAMINOPHEN-CODEINE Inactive PREDNISONE 20 MG TAB 1 tablet daily x 4 days PREDNISONE 20 MG TAB 271209 PREDNISONE Inactive TROPICAMIDE 0.5 % OPHTH SOLN 1 drop PRN eye spasms TROPICAMIDE 0.5 % OPHTH SOLN 072882 TROPICAMIDE Inactive LEVAQUIN 500 MG TABS 1 daily for infection LEVAQUIN 500 MG TABS 164879 LEVOFLOXACIN Inactive PREDNISONE 10 MG TABS 2 daily for 5 days then 1 daily for 5 days PREDNISONE 10 MG TABS 311251 PREDNISONE Inactive EQ NICOTINE 21 MG/24HR TRANS [...] for cough TESSALON PERLES 100 MG CAPS 447852 BENZONATATE Inactive AMITIZA 8 MCG ORAL CAPS [...] twice a day MUPIROCIN 2 % OINT 622821 MUPIROCIN Inactive CEFDINIR 300 MG CAPS by mouth twice a day CEFDINIR 300 MG CAPS 170544 CEFDINIR Inactive PREDNISONE 20 MG TAB 2 tabs daily for 3 days, 1 tab daily for 3 days, 1/2 tab daily for 2 days PREDNISONE 20 MG TAB 429509 PREDNISONE Inactive BACTRIM DS 800-160 MG TABS [...] x 10 days KEFLEX 500 MG CAP 426480 CEPHALEXIN Inactive Advance Directives Directive Description Start [...] % 11.0-15.0 platelet count 443 THOUSAND/UL 10*3/mm3 834-291 3078/03/01 mean platelet volume 8.2 fL 7.5-12.5 leukocyte [...] % 11.0-15.0 platelet count 349 THOUSAND/UL 10*3/mm3 [phone]/04/12 mean platelet volume 8.4 fL 7.5-12.5 Lab [...] 369 10^3/MM^3 10*3/mm3 142-424 Lab Report: Chlamydia/GC APTIMA/23292 - Lab chlamydia DNA probe NOT DETECTED NOT DETECTED Lab Report: Chlamydia/GC APTIMA/93808 - Microbiology Neisseria gonorrhoeae DNA probe NOT DETECTED NOT DETECTED Lab Report: Chlamydia/GC APTIMA/57839, Urinalysis, Complete, with Reflex ... - Lab chlamydia DNA probe NOT DETECTED NOT DETECTED Lab Report: Chlamydia/GC APTIMA/84246, Urinalysis, Complete, with Reflex ... - Microbiology Neisseria gonorrhoeae DNA probe NOT DETECTED NOT DETECTED Lab Report: Chlamydia/GC APTIMA/67782, Urinalysis, Complete, with Reflex ... - Urinalysis microalbumin/total urine volume 2 mg/L Units converted. See lab report for original value. microalbumin/creatinine ratio, urine 9 MCG/MG CREAT mg/L <30 Lab Report: Comp. Metabolic Panel - Chemistry sodium, serum 140 mmol/L [id number] 0447/08/08 carbon dioxide, venous blood 33.7 mmol/L 21.0-32.0 potassium, serum 5.0 mmol/L 3.5-5.2 chloride, serum 103 mmol/L 98-107 blood glucose 80 mg/dL 65-110 urea nitrogen, blood 13 mg/dL 7-18 creatinine, serum 0.88 mg/dL 0.55-1.30 alanine aminotransferase (SGPT), serum 54 U/L 12-78 aspartate aminotransferase (SGOT), serum 29 U/L 15-37 calcium, serum 9.7 mg/dL 8.5-10.1 bilirubin, serum, total 0.30 mg/dL 0.00-1.00 sodium, serum 140 mmol/L [id number] 0145/06/28 carbon dioxide, venous blood 23.8 mmol/L 21.0-32.0 [...] 5.0-8.5 Encounters Code Encounter Date Provider Facility CPT-17331 Level 3 Est. Patient 15:55:20 [facility] [place] [facility] Level 4 Est. Patient 10:49:34 CDT Suzan [facility] CPT-49160 Level 3 Est. Patient 10:00:25 [facility] [place] [facility]-44775 Level 3 Est. Patient 10:29:30 CD[facility] [place] [facility]PT-92360 Level 3 Est. Patient 11:04:38 CDT Renzo Thornton [facility] CPT-76380 Level 3 Est. Patient 11:15:58 ACTUARY MANAGER Renzo Thornton [facility] CPT-66919 Level 3 Est. Patient 15:28:23 ACTUARY MANAGER Suzan Boo [facility] CPT-36701 Level 4 Est. Patient 10:20:54 ACTUARY MANAGER Suzan Boo [facility] CPT-35126 Level 3 Est. Patient 11:47:37 ACTUARY MANAGER Ahmet Carbajal MD [facility] CPT-81376 Level 3 Est. Patient 10:40:11 ACTUARY MANAGER Ahmet Carbajal MD [facility] CPT-08905 Level 3 Est. Patient 15:07:06 ACTUARY MANAGER Neeraj Collins MD [facility] CPT-39778 Level 4 Est. Patient 14:45:00 ACTUARY MANAGER Ahmet Carbajal MD [facility] CPT-55570 Level 3 Est. Patient 13:59:59 CDT Luigi Martínez [facility] CPT-74050 Level 3 Est. Patient 18:18:53 CDT Neeraj Collins MD [facility] CPT-11171 Level 3 Est. Patient 15:50:44 CDT Vishal Hui MD [facility] CPT-06498 Level 3 Est. Patient 11:36:17 CDT Ahmet Carbajal MD [facility] CPT-78412 Level 3 Est. Patient 13:29:16 CDT Vishal Hui MD [facility] CPT-34879 Level 3 Est. Patient 14:27:52 CDT Neeraj Collins MD [facility] CPT-55643 Level 3 Est. Patient 08:56:03 CDT Luigi Martínez [facility] CPT-03223 Level 4 Est. Patient 12:11:48 CDT Fabiola Johnson [facility] CPT-74455 Level 3 New Patient 16:53:37 CDT Albert Caldera MD [facility] CPT-85372 Level 3 Est. Patient 11:25:49 CDT Renzo Thornton DO [facility] CPT-00157 Level 3 Est. Patient 15:22:01 CDT Ahmet Carbajal MD [facility] CPT-65102 Level 4 Est. Patient 09:00:51 ACTUARY MANAGER Vishal Hui MD [facility] CPT-22542 Level 3 Est. Patient 11:37:33 ACTUARY MANAGER Vishal Hui MD [facility] CPT-86321 Level 3 Est. Patient 08:41:09 ACTUARY MANAGER Vishal Hui MD [facility] CPT-18363 Level 4 Est. Patient 10:19:35 ACTUARY MANAGER Vishal Hui MD [facility] CPT-84972 Level 3 Est. Patient 13:35:45 CDT Vishal Hui MD [facility] CPT-45756 Level 4 Est. Patient 10:08:37 CDT Vishal Hui MD [facility] CPT-93768 Level 3 Est. Patient 11:22:10 CDT Vishal Hui MD [facility] CPT-78803 Level 3 Est. Patient 11:03:32 CDT Sahara Rodriguez MD [facility] CPT-75930 Level 3 Est. Patient 09:41:35 CDT Vishal Hui MD [facility]-73013 Level 3 Est. Patient 12:00:41 CDT Neeraj Collins MD [facility] CPT-42253 Level 3 Est. Patient 09:16:24 CDT Vishal Hui MD [facility] CPT-91102 Level 4 Est. Patient 13:59:09 CDT Neeraj Collins MD [facility]-69794 Level 3 Est. Patient 15:19:43 CDT Renzo Thornton DO [facility] CPT-22922 Level 3 Est. Patient 18:10:26 CDT Sahara Rodriguez MD [facility]-50796 Level 3 Est. Patient 14:49:50 CDT Vishal Hui MD [facility] CPT-74067 Level 4 Est. Patient 18:41:46 CDT Neeraj Collins MD [facility]-98755 Level 4 Est. Patient 09:18:38 ACTUARY MANAGER Vishal Hui MD [facility] CPT-17176 Level 3 Est. Patient 14:43:55 ACTUARY MANAGER Vishal Hui MD [facility] CPT-91162 Level 3 Est. Patient 15:26:33 ACTUARY MANAGER Sahara Rodriguze MD [facility] CPT-99053 Level 3 Est. Patient 10:32:14 ACTUARY MANAGER Vishal Hui MD [facility]-02834 Level 3 Est. Patient 15:12:52 ACTUARY MANAGER Vishal Hui MD [facility] CPT-19652 Level 4 Est. Patient 09:19:27 CDT Vishal Hui MD [facility] CPT-92373 Level 3 Est. Patient 15:53:00 CDT Renzo Thornton [facility] CPT-30559 Level 3 Est. Patient 15:50:30 CDT Renzo Thornton [facility] CPT-59895 Level 3 Est. Patient 16:55:24 CDT Vishal Hui MD [facility] Procedures Code Procedure Name Date Entry Date Standard Description CPT-16317 EKG Trac and Interp - XRAY USE ONLY 15:59:30 CDT 09/13 CPT-07121 Chest 1V Frontal - XRAY USE ONLY 15:59:30 CDT CPT-01027 Venipuncture Draw Fee 15:44:02 CDT CPT-22876 Venipuncture Draw Fee 08:41:12 CDT CPT-27790 Abd compl w upright - XRAY USE ONLY 10:27:59 CDT 06/28 CPT-17336 Smoking Cessation counseling 11:15:58 ACTUARY MANAGER CPT-G0439 [facility] Annual Wellness Exam 09:30:58 ACTUARY MANAGER CPT-14398 TSH - LAB USE ONLY 08:50:26 ACTUARY MANAGER CPT-51498 CBC - LAB USE ONLY 08:50:26 ACTUARY MANAGER CPT-33125 Venipuncture Draw Fee 08:50:26 ACTUARY MANAGER CPT-01997 Abx/Therapy Injection 17:34:30 ACTUARY MANAGER CPT-17390 Nexplanon Removal with Reinsertion 14:09:32 CDT CPT-J7307 Nexplanon (Implant) 14:09:32 CDT CPT-OV Office Visit 14:09:32 CDT CPT-20585 UA w micro - LAB USE ONLY 16:21:13 CDT CPT-68502 Wet Mount - LAB USE ONLY 16:21:13 CDT CPT-17209 First Vx - Ix admin for Medicare patients 14:37:47 CDT CPT-01683 Fluzone Preservative Free Intramuscular Suspension 14:37 :47 CDT CPT-19909 Abx/Therapy Injection 13:54:22 CDT CPT-72904 Abx/Therapy Injection 08:47:09 CDT CPT-80157 Abx/Therapy Injection 13:29:56 CDT CPT-03712 Abx/Therapy Injection 08:36:16 CDT CPT-20165 [place] - LAB USE ONLY 17:44:58 CDT CPT-62985 UA w micro - LAB USE ONLY 17:44:58 CDT CPT-07443 CMP - LAB USE ONLY 17:44:58 CDT CPT-17809 Venipuncture Draw Fee 17:44:58 CDT CPT-45947 Cervical Min 4V - XRAY USE ONLY 09:01:40 CDT CPT-63656 Chest 2V Frontal and Lat - XRAY USE ONLY 11:06:31 CDT CPT-82885 EKG Trac and Interp - XRAY USE ONLY 11:31:43 CDT 08/26 CPT-J3420 Vitamin B12 1000mcg (Cyanocobalamin) 08:10:26 ACTUARY MANAGER 04/12 CPT-19334 Abx/Therapy Injection 08:10:26 ACTUARY MANAGER CPT-G0438 Initial Annual Wellness Exam 19:01:01 ACTUARY MANAGER CPT-J3420 Vitamin B12 1000mcg (Cyanocobalamin) 16:57:46 CDT 08/14 CPT-29801 Recombivax HB Injection Suspension 5 MCG/0.5ML 08:37:50 ACTUARY MANAGER CPT-29799 Immunization Single Admin 08:37:50 ACTUARY MANAGER CPT-J3420 Vitamin B12 1000mcg (Cyanocobalamin) 08:32:16 ACTUARY MANAGER 03/11 CPT-74785 Abx/Therapy Injection 08:32:16 ACTUARY MANAGER CPT-82825 Chest 2V Frontal and Lat 11:46:38 ACTUARY MANAGER CPT-18864 Venipuncture Draw Fee 09:12:45 ACTUARY MANAGER CPT-J3420 Vitamin B12 1000mcg (Cyanocobalamin) 08:50:15 ACTUARY MANAGER 02/08 CPT-03366 Abx/Therapy Injection 08:50:15 ACTUARY MANAGER CPT-Cryo Cryotherapy 10:19:35 ACTUARY MANAGER CPT-000 Give Appropriate Flu Vaccine 09:22:16 CDT CPT-J3420 Vitamin B12 1000mcg (Cyanocobalamin) 19:08:57 CDT 01/11 CPT-13930 Abx/Therapy Injection 19:08:57 CDT CPT-J3420 Vitamin B12 1000mcg (Cyanocobalamin) 08:19:08 CDT 12/11 CPT-36023 Abx/Therapy Injection 08:19:08 CDT CPT-J3420 Vitamin B12 1000mcg (Cyanocobalamin) 14:48:00 CDT 11/09 CPT-39406 Abx/Therapy Injection 14:47:59 CDT CPT-J3420 Vitamin B12 1000mcg (Cyanocobalamin) 08:34:04 CDT 10/09 CPT-69701 Abx/Therapy Injection 08:34:04 CDT CPT-J3420 Vitamin B12 1000mcg (Cyanocobalamin) 09:18:52 CDT 09/11 CPT-25390 Abx/Therapy Injection 09:18:52 CDT CPT-J3420 Vitamin B12 1000mcg (Cyanocobalamin) 08:35:44 CDT 09/04 CPT-00111 Abx/Therapy Injection 08:35:44 CDT CPT-20349 Immunization Single Admin 11:07:16 CDT CPT-27707 Hepatitis B adult IM 11:07:16 CDT CPT-J3420 Vitamin B12 1000mcg (Cyanocobalamin) 11:00:49 CDT 08/28 CPT-J1040 Depo Medrol 80 mg (Methyl Prednisolone Acetate) 11:00: 49 CDT CPT-39829 Abx/Therapy Injection 11:00:49 CDT CPT-J1040 Depo Medrol 80 mg (Methyl Prednisolone Acetate) 09:16: 23 CDT CPT-J3420 Vitamin B12 1000mcg (Cyanocobalamin) 08:27:05 CDT 08/20 CPT-90312 Abx/Therapy Injection 08:27:05 CDT CPT-97799 Recombivax HB Injection Suspension 5 MCG/0.5ML 10:00:41 CDT CPT-57007 Administration single or combination vaccine inc oral 10 :00:41 CDT CPT-78587 Sono transvag pelvis non OB uterus ovaries cervix 16:36: 57 CDT CPT-18152 LS spine comp w obliq 09:50:55 ACTUARY MANAGER CPT-98970 Abd compl w upright 09:50:55 ACTUARY MANAGER CPT-J1100 Decadron 4mg (Dexamethasone) 15:51:24 ACTUARY MANAGER CPT-J1030 Depo Medrol 40 mg (Methyl Prednisolone Acetate) 15:51: 24 ACTUARY MANAGER CPT-46065 Abx/Therapy Injection 15:51:24 ACTUARY MANAGER CPT-J1100 Decadron 4mg (Dexamethasone) 15:26:33 ACTUARY MANAGER CPT-J1030 Depo Medrol 40 mg (Methyl Prednisolone Acetate) 15:26: 33 ACTUARY MANAGER CPT-37055 Sono retroperitoneal complete kidneys and bladder 17:15: 30 CDT CPT-20484 Abd compl w upright 16:09:25 CDT CPT-J1100 Decadron 8mg (Dexamethasone) 17:07:57 CDT CPT-51943 Abx/Therapy Injection 17:07:57 CDT CPT-J1100 Decadron 8mg (Dexamethasone) 16:55:24 CDT CPT-69280 Chest 2V Frontal and Lat 16:32:44 CDT
--- OUTSIDE RECORDS SUMMARY | 2016-11-04 17:20 | XMS REPORT | Clinical Summary ---
Author Author Admin, E Organization [facility] [employer] Address Unknown Phone Unavailable Allergies, Adverse [...] facility Sinus tachycardia 427.89 Resolved Suzan Rajeev [employer] Other specified cardiac dysrhythmias Schizoaffective disorder 295.70 [...] Active Ahmet Carbajal MD Generalized anxiety disorder [employer] well woman exam V72.31 Active Suzan Boo [...] Health screening ICD-V70.0 Inactive Suzan Boo [employer] Sinus tachycardia ICD-427.89 Inactive Suzan Boo [employer] Smoker/tobacco use disorder-smoking cessation discussed ICD-305.1 Inactive [...] SOLN 30mL oral daily for IBS-C LACTULOSE 63844373162 Active Suzan Boo APRN Active TESSALON PERLES 100 MG CAPS 1 three times a day as needed for cough BENZONATATE 27621463441 No Longer Active Suzan Boo APRN Active BACTRIM DS 800-160 MG TABS 1 twice a day SULFAMETHOXAZOLE-TRIMETHOPRIM 76124598900 No Longer Active Suzan Boo APRN Active DIFLUCAN 150 MG TABS 1 by mouth for yeast FLUCONAZOLE 39690235774 No Longer Active Suzan Boo APRN Active EQ NICOTINE 21 MG/24HR TRANS PT24 Apply daily to stop smoking NICOTINE 16148728899 No Longer Active Suzan Boo APRN Active PREDNISONE 10 MG TABS 2 daily for 5 days then 1 daily for 5 days PREDNISONE 89992270458 No Longer Active Suzan Boo APRN Active LEVAQUIN 500 MG TABS 1 daily for infection LEVOFLOXACIN 14946026123 No Longer Active Suzan Boo APRN Active TROPICAMIDE 0.5 % OPHTH SOLN 1 drop PRN eye spasms TROPICAMIDE 36492734262 No Longer Active Suzan Boo APRN Active PREDNISONE 20 MG TAB 1 tablet daily x 4 days PREDNISONE 75322529639 No Longer Active Suzan Boo APRN Active ACETAMINOPHEN-CODEINE 120-12 MG/5ML SOLN 5 ml by mouth every 4-6 hours if needed for cough ACETAMINOPHEN-CODEINE 66125646446 No Longer Active Suzna Boo APRN Active KEFLEX 500 MG CAP 1 po qid CEPHALEXIN 82629310210 No Longer Active Suzan Boo APRN Active FLOVENT HFA 110 MCG/ACT AERO 2 puffs inhaled b.i.d. FLUTICASONE PROPIONATE HFA 50131857584 Active Renzo Thornton DO Active RISPERDAL 4 MG ORAL TABS 1 tab at bedtime RISPERIDONE 45084281498 Active Samantha Rothman RMA Active ZOFRAN 4 MG TABS 1 po q6hr PRN Nausea ONDANSETRON HCL No Longer Active Suzan Boo APRN Active FLUTICASONE PROPIONATE 50 MCG/ACT SUSP 2 sprays each nostril daily before bed. FLUTICASONE PROPIONATE 85591242952 No Longer Active Suzan Boo APRN Active ASPIRIN 325 MG ORAL TABS 1 tab q.d ASPIRIN 22909097395 No Longer Active Suzan Boo APRN Active HALOPERIDOL 10 MG ORAL TABS 1 tab q.d HALOPERIDOL 35803979196 No Longer Active Suzan Boo APRN Active GUAIFENESIN-CODEINE 100-10 MG/5ML SYRP 5ml every 4 to 6 hours as needed for cough GUAIFENESIN-CODEINE 89062312687 No Longer Active Suzan Boo APRN Active ZITHROMAX Z-EARNEST 250 MG TABS 2 today and then 1 daily for 4 days AZITHROMYCIN 78140508862 No Longer Active Suzan Boo APRN Active CLONAZEPAM 1 MG ORAL TABS 1 twice a day and an additional 1 tablet every other day as needed for pseudoseizures or anxiety CLONAZEPAM 29593173466 Active Ahmet Carbajal MD Active HYDROCODONE-ACETAMINOPHEN 5-325 MG ORAL TABS 1 tab two times a day HYDROCODONE-ACETAMINOPHEN 23763420999 No Longer Active Ahmet Carbajal MD Active LAMICTAL 100 MG ORAL TABS 1 tab 2 times qd. LAMOTRIGINE 86234725537 Active Ahmet Carbajal MD Active PREDNISONE 20 MG TABS 2 daily for 5 days then 1 daily for 5 days PREDNISONE 91268469399 No Longer Active Ahmet Carbajal MD Active FLUTICASONE PROPIONATE 50 MCG/ACT SUSP 1 to 2 sprays each nostril daily for allergies FLUTICASONE PROPIONATE 47331913047 Active Tila Valenzuela Active BENADRYL 25 MG CAP 4 po at bedtime for insomnia DIPHENHYDRAMINE HCL 93353492771 No Longer Active Ahmet Carbajal MD Active ADVAIR DISKUS 250-50 MCG/DOSE INH AEPB 1 puff twice a day for asthma FLUTICASONE-SALMETEROL 46490735035 No Longer Active Ahmet Carbajal MD Active KLONOPIN 1 MG ORAL TABS 1 tab po TID CLONAZEPAM 72107103397 No Longer Active Ahmet Carbajal MD Active ABILIFY MAINTENA 400 MG IM SUSR 400mg injection every 26 days ARIPIPRAZOLE 07963250320 No Longer Active Ahmet Carbajal MD Active TRAMADOL HCL 50 MG TABS 1/2-1 tab TID PRN TRAMADOL HCL 92520792824 No Longer Active Ahmet Carbajal MD Active BACTRIM DS 800-160 MG TABS 1 twice a day SULFAMETHOXAZOLE- TRIMETHOPRIM 59518653785 No Longer Active Ahmet Carbajal MD Active PROAIR HFA 108 (90 BASE) MCG/ACT AERS 2 puffs four times a day as needed 2015 ALBUTEROL SULFATE 27763599811 Active Ahmet Carbajal MD Active MONISTAT 7 COMBO PACK WOODROW 100 & 2 MG-% (9GM) VAG KIT 1 applicatorful per vagina q pm x 7 MICONAZOLE NITRATE 46315440767 No Longer Active Ahmet Carbajal MD Active FLAGYL 500 MG TAB 1 tablet by mouth bid METRONIDAZOLE 66752531319 No Longer Active Ahmet Carbajal MD Active OXYCODONE HCL ER 10 MG ORAL T12A 1/2 tab by mouth every 4 hours prn OXYCODONE HCL 97506013570 No Longer Active Ahmet Carbajal MD Active METHYLPREDNISOLONE 4 MG ORAL TABS po daily METHYLPREDNISOLONE 80182841091 No Longer Active Ahmet Carbajal MD Active LEVOFLOXACIN 500 MG ORAL TABS po daily LEVOFLOXACIN 95305429289 No Longer Active Ahmet Carbajal MD Active VIIBRYD 10 MG ORAL TABS Take 1 tablet once a day VILAZODONE HCL 85615325128 No Longer Active Ahemt Carbajal MD Active TOPAMAX 50 MG ORAL TABS 1 tab twice daily TOPIRAMATE 07415853189 No Longer Active Ahmet Carbajal MD Active DICLOFENAC SODIUM 50 MG TBEC 1 tablet by mouth four times daily PRN Pain 2015 DICLOFENAC SODIUM 91884793348 No Longer Active Ahmet Carbajal MD Active ADZENYS XR-ODT 6.3 MG ORAL TBED 1 tab po daily for ADHD AMPHETAMINE 36711669111 No Longer Active Ahmet aCrbajal MD Active CHANTIX 1 MG TABS 1 twice a day to help quit smoking VARENICLINE TARTRATE 25217744867 No Longer Active Dipika Burgos MD Active CHANTIX STARTING MONTH EARNEST 0.5 MG X 11 & 1 MG X 42 TABS take as directed 2015 VARENICLINE TARTRATE 12582088478 No Longer Active Dipika Burgos MD Active TESSALON PERLES 100 MG CAP 1 to 2 tablets by mouth 3 times daily as needed for cough BENZONATATE 42258511642 No Longer Active Luigi Martínez APRN Active IMITREX 50 MG ORAL TABS 0.5 po x 1 PRN Headache. May repeat dose x 1 in 2 hours if needed SUMATRIPTAN SUCCINATE 76794529320 Active Ahmet Carbajal MD Active HYDROCODONE-ACETAMINOPHEN 5-325 MG TABS 1 to 2 four times a day as needed for pain use until can be seen by specialist HYDROCODONE- ACETAMINOPHEN 29442787887 No Longer Active Vishal Hui MD Active PROAIR HFA 108 (90 BASE) MCG/ACT AERS 2 puffs four times a day as needed 2015 ALBUTEROL SULFATE 30726575670 No Longer Active Vishal Hui MD Active PREDNISONE 20 MG TABS 2 daily for 5 days then 1 daily for 5 days PREDNISONE 17207078806 No Longer Active iVshal Hui MD Active ZITHROMAX Z-EARNEST 250 MG TABS 2 today and then 1 daily for 4 days AZITHROMYCIN 10739834908 No Longer Active Vishal Hui MD Active DICLOFENAC POTASSIUM TABS Take 1 tablet twice a day (pt. is not sure of the dose.) DICLOFENAC POTASSIUM TABS 86903332911 No Longer Active Vishal Hui MD Active VERAPAMIL HCL ER 120 MG ORAL CR-TABS Take 1 tablet by mouth twice a day. VERAPAMIL HCL 59532310801 Active Vishal Hui MD Active FLAGYL 500 MG TAB 1 tablet by mouth bid METRONIDAZOLE 86557750418 No Longer Active Vishal Hui MD Active VALIUM 5 MG TAB Take 1-2 tablets daily DIAZEPAM 35149706268 No Longer Active Fabiola Johnson APRN Active METOPROLOL TARTRATE 25 MG ORAL TABS 1/2 tablet twice daily for heart rate and blood pressure METOPROLOL TARTRATE 98766856000 No Longer Active Fabiola Johnson APRN Active MIRALAX ORAL POWD 17GMS DAILY IN WATER POLYETHYLENE GLYCOL 3350 67120328578 Active TAMARA Casey Active MIRALAX PACK 1 po qd PRN Constipation POLYETHYLENE GLYCOL 3350 61581373769 No Longer Active Ahmet Carbajal MD Active MINIPRESS 2 MG CAPS 4 cap po at night PRAZOSIN HCL 22582580185 No Longer Active Ahmet Carbajal MD Active PIROXICAM 20 MG CAPS 1 cap po qd PRN Pain PIROXICAM 18021202334 No Longer Active Ahmet Carbajal MD Active TRAMADOL HCL 50 MG TABS 1-2 po TID PRN Pain TRAMADOL HCL 57903486090 No Longer Active Ahmet Carbajal MD Active METOPROLOL TARTRATE 50 MG TAB 1 po bid METOPROLOL TARTRATE 07931370726 No Longer Active Ahmet Carbajal MD Active ABILIFY 15 MG ORAL TABS 1 tab daily ARIPIPRAZOLE 03658155537 No Longer Active Ahmet Carbajal MD Active PROZAC 20 MG ORAL CAPS 1 tab daily FLUOXETINE HCL 05659794153 No Longer Active Ahmet Carbajal MD Active AMBIEN 5 MG ORAL TABS 1 tab at bedtime ZOLPIDEM TARTRATE 88595841821 No Longer Active Ahmet Carbajal MD Active PREDNISONE 20 MG TAB 2 tabs daily for 4 days, 1 tab daily for 4 days, 1/2 tab daily for 4 days PREDNISONE 12027825225 No Longer Active Ahmet Carbajal MD Active KEFLEX 500 MG CAP 1 po TID x 10 days CEPHALEXIN 81433090566 No Longer Active Vishal Hui MD Active SAPHRIS 5 MG SUBL 1 po bid ASENAPINE MALEATE 72727234174 No Longer Active Jillina Fralebron [employer] Active LATUDA 80 MG TABS Take one by mouth daily LURASIDONE HCL 39532940609 No Longer Active Jillina Frazell [employer] Active AMLODIPINE BESYLATE 5 MG TABS 1 tablet by mouth daily AMLODIPINE BESYLATE 79629172427 No Longer Active Jillina Mauricio [employer] Active AMITRIPTYLINE HCL 100 MG TAB one at hs AMITRIPTYLINE HCL 09851114135 No Longer Active Vishal Hui MD Active TRAZODONE HCL 100 MG TAB take 1 at bedtime TRAZODONE HCL 59198543914 No Longer Active Vishal Hui MD Active VYVANSE 40 MG CAPS 1 daily, LISDEXAMFETAMINE DIMESYLATE 96979373206 No Longer Active Vishal Hui MD Active IBUPROFEN 600 MG TAB 1 po TID PRN IBUPROFEN 00836151711 No Longer Active Vishal Hui MD Active PROZAC 20 MG CAP Take one by mouth daily FLUOXETINE HCL 94421900033 No Longer Active Vishal Hui MD Active BACTRIM DS 800-160 MG TABS 1 pill by mouth twice daily SULFAMETHOXAZOLE-TRIMETHOPRIM 49797708991 No Longer Active Sahara Rodriguez MD PhD Active DIFLUCAN 150 MG TAB 1 tablet by mouth daily FLUCONAZOLE 15325552856 No Longer Active Vishal Hui MD Active TIZANIDINE HCL 4 MG TABS 1 po q6hr PRN Muscle Spasm/Back Pain TIZANIDINE HCL 43078243278 Active Vishal Hui MD Active CLINDAMYCIN HCL 150 MG CAPS 1 four times a day CLINDAMYCIN HCL 04720533956 No Longer Active Neeraj Collins MD Active KEFLEX 500 MG ORAL CAPS 1 cap QID by mouth CEPHALEXIN 87465027124 No Longer Active Neeraj Collins MD Active DIFLUCAN 150 MG TABS 1 pill every other day x 2 doses FLUCONAZOLE 84551572425 No Longer Active Sahara Rodriguez MD PhD Active MELATONIN 3 MG CAPS 2 po q hs MELATONIN 13366735197 No Longer Active Sahara Rodriguez MD PhD Active MULTIVITAMINS CAPS Take one by mouth daily MULTIPLE VITAMIN 39934930674 No Longer Active Sahara Rodriguez MD PhD Active BACTRIM DS 800-160 MG TAB 1 tab by mouth twice daily TRIMETHOPRIM-SULFAMETHOXAZOLE 49807489776 No Longer Active Sahara Rodriguez MD PhD Active [facility] PROBIOTIC ORAL CHEW 2 daily po PROBIOTIC PRODUCT 35345223680 No Longer Active Sahara Rodriguez MD PhD Active BACTRIM DS 800-160 MG TABS 1 po BID x 7 days SULFAMETHOXAZOLE-TRIMETHOPRIM 53540536470 No Longer Active Vishal Hui MD Active CHANTIX STARTING MONTH EARNEST 0.5 MG X 11 & 1 MG X 42 TABS 0.5mg daily for 3 days , then 0.5mg BID for 4 days, then 1mg BID VARENICLINE TARTRATE 93848195346 No Longer Active TAMARA Gray Active VERAPAMIL HCL CR 120 MG TAB CR 1 po bid VERAPAMIL HCL 86704262410 No Longer Active Vishal Hui MD Active METOPROLOL SUCCINATE 50 MG TB24 1 tablet by mouth daily METOPROLOL SUCCINATE 59694791752 No Longer Active Vishal Hui MD Active SAPHRIS 10 MG SUBL 1 tab po bid ASENAPINE MALEATE 30383911676 No Longer Active Vishal Hui MD Active LISINOPRIL 20 MG TABS 1 tab po qd LISINOPRIL 69424205904 No Longer Active Vishal Hui MD Active LATUDA 20 MG TABS Take one by mouth daily LURASIDONE HCL 28625091292 No Longer Active Vishal Hui MD Active TRAZODONE HCL 50 MG TABS 1/2 tab po qd prn for anxiety TRAZODONE HCL 27181035727 No Longer Active Vishal Hui MD Active OMEPRAZOLE 20 MG TBEC 1 po q a.m. 30min prior to first food intake OMEPRAZOLE 22664179248 Active TAMARA Casey Active RANITIDINE HCL 150 MG CAPS 1 twice a day RANITIDINE HCL 92107034493 Active Jillina Frazell [employer] Active LINZESS 290 MCG CAPS Take one by mouth daily LINACLOTIDE 79471988321 No Longer Active Vishal Hui MD Active SAPHRIS 5 MG SUBL 1 tab po qd ASENAPINE MALEATE 26806324460 No Longer Active Vishal Hui MD Active ZALEPLON 10 MG CAPS 1 cap po every other night ZALEPLON 38580258062 No Longer Active Vishal Hui MD Active LYRICA 50 MG CAPS 1 tab po TID PREGABALIN 85411860713 No Longer Active Vishal Hui MD Active LORATADINE 10 MG TABS 1 tab po qd LORATADINE 59528801805 No Longer Active Vishal Hui MD Active VERAPAMIL HCL ER 180 MG CR-TABS 1 tab po bid VERAPAMIL HCL 85278616069 No Longer Active Vishal Hui MD Active MIRALAX POWD 1 capfull once daily POLYETHYLENE GLYCOL 3350 11803881963 No Longer Active Vishal Hui MD Active PREDNISONE 20 MG TABS 1 tab po qd PREDNISONE 30324971134 No Longer Active Renzo Thornton DO Active LEVOFLOXACIN 500 MG TABS 1 tab po qd LEVOFLOXACIN 94236515249 No Longer Active Renzo Thornton DO Active BUSPIRONE HCL 15 MG TABS 1 tab po TID BUSPIRONE HCL 05916486454 No Longer Active Renzo Thornton DO Active BENZTROPINE MESYLATE 1 MG TABS 1 tab po qd BENZTROPINE MESYLATE 68508711843 No Longer Active Renzo Thornton DO Active ATENOLOL 25 MG TABS 1 tab po qd ATENOLOL 45370003739 No Longer Active Renzo Thornton DO Active ESCITALOPRAM OXALATE 20 MG TABS 1 tab po qd ESCITALOPRAM OXALATE 30013298061 No Longer Active Renzo Thornton DO Active ADVAIR DISKUS 250-50 MCG/DOSE AEPB 1 puff BID FLUTICASONE-SALMETEROL 87728133546 No Longer Active Renzo Thornton DO Active PREDNISONE 20 MG TAB 2 tabs daily for 3 days, 1 tab daily for 3 days, 1/2 tab daily for 2 days PREDNISONE 44408707821 No Longer Active Vishal Hui MD Active CEFDINIR 300 MG CAPS by mouth twice a day CEFDINIR 02828602602 No Longer Active Vishal Hui MD Active LANSOPRAZOLE 30 MG CPDR 1 cap po qd LANSOPRAZOLE 31833087130 No Longer Active Vishal Hui MD Active BACLOFEN 20 MG TABS 1 tab po tid BACLOFEN 78839398624 No Longer Active Vishal Hui MD Active ADVAIR DISKUS 250-50 MCG/DOSE AEPB 1 puff BID ADVAIR DISKUS 250-50 MCG/DOSE AEPB FLUTICASONE-SALMETEROL Inactive ESCITALOPRAM OXALATE 20 MG TABS 1 tab po qd ESCITALOPRAM OXALATE 20 MG TABS 949624 ESCITALOPRAM OXALATE Inactive ATENOLOL 25 MG TABS 1 tab po qd ATENOLOL 25 MG TABS 527993 ATENOLOL Inactive BENZTROPINE MESYLATE 1 MG TABS 1 tab po qd BENZTROPINE MESYLATE 1 MG TABS 898769 BENZTROPINE MESYLATE Inactive BUSPIRONE HCL 15 MG TABS 1 tab po TID BUSPIRONE HCL 15 MG TABS 280128 BUSPIRONE HCL Inactive LEVOFLOXACIN 500 MG TABS 1 tab po qd LEVOFLOXACIN 500 MG TABS 432636 LEVOFLOXACIN Inactive PREDNISONE 20 MG TABS 1 tab po qd PREDNISONE 20 MG TABS 816407 PREDNISONE Inactive MIRALAX POWD 1 capfull once daily MIRALAX POWD 210198 POLYETHYLENE GLYCOL 3350 Inactive VERAPAMIL HCL ER 180 MG CR-TABS 1 tab po bid VERAPAMIL HCL ER 180 MG CR-TABS VERAPAMIL HCL Inactive LORATADINE 10 MG TABS 1 tab po qd LORATADINE 10 MG TABS 995960 LORATADINE Inactive LYRICA 50 MG CAPS 1 tab po TID LYRICA 50 MG CAPS PREGABALIN Inactive ZALEPLON 10 MG CAPS 1 cap po every other night ZALEPLON 10 MG CAPS 423366 ZALEPLON Inactive SAPHRIS 5 MG SUBL 1 tab po qd SAPHRIS 5 MG SUBL ASENAPINE MALEATE Inactive TRAZODONE HCL 50 MG TABS 1/2 tab po qd prn for anxiety TRAZODONE HCL 50 MG TABS 709175 TRAZODONE HCL Inactive LATUDA 20 MG TABS Take one by mouth daily LATUDA 20 MG TABS LURASIDONE HCL Inactive LISINOPRIL 20 MG TABS 1 tab po qd LISINOPRIL 20 MG TABS 175977 LISINOPRIL Inactive SAPHRIS 10 MG SUBL 1 [...] twice daily BACTRIM DS 800-160 MG TAB 556963 TRIMETHOPRIM-SULFAMETHOXAZOLE Inactive MULTIVITAMINS CAPS Take one by mouth daily MULTIVITAMINS CAPS MULTIPLE VITAMIN Inactive MELATONIN 3 MG CAPS 2 po q hs MELATONIN 3 MG CAPS 146281 MELATONIN Inactive KEFLEX 500 MG ORAL CAPS 1 cap QID by mouth KEFLEX 500 MG ORAL CAPS 506787 CEPHALEXIN Inactive CLINDAMYCIN HCL 150 MG CAPS 1 four times a day CLINDAMYCIN HCL 150 MG CAPS 147940 CLINDAMYCIN HCL Inactive DIFLUCAN 150 MG TAB 1 tablet by mouth daily DIFLUCAN 150 MG TAB 226831 FLUCONAZOLE Inactive PROZAC 20 MG CAP Take one by mouth daily PROZAC 20 MG CAP 773865 FLUOXETINE HCL Inactive IBUPROFEN 600 MG TAB 1 po TID PRN IBUPROFEN 600 MG TAB 901396 IBUPROFEN Inactive VYVANSE 40 MG CAPS 1 daily, VYVANSE 40 MG CAPS LISDEXAMFETAMINE DIMESYLATE Inactive TRAZODONE HCL 100 MG TAB take 1 at bedtime TRAZODONE HCL 100 MG TAB 234065 TRAZODONE HCL Inactive AMITRIPTYLINE HCL 100 MG TAB one at hs AMITRIPTYLINE HCL 100 MG TAB 189420 AMITRIPTYLINE HCL Inactive AMLODIPINE BESYLATE 5 MG TABS 1 tablet by mouth daily AMLODIPINE BESYLATE 5 MG TABS 175637 AMLODIPINE BESYLATE Inactive LATUDA 80 MG TABS Take one by mouth daily LATUDA 80 MG TABS LURASIDONE HCL Inactive SAPHRIS 5 MG SUBL 1 po bid SAPHRIS 5 MG SUBL ASENAPINE MALEATE Inactive PREDNISONE 20 MG TAB 2 tabs daily for 4 days, 1 tab daily for 4 days, 1/2 tab daily for 4 days PREDNISONE 20 MG TAB 927845 PREDNISONE Inactive AMBIEN 5 MG ORAL TABS 1 tab at bedtime AMBIEN 5 MG ORAL TABS 697215 ZOLPIDEM TARTRATE Inactive PROZAC 20 MG ORAL CAPS 1 tab daily PROZAC 20 MG ORAL CAPS 719011 FLUOXETINE HCL Inactive ABILIFY 15 MG ORAL TABS 1 tab daily ABILIFY 15 MG ORAL TABS 271612 ARIPIPRAZOLE Inactive METOPROLOL TARTRATE 50 MG TAB 1 po bid METOPROLOL TARTRATE 50 MG TAB 131468 METOPROLOL TARTRATE Inactive TRAMADOL HCL 50 MG TABS 1-2 po TID PRN Pain TRAMADOL HCL 50 MG TABS 759287 TRAMADOL HCL Inactive PIROXICAM 20 MG CAPS 1 cap po qd PRN Pain PIROXICAM 20 MG CAPS 384165 PIROXICAM Inactive MINIPRESS 2 MG CAPS 4 cap po at night MINIPRESS 2 MG CAPS 289856 PRAZOSIN HCL Inactive MIRALAX PACK 1 po qd PRN Constipation MIRALAX PACK 890957 POLYETHYLENE GLYCOL 3350 Inactive METOPROLOL TARTRATE 25 MG ORAL TABS 1/2 tablet twice daily for heart rate and blood pressure METOPROLOL TARTRATE 25 MG ORAL TABS 424608 METOPROLOL TARTRATE Inactive VALIUM 5 MG TAB Take 1-2 tablets daily VALIUM 5 MG TAB 920403 DIAZEPAM Inactive FLAGYL 500 MG TAB 1 tablet by mouth bid FLAGYL 500 MG TAB 832380 METRONIDAZOLE Inactive DICLOFENAC POTASSIUM TABS Take 1 tablet twice a day (pt. is not sure of the dose.) DICLOFENAC POTASSIUM TABS DICLOFENAC POTASSIUM TABS Inactive ZITHROMAX Z-EARNEST 250 MG TABS 2 today and then 1 daily for 4 days ZITHROMAX Z-EARNEST 250 MG TABS 4531962 AZITHROMYCIN Inactive PREDNISONE 20 MG TABS 2 daily for 5 days then 1 daily for 5 days PREDNISONE 20 MG TABS 951978 PREDNISONE Inactive PROAIR HFA 108 (90 BASE) MCG/ACT AERS 2 puffs four times a day as needed 2015 PROAIR HFA 108 (90 BASE) MCG/ACT AERS ALBUTEROL SULFATE Inactive HYDROCODONE-ACETAMINOPHEN 5-325 MG TABS 1 to 2 four times a day as needed for pain use until can be seen by specialist HYDROCODONE- ACETAMINOPHEN 5-325 MG TABS 848589 HYDROCODONE-ACETAMINOPHEN Inactive TESSALON PERLES 100 MG CAP 1 to 2 tablets by mouth 3 times daily as needed for cough TESSALON PERLES 100 MG CAP 573535 BENZONATATE Inactive CHANTIX STARTING MONTH EARNEST 0.5 [...] Pain 2015 DICLOFENAC SODIUM 50 MG TBEC 521504 DICLOFENAC SODIUM Inactive TOPAMAX 50 MG ORAL TABS 1 tab twice daily TOPAMAX 50 MG ORAL TABS 496928 TOPIRAMATE Inactive VIIBRYD 10 MG ORAL TABS Take 1 tablet once a day VIIBRYD 10 MG ORAL TABS VILAZODONE HCL Inactive LEVOFLOXACIN 500 MG ORAL TABS po daily LEVOFLOXACIN 500 MG ORAL TABS 296670 LEVOFLOXACIN Inactive METHYLPREDNISOLONE 4 MG ORAL TABS po daily METHYLPREDNISOLONE 4 MG ORAL TABS 958648 METHYLPREDNISOLONE Inactive OXYCODONE HCL ER 10 MG ORAL T12A 1/2 tab by mouth every 4 hours prn OXYCODONE HCL ER 10 MG ORAL T12A OXYCODONE HCL Inactive FLAGYL 500 MG TAB 1 tablet by mouth bid FLAGYL 500 MG TAB 974982 METRONIDAZOLE Inactive MONISTAT 7 COMBO PACK WOODROW 100 & 2 MG-% (9GM) VAG KIT 1 applicatorful per vagina q pm x 7 MONISTAT 7 COMBO PACK WOODROW 100 & 2 MG-% (9GM) VAG KIT MICONAZOLE NITRATE Inactive BACTRIM DS 800-160 MG TABS 1 twice a day BACTRIM DS 800-160 MG TABS 478032 SULFAMETHOXAZOLE-TRIMETHOPRIM Inactive TRAMADOL HCL 50 MG TABS 1/2-1 tab TID PRN TRAMADOL HCL 50 MG TABS 911195 TRAMADOL HCL Inactive ABILIFY MAINTENA 400 MG IM SUSR 400mg injection every 26 days ABILIFY MAINTENA 400 MG IM SUSR ARIPIPRAZOLE Inactive KLONOPIN 1 MG ORAL TABS 1 tab po TID KLONOPIN 1 MG ORAL TABS 569673 CLONAZEPAM Inactive ADVAIR DISKUS 250-50 MCG/DOSE INH AEPB 1 puff twice a day for asthma ADVAIR DISKUS 250-50 MCG/DOSE INH AEPB FLUTICASONE- SALMETEROL Inactive BENADRYL 25 MG CAP 4 po at bedtime for insomnia BENADRYL 25 MG CAP DIPHENHYDRAMINE HCL Inactive PREDNISONE 20 MG TABS 2 daily for 5 days then 1 daily for 5 days PREDNISONE 20 MG TABS 093513 PREDNISONE Inactive HYDROCODONE-ACETAMINOPHEN 5-325 MG ORAL TABS 1 tab two times a day HYDROCODONE-ACETAMINOPHEN 5-325 MG ORAL TABS 903584 HYDROCODONE-ACETAMINOPHEN Inactive ZITHROMAX Z-EARNEST 250 MG TABS 2 today and then 1 daily for 4 days ZITHROMAX Z-EARNEST 250 MG TABS 6469276 AZITHROMYCIN Inactive GUAIFENESIN-CODEINE 100-10 MG/5ML SYRP 5ml every 4 to 6 hours as needed for cough GUAIFENESIN-CODEINE 100-10 MG/5ML SYRP 123659 GUAIFENESIN-CODEINE Inactive HALOPERIDOL 10 MG ORAL TABS 1 tab q.d HALOPERIDOL 10 MG ORAL TABS 956575 HALOPERIDOL Inactive ASPIRIN 325 MG ORAL TABS 1 tab q.d ASPIRIN 325 MG ORAL TABS 032134 ASPIRIN Inactive FLUTICASONE PROPIONATE 50 MCG/ACT SUSP 2 sprays each nostril daily before bed. FLUTICASONE PROPIONATE 50 MCG/ACT SUSP 9465214 FLUTICASONE PROPIONATE Inactive ZOFRAN 4 MG TABS 1 po q6hr PRN Nausea ZOFRAN 4 MG TABS 865066 ONDANSETRON HCL Inactive KEFLEX 500 MG CAP 1 po qid KEFLEX 500 MG CAP 313685 CEPHALEXIN Inactive ACETAMINOPHEN-CODEINE 120-12 MG/5ML SOLN 5 ml by mouth every 4-6 hours if needed for cough ACETAMINOPHEN-CODEINE 120-12 MG/5ML SOLN 155490 ACETAMINOPHEN-CODEINE Inactive PREDNISONE 20 MG TAB 1 tablet daily x 4 days PREDNISONE 20 MG TAB 794373 PREDNISONE Inactive TROPICAMIDE 0.5 % OPHTH SOLN 1 drop PRN eye spasms TROPICAMIDE 0.5 % [facility] 078250 TROPICAMIDE Inactive LEVAQUIN 500 MG TABS 1 daily for infection LEVAQUIN 500 MG TABS 219706 LEVOFLOXACIN Inactive PREDNISONE 10 MG TABS 2 daily for 5 days then 1 daily for 5 days PREDNISONE 10 MG TABS 271947 PREDNISONE Inactive EQ NICOTINE 21 MG/24HR TRANS [...] for cough TESSALON PERLES 100 MG CAPS 483078 BENZONATATE Inactive CEFDINIR 300 MG CAPS by mouth twice a day CEFDINIR 300 MG CAPS 559113 CEFDINIR Inactive PREDNISONE 20 MG TAB 2 tabs daily for 3 days, 1 tab daily for 3 days, 1/2 tab daily for 2 days PREDNISONE 20 MG TAB 905842 PREDNISONE Inactive BACTRIM DS 800-160 MG TABS 1 po BID x 7 days BACTRIM DS 800-160 MG TABS 617329 SULFAMETHOXAZOLE-TRIMETHOPRIM Inactive DIFLUCAN 150 MG TABS 1 pill every other day x 2 doses DIFLUCAN 150 MG TABS 19751126 FLUCONAZOLE Inactive BACTRIM DS 800-160 MG TABS 1 pill by mouth twice daily BACTRIM DS 800-160 MG TABS 559541 SULFAMETHOXAZOLE-TRIMETHOPRIM Inactive KEFLEX 500 MG CAP 1 po TID x 10 days KEFLEX 500 MG CAP 381988 CEPHALEXIN Inactive Advance Directives Directive Description Start [...] % 11.0-15.0 platelet count 443 THOUSAND/UL 10*3/mm3 772-104 3843/03/01 mean platelet volume 8.2 fL 7.5-12.5 leukocyte [...] % 11.0-15.0 platelet count 349 THOUSAND/UL 10*3/mm3 484-526 7582/04/12 mean platelet volume 8.4 fL 7.5-12.5 Lab [...] 369 10^3/MM^3 10*3/mm3 142-424 Lab Report: Chlamydia/GC APTIMA/[id number] - Lab chlamydia DNA probe NOT DETECTED NOT DETECTED Lab Report: Chlamydia/GC APTIMA/[id number] - Microbiology Neisseria gonorrhoeae DNA probe NOT DETECTED NOT DETECTED Lab Report: Chlamydia/GC APTIMA/38809, Urinalysis, Complete, with Reflex ... - Lab chlamydia DNA probe NOT DETECTED NOT DETECTED Lab Report: Chlamydia/GC APTIMA/[id number], Urinalysis, Complete, with Reflex ... - Microbiology Neisseria gonorrhoeae DNA probe NOT DETECTED NOT DETECTED Lab Report: Chlamydia/GC APTIMA/[id number], Urinalysis, Complete, with Reflex ... - Urinalysis [...] 0.30 mg/dL 0.00-1.00 sodium, serum 140 mmol/L 343-347 3839/08/08 carbon dioxide, venous blood 33.7 mmol/L 21.0-32.0 [...] sodium, serum 142 mmol/L 136-145 Lab Report: HEPATITIS PANEL, ACUTE W/REFLE - [...] mg/dL Encounters Code Encounter Date Provider Facility [id number] Level 3 Est. Patient 10:00:25 CDT Suzan Boo [facility] CPT-71963 Level 3 Est. Patient 10:29:30 CDT Suzan Boo [facility] CPT-83981 Level 3 Est. Patient 11:04:38 CDT Renzo Thornton [facility] CPT-54017 Level 3 Est. Patient 11:15:58 SMOKING [employer] Renzo Thornton [facility] CPT-51735 Level 3 Est. Patient 15:28:23 [employer]MOKING [employer] Suzan Boo [facility] CPT-00099 Level 4 Est. Patient 10:20:54 [employer] Suzan Boo [facility] CPT-24312 Level 3 Est. Patient 11:47:37 S[employer]KING P[employer] Ahmet Carbajal MD [facility] CPT-99257 Level 3 Est. Patient 10:40:11 [employer]KING [employer] Ahmet Carbajal MD [facility] CPT-77708 Level 3 Est. Patient 15:07:06 [employer]KING [employer] Neeraj Collins MD [facility] CPT-88224 Level 4 Est. Patient 14:45:00 [employer]KING [employer] Ahmet Carbajal MD [facility] CPT-16202 Level 3 Est. Patient 13:59:59 CDT Luigi Martínez [facility] CPT-17088 Level 3 Est. Patient 18:18:53 CDT Neeraj Collins MD [facility] CPT-83148 Level 3 Est. Patient 15:50:44 CDT Vishal Hui MD [facility] CPT-54260 Level 3 Est. Patient 11:36:17 CDT Ahmet Carbajal MD [facility] CPT-49383 Level 3 Est. Patient 13:29:16 CDT Vishal Hui MD [facility] CPT-01488 Level 3 Est. Patient 14:27:52 CDT Neeraj Collins MD [facility] CPT-00490 Level 3 Est. Patient 08:56:03 CDT Luigi Martínez [facility] CPT-60786 Level 4 Est. Patient 12:11:48 CDT Fabiola Johnson [facility] CPT-56296 Level 3 New Patient 16:53:37 CDT Albert Caldera MD [facility] CPT-12998 Level 3 Est. Patient 11:25:49 CDT Renzo Thornton DO [facility] CPT-37832 Level 3 Est. Patient 15:22:01 CDT Ahmet Carbajal MD [facility] CPT-14808 Level 4 Est. Patient 09:00:51 [employer] Vishal Hui MD [facility] CPT-30374 Level 3 Est. Patient 11:37:33 S[employer]KING [employer] Vishal Hui MD [facility] CPT-96601 Level 3 Est. Patient 08:41:09 SMOKING P[employer] Vishal Hui MD [facility] CPT-89201 Level 4 Est. Patient 10:19:35 [employer]KING [employer] Vishal Hui MD [facility] CPT-15679 Level 3 Est. Patient 13:35:45 CDT Vishal Hui MD [facility] CPT-98661 Level 4 Est. Patient 10:08:37 CDT Vishal Hui MD [facility]-66790 Level 3 Est. Patient 11:22:10 CDT Vishal Hui MD [facility] CPT-52231 Level 3 Est. Patient 11:03:32 CDT Sahara Rodriguez MD [facility]-55569 Level 3 Est. Patient 09:41:35 CDT Vishal Hui MD -64310 Level 3 Est. Patient 12:00:41 CDT Neeraj Collins MD [facility]-84004 Level 3 Est. Patient 09:16:24 CDT Vishal Hui MD [facility] CPT-52091 Level 4 Est. Patient 13:59:09 CDT Neeraj Collins MD [facility] CPT-40771 Level 3 Est. Patient 15:19:43 CDT Renzo Thornton DO [facility] CPT-84105 Level 3 Est. Patient 18:10:26 CDT Sahara Rodriguez MD [facility]-06374 Level 3 Est. Patient 14:49:50 CDT Vishal Hui MD [facility]-41288 Level 4 Est. Patient 18:41:46 CDT Neeraj Collins MD [facility] CPT-60238 Level 4 Est. Patient 09:18:38 S[employer]KING [employer] Vishal Hui MD -76541 Level 3 Est. Patient 14:43:55 SMOKING [employer] Vishal Hui MD [facility] CPT-23216 Level 3 Est. Patient 15:26:33 SMOKING [employer] Sahara Rodriguez MD [facility]-59462 Level 3 Est. Patient 10:32:14 SMOKING [employer] Vishal Hui MD [facility] CPT-15960 Level 3 Est. Patient 15:12:52 [employer]KING [employer] Vishal Hui MD [facility] CPT-48203 Level 4 Est. Patient 09:19:27 CDT Vishal Hui MD [facility] CPT-01502 Level 3 Est. Patient 15:53:00 CDT Renzo Thornton [facility] CPT-24649 Level 3 Est. Patient 15:50:30 CDT Renzo Thornton [facility] CPT-50111 Level 3 Est. Patient 16:55:24 CDT Vishal Hui MD [facility] Procedures Code Procedure Name Date Entry Date Standard Description CPT-52323 Venipuncture Draw Fee 08:41:12 CDT CPT-90814 Abd compl w upright - XRAY USE ONLY 10:27:59 CDT 06/28 CPT-46519 Smoking Cessation counseling 11:15:58 [employer] CPT-G0439 [facility] Annual Wellness Exam 09:30:58 [employer] CPT-66520 TSH - LAB USE ONLY 08:50:26 [employer] CPT-57739 CBC - LAB USE ONLY 08:50:26 [employer] CPT-41604 Venipuncture Draw Fee 08:50:26 [employer] CPT-00310 Abx/Therapy Injection 17:34:30 [employer]KING [employer] CPT-26631 Nexplanon Removal with Reinsertion 14:09:32 CDT CPT-J7307 Nexplanon (Implant) 14:09:32 CDT CPT-OV Office Visit 14:09:32 CDT CPT-95035 UA w micro - LAB USE ONLY 16:21:13 CDT CPT-79532 Wet Mount - LAB USE ONLY 16:21:13 CDT CPT-75218 First Vx - Ix admin for Medicare patients 14:37:47 CDT CPT-11767 Fluzone Preservative Free Intramuscular Suspension 14:37 :47 CDT CPT-49610 Abx/Therapy Injection 13:54:22 CDT CPT-48726 Abx/Therapy Injection 08:47:09 CDT CPT-03397 Abx/Therapy Injection 13:29:56 CDT CPT-95444 Abx/Therapy Injection 08:36:16 CDT CPT-41319 Wet [place] - LAB USE ONLY 17:44:58 CDT CPT-99219 UA w micro - LAB USE ONLY 17:44:58 CDT CPT-68815 CMP - LAB USE ONLY 17:44:58 CDT CPT-23169 Venipuncture Draw Fee 17:44:58 CDT CPT-93105 Cervical Min 4V - XRAY USE ONLY 09:01:40 CDT CPT-20713 Chest 2V Frontal and Lat - XRAY USE ONLY 11:06:31 CDT CPT-05596 EKG Trac and Interp - XRAY USE ONLY 11:31:43 CDT 08/26 CPT-J3420 Vitamin B12 1000mcg (Cyanocobalamin) 08:10:26 SMOKING [employer] 04/12 CPT-91425 Abx/Therapy Injection 08:10:26 SMOKING [employer] CPT-G0438 Initial Annual Wellness Exam 19:01:01 [employer] CPT-J3420 Vitamin B12 1000mcg (Cyanocobalamin) 16:57:46 CDT 08/14 CPT-86634 Recombivax HB Injection Suspension 5 MCG/0.5ML 08:37:50 S[employer]KING [employer] CPT-79889 Immunization Single Admin 08:37:50 SMOKING P[employer] CPT-J3420 Vitamin B12 1000mcg (Cyanocobalamin) 08:32:16 SMOKING P[employer]ER 03/11 CPT-05707 Abx/Therapy Injection 08:32:16 SMOKING P[employer] CPT-93220 Chest 2V Frontal and Lat 11:46:38 SMOKING [employer] CPT-25766 Venipuncture Draw Fee 09:12:45 SMOKING [employer] CPT-J3420 Vitamin B12 1000mcg (Cyanocobalamin) 08:50:15 SMOKING P[employer]ER 02/08 CPT-68123 Abx/Therapy Injection 08:50:15 SMOKING P[employer] CPT-Cryo Cryotherapy 10:19:35 S[employer]KING [employer] CPT-000 Give Appropriate Flu Vaccine 09:22:16 CDT CPT-J3420 Vitamin B12 1000mcg (Cyanocobalamin) 19:08:57 CDT 01/11 CPT-18710 Abx/Therapy Injection 19:08:57 CDT CPT-J3420 Vitamin B12 1000mcg (Cyanocobalamin) 08:19:08 CDT 12/11 CPT-96126 Abx/Therapy Injection 08:19:08 CDT CPT-J3420 Vitamin B12 1000mcg (Cyanocobalamin) 14:48:00 CDT 11/09 CPT-00775 Abx/Therapy Injection 14:47:59 CDT CPT-J3420 Vitamin B12 1000mcg (Cyanocobalamin) 08:34:04 CDT 10/09 CPT-52141 Abx/Therapy Injection 08:34:04 CDT CPT-J3420 Vitamin B12 1000mcg (Cyanocobalamin) 09:18:52 CDT 09/11 CPT-68836 Abx/Therapy Injection 09:18:52 CDT CPT-J3420 Vitamin B12 1000mcg (Cyanocobalamin) 08:35:44 CDT 09/04 CPT-20644 Abx/Therapy Injection 08:35:44 CDT CPT-01646 Immunization Single Admin 11:07:16 CDT CPT-73269 Hepatitis B adult IM 11:07:16 CDT CPT-J3420 Vitamin B12 1000mcg (Cyanocobalamin) 11:00:49 CDT 08/28 CPT-J1040 Depo Medrol 80 mg (Methyl Prednisolone Acetate) 11:00: 49 CDT CPT-55499 Abx/Therapy Injection 11:00:49 CDT CPT-J1040 Depo Medrol 80 mg (Methyl Prednisolone Acetate) 09:16: 23 CDT CPT-J3420 Vitamin B12 1000mcg (Cyanocobalamin) 08:27:05 CDT 08/20 CPT-84943 Abx/Therapy Injection 08:27:05 CDT CPT-02177 Recombivax HB Injection Suspension 5 MCG/0.5ML 10:00:41 CDT CPT-35369 Administration single or combination vaccine inc oral 10 :00:41 CDT CPT-82142 Sono transvag pelvis non OB uterus ovaries cervix 16:36: 57 CDT CPT-09583 LS spine comp w obliq 09:50:55 [employer] CPT-94887 Abd compl w upright 09:50:55 [employer]KING [employer] CPT-J1100 Decadron 4mg (Dexamethasone) 15:51:24 SMOKING [employer] CPT-J1030 Depo Medrol 40 mg (Methyl Prednisolone Acetate) 15:51: 24 SMOKING [employer] CPT-97408 Abx/Therapy Injection 15:51:24 SMOKING PIPE [employer]ER CPT-J1100 Decadron 4mg (Dexamethasone) 15:26:33 SMOKING [employer] CPT-J1030 Depo Medrol 40 mg (Methyl Prednisolone Acetate) 15:26: 33 [employer]MOKING [employer] CPT-37127 Sono retroperitoneal complete kidneys and bladder 17:15: 30 CDT CPT-25656 Abd compl w upright 16:09:25 CDT CPT-J1100 Decadron 8mg (Dexamethasone) 17:07:57 CDT CPT-40852 Abx/Therapy Injection 17:07:57 CDT CPT-J1100 Decadron 8mg (Dexamethasone) 16:55:24 CDT CPT-70941 Chest 2V Frontal and Lat 16:32:44 CDT
--- OUTSIDE RECORDS SUMMARY | 2016-11-04 17:23 | XMS REPORT | Clinical Summary ---
Author Author Admin, [facility] Organization [facility] [employer] 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 V72.31 Resolved Suzan Boo [...] for closed fracture ICD-823.01 Inactive Suzan Boo DECORATOR STORE Vaginal discharge ICD-623.5 Inactive Suzan Boo DECORATOR STORE DYSURIA ICD-788.1 Inactive Suzan Boo DECORATOR STORE Cellulitis and abscess of breast ICD-611.0 Inactive Ahmet Carbajal MD Nondisplaced transverse fracture of shaft of left fibula, subsequent encounter for closed fracture with routine healing Inactive Suzan Boo DECORATOR STORE Bronchitis, acute ICD-466.0 Inactive Ahmet Carbajal MD 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 ICD-V72.31 Inactive Suzan Boo DECORATOR STORE Bronchitis, acute with mild bronchospasm ICD-466.0 Inactive Suzan Boo DECORATOR STORE Tracheitis ICD-464.10 Inactive Suzan Boo DECORATOR STORE Impetigo ICD-684 Inactive Suzan Boo DECORATOR STORE Furuncle of buttock ICD-680.5 Inactive Suzan Boo DECORATOR STORE Vaginal irritation ICD-623.9 Inactive Suzan Boo DECORATOR STORE Scalding pain on urination ICD-788.1 Inactive Suzan Boo DECORATOR STORE Abdominal pain, right upper quadrant ICD-789.01 Inactive Suzan Boo DECORATOR STORE Dark urine ICD-791.9 Inactive Suzan Boo APRN Preop exam ICD-V72.84 Inactive Suzan Boo APRN Medication List Medication Instructions Start Date Stop Date Generic Name ND Status Provider Patient Instruction METFORMIN HCL 500 MG [id number] one a day for a week, then 2 a day METFORMIN HCL 00569558249 Active Malharvey Zigledenilson HADDAD Active NYSTATIN 889462 UNIT/GM CREA apply three times a day to yeast rash NYSTATIN 52403293707 No Longer Active Maliheh Ziglari TANKAGE GRINDER OPERATOR Active BACTRIM DS 800-160 MG TABS 1 twice a day SULFAMETHOXAZOLE-TRIMETHOPRIM 53490247693 No Longer Active Maliheh Ziglari TANKAGE GRINDER OPERATOR Active MUPIROCIN 2 % OINT apply twice a day MUPIROCIN 28514583512 Active Suzan Boo APRN Active [id number] 50-325-40 MG TABS 1 to 2 four times a day as needed for headache [id number] 36200374902 Active Suzan Boo APRN Active METOCLOPRAMIDE HCL 10 MG TABS 1 two times as needed for nausea and headaches METOCLOPRAMIDE HCL 86844405209 Active Meena Ortiz MA Active AMITIZA 24 MCG ORAL CAPS one capsule twice daily LUBIPROSTONE 21144364240 Active Suzan Boo APRN Active MIRALAX ORAL POWD 17GMS DAILY IN WATER POLYETHYLENE GLYCOL 3350 76300362015 No Longer Active Suzan Boo APRN Active LACTULOSE 10 GM/15ML ORAL SOLN 30mL oral BID for IBS-C LACTULOSE 56598209756 No Longer Active Suzan Boo APRN Active BACTRIM DS 800-160 MG TAB Take one (1) tablet by mouth twice a day for 5 days TRIMETHOPRIM-SULFAMETHOXAZOLE 71632392616 No Longer Active Suzan Boo APRN Active MUPIROCIN 2 % OINT apply twice a day MUPIROCIN 43771178863 No Longer Active Suzan Boo APRN Active BACTRIM DS 800-160 MG TABS 1 twice a day SULFAMETHOXAZOLE-TRIMETHOPRIM 82533865034 No Longer Active Suzan Boo APRN Active DIFLUCAN 150 MG TABS 1 by mouth for yeast FLUCONAZOLE 98937096211 No Longer Active Suzan Boo APRN Active LINZESS 290 MCG ORAL CAPS 1 tab 30 min prior to first meal each day. LINACLOTIDE 00819301836 No Longer Active Sheila Calderon LPN Active AMITIZA 8 MCG ORAL CAPS 1 tab BID LUBIPROSTONE 33674848283 No Longer Active Lynda Xiao LPN Active TESSALON PERLES 100 MG CAPS 1 three times a day as needed for cough BENZONATATE 26428108585 No Longer Active Suzan Boo APRN Active BACTRIM DS 800-160 MG TABS 1 twice a day SULFAMETHOXAZOLE-TRIMETHOPRIM 56778917107 No Longer Active Suzan Boo APRN Active DIFLUCAN 150 MG TABS 1 by mouth for yeast FLUCONAZOLE 42474209856 No Longer Active Suzan Boo APRN Active EQ NICOTINE 21 MG/24HR TRANS PT24 Apply daily to stop smoking NICOTINE 58654659858 No Longer Active Suzan Boo APRN Active PREDNISONE 10 MG TABS 2 daily for 5 days then 1 daily for 5 days PREDNISONE 15587752788 No Longer Active Suzan Boo APRN Active LEVAQUIN 500 MG TABS 1 daily for infection LEVOFLOXACIN 34318046481 No Longer Active Suzan Boo APRN Active TROPICAMIDE 0.5 % OPHTH SOLN 1 drop PRN eye spasms TROPICAMIDE 17425334065 No Longer Active Suzan Boo APRN Active PREDNISONE 20 MG TAB 1 tablet daily x 4 days PREDNISONE 80912092034 No Longer Active Suzan Boo APRN Active ACETAMINOPHEN-CODEINE 120-12 MG/5ML SOLN 5 ml by mouth every 4-6 hours if needed for cough ACETAMINOPHEN-CODEINE 47432621670 No Longer Active Suzan Boo APRN Active KEFLEX 500 MG CAP 1 po qid CEPHALEXIN 81132339863 No Longer Active Suzan Boo APRN Active FLOVENT HFA 110 MCG/ACT AERO 2 puffs inhaled b.i.d. FLUTICASONE PROPIONATE HFA 22021668904 Active Renzo Thornton DO Active RISPERDAL 4 MG ORAL TABS 1 tab at bedtime RISPERIDONE 68546055891 Active Samantha WAGNERA Active ZOFRAN 4 MG TABS 1 po q6hr PRN Nausea ONDANSETRON HCL No Longer Active Suzan Boo APRN Active FLUTICASONE PROPIONATE 50 MCG/ACT SUSP 2 sprays each nostril daily before bed. FLUTICASONE PROPIONATE 48820472134 No Longer Active Suzan Boo APRN Active ASPIRIN 325 MG ORAL TABS 1 tab q.d ASPIRIN 54305658037 No Longer Active Suzan Boo APRN Active HALOPERIDOL 10 MG ORAL TABS 1 tab q.d HALOPERIDOL 84050086903 No Longer Active Suzan Boo APRN Active GUAIFENESIN-CODEINE 100-10 MG/5ML SYRP 5ml every 4 to 6 hours as needed for cough GUAIFENESIN-CODEINE 87450567659 No Longer Active Suzan Boo APRN Active ZITHROMAX Z-EARNEST 250 MG TABS 2 today and then 1 daily for 4 days AZITHROMYCIN 51178994375 No Longer Active Suzan oBo APRN Active CLONAZEPAM 1 MG ORAL TABS 1 twice a day and an additional 1 tablet every other day as needed for pseudoseizures or anxiety CLONAZEPAM 69025088581 Active Suzan Boo APRN Active HYDROCODONE-ACETAMINOPHEN 5-325 MG ORAL TABS 1 tab two times a day HYDROCODONE-ACETAMINOPHEN 08408352843 No Longer Active Ahmet Carbajal MD Active LAMICTAL 100 MG ORAL TABS 1 tab 2 times qd. LAMOTRIGINE 95038061068 Active Ahmet Carbajal MD Active PREDNISONE 20 MG TABS 2 daily for 5 days then 1 daily for 5 days PREDNISONE 38636081533 No Longer Active Ahmet Carbajal MD Active FLUTICASONE PROPIONATE 50 MCG/ACT SUSP 1 to 2 sprays each nostril daily for allergies FLUTICASONE PROPIONATE 72940019171 Active Tila Valenzuela Active BENADRYL 25 MG CAP 4 po at bedtime for insomnia DIPHENHYDRAMINE HCL 27564305045 No Longer Active Ahmet Carbajal MD Active ADVAIR DISKUS 250-50 MCG/DOSE INH AEPB 1 puff twice a day for asthma FLUTICASONE-SALMETEROL 49738742518 No Longer Active Ahmet Carbajal MD Active KLONOPIN 1 MG ORAL TABS 1 tab po TID CLONAZEPAM 38528084902 No Longer Active Ahmet Carbajal MD Active ABILIFY MAINTENA 400 MG IM SUSR 400mg injection every 26 days ARIPIPRAZOLE 92219796582 No Longer Active Ahmet Carbajal MD Active TRAMADOL HCL 50 MG TABS 1/2-1 tab TID PRN TRAMADOL HCL 91503228399 No Longer Active Ahmet Carbajal MD Active BACTRIM DS 800-160 MG TABS 1 twice a day SULFAMETHOXAZOLE- TRIMETHOPRIM 70441383818 No Longer Active Ahmet Carbajal MD Active PROAIR HFA 108 (90 BASE) MCG/ACT AERS 2 puffs four times a day as needed 2015 ALBUTEROL SULFATE 31263585358 Active Honey Hinton APRN Active MONISTAT 7 COMBO PACK WOODROW 100 & 2 MG-% (9GM) VAG KIT 1 applicatorful per vagina q pm x 7 MICONAZOLE NITRATE 55212190345 No Longer Active Ahmet Carbajal MD Active FLAGYL 500 MG TAB 1 tablet by mouth bid METRONIDAZOLE 49785206509 No Longer Active Ahmet Carbajal MD Active OXYCODONE HCL ER 10 MG ORAL T12A 1/2 tab by mouth every 4 hours prn OXYCODONE HCL 89077596297 No Longer Active Ahmet Carbajal MD Active METHYLPREDNISOLONE 4 MG ORAL TABS po daily METHYLPREDNISOLONE 07659370030 No Longer Active Ahmet Carbajal MD Active LEVOFLOXACIN 500 MG ORAL TABS po daily LEVOFLOXACIN 03615112217 No Longer Active Ahmet Carbajal MD Active VIIBRYD 10 MG ORAL TABS Take 1 tablet once a day VILAZODONE HCL 59114808088 No Longer Active Ahmet Carbajal MD Active TOPAMAX 50 MG ORAL TABS 1 tab twice daily TOPIRAMATE 30517664598 No Longer Active Ahmet Carbajal MD Active DICLOFENAC SODIUM 50 MG TBEC 1 tablet by mouth four times daily PRN Pain 2015 DICLOFENAC SODIUM 40536762323 No Longer Active Ahmet Carbajal MD Active ADZENYS XR-ODT 6.3 MG ORAL TBED 1 tab po daily for ADHD AMPHETAMINE 64235895429 No Longer Active Ahmet Carbajal MD Active CHANTIX 1 MG TABS 1 twice a day to help quit smoking VARENICLINE TARTRATE 46921627499 No Longer Active Dipika Burgos MD Active CHANTIX STARTING MONTH EARNEST 0.5 MG X 11 & 1 MG X 42 TABS take as directed 2015 VARENICLINE TARTRATE 29635190040 No Longer Active Dipika Burgos MD Active TESSALON PERLES 100 MG CAP 1 to 2 tablets by mouth 3 times daily as needed for cough BENZONATATE 68804242913 No Longer Active Luigi Martínez APRN Active IMITREX 50 MG ORAL TABS 0.5 po x 1 PRN Headache. May repeat dose x 1 in 2 hours if needed SUMATRIPTAN SUCCINATE 10257399687 Active TAMARA Casey Active HYDROCODONE-ACETAMINOPHEN 5-325 MG TABS 1 to 2 four times a day as needed for pain use until can be seen by specialist HYDROCODONE- ACETAMINOPHEN 71169376029 No Longer Active Vishal Hui MD Active PROAIR HFA 108 (90 BASE) MCG/ACT AERS 2 puffs four times a day as needed 2015 ALBUTEROL SULFATE 39064530600 No Longer Active Vishal Hui MD Active PREDNISONE 20 MG TABS 2 daily for 5 days then 1 daily for 5 days PREDNISONE 04047347254 No Longer Active Vishal Hui MD Active ZITHROMAX Z-EARNEST 250 MG TABS 2 today and then 1 daily for 4 days AZITHROMYCIN 19831954853 No Longer Active Vishal Hui MD Active DICLOFENAC POTASSIUM TABS Take 1 tablet twice a day (pt. is not sure of the dose.) DICLOFENAC POTASSIUM TABS 20471396415 No Longer Active Vishal Hui MD Active VERAPAMIL HCL ER 120 MG ORAL CR-TABS Take 1 tablet by mouth twice a day. VERAPAMIL HCL 92713196833 Active Vishal Hui MD Active FLAGYL 500 MG TAB 1 tablet by mouth bid METRONIDAZOLE 66841867010 No Longer Active Vishal Hui MD Active VALIUM 5 MG TAB Take 1-2 tablets daily DIAZEPAM 32980975343 No Longer Active Fabiola Johnson APRN Active METOPROLOL TARTRATE 25 MG ORAL TABS 1/2 tablet twice daily for heart rate and blood pressure METOPROLOL TARTRATE 49501754676 No Longer Active Fabiola Johnson APRN Active MIRALAX PACK 1 po qd PRN Constipation POLYETHYLENE GLYCOL 3350 92563531129 No Longer Active Ahmet Carbajal MD Active MINIPRESS 2 MG CAPS 4 cap po at night PRAZOSIN HCL 72570416712 No Longer Active Ahmet Carbajal MD Active PIROXICAM 20 MG CAPS 1 cap po qd PRN Pain PIROXICAM 22790631786 No Longer Active Ahmet Carbajal MD Active TRAMADOL HCL 50 MG TABS 1-2 po TID PRN Pain TRAMADOL HCL 31423535588 No Longer Active Ahmet Carbajal MD Active METOPROLOL TARTRATE 50 MG TAB 1 po bid METOPROLOL TARTRATE 98820302481 No Longer Active Ahmet Carbajal MD Active ABILIFY 15 MG ORAL TABS 1 tab daily ARIPIPRAZOLE 39036301257 No Longer Active Ahmet Carbajal MD Active PROZAC 20 MG ORAL CAPS 1 tab daily FLUOXETINE HCL 05992256490 No Longer Active Ahmet Carbajal MD Active AMBIEN 5 MG ORAL TABS 1 tab at bedtime ZOLPIDEM TARTRATE 26001283529 No Longer Active Ahmet Carbajal MD Active PREDNISONE 20 MG TAB 2 tabs daily for 4 days, 1 tab daily for 4 days, 1/2 tab daily for 4 days PREDNISONE 78722950219 No Longer Active Ahmet Carbajal MD Active KEFLEX 500 MG CAP 1 po TID x 10 days CEPHALEXIN 18294966809 No Longer Active Vishal Hui MD Active SAPHRIS 5 MG SUBL 1 po bid ASENAPINE MALEATE 81981303698 No Longer Active Luigi Martínez APRN Active LATUDA 80 MG TABS Take one by mouth daily LURASIDONE HCL 83055390607 No Longer Active Jillina Fralebron NORIEGA Active AMLODIPINE BESYLATE 5 MG TABS 1 tablet by mouth daily AMLODIPINE BESYLATE 54374324086 No Longer Active Jillina Fralebron DECORATOR STORE Active AMITRIPTYLINE HCL 100 MG TAB one at hs AMITRIPTYLINE HCL 46764101515 No Longer Active Vishal Hui MD Active TRAZODONE HCL 100 MG TAB take 1 at bedtime TRAZODONE HCL 93877751666 No Longer Active Vishal Hui MD Active VYVANSE 40 MG CAPS 1 daily, LISDEXAMFETAMINE DIMESYLATE 42406559171 No Longer Active Vishal Hui MD Active IBUPROFEN 600 MG TAB 1 po TID PRN IBUPROFEN 32011771201 No Longer Active Vishal Hui MD Active PROZAC 20 MG CAP Take one by mouth daily FLUOXETINE HCL 03048917469 No Longer Active Vishal Hui MD Active BACTRIM DS 800-160 MG TABS 1 pill by mouth twice daily SULFAMETHOXAZOLE-TRIMETHOPRIM 17867599795 No Longer Active Sahara Rodriguez MD PhD Active DIFLUCAN 150 MG TAB 1 tablet by mouth daily FLUCONAZOLE 32356738595 No Longer Active Vishal Hui MD Active TIZANIDINE HCL 4 MG TABS 1 po q6hr PRN Muscle Spasm/Back Pain TIZANIDINE HCL 41315725420 Active TAMARA Casey Active CLINDAMYCIN HCL 150 MG CAPS 1 four times a day CLINDAMYCIN HCL 12489830248 No Longer Active Neeraj Collins MD Active KEFLEX 500 MG ORAL CAPS 1 cap QID by mouth CEPHALEXIN 32837975189 No Longer Active Neeraj Collins MD Active DIFLUCAN 150 MG TABS 1 pill every other day x 2 doses FLUCONAZOLE 49144512203 No Longer Active Sahara Rodriguez MD PhD Active MELATONIN 3 MG CAPS 2 po q hs MELATONIN 65556400150 No Longer Active Sahara Rodriguez MD PhD Active MULTIVITAMINS CAPS Take one by mouth daily MULTIPLE VITAMIN 12206904274 No Longer Active Sahara Rodriguez MD PhD Active BACTRIM DS 800-160 MG TAB 1 tab by mouth twice daily TRIMETHOPRIM-SULFAMETHOXAZOLE 16291540145 No Longer Active Sahara Rodriguez MD PhD Active [facility] PROBIOTIC ORAL CHEW 2 daily po PROBIOTIC PRODUCT 01653732384 No Longer Active Sahara Rodriguez MD PhD Active BACTRIM DS 800-160 MG TABS 1 po BID x 7 days SULFAMETHOXAZOLE-TRIMETHOPRIM 82172169242 No Longer Active Vishal Hui MD Active CHANTIX STARTING MONTH EARNEST 0.5 MG X 11 & 1 MG X 42 TABS 0.5mg daily for 3 days , then 0.5mg BID for 4 days, then 1mg BID VARENICLINE TARTRATE 26925815873 No Longer Active TAMARA Gray Active VERAPAMIL HCL CR 120 MG TAB CR 1 po bid VERAPAMIL HCL 12654512282 No Longer Active Vishal Hui MD Active METOPROLOL SUCCINATE 50 MG TB24 1 tablet by mouth daily METOPROLOL SUCCINATE 73061632050 No Longer Active Vishal Hui MD Active SAPHRIS 10 MG SUBL 1 tab po bid ASENAPINE MALEATE 12313854626 No Longer Active Vishal Hui MD Active LISINOPRIL 20 MG TABS 1 tab po qd LISINOPRIL 87746648634 No Longer Active Vishal Hui MD Active LATUDA 20 MG TABS Take one by mouth daily LURASIDONE HCL 89236255169 No Longer Active Vishal Hui MD Active TRAZODONE HCL 50 MG TABS 1/2 tab po qd prn for anxiety TRAZODONE HCL 08806567497 No Longer Active Vishal Hui MD Active OMEPRAZOLE 20 MG TBEC 1 po q a.m. 30min prior to first food intake OMEPRAZOLE 68099324387 Active TAMARA Casey Active RANITIDINE HCL 150 MG CAPS 1 twice a day RANITIDINE HCL 70854494318 Active Lynda Xiao LPN Active LINZESS 290 MCG CAPS Take one by mouth daily LINACLOTIDE 68419722469 No Longer Active Vishal Hui MD Active SAPHRIS 5 MG SUBL 1 tab po qd ASENAPINE MALEATE 72537429870 No Longer Active Vishal Hui MD Active ZALEPLON 10 MG CAPS 1 cap po every other night ZALEPLON 47752472639 No Longer Active Vishal Hui MD Active LYRICA 50 MG CAPS 1 tab po TID PREGABALIN 89663344857 No Longer Active Vishal Hui MD Active LORATADINE 10 MG TABS 1 tab po qd LORATADINE 20489532369 No Longer Active Vishal Hui MD Active VERAPAMIL HCL ER 180 MG CR-TABS 1 tab po bid VERAPAMIL HCL 98305002159 No Longer Active Vishal Hui MD Active MIRALAX POWD 1 capfull once daily POLYETHYLENE GLYCOL 3350 80965146940 No Longer Active Vishal Hui MD Active PREDNISONE 20 MG TABS 1 tab po qd PREDNISONE 69636850972 No Longer Active Renzo Thornton DO Active LEVOFLOXACIN 500 MG TABS 1 tab po qd LEVOFLOXACIN 36192631778 No Longer Active Renzo Thornton DO Active BUSPIRONE HCL 15 MG TABS 1 tab po TID BUSPIRONE HCL 30245089674 No Longer Active Renzo Thornton DO Active BENZTROPINE MESYLATE 1 MG TABS 1 tab po qd BENZTROPINE MESYLATE 60929615742 No Longer Active Renzo Thornton DO Active ATENOLOL 25 MG TABS 1 tab po qd ATENOLOL 46193222937 No Longer Active Renzo Thornton DO Active ESCITALOPRAM OXALATE 20 MG TABS 1 tab po qd ESCITALOPRAM OXALATE 40365285418 No Longer Active Renzo Thornton DO Active ADVAIR DISKUS 250-50 MCG/DOSE AEPB 1 puff BID FLUTICASONE-SALMETEROL 27129571259 No Longer Active Renzo Thornton DO Active PREDNISONE 20 MG TAB 2 tabs daily for 3 days, 1 tab daily for 3 days, 1/2 tab daily for 2 days PREDNISONE 05633867389 No Longer Active Vishal Hui MD Active CEFDINIR 300 MG CAPS by mouth twice a day CEFDINIR 58933963878 No Longer Active Vishal Hui MD Active LANSOPRAZOLE 30 MG CPDR 1 cap po qd LANSOPRAZOLE 75707241128 No Longer Active Vishal Hui MD Active BACLOFEN 20 MG TABS 1 tab po tid BACLOFEN 23522906542 No Longer Active Vishal Hui MD Active ADVAIR DISKUS 250-50 MCG/DOSE AEPB 1 puff BID ADVAIR DISKUS 250-50 MCG/DOSE AEPB FLUTICASONE-SALMETEROL Inactive ESCITALOPRAM OXALATE 20 MG TABS 1 tab po qd ESCITALOPRAM OXALATE 20 MG TABS 075751 ESCITALOPRAM OXALATE Inactive ATENOLOL 25 MG TABS 1 tab po qd ATENOLOL 25 MG TABS 569829 ATENOLOL Inactive BENZTROPINE MESYLATE 1 MG TABS 1 tab po qd BENZTROPINE MESYLATE 1 MG TABS 063783 BENZTROPINE MESYLATE Inactive BUSPIRONE HCL 15 MG TABS 1 tab po TID BUSPIRONE HCL 15 MG TABS 715952 BUSPIRONE HCL Inactive LEVOFLOXACIN 500 MG TABS 1 tab po qd LEVOFLOXACIN 500 MG TABS 114220 LEVOFLOXACIN Inactive PREDNISONE 20 MG TABS 1 tab po qd PREDNISONE 20 MG TABS 996439 PREDNISONE Inactive MIRALAX POWD 1 capfull once daily MIRALAX POWD 273750 POLYETHYLENE GLYCOL 3350 Inactive VERAPAMIL HCL ER 180 MG CR-TABS 1 tab po bid VERAPAMIL HCL ER 180 MG CR-TABS VERAPAMIL HCL Inactive LORATADINE 10 MG TABS 1 tab po qd LORATADINE 10 MG TABS 172235 LORATADINE Inactive LYRICA 50 MG CAPS 1 tab po TID LYRICA 50 MG CAPS PREGABALIN Inactive ZALEPLON 10 MG CAPS 1 cap po every other night ZALEPLON 10 MG CAPS 528606 ZALEPLON Inactive SAPHRIS 5 MG SUBL 1 tab po qd SAPHRIS 5 MG SUBL ASENAPINE MALEATE Inactive TRAZODONE HCL 50 MG TABS 1/2 tab po qd prn for anxiety TRAZODONE HCL 50 MG TABS 903470 TRAZODONE HCL Inactive LATUDA 20 MG TABS Take one by mouth daily LATUDA 20 MG TABS LURASIDONE HCL Inactive LISINOPRIL 20 MG TABS 1 tab po qd LISINOPRIL 20 MG TABS 575728 LISINOPRIL Inactive SAPHRIS 10 MG SUBL 1 [...] twice daily BACTRIM DS 800-160 MG TAB 178440 TRIMETHOPRIM-SULFAMETHOXAZOLE Inactive MULTIVITAMINS CAPS Take one by mouth daily MULTIVITAMINS CAPS MULTIPLE VITAMIN Inactive MELATONIN 3 MG CAPS 2 po q hs MELATONIN 3 MG CAPS 19950526 MELATONIN Inactive KEFLEX 500 MG ORAL CAPS 1 cap QID by mouth KEFLEX 500 MG ORAL CAPS 583082 CEPHALEXIN Inactive CLINDAMYCIN HCL 150 MG CAPS 1 four times a day CLINDAMYCIN HCL 150 MG CAPS 727966 CLINDAMYCIN HCL Inactive DIFLUCAN 150 MG TAB 1 tablet by mouth daily DIFLUCAN 150 MG TAB 226993 FLUCONAZOLE Inactive PROZAC 20 MG CAP Take one by mouth daily PROZAC 20 MG CAP 260022 FLUOXETINE HCL Inactive IBUPROFEN 600 MG TAB 1 po TID PRN IBUPROFEN 600 MG TAB 130100 IBUPROFEN Inactive VYVANSE 40 MG CAPS 1 daily, VYVANSE 40 MG CAPS LISDEXAMFETAMINE DIMESYLATE Inactive TRAZODONE HCL 100 MG TAB take 1 at bedtime TRAZODONE HCL 100 MG TAB 891015 TRAZODONE HCL Inactive AMITRIPTYLINE HCL 100 MG TAB one at hs AMITRIPTYLINE HCL 100 MG TAB 487613 AMITRIPTYLINE HCL Inactive AMLODIPINE BESYLATE 5 MG TABS 1 tablet by mouth daily AMLODIPINE BESYLATE 5 MG TABS 458860 AMLODIPINE BESYLATE Inactive LATUDA 80 MG TABS Take one by mouth daily LATUDA 80 MG TABS LURASIDONE HCL Inactive SAPHRIS 5 MG SUBL 1 po bid SAPHRIS 5 MG SUBL ASENAPINE MALEATE Inactive PREDNISONE 20 MG TAB 2 tabs daily for 4 days, 1 tab daily for 4 days, 1/2 tab daily for 4 days PREDNISONE 20 MG TAB 793164 PREDNISONE Inactive AMBIEN 5 MG ORAL TABS 1 tab at bedtime AMBIEN 5 MG ORAL TABS 684521 ZOLPIDEM TARTRATE Inactive PROZAC 20 MG ORAL CAPS 1 tab daily PROZAC 20 MG ORAL CAPS 514250 FLUOXETINE HCL Inactive ABILIFY 15 MG ORAL TABS 1 tab daily ABILIFY 15 MG ORAL TABS 589985 ARIPIPRAZOLE Inactive METOPROLOL TARTRATE 50 MG TAB 1 po bid METOPROLOL TARTRATE 50 MG TAB 614692 METOPROLOL TARTRATE Inactive TRAMADOL HCL 50 MG TABS 1-2 po TID PRN Pain TRAMADOL HCL 50 MG TABS 771992 TRAMADOL HCL Inactive PIROXICAM 20 MG CAPS 1 cap po qd PRN Pain PIROXICAM 20 MG CAPS 912396 PIROXICAM Inactive MINIPRESS 2 MG CAPS 4 cap po at night MINIPRESS 2 MG CAPS 012016 PRAZOSIN HCL Inactive MIRALAX PACK 1 po qd PRN Constipation MIRALAX PACK 881018 POLYETHYLENE GLYCOL 3350 Inactive METOPROLOL TARTRATE 25 MG ORAL TABS 1/2 tablet twice daily for heart rate and blood pressure METOPROLOL TARTRATE 25 MG ORAL TABS 436210 METOPROLOL TARTRATE Inactive VALIUM 5 MG TAB Take 1-2 tablets daily VALIUM 5 MG TAB 616344 DIAZEPAM Inactive FLAGYL 500 MG TAB 1 tablet by mouth bid FLAGYL 500 MG TAB 798103 METRONIDAZOLE Inactive DICLOFENAC POTASSIUM TABS Take 1 tablet twice a day (pt. is not sure of the dose.) DICLOFENAC POTASSIUM TABS DICLOFENAC POTASSIUM TABS Inactive ZITHROMAX Z-EARNEST 250 MG TABS 2 today and then 1 daily for 4 days ZITHROMAX Z-EARNEST 250 MG TABS 1671904 AZITHROMYCIN Inactive PREDNISONE 20 MG TABS 2 daily for 5 days then 1 daily for 5 days PREDNISONE 20 MG TABS 788251 PREDNISONE Inactive PROAIR HFA 108 (90 BASE) MCG/ACT AERS 2 puffs four times a day as needed 2015 PROAIR HFA 108 (90 BASE) MCG/ACT AERS ALBUTEROL SULFATE Inactive HYDROCODONE-ACETAMINOPHEN 5-325 MG TABS 1 to 2 four times a day as needed for pain use until can be seen by specialist HYDROCODONE- ACETAMINOPHEN 5-325 MG TABS 008969 HYDROCODONE-ACETAMINOPHEN Inactive TESSALON PERLES 100 MG CAP 1 to 2 tablets by mouth 3 times daily as needed for cough TESSALON PERLES 100 MG CAP 917254 BENZONATATE Inactive CHANTIX STARTING MONTH EARNEST 0.5 [...] Pain 2015 DICLOFENAC SODIUM 50 MG TBEC 940541 DICLOFENAC SODIUM Inactive TOPAMAX 50 MG ORAL TABS 1 tab twice daily TOPAMAX 50 MG ORAL TABS 970935 TOPIRAMATE Inactive VIIBRYD 10 MG ORAL TABS Take 1 tablet once a day VIIBRYD 10 MG ORAL TABS VILAZODONE HCL Inactive LEVOFLOXACIN 500 MG ORAL TABS po daily LEVOFLOXACIN 500 MG ORAL TABS 181715 LEVOFLOXACIN Inactive METHYLPREDNISOLONE 4 MG ORAL TABS po daily METHYLPREDNISOLONE 4 MG ORAL TABS 700080 METHYLPREDNISOLONE Inactive OXYCODONE HCL ER 10 MG ORAL T12A 1/2 tab by mouth every 4 hours prn OXYCODONE HCL ER 10 MG ORAL T12A OXYCODONE HCL Inactive FLAGYL 500 MG TAB 1 tablet by mouth bid FLAGYL 500 MG TAB 284422 METRONIDAZOLE Inactive MONISTAT 7 COMBO PACK WOODROW 100 & 2 MG-% (9GM) VAG KIT 1 applicatorful per vagina q pm x 7 MONISTAT 7 COMBO PACK WOODROW 100 & 2 MG-% (9GM) VAG KIT MICONAZOLE NITRATE Inactive BACTRIM DS 800-160 MG TABS 1 twice a day BACTRIM DS 800-160 MG TABS 090437 SULFAMETHOXAZOLE-TRIMETHOPRIM Inactive TRAMADOL HCL 50 MG TABS 1/2-1 tab TID PRN TRAMADOL HCL 50 MG TABS 775711 TRAMADOL HCL Inactive ABILIFY MAINTENA 400 MG IM SUSR 400mg injection every 26 days ABILIFY MAINTENA 400 MG IM SUSR ARIPIPRAZOLE Inactive KLONOPIN 1 MG ORAL TABS 1 tab po TID KLONOPIN 1 MG ORAL TABS 083413 CLONAZEPAM Inactive ADVAIR DISKUS 250-50 MCG/DOSE INH AEPB 1 puff twice a day for asthma ADVAIR DISKUS 250-50 MCG/DOSE INH AEPB FLUTICASONE- SALMETEROL Inactive BENADRYL 25 MG CAP 4 po at bedtime for insomnia BENADRYL 25 MG CAP DIPHENHYDRAMINE HCL Inactive PREDNISONE 20 MG TABS 2 daily for 5 days then 1 daily for 5 days PREDNISONE 20 MG TABS 785207 PREDNISONE Inactive HYDROCODONE-ACETAMINOPHEN 5-325 MG ORAL TABS 1 tab two times a day HYDROCODONE-ACETAMINOPHEN 5-325 MG ORAL TABS 423799 HYDROCODONE-ACETAMINOPHEN Inactive ZITHROMAX Z-EARNEST 250 MG TABS 2 today and then 1 daily for 4 days ZITHROMAX Z-EARNEST 250 MG TABS 4910880 AZITHROMYCIN Inactive GUAIFENESIN-CODEINE 100-10 MG/5ML SYRP 5ml every 4 to 6 hours as needed for cough GUAIFENESIN-CODEINE 100-10 MG/5ML SYRP [id number] GUAIFENESIN-CODEINE Inactive HALOPERIDOL 10 MG ORAL TABS 1 tab q.d HALOPERIDOL 10 MG ORAL TABS [id number] HALOPERIDOL Inactive ASPIRIN 325 MG ORAL TABS 1 tab q.d ASPIRIN 325 MG ORAL TABS [id number] ASPIRIN Inactive FLUTICASONE PROPIONATE 50 MCG/ACT SUSP 2 sprays each nostril daily before bed. FLUTICASONE PROPIONATE 50 MCG/ACT SUSP [id number] FLUTICASONE PROPIONATE Inactive ZOFRAN 4 MG TABS 1 po q6hr PRN Nausea ZOFRAN 4 MG TABS [id number] ONDANSETRON HCL Inactive KEFLEX 500 MG CAP 1 po qid KEFLEX 500 MG CAP [id number] CEPHALEXIN Inactive ACETAMINOPHEN-CODEINE 120-12 MG/5ML SOLN 5 ml by mouth every 4-6 hours if needed for cough ACETAMINOPHEN-CODEINE 120-12 MG/5ML SOLN 722979 ACETAMINOPHEN-CODEINE Inactive PREDNISONE 20 MG TAB 1 tablet daily x 4 days PREDNISONE 20 MG TAB 121854 PREDNISONE Inactive TROPICAMIDE 0.5 % OPHTH SOLN 1 drop PRN eye spasms TROPICAMIDE 0.5 % OPHTH SOLN 114032 TROPICAMIDE Inactive LEVAQUIN 500 MG TABS 1 daily for infection LEVAQUIN 500 MG TABS 291615 LEVOFLOXACIN Inactive PREDNISONE 10 MG TABS 2 daily for 5 days then 1 daily for 5 days PREDNISONE 10 MG TABS 331593 PREDNISONE Inactive EQ NICOTINE 21 MG/24HR TRANS [...] for cough TESSALON PERLES 100 MG CAPS 741717 BENZONATATE Inactive AMITIZA 8 MCG ORAL CAPS 1 tab BID AMITIZA 8 MCG ORAL CAPS LUBIPROSTONE Inactive LINZESS 290 MCG ORAL CAPS 1 tab 30 min prior to first meal each day. LINZESS 290 MCG ORAL CAPS LINACLOTIDE Inactive DIFLUCAN 150 MG TABS 1 by mouth for yeast DIFLUCAN 150 MG TABS 714452 FLUCONAZOLE Inactive BACTRIM DS 800-160 MG TABS 1 twice a day BACTRIM DS 800-160 MG TABS 19820521 SULFAMETHOXAZOLE-TRIMETHOPRIM Inactive MUPIROCIN 2 % OINT apply twice a day MUPIROCIN 2 % OINT 552061 MUPIROCIN Inactive BACTRIM DS 800-160 MG TAB Take one (1) tablet by mouth twice a day for 5 days BACTRIM DS 800-160 MG TAB 19820521 TRIMETHOPRIM- SULFAMETHOXAZOLE Inactive LACTULOSE 10 GM/15ML ORAL SOLN 30mL oral BID for IBS-C LACTULOSE 10 GM/15ML ORAL SOLN 888469 LACTULOSE Inactive MIRALAX ORAL POWD 17GMS DAILY IN WATER MIRALAX ORAL POWD 251150 POLYETHYLENE GLYCOL 3350 Inactive BACTRIM DS 800-160 MG TABS 1 twice a day BACTRIM DS 800-160 MG TABS 19820521 SULFAMETHOXAZOLE-TRIMETHOPRIM Inactive NYSTATIN 460296 UNIT/GM CREA apply three times a day to yeast rash NYSTATIN 081104 UNIT/GM CREA 519220 NYSTATIN Inactive CEFDINIR 300 MG CAPS by mouth twice a day CEFDINIR 300 MG CAPS 224695 CEFDINIR Inactive PREDNISONE 20 MG TAB 2 tabs daily for 3 days, 1 tab daily for 3 days, 1/2 tab daily for 2 days PREDNISONE 20 MG TAB 543119 PREDNISONE Inactive BACTRIM DS 800-160 MG TABS 1 po BID x 7 days BACTRIM DS 800-160 MG TABS 19820521 SULFAMETHOXAZOLE-TRIMETHOPRIM Inactive DIFLUCAN 150 MG TABS 1 pill every other day x 2 doses DIFLUCAN 150 MG TABS 866490 FLUCONAZOLE Inactive BACTRIM DS 800-160 MG TABS 1 pill by mouth twice daily BACTRIM DS 800-160 MG TABS 19820521 SULFAMETHOXAZOLE-TRIMETHOPRIM Inactive KEFLEX 500 MG CAP 1 po TID x 10 days KEFLEX 500 MG CAP 630039 CEPHALEXIN Inactive Advance Directives Directive Description Start [...] % 11.0-15.0 platelet count 443 THOUSAND/UL 10*3/mm3 947-829 4063/03/01 mean platelet volume 8.2 fL 7.5-12.5 leukocyte [...] % 11.0-15.0 platelet count 349 THOUSAND/UL 10*3/mm3 405-347 9121/04/12 mean platelet volume 8.4 fL 7.5-12.5 Lab Report: CBC W/DIFF, Comp. Metabolic Panel, HGBA1C, Magnesium - Chemistry sodium, serum 141 mmol/L 432-016 3916/07/24 carbon dioxide, venous blood 27.8 mmol/L 21.0-32.0 [...] 369 10^3/MM^3 10*3/mm3 142-424 Lab Report: Chlamydia/GC APTIMA/69076 - Lab chlamydia DNA probe NOT DETECTED NOT DETECTED Lab Report: Chlamydia/GC APTIMA/74259 - Microbiology Neisseria gonorrhoeae DNA probe NOT DETECTED NOT DETECTED Lab Report: Chlamydia/GC APTIMA/28528, Urinalysis, Complete, with Reflex ... - Lab chlamydia DNA probe NOT DETECTED NOT DETECTED Lab Report: Chlamydia/GC APTIMA/26299, Urinalysis, Complete, with Reflex ... - Microbiology Neisseria gonorrhoeae DNA probe NOT DETECTED NOT DETECTED Lab Report: Chlamydia/GC APTIMA/25229, Urinalysis, Complete, with Reflex ... - Urinalysis microalbumin/total urine volume 2 mg/L Units converted. See lab report for original value. microalbumin/creatinine ratio, urine 9 MCG/MG CREAT mg/L <30 Lab Report: Comp. Metabolic Panel - Chemistry sodium, serum 140 mmol/L 316-505 4884/06/28 carbon dioxide, venous blood 23.8 mmol/L 21.0-32.0 [...] negative Encounters Code Encounter Date Provider Facility CPT-38014 Level 5 Est. Patient 12:01:37 CDT Maude Miranda [facility] CPT-88316 Level 3 Est. Patient 11:36:47 [facility]-92238 Level 3 Est. Patient 10:53:17 [facility] [place] CPT-85191 Level 3 Est. Patient 11:08:35 [facility] [place] CPT-76518 Level 3 Est. Patient 15:55:20 CDT Suzan Boo [facility] CPT-12139 Level 4 Est. Patient 10:49:34 CDT Suzan Boo [facility] CPT-44850 Level 3 Est. Patient 10:00:25 [facility] [place] CPT-97747 Level 3 Est. Patient 10:29:30 CDT Suzan Boo [facility] CPT-39216 Level 3 Est. Patient 11:04:38 CDT Renzo Thornton [facility]-86275 Level 3 Est. Patient 11:15:58 GENERALIST Renzo Thornton [facility]-62854 Level 3 Est. Patient 15:28:23 GENERALIST Suzan Boo [facility]-56409 Level 4 Est. Patient 10:20:54 GENERALIST Suzan Boo [facility] CPT-32728 Level 3 Est. Patient 11:47:37 GENERALIST Ahmet Carbajal MD [facility]-31311 Level 3 Est. Patient 10:40:11 GENERALIST Ahmet Carbajal MD [facility] CPT-43626 Level 3 Est. Patient 15:07:06 GENERALIST Neeraj Collins MD [facility] CPT-80945 Level 4 Est. Patient 14:45:00 GENERALIST Ahmet Carbajal MD [facility]-12843 Level 3 Est. Patient 13:59:59 CDT Luigi Martínez [facility] CPT-42623 Level 3 Est. Patient 18:18:53 CDT Neeraj Collins MD [facility] CPT-19740 Level 3 Est. Patient 15:50:44 CDT Vishal Hui MD [facility]-15235 Level 3 Est. Patient 11:36:17 CDT Ahmet Carbajal MD [facility] CPT-68389 Level 3 Est. Patient 13:29:16 CDT Vishal Hui MD [facility] CPT-53979 Level 3 Est. Patient 14:27:52 CDT Neeraj Collins MD [facility] CPT-84572 Level 3 Est. Patient 08:56:03 CDT Luigi Martínez [facility] CPT-06481 Level 4 Est. Patient 12:11:48 CDT Fabiola Johnson [facility] CPT-43059 Level 3 New Patient 16:53:37 CDT Albert Caldera MD [facility] CPT-04763 Level 3 Est. Patient 11:25:49 CDT Renzo Thornton DO [facility] CPT-99694 Level 3 Est. Patient 15:22:01 CDT Ahmet Carbajal MD [facility] CPT-75023 Level 4 Est. Patient 09:00:51 GENERALIST Vishal Hui MD [facility] CPT-72494 Level 3 Est. Patient 11:37:33 GENERALIST Vihsal Hui MD [facility] CPT-99307 Level 3 Est. Patient 08:41:09 GENERALIST Vishal Hui MD [facility] CPT-96407 Level 4 Est. Patient 10:19:35 GENERALIST Vishal Hui MD [facility] CPT-01166 Level 3 Est. Patient 13:35:45 CDT Vishal Hui MD [facility] CPT-91071 Level 4 Est. Patient 10:08:37 CDT Vishal Hui MD [facility] CPT-85917 Level 3 Est. Patient 11:22:10 CDT Vishal Hui MD [facility] CPT-56449 Level 3 Est. Patient 11:03:32 CDT Sahara Rodriguez MD, PhD [facility] CPT-64248 Level 3 Est. Patient 09:41:35 CDT Vishal Hui MD [facility] CPT-29377 Level 3 Est. Patient 12:00:41 CDT Neeraj Collins MD [facility] CPT-39365 Level 3 Est. Patient 09:16:24 CDT Vishal Hui MD [facility] CPT-59210 Level 4 Est. Patient 13:59:09 CDT Neeraj Collins MD [facility] CPT-79872 Level 3 Est. Patient 15:19:43 CDT Renzo Thornton DO [facility] CPT-12408 Level 3 Est. Patient 18:10:26 CDT Sahara Rodriguez MD [facility]-29359 Level 3 Est. Patient 14:49:50 CDT Vishal Hui MD [facility] CPT-90042 Level 4 Est. Patient 18:41:46 CDT Neeraj Collins MD [facility] CPT-51806 Level 4 Est. Patient 09:18:38 GENERALIST Vishal Hui MD [facility] CPT-28984 Level 3 Est. Patient 14:43:55 GENERALIST Vishal Hui MD [facility] CPT-94905 Level 3 Est. Patient 15:26:33 GENERALIST Sahara Rodriguez MD PhD [facility] CPT-17535 Level 3 Est. Patient 10:32:14 GENERALIST Vishal Hui MD [facility] CPT-15245 Level 3 Est. Patient 15:12:52 GENERALIST Vishal Hui MD [facility] CPT-82220 Level 4 Est. Patient 09:19:27 CDT Vishal Hui MD [facility] CPT-47527 Level 3 Est. Patient 15:53:00 CDT Renzo Thornton DO [facility] CPT-01882 Level 3 Est. Patient 15:50:30 CDT Renzo Thornton DO [facility] CPT-62815 Level 3 Est. Patient 16:55:24 CDT Vishal Hui MD [facility] Procedures Code Procedure Name Date Entry Date Standard Description CPT-12571 UA Dip Auto (Floor Use Only) 11:36:47 CDT CPT-31992 Venipuncture Draw Fee 10:53:17 CDT CPT-02297 EKG Trac and Interp - XRAY USE ONLY 15:59:30 CDT 09/13 CPT-48972 Chest 1V Frontal - XRAY USE ONLY 15:59:30 CDT CPT-08341 Venipuncture Draw Fee 15:44:02 CDT CPT-55091 Venipuncture Draw Fee 08:41:12 CDT CPT-83566 Abd compl w upright - XRAY USE ONLY 10:27:59 CDT 06/28 CPT-37317 Smoking Cessation counseling 11:15:58 GENERALIST CPT-G0439 [facility] Annual Wellness Exam 09:30:58 GENERALIST CPT-66582 TSH - LAB USE ONLY 08:50:26 GENERALIST CPT-02747 CBC - LAB USE ONLY 08:50:26 GENERALIST CPT-27269 Venipuncture Draw Fee 08:50:26 GENERALIST CPT-54152 Abx/Therapy Injection 17:34:30 GENERALIST CPT-44686 Nexplanon Removal with Reinsertion 14:09:32 CDT CPT-J7307 Nexplanon (Implant) 14:09:32 CDT CPT-OV Office Visit 14:09:32 CDT CPT-43842 UA w micro - LAB USE ONLY 16:21:13 CDT CPT-56131 [place] Mount - LAB USE ONLY 16:21:13 CDT CPT-29217 First Vx - Ix admin for Medicare patients 14:37:47 CDT CPT-84566 Fluzone Preservative Free Intramuscular Suspension 14:37 :47 CDT CPT-75244 Abx/Therapy Injection 13:54:22 CDT CPT-62174 Abx/Therapy Injection 08:47:09 CDT CPT-72087 Abx/Therapy Injection 13:29:56 CDT CPT-79132 Abx/Therapy Injection 08:36:16 CDT CPT-82771 [place] - LAB USE ONLY 17:44:58 CDT CPT-15522 UA w micro - LAB USE ONLY 17:44:58 CDT CPT-44587 CMP - LAB USE ONLY 17:44:58 CDT CPT-25855 Venipuncture Draw Fee 17:44:58 CDT CPT-31509 Cervical Min 4V - XRAY USE ONLY 09:01:40 CDT CPT-82121 Chest 2V Frontal and Lat - XRAY USE ONLY 11:06:31 CDT CPT-61934 EKG Trac and Interp - XRAY USE ONLY 11:31:43 CDT 08/26 CPT-J3420 Vitamin B12 1000mcg (Cyanocobalamin) 08:10:26 GENERALIST 04/12 CPT-93482 Abx/Therapy Injection 08:10:26 GENERALIST CPT-G0438 Initial Annual Wellness Exam 19:01:01 GENERALIST CPT-J3420 Vitamin B12 1000mcg (Cyanocobalamin) 16:57:46 CDT 08/14 CPT-50191 Recombivax HB Injection Suspension 5 MCG/0.5ML 08:37:50 GENERALIST CPT-26003 Immunization Single Admin 08:37:50 GENERALIST CPT-J3420 Vitamin B12 1000mcg (Cyanocobalamin) 08:32:16 GENERALIST 03/11 CPT-13033 Abx/Therapy Injection 08:32:16 GENERALIST CPT-28756 Chest 2V Frontal and Lat 11:46:38 GENERALIST CPT-44910 Venipuncture Draw Fee 09:12:45 GENERALIST CPT-J3420 Vitamin B12 1000mcg (Cyanocobalamin) 08:50:15 GENERALIST 02/08 CPT-84717 Abx/Therapy Injection 08:50:15 GENERALIST CPT-Cryo Cryotherapy 10:19:35 GENERALIST CPT-000 Give Appropriate Flu Vaccine 09:22:16 CDT CPT-J3420 Vitamin B12 1000mcg (Cyanocobalamin) 19:08:57 CDT 01/11 CPT-08475 Abx/Therapy Injection 19:08:57 CDT CPT-J3420 Vitamin B12 1000mcg (Cyanocobalamin) 08:19:08 CDT 12/11 CPT-12492 Abx/Therapy Injection 08:19:08 CDT CPT-J3420 Vitamin B12 1000mcg (Cyanocobalamin) 14:48:00 CDT 11/09 CPT-23381 Abx/Therapy Injection 14:47:59 CDT CPT-J3420 Vitamin B12 1000mcg (Cyanocobalamin) 08:34:04 CDT 10/09 CPT-47448 Abx/Therapy Injection 08:34:04 CDT CPT-J3420 Vitamin B12 1000mcg (Cyanocobalamin) 09:18:52 CDT 09/11 CPT-10169 Abx/Therapy Injection 09:18:52 CDT CPT-J3420 Vitamin B12 1000mcg (Cyanocobalamin) 08:35:44 CDT 09/04 CPT-97119 Abx/Therapy Injection 08:35:44 CDT CPT-19750 Immunization Single Admin 11:07:16 CDT CPT-02218 Hepatitis B adult IM 11:07:16 CDT CPT-J3420 Vitamin B12 1000mcg (Cyanocobalamin) 11:00:49 CDT 08/28 CPT-J1040 Depo Medrol 80 mg (Methyl Prednisolone Acetate) 11:00: 49 CDT CPT-08224 Abx/Therapy Injection 11:00:49 CDT CPT-J1040 Depo Medrol 80 mg (Methyl Prednisolone Acetate) 09:16: 23 CDT CPT-J3420 Vitamin B12 1000mcg (Cyanocobalamin) 08:27:05 CDT 08/20 CPT-87500 Abx/Therapy Injection 08:27:05 CDT CPT-12659 Recombivax HB Injection Suspension 5 MCG/0.5ML 10:00:41 CDT CPT-79104 Administration single or combination vaccine inc oral 10 :00:41 CDT CPT-28982 Sono transvag pelvis non OB uterus ovaries cervix 16:36: 57 CDT CPT-65974 LS spine comp w obliq 09:50:55 GENERALIST CPT-87209 Abd compl w upright 09:50:55 GENERALIST CPT-J1100 Decadron 4mg (Dexamethasone) 15:51:24 GENERALIST CPT-J1030 Depo Medrol 40 mg (Methyl Prednisolone Acetate) 15:51: 24 GENERALIST CPT-18284 Abx/Therapy Injection 15:51:24 GENERALIST CPT-J1100 Decadron 4mg (Dexamethasone) 15:26:33 GENERALIST CPT-J1030 Depo Medrol 40 mg (Methyl Prednisolone Acetate) 15:26: 33 GENERALIST CPT-70720 Sono retroperitoneal complete kidneys and bladder 17:15: 30 CDT CPT-63913 Abd compl w upright 16:09:25 CDT CPT-J1100 Decadron 8mg (Dexamethasone) 17:07:57 CDT CPT-97261 Abx/Therapy Injection 17:07:57 CDT CPT-J1100 Decadron 8mg (Dexamethasone) 16:55:24 CDT CPT-54932 Chest 2V Frontal and Lat 16:32:44 CDT
--- OUTSIDE RECORDS SUMMARY | 2016-11-04 17:26 | XMS REPORT | Clinical Summary ---
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 Morbid obesity 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 Active Juliet [...] breath Nocturnal hypoxia 799.02 Active Fabiola Johnson TEST FIXTURE ASSEMBLER Hypoxemia Neck pain 723.1 Resolved Vishal [...] fibula Vaginal discharge 623.5 Active Luigi Martínez TEST FIXTURE ASSEMBLER Leukorrhea, not specified as infective DYSURIA [...] Active Ahmet Carbajal MD Generalized anxiety disorder Time Analysis Clerk well woman exam V72.31 Active Suzan Boo TEST FIXTURE ASSEMBLER Routine gynecological examination Bronchitis, acute with mild bronchospasm 466.0 Active Suzan Boo TEST FIXTURE ASSEMBLER Acute bronchitis Fibrocystic breast changes 610.1 Active [...] SOLN 1 drop PRN eye spasms TROPICAMIDE 13348980373 Active Samantha Stephan RMA Active RISPERDAL 4 MG ORAL TABS 1 tab at bedtime RISPERIDONE 31048096869 Active Samantha Stephan RMA Active LEVAQUIN 500 MG TABS 1 daily for infection LEVOFLOXACIN 23015209305 Active Suzan Boo APRN Active TESSALON PERLES 100 MG CAPS 1 three times a day as needed for cough BENZONATATE 82347157116 Active Suzan Boo APRN Active ZOFRAN 4 MG TABS 1 po q6hr PRN Nausea ONDANSETRON HCL No Longer Active Suzan Boo APRN Active FLUTICASONE PROPIONATE 50 MCG/ACT SUSP 2 sprays each nostril daily before bed. FLUTICASONE PROPIONATE 19031307430 No Longer Active Suzan Boo APRN Active ASPIRIN 325 MG ORAL TABS 1 tab q.d ASPIRIN 29184691317 No Longer Active Suzan Boo APRN Active HALOPERIDOL 10 MG ORAL TABS 1 tab q.d HALOPERIDOL 81608237435 No Longer Active Suzan Boo APRN Active GUAIFENESIN-CODEINE 100-10 MG/5ML SYRP 5ml every 4 to 6 hours as needed for cough GUAIFENESIN-CODEINE 58866491100 No Longer Active Suzan Boo APRN Active ZITHROMAX Z-EARNEST 250 MG TABS 2 today and then 1 daily for 4 days AZITHROMYCIN 76116870670 No Longer Active Suzan Boo APRN Active PREDNISONE 10 MG TABS 2 daily for 5 days then 1 daily for 5 days PREDNISONE 93065727671 Active Suzan Boo APRN Active CLONAZEPAM 1 MG ORAL TABS 1 twice a day and an additional 1 tablet every other day as needed for pseudoseizures or anxiety CLONAZEPAM 06528495504 Active Ahmet Carbajal MD Active HYDROCODONE-ACETAMINOPHEN 5-325 MG ORAL TABS 1 tab two times a day HYDROCODONE-ACETAMINOPHEN 47816179959 No Longer Active Ahmet Carbajal MD Active LAMICTAL 100 MG ORAL TABS 1 tab 2 times qd. LAMOTRIGINE 81627796734 Active Ahmet Carbajal MD Active PREDNISONE 20 MG TABS 2 daily for 5 days then 1 daily for 5 days PREDNISONE 67198355833 No Longer Active Ahmet Carbajal MD Active FLUTICASONE PROPIONATE 50 MCG/ACT SUSP 1 to 2 sprays each nostril daily for allergies FLUTICASONE PROPIONATE 51617293959 Active Tila Valenzuela Active BENADRYL 25 MG CAP 4 po at bedtime for insomnia DIPHENHYDRAMINE HCL 49622957108 No Longer Active Ahmet Carbajal MD Active ADVAIR DISKUS 250-50 MCG/DOSE INH AEPB 1 puff twice a day for asthma FLUTICASONE-SALMETEROL 17267219697 No Longer Active Ahmet Carbajal MD Active KLONOPIN 1 MG ORAL TABS 1 tab po TID CLONAZEPAM 97316164974 No Longer Active Ahmet Carbajal MD Active ABILIFY MAINTENA 400 MG IM SUSR 400mg injection every 26 days ARIPIPRAZOLE 37703397734 No Longer Active Ahmet Carbajal MD Active TRAMADOL HCL 50 MG TABS 1/2-1 tab TID PRN TRAMADOL HCL 60701440957 No Longer Active Ahmet Carbajal MD Active BACTRIM DS 800-160 MG TABS 1 twice a day SULFAMETHOXAZOLE- TRIMETHOPRIM 24910738939 No Longer Active Ahmet Carbajal MD Active PROAIR HFA 108 (90 BASE) MCG/ACT AERS 2 puffs four times a day as needed 2015 ALBUTEROL SULFATE 55602702709 Active Ahmet Carbajal MD Active EQ NICOTINE 21 MG/24HR TRANS PT24 Apply daily to stop smoking NICOTINE 11480235247 Active Ahmet Carbajal MD Active MONISTAT 7 COMBO PACK WODOROW 100 & 2 MG-% (9GM) VAG KIT 1 applicatorful per vagina q pm x 7 MICONAZOLE NITRATE 42238039235 No Longer Active Ahmet Carbajal MD Active FLAGYL 500 MG TAB 1 tablet by mouth bid METRONIDAZOLE 33437371461 No Longer Active Ahmet Carbajal MD Active OXYCODONE HCL ER 10 MG ORAL T12A 1/2 tab by mouth every 4 hours prn OXYCODONE HCL 70865254739 No Longer Active Ahmet Carbajal MD Active METHYLPREDNISOLONE 4 MG ORAL TABS po daily METHYLPREDNISOLONE 45649597124 No Longer Active Ahmet Carbajal MD Active LEVOFLOXACIN 500 MG ORAL TABS po daily LEVOFLOXACIN 38489872559 No Longer Active Ahmet Carbajal MD Active VIIBRYD 10 MG ORAL TABS Take 1 tablet once a day VILAZODONE HCL 48104966097 No Longer Active Ahmet Carbajal MD Active TOPAMAX 50 MG ORAL TABS 1 tab twice daily TOPIRAMATE 50280207341 No Longer Active Ahmet Carbajal MD Active DICLOFENAC SODIUM 50 MG TBEC 1 tablet by mouth four times daily PRN Pain 2015 DICLOFENAC SODIUM 51041084485 No Longer Active Ahmet Carbajal MD Active ADZENYS XR-ODT 6.3 MG ORAL TBED 1 tab po daily for ADHD AMPHETAMINE 32304195444 No Longer Active Ahmet Carbajal MD Active CHANTIX 1 MG TABS 1 twice a day to help quit smoking VARENICLINE TARTRATE 89107308360 No Longer Active Dipika Burgos MD Active CHANTIX STARTING MONTH EARNEST 0.5 MG X 11 & 1 MG X 42 TABS take as directed 2015 VARENICLINE TARTRATE 48734395300 No Longer Active Dipika Burgos MD Active TESSALON PERLES 100 MG CAP 1 to 2 tablets by mouth 3 times daily as needed for cough BENZONATATE 90633610678 No Longer Active Luigi Martínez APRN Active IMITREX 50 MG ORAL TABS 0.5 po x 1 PRN Headache. May repeat dose x 1 in 2 hours if needed SUMATRIPTAN SUCCINATE 09488616184 Active Ahmet Carbajal MD Active HYDROCODONE-ACETAMINOPHEN 5-325 MG TABS 1 to 2 four times a day as needed for pain use until can be seen by specialist HYDROCODONE- ACETAMINOPHEN 06254449072 No Longer Active Vishal Hui MD Active PROAIR HFA 108 (90 BASE) MCG/ACT AERS 2 puffs four times a day as needed 2015 ALBUTEROL SULFATE 46356245740 No Longer Active Vishal Hui MD Active PREDNISONE 20 MG TABS 2 daily for 5 days then 1 daily for 5 days PREDNISONE 29213659974 No Longer Active Vishal Hui MD Active ZITHROMAX Z-EARNEST 250 MG TABS 2 today and then 1 daily for 4 days AZITHROMYCIN 72834932057 No Longer Active Vishal Hui MD Active DICLOFENAC POTASSIUM TABS Take 1 tablet twice a day (pt. is not sure of the dose.) DICLOFENAC POTASSIUM TABS 95555532283 No Longer Active Vishal Hui MD Active VERAPAMIL HCL ER 120 MG ORAL CR-TABS Take 1 tablet by mouth twice a day. VERAPAMIL HCL 31945041951 Active Vishal Hui MD Active FLAGYL 500 MG TAB 1 tablet by mouth bid METRONIDAZOLE 88672755652 No Longer Active Vishal Hui MD Active VALIUM 5 MG TAB Take 1-2 tablets daily DIAZEPAM 49051279333 No Longer Active Fabiola Johnson APRN Active METOPROLOL TARTRATE 25 MG ORAL TABS 1/2 tablet twice daily for heart rate and blood pressure METOPROLOL TARTRATE 01972083183 No Longer Active Fabiola Johnson APRN Active MIRALAX ORAL POWD 17GMS DAILY IN WATER POLYETHYLENE GLYCOL 3350 68297467126 Active TAMARA Casey Active MIRALAX PACK 1 po qd PRN Constipation POLYETHYLENE GLYCOL 3350 69570631212 No Longer Active Ahmet Carbajal MD Active MINIPRESS 2 MG CAPS 4 cap po at night PRAZOSIN HCL 04853899254 No Longer Active Ahmet Carbajal MD Active PIROXICAM 20 MG CAPS 1 cap po qd PRN Pain PIROXICAM 64549012698 No Longer Active Ahmet Carbajal MD Active TRAMADOL HCL 50 MG TABS 1-2 po TID PRN Pain TRAMADOL HCL 32795325662 No Longer Active Ahmet Carbajal MD Active METOPROLOL TARTRATE 50 MG TAB 1 po bid METOPROLOL TARTRATE 53024205802 No Longer Active Ahmet Carbajal MD Active ABILIFY 15 MG ORAL TABS 1 tab daily ARIPIPRAZOLE 56655426944 No Longer Active Ahmet Carbajal MD Active PROZAC 20 MG ORAL CAPS 1 tab daily FLUOXETINE HCL 22962251632 No Longer Active Ahmet Carbajal MD Active AMBIEN 5 MG ORAL TABS 1 tab at bedtime ZOLPIDEM TARTRATE 17826297902 No Longer Active Ahmet Carbajal MD Active PREDNISONE 20 MG TAB 2 tabs daily for 4 days, 1 tab daily for 4 days, 1/2 tab daily for 4 days PREDNISONE 82637698197 No Longer Active Ahmet Carbajal MD Active KEFLEX 500 MG CAP 1 po TID x 10 days CEPHALEXIN 10281399709 No Longer Active Vishal Hui MD Active SAPHRIS 5 MG SUBL 1 po bid ASENAPINE MALEATE 47084994166 No Longer Active Jillina Frazell TEST FIXTURE ASSEMBLER Active LATUDA 80 MG TABS Take one by mouth daily LURASIDONE HCL 78888942335 No Longer Active Jillina Frazell TEST FIXTURE ASSEMBLER Active AMLODIPINE BESYLATE 5 MG TABS 1 tablet by mouth daily AMLODIPINE BESYLATE 32456821655 No Longer Active Jillina Frazell TEST FIXTURE ASSEMBLER Active AMITRIPTYLINE HCL 100 MG TAB one at hs AMITRIPTYLINE HCL 39122745937 No Longer Active Vishal Hui MD Active TRAZODONE HCL 100 MG TAB take 1 at bedtime TRAZODONE HCL 94536427193 No Longer Active Vishal Hui MD Active VYVANSE 40 MG CAPS 1 daily, LISDEXAMFETAMINE DIMESYLATE 88077953238 No Longer Active Vishal Hui MD Active IBUPROFEN 600 MG TAB 1 po TID PRN IBUPROFEN 97686435070 No Longer Active Vishal Hui MD Active PROZAC 20 MG CAP Take one by mouth daily FLUOXETINE HCL 49357972875 No Longer Active Vishal Hui MD Active BACTRIM DS 800-160 MG TABS 1 pill by mouth twice daily SULFAMETHOXAZOLE-TRIMETHOPRIM 95533430316 No Longer Active Sahara Rodriguez MD PhD Active DIFLUCAN 150 MG TAB 1 tablet by mouth daily FLUCONAZOLE 05609996270 No Longer Active Vishal Hui MD Active TIZANIDINE HCL 4 MG TABS 1 po q6hr PRN Muscle Spasm/Back Pain TIZANIDINE HCL 33373525205 Active Vishal Hui MD Active CLINDAMYCIN HCL 150 MG CAPS 1 four times a day CLINDAMYCIN HCL 02018545553 No Longer Active Neeraj Collins MD Active KEFLEX 500 MG ORAL CAPS 1 cap QID by mouth CEPHALEXIN 52054995614 No Longer Active Neeraj Collins MD Active DIFLUCAN 150 MG TABS 1 pill every other day x 2 doses FLUCONAZOLE 06462614646 No Longer Active Sahara Rodriguez MD PhD Active MELATONIN 3 MG CAPS 2 po q hs MELATONIN 51260003653 No Longer Active Sahara Rodriguez MD PhD Active MULTIVITAMINS CAPS Take one by mouth daily MULTIPLE VITAMIN 12147718338 No Longer Active Sahara Rodriguez MD PhD Active BACTRIM DS 800-160 MG TAB 1 tab by mouth twice daily TRIMETHOPRIM-SULFAMETHOXAZOLE 94147287074 No Longer Active Sahara Rodriguez MD PhD Active [facility] PROBIOTIC ORAL CHEW 2 daily po PROBIOTIC PRODUCT 04929021054 No Longer Active Sahara Rodriguez MD PhD Active BACTRIM DS 800-160 MG TABS 1 po BID x 7 days SULFAMETHOXAZOLE-TRIMETHOPRIM 73256186179 No Longer Active Vishal Hui MD Active CHANTIX STARTING MONTH EARNEST 0.5 MG X 11 & 1 MG X 42 TABS 0.5mg daily for 3 days , then 0.5mg BID for 4 days, then 1mg BID VARENICLINE TARTRATE 95486906813 No Longer Active TAMARA Gray Active VERAPAMIL HCL CR 120 MG TAB CR 1 po bid VERAPAMIL HCL 53890334689 No Longer Active Vishal Hui MD Active METOPROLOL SUCCINATE 50 MG TB24 1 tablet by mouth daily METOPROLOL SUCCINATE 66492218864 No Longer Active Vishal Hui MD Active SAPHRIS 10 MG SUBL 1 tab po bid ASENAPINE MALEATE 10477550062 No Longer Active Vishal Hui MD Active LISINOPRIL 20 MG TABS 1 tab po qd LISINOPRIL 64703704578 No Longer Active Vishal Hui MD Active LATUDA 20 MG TABS Take one by mouth daily LURASIDONE HCL 31310207908 No Longer Active Vishal Hui MD Active TRAZODONE HCL 50 MG TABS 1/2 tab po qd prn for anxiety TRAZODONE HCL 85136062752 No Longer Active Vishal Hui MD Active OMEPRAZOLE 20 MG TBEC 1 po q a.m. 30min prior to first food intake OMEPRAZOLE 42789990770 Active Vishal Hui MD Active RANITIDINE HCL 150 MG CAPS 1 twice a day RANITIDINE HCL 87475191263 Active Luigi Martínez APRN Active LINZESS 290 MCG CAPS Take one by mouth daily LINACLOTIDE 31806995478 No Longer Active Vishal Hui MD Active SAPHRIS 5 MG SUBL 1 tab po qd ASENAPINE MALEATE 60749503339 No Longer Active Vishal Hui MD Active ZALEPLON 10 MG CAPS 1 cap po every other night ZALEPLON 39427378055 No Longer Active Vishal Hui MD Active LYRICA 50 MG CAPS 1 tab po TID PREGABALIN 87444833956 No Longer Active Vishal Hui MD Active LORATADINE 10 MG TABS 1 tab po qd LORATADINE 66570885722 No Longer Active Vishal Hui MD Active VERAPAMIL HCL ER 180 MG CR-TABS 1 tab po bid VERAPAMIL HCL 97239492342 No Longer Active Vishal Hui MD Active MIRALAX POWD 1 capfull once daily POLYETHYLENE GLYCOL 3350 51729224558 No Longer Active Vishal Hui MD Active PREDNISONE 20 MG TABS 1 tab po qd PREDNISONE 82185907458 No Longer Active Renzo Thornton DO Active LEVOFLOXACIN 500 MG TABS 1 tab po qd LEVOFLOXACIN 98695051432 No Longer Active Renzo Thornton DO Active BUSPIRONE HCL 15 MG TABS 1 tab po TID BUSPIRONE HCL 43924899133 No Longer Active Renzo Thornton DO Active BENZTROPINE MESYLATE 1 MG TABS 1 tab po qd BENZTROPINE MESYLATE 84444753811 No Longer Active Renzo Thornton DO Active ATENOLOL 25 MG TABS 1 tab po qd ATENOLOL 78087895947 No Longer Active Renzo Thornton DO Active ESCITALOPRAM OXALATE 20 MG TABS 1 tab po qd ESCITALOPRAM OXALATE 49341131442 No Longer Active Renzo Thornton DO Active ADVAIR DISKUS 250-50 MCG/DOSE AEPB 1 puff BID FLUTICASONE-SALMETEROL 52922614283 No Longer Active Renzo Thornton DO Active PREDNISONE 20 MG TAB 2 tabs daily for 3 days, 1 tab daily for 3 days, 1/2 tab daily for 2 days PREDNISONE 91673021869 No Longer Active Vishal Hui MD Active CEFDINIR 300 MG CAPS by mouth twice a day CEFDINIR 04586981783 No Longer Active Vishal Hui MD Active LANSOPRAZOLE 30 MG CPDR 1 cap po qd LANSOPRAZOLE 94586493829 No Longer Active Vishal Hui MD Active BACLOFEN 20 MG TABS 1 tab po tid BACLOFEN 50731513607 No Longer Active Vishal Hui MD Active ADVAIR DISKUS 250-50 MCG/DOSE AEPB 1 puff BID ADVAIR DISKUS 250-50 MCG/DOSE AEPB FLUTICASONE-SALMETEROL Inactive ESCITALOPRAM OXALATE 20 MG TABS 1 tab po qd ESCITALOPRAM OXALATE 20 MG TABS 316662 ESCITALOPRAM OXALATE Inactive ATENOLOL 25 MG TABS 1 tab po qd ATENOLOL 25 MG TABS 492488 ATENOLOL Inactive BENZTROPINE MESYLATE 1 MG TABS 1 tab po qd BENZTROPINE MESYLATE 1 MG TABS 262171 BENZTROPINE MESYLATE Inactive BUSPIRONE HCL 15 MG TABS 1 tab po TID BUSPIRONE HCL 15 MG TABS 414006 BUSPIRONE HCL Inactive LEVOFLOXACIN 500 MG TABS 1 tab po qd LEVOFLOXACIN 500 MG TABS 257267 LEVOFLOXACIN Inactive PREDNISONE 20 MG TABS 1 tab po qd PREDNISONE 20 MG TABS 039982 PREDNISONE Inactive MIRALAX POWD 1 capfull once daily MIRALAX POWD 953744 POLYETHYLENE GLYCOL 3350 Inactive VERAPAMIL HCL ER 180 MG CR-TABS 1 tab po bid VERAPAMIL HCL ER 180 MG CR-TABS VERAPAMIL HCL Inactive LORATADINE 10 MG TABS 1 tab po qd LORATADINE 10 MG TABS 994985 LORATADINE Inactive LYRICA 50 MG CAPS 1 tab po TID LYRICA 50 MG CAPS PREGABALIN Inactive ZALEPLON 10 MG CAPS 1 cap po every other night ZALEPLON 10 MG CAPS 129797 ZALEPLON Inactive SAPHRIS 5 MG SUBL 1 tab po qd SAPHRIS 5 MG SUBL ASENAPINE MALEATE Inactive TRAZODONE HCL 50 MG TABS 1/2 tab po qd prn for anxiety TRAZODONE HCL 50 MG TABS 450933 TRAZODONE HCL Inactive LATUDA 20 MG TABS Take one by mouth daily LATUDA 20 MG TABS LURASIDONE HCL Inactive LISINOPRIL 20 MG TABS 1 tab po qd LISINOPRIL 20 MG TABS 832154 LISINOPRIL Inactive SAPHRIS 10 MG SUBL 1 [...] twice daily BACTRIM DS 800-160 MG TAB 980511 TRIMETHOPRIM-SULFAMETHOXAZOLE Inactive MULTIVITAMINS CAPS Take one by mouth daily MULTIVITAMINS CAPS MULTIPLE VITAMIN Inactive MELATONIN 3 MG CAPS 2 po q hs MELATONIN 3 MG CAPS 052633 MELATONIN Inactive KEFLEX 500 MG ORAL CAPS 1 cap QID by mouth KEFLEX 500 MG ORAL CAPS 877582 CEPHALEXIN Inactive CLINDAMYCIN HCL 150 MG CAPS 1 four times a day CLINDAMYCIN HCL 150 MG CAPS 283706 CLINDAMYCIN HCL Inactive DIFLUCAN 150 MG TAB 1 tablet by mouth daily DIFLUCAN 150 MG TAB 771682 FLUCONAZOLE Inactive PROZAC 20 MG CAP Take one by mouth daily PROZAC 20 MG CAP 254358 FLUOXETINE HCL Inactive IBUPROFEN 600 MG TAB 1 po TID PRN IBUPROFEN 600 MG TAB 656014 IBUPROFEN Inactive VYVANSE 40 MG CAPS 1 daily, VYVANSE 40 MG CAPS LISDEXAMFETAMINE DIMESYLATE Inactive TRAZODONE HCL 100 MG TAB take 1 at bedtime TRAZODONE HCL 100 MG TAB 964502 TRAZODONE HCL Inactive AMITRIPTYLINE HCL 100 MG TAB one at hs AMITRIPTYLINE HCL 100 MG TAB 463199 AMITRIPTYLINE HCL Inactive AMLODIPINE BESYLATE 5 MG TABS 1 tablet by mouth daily AMLODIPINE BESYLATE 5 MG TABS 853458 AMLODIPINE BESYLATE Inactive LATUDA 80 MG TABS Take one by mouth daily LATUDA 80 MG TABS LURASIDONE HCL Inactive SAPHRIS 5 MG SUBL 1 po bid SAPHRIS 5 MG SUBL ASENAPINE MALEATE Inactive PREDNISONE 20 MG TAB 2 tabs daily for 4 days, 1 tab daily for 4 days, 1/2 tab daily for 4 days PREDNISONE 20 MG TAB 530515 PREDNISONE Inactive AMBIEN 5 MG ORAL TABS 1 tab at bedtime AMBIEN 5 MG ORAL TABS 947423 ZOLPIDEM TARTRATE Inactive PROZAC 20 MG ORAL CAPS 1 tab daily PROZAC 20 MG ORAL CAPS 134486 FLUOXETINE HCL Inactive ABILIFY 15 MG ORAL TABS 1 tab daily ABILIFY 15 MG ORAL TABS 369697 ARIPIPRAZOLE Inactive METOPROLOL TARTRATE 50 MG TAB 1 po bid METOPROLOL TARTRATE 50 MG TAB 127255 METOPROLOL TARTRATE Inactive TRAMADOL HCL 50 MG TABS 1-2 po TID PRN Pain TRAMADOL HCL 50 MG TABS 485421 TRAMADOL HCL Inactive PIROXICAM 20 MG CAPS 1 cap po qd PRN Pain PIROXICAM 20 MG CAPS 390445 PIROXICAM Inactive MINIPRESS 2 MG CAPS 4 cap po at night MINIPRESS 2 MG CAPS 959516 PRAZOSIN HCL Inactive MIRALAX PACK 1 po qd PRN Constipation MIRALAX PACK 616641 POLYETHYLENE GLYCOL 3350 Inactive METOPROLOL TARTRATE 25 MG ORAL TABS 1/2 tablet twice daily for heart rate and blood pressure METOPROLOL TARTRATE 25 MG ORAL TABS 661737 METOPROLOL TARTRATE Inactive VALIUM 5 MG TAB Take 1-2 tablets daily VALIUM 5 MG TAB 653901 DIAZEPAM Inactive FLAGYL 500 MG TAB 1 tablet by mouth bid FLAGYL 500 MG TAB 647466 METRONIDAZOLE Inactive DICLOFENAC POTASSIUM TABS Take 1 tablet twice a day (pt. is not sure of the dose.) DICLOFENAC POTASSIUM TABS DICLOFENAC POTASSIUM TABS Inactive ZITHROMAX Z-EARNEST 250 MG TABS 2 today and then 1 daily for 4 days ZITHROMAX Z-EARNEST 250 MG TABS 3399688 AZITHROMYCIN Inactive PREDNISONE 20 MG TABS 2 daily for 5 days then 1 daily for 5 days PREDNISONE 20 MG TABS 718079 PREDNISONE Inactive PROAIR HFA 108 (90 BASE) MCG/ACT AERS 2 puffs four times a day as needed 2015 PROAIR HFA 108 (90 BASE) MCG/ACT AERS ALBUTEROL SULFATE Inactive HYDROCODONE-ACETAMINOPHEN 5-325 MG TABS 1 to 2 four times a day as needed for pain use until can be seen by specialist HYDROCODONE- ACETAMINOPHEN 5-325 MG TABS 674933 HYDROCODONE-ACETAMINOPHEN Inactive TESSALON PERLES 100 MG CAP 1 to 2 tablets by mouth 3 times daily as needed for cough TESSALON PERLES 100 MG CAP 619149 BENZONATATE Inactive CHANTIX STARTING MONTH EARNEST 0.5 [...] Pain 2015 DICLOFENAC SODIUM 50 MG TBEC 517503 DICLOFENAC SODIUM Inactive TOPAMAX 50 MG ORAL TABS 1 tab twice daily TOPAMAX 50 MG ORAL TABS 714546 TOPIRAMATE Inactive VIIBRYD 10 MG ORAL TABS Take 1 tablet once a day VIIBRYD 10 MG ORAL TABS VILAZODONE HCL Inactive LEVOFLOXACIN 500 MG ORAL TABS po daily LEVOFLOXACIN 500 MG ORAL TABS 659409 LEVOFLOXACIN Inactive METHYLPREDNISOLONE 4 MG ORAL TABS po daily METHYLPREDNISOLONE 4 MG ORAL TABS 517069 METHYLPREDNISOLONE Inactive OXYCODONE HCL ER 10 MG ORAL T12A 1/2 tab by mouth every 4 hours prn OXYCODONE HCL ER 10 MG ORAL T12A OXYCODONE HCL Inactive FLAGYL 500 MG TAB 1 tablet by mouth bid FLAGYL 500 MG TAB 828785 METRONIDAZOLE Inactive MONISTAT 7 COMBO PACK WOODROW 100 & 2 MG-% (9GM) VAG KIT 1 applicatorful per vagina q pm x 7 MONISTAT 7 COMBO PACK WOODROW 100 & 2 MG-% (9GM) VAG KIT MICONAZOLE NITRATE Inactive BACTRIM DS 800-160 MG TABS 1 twice a day BACTRIM DS 800-160 MG TABS 411820 SULFAMETHOXAZOLE-TRIMETHOPRIM Inactive TRAMADOL HCL 50 MG TABS 1/2-1 tab TID PRN TRAMADOL HCL 50 MG TABS 334049 TRAMADOL HCL Inactive ABILIFY MAINTENA 400 MG IM SUSR 400mg injection every 26 days ABILIFY MAINTENA 400 MG IM SUSR ARIPIPRAZOLE Inactive KLONOPIN 1 MG ORAL TABS 1 tab po TID KLONOPIN 1 MG ORAL TABS 670049 CLONAZEPAM Inactive ADVAIR DISKUS 250-50 MCG/DOSE INH AEPB 1 puff twice a day for asthma ADVAIR DISKUS 250-50 MCG/DOSE INH AEPB FLUTICASONE- SALMETEROL Inactive BENADRYL 25 MG CAP 4 po at bedtime for insomnia BENADRYL 25 MG CAP DIPHENHYDRAMINE HCL Inactive PREDNISONE 20 MG TABS 2 daily for 5 days then 1 daily for 5 days PREDNISONE 20 MG TABS 413454 PREDNISONE Inactive HYDROCODONE-ACETAMINOPHEN 5-325 MG ORAL TABS 1 tab two times a day HYDROCODONE-ACETAMINOPHEN 5-325 MG ORAL TABS 068268 HYDROCODONE-ACETAMINOPHEN Inactive ZITHROMAX Z-EARNEST 250 MG TABS 2 today and then 1 daily for 4 days ZITHROMAX Z-EARNEST 250 MG TABS 5116812 AZITHROMYCIN Inactive GUAIFENESIN-CODEINE 100-10 MG/5ML SYRP 5ml every 4 to 6 hours as needed for cough GUAIFENESIN-CODEINE 100-10 MG/5ML SYRP 754913 GUAIFENESIN-CODEINE Inactive HALOPERIDOL 10 MG ORAL TABS 1 tab q.d HALOPERIDOL 10 MG ORAL TABS 819174 HALOPERIDOL Inactive ASPIRIN 325 MG ORAL TABS 1 tab q.d ASPIRIN 325 MG ORAL TABS 703335 ASPIRIN Inactive FLUTICASONE PROPIONATE 50 MCG/ACT SUSP 2 sprays each nostril daily before bed. FLUTICASONE PROPIONATE 50 MCG/ACT SUSP 4141441 FLUTICASONE PROPIONATE Inactive ZOFRAN 4 MG TABS 1 po q6hr PRN Nausea ZOFRAN 4 MG TABS 261946 ONDANSETRON HCL Inactive CEFDINIR 300 MG CAPS by mouth twice a day CEFDINIR 300 MG CAPS 960710 CEFDINIR Inactive PREDNISONE 20 MG TAB 2 tabs daily for 3 days, 1 tab daily for 3 days, 1/2 tab daily for 2 days PREDNISONE 20 MG TAB 612952 PREDNISONE Inactive BACTRIM DS 800-160 MG TABS 1 po BID x 7 days BACTRIM DS 800-160 MG TABS 19820521 SULFAMETHOXAZOLE-TRIMETHOPRIM Inactive DIFLUCAN 150 MG TABS 1 pill every other day x 2 doses DIFLUCAN 150 MG TABS 503049 FLUCONAZOLE Inactive BACTRIM DS 800-160 MG TABS 1 pill by mouth twice daily BACTRIM DS 800-160 MG TABS 19820521 SULFAMETHOXAZOLE-TRIMETHOPRIM Inactive KEFLEX 500 MG CAP 1 po TID x 10 days KEFLEX 500 MG CAP 881367 CEPHALEXIN Inactive Advance Directives Directive Description Start [...] 369 10^3/MM^3 10*3/mm3 142-424 Lab Report: Chlamydia/GC APTIMA/[id number] - Lab chlamydia DNA probe NOT DETECTED NOT DETECTED Lab Report: Chlamydia/GC APTIMA/[id number] - Microbiology Neisseria gonorrhoeae DNA probe NOT DETECTED NOT DETECTED Lab Report: Chlamydia/GC APTIMA/98972, Urinalysis, Complete, with Reflex ... - Lab chlamydia DNA probe NOT DETECTED NOT DETECTED Lab Report: Chlamydia/GC APTIMA/15095, Urinalysis, Complete, with Reflex ... - Microbiology Neisseria gonorrhoeae DNA probe NOT DETECTED NOT DETECTED Lab Report: Chlamydia/GC APTIMA/07662, Urinalysis, Complete, with Reflex ... - Urinalysis microalbumin/total urine volume 2 mg/L Units converted. See lab report for original value. microalbumin/creatinine ratio, urine 9 MCG/MG CREAT mg/L <30 Lab Report: Comp. Metabolic Panel - Chemistry sodium, serum 142 mmol/L 533-103 0341/06/08 carbon dioxide, venous blood 27.6 mmol/L 21.0-32.0 potassium, serum 4.0 mmol/L 3.5-5.2 chloride, serum 105 mmol/L 98-107 blood glucose 95 mg/dL 65-110 urea nitrogen, blood 8 mg/dL 7-18 creatinine, serum 0.75 mg/dL 0.55-1.30 alanine aminotransferase (SGPT), serum 49 U/L -78 aspartate aminotransferase (SGOT), serum 28 U/L 15-37 calcium, serum 9.4 mg/dL 8.5-10.1 bilirubin, serum, total 0.30 mg/dL 0.00-1.00 sodium, serum 140 mmol/L 249-869 0458/08/08 carbon dioxide, venous blood 33.7 mmol/L 21.0-32.0 [...] mg/dL Encounters Code Encounter Date Provider Facility CPT-96912 Level 3 Est. Patient 15:28:23 STORAGE AND BACKUP ADMINISTRATOR Suzan Boo [facility] CPT-34634 Level 4 Est. Patient 10:20:54 STORAGE AND BACKUP ADMINISTRATOR Suzan Boo [facility] CPT-51165 Level 3 Est. Patient 11:47:37 STORAGE AND BACKUP ADMINISTRATOR Ahmet Carbajal MD [facility] CPT-87600 Level 3 Est. Patient 10:40:11 STORAGE AND BACKUP ADMINISTRATOR Ahmet Carbajal MD [facility] CPT-87314 Level 3 Est. 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 Patient 14:45:00 STORAGE AND BACKUP ADMINISTRATOR Ahmet Carbajal MD [facility] CPT-68203 Level 3 Est. Patient 13:59:59 CDT Luigi Martínez [facility] CPT-38717 Level 3 Est. Patient 18:18:53 CDT Neeraj Collins MD [facility] CPT-73428 Level 3 Est. Patient 15:50:44 CDT Vishal Hui MD [facility] CPT-09292 Level 3 Est. Patient 11:36:17 CDT Ahmet Carbajal MD [facility] CPT-40811 Level 3 Est. Patient 13:29:16 CDT Vishal Hui MD [facility] CPT-77057 Level 3 Est. Patient 14:27:52 CDT Neeraj Collins MD [facility] CPT-11435 Level 3 Est. Patient 08:56:03 CDT Luigi Martínez [facility] CPT-49885 Level 4 Est. Patient 12:11:48 CDT Fabiola Johnson [facility] CPT-56031 Level 3 New Patient 16:53:37 CDT Albert Caldera MD [facility] CPT-64198 Level 3 Est. Patient 11:25:49 CDT Renzo Thornton DO [facility] CPT-50783 Level 3 Est. Patient 15:22:01 CDT Ahmet Carbajal MD [facility] CPT-84141 Level 4 Est. Patient 09:00:51 STORAGE AND BACKUP ADMINISTRATOR Vishal Hui MD [facility] CPT-41013 Level 3 Est. Patient 11:37:33 STORAGE AND BACKUP ADMINISTRATOR Vishal Hui MD [facility] CPT-87380 Level 3 Est. Patient 08:41:09 STORAGE AND BACKUP ADMINISTRATOR Vishal Hui MD [facility] CPT-71003 Level 4 Est. Patient 10:19:35 STORAGE AND BACKUP ADMINISTRATOR Vishal Hui MD [facility] CPT-49803 Level 3 Est. Patient 13:35:45 CDT Vishal Hui MD [facility] CPT-27771 Level 4 Est. Patient 10:08:37 CDT Vishal Hui MD [facility] CPT-44079 Level 3 Est. Patient 11:22:10 CDT Vishal Hui MD [facility] CPT-68665 Level 3 Est. Patient 11:03:32 CDT Sahara Rodriguez MD [facility]-50632 Level 3 Est. Patient 09:41:35 CDT Vishal Hui MD [facility] CPT-89933 Level 3 Est. Patient 12:00:41 CDT Neeraj Collins MD [facility] CPT-93425 Level 3 Est. Patient 09:16:24 CDT Vishal Hui MD [facility] CPT-54411 Level 4 Est. Patient 13:59:09 CDT Neeraj Collins MD [facility] CPT-93935 Level 3 Est. Patient 15:19:43 CDT Renzo Thornton DO [facility] CPT-52481 Level 3 Est. Patient 18:10:26 CDT Sahara Rodriguez MD PhD [facility]-20698 Level 3 Est. Patient 14:49:50 CDT Vishal Hui MD [facility] CPT-70083 Level 4 Est. Patient 18:41:46 CDT Neeraj Collins MD [facility]-88399 Level 4 Est. Patient 09:18:38 STORAGE AND BACKUP ADMINISTRATOR Vishal Hui MD [facility] CPT-41337 Level 3 Est. Patient 14:43:55 STORAGE AND BACKUP ADMINISTRATOR Vishal Hui MD [facility] CPT-32396 Level 3 Est. Patient 15:26:33 STORAGE AND BACKUP ADMINISTRATOR Sahara Rodriguez MD [facility] CPT-16134 Level 3 Est. Patient 10:32:14 STORAGE AND BACKUP ADMINISTRATOR Vishal Hui MD [facility] CPT-33931 Level 3 Est. Patient 15:12:52 STORAGE AND BACKUP ADMINISTRATOR Vishal Hui MD [facility] CPT-03881 Level 4 Est. Patient 09:19:27 CDT Vishal Hui MD [facility] CPT-89220 Level 3 Est. Patient 15:53:00 CDT Renzo Thornton [facility] CPT-76645 Level 3 Est. Patient 15:50:30 CDT Renzo Thornton [facility] CPT-02132 Level 3 Est. Patient 16:55:24 CDT Vishal Hui MD [facility] Procedures Code Procedure Name Date Entry Date Standard Description CPT-G0439 [facility] Annual Wellness Exam 09:30:58 STORAGE AND BACKUP ADMINISTRATOR CPT-57794 TSH - LAB USE ONLY 08:50:26 STORAGE AND BACKUP ADMINISTRATOR CPT-37267 CBC - LAB USE ONLY 08:50:26 STORAGE AND BACKUP ADMINISTRATOR CPT-50835 Venipuncture Draw Fee 08:50:26 STORAGE AND BACKUP ADMINISTRATOR CPT-88855 Abx/Therapy Injection 17:34:30 STORAGE AND BACKUP ADMINISTRATOR CPT-83670 Nexplanon Removal with Reinsertion 14:09:32 CDT CPT-J7307 Nexplanon (Implant) 14:09:32 CDT CPT-OV Office Visit 14:09:32 CDT CPT-37836 UA w micro - LAB USE ONLY 16:21:13 CDT CPT-74940 Wet Mount - LAB USE ONLY 16:21:13 CDT CPT-65925 First Vx - Ix admin for Medicare patients 14:37:47 CDT CPT-05920 Fluzone Preservative Free Intramuscular Suspension 14:37 :47 CDT CPT-14474 Abx/Therapy Injection 13:54:22 CDT CPT-39456 Abx/Therapy Injection 08:47:09 CDT CPT-14688 Abx/Therapy Injection 13:29:56 CDT CPT-48047 Abx/Therapy Injection 08:36:16 CDT CPT-00441 Wet Mount - LAB USE ONLY 17:44:58 CDT CPT-94209 UA w micro - LAB USE ONLY 17:44:58 CDT CPT-89347 CMP - LAB USE ONLY 17:44:58 CDT CPT-98782 Venipuncture Draw Fee 17:44:58 CDT CPT-13200 Cervical Min 4V - XRAY USE ONLY 09:01:40 CDT CPT-65587 Chest 2V Frontal and Lat - XRAY USE ONLY 11:06:31 CDT CPT-77981 EKG Trac and Interp - XRAY USE ONLY 11:31:43 CDT 08/26 CPT-J3420 Vitamin B12 1000mcg (Cyanocobalamin) 08:10:26 STORAGE AND BACKUP ADMINISTRATOR 04/12 CPT-28138 Abx/Therapy Injection 08:10:26 STORAGE AND BACKUP ADMINISTRATOR CPT-G0438 Initial Annual Wellness Exam 19:01:01 STORAGE AND BACKUP ADMINISTRATOR CPT-J3420 Vitamin B12 1000mcg (Cyanocobalamin) 16:57:46 CDT 08/14 CPT-74075 Recombivax HB Injection Suspension 5 MCG/0.5ML 08:37:50 STORAGE AND BACKUP ADMINISTRATOR CPT-77383 Immunization Single Admin 08:37:50 STORAGE AND BACKUP ADMINISTRATOR CPT-J3420 Vitamin B12 1000mcg (Cyanocobalamin) 08:32:16 STORAGE AND BACKUP ADMINISTRATOR 03/11 CPT-69784 Abx/Therapy Injection 08:32:16 STORAGE AND BACKUP ADMINISTRATOR CPT-46437 Chest 2V Frontal and Lat 11:46:38 STORAGE AND BACKUP ADMINISTRATOR CPT-89885 Venipuncture Draw Fee 09:12:45 STORAGE AND BACKUP ADMINISTRATOR CPT-J3420 Vitamin B12 1000mcg (Cyanocobalamin) 08:50:15 STORAGE AND BACKUP ADMINISTRATOR 02/08 CPT-64043 Abx/Therapy Injection 08:50:15 STORAGE AND BACKUP ADMINISTRATOR CPT-Cryo Cryotherapy 10:19:35 STORAGE AND BACKUP ADMINISTRATOR CPT-000 Give Appropriate Flu Vaccine 09:22:16 CDT CPT-J3420 Vitamin B12 1000mcg (Cyanocobalamin) 19:08:57 CDT 01/11 CPT-15037 Abx/Therapy Injection 19:08:57 CDT CPT-J3420 Vitamin B12 1000mcg (Cyanocobalamin) 08:19:08 CDT 12/11 CPT-15359 Abx/Therapy Injection 08:19:08 CDT CPT-J3420 Vitamin B12 1000mcg (Cyanocobalamin) 14:48:00 CDT 11/09 CPT-26285 Abx/Therapy Injection 14:47:59 CDT CPT-J3420 Vitamin B12 1000mcg (Cyanocobalamin) 08:34:04 CDT 10/09 CPT-23695 Abx/Therapy Injection 08:34:04 CDT CPT-J3420 Vitamin B12 1000mcg (Cyanocobalamin) 09:18:52 CDT 09/11 CPT-72549 Abx/Therapy Injection 09:18:52 CDT CPT-J3420 Vitamin B12 1000mcg (Cyanocobalamin) 08:35:44 CDT 09/04 CPT-80412 Abx/Therapy Injection 08:35:44 CDT CPT-08572 Immunization Single Admin 11:07:16 CDT CPT-73766 Hepatitis B adult IM 11:07:16 CDT CPT-J3420 Vitamin B12 1000mcg (Cyanocobalamin) 11:00:49 CDT 08/28 CPT-J1040 Depo Medrol 80 mg (Methyl Prednisolone Acetate) 11:00: 49 CDT CPT-91008 Abx/Therapy Injection 11:00:49 CDT CPT-J1040 Depo Medrol 80 mg (Methyl Prednisolone Acetate) 09:16: 23 CDT CPT-J3420 Vitamin B12 1000mcg (Cyanocobalamin) 08:27:05 CDT 08/20 CPT-24934 Abx/Therapy Injection 08:27:05 CDT CPT-27710 Recombivax HB Injection Suspension 5 MCG/0.5ML 10:00:41 CDT CPT-29765 Administration single or combination vaccine inc oral 10 :00:41 CDT CPT-92695 Sono transvag pelvis non OB uterus ovaries cervix 16:36: 57 CDT CPT-98157 LS spine comp w obliq 09:50:55 STORAGE AND BACKUP ADMINISTRATOR CPT-80978 Abd compl w upright 09:50:55 STORAGE AND BACKUP ADMINISTRATOR CPT-J1100 Decadron 4mg (Dexamethasone) 15:51:24 STORAGE AND BACKUP ADMINISTRATOR CPT-J1030 Depo Medrol 40 mg (Methyl Prednisolone Acetate) 15:51: 24 STORAGE AND BACKUP ADMINISTRATOR CPT-88869 Abx/Therapy Injection 15:51:24 STORAGE AND BACKUP ADMINISTRATOR CPT-J1100 Decadron 4mg (Dexamethasone) 15:26:33 STORAGE AND BACKUP ADMINISTRATOR CPT-J1030 Depo Medrol 40 mg (Methyl Prednisolone Acetate) 15:26: 33 STORAGE AND BACKUP ADMINISTRATOR CPT-59009 Sono retroperitoneal complete kidneys and bladder 17:15: 30 CDT CPT-04989 Abd compl w upright 16:09:25 CDT CPT-J1100 Decadron 8mg (Dexamethasone) 17:07:57 CDT CPT-97960 Abx/Therapy Injection 17:07:57 CDT CPT-J1100 Decadron 8mg (Dexamethasone) 16:55:24 CDT CPT-35028 Chest 2V Frontal and Lat 16:32:44 CDT
--- OUTSIDE RECORDS SUMMARY | 2016-11-04 17:27 | XMS REPORT | Clinical Summary ---
Author Author Admin, E Organization [employer] Address Unknown Phone Unavailable Allergies, Adverse Reactions, [...] MD Anxiety state, unspecified Depression 311 Active Vishla Hui MD Depressive disorder, not elsewhere classified [...] Vishal Hui MD Cellulitis ICD-682.9 Inactive Vishal Hiu MD Pelvic pain ICD-625.9 Inactive Vishal Hui MD Abscess, skin ICD-682.9 Inactive Vishal Hui MD Medication List Medication Instructions Start Date Stop Date Generic Name NDC Status Provider Patient Instruction [facility] PROBIOTIC ORAL CHEW 2 daily po PROBIOTIC PRODUCT 17453676972 Active Jillina Frazell RUBBER FLAP TUBER MACHINE OPERATOR Active IBUPROFEN 600 MG TAB 1 po TID PRN IBUPROFEN 50506578783 Active Jillina Frazell RUBBER FLAP TUBER MACHINE OPERATOR Active BACTRIM DS 800-160 MG TAB 1 tab by mouth twice daily TRIMETHOPRIM-SULFAMETHOXAZOLE 82948662582 Active Neeraj Collins MD Active BACTRIM DS 800-160 MG TABS 1 po BID x 7 days SULFAMETHOXAZOLE-TRIMETHOPRIM 65341297490 No Longer Active Vishal Hui MD Active CHANTIX STARTING MONTH EARNEST 0.5 MG X 11 & 1 MG X 42 TABS 0.5mg daily for 3 days , then 0.5mg BID for 4 days, then 1mg BID VARENICLINE TARTRATE 89222530059 No Longer Active TAMARA Gray Active METOPROLOL TARTRATE 50 MG TAB 1 po bid METOPROLOL TARTRATE 21026099412 Active Vishal Hui MD Active TRAZODONE HCL 100 MG TAB take 1 at bedtime TRAZODONE HCL 21164291089 Active Vishal Hui MD Active AMLODIPINE BESYLATE 5 MG TABS 1 tablet by mouth daily AMLODIPINE BESYLATE 29576048662 Active Vishal Hui MD Active VERAPAMIL HCL CR 120 MG TAB CR 1 po bid VERAPAMIL HCL 92283101483 No Longer Active Vishal Hui MD Active METOPROLOL SUCCINATE 50 MG TB24 1 tablet by mouth daily METOPROLOL SUCCINATE 42842201521 No Longer Active Vishal Hui MD Active TRAMADOL HCL 50 MG TABS 1-2 po TID PRN Pain TRAMADOL HCL 45585722739 Active Vishal Hui MD Active SAPHRIS 5 MG SUBL 1 po bid ASENAPINE MALEATE 66371212301 Active Vishal Hui MD Active SAPHRIS 10 MG SUBL 1 tab po bid ASENAPINE MALEATE 19511199766 No Longer Active Vishal Hui MD Active LISINOPRIL 20 MG TABS 1 tab po qd LISINOPRIL 87680469313 No Longer Active Vishal Hui MD Active BENADRYL 25 MG CAP 2 po tid prn anxiety DIPHENHYDRAMINE HCL 99651022437 Active Vishal Hui MD Active LATUDA 80 MG TABS Take one by mouth daily LURASIDONE HCL 51749458732 Active Vishal Hui MD Active LATUDA 20 MG TABS Take one by mouth daily LURASIDONE HCL 82862019632 No Longer Active Vishal Hui MD Active TRAZODONE HCL 50 MG TABS 1/2 tab po qd prn for anxiety TRAZODONE HCL 44183894975 No Longer Active Vishal Hui MD Active PIROXICAM 20 MG CAPS 1 cap po qd PRN Pain PIROXICAM 93308535276 Active Vishal Hui MD Active OMEPRAZOLE 20 MG TBEC 1 po q a.m. 30min prior to first food intake OMEPRAZOLE 20752981004 Active Vishal Hui MD Active RANITIDINE HCL 150 MG CAPS 1 twice a day RANITIDINE HCL 71534001521 Active Vishal Hui MD Active MULTIVITAMINS CAPS Take one by mouth daily MULTIPLE VITAMIN 79769488405 Active Vishal Hui MD Active MELATONIN 3 MG CAPS 2 po q hs MELATONIN 87322507080 Active Vishal Hui MD Active PROZAC 20 MG CAP Take one by mouth daily FLUOXETINE HCL 78456439760 Active Vishal Hui MD Active LINZESS 290 MCG CAPS Take one by mouth daily LINACLOTIDE 18643945040 Active Vishal Hui MD Active SAPHRIS 5 MG SUBL 1 tab po qd ASENAPINE MALEATE 95636728238 No Longer Active Vishal Hui MD Active ZALEPLON 10 MG CAPS 1 cap po every other night ZALEPLON 01589361367 No Longer Active Vishal Hui MD Active LYRICA 50 MG CAPS 1 tab po TID PREGABALIN 69133600137 No Longer Active Vishal Hui MD Active LORATADINE 10 MG TABS 1 tab po qd LORATADINE 44867079005 No Longer Active Vishal Hui MD Active VERAPAMIL HCL ER 180 MG CR-TABS 1 tab po bid VERAPAMIL HCL 58454155359 No Longer Active Vishal Hui MD Active MIRALAX POWD 1 capfull once daily POLYETHYLENE GLYCOL 3350 10990801681 No Longer Active Vishal Hui MD Active PREDNISONE 20 MG TABS 1 tab po qd PREDNISONE 83458806469 No Longer Active Renzo Thornton DO Active LEVOFLOXACIN 500 MG TABS 1 tab po qd LEVOFLOXACIN 32947326063 No Longer Active Renzo Thornton DO Active BUSPIRONE HCL 15 MG TABS 1 tab po TID BUSPIRONE HCL 91817405622 No Longer Active Renzo Thornton DO Active BENZTROPINE MESYLATE 1 MG TABS 1 tab po qd BENZTROPINE MESYLATE 22474510718 No Longer Active Renzo Thornton DO Active ATENOLOL 25 MG TABS 1 tab po qd ATENOLOL 60362140628 No Longer Active Renzo Thornton DO Active ESCITALOPRAM OXALATE 20 MG TABS 1 tab po qd ESCITALOPRAM OXALATE 43395327482 No Longer Active Renzo Thornton DO Active ADVAIR DISKUS 250-50 MCG/DOSE AEPB 1 puff BID FLUTICASONE-SALMETEROL 14693819591 No Longer Active Renzo Thornton DO Active PREDNISONE 20 MG TAB 2 tabs daily for 3 days, 1 tab daily for 3 days, 1/2 tab daily for 2 days PREDNISONE 36688553359 No Longer Active Vishal Hui MD Active CEFDINIR 300 MG CAPS by mouth twice a day CEFDINIR 39234206606 No Longer Active Vishal Hui MD Active LANSOPRAZOLE 30 MG CPDR 1 cap po qd LANSOPRAZOLE 90823703835 No Longer Active Vishal Hui MD Active TOPAMAX 25 MG TABS 1 tab po bid TOPIRAMATE 83171724625 Active Vishal Hui MD Active MINIPRESS 2 MG CAPS 1 cap po at night PRAZOSIN HCL 69563403399 Active Vishal Hui MD Active BACLOFEN 20 MG TABS 1 tab po tid BACLOFEN 55881384204 Active Vishal Hui MD Active ADVAIR DISKUS 250-50 MCG/DOSE AEPB 1 puff BID ADVAIR DISKUS 250-50 MCG/DOSE AEPB FLUTICASONE-SALMETEROL Inactive ESCITALOPRAM OXALATE 20 MG TABS 1 tab po qd ESCITALOPRAM OXALATE 20 MG TABS 600664 ESCITALOPRAM OXALATE Inactive ATENOLOL 25 MG TABS 1 tab po qd ATENOLOL 25 MG TABS 158999 ATENOLOL Inactive BENZTROPINE MESYLATE 1 MG TABS 1 tab po qd BENZTROPINE MESYLATE 1 MG TABS 562411 BENZTROPINE MESYLATE Inactive BUSPIRONE HCL 15 MG TABS 1 tab po TID BUSPIRONE HCL 15 MG TABS 883453 BUSPIRONE HCL Inactive LEVOFLOXACIN 500 MG TABS 1 tab po qd LEVOFLOXACIN 500 MG TABS 116514 LEVOFLOXACIN Inactive PREDNISONE 20 MG TABS 1 tab po qd PREDNISONE 20 MG TABS 406118 PREDNISONE Inactive MIRALAX POWD 1 capfull once daily MIRALAX POWD 719409 POLYETHYLENE GLYCOL 3350 Inactive VERAPAMIL HCL ER 180 MG CR-TABS 1 tab po bid VERAPAMIL HCL ER 180 MG CR-TABS VERAPAMIL HCL Inactive LORATADINE 10 MG TABS 1 tab po qd LORATADINE 10 MG TABS 119674 LORATADINE Inactive LYRICA 50 MG CAPS 1 tab po TID LYRICA 50 MG CAPS PREGABALIN Inactive ZALEPLON 10 MG CAPS 1 cap po every other night ZALEPLON 10 MG CAPS 438089 ZALEPLON Inactive SAPHRIS 5 MG SUBL 1 tab po qd SAPHRIS 5 MG SUBL ASENAPINE MALEATE Inactive TRAZODONE HCL 50 MG TABS 1/2 tab po qd prn for anxiety TRAZODONE HCL 50 MG TABS 470333 TRAZODONE HCL Inactive LATUDA 20 MG TABS Take one by mouth daily LATUDA 20 MG TABS LURASIDONE HCL Inactive LISINOPRIL 20 MG TABS 1 tab po qd LISINOPRIL 20 MG TABS 612635 LISINOPRIL Inactive SAPHRIS 10 MG SUBL 1 [...] twice a day CEFDINIR 300 MG CAPS 139847 CEFDINIR Inactive PREDNISONE 20 MG TAB 2 tabs daily for 3 days, 1 tab daily for 3 days, 1/2 tab daily for 2 days PREDNISONE 20 MG TAB 299600 PREDNISONE Inactive BACTRIM DS 800-160 MG TABS [...] U/L Chart Maintenance: outside labs entered on [employer] - Hematology leukocyte count, blood 8.9 10*3/mm3 hemoglobin, blood 13.2 g/dL platelet count 364 10*3/mm3 Lab Report: Comp. Metabolic Panel - Chemistry sodium, serum 141 mmol/L [phone] potassium, serum 4.3 mmol/L 3.5-5.2 chloride, serum [...] Panel - Chemistry sodium, serum 139 mmol/L 571-149 1186/12/31 potassium, serum 4.8 mmol/L 3.5-5.2 chloride, serum 106 mmol/L 98-107 carbon dioxide, venous blood 24.3 mmol/L 21.0-32.0 blood glucose 90 mg/dL 65-110 urea nitrogen, blood 16 mg/dL 7-18 creatinine, serum 1.00 mg/dL 0.60-1.30 alanine aminotransferase (SGPT), serum 41 U/L aspartate aminotransferase (SGOT), serum 17 U/L 15-37 calcium, serum 8.6 mg/dL 8.5-10.1 bilirubin, serum, total 0.30 mg/dL 0.00-1.00 cholesterol, serum 108 mg/dL 556-043 8286/12/31 triglyceride, serum, fasting 120 mg/dL 30-200 HDL [...] 5.0-8.5 Encounters Code Encounter Date Provider Facility CPT-51189 Level 3 Est. Patient 14:49:50 CDT Vishal Hui MD [facility] CPT-68530 Level 4 Est. Patient 18:41:46 CDT Neeraj Collins MD [facility] CPT-10955 Level 4 Est. Patient 09:18:38 NUCLEAR PLANT CONSTRUCTION WORKER Vishal Hui MD [facility] CPT-93739 Level 3 Est. Patient 14:43:55 NUCLEAR PLANT CONSTRUCTION WORKER Vishal Hui MD [facility] CPT-47002 Level 3 Est. Patient 15:26:33 NUCLEAR PLANT CONSTRUCTION WORKER Sahara Rodriguez MD PhD [facility] CPT-41603 Level 3 Est. Patient 10:32:14 NUCLEAR PLANT CONSTRUCTION WORKER Vishal Hui MD [facility] CPT-06306 Level 3 Est. Patient 15:12:52 NUCLEAR PLANT CONSTRUCTION WORKER Vishal Hui MD [facility] CPT-72112 Level 4 Est. Patient 09:19:27 CDT Vishal Hui MD [facility] CPT-77190 Level 3 Est. Patient 15:53:00 CDT Renzo Thornton [facility] CPT-02752 Level 3 Est. Patient 15:50:30 CDT Renzo Thornton [facility] CPT-88091 Level 3 Est. Patient 16:55:24 CDT Vishal Hui MD [facility] Procedures Code Procedure Name Date Entry Date Standard Description CPT-21699 Sono transvag pelvis non OB uterus ovaries cervix 16:36: 57 CDT CPT-62897 LS spine comp w obliq 09:50:55 NUCLEAR PLANT CONSTRUCTION WORKER CPT-11425 Abd compl w upright 09:50:55 NUCLEAR PLANT CONSTRUCTION WORKER CPT-J1100 Decadron 4mg (Dexamethasone) 15:51:24 NUCLEAR PLANT CONSTRUCTION WORKER CPT-J1030 Depo Medrol 40 mg (Methyl Prednisolone Acetate) 15:51: 24 NUCLEAR PLANT CONSTRUCTION WORKER CPT-93071 Abx/Therapy Injection 15:51:24 NUCLEAR PLANT CONSTRUCTION WORKER CPT-J1100 Decadron 4mg (Dexamethasone) 15:26:33 NUCLEAR PLANT CONSTRUCTION WORKER CPT-J1030 Depo Medrol 40 mg (Methyl Prednisolone Acetate) 15:26: 33 NUCLEAR PLANT CONSTRUCTION WORKER CPT-79433 Sono retroperitoneal complete kidneys and bladder 17:15: 30 CDT CPT-03568 Abd compl w upright 16:09:25 CDT CPT-J1100 Decadron 8mg (Dexamethasone) 17:07:57 CDT CPT-47569 Abx/Therapy Injection 17:07:57 CDT CPT-J1100 Decadron 8mg (Dexamethasone) 16:55:24 CDT CPT-65259 Chest 2V Frontal and Lat 16:32:44 CDT
--- OUTSIDE RECORDS SUMMARY | 2016-11-04 17:30 | XMS REPORT | Clinical Summary ---
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 V72.31 Active Suzan [...] SOLN 1 drop PRN eye spasms TROPICAMIDE 98852740629 Active Samantha Stephan RMA Active RISPERDAL 4 MG ORAL TABS 1 tab at bedtime RISPERIDONE 52464280208 Active Samantha Stephan RMA Active LEVAQUIN 500 MG TABS 1 daily for infection LEVOFLOXACIN 30600957347 Active Suzan Boo APRN Active TESSALON PERLES 100 MG CAPS 1 three times a day as needed for cough BENZONATATE 93404309863 Active Suzan Boo APRN Active ZOFRAN 4 MG TABS 1 po q6hr PRN Nausea ONDANSETRON HCL No Longer Active Suzan Boo APRN Active FLUTICASONE PROPIONATE 50 MCG/ACT SUSP 2 sprays each nostril daily before bed. FLUTICASONE PROPIONATE 25595593133 No Longer Active Suzan Boo APRN Active ASPIRIN 325 MG ORAL TABS 1 tab q.d ASPIRIN 32287848666 No Longer Active Suzan Boo APRN Active HALOPERIDOL 10 MG ORAL TABS 1 tab q.d HALOPERIDOL 46699722112 No Longer Active Suzan Boo APRN Active GUAIFENESIN-CODEINE 100-10 MG/5ML SYRP 5ml every 4 to 6 hours as needed for cough GUAIFENESIN-CODEINE 51765774493 No Longer Active Suzan Boo APRN Active ZITHROMAX Z-EARNEST 250 MG TABS 2 today and then 1 daily for 4 days AZITHROMYCIN 38601638790 No Longer Active Suzan Boo APRN Active PREDNISONE 10 MG TABS 2 daily for 5 days then 1 daily for 5 days PREDNISONE 01172887736 Active Suzan Boo APRN Active CLONAZEPAM 1 MG ORAL TABS 1 twice a day and an additional 1 tablet every other day as needed for pseudoseizures or anxiety CLONAZEPAM 51897458970 Active Ahmet Carbajal MD Active HYDROCODONE-ACETAMINOPHEN 5-325 MG ORAL TABS 1 tab two times a day HYDROCODONE-ACETAMINOPHEN 81919867357 No Longer Active Ahmet Carbajal MD Active LAMICTAL 100 MG ORAL TABS 1 tab 2 times qd. LAMOTRIGINE 97167659352 Active Ahmet Carbajal MD Active PREDNISONE 20 MG TABS 2 daily for 5 days then 1 daily for 5 days PREDNISONE 42572998917 No Longer Active Ahmet Carbajal MD Active FLUTICASONE PROPIONATE 50 MCG/ACT SUSP 1 to 2 sprays each nostril daily for allergies FLUTICASONE PROPIONATE 27569402755 Active Tila Valenzuela Active BENADRYL 25 MG CAP 4 po at bedtime for insomnia DIPHENHYDRAMINE HCL 76045595493 No Longer Active Ahmet Carbajal MD Active ADVAIR DISKUS 250-50 MCG/DOSE INH AEPB 1 puff twice a day for asthma FLUTICASONE-SALMETEROL 67212047158 No Longer Active Ahmet Carbajal MD Active KLONOPIN 1 MG ORAL TABS 1 tab po TID CLONAZEPAM 86457353854 No Longer Active Ahmet Carbajal MD Active ABILIFY MAINTENA 400 MG IM SUSR 400mg injection every 26 days ARIPIPRAZOLE 48631438994 No Longer Active Ahmet Carbajal MD Active TRAMADOL HCL 50 MG TABS 1/2-1 tab TID PRN TRAMADOL HCL 23565073805 No Longer Active Ahmet Carbajal MD Active BACTRIM DS 800-160 MG TABS 1 twice a day SULFAMETHOXAZOLE- TRIMETHOPRIM 15570685554 No Longer Active Ahmet Carbajal MD Active PROAIR HFA 108 (90 BASE) MCG/ACT AERS 2 puffs four times a day as needed 2015 ALBUTEROL SULFATE 18055322557 Active Ahmet Carbajal MD Active EQ NICOTINE 21 MG/24HR TRANS PT24 Apply daily to stop smoking NICOTINE 47115749214 Active Ahmet Carbajal MD Active MONISTAT 7 COMBO PACK WOODROW 100 & 2 MG-% (9GM) VAG KIT 1 applicatorful per vagina q pm x 7 MICONAZOLE NITRATE 70160101957 No Longer Active Ahmet Carbajal MD Active FLAGYL 500 MG TAB 1 tablet by mouth bid METRONIDAZOLE 16948051621 No Longer Active Ahmet Carbajal MD Active OXYCODONE HCL ER 10 MG ORAL T12A 1/2 tab by mouth every 4 hours prn OXYCODONE HCL 98837982204 No Longer Active Ahmet Carbajal MD Active METHYLPREDNISOLONE 4 MG ORAL TABS po daily METHYLPREDNISOLONE 23839963270 No Longer Active Ahmet Carbajal MD Active LEVOFLOXACIN 500 MG ORAL TABS po daily LEVOFLOXACIN 93586617763 No Longer Active Ahmet Carbajal MD Active VIIBRYD 10 MG ORAL TABS Take 1 tablet once a day VILAZODONE HCL 41412438609 No Longer Active Ahmet Carbajal MD Active TOPAMAX 50 MG ORAL TABS 1 tab twice daily TOPIRAMATE 67120588855 No Longer Active Ahmet Carbajal MD Active DICLOFENAC SODIUM 50 MG TBEC 1 tablet by mouth four times daily PRN Pain 2015 DICLOFENAC SODIUM 23838462969 No Longer Active Ahmet Carbajal MD Active ADZENYS XR-ODT 6.3 MG ORAL TBED 1 tab po daily for ADHD AMPHETAMINE 41706606482 No Longer Active Ahmet Carbajal MD Active CHANTIX 1 MG TABS 1 twice a day to help quit smoking VARENICLINE TARTRATE 13971813749 No Longer Active Dipika Burgos MD Active CHANTIX STARTING MONTH EARNEST 0.5 MG X 11 & 1 MG X 42 TABS take as directed 2015 VARENICLINE TARTRATE 61406088435 No Longer Active Dipika Burgos MD Active TESSALON PERLES 100 MG CAP 1 to 2 tablets by mouth 3 times daily as needed for cough BENZONATATE 10434476381 No Longer Active Luigi Martínez APRN Active IMITREX 50 MG ORAL TABS 0.5 po x 1 PRN Headache. May repeat dose x 1 in 2 hours if needed SUMATRIPTAN SUCCINATE 68101862751 Active Ahmet Carbajal MD Active HYDROCODONE-ACETAMINOPHEN 5-325 MG TABS 1 to 2 four times a day as needed for pain use until can be seen by specialist HYDROCODONE- ACETAMINOPHEN 37341534501 No Longer Active Vishal Hui MD Active PROAIR HFA 108 (90 BASE) MCG/ACT AERS 2 puffs four times a day as needed 2015 ALBUTEROL SULFATE 37510513529 No Longer Active Vishal Hui MD Active PREDNISONE 20 MG TABS 2 daily for 5 days then 1 daily for 5 days PREDNISONE 74649721355 No Longer Active Vishal Hui MD Active ZITHROMAX Z-EARNEST 250 MG TABS 2 today and then 1 daily for 4 days AZITHROMYCIN 78970795845 No Longer Active Vishal Hui MD Active DICLOFENAC POTASSIUM TABS Take 1 tablet twice a day (pt. is not sure of the dose.) DICLOFENAC POTASSIUM TABS 09223788137 No Longer Active Vishal Hui MD Active VERAPAMIL HCL ER 120 MG ORAL CR-TABS Take 1 tablet by mouth twice a day. VERAPAMIL HCL 86162019371 Active Vishal Hui MD Active FLAGYL 500 MG TAB 1 tablet by mouth bid METRONIDAZOLE 03673371872 No Longer Active Vishal Hui MD Active VALIUM 5 MG TAB Take 1-2 tablets daily DIAZEPAM 27378924577 No Longer Active Fabiola Johnson APRN Active METOPROLOL TARTRATE 25 MG ORAL TABS 1/2 tablet twice daily for heart rate and blood pressure METOPROLOL TARTRATE 63053207986 No Longer Active Fabiola Johnson APRN Active MIRALAX ORAL POWD 17GMS DAILY IN WATER POLYETHYLENE GLYCOL 3350 78880108936 Active TAMARA Casey Active MIRALAX PACK 1 po qd PRN Constipation POLYETHYLENE GLYCOL 3350 38217290934 No Longer Active Ahmet Carbajal MD Active MINIPRESS 2 MG CAPS 4 cap po at night PRAZOSIN HCL 64452150535 No Longer Active Ahmet Carbajal MD Active PIROXICAM 20 MG CAPS 1 cap po qd PRN Pain PIROXICAM 25728481979 No Longer Active Ahmet Carbajal MD Active TRAMADOL HCL 50 MG TABS 1-2 po TID PRN Pain TRAMADOL HCL 47182121227 No Longer Active Ahmet Carbajal MD Active METOPROLOL TARTRATE 50 MG TAB 1 po bid METOPROLOL TARTRATE 61186603863 No Longer Active Ahmet Carbajal MD Active ABILIFY 15 MG ORAL TABS 1 tab daily ARIPIPRAZOLE 12653892662 No Longer Active Ahmet Carbajal MD Active PROZAC 20 MG ORAL CAPS 1 tab daily FLUOXETINE HCL 31316253736 No Longer Active Ahmet Carbajal MD Active AMBIEN 5 MG ORAL TABS 1 tab at bedtime ZOLPIDEM TARTRATE 10278819721 No Longer Active Ahmet Carbajal MD Active PREDNISONE 20 MG TAB 2 tabs daily for 4 days, 1 tab daily for 4 days, 1/2 tab daily for 4 days PREDNISONE 39356129542 No Longer Active Ahmet Carbajal MD Active KEFLEX 500 MG CAP 1 po TID x 10 days CEPHALEXIN 30412513885 No Longer Active Vishal Hui MD Active SAPHRIS 5 MG SUBL 1 po bid ASENAPINE MALEATE 76787638340 No Longer Active Luigi Martínez CHIEF NURSE EXECUTIVE Active LATUDA 80 MG TABS Take one by mouth daily LURASIDONE HCL 95026375785 No Longer Active Jillina Fradwightl CHIEF NURSE EXECUTIVE Active AMLODIPINE BESYLATE 5 MG TABS 1 tablet by mouth daily AMLODIPINE BESYLATE 59422298490 No Longer Active Luigi Martínez APRN Active AMITRIPTYLINE HCL 100 MG TAB one at hs AMITRIPTYLINE HCL 47817448479 No Longer Active Vishal Hui MD Active TRAZODONE HCL 100 MG TAB take 1 at bedtime TRAZODONE HCL 43118951566 No Longer Active Vishal Hui MD Active VYVANSE 40 MG CAPS 1 daily, LISDEXAMFETAMINE DIMESYLATE 65378066322 No Longer Active Vishal Hui MD Active IBUPROFEN 600 MG TAB 1 po TID PRN IBUPROFEN 99960483949 No Longer Active Vishal Hui MD Active PROZAC 20 MG CAP Take one by mouth daily FLUOXETINE HCL 86390597867 No Longer Active Vishal Hui MD Active BACTRIM DS 800-160 MG TABS 1 pill by mouth twice daily SULFAMETHOXAZOLE-TRIMETHOPRIM 84214595845 No Longer Active Sahara Rodriguez MD PhD Active DIFLUCAN 150 MG TAB 1 tablet by mouth daily FLUCONAZOLE 05166698094 No Longer Active Vishal Hui MD Active TIZANIDINE HCL 4 MG TABS 1 po q6hr PRN Muscle Spasm/Back Pain TIZANIDINE HCL 43904367621 Active Vishal Hui MD Active CLINDAMYCIN HCL 150 MG CAPS 1 four times a day CLINDAMYCIN HCL 16237818303 No Longer Active Neeraj Collins MD Active KEFLEX 500 MG ORAL CAPS 1 cap QID by mouth CEPHALEXIN 65888218775 No Longer Active Neeraj Collins MD Active DIFLUCAN 150 MG TABS 1 pill every other day x 2 doses FLUCONAZOLE 67203327296 No Longer Active Sahara Rodriguez MD PhD Active MELATONIN 3 MG CAPS 2 po q hs MELATONIN 96161723432 No Longer Active Sahara Rodriguez MD PhD Active MULTIVITAMINS CAPS Take one by mouth daily MULTIPLE VITAMIN 97225787072 No Longer Active Sahara Rodriguez MD PhD Active BACTRIM DS 800-160 MG TAB 1 tab by mouth twice daily TRIMETHOPRIM-SULFAMETHOXAZOLE 22591759496 No Longer Active Sahara Rodriguez MD PhD Active [facility] PROBIOTIC ORAL CHEW 2 daily po PROBIOTIC PRODUCT 48046995085 No Longer Active Sahara Rodriguez MD PhD Active BACTRIM DS 800-160 MG TABS 1 po BID x 7 days SULFAMETHOXAZOLE-TRIMETHOPRIM 93691590282 No Longer Active Vishal Hui MD Active CHANTIX STARTING MONTH EARNEST 0.5 MG X 11 & 1 MG X 42 TABS 0.5mg daily for 3 days , then 0.5mg BID for 4 days, then 1mg BID VARENICLINE TARTRATE 77115482973 No Longer Active TAMARA Gray Active VERAPAMIL HCL CR 120 MG TAB CR 1 po bid VERAPAMIL HCL 87248871906 No Longer Active Vishal Hui MD Active METOPROLOL SUCCINATE 50 MG TB24 1 tablet by mouth daily METOPROLOL SUCCINATE 92095511123 No Longer Active Vishal Hui MD Active SAPHRIS 10 MG SUBL 1 tab po bid ASENAPINE MALEATE 68887929389 No Longer Active Vishal Hui MD Active LISINOPRIL 20 MG TABS 1 tab po qd LISINOPRIL 45069235755 No Longer Active Vishal Hui MD Active LATUDA 20 MG TABS Take one by mouth daily LURASIDONE HCL 84784886904 No Longer Active Vishal Hui MD Active TRAZODONE HCL 50 MG TABS 1/2 tab po qd prn for anxiety TRAZODONE HCL 25254465467 No Longer Active Vishal Hui MD Active OMEPRAZOLE 20 MG TBEC 1 po q a.m. 30min prior to first food intake OMEPRAZOLE 93919074754 Active TAMARA Casey Active RANITIDINE HCL 150 MG CAPS 1 twice a day RANITIDINE HCL 80967827813 Active Luigi Martínez CHIEF NURSE EXECUTIVE Active LINZESS 290 MCG CAPS Take one by mouth daily LINACLOTIDE 31389652358 No Longer Active Vishal Hui MD Active SAPHRIS 5 MG SUBL 1 tab po qd ASENAPINE MALEATE 81076065744 No Longer Active Vishal Hui MD Active ZALEPLON 10 MG CAPS 1 cap po every other night ZALEPLON 77821010463 No Longer Active Vishal Hui MD Active LYRICA 50 MG CAPS 1 tab po TID PREGABALIN 60692739785 No Longer Active Vishal Hui MD Active LORATADINE 10 MG TABS 1 tab po qd LORATADINE 39302569637 No Longer Active Vishal Hui MD Active VERAPAMIL HCL ER 180 MG CR-TABS 1 tab po bid VERAPAMIL HCL 44919852383 No Longer Active Vishal Hui MD Active MIRALAX POWD 1 capfull once daily POLYETHYLENE GLYCOL 3350 93063134346 No Longer Active Vishal Hui MD Active PREDNISONE 20 MG TABS 1 tab po qd PREDNISONE 44477709546 No Longer Active Renzo Thornton DO Active LEVOFLOXACIN 500 MG TABS 1 tab po qd LEVOFLOXACIN 10107085246 No Longer Active Renzo Thornton DO Active BUSPIRONE HCL 15 MG TABS 1 tab po TID BUSPIRONE HCL 97348112795 No Longer Active Renzo Thornton DO Active BENZTROPINE MESYLATE 1 MG TABS 1 tab po qd BENZTROPINE MESYLATE 16761313430 No Longer Active Renzo Thornton DO Active ATENOLOL 25 MG TABS 1 tab po qd ATENOLOL 12017516140 No Longer Active Renzo Thornton DO Active ESCITALOPRAM OXALATE 20 MG TABS 1 tab po qd ESCITALOPRAM OXALATE 09803671258 No Longer Active Renzo Thornton DO Active ADVAIR DISKUS 250-50 MCG/DOSE AEPB 1 puff BID FLUTICASONE-SALMETEROL 77724391018 No Longer Active Renzo Thornton DO Active PREDNISONE 20 MG TAB 2 tabs daily for 3 days, 1 tab daily for 3 days, 1/2 tab daily for 2 days PREDNISONE 42855971724 No Longer Active Vishal Hui MD Active CEFDINIR 300 MG CAPS by mouth twice a day CEFDINIR 68663684322 No Longer Active Vishal Hui MD Active LANSOPRAZOLE 30 MG CPDR 1 cap po qd LANSOPRAZOLE 19907883717 No Longer Active Vishal Hui MD Active BACLOFEN 20 MG TABS 1 tab po tid BACLOFEN 27892200558 No Longer Active Vishal Hui MD Active ADVAIR DISKUS 250-50 MCG/DOSE AEPB 1 puff BID ADVAIR DISKUS 250-50 MCG/DOSE AEPB FLUTICASONE-SALMETEROL Inactive ESCITALOPRAM OXALATE 20 MG TABS 1 tab po qd ESCITALOPRAM OXALATE 20 MG TABS 960965 ESCITALOPRAM OXALATE Inactive ATENOLOL 25 MG TABS 1 tab po qd ATENOLOL 25 MG TABS 470095 ATENOLOL Inactive BENZTROPINE MESYLATE 1 MG TABS 1 tab po qd BENZTROPINE MESYLATE 1 MG TABS 284374 BENZTROPINE MESYLATE Inactive BUSPIRONE HCL 15 MG TABS 1 tab po TID BUSPIRONE HCL 15 MG TABS 712249 BUSPIRONE HCL Inactive LEVOFLOXACIN 500 MG TABS 1 tab po qd LEVOFLOXACIN 500 MG TABS 567137 LEVOFLOXACIN Inactive PREDNISONE 20 MG TABS 1 tab po qd PREDNISONE 20 MG TABS 136356 PREDNISONE Inactive MIRALAX POWD 1 capfull once daily MIRALAX POWD 746707 POLYETHYLENE GLYCOL 3350 Inactive VERAPAMIL HCL ER 180 MG CR-TABS 1 tab po bid VERAPAMIL HCL ER 180 MG CR-TABS VERAPAMIL HCL Inactive LORATADINE 10 MG TABS 1 tab po qd LORATADINE 10 MG TABS 427716 LORATADINE Inactive LYRICA 50 MG CAPS 1 tab po TID LYRICA 50 MG CAPS PREGABALIN Inactive ZALEPLON 10 MG CAPS 1 cap po every other night ZALEPLON 10 MG CAPS 159254 ZALEPLON Inactive SAPHRIS 5 MG SUBL 1 tab po qd SAPHRIS 5 MG SUBL ASENAPINE MALEATE Inactive TRAZODONE HCL 50 MG TABS 1/2 tab po qd prn for anxiety TRAZODONE HCL 50 MG TABS 348750 TRAZODONE HCL Inactive LATUDA 20 MG TABS Take one by mouth daily LATUDA 20 MG TABS LURASIDONE HCL Inactive LISINOPRIL 20 MG TABS 1 tab po qd LISINOPRIL 20 MG TABS 896419 LISINOPRIL Inactive SAPHRIS 10 MG SUBL 1 [...] twice daily BACTRIM DS 800-160 MG TAB 220368 TRIMETHOPRIM-SULFAMETHOXAZOLE Inactive MULTIVITAMINS CAPS Take one by mouth daily MULTIVITAMINS CAPS MULTIPLE VITAMIN Inactive MELATONIN 3 MG CAPS 2 po q hs MELATONIN 3 MG CAPS 19950526 MELATONIN Inactive KEFLEX 500 MG ORAL CAPS 1 cap QID by mouth KEFLEX 500 MG ORAL CAPS 498235 CEPHALEXIN Inactive CLINDAMYCIN HCL 150 MG CAPS 1 four times a day CLINDAMYCIN HCL 150 MG CAPS 130951 CLINDAMYCIN HCL Inactive DIFLUCAN 150 MG TAB 1 tablet by mouth daily DIFLUCAN 150 MG TAB 731186 FLUCONAZOLE Inactive PROZAC 20 MG CAP Take one by mouth daily PROZAC 20 MG CAP 830010 FLUOXETINE HCL Inactive IBUPROFEN 600 MG TAB 1 po TID PRN IBUPROFEN 600 MG TAB 429021 IBUPROFEN Inactive VYVANSE 40 MG CAPS 1 daily, VYVANSE 40 MG CAPS LISDEXAMFETAMINE DIMESYLATE Inactive TRAZODONE HCL 100 MG TAB take 1 at bedtime TRAZODONE HCL 100 MG TAB 525796 TRAZODONE HCL Inactive AMITRIPTYLINE HCL 100 MG TAB one at hs AMITRIPTYLINE HCL 100 MG TAB 331420 AMITRIPTYLINE HCL Inactive AMLODIPINE BESYLATE 5 MG TABS 1 tablet by mouth daily AMLODIPINE BESYLATE 5 MG TABS 468526 AMLODIPINE BESYLATE Inactive LATUDA 80 MG TABS Take one by mouth daily LATUDA 80 MG TABS LURASIDONE HCL Inactive SAPHRIS 5 MG SUBL 1 po bid SAPHRIS 5 MG SUBL ASENAPINE MALEATE Inactive PREDNISONE 20 MG TAB 2 tabs daily for 4 days, 1 tab daily for 4 days, 1/2 tab daily for 4 days PREDNISONE 20 MG TAB 104195 PREDNISONE Inactive AMBIEN 5 MG ORAL TABS 1 tab at bedtime AMBIEN 5 MG ORAL TABS 774862 ZOLPIDEM TARTRATE Inactive PROZAC 20 MG ORAL CAPS 1 tab daily PROZAC 20 MG ORAL CAPS 997185 FLUOXETINE HCL Inactive ABILIFY 15 MG ORAL TABS 1 tab daily ABILIFY 15 MG ORAL TABS 708156 ARIPIPRAZOLE Inactive METOPROLOL TARTRATE 50 MG TAB 1 po bid METOPROLOL TARTRATE 50 MG TAB 825052 METOPROLOL TARTRATE Inactive TRAMADOL HCL 50 MG TABS 1-2 po TID PRN Pain TRAMADOL HCL 50 MG TABS 485009 TRAMADOL HCL Inactive PIROXICAM 20 MG CAPS 1 cap po qd PRN Pain PIROXICAM 20 MG CAPS 487801 PIROXICAM Inactive MINIPRESS 2 MG CAPS 4 cap po at night MINIPRESS 2 MG CAPS 239096 PRAZOSIN HCL Inactive MIRALAX PACK 1 po qd PRN Constipation MIRALAX PACK 975402 POLYETHYLENE GLYCOL 3350 Inactive METOPROLOL TARTRATE 25 MG ORAL TABS 1/2 tablet twice daily for heart rate and blood pressure METOPROLOL TARTRATE 25 MG ORAL TABS 674592 METOPROLOL TARTRATE Inactive VALIUM 5 MG TAB Take 1-2 tablets daily VALIUM 5 MG TAB 279420 DIAZEPAM Inactive FLAGYL 500 MG TAB 1 tablet by mouth bid FLAGYL 500 MG TAB 890010 METRONIDAZOLE Inactive DICLOFENAC POTASSIUM TABS Take 1 tablet twice a day (pt. is not sure of the dose.) DICLOFENAC POTASSIUM TABS DICLOFENAC POTASSIUM TABS Inactive ZITHROMAX Z-EARNEST 250 MG TABS 2 today and then 1 daily for 4 days ZITHROMAX Z-EARNEST 250 MG TABS 8377587 AZITHROMYCIN Inactive PREDNISONE 20 MG TABS 2 daily for 5 days then 1 daily for 5 days PREDNISONE 20 MG TABS 840710 PREDNISONE Inactive PROAIR HFA 108 (90 BASE) MCG/ACT AERS 2 puffs four times a day as needed 2015 PROAIR HFA 108 (90 BASE) MCG/ACT AERS ALBUTEROL SULFATE Inactive HYDROCODONE-ACETAMINOPHEN 5-325 MG TABS 1 to 2 four times a day as needed for pain use until can be seen by specialist HYDROCODONE- ACETAMINOPHEN 5-325 MG TABS 709960 HYDROCODONE-ACETAMINOPHEN Inactive TESSALON PERLES 100 MG CAP 1 to 2 tablets by mouth 3 times daily as needed for cough TESSALON PERLES 100 MG CAP 921533 BENZONATATE Inactive CHANTIX STARTING MONTH EARNEST 0.5 [...] Pain 2015 DICLOFENAC SODIUM 50 MG TBEC 189179 DICLOFENAC SODIUM Inactive TOPAMAX 50 MG ORAL TABS 1 tab twice daily TOPAMAX 50 MG ORAL TABS 480615 TOPIRAMATE Inactive VIIBRYD 10 MG ORAL TABS Take 1 tablet once a day VIIBRYD 10 MG ORAL TABS VILAZODONE HCL Inactive LEVOFLOXACIN 500 MG ORAL TABS po daily LEVOFLOXACIN 500 MG ORAL TABS 748948 LEVOFLOXACIN Inactive METHYLPREDNISOLONE 4 MG ORAL TABS po daily METHYLPREDNISOLONE 4 MG ORAL TABS 188842 METHYLPREDNISOLONE Inactive OXYCODONE HCL ER 10 MG ORAL T12A 1/2 tab by mouth every 4 hours prn OXYCODONE HCL ER 10 MG ORAL T12A OXYCODONE HCL Inactive FLAGYL 500 MG TAB 1 tablet by mouth bid FLAGYL 500 MG TAB 288474 METRONIDAZOLE Inactive MONISTAT 7 COMBO PACK WOODROW 100 & 2 MG-% (9GM) VAG KIT 1 applicatorful per vagina q pm x 7 MONISTAT 7 COMBO PACK WOODROW 100 & 2 MG-% (9GM) VAG KIT MICONAZOLE NITRATE Inactive BACTRIM DS 800-160 MG TABS 1 twice a day BACTRIM DS 800-160 MG TABS 985447 SULFAMETHOXAZOLE-TRIMETHOPRIM Inactive TRAMADOL HCL 50 MG TABS 1/2-1 tab TID PRN TRAMADOL HCL 50 MG TABS 611003 TRAMADOL HCL Inactive ABILIFY MAINTENA 400 MG IM SUSR 400mg injection every 26 days ABILIFY MAINTENA 400 MG IM SUSR ARIPIPRAZOLE Inactive KLONOPIN 1 MG ORAL TABS 1 tab po TID KLONOPIN 1 MG ORAL TABS 628243 CLONAZEPAM Inactive ADVAIR DISKUS 250-50 MCG/DOSE INH AEPB 1 puff twice a day for asthma ADVAIR DISKUS 250-50 MCG/DOSE INH AEPB FLUTICASONE- SALMETEROL Inactive BENADRYL 25 MG CAP 4 po at bedtime for insomnia BENADRYL 25 MG CAP DIPHENHYDRAMINE HCL Inactive PREDNISONE 20 MG TABS 2 daily for 5 days then 1 daily for 5 days PREDNISONE 20 MG TABS 598749 PREDNISONE Inactive HYDROCODONE-ACETAMINOPHEN 5-325 MG ORAL TABS 1 tab two times a day HYDROCODONE-ACETAMINOPHEN 5-325 MG ORAL TABS 345914 HYDROCODONE-ACETAMINOPHEN Inactive ZITHROMAX Z-EARNEST 250 MG TABS 2 today and then 1 daily for 4 days ZITHROMAX Z-EARNEST 250 MG TABS 9373014 AZITHROMYCIN Inactive GUAIFENESIN-CODEINE 100-10 MG/5ML SYRP 5ml every 4 to 6 hours as needed for cough GUAIFENESIN-CODEINE 100-10 MG/5ML SYRP 861335 GUAIFENESIN-CODEINE Inactive HALOPERIDOL 10 MG ORAL TABS 1 tab q.d HALOPERIDOL 10 MG ORAL TABS 795825 HALOPERIDOL Inactive ASPIRIN 325 MG ORAL TABS 1 tab q.d ASPIRIN 325 MG ORAL TABS 769576 ASPIRIN Inactive FLUTICASONE PROPIONATE 50 MCG/ACT SUSP 2 sprays each nostril daily before bed. FLUTICASONE PROPIONATE 50 MCG/ACT SUSP 3667359 FLUTICASONE PROPIONATE Inactive ZOFRAN 4 MG TABS 1 po q6hr PRN Nausea ZOFRAN 4 MG TABS 852562 ONDANSETRON HCL Inactive CEFDINIR 300 MG CAPS by mouth twice a day CEFDINIR 300 MG CAPS 182788 CEFDINIR Inactive PREDNISONE 20 MG TAB 2 tabs daily for 3 days, 1 tab daily for 3 days, 1/2 tab daily for 2 days PREDNISONE 20 MG TAB 096104 PREDNISONE Inactive BACTRIM DS 800-160 MG TABS 1 po BID x 7 days BACTRIM DS 800-160 MG TABS 19820521 SULFAMETHOXAZOLE-TRIMETHOPRIM Inactive DIFLUCAN 150 MG TABS 1 pill every other day x 2 doses DIFLUCAN 150 MG TABS 012164 FLUCONAZOLE Inactive BACTRIM DS 800-160 MG TABS 1 pill by mouth twice daily BACTRIM DS 800-160 MG TABS 482539 SULFAMETHOXAZOLE-TRIMETHOPRIM Inactive KEFLEX 500 MG CAP 1 po TID x 10 days KEFLEX 500 MG CAP 578528 CEPHALEXIN Inactive Advance Directives Directive Description Start [...] % 11.0-15.0 platelet count 443 THOUSAND/UL 10*3/mm3 972-706 9854/03/01 mean platelet volume 8.2 fL 7.5-12.5 Lab [...] 369 10^3/MM^3 10*3/mm3 142-424 Lab Report: Chlamydia/GC APTIMA/[id number] - Lab chlamydia DNA probe NOT DETECTED NOT DETECTED Lab Report: Chlamydia/GC APTIMA/[id number] - Microbiology Neisseria gonorrhoeae DNA probe NOT DETECTED NOT DETECTED Lab Report: Chlamydia/GC APTIMA/22178, Urinalysis, Complete, with Reflex ... - Lab chlamydia DNA probe NOT DETECTED NOT DETECTED Lab Report: Chlamydia/GC APTIMA/[id number], Urinalysis, Complete, with Reflex ... - Microbiology Neisseria gonorrhoeae DNA probe NOT DETECTED NOT DETECTED Lab Report: Chlamydia/GC APTIMA/03096, Urinalysis, Complete, with Reflex ... - Urinalysis [...] 0.30 mg/dL 0.00-1.00 sodium, serum 140 mmol/L 251-474 9879/08/08 carbon dioxide, venous blood 33.7 mmol/L 21.0-32.0 [...] mg/dL Encounters Code Encounter Date Provider Facility CPT-08295 Level 3 Est. Patient 15:28:23 GUEST SERVICES ATTENDANT Suzan Boo [facility] CPT-18439 Level 4 Est. Patient 10:20:54 GUEST SERVICES ATTENDANT Suzan Boo [facility] CPT-55361 Level 3 Est. Patient 11:47:37 GUEST SERVICES ATTENDANT Ahmet Carbajal MD [facility] CPT-55681 Level 3 Est. Patient 10:40:11 GUEST SERVICES ATTENDANT Ahmet Carbajal MD [facility] CPT-70740 Level 3 Est. Patient 15:07:06 GUEST SERVICES ATTENDANT Neeraj Collins MD [facility] CPT-21049 Level 4 Est. Patient 14:45:00 GUEST SERVICES ATTENDANT Ahmet Carbajal MD [facility] CPT-41366 Level 3 Est. Patient 13:59:59 CDT Luigi Martínez [facility] CPT-55431 Level 3 Est. Patient 18:18:53 CDT Neeraj Collins MD [facility] CPT-88768 Level 3 Est. Patient 15:50:44 CDT Vishal Hui MD [facility] CPT-01904 Level 3 Est. Patient 11:36:17 CDT Ahmet Carbajal MD [facility] CPT-54201 Level 3 Est. Patient 13:29:16 CDT Vishal Hui MD [facility] CPT-85299 Level 3 Est. Patient 14:27:52 CDT Neeraj oCllins MD [facility] CPT-63369 Level 3 Est. Patient 08:56:03 CDT Luigi Martínez [facility] CPT-33337 Level 4 Est. Patient 12:11:48 CDT Fabiola Johnson APRN [facility] [place] CPT-82223 Level 3 New Patient 16:53:37 CDT Albert Caldera MD [facility] [place] CPT-72805 Level 3 Est. Patient 11:25:49 CDT Renzo Thornton DO [facility] [place] CPT-73909 Level 3 Est. Patient 15:22:01 CDT Ahmet Carbajal MD [facility] [place] CPT-48278 Level 4 Est. Patient 09:00:51 [employer] Vishal Hui MD [facility] [place] CPT-96545 Level 3 Est. 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 Patient 08:41:09 GUEST SERVICES ATTENDANT Vishal Hui MD [facility] CPT-35626 Level 4 Est. 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 Patient 13:35:45 CDT Vishal Hui MD [facility] CPT-96764 Level 4 Est. Patient 10:08:37 CDT Vishal Hui MD [facility] CPT-67787 Level 3 Est. Patient 11:22:10 CDT Vishal Hui MD [facility] CPT-65766 Level 3 Est. Patient 11:03:32 CDT Sahara Rodriguez MD PhD [facility] CPT-18801 Level 3 Est. Patient 09:41:35 CDT Vishal Hui MD [facility] CPT-27165 Level 3 Est. Patient 12:00:41 CDT Neeraj Collins MD [facility] CPT-97575 Level 3 Est. Patient 09:16:24 CDT Vishal Hui MD [facility] CPT-77951 Level 4 Est. Patient 13:59:09 CDT Neeraj Collins MD [facility] CPT-36010 Level 3 Est. Patient 15:19:43 CDT Renzo Thornton [facility] CPT-94041 Level 3 Est. Patient 18:10:26 CDT Sahara Rodriguez MD [facility] CPT-52904 Level 3 Est. Patient 14:49:50 CDT Vishal Hui MD [facility] CPT-74869 Level 4 Est. Patient 18:41:46 CDT Neeraj Collins MD [facility] CPT-40451 Level 4 Est. Patient 09:18:38 GUEST SERVICES ATTENDANT Vishal Hui MD [facility] CPT-23539 Level 3 Est. Patient 14:43:55 GUEST SERVICES ATTENDANT Vishal Hui MD [facility] CPT-71503 Level 3 Est. Patient 15:26:33 GUEST SERVICES ATTENDANT Sahara Rodriguez MD PhD [facility] CPT-80524 Level 3 Est. Patient 10:32:14 GUEST SERVICES ATTENDANT Vishal Hui MD [facility] CPT-35249 Level 3 Est. Patient 15:12:52 GUEST SERVICES ATTENDANT Vishal Hui MD [facility] CPT-27208 Level 4 Est. Patient 09:19:27 CDT Vishal Hui MD [facility] CPT-97353 Level 3 Est. Patient 15:53:00 CDT Renzo Thornton [facility] CPT-39539 Level 3 Est. Patient 15:50:30 CDT Renzo Thornton [facility] CPT-08532 Level 3 Est. Patient 16:55:24 CDT Vishal Hui MD [facility] Procedures Code Procedure Name Date Entry Date Standard Description CPT-G0439 [facility] Annual Wellness Exam 09:30:58 GUEST SERVICES ATTENDANT CPT-33931 TSH - LAB USE ONLY 08:50:26 GUEST SERVICES ATTENDANT CPT-66128 CBC - LAB USE ONLY 08:50:26 GUEST SERVICES ATTENDANT CPT-06356 Venipuncture Draw Fee 08:50:26 GUEST SERVICES ATTENDANT CPT-15323 Abx/Therapy Injection 17:34:30 GUEST SERVICES ATTENDANT CPT-76770 Nexplanon Removal with Reinsertion 14:09:32 CDT CPT-J7307 Nexplanon (Implant) 14:09:32 CDT CPT-OV Office Visit 14:09:32 CDT CPT-00276 UA w micro - LAB USE ONLY 16:21:13 CDT CPT-04921 Wet Mount - LAB USE ONLY 16:21:13 CDT CPT-86426 First Vx - Ix admin for Medicare patients 14:37:47 CDT CPT-69037 Fluzone Preservative Free Intramuscular Suspension 14:37 :47 CDT CPT-00145 Abx/Therapy Injection 13:54:22 CDT CPT-35046 Abx/Therapy Injection 08:47:09 CDT CPT-60168 Abx/Therapy Injection 13:29:56 CDT CPT-42034 Abx/Therapy Injection 08:36:16 CDT CPT-49290 Wet Mount - LAB USE ONLY 17:44:58 CDT CPT-95596 UA w micro - LAB USE ONLY 17:44:58 CDT CPT-29090 CMP - LAB USE ONLY 17:44:58 CDT CPT-74175 Venipuncture Draw Fee 17:44:58 CDT CPT-57525 Cervical Min 4V - XRAY USE ONLY 09:01:40 CDT CPT-85160 Chest 2V Frontal and Lat - XRAY USE ONLY 11:06:31 CDT CPT-64863 EKG Trac and Interp - XRAY USE ONLY 11:31:43 CDT 08/26 CPT-J3420 Vitamin B12 1000mcg (Cyanocobalamin) 08:10:26 GUEST SERVICES ATTENDANT 04/12 CPT-03934 Abx/Therapy Injection 08:10:26 GUEST SERVICES ATTENDANT CPT-G0438 Initial Annual Wellness Exam 19:01:01 GUEST SERVICES ATTENDANT CPT-J3420 Vitamin B12 1000mcg (Cyanocobalamin) 16:57:46 CDT 08/14 CPT-21120 Recombivax HB Injection Suspension 5 MCG/0.5ML 08:37:50 GUEST SERVICES ATTENDANT CPT-06376 Immunization Single Admin 08:37:50 GUEST SERVICES ATTENDANT CPT-J3420 Vitamin B12 1000mcg (Cyanocobalamin) 08:32:16 GUEST SERVICES ATTENDANT 03/11 CPT-92822 Abx/Therapy Injection 08:32:16 GUEST SERVICES ATTENDANT CPT-11324 Chest 2V Frontal and Lat 11:46:38 GUEST SERVICES ATTENDANT CPT-18206 Venipuncture Draw Fee 09:12:45 GUEST SERVICES ATTENDANT CPT-J3420 Vitamin B12 1000mcg (Cyanocobalamin) 08:50:15 GUEST SERVICES ATTENDANT 02/08 CPT-02361 Abx/Therapy Injection 08:50:15 GUEST SERVICES ATTENDANT CPT-Cryo Cryotherapy 10:19:35 GUEST SERVICES ATTENDANT CPT-000 Give Appropriate Flu Vaccine 09:22:16 CDT CPT-J3420 Vitamin B12 1000mcg (Cyanocobalamin) 19:08:57 CDT 01/11 CPT-37231 Abx/Therapy Injection 19:08:57 CDT CPT-J3420 Vitamin B12 1000mcg (Cyanocobalamin) 08:19:08 CDT 12/11 CPT-34794 Abx/Therapy Injection 08:19:08 CDT CPT-J3420 Vitamin B12 1000mcg (Cyanocobalamin) 14:48:00 CDT 11/09 CPT-69935 Abx/Therapy Injection 14:47:59 CDT CPT-J3420 Vitamin B12 1000mcg (Cyanocobalamin) 08:34:04 CDT 10/09 CPT-83282 Abx/Therapy Injection 08:34:04 CDT CPT-J3420 Vitamin B12 1000mcg (Cyanocobalamin) 09:18:52 CDT 09/11 CPT-64096 Abx/Therapy Injection 09:18:52 CDT CPT-J3420 Vitamin B12 1000mcg (Cyanocobalamin) 08:35:44 CDT 09/04 CPT-66963 Abx/Therapy Injection 08:35:44 CDT CPT-07708 Immunization Single Admin 11:07:16 CDT CPT-41651 Hepatitis B adult IM 11:07:16 CDT CPT-J3420 Vitamin B12 1000mcg (Cyanocobalamin) 11:00:49 CDT 08/28 CPT-J1040 Depo Medrol 80 mg (Methyl Prednisolone Acetate) 11:00: 49 CDT CPT-17344 Abx/Therapy Injection 11:00:49 CDT CPT-J1040 Depo Medrol 80 mg (Methyl Prednisolone Acetate) 09:16: 23 CDT CPT-J3420 Vitamin B12 1000mcg (Cyanocobalamin) 08:27:05 CDT 08/20 CPT-99646 Abx/Therapy Injection 08:27:05 CDT CPT-22963 Recombivax HB Injection Suspension 5 MCG/0.5ML 10:00:41 CDT CPT-33887 Administration single or combination vaccine inc oral 10 :00:41 CDT CPT-58932 Sono transvag pelvis non OB uterus ovaries cervix 16:36: 57 CDT CPT-33536 LS spine comp w obliq 09:50:55 GUEST SERVICES ATTENDANT CPT-05680 Abd compl w upright 09:50:55 GUEST SERVICES ATTENDANT CPT-J1100 Decadron 4mg (Dexamethasone) 15:51:24 GUEST SERVICES ATTENDANT CPT-J1030 Depo Medrol 40 mg (Methyl Prednisolone Acetate) 15:51: 24 GUEST SERVICES ATTENDANT CPT-09786 Abx/Therapy Injection 15:51:24 GUEST SERVICES ATTENDANT CPT-J1100 Decadron 4mg (Dexamethasone) 15:26:33 GUEST SERVICES ATTENDANT CPT-J1030 Depo Medrol 40 mg (Methyl Prednisolone Acetate) 15:26: 33 GUEST SERVICES ATTENDANT CPT-67202 Sono retroperitoneal complete kidneys and bladder 17:15: 30 CDT CPT-35882 Abd compl w upright 16:09:25 CDT CPT-J1100 Decadron 8mg (Dexamethasone) 17:07:57 CDT CPT-83557 Abx/Therapy Injection 17:07:57 CDT CPT-J1100 Decadron 8mg (Dexamethasone) 16:55:24 CDT CPT-99624 Chest 2V Frontal and Lat 16:32:44 CDT
--- OUTSIDE RECORDS SUMMARY | 2016-11-04 17:32 | XMS REPORT ---
Author Author 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 Squamous Epithelial 3+ Bacteria 3+ Drug Screen In House :30:00 Result Normal Range Units Amphetamine AB Positive Negative Barbiturates Negative Negative Benzodiazepines AB Positive Negative Cannabinoids Negative Negative *Triage TOXis a medical drug screen to be used only for assessment and treatment of patients. This drug screen cannot be used for employment or legal purposes. Cocaine Negative Negative Mamp/MDMA Negative Negative Methadone Negative Negative Opiates Negative Negative Phencyclidine Negative Negative Tricyclic Antidepressants Negative Negative Therapeutic Drug Monitoring :35:00 Result Normal Range Units Acetaminophen L 0.0 10.0-30.0 ug/ml Salicylate 3.2 2.0-20.0 mg/dl Chemistry 35: Result Normal Range Units Sodium 139 134-145 mEq/l Potassium 4.2 3.5-5.1 mEq/l Chloride 103 98-107 mEq/l CO2 H 29.0 22-28 mEq/l Glucose H 126 70-105 mg/dl BUN 9 7-18 mg/dl Creatinine 0.82 0.6-1.0 mg/dl Calcium 8.9 8.4-10.2 mg/dl TP - Total Protein 7.1 6.0-8.3 g/dl Albumin 4.0 3.5-5 g/dl Bilirubin - Total 0.4 0.1-1.0 mg/dl AST 32 10-42 IU/L ALT 62 12-65 IU/L ALP H 94 25-72 IU/L Osmolality L 277.8 280-300 mOsm/L Albumin/Globulin Ratio 1.3 0-8 Anion GAP L 7.0 8-16 BUN/Creatinine Ratio 11.0 10-20 Estimated GFR 83 >=60 mL/min/1.7 Hematology 35:00 Result Normal Range Units WBC 10.1 4.8-10.8 103/uL RBC 4.6 4.2-5.4 106/uL HGB 14.1 12.0-16.0 g/dl HCT 42.4 36.9-47.0 % MCV 91.6 81-99 FL MCH 30.5 27-31 pg MCHC 33.3 33-37 g/dl RDW 11.9 11.5-15.5 % PLT 369 130-400 103/uL MPV 10.1 7.3-10.4 FL Special Chemistry 35:00 Result Normal Range Units ETOH < 3 0-5 mg/dl Body Fluid 30:00 Result Normal Range Units pH 6.0 4.5-8.0 Radiology Results :35:00 Result Normal Range Units MPV 10.1 7.3-10.4 FL History of procedures Procedure Code Code Type Description Date Performed Performing Physician 73970 CPT-4 ELECTROCARDIOGRAM, TRACING 07-26-2015 MERT PABONLES 00812 CPT-4 ANALGESICS NON-OPIOID 1 OR 2 07-26-2015 MERT ROBIN 72327 CPT-4 ANALGESICS NON-OPIOID 1 OR 2 07-26-2015 MERT ROBIN 70495 CPT-4 DRUG SCREEN QUANTALCOHOLS 07-26-2015 MERT ROBIN 91720 CPT-4 COMPLETE CBC, AUTOMATED 07-26-2015 MERT ROBIN 35045 CPT-4 COMPREHEN METABOLIC PANEL 07-26-2015 MERT PABONLES 52187 CPT-4 URINALYSIS, AUTO W/SCOPE 07-26-2015 MERT PABONLES G0477 CPT-4 DRUG TEST PRESUMP OPTICAL 07-26-2015 MERT PABONLES 31751 CPT-4 ROUTINE VENIPUNCTURE 07-26-2015 MERT KELLY 83880 CPT-4 ELECTROCARDIOGRAM REPORT 07-26-2015 MANAS SCHRADER 21623 CPT-4 EMERGENCY DEPT VISIT 07-26-2015 MERT KELLY 66144 CPT-4 EMERGENCY DEPT VISIT 07-26-2015 MERT KELLY Functional status Functional Status Finding Observation Time Abdomen Appearance obese 11-77-699262:30 Abdomen soft 73-93-855085:30 Bowel Sounds present 61-76-870747:30 Vick no 80-22-719336:30 Urination normal 55-65-742579:30 Quality sym/unlabored 64-60-292964:30 Cough absent 77-45-925478:30 Secretions no 76-00-396256:30 Airway natural 39-74-036341:30 Chest Tube no 60-46-729981:30 Oxygen no 06-85-873123:00 Temp >100.4 no :30 Temp <96.8 no :30 Chills with rigors no 04-67-072315:30 HR > 90bpm yes :30 Respirations > 20 no 04-86-041353:30 Systolic <90 no 38-32-329017:30 headache stiff neck no 85-74-282506:30 Nursing Note Pt was given home instructions and instructed to follow SEK instructions and Pt verblized understanding and was off of floor in stable condtion : 08 Vital signs Type Value Date Respiration Rate 18breaths per minute : Pulse 90beats per minute : Oxygen Saturation 99% : BP Systolic 115mmHg :00 BP Diastolic 77mmHg : Temperature 98.6F :00 Social history Type Value Smoking Status CURRENT EVERY DAY SMOKER Treatment Plan No treatment plan text is available for this visit. Hospital discharge instructions Dismissal Condition good Disposition on DC home DC Inst/Educ Give yes PNE Vac No Flu Vac 2015 Tetanus Vac 2014
--- OUTSIDE RECORDS SUMMARY | 2016-11-04 17:32 | XMS REPORT | Clinical Summary ---
Author Author Admin, [email or web address] Organization [facility] Address Unknown Phone Unavailable Allergies, Adverse Reactions, [...] Inactive Vishal Hui MD Cellulitis ICD-682.9 Inactive iVshal Hui MD Pelvic pain ICD-625.9 Inactive Vishal [...] 17GMS DAILY IN WATER POLYETHYLENE GLYCOL 3350 [id number] Active Vishal Hui MD Active METOPROLOL TARTRATE 25 MG ORAL TABS 1/2 tablet twice daily for heart rate and blood pressure METOPROLOL TARTRATE 35227815551 Active Renzo Thornton DO Active VALIUM 5 MG TAB Take 1-2 tablets daily DIAZEPAM 32708007282 Active Ahmet Carbajal MD Active VIIBRYD 10 MG ORAL TABS Take 1 tablet once a day VILAZODONE HCL 83510868601 Active Ahmet Carbajal MD Active DICLOFENAC POTASSIUM TABS Take 1 tablet twice a day (pt. is not sure of the dose.) DICLOFENAC POTASSIUM TABS 57281215730 Active Ahmet Carbajal MD Active MIRALAX PACK 1 po qd PRN Constipation POLYETHYLENE GLYCOL 3350 82531812743 No Longer Active Ahmet Carbajal MD Active MINIPRESS 2 MG CAPS 4 cap po at night PRAZOSIN HCL 80486783322 No Longer Active Ahmet Carbajal MD Active PIROXICAM 20 MG CAPS 1 cap po qd PRN Pain PIROXICAM 06681747482 No Longer Active Ahmet Carbajal MD Active TRAMADOL HCL 50 MG TABS 1-2 po TID PRN Pain TRAMADOL HCL 60926011892 No Longer Active Ahmet Carbajal MD Active METOPROLOL TARTRATE 50 MG TAB 1 po bid METOPROLOL TARTRATE 98776868119 No Longer Active Ahmet Carbajal MD Active ABILIFY 15 MG ORAL TABS 1 tab daily ARIPIPRAZOLE 71491788770 No Longer Active Ahmet Carbajal MD Active PROZAC 20 MG ORAL CAPS 1 tab daily FLUOXETINE HCL 29965245219 No Longer Active Ahmet Carbajal MD Active AMBIEN 5 MG ORAL TABS 1 tab at bedtime ZOLPIDEM TARTRATE 11860196909 No Longer Active Ahmet Carbajal MD Active PREDNISONE 20 MG TAB 2 tabs daily for 4 days, 1 tab daily for 4 days, 1/2 tab daily for 4 days PREDNISONE 83259379911 No Longer Active Ahmet Carbajal MD Active KEFLEX 500 MG CAP 1 po TID x 10 days CEPHALEXIN 91347032135 No Longer Active Vishal Hui MD Active ABILIFY MAINTENA 400 MG IM SUSR Injection once per month ARIPIPRAZOLE 25718453728 Active Juliet Luis E PLANT ANATOMIST Active IMITREX 50 MG ORAL TABS 1/2 tab every 6 hours prn SUMATRIPTAN SUCCINATE 00126991394 Active Jillina Frazell PLANT ANATOMIST Active TOPAMAX 50 MG ORAL TABS 1 tab twice daily TOPIRAMATE 77068046548 Active Vishal Hui MD Active SAPHRIS 5 MG SUBL 1 po bid ASENAPINE MALEATE 31858047493 No Longer Active Jillina Mauricio NROIEGA Active LATUDA 80 MG TABS Take one by mouth daily LURASIDONE HCL 56342244389 No Longer Active Pacollina Mauricio NORIEGA Active AMLODIPINE BESYLATE 5 MG TABS 1 tablet by mouth daily AMLODIPINE BESYLATE 91771563361 No Longer Active Pacollina Mauricio NORIEGA Active AMITRIPTYLINE HCL 100 MG TAB one at hs AMITRIPTYLINE HCL 09544549840 No Longer Active Vishal Hui MD Active TRAZODONE HCL 100 MG TAB take 1 at bedtime TRAZODONE HCL 11341923956 No Longer Active Vishal Hui MD Active VYVANSE 40 MG CAPS 1 daily, LISDEXAMFETAMINE DIMESYLATE 74822861866 No Longer Active Vishal Hui MD Active IBUPROFEN 600 MG TAB 1 po TID PRN IBUPROFEN 21986963881 No Longer Active Vishal Hui MD Active PROZAC 20 MG CAP Take one by mouth daily FLUOXETINE HCL 36092047443 No Longer Active Vishal Hui MD Active ZOFRAN 4 MG TABS 1 po q6hr PRN Nausea ONDANSETRON HCL Active Vishal Hui MD Active BACTRIM DS 800-160 MG TABS 1 pill by mouth twice daily SULFAMETHOXAZOLE-TRIMETHOPRIM 65055312862 No Longer Active Sahara Rodriguez MD PhD Active DIFLUCAN 150 MG TAB 1 tablet by mouth daily FLUCONAZOLE 41039241118 No Longer Active Vishal Hui MD Active TIZANIDINE HCL 4 MG TABS 1 po q6hr PRN Muscle Spasm/Back Pain TIZANIDINE HCL 76804757265 Active Vishal Hui MD Active CLINDAMYCIN HCL 150 MG CAPS 1 four times a day CLINDAMYCIN HCL 36149565511 No Longer Active Neeraj Collins MD Active KEFLEX 500 MG ORAL CAPS 1 cap QID by mouth CEPHALEXIN 52980826814 No Longer Active Neeraj Collins MD Active DIFLUCAN 150 MG TABS 1 pill every other day x 2 doses FLUCONAZOLE 97814152555 No Longer Active Sahara Rodriguez MD PhD Active MELATONIN 3 MG CAPS 2 po q hs MELATONIN 61034378734 No Longer Active Sahara Rodriguez MD PhD Active MULTIVITAMINS CAPS Take one by mouth daily MULTIPLE VITAMIN 96633126705 No Longer Active Sahara Rodriguez MD PhD Active BACTRIM DS 800-160 MG TAB 1 tab by mouth twice daily TRIMETHOPRIM-SULFAMETHOXAZOLE 65205683409 No Longer Active Sahara Rodriguez MD PhD Active [facility] PROBIOTIC ORAL CHEW 2 daily po PROBIOTIC PRODUCT 87188329878 No Longer Active Sahara Rodriguez MD PhD Active BACTRIM DS 800-160 MG TABS 1 po BID x 7 days SULFAMETHOXAZOLE-TRIMETHOPRIM 43055920542 No Longer Active Vishal Hui MD Active CHANTIX STARTING MONTH EARNEST 0.5 MG X 11 & 1 MG X 42 TABS 0.5mg daily for 3 days , then 0.5mg BID for 4 days, then 1mg BID VARENICLINE TARTRATE 26399728650 No Longer Active Lisette Scarrow, RMA Active VERAPAMIL HCL CR 120 MG TAB CR 1 po bid VERAPAMIL HCL 90385414842 No Longer Active Vishal Hui MD Active METOPROLOL SUCCINATE 50 MG TB24 1 tablet by mouth daily METOPROLOL SUCCINATE 16179208480 No Longer Active Vishal Hui MD Active SAPHRIS 10 MG SUBL 1 tab po bid ASENAPINE MALEATE 27424404669 No Longer Active Vishal Hui MD Active LISINOPRIL 20 MG TABS 1 tab po qd LISINOPRIL 27908062402 No Longer Active Vishal Hui MD Active BENADRYL 25 MG CAP 2 po tid prn anxiety DIPHENHYDRAMINE HCL 58000147494 Active Vishal Hui MD Active LATUDA 20 MG TABS Take one by mouth daily LURASIDONE HCL 55344449217 No Longer Active Vishal Hui MD Active TRAZODONE HCL 50 MG TABS 1/2 tab po qd prn for anxiety TRAZODONE HCL 27717112968 No Longer Active Vishal Hui MD Active OMEPRAZOLE 20 MG TBEC 1 po q a.m. 30min prior to first food intake OMEPRAZOLE 25444183921 Active Vishal Hui MD Active RANITIDINE HCL 150 MG CAPS 1 twice a day RANITIDINE HCL 28699197167 Active Vishal Hui MD Active LINZESS 290 MCG CAPS Take one by mouth daily LINACLOTIDE 37697055560 No Longer Active Vishal Hui MD Active SAPHRIS 5 MG SUBL 1 tab po qd ASENAPINE MALEATE 91665799809 No Longer Active Vishal Hui MD Active ZALEPLON 10 MG CAPS 1 cap po every other night ZALEPLON 11240657474 No Longer Active Vishal Hui MD Active LYRICA 50 MG CAPS 1 tab po TID PREGABALIN 24922096602 No Longer Active Vishal Hui MD Active LORATADINE 10 MG TABS 1 tab po qd LORATADINE 44147937938 No Longer Active Vishal Hui MD Active VERAPAMIL HCL ER 180 MG CR-TABS 1 tab po bid VERAPAMIL HCL 19288277951 No Longer Active Vishal Hui MD Active MIRALAX POWD 1 capfull once daily POLYETHYLENE GLYCOL 3350 53574908043 No Longer Active Vishal Hui MD Active PREDNISONE 20 MG TABS 1 tab po qd PREDNISONE 19996435218 No Longer Active Renzo Thornton DO Active LEVOFLOXACIN 500 MG TABS 1 tab po qd LEVOFLOXACIN 25111157291 No Longer Active Renzo Thornton DO Active BUSPIRONE HCL 15 MG TABS 1 tab po TID BUSPIRONE HCL 97329291192 No Longer Active Renzo Thornton DO Active BENZTROPINE MESYLATE 1 MG TABS 1 tab po qd BENZTROPINE MESYLATE 03055168569 No Longer Active Renzo Thornton DO Active ATENOLOL 25 MG TABS 1 tab po qd ATENOLOL 49900472123 No Longer Active Renzo Thornton DO Active ESCITALOPRAM OXALATE 20 MG TABS 1 tab po qd ESCITALOPRAM OXALATE 32607095604 No Longer Active Renzo Thornton DO Active ADVAIR DISKUS 250-50 MCG/DOSE AEPB 1 puff BID FLUTICASONE-SALMETEROL 97637874857 No Longer Active Renzo Thornton DO Active PREDNISONE 20 MG TAB 2 tabs daily for 3 days, 1 tab daily for 3 days, 1/2 tab daily for 2 days PREDNISONE 20507406161 No Longer Active Vishal Hui MD Active CEFDINIR 300 MG CAPS by mouth twice a day CEFDINIR 36331304808 No Longer Active Vishal Hui MD Active LANSOPRAZOLE 30 MG CPDR 1 cap po qd LANSOPRAZOLE 45715057935 No Longer Active Vishal Hui MD Active BACLOFEN 20 MG TABS 1 tab po tid BACLOFEN 87210771991 No Longer Active Vishal Hui MD Active ADVAIR DISKUS 250-50 MCG/DOSE AEPB 1 puff BID ADVAIR DISKUS 250-50 MCG/DOSE AEPB FLUTICASONE-SALMETEROL Inactive ESCITALOPRAM OXALATE 20 MG TABS 1 tab po qd ESCITALOPRAM OXALATE 20 MG TABS 826793 ESCITALOPRAM OXALATE Inactive ATENOLOL 25 MG TABS 1 tab po qd ATENOLOL 25 MG TABS 642442 ATENOLOL Inactive BENZTROPINE MESYLATE 1 MG TABS 1 tab po qd BENZTROPINE MESYLATE 1 MG TABS 396793 BENZTROPINE MESYLATE Inactive BUSPIRONE HCL 15 MG TABS 1 tab po TID BUSPIRONE HCL 15 MG TABS 286620 BUSPIRONE HCL Inactive LEVOFLOXACIN 500 MG TABS 1 tab po qd LEVOFLOXACIN 500 MG TABS 509134 LEVOFLOXACIN Inactive PREDNISONE 20 MG TABS 1 tab po qd PREDNISONE 20 MG TABS 651379 PREDNISONE Inactive MIRALAX POWD 1 capfull once daily MIRALAX POWD 344609 POLYETHYLENE GLYCOL 3350 Inactive VERAPAMIL HCL ER 180 MG CR-TABS 1 tab po bid VERAPAMIL HCL ER 180 MG CR-TABS VERAPAMIL HCL Inactive LORATADINE 10 MG TABS 1 tab po qd LORATADINE 10 MG TABS 355982 LORATADINE Inactive LYRICA 50 MG CAPS 1 tab po TID LYRICA 50 MG CAPS PREGABALIN Inactive ZALEPLON 10 MG CAPS 1 cap po every other night ZALEPLON 10 MG CAPS 639558 ZALEPLON Inactive SAPHRIS 5 MG SUBL 1 tab po qd SAPHRIS 5 MG SUBL ASENAPINE MALEATE Inactive TRAZODONE HCL 50 MG TABS 1/2 tab po qd prn for anxiety TRAZODONE HCL 50 MG TABS 546949 TRAZODONE HCL Inactive LATUDA 20 MG TABS Take one by mouth daily LATUDA 20 MG TABS LURASIDONE HCL Inactive LISINOPRIL 20 MG TABS 1 tab po qd LISINOPRIL 20 MG TABS 041495 LISINOPRIL Inactive SAPHRIS 10 MG SUBL 1 [...] twice daily BACTRIM DS 800-160 MG TAB 302731 TRIMETHOPRIM-SULFAMETHOXAZOLE Inactive MULTIVITAMINS CAPS Take one by mouth daily MULTIVITAMINS CAPS MULTIPLE VITAMIN Inactive MELATONIN 3 MG CAPS 2 po q hs MELATONIN 3 MG CAPS 19950526 MELATONIN Inactive KEFLEX 500 MG ORAL CAPS 1 cap QID by mouth KEFLEX 500 MG ORAL CAPS 656325 CEPHALEXIN Inactive CLINDAMYCIN HCL 150 MG CAPS 1 four times a day CLINDAMYCIN HCL 150 MG CAPS 19740326 CLINDAMYCIN HCL Inactive DIFLUCAN 150 MG TAB 1 tablet by mouth daily DIFLUCAN 150 MG TAB 136008 FLUCONAZOLE Inactive PROZAC 20 MG CAP Take one by mouth daily PROZAC 20 MG CAP 511990 FLUOXETINE HCL Inactive IBUPROFEN 600 MG TAB 1 po TID PRN IBUPROFEN 600 MG TAB 960446 IBUPROFEN Inactive VYVANSE 40 MG CAPS 1 daily, VYVANSE 40 MG CAPS LISDEXAMFETAMINE DIMESYLATE Inactive TRAZODONE HCL 100 MG TAB take 1 at bedtime TRAZODONE HCL 100 MG TAB 947277 TRAZODONE HCL Inactive AMITRIPTYLINE HCL 100 MG TAB one at hs AMITRIPTYLINE HCL 100 MG TAB 483136 AMITRIPTYLINE HCL Inactive AMLODIPINE BESYLATE 5 MG TABS 1 tablet by mouth daily AMLODIPINE BESYLATE 5 MG TABS 686792 AMLODIPINE BESYLATE Inactive LATUDA 80 MG TABS Take one by mouth daily LATUDA 80 MG TABS LURASIDONE HCL Inactive SAPHRIS 5 MG SUBL 1 po bid SAPHRIS 5 MG SUBL ASENAPINE MALEATE Inactive PREDNISONE 20 MG TAB 2 tabs daily for 4 days, 1 tab daily for 4 days, 1/2 tab daily for 4 days PREDNISONE 20 MG TAB 093036 PREDNISONE Inactive AMBIEN 5 MG ORAL TABS 1 tab at bedtime AMBIEN 5 MG ORAL TABS 751440 ZOLPIDEM TARTRATE Inactive PROZAC 20 MG ORAL CAPS 1 tab daily PROZAC 20 MG ORAL CAPS 154988 FLUOXETINE HCL Inactive ABILIFY 15 MG ORAL TABS 1 tab daily ABILIFY 15 MG ORAL TABS 112351 ARIPIPRAZOLE Inactive METOPROLOL TARTRATE 50 MG TAB 1 po bid METOPROLOL TARTRATE 50 MG TAB 477524 METOPROLOL TARTRATE Inactive TRAMADOL HCL 50 MG TABS 1-2 po TID PRN Pain TRAMADOL HCL 50 MG TABS 550334 TRAMADOL HCL Inactive PIROXICAM 20 MG CAPS 1 cap po qd PRN Pain PIROXICAM 20 MG CAPS 342998 PIROXICAM Inactive MINIPRESS 2 MG CAPS 4 cap po at night MINIPRESS 2 MG CAPS 362709 PRAZOSIN HCL Inactive MIRALAX PACK 1 po qd PRN Constipation MIRALAX PACK 155852 POLYETHYLENE GLYCOL 3350 Inactive CEFDINIR 300 MG CAPS by mouth twice a day CEFDINIR 300 MG CAPS 745892 CEFDINIR Inactive PREDNISONE 20 MG TAB 2 tabs daily for 3 days, 1 tab daily for 3 days, 1/2 tab daily for 2 days PREDNISONE 20 MG TAB 319009 PREDNISONE Inactive BACTRIM DS 800-160 MG TABS 1 po BID x 7 days BACTRIM DS 800-160 MG TABS 454512 SULFAMETHOXAZOLE-TRIMETHOPRIM Inactive DIFLUCAN 150 MG TABS 1 pill every other day x 2 doses DIFLUCAN 150 MG TABS 202512 FLUCONAZOLE Inactive BACTRIM DS 800-160 MG TABS 1 pill by mouth twice daily BACTRIM DS 800-160 MG TABS 826430 SULFAMETHOXAZOLE-TRIMETHOPRIM Inactive KEFLEX 500 MG CAP 1 po TID x 10 days KEFLEX 500 MG CAP 663642 CEPHALEXIN Inactive Advance Directives Directive Description Start [...] % 11.6-14.8 platelet count 394 10^3/MM^3 10*3/mm3 312-299 7466/01/11 leukocyte count, blood 13.8 10^3/MM^3 10*3/mm3 4.6-10.2 [...] Panel - Chemistry sodium, serum 139 mmol/L 856-837 8639/12/03 carbon dioxide, venous blood 28.5 mmol/L 21.0-32.0 [...] 5.5 % 4.3-6.0 cholesterol, serum 159 mg/dL 922-639 4881/12/03 triglyceride, serum, fasting 118 mg/dL 30-200 HDL [...] Panel - Chemistry sodium, serum 139 mmol/L 945-357 6949/12/22 carbon dioxide, venous blood 26.8 mmol/L 21.0-32.0 potassium, serum 4.2 mmol/L 3.5-5.2 chloride, serum 103 mmol/L 98-107 blood glucose 115 mg/dL 65-110 urea nitrogen, blood 20 mg/dL 7-18 creatinine, serum 0.90 mg/dL 0.55-1.30 alanine aminotransferase (SGPT), serum 38 U/L 12-78 aspartate aminotransferase (SGOT), serum 19 U/L 15-37 calcium, serum 8.6 mg/dL 8.5-10.1 bilirubin, serum, total 0.30 mg/dL 0.00-1.00 sodium, serum 139 mmol/L 849-293 5986/01/11 carbon dioxide, venous blood 26.6 mmol/L 21.0-32.0 potassium, serum 4.1 mmol/L 3.5-5.2 chloride, serum 100 mmol/L 98-107 blood glucose 86 mg/dL 65-110 urea nitrogen, blood 16 mg/dL 7-18 creatinine, serum 1.00 mg/dL 0.55-1.30 alanine aminotransferase (SGPT), serum 48 U/L - aspartate aminotransferase (SGOT), serum 17 U/L 15-37 calcium, serum 9.1 mg/dL 8.5-10.1 bilirubin, serum, total 0.40 mg/dL 0.00-1.00 sodium, serum 142 mmol/L 825-518 0495/06/08 carbon dioxide, venous blood 27.6 mmol/L 21.0-32.0 [...] Rate - Chemistry sodium, serum 139 mmol/L 351-601 9588/12/11 carbon dioxide, venous blood 25.4 mmol/L 21.0-32.0 [...] 5.0-8.5 Encounters Code Encounter Date Provider Facility CPT-20539 Level 3 New Patient 16:53:37 CDT Albert Caldera MD [facility] CPT-48861 Level 3 Est. Patient 11:25:49 CDT Renzo Thornton DO [facility] CPT-64479 Level 3 Est. Patient 15:22:01 CDT Ahmet Carbajal MD [facility] CPT-74272 Level 4 Est. Patient 09:00:51 [employer]AUGE [employer] Vishal Hui MD [facility] CPT-90805 Level 3 Est. Patient 11:37:33 GAUGE CONTROLLER Vishal Hui MD [facility] CPT-92297 Level 3 Est. Patient 08:41:09 GAUGE CONTROLLER Vishal Hui MD [facility] CPT-93440 Level 4 Est. Patient 10:19:35 GAUGE CONTROLLER Vishal Hui MD [facility] CPT-31084 Level 3 Est. Patient 13:35:45 CDT Vishal Hui MD [facility] CPT-22403 Level 4 Est. Patient 10:08:37 CDT Vishal Hui MD [facility]-45071 Level 3 Est. Patient 11:22:10 CDT Vishal Hui MD [facility]-87522 Level 3 Est. Patient 11:03:32 CDT Sahara Rodriguez MD [facility]-48443 Level 3 Est. Patient 09:41:35 CDT Vishal Hui MD [facility]-24370 Level 3 Est. Patient 12:00:41 CDT Neeraj Collins MD [facility] CPT-55977 Level 3 Est. Patient 09:16:24 CDT Vishal Hui MD [facility]-16424 Level 4 Est. Patient 13:59:09 CDT Neeraj Collins MD [facility]-76167 Level 3 Est. Patient 15:19:43 CDT Renzo Thornton DO [facility] CPT-68404 Level 3 Est. Patient 18:10:26 CDT Sahara Rodriguez MD [facility]-87826 Level 3 Est. Patient 14:49:50 CDT Vishal Hui MD [facility]-36349 Level 4 Est. Patient 18:41:46 CDT Neeraj Collins MD [facility]-62254 Level 4 Est. Patient 09:18:38 GAUGE CONTROLLER Vishal Hiu MD [facility]-95178 Level 3 Est. Patient 14:43:55 GAUGE CONTROLLER Vishal Hui MD [facility] CPT-06180 Level 3 Est. Patient 15:26:33 GAUGE CONTROLLER Sahara Rodriguez MD [facility]-50295 Level 3 Est. Patient 10:32:14 GAUGE CONTROLLER Vishal Hui MD [facility]-70554 Level 3 Est. Patient 15:12:52 GAUGE CONTROLLER Vishal Hui MD [facility] CPT-61952 Level 4 Est. Patient 09:19:27 CDT Vishal Hui MD [facility] CPT-67426 Level 3 Est. Patient 15:53:00 CDT Renzo Thornton [facility] CPT-56173 Level 3 Est. Patient 15:50:30 CDT Renzo Thornton [facility] CPT-30165 Level 3 Est. Patient 16:55:24 CDT Vishal Hui MD [facility] Procedures Code Procedure Name Date Entry Date Standard Description CPT-71289 EKG Trac and Interp - XRAY USE ONLY 11:31:43 CDT 08/26 CPT-J3420 Vitamin B12 1000mcg (Cyanocobalamin) 08:10:26 [employer]GE [employer]ER 04/12 CPT-12624 Abx/Therapy Injection 08:10:26 GAUGE [employer] CPT-G0438 Initial Annual Wellness Exam 19:01:01 G[employer]GE [employer] CPT-J3420 Vitamin B12 1000mcg (Cyanocobalamin) 16:57:46 CDT 08/14 CPT-54863 Recombivax HB Injection Suspension 5 MCG/0.5ML 08:37:50 GAUGE [employer]ER CPT-73092 Immunization Single Admin 08:37:50 GAUGE [employer]OLLER CPT-J3420 Vitamin B12 1000mcg (Cyanocobalamin) 08:32:16 GAUGE [employer]OLLER 03/11 CPT-26890 Abx/Therapy Injection 08:32:16 GAUGE [employer]ER CPT-01845 Chest 2V Frontal and Lat 11:46:38 GAUGE [employer]OLLER CPT-63288 Venipuncture Draw Fee 09:12:45 GAUGE [employer]OLLER CPT-J3420 Vitamin B12 1000mcg (Cyanocobalamin) 08:50:15 GAUGE [employer]OLLER 02/08 CPT-86268 Abx/Therapy Injection 08:50:15 GAUGE CONTROLLER CPT-Cryo Cryotherapy 10:19:35 GAUGE [employer]OLLER CPT-000 Give Appropriate Flu Vaccine 09:22:16 CDT CPT-J3420 Vitamin B12 1000mcg (Cyanocobalamin) 19:08:57 CDT 01/11 CPT-33381 Abx/Therapy Injection 19:08:57 CDT CPT-J3420 Vitamin B12 1000mcg (Cyanocobalamin) 08:19:08 CDT 12/11 CPT-50169 Abx/Therapy Injection 08:19:08 CDT CPT-J3420 Vitamin B12 1000mcg (Cyanocobalamin) 14:48:00 CDT 11/09 CPT-41302 Abx/Therapy Injection 14:47:59 CDT CPT-J3420 Vitamin B12 1000mcg (Cyanocobalamin) 08:34:04 CDT 10/09 CPT-32681 Abx/Therapy Injection 08:34:04 CDT CPT-J3420 Vitamin B12 1000mcg (Cyanocobalamin) 09:18:52 CDT 09/11 CPT-57516 Abx/Therapy Injection 09:18:52 CDT CPT-J3420 Vitamin B12 1000mcg (Cyanocobalamin) 08:35:44 CDT 09/04 CPT-10136 Abx/Therapy Injection 08:35:44 CDT CPT-65671 Immunization Single Admin 11:07:16 CDT CPT-63965 Hepatitis B adult IM 11:07:16 CDT CPT-J3420 Vitamin B12 1000mcg (Cyanocobalamin) 11:00:49 CDT 08/28 CPT-J1040 Depo Medrol 80 mg (Methyl Prednisolone Acetate) 11:00: 49 CDT CPT-02524 Abx/Therapy Injection 11:00:49 CDT CPT-J1040 Depo Medrol 80 mg (Methyl Prednisolone Acetate) 09:16: 23 CDT CPT-J3420 Vitamin B12 1000mcg (Cyanocobalamin) 08:27:05 CDT 08/20 CPT-84951 Abx/Therapy Injection 08:27:05 CDT CPT-36497 Recombivax HB Injection Suspension 5 MCG/0.5ML 10:00:41 CDT CPT-95640 Administration single or combination vaccine inc oral 10 :00:41 CDT CPT-04923 Sono transvag pelvis non OB uterus ovaries cervix 16:36: 57 CDT CPT-09904 LS spine comp w obliq 09:50:55 GAUGE [employer]ER CPT-17989 Abd compl w upright 09:50:55 GAUGE [employer]OLLER CPT-J1100 Decadron 4mg (Dexamethasone) 15:51:24 GAUGE [employer]OLLER CPT-J1030 Depo Medrol 40 mg (Methyl Prednisolone Acetate) 15:51: 24 GAUGE [employer]OLLER CPT-69395 Abx/Therapy Injection 15:51:24 GAUGE CONTROLLER CPT-J1100 Decadron 4mg (Dexamethasone) 15:26:33 GAUGE [employer]OLLER CPT-J1030 Depo Medrol 40 mg (Methyl Prednisolone Acetate) 15:26: 33 GAUGE [employer]OLLER CPT-90507 Sono retroperitoneal complete kidneys and bladder 17:15: 30 CDT CPT-93646 Abd compl w upright 16:09:25 CDT CPT-J1100 Decadron 8mg (Dexamethasone) 17:07:57 CDT CPT-29021 Abx/Therapy Injection 17:07:57 CDT CPT-J1100 Decadron 8mg (Dexamethasone) 16:55:24 CDT CPT-30091 Chest 2V Frontal and Lat 16:32:44 CDT
--- OUTSIDE RECORDS SUMMARY | 2016-11-04 17:35 | XMS REPORT | Clinical Summary ---
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 V72.31 Active Suzan Boo [...] MD Health screening ICD-V70.0 Inactive Suzan Boo [employer] Sinus tachycardia ICD-427.89 Inactive Suzan Boo [employer] Smoker/tobacco use disorder-smoking cessation discussed ICD-305.1 Inactive Vishal Hui MD Abdominal pain ICD-789.00 Inactive Vishal Hui MD Cellulitis ICD-682.9 Inactive Vishal Hui MD Pelvic pain ICD-625.9 Inactive Vishal Hui MD Abscess, skin ICD-682.9 Inactive Vishal Hui MD Physical examination ICD-V70.0 Jim Hui MD Vaginitis ICD-616.10 Inactive Vishal Hui MD 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 Inactive Visahl Hui MD Fatigue ICD-780.79 Inactive Vishal Hui [...] Instruction AMITIZA 8 MCG ORAL CAPS 1 capsule twice daily LUBIPROSTONE 92432336138 Active Sheila Calderon LPN Active LINZESS 290 MCG ORAL CAPS 1 tab 30 min prior to first meal each day. LINACLOTIDE 19233323417 No Longer Active Sheila Calderon LPN Active AMITIZA 8 MCG ORAL CAPS 1 tab BID LUBIPROSTONE 03176122973 No Longer Active Lynda Xiao EMG TECHNICIAN Active DIFLUCAN 150 MG TABS 1 by mouth for yeast FLUCONAZOLE 41820187098 Active Suzan Boo APRN Active LACTULOSE 10 GM/15ML ORAL SOLN 30mL oral BID for IBS-C LACTULOSE 02324479425 Active Suzan Boo APRN Active BACTRIM DS 800-160 MG TABS 1 twice a day SULFAMETHOXAZOLE- TRIMETHOPRIM 05069990478 Active Lynda Juarezl EMG TECHNICIAN Active MUPIROCIN 2 % OINT apply twice a day MUPIROCIN 67626039760 Active Suzan Boo APRN Active TESSALON PERLES 100 MG CAPS 1 three times a day as needed for cough BENZONATATE 45995125125 No Longer Active Suzan Boo APRN Active BACTRIM DS 800-160 MG TABS 1 twice a day SULFAMETHOXAZOLE-TRIMETHOPRIM 19495821343 No Longer Active Suzan Boo APRN Active DIFLUCAN 150 MG TABS 1 by mouth for yeast FLUCONAZOLE 55517574473 No Longer Active Suzan Boo APRN Active EQ NICOTINE 21 MG/24HR TRANS PT24 Apply daily to stop smoking NICOTINE 75673954701 No Longer Active Suzan Boo APRN Active PREDNISONE 10 MG TABS 2 daily for 5 days then 1 daily for 5 days PREDNISONE 75233522034 No Longer Active Suzan Boo APRN Active LEVAQUIN 500 MG TABS 1 daily for infection LEVOFLOXACIN 26551308586 No Longer Active Suzan Boo APRN Active TROPICAMIDE 0.5 % OPHTH SOLN 1 drop PRN eye spasms TROPICAMIDE 33731879423 No Longer Active Suzan Boo APRN Active PREDNISONE 20 MG TAB 1 tablet daily x 4 days PREDNISONE 81654797642 No Longer Active Suzan Boo APRN Active ACETAMINOPHEN-CODEINE 120-12 MG/5ML SOLN 5 ml by mouth every 4-6 hours if needed for cough ACETAMINOPHEN-CODEINE 91977367125 No Longer Active Suzan Boo APRN Active KEFLEX 500 MG CAP 1 po qid CEPHALEXIN 90298366942 No Longer Active Suazn Boo APRN Active FLOVENT HFA 110 MCG/ACT AERO 2 puffs inhaled b.i.d. FLUTICASONE PROPIONATE HFA 08345098042 Active Renzo Thornton DO Active RISPERDAL 4 MG ORAL TABS 1 tab at bedtime RISPERIDONE 93274376949 Active Samantha Rothman RMA Active ZOFRAN 4 MG TABS 1 po q6hr PRN Nausea ONDANSETRON HCL No Longer Active Suzan Boo APRN Active FLUTICASONE PROPIONATE 50 MCG/ACT SUSP 2 sprays each nostril daily before bed. FLUTICASONE PROPIONATE 63968974178 No Longer Active Suzan Boo APRN Active ASPIRIN 325 MG ORAL TABS 1 tab q.d ASPIRIN 51025667279 No Longer Active Suzan Boo APRN Active HALOPERIDOL 10 MG ORAL TABS 1 tab q.d HALOPERIDOL 92353408186 No Longer Active Suzan Boo APRN Active GUAIFENESIN-CODEINE 100-10 MG/5ML SYRP 5ml every 4 to 6 hours as needed for cough GUAIFENESIN-CODEINE 55903803178 No Longer Active Suzan Boo APRN Active ZITHROMAX Z-EARNEST 250 MG TABS 2 today and then 1 daily for 4 days AZITHROMYCIN 99400851323 No Longer Active Suzan Boo APRN Active CLONAZEPAM 1 MG ORAL TABS 1 twice a day and an additional 1 tablet every other day as needed for pseudoseizures or anxiety CLONAZEPAM 26099716181 Active Suzan Boo APRN Active HYDROCODONE-ACETAMINOPHEN 5-325 MG ORAL TABS 1 tab two times a day HYDROCODONE-ACETAMINOPHEN 96372545513 No Longer Active Ahmet Carbajal MD Active LAMICTAL 100 MG ORAL TABS 1 tab 2 times qd. LAMOTRIGINE 42669405373 Active Ahmet Carbajal MD Active PREDNISONE 20 MG TABS 2 daily for 5 days then 1 daily for 5 days PREDNISONE 14104229877 No Longer Active Ahmet Carbajal MD Active FLUTICASONE PROPIONATE 50 MCG/ACT SUSP 1 to 2 sprays each nostril daily for allergies FLUTICASONE PROPIONATE 23946127069 Active Tila Valenzuela Active BENADRYL 25 MG CAP 4 po at bedtime for insomnia DIPHENHYDRAMINE HCL 91465579328 No Longer Active Ahmet Carbajal MD Active ADVAIR DISKUS 250-50 MCG/DOSE INH AEPB 1 puff twice a day for asthma FLUTICASONE-SALMETEROL 32073804470 No Longer Active Ahmet Carbajal MD Active KLONOPIN 1 MG ORAL TABS 1 tab po TID CLONAZEPAM 55247080706 No Longer Active Ahmet Carbajal MD Active ABILIFY MAINTENA 400 MG IM SUSR 400mg injection every 26 days ARIPIPRAZOLE 10045633411 No Longer Active Ahmet Carbajal MD Active TRAMADOL HCL 50 MG TABS 1/2-1 tab TID PRN TRAMADOL HCL 39659310790 No Longer Active Ahmet Carbajal MD Active BACTRIM DS 800-160 MG TABS 1 twice a day SULFAMETHOXAZOLE- TRIMETHOPRIM 76104565883 No Longer Active Ahmet Carbajal MD Active PROAIR HFA 108 (90 BASE) MCG/ACT AERS 2 puffs four times a day as needed 2015 ALBUTEROL SULFATE 16990712062 Active Honey Hinton APRN Active MONISTAT 7 COMBO PACK WOODROW 100 & 2 MG-% (9GM) VAG KIT 1 applicatorful per vagina q pm x 7 MICONAZOLE NITRATE 61239873666 No Longer Active Ahmet Carbajal MD Active FLAGYL 500 MG TAB 1 tablet by mouth bid METRONIDAZOLE 21357693444 No Longer Active Ahmet Carbajal MD Active OXYCODONE HCL ER 10 MG ORAL T12A 1/2 tab by mouth every 4 hours prn OXYCODONE HCL 97743452920 No Longer Active Ahmet Carbajal MD Active METHYLPREDNISOLONE 4 MG ORAL TABS po daily METHYLPREDNISOLONE 63598198315 No Longer Active Ahmet Carbajal MD Active LEVOFLOXACIN 500 MG ORAL TABS po daily LEVOFLOXACIN 36018831375 No Longer Active Ahmet Carbajal MD Active VIIBRYD 10 MG ORAL TABS Take 1 tablet once a day VILAZODONE HCL 58096070260 No Longer Active Ahmet Carbajal MD Active TOPAMAX 50 MG ORAL TABS 1 tab twice daily TOPIRAMATE 62838456898 No Longer Active Ahmet Carbajal MD Active DICLOFENAC SODIUM 50 MG TBEC 1 tablet by mouth four times daily PRN Pain 2015 DICLOFENAC SODIUM 06400189938 No Longer Active Ahmet Carbajal MD Active ADZENYS XR-ODT 6.3 MG ORAL TBED 1 tab po daily for ADHD AMPHETAMINE 40953140728 No Longer Active Ahmet Carbajal MD Active CHANTIX 1 MG TABS 1 twice a day to help quit smoking VARENICLINE TARTRATE 80403780397 No Longer Active Dipika Burgos MD Active CHANTIX STARTING MONTH EARNEST 0.5 MG X 11 & 1 MG X 42 TABS take as directed 2015 VARENICLINE TARTRATE 39524115484 No Longer Active Dipika Burgos MD Active TESSALON PERLES 100 MG CAP 1 to 2 tablets by mouth 3 times daily as needed for cough BENZONATATE 08709521392 No Longer Active Luigi Martínez APRN Active IMITREX 50 MG ORAL TABS 0.5 po x 1 PRN Headache. May repeat dose x 1 in 2 hours if needed SUMATRIPTAN SUCCINATE 02069724121 Active Ahmet Carbajal MD Active HYDROCODONE-ACETAMINOPHEN 5-325 MG TABS 1 to 2 four times a day as needed for pain use until can be seen by specialist HYDROCODONE- ACETAMINOPHEN 48059282090 No Longer Active Vishal Hui MD Active PROAIR HFA 108 (90 BASE) MCG/ACT AERS 2 puffs four times a day as needed 2015 ALBUTEROL SULFATE 96949503426 No Longer Active Vishal Hui MD Active PREDNISONE 20 MG TABS 2 daily for 5 days then 1 daily for 5 days PREDNISONE 95653109585 No Longer Active Vishal Hui MD Active ZITHROMAX Z-EARNEST 250 MG TABS 2 today and then 1 daily for 4 days AZITHROMYCIN 11395830324 No Longer Active Vishal Hui MD Active DICLOFENAC POTASSIUM TABS Take 1 tablet twice a day (pt. is not sure of the dose.) DICLOFENAC POTASSIUM TABS 86120069122 No Longer Active Vishal Hui MD Active VERAPAMIL HCL ER 120 MG ORAL CR-TABS Take 1 tablet by mouth twice a day. VERAPAMIL HCL 77053150007 Active Vishal Hui MD Active FLAGYL 500 MG TAB 1 tablet by mouth bid METRONIDAZOLE 95942616681 No Longer Active Vishal Hui MD Active VALIUM 5 MG TAB Take 1-2 tablets daily DIAZEPAM 87677774185 No Longer Active Fabiola Johnson APRN Active METOPROLOL TARTRATE 25 MG ORAL TABS 1/2 tablet twice daily for heart rate and blood pressure METOPROLOL TARTRATE 11021792598 No Longer Active Fabiola Johnson APRN Active MIRALAX ORAL POWD 17GMS DAILY IN WATER POLYETHYLENE GLYCOL 3350 51993069359 Active TAMARA Casey Active MIRALAX PACK 1 po qd PRN Constipation POLYETHYLENE GLYCOL 3350 29367189302 No Longer Active Ahmet Carbajal MD Active MINIPRESS 2 MG CAPS 4 cap po at night PRAZOSIN HCL 67788066435 No Longer Active Ahmet Carbajal MD Active PIROXICAM 20 MG CAPS 1 cap po qd PRN Pain PIROXICAM 95791073757 No Longer Active Ahmet Carbajal MD Active TRAMADOL HCL 50 MG TABS 1-2 po TID PRN Pain TRAMADOL HCL 85244437488 No Longer Active Ahmet Carbajal MD Active METOPROLOL TARTRATE 50 MG TAB 1 po bid METOPROLOL TARTRATE 00819560598 No Longer Active Ahmet Carbajal MD Active ABILIFY 15 MG ORAL TABS 1 tab daily ARIPIPRAZOLE 07609917412 No Longer Active Ahmet Carbajal MD Active PROZAC 20 MG ORAL CAPS 1 tab daily FLUOXETINE HCL 95612991117 No Longer Active Ahmet Carbajal MD Active AMBIEN 5 MG ORAL TABS 1 tab at bedtime ZOLPIDEM TARTRATE 51416099039 No Longer Active Ahmet Carbajal MD Active PREDNISONE 20 MG TAB 2 tabs daily for 4 days, 1 tab daily for 4 days, 1/2 tab daily for 4 days PREDNISONE 97147543432 No Longer Active Ahmet Carbajal MD Active KEFLEX 500 MG CAP 1 po TID x 10 days CEPHALEXIN 61740862680 No Longer Active Vishal Hui MD Active SAPHRIS 5 MG SUBL 1 po bid ASENAPINE MALEATE 11285125530 No Longer Active Luigi Martínez APRN Active LATUDA 80 MG TABS Take one by mouth daily LURASIDONE HCL 24697856485 No Longer Active Pacollina Mauricio NORIEGA Active AMLODIPINE BESYLATE 5 MG TABS 1 tablet by mouth daily AMLODIPINE BESYLATE 37807263025 No Longer Active Pacollina Mauricio NORIEGA Active AMITRIPTYLINE HCL 100 MG TAB one at hs AMITRIPTYLINE HCL 12777241071 No Longer Active Vishal Hui MD Active TRAZODONE HCL 100 MG TAB take 1 at bedtime TRAZODONE HCL 45624192727 No Longer Active Vishal Hui MD Active VYVANSE 40 MG CAPS 1 daily, LISDEXAMFETAMINE DIMESYLATE 15716316114 No Longer Active Vishal Hui MD Active IBUPROFEN 600 MG TAB 1 po TID PRN IBUPROFEN 66375104739 No Longer Active Vishal Hui MD Active PROZAC 20 MG CAP Take one by mouth daily FLUOXETINE HCL 13308495229 No Longer Active Vishal Hui MD Active BACTRIM DS 800-160 MG TABS 1 pill by mouth twice daily SULFAMETHOXAZOLE-TRIMETHOPRIM 57292187533 No Longer Active Sahara Rodriguez MD PhD Active DIFLUCAN 150 MG TAB 1 tablet by mouth daily FLUCONAZOLE 83467432283 No Longer Active Vishal Hui MD Active TIZANIDINE HCL 4 MG TABS 1 po q6hr PRN Muscle Spasm/Back Pain TIZANIDINE HCL 04563767973 Active TAMARA Casey Active CLINDAMYCIN HCL 150 MG CAPS 1 four times a day CLINDAMYCIN HCL 26834480466 No Longer Active Neeraj Collins MD Active KEFLEX 500 MG ORAL CAPS 1 cap QID by mouth CEPHALEXIN 83733132905 No Longer Active Neeraj Collins MD Active DIFLUCAN 150 MG TABS 1 pill every other day x 2 doses FLUCONAZOLE 58880753383 No Longer Active Sahara Rodriguez MD PhD Active MELATONIN 3 MG CAPS 2 po q hs MELATONIN 95086292571 No Longer Active Sahara Rodriguez MD PhD Active MULTIVITAMINS CAPS Take one by mouth daily MULTIPLE VITAMIN 58436432704 No Longer Active Sahara Rodriguez MD PhD Active BACTRIM DS 800-160 MG TAB 1 tab by mouth twice daily TRIMETHOPRIM-SULFAMETHOXAZOLE 35182730849 No Longer Active Sahara Rodriguez MD PhD Active [facility] PROBIOTIC ORAL CHEW 2 daily po PROBIOTIC PRODUCT 25813436403 No Longer Active Sahara Rodriguez MD PhD Active BACTRIM DS 800-160 MG TABS 1 po BID x 7 days SULFAMETHOXAZOLE-TRIMETHOPRIM 10624464195 No Longer Active Vishal Hui MD Active CHANTIX STARTING MONTH EARNEST 0.5 MG X 11 & 1 MG X 42 TABS 0.5mg daily for 3 days , then 0.5mg BID for 4 days, then 1mg BID VARENICLINE TARTRATE 69569031667 No Longer Active TAMARA Gray Active VERAPAMIL HCL CR 120 MG TAB CR 1 po bid VERAPAMIL HCL 57712199714 No Longer Active Vishal Hui MD Active METOPROLOL SUCCINATE 50 MG TB24 1 tablet by mouth daily METOPROLOL SUCCINATE 20815083894 No Longer Active Vishal Hui MD Active SAPHRIS 10 MG SUBL 1 tab po bid ASENAPINE MALEATE 69437759027 No Longer Active Vishal Hui MD Active LISINOPRIL 20 MG TABS 1 tab po qd LISINOPRIL 19914705976 No Longer Active Vishal Hui MD Active LATUDA 20 MG TABS Take one by mouth daily LURASIDONE HCL 39056898893 No Longer Active Vishal Hui MD Active TRAZODONE HCL 50 MG TABS 1/2 tab po qd prn for anxiety TRAZODONE HCL 95974476131 No Longer Active Vishal Hui MD Active OMEPRAZOLE 20 MG TBEC 1 po q a.m. 30min prior to first food intake OMEPRAZOLE 01662340729 Active TAMARA Casey Active RANITIDINE HCL 150 MG CAPS 1 twice a day RANITIDINE HCL 55748847890 Active Lynda Xiao LPN Active LINZESS 290 MCG CAPS Take one by mouth daily LINACLOTIDE 37591927251 No Longer Active Vishal Hui MD Active SAPHRIS 5 MG SUBL 1 tab po qd ASENAPINE MALEATE 36120284867 No Longer Active Vishal Hui MD Active ZALEPLON 10 MG CAPS 1 cap po every other night ZALEPLON 81428900657 No Longer Active Vishal Hui MD Active LYRICA 50 MG CAPS 1 tab po TID PREGABALIN 46420730533 No Longer Active Vishal Hui MD Active LORATADINE 10 MG TABS 1 tab po qd LORATADINE 84132786501 No Longer Active Vishal Hui MD Active VERAPAMIL HCL ER 180 MG CR-TABS 1 tab po bid VERAPAMIL HCL 31808725573 No Longer Active Vishal Hui MD Active MIRALAX POWD 1 capfull once daily POLYETHYLENE GLYCOL 3350 64777235765 No Longer Active Vishal Hui MD Active PREDNISONE 20 MG TABS 1 tab po qd PREDNISONE 32833256529 No Longer Active Renzo Thornton DO Active LEVOFLOXACIN 500 MG TABS 1 tab po qd LEVOFLOXACIN 70769857558 No Longer Active Renzo Thornton DO Active BUSPIRONE HCL 15 MG TABS 1 tab po TID BUSPIRONE HCL 80998910025 No Longer Active Renzo Thornton DO Active BENZTROPINE MESYLATE 1 MG TABS 1 tab po qd BENZTROPINE MESYLATE 33680026183 No Longer Active Renzo Thornton DO Active ATENOLOL 25 MG TABS 1 tab po qd ATENOLOL 23951561397 No Longer Active Renzo Thornton DO Active ESCITALOPRAM OXALATE 20 MG TABS 1 tab po qd ESCITALOPRAM OXALATE 04224070174 No Longer Active Renzo Thornton DO Active ADVAIR DISKUS 250-50 MCG/DOSE AEPB 1 puff BID FLUTICASONE-SALMETEROL 47519352863 No Longer Active Renzo Thornton DO Active PREDNISONE 20 MG TAB 2 tabs daily for 3 days, 1 tab daily for 3 days, 1/2 tab daily for 2 days PREDNISONE 73051879279 No Longer Active Vishal Hui MD Active CEFDINIR 300 MG CAPS by mouth twice a day CEFDINIR 85855991413 No Longer Active Vishal Hui MD Active LANSOPRAZOLE 30 MG CPDR 1 cap po qd LANSOPRAZOLE 48049538764 No Longer Active Vishal Hui MD Active BACLOFEN 20 MG TABS 1 tab po tid BACLOFEN 71327404592 No Longer Active Vishal Hui MD Active ADVAIR DISKUS 250-50 MCG/DOSE AEPB 1 puff BID ADVAIR DISKUS 250-50 MCG/DOSE AEPB FLUTICASONE-SALMETEROL Inactive ESCITALOPRAM OXALATE 20 MG TABS 1 tab po qd ESCITALOPRAM OXALATE 20 MG TABS 266264 ESCITALOPRAM OXALATE Inactive ATENOLOL 25 MG TABS 1 tab po qd ATENOLOL 25 MG TABS 661975 ATENOLOL Inactive BENZTROPINE MESYLATE 1 MG TABS 1 tab po qd BENZTROPINE MESYLATE 1 MG TABS 198239 BENZTROPINE MESYLATE Inactive BUSPIRONE HCL 15 MG TABS 1 tab po TID BUSPIRONE HCL 15 MG TABS 452109 BUSPIRONE HCL Inactive LEVOFLOXACIN 500 MG TABS 1 tab po qd LEVOFLOXACIN 500 MG TABS 150365 LEVOFLOXACIN Inactive PREDNISONE 20 MG TABS 1 tab po qd PREDNISONE 20 MG TABS 963785 PREDNISONE Inactive MIRALAX POWD 1 capfull once daily MIRALAX POWD 520214 POLYETHYLENE GLYCOL 3350 Inactive VERAPAMIL HCL ER 180 MG CR-TABS 1 tab po bid VERAPAMIL HCL ER 180 MG CR-TABS VERAPAMIL HCL Inactive LORATADINE 10 MG TABS 1 tab po qd LORATADINE 10 MG TABS 790247 LORATADINE Inactive LYRICA 50 MG CAPS 1 tab po TID LYRICA 50 MG CAPS PREGABALIN Inactive ZALEPLON 10 MG CAPS 1 cap po every other night ZALEPLON 10 MG CAPS 053385 ZALEPLON Inactive SAPHRIS 5 MG SUBL 1 tab po qd SAPHRIS 5 MG SUBL ASENAPINE MALEATE Inactive TRAZODONE HCL 50 MG TABS 1/2 tab po qd prn for anxiety TRAZODONE HCL 50 MG TABS 381817 TRAZODONE HCL Inactive LATUDA 20 MG TABS Take one by mouth daily LATUDA 20 MG TABS LURASIDONE HCL Inactive LISINOPRIL 20 MG TABS 1 tab po qd LISINOPRIL 20 MG TABS 351229 LISINOPRIL Inactive SAPHRIS 10 MG SUBL 1 [...] twice daily BACTRIM DS 800-160 MG TAB 084639 TRIMETHOPRIM-SULFAMETHOXAZOLE Inactive MULTIVITAMINS CAPS Take one by mouth daily MULTIVITAMINS CAPS MULTIPLE VITAMIN Inactive MELATONIN 3 MG CAPS 2 po q hs MELATONIN 3 MG CAPS 890332 MELATONIN Inactive KEFLEX 500 MG ORAL CAPS 1 cap QID by mouth KEFLEX 500 MG ORAL CAPS 947534 CEPHALEXIN Inactive CLINDAMYCIN HCL 150 MG CAPS 1 four times a day CLINDAMYCIN HCL 150 MG CAPS 003249 CLINDAMYCIN HCL Inactive DIFLUCAN 150 MG TAB 1 tablet by mouth daily DIFLUCAN 150 MG TAB 631434 FLUCONAZOLE Inactive PROZAC 20 MG CAP Take one by mouth daily PROZAC 20 MG CAP 691735 FLUOXETINE HCL Inactive IBUPROFEN 600 MG TAB 1 po TID PRN IBUPROFEN 600 MG TAB 400227 IBUPROFEN Inactive VYVANSE 40 MG CAPS 1 daily, VYVANSE 40 MG CAPS LISDEXAMFETAMINE DIMESYLATE Inactive TRAZODONE HCL 100 MG TAB take 1 at bedtime TRAZODONE HCL 100 MG TAB 168456 TRAZODONE HCL Inactive AMITRIPTYLINE HCL 100 MG TAB one at hs AMITRIPTYLINE HCL 100 MG TAB 531272 AMITRIPTYLINE HCL Inactive AMLODIPINE BESYLATE 5 MG TABS 1 tablet by mouth daily AMLODIPINE BESYLATE 5 MG TABS 356888 AMLODIPINE BESYLATE Inactive LATUDA 80 MG TABS Take one by mouth daily LATUDA 80 MG TABS LURASIDONE HCL Inactive SAPHRIS 5 MG SUBL 1 po bid SAPHRIS 5 MG SUBL ASENAPINE MALEATE Inactive PREDNISONE 20 MG TAB 2 tabs daily for 4 days, 1 tab daily for 4 days, 1/2 tab daily for 4 days PREDNISONE 20 MG TAB 439438 PREDNISONE Inactive AMBIEN 5 MG ORAL TABS 1 tab at bedtime AMBIEN 5 MG ORAL TABS 216597 ZOLPIDEM TARTRATE Inactive PROZAC 20 MG ORAL CAPS 1 tab daily PROZAC 20 MG ORAL CAPS 349085 FLUOXETINE HCL Inactive ABILIFY 15 MG ORAL TABS 1 tab daily ABILIFY 15 MG ORAL TABS 960572 ARIPIPRAZOLE Inactive METOPROLOL TARTRATE 50 MG TAB 1 po bid METOPROLOL TARTRATE 50 MG TAB 538508 METOPROLOL TARTRATE Inactive TRAMADOL HCL 50 MG TABS 1-2 po TID PRN Pain TRAMADOL HCL 50 MG TABS 745547 TRAMADOL HCL Inactive PIROXICAM 20 MG CAPS 1 cap po qd PRN Pain PIROXICAM 20 MG CAPS 529245 PIROXICAM Inactive MINIPRESS 2 MG CAPS 4 cap po at night MINIPRESS 2 MG CAPS 405606 PRAZOSIN HCL Inactive MIRALAX PACK 1 po qd PRN Constipation MIRALAX PACK 537757 POLYETHYLENE GLYCOL 3350 Inactive METOPROLOL TARTRATE 25 MG ORAL TABS 1/2 tablet twice daily for heart rate and blood pressure METOPROLOL TARTRATE 25 MG ORAL TABS 000089 METOPROLOL TARTRATE Inactive VALIUM 5 MG TAB Take 1-2 tablets daily VALIUM 5 MG TAB 435258 DIAZEPAM Inactive FLAGYL 500 MG TAB 1 tablet by mouth bid FLAGYL 500 MG TAB 350320 METRONIDAZOLE Inactive DICLOFENAC POTASSIUM TABS Take 1 tablet twice a day (pt. is not sure of the dose.) DICLOFENAC POTASSIUM TABS DICLOFENAC POTASSIUM TABS Inactive ZITHROMAX Z-EARNEST 250 MG TABS 2 today and then 1 daily for 4 days ZITHROMAX Z-EARNEST 250 MG TABS 1874932 AZITHROMYCIN Inactive PREDNISONE 20 MG TABS 2 daily for 5 days then 1 daily for 5 days PREDNISONE 20 MG TABS 020149 PREDNISONE Inactive PROAIR HFA 108 (90 BASE) MCG/ACT AERS 2 puffs four times a day as needed 2015 PROAIR HFA 108 (90 BASE) MCG/ACT AERS ALBUTEROL SULFATE Inactive HYDROCODONE-ACETAMINOPHEN 5-325 MG TABS 1 to 2 four times a day as needed for pain use until can be seen by specialist HYDROCODONE- ACETAMINOPHEN 5-325 MG TABS 756004 HYDROCODONE-ACETAMINOPHEN Inactive TESSALON PERLES 100 MG CAP 1 to 2 tablets by mouth 3 times daily as needed for cough TESSALON PERLES 100 MG CAP 304984 BENZONATATE Inactive CHANTIX STARTING MONTH EARNEST 0.5 [...] Pain 2015 DICLOFENAC SODIUM 50 MG TBEC 658258 DICLOFENAC SODIUM Inactive TOPAMAX 50 MG ORAL TABS 1 tab twice daily TOPAMAX 50 MG ORAL TABS 322357 TOPIRAMATE Inactive VIIBRYD 10 MG ORAL TABS Take 1 tablet once a day VIIBRYD 10 MG ORAL TABS VILAZODONE HCL Inactive LEVOFLOXACIN 500 MG ORAL TABS po daily LEVOFLOXACIN 500 MG ORAL TABS 245206 LEVOFLOXACIN Inactive METHYLPREDNISOLONE 4 MG ORAL TABS po daily METHYLPREDNISOLONE 4 MG ORAL TABS 806055 METHYLPREDNISOLONE Inactive OXYCODONE HCL ER 10 MG ORAL T12A 1/2 tab by mouth every 4 hours prn OXYCODONE HCL ER 10 MG ORAL T12A OXYCODONE HCL Inactive FLAGYL 500 MG TAB 1 tablet by mouth bid FLAGYL 500 MG TAB 439883 METRONIDAZOLE Inactive MONISTAT 7 COMBO PACK WOODROW 100 & 2 MG-% (9GM) VAG KIT 1 applicatorful per vagina q pm x 7 MONISTAT 7 COMBO PACK WOODROW 100 & 2 MG-% (9GM) VAG KIT MICONAZOLE NITRATE Inactive BACTRIM DS 800-160 MG TABS 1 twice a day BACTRIM DS 800-160 MG TABS 395663 SULFAMETHOXAZOLE-TRIMETHOPRIM Inactive TRAMADOL HCL 50 MG TABS 1/2-1 tab TID PRN TRAMADOL HCL 50 MG TABS 580258 TRAMADOL HCL Inactive ABILIFY MAINTENA 400 MG IM SUSR 400mg injection every 26 days ABILIFY MAINTENA 400 MG IM SUSR ARIPIPRAZOLE Inactive KLONOPIN 1 MG ORAL TABS 1 tab po TID KLONOPIN 1 MG ORAL TABS 818693 CLONAZEPAM Inactive ADVAIR DISKUS 250-50 MCG/DOSE INH AEPB 1 puff twice a day for asthma ADVAIR DISKUS 250-50 MCG/DOSE INH AEPB FLUTICASONE- SALMETEROL Inactive BENADRYL 25 MG CAP 4 po at bedtime for insomnia BENADRYL 25 MG CAP DIPHENHYDRAMINE HCL Inactive PREDNISONE 20 MG TABS 2 daily for 5 days then 1 daily for 5 days PREDNISONE 20 MG TABS 512712 PREDNISONE Inactive HYDROCODONE-ACETAMINOPHEN 5-325 MG ORAL TABS 1 tab two times a day HYDROCODONE-ACETAMINOPHEN 5-325 MG ORAL TABS 976563 HYDROCODONE-ACETAMINOPHEN Inactive ZITHROMAX Z-EARNEST 250 MG TABS 2 today and then 1 daily for 4 days ZITHROMAX Z-EARNEST 250 MG TABS 7332046 AZITHROMYCIN Inactive GUAIFENESIN-CODEINE 100-10 MG/5ML SYRP 5ml every 4 to 6 hours as needed for cough GUAIFENESIN-CODEINE 100-10 MG/5ML SYRP 435484 GUAIFENESIN-CODEINE Inactive HALOPERIDOL 10 MG ORAL TABS 1 tab q.d HALOPERIDOL 10 MG ORAL TABS 277581 HALOPERIDOL Inactive ASPIRIN 325 MG ORAL TABS 1 tab q.d ASPIRIN 325 MG ORAL TABS 222905 ASPIRIN Inactive FLUTICASONE PROPIONATE 50 MCG/ACT SUSP 2 sprays each nostril daily before bed. FLUTICASONE PROPIONATE 50 MCG/ACT SUSP 1623484 FLUTICASONE PROPIONATE Inactive ZOFRAN 4 MG TABS 1 po q6hr PRN Nausea ZOFRAN 4 MG TABS 511554 ONDANSETRON HCL Inactive KEFLEX 500 MG CAP 1 po qid KEFLEX 500 MG CAP 321542 CEPHALEXIN Inactive ACETAMINOPHEN-CODEINE 120-12 MG/5ML SOLN 5 ml by mouth every 4-6 hours if needed for cough ACETAMINOPHEN-CODEINE 120-12 MG/5ML SOLN 141098 ACETAMINOPHEN-CODEINE Inactive PREDNISONE 20 MG TAB 1 tablet daily x 4 days PREDNISONE 20 MG TAB 084820 PREDNISONE Inactive TROPICAMIDE 0.5 % OPHTH SOLN 1 drop PRN eye spasms TROPICAMIDE 0.5 % OPHTH SOLN 644539 TROPICAMIDE Inactive LEVAQUIN 500 MG TABS 1 daily for infection LEVAQUIN 500 MG TABS 539528 LEVOFLOXACIN Inactive PREDNISONE 10 MG TABS 2 daily for 5 days then 1 daily for 5 days PREDNISONE 10 MG TABS 940767 PREDNISONE Inactive EQ NICOTINE 21 MG/24HR TRANS [...] LINZESS 290 MCG ORAL CAPS LINACLOTIDE Inactive CEFDINIR 300 MG CAPS by mouth twice a day CEFDINIR 300 MG CAPS 817708 CEFDINIR Inactive PREDNISONE 20 MG TAB 2 tabs daily for 3 days, 1 tab daily for 3 days, 1/2 tab daily for 2 days PREDNISONE 20 MG TAB 479295 PREDNISONE Inactive BACTRIM DS 800-160 MG TABS 1 po BID x 7 days BACTRIM DS 800-160 MG TABS [id number] SULFAMETHOXAZOLE-TRIMETHOPRIM Inactive DIFLUCAN 150 MG TABS 1 pill every other day x 2 doses DIFLUCAN 150 MG TABS 553473 FLUCONAZOLE Inactive BACTRIM DS 800-160 MG TABS 1 pill by mouth twice daily BACTRIM DS 800-160 MG TABS 522058 SULFAMETHOXAZOLE-TRIMETHOPRIM Inactive KEFLEX 500 MG CAP 1 po TID x 10 days KEFLEX 500 MG CAP 264642 CEPHALEXIN Inactive Advance Directives Directive Description Start [...] % 11.0-15.0 platelet count 443 THOUSAND/UL 10*3/mm3 624-038 8788/03/01 mean platelet volume 8.2 fL 7.5-12.5 leukocyte [...] % 11.0-15.0 platelet count 349 THOUSAND/UL 10*3/mm3 303-011 1789/04/12 mean platelet volume 8.4 fL 7.5-12.5 Lab [...] 369 10^3/MM^3 10*3/mm3 [phone] Lab Report: Chlamydia/GC APTIMA/64749 - Lab chlamydia DNA probe NOT DETECTED NOT DETECTED Lab Report: Chlamydia/GC APTIMA/50108 - Microbiology Neisseria gonorrhoeae DNA probe NOT DETECTED NOT DETECTED Lab Report: Chlamydia/GC APTIMA/20095, Urinalysis, Complete, with Reflex ... - Lab chlamydia DNA probe NOT DETECTED NOT DETECTED Lab Report: Chlamydia/GC APTIMA/18050, Urinalysis, Complete, with Reflex ... - Microbiology Neisseria gonorrhoeae DNA probe NOT DETECTED NOT DETECTED Lab Report: Chlamydia/GC APTIMA/30333, Urinalysis, Complete, with Reflex ... - Urinalysis microalbumin/total urine volume 2 mg/L Units converted. See lab report for original value. microalbumin/creatinine ratio, urine 9 MCG/MG CREAT mg/L <30 Lab Report: Comp. Metabolic Panel - Chemistry sodium, serum 140 mmol/L [phone]/08/08 carbon dioxide, venous blood 33.7 mmol/L 21.0-32.0 [...] Trace Negative nitrite, urine, semiquantitative Negative Negative pH, urine, semiquantitative 6.0 5.0-8.5 specific gravity, urine 1.025 1.000-1.030 appearance, urine Clear Clear urobilinogen, urine, semiquantitative (dipstick) 0.2 Normal leukocyte [...] semiquantitative 6.0 5.0-8.5 urine color Yellow Colorless;Lightyellow;Straw;Yellow Encounters Code Encounter Date Provider Facility CPT-71661 Level 4 Est. Patient 10:49:34 CDT Suzan Boo [facility]-27123 Level 3 Est. Patient 10:00:25 CDT Suzan Boo [facility]-92873 Level 3 Est. Patient 10:29:30 CDT Suzna Boo [facility]-83641 Level 3 Est. Patient 11:04:38 CDT Renzo Thornton [facility]-34936 Level 3 Est. Patient 11:15:58 [employer] Renzo Thornton [facility]-95510 Level 3 Est. Patient 15:28:23 [employer] Suzan Boo [facility] CPT-77591 Level 4 Est. Patient 10:20:54 [employer] Suzan Boo [facility]-23851 Level 3 Est. Patient 11:47:37 [employer] Ahmet Carbajal MD [facility]-42249 Level 3 Est. Patient 10:40:11 [employer] Ahmet Carbajal MD [facility]-25021 Level 3 Est. Patient 15:07:06 [employer] Neeraj Collins MD [facility]-85399 Level 4 Est. Patient 14:45:00 [employer] Ahmet aCrbajal MD [facility]-85595 Level 3 Est. Patient 13:59:59 CDT Luigi Martínez [facility]-72519 Level 3 Est. Patient 18:18:53 CDT Neeraj Collins MD [facility]-79156 Level 3 Est. Patient 15:50:44 CDT Vishal Hui MD [facility] CPT-84951 Level 3 Est. Patient 11:36:17 CDT Ahmet Carbajal MD [facility] CPT-89897 Level 3 Est. Patient 13:29:16 CDT Vishal Hui MD [facility] CPT-86311 Level 3 Est. Patient 14:27:52 CDT Neeraj Collins MD [facility] CPT-31479 Level 3 Est. Patient 08:56:03 CDT Luigi Martínez [facility] CPT-86764 Level 4 Est. Patient 12:11:48 CDT Fabiola Johnson [facility] CPT-10519 Level 3 New Patient 16:53:37 CDT Albert Caldera MD [facility] CPT-10888 Level 3 Est. Patient 11:25:49 CDT Renzo Thornton DO [facility] CPT-75463 Level 3 Est. Patient 15:22:01 CDT Ahmet Carbajal MD [facility] CPT-96091 Level 4 Est. Patient 09:00:51 [employer] Vishal Hui MD [facility] CPT-19874 Level 3 Est. Patient 11:37:33 [employer] Vishal Hui MD [facility] CPT-89605 Level 3 Est. Patient 08:41:09 [employer] Vishal Hui MD [facility] CPT-91664 Level 4 Est. Patient 10:19:35 [employer] Vishal Hui MD [facility] CPT-21245 Level 3 Est. Patient 13:35:45 CDT Vishal Hui MD [facility] CPT-22178 Level 4 Est. Patient 10:08:37 CDT Vishal Hui MD [facility] CPT-90726 Level 3 Est. Patient 11:22:10 CDT Vishal Hui MD [facility] CPT-86305 Level 3 Est. Patient 11:03:32 CDT Sahara Rodriguez MD [facility] CPT-60750 Level 3 Est. Patient 09:41:35 CDT Vishal Hui MD [facility] CPT-10489 Level 3 Est. Patient 12:00:41 CDT Neeraj Collins MD [facility] CPT-55575 Level 3 Est. Patient 09:16:24 CDT Vishal Hui MD [facility] CPT-97286 Level 4 Est. Patient 13:59:09 CDT Neeraj Collins MD [facility]-46987 Level 3 Est. Patient 15:19:43 CDT Renzo Thornton DO [facility] CPT-05827 Level 3 Est. Patient 18:10:26 CDT Sahara Rodriguez MD [facility]-80073 Level 3 Est. Patient 14:49:50 CDT Vishal Hui MD [facility] CPT-84077 Level 4 Est. Patient 18:41:46 CDT Neeraj Collins MD [facility]-41466 Level 4 Est. Patient 09:18:38 [employer] Vishal Hui MD [facility] CPT-35241 Level 3 Est. Patient 14:43:55 [employer] Vishal Hui MD [facility] CPT-84398 Level 3 Est. Patient 15:26:33 [employer] Sahara Rodriguez MD PhD [facility] CPT-96030 Level 3 Est. Patient 10:32:14 [employer] Vishal Hui MD [facility]-25966 Level 3 Est. Patient 15:12:52 [employer] Vishal Hui MD [facility] CPT-21607 Level 4 Est. Patient 09:19:27 CDT Vishal Hui MD [facility]-36039 Level 3 Est. Patient 15:53:00 CDT Renzo Thornton [facility] CPT-94766 Level 3 Est. Patient 15:50:30 CDT Renzo Thornton [facility] CPT-61261 Level 3 Est. Patient 16:55:24 CDT Vishal Hui MD [facility] Procedures Code Procedure Name Date Entry Date Standard Description CPT-90266 Venipuncture Draw Fee 08:41:12 CDT CPT-38168 Abd compl w upright - XRAY USE ONLY 10:27:59 CDT 06/28 CPT-29364 Smoking Cessation counseling 11:15:58 [employer] CPT-G0439 [facility] Annual Wellness Exam 09:30:58 [employer] CPT-99930 TSH - LAB USE ONLY 08:50:26 [employer] CPT-14397 CBC - LAB USE ONLY 08:50:26 [employer] CPT-09394 Venipuncture Draw Fee 08:50:26 [employer] CPT-29909 Abx/Therapy Injection 17:34:30 [employer] CPT-46556 Nexplanon Removal with Reinsertion 14:09:32 CDT CPT-J7307 Nexplanon (Implant) 14:09:32 CDT CPT-OV Office Visit 14:09:32 CDT CPT-44859 UA w micro - LAB USE ONLY 16:21:13 CDT CPT-88800 Wet Mount - LAB USE ONLY 16:21:13 CDT CPT-62280 First Vx - Ix admin for Medicare patients 14:37:47 CDT CPT-69834 Fluzone Preservative Free Intramuscular Suspension 14:37 :47 CDT CPT-30355 Abx/Therapy Injection 13:54:22 CDT CPT-44145 Abx/Therapy Injection 08:47:09 CDT CPT-60100 Abx/Therapy Injection 13:29:56 CDT CPT-76453 Abx/Therapy Injection 08:36:16 CDT CPT-42086 Wet Mount - LAB USE ONLY 17:44:58 CDT CPT-63698 UA w micro - LAB USE ONLY 17:44:58 CDT CPT-58535 CMP - LAB USE ONLY 17:44:58 CDT CPT-32686 Venipuncture Draw Fee 17:44:58 CDT CPT-55471 Cervical Min 4V - XRAY USE ONLY 09:01:40 CDT CPT-54873 Chest 2V Frontal and Lat - XRAY USE ONLY 11:06:31 CDT CPT-93621 EKG Trac and Interp - XRAY USE ONLY 11:31:43 CDT 08/26 CPT-J3420 Vitamin B12 1000mcg (Cyanocobalamin) 08:10:26 [employer] 04/12 CPT-26989 Abx/Therapy Injection 08:10:26 [employer] CPT-G0438 Initial Annual Wellness Exam 19:01:01 [employer] CPT-J3420 Vitamin B12 1000mcg (Cyanocobalamin) 16:57:46 CDT 08/14 CPT-33118 Recombivax HB Injection Suspension 5 MCG/0.5ML 08:37:50 [employer] CPT-91002 Immunization Single Admin 08:37:50 [employer] CPT-J3420 Vitamin B12 1000mcg (Cyanocobalamin) 08:32:16 [employer] 03/11 CPT-56766 Abx/Therapy Injection 08:32:16 [employer] CPT-07029 Chest 2V Frontal and Lat 11:46:38 [employer] CPT-85173 Venipuncture Draw Fee 09:12:45 [employer] CPT-J3420 Vitamin B12 1000mcg (Cyanocobalamin) 08:50:15 [employer] 02/08 CPT-18293 Abx/Therapy Injection 08:50:15 [employer] CPT-Cryo Cryotherapy 10:19:35 [employer] CPT-000 Give Appropriate Flu Vaccine 09:22:16 CDT CPT-J3420 Vitamin B12 1000mcg (Cyanocobalamin) 19:08:57 CDT 01/11 CPT-76522 Abx/Therapy Injection 19:08:57 CDT CPT-J3420 Vitamin B12 1000mcg (Cyanocobalamin) 08:19:08 CDT 12/11 CPT-13518 Abx/Therapy Injection 08:19:08 CDT CPT-J3420 Vitamin B12 1000mcg (Cyanocobalamin) 14:48:00 CDT 11/09 CPT-53666 Abx/Therapy Injection 14:47:59 CDT CPT-J3420 Vitamin B12 1000mcg (Cyanocobalamin) 08:34:04 CDT 10/09 CPT-11491 Abx/Therapy Injection 08:34:04 CDT CPT-J3420 Vitamin B12 1000mcg (Cyanocobalamin) 09:18:52 CDT 09/11 CPT-13472 Abx/Therapy Injection 09:18:52 CDT CPT-J3420 Vitamin B12 1000mcg (Cyanocobalamin) 08:35:44 CDT 09/04 CPT-95972 Abx/Therapy Injection 08:35:44 CDT CPT-51882 Immunization Single Admin 11:07:16 CDT CPT-85609 Hepatitis B adult IM 11:07:16 CDT CPT-J3420 Vitamin B12 1000mcg (Cyanocobalamin) 11:00:49 CDT 08/28 CPT-J1040 Depo Medrol 80 mg (Methyl Prednisolone Acetate) 11:00: 49 CDT CPT-62348 Abx/Therapy Injection 11:00:49 CDT CPT-J1040 Depo Medrol 80 mg (Methyl Prednisolone Acetate) 09:16: 23 CDT CPT-J3420 Vitamin B12 1000mcg (Cyanocobalamin) 08:27:05 CDT 08/20 CPT-71302 Abx/Therapy Injection 08:27:05 CDT CPT-74581 Recombivax HB Injection Suspension 5 MCG/0.5ML 10:00:41 CDT CPT-61444 Administration single or combination vaccine inc oral 10 :00:41 CDT CPT-15369 Sono transvag pelvis non OB uterus ovaries cervix 16:36: 57 CDT CPT-90922 LS spine comp w obliq 09:50:55 [employer] CPT-06780 Abd compl w upright 09:50:55 [employer] CPT-J1100 Decadron 4mg (Dexamethasone) 15:51:24 [employer] CPT-J1030 Depo Medrol 40 mg (Methyl Prednisolone Acetate) 15:51: 24 [employer] CPT-77157 Abx/Therapy Injection 15:51:24 [employer] CPT-J1100 Decadron 4mg (Dexamethasone) 15:26:33 [employer] CPT-J1030 Depo Medrol 40 mg (Methyl Prednisolone Acetate) 15:26: 33 [employer] CPT-18317 Sono retroperitoneal complete kidneys and bladder 17:15: 30 CDT CPT-86644 Abd compl w upright 16:09:25 CDT CPT-J1100 Decadron 8mg (Dexamethasone) 17:07:57 CDT CPT-27793 Abx/Therapy Injection 17:07:57 CDT CPT-J1100 Decadron 8mg (Dexamethasone) 16:55:24 CDT CPT-88907 Chest 2V Frontal and Lat 16:32:44 CDT
--- OUTSIDE RECORDS SUMMARY | 2016-11-04 17:37 | XMS REPORT | Clinical Summary ---
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 Morbid obesity 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 Active Juliet Kimbrough LIGHT TECHNICIAN Dependence on other enabling machines and devices [...] removal of sutures ICD-V58.32 Jim Hui MD Personality change ICD-301.9 Inactive Vishal Hui MD Leukocytosis ICD-288.60 Inactive Vishal Hui MD UTI ICD-599.0 Inactive Vishal Hui MD Elevated blood glucose ICD-790.29 Inactive Vishal Hui MD Hot flashes ICD-627.2 Inactive Vishal Hui MD Medication List Medication Instructions Start Date Stop Date Generic Name NDC Status Provider Patient Instruction ABILIFY MAINTENA 400 MG IM SUSR Injection once per month ARIPIPRAZOLE 69883900989 Active Juliet Kimbrough APRN Active PREDNISONE 20 MG TAB 2 tabs daily for 4 days, 1 tab daily for 4 days, 1/2 tab daily for 4 days PREDNISONE 64145219299 Active Vishal Hui MD Active IMITREX 50 MG ORAL TABS 1/2 tab every 6 hours prn SUMATRIPTAN SUCCINATE 74824391574 Active Jillina Mauricio NORIEGA Active AMBIEN 5 MG ORAL TABS 1 tab at bedtime ZOLPIDEM TARTRATE 86626035524 Active Pacollina Maurciio WALTERSN Active PROZAC 20 MG ORAL CAPS 1 tab daily FLUOXETINE HCL 12649871205 Active Tataina Mauricio WALTERSN Active ABILIFY 15 MG ORAL TABS 1 tab daily ARIPIPRAZOLE 20464319328 Active Pacollina Mauricio WALTERSN Active MINIPRESS 2 MG CAPS 4 cap po at night PRAZOSIN HCL 62670159216 Active Jillina Mauricio WALTERSN Active TOPAMAX 50 MG ORAL TABS 1 tab twice daily TOPIRAMATE 23840221802 Active Jillina Mauricio WALTERSN Active SAPHRIS 5 MG SUBL 1 po bid ASENAPINE MALEATE 83979781737 No Longer Active Jillina Fralebron WALTERSN Active LATUDA 80 MG TABS Take one by mouth daily LURASIDONE HCL 86294420239 No Longer Active Luigi Martínez APRN Active AMLODIPINE BESYLATE 5 MG TABS 1 tablet by mouth daily AMLODIPINE BESYLATE 24774986265 No Longer Active Luigi Martínez APRN Active AMITRIPTYLINE HCL 100 MG TAB one at hs AMITRIPTYLINE HCL 59322731323 No Longer Active Vishal Hui MD Active TRAZODONE HCL 100 MG TAB take 1 at bedtime TRAZODONE HCL 32546443457 No Longer Active Vishal Hui MD Active VYVANSE 40 MG CAPS 1 daily, LISDEXAMFETAMINE DIMESYLATE 80621678015 No Longer Active Vishal Hui MD Active IBUPROFEN 600 MG TAB 1 po TID PRN IBUPROFEN 86041221575 No Longer Active Vishal Hui MD Active MIRALAX PACK 1 po qd PRN Constipation POLYETHYLENE GLYCOL 3350 60717942225 Active Vishal Hui MD Active PROZAC 20 MG CAP Take one by mouth daily FLUOXETINE HCL 07776121834 No Longer Active Vishal Hui MD Active ZOFRAN 4 MG TABS 1 po q6hr PRN Nausea ONDANSETRON HCL Active Vishal Hui MD Active BACTRIM DS 800-160 MG TABS 1 pill by mouth twice daily SULFAMETHOXAZOLE-TRIMETHOPRIM 05208226416 No Longer Active Sahara Rodriguez MD PhD Active DIFLUCAN 150 MG TAB 1 tablet by mouth daily FLUCONAZOLE 37657116903 No Longer Active Vishal Hui MD Active TIZANIDINE HCL 4 MG TABS 1 po q6hr PRN Muscle Spasm/Back Pain TIZANIDINE HCL 56508627418 Active Luigi Martínez APRN Active CLINDAMYCIN HCL 150 MG CAPS 1 four times a day CLINDAMYCIN HCL 86812904560 No Longer Active Neeraj Collins MD Active KEFLEX 500 MG ORAL CAPS 1 cap QID by mouth CEPHALEXIN 64343098924 No Longer Active Neeraj Collins MD Active DIFLUCAN 150 MG TABS 1 pill every other day x 2 doses FLUCONAZOLE 62633818834 No Longer Active Sahara Rodriguez MD PhD Active MELATONIN 3 MG CAPS 2 po q hs MELATONIN 56716617293 No Longer Active Sahara Rodriguez MD PhD Active MULTIVITAMINS CAPS Take one by mouth daily MULTIPLE VITAMIN 59319441562 No Longer Active Sahara Rodriguez MD PhD Active BACTRIM DS 800-160 MG TAB 1 tab by mouth twice daily TRIMETHOPRIM-SULFAMETHOXAZOLE 82364460919 No Longer Active Sahara Rodriguez MD PhD Active [facility] PROBIOTIC ORAL CHEW 2 daily po PROBIOTIC PRODUCT 19871938748 No Longer Active Sahara Rodriguez MD PhD Active BACTRIM DS 800-160 MG TABS 1 po BID x 7 days SULFAMETHOXAZOLE-TRIMETHOPRIM 15346670330 No Longer Active Vishal Hui MD Active CHANTIX STARTING MONTH EARNEST 0.5 MG X 11 & 1 MG X 42 TABS 0.5mg daily for 3 days , then 0.5mg BID for 4 days, then 1mg BID VARENICLINE TARTRATE 41274680479 No Longer Active TAMARA Gray Active METOPROLOL TARTRATE 50 MG TAB 1 po bid METOPROLOL TARTRATE 56040639868 Active Vishal Hui MD Active VERAPAMIL HCL CR 120 MG TAB CR 1 po bid VERAPAMIL HCL 03024689456 No Longer Active Vishal Hui MD Active METOPROLOL SUCCINATE 50 MG TB24 1 tablet by mouth daily METOPROLOL SUCCINATE 75499723563 No Longer Active Vishal Hui MD Active TRAMADOL HCL 50 MG TABS 1-2 po TID PRN Pain TRAMADOL HCL 86086347902 Active Luigi Martínez APRN Active SAPHRIS 10 MG SUBL 1 tab po bid ASENAPINE MALEATE 26806832908 No Longer Active Vishal Hui MD Active LISINOPRIL 20 MG TABS 1 tab po qd LISINOPRIL 45112146176 No Longer Active Vishal Hui MD Active BENADRYL 25 MG CAP 2 po tid prn anxiety DIPHENHYDRAMINE HCL 52768965802 Active Vishal Hui MD Active LATUDA 20 MG TABS Take one by mouth daily LURASIDONE HCL 37858637383 No Longer Active Vishal Hui MD Active TRAZODONE HCL 50 MG TABS 1/2 tab po qd prn for anxiety TRAZODONE HCL 50111507657 No Longer Active Vishal Hui MD Active PIROXICAM 20 MG CAPS 1 cap po qd PRN Pain PIROXICAM 40527085075 Active Vishal Hui MD Active OMEPRAZOLE 20 MG TBEC 1 po q a.m. 30min prior to first food intake OMEPRAZOLE 80113758436 Active Vishal Hui MD Active RANITIDINE HCL 150 MG CAPS 1 twice a day RANITIDINE HCL 30816363339 Active Vishal Hui MD Active LINZESS 290 MCG CAPS Take one by mouth daily LINACLOTIDE 93559338209 No Longer Active Vishal Hui MD Active SAPHRIS 5 MG SUBL 1 tab po qd ASENAPINE MALEATE 14149676198 No Longer Active Vishal Hui MD Active ZALEPLON 10 MG CAPS 1 cap po every other night ZALEPLON 37404038099 No Longer Active Vishal Hui MD Active LYRICA 50 MG CAPS 1 tab po TID PREGABALIN 22099835735 No Longer Active Vishal Hui MD Active LORATADINE 10 MG TABS 1 tab po qd LORATADINE 14220527238 No Longer Active Vishal Hui MD Active VERAPAMIL HCL ER 180 MG CR-TABS 1 tab po bid VERAPAMIL HCL 52271067385 No Longer Active Vishal Hui MD Active MIRALAX POWD 1 capfull once daily POLYETHYLENE GLYCOL 3350 85299854432 No Longer Active Vishal Hui MD Active PREDNISONE 20 MG TABS 1 tab po qd PREDNISONE 33226222963 No Longer Active Renzo Thornton DO Active LEVOFLOXACIN 500 MG TABS 1 tab po qd LEVOFLOXACIN 33271814748 No Longer Active Renzo Thornton DO Active BUSPIRONE HCL 15 MG TABS 1 tab po TID BUSPIRONE HCL 95939424853 No Longer Active Renzo Thornton DO Active BENZTROPINE MESYLATE 1 MG TABS 1 tab po qd BENZTROPINE MESYLATE 92456632572 No Longer Active Renzo Thornton DO Active ATENOLOL 25 MG TABS 1 tab po qd ATENOLOL 83365018657 No Longer Active Renzo Thornton DO Active ESCITALOPRAM OXALATE 20 MG TABS 1 tab po qd ESCITALOPRAM OXALATE 86798069967 No Longer Active Renzo Thornton DO Active ADVAIR DISKUS 250-50 MCG/DOSE AEPB 1 puff BID FLUTICASONE-SALMETEROL 59252809652 No Longer Active Renzo Thornton DO Active PREDNISONE 20 MG TAB 2 tabs daily for 3 days, 1 tab daily for 3 days, 1/2 tab daily for 2 days PREDNISONE 32389518423 No Longer Active Vishal Hui MD Active CEFDINIR 300 MG CAPS by mouth twice a day CEFDINIR 16548361691 No Longer Active Vishal Hui MD Active LANSOPRAZOLE 30 MG CPDR 1 cap po qd LANSOPRAZOLE 25164889736 No Longer Active Vishal Hui MD Active BACLOFEN 20 MG TABS 1 tab po tid BACLOFEN 37905779518 No Longer Active Vishal Hui MD Active ADVAIR DISKUS 250-50 MCG/DOSE AEPB 1 puff BID ADVAIR DISKUS 250-50 MCG/DOSE AEPB FLUTICASONE-SALMETEROL Inactive ESCITALOPRAM OXALATE 20 MG TABS 1 tab po qd ESCITALOPRAM OXALATE 20 MG TABS 538522 ESCITALOPRAM OXALATE Inactive ATENOLOL 25 MG TABS 1 tab po qd ATENOLOL 25 MG TABS 277405 ATENOLOL Inactive BENZTROPINE MESYLATE 1 MG TABS 1 tab po qd BENZTROPINE MESYLATE 1 MG TABS 553094 BENZTROPINE MESYLATE Inactive BUSPIRONE HCL 15 MG TABS 1 tab po TID BUSPIRONE HCL 15 MG TABS 116783 BUSPIRONE HCL Inactive LEVOFLOXACIN 500 MG TABS 1 tab po qd LEVOFLOXACIN 500 MG TABS 774105 LEVOFLOXACIN Inactive PREDNISONE 20 MG TABS 1 tab po qd PREDNISONE 20 MG TABS 694635 PREDNISONE Inactive MIRALAX POWD 1 capfull once daily MIRALAX POWD 947455 POLYETHYLENE GLYCOL 3350 Inactive VERAPAMIL HCL ER 180 MG CR-TABS 1 tab po bid VERAPAMIL HCL ER 180 MG CR-TABS VERAPAMIL HCL Inactive LORATADINE 10 MG TABS 1 tab po qd LORATADINE 10 MG TABS 986966 LORATADINE Inactive LYRICA 50 MG CAPS 1 tab po TID LYRICA 50 MG CAPS PREGABALIN Inactive ZALEPLON 10 MG CAPS 1 cap po every other night ZALEPLON 10 MG CAPS 379337 ZALEPLON Inactive SAPHRIS 5 MG SUBL 1 tab po qd SAPHRIS 5 MG SUBL ASENAPINE MALEATE Inactive TRAZODONE HCL 50 MG TABS 1/2 tab po qd prn for anxiety TRAZODONE HCL 50 MG TABS 229306 TRAZODONE HCL Inactive LATUDA 20 MG TABS Take one by mouth daily LATUDA 20 MG TABS LURASIDONE HCL Inactive LISINOPRIL 20 MG TABS 1 tab po qd LISINOPRIL 20 MG TABS 229123 LISINOPRIL Inactive SAPHRIS 10 MG SUBL 1 [...] twice daily BACTRIM DS 800-160 MG TAB 075866 TRIMETHOPRIM-SULFAMETHOXAZOLE Inactive MULTIVITAMINS CAPS Take one by mouth daily MULTIVITAMINS CAPS MULTIPLE VITAMIN Inactive MELATONIN 3 MG CAPS 2 po q hs MELATONIN 3 MG CAPS 838432 MELATONIN Inactive KEFLEX 500 MG ORAL CAPS 1 cap QID by mouth KEFLEX 500 MG ORAL CAPS 004351 CEPHALEXIN Inactive CLINDAMYCIN HCL 150 MG CAPS 1 four times a day CLINDAMYCIN HCL 150 MG CAPS 692992 CLINDAMYCIN HCL Inactive DIFLUCAN 150 MG TAB 1 tablet by mouth daily DIFLUCAN 150 MG TAB 007630 FLUCONAZOLE Inactive PROZAC 20 MG CAP Take one by mouth daily PROZAC 20 MG CAP 474304 FLUOXETINE HCL Inactive IBUPROFEN 600 MG TAB 1 po TID PRN IBUPROFEN 600 MG TAB 113006 IBUPROFEN Inactive VYVANSE 40 MG CAPS 1 daily, VYVANSE 40 MG CAPS LISDEXAMFETAMINE DIMESYLATE Inactive TRAZODONE HCL 100 MG TAB take 1 at bedtime TRAZODONE HCL 100 MG TAB 370995 TRAZODONE HCL Inactive AMITRIPTYLINE HCL 100 MG TAB one at hs AMITRIPTYLINE HCL 100 MG TAB 762467 AMITRIPTYLINE HCL Inactive AMLODIPINE BESYLATE 5 MG TABS 1 tablet by mouth daily AMLODIPINE BESYLATE 5 MG TABS 124322 AMLODIPINE BESYLATE Inactive LATUDA 80 MG TABS Take one by mouth daily LATUDA 80 MG TABS LURASIDONE HCL Inactive SAPHRIS 5 MG SUBL 1 po bid SAPHRIS 5 MG SUBL ASENAPINE MALEATE Inactive CEFDINIR 300 MG CAPS by mouth twice a day CEFDINIR 300 MG CAPS 792437 CEFDINIR Inactive PREDNISONE 20 MG TAB 2 tabs daily for 3 days, 1 tab daily for 3 days, 1/2 tab daily for 2 days PREDNISONE 20 MG TAB 028667 PREDNISONE Inactive BACTRIM DS 800-160 MG TABS 1 po BID x 7 days BACTRIM DS 800-160 MG TABS 19820521 SULFAMETHOXAZOLE-TRIMETHOPRIM Inactive DIFLUCAN 150 MG TABS 1 pill every other day x 2 doses DIFLUCAN 150 MG TABS 441794 FLUCONAZOLE Inactive BACTRIM DS 800-160 MG TABS [...] % 11.6-14.8 platelet count 394 10^3/MM^3 10*3/mm3 789-973 9066/01/11 leukocyte count, blood 13.8 10^3/MM^3 10*3/mm3 4.6-10.2 [...] Metabolic Panel, HGBA1C, Lipid Panel - Chemistry potassium, serum 4.8 [...] 5.5 % 4.3-6.0 cholesterol, serum 159 mg/dL 373-900 3311/12/03 triglyceride, serum, fasting 118 mg/dL 30-200 HDL cholesterol, serum 45 mg/dL 32-96 LDL cholesterol, serum 90 mg/dL 0-130 sodium, serum 139 mmol/L 919-433 0440/12/03 carbon dioxide, venous blood 28.5 mmol/L 21.0-32.0 Lab Report: CBC W/DIFF, Comp. Metabolic Panel, HGBA1C, Lipid Panel - Hematology neutrophils as percent of blood leukocytes 62.7 % 42.2-75.2 leukocyte count, blood 12.5 10^3/MM^3 10*3/mm3 4.6-10.2 monocytes as percent of blood leukocytes 8.0 [...] ... - Chemistry sodium, serum 140 mmol/L 596-448 3954/05/28 potassium, serum 4.2 mmol/L 3.5-5.2 chloride, serum [...] Panel - Chemistry sodium, serum 141 mmol/L 053-089 4207 creatinine, serum 0.90 mg/dL 0.60-1.30 alanine aminotransferase (SGPT), serum 28 U/L 12-78 aspartate aminotransferase (SGOT), serum 13 U/L 15-37 calcium, serum 8.5 mg/dL 8.5-10.1 bilirubin, serum, total 0.20 mg/dL 0.00-1.00 potassium, serum 4.3 mmol/L 3.5-5.2 chloride, serum 106 mmol/L 98-107 carbon dioxide, venous blood 25.7 mmol/L 21.0-32.0 blood glucose 119 mg/dL 65-110 urea nitrogen, blood 22 mg/dL 7-18 sodium, serum 139 mmol/L 967-368 7652/12/22 carbon dioxide, venous blood 26.8 mmol/L 21.0-32.0 potassium, serum 4.2 mmol/L 3.5-5.2 chloride, serum 103 mmol/L 98-107 blood glucose 115 mg/dL 65-110 urea nitrogen, blood 20 mg/dL 7-18 creatinine, serum 0.90 mg/dL 0.55-1.30 alanine aminotransferase (SGPT), serum 38 U/L -78 aspartate aminotransferase (SGOT), serum 19 U/L 15-37 calcium, serum 8.6 mg/dL 8.5-10.1 bilirubin, serum, total 0.30 mg/dL 0.00-1.00 sodium, serum 139 mmol/L 196-493 6036/01/11 carbon dioxide, venous blood 26.6 mmol/L 21.0-32.0 [...] Rate - Chemistry sodium, serum 139 mmol/L 599-062 8957/12/11 carbon dioxide, venous blood 25.4 mmol/L 21.0-32.0 [...] Thyroxine (L) - Chemistry thyroxine, serum, free 0.98 ng/dL 0.76-1.46 TSH 1.48 m[iU]/mL 0.36-3.74 thyroxine, serum, free 1.02 ng/dL 0.76-1.46 TSH [...] Negative Negative Lab Report: UADIP W/MICRO, AUTO, [facility] [place] - Chemistry RBC, urine, dipstick Negative Negative human chorionic gonadotropin, urine, qualitative (urine test) Negative Negative protein, total urine random Negative mg/dL Negative Lab Report: UADIP W/MICRO, AUTO, [facility] - Urinalysis pH, urine, semiquantitative 7.0 5.0-8.5 specific gravity, urine 1.025 1.000-1.030 appearance, urine Clear Clear urine color Yellow Colorless;Lightyellow;Straw;Yellow urobilinogen, urine, semiquantitative (dipstick) 0.2 Normal leukocyte esterase, urine, by dipstick Negative Negative nitrite, urine, semiquantitative Negative Negative glucose, urine, semiquantitative Negative Negative ketones, urine, by test strip Negative Negative bilirubin, urine Negative Negative Lab Report: Varicella-Zoater Inga IgG,IgM/18637, HEP Be Antibody/556, RUB ... - Serology rubella antibody, serum, IgG 2.88 Encounters Code Encounter Date Provider Facility CPT-33324 Level 4 Est. Patient 09:00:51 MANAGER FREELANCE Vishal Hui MD [facility] CPT-06965 Level 3 Est. Patient 11:37:33 MANAGER FREELANCE Vishal Hui MD [facility] CPT-38606 Level 3 Est. Patient 08:41:09 MANAGER FREELANCE Vishal Hui MD [facility] CPT-29736 Level 4 Est. Patient 10:19:35 MANAGER FREELANCE Vishal Hui [facility]39 Level 3 Est. Patient 13:35:45 CDT Vishal Hui MD [facility] CPT-92396 Level 4 Est. Patient 10:08:37 CDT Vishal Hui MD [facility] [place]-62319 Level 3 Est. Patient 11:22:10 CDT Vishal Hui MD [facility] [place]-65353 Level 3 Est. Patient 11:03:32 CDT Sahara Rodriguez MD [facility]-19373 Level 3 Est. Patient 09:41:35 CDT Vishal Hui MD [facility]-87076 Level 3 Est. Patient 12:00:41 CDT Neeraj Collins MD [facility] [place]-56101 Level 3 Est. Patient 09:16:24 CDT Vishal Hui MD [facility] [place]-56840 Level 4 Est. Patient 13:59:09 CDT Neeraj Collins MD [facility] [place]-81404 Level 3 Est. Patient 15:19:43 CDT Renzo Thornton DO [facility] [place]-40194 Level 3 Est. Patient 18:10:26 CDT Sahara Rodriguez MD [facility]-44946 Level 3 Est. Patient 14:49:50 CDT Vishal Hui MD [facility] [place]-19510 Level 4 Est. Patient 18:41:46 CDT Neeraj Collins MD [facility] [place]-24351 Level 4 Est. Patient 09:18:38 MANAGER FREELANCE Vishal Hui MD [facility]-31335 Level 3 Est. Patient 14:43:55 MANAGER FREELANCE Vishal Hui MD [facility] [place]-81438 Level 3 Est. Patient 15:26:33 MANAGER FREELANCE Sahara Rodriguez MD PhD [facility] CPT-57401 Level 3 Est. Patient 10:32:14 MANAGER FREELANCE Vishal Hui MD [facility] CPT-40325 Level 3 Est. Patient 15:12:52 MANAGER FREELANCE Vishal Hui MD [facility] CPT-07042 Level 4 Est. Patient 09:19:27 CDT Vishal Hui MD [facility] CPT-70270 Level 3 Est. Patient 15:53:00 CDT Ren[facility] CPT-16685 Level 3 Est. Patient 15:50:30 CDT Renzo Thornton [facility] CPT-09672 Level 3 Est. Patient 16:55:24 CDT Vishal Hui MD [facility] Procedures Code Procedure Name Date Entry Date Standard Description CPT-G0438 Initial Annual Wellness Exam 19:01:01 MANAGER FREELANCE CPT-J3420 Vitamin B12 1000mcg (Cyanocobalamin) 16:57:46 CDT 08/14 CPT-80540 Recombivax HB Injection Suspension 5 MCG/0.5ML 08:37:50 MANAGER FREELANCE CPT-61374 Immunization Single Admin 08:37:50 MANAGER FREELANCE CPT-J3420 Vitamin B12 1000mcg (Cyanocobalamin) 08:32:16 MANAGER FREELANCE 03/11 CPT-30904 Abx/Therapy Injection 08:32:16 MANAGER FREELANCE CPT-94749 Chest 2V Frontal and Lat 11:46:38 MANAGER FREELANCE CPT-58232 Venipuncture Draw Fee 09:12:45 MANAGER FREELANCE CPT-J3420 Vitamin B12 1000mcg (Cyanocobalamin) 08:50:15 MANAGER FREELANCE 02/08 CPT-29384 Abx/Therapy Injection 08:50:15 MANAGER FREELANCE CPT-Cryo Cryotherapy 10:19:35 MANAGER FREELANCE CPT-000 Give Appropriate Flu Vaccine 09:22:16 CDT CPT-J3420 Vitamin B12 1000mcg (Cyanocobalamin) 19:08:57 CDT 01/11 CPT-51239 Abx/Therapy Injection 19:08:57 CDT CPT-J3420 Vitamin B12 1000mcg (Cyanocobalamin) 08:19:08 CDT 12/11 CPT-45926 Abx/Therapy Injection 08:19:08 CDT CPT-J3420 Vitamin B12 1000mcg (Cyanocobalamin) 14:48:00 CDT 11/09 CPT-70195 Abx/Therapy Injection 14:47:59 CDT CPT-J3420 Vitamin B12 1000mcg (Cyanocobalamin) 08:34:04 CDT 10/09 CPT-57313 Abx/Therapy Injection 08:34:04 CDT CPT-J3420 Vitamin B12 1000mcg (Cyanocobalamin) 09:18:52 CDT 09/11 CPT-59294 Abx/Therapy Injection 09:18:52 CDT CPT-J3420 Vitamin B12 1000mcg (Cyanocobalamin) 08:35:44 CDT 09/04 CPT-51784 Abx/Therapy Injection 08:35:44 CDT CPT-41092 Immunization Single Admin 11:07:16 CDT CPT-56357 Hepatitis B adult IM 11:07:16 CDT CPT-J3420 Vitamin B12 1000mcg (Cyanocobalamin) 11:00:49 CDT 08/28 CPT-J1040 Depo Medrol 80 mg (Methyl Prednisolone Acetate) 11:00: 49 CDT CPT-49567 Abx/Therapy Injection 11:00:49 CDT CPT-J1040 Depo Medrol 80 mg (Methyl Prednisolone Acetate) 09:16: 23 CDT CPT-J3420 Vitamin B12 1000mcg (Cyanocobalamin) 08:27:05 CDT 08/20 CPT-52814 Abx/Therapy Injection 08:27:05 CDT CPT-25346 Recombivax HB Injection Suspension 5 MCG/0.5ML 10:00:41 CDT CPT-92005 Administration single or combination vaccine inc oral 10 :00:41 CDT CPT-47255 Sono transvag pelvis non OB uterus ovaries cervix 16:36: 57 CDT CPT-39308 LS spine comp w obliq 09:50:55 MANAGER FREELANCE CPT-63418 Abd compl w upright 09:50:55 MANAGER FREELANCE CPT-J1100 Decadron 4mg (Dexamethasone) 15:51:24 MANAGER FREELANCE CPT-J1030 Depo Medrol 40 mg (Methyl Prednisolone Acetate) 15:51: 24 MANAGER FREELANCE CPT-91835 Abx/Therapy Injection 15:51:24 MANAGER FREELANCE CPT-J1100 Decadron 4mg (Dexamethasone) 15:26:33 MANAGER FREELANCE CPT-J1030 Depo Medrol 40 mg (Methyl Prednisolone Acetate) 15:26: 33 MANAGER FREELANCE CPT-03608 Sono retroperitoneal complete kidneys and bladder 17:15: 30 CDT CPT-40320 Abd compl w upright 16:09:25 CDT CPT-J1100 Decadron 8mg (Dexamethasone) 17:07:57 CDT CPT-43984 Abx/Therapy Injection 17:07:57 CDT CPT-J1100 Decadron 8mg (Dexamethasone) 16:55:24 CDT CPT-64821 Chest 2V Frontal and Lat 16:32:44 CDT
--- OUTSIDE RECORDS SUMMARY | 2016-11-04 17:40 | XMS REPORT | Clinical Summary ---
Author Author Admin, [employer] Organization [facility] Address Unknown Phone Unavailable Allergies, [...] Unspecified chest pain Localized adiposity 278.1 Resolved Vsihal Hui MD Localized adiposity Shortness of breath 786.05 Resolved Vishal Hui MD Shortness of breath Nocturnal hypoxia 799.02 Active Fabiola Johnson ANIMAL CARE TECHNICIAN Hypoxemia Neck pain 723.1 Resolved Vishal Hui [...] in 2 hours if needed SUMATRIPTAN SUCCINATE 20975106989 Active Vishal Hui MD Active OXYCODONE HCL ER 10 MG ORAL T12A 1/2 tab by mouth every 4 hours prn OXYCODONE HCL 50275463710 Active Neeraj Collins MD Active TESSALON PERLES 100 MG CAP 1 to 2 tablets by mouth 3 times daily as needed for cough BENZONATATE 72976054308 Active Vishal Hui MD Active METHYLPREDNISOLONE 4 MG ORAL TABS po daily METHYLPREDNISOLONE 00443489316 Active Vishal Hui MD Active LEVOFLOXACIN 500 MG ORAL TABS po daily LEVOFLOXACIN 27387906953 Active Vishal Hui MD Active CHANTIX STARTING MONTH EARNEST 0.5 MG X 11 & 1 MG X 42 TABS take as directed 2015 VARENICLINE TARTRATE 16066894994 Active Ahmet Carbajal MD Active CHANTIX 1 MG TABS 1 twice a day to help quit smoking VARENICLINE TARTRATE 07803363899 Active Ahmet Carbajal MD Active HYDROCODONE-ACETAMINOPHEN 5-325 MG TABS 1 to 2 four times a day as needed for pain use until can be seen by specialist HYDROCODONE- ACETAMINOPHEN 76636526152 No Longer Active Vishal Hui MD Active PROAIR HFA 108 (90 BASE) MCG/ACT AERS 2 puffs four times a day as needed 2015 ALBUTEROL SULFATE 83270667877 No Longer Active Vishal Hui MD Active PREDNISONE 20 MG TABS 2 daily for 5 days then 1 daily for 5 days PREDNISONE 19020714527 No Longer Active Vishal Hui MD Active ZITHROMAX Z-EARNEST 250 MG TABS 2 today and then 1 daily for 4 days AZITHROMYCIN 42573329214 No Longer Active Vishal Hui MD Active DICLOFENAC SODIUM 50 MG TBEC 1 tablet by mouth four times daily PRN Pain 2015 DICLOFENAC SODIUM 48128936837 Active Vishal Hui MD Active DICLOFENAC POTASSIUM TABS Take 1 tablet twice a day (pt. is not sure of the dose.) DICLOFENAC POTASSIUM TABS 90669347762 No Longer Active Vishal Hui MD Active VERAPAMIL HCL ER 120 MG ORAL CR-TABS Take 1 tablet by mouth twice a day. VERAPAMIL HCL 85279189279 Active Vishal Hui MD Active FLAGYL 500 MG TAB 1 tablet by mouth bid METRONIDAZOLE 92740288104 No Longer Active Vishal Hui MD Active ABILIFY MAINTENA 400 MG IM SUSR 400mg injection every 28 days ARIPIPRAZOLE 15176591090 Active Silvia Ervinum LATIN PROFESSOR Active FLUTICASONE PROPIONATE 50 MCG/ACT SUSP 2 sprays each nostril daily before bed. FLUTICASONE PROPIONATE 00888072905 Active Fabiola Johnson APRN Active ADZENYS XR-ODT 6.3 MG ORAL TBED 1 tab po daily for ADHD AMPHETAMINE 47764429848 Active Fabiola Johnson APRN Active BENADRYL 25 MG CAP 4 po at bedtime for insomnia DIPHENHYDRAMINE HCL 43097578281 Active Fabiola Johnson APRN Active KLONOPIN 1 MG ORAL TABS 1 tab po TID CLONAZEPAM 44516528455 Active Fabiola Johnson APRN Active VALIUM 5 MG TAB Take 1-2 tablets daily DIAZEPAM 25949427665 No Longer Active Fabiola Johnson APRN Active METOPROLOL TARTRATE 25 MG ORAL TABS 1/2 tablet twice daily for heart rate and blood pressure METOPROLOL TARTRATE 18728264152 No Longer Active Fabiola Johnson APRN Active MIRALAX ORAL POWD 17GMS DAILY IN WATER POLYETHYLENE GLYCOL 3350 00724006829 Active Vishal Hui MD Active VIIBRYD 10 MG ORAL TABS Take 1 tablet once a day VILAZODONE HCL 41857526762 Active Ahmet Carbajal MD Active MIRALAX PACK 1 po qd PRN Constipation POLYETHYLENE GLYCOL 3350 65469960032 No Longer Active Ahmet Carbajal MD Active MINIPRESS 2 MG CAPS 4 cap po at night PRAZOSIN HCL 46368502071 No Longer Active Ahmet Carbajal MD Active PIROXICAM 20 MG CAPS 1 cap po qd PRN Pain PIROXICAM 86457058820 No Longer Active Ahmet Carbajal MD Active TRAMADOL HCL 50 MG TABS 1-2 po TID PRN Pain TRAMADOL HCL 91977028242 No Longer Active Ahmet Carbajal MD Active METOPROLOL TARTRATE 50 MG TAB 1 po bid METOPROLOL TARTRATE 20763085963 No Longer Active Ahmet Carbajal MD Active ABILIFY 15 MG ORAL TABS 1 tab daily ARIPIPRAZOLE 34281673575 No Longer Active Ahmet Carbajal MD Active PROZAC 20 MG ORAL CAPS 1 tab daily FLUOXETINE HCL 78016125995 No Longer Active Ahmet Carbajal MD Active AMBIEN 5 MG ORAL TABS 1 tab at bedtime ZOLPIDEM TARTRATE 15116933915 No Longer Active Ahmet Carbajal MD Active PREDNISONE 20 MG TAB 2 tabs daily for 4 days, 1 tab daily for 4 days, 1/2 tab daily for 4 days PREDNISONE 94427828496 No Longer Active Ahmet Carbajal MD Active KEFLEX 500 MG CAP 1 po TID x 10 days CEPHALEXIN 15902299440 No Longer Active Vishal Hui MD Active TOPAMAX 50 MG ORAL TABS 1 tab twice daily TOPIRAMATE 63530016182 Active Vishal Hui MD Active SAPHRIS 5 MG SUBL 1 po bid ASENAPINE MALEATE 50715313367 No Longer Active Luigi Martínez APRN Active LATUDA 80 MG TABS Take one by mouth daily LURASIDONE HCL 33489290725 No Longer Active Jillina Mauricio NORIEGA Active AMLODIPINE BESYLATE 5 MG TABS 1 tablet by mouth daily AMLODIPINE BESYLATE 10503137452 No Longer Active Luigi Martínez APRN Active AMITRIPTYLINE HCL 100 MG TAB one at hs AMITRIPTYLINE HCL 07912385627 No Longer Active Vishal Hui MD Active TRAZODONE HCL 100 MG TAB take 1 at bedtime TRAZODONE HCL 72939819639 No Longer Active Vishal Hui MD Active VYVANSE 40 MG CAPS 1 daily, LISDEXAMFETAMINE DIMESYLATE 82415523870 No Longer Active Vishal Hui MD Active IBUPROFEN 600 MG TAB 1 po TID PRN IBUPROFEN 63537680110 No Longer Active Vishal Hui MD Active PROZAC 20 MG CAP Take one by mouth daily FLUOXETINE HCL 34201797326 No Longer Active Vishal Hui MD Active ZOFRAN 4 MG TABS 1 po q6hr PRN Nausea ONDANSETRON HCL Active Vishal Hui MD Active BACTRIM DS 800-160 MG TABS 1 pill by mouth twice daily SULFAMETHOXAZOLE-TRIMETHOPRIM 40234914029 No Longer Active Sahara Rodriguez MD PhD Active DIFLUCAN 150 MG TAB 1 tablet by mouth daily FLUCONAZOLE 57696849812 No Longer Active Vishal Hui MD Active TIZANIDINE HCL 4 MG TABS 1 po q6hr PRN Muscle Spasm/Back Pain TIZANIDINE HCL 61948322619 Active Vishal Hui MD Active CLINDAMYCIN HCL 150 MG CAPS 1 four times a day CLINDAMYCIN HCL 74843993959 No Longer Active Neeraj Collins MD Active KEFLEX 500 MG ORAL CAPS 1 cap QID by mouth CEPHALEXIN 78692262036 No Longer Active Neeraj Collins MD Active DIFLUCAN 150 MG TABS 1 pill every other day x 2 doses FLUCONAZOLE 38225592243 No Longer Active Sahara Rodriguez MD PhD Active MELATONIN 3 MG CAPS 2 po q hs MELATONIN 18537654836 No Longer Active Sahara Rodriguez MD PhD Active MULTIVITAMINS CAPS Take one by mouth daily MULTIPLE VITAMIN 74830936759 No Longer Active Sahara Rodriguez MD PhD Active BACTRIM DS 800-160 MG TAB 1 tab by mouth twice daily TRIMETHOPRIM-SULFAMETHOXAZOLE 21888740434 No Longer Active Sahara Rodriguez MD PhD Active [facility] PROBIOTIC ORAL CHEW 2 daily po PROBIOTIC PRODUCT 51382260540 No Longer Active Sahara Rodriguez MD PhD Active BACTRIM DS 800-160 MG TABS 1 po BID x 7 days SULFAMETHOXAZOLE-TRIMETHOPRIM 32822574582 No Longer Active Vishal Hui MD Active CHANTIX STARTING MONTH EARNEST 0.5 MG X 11 & 1 MG X 42 TABS 0.5mg daily for 3 days , then 0.5mg BID for 4 days, then 1mg BID VARENICLINE TARTRATE 44222372688 No Longer Active TAMARA Gray Active VERAPAMIL HCL CR 120 MG TAB CR 1 po bid VERAPAMIL HCL 44418815579 No Longer Active Vishal Hui MD Active METOPROLOL SUCCINATE 50 MG TB24 1 tablet by mouth daily METOPROLOL SUCCINATE 21046084160 No Longer Active Vishal Hui MD Active SAPHRIS 10 MG SUBL 1 tab po bid ASENAPINE MALEATE 27799036240 No Longer Active Vishal Hui MD Active LISINOPRIL 20 MG TABS 1 tab po qd LISINOPRIL 86156403490 No Longer Active Vishal Hui MD Active LATUDA 20 MG TABS Take one by mouth daily LURASIDONE HCL 22663409846 No Longer Active Vishal Hui MD Active TRAZODONE HCL 50 MG TABS 1/2 tab po qd prn for anxiety TRAZODONE HCL 69277562213 No Longer Active Vishal Hui MD Active OMEPRAZOLE 20 MG TBEC 1 po q a.m. 30min prior to first food intake OMEPRAZOLE 17251981977 Active Vishal Hui MD Active RANITIDINE HCL 150 MG CAPS 1 twice a day RANITIDINE HCL 51301815183 Active Luigi Martínez APRN Active LINZESS 290 MCG CAPS Take one by mouth daily LINACLOTIDE 97700445267 No Longer Active Vishal Hui MD Active SAPHRIS 5 MG SUBL 1 tab po qd ASENAPINE MALEATE 49941014059 No Longer Active Vishal Hui MD Active ZALEPLON 10 MG CAPS 1 cap po every other night ZALEPLON 11550836587 No Longer Active Vishal Hui MD Active LYRICA 50 MG CAPS 1 tab po TID PREGABALIN 48400163324 No Longer Active Vishal Hui MD Active LORATADINE 10 MG TABS 1 tab po qd LORATADINE 18168718776 No Longer Active Vishal Hui MD Active VERAPAMIL HCL ER 180 MG CR-TABS 1 tab po bid VERAPAMIL HCL 12975102176 No Longer Active Vishal Hui MD Active MIRALAX POWD 1 capfull once daily POLYETHYLENE GLYCOL 3350 06640429863 No Longer Active Vishal Hui MD Active PREDNISONE 20 MG TABS 1 tab po qd PREDNISONE 36032859363 No Longer Active Renzo Thornton DO Active LEVOFLOXACIN 500 MG TABS 1 tab po qd LEVOFLOXACIN 43603820799 No Longer Active Renzo Thornton DO Active BUSPIRONE HCL 15 MG TABS 1 tab po TID BUSPIRONE HCL 95374608974 No Longer Active Renzo Thornton DO Active BENZTROPINE MESYLATE 1 MG TABS 1 tab po qd BENZTROPINE MESYLATE 96532877338 No Longer Active Renzo Thornton DO Active ATENOLOL 25 MG TABS 1 tab po qd ATENOLOL 64902540585 No Longer Active Renzo Thornton DO Active ESCITALOPRAM OXALATE 20 MG TABS 1 tab po qd ESCITALOPRAM OXALATE 64544903515 No Longer Active Renzo Thornton DO Active ADVAIR DISKUS 250-50 MCG/DOSE AEPB 1 puff BID FLUTICASONE-SALMETEROL 99554890515 No Longer Active Renzo Thornton DO Active PREDNISONE 20 MG TAB 2 tabs daily for 3 days, 1 tab daily for 3 days, 1/2 tab daily for 2 days PREDNISONE 26037541686 No Longer Active Vishal Hui MD Active CEFDINIR 300 MG CAPS by mouth twice a day CEFDINIR 71792336900 No Longer Active Vishal Hui MD Active LANSOPRAZOLE 30 MG CPDR 1 cap po qd LANSOPRAZOLE 61169075339 No Longer Active Vishal Hui MD Active BACLOFEN 20 MG TABS 1 tab po tid BACLOFEN 67720281903 No Longer Active Vishal Hui MD Active ADVAIR DISKUS 250-50 MCG/DOSE AEPB 1 puff BID ADVAIR DISKUS 250-50 MCG/DOSE AEPB FLUTICASONE-SALMETEROL Inactive ESCITALOPRAM OXALATE 20 MG TABS 1 tab po qd ESCITALOPRAM OXALATE 20 MG TABS 626273 ESCITALOPRAM OXALATE Inactive ATENOLOL 25 MG TABS 1 tab po qd ATENOLOL 25 MG TABS 080968 ATENOLOL Inactive BENZTROPINE MESYLATE 1 MG TABS 1 tab po qd BENZTROPINE MESYLATE 1 MG TABS 576745 BENZTROPINE MESYLATE Inactive BUSPIRONE HCL 15 MG TABS 1 tab po TID BUSPIRONE HCL 15 MG TABS 903389 BUSPIRONE HCL Inactive LEVOFLOXACIN 500 MG TABS 1 tab po qd LEVOFLOXACIN 500 MG TABS 073654 LEVOFLOXACIN Inactive PREDNISONE 20 MG TABS 1 tab po qd PREDNISONE 20 MG TABS 076393 PREDNISONE Inactive MIRALAX POWD 1 capfull once daily MIRALAX POWD 628338 POLYETHYLENE GLYCOL 3350 Inactive VERAPAMIL HCL ER 180 MG CR-TABS 1 tab po bid VERAPAMIL HCL ER 180 MG CR-TABS VERAPAMIL HCL Inactive LORATADINE 10 MG TABS 1 tab po qd LORATADINE 10 MG TABS 471875 LORATADINE Inactive LYRICA 50 MG CAPS 1 tab po TID LYRICA 50 MG CAPS PREGABALIN Inactive ZALEPLON 10 MG CAPS 1 cap po every other night ZALEPLON 10 MG CAPS 570405 ZALEPLON Inactive SAPHRIS 5 MG SUBL 1 tab po qd SAPHRIS 5 MG SUBL ASENAPINE MALEATE Inactive TRAZODONE HCL 50 MG TABS 1/2 tab po qd prn for anxiety TRAZODONE HCL 50 MG TABS 019606 TRAZODONE HCL Inactive LATUDA 20 MG TABS Take one by mouth daily LATUDA 20 MG TABS LURASIDONE HCL Inactive LISINOPRIL 20 MG TABS 1 tab po qd LISINOPRIL 20 MG TABS 842619 LISINOPRIL Inactive SAPHRIS 10 MG SUBL 1 [...] twice daily BACTRIM DS 800-160 MG TAB 977147 TRIMETHOPRIM-SULFAMETHOXAZOLE Inactive MULTIVITAMINS CAPS Take one by mouth daily MULTIVITAMINS CAPS MULTIPLE VITAMIN Inactive MELATONIN 3 MG CAPS 2 po q hs MELATONIN 3 MG CAPS 349851 MELATONIN Inactive KEFLEX 500 MG ORAL CAPS 1 cap QID by mouth KEFLEX 500 MG ORAL CAPS 651662 CEPHALEXIN Inactive CLINDAMYCIN HCL 150 MG CAPS 1 four times a day CLINDAMYCIN HCL 150 MG CAPS 19740326 CLINDAMYCIN HCL Inactive DIFLUCAN 150 MG TAB 1 tablet by mouth daily DIFLUCAN 150 MG TAB 694281 FLUCONAZOLE Inactive PROZAC 20 MG CAP Take one by mouth daily PROZAC 20 MG CAP 482530 FLUOXETINE HCL Inactive IBUPROFEN 600 MG TAB 1 po TID PRN IBUPROFEN 600 MG TAB 806786 IBUPROFEN Inactive VYVANSE 40 MG CAPS 1 daily, VYVANSE 40 MG CAPS LISDEXAMFETAMINE DIMESYLATE Inactive TRAZODONE HCL 100 MG TAB take 1 at bedtime TRAZODONE HCL 100 MG TAB 355628 TRAZODONE HCL Inactive AMITRIPTYLINE HCL 100 MG TAB one at hs AMITRIPTYLINE HCL 100 MG TAB 868756 AMITRIPTYLINE HCL Inactive AMLODIPINE BESYLATE 5 MG TABS 1 tablet by mouth daily AMLODIPINE BESYLATE 5 MG TABS 805105 AMLODIPINE BESYLATE Inactive LATUDA 80 MG TABS Take one by mouth daily LATUDA 80 MG TABS LURASIDONE HCL Inactive SAPHRIS 5 MG SUBL 1 po bid SAPHRIS 5 MG SUBL ASENAPINE MALEATE Inactive PREDNISONE 20 MG TAB 2 tabs daily for 4 days, 1 tab daily for 4 days, 1/2 tab daily for 4 days PREDNISONE 20 MG TAB 375495 PREDNISONE Inactive AMBIEN 5 MG ORAL TABS 1 tab at bedtime AMBIEN 5 MG ORAL TABS 325441 ZOLPIDEM TARTRATE Inactive PROZAC 20 MG ORAL CAPS 1 tab daily PROZAC 20 MG ORAL CAPS 058165 FLUOXETINE HCL Inactive ABILIFY 15 MG ORAL TABS 1 tab daily ABILIFY 15 MG ORAL TABS 103945 ARIPIPRAZOLE Inactive METOPROLOL TARTRATE 50 MG TAB 1 po bid METOPROLOL TARTRATE 50 MG TAB 989463 METOPROLOL TARTRATE Inactive TRAMADOL HCL 50 MG TABS 1-2 po TID PRN Pain TRAMADOL HCL 50 MG TABS 589851 TRAMADOL HCL Inactive PIROXICAM 20 MG CAPS 1 cap po qd PRN Pain PIROXICAM 20 MG CAPS 163955 PIROXICAM Inactive MINIPRESS 2 MG CAPS 4 cap po at night MINIPRESS 2 MG CAPS 135287 PRAZOSIN HCL Inactive MIRALAX PACK 1 po qd PRN Constipation MIRALAX PACK 872675 POLYETHYLENE GLYCOL 3350 Inactive METOPROLOL TARTRATE 25 MG ORAL TABS 1/2 tablet twice daily for heart rate and blood pressure METOPROLOL TARTRATE 25 MG ORAL TABS 206591 METOPROLOL TARTRATE Inactive VALIUM 5 MG TAB Take 1-2 tablets daily VALIUM 5 MG TAB 557987 DIAZEPAM Inactive FLAGYL 500 MG TAB 1 tablet by mouth bid FLAGYL 500 MG TAB 217637 METRONIDAZOLE Inactive DICLOFENAC POTASSIUM TABS Take 1 tablet twice a day (pt. is not sure of the dose.) DICLOFENAC POTASSIUM TABS DICLOFENAC POTASSIUM TABS Inactive ZITHROMAX Z-EARNEST 250 MG TABS 2 today and then 1 daily for 4 days ZITHROMAX Z-EARNEST 250 MG TABS 4606048 AZITHROMYCIN Inactive PREDNISONE 20 MG TABS 2 daily for 5 days then 1 daily for 5 days PREDNISONE 20 MG TABS 439076 PREDNISONE Inactive PROAIR HFA 108 (90 BASE) MCG/ACT AERS 2 puffs four times a day as needed 2015 PROAIR HFA 108 (90 BASE) MCG/ACT AERS ALBUTEROL SULFATE Inactive HYDROCODONE-ACETAMINOPHEN 5-325 MG TABS 1 to 2 four times a day as needed for pain use until can be seen by specialist HYDROCODONE- ACETAMINOPHEN 5-325 MG TABS 961177 HYDROCODONE-ACETAMINOPHEN Inactive CEFDINIR 300 MG CAPS by mouth twice a day CEFDINIR 300 MG CAPS 851114 CEFDINIR Inactive PREDNISONE 20 MG TAB 2 tabs daily for 3 days, 1 tab daily for 3 days, 1/2 tab daily for 2 days PREDNISONE 20 MG TAB 861744 PREDNISONE Inactive BACTRIM DS 800-160 MG TABS 1 po BID x 7 days BACTRIM DS 800-160 MG TABS 768469 SULFAMETHOXAZOLE-TRIMETHOPRIM Inactive DIFLUCAN 150 MG TABS 1 pill every other day x 2 doses DIFLUCAN 150 MG TABS 722832 FLUCONAZOLE Inactive BACTRIM DS 800-160 MG TABS 1 pill by mouth twice daily BACTRIM DS 800-160 MG TABS 287819 SULFAMETHOXAZOLE-TRIMETHOPRIM Inactive KEFLEX 500 MG CAP 1 po TID x 10 days KEFLEX 500 MG CAP 905121 CEPHALEXIN Inactive Advance Directives Directive Description Start [...] % 11.6-14.8 platelet count 394 10^3/MM^3 10*3/mm3 400-676 6459/01/11 leukocyte count, blood 13.8 10^3/MM^3 10*3/mm3 4.6-10.2 [...] Panel - Chemistry sodium, serum 139 mmol/L 994-488 3812/12/03 carbon dioxide, venous blood 28.5 mmol/L 21.0-32.0 [...] 5.5 % 4.3-6.0 cholesterol, serum 159 mg/dL 352-656 5321/12/03 triglyceride, serum, fasting 118 mg/dL 30-200 HDL [...] Panel - Chemistry sodium, serum 139 mmol/L 562-766 1071/12/22 carbon dioxide, venous blood 26.8 mmol/L 21.0-32.0 potassium, serum 4.2 mmol/L 3.5-5.2 chloride, serum 103 mmol/L 98-107 blood glucose 115 mg/dL 65-110 urea nitrogen, blood 20 mg/dL 7-18 creatinine, serum 0.90 mg/dL 0.55-1.30 alanine aminotransferase (SGPT), serum 38 U/L aspartate aminotransferase (SGOT), serum 19 U/L 15-37 calcium, serum 8.6 mg/dL 8.5-10.1 bilirubin, serum, total 0.30 mg/dL 0.00-1.00 sodium, serum 139 mmol/L 507-018 3419/01/11 carbon dioxide, venous blood 26.6 mmol/L 21.0-32.0 potassium, serum 4.1 mmol/L 3.5-5.2 chloride, serum 100 mmol/L 98-107 blood glucose 86 mg/dL 65-110 urea nitrogen, blood 16 mg/dL 7-18 creatinine, serum 1.00 mg/dL 0.55-1.30 alanine aminotransferase (SGPT), serum 48 U/L aspartate aminotransferase (SGOT), serum 17 U/L 15-37 calcium, serum 9.1 mg/dL 8.5-10.1 bilirubin, serum, total 0.40 mg/dL 0.00-1.00 sodium, serum 142 mmol/L 902-310 0916/06/08 carbon dioxide, venous blood 27.6 mmol/L 21.0-32.0 potassium, serum 4.0 mmol/L 3.5-5.2 chloride, serum 105 mmol/L 98-107 blood glucose 95 mg/dL 65-110 urea nitrogen, blood 8 mg/dL 7-18 creatinine, serum 0.75 mg/dL 0.55-1.30 alanine aminotransferase (SGPT), serum 49 U/L 12-78 aspartate aminotransferase (SGOT), serum 28 U/L 15-37 calcium, serum 9.4 mg/dL 8.5-10.1 bilirubin, serum, total 0.30 mg/dL 0.00-1.00 sodium, serum 140 mmol/L 140-925 3266/08/08 carbon dioxide, venous blood 33.7 mmol/L 21.0-32.0 [...] Rate - Chemistry sodium, serum 139 mmol/L 980-632 0773/12/11 carbon dioxide, venous blood 25.4 mmol/L 21.0-32.0 [...] mg/dL Encounters Code Encounter Date Provider Facility CPT-56633 Level 3 Est. Patient 18:18:53 CDT Neeraj Collins MD [facility] CPT-83086 Level 3 Est. Patient 15:50:44 CDT Vishal Hui MD [facility] CPT-14874 Level 3 Est. Patient 11:36:17 CDT Ahmet Carbajal MD [facility] CPT-75933 Level 3 Est. Patient 13:29:16 CDT Vishal Hui MD [facility] CPT-88575 Level 3 Est. Patient 14:27:52 CDT Neeraj Collins MD [facility] CPT-90884 Level 3 Est. Patient 08:56:03 CDT Luigi Martínez [facility] CPT-74782 Level 4 Est. Patient 12:11:48 CDT Fabiola Johnson [facility] CPT-94035 Level 3 New Patient 16:53:37 CDT Albert Caldera MD [facility] CPT-19348 Level 3 Est. Patient 11:25:49 CDT Renzo Thornton DO [facility] CPT-86757 Level 3 Est. Patient 15:22:01 CDT Ahmet Carbajal MD [facility] CPT-44127 Level 4 Est. Patient 09:00:51 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 Vishal Hui MD [facility] CPT-79943 Level 3 Est. Patient 11:37:33 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 Vishal Hui MD [facility] CPT-27992 Level 3 Est. Patient 08:41:09 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 Vishal Hui MD [facility] CPT-94514 Level 4 Est. Patient 10:19:35 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 Vishal Hui MD [facility] CPT-44595 Level 3 Est. Patient 13:35:45 CDT Vishal Hui MD [facility] CPT-99271 Level 4 Est. Patient 10:08:37 CDT Vishal Hui MD [facility] CPT-03772 Level 3 Est. Patient 11:22:10 CDT Vishal Hui MD [facility] CPT-70663 Level 3 Est. Patient 11:03:32 CDT Sahara Rodriguez MD [facility]-45948 Level 3 Est. Patient 09:41:35 CDT Vishal Hui MD [facility]-65380 Level 3 Est. Patient 12:00:41 CDT Neeraj Collins MD [facility]-91988 Level 3 Est. Patient 09:16:24 CDT Vishla Hui MD [facility]-28381 Level 4 Est. Patient 13:59:09 CDT Neeraj Collins MD [facility]-30479 Level 3 Est. Patient 15:19:43 CDT Renzo Thornton DO [facility] CPT-78991 Level 3 Est. Patient 18:10:26 CDT Sahara Rodriguez MD [facility] CPT-04642 Level 3 Est. Patient 14:49:50 CDT Vishal Hui MD [facility]-46763 Level 4 Est. Patient 18:41:46 CDT Neeraj Collins MD [facility]-43987 Level 4 Est. Patient 09:18:38 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 Vishal Hui MD [facility]-61616 Level 3 Est. Patient 14:43:55 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 Vishal Hui MD [facility] CPT-47788 Level 3 Est. Patient 15:26:33 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 Sahara Rodriguez MD [facility]-23486 Level 3 Est. Patient 10:32:14 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 Vishal Hui MD [facility]-32893 Level 3 Est. Patient 15:12:52 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 Vishal Hui MD [facility] CPT-10912 Level 4 Est. Patient 09:19:27 CDT Vishal Hui MD [facility] CPT-41053 Level 3 Est. Patient 15:53:00 CDT Renzo Thornton [facility] CPT-66191 Level 3 Est. Patient 15:50:30 CDT Renzo Thornton [facility] CPT-41108 Level 3 Est. Patient 16:55:24 CDT Vishal Hui MD [facility] Procedures Code Procedure Name Date Entry Date Standard Description CPT-86478 Abx/Therapy Injection 08:47:09 CDT CPT-27478 Abx/Therapy Injection 13:29:56 CDT CPT-58617 Abx/Therapy Injection 08:36:16 CDT CPT-11976 Wet Mount - LAB USE ONLY 17:44:58 CDT CPT-18289 UA w micro - LAB USE ONLY 17:44:58 CDT CPT-08099 CMP - LAB USE ONLY 17:44:58 CDT CPT-85288 Venipuncture Draw Fee 17:44:58 CDT CPT-17032 Cervical Min 4V - XRAY USE ONLY 09:01:40 CDT CPT-29740 Chest 2V Frontal and Lat - XRAY USE ONLY 11:06:31 CDT CPT-37386 EKG Trac and Interp - XRAY USE ONLY 11:31:43 CDT 08/26 CPT-J3420 Vitamin B12 1000mcg (Cyanocobalamin) 08:10:26 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 04/12 CPT-14339 Abx/Therapy Injection 08:10:26 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 CPT-G0438 Initial Annual Wellness Exam 19:01:01 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 CPT-J3420 Vitamin B12 1000mcg (Cyanocobalamin) 16:57:46 CDT 08/14 CPT-14799 Recombivax HB Injection Suspension 5 MCG/0.5ML 08:37:50 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 CPT-23291 Immunization Single Admin 08:37:50 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 CPT-J3420 Vitamin B12 1000mcg (Cyanocobalamin) 08:32:16 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 03/11 CPT-78375 Abx/Therapy Injection 08:32:16 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 CPT-82410 Chest 2V Frontal and Lat 11:46:38 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 CPT-55550 Venipuncture Draw Fee 09:12:45 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 CPT-J3420 Vitamin B12 1000mcg (Cyanocobalamin) 08:50:15 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 02/08 CPT-37785 Abx/Therapy Injection 08:50:15 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 CPT-Cryo Cryotherapy 10:19:35 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 CPT-000 Give Appropriate Flu Vaccine 09:22:16 CDT CPT-J3420 Vitamin B12 1000mcg (Cyanocobalamin) 19:08:57 CDT 01/11 CPT-21630 Abx/Therapy Injection 19:08:57 CDT CPT-J3420 Vitamin B12 1000mcg (Cyanocobalamin) 08:19:08 CDT 12/11 CPT-42006 Abx/Therapy Injection 08:19:08 CDT CPT-J3420 Vitamin B12 1000mcg (Cyanocobalamin) 14:48:00 CDT 11/09 CPT-58975 Abx/Therapy Injection 14:47:59 CDT CPT-J3420 Vitamin B12 1000mcg (Cyanocobalamin) 08:34:04 CDT 10/09 CPT-64277 Abx/Therapy Injection 08:34:04 CDT CPT-J3420 Vitamin B12 1000mcg (Cyanocobalamin) 09:18:52 CDT 09/11 CPT-85916 Abx/Therapy Injection 09:18:52 CDT CPT-J3420 Vitamin B12 1000mcg (Cyanocobalamin) 08:35:44 CDT 09/04 CPT-03965 Abx/Therapy Injection 08:35:44 CDT CPT-64602 Immunization Single Admin 11:07:16 CDT CPT-89528 Hepatitis B adult IM 11:07:16 CDT CPT-J3420 Vitamin B12 1000mcg (Cyanocobalamin) 11:00:49 CDT 08/28 CPT-J1040 Depo Medrol 80 mg (Methyl Prednisolone Acetate) 11:00: 49 CDT CPT-53990 Abx/Therapy Injection 11:00:49 CDT CPT-J1040 Depo Medrol 80 mg (Methyl Prednisolone Acetate) 09:16: 23 CDT CPT-J3420 Vitamin B12 1000mcg (Cyanocobalamin) 08:27:05 CDT 08/20 CPT-15553 Abx/Therapy Injection 08:27:05 CDT CPT-47030 Recombivax HB Injection Suspension 5 MCG/0.5ML 10:00:41 CDT CPT-47109 Administration single or combination vaccine inc oral 10 :00:41 CDT CPT-81642 Sono transvag pelvis non OB uterus ovaries cervix 16:36: 57 CDT CPT-15071 LS spine comp w obliq 09:50:55 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 CPT-71402 Abd compl w upright 09:50:55 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 CPT-J1100 Decadron 4mg (Dexamethasone) 15:51:24 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 CPT-J1030 Depo Medrol 40 mg (Methyl Prednisolone Acetate) 15:51: 24 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 CPT-08255 Abx/Therapy Injection 15:51:24 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
--- OUTSIDE RECORDS SUMMARY | 2016-11-04 17:42 | XMS REPORT | Clinical Summary ---
Author Author Admin, E Organization [facility] Address Unknown Phone Unavailable Allergies, Adverse Reactions, Alerts Allergy Name Reaction Description Start Date Severity Status Provider REQUIP Unsure of reaction, states that she was in severe pain Critical Active Ahmet Carbajal MD AMITRIPTYLINE HCL Mood changes. LDA MA Critical Active Vishal Hui MD FANAPT heart palpitations Critical Active Vishal uHi [...] breath Nocturnal hypoxia 799.02 Active Fabiola Johnson FINANCIAL AID COUNSELOR Hypoxemia Neck pain 723.1 Resolved Vishal Hui [...] Hui MD Hot flashes ICD-627.2 Inactive Vishal Hiu MD Personality change ICD-301.9 Inactive Vishal [...] 6 hours as needed for cough GUAIFENESIN-CODEINE 32284943746 Active Ahmet Carbajal MD Active PREDNISONE 20 MG TABS 2 daily for 5 days then 1 daily for 5 days PREDNISONE 16299814831 Active Ahmet Carbajal MD Active LAMICTAL 100 MG ORAL TABS 1 tab q.d LAMOTRIGINE 93516726750 Active Ahmet Carbajal MD Active BENADRYL 25 MG CAP 4 po at bedtime for insomnia DIPHENHYDRAMINE HCL 38936993146 No Longer Active Ahmet Carbajal MD Active ADVAIR DISKUS 250-50 MCG/DOSE INH AEPB 1 puff twice a day for asthma FLUTICASONE-SALMETEROL 34301675077 No Longer Active Ahmet Carbajal MD Active KLONOPIN 1 MG ORAL TABS 1 tab po TID CLONAZEPAM 00747555433 No Longer Active Ahmet Carbajal MD Active ABILIFY MAINTENA 400 MG IM SUSR 400mg injection every 26 days ARIPIPRAZOLE 06143594033 No Longer Active Ahmet Carbajal MD Active HALOPERIDOL 10 MG ORAL TABS 1 tab q.d HALOPERIDOL 37270933597 Active Ahmet Carbajal MD Active ASPIRIN 325 MG ORAL TABS 1 tab q.d ASPIRIN 04599825449 Active Ahmet Carbajal MD Active HYDROCODONE-ACETAMINOPHEN 5-325 MG ORAL TABS 1 tab two times a day HYDROCODONE-ACETAMINOPHEN 14518876370 Active Ahmet Carbajal MD Active TRAMADOL HCL 50 MG TABS 1/2-1 tab TID PRN TRAMADOL HCL 36222600648 No Longer Active Ahmet Carbajal MD Active BACTRIM DS 800-160 MG TABS 1 twice a day SULFAMETHOXAZOLE- TRIMETHOPRIM 91916359017 No Longer Active Ahmet Carbajal MD Active PROAIR HFA 108 (90 BASE) MCG/ACT AERS 2 puffs four times a day as needed 2015 ALBUTEROL SULFATE 65274092120 Active Ahmet Carbajal MD Active EQ NICOTINE 21 MG/24HR TRANS PT24 Apply daily to stop smoking NICOTINE 98566952730 Active Ahmet Carbajal MD Active MONISTAT 7 COMBO PACK WOODROW 100 & 2 MG-% (9GM) VAG KIT 1 applicatorful per vagina q pm x 7 MICONAZOLE NITRATE 29601065092 No Longer Active Ahmet Carbajal MD Active FLAGYL 500 MG TAB 1 tablet by mouth bid METRONIDAZOLE 60468889897 No Longer Active Ahmet Carbajal MD Active OXYCODONE HCL ER 10 MG ORAL T12A 1/2 tab by mouth every 4 hours prn OXYCODONE HCL 37507144486 No Longer Active Ahmet Carbajal MD Active METHYLPREDNISOLONE 4 MG ORAL TABS po daily METHYLPREDNISOLONE 28479237422 No Longer Active Ahmet Carbajal MD Active LEVOFLOXACIN 500 MG ORAL TABS po daily LEVOFLOXACIN 19475734757 No Longer Active Ahmet Carbajal MD Active VIIBRYD 10 MG ORAL TABS Take 1 tablet once a day VILAZODONE HCL 66988489179 No Longer Active Ahmet Carbajal MD Active TOPAMAX 50 MG ORAL TABS 1 tab twice daily TOPIRAMATE 93257238246 No Longer Active Ahmet Carbajal MD Active DICLOFENAC SODIUM 50 MG TBEC 1 tablet by mouth four times daily PRN Pain 2015 DICLOFENAC SODIUM 59804511817 No Longer Active Ahmet Carbajal MD Active ADZENYS XR-ODT 6.3 MG ORAL TBED 1 tab po daily for ADHD AMPHETAMINE 11069531232 No Longer Active Ahmet Carbajal MD Active CHANTIX 1 MG TABS 1 twice a day to help quit smoking VARENICLINE TARTRATE 98504560060 No Longer Active Dipika Burgos MD Active CHANTIX STARTING MONTH EARNEST 0.5 MG X 11 & 1 MG X 42 TABS take as directed 2015 VARENICLINE TARTRATE 58815948869 No Longer Active Dipika Burgos MD Active TESSALON PERLES 100 MG CAP 1 to 2 tablets by mouth 3 times daily as needed for cough BENZONATATE 25045062583 No Longer Active Luigi Martínez FINANCIAL AID COUNSELOR Active IMITREX 50 MG ORAL TABS 0.5 po x 1 PRN Headache. May repeat dose x 1 in 2 hours if needed SUMATRIPTAN SUCCINATE 37929474453 Active Lynda Xiao CRITICAL CARE NURSE Active HYDROCODONE-ACETAMINOPHEN 5-325 MG TABS 1 to 2 four times a day as needed for pain use until can be seen by specialist HYDROCODONE- ACETAMINOPHEN 35899114293 No Longer Active Vishal Hui MD Active PROAIR HFA 108 (90 BASE) MCG/ACT AERS 2 puffs four times a day as needed 2015 ALBUTEROL SULFATE 54805343800 No Longer Active Vishal Hui MD Active PREDNISONE 20 MG TABS 2 daily for 5 days then 1 daily for 5 days PREDNISONE 81275337748 No Longer Active Vishal Hui MD Active ZITHROMAX Z-EARNEST 250 MG TABS 2 today and then 1 daily for 4 days AZITHROMYCIN 64638523481 No Longer Active Vishal Hui MD Active DICLOFENAC POTASSIUM TABS Take 1 tablet twice a day (pt. is not sure of the dose.) DICLOFENAC POTASSIUM TABS 50518846756 No Longer Active Vishal Hui MD Active VERAPAMIL HCL ER 120 MG ORAL CR-TABS Take 1 tablet by mouth twice a day. VERAPAMIL HCL 34370655677 Active Vishal Hui MD Active FLAGYL 500 MG TAB 1 tablet by mouth bid METRONIDAZOLE 81004726480 No Longer Active Vishal Hui MD Active FLUTICASONE PROPIONATE 50 MCG/ACT SUSP 2 sprays each nostril daily before bed. FLUTICASONE PROPIONATE 70545622511 Active Fabiola Johnson APRN Active VALIUM 5 MG TAB Take 1-2 tablets daily DIAZEPAM 42089984069 No Longer Active Fabiola Johnson APRN Active METOPROLOL TARTRATE 25 MG ORAL TABS 1/2 tablet twice daily for heart rate and blood pressure METOPROLOL TARTRATE 75341481768 No Longer Active Fabiola Johnson APRN Active MIRALAX ORAL POWD 17GMS DAILY IN WATER POLYETHYLENE GLYCOL 3350 06272728237 Active Vishal Hui MD Active MIRALAX PACK 1 po qd PRN Constipation POLYETHYLENE GLYCOL 3350 88496205771 No Longer Active Ahmet Carbajal MD Active MINIPRESS 2 MG CAPS 4 cap po at night PRAZOSIN HCL 37248781133 No Longer Active Ahmet Carbajal MD Active PIROXICAM 20 MG CAPS 1 cap po qd PRN Pain PIROXICAM 38326367893 No Longer Active Ahmet Carbajal MD Active TRAMADOL HCL 50 MG TABS 1-2 po TID PRN Pain TRAMADOL HCL 20528301277 No Longer Active Ahmet Carbajal MD Active METOPROLOL TARTRATE 50 MG TAB 1 po bid METOPROLOL TARTRATE 45798557520 No Longer Active Ahmet Carbajal MD Active ABILIFY 15 MG ORAL TABS 1 tab daily ARIPIPRAZOLE 67670364218 No Longer Active Ahmet Carbajal MD Active PROZAC 20 MG ORAL CAPS 1 tab daily FLUOXETINE HCL 92369413249 No Longer Active Ahmet Carbajal MD Active AMBIEN 5 MG ORAL TABS 1 tab at bedtime ZOLPIDEM TARTRATE 91786655600 No Longer Active Ahmet Carbajal MD Active PREDNISONE 20 MG TAB 2 tabs daily for 4 days, 1 tab daily for 4 days, 1/2 tab daily for 4 days PREDNISONE 46364777496 No Longer Active Ahmet Carbajal MD Active KEFLEX 500 MG CAP 1 po TID x 10 days CEPHALEXIN 54462446056 No Longer Active Vishal Hui MD Active SAPHRIS 5 MG SUBL 1 po bid ASENAPINE MALEATE 77258024060 No Longer Active Jillina Fralebron FINANCIAL AID COUNSELOR Active LATUDA 80 MG TABS Take one by mouth daily LURASIDONE HCL 74514698239 No Longer Active Jillina Frazelephraim FINANCIAL AID COUNSELOR Active AMLODIPINE BESYLATE 5 MG TABS 1 tablet by mouth daily AMLODIPINE BESYLATE 09952929999 No Longer Active Jillina Fralebron FINANCIAL AID COUNSELOR Active AMITRIPTYLINE HCL 100 MG TAB one at hs AMITRIPTYLINE HCL 95883175253 No Longer Active Vishal Hui MD Active TRAZODONE HCL 100 MG TAB take 1 at bedtime TRAZODONE HCL 79827307310 No Longer Active Vishal Hui MD Active VYVANSE 40 MG CAPS 1 daily, LISDEXAMFETAMINE DIMESYLATE 23293553865 No Longer Active Vishal Hui MD Active IBUPROFEN 600 MG TAB 1 po TID PRN IBUPROFEN 71365646420 No Longer Active Vishal Hui MD Active PROZAC 20 MG CAP Take one by mouth daily FLUOXETINE HCL 11475711740 No Longer Active Vishal Hui MD Active ZOFRAN 4 MG TABS 1 po q6hr PRN Nausea ONDANSETRON HCL Active Vishal Hui MD Active BACTRIM DS 800-160 MG TABS 1 pill by mouth twice daily SULFAMETHOXAZOLE-TRIMETHOPRIM 73685589163 No Longer Active Sahara Rodriguez MD PhD Active DIFLUCAN 150 MG TAB 1 tablet by mouth daily FLUCONAZOLE 53830911648 No Longer Active Vishal Hui MD Active TIZANIDINE HCL 4 MG TABS 1 po q6hr PRN Muscle Spasm/Back Pain TIZANIDINE HCL 44070011150 Active Vishal Hui MD Active CLINDAMYCIN HCL 150 MG CAPS 1 four times a day CLINDAMYCIN HCL 86595192945 No Longer Active Neeraj Collins MD Active KEFLEX 500 MG ORAL CAPS 1 cap QID by mouth CEPHALEXIN 02685681155 No Longer Active Neeraj Collins MD Active DIFLUCAN 150 MG TABS 1 pill every other day x 2 doses FLUCONAZOLE 16862055934 No Longer Active Sahara Rodriguez MD PhD Active MELATONIN 3 MG CAPS 2 po q hs MELATONIN 60677884281 No Longer Active Sahara Rodriguez MD PhD Active MULTIVITAMINS CAPS Take one by mouth daily MULTIPLE VITAMIN 20214804983 No Longer Active Sahara Rodriguez MD PhD Active BACTRIM DS 800-160 MG TAB 1 tab by mouth twice daily TRIMETHOPRIM-SULFAMETHOXAZOLE 77613245804 No Longer Active Sahara Rodriguez MD PhD Active [facility] PROBIOTIC ORAL CHEW 2 daily po PROBIOTIC PRODUCT 45883964624 No Longer Active Sahara Rodriguez MD PhD Active BACTRIM DS 800-160 MG TABS 1 po BID x 7 days SULFAMETHOXAZOLE-TRIMETHOPRIM 11535637876 No Longer Active Vishal Hui MD Active CHANTIX STARTING MONTH EARNEST 0.5 MG X 11 & 1 MG X 42 TABS 0.5mg daily for 3 days , then 0.5mg BID for 4 days, then 1mg BID VARENICLINE TARTRATE 28702005303 No Longer Active TAMARA Gray Active VERAPAMIL HCL CR 120 MG TAB CR 1 po bid VERAPAMIL HCL 80405544586 No Longer Active Vishal Hui MD Active METOPROLOL SUCCINATE 50 MG TB24 1 tablet by mouth daily METOPROLOL SUCCINATE 48544952565 No Longer Active Vishal Hui MD Active SAPHRIS 10 MG SUBL 1 tab po bid ASENAPINE MALEATE 32527341309 No Longer Active Vishal Hui MD Active LISINOPRIL 20 MG TABS 1 tab po qd LISINOPRIL 10584952782 No Longer Active Vishal Hui MD Active LATUDA 20 MG TABS Take one by mouth daily LURASIDONE HCL 48641795422 No Longer Active Vishal Hui MD Active TRAZODONE HCL 50 MG TABS 1/2 tab po qd prn for anxiety TRAZODONE HCL 40195122227 No Longer Active Vishal Hui MD Active OMEPRAZOLE 20 MG TBEC 1 po q a.m. 30min prior to first food intake OMEPRAZOLE 80669184678 Active Vishal Hui MD Active RANITIDINE HCL 150 MG CAPS 1 twice a day RANITIDINE HCL 10843509076 Active Luigi Martínez APRN Active LINZESS 290 MCG CAPS Take one by mouth daily LINACLOTIDE 38364330478 No Longer Active Vishal Hui MD Active SAPHRIS 5 MG SUBL 1 tab po qd ASENAPINE MALEATE 78327866328 No Longer Active Vishal Hui MD Active ZALEPLON 10 MG CAPS 1 cap po every other night ZALEPLON 96255987517 No Longer Active Vishal Hui MD Active LYRICA 50 MG CAPS 1 tab po TID PREGABALIN 26081955346 No Longer Active Vishal Hui MD Active LORATADINE 10 MG TABS 1 tab po qd LORATADINE 18338994454 No Longer Active Vishal Hui MD Active VERAPAMIL HCL ER 180 MG CR-TABS 1 tab po bid VERAPAMIL HCL 54660999571 No Longer Active Vishal Hui MD Active MIRALAX POWD 1 capfull once daily POLYETHYLENE GLYCOL 3350 41703196146 No Longer Active Vishal Hui MD Active PREDNISONE 20 MG TABS 1 tab po qd PREDNISONE 70074232979 No Longer Active Renzo Thornton DO Active LEVOFLOXACIN 500 MG TABS 1 tab po qd LEVOFLOXACIN 57754843302 No Longer Active Renzo Thornton DO Active BUSPIRONE HCL 15 MG TABS 1 tab po TID BUSPIRONE HCL 11688459293 No Longer Active Renzo Thornton DO Active BENZTROPINE MESYLATE 1 MG TABS 1 tab po qd BENZTROPINE MESYLATE 57778112420 No Longer Active Renzo Thornton DO Active ATENOLOL 25 MG TABS 1 tab po qd ATENOLOL 85861833538 No Longer Active Renzo Thornton DO Active ESCITALOPRAM OXALATE 20 MG TABS 1 tab po qd ESCITALOPRAM OXALATE 98830747238 No Longer Active Renzo Thornton DO Active ADVAIR DISKUS 250-50 MCG/DOSE AEPB 1 puff BID FLUTICASONE-SALMETEROL 75154440299 No Longer Active Renzo Thornton DO Active PREDNISONE 20 MG TAB 2 tabs daily for 3 days, 1 tab daily for 3 days, 1/2 tab daily for 2 days PREDNISONE 20285754103 No Longer Active Vishal Hui MD Active CEFDINIR 300 MG CAPS by mouth twice a day CEFDINIR 29243245351 No Longer Active Vishal Hui MD Active LANSOPRAZOLE 30 MG CPDR 1 cap po qd LANSOPRAZOLE 92211150726 No Longer Active Vishal Hui MD Active BACLOFEN 20 MG TABS 1 tab po tid BACLOFEN 94804578979 No Longer Active Vishal Hui MD Active ADVAIR DISKUS 250-50 MCG/DOSE AEPB 1 puff BID ADVAIR DISKUS 250-50 MCG/DOSE AEPB FLUTICASONE-SALMETEROL Inactive ESCITALOPRAM OXALATE 20 MG TABS 1 tab po qd ESCITALOPRAM OXALATE 20 MG TABS 119738 ESCITALOPRAM OXALATE Inactive ATENOLOL 25 MG TABS 1 tab po qd ATENOLOL 25 MG TABS 221983 ATENOLOL Inactive BENZTROPINE MESYLATE 1 MG TABS 1 tab po qd BENZTROPINE MESYLATE 1 MG TABS 470773 BENZTROPINE MESYLATE Inactive BUSPIRONE HCL 15 MG TABS 1 tab po TID BUSPIRONE HCL 15 MG TABS 936360 BUSPIRONE HCL Inactive LEVOFLOXACIN 500 MG TABS 1 tab po qd LEVOFLOXACIN 500 MG TABS 138575 LEVOFLOXACIN Inactive PREDNISONE 20 MG TABS 1 tab po qd PREDNISONE 20 MG TABS 770536 PREDNISONE Inactive MIRALAX POWD 1 capfull once daily MIRALAX POWD 851454 POLYETHYLENE GLYCOL 3350 Inactive VERAPAMIL HCL ER 180 MG CR-TABS 1 tab po bid VERAPAMIL HCL ER 180 MG CR-TABS VERAPAMIL HCL Inactive LORATADINE 10 MG TABS 1 tab po qd LORATADINE 10 MG TABS 519302 LORATADINE Inactive LYRICA 50 MG CAPS 1 tab po TID LYRICA 50 MG CAPS PREGABALIN Inactive ZALEPLON 10 MG CAPS 1 cap po every other night ZALEPLON 10 MG CAPS 859165 ZALEPLON Inactive SAPHRIS 5 MG SUBL 1 tab po qd SAPHRIS 5 MG SUBL ASENAPINE MALEATE Inactive TRAZODONE HCL 50 MG TABS 1/2 tab po qd prn for anxiety TRAZODONE HCL 50 MG TABS 115744 TRAZODONE HCL Inactive LATUDA 20 MG TABS Take one by mouth daily LATUDA 20 MG TABS LURASIDONE HCL Inactive LISINOPRIL 20 MG TABS 1 tab po qd LISINOPRIL 20 MG TABS 215835 LISINOPRIL Inactive SAPHRIS 10 MG SUBL 1 [...] twice daily BACTRIM DS 800-160 MG TAB 537081 TRIMETHOPRIM-SULFAMETHOXAZOLE Inactive MULTIVITAMINS CAPS Take one by mouth daily MULTIVITAMINS CAPS MULTIPLE VITAMIN Inactive MELATONIN 3 MG CAPS 2 po q hs MELATONIN 3 MG CAPS 989617 MELATONIN Inactive KEFLEX 500 MG ORAL CAPS 1 cap QID by mouth KEFLEX 500 MG ORAL CAPS 806137 CEPHALEXIN Inactive CLINDAMYCIN HCL 150 MG CAPS 1 four times a day CLINDAMYCIN HCL 150 MG CAPS 283970 CLINDAMYCIN HCL Inactive DIFLUCAN 150 MG TAB 1 tablet by mouth daily DIFLUCAN 150 MG TAB 916122 FLUCONAZOLE Inactive PROZAC 20 MG CAP Take one by mouth daily PROZAC 20 MG CAP 149933 FLUOXETINE HCL Inactive IBUPROFEN 600 MG TAB 1 po TID PRN IBUPROFEN 600 MG TAB 418959 IBUPROFEN Inactive VYVANSE 40 MG CAPS 1 daily, VYVANSE 40 MG CAPS LISDEXAMFETAMINE DIMESYLATE Inactive TRAZODONE HCL 100 MG TAB take 1 at bedtime TRAZODONE HCL 100 MG TAB 382752 TRAZODONE HCL Inactive AMITRIPTYLINE HCL 100 MG TAB one at hs AMITRIPTYLINE HCL 100 MG TAB 687858 AMITRIPTYLINE HCL Inactive AMLODIPINE BESYLATE 5 MG TABS 1 tablet by mouth daily AMLODIPINE BESYLATE 5 MG TABS 284614 AMLODIPINE BESYLATE Inactive LATUDA 80 MG TABS Take one by mouth daily LATUDA 80 MG TABS LURASIDONE HCL Inactive SAPHRIS 5 MG SUBL 1 po bid SAPHRIS 5 MG SUBL ASENAPINE MALEATE Inactive PREDNISONE 20 MG TAB 2 tabs daily for 4 days, 1 tab daily for 4 days, 1/2 tab daily for 4 days PREDNISONE 20 MG TAB 921757 PREDNISONE Inactive AMBIEN 5 MG ORAL TABS 1 tab at bedtime AMBIEN 5 MG ORAL TABS 373370 ZOLPIDEM TARTRATE Inactive PROZAC 20 MG ORAL CAPS 1 tab daily PROZAC 20 MG ORAL CAPS 763862 FLUOXETINE HCL Inactive ABILIFY 15 MG ORAL TABS 1 tab daily ABILIFY 15 MG ORAL TABS 266634 ARIPIPRAZOLE Inactive METOPROLOL TARTRATE 50 MG TAB 1 po bid METOPROLOL TARTRATE 50 MG TAB 381221 METOPROLOL TARTRATE Inactive TRAMADOL HCL 50 MG TABS 1-2 po TID PRN Pain TRAMADOL HCL 50 MG TABS 225474 TRAMADOL HCL Inactive PIROXICAM 20 MG CAPS 1 cap po qd PRN Pain PIROXICAM 20 MG CAPS 903570 PIROXICAM Inactive MINIPRESS 2 MG CAPS 4 cap po at night MINIPRESS 2 MG CAPS 562938 PRAZOSIN HCL Inactive MIRALAX PACK 1 po qd PRN Constipation MIRALAX PACK 594012 POLYETHYLENE GLYCOL 3350 Inactive METOPROLOL TARTRATE 25 MG ORAL TABS 1/2 tablet twice daily for heart rate and blood pressure METOPROLOL TARTRATE 25 MG ORAL TABS 435044 METOPROLOL TARTRATE Inactive VALIUM 5 MG TAB Take 1-2 tablets daily VALIUM 5 MG TAB 888238 DIAZEPAM Inactive FLAGYL 500 MG TAB 1 tablet by mouth bid FLAGYL 500 MG TAB 909296 METRONIDAZOLE Inactive DICLOFENAC POTASSIUM TABS Take 1 tablet twice a day (pt. is not sure of the dose.) DICLOFENAC POTASSIUM TABS DICLOFENAC POTASSIUM TABS Inactive ZITHROMAX Z-EARNEST 250 MG TABS 2 today and then 1 daily for 4 days ZITHROMAX Z-EARNEST 250 MG TABS 1373910 AZITHROMYCIN Inactive PREDNISONE 20 MG TABS 2 daily for 5 days then 1 daily for 5 days PREDNISONE 20 MG TABS 021577 PREDNISONE Inactive PROAIR HFA 108 (90 BASE) MCG/ACT AERS 2 puffs four times a day as needed 2015 PROAIR HFA 108 (90 BASE) MCG/ACT AERS ALBUTEROL SULFATE Inactive HYDROCODONE-ACETAMINOPHEN 5-325 MG TABS 1 to 2 four times a day as needed for pain use until can be seen by specialist HYDROCODONE- ACETAMINOPHEN 5-325 MG TABS 634410 HYDROCODONE-ACETAMINOPHEN Inactive TESSALON PERLES 100 MG CAP 1 to 2 tablets by mouth 3 times daily as needed for cough TESSALON PERLES 100 MG CAP 804011 BENZONATATE Inactive CHANTIX STARTING MONTH EARNEST 0.5 [...] PRN Pain 2015 DICLOFENAC SODIUM 50 MG [facility] 360216 DICLOFENAC SODIUM Inactive TOPAMAX 50 MG ORAL TABS 1 tab twice daily TOPAMAX 50 MG ORAL TABS 214480 TOPIRAMATE Inactive VIIBRYD 10 MG ORAL TABS Take 1 tablet once a day VIIBRYD 10 MG ORAL TABS VILAZODONE HCL Inactive LEVOFLOXACIN 500 MG ORAL TABS po daily LEVOFLOXACIN 500 MG ORAL TABS 271827 LEVOFLOXACIN Inactive METHYLPREDNISOLONE 4 MG ORAL TABS po daily METHYLPREDNISOLONE 4 MG ORAL TABS 610549 METHYLPREDNISOLONE Inactive OXYCODONE HCL ER 10 MG ORAL T12A 1/2 tab by mouth every 4 hours prn OXYCODONE HCL ER 10 MG ORAL T12A OXYCODONE HCL Inactive FLAGYL 500 MG TAB 1 tablet by mouth bid FLAGYL 500 MG TAB 393298 METRONIDAZOLE Inactive MONISTAT 7 COMBO PACK WOODROW 100 & 2 MG-% (9GM) VAG KIT 1 applicatorful per vagina q pm x 7 MONISTAT 7 COMBO PACK WOODROW 100 & 2 MG-% (9GM) VAG KIT MICONAZOLE NITRATE Inactive BACTRIM DS 800-160 MG TABS 1 twice a day BACTRIM DS 800-160 MG TABS 498958 SULFAMETHOXAZOLE-TRIMETHOPRIM Inactive TRAMADOL HCL 50 MG TABS 1/2-1 tab TID PRN TRAMADOL HCL 50 MG TABS 057278 TRAMADOL HCL Inactive ABILIFY MAINTENA 400 MG IM SUSR 400mg injection every 26 days ABILIFY MAINTENA 400 MG IM SUSR ARIPIPRAZOLE Inactive KLONOPIN 1 MG ORAL TABS 1 tab po TID KLONOPIN 1 MG ORAL TABS 679248 CLONAZEPAM Inactive ADVAIR DISKUS 250-50 MCG/DOSE INH AEPB 1 puff twice a day for asthma ADVAIR DISKUS 250-50 MCG/DOSE INH AEPB FLUTICASONE- SALMETEROL Inactive BENADRYL 25 MG CAP 4 po at bedtime for insomnia BENADRYL 25 MG CAP DIPHENHYDRAMINE HCL Inactive CEFDINIR 300 MG CAPS by mouth twice a day CEFDINIR 300 MG CAPS 102946 CEFDINIR Inactive PREDNISONE 20 MG TAB 2 tabs daily for 3 days, 1 tab daily for 3 days, 1/2 tab daily for 2 days PREDNISONE 20 MG TAB 551503 PREDNISONE Inactive BACTRIM DS 800-160 MG TABS 1 po BID x 7 days BACTRIM DS 800-160 MG TABS 19820521 SULFAMETHOXAZOLE-TRIMETHOPRIM Inactive DIFLUCAN 150 MG TABS 1 pill every other day x 2 doses DIFLUCAN 150 MG TABS 005704 FLUCONAZOLE Inactive BACTRIM DS 800-160 MG TABS 1 pill by mouth twice daily BACTRIM DS 800-160 MG TABS 19820521 SULFAMETHOXAZOLE-TRIMETHOPRIM Inactive KEFLEX 500 MG CAP 1 po TID x 10 days KEFLEX 500 MG CAP 773287 CEPHALEXIN Inactive Advance Directives Directive Description Start [...] % 11.6-14.8 platelet count 394 10^3/MM^3 10*3/mm3 769-181 8377/01/11 leukocyte count, blood 13.8 10^3/MM^3 10*3/mm3 4.6-10.2 [...] 369 10^3/MM^3 10*3/mm3 142-424 Lab Report: Chlamydia/GC [id number] - Lab chlamydia DNA probe NOT DETECTED NOT DETECTED Lab Report: Chlamydia/GC [id number] - Microbiology Neisseria gonorrhoeae DNA probe NOT DETECTED NOT DETECTED Lab Report: Comp. Metabolic Panel - Chemistry sodium, serum 140 mmol/L 856-900 5945/08/08 carbon dioxide, venous blood 33.7 mmol/L 21.0-32.0 potassium, serum 5.0 mmol/L 3.5-5.2 chloride, serum 103 mmol/L 98-107 blood glucose 80 mg/dL 65-110 urea nitrogen, blood 13 mg/dL 7-18 creatinine, serum 0.88 mg/dL 0.55-1.30 alanine aminotransferase (SGPT), serum 54 U/L - aspartate aminotransferase (SGOT), serum 29 U/L 15-37 calcium, serum 9.7 mg/dL 8.5-10.1 bilirubin, serum, total 0.30 mg/dL 0.00-1.00 sodium, serum 139 mmol/L 927-812 0101/12/22 carbon dioxide, venous blood 26.8 mmol/L 21.0-32.0 potassium, serum 4.2 mmol/L 3.5-5.2 chloride, serum 103 mmol/L 98-107 blood glucose 115 mg/dL 65-110 urea nitrogen, blood 20 mg/dL 7- creatinine, serum 0.90 mg/dL 0.55-1.30 alanine aminotransferase (SGPT), serum 38 U/L aspartate aminotransferase (SGOT), serum 19 U/L 15-37 calcium, serum 8.6 mg/dL 8.5-10.1 bilirubin, serum, total 0.30 mg/dL 0.00-1.00 sodium, serum 139 mmol/L 590-440 2486/01/11 carbon dioxide, venous blood 26.6 mmol/L 21.0-32.0 potassium, serum 4.1 mmol/L 3.5-5.2 chloride, serum 100 mmol/L 98-107 blood glucose 86 mg/dL 65-110 urea nitrogen, blood 16 mg/dL 7-18 creatinine, serum 1.00 mg/dL 0.55-1.30 alanine aminotransferase (SGPT), serum 48 U/L aspartate aminotransferase (SGOT), serum 17 U/L 15-37 calcium, serum 9.1 mg/dL 8.5-10.1 bilirubin, serum, total 0.40 mg/dL 0.00-1.00 sodium, serum 142 mmol/L 779-470 9242/06/08 carbon dioxide, venous blood 27.6 mmol/L 21.0-32.0 [...] mg/dL Encounters Code Encounter Date Provider Facility CPT-44795 Level 3 Est. Patient 10:40:11 GUIDANCE DIRECTOR Ahmet Carbajal MD [facility] CPT-23128 Level 3 Est. Patient 15:07:06 GUIDANCE DIRECTOR Neeraj Collins MD [facility] CPT-01604 Level 4 Est. Patient 14:45:00 GUIDANCE DIRECTOR Ahmet Carbajal MD [facility] CPT-66668 Level 3 Est. Patient 13:59:59 CDT Luigi Martínez APRN [facility] CPT-12123 Level 3 Est. Patient 18:18:53 CDT Neeraj Collins MD [facility] CPT-78020 Level 3 Est. Patient 15:50:44 CDT Vishal Hui MD [facility] CPT-40260 Level 3 Est. Patient 11:36:17 CDT Ahmet Carbajal MD [facility] CPT-50273 Level 3 Est. Patient 13:29:16 CDT Vishal Hui MD [facility] CPT-80624 Level 3 Est. Patient 14:27:52 CDT Neeraj Collins MD [facility] CPT-87275 Level 3 Est. Patient 08:56:03 CDT Luigi Martínez [facility] CPT-58885 Level 4 Est. Patient 12:11:48 CDT Fabiola Johnson [facility] CPT-61487 Level 3 New Patient 16:53:37 CDT Albert Caldera MD [facility] CPT-85044 Level 3 Est. Patient 11:25:49 CDT Renzo Thornton DO [facility] CPT-86327 Level 3 Est. Patient 15:22:01 CDT Ahmet Carbajal MD [facility] CPT-93181 Level 4 Est. Patient 09:00:51 GUIDANCE DIRECTOR Vishal Hui MD [facility] CPT-61585 Level 3 Est. Patient 11:37:33 GUIDANCE DIRECTOR Vishal Hui MD [facility] CPT-05628 Level 3 Est. Patient 08:41:09 GUIDANCE DIRECTOR Vishal Hui MD [facility] CPT-00802 Level 4 Est. Patient 10:19:35 GUIDANCE DIRECTOR Vishal Hui MD [facility] CPT-58116 Level 3 Est. Patient 13:35:45 CDT Vishal Hui MD [facility] CPT-39166 Level 4 Est. Patient 10:08:37 CDT Vishal Hui MD [facility] CPT-45591 Level 3 Est. Patient 11:22:10 CDT Vishal Hui MD [facility] CPT-99911 Level 3 Est. Patient 11:03:32 CDT Sahara Rodriguez MD [facility] CPT-64639 Level 3 Est. Patient 09:41:35 CDT Vishal Hui MD [facility] CPT-09741 Level 3 Est. Patient 12:00:41 CDT Neeraj Collins MD [facility] [place] CPT-56490 Level 3 Est. Patient 09:16:24 CDT Vishal Hui MD [facility] [place] CPT-04322 Level 4 Est. Patient 13:59:09 CDT Neeraj Collins MD [facility] [place] CPT-71683 Level 3 Est. Patient 15:19:43 CDT Renzo Thornton [facility] CPT-27676 Level 3 Est. Patient 18:10:26 CDT Sahara Rodriguez MD [facility]-67302 Level 3 Est. Patient 14:49:50 CDT Vishal Hui MD [facility]-41467 Level 4 Est. Patient 18:41:46 CDT Neeraj Collins MD [facility] [place] CPT-99678 Level 4 Est. Patient 09:18:38 GUIDANCE DIRECTOR Vishal Hui MD [facility] CPT-42426 Level 3 Est. Patient 14:43:55 GUIDANCE DIRECTOR Vishal Hui MD [facility] CPT-35747 Level 3 Est. Patient 15:26:33 GUIDANCE DIRECTOR Sahara Rodriguez MD [facility]-37941 Level 3 Est. Patient 10:32:14 GUIDANCE DIRECTOR Vishal Hui MD [facility] CPT-89975 Level 3 Est. Patient 15:12:52 GUIDANCE DIRECTOR Vishal Hui MD [facility] CPT-05938 Level 4 Est. Patient 09:19:27 CDT Vishal Hui MD [facility] CPT-59976 Level 3 Est. Patient 15:53:00 CDT Renzo Thornton [facility] CPT-48638 Level 3 Est. Patient 15:50:30 CDT Renzo Thornton [facility] CPT-09255 Level 3 Est. Patient 16:55:24 CDT Vishal Hui MD [facility] Procedures Code Procedure Name Date Entry Date Standard Description CPT-49335 Abx/Therapy Injection 17:34:30 GUIDANCE DIRECTOR CPT-40425 Nexplanon Removal with Reinsertion 14:09:32 CDT CPT-J7307 Nexplanon (Implant) 14:09:32 CDT CPT-OV Office Visit 14:09:32 CDT CPT-27299 UA w micro - LAB USE ONLY 16:21:13 CDT CPT-04720 Wet Mount - LAB USE ONLY 16:21:13 CDT CPT-52266 First Vx - Ix admin for Medicare patients 14:37:47 CDT CPT-02435 Fluzone Preservative Free Intramuscular Suspension 14:37 :47 CDT CPT-85447 Abx/Therapy Injection 13:54:22 CDT CPT-35091 Abx/Therapy Injection 08:47:09 CDT CPT-36364 Abx/Therapy Injection 13:29:56 CDT CPT-20624 Abx/Therapy Injection 08:36:16 CDT CPT-64086 Wet Mount - LAB USE ONLY 17:44:58 CDT CPT-83206 UA w micro - LAB USE ONLY 17:44:58 CDT CPT-15458 CMP - LAB USE ONLY 17:44:58 CDT CPT-75150 Venipuncture Draw Fee 17:44:58 CDT CPT-24748 Cervical Min 4V - XRAY USE ONLY 09:01:40 CDT CPT-57947 Chest 2V Frontal and Lat - XRAY USE ONLY 11:06:31 CDT CPT-53782 EKG Trac and Interp - XRAY USE ONLY 11:31:43 CDT 08/26 CPT-J3420 Vitamin B12 1000mcg (Cyanocobalamin) 08:10:26 GUIDANCE DIRECTOR 04/12 CPT-11292 Abx/Therapy Injection 08:10:26 GUIDANCE DIRECTOR CPT-G0438 Initial Annual Wellness Exam 19:01:01 GUIDANCE DIRECTOR CPT-J3420 Vitamin B12 1000mcg (Cyanocobalamin) 16:57:46 CDT 08/14 CPT-63528 Recombivax HB Injection Suspension 5 MCG/0.5ML 08:37:50 GUIDANCE DIRECTOR CPT-06915 Immunization Single Admin 08:37:50 GUIDANCE DIRECTOR CPT-J3420 Vitamin B12 1000mcg (Cyanocobalamin) 08:32:16 GUIDANCE DIRECTOR 03/11 CPT-87372 Abx/Therapy Injection 08:32:16 GUIDANCE DIRECTOR CPT-42197 Chest 2V Frontal and Lat 11:46:38 GUIDANCE DIRECTOR CPT-13896 Venipuncture Draw Fee 09:12:45 GUIDANCE DIRECTOR CPT-J3420 Vitamin B12 1000mcg (Cyanocobalamin) 08:50:15 GUIDANCE DIRECTOR 02/08 CPT-79276 Abx/Therapy Injection 08:50:15 GUIDANCE DIRECTOR CPT-Cryo Cryotherapy 10:19:35 GUIDANCE DIRECTOR CPT-000 Give Appropriate Flu Vaccine 09:22:16 CDT CPT-J3420 Vitamin B12 1000mcg (Cyanocobalamin) 19:08:57 CDT 01/11 CPT-16472 Abx/Therapy Injection 19:08:57 CDT CPT-J3420 Vitamin B12 1000mcg (Cyanocobalamin) 08:19:08 CDT 12/11 CPT-28906 Abx/Therapy Injection 08:19:08 CDT CPT-J3420 Vitamin B12 1000mcg (Cyanocobalamin) 14:48:00 CDT 11/09 CPT-92249 Abx/Therapy Injection 14:47:59 CDT CPT-J3420 Vitamin B12 1000mcg (Cyanocobalamin) 08:34:04 CDT 10/09 CPT-29033 Abx/Therapy Injection 08:34:04 CDT CPT-J3420 Vitamin B12 1000mcg (Cyanocobalamin) 09:18:52 CDT 09/11 CPT-61842 Abx/Therapy Injection 09:18:52 CDT CPT-J3420 Vitamin B12 1000mcg (Cyanocobalamin) 08:35:44 CDT 09/04 CPT-50578 Abx/Therapy Injection 08:35:44 CDT CPT-52135 Immunization Single Admin 11:07:16 CDT CPT-08200 Hepatitis B adult IM 11:07:16 CDT CPT-J3420 Vitamin B12 1000mcg (Cyanocobalamin) 11:00:49 CDT 08/28 CPT-J1040 Depo Medrol 80 mg (Methyl Prednisolone Acetate) 11:00: 49 CDT CPT-18131 Abx/Therapy Injection 11:00:49 CDT CPT-J1040 Depo Medrol 80 mg (Methyl Prednisolone Acetate) 09:16: 23 CDT CPT-J3420 Vitamin B12 1000mcg (Cyanocobalamin) 08:27:05 CDT 08/20 CPT-25552 Abx/Therapy Injection 08:27:05 CDT CPT-55694 Recombivax HB Injection Suspension 5 MCG/0.5ML 10:00:41 CDT CPT-92852 Administration single or combination vaccine inc oral 10 :00:41 CDT CPT-94753 Sono transvag pelvis non OB uterus ovaries cervix 16:36: 57 CDT CPT-00404 LS spine comp w obliq 09:50:55 GUIDANCE DIRECTOR CPT-70048 Abd compl w upright 09:50:55 GUIDANCE DIRECTOR CPT-J1100 Decadron 4mg (Dexamethasone) 15:51:24 GUIDANCE DIRECTOR CPT-J1030 Depo Medrol 40 mg (Methyl Prednisolone Acetate) 15:51: 24 GUIDANCE DIRECTOR CPT-58001 Abx/Therapy Injection 15:51:24 GUIDANCE DIRECTOR CPT-J1100 Decadron 4mg (Dexamethasone) 15:26:33 GUIDANCE DIRECTOR CPT-J1030 Depo Medrol 40 mg (Methyl Prednisolone Acetate) 15:26: 33 GUIDANCE DIRECTOR CPT-86996 Sono retroperitoneal complete kidneys and bladder 17:15: 30 CDT CPT-53866 Abd compl w upright 16:09:25 CDT CPT-J1100 Decadron 8mg (Dexamethasone) 17:07:57 CDT CPT-95794 Abx/Therapy Injection 17:07:57 CDT CPT-J1100 Decadron 8mg (Dexamethasone) 16:55:24 CDT CPT-77092 Chest 2V Frontal and Lat 16:32:44 CDT
--- OUTSIDE RECORDS SUMMARY | 2016-11-04 17:46 | XMS REPORT | Clinical Summary ---
Author Author Admin, [facility] Organization [facility] [employer] Address Unknown Phone Unavailable Allergies, Adverse Reactions, [...] Active Ahmet Carbajal MD Generalized anxiety disorder Fuse Maker well woman exam V72.31 Resolved Suzan [...] R D ICD-530.81 Inactive Vishal Hui MD Sinus tachycardia ICD-427.89 Inactive Suzan Boo APRN Health screening ICD-V70.0 Inactive Suzan Boo APRN Cellulitis ICD-682.9 Inactive Vishal Hui MD Pelvic [...] removal of sutures ICD-V58.32 Jim Hui MD Abdominal pain ICD-789.00 Jmi Hui MD Fatigue ICD-780.79 Jim Hui MD 2014 Leukocytosis ICD-288.60 Jim Hui MD UTI ICD-599.0 Jim Hui MD Personality change ICD-301.9 Jim Hui MD Elevated blood glucose ICD-790.29 Jim Hui MD Hot flashes ICD-627.2 Jim Hui MD Lipoma ICD-214.9 Inactive Albert Caldera [...] Bronchitis, acute ICD-466.0 Inactive Ahmet Carbajal MD Fuse Maker well woman exam ICD-V72.31 Inactive Suzan Boo APRN Bronchitis, acute with mild bronchospasm ICD-466.0 Inactive Suzan Boo APRN Tracheitis ICD-464.10 Inactive Suzan Boo APRN Localized adiposity ICD-278.1 Inactive Vishal Hui MD Shortness of breath ICD-786.05 Inactive Vishal Hui MD Impetigo ICD-684 Inactive Suzan Boo APRN Furuncle of buttock ICD-680.5 Inactive Suzan Boo [...] % OINT apply twice a day MUPIROCIN 92694460912 Active Suzan Boo APRN Active BACTRIM DS 800-160 MG TABS 1 twice a day SULFAMETHOXAZOLE- TRIMETHOPRIM 95353842667 Active Suzan Boo APRN Active [id number] 50-325-40 MG TABS 1 to 2 four times a day as needed for headache [id number] 50944561547 Active Suzan Boo APRN Active METOCLOPRAMIDE HCL 10 MG TABS 1 two times as needed for nausea and headaches METOCLOPRAMIDE HCL 27564748800 Active Meena Ortiz MA Active NYSTATIN 164684 UNIT/GM CREA apply three times a day to yeast rash NYSTATIN 61543894093 Active Suzan Boo APRN Active AMITIZA 24 MCG ORAL CAPS one capsule twice daily LUBIPROSTONE 07095634265 Active Suzan Boo APRN Active MIRALAX ORAL POWD 17GMS DAILY IN WATER POLYETHYLENE GLYCOL 3350 00459197350 No Longer Active Suzan Boo APRN Active LACTULOSE 10 GM/15ML ORAL SOLN 30mL oral BID for IBS-C LACTULOSE 73052434095 No Longer Active Suzan Boo APRN Active BACTRIM DS 800-160 MG TAB Take one (1) tablet by mouth twice a day for 5 days TRIMETHOPRIM-SULFAMETHOXAZOLE 74112977923 No Longer Active Suzan Boo APRN Active MUPIROCIN 2 % OINT apply twice a day MUPIROCIN 47663119112 No Longer Active Suzan Boo APRN Active BACTRIM DS 800-160 MG TABS 1 twice a day SULFAMETHOXAZOLE-TRIMETHOPRIM 25191064596 No Longer Active Suzan Boo APRN Active DIFLUCAN 150 MG TABS 1 by mouth for yeast FLUCONAZOLE 98025140667 No Longer Active Suzan Boo APRN Active LINZESS 290 MCG ORAL CAPS 1 tab 30 min prior to first meal each day. LINACLOTIDE 36772065582 No Longer Active Sheila Calderon LPN Active AMITIZA 8 MCG ORAL CAPS 1 tab BID LUBIPROSTONE 77215293603 No Longer Active Lynda Ninoska BHAKTAN Active TESSALON PERLES 100 MG CAPS 1 three times a day as needed for cough BENZONATATE 58932786062 No Longer Active Suzan Boo APRN Active BACTRIM DS 800-160 MG TABS 1 twice a day SULFAMETHOXAZOLE-TRIMETHOPRIM 10124445475 No Longer Active Suzan Boo APRN Active DIFLUCAN 150 MG TABS 1 by mouth for yeast FLUCONAZOLE 99033657076 No Longer Active Suzan Boo APRN Active EQ NICOTINE 21 MG/24HR TRANS PT24 Apply daily to stop smoking NICOTINE 79944122365 No Longer Active Suzan Boo APRN Active PREDNISONE 10 MG TABS 2 daily for 5 days then 1 daily for 5 days PREDNISONE 97908809833 No Longer Active Suzan Boo APRN Active LEVAQUIN 500 MG TABS 1 daily for infection LEVOFLOXACIN 78821307566 No Longer Active Suzan Boo APRN Active TROPICAMIDE 0.5 % OPHTH SOLN 1 drop PRN eye spasms TROPICAMIDE 06392360428 No Longer Active Suzan Boo APRN Active PREDNISONE 20 MG TAB 1 tablet daily x 4 days PREDNISONE 57373665451 No Longer Active Suzan Boo APRN Active ACETAMINOPHEN-CODEINE 120-12 MG/5ML SOLN 5 ml by mouth every 4-6 hours if needed for cough ACETAMINOPHEN-CODEINE 79375941945 No Longer Active Suzan Boo APRN Active KEFLEX 500 MG CAP 1 po qid CEPHALEXIN 83601497489 No Longer Active Suzan Boo APRN Active FLOVENT HFA 110 MCG/ACT AERO 2 puffs inhaled b.i.d. FLUTICASONE PROPIONATE HFA 49900169707 Active Renzo Thornton Active RISPERDAL 4 MG ORAL TABS 1 tab at bedtime RISPERIDONE 99721703892 Active Samantha Rothman RMA Active ZOFRAN 4 MG TABS 1 po q6hr PRN Nausea ONDANSETRON HCL No Longer Active Suzan Boo APRN Active FLUTICASONE PROPIONATE 50 MCG/ACT SUSP 2 sprays each nostril daily before bed. FLUTICASONE PROPIONATE 07300726691 No Longer Active Suzan Boo APRN Active ASPIRIN 325 MG ORAL TABS 1 tab q.d ASPIRIN 74802589705 No Longer Active Suzan Boo APRN Active HALOPERIDOL 10 MG ORAL TABS 1 tab q.d HALOPERIDOL 67419901180 No Longer Active Suzan Boo APRN Active GUAIFENESIN-CODEINE 100-10 MG/5ML SYRP 5ml every 4 to 6 hours as needed for cough GUAIFENESIN-CODEINE 46526990735 No Longer Active Suzan Boo APRN Active ZITHROMAX Z-EARNEST 250 MG TABS 2 today and then 1 daily for 4 days AZITHROMYCIN 11124761419 No Longer Active Suzan Boo APRN Active CLONAZEPAM 1 MG ORAL TABS 1 twice a day and an additional 1 tablet every other day as needed for pseudoseizures or anxiety CLONAZEPAM 07124734786 Active Suzan Boo APRN Active HYDROCODONE-ACETAMINOPHEN 5-325 MG ORAL TABS 1 tab two times a day HYDROCODONE-ACETAMINOPHEN 04588942380 No Longer Active Ahmet Carbajal MD Active LAMICTAL 100 MG ORAL TABS 1 tab 2 times qd. LAMOTRIGINE 98519000724 Active Ahmet Carbajal MD Active PREDNISONE 20 MG TABS 2 daily for 5 days then 1 daily for 5 days PREDNISONE 35625155610 No Longer Active Ahmet Carbajal MD Active FLUTICASONE PROPIONATE 50 MCG/ACT SUSP 1 to 2 sprays each nostril daily for allergies FLUTICASONE PROPIONATE 99544332044 Active Tila Nicolas Active BENADRYL 25 MG CAP 4 po at bedtime for insomnia DIPHENHYDRAMINE HCL 77713304105 No Longer Active Ahmet Carbajal MD Active ADVAIR DISKUS 250-50 MCG/DOSE INH AEPB 1 puff twice a day for asthma FLUTICASONE-SALMETEROL 25973595000 No Longer Active Ahmet Carbajal MD Active KLONOPIN 1 MG ORAL TABS 1 tab po TID CLONAZEPAM 14006401304 No Longer Active Ahmet Carbajal MD Active ABILIFY MAINTENA 400 MG IM SUSR 400mg injection every 26 days ARIPIPRAZOLE 21752406932 No Longer Active Ahmet Carbajal MD Active TRAMADOL HCL 50 MG TABS 1/2-1 tab TID PRN TRAMADOL HCL 84983391596 No Longer Active Ahmet Carbajal MD Active BACTRIM DS 800-160 MG TABS 1 twice a day SULFAMETHOXAZOLE- TRIMETHOPRIM 56395157945 No Longer Active Ahmet Carbajal MD Active PROAIR HFA 108 (90 BASE) MCG/ACT AERS 2 puffs four times a day as needed 2015 ALBUTEROL SULFATE 60614761941 Active Honey Hinton ANIMAL HUSBANDRY TEACHER Active MONISTAT 7 COMBO PACK WOODROW 100 & 2 MG-% (9GM) VAG KIT 1 applicatorful per vagina q pm x 7 MICONAZOLE NITRATE 90797783807 No Longer Active Ahmet Carbajal MD Active FLAGYL 500 MG TAB 1 tablet by mouth bid METRONIDAZOLE 91271995024 No Longer Active Ahmet Carbajal MD Active OXYCODONE HCL ER 10 MG ORAL T12A 1/2 tab by mouth every 4 hours prn OXYCODONE HCL 69707110469 No Longer Active Ahmet Carbajal MD Active METHYLPREDNISOLONE 4 MG ORAL TABS po daily METHYLPREDNISOLONE 24707094320 No Longer Active Ahmet Carbajal MD Active LEVOFLOXACIN 500 MG ORAL TABS po daily LEVOFLOXACIN 35091761847 No Longer Active Ahmet Carbajal MD Active VIIBRYD 10 MG ORAL TABS Take 1 tablet once a day VILAZODONE HCL 18485984882 No Longer Active Ahmet Carbajal MD Active TOPAMAX 50 MG ORAL TABS 1 tab twice daily TOPIRAMATE 29160196404 No Longer Active Ahmet Carbajal MD Active DICLOFENAC SODIUM 50 MG TBEC 1 tablet by mouth four times daily PRN Pain 2015 DICLOFENAC SODIUM 67154286444 No Longer Active Ahmet Carbajal MD Active ADZENYS XR-ODT 6.3 MG ORAL TBED 1 tab po daily for ADHD AMPHETAMINE 65399883728 No Longer Active Ahmet Carbajal MD Active CHANTIX 1 MG TABS 1 twice a day to help quit smoking VARENICLINE TARTRATE 97080085671 No Longer Active Dipika Burgos MD Active CHANTIX STARTING MONTH EARNEST 0.5 MG X 11 & 1 MG X 42 TABS take as directed 2015 VARENICLINE TARTRATE 47183241924 No Longer Active Dipika Burgos MD Active TESSALON PERLES 100 MG CAP 1 to 2 tablets by mouth 3 times daily as needed for cough BENZONATATE 66128390880 No Longer Active Luigi Martínez APRN Active IMITREX 50 MG ORAL TABS 0.5 po x 1 PRN Headache. May repeat dose x 1 in 2 hours if needed SUMATRIPTAN SUCCINATE 43111455464 Active TAMARA Casey Active HYDROCODONE-ACETAMINOPHEN 5-325 MG TABS 1 to 2 four times a day as needed for pain use until can be seen by specialist HYDROCODONE- ACETAMINOPHEN 46343519571 No Longer Active Vishal Hui MD Active PROAIR HFA 108 (90 BASE) MCG/ACT AERS 2 puffs four times a day as needed 2015 ALBUTEROL SULFATE 96937725226 No Longer Active Vishal Hui MD Active PREDNISONE 20 MG TABS 2 daily for 5 days then 1 daily for 5 days PREDNISONE 21895405745 No Longer Active Vishal Hui MD Active ZITHROMAX Z-EARNEST 250 MG TABS 2 today and then 1 daily for 4 days AZITHROMYCIN 25440948213 No Longer Active Vishal Hui MD Active DICLOFENAC POTASSIUM TABS Take 1 tablet twice a day (pt. is not sure of the dose.) DICLOFENAC POTASSIUM TABS 62793231833 No Longer Active Vishal Hui MD Active VERAPAMIL HCL ER 120 MG ORAL CR-TABS Take 1 tablet by mouth twice a day. VERAPAMIL HCL 36583517858 Active Vishal Hui MD Active FLAGYL 500 MG TAB 1 tablet by mouth bid METRONIDAZOLE 68383082064 No Longer Active Vishal Hui MD Active VALIUM 5 MG TAB Take 1-2 tablets daily DIAZEPAM 91666184330 No Longer Active Fabiola Johnson APRN Active METOPROLOL TARTRATE 25 MG ORAL TABS 1/2 tablet twice daily for heart rate and blood pressure METOPROLOL TARTRATE 41677316962 No Longer Active Fabiola Johnson APRN Active MIRALAX PACK 1 po qd PRN Constipation POLYETHYLENE GLYCOL 3350 20061791494 No Longer Active Ahmet Carbajal MD Active MINIPRESS 2 MG CAPS 4 cap po at night PRAZOSIN HCL 89162504585 No Longer Active Ahmet Carbajal MD Active PIROXICAM 20 MG CAPS 1 cap po qd PRN Pain PIROXICAM 14690660393 No Longer Active Ahmet Carbajal MD Active TRAMADOL HCL 50 MG TABS 1-2 po TID PRN Pain TRAMADOL HCL 51439659757 No Longer Active Ahmet Carbajal MD Active METOPROLOL TARTRATE 50 MG TAB 1 po bid METOPROLOL TARTRATE 47140760727 No Longer Active Ahmet Carbajal MD Active ABILIFY 15 MG ORAL TABS 1 tab daily ARIPIPRAZOLE 34439817486 No Longer Active Ahmet Carbajal MD Active PROZAC 20 MG ORAL CAPS 1 tab daily FLUOXETINE HCL 43347462749 No Longer Active Ahmet Carbajal MD Active AMBIEN 5 MG ORAL TABS 1 tab at bedtime ZOLPIDEM TARTRATE 44361413184 No Longer Active Ahmet Carbajal MD Active PREDNISONE 20 MG TAB 2 tabs daily for 4 days, 1 tab daily for 4 days, 1/2 tab daily for 4 days PREDNISONE 81390172329 No Longer Active Ahmet Carbajal MD Active KEFLEX 500 MG CAP 1 po TID x 10 days CEPHALEXIN 18536437026 No Longer Active Vishal Hui MD Active SAPHRIS 5 MG SUBL 1 po bid ASENAPINE MALEATE 13043008487 No Longer Active Jillina Mauricio NORIEGA Active LATUDA 80 MG TABS Take one by mouth daily LURASIDONE HCL 47161991997 No Longer Active Jillina Fradwightl ANIMAL HUSBANDRY TEACHER Active AMLODIPINE BESYLATE 5 MG TABS 1 tablet by mouth daily AMLODIPINE BESYLATE 00785693671 No Longer Active Jillina Fradwightl ANIMAL HUSBANDRY TEACHER Active AMITRIPTYLINE HCL 100 MG TAB one at hs AMITRIPTYLINE HCL 54099011663 No Longer Active Vishal Hui MD Active TRAZODONE HCL 100 MG TAB take 1 at bedtime TRAZODONE HCL 33354952514 No Longer Active Vishal Hui MD Active VYVANSE 40 MG CAPS 1 daily, LISDEXAMFETAMINE DIMESYLATE 04080749898 No Longer Active Vishal Hui MD Active IBUPROFEN 600 MG TAB 1 po TID PRN IBUPROFEN 34765612213 No Longer Active Vishal Hui MD Active PROZAC 20 MG CAP Take one by mouth daily FLUOXETINE HCL 05663232428 No Longer Active Vishal Hui MD Active BACTRIM DS 800-160 MG TABS 1 pill by mouth twice daily SULFAMETHOXAZOLE-TRIMETHOPRIM 65027129758 No Longer Active Sahara Rodriguez MD PhD Active DIFLUCAN 150 MG TAB 1 tablet by mouth daily FLUCONAZOLE 91044925712 No Longer Active Vishal Hui MD Active TIZANIDINE HCL 4 MG TABS 1 po q6hr PRN Muscle Spasm/Back Pain TIZANIDINE HCL 96370811688 Active TAMARA Casey Active CLINDAMYCIN HCL 150 MG CAPS 1 four times a day CLINDAMYCIN HCL 54882399091 No Longer Active Neeraj Collins MD Active KEFLEX 500 MG ORAL CAPS 1 cap QID by mouth CEPHALEXIN 53171388042 No Longer Active Neeraj Collins MD Active DIFLUCAN 150 MG TABS 1 pill every other day x 2 doses FLUCONAZOLE 18783641898 No Longer Active Sahara Rodriguez MD PhD Active MELATONIN 3 MG CAPS 2 po q hs MELATONIN 93936736475 No Longer Active Sahara Rodriguez MD PhD Active MULTIVITAMINS CAPS Take one by mouth daily MULTIPLE VITAMIN 88881728400 No Longer Active Sahara Rodriguez MD PhD Active BACTRIM DS 800-160 MG TAB 1 tab by mouth twice daily TRIMETHOPRIM-SULFAMETHOXAZOLE 76151281863 No Longer Active Sahara Rodriguez MD PhD Active [facility] PROBIOTIC ORAL CHEW 2 daily po PROBIOTIC PRODUCT 99711676145 No Longer Active Sahara Rodriguez MD PhD Active BACTRIM DS 800-160 MG TABS 1 po BID x 7 days SULFAMETHOXAZOLE-TRIMETHOPRIM 95300076198 No Longer Active Vishal Hui MD Active CHANTIX STARTING MONTH EARNEST 0.5 MG X 11 & 1 MG X 42 TABS 0.5mg daily for 3 days , then 0.5mg BID for 4 days, then 1mg BID VARENICLINE TARTRATE 04176132101 No Longer Active Lisette Scarrow, RMA Active VERAPAMIL HCL CR 120 MG TAB CR 1 po bid VERAPAMIL HCL 86564675663 No Longer Active Vishal Hui MD Active METOPROLOL SUCCINATE 50 MG TB24 1 tablet by mouth daily METOPROLOL SUCCINATE 33935835931 No Longer Active Vishal Hui MD Active SAPHRIS 10 MG SUBL 1 tab po bid ASENAPINE MALEATE 79077779488 No Longer Active Vishal Hui MD Active LISINOPRIL 20 MG TABS 1 tab po qd LISINOPRIL 54957741850 No Longer Active Vishal Hui MD Active LATUDA 20 MG TABS Take one by mouth daily LURASIDONE HCL 03588338463 No Longer Active Vishal Hui MD Active TRAZODONE HCL 50 MG TABS 1/2 tab po qd prn for anxiety TRAZODONE HCL 81578783433 No Longer Active Vishal Hui MD Active OMEPRAZOLE 20 MG TBEC 1 po q a.m. 30min prior to first food intake OMEPRAZOLE 72082823575 Active Bertha Kirby, RMA Active RANITIDINE HCL 150 MG CAPS 1 twice a day RANITIDINE HCL 00227748549 Active Lynda Xiao LPN Active LINZESS 290 MCG CAPS Take one by mouth daily LINACLOTIDE 11508074114 No Longer Active Vishal Hui MD Active SAPHRIS 5 MG SUBL 1 tab po qd ASENAPINE MALEATE 99719159565 No Longer Active Vishal Hui MD Active ZALEPLON 10 MG CAPS 1 cap po every other night ZALEPLON 15973457055 No Longer Active Vishal Hui MD Active LYRICA 50 MG CAPS 1 tab po TID PREGABALIN 25387934647 No Longer Active Vishal Hui MD Active LORATADINE 10 MG TABS 1 tab po qd LORATADINE 67198119411 No Longer Active Vishal Hui MD Active VERAPAMIL HCL ER 180 MG CR-TABS 1 tab po bid VERAPAMIL HCL 71312258757 No Longer Active Vishal Hui MD Active MIRALAX POWD 1 capfull once daily POLYETHYLENE GLYCOL 3350 23074522871 No Longer Active Vishal Hui MD Active PREDNISONE 20 MG TABS 1 tab po qd PREDNISONE 62657124602 No Longer Active Renzo Thornton DO Active LEVOFLOXACIN 500 MG TABS 1 tab po qd LEVOFLOXACIN 71079957995 No Longer Active Renzo Thornton DO Active BUSPIRONE HCL 15 MG TABS 1 tab po TID BUSPIRONE HCL 09465759050 No Longer Active Renzo Thornton DO Active BENZTROPINE MESYLATE 1 MG TABS 1 tab po qd BENZTROPINE MESYLATE 15496950354 No Longer Active Renzo Thornton DO Active ATENOLOL 25 MG TABS 1 tab po qd ATENOLOL 09217990755 No Longer Active Renzo Thornton DO Active ESCITALOPRAM OXALATE 20 MG TABS 1 tab po qd ESCITALOPRAM OXALATE 53051459029 No Longer Active Renzo Thornton DO Active ADVAIR DISKUS 250-50 MCG/DOSE AEPB 1 puff BID FLUTICASONE-SALMETEROL 94456140070 No Longer Active Renzo Thornton DO Active PREDNISONE 20 MG TAB 2 tabs daily for 3 days, 1 tab daily for 3 days, 1/2 tab daily for 2 days PREDNISONE 78230641929 No Longer Active Vishal Hui MD Active CEFDINIR 300 MG CAPS by mouth twice a day CEFDINIR 08303517728 No Longer Active Vishal Hui MD Active LANSOPRAZOLE 30 MG CPDR 1 cap po qd LANSOPRAZOLE 09582026884 No Longer Active Vishal Hui MD Active BACLOFEN 20 MG TABS 1 tab po tid BACLOFEN 77029869424 No Longer Active Vishal W Dillow MD Active ADVAIR DISKUS 250-50 MCG/DOSE AEPB 1 puff BID ADVAIR DISKUS 250-50 MCG/DOSE AEPB FLUTICASONE-SALMETEROL Inactive ESCITALOPRAM OXALATE 20 MG TABS 1 tab po qd ESCITALOPRAM OXALATE 20 MG TABS 512969 ESCITALOPRAM OXALATE Inactive ATENOLOL 25 MG TABS 1 tab po qd ATENOLOL 25 MG TABS 856163 ATENOLOL Inactive BENZTROPINE MESYLATE 1 MG TABS 1 tab po qd BENZTROPINE MESYLATE 1 MG TABS 070112 BENZTROPINE MESYLATE Inactive BUSPIRONE HCL 15 MG TABS 1 tab po TID BUSPIRONE HCL 15 MG TABS 256808 BUSPIRONE HCL Inactive LEVOFLOXACIN 500 MG TABS 1 tab po qd LEVOFLOXACIN 500 MG TABS 616048 LEVOFLOXACIN Inactive PREDNISONE 20 MG TABS 1 tab po qd PREDNISONE 20 MG TABS 283077 PREDNISONE Inactive MIRALAX POWD 1 capfull once daily MIRALAX POWD 231938 POLYETHYLENE GLYCOL 3350 Inactive VERAPAMIL HCL ER 180 MG CR-TABS 1 tab po bid VERAPAMIL HCL ER 180 MG CR-TABS VERAPAMIL HCL Inactive LORATADINE 10 MG TABS 1 tab po qd LORATADINE 10 MG TABS 500042 LORATADINE Inactive LYRICA 50 MG CAPS 1 tab po TID LYRICA 50 MG CAPS PREGABALIN Inactive ZALEPLON 10 MG CAPS 1 cap po every other night ZALEPLON 10 MG CAPS 901824 ZALEPLON Inactive SAPHRIS 5 MG SUBL 1 tab po qd SAPHRIS 5 MG SUBL ASENAPINE MALEATE Inactive TRAZODONE HCL 50 MG TABS 1/2 tab po qd prn for anxiety TRAZODONE HCL 50 MG TABS 652042 TRAZODONE HCL Inactive LATUDA 20 MG TABS Take one by mouth daily LATUDA 20 MG TABS LURASIDONE HCL Inactive LISINOPRIL 20 MG TABS 1 tab po qd LISINOPRIL 20 MG TABS 806610 LISINOPRIL Inactive SAPHRIS 10 MG SUBL 1 [...] twice daily BACTRIM DS 800-160 MG TAB 367238 TRIMETHOPRIM-SULFAMETHOXAZOLE Inactive MULTIVITAMINS CAPS Take one by mouth daily MULTIVITAMINS CAPS MULTIPLE VITAMIN Inactive MELATONIN 3 MG CAPS 2 po q hs MELATONIN 3 MG CAPS 867835 MELATONIN Inactive KEFLEX 500 MG ORAL CAPS 1 cap QID by mouth KEFLEX 500 MG ORAL CAPS 671320 CEPHALEXIN Inactive CLINDAMYCIN HCL 150 MG CAPS 1 four times a day CLINDAMYCIN HCL 150 MG CAPS 992352 CLINDAMYCIN HCL Inactive DIFLUCAN 150 MG TAB 1 tablet by mouth daily DIFLUCAN 150 MG TAB 852067 FLUCONAZOLE Inactive PROZAC 20 MG CAP Take one by mouth daily PROZAC 20 MG CAP 228221 FLUOXETINE HCL Inactive IBUPROFEN 600 MG TAB 1 po TID PRN IBUPROFEN 600 MG TAB 635966 IBUPROFEN Inactive VYVANSE 40 MG CAPS 1 daily, VYVANSE 40 MG CAPS LISDEXAMFETAMINE DIMESYLATE Inactive TRAZODONE HCL 100 MG TAB take 1 at bedtime TRAZODONE HCL 100 MG TAB 920389 TRAZODONE HCL Inactive AMITRIPTYLINE HCL 100 MG TAB one at hs AMITRIPTYLINE HCL 100 MG TAB 564780 AMITRIPTYLINE HCL Inactive AMLODIPINE BESYLATE 5 MG TABS 1 tablet by mouth daily AMLODIPINE BESYLATE 5 MG TABS 932778 AMLODIPINE BESYLATE Inactive LATUDA 80 MG TABS Take one by mouth daily LATUDA 80 MG TABS LURASIDONE HCL Inactive SAPHRIS 5 MG SUBL 1 po bid SAPHRIS 5 MG SUBL ASENAPINE MALEATE Inactive PREDNISONE 20 MG TAB 2 tabs daily for 4 days, 1 tab daily for 4 days, 1/2 tab daily for 4 days PREDNISONE 20 MG TAB 413613 PREDNISONE Inactive AMBIEN 5 MG ORAL TABS 1 tab at bedtime AMBIEN 5 MG ORAL TABS 216001 ZOLPIDEM TARTRATE Inactive PROZAC 20 MG ORAL CAPS 1 tab daily PROZAC 20 MG ORAL CAPS 804808 FLUOXETINE HCL Inactive ABILIFY 15 MG ORAL TABS 1 tab daily ABILIFY 15 MG ORAL TABS 805292 ARIPIPRAZOLE Inactive METOPROLOL TARTRATE 50 MG TAB 1 po bid METOPROLOL TARTRATE 50 MG TAB 832197 METOPROLOL TARTRATE Inactive TRAMADOL HCL 50 MG TABS 1-2 po TID PRN Pain TRAMADOL HCL 50 MG TABS 729777 TRAMADOL HCL Inactive PIROXICAM 20 MG CAPS 1 cap po qd PRN Pain PIROXICAM 20 MG CAPS 447391 PIROXICAM Inactive MINIPRESS 2 MG CAPS 4 cap po at night MINIPRESS 2 MG CAPS 835957 PRAZOSIN HCL Inactive MIRALAX PACK 1 po qd PRN Constipation MIRALAX PACK 857798 POLYETHYLENE GLYCOL 3350 Inactive METOPROLOL TARTRATE 25 MG ORAL TABS 1/2 tablet twice daily for heart rate and blood pressure METOPROLOL TARTRATE 25 MG ORAL TABS 892021 METOPROLOL TARTRATE Inactive VALIUM 5 MG TAB Take 1-2 tablets daily VALIUM 5 MG TAB 803527 DIAZEPAM Inactive FLAGYL 500 MG TAB 1 tablet by mouth bid FLAGYL 500 MG TAB 876443 METRONIDAZOLE Inactive DICLOFENAC POTASSIUM TABS Take 1 tablet twice a day (pt. is not sure of the dose.) DICLOFENAC POTASSIUM TABS DICLOFENAC POTASSIUM TABS Inactive ZITHROMAX Z-EARNEST 250 MG TABS 2 today and then 1 daily for 4 days ZITHROMAX Z-EARNEST 250 MG TABS 9631840 AZITHROMYCIN Inactive PREDNISONE 20 MG TABS 2 daily for 5 days then 1 daily for 5 days PREDNISONE 20 MG TABS 647253 PREDNISONE Inactive PROAIR HFA 108 (90 BASE) MCG/ACT AERS 2 puffs four times a day as needed 2015 PROAIR HFA 108 (90 BASE) MCG/ACT AERS ALBUTEROL SULFATE Inactive HYDROCODONE-ACETAMINOPHEN 5-325 MG TABS 1 to 2 four times a day as needed for pain use until can be seen by specialist HYDROCODONE- ACETAMINOPHEN 5-325 MG TABS 865708 HYDROCODONE-ACETAMINOPHEN Inactive TESSALON PERLES 100 MG CAP 1 to 2 tablets by mouth 3 times daily as needed for cough TESSALON PERLES 100 MG CAP 045034 BENZONATATE Inactive CHANTIX STARTING MONTH EARNEST 0.5 [...] Pain 2015 DICLOFENAC SODIUM 50 MG TBEC 426997 DICLOFENAC SODIUM Inactive TOPAMAX 50 MG ORAL TABS 1 tab twice daily TOPAMAX 50 MG ORAL TABS 526068 TOPIRAMATE Inactive VIIBRYD 10 MG ORAL TABS Take 1 tablet once a day VIIBRYD 10 MG ORAL TABS VILAZODONE HCL Inactive LEVOFLOXACIN 500 MG ORAL TABS po daily LEVOFLOXACIN 500 MG ORAL TABS 258448 LEVOFLOXACIN Inactive METHYLPREDNISOLONE 4 MG ORAL TABS po daily METHYLPREDNISOLONE 4 MG ORAL TABS 056534 METHYLPREDNISOLONE Inactive OXYCODONE HCL ER 10 MG ORAL T12A 1/2 tab by mouth every 4 hours prn OXYCODONE HCL ER 10 MG ORAL T12A OXYCODONE HCL Inactive FLAGYL 500 MG TAB 1 tablet by mouth bid FLAGYL 500 MG TAB 160682 METRONIDAZOLE Inactive MONISTAT 7 COMBO PACK WOODROW 100 & 2 MG-% (9GM) VAG KIT 1 applicatorful per vagina q pm x 7 MONISTAT 7 COMBO PACK WOODROW 100 & 2 MG-% (9GM) VAG KIT MICONAZOLE NITRATE Inactive BACTRIM DS 800-160 MG TABS 1 twice a day BACTRIM DS 800-160 MG TABS 146321 SULFAMETHOXAZOLE-TRIMETHOPRIM Inactive TRAMADOL HCL 50 MG TABS 1/2-1 tab TID PRN TRAMADOL HCL 50 MG TABS 185709 TRAMADOL HCL Inactive ABILIFY MAINTENA 400 MG IM SUSR 400mg injection every 26 days ABILIFY MAINTENA 400 MG IM SUSR ARIPIPRAZOLE Inactive KLONOPIN 1 MG ORAL TABS 1 tab po TID KLONOPIN 1 MG ORAL TABS 406203 CLONAZEPAM Inactive ADVAIR DISKUS 250-50 MCG/DOSE INH AEPB 1 puff twice a day for asthma ADVAIR DISKUS 250-50 MCG/DOSE INH AEPB FLUTICASONE- SALMETEROL Inactive BENADRYL 25 MG CAP 4 po at bedtime for insomnia BENADRYL 25 MG CAP DIPHENHYDRAMINE HCL Inactive PREDNISONE 20 MG TABS 2 daily for 5 days then 1 daily for 5 days PREDNISONE 20 MG TABS 028417 PREDNISONE Inactive HYDROCODONE-ACETAMINOPHEN 5-325 MG ORAL TABS 1 tab two times a day HYDROCODONE-ACETAMINOPHEN 5-325 MG ORAL TABS 583334 HYDROCODONE-ACETAMINOPHEN Inactive ZITHROMAX Z-EARNEST 250 MG TABS 2 today and then 1 daily for 4 days ZITHROMAX Z-EARNEST 250 MG TABS 9499629 AZITHROMYCIN Inactive GUAIFENESIN-CODEINE 100-10 MG/5ML SYRP 5ml every 4 to 6 hours as needed for cough GUAIFENESIN-CODEINE 100-10 MG/5ML SYRP 809677 GUAIFENESIN-CODEINE Inactive HALOPERIDOL 10 MG ORAL TABS 1 tab q.d HALOPERIDOL 10 MG ORAL TABS [id number] HALOPERIDOL Inactive ASPIRIN 325 MG ORAL TABS 1 tab q.d ASPIRIN 325 MG ORAL TABS [id number] ASPIRIN Inactive FLUTICASONE PROPIONATE 50 MCG/ACT SUSP 2 sprays each nostril daily before bed. FLUTICASONE PROPIONATE 50 MCG/ACT SUSP [id number] FLUTICASONE PROPIONATE Inactive ZOFRAN 4 MG TABS 1 po q6hr PRN Nausea ZOFRAN 4 MG TABS [id number] ONDANSETRON HCL Inactive KEFLEX 500 MG CAP 1 po qid KEFLEX 500 MG CAP 129558 CEPHALEXIN Inactive ACETAMINOPHEN-CODEINE 120-12 MG/5ML SOLN 5 ml by mouth every 4-6 hours if needed for cough ACETAMINOPHEN-CODEINE 120-12 MG/5ML SOLN [id number] ACETAMINOPHEN-CODEINE Inactive PREDNISONE 20 MG TAB 1 tablet daily x 4 days PREDNISONE 20 MG TAB [id number] PREDNISONE Inactive TROPICAMIDE 0.5 % OPHTH SOLN 1 drop PRN eye spasms TROPICAMIDE 0.5 % OPHTH SOLN [id number] TROPICAMIDE Inactive LEVAQUIN 500 MG TABS 1 daily for infection LEVAQUIN 500 MG TABS [id number] LEVOFLOXACIN Inactive PREDNISONE 10 MG TABS 2 daily for 5 days then 1 daily for 5 days PREDNISONE 10 MG TABS 747259 PREDNISONE Inactive EQ NICOTINE 21 MG/24HR TRANS [...] for cough TESSALON PERLES 100 MG CAPS [id number] BENZONATATE Inactive AMITIZA 8 MCG ORAL CAPS [...] twice a day MUPIROCIN 2 % OINT 469395 MUPIROCIN Inactive BACTRIM DS 800-160 MG TAB Take one (1) tablet by mouth twice a day for 5 days BACTRIM DS 800-160 MG TAB [id number] TRIMETHOPRIM- SULFAMETHOXAZOLE Inactive LACTULOSE 10 GM/15ML ORAL SOLN 30mL oral BID for IBS-C LACTULOSE 10 GM/15ML ORAL SOLN 534247 LACTULOSE Inactive MIRALAX ORAL POWD 17GMS DAILY IN WATER MIRALAX ORAL POWD 310383 POLYETHYLENE GLYCOL 3350 Inactive CEFDINIR 300 MG CAPS by mouth twice a day CEFDINIR 300 MG CAPS 091798 CEFDINIR Inactive PREDNISONE 20 MG TAB 2 tabs daily for 3 days, 1 tab daily for 3 days, 1/2 tab daily for 2 days PREDNISONE 20 MG TAB 056619 PREDNISONE Inactive BACTRIM DS 800-160 MG TABS 1 po BID x 7 days BACTRIM DS 800-160 MG TABS 19820521 SULFAMETHOXAZOLE-TRIMETHOPRIM Inactive DIFLUCAN 150 MG TABS 1 pill every other day x 2 doses DIFLUCAN 150 MG TABS 405785 FLUCONAZOLE Inactive BACTRIM DS 800-160 MG TABS 1 pill by mouth twice daily BACTRIM DS 800-160 MG TABS 19820521 SULFAMETHOXAZOLE-TRIMETHOPRIM Inactive KEFLEX 500 MG CAP 1 po TID x 10 days KEFLEX 500 MG CAP 441837 CEPHALEXIN Inactive Advance Directives Directive Description Start [...] % 11.0-15.0 platelet count 443 THOUSAND/UL 10*3/mm3 893-630 3514/03/01 mean platelet volume 8.2 fL 7.5-12.5 leukocyte [...] % 11.0-15.0 platelet count 349 THOUSAND/UL 10*3/mm3 129-282 0821/04/12 mean platelet volume 8.4 fL 7.5-12.5 Lab Report: CBC W/DIFF, Comp. Metabolic Panel, HGBA1C, Magnesium - Chemistry sodium, serum 141 mmol/L 686-169 4350/07/24 carbon dioxide, venous blood 27.8 mmol/L 21.0-32.0 [...] 369 10^3/MM^3 10*3/mm3 142-424 Lab Report: Chlamydia/GC APTIMA/96383 - Lab chlamydia DNA probe NOT DETECTED NOT DETECTED Lab Report: Chlamydia/GC APTIMA/12766 - Microbiology Neisseria gonorrhoeae DNA probe NOT DETECTED NOT DETECTED Lab Report: Chlamydia/GC APTIMA/70170, Urinalysis, Complete, with Reflex ... - Lab chlamydia DNA probe NOT DETECTED NOT DETECTED Lab Report: Chlamydia/GC APTIMA/92401, Urinalysis, Complete, with Reflex ... - Microbiology Neisseria gonorrhoeae DNA probe NOT DETECTED NOT DETECTED Lab Report: Chlamydia/GC APTIMA/80493, Urinalysis, Complete, with Reflex ... - Urinalysis [...] 33.7 mmol/L 21.0-32.0 sodium, serum 140 mmol/L 359-574 6043/06/28 sodium, serum 140 mmol/L 135-577 5602/06/28 carbon dioxide, venous blood 23.8 mmol/L 21.0-32.0 [...] strip 1+ Negative bilirubin, urine 1+ Negative glucose, urine, semiquantitative Negative Negative urobilinogen, [...] >=1.030 1.000-1.030 pH, urine, semiquantitative 5.0 5.0-8.5 appearance, urine Clear Clear specific gravity, urine 1.025 1.000-1.030 pH, urine, semiquantitative 6.0 5.0-8.5 urine color Yellow Colorless;Lightyellow;Straw;Yellow appearance, urine Clear Clear specific gravity, urine <=1.005 1.000-1.030 pH, urine, semiquantitative 5.5 5.0-8.5 Office Visit: Possible UTI - Chemistry RBC, urine, dipstick negative protein, total urine random negative mg/dL Office Visit: Possible UTI - Urinalysis pH, urine, semiquantitative 5 specific gravity, urine 1.005 ketones, urine, by test strip negative bilirubin, urine negative glucose, urine, semiquantitative negative urinalysis, routine Clean Catch culture status Yes urine color yellow appearance, urine clear leukocyte esterase, urine, by dipstick negative nitrite, urine, semiquantitative negative urobilinogen, urine, semiquantitative (dipstick) negative Encounters Code Encounter Date Provider Facility CPT-75460 Level 3 Est. [facility]36[facility] 10:53[facility]17 [facility] Level 3 Est. Patient 11:08:35 CDT Suzan [facility] CPT-84242 Level 3 Est. Patient 15:55:20 CDT Suzan [facility] CPT-33865 Level 4 Est. Patient 10:49:34 CDT Suzan [facility] CPT-09047 Level 3 Est. Patient 10:00:25 [facility] Level 3 Est. Patient 10:29:30 [facility] Level 3 Est. Patient 11:04:38 CDT Renzo Thornton [facility] CPT-23524 Level 3 Est. Patient 11:15:58 LAVATORY ATTENDANT Renzo Thornton [facility] CPT-59654 Level 3 Est. Patient 15:28:23 LAVATORY ATTENDANT Suzan Boo [facility] CPT-83846 Level 4 Est. Patient 10:20:54 LAVATORY ATTENDANT Suzan Boo [facility] CPT-93343 Level 3 Est. Patient 11:47:37 LAVATORY ATTENDANT Ahmet Carbajal MD [facility] CPT-07506 Level 3 Est. Patient 10:40:11 LAVATORY ATTENDANT Ahmet Carbajal MD [facility] CPT-30791 Level 3 Est. Patient 15:07:06 LAVATORY ATTENDANT Neeraj Collins MD [facility] CPT-47026 Level 4 Est. Patient 14:45:00 LAVATORY ATTENDANT Ahmet Carbajal MD [facility] CPT-00737 Level 3 Est. Patient 13:59:59 CDT Luigi Martínez [facility] CPT-58568 Level 3 Est. Patient 18:18:53 CDT Neeraj Collins MD [facility] CPT-99926 Level 3 Est. Patient 15:50:44 CDT Vishal Hui MD [facility] CPT-07687 Level 3 Est. Patient 11:36:17 CDT Ahmet Carbajal MD [facility] CPT-09505 Level 3 Est. Patient 13:29:16 CDT Vishal Hui MD [facility] CPT-75803 Level 3 Est. Patient 14:27:52 CDT Neeraj Collins MD [facility] CPT-53415 Level 3 Est. Patient 08:56:03 CDT Luigi Martínez [facility] CPT-62350 Level 4 Est. Patient 12:11:48 CDT Fabiola Johnson [facility] CPT-96165 Level 3 New Patient 16:53:37 CDT Albert Caldera MD [facility] CPT-84521 Level 3 Est. Patient 11:25:49 CDT Renzo Thornton DO [facility] CPT-69754 Level 3 Est. Patient 15:22:01 CDT Ahmet Carbajal MD [facility] CPT-93289 Level 4 Est. Patient 09:00:51 LAVATORY ATTENDANT Vishal Hui MD [facility] CPT-36785 Level 3 Est. Patient 11:37:33 LAVATORY ATTENDANT Vishal Hui MD [facility] CPT-93802 Level 3 Est. Patient 08:41:09 LAVATORY ATTENDANT Vishal Hui MD [facility] CPT-43487 Level 4 Est. Patient 10:19:35 LAVATORY ATTENDANT Vishal Hui MD [facility] [place]-77682 Level 3 Est. Patient 13:35:45 CDT Vishal Hui MD [facility] CPT-79157 Level 4 Est. Patient 10:08:37 CDT Vishal Hui MD [facility] [place]-14274 Level 3 Est. Patient 11:22:10 CDT Vishal Hui MD [facility] CPT-49598 Level 3 Est. Patient 11:03:32 CDT Sahara Rodriguez MD PhD [facility]-99376 Level 3 Est. Patient 09:41:35 CDT Vishal Hui MD [facility]-39296 Level 3 Est. Patient 12:00:41 CDT Neeraj Collins MD [facility] [place]-00894 Level 3 Est. Patient 09:16:24 CDT Vishal Hui MD [facility] CPT-45196 Level 4 Est. Patient 13:59:09 CDT Neeraj Collins MD [facility] [place]-00871 Level 3 Est. Patient 15:19:43 CDT Renzo Thornton DO [facility] CPT-43365 Level 3 Est. Patient 18:10:26 CDT Sahara Rodriguez MD PhD [facility] [place]-84979 Level 3 Est. Patient 14:49:50 CDT Vishal Hui MD [facility] [place]-89375 Level 4 Est. Patient 18:41:46 CDT Neeraj Collins MD [facility] [place]-92046 Level 4 Est. Patient 09:18:38 LAVATORY ATTENDANT Vishal Hui MD [facility]-70393 Level 3 Est. Patient 14:43:55 LAVATORY ATTENDANT Vishal Hui MD [facility] [place]-13687 Level 3 Est. Patient 15:26:33 LAVATORY ATTENDANT Sahara Rodriguez MD PhD [facility] CPT-25001 Level 3 Est. Patient 10:32:14 LAVATORY ATTENDANT Vishal Hui MD [facility] CPT-20347 Level 3 Est. Patient 15:12:52 LAVATORY ATTENDANT Vishal Hui MD [facility] CPT-18849 Level 4 Est. Patient 09:19:27 CDT Vishal Hui MD [facility] CPT-24988 Level 3 Est. Patient 15:53:[address] [facility] CPT-15000 Level 3 Est. Patient 15:50:[address] [facility] CPT-37200 Level 3 Est. Patient 16:55:24 CDT Vishal Hui MD [facility] Procedures Code Procedure Name Date Entry Date Standard Description CPT-80507 UA Dip Auto (Floor Use Only) 11:36:47 CDT CPT-00248 Venipuncture Draw Fee 10:53:17 CDT CPT-02356 EKG Trac and Interp - XRAY USE ONLY 15:59:30 CDT 09/13 CPT-34594 Chest 1V Frontal - XRAY USE ONLY 15:59:30 CDT CPT-17127 Venipuncture Draw Fee 15:44:02 CDT CPT-60460 Venipuncture Draw Fee 08:41:12 CDT CPT-07460 Abd compl w upright - XRAY USE ONLY 10:27:59 CDT 06/28 CPT-47656 Smoking Cessation counseling 11:15:58 LAVATORY ATTENDANT CPT-G0439 [facility] Annual Wellness Exam 09:30:58 LAVATORY ATTENDANT CPT-26886 TSH - LAB USE ONLY 08:50:26 LAVATORY ATTENDANT CPT-13501 CBC - LAB USE ONLY 08:50:26 LAVATORY ATTENDANT CPT-93348 Venipuncture Draw Fee 08:50:26 LAVATORY ATTENDANT CPT-63293 Abx/Therapy Injection 17:34:30 LAVATORY ATTENDANT CPT-32804 Nexplanon Removal with Reinsertion 14:09:32 CDT CPT-J7307 Nexplanon (Implant) 14:09:32 CDT CPT-OV Office Visit 14:09:32 CDT CPT-56891 UA w micro - LAB USE ONLY 16:21:13 CDT CPT-35656 Wet Mount - LAB USE ONLY 16:21:13 CDT CPT-60407 First Vx - Ix admin for Medicare patients 14:37:47 CDT CPT-64312 Fluzone Preservative Free Intramuscular Suspension 14:37 :47 CDT CPT-71888 Abx/Therapy Injection 13:54:22 CDT CPT-27365 Abx/Therapy Injection 08:47:09 CDT CPT-96394 Abx/Therapy Injection 13:29:56 CDT CPT-52324 Abx/Therapy Injection 08:36:16 CDT CPT-68411 Wet [place] - LAB USE ONLY 17:44:58 CDT CPT-47520 UA w micro - LAB USE ONLY 17:44:58 CDT CPT-53825 CMP - LAB USE ONLY 17:44:58 CDT CPT-91578 Venipuncture Draw Fee 17:44:58 CDT CPT-87958 Cervical Min 4V - XRAY USE ONLY 09:01:40 CDT CPT-72461 Chest 2V Frontal and Lat - XRAY USE ONLY 11:06:31 CDT CPT-07141 EKG Trac and Interp - XRAY USE ONLY 11:31:43 CDT 08/26 CPT-J3420 Vitamin B12 1000mcg (Cyanocobalamin) 08:10:26 LAVATORY ATTENDANT 04/12 CPT-76523 Abx/Therapy Injection 08:10:26 LAVATORY ATTENDANT CPT-G0438 Initial Annual Wellness Exam 19:01:01 LAVATORY ATTENDANT CPT-J3420 Vitamin B12 1000mcg (Cyanocobalamin) 16:57:46 CDT 08/14 CPT-39401 Recombivax HB Injection Suspension 5 MCG/0.5ML 08:37:50 LAVATORY ATTENDANT CPT-23502 Immunization Single Admin 08:37:50 LAVATORY ATTENDANT CPT-J3420 Vitamin B12 1000mcg (Cyanocobalamin) 08:32:16 LAVATORY ATTENDANT 03/11 CPT-95155 Abx/Therapy Injection 08:32:16 LAVATORY ATTENDANT CPT-81978 Chest 2V Frontal and Lat 11:46:38 LAVATORY ATTENDANT CPT-53239 Venipuncture Draw Fee 09:12:45 LAVATORY ATTENDANT CPT-J3420 Vitamin B12 1000mcg (Cyanocobalamin) 08:50:15 LAVATORY ATTENDANT 02/08 CPT-87228 Abx/Therapy Injection 08:50:15 LAVATORY ATTENDANT CPT-Cryo Cryotherapy 10:19:35 LAVATORY ATTENDANT CPT-000 Give Appropriate Flu Vaccine 09:22:16 CDT CPT-J3420 Vitamin B12 1000mcg (Cyanocobalamin) 19:08:57 CDT 01/11 CPT-89576 Abx/Therapy Injection 19:08:57 CDT CPT-J3420 Vitamin B12 1000mcg (Cyanocobalamin) 08:19:08 CDT 12/11 CPT-70297 Abx/Therapy Injection 08:19:08 CDT CPT-J3420 Vitamin B12 1000mcg (Cyanocobalamin) 14:48:00 CDT 11/09 CPT-73232 Abx/Therapy Injection 14:47:59 CDT CPT-J3420 Vitamin B12 1000mcg (Cyanocobalamin) 08:34:04 CDT 10/09 CPT-66488 Abx/Therapy Injection 08:34:04 CDT CPT-J3420 Vitamin B12 1000mcg (Cyanocobalamin) 09:18:52 CDT 09/11 CPT-91516 Abx/Therapy Injection 09:18:52 CDT CPT-J3420 Vitamin B12 1000mcg (Cyanocobalamin) 08:35:44 CDT 09/04 CPT-73460 Abx/Therapy Injection 08:35:44 CDT CPT-75412 Immunization Single Admin 11:07:16 CDT CPT-88044 Hepatitis B adult IM 11:07:16 CDT CPT-J3420 Vitamin B12 1000mcg (Cyanocobalamin) 11:00:49 CDT 08/28 CPT-J1040 Depo Medrol 80 mg (Methyl Prednisolone Acetate) 11:00: 49 CDT CPT-70591 Abx/Therapy Injection 11:00:49 CDT CPT-J1040 Depo Medrol 80 mg (Methyl Prednisolone Acetate) 09:16: 23 CDT CPT-J3420 Vitamin B12 1000mcg (Cyanocobalamin) 08:27:05 CDT 08/20 CPT-99672 Abx/Therapy Injection 08:27:05 CDT CPT-12488 Recombivax HB Injection Suspension 5 MCG/0.5ML 10:00:41 CDT CPT-16723 Administration single or combination vaccine inc oral 10 :00:41 CDT CPT-93004 Sono transvag pelvis non OB uterus ovaries cervix 16:36: 57 CDT CPT-50298 LS spine comp w obliq 09:50:55 LAVATORY ATTENDANT CPT-66864 Abd compl w upright 09:50:55 LAVATORY ATTENDANT CPT-J1100 Decadron 4mg (Dexamethasone) 15:51:24 LAVATORY ATTENDANT CPT-J1030 Depo Medrol 40 mg (Methyl Prednisolone Acetate) 15:51: 24 LAVATORY ATTENDANT CPT-76423 Abx/Therapy Injection 15:51:24 LAVATORY ATTENDANT CPT-J1100 Decadron 4mg (Dexamethasone) 15:26:33 LAVATORY ATTENDANT CPT-J1030 Depo Medrol 40 mg (Methyl Prednisolone Acetate) 15:26: 33 LAVATORY ATTENDANT CPT-53350 Sono retroperitoneal complete kidneys and bladder 17:15: 30 CDT CPT-53488 Abd compl w upright 16:09:25 CDT CPT-J1100 Decadron 8mg (Dexamethasone) 17:07:57 CDT CPT-36899 Abx/Therapy Injection 17:07:57 CDT CPT-J1100 Decadron 8mg (Dexamethasone) 16:55:24 CDT CPT-61822 Chest 2V Frontal and Lat 16:32:44 CDT
--- OUTSIDE RECORDS SUMMARY | 2016-11-04 17:47 | XMS REPORT | Clinical Summary ---
Author Author Admin, QIE Organization [facility] Address Unknown Phone Unavailable Allergies, Adverse Reactions, [...] MD Carbuncle and furuncle of unspecified site Flank pain, right ICD-789.09 Inactive Vishal Hui MD Pneumonia, organism unspecified ICD-486 Inactive Vishal Hui MD Pelvic pain ICD-625.9 Inactive Vishal Hui MD Abscess, skin ICD-682.9 Inactive Vishal Hui MD Vaginitis ICD-616.10 Inactive Vishal Hui MD 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 Inactive Vishal Hui MD Fatigue ICD-780.79 Inactive Vishal Hui MD 2014 Vaginitis, candidal ICD-112.1 Inactive Vishal Hui MD Other abnormal blood chemistry ICD-790.6 Inactive Vishal Hui MD Abdominal pain ICD-789.00 Inactive Vishal Hui MD Cellulitis ICD-682.9 Inactive Vishal Hui MD Medication List Medication Instructions Start Date Stop Date Generic Name NDC Status Provider Patient Instruction BACTRIM DS 800-160 MG TABS 1 pill by mouth twice daily SULFAMETHOXAZOLE-TRIMETHOPRIM 01792542138 Active Sahara Rodriguez MD PhD Active DIFLUCAN 150 MG TAB 1 tablet by mouth daily FLUCONAZOLE 30824040881 No Longer Active Vishal Hui MD Active TIZANIDINE HCL 4 MG TABS 1 po q6hr PRN Muscle Spasm/Back Pain TIZANIDINE HCL 16803364031 Active Vishal Hui MD Active CLINDAMYCIN HCL 150 MG CAPS 1 four times a day CLINDAMYCIN HCL 52391239739 No Longer Active Neeraj Collins MD Active KEFLEX 500 MG ORAL CAPS 1 cap QID by mouth CEPHALEXIN 32242218139 No Longer Active Neeraj Collins MD Active DIFLUCAN 150 MG TABS 1 pill every other day x 2 doses FLUCONAZOLE 32087957772 No Longer Active Sahara Rodriguez MD PhD Active MELATONIN 3 MG CAPS 2 po q hs MELATONIN 07675429760 No Longer Active Sahara Rodriguez MD PhD Active MULTIVITAMINS CAPS Take one by mouth daily MULTIPLE VITAMIN 55280412163 No Longer Active Sahara Rodriguez MD PhD Active BACTRIM DS 800-160 MG TAB 1 tab by mouth twice daily TRIMETHOPRIM-SULFAMETHOXAZOLE 77524335875 No Longer Active Sahara Rodriguez MD PhD Active [facility] PROBIOTIC ORAL CHEW 2 daily po PROBIOTIC PRODUCT 02231536369 No Longer Active Sahara Rodriguez MD PhD Active IBUPROFEN 600 MG TAB 1 po TID PRN IBUPROFEN 20843371413 Active Luigi Martínez LETTER STAMPING MACHINE OPERATOR Active BACTRIM DS 800-160 MG TABS 1 po BID x 7 days SULFAMETHOXAZOLE-TRIMETHOPRIM 41305223005 No Longer Active Vishal Hui MD Active CHANTIX STARTING MONTH EARNEST 0.5 MG X 11 & 1 MG X 42 TABS 0.5mg daily for 3 days , then 0.5mg BID for 4 days, then 1mg BID VARENICLINE TARTRATE 79348500841 No Longer Active TAMARA Gray Active METOPROLOL TARTRATE 50 MG TAB 1 po bid METOPROLOL TARTRATE 16433491421 Active Vishal Hui MD Active TRAZODONE HCL 100 MG TAB take 1 at bedtime TRAZODONE HCL 28870543862 Active Vishal Hui MD Active AMLODIPINE BESYLATE 5 MG TABS 1 tablet by mouth daily AMLODIPINE BESYLATE 89085430004 Active Vishal Hui MD Active VERAPAMIL HCL CR 120 MG TAB CR 1 po bid VERAPAMIL HCL 74048391373 No Longer Active Vishal Hui MD Active METOPROLOL SUCCINATE 50 MG TB24 1 tablet by mouth daily METOPROLOL SUCCINATE 04078102320 No Longer Active Vishal Hui MD Active TRAMADOL HCL 50 MG TABS 1-2 po TID PRN Pain TRAMADOL HCL 76043924609 Active Vishal Hui MD Active SAPHRIS 5 MG SUBL 1 po bid ASENAPINE MALEATE 17456758938 Active Vishal Hui MD Active SAPHRIS 10 MG SUBL 1 tab po bid ASENAPINE MALEATE 74601409801 No Longer Active Vishal Hui MD Active LISINOPRIL 20 MG TABS 1 tab po qd LISINOPRIL 41797367261 No Longer Active Vishal Hui MD Active BENADRYL 25 MG CAP 2 po tid prn anxiety DIPHENHYDRAMINE HCL 35393922887 Active Vishal Hui MD Active LATUDA 80 MG TABS Take one by mouth daily LURASIDONE HCL 90287915936 Active Vishal Hui MD Active LATUDA 20 MG TABS Take one by mouth daily LURASIDONE HCL 58395671372 No Longer Active Vishal Hui MD Active TRAZODONE HCL 50 MG TABS 1/2 tab po qd prn for anxiety TRAZODONE HCL 07153226687 No Longer Active Vishal Hui MD Active PIROXICAM 20 MG CAPS 1 cap po qd PRN Pain PIROXICAM 62360254826 Active Vishal Hui MD Active OMEPRAZOLE 20 MG TBEC 1 po q a.m. 30min prior to first food intake OMEPRAZOLE 79477467251 Active Vishal Hui MD Active RANITIDINE HCL 150 MG CAPS 1 twice a day RANITIDINE HCL 96854600289 Active Vishal Hui MD Active PROZAC 20 MG CAP Take one by mouth daily FLUOXETINE HCL 03311118401 Active Vishal Hui MD Active LINZESS 290 MCG CAPS Take one by mouth daily LINACLOTIDE 84881854020 Active Vishal Hui MD Active SAPHRIS 5 MG SUBL 1 tab po qd ASENAPINE MALEATE 66099772640 No Longer Active Vishal Hui MD Active ZALEPLON 10 MG CAPS 1 cap po every other night ZALEPLON 26718820013 No Longer Active Vishal Hui MD Active LYRICA 50 MG CAPS 1 tab po TID PREGABALIN 55387480988 No Longer Active Vishal Hui MD Active LORATADINE 10 MG TABS 1 tab po qd LORATADINE 20697306394 No Longer Active Vishal Hui MD Active VERAPAMIL HCL ER 180 MG CR-TABS 1 tab po bid VERAPAMIL HCL 61406797751 No Longer Active Vishal Hui MD Active MIRALAX POWD 1 capfull once daily POLYETHYLENE GLYCOL 3350 87378619521 No Longer Active Vishal Hui MD Active PREDNISONE 20 MG TABS 1 tab po qd PREDNISONE 64636055696 No Longer Active Renzo Thornton DO Active LEVOFLOXACIN 500 MG TABS 1 tab po qd LEVOFLOXACIN 80040887028 No Longer Active Renzo Thornton DO Active BUSPIRONE HCL 15 MG TABS 1 tab po TID BUSPIRONE HCL 84826579337 No Longer Active Renzo Thornton DO Active BENZTROPINE MESYLATE 1 MG TABS 1 tab po qd BENZTROPINE MESYLATE 63177481427 No Longer Active Renzo Thornton DO Active ATENOLOL 25 MG TABS 1 tab po qd ATENOLOL 12452743749 No Longer Active Renzo Thornton DO Active ESCITALOPRAM OXALATE 20 MG TABS 1 tab po qd ESCITALOPRAM OXALATE 62547218862 No Longer Active Renzo Thornton DO Active ADVAIR DISKUS 250-50 MCG/DOSE AEPB 1 puff BID FLUTICASONE-SALMETEROL 15484511920 No Longer Active Renzo Thornton DO Active PREDNISONE 20 MG TAB 2 tabs daily for 3 days, 1 tab daily for 3 days, 1/2 tab daily for 2 days PREDNISONE 29628436358 No Longer Active Vishal Hui MD Active CEFDINIR 300 MG CAPS by mouth twice a day CEFDINIR 91994987780 No Longer Active Vishal Hui MD Active LANSOPRAZOLE 30 MG CPDR 1 cap po qd LANSOPRAZOLE 33090160212 No Longer Active Vishal Hui MD Active TOPAMAX 25 MG TABS 1 tab po bid TOPIRAMATE 49445444580 Active Vishal Hui MD Active MINIPRESS 2 MG CAPS 1 cap po at night PRAZOSIN HCL 36347191764 Active Vishal Hui MD Active BACLOFEN 20 MG TABS 1 tab po tid BACLOFEN 56947267588 No Longer Active Vishal Hui MD Active ADVAIR DISKUS 250-50 MCG/DOSE AEPB 1 puff BID ADVAIR DISKUS 250-50 MCG/DOSE AEPB FLUTICASONE-SALMETEROL Inactive ESCITALOPRAM OXALATE 20 MG TABS 1 tab po qd ESCITALOPRAM OXALATE 20 MG TABS 268387 ESCITALOPRAM OXALATE Inactive ATENOLOL 25 MG TABS 1 tab po qd ATENOLOL 25 MG TABS 048973 ATENOLOL Inactive BENZTROPINE MESYLATE 1 MG TABS 1 tab po qd BENZTROPINE MESYLATE 1 MG TABS 208420 BENZTROPINE MESYLATE Inactive BUSPIRONE HCL 15 MG TABS 1 tab po TID BUSPIRONE HCL 15 MG TABS 016840 BUSPIRONE HCL Inactive LEVOFLOXACIN 500 MG TABS 1 tab po qd LEVOFLOXACIN 500 MG TABS 069263 LEVOFLOXACIN Inactive PREDNISONE 20 MG TABS 1 tab po qd PREDNISONE 20 MG TABS 899467 PREDNISONE Inactive MIRALAX POWD 1 capfull once daily MIRALAX POWD 439934 POLYETHYLENE GLYCOL 3350 Inactive VERAPAMIL HCL ER 180 MG CR-TABS 1 tab po bid VERAPAMIL HCL ER 180 MG CR-TABS VERAPAMIL HCL Inactive LORATADINE 10 MG TABS 1 tab po qd LORATADINE 10 MG TABS 512697 LORATADINE Inactive LYRICA 50 MG CAPS 1 tab po TID LYRICA 50 MG CAPS PREGABALIN Inactive ZALEPLON 10 MG CAPS 1 cap po every other night ZALEPLON 10 MG CAPS 369395 ZALEPLON Inactive SAPHRIS 5 MG SUBL 1 tab po qd SAPHRIS 5 MG SUBL ASENAPINE MALEATE Inactive TRAZODONE HCL 50 MG TABS 1/2 tab po qd prn for anxiety TRAZODONE HCL 50 MG TABS 165921 TRAZODONE HCL Inactive LATUDA 20 MG TABS Take one by mouth daily LATUDA 20 MG TABS LURASIDONE HCL Inactive LISINOPRIL 20 MG TABS 1 tab po qd LISINOPRIL 20 MG TABS 841375 LISINOPRIL Inactive SAPHRIS 10 MG SUBL 1 [...] po q hs MELATONIN 3 MG CAPS 112000 MELATONIN Inactive KEFLEX 500 MG ORAL CAPS 1 cap QID by mouth KEFLEX 500 MG ORAL CAPS 164772 CEPHALEXIN Inactive CLINDAMYCIN HCL 150 MG CAPS 1 four times a day CLINDAMYCIN HCL 150 MG CAPS 499650 CLINDAMYCIN HCL Inactive DIFLUCAN 150 MG TAB 1 tablet by mouth daily DIFLUCAN 150 MG TAB 19751126 FLUCONAZOLE Inactive CEFDINIR 300 MG CAPS by mouth twice a day CEFDINIR 300 MG CAPS 965776 CEFDINIR Inactive PREDNISONE 20 MG TAB 2 tabs daily for 3 days, 1 tab daily for 3 days, 1/2 tab daily for 2 days PREDNISONE 20 MG TAB 625438 PREDNISONE Inactive BACTRIM DS 800-160 MG TABS [...] ... - Chemistry sodium, serum 140 mmol/L 882-331 9992/05/28 potassium, serum 4.2 mmol/L 3.5-5.2 chloride, serum [...] Panel - Chemistry sodium, serum 141 mmol/L 695-545 3112 potassium, serum 4.3 mmol/L 3.5-5.2 chloride, serum [...] Panel - Chemistry sodium, serum 139 mmol/L 025-511 4582/12/31 potassium, serum 4.8 mmol/L 3.5-5.2 chloride, serum 106 mmol/L 98-107 carbon dioxide, venous blood 24.3 mmol/L 21.0-32.0 blood glucose 90 mg/dL 65-110 urea nitrogen, blood 16 mg/dL 7-18 creatinine, serum 1.00 mg/dL 0.60-1.30 alanine aminotransferase (SGPT), serum 41 U/L 78 aspartate aminotransferase (SGOT), serum 17 U/L 15-37 calcium, serum 8.6 mg/dL 8.5-10.1 bilirubin, serum, total 0.30 mg/dL 0.00-1.00 cholesterol, serum 108 mg/dL 687-261 0510/12/31 triglyceride, serum, fasting 120 mg/dL 30-200 HDL cholesterol, serum 28 mg/dL 32-96 LDL cholesterol, serum 56 mg/dL 0-130 Lab Report: [id number] - Chemistry hemoglobin A1C, blood, as % of total hemoglobin 5.3 % 4.3-6.0 Lab Report: MICROALBUMIN - Chemistry albumin/creatinine ratio, urine < 30 mg/g mg/g{creat} 0-29 Lab Report: MICROALBUMIN - Lab microalbumin, urine 10 0-19 Lab Report: [place]IP W/MICRO, [place], [facility] [place] Chemistry protein, total urine random Negative mg/dL Negative human chorionic gonadotropin, urine, qualitative (urine test) Negative Negative RBC, urine, dipstick Negative Negative Lab Report: UADIP W/MICRO, AUTO, [facility] [place] - Urinalysis urobilinogen, urine, semiquantitative (dipstick) 0.2 Normal leukocyte esterase, urine, by dipstick Negative Negative nitrite, urine, semiquantitative Negative Negative glucose, urine, semiquantitative Negative Negative ketones, urine, by test strip Negative Negative bilirubin, urine Negative Negative urine color Yellow Colorless;Lightyellow;Straw;Yellow appearance, urine Clear Clear specific gravity, urine 1.025 1.000-1.030 pH, urine, semiquantitative 7.0 5.0-8.5 Lab Report: Varicella-Zoater Inga IgG,IgM/55349, HEP Be Antibody/556, RUB ... - Serology rubella antibody, serum, IgG 2.88 Encounters Code Encounter Date Provider Facility CPT-77899 Level 3 Est. Patient 11:22:10 CDT Vishal Hui MD [facility] CPT-13296 Level 3 Est. Patient 11:03:32 CDT Sahara Rodriguez MD PhD [facility] CPT-16152 Level 3 Est. Patient 09:41:35 CDT Vishal Hui MD [facility]-34897 Level 3 Est. Patient 12:00:41 CDT Neeraj Collins MD [facility] CPT-17716 Level 3 Est. Patient 09:16:24 CDT Vishal Hui MD [facility] CPT-89395 Level 4 Est. Patient 13:59:09 CDT Neeraj Collins MD [facility] CPT-61209 Level 3 Est. Patient 15:19:43 CDT Renzo Thornton [facility] CPT-67633 Level 3 Est. Patient 18:10:26 CDT Sahara Rodriguez MD [facility] CPT-78677 Level 3 Est. Patient 14:49:50 CDT Vishal Hui MD [facility] CPT-43409 Level 4 Est. Patient 18:41:46 CDT Neeraj Collins MD [facility] CPT-56447 Level 4 Est. Patient 09:18:38 SPECIAL EVENTS DIRECTOR Vishal Hui MD [facility] CPT-50489 Level 3 Est. Patient 14:43:55 SPECIAL EVENTS DIRECTOR Vishal Hui MD [facility] CPT-81631 Level 3 Est. Patient 15:26:33 SPECIAL EVENTS DIRECTOR Sahara Rodriguez MD [facility] CPT-69170 Level 3 Est. Patient 10:32:14 SPECIAL EVENTS DIRECTOR Vishal Hui MD [facility] CPT-96073 Level 3 Est. Patient 15:12:52 SPECIAL EVENTS DIRECTOR Vishal Hui MD [facility] CPT-94180 Level 4 Est. Patient 09:19:27 CDT Vishal Hui MD [facility] CPT-22103 Level 3 Est. Patient 15:53:00 CDT Renzo Thornton [facility] CPT-82981 Level 3 Est. Patient 15:50:30 CDT Renzo Thornton [facility] CPT-49954 Level 3 Est. Patient 16:55:24 CDT Vishal Hui MD [facility] Procedures Code Procedure Name Date Entry Date Standard Description CPT-J3420 Vitamin B12 1000mcg (Cyanocobalamin) 08:34:04 CDT 10/09 CPT-76146 Abx/Therapy Injection 08:34:04 CDT CPT-J3420 Vitamin B12 1000mcg (Cyanocobalamin) 09:18:52 CDT 09/11 CPT-54144 Abx/Therapy Injection 09:18:52 CDT CPT-J3420 Vitamin B12 1000mcg (Cyanocobalamin) 08:35:44 CDT 09/04 CPT-22262 Abx/Therapy Injection 08:35:44 CDT CPT-42661 Immunization Single Admin 11:07:16 CDT CPT-83636 Hepatitis B adult IM 11:07:16 CDT CPT-J3420 Vitamin B12 1000mcg (Cyanocobalamin) 11:00:49 CDT 08/28 CPT-J1040 Depo Medrol 80 mg (Methyl Prednisolone Acetate) 11:00: 49 CDT CPT-66105 Abx/Therapy Injection 11:00:49 CDT CPT-J1040 Depo Medrol 80 mg (Methyl Prednisolone Acetate) 09:16: 23 CDT CPT-J3420 Vitamin B12 1000mcg (Cyanocobalamin) 08:27:05 CDT 08/20 CPT-10678 Abx/Therapy Injection 08:27:05 CDT CPT-64877 Recombivax HB Injection Suspension 5 MCG/0.5ML 10:00:41 CDT CPT-20023 Administration single or combination vaccine inc oral 10 :00:41 CDT CPT-63335 Sono transvag pelvis non OB uterus ovaries cervix 16:36: 57 CDT CPT-67536 LS spine comp w obliq 09:50:55 SPECIAL EVENTS DIRECTOR CPT-58563 Abd compl w upright 09:50:55 SPECIAL EVENTS DIRECTOR CPT-J1100 Decadron 4mg (Dexamethasone) 15:51:24 SPECIAL EVENTS DIRECTOR CPT-J1030 Depo Medrol 40 mg (Methyl Prednisolone Acetate) 15:51: 24 SPECIAL EVENTS DIRECTOR CPT-96068 Abx/Therapy Injection 15:51:24 SPECIAL EVENTS DIRECTOR CPT-J1100 Decadron 4mg (Dexamethasone) 15:26:33 SPECIAL EVENTS DIRECTOR CPT-J1030 Depo Medrol 40 mg (Methyl Prednisolone Acetate) 15:26: 33 SPECIAL EVENTS DIRECTOR CPT-05345 Sono retroperitoneal complete kidneys and bladder 17:15: 30 CDT CPT-27963 Abd compl w upright 16:09:25 CDT CPT-J1100 Decadron 8mg (Dexamethasone) 17:07:57 CDT CPT-99190 Abx/Therapy Injection 17:07:57 CDT CPT-J1100 Decadron 8mg (Dexamethasone) 16:55:24 CDT CPT-53961 Chest 2V Frontal and Lat 16:32:44 CDT
--- OUTSIDE RECORDS SUMMARY | 2016-11-04 17:48 | XMS REPORT | Clinical Summary ---
Author Author Admin, E Organization [facility] Address Unknown Phone Unavailable Allergies, Adverse Reactions, [...] conditions classified elsewhere and of unspecified site Pneumonia, organism unspecified ICD-486 Inactive Vishal Hui MD Flank pain, right ICD-789.09 Inactive Vishal Hui MD Abdominal pain ICD-789.00 Inactive Vishal Hui MD Cellulitis ICD-682.9 Inactive Vishal Hui MD Pelvic pain ICD-625.9 Inactive Vishal Hui MD Abscess, skin ICD-682.9 Inactive Vishal Hui MD Medication List Medication Instructions Start Date Stop Date Generic Name NDC Status Provider Patient Instruction CLINDAMYCIN HCL 150 MG CAPS 1 four times a day CLINDAMYCIN HCL 41093246103 Active Renzo Thornton DO Active KEFLEX 500 MG ORAL CAPS 1 cap QID by mouth CEPHALEXIN 80023492252 Active Renzo Thornton DO Active DIFLUCAN 150 MG TABS 1 pill every other day x 2 doses FLUCONAZOLE 76952163361 No Longer Active Sahara Rodriguez MD PhD Active MELATONIN 3 MG CAPS 2 po q hs MELATONIN 05742288519 No Longer Active Saahra Rodriguez MD PhD Active MULTIVITAMINS CAPS Take one by mouth daily MULTIPLE VITAMIN 06730766451 No Longer Active Sahara Rodriguez MD PhD Active BACTRIM DS 800-160 MG TAB 1 tab by mouth twice daily TRIMETHOPRIM-SULFAMETHOXAZOLE 09701047184 No Longer Active Sahara Rodriguez MD PhD Active [facility] PROBIOTIC ORAL CHEW 2 daily po PROBIOTIC PRODUCT 98668867096 No Longer Active Sahara Rodriguez MD PhD Active IBUPROFEN 600 MG TAB 1 po TID PRN IBUPROFEN 97579161363 Active Luigi Martínez PROGRAM PROPOSALS COORDINATOR Active BACTRIM DS 800-160 MG TABS 1 po BID x 7 days SULFAMETHOXAZOLE-TRIMETHOPRIM 25072309750 No Longer Active Vishal Hui MD Active CHANTIX STARTING MONTH EARNEST 0.5 MG X 11 & 1 MG X 42 TABS 0.5mg daily for 3 days , then 0.5mg BID for 4 days, then 1mg BID VARENICLINE TARTRATE 43688816133 No Longer Active TAMARA Gray Active METOPROLOL TARTRATE 50 MG TAB 1 po bid METOPROLOL TARTRATE 04644254226 Active Vishal Hui MD Active TRAZODONE HCL 100 MG TAB take 1 at bedtime TRAZODONE HCL 84335976941 Active Vishal Hui MD Active AMLODIPINE BESYLATE 5 MG TABS 1 tablet by mouth daily AMLODIPINE BESYLATE 36783220499 Active Vishal Hui MD Active VERAPAMIL HCL CR 120 MG TAB CR 1 po bid VERAPAMIL HCL 87264031999 No Longer Active Vishal Hui MD Active METOPROLOL SUCCINATE 50 MG TB24 1 tablet by mouth daily METOPROLOL SUCCINATE 67161482194 No Longer Active Vishal Hui MD Active TRAMADOL HCL 50 MG TABS 1-2 po TID PRN Pain TRAMADOL HCL 85236451411 Active Vishal Hui MD Active SAPHRIS 5 MG SUBL 1 po bid ASENAPINE MALEATE 84527169452 Active Vishal Hui MD Active SAPHRIS 10 MG SUBL 1 tab po bid ASENAPINE MALEATE 75678282087 No Longer Active Vishal Hui MD Active LISINOPRIL 20 MG TABS 1 tab po qd LISINOPRIL 58185307264 No Longer Active Vishal Hui MD Active BENADRYL 25 MG CAP 2 po tid prn anxiety DIPHENHYDRAMINE HCL 10901363813 Active Vishal Hui MD Active LATUDA 80 MG TABS Take one by mouth daily LURASIDONE HCL 66019895572 Active Vishal Hui MD Active LATUDA 20 MG TABS Take one by mouth daily LURASIDONE HCL 72324218621 No Longer Active Vishal Hui MD Active TRAZODONE HCL 50 MG TABS 1/2 tab po qd prn for anxiety TRAZODONE HCL 32121346193 No Longer Active Vishal Hui MD Active PIROXICAM 20 MG CAPS 1 cap po qd PRN Pain PIROXICAM 55084485756 Active Vishal Hui MD Active OMEPRAZOLE 20 MG TBEC 1 po q a.m. 30min prior to first food intake OMEPRAZOLE 68393179421 Active Vishal Hui MD Active RANITIDINE HCL 150 MG CAPS 1 twice a day RANITIDINE HCL 24996109098 Active Vishal Hui MD Active PROZAC 20 MG CAP Take one by mouth daily FLUOXETINE HCL 93557696270 Active Vishal Hui MD Active LINZESS 290 MCG CAPS Take one by mouth daily LINACLOTIDE 15795168226 Active Vishal Hui MD Active SAPHRIS 5 MG SUBL 1 tab po qd ASENAPINE MALEATE 94038929435 No Longer Active Vishal Hui MD Active ZALEPLON 10 MG CAPS 1 cap po every other night ZALEPLON 46991034550 No Longer Active Vishal Hui MD Active LYRICA 50 MG CAPS 1 tab po TID PREGABALIN 50968756334 No Longer Active Vishal Hui MD Active LORATADINE 10 MG TABS 1 tab po qd LORATADINE 81316805310 No Longer Active Vishal Hui MD Active VERAPAMIL HCL ER 180 MG CR-TABS 1 tab po bid VERAPAMIL HCL 13109442818 No Longer Active Vishal Hui MD Active MIRALAX POWD 1 capfull once daily POLYETHYLENE GLYCOL 3350 36617944481 No Longer Active Vishal Hui MD Active PREDNISONE 20 MG TABS 1 tab po qd PREDNISONE 57829662546 No Longer Active Renzo Thornton DO Active LEVOFLOXACIN 500 MG TABS 1 tab po qd LEVOFLOXACIN 54478922210 No Longer Active Renzo Thornton DO Active BUSPIRONE HCL 15 MG TABS 1 tab po TID BUSPIRONE HCL 04440254000 No Longer Active Renzo Thornton DO Active BENZTROPINE MESYLATE 1 MG TABS 1 tab po qd BENZTROPINE MESYLATE 07122945216 No Longer Active Renzo Thornton DO Active ATENOLOL 25 MG TABS 1 tab po qd ATENOLOL 51685643472 No Longer Active Renzo Thornton DO Active ESCITALOPRAM OXALATE 20 MG TABS 1 tab po qd ESCITALOPRAM OXALATE 30292187089 No Longer Active Renzo Thornton DO Active ADVAIR DISKUS 250-50 MCG/DOSE AEPB 1 puff BID FLUTICASONE-SALMETEROL 11059888520 No Longer Active Renzo Thornton DO Active PREDNISONE 20 MG TAB 2 tabs daily for 3 days, 1 tab daily for 3 days, 1/2 tab daily for 2 days PREDNISONE 37537765250 No Longer Active Vishal Hui MD Active CEFDINIR 300 MG CAPS by mouth twice a day CEFDINIR 04243162023 No Longer Active Vishal Hui MD Active LANSOPRAZOLE 30 MG CPDR 1 cap po qd LANSOPRAZOLE 12411496932 No Longer Active Vishal Hui MD Active TOPAMAX 25 MG TABS 1 tab po bid TOPIRAMATE 10154253064 Active Vishal Hui MD Active MINIPRESS 2 MG CAPS 1 cap po at night PRAZOSIN HCL 85147051892 Active Vishal Hui MD Active BACLOFEN 20 MG TABS 1 tab po tid BACLOFEN 93680251677 Active Vishal Hui MD Active ADVAIR DISKUS 250-50 MCG/DOSE AEPB 1 puff BID ADVAIR DISKUS 250-50 MCG/DOSE AEPB FLUTICASONE-SALMETEROL Inactive ESCITALOPRAM OXALATE 20 MG TABS 1 tab po qd ESCITALOPRAM OXALATE 20 MG TABS 374792 ESCITALOPRAM OXALATE Inactive ATENOLOL 25 MG TABS 1 tab po qd ATENOLOL 25 MG TABS 685220 ATENOLOL Inactive BENZTROPINE MESYLATE 1 MG TABS 1 tab po qd BENZTROPINE MESYLATE 1 MG TABS 980401 BENZTROPINE MESYLATE Inactive BUSPIRONE HCL 15 MG TABS 1 tab po TID BUSPIRONE HCL 15 MG TABS 241158 BUSPIRONE HCL Inactive LEVOFLOXACIN 500 MG TABS 1 tab po qd LEVOFLOXACIN 500 MG TABS 571494 LEVOFLOXACIN Inactive PREDNISONE 20 MG TABS 1 tab po qd PREDNISONE 20 MG TABS 673282 PREDNISONE Inactive MIRALAX POWD 1 capfull once daily MIRALAX POWD 024166 POLYETHYLENE GLYCOL 3350 Inactive VERAPAMIL HCL ER 180 MG CR-TABS 1 tab po bid VERAPAMIL HCL ER 180 MG CR-TABS VERAPAMIL HCL Inactive LORATADINE 10 MG TABS 1 tab po qd LORATADINE 10 MG TABS 406276 LORATADINE Inactive LYRICA 50 MG CAPS 1 tab po TID LYRICA 50 MG CAPS PREGABALIN Inactive ZALEPLON 10 MG CAPS 1 cap po every other night ZALEPLON 10 MG CAPS 104740 ZALEPLON Inactive SAPHRIS 5 MG SUBL 1 tab po qd SAPHRIS 5 MG SUBL ASENAPINE MALEATE Inactive TRAZODONE HCL 50 MG TABS 1/2 tab po qd prn for anxiety TRAZODONE HCL 50 MG TABS 490020 TRAZODONE HCL Inactive LATUDA 20 MG TABS Take one by mouth daily LATUDA 20 MG TABS LURASIDONE HCL Inactive LISINOPRIL 20 MG TABS 1 tab po qd LISINOPRIL 20 MG TABS 424867 LISINOPRIL Inactive SAPHRIS 10 MG SUBL 1 [...] po q hs MELATONIN 3 MG CAPS 532057 MELATONIN Inactive CEFDINIR 300 MG CAPS by mouth twice a day CEFDINIR 300 MG CAPS 012798 CEFDINIR Inactive PREDNISONE 20 MG TAB 2 tabs daily for 3 days, 1 tab daily for 3 days, 1/2 tab daily for 2 days PREDNISONE 20 MG TAB 415250 PREDNISONE Inactive BACTRIM DS 800-160 MG TABS 1 po BID x 7 days BACTRIM DS 800-160 MG TABS SULFAMETHOXAZOLE-TRIMETHOPRIM Inactive DIFLUCAN 150 MG TABS 1 pill every other day x 2 doses DIFLUCAN 150 MG TABS 540203 FLUCONAZOLE Inactive Vital Signs Date Name Value [...] Panel - Chemistry sodium, serum 141 mmol/L 569-280 2489 potassium, serum 4.3 mmol/L 3.5-5.2 chloride, serum [...] Panel - Chemistry sodium, serum 139 mmol/L 705-131 6655/12/31 potassium, serum 4.8 mmol/L 3.5-5.2 chloride, serum 106 mmol/L 98-107 carbon dioxide, venous blood 24.3 mmol/L 21.0-32.0 blood glucose 90 mg/dL 65-110 urea nitrogen, blood 16 mg/dL 7-18 creatinine, serum 1.00 mg/dL 0.60-1.30 alanine aminotransferase (SGPT), serum 41 U/L 12-78 aspartate aminotransferase (SGOT), serum 17 U/L 15-37 calcium, serum 8.6 mg/dL 8.5-10.1 bilirubin, serum, total 0.30 mg/dL 0.00-1.00 cholesterol, serum 108 mg/dL 059-151 9246/12/31 triglyceride, serum, fasting 120 mg/dL 30-200 HDL cholesterol, serum 28 mg/dL 32-96 LDL cholesterol, serum 56 mg/dL 0-130 Lab Report: MICROALBUMIN - Chemistry albumin/creatinine ratio, urine < 30 mg/g mg/g{creat} 0-29 Lab Report: MICROALBUMIN - Lab microalbumin, urine 10 0-19 Lab Report: UADIP W/MICRO, AUTO, [facility] - Chemistry protein, total urine random Negative [...] semiquantitative 7.0 5.0-8.5 Lab Report: Varicella-Zoater Inga IgG,IgM/36322, HEP Be Antibody/556, RUB ... - Serology rubella antibody, serum, IgG 2.88 Encounters Code Encounter Date Provider Facility [id number] Level 3 Est. Patient 15:19:43 CDT Renzo Thornton [facility]-00020 Level 3 Est. Patient 18:10:26 CDT Sahara Rodriguez MD [place] [id number] Level 3 Est. Patient 14:49:50 CDT Vishal Hui MD [facility] Level 4 Est. Patient 18:41:46 CDT Neeraj Collins MD [facility] Level 4 Est. Patient 09:18:38 LINOTYPE MACHINIST Vishal Hui MD [facility]-73288 Level 3 Est. Patient 14:43:55 LINOTYPE MACHINIST Vishal Hui MD [facility]-32829 Level 3 Est. Patient 15:26:33 LINOTYPE MACHINIST Sahara Rodriguez MD [place] [address]07613 Level 3 Est. Patient 10:32:14 LINOTYPE MACHINIST Vishal Hui MD [facility]-55746 Level 3 Est. Patient 15:12:52 LINOTYPE MACHINIST Vishal Hui MD [facility]81 Level 4 Est. Patient 09:19:27 CDT Vishal Hui MD [facility]-36129 Level 3 Est. Patient 15:53:00 CDT Renzo Thornton [facility]258 Level 3 Est. Patient 15:50:30 CDT Renzo Thornton [facility] Level 3 Est. Patient 16:55:24 CDT Vishal Hui MD [facility] Procedures Code Procedure Name Date Entry Date Standard Description CPT-98446 Recombivax HB Injection Suspension 5 MCG/0.5ML 10:00:41 CDT CPT-06450 Administration single or combination vaccine inc oral 10 :00:41 CDT CPT-20023 Sono transvag pelvis non OB uterus ovaries cervix 16:36: 57 CDT CPT-93720 LS spine comp w obliq 09:50:55 LINOTYPE MACHINIST CPT-54461 Abd compl w upright 09:50:55 LINOTYPE MACHINIST CPT-J1100 Decadron 4mg (Dexamethasone) 15:51:24 LINOTYPE MACHINIST CPT-J1030 Depo Medrol 40 mg (Methyl Prednisolone Acetate) 15:51: 24 LINOTYPE MACHINIST CPT-70541 Abx/Therapy Injection 15:51:24 LINOTYPE MACHINIST CPT-J1100 Decadron 4mg (Dexamethasone) 15:26:33 LINOTYPE MACHINIST CPT-J1030 Depo Medrol 40 mg (Methyl Prednisolone Acetate) 15:26: 33 LINOTYPE MACHINIST CPT-62396 Sono retroperitoneal complete kidneys and bladder 17:15: 30 CDT CPT-00475 Abd compl w upright 16:09:25 CDT CPT-J1100 Decadron 8mg (Dexamethasone) 17:07:57 CDT CPT-92048 Abx/Therapy Injection 17:07:57 CDT CPT-J1100 Decadron 8mg (Dexamethasone) 16:55:24 CDT CPT-02215 Chest 2V Frontal and Lat 16:32:44 CDT
--- OUTSIDE RECORDS SUMMARY | 2016-11-04 17:48 | XMS REPORT ---
Author Author [email or web address] Medical Staff Organization [facility] Address [address] [employer] [place], [place] [address] Phone [phone] Summary purpose TRANSITION OF CARE AUTO GENERATION [...]
--- OUTSIDE RECORDS SUMMARY | 2016-11-04 17:50 | XMS REPORT | Clinical Summary ---
Author Author Admin, [employer] Organization [facility] Address Unknown Phone Unavailable Allergies, Adverse [...] Shortness of breath 786.05 Active Fabiola Johnson GRAPHICS EDIT TECHNICIAN Shortness of breath Nocturnal hypoxia 799.02 Active Fabiola Johnson GRAPHICS EDIT TECHNICIAN Hypoxemia Neck pain 723.1 Active Luigi Martínez GRAPHICS EDIT TECHNICIAN Cervicalgia Anxiety Disorder ICD-300.00 Inactive Vishal Hui [...] each nostril daily before bed. FLUTICASONE PROPIONATE 45107597186 Active Fabiola Johnson APRN Active VERAPAMIL HCL ER 120 MG ORAL CR-TABS 1 tab po daily for blood pressure 09/27 VERAPAMIL HCL 27319440949 Active Fabiola Johnson APRN Active ADZENYS XR-ODT 6.3 MG ORAL TBED 1 tab po daily for ADHD AMPHETAMINE 77318789439 Active Fabiola Johnson APRN Active BENADRYL 25 MG CAP 4 po at bedtime for insomnia DIPHENHYDRAMINE HCL 42807259804 Active Fabiola Johnson APRN Active KLONOPIN 1 MG ORAL TABS 1 tab po TID CLONAZEPAM 36436065661 Active Fabioal Johnson APRN Active VALIUM 5 MG TAB Take 1-2 tablets daily DIAZEPAM 64857336105 No Longer Active Fabiola Johnson APRN Active METOPROLOL TARTRATE 25 MG ORAL TABS 1/2 tablet twice daily for heart rate and blood pressure METOPROLOL TARTRATE 93441063837 No Longer Active Fabiola Johnson APRN Active MIRALAX ORAL POWD 17GMS DAILY IN WATER POLYETHYLENE GLYCOL 3350 87000720167 Active Vishal Hui MD Active VIIBRYD 10 MG ORAL TABS Take 1 tablet once a day VILAZODONE HCL 88445789508 Active Ahmet Carbajal MD Active DICLOFENAC POTASSIUM TABS Take 1 tablet twice a day (pt. is not sure of the dose.) DICLOFENAC POTASSIUM TABS 22366417471 Active Ahmet Carbajal MD Active MIRALAX PACK 1 po qd PRN Constipation POLYETHYLENE GLYCOL 3350 86450031489 No Longer Active Ahmet Carbajal MD Active MINIPRESS 2 MG CAPS 4 cap po at night PRAZOSIN HCL 11608563827 No Longer Active Ahmet Carbajal MD Active PIROXICAM 20 MG CAPS 1 cap po qd PRN Pain PIROXICAM 35477511667 No Longer Active Ahmet Carbajal MD Active TRAMADOL HCL 50 MG TABS 1-2 po TID PRN Pain TRAMADOL HCL 03969116710 No Longer Active Ahmet Carbajal MD Active METOPROLOL TARTRATE 50 MG TAB 1 po bid METOPROLOL TARTRATE 59602007338 No Longer Active Ahmet Carbajal MD Active ABILIFY 15 MG ORAL TABS 1 tab daily ARIPIPRAZOLE 65687216345 No Longer Active Ahmet Carbajal MD Active PROZAC 20 MG ORAL CAPS 1 tab daily FLUOXETINE HCL 95741693570 No Longer Active Ahmet Carbajal MD Active AMBIEN 5 MG ORAL TABS 1 tab at bedtime ZOLPIDEM TARTRATE 05017896659 No Longer Active Ahmet Carbajal MD Active PREDNISONE 20 MG TAB 2 tabs daily for 4 days, 1 tab daily for 4 days, 1/2 tab daily for 4 days PREDNISONE 66139910094 No Longer Active Ahmet Carbajal MD Active KEFLEX 500 MG CAP 1 po TID x 10 days CEPHALEXIN 72362406192 No Longer Active Vishal Hui MD Active ABILIFY MAINTENA 400 MG IM SUSR Injection once per month ARIPIPRAZOLE 44538014639 Active Juliet Kimbrough APRN Active IMITREX 50 MG ORAL TABS 1/2 tab every 6 hours prn SUMATRIPTAN SUCCINATE 62882095452 Active Pacolljanee Martínez APRN Active TOPAMAX 50 MG ORAL TABS 1 tab twice daily TOPIRAMATE 05506569260 Active Vishal Hui MD Active SAPHRIS 5 MG SUBL 1 po bid ASENAPINE MALEATE 16783334618 No Longer Active Luigi Martínez APRN Active LATUDA 80 MG TABS Take one by mouth daily LURASIDONE HCL 94784542960 No Longer Active Luigi Martínez APRN Active AMLODIPINE BESYLATE 5 MG TABS 1 tablet by mouth daily AMLODIPINE BESYLATE 88592142946 No Longer Active Luigi Martínez APRN Active AMITRIPTYLINE HCL 100 MG TAB one at hs AMITRIPTYLINE HCL 22005359078 No Longer Active Vishal Hui MD Active TRAZODONE HCL 100 MG TAB take 1 at bedtime TRAZODONE HCL 16779085889 No Longer Active Vishal Hui MD Active VYVANSE 40 MG CAPS 1 daily, LISDEXAMFETAMINE DIMESYLATE 52227739118 No Longer Active Vishal Hui MD Active IBUPROFEN 600 MG TAB 1 po TID PRN IBUPROFEN 33465065402 No Longer Active Vishal Hui MD Active PROZAC 20 MG CAP Take one by mouth daily FLUOXETINE HCL 02330138023 No Longer Active Vishal Hui MD Active ZOFRAN 4 MG TABS 1 po q6hr PRN Nausea ONDANSETRON HCL Active Vishal Hui MD Active BACTRIM DS 800-160 MG TABS 1 pill by mouth twice daily SULFAMETHOXAZOLE-TRIMETHOPRIM 33882191305 No Longer Active Sahara Rodriguez MD PhD Active DIFLUCAN 150 MG TAB 1 tablet by mouth daily FLUCONAZOLE 27064594352 No Longer Active Vishal Hui MD Active TIZANIDINE HCL 4 MG TABS 1 po q6hr PRN Muscle Spasm/Back Pain TIZANIDINE HCL 82339639609 Active Jioral Martínez APRN Active CLINDAMYCIN HCL 150 MG CAPS 1 four times a day CLINDAMYCIN HCL 32719915729 No Longer Active Neeraj Collins MD Active KEFLEX 500 MG ORAL CAPS 1 cap QID by mouth CEPHALEXIN 69992282377 No Longer Active Neeraj Collins MD Active DIFLUCAN 150 MG TABS 1 pill every other day x 2 doses FLUCONAZOLE 52344368191 No Longer Active Sahara Rodriguez MD PhD Active MELATONIN 3 MG CAPS 2 po q hs MELATONIN 61421573607 No Longer Active Sahara Rodriguez MD PhD Active MULTIVITAMINS CAPS Take one by mouth daily MULTIPLE VITAMIN 46948107083 No Longer Active Sahara Rodriguez MD PhD Active BACTRIM DS 800-160 MG TAB 1 tab by mouth twice daily TRIMETHOPRIM-SULFAMETHOXAZOLE 17951258142 No Longer Active Sahara Rodriguez MD PhD Active [facility] PROBIOTIC ORAL CHEW 2 daily po PROBIOTIC PRODUCT 40890404568 No Longer Active Sahara Rodriguez MD PhD Active BACTRIM DS 800-160 MG TABS 1 po BID x 7 days SULFAMETHOXAZOLE-TRIMETHOPRIM 11063805376 No Longer Active Vishal Hui MD Active CHANTIX STARTING MONTH EARNEST 0.5 MG X 11 & 1 MG X 42 TABS 0.5mg daily for 3 days , then 0.5mg BID for 4 days, then 1mg BID VARENICLINE TARTRATE 12147955699 No Longer Active TAMARA Gray Active VERAPAMIL HCL CR 120 MG TAB CR 1 po bid VERAPAMIL HCL 94380191523 No Longer Active Vishal Hui MD Active METOPROLOL SUCCINATE 50 MG TB24 1 tablet by mouth daily METOPROLOL SUCCINATE 61820439392 No Longer Active Vishal Hui MD Active SAPHRIS 10 MG SUBL 1 tab po bid ASENAPINE MALEATE 55139166199 No Longer Active Vishal Hui MD Active LISINOPRIL 20 MG TABS 1 tab po qd LISINOPRIL 95504563453 No Longer Active Vishal Hui MD Active LATUDA 20 MG TABS Take one by mouth daily LURASIDONE HCL 33011684749 No Longer Active Vishal Hui MD Active TRAZODONE HCL 50 MG TABS 1/2 tab po qd prn for anxiety TRAZODONE HCL 92238296736 No Longer Active Vishal Hui MD Active OMEPRAZOLE 20 MG TBEC 1 po q a.m. 30min prior to first food intake OMEPRAZOLE 41966914009 Active Vishal Hui MD Active RANITIDINE HCL 150 MG CAPS 1 twice a day RANITIDINE HCL 42546381760 Active Luigi Swensonlebron NORIEGA Active LINZESS 290 MCG CAPS Take one by mouth daily LINACLOTIDE 39705595700 No Longer Active Vishal Hui MD Active SAPHRIS 5 MG SUBL 1 tab po qd ASENAPINE MALEATE 02389877019 No Longer Active Vishal Hui MD Active ZALEPLON 10 MG CAPS 1 cap po every other night ZALEPLON 79613909657 No Longer Active Vishal Hui MD Active LYRICA 50 MG CAPS 1 tab po TID PREGABALIN 06861284276 No Longer Active Vishal Hui MD Active LORATADINE 10 MG TABS 1 tab po qd LORATADINE 47838811579 No Longer Active Vishal Hui MD Active VERAPAMIL HCL ER 180 MG CR-TABS 1 tab po bid VERAPAMIL HCL 92908880473 No Longer Active Vishal Hui MD Active MIRALAX POWD 1 capfull once daily POLYETHYLENE GLYCOL 3350 13826221765 No Longer Active Vishal Hui MD Active PREDNISONE 20 MG TABS 1 tab po qd PREDNISONE 20744104238 No Longer Active Renzo Thornton DO Active LEVOFLOXACIN 500 MG TABS 1 tab po qd LEVOFLOXACIN 16573807358 No Longer Active Renzo Thornton DO Active BUSPIRONE HCL 15 MG TABS 1 tab po TID BUSPIRONE HCL 12993437566 No Longer Active Renzo Thornton DO Active BENZTROPINE MESYLATE 1 MG TABS 1 tab po qd BENZTROPINE MESYLATE 61044731764 No Longer Active Renzo Thornton DO Active ATENOLOL 25 MG TABS 1 tab po qd ATENOLOL 92758009102 No Longer Active Renzo Thornton DO Active ESCITALOPRAM OXALATE 20 MG TABS 1 tab po qd ESCITALOPRAM OXALATE 60017388123 No Longer Active Renzo Thornton DO Active ADVAIR DISKUS 250-50 MCG/DOSE AEPB 1 puff BID FLUTICASONE-SALMETEROL 91708857626 No Longer Active Renzo Thornton DO Active PREDNISONE 20 MG TAB 2 tabs daily for 3 days, 1 tab daily for 3 days, 1/2 tab daily for 2 days PREDNISONE 23289395271 No Longer Active Vishal Hui MD Active CEFDINIR 300 MG CAPS by mouth twice a day CEFDINIR 11225320564 No Longer Active Vishal Hui MD Active LANSOPRAZOLE 30 MG CPDR 1 cap po qd LANSOPRAZOLE 16846124077 No Longer Active Vishal Hui MD Active BACLOFEN 20 MG TABS 1 tab po tid BACLOFEN 48865063197 No Longer Active Vishal Hui MD Active ADVAIR DISKUS 250-50 MCG/DOSE AEPB 1 puff BID ADVAIR DISKUS 250-50 MCG/DOSE AEPB FLUTICASONE-SALMETEROL Inactive ESCITALOPRAM OXALATE 20 MG TABS 1 tab po qd ESCITALOPRAM OXALATE 20 MG TABS 423479 ESCITALOPRAM OXALATE Inactive ATENOLOL 25 MG TABS 1 tab po qd ATENOLOL 25 MG TABS 137174 ATENOLOL Inactive BENZTROPINE MESYLATE 1 MG TABS 1 tab po qd BENZTROPINE MESYLATE 1 MG TABS 147515 BENZTROPINE MESYLATE Inactive BUSPIRONE HCL 15 MG TABS 1 tab po TID BUSPIRONE HCL 15 MG TABS 534264 BUSPIRONE HCL Inactive LEVOFLOXACIN 500 MG TABS 1 tab po qd LEVOFLOXACIN 500 MG TABS 043979 LEVOFLOXACIN Inactive PREDNISONE 20 MG TABS 1 tab po qd PREDNISONE 20 MG TABS 945681 PREDNISONE Inactive MIRALAX POWD 1 capfull once daily MIRALAX POWD 885729 POLYETHYLENE GLYCOL 3350 Inactive VERAPAMIL HCL ER 180 MG CR-TABS 1 tab po bid VERAPAMIL HCL ER 180 MG CR-TABS VERAPAMIL HCL Inactive LORATADINE 10 MG TABS 1 tab po qd LORATADINE 10 MG TABS 575376 LORATADINE Inactive LYRICA 50 MG CAPS 1 tab po TID LYRICA 50 MG CAPS PREGABALIN Inactive ZALEPLON 10 MG CAPS 1 cap po every other night ZALEPLON 10 MG CAPS 099497 ZALEPLON Inactive SAPHRIS 5 MG SUBL 1 tab po qd SAPHRIS 5 MG SUBL ASENAPINE MALEATE Inactive TRAZODONE HCL 50 MG TABS 1/2 tab po qd prn for anxiety TRAZODONE HCL 50 MG TABS 347374 TRAZODONE HCL Inactive LATUDA 20 MG TABS Take one by mouth daily LATUDA 20 MG TABS LURASIDONE HCL Inactive LISINOPRIL 20 MG TABS 1 tab po qd LISINOPRIL 20 MG TABS 656759 LISINOPRIL Inactive SAPHRIS 10 MG SUBL 1 [...] twice daily BACTRIM DS 800-160 MG TAB 462890 TRIMETHOPRIM-SULFAMETHOXAZOLE Inactive MULTIVITAMINS CAPS Take one by mouth daily MULTIVITAMINS CAPS MULTIPLE VITAMIN Inactive MELATONIN 3 MG CAPS 2 po q hs MELATONIN 3 MG CAPS 264110 MELATONIN Inactive KEFLEX 500 MG ORAL CAPS 1 cap QID by mouth KEFLEX 500 MG ORAL CAPS 152963 CEPHALEXIN Inactive CLINDAMYCIN HCL 150 MG CAPS 1 four times a day CLINDAMYCIN HCL 150 MG CAPS 125759 CLINDAMYCIN HCL Inactive DIFLUCAN 150 MG TAB 1 tablet by mouth daily DIFLUCAN 150 MG TAB 194520 FLUCONAZOLE Inactive PROZAC 20 MG CAP Take one by mouth daily PROZAC 20 MG CAP 584874 FLUOXETINE HCL Inactive IBUPROFEN 600 MG TAB 1 po TID PRN IBUPROFEN 600 MG TAB 280685 IBUPROFEN Inactive VYVANSE 40 MG CAPS 1 daily, VYVANSE 40 MG CAPS LISDEXAMFETAMINE DIMESYLATE Inactive TRAZODONE HCL 100 MG TAB take 1 at bedtime TRAZODONE HCL 100 MG TAB 690098 TRAZODONE HCL Inactive AMITRIPTYLINE HCL 100 MG TAB one at hs AMITRIPTYLINE HCL 100 MG TAB 097919 AMITRIPTYLINE HCL Inactive AMLODIPINE BESYLATE 5 MG TABS 1 tablet by mouth daily AMLODIPINE BESYLATE 5 MG TABS 899470 AMLODIPINE BESYLATE Inactive LATUDA 80 MG TABS Take one by mouth daily LATUDA 80 MG TABS LURASIDONE HCL Inactive SAPHRIS 5 MG SUBL 1 po bid SAPHRIS 5 MG SUBL ASENAPINE MALEATE Inactive PREDNISONE 20 MG TAB 2 tabs daily for 4 days, 1 tab daily for 4 days, 1/2 tab daily for 4 days PREDNISONE 20 MG TAB 211873 PREDNISONE Inactive AMBIEN 5 MG ORAL TABS 1 tab at bedtime AMBIEN 5 MG ORAL TABS 720459 ZOLPIDEM TARTRATE Inactive PROZAC 20 MG ORAL CAPS 1 tab daily PROZAC 20 MG ORAL CAPS 642182 FLUOXETINE HCL Inactive ABILIFY 15 MG ORAL TABS 1 tab daily ABILIFY 15 MG ORAL TABS 423573 ARIPIPRAZOLE Inactive METOPROLOL TARTRATE 50 MG TAB 1 po bid METOPROLOL TARTRATE 50 MG TAB 570124 METOPROLOL TARTRATE Inactive TRAMADOL HCL 50 MG TABS 1-2 po TID PRN Pain TRAMADOL HCL 50 MG TABS 658703 TRAMADOL HCL Inactive PIROXICAM 20 MG CAPS 1 cap po qd PRN Pain PIROXICAM 20 MG CAPS 616463 PIROXICAM Inactive MINIPRESS 2 MG CAPS 4 cap po at night MINIPRESS 2 MG CAPS 255645 PRAZOSIN HCL Inactive MIRALAX PACK 1 po qd PRN Constipation MIRALAX PACK 557524 POLYETHYLENE GLYCOL 3350 Inactive METOPROLOL TARTRATE 25 MG ORAL TABS 1/2 tablet twice daily for heart rate and blood pressure METOPROLOL TARTRATE 25 MG ORAL TABS 225061 METOPROLOL TARTRATE Inactive VALIUM 5 MG TAB Take 1-2 tablets daily VALIUM 5 MG TAB 979372 DIAZEPAM Inactive CEFDINIR 300 MG CAPS by mouth twice a day CEFDINIR 300 MG CAPS 611766 CEFDINIR Inactive PREDNISONE 20 MG TAB 2 tabs daily for 3 days, 1 tab daily for 3 days, 1/2 tab daily for 2 days PREDNISONE 20 MG TAB 097905 PREDNISONE Inactive BACTRIM DS 800-160 MG TABS [...] x 10 days KEFLEX 500 MG CAP 240947 CEPHALEXIN Inactive Advance Directives Directive Description Start [...] % 11.6-14.8 platelet count 394 10^3/MM^3 10*3/mm3 641-145 9126/01/11 leukocyte count, blood 13.8 10^3/MM^3 10*3/mm3 4.6-10.2 [...] Panel - Chemistry sodium, serum 139 mmol/L 013-882 0202/12/03 carbon dioxide, venous blood 28.5 mmol/L 21.0-32.0 [...] 5.5 % 4.3-6.0 cholesterol, serum 159 mg/dL 064-893 5107/12/03 triglyceride, serum, fasting 118 mg/dL 30-200 HDL [...] Panel - Chemistry sodium, serum 139 mmol/L 844-112 5133/12/22 carbon dioxide, venous blood 26.8 mmol/L 21.0-32.0 potassium, serum 4.2 mmol/L 3.5-5.2 chloride, serum 103 mmol/L 98-107 blood glucose 115 mg/dL 65-110 urea nitrogen, blood 20 mg/dL 7-18 creatinine, serum 0.90 mg/dL 0.55-1.30 alanine aminotransferase (SGPT), serum 38 U/L -78 aspartate aminotransferase (SGOT), serum 19 U/L 15-37 calcium, serum 8.6 mg/dL 8.5-10.1 bilirubin, serum, total 0.30 mg/dL 0.00-1.00 sodium, serum 139 mmol/L 584-207 9285/01/11 carbon dioxide, venous blood 26.6 mmol/L 21.0-32.0 potassium, serum 4.1 mmol/L 3.5-5.2 chloride, serum 100 mmol/L 98-107 blood glucose 86 mg/dL 65-110 urea nitrogen, blood 16 mg/dL 7-18 creatinine, serum 1.00 mg/dL 0.55-1.30 alanine aminotransferase (SGPT), serum 48 U/L -78 aspartate aminotransferase (SGOT), serum 17 U/L 15-37 calcium, serum 9.1 mg/dL 8.5-10.1 bilirubin, serum, total 0.40 mg/dL 0.00-1.00 sodium, serum 142 mmol/L 687-857 6897/06/08 carbon dioxide, venous blood 27.6 mmol/L 21.0-32.0 [...] Rate - Chemistry sodium, serum 139 mmol/L 583-297 4956/12/11 carbon dioxide, venous blood 25.4 mmol/L 21.0-32.0 [...] mg/dL Encounters Code Encounter Date Provider Facility CPT-43065 Level 3 Est. Patient 08:56:03 CDT Luigi Martínez [facility] CPT-82467 Level 4 Est. Patient 12:11:48 CDT Fabiola Johnson [facility] CPT-34582 Level 3 New Patient 16:53:37 CDT Albert Caldera MD [facility] CPT-79495 Level 3 Est. Patient 11:25:49 CDT Renzo Thornton DO [facility] CPT-89072 Level 3 Est. Patient 15:22:01 CDT Ahmet Carbajal MD [facility] CPT-91684 Level 4 Est. Patient 09:00:51 [facility] Vishal Hui MD [facility] CPT-29885 Level 3 Est. Patient 11:37:33 [facility] Vishal Hui MD [facility] CPT-08259 Level 3 Est. Patient 08:41:09 [facility] Vishal Hui MD [facility] CPT-88879 Level 4 Est. Patient 10:19:35 [facility] Vishal Hui MD [facility] CPT-45395 Level 3 Est. Patient 13:35:45 CDT Vishal Hui MD [facility] CPT-76792 Level 4 Est. Patient 10:08:37 CDT Vishal Hui MD [facility] CPT-13548 Level 3 Est. Patient 11:22:10 CDT Vishal Hui MD [facility] CPT-07203 Level 3 Est. Patient 11:03:32 CDT Sahara Rodriguez MD [facility]-25507 Level 3 Est. Patient 09:41:35 CDT Vishal Hui MD [facility] CPT-30447 Level 3 Est. Patient 12:00:41 CDT Neeraj Collins MD [facility]-00109 Level 3 Est. Patient 09:16:24 CDT Vishal Hui MD [facility] CPT-62123 Level 4 Est. Patient 13:59:09 CDT Neeraj Collins MD [facility]-72078 Level 3 Est. Patient 15:19:43 CDT Renzo Thornton DO [facility] CPT-35499 Level 3 Est. Patient 18:10:26 CDT Sahara Rodriguez MD [facility] [place]-01807 Level 3 Est. Patient 14:49:50 CDT Vishal Hui MD [facility] CPT-46139 Level 4 Est. Patient 18:41:46 CDT Neeraj Collins MD [facility] CPT-91048 Level 4 Est. Patient 09:18:38 [facility] Vishal Hui MD [facility] CPT-30024 Level 3 Est. Patient 14:43:55 [facility] Vishal Hui MD [facility]-92683 Level 3 Est. Patient 15:26:33 [facility] Sahara Rodriguez MD PhD [facility] CPT-42861 Level 3 Est. Patient 10:32:14 [facility] Vishal Hui MD [facility] CPT-25340 Level 3 Est. Patient 15:12:52 [facility] Vishal Hui MD [facility] CPT-42063 Level 4 Est. Patient 09:19:27 CDT Vishal Hui MD [facility] CPT-88437 Level 3 Est. Patient 15:53:00 CDT Renzo Thornton [facility] CPT-81483 Level 3 Est. Patient 15:50:30 CDT Renzo Thornton [facility] CPT-87239 Level 3 Est. Patient 16:55:24 CDT Vishal Hui MD [facility] Procedures Code Procedure Name Date Entry Date Standard Description CPT-91868 Cervical Min 4V - XRAY USE ONLY 09:01:40 CDT CPT-21135 Chest 2V Frontal and Lat - XRAY USE ONLY 11:06:31 CDT CPT-00168 EKG Trac and Interp - XRAY USE ONLY 11:31:43 CDT 08/26 CPT-J3420 Vitamin B12 1000mcg (Cyanocobalamin) 08:10:26 [facility] 04/12 CPT-08743 Abx/Therapy Injection 08:10:26 [facility] CPT-G0438 Initial Annual Wellness Exam 19:01:01 [facility] CPT-J3420 Vitamin B12 1000mcg (Cyanocobalamin) 16:57:46 CDT 08/14 CPT-67006 Recombivax HB Injection Suspension 5 MCG/0.5ML 08:37:50 [facility] CPT-13600 Immunization Single Admin 08:37:50 [facility] CPT-J3420 Vitamin B12 1000mcg (Cyanocobalamin) 08:32:16 [facility] 03/11 CPT-82411 Abx/Therapy Injection 08:32:16 [facility] CPT-51965 Chest 2V Frontal and Lat 11:46:38 [facility] CPT-15249 Venipuncture Draw Fee 09:12:45 [facility] CPT-J3420 Vitamin B12 1000mcg (Cyanocobalamin) 08:50:15 [facility] 02/08 CPT-16342 Abx/Therapy Injection 08:50:15 [facility] CPT-Cryo Cryotherapy 10:19:35 [facility] CPT-000 Give Appropriate Flu Vaccine 09:22:16 CDT CPT-J3420 Vitamin B12 1000mcg (Cyanocobalamin) 19:08:57 CDT 01/11 CPT-05672 Abx/Therapy Injection 19:08:57 CDT CPT-J3420 Vitamin B12 1000mcg (Cyanocobalamin) 08:19:08 CDT 12/11 CPT-71359 Abx/Therapy Injection 08:19:08 CDT CPT-J3420 Vitamin B12 1000mcg (Cyanocobalamin) 14:48:00 CDT 11/09 CPT-94934 Abx/Therapy Injection 14:47:59 CDT CPT-J3420 Vitamin B12 1000mcg (Cyanocobalamin) 08:34:04 CDT 10/09 CPT-64414 Abx/Therapy Injection 08:34:04 CDT CPT-J3420 Vitamin B12 1000mcg (Cyanocobalamin) 09:18:52 CDT 09/11 CPT-46014 Abx/Therapy Injection 09:18:52 CDT CPT-J3420 Vitamin B12 1000mcg (Cyanocobalamin) 08:35:44 CDT 09/04 CPT-48863 Abx/Therapy Injection 08:35:44 CDT CPT-82287 Immunization Single Admin 11:07:16 CDT CPT-92083 Hepatitis B adult IM 11:07:16 CDT CPT-J3420 Vitamin B12 1000mcg (Cyanocobalamin) 11:00:49 CDT 08/28 CPT-J1040 Depo Medrol 80 mg (Methyl Prednisolone Acetate) 11:00: 49 CDT CPT-41635 Abx/Therapy Injection 11:00:49 CDT CPT-J1040 Depo Medrol 80 mg (Methyl Prednisolone Acetate) 09:16: 23 CDT CPT-J3420 Vitamin B12 1000mcg (Cyanocobalamin) 08:27:05 CDT 08/20 CPT-95731 Abx/Therapy Injection 08:27:05 CDT CPT-43686 Recombivax HB Injection Suspension 5 MCG/0.5ML 10:00:41 CDT CPT-96760 Administration single or combination vaccine inc oral 10 :00:41 CDT CPT-72336 Sono transvag pelvis non OB uterus ovaries cervix 16:36: 57 CDT CPT-51813 LS spine comp w obliq 09:50:55 [facility] CPT-45571 Abd compl w upright 09:50:55 [facility] CPT-J1100 Decadron 4mg (Dexamethasone) 15:51:24 [facility] CPT-J1030 Depo Medrol 40 mg (Methyl Prednisolone Acetate) 15:51: 24 [facility] CPT-10375 Abx/Therapy Injection 15:51:24 [facility] CPT-J1100 Decadron 4mg (Dexamethasone) 15:26:33 [facility] CPT-J1030 Depo Medrol 40 mg (Methyl Prednisolone Acetate) 15:26: 33 [facility] CPT-28441 Sono retroperitoneal complete kidneys and bladder 17:15: 30 CDT CPT-32972 Abd compl w upright 16:09:25 CDT CPT-J1100 Decadron 8mg (Dexamethasone) 17:07:57 CDT CPT-54683 Abx/Therapy Injection 17:07:57 CDT CPT-J1100 Decadron 8mg (Dexamethasone) 16:55:24 CDT CPT-83471 Chest 2V Frontal and Lat 16:32:44 CDT
--- OUTSIDE RECORDS SUMMARY | 2016-11-04 17:51 | XMS REPORT | Clinical Summary ---
Author Author Admin, E Organization [employer] Address Unknown Phone Unavailable Allergies, Adverse Reactions, [...] q6hr PRN Muscle Spasm/Back Pain TIZANIDINE HCL 65252212910 Active Vishal Hui MD Active CLINDAMYCIN HCL 150 MG CAPS 1 four times a day CLINDAMYCIN HCL 22400192356 No Longer Active Neeraj Collins MD Active KEFLEX 500 MG ORAL CAPS 1 cap QID by mouth CEPHALEXIN 42685422377 No Longer Active Neeraj Collins MD Active DIFLUCAN 150 MG TABS 1 pill every other day x 2 doses FLUCONAZOLE 58272732296 No Longer Active Sahara Rodriguez MD PhD Active MELATONIN 3 MG CAPS 2 po q hs MELATONIN 01618240266 No Longer Active Sahara Rodriguez MD PhD Active MULTIVITAMINS CAPS Take one by mouth daily MULTIPLE VITAMIN 17191793507 No Longer Active Sahara Rodriguez MD PhD Active BACTRIM DS 800-160 MG TAB 1 tab by mouth twice daily TRIMETHOPRIM-SULFAMETHOXAZOLE 20263220915 No Longer Active Sahara Rodriguez MD PhD Active [facility] PROBIOTIC ORAL CHEW 2 daily po PROBIOTIC PRODUCT 40682122792 No Longer Active Sahara Rodriguez MD PhD Active IBUPROFEN 600 MG TAB 1 po TID PRN IBUPROFEN 31976533914 Active Luigi Martínez [employer]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 BACTRIM DS 800-160 MG TABS 1 po BID x 7 days SULFAMETHOXAZOLE-TRIMETHOPRIM 61385975439 No Longer Active Vishal Hui MD Active CHANTIX STARTING MONTH EARNEST 0.5 MG X 11 & 1 MG X 42 TABS 0.5mg daily for 3 days , then 0.5mg BID for 4 days, then 1mg BID VARENICLINE TARTRATE 19144072659 No Longer Active TAMARA Gray Active METOPROLOL TARTRATE 50 MG TAB 1 po bid METOPROLOL TARTRATE 16110855003 Active Vishal Hui MD Active TRAZODONE HCL 100 MG TAB take 1 at bedtime TRAZODONE HCL 04445441484 Active Vishal Hui MD Active AMLODIPINE BESYLATE 5 MG TABS 1 tablet by mouth daily AMLODIPINE BESYLATE 09774322272 Active Vishal Hui MD Active VERAPAMIL HCL CR 120 MG TAB CR 1 po bid VERAPAMIL HCL 98359518831 No Longer Active Vishal Hui MD Active METOPROLOL SUCCINATE 50 MG TB24 1 tablet by mouth daily METOPROLOL SUCCINATE 11083643364 No Longer Active Vishal Hui MD Active TRAMADOL HCL 50 MG TABS 1-2 po TID PRN Pain TRAMADOL HCL 99339738006 Active Vishal Hui MD Active SAPHRIS 5 MG SUBL 1 po bid ASENAPINE MALEATE 01606857886 Active Vishal Hui MD Active SAPHRIS 10 MG SUBL 1 tab po bid ASENAPINE MALEATE 59935406557 No Longer Active Vishal Hui MD Active LISINOPRIL 20 MG TABS 1 tab po qd LISINOPRIL 73828855120 No Longer Active Vishal Hui MD Active BENADRYL 25 MG CAP 2 po tid prn anxiety DIPHENHYDRAMINE HCL 17216222693 Active Vishal Hui MD Active LATUDA 80 MG TABS Take one by mouth daily LURASIDONE HCL 67415173572 Active Vishal Hui MD Active LATUDA 20 MG TABS Take one by mouth daily LURASIDONE HCL 89818155170 No Longer Active Vishal Hui MD Active TRAZODONE HCL 50 MG TABS 1/2 tab po qd prn for anxiety TRAZODONE HCL 88224113669 No Longer Active Vishal Hui MD Active PIROXICAM 20 MG CAPS 1 cap po qd PRN Pain PIROXICAM 77753314957 Active Vishal Hui MD Active OMEPRAZOLE 20 MG TBEC 1 po q a.m. 30min prior to first food intake OMEPRAZOLE 04484845082 Active Vishal Hui MD Active RANITIDINE HCL 150 MG CAPS 1 twice a day RANITIDINE HCL 84847780520 Active Vishal Hui MD Active PROZAC 20 MG CAP Take one by mouth daily FLUOXETINE HCL 24057056442 Active Vishal Hui MD Active LINZESS 290 MCG CAPS Take one by mouth daily LINACLOTIDE 65842104078 Active Vishal Hui MD Active SAPHRIS 5 MG SUBL 1 tab po qd ASENAPINE MALEATE 17098409991 No Longer Active Vishal Hui MD Active ZALEPLON 10 MG CAPS 1 cap po every other night ZALEPLON 43031469758 No Longer Active Vishal Hui MD Active LYRICA 50 MG CAPS 1 tab po TID PREGABALIN 09881196497 No Longer Active Vishal Hui MD Active LORATADINE 10 MG TABS 1 tab po qd LORATADINE 43637891457 No Longer Active Vishal Hui MD Active VERAPAMIL HCL ER 180 MG CR-TABS 1 tab po bid VERAPAMIL HCL 83372822294 No Longer Active Vishal Hui MD Active MIRALAX POWD 1 capfull once daily POLYETHYLENE GLYCOL 3350 06097717461 No Longer Active Vishal Hui MD Active PREDNISONE 20 MG TABS 1 tab po qd PREDNISONE 52284269370 No Longer Active Renzo Thornton DO Active LEVOFLOXACIN 500 MG TABS 1 tab po qd LEVOFLOXACIN 91245777290 No Longer Active Renzo Thornton DO Active BUSPIRONE HCL 15 MG TABS 1 tab po TID BUSPIRONE HCL 45256990179 No Longer Active Renzo Thornton DO Active BENZTROPINE MESYLATE 1 MG TABS 1 tab po qd BENZTROPINE MESYLATE 58862981565 No Longer Active Renzo Thornton DO Active ATENOLOL 25 MG TABS 1 tab po qd ATENOLOL 92512963983 No Longer Active Renzo Thornton DO Active ESCITALOPRAM OXALATE 20 MG TABS 1 tab po qd ESCITALOPRAM OXALATE 58107147322 No Longer Active Renzo Thornton DO Active ADVAIR DISKUS 250-50 MCG/DOSE AEPB 1 puff BID FLUTICASONE-SALMETEROL 02687260423 No Longer Active Renzo Thornton DO Active PREDNISONE 20 MG TAB 2 tabs daily for 3 days, 1 tab daily for 3 days, 1/2 tab daily for 2 days PREDNISONE 39059470914 No Longer Active Vishal Hui MD Active CEFDINIR 300 MG CAPS by mouth twice a day CEFDINIR 39663508708 No Longer Active Vishal Hui MD Active LANSOPRAZOLE 30 MG CPDR 1 cap po qd LANSOPRAZOLE 77817936184 No Longer Active Vishal Hui MD Active TOPAMAX 25 MG TABS 1 tab po bid TOPIRAMATE 11801547129 Active Vishal Hui MD Active MINIPRESS 2 MG CAPS 1 cap po at night PRAZOSIN HCL 78953252215 Active Vishal Hui MD Active BACLOFEN 20 MG TABS 1 tab po tid BACLOFEN 41948521913 No Longer Active Vishal Hui MD Active ADVAIR DISKUS 250-50 MCG/DOSE AEPB 1 puff BID ADVAIR DISKUS 250-50 MCG/DOSE AEPB FLUTICASONE-SALMETEROL Inactive ESCITALOPRAM OXALATE 20 MG TABS 1 tab po qd ESCITALOPRAM OXALATE 20 MG TABS 182400 ESCITALOPRAM OXALATE Inactive ATENOLOL 25 MG TABS 1 tab po qd ATENOLOL 25 MG TABS 006255 ATENOLOL Inactive BENZTROPINE MESYLATE 1 MG TABS 1 tab po qd BENZTROPINE MESYLATE 1 MG TABS 442359 BENZTROPINE MESYLATE Inactive BUSPIRONE HCL 15 MG TABS 1 tab po TID BUSPIRONE HCL 15 MG TABS 638386 BUSPIRONE HCL Inactive LEVOFLOXACIN 500 MG TABS 1 tab po qd LEVOFLOXACIN 500 MG TABS 657582 LEVOFLOXACIN Inactive PREDNISONE 20 MG TABS 1 tab po qd PREDNISONE 20 MG TABS 233250 PREDNISONE Inactive MIRALAX POWD 1 capfull once daily MIRALAX POWD 022398 POLYETHYLENE GLYCOL 3350 Inactive VERAPAMIL HCL ER 180 MG CR-TABS 1 tab po bid VERAPAMIL HCL ER 180 MG CR-TABS VERAPAMIL HCL Inactive LORATADINE 10 MG TABS 1 tab po qd LORATADINE 10 MG TABS 214633 LORATADINE Inactive LYRICA 50 MG CAPS 1 tab po TID LYRICA 50 MG CAPS PREGABALIN Inactive ZALEPLON 10 MG CAPS 1 cap po every other night ZALEPLON 10 MG CAPS 867443 ZALEPLON Inactive SAPHRIS 5 MG SUBL 1 tab po qd SAPHRIS 5 MG SUBL ASENAPINE MALEATE Inactive TRAZODONE HCL 50 MG TABS 1/2 tab po qd prn for anxiety TRAZODONE HCL 50 MG TABS 569572 TRAZODONE HCL Inactive LATUDA 20 MG TABS Take one by mouth daily LATUDA 20 MG TABS LURASIDONE HCL Inactive LISINOPRIL 20 MG TABS 1 tab po qd LISINOPRIL 20 MG TABS 161204 LISINOPRIL Inactive SAPHRIS 10 MG SUBL 1 [...] po q hs MELATONIN 3 MG CAPS 368681 MELATONIN Inactive KEFLEX 500 MG ORAL CAPS 1 cap QID by mouth KEFLEX 500 MG ORAL CAPS 251294 CEPHALEXIN Inactive CLINDAMYCIN HCL 150 MG CAPS 1 four times a day CLINDAMYCIN HCL 150 MG CAPS 161993 CLINDAMYCIN HCL Inactive CEFDINIR 300 MG CAPS by mouth twice a day CEFDINIR 300 MG CAPS 147977 CEFDINIR Inactive PREDNISONE 20 MG TAB 2 tabs daily for 3 days, 1 tab daily for 3 days, 1/2 tab daily for 2 days PREDNISONE 20 MG TAB 653337 PREDNISONE Inactive BACTRIM DS 800-160 MG TABS 1 po BID x 7 days BACTRIM DS 800-160 MG TABS SULFAMETHOXAZOLE-TRIMETHOPRIM Inactive DIFLUCAN 150 MG TABS 1 pill every other day x 2 doses DIFLUCAN 150 MG TABS 580418 FLUCONAZOLE Inactive Vital Signs Date Name Value [...] ... - Chemistry sodium, serum 140 mmol/L 832-616 2389/05/28 potassium, serum 4.2 mmol/L 3.5-5.2 chloride, serum [...] Panel - Chemistry sodium, serum 141 mmol/L [phone] creatinine, serum 0.90 mg/dL 0.60-1.30 alanine aminotransferase [...] Panel - Chemistry sodium, serum 139 mmol/L 194-985 6716/12/31 potassium, serum 4.8 mmol/L 3.5-5.2 chloride, serum 106 mmol/L 98-107 carbon dioxide, venous blood 24.3 mmol/L 21.0-32.0 blood glucose 90 mg/dL 65-110 urea nitrogen, blood 16 mg/dL 7-18 creatinine, serum 1.00 mg/dL 0.60-1.30 alanine aminotransferase (SGPT), serum 41 U/L 12-78 aspartate aminotransferase (SGOT), serum 17 U/L 15-37 calcium, serum 8.6 mg/dL 8.5-10.1 bilirubin, serum, total 0.30 mg/dL 0.00-1.00 cholesterol, serum 108 mg/dL 363-522 4959/12/31 triglyceride, serum, fasting 120 mg/dL 30-200 HDL cholesterol, serum 28 mg/dL 32-96 LDL cholesterol, serum 56 mg/dL 0-130 Lab Report: MICROALBUMIN - Chemistry albumin/creatinine ratio, urine < 30 mg/g mg/g{creat} 0-29 Lab Report: MICROALBUMIN - Lab microalbumin, urine 10 0-19 Lab Report: UADIP W/MICRO, AUTO, [facility] - Chemistry RBC, urine, dipstick Negative Negative human chorionic gonadotropin, urine, qualitative (urine test) Negative Negative protein, total urine random Negative mg/dL Negative Lab Report: UADIP W/MICRO, AUTO, [facility] - Urinalysis glucose, urine, semiquantitative Negative Negative urobilinogen, urine, semiquantitative (dipstick) 0.2 Normal appearance, urine Clear Clear specific gravity, urine 1.025 1.000-1.030 pH, urine, semiquantitative 7.0 5.0-8.5 bilirubin, urine Negative Negative ketones, urine, by test strip Negative Negative urine color Yellow Colorless;Lightyellow;Straw;Yellow leukocyte esterase, urine, by dipstick Negative Negative nitrite, urine, semiquantitative Negative Negative Lab Report: Varicella-Zoater Inga IgG,IgM/93769, HEP Be Antibody/556, RUB ... - Serology rubella antibody, serum, IgG 2.88 Encounters Code Encounter Date Provider Facility [place] [address] Level 3 Est. Patient 09:16:24 CDT Vishal Hui MD [facility]-04029 Level 4 Est. Patient 13:59:09 CDT Neeraj Collins MD [facility] Level 3 Est. Patient 15:19:43 CDT Renzo Thornton [facility]-72840 Level 3 Est. Patient 18:10:26 CDT Sahara Rodriguez MD [place] 877053 Level 3 Est. Patient 14:49:50 CDT Vishal Hui MD [facility]30 Level 4 Est. Patient 18:41:46 CDT Neeraj Collins MD [facility]-52295 Level 4 Est. Patient 09:18:38 LEGAL SUPPORT ASSISTANT Vishal Hui MD [facility]-55925 Level 3 Est. Patient 14:43:55 LEGAL SUPPORT ASSISTANT Vishal Hui MD [facility]408 Level 3 Est. Patient 15:26:33 LEGAL SUPPORT ASSISTANT Sahara Rodriguez MD PhD [facility]237 Level 3 Est. Patient 10:32:14 LEGAL SUPPORT ASSISTANT Vishal Hui MD [facility]86 Level 3 Est. Patient 15:12:52 LEGAL SUPPORT ASSISTANT Vishal Hui MD [facility]-85247 Level 4 Est. Patient 09:19:27 CDT Vishal Hui MD [facility] Level 3 Est. Patient 15:53:00 CDT Renzo Thornton DO [facility]45 Level 3 Est. Patient 15:50:30 CDT Renzo Thornton DO [facility] CPT-24728 Level 3 Est. Patient 16:55:24 CDT Vishal Hui MD [facility] Procedures Code Procedure Name Date Entry Date Standard Description CPT-00977 Immunization Single Admin 11:07:16 CDT CPT-60003 Hepatitis B adult IM 11:07:16 CDT CPT-J3420 Vitamin B12 1000mcg (Cyanocobalamin) 11:00:49 CDT 08/28 CPT-J1040 Depo Medrol 80 mg (Methyl Prednisolone Acetate) 11:00: 49 CDT CPT-24608 Abx/Therapy Injection 11:00:49 CDT CPT-J1040 Depo Medrol 80 mg (Methyl Prednisolone Acetate) 09:16: 23 CDT CPT-J3420 Vitamin B12 1000mcg (Cyanocobalamin) 08:27:05 CDT 08/20 CPT-75146 Abx/Therapy Injection 08:27:05 CDT CPT-40843 Recombivax HB Injection Suspension 5 MCG/0.5ML 10:00:41 CDT CPT-04331 Administration single or combination vaccine inc oral 10 :00:41 CDT CPT-64353 Sono transvag pelvis non OB uterus ovaries cervix 16:36: 57 CDT CPT-42623 LS spine comp w obliq 09:50:55 LEGAL SUPPORT ASSISTANT CPT-96752 Abd compl w upright 09:50:55 LEGAL SUPPORT ASSISTANT CPT-J1100 Decadron 4mg (Dexamethasone) 15:51:24 LEGAL SUPPORT ASSISTANT CPT-J1030 Depo Medrol 40 mg (Methyl Prednisolone Acetate) 15:51: 24 LEGAL SUPPORT ASSISTANT CPT-36195 Abx/Therapy Injection 15:51:24 LEGAL SUPPORT ASSISTANT CPT-J1100 Decadron 4mg (Dexamethasone) 15:26:33 LEGAL SUPPORT ASSISTANT CPT-J1030 Depo Medrol 40 mg (Methyl Prednisolone Acetate) 15:26: 33 LEGAL SUPPORT ASSISTANT CPT-35930 Sono retroperitoneal complete kidneys and bladder 17:15: 30 CDT CPT-69884 Abd compl w upright 16:09:25 CDT CPT-J1100 Decadron 8mg (Dexamethasone) 17:07:57 CDT CPT-29197 Abx/Therapy Injection 17:07:57 CDT CPT-J1100 Decadron 8mg (Dexamethasone) 16:55:24 CDT CPT-38250 Chest 2V Frontal and Lat 16:32:44 CDT
--- OUTSIDE RECORDS SUMMARY | 2016-11-04 17:54 | XMS REPORT | Clinical Summary ---
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 Suzan Boo [employer] Routine gynecological examination Bronchitis, acute with mild bronchospasm 466.0 Active Suzan Boo [employer]ER Acute bronchitis Fibrocystic breast changes 610.1 Active [...] SOLN 1 drop PRN eye spasms TROPICAMIDE 49052365663 Active Samantha Stephan RMA Active RISPERDAL 4 MG ORAL TABS 1 tab at bedtime RISPERIDONE 95282783342 Active Samantha Stephan RMA Active LEVAQUIN 500 MG TABS 1 daily for infection LEVOFLOXACIN 42606750433 Active Suzan Boo APRN Active TESSALON PERLES 100 MG CAPS 1 three times a day as needed for cough BENZONATATE 29809388773 Active Suzan Boo APRN Active ZOFRAN 4 MG TABS 1 po q6hr PRN Nausea ONDANSETRON HCL No Longer Active Suzan Boo APRN Active FLUTICASONE PROPIONATE 50 MCG/ACT SUSP 2 sprays each nostril daily before bed. FLUTICASONE PROPIONATE 30458514930 No Longer Active Suzan Boo APRN Active ASPIRIN 325 MG ORAL TABS 1 tab q.d ASPIRIN 38608480630 No Longer Active Suzan Boo APRN Active HALOPERIDOL 10 MG ORAL TABS 1 tab q.d HALOPERIDOL 07226908349 No Longer Active Suzan Boo APRN Active GUAIFENESIN-CODEINE 100-10 MG/5ML SYRP 5ml every 4 to 6 hours as needed for cough GUAIFENESIN-CODEINE 32598351273 No Longer Active Suzan Boo APRN Active ZITHROMAX Z-EARNEST 250 MG TABS 2 today and then 1 daily for 4 days AZITHROMYCIN 81658586639 No Longer Active Suzan Boo APRN Active PREDNISONE 10 MG TABS 2 daily for 5 days then 1 daily for 5 days PREDNISONE 44952451360 Active Suzan Boo APRN Active CLONAZEPAM 1 MG ORAL TABS 1 twice a day and an additional 1 tablet every other day as needed for pseudoseizures or anxiety CLONAZEPAM 29577515469 Active Ahmet Carbajal MD Active HYDROCODONE-ACETAMINOPHEN 5-325 MG ORAL TABS 1 tab two times a day HYDROCODONE-ACETAMINOPHEN 22463989423 No Longer Active Ahmet Carbajal MD Active LAMICTAL 100 MG ORAL TABS 1 tab 2 times qd. LAMOTRIGINE 82459873227 Active Ahmet Carbajal MD Active PREDNISONE 20 MG TABS 2 daily for 5 days then 1 daily for 5 days PREDNISONE 50975302942 No Longer Active Ahmet Carbajal MD Active FLUTICASONE PROPIONATE 50 MCG/ACT SUSP 1 to 2 sprays each nostril daily for allergies FLUTICASONE PROPIONATE 23956102919 Active Tila Valenzuela Active BENADRYL 25 MG CAP 4 po at bedtime for insomnia DIPHENHYDRAMINE HCL 37610902408 No Longer Active Ahmet Carbajal MD Active ADVAIR DISKUS 250-50 MCG/DOSE INH AEPB 1 puff twice a day for asthma FLUTICASONE-SALMETEROL 09807940423 No Longer Active Ahmet Carbajal MD Active KLONOPIN 1 MG ORAL TABS 1 tab po TID CLONAZEPAM 54157428020 No Longer Active Ahmet Carbajal MD Active ABILIFY MAINTENA 400 MG IM SUSR 400mg injection every 26 days ARIPIPRAZOLE 21338089724 No Longer Active Ahmet Carbajal MD Active TRAMADOL HCL 50 MG TABS 1/2-1 tab TID PRN TRAMADOL HCL 71478670807 No Longer Active Ahmet Carbajal MD Active BACTRIM DS 800-160 MG TABS 1 twice a day SULFAMETHOXAZOLE- TRIMETHOPRIM 95666099683 No Longer Active Ahmet Carbajal MD Active PROAIR HFA 108 (90 BASE) MCG/ACT AERS 2 puffs four times a day as needed 2015 ALBUTEROL SULFATE 16701520949 Active Ahmet Carbajal MD Active EQ NICOTINE 21 MG/24HR TRANS PT24 Apply daily to stop smoking NICOTINE 83835521796 Active Ahmet Carbajal MD Active MONISTAT 7 COMBO PACK WOODROW 100 & 2 MG-% (9GM) VAG KIT 1 applicatorful per vagina q pm x 7 MICONAZOLE NITRATE 24528165376 No Longer Active Ahmet Carbajal MD Active FLAGYL 500 MG TAB 1 tablet by mouth bid METRONIDAZOLE 83031380076 No Longer Active Ahmet Carbajal MD Active OXYCODONE HCL ER 10 MG ORAL T12A 1/2 tab by mouth every 4 hours prn OXYCODONE HCL 77473858800 No Longer Active Ahmet Carbajal MD Active METHYLPREDNISOLONE 4 MG ORAL TABS po daily METHYLPREDNISOLONE 86919872802 No Longer Active Ahmet Carbajal MD Active LEVOFLOXACIN 500 MG ORAL TABS po daily LEVOFLOXACIN 59201876387 No Longer Active Ahmet Carbajal MD Active VIIBRYD 10 MG ORAL TABS Take 1 tablet once a day VILAZODONE HCL 46966316994 No Longer Active Ahmet Carbajal MD Active TOPAMAX 50 MG ORAL TABS 1 tab twice daily TOPIRAMATE 80336755658 No Longer Active Ahmet Carbajal MD Active DICLOFENAC SODIUM 50 MG TBEC 1 tablet by mouth four times daily PRN Pain 2015 DICLOFENAC SODIUM 07151403485 No Longer Active Ahmet Carbajal MD Active ADZENYS XR-ODT 6.3 MG ORAL TBED 1 tab po daily for ADHD AMPHETAMINE 25303480359 No Longer Active Ahmet Carbajal MD Active CHANTIX 1 MG TABS 1 twice a day to help quit smoking VARENICLINE TARTRATE 69948738821 No Longer Active Dipika Burgos MD Active CHANTIX STARTING MONTH EARNEST 0.5 MG X 11 & 1 MG X 42 TABS take as directed 2015 VARENICLINE TARTRATE 71045780070 No Longer Active Dipika Burgos MD Active TESSALON PERLES 100 MG CAP 1 to 2 tablets by mouth 3 times daily as needed for cough BENZONATATE 42422812365 No Longer Active Luigi Martínez APRN Active IMITREX 50 MG ORAL TABS 0.5 po x 1 PRN Headache. May repeat dose x 1 in 2 hours if needed SUMATRIPTAN SUCCINATE 16500691657 Active Ahmet Carbajal MD Active HYDROCODONE-ACETAMINOPHEN 5-325 MG TABS 1 to 2 four times a day as needed for pain use until can be seen by specialist HYDROCODONE- ACETAMINOPHEN 88954061331 No Longer Active Vishal Hui MD Active PROAIR HFA 108 (90 BASE) MCG/ACT AERS 2 puffs four times a day as needed 2015 ALBUTEROL SULFATE 13146138210 No Longer Active Vishal Hui MD Active PREDNISONE 20 MG TABS 2 daily for 5 days then 1 daily for 5 days PREDNISONE 19458581255 No Longer Active Vishal Hui MD Active ZITHROMAX Z-EARNEST 250 MG TABS 2 today and then 1 daily for 4 days AZITHROMYCIN 10648044596 No Longer Active Vishal Hui MD Active DICLOFENAC POTASSIUM TABS Take 1 tablet twice a day (pt. is not sure of the dose.) DICLOFENAC POTASSIUM TABS 59341485145 No Longer Active Vishal Hui MD Active VERAPAMIL HCL ER 120 MG ORAL CR-TABS Take 1 tablet by mouth twice a day. VERAPAMIL HCL 98272572226 Active Vishal Hui MD Active FLAGYL 500 MG TAB 1 tablet by mouth bid METRONIDAZOLE 73378137262 No Longer Active Vishal Hui MD Active VALIUM 5 MG TAB Take 1-2 tablets daily DIAZEPAM 65556508162 No Longer Active Fabiola Johnson APRN Active METOPROLOL TARTRATE 25 MG ORAL TABS 1/2 tablet twice daily for heart rate and blood pressure METOPROLOL TARTRATE 90572706770 No Longer Active Fabiola Johnson APRN Active MIRALAX ORAL POWD 17GMS DAILY IN WATER POLYETHYLENE GLYCOL 3350 65803679366 Active TAMARA Casey Active MIRALAX PACK 1 po qd PRN Constipation POLYETHYLENE GLYCOL 3350 74057250851 No Longer Active Ahmet Carbajal MD Active MINIPRESS 2 MG CAPS 4 cap po at night PRAZOSIN HCL 04322921742 No Longer Active Ahmet Carbajal MD Active PIROXICAM 20 MG CAPS 1 cap po qd PRN Pain PIROXICAM 21732407565 No Longer Active Ahmet Carbajal MD Active TRAMADOL HCL 50 MG TABS 1-2 po TID PRN Pain TRAMADOL HCL 36658893027 No Longer Active Ahmet Carbajal MD Active METOPROLOL TARTRATE 50 MG TAB 1 po bid METOPROLOL TARTRATE 02907858395 No Longer Active Ahmet Carbajal MD Active ABILIFY 15 MG ORAL TABS 1 tab daily ARIPIPRAZOLE 36691256424 No Longer Active Ahmet Carbajal MD Active PROZAC 20 MG ORAL CAPS 1 tab daily FLUOXETINE HCL 11560486904 No Longer Active Ahmet Carbajal MD Active AMBIEN 5 MG ORAL TABS 1 tab at bedtime ZOLPIDEM TARTRATE 76905485933 No Longer Active Ahmet Carbajal MD Active PREDNISONE 20 MG TAB 2 tabs daily for 4 days, 1 tab daily for 4 days, 1/2 tab daily for 4 days PREDNISONE 89276418791 No Longer Active Ahmet Carbajal MD Active KEFLEX 500 MG CAP 1 po TID x 10 days CEPHALEXIN 86595838503 No Longer Active Vishal Hui MD Active SAPHRIS 5 MG SUBL 1 po bid ASENAPINE MALEATE 66191493399 No Longer Active Jillina Frazell PUBLIC RELATIONS PLAYER Active LATUDA 80 MG TABS Take one by mouth daily LURASIDONE HCL 13835789168 No Longer Active Jillina Frazell PUBLIC RELATIONS PLAYER Active AMLODIPINE BESYLATE 5 MG TABS 1 tablet by mouth daily AMLODIPINE BESYLATE 82516307943 No Longer Active Jillina Frazell PUBLIC RELATIONS PLAYER Active AMITRIPTYLINE HCL 100 MG TAB one at hs AMITRIPTYLINE HCL 30987204063 No Longer Active Vishal Hui MD Active TRAZODONE HCL 100 MG TAB take 1 at bedtime TRAZODONE HCL 79005035399 No Longer Active Vishal Hui MD Active VYVANSE 40 MG CAPS 1 daily, LISDEXAMFETAMINE DIMESYLATE 20031912750 No Longer Active Vishal Hui MD Active IBUPROFEN 600 MG TAB 1 po TID PRN IBUPROFEN 99260841638 No Longer Active Vishal Hui MD Active PROZAC 20 MG CAP Take one by mouth daily FLUOXETINE HCL 11301572868 No Longer Active Vishal Hui MD Active BACTRIM DS 800-160 MG TABS 1 pill by mouth twice daily SULFAMETHOXAZOLE-TRIMETHOPRIM 91660251978 No Longer Active Sahara Rodriguez MD PhD Active DIFLUCAN 150 MG TAB 1 tablet by mouth daily FLUCONAZOLE 10025833735 No Longer Active Vishal Hui MD Active TIZANIDINE HCL 4 MG TABS 1 po q6hr PRN Muscle Spasm/Back Pain TIZANIDINE HCL 21665068599 Active Vishal Hui MD Active CLINDAMYCIN HCL 150 MG CAPS 1 four times a day CLINDAMYCIN HCL 54350195306 No Longer Active Neeraj Collins MD Active KEFLEX 500 MG ORAL CAPS 1 cap QID by mouth CEPHALEXIN 08580518540 No Longer Active Neeraj Collins MD Active DIFLUCAN 150 MG TABS 1 pill every other day x 2 doses FLUCONAZOLE 03227116004 No Longer Active Sahara Rodriguez MD PhD Active MELATONIN 3 MG CAPS 2 po q hs MELATONIN 76465933529 No Longer Active Sahara Rodriguez MD PhD Active MULTIVITAMINS CAPS Take one by mouth daily MULTIPLE VITAMIN 22891462731 No Longer Active Sahara Rodriguez MD PhD Active BACTRIM DS 800-160 MG TAB 1 tab by mouth twice daily TRIMETHOPRIM-SULFAMETHOXAZOLE 18833248578 No Longer Active Sahara Rodriguez MD PhD Active [facility] PROBIOTIC ORAL CHEW 2 daily po PROBIOTIC PRODUCT 96012060671 No Longer Active Sahara Rodriguez MD PhD Active BACTRIM DS 800-160 MG TABS 1 po BID x 7 days SULFAMETHOXAZOLE-TRIMETHOPRIM 14831426272 No Longer Active Vishal Hui MD Active CHANTIX STARTING MONTH EARNEST 0.5 MG X 11 & 1 MG X 42 TABS 0.5mg daily for 3 days , then 0.5mg BID for 4 days, then 1mg BID VARENICLINE TARTRATE 47730921121 No Longer Active TAMARA Gray Active VERAPAMIL HCL CR 120 MG TAB CR 1 po bid VERAPAMIL HCL 11274083364 No Longer Active Vishal Hui MD Active METOPROLOL SUCCINATE 50 MG TB24 1 tablet by mouth daily METOPROLOL SUCCINATE 40053272117 No Longer Active Vishal Hui MD Active SAPHRIS 10 MG SUBL 1 tab po bid ASENAPINE MALEATE 57648603453 No Longer Active Vishal Hui MD Active LISINOPRIL 20 MG TABS 1 tab po qd LISINOPRIL 46732631952 No Longer Active Vishal Hui MD Active LATUDA 20 MG TABS Take one by mouth daily LURASIDONE HCL 20128883191 No Longer Active Vishal Hui MD Active TRAZODONE HCL 50 MG TABS 1/2 tab po qd prn for anxiety TRAZODONE HCL 07424738255 No Longer Active Vishal Hui MD Active OMEPRAZOLE 20 MG TBEC 1 po q a.m. 30min prior to first food intake OMEPRAZOLE 22443595379 Active TAMARA Casey Active RANITIDINE HCL 150 MG CAPS 1 twice a day RANITIDINE HCL 52332013130 Active Luigi Martínez APRN Active LINZESS 290 MCG CAPS Take one by mouth daily LINACLOTIDE 30415148832 No Longer Active Vishal Hui MD Active SAPHRIS 5 MG SUBL 1 tab po qd ASENAPINE MALEATE 78765661040 No Longer Active Vishal Hui MD Active ZALEPLON 10 MG CAPS 1 cap po every other night ZALEPLON 22075780354 No Longer Active Vishal Hui MD Active LYRICA 50 MG CAPS 1 tab po TID PREGABALIN 39714825980 No Longer Active Vishal Hui MD Active LORATADINE 10 MG TABS 1 tab po qd LORATADINE 74630463140 No Longer Active Vishal Hui MD Active VERAPAMIL HCL ER 180 MG CR-TABS 1 tab po bid VERAPAMIL HCL 49847639767 No Longer Active Vishal Hui MD Active MIRALAX POWD 1 capfull once daily POLYETHYLENE GLYCOL 3350 64045163820 No Longer Active Vishal Hui MD Active PREDNISONE 20 MG TABS 1 tab po qd PREDNISONE 26806325665 No Longer Active Renzo Thornton DO Active LEVOFLOXACIN 500 MG TABS 1 tab po qd LEVOFLOXACIN 98622743058 No Longer Active Renzo Thornton DO Active BUSPIRONE HCL 15 MG TABS 1 tab po TID BUSPIRONE HCL 91557858424 No Longer Active Renzo Thornton DO Active BENZTROPINE MESYLATE 1 MG TABS 1 tab po qd BENZTROPINE MESYLATE 00530810348 No Longer Active Renzo Thornton DO Active ATENOLOL 25 MG TABS 1 tab po qd ATENOLOL 26888903440 No Longer Active Renzo Thornton DO Active ESCITALOPRAM OXALATE 20 MG TABS 1 tab po qd ESCITALOPRAM OXALATE 77307564171 No Longer Active Renzo Thornton DO Active ADVAIR DISKUS 250-50 MCG/DOSE AEPB 1 puff BID FLUTICASONE-SALMETEROL 88518135944 No Longer Active Renzo Thornton DO Active PREDNISONE 20 MG TAB 2 tabs daily for 3 days, 1 tab daily for 3 days, 1/2 tab daily for 2 days PREDNISONE 12052193824 No Longer Active Vishal Hui MD Active CEFDINIR 300 MG CAPS by mouth twice a day CEFDINIR 05442334445 No Longer Active Vishal Hui MD Active LANSOPRAZOLE 30 MG CPDR 1 cap po qd LANSOPRAZOLE 88276231777 No Longer Active Vishal Hui MD Active BACLOFEN 20 MG TABS 1 tab po tid BACLOFEN 72668947493 No Longer Active Vishal Hui MD Active ADVAIR DISKUS 250-50 MCG/DOSE AEPB 1 puff BID ADVAIR DISKUS 250-50 MCG/DOSE AEPB FLUTICASONE-SALMETEROL Inactive ESCITALOPRAM OXALATE 20 MG TABS 1 tab po qd ESCITALOPRAM OXALATE 20 MG TABS 358880 ESCITALOPRAM OXALATE Inactive ATENOLOL 25 MG TABS 1 tab po qd ATENOLOL 25 MG TABS 678821 ATENOLOL Inactive BENZTROPINE MESYLATE 1 MG TABS 1 tab po qd BENZTROPINE MESYLATE 1 MG TABS 428527 BENZTROPINE MESYLATE Inactive BUSPIRONE HCL 15 MG TABS 1 tab po TID BUSPIRONE HCL 15 MG TABS 944134 BUSPIRONE HCL Inactive LEVOFLOXACIN 500 MG TABS 1 tab po qd LEVOFLOXACIN 500 MG TABS 770532 LEVOFLOXACIN Inactive PREDNISONE 20 MG TABS 1 tab po qd PREDNISONE 20 MG TABS 260562 PREDNISONE Inactive MIRALAX POWD 1 capfull once daily MIRALAX POWD 282675 POLYETHYLENE GLYCOL 3350 Inactive VERAPAMIL HCL ER 180 MG CR-TABS 1 tab po bid VERAPAMIL HCL ER 180 MG CR-TABS VERAPAMIL HCL Inactive LORATADINE 10 MG TABS 1 tab po qd LORATADINE 10 MG TABS 366448 LORATADINE Inactive LYRICA 50 MG CAPS 1 tab po TID LYRICA 50 MG CAPS PREGABALIN Inactive ZALEPLON 10 MG CAPS 1 cap po every other night ZALEPLON 10 MG CAPS 291182 ZALEPLON Inactive SAPHRIS 5 MG SUBL 1 tab po qd SAPHRIS 5 MG SUBL ASENAPINE MALEATE Inactive TRAZODONE HCL 50 MG TABS 1/2 tab po qd prn for anxiety TRAZODONE HCL 50 MG TABS 664954 TRAZODONE HCL Inactive LATUDA 20 MG TABS Take one by mouth daily LATUDA 20 MG TABS LURASIDONE HCL Inactive LISINOPRIL 20 MG TABS 1 tab po qd LISINOPRIL 20 MG TABS 578109 LISINOPRIL Inactive SAPHRIS 10 MG SUBL 1 [...] twice daily BACTRIM DS 800-160 MG TAB 593128 TRIMETHOPRIM-SULFAMETHOXAZOLE Inactive MULTIVITAMINS CAPS Take one by mouth daily MULTIVITAMINS CAPS MULTIPLE VITAMIN Inactive MELATONIN 3 MG CAPS 2 po q hs MELATONIN 3 MG CAPS 19950526 MELATONIN Inactive KEFLEX 500 MG ORAL CAPS 1 cap QID by mouth KEFLEX 500 MG ORAL CAPS 462401 CEPHALEXIN Inactive CLINDAMYCIN HCL 150 MG CAPS 1 four times a day CLINDAMYCIN HCL 150 MG CAPS 349870 CLINDAMYCIN HCL Inactive DIFLUCAN 150 MG TAB 1 tablet by mouth daily DIFLUCAN 150 MG TAB 055136 FLUCONAZOLE Inactive PROZAC 20 MG CAP Take one by mouth daily PROZAC 20 MG CAP 050033 FLUOXETINE HCL Inactive IBUPROFEN 600 MG TAB 1 po TID PRN IBUPROFEN 600 MG TAB 394891 IBUPROFEN Inactive VYVANSE 40 MG CAPS 1 daily, VYVANSE 40 MG CAPS LISDEXAMFETAMINE DIMESYLATE Inactive TRAZODONE HCL 100 MG TAB take 1 at bedtime TRAZODONE HCL 100 MG TAB 472856 TRAZODONE HCL Inactive AMITRIPTYLINE HCL 100 MG TAB one at hs AMITRIPTYLINE HCL 100 MG TAB 346892 AMITRIPTYLINE HCL Inactive AMLODIPINE BESYLATE 5 MG TABS 1 tablet by mouth daily AMLODIPINE BESYLATE 5 MG TABS 689314 AMLODIPINE BESYLATE Inactive LATUDA 80 MG TABS Take one by mouth daily LATUDA 80 MG TABS LURASIDONE HCL Inactive SAPHRIS 5 MG SUBL 1 po bid SAPHRIS 5 MG SUBL ASENAPINE MALEATE Inactive PREDNISONE 20 MG TAB 2 tabs daily for 4 days, 1 tab daily for 4 days, 1/2 tab daily for 4 days PREDNISONE 20 MG TAB 435975 PREDNISONE Inactive AMBIEN 5 MG ORAL TABS 1 tab at bedtime AMBIEN 5 MG ORAL TABS 967754 ZOLPIDEM TARTRATE Inactive PROZAC 20 MG ORAL CAPS 1 tab daily PROZAC 20 MG ORAL CAPS 592499 FLUOXETINE HCL Inactive ABILIFY 15 MG ORAL TABS 1 tab daily ABILIFY 15 MG ORAL TABS 412103 ARIPIPRAZOLE Inactive METOPROLOL TARTRATE 50 MG TAB 1 po bid METOPROLOL TARTRATE 50 MG TAB 591374 METOPROLOL TARTRATE Inactive TRAMADOL HCL 50 MG TABS 1-2 po TID PRN Pain TRAMADOL HCL 50 MG TABS 612392 TRAMADOL HCL Inactive PIROXICAM 20 MG CAPS 1 cap po qd PRN Pain PIROXICAM 20 MG CAPS 956144 PIROXICAM Inactive MINIPRESS 2 MG CAPS 4 cap po at night MINIPRESS 2 MG CAPS 795186 PRAZOSIN HCL Inactive MIRALAX PACK 1 po qd PRN Constipation MIRALAX PACK 226662 POLYETHYLENE GLYCOL 3350 Inactive METOPROLOL TARTRATE 25 MG ORAL TABS 1/2 tablet twice daily for heart rate and blood pressure METOPROLOL TARTRATE 25 MG ORAL TABS 005485 METOPROLOL TARTRATE Inactive VALIUM 5 MG TAB Take 1-2 tablets daily VALIUM 5 MG TAB 734810 DIAZEPAM Inactive FLAGYL 500 MG TAB 1 tablet by mouth bid FLAGYL 500 MG TAB 126879 METRONIDAZOLE Inactive DICLOFENAC POTASSIUM TABS Take 1 tablet twice a day (pt. is not sure of the dose.) DICLOFENAC POTASSIUM TABS DICLOFENAC POTASSIUM TABS Inactive ZITHROMAX Z-EARNEST 250 MG TABS 2 today and then 1 daily for 4 days ZITHROMAX Z-EARNEST 250 MG TABS 7753914 AZITHROMYCIN Inactive PREDNISONE 20 MG TABS 2 daily for 5 days then 1 daily for 5 days PREDNISONE 20 MG TABS 213488 PREDNISONE Inactive PROAIR HFA 108 (90 BASE) MCG/ACT AERS 2 puffs four times a day as needed 2015 PROAIR HFA 108 (90 BASE) MCG/ACT AERS ALBUTEROL SULFATE Inactive HYDROCODONE-ACETAMINOPHEN 5-325 MG TABS 1 to 2 four times a day as needed for pain use until can be seen by specialist HYDROCODONE- ACETAMINOPHEN 5-325 MG TABS 415702 HYDROCODONE-ACETAMINOPHEN Inactive TESSALON PERLES 100 MG CAP 1 to 2 tablets by mouth 3 times daily as needed for cough TESSALON PERLES 100 MG CAP 796213 BENZONATATE Inactive CHANTIX STARTING MONTH EARNEST 0.5 [...] Pain 2015 DICLOFENAC SODIUM 50 MG TBEC 654641 DICLOFENAC SODIUM Inactive TOPAMAX 50 MG ORAL TABS 1 tab twice daily TOPAMAX 50 MG ORAL TABS 714464 TOPIRAMATE Inactive VIIBRYD 10 MG ORAL TABS Take 1 tablet once a day VIIBRYD 10 MG ORAL TABS VILAZODONE HCL Inactive LEVOFLOXACIN 500 MG ORAL TABS po daily LEVOFLOXACIN 500 MG ORAL TABS 240395 LEVOFLOXACIN Inactive METHYLPREDNISOLONE 4 MG ORAL TABS po daily METHYLPREDNISOLONE 4 MG ORAL TABS 432174 METHYLPREDNISOLONE Inactive OXYCODONE HCL ER 10 MG ORAL T12A 1/2 tab by mouth every 4 hours prn OXYCODONE HCL ER 10 MG ORAL T12A OXYCODONE HCL Inactive FLAGYL 500 MG TAB 1 tablet by mouth bid FLAGYL 500 MG TAB 256820 METRONIDAZOLE Inactive MONISTAT 7 COMBO PACK WOODROW 100 & 2 MG-% (9GM) VAG KIT 1 applicatorful per vagina q pm x 7 MONISTAT 7 COMBO PACK WOODROW 100 & 2 MG-% (9GM) VAG KIT MICONAZOLE NITRATE Inactive BACTRIM DS 800-160 MG TABS 1 twice a day BACTRIM DS 800-160 MG TABS 212033 SULFAMETHOXAZOLE-TRIMETHOPRIM Inactive TRAMADOL HCL 50 MG TABS 1/2-1 tab TID PRN TRAMADOL HCL 50 MG TABS 035330 TRAMADOL HCL Inactive ABILIFY MAINTENA 400 MG IM SUSR 400mg injection every 26 days KENN MAINTENA 400 MG IM SUSR ARIPIPRAZOLE Inactive KLONOPIN 1 MG ORAL TABS 1 tab po TID KLONOPIN 1 MG ORAL TABS 283599 CLONAZEPAM Inactive ADVAIR DISKUS 250-50 MCG/DOSE INH AEPB 1 puff twice a day for asthma ADVAIR DISKUS 250-50 MCG/DOSE INH AEPB FLUTICASONE- SALMETEROL Inactive BENADRYL 25 MG CAP 4 po at bedtime for insomnia BENADRYL 25 MG CAP DIPHENHYDRAMINE HCL Inactive PREDNISONE 20 MG TABS 2 daily for 5 days then 1 daily for 5 days PREDNISONE 20 MG TABS 799372 PREDNISONE Inactive HYDROCODONE-ACETAMINOPHEN 5-325 MG ORAL TABS 1 tab two times a day HYDROCODONE-ACETAMINOPHEN 5-325 MG ORAL TABS 475320 HYDROCODONE-ACETAMINOPHEN Inactive ZITHROMAX Z-EARNEST 250 MG TABS 2 today and then 1 daily for 4 days ZITHROMAX Z-EARNEST 250 MG TABS 5025377 AZITHROMYCIN Inactive GUAIFENESIN-CODEINE 100-10 MG/5ML SYRP 5ml every 4 to 6 hours as needed for cough GUAIFENESIN-CODEINE 100-10 MG/5ML SYRP 388931 GUAIFENESIN-CODEINE Inactive HALOPERIDOL 10 MG ORAL TABS 1 tab q.d HALOPERIDOL 10 MG ORAL TABS 883698 HALOPERIDOL Inactive ASPIRIN 325 MG ORAL TABS 1 tab q.d ASPIRIN 325 MG ORAL TABS 023646 ASPIRIN Inactive FLUTICASONE PROPIONATE 50 MCG/ACT SUSP 2 sprays each nostril daily before bed. FLUTICASONE PROPIONATE 50 MCG/ACT SUSP 2327437 FLUTICASONE PROPIONATE Inactive ZOFRAN 4 MG TABS 1 po q6hr PRN Nausea ZOFRAN 4 MG TABS 951364 ONDANSETRON HCL Inactive CEFDINIR 300 MG CAPS by mouth twice a day CEFDINIR 300 MG CAPS 009269 CEFDINIR Inactive PREDNISONE 20 MG TAB 2 tabs daily for 3 days, 1 tab daily for 3 days, 1/2 tab daily for 2 days PREDNISONE 20 MG TAB 488945 PREDNISONE Inactive BACTRIM DS 800-160 MG TABS 1 po BID x 7 days BACTRIM DS 800-160 MG TABS 19820521 SULFAMETHOXAZOLE-TRIMETHOPRIM Inactive DIFLUCAN 150 MG TABS 1 pill every other day x 2 doses DIFLUCAN 150 MG TABS 596251 FLUCONAZOLE Inactive BACTRIM DS 800-160 MG TABS 1 pill by mouth twice daily BACTRIM DS 800-160 MG TABS 19820521 SULFAMETHOXAZOLE-TRIMETHOPRIM Inactive KEFLEX 500 MG CAP 1 po TID x 10 days KEFLEX 500 MG CAP 532081 CEPHALEXIN Inactive Advance Directives Directive Description Start [...] % 11.0-15.0 platelet count 443 THOUSAND/UL 10*3/mm3 390-611 6843/03/01 mean platelet volume 8.2 fL 7.5-12.5 Lab [...] 369 10^3/MM^3 10*3/mm3 142-424 Lab Report: Chlamydia/GC APTIMA/[id number] - Lab chlamydia DNA probe NOT DETECTED NOT DETECTED Lab Report: Chlamydia/GC APTIMA/[id number] - Microbiology Neisseria gonorrhoeae DNA probe NOT DETECTED NOT DETECTED Lab Report: Chlamydia/GC APTIMA/10228, Urinalysis, Complete, with Reflex ... - Lab chlamydia DNA probe NOT DETECTED NOT DETECTED Lab Report: Chlamydia/GC APTIMA/[id number], Urinalysis, Complete, with Reflex ... - Microbiology Neisseria gonorrhoeae DNA probe NOT DETECTED NOT DETECTED Lab Report: Chlamydia/GC APTIMA/[id number], Urinalysis, Complete, with Reflex ... - Urinalysis microalbumin/total urine volume 2 mg/L Units converted. See lab report for original value. microalbumin/creatinine ratio, urine 9 MCG/MG CREAT mg/L <30 Lab Report: Comp. Metabolic Panel - Chemistry sodium, serum 142 mmol/L 092-302 8307/06/08 carbon dioxide, venous blood 27.6 mmol/L 21.0-32.0 potassium, serum 4.0 mmol/L 3.5-5.2 chloride, serum 105 mmol/L 98-107 blood glucose 95 mg/dL 65-110 urea nitrogen, blood 8 mg/dL 7-18 creatinine, serum 0.75 mg/dL 0.55-1.30 alanine aminotransferase (SGPT), serum 49 U/L 12-78 aspartate aminotransferase (SGOT), serum 28 U/L 15-37 calcium, serum 9.4 mg/dL 8.5-10.1 bilirubin, serum, total 0.30 mg/dL 0.00-1.00 sodium, serum 140 mmol/L 331-647 7574/08/08 carbon dioxide, venous blood 33.7 mmol/L 21.0-32.0 [...] mg/dL Encounters Code Encounter Date Provider Facility CPT-05155 Level 3 Est. Patient 15:28:23 [employer] Suzan Boo [facility] CPT-24655 Level 4 Est. Patient 10:20:54 [employer] Suzan Boo [facility] CPT-21396 Level 3 Est. Patient 11:47:37 [employer] Ahmet Carbajal MD [facility] CPT-43421 Level 3 Est. Patient 10:40:11 [employer] Ahmet Carbajal MD [facility] CPT-90485 Level 3 Est. Patient 15:07:06 [employer] Neeraj Collins MD [facility] CPT-70611 Level 4 Est. Patient 14:45:00 [employer] Amhet Carbajal MD [facility] CPT-50555 Level 3 Est. Patient 13:59:59 CDT Luigi Martínez [facility] CPT-15945 Level 3 Est. Patient 18:18:53 CDT Neeraj Collins MD [facility] CPT-69619 Level 3 Est. Patient 15:50:44 CDT Vishal Hui MD [facility] CPT-02335 Level 3 Est. Patient 11:36:17 CDT Ahmet Carbajal MD [facility] CPT-82999 Level 3 Est. Patient 13:29:16 CDT Vishal Hui MD [facility] CPT-24015 Level 3 Est. Patient 14:27:52 CDT Neeraj Collins MD [facility] CPT-62452 Level 3 Est. Patient 08:56:03 CDT Luigi Martínez [facility] CPT-31722 Level 4 Est. Patient 12:11:48 CDT Fabiola Johnson [facility] CPT-35743 Level 3 New Patient 16:53:37 CDT Albert Caldera MD [facility] CPT-17780 Level 3 Est. Patient 11:25:49 CDT Renzo Thornton DO [facility] CPT-96422 Level 3 Est. Patient 15:22:01 CDT Ahmet Carbajal MD [facility] CPT-24986 Level 4 Est. Patient 09:00:51 [employer] Vishal Hui MD [facility] CPT-78493 Level 3 Est. Patient 11:37:33 [employer] Vishal Hui MD [facility] CPT-82789 Level 3 Est. Patient 08:41:09 [employer] Vishal Hui MD [facility] CPT-86783 Level 4 Est. Patient 10:19:35 [employer] Vishal Hui MD [facility] CPT-75913 Level 3 Est. Patient 13:35:45 CDT Vishal Hui MD [facility] CPT-88133 Level 4 Est. Patient 10:08:37 CDT Vishal Hui MD [facility] CPT-67877 Level 3 Est. Patient 11:22:10 CDT Vishal Hui MD [facility] CPT-31129 Level 3 Est. Patient 11:03:32 CDT Sahara Rodriguez MD, PhD [facility] CPT-54123 Level 3 Est. Patient 09:41:35 CDT Vishal Hui MD [facility] CPT-64876 Level 3 Est. Patient 12:00:41 CDT Neeraj Collins MD [facility] CPT-24384 Level 3 Est. Patient 09:16:24 CDT Vishal Hui MD [facility] CPT-32558 Level 4 Est. Patient 13:59:09 CDT Neeraj Collins MD [facility] CPT-96616 Level 3 Est. Patient 15:19:43 CDT Renzo Thornton [facility] CPT-57240 Level 3 Est. Patient 18:10:26 CDT Sahara Rodriguez MD [facility]-86893 Level 3 Est. Patient 14:49:50 CDT Vishal Hui MD [facility] CPT-99118 Level 4 Est. Patient 18:41:46 CDT Neeraj Collins MD [facility] CPT-14794 Level 4 Est. Patient 09:18:38 [employer] Vishal Hui MD [facility] CPT-06394 Level 3 Est. Patient 14:43:55 [employer] Vishal Hui MD [facility] CPT-20099 Level 3 Est. Patient 15:26:33 [employer] Sahara Rodriguez MD [facility] CPT-84907 Level 3 Est. Patient 10:32:14 [employer] Vishal Hui MD [facility] CPT-44052 Level 3 Est. Patient 15:12:52 [employer] Vishal Hui MD [facility] CPT-59370 Level 4 Est. Patient 09:19:27 CDT Vishal Hui MD [facility] CPT-86260 Level 3 Est. Patient 15:53:00 CDT Renzo Thornton [facility] CPT-73931 Level 3 Est. Patient 15:50:30 CDT Renzo Thornton [facility] CPT-41815 Level 3 Est. Patient 16:55:24 CDT Vishal Hui MD [facility] Procedures Code Procedure Name Date Entry Date Standard Description CPT-G0439 [facility] Annual Wellness Exam 09:30:58 [employer] CPT-20377 TSH - LAB USE ONLY 08:50:26 [employer] CPT-31354 CBC - LAB USE ONLY 08:50:26 [employer] CPT-75326 Venipuncture Draw Fee 08:50:26 [employer] CPT-58466 Abx/Therapy Injection 17:34:30 [employer] CPT-10779 Nexplanon Removal with Reinsertion 14:09:32 CDT CPT-J7307 Nexplanon (Implant) 14:09:32 CDT CPT-OV Office Visit 14:09:32 CDT CPT-56581 UA w micro - LAB USE ONLY 16:21:13 CDT CPT-11409 Wet Mount - LAB USE ONLY 16:21:13 CDT CPT-04253 First Vx - Ix admin for Medicare patients 14:37:47 CDT CPT-82401 Fluzone Preservative Free Intramuscular Suspension 14:37 :47 CDT CPT-52112 Abx/Therapy Injection 13:54:22 CDT CPT-04595 Abx/Therapy Injection 08:47:09 CDT CPT-78742 Abx/Therapy Injection 13:29:56 CDT CPT-80107 Abx/Therapy Injection 08:36:16 CDT CPT-21222 Wet Mount - LAB USE ONLY 17:44:58 CDT CPT-57174 UA w micro - LAB USE ONLY 17:44:58 CDT CPT-26427 CMP - LAB USE ONLY 17:44:58 CDT CPT-10868 Venipuncture Draw Fee 17:44:58 CDT CPT-38207 Cervical Min 4V - XRAY USE ONLY 09:01:40 CDT CPT-39496 Chest 2V Frontal and Lat - XRAY USE ONLY 11:06:31 CDT CPT-43746 EKG Trac and Interp - XRAY USE ONLY 11:31:43 CDT 08/26 CPT-J3420 Vitamin B12 1000mcg (Cyanocobalamin) 08:10:26 [employer] 04/12 CPT-62432 Abx/Therapy Injection 08:10:26 [employer] CPT-G0438 Initial Annual Wellness Exam 19:01:01 [employer] CPT-J3420 Vitamin B12 1000mcg (Cyanocobalamin) 16:57:46 CDT 08/14 CPT-86289 Recombivax HB Injection Suspension 5 MCG/0.5ML 08:37:50 [employer] CPT-96677 Immunization Single Admin 08:37:50 [employer] CPT-J3420 Vitamin B12 1000mcg (Cyanocobalamin) 08:32:16 [employer] 03/11 CPT-05139 Abx/Therapy Injection 08:32:16 [employer] CPT-12758 Chest 2V Frontal and Lat 11:46:38 [employer] CPT-86702 Venipuncture Draw Fee 09:12:45 [employer] CPT-J3420 Vitamin B12 1000mcg (Cyanocobalamin) 08:50:15 [employer] 02/08 CPT-73598 Abx/Therapy Injection 08:50:15 [employer] CPT-Cryo Cryotherapy 10:19:35 [employer] CPT-000 Give Appropriate Flu Vaccine 09:22:16 CDT CPT-J3420 Vitamin B12 1000mcg (Cyanocobalamin) 19:08:57 CDT 01/11 CPT-05085 Abx/Therapy Injection 19:08:57 CDT CPT-J3420 Vitamin B12 1000mcg (Cyanocobalamin) 08:19:08 CDT 12/11 CPT-18420 Abx/Therapy Injection 08:19:08 CDT CPT-J3420 Vitamin B12 1000mcg (Cyanocobalamin) 14:48:00 CDT 11/09 CPT-03743 Abx/Therapy Injection 14:47:59 CDT CPT-J3420 Vitamin B12 1000mcg (Cyanocobalamin) 08:34:04 CDT 10/09 CPT-41889 Abx/Therapy Injection 08:34:04 CDT CPT-J3420 Vitamin B12 1000mcg (Cyanocobalamin) 09:18:52 CDT 09/11 CPT-28610 Abx/Therapy Injection 09:18:52 CDT CPT-J3420 Vitamin B12 1000mcg (Cyanocobalamin) 08:35:44 CDT 09/04 CPT-26457 Abx/Therapy Injection 08:35:44 CDT CPT-98742 Immunization Single Admin 11:07:16 CDT CPT-10618 Hepatitis B adult IM 11:07:16 CDT CPT-J3420 Vitamin B12 1000mcg (Cyanocobalamin) 11:00:49 CDT 08/28 CPT-J1040 Depo Medrol 80 mg (Methyl Prednisolone Acetate) 11:00: 49 CDT CPT-95303 Abx/Therapy Injection 11:00:49 CDT CPT-J1040 Depo Medrol 80 mg (Methyl Prednisolone Acetate) 09:16: 23 CDT CPT-J3420 Vitamin B12 1000mcg (Cyanocobalamin) 08:27:05 CDT 08/20 CPT-13379 Abx/Therapy Injection 08:27:05 CDT CPT-37332 Recombivax HB Injection Suspension 5 MCG/0.5ML 10:00:41 CDT CPT-77248 Administration single or combination vaccine inc oral 10 :00:41 CDT CPT-86170 Sono transvag pelvis non OB uterus ovaries cervix 16:36: 57 CDT CPT-50317 LS spine comp w obliq 09:50:55 [employer] CPT-72148 Abd compl w upright 09:50:55 [employer] CPT-J1100 Decadron 4mg (Dexamethasone) 15:51:24 [employer] CPT-J1030 Depo Medrol 40 mg (Methyl Prednisolone Acetate) 15:51: 24 [employer] CPT-88269 Abx/Therapy Injection 15:51:24 [employer] CPT-J1100 Decadron 4mg (Dexamethasone) 15:26:33 [employer] CPT-J1030 Depo Medrol 40 mg (Methyl Prednisolone Acetate) 15:26: 33 [employer] CPT-85610 Sono retroperitoneal complete kidneys and bladder 17:15: 30 CDT CPT-36096 Abd compl w upright 16:09:25 CDT CPT-J1100 Decadron 8mg (Dexamethasone) 17:07:57 CDT CPT-53677 Abx/Therapy Injection 17:07:57 CDT CPT-J1100 Decadron 8mg (Dexamethasone) 16:55:24 CDT CPT-76377 Chest 2V Frontal and Lat 16:32:44 CDT
--- OUTSIDE RECORDS SUMMARY | 2016-11-04 17:55 | XMS REPORT ---
Author Author [facility] Medical Staff Organization [facility] Address [address] [place], [place] [id number] Phone [phone] Care Team Providers Care Pump[place] Name Role Phone DENICE OCHOA MD PP [phone] Summary purpose TRANSITION OF CARE AUTO GENERATION [...] tests and/or laboratory data RESULTS Routine Urinalysis [id number]:35:00 Result Normal Range Units Color YELLOW Clarity Cloudy Specific [place] 1.022 1.003-1.035 pH 5.5 4.5-8.0 Glucose NEGATIVE Bilirubin NEGATIVE Ketones NEGATIVE Protein NEGATIVE Urobilinogen 0.2 0-0.2 E.U./dL Nitrites NEGATIVE Blood NEGATIVE Leukocytes NEGATIVE WBCs 5-10 RBCs 0-5 Squamous Epithelial 2+ Bacteria 2+ Drug Screen In House [id number]:35:00 Result Normal Range Units Amphetamine AB Positive [...] Tricyclic Antidepressants Negative Negative Therapeutic Drug Monitoring :45:00 Result Normal Range Units Acetaminophen L 0.0 10.0-30.0 ug/ml Salicylate L 0.7 2.0-20.0 mg/dl Chemistry :45:00 Result Normal Range Units Sodium 141 134-145 mEq/l Potassium 3.7 3.5-5.1 mEq/l Chloride H 109 98-107 mEq/l CO2 23.6 22-28 mEq/l Glucose H 138 70-105 mg/dl BUN 7 7-18 mg/dl Creatinine 0.96 0.6-1.0 mg/dl Calcium 8.5 8.4-10.2 mg/dl TP - Total Protein 6.6 6.0-8.3 g/dl Albumin 3.6 3.5-5 g/dl Bilirubin - Total 0.2 0.1-1.0 mg/dl AST 34 10-42 IU/L ALT H 77 12-65 IU/L ALP H 90 25-72 IU/L Osmolality 281.4 280-300 mOsm/L Albumin/Globulin Ratio 1.2 0-8 Anion GAP 8.4 8-16 BUN/Creatinine Ratio L 7.3 10-20 Estimated GFR 69 >=60 mL/min/1.7 Hematology :45:00 Result Normal Range Units WBC 9.7 4.8-10.8 103/uL RBC 4.2 4.2-5.4 106/uL HGB 13.0 12.0-16.0 g/dl HCT 38.2 36.9-47.0 % MCV 91.8 81-99 FL MCH H 31.3 27-31 pg MCHC 34.0 33-37 g/dl RDW 11.9 11.5-15.5 % PLT 346 130-400 103/uL MPV 10.2 7.3-10.4 FL Body Fluid :35:00 Result Normal Range Units pH 5.5 4.5-8.0 Radiology Results :45:00 Result Normal Range Units MPV 10.2 7.3-10.4 FL History of procedures Procedure Code Code Type Description Date Performed Performing Physician 58207 CPT-4 ROUTINE VENIPUNCTURE 07-01-2015 MANAS SCHRADER 83535 CPT-4 COMPREHEN METABOLIC PANEL 07-01-2015 MANAS SCHRADER 15435 CPT-4 ANALGESICS NON-OPIOID 1 OR 2 07-01-2015 MANAS SCHRADER 73811 CPT-4 ANALGESICS NON-OPIOID 1 OR 2 07-01-2015 MANAS SCHRADER 10727 CPT-4 URINALYSIS AUTO W/SCOPE 07-01-2015 MANAS SCHRADER 06030 CPT-4 COMPLETE CBC AUTOMATED 07-01-2015 MANAS SCHRADER 66924 CPT-4 EMERGENCY DEPT VISIT 07-01-2015 MANAS SCHRADER 22324 CPT-4 EMERGENCY DEPT VISIT 07-01-2015 MANAS SCHRADER Functional status Functional Status Finding Observation Time Abdomen Appearance obese [id number]:45 Abdomen non-tender 34-22-264129:45 Vick no 31-50-179246:45 Urination normal :45 Quality sym/unlabored :45 Cough absent :45 Secretions no :45 Airway natural :45 Chest Tube no :45 Oxygen no :35 Temp >100.4 no :45 Temp <96.8 no :45 Chills with rigors no :45 HR > 90bpm no :45 Respirations > 20 no :45 Systolic <90 no :45 headache stiff neck no :45 Nursing Note pt exited out ambulance door in care of CPD RICHARD. pt belongings and med in care of pt. [id number]:42 Vital signs Type Value Date Respiration Rate 18breaths per minute :35 Pulse 77beats per minute :35 Oxygen Saturation 98% :35 BP Systolic 99mmHg :35 BP Diastolic 68mmHg :35 Temperature 97.9F 74-49-572552:35 Social history Type Value Smoking Status CURRENT EVERY DAY SMOKER Treatment Plan No treatment plan text is available for this visit. Hospital discharge instructions Dismissal Condition good Disposition on DC home DC Inst/Educ Give yes Med/Side Effects Rev yes Flu Vac 2014
--- OUTSIDE RECORDS SUMMARY | 2016-11-04 17:57 | XMS REPORT | Clinical Summary ---
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 FLUTICASONE PROPIONATE HFA 37169804761 Active Renzo Thornton DO Active TROPICAMIDE 0.5 % OPHTH SOLN 1 drop PRN eye spasms TROPICAMIDE 12704357122 Active Samantha Stephna RMA Active RISPERDAL 4 MG ORAL TABS 1 tab at bedtime RISPERIDONE 90801276711 Active Samantha Stephan RMA Active LEVAQUIN 500 MG TABS 1 daily for infection LEVOFLOXACIN 33153159889 Active Suzan Boo APRN Active TESSALON PERLES 100 MG CAPS 1 three times a day as needed for cough BENZONATATE 88087832057 Active Suzan Boo APRN Active ZOFRAN 4 MG TABS 1 po q6hr PRN Nausea ONDANSETRON HCL No Longer Active Suzan Boo APRN Active FLUTICASONE PROPIONATE 50 MCG/ACT SUSP 2 sprays each nostril daily before bed. FLUTICASONE PROPIONATE 91244431409 No Longer Active Suzan Boo APRN Active ASPIRIN 325 MG ORAL TABS 1 tab q.d ASPIRIN 12576526705 No Longer Active Suzan Boo APRN Active HALOPERIDOL 10 MG ORAL TABS 1 tab q.d HALOPERIDOL 15902472295 No Longer Active Suzan Boo APRN Active GUAIFENESIN-CODEINE 100-10 MG/5ML SYRP 5ml every 4 to 6 hours as needed for cough GUAIFENESIN-CODEINE 26573186756 No Longer Active Suzan Boo APRN Active ZITHROMAX Z-EARNEST 250 MG TABS 2 today and then 1 daily for 4 days AZITHROMYCIN 29376107088 No Longer Active Suzan Boo APRN Active PREDNISONE 10 MG TABS 2 daily for 5 days then 1 daily for 5 days PREDNISONE 77531738715 Active Suzan Boo APRN Active CLONAZEPAM 1 MG ORAL TABS 1 twice a day and an additional 1 tablet every other day as needed for pseudoseizures or anxiety CLONAZEPAM 89645741813 Active Ahmet Carbajal MD Active HYDROCODONE-ACETAMINOPHEN 5-325 MG ORAL TABS 1 tab two times a day HYDROCODONE-ACETAMINOPHEN 55886315370 No Longer Active Ahmet Carbajal MD Active LAMICTAL 100 MG ORAL TABS 1 tab 2 times qd. LAMOTRIGINE 13941152891 Active Ahmet Carbajal MD Active PREDNISONE 20 MG TABS 2 daily for 5 days then 1 daily for 5 days PREDNISONE 51798498338 No Longer Active Ahmet Carbajal MD Active FLUTICASONE PROPIONATE 50 MCG/ACT SUSP 1 to 2 sprays each nostril daily for allergies FLUTICASONE PROPIONATE 80314609614 Active Tila Nicolas Active BENADRYL 25 MG CAP 4 po at bedtime for insomnia DIPHENHYDRAMINE HCL 99920305445 No Longer Active Ahmet Carbajal MD Active ADVAIR DISKUS 250-50 MCG/DOSE INH AEPB 1 puff twice a day for asthma FLUTICASONE-SALMETEROL 81274434231 No Longer Active Ahmet Carbajal MD Active KLONOPIN 1 MG ORAL TABS 1 tab po TID CLONAZEPAM 07014016377 No Longer Active Ahmet Carbajal MD Active ABILIFY MAINTENA 400 MG IM SUSR 400mg injection every 26 days ARIPIPRAZOLE 40170074247 No Longer Active Ahmet Carbajal MD Active TRAMADOL HCL 50 MG TABS 1/2-1 tab TID PRN TRAMADOL HCL 88375208094 No Longer Active Ahmet Carbajal MD Active BACTRIM DS 800-160 MG TABS 1 twice a day SULFAMETHOXAZOLE- TRIMETHOPRIM 70076982389 No Longer Active Ahmet Carbajal MD Active PROAIR HFA 108 (90 BASE) MCG/ACT AERS 2 puffs four times a day as needed 2015 ALBUTEROL SULFATE 71176006932 Active Ahmet Carbajal MD Active EQ NICOTINE 21 MG/24HR TRANS PT24 Apply daily to stop smoking NICOTINE 24630293724 Active Ahmet Carbajal MD Active MONISTAT 7 COMBO PACK WOODROW 100 & 2 MG-% (9GM) VAG KIT 1 applicatorful per vagina q pm x 7 MICONAZOLE NITRATE 76693186966 No Longer Active Ahmet Carbajal MD Active FLAGYL 500 MG TAB 1 tablet by mouth bid METRONIDAZOLE 03553834561 No Longer Active Ahmet Carbajal MD Active OXYCODONE HCL ER 10 MG ORAL T12A 1/2 tab by mouth every 4 hours prn OXYCODONE HCL 51767004547 No Longer Active Ahmet Carbajal MD Active METHYLPREDNISOLONE 4 MG ORAL TABS po daily METHYLPREDNISOLONE 97473724798 No Longer Active Ahmet Carbajal MD Active LEVOFLOXACIN 500 MG ORAL TABS po daily LEVOFLOXACIN 85587667377 No Longer Active Ahmet Carbajal MD Active VIIBRYD 10 MG ORAL TABS Take 1 tablet once a day VILAZODONE HCL 53956033030 No Longer Active Ahmet Carbajal MD Active TOPAMAX 50 MG ORAL TABS 1 tab twice daily TOPIRAMATE 27385691411 No Longer Active Ahmet Carbajal MD Active DICLOFENAC SODIUM 50 MG TBEC 1 tablet by mouth four times daily PRN Pain 2015 DICLOFENAC SODIUM 77040777401 No Longer Active Ahmet Carbajal MD Active ADZENYS XR-ODT 6.3 MG ORAL TBED 1 tab po daily for ADHD AMPHETAMINE 29604395051 No Longer Active Ahmet Carbajal MD Active CHANTIX 1 MG TABS 1 twice a day to help quit smoking VARENICLINE TARTRATE 48590981920 No Longer Active Dipika Burgos MD Active CHANTIX STARTING MONTH EARNEST 0.5 MG X 11 & 1 MG X 42 TABS take as directed 2015 VARENICLINE TARTRATE 13981764447 No Longer Active Dipika Burgos MD Active TESSALON PERLES 100 MG CAP 1 to 2 tablets by mouth 3 times daily as needed for cough BENZONATATE 75738728845 No Longer Active Luigi Martínez APRN Active IMITREX 50 MG ORAL TABS 0.5 po x 1 PRN Headache. May repeat dose x 1 in 2 hours if needed SUMATRIPTAN SUCCINATE 12575988471 Active Ahmet Carbajal MD Active HYDROCODONE-ACETAMINOPHEN 5-325 MG TABS 1 to 2 four times a day as needed for pain use until can be seen by specialist HYDROCODONE- ACETAMINOPHEN 38178873350 No Longer Active Vishal Hui MD Active PROAIR HFA 108 (90 BASE) MCG/ACT AERS 2 puffs four times a day as needed 2015 ALBUTEROL SULFATE 50990164573 No Longer Active Vishal Hui MD Active PREDNISONE 20 MG TABS 2 daily for 5 days then 1 daily for 5 days PREDNISONE 93316179091 No Longer Active Vishal Hui MD Active ZITHROMAX Z-EARNEST 250 MG TABS 2 today and then 1 daily for 4 days AZITHROMYCIN 66363771626 No Longer Active Vishal Hui MD Active DICLOFENAC POTASSIUM TABS Take 1 tablet twice a day (pt. is not sure of the dose.) DICLOFENAC POTASSIUM TABS 79883380682 No Longer Active Vishal Hui MD Active VERAPAMIL HCL ER 120 MG ORAL CR-TABS Take 1 tablet by mouth twice a day. VERAPAMIL HCL 89655913960 Active Vishal Hui MD Active FLAGYL 500 MG TAB 1 tablet by mouth bid METRONIDAZOLE 04398795107 No Longer Active Vishal Hui MD Active VALIUM 5 MG TAB Take 1-2 tablets daily DIAZEPAM 30844720714 No Longer Active Fabiola Johnson APRN Active METOPROLOL TARTRATE 25 MG ORAL TABS 1/2 tablet twice daily for heart rate and blood pressure METOPROLOL TARTRATE 96186872298 No Longer Active Fabiola Johnson APRN Active MIRALAX ORAL POWD 17GMS DAILY IN WATER POLYETHYLENE GLYCOL 3350 62718013167 Active TAMARA Casey Active MIRALAX PACK 1 po qd PRN Constipation POLYETHYLENE GLYCOL 3350 10374258296 No Longer Active Ahmet Carbajal MD Active MINIPRESS 2 MG CAPS 4 cap po at night PRAZOSIN HCL 13447521828 No Longer Active Ahmet Carbajal MD Active PIROXICAM 20 MG CAPS 1 cap po qd PRN Pain PIROXICAM 26517494820 No Longer Active Ahmet Carbajal MD Active TRAMADOL HCL 50 MG TABS 1-2 po TID PRN Pain TRAMADOL HCL 57229535108 No Longer Active Ahmet Carbajal MD Active METOPROLOL TARTRATE 50 MG TAB 1 po bid METOPROLOL TARTRATE 61315655762 No Longer Active Ahmet Carbajal MD Active ABILIFY 15 MG ORAL TABS 1 tab daily ARIPIPRAZOLE 61302925594 No Longer Active Ahmet Carbajal MD Active PROZAC 20 MG ORAL CAPS 1 tab daily FLUOXETINE HCL 67093348713 No Longer Active Ahmet Carbajal MD Active AMBIEN 5 MG ORAL TABS 1 tab at bedtime ZOLPIDEM TARTRATE 83934883037 No Longer Active Ahmet Carbajal MD Active PREDNISONE 20 MG TAB 2 tabs daily for 4 days, 1 tab daily for 4 days, 1/2 tab daily for 4 days PREDNISONE 64193103899 No Longer Active Ahmet Carbajal MD Active KEFLEX 500 MG CAP 1 po TID x 10 days CEPHALEXIN 89214499926 No Longer Active Vishal Hui MD Active SAPHRIS 5 MG SUBL 1 po bid ASENAPINE MALEATE 71827421760 No Longer Active Jillina Frazelephraim FRUIT DRYER Active LATUDA 80 MG TABS Take one by mouth daily LURASIDONE HCL 56378248623 No Longer Active Jillina Frazell FRUIT DRYER Active AMLODIPINE BESYLATE 5 MG TABS 1 tablet by mouth daily AMLODIPINE BESYLATE 07566731843 No Longer Active Jillina Frazell FRUIT DRYER Active AMITRIPTYLINE HCL 100 MG TAB one at hs AMITRIPTYLINE HCL 74734312419 No Longer Active Vishal Hui MD Active TRAZODONE HCL 100 MG TAB take 1 at bedtime TRAZODONE HCL 06301141338 No Longer Active Vishal Hui MD Active VYVANSE 40 MG CAPS 1 daily, LISDEXAMFETAMINE DIMESYLATE 69257260988 No Longer Active Vishal Hui MD Active IBUPROFEN 600 MG TAB 1 po TID PRN IBUPROFEN 74413795487 No Longer Active Vishal Hui MD Active PROZAC 20 MG CAP Take one by mouth daily FLUOXETINE HCL 85789330101 No Longer Active Vishal Hui MD Active BACTRIM DS 800-160 MG TABS 1 pill by mouth twice daily SULFAMETHOXAZOLE-TRIMETHOPRIM 46843777131 No Longer Active Sahara Rodriguez MD PhD Active DIFLUCAN 150 MG TAB 1 tablet by mouth daily FLUCONAZOLE 09887729715 No Longer Active Vishal Hui MD Active TIZANIDINE HCL 4 MG TABS 1 po q6hr PRN Muscle Spasm/Back Pain TIZANIDINE HCL 78944386689 Active Vishal Hui MD Active CLINDAMYCIN HCL 150 MG CAPS 1 four times a day CLINDAMYCIN HCL 23802507906 No Longer Active Neeraj Collins MD Active KEFLEX 500 MG ORAL CAPS 1 cap QID by mouth CEPHALEXIN 88709525222 No Longer Active Neeraj Collins MD Active DIFLUCAN 150 MG TABS 1 pill every other day x 2 doses FLUCONAZOLE 11891754903 No Longer Active Sahara Rodriguez MD PhD Active MELATONIN 3 MG CAPS 2 po q hs MELATONIN 07270450912 No Longer Active Sahara Rodriguez MD PhD Active MULTIVITAMINS CAPS Take one by mouth daily MULTIPLE VITAMIN 42891100442 No Longer Active Sahara Rodriguez MD PhD Active BACTRIM DS 800-160 MG TAB 1 tab by mouth twice daily TRIMETHOPRIM-SULFAMETHOXAZOLE 13650339353 No Longer Active Sahara Rodriguez MD PhD Active [facility] PROBIOTIC ORAL CHEW 2 daily po PROBIOTIC PRODUCT 63170644196 No Longer Active Sahara Rodriguez MD PhD Active BACTRIM DS 800-160 MG TABS 1 po BID x 7 days SULFAMETHOXAZOLE-TRIMETHOPRIM 91077811808 No Longer Active Vishal Hui MD Active CHANTIX STARTING MONTH EARNEST 0.5 MG X 11 & 1 MG X 42 TABS 0.5mg daily for 3 days , then 0.5mg BID for 4 days, then 1mg BID VARENICLINE TARTRATE 36555555605 No Longer Active Lisette Scarrow, RMA Active VERAPAMIL HCL CR 120 MG TAB CR 1 po bid VERAPAMIL HCL 00124628732 No Longer Active Vishal Hui MD Active METOPROLOL SUCCINATE 50 MG TB24 1 tablet by mouth daily METOPROLOL SUCCINATE 09213591788 No Longer Active Vishal Hui MD Active SAPHRIS 10 MG SUBL 1 tab po bid ASENAPINE MALEATE 44353310288 No Longer Active Vishal Hui MD Active LISINOPRIL 20 MG TABS 1 tab po qd LISINOPRIL 35425770074 No Longer Active Vishal Hui MD Active LATUDA 20 MG TABS Take one by mouth daily LURASIDONE HCL 05881341413 No Longer Active Vishal Hui MD Active TRAZODONE HCL 50 MG TABS 1/2 tab po qd prn for anxiety TRAZODONE HCL 82882546970 No Longer Active Vishal Hui MD Active OMEPRAZOLE 20 MG TBEC 1 po q a.m. 30min prior to first food intake OMEPRAZOLE 17616547886 Active TAMARA Casey Active RANITIDINE HCL 150 MG CAPS 1 twice a day RANITIDINE HCL 24392638266 Active Luigi Martínez APRN Active LINZESS 290 MCG CAPS Take one by mouth daily LINACLOTIDE 39497233554 No Longer Active Vishal Hui MD Active SAPHRIS 5 MG SUBL 1 tab po qd ASENAPINE MALEATE 09418890943 No Longer Active Vishal Hui MD Active ZALEPLON 10 MG CAPS 1 cap po every other night ZALEPLON 54555158163 No Longer Active Vishal Hui MD Active LYRICA 50 MG CAPS 1 tab po TID PREGABALIN 39203366065 No Longer Active Vishal Hui MD Active LORATADINE 10 MG TABS 1 tab po qd LORATADINE 05620472584 No Longer Active Vishal Hui MD Active VERAPAMIL HCL ER 180 MG CR-TABS 1 tab po bid VERAPAMIL HCL 77858240802 No Longer Active Vishal Hui MD Active MIRALAX POWD 1 capfull once daily POLYETHYLENE GLYCOL 3350 11996492147 No Longer Active Vishal Hui MD Active PREDNISONE 20 MG TABS 1 tab po qd PREDNISONE 52610650177 No Longer Active Renzo Thornton DO Active LEVOFLOXACIN 500 MG TABS 1 tab po qd LEVOFLOXACIN 92216995379 No Longer Active Renzo Thornton DO Active BUSPIRONE HCL 15 MG TABS 1 tab po TID BUSPIRONE HCL 13924701409 No Longer Active Renzo Thornton DO Active BENZTROPINE MESYLATE 1 MG TABS 1 tab po qd BENZTROPINE MESYLATE 23081277060 No Longer Active Renzo Thornton DO Active ATENOLOL 25 MG TABS 1 tab po qd ATENOLOL 90293517843 No Longer Active Renzo Thornton DO Active ESCITALOPRAM OXALATE 20 MG TABS 1 tab po qd ESCITALOPRAM OXALATE 04104436027 No Longer Active Renzo Thornton DO Active ADVAIR DISKUS 250-50 MCG/DOSE AEPB 1 puff BID FLUTICASONE-SALMETEROL 17446889797 No Longer Active Renzo Thornton DO Active PREDNISONE 20 MG TAB 2 tabs daily for 3 days, 1 tab daily for 3 days, 1/2 tab daily for 2 days PREDNISONE 50414560071 No Longer Active Vishal Hui MD Active CEFDINIR 300 MG CAPS by mouth twice a day CEFDINIR 97000100085 No Longer Active Vishal Hui MD Active LANSOPRAZOLE 30 MG CPDR 1 cap po qd LANSOPRAZOLE 29371129405 No Longer Active Vishal Hui MD Active BACLOFEN 20 MG TABS 1 tab po tid BACLOFEN 34683423763 No Longer Active Vishal Hui MD Active ADVAIR DISKUS 250-50 MCG/DOSE AEPB 1 puff BID ADVAIR DISKUS 250-50 MCG/DOSE AEPB FLUTICASONE-SALMETEROL Inactive ESCITALOPRAM OXALATE 20 MG TABS 1 tab po qd ESCITALOPRAM OXALATE 20 MG TABS 391515 ESCITALOPRAM OXALATE Inactive ATENOLOL 25 MG TABS 1 tab po qd ATENOLOL 25 MG TABS 057417 ATENOLOL Inactive BENZTROPINE MESYLATE 1 MG TABS 1 tab po qd BENZTROPINE MESYLATE 1 MG TABS 186533 BENZTROPINE MESYLATE Inactive BUSPIRONE HCL 15 MG TABS 1 tab po TID BUSPIRONE HCL 15 MG TABS 479213 BUSPIRONE HCL Inactive LEVOFLOXACIN 500 MG TABS 1 tab po qd LEVOFLOXACIN 500 MG TABS 249787 LEVOFLOXACIN Inactive PREDNISONE 20 MG TABS 1 tab po qd PREDNISONE 20 MG TABS 170003 PREDNISONE Inactive MIRALAX POWD 1 capfull once daily MIRALAX POWD 495219 POLYETHYLENE GLYCOL 3350 Inactive VERAPAMIL HCL ER 180 MG CR-TABS 1 tab po bid VERAPAMIL HCL ER 180 MG CR-TABS VERAPAMIL HCL Inactive LORATADINE 10 MG TABS 1 tab po qd LORATADINE 10 MG TABS 183629 LORATADINE Inactive LYRICA 50 MG CAPS 1 tab po TID LYRICA 50 MG CAPS PREGABALIN Inactive ZALEPLON 10 MG CAPS 1 cap po every other night ZALEPLON 10 MG CAPS 270444 ZALEPLON Inactive SAPHRIS 5 MG SUBL 1 tab po qd SAPHRIS 5 MG SUBL ASENAPINE MALEATE Inactive TRAZODONE HCL 50 MG TABS 1/2 tab po qd prn for anxiety TRAZODONE HCL 50 MG TABS 241398 TRAZODONE HCL Inactive LATUDA 20 MG TABS Take one by mouth daily LATUDA 20 MG TABS LURASIDONE HCL Inactive LISINOPRIL 20 MG TABS 1 tab po qd LISINOPRIL 20 MG TABS 987764 LISINOPRIL Inactive SAPHRIS 10 MG SUBL 1 [...] twice daily BACTRIM DS 800-160 MG TAB 308054 TRIMETHOPRIM-SULFAMETHOXAZOLE Inactive MULTIVITAMINS CAPS Take one by mouth daily MULTIVITAMINS CAPS MULTIPLE VITAMIN Inactive MELATONIN 3 MG CAPS 2 po q hs MELATONIN 3 MG CAPS 003740 MELATONIN Inactive KEFLEX 500 MG ORAL CAPS 1 cap QID by mouth KEFLEX 500 MG ORAL CAPS 473265 CEPHALEXIN Inactive CLINDAMYCIN HCL 150 MG CAPS 1 four times a day CLINDAMYCIN HCL 150 MG CAPS 956759 CLINDAMYCIN HCL Inactive DIFLUCAN 150 MG TAB 1 tablet by mouth daily DIFLUCAN 150 MG TAB 997839 FLUCONAZOLE Inactive PROZAC 20 MG CAP Take one by mouth daily PROZAC 20 MG CAP 270150 FLUOXETINE HCL Inactive IBUPROFEN 600 MG TAB 1 po TID PRN IBUPROFEN 600 MG TAB 595251 IBUPROFEN Inactive VYVANSE 40 MG CAPS 1 daily, VYVANSE 40 MG CAPS LISDEXAMFETAMINE DIMESYLATE Inactive TRAZODONE HCL 100 MG TAB take 1 at bedtime TRAZODONE HCL 100 MG TAB 128926 TRAZODONE HCL Inactive AMITRIPTYLINE HCL 100 MG TAB one at hs AMITRIPTYLINE HCL 100 MG TAB 996681 AMITRIPTYLINE HCL Inactive AMLODIPINE BESYLATE 5 MG TABS 1 tablet by mouth daily AMLODIPINE BESYLATE 5 MG TABS 193833 AMLODIPINE BESYLATE Inactive LATUDA 80 MG TABS Take one by mouth daily LATUDA 80 MG TABS LURASIDONE HCL Inactive SAPHRIS 5 MG SUBL 1 po bid SAPHRIS 5 MG SUBL ASENAPINE MALEATE Inactive PREDNISONE 20 MG TAB 2 tabs daily for 4 days, 1 tab daily for 4 days, 1/2 tab daily for 4 days PREDNISONE 20 MG TAB 968937 PREDNISONE Inactive AMBIEN 5 MG ORAL TABS 1 tab at bedtime AMBIEN 5 MG ORAL TABS 175857 ZOLPIDEM TARTRATE Inactive PROZAC 20 MG ORAL CAPS 1 tab daily PROZAC 20 MG ORAL CAPS 180480 FLUOXETINE HCL Inactive ABILIFY 15 MG ORAL TABS 1 tab daily ABILIFY 15 MG ORAL TABS 623377 ARIPIPRAZOLE Inactive METOPROLOL TARTRATE 50 MG TAB 1 po bid METOPROLOL TARTRATE 50 MG TAB 149437 METOPROLOL TARTRATE Inactive TRAMADOL HCL 50 MG TABS 1-2 po TID PRN Pain TRAMADOL HCL 50 MG TABS 914204 TRAMADOL HCL Inactive PIROXICAM 20 MG CAPS 1 cap po qd PRN Pain PIROXICAM 20 MG CAPS 774091 PIROXICAM Inactive MINIPRESS 2 MG CAPS 4 cap po at night MINIPRESS 2 MG CAPS 793106 PRAZOSIN HCL Inactive MIRALAX PACK 1 po qd PRN Constipation MIRALAX PACK 064867 POLYETHYLENE GLYCOL 3350 Inactive METOPROLOL TARTRATE 25 MG ORAL TABS 1/2 tablet twice daily for heart rate and blood pressure METOPROLOL TARTRATE 25 MG ORAL TABS 170295 METOPROLOL TARTRATE Inactive VALIUM 5 MG TAB Take 1-2 tablets daily VALIUM 5 MG TAB 964417 DIAZEPAM Inactive FLAGYL 500 MG TAB 1 tablet by mouth bid FLAGYL 500 MG TAB 322368 METRONIDAZOLE Inactive DICLOFENAC POTASSIUM TABS Take 1 tablet twice a day (pt. is not sure of the dose.) DICLOFENAC POTASSIUM TABS DICLOFENAC POTASSIUM TABS Inactive ZITHROMAX Z-EARNEST 250 MG TABS 2 today and then 1 daily for 4 days ZITHROMAX Z-EARNEST 250 MG TABS 3584773 AZITHROMYCIN Inactive PREDNISONE 20 MG TABS 2 daily for 5 days then 1 daily for 5 days PREDNISONE 20 MG TABS 926763 PREDNISONE Inactive PROAIR HFA 108 (90 BASE) MCG/ACT AERS 2 puffs four times a day as needed 2015 PROAIR HFA 108 (90 BASE) MCG/ACT AERS ALBUTEROL SULFATE Inactive HYDROCODONE-ACETAMINOPHEN 5-325 MG TABS 1 to 2 four times a day as needed for pain use until can be seen by specialist HYDROCODONE- ACETAMINOPHEN 5-325 MG TABS 981308 HYDROCODONE-ACETAMINOPHEN Inactive TESSALON PERLES 100 MG CAP 1 to 2 tablets by mouth 3 times daily as needed for cough TESSALON PERLES 100 MG CAP 503372 BENZONATATE Inactive CHANTIX STARTING MONTH EARNEST 0.5 [...] Pain 2015 DICLOFENAC SODIUM 50 MG TBEC 449076 DICLOFENAC SODIUM Inactive TOPAMAX 50 MG ORAL TABS 1 tab twice daily TOPAMAX 50 MG ORAL TABS 519022 TOPIRAMATE Inactive VIIBRYD 10 MG ORAL TABS Take 1 tablet once a day VIIBRYD 10 MG ORAL TABS VILAZODONE HCL Inactive LEVOFLOXACIN 500 MG ORAL TABS po daily LEVOFLOXACIN 500 MG ORAL TABS 623462 LEVOFLOXACIN Inactive METHYLPREDNISOLONE 4 MG ORAL TABS po daily METHYLPREDNISOLONE 4 MG ORAL TABS 016034 METHYLPREDNISOLONE Inactive OXYCODONE HCL ER 10 MG ORAL T12A 1/2 tab by mouth every 4 hours prn OXYCODONE HCL ER 10 MG ORAL T12A OXYCODONE HCL Inactive FLAGYL 500 MG TAB 1 tablet by mouth bid FLAGYL 500 MG TAB 240650 METRONIDAZOLE Inactive MONISTAT 7 COMBO PACK WOODROW 100 & 2 MG-% (9GM) VAG KIT 1 applicatorful per vagina q pm x 7 MONISTAT 7 COMBO PACK WOODROW 100 & 2 MG-% (9GM) VAG KIT MICONAZOLE NITRATE Inactive BACTRIM DS 800-160 MG TABS 1 twice a day BACTRIM DS 800-160 MG TABS 157666 SULFAMETHOXAZOLE-TRIMETHOPRIM Inactive TRAMADOL HCL 50 MG TABS 1/2-1 tab TID PRN TRAMADOL HCL 50 MG TABS 847071 TRAMADOL HCL Inactive ABILIFY MAINTENA 400 MG IM SUSR 400mg injection every 26 days ABILIFY MAINTENA 400 MG IM SUSR ARIPIPRAZOLE Inactive KLONOPIN 1 MG ORAL TABS 1 tab po TID KLONOPIN 1 MG ORAL TABS 146003 CLONAZEPAM Inactive ADVAIR DISKUS 250-50 MCG/DOSE INH AEPB 1 puff twice a day for asthma ADVAIR DISKUS 250-50 MCG/DOSE INH AEPB FLUTICASONE- SALMETEROL Inactive BENADRYL 25 MG CAP 4 po at bedtime for insomnia BENADRYL 25 MG CAP DIPHENHYDRAMINE HCL Inactive PREDNISONE 20 MG TABS 2 daily for 5 days then 1 daily for 5 days PREDNISONE 20 MG TABS 287446 PREDNISONE Inactive HYDROCODONE-ACETAMINOPHEN 5-325 MG ORAL TABS 1 tab two times a day HYDROCODONE-ACETAMINOPHEN 5-325 MG ORAL TABS 932397 HYDROCODONE-ACETAMINOPHEN Inactive ZITHROMAX Z-EARNEST 250 MG TABS 2 today and then 1 daily for 4 days ZITHROMAX Z-EARNEST 250 MG TABS 6338613 AZITHROMYCIN Inactive GUAIFENESIN-CODEINE 100-10 MG/5ML SYRP 5ml every 4 to 6 hours as needed for cough GUAIFENESIN-CODEINE 100-10 MG/5ML SYRP 874410 GUAIFENESIN-CODEINE Inactive HALOPERIDOL 10 MG ORAL TABS 1 tab q.d HALOPERIDOL 10 MG ORAL TABS 977721 HALOPERIDOL Inactive ASPIRIN 325 MG ORAL TABS 1 tab q.d ASPIRIN 325 MG ORAL TABS 994883 ASPIRIN Inactive FLUTICASONE PROPIONATE 50 MCG/ACT SUSP 2 sprays each nostril daily before bed. FLUTICASONE PROPIONATE 50 MCG/ACT SUSP 3580479 FLUTICASONE PROPIONATE Inactive ZOFRAN 4 MG TABS 1 po q6hr PRN Nausea ZOFRAN 4 MG TABS 670063 ONDANSETRON HCL Inactive CEFDINIR 300 MG CAPS by mouth twice a day CEFDINIR 300 MG CAPS 634486 CEFDINIR Inactive PREDNISONE 20 MG TAB 2 tabs daily for 3 days, 1 tab daily for 3 days, 1/2 tab daily for 2 days PREDNISONE 20 MG TAB 878849 PREDNISONE Inactive BACTRIM DS 800-160 MG TABS 1 po BID x 7 days BACTRIM DS 800-160 MG TABS 19820521 SULFAMETHOXAZOLE-TRIMETHOPRIM Inactive DIFLUCAN 150 MG TABS 1 pill every other day x 2 doses DIFLUCAN 150 MG TABS 384034 FLUCONAZOLE Inactive BACTRIM DS 800-160 MG TABS 1 pill by mouth twice daily BACTRIM DS 800-160 MG TABS 19820521 SULFAMETHOXAZOLE-TRIMETHOPRIM Inactive KEFLEX 500 MG CAP 1 po TID x 10 days KEFLEX 500 MG CAP 105236 CEPHALEXIN Inactive Advance Directives Directive Description Start [...] pressure, diastolic - 8462-4 81 mm[Hg] BP cmnally blood pressure, systolic - 8480-6 124 mm[Hg] [...] % 11.0-15.0 platelet count 443 THOUSAND/UL 10*3/mm3 910-390 3743/03/01 mean platelet volume 8.2 fL 7.5-12.5 Lab [...] 369 10^3/MM^3 10*3/mm3 142-424 Lab Report: Chlamydia/GC APTIMA/[id number] - Lab chlamydia DNA probe NOT DETECTED NOT DETECTED Lab Report: Chlamydia/GC APTIMA/[id number] - Microbiology Neisseria gonorrhoeae DNA probe NOT DETECTED NOT DETECTED Lab Report: Chlamydia/GC APTIMA/[id number], Urinalysis, Complete, with Reflex ... - Lab chlamydia DNA probe NOT DETECTED NOT DETECTED Lab Report: Chlamydia/GC APTIMA/[id number], Urinalysis, Complete, with Reflex ... - Microbiology Neisseria gonorrhoeae DNA probe NOT DETECTED NOT DETECTED Lab Report: Chlamydia/GC APTIMA/[id number], Urinalysis, Complete, with Reflex ... - Urinalysis microalbumin/total urine volume 2 mg/L Units converted. See lab report for original value. microalbumin/creatinine ratio, urine 9 MCG/MG CREAT mg/L <30 Lab Report: Comp. Metabolic Panel - Chemistry sodium, serum 142 mmol/L 998-110 9699/06/08 carbon dioxide, venous blood 27.6 mmol/L 21.0-32.0 potassium, serum 4.0 mmol/L 3.5-5.2 chloride, serum 105 mmol/L 98-107 blood glucose 95 mg/dL 65-110 urea nitrogen, blood 8 mg/dL 7-18 creatinine, serum 0.75 mg/dL 0.55-1.30 alanine aminotransferase (SGPT), serum 49 U/L - aspartate aminotransferase (SGOT), serum 28 U/L 15-37 calcium, serum 9.4 mg/dL 8.5-10.1 bilirubin, serum, total 0.30 mg/dL 0.00-1.00 sodium, serum 140 mmol/L 136-318 5286/08/08 carbon dioxide, venous blood 33.7 mmol/L 21.0-32.0 [...] mg/dL Encounters Code Encounter Date Provider Facility CPT-65514 Level 3 Est. Patient 11:04:38 CDT Renzo W Norberto [facility] CPT-53862 Level 3 Est. Patient 11:15:58 GUIDE ESCORT Renzo Thornton [facility] CPT-47448 Level 3 Est. Patient 15:28:23 GUIDE ESCORT Suzan Boo [facility] CPT-40563 Level 4 Est. Patient 10:20:54 GUIDE ESCORT Suzan Boo [facility] CPT-11918 Level 3 Est. Patient 11:47:37 GUIDE ESCORT Ahmet Carbajal MD [facility] CPT-23032 Level 3 Est. Patient 10:40:11 GUIDE ESCORT Ahmet Carbajal MD [facility] CPT-61837 Level 3 Est. Patient 15:07:06 GUIDE ESCORT Neeraj Collins MD [facility] CPT-38731 Level 4 Est. Patient 14:45:00 GUIDE ESCORT Ahmet Carbajal MD [facility] CPT-08857 Level 3 Est. Patient 13:59:59 CDT Luigi Martínez [facility] CPT-38946 Level 3 Est. Patient 18:18:53 CDT Neeraj Collins MD [facility] CPT-84248 Level 3 Est. Patient 15:50:44 CDT Vishal Hui MD [facility] CPT-31843 Level 3 Est. Patient 11:36:17 CDT Ahmet Carbajal MD [facility] CPT-50208 Level 3 Est. Patient 13:29:16 CDT Vishal Hui MD [facility] CPT-83114 Level 3 Est. Patient 14:27:52 CDT Neeraj Collins MD [facility] CPT-30629 Level 3 Est. Patient 08:56:03 CDT Luigi Martínez [facility] CPT-10639 Level 4 Est. Patient 12:11:48 CDT Fabiola Johnson [facility] CPT-13411 Level 3 New Patient 16:53:37 CDT Albert Caldera MD [facility] CPT-63746 Level 3 Est. Patient 11:25:49 CDT Renzo Thornton [facility] CPT-23344 Level 3 Est. Patient 15:22:01 CDT Ahmet Carbajal MD [facility] CPT-36472 Level 4 Est. Patient 09:00:51 GUIDE [employer] Vishal Hui MD [facility] CPT-64228 Level 3 Est. Patient 11:37:33 GUIDE ESCORT Vishal Hui MD [facility] CPT-91425 Level 3 Est. Patient 08:41:09 GUIDE ESCORT Vishal Hui MD [facility] CPT-42143 Level 4 Est. Patient 10:19:35 GUIDE ESCORT iVshal Hui MD [facility] CPT-03524 Level 3 Est. Patient 13:35:45 CDT Vishal Hui MD [facility] CPT-35633 Level 4 Est. Patient 10:08:37 CDT Vishal Hui MD [facility] CPT-09451 Level 3 Est. Patient 11:22:10 CDT Vishal Hui MD [facility] CPT-87280 Level 3 Est. Patient 11:03:32 CDT Sahara Rodriguez MD, PhD [facility] CPT-15969 Level 3 Est. Patient 09:41:35 CDT Vishal Hui MD [facility] CPT-02378 Level 3 Est. Patient 12:00:41 CDT Neeraj Collins MD [facility] CPT-37748 Level 3 Est. Patient 09:16:24 CDT Vishal Hui MD [facility] CPT-70804 Level 4 Est. Patient 13:59:09 CDT Neeraj Collins MD [facility] CPT-95764 Level 3 Est. Patient 15:19:43 CDT Renzo Thornton DO [facility] CPT-54211 Level 3 Est. Patient 18:10:26 CDT Sahara Rodriguez MD PhD [facility] CPT-73310 Level 3 Est. Patient 14:49:50 CDT Vishal Hui MD [facility] CPT-56736 Level 4 Est. Patient 18:41:46 CDT Neeraj Collins MD [facility] CPT-27560 Level 4 Est. Patient 09:18:38 GUIDE ESCORT Vishal Hui MD [facility] CPT-51939 Level 3 Est. Patient 14:43:55 GUIDE ESCORT Vishal Hui MD [facility] CPT-70429 Level 3 Est. Patient 15:26:33 GUIDE ESCORT Sahara Rodriguez MD PhD [facility] CPT-42122 Level 3 Est. Patient 10:32:14 GUIDE ESCORT Vishal Hui MD [facility] CPT-11841 Level 3 Est. Patient 15:12:52 GUIDE ESCORT Vishal Hui MD [facility] CPT-63949 Level 4 Est. Patient 09:19:27 CDT Vishal Hui MD [facility] CPT-95945 Level 3 Est. Patient 15:53:00 CDT Renzo Thornton [facility] CPT-49955 Level 3 Est. Patient 15:50:30 CDT Renzo Thornton [facility] CPT-73800 Level 3 Est. Patient 16:55:24 CDT Vishal Hui MD [facility] Procedures Code Procedure Name Date Entry Date Standard Description CPT-18289 Smoking Cessation counseling 11:15:58 GUIDE ESCORT CPT-G0439 [facility] Annual Wellness Exam 09:30:58 GUIDE ESCORT CPT-32493 TSH - LAB USE ONLY 08:50:26 GUIDE ESCORT CPT-30480 CBC - LAB USE ONLY 08:50:26 GUIDE ESCORT CPT-40453 Venipuncture Draw Fee 08:50:26 GUIDE ESCORT CPT-30403 Abx/Therapy Injection 17:34:30 GUIDE ESCORT CPT-54199 Nexplanon Removal with Reinsertion 14:09:32 CDT CPT-J7307 Nexplanon (Implant) 14:09:32 CDT CPT-OV Office Visit 14:09:32 CDT CPT-69294 UA w micro - LAB USE ONLY 16:21:13 CDT CPT-11326 Wet Mount - LAB USE ONLY 16:21:13 CDT CPT-65170 First Vx - Ix admin for Medicare patients 14:37:47 CDT CPT-35199 Fluzone Preservative Free Intramuscular Suspension 14:37 :47 CDT CPT-03417 Abx/Therapy Injection 13:54:22 CDT CPT-09421 Abx/Therapy Injection 08:47:09 CDT CPT-24408 Abx/Therapy Injection 13:29:56 CDT CPT-78427 Abx/Therapy Injection 08:36:16 CDT CPT-90125 Wet Mount - LAB USE ONLY 17:44:58 CDT CPT-81872 UA w micro - LAB USE ONLY 17:44:58 CDT CPT-87270 CMP - LAB USE ONLY 17:44:58 CDT CPT-29242 Venipuncture Draw Fee 17:44:58 CDT CPT-64750 Cervical Min 4V - XRAY USE ONLY 09:01:40 CDT CPT-26853 Chest 2V Frontal and Lat - XRAY USE ONLY 11:06:31 CDT CPT-70295 EKG Trac and Interp - XRAY USE ONLY 11:31:43 CDT 08/26 CPT-J3420 Vitamin B12 1000mcg (Cyanocobalamin) 08:10:26 GUIDE ESCORT 04/12 CPT-43478 Abx/Therapy Injection 08:10:26 GUIDE ESCORT CPT-G0438 Initial Annual Wellness Exam 19:01:01 GUIDE ESCORT CPT-J3420 Vitamin B12 1000mcg (Cyanocobalamin) 16:57:46 CDT 08/14 CPT-11918 Recombivax HB Injection Suspension 5 MCG/0.5ML 08:37:50 GUIDE ESCORT CPT-56885 Immunization Single Admin 08:37:50 GUIDE ESCORT CPT-J3420 Vitamin B12 1000mcg (Cyanocobalamin) 08:32:16 GUIDE ESCORT 03/11 CPT-62975 Abx/Therapy Injection 08:32:16 GUIDE ESCORT CPT-86684 Chest 2V Frontal and Lat 11:46:38 GUIDE ESCORT CPT-25945 Venipuncture Draw Fee 09:12:45 GUIDE ESCORT CPT-J3420 Vitamin B12 1000mcg (Cyanocobalamin) 08:50:15 GUIDE ESCORT 02/08 CPT-89113 Abx/Therapy Injection 08:50:15 GUIDE ESCORT CPT-Cryo Cryotherapy 10:19:35 GUIDE ESCORT CPT-000 Give Appropriate Flu Vaccine 09:22:16 CDT CPT-J3420 Vitamin B12 1000mcg (Cyanocobalamin) 19:08:57 CDT 01/11 CPT-67418 Abx/Therapy Injection 19:08:57 CDT CPT-J3420 Vitamin B12 1000mcg (Cyanocobalamin) 08:19:08 CDT 12/11 CPT-97418 Abx/Therapy Injection 08:19:08 CDT CPT-J3420 Vitamin B12 1000mcg (Cyanocobalamin) 14:48:00 CDT 11/09 CPT-63117 Abx/Therapy Injection 14:47:59 CDT CPT-J3420 Vitamin B12 1000mcg (Cyanocobalamin) 08:34:04 CDT 10/09 CPT-17110 Abx/Therapy Injection 08:34:04 CDT CPT-J3420 Vitamin B12 1000mcg (Cyanocobalamin) 09:18:52 CDT 09/11 CPT-52920 Abx/Therapy Injection 09:18:52 CDT CPT-J3420 Vitamin B12 1000mcg (Cyanocobalamin) 08:35:44 CDT 09/04 CPT-89845 Abx/Therapy Injection 08:35:44 CDT CPT-22202 Immunization Single Admin 11:07:16 CDT CPT-92056 Hepatitis B adult IM 11:07:16 CDT CPT-J3420 Vitamin B12 1000mcg (Cyanocobalamin) 11:00:49 CDT 08/28 CPT-J1040 Depo Medrol 80 mg (Methyl Prednisolone Acetate) 11:00: 49 CDT CPT-65646 Abx/Therapy Injection 11:00:49 CDT CPT-J1040 Depo Medrol 80 mg (Methyl Prednisolone Acetate) 09:16: 23 CDT CPT-J3420 Vitamin B12 1000mcg (Cyanocobalamin) 08:27:05 CDT 08/20 CPT-19320 Abx/Therapy Injection 08:27:05 CDT CPT-41631 Recombivax HB Injection Suspension 5 MCG/0.5ML 10:00:41 CDT CPT-21818 Administration single or combination vaccine inc oral 10 :00:41 CDT CPT-97346 Sono transvag pelvis non OB uterus ovaries cervix 16:36: 57 CDT CPT-02563 LS spine comp w obliq 09:50:55 GUIDE ESCORT CPT-74723 Abd compl w upright 09:50:55 GUIDE ESCORT CPT-J1100 Decadron 4mg (Dexamethasone) 15:51:24 GUIDE ESCORT CPT-J1030 Depo Medrol 40 mg (Methyl Prednisolone Acetate) 15:51: 24 GUIDE ESCORT CPT-98219 Abx/Therapy Injection 15:51:24 GUIDE ESCORT CPT-J1100 Decadron 4mg (Dexamethasone) 15:26:33 GUIDE ESCORT CPT-J1030 Depo Medrol 40 mg (Methyl Prednisolone Acetate) 15:26: 33 GUIDE ESCORT CPT-49353 Sono retroperitoneal complete kidneys and bladder 17:15: 30 CDT CPT-75811 Abd compl w upright 16:09:25 CDT CPT-J1100 Decadron 8mg (Dexamethasone) 17:07:57 CDT CPT-52562 Abx/Therapy Injection 17:07:57 CDT CPT-J1100 Decadron 8mg (Dexamethasone) 16:55:24 CDT CPT-81551 Chest 2V Frontal and Lat 16:32:44 CDT
--- OUTSIDE RECORDS SUMMARY | 2016-11-04 18:00 | XMS REPORT | Clinical Summary ---
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 woman exam V72.31 Active Suzan Boo [...] then 1 daily for 4 days AZITHROMYCIN 97334129637 Active Suzan Boo APRN Active PREDNISONE 10 MG TABS 2 daily for 5 days then 1 daily for 5 days PREDNISONE 36355889528 Active Suzan Boo APRN Active CLONAZEPAM 1 MG ORAL TABS 1 twice a day and an additional 1 tablet every other day as needed for pseudoseizures or anxiety CLONAZEPAM 40722150181 Active Ahmet Carbajal MD Active HYDROCODONE-ACETAMINOPHEN 5-325 MG ORAL TABS 1 tab two times a day HYDROCODONE-ACETAMINOPHEN 10712098523 No Longer Active Ahmet Carbajal MD Active LAMICTAL 100 MG ORAL TABS 1 tab 2 times qd. LAMOTRIGINE 43099604438 Active Ahmet Carbajal MD Active PREDNISONE 20 MG TABS 2 daily for 5 days then 1 daily for 5 days PREDNISONE 09424415362 No Longer Active Ahmet Carbajal MD Active FLUTICASONE PROPIONATE 50 MCG/ACT SUSP 1 to 2 sprays each nostril daily for allergies FLUTICASONE PROPIONATE 03502626587 Active Tila Valenzuela Active GUAIFENESIN-CODEINE 100-10 MG/5ML SYRP 5ml every 4 to 6 hours as needed for cough GUAIFENESIN-CODEINE 52724225929 Active Ahmet Carbajal MD Active BENADRYL 25 MG CAP 4 po at bedtime for insomnia DIPHENHYDRAMINE HCL 19124563089 No Longer Active Ahmet Carbajal MD Active ADVAIR DISKUS 250-50 MCG/DOSE INH AEPB 1 puff twice a day for asthma FLUTICASONE-SALMETEROL 96422534179 No Longer Active Ahmet Carbajal MD Active KLONOPIN 1 MG ORAL TABS 1 tab po TID CLONAZEPAM 78350938213 No Longer Active Ahmet Carbajal MD Active ABILIFY MAINTENA 400 MG IM SUSR 400mg injection every 26 days ARIPIPRAZOLE 89027115870 No Longer Active Ahmet Carbajal MD Active HALOPERIDOL 10 MG ORAL TABS 1 tab q.d HALOPERIDOL 82486986667 Active Ahmet Carbajal MD Active ASPIRIN 325 MG ORAL TABS 1 tab q.d ASPIRIN 45707813268 Active Ahmet Carbajal MD Active TRAMADOL HCL 50 MG TABS 1/2-1 tab TID PRN TRAMADOL HCL 60773758312 No Longer Active Ahmet Carbajal MD Active BACTRIM DS 800-160 MG TABS 1 twice a day SULFAMETHOXAZOLE- TRIMETHOPRIM 85373291796 No Longer Active Ahmet Carbajal MD Active PROAIR HFA 108 (90 BASE) MCG/ACT AERS 2 puffs four times a day as needed 2015 ALBUTEROL SULFATE 27671120056 Active Ahmet Carbajal MD Active EQ NICOTINE 21 MG/24HR TRANS PT24 Apply daily to stop smoking NICOTINE 87235993280 Active Ahmet Carbajal MD Active MONISTAT 7 COMBO PACK WOODROW 100 & 2 MG-% (9GM) VAG KIT 1 applicatorful per vagina q pm x 7 MICONAZOLE NITRATE 89891510348 No Longer Active Ahmet Carbajal MD Active FLAGYL 500 MG TAB 1 tablet by mouth bid METRONIDAZOLE 95578613600 No Longer Active Ahmet Carbajal MD Active OXYCODONE HCL ER 10 MG ORAL T12A 1/2 tab by mouth every 4 hours prn OXYCODONE HCL 04281955344 No Longer Active Ahmet Carbajal MD Active METHYLPREDNISOLONE 4 MG ORAL TABS po daily METHYLPREDNISOLONE 41174991518 No Longer Active Ahmet Carbajal MD Active LEVOFLOXACIN 500 MG ORAL TABS po daily LEVOFLOXACIN 04175453763 No Longer Active Ahmet Carbajal MD Active VIIBRYD 10 MG ORAL TABS Take 1 tablet once a day VILAZODONE HCL 78041336830 No Longer Active Ahmet Carbajal MD Active TOPAMAX 50 MG ORAL TABS 1 tab twice daily TOPIRAMATE 88488783848 No Longer Active Ahmet Carbajal MD Active DICLOFENAC SODIUM 50 MG TBEC 1 tablet by mouth four times daily PRN Pain 2015 DICLOFENAC SODIUM 18386830300 No Longer Active Ahmet Carbajal MD Active ADZENYS XR-ODT 6.3 MG ORAL TBED 1 tab po daily for ADHD AMPHETAMINE 97845677265 No Longer Active Ahmet Carbajal MD Active CHANTIX 1 MG TABS 1 twice a day to help quit smoking VARENICLINE TARTRATE 19896710933 No Longer Active Dipika Burgos MD Active CHANTIX STARTING MONTH EARNEST 0.5 MG X 11 & 1 MG X 42 TABS take as directed 2015 VARENICLINE TARTRATE 22316012474 No Longer Active Dipika Burgso MD Active TESLIZ PERLES 100 MG CAP 1 to 2 tablets by mouth 3 times daily as needed for cough BENZONATATE 12256971698 No Longer Active Luigi Martínez APRN Active IMITREX 50 MG ORAL TABS 0.5 po x 1 PRN Headache. May repeat dose x 1 in 2 hours if needed SUMATRIPTAN SUCCINATE 41263395349 Active Ahmet Carbajal MD Active HYDROCODONE-ACETAMINOPHEN 5-325 MG TABS 1 to 2 four times a day as needed for pain use until can be seen by specialist HYDROCODONE- ACETAMINOPHEN 68182438926 No Longer Active Vishal Hui MD Active PROAIR HFA 108 (90 BASE) MCG/ACT AERS 2 puffs four times a day as needed 2015 ALBUTEROL SULFATE 09487717327 No Longer Active Vishal Hui MD Active PREDNISONE 20 MG TABS 2 daily for 5 days then 1 daily for 5 days PREDNISONE 61585077905 No Longer Active Vishal Hui MD Active ZITHROMAX Z-EARNEST 250 MG TABS 2 today and then 1 daily for 4 days AZITHROMYCIN 36140172755 No Longer Active Vishal Hui MD Active DICLOFENAC POTASSIUM TABS Take 1 tablet twice a day (pt. is not sure of the dose.) DICLOFENAC POTASSIUM TABS 96976083219 No Longer Active Vishal Hui MD Active VERAPAMIL HCL ER 120 MG ORAL CR-TABS Take 1 tablet by mouth twice a day. VERAPAMIL HCL 33061376072 Active Vishal Hui MD Active FLAGYL 500 MG TAB 1 tablet by mouth bid METRONIDAZOLE 01221391579 No Longer Active Vishal Hui MD Active FLUTICASONE PROPIONATE 50 MCG/ACT SUSP 2 sprays each nostril daily before bed. FLUTICASONE PROPIONATE 86494118016 Active Fabiola Johnson APRN Active VALIUM 5 MG TAB Take 1-2 tablets daily DIAZEPAM 87464439190 No Longer Active Fabiola Johnson APRN Active METOPROLOL TARTRATE 25 MG ORAL TABS 1/2 tablet twice daily for heart rate and blood pressure METOPROLOL TARTRATE 50963506809 No Longer Active Fabiola Johnson APRN Active MIRALAX ORAL POWD 17GMS DAILY IN WATER POLYETHYLENE GLYCOL 3350 18557715183 Active Bertha Kofi TAMARA Active MIRALAX PACK 1 po qd PRN Constipation POLYETHYLENE GLYCOL 3350 74925401072 No Longer Active Ahmet Carbajal MD Active MINIPRESS 2 MG CAPS 4 cap po at night PRAZOSIN HCL 39425368623 No Longer Active Ahmet Carbajal MD Active PIROXICAM 20 MG CAPS 1 cap po qd PRN Pain PIROXICAM 84595462454 No Longer Active Ahmet Carbajal MD Active TRAMADOL HCL 50 MG TABS 1-2 po TID PRN Pain TRAMADOL HCL 07531099565 No Longer Active Ahmet Carbajal MD Active METOPROLOL TARTRATE 50 MG TAB 1 po bid METOPROLOL TARTRATE 81328074364 No Longer Active Ahmet Carbajal MD Active ABILIFY 15 MG ORAL TABS 1 tab daily ARIPIPRAZOLE 22022790345 No Longer Active Ahmet Carbajal MD Active PROZAC 20 MG ORAL CAPS 1 tab daily FLUOXETINE HCL 08993388751 No Longer Active Ahmet Carbajal MD Active AMBIEN 5 MG ORAL TABS 1 tab at bedtime ZOLPIDEM TARTRATE 18170355812 No Longer Active Ahmet Carbajal MD Active PREDNISONE 20 MG TAB 2 tabs daily for 4 days, 1 tab daily for 4 days, 1/2 tab daily for 4 days PREDNISONE 94638622202 No Longer Active Ahmet Carbajal MD Active KEFLEX 500 MG CAP 1 po TID x 10 days CEPHALEXIN 04815374063 No Longer Active Vishal Hui MD Active SAPHRIS 5 MG SUBL 1 po bid ASENAPINE MALEATE 93010745892 No Longer Active Luigi Martínez APRN Active LATUDA 80 MG TABS Take one by mouth daily LURASIDONE HCL 86468183212 No Longer Active Luigi Martínez APRN Active AMLODIPINE BESYLATE 5 MG TABS 1 tablet by mouth daily AMLODIPINE BESYLATE 94978485649 No Longer Active Luigi Martínez IMAGING AIDE Active AMITRIPTYLINE HCL 100 MG TAB one at hs AMITRIPTYLINE HCL 40419447033 No Longer Active Vishal Hui MD Active TRAZODONE HCL 100 MG TAB take 1 at bedtime TRAZODONE HCL 19417077690 No Longer Active Vishal Hui MD Active VYVANSE 40 MG CAPS 1 daily, LISDEXAMFETAMINE DIMESYLATE 69085191224 No Longer Active Vishal Hui MD Active IBUPROFEN 600 MG TAB 1 po TID PRN IBUPROFEN 39608706721 No Longer Active Vishal Hui MD Active PROZAC 20 MG CAP Take one by mouth daily FLUOXETINE HCL 73929328649 No Longer Active Vishal Hui MD Active ZOFRAN 4 MG TABS 1 po q6hr PRN Nausea ONDANSETRON HCL Active Vishal Hui MD Active BACTRIM DS 800-160 MG TABS 1 pill by mouth twice daily SULFAMETHOXAZOLE-TRIMETHOPRIM 88704977768 No Longer Active Sahara Rodriguez MD PhD Active DIFLUCAN 150 MG TAB 1 tablet by mouth daily FLUCONAZOLE 78738559061 No Longer Active Vishal Hui MD Active TIZANIDINE HCL 4 MG TABS 1 po q6hr PRN Muscle Spasm/Back Pain TIZANIDINE HCL 36789190633 Active Vishal Hui MD Active CLINDAMYCIN HCL 150 MG CAPS 1 four times a day CLINDAMYCIN HCL 82886200643 No Longer Active Neeraj Collins MD Active KEFLEX 500 MG ORAL CAPS 1 cap QID by mouth CEPHALEXIN 52261275744 No Longer Active Neeraj Collins MD Active DIFLUCAN 150 MG TABS 1 pill every other day x 2 doses FLUCONAZOLE 95856296590 No Longer Active Sahara Rodriguez MD PhD Active MELATONIN 3 MG CAPS 2 po q hs MELATONIN 53397120340 No Longer Active Sahara Rodriguez MD PhD Active MULTIVITAMINS CAPS Take one by mouth daily MULTIPLE VITAMIN 49677200904 No Longer Active Sahara Rodriguez MD PhD Active BACTRIM DS 800-160 MG TAB 1 tab by mouth twice daily TRIMETHOPRIM-SULFAMETHOXAZOLE 40008130064 No Longer Active Sahara Rodriguez MD PhD Active [facility] PROBIOTIC ORAL CHEW 2 daily po PROBIOTIC PRODUCT 79191337021 No Longer Active Sahara Rodriguez MD PhD Active BACTRIM DS 800-160 MG TABS 1 po BID x 7 days SULFAMETHOXAZOLE-TRIMETHOPRIM 43712235866 No Longer Active Vishal Hui MD Active CHANTIX STARTING MONTH EARNEST 0.5 MG X 11 & 1 MG X 42 TABS 0.5mg daily for 3 days , then 0.5mg BID for 4 days, then 1mg BID VARENICLINE TARTRATE 53098630125 No Longer Active TAMARA Gray Active VERAPAMIL HCL CR 120 MG TAB CR 1 po bid VERAPAMIL HCL 51986853815 No Longer Active Vishal Hui MD Active METOPROLOL SUCCINATE 50 MG TB24 1 tablet by mouth daily METOPROLOL SUCCINATE 07566654926 No Longer Active Vishal Hui MD Active SAPHRIS 10 MG SUBL 1 tab po bid ASENAPINE MALEATE 03946829364 No Longer Active Vishal Hui MD Active LISINOPRIL 20 MG TABS 1 tab po qd LISINOPRIL 65606566653 No Longer Active Vishal Hui MD Active LATUDA 20 MG TABS Take one by mouth daily LURASIDONE HCL 13924101846 No Longer Active Vishal Hui MD Active TRAZODONE HCL 50 MG TABS 1/2 tab po qd prn for anxiety TRAZODONE HCL 74021625749 No Longer Active Vishal Hui MD Active OMEPRAZOLE 20 MG TBEC 1 po q a.m. 30min prior to first food intake OMEPRAZOLE 64867231220 Active Vishal Hui MD Active RANITIDINE HCL 150 MG CAPS 1 twice a day RANITIDINE HCL 29838334315 Active Jioral Messilebron IMAGING AIDE Active LINZESS 290 MCG CAPS Take one by mouth daily LINACLOTIDE 89813652898 No Longer Active Vishal Hui MD Active SAPHRIS 5 MG SUBL 1 tab po qd ASENAPINE MALEATE 86472949376 No Longer Active Vishal Hui MD Active ZALEPLON 10 MG CAPS 1 cap po every other night ZALEPLON 21250990884 No Longer Active Vishal Hui MD Active LYRICA 50 MG CAPS 1 tab po TID PREGABALIN 42255133240 No Longer Active Vishal Hui MD Active LORATADINE 10 MG TABS 1 tab po qd LORATADINE 13949843618 No Longer Active Vishal Hui MD Active VERAPAMIL HCL ER 180 MG CR-TABS 1 tab po bid VERAPAMIL HCL 40685108369 No Longer Active Vishal Hui MD Active MIRALAX POWD 1 capfull once daily POLYETHYLENE GLYCOL 3350 37729566925 No Longer Active Vishal Hui MD Active PREDNISONE 20 MG TABS 1 tab po qd PREDNISONE 85423752235 No Longer Active Renzo Thornton DO Active LEVOFLOXACIN 500 MG TABS 1 tab po qd LEVOFLOXACIN 93634060533 No Longer Active Renzo Thornton DO Active BUSPIRONE HCL 15 MG TABS 1 tab po TID BUSPIRONE HCL 39606959876 No Longer Active Renzo Thornton DO Active BENZTROPINE MESYLATE 1 MG TABS 1 tab po qd BENZTROPINE MESYLATE 94571356142 No Longer Active Renzo Thornton DO Active ATENOLOL 25 MG TABS 1 tab po qd ATENOLOL 92309657787 No Longer Active Renzo Thornton DO Active ESCITALOPRAM OXALATE 20 MG TABS 1 tab po qd ESCITALOPRAM OXALATE 65716449568 No Longer Active Renzo Thornton DO Active ADVAIR DISKUS 250-50 MCG/DOSE AEPB 1 puff BID FLUTICASONE-SALMETEROL 49480793630 No Longer Active Renzo Thornton DO Active PREDNISONE 20 MG TAB 2 tabs daily for 3 days, 1 tab daily for 3 days, 1/2 tab daily for 2 days PREDNISONE 54252965964 No Longer Active Vishal Hui MD Active CEFDINIR 300 MG CAPS by mouth twice a day CEFDINIR 34731193353 No Longer Active Vishal Hui MD Active LANSOPRAZOLE 30 MG CPDR 1 cap po qd LANSOPRAZOLE 75824885023 No Longer Active Vishal Hui MD Active BACLOFEN 20 MG TABS 1 tab po tid BACLOFEN 24491200124 No Longer Active Vishal Hui MD Active ADVAIR DISKUS 250-50 MCG/DOSE AEPB 1 puff BID ADVAIR DISKUS 250-50 MCG/DOSE AEPB FLUTICASONE-SALMETEROL Inactive ESCITALOPRAM OXALATE 20 MG TABS 1 tab po qd ESCITALOPRAM OXALATE 20 MG TABS 074101 ESCITALOPRAM OXALATE Inactive ATENOLOL 25 MG TABS 1 tab po qd ATENOLOL 25 MG TABS 534417 ATENOLOL Inactive BENZTROPINE MESYLATE 1 MG TABS 1 tab po qd BENZTROPINE MESYLATE 1 MG TABS 941174 BENZTROPINE MESYLATE Inactive BUSPIRONE HCL 15 MG TABS 1 tab po TID BUSPIRONE HCL 15 MG TABS 711345 BUSPIRONE HCL Inactive LEVOFLOXACIN 500 MG TABS 1 tab po qd LEVOFLOXACIN 500 MG TABS 629691 LEVOFLOXACIN Inactive PREDNISONE 20 MG TABS 1 tab po qd PREDNISONE 20 MG TABS 960662 PREDNISONE Inactive MIRALAX POWD 1 capfull once daily MIRALAX POWD 698041 POLYETHYLENE GLYCOL 3350 Inactive VERAPAMIL HCL ER 180 MG CR-TABS 1 tab po bid VERAPAMIL HCL ER 180 MG CR-TABS VERAPAMIL HCL Inactive LORATADINE 10 MG TABS 1 tab po qd LORATADINE 10 MG TABS 243930 LORATADINE Inactive LYRICA 50 MG CAPS 1 tab po TID LYRICA 50 MG CAPS PREGABALIN Inactive ZALEPLON 10 MG CAPS 1 cap po every other night ZALEPLON 10 MG CAPS 231308 ZALEPLON Inactive SAPHRIS 5 MG SUBL 1 tab po qd SAPHRIS 5 MG SUBL ASENAPINE MALEATE Inactive TRAZODONE HCL 50 MG TABS 1/2 tab po qd prn for anxiety TRAZODONE HCL 50 MG TABS 959558 TRAZODONE HCL Inactive LATUDA 20 MG TABS Take one by mouth daily LATUDA 20 MG TABS LURASIDONE HCL Inactive LISINOPRIL 20 MG TABS 1 tab po qd LISINOPRIL 20 MG TABS 732675 LISINOPRIL Inactive SAPHRIS 10 MG SUBL 1 [...] twice daily BACTRIM DS 800-160 MG TAB 732416 TRIMETHOPRIM-SULFAMETHOXAZOLE Inactive MULTIVITAMINS CAPS Take one by mouth daily MULTIVITAMINS CAPS MULTIPLE VITAMIN Inactive MELATONIN 3 MG CAPS 2 po q hs MELATONIN 3 MG CAPS 19950526 MELATONIN Inactive KEFLEX 500 MG ORAL CAPS 1 cap QID by mouth KEFLEX 500 MG ORAL CAPS 541513 CEPHALEXIN Inactive CLINDAMYCIN HCL 150 MG CAPS 1 four times a day CLINDAMYCIN HCL 150 MG CAPS 017974 CLINDAMYCIN HCL Inactive DIFLUCAN 150 MG TAB 1 tablet by mouth daily DIFLUCAN 150 MG TAB 450707 FLUCONAZOLE Inactive PROZAC 20 MG CAP Take one by mouth daily PROZAC 20 MG CAP 300430 FLUOXETINE HCL Inactive IBUPROFEN 600 MG TAB 1 po TID PRN IBUPROFEN 600 MG TAB 675495 IBUPROFEN Inactive VYVANSE 40 MG CAPS 1 daily, VYVANSE 40 MG CAPS LISDEXAMFETAMINE DIMESYLATE Inactive TRAZODONE HCL 100 MG TAB take 1 at bedtime TRAZODONE HCL 100 MG TAB 650858 TRAZODONE HCL Inactive AMITRIPTYLINE HCL 100 MG TAB one at hs AMITRIPTYLINE HCL 100 MG TAB 557543 AMITRIPTYLINE HCL Inactive AMLODIPINE BESYLATE 5 MG TABS 1 tablet by mouth daily AMLODIPINE BESYLATE 5 MG TABS 455627 AMLODIPINE BESYLATE Inactive LATUDA 80 MG TABS Take one by mouth daily LATUDA 80 MG TABS LURASIDONE HCL Inactive SAPHRIS 5 MG SUBL 1 po bid SAPHRIS 5 MG SUBL ASENAPINE MALEATE Inactive PREDNISONE 20 MG TAB 2 tabs daily for 4 days, 1 tab daily for 4 days, 1/2 tab daily for 4 days PREDNISONE 20 MG TAB 128594 PREDNISONE Inactive AMBIEN 5 MG ORAL TABS 1 tab at bedtime AMBIEN 5 MG ORAL TABS 226066 ZOLPIDEM TARTRATE Inactive PROZAC 20 MG ORAL CAPS 1 tab daily PROZAC 20 MG ORAL CAPS 214399 FLUOXETINE HCL Inactive ABILIFY 15 MG ORAL TABS 1 tab daily ABILIFY 15 MG ORAL TABS 917209 ARIPIPRAZOLE Inactive METOPROLOL TARTRATE 50 MG TAB 1 po bid METOPROLOL TARTRATE 50 MG TAB 829210 METOPROLOL TARTRATE Inactive TRAMADOL HCL 50 MG TABS 1-2 po TID PRN Pain TRAMADOL HCL 50 MG TABS 010549 TRAMADOL HCL Inactive PIROXICAM 20 MG CAPS 1 cap po qd PRN Pain PIROXICAM 20 MG CAPS 256597 PIROXICAM Inactive MINIPRESS 2 MG CAPS 4 cap po at night MINIPRESS 2 MG CAPS 595936 PRAZOSIN HCL Inactive MIRALAX PACK 1 po qd PRN Constipation MIRALAX PACK 262103 POLYETHYLENE GLYCOL 3350 Inactive METOPROLOL TARTRATE 25 MG ORAL TABS 1/2 tablet twice daily for heart rate and blood pressure METOPROLOL TARTRATE 25 MG ORAL TABS 467914 METOPROLOL TARTRATE Inactive VALIUM 5 MG TAB Take 1-2 tablets daily VALIUM 5 MG TAB 223056 DIAZEPAM Inactive FLAGYL 500 MG TAB 1 tablet by mouth bid FLAGYL 500 MG TAB 867104 METRONIDAZOLE Inactive DICLOFENAC POTASSIUM TABS Take 1 tablet twice a day (pt. is not sure of the dose.) DICLOFENAC POTASSIUM TABS DICLOFENAC POTASSIUM TABS Inactive ZITHROMAX Z-EARNEST 250 MG TABS 2 today and then 1 daily for 4 days ZITHROMAX Z-EARNEST 250 MG TABS 7708345 AZITHROMYCIN Inactive PREDNISONE 20 MG TABS 2 daily for 5 days then 1 daily for 5 days PREDNISONE 20 MG TABS 204758 PREDNISONE Inactive PROAIR HFA 108 (90 BASE) MCG/ACT AERS 2 puffs four times a day as needed 2015 PROAIR HFA 108 (90 BASE) MCG/ACT AERS ALBUTEROL SULFATE Inactive HYDROCODONE-ACETAMINOPHEN 5-325 MG TABS 1 to 2 four times a day as needed for pain use until can be seen by specialist HYDROCODONE- ACETAMINOPHEN 5-325 MG TABS 445961 HYDROCODONE-ACETAMINOPHEN Inactive TESSALON PERLES 100 MG CAP 1 to 2 tablets by mouth 3 times daily as needed for cough TESSALON PERLES 100 MG CAP 532296 BENZONATATE Inactive CHANTIX STARTING MONTH EARNEST 0.5 [...] Pain 2015 DICLOFENAC SODIUM 50 MG TBEC 481213 DICLOFENAC SODIUM Inactive TOPAMAX 50 MG ORAL TABS 1 tab twice daily TOPAMAX 50 MG ORAL TABS 594247 TOPIRAMATE Inactive VIIBRYD 10 MG ORAL TABS Take 1 tablet once a day VIIBRYD 10 MG ORAL TABS VILAZODONE HCL Inactive LEVOFLOXACIN 500 MG ORAL TABS po daily LEVOFLOXACIN 500 MG ORAL TABS 559294 LEVOFLOXACIN Inactive METHYLPREDNISOLONE 4 MG ORAL TABS po daily METHYLPREDNISOLONE 4 MG ORAL TABS 631755 METHYLPREDNISOLONE Inactive OXYCODONE HCL ER 10 MG ORAL T12A 1/2 tab by mouth every 4 hours prn OXYCODONE HCL ER 10 MG ORAL T12A OXYCODONE HCL Inactive FLAGYL 500 MG TAB 1 tablet by mouth bid FLAGYL 500 MG TAB 637199 METRONIDAZOLE Inactive MONISTAT 7 COMBO PACK WOODROW 100 & 2 MG-% (9GM) VAG KIT 1 applicatorful per vagina q pm x 7 MONISTAT 7 COMBO PACK WOODROW 100 & 2 MG-% (9GM) VAG KIT MICONAZOLE NITRATE Inactive BACTRIM DS 800-160 MG TABS 1 twice a day BACTRIM DS 800-160 MG TABS 193902 SULFAMETHOXAZOLE-TRIMETHOPRIM Inactive TRAMADOL HCL 50 MG TABS 1/2-1 tab TID PRN TRAMADOL HCL 50 MG TABS 920205 TRAMADOL HCL Inactive ABILIFY MAINTENA 400 MG IM SUSR 400mg injection every 26 days ABILIFY MAINTENA 400 MG IM SUSR ARIPIPRAZOLE Inactive KLONOPIN 1 MG ORAL TABS 1 tab po TID KLONOPIN 1 MG ORAL TABS 930902 CLONAZEPAM Inactive ADVAIR DISKUS 250-50 MCG/DOSE INH AEPB 1 puff twice a day for asthma ADVAIR DISKUS 250-50 MCG/DOSE INH AEPB FLUTICASONE- SALMETEROL Inactive BENADRYL 25 MG CAP 4 po at bedtime for insomnia BENADRYL 25 MG CAP DIPHENHYDRAMINE HCL Inactive PREDNISONE 20 MG TABS 2 daily for 5 days then 1 daily for 5 days PREDNISONE 20 MG TABS 578133 PREDNISONE Inactive HYDROCODONE-ACETAMINOPHEN 5-325 MG ORAL TABS 1 tab two times a day HYDROCODONE-ACETAMINOPHEN 5-325 MG ORAL TABS 855905 HYDROCODONE-ACETAMINOPHEN Inactive CEFDINIR 300 MG CAPS by mouth twice a day CEFDINIR 300 MG CAPS 720285 CEFDINIR Inactive PREDNISONE 20 MG TAB 2 tabs daily for 3 days, 1 tab daily for 3 days, 1/2 tab daily for 2 days PREDNISONE 20 MG TAB 680816 PREDNISONE Inactive BACTRIM DS 800-160 MG TABS 1 po BID x 7 days BACTRIM DS 800-160 MG TABS 787800 SULFAMETHOXAZOLE-TRIMETHOPRIM Inactive DIFLUCAN 150 MG TABS 1 pill every other day x 2 doses DIFLUCAN 150 MG TABS 215853 FLUCONAZOLE Inactive BACTRIM DS 800-160 MG TABS 1 pill by mouth twice daily BACTRIM DS 800-160 MG TABS 902437 SULFAMETHOXAZOLE-TRIMETHOPRIM Inactive KEFLEX 500 MG CAP 1 po TID x 10 days KEFLEX 500 MG CAP 455740 CEPHALEXIN Inactive Advance Directives Directive Description Start [...] 369 10^3/MM^3 10*3/mm3 142-424 Lab Report: Chlamydia/GC [id number] - Lab chlamydia DNA probe NOT DETECTED NOT DETECTED Lab Report: Chlamydia/GC APTIMA/[id number] - Microbiology Neisseria gonorrhoeae DNA probe NOT DETECTED NOT DETECTED Lab Report: Comp. Metabolic Panel - Chemistry sodium, serum 142 mmol/L 254-243 2258/06/08 carbon dioxide, venous blood 27.6 mmol/L 21.0-32.0 potassium, serum 4.0 mmol/L 3.5-5.2 chloride, serum 105 mmol/L 98-107 blood glucose 95 mg/dL 65-110 urea nitrogen, blood 8 mg/dL 7-18 creatinine, serum 0.75 mg/dL 0.55-1.30 alanine aminotransferase (SGPT), serum 49 U/L 12-78 aspartate aminotransferase (SGOT), serum 28 U/L 15-37 calcium, serum 9.4 mg/dL 8.5-10.1 bilirubin, serum, total 0.30 mg/dL 0.00-1.00 sodium, serum 140 mmol/L 251-116 9423/08/08 carbon dioxide, venous blood 33.7 mmol/L 21.0-32.0 [...] mg/dL Encounters Code Encounter Date Provider Facility CPT-02379 Level 4 Est. Patient 10:20:54 [employer] Suzan Boo [facility] CPT-21746 Level 3 Est. Patient 11:47:37 [employer] Ahmet Carbajal MD [facility] CPT-87449 Level 3 Est. Patient 10:40:11 [employer] Ahmet Carbajal MD [facility] CPT-30573 Level 3 Est. Patient 15:07:06 [employer] Neeraj Collins MD [facility] CPT-87533 Level 4 Est. Patient 14:45:00 [employer] Ahmet Carbajal MD [facility] CPT-98151 Level 3 Est. Patient 13:59:59 CDT Luigi Martínez [facility] CPT-13182 Level 3 Est. Patient 18:18:53 CDT Neeraj Collins MD [facility] CPT-81981 Level 3 Est. Patient 15:50:44 CDT Vishal Hui MD [facility] CPT-99001 Level 3 Est. Patient 11:36:17 CDT Ahmet Carbajal MD [facility] CPT-32114 Level 3 Est. Patient 13:29:16 CDT Vishal Hui MD [facility] CPT-63240 Level 3 Est. Patient 14:27:52 CDT Neeraj Collins MD [facility] CPT-87847 Level 3 Est. Patient 08:56:03 CDT Luigi Martínez [facility] CPT-06311 Level 4 Est. Patient 12:11:48 CDT Fabiola Johnson [facility] CPT-28460 Level 3 New Patient 16:53:37 CDT Albert Caldera MD [facility] CPT-48478 Level 3 Est. Patient 11:25:49 CDT Renzo Thornton DO [facility] CPT-26709 Level 3 Est. Patient 15:22:01 CDT Ahmet Carbajal MD [facility] CPT-14491 Level 4 Est. Patient 09:00:51 [employer] Vishal Hui MD [facility] CPT-99764 Level 3 Est. Patient 11:37:33 [employer] Vishal Hui MD [facility] CPT-43572 Level 3 Est. Patient 08:41:09 [employer] Vishal Hui MD [facility] CPT-90598 Level 4 Est. Patient 10:19:35 [employer] Vishal Hui MD [facility] CPT-19766 Level 3 Est. Patient 13:35:45 CDT Vishal Hui MD [facility] CPT-56800 Level 4 Est. Patient 10:08:37 CDT Vishal Hui MD [facility] CPT-50454 Level 3 Est. Patient 11:22:10 CDT Vishal Hui MD [facility] CPT-68075 Level 3 Est. Patient 11:03:32 CDT Sahara Rodriguez MD [facility]-37294 Level 3 Est. Patient 09:41:35 CDT Vishal Hui MD [facility] CPT-92291 Level 3 Est. Patient 12:00:41 CDT Neeraj Collins MD [facility] CPT-79352 Level 3 Est. Patient 09:16:24 CDT Vishal Hui MD [facility] CPT-77401 Level 4 Est. Patient 13:59:09 CDT Neeraj Collins MD [facility] CPT-35252 Level 3 Est. Patient 15:19:43 CDT Renzo Thornton DO [facility] CPT-00837 Level 3 Est. Patient 18:10:26 CDT Sahara Rodriguez MD [facility] CPT-04275 Level 3 Est. Patient 14:49:50 CDT Vishal Hui MD [facility] CPT-98929 Level 4 Est. Patient 18:41:46 CDT Neeraj Collins MD [facility] CPT-76977 Level 4 Est. Patient 09:18:38 [employer] Vishal Hui MD [facility] CPT-12766 Level 3 Est. Patient 14:43:55 [employer] Vishal Hui MD [facility] CPT-67435 Level 3 Est. Patient 15:26:33 [employer] Sahara Rodriguez MD [facility]-03006 Level 3 Est. Patient 10:32:14 [employer] Vishal Hui MD [facility] CPT-30345 Level 3 Est. Patient 15:12:52 [employer] Vishal Hui MD [facility] CPT-37935 Level 4 Est. Patient 09:19:27 CDT Vishal Hui MD [facility] CPT-53903 Level 3 Est. Patient 15:53:00 CDT Renzo Thornton [facility] CPT-28704 Level 3 Est. Patient 15:50:30 CDT Renzo Thornton [facility] CPT-91543 Level 3 Est. Patient 16:55:24 CDT Vishal Hui MD [facility] Procedures Code Procedure Name Date Entry Date Standard Description CPT-G0439 [facility] Annual Wellness Exam 09:30:58 [employer] CPT-39067 TSH - LAB USE ONLY 08:50:26 [employer] CPT-97713 CBC - LAB USE ONLY 08:50:26 [employer] CPT-80025 Venipuncture Draw Fee 08:50:26 [employer] CPT-58662 Abx/Therapy Injection 17:34:30 [employer] CPT-32365 Nexplanon Removal with Reinsertion 14:09:32 CDT CPT-J7307 Nexplanon (Implant) 14:09:32 CDT CPT-OV Office Visit 14:09:32 CDT CPT-66312 UA w micro - LAB USE ONLY 16:21:13 CDT CPT-88168 Wet Mount - LAB USE ONLY 16:21:13 CDT CPT-65290 First Vx - Ix admin for Medicare patients 14:37:47 CDT CPT-54942 Fluzone Preservative Free Intramuscular Suspension 14:37 :47 CDT CPT-58359 Abx/Therapy Injection 13:54:22 CDT CPT-60673 Abx/Therapy Injection 08:47:09 CDT CPT-71901 Abx/Therapy Injection 13:29:56 CDT CPT-46915 Abx/Therapy Injection 08:36:16 CDT CPT-54843 Wet Mount - LAB USE ONLY 17:44:58 CDT CPT-38578 UA w micro - LAB USE ONLY 17:44:58 CDT CPT-52501 CMP - LAB USE ONLY 17:44:58 CDT CPT-20245 Venipuncture Draw Fee 17:44:58 CDT CPT-57171 Cervical Min 4V - XRAY USE ONLY 09:01:40 CDT CPT-46235 Chest 2V Frontal and Lat - XRAY USE ONLY 11:06:31 CDT CPT-04263 EKG Trac and Interp - XRAY USE ONLY 11:31:43 CDT 08/26 CPT-J3420 Vitamin B12 1000mcg (Cyanocobalamin) 08:10:26 [employer] 04/12 CPT-35654 Abx/Therapy Injection 08:10:26 [employer] CPT-G0438 Initial Annual Wellness Exam 19:01:01 [employer] CPT-J3420 Vitamin B12 1000mcg (Cyanocobalamin) 16:57:46 CDT 08/14 CPT-44648 Recombivax HB Injection Suspension 5 MCG/0.5ML 08:37:50 [employer] CPT-47999 Immunization Single Admin 08:37:50 [employer] CPT-J3420 Vitamin B12 1000mcg (Cyanocobalamin) 08:32:16 [employer] 03/11 CPT-31821 Abx/Therapy Injection 08:32:16 [employer] CPT-47549 Chest 2V Frontal and Lat 11:46:38 [employer] CPT-39908 Venipuncture Draw Fee 09:12:45 [employer] CPT-J3420 Vitamin B12 1000mcg (Cyanocobalamin) 08:50:15 [employer] 02/08 CPT-86508 Abx/Therapy Injection 08:50:15 [employer] CPT-Cryo Cryotherapy 10:19:35 [employer] CPT-000 Give Appropriate Flu Vaccine 09:22:16 CDT CPT-J3420 Vitamin B12 1000mcg (Cyanocobalamin) 19:08:57 CDT 01/11 CPT-34355 Abx/Therapy Injection 19:08:57 CDT CPT-J3420 Vitamin B12 1000mcg (Cyanocobalamin) 08:19:08 CDT 12/11 CPT-66706 Abx/Therapy Injection 08:19:08 CDT CPT-J3420 Vitamin B12 1000mcg (Cyanocobalamin) 14:48:00 CDT 11/09 CPT-94058 Abx/Therapy Injection 14:47:59 CDT CPT-J3420 Vitamin B12 1000mcg (Cyanocobalamin) 08:34:04 CDT 10/09 CPT-59693 Abx/Therapy Injection 08:34:04 CDT CPT-J3420 Vitamin B12 1000mcg (Cyanocobalamin) 09:18:52 CDT 09/11 CPT-88319 Abx/Therapy Injection 09:18:52 CDT CPT-J3420 Vitamin B12 1000mcg (Cyanocobalamin) 08:35:44 CDT 09/04 CPT-56592 Abx/Therapy Injection 08:35:44 CDT CPT-89532 Immunization Single Admin 11:07:16 CDT CPT-40473 Hepatitis B adult IM 11:07:16 CDT CPT-J3420 Vitamin B12 1000mcg (Cyanocobalamin) 11:00:49 CDT 08/28 CPT-J1040 Depo Medrol 80 mg (Methyl Prednisolone Acetate) 11:00: 49 CDT CPT-41694 Abx/Therapy Injection 11:00:49 CDT CPT-J1040 Depo Medrol 80 mg (Methyl Prednisolone Acetate) 09:16: 23 CDT CPT-J3420 Vitamin B12 1000mcg (Cyanocobalamin) 08:27:05 CDT 08/20 CPT-67362 Abx/Therapy Injection 08:27:05 CDT CPT-25425 Recombivax HB Injection Suspension 5 MCG/0.5ML 10:00:41 CDT CPT-20144 Administration single or combination vaccine inc oral 10 :00:41 CDT CPT-49480 Sono transvag pelvis non OB uterus ovaries cervix 16:36: 57 CDT CPT-42737 LS spine comp w obliq 09:50:55 [employer] CPT-99279 Abd compl w upright 09:50:55 [employer] CPT-J1100 Decadron 4mg (Dexamethasone) 15:51:24 [employer] CPT-J1030 Depo Medrol 40 mg (Methyl Prednisolone Acetate) 15:51: 24 [employer] CPT-89309 Abx/Therapy Injection 15:51:24 [employer] CPT-J1100 Decadron 4mg (Dexamethasone) 15:26:33 [employer] CPT-J1030 Depo Medrol 40 mg (Methyl Prednisolone Acetate) 15:26: 33 [employer] CPT-07494 Sono retroperitoneal complete kidneys and bladder 17:15: 30 CDT CPT-89920 Abd compl w upright 16:09:25 CDT CPT-J1100 Decadron 8mg (Dexamethasone) 17:07:57 CDT CPT-30868 Abx/Therapy Injection 17:07:57 CDT CPT-J1100 Decadron 8mg (Dexamethasone) 16:55:24 CDT CPT-86385 Chest 2V Frontal and Lat 16:32:44 CDT
--- OUTSIDE RECORDS SUMMARY | 2016-11-04 18:03 | XMS REPORT | Clinical Summary ---
Author Author Admin, FLOR Organization [email or web address] Address Unknown Phone Unavailable Allergies, Adverse [...] MD Unspecified personality disorder Leukocytosis 288.60 Resolved Vihsal Hui MD Leukocytosis, unspecified UTI 599.0 Resolved Vishal Hui MD Urinary tract infection, site not specified Headache, atypical 784.0 Resolved Albert Caldera MD Headache Elevated blood glucose 790.29 Resolved Vishal Hui MD Other abnormal glucose Polyarthralgia 719.49 Active Vishal Hui MD Pain in joint involving multiple sites Morbid obesity 278.01 Active Juliet Kimbrough MINING MANAGER Morbid obesity 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 Active [...] breath Nocturnal hypoxia 799.02 Active Fabiola Johnson MINING MANAGER Hypoxemia Neck pain 723.1 Resolved Vishal Hui [...] fibula Vaginal discharge 623.5 Active Luigi Martínez MINING MANAGER Leukorrhea, not specified as infective DYSURIA 788.1 [...] Postconcussion syndrome ICD-310.2 Inactive Vishal Hui MD Pneumonia, organism unspecified ICD-486 Inactive Vishal Hui MD Nevus, 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 [...] 6 hours as needed for cough GUAIFENESIN-CODEINE 17334182526 Active Ahmet Carbajal MD Active PREDNISONE 20 MG TABS 2 daily for 5 days then 1 daily for 5 days PREDNISONE 18231235089 Active Ahmet Carbajal MD Active LAMICTAL 100 MG ORAL TABS 1 tab q.d LAMOTRIGINE 14711298708 Active Ahmet Carbajal MD Active BENADRYL 25 MG CAP 4 po at bedtime for insomnia DIPHENHYDRAMINE HCL 40447342042 No Longer Active Ahmet Carbajal MD Active ADVAIR DISKUS 250-50 MCG/DOSE INH AEPB 1 puff twice a day for asthma FLUTICASONE-SALMETEROL 04879337393 No Longer Active Ahmet Carbajal MD Active KLONOPIN 1 MG ORAL TABS 1 tab po TID CLONAZEPAM 32504840195 No Longer Active Ahmet Carbajal MD Active ABILIFY MAINTENA 400 MG IM SUSR 400mg injection every 26 days ARIPIPRAZOLE 57370682532 No Longer Active Ahmet Carbaajl MD Active HALOPERIDOL 10 MG ORAL TABS 1 tab q.d HALOPERIDOL 01624994348 Active Ahmet Carbajal MD Active ASPIRIN 325 MG ORAL TABS 1 tab q.d ASPIRIN 39698051153 Active Ahmet Carbajal MD Active HYDROCODONE-ACETAMINOPHEN 5-325 MG ORAL TABS 1 tab two times a day HYDROCODONE-ACETAMINOPHEN 17558211827 Active Ahmet Carbajal MD Active TRAMADOL HCL 50 MG TABS 1/2-1 tab TID PRN TRAMADOL HCL 73769904575 No Longer Active Ahmet Carbajal MD Active BACTRIM DS 800-160 MG TABS 1 twice a day SULFAMETHOXAZOLE- TRIMETHOPRIM 07815875699 No Longer Active Ahmet Carbajal MD Active PROAIR HFA 108 (90 BASE) MCG/ACT AERS 2 puffs four times a day as needed 2015 ALBUTEROL SULFATE 28512122073 Active Ahmet Carbajal MD Active EQ NICOTINE 21 MG/24HR TRANS PT24 Apply daily to stop smoking NICOTINE 01663228449 Active Ahmet Carbajal MD Active MONISTAT 7 COMBO PACK WOODROW 100 & 2 MG-% (9GM) VAG KIT 1 applicatorful per vagina q pm x 7 MICONAZOLE NITRATE 48784767079 No Longer Active Ahmet Carbajal MD Active FLAGYL 500 MG TAB 1 tablet by mouth bid METRONIDAZOLE 93239035583 No Longer Active Ahmet Carbajal MD Active OXYCODONE HCL ER 10 MG ORAL T12A 1/2 tab by mouth every 4 hours prn OXYCODONE HCL 53954722702 No Longer Active Ahmet Carbajal MD Active METHYLPREDNISOLONE 4 MG ORAL TABS po daily METHYLPREDNISOLONE 90831710710 No Longer Active Ahmet Carbajal MD Active LEVOFLOXACIN 500 MG ORAL TABS po daily LEVOFLOXACIN 52940624479 No Longer Active Ahmet Carbajal MD Active VIIBRYD 10 MG ORAL TABS Take 1 tablet once a day VILAZODONE HCL 92877990138 No Longer Active Ahmet Carbajal MD Active TOPAMAX 50 MG ORAL TABS 1 tab twice daily TOPIRAMATE 68682832456 No Longer Active Ahmet Carbajal MD Active DICLOFENAC SODIUM 50 MG TBEC 1 tablet by mouth four times daily PRN Pain 2015 DICLOFENAC SODIUM 74104148271 No Longer Active Ahmet Carbajal MD Active ADZENYS XR-ODT 6.3 MG ORAL TBED 1 tab po daily for ADHD AMPHETAMINE 27473822547 No Longer Active Ahmet Carbajal MD Active CHANTIX 1 MG TABS 1 twice a day to help quit smoking VARENICLINE TARTRATE 32327481556 No Longer Active Dipika Burgos MD Active CHANTIX STARTING MONTH EARNEST 0.5 MG X 11 & 1 MG X 42 TABS take as directed 2015 VARENICLINE TARTRATE 93982539314 No Longer Active Dipika Burgos MD Active TESSALON PERLES 100 MG CAP 1 to 2 tablets by mouth 3 times daily as needed for cough BENZONATATE 79790448536 No Longer Active Luigi Martínez APRN Active IMITREX 50 MG ORAL TABS 0.5 po x 1 PRN Headache. May repeat dose x 1 in 2 hours if needed SUMATRIPTAN SUCCINATE 31249426548 Active TAMARA Casey Active HYDROCODONE-ACETAMINOPHEN 5-325 MG TABS 1 to 2 four times a day as needed for pain use until can be seen by specialist HYDROCODONE- ACETAMINOPHEN 78709121939 No Longer Active Vishal Hui MD Active PROAIR HFA 108 (90 BASE) MCG/ACT AERS 2 puffs four times a day as needed 2015 ALBUTEROL SULFATE 13593768732 No Longer Active Vishal Hui MD Active PREDNISONE 20 MG TABS 2 daily for 5 days then 1 daily for 5 days PREDNISONE 46799392910 No Longer Active Vishal Hui MD Active ZITHROMAX Z-EARNEST 250 MG TABS 2 today and then 1 daily for 4 days AZITHROMYCIN 57534594663 No Longer Active Vishal Hui MD Active DICLOFENAC POTASSIUM TABS Take 1 tablet twice a day (pt. is not sure of the dose.) DICLOFENAC POTASSIUM TABS 07529343879 No Longer Active Vishal Hui MD Active VERAPAMIL HCL ER 120 MG ORAL CR-TABS Take 1 tablet by mouth twice a day. VERAPAMIL HCL 89431056600 Active Vishal Hui MD Active FLAGYL 500 MG TAB 1 tablet by mouth bid METRONIDAZOLE 34872323918 No Longer Active Vishal Hui MD Active FLUTICASONE PROPIONATE 50 MCG/ACT SUSP 2 sprays each nostril daily before bed. FLUTICASONE PROPIONATE 78541715419 Active Fabiola Johnson APRN Active VALIUM 5 MG TAB Take 1-2 tablets daily DIAZEPAM 70480204421 No Longer Active Fabiola Johnson APRN Active METOPROLOL TARTRATE 25 MG ORAL TABS 1/2 tablet twice daily for heart rate and blood pressure METOPROLOL TARTRATE 07432871955 No Longer Active Fabiola Johnson APRN Active MIRALAX ORAL POWD 17GMS DAILY IN WATER POLYETHYLENE GLYCOL 3350 43815162475 Active Vishal Hui MD Active MIRALAX PACK 1 po qd PRN Constipation POLYETHYLENE GLYCOL 3350 32557566164 No Longer Active Ahmet Carbajal MD Active MINIPRESS 2 MG CAPS 4 cap po at night PRAZOSIN HCL 99147764302 No Longer Active Ahmet Carbajal MD Active PIROXICAM 20 MG CAPS 1 cap po qd PRN Pain PIROXICAM 71569056060 No Longer Active Ahmet Carbajal MD Active TRAMADOL HCL 50 MG TABS 1-2 po TID PRN Pain TRAMADOL HCL 27662871753 No Longer Active Ahmet Carbajal MD Active METOPROLOL TARTRATE 50 MG TAB 1 po bid METOPROLOL TARTRATE 25027218434 No Longer Active Ahmet Carbajal MD Active ABILIFY 15 MG ORAL TABS 1 tab daily ARIPIPRAZOLE 55247573469 No Longer Active Ahmet Carbajal MD Active PROZAC 20 MG ORAL CAPS 1 tab daily FLUOXETINE HCL 41826344425 No Longer Active Ahmet Carbajal MD Active AMBIEN 5 MG ORAL TABS 1 tab at bedtime ZOLPIDEM TARTRATE 05009228417 No Longer Active Ahmet Carbajal MD Active PREDNISONE 20 MG TAB 2 tabs daily for 4 days, 1 tab daily for 4 days, 1/2 tab daily for 4 days PREDNISONE 95355263770 No Longer Active Ahmet Carbajal MD Active KEFLEX 500 MG CAP 1 po TID x 10 days CEPHALEXIN 11349506728 No Longer Active Vishal Hui MD Active SAPHRIS 5 MG SUBL 1 po bid ASENAPINE MALEATE 99535458985 No Longer Active Jillina Fralebron MINING MANAGER Active LATUDA 80 MG TABS Take one by mouth daily LURASIDONE HCL 44236763380 No Longer Active Jillina Frazell MINING MANAGER Active AMLODIPINE BESYLATE 5 MG TABS 1 tablet by mouth daily AMLODIPINE BESYLATE 89589025971 No Longer Active Jillina Fradwightl MINING MANAGER Active AMITRIPTYLINE HCL 100 MG TAB one at hs AMITRIPTYLINE HCL 63045885900 No Longer Active Vishal Hui MD Active TRAZODONE HCL 100 MG TAB take 1 at bedtime TRAZODONE HCL 23957128616 No Longer Active Vishal Hui MD Active VYVANSE 40 MG CAPS 1 daily, LISDEXAMFETAMINE DIMESYLATE 06282813703 No Longer Active Vishal Hui MD Active IBUPROFEN 600 MG TAB 1 po TID PRN IBUPROFEN 39305322641 No Longer Active Vishal Hui MD Active PROZAC 20 MG CAP Take one by mouth daily FLUOXETINE HCL 00619696091 No Longer Active Vishal Hui MD Active ZOFRAN 4 MG TABS 1 po q6hr PRN Nausea ONDANSETRON HCL Active Vishal Hui MD Active BACTRIM DS 800-160 MG TABS 1 pill by mouth twice daily SULFAMETHOXAZOLE-TRIMETHOPRIM 87213208607 No Longer Active Sahara Rodriguez MD PhD Active DIFLUCAN 150 MG TAB 1 tablet by mouth daily FLUCONAZOLE 78979076951 No Longer Active Vishal Hui MD Active TIZANIDINE HCL 4 MG TABS 1 po q6hr PRN Muscle Spasm/Back Pain TIZANIDINE HCL 55573782717 Active Vishal Hui MD Active CLINDAMYCIN HCL 150 MG CAPS 1 four times a day CLINDAMYCIN HCL 26700438058 No Longer Active Neeraj Collins MD Active KEFLEX 500 MG ORAL CAPS 1 cap QID by mouth CEPHALEXIN 91206286654 No Longer Active Neeraj Collins MD Active DIFLUCAN 150 MG TABS 1 pill every other day x 2 doses FLUCONAZOLE 70273206198 No Longer Active Sahara Rodriguez MD PhD Active MELATONIN 3 MG CAPS 2 po q hs MELATONIN 78541922793 No Longer Active Sahara Rodriguez MD PhD Active MULTIVITAMINS CAPS Take one by mouth daily MULTIPLE VITAMIN 81057328826 No Longer Active Sahara Rodriguez MD PhD Active BACTRIM DS 800-160 MG TAB 1 tab by mouth twice daily TRIMETHOPRIM-SULFAMETHOXAZOLE 45389881162 No Longer Active Sahara Rodriguez MD PhD Active [employer] PROBIOTIC ORAL CHEW 2 daily po PROBIOTIC PRODUCT 67833565298 No Longer Active Sahara Rodriguez MD PhD Active BACTRIM DS 800-160 MG TABS 1 po BID x 7 days SULFAMETHOXAZOLE-TRIMETHOPRIM 19916152569 No Longer Active Vishal Hui MD Active CHANTIX STARTING MONTH EARNEST 0.5 MG X 11 & 1 MG X 42 TABS 0.5mg daily for 3 days , then 0.5mg BID for 4 days, then 1mg BID VARENICLINE TARTRATE 75370461036 No Longer Active TAMARA Gray Active VERAPAMIL HCL CR 120 MG TAB CR 1 po bid VERAPAMIL HCL 18794103964 No Longer Active Vishal Hui MD Active METOPROLOL SUCCINATE 50 MG TB24 1 tablet by mouth daily METOPROLOL SUCCINATE 35997535486 No Longer Active Vishal Hui MD Active SAPHRIS 10 MG SUBL 1 tab po bid ASENAPINE MALEATE 55272123665 No Longer Active Vishal Hui MD Active LISINOPRIL 20 MG TABS 1 tab po qd LISINOPRIL 95246392386 No Longer Active Vishal Hui MD Active LATUDA 20 MG TABS Take one by mouth daily LURASIDONE HCL 59771299167 No Longer Active Vishal Hui MD Active TRAZODONE HCL 50 MG TABS 1/2 tab po qd prn for anxiety TRAZODONE HCL 09960629748 No Longer Active Vishal Hui MD Active OMEPRAZOLE 20 MG TBEC 1 po q a.m. 30min prior to first food intake OMEPRAZOLE 60849328205 Active Vishal Hui MD Active RANITIDINE HCL 150 MG CAPS 1 twice a day RANITIDINE HCL 68646084470 Active Jioral Martínez APRN Active LINZESS 290 MCG CAPS Take one by mouth daily LINACLOTIDE 61588222975 No Longer Active Vishal Hui MD Active SAPHRIS 5 MG SUBL 1 tab po qd ASENAPINE MALEATE 10109648747 No Longer Active Vishal Hui MD Active ZALEPLON 10 MG CAPS 1 cap po every other night ZALEPLON 37698278322 No Longer Active Vishal Hui MD Active LYRICA 50 MG CAPS 1 tab po TID PREGABALIN 00935294768 No Longer Active Vishal Hui MD Active LORATADINE 10 MG TABS 1 tab po qd LORATADINE 44216837814 No Longer Active Vishal Hui MD Active VERAPAMIL HCL ER 180 MG CR-TABS 1 tab po bid VERAPAMIL HCL 34089044410 No Longer Active Vishal Hui MD Active MIRALAX POWD 1 capfull once daily POLYETHYLENE GLYCOL 3350 92288319249 No Longer Active Vishal Hui MD Active PREDNISONE 20 MG TABS 1 tab po qd PREDNISONE 28608387892 No Longer Active Renzo Thornton DO Active LEVOFLOXACIN 500 MG TABS 1 tab po qd LEVOFLOXACIN 24805413505 No Longer Active Renzo Thornton DO Active BUSPIRONE HCL 15 MG TABS 1 tab po TID BUSPIRONE HCL 22616279932 No Longer Active Renzo Thornton DO Active BENZTROPINE MESYLATE 1 MG TABS 1 tab po qd BENZTROPINE MESYLATE 16806733286 No Longer Active Renzo Thornton DO Active ATENOLOL 25 MG TABS 1 tab po qd ATENOLOL 49311748747 No Longer Active Renzo Thornton DO Active ESCITALOPRAM OXALATE 20 MG TABS 1 tab po qd ESCITALOPRAM OXALATE 08107339953 No Longer Active Renzo Thornton DO Active ADVAIR DISKUS 250-50 MCG/DOSE AEPB 1 puff BID FLUTICASONE-SALMETEROL 00075485786 No Longer Active Renzo Thornton DO Active PREDNISONE 20 MG TAB 2 tabs daily for 3 days, 1 tab daily for 3 days, 1/2 tab daily for 2 days PREDNISONE 34255122770 No Longer Active Vishal Hui MD Active CEFDINIR 300 MG CAPS by mouth twice a day CEFDINIR 33023830531 No Longer Active Vishal Hui MD Active LANSOPRAZOLE 30 MG CPDR 1 cap po qd LANSOPRAZOLE 35470955508 No Longer Active Vishal Hui MD Active BACLOFEN 20 MG TABS 1 tab po tid BACLOFEN 76866506629 No Longer Active Vishal Hui MD Active ADVAIR DISKUS 250-50 MCG/DOSE AEPB 1 puff BID ADVAIR DISKUS 250-50 MCG/DOSE AEPB FLUTICASONE-SALMETEROL Inactive ESCITALOPRAM OXALATE 20 MG TABS 1 tab po qd ESCITALOPRAM OXALATE 20 MG TABS 226451 ESCITALOPRAM OXALATE Inactive ATENOLOL 25 MG TABS 1 tab po qd ATENOLOL 25 MG TABS 277533 ATENOLOL Inactive BENZTROPINE MESYLATE 1 MG TABS 1 tab po qd BENZTROPINE MESYLATE 1 MG TABS 362959 BENZTROPINE MESYLATE Inactive BUSPIRONE HCL 15 MG TABS 1 tab po TID BUSPIRONE HCL 15 MG TABS 370814 BUSPIRONE HCL Inactive LEVOFLOXACIN 500 MG TABS 1 tab po qd LEVOFLOXACIN 500 MG TABS 248732 LEVOFLOXACIN Inactive PREDNISONE 20 MG TABS 1 tab po qd PREDNISONE 20 MG TABS 662039 PREDNISONE Inactive MIRALAX POWD 1 capfull once daily MIRALAX POWD 947394 POLYETHYLENE GLYCOL 3350 Inactive VERAPAMIL HCL ER 180 MG CR-TABS 1 tab po bid VERAPAMIL HCL ER 180 MG CR-TABS VERAPAMIL HCL Inactive LORATADINE 10 MG TABS 1 tab po qd LORATADINE 10 MG TABS 861487 LORATADINE Inactive LYRICA 50 MG CAPS 1 tab po TID LYRICA 50 MG CAPS PREGABALIN Inactive ZALEPLON 10 MG CAPS 1 cap po every other night ZALEPLON 10 MG CAPS 928026 ZALEPLON Inactive SAPHRIS 5 MG SUBL 1 tab po qd SAPHRIS 5 MG SUBL ASENAPINE MALEATE Inactive TRAZODONE HCL 50 MG TABS 1/2 tab po qd prn for anxiety TRAZODONE HCL 50 MG TABS 667344 TRAZODONE HCL Inactive LATUDA 20 MG TABS Take one by mouth daily LATUDA 20 MG TABS LURASIDONE HCL Inactive LISINOPRIL 20 MG TABS 1 tab po qd LISINOPRIL 20 MG TABS 296943 LISINOPRIL Inactive SAPHRIS 10 MG SUBL 1 [...] twice daily BACTRIM DS 800-160 MG TAB 066434 TRIMETHOPRIM-SULFAMETHOXAZOLE Inactive MULTIVITAMINS CAPS Take one by mouth daily MULTIVITAMINS CAPS MULTIPLE VITAMIN Inactive MELATONIN 3 MG CAPS 2 po q hs MELATONIN 3 MG CAPS 693903 MELATONIN Inactive KEFLEX 500 MG ORAL CAPS 1 cap QID by mouth KEFLEX 500 MG ORAL CAPS 497827 CEPHALEXIN Inactive CLINDAMYCIN HCL 150 MG CAPS 1 four times a day CLINDAMYCIN HCL 150 MG CAPS 154723 CLINDAMYCIN HCL Inactive DIFLUCAN 150 MG TAB 1 tablet by mouth daily DIFLUCAN 150 MG TAB 475868 FLUCONAZOLE Inactive PROZAC 20 MG CAP Take one by mouth daily PROZAC 20 MG CAP 853001 FLUOXETINE HCL Inactive IBUPROFEN 600 MG TAB 1 po TID PRN IBUPROFEN 600 MG TAB 754457 IBUPROFEN Inactive VYVANSE 40 MG CAPS 1 daily, VYVANSE 40 MG CAPS LISDEXAMFETAMINE DIMESYLATE Inactive TRAZODONE HCL 100 MG TAB take 1 at bedtime TRAZODONE HCL 100 MG TAB 217444 TRAZODONE HCL Inactive AMITRIPTYLINE HCL 100 MG TAB one at hs AMITRIPTYLINE HCL 100 MG TAB 775793 AMITRIPTYLINE HCL Inactive AMLODIPINE BESYLATE 5 MG TABS 1 tablet by mouth daily AMLODIPINE BESYLATE 5 MG TABS 375052 AMLODIPINE BESYLATE Inactive LATUDA 80 MG TABS Take one by mouth daily LATUDA 80 MG TABS LURASIDONE HCL Inactive SAPHRIS 5 MG SUBL 1 po bid SAPHRIS 5 MG SUBL ASENAPINE MALEATE Inactive PREDNISONE 20 MG TAB 2 tabs daily for 4 days, 1 tab daily for 4 days, 1/2 tab daily for 4 days PREDNISONE 20 MG TAB 141890 PREDNISONE Inactive AMBIEN 5 MG ORAL TABS 1 tab at bedtime AMBIEN 5 MG ORAL TABS 402239 ZOLPIDEM TARTRATE Inactive PROZAC 20 MG ORAL CAPS 1 tab daily PROZAC 20 MG ORAL CAPS 169375 FLUOXETINE HCL Inactive ABILIFY 15 MG ORAL TABS 1 tab daily ABILIFY 15 MG ORAL TABS 012280 ARIPIPRAZOLE Inactive METOPROLOL TARTRATE 50 MG TAB 1 po bid METOPROLOL TARTRATE 50 MG TAB 807635 METOPROLOL TARTRATE Inactive TRAMADOL HCL 50 MG TABS 1-2 po TID PRN Pain TRAMADOL HCL 50 MG TABS 689167 TRAMADOL HCL Inactive PIROXICAM 20 MG CAPS 1 cap po qd PRN Pain PIROXICAM 20 MG CAPS 291631 PIROXICAM Inactive MINIPRESS 2 MG CAPS 4 cap po at night MINIPRESS 2 MG CAPS 665501 PRAZOSIN HCL Inactive MIRALAX PACK 1 po qd PRN Constipation MIRALAX PACK 658411 POLYETHYLENE GLYCOL 3350 Inactive METOPROLOL TARTRATE 25 MG ORAL TABS 1/2 tablet twice daily for heart rate and blood pressure METOPROLOL TARTRATE 25 MG ORAL TABS 597711 METOPROLOL TARTRATE Inactive VALIUM 5 MG TAB Take 1-2 tablets daily VALIUM 5 MG TAB 679331 DIAZEPAM Inactive FLAGYL 500 MG TAB 1 tablet by mouth bid FLAGYL 500 MG TAB 371694 METRONIDAZOLE Inactive DICLOFENAC POTASSIUM TABS Take 1 tablet twice a day (pt. is not sure of the dose.) DICLOFENAC POTASSIUM TABS DICLOFENAC POTASSIUM TABS Inactive ZITHROMAX Z-EARNEST 250 MG TABS 2 today and then 1 daily for 4 days ZITHROMAX Z-EARNEST 250 MG TABS 0201982 AZITHROMYCIN Inactive PREDNISONE 20 MG TABS 2 daily for 5 days then 1 daily for 5 days PREDNISONE 20 MG TABS 362200 PREDNISONE Inactive PROAIR HFA 108 (90 BASE) MCG/ACT AERS 2 puffs four times a day as needed 2015 PROAIR HFA 108 (90 BASE) MCG/ACT AERS ALBUTEROL SULFATE Inactive HYDROCODONE-ACETAMINOPHEN 5-325 MG TABS 1 to 2 four times a day as needed for pain use until can be seen by specialist HYDROCODONE- ACETAMINOPHEN 5-325 MG TABS 657572 HYDROCODONE-ACETAMINOPHEN Inactive TESSALON PERLES 100 MG CAP 1 to 2 tablets by mouth 3 times daily as needed for cough TESSALON PERLES 100 MG CAP 438861 BENZONATATE Inactive CHANTIX STARTING MONTH EARNEST 0.5 [...] PRN Pain 2015 DICLOFENAC SODIUM 50 MG [facility] [place] 650575 DICLOFENAC SODIUM Inactive TOPAMAX 50 MG ORAL TABS 1 tab twice daily TOPAMAX 50 MG ORAL TABS 230854 TOPIRAMATE Inactive VIIBRYD 10 MG ORAL TABS Take 1 tablet once a day VIIBRYD 10 MG ORAL TABS VILAZODONE HCL Inactive LEVOFLOXACIN 500 MG ORAL TABS po daily LEVOFLOXACIN 500 MG ORAL TABS 283352 LEVOFLOXACIN Inactive METHYLPREDNISOLONE 4 MG ORAL TABS po daily METHYLPREDNISOLONE 4 MG ORAL TABS 241775 METHYLPREDNISOLONE Inactive OXYCODONE HCL ER 10 MG ORAL T12A 1/2 tab by mouth every 4 hours prn OXYCODONE HCL ER 10 MG ORAL T12A OXYCODONE HCL Inactive FLAGYL 500 MG TAB 1 tablet by mouth bid FLAGYL 500 MG TAB 625078 METRONIDAZOLE Inactive MONISTAT 7 COMBO PACK WOODROW 100 & 2 MG-% (9GM) VAG KIT 1 applicatorful per vagina q pm x 7 MONISTAT 7 COMBO PACK WOODROW 100 & 2 MG-% (9GM) VAG KIT MICONAZOLE NITRATE Inactive BACTRIM DS 800-160 MG TABS 1 twice a day BACTRIM DS 800-160 MG TABS 719043 SULFAMETHOXAZOLE-TRIMETHOPRIM Inactive TRAMADOL HCL 50 MG TABS 1/2-1 tab TID PRN TRAMADOL HCL 50 MG TABS 652849 TRAMADOL HCL Inactive ABILIFY MAINTENA 400 MG IM SUSR 400mg injection every 26 days ABILIFY MAINTENA 400 MG IM SUSR ARIPIPRAZOLE Inactive KLONOPIN 1 MG ORAL TABS 1 tab po TID KLONOPIN 1 MG ORAL TABS 625497 CLONAZEPAM Inactive ADVAIR DISKUS 250-50 MCG/DOSE INH AEPB 1 puff twice a day for asthma ADVAIR DISKUS 250-50 MCG/DOSE INH AEPB FLUTICASONE- SALMETEROL Inactive BENADRYL 25 MG CAP 4 po at bedtime for insomnia BENADRYL 25 MG CAP DIPHENHYDRAMINE HCL Inactive CEFDINIR 300 MG CAPS by mouth twice a day CEFDINIR 300 MG CAPS 675598 CEFDINIR Inactive PREDNISONE 20 MG TAB 2 tabs daily for 3 days, 1 tab daily for 3 days, 1/2 tab daily for 2 days PREDNISONE 20 MG TAB 267828 PREDNISONE Inactive BACTRIM DS 800-160 MG TABS 1 po BID x 7 days BACTRIM DS 800-160 MG TABS 19820521 SULFAMETHOXAZOLE-TRIMETHOPRIM Inactive DIFLUCAN 150 MG TABS 1 pill every other day x 2 doses DIFLUCAN 150 MG TABS 794536 FLUCONAZOLE Inactive BACTRIM DS 800-160 MG TABS 1 pill by mouth twice daily BACTRIM DS 800-160 MG TABS 19820521 SULFAMETHOXAZOLE-TRIMETHOPRIM Inactive KEFLEX 500 MG CAP 1 po TID x 10 days KEFLEX 500 MG CAP 517616 CEPHALEXIN Inactive Advance Directives Directive Description Start [...] 369 10^3/MM^3 10*3/mm3 142-424 Lab Report: Chlamydia/GC [id number] - Lab chlamydia DNA probe NOT DETECTED NOT DETECTED Lab Report: Chlamydia/GC APTIMA/[id number] - Microbiology Neisseria gonorrhoeae DNA probe NOT DETECTED NOT DETECTED Lab Report: Comp. Metabolic Panel - Chemistry sodium, serum 139 mmol/L [phone]/01/11 carbon dioxide, venous blood 26.6 mmol/L 21.0-32.0 potassium, serum 4.1 mmol/L 3.5-5.2 chloride, serum 100 mmol/L 98-107 blood glucose 86 mg/dL 65-110 urea nitrogen, blood 16 mg/dL 7-18 creatinine, serum 1.00 mg/dL 0.55-1.30 alanine aminotransferase (SGPT), serum 48 U/L 12-78 aspartate aminotransferase (SGOT), serum 17 U/L 15-37 calcium, serum 9.1 mg/dL 8.5-10.1 bilirubin, serum, total 0.40 mg/dL 0.00-1.00 sodium, serum 142 mmol/L 539-641 5065/06/08 carbon dioxide, venous blood 27.6 mmol/L 21.0-32.0 potassium, serum 4.0 mmol/L 3.5-5.2 chloride, serum 105 mmol/L 98-107 blood glucose 95 mg/dL 65-110 urea nitrogen, blood 8 mg/dL 7-18 creatinine, serum 0.75 mg/dL 0.55-1.30 alanine aminotransferase (SGPT), serum 49 U/L -78 aspartate aminotransferase (SGOT), serum 28 U/L 15-37 calcium, serum 9.4 mg/dL 8.5-10.1 bilirubin, serum, total 0.30 mg/dL 0.00-1.00 sodium, serum 140 mmol/L 245-866 1389/08/08 carbon dioxide, venous blood 33.7 mmol/L 21.0-32.0 [...] mg/dL Encounters Code Encounter Date Provider Facility CPT-86109 Level 3 Est. Patient 10:40:11 PHARMACIST AIDE Ahmet Carbajal MD [facility] CPT-04605 Level 3 Est. Patient 15:07:06 PHARMACIST AIDE Neeraj Collins MD [facility] CPT-86673 Level 4 Est. Patient 14:45:00 PHARMACIST AIDE Ahmet Carbajal MD [facility] CPT-43590 Level 3 Est. Patient 13:59:59 CDT Luigi Martínez [facility] CPT-91872 Level 3 Est. Patient 18:18:53 CDT Neeraj Collins MD [facility] CPT-61165 Level 3 Est. Patient 15:50:44 CDT Vishal Hui MD [facility] CPT-99034 Level 3 Est. Patient 11:36:17 CDT Ahmet Carbajal MD [facility] CPT-97626 Level 3 Est. Patient 13:29:16 CDT Vishal Hui MD [facility] CPT-34184 Level 3 Est. Patient 14:27:52 CDT Neeraj Collins MD [facility] CPT-72853 Level 3 Est. Patient 08:56:03 CDT Luigi Martínez [facility] CPT-89450 Level 4 Est. Patient 12:11:48 CDT Fabiola Johnson [facility] CPT-62762 Level 3 New Patient 16:53:37 CDT Albert Caldera MD [facility] CPT-47978 Level 3 Est. Patient 11:25:49 CDT Renzo Thornton DO [facility] CPT-14092 Level 3 Est. Patient 15:22:01 CDT Ahmet Carbajal MD [facility] CPT-76049 Level 4 Est. Patient 09:00:51 PHARMACIST AIDE Vishal Hui MD [facility] CPT-25950 Level 3 Est. Patient 11:37:33 PHARMACIST AIDE Vishal Hui MD [facility] CPT-70112 Level 3 Est. Patient 08:41:09 PHARMACIST AIDE Vishal Hui MD [facility] CPT-50277 Level 4 Est. Patient 10:19:35 PHARMACIST AIDE Vishal Hui MD [facility] CPT-75827 Level 3 Est. Patient 13:35:45 CDT Vishal Hui MD [facility] CPT-35370 Level 4 Est. Patient 10:08:37 CDT Vishal Hui MD [facility] CPT-14018 Level 3 Est. Patient 11:22:10 CDT Vishal Hui MD [facility] CPT-86189 Level 3 Est. Patient 11:03:32 CDT Sahara Rodriguez MD [facility]-09108 Level 3 Est. Patient 09:41:35 CDT Vishal Hui MD [facility]-64484 Level 3 Est. Patient 12:00:41 CDT Neeraj Collins MD [facility] CPT-94155 Level 3 Est. Patient 09:16:24 CDT Vishal Hui MD [facility] CPT-60247 Level 4 Est. Patient 13:59:09 CDT Neeraj Collins MD [facility] CPT-66350 Level 3 Est. Patient 15:19:43 CDT Renzo Thornton DO [facility] CPT-24267 Level 3 Est. Patient 18:10:26 CDT Sahara Rodriguez MD [facility] CPT-29726 Level 3 Est. Patient 14:49:50 CDT Vishal Hui MD [facility] CPT-36982 Level 4 Est. Patient 18:41:46 CDT Neeraj Collins MD [facility]-20414 Level 4 Est. Patient 09:18:38 PHARMACIST AIDE Vishal Hui MD [facility] CPT-81546 Level 3 Est. Patient 14:43:55 PHARMACIST AIDE Vishal Hui MD [facility] CPT-43884 Level 3 Est. Patient 15:26:33 PHARMACIST AIDE Sahara Rodriguez MD PhD [facility] CPT-31106 Level 3 Est. Patient 10:32:14 PHARMACIST AIDE Vishal Hui MD [facility] CPT-91564 Level 3 Est. Patient 15:12:52 PHARMACIST AIDE Vishal Hui MD [facility] CPT-60631 Level 4 Est. Patient 09:19:27 CDT Vishal Hui MD [facility] CPT-78647 Level 3 Est. Patient 15:53:00 CDT Renzo Thornton [facility] CPT-02756 Level 3 Est. Patient 15:50:30 CDT Renzo Thornton [facility] CPT-89701 Level 3 Est. Patient 16:55:24 CDT Vishal Hui MD [facility] Procedures Code Procedure Name Date Entry Date Standard Description CPT-03602 TSH - LAB USE ONLY 08:50:26 PHARMACIST AIDE CPT-74388 CBC - LAB USE ONLY 08:50:26 PHARMACIST AIDE CPT-30811 Venipuncture Draw Fee 08:50:26 PHARMACIST AIDE CPT-66421 Abx/Therapy Injection 17:34:30 PHARMACIST AIDE CPT-26635 Nexplanon Removal with Reinsertion 14:09:32 CDT CPT-J7307 Nexplanon (Implant) 14:09:32 CDT CPT-OV Office Visit 14:09:32 CDT CPT-01883 UA w micro - LAB USE ONLY 16:21:13 CDT CPT-29627 Wet Mount - LAB USE ONLY 16:21:13 CDT CPT-14943 First Vx - Ix admin for Medicare patients 14:37:47 CDT CPT-29321 Fluzone Preservative Free Intramuscular Suspension 14:37 :47 CDT CPT-37688 Abx/Therapy Injection 13:54:22 CDT CPT-81863 Abx/Therapy Injection 08:47:09 CDT CPT-24907 Abx/Therapy Injection 13:29:56 CDT CPT-84715 Abx/Therapy Injection 08:36:16 CDT CPT-53740 Wet Mount - LAB USE ONLY 17:44:58 CDT CPT-68331 UA w micro - LAB USE ONLY 17:44:58 CDT CPT-55749 CMP - LAB USE ONLY 17:44:58 CDT CPT-67723 Venipuncture Draw Fee 17:44:58 CDT CPT-19401 Cervical Min 4V - XRAY USE ONLY 09:01:40 CDT CPT-11099 Chest 2V Frontal and Lat - XRAY USE ONLY 11:06:31 CDT CPT-34244 EKG Trac and Interp - XRAY USE ONLY 11:31:43 CDT 08/26 CPT-J3420 Vitamin B12 1000mcg (Cyanocobalamin) 08:10:26 PHARMACIST AIDE 04/12 CPT-73428 Abx/Therapy Injection 08:10:26 PHARMACIST AIDE CPT-G0438 Initial Annual Wellness Exam 19:01:01 PHARMACIST AIDE CPT-J3420 Vitamin B12 1000mcg (Cyanocobalamin) 16:57:46 CDT 08/14 CPT-00306 Recombivax HB Injection Suspension 5 MCG/0.5ML 08:37:50 PHARMACIST AIDE CPT-63814 Immunization Single Admin 08:37:50 PHARMACIST AIDE CPT-J3420 Vitamin B12 1000mcg (Cyanocobalamin) 08:32:16 PHARMACIST AIDE 03/11 CPT-98701 Abx/Therapy Injection 08:32:16 PHARMACIST AIDE CPT-13520 Chest 2V Frontal and Lat 11:46:38 PHARMACIST AIDE CPT-44674 Venipuncture Draw Fee 09:12:45 PHARMACIST AIDE CPT-J3420 Vitamin B12 1000mcg (Cyanocobalamin) 08:50:15 PHARMACIST AIDE 02/08 CPT-05575 Abx/Therapy Injection 08:50:15 PHARMACIST AIDE CPT-Cryo Cryotherapy 10:19:35 PHARMACIST AIDE CPT-000 Give Appropriate Flu Vaccine 09:22:16 CDT CPT-J3420 Vitamin B12 1000mcg (Cyanocobalamin) 19:08:57 CDT 01/11 CPT-41238 Abx/Therapy Injection 19:08:57 CDT CPT-J3420 Vitamin B12 1000mcg (Cyanocobalamin) 08:19:08 CDT 12/11 CPT-09466 Abx/Therapy Injection 08:19:08 CDT CPT-J3420 Vitamin B12 1000mcg (Cyanocobalamin) 14:48:00 CDT 11/09 CPT-47580 Abx/Therapy Injection 14:47:59 CDT CPT-J3420 Vitamin B12 1000mcg (Cyanocobalamin) 08:34:04 CDT 10/09 CPT-11616 Abx/Therapy Injection 08:34:04 CDT CPT-J3420 Vitamin B12 1000mcg (Cyanocobalamin) 09:18:52 CDT 09/11 CPT-42289 Abx/Therapy Injection 09:18:52 CDT CPT-J3420 Vitamin B12 1000mcg (Cyanocobalamin) 08:35:44 CDT 09/04 CPT-95637 Abx/Therapy Injection 08:35:44 CDT CPT-03247 Immunization Single Admin 11:07:16 CDT CPT-44237 Hepatitis B adult IM 11:07:16 CDT CPT-J3420 Vitamin B12 1000mcg (Cyanocobalamin) 11:00:49 CDT 08/28 CPT-J1040 Depo Medrol 80 mg (Methyl Prednisolone Acetate) 11:00: 49 CDT CPT-37438 Abx/Therapy Injection 11:00:49 CDT CPT-J1040 Depo Medrol 80 mg (Methyl Prednisolone Acetate) 09:16: 23 CDT CPT-J3420 Vitamin B12 1000mcg (Cyanocobalamin) 08:27:05 CDT 08/20 CPT-57794 Abx/Therapy Injection 08:27:05 CDT CPT-97561 Recombivax HB Injection Suspension 5 MCG/0.5ML 10:00:41 CDT CPT-24454 Administration single or combination vaccine inc oral 10 :00:41 CDT CPT-21779 Sono transvag pelvis non OB uterus ovaries cervix 16:36: 57 CDT CPT-12483 LS spine comp w obliq 09:50:55 PHARMACIST AIDE CPT-14864 Abd compl w upright 09:50:55 PHARMACIST AIDE CPT-J1100 Decadron 4mg (Dexamethasone) 15:51:24 PHARMACIST AIDE CPT-J1030 Depo Medrol 40 mg (Methyl Prednisolone Acetate) 15:51: 24 PHARMACIST AIDE CPT-24714 Abx/Therapy Injection 15:51:24 PHARMACIST AIDE CPT-J1100 Decadron 4mg (Dexamethasone) 15:26:33 PHARMACIST AIDE CPT-J1030 Depo Medrol 40 mg (Methyl Prednisolone Acetate) 15:26: 33 PHARMACIST AIDE CPT-01633 Sono retroperitoneal complete kidneys and bladder 17:15: 30 CDT CPT-10722 Abd compl w upright 16:09:25 CDT CPT-J1100 Decadron 8mg (Dexamethasone) 17:07:57 CDT CPT-37825 Abx/Therapy Injection 17:07:57 CDT CPT-J1100 Decadron 8mg (Dexamethasone) 16:55:24 CDT CPT-44007 Chest 2V Frontal and Lat 16:32:44 CDT
--- OUTSIDE RECORDS SUMMARY | 2016-11-04 18:05 | XMS REPORT | Clinical Summary ---
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 Dependence on other enabling machines and devices [...] ICD-625.9 Jim Hui MD Abscess, skin ICD-682.9 iJm Hui [...] 1 po TID x 10 days CEPHALEXIN 83269600776 No Longer Active Vishal Hui MD Active ABILIFY MAINTENA 400 MG IM SUSR Injection once per month ARIPIPRAZOLE 55697372216 Active Juliet Kimbrough APRN Active PREDNISONE 20 MG TAB 2 tabs daily for 4 days, 1 tab daily for 4 days, 1/2 tab daily for 4 days PREDNISONE 29412274130 Active Vishal Hui MD Active IMITREX 50 MG ORAL TABS 1/2 tab every 6 hours prn SUMATRIPTAN SUCCINATE 33025544275 Active Luigi Martínez APRN Active AMBIEN 5 MG ORAL TABS 1 tab at bedtime ZOLPIDEM TARTRATE 29192793286 Active Luigi Martínez APRN Active PROZAC 20 MG ORAL CAPS 1 tab daily FLUOXETINE HCL 35134789431 Active Luigi Martínez APRN Active ABILIFY 15 MG ORAL TABS 1 tab daily ARIPIPRAZOLE 54671956021 Active Luigi Martínez APRN Active MINIPRESS 2 MG CAPS 4 cap po at night PRAZOSIN HCL 29416944794 Active Luigi Martínez APRN Active TOPAMAX 50 MG ORAL TABS 1 tab twice daily TOPIRAMATE 36047337520 Active Vishal Hui MD Active SAPHRIS 5 MG SUBL 1 po bid ASENAPINE MALEATE 01776980772 No Longer Active Luigi Martínez APRN Active LATUDA 80 MG TABS Take one by mouth daily LURASIDONE HCL 16453434595 No Longer Active Luigi Martínez APRN Active AMLODIPINE BESYLATE 5 MG TABS 1 tablet by mouth daily AMLODIPINE BESYLATE 40697595380 No Longer Active Luigi Martínez APRN Active AMITRIPTYLINE HCL 100 MG TAB one at hs AMITRIPTYLINE HCL 29993920073 No Longer Active Vishal Hui MD Active TRAZODONE HCL 100 MG TAB take 1 at bedtime TRAZODONE HCL 98380524801 No Longer Active Vishal Hui MD Active VYVANSE 40 MG CAPS 1 daily, LISDEXAMFETAMINE DIMESYLATE 57553143109 No Longer Active Vishal Hui MD Active IBUPROFEN 600 MG TAB 1 po TID PRN IBUPROFEN 40450946432 No Longer Active Vishal Hui MD Active MIRALAX PACK 1 po qd PRN Constipation POLYETHYLENE GLYCOL 3350 16016691884 Active Vishal Hui MD Active PROZAC 20 MG CAP Take one by mouth daily FLUOXETINE HCL 82197861722 No Longer Active Vishal Hui MD Active ZOFRAN 4 MG TABS 1 po q6hr PRN Nausea ONDANSETRON HCL Active Vishal Hui MD Active BACTRIM DS 800-160 MG TABS 1 pill by mouth twice daily SULFAMETHOXAZOLE-TRIMETHOPRIM 74374546694 No Longer Active Sahara Rodriguez MD PhD Active DIFLUCAN 150 MG TAB 1 tablet by mouth daily FLUCONAZOLE 39356028182 No Longer Active Vishal Hui MD Active TIZANIDINE HCL 4 MG TABS 1 po q6hr PRN Muscle Spasm/Back Pain TIZANIDINE HCL 41621150679 Active Luigi Martínez APRN Active CLINDAMYCIN HCL 150 MG CAPS 1 four times a day CLINDAMYCIN HCL 97457858191 No Longer Active Neeraj Collins MD Active KEFLEX 500 MG ORAL CAPS 1 cap QID by mouth CEPHALEXIN 04865527224 No Longer Active Neeraj Collins MD Active DIFLUCAN 150 MG TABS 1 pill every other day x 2 doses FLUCONAZOLE 45271142068 No Longer Active Sahara Rodriguez MD PhD Active MELATONIN 3 MG CAPS 2 po q hs MELATONIN 87775117562 No Longer Active Sahara Rodriguez MD PhD Active MULTIVITAMINS CAPS Take one by mouth daily MULTIPLE VITAMIN 07566517784 No Longer Active Sahara Rodriguez MD PhD Active BACTRIM DS 800-160 MG TAB 1 tab by mouth twice daily TRIMETHOPRIM-SULFAMETHOXAZOLE 41007365074 No Longer Active Sahara Rodriguez MD PhD Active [facility] PROBIOTIC ORAL CHEW 2 daily po PROBIOTIC PRODUCT 10849079148 No Longer Active Sahara Rodriguez MD PhD Active BACTRIM DS 800-160 MG TABS 1 po BID x 7 days SULFAMETHOXAZOLE-TRIMETHOPRIM 95459954516 No Longer Active Vishal Hui MD Active CHANTIX STARTING MONTH EARNEST 0.5 MG X 11 & 1 MG X 42 TABS 0.5mg daily for 3 days , then 0.5mg BID for 4 days, then 1mg BID VARENICLINE TARTRATE 92693150535 No Longer Active TAMARA Gray Active METOPROLOL TARTRATE 50 MG TAB 1 po bid METOPROLOL TARTRATE 18944239469 Active Vishal Hui MD Active VERAPAMIL HCL CR 120 MG TAB CR 1 po bid VERAPAMIL HCL 47750232339 No Longer Active Vishal Hui MD Active METOPROLOL SUCCINATE 50 MG TB24 1 tablet by mouth daily METOPROLOL SUCCINATE 96039500847 No Longer Active Vishal Hui MD Active TRAMADOL HCL 50 MG TABS 1-2 po TID PRN Pain TRAMADOL HCL 52086300716 Active Vishal Hui MD Active SAPHRIS 10 MG SUBL 1 tab po bid ASENAPINE MALEATE 68237118472 No Longer Active Vishal Hui MD Active LISINOPRIL 20 MG TABS 1 tab po qd LISINOPRIL 53806008012 No Longer Active Vishal Hui MD Active BENADRYL 25 MG CAP 2 po tid prn anxiety DIPHENHYDRAMINE HCL 77633579596 Active Vishal Hui MD Active LATUDA 20 MG TABS Take one by mouth daily LURASIDONE HCL 70257323826 No Longer Active Vishal Hui MD Active TRAZODONE HCL 50 MG TABS 1/2 tab po qd prn for anxiety TRAZODONE HCL 40336769884 No Longer Active Vishal Hui MD Active PIROXICAM 20 MG CAPS 1 cap po qd PRN Pain PIROXICAM 79211984794 Active Vishal Hui MD Active OMEPRAZOLE 20 MG TBEC 1 po q a.m. 30min prior to first food intake OMEPRAZOLE 23124706368 Active Vishal Hui MD Active RANITIDINE HCL 150 MG CAPS 1 twice a day RANITIDINE HCL 76616759850 Active iVshal Hui MD Active LINZESS 290 MCG CAPS Take one by mouth daily LINACLOTIDE 57884662933 No Longer Active Vishal Hui MD Active SAPHRIS 5 MG SUBL 1 tab po qd ASENAPINE MALEATE 72800289699 No Longer Active Vishal Hui MD Active ZALEPLON 10 MG CAPS 1 cap po every other night ZALEPLON 11376707977 No Longer Active Vishal Hui MD Active LYRICA 50 MG CAPS 1 tab po TID PREGABALIN 95236715226 No Longer Active Vishal Hui MD Active LORATADINE 10 MG TABS 1 tab po qd LORATADINE 15729253788 No Longer Active Vishal Hui MD Active VERAPAMIL HCL ER 180 MG CR-TABS 1 tab po bid VERAPAMIL HCL 40236894997 No Longer Active Vishal Hui MD Active MIRALAX POWD 1 capfull once daily POLYETHYLENE GLYCOL 3350 62473652127 No Longer Active Vishal Hui MD Active PREDNISONE 20 MG TABS 1 tab po qd PREDNISONE 78398096136 No Longer Active Renzo Thornton DO Active LEVOFLOXACIN 500 MG TABS 1 tab po qd LEVOFLOXACIN 53231069154 No Longer Active Renzo Thornton DO Active BUSPIRONE HCL 15 MG TABS 1 tab po TID BUSPIRONE HCL 82126662753 No Longer Active Renzo Thornton DO Active BENZTROPINE MESYLATE 1 MG TABS 1 tab po qd BENZTROPINE MESYLATE 55862113852 No Longer Active Renzo Thornton DO Active ATENOLOL 25 MG TABS 1 tab po qd ATENOLOL 80627956266 No Longer Active Renzo Thornton DO Active ESCITALOPRAM OXALATE 20 MG TABS 1 tab po qd ESCITALOPRAM OXALATE 13285945251 No Longer Active Renzo Thornton DO Active ADVAIR DISKUS 250-50 MCG/DOSE AEPB 1 puff BID FLUTICASONE-SALMETEROL 82061241052 No Longer Active Renzo Thornton DO Active PREDNISONE 20 MG TAB 2 tabs daily for 3 days, 1 tab daily for 3 days, 1/2 tab daily for 2 days PREDNISONE 39888440732 No Longer Active Vishal Hui MD Active CEFDINIR 300 MG CAPS by mouth twice a day CEFDINIR 98117787837 No Longer Active Vishal Hui MD Active LANSOPRAZOLE 30 MG CPDR 1 cap po qd LANSOPRAZOLE 31345941557 No Longer Active Vishal Hui MD Active BACLOFEN 20 MG TABS 1 tab po tid BACLOFEN 18437882954 No Longer Active Vishal Hui MD Active ADVAIR DISKUS 250-50 MCG/DOSE AEPB 1 puff BID ADVAIR DISKUS 250-50 MCG/DOSE AEPB FLUTICASONE-SALMETEROL Inactive ESCITALOPRAM OXALATE 20 MG TABS 1 tab po qd ESCITALOPRAM OXALATE 20 MG TABS 260676 ESCITALOPRAM OXALATE Inactive ATENOLOL 25 MG TABS 1 tab po qd ATENOLOL 25 MG TABS 361534 ATENOLOL Inactive BENZTROPINE MESYLATE 1 MG TABS 1 tab po qd BENZTROPINE MESYLATE 1 MG TABS 472787 BENZTROPINE MESYLATE Inactive BUSPIRONE HCL 15 MG TABS 1 tab po TID BUSPIRONE HCL 15 MG TABS 609921 BUSPIRONE HCL Inactive LEVOFLOXACIN 500 MG TABS 1 tab po qd LEVOFLOXACIN 500 MG TABS 220937 LEVOFLOXACIN Inactive PREDNISONE 20 MG TABS 1 tab po qd PREDNISONE 20 MG TABS 329373 PREDNISONE Inactive MIRALAX POWD 1 capfull once daily MIRALAX POWD 772922 POLYETHYLENE GLYCOL 3350 Inactive VERAPAMIL HCL ER 180 MG CR-TABS 1 tab po bid VERAPAMIL HCL ER 180 MG CR-TABS VERAPAMIL HCL Inactive LORATADINE 10 MG TABS 1 tab po qd LORATADINE 10 MG TABS 942787 LORATADINE Inactive LYRICA 50 MG CAPS 1 tab po TID LYRICA 50 MG CAPS PREGABALIN Inactive ZALEPLON 10 MG CAPS 1 cap po every other night ZALEPLON 10 MG CAPS 613401 ZALEPLON Inactive SAPHRIS 5 MG SUBL 1 tab po qd SAPHRIS 5 MG SUBL ASENAPINE MALEATE Inactive TRAZODONE HCL 50 MG TABS 1/2 tab po qd prn for anxiety TRAZODONE HCL 50 MG TABS 085923 TRAZODONE HCL Inactive LATUDA 20 MG TABS Take one by mouth daily LATUDA 20 MG TABS LURASIDONE HCL Inactive LISINOPRIL 20 MG TABS 1 tab po qd LISINOPRIL 20 MG TABS 977098 LISINOPRIL Inactive SAPHRIS 10 MG SUBL 1 [...] twice daily BACTRIM DS 800-160 MG TAB 197607 TRIMETHOPRIM-SULFAMETHOXAZOLE Inactive MULTIVITAMINS CAPS Take one by mouth daily MULTIVITAMINS CAPS MULTIPLE VITAMIN Inactive MELATONIN 3 MG CAPS 2 po q hs MELATONIN 3 MG CAPS 311672 MELATONIN Inactive KEFLEX 500 MG ORAL CAPS 1 cap QID by mouth KEFLEX 500 MG ORAL CAPS 636681 CEPHALEXIN Inactive CLINDAMYCIN HCL 150 MG CAPS 1 four times a day CLINDAMYCIN HCL 150 MG CAPS 448031 CLINDAMYCIN HCL Inactive DIFLUCAN 150 MG TAB 1 tablet by mouth daily DIFLUCAN 150 MG TAB 011946 FLUCONAZOLE Inactive PROZAC 20 MG CAP Take one by mouth daily PROZAC 20 MG CAP 341216 FLUOXETINE HCL Inactive IBUPROFEN 600 MG TAB 1 po TID PRN IBUPROFEN 600 MG TAB 635036 IBUPROFEN Inactive VYVANSE 40 MG CAPS 1 daily, VYVANSE 40 MG CAPS LISDEXAMFETAMINE DIMESYLATE Inactive TRAZODONE HCL 100 MG TAB take 1 at bedtime TRAZODONE HCL 100 MG TAB 006245 TRAZODONE HCL Inactive AMITRIPTYLINE HCL 100 MG TAB one at hs AMITRIPTYLINE HCL 100 MG TAB 968814 AMITRIPTYLINE HCL Inactive AMLODIPINE BESYLATE 5 MG TABS 1 tablet by mouth daily AMLODIPINE BESYLATE 5 MG TABS 993972 AMLODIPINE BESYLATE Inactive LATUDA 80 MG TABS Take one by mouth daily LATUDA 80 MG TABS LURASIDONE HCL Inactive SAPHRIS 5 MG SUBL 1 po bid SAPHRIS 5 MG SUBL ASENAPINE MALEATE Inactive CEFDINIR 300 MG CAPS by mouth twice a day CEFDINIR 300 MG CAPS 653036 CEFDINIR Inactive PREDNISONE 20 MG TAB 2 tabs daily for 3 days, 1 tab daily for 3 days, 1/2 tab daily for 2 days PREDNISONE 20 MG TAB 721506 PREDNISONE Inactive BACTRIM DS 800-160 MG TABS 1 po BID x 7 days BACTRIM DS 800-160 MG TABS 19820521 SULFAMETHOXAZOLE-TRIMETHOPRIM Inactive DIFLUCAN 150 MG TABS 1 pill every other day x 2 doses DIFLUCAN 150 MG TABS 711375 FLUCONAZOLE Inactive BACTRIM DS 800-160 MG TABS 1 pill by mouth twice daily BACTRIM DS 800-160 MG TABS 19820521 SULFAMETHOXAZOLE-TRIMETHOPRIM Inactive KEFLEX 500 MG CAP 1 po TID x 10 days KEFLEX 500 MG CAP 636535 CEPHALEXIN Inactive Advance Directives Directive Description Start [...] pressure, diastolic - 8462-4 80 mm[Hg] BP mncally blood pressure, systolic - 8480-6 122 mm[Hg] [...] % 11.6-14.8 platelet count 394 10^3/MM^3 10*3/mm3 095-214 6263/01/11 leukocyte count, blood 13.8 10^3/MM^3 10*3/mm3 4.6-10.2 [...] Panel - Chemistry sodium, serum 139 mmol/L 824-396 3162/12/03 carbon dioxide, venous blood 28.5 mmol/L 21.0-32.0 [...] 5.5 % 4.3-6.0 cholesterol, serum 159 mg/dL 586-747 6880/12/03 triglyceride, serum, fasting 118 mg/dL 30-200 HDL [...] ... - Chemistry sodium, serum 140 mmol/L 123-446 4054/05/28 potassium, serum 4.2 mmol/L 3.5-5.2 chloride, serum [...] Panel - Chemistry sodium, serum 141 mmol/L 293-299 2464 potassium, serum 4.3 mmol/L 3.5-5.2 chloride, serum 106 mmol/L 98-107 carbon dioxide, venous blood 25.7 mmol/L 21.0-32.0 blood glucose 119 mg/dL 65-110 urea nitrogen, blood 22 mg/dL 7-18 creatinine, serum 0.90 mg/dL 0.60-1.30 alanine aminotransferase (SGPT), serum 28 U/L 12-78 aspartate aminotransferase (SGOT), serum 13 U/L 15-37 calcium, serum 8.5 mg/dL 8.5-10.1 bilirubin, serum, total 0.20 mg/dL 0.00-1.00 sodium, serum 139 mmol/L 417-251 0203/12/22 carbon dioxide, venous blood 26.8 mmol/L 21.0-32.0 potassium, serum 4.2 mmol/L 3.5-5.2 chloride, serum 103 mmol/L 98-107 blood glucose 115 mg/dL 65-110 urea nitrogen, blood 20 mg/dL 7-18 creatinine, serum 0.90 mg/dL 0.55-1.30 alanine aminotransferase (SGPT), serum 38 U/L -78 aspartate aminotransferase (SGOT), serum 19 U/L 15-37 calcium, serum 8.6 mg/dL 8.5-10.1 bilirubin, serum, total 0.30 mg/dL 0.00-1.00 sodium, serum 139 mmol/L 782-605 3604/01/11 carbon dioxide, venous blood 26.6 mmol/L [...] Rate - Chemistry sodium, serum 139 mmol/L 915-962 8901/12/11 carbon dioxide, venous blood 25.4 mmol/L 21.0-32.0 [...] semiquantitative 5.5 5.0-8.5 Lab Report: Varicella-Zoater Inga IgG,IgM/51209, HEP Be Antibody/556, RUB ... - Serology rubella antibody, serum, IgG 2.88 Encounters Code Encounter Date Provider Facility CPT-87280 Level 4 Est. Patient 09:00:51 MANAGER INDUSTRIAL Vishal Hui MD [facility] CPT-40763 Level 3 Est. Patient 11:37:33 MANAGER INDUSTRIAL Vishal Hui MD [facility] CPT-45321 Level 3 Est. Patient 08:41:09 MANAGER INDUSTRIAL Vishal Hui MD [facility] CPT-42408 Level 4 Est. Patient 10:19:35 MANAGER INDUSTRIAL Vishal Hui MD [facility] CPT-36415 Level 3 Est. Patient 13:35:45 CDT Vishal Hui MD [facility] CPT-50495 Level 4 Est. Patient 10:08:37 CDT Vishal Hui MD [facility]-26964 Level 3 Est. Patient 11:22:10 CDT Vishal Hui MD [facility] CPT-37610 Level 3 Est. Patient 11:03:32 CDT Sahara Rodriguez MD [facility]-02396 Level 3 Est. Patient 09:41:35 CDT Vishal Hui MD [facility]-51888 Level 3 Est. Patient 12:00:41 CDT Neeraj Collins MD [facility]-57287 Level 3 Est. Patient 09:16:24 CDT Vishal Hui MD [facility] CPT-54469 Level 4 Est. Patient 13:59:09 CDT Neeraj Collins MD [facility] CPT-98243 Level 3 Est. Patient 15:19:43 CDT Renzo Thornton DO [facility] CPT-01763 Level 3 Est. Patient 18:10:26 CDT Sahara Rodriguez MD [facility]-97289 Level 3 Est. Patient 14:49:50 CDT Vishal Hui MD [facility] CPT-94338 Level 4 Est. Patient 18:41:46 CDT Neeraj Collins MD [facility] CPT-49469 Level 4 Est. Patient 09:18:38 MANAGER INDUSTRIAL Vishal Hui MD [facility]-94378 Level 3 Est. Patient 14:43:55 MANAGER INDUSTRIAL Vishal Hui MD [facility] CPT-18360 Level 3 Est. Patient 15:26:33 MANAGER INDUSTRIAL Sahara Rodriguez MD PhD [facility]-86476 Level 3 Est. Patient 10:32:14 MANAGER INDUSTRIAL Vishal Hui MD [facility] CPT-81549 Level 3 Est. Patient 15:12:52 MANAGER INDUSTRIAL Vsihal Hui MD [facility] CPT-84795 Level 4 Est. Patient 09:19:27 CDT Vishal Hui MD [facility] CPT-83950 Level 3 Est. Patient 15:53:00 CDT Renzo Thornton [facility] CPT-13341 Level 3 Est. Patient 15:50:30 CDT Renzo Thornton [facility] CPT-38598 Level 3 Est. Patient 16:55:24 CDT Vishal Hui MD [facility] Procedures Code Procedure Name Date Entry Date Standard Description CPT-J3420 Vitamin B12 1000mcg (Cyanocobalamin) 08:10:26 MANAGER INDUSTRIAL 04/12 CPT-78581 Abx/Therapy Injection 08:10:26 MANAGER INDUSTRIAL CPT-G0438 Initial Annual Wellness Exam 19:01:01 MANAGER INDUSTRIAL CPT-J3420 Vitamin B12 1000mcg (Cyanocobalamin) 16:57:46 CDT 08/14 CPT-61798 Recombivax HB Injection Suspension 5 MCG/0.5ML 08:37:50 MANAGER INDUSTRIAL CPT-67737 Immunization Single Admin 08:37:50 MANAGER INDUSTRIAL CPT-J3420 Vitamin B12 1000mcg (Cyanocobalamin) 08:32:16 MANAGER INDUSTRIAL 03/11 CPT-70136 Abx/Therapy Injection 08:32:16 MANAGER INDUSTRIAL CPT-67823 Chest 2V Frontal and Lat 11:46:38 MANAGER INDUSTRIAL CPT-55029 Venipuncture Draw Fee 09:12:45 MANAGER INDUSTRIAL CPT-J3420 Vitamin B12 1000mcg (Cyanocobalamin) 08:50:15 MANAGER INDUSTRIAL 02/08 CPT-19292 Abx/Therapy Injection 08:50:15 MANAGER INDUSTRIAL CPT-Cryo Cryotherapy 10:19:35 MANAGER INDUSTRIAL CPT-000 Give Appropriate Flu Vaccine 09:22:16 CDT CPT-J3420 Vitamin B12 1000mcg (Cyanocobalamin) 19:08:57 CDT 01/11 CPT-06604 Abx/Therapy Injection 19:08:57 CDT CPT-J3420 Vitamin B12 1000mcg (Cyanocobalamin) 08:19:08 CDT 12/11 CPT-76256 Abx/Therapy Injection 08:19:08 CDT CPT-J3420 Vitamin B12 1000mcg (Cyanocobalamin) 14:48:00 CDT 11/09 CPT-10431 Abx/Therapy Injection 14:47:59 CDT CPT-J3420 Vitamin B12 1000mcg (Cyanocobalamin) 08:34:04 CDT 10/09 CPT-17731 Abx/Therapy Injection 08:34:04 CDT CPT-J3420 Vitamin B12 1000mcg (Cyanocobalamin) 09:18:52 CDT 09/11 CPT-21251 Abx/Therapy Injection 09:18:52 CDT CPT-J3420 Vitamin B12 1000mcg (Cyanocobalamin) 08:35:44 CDT 09/04 CPT-76705 Abx/Therapy Injection 08:35:44 CDT CPT-75493 Immunization Single Admin 11:07:16 CDT CPT-81424 Hepatitis B adult IM 11:07:16 CDT CPT-J3420 Vitamin B12 1000mcg (Cyanocobalamin) 11:00:49 CDT 08/28 CPT-J1040 Depo Medrol 80 mg (Methyl Prednisolone Acetate) 11:00: 49 CDT CPT-25532 Abx/Therapy Injection 11:00:49 CDT CPT-J1040 Depo Medrol 80 mg (Methyl Prednisolone Acetate) 09:16: 23 CDT CPT-J3420 Vitamin B12 1000mcg (Cyanocobalamin) 08:27:05 CDT 08/20 CPT-21329 Abx/Therapy Injection 08:27:05 CDT CPT-65572 Recombivax HB Injection Suspension 5 MCG/0.5ML 10:00:41 CDT CPT-78898 Administration single or combination vaccine inc oral 10 :00:41 CDT CPT-47879 Sono transvag pelvis non OB uterus ovaries cervix 16:36: 57 CDT CPT-02526 LS spine comp w obliq 09:50:55 MANAGER INDUSTRIAL CPT-47978 Abd compl w upright 09:50:55 MANAGER INDUSTRIAL CPT-J1100 Decadron 4mg (Dexamethasone) 15:51:24 MANAGER INDUSTRIAL CPT-J1030 Depo Medrol 40 mg (Methyl Prednisolone Acetate) 15:51: 24 MANAGER INDUSTRIAL CPT-36901 Abx/Therapy Injection 15:51:24 MANAGER [employer]RI[employer] CPT-J1100 Decadron 4mg (Dexamethasone) 15:26:33 MANAGER [employer]RI[employer] CPT-J1030 Depo Medrol 40 mg (Methyl Prednisolone Acetate) 15:26: 33 MANAGER [employer] CPT-02897 Sono retroperitoneal complete kidneys and bladder 17:15: 30 CDT CPT-73293 Abd compl w upright 16:09:25 CDT CPT-J1100 Decadron 8mg (Dexamethasone) 17:07:57 CDT CPT-98818 Abx/Therapy Injection 17:07:57 CDT CPT-J1100 Decadron 8mg (Dexamethasone) 16:55:24 CDT CPT-58735 Chest 2V Frontal and Lat 16:32:44 CDT
--- OUTSIDE RECORDS SUMMARY | 2016-11-04 18:07 | XMS REPORT | Clinical Summary ---
Author Author Admin, BRIELLEE Organization [facility] Address Unknown Phone Unavailable Allergies, Adverse Reactions, [...] sites Morbid obesity 278.01 Active Juliet Kimbrough DIAGRAMMER AND SEAMER Morbid obesity 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 Active Juliet [...] breath Nocturnal hypoxia 799.02 Active Fabiola Johnson DIAGRAMMER AND SEAMER Hypoxemia Neck pain 723.1 Resolved Vishal Hui [...] vagina q pm x 7 MICONAZOLE NITRATE 90674296468 Active Pacollina Johnl DIAGRAMMER AND SEAMER Active FLAGYL 500 MG TAB 1 tablet by mouth bid METRONIDAZOLE 73994506115 Active Jillina Frazell DIAGRAMMER AND SEAMER Active TESSALON PERLES 100 MG CAP 1 to 2 tablets by mouth 3 times daily as needed for cough BENZONATATE 81911910288 No Longer Active Tataina Messizell DIAGRAMMER AND SEAMER Active ABILIFY MAINTENA 400 MG IM SUSR 400mg injection every 26 days ARIPIPRAZOLE 94324702811 Active Silvia Casey [employer]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 May repeat dose x 1 in 2 hours if needed SUMATRIPTAN SUCCINATE 20881646714 Active Vishal Hui MD Active OXYCODONE HCL ER 10 MG ORAL T12A 1/2 tab by mouth every 4 hours prn OXYCODONE HCL 05131245734 Active Neeraj Collins MD Active METHYLPREDNISOLONE 4 MG ORAL TABS po daily METHYLPREDNISOLONE 11305126525 Active Vishal Hui MD Active LEVOFLOXACIN 500 MG ORAL TABS po daily LEVOFLOXACIN 47559834991 Active Vishal Hui MD Active CHANTIX STARTING MONTH EARNEST 0.5 MG X 11 & 1 MG X 42 TABS take as directed 2015 VARENICLINE TARTRATE 46866965709 Active Ahmet Carbajal MD Active CHANTIX 1 MG TABS 1 twice a day to help quit smoking VARENICLINE TARTRATE 17688443595 Active Ahmet Carbajal MD Active HYDROCODONE-ACETAMINOPHEN 5-325 MG TABS 1 to 2 four times a day as needed for pain use until can be seen by specialist HYDROCODONE- ACETAMINOPHEN 51497538178 No Longer Active Vishal Hui MD Active PROAIR HFA 108 (90 BASE) MCG/ACT AERS 2 puffs four times a day as needed 2015 ALBUTEROL SULFATE 56833643810 No Longer Active Vishal Hui MD Active PREDNISONE 20 MG TABS 2 daily for 5 days then 1 daily for 5 days PREDNISONE 09720058859 No Longer Active Vishal Hui MD Active ZITHROMAX Z-EARNEST 250 MG TABS 2 today and then 1 daily for 4 days AZITHROMYCIN 55992962629 No Longer Active Vishal Hui MD Active DICLOFENAC SODIUM 50 MG TBEC 1 tablet by mouth four times daily PRN Pain 2015 DICLOFENAC SODIUM 63825342285 Active Vishal Hui MD Active DICLOFENAC POTASSIUM TABS Take 1 tablet twice a day (pt. is not sure of the dose.) DICLOFENAC POTASSIUM TABS 56121827207 No Longer Active Vishal Hui MD Active VERAPAMIL HCL ER 120 MG ORAL CR-TABS Take 1 tablet by mouth twice a day. VERAPAMIL HCL 68825367862 Active Vishal Hui MD Active FLAGYL 500 MG TAB 1 tablet by mouth bid METRONIDAZOLE 67729505949 No Longer Active Vishal Hui MD Active FLUTICASONE PROPIONATE 50 MCG/ACT SUSP 2 sprays each nostril daily before bed. FLUTICASONE PROPIONATE 91226380002 Active Fabiola Johnson APRN Active ADZENYS XR-ODT 6.3 MG ORAL TBED 1 tab po daily for ADHD AMPHETAMINE 16675947581 Active Fabiola Johnson APRN Active BENADRYL 25 MG CAP 4 po at bedtime for insomnia DIPHENHYDRAMINE HCL 71478559059 Active Fabiola Johnson APRN Active KLONOPIN 1 MG ORAL TABS 1 tab po TID CLONAZEPAM 67136404080 Active Fabiola Johnson APRN Active VALIUM 5 MG TAB Take 1-2 tablets daily DIAZEPAM 43868846685 No Longer Active Fabiola Johnson APRN Active METOPROLOL TARTRATE 25 MG ORAL TABS 1/2 tablet twice daily for heart rate and blood pressure METOPROLOL TARTRATE 50517818800 No Longer Active Fabiola Johnson APRN Active MIRALAX ORAL POWD 17GMS DAILY IN WATER POLYETHYLENE GLYCOL 3350 37554107645 Active Vishal Hui MD Active VIIBRYD 10 MG ORAL TABS Take 1 tablet once a day VILAZODONE HCL 83623197124 Active Ahmet Carbajal MD Active MIRALAX PACK 1 po qd PRN Constipation POLYETHYLENE GLYCOL 3350 72881148294 No Longer Active Ahmet Carbajal MD Active MINIPRESS 2 MG CAPS 4 cap po at night PRAZOSIN HCL 69855710638 No Longer Active Ahmet Carbajal MD Active PIROXICAM 20 MG CAPS 1 cap po qd PRN Pain PIROXICAM 58172288067 No Longer Active Ahmet Carbajal MD Active TRAMADOL HCL 50 MG TABS 1-2 po TID PRN Pain TRAMADOL HCL 49509439885 No Longer Active Ahmet Carbajal MD Active METOPROLOL TARTRATE 50 MG TAB 1 po bid METOPROLOL TARTRATE 11868406982 No Longer Active Ahmet Carbajal MD Active ABILIFY 15 MG ORAL TABS 1 tab daily ARIPIPRAZOLE 70880939689 No Longer Active Ahmet Carbajal MD Active PROZAC 20 MG ORAL CAPS 1 tab daily FLUOXETINE HCL 18050122490 No Longer Active Ahmet Carbajal MD Active AMBIEN 5 MG ORAL TABS 1 tab at bedtime ZOLPIDEM TARTRATE 13524730710 No Longer Active Ahmet Carbajal MD Active PREDNISONE 20 MG TAB 2 tabs daily for 4 days, 1 tab daily for 4 days, 1/2 tab daily for 4 days PREDNISONE 34070780747 No Longer Active Ahmet Carbajal MD Active KEFLEX 500 MG CAP 1 po TID x 10 days CEPHALEXIN 33150371601 No Longer Active Vishal Hui MD Active TOPAMAX 50 MG ORAL TABS 1 tab twice daily TOPIRAMATE 68972422679 Active Vishal Hui MD Active SAPHRIS 5 MG SUBL 1 po bid ASENAPINE MALEATE 04797355239 No Longer Active Luigi Martínez DIAGRAMMER AND SEAMER Active LATUDA 80 MG TABS Take one by mouth daily LURASIDONE HCL 31068959270 No Longer Active Jillina Johnl DIAGRAMMER AND SEAMER Active AMLODIPINE BESYLATE 5 MG TABS 1 tablet by mouth daily AMLODIPINE BESYLATE 09564273388 No Longer Active Luigi Martínez DIAGRAMMER AND SEAMER Active AMITRIPTYLINE HCL 100 MG TAB one at hs AMITRIPTYLINE HCL 98536848691 No Longer Active Vishal Hui MD Active TRAZODONE HCL 100 MG TAB take 1 at bedtime TRAZODONE HCL 07478736629 No Longer Active Vishal Hui MD Active VYVANSE 40 MG CAPS 1 daily, LISDEXAMFETAMINE DIMESYLATE 22634689909 No Longer Active Vishal Hui MD Active IBUPROFEN 600 MG TAB 1 po TID PRN IBUPROFEN 15818732656 No Longer Active Vishal Hui MD Active PROZAC 20 MG CAP Take one by mouth daily FLUOXETINE HCL 09776756460 No Longer Active Vishal Hui MD Active ZOFRAN 4 MG TABS 1 po q6hr PRN Nausea ONDANSETRON HCL Active Vishal Hui MD Active BACTRIM DS 800-160 MG TABS 1 pill by mouth twice daily SULFAMETHOXAZOLE-TRIMETHOPRIM 97274198962 No Longer Active Sahara Rodriguez MD PhD Active DIFLUCAN 150 MG TAB 1 tablet by mouth daily FLUCONAZOLE 14339854563 No Longer Active Vishal Hui MD Active TIZANIDINE HCL 4 MG TABS 1 po q6hr PRN Muscle Spasm/Back Pain TIZANIDINE HCL 69231829462 Active Vishal Hui MD Active CLINDAMYCIN HCL 150 MG CAPS 1 four times a day CLINDAMYCIN HCL 61817965913 No Longer Active Neeraj Collins MD Active KEFLEX 500 MG ORAL CAPS 1 cap QID by mouth CEPHALEXIN 81937882341 No Longer Active Neeraj Collins MD Active DIFLUCAN 150 MG TABS 1 pill every other day x 2 doses FLUCONAZOLE 69714756807 No Longer Active Sahara Rodriguez MD PhD Active MELATONIN 3 MG CAPS 2 po q hs MELATONIN 58143606542 No Longer Active Sahara Rodriguez MD PhD Active MULTIVITAMINS CAPS Take one by mouth daily MULTIPLE VITAMIN 61350408090 No Longer Active Sahara Rodriguez MD PhD Active BACTRIM DS 800-160 MG TAB 1 tab by mouth twice daily TRIMETHOPRIM-SULFAMETHOXAZOLE 82258942279 No Longer Active Sahara Rodriguez MD PhD Active [facility] PROBIOTIC ORAL CHEW 2 daily po PROBIOTIC PRODUCT 00747761848 No Longer Active Sahara Rodriguez MD PhD Active BACTRIM DS 800-160 MG TABS 1 po BID x 7 days SULFAMETHOXAZOLE-TRIMETHOPRIM 51176260202 No Longer Active Vishal Hui MD Active CHANTIX STARTING MONTH EARNEST 0.5 MG X 11 & 1 MG X 42 TABS 0.5mg daily for 3 days , then 0.5mg BID for 4 days, then 1mg BID VARENICLINE TARTRATE 56169970334 No Longer Active TAMARA Gray Active VERAPAMIL HCL CR 120 MG TAB CR 1 po bid VERAPAMIL HCL 45663323260 No Longer Active Vishal Hui MD Active METOPROLOL SUCCINATE 50 MG TB24 1 tablet by mouth daily METOPROLOL SUCCINATE 95384483436 No Longer Active Vishal Hui MD Active SAPHRIS 10 MG SUBL 1 tab po bid ASENAPINE MALEATE 46445342470 No Longer Active Vishal Hui MD Active LISINOPRIL 20 MG TABS 1 tab po qd LISINOPRIL 30334006664 No Longer Active Vishal Hui MD Active LATUDA 20 MG TABS Take one by mouth daily LURASIDONE HCL 99221636978 No Longer Active Vishal Hui MD Active TRAZODONE HCL 50 MG TABS 1/2 tab po qd prn for anxiety TRAZODONE HCL 40934250357 No Longer Active Vishal Hui MD Active OMEPRAZOLE 20 MG TBEC 1 po q a.m. 30min prior to first food intake OMEPRAZOLE 33164533380 Active Vishal Hui MD Active RANITIDINE HCL 150 MG CAPS 1 twice a day RANITIDINE HCL 44042464072 Active Jillina Messidwightl DIAGRAMMER AND SEAMER Active LINZESS 290 MCG CAPS Take one by mouth daily LINACLOTIDE 33718325239 No Longer Active Vishal Hui MD Active SAPHRIS 5 MG SUBL 1 tab po qd ASENAPINE MALEATE 17993845214 No Longer Active Vishal Hui MD Active ZALEPLON 10 MG CAPS 1 cap po every other night ZALEPLON 45609953181 No Longer Active Vishal Hui MD Active LYRICA 50 MG CAPS 1 tab po TID PREGABALIN 35554164256 No Longer Active Vishal Hui MD Active LORATADINE 10 MG TABS 1 tab po qd LORATADINE 00286133614 No Longer Active Vishal Hui MD Active VERAPAMIL HCL ER 180 MG CR-TABS 1 tab po bid VERAPAMIL HCL 90999862155 No Longer Active Vishal Hui MD Active MIRALAX POWD 1 capfull once daily POLYETHYLENE GLYCOL 3350 59859774795 No Longer Active Vishal Hui MD Active PREDNISONE 20 MG TABS 1 tab po qd PREDNISONE 39317894178 No Longer Active Renzo Thornton DO Active LEVOFLOXACIN 500 MG TABS 1 tab po qd LEVOFLOXACIN 56134911954 No Longer Active Renzo Thornton DO Active BUSPIRONE HCL 15 MG TABS 1 tab po TID BUSPIRONE HCL 81035915330 No Longer Active Renzo Thornton DO Active BENZTROPINE MESYLATE 1 MG TABS 1 tab po qd BENZTROPINE MESYLATE 29790077826 No Longer Active Renzo Thornton DO Active ATENOLOL 25 MG TABS 1 tab po qd ATENOLOL 45975017280 No Longer Active Renzo Thornton DO Active ESCITALOPRAM OXALATE 20 MG TABS 1 tab po qd ESCITALOPRAM OXALATE 70040678808 No Longer Active Renzo Thornton DO Active ADVAIR DISKUS 250-50 MCG/DOSE AEPB 1 puff BID FLUTICASONE-SALMETEROL 65905979079 No Longer Active Renzo Thornton DO Active PREDNISONE 20 MG TAB 2 tabs daily for 3 days, 1 tab daily for 3 days, 1/2 tab daily for 2 days PREDNISONE 71181260307 No Longer Active Vishal Hui MD Active CEFDINIR 300 MG CAPS by mouth twice a day CEFDINIR 89247612918 No Longer Active Vishal Hui MD Active LANSOPRAZOLE 30 MG CPDR 1 cap po qd LANSOPRAZOLE 66307805467 No Longer Active Vishal Hui MD Active BACLOFEN 20 MG TABS 1 tab po tid BACLOFEN 88493880168 No Longer Active Vishal Hui MD Active ADVAIR DISKUS 250-50 MCG/DOSE AEPB 1 puff BID ADVAIR DISKUS 250-50 MCG/DOSE AEPB FLUTICASONE-SALMETEROL Inactive ESCITALOPRAM OXALATE 20 MG TABS 1 tab po qd ESCITALOPRAM OXALATE 20 MG TABS 933742 ESCITALOPRAM OXALATE Inactive ATENOLOL 25 MG TABS 1 tab po qd ATENOLOL 25 MG TABS 843815 ATENOLOL Inactive BENZTROPINE MESYLATE 1 MG TABS 1 tab po qd BENZTROPINE MESYLATE 1 MG TABS 383152 BENZTROPINE MESYLATE Inactive BUSPIRONE HCL 15 MG TABS 1 tab po TID BUSPIRONE HCL 15 MG TABS 219976 BUSPIRONE HCL Inactive LEVOFLOXACIN 500 MG TABS 1 tab po qd LEVOFLOXACIN 500 MG TABS 547096 LEVOFLOXACIN Inactive PREDNISONE 20 MG TABS 1 tab po qd PREDNISONE 20 MG TABS 474504 PREDNISONE Inactive MIRALAX POWD 1 capfull once daily MIRALAX POWD 625373 POLYETHYLENE GLYCOL 3350 Inactive VERAPAMIL HCL ER 180 MG CR-TABS 1 tab po bid VERAPAMIL HCL ER 180 MG CR-TABS VERAPAMIL HCL Inactive LORATADINE 10 MG TABS 1 tab po qd LORATADINE 10 MG TABS 291414 LORATADINE Inactive LYRICA 50 MG CAPS 1 tab po TID LYRICA 50 MG CAPS PREGABALIN Inactive ZALEPLON 10 MG CAPS 1 cap po every other night ZALEPLON 10 MG CAPS 585194 ZALEPLON Inactive SAPHRIS 5 MG SUBL 1 tab po qd SAPHRIS 5 MG SUBL ASENAPINE MALEATE Inactive TRAZODONE HCL 50 MG TABS 1/2 tab po qd prn for anxiety TRAZODONE HCL 50 MG TABS 741947 TRAZODONE HCL Inactive LATUDA 20 MG TABS Take one by mouth daily LATUDA 20 MG TABS LURASIDONE HCL Inactive LISINOPRIL 20 MG TABS 1 tab po qd LISINOPRIL 20 MG TABS 645013 LISINOPRIL Inactive SAPHRIS 10 MG SUBL 1 [...] twice daily BACTRIM DS 800-160 MG TAB 795069 TRIMETHOPRIM-SULFAMETHOXAZOLE Inactive MULTIVITAMINS CAPS Take one by mouth daily MULTIVITAMINS CAPS MULTIPLE VITAMIN Inactive MELATONIN 3 MG CAPS 2 po q hs MELATONIN 3 MG CAPS 165661 MELATONIN Inactive KEFLEX 500 MG ORAL CAPS 1 cap QID by mouth KEFLEX 500 MG ORAL CAPS 954752 CEPHALEXIN Inactive CLINDAMYCIN HCL 150 MG CAPS 1 four times a day CLINDAMYCIN HCL 150 MG CAPS 443806 CLINDAMYCIN HCL Inactive DIFLUCAN 150 MG TAB 1 tablet by mouth daily DIFLUCAN 150 MG TAB 031145 FLUCONAZOLE Inactive PROZAC 20 MG CAP Take one by mouth daily PROZAC 20 MG CAP 737022 FLUOXETINE HCL Inactive IBUPROFEN 600 MG TAB 1 po TID PRN IBUPROFEN 600 MG TAB 515056 IBUPROFEN Inactive VYVANSE 40 MG CAPS 1 daily, VYVANSE 40 MG CAPS LISDEXAMFETAMINE DIMESYLATE Inactive TRAZODONE HCL 100 MG TAB take 1 at bedtime TRAZODONE HCL 100 MG TAB 660575 TRAZODONE HCL Inactive AMITRIPTYLINE HCL 100 MG TAB one at hs AMITRIPTYLINE HCL 100 MG TAB 946779 AMITRIPTYLINE HCL Inactive AMLODIPINE BESYLATE 5 MG TABS 1 tablet by mouth daily AMLODIPINE BESYLATE 5 MG TABS 360211 AMLODIPINE BESYLATE Inactive LATUDA 80 MG TABS Take one by mouth daily LATUDA 80 MG TABS LURASIDONE HCL Inactive SAPHRIS 5 MG SUBL 1 po bid SAPHRIS 5 MG SUBL ASENAPINE MALEATE Inactive PREDNISONE 20 MG TAB 2 tabs daily for 4 days, 1 tab daily for 4 days, 1/2 tab daily for 4 days PREDNISONE 20 MG TAB 975443 PREDNISONE Inactive AMBIEN 5 MG ORAL TABS 1 tab at bedtime AMBIEN 5 MG ORAL TABS 437084 ZOLPIDEM TARTRATE Inactive PROZAC 20 MG ORAL CAPS 1 tab daily PROZAC 20 MG ORAL CAPS 892177 FLUOXETINE HCL Inactive ABILIFY 15 MG ORAL TABS 1 tab daily ABILIFY 15 MG ORAL TABS 841813 ARIPIPRAZOLE Inactive METOPROLOL TARTRATE 50 MG TAB 1 po bid METOPROLOL TARTRATE 50 MG TAB 999658 METOPROLOL TARTRATE Inactive TRAMADOL HCL 50 MG TABS 1-2 po TID PRN Pain TRAMADOL HCL 50 MG TABS 181072 TRAMADOL HCL Inactive PIROXICAM 20 MG CAPS 1 cap po qd PRN Pain PIROXICAM 20 MG CAPS 182981 PIROXICAM Inactive MINIPRESS 2 MG CAPS 4 cap po at night MINIPRESS 2 MG CAPS 116712 PRAZOSIN HCL Inactive MIRALAX PACK 1 po qd PRN Constipation MIRALAX PACK 627548 POLYETHYLENE GLYCOL 3350 Inactive METOPROLOL TARTRATE 25 MG ORAL TABS 1/2 tablet twice daily for heart rate and blood pressure METOPROLOL TARTRATE 25 MG ORAL TABS 423260 METOPROLOL TARTRATE Inactive VALIUM 5 MG TAB Take 1-2 tablets daily VALIUM 5 MG TAB 430755 DIAZEPAM Inactive FLAGYL 500 MG TAB 1 tablet by mouth bid FLAGYL 500 MG TAB 733190 METRONIDAZOLE Inactive DICLOFENAC POTASSIUM TABS Take 1 tablet twice a day (pt. is not sure of the dose.) DICLOFENAC POTASSIUM TABS DICLOFENAC POTASSIUM TABS Inactive ZITHROMAX Z-EARNEST 250 MG TABS 2 today and then 1 daily for 4 days ZITHROMAX Z-EARNEST 250 MG TABS 2065137 AZITHROMYCIN Inactive PREDNISONE 20 MG TABS 2 daily for 5 days then 1 daily for 5 days PREDNISONE 20 MG TABS 185980 PREDNISONE Inactive PROAIR HFA 108 (90 BASE) MCG/ACT AERS 2 puffs four times a day as needed 2015 PROAIR HFA 108 (90 BASE) MCG/ACT AERS ALBUTEROL SULFATE Inactive HYDROCODONE-ACETAMINOPHEN 5-325 MG TABS 1 to 2 four times a day as needed for pain use until can be seen by specialist HYDROCODONE- ACETAMINOPHEN 5-325 MG TABS 569784 HYDROCODONE-ACETAMINOPHEN Inactive TESSALON PERLES 100 MG CAP 1 to 2 tablets by mouth 3 times daily as needed for cough TESSALON PERLES 100 MG CAP 503234 BENZONATATE Inactive CEFDINIR 300 MG CAPS by mouth twice a day CEFDINIR 300 MG CAPS 235887 CEFDINIR Inactive PREDNISONE 20 MG TAB 2 tabs daily for 3 days, 1 tab daily for 3 days, 1/2 tab daily for 2 days PREDNISONE 20 MG TAB 443868 PREDNISONE Inactive BACTRIM DS 800-160 MG TABS 1 po BID x 7 days BACTRIM DS 800-160 MG TABS 19820521 SULFAMETHOXAZOLE-TRIMETHOPRIM Inactive DIFLUCAN 150 MG TABS 1 pill every other day x 2 doses DIFLUCAN 150 MG TABS 793835 FLUCONAZOLE Inactive BACTRIM DS 800-160 MG TABS 1 pill by mouth twice daily BACTRIM DS 800-160 MG TABS 19820521 SULFAMETHOXAZOLE-TRIMETHOPRIM Inactive KEFLEX 500 MG CAP 1 po TID x 10 days KEFLEX 500 MG CAP 453677 CEPHALEXIN Inactive Advance Directives Directive Description Start [...] % 11.6-14.8 platelet count 394 10^3/MM^3 10*3/mm3 712-265 2313/01/11 leukocyte count, blood 13.8 10^3/MM^3 10*3/mm3 4.6-10.2 [...] Panel - Chemistry sodium, serum 139 mmol/L 813-502 6763/12/03 carbon dioxide, venous blood 28.5 mmol/L 21.0-32.0 [...] 5.5 % 4.3-6.0 cholesterol, serum 159 mg/dL 413-248 5663/12/03 triglyceride, serum, fasting 118 mg/dL 30-200 HDL [...] 362 10^3/MM^3 10*3/mm3 142-424 Lab Report: Chlamydia/GC APTIMA/[id number] - Lab chlamydia DNA probe NOT DETECTED NOT DETECTED Lab Report: Chlamydia/GC APTIMA/[id number] - Microbiology Neisseria gonorrhoeae DNA probe NOT DETECTED NOT DETECTED Lab Report: Comp. Metabolic Panel - Chemistry sodium, serum 140 mmol/L 780-192 6835/08/08 carbon dioxide, venous blood 33.7 mmol/L 21.0-32.0 potassium, serum 5.0 mmol/L 3.5-5.2 chloride, serum 103 mmol/L 98-107 blood glucose 80 mg/dL 65-110 urea nitrogen, blood 13 mg/dL 7-18 creatinine, serum 0.88 mg/dL 0.55-1.30 alanine aminotransferase (SGPT), serum 54 U/L -78 aspartate aminotransferase (SGOT), serum 29 U/L 15-37 calcium, serum 9.7 mg/dL 8.5-10.1 bilirubin, serum, total 0.30 mg/dL 0.00-1.00 sodium, serum 139 mmol/L 633-068 9392/12/22 carbon dioxide, venous blood 26.8 mmol/L 21.0-32.0 potassium, serum 4.2 mmol/L 3.5-5.2 chloride, serum 103 mmol/L 98-107 blood glucose 115 mg/dL 65-110 urea nitrogen, blood 20 mg/dL 7-18 creatinine, serum 0.90 mg/dL 0.55-1.30 alanine aminotransferase (SGPT), serum 38 U/L aspartate aminotransferase (SGOT), serum 19 U/L 15-37 calcium, serum 8.6 mg/dL 8.5-10.1 bilirubin, serum, total 0.30 mg/dL 0.00-1.00 sodium, serum 139 mmol/L 388-691 7330/01/11 carbon dioxide, venous blood 26.6 mmol/L 21.0-32.0 potassium, serum 4.1 mmol/L 3.5-5.2 chloride, serum 100 mmol/L 98-107 blood glucose 86 mg/dL 65-110 urea nitrogen, blood 16 mg/dL 7-18 creatinine, serum 1.00 mg/dL 0.55-1.30 alanine aminotransferase (SGPT), serum 48 U/L -78 aspartate aminotransferase (SGOT), serum 17 U/L 15-37 calcium, serum 9.1 mg/dL 8.5-10.1 bilirubin, serum, total 0.40 mg/dL 0.00-1.00 sodium, serum 142 mmol/L 824-874 2993/06/08 carbon dioxide, venous blood 27.6 mmol/L 21.0-32.0 [...] Rate - Chemistry sodium, serum 139 mmol/L 098-172 6194/12/11 carbon dioxide, venous blood 25.4 mmol/L 21.0-32.0 [...] mg/dL Encounters Code Encounter Date Provider Facility CPT-55967 Level 3 Est. Patient 13:59:59 CDT Luigi Martínez [facility] CPT-94973 Level 3 Est. Patient 18:18:53 CDT Neeraj Collins MD [facility] CPT-45524 Level 3 Est. Patient 15:50:44 CDT Vishal Hui MD [facility] CPT-85206 Level 3 Est. Patient 11:36:17 CDT Ahmet Carbajal MD [facility] CPT-20905 Level 3 Est. Patient 13:29:16 CDT Vishal Hui MD [facility] CPT-18365 Level 3 Est. Patient 14:27:52 CDT Neeraj Collins MD [facility] CPT-87329 Level 3 Est. Patient 08:56:03 CDT Luigi Martínez [facility] CPT-50659 Level 4 Est. Patient 12:11:48 CDT Fabiola Johnson [facility] CPT-67886 Level 3 New Patient 16:53:37 CDT Albert Caldera MD [facility] CPT-84638 Level 3 Est. Patient 11:25:49 CDT Renzo Thornton DO [facility] CPT-52660 Level 3 Est. Patient 15:22:01 CDT Ahmet Carbajal MD [facility] CPT-25971 Level 4 Est. Patient 09:00:51 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 Vishal Hui MD [facility] CPT-09361 Level 3 Est. Patient 11:37:33 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 Vishal Hui MD [facility] CPT-16823 Level 3 Est. Patient 08:41:09 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 Vishal Hui MD [facility] CPT-32362 Level 4 Est. Patient 10:19:35 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 Vishal Hui MD [facility] CPT-42817 Level 3 Est. Patient 13:35:45 CDT Vishal Hui MD [facility] CPT-93622 Level 4 Est. Patient 10:08:37 CDT Vishal Hui MD [facility] CPT-01310 Level 3 Est. Patient 11:22:10 CDT Vishal Hui MD [facility] CPT-50202 Level 3 Est. Patient 11:03:32 CDT Sahara Rodriguez MD [facility]-19347 Level 3 Est. Patient 09:41:35 CDT Vishal Hui MD [facility] CPT-22991 Level 3 Est. Patient 12:00:41 CDT Neeraj Collins MD [facility]-46398 Level 3 Est. Patient 09:16:24 CDT Vishal Hui MD [facility] CPT-30233 Level 4 Est. Patient 13:59:09 CDT Neeraj Collins MD [facility]-48934 Level 3 Est. Patient 15:19:43 CDT Renzo Thornton DO [facility] CPT-09851 Level 3 Est. Patient 18:10:26 CDT Sahara Rodriguez MD [facility]-51841 Level 3 Est. Patient 14:49:50 CDT Vishal Hui MD [facility] CPT-50648 Level 4 Est. Patient 18:41:46 CDT Neeraj Collins MD [facility] CPT-25674 Level 4 Est. Patient 09:18:38 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 Vishal Hui MD [facility] CPT-53722 Level 3 Est. Patient 14:43:55 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 Vishal Hui MD [facility]-97763 Level 3 Est. Patient 15:26:33 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 Sahara Rodriguez MD PhD [facility]-77093 Level 3 Est. Patient 10:32:14 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 Vishal Hui MD [facility] CPT-74471 Level 3 Est. Patient 15:12:52 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 Vishal Hui MD [facility] CPT-35844 Level 4 Est. Patient 09:19:27 CDT Vishal Hui MD [facility] CPT-90868 Level 3 Est. Patient 15:53:00 CDT Renzo Thornton [facility] CPT-18747 Level 3 Est. Patient 15:50:30 CDT Renzo Thornton [facility] CPT-73952 Level 3 Est. Patient 16:55:24 CDT Vishal Hui MD [facility] Procedures Code Procedure Name Date Entry Date Standard Description CPT-63560 UA w micro - LAB USE ONLY 16:21:13 CDT CPT-41490 Wet Mount - LAB USE ONLY 16:21:13 CDT CPT-76685 First Vx - Ix admin for Medicare patients 14:37:47 CDT CPT-70372 Fluzone Preservative Free Intramuscular Suspension 14:37 :47 CDT CPT-44201 Abx/Therapy Injection 13:54:22 CDT CPT-10163 Abx/Therapy Injection 08:47:09 CDT CPT-98005 Abx/Therapy Injection 13:29:56 CDT CPT-31391 Abx/Therapy Injection 08:36:16 CDT CPT-32191 Wet Mount - LAB USE ONLY 17:44:58 CDT CPT-29629 UA w micro - LAB USE ONLY 17:44:58 CDT CPT-66003 CMP - LAB USE ONLY 17:44:58 CDT CPT-98013 Venipuncture Draw Fee 17:44:58 CDT CPT-22610 Cervical Min 4V - XRAY USE ONLY 09:01:40 CDT CPT-51325 Chest 2V Frontal and Lat - XRAY USE ONLY 11:06:31 CDT CPT-33707 EKG Trac and Interp - XRAY USE ONLY 11:31:43 CDT 08/26 CPT-J3420 Vitamin B12 1000mcg (Cyanocobalamin) 08:10:26 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 04/12 CPT-09126 Abx/Therapy Injection 08:10:26 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 CPT-G0438 Initial Annual Wellness Exam 19:01:01 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 CPT-J3420 Vitamin B12 1000mcg (Cyanocobalamin) 16:57:46 CDT 08/14 CPT-50114 Recombivax HB Injection Suspension 5 MCG/0.5ML 08:37:50 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 CPT-60147 Immunization Single Admin 08:37:50 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 CPT-J3420 Vitamin B12 1000mcg (Cyanocobalamin) 08:32:16 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 03/11 CPT-00884 Abx/Therapy Injection 08:32:16 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 CPT-63882 Chest 2V Frontal and Lat 11:46:38 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 CPT-00198 Venipuncture Draw Fee 09:12:45 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 CPT-J3420 Vitamin B12 1000mcg (Cyanocobalamin) 08:50:15 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 02/08 CPT-29607 Abx/Therapy Injection 08:50:15 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 CPT-Cryo Cryotherapy 10:19:35 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 CPT-000 Give Appropriate Flu Vaccine 09:22:16 CDT CPT-J3420 Vitamin B12 1000mcg (Cyanocobalamin) 19:08:57 CDT 01/11 CPT-07656 Abx/Therapy Injection 19:08:57 CDT CPT-J3420 Vitamin B12 1000mcg (Cyanocobalamin) 08:19:08 CDT 12/11 CPT-32832 Abx/Therapy Injection 08:19:08 CDT CPT-J3420 Vitamin B12 1000mcg (Cyanocobalamin) 14:48:00 CDT 11/09 CPT-98160 Abx/Therapy Injection 14:47:59 CDT CPT-J3420 Vitamin B12 1000mcg (Cyanocobalamin) 08:34:04 CDT 10/09 CPT-49186 Abx/Therapy Injection 08:34:04 CDT CPT-J3420 Vitamin B12 1000mcg (Cyanocobalamin) 09:18:52 CDT 09/11 CPT-99021 Abx/Therapy Injection 09:18:52 CDT CPT-J3420 Vitamin B12 1000mcg (Cyanocobalamin) 08:35:44 CDT 09/04 CPT-92682 Abx/Therapy Injection 08:35:44 CDT CPT-26700 Immunization Single Admin 11:07:16 CDT CPT-35151 Hepatitis B adult IM 11:07:16 CDT CPT-J3420 Vitamin B12 1000mcg (Cyanocobalamin) 11:00:49 CDT 08/28 CPT-J1040 Depo Medrol 80 mg (Methyl Prednisolone Acetate) 11:00: 49 CDT CPT-08611 Abx/Therapy Injection 11:00:49 CDT CPT-J1040 Depo Medrol 80 mg (Methyl Prednisolone Acetate) 09:16: 23 CDT CPT-J3420 Vitamin B12 1000mcg (Cyanocobalamin) 08:27:05 CDT 08/20 CPT-00615 Abx/Therapy Injection 08:27:05 CDT CPT-34540 Recombivax HB Injection Suspension 5 MCG/0.5ML 10:00:41 CDT CPT-17351 Administration single or combination vaccine inc oral 10 :00:41 CDT CPT-42316 Sono transvag pelvis non OB uterus ovaries cervix 16:36: 57 CDT CPT-66169 LS spine comp w obliq 09:50:55 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 CPT-42584 Abd compl w upright 09:50:55 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 CPT-J1100 Decadron 4mg (Dexamethasone) 15:51:24 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 CPT-J1030 Depo Medrol 40 mg (Methyl Prednisolone Acetate) 15:51: 24 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 CPT-26249 Abx/Therapy Injection 15:51:24 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 CPT-J1100 Decadron 4mg (Dexamethasone) 15:26:33 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 CPT-J1030 Depo Medrol 40 mg (Methyl Prednisolone Acetate) 15:26: 33 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 CPT-01991 Sono retroperitoneal complete kidneys and bladder 17:15: 30 CDT CPT-25686 Abd compl w upright 16:09:25 CDT CPT-J1100 Decadron 8mg (Dexamethasone) 17:07:57 CDT CPT-44093 Abx/Therapy Injection 17:07:57 CDT CPT-J1100 Decadron 8mg (Dexamethasone) 16:55:24 CDT CPT-64851 Chest 2V Frontal and Lat 16:32:44 CDT
--- OUTSIDE RECORDS SUMMARY | 2016-11-04 18:10 | XMS REPORT | Clinical Summary ---
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 V72.31 Active Suzan Boo [...] MD Health screening ICD-V70.0 Inactive Suzan Boo METAL SASH SETTER Sinus tachycardia ICD-427.89 Inactive Suzan Boo METAL SASH SETTER Smoker/tobacco use disorder-smoking cessation discussed ICD-305.1 Inactive [...] SOLN 30mL oral daily for IBS-C LACTULOSE 97461873601 Active Suzan Boo APRN Active TESSALON PERLES 100 MG CAPS 1 three times a day as needed for cough BENZONATATE 60075190382 No Longer Active Suzan Boo APRN Active BACTRIM DS 800-160 MG TABS 1 twice a day SULFAMETHOXAZOLE-TRIMETHOPRIM 52683147646 No Longer Active Suzan Boo APRN Active DIFLUCAN 150 MG TABS 1 by mouth for yeast FLUCONAZOLE 41429207516 No Longer Active Suzan Boo APRN Active EQ NICOTINE 21 MG/24HR TRANS PT24 Apply daily to stop smoking NICOTINE 86752858639 No Longer Active Suzan Boo APRN Active PREDNISONE 10 MG TABS 2 daily for 5 days then 1 daily for 5 days PREDNISONE 70403265125 No Longer Active Suzan Boo APRN Active LEVAQUIN 500 MG TABS 1 daily for infection LEVOFLOXACIN 17255216103 No Longer Active Suzan Boo APRN Active TROPICAMIDE 0.5 % OPHTH SOLN 1 drop PRN eye spasms TROPICAMIDE 41784541660 No Longer Active Suzan Boo APRN Active PREDNISONE 20 MG TAB 1 tablet daily x 4 days PREDNISONE 84360591339 No Longer Active Suzan Boo APRN Active ACETAMINOPHEN-CODEINE 120-12 MG/5ML SOLN 5 ml by mouth every 4-6 hours if needed for cough ACETAMINOPHEN-CODEINE 69252992339 No Longer Active Suzan Boo APRN Active KEFLEX 500 MG CAP 1 po qid CEPHALEXIN 09744756563 No Longer Active Suzan Boo APRN Active FLOVENT HFA 110 MCG/ACT AERO 2 puffs inhaled b.i.d. FLUTICASONE PROPIONATE HFA 10216618453 Active Renzo Thornton DO Active RISPERDAL 4 MG ORAL TABS 1 tab at bedtime RISPERIDONE 86087031859 Active Samantha Rothman RMA Active ZOFRAN 4 MG TABS 1 po q6hr PRN Nausea ONDANSETRON HCL No Longer Active Suzan Boo APRN Active FLUTICASONE PROPIONATE 50 MCG/ACT SUSP 2 sprays each nostril daily before bed. FLUTICASONE PROPIONATE 73076366870 No Longer Active Suzan Boo APRN Active ASPIRIN 325 MG ORAL TABS 1 tab q.d ASPIRIN 87299612993 No Longer Active Suzan Boo APRN Active HALOPERIDOL 10 MG ORAL TABS 1 tab q.d HALOPERIDOL 60779109508 No Longer Active Suzan Boo APRN Active GUAIFENESIN-CODEINE 100-10 MG/5ML SYRP 5ml every 4 to 6 hours as needed for cough GUAIFENESIN-CODEINE 50653310604 No Longer Active Suzan Boo APRN Active ZITHROMAX Z-EARNEST 250 MG TABS 2 today and then 1 daily for 4 days AZITHROMYCIN 55709562540 No Longer Active Suzan Boo APRN Active CLONAZEPAM 1 MG ORAL TABS 1 twice a day and an additional 1 tablet every other day as needed for pseudoseizures or anxiety CLONAZEPAM 81252542550 Active Ahmet Carbajal MD Active HYDROCODONE-ACETAMINOPHEN 5-325 MG ORAL TABS 1 tab two times a day HYDROCODONE-ACETAMINOPHEN 58324802131 No Longer Active Ahmet Carbajal MD Active LAMICTAL 100 MG ORAL TABS 1 tab 2 times qd. LAMOTRIGINE 78666786319 Active Ahmet Carbajal MD Active PREDNISONE 20 MG TABS 2 daily for 5 days then 1 daily for 5 days PREDNISONE 42385297402 No Longer Active Ahmet Carbajal MD Active FLUTICASONE PROPIONATE 50 MCG/ACT SUSP 1 to 2 sprays each nostril daily for allergies FLUTICASONE PROPIONATE 12997038037 Active Tila Valenzuela Active BENADRYL 25 MG CAP 4 po at bedtime for insomnia DIPHENHYDRAMINE HCL 02966734452 No Longer Active Ahmet Carbajal MD Active ADVAIR DISKUS 250-50 MCG/DOSE INH AEPB 1 puff twice a day for asthma FLUTICASONE-SALMETEROL 91191098390 No Longer Active Ahmet Carbajal MD Active KLONOPIN 1 MG ORAL TABS 1 tab po TID CLONAZEPAM 52863177442 No Longer Active Ahmet Carbajal MD Active ABILIFY MAINTENA 400 MG IM SUSR 400mg injection every 26 days ARIPIPRAZOLE 89554093931 No Longer Active Ahmet Carbajal MD Active TRAMADOL HCL 50 MG TABS 1/2-1 tab TID PRN TRAMADOL HCL 94654447768 No Longer Active Ahmet Carbajal MD Active BACTRIM DS 800-160 MG TABS 1 twice a day SULFAMETHOXAZOLE- TRIMETHOPRIM 02968200763 No Longer Active Ahmet Carbajal MD Active PROAIR HFA 108 (90 BASE) MCG/ACT AERS 2 puffs four times a day as needed 2015 ALBUTEROL SULFATE 54978609584 Active Ahmet Carbajal MD Active MONISTAT 7 COMBO PACK WOODROW 100 & 2 MG-% (9GM) VAG KIT 1 applicatorful per vagina q pm x 7 MICONAZOLE NITRATE 57243811059 No Longer Active Ahmet Carbajal MD Active FLAGYL 500 MG TAB 1 tablet by mouth bid METRONIDAZOLE 95642280601 No Longer Active Ahmet Carbajal MD Active OXYCODONE HCL ER 10 MG ORAL T12A 1/2 tab by mouth every 4 hours prn OXYCODONE HCL 58147875407 No Longer Active Ahmet Carbajal MD Active METHYLPREDNISOLONE 4 MG ORAL TABS po daily METHYLPREDNISOLONE 58390796702 No Longer Active Ahmet Carbajal MD Active LEVOFLOXACIN 500 MG ORAL TABS po daily LEVOFLOXACIN 69086700196 No Longer Active Ahmet Carbajal MD Active VIIBRYD 10 MG ORAL TABS Take 1 tablet once a day VILAZODONE HCL 18104077087 No Longer Active Ahmet Carbajal MD Active TOPAMAX 50 MG ORAL TABS 1 tab twice daily TOPIRAMATE 44143695823 No Longer Active Ahmet Carbajal MD Active DICLOFENAC SODIUM 50 MG TBEC 1 tablet by mouth four times daily PRN Pain 2015 DICLOFENAC SODIUM 53130086581 No Longer Active Ahmet Carbajal MD Active ADZENYS XR-ODT 6.3 MG ORAL TBED 1 tab po daily for ADHD AMPHETAMINE 27705470613 No Longer Active Ahmet Carbajal MD Active CHANTIX 1 MG TABS 1 twice a day to help quit smoking VARENICLINE TARTRATE 35040830289 No Longer Active Dipika Burgos MD Active CHANTIX STARTING MONTH EARNEST 0.5 MG X 11 & 1 MG X 42 TABS take as directed 2015 VARENICLINE TARTRATE 90954653965 No Longer Active Dipika Burgos MD Active TESSALON PERLES 100 MG CAP 1 to 2 tablets by mouth 3 times daily as needed for cough BENZONATATE 26052378427 No Longer Active Luigi Martínez APRN Active IMITREX 50 MG ORAL TABS 0.5 po x 1 PRN Headache. May repeat dose x 1 in 2 hours if needed SUMATRIPTAN SUCCINATE 03303715325 Active Ahmet Carbajal MD Active HYDROCODONE-ACETAMINOPHEN 5-325 MG TABS 1 to 2 four times a day as needed for pain use until can be seen by specialist HYDROCODONE- ACETAMINOPHEN 39720727328 No Longer Active Vishal Hui MD Active PROAIR HFA 108 (90 BASE) MCG/ACT AERS 2 puffs four times a day as needed 2015 ALBUTEROL SULFATE 09118824795 No Longer Active Vishal Hui MD Active PREDNISONE 20 MG TABS 2 daily for 5 days then 1 daily for 5 days PREDNISONE 90385132036 No Longer Active Vishal Hui MD Active ZITHROMAX Z-EARNEST 250 MG TABS 2 today and then 1 daily for 4 days AZITHROMYCIN 24163452642 No Longer Active Vishal Hui MD Active DICLOFENAC POTASSIUM TABS Take 1 tablet twice a day (pt. is not sure of the dose.) DICLOFENAC POTASSIUM TABS 92541563348 No Longer Active Vishal Hui MD Active VERAPAMIL HCL ER 120 MG ORAL CR-TABS Take 1 tablet by mouth twice a day. VERAPAMIL HCL 98089017989 Active Vishal Hui MD Active FLAGYL 500 MG TAB 1 tablet by mouth bid METRONIDAZOLE 80333519065 No Longer Active Vishal Hui MD Active VALIUM 5 MG TAB Take 1-2 tablets daily DIAZEPAM 39902066097 No Longer Active Fabiola Johnson APRN Active METOPROLOL TARTRATE 25 MG ORAL TABS 1/2 tablet twice daily for heart rate and blood pressure METOPROLOL TARTRATE 72747193662 No Longer Active Fabiola Johnson APRN Active MIRALAX ORAL POWD 17GMS DAILY IN WATER POLYETHYLENE GLYCOL 3350 64913269710 Active TAMARA Casey Active MIRALAX PACK 1 po qd PRN Constipation POLYETHYLENE GLYCOL 3350 01629952977 No Longer Active Ahmet Carbajal MD Active MINIPRESS 2 MG CAPS 4 cap po at night PRAZOSIN HCL 78095708553 No Longer Active Ahmet Carbajal MD Active PIROXICAM 20 MG CAPS 1 cap po qd PRN Pain PIROXICAM 69268729988 No Longer Active Ahmet Carbajal MD Active TRAMADOL HCL 50 MG TABS 1-2 po TID PRN Pain TRAMADOL HCL 87839345355 No Longer Active Ahmet Carbajal MD Active METOPROLOL TARTRATE 50 MG TAB 1 po bid METOPROLOL TARTRATE 01027934597 No Longer Active Ahmet Carbajal MD Active ABILIFY 15 MG ORAL TABS 1 tab daily ARIPIPRAZOLE 23697536768 No Longer Active Ahmet Carbajal MD Active PROZAC 20 MG ORAL CAPS 1 tab daily FLUOXETINE HCL 88376600035 No Longer Active Ahmet Carbajal MD Active AMBIEN 5 MG ORAL TABS 1 tab at bedtime ZOLPIDEM TARTRATE 41583939086 No Longer Active Ahmet Carbajal MD Active PREDNISONE 20 MG TAB 2 tabs daily for 4 days, 1 tab daily for 4 days, 1/2 tab daily for 4 days PREDNISONE 20319556928 No Longer Active Ahmet Carbajal MD Active KEFLEX 500 MG CAP 1 po TID x 10 days CEPHALEXIN 44069338742 No Longer Active Vishal Hui MD Active SAPHRIS 5 MG SUBL 1 po bid ASENAPINE MALEATE 10520069534 No Longer Active Jillina Mauricio METAL SASH SETTER Active LATUDA 80 MG TABS Take one by mouth daily LURASIDONE HCL 17838925653 No Longer Active Jillina Fralebron METAL SASH SETTER Active AMLODIPINE BESYLATE 5 MG TABS 1 tablet by mouth daily AMLODIPINE BESYLATE 09416594544 No Longer Active Jillina Mauricio NORIEGA Active AMITRIPTYLINE HCL 100 MG TAB one at hs AMITRIPTYLINE HCL 87417126689 No Longer Active Vishal Hui MD Active TRAZODONE HCL 100 MG TAB take 1 at bedtime TRAZODONE HCL 80662298121 No Longer Active Vishal Hui MD Active VYVANSE 40 MG CAPS 1 daily, LISDEXAMFETAMINE DIMESYLATE 35428962637 No Longer Active Vishal Hui MD Active IBUPROFEN 600 MG TAB 1 po TID PRN IBUPROFEN 68268413965 No Longer Active Vishal Hui MD Active PROZAC 20 MG CAP Take one by mouth daily FLUOXETINE HCL 11394477724 No Longer Active Vishal Hui MD Active BACTRIM DS 800-160 MG TABS 1 pill by mouth twice daily SULFAMETHOXAZOLE-TRIMETHOPRIM 76591752671 No Longer Active Sahara Rodriguez MD PhD Active DIFLUCAN 150 MG TAB 1 tablet by mouth daily FLUCONAZOLE 37715028589 No Longer Active Vishal Hui MD Active TIZANIDINE HCL 4 MG TABS 1 po q6hr PRN Muscle Spasm/Back Pain TIZANIDINE HCL 97547527086 Active Vishal uHi MD Active CLINDAMYCIN HCL 150 MG CAPS 1 four times a day CLINDAMYCIN HCL 75437565397 No Longer Active Neeraj Collins MD Active KEFLEX 500 MG ORAL CAPS 1 cap QID by mouth CEPHALEXIN 79383471399 No Longer Active Neeraj Collins MD Active DIFLUCAN 150 MG TABS 1 pill every other day x 2 doses FLUCONAZOLE 60601571692 No Longer Active Sahara Rodriguez MD PhD Active MELATONIN 3 MG CAPS 2 po q hs MELATONIN 12584803694 No Longer Active Sahara Rodriguez MD PhD Active MULTIVITAMINS CAPS Take one by mouth daily MULTIPLE VITAMIN 34391033437 No Longer Active Sahara Rodriguez MD PhD Active BACTRIM DS 800-160 MG TAB 1 tab by mouth twice daily TRIMETHOPRIM-SULFAMETHOXAZOLE 98713877836 No Longer Active Sahara Rodriguez MD PhD Active [facility] PROBIOTIC ORAL CHEW 2 daily po PROBIOTIC PRODUCT 55890990520 No Longer Active Sahara Rodriguez MD PhD Active BACTRIM DS 800-160 MG TABS 1 po BID x 7 days SULFAMETHOXAZOLE-TRIMETHOPRIM 80313170589 No Longer Active Vishal Hui MD Active CHANTIX STARTING MONTH EARNEST 0.5 MG X 11 & 1 MG X 42 TABS 0.5mg daily for 3 days , then 0.5mg BID for 4 days, then 1mg BID VARENICLINE TARTRATE 12361567208 No Longer Active TAMARA Gray Active VERAPAMIL HCL CR 120 MG TAB CR 1 po bid VERAPAMIL HCL 17071577442 No Longer Active Vihsal Hui MD Active METOPROLOL SUCCINATE 50 MG TB24 1 tablet by mouth daily METOPROLOL SUCCINATE 99047343494 No Longer Active Vishal Hui MD Active SAPHRIS 10 MG SUBL 1 tab po bid ASENAPINE MALEATE 40770562242 No Longer Active Vishal Hui MD Active LISINOPRIL 20 MG TABS 1 tab po qd LISINOPRIL 39932318970 No Longer Active Vishal Hiu MD Active LATUDA 20 MG TABS Take one by mouth daily LURASIDONE HCL 24398193194 No Longer Active Vishal Hui MD Active TRAZODONE HCL 50 MG TABS 1/2 tab po qd prn for anxiety TRAZODONE HCL 45474936792 No Longer Active Vishal Hui MD Active OMEPRAZOLE 20 MG TBEC 1 po q a.m. 30min prior to first food intake OMEPRAZOLE 23235247162 Active TAMARA Casey Active RANITIDINE HCL 150 MG CAPS 1 twice a day RANITIDINE HCL 98461132965 Active Jilljanee Martínez APRN Active LINZESS 290 MCG CAPS Take one by mouth daily LINACLOTIDE 83567072173 No Longer Active Vishal Hui MD Active SAPHRIS 5 MG SUBL 1 tab po qd ASENAPINE MALEATE 09159246568 No Longer Active Vishal Hui MD Active ZALEPLON 10 MG CAPS 1 cap po every other night ZALEPLON 42841431690 No Longer Active Vishal Hui MD Active LYRICA 50 MG CAPS 1 tab po TID PREGABALIN 03875781918 No Longer Active Vishal Hui MD Active LORATADINE 10 MG TABS 1 tab po qd LORATADINE 70746147113 No Longer Active Vishal Hui MD Active VERAPAMIL HCL ER 180 MG CR-TABS 1 tab po bid VERAPAMIL HCL 17290417618 No Longer Active Vishal Hui MD Active MIRALAX POWD 1 capfull once daily POLYETHYLENE GLYCOL 3350 97613708164 No Longer Active Vishal Hui MD Active PREDNISONE 20 MG TABS 1 tab po qd PREDNISONE 09113399046 No Longer Active Renzo Thornton DO Active LEVOFLOXACIN 500 MG TABS 1 tab po qd LEVOFLOXACIN 70578714191 No Longer Active Renzo Thornton DO Active BUSPIRONE HCL 15 MG TABS 1 tab po TID BUSPIRONE HCL 25558005786 No Longer Active Renzo Thornton DO Active BENZTROPINE MESYLATE 1 MG TABS 1 tab po qd BENZTROPINE MESYLATE 51604938039 No Longer Active Renzo Thornton DO Active ATENOLOL 25 MG TABS 1 tab po qd ATENOLOL 08202806164 No Longer Active Renzo Thornton DO Active ESCITALOPRAM OXALATE 20 MG TABS 1 tab po qd ESCITALOPRAM OXALATE 12361030831 No Longer Active Renzo Thornton DO Active ADVAIR DISKUS 250-50 MCG/DOSE AEPB 1 puff BID FLUTICASONE-SALMETEROL 95513069151 No Longer Active Renzo Thornton DO Active PREDNISONE 20 MG TAB 2 tabs daily for 3 days, 1 tab daily for 3 days, 1/2 tab daily for 2 days PREDNISONE 11288060437 No Longer Active Vishal Hui MD Active CEFDINIR 300 MG CAPS by mouth twice a day CEFDINIR 64189778497 No Longer Active Vishal Hui MD Active LANSOPRAZOLE 30 MG CPDR 1 cap po qd LANSOPRAZOLE 33026167271 No Longer Active Vishal Hui MD Active BACLOFEN 20 MG TABS 1 tab po tid BACLOFEN 32409706605 No Longer Active Vishal Hui MD Active ADVAIR DISKUS 250-50 MCG/DOSE AEPB 1 puff BID ADVAIR DISKUS 250-50 MCG/DOSE AEPB FLUTICASONE-SALMETEROL Inactive ESCITALOPRAM OXALATE 20 MG TABS 1 tab po qd ESCITALOPRAM OXALATE 20 MG TABS 427638 ESCITALOPRAM OXALATE Inactive ATENOLOL 25 MG TABS 1 tab po qd ATENOLOL 25 MG TABS 747371 ATENOLOL Inactive BENZTROPINE MESYLATE 1 MG TABS 1 tab po qd BENZTROPINE MESYLATE 1 MG TABS 704011 BENZTROPINE MESYLATE Inactive BUSPIRONE HCL 15 MG TABS 1 tab po TID BUSPIRONE HCL 15 MG TABS 897563 BUSPIRONE HCL Inactive LEVOFLOXACIN 500 MG TABS 1 tab po qd LEVOFLOXACIN 500 MG TABS 606397 LEVOFLOXACIN Inactive PREDNISONE 20 MG TABS 1 tab po qd PREDNISONE 20 MG TABS 757322 PREDNISONE Inactive MIRALAX POWD 1 capfull once daily MIRALAX POWD 784604 POLYETHYLENE GLYCOL 3350 Inactive VERAPAMIL HCL ER 180 MG CR-TABS 1 tab po bid VERAPAMIL HCL ER 180 MG CR-TABS VERAPAMIL HCL Inactive LORATADINE 10 MG TABS 1 tab po qd LORATADINE 10 MG TABS 845925 LORATADINE Inactive LYRICA 50 MG CAPS 1 tab po TID LYRICA 50 MG CAPS PREGABALIN Inactive ZALEPLON 10 MG CAPS 1 cap po every other night ZALEPLON 10 MG CAPS 965187 ZALEPLON Inactive SAPHRIS 5 MG SUBL 1 tab po qd SAPHRIS 5 MG SUBL ASENAPINE MALEATE Inactive TRAZODONE HCL 50 MG TABS 1/2 tab po qd prn for anxiety TRAZODONE HCL 50 MG TABS 367133 TRAZODONE HCL Inactive LATUDA 20 MG TABS Take one by mouth daily LATUDA 20 MG TABS LURASIDONE HCL Inactive LISINOPRIL 20 MG TABS 1 tab po qd LISINOPRIL 20 MG TABS 254272 LISINOPRIL Inactive SAPHRIS 10 MG SUBL 1 [...] twice daily BACTRIM DS 800-160 MG TAB 452538 TRIMETHOPRIM-SULFAMETHOXAZOLE Inactive MULTIVITAMINS CAPS Take one by mouth daily MULTIVITAMINS CAPS MULTIPLE VITAMIN Inactive MELATONIN 3 MG CAPS 2 po q hs MELATONIN 3 MG CAPS 253188 MELATONIN Inactive KEFLEX 500 MG ORAL CAPS 1 cap QID by mouth KEFLEX 500 MG ORAL CAPS 238199 CEPHALEXIN Inactive CLINDAMYCIN HCL 150 MG CAPS 1 four times a day CLINDAMYCIN HCL 150 MG CAPS 373891 CLINDAMYCIN HCL Inactive DIFLUCAN 150 MG TAB 1 tablet by mouth daily DIFLUCAN 150 MG TAB 090245 FLUCONAZOLE Inactive PROZAC 20 MG CAP Take one by mouth daily PROZAC 20 MG CAP 660837 FLUOXETINE HCL Inactive IBUPROFEN 600 MG TAB 1 po TID PRN IBUPROFEN 600 MG TAB 485667 IBUPROFEN Inactive VYVANSE 40 MG CAPS 1 daily, VYVANSE 40 MG CAPS LISDEXAMFETAMINE DIMESYLATE Inactive TRAZODONE HCL 100 MG TAB take 1 at bedtime TRAZODONE HCL 100 MG TAB 878047 TRAZODONE HCL Inactive AMITRIPTYLINE HCL 100 MG TAB one at hs AMITRIPTYLINE HCL 100 MG TAB 116664 AMITRIPTYLINE HCL Inactive AMLODIPINE BESYLATE 5 MG TABS 1 tablet by mouth daily AMLODIPINE BESYLATE 5 MG TABS 970456 AMLODIPINE BESYLATE Inactive LATUDA 80 MG TABS Take one by mouth daily LATUDA 80 MG TABS LURASIDONE HCL Inactive SAPHRIS 5 MG SUBL 1 po bid SAPHRIS 5 MG SUBL ASENAPINE MALEATE Inactive PREDNISONE 20 MG TAB 2 tabs daily for 4 days, 1 tab daily for 4 days, 1/2 tab daily for 4 days PREDNISONE 20 MG TAB 368122 PREDNISONE Inactive AMBIEN 5 MG ORAL TABS 1 tab at bedtime AMBIEN 5 MG ORAL TABS 766176 ZOLPIDEM TARTRATE Inactive PROZAC 20 MG ORAL CAPS 1 tab daily PROZAC 20 MG ORAL CAPS 612524 FLUOXETINE HCL Inactive ABILIFY 15 MG ORAL TABS 1 tab daily ABILIFY 15 MG ORAL TABS 187612 ARIPIPRAZOLE Inactive METOPROLOL TARTRATE 50 MG TAB 1 po bid METOPROLOL TARTRATE 50 MG TAB 748841 METOPROLOL TARTRATE Inactive TRAMADOL HCL 50 MG TABS 1-2 po TID PRN Pain TRAMADOL HCL 50 MG TABS 635750 TRAMADOL HCL Inactive PIROXICAM 20 MG CAPS 1 cap po qd PRN Pain PIROXICAM 20 MG CAPS 257344 PIROXICAM Inactive MINIPRESS 2 MG CAPS 4 cap po at night MINIPRESS 2 MG CAPS 640318 PRAZOSIN HCL Inactive MIRALAX PACK 1 po qd PRN Constipation MIRALAX PACK 773646 POLYETHYLENE GLYCOL 3350 Inactive METOPROLOL TARTRATE 25 MG ORAL TABS 1/2 tablet twice daily for heart rate and blood pressure METOPROLOL TARTRATE 25 MG ORAL TABS 870314 METOPROLOL TARTRATE Inactive VALIUM 5 MG TAB Take 1-2 tablets daily VALIUM 5 MG TAB 641593 DIAZEPAM Inactive FLAGYL 500 MG TAB 1 tablet by mouth bid FLAGYL 500 MG TAB 992217 METRONIDAZOLE Inactive DICLOFENAC POTASSIUM TABS Take 1 tablet twice a day (pt. is not sure of the dose.) DICLOFENAC POTASSIUM TABS DICLOFENAC POTASSIUM TABS Inactive ZITHROMAX Z-EARNEST 250 MG TABS 2 today and then 1 daily for 4 days ZITHROMAX Z-EARNEST 250 MG TABS 8519405 AZITHROMYCIN Inactive PREDNISONE 20 MG TABS 2 daily for 5 days then 1 daily for 5 days PREDNISONE 20 MG TABS 147761 PREDNISONE Inactive PROAIR HFA 108 (90 BASE) MCG/ACT AERS 2 puffs four times a day as needed 2015 PROAIR HFA 108 (90 BASE) MCG/ACT AERS ALBUTEROL SULFATE Inactive HYDROCODONE-ACETAMINOPHEN 5-325 MG TABS 1 to 2 four times a day as needed for pain use until can be seen by specialist HYDROCODONE- ACETAMINOPHEN 5-325 MG TABS 621284 HYDROCODONE-ACETAMINOPHEN Inactive TESSALON PERLES 100 MG CAP 1 to 2 tablets by mouth 3 times daily as needed for cough TESSALON PERLES 100 MG CAP 811796 BENZONATATE Inactive CHANTIX STARTING MONTH EARNEST 0.5 [...] Pain 2015 DICLOFENAC SODIUM 50 MG TBEC 652671 DICLOFENAC SODIUM Inactive TOPAMAX 50 MG ORAL TABS 1 tab twice daily TOPAMAX 50 MG ORAL TABS 251060 TOPIRAMATE Inactive VIIBRYD 10 MG ORAL TABS Take 1 tablet once a day VIIBRYD 10 MG ORAL TABS VILAZODONE HCL Inactive LEVOFLOXACIN 500 MG ORAL TABS po daily LEVOFLOXACIN 500 MG ORAL TABS 203742 LEVOFLOXACIN Inactive METHYLPREDNISOLONE 4 MG ORAL TABS po daily METHYLPREDNISOLONE 4 MG ORAL TABS 602029 METHYLPREDNISOLONE Inactive OXYCODONE HCL ER 10 MG ORAL T12A 1/2 tab by mouth every 4 hours prn OXYCODONE HCL ER 10 MG ORAL T12A OXYCODONE HCL Inactive FLAGYL 500 MG TAB 1 tablet by mouth bid FLAGYL 500 MG TAB 563722 METRONIDAZOLE Inactive MONISTAT 7 COMBO PACK WOODROW 100 & 2 MG-% (9GM) VAG KIT 1 applicatorful per vagina q pm x 7 MONISTAT 7 COMBO PACK WOODROW 100 & 2 MG-% (9GM) VAG KIT MICONAZOLE NITRATE Inactive BACTRIM DS 800-160 MG TABS 1 twice a day BACTRIM DS 800-160 MG TABS 919996 SULFAMETHOXAZOLE-TRIMETHOPRIM Inactive TRAMADOL HCL 50 MG TABS 1/2-1 tab TID PRN TRAMADOL HCL 50 MG TABS 489395 TRAMADOL HCL Inactive ABILIFY MAINTENA 400 MG IM SUSR 400mg injection every 26 days ABILIFY MAINTENA 400 MG IM SUSR ARIPIPRAZOLE Inactive KLONOPIN 1 MG ORAL TABS 1 tab po TID KLONOPIN 1 MG ORAL TABS 305848 CLONAZEPAM Inactive ADVAIR DISKUS 250-50 MCG/DOSE INH AEPB 1 puff twice a day for asthma ADVAIR DISKUS 250-50 MCG/DOSE INH AEPB FLUTICASONE- SALMETEROL Inactive BENADRYL 25 MG CAP 4 po at bedtime for insomnia BENADRYL 25 MG CAP DIPHENHYDRAMINE HCL Inactive PREDNISONE 20 MG TABS 2 daily for 5 days then 1 daily for 5 days PREDNISONE 20 MG TABS 512782 PREDNISONE Inactive HYDROCODONE-ACETAMINOPHEN 5-325 MG ORAL TABS 1 tab two times a day HYDROCODONE-ACETAMINOPHEN 5-325 MG ORAL TABS 582065 HYDROCODONE-ACETAMINOPHEN Inactive ZITHROMAX Z-EARNEST 250 MG TABS 2 today and then 1 daily for 4 days ZITHROMAX Z-EARNEST 250 MG TABS 8937943 AZITHROMYCIN Inactive GUAIFENESIN-CODEINE 100-10 MG/5ML SYRP 5ml every 4 to 6 hours as needed for cough GUAIFENESIN-CODEINE 100-10 MG/5ML SYRP 351770 GUAIFENESIN-CODEINE Inactive HALOPERIDOL 10 MG ORAL TABS 1 tab q.d HALOPERIDOL 10 MG ORAL TABS 388309 HALOPERIDOL Inactive ASPIRIN 325 MG ORAL TABS 1 tab q.d ASPIRIN 325 MG ORAL TABS 466811 ASPIRIN Inactive FLUTICASONE PROPIONATE 50 MCG/ACT SUSP 2 sprays each nostril daily before bed. FLUTICASONE PROPIONATE 50 MCG/ACT SUSP 2728020 FLUTICASONE PROPIONATE Inactive ZOFRAN 4 MG TABS 1 po q6hr PRN Nausea ZOFRAN 4 MG TABS 928945 ONDANSETRON HCL Inactive KEFLEX 500 MG CAP 1 po qid KEFLEX 500 MG CAP 716505 CEPHALEXIN Inactive ACETAMINOPHEN-CODEINE 120-12 MG/5ML SOLN 5 ml by mouth every 4-6 hours if needed for cough ACETAMINOPHEN-CODEINE 120-12 MG/5ML SOLN 462063 ACETAMINOPHEN-CODEINE Inactive PREDNISONE 20 MG TAB 1 tablet daily x 4 days PREDNISONE 20 MG TAB 439182 PREDNISONE Inactive TROPICAMIDE 0.5 % OPHTH SOLN 1 drop PRN eye spasms TROPICAMIDE 0.5 % OPHTH SOLN 419430 TROPICAMIDE Inactive LEVAQUIN 500 MG TABS 1 daily for infection LEVAQUIN 500 MG TABS 437235 LEVOFLOXACIN Inactive PREDNISONE 10 MG TABS 2 daily for 5 days then 1 daily for 5 days PREDNISONE 10 MG TABS 730485 PREDNISONE Inactive EQ NICOTINE 21 MG/24HR TRANS [...] for cough TESSALON PERLES 100 MG CAPS 995105 BENZONATATE Inactive CEFDINIR 300 MG CAPS by mouth twice a day CEFDINIR 300 MG CAPS 559747 CEFDINIR Inactive PREDNISONE 20 MG TAB 2 tabs daily for 3 days, 1 tab daily for 3 days, 1/2 tab daily for 2 days PREDNISONE 20 MG TAB 722270 PREDNISONE Inactive BACTRIM DS 800-160 MG TABS [...] x 10 days KEFLEX 500 MG CAP 842021 CEPHALEXIN Inactive Advance Directives Directive Description Start [...] % 11.0-15.0 platelet count 443 THOUSAND/UL 10*3/mm3 350-183 7268/03/01 mean platelet volume 8.2 fL 7.5-12.5 leukocyte [...] % 11.0-15.0 platelet count 349 THOUSAND/UL 10*3/mm3 764-769 4784/04/12 mean platelet volume 8.4 fL 7.5-12.5 Lab [...] 369 10^3/MM^3 10*3/mm3 142-424 Lab Report: Chlamydia/GC APTIMA/[id number] - Lab chlamydia DNA probe NOT DETECTED NOT DETECTED Lab Report: Chlamydia/GC APTIMA/[id number] - Microbiology Neisseria gonorrhoeae DNA probe NOT DETECTED NOT DETECTED Lab Report: Chlamydia/GC APTIMA/[id number], Urinalysis, Complete, with Reflex ... - Lab chlamydia DNA probe NOT DETECTED NOT DETECTED Lab Report: Chlamydia/GC APTIMA/[id number], Urinalysis, Complete, with Reflex ... - Microbiology Neisseria gonorrhoeae DNA probe NOT DETECTED NOT DETECTED Lab Report: Chlamydia/GC APTIMA/[id number], Urinalysis, Complete, with Reflex ... - Urinalysis microalbumin/total urine volume 2 mg/L Units converted. See lab report for original value. microalbumin/creatinine ratio, urine 9 MCG/MG CREAT mg/L <30 Lab Report: Comp. Metabolic Panel - Chemistry sodium, serum 142 mmol/L [phone]/06/08 carbon dioxide, venous blood 27.6 mmol/L 21.0-32.0 potassium, serum 4.0 mmol/L 3.5-5.2 chloride, serum 105 mmol/L 98-107 blood glucose 95 mg/dL 65-110 urea nitrogen, blood 8 mg/dL 7-18 creatinine, serum 0.75 mg/dL 0.55-1.30 alanine aminotransferase (SGPT), serum 49 U/L 12-78 aspartate aminotransferase (SGOT), serum 28 U/L 15-37 calcium, serum 9.4 mg/dL 8.5-10.1 bilirubin, serum, total 0.30 mg/dL 0.00-1.00 sodium, serum 140 mmol/L [phone]/08/08 carbon dioxide, venous blood 33.7 mmol/L 21.0-32.0 [...] mg/dL Encounters Code Encounter Date Provider Facility CPT-94276 Level 3 Est. Patient 10:00:25 CDT Suzan Boo [facility] CPT-56918 Level 3 Est. Patient 10:29:[address] [facility] CPT-45191 Level 3 Est. Patient 11:04:38 CDT Renzo Thornton [facility] CPT-82035 Level 3 Est. Patient 11:15:58 ARCHERY EQUIPMENT REPAIRER Renzo Thornton [facility] CPT-65550 Level 3 Est. Patient 15:28:23 ARCHERY EQUIPMENT REPAIRER Suzan Boo [facility] CPT-13041 Level 4 Est. Patient 10:20:54 ARCHERY EQUIPMENT REPAIRER Suzan Boo [facility] CPT-69702 Level 3 Est. Patient 11:47:37 ARCHERY EQUIPMENT REPAIRER Ahmet Carbajal MD [facility] CPT-13086 Level 3 Est. Patient 10:40:11 ARCHERY EQUIPMENT REPAIRER Ahmet Carbajal MD [facility] CPT-89774 Level 3 Est. Patient 15:07:06 ARCHERY EQUIPMENT REPAIRER Neeraj Collins MD [facility] CPT-71727 Level 4 Est. Patient 14:45:00 ARCHERY EQUIPMENT REPAIRER Ahmet Carbajal MD [facility] CPT-94167 Level 3 Est. Patient 13:59:[address] [facility] CPT-90312 Level 3 Est. Patient 18:18:53 CDT Neeraj Collins MD [facility] CPT-66378 Level 3 Est. Patient 15:50:44 CDT Vishal Hui MD [facility] CPT-51122 Level 3 Est. Patient 11:36:17 CDT Ahmet Carbajal MD [facility] CPT-28628 Level 3 Est. Patient 13:29:16 CDT Vishal Hui MD [facility] CPT-14562 Level 3 Est. Patient 14:27:52 CDT Neeraj Collins MD [facility] CPT-79387 Level 3 Est. Patient 08:56:[address] [facility] CPT-29162 Level 4 Est. Patient 12:11:[address] [facility] CPT-30509 Level 3 New Patient 16:53:37 CDT Albert Caldera MD [facility] CPT-34916 Level 3 Est. Patient 11:25:49 CDT Renzo Thornton DO [facility] CPT-50339 Level 3 Est. Patient 15:22:01 CDT Ahmet Carbajal MD [facility] CPT-97901 Level 4 Est. Patient 09:00:51 ARCHERY EQUIPMENT REPAIRER Vishal Hui MD [facility] CPT-02711 Level 3 Est. Patient 11:37:33 ARCHERY EQUIPMENT REPAIRER Vishal Hui MD [facility] CPT-82731 Level 3 Est. Patient 08:41:09 ARCHERY EQUIPMENT REPAIRER Vishal Hui MD [facility] CPT-10539 Level 4 Est. Patient 10:19:35 ARCHERY EQUIPMENT REPAIRER Vishal Hui MD [facility] CPT-18471 Level 3 Est. Patient 13:35:45 CDT Vishal Hui MD [facility] CPT-82160 Level 4 Est. Patient 10:08:37 CDT Vishal Hui MD [facility] CPT-03333 Level 3 Est. Patient 11:22:10 CDT Vishal Hui MD [facility] CPT-63544 Level 3 Est. Patient 11:03:32 CDT Sahara Rodriguez MD [facility]-17570 Level 3 Est. Patient 09:41:35 CDT Vishal Hui MD [facility] CPT-11892 Level 3 Est. Patient 12:00:41 CDT Neeraj Collins MD [facility]-30987 Level 3 Est. Patient 09:16:24 CDT Vishal Hui MD [facility] CPT-49903 Level 4 Est. Patient 13:59:09 CDT Neeraj Collins MD [facility] CPT-60111 Level 3 Est. Patient 15:19:43 CDT Renzo Thornton DO [facility] CPT-63552 Level 3 Est. Patient 18:10:26 CDT Sahara Rodriguez MD [facility]-08122 Level 3 Est. Patient 14:49:50 CDT Vishal Hui MD [facility] CPT-77892 Level 4 Est. Patient 18:41:46 CDT Neeraj Collins MD [facility] CPT-55882 Level 4 Est. Patient 09:18:38 ARCHERY EQUIPMENT REPAIRER Vishal Hui MD [facility] CPT-63534 Level 3 Est. Patient 14:43:55 ARCHERY EQUIPMENT REPAIRER Vishal Hui MD [facility] CPT-79040 Level 3 Est. Patient 15:26:33 ARCHERY EQUIPMENT REPAIRER Sahara Rodriguez MD PhD [facility] CPT-87141 Level 3 Est. Patient 10:32:14 ARCHERY EQUIPMENT REPAIRER Vishal Hui MD [facility] CPT-81918 Level 3 Est. Patient 15:12:52 ARCHERY EQUIPMENT REPAIRER Vishal Hui MD [facility] CPT-22018 Level 4 Est. Patient 09:19:27 CDT Vishal Hui MD [facility] CPT-41567 Level 3 Est. Patient 15:53:00 CDT Renzo Thornton [facility] CPT-68401 Level 3 Est. Patient 15:50:30 CDT Renzo Thornton [facility] CPT-64952 Level 3 Est. Patient 16:55:24 CDT Vishal Hui MD [facility] Procedures Code Procedure Name Date Entry Date Standard Description CPT-67312 Venipuncture Draw Fee 08:41:12 CDT CPT-83769 Abd compl w upright - XRAY USE ONLY 10:27:59 CDT 06/28 CPT-32197 Smoking Cessation counseling 11:15:58 ARCHERY EQUIPMENT REPAIRER CPT-G0439 [facility] Annual Wellness Exam 09:30:58 ARCHERY EQUIPMENT REPAIRER CPT-71917 TSH - LAB USE ONLY 08:50:26 ARCHERY EQUIPMENT REPAIRER CPT-65389 CBC - LAB USE ONLY 08:50:26 ARCHERY EQUIPMENT REPAIRER CPT-40206 Venipuncture Draw Fee 08:50:26 ARCHERY EQUIPMENT REPAIRER CPT-25817 Abx/Therapy Injection 17:34:30 ARCHERY EQUIPMENT REPAIRER CPT-60406 Nexplanon Removal with Reinsertion 14:09:32 CDT CPT-J7307 Nexplanon (Implant) 14:09:32 CDT CPT-OV Office Visit 14:09:32 CDT CPT-95369 UA w micro - LAB USE ONLY 16:21:13 CDT CPT-00432 Wet Mount - LAB USE ONLY 16:21:13 CDT CPT-98546 First Vx - Ix admin for Medicare patients 14:37:47 CDT CPT-76641 Fluzone Preservative Free Intramuscular Suspension 14:37 :47 CDT CPT-91787 Abx/Therapy Injection 13:54:22 CDT CPT-15766 Abx/Therapy Injection 08:47:09 CDT CPT-29785 Abx/Therapy Injection 13:29:56 CDT CPT-94247 Abx/Therapy Injection 08:36:16 CDT CPT-89705 Wet Mount - LAB USE ONLY 17:44:58 CDT CPT-96281 UA w micro - LAB USE ONLY 17:44:58 CDT CPT-34476 CMP - LAB USE ONLY 17:44:58 CDT CPT-28814 Venipuncture Draw Fee 17:44:58 CDT CPT-12611 Cervical Min 4V - XRAY USE ONLY 09:01:40 CDT CPT-53694 Chest 2V Frontal and Lat - XRAY USE ONLY 11:06:31 CDT CPT-18241 EKG Trac and Interp - XRAY USE ONLY 11:31:43 CDT 08/26 CPT-J3420 Vitamin B12 1000mcg (Cyanocobalamin) 08:10:26 ARCHERY EQUIPMENT REPAIRER 04/12 CPT-40142 Abx/Therapy Injection 08:10:26 ARCHERY EQUIPMENT REPAIRER CPT-G0438 Initial Annual Wellness Exam 19:01:01 ARCHERY EQUIPMENT REPAIRER CPT-J3420 Vitamin B12 1000mcg (Cyanocobalamin) 16:57:46 CDT 08/14 CPT-39312 Recombivax HB Injection Suspension 5 MCG/0.5ML 08:37:50 ARCHERY EQUIPMENT REPAIRER CPT-39750 Immunization Single Admin 08:37:50 ARCHERY EQUIPMENT REPAIRER CPT-J3420 Vitamin B12 1000mcg (Cyanocobalamin) 08:32:16 ARCHERY EQUIPMENT REPAIRER 03/11 CPT-39393 Abx/Therapy Injection 08:32:16 ARCHERY EQUIPMENT REPAIRER CPT-55569 Chest 2V Frontal and Lat 11:46:38 ARCHERY EQUIPMENT REPAIRER CPT-44128 Venipuncture Draw Fee 09:12:45 ARCHERY EQUIPMENT REPAIRER CPT-J3420 Vitamin B12 1000mcg (Cyanocobalamin) 08:50:15 ARCHERY EQUIPMENT REPAIRER 02/08 CPT-74549 Abx/Therapy Injection 08:50:15 ARCHERY EQUIPMENT REPAIRER CPT-Cryo Cryotherapy 10:19:35 ARCHERY EQUIPMENT REPAIRER CPT-000 Give Appropriate Flu Vaccine 09:22:16 CDT CPT-J3420 Vitamin B12 1000mcg (Cyanocobalamin) 19:08:57 CDT 01/11 CPT-26223 Abx/Therapy Injection 19:08:57 CDT CPT-J3420 Vitamin B12 1000mcg (Cyanocobalamin) 08:19:08 CDT 12/11 CPT-92294 Abx/Therapy Injection 08:19:08 CDT CPT-J3420 Vitamin B12 1000mcg (Cyanocobalamin) 14:48:00 CDT 11/09 CPT-65303 Abx/Therapy Injection 14:47:59 CDT CPT-J3420 Vitamin B12 1000mcg (Cyanocobalamin) 08:34:04 CDT 10/09 CPT-46020 Abx/Therapy Injection 08:34:04 CDT CPT-J3420 Vitamin B12 1000mcg (Cyanocobalamin) 09:18:52 CDT 09/11 CPT-66812 Abx/Therapy Injection 09:18:52 CDT CPT-J3420 Vitamin B12 1000mcg (Cyanocobalamin) 08:35:44 CDT 09/04 CPT-31550 Abx/Therapy Injection 08:35:44 CDT CPT-20403 Immunization Single Admin 11:07:16 CDT CPT-82154 Hepatitis B adult IM 11:07:16 CDT CPT-J3420 Vitamin B12 1000mcg (Cyanocobalamin) 11:00:49 CDT 08/28 CPT-J1040 Depo Medrol 80 mg (Methyl Prednisolone Acetate) 11:00: 49 CDT CPT-39380 Abx/Therapy Injection 11:00:49 CDT CPT-J1040 Depo Medrol 80 mg (Methyl Prednisolone Acetate) 09:16: 23 CDT CPT-J3420 Vitamin B12 1000mcg (Cyanocobalamin) 08:27:05 CDT 08/20 CPT-13726 Abx/Therapy Injection 08:27:05 CDT CPT-01775 Recombivax HB Injection Suspension 5 MCG/0.5ML 10:00:41 CDT CPT-82955 Administration single or combination vaccine inc oral 10 :00:41 CDT CPT-64656 Sono transvag pelvis non OB uterus ovaries cervix 16:36: 57 CDT CPT-07938 LS spine comp w obliq 09:50:55 ARCHERY EQUIPMENT REPAIRER CPT-58666 Abd compl w upright 09:50:55 ARCHERY EQUIPMENT REPAIRER CPT-J1100 Decadron 4mg (Dexamethasone) 15:51:24 ARCHERY EQUIPMENT REPAIRER CPT-J1030 Depo Medrol 40 mg (Methyl Prednisolone Acetate) 15:51: 24 ARCHERY EQUIPMENT REPAIRER CPT-07026 Abx/Therapy Injection 15:51:24 ARCHERY EQUIPMENT REPAIRER CPT-J1100 Decadron 4mg (Dexamethasone) 15:26:33 ARCHERY EQUIPMENT REPAIRER CPT-J1030 Depo Medrol 40 mg (Methyl Prednisolone Acetate) 15:26: 33 ARCHERY EQUIPMENT REPAIRER CPT-77359 Sono retroperitoneal complete kidneys and bladder 17:15: 30 CDT CPT-44373 Abd compl w upright 16:09:25 CDT CPT-J1100 Decadron 8mg (Dexamethasone) 17:07:57 CDT CPT-18860 Abx/Therapy Injection 17:07:57 CDT CPT-J1100 Decadron 8mg (Dexamethasone) 16:55:24 CDT CPT-87868 Chest 2V Frontal and Lat 16:32:44 CDT
--- OUTSIDE RECORDS SUMMARY | 2016-11-04 18:11 | XMS REPORT | Clinical Summary ---
Author Author Admin, E Organization [employer] Address Unknown Phone Unavailable Allergies, Adverse Reactions, [...] ORAL CHEW 2 daily po PROBIOTIC PRODUCT 54133895359 Active Jillina Frazell DONOR FLOOR TECHNICIAN Active IBUPROFEN 600 MG TAB 1 po TID PRN IBUPROFEN 94222176032 Active Jillina Frazell DONOR FLOOR TECHNICIAN Active BACTRIM DS 800-160 MG TAB 1 tab by mouth twice daily TRIMETHOPRIM-SULFAMETHOXAZOLE 62916621062 Active Neeraj Collins MD Active BACTRIM DS 800-160 MG TABS 1 po BID x 7 days SULFAMETHOXAZOLE-TRIMETHOPRIM 21673592267 No Longer Active Vishal Hui MD Active CHANTIX STARTING MONTH EARNEST 0.5 MG X 11 & 1 MG X 42 TABS 0.5mg daily for 3 days , then 0.5mg BID for 4 days, then 1mg BID VARENICLINE TARTRATE 33799161978 No Longer Active TAMARA Gray Active METOPROLOL TARTRATE 50 MG TAB 1 po bid METOPROLOL TARTRATE 41628272657 Active Vishal Hui MD Active TRAZODONE HCL 100 MG TAB take 1 at bedtime TRAZODONE HCL 09242712869 Active Vishal Hui MD Active AMLODIPINE BESYLATE 5 MG TABS 1 tablet by mouth daily AMLODIPINE BESYLATE 86027600000 Active Vishal Hui MD Active VERAPAMIL HCL CR 120 MG TAB CR 1 po bid VERAPAMIL HCL 95084928201 No Longer Active Vishal Hui MD Active METOPROLOL SUCCINATE 50 MG TB24 1 tablet by mouth daily METOPROLOL SUCCINATE 61044315593 No Longer Active Vishal Hui MD Active TRAMADOL HCL 50 MG TABS 1-2 po TID PRN Pain TRAMADOL HCL 23962732654 Active Vishal Hui MD Active SAPHRIS 5 MG SUBL 1 po bid ASENAPINE MALEATE 13976599623 Active Vishal Hui MD Active SAPHRIS 10 MG SUBL 1 tab po bid ASENAPINE MALEATE 03187864698 No Longer Active Vishal Hui MD Active LISINOPRIL 20 MG TABS 1 tab po qd LISINOPRIL 00211955012 No Longer Active Vishal Hui MD Active BENADRYL 25 MG CAP 2 po tid prn anxiety DIPHENHYDRAMINE HCL 21510652395 Active Vishal Hui MD Active LATUDA 80 MG TABS Take one by mouth daily LURASIDONE HCL 96882118022 Active Vishal Hui MD Active LATUDA 20 MG TABS Take one by mouth daily LURASIDONE HCL 81378197904 No Longer Active Vishal Hui MD Active TRAZODONE HCL 50 MG TABS 1/2 tab po qd prn for anxiety TRAZODONE HCL 19067012983 No Longer Active Vishal Hui MD Active PIROXICAM 20 MG CAPS 1 cap po qd PRN Pain PIROXICAM 70102534536 Active Vishal Hui MD Active OMEPRAZOLE 20 MG TBEC 1 po q a.m. 30min prior to first food intake OMEPRAZOLE 84138645768 Active Vishal Hui MD Active RANITIDINE HCL 150 MG CAPS 1 twice a day RANITIDINE HCL 87111455924 Active Vishal Hui MD Active MULTIVITAMINS CAPS Take one by mouth daily MULTIPLE VITAMIN 26362809910 Active Vishal Hui MD Active MELATONIN 3 MG CAPS 2 po q hs MELATONIN 27168886675 Active Vishal Hui MD Active PROZAC 20 MG CAP Take one by mouth daily FLUOXETINE HCL 57358947808 Active Vishal Hui MD Active LINZESS 290 MCG CAPS Take one by mouth daily LINACLOTIDE 76373736920 Active Vishal Hui MD Active SAPHRIS 5 MG SUBL 1 tab po qd ASENAPINE MALEATE 15322486894 No Longer Active Vishal Hui MD Active ZALEPLON 10 MG CAPS 1 cap po every other night ZALEPLON 29713619670 No Longer Active Vishal Hui MD Active LYRICA 50 MG CAPS 1 tab po TID PREGABALIN 32718580532 No Longer Active Vishal Hui MD Active LORATADINE 10 MG TABS 1 tab po qd LORATADINE 51974026075 No Longer Active Vishal Hui MD Active VERAPAMIL HCL ER 180 MG CR-TABS 1 tab po bid VERAPAMIL HCL 22399979180 No Longer Active Vishal Hui MD Active MIRALAX POWD 1 capfull once daily POLYETHYLENE GLYCOL 3350 10054389493 No Longer Active Vishal Hui MD Active PREDNISONE 20 MG TABS 1 tab po qd PREDNISONE 88151808218 No Longer Active Renzo Thornton DO Active LEVOFLOXACIN 500 MG TABS 1 tab po qd LEVOFLOXACIN 60735086537 No Longer Active Renzo Thornton DO Active BUSPIRONE HCL 15 MG TABS 1 tab po TID BUSPIRONE HCL 46285259511 No Longer Active Renzo Thornton DO Active BENZTROPINE MESYLATE 1 MG TABS 1 tab po qd BENZTROPINE MESYLATE 19968836755 No Longer Active Renzo Thornton DO Active ATENOLOL 25 MG TABS 1 tab po qd ATENOLOL 56882099270 No Longer Active Renzo Thornton DO Active ESCITALOPRAM OXALATE 20 MG TABS 1 tab po qd ESCITALOPRAM OXALATE 88507424945 No Longer Active Renzo Thornton DO Active ADVAIR DISKUS 250-50 MCG/DOSE AEPB 1 puff BID FLUTICASONE-SALMETEROL 66914010828 No Longer Active Renzo Thornton DO Active PREDNISONE 20 MG TAB 2 tabs daily for 3 days, 1 tab daily for 3 days, 1/2 tab daily for 2 days PREDNISONE 02892225456 No Longer Active Vishal Hui MD Active CEFDINIR 300 MG CAPS by mouth twice a day CEFDINIR 95358408710 No Longer Active Vishal Hui MD Active LANSOPRAZOLE 30 MG CPDR 1 cap po qd LANSOPRAZOLE 67933203221 No Longer Active Vishal Hui MD Active TOPAMAX 25 MG TABS 1 tab po bid TOPIRAMATE 09488433872 Active Vishal Hui MD Active MINIPRESS 2 MG CAPS 1 cap po at night PRAZOSIN HCL 21097958265 Active Vishal Hui MD Active BACLOFEN 20 MG TABS 1 tab po tid BACLOFEN 45854524442 Active Vishal Hui MD Active ADVAIR DISKUS 250-50 MCG/DOSE AEPB 1 puff BID ADVAIR DISKUS 250-50 MCG/DOSE AEPB FLUTICASONE-SALMETEROL Inactive ESCITALOPRAM OXALATE 20 MG TABS 1 tab po qd ESCITALOPRAM OXALATE 20 MG TABS 264591 ESCITALOPRAM OXALATE Inactive ATENOLOL 25 MG TABS 1 tab po qd ATENOLOL 25 MG TABS 762344 ATENOLOL Inactive BENZTROPINE MESYLATE 1 MG TABS 1 tab po qd BENZTROPINE MESYLATE 1 MG TABS 166130 BENZTROPINE MESYLATE Inactive BUSPIRONE HCL 15 MG TABS 1 tab po TID BUSPIRONE HCL 15 MG TABS 190772 BUSPIRONE HCL Inactive LEVOFLOXACIN 500 MG TABS 1 tab po qd LEVOFLOXACIN 500 MG TABS 579807 LEVOFLOXACIN Inactive PREDNISONE 20 MG TABS 1 tab po qd PREDNISONE 20 MG TABS 821371 PREDNISONE Inactive MIRALAX POWD 1 capfull once daily MIRALAX POWD 118257 POLYETHYLENE GLYCOL 3350 Inactive VERAPAMIL HCL ER 180 MG CR-TABS 1 tab po bid VERAPAMIL HCL ER 180 MG CR-TABS VERAPAMIL HCL Inactive LORATADINE 10 MG TABS 1 tab po qd LORATADINE 10 MG TABS 811705 LORATADINE Inactive LYRICA 50 MG CAPS 1 tab po TID LYRICA 50 MG CAPS PREGABALIN Inactive ZALEPLON 10 MG CAPS 1 cap po every other night ZALEPLON 10 MG CAPS 911278 ZALEPLON Inactive SAPHRIS 5 MG SUBL 1 tab po qd SAPHRIS 5 MG SUBL ASENAPINE MALEATE Inactive TRAZODONE HCL 50 MG TABS 1/2 tab po qd prn for anxiety TRAZODONE HCL 50 MG TABS 790750 TRAZODONE HCL Inactive LATUDA 20 MG TABS Take one by mouth daily LATUDA 20 MG TABS LURASIDONE HCL Inactive LISINOPRIL 20 MG TABS 1 tab po qd LISINOPRIL 20 MG TABS 180865 LISINOPRIL Inactive SAPHRIS 10 MG SUBL 1 [...] twice a day CEFDINIR 300 MG CAPS 511377 CEFDINIR Inactive PREDNISONE 20 MG TAB 2 tabs daily for 3 days, 1 tab daily for 3 days, 1/2 tab daily for 2 days PREDNISONE 20 MG TAB 075317 PREDNISONE Inactive BACTRIM DS 800-160 MG TABS [...] Panel - Chemistry sodium, serum 141 mmol/L 036-317 2853 potassium, serum 4.3 mmol/L 3.5-5.2 chloride, serum [...] Panel - Chemistry sodium, serum 139 mmol/L 424-723 2020/12/31 potassium, serum 4.8 mmol/L 3.5-5.2 chloride, serum 106 mmol/L 98-107 carbon dioxide, venous blood 24.3 mmol/L 21.0-32.0 blood glucose 90 mg/dL 65-110 urea nitrogen, blood 16 mg/dL 7-18 creatinine, serum 1.00 mg/dL 0.60-1.30 alanine aminotransferase (SGPT), serum 41 U/L 12-78 aspartate aminotransferase (SGOT), serum 17 U/L 15-37 calcium, serum 8.6 mg/dL 8.5-10.1 bilirubin, serum, total 0.30 mg/dL 0.00-1.00 cholesterol, serum 108 mg/dL 205-143 3429/12/31 triglyceride, serum, fasting 120 mg/dL 30-200 HDL [...] Negative Negative Lab Report: UADIP W/MICRO, AUTO, [facility] - Chemistry protein, total urine [...] semiquantitative 7.0 5.0-8.5 Lab Report: Varicella-Zoater Inga IgG,IgM/18164, HEP Be Antibody/556, RUB ... - Serology rubella antibody, serum, IgG 2.88 Encounters Code Encounter Date Provider Facility CPT-93758 Level 3 Est. Patient 14:49:50 CDT Vishal Hui MD [facility] CPT-58615 Level 4 Est. Patient 18:41:46 CDT Neeraj Collins MD [facility] CPT-65513 Level 4 Est. Patient 09:18:38 ACETONE BUTTON PASTER Vishal Hui MD [facility]-63096 Level 3 Est. Patient 14:43:55 ACETONE BUTTON PASTER Vishal Hui MD [facility] CPT-49131 Level 3 Est. Patient 15:26:33 ACETONE BUTTON PASTER Sahara Rodriguez MD PhD [facility]-83829 Level 3 Est. Patient 10:32:14 ACETONE BUTTON PASTER Vishal Hui MD [facility] CPT-66359 Level 3 Est. Patient 15:12:52 ACETONE BUTTON PASTER Vishal Hui MD [facility] CPT-22281 Level 4 Est. Patient 09:19:27 CDT Vishal Hui MD [facility] CPT-71521 Level 3 Est. Patient 15:53:00 CDT Renzo Thornton [facility] CPT-55348 Level 3 Est. Patient 15:50:30 CDT Renzo Thornton [facility] CPT-26633 Level 3 Est. Patient 16:55:24 CDT Vishal Hui MD [facility] Procedures Code Procedure Name Date Entry Date Standard Description CPT-56571 Sono transvag pelvis non OB uterus ovaries cervix 16:36: 57 CDT CPT-24107 LS spine comp w obliq 09:50:55 ACETONE BUTTON PASTER CPT-07489 Abd compl w upright 09:50:55 ACETONE BUTTON PASTER CPT-J1100 Decadron 4mg (Dexamethasone) 15:51:24 ACETONE BUTTON PASTER CPT-J1030 Depo Medrol 40 mg (Methyl Prednisolone Acetate) 15:51: 24 ACETONE BUTTON PASTER CPT-03913 Abx/Therapy Injection 15:51:24 ACETONE BUTTON PASTER CPT-J1100 Decadron 4mg (Dexamethasone) 15:26:33 ACETONE BUTTON PASTER CPT-J1030 Depo Medrol 40 mg (Methyl Prednisolone Acetate) 15:26: 33 ACETONE BUTTON PASTER CPT-15370 Sono retroperitoneal complete kidneys and bladder 17:15: 30 CDT CPT-78064 Abd compl w upright 16:09:25 CDT CPT-J1100 Decadron 8mg (Dexamethasone) 17:07:57 CDT CPT-76711 Abx/Therapy Injection 17:07:57 CDT CPT-J1100 Decadron 8mg (Dexamethasone) 16:55:24 CDT CPT-79501 Chest 2V Frontal and Lat 16:32:44 CDT
--- OUTSIDE RECORDS SUMMARY | 2016-11-04 18:11 | XMS REPORT ---
Author Author [facility] Organization [facility] Address [address] [place], [place] [address] Phone [phone] Care Team Providers Care Lab Technician Name Role Phone TINO ABRAMS MD PP [phone] Summary purpose TRANSITION OF CARE AUTO GENERATION [...]
--- OUTSIDE RECORDS SUMMARY | 2016-11-04 18:13 | XMS REPORT ---
Author Author [facility] Medical Staff Organization [facility] Address [address] [place], [place] [address] Phone [phone] Summary purpose TRANSITION OF CARE AUTO GENERATION [...] diagnostic tests and/or laboratory data RESULTS Chemistry [id number]:26:00 Result Normal Range Units Sodium 138 134-145 mEq/l Potassium 4.3 3.5-5.1 mEq/l Chloride 102 98-107 mEq/l CO2 24.4 22-28 mEq/l Glucose H 128 70-105 mg/dl BUN 16 7-18 mg/dl Creatinine 0.88 0.6-1.0 mg/dl Calcium 9.1 8.4-10.2 mg/dl TP - Total Protein 7.6 6.0-8.3 g/dl Albumin 4.1 3.5-5 g/dl Bilirubin - Total 0.2 0.1-1.0 mg/dl AST 29 10-42 IU/L ALT 64 12-65 IU/L ALP H 99 25-72 IU/L Osmolality L 278.5 280-300 mOsm/L Albumin/Globulin Ratio 1.2 0-8 Anion GAP 11.6 8-16 BUN/Creatinine Ratio 18.2 10-20 BNP- Brain Natriuretic Peptide 10 0-450 pg/ml Estimated GFR 77 >=60 mL/min/1.7 Hematology :26:00 Result Normal Range Units WBC H 12.5 4.8-10.8 103/uL RBC 4.8 4.2-5.4 106/uL HGB 15.0 12.0-16.0 g/dl HCT 44.0 36.9-47.0 % MCV 91.5 81-99 FL MCH H 31.2 27-31 pg MCHC 34.1 33-37 g/dl RDW 12.6 11.5-15.5 % PLT 318 130-400 103/uL MPV 10.4 7.3-10.4 FL Reference Lab ([facility]) :26:00 Result Normal Range Units D-Dimer < 100 0-400 ng/ml Cardiac :26:00 Result Normal Range Units CK 63 26-192 IU/L CKMB < 0.5 0-3.6 ng/ml Patient samples may contain heterophilic antibodies that could react with immunoassays to give falsely elevated or depressed results. This Dimension assay has been designed to minimize interference from heterophilic antibodies. Nevertheless, complete elimination of this interference from all patient specimens cannot be guaranteed. A test result that is inconsistent with the clinical picture and patient history should be interpreted with caution. Troponin I < 0.02 0.0-0.4 ng/ml Patient samples may contain heterophilic antibodies that could react in immunoassays to give falsely elevated or depressed results. This Dimension assay has been designed to minimize interference from heterophilic antibodies. Nevertheless, complete elimination of this interference from all patient specimens cannot be guaranteed. A test result that is inconsistent with the clinical picture and patient history should be interpreted with caution. Radiology Results :26:00 Result Normal Range Units MPV 10.4 7.3-10.4 FL History of procedures No procedures recorded for this patient visit. Functional status Functional Status Finding Observation Time Abdomen Appearance obese :50 Vick no :50 Quality sym/unlabored :50 Secretions no :50 Breath Sounds RUL clear :50 Breath Sounds RML clear :50 Breath Sounds RLL clear :50 Breath Sounds BENJA clear :50 Breath Sounds LLL clear :50 Airway natural :50 Chest Tube no :50 Oxygen no :50 Temp >100.4 no :50 Temp <96.8 no :50 Chills with rigors no :50 HR > 90bpm yes :50 Respirations > 20 no : Systolic <90 no :50 headache stiff neck no :50 IV Site Location left FA :55 IV Type peripheral :55 IV Site Information discontinued :55 IV Site Start Attmpt 1 times :50 IV Site Festus 22 :50 IV Site Appearance WNL :50 IV Site Color clear :50 IV Site Patent yes :50 Dressing Type occlusive :50 Nursing Note Home instrucitons reviewed with pt by Cecily Conley RN with written copy provided - pt is amb off unit at this time in good condition. Pt is accompanied to ER registration for complete ED check out. :25 Vital signs Type Value Date Respiration Rate 18breaths per minute : Pulse 102beats per minute : Oxygen Saturation 100% : BP Systolic 148mmHg :25 BP Diastolic 67mmHg :25 Temperature 97.3F :25 Social history Type Value Smoking Status CURRENT EVERY DAY SMOKER Treatment Plan No treatment plan text is available for this visit. Hospital discharge instructions Dismissal Condition good Disposition on DC home DC Inst/Educ Give yes PNE Vac No Flu Vac 2015 Tetanus Vac 2015
--- OUTSIDE RECORDS SUMMARY | 2016-11-04 18:13 | XMS REPORT | Clinical Summary ---
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 Juliet Kimbrough SOUND CONTROLLER Dependence on other enabling machines and devices [...] 1 po TID x 10 days CEPHALEXIN 11468367585 No Longer Active Vishal Hui MD Active ABILIFY MAINTENA 400 MG IM SUSR Injection once per month ARIPIPRAZOLE 88862270495 Active Juliet Kimbrough APRN Active PREDNISONE 20 MG TAB 2 tabs daily for 4 days, 1 tab daily for 4 days, 1/2 tab daily for 4 days PREDNISONE 90615529154 Active Vishal Hui MD Active IMITREX 50 MG ORAL TABS 1/2 tab every 6 hours prn SUMATRIPTAN SUCCINATE 23964552471 Active Luigi Martínez APRN Active AMBIEN 5 MG ORAL TABS 1 tab at bedtime ZOLPIDEM TARTRATE 26782596217 Active Luigi Martínez APRN Active PROZAC 20 MG ORAL CAPS 1 tab daily FLUOXETINE HCL 27261414348 Active Luigi Martínez APRN Active ABILIFY 15 MG ORAL TABS 1 tab daily ARIPIPRAZOLE 80484192795 Active Luigi Martínez APRN Active MINIPRESS 2 MG CAPS 4 cap po at night PRAZOSIN HCL 20147110996 Active Luigi Martínez APRN Active TOPAMAX 50 MG ORAL TABS 1 tab twice daily TOPIRAMATE 09182664543 Active Vishal Hui MD Active SAPHRIS 5 MG SUBL 1 po bid ASENAPINE MALEATE 29025271223 No Longer Active Luigi Martínez APRN Active LATUDA 80 MG TABS Take one by mouth daily LURASIDONE HCL 52827367024 No Longer Active Luigi Martínez SOUND CONTROLLER Active AMLODIPINE BESYLATE 5 MG TABS 1 tablet by mouth daily AMLODIPINE BESYLATE 63231050258 No Longer Active Luigi Martínez APRN Active AMITRIPTYLINE HCL 100 MG TAB one at hs AMITRIPTYLINE HCL 14840493619 No Longer Active Vishal Hui MD Active TRAZODONE HCL 100 MG TAB take 1 at bedtime TRAZODONE HCL 03703050193 No Longer Active Vishal Hui MD Active VYVANSE 40 MG CAPS 1 daily, LISDEXAMFETAMINE DIMESYLATE 10955384134 No Longer Active Vishal Hui MD Active IBUPROFEN 600 MG TAB 1 po TID PRN IBUPROFEN 88723921257 No Longer Active Vishal Hui MD Active MIRALAX PACK 1 po qd PRN Constipation POLYETHYLENE GLYCOL 3350 51628744339 Active Vishal Hui MD Active PROZAC 20 MG CAP Take one by mouth daily FLUOXETINE HCL 14259997121 No Longer Active Vishal Hui MD Active ZOFRAN 4 MG TABS 1 po q6hr PRN Nausea ONDANSETRON HCL Active Vishal Hui MD Active BACTRIM DS 800-160 MG TABS 1 pill by mouth twice daily SULFAMETHOXAZOLE-TRIMETHOPRIM 68236779997 No Longer Active Sahara Rodriguez MD PhD Active DIFLUCAN 150 MG TAB 1 tablet by mouth daily FLUCONAZOLE 32677222873 No Longer Active Vishal Hui MD Active TIZANIDINE HCL 4 MG TABS 1 po q6hr PRN Muscle Spasm/Back Pain TIZANIDINE HCL 63027064311 Active Luigi Martínez APRN Active CLINDAMYCIN HCL 150 MG CAPS 1 four times a day CLINDAMYCIN HCL 93273086836 No Longer Active Neeraj Collins MD Active KEFLEX 500 MG ORAL CAPS 1 cap QID by mouth CEPHALEXIN 59155253542 No Longer Active Neeraj Collins MD Active DIFLUCAN 150 MG TABS 1 pill every other day x 2 doses FLUCONAZOLE 00648686570 No Longer Active Sahara Rodriguez MD PhD Active MELATONIN 3 MG CAPS 2 po q hs MELATONIN 39226343670 No Longer Active Sahara Rodriguez MD PhD Active MULTIVITAMINS CAPS Take one by mouth daily MULTIPLE VITAMIN 43967288466 No Longer Active Sahara Rodriguez MD PhD Active BACTRIM DS 800-160 MG TAB 1 tab by mouth twice daily TRIMETHOPRIM-SULFAMETHOXAZOLE 25935365584 No Longer Active Sahara Rodriguez MD PhD Active [facility] PROBIOTIC ORAL CHEW 2 daily po PROBIOTIC PRODUCT 14997512956 No Longer Active Sahara Rodriguez MD PhD Active BACTRIM DS 800-160 MG TABS 1 po BID x 7 days SULFAMETHOXAZOLE-TRIMETHOPRIM 03097610746 No Longer Active Vishal Hui MD Active CHANTIX STARTING MONTH EARNEST 0.5 MG X 11 & 1 MG X 42 TABS 0.5mg daily for 3 days , then 0.5mg BID for 4 days, then 1mg BID VARENICLINE TARTRATE 44149693192 No Longer Active TAMARA Gray Active METOPROLOL TARTRATE 50 MG TAB 1 po bid METOPROLOL TARTRATE 77047755575 Active Vishal Hui MD Active VERAPAMIL HCL CR 120 MG TAB CR 1 po bid VERAPAMIL HCL 99751989696 No Longer Active Vishal Hui MD Active METOPROLOL SUCCINATE 50 MG TB24 1 tablet by mouth daily METOPROLOL SUCCINATE 50457607427 No Longer Active Vishal Hui MD Active TRAMADOL HCL 50 MG TABS 1-2 po TID PRN Pain TRAMADOL HCL 48041494465 Active Vishla Hui MD Active SAPHRIS 10 MG SUBL 1 tab po bid ASENAPINE MALEATE 30756954138 No Longer Active Vishal Hui MD Active LISINOPRIL 20 MG TABS 1 tab po qd LISINOPRIL 00511909193 No Longer Active Vishal Hui MD Active BENADRYL 25 MG CAP 2 po tid prn anxiety DIPHENHYDRAMINE HCL 06530735190 Active Vishal Hui MD Active LATUDA 20 MG TABS Take one by mouth daily LURASIDONE HCL 02455431362 No Longer Active Vishal Hui MD Active TRAZODONE HCL 50 MG TABS 1/2 tab po qd prn for anxiety TRAZODONE HCL 88509517157 No Longer Active Vishal Hui MD Active PIROXICAM 20 MG CAPS 1 cap po qd PRN Pain PIROXICAM 99238842958 Active Vishal Hui MD Active OMEPRAZOLE 20 MG TBEC 1 po q a.m. 30min prior to first food intake OMEPRAZOLE 61285530389 Active Vishal Hiu MD Active RANITIDINE HCL 150 MG CAPS 1 twice a day RANITIDINE HCL 22417438527 Active Vishal Hui MD Active LINZESS 290 MCG CAPS Take one by mouth daily LINACLOTIDE 23912096167 No Longer Active Vishal Hui MD Active SAPHRIS 5 MG SUBL 1 tab po qd ASENAPINE MALEATE 29784181403 No Longer Active Vishal Hui MD Active ZALEPLON 10 MG CAPS 1 cap po every other night ZALEPLON 83805731031 No Longer Active Vishal Hui MD Active LYRICA 50 MG CAPS 1 tab po TID PREGABALIN 79411158135 No Longer Active Vishal Hui MD Active LORATADINE 10 MG TABS 1 tab po qd LORATADINE 83824248945 No Longer Active Vishal Hui MD Active VERAPAMIL HCL ER 180 MG CR-TABS 1 tab po bid VERAPAMIL HCL 38486259232 No Longer Active Vishal Hui MD Active MIRALAX POWD 1 capfull once daily POLYETHYLENE GLYCOL 3350 46340671926 No Longer Active Vishal Hui MD Active PREDNISONE 20 MG TABS 1 tab po qd PREDNISONE 39555500594 No Longer Active Renzo Thornotn DO Active LEVOFLOXACIN 500 MG TABS 1 tab po qd LEVOFLOXACIN 17591340705 No Longer Active Renzo Thornton DO Active BUSPIRONE HCL 15 MG TABS 1 tab po TID BUSPIRONE HCL 76854179619 No Longer Active Renzo Thornton DO Active BENZTROPINE MESYLATE 1 MG TABS 1 tab po qd BENZTROPINE MESYLATE 65482859083 No Longer Active Renzo Thornton DO Active ATENOLOL 25 MG TABS 1 tab po qd ATENOLOL 70097496804 No Longer Active Renzo Thornton DO Active ESCITALOPRAM OXALATE 20 MG TABS 1 tab po qd ESCITALOPRAM OXALATE 21669030289 No Longer Active Renzo Thornton DO Active ADVAIR DISKUS 250-50 MCG/DOSE AEPB 1 puff BID FLUTICASONE-SALMETEROL 21744062228 No Longer Active Renzo Thornton DO Active PREDNISONE 20 MG TAB 2 tabs daily for 3 days, 1 tab daily for 3 days, 1/2 tab daily for 2 days PREDNISONE 61187252356 No Longer Active Vishal Hui MD Active CEFDINIR 300 MG CAPS by mouth twice a day CEFDINIR 93993999258 No Longer Active Vishal Hui MD Active LANSOPRAZOLE 30 MG CPDR 1 cap po qd LANSOPRAZOLE 53367453506 No Longer Active Vishal Hui MD Active BACLOFEN 20 MG TABS 1 tab po tid BACLOFEN 48175123680 No Longer Active Vishal Hui MD Active ADVAIR DISKUS 250-50 MCG/DOSE AEPB 1 puff BID ADVAIR DISKUS 250-50 MCG/DOSE AEPB FLUTICASONE-SALMETEROL Inactive ESCITALOPRAM OXALATE 20 MG TABS 1 tab po qd ESCITALOPRAM OXALATE 20 MG TABS 084538 ESCITALOPRAM OXALATE Inactive ATENOLOL 25 MG TABS 1 tab po qd ATENOLOL 25 MG TABS 340090 ATENOLOL Inactive BENZTROPINE MESYLATE 1 MG TABS 1 tab po qd BENZTROPINE MESYLATE 1 MG TABS 960843 BENZTROPINE MESYLATE Inactive BUSPIRONE HCL 15 MG TABS 1 tab po TID BUSPIRONE HCL 15 MG TABS 206895 BUSPIRONE HCL Inactive LEVOFLOXACIN 500 MG TABS 1 tab po qd LEVOFLOXACIN 500 MG TABS 487743 LEVOFLOXACIN Inactive PREDNISONE 20 MG TABS 1 tab po qd PREDNISONE 20 MG TABS 643980 PREDNISONE Inactive MIRALAX POWD 1 capfull once daily MIRALAX POWD 401670 POLYETHYLENE GLYCOL 3350 Inactive VERAPAMIL HCL ER 180 MG CR-TABS 1 tab po bid VERAPAMIL HCL ER 180 MG CR-TABS VERAPAMIL HCL Inactive LORATADINE 10 MG TABS 1 tab po qd LORATADINE 10 MG TABS 949138 LORATADINE Inactive LYRICA 50 MG CAPS 1 tab po TID LYRICA 50 MG CAPS PREGABALIN Inactive ZALEPLON 10 MG CAPS 1 cap po every other night ZALEPLON 10 MG CAPS 325779 ZALEPLON Inactive SAPHRIS 5 MG SUBL 1 tab po qd SAPHRIS 5 MG SUBL ASENAPINE MALEATE Inactive TRAZODONE HCL 50 MG TABS 1/2 tab po qd prn for anxiety TRAZODONE HCL 50 MG TABS 827924 TRAZODONE HCL Inactive LATUDA 20 MG TABS Take one by mouth daily LATUDA 20 MG TABS LURASIDONE HCL Inactive LISINOPRIL 20 MG TABS 1 tab po qd LISINOPRIL 20 MG TABS 836579 LISINOPRIL Inactive SAPHRIS 10 MG SUBL 1 [...] twice daily BACTRIM DS 800-160 MG TAB 203012 TRIMETHOPRIM-SULFAMETHOXAZOLE Inactive MULTIVITAMINS CAPS Take one by mouth daily MULTIVITAMINS CAPS MULTIPLE VITAMIN Inactive MELATONIN 3 MG CAPS 2 po q hs MELATONIN 3 MG CAPS 332792 MELATONIN Inactive KEFLEX 500 MG ORAL CAPS 1 cap QID by mouth KEFLEX 500 MG ORAL CAPS 724689 CEPHALEXIN Inactive CLINDAMYCIN HCL 150 MG CAPS 1 four times a day CLINDAMYCIN HCL 150 MG CAPS 500773 CLINDAMYCIN HCL Inactive DIFLUCAN 150 MG TAB 1 tablet by mouth daily DIFLUCAN 150 MG TAB 359401 FLUCONAZOLE Inactive PROZAC 20 MG CAP Take one by mouth daily PROZAC 20 MG CAP 648864 FLUOXETINE HCL Inactive IBUPROFEN 600 MG TAB 1 po TID PRN IBUPROFEN 600 MG TAB 296957 IBUPROFEN Inactive VYVANSE 40 MG CAPS 1 daily, VYVANSE 40 MG CAPS LISDEXAMFETAMINE DIMESYLATE Inactive TRAZODONE HCL 100 MG TAB take 1 at bedtime TRAZODONE HCL 100 MG TAB 493093 TRAZODONE HCL Inactive AMITRIPTYLINE HCL 100 MG TAB one at hs AMITRIPTYLINE HCL 100 MG TAB 142529 AMITRIPTYLINE HCL Inactive AMLODIPINE BESYLATE 5 MG TABS 1 tablet by mouth daily AMLODIPINE BESYLATE 5 MG TABS 673201 AMLODIPINE BESYLATE Inactive LATUDA 80 MG TABS Take one by mouth daily LATUDA 80 MG TABS LURASIDONE HCL Inactive SAPHRIS 5 MG SUBL 1 po bid SAPHRIS 5 MG SUBL ASENAPINE MALEATE Inactive CEFDINIR 300 MG CAPS by mouth twice a day CEFDINIR 300 MG CAPS 472841 CEFDINIR Inactive PREDNISONE 20 MG TAB 2 tabs daily for 3 days, 1 tab daily for 3 days, 1/2 tab daily for 2 days PREDNISONE 20 MG TAB 055379 PREDNISONE Inactive BACTRIM DS 800-160 MG TABS 1 po BID x 7 days BACTRIM DS 800-160 MG TABS 19820521 SULFAMETHOXAZOLE-TRIMETHOPRIM Inactive DIFLUCAN 150 MG TABS 1 pill every other day x 2 doses DIFLUCAN 150 MG TABS 785939 FLUCONAZOLE Inactive BACTRIM DS 800-160 MG TABS 1 pill by mouth twice daily BACTRIM DS 800-160 MG TABS 19820521 SULFAMETHOXAZOLE-TRIMETHOPRIM Inactive KEFLEX 500 MG CAP 1 po TID x 10 days KEFLEX 500 MG CAP 629054 CEPHALEXIN Inactive Advance Directives Directive Description Start [...] E&M - 3141-9 280 [lb_av] Weight Measured Diagnostic Results Date Name [...] % 11.6-14.8 platelet count 394 10^3/MM^3 10*3/mm3 622-036 4840/01/11 leukocyte count, blood 13.8 10^3/MM^3 10*3/mm3 4.6-10.2 [...] % 11.6-14.8 platelet count 379 10^3/MM^3 10*3/mm3 720-383 6415/12/11 neutrophils as percent of blood leukocytes 58.9 % 42.2-75.2 monocytes as percent of blood leukocytes 8.1 % 1.7-9.3 lymphocytes as percent of blood leukocytes 29.2 % 20.5-51.1 erythrocyte (RBC) count 4.26 10^6/MM^3 10*6/mm3 4.04-5.48 hemoglobin, blood 13.6 g/dL 12.0-16.0 Lab Report: CBC W/DIFF, Comp. Metabolic Panel, HGBA1C, Lipid Panel - Chemistry sodium, serum 139 mmol/L 390-641 5094/12/03 carbon dioxide, venous blood 28.5 mmol/L 21.0-32.0 [...] 5.5 % 4.3-6.0 cholesterol, serum 159 mg/dL 171-114 5154/12/03 triglyceride, serum, fasting 118 mg/dL 30-200 HDL [...] ... - Chemistry sodium, serum 140 mmol/L 897-931 9258/05/28 potassium, serum 4.2 mmol/L 3.5-5.2 chloride, serum [...] Thyroxine (L), Thyroid Stim ... - Hematology mean corpuscular volume, RBC 93 fL 80-97 mean corpuscular hemoglobin, RBC 31.4 pg 27.0-31.2 mean corpuscular hemoglobin concentration, RBC 33.6 G/DL % 31.8- 35.4 red blood cell distribution width 13.1 % 11.6-14.8 platelet count 348 10^3/MM^3 10*3/mm3 375-871 8159/05/28 hematocrit, blood 38.5 % 36.0-46.0 hemoglobin, blood 12.9 g/dL 12.0-16.0 erythrocyte (RBC) count 4.12 10^6/MM^3 10*6/mm3 4.04-5.48 leukocyte count, blood 8.8 10^3/MM^3 10*3/mm3 4.6-10.2 Lab Report: Comp. Metabolic Panel - Chemistry sodium, serum 139 mmol/L 937-198 9615/01/11 carbon dioxide, venous blood 26.6 mmol/L 21.0-32.0 potassium, serum 4.1 mmol/L 3.5-5.2 chloride, serum 100 mmol/L 98-107 blood glucose 86 mg/dL 65-110 urea nitrogen, blood 16 mg/dL 7-18 creatinine, serum 1.00 mg/dL 0.55-1.30 alanine aminotransferase (SGPT), serum 48 U/L 78 aspartate aminotransferase (SGOT), serum 17 U/L 15-37 calcium, serum 9.1 mg/dL 8.5-10.1 bilirubin, serum, total 0.40 mg/dL 0.00-1.00 sodium, serum 139 mmol/L 514-813 0749/12/22 creatinine, serum 0.90 mg/dL 0.55-1.30 alanine aminotransferase (SGPT), serum 38 U/L 78 aspartate aminotransferase (SGOT), serum 19 U/L 15-37 calcium, serum 8.6 mg/dL 8.5-10.1 bilirubin, serum, total 0.30 mg/dL 0.00-1.00 carbon dioxide, venous blood 26.8 mmol/L 21.0-32.0 potassium, serum 4.2 mmol/L 3.5-5.2 chloride, serum 103 mmol/L 98-107 blood glucose 115 mg/dL 65-110 urea nitrogen, blood 20 mg/dL 7-18 Lab Report: Comp. Metabolic Panel, Erythrocyte Sed Rate - Chemistry sodium, serum 139 mmol/L 573-338 3761/12/11 carbon dioxide, venous blood 25.4 mmol/L 21.0-32.0 [...] 5.5 5.0-8.5 glucose, urine, semiquantitative Negative Negative urobilinogen, urine, semiquantitative (dipstick) 0.2 Normal leukocyte esterase, urine, by dipstick Negative Negative nitrite, urine, semiquantitative Negative Negative glucose, urine, semiquantitative Negative Negative ketones, urine, by test strip Negative Negative bilirubin, urine Negative Negative pH, urine, semiquantitative 5.5 5.0-8.5 glucose, urine, [...] Clear Clear specific gravity, urine 1.025 1.000-1.030 urine color Yellow Colorless;Lightyellow;Straw;Yellow ketones, urine, by test strip Negative Negative bilirubin, urine Negative Negative Encounters Code Encounter Date Provider Facility CPT-65656 Level 4 Est. Patient 09:00:51 EXPERIENCE DESIGN DIRECTOR Vishal Hui MD [facility] CPT-74516 Level 3 Est. Patient 11:37:33 EXPERIENCE DESIGN DIRECTOR Vishal Hui MD [facility] CPT-31019 Level 3 Est. Patient 08:41:09 EXPERIENCE DESIGN DIRECTOR Vishal Hui MD [facility] CPT-60566 Level 4 Est. Patient 10:19:35 EXPERIENCE DESIGN DIRECTOR Vishal Hui MD [facility] CPT-46857 Level 3 Est. Patient 13:35:45 CDT Vishal Hui MD [facility] CPT-48364 Level 4 Est. Patient 10:08:37 CDT Vishal Hui MD [facility] CPT-46705 Level 3 Est. Patient 11:22:10 CDT Vishal Hui MD [facility] CPT-14319 Level 3 Est. Patient 11:03:32 CDT Sahara Rodriguez MD [facility]-27995 Level 3 Est. Patient 09:41:35 CDT Vishal Hui MD [facility] CPT-78584 Level 3 Est. Patient 12:00:41 CDT Neeraj Collins MD [facility] CPT-38822 Level 3 Est. Patient 09:16:24 CDT Vishal Hui MD [facility]-91425 Level 4 Est. Patient 13:59:09 CDT Neeraj Collins MD [facility]-17864 Level 3 Est. Patient 15:19:43 CDT Renzo Thornton DO [facility] CPT-07195 Level 3 Est. Patient 18:10:26 CDT Sahara Rodriguez MD [facility] CPT-59504 Level 3 Est. Patient 14:49:50 CDT Vishal Hui MD [facility]-88562 Level 4 Est. Patient 18:41:46 CDT Neeraj Collins MD [facility] CPT-94933 Level 4 Est. Patient 09:18:38 EXPERIENCE DESIGN DIRECTOR Vishal Hui MD [facility]-91738 Level 3 Est. Patient 14:43:55 EXPERIENCE DESIGN DIRECTOR Vishal Hui MD [facility] CPT-52153 Level 3 Est. Patient 15:26:33 EXPERIENCE DESIGN DIRECTOR Sahara Rodriguez MD [facility]-99766 Level 3 Est. Patient 10:32:14 EXPERIENCE DESIGN DIRECTOR Vishal Hui MD [facility] CPT-72224 Level 3 Est. Patient 15:12:52 EXPERIENCE DESIGN DIRECTOR Vishal Hui MD [facility]-30977 Level 4 Est. Patient 09:19:27 CDT Vishal Hui MD [facility] CPT-08185 Level 3 Est. Patient 15:53:00 CDT Renzo Thornton [facility] CPT-15418 Level 3 Est. Patient 15:50:30 CDT Renzo Thornton [facility] CPT-32054 Level 3 Est. Patient 16:55:24 CDT Vishal Hui MD [facility] Procedures Code Procedure Name Date Entry Date Standard Description CPT-J3420 Vitamin B12 1000mcg (Cyanocobalamin) 08:10:26 EXPERIENCE DESIGN DIRECTOR 04/12 CPT-66304 Abx/Therapy Injection 08:10:26 EXPERIENCE DESIGN DIRECTOR CPT-G0438 Initial Annual Wellness Exam 19:01:01 EXPERIENCE DESIGN DIRECTOR CPT-J3420 Vitamin B12 1000mcg (Cyanocobalamin) 16:57:46 CDT 08/14 CPT-51519 Recombivax HB Injection Suspension 5 MCG/0.5ML 08:37:50 EXPERIENCE DESIGN DIRECTOR CPT-39158 Immunization Single Admin 08:37:50 EXPERIENCE DESIGN DIRECTOR CPT-J3420 Vitamin B12 1000mcg (Cyanocobalamin) 08:32:16 EXPERIENCE DESIGN DIRECTOR 03/11 CPT-61709 Abx/Therapy Injection 08:32:16 EXPERIENCE DESIGN DIRECTOR CPT-21303 Chest 2V Frontal and Lat 11:46:38 EXPERIENCE DESIGN DIRECTOR CPT-33348 Venipuncture Draw Fee 09:12:45 EXPERIENCE DESIGN DIRECTOR CPT-J3420 Vitamin B12 1000mcg (Cyanocobalamin) 08:50:15 EXPERIENCE DESIGN DIRECTOR 02/08 CPT-35379 Abx/Therapy Injection 08:50:15 EXPERIENCE DESIGN DIRECTOR CPT-Cryo Cryotherapy 10:19:35 EXPERIENCE DESIGN DIRECTOR CPT-000 Give Appropriate Flu Vaccine 09:22:16 CDT CPT-J3420 Vitamin B12 1000mcg (Cyanocobalamin) 19:08:57 CDT 01/11 CPT-18955 Abx/Therapy Injection 19:08:57 CDT CPT-J3420 Vitamin B12 1000mcg (Cyanocobalamin) 08:19:08 CDT 12/11 CPT-53976 Abx/Therapy Injection 08:19:08 CDT CPT-J3420 Vitamin B12 1000mcg (Cyanocobalamin) 14:48:00 CDT 11/09 CPT-35979 Abx/Therapy Injection 14:47:59 CDT CPT-J3420 Vitamin B12 1000mcg (Cyanocobalamin) 08:34:04 CDT 10/09 CPT-32095 Abx/Therapy Injection 08:34:04 CDT CPT-J3420 Vitamin B12 1000mcg (Cyanocobalamin) 09:18:52 CDT 09/11 CPT-20420 Abx/Therapy Injection 09:18:52 CDT CPT-J3420 Vitamin B12 1000mcg (Cyanocobalamin) 08:35:44 CDT 09/04 CPT-74804 Abx/Therapy Injection 08:35:44 CDT CPT-18401 Immunization Single Admin 11:07:16 CDT CPT-34932 Hepatitis B adult IM 11:07:16 CDT CPT-J3420 Vitamin B12 1000mcg (Cyanocobalamin) 11:00:49 CDT 08/28 CPT-J1040 Depo Medrol 80 mg (Methyl Prednisolone Acetate) 11:00: 49 CDT CPT-84517 Abx/Therapy Injection 11:00:49 CDT CPT-J1040 Depo Medrol 80 mg (Methyl Prednisolone Acetate) 09:16: 23 CDT CPT-J3420 Vitamin B12 1000mcg (Cyanocobalamin) 08:27:05 CDT 08/20 CPT-19294 Abx/Therapy Injection 08:27:05 CDT CPT-32270 Recombivax HB Injection Suspension 5 MCG/0.5ML 10:00:41 CDT CPT-85881 Administration single or combination vaccine inc oral 10 :00:41 CDT CPT-51867 Sono transvag pelvis non OB uterus ovaries cervix 16:36: 57 CDT CPT-06681 LS spine comp w obliq 09:50:55 EXPERIENCE DESIGN DIRECTOR CPT-33287 Abd compl w upright 09:50:55 EXPERIENCE DESIGN DIRECTOR CPT-J1100 Decadron 4mg (Dexamethasone) 15:51:24 EXPERIENCE DESIGN DIRECTOR CPT-J1030 Depo Medrol 40 mg (Methyl Prednisolone Acetate) 15:51: 24 EXPERIENCE DESIGN DIRECTOR CPT-73149 Abx/Therapy Injection 15:51:24 EXPERIENCE DESIGN DIRECTOR CPT-J1100 Decadron 4mg (Dexamethasone) 15:26:33 EXPERIENCE DESIGN DIRECTOR CPT-J1030 Depo Medrol 40 mg (Methyl Prednisolone Acetate) 15:26: 33 EXPERIENCE DESIGN DIRECTOR CPT-66654 Sono retroperitoneal complete kidneys and bladder 17:15: 30 CDT CPT-48291 Abd compl w upright 16:09:25 CDT CPT-J1100 Decadron 8mg (Dexamethasone) 17:07:57 CDT CPT-35533 Abx/Therapy Injection 17:07:57 CDT CPT-J1100 Decadron 8mg (Dexamethasone) 16:55:24 CDT CPT-14896 Chest 2V Frontal and Lat 16:32:44 CDT
--- OUTSIDE RECORDS SUMMARY | 2016-11-04 18:16 | XMS REPORT | Clinical Summary ---
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 FLUTICASONE PROPIONATE HFA 43433791166 Active Renzo Thornton DO Active TROPICAMIDE 0.5 % OPHTH SOLN 1 drop PRN eye spasms TROPICAMIDE 61454802756 Active Samantha Stephan RMA Active RISPERDAL 4 MG ORAL TABS 1 tab at bedtime RISPERIDONE 64392759931 Active Samantha Stephan RMA Active LEVAQUIN 500 MG TABS 1 daily for infection LEVOFLOXACIN 87651142381 Active Suzan Boo APRN Active TESSALON PERLES 100 MG CAPS 1 three times a day as needed for cough BENZONATATE 58970094445 Active Suzan Boo APRN Active ZOFRAN 4 MG TABS 1 po q6hr PRN Nausea ONDANSETRON HCL No Longer Active Suzan Boo APRN Active FLUTICASONE PROPIONATE 50 MCG/ACT SUSP 2 sprays each nostril daily before bed. FLUTICASONE PROPIONATE 79796133094 No Longer Active Suzan Boo APRN Active ASPIRIN 325 MG ORAL TABS 1 tab q.d ASPIRIN 64731093003 No Longer Active Suzan Boo APRN Active HALOPERIDOL 10 MG ORAL TABS 1 tab q.d HALOPERIDOL 02243097691 No Longer Active Suzan Boo APRN Active GUAIFENESIN-CODEINE 100-10 MG/5ML SYRP 5ml every 4 to 6 hours as needed for cough GUAIFENESIN-CODEINE 74118260272 No Longer Active Suzan oBo APRN Active ZITHROMAX Z-EARNEST 250 MG TABS 2 today and then 1 daily for 4 days AZITHROMYCIN 78002698255 No Longer Active Suzan Boo APRN Active PREDNISONE 10 MG TABS 2 daily for 5 days then 1 daily for 5 days PREDNISONE 63355760798 Active Suzan Boo APRN Active CLONAZEPAM 1 MG ORAL TABS 1 twice a day and an additional 1 tablet every other day as needed for pseudoseizures or anxiety CLONAZEPAM 59707060147 Active Ahmet Carbajal MD Active HYDROCODONE-ACETAMINOPHEN 5-325 MG ORAL TABS 1 tab two times a day HYDROCODONE-ACETAMINOPHEN 68575637096 No Longer Active Ahmet Carbajal MD Active LAMICTAL 100 MG ORAL TABS 1 tab 2 times qd. LAMOTRIGINE 44614663418 Active Ahmet Carbajal MD Active PREDNISONE 20 MG TABS 2 daily for 5 days then 1 daily for 5 days PREDNISONE 04935811984 No Longer Active Ahmet Carbajal MD Active FLUTICASONE PROPIONATE 50 MCG/ACT SUSP 1 to 2 sprays each nostril daily for allergies FLUTICASONE PROPIONATE 65021208457 Active Tila Nicolas Active BENADRYL 25 MG CAP 4 po at bedtime for insomnia DIPHENHYDRAMINE HCL 63663609969 No Longer Active Ahmet Carbajal MD Active ADVAIR DISKUS 250-50 MCG/DOSE INH AEPB 1 puff twice a day for asthma FLUTICASONE-SALMETEROL 51089010835 No Longer Active Ahmet Carbajal MD Active KLONOPIN 1 MG ORAL TABS 1 tab po TID CLONAZEPAM 29336101493 No Longer Active Ahmet Carbajal MD Active ABILIFY MAINTENA 400 MG IM SUSR 400mg injection every 26 days ARIPIPRAZOLE 39402739139 No Longer Active Ahmet Carbajal MD Active TRAMADOL HCL 50 MG TABS 1/2-1 tab TID PRN TRAMADOL HCL 71362569652 No Longer Active Ahmet Carbajal MD Active BACTRIM DS 800-160 MG TABS 1 twice a day SULFAMETHOXAZOLE- TRIMETHOPRIM 68023408042 No Longer Active Ahmet Carbajal MD Active PROAIR HFA 108 (90 BASE) MCG/ACT AERS 2 puffs four times a day as needed 2015 ALBUTEROL SULFATE 93332029373 Active Ahmet Crabajal MD Active EQ NICOTINE 21 MG/24HR TRANS PT24 Apply daily to stop smoking NICOTINE 10485157483 Active Ahmet Carbajal MD Active MONISTAT 7 COMBO PACK WOODROW 100 & 2 MG-% (9GM) VAG KIT 1 applicatorful per vagina q pm x 7 MICONAZOLE NITRATE 79806540548 No Longer Active Ahmet Carbajal MD Active FLAGYL 500 MG TAB 1 tablet by mouth bid METRONIDAZOLE 24605599530 No Longer Active Ahmet Carbajal MD Active OXYCODONE HCL ER 10 MG ORAL T12A 1/2 tab by mouth every 4 hours prn OXYCODONE HCL 80758779958 No Longer Active Ahmet Carbajal MD Active METHYLPREDNISOLONE 4 MG ORAL TABS po daily METHYLPREDNISOLONE 69973398332 No Longer Active Ahmet Carbajal MD Active LEVOFLOXACIN 500 MG ORAL TABS po daily LEVOFLOXACIN 90062482579 No Longer Active Ahmet Carbajal MD Active VIIBRYD 10 MG ORAL TABS Take 1 tablet once a day VILAZODONE HCL 05317911036 No Longer Active Ahmet Carbajal MD Active TOPAMAX 50 MG ORAL TABS 1 tab twice daily TOPIRAMATE 85377135652 No Longer Active Ahmet Carbajal MD Active DICLOFENAC SODIUM 50 MG TBEC 1 tablet by mouth four times daily PRN Pain 2015 DICLOFENAC SODIUM 55096266409 No Longer Active Ahmet Carbajal MD Active ADZENYS XR-ODT 6.3 MG ORAL TBED 1 tab po daily for ADHD AMPHETAMINE 58136941363 No Longer Active Ahmet Carbajal MD Active CHANTIX 1 MG TABS 1 twice a day to help quit smoking VARENICLINE TARTRATE 28363669594 No Longer Active Dipika Burgos MD Active CHANTIX STARTING MONTH EARNEST 0.5 MG X 11 & 1 MG X 42 TABS take as directed 2015 VARENICLINE TARTRATE 01609193630 No Longer Active Dipika Burgos MD Active TESSALON PERLES 100 MG CAP 1 to 2 tablets by mouth 3 times daily as needed for cough BENZONATATE 87735964850 No Longer Active Luigi Martínez APRN Active IMITREX 50 MG ORAL TABS 0.5 po x 1 PRN Headache. May repeat dose x 1 in 2 hours if needed SUMATRIPTAN SUCCINATE 01742203184 Active Ahmet Carbajal MD Active HYDROCODONE-ACETAMINOPHEN 5-325 MG TABS 1 to 2 four times a day as needed for pain use until can be seen by specialist HYDROCODONE- ACETAMINOPHEN 02396169938 No Longer Active Vishal Hui MD Active PROAIR HFA 108 (90 BASE) MCG/ACT AERS 2 puffs four times a day as needed 2015 ALBUTEROL SULFATE 73414370915 No Longer Active Vishal Hui MD Active PREDNISONE 20 MG TABS 2 daily for 5 days then 1 daily for 5 days PREDNISONE 54872683162 No Longer Active Vishal Hui MD Active ZITHROMAX Z-EARNEST 250 MG TABS 2 today and then 1 daily for 4 days AZITHROMYCIN 77411049843 No Longer Active Vishal Hui MD Active DICLOFENAC POTASSIUM TABS Take 1 tablet twice a day (pt. is not sure of the dose.) DICLOFENAC POTASSIUM TABS 10020238461 No Longer Active Vishal Hui MD Active VERAPAMIL HCL ER 120 MG ORAL CR-TABS Take 1 tablet by mouth twice a day. VERAPAMIL HCL 33663158058 Active Vishal Hui MD Active FLAGYL 500 MG TAB 1 tablet by mouth bid METRONIDAZOLE 54369310308 No Longer Active Vishal Hui MD Active VALIUM 5 MG TAB Take 1-2 tablets daily DIAZEPAM 52709047562 No Longer Active Fabiola Johnson APRN Active METOPROLOL TARTRATE 25 MG ORAL TABS 1/2 tablet twice daily for heart rate and blood pressure METOPROLOL TARTRATE 06696110031 No Longer Active Fabiola Johnson APRN Active MIRALAX ORAL POWD 17GMS DAILY IN WATER POLYETHYLENE GLYCOL 3350 67076100917 Active TAMARA Casey Active MIRALAX PACK 1 po qd PRN Constipation POLYETHYLENE GLYCOL 3350 32768429064 No Longer Active Ahmet Carbajal MD Active MINIPRESS 2 MG CAPS 4 cap po at night PRAZOSIN HCL 22499489222 No Longer Active Ahmet Carbajal MD Active PIROXICAM 20 MG CAPS 1 cap po qd PRN Pain PIROXICAM 07034883473 No Longer Active Ahmet Carbajal MD Active TRAMADOL HCL 50 MG TABS 1-2 po TID PRN Pain TRAMADOL HCL 70690727048 No Longer Active Ahmet Carbajal MD Active METOPROLOL TARTRATE 50 MG TAB 1 po bid METOPROLOL TARTRATE 40203671987 No Longer Active Ahmet Carbajal MD Active ABILIFY 15 MG ORAL TABS 1 tab daily ARIPIPRAZOLE 95068940680 No Longer Active Ahmet Carbajal MD Active PROZAC 20 MG ORAL CAPS 1 tab daily FLUOXETINE HCL 58943003070 No Longer Active Ahmet Carbajal MD Active AMBIEN 5 MG ORAL TABS 1 tab at bedtime ZOLPIDEM TARTRATE 90029574106 No Longer Active Ahmet Carbajal MD Active PREDNISONE 20 MG TAB 2 tabs daily for 4 days, 1 tab daily for 4 days, 1/2 tab daily for 4 days PREDNISONE 76087759312 No Longer Active Ahmet Carbajal MD Active KEFLEX 500 MG CAP 1 po TID x 10 days CEPHALEXIN 29561608088 No Longer Active Vishal Hui MD Active SAPHRIS 5 MG SUBL 1 po bid ASENAPINE MALEATE 78231678358 No Longer Active 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 LATUDA 80 MG TABS Take one by mouth daily LURASIDONE HCL 27036049019 No Longer Active 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 AMLODIPINE BESYLATE 5 MG TABS 1 tablet by mouth daily AMLODIPINE BESYLATE 72260807388 No Longer Active 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 AMITRIPTYLINE HCL 100 MG TAB one at hs AMITRIPTYLINE HCL 15329660690 No Longer Active Vishal Hui MD Active TRAZODONE HCL 100 MG TAB take 1 at bedtime TRAZODONE HCL 46547611694 No Longer Active Vishal Hui MD Active VYVANSE 40 MG CAPS 1 daily, LISDEXAMFETAMINE DIMESYLATE 96741029114 No Longer Active Vishal Hui MD Active IBUPROFEN 600 MG TAB 1 po TID PRN IBUPROFEN 67514117979 No Longer Active Vishal Hui MD Active PROZAC 20 MG CAP Take one by mouth daily FLUOXETINE HCL 31748796495 No Longer Active Vishal Hui MD Active BACTRIM DS 800-160 MG TABS 1 pill by mouth twice daily SULFAMETHOXAZOLE-TRIMETHOPRIM 07029273466 No Longer Active Sahara Rodriguez MD PhD Active DIFLUCAN 150 MG TAB 1 tablet by mouth daily FLUCONAZOLE 44332517775 No Longer Active Vishal Hui MD Active TIZANIDINE HCL 4 MG TABS 1 po q6hr PRN Muscle Spasm/Back Pain TIZANIDINE HCL 71673101661 Active Vishal Hui MD Active CLINDAMYCIN HCL 150 MG CAPS 1 four times a day CLINDAMYCIN HCL 39686314284 No Longer Active Neeraj Collins MD Active KEFLEX 500 MG ORAL CAPS 1 cap QID by mouth CEPHALEXIN 43915808421 No Longer Active Neeraj Collins MD Active DIFLUCAN 150 MG TABS 1 pill every other day x 2 doses FLUCONAZOLE 24856625257 No Longer Active Sahara Rodriguez MD PhD Active MELATONIN 3 MG CAPS 2 po q hs MELATONIN 64801172943 No Longer Active Sahara Rodriguez MD PhD Active MULTIVITAMINS CAPS Take one by mouth daily MULTIPLE VITAMIN 90991816060 No Longer Active Sahara Rodriguez MD PhD Active BACTRIM DS 800-160 MG TAB 1 tab by mouth twice daily TRIMETHOPRIM-SULFAMETHOXAZOLE 44618028793 No Longer Active Sahara Rodriguez MD PhD Active [facility] PROBIOTIC ORAL CHEW 2 daily po PROBIOTIC PRODUCT 82390188425 No Longer Active Sahara Rodriguez MD PhD Active BACTRIM DS 800-160 MG TABS 1 po BID x 7 days SULFAMETHOXAZOLE-TRIMETHOPRIM 23294827969 No Longer Active Vishal Hui MD Active CHANTIX STARTING MONTH EARNEST 0.5 MG X 11 & 1 MG X 42 TABS 0.5mg daily for 3 days , then 0.5mg BID for 4 days, then 1mg BID VARENICLINE TARTRATE 93672104517 No Longer Active TAMARA Gray Active VERAPAMIL HCL CR 120 MG TAB CR 1 po bid VERAPAMIL HCL 50068156500 No Longer Active Vishal Hui MD Active METOPROLOL SUCCINATE 50 MG TB24 1 tablet by mouth daily METOPROLOL SUCCINATE 33732600729 No Longer Active Vishal Hui MD Active SAPHRIS 10 MG SUBL 1 tab po bid ASENAPINE MALEATE 06005489116 No Longer Active iVshal Hui MD Active LISINOPRIL 20 MG TABS 1 tab po qd LISINOPRIL 84799936410 No Longer Active Vishal Hui MD Active LATUDA 20 MG TABS Take one by mouth daily LURASIDONE HCL 47973149628 No Longer Active Vishal Hui MD Active TRAZODONE HCL 50 MG TABS 1/2 tab po qd prn for anxiety TRAZODONE HCL 97981903422 No Longer Active Vishal Hui MD Active OMEPRAZOLE 20 MG TBEC 1 po q a.m. 30min prior to first food intake OMEPRAZOLE 63555077821 Active TAMARA Casey Active RANITIDINE HCL 150 MG CAPS 1 twice a day RANITIDINE HCL 35725799743 Active Luigi Martínez APRN Active LINZESS 290 MCG CAPS Take one by mouth daily LINACLOTIDE 04584949546 No Longer Active Vishal Hui MD Active SAPHRIS 5 MG SUBL 1 tab po qd ASENAPINE MALEATE 00605882597 No Longer Active Vishal Hui MD Active ZALEPLON 10 MG CAPS 1 cap po every other night ZALEPLON 64685479027 No Longer Active Vishal Hui MD Active LYRICA 50 MG CAPS 1 tab po TID PREGABALIN 09674808206 No Longer Active Vishal Hui MD Active LORATADINE 10 MG TABS 1 tab po qd LORATADINE 12042501024 No Longer Active Vishal Hui MD Active VERAPAMIL HCL ER 180 MG CR-TABS 1 tab po bid VERAPAMIL HCL 18307051823 No Longer Active Vishal Hui MD Active MIRALAX POWD 1 capfull once daily POLYETHYLENE GLYCOL 3350 02572990051 No Longer Active Vishal Hui MD Active PREDNISONE 20 MG TABS 1 tab po qd PREDNISONE 20338943139 No Longer Active Renzo Thornton DO Active LEVOFLOXACIN 500 MG TABS 1 tab po qd LEVOFLOXACIN 23391505813 No Longer Active Renzo Thornton DO Active BUSPIRONE HCL 15 MG TABS 1 tab po TID BUSPIRONE HCL 80204299560 No Longer Active Renzo Thornton DO Active BENZTROPINE MESYLATE 1 MG TABS 1 tab po qd BENZTROPINE MESYLATE 09501317626 No Longer Active Renzo Thornton DO Active ATENOLOL 25 MG TABS 1 tab po qd ATENOLOL 55953756244 No Longer Active Renzo Thornton DO Active ESCITALOPRAM OXALATE 20 MG TABS 1 tab po qd ESCITALOPRAM OXALATE 02669074656 No Longer Active Renzo Thornton DO Active ADVAIR DISKUS 250-50 MCG/DOSE AEPB 1 puff BID FLUTICASONE-SALMETEROL 93835357660 No Longer Active Renzo Thornton DO Active PREDNISONE 20 MG TAB 2 tabs daily for 3 days, 1 tab daily for 3 days, 1/2 tab daily for 2 days PREDNISONE 33600895599 No Longer Active Vishal Hui MD Active CEFDINIR 300 MG CAPS by mouth twice a day CEFDINIR 42622323528 No Longer Active Vishal Hui MD Active LANSOPRAZOLE 30 MG CPDR 1 cap po qd LANSOPRAZOLE 55683021105 No Longer Active Vishal Hui MD Active BACLOFEN 20 MG TABS 1 tab po tid BACLOFEN 57622808725 No Longer Active Vishal Hui MD Active ADVAIR DISKUS 250-50 MCG/DOSE AEPB 1 puff BID ADVAIR DISKUS 250-50 MCG/DOSE AEPB FLUTICASONE-SALMETEROL Inactive ESCITALOPRAM OXALATE 20 MG TABS 1 tab po qd ESCITALOPRAM OXALATE 20 MG TABS 666763 ESCITALOPRAM OXALATE Inactive ATENOLOL 25 MG TABS 1 tab po qd ATENOLOL 25 MG TABS 786737 ATENOLOL Inactive BENZTROPINE MESYLATE 1 MG TABS 1 tab po qd BENZTROPINE MESYLATE 1 MG TABS 219385 BENZTROPINE MESYLATE Inactive BUSPIRONE HCL 15 MG TABS 1 tab po TID BUSPIRONE HCL 15 MG TABS 764690 BUSPIRONE HCL Inactive LEVOFLOXACIN 500 MG TABS 1 tab po qd LEVOFLOXACIN 500 MG TABS 895035 LEVOFLOXACIN Inactive PREDNISONE 20 MG TABS 1 tab po qd PREDNISONE 20 MG TABS 229408 PREDNISONE Inactive MIRALAX POWD 1 capfull once daily MIRALAX POWD 359881 POLYETHYLENE GLYCOL 3350 Inactive VERAPAMIL HCL ER 180 MG CR-TABS 1 tab po bid VERAPAMIL HCL ER 180 MG CR-TABS VERAPAMIL HCL Inactive LORATADINE 10 MG TABS 1 tab po qd LORATADINE 10 MG TABS 025114 LORATADINE Inactive LYRICA 50 MG CAPS 1 tab po TID LYRICA 50 MG CAPS PREGABALIN Inactive ZALEPLON 10 MG CAPS 1 cap po every other night ZALEPLON 10 MG CAPS 659323 ZALEPLON Inactive SAPHRIS 5 MG SUBL 1 tab po qd SAPHRIS 5 MG SUBL ASENAPINE MALEATE Inactive TRAZODONE HCL 50 MG TABS 1/2 tab po qd prn for anxiety TRAZODONE HCL 50 MG TABS 321938 TRAZODONE HCL Inactive LATUDA 20 MG TABS Take one by mouth daily LATUDA 20 MG TABS LURASIDONE HCL Inactive LISINOPRIL 20 MG TABS 1 tab po qd LISINOPRIL 20 MG TABS 512175 LISINOPRIL Inactive SAPHRIS 10 MG SUBL 1 [...] twice daily BACTRIM DS 800-160 MG TAB 514699 TRIMETHOPRIM-SULFAMETHOXAZOLE Inactive MULTIVITAMINS CAPS Take one by mouth daily MULTIVITAMINS CAPS MULTIPLE VITAMIN Inactive MELATONIN 3 MG CAPS 2 po q hs MELATONIN 3 MG CAPS 459983 MELATONIN Inactive KEFLEX 500 MG ORAL CAPS 1 cap QID by mouth KEFLEX 500 MG ORAL CAPS 731494 CEPHALEXIN Inactive CLINDAMYCIN HCL 150 MG CAPS 1 four times a day CLINDAMYCIN HCL 150 MG CAPS 19740326 CLINDAMYCIN HCL Inactive DIFLUCAN 150 MG TAB 1 tablet by mouth daily DIFLUCAN 150 MG TAB 094197 FLUCONAZOLE Inactive PROZAC 20 MG CAP Take one by mouth daily PROZAC 20 MG CAP 194967 FLUOXETINE HCL Inactive IBUPROFEN 600 MG TAB 1 po TID PRN IBUPROFEN 600 MG TAB 559898 IBUPROFEN Inactive VYVANSE 40 MG CAPS 1 daily, VYVANSE 40 MG CAPS LISDEXAMFETAMINE DIMESYLATE Inactive TRAZODONE HCL 100 MG TAB take 1 at bedtime TRAZODONE HCL 100 MG TAB 468856 TRAZODONE HCL Inactive AMITRIPTYLINE HCL 100 MG TAB one at hs AMITRIPTYLINE HCL 100 MG TAB 649631 AMITRIPTYLINE HCL Inactive AMLODIPINE BESYLATE 5 MG TABS 1 tablet by mouth daily AMLODIPINE BESYLATE 5 MG TABS 916308 AMLODIPINE BESYLATE Inactive LATUDA 80 MG TABS Take one by mouth daily LATUDA 80 MG TABS LURASIDONE HCL Inactive SAPHRIS 5 MG SUBL 1 po bid SAPHRIS 5 MG SUBL ASENAPINE MALEATE Inactive PREDNISONE 20 MG TAB 2 tabs daily for 4 days, 1 tab daily for 4 days, 1/2 tab daily for 4 days PREDNISONE 20 MG TAB 355387 PREDNISONE Inactive AMBIEN 5 MG ORAL TABS 1 tab at bedtime AMBIEN 5 MG ORAL TABS 126675 ZOLPIDEM TARTRATE Inactive PROZAC 20 MG ORAL CAPS 1 tab daily PROZAC 20 MG ORAL CAPS 230725 FLUOXETINE HCL Inactive ABILIFY 15 MG ORAL TABS 1 tab daily ABILIFY 15 MG ORAL TABS 104294 ARIPIPRAZOLE Inactive METOPROLOL TARTRATE 50 MG TAB 1 po bid METOPROLOL TARTRATE 50 MG TAB 164697 METOPROLOL TARTRATE Inactive TRAMADOL HCL 50 MG TABS 1-2 po TID PRN Pain TRAMADOL HCL 50 MG TABS 852844 TRAMADOL HCL Inactive PIROXICAM 20 MG CAPS 1 cap po qd PRN Pain PIROXICAM 20 MG CAPS 777488 PIROXICAM Inactive MINIPRESS 2 MG CAPS 4 cap po at night MINIPRESS 2 MG CAPS 165379 PRAZOSIN HCL Inactive MIRALAX PACK 1 po qd PRN Constipation MIRALAX PACK 035255 POLYETHYLENE GLYCOL 3350 Inactive METOPROLOL TARTRATE 25 MG ORAL TABS 1/2 tablet twice daily for heart rate and blood pressure METOPROLOL TARTRATE 25 MG ORAL TABS 084294 METOPROLOL TARTRATE Inactive VALIUM 5 MG TAB Take 1-2 tablets daily VALIUM 5 MG TAB 363384 DIAZEPAM Inactive FLAGYL 500 MG TAB 1 tablet by mouth bid FLAGYL 500 MG TAB 884000 METRONIDAZOLE Inactive DICLOFENAC POTASSIUM TABS Take 1 tablet twice a day (pt. is not sure of the dose.) DICLOFENAC POTASSIUM TABS DICLOFENAC POTASSIUM TABS Inactive ZITHROMAX Z-EARNEST 250 MG TABS 2 today and then 1 daily for 4 days ZITHROMAX Z-EARNEST 250 MG TABS 1085286 AZITHROMYCIN Inactive PREDNISONE 20 MG TABS 2 daily for 5 days then 1 daily for 5 days PREDNISONE 20 MG TABS 410371 PREDNISONE Inactive PROAIR HFA 108 (90 BASE) MCG/ACT AERS 2 puffs four times a day as needed 2015 PROAIR HFA 108 (90 BASE) MCG/ACT AERS ALBUTEROL SULFATE Inactive HYDROCODONE-ACETAMINOPHEN 5-325 MG TABS 1 to 2 four times a day as needed for pain use until can be seen by specialist HYDROCODONE- ACETAMINOPHEN 5-325 MG TABS 401621 HYDROCODONE-ACETAMINOPHEN Inactive TESSALON PERLES 100 MG CAP 1 to 2 tablets by mouth 3 times daily as needed for cough TESSALON PERLES 100 MG CAP 559520 BENZONATATE Inactive CHANTIX STARTING MONTH EARNEST 0.5 [...] Pain 2015 DICLOFENAC SODIUM 50 MG TBEC 300485 DICLOFENAC SODIUM Inactive TOPAMAX 50 MG ORAL TABS 1 tab twice daily TOPAMAX 50 MG ORAL TABS 943182 TOPIRAMATE Inactive VIIBRYD 10 MG ORAL TABS Take 1 tablet once a day VIIBRYD 10 MG ORAL TABS VILAZODONE HCL Inactive LEVOFLOXACIN 500 MG ORAL TABS po daily LEVOFLOXACIN 500 MG ORAL TABS 691997 LEVOFLOXACIN Inactive METHYLPREDNISOLONE 4 MG ORAL TABS po daily METHYLPREDNISOLONE 4 MG ORAL TABS 452304 METHYLPREDNISOLONE Inactive OXYCODONE HCL ER 10 MG ORAL T12A 1/2 tab by mouth every 4 hours prn OXYCODONE HCL ER 10 MG ORAL T12A OXYCODONE HCL Inactive FLAGYL 500 MG TAB 1 tablet by mouth bid FLAGYL 500 MG TAB 984014 METRONIDAZOLE Inactive MONISTAT 7 COMBO PACK WOODROW 100 & 2 MG-% (9GM) VAG KIT 1 applicatorful per vagina q pm x 7 MONISTAT 7 COMBO PACK WOODROW 100 & 2 MG-% (9GM) VAG KIT MICONAZOLE NITRATE Inactive BACTRIM DS 800-160 MG TABS 1 twice a day BACTRIM DS 800-160 MG TABS 106537 SULFAMETHOXAZOLE-TRIMETHOPRIM Inactive TRAMADOL HCL 50 MG TABS 1/2-1 tab TID PRN TRAMADOL HCL 50 MG TABS 010118 TRAMADOL HCL Inactive ABILIFY MAINTENA 400 MG IM SUSR 400mg injection every 26 days ABILIFY MAINTENA 400 MG IM SUSR ARIPIPRAZOLE Inactive KLONOPIN 1 MG ORAL TABS 1 tab po TID KLONOPIN 1 MG ORAL TABS 613365 CLONAZEPAM Inactive ADVAIR DISKUS 250-50 MCG/DOSE INH AEPB 1 puff twice a day for asthma ADVAIR DISKUS 250-50 MCG/DOSE INH AEPB FLUTICASONE- SALMETEROL Inactive BENADRYL 25 MG CAP 4 po at bedtime for insomnia BENADRYL 25 MG CAP DIPHENHYDRAMINE HCL Inactive PREDNISONE 20 MG TABS 2 daily for 5 days then 1 daily for 5 days PREDNISONE 20 MG TABS 124326 PREDNISONE Inactive HYDROCODONE-ACETAMINOPHEN 5-325 MG ORAL TABS 1 tab two times a day HYDROCODONE-ACETAMINOPHEN 5-325 MG ORAL TABS 548831 HYDROCODONE-ACETAMINOPHEN Inactive ZITHROMAX Z-EARNEST 250 MG TABS 2 today and then 1 daily for 4 days ZITHROMAX Z-EARNEST 250 MG TABS 2922794 AZITHROMYCIN Inactive GUAIFENESIN-CODEINE 100-10 MG/5ML SYRP 5ml every 4 to 6 hours as needed for cough GUAIFENESIN-CODEINE 100-10 MG/5ML SYRP 745615 GUAIFENESIN-CODEINE Inactive HALOPERIDOL 10 MG ORAL TABS 1 tab q.d HALOPERIDOL 10 MG ORAL TABS 155615 HALOPERIDOL Inactive ASPIRIN 325 MG ORAL TABS 1 tab q.d ASPIRIN 325 MG ORAL TABS 223526 ASPIRIN Inactive FLUTICASONE PROPIONATE 50 MCG/ACT SUSP 2 sprays each nostril daily before bed. FLUTICASONE PROPIONATE 50 MCG/ACT SUSP 2418672 FLUTICASONE PROPIONATE Inactive ZOFRAN 4 MG TABS 1 po q6hr PRN Nausea ZOFRAN 4 MG TABS 143699 ONDANSETRON HCL Inactive CEFDINIR 300 MG CAPS by mouth twice a day CEFDINIR 300 MG CAPS 056189 CEFDINIR Inactive PREDNISONE 20 MG TAB 2 tabs daily for 3 days, 1 tab daily for 3 days, 1/2 tab daily for 2 days PREDNISONE 20 MG TAB 472660 PREDNISONE Inactive BACTRIM DS 800-160 MG TABS 1 po BID x 7 days BACTRIM DS 800-160 MG TABS 19820521 SULFAMETHOXAZOLE-TRIMETHOPRIM Inactive DIFLUCAN 150 MG TABS 1 pill every other day x 2 doses DIFLUCAN 150 MG TABS 492592 FLUCONAZOLE Inactive BACTRIM DS 800-160 MG TABS 1 pill by mouth twice daily BACTRIM DS 800-160 MG TABS 19820521 SULFAMETHOXAZOLE-TRIMETHOPRIM Inactive KEFLEX 500 MG CAP 1 po TID x 10 days KEFLEX 500 MG CAP 968826 CEPHALEXIN Inactive Advance Directives Directive Description Start [...] % 11.0-15.0 platelet count 443 THOUSAND/UL 10*3/mm3 902-546 6041/03/01 mean platelet volume 8.2 fL 7.5-12.5 Lab [...] 369 10^3/MM^3 10*3/mm3 142-424 Lab Report: Chlamydia/GC APTIMA/[id number] - Lab chlamydia DNA probe NOT DETECTED NOT DETECTED Lab Report: Chlamydia/GC APTIMA/[id number] - Microbiology Neisseria gonorrhoeae DNA probe NOT DETECTED NOT DETECTED Lab Report: Chlamydia/GC APTIMA/88516, Urinalysis, Complete, with Reflex ... - Lab chlamydia DNA probe NOT DETECTED NOT DETECTED Lab Report: Chlamydia/GC APTIMA/[id number], Urinalysis, Complete, with Reflex ... - Microbiology Neisseria gonorrhoeae DNA probe NOT DETECTED NOT DETECTED Lab Report: Chlamydia/GC APTIMA/87401, Urinalysis, Complete, with Reflex ... - Urinalysis microalbumin/total urine volume 2 mg/L Units converted. See lab report for original value. microalbumin/creatinine ratio, urine 9 MCG/MG CREAT mg/L <30 Lab Report: Comp. Metabolic Panel - Chemistry sodium, serum 142 mmol/L 083-550 9842/06/08 carbon dioxide, venous blood 27.6 mmol/L 21.0-32.0 potassium, serum 4.0 mmol/L 3.5-5.2 chloride, serum 105 mmol/L 98-107 blood glucose 95 mg/dL 65-110 urea nitrogen, blood 8 mg/dL 7-18 creatinine, serum 0.75 mg/dL 0.55-1.30 alanine aminotransferase (SGPT), serum 49 U/L - aspartate aminotransferase (SGOT), serum 28 U/L 15-37 calcium, serum 9.4 mg/dL 8.5-10.1 bilirubin, serum, total 0.30 mg/dL 0.00-1.00 sodium, serum 140 mmol/L 130-290 7054/08/08 carbon dioxide, venous blood 33.7 mmol/L 21.0-32.0 [...] mg/dL Encounters Code Encounter Date Provider Facility CPT-55947 Level 3 Est. Patient 11:04:38 CDT Renzo W [facility] CPT-87559 Level 3 Est. 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 Patient 15:28:23 LEARNING AND DEVELOPMENT ANALYST Suzan Boo [facility] CPT-56021 Level 4 Est. Patient 10:20:54 LEARNING AND DEVELOPMENT ANALYST Suzan Boo [facility] CPT-50050 Level 3 Est. Patient 11:47:37 LEARNING AND DEVELOPMENT ANALYST Ahmet Carbajal MD [id number] Level 3 Est. Patient 10:40:11 LEARNING AND DEVELOPMENT ANALYST Ahmet Carbajal MD [facility] CPT-05039 Level 3 Est. Patient 15:07:06 LEARNING AND DEVELOPMENT ANALYST Neeraj Collins MD [facility] CPT-25765 Level 4 Est. Patient 14:45:00 LEARNING AND DEVELOPMENT ANALYST Ahmet Carbajal MD [facility] CPT-62068 Level 3 Est. Patient 13:59:59 CDT Luiig Martínez [facility] CPT-73282 Level 3 Est. Patient 18:18:53 CDT Neeraj Collins MD [facility]-52265 Level 3 Est. Patient 15:50:44 CDT Vishal Hui MD [facility] CPT-68751 Level 3 Est. Patient 11:36:17 CDT Ahmet Carbajal MD [facility] CPT-52630 Level 3 Est. Patient 13:29:16 CDT Vishal Hui MD [facility] CPT-00747 Level 3 Est. Patient 14:27:52 CDT Neeraj Collins MD [facility] CPT-41259 Level 3 Est. Patient 08:56:03 CDT Luigi Martínez [facility] CPT-50545 Level 4 Est. Patient 12:11:48 CDT Fabiola Johnson [facility] CPT-28976 Level 3 New Patient 16:53:37 CDT Albert Caldera MD [facility] CPT-18207 Level 3 Est. Patient 11:25:49 CDT Renzo Thornton [facility] CPT-15577 Level 3 Est. Patient 15:22:01 CDT Ahmet Carbajal MD [facility] CPT-37636 Level 4 Est. Patient 09:00:51 LEARNING AND DEVELOPMENT ANALYST Vishal Hui MD [facility] CPT-05261 Level 3 Est. Patient 11:37:33 LEARNING AND DEVELOPMENT ANALYST Vishal Hui MD [facility] CPT-75676 Level 3 Est. Patient 08:41:09 LEARNING AND DEVELOPMENT ANALYST Vishal Hui MD [facility] CPT-13292 Level 4 Est. Patient 10:19:35 LEARNING AND DEVELOPMENT ANALYST Vishal Hui MD [facility] CPT-51132 Level 3 Est. Patient 13:35:45 CDT Vishal Hui MD [facility] CPT-32014 Level 4 Est. Patient 10:08:37 CDT Vishal Hui MD [facility] CPT-92196 Level 3 Est. Patient 11:22:10 CDT Vishal Hui MD [facility] CPT-34286 Level 3 Est. Patient 11:03:32 CDT Sahara Rodriguez MD, PhD [facility] CPT-31681 Level 3 Est. Patient 09:41:35 CDT Vishal Hui MD [facility] CPT-34495 Level 3 Est. Patient 12:00:41 CDT Neeraj Collins MD [facility] CPT-05064 Level 3 Est. Patient 09:16:24 CDT Vishal Hui MD [facility] CPT-68652 Level 4 Est. Patient 13:59:09 CDT Neeraj Collins MD [facility] CPT-76387 Level 3 Est. Patient 15:19:43 CDT Renzo Thornton [facility] CPT-73316 Level 3 Est. Patient 18:10:26 CDT Sahara Rodriguez MD PhD [facility] CPT-19722 Level 3 Est. Patient 14:49:50 CDT Vishal Hui MD [facility] CPT-52540 Level 4 Est. Patient 18:41:46 CDT Neeraj Collins MD [facility] CPT-69517 Level 4 Est. Patient 09:18:38 LEARNING AND DEVELOPMENT ANALYST Vishal Hui MD [facility] CPT-68137 Level 3 Est. Patient 14:43:55 LEARNING AND DEVELOPMENT ANALYST Vishal Hui MD [facility] CPT-30829 Level 3 Est. Patient 15:26:33 LEARNING AND DEVELOPMENT ANALYST Sahara Rodriguez MD PhD [facility] CPT-46212 Level 3 Est. Patient 10:32:14 LEARNING AND DEVELOPMENT ANALYST Vishal Hui MD [facility] CPT-51246 Level 3 Est. Patient 15:12:52 LEARNING AND DEVELOPMENT ANALYST Vishal Hui MD [facility] CPT-63912 Level 4 Est. Patient 09:19:27 CDT Vishal Hui MD [facility] CPT-18391 Level 3 Est. Patient 15:53:00 CDT Renzo Thornton [facility] CPT-98827 Level 3 Est. Patient 15:50:30 CDT Renzo Thornton [facility] CPT-37485 Level 3 Est. Patient 16:55:24 CDT Vishal Hui MD [facility] Procedures Code Procedure Name Date Entry Date Standard Description CPT-90103 Smoking Cessation counseling 11:15:58 LEARNING AND DEVELOPMENT ANALYST CPT-G0439 [facility] Annual Wellness Exam 09:30:58 LEARNING AND DEVELOPMENT ANALYST CPT-12267 TSH - LAB USE ONLY 08:50:26 LEARNING AND DEVELOPMENT ANALYST CPT-65636 CBC - LAB USE ONLY 08:50:26 LEARNING AND DEVELOPMENT ANALYST CPT-62129 Venipuncture Draw Fee 08:50:26 LEARNING AND DEVELOPMENT ANALYST CPT-21153 Abx/Therapy Injection 17:34:30 LEARNING AND DEVELOPMENT ANALYST CPT-39758 Nexplanon Removal with Reinsertion 14:09:32 CDT CPT-J7307 Nexplanon (Implant) 14:09:32 CDT CPT-OV Office Visit 14:09:32 CDT CPT-00626 UA w micro - LAB USE ONLY 16:21:13 CDT CPT-19909 Wet Mount - LAB USE ONLY 16:21:13 CDT CPT-83228 First Vx - Ix admin for Medicare patients 14:37:47 CDT CPT-68614 Fluzone Preservative Free Intramuscular Suspension 14:37 :47 CDT CPT-84521 Abx/Therapy Injection 13:54:22 CDT CPT-14412 Abx/Therapy Injection 08:47:09 CDT CPT-42402 Abx/Therapy Injection 13:29:56 CDT CPT-15250 Abx/Therapy Injection 08:36:16 CDT CPT-37041 Wet Mount - LAB USE ONLY 17:44:58 CDT CPT-23984 UA w micro - LAB USE ONLY 17:44:58 CDT CPT-34630 CMP - LAB USE ONLY 17:44:58 CDT CPT-00607 Venipuncture Draw Fee 17:44:58 CDT CPT-88978 Cervical Min 4V - XRAY USE ONLY 09:01:40 CDT CPT-30669 Chest 2V Frontal and Lat - XRAY USE ONLY 11:06:31 CDT CPT-37329 EKG Trac and Interp - XRAY USE ONLY 11:31:43 CDT 08/26 CPT-J3420 Vitamin B12 1000mcg (Cyanocobalamin) 08:10:26 LEARNING AND DEVELOPMENT ANALYST 04/12 CPT-53110 Abx/Therapy Injection 08:10:26 LEARNING AND DEVELOPMENT ANALYST CPT-G0438 Initial Annual Wellness Exam 19:01:01 LEARNING AND DEVELOPMENT ANALYST CPT-J3420 Vitamin B12 1000mcg (Cyanocobalamin) 16:57:46 CDT 08/14 CPT-98154 Recombivax HB Injection Suspension 5 MCG/0.5ML 08:37:50 LEARNING AND DEVELOPMENT ANALYST CPT-09199 Immunization Single Admin 08:37:50 LEARNING AND DEVELOPMENT ANALYST CPT-J3420 Vitamin B12 1000mcg (Cyanocobalamin) 08:32:16 LEARNING AND DEVELOPMENT ANALYST 03/11 CPT-21491 Abx/Therapy Injection 08:32:16 LEARNING AND DEVELOPMENT ANALYST CPT-40260 Chest 2V Frontal and Lat 11:46:38 LEARNING AND DEVELOPMENT ANALYST CPT-95942 Venipuncture Draw Fee 09:12:45 LEARNING AND DEVELOPMENT ANALYST CPT-J3420 Vitamin B12 1000mcg (Cyanocobalamin) 08:50:15 LEARNING AND DEVELOPMENT ANALYST 02/08 CPT-55949 Abx/Therapy Injection 08:50:15 LEARNING AND DEVELOPMENT ANALYST CPT-Cryo Cryotherapy 10:19:35 LEARNING AND DEVELOPMENT ANALYST CPT-000 Give Appropriate Flu Vaccine 09:22:16 CDT CPT-J3420 Vitamin B12 1000mcg (Cyanocobalamin) 19:08:57 CDT 01/11 CPT-28225 Abx/Therapy Injection 19:08:57 CDT CPT-J3420 Vitamin B12 1000mcg (Cyanocobalamin) 08:19:08 CDT 12/11 CPT-82444 Abx/Therapy Injection 08:19:08 CDT CPT-J3420 Vitamin B12 1000mcg (Cyanocobalamin) 14:48:00 CDT 11/09 CPT-15457 Abx/Therapy Injection 14:47:59 CDT CPT-J3420 Vitamin B12 1000mcg (Cyanocobalamin) 08:34:04 CDT 10/09 CPT-31839 Abx/Therapy Injection 08:34:04 CDT CPT-J3420 Vitamin B12 1000mcg (Cyanocobalamin) 09:18:52 CDT 09/11 CPT-58265 Abx/Therapy Injection 09:18:52 CDT CPT-J3420 Vitamin B12 1000mcg (Cyanocobalamin) 08:35:44 CDT 09/04 CPT-62936 Abx/Therapy Injection 08:35:44 CDT CPT-94238 Immunization Single Admin 11:07:16 CDT CPT-33243 Hepatitis B adult IM 11:07:16 CDT CPT-J3420 Vitamin B12 1000mcg (Cyanocobalamin) 11:00:49 CDT 08/28 CPT-J1040 Depo Medrol 80 mg (Methyl Prednisolone Acetate) 11:00: 49 CDT CPT-95869 Abx/Therapy Injection 11:00:49 CDT CPT-J1040 Depo Medrol 80 mg (Methyl Prednisolone Acetate) 09:16: 23 CDT CPT-J3420 Vitamin B12 1000mcg (Cyanocobalamin) 08:27:05 CDT 08/20 CPT-53167 Abx/Therapy Injection 08:27:05 CDT CPT-42694 Recombivax HB Injection Suspension 5 MCG/0.5ML 10:00:41 CDT CPT-97973 Administration single or combination vaccine inc oral 10 :00:41 CDT CPT-69629 Sono transvag pelvis non OB uterus ovaries cervix 16:36: 57 CDT CPT-93306 LS spine comp w obliq 09:50:55 LEARNING AND DEVELOPMENT ANALYST CPT-85497 Abd compl w upright 09:50:55 LEARNING AND DEVELOPMENT ANALYST CPT-J1100 Decadron 4mg (Dexamethasone) 15:51:24 LEARNING AND DEVELOPMENT ANALYST CPT-J1030 Depo Medrol 40 mg (Methyl Prednisolone Acetate) 15:51: 24 LEARNING AND DEVELOPMENT ANALYST CPT-64452 Abx/Therapy Injection 15:51:24 LEARNING AND DEVELOPMENT ANALYST CPT-J1100 Decadron 4mg (Dexamethasone) 15:26:33 LEARNING AND DEVELOPMENT ANALYST CPT-J1030 Depo Medrol 40 mg (Methyl Prednisolone Acetate) 15:26: 33 LEARNING AND DEVELOPMENT ANALYST CPT-36446 Sono retroperitoneal complete kidneys and bladder 17:15: 30 CDT CPT-17508 Abd compl w upright 16:09:25 CDT CPT-J1100 Decadron 8mg (Dexamethasone) 17:07:57 CDT CPT-54852 Abx/Therapy Injection 17:07:57 CDT CPT-J1100 Decadron 8mg (Dexamethasone) 16:55:24 CDT CPT-73496 Chest 2V Frontal and Lat 16:32:44 CDT
--- OUTSIDE RECORDS SUMMARY | 2016-11-04 18:19 | XMS REPORT | Clinical Summary ---
Author Author Admin, E Organization 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 Inactive Vishal Hui MD Health screening ICD-V70.0 Inactive Suzan Boo APRN Encounter for removal of sutures ICD-V58.32 Inactive [...] SOLN 30mL oral daily for IBS-C LACTULOSE 30082153129 Active Suzan Boo APRN Active TESSALON PERLES 100 MG CAPS 1 three times a day as needed for cough BENZONATATE 54691495866 No Longer Active Suzan Boo APRN Active BACTRIM DS 800-160 MG TABS 1 twice a day SULFAMETHOXAZOLE-TRIMETHOPRIM 07312125908 No Longer Active Suzan Boo APRN Active DIFLUCAN 150 MG TABS 1 by mouth for yeast FLUCONAZOLE 17257774034 No Longer Active Suzan Boo APRN Active EQ NICOTINE 21 MG/24HR TRANS PT24 Apply daily to stop smoking NICOTINE 48659602726 No Longer Active Suzan Boo APRN Active PREDNISONE 10 MG TABS 2 daily for 5 days then 1 daily for 5 days PREDNISONE 08402803401 No Longer Active Suzan Boo APRN Active LEVAQUIN 500 MG TABS 1 daily for infection LEVOFLOXACIN 51632269406 No Longer Active Suzan Boo APRN Active TROPICAMIDE 0.5 % OPHTH SOLN 1 drop PRN eye spasms TROPICAMIDE 02296084676 No Longer Active Suzan Boo APRN Active PREDNISONE 20 MG TAB 1 tablet daily x 4 days PREDNISONE 87075352517 No Longer Active Suzan Boo APRN Active ACETAMINOPHEN-CODEINE 120-12 MG/5ML SOLN 5 ml by mouth every 4-6 hours if needed for cough ACETAMINOPHEN-CODEINE 64989140568 No Longer Active Suzan Boo APRN Active KEFLEX 500 MG CAP 1 po qid CEPHALEXIN 12994272606 No Longer Active Suzan Boo APRN Active FLOVENT HFA 110 MCG/ACT AERO 2 puffs inhaled b.i.d. FLUTICASONE PROPIONATE HFA 16150675360 Active Renzo Thornton DO Active RISPERDAL 4 MG ORAL TABS 1 tab at bedtime RISPERIDONE 96379119469 Active Samantha Rothman RMA Active ZOFRAN 4 MG TABS 1 po q6hr PRN Nausea ONDANSETRON HCL No Longer Active Suzan Boo APRN Active FLUTICASONE PROPIONATE 50 MCG/ACT SUSP 2 sprays each nostril daily before bed. FLUTICASONE PROPIONATE 62166599700 No Longer Active Suzan Boo APRN Active ASPIRIN 325 MG ORAL TABS 1 tab q.d ASPIRIN 39801019377 No Longer Active Suzan Boo APRN Active HALOPERIDOL 10 MG ORAL TABS 1 tab q.d HALOPERIDOL 73295742209 No Longer Active Suzan Boo APRN Active GUAIFENESIN-CODEINE 100-10 MG/5ML SYRP 5ml every 4 to 6 hours as needed for cough GUAIFENESIN-CODEINE 17933268400 No Longer Active Suzan Boo APRN Active ZITHROMAX Z-EARNEST 250 MG TABS 2 today and then 1 daily for 4 days AZITHROMYCIN 73580043099 No Longer Active Suzan Boo APRN Active CLONAZEPAM 1 MG ORAL TABS 1 twice a day and an additional 1 tablet every other day as needed for pseudoseizures or anxiety CLONAZEPAM 05573535421 Active Ahmet Carbajal MD Active HYDROCODONE-ACETAMINOPHEN 5-325 MG ORAL TABS 1 tab two times a day HYDROCODONE-ACETAMINOPHEN 94895207660 No Longer Active Ahmet Carbajal MD Active LAMICTAL 100 MG ORAL TABS 1 tab 2 times qd. LAMOTRIGINE 93900921246 Active Ahmet Carbajal MD Active PREDNISONE 20 MG TABS 2 daily for 5 days then 1 daily for 5 days PREDNISONE 13902565618 No Longer Active Ahmet Carbajal MD Active FLUTICASONE PROPIONATE 50 MCG/ACT SUSP 1 to 2 sprays each nostril daily for allergies FLUTICASONE PROPIONATE 34893798187 Active Tila Valenzuela Active BENADRYL 25 MG CAP 4 po at bedtime for insomnia DIPHENHYDRAMINE HCL 70028176523 No Longer Active Ahmet Carbajal MD Active ADVAIR DISKUS 250-50 MCG/DOSE INH AEPB 1 puff twice a day for asthma FLUTICASONE-SALMETEROL 09416598185 No Longer Active Ahmet Carbajal MD Active KLONOPIN 1 MG ORAL TABS 1 tab po TID CLONAZEPAM 21673044272 No Longer Active Ahmet Carbajal MD Active ABILIFY MAINTENA 400 MG IM SUSR 400mg injection every 26 days ARIPIPRAZOLE 70132766286 No Longer Active Ahmet Carbajal MD Active TRAMADOL HCL 50 MG TABS 1/2-1 tab TID PRN TRAMADOL HCL 80693099322 No Longer Active Ahmet Carbajal MD Active BACTRIM DS 800-160 MG TABS 1 twice a day SULFAMETHOXAZOLE- TRIMETHOPRIM 29646935675 No Longer Active Ahmet Carbajal MD Active PROAIR HFA 108 (90 BASE) MCG/ACT AERS 2 puffs four times a day as needed 2015 ALBUTEROL SULFATE 26357662788 Active Ahmet Carbajal MD Active MONISTAT 7 COMBO PACK WOODROW 100 & 2 MG-% (9GM) VAG KIT 1 applicatorful per vagina q pm x 7 MICONAZOLE NITRATE 32499598337 No Longer Active Ahmet Carbajal MD Active FLAGYL 500 MG TAB 1 tablet by mouth bid METRONIDAZOLE 24840868042 No Longer Active Ahmet Carbajal MD Active OXYCODONE HCL ER 10 MG ORAL T12A 1/2 tab by mouth every 4 hours prn OXYCODONE HCL 38523687951 No Longer Active Ahmet Carbajal MD Active METHYLPREDNISOLONE 4 MG ORAL TABS po daily METHYLPREDNISOLONE 27778137865 No Longer Active Ahmet Carbajal MD Active LEVOFLOXACIN 500 MG ORAL TABS po daily LEVOFLOXACIN 70616613949 No Longer Active Ahmet Carbajal MD Active VIIBRYD 10 MG ORAL TABS Take 1 tablet once a day VILAZODONE HCL 94912458857 No Longer Active Ahmet Carbajal MD Active TOPAMAX 50 MG ORAL TABS 1 tab twice daily TOPIRAMATE 28733337695 No Longer Active Ahmet Carbajal MD Active DICLOFENAC SODIUM 50 MG TBEC 1 tablet by mouth four times daily PRN Pain 2015 DICLOFENAC SODIUM 66277397738 No Longer Active Ahmet Carbajal MD Active ADZENYS XR-ODT 6.3 MG ORAL TBED 1 tab po daily for ADHD AMPHETAMINE 58532197987 No Longer Active Ahmet Carbajal MD Active CHANTIX 1 MG TABS 1 twice a day to help quit smoking VARENICLINE TARTRATE 87378821635 No Longer Active Dipika Burgos MD Active CHANTIX STARTING MONTH EARNEST 0.5 MG X 11 & 1 MG X 42 TABS take as directed 2015 VARENICLINE TARTRATE 03282358726 No Longer Active Dipika Burgos MD Active TESSALON PERLES 100 MG CAP 1 to 2 tablets by mouth 3 times daily as needed for cough BENZONATATE 70973048419 No Longer Active Luigi Martínez APRN Active IMITREX 50 MG ORAL TABS 0.5 po x 1 PRN Headache. May repeat dose x 1 in 2 hours if needed SUMATRIPTAN SUCCINATE 91557436304 Active Ahmet Carbajal MD Active HYDROCODONE-ACETAMINOPHEN 5-325 MG TABS 1 to 2 four times a day as needed for pain use until can be seen by specialist HYDROCODONE- ACETAMINOPHEN 58966078458 No Longer Active Vishal Hui MD Active PROAIR HFA 108 (90 BASE) MCG/ACT AERS 2 puffs four times a day as needed 2015 ALBUTEROL SULFATE 05850664311 No Longer Active Vishal Hui MD Active PREDNISONE 20 MG TABS 2 daily for 5 days then 1 daily for 5 days PREDNISONE 56275122930 No Longer Active Vishal Hui MD Active ZITHROMAX Z-EARNEST 250 MG TABS 2 today and then 1 daily for 4 days AZITHROMYCIN 35634126573 No Longer Active Vishal Hui MD Active DICLOFENAC POTASSIUM TABS Take 1 tablet twice a day (pt. is not sure of the dose.) DICLOFENAC POTASSIUM TABS 44002056994 No Longer Active Vishal Hui MD Active VERAPAMIL HCL ER 120 MG ORAL CR-TABS Take 1 tablet by mouth twice a day. VERAPAMIL HCL 02988336735 Active Vishal Hui MD Active FLAGYL 500 MG TAB 1 tablet by mouth bid METRONIDAZOLE 16860899564 No Longer Active Vishal Hui MD Active VALIUM 5 MG TAB Take 1-2 tablets daily DIAZEPAM 41575757532 No Longer Active Fabiola Johnson APRN Active METOPROLOL TARTRATE 25 MG ORAL TABS 1/2 tablet twice daily for heart rate and blood pressure METOPROLOL TARTRATE 40846126727 No Longer Active Fabiola Johnson APRN Active MIRALAX ORAL POWD 17GMS DAILY IN WATER POLYETHYLENE GLYCOL 3350 47315296346 Active TAMARA Casey Active MIRALAX PACK 1 po qd PRN Constipation POLYETHYLENE GLYCOL 3350 33391477696 No Longer Active Ahmet Carbajal MD Active MINIPRESS 2 MG CAPS 4 cap po at night PRAZOSIN HCL 57277785317 No Longer Active Ahmet Carbajal MD Active PIROXICAM 20 MG CAPS 1 cap po qd PRN Pain PIROXICAM 01411975326 No Longer Active Ahmet Carbajal MD Active TRAMADOL HCL 50 MG TABS 1-2 po TID PRN Pain TRAMADOL HCL 80941424657 No Longer Active Ahmet Carbajal MD Active METOPROLOL TARTRATE 50 MG TAB 1 po bid METOPROLOL TARTRATE 81478443365 No Longer Active Ahmet Carbajal MD Active ABILIFY 15 MG ORAL TABS 1 tab daily ARIPIPRAZOLE 90356207826 No Longer Active Ahmet Carbajal MD Active PROZAC 20 MG ORAL CAPS 1 tab daily FLUOXETINE HCL 12520130166 No Longer Active Ahmet Carbajal MD Active AMBIEN 5 MG ORAL TABS 1 tab at bedtime ZOLPIDEM TARTRATE 87873762736 No Longer Active Ahmet Carbajal MD Active PREDNISONE 20 MG TAB 2 tabs daily for 4 days, 1 tab daily for 4 days, 1/2 tab daily for 4 days PREDNISONE 76085453979 No Longer Active Ahmet Carbajal MD Active KEFLEX 500 MG CAP 1 po TID x 10 days CEPHALEXIN 86802943839 No Longer Active Vishal Hui MD Active SAPHRIS 5 MG SUBL 1 po bid ASENAPINE MALEATE 80465944357 No Longer Active Jillina Fralebron BAKER PAINT Active LATUDA 80 MG TABS Take one by mouth daily LURASIDONE HCL 92043876695 No Longer Active Jillina Frazell BAKER PAINT Active AMLODIPINE BESYLATE 5 MG TABS 1 tablet by mouth daily AMLODIPINE BESYLATE 18885919472 No Longer Active Jillina Mauricio BAKER PAINT Active AMITRIPTYLINE HCL 100 MG TAB one at hs AMITRIPTYLINE HCL 03702661179 No Longer Active Vishal Hui MD Active TRAZODONE HCL 100 MG TAB take 1 at bedtime TRAZODONE HCL 02726507164 No Longer Active Vishal Hui MD Active VYVANSE 40 MG CAPS 1 daily, LISDEXAMFETAMINE DIMESYLATE 14035355585 No Longer Active Vishal Hui MD Active IBUPROFEN 600 MG TAB 1 po TID PRN IBUPROFEN 24162014135 No Longer Active Vishal Hui MD Active PROZAC 20 MG CAP Take one by mouth daily FLUOXETINE HCL 67643909215 No Longer Active Vishal Hui MD Active BACTRIM DS 800-160 MG TABS 1 pill by mouth twice daily SULFAMETHOXAZOLE-TRIMETHOPRIM 32194373306 No Longer Active Sahara Rodriguez MD PhD Active DIFLUCAN 150 MG TAB 1 tablet by mouth daily FLUCONAZOLE 80670678909 No Longer Active Vishal Hui MD Active TIZANIDINE HCL 4 MG TABS 1 po q6hr PRN Muscle Spasm/Back Pain TIZANIDINE HCL 37488896122 Active Vishal Hui MD Active CLINDAMYCIN HCL 150 MG CAPS 1 four times a day CLINDAMYCIN HCL 52802223134 No Longer Active Neeraj Collins MD Active KEFLEX 500 MG ORAL CAPS 1 cap QID by mouth CEPHALEXIN 49984704661 No Longer Active Neeraj Collins MD Active DIFLUCAN 150 MG TABS 1 pill every other day x 2 doses FLUCONAZOLE 00916810588 No Longer Active Sahara Rodriguez MD PhD Active MELATONIN 3 MG CAPS 2 po q hs MELATONIN 68927744593 No Longer Active Sahara Rodriguez MD PhD Active MULTIVITAMINS CAPS Take one by mouth daily MULTIPLE VITAMIN 85788185326 No Longer Active Sahara Rodriguez MD PhD Active BACTRIM DS 800-160 MG TAB 1 tab by mouth twice daily TRIMETHOPRIM-SULFAMETHOXAZOLE 83654247811 No Longer Active Sahara Rodriguez MD PhD Active [facility] PROBIOTIC ORAL CHEW 2 daily po PROBIOTIC PRODUCT 37273447282 No Longer Active Sahara Rodriguez MD PhD Active BACTRIM DS 800-160 MG TABS 1 po BID x 7 days SULFAMETHOXAZOLE-TRIMETHOPRIM 20070054783 No Longer Active Vishal Hui MD Active CHANTIX STARTING MONTH EARNEST 0.5 MG X 11 & 1 MG X 42 TABS 0.5mg daily for 3 days , then 0.5mg BID for 4 days, then 1mg BID VARENICLINE TARTRATE 94715313729 No Longer Active TAMARA Gray Active VERAPAMIL HCL CR 120 MG TAB CR 1 po bid VERAPAMIL HCL 20652683530 No Longer Active Vishal Hui MD Active METOPROLOL SUCCINATE 50 MG TB24 1 tablet by mouth daily METOPROLOL SUCCINATE 02426281421 No Longer Active Vishal Hui MD Active SAPHRIS 10 MG SUBL 1 tab po bid ASENAPINE MALEATE 33576647918 No Longer Active Vishal Hui MD Active LISINOPRIL 20 MG TABS 1 tab po qd LISINOPRIL 22151960378 No Longer Active Vishal Hui MD Active LATUDA 20 MG TABS Take one by mouth daily LURASIDONE HCL 33316527295 No Longer Active Vishal Hui MD Active TRAZODONE HCL 50 MG TABS 1/2 tab po qd prn for anxiety TRAZODONE HCL 59016808511 No Longer Active Vishal Hui MD Active OMEPRAZOLE 20 MG TBEC 1 po q a.m. 30min prior to first food intake OMEPRAZOLE 79012731556 Active TAMARA Casey Active RANITIDINE HCL 150 MG CAPS 1 twice a day RANITIDINE HCL 26226123857 Active Jillina Frazell BAKER PAINT Active LINZESS 290 MCG CAPS Take one by mouth daily LINACLOTIDE 13882152093 No Longer Active Vishal Hui MD Active SAPHRIS 5 MG SUBL 1 tab po qd ASENAPINE MALEATE 88666427044 No Longer Active Vishal Hui MD Active ZALEPLON 10 MG CAPS 1 cap po every other night ZALEPLON 56087054063 No Longer Active Vishal Hui MD Active LYRICA 50 MG CAPS 1 tab po TID PREGABALIN 62510051007 No Longer Active Vishal Hui MD Active LORATADINE 10 MG TABS 1 tab po qd LORATADINE 11334184009 No Longer Active Vishal Hui MD Active VERAPAMIL HCL ER 180 MG CR-TABS 1 tab po bid VERAPAMIL HCL 33672841412 No Longer Active Vishal Hui MD Active MIRALAX POWD 1 capfull once daily POLYETHYLENE GLYCOL 3350 34700805935 No Longer Active Vishal Hui MD Active PREDNISONE 20 MG TABS 1 tab po qd PREDNISONE 14290058860 No Longer Active Renzo Thornton DO Active LEVOFLOXACIN 500 MG TABS 1 tab po qd LEVOFLOXACIN 23732388005 No Longer Active Renzo Thornton DO Active BUSPIRONE HCL 15 MG TABS 1 tab po TID BUSPIRONE HCL 48520862743 No Longer Active Renzo Thornton DO Active BENZTROPINE MESYLATE 1 MG TABS 1 tab po qd BENZTROPINE MESYLATE 83819954652 No Longer Active Renzo Thornton DO Active ATENOLOL 25 MG TABS 1 tab po qd ATENOLOL 02233380654 No Longer Active Renzo Thornton DO Active ESCITALOPRAM OXALATE 20 MG TABS 1 tab po qd ESCITALOPRAM OXALATE 78180549624 No Longer Active Renzo Thornton DO Active ADVAIR DISKUS 250-50 MCG/DOSE AEPB 1 puff BID FLUTICASONE-SALMETEROL 66260746077 No Longer Active Renzo Thornton DO Active PREDNISONE 20 MG TAB 2 tabs daily for 3 days, 1 tab daily for 3 days, 1/2 tab daily for 2 days PREDNISONE 83724815379 No Longer Active Vishal Hui MD Active CEFDINIR 300 MG CAPS by mouth twice a day CEFDINIR 62908236720 No Longer Active Vishal Hui MD Active LANSOPRAZOLE 30 MG CPDR 1 cap po qd LANSOPRAZOLE 03817633719 No Longer Active Vishal Hui MD Active BACLOFEN 20 MG TABS 1 tab po tid BACLOFEN 10545257284 No Longer Active Vishal Hui MD Active ADVAIR DISKUS 250-50 MCG/DOSE AEPB 1 puff BID ADVAIR DISKUS 250-50 MCG/DOSE AEPB FLUTICASONE-SALMETEROL Inactive ESCITALOPRAM OXALATE 20 MG TABS 1 tab po qd ESCITALOPRAM OXALATE 20 MG TABS 759404 ESCITALOPRAM OXALATE Inactive ATENOLOL 25 MG TABS 1 tab po qd ATENOLOL 25 MG TABS 162530 ATENOLOL Inactive BENZTROPINE MESYLATE 1 MG TABS 1 tab po qd BENZTROPINE MESYLATE 1 MG TABS 943010 BENZTROPINE MESYLATE Inactive BUSPIRONE HCL 15 MG TABS 1 tab po TID BUSPIRONE HCL 15 MG TABS 968599 BUSPIRONE HCL Inactive LEVOFLOXACIN 500 MG TABS 1 tab po qd LEVOFLOXACIN 500 MG TABS 020339 LEVOFLOXACIN Inactive PREDNISONE 20 MG TABS 1 tab po qd PREDNISONE 20 MG TABS 369473 PREDNISONE Inactive MIRALAX POWD 1 capfull once daily MIRALAX POWD 260829 POLYETHYLENE GLYCOL 3350 Inactive VERAPAMIL HCL ER 180 MG CR-TABS 1 tab po bid VERAPAMIL HCL ER 180 MG CR-TABS VERAPAMIL HCL Inactive LORATADINE 10 MG TABS 1 tab po qd LORATADINE 10 MG TABS 496119 LORATADINE Inactive LYRICA 50 MG CAPS 1 tab po TID LYRICA 50 MG CAPS PREGABALIN Inactive ZALEPLON 10 MG CAPS 1 cap po every other night ZALEPLON 10 MG CAPS 144159 ZALEPLON Inactive SAPHRIS 5 MG SUBL 1 tab po qd SAPHRIS 5 MG SUBL ASENAPINE MALEATE Inactive TRAZODONE HCL 50 MG TABS 1/2 tab po qd prn for anxiety TRAZODONE HCL 50 MG TABS 597623 TRAZODONE HCL Inactive LATUDA 20 MG TABS Take one by mouth daily LATUDA 20 MG TABS LURASIDONE HCL Inactive LISINOPRIL 20 MG TABS 1 tab po qd LISINOPRIL 20 MG TABS 466478 LISINOPRIL Inactive SAPHRIS 10 MG SUBL 1 [...] twice daily BACTRIM DS 800-160 MG TAB 721953 TRIMETHOPRIM-SULFAMETHOXAZOLE Inactive MULTIVITAMINS CAPS Take one by mouth daily MULTIVITAMINS CAPS MULTIPLE VITAMIN Inactive MELATONIN 3 MG CAPS 2 po q hs MELATONIN 3 MG CAPS 672652 MELATONIN Inactive KEFLEX 500 MG ORAL CAPS 1 cap QID by mouth KEFLEX 500 MG ORAL CAPS 247762 CEPHALEXIN Inactive CLINDAMYCIN HCL 150 MG CAPS 1 four times a day CLINDAMYCIN HCL 150 MG CAPS 935408 CLINDAMYCIN HCL Inactive DIFLUCAN 150 MG TAB 1 tablet by mouth daily DIFLUCAN 150 MG TAB 544523 FLUCONAZOLE Inactive PROZAC 20 MG CAP Take one by mouth daily PROZAC 20 MG CAP 670884 FLUOXETINE HCL Inactive IBUPROFEN 600 MG TAB 1 po TID PRN IBUPROFEN 600 MG TAB 843825 IBUPROFEN Inactive VYVANSE 40 MG CAPS 1 daily, VYVANSE 40 MG CAPS LISDEXAMFETAMINE DIMESYLATE Inactive TRAZODONE HCL 100 MG TAB take 1 at bedtime TRAZODONE HCL 100 MG TAB 361438 TRAZODONE HCL Inactive AMITRIPTYLINE HCL 100 MG TAB one at hs AMITRIPTYLINE HCL 100 MG TAB 947073 AMITRIPTYLINE HCL Inactive AMLODIPINE BESYLATE 5 MG TABS 1 tablet by mouth daily AMLODIPINE BESYLATE 5 MG TABS 644883 AMLODIPINE BESYLATE Inactive LATUDA 80 MG TABS Take one by mouth daily LATUDA 80 MG TABS LURASIDONE HCL Inactive SAPHRIS 5 MG SUBL 1 po bid SAPHRIS 5 MG SUBL ASENAPINE MALEATE Inactive PREDNISONE 20 MG TAB 2 tabs daily for 4 days, 1 tab daily for 4 days, 1/2 tab daily for 4 days PREDNISONE 20 MG TAB 554765 PREDNISONE Inactive AMBIEN 5 MG ORAL TABS 1 tab at bedtime AMBIEN 5 MG ORAL TABS 515397 ZOLPIDEM TARTRATE Inactive PROZAC 20 MG ORAL CAPS 1 tab daily PROZAC 20 MG ORAL CAPS 624206 FLUOXETINE HCL Inactive ABILIFY 15 MG ORAL TABS 1 tab daily ABILIFY 15 MG ORAL TABS 545832 ARIPIPRAZOLE Inactive METOPROLOL TARTRATE 50 MG TAB 1 po bid METOPROLOL TARTRATE 50 MG TAB 200162 METOPROLOL TARTRATE Inactive TRAMADOL HCL 50 MG TABS 1-2 po TID PRN Pain TRAMADOL HCL 50 MG TABS 913533 TRAMADOL HCL Inactive PIROXICAM 20 MG CAPS 1 cap po qd PRN Pain PIROXICAM 20 MG CAPS 321315 PIROXICAM Inactive MINIPRESS 2 MG CAPS 4 cap po at night MINIPRESS 2 MG CAPS 405589 PRAZOSIN HCL Inactive MIRALAX PACK 1 po qd PRN Constipation MIRALAX PACK 574098 POLYETHYLENE GLYCOL 3350 Inactive METOPROLOL TARTRATE 25 MG ORAL TABS 1/2 tablet twice daily for heart rate and blood pressure METOPROLOL TARTRATE 25 MG ORAL TABS 047475 METOPROLOL TARTRATE Inactive VALIUM 5 MG TAB Take 1-2 tablets daily VALIUM 5 MG TAB 750146 DIAZEPAM Inactive FLAGYL 500 MG TAB 1 tablet by mouth bid FLAGYL 500 MG TAB 044044 METRONIDAZOLE Inactive DICLOFENAC POTASSIUM TABS Take 1 tablet twice a day (pt. is not sure of the dose.) DICLOFENAC POTASSIUM TABS DICLOFENAC POTASSIUM TABS Inactive ZITHROMAX Z-EARNEST 250 MG TABS 2 today and then 1 daily for 4 days ZITHROMAX Z-EARNEST 250 MG TABS 9517888 AZITHROMYCIN Inactive PREDNISONE 20 MG TABS 2 daily for 5 days then 1 daily for 5 days PREDNISONE 20 MG TABS 911084 PREDNISONE Inactive PROAIR HFA 108 (90 BASE) MCG/ACT AERS 2 puffs four times a day as needed 2015 PROAIR HFA 108 (90 BASE) MCG/ACT AERS ALBUTEROL SULFATE Inactive HYDROCODONE-ACETAMINOPHEN 5-325 MG TABS 1 to 2 four times a day as needed for pain use until can be seen by specialist HYDROCODONE- ACETAMINOPHEN 5-325 MG TABS 262720 HYDROCODONE-ACETAMINOPHEN Inactive TESSALON PERLES 100 MG CAP 1 to 2 tablets by mouth 3 times daily as needed for cough TESSALON PERLES 100 MG CAP 253478 BENZONATATE Inactive CHANTIX STARTING MONTH EARNEST 0.5 [...] Pain 2015 DICLOFENAC SODIUM 50 MG TBEC 965214 DICLOFENAC SODIUM Inactive TOPAMAX 50 MG ORAL TABS 1 tab twice daily TOPAMAX 50 MG ORAL TABS 685816 TOPIRAMATE Inactive VIIBRYD 10 MG ORAL TABS Take 1 tablet once a day VIIBRYD 10 MG ORAL TABS VILAZODONE HCL Inactive LEVOFLOXACIN 500 MG ORAL TABS po daily LEVOFLOXACIN 500 MG ORAL TABS 189120 LEVOFLOXACIN Inactive METHYLPREDNISOLONE 4 MG ORAL TABS po daily METHYLPREDNISOLONE 4 MG ORAL TABS 048569 METHYLPREDNISOLONE Inactive OXYCODONE HCL ER 10 MG ORAL T12A 1/2 tab by mouth every 4 hours prn OXYCODONE HCL ER 10 MG ORAL T12A OXYCODONE HCL Inactive FLAGYL 500 MG TAB 1 tablet by mouth bid FLAGYL 500 MG TAB 172157 METRONIDAZOLE Inactive MONISTAT 7 COMBO PACK WOODROW 100 & 2 MG-% (9GM) VAG KIT 1 applicatorful per vagina q pm x 7 MONISTAT 7 COMBO PACK WOODROW 100 & 2 MG-% (9GM) VAG KIT MICONAZOLE NITRATE Inactive BACTRIM DS 800-160 MG TABS 1 twice a day BACTRIM DS 800-160 MG TABS 228907 SULFAMETHOXAZOLE-TRIMETHOPRIM Inactive TRAMADOL HCL 50 MG TABS 1/2-1 tab TID PRN TRAMADOL HCL 50 MG TABS 979683 TRAMADOL HCL Inactive ABILIFY MAINTENA 400 MG IM SUSR 400mg injection every 26 days ABILIFY MAINTENA 400 MG IM SUSR ARIPIPRAZOLE Inactive KLONOPIN 1 MG ORAL TABS 1 tab po TID KLONOPIN 1 MG ORAL TABS 533728 CLONAZEPAM Inactive ADVAIR DISKUS 250-50 MCG/DOSE INH AEPB 1 puff twice a day for asthma ADVAIR DISKUS 250-50 MCG/DOSE INH AEPB FLUTICASONE- SALMETEROL Inactive BENADRYL 25 MG CAP 4 po at bedtime for insomnia BENADRYL 25 MG CAP DIPHENHYDRAMINE HCL Inactive PREDNISONE 20 MG TABS 2 daily for 5 days then 1 daily for 5 days PREDNISONE 20 MG TABS 174761 PREDNISONE Inactive HYDROCODONE-ACETAMINOPHEN 5-325 MG ORAL TABS 1 tab two times a day HYDROCODONE-ACETAMINOPHEN 5-325 MG ORAL TABS 201391 HYDROCODONE-ACETAMINOPHEN Inactive ZITHROMAX Z-EARNEST 250 MG TABS 2 today and then 1 daily for 4 days ZITHROMAX Z-EARNEST 250 MG TABS 6862844 AZITHROMYCIN Inactive GUAIFENESIN-CODEINE 100-10 MG/5ML SYRP 5ml every 4 to 6 hours as needed for cough GUAIFENESIN-CODEINE 100-10 MG/5ML SYRP 356810 GUAIFENESIN-CODEINE Inactive HALOPERIDOL 10 MG ORAL TABS 1 tab q.d HALOPERIDOL 10 MG ORAL TABS 145254 HALOPERIDOL Inactive ASPIRIN 325 MG ORAL TABS 1 tab q.d ASPIRIN 325 MG ORAL TABS 687413 ASPIRIN Inactive FLUTICASONE PROPIONATE 50 MCG/ACT SUSP 2 sprays each nostril daily before bed. FLUTICASONE PROPIONATE 50 MCG/ACT SUSP 5323355 FLUTICASONE PROPIONATE Inactive ZOFRAN 4 MG TABS 1 po q6hr PRN Nausea ZOFRAN 4 MG TABS 629029 ONDANSETRON HCL Inactive KEFLEX 500 MG CAP 1 po qid KEFLEX 500 MG CAP 186800 CEPHALEXIN Inactive ACETAMINOPHEN-CODEINE 120-12 MG/5ML SOLN 5 ml by mouth every 4-6 hours if needed for cough ACETAMINOPHEN-CODEINE 120-12 MG/5ML SOLN 605975 ACETAMINOPHEN-CODEINE Inactive PREDNISONE 20 MG TAB 1 tablet daily x 4 days PREDNISONE 20 MG TAB 683934 PREDNISONE Inactive TROPICAMIDE 0.5 % OPHTH SOLN 1 drop PRN eye spasms TROPICAMIDE 0.5 % [facility] 401365 TROPICAMIDE Inactive LEVAQUIN 500 MG TABS 1 daily for infection LEVAQUIN 500 MG TABS 602037 LEVOFLOXACIN Inactive PREDNISONE 10 MG TABS 2 daily for 5 days then 1 daily for 5 days PREDNISONE 10 MG TABS 342881 PREDNISONE Inactive EQ NICOTINE 21 MG/24HR TRANS [...] for cough TESSALON PERLES 100 MG CAPS 903637 BENZONATATE Inactive CEFDINIR 300 MG CAPS by mouth twice a day CEFDINIR 300 MG CAPS 146521 CEFDINIR Inactive PREDNISONE 20 MG TAB 2 tabs daily for 3 days, 1 tab daily for 3 days, 1/2 tab daily for 2 days PREDNISONE 20 MG TAB 937208 PREDNISONE Inactive BACTRIM DS 800-160 MG TABS 1 po BID x 7 days BACTRIM DS 800-160 MG TABS 004115 SULFAMETHOXAZOLE-TRIMETHOPRIM Inactive DIFLUCAN 150 MG TABS 1 pill every other day x 2 doses DIFLUCAN 150 MG TABS 19751126 FLUCONAZOLE Inactive BACTRIM DS 800-160 MG TABS 1 pill by mouth twice daily BACTRIM DS 800-160 MG TABS 259974 SULFAMETHOXAZOLE-TRIMETHOPRIM Inactive KEFLEX 500 MG CAP 1 po TID x 10 days KEFLEX 500 MG CAP 520671 CEPHALEXIN Inactive Advance Directives Directive Description Start [...] % 11.0-15.0 platelet count 443 THOUSAND/UL 10*3/mm3 995-517 2941/03/01 mean platelet volume 8.2 fL 7.5-12.5 leukocyte [...] % 11.0-15.0 platelet count 349 THOUSAND/UL 10*3/mm3 716-264 6913/04/12 mean platelet volume 8.4 fL 7.5-12.5 Lab [...] 369 10^3/MM^3 10*3/mm3 142-424 Lab Report: Chlamydia/GC APTIMA/[id number] - Lab chlamydia DNA probe NOT DETECTED NOT DETECTED Lab Report: Chlamydia/GC APTIMA/[id number] - Microbiology Neisseria gonorrhoeae DNA probe NOT DETECTED NOT DETECTED Lab Report: Chlamydia/GC APTIMA/[id number], Urinalysis, Complete, with Reflex ... - Lab chlamydia DNA probe NOT DETECTED NOT DETECTED Lab Report: Chlamydia/GC APTIMA/[id number], Urinalysis, Complete, with Reflex ... - Microbiology Neisseria gonorrhoeae DNA probe NOT DETECTED NOT DETECTED Lab Report: Chlamydia/GC APTIMA/[id number], Urinalysis, Complete, with Reflex ... - Urinalysis microalbumin/total urine volume 2 mg/L Units converted. See lab report for original value. microalbumin/creatinine ratio, urine 9 MCG/MG CREAT mg/L <30 Lab Report: Comp. Metabolic Panel - Chemistry sodium, serum 142 mmol/L 516-595 2351/06/08 carbon dioxide, venous blood 27.6 mmol/L 21.0-32.0 potassium, serum 4.0 mmol/L 3.5-5.2 chloride, serum 105 mmol/L 98-107 blood glucose 95 mg/dL 65-110 urea nitrogen, blood 8 mg/dL 7-18 creatinine, serum 0.75 mg/dL 0.55-1.30 alanine aminotransferase (SGPT), serum 49 U/L 12-78 aspartate aminotransferase (SGOT), serum 28 U/L 15-37 calcium, serum 9.4 mg/dL 8.5-10.1 bilirubin, serum, total 0.30 mg/dL 0.00-1.00 sodium, serum 140 mmol/L 667-503 4464/08/08 carbon dioxide, venous blood 33.7 mmol/L 21.0-32.0 [...] mg/dL Encounters Code Encounter Date Provider Facility CPT-38324 Level 3 Est. Patient 10:00:25 CDT Suzan Boo [facility] CPT-41147 Level 3 Est. Patient 10:29:30 CDT Suzan Boo [facility] CPT-47288 Level 3 Est. Patient 11:04:38 CDT [facility] CPT-32050 Level 3 Est. Patient 11:15:58 BROKE WORKER [facility] CPT-96120 Level 3 Est. Patient 15:28:23 BROKE WORKER Suzan Boo [facility] CPT-10424 Level 4 Est. Patient 10:20:54 BROKE WORKER Suzan Boo [facility] CPT-11495 Level 3 Est. Patient 11:47:37 BROKE WORKER Ahmet Carbajal MD [facility] CPT-35837 Level 3 Est. Patient 10:40:11 BROKE WORKER Ahmet Carbajal MD [facility] CPT-28951 Level 3 Est. Patient 15:07:06 BROKE WORKER Neeraj Collins MD [facility] CPT-46816 Level 4 Est. Patient 14:45:00 BROKE WORKER Ahmet Carbajal MD [facility] CPT-04230 Level 3 Est. Patient 13:59:59 CDT Luigi Martínez [facility] CPT-82081 Level 3 Est. Patient 18:18:53 CDT Neeraj Collins MD [facility] CPT-26422 Level 3 Est. Patient 15:50:44 CDT Vishal Hui MD [facility] CPT-75998 Level 3 Est. Patient 11:36:17 CDT Ahmet Carbajal MD [facility] CPT-49863 Level 3 Est. Patient 13:29:16 CDT Vishal Hui MD [facility] CPT-82613 Level 3 Est. Patient 14:27:52 CDT Neeraj Collins MD [facility] CPT-53219 Level 3 Est. Patient 08:56:03 CDT Luigi Martínez [facility] CPT-67051 Level 4 Est. Patient 12:11:48 CDT Fabiola Johnson [facility] CPT-65163 Level 3 New Patient 16:53:37 CDT Albert Caldera MD [facility] CPT-49014 Level 3 Est. Patient 11:25:49 CDT Renzo Thornton DO [facility] CPT-09713 Level 3 Est. Patient 15:22:01 CDT Ahmet Carbajal MD [facility] CPT-87558 Level 4 Est. Patient 09:00:51 BROKE WORKER Vishal Hui MD [facility] CPT-42369 Level 3 Est. Patient 11:37:33 BROKE WORKER Vishal Hui MD [facility] CPT-36922 Level 3 Est. Patient 08:41:09 BROKE WORKER Vishal Hui MD [facility] CPT-32034 Level 4 Est. Patient 10:19:35 BROKE WORKER Vishal Hui MD [facility] CPT-57513 Level 3 Est. Patient 13:35:45 CDT Vishal Hui MD [facility] CPT-35248 Level 4 Est. Patient 10:08:37 CDT Vishal [id number] Level 3 Est. Patient 11:22:10 CDT Vishal Hui MD [facility] CPT-32922 Level 3 Est. Patient 11:03:32 CDT Sahara Rodriguez MD [facility]-76623 Level 3 Est. Patient 09:41:35 CDT Vishal Hui MD [facility]-07156 Level 3 Est. Patient 12:00:41 CDT Neeraj [id number] Level 3 Est. Patient 09:16:24 CDT Vishal Hui MD [facility] CPT-18366 Level 4 Est. Patient 13:59:09 CDT Neeraj Collins MD [facility] CPT-16323 Level 3 Est. Patient 15:19:43 CDT Renzo Thornton DO [facility] CPT-05253 Level 3 Est. Patient 18:10:26 CDT Shaara Rodriguez MD [facility]-60442 Level 3 Est. Patient 14:49:50 CDT Vishal Hui MD [id number] Level 4 Est. Patient 18:41:46 CDT Neeraj Collins MD [facility] CPT-21619 Level 4 Est. Patient 09:18:38 BROKE WORKER Vishal Hui MD [facility]-98468 Level 3 Est. Patient 14:43:55 BROKE WORKER Vishal Hui MD [facility] CPT-21554 Level 3 Est. Patient 15:26:33 BROKE WORKER Sahara Rodriguez MD [facility]-14684 Level 3 Est. Patient 10:32:14 BROKE WORKER Vishal Hui MD [facility] CPT-68122 Level 3 Est. Patient 15:12:52 BROKE WORKER Vishal Hui MD [facility] CPT-39965 Level 4 Est. Patient 09:19:27 CDT Vishal Hui MD [facility] CPT-51221 Level 3 Est. Patient 15:53:00 CDT [facility] CPT-06888 Level 3 Est. Patient 15:50:30 CDT [facility] CPT-93813 Level 3 Est. Patient 16:55:24 CDT Vishal Hui MD [facility] Procedures Code Procedure Name Date Entry Date Standard Description CPT-55321 Venipuncture Draw Fee 08:41:12 CDT CPT-99883 Abd compl w upright - XRAY USE ONLY 10:27:59 CDT 06/28 CPT-53946 Smoking Cessation counseling 11:15:58 BROKE WORKER CPT-G0439 [facility] Annual Wellness Exam 09:30:58 BROKE WORKER CPT-79525 TSH - LAB USE ONLY 08:50:26 BROKE WORKER CPT-26571 CBC - LAB USE ONLY 08:50:26 BROKE WORKER CPT-82638 Venipuncture Draw Fee 08:50:26 BROKE WORKER CPT-11012 Abx/Therapy Injection 17:34:30 BROKE WORKER CPT-56495 Nexplanon Removal with Reinsertion 14:09:32 CDT CPT-J7307 Nexplanon (Implant) 14:09:32 CDT CPT-OV Office Visit 14:09:32 CDT CPT-57997 UA w micro - LAB USE ONLY 16:21:13 CDT CPT-29852 [place] Mount - LAB USE ONLY 16:21:13 CDT CPT-99084 First Vx - Ix admin for Medicare patients 14:37:47 CDT CPT-87448 Fluzone Preservative Free Intramuscular Suspension 14:37 :47 CDT CPT-34094 Abx/Therapy Injection 13:54:22 CDT CPT-67068 Abx/Therapy Injection 08:47:09 CDT CPT-21970 Abx/Therapy Injection 13:29:56 CDT CPT-13669 Abx/Therapy Injection 08:36:16 CDT CPT-18631 [place] - LAB USE ONLY 17:44:58 CDT CPT-09571 UA w micro - LAB USE ONLY 17:44:58 CDT CPT-08278 CMP - LAB USE ONLY 17:44:58 CDT CPT-44342 Venipuncture Draw Fee 17:44:58 CDT CPT-93300 Cervical Min 4V - XRAY USE ONLY 09:01:40 CDT CPT-78998 Chest 2V Frontal and Lat - XRAY USE ONLY 11:06:31 CDT CPT-75460 EKG Trac and Interp - XRAY USE ONLY 11:31:43 CDT 08/26 CPT-J3420 Vitamin B12 1000mcg (Cyanocobalamin) 08:10:26 BROKE WORKER 04/12 CPT-28584 Abx/Therapy Injection 08:10:26 BROKE WORKER CPT-G0438 Initial Annual Wellness Exam 19:01:01 BROKE WORKER CPT-J3420 Vitamin B12 1000mcg (Cyanocobalamin) 16:57:46 CDT 08/14 CPT-62440 Recombivax HB Injection Suspension 5 MCG/0.5ML 08:37:50 BROKE WORKER CPT-00400 Immunization Single Admin 08:37:50 BROKE WORKER CPT-J3420 Vitamin B12 1000mcg (Cyanocobalamin) 08:32:16 BROKE WORKER 03/11 CPT-90037 Abx/Therapy Injection 08:32:16 BROKE WORKER CPT-82944 Chest 2V Frontal and Lat 11:46:38 BROKE WORKER CPT-83724 Venipuncture Draw Fee 09:12:45 BROKE WORKER CPT-J3420 Vitamin B12 1000mcg (Cyanocobalamin) 08:50:15 BROKE WORKER 02/08 CPT-13568 Abx/Therapy Injection 08:50:15 BROKE WORKER CPT-Cryo Cryotherapy 10:19:35 BROKE WORKER CPT-000 Give Appropriate Flu Vaccine 09:22:16 CDT CPT-J3420 Vitamin B12 1000mcg (Cyanocobalamin) 19:08:57 CDT 01/11 CPT-96725 Abx/Therapy Injection 19:08:57 CDT CPT-J3420 Vitamin B12 1000mcg (Cyanocobalamin) 08:19:08 CDT 12/11 CPT-98773 Abx/Therapy Injection 08:19:08 CDT CPT-J3420 Vitamin B12 1000mcg (Cyanocobalamin) 14:48:00 CDT 11/09 CPT-61532 Abx/Therapy Injection 14:47:59 CDT CPT-J3420 Vitamin B12 1000mcg (Cyanocobalamin) 08:34:04 CDT 10/09 CPT-94311 Abx/Therapy Injection 08:34:04 CDT CPT-J3420 Vitamin B12 1000mcg (Cyanocobalamin) 09:18:52 CDT 09/11 CPT-96320 Abx/Therapy Injection 09:18:52 CDT CPT-J3420 Vitamin B12 1000mcg (Cyanocobalamin) 08:35:44 CDT 09/04 CPT-51043 Abx/Therapy Injection 08:35:44 CDT CPT-26455 Immunization Single Admin 11:07:16 CDT CPT-08929 Hepatitis B adult IM 11:07:16 CDT CPT-J3420 Vitamin B12 1000mcg (Cyanocobalamin) 11:00:49 CDT 08/28 CPT-J1040 Depo Medrol 80 mg (Methyl Prednisolone Acetate) 11:00: 49 CDT CPT-69391 Abx/Therapy Injection 11:00:49 CDT CPT-J1040 Depo Medrol 80 mg (Methyl Prednisolone Acetate) 09:16: 23 CDT CPT-J3420 Vitamin B12 1000mcg (Cyanocobalamin) 08:27:05 CDT 08/20 CPT-50975 Abx/Therapy Injection 08:27:05 CDT CPT-01599 Recombivax HB Injection Suspension 5 MCG/0.5ML 10:00:41 CDT CPT-59988 Administration single or combination vaccine inc oral 10 :00:41 CDT CPT-15570 Sono transvag pelvis non OB uterus ovaries cervix 16:36: 57 CDT CPT-93565 LS spine comp w obliq 09:50:55 BROKE WORKER CPT-86693 Abd compl w upright 09:50:55 BROKE WORKER CPT-J1100 Decadron 4mg (Dexamethasone) 15:51:24 BROKE WORKER CPT-J1030 Depo Medrol 40 mg (Methyl Prednisolone Acetate) 15:51: 24 BROKE WORKER CPT-58871 Abx/Therapy Injection 15:51:24 BROKE WORKER CPT-J1100 Decadron 4mg (Dexamethasone) 15:26:33 BROKE WORKER CPT-J1030 Depo Medrol 40 mg (Methyl Prednisolone Acetate) 15:26: 33 BROKE WORKER CPT-47342 Sono retroperitoneal complete kidneys and bladder 17:15: 30 CDT CPT-37637 Abd compl w upright 16:09:25 CDT CPT-J1100 Decadron 8mg (Dexamethasone) 17:07:57 CDT CPT-81411 Abx/Therapy Injection 17:07:57 CDT CPT-J1100 Decadron 8mg (Dexamethasone) 16:55:24 CDT CPT-50890 Chest 2V Frontal and Lat 16:32:44 CDT
--- OUTSIDE RECORDS SUMMARY | 2016-11-04 18:21 | XMS REPORT | Clinical Summary ---
Author Author Admin, [facility] Organization [facility] Address Unknown Phone Unavailable Allergies, Adverse Reactions, [...] Vishal Hui MD AMOXICILLIN Critical Active Vishal uHi MD Conditions or Problems Problem Name Problem [...] Shortness of breath 786.05 Active Fabiola Johnson METAL TANK ERECTOR Shortness of breath Nocturnal hypoxia 799.02 Active Fabiola Johnson METAL TANK ERECTOR Hypoxemia Neck pain 723.1 Active Luigi Martínez METAL TANK ERECTOR Cervicalgia Anxiety Disorder ICD-300.00 Inactive Vishal Hui [...] each nostril daily before bed. FLUTICASONE PROPIONATE 56345626768 Active Fabiola Johnson APRN Active VERAPAMIL HCL ER 120 MG ORAL CR-TABS 1 tab po daily for blood pressure 09/27 VERAPAMIL HCL 82814061421 Active Fabiola Johnson APRN Active ADZENYS XR-ODT 6.3 MG ORAL TBED 1 tab po daily for ADHD AMPHETAMINE 76517487402 Active Fabiola Johnson APRN Active BENADRYL 25 MG CAP 4 po at bedtime for insomnia DIPHENHYDRAMINE HCL 77360195501 Active Fabiola Johnson APRN Active KLONOPIN 1 MG ORAL TABS 1 tab po TID CLONAZEPAM 15770779149 Active Fabiola Johnson APRN Active VALIUM 5 MG TAB Take 1-2 tablets daily DIAZEPAM 66300449033 No Longer Active Fabiola Johnson APRN Active METOPROLOL TARTRATE 25 MG ORAL TABS 1/2 tablet twice daily for heart rate and blood pressure METOPROLOL TARTRATE 08474673623 No Longer Active Fabiola Johnson APRN Active MIRALAX ORAL POWD 17GMS DAILY IN WATER POLYETHYLENE GLYCOL 3350 14140123670 Active Vishal Hui MD Active VIIBRYD 10 MG ORAL TABS Take 1 tablet once a day VILAZODONE HCL 00701923924 Active Ahmet Carbajal MD Active DICLOFENAC POTASSIUM TABS Take 1 tablet twice a day (pt. is not sure of the dose.) DICLOFENAC POTASSIUM TABS 37159167755 Active Ahmet Carbajal MD Active MIRALAX PACK 1 po qd PRN Constipation POLYETHYLENE GLYCOL 3350 42994761631 No Longer Active Ahmet Carbajal MD Active MINIPRESS 2 MG CAPS 4 cap po at night PRAZOSIN HCL 93301355372 No Longer Active Ahmet Carbajal MD Active PIROXICAM 20 MG CAPS 1 cap po qd PRN Pain PIROXICAM 39393004446 No Longer Active Ahmet Carbajal MD Active TRAMADOL HCL 50 MG TABS 1-2 po TID PRN Pain TRAMADOL HCL 44125076583 No Longer Active Ahmet Carbajal MD Active METOPROLOL TARTRATE 50 MG TAB 1 po bid METOPROLOL TARTRATE 18803686402 No Longer Active Ahmet Carbajal MD Active ABILIFY 15 MG ORAL TABS 1 tab daily ARIPIPRAZOLE 23996651819 No Longer Active Ahmet Carbajal MD Active PROZAC 20 MG ORAL CAPS 1 tab daily FLUOXETINE HCL 03787450451 No Longer Active Ahmet Carbajal MD Active AMBIEN 5 MG ORAL TABS 1 tab at bedtime ZOLPIDEM TARTRATE 87638285701 No Longer Active Ahmet Carbajal MD Active PREDNISONE 20 MG TAB 2 tabs daily for 4 days, 1 tab daily for 4 days, 1/2 tab daily for 4 days PREDNISONE 47987906850 No Longer Active Ahmet Carbajal MD Active KEFLEX 500 MG CAP 1 po TID x 10 days CEPHALEXIN 17626176867 No Longer Active Vishal Hui MD Active ABILIFY MAINTENA 400 MG IM SUSR Injection once per month ARIPIPRAZOLE 21715100642 Active Juliet Kimbrough APRN Active IMITREX 50 MG ORAL TABS 1/2 tab every 6 hours prn SUMATRIPTAN SUCCINATE 71170730839 Active Pacolljanee Martínez APRN Active TOPAMAX 50 MG ORAL TABS 1 tab twice daily TOPIRAMATE 09452993226 Active Vishal Hui MD Active SAPHRIS 5 MG SUBL 1 po bid ASENAPINE MALEATE 05523674147 No Longer Active Luigi Martínez APRN Active LATUDA 80 MG TABS Take one by mouth daily LURASIDONE HCL 51313744528 No Longer Active Luigi Martínez APRN Active AMLODIPINE BESYLATE 5 MG TABS 1 tablet by mouth daily AMLODIPINE BESYLATE 55724082869 No Longer Active Luigi Martínez APRN Active AMITRIPTYLINE HCL 100 MG TAB one at hs AMITRIPTYLINE HCL 06747375850 No Longer Active Vishal Hui MD Active TRAZODONE HCL 100 MG TAB take 1 at bedtime TRAZODONE HCL 53718823508 No Longer Active Vishal Hui MD Active VYVANSE 40 MG CAPS 1 daily, LISDEXAMFETAMINE DIMESYLATE 28149707792 No Longer Active Vishal Hui MD Active IBUPROFEN 600 MG TAB 1 po TID PRN IBUPROFEN 80502221092 No Longer Active Vishal Hui MD Active PROZAC 20 MG CAP Take one by mouth daily FLUOXETINE HCL 42821102445 No Longer Active Vishal Hui MD Active ZOFRAN 4 MG TABS 1 po q6hr PRN Nausea ONDANSETRON HCL Active Vishal Hui MD Active BACTRIM DS 800-160 MG TABS 1 pill by mouth twice daily SULFAMETHOXAZOLE-TRIMETHOPRIM 38424831789 No Longer Active Sahara Rodriguez MD PhD Active DIFLUCAN 150 MG TAB 1 tablet by mouth daily FLUCONAZOLE 51890917638 No Longer Active Vishal Hui MD Active TIZANIDINE HCL 4 MG TABS 1 po q6hr PRN Muscle Spasm/Back Pain TIZANIDINE HCL 09785594579 Active Vishal Hui MD Active CLINDAMYCIN HCL 150 MG CAPS 1 four times a day CLINDAMYCIN HCL 37518036216 No Longer Active Neeraj Collins MD Active KEFLEX 500 MG ORAL CAPS 1 cap QID by mouth CEPHALEXIN 60396052701 No Longer Active Neeraj Collins MD Active DIFLUCAN 150 MG TABS 1 pill every other day x 2 doses FLUCONAZOLE 38726119191 No Longer Active Sahara Rodriguez MD PhD Active MELATONIN 3 MG CAPS 2 po q hs MELATONIN 87194297818 No Longer Active Sahara Rodriguez MD PhD Active MULTIVITAMINS CAPS Take one by mouth daily MULTIPLE VITAMIN 97073716357 No Longer Active Sahara Rodriguez MD PhD Active BACTRIM DS 800-160 MG TAB 1 tab by mouth twice daily TRIMETHOPRIM-SULFAMETHOXAZOLE 51235980919 No Longer Active Sahara Rodriguez MD PhD Active [facility] PROBIOTIC ORAL CHEW 2 daily po PROBIOTIC PRODUCT 11257460030 No Longer Active Sahara Rodriguez MD PhD Active BACTRIM DS 800-160 MG TABS 1 po BID x 7 days SULFAMETHOXAZOLE-TRIMETHOPRIM 63324074391 No Longer Active Vishal Hui MD Active CHANTIX STARTING MONTH EARNEST 0.5 MG X 11 & 1 MG X 42 TABS 0.5mg daily for 3 days , then 0.5mg BID for 4 days, then 1mg BID VARENICLINE TARTRATE 77462432230 No Longer Active TAMARA Gray Active VERAPAMIL HCL CR 120 MG TAB CR 1 po bid VERAPAMIL HCL 18876495821 No Longer Active Vishal Hui MD Active METOPROLOL SUCCINATE 50 MG TB24 1 tablet by mouth daily METOPROLOL SUCCINATE 20642815045 No Longer Active Vishal Hui MD Active SAPHRIS 10 MG SUBL 1 tab po bid ASENAPINE MALEATE 81203548873 No Longer Active Vishal Hui MD Active LISINOPRIL 20 MG TABS 1 tab po qd LISINOPRIL 16297374035 No Longer Active Vishal Hui MD Active LATUDA 20 MG TABS Take one by mouth daily LURASIDONE HCL 45526463545 No Longer Active Vishal Hui MD Active TRAZODONE HCL 50 MG TABS 1/2 tab po qd prn for anxiety TRAZODONE HCL 72023139662 No Longer Active Vishal Hui MD Active OMEPRAZOLE 20 MG TBEC 1 po q a.m. 30min prior to first food intake OMEPRAZOLE 79360274510 Active Vishal Hui MD Active RANITIDINE HCL 150 MG CAPS 1 twice a day RANITIDINE HCL 17510035660 Active Luigi Martínez LEANN Active LINZESS 290 MCG CAPS Take one by mouth daily LINACLOTIDE 79619368331 No Longer Active Vishal Hui MD Active SAPHRIS 5 MG SUBL 1 tab po qd ASENAPINE MALEATE 73081312051 No Longer Active Vishal Hui MD Active ZALEPLON 10 MG CAPS 1 cap po every other night ZALEPLON 79995313381 No Longer Active Vishal Hui MD Active LYRICA 50 MG CAPS 1 tab po TID PREGABALIN 42688386384 No Longer Active Vishal Hui MD Active LORATADINE 10 MG TABS 1 tab po qd LORATADINE 45402959243 No Longer Active Vishal Hui MD Active VERAPAMIL HCL ER 180 MG CR-TABS 1 tab po bid VERAPAMIL HCL 99336700320 No Longer Active Vishal Hui MD Active MIRALAX POWD 1 capfull once daily POLYETHYLENE GLYCOL 3350 47374266896 No Longer Active Vishal Hui MD Active PREDNISONE 20 MG TABS 1 tab po qd PREDNISONE 29749770472 No Longer Active Renzo Thornton DO Active LEVOFLOXACIN 500 MG TABS 1 tab po qd LEVOFLOXACIN 36098056562 No Longer Active Renzo Thornton DO Active BUSPIRONE HCL 15 MG TABS 1 tab po TID BUSPIRONE HCL 71563606539 No Longer Active Renzo Thornton DO Active BENZTROPINE MESYLATE 1 MG TABS 1 tab po qd BENZTROPINE MESYLATE 45978873689 No Longer Active Renzo Thornton DO Active ATENOLOL 25 MG TABS 1 tab po qd ATENOLOL 36306338178 No Longer Active Renzo Thornton DO Active ESCITALOPRAM OXALATE 20 MG TABS 1 tab po qd ESCITALOPRAM OXALATE 39836392561 No Longer Active Renzo Thornton DO Active ADVAIR DISKUS 250-50 MCG/DOSE AEPB 1 puff BID FLUTICASONE-SALMETEROL 84689642241 No Longer Active Renzo Thornton DO Active PREDNISONE 20 MG TAB 2 tabs daily for 3 days, 1 tab daily for 3 days, 1/2 tab daily for 2 days PREDNISONE 27931789957 No Longer Active Vishal Hui MD Active CEFDINIR 300 MG CAPS by mouth twice a day CEFDINIR 03782078254 No Longer Active Vishal Hui MD Active LANSOPRAZOLE 30 MG CPDR 1 cap po qd LANSOPRAZOLE 57892318517 No Longer Active Vishal Hui MD Active BACLOFEN 20 MG TABS 1 tab po tid BACLOFEN 15325069890 No Longer Active Vishal Hui MD Active ADVAIR DISKUS 250-50 MCG/DOSE AEPB 1 puff BID ADVAIR DISKUS 250-50 MCG/DOSE AEPB FLUTICASONE-SALMETEROL Inactive ESCITALOPRAM OXALATE 20 MG TABS 1 tab po qd ESCITALOPRAM OXALATE 20 MG TABS 288992 ESCITALOPRAM OXALATE Inactive ATENOLOL 25 MG TABS 1 tab po qd ATENOLOL 25 MG TABS 055590 ATENOLOL Inactive BENZTROPINE MESYLATE 1 MG TABS 1 tab po qd BENZTROPINE MESYLATE 1 MG TABS 924430 BENZTROPINE MESYLATE Inactive BUSPIRONE HCL 15 MG TABS 1 tab po TID BUSPIRONE HCL 15 MG TABS 319160 BUSPIRONE HCL Inactive LEVOFLOXACIN 500 MG TABS 1 tab po qd LEVOFLOXACIN 500 MG TABS 392113 LEVOFLOXACIN Inactive PREDNISONE 20 MG TABS 1 tab po qd PREDNISONE 20 MG TABS 175032 PREDNISONE Inactive MIRALAX POWD 1 capfull once daily MIRALAX POWD 951903 POLYETHYLENE GLYCOL 3350 Inactive VERAPAMIL HCL ER 180 MG CR-TABS 1 tab po bid VERAPAMIL HCL ER 180 MG CR-TABS VERAPAMIL HCL Inactive LORATADINE 10 MG TABS 1 tab po qd LORATADINE 10 MG TABS 739054 LORATADINE Inactive LYRICA 50 MG CAPS 1 tab po TID LYRICA 50 MG CAPS PREGABALIN Inactive ZALEPLON 10 MG CAPS 1 cap po every other night ZALEPLON 10 MG CAPS 077707 ZALEPLON Inactive SAPHRIS 5 MG SUBL 1 tab po qd SAPHRIS 5 MG SUBL ASENAPINE MALEATE Inactive TRAZODONE HCL 50 MG TABS 1/2 tab po qd prn for anxiety TRAZODONE HCL 50 MG TABS 962107 TRAZODONE HCL Inactive LATUDA 20 MG TABS Take one by mouth daily LATUDA 20 MG TABS LURASIDONE HCL Inactive LISINOPRIL 20 MG TABS 1 tab po qd LISINOPRIL 20 MG TABS 966740 LISINOPRIL Inactive SAPHRIS 10 MG SUBL 1 [...] twice daily BACTRIM DS 800-160 MG TAB 545141 TRIMETHOPRIM-SULFAMETHOXAZOLE Inactive MULTIVITAMINS CAPS Take one by mouth daily MULTIVITAMINS CAPS MULTIPLE VITAMIN Inactive MELATONIN 3 MG CAPS 2 po q hs MELATONIN 3 MG CAPS 331615 MELATONIN Inactive KEFLEX 500 MG ORAL CAPS 1 cap QID by mouth KEFLEX 500 MG ORAL CAPS 676785 CEPHALEXIN Inactive CLINDAMYCIN HCL 150 MG CAPS 1 four times a day CLINDAMYCIN HCL 150 MG CAPS 673481 CLINDAMYCIN HCL Inactive DIFLUCAN 150 MG TAB 1 tablet by mouth daily DIFLUCAN 150 MG TAB 276171 FLUCONAZOLE Inactive PROZAC 20 MG CAP Take one by mouth daily PROZAC 20 MG CAP 997994 FLUOXETINE HCL Inactive IBUPROFEN 600 MG TAB 1 po TID PRN IBUPROFEN 600 MG TAB 786899 IBUPROFEN Inactive VYVANSE 40 MG CAPS 1 daily, VYVANSE 40 MG CAPS LISDEXAMFETAMINE DIMESYLATE Inactive TRAZODONE HCL 100 MG TAB take 1 at bedtime TRAZODONE HCL 100 MG TAB 485955 TRAZODONE HCL Inactive AMITRIPTYLINE HCL 100 MG TAB one at hs AMITRIPTYLINE HCL 100 MG TAB 655130 AMITRIPTYLINE HCL Inactive AMLODIPINE BESYLATE 5 MG TABS 1 tablet by mouth daily AMLODIPINE BESYLATE 5 MG TABS 192787 AMLODIPINE BESYLATE Inactive LATUDA 80 MG TABS Take one by mouth daily LATUDA 80 MG TABS LURASIDONE HCL Inactive SAPHRIS 5 MG SUBL 1 po bid SAPHRIS 5 MG SUBL ASENAPINE MALEATE Inactive PREDNISONE 20 MG TAB 2 tabs daily for 4 days, 1 tab daily for 4 days, 1/2 tab daily for 4 days PREDNISONE 20 MG TAB 192912 PREDNISONE Inactive AMBIEN 5 MG ORAL TABS 1 tab at bedtime AMBIEN 5 MG ORAL TABS 491834 ZOLPIDEM TARTRATE Inactive PROZAC 20 MG ORAL CAPS 1 tab daily PROZAC 20 MG ORAL CAPS 844283 FLUOXETINE HCL Inactive ABILIFY 15 MG ORAL TABS 1 tab daily ABILIFY 15 MG ORAL TABS 745720 ARIPIPRAZOLE Inactive METOPROLOL TARTRATE 50 MG TAB 1 po bid METOPROLOL TARTRATE 50 MG TAB 317736 METOPROLOL TARTRATE Inactive TRAMADOL HCL 50 MG TABS 1-2 po TID PRN Pain TRAMADOL HCL 50 MG TABS 051144 TRAMADOL HCL Inactive PIROXICAM 20 MG CAPS 1 cap po qd PRN Pain PIROXICAM 20 MG CAPS 279205 PIROXICAM Inactive MINIPRESS 2 MG CAPS 4 cap po at night MINIPRESS 2 MG CAPS 605280 PRAZOSIN HCL Inactive MIRALAX PACK 1 po qd PRN Constipation MIRALAX PACK 264577 POLYETHYLENE GLYCOL 3350 Inactive METOPROLOL TARTRATE 25 MG ORAL TABS 1/2 tablet twice daily for heart rate and blood pressure METOPROLOL TARTRATE 25 MG ORAL TABS 682593 METOPROLOL TARTRATE Inactive VALIUM 5 MG TAB Take 1-2 tablets daily VALIUM 5 MG TAB 667368 DIAZEPAM Inactive CEFDINIR 300 MG CAPS by mouth twice a day CEFDINIR 300 MG CAPS 507067 CEFDINIR Inactive PREDNISONE 20 MG TAB 2 tabs daily for 3 days, 1 tab daily for 3 days, 1/2 tab daily for 2 days PREDNISONE 20 MG TAB 877993 PREDNISONE Inactive BACTRIM DS 800-160 MG TABS [...] x 10 days KEFLEX 500 MG CAP 971320 CEPHALEXIN Inactive Advance Directives Directive Description Start [...] % 11.6-14.8 platelet count 394 10^3/MM^3 10*3/mm3 092-994 6962/01/11 leukocyte count, blood 13.8 10^3/MM^3 10*3/mm3 4.6-10.2 [...] Panel - Chemistry sodium, serum 139 mmol/L 842-630 1936/12/03 carbon dioxide, venous blood 28.5 mmol/L 21.0-32.0 [...] 5.5 % 4.3-6.0 cholesterol, serum 159 mg/dL 562-771 3447/12/03 triglyceride, serum, fasting 118 mg/dL 30-200 HDL [...] Panel - Chemistry sodium, serum 139 mmol/L 703-865 3428/12/22 carbon dioxide, venous blood 26.8 mmol/L 21.0-32.0 potassium, serum 4.2 mmol/L 3.5-5.2 chloride, serum 103 mmol/L 98-107 blood glucose 115 mg/dL 65-110 urea nitrogen, blood 20 mg/dL 7-18 creatinine, serum 0.90 mg/dL 0.55-1.30 alanine aminotransferase (SGPT), serum 38 U/L - aspartate aminotransferase (SGOT), serum 19 U/L 15-37 calcium, serum 8.6 mg/dL 8.5-10.1 bilirubin, serum, total 0.30 mg/dL 0.00-1.00 sodium, serum 139 mmol/L 978-328 1607/01/11 carbon dioxide, venous blood 26.6 mmol/L 21.0-32.0 potassium, serum 4.1 mmol/L 3.5-5.2 chloride, serum 100 mmol/L 98-107 blood glucose 86 mg/dL 65-110 urea nitrogen, blood 16 mg/dL 7-18 creatinine, serum 1.00 mg/dL 0.55-1.30 alanine aminotransferase (SGPT), serum 48 U/L aspartate aminotransferase (SGOT), serum 17 U/L 15-37 calcium, serum 9.1 mg/dL 8.5-10.1 bilirubin, serum, total 0.40 mg/dL 0.00-1.00 sodium, serum 142 mmol/L 316-363 5750/06/08 carbon dioxide, venous blood 27.6 mmol/L 21.0-32.0 [...] Rate - Chemistry sodium, serum 139 mmol/L 287-320 5662/12/11 carbon dioxide, venous blood 25.4 mmol/L 21.0-32.0 [...] mg/dL Encounters Code Encounter Date Provider Facility CPT-49083 Level 3 Est. Patient 08:56:03 CDT Luigi Martínez [facility] CPT-61531 Level 4 Est. Patient 12:11:48 CDT Fabiola Johnson [facility] CPT-43170 Level 3 New Patient 16:53:37 CDT Albert Caldera MD [facility] CPT-17598 Level 3 Est. Patient 11:25:49 CDT Renzo Thornton DO [facility] CPT-36337 Level 3 Est. Patient 15:22:01 CDT Ahmet Carbajal MD [facility] CPT-02572 Level 4 Est. Patient 09:00:51 RAISIN SEPARATOR OPERATOR Vishal Hui MD [facility] CPT-52756 Level 3 Est. Patient 11:37:33 RAISIN SEPARATOR OPERATOR Vishal Hui MD [facility] CPT-61765 Level 3 Est. Patient 08:41:09 RAISIN SEPARATOR OPERATOR Vishal Hui MD [facility] CPT-85181 Level 4 Est. Patient 10:19:35 RAISIN SEPARATOR OPERATOR Vishal Hui MD [facility] CPT-49675 Level 3 Est. Patient 13:35:45 CDT Vishal Hui MD [facility] CPT-15015 Level 4 Est. Patient 10:08:37 CDT Vishal Hui MD [facility] CPT-90248 Level 3 Est. Patient 11:22:10 CDT Vishal Hui MD [facility] CPT-80444 Level 3 Est. Patient 11:03:32 CDT Sahara Rodriguez MD PhD [facility] CPT-47298 Level 3 Est. Patient 09:41:35 CDT Vishal Hui MD [facility] CPT-42074 Level 3 Est. Patient 12:00:41 CDT Neeraj Collins MD [facility] CPT-41065 Level 3 Est. Patient 09:16:24 CDT Vishal Hui MD [facility] CPT-12051 Level 4 Est. Patient 13:59:09 CDT Neeraj Collins MD [facility] CPT-11307 Level 3 Est. Patient 15:19:43 CDT Renzo Thornton DO [facility] CPT-95023 Level 3 Est. Patient 18:10:26 CDT Sahara Rodriguez MD [facility]-32664 Level 3 Est. Patient 14:49:50 CDT Vishal Hui MD [facility] CPT-65866 Level 4 Est. Patient 18:41:46 CDT Neeraj Collins MD [facility] CPT-43427 Level 4 Est. Patient 09:18:38 RAISIN SEPARATOR OPERATOR Vishal Hui MD [facility] CPT-10779 Level 3 Est. Patient 14:43:55 RAISIN SEPARATOR OPERATOR Vishal Hui MD [facility] CPT-49092 Level 3 Est. Patient 15:26:33 RAISIN SEPARATOR OPERATOR Sahara Rodriguez MD PhD [facility] CPT-04344 Level 3 Est. Patient 10:32:14 RAISIN SEPARATOR OPERATOR Vishal Hui MD [facility] CPT-26285 Level 3 Est. Patient 15:12:52 RAISIN SEPARATOR OPERATOR Vishal Hui MD [facility] CPT-00997 Level 4 Est. Patient 09:19:27 CDT Vishal Hui MD [facility] CPT-83756 Level 3 Est. Patient 15:53:00 CDT Renzo Thornton DO [facility] CPT-60320 Level 3 Est. Patient 15:50:30 CDT Renzo Thornton DO [facility] CPT-15517 Level 3 Est. Patient 16:55:24 CDT Vishal Hui MD [facility] Procedures Code Procedure Name Date Entry Date Standard Description CPT-92848 Cervical Min 4V - XRAY USE ONLY 09:01:40 CDT CPT-97074 Chest 2V Frontal and Lat - XRAY USE ONLY 11:06:31 CDT CPT-26760 EKG Trac and Interp - XRAY USE ONLY 11:31:43 CDT 08/26 CPT-J3420 Vitamin B12 1000mcg (Cyanocobalamin) 08:10:26 RAISIN SEPARATOR OPERATOR 04/12 CPT-23249 Abx/Therapy Injection 08:10:26 RAISIN SEPARATOR OPERATOR CPT-G0438 Initial Annual Wellness Exam 19:01:01 RAISIN SEPARATOR OPERATOR CPT-J3420 Vitamin B12 1000mcg (Cyanocobalamin) 16:57:46 CDT 08/14 CPT-04430 Recombivax HB Injection Suspension 5 MCG/0.5ML 08:37:50 RAISIN SEPARATOR OPERATOR CPT-85866 Immunization Single Admin 08:37:50 RAISIN SEPARATOR OPERATOR CPT-J3420 Vitamin B12 1000mcg (Cyanocobalamin) 08:32:16 RAISIN SEPARATOR OPERATOR 03/11 CPT-85925 Abx/Therapy Injection 08:32:16 RAISIN SEPARATOR OPERATOR CPT-53988 Chest 2V Frontal and Lat 11:46:38 RAISIN SEPARATOR OPERATOR CPT-88110 Venipuncture Draw Fee 09:12:45 RAISIN SEPARATOR OPERATOR CPT-J3420 Vitamin B12 1000mcg (Cyanocobalamin) 08:50:15 RAISIN SEPARATOR OPERATOR 02/08 CPT-37609 Abx/Therapy Injection 08:50:15 RAISIN SEPARATOR OPERATOR CPT-Cryo Cryotherapy 10:19:35 RAISIN SEPARATOR OPERATOR CPT-000 Give Appropriate Flu Vaccine 09:22:16 CDT CPT-J3420 Vitamin B12 1000mcg (Cyanocobalamin) 19:08:57 CDT 01/11 CPT-25315 Abx/Therapy Injection 19:08:57 CDT CPT-J3420 Vitamin B12 1000mcg (Cyanocobalamin) 08:19:08 CDT 12/11 CPT-77050 Abx/Therapy Injection 08:19:08 CDT CPT-J3420 Vitamin B12 1000mcg (Cyanocobalamin) 14:48:00 CDT 11/09 CPT-25889 Abx/Therapy Injection 14:47:59 CDT CPT-J3420 Vitamin B12 1000mcg (Cyanocobalamin) 08:34:04 CDT 10/09 CPT-31015 Abx/Therapy Injection 08:34:04 CDT CPT-J3420 Vitamin B12 1000mcg (Cyanocobalamin) 09:18:52 CDT 09/11 CPT-52542 Abx/Therapy Injection 09:18:52 CDT CPT-J3420 Vitamin B12 1000mcg (Cyanocobalamin) 08:35:44 CDT 09/04 CPT-20157 Abx/Therapy Injection 08:35:44 CDT CPT-20435 Immunization Single Admin 11:07:16 CDT CPT-88429 Hepatitis B adult IM 11:07:16 CDT CPT-J3420 Vitamin B12 1000mcg (Cyanocobalamin) 11:00:49 CDT 08/28 CPT-J1040 Depo Medrol 80 mg (Methyl Prednisolone Acetate) 11:00: 49 CDT CPT-17998 Abx/Therapy Injection 11:00:49 CDT CPT-J1040 Depo Medrol 80 mg (Methyl Prednisolone Acetate) 09:16: 23 CDT CPT-J3420 Vitamin B12 1000mcg (Cyanocobalamin) 08:27:05 CDT 08/20 CPT-81146 Abx/Therapy Injection 08:27:05 CDT CPT-75346 Recombivax HB Injection Suspension 5 MCG/0.5ML 10:00:41 CDT CPT-03279 Administration single or combination vaccine inc oral 10 :00:41 CDT CPT-76456 Sono transvag pelvis non OB uterus ovaries cervix 16:36: 57 CDT CPT-99225 LS spine comp w obliq 09:50:55 RAISIN SEPARATOR OPERATOR CPT-56034 Abd compl w upright 09:50:55 RAISIN SEPARATOR OPERATOR CPT-J1100 Decadron 4mg (Dexamethasone) 15:51:24 RAISIN SEPARATOR OPERATOR CPT-J1030 Depo Medrol 40 mg (Methyl Prednisolone Acetate) 15:51: 24 RAISIN SEPARATOR OPERATOR CPT-90458 Abx/Therapy Injection 15:51:24 RAISIN SEPARATOR OPERATOR CPT-J1100 Decadron 4mg (Dexamethasone) 15:26:33 RAISIN SEPARATOR OPERATOR CPT-J1030 Depo Medrol 40 mg (Methyl Prednisolone Acetate) 15:26: 33 RAISIN SEPARATOR OPERATOR CPT-02795 Sono retroperitoneal complete kidneys and bladder 17:15: 30 CDT CPT-46018 Abd compl w upright 16:09:25 CDT CPT-J1100 Decadron 8mg (Dexamethasone) 17:07:57 CDT CPT-84474 Abx/Therapy Injection 17:07:57 CDT CPT-J1100 Decadron 8mg (Dexamethasone) 16:55:24 CDT CPT-89163 Chest 2V Frontal and Lat 16:32:44 CDT
--- OUTSIDE RECORDS SUMMARY | 2016-11-04 18:25 | XMS REPORT | Clinical Summary ---
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 Other specified cardiac dysrhythmias Schizoaffective disorder [...] Active Ahmet Carbajal MD Generalized anxiety disorder Credit Collector well woman exam V72.31 Active Suzan Boo [...] Boo APRN Cervicalgia Anxiety Disorder ICD-300.00 Inactive Vsihal Hui MD Pneumonia, organism unspecified ICD-486 Inactive Vishal Hui MD Flank pain, right ICD-789.09 Inactive Vishal Hui MD G E R D ICD-530.81 Inactive Vishal Hui MD Health screening ICD-V70.0 Inactive Suzan Boo REAL ESTATE FINANCIAL ANALYST Sinus tachycardia ICD-427.89 Inactive Suzan Boo REAL ESTATE FINANCIAL ANALYST Smoker/tobacco use disorder-smoking cessation discussed ICD-305.1 [...] prior to first meal each day. LINACLOTIDE [id number] Active Lynda Madl MARKETING ASSISTANT [employer] Active AMITIZA 8 MCG ORAL CAPS 1 tab BID LUBIPROSTONE 79426430597 No Longer Active Lynda Madl MARKETING ASSISTANT [employer] Active DIFLUCAN 150 MG TABS 1 by mouth for yeast FLUCONAZOLE 29352952423 Active Suzan Boo APRN Active LACTULOSE 10 GM/15ML ORAL SOLN 30mL oral BID for IBS-C LACTULOSE 54808120943 Active Suzan Boo APRN Active BACTRIM DS 800-160 MG TABS 1 twice a day SULFAMETHOXAZOLE- TRIMETHOPRIM 38797210769 Active Lynda Xiao LPN Active MUPIROCIN 2 % OINT apply twice a day MUPIROCIN 30333217495 Active Suzan Boo APRN Active TESSALON PERLES 100 MG CAPS 1 three times a day as needed for cough BENZONATATE 34848650176 No Longer Active Suzan oBo APRN Active BACTRIM DS 800-160 MG TABS 1 twice a day SULFAMETHOXAZOLE-TRIMETHOPRIM 82872446153 No Longer Active Suzan Boo APRN Active DIFLUCAN 150 MG TABS 1 by mouth for yeast FLUCONAZOLE 74211648116 No Longer Active Suzan Boo APRN Active EQ NICOTINE 21 MG/24HR TRANS PT24 Apply daily to stop smoking NICOTINE 02091159926 No Longer Active Suzan Boo APRN Active PREDNISONE 10 MG TABS 2 daily for 5 days then 1 daily for 5 days PREDNISONE 83539098711 No Longer Active Suzan Boo APRN Active LEVAQUIN 500 MG TABS 1 daily for infection LEVOFLOXACIN 89301415970 No Longer Active Suzan Boo APRN Active TROPICAMIDE 0.5 % OPHTH SOLN 1 drop PRN eye spasms TROPICAMIDE 40295990618 No Longer Active Suzan Boo APRN Active PREDNISONE 20 MG TAB 1 tablet daily x 4 days PREDNISONE 61373559373 No Longer Active Suzan Boo APRN Active ACETAMINOPHEN-CODEINE 120-12 MG/5ML SOLN 5 ml by mouth every 4-6 hours if needed for cough ACETAMINOPHEN-CODEINE 02262103418 No Longer Active Suzan Boo APRN Active KEFLEX 500 MG CAP 1 po qid CEPHALEXIN 11784185557 No Longer Active Suzan Boo APRN Active FLOVENT HFA 110 MCG/ACT AERO 2 puffs inhaled b.i.d. FLUTICASONE PROPIONATE HFA 11902489188 Active Renzo Thornton DO Active RISPERDAL 4 MG ORAL TABS 1 tab at bedtime RISPERIDONE 89608919021 Active Samantha Rothman RMA Active ZOFRAN 4 MG TABS 1 po q6hr PRN Nausea ONDANSETRON HCL No Longer Active Suzan Boo APRN Active FLUTICASONE PROPIONATE 50 MCG/ACT SUSP 2 sprays each nostril daily before bed. FLUTICASONE PROPIONATE 92244770115 No Longer Active Suzan Boo APRN Active ASPIRIN 325 MG ORAL TABS 1 tab q.d ASPIRIN 66901305882 No Longer Active Suzan Boo APRN Active HALOPERIDOL 10 MG ORAL TABS 1 tab q.d HALOPERIDOL 40185287882 No Longer Active Suzan Boo APRN Active GUAIFENESIN-CODEINE 100-10 MG/5ML SYRP 5ml every 4 to 6 hours as needed for cough GUAIFENESIN-CODEINE 22924687955 No Longer Active Suzan Boo APRN Active ZITHROMAX Z-EARNEST 250 MG TABS 2 today and then 1 daily for 4 days AZITHROMYCIN 90240522993 No Longer Active Suzan Boo APRN Active CLONAZEPAM 1 MG ORAL TABS 1 twice a day and an additional 1 tablet every other day as needed for pseudoseizures or anxiety CLONAZEPAM 65581083431 Active Suzan Boo APRN Active HYDROCODONE-ACETAMINOPHEN 5-325 MG ORAL TABS 1 tab two times a day HYDROCODONE-ACETAMINOPHEN 85101079019 No Longer Active Ahmet Carbajal MD Active LAMICTAL 100 MG ORAL TABS 1 tab 2 times qd. LAMOTRIGINE 72546271820 Active Ahmet Carbajal MD Active PREDNISONE 20 MG TABS 2 daily for 5 days then 1 daily for 5 days PREDNISONE 03107278321 No Longer Active Ahmet Carbajal MD Active FLUTICASONE PROPIONATE 50 MCG/ACT SUSP 1 to 2 sprays each nostril daily for allergies FLUTICASONE PROPIONATE 48493714540 Active Tila Valenzuela Active BENADRYL 25 MG CAP 4 po at bedtime for insomnia DIPHENHYDRAMINE HCL 34506991352 No Longer Active Ahmet Carbajal MD Active ADVAIR DISKUS 250-50 MCG/DOSE INH AEPB 1 puff twice a day for asthma FLUTICASONE-SALMETEROL 73839380888 No Longer Active Ahmet Carbajal MD Active KLONOPIN 1 MG ORAL TABS 1 tab po TID CLONAZEPAM 07344548081 No Longer Active Ahmet Carbajal MD Active ABILIFY MAINTENA 400 MG IM SUSR 400mg injection every 26 days ARIPIPRAZOLE 93219169319 No Longer Active Ahmet Carbajal MD Active TRAMADOL HCL 50 MG TABS 1/2-1 tab TID PRN TRAMADOL HCL 09816143729 No Longer Active Ahmet Carbajal MD Active BACTRIM DS 800-160 MG TABS 1 twice a day SULFAMETHOXAZOLE- TRIMETHOPRIM 81588266942 No Longer Active Ahmet Carbajal MD Active PROAIR HFA 108 (90 BASE) MCG/ACT AERS 2 puffs four times a day as needed 2015 ALBUTEROL SULFATE 45665909453 Active Honey Hinton APRN Active MONISTAT 7 COMBO PACK WOODROW 100 & 2 MG-% (9GM) VAG KIT 1 applicatorful per vagina q pm x 7 MICONAZOLE NITRATE 33193748502 No Longer Active Ahmet Carbajal MD Active FLAGYL 500 MG TAB 1 tablet by mouth bid METRONIDAZOLE 04309843408 No Longer Active Ahmet Carbajal MD Active OXYCODONE HCL ER 10 MG ORAL T12A 1/2 tab by mouth every 4 hours prn OXYCODONE HCL 56575589647 No Longer Active Ahmet Carbajal MD Active METHYLPREDNISOLONE 4 MG ORAL TABS po daily METHYLPREDNISOLONE 72960364825 No Longer Active Ahmet Carbajal MD Active LEVOFLOXACIN 500 MG ORAL TABS po daily LEVOFLOXACIN 15586341286 No Longer Active Ahmet Carbajal MD Active VIIBRYD 10 MG ORAL TABS Take 1 tablet once a day VILAZODONE HCL 33567084633 No Longer Active Ahmet Carbajal MD Active TOPAMAX 50 MG ORAL TABS 1 tab twice daily TOPIRAMATE 36195729647 No Longer Active Ahmet Carbajal MD Active DICLOFENAC SODIUM 50 MG TBEC 1 tablet by mouth four times daily PRN Pain 2015 DICLOFENAC SODIUM 62982590707 No Longer Active Ahmet Carbajal MD Active ADZENYS XR-ODT 6.3 MG ORAL TBED 1 tab po daily for ADHD AMPHETAMINE 48102904357 No Longer Active Ahmet Carbajal MD Active CHANTIX 1 MG TABS 1 twice a day to help quit smoking VARENICLINE TARTRATE 36784429996 No Longer Active Dipika Burgos MD Active CHANTIX STARTING MONTH EARNEST 0.5 MG X 11 & 1 MG X 42 TABS take as directed 2015 VARENICLINE TARTRATE 51284571103 No Longer Active Dipika Burgos MD Active TESSALON PERLES 100 MG CAP 1 to 2 tablets by mouth 3 times daily as needed for cough BENZONATATE 52568900332 No Longer Active Luigi Martínez APRN Active IMITREX 50 MG ORAL TABS 0.5 po x 1 PRN Headache. May repeat dose x 1 in 2 hours if needed SUMATRIPTAN SUCCINATE 75870062385 Active Ahmet Carbajal MD Active HYDROCODONE-ACETAMINOPHEN 5-325 MG TABS 1 to 2 four times a day as needed for pain use until can be seen by specialist HYDROCODONE- ACETAMINOPHEN 79987808029 No Longer Active Vishal Hui MD Active PROAIR HFA 108 (90 BASE) MCG/ACT AERS 2 puffs four times a day as needed 2015 ALBUTEROL SULFATE 67321007384 No Longer Active Vishal Hui MD Active PREDNISONE 20 MG TABS 2 daily for 5 days then 1 daily for 5 days PREDNISONE 66771483506 No Longer Active Vishal Hui MD Active ZITHROMAX Z-EARNEST 250 MG TABS 2 today and then 1 daily for 4 days AZITHROMYCIN 59096981137 No Longer Active Vishal Hui MD Active DICLOFENAC POTASSIUM TABS Take 1 tablet twice a day (pt. is not sure of the dose.) DICLOFENAC POTASSIUM TABS 40555699204 No Longer Active Vishal Hui MD Active VERAPAMIL HCL ER 120 MG ORAL CR-TABS Take 1 tablet by mouth twice a day. VERAPAMIL HCL 75864008701 Active Vishal Hui MD Active FLAGYL 500 MG TAB 1 tablet by mouth bid METRONIDAZOLE 09257854512 No Longer Active Vishal Hui MD Active VALIUM 5 MG TAB Take 1-2 tablets daily DIAZEPAM 73680745206 No Longer Active Fabiola Johnson APRN Active METOPROLOL TARTRATE 25 MG ORAL TABS 1/2 tablet twice daily for heart rate and blood pressure METOPROLOL TARTRATE 66535061357 No Longer Active Fabiola Johnson APRN Active MIRALAX ORAL POWD 17GMS DAILY IN WATER POLYETHYLENE GLYCOL 3350 15088655112 Active TAMARA Casey Active MIRALAX PACK 1 po qd PRN Constipation POLYETHYLENE GLYCOL 3350 79717825027 No Longer Active Ahmet Carbajal MD Active MINIPRESS 2 MG CAPS 4 cap po at night PRAZOSIN HCL 22381630662 No Longer Active Ahmet Carbajal MD Active PIROXICAM 20 MG CAPS 1 cap po qd PRN Pain PIROXICAM 41422797789 No Longer Active Ahmet Carbajal MD Active TRAMADOL HCL 50 MG TABS 1-2 po TID PRN Pain TRAMADOL HCL 41435371271 No Longer Active Ahmet Carbajal MD Active METOPROLOL TARTRATE 50 MG TAB 1 po bid METOPROLOL TARTRATE 06070717491 No Longer Active Ahmet Carbajal MD Active ABILIFY 15 MG ORAL TABS 1 tab daily ARIPIPRAZOLE 86363311982 No Longer Active Ahmet Carbajal MD Active PROZAC 20 MG ORAL CAPS 1 tab daily FLUOXETINE HCL 79882203577 No Longer Active Ahmet Carbajal MD Active AMBIEN 5 MG ORAL TABS 1 tab at bedtime ZOLPIDEM TARTRATE 19884179243 No Longer Active Ahmet Carbajal MD Active PREDNISONE 20 MG TAB 2 tabs daily for 4 days, 1 tab daily for 4 days, 1/2 tab daily for 4 days PREDNISONE 63383526148 No Longer Active Ahmet Carbajal MD Active KEFLEX 500 MG CAP 1 po TID x 10 days CEPHALEXIN 47832071318 No Longer Active Vishal Hui MD Active SAPHRIS 5 MG SUBL 1 po bid ASENAPINE MALEATE 11917852415 No Longer Active Luigi Martínez REAL ESTATE FINANCIAL ANALYST Active LATUDA 80 MG TABS Take one by mouth daily LURASIDONE HCL 85953150633 No Longer Active Jillina Fralebron REAL ESTATE FINANCIAL ANALYST Active AMLODIPINE BESYLATE 5 MG TABS 1 tablet by mouth daily AMLODIPINE BESYLATE 42123266684 No Longer Active Jillina Frazell REAL ESTATE FINANCIAL ANALYST Active AMITRIPTYLINE HCL 100 MG TAB one at hs AMITRIPTYLINE HCL 35570470540 No Longer Active Vishal Hui MD Active TRAZODONE HCL 100 MG TAB take 1 at bedtime TRAZODONE HCL 79057331935 No Longer Active Vishal Hui MD Active VYVANSE 40 MG CAPS 1 daily, LISDEXAMFETAMINE DIMESYLATE 50037532224 No Longer Active Vishal Hui MD Active IBUPROFEN 600 MG TAB 1 po TID PRN IBUPROFEN 51927116395 No Longer Active Vishal Hui MD Active PROZAC 20 MG CAP Take one by mouth daily FLUOXETINE HCL 33579489146 No Longer Active Vishal Hui MD Active BACTRIM DS 800-160 MG TABS 1 pill by mouth twice daily SULFAMETHOXAZOLE-TRIMETHOPRIM 50530524811 No Longer Active Sahara Rodriguez MD PhD Active DIFLUCAN 150 MG TAB 1 tablet by mouth daily FLUCONAZOLE 60669602815 No Longer Active Vishal Hui MD Active TIZANIDINE HCL 4 MG TABS 1 po q6hr PRN Muscle Spasm/Back Pain TIZANIDINE HCL 07979535992 Active TAMARA Casey Active CLINDAMYCIN HCL 150 MG CAPS 1 four times a day CLINDAMYCIN HCL 60968900353 No Longer Active Neeraj Collins MD Active KEFLEX 500 MG ORAL CAPS 1 cap QID by mouth CEPHALEXIN 07308650926 No Longer Active Neeraj Collins MD Active DIFLUCAN 150 MG TABS 1 pill every other day x 2 doses FLUCONAZOLE 54506435503 No Longer Active Sahara Rodriguez MD PhD Active MELATONIN 3 MG CAPS 2 po q hs MELATONIN 08545358864 No Longer Active Sahara Rodriguez MD PhD Active MULTIVITAMINS CAPS Take one by mouth daily MULTIPLE VITAMIN 93964774586 No Longer Active Sahara Rodriguez MD PhD Active BACTRIM DS 800-160 MG TAB 1 tab by mouth twice daily TRIMETHOPRIM-SULFAMETHOXAZOLE 64949335202 No Longer Active Sahara Rodriguez MD PhD Active [facility] PROBIOTIC ORAL CHEW 2 daily po PROBIOTIC PRODUCT 31194047499 No Longer Active Sahara Rodriguez MD PhD Active BACTRIM DS 800-160 MG TABS 1 po BID x 7 days SULFAMETHOXAZOLE-TRIMETHOPRIM 40210285656 No Longer Active Vishal Hui MD Active CHANTIX STARTING MONTH EARNEST 0.5 MG X 11 & 1 MG X 42 TABS 0.5mg daily for 3 days , then 0.5mg BID for 4 days, then 1mg BID VARENICLINE TARTRATE 04268450179 No Longer Active TAMARA Gray Active VERAPAMIL HCL CR 120 MG TAB CR 1 po bid VERAPAMIL HCL 86261077103 No Longer Active Vishal Hui MD Active METOPROLOL SUCCINATE 50 MG TB24 1 tablet by mouth daily METOPROLOL SUCCINATE 77361990966 No Longer Active Vishal Hui MD Active SAPHRIS 10 MG SUBL 1 tab po bid ASENAPINE MALEATE 29846227220 No Longer Active Vishal Hui MD Active LISINOPRIL 20 MG TABS 1 tab po qd LISINOPRIL 76138969256 No Longer Active Vishal Hui MD Active LATUDA 20 MG TABS Take one by mouth daily LURASIDONE HCL 23863274953 No Longer Active Vishal Hui MD Active TRAZODONE HCL 50 MG TABS 1/2 tab po qd prn for anxiety TRAZODONE HCL 67170775572 No Longer Active Vishal Hui MD Active OMEPRAZOLE 20 MG TBEC 1 po q a.m. 30min prior to first food intake OMEPRAZOLE 49926496872 Active TAMARA Casey Active RANITIDINE HCL 150 MG CAPS 1 twice a day RANITIDINE HCL 89556085859 Active Lynda Xiao LPN Active LINZESS 290 MCG CAPS Take one by mouth daily LINACLOTIDE 47753892257 No Longer Active Vishal Hui MD Active SAPHRIS 5 MG SUBL 1 tab po qd ASENAPINE MALEATE 66511055033 No Longer Active Vishal Hui MD Active ZALEPLON 10 MG CAPS 1 cap po every other night ZALEPLON 02014217547 No Longer Active Vishal Hui MD Active LYRICA 50 MG CAPS 1 tab po TID PREGABALIN 24143864367 No Longer Active Vishal Hui MD Active LORATADINE 10 MG TABS 1 tab po qd LORATADINE 48897101439 No Longer Active Vishal Hui MD Active VERAPAMIL HCL ER 180 MG CR-TABS 1 tab po bid VERAPAMIL HCL 61786123539 No Longer Active Vishal Hui MD Active MIRALAX POWD 1 capfull once daily POLYETHYLENE GLYCOL 3350 10971509145 No Longer Active Vishal Hui MD Active PREDNISONE 20 MG TABS 1 tab po qd PREDNISONE 61366849875 No Longer Active Renzo Thornton DO Active LEVOFLOXACIN 500 MG TABS 1 tab po qd LEVOFLOXACIN 71362735986 No Longer Active Renzo Thornton DO Active BUSPIRONE HCL 15 MG TABS 1 tab po TID BUSPIRONE HCL 44218757485 No Longer Active Renzo Thornton DO Active BENZTROPINE MESYLATE 1 MG TABS 1 tab po qd BENZTROPINE MESYLATE 98892183818 No Longer Active Renzo Thornton DO Active ATENOLOL 25 MG TABS 1 tab po qd ATENOLOL 49242993218 No Longer Active Renzo Thornton DO Active ESCITALOPRAM OXALATE 20 MG TABS 1 tab po qd ESCITALOPRAM OXALATE 81539989109 No Longer Active Renzo Thornton DO Active ADVAIR DISKUS 250-50 MCG/DOSE AEPB 1 puff BID FLUTICASONE-SALMETEROL 79519884168 No Longer Active Renzo Thornton DO Active PREDNISONE 20 MG TAB 2 tabs daily for 3 days, 1 tab daily for 3 days, 1/2 tab daily for 2 days PREDNISONE 41289865717 No Longer Active Vishal Hui MD Active CEFDINIR 300 MG CAPS by mouth twice a day CEFDINIR 50077687624 No Longer Active Vishal Hui MD Active LANSOPRAZOLE 30 MG CPDR 1 cap po qd LANSOPRAZOLE 28470550723 No Longer Active Vishal Hui MD Active BACLOFEN 20 MG TABS 1 tab po tid BACLOFEN 20097309872 No Longer Active Vishal Hui MD Active ADVAIR DISKUS 250-50 MCG/DOSE AEPB 1 puff BID ADVAIR DISKUS 250-50 MCG/DOSE AEPB FLUTICASONE-SALMETEROL Inactive ESCITALOPRAM OXALATE 20 MG TABS 1 tab po qd ESCITALOPRAM OXALATE 20 MG TABS 977900 ESCITALOPRAM OXALATE Inactive ATENOLOL 25 MG TABS 1 tab po qd ATENOLOL 25 MG TABS 903690 ATENOLOL Inactive BENZTROPINE MESYLATE 1 MG TABS 1 tab po qd BENZTROPINE MESYLATE 1 MG TABS 361585 BENZTROPINE MESYLATE Inactive BUSPIRONE HCL 15 MG TABS 1 tab po TID BUSPIRONE HCL 15 MG TABS 992523 BUSPIRONE HCL Inactive LEVOFLOXACIN 500 MG TABS 1 tab po qd LEVOFLOXACIN 500 MG TABS 297745 LEVOFLOXACIN Inactive PREDNISONE 20 MG TABS 1 tab po qd PREDNISONE 20 MG TABS 582825 PREDNISONE Inactive MIRALAX POWD 1 capfull once daily MIRALAX POWD 577053 POLYETHYLENE GLYCOL 3350 Inactive VERAPAMIL HCL ER 180 MG CR-TABS 1 tab po bid VERAPAMIL HCL ER 180 MG CR-TABS VERAPAMIL HCL Inactive LORATADINE 10 MG TABS 1 tab po qd LORATADINE 10 MG TABS 025320 LORATADINE Inactive LYRICA 50 MG CAPS 1 tab po TID LYRICA 50 MG CAPS PREGABALIN Inactive ZALEPLON 10 MG CAPS 1 cap po every other night ZALEPLON 10 MG CAPS 391188 ZALEPLON Inactive SAPHRIS 5 MG SUBL 1 tab po qd SAPHRIS 5 MG SUBL ASENAPINE MALEATE Inactive TRAZODONE HCL 50 MG TABS 1/2 tab po qd prn for anxiety TRAZODONE HCL 50 MG TABS 361114 TRAZODONE HCL Inactive LATUDA 20 MG TABS Take one by mouth daily LATUDA 20 MG TABS LURASIDONE HCL Inactive LISINOPRIL 20 MG TABS 1 tab po qd LISINOPRIL 20 MG TABS 542695 LISINOPRIL Inactive SAPHRIS 10 MG SUBL 1 [...] twice daily BACTRIM DS 800-160 MG TAB 846793 TRIMETHOPRIM-SULFAMETHOXAZOLE Inactive MULTIVITAMINS CAPS Take one by mouth daily MULTIVITAMINS CAPS MULTIPLE VITAMIN Inactive MELATONIN 3 MG CAPS 2 po q hs MELATONIN 3 MG CAPS 354506 MELATONIN Inactive KEFLEX 500 MG ORAL CAPS 1 cap QID by mouth KEFLEX 500 MG ORAL CAPS 441660 CEPHALEXIN Inactive CLINDAMYCIN HCL 150 MG CAPS 1 four times a day CLINDAMYCIN HCL 150 MG CAPS 539789 CLINDAMYCIN HCL Inactive DIFLUCAN 150 MG TAB 1 tablet by mouth daily DIFLUCAN 150 MG TAB 114623 FLUCONAZOLE Inactive PROZAC 20 MG CAP Take one by mouth daily PROZAC 20 MG CAP 542119 FLUOXETINE HCL Inactive IBUPROFEN 600 MG TAB 1 po TID PRN IBUPROFEN 600 MG TAB 912019 IBUPROFEN Inactive VYVANSE 40 MG CAPS 1 daily, VYVANSE 40 MG CAPS LISDEXAMFETAMINE DIMESYLATE Inactive TRAZODONE HCL 100 MG TAB take 1 at bedtime TRAZODONE HCL 100 MG TAB 474124 TRAZODONE HCL Inactive AMITRIPTYLINE HCL 100 MG TAB one at hs AMITRIPTYLINE HCL 100 MG TAB 509870 AMITRIPTYLINE HCL Inactive AMLODIPINE BESYLATE 5 MG TABS 1 tablet by mouth daily AMLODIPINE BESYLATE 5 MG TABS 635930 AMLODIPINE BESYLATE Inactive LATUDA 80 MG TABS Take one by mouth daily LATUDA 80 MG TABS LURASIDONE HCL Inactive SAPHRIS 5 MG SUBL 1 po bid SAPHRIS 5 MG SUBL ASENAPINE MALEATE Inactive PREDNISONE 20 MG TAB 2 tabs daily for 4 days, 1 tab daily for 4 days, 1/2 tab daily for 4 days PREDNISONE 20 MG TAB 386511 PREDNISONE Inactive AMBIEN 5 MG ORAL TABS 1 tab at bedtime AMBIEN 5 MG ORAL TABS 553447 ZOLPIDEM TARTRATE Inactive PROZAC 20 MG ORAL CAPS 1 tab daily PROZAC 20 MG ORAL CAPS 866614 FLUOXETINE HCL Inactive ABILIFY 15 MG ORAL TABS 1 tab daily ABILIFY 15 MG ORAL TABS 233033 ARIPIPRAZOLE Inactive METOPROLOL TARTRATE 50 MG TAB 1 po bid METOPROLOL TARTRATE 50 MG TAB 904966 METOPROLOL TARTRATE Inactive TRAMADOL HCL 50 MG TABS 1-2 po TID PRN Pain TRAMADOL HCL 50 MG TABS 223080 TRAMADOL HCL Inactive PIROXICAM 20 MG CAPS 1 cap po qd PRN Pain PIROXICAM 20 MG CAPS 592230 PIROXICAM Inactive MINIPRESS 2 MG CAPS 4 cap po at night MINIPRESS 2 MG CAPS 499239 PRAZOSIN HCL Inactive MIRALAX PACK 1 po qd PRN Constipation MIRALAX PACK 245011 POLYETHYLENE GLYCOL 3350 Inactive METOPROLOL TARTRATE 25 MG ORAL TABS 1/2 tablet twice daily for heart rate and blood pressure METOPROLOL TARTRATE 25 MG ORAL TABS 718774 METOPROLOL TARTRATE Inactive VALIUM 5 MG TAB Take 1-2 tablets daily VALIUM 5 MG TAB 043168 DIAZEPAM Inactive FLAGYL 500 MG TAB 1 tablet by mouth bid FLAGYL 500 MG TAB 687167 METRONIDAZOLE Inactive DICLOFENAC POTASSIUM TABS Take 1 tablet twice a day (pt. is not sure of the dose.) DICLOFENAC POTASSIUM TABS DICLOFENAC POTASSIUM TABS Inactive ZITHROMAX Z-EARNEST 250 MG TABS 2 today and then 1 daily for 4 days ZITHROMAX Z-EARNEST 250 MG TABS 4117360 AZITHROMYCIN Inactive PREDNISONE 20 MG TABS 2 daily for 5 days then 1 daily for 5 days PREDNISONE 20 MG TABS 513768 PREDNISONE Inactive PROAIR HFA 108 (90 BASE) MCG/ACT AERS 2 puffs four times a day as needed 2015 PROAIR HFA 108 (90 BASE) MCG/ACT AERS ALBUTEROL SULFATE Inactive HYDROCODONE-ACETAMINOPHEN 5-325 MG TABS 1 to 2 four times a day as needed for pain use until can be seen by specialist HYDROCODONE- ACETAMINOPHEN 5-325 MG TABS 288390 HYDROCODONE-ACETAMINOPHEN Inactive TESSALON PERLES 100 MG CAP 1 to 2 tablets by mouth 3 times daily as needed for cough TESSALON PERLES 100 MG CAP 796333 BENZONATATE Inactive CHANTIX STARTING MONTH EARNEST 0.5 [...] Pain 2015 DICLOFENAC SODIUM 50 MG TBEC 137641 DICLOFENAC SODIUM Inactive TOPAMAX 50 MG ORAL TABS 1 tab twice daily TOPAMAX 50 MG ORAL TABS 763411 TOPIRAMATE Inactive VIIBRYD 10 MG ORAL TABS Take 1 tablet once a day VIIBRYD 10 MG ORAL TABS VILAZODONE HCL Inactive LEVOFLOXACIN 500 MG ORAL TABS po daily LEVOFLOXACIN 500 MG ORAL TABS 538048 LEVOFLOXACIN Inactive METHYLPREDNISOLONE 4 MG ORAL TABS po daily METHYLPREDNISOLONE 4 MG ORAL TABS 306886 METHYLPREDNISOLONE Inactive OXYCODONE HCL ER 10 MG ORAL T12A 1/2 tab by mouth every 4 hours prn OXYCODONE HCL ER 10 MG ORAL T12A OXYCODONE HCL Inactive FLAGYL 500 MG TAB 1 tablet by mouth bid FLAGYL 500 MG TAB 050003 METRONIDAZOLE Inactive MONISTAT 7 COMBO PACK WOODROW 100 & 2 MG-% (9GM) VAG KIT 1 applicatorful per vagina q pm x 7 MONISTAT 7 COMBO PACK WOODROW 100 & 2 MG-% (9GM) VAG KIT MICONAZOLE NITRATE Inactive BACTRIM DS 800-160 MG TABS 1 twice a day BACTRIM DS 800-160 MG TABS 516800 SULFAMETHOXAZOLE-TRIMETHOPRIM Inactive TRAMADOL HCL 50 MG TABS 1/2-1 tab TID PRN TRAMADOL HCL 50 MG TABS 945912 TRAMADOL HCL Inactive ABILIFY MAINTENA 400 MG IM SUSR 400mg injection every 26 days ABILIFY MAINTENA 400 MG IM SUSR ARIPIPRAZOLE Inactive KLONOPIN 1 MG ORAL TABS 1 tab po TID KLONOPIN 1 MG ORAL TABS 079287 CLONAZEPAM Inactive ADVAIR DISKUS 250-50 MCG/DOSE INH AEPB 1 puff twice a day for asthma ADVAIR DISKUS 250-50 MCG/DOSE INH AEPB FLUTICASONE- SALMETEROL Inactive BENADRYL 25 MG CAP 4 po at bedtime for insomnia BENADRYL 25 MG CAP DIPHENHYDRAMINE HCL Inactive PREDNISONE 20 MG TABS 2 daily for 5 days then 1 daily for 5 days PREDNISONE 20 MG TABS 666089 PREDNISONE Inactive HYDROCODONE-ACETAMINOPHEN 5-325 MG ORAL TABS 1 tab two times a day HYDROCODONE-ACETAMINOPHEN 5-325 MG ORAL TABS 736721 HYDROCODONE-ACETAMINOPHEN Inactive ZITHROMAX Z-EARNEST 250 MG TABS 2 today and then 1 daily for 4 days ZITHROMAX Z-EARNEST 250 MG TABS 9793678 AZITHROMYCIN Inactive GUAIFENESIN-CODEINE 100-10 MG/5ML SYRP 5ml every 4 to 6 hours as needed for cough GUAIFENESIN-CODEINE 100-10 MG/5ML SYRP 805546 GUAIFENESIN-CODEINE Inactive HALOPERIDOL 10 MG ORAL TABS 1 tab q.d HALOPERIDOL 10 MG ORAL TABS 403654 HALOPERIDOL Inactive ASPIRIN 325 MG ORAL TABS 1 tab q.d ASPIRIN 325 MG ORAL TABS 292946 ASPIRIN Inactive FLUTICASONE PROPIONATE 50 MCG/ACT SUSP 2 sprays each nostril daily before bed. FLUTICASONE PROPIONATE 50 MCG/ACT SUSP 8417329 FLUTICASONE PROPIONATE Inactive ZOFRAN 4 MG TABS 1 po q6hr PRN Nausea ZOFRAN 4 MG TABS 647726 ONDANSETRON HCL Inactive KEFLEX 500 MG CAP 1 po qid KEFLEX 500 MG CAP 598911 CEPHALEXIN Inactive ACETAMINOPHEN-CODEINE 120-12 MG/5ML SOLN 5 ml by mouth every 4-6 hours if needed for cough ACETAMINOPHEN-CODEINE 120-12 MG/5ML SOLN 208899 ACETAMINOPHEN-CODEINE Inactive PREDNISONE 20 MG TAB 1 tablet daily x 4 days PREDNISONE 20 MG TAB 477465 PREDNISONE Inactive TROPICAMIDE 0.5 % OPHTH SOLN 1 drop PRN eye spasms TROPICAMIDE 0.5 % OPHTH SOLN 114939 TROPICAMIDE Inactive LEVAQUIN 500 MG TABS 1 daily for infection LEVAQUIN 500 MG TABS 811594 LEVOFLOXACIN Inactive PREDNISONE 10 MG TABS 2 daily for 5 days then 1 daily for 5 days PREDNISONE 10 MG TABS 710714 PREDNISONE Inactive EQ NICOTINE 21 MG/24HR TRANS [...] twice a day CEFDINIR 300 MG CAPS 429394 CEFDINIR Inactive PREDNISONE 20 MG TAB 2 tabs daily for 3 days, 1 tab daily for 3 days, 1/2 tab daily for 2 days PREDNISONE 20 MG TAB 408306 PREDNISONE Inactive BACTRIM DS 800-160 MG TABS 1 po BID x 7 days BACTRIM DS 800-160 MG TABS 19820521 SULFAMETHOXAZOLE-TRIMETHOPRIM Inactive DIFLUCAN 150 MG TABS 1 pill every other day x 2 doses DIFLUCAN 150 MG TABS 451585 FLUCONAZOLE Inactive BACTRIM DS 800-160 MG TABS 1 pill by mouth twice daily BACTRIM DS 800-160 MG TABS 19820521 SULFAMETHOXAZOLE-TRIMETHOPRIM Inactive KEFLEX 500 MG CAP 1 po TID x 10 days KEFLEX 500 MG CAP 520542 CEPHALEXIN Inactive Advance Directives Directive Description Start [...] % 11.0-15.0 platelet count 443 THOUSAND/UL 10*3/mm3 384-583 6807/03/01 mean platelet volume 8.2 fL 7.5-12.5 leukocyte [...] % 11.0-15.0 platelet count 349 THOUSAND/UL 10*3/mm3 219-459 8137/04/12 mean platelet volume 8.4 fL 7.5-12.5 Lab [...] 369 10^3/MM^3 10*3/mm3 142-424 Lab Report: Chlamydia/GC [id number] - Lab chlamydia DNA probe NOT DETECTED NOT DETECTED Lab Report: Chlamydia/GC [id number] - Microbiology Neisseria gonorrhoeae DNA probe NOT DETECTED NOT DETECTED Lab Report: Chlamydia/GC APTIMA/08056, Urinalysis, Complete, with Reflex ... - Lab chlamydia DNA probe NOT DETECTED NOT DETECTED Lab Report: Chlamydia/GC APTIMA/74355, Urinalysis, Complete, with Reflex ... - Microbiology Neisseria gonorrhoeae DNA probe NOT DETECTED NOT DETECTED Lab Report: Chlamydia/GC APTIMA/94750, Urinalysis, Complete, with Reflex ... - Urinalysis microalbumin/total urine volume 2 mg/L Units converted. See lab report for original value. microalbumin/creatinine ratio, urine 9 MCG/MG CREAT mg/L <30 Lab Report: Comp. Metabolic Panel - Chemistry sodium, serum 140 mmol/L [id number] 5622/08/08 carbon dioxide, venous blood 33.7 mmol/L 21.0-32.0 [...] mg/dL Encounters Code Encounter Date Provider Facility CPT-87649 Level 4 Est. Patient 10:49:34 CDT [facility] CPT-10117 Level 3 Est. Patient 10:00:25 CDT [facility] CPT-32112 Level 3 Est. [facility] 10:29:30 [facility] Level 3 Est. Patient 11:04:38 CDT Renzo Thornton [facility] CPT-57114 Level 3 Est. Patient 11:15:58 MOVEMENT THERAPIST Renzo Thornton [facility] CPT-70946 Level 3 Est. Patient 15:28:23 MOVEMENT THERAPIST [facility] CPT-02106 Level 4 Est. Patient 10:20:54 MOVEMENT THERAPIST [facility] CPT-04207 Level 3 Est. Patient 11:47:37 MOVEMENT THERAPIST Ahmet Carbajal MD [facility] CPT-23368 Level 3 Est. Patient 10:40:11 MOVEMENT THERAPIST Ahmet Carbajal MD [facility] CPT-61810 Level 3 Est. Patient 15:07:06 MOVEMENT THERAPIST Neeraj Collins MD [facility] CPT-25775 Level 4 Est. Patient 14:45:00 MOVEMENT THERAPIST Ahmet Carbajal MD [facility] CPT-41734 Level 3 Est. Patient 13:59:59 CDT [facility] CPT-00580 Level 3 Est. Patient 18:18:53 CDT Neeraj Collins MD [facility] CPT-06063 Level 3 Est. Patient 15:50:44 CDT Vishal Hui MD [facility] CPT-52358 Level 3 Est. Patient 11:36:17 CDT Ahmet Carbajal MD [facility] CPT-30462 Level 3 Est. Patient 13:29:16 CDT Vishal Hui MD [facility] CPT-56751 Level 3 Est. Patient 14:27:52 CDT Neeraj Collins MD [facility] CPT-02734 Level 3 Est. Patient 08:56:03 CDT [facility] CPT-78822 Level 4 Est. Patient 12:11:48 CDT [facility] CPT-59443 Level 3 New Patient 16:53:37 CDT Albert Caldera MD [facility] CPT-65758 Level 3 Est. Patient 11:25:49 CDT Renzo Thornton DO [facility] CPT-88109 Level 3 Est. Patient 15:22:01 CDT Ahmet Carbajal MD [facility] CPT-95868 Level 4 Est. Patient 09:00:51 MOVEMENT THERAPIST Vishal Hui MD [facility] CPT-07081 Level 3 Est. Patient 11:37:33 MOVEMENT THERAPIST Vishal Hui MD [facility] CPT-55541 Level 3 Est. Patient 08:41:09 MOVEMENT THERAPIST Vishal Hui MD [facility] CPT-05535 Level 4 Est. Patient 10:19:35 MOVEMENT THERAPIST Vishal Hui MD [facility] CPT-51015 Level 3 Est. Patient 13:35:45 CDT Vishal Hui MD [facility] CPT-79734 Level 4 Est. Patient 10:08:37 CDT Vishal Hui MD [facility] CPT-27136 Level 3 Est. Patient 11:22:10 CDT Vishal Hui MD [facility] CPT-93252 Level 3 Est. Patient 11:03:32 CDT Sahara Rodriguez MD [facility]-56484 Level 3 Est. Patient 09:41:35 CDT Vishal Hui MD [facility]-21327 Level 3 Est. Patient 12:00:41 CDT Neeraj Collins MD [facility]-45286 Level 3 Est. Patient 09:16:24 CDT Vishal Hui MD [facility] CPT-54055 Level 4 Est. Patient 13:59:09 CDT Neeraj Collins MD [facility] CPT-68470 Level 3 Est. Patient 15:19:43 CDT Renzo Thornton DO [facility] CPT-63160 Level 3 Est. Patient 18:10:26 CDT Sahara Rodriguez MD [facility]-60496 Level 3 Est. Patient 14:49:50 CDT Vishal Hui MD [facility] CPT-24777 Level 4 Est. Patient 18:41:46 CDT Neeraj Collins MD [facility] CPT-09114 Level 4 Est. Patient 09:18:38 MOVEMENT THERAPIST Vishal Hui MD [facility]-14246 Level 3 Est. Patient 14:43:55 MOVEMENT THERAPIST Vishal Hui MD [facility] CPT-69872 Level 3 Est. Patient 15:26:33 MOVEMENT THERAPIST Sahara Rodriguez MD [facility] [place] Level 3 Est. Patient 10:32:14 MOVEMENT THERAPIST Vishal Hui MD [facility] CPT-31423 Level 3 Est. Patient 15:12:52 MOVEMENT THERAPIST Vishal Hui MD [facility] CPT-72337 Level 4 Est. Patient 09:19:27 CDT Vishal Hui MD [facility] CPT-30769 Level 3 Est. Patient 15:53:00 CDT Renzo Thornton [facility] CPT-30481 Level 3 Est. Patient 15:50:30 CDT Renzo Thornton [facility] CPT-96295 Level 3 Est. Patient 16:55:24 CDT Vishal Hui MD [facility] Procedures Code Procedure Name Date Entry Date Standard Description CPT-44926 Venipuncture Draw Fee 08:41:12 CDT CPT-32066 Abd compl w upright - XRAY USE ONLY 10:27:59 CDT 06/28 CPT-05757 Smoking Cessation counseling 11:15:58 MOVEMENT THERAPIST CPT-G0439 [facility] Annual Wellness Exam 09:30:58 MOVEMENT THERAPIST CPT-00682 TSH - LAB USE ONLY 08:50:26 MOVEMENT THERAPIST CPT-51538 CBC - LAB USE ONLY 08:50:26 MOVEMENT THERAPIST CPT-20231 Venipuncture Draw Fee 08:50:26 MOVEMENT THERAPIST CPT-42539 Abx/Therapy Injection 17:34:30 MOVEMENT THERAPIST CPT-30663 Nexplanon Removal with Reinsertion 14:09:32 CDT CPT-J7307 Nexplanon (Implant) 14:09:32 CDT CPT-OV Office Visit 14:09:32 CDT CPT-24908 UA w micro - LAB USE ONLY 16:21:13 CDT CPT-63298 Wet Mount - LAB USE ONLY 16:21:13 CDT CPT-74839 First Vx - Ix admin for Medicare patients 14:37:47 CDT CPT-08179 Fluzone Preservative Free Intramuscular Suspension 14:37 :47 CDT CPT-87164 Abx/Therapy Injection 13:54:22 CDT CPT-94979 Abx/Therapy Injection 08:47:09 CDT CPT-53522 Abx/Therapy Injection 13:29:56 CDT CPT-96687 Abx/Therapy Injection 08:36:16 CDT CPT-03860 [place] - LAB USE ONLY 17:44:58 CDT CPT-00640 UA w micro - LAB USE ONLY 17:44:58 CDT CPT-94088 CMP - LAB USE ONLY 17:44:58 CDT CPT-62162 Venipuncture Draw Fee 17:44:58 CDT CPT-29346 Cervical Min 4V - XRAY USE ONLY 09:01:40 CDT CPT-93073 Chest 2V Frontal and Lat - XRAY USE ONLY 11:06:31 CDT CPT-32607 EKG Trac and Interp - XRAY USE ONLY 11:31:43 CDT 08/26 CPT-J3420 Vitamin B12 1000mcg (Cyanocobalamin) 08:10:26 MOVEMENT THERAPIST 04/12 CPT-90568 Abx/Therapy Injection 08:10:26 MOVEMENT THERAPIST CPT-G0438 Initial Annual Wellness Exam 19:01:01 MOVEMENT THERAPIST CPT-J3420 Vitamin B12 1000mcg (Cyanocobalamin) 16:57:46 CDT 08/14 CPT-40680 Recombivax HB Injection Suspension 5 MCG/0.5ML 08:37:50 MOVEMENT THERAPIST CPT-01581 Immunization Single Admin 08:37:50 MOVEMENT THERAPIST CPT-J3420 Vitamin B12 1000mcg (Cyanocobalamin) 08:32:16 MOVEMENT THERAPIST 03/11 CPT-45145 Abx/Therapy Injection 08:32:16 MOVEMENT THERAPIST CPT-93007 Chest 2V Frontal and Lat 11:46:38 MOVEMENT THERAPIST CPT-75243 Venipuncture Draw Fee 09:12:45 MOVEMENT THERAPIST CPT-J3420 Vitamin B12 1000mcg (Cyanocobalamin) 08:50:15 MOVEMENT THERAPIST 02/08 CPT-65527 Abx/Therapy Injection 08:50:15 MOVEMENT THERAPIST CPT-Cryo Cryotherapy 10:19:35 MOVEMENT THERAPIST CPT-000 Give Appropriate Flu Vaccine 09:22:16 CDT CPT-J3420 Vitamin B12 1000mcg (Cyanocobalamin) 19:08:57 CDT 01/11 CPT-85502 Abx/Therapy Injection 19:08:57 CDT CPT-J3420 Vitamin B12 1000mcg (Cyanocobalamin) 08:19:08 CDT 12/11 CPT-78219 Abx/Therapy Injection 08:19:08 CDT CPT-J3420 Vitamin B12 1000mcg (Cyanocobalamin) 14:48:00 CDT 11/09 CPT-23885 Abx/Therapy Injection 14:47:59 CDT CPT-J3420 Vitamin B12 1000mcg (Cyanocobalamin) 08:34:04 CDT 10/09 CPT-77817 Abx/Therapy Injection 08:34:04 CDT CPT-J3420 Vitamin B12 1000mcg (Cyanocobalamin) 09:18:52 CDT 09/11 CPT-98044 Abx/Therapy Injection 09:18:52 CDT CPT-J3420 Vitamin B12 1000mcg (Cyanocobalamin) 08:35:44 CDT 09/04 CPT-88288 Abx/Therapy Injection 08:35:44 CDT CPT-46548 Immunization Single Admin 11:07:16 CDT CPT-33992 Hepatitis B adult IM 11:07:16 CDT CPT-J3420 Vitamin B12 1000mcg (Cyanocobalamin) 11:00:49 CDT 08/28 CPT-J1040 Depo Medrol 80 mg (Methyl Prednisolone Acetate) 11:00: 49 CDT CPT-37587 Abx/Therapy Injection 11:00:49 CDT CPT-J1040 Depo Medrol 80 mg (Methyl Prednisolone Acetate) 09:16: 23 CDT CPT-J3420 Vitamin B12 1000mcg (Cyanocobalamin) 08:27:05 CDT 08/20 CPT-65264 Abx/Therapy Injection 08:27:05 CDT CPT-03402 Recombivax HB Injection Suspension 5 MCG/0.5ML 10:00:41 CDT CPT-01391 Administration single or combination vaccine inc oral 10 :00:41 CDT CPT-93480 Sono transvag pelvis non OB uterus ovaries cervix 16:36: 57 CDT CPT-10935 LS spine comp w obliq 09:50:55 MOVEMENT THERAPIST CPT-01824 Abd compl w upright 09:50:55 MOVEMENT THERAPIST CPT-J1100 Decadron 4mg (Dexamethasone) 15:51:24 MOVEMENT THERAPIST CPT-J1030 Depo Medrol 40 mg (Methyl Prednisolone Acetate) 15:51: 24 MOVEMENT THERAPIST CPT-13442 Abx/Therapy Injection 15:51:24 MOVEMENT THERAPIST CPT-J1100 Decadron 4mg (Dexamethasone) 15:26:33 MOVEMENT THERAPIST CPT-J1030 Depo Medrol 40 mg (Methyl Prednisolone Acetate) 15:26: 33 MOVEMENT THERAPIST CPT-00687 Sono retroperitoneal complete kidneys and bladder 17:15: 30 CDT CPT-46775 Abd compl w upright 16:09:25 CDT CPT-J1100 Decadron 8mg (Dexamethasone) 17:07:57 CDT CPT-65614 Abx/Therapy Injection 17:07:57 CDT CPT-J1100 Decadron 8mg (Dexamethasone) 16:55:24 CDT CPT-31939 Chest 2V Frontal and Lat 16:32:44 CDT
--- OUTSIDE RECORDS SUMMARY | 2016-11-04 18:27 | XMS REPORT ---
Author Author [facility] Medical Staff Organization [facility] Address [address] [place], [place] [id number] Phone [phone] Summary purpose TRANSITION OF CARE AUTO GENERATION [...] tests and/or laboratory data RESULTS Routine Urinalysis 30-88-761611:48:00 Result Normal Range Units Color YELLOW Clarity Clear Specific [place] 1.010 1.003-1.035 pH 7.5 4.5-8.0 Glucose NEGATIVE Bilirubin NEGATIVE Ketones NEGATIVE Protein NEGATIVE Urobilinogen 0.2 0-0.2 E.U./dL Nitrites NEGATIVE Blood NEGATIVE Leukocytes NEGATIVE WBCs 0-5 RBCs No RBC's Seen. Squamous Epithelial 1+ Bacteria Occasional Mucous Rare Amount Chemistry 33-18-017462:22:00 Result Normal Range Units Sodium 137 134-145 mEq/l Potassium 4.0 3.5-5.1 mEq/l Chloride 103 98-107 mEq/l CO2 26.4 22-28 mEq/l Glucose H 109 70-105 mg/dl BUN 12 7-18 mg/dl Creatinine 0.82 0.6-1.0 mg/dl Calcium 9.0 8.4-10.2 mg/dl TP - Total Protein 7.3 6.0-8.3 g/dl Albumin 3.9 3.5-5 g/dl Bilirubin - Total 0.3 0.1-1.0 mg/dl AST 31 10-42 IU/L ALT 60 12-65 IU/L ALP H 94 25-72 IU/L Osmolality L 274.2 280-300 mOsm/L Albumin/Globulin Ratio 1.1 0-8 Anion GAP L 7.6 8-16 BUN/Creatinine Ratio 14.6 10-20 Estimated GFR 83 >=60 mL/min/1.7 Hematology :22:00 Result Normal Range Units WBC 10.2 4.8-10.8 103/uL RBC 4.6 4.2-5.4 106/uL HGB 14.3 12.0-16.0 g/dl HCT 42.2 36.9-47.0 % MCV 91.5 81-99 FL MCH 31.0 27-31 pg MCHC 33.9 33-37 g/dl RDW 12.5 11.5-15.5 % PLT 351 130-400 103/uL MPV 10.2 7.3-10.4 FL Neutro % 61.8 40-70 % Lymph % 27.9 20-40 % [place] % 7.8 0-10.0 % Eos % 1.8 0-7.0 % Baso % 0.4 0-2 % Neutro # 6.3 1.5-7.5 103/uL Lymph # 2.8 0.9-4.0 103/uL [place] # 0.8 0-0.8 103/uL Eos # 0.2 0-0.6 103/uL Baso # 0.0 0-0.1 103/uL Body Fluid :48:00 Result Normal Range Units pH 7.5 4.5-8.0 Cardiac :03:00 Result Normal Range Units Troponin I < 0.02 0.0-0.4 ng/ml Patient [...] patient history should be interpreted with caution. 43-44-245113:22:00 Result Normal Range Units CK 104 26-192 IU/L Troponin I < 0.02 0.0-0.4 ng/ml Patient [...] should be interpreted with caution. Radiology Results 07-08-171712:58:00 Chest X-Ray - 2 View PACs Image DATE OF EXAM: Sep 12 2015 RAD 0300-CHEST XRAY 2 VIEW : RADIOLOGY REPORT DATE OF SERVICE: 09/12/15 HISTORY: Chest pain CHEST 2 VIEWS 1550 HOURS Comparison is made with 08/06/2015. The lungs are clear. Heart size and pulmonary vessels are normal. There are no hilar abnormalities. No change has occurred since 08/06/2015. IMPRESSION: Negative chest. MD SOLEDAD Mays/ak09/13/2015 08:26:00 / 09/13/2015 09:01:43 cc: This document has been electronically Signed by: On: DATE OF EXAM: Sep 12 2015 RAD 0300-CHEST XRAY 2 VIEW : RADIOLOGY REPORT DATE OF SERVICE: 09/12/15 HISTORY: Chest pain CHEST 2 VIEWS 1550 HOURS Comparison is made with 08/06/2015. The lungs are clear. Heart size and pulmonary vessels are normal. There are no hilar abnormalities. No change has occurred since 08/06/2015. IMPRESSION: Negative chest. MD SOLEDAD Mays/murtaza09/13/2015 08:26:00 / 09/13/2015 09:01:43 cc: This document has been electronically Signed by: ELAN MAHAN MD On: Sep 13 2015 12:58P Result Amended on 2015-09-13 at 12:58:33. Previous status was CT. 07-70-113659:22:00 Result Normal Range Units MPV 10.2 7.3-10.4 FL History of procedures Procedure Code Code Type Description Date Performed Performing Physician 92552 CPT-4 ROUTINE VENIPUNCTURE 09-12-2015 MERT KELLY 70448 CPT-4 ROUTINE VENIPUNCTURE 09-12-2015 MERT KELLY 63235 CPT-4 CHEST X-RAY 09-12-2015 MERT KELLY 76669 CPT-4 COMPREHEN METABOLIC PANEL 09-12-2015 MERT KELLY 17037 CPT-4 URINALYSIS, AUTO W/SCOPE 09-12-2015 MERT KELLY 02780 CPT-4 ASSAY OF CK (CPK) 09-12-2015 MERT KELLY 87344 CPT-4 ASSAY OF TROPONIN, QUANT 09-12-2015 MERT KELLY 23005 CPT-4 ASSAY OF TROPONIN, QUANT 09-12-2015 MERT KELLY 95492 CPT-4 COMPLETE CBC W/AUTO DIFF WBC 09-12-2015 MERT KELLY 43325 CPT-4 ELECTROCARDIOGRAM, TRACING 09-12-2015 MERT KELLY A9270 CPT-4 NON-COVERED ITEM OR SERVICE 09-12-2015 MERT KELLY J7030 CPT-4 NORMAL SALINE SOLUTION INFUS 09-12-2015 MERT KELLY 30101 CPT-4 EMERGENCY DEPT VISIT 09-12-2015 MERT KELLY 33793 CPT-4 EMERGENCY DEPT VISIT 09-12-2015 MERT KELLY 09983 CPT-4 THER/PROPH/DIAG INJ, IV PUSH 09-12-2015 MERT KELLY 54043 CPT-4 TX/PRO/DX INJ NEW DRUG ADDON 09-12-2015 MERT KELLY 08056 CPT-4 HYDRATE IV INFUSION, ADD-ON 09-12-2015 MERT KELLY Functional status Functional Status Finding Observation Time Abdomen Appearance obese 58-98-991728:15 Abdomen soft 21-44-287247:15 Vick no 09-80-939484:15 Urination normal 30-95-129634:15 Quality sym/unlabored 01-91-013849:15 Cough non-productive 58-88-001373:15 Secretions no 15-52-962979:15 Airway natural 13-62-857483:15 Chest Tube no :15 Oxygen no 64-92-694324:48 Temp >100.4 no :15 Temp <96.8 no 81-37-985184:15 Chills with rigors no 49-24-521827:15 HR > 90bpm yes 45-12-912975:15 Respirations > 20 no 86-41-007457:15 Systolic <90 no 67-43-638252:15 headache stiff neck no 47-78-147658:15 IV Site Location R AC 77-73-750090:20 IV Type peripheral 64-26-268949:20 IV Site Information new 65-53-288325:20 IV Site Start Attmpt 2 times 89-20-619134:20 IV Site Festus 20 29-19-141731:20 IV Site Appearance WNL 03-58-031381:20 IV Site Color clear 34-82-110491:20 IV Site Patent yes 35-37-163307:20 Dressing Changed yes :20 Dressing Type occlusive 13-29-431748:20 Nursing Note Dismissed home per Juno Kelly APRN. Disharge instructions given and understood by pt who verbalized understanding. Ambulated to exit in stable condition. :48 Vital signs Type Value Date Respiration Rate 16breaths per minute :48 Pulse 82beats per minute :48 Oxygen Saturation 100% :48 BP Systolic 98mmHg :48 BP Diastolic 64mmHg :48 Temperature 98.6F 21-16-980955:48 Social history Type Value Smoking Status CURRENT EVERY DAY SMOKER Treatment Plan No treatment plan text is available for this visit. Hospital discharge instructions Dismissal Condition good Disposition on DC home DC Inst/Educ Give yes Med/Side Effects Rev yes PNE Vac No Flu Vac 2014 Tetanus Vac 2014
--- OUTSIDE RECORDS SUMMARY | 2016-11-04 18:27 | XMS REPORT | Clinical Summary ---
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 Juliet Kimbrough ANDROID PLATFORM DEVELOPER Dependence on other enabling machines and [...] for removal of sutures ICD-V58.32 Inactive Vishal uHi MD Hot flashes ICD-627.2 Inactive Vishal Hui [...] 17GMS DAILY IN WATER POLYETHYLENE GLYCOL 3350 02939653823 Active Vishal Hui MD Active METOPROLOL TARTRATE 25 MG ORAL TABS 1/2 tablet twice daily for heart rate and blood pressure METOPROLOL TARTRATE 32180187783 Active Renzo Thornton DO Active VALIUM 5 MG TAB Take 1-2 tablets daily DIAZEPAM 98860392255 Active Ahmet Carbajal MD Active VIIBRYD 10 MG ORAL TABS Take 1 tablet once a day VILAZODONE HCL 91061013610 Active Ahmet Carbajal MD Active DICLOFENAC POTASSIUM TABS Take 1 tablet twice a day (pt. is not sure of the dose.) DICLOFENAC POTASSIUM TABS 26283499329 Active Ahmet Carbajal MD Active MIRALAX PACK 1 po qd PRN Constipation POLYETHYLENE GLYCOL 3350 76612395788 No Longer Active Ahmet Carbajal MD Active MINIPRESS 2 MG CAPS 4 cap po at night PRAZOSIN HCL 85544435585 No Longer Active Ahmet Carbajal MD Active PIROXICAM 20 MG CAPS 1 cap po qd PRN Pain PIROXICAM 01092379466 No Longer Active Ahmet Carbajal MD Active TRAMADOL HCL 50 MG TABS 1-2 po TID PRN Pain TRAMADOL HCL 52909062357 No Longer Active Ahmet Carbajal MD Active METOPROLOL TARTRATE 50 MG TAB 1 po bid METOPROLOL TARTRATE 81327161733 No Longer Active Ahmet Carbajal MD Active ABILIFY 15 MG ORAL TABS 1 tab daily ARIPIPRAZOLE 15177346526 No Longer Active Ahmet Carbajal MD Active PROZAC 20 MG ORAL CAPS 1 tab daily FLUOXETINE HCL 38118352598 No Longer Active Ahmet Carbajal MD Active AMBIEN 5 MG ORAL TABS 1 tab at bedtime ZOLPIDEM TARTRATE 76288692598 No Longer Active Ahmet Carbajal MD Active PREDNISONE 20 MG TAB 2 tabs daily for 4 days, 1 tab daily for 4 days, 1/2 tab daily for 4 days PREDNISONE 86342151669 No Longer Active Ahmet Carbajal MD Active KEFLEX 500 MG CAP 1 po TID x 10 days CEPHALEXIN 25739627722 No Longer Active Vishal Hui MD Active ABILIFY MAINTENA 400 MG IM SUSR Injection once per month ARIPIPRAZOLE 96175148774 Active Juliet ANDROID PLATFORM DEVELOPER Active IMITREX 50 MG ORAL TABS 1/2 tab every 6 hours prn SUMATRIPTAN SUCCINATE 06694388486 Active Jillina Frazell ANDROID PLATFORM DEVELOPER Active TOPAMAX 50 MG ORAL TABS 1 tab twice daily TOPIRAMATE 20636632173 Active Vishal Hui MD Active SAPHRIS 5 MG SUBL 1 po bid ASENAPINE MALEATE 36375281682 No Longer Active Jillina Mauricio NORIEGA Active LATUDA 80 MG TABS Take one by mouth daily LURASIDONE HCL 08796722675 No Longer Active Pacollina Mauricio NORIEGA Active AMLODIPINE BESYLATE 5 MG TABS 1 tablet by mouth daily AMLODIPINE BESYLATE 49014439364 No Longer Active Pacollina Mauricio NORIEGA Active AMITRIPTYLINE HCL 100 MG TAB one at hs AMITRIPTYLINE HCL 85147859466 No Longer Active Vishal Hui MD Active TRAZODONE HCL 100 MG TAB take 1 at bedtime TRAZODONE HCL 40231280902 No Longer Active Vishal Hui MD Active VYVANSE 40 MG CAPS 1 daily, LISDEXAMFETAMINE DIMESYLATE 73156712689 No Longer Active Vishal Hui MD Active IBUPROFEN 600 MG TAB 1 po TID PRN IBUPROFEN 07140898354 No Longer Active Vishal Hui MD Active PROZAC 20 MG CAP Take one by mouth daily FLUOXETINE HCL 18171524825 No Longer Active Vishal Hui MD Active ZOFRAN 4 MG TABS 1 po q6hr PRN Nausea ONDANSETRON HCL Active Vishal Hui MD Active BACTRIM DS 800-160 MG TABS 1 pill by mouth twice daily SULFAMETHOXAZOLE-TRIMETHOPRIM 26359983259 No Longer Active Sahara Rodriguez MD PhD Active DIFLUCAN 150 MG TAB 1 tablet by mouth daily FLUCONAZOLE 81257405378 No Longer Active Vishal Hui MD Active TIZANIDINE HCL 4 MG TABS 1 po q6hr PRN Muscle Spasm/Back Pain TIZANIDINE HCL 09303663592 Active Luigi Martínez ANDROID PLATFORM DEVELOPER Active CLINDAMYCIN HCL 150 MG CAPS 1 four times a day CLINDAMYCIN HCL 04062380546 No Longer Active Neeraj Collins MD Active KEFLEX 500 MG ORAL CAPS 1 cap QID by mouth CEPHALEXIN 16853167502 No Longer Active Neeraj Collins MD Active DIFLUCAN 150 MG TABS 1 pill every other day x 2 doses FLUCONAZOLE 63095393785 No Longer Active Sahara Rodriguez MD PhD Active MELATONIN 3 MG CAPS 2 po q hs MELATONIN 18548845744 No Longer Active Sahara Rodriguez MD PhD Active MULTIVITAMINS CAPS Take one by mouth daily MULTIPLE VITAMIN 46618286173 No Longer Active Sahara Rodriguez MD PhD Active BACTRIM DS 800-160 MG TAB 1 tab by mouth twice daily TRIMETHOPRIM-SULFAMETHOXAZOLE 57454513014 No Longer Active Sahara Rodriguez MD PhD Active [facility] PROBIOTIC ORAL CHEW 2 daily po PROBIOTIC PRODUCT 01926852095 No Longer Active Sahara Rodriguez MD PhD Active BACTRIM DS 800-160 MG TABS 1 po BID x 7 days SULFAMETHOXAZOLE-TRIMETHOPRIM 72786697798 No Longer Active Vishal Hui MD Active CHANTIX STARTING MONTH EARNEST 0.5 MG X 11 & 1 MG X 42 TABS 0.5mg daily for 3 days , then 0.5mg BID for 4 days, then 1mg BID VARENICLINE TARTRATE 15343397020 No Longer Active Lisette Scarrow, RMA Active VERAPAMIL HCL CR 120 MG TAB CR 1 po bid VERAPAMIL HCL 30654506780 No Longer Active Vishal Hui MD Active METOPROLOL SUCCINATE 50 MG TB24 1 tablet by mouth daily METOPROLOL SUCCINATE 98270947247 No Longer Active Vishal Hui MD Active SAPHRIS 10 MG SUBL 1 tab po bid ASENAPINE MALEATE 50938625833 No Longer Active Vishal Hui MD Active LISINOPRIL 20 MG TABS 1 tab po qd LISINOPRIL 40662353387 No Longer Active Vishal Hui MD Active BENADRYL 25 MG CAP 2 po tid prn anxiety DIPHENHYDRAMINE HCL 20043399996 Active Vishal Hui MD Active LATUDA 20 MG TABS Take one by mouth daily LURASIDONE HCL 86989361931 No Longer Active Vishal Hui MD Active TRAZODONE HCL 50 MG TABS 1/2 tab po qd prn for anxiety TRAZODONE HCL 40402357970 No Longer Active Vishal Hui MD Active OMEPRAZOLE 20 MG TBEC 1 po q a.m. 30min prior to first food intake OMEPRAZOLE 42096480675 Active Vishal Hui MD Active RANITIDINE HCL 150 MG CAPS 1 twice a day RANITIDINE HCL 02836410382 Active Jioral Martínez ANDROID PLATFORM DEVELOPER Active LINZESS 290 MCG CAPS Take one by mouth daily LINACLOTIDE 61603472744 No Longer Active Vishal Hui MD Active SAPHRIS 5 MG SUBL 1 tab po qd ASENAPINE MALEATE 59604593382 No Longer Active Vishal Hui MD Active ZALEPLON 10 MG CAPS 1 cap po every other night ZALEPLON 43609122010 No Longer Active Vishal Hui MD Active LYRICA 50 MG CAPS 1 tab po TID PREGABALIN 19513709981 No Longer Active Vishal Hui MD Active LORATADINE 10 MG TABS 1 tab po qd LORATADINE 94877736144 No Longer Active Vishal Hui MD Active VERAPAMIL HCL ER 180 MG CR-TABS 1 tab po bid VERAPAMIL HCL 12017275513 No Longer Active Vishal Hui MD Active MIRALAX POWD 1 capfull once daily POLYETHYLENE GLYCOL 3350 04969136351 No Longer Active Vishal Hui MD Active PREDNISONE 20 MG TABS 1 tab po qd PREDNISONE 29235266049 No Longer Active Renzo Thornton DO Active LEVOFLOXACIN 500 MG TABS 1 tab po qd LEVOFLOXACIN 31858417302 No Longer Active Renzo Thornton DO Active BUSPIRONE HCL 15 MG TABS 1 tab po TID BUSPIRONE HCL 54331136937 No Longer Active Renzo Thornton DO Active BENZTROPINE MESYLATE 1 MG TABS 1 tab po qd BENZTROPINE MESYLATE 52269958509 No Longer Active Renzo Thornton DO Active ATENOLOL 25 MG TABS 1 tab po qd ATENOLOL 76145265015 No Longer Active Renzo Thornton DO Active ESCITALOPRAM OXALATE 20 MG TABS 1 tab po qd ESCITALOPRAM OXALATE 57631849221 No Longer Active Renzo Thornton DO Active ADVAIR DISKUS 250-50 MCG/DOSE AEPB 1 puff BID FLUTICASONE-SALMETEROL 71364572590 No Longer Active Renzo Thornton DO Active PREDNISONE 20 MG TAB 2 tabs daily for 3 days, 1 tab daily for 3 days, 1/2 tab daily for 2 days PREDNISONE 96092980271 No Longer Active Vishal Hui MD Active CEFDINIR 300 MG CAPS by mouth twice a day CEFDINIR 36323798357 No Longer Active Vishal Hui MD Active LANSOPRAZOLE 30 MG CPDR 1 cap po qd LANSOPRAZOLE 08944320334 No Longer Active Vishal Hui MD Active BACLOFEN 20 MG TABS 1 tab po tid BACLOFEN 19362984071 No Longer Active Vishal Hui MD Active ADVAIR DISKUS 250-50 MCG/DOSE AEPB 1 puff BID ADVAIR DISKUS 250-50 MCG/DOSE AEPB FLUTICASONE-SALMETEROL Inactive ESCITALOPRAM OXALATE 20 MG TABS 1 tab po qd ESCITALOPRAM OXALATE 20 MG TABS 873965 ESCITALOPRAM OXALATE Inactive ATENOLOL 25 MG TABS 1 tab po qd ATENOLOL 25 MG TABS 387880 ATENOLOL Inactive BENZTROPINE MESYLATE 1 MG TABS 1 tab po qd BENZTROPINE MESYLATE 1 MG TABS 561972 BENZTROPINE MESYLATE Inactive BUSPIRONE HCL 15 MG TABS 1 tab po TID BUSPIRONE HCL 15 MG TABS 254516 BUSPIRONE HCL Inactive LEVOFLOXACIN 500 MG TABS 1 tab po qd LEVOFLOXACIN 500 MG TABS 826319 LEVOFLOXACIN Inactive PREDNISONE 20 MG TABS 1 tab po qd PREDNISONE 20 MG TABS 792828 PREDNISONE Inactive MIRALAX POWD 1 capfull once daily MIRALAX POWD 517552 POLYETHYLENE GLYCOL 3350 Inactive VERAPAMIL HCL ER 180 MG CR-TABS 1 tab po bid VERAPAMIL HCL ER 180 MG CR-TABS VERAPAMIL HCL Inactive LORATADINE 10 MG TABS 1 tab po qd LORATADINE 10 MG TABS 660749 LORATADINE Inactive LYRICA 50 MG CAPS 1 tab po TID LYRICA 50 MG CAPS PREGABALIN Inactive ZALEPLON 10 MG CAPS 1 cap po every other night ZALEPLON 10 MG CAPS 757757 ZALEPLON Inactive SAPHRIS 5 MG SUBL 1 tab po qd SAPHRIS 5 MG SUBL ASENAPINE MALEATE Inactive TRAZODONE HCL 50 MG TABS 1/2 tab po qd prn for anxiety TRAZODONE HCL 50 MG TABS 423116 TRAZODONE HCL Inactive LATUDA 20 MG TABS Take one by mouth daily LATUDA 20 MG TABS LURASIDONE HCL Inactive LISINOPRIL 20 MG TABS 1 tab po qd LISINOPRIL 20 MG TABS 096744 LISINOPRIL Inactive SAPHRIS 10 MG SUBL 1 [...] twice daily BACTRIM DS 800-160 MG TAB 609429 TRIMETHOPRIM-SULFAMETHOXAZOLE Inactive MULTIVITAMINS CAPS Take one by mouth daily MULTIVITAMINS CAPS MULTIPLE VITAMIN Inactive MELATONIN 3 MG CAPS 2 po q hs MELATONIN 3 MG CAPS 19950526 MELATONIN Inactive KEFLEX 500 MG ORAL CAPS 1 cap QID by mouth KEFLEX 500 MG ORAL CAPS 234283 CEPHALEXIN Inactive CLINDAMYCIN HCL 150 MG CAPS 1 four times a day CLINDAMYCIN HCL 150 MG CAPS 099590 CLINDAMYCIN HCL Inactive DIFLUCAN 150 MG TAB 1 tablet by mouth daily DIFLUCAN 150 MG TAB 185587 FLUCONAZOLE Inactive PROZAC 20 MG CAP Take one by mouth daily PROZAC 20 MG CAP 672256 FLUOXETINE HCL Inactive IBUPROFEN 600 MG TAB 1 po TID PRN IBUPROFEN 600 MG TAB 202247 IBUPROFEN Inactive VYVANSE 40 MG CAPS 1 daily, VYVANSE 40 MG CAPS LISDEXAMFETAMINE DIMESYLATE Inactive TRAZODONE HCL 100 MG TAB take 1 at bedtime TRAZODONE HCL 100 MG TAB 634579 TRAZODONE HCL Inactive AMITRIPTYLINE HCL 100 MG TAB one at hs AMITRIPTYLINE HCL 100 MG TAB 561371 AMITRIPTYLINE HCL Inactive AMLODIPINE BESYLATE 5 MG TABS 1 tablet by mouth daily AMLODIPINE BESYLATE 5 MG TABS 931895 AMLODIPINE BESYLATE Inactive LATUDA 80 MG TABS Take one by mouth daily LATUDA 80 MG TABS LURASIDONE HCL Inactive SAPHRIS 5 MG SUBL 1 po bid SAPHRIS 5 MG SUBL ASENAPINE MALEATE Inactive PREDNISONE 20 MG TAB 2 tabs daily for 4 days, 1 tab daily for 4 days, 1/2 tab daily for 4 days PREDNISONE 20 MG TAB 520548 PREDNISONE Inactive AMBIEN 5 MG ORAL TABS 1 tab at bedtime AMBIEN 5 MG ORAL TABS 123966 ZOLPIDEM TARTRATE Inactive PROZAC 20 MG ORAL CAPS 1 tab daily PROZAC 20 MG ORAL CAPS 286540 FLUOXETINE HCL Inactive ABILIFY 15 MG ORAL TABS 1 tab daily ABILIFY 15 MG ORAL TABS 986595 ARIPIPRAZOLE Inactive METOPROLOL TARTRATE 50 MG TAB 1 po bid METOPROLOL TARTRATE 50 MG TAB 032030 METOPROLOL TARTRATE Inactive TRAMADOL HCL 50 MG TABS 1-2 po TID PRN Pain TRAMADOL HCL 50 MG TABS 839817 TRAMADOL HCL Inactive PIROXICAM 20 MG CAPS 1 cap po qd PRN Pain PIROXICAM 20 MG CAPS 511989 PIROXICAM Inactive MINIPRESS 2 MG CAPS 4 cap po at night MINIPRESS 2 MG CAPS 571290 PRAZOSIN HCL Inactive MIRALAX PACK 1 po qd PRN Constipation MIRALAX PACK 506744 POLYETHYLENE GLYCOL 3350 Inactive CEFDINIR 300 MG CAPS by mouth twice a day CEFDINIR 300 MG CAPS 952919 CEFDINIR Inactive PREDNISONE 20 MG TAB 2 tabs daily for 3 days, 1 tab daily for 3 days, 1/2 tab daily for 2 days PREDNISONE 20 MG TAB 003884 PREDNISONE Inactive BACTRIM DS 800-160 MG TABS 1 po BID x 7 days BACTRIM DS 800-160 MG TABS 19820521 SULFAMETHOXAZOLE-TRIMETHOPRIM Inactive DIFLUCAN 150 MG TABS 1 pill every other day x 2 doses DIFLUCAN 150 MG TABS 846682 FLUCONAZOLE Inactive BACTRIM DS 800-160 MG TABS 1 pill by mouth twice daily BACTRIM DS 800-160 MG TABS 19820521 SULFAMETHOXAZOLE-TRIMETHOPRIM Inactive KEFLEX 500 MG CAP 1 po TID x 10 days KEFLEX 500 MG CAP 612564 CEPHALEXIN Inactive Advance Directives Directive Description Start [...] % 11.6-14.8 platelet count 394 10^3/MM^3 10*3/mm3 021-269 3359/01/11 leukocyte count, blood 13.8 10^3/MM^3 10*3/mm3 4.6-10.2 [...] Panel - Chemistry sodium, serum 139 mmol/L 273-444 0141/12/03 carbon dioxide, venous blood 28.5 mmol/L 21.0-32.0 [...] 5.5 % 4.3-6.0 cholesterol, serum 159 mg/dL 633-817 2968/12/03 triglyceride, serum, fasting 118 mg/dL 30-200 HDL [...] Panel - Chemistry sodium, serum 139 mmol/L 755-471 5912/12/22 carbon dioxide, venous blood 26.8 mmol/L 21.0-32.0 potassium, serum 4.2 mmol/L 3.5-5.2 chloride, serum 103 mmol/L 98-107 blood glucose 115 mg/dL 65-110 urea nitrogen, blood 20 mg/dL 7-18 creatinine, serum 0.90 mg/dL 0.55-1.30 alanine aminotransferase (SGPT), serum 38 U/L 12-78 aspartate aminotransferase (SGOT), serum 19 U/L 15-37 calcium, serum 8.6 mg/dL 8.5-10.1 bilirubin, serum, total 0.30 mg/dL 0.00-1.00 sodium, serum 139 mmol/L 165-981 2436/01/11 carbon dioxide, venous blood 26.6 mmol/L 21.0-32.0 potassium, serum 4.1 mmol/L 3.5-5.2 chloride, serum 100 mmol/L 98-107 blood glucose 86 mg/dL 65-110 urea nitrogen, blood 16 mg/dL 7-18 creatinine, serum 1.00 mg/dL 0.55-1.30 alanine aminotransferase (SGPT), serum 48 U/L 12-78 aspartate aminotransferase (SGOT), serum 17 U/L 15-37 calcium, serum 9.1 mg/dL 8.5-10.1 bilirubin, serum, total 0.40 mg/dL 0.00-1.00 sodium, serum 142 mmol/L 091-139 2779/06/08 carbon dioxide, venous blood 27.6 mmol/L 21.0-32.0 [...] Rate - Chemistry sodium, serum 139 mmol/L 554-561 9266/12/11 carbon dioxide, venous blood 25.4 mmol/L 21.0-32.0 [...] mg/dL Encounters Code Encounter Date Provider Facility CPT-09560 Level 3 New Patient 16:53:37 CDT Albert Caldera MD [facility] CPT-25400 Level 3 Est. Patient 11:25:49 CDT Renzo Thornton DO [facility] CPT-06902 Level 3 Est. Patient 15:22:01 CDT Ahmet Carbajal MD [facility] CPT-37405 Level 4 Est. Patient 09:00:51 STRING CUTTER Vishal Hiu MD [facility] CPT-21328 Level 3 Est. Patient 11:37:33 STRING CUTTER Vishal Hui MD [facility] CPT-68419 Level 3 Est. Patient 08:41:09 STRING CUTTER Vishal Hui MD [facility] CPT-55762 Level 4 Est. Patient 10:19:35 STRING CUTTER Vishal Hui MD [facility] CPT-77500 Level 3 Est. Patient 13:35:45 CDT Vishal Hui MD [facility] CPT-03099 Level 4 Est. Patient 10:08:37 CDT Vishal Hui MD [facility] CPT-17730 Level 3 Est. Patient 11:22:10 CDT Vishal Hui MD [facility] CPT-57157 Level 3 Est. Patient 11:03:32 CDT Sahara Rodriguez MD [facility] CPT-54653 Level 3 Est. Patient 09:41:35 CDT Vishal Hui MD [facility] CPT-64898 Level 3 Est. Patient 12:00:41 CDT Neeraj Collins MD [facility] CPT-28930 Level 3 Est. Patient 09:16:24 CDT Vishal Hui MD [facility] CPT-90865 Level 4 Est. Patient 13:59:09 CDT Neeraj Collins MD [facility] CPT-94766 Level 3 Est. Patient 15:19:43 CDT Renzo Thornton DO [facility] CPT-20148 Level 3 Est. Patient 18:10:26 CDT Sahara Rodriguez MD [facility] CPT-23456 Level 3 Est. Patient 14:49:50 CDT Vishal Hui MD [facility] CPT-44507 Level 4 Est. Patient 18:41:46 CDT Neeraj Collins MD [facility] CPT-66104 Level 4 Est. Patient 09:18:38 STRING CUTTER Vishal Hui MD [facility] CPT-27978 Level 3 Est. Patient 14:43:55 STRING CUTTER Vishal Hui MD [facility] CPT-26748 Level 3 Est. Patient 15:26:33 STRING CUTTER Sahara Rodriguez MD PhD [facility] CPT-70533 Level 3 Est. Patient 10:32:14 STRING CUTTER Vishal Hui MD [facility] CPT-20788 Level 3 Est. Patient 15:12:52 STRING CUTTER Vishal Hui MD [facility] CPT-42990 Level 4 Est. Patient 09:19:27 CDT Vishal Hui MD [facility] CPT-98183 Level 3 Est. Patient 15:53:00 CDT Renzo Thornton [facility] CPT-32292 Level 3 Est. Patient 15:50:30 CDT Renzo Thornton [facility] CPT-79113 Level 3 Est. Patient 16:55:24 CDT Vishal Hui MD [facility] Procedures Code Procedure Name Date Entry Date Standard Description CPT-31548 EKG Trac and Interp - XRAY USE ONLY 11:31:43 CDT 08/26 CPT-J3420 Vitamin B12 1000mcg (Cyanocobalamin) 08:10:26 STRING CUTTER 04/12 CPT-43788 Abx/Therapy Injection 08:10:26 STRING CUTTER CPT-G0438 Initial Annual Wellness Exam 19:01:01 STRING CUTTER CPT-J3420 Vitamin B12 1000mcg (Cyanocobalamin) 16:57:46 CDT 08/14 CPT-86361 Recombivax HB Injection Suspension 5 MCG/0.5ML 08:37:50 STRING CUTTER CPT-71284 Immunization Single Admin 08:37:50 STRING CUTTER CPT-J3420 Vitamin B12 1000mcg (Cyanocobalamin) 08:32:16 STRING CUTTER 03/11 CPT-80432 Abx/Therapy Injection 08:32:16 STRING CUTTER CPT-16855 Chest 2V Frontal and Lat 11:46:38 STRING CUTTER CPT-08174 Venipuncture Draw Fee 09:12:45 STRING CUTTER CPT-J3420 Vitamin B12 1000mcg (Cyanocobalamin) 08:50:15 STRING CUTTER 02/08 CPT-41033 Abx/Therapy Injection 08:50:15 STRING CUTTER CPT-Cryo Cryotherapy 10:19:35 STRING CUTTER CPT-000 Give Appropriate Flu Vaccine 09:22:16 CDT CPT-J3420 Vitamin B12 1000mcg (Cyanocobalamin) 19:08:57 CDT 01/11 CPT-69612 Abx/Therapy Injection 19:08:57 CDT CPT-J3420 Vitamin B12 1000mcg (Cyanocobalamin) 08:19:08 CDT 12/11 CPT-46751 Abx/Therapy Injection 08:19:08 CDT CPT-J3420 Vitamin B12 1000mcg (Cyanocobalamin) 14:48:00 CDT 11/09 CPT-08938 Abx/Therapy Injection 14:47:59 CDT CPT-J3420 Vitamin B12 1000mcg (Cyanocobalamin) 08:34:04 CDT 10/09 CPT-23683 Abx/Therapy Injection 08:34:04 CDT CPT-J3420 Vitamin B12 1000mcg (Cyanocobalamin) 09:18:52 CDT 09/11 CPT-97344 Abx/Therapy Injection 09:18:52 CDT CPT-J3420 Vitamin B12 1000mcg (Cyanocobalamin) 08:35:44 CDT 09/04 CPT-49285 Abx/Therapy Injection 08:35:44 CDT CPT-93764 Immunization Single Admin 11:07:16 CDT CPT-14843 Hepatitis B adult IM 11:07:16 CDT CPT-J3420 Vitamin B12 1000mcg (Cyanocobalamin) 11:00:49 CDT 08/28 CPT-J1040 Depo Medrol 80 mg (Methyl Prednisolone Acetate) 11:00: 49 CDT CPT-25305 Abx/Therapy Injection 11:00:49 CDT CPT-J1040 Depo Medrol 80 mg (Methyl Prednisolone Acetate) 09:16: 23 CDT CPT-J3420 Vitamin B12 1000mcg (Cyanocobalamin) 08:27:05 CDT 08/20 CPT-17875 Abx/Therapy Injection 08:27:05 CDT CPT-14938 Recombivax HB Injection Suspension 5 MCG/0.5ML 10:00:41 CDT CPT-64073 Administration single or combination vaccine inc oral 10 :00:41 CDT CPT-54762 Sono transvag pelvis non OB uterus ovaries cervix 16:36: 57 CDT CPT-54704 LS spine comp w obliq 09:50:55 STRING CUTTER CPT-44020 Abd compl w upright 09:50:55 STRING CUTTER CPT-J1100 Decadron 4mg (Dexamethasone) 15:51:24 STRING CUTTER CPT-J1030 Depo Medrol 40 mg (Methyl Prednisolone Acetate) 15:51: 24 STRING CUTTER CPT-87200 Abx/Therapy Injection 15:51:24 STRING CUTTER CPT-J1100 Decadron 4mg (Dexamethasone) 15:26:33 STRING CUTTER CPT-J1030 Depo Medrol 40 mg (Methyl Prednisolone Acetate) 15:26: 33 STRING CUTTER CPT-52362 Sono retroperitoneal complete kidneys and bladder 17:15: 30 CDT CPT-78858 Abd compl w upright 16:09:25 CDT CPT-J1100 Decadron 8mg (Dexamethasone) 17:07:57 CDT CPT-44661 Abx/Therapy Injection 17:07:57 CDT CPT-J1100 Decadron 8mg (Dexamethasone) 16:55:24 CDT CPT-13765 Chest 2V Frontal and Lat 16:32:44 CDT
--- OUTSIDE RECORDS SUMMARY | 2016-11-04 18:29 | XMS REPORT | Clinical Summary ---
Author Author Admin, E Organization [employer] Address Unknown Phone Unavailable Allergies, Adverse Reactions, [...] sites Morbid obesity 278.01 Active Juliet Kimbrough SURGICAL INSTRUMENT TECHNICIAN Morbid obesity 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 Active Juliet Kimbrough SURGICAL INSTRUMENT TECHNICIAN Dependence on other enabling machines and devices Gait unsteady 781.2 Active Juliet Kimbrough SURGICAL INSTRUMENT TECHNICIAN Abnormality of gait Pneumonia, organism unspecified ICD-486 [...] MD Physical examination ICD-V70.0 Jim Hui MD Smoker/tobacco use disorder-smoking cessation discussed ICD-305.1 Jim Hui MD Vaginitis ICD-616.10 Jim Hui MD Vaginitis, candidal ICD-112.1 Jim Hui MD Other abnormal blood chemistry ICD-790.6 Jim Hui MD 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 Jim Hui MD Boils, recurrent ICD-680.9 Jim Hui MD Postconcussion syndrome ICD-310.2 Jim Hui MD Nevus, 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 Jim Hui MD Encounter for removal of sutures ICD-V58.32 Jim Hui MD Hot flashes ICD-627.2 Jim Phillipslow MD Personality change ICD-301.9 Inactive Vishal Hui MD Leukocytosis ICD-288.60 Inactive Vishal Hui MD UTI ICD-599.0 Inactive Vishal Hiu MD Elevated blood glucose ICD-790.29 Inactive Vishal Hui MD Fatigue ICD-780.79 Inactive Vishal Hui MD 2014 Medication List Medication Instructions Start Date Stop Date Generic Name NDC Status Provider Patient Instruction ABILIFY MAINTENA 400 MG IM SUSR Injection once per month ARIPIPRAZOLE 80460696942 Active Juliet Kimbrough SURGICAL INSTRUMENT TECHNICIAN Active PREDNISONE 20 MG TAB 2 tabs daily for 4 days, 1 tab daily for 4 days, 1/2 tab daily for 4 days PREDNISONE 08824777820 Active Vishal Hui MD Active IMITREX 50 MG ORAL TABS 1/2 tab every 6 hours prn SUMATRIPTAN SUCCINATE 12246990145 Active Jillina Mauricio WALTERSN Active AMBIEN 5 MG ORAL TABS 1 tab at bedtime ZOLPIDEM TARTRATE 71091972370 Active Jillina Mauricio WALTERSN Active PROZAC 20 MG ORAL CAPS 1 tab daily FLUOXETINE HCL 14672532756 Active Jillina Mauricio WALTERSN Active ABILIFY 15 MG ORAL TABS 1 tab daily ARIPIPRAZOLE 89078766358 Active Jillina Mauricio WALTERSN Active MINIPRESS 2 MG CAPS 4 cap po at night PRAZOSIN HCL 68314134954 Active Jillina Johnl SURGICAL INSTRUMENT TECHNICIAN Active TOPAMAX 50 MG ORAL TABS 1 tab twice daily TOPIRAMATE 81772709675 Active Jillina Frazelephraim SURGICAL INSTRUMENT TECHNICIAN Active SAPHRIS 5 MG SUBL 1 po bid ASENAPINE MALEATE 08476384483 No Longer Active Jillina Frazell SURGICAL INSTRUMENT TECHNICIAN Active LATUDA 80 MG TABS Take one by mouth daily LURASIDONE HCL 71082732346 No Longer Active Luigi Martínez APRN Active AMLODIPINE BESYLATE 5 MG TABS 1 tablet by mouth daily AMLODIPINE BESYLATE 07789435240 No Longer Active Luigi Martínez SURGICAL INSTRUMENT TECHNICIAN Active AMITRIPTYLINE HCL 100 MG TAB one at hs AMITRIPTYLINE HCL 76154878471 No Longer Active Vishal Hui MD Active TRAZODONE HCL 100 MG TAB take 1 at bedtime TRAZODONE HCL 18741190449 No Longer Active Vishal Hui MD Active VYVANSE 40 MG CAPS 1 daily, LISDEXAMFETAMINE DIMESYLATE 50594908573 No Longer Active Vishal Hui MD Active IBUPROFEN 600 MG TAB 1 po TID PRN IBUPROFEN 41235304448 No Longer Active Vishal Hui MD Active MIRALAX PACK 1 po qd PRN Constipation POLYETHYLENE GLYCOL 3350 97814613262 Active Vishal Hui MD Active PROZAC 20 MG CAP Take one by mouth daily FLUOXETINE HCL 96882790543 No Longer Active Vishal Hui MD Active ZOFRAN 4 MG TABS 1 po q6hr PRN Nausea ONDANSETRON HCL Active Vishal Hui MD Active BACTRIM DS 800-160 MG TABS 1 pill by mouth twice daily SULFAMETHOXAZOLE-TRIMETHOPRIM 23192899183 No Longer Active Sahara Rodriguez MD PhD Active DIFLUCAN 150 MG TAB 1 tablet by mouth daily FLUCONAZOLE 10285340967 No Longer Active Vishal Hui MD Active TIZANIDINE HCL 4 MG TABS 1 po q6hr PRN Muscle Spasm/Back Pain TIZANIDINE HCL 77826678856 Active Luigi Martínez APRN Active CLINDAMYCIN HCL 150 MG CAPS 1 four times a day CLINDAMYCIN HCL 37029058508 No Longer Active Neeraj Collins MD Active KEFLEX 500 MG ORAL CAPS 1 cap QID by mouth CEPHALEXIN 46914683913 No Longer Active Neeraj Collins MD Active DIFLUCAN 150 MG TABS 1 pill every other day x 2 doses FLUCONAZOLE 25655584513 No Longer Active Sahara Rodriguez MD PhD Active MELATONIN 3 MG CAPS 2 po q hs MELATONIN 39855223440 No Longer Active Sahara Rodriguez MD PhD Active MULTIVITAMINS CAPS Take one by mouth daily MULTIPLE VITAMIN 73133817262 No Longer Active Sahara Rodriguez MD PhD Active BACTRIM DS 800-160 MG TAB 1 tab by mouth twice daily TRIMETHOPRIM-SULFAMETHOXAZOLE 45618010836 No Longer Active Sahara Rodriguez MD PhD Active [facility] PROBIOTIC ORAL CHEW 2 daily po PROBIOTIC PRODUCT 12074958523 No Longer Active Sahara Rodriguez MD PhD Active BACTRIM DS 800-160 MG TABS 1 po BID x 7 days SULFAMETHOXAZOLE-TRIMETHOPRIM 85242592064 No Longer Active Vishal Hui MD Active CHANTIX STARTING MONTH EARNEST 0.5 MG X 11 & 1 MG X 42 TABS 0.5mg daily for 3 days , then 0.5mg BID for 4 days, then 1mg BID VARENICLINE TARTRATE 22595877966 No Longer Active TAMARA Gray Active METOPROLOL TARTRATE 50 MG TAB 1 po bid METOPROLOL TARTRATE 07933274755 Active Vishal Hui MD Active VERAPAMIL HCL CR 120 MG TAB CR 1 po bid VERAPAMIL HCL 13214948310 No Longer Active Vishal Hui MD Active METOPROLOL SUCCINATE 50 MG TB24 1 tablet by mouth daily METOPROLOL SUCCINATE 98420986157 No Longer Active Vishal Hui MD Active TRAMADOL HCL 50 MG TABS 1-2 po TID PRN Pain TRAMADOL HCL 86839137967 Active Luigi Martínez APRN Active SAPHRIS 10 MG SUBL 1 tab po bid ASENAPINE MALEATE 54708711878 No Longer Active Vishal Hui MD Active LISINOPRIL 20 MG TABS 1 tab po qd LISINOPRIL 54678989597 No Longer Active Vishal Hui MD Active BENADRYL 25 MG CAP 2 po tid prn anxiety DIPHENHYDRAMINE HCL 41668099872 Active Vishal Hui MD Active LATUDA 20 MG TABS Take one by mouth daily LURASIDONE HCL 38709978442 No Longer Active Vishal Hui MD Active TRAZODONE HCL 50 MG TABS 1/2 tab po qd prn for anxiety TRAZODONE HCL 00566303899 No Longer Active Vishal Hui MD Active PIROXICAM 20 MG CAPS 1 cap po qd PRN Pain PIROXICAM 56879721187 Active Vishal Hui MD Active OMEPRAZOLE 20 MG TBEC 1 po q a.m. 30min prior to first food intake OMEPRAZOLE 30832585387 Active Vishal Hui MD Active RANITIDINE HCL 150 MG CAPS 1 twice a day RANITIDINE HCL 99820835110 Active Vishal Hui MD Active LINZESS 290 MCG CAPS Take one by mouth daily LINACLOTIDE 27856866238 No Longer Active Vishal Hui MD Active SAPHRIS 5 MG SUBL 1 tab po qd ASENAPINE MALEATE 81604569660 No Longer Active Vishal Hui MD Active ZALEPLON 10 MG CAPS 1 cap po every other night ZALEPLON 53593607992 No Longer Active Vishal Hui MD Active LYRICA 50 MG CAPS 1 tab po TID PREGABALIN 00392471490 No Longer Active Vishal Hui MD Active LORATADINE 10 MG TABS 1 tab po qd LORATADINE 96387593299 No Longer Active Vishal Hui MD Active VERAPAMIL HCL ER 180 MG CR-TABS 1 tab po bid VERAPAMIL HCL 34997501345 No Longer Active Vishal Hui MD Active MIRALAX POWD 1 capfull once daily POLYETHYLENE GLYCOL 3350 08076662260 No Longer Active Vishal Hui MD Active PREDNISONE 20 MG TABS 1 tab po qd PREDNISONE 46520168786 No Longer Active Renzo Thornton DO Active LEVOFLOXACIN 500 MG TABS 1 tab po qd LEVOFLOXACIN 95948610259 No Longer Active Renzo Thornton DO Active BUSPIRONE HCL 15 MG TABS 1 tab po TID BUSPIRONE HCL 63098865574 No Longer Active Renzo Thornton DO Active BENZTROPINE MESYLATE 1 MG TABS 1 tab po qd BENZTROPINE MESYLATE 57500276036 No Longer Active Renzo Thornton DO Active ATENOLOL 25 MG TABS 1 tab po qd ATENOLOL 82904763517 No Longer Active Renzo Thornton DO Active ESCITALOPRAM OXALATE 20 MG TABS 1 tab po qd ESCITALOPRAM OXALATE 24918750309 No Longer Active Renzo Thornton DO Active ADVAIR DISKUS 250-50 MCG/DOSE AEPB 1 puff BID FLUTICASONE-SALMETEROL 99959002778 No Longer Active Renzo Thornton DO Active PREDNISONE 20 MG TAB 2 tabs daily for 3 days, 1 tab daily for 3 days, 1/2 tab daily for 2 days PREDNISONE 51347078711 No Longer Active Vishal Hui MD Active CEFDINIR 300 MG CAPS by mouth twice a day CEFDINIR 30245061420 No Longer Active Vishal Hui MD Active LANSOPRAZOLE 30 MG CPDR 1 cap po qd LANSOPRAZOLE 38488007403 No Longer Active Vishal Hui MD Active BACLOFEN 20 MG TABS 1 tab po tid BACLOFEN 03712963740 No Longer Active Vishal Hui MD Active ADVAIR DISKUS 250-50 MCG/DOSE AEPB 1 puff BID ADVAIR DISKUS 250-50 MCG/DOSE AEPB FLUTICASONE-SALMETEROL Inactive ESCITALOPRAM OXALATE 20 MG TABS 1 tab po qd ESCITALOPRAM OXALATE 20 MG TABS 885081 ESCITALOPRAM OXALATE Inactive ATENOLOL 25 MG TABS 1 tab po qd ATENOLOL 25 MG TABS 122366 ATENOLOL Inactive BENZTROPINE MESYLATE 1 MG TABS 1 tab po qd BENZTROPINE MESYLATE 1 MG TABS 663742 BENZTROPINE MESYLATE Inactive BUSPIRONE HCL 15 MG TABS 1 tab po TID BUSPIRONE HCL 15 MG TABS 768746 BUSPIRONE HCL Inactive LEVOFLOXACIN 500 MG TABS 1 tab po qd LEVOFLOXACIN 500 MG TABS 723188 LEVOFLOXACIN Inactive PREDNISONE 20 MG TABS 1 tab po qd PREDNISONE 20 MG TABS 222378 PREDNISONE Inactive MIRALAX POWD 1 capfull once daily MIRALAX POWD 407886 POLYETHYLENE GLYCOL 3350 Inactive VERAPAMIL HCL ER 180 MG CR-TABS 1 tab po bid VERAPAMIL HCL ER 180 MG CR-TABS VERAPAMIL HCL Inactive LORATADINE 10 MG TABS 1 tab po qd LORATADINE 10 MG TABS 103907 LORATADINE Inactive LYRICA 50 MG CAPS 1 tab po TID LYRICA 50 MG CAPS PREGABALIN Inactive ZALEPLON 10 MG CAPS 1 cap po every other night ZALEPLON 10 MG CAPS 392397 ZALEPLON Inactive SAPHRIS 5 MG SUBL 1 tab po qd SAPHRIS 5 MG SUBL ASENAPINE MALEATE Inactive TRAZODONE HCL 50 MG TABS 1/2 tab po qd prn for anxiety TRAZODONE HCL 50 MG TABS 591095 TRAZODONE HCL Inactive LATUDA 20 MG TABS Take one by mouth daily LATUDA 20 MG TABS LURASIDONE HCL Inactive LISINOPRIL 20 MG TABS 1 tab po qd LISINOPRIL 20 MG TABS 681894 LISINOPRIL Inactive SAPHRIS 10 MG SUBL 1 [...] twice daily BACTRIM DS 800-160 MG TAB 264307 TRIMETHOPRIM-SULFAMETHOXAZOLE Inactive MULTIVITAMINS CAPS Take one by mouth daily MULTIVITAMINS CAPS MULTIPLE VITAMIN Inactive MELATONIN 3 MG CAPS 2 po q hs MELATONIN 3 MG CAPS 438702 MELATONIN Inactive KEFLEX 500 MG ORAL CAPS 1 cap QID by mouth KEFLEX 500 MG ORAL CAPS 186546 CEPHALEXIN Inactive CLINDAMYCIN HCL 150 MG CAPS 1 four times a day CLINDAMYCIN HCL 150 MG CAPS 201943 CLINDAMYCIN HCL Inactive DIFLUCAN 150 MG TAB 1 tablet by mouth daily DIFLUCAN 150 MG TAB 824184 FLUCONAZOLE Inactive PROZAC 20 MG CAP Take one by mouth daily PROZAC 20 MG CAP 367883 FLUOXETINE HCL Inactive IBUPROFEN 600 MG TAB 1 po TID PRN IBUPROFEN 600 MG TAB 641273 IBUPROFEN Inactive VYVANSE 40 MG CAPS 1 daily, VYVANSE 40 MG CAPS LISDEXAMFETAMINE DIMESYLATE Inactive TRAZODONE HCL 100 MG TAB take 1 at bedtime TRAZODONE HCL 100 MG TAB 966479 TRAZODONE HCL Inactive AMITRIPTYLINE HCL 100 MG TAB one at hs AMITRIPTYLINE HCL 100 MG TAB 458354 AMITRIPTYLINE HCL Inactive AMLODIPINE BESYLATE 5 MG TABS 1 tablet by mouth daily AMLODIPINE BESYLATE 5 MG TABS 766046 AMLODIPINE BESYLATE Inactive LATUDA 80 MG TABS Take one by mouth daily LATUDA 80 MG TABS LURASIDONE HCL Inactive SAPHRIS 5 MG SUBL 1 po bid SAPHRIS 5 MG SUBL ASENAPINE MALEATE Inactive CEFDINIR 300 MG CAPS by mouth twice a day CEFDINIR 300 MG CAPS 877194 CEFDINIR Inactive PREDNISONE 20 MG TAB 2 tabs daily for 3 days, 1 tab daily for 3 days, 1/2 tab daily for 2 days PREDNISONE 20 MG TAB 001050 PREDNISONE Inactive BACTRIM DS 800-160 MG TABS 1 po BID x 7 days BACTRIM DS 800-160 MG TABS 19820521 SULFAMETHOXAZOLE-TRIMETHOPRIM Inactive DIFLUCAN 150 MG TABS 1 pill every other day x 2 doses DIFLUCAN 150 MG TABS 365867 FLUCONAZOLE Inactive BACTRIM DS 800-160 MG TABS [...] pressure, diastolic - 8462-4 75 mm[Hg] BP mcnlaly blood pressure, systolic - 8480-6 112 mm[Hg] [...] % 11.6-14.8 platelet count 394 10^3/MM^3 10*3/mm3 813-047 7858/01/11 leukocyte count, blood 13.8 10^3/MM^3 10*3/mm3 4.6-10.2 [...] Panel - Chemistry sodium, serum 139 mmol/L 243-345 8113/12/03 carbon dioxide, venous blood 28.5 mmol/L 21.0-32.0 [...] 5.5 % 4.3-6.0 cholesterol, serum 159 mg/dL 835-775 6335/12/03 triglyceride, serum, fasting 118 mg/dL 30-200 HDL cholesterol, serum 45 mg/dL 32-96 LDL cholesterol, serum 90 mg/dL 0-130 Lab Report: CBC W/DIFF, Comp. Metabolic Panel, HGBA1C, Lipid Panel - Hematology lymphocytes as percent of blood leukocytes 26.7 % 20.5-51.1 erythrocyte (RBC) count 4.38 10^6/MM^3 10*6/mm3 4.04-5.48 hemoglobin, blood 13.8 g/dL 12.0-16.0 hematocrit, blood 40.8 % 36.0-46.0 mean corpuscular volume, RBC 93 fL 80-97 mean corpuscular hemoglobin, RBC 31.6 pg 27.0-31.2 mean corpuscular hemoglobin concentration, RBC 34.0 G/DL % 31.8- 35.4 red blood cell distribution width 12.8 % 11.6-14.8 platelet count 362 10^3/MM^3 10*3/mm3 980-759 5179/12/03 leukocyte count, blood 12.5 10^3/MM^3 10*3/mm3 4.6-10.2 neutrophils as percent of blood leukocytes 62.7 % 42.2-75.2 monocytes as percent of blood leukocytes 8.0 % 1.7-9.3 Lab Report: CBC, Comp. Metabolic Panel, Free Thyroxine (L), Thyroid Stim ... - Chemistry sodium, serum 140 mmol/L 128-168 3460/05/28 potassium, serum 4.2 mmol/L 3.5-5.2 chloride, serum [...] 10*6/mm3 4.04-5.48 hemoglobin, blood 12.9 g/dL 12.0-16.0 mean corpuscular hemoglobin, RBC 31.4 pg 27.0-31.2 mean corpuscular hemoglobin concentration, RBC 33.6 G/DL % 31.8- 35.4 red blood cell distribution width 13.1 % 11.6-14.8 platelet count 348 10^3/MM^3 10*3/mm3 356-098 6353/05/28 hematocrit, blood 38.5 % 36.0-46.0 mean corpuscular volume, RBC 93 fL 80-97 Lab Report: Comp. Metabolic Panel - Chemistry sodium, serum 139 mmol/L 192-766 8440/12/22 carbon dioxide, venous blood 26.8 mmol/L 21.0-32.0 potassium, serum 4.2 mmol/L 3.5-5.2 chloride, serum 103 mmol/L 98-107 blood glucose 115 mg/dL 65-110 urea nitrogen, blood 20 mg/dL 7-18 creatinine, serum 0.90 mg/dL 0.55-1.30 alanine aminotransferase (SGPT), serum 38 U/L aspartate aminotransferase (SGOT), serum 19 U/L 15-37 calcium, serum 8.6 mg/dL 8.5-10.1 bilirubin, serum, total 0.30 mg/dL 0.00-1.00 sodium, serum 141 mmol/L 211-343 2815 potassium, serum 4.3 mmol/L 3.5-5.2 chloride, serum 106 mmol/L 98-107 carbon dioxide, venous blood 25.7 mmol/L 21.0-32.0 blood glucose 119 mg/dL 65-110 urea nitrogen, blood 22 mg/dL 7-18 creatinine, serum 0.90 mg/dL 0.60-1.30 alanine aminotransferase (SGPT), serum 28 U/L -78 aspartate aminotransferase (SGOT), serum 13 U/L 15-37 calcium, serum 8.5 mg/dL 8.5-10.1 bilirubin, serum, total 0.20 mg/dL 0.00-1.00 sodium, serum 139 mmol/L 509-780 4316/01/11 carbon dioxide, venous blood 26.6 mmol/L 21.0-32.0 [...] Rate - Chemistry sodium, serum 139 mmol/L 885-893 5799/12/11 carbon dioxide, venous blood 25.4 mmol/L 21.0-32.0 [...] total hemoglobin 5.3 % 4.3-6.0 Lab Report: /Adult/615, FSH/Adult/470 - Chemistry luteinizing hormone, serum 2.7 [...] 5.5 5.0-8.5 Lab Report: UADIP W/MICRO, AUTO, [facility] - Chemistry RBC, urine, dipstick Negative Negative [...] urine Negative Negative Lab Report: Varicella-Zoater Inga IgG,IgM/48134, HEP Be Antibody/556, RUB ... - Serology rubella antibody, serum, IgG 2.88 Encounters Code Encounter Date Provider Facility CPT-16629 Level 4 Est. Patient 09:00:51 AGRICULTURAL RESEARCH ENGINEER Vishal Hui MD [facility] CPT-28380 Level 3 Est. Patient 11:37:33 AGRICULTURAL RESEARCH ENGINEER Vishal Hui MD [facility] CPT-29179 Level 3 Est. Patient 08:41:09 AGRICULTURAL RESEARCH ENGINEER Vishal Hui MD [facility] CPT-11843 Level 4 Est. Patient 10:19:35 AGRICULTURAL RESEARCH ENGINEER Vishal Hui MD [facility] CPT-78697 Level 3 Est. Patient 13:35:45 CDT Vishal Hui MD [facility] CPT-10454 Level 4 Est. Patient 10:08:37 CDT Vishal Hui MD [facility] CPT-59204 Level 3 Est. Patient 11:22:10 CDT Vishal Hui MD [facility] CPT-58468 Level 3 Est. Patient 11:03:32 CDT Sahara Rodriguez MD PhD [facility]-88961 Level 3 Est. Patient 09:41:35 CDT Vishal Hui MD [facility] CPT-15990 Level 3 Est. Patient 12:00:41 CDT Neeraj Collins MD [facility] CPT-10942 Level 3 Est. Patient 09:16:24 CDT Vishal Hui MD [facility] CPT-30706 Level 4 Est. Patient 13:59:09 CDT Neeraj Collins MD [facility] CPT-04533 Level 3 Est. Patient 15:19:43 CDT Renzo Thornton DO [facility] CPT-54408 Level 3 Est. Patient 18:10:26 CDT Sahara Rodriguez MD [facility]-86598 Level 3 Est. Patient 14:49:50 CDT Vishal Hui MD [facility] CPT-52225 Level 4 Est. Patient 18:41:46 CDT Neeraj Collins MD [facility] CPT-61356 Level 4 Est. Patient 09:18:38 AGRICULTURAL RESEARCH ENGINEER Vishal Hui MD [facility]-44261 Level 3 Est. Patient 14:43:55 AGRICULTURAL RESEARCH ENGINEER Vishal Hui MD [facility] CPT-08287 Level 3 Est. Patient 15:26:33 AGRICULTURAL RESEARCH ENGINEER Sahara Rodriguez MD PhD [facility] CPT-31510 Level 3 Est. Patient 10:32:14 AGRICULTURAL RESEARCH ENGINEER Vishal Hui MD [facility] CPT-65059 Level 3 Est. Patient 15:12:52 AGRICULTURAL RESEARCH ENGINEER Vishal Hui MD [facility]-96234 Level 4 Est. Patient 09:19:27 CDT Vishal Hui MD [facility] CPT-11831 Level 3 Est. Patient 15:53:00 CDT Renzo W Norberto [facility] CPT-03958 Level 3 Est. Patient 15:50:30 CDT Renzo Thornton [facility] CPT-83401 Level 3 Est. Patient 16:55:24 CDT Vishal Hui MD [facility] Procedures Code Procedure Name Date Entry Date Standard Description CPT-G0438 Initial Annual Wellness Exam 19:01:01 AGRICULTURAL RESEARCH ENGINEER CPT-J3420 Vitamin B12 1000mcg (Cyanocobalamin) 16:57:46 CDT 08/14 CPT-36824 Recombivax HB Injection Suspension 5 MCG/0.5ML 08:37:50 AGRICULTURAL RESEARCH ENGINEER CPT-28628 Immunization Single Admin 08:37:50 AGRICULTURAL RESEARCH ENGINEER CPT-J3420 Vitamin B12 1000mcg (Cyanocobalamin) 08:32:16 AGRICULTURAL RESEARCH ENGINEER 03/11 CPT-68579 Abx/Therapy Injection 08:32:16 AGRICULTURAL RESEARCH ENGINEER CPT-15999 Chest 2V Frontal and Lat 11:46:38 AGRICULTURAL RESEARCH ENGINEER CPT-63408 Venipuncture Draw Fee 09:12:45 AGRICULTURAL RESEARCH ENGINEER CPT-J3420 Vitamin B12 1000mcg (Cyanocobalamin) 08:50:15 AGRICULTURAL RESEARCH ENGINEER 02/08 CPT-91604 Abx/Therapy Injection 08:50:15 AGRICULTURAL RESEARCH ENGINEER CPT-Cryo Cryotherapy 10:19:35 AGRICULTURAL RESEARCH ENGINEER CPT-000 Give Appropriate Flu Vaccine 09:22:16 CDT CPT-J3420 Vitamin B12 1000mcg (Cyanocobalamin) 19:08:57 CDT 01/11 CPT-77770 Abx/Therapy Injection 19:08:57 CDT CPT-J3420 Vitamin B12 1000mcg (Cyanocobalamin) 08:19:08 CDT 12/11 CPT-63229 Abx/Therapy Injection 08:19:08 CDT CPT-J3420 Vitamin B12 1000mcg (Cyanocobalamin) 14:48:00 CDT 11/09 CPT-45089 Abx/Therapy Injection 14:47:59 CDT CPT-J3420 Vitamin B12 1000mcg (Cyanocobalamin) 08:34:04 CDT 10/09 CPT-90366 Abx/Therapy Injection 08:34:04 CDT CPT-J3420 Vitamin B12 1000mcg (Cyanocobalamin) 09:18:52 CDT 09/11 CPT-57768 Abx/Therapy Injection 09:18:52 CDT CPT-J3420 Vitamin B12 1000mcg (Cyanocobalamin) 08:35:44 CDT 09/04 CPT-75603 Abx/Therapy Injection 08:35:44 CDT CPT-06897 Immunization Single Admin 11:07:16 CDT CPT-82411 Hepatitis B adult IM 11:07:16 CDT CPT-J3420 Vitamin B12 1000mcg (Cyanocobalamin) 11:00:49 CDT 08/28 CPT-J1040 Depo Medrol 80 mg (Methyl Prednisolone Acetate) 11:00: 49 CDT CPT-09516 Abx/Therapy Injection 11:00:49 CDT CPT-J1040 Depo Medrol 80 mg (Methyl Prednisolone Acetate) 09:16: 23 CDT CPT-J3420 Vitamin B12 1000mcg (Cyanocobalamin) 08:27:05 CDT 08/20 CPT-59539 Abx/Therapy Injection 08:27:05 CDT CPT-27431 Recombivax HB Injection Suspension 5 MCG/0.5ML 10:00:41 CDT CPT-80327 Administration single or combination vaccine inc oral 10 :00:41 CDT CPT-20578 Sono transvag pelvis non OB uterus ovaries cervix 16:36: 57 CDT CPT-66944 LS spine comp w obliq 09:50:55 AGRICULTURAL RESEARCH ENGINEER CPT-42103 Abd compl w upright 09:50:55 AGRICULTURAL RESEARCH ENGINEER CPT-J1100 Decadron 4mg (Dexamethasone) 15:51:24 AGRICULTURAL RESEARCH ENGINEER CPT-J1030 Depo Medrol 40 mg (Methyl Prednisolone Acetate) 15:51: 24 AGRICULTURAL RESEARCH ENGINEER CPT-13938 Abx/Therapy Injection 15:51:24 AGRICULTURAL RESEARCH ENGINEER CPT-J1100 Decadron 4mg (Dexamethasone) 15:26:33 AGRICULTURAL RESEARCH ENGINEER CPT-J1030 Depo Medrol 40 mg (Methyl Prednisolone Acetate) 15:26: 33 AGRICULTURAL RESEARCH ENGINEER CPT-87256 Sono retroperitoneal complete kidneys and bladder 17:15: 30 CDT CPT-93102 Abd compl w upright 16:09:25 CDT CPT-J1100 Decadron 8mg (Dexamethasone) 17:07:57 CDT CPT-76546 Abx/Therapy Injection 17:07:57 CDT CPT-J1100 Decadron 8mg (Dexamethasone) 16:55:24 CDT CPT-46965 Chest 2V Frontal and Lat 16:32:44 CDT
--- OUTSIDE RECORDS SUMMARY | 2016-11-04 18:31 | XMS REPORT | Clinical Summary ---
Author Author Admin, [employer] Organization [facility] Address Unknown Phone Unavailable Allergies, Adverse Reactions, [...] B-complex deficiencies Vaginitis, candidal 112.1 Resolved Vishal Hiu MD Candidiasis of vulva and vagina Other [...] Shortness of breath 786.05 Active Fabiola Johnson ASSAYER Shortness of breath Nocturnal hypoxia 799.02 Active Fabiola Johnson ASSAYER Hypoxemia Neck pain 723.1 Active Luigi Martínez ASSAYER Cervicalgia Vaginal discharge 623.5 Active Neeraj Collins [...] SUSR 400mg injection every 28 days ARIPIPRAZOLE 22498325462 Active Silvia Wilian Casey LPN Active FLAGYL 500 MG TAB 1 tablet by mouth bid METRONIDAZOLE 23662826154 Active Olimpia Raida Active FLUTICASONE PROPIONATE 50 MCG/ACT SUSP 2 sprays each nostril daily before bed. FLUTICASONE PROPIONATE 40901471540 Active Fabiola Johnson APRN Active VERAPAMIL HCL ER 120 MG ORAL CR-TABS 1 tab po daily for blood pressure 09/27 VERAPAMIL HCL 50686890237 Active Fabiola Johnson APRN Active ADZENYS XR-ODT 6.3 MG ORAL TBED 1 tab po daily for ADHD AMPHETAMINE 02534963629 Active Fabiola Johnson APRN Active BENADRYL 25 MG CAP 4 po at bedtime for insomnia DIPHENHYDRAMINE HCL 85372287793 Active Fabiola Johnson APRN Active KLONOPIN 1 MG ORAL TABS 1 tab po TID CLONAZEPAM 73544113383 Active Fabiola Johnson APRN Active VALIUM 5 MG TAB Take 1-2 tablets daily DIAZEPAM 38479771830 No Longer Active Fabiola Johnson APRN Active METOPROLOL TARTRATE 25 MG ORAL TABS 1/2 tablet twice daily for heart rate and blood pressure METOPROLOL TARTRATE 12057933341 No Longer Active Fabiola Johnson APRN Active MIRALAX ORAL POWD 17GMS DAILY IN WATER POLYETHYLENE GLYCOL 3350 32948489843 Active Vishal Hui MD Active VIIBRYD 10 MG ORAL TABS Take 1 tablet once a day VILAZODONE HCL 03703086318 Active Ahmet Carbajal MD Active DICLOFENAC POTASSIUM TABS Take 1 tablet twice a day (pt. is not sure of the dose.) DICLOFENAC POTASSIUM TABS 58392477086 Active Ahmet Carbajal MD Active MIRALAX PACK 1 po qd PRN Constipation POLYETHYLENE GLYCOL 3350 08671827216 No Longer Active Ahmet Carbajal MD Active MINIPRESS 2 MG CAPS 4 cap po at night PRAZOSIN HCL 60885673048 No Longer Active Ahmet Carbajal MD Active PIROXICAM 20 MG CAPS 1 cap po qd PRN Pain PIROXICAM 90627581317 No Longer Active Ahmet Carbajal MD Active TRAMADOL HCL 50 MG TABS 1-2 po TID PRN Pain TRAMADOL HCL 51903017627 No Longer Active Ahmet Carbajal MD Active METOPROLOL TARTRATE 50 MG TAB 1 po bid METOPROLOL TARTRATE 13487114891 No Longer Active Ahmet Carbajal MD Active ABILIFY 15 MG ORAL TABS 1 tab daily ARIPIPRAZOLE 68270997670 No Longer Active Ahmet Carbajal MD Active PROZAC 20 MG ORAL CAPS 1 tab daily FLUOXETINE HCL 47898987254 No Longer Active Ahmet Carbajal MD Active AMBIEN 5 MG ORAL TABS 1 tab at bedtime ZOLPIDEM TARTRATE 07147707598 No Longer Active Ahmet Carbajal MD Active PREDNISONE 20 MG TAB 2 tabs daily for 4 days, 1 tab daily for 4 days, 1/2 tab daily for 4 days PREDNISONE 58993381330 No Longer Active Ahmet Carbajal MD Active KEFLEX 500 MG CAP 1 po TID x 10 days CEPHALEXIN 04666792587 No Longer Active Vishal Hui MD Active IMITREX 50 MG ORAL TABS 1/2 tab every 6 hours prn SUMATRIPTAN SUCCINATE 26824623400 Active Luigi Martínez ASSAYER Active TOPAMAX 50 MG ORAL TABS 1 tab twice daily TOPIRAMATE 72563177521 Active Vishal Hui MD Active SAPHRIS 5 MG SUBL 1 po bid ASENAPINE MALEATE 24326109341 No Longer Active Luigi Martínez ASSAYER Active LATUDA 80 MG TABS Take one by mouth daily LURASIDONE HCL 25152645905 No Longer Active Luigi Martínez APRN Active AMLODIPINE BESYLATE 5 MG TABS 1 tablet by mouth daily AMLODIPINE BESYLATE 27561135781 No Longer Active Luigi Martínez APRN Active AMITRIPTYLINE HCL 100 MG TAB one at hs AMITRIPTYLINE HCL 20479890050 No Longer Active Vishal Hui MD Active TRAZODONE HCL 100 MG TAB take 1 at bedtime TRAZODONE HCL 80246337141 No Longer Active Vishal Hui MD Active VYVANSE 40 MG CAPS 1 daily, LISDEXAMFETAMINE DIMESYLATE 63982197052 No Longer Active Vishal Hui MD Active IBUPROFEN 600 MG TAB 1 po TID PRN IBUPROFEN 15337485591 No Longer Active Vishal Hui MD Active PROZAC 20 MG CAP Take one by mouth daily FLUOXETINE HCL 02417482722 No Longer Active Vishal Hui MD Active ZOFRAN 4 MG TABS 1 po q6hr PRN Nausea ONDANSETRON HCL Active Vishal Hui MD Active BACTRIM DS 800-160 MG TABS 1 pill by mouth twice daily SULFAMETHOXAZOLE-TRIMETHOPRIM 84414694486 No Longer Active Sahara Rodriguez MD PhD Active DIFLUCAN 150 MG TAB 1 tablet by mouth daily FLUCONAZOLE 07149833010 No Longer Active Vishal Hui MD Active TIZANIDINE HCL 4 MG TABS 1 po q6hr PRN Muscle Spasm/Back Pain TIZANIDINE HCL 59232737608 Active Vishal Hui MD Active CLINDAMYCIN HCL 150 MG CAPS 1 four times a day CLINDAMYCIN HCL 58586233507 No Longer Active Neeraj Collins MD Active KEFLEX 500 MG ORAL CAPS 1 cap QID by mouth CEPHALEXIN 17640066766 No Longer Active Neeraj Collins MD Active DIFLUCAN 150 MG TABS 1 pill every other day x 2 doses FLUCONAZOLE 89680046768 No Longer Active Sahara Rodriguez MD PhD Active MELATONIN 3 MG CAPS 2 po q hs MELATONIN 84755022610 No Longer Active Sahara Rodriguez MD PhD Active MULTIVITAMINS CAPS Take one by mouth daily MULTIPLE VITAMIN 69355227756 No Longer Active Sahara Rodriguez MD PhD Active BACTRIM DS 800-160 MG TAB 1 tab by mouth twice daily TRIMETHOPRIM-SULFAMETHOXAZOLE 23348578511 No Longer Active Sahara Rodriguez MD PhD Active [facility] PROBIOTIC ORAL CHEW 2 daily po PROBIOTIC PRODUCT 32185626170 No Longer Active Sahara Rodriguez MD PhD Active BACTRIM DS 800-160 MG TABS 1 po BID x 7 days SULFAMETHOXAZOLE-TRIMETHOPRIM 27469080696 No Longer Active Vishal Hui MD Active CHANTIX STARTING MONTH EARNEST 0.5 MG X 11 & 1 MG X 42 TABS 0.5mg daily for 3 days , then 0.5mg BID for 4 days, then 1mg BID VARENICLINE TARTRATE 23520782425 No Longer Active TAMARA Gray Active VERAPAMIL HCL CR 120 MG TAB CR 1 po bid VERAPAMIL HCL 63601540334 No Longer Active Vishal Hui MD Active METOPROLOL SUCCINATE 50 MG TB24 1 tablet by mouth daily METOPROLOL SUCCINATE 32985164457 No Longer Active Vishal Hui MD Active SAPHRIS 10 MG SUBL 1 tab po bid ASENAPINE MALEATE 98931205093 No Longer Active Vishal Hui MD Active LISINOPRIL 20 MG TABS 1 tab po qd LISINOPRIL 18190514724 No Longer Active Vishal Hui MD Active LATUDA 20 MG TABS Take one by mouth daily LURASIDONE HCL 28834079839 No Longer Active Vishal Hui MD Active TRAZODONE HCL 50 MG TABS 1/2 tab po qd prn for anxiety TRAZODONE HCL 94009924390 No Longer Active Vishal Hui MD Active OMEPRAZOLE 20 MG TBEC 1 po q a.m. 30min prior to first food intake OMEPRAZOLE 96007623846 Active Vishal Hui MD Active RANITIDINE HCL 150 MG CAPS 1 twice a day RANITIDINE HCL 19767677299 Active Jillina Frazell ASSAYER Active LINZESS 290 MCG CAPS Take one by mouth daily LINACLOTIDE 26949113801 No Longer Active Vishal Hui MD Active SAPHRIS 5 MG SUBL 1 tab po qd ASENAPINE MALEATE 27168077691 No Longer Active Vishal Hui MD Active ZALEPLON 10 MG CAPS 1 cap po every other night ZALEPLON 93418700789 No Longer Active Vishal Hui MD Active LYRICA 50 MG CAPS 1 tab po TID PREGABALIN 33362266829 No Longer Active Vishal Hui MD Active LORATADINE 10 MG TABS 1 tab po qd LORATADINE 64491475115 No Longer Active Vishal Hui MD Active VERAPAMIL HCL ER 180 MG CR-TABS 1 tab po bid VERAPAMIL HCL 13562126662 No Longer Active Vishal Hui MD Active MIRALAX POWD 1 capfull once daily POLYETHYLENE GLYCOL 3350 24031693103 No Longer Active Vishal Hui MD Active PREDNISONE 20 MG TABS 1 tab po qd PREDNISONE 53634724262 No Longer Active Renzo Thornton DO Active LEVOFLOXACIN 500 MG TABS 1 tab po qd LEVOFLOXACIN 79936654531 No Longer Active Renzo Thornton DO Active BUSPIRONE HCL 15 MG TABS 1 tab po TID BUSPIRONE HCL 46326325726 No Longer Active Renzo Thornton DO Active BENZTROPINE MESYLATE 1 MG TABS 1 tab po qd BENZTROPINE MESYLATE 88053068667 No Longer Active Renzo Thornton DO Active ATENOLOL 25 MG TABS 1 tab po qd ATENOLOL 48238462750 No Longer Active Renzo Thornton DO Active ESCITALOPRAM OXALATE 20 MG TABS 1 tab po qd ESCITALOPRAM OXALATE 84992825004 No Longer Active Renzo Thornton DO Active ADVAIR DISKUS 250-50 MCG/DOSE AEPB 1 puff BID FLUTICASONE-SALMETEROL 61053167191 No Longer Active Renzo Thornton DO Active PREDNISONE 20 MG TAB 2 tabs daily for 3 days, 1 tab daily for 3 days, 1/2 tab daily for 2 days PREDNISONE 67384281788 No Longer Active Vishal Hui MD Active CEFDINIR 300 MG CAPS by mouth twice a day CEFDINIR 35334221429 No Longer Active Vishal Hui MD Active LANSOPRAZOLE 30 MG CPDR 1 cap po qd LANSOPRAZOLE 58496203461 No Longer Active Vishal Hui MD Active BACLOFEN 20 MG TABS 1 tab po tid BACLOFEN 53261948984 No Longer Active Vishal Hui MD Active ADVAIR DISKUS 250-50 MCG/DOSE AEPB 1 puff BID ADVAIR DISKUS 250-50 MCG/DOSE AEPB FLUTICASONE-SALMETEROL Inactive ESCITALOPRAM OXALATE 20 MG TABS 1 tab po qd ESCITALOPRAM OXALATE 20 MG TABS 969828 ESCITALOPRAM OXALATE Inactive ATENOLOL 25 MG TABS 1 tab po qd ATENOLOL 25 MG TABS 723791 ATENOLOL Inactive BENZTROPINE MESYLATE 1 MG TABS 1 tab po qd BENZTROPINE MESYLATE 1 MG TABS 574364 BENZTROPINE MESYLATE Inactive BUSPIRONE HCL 15 MG TABS 1 tab po TID BUSPIRONE HCL 15 MG TABS 596937 BUSPIRONE HCL Inactive LEVOFLOXACIN 500 MG TABS 1 tab po qd LEVOFLOXACIN 500 MG TABS 459814 LEVOFLOXACIN Inactive PREDNISONE 20 MG TABS 1 tab po qd PREDNISONE 20 MG TABS 512805 PREDNISONE Inactive MIRALAX POWD 1 capfull once daily MIRALAX POWD 390488 POLYETHYLENE GLYCOL 3350 Inactive VERAPAMIL HCL ER 180 MG CR-TABS 1 tab po bid VERAPAMIL HCL ER 180 MG CR-TABS VERAPAMIL HCL Inactive LORATADINE 10 MG TABS 1 tab po qd LORATADINE 10 MG TABS 931854 LORATADINE Inactive LYRICA 50 MG CAPS 1 tab po TID LYRICA 50 MG CAPS PREGABALIN Inactive ZALEPLON 10 MG CAPS 1 cap po every other night ZALEPLON 10 MG CAPS 110669 ZALEPLON Inactive SAPHRIS 5 MG SUBL 1 tab po qd SAPHRIS 5 MG SUBL ASENAPINE MALEATE Inactive TRAZODONE HCL 50 MG TABS 1/2 tab po qd prn for anxiety TRAZODONE HCL 50 MG TABS 283398 TRAZODONE HCL Inactive LATUDA 20 MG TABS Take one by mouth daily LATUDA 20 MG TABS LURASIDONE HCL Inactive LISINOPRIL 20 MG TABS 1 tab po qd LISINOPRIL 20 MG TABS 345905 LISINOPRIL Inactive SAPHRIS 10 MG SUBL 1 [...] twice daily BACTRIM DS 800-160 MG TAB 185368 TRIMETHOPRIM-SULFAMETHOXAZOLE Inactive MULTIVITAMINS CAPS Take one by mouth daily MULTIVITAMINS CAPS MULTIPLE VITAMIN Inactive MELATONIN 3 MG CAPS 2 po q hs MELATONIN 3 MG CAPS 316840 MELATONIN Inactive KEFLEX 500 MG ORAL CAPS 1 cap QID by mouth KEFLEX 500 MG ORAL CAPS 682655 CEPHALEXIN Inactive CLINDAMYCIN HCL 150 MG CAPS 1 four times a day CLINDAMYCIN HCL 150 MG CAPS 683580 CLINDAMYCIN HCL Inactive DIFLUCAN 150 MG TAB 1 tablet by mouth daily DIFLUCAN 150 MG TAB 394364 FLUCONAZOLE Inactive PROZAC 20 MG CAP Take one by mouth daily PROZAC 20 MG CAP 056775 FLUOXETINE HCL Inactive IBUPROFEN 600 MG TAB 1 po TID PRN IBUPROFEN 600 MG TAB 447754 IBUPROFEN Inactive VYVANSE 40 MG CAPS 1 daily, VYVANSE 40 MG CAPS LISDEXAMFETAMINE DIMESYLATE Inactive TRAZODONE HCL 100 MG TAB take 1 at bedtime TRAZODONE HCL 100 MG TAB 374507 TRAZODONE HCL Inactive AMITRIPTYLINE HCL 100 MG TAB one at hs AMITRIPTYLINE HCL 100 MG TAB 444020 AMITRIPTYLINE HCL Inactive AMLODIPINE BESYLATE 5 MG TABS 1 tablet by mouth daily AMLODIPINE BESYLATE 5 MG TABS 041124 AMLODIPINE BESYLATE Inactive LATUDA 80 MG TABS Take one by mouth daily LATUDA 80 MG TABS LURASIDONE HCL Inactive SAPHRIS 5 MG SUBL 1 po bid SAPHRIS 5 MG SUBL ASENAPINE MALEATE Inactive PREDNISONE 20 MG TAB 2 tabs daily for 4 days, 1 tab daily for 4 days, 1/2 tab daily for 4 days PREDNISONE 20 MG TAB 646924 PREDNISONE Inactive AMBIEN 5 MG ORAL TABS 1 tab at bedtime AMBIEN 5 MG ORAL TABS 713506 ZOLPIDEM TARTRATE Inactive PROZAC 20 MG ORAL CAPS 1 tab daily PROZAC 20 MG ORAL CAPS 095699 FLUOXETINE HCL Inactive ABILIFY 15 MG ORAL TABS 1 tab daily ABILIFY 15 MG ORAL TABS 313770 ARIPIPRAZOLE Inactive METOPROLOL TARTRATE 50 MG TAB 1 po bid METOPROLOL TARTRATE 50 MG TAB 216214 METOPROLOL TARTRATE Inactive TRAMADOL HCL 50 MG TABS 1-2 po TID PRN Pain TRAMADOL HCL 50 MG TABS 486744 TRAMADOL HCL Inactive PIROXICAM 20 MG CAPS 1 cap po qd PRN Pain PIROXICAM 20 MG CAPS 040942 PIROXICAM Inactive MINIPRESS 2 MG CAPS 4 cap po at night MINIPRESS 2 MG CAPS 067445 PRAZOSIN HCL Inactive MIRALAX PACK 1 po qd PRN Constipation MIRALAX PACK 252472 POLYETHYLENE GLYCOL 3350 Inactive METOPROLOL TARTRATE 25 MG ORAL TABS 1/2 tablet twice daily for heart rate and blood pressure METOPROLOL TARTRATE 25 MG ORAL TABS 681675 METOPROLOL TARTRATE Inactive VALIUM 5 MG TAB Take 1-2 tablets daily VALIUM 5 MG TAB 625784 DIAZEPAM Inactive CEFDINIR 300 MG CAPS by mouth twice a day CEFDINIR 300 MG CAPS 412180 CEFDINIR Inactive PREDNISONE 20 MG TAB 2 tabs daily for 3 days, 1 tab daily for 3 days, 1/2 tab daily for 2 days PREDNISONE 20 MG TAB 244724 PREDNISONE Inactive BACTRIM DS 800-160 MG TABS 1 po BID x 7 days BACTRIM DS 800-160 MG TABS 19820521 SULFAMETHOXAZOLE-TRIMETHOPRIM Inactive DIFLUCAN 150 MG TABS 1 pill every other day x 2 doses DIFLUCAN 150 MG TABS 044624 FLUCONAZOLE Inactive BACTRIM DS 800-160 MG TABS 1 pill by mouth twice daily BACTRIM DS 800-160 MG TABS 19820521 SULFAMETHOXAZOLE-TRIMETHOPRIM Inactive KEFLEX 500 MG CAP 1 po TID x 10 days KEFLEX 500 MG CAP 273411 CEPHALEXIN Inactive Advance Directives Directive Description Start [...] % 11.6-14.8 platelet count 394 10^3/MM^3 10*3/mm3 936-493 3852/01/11 leukocyte count, blood 13.8 10^3/MM^3 10*3/mm3 4.6-10.2 [...] Panel - Chemistry sodium, serum 139 mmol/L 401-681 2007/12/03 carbon dioxide, venous blood 28.5 mmol/L 21.0-32.0 [...] 5.5 % 4.3-6.0 cholesterol, serum 159 mg/dL 035-154 5412/12/03 triglyceride, serum, fasting 118 mg/dL 30-200 HDL [...] Panel - Chemistry sodium, serum 139 mmol/L 574-088 1279/12/22 carbon dioxide, venous blood 26.8 mmol/L 21.0-32.0 potassium, serum 4.2 mmol/L 3.5-5.2 chloride, serum 103 mmol/L 98-107 blood glucose 115 mg/dL 65-110 urea nitrogen, blood 20 mg/dL 7-18 creatinine, serum 0.90 mg/dL 0.55-1.30 alanine aminotransferase (SGPT), serum 38 U/L aspartate aminotransferase (SGOT), serum 19 U/L 15-37 calcium, serum 8.6 mg/dL 8.5-10.1 bilirubin, serum, total 0.30 mg/dL 0.00-1.00 sodium, serum 139 mmol/L 292-428 6559/01/11 carbon dioxide, venous blood 26.6 mmol/L 21.0-32.0 potassium, serum 4.1 mmol/L 3.5-5.2 chloride, serum 100 mmol/L 98-107 blood glucose 86 mg/dL 65-110 urea nitrogen, blood 16 mg/dL 7-18 creatinine, serum 1.00 mg/dL 0.55-1.30 alanine aminotransferase (SGPT), serum 48 U/L -78 aspartate aminotransferase (SGOT), serum 17 U/L 15-37 calcium, serum 9.1 mg/dL 8.5-10.1 bilirubin, serum, total 0.40 mg/dL 0.00-1.00 sodium, serum 142 mmol/L 039-670 1639/06/08 carbon dioxide, venous blood 27.6 mmol/L 21.0-32.0 potassium, serum 4.0 mmol/L 3.5-5.2 chloride, serum 105 mmol/L 98-107 blood glucose 95 mg/dL 65-110 urea nitrogen, blood 8 mg/dL 7-18 creatinine, serum 0.75 mg/dL 0.55-1.30 alanine aminotransferase (SGPT), serum 49 U/L -78 aspartate aminotransferase (SGOT), serum 28 U/L 15-37 calcium, serum 9.4 mg/dL 8.5-10.1 bilirubin, serum, total 0.30 mg/dL 0.00-1.00 sodium, serum 140 mmol/L 872-937 6822/08/08 carbon dioxide, venous blood 33.7 mmol/L 21.0-32.0 [...] Rate - Chemistry sodium, serum 139 mmol/L 450-469 8722/12/11 carbon dioxide, venous blood 25.4 mmol/L 21.0-32.0 [...] mg/dL Encounters Code Encounter Date Provider Facility CPT-18991 Level 3 Est. Patient 14:27:52 CDT Neeraj Collins MD [facility] CPT-47355 Level 3 Est. Patient 08:56:03 CDT Luigi Martínez Former[facility] CPT-01740 Level 4 Est. Patient 12:11:48 CDT Fabiola Johnson [facility] CPT-12122 Level 3 New Patient 16:53:37 CDT Albert Caldera MD [facility] CPT-15723 Level 3 Est. Patient 11:25:49 CDT Renzo Thornton DO [facility] CPT-49925 Level 3 Est. Patient 15:22:01 CDT Ahmet Carbajal MD [facility] CPT-53988 Level 4 Est. Patient 09:00:51 SCREED OPERATOR Vishal Hui MD [facility] CPT-19545 Level 3 Est. Patient 11:37:33 SCREED OPERATOR Vishal Hui MD [facility] CPT-62219 Level 3 Est. Patient 08:41:09 SCREED OPERATOR Vishal Hui MD [facility] CPT-28905 Level 4 Est. Patient 10:19:35 SCREED OPERATOR Vishal Hui MD [facility] CPT-03653 Level 3 Est. Patient 13:35:45 CDT Vishal Hui MD [facility] CPT-22730 Level 4 Est. Patient 10:08:37 CDT Vishal Hui MD [facility] CPT-13905 Level 3 Est. Patient 11:22:10 CDT Vishal Hui MD [facility] CPT-54396 Level 3 Est. Patient 11:03:32 CDT Sahara Rodriguez MD PhD [facility] CPT-89018 Level 3 Est. Patient 09:41:35 CDT Vishal Hui MD [facility] CPT-90218 Level 3 Est. Patient 12:00:41 CDT Neeraj Collins MD [facility] CPT-89726 Level 3 Est. Patient 09:16:24 CDT Vishal Hui MD [facility] CPT-82047 Level 4 Est. Patient 13:59:09 CDT Neeraj Collins MD [facility] CPT-05576 Level 3 Est. Patient 15:19:43 CDT Renzo Thornton DO [facility] CPT-36077 Level 3 Est. Patient 18:10:26 CDT Sahara Rodriguez MD [facility]-46263 Level 3 Est. Patient 14:49:50 CDT Vishal Hui MD [facility] CPT-64734 Level 4 Est. Patient 18:41:46 CDT Neeraj Collins MD [facility] CPT-34674 Level 4 Est. Patient 09:18:38 SCREED OPERATOR Vishal Hui MD [facility] CPT-41699 Level 3 Est. Patient 14:43:55 SCREED OPERATOR Vishal Hui MD [facility] CPT-80694 Level 3 Est. Patient 15:26:33 SCREED OPERATOR Sahara Rodriguez MD PhD [facility] CPT-14620 Level 3 Est. Patient 10:32:14 SCREED OPERATOR Vishal Hui MD [facility] CPT-49198 Level 3 Est. Patient 15:12:52 SCREED OPERATOR Vishal Hui MD [facility] CPT-61359 Level 4 Est. Patient 09:19:27 CDT Vishal Hui MD [facility] CPT-01788 Level 3 Est. Patient 15:53:00 CDT Renzo Thornton [facility] CPT-64411 Level 3 Est. Patient 15:50:30 CDT Renzo Thornton [facility] CPT-13143 Level 3 Est. Patient 16:55:24 CDT Vishal Hui MD [facility] Procedures Code Procedure Name Date Entry Date Standard Description CPT-88875 Abx/Therapy Injection 08:36:16 CDT CPT-06208 Wet Mount - LAB USE ONLY 17:44:58 CDT CPT-77399 UA w micro - LAB USE ONLY 17:44:58 CDT CPT-39667 CMP - LAB USE ONLY 17:44:58 CDT CPT-82880 Venipuncture Draw Fee 17:44:58 CDT CPT-71517 Cervical Min 4V - XRAY USE ONLY 09:01:40 CDT CPT-65064 Chest 2V Frontal and Lat - XRAY USE ONLY 11:06:31 CDT CPT-63071 EKG Trac and Interp - XRAY USE ONLY 11:31:43 CDT 08/26 CPT-J3420 Vitamin B12 1000mcg (Cyanocobalamin) 08:10:26 SCREED OPERATOR 04/12 CPT-50434 Abx/Therapy Injection 08:10:26 SCREED OPERATOR CPT-G0438 Initial Annual Wellness Exam 19:01:01 SCREED OPERATOR CPT-J3420 Vitamin B12 1000mcg (Cyanocobalamin) 16:57:46 CDT 08/14 CPT-22979 Recombivax HB Injection Suspension 5 MCG/0.5ML 08:37:50 SCREED OPERATOR CPT-56376 Immunization Single Admin 08:37:50 SCREED OPERATOR CPT-J3420 Vitamin B12 1000mcg (Cyanocobalamin) 08:32:16 SCREED OPERATOR 03/11 CPT-81684 Abx/Therapy Injection 08:32:16 SCREED OPERATOR CPT-75293 Chest 2V Frontal and Lat 11:46:38 SCREED OPERATOR CPT-22086 Venipuncture Draw Fee 09:12:45 SCREED OPERATOR CPT-J3420 Vitamin B12 1000mcg (Cyanocobalamin) 08:50:15 SCREED OPERATOR 02/08 CPT-37207 Abx/Therapy Injection 08:50:15 SCREED OPERATOR CPT-Cryo Cryotherapy 10:19:35 SCREED OPERATOR CPT-000 Give Appropriate Flu Vaccine 09:22:16 CDT CPT-J3420 Vitamin B12 1000mcg (Cyanocobalamin) 19:08:57 CDT 01/11 CPT-84226 Abx/Therapy Injection 19:08:57 CDT CPT-J3420 Vitamin B12 1000mcg (Cyanocobalamin) 08:19:08 CDT 12/11 CPT-75169 Abx/Therapy Injection 08:19:08 CDT CPT-J3420 Vitamin B12 1000mcg (Cyanocobalamin) 14:48:00 CDT 11/09 CPT-89493 Abx/Therapy Injection 14:47:59 CDT CPT-J3420 Vitamin B12 1000mcg (Cyanocobalamin) 08:34:04 CDT 10/09 CPT-94695 Abx/Therapy Injection 08:34:04 CDT CPT-J3420 Vitamin B12 1000mcg (Cyanocobalamin) 09:18:52 CDT 09/11 CPT-44671 Abx/Therapy Injection 09:18:52 CDT CPT-J3420 Vitamin B12 1000mcg (Cyanocobalamin) 08:35:44 CDT 09/04 CPT-34507 Abx/Therapy Injection 08:35:44 CDT CPT-38643 Immunization Single Admin 11:07:16 CDT CPT-25623 Hepatitis B adult IM 11:07:16 CDT CPT-J3420 Vitamin B12 1000mcg (Cyanocobalamin) 11:00:49 CDT 08/28 CPT-J1040 Depo Medrol 80 mg (Methyl Prednisolone Acetate) 11:00: 49 CDT CPT-01460 Abx/Therapy Injection 11:00:49 CDT CPT-J1040 Depo Medrol 80 mg (Methyl Prednisolone Acetate) 09:16: 23 CDT CPT-J3420 Vitamin B12 1000mcg (Cyanocobalamin) 08:27:05 CDT 08/20 CPT-22280 Abx/Therapy Injection 08:27:05 CDT CPT-59497 Recombivax HB Injection Suspension 5 MCG/0.5ML 10:00:41 CDT CPT-31768 Administration single or combination vaccine inc oral 10 :00:41 CDT CPT-27640 Sono transvag pelvis non OB uterus ovaries cervix 16:36: 57 CDT CPT-72444 LS spine comp w obliq 09:50:55 SCREED OPERATOR CPT-74438 Abd compl w upright 09:50:55 SCREED OPERATOR CPT-J1100 Decadron 4mg (Dexamethasone) 15:51:24 SCREED OPERATOR CPT-J1030 Depo Medrol 40 mg (Methyl Prednisolone Acetate) 15:51: 24 SCREED OPERATOR CPT-10642 Abx/Therapy Injection 15:51:24 SCREED OPERATOR CPT-J1100 Decadron 4mg (Dexamethasone) 15:26:33 SCREED OPERATOR CPT-J1030 Depo Medrol 40 mg (Methyl Prednisolone Acetate) 15:26: 33 SCREED OPERATOR CPT-06469 Sono retroperitoneal complete kidneys and bladder 17:15: 30 CDT CPT-00387 Abd compl w upright 16:09:25 CDT CPT-J1100 Decadron 8mg (Dexamethasone) 17:07:57 CDT CPT-31016 Abx/Therapy Injection 17:07:57 CDT CPT-J1100 Decadron 8mg (Dexamethasone) 16:55:24 CDT CPT-79634 Chest 2V Frontal and Lat 16:32:44 CDT
--- OUTSIDE RECORDS SUMMARY | 2016-11-04 18:32 | XMS REPORT | Clinical Summary ---
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 Juliet Kimbrough SLOPE HOIST OPERATOR Dependence on other enabling machines and devices Gait unsteady 781.2 Active uJliet Kimbrough SLOPE HOIST OPERATOR Abnormality of gait Pneumonia, organism unspecified ICD-486 [...] IM SUSR Injection once per month ARIPIPRAZOLE 71050953724 Active Juliet Kimbrough SLOPE HOIST OPERATOR Active PREDNISONE 20 MG TAB 2 tabs daily for 4 days, 1 tab daily for 4 days, 1/2 tab daily for 4 days PREDNISONE 59648052286 Active Vishal Hui MD Active IMITREX 50 MG ORAL TABS 1/2 tab every 6 hours prn SUMATRIPTAN SUCCINATE 84107288782 Active Jillina Mauricio WALTERSN Active AMBIEN 5 MG ORAL TABS 1 tab at bedtime ZOLPIDEM TARTRATE 61047176088 Active Jillina Mauricio WALTERSN Active PROZAC 20 MG ORAL CAPS 1 tab daily FLUOXETINE HCL 65541500610 Active Jillina Mauricio WALTERSN Active ABILIFY 15 MG ORAL TABS 1 tab daily ARIPIPRAZOLE 31457349283 Active Jillina Mauricio WALTERSN Active MINIPRESS 2 MG CAPS 4 cap po at night PRAZOSIN HCL 83670937830 Active Jillina Johnl SLOPE HOIST OPERATOR Active TOPAMAX 50 MG ORAL TABS 1 tab twice daily TOPIRAMATE 85424078138 Active Jillina Frazelephraim [employer] HOIST OPERATOR Active SAPHRIS 5 MG SUBL 1 po bid ASENAPINE MALEATE 94727454722 No Longer Active Jillina Frazell SLOPE HOIST OPERATOR Active LATUDA 80 MG TABS Take one by mouth daily LURASIDONE HCL 52829001795 No Longer Active Luigi Martínez APRN Active AMLODIPINE BESYLATE 5 MG TABS 1 tablet by mouth daily AMLODIPINE BESYLATE 85168161160 No Longer Active Luigi Martínez SLOPE HOIST OPERATOR Active AMITRIPTYLINE HCL 100 MG TAB one at hs AMITRIPTYLINE HCL 01606188680 No Longer Active Vishal Hui MD Active TRAZODONE HCL 100 MG TAB take 1 at bedtime TRAZODONE HCL 86966479809 No Longer Active Vishal Hui MD Active VYVANSE 40 MG CAPS 1 daily, LISDEXAMFETAMINE DIMESYLATE 98299343113 No Longer Active Vishal Hui MD Active IBUPROFEN 600 MG TAB 1 po TID PRN IBUPROFEN 16670349159 No Longer Active Vishal Hui MD Active MIRALAX PACK 1 po qd PRN Constipation POLYETHYLENE GLYCOL 3350 08282502235 Active Vishal Hui MD Active PROZAC 20 MG CAP Take one by mouth daily FLUOXETINE HCL 43706798919 No Longer Active Vishal Hui MD Active ZOFRAN 4 MG TABS 1 po q6hr PRN Nausea ONDANSETRON HCL Active Vishal Hui MD Active BACTRIM DS 800-160 MG TABS 1 pill by mouth twice daily SULFAMETHOXAZOLE-TRIMETHOPRIM 20717581978 No Longer Active Sahara Rodriguez MD PhD Active DIFLUCAN 150 MG TAB 1 tablet by mouth daily FLUCONAZOLE 27414271010 No Longer Active Vishal Hui MD Active TIZANIDINE HCL 4 MG TABS 1 po q6hr PRN Muscle Spasm/Back Pain TIZANIDINE HCL 43021908544 Active Luigi Martínez APRN Active CLINDAMYCIN HCL 150 MG CAPS 1 four times a day CLINDAMYCIN HCL 57026403158 No Longer Active Neeraj Collins MD Active KEFLEX 500 MG ORAL CAPS 1 cap QID by mouth CEPHALEXIN 02890413466 No Longer Active Neeraj Collins MD Active DIFLUCAN 150 MG TABS 1 pill every other day x 2 doses FLUCONAZOLE 22457070723 No Longer Active Sahara Rodriguez MD PhD Active MELATONIN 3 MG CAPS 2 po q hs MELATONIN 85966605541 No Longer Active Sahara Rodriguez MD PhD Active MULTIVITAMINS CAPS Take one by mouth daily MULTIPLE VITAMIN 48749465026 No Longer Active Sahara Rodriguez MD PhD Active BACTRIM DS 800-160 MG TAB 1 tab by mouth twice daily TRIMETHOPRIM-SULFAMETHOXAZOLE 45603185049 No Longer Active Sahara Rodriguez MD PhD Active [facility] PROBIOTIC ORAL CHEW 2 daily po PROBIOTIC PRODUCT 38698169598 No Longer Active Sahara Rodriguez MD PhD Active BACTRIM DS 800-160 MG TABS 1 po BID x 7 days SULFAMETHOXAZOLE-TRIMETHOPRIM 90796816931 No Longer Active Vishal Hui MD Active CHANTIX STARTING MONTH EARNEST 0.5 MG X 11 & 1 MG X 42 TABS 0.5mg daily for 3 days , then 0.5mg BID for 4 days, then 1mg BID VARENICLINE TARTRATE 36781518236 No Longer Active TAMARA Gray Active METOPROLOL TARTRATE 50 MG TAB 1 po bid METOPROLOL TARTRATE 64883637532 Active Vishal Hui MD Active VERAPAMIL HCL CR 120 MG TAB CR 1 po bid VERAPAMIL HCL 02986322482 No Longer Active Vishal Hui MD Active METOPROLOL SUCCINATE 50 MG TB24 1 tablet by mouth daily METOPROLOL SUCCINATE 85437252003 No Longer Active Vishal Hui MD Active TRAMADOL HCL 50 MG TABS 1-2 po TID PRN Pain TRAMADOL HCL 73159348075 Active Luigi Martínez APRN Active SAPHRIS 10 MG SUBL 1 tab po bid ASENAPINE MALEATE 05193076107 No Longer Active Vishal Hui MD Active LISINOPRIL 20 MG TABS 1 tab po qd LISINOPRIL 00689503247 No Longer Active Vishal Hui MD Active BENADRYL 25 MG CAP 2 po tid prn anxiety DIPHENHYDRAMINE HCL 28214515723 Active Vishal Hui MD Active LATUDA 20 MG TABS Take one by mouth daily LURASIDONE HCL 13940407367 No Longer Active Vishal Hui MD Active TRAZODONE HCL 50 MG TABS 1/2 tab po qd prn for anxiety TRAZODONE HCL 20370069295 No Longer Active Vishal Hui MD Active PIROXICAM 20 MG CAPS 1 cap po qd PRN Pain PIROXICAM 46109977894 Active Vishal Hui MD Active OMEPRAZOLE 20 MG TBEC 1 po q a.m. 30min prior to first food intake OMEPRAZOLE 91135573209 Active Vishal Hui MD Active RANITIDINE HCL 150 MG CAPS 1 twice a day RANITIDINE HCL 37975386608 Active Vishal Hui MD Active LINZESS 290 MCG CAPS Take one by mouth daily LINACLOTIDE 61952012628 No Longer Active Vishal Hui MD Active SAPHRIS 5 MG SUBL 1 tab po qd ASENAPINE MALEATE 65414260777 No Longer Active Vishal Hui MD Active ZALEPLON 10 MG CAPS 1 cap po every other night ZALEPLON 62267179016 No Longer Active Vishal Hui MD Active LYRICA 50 MG CAPS 1 tab po TID PREGABALIN 66822058448 No Longer Active Vishal Hui MD Active LORATADINE 10 MG TABS 1 tab po qd LORATADINE 85687078489 No Longer Active Vishal Hui MD Active VERAPAMIL HCL ER 180 MG CR-TABS 1 tab po bid VERAPAMIL HCL 43442331016 No Longer Active Vishal Hui MD Active MIRALAX POWD 1 capfull once daily POLYETHYLENE GLYCOL 3350 94349483011 No Longer Active Vishal Hui MD Active PREDNISONE 20 MG TABS 1 tab po qd PREDNISONE 07876935637 No Longer Active Renzo Thornton DO Active LEVOFLOXACIN 500 MG TABS 1 tab po qd LEVOFLOXACIN 92675289239 No Longer Active Renzo Thornton DO Active BUSPIRONE HCL 15 MG TABS 1 tab po TID BUSPIRONE HCL 46682893612 No Longer Active Renzo Thornton DO Active BENZTROPINE MESYLATE 1 MG TABS 1 tab po qd BENZTROPINE MESYLATE 10764249032 No Longer Active Renzo Thorntno DO Active ATENOLOL 25 MG TABS 1 tab po qd ATENOLOL 48893479849 No Longer Active Renzo Thornton DO Active ESCITALOPRAM OXALATE 20 MG TABS 1 tab po qd ESCITALOPRAM OXALATE 17412300365 No Longer Active Renzo Thornton DO Active ADVAIR DISKUS 250-50 MCG/DOSE AEPB 1 puff BID FLUTICASONE-SALMETEROL 56382916988 No Longer Active Renzo Thornton DO Active PREDNISONE 20 MG TAB 2 tabs daily for 3 days, 1 tab daily for 3 days, 1/2 tab daily for 2 days PREDNISONE 85084933081 No Longer Active Vishal Hui MD Active CEFDINIR 300 MG CAPS by mouth twice a day CEFDINIR 36655412668 No Longer Active Vishal Hui MD Active LANSOPRAZOLE 30 MG CPDR 1 cap po qd LANSOPRAZOLE 53141110149 No Longer Active Vishal Hui MD Active BACLOFEN 20 MG TABS 1 tab po tid BACLOFEN 96620479817 No Longer Active Vishal Hui MD Active ADVAIR DISKUS 250-50 MCG/DOSE AEPB 1 puff BID ADVAIR DISKUS 250-50 MCG/DOSE AEPB FLUTICASONE-SALMETEROL Inactive ESCITALOPRAM OXALATE 20 MG TABS 1 tab po qd ESCITALOPRAM OXALATE 20 MG TABS 719509 ESCITALOPRAM OXALATE Inactive ATENOLOL 25 MG TABS 1 tab po qd ATENOLOL 25 MG TABS 343841 ATENOLOL Inactive BENZTROPINE MESYLATE 1 MG TABS 1 tab po qd BENZTROPINE MESYLATE 1 MG TABS 446565 BENZTROPINE MESYLATE Inactive BUSPIRONE HCL 15 MG TABS 1 tab po TID BUSPIRONE HCL 15 MG TABS 358426 BUSPIRONE HCL Inactive LEVOFLOXACIN 500 MG TABS 1 tab po qd LEVOFLOXACIN 500 MG TABS 746643 LEVOFLOXACIN Inactive PREDNISONE 20 MG TABS 1 tab po qd PREDNISONE 20 MG TABS 741883 PREDNISONE Inactive MIRALAX POWD 1 capfull once daily MIRALAX POWD 671303 POLYETHYLENE GLYCOL 3350 Inactive VERAPAMIL HCL ER 180 MG CR-TABS 1 tab po bid VERAPAMIL HCL ER 180 MG CR-TABS VERAPAMIL HCL Inactive LORATADINE 10 MG TABS 1 tab po qd LORATADINE 10 MG TABS 442428 LORATADINE Inactive LYRICA 50 MG CAPS 1 tab po TID LYRICA 50 MG CAPS PREGABALIN Inactive ZALEPLON 10 MG CAPS 1 cap po every other night ZALEPLON 10 MG CAPS 951078 ZALEPLON Inactive SAPHRIS 5 MG SUBL 1 tab po qd SAPHRIS 5 MG SUBL ASENAPINE MALEATE Inactive TRAZODONE HCL 50 MG TABS 1/2 tab po qd prn for anxiety TRAZODONE HCL 50 MG TABS 149977 TRAZODONE HCL Inactive LATUDA 20 MG TABS Take one by mouth daily LATUDA 20 MG TABS LURASIDONE HCL Inactive LISINOPRIL 20 MG TABS 1 tab po qd LISINOPRIL 20 MG TABS 759440 LISINOPRIL Inactive SAPHRIS 10 MG SUBL 1 [...] twice daily BACTRIM DS 800-160 MG TAB 370150 TRIMETHOPRIM-SULFAMETHOXAZOLE Inactive MULTIVITAMINS CAPS Take one by mouth daily MULTIVITAMINS CAPS MULTIPLE VITAMIN Inactive MELATONIN 3 MG CAPS 2 po q hs MELATONIN 3 MG CAPS 700785 MELATONIN Inactive KEFLEX 500 MG ORAL CAPS 1 cap QID by mouth KEFLEX 500 MG ORAL CAPS 676067 CEPHALEXIN Inactive CLINDAMYCIN HCL 150 MG CAPS 1 four times a day CLINDAMYCIN HCL 150 MG CAPS 750364 CLINDAMYCIN HCL Inactive DIFLUCAN 150 MG TAB 1 tablet by mouth daily DIFLUCAN 150 MG TAB 939948 FLUCONAZOLE Inactive PROZAC 20 MG CAP Take one by mouth daily PROZAC 20 MG CAP 537761 FLUOXETINE HCL Inactive IBUPROFEN 600 MG TAB 1 po TID PRN IBUPROFEN 600 MG TAB 666436 IBUPROFEN Inactive VYVANSE 40 MG CAPS 1 daily, VYVANSE 40 MG CAPS LISDEXAMFETAMINE DIMESYLATE Inactive TRAZODONE HCL 100 MG TAB take 1 at bedtime TRAZODONE HCL 100 MG TAB 744863 TRAZODONE HCL Inactive AMITRIPTYLINE HCL 100 MG TAB one at hs AMITRIPTYLINE HCL 100 MG TAB 564137 AMITRIPTYLINE HCL Inactive AMLODIPINE BESYLATE 5 MG TABS 1 tablet by mouth daily AMLODIPINE BESYLATE 5 MG TABS 054222 AMLODIPINE BESYLATE Inactive LATUDA 80 MG TABS Take one by mouth daily LATUDA 80 MG TABS LURASIDONE HCL Inactive SAPHRIS 5 MG SUBL 1 po bid SAPHRIS 5 MG SUBL ASENAPINE MALEATE Inactive CEFDINIR 300 MG CAPS by mouth twice a day CEFDINIR 300 MG CAPS 359372 CEFDINIR Inactive PREDNISONE 20 MG TAB 2 tabs daily for 3 days, 1 tab daily for 3 days, 1/2 tab daily for 2 days PREDNISONE 20 MG TAB 957031 PREDNISONE Inactive BACTRIM DS 800-160 MG TABS 1 po BID x 7 days BACTRIM DS 800-160 MG TABS 19820521 SULFAMETHOXAZOLE-TRIMETHOPRIM Inactive DIFLUCAN 150 MG TABS 1 pill every other day x 2 doses DIFLUCAN 150 MG TABS 351108 FLUCONAZOLE Inactive BACTRIM DS 800-160 MG TABS [...] % 11.6-14.8 platelet count 394 10^3/MM^3 10*3/mm3 536-498 1410/12/22 leukocyte count, blood 10.5 10^3/MM^3 10*3/mm3 4.6-10.2 [...] Panel - Chemistry sodium, serum 139 mmol/L 805-614 6786/12/03 carbon dioxide, venous blood 28.5 mmol/L 21.0-32.0 [...] 5.5 % 4.3-6.0 cholesterol, serum 159 mg/dL 184-578 5927/12/03 triglyceride, serum, fasting 118 mg/dL 30-200 HDL cholesterol, serum 45 mg/dL 32-96 LDL cholesterol, serum 90 mg/dL 0-130 Lab Report: CBC W/DIFF, Comp. Metabolic Panel, HGBA1C, Lipid Panel - Hematology neutrophils as percent of blood leukocytes 62.7 % 42.2-75.2 monocytes as percent of blood leukocytes 8.0 % 1.7-9.3 leukocyte count, blood 12.5 10^3/MM^3 10*3/mm3 4.6-10.2 hematocrit, blood 40.8 % 36.0-46.0 mean corpuscular volume, RBC 93 fL 80-97 mean corpuscular hemoglobin, RBC 31.6 pg 27.0-31.2 mean corpuscular hemoglobin concentration, RBC 34.0 G/DL % 31.8- 35.4 red blood cell distribution width 12.8 % 11.6-14.8 platelet count 362 10^3/MM^3 10*3/mm3 879-074 6766/12/03 lymphocytes as percent of blood leukocytes 26.7 % 20.5-51.1 erythrocyte (RBC) count 4.38 10^6/MM^3 10*6/mm3 4.04-5.48 hemoglobin, blood 13.8 g/dL 12.0-16.0 Lab Report: CBC, Comp. Metabolic Panel, Free Thyroxine (L), Thyroid Stim ... - Chemistry sodium, serum 140 mmol/L 258-156 4540/05/28 potassium, serum 4.2 mmol/L 3.5-5.2 chloride, serum [...] Panel - Chemistry sodium, serum 141 mmol/L 360-608 7011 potassium, serum 4.3 mmol/L 3.5-5.2 chloride, serum 106 mmol/L 98-107 carbon dioxide, venous blood 25.7 mmol/L 21.0-32.0 blood glucose 119 mg/dL 65-110 urea nitrogen, blood 22 mg/dL 7-18 creatinine, serum 0.90 mg/dL 0.60-1.30 alanine aminotransferase (SGPT), serum 28 U/L -78 aspartate aminotransferase (SGOT), serum 13 U/L 15-37 calcium, serum 8.5 mg/dL 8.5-10.1 bilirubin, serum, total 0.20 mg/dL 0.00-1.00 potassium, serum 4.2 mmol/L 3.5-5.2 creatinine, serum 0.90 mg/dL 0.55-1.30 alanine aminotransferase (SGPT), serum 38 U/L -78 aspartate aminotransferase (SGOT), serum 19 U/L 15-37 calcium, serum 8.6 mg/dL 8.5-10.1 bilirubin, serum, total 0.30 mg/dL 0.00-1.00 chloride, serum 103 mmol/L 98-107 blood glucose 115 mg/dL 65-110 urea nitrogen, blood 20 mg/dL 7-18 sodium, serum 139 mmol/L 595-399 0190/12/22 carbon dioxide, venous blood 26.8 mmol/L 21.0-32.0 sodium, serum 139 mmol/L 819-490 8611/01/11 carbon dioxide, venous blood 26.6 mmol/L 21.0-32.0 [...] Rate - Chemistry sodium, serum 139 mmol/L 402-107 8241/12/11 carbon dioxide, venous blood 25.4 mmol/L 21.0-32.0 [...] Report: MonoSpot, UADIP W/MICRO, AUTO - Urinalysis urine color Yellow Colorless;Lightyellow;Straw;Yellow ketones, urine, by test strip Negative Negative bilirubin, urine Negative Negative urobilinogen, urine, semiquantitative (dipstick) 0.2 Normal leukocyte esterase, urine, by dipstick Negative Negative nitrite, urine, semiquantitative Negative Negative glucose, urine, semiquantitative Negative Negative appearance, urine SlCloudy [...] semiquantitative 5.5 5.0-8.5 appearance, urine Clear Clear urobilinogen, urine, semiquantitative (dipstick) 0.2 Normal leukocyte esterase, urine, by dipstick Negative Negative nitrite, urine, semiquantitative Negative Negative Lab Report: [place] W/MI[place], [place] [facility] [place] Chemistry protein, total urine random Negative mg/dL Negative RBC, urine, dipstick Negative Negative human chorionic gonadotropin, urine, qualitative (urine test) Negative Negative Lab Report: UADIP W/MICRO, AUTO, UHCG - Urinalysis leukocyte esterase, urine, by dipstick Negative Negative nitrite, urine, semiquantitative Negative Negative bilirubin, urine Negative Negative ketones, urine, by test strip Negative Negative glucose, urine, semiquantitative Negative Negative pH, urine, semiquantitative 7.0 5.0-8.5 specific gravity, urine 1.025 1.000-1.030 appearance, urine Clear Clear urine color Yellow Colorless;Lightyellow;Straw;Yellow urobilinogen, urine, semiquantitative (dipstick) 0.2 Normal Lab Report: Varicella-Zoater Inga IgG,IgM/91131, HEP Be Antibody/556, RUB ... - Serology rubella antibody, serum, IgG 2.88 Encounters Code Encounter Date Provider Facility CPT-69334 Level 4 Est. Patient 09:00:51 GLYCERIN SUPERVISOR Vishal Hui MD [facility]-10603 Level 3 Est. Patient 11:37:33 GLYCERIN SUPERVISOR Vishal Hui MD [facility] CPT-20328 Level 3 Est. Patient 08:41:09 GLYCERIN SUPERVISOR Vishal Hui MD [facility]-63037 Level 4 Est. Patient 10:19:35 GLYCERIN SUPERVISOR Vishal Hui MD [facility] CPT-70039 Level 3 Est. Patient 13:35:45 CDT Vishal Hui MD [facility] CPT-12118 Level 4 Est. Patient 10:08:37 CDT Vishal Hiu MD [facility] CPT-14652 Level 3 Est. Patient 11:22:10 CDT Vishal Hui MD [facility] CPT-12268 Level 3 Est. Patient 11:03:32 CDT Sahara Rodriguez MD PhD [facility]-42092 Level 3 Est. Patient 09:41:35 CDT Vishal Hui MD [facility] CPT-65635 Level 3 Est. Patient 12:00:41 CDT Neeraj Collins MD [facility] CPT-31760 Level 3 Est. Patient 09:16:24 CDT Vishal Hui MD [facility] CPT-58922 Level 4 Est. Patient 13:59:09 CDT Neeraj Collins MD [facility] CPT-95929 Level 3 Est. Patient 15:19:43 CDT Renzo Thornton DO [facility] CPT-95614 Level 3 Est. Patient 18:10:26 CDT Sahara Rodriguez MD [facility]-46839 Level 3 Est. Patient 14:49:50 CDT Vishal Hui MD [facility] CPT-57799 Level 4 Est. Patient 18:41:46 CDT Neeraj Collins MD [facility] CPT-39226 Level 4 Est. Patient 09:18:38 GLYCERIN SUPERVISOR Vishal Hui MD [facility]-34475 Level 3 Est. Patient 14:43:55 GLYCERIN SUPERVISOR Vishla Hui MD [facility] CPT-47398 Level 3 Est. Patient 15:26:33 GLYCERIN SUPERVISOR Sahara Rodriguez MD PhD [facility] CPT-93379 Level 3 Est. Patient 10:32:14 GLYCERIN SUPERVISOR Vishal Hui MD [facility] CPT-28650 Level 3 Est. Patient 15:12:52 GLYCERIN SUPERVISOR Vishal Hui MD [facility]-19375 Level 4 Est. Patient 09:19:27 CDT Vishal Hui MD [facility] CPT-39638 Level 3 Est. Patient 15:53:00 CDT Renzo W Norberto [facility] CPT-19755 Level 3 Est. Patient 15:50:30 CDT Renzo Thornton [facility] CPT-90201 Level 3 Est. Patient 16:55:24 CDT Vishal Hui MD [facility] Procedures Code Procedure Name Date Entry Date Standard Description CPT-G0438 Initial Annual Wellness Exam 19:01:01 GLYCERIN SUPERVISOR CPT-J3420 Vitamin B12 1000mcg (Cyanocobalamin) 16:57:46 CDT 08/14 CPT-61925 Recombivax HB Injection Suspension 5 MCG/0.5ML 08:37:50 GLYCERIN SUPERVISOR CPT-87951 Immunization Single Admin 08:37:50 GLYCERIN SUPERVISOR CPT-J3420 Vitamin B12 1000mcg (Cyanocobalamin) 08:32:16 GLYCERIN SUPERVISOR 03/11 CPT-05300 Abx/Therapy Injection 08:32:16 GLYCERIN SUPERVISOR CPT-87625 Chest 2V Frontal and Lat 11:46:38 GLYCERIN SUPERVISOR CPT-49267 Venipuncture Draw Fee 09:12:45 GLYCERIN SUPERVISOR CPT-J3420 Vitamin B12 1000mcg (Cyanocobalamin) 08:50:15 GLYCERIN SUPERVISOR 02/08 CPT-34463 Abx/Therapy Injection 08:50:15 GLYCERIN SUPERVISOR CPT-Cryo Cryotherapy 10:19:35 GLYCERIN SUPERVISOR CPT-000 Give Appropriate Flu Vaccine 09:22:16 CDT CPT-J3420 Vitamin B12 1000mcg (Cyanocobalamin) 19:08:57 CDT 01/11 CPT-79861 Abx/Therapy Injection 19:08:57 CDT CPT-J3420 Vitamin B12 1000mcg (Cyanocobalamin) 08:19:08 CDT 12/11 CPT-61705 Abx/Therapy Injection 08:19:08 CDT CPT-J3420 Vitamin B12 1000mcg (Cyanocobalamin) 14:48:00 CDT 11/09 CPT-31994 Abx/Therapy Injection 14:47:59 CDT CPT-J3420 Vitamin B12 1000mcg (Cyanocobalamin) 08:34:04 CDT 10/09 CPT-62928 Abx/Therapy Injection 08:34:04 CDT CPT-J3420 Vitamin B12 1000mcg (Cyanocobalamin) 09:18:52 CDT 09/11 CPT-91271 Abx/Therapy Injection 09:18:52 CDT CPT-J3420 Vitamin B12 1000mcg (Cyanocobalamin) 08:35:44 CDT 09/04 CPT-95338 Abx/Therapy Injection 08:35:44 CDT CPT-19546 Immunization Single Admin 11:07:16 CDT CPT-12261 Hepatitis B adult IM 11:07:16 CDT CPT-J3420 Vitamin B12 1000mcg (Cyanocobalamin) 11:00:49 CDT 08/28 CPT-J1040 Depo Medrol 80 mg (Methyl Prednisolone Acetate) 11:00: 49 CDT CPT-48328 Abx/Therapy Injection 11:00:49 CDT CPT-J1040 Depo Medrol 80 mg (Methyl Prednisolone Acetate) 09:16: 23 CDT CPT-J3420 Vitamin B12 1000mcg (Cyanocobalamin) 08:27:05 CDT 08/20 CPT-17553 Abx/Therapy Injection 08:27:05 CDT CPT-93744 Recombivax HB Injection Suspension 5 MCG/0.5ML 10:00:41 CDT CPT-65707 Administration single or combination vaccine inc oral 10 :00:41 CDT CPT-76397 Sono transvag pelvis non OB uterus ovaries cervix 16:36: 57 CDT CPT-84088 LS spine comp w obliq 09:50:55 GLYCERIN SUPERVISOR CPT-62741 Abd compl w upright 09:50:55 GLYCERIN SUPERVISOR CPT-J1100 Decadron 4mg (Dexamethasone) 15:51:24 GLYCERIN SUPERVISOR CPT-J1030 Depo Medrol 40 mg (Methyl Prednisolone Acetate) 15:51: 24 GLYCERIN SUPERVISOR CPT-45793 Abx/Therapy Injection 15:51:24 GLYCERIN SUPERVISOR CPT-J1100 Decadron 4mg (Dexamethasone) 15:26:33 GLYCERIN SUPERVISOR CPT-J1030 Depo Medrol 40 mg (Methyl Prednisolone Acetate) 15:26: 33 GLYCERIN SUPERVISOR CPT-95472 Sono retroperitoneal complete kidneys and bladder 17:15: 30 CDT CPT-62918 Abd compl w upright 16:09:25 CDT CPT-J1100 Decadron 8mg (Dexamethasone) 17:07:57 CDT CPT-30088 Abx/Therapy Injection 17:07:57 CDT CPT-J1100 Decadron 8mg (Dexamethasone) 16:55:24 CDT CPT-59650 Chest 2V Frontal and Lat 16:32:44 CDT
--- OUTSIDE RECORDS SUMMARY | 2016-11-04 18:35 | XMS REPORT | Clinical Summary ---
Author Author Admin, Dereck Organization [facility] Address Unknown Phone Unavailable Allergies, Adverse Reactions, Alerts Allergy Name Reaction Description Start Date Severity Status Provider REQUIP Unsure of reaction, states that she was in severe pain Critical Active Ahemt Carbajal MD AMITRIPTYLINE HCL Mood changes. LDA [...] sites Morbid obesity 278.01 Active Juliet Kimbrough CHAIR CANER Morbid obesity 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 Active Juliet Kimbrough CHAIR CANER Dependence on other enabling machines and devices [...] Shortness of breath 786.05 Active Fabiola Johnson CHAIR CANER Shortness of breath Nocturnal hypoxia 799.02 Active Fabiola Johnson CHAIR CANER Hypoxemia Neck pain 723.1 Active Pacolljanee Martínez CHAIR CANER Cervicalgia Vaginal discharge 623.5 Active Neeraj Collins [...] cessation discussed ICD-305.1 Inactive Vishal Hui MD Cellulitis ICD-682.9 Inactive Vishal Hui MD Pelvic pain ICD-625.9 Jim Hui MD Abscess, skin ICD-682.9 Inactive Vishal Hui MD Physical examination ICD-V70.0 Inactive Vishal Hui MD Abdominal pain ICD-789.00 Inactive Vishal Hui MD Vaginitis ICD-616.10 Inactive Vishal Hui MD Vaginitis, candidal ICD-112.1 Inactive Vishal Hui MD Other abnormal blood chemistry ICD-790.6 Jim Hui MD 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 Inactive Vishal Hui MD Boils, recurrent ICD-680.9 Jim Hui MD Postconcussion syndrome ICD-310.2 Inactive Vishal Hui MD Nevus, 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 Jim Hui MD Encounter for removal of sutures ICD-V58.32 Inactive Vishal Hui MD Fatigue ICD-780.79 Jim [...] Gait unsteady ICD-781.2 Inactive Albert Caldera MD Medication List Medication Instructions Start Date Stop Date Generic Name NDC Status Provider Patient Instruction KENN MAINTENA 400 MG IM SUSR 400mg injection every 28 days ARIPIPRAZOLE 78030691256 Active Silvia Casey LPN Active FLAGYL 500 MG TAB 1 tablet by mouth bid METRONIDAZOLE 60547294065 Active Olimpia Raida Active FLUTICASONE PROPIONATE 50 MCG/ACT SUSP 2 sprays each nostril daily before bed. FLUTICASONE PROPIONATE 64620096330 Active Fabiola Johnson APRN Active VERAPAMIL HCL ER 120 MG ORAL CR-TABS 1 tab po daily for blood pressure 09/27 VERAPAMIL HCL 48944137373 Active Fabiola Johnson APRN Active ADZENYS XR-ODT 6.3 MG ORAL TBED 1 tab po daily for ADHD AMPHETAMINE 33340905801 Active Fabiola Johnson APRN Active BENADRYL 25 MG CAP 4 po at bedtime for insomnia DIPHENHYDRAMINE HCL 90076666446 Active Fabiola Johnson APRN Active KLONOPIN 1 MG ORAL TABS 1 tab po TID CLONAZEPAM 29857923859 Active Fabiola Johnson APRN Active VALIUM 5 MG TAB Take 1-2 tablets daily DIAZEPAM 65400189969 No Longer Active Fabiola Johnson APRN Active METOPROLOL TARTRATE 25 MG ORAL TABS 1/2 tablet twice daily for heart rate and blood pressure METOPROLOL TARTRATE 16946800589 No Longer Active Fabiola Johnson APRN Active MIRALAX ORAL POWD 17GMS DAILY IN WATER POLYETHYLENE GLYCOL 3350 88050711558 Active Vishal Hui MD Active VIIBRYD 10 MG ORAL TABS Take 1 tablet once a day VILAZODONE HCL 50500912466 Active Ahmet Carbajal MD Active DICLOFENAC POTASSIUM TABS Take 1 tablet twice a day (pt. is not sure of the dose.) DICLOFENAC POTASSIUM TABS 91161735539 Active Ahmet Carbajal MD Active MIRALAX PACK 1 po qd PRN Constipation POLYETHYLENE GLYCOL 3350 80879048879 No Longer Active Ahmet Carbajal MD Active MINIPRESS 2 MG CAPS 4 cap po at night PRAZOSIN HCL 00067227919 No Longer Active Ahmet Carbajal MD Active PIROXICAM 20 MG CAPS 1 cap po qd PRN Pain PIROXICAM 32449999103 No Longer Active Ahmet Carbajal MD Active TRAMADOL HCL 50 MG TABS 1-2 po TID PRN Pain TRAMADOL HCL 02583447155 No Longer Active Ahmet Carbajal MD Active METOPROLOL TARTRATE 50 MG TAB 1 po bid METOPROLOL TARTRATE 93429127129 No Longer Active Ahmet Carbajal MD Active ABILIFY 15 MG ORAL TABS 1 tab daily ARIPIPRAZOLE 58378828962 No Longer Active Ahmet Carbajal MD Active PROZAC 20 MG ORAL CAPS 1 tab daily FLUOXETINE HCL 88740326881 No Longer Active Ahmet Carbajal MD Active AMBIEN 5 MG ORAL TABS 1 tab at bedtime ZOLPIDEM TARTRATE 49772334303 No Longer Active Ahmet Carbajal MD Active PREDNISONE 20 MG TAB 2 tabs daily for 4 days, 1 tab daily for 4 days, 1/2 tab daily for 4 days PREDNISONE 92026894257 No Longer Active Ahmet Carbajal MD Active KEFLEX 500 MG CAP 1 po TID x 10 days CEPHALEXIN 91352501116 No Longer Active Vishal Hui MD Active IMITREX 50 MG ORAL TABS 1/2 tab every 6 hours prn SUMATRIPTAN SUCCINATE 04018877836 Active Luigi Martínez CHAIR CANER Active TOPAMAX 50 MG ORAL TABS 1 tab twice daily TOPIRAMATE 29541885816 Active Vishal Hui MD Active SAPHRIS 5 MG SUBL 1 po bid ASENAPINE MALEATE 26506832092 No Longer Active Luigi Martínez APRN Active LATUDA 80 MG TABS Take one by mouth daily LURASIDONE HCL 52304280863 No Longer Active Luigi Martínez APRN Active AMLODIPINE BESYLATE 5 MG TABS 1 tablet by mouth daily AMLODIPINE BESYLATE 64436804136 No Longer Active Luigi Martínez CHAIR CANER Active AMITRIPTYLINE HCL 100 MG TAB one at hs AMITRIPTYLINE HCL 11678669726 No Longer Active Vishal Hui MD Active TRAZODONE HCL 100 MG TAB take 1 at bedtime TRAZODONE HCL 87482093323 No Longer Active Vishal Hui MD Active VYVANSE 40 MG CAPS 1 daily, LISDEXAMFETAMINE DIMESYLATE 76839110428 No Longer Active Vishal Hui MD Active IBUPROFEN 600 MG TAB 1 po TID PRN IBUPROFEN 23399901567 No Longer Active Vishal Hui MD Active PROZAC 20 MG CAP Take one by mouth daily FLUOXETINE HCL 04605121801 No Longer Active Vishal Hui MD Active ZOFRAN 4 MG TABS 1 po q6hr PRN Nausea ONDANSETRON HCL Active Vishal Hui MD Active BACTRIM DS 800-160 MG TABS 1 pill by mouth twice daily SULFAMETHOXAZOLE-TRIMETHOPRIM 22464506427 No Longer Active Sahara Rodriguez MD PhD Active DIFLUCAN 150 MG TAB 1 tablet by mouth daily FLUCONAZOLE 33492404886 No Longer Active Vishal Hui MD Active TIZANIDINE HCL 4 MG TABS 1 po q6hr PRN Muscle Spasm/Back Pain TIZANIDINE HCL 99602742163 Active Vishal Hui MD Active CLINDAMYCIN HCL 150 MG CAPS 1 four times a day CLINDAMYCIN HCL 43769575672 No Longer Active Neeraj Collins MD Active KEFLEX 500 MG ORAL CAPS 1 cap QID by mouth CEPHALEXIN 54708561794 No Longer Active Neeraj Collins MD Active DIFLUCAN 150 MG TABS 1 pill every other day x 2 doses FLUCONAZOLE 08008822871 No Longer Active Sahara Rodriguez MD PhD Active MELATONIN 3 MG CAPS 2 po q hs MELATONIN 64857396155 No Longer Active Sahara Rodriguez MD PhD Active MULTIVITAMINS CAPS Take one by mouth daily MULTIPLE VITAMIN 47664271713 No Longer Active Sahara Rodriguez MD PhD Active BACTRIM DS 800-160 MG TAB 1 tab by mouth twice daily TRIMETHOPRIM-SULFAMETHOXAZOLE 01365079753 No Longer Active Sahara Rodriguez MD PhD Active [facility] PROBIOTIC ORAL CHEW 2 daily po PROBIOTIC PRODUCT 12192159975 No Longer Active Sahara Rodriguez MD PhD Active BACTRIM DS 800-160 MG TABS 1 po BID x 7 days SULFAMETHOXAZOLE-TRIMETHOPRIM 69922920876 No Longer Active Vishal uHi MD Active CHANTIX STARTING MONTH EARNEST 0.5 MG X 11 & 1 MG X 42 TABS 0.5mg daily for 3 days , then 0.5mg BID for 4 days, then 1mg BID VARENICLINE TARTRATE 14040228334 No Longer Active TAMARA Gray Active VERAPAMIL HCL CR 120 MG TAB CR 1 po bid VERAPAMIL HCL 94506509876 No Longer Active Vishal Hui MD Active METOPROLOL SUCCINATE 50 MG TB24 1 tablet by mouth daily METOPROLOL SUCCINATE 24372144798 No Longer Active Vishal Hui MD Active SAPHRIS 10 MG SUBL 1 tab po bid ASENAPINE MALEATE 05231223167 No Longer Active Vishal Hui MD Active LISINOPRIL 20 MG TABS 1 tab po qd LISINOPRIL 34720971128 No Longer Active Vishal Hui MD Active LATUDA 20 MG TABS Take one by mouth daily LURASIDONE HCL 59975272857 No Longer Active Vishal Hui MD Active TRAZODONE HCL 50 MG TABS 1/2 tab po qd prn for anxiety TRAZODONE HCL 52450144315 No Longer Active Vishal Hui MD Active OMEPRAZOLE 20 MG TBEC 1 po q a.m. 30min prior to first food intake OMEPRAZOLE 50268671785 Active Vishal Hui MD Active RANITIDINE HCL 150 MG CAPS 1 twice a day RANITIDINE HCL 49622202748 Active Jilljanee Martínez APRN Active LINZESS 290 MCG CAPS Take one by mouth daily LINACLOTIDE 34168692945 No Longer Active Vishal Hui MD Active SAPHRIS 5 MG SUBL 1 tab po qd ASENAPINE MALEATE 53294688304 No Longer Active Vishal Hui MD Active ZALEPLON 10 MG CAPS 1 cap po every other night ZALEPLON 17099544240 No Longer Active Vishal Hui MD Active LYRICA 50 MG CAPS 1 tab po TID PREGABALIN 14870683944 No Longer Active Vishal Hui MD Active LORATADINE 10 MG TABS 1 tab po qd LORATADINE 04004679265 No Longer Active Vishal Hui MD Active VERAPAMIL HCL ER 180 MG CR-TABS 1 tab po bid VERAPAMIL HCL 68848993981 No Longer Active Vishal Hui MD Active MIRALAX POWD 1 capfull once daily POLYETHYLENE GLYCOL 3350 55049336335 No Longer Active Vishal Hui MD Active PREDNISONE 20 MG TABS 1 tab po qd PREDNISONE 73594822903 No Longer Active Renzo Thornton DO Active LEVOFLOXACIN 500 MG TABS 1 tab po qd LEVOFLOXACIN 78071878083 No Longer Active Renzo Thornton DO Active BUSPIRONE HCL 15 MG TABS 1 tab po TID BUSPIRONE HCL 45927802195 No Longer Active Renzo Thornton DO Active BENZTROPINE MESYLATE 1 MG TABS 1 tab po qd BENZTROPINE MESYLATE 57738481423 No Longer Active Renzo Thornton DO Active ATENOLOL 25 MG TABS 1 tab po qd ATENOLOL 37147657570 No Longer Active Renzo Thornton DO Active ESCITALOPRAM OXALATE 20 MG TABS 1 tab po qd ESCITALOPRAM OXALATE 20340192179 No Longer Active Renzo Thornton DO Active ADVAIR DISKUS 250-50 MCG/DOSE AEPB 1 puff BID FLUTICASONE-SALMETEROL 29003250495 No Longer Active Renzo Thornton DO Active PREDNISONE 20 MG TAB 2 tabs daily for 3 days, 1 tab daily for 3 days, 1/2 tab daily for 2 days PREDNISONE 68434539076 No Longer Active Vishal Hui MD Active CEFDINIR 300 MG CAPS by mouth twice a day CEFDINIR 70928850773 No Longer Active Vishal Hui MD Active LANSOPRAZOLE 30 MG CPDR 1 cap po qd LANSOPRAZOLE 13820088938 No Longer Active Vishal Hui MD Active BACLOFEN 20 MG TABS 1 tab po tid BACLOFEN 08124599933 No Longer Active Vishal Hui MD Active ADVAIR DISKUS 250-50 MCG/DOSE AEPB 1 puff BID ADVAIR DISKUS 250-50 MCG/DOSE AEPB FLUTICASONE-SALMETEROL Inactive ESCITALOPRAM OXALATE 20 MG TABS 1 tab po qd ESCITALOPRAM OXALATE 20 MG TABS 996201 ESCITALOPRAM OXALATE Inactive ATENOLOL 25 MG TABS 1 tab po qd ATENOLOL 25 MG TABS 575741 ATENOLOL Inactive BENZTROPINE MESYLATE 1 MG TABS 1 tab po qd BENZTROPINE MESYLATE 1 MG TABS 834926 BENZTROPINE MESYLATE Inactive BUSPIRONE HCL 15 MG TABS 1 tab po TID BUSPIRONE HCL 15 MG TABS 168160 BUSPIRONE HCL Inactive LEVOFLOXACIN 500 MG TABS 1 tab po qd LEVOFLOXACIN 500 MG TABS 193530 LEVOFLOXACIN Inactive PREDNISONE 20 MG TABS 1 tab po qd PREDNISONE 20 MG TABS 919869 PREDNISONE Inactive MIRALAX POWD 1 capfull once daily MIRALAX POWD 820781 POLYETHYLENE GLYCOL 3350 Inactive VERAPAMIL HCL ER 180 MG CR-TABS 1 tab po bid VERAPAMIL HCL ER 180 MG CR-TABS VERAPAMIL HCL Inactive LORATADINE 10 MG TABS 1 tab po qd LORATADINE 10 MG TABS 168705 LORATADINE Inactive LYRICA 50 MG CAPS 1 tab po TID LYRICA 50 MG CAPS PREGABALIN Inactive ZALEPLON 10 MG CAPS 1 cap po every other night ZALEPLON 10 MG CAPS 045129 ZALEPLON Inactive SAPHRIS 5 MG SUBL 1 tab po qd SAPHRIS 5 MG SUBL ASENAPINE MALEATE Inactive TRAZODONE HCL 50 MG TABS 1/2 tab po qd prn for anxiety TRAZODONE HCL 50 MG TABS 723463 TRAZODONE HCL Inactive LATUDA 20 MG TABS Take one by mouth daily LATUDA 20 MG TABS LURASIDONE HCL Inactive LISINOPRIL 20 MG TABS 1 tab po qd LISINOPRIL 20 MG TABS 089995 LISINOPRIL Inactive SAPHRIS 10 MG SUBL 1 [...] twice daily BACTRIM DS 800-160 MG TAB 538001 TRIMETHOPRIM-SULFAMETHOXAZOLE Inactive MULTIVITAMINS CAPS Take one by mouth daily MULTIVITAMINS CAPS MULTIPLE VITAMIN Inactive MELATONIN 3 MG CAPS 2 po q hs MELATONIN 3 MG CAPS 741428 MELATONIN Inactive KEFLEX 500 MG ORAL CAPS 1 cap QID by mouth KEFLEX 500 MG ORAL CAPS 611214 CEPHALEXIN Inactive CLINDAMYCIN HCL 150 MG CAPS 1 four times a day CLINDAMYCIN HCL 150 MG CAPS 217816 CLINDAMYCIN HCL Inactive DIFLUCAN 150 MG TAB 1 tablet by mouth daily DIFLUCAN 150 MG TAB 502056 FLUCONAZOLE Inactive PROZAC 20 MG CAP Take one by mouth daily PROZAC 20 MG CAP 115267 FLUOXETINE HCL Inactive IBUPROFEN 600 MG TAB 1 po TID PRN IBUPROFEN 600 MG TAB 709831 IBUPROFEN Inactive VYVANSE 40 MG CAPS 1 daily, VYVANSE 40 MG CAPS LISDEXAMFETAMINE DIMESYLATE Inactive TRAZODONE HCL 100 MG TAB take 1 at bedtime TRAZODONE HCL 100 MG TAB 260407 TRAZODONE HCL Inactive AMITRIPTYLINE HCL 100 MG TAB one at hs AMITRIPTYLINE HCL 100 MG TAB 643596 AMITRIPTYLINE HCL Inactive AMLODIPINE BESYLATE 5 MG TABS 1 tablet by mouth daily AMLODIPINE BESYLATE 5 MG TABS 574405 AMLODIPINE BESYLATE Inactive LATUDA 80 MG TABS Take one by mouth daily LATUDA 80 MG TABS LURASIDONE HCL Inactive SAPHRIS 5 MG SUBL 1 po bid SAPHRIS 5 MG SUBL ASENAPINE MALEATE Inactive PREDNISONE 20 MG TAB 2 tabs daily for 4 days, 1 tab daily for 4 days, 1/2 tab daily for 4 days PREDNISONE 20 MG TAB 062714 PREDNISONE Inactive AMBIEN 5 MG ORAL TABS 1 tab at bedtime AMBIEN 5 MG ORAL TABS 681842 ZOLPIDEM TARTRATE Inactive PROZAC 20 MG ORAL CAPS 1 tab daily PROZAC 20 MG ORAL CAPS 809593 FLUOXETINE HCL Inactive ABILIFY 15 MG ORAL TABS 1 tab daily ABILIFY 15 MG ORAL TABS 337340 ARIPIPRAZOLE Inactive METOPROLOL TARTRATE 50 MG TAB 1 po bid METOPROLOL TARTRATE 50 MG TAB 372385 METOPROLOL TARTRATE Inactive TRAMADOL HCL 50 MG TABS 1-2 po TID PRN Pain TRAMADOL HCL 50 MG TABS 049207 TRAMADOL HCL Inactive PIROXICAM 20 MG CAPS 1 cap po qd PRN Pain PIROXICAM 20 MG CAPS 446843 PIROXICAM Inactive MINIPRESS 2 MG CAPS 4 cap po at night MINIPRESS 2 MG CAPS 344663 PRAZOSIN HCL Inactive MIRALAX PACK 1 po qd PRN Constipation MIRALAX PACK 882773 POLYETHYLENE GLYCOL 3350 Inactive METOPROLOL TARTRATE 25 MG ORAL TABS 1/2 tablet twice daily for heart rate and blood pressure METOPROLOL TARTRATE 25 MG ORAL TABS 626609 METOPROLOL TARTRATE Inactive VALIUM 5 MG TAB Take 1-2 tablets daily VALIUM 5 MG TAB 045170 DIAZEPAM Inactive CEFDINIR 300 MG CAPS by mouth twice a day CEFDINIR 300 MG CAPS 250673 CEFDINIR Inactive PREDNISONE 20 MG TAB 2 tabs daily for 3 days, 1 tab daily for 3 days, 1/2 tab daily for 2 days PREDNISONE 20 MG TAB 841388 PREDNISONE Inactive BACTRIM DS 800-160 MG TABS 1 po BID x 7 days BACTRIM DS 800-160 MG TABS 19820521 SULFAMETHOXAZOLE-TRIMETHOPRIM Inactive DIFLUCAN 150 MG TABS 1 pill every other day x 2 doses DIFLUCAN 150 MG TABS 314718 FLUCONAZOLE Inactive BACTRIM DS 800-160 MG TABS 1 pill by mouth twice daily BACTRIM DS 800-160 MG TABS 19820521 SULFAMETHOXAZOLE-TRIMETHOPRIM Inactive KEFLEX 500 MG CAP 1 po TID x 10 days KEFLEX 500 MG CAP 094055 CEPHALEXIN Inactive Advance Directives Directive Description Start [...] % 11.6-14.8 platelet count 394 10^3/MM^3 10*3/mm3 541-857 3538/01/11 hemoglobin, blood 14.0 g/dL 12.0-16.0 mean corpuscular hemoglobin concentration, RBC 33.6 G/DL % 31.8- 35.4 red blood cell distribution width 14.4 % 11.6-14.8 platelet count 390 10^3/MM^3 10*3/mm3 021-412 4345/01/11 hematocrit, blood 41.8 % 36.0-46.0 mean corpuscular volume, RBC 94 fL 80-97 mean corpuscular hemoglobin, RBC 31.5 pg 27.0-31.2 leukocyte count, blood 13.8 10^3/MM^3 10*3/mm3 4.6-10.2 erythrocyte (RBC) count 4.46 10^6/MM^3 10*6/mm3 4.04-5.48 Lab Report: CBC W/DIFF - Hematology leukocyte [...] Panel - Chemistry sodium, serum 139 mmol/L 142-000 4883/12/03 carbon dioxide, venous blood 28.5 mmol/L 21.0-32.0 [...] 5.5 % 4.3-6.0 cholesterol, serum 159 mg/dL 271-322 8114/12/03 triglyceride, serum, fasting 118 mg/dL 30-200 HDL cholesterol, serum 45 mg/dL 32-96 LDL cholesterol, serum 90 mg/dL 0-130 Lab Report: CBC W/DIFF, Comp. Metabolic Panel, HGBA1C, Lipid Panel - Hematology erythrocyte (RBC) count 4.38 10^6/MM^3 10*6/mm3 4.04-5.48 hemoglobin, blood 13.8 g/dL 12.0-16.0 hematocrit, blood 40.8 % 36.0-46.0 mean corpuscular volume, RBC 93 fL 80-97 mean corpuscular hemoglobin, RBC 31.6 pg 27.0-31.2 mean corpuscular hemoglobin concentration, RBC 34.0 G/DL % 31.8- 35.4 red blood cell distribution width 12.8 % 11.6-14.8 platelet count 362 10^3/MM^3 10*3/mm3 917-018 3167/12/03 leukocyte count, blood 12.5 10^3/MM^3 10*3/mm3 4.6-10.2 lymphocytes as percent of blood leukocytes 26.7 % 20.5-51.1 monocytes as percent of blood leukocytes 8.0 % 1.7-9.3 neutrophils as percent of blood leukocytes 62.7 % 42.2-75.2 Lab Report: Comp. Metabolic Panel - Chemistry sodium, serum 139 mmol/L 119-193 9353/01/11 creatinine, serum 1.00 mg/dL 0.55-1.30 alanine aminotransferase (SGPT), serum 48 U/L - aspartate aminotransferase (SGOT), serum 17 U/L 15-37 calcium, serum 9.1 mg/dL 8.5-10.1 bilirubin, serum, total 0.40 mg/dL 0.00-1.00 potassium, serum 4.2 mmol/L 3.5-5.2 chloride, serum 103 mmol/L 98-107 creatinine, serum 0.90 mg/dL 0.55-1.30 alanine aminotransferase (SGPT), serum 38 U/L aspartate aminotransferase (SGOT), serum 19 U/L 15-37 calcium, serum 8.6 mg/dL 8.5-10.1 bilirubin, serum, total 0.30 mg/dL 0.00-1.00 blood glucose 115 mg/dL 65-110 urea nitrogen, blood 20 mg/dL 7-18 sodium, serum 139 mmol/L 776-768 1719/12/22 carbon dioxide, venous blood 26.8 mmol/L 21.0-32.0 carbon dioxide, venous blood 26.6 mmol/L 21.0-32.0 potassium, serum 4.1 mmol/L 3.5-5.2 chloride, serum 100 mmol/L 98-107 blood glucose 86 mg/dL 65-110 urea nitrogen, blood 16 mg/dL 7-18 sodium, serum 140 mmol/L 065-109 4442/08/08 carbon dioxide, venous blood 33.7 mmol/L 21.0-32.0 potassium, serum 5.0 mmol/L 3.5-5.2 chloride, serum 103 mmol/L 98-107 blood glucose 80 mg/dL 65-110 urea nitrogen, blood 13 mg/dL 7-18 creatinine, serum 0.88 mg/dL 0.55-1.30 alanine aminotransferase (SGPT), serum 54 U/L -78 aspartate aminotransferase (SGOT), serum 29 U/L 15-37 calcium, serum 9.7 mg/dL 8.5-10.1 bilirubin, serum, total 0.30 mg/dL 0.00-1.00 sodium, serum 142 mmol/L 121-306 6320/06/08 carbon dioxide, venous blood 27.6 mmol/L 21.0-32.0 [...] Rate - Chemistry sodium, serum 139 mmol/L 180-494 4763/12/11 carbon dioxide, venous blood 25.4 mmol/L 21.0-32.0 potassium, serum 3.9 mmol/L 3.5-5.2 creatinine, serum 0.96 mg/dL 0.55-1.30 alanine aminotransferase (SGPT), serum 34 U/L 12-78 aspartate aminotransferase (SGOT), serum 12 U/L 15-37 calcium, serum 8.6 mg/dL 8.5-10.1 bilirubin, serum, total 0.20 mg/dL 0.00-1.00 chloride, serum 105 mmol/L 98-107 blood glucose [...] 1.02 ng/dL 0.76-1.46 TSH 2.35 m[iU]/mL 0.36-3.74 thyroxine, serum, free 0.98 ng/dL 0.76-1.46 TSH 1.48 m[iU]/mL 0.36-3.74 Lab Report: UADIP W/MICRO, AUTO [...] Negative Negative nitrite, urine, semiquantitative Negative Negative Office Visit: Consult for Painful Lipoma - Chemistry cholesterol, target level 200 mg/dL triglyceride, target level 200 mg/dL HDL cholesterol, serum, target level 35 mg/dL LDL target level 100 mg/dL Encounters Code Encounter Date Provider Facility CPT-85066 Level 3 Est. Patient 14:27:52 CDT Neeraj Collins MD [facility] CPT-64381 Level 3 Est. Patient 08:56:03 CDT Luigi Martínez [facility] CPT-37245 Level 4 Est. Patient 12:11:48 CDT Fabiola Johnson [facility] CPT-77057 Level 3 New Patient 16:53:37 CDT Albert Caldera MD [facility] CPT-66066 Level 3 Est. Patient 11:25:49 CDT Renzo Thornton DO [facility] CPT-17447 Level 3 Est. Patient 15:22:01 CDT Ahmet Carbajal MD [facility] CPT-45400 Level 4 Est. Patient 09:00:51 TWITCHELL OPERATOR Vishal Hui MD [facility] CPT-33313 Level 3 Est. Patient 11:37:33 TWITCHELL OPERATOR Vishal Hui MD [facility] CPT-85577 Level 3 Est. Patient 08:41:09 TWITCHELL OPERATOR Vishal Hui MD [facility] CPT-45728 Level 4 Est. Patient 10:19:35 TWITCHELL OPERATOR Vishal Hui MD [facility] CPT-20357 Level 3 Est. Patient 13:35:45 CDT Vishal Hui MD [facility] CPT-55359 Level 4 Est. Patient 10:08:37 CDT Vishal Hui MD [facility] CPT-56669 Level 3 Est. Patient 11:22:10 CDT Vishal Hui MD [facility] CPT-34623 Level 3 Est. Patient 11:03:32 CDT Sahara Rodriguez MD [facility] CPT-39961 Level 3 Est. Patient 09:41:35 CDT Vishal Hui MD [facility] CPT-47890 Level 3 Est. Patient 12:00:41 CDT Neeraj Collins MD [facility] CPT-00411 Level 3 Est. Patient 09:16:24 CDT Vishal Hui MD [facility] CPT-80457 Level 4 Est. Patient 13:59:09 CDT Neeraj Collins MD [facility] CPT-65650 Level 3 Est. Patient 15:19:43 CDT Renzo Thornton DO [facility] CPT-67529 Level 3 Est. Patient 18:10:26 CDT Sahara Rodriguez MD [facility]-64021 Level 3 Est. Patient 14:49:50 CDT Vishal Hui MD [facility] CPT-79806 Level 4 Est. Patient 18:41:46 CDT Neeraj Collins MD [facility] CPT-81292 Level 4 Est. Patient 09:18:38 TWITCHELL OPERATOR Vishal Hui MD [facility] CPT-45347 Level 3 Est. Patient 14:43:55 TWITCHELL OPERATOR Vishal Hui MD [facility] CPT-81385 Level 3 Est. Patient 15:26:33 TWITCHELL OPERATOR Sahara Rodriguez MD [facility] CPT-33777 Level 3 Est. Patient 10:32:14 TWITCHELL OPERATOR Vishal Hui MD [facility] CPT-14177 Level 3 Est. Patient 15:12:52 TWITCHELL OPERATOR Vishal Hui MD [facility] CPT-76042 Level 4 Est. Patient 09:19:27 CDT Vishal Hui MD [facility] CPT-36538 Level 3 Est. Patient 15:53:00 CDT Renzo Thornton [facility] CPT-43583 Level 3 Est. Patient 15:50:30 CDT Renzo Thornton [facility] CPT-07083 Level 3 Est. Patient 16:55:24 CDT Vishal Hui MD [facility] Procedures Code Procedure Name Date Entry Date Standard Description CPT-53120 Wet Mount - LAB USE ONLY 17:44:58 CDT CPT-73383 UA w micro - LAB USE ONLY 17:44:58 CDT CPT-85444 CMP - LAB USE ONLY 17:44:58 CDT CPT-53156 Venipuncture Draw Fee 17:44:58 CDT CPT-63545 Cervical Min 4V - XRAY USE ONLY 09:01:40 CDT CPT-29652 Chest 2V Frontal and Lat - XRAY USE ONLY 11:06:31 CDT CPT-27116 EKG Trac and Interp - XRAY USE ONLY 11:31:43 CDT 08/26 CPT-J3420 Vitamin B12 1000mcg (Cyanocobalamin) 08:10:26 TWITCHELL OPERATOR 04/12 CPT-13762 Abx/Therapy Injection 08:10:26 TWITCHELL OPERATOR CPT-G0438 Initial Annual Wellness Exam 19:01:01 TWITCHELL OPERATOR CPT-J3420 Vitamin B12 1000mcg (Cyanocobalamin) 16:57:46 CDT 08/14 CPT-57520 Recombivax HB Injection Suspension 5 MCG/0.5ML 08:37:50 TWITCHELL OPERATOR CPT-78834 Immunization Single Admin 08:37:50 TWITCHELL OPERATOR CPT-J3420 Vitamin B12 1000mcg (Cyanocobalamin) 08:32:16 TWITCHELL OPERATOR 03/11 CPT-84358 Abx/Therapy Injection 08:32:16 TWITCHELL OPERATOR CPT-91903 Chest 2V Frontal and Lat 11:46:38 TWITCHELL OPERATOR CPT-27498 Venipuncture Draw Fee 09:12:45 TWITCHELL OPERATOR CPT-J3420 Vitamin B12 1000mcg (Cyanocobalamin) 08:50:15 TWITCHELL OPERATOR 02/08 CPT-38616 Abx/Therapy Injection 08:50:15 TWITCHELL OPERATOR CPT-Cryo Cryotherapy 10:19:35 TWITCHELL OPERATOR CPT-000 Give Appropriate Flu Vaccine 09:22:16 CDT CPT-J3420 Vitamin B12 1000mcg (Cyanocobalamin) 19:08:57 CDT 01/11 CPT-87576 Abx/Therapy Injection 19:08:57 CDT CPT-J3420 Vitamin B12 1000mcg (Cyanocobalamin) 08:19:08 CDT 12/11 CPT-93350 Abx/Therapy Injection 08:19:08 CDT CPT-J3420 Vitamin B12 1000mcg (Cyanocobalamin) 14:48:00 CDT 11/09 CPT-69682 Abx/Therapy Injection 14:47:59 CDT CPT-J3420 Vitamin B12 1000mcg (Cyanocobalamin) 08:34:04 CDT 10/09 CPT-28483 Abx/Therapy Injection 08:34:04 CDT CPT-J3420 Vitamin B12 1000mcg (Cyanocobalamin) 09:18:52 CDT 09/11 CPT-95741 Abx/Therapy Injection 09:18:52 CDT CPT-J3420 Vitamin B12 1000mcg (Cyanocobalamin) 08:35:44 CDT 09/04 CPT-87873 Abx/Therapy Injection 08:35:44 CDT CPT-17045 Immunization Single Admin 11:07:16 CDT CPT-50653 Hepatitis B adult IM 11:07:16 CDT CPT-J3420 Vitamin B12 1000mcg (Cyanocobalamin) 11:00:49 CDT 08/28 CPT-J1040 Depo Medrol 80 mg (Methyl Prednisolone Acetate) 11:00: 49 CDT CPT-78870 Abx/Therapy Injection 11:00:49 CDT CPT-J1040 Depo Medrol 80 mg (Methyl Prednisolone Acetate) 09:16: 23 CDT CPT-J3420 Vitamin B12 1000mcg (Cyanocobalamin) 08:27:05 CDT 08/20 CPT-91433 Abx/Therapy Injection 08:27:05 CDT CPT-71127 Recombivax HB Injection Suspension 5 MCG/0.5ML 10:00:41 CDT CPT-04119 Administration single or combination vaccine inc oral 10 :00:41 CDT CPT-70464 Sono transvag pelvis non OB uterus ovaries cervix 16:36: 57 CDT CPT-39627 LS spine comp w obliq 09:50:55 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 OPERATOR CPT-08523 Abd compl w upright 09:50:55 TWITCHELL OPERATOR CPT-J1100 Decadron 4mg (Dexamethasone) 15:51:24 TWITCHELL OPERATOR CPT-J1030 Depo Medrol 40 mg (Methyl Prednisolone Acetate) 15:51: 24 TWITCHELL OPERATOR CPT-05235 Abx/Therapy Injection 15:51:24 TWITCHELL OPERATOR CPT-J1100 Decadron 4mg (Dexamethasone) 15:26:33 TWITCHELL OPERATOR CPT-J1030 Depo Medrol 40 mg (Methyl Prednisolone Acetate) 15:26: 33 TWITCHELL OPERATOR CPT-28737 Sono retroperitoneal complete kidneys and bladder 17:15: 30 CDT CPT-33731 Abd compl w upright 16:09:25 CDT CPT-J1100 Decadron 8mg (Dexamethasone) 17:07:57 CDT CPT-82237 Abx/Therapy Injection 17:07:57 CDT CPT-J1100 Decadron 8mg (Dexamethasone) 16:55:24 CDT CPT-93349 Chest 2V Frontal and Lat 16:32:44 CDT
--- OUTSIDE RECORDS SUMMARY | 2016-11-04 18:37 | XMS REPORT | Clinical Summary ---
Author Author Admin, E Organization [email or web address] ([employer]) Address Unknown Phone Unavailable Allergies, Adverse Reactions, [...] 1/2 tab daily for 4 days PREDNISONE [id number] Active Vishal Hui MD Active IMITREX 50 MG ORAL TABS 1/2 tab every 6 hours prn SUMATRIPTAN SUCCINATE 35846882998 Active Tataina Mauricio NORIEGA Active AMBIEN 5 MG ORAL TABS 1 tab at bedtime ZOLPIDEM TARTRATE 41744845625 Active Pacollina Mauricio WALTERSN Active PROZAC 20 MG ORAL CAPS 1 tab daily FLUOXETINE HCL 25491691020 Active Jillina Johnl GUM ROLLING MACHINE TENDER Active ABILIFY 15 MG ORAL TABS 1 tab daily ARIPIPRAZOLE 10743419161 Active Jillina Johnl GUM ROLLING MACHINE TENDER Active MINIPRESS 2 MG CAPS 4 cap po at night PRAZOSIN HCL 58014016634 Active Jillina Frazell GUM ROLLING MACHINE TENDER Active TOPAMAX 50 MG ORAL TABS 1 tab twice daily TOPIRAMATE 26612940557 Active Pacollina Mauricio WALTERSN Active SAPHRIS 5 MG SUBL 1 po bid ASENAPINE MALEATE 12551836575 No Longer Active Pacollina Mauricio NORIEGA Active LATUDA 80 MG TABS Take one by mouth daily LURASIDONE HCL 48299120141 No Longer Active Pacollina Mauricio WALTERSN Active AMLODIPINE BESYLATE 5 MG TABS 1 tablet by mouth daily AMLODIPINE BESYLATE 74789610829 No Longer Active Tataina Mauricio NORIEGA Active AMITRIPTYLINE HCL 100 MG TAB one at hs AMITRIPTYLINE HCL 60191192822 No Longer Active Vishal Hui MD Active TRAZODONE HCL 100 MG TAB take 1 at bedtime TRAZODONE HCL 90681651693 No Longer Active Vishal Hui MD Active VYVANSE 40 MG CAPS 1 daily, LISDEXAMFETAMINE DIMESYLATE 99148295363 No Longer Active Vishal Hui MD Active IBUPROFEN 600 MG TAB 1 po TID PRN IBUPROFEN 77479852502 No Longer Active Vishal Hui MD Active MIRALAX PACK 1 po qd PRN Constipation POLYETHYLENE GLYCOL 3350 97052285782 Active Vishal Hui MD Active PROZAC 20 MG CAP Take one by mouth daily FLUOXETINE HCL 88296999986 No Longer Active Vishal Hui MD Active ZOFRAN 4 MG TABS 1 po q6hr PRN Nausea ONDANSETRON HCL Active Vishal Hui MD Active BACTRIM DS 800-160 MG TABS 1 pill by mouth twice daily SULFAMETHOXAZOLE-TRIMETHOPRIM 83614066185 No Longer Active Sahara Rodriguez MD PhD Active DIFLUCAN 150 MG TAB 1 tablet by mouth daily FLUCONAZOLE 45836070989 No Longer Active Vishal Hui MD Active TIZANIDINE HCL 4 MG TABS 1 po q6hr PRN Muscle Spasm/Back Pain TIZANIDINE HCL 54419405853 Active Luigi Martínez APRN Active CLINDAMYCIN HCL 150 MG CAPS 1 four times a day CLINDAMYCIN HCL 56296734557 No Longer Active Neeraj Collins MD Active KEFLEX 500 MG ORAL CAPS 1 cap QID by mouth CEPHALEXIN 20169016155 No Longer Active Neeraj Collins MD Active DIFLUCAN 150 MG TABS 1 pill every other day x 2 doses FLUCONAZOLE 79483229300 No Longer Active Sahara Rodriguez MD PhD Active MELATONIN 3 MG CAPS 2 po q hs MELATONIN 13673052752 No Longer Active Sahara Rodriguez MD PhD Active MULTIVITAMINS CAPS Take one by mouth daily MULTIPLE VITAMIN 73044331753 No Longer Active Sahara Rodriguez MD PhD Active BACTRIM DS 800-160 MG TAB 1 tab by mouth twice daily TRIMETHOPRIM-SULFAMETHOXAZOLE 08246766679 No Longer Active Sahara Rodriguez MD PhD Active [facility] PROBIOTIC ORAL CHEW 2 daily po PROBIOTIC PRODUCT 12031600057 No Longer Active Sahara Rodriguez MD PhD Active BACTRIM DS 800-160 MG TABS 1 po BID x 7 days SULFAMETHOXAZOLE-TRIMETHOPRIM 53596073387 No Longer Active Vishal Hui MD Active CHANTIX STARTING MONTH EARNEST 0.5 MG X 11 & 1 MG X 42 TABS 0.5mg daily for 3 days , then 0.5mg BID for 4 days, then 1mg BID VARENICLINE TARTRATE 57238191890 No Longer Active TAMARA Gray Active METOPROLOL TARTRATE 50 MG TAB 1 po bid METOPROLOL TARTRATE 47038859699 Active Vishal Hui MD Active VERAPAMIL HCL CR 120 MG TAB CR 1 po bid VERAPAMIL HCL 23826665210 No Longer Active Vishal Hui MD Active METOPROLOL SUCCINATE 50 MG TB24 1 tablet by mouth daily METOPROLOL SUCCINATE 78766249280 No Longer Active Vishal Hui MD Active TRAMADOL HCL 50 MG TABS 1-2 po TID PRN Pain TRAMADOL HCL 29050260898 Active Luigi Martínez GUM ROLLING MACHINE TENDER Active SAPHRIS 10 MG SUBL 1 tab po bid ASENAPINE MALEATE 35182509458 No Longer Active Vishal Hui MD Active LISINOPRIL 20 MG TABS 1 tab po qd LISINOPRIL 69680074354 No Longer Active Vishal Hui MD Active BENADRYL 25 MG CAP 2 po tid prn anxiety DIPHENHYDRAMINE HCL 84353289990 Active Vishal Hui MD Active LATUDA 20 MG TABS Take one by mouth daily LURASIDONE HCL 63490186068 No Longer Active Vishal Hui MD Active TRAZODONE HCL 50 MG TABS 1/2 tab po qd prn for anxiety TRAZODONE HCL 55507368628 No Longer Active Vishal Hui MD Active PIROXICAM 20 MG CAPS 1 cap po qd PRN Pain PIROXICAM 03811244858 Active Vishal Hui MD Active OMEPRAZOLE 20 MG TBEC 1 po q a.m. 30min prior to first food intake OMEPRAZOLE 16354377437 Active Vishal Hui MD Active RANITIDINE HCL 150 MG CAPS 1 twice a day RANITIDINE HCL 86337235221 Active Vishal Hui MD Active LINZESS 290 MCG CAPS Take one by mouth daily LINACLOTIDE 93939296344 No Longer Active Vishal Hui MD Active SAPHRIS 5 MG SUBL 1 tab po qd ASENAPINE MALEATE 97734726337 No Longer Active Vishal Hui MD Active ZALEPLON 10 MG CAPS 1 cap po every other night ZALEPLON 62384959342 No Longer Active Vishal Hui MD Active LYRICA 50 MG CAPS 1 tab po TID PREGABALIN 02817301191 No Longer Active Vishal Hui MD Active LORATADINE 10 MG TABS 1 tab po qd LORATADINE 98233448191 No Longer Active Vishal Hui MD Active VERAPAMIL HCL ER 180 MG CR-TABS 1 tab po bid VERAPAMIL HCL 07685557525 No Longer Active Vishal Hui MD Active MIRALAX POWD 1 capfull once daily POLYETHYLENE GLYCOL 3350 82558462883 No Longer Active Vishal Hui MD Active PREDNISONE 20 MG TABS 1 tab po qd PREDNISONE 61250018790 No Longer Active Renzo Thornton DO Active LEVOFLOXACIN 500 MG TABS 1 tab po qd LEVOFLOXACIN 30535597246 No Longer Active Renzo Thornton DO Active BUSPIRONE HCL 15 MG TABS 1 tab po TID BUSPIRONE HCL 53207399638 No Longer Active Renzo Thornton DO Active BENZTROPINE MESYLATE 1 MG TABS 1 tab po qd BENZTROPINE MESYLATE 22259474289 No Longer Active Renzo Thornton DO Active ATENOLOL 25 MG TABS 1 tab po qd ATENOLOL 64186791211 No Longer Active Renzo Thornton DO Active ESCITALOPRAM OXALATE 20 MG TABS 1 tab po qd ESCITALOPRAM OXALATE 38469605123 No Longer Active Renzo Thornton DO Active ADVAIR DISKUS 250-50 MCG/DOSE AEPB 1 puff BID FLUTICASONE-SALMETEROL 40041829391 No Longer Active Renzo Thornton DO Active PREDNISONE 20 MG TAB 2 tabs daily for 3 days, 1 tab daily for 3 days, 1/2 tab daily for 2 days PREDNISONE 12705750287 No Longer Active Vishal Hui MD Active CEFDINIR 300 MG CAPS by mouth twice a day CEFDINIR 64713355455 No Longer Active Vishal Hui MD Active LANSOPRAZOLE 30 MG CPDR 1 cap po qd LANSOPRAZOLE 69371946355 No Longer Active Vishal Hui MD Active BACLOFEN 20 MG TABS 1 tab po tid BACLOFEN 43802525880 No Longer Active Vishal Hui MD Active ADVAIR DISKUS 250-50 MCG/DOSE AEPB 1 puff BID ADVAIR DISKUS 250-50 MCG/DOSE AEPB FLUTICASONE-SALMETEROL Inactive ESCITALOPRAM OXALATE 20 MG TABS 1 tab po qd ESCITALOPRAM OXALATE 20 MG TABS 152157 ESCITALOPRAM OXALATE Inactive ATENOLOL 25 MG TABS 1 tab po qd ATENOLOL 25 MG TABS 540767 ATENOLOL Inactive BENZTROPINE MESYLATE 1 MG TABS 1 tab po qd BENZTROPINE MESYLATE 1 MG TABS 392139 BENZTROPINE MESYLATE Inactive BUSPIRONE HCL 15 MG TABS 1 tab po TID BUSPIRONE HCL 15 MG TABS 097656 BUSPIRONE HCL Inactive LEVOFLOXACIN 500 MG TABS 1 tab po qd LEVOFLOXACIN 500 MG TABS 036151 LEVOFLOXACIN Inactive PREDNISONE 20 MG TABS 1 tab po qd PREDNISONE 20 MG TABS 759314 PREDNISONE Inactive MIRALAX POWD 1 capfull once daily MIRALAX POWD 848893 POLYETHYLENE GLYCOL 3350 Inactive VERAPAMIL HCL ER 180 MG CR-TABS 1 tab po bid VERAPAMIL HCL ER 180 MG CR-TABS VERAPAMIL HCL Inactive LORATADINE 10 MG TABS 1 tab po qd LORATADINE 10 MG TABS 734927 LORATADINE Inactive LYRICA 50 MG CAPS 1 tab po TID LYRICA 50 MG CAPS PREGABALIN Inactive ZALEPLON 10 MG CAPS 1 cap po every other night ZALEPLON 10 MG CAPS 239975 ZALEPLON Inactive SAPHRIS 5 MG SUBL 1 tab po qd SAPHRIS 5 MG SUBL ASENAPINE MALEATE Inactive TRAZODONE HCL 50 MG TABS 1/2 tab po qd prn for anxiety TRAZODONE HCL 50 MG TABS 987751 TRAZODONE HCL Inactive LATUDA 20 MG TABS Take one by mouth daily LATUDA 20 MG TABS LURASIDONE HCL Inactive LISINOPRIL 20 MG TABS 1 tab po qd LISINOPRIL 20 MG TABS 105602 LISINOPRIL Inactive SAPHRIS 10 MG SUBL 1 [...] twice daily BACTRIM DS 800-160 MG TAB 461654 TRIMETHOPRIM-SULFAMETHOXAZOLE Inactive MULTIVITAMINS CAPS Take one by mouth daily MULTIVITAMINS CAPS MULTIPLE VITAMIN Inactive MELATONIN 3 MG CAPS 2 po q hs MELATONIN 3 MG CAPS 212618 MELATONIN Inactive KEFLEX 500 MG ORAL CAPS 1 cap QID by mouth KEFLEX 500 MG ORAL CAPS 770156 CEPHALEXIN Inactive CLINDAMYCIN HCL 150 MG CAPS 1 four times a day CLINDAMYCIN HCL 150 MG CAPS 908876 CLINDAMYCIN HCL Inactive DIFLUCAN 150 MG TAB 1 tablet by mouth daily DIFLUCAN 150 MG TAB 926704 FLUCONAZOLE Inactive PROZAC 20 MG CAP Take one by mouth daily PROZAC 20 MG CAP 188045 FLUOXETINE HCL Inactive IBUPROFEN 600 MG TAB 1 po TID PRN IBUPROFEN 600 MG TAB 395530 IBUPROFEN Inactive VYVANSE 40 MG CAPS 1 daily, VYVANSE 40 MG CAPS LISDEXAMFETAMINE DIMESYLATE Inactive TRAZODONE HCL 100 MG TAB take 1 at bedtime TRAZODONE HCL 100 MG TAB 773654 TRAZODONE HCL Inactive AMITRIPTYLINE HCL 100 MG TAB one at hs AMITRIPTYLINE HCL 100 MG TAB 739356 AMITRIPTYLINE HCL Inactive AMLODIPINE BESYLATE 5 MG TABS 1 tablet by mouth daily AMLODIPINE BESYLATE 5 MG TABS 971913 AMLODIPINE BESYLATE Inactive LATUDA 80 MG TABS Take one by mouth daily LATUDA 80 MG TABS LURASIDONE HCL Inactive SAPHRIS 5 MG SUBL 1 po bid SAPHRIS 5 MG SUBL ASENAPINE MALEATE Inactive CEFDINIR 300 MG CAPS by mouth twice a day CEFDINIR 300 MG CAPS 404550 CEFDINIR Inactive PREDNISONE 20 MG TAB 2 tabs daily for 3 days, 1 tab daily for 3 days, 1/2 tab daily for 2 days PREDNISONE 20 MG TAB 894901 PREDNISONE Inactive BACTRIM DS 800-160 MG TABS 1 po BID x 7 days BACTRIM DS 800-160 MG TABS 19820521 SULFAMETHOXAZOLE-TRIMETHOPRIM Inactive DIFLUCAN 150 MG TABS 1 pill every other day x 2 doses DIFLUCAN 150 MG TABS 598610 FLUCONAZOLE Inactive BACTRIM DS 800-160 MG TABS [...] Panel - Chemistry sodium, serum 139 mmol/L 001-641 0739/12/03 carbon dioxide, venous blood 28.5 mmol/L 21.0-32.0 [...] 5.5 % 4.3-6.0 cholesterol, serum 159 mg/dL 977-808 5221/12/03 triglyceride, serum, fasting 118 mg/dL 30-200 HDL [...] ... - Chemistry sodium, serum 140 mmol/L 102-269 8466/05/28 potassium, serum 4.2 mmol/L 3.5-5.2 chloride, serum [...] Panel - Chemistry sodium, serum 141 mmol/L 804-931 6571 potassium, serum 4.3 mmol/L 3.5-5.2 chloride, serum 106 mmol/L 98-107 carbon dioxide, venous blood 25.7 mmol/L 21.0-32.0 blood glucose 119 mg/dL 65-110 urea nitrogen, blood 22 mg/dL 7-18 creatinine, serum 0.90 mg/dL 0.60-1.30 alanine aminotransferase (SGPT), serum 28 U/L 12-78 aspartate aminotransferase (SGOT), serum 13 U/L 15-37 calcium, serum 8.5 mg/dL 8.5-10.1 bilirubin, serum, total 0.20 mg/dL 0.00-1.00 sodium, serum 139 mmol/L 735-596 4087/12/22 carbon dioxide, venous blood 26.8 mmol/L 21.0-32.0 [...] Rate - Chemistry sodium, serum 139 mmol/L 721-003 5477/12/11 carbon dioxide, venous blood 25.4 mmol/L 21.0-32.0 [...] 5.5 5.0-8.5 Lab Report: UADIP W/MICRO, AUTO, [facility] - Chemistry protein, total urine random Negative mg/dL Negative RBC, urine, dipstick Negative Negative human chorionic gonadotropin, urine, qualitative (urine test) Negative Negative Lab Report: UADIP W/MICRO, AUTO, [facility] - Urinalysis urobilinogen, urine, semiquantitative (dipstick) 0.2 Normal leukocyte esterase, urine, by dipstick Negative Negative nitrite, urine, semiquantitative Negative Negative glucose, urine, semiquantitative Negative Negative ketones, urine, by test strip Negative Negative bilirubin, urine Negative Negative urine color Yellow Colorless;Lightyellow;Straw;Yellow appearance, urine Clear Clear specific gravity, urine 1.025 1.000-1.030 pH, urine, semiquantitative 7.0 5.0-8.5 Lab Report: Varicella-Zoater Inga IgG,IgM/72612, HEP Be Antibody/556, RUB ... - Serology rubella antibody, serum, IgG 2.88 Encounters Code Encounter Date Provider Facility CPT-26985 Level 4 Est. Patient 09:00:51 NEWS LIBRARIAN Vishal Hui MD [facility] CPT-48009 Level 3 Est. Patient 11:37:33 NEWS LIBRARIAN Vishal Hui MD [facility] CPT-39835 Level 3 Est. Patient 08:41:09 NEWS LIBRARIAN Vishal Hui MD [facility] CPT-54205 Level 4 Est. Patient 10:19:35 NEWS LIBRARIAN Vishal Hui MD [facility] CPT-33900 Level 3 Est. Patient 13:35:45 CDT Vishal Hui MD [facility] CPT-82205 Level 4 Est. Patient 10:08:37 CDT Vishal Hui MD [facility] CPT-90929 Level 3 Est. Patient 11:22:10 CDT Vishal Hui MD [facility] CPT-12706 Level 3 Est. Patient 11:03:32 CDT Sahara Rodriguez MD [facility] CPT-19408 Level 3 Est. Patient 09:41:35 CDT Vishal Hui MD [facility] CPT-12464 Level 3 Est. Patient 12:00:41 CDT Neeraj Collins MD [facility] CPT-07238 Level 3 Est. Patient 09:16:24 CDT Vishal Hui MD [facility] CPT-00001 Level 4 Est. Patient 13:59:09 CDT Neeraj Collins MD [facility] CPT-99240 Level 3 Est. Patient 15:19:43 CDT Renzo Thornton DO [facility] CPT-09511 Level 3 Est. Patient 18:10:26 CDT Sahara Rodriguez MD [facility] CPT-78523 Level 3 Est. Patient 14:49:50 CDT Vishal Hui MD [facility] CPT-81413 Level 4 Est. Patient 18:41:46 CDT Neeraj Collins MD [facility] CPT-79017 Level 4 Est. Patient 09:18:38 NEWS LIBRARIAN Vishal Hui MD [facility] CPT-86762 Level 3 Est. Patient 14:43:55 NEWS LIBRARIAN Vishal Hui MD [facility] CPT-37451 Level 3 Est. Patient 15:26:33 NEWS LIBRARIAN Sahara Rodriguez MD PhD [facility] CPT-06886 Level 3 Est. Patient 10:32:14 NEWS LIBRARIAN Vishal Hui MD [facility] CPT-96863 Level 3 Est. Patient 15:12:52 NEWS LIBRARIAN Vishal Hui MD [facility] CPT-29268 Level 4 Est. Patient 09:19:27 CDT Vishal Hui MD [facility] CPT-36752 Level 3 Est. Patient 15:53:00 CDT Renzo Thornton [facility] CPT-69440 Level 3 Est. Patient 15:50:30 CDT Renzo Thornton [facility] CPT-31080 Level 3 Est. Patient 16:55:24 CDT Vishal Hui MD [facility] Procedures Code Procedure Name Date Entry Date Standard Description CPT-J3420 Vitamin B12 1000mcg (Cyanocobalamin) 16:57:46 CDT 08/14 CPT-75411 Recombivax HB Injection Suspension 5 MCG/0.5ML 08:37:50 NEWS LIBRARIAN CPT-91207 Immunization Single Admin 08:37:50 NEWS LIBRARIAN CPT-J3420 Vitamin B12 1000mcg (Cyanocobalamin) 08:32:16 NEWS LIBRARIAN 03/11 CPT-12895 Abx/Therapy Injection 08:32:16 NEWS LIBRARIAN CPT-54122 Chest 2V Frontal and Lat 11:46:38 NEWS LIBRARIAN CPT-45337 Venipuncture Draw Fee 09:12:45 NEWS LIBRARIAN CPT-J3420 Vitamin B12 1000mcg (Cyanocobalamin) 08:50:15 NEWS LIBRARIAN 02/08 CPT-71985 Abx/Therapy Injection 08:50:15 NEWS LIBRARIAN CPT-Cryo Cryotherapy 10:19:35 NEWS LIBRARIAN CPT-000 Give Appropriate Flu Vaccine 09:22:16 CDT CPT-J3420 Vitamin B12 1000mcg (Cyanocobalamin) 19:08:57 CDT 01/11 CPT-94632 Abx/Therapy Injection 19:08:57 CDT CPT-J3420 Vitamin B12 1000mcg (Cyanocobalamin) 08:19:08 CDT 12/11 CPT-25001 Abx/Therapy Injection 08:19:08 CDT CPT-J3420 Vitamin B12 1000mcg (Cyanocobalamin) 14:48:00 CDT 11/09 CPT-32027 Abx/Therapy Injection 14:47:59 CDT CPT-J3420 Vitamin B12 1000mcg (Cyanocobalamin) 08:34:04 CDT 10/09 CPT-16249 Abx/Therapy Injection 08:34:04 CDT CPT-J3420 Vitamin B12 1000mcg (Cyanocobalamin) 09:18:52 CDT 09/11 CPT-62669 Abx/Therapy Injection 09:18:52 CDT CPT-J3420 Vitamin B12 1000mcg (Cyanocobalamin) 08:35:44 CDT 09/04 CPT-60535 Abx/Therapy Injection 08:35:44 CDT CPT-90342 Immunization Single Admin 11:07:16 CDT CPT-76653 Hepatitis B adult IM 11:07:16 CDT CPT-J3420 Vitamin B12 1000mcg (Cyanocobalamin) 11:00:49 CDT 08/28 CPT-J1040 Depo Medrol 80 mg (Methyl Prednisolone Acetate) 11:00: 49 CDT CPT-03813 Abx/Therapy Injection 11:00:49 CDT CPT-J1040 Depo Medrol 80 mg (Methyl Prednisolone Acetate) 09:16: 23 CDT CPT-J3420 Vitamin B12 1000mcg (Cyanocobalamin) 08:27:05 CDT 08/20 CPT-39010 Abx/Therapy Injection 08:27:05 CDT CPT-38667 Recombivax HB Injection Suspension 5 MCG/0.5ML 10:00:41 CDT CPT-22110 Administration single or combination vaccine inc oral 10 :00:41 CDT CPT-86874 Sono transvag pelvis non OB uterus ovaries cervix 16:36: 57 CDT CPT-99403 LS spine comp w obliq 09:50:55 NEWS LIBRARIAN CPT-21632 Abd compl w upright 09:50:55 NEWS LIBRARIAN CPT-J1100 Decadron 4mg (Dexamethasone) 15:51:24 NEWS LIBRARIAN CPT-J1030 Depo Medrol 40 mg (Methyl Prednisolone Acetate) 15:51: 24 NEWS LIBRARIAN CPT-85944 Abx/Therapy Injection 15:51:24 NEWS LIBRARIAN CPT-J1100 Decadron 4mg (Dexamethasone) 15:26:33 NEWS LIBRARIAN CPT-J1030 Depo Medrol 40 mg (Methyl Prednisolone Acetate) 15:26: 33 NEWS LIBRARIAN CPT-62373 Sono retroperitoneal complete kidneys and bladder 17:15: 30 CDT CPT-76727 Abd compl w upright 16:09:25 CDT CPT-J1100 Decadron 8mg (Dexamethasone) 17:07:57 CDT CPT-45800 Abx/Therapy Injection 17:07:57 CDT CPT-J1100 Decadron 8mg (Dexamethasone) 16:55:24 CDT CPT-00902 Chest 2V Frontal and Lat 16:32:44 CDT
--- OUTSIDE RECORDS SUMMARY | 2016-11-04 18:39 | XMS REPORT ---
Author Author [facility] Medical Staff Organization [facility] Address [address] [place], [place] [id number] Phone [phone] Care Team Providers Care Finish Molder Name Role Phone TINO ABRAMS MD PP [phone] Summary purpose TRANSITION OF CARE AUTO GENERATION [...] Code Type Description Date Performed Performing Physician [id number] CPT-4 EMERGENCY DEPT VISIT 12-27-2014 MINO CHEW 32952 CPT-4 EMERGENCY DEPT VISIT 12-27-2014 MINO CHEW Functional status Functional Status Finding Observation Time Abdomen Appearance round :00 Abdomen non-tender :00 Vick no :00 Urination normal :00 Quality sym/unlabored :00 Cough absent :00 Secretions no :00 Airway natural :00 Chest Tube no :00 Oxygen no :30 Temp >100.4 no : Temp <96.8 no :00 Chills with rigors no : HR > 90bpm no : Respirations > 20 no : Systolic <90 no :00 headache stiff neck no : Rapid Resp no : IV Site Location no iv access : Nursing Note pt dc'd to home at this time in good condition, with all known belongings. pt exited ambulatory in care of significant other. :30 Vital signs Type Value Date Respiration Rate 18breaths per minute :30 Pulse 73beats per minute :30 Oxygen Saturation 100% :30 BP Systolic 114mmHg :30 BP Diastolic 66mmHg :30 Temperature 96.6F :30 Social history Type Value Smoking Status FORMER SMOKER Treatment Plan No treatment plan text is available for this visit. Hospital discharge instructions Dismissal Condition good Disposition on DC home DC Inst/Educ Give yes Med/Side Effects Rev yes
--- OUTSIDE RECORDS SUMMARY | 2016-11-04 18:39 | XMS REPORT | Clinical Summary ---
Author Author Admin, Dereck Organization [facility] Address Unknown Phone Unavailable Allergies, Adverse Reactions, [...] sites Morbid obesity 278.01 Active Juliet Kimbrough ANDROID FRAMEWORK DEVELOPER Morbid obesity 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 Active Juliet Kimbrough ANDROID FRAMEWORK DEVELOPER Dependence on other enabling machines and [...] breath Nocturnal hypoxia 799.02 Active Fabiola Johnson ANDROID FRAMEWORK DEVELOPER Hypoxemia Neck pain 723.1 Resolved Vishal Hui [...] day to help quit smoking VARENICLINE TARTRATE 97006706310 No Longer Active Dipika Burgos MD Active CHANTIX STARTING MONTH EARNEST 0.5 MG X 11 & 1 MG X 42 TABS take as directed 2015 VARENICLINE TARTRATE 16934924221 No Longer Active Dipika Burgos MD Active MONISTAT 7 COMBO PACK WOODROW 100 & 2 MG-% (9GM) VAG KIT 1 applicatorful per vagina q pm x 7 MICONAZOLE NITRATE 32019568682 Active Jillina Frazell ANDROID FRAMEWORK DEVELOPER Active FLAGYL 500 MG TAB 1 tablet by mouth bid METRONIDAZOLE 73118507346 Active Jillina Frazell ANDROID FRAMEWORK DEVELOPER Active TESSALON PERLES 100 MG CAP 1 to 2 tablets by mouth 3 times daily as needed for cough BENZONATATE 40878798563 No Longer Active Jillina Frazell ANDROID FRAMEWORK DEVELOPER Active ABILIFY MAINTENA 400 MG IM SUSR 400mg injection every 26 days ARIPIPRAZOLE 72370610448 Active Silvia Casey [employer] Active IMITREX 50 MG ORAL TABS 0.5 po x 1 PRN Headache. May repeat dose x 1 in 2 hours if needed SUMATRIPTAN SUCCINATE 60799325388 Active Vishal Hui MD Active OXYCODONE HCL ER 10 MG ORAL T12A 1/2 tab by mouth every 4 hours prn OXYCODONE HCL 98816805812 Active Neeraj Collins MD Active METHYLPREDNISOLONE 4 MG ORAL TABS po daily METHYLPREDNISOLONE 60712153137 Active Vishal Hui MD Active LEVOFLOXACIN 500 MG ORAL TABS po daily LEVOFLOXACIN 99013845165 Active Vishal Hui MD Active HYDROCODONE-ACETAMINOPHEN 5-325 MG TABS 1 to 2 four times a day as needed for pain use until can be seen by specialist HYDROCODONE- ACETAMINOPHEN 80566675620 No Longer Active Vishal Hui MD Active PROAIR HFA 108 (90 BASE) MCG/ACT AERS 2 puffs four times a day as needed 2015 ALBUTEROL SULFATE 94101130882 No Longer Active Vishal Hui MD Active PREDNISONE 20 MG TABS 2 daily for 5 days then 1 daily for 5 days PREDNISONE 27137996477 No Longer Active Vishal Hui MD Active ZITHROMAX Z-EARNEST 250 MG TABS 2 today and then 1 daily for 4 days AZITHROMYCIN 07341830585 No Longer Active Vishal Hui MD Active DICLOFENAC SODIUM 50 MG TBEC 1 tablet by mouth four times daily PRN Pain 2015 DICLOFENAC SODIUM 22887081673 Active Vishal Hui MD Active DICLOFENAC POTASSIUM TABS Take 1 tablet twice a day (pt. is not sure of the dose.) DICLOFENAC POTASSIUM TABS 06961147933 No Longer Active Vishal Hui MD Active VERAPAMIL HCL ER 120 MG ORAL CR-TABS Take 1 tablet by mouth twice a day. VERAPAMIL HCL 31217381314 Active Vishal Hui MD Active FLAGYL 500 MG TAB 1 tablet by mouth bid METRONIDAZOLE 47473468340 No Longer Active Vishal Hui MD Active FLUTICASONE PROPIONATE 50 MCG/ACT SUSP 2 sprays each nostril daily before bed. FLUTICASONE PROPIONATE 37678150518 Active Fabiola Johnson APRN Active ADZENYS XR-ODT 6.3 MG ORAL TBED 1 tab po daily for ADHD AMPHETAMINE 30067722508 Active Fabiola Johnson APRN Active BENADRYL 25 MG CAP 4 po at bedtime for insomnia DIPHENHYDRAMINE HCL 21799416908 Active Fabiola Johnson APRN Active KLONOPIN 1 MG ORAL TABS 1 tab po TID CLONAZEPAM 58139844465 Active Fabiola Johnson APRN Active VALIUM 5 MG TAB Take 1-2 tablets daily DIAZEPAM 14297672504 No Longer Active Fabiola Johnson APRN Active METOPROLOL TARTRATE 25 MG ORAL TABS 1/2 tablet twice daily for heart rate and blood pressure METOPROLOL TARTRATE 35637847613 No Longer Active Fabiola Johnson APRN Active MIRALAX ORAL POWD 17GMS DAILY IN WATER POLYETHYLENE GLYCOL 3350 35307975782 Active Vishal Hui MD Active VIIBRYD 10 MG ORAL TABS Take 1 tablet once a day VILAZODONE HCL 19290980115 Active Ahmet Carbajal MD Active MIRALAX PACK 1 po qd PRN Constipation POLYETHYLENE GLYCOL 3350 50687742986 No Longer Active Ahmet Carbajal MD Active MINIPRESS 2 MG CAPS 4 cap po at night PRAZOSIN HCL 05784576665 No Longer Active Ahmet Carbajal MD Active PIROXICAM 20 MG CAPS 1 cap po qd PRN Pain PIROXICAM 06057894788 No Longer Active Ahmet Carbajal MD Active TRAMADOL HCL 50 MG TABS 1-2 po TID PRN Pain TRAMADOL HCL 74138382652 No Longer Active Ahmet Carbajal MD Active METOPROLOL TARTRATE 50 MG TAB 1 po bid METOPROLOL TARTRATE 41012471891 No Longer Active Ahmet Carbajal MD Active ABILIFY 15 MG ORAL TABS 1 tab daily ARIPIPRAZOLE 35878835523 No Longer Active Ahmet Carbajal MD Active PROZAC 20 MG ORAL CAPS 1 tab daily FLUOXETINE HCL 73194693766 No Longer Active Ahmet Carbajal MD Active AMBIEN 5 MG ORAL TABS 1 tab at bedtime ZOLPIDEM TARTRATE 18743959022 No Longer Active Ahmet Carbajal MD Active PREDNISONE 20 MG TAB 2 tabs daily for 4 days, 1 tab daily for 4 days, 1/2 tab daily for 4 days PREDNISONE 74417285824 No Longer Active Ahmet Carbajal MD Active KEFLEX 500 MG CAP 1 po TID x 10 days CEPHALEXIN 79309014022 No Longer Active Vishal Hui MD Active TOPAMAX 50 MG ORAL TABS 1 tab twice daily TOPIRAMATE 80665415150 Active Vishal Hui MD Active SAPHRIS 5 MG SUBL 1 po bid ASENAPINE MALEATE 58528558246 No Longer Active Luigi Martínez APRN Active LATUDA 80 MG TABS Take one by mouth daily LURASIDONE HCL 02170106665 No Longer Active Luigi Martínez APRN Active AMLODIPINE BESYLATE 5 MG TABS 1 tablet by mouth daily AMLODIPINE BESYLATE 58247909424 No Longer Active Luigi Martínez APRN Active AMITRIPTYLINE HCL 100 MG TAB one at hs AMITRIPTYLINE HCL 07436776511 No Longer Active Vishal Hui MD Active TRAZODONE HCL 100 MG TAB take 1 at bedtime TRAZODONE HCL 91038290561 No Longer Active Vishal Hui MD Active VYVANSE 40 MG CAPS 1 daily, LISDEXAMFETAMINE DIMESYLATE 86140957702 No Longer Active Vishal Hui MD Active IBUPROFEN 600 MG TAB 1 po TID PRN IBUPROFEN 19908549140 No Longer Active Vishal Hui MD Active PROZAC 20 MG CAP Take one by mouth daily FLUOXETINE HCL 99467021270 No Longer Active Vishal Hui MD Active ZOFRAN 4 MG TABS 1 po q6hr PRN Nausea ONDANSETRON HCL Active Vishal Hui MD Active BACTRIM DS 800-160 MG TABS 1 pill by mouth twice daily SULFAMETHOXAZOLE-TRIMETHOPRIM 85450427004 No Longer Active Sahara Rodriguez MD PhD Active DIFLUCAN 150 MG TAB 1 tablet by mouth daily FLUCONAZOLE 37473382662 No Longer Active Vishal Hui MD Active TIZANIDINE HCL 4 MG TABS 1 po q6hr PRN Muscle Spasm/Back Pain TIZANIDINE HCL 78780268918 Active Vishal Hui MD Active CLINDAMYCIN HCL 150 MG CAPS 1 four times a day CLINDAMYCIN HCL 77919073802 No Longer Active Neeraj Collins MD Active KEFLEX 500 MG ORAL CAPS 1 cap QID by mouth CEPHALEXIN 10226454134 No Longer Active Neeraj Collins MD Active DIFLUCAN 150 MG TABS 1 pill every other day x 2 doses FLUCONAZOLE 74555469267 No Longer Active Sahara Rodriguez MD PhD Active MELATONIN 3 MG CAPS 2 po q hs MELATONIN 40594195602 No Longer Active Sahara Rodriguez MD PhD Active MULTIVITAMINS CAPS Take one by mouth daily MULTIPLE VITAMIN 64101112452 No Longer Active Sahara Rodriguez MD PhD Active BACTRIM DS 800-160 MG TAB 1 tab by mouth twice daily TRIMETHOPRIM-SULFAMETHOXAZOLE 43875300853 No Longer Active Sahara Rodrigeuz MD PhD Active [employer] PROBIOTIC ORAL CHEW 2 daily po PROBIOTIC PRODUCT 19382763766 No Longer Active Sahara Rodriguez MD PhD Active BACTRIM DS 800-160 MG TABS 1 po BID x 7 days SULFAMETHOXAZOLE-TRIMETHOPRIM 17766259551 No Longer Active Vishal Hui MD Active CHANTIX STARTING MONTH EARNEST 0.5 MG X 11 & 1 MG X 42 TABS 0.5mg daily for 3 days , then 0.5mg BID for 4 days, then 1mg BID VARENICLINE TARTRATE 42997919976 No Longer Active TAMARA Gray Active VERAPAMIL HCL CR 120 MG TAB CR 1 po bid VERAPAMIL HCL 91443795613 No Longer Active Vishal Hui MD Active METOPROLOL SUCCINATE 50 MG TB24 1 tablet by mouth daily METOPROLOL SUCCINATE 04278550703 No Longer Active Vishal Hui MD Active SAPHRIS 10 MG SUBL 1 tab po bid ASENAPINE MALEATE 97418159350 No Longer Active Vishal Hui MD Active LISINOPRIL 20 MG TABS 1 tab po qd LISINOPRIL 22224037059 No Longer Active Vishal Hui MD Active LATUDA 20 MG TABS Take one by mouth daily LURASIDONE HCL 30482364482 No Longer Active Vishal Hui MD Active TRAZODONE HCL 50 MG TABS 1/2 tab po qd prn for anxiety TRAZODONE HCL 48438172807 No Longer Active Vishal Hui MD Active OMEPRAZOLE 20 MG TBEC 1 po q a.m. 30min prior to first food intake OMEPRAZOLE 49558815023 Active Vishal Hui MD Active RANITIDINE HCL 150 MG CAPS 1 twice a day RANITIDINE HCL 26822194552 Active Jillina Frazell ANDROID FRAMEWORK DEVELOPER Active LINZESS 290 MCG CAPS Take one by mouth daily LINACLOTIDE 32334276385 No Longer Active Vishal Hui MD Active SAPHRIS 5 MG SUBL 1 tab po qd ASENAPINE MALEATE 89991335237 No Longer Active Vishal Hui MD Active ZALEPLON 10 MG CAPS 1 cap po every other night ZALEPLON 18991259465 No Longer Active Vishal Hui MD Active LYRICA 50 MG CAPS 1 tab po TID PREGABALIN 25798148489 No Longer Active Vishal Hui MD Active LORATADINE 10 MG TABS 1 tab po qd LORATADINE 09021657759 No Longer Active Vishal Hui MD Active VERAPAMIL HCL ER 180 MG CR-TABS 1 tab po bid VERAPAMIL HCL 11801532323 No Longer Active Vishal Hui MD Active MIRALAX POWD 1 capfull once daily POLYETHYLENE GLYCOL 3350 08401870882 No Longer Active Vishal Hui MD Active PREDNISONE 20 MG TABS 1 tab po qd PREDNISONE 69127892697 No Longer Active Renzo Thornton DO Active LEVOFLOXACIN 500 MG TABS 1 tab po qd LEVOFLOXACIN 49181062714 No Longer Active Renzo Thornton DO Active BUSPIRONE HCL 15 MG TABS 1 tab po TID BUSPIRONE HCL 95775158539 No Longer Active Renzo Thornton DO Active BENZTROPINE MESYLATE 1 MG TABS 1 tab po qd BENZTROPINE MESYLATE 86984669892 No Longer Active Renzo Thornton DO Active ATENOLOL 25 MG TABS 1 tab po qd ATENOLOL 46856340860 No Longer Active Renzo Thornton DO Active ESCITALOPRAM OXALATE 20 MG TABS 1 tab po qd ESCITALOPRAM OXALATE 13667149611 No Longer Active Renzo Thornton DO Active ADVAIR DISKUS 250-50 MCG/DOSE AEPB 1 puff BID FLUTICASONE-SALMETEROL 60767345990 No Longer Active Renzo Thornton DO Active PREDNISONE 20 MG TAB 2 tabs daily for 3 days, 1 tab daily for 3 days, 1/2 tab daily for 2 days PREDNISONE 79758607303 No Longer Active Vishal Hui MD Active CEFDINIR 300 MG CAPS by mouth twice a day CEFDINIR 87172084251 No Longer Active Vishal Hui MD Active LANSOPRAZOLE 30 MG CPDR 1 cap po qd LANSOPRAZOLE 45792018862 No Longer Active Vishal Hui MD Active BACLOFEN 20 MG TABS 1 tab po tid BACLOFEN 80147654710 No Longer Active Vishal Hui MD Active ADVAIR DISKUS 250-50 MCG/DOSE AEPB 1 puff BID ADVAIR DISKUS 250-50 MCG/DOSE AEPB FLUTICASONE-SALMETEROL Inactive ESCITALOPRAM OXALATE 20 MG TABS 1 tab po qd ESCITALOPRAM OXALATE 20 MG TABS 561544 ESCITALOPRAM OXALATE Inactive ATENOLOL 25 MG TABS 1 tab po qd ATENOLOL 25 MG TABS 711008 ATENOLOL Inactive BENZTROPINE MESYLATE 1 MG TABS 1 tab po qd BENZTROPINE MESYLATE 1 MG TABS 799379 BENZTROPINE MESYLATE Inactive BUSPIRONE HCL 15 MG TABS 1 tab po TID BUSPIRONE HCL 15 MG TABS 312739 BUSPIRONE HCL Inactive LEVOFLOXACIN 500 MG TABS 1 tab po qd LEVOFLOXACIN 500 MG TABS 977097 LEVOFLOXACIN Inactive PREDNISONE 20 MG TABS 1 tab po qd PREDNISONE 20 MG TABS 092828 PREDNISONE Inactive MIRALAX POWD 1 capfull once daily MIRALAX POWD 425459 POLYETHYLENE GLYCOL 3350 Inactive VERAPAMIL HCL ER 180 MG CR-TABS 1 tab po bid VERAPAMIL HCL ER 180 MG CR-TABS VERAPAMIL HCL Inactive LORATADINE 10 MG TABS 1 tab po qd LORATADINE 10 MG TABS 118262 LORATADINE Inactive LYRICA 50 MG CAPS 1 tab po TID LYRICA 50 MG CAPS PREGABALIN Inactive ZALEPLON 10 MG CAPS 1 cap po every other night ZALEPLON 10 MG CAPS 300169 ZALEPLON Inactive SAPHRIS 5 MG SUBL 1 tab po qd SAPHRIS 5 MG SUBL ASENAPINE MALEATE Inactive TRAZODONE HCL 50 MG TABS 1/2 tab po qd prn for anxiety TRAZODONE HCL 50 MG TABS 562595 TRAZODONE HCL Inactive LATUDA 20 MG TABS Take one by mouth daily LATUDA 20 MG TABS LURASIDONE HCL Inactive LISINOPRIL 20 MG TABS 1 tab po qd LISINOPRIL 20 MG TABS 558740 LISINOPRIL Inactive SAPHRIS 10 MG SUBL 1 [...] twice daily BACTRIM DS 800-160 MG TAB 027337 TRIMETHOPRIM-SULFAMETHOXAZOLE Inactive MULTIVITAMINS CAPS Take one by mouth daily MULTIVITAMINS CAPS MULTIPLE VITAMIN Inactive MELATONIN 3 MG CAPS 2 po q hs MELATONIN 3 MG CAPS 984909 MELATONIN Inactive KEFLEX 500 MG ORAL CAPS 1 cap QID by mouth KEFLEX 500 MG ORAL CAPS 642921 CEPHALEXIN Inactive CLINDAMYCIN HCL 150 MG CAPS 1 four times a day CLINDAMYCIN HCL 150 MG CAPS 705245 CLINDAMYCIN HCL Inactive DIFLUCAN 150 MG TAB 1 tablet by mouth daily DIFLUCAN 150 MG TAB 754136 FLUCONAZOLE Inactive PROZAC 20 MG CAP Take one by mouth daily PROZAC 20 MG CAP 870564 FLUOXETINE HCL Inactive IBUPROFEN 600 MG TAB 1 po TID PRN IBUPROFEN 600 MG TAB 619868 IBUPROFEN Inactive VYVANSE 40 MG CAPS 1 daily, VYVANSE 40 MG CAPS LISDEXAMFETAMINE DIMESYLATE Inactive TRAZODONE HCL 100 MG TAB take 1 at bedtime TRAZODONE HCL 100 MG TAB 677514 TRAZODONE HCL Inactive AMITRIPTYLINE HCL 100 MG TAB one at hs AMITRIPTYLINE HCL 100 MG TAB 542538 AMITRIPTYLINE HCL Inactive AMLODIPINE BESYLATE 5 MG TABS 1 tablet by mouth daily AMLODIPINE BESYLATE 5 MG TABS 558731 AMLODIPINE BESYLATE Inactive LATUDA 80 MG TABS Take one by mouth daily LATUDA 80 MG TABS LURASIDONE HCL Inactive SAPHRIS 5 MG SUBL 1 po bid SAPHRIS 5 MG SUBL ASENAPINE MALEATE Inactive PREDNISONE 20 MG TAB 2 tabs daily for 4 days, 1 tab daily for 4 days, 1/2 tab daily for 4 days PREDNISONE 20 MG TAB 914671 PREDNISONE Inactive AMBIEN 5 MG ORAL TABS 1 tab at bedtime AMBIEN 5 MG ORAL TABS 609476 ZOLPIDEM TARTRATE Inactive PROZAC 20 MG ORAL CAPS 1 tab daily PROZAC 20 MG ORAL CAPS 525301 FLUOXETINE HCL Inactive ABILIFY 15 MG ORAL TABS 1 tab daily ABILIFY 15 MG ORAL TABS 812107 ARIPIPRAZOLE Inactive METOPROLOL TARTRATE 50 MG TAB 1 po bid METOPROLOL TARTRATE 50 MG TAB 241157 METOPROLOL TARTRATE Inactive TRAMADOL HCL 50 MG TABS 1-2 po TID PRN Pain TRAMADOL HCL 50 MG TABS 187306 TRAMADOL HCL Inactive PIROXICAM 20 MG CAPS 1 cap po qd PRN Pain PIROXICAM 20 MG CAPS 416025 PIROXICAM Inactive MINIPRESS 2 MG CAPS 4 cap po at night MINIPRESS 2 MG CAPS 042906 PRAZOSIN HCL Inactive MIRALAX PACK 1 po qd PRN Constipation MIRALAX PACK 995071 POLYETHYLENE GLYCOL 3350 Inactive METOPROLOL TARTRATE 25 MG ORAL TABS 1/2 tablet twice daily for heart rate and blood pressure METOPROLOL TARTRATE 25 MG ORAL TABS 691672 METOPROLOL TARTRATE Inactive VALIUM 5 MG TAB Take 1-2 tablets daily VALIUM 5 MG TAB 436011 DIAZEPAM Inactive FLAGYL 500 MG TAB 1 tablet by mouth bid FLAGYL 500 MG TAB 807736 METRONIDAZOLE Inactive DICLOFENAC POTASSIUM TABS Take 1 tablet twice a day (pt. is not sure of the dose.) DICLOFENAC POTASSIUM TABS DICLOFENAC POTASSIUM TABS Inactive ZITHROMAX Z-EARNEST 250 MG TABS 2 today and then 1 daily for 4 days ZITHROMAX Z-EARNEST 250 MG TABS 7407305 AZITHROMYCIN Inactive PREDNISONE 20 MG TABS 2 daily for 5 days then 1 daily for 5 days PREDNISONE 20 MG TABS 704703 PREDNISONE Inactive PROAIR HFA 108 (90 BASE) MCG/ACT AERS 2 puffs four times a day as needed 2015 PROAIR HFA 108 (90 BASE) MCG/ACT AERS ALBUTEROL SULFATE Inactive HYDROCODONE-ACETAMINOPHEN 5-325 MG TABS 1 to 2 four times a day as needed for pain use until can be seen by specialist HYDROCODONE- ACETAMINOPHEN 5-325 MG TABS 760704 HYDROCODONE-ACETAMINOPHEN Inactive TESSALON PERLES 100 MG CAP 1 to 2 tablets by mouth 3 times daily as needed for cough TESSALON PERLES 100 MG CAP 354694 BENZONATATE Inactive CHANTIX STARTING MONTH EARNEST 0.5 [...] twice a day CEFDINIR 300 MG CAPS 008606 CEFDINIR Inactive PREDNISONE 20 MG TAB 2 tabs daily for 3 days, 1 tab daily for 3 days, 1/2 tab daily for 2 days PREDNISONE 20 MG TAB 456511 PREDNISONE Inactive BACTRIM DS 800-160 MG TABS [...] x 10 days KEFLEX 500 MG CAP 706415 CEPHALEXIN Inactive Advance Directives Directive Description Start [...] % 11.6-14.8 platelet count 394 10^3/MM^3 10*3/mm3 340-211 8426/01/11 leukocyte count, blood 13.8 10^3/MM^3 10*3/mm3 4.6-10.2 [...] Panel - Chemistry sodium, serum 139 mmol/L 952-583 4444/12/03 carbon dioxide, venous blood 28.5 mmol/L 21.0-32.0 [...] 5.5 % 4.3-6.0 cholesterol, serum 159 mg/dL 888-401 2998/12/03 triglyceride, serum, fasting 118 mg/dL 30-200 HDL [...] 362 10^3/MM^3 10*3/mm3 142-424 Lab Report: Chlamydia/GC APTIMA/[id number] - Lab chlamydia DNA probe NOT DETECTED NOT DETECTED Lab Report: Chlamydia/GC APTIMA/[id number] - Microbiology Neisseria gonorrhoeae DNA probe NOT DETECTED NOT DETECTED Lab Report: Comp. Metabolic Panel - Chemistry sodium, serum 140 mmol/L 697-388 4688/08/08 carbon dioxide, venous blood 33.7 mmol/L 21.0-32.0 potassium, serum 5.0 mmol/L 3.5-5.2 chloride, serum 103 mmol/L 98-107 blood glucose 80 mg/dL 65-110 urea nitrogen, blood 13 mg/dL 7-18 creatinine, serum 0.88 mg/dL 0.55-1.30 alanine aminotransferase (SGPT), serum 54 U/L -78 aspartate aminotransferase (SGOT), serum 29 U/L 15-37 calcium, serum 9.7 mg/dL 8.5-10.1 bilirubin, serum, total 0.30 mg/dL 0.00-1.00 sodium, serum 139 mmol/L 920-414 4604/12/22 carbon dioxide, venous blood 26.8 mmol/L 21.0-32.0 potassium, serum 4.2 mmol/L 3.5-5.2 chloride, serum 103 mmol/L 98-107 blood glucose 115 mg/dL 65-110 urea nitrogen, blood 20 mg/dL 7-18 creatinine, serum 0.90 mg/dL 0.55-1.30 alanine aminotransferase (SGPT), serum 38 U/L aspartate aminotransferase (SGOT), serum 19 U/L 15-37 calcium, serum 8.6 mg/dL 8.5-10.1 bilirubin, serum, total 0.30 mg/dL 0.00-1.00 sodium, serum 139 mmol/L 197-902 2555/01/11 carbon dioxide, venous blood 26.6 mmol/L 21.0-32.0 potassium, serum 4.1 mmol/L 3.5-5.2 chloride, serum 100 mmol/L 98-107 blood glucose 86 mg/dL 65-110 urea nitrogen, blood 16 mg/dL 7-18 creatinine, serum 1.00 mg/dL 0.55-1.30 alanine aminotransferase (SGPT), serum 48 U/L -78 aspartate aminotransferase (SGOT), serum 17 U/L 15-37 calcium, serum 9.1 mg/dL 8.5-10.1 bilirubin, serum, total 0.40 mg/dL 0.00-1.00 sodium, serum 142 mmol/L 832-687 0666/06/08 carbon dioxide, venous blood 27.6 mmol/L [...] Rate - Chemistry sodium, serum 139 mmol/L 387-187 5402/12/11 carbon dioxide, venous blood 25.4 mmol/L 21.0-32.0 [...] mg/dL Encounters Code Encounter Date Provider Facility CPT-43164 Level 3 Est. Patient 13:59:59 CDT Luigi Martínez [facility] CPT-66133 Level 3 Est. Patient 18:18:53 CDT Neeraj Clolins MD [facility] CPT-78264 Level 3 Est. Patient 15:50:44 CDT Vishal Hui MD [facility] CPT-30404 Level 3 Est. Patient 11:36:17 CDT Ahmet Carbajal MD [facility] CPT-71248 Level 3 Est. Patient 13:29:16 CDT Vishal Hui MD [facility] CPT-93779 Level 3 Est. Patient 14:27:52 CDT Neeraj Collins MD [facility] CPT-78900 Level 3 Est. Patient 08:56:03 CDT Luigi Martínez [facility] CPT-39339 Level 4 Est. Patient 12:11:48 CDT Fabiola Johnson [facility] CPT-98458 Level 3 New Patient 16:53:37 CDT Albert Caldera MD [facility] CPT-01219 Level 3 Est. Patient 11:25:49 CDT Renzo Thornton DO [facility] CPT-70789 Level 3 Est. Patient 15:22:01 CDT Ahmet Carbajal MD [facility] CPT-98675 Level 4 Est. Patient 09:00:51 CORPORATE LICENSED BROKER Vishal Hui MD [facility] CPT-77133 Level 3 Est. Patient 11:37:33 CORPORATE LICENSED BROKER Vishal Hui MD [facility] CPT-21817 Level 3 Est. Patient 08:41:09 CORPORATE LICENSED BROKER iVshal Hui MD [facility] CPT-20114 Level 4 Est. Patient 10:19:35 CORPORATE LICENSED BROKER Vishal Hui MD [facility] CPT-76790 Level 3 Est. Patient 13:35:45 CDT Vishal Hui MD [facility] CPT-23859 Level 4 Est. Patient 10:08:37 CDT Vishal Hui MD [facility]-21857 Level 3 Est. Patient 11:22:10 CDT Vishal Hui MD [facility] CPT-42603 Level 3 Est. Patient 11:03:32 CDT Sahara Rodriguez MD [facility]-10423 Level 3 Est. Patient 09:41:35 CDT Vishal Hui MD [facility]-56523 Level 3 Est. Patient 12:00:41 CDT Neeraj Collins MD [facility]-05489 Level 3 Est. Patient 09:16:24 CDT Vishal Hui MD [facility] CPT-03935 Level 4 Est. Patient 13:59:09 CDT Neeraj Collins MD [facility] CPT-37787 Level 3 Est. Patient 15:19:43 CDT Renzo Thornton DO [facility] CPT-72078 Level 3 Est. Patient 18:10:26 CDT Sahara Rodriguez MD [facility]-08340 Level 3 Est. Patient 14:49:50 CDT Vishal Hui MD [facility] CPT-31239 Level 4 Est. Patient 18:41:46 CDT Neeraj Collins MD [facility] CPT-50368 Level 4 Est. Patient 09:18:38 CORPORATE LICENSED BROKER Vishal Hui MD [facility]-55363 Level 3 Est. Patient 14:43:55 CORPORATE LICENSED BROKER Visahl Hui MD [facility] CPT-20369 Level 3 Est. Patient 15:26:33 CORPORATE LICENSED BROKER Sahara Rodriguez MD PhD [facility]-37969 Level 3 Est. Patient 10:32:14 CORPORATE LICENSED BROKER Vishal Hui MD [facility] CPT-43114 Level 3 Est. Patient 15:12:52 CORPORATE LICENSED BROKER Vishal Hui MD [facility] CPT-11802 Level 4 Est. Patient 09:19:27 CDT Vishal Hui MD [facility] CPT-18699 Level 3 Est. Patient 15:53:00 CDT Renzo Thornton [facility] CPT-51876 Level 3 Est. Patient 15:50:30 CDT Renzo Thornton [facility] CPT-88274 Level 3 Est. Patient 16:55:24 CDT Vishal Hui MD [facility] Procedures Code Procedure Name Date Entry Date Standard Description CPT-34503 Nexplanon Removal with Reinsertion 14:09:32 CDT CPT-J7307 Nexplanon (Implant) 14:09:32 CDT CPT-OV Office Visit 14:09:32 CDT CPT-60312 UA w micro - LAB USE ONLY 16:21:13 CDT CPT-43606 Wet Mount - LAB USE ONLY 16:21:13 CDT CPT-14571 First Vx - Ix admin for Medicare patients 14:37:47 CDT CPT-91104 Fluzone Preservative Free Intramuscular Suspension 14:37 :47 CDT CPT-12574 Abx/Therapy Injection 13:54:22 CDT CPT-13480 Abx/Therapy Injection 08:47:09 CDT CPT-39388 Abx/Therapy Injection 13:29:56 CDT CPT-46674 Abx/Therapy Injection 08:36:16 CDT CPT-49351 Wet Mount - LAB USE ONLY 17:44:58 CDT CPT-04122 UA w micro - LAB USE ONLY 17:44:58 CDT CPT-16872 CMP - LAB USE ONLY 17:44:58 CDT CPT-01107 Venipuncture Draw Fee 17:44:58 CDT CPT-53071 Cervical Min 4V - XRAY USE ONLY 09:01:40 CDT CPT-91528 Chest 2V Frontal and Lat - XRAY USE ONLY 11:06:31 CDT CPT-40409 EKG Trac and Interp - XRAY USE ONLY 11:31:43 CDT 08/26 CPT-J3420 Vitamin B12 1000mcg (Cyanocobalamin) 08:10:26 CORPORATE LICENSED BROKER 04/12 CPT-27512 Abx/Therapy Injection 08:10:26 CORPORATE LICENSED BROKER CPT-G0438 Initial Annual Wellness Exam 19:01:01 CORPORATE LICENSED BROKER CPT-J3420 Vitamin B12 1000mcg (Cyanocobalamin) 16:57:46 CDT 08/14 CPT-97483 Recombivax HB Injection Suspension 5 MCG/0.5ML 08:37:50 CORPORATE LICENSED BROKER CPT-09726 Immunization Single Admin 08:37:50 CORPORATE LICENSED BROKER CPT-J3420 Vitamin B12 1000mcg (Cyanocobalamin) 08:32:16 CORPORATE LICENSED BROKER 03/11 CPT-89924 Abx/Therapy Injection 08:32:16 CORPORATE LICENSED BROKER CPT-80904 Chest 2V Frontal and Lat 11:46:38 CORPORATE LICENSED BROKER CPT-49219 Venipuncture Draw Fee 09:12:45 CORPORATE LICENSED BROKER CPT-J3420 Vitamin B12 1000mcg (Cyanocobalamin) 08:50:15 CORPORATE LICENSED BROKER 02/08 CPT-36605 Abx/Therapy Injection 08:50:15 CORPORATE LICENSED BROKER CPT-Cryo Cryotherapy 10:19:35 CORPORATE LICENSED BROKER CPT-000 Give Appropriate Flu Vaccine 09:22:16 CDT CPT-J3420 Vitamin B12 1000mcg (Cyanocobalamin) 19:08:57 CDT 01/11 CPT-12066 Abx/Therapy Injection 19:08:57 CDT CPT-J3420 Vitamin B12 1000mcg (Cyanocobalamin) 08:19:08 CDT 12/11 CPT-20573 Abx/Therapy Injection 08:19:08 CDT CPT-J3420 Vitamin B12 1000mcg (Cyanocobalamin) 14:48:00 CDT 11/09 CPT-79853 Abx/Therapy Injection 14:47:59 CDT CPT-J3420 Vitamin B12 1000mcg (Cyanocobalamin) 08:34:04 CDT 10/09 CPT-89021 Abx/Therapy Injection 08:34:04 CDT CPT-J3420 Vitamin B12 1000mcg (Cyanocobalamin) 09:18:52 CDT 09/11 CPT-89959 Abx/Therapy Injection 09:18:52 CDT CPT-J3420 Vitamin B12 1000mcg (Cyanocobalamin) 08:35:44 CDT 09/04 CPT-40971 Abx/Therapy Injection 08:35:44 CDT CPT-15538 Immunization Single Admin 11:07:16 CDT CPT-85106 Hepatitis B adult IM 11:07:16 CDT CPT-J3420 Vitamin B12 1000mcg (Cyanocobalamin) 11:00:49 CDT 08/28 CPT-J1040 Depo Medrol 80 mg (Methyl Prednisolone Acetate) 11:00: 49 CDT CPT-77655 Abx/Therapy Injection 11:00:49 CDT CPT-J1040 Depo Medrol 80 mg (Methyl Prednisolone Acetate) 09:16: 23 CDT CPT-J3420 Vitamin B12 1000mcg (Cyanocobalamin) 08:27:05 CDT 08/20 CPT-02881 Abx/Therapy Injection 08:27:05 CDT CPT-44612 Recombivax HB Injection Suspension 5 MCG/0.5ML 10:00:41 CDT CPT-51736 Administration single or combination vaccine inc oral 10 :00:41 CDT CPT-38292 Sono transvag pelvis non OB uterus ovaries cervix 16:36: 57 CDT CPT-09717 LS spine comp w obliq 09:50:55 [employer] CPT-99345 Abd compl w upright 09:50:55 [employer] CPT-J1100 Decadron 4mg (Dexamethasone) 15:51:24 [employer] CPT-J1030 Depo Medrol 40 mg (Methyl Prednisolone Acetate) 15:51: 24 [employer] CPT-93372 Abx/Therapy Injection 15:51:24 [employer]PORATE [employer] CPT-J1100 Decadron 4mg (Dexamethasone) 15:26:33 [employer] CPT-J1030 Depo Medrol 40 mg (Methyl Prednisolone Acetate) 15:26: 33 [employer] CPT-85978 Sono retroperitoneal complete kidneys and bladder 17:15: 30 CDT CPT-91907 Abd compl w upright 16:09:25 CDT CPT-J1100 Decadron 8mg (Dexamethasone) 17:07:57 CDT CPT-04299 Abx/Therapy Injection 17:07:57 CDT CPT-J1100 Decadron 8mg (Dexamethasone) 16:55:24 CDT CPT-11302 Chest 2V Frontal and Lat 16:32:44 CDT
--- OUTSIDE RECORDS SUMMARY | 2016-11-04 18:42 | XMS REPORT | Clinical Summary ---
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 Juliet Kimbrough SUPPLY CHAIN SYSTEMS MANAGER Dependence on other enabling machines and [...] Active Ahmet Carbajal MD Generalized anxiety disorder Strainer Tender well woman exam V72.31 Resolved Suzan Boo [...] Inactive Vishal Hui MD Fatigue ICD-780.79 Inactive Visahl Hui MD 2014 Vaginitis, candidal ICD-112.1 Inactive [...] fracture with routine healing Inactive Suzan Boo SUPPLY CHAIN SYSTEMS MANAGER Bronchitis, acute ICD-466.0 Inactive Ahmet Carbajal MD Strainer Tender well woman exam ICD-V72.31 Inactive Suzan Boo SUPPLY CHAIN SYSTEMS MANAGER Bronchitis, acute with mild bronchospasm ICD-466.0 Inactive Suzanthuy Boo SUPPLY CHAIN SYSTEMS MANAGER Tracheitis ICD-464.10 Inactive Suzan Boo SUPPLY CHAIN SYSTEMS MANAGER Impetigo ICD-684 Inactive Suzan Boo SUPPLY CHAIN SYSTEMS MANAGER Furuncle of buttock ICD-680.5 Inactive Suzan Boo APRN Vaginal irritation ICD-623.9 Inactive Suzan Boo SUPPLY CHAIN SYSTEMS MANAGER Scalding pain on urination ICD-788.1 Inactive Suzan Boo APRN Abdominal pain, right upper quadrant ICD-789.01 Inactive Suzan Boo SUPPLY CHAIN SYSTEMS MANAGER Dark urine ICD-791.9 Inactive Suzan Boo APRN Preop exam ICD-V72.84 Inactive Suzan Boo SUPPLY CHAIN SYSTEMS MANAGER Medication List Medication Instructions Start Date Stop Date Generic Name NDC Status Provider Patient Instruction [id number] 50-325-40 MG TABS 1 to 2 four times a day as needed for headache [id number] Active Suzan Boo SUPPLY CHAIN SYSTEMS MANAGER Active METOCLOPRAMIDE HCL 10 MG TABS 1 two times as needed for nausea and headaches METOCLOPRAMIDE HCL 73083576489 Active Suzan Boo APRN Active NYSTATIN 463381 UNIT/GM CREA apply three times a day to yeast rash NYSTATIN 32269532368 Active Suzan Boo APRN Active AMITIZA 24 MCG ORAL CAPS one capsule twice daily LUBIPROSTONE 90299127015 Active Suzan Boo APRN Active MIRALAX ORAL POWD 17GMS DAILY IN WATER POLYETHYLENE GLYCOL 3350 79907151372 No Longer Active Suzan Boo APRN Active LACTULOSE 10 GM/15ML ORAL SOLN 30mL oral BID for IBS-C LACTULOSE 53210165284 No Longer Active Suzan Boo APRN Active BACTRIM DS 800-160 MG TAB Take one (1) tablet by mouth twice a day for 5 days TRIMETHOPRIM-SULFAMETHOXAZOLE 76055661339 No Longer Active Suzan Boo APRN Active MUPIROCIN 2 % OINT apply twice a day MUPIROCIN 46251557134 No Longer Active Suzan Boo APRN Active BACTRIM DS 800-160 MG TABS 1 twice a day SULFAMETHOXAZOLE-TRIMETHOPRIM 90781662581 No Longer Active Suzan Boo APRN Active DIFLUCAN 150 MG TABS 1 by mouth for yeast FLUCONAZOLE 89253151250 No Longer Active Suzan Boo APRN Active LINZESS 290 MCG ORAL CAPS 1 tab 30 min prior to first meal each day. LINACLOTIDE 40325701048 No Longer Active Sheila Calderon PEDIATRIC DENTAL ASSISTANT Active AMITIZA 8 MCG ORAL CAPS 1 tab BID LUBIPROSTONE 09870762940 No Longer Active Lynda Madl PEDIATRIC DENTAL ASSISTANT Active TESSALON PERLES 100 MG CAPS 1 three times a day as needed for cough BENZONATATE 48735887708 No Longer Active Suzan Boo APRN Active BACTRIM DS 800-160 MG TABS 1 twice a day SULFAMETHOXAZOLE-TRIMETHOPRIM 41769292326 No Longer Active Suzan Boo APRN Active DIFLUCAN 150 MG TABS 1 by mouth for yeast FLUCONAZOLE 06778636886 No Longer Active Suzan Boo APRN Active EQ NICOTINE 21 MG/24HR TRANS PT24 Apply daily to stop smoking NICOTINE 21964781411 No Longer Active Suzan Boo APRN Active PREDNISONE 10 MG TABS 2 daily for 5 days then 1 daily for 5 days PREDNISONE 55528439794 No Longer Active Suzan Boo APRN Active LEVAQUIN 500 MG TABS 1 daily for infection LEVOFLOXACIN 01988492998 No Longer Active Suzan Boo APRN Active TROPICAMIDE 0.5 % OPHTH SOLN 1 drop PRN eye spasms TROPICAMIDE 43531202316 No Longer Active Suzan Boo APRN Active PREDNISONE 20 MG TAB 1 tablet daily x 4 days PREDNISONE 65637873441 No Longer Active Suzan Boo APRN Active ACETAMINOPHEN-CODEINE 120-12 MG/5ML SOLN 5 ml by mouth every 4-6 hours if needed for cough ACETAMINOPHEN-CODEINE 75339869453 No Longer Active Suzan Boo APRN Active KEFLEX 500 MG CAP 1 po qid CEPHALEXIN 29502337060 No Longer Active Suzan Boo APRN Active FLOVENT HFA 110 MCG/ACT AERO 2 puffs inhaled b.i.d. FLUTICASONE PROPIONATE HFA 15366582450 Active Renzo Thornton DO Active RISPERDAL 4 MG ORAL TABS 1 tab at bedtime RISPERIDONE 66137797981 Active Samantha Rothman RMA Active ZOFRAN 4 MG TABS 1 po q6hr PRN Nausea ONDANSETRON HCL No Longer Active Suzan Boo APRN Active FLUTICASONE PROPIONATE 50 MCG/ACT SUSP 2 sprays each nostril daily before bed. FLUTICASONE PROPIONATE 19452482521 No Longer Active Suzan Boo APRN Active ASPIRIN 325 MG ORAL TABS 1 tab q.d ASPIRIN 51425618964 No Longer Active Suzan Boo APRN Active HALOPERIDOL 10 MG ORAL TABS 1 tab q.d HALOPERIDOL 55018654633 No Longer Active Suzan Boo APRN Active GUAIFENESIN-CODEINE 100-10 MG/5ML SYRP 5ml every 4 to 6 hours as needed for cough GUAIFENESIN-CODEINE 69566715361 No Longer Active Suzan Boo APRN Active ZITHROMAX Z-EARNEST 250 MG TABS 2 today and then 1 daily for 4 days AZITHROMYCIN 19948223368 No Longer Active Suzan Boo APRN Active CLONAZEPAM 1 MG ORAL TABS 1 twice a day and an additional 1 tablet every other day as needed for pseudoseizures or anxiety CLONAZEPAM 68879104072 Active Suzan Boo APRN Active HYDROCODONE-ACETAMINOPHEN 5-325 MG ORAL TABS 1 tab two times a day HYDROCODONE-ACETAMINOPHEN 01147004143 No Longer Active Ahmet Carbajal MD Active LAMICTAL 100 MG ORAL TABS 1 tab 2 times qd. LAMOTRIGINE 18230803572 Active Ahmet Carbajal MD Active PREDNISONE 20 MG TABS 2 daily for 5 days then 1 daily for 5 days PREDNISONE 09650048649 No Longer Active Ahmet Carbajal MD Active FLUTICASONE PROPIONATE 50 MCG/ACT SUSP 1 to 2 sprays each nostril daily for allergies FLUTICASONE PROPIONATE 53888334516 Active Tila Valenzuela Active BENADRYL 25 MG CAP 4 po at bedtime for insomnia DIPHENHYDRAMINE HCL 61249984343 No Longer Active Ahmet Carbajal MD Active ADVAIR DISKUS 250-50 MCG/DOSE INH AEPB 1 puff twice a day for asthma FLUTICASONE-SALMETEROL 45316877936 No Longer Active Ahmet Carbajal MD Active KLONOPIN 1 MG ORAL TABS 1 tab po TID CLONAZEPAM 67453891355 No Longer Active Ahmet Carbajal MD Active ABILIFY MAINTENA 400 MG IM SUSR 400mg injection every 26 days ARIPIPRAZOLE 17297187034 No Longer Active Ahmet Carbajal MD Active TRAMADOL HCL 50 MG TABS 1/2-1 tab TID PRN TRAMADOL HCL 87584819583 No Longer Active Ahmet Carbajal MD Active BACTRIM DS 800-160 MG TABS 1 twice a day SULFAMETHOXAZOLE- TRIMETHOPRIM 89118736482 No Longer Active Ahmet Carbajal MD Active PROAIR HFA 108 (90 BASE) MCG/ACT AERS 2 puffs four times a day as needed 2015 ALBUTEROL SULFATE 32694670432 Active Honey Hinton SUPPLY CHAIN SYSTEMS MANAGER Active MONISTAT 7 COMBO PACK WOODROW 100 & 2 MG-% (9GM) VAG KIT 1 applicatorful per vagina q pm x 7 MICONAZOLE NITRATE 50639079590 No Longer Active Ahmet Carbajal MD Active FLAGYL 500 MG TAB 1 tablet by mouth bid METRONIDAZOLE 99006524912 No Longer Active Ahmet Carbajal MD Active OXYCODONE HCL ER 10 MG ORAL T12A 1/2 tab by mouth every 4 hours prn OXYCODONE HCL 98340390080 No Longer Active Ahmet Carbajal MD Active METHYLPREDNISOLONE 4 MG ORAL TABS po daily METHYLPREDNISOLONE 06548982023 No Longer Active Ahmet Carbajal MD Active LEVOFLOXACIN 500 MG ORAL TABS po daily LEVOFLOXACIN 47435846364 No Longer Active Ahmet Carbajal MD Active VIIBRYD 10 MG ORAL TABS Take 1 tablet once a day VILAZODONE HCL 01987157152 No Longer Active Ahmet Carbajal MD Active TOPAMAX 50 MG ORAL TABS 1 tab twice daily TOPIRAMATE 77039906135 No Longer Active Ahmet Carbajal MD Active DICLOFENAC SODIUM 50 MG TBEC 1 tablet by mouth four times daily PRN Pain 2015 DICLOFENAC SODIUM 33201609011 No Longer Active Ahmet Carbajal MD Active ADZENYS XR-ODT 6.3 MG ORAL TBED 1 tab po daily for ADHD AMPHETAMINE 79928759862 No Longer Active Ahmet Carbajal MD Active CHANTIX 1 MG TABS 1 twice a day to help quit smoking VARENICLINE TARTRATE 53750361730 No Longer Active Dipika Burgos MD Active CHANTIX STARTING MONTH EARNEST 0.5 MG X 11 & 1 MG X 42 TABS take as directed 2015 VARENICLINE TARTRATE 71608055281 No Longer Active Dipika Burgos MD Active TESSALON PERLES 100 MG CAP 1 to 2 tablets by mouth 3 times daily as needed for cough BENZONATATE 15607492726 No Longer Active Luigi Martínez SUPPLY CHAIN SYSTEMS MANAGER Active IMITREX 50 MG ORAL TABS 0.5 po x 1 PRN Headache. May repeat dose x 1 in 2 hours if needed SUMATRIPTAN SUCCINATE 73272978312 Active TAMARA Casey Active HYDROCODONE-ACETAMINOPHEN 5-325 MG TABS 1 to 2 four times a day as needed for pain use until can be seen by specialist HYDROCODONE- ACETAMINOPHEN 50138281771 No Longer Active Vishal Hui MD Active PROAIR HFA 108 (90 BASE) MCG/ACT AERS 2 puffs four times a day as needed 2015 ALBUTEROL SULFATE 38198224637 No Longer Active Vishal Hui MD Active PREDNISONE 20 MG TABS 2 daily for 5 days then 1 daily for 5 days PREDNISONE 31346421106 No Longer Active Vishal Hui MD Active ZITHROMAX Z-EARNEST 250 MG TABS 2 today and then 1 daily for 4 days AZITHROMYCIN 78330245068 No Longer Active Vishal Hui MD Active DICLOFENAC POTASSIUM TABS Take 1 tablet twice a day (pt. is not sure of the dose.) DICLOFENAC POTASSIUM TABS 45771437974 No Longer Active Vishal Hui MD Active VERAPAMIL HCL ER 120 MG ORAL CR-TABS Take 1 tablet by mouth twice a day. VERAPAMIL HCL 37288581056 Active Vishal Hui MD Active FLAGYL 500 MG TAB 1 tablet by mouth bid METRONIDAZOLE 18644717969 No Longer Active Vishal Hui MD Active VALIUM 5 MG TAB Take 1-2 tablets daily DIAZEPAM 43449807292 No Longer Active Fabiola Johnson APRN Active METOPROLOL TARTRATE 25 MG ORAL TABS 1/2 tablet twice daily for heart rate and blood pressure METOPROLOL TARTRATE 24296782907 No Longer Active Fabiola Johnson APRN Active MIRALAX PACK 1 po qd PRN Constipation POLYETHYLENE GLYCOL 3350 28146463731 No Longer Active Ahmet Carbajal MD Active MINIPRESS 2 MG CAPS 4 cap po at night PRAZOSIN HCL 10907043535 No Longer Active Ahmet Carbajal MD Active PIROXICAM 20 MG CAPS 1 cap po qd PRN Pain PIROXICAM 20571040942 No Longer Active Ahmet Carbajal MD Active TRAMADOL HCL 50 MG TABS 1-2 po TID PRN Pain TRAMADOL HCL 60191725303 No Longer Active Ahmet Carbajal MD Active METOPROLOL TARTRATE 50 MG TAB 1 po bid METOPROLOL TARTRATE 97490508813 No Longer Active Ahmet Carbajal MD Active ABILIFY 15 MG ORAL TABS 1 tab daily ARIPIPRAZOLE 70533133950 No Longer Active Ahmet Carbajal MD Active PROZAC 20 MG ORAL CAPS 1 tab daily FLUOXETINE HCL 65930345522 No Longer Active Ahmet Carbajal MD Active AMBIEN 5 MG ORAL TABS 1 tab at bedtime ZOLPIDEM TARTRATE 47961202844 No Longer Active Ahmet Carbajal MD Active PREDNISONE 20 MG TAB 2 tabs daily for 4 days, 1 tab daily for 4 days, 1/2 tab daily for 4 days PREDNISONE 28530737828 No Longer Active Ahmet Carbajal MD Active KEFLEX 500 MG CAP 1 po TID x 10 days CEPHALEXIN 37988350046 No Longer Active Vishal Hui MD Active SAPHRIS 5 MG SUBL 1 po bid ASENAPINE MALEATE 84840084517 No Longer Active Jillina Mauricio SUPPLY CHAIN SYSTEMS MANAGER Active LATUDA 80 MG TABS Take one by mouth daily LURASIDONE HCL 88866083422 No Longer Active Jillina Fralebron SUPPLY CHAIN SYSTEMS MANAGER Active AMLODIPINE BESYLATE 5 MG TABS 1 tablet by mouth daily AMLODIPINE BESYLATE 02025591410 No Longer Active Jillina Fralebron WALTERSN Active AMITRIPTYLINE HCL 100 MG TAB one at hs AMITRIPTYLINE HCL 18103352897 No Longer Active Vishal Hui MD Active TRAZODONE HCL 100 MG TAB take 1 at bedtime TRAZODONE HCL 91496075544 No Longer Active Vishal Hui MD Active VYVANSE 40 MG CAPS 1 daily, LISDEXAMFETAMINE DIMESYLATE 56978005500 No Longer Active Vishal Hui MD Active IBUPROFEN 600 MG TAB 1 po TID PRN IBUPROFEN 41813136065 No Longer Active Vishal Hui MD Active PROZAC 20 MG CAP Take one by mouth daily FLUOXETINE HCL 21707097145 No Longer Active Vishal Hui MD Active BACTRIM DS 800-160 MG TABS 1 pill by mouth twice daily SULFAMETHOXAZOLE-TRIMETHOPRIM 87634749215 No Longer Active Sahara Rodriguez MD PhD Active DIFLUCAN 150 MG TAB 1 tablet by mouth daily FLUCONAZOLE 75166533708 No Longer Active Vishal Hui MD Active TIZANIDINE HCL 4 MG TABS 1 po q6hr PRN Muscle Spasm/Back Pain TIZANIDINE HCL 60576731993 Active TAMARA Casey Active CLINDAMYCIN HCL 150 MG CAPS 1 four times a day CLINDAMYCIN HCL 78572169225 No Longer Active Neeraj Collins MD Active KEFLEX 500 MG ORAL CAPS 1 cap QID by mouth CEPHALEXIN 28414326774 No Longer Active Neeraj Collins MD Active DIFLUCAN 150 MG TABS 1 pill every other day x 2 doses FLUCONAZOLE 22116620919 No Longer Active Sahara Rodriguez MD PhD Active MELATONIN 3 MG CAPS 2 po q hs MELATONIN 90991238614 No Longer Active Sahara Rodriguez MD PhD Active MULTIVITAMINS CAPS Take one by mouth daily MULTIPLE VITAMIN 97214164219 No Longer Active Sahara Rodriguez MD PhD Active BACTRIM DS 800-160 MG TAB 1 tab by mouth twice daily TRIMETHOPRIM-SULFAMETHOXAZOLE 97641771148 No Longer Active Sahara Rodriguez MD PhD Active [facility] PROBIOTIC ORAL CHEW 2 daily po PROBIOTIC PRODUCT 07850808215 No Longer Active Sahara Rodriguez MD PhD Active BACTRIM DS 800-160 MG TABS 1 po BID x 7 days SULFAMETHOXAZOLE-TRIMETHOPRIM 93392472044 No Longer Active Vishal Hui MD Active CHANTIX STARTING MONTH EARNEST 0.5 MG X 11 & 1 MG X 42 TABS 0.5mg daily for 3 days , then 0.5mg BID for 4 days, then 1mg BID VARENICLINE TARTRATE 66793973300 No Longer Active TAMARA Gray Active VERAPAMIL HCL CR 120 MG TAB CR 1 po bid VERAPAMIL HCL 74377964007 No Longer Active Vishal Hui MD Active METOPROLOL SUCCINATE 50 MG TB24 1 tablet by mouth daily METOPROLOL SUCCINATE 96241711538 No Longer Active Vishal Hui MD Active SAPHRIS 10 MG SUBL 1 tab po bid ASENAPINE MALEATE 06787621238 No Longer Active Vishal Hui MD Active LISINOPRIL 20 MG TABS 1 tab po qd LISINOPRIL 31479843869 No Longer Active Vishal Hui MD Active LATUDA 20 MG TABS Take one by mouth daily LURASIDONE HCL 77431643732 No Longer Active Vishal Hui MD Active TRAZODONE HCL 50 MG TABS 1/2 tab po qd prn for anxiety TRAZODONE HCL 78688360103 No Longer Active Vishal Hui MD Active OMEPRAZOLE 20 MG TBEC 1 po q a.m. 30min prior to first food intake OMEPRAZOLE 24582956580 Active TAMARA Casey Active RANITIDINE HCL 150 MG CAPS 1 twice a day RANITIDINE HCL 61287841286 Active Lynda Xiao LPN Active LINZESS 290 MCG CAPS Take one by mouth daily LINACLOTIDE 29018251579 No Longer Active Vishal Hui MD Active SAPHRIS 5 MG SUBL 1 tab po qd ASENAPINE MALEATE 88987097283 No Longer Active Vishal Hui MD Active ZALEPLON 10 MG CAPS 1 cap po every other night ZALEPLON 68004940223 No Longer Active Vishal Hui MD Active LYRICA 50 MG CAPS 1 tab po TID PREGABALIN 09474859421 No Longer Active Vishal Hui MD Active LORATADINE 10 MG TABS 1 tab po qd LORATADINE 88510582654 No Longer Active Vishal Hui MD Active VERAPAMIL HCL ER 180 MG CR-TABS 1 tab po bid VERAPAMIL HCL 29392743223 No Longer Active Vishal Hui MD Active MIRALAX POWD 1 capfull once daily POLYETHYLENE GLYCOL 3350 38899573063 No Longer Active Vishal Hui MD Active PREDNISONE 20 MG TABS 1 tab po qd PREDNISONE 32372408386 No Longer Active Renzo Thornton DO Active LEVOFLOXACIN 500 MG TABS 1 tab po qd LEVOFLOXACIN 71364980187 No Longer Active Renzo Thornton DO Active BUSPIRONE HCL 15 MG TABS 1 tab po TID BUSPIRONE HCL 42473553741 No Longer Active Renzo Thornton DO Active BENZTROPINE MESYLATE 1 MG TABS 1 tab po qd BENZTROPINE MESYLATE 18968004195 No Longer Active Renzo Thornton DO Active ATENOLOL 25 MG TABS 1 tab po qd ATENOLOL 98445222136 No Longer Active Renzo Thornton DO Active ESCITALOPRAM OXALATE 20 MG TABS 1 tab po qd ESCITALOPRAM OXALATE 91739923887 No Longer Active Renzo Thornton DO Active ADVAIR DISKUS 250-50 MCG/DOSE AEPB 1 puff BID FLUTICASONE-SALMETEROL 56143270435 No Longer Active Renzo Thornton DO Active PREDNISONE 20 MG TAB 2 tabs daily for 3 days, 1 tab daily for 3 days, 1/2 tab daily for 2 days PREDNISONE 26847631045 No Longer Active Vishal Hui MD Active CEFDINIR 300 MG CAPS by mouth twice a day CEFDINIR 55106959639 No Longer Active Vishal Hui MD Active LANSOPRAZOLE 30 MG CPDR 1 cap po qd LANSOPRAZOLE 27416996770 No Longer Active Vishal Hui MD Active BACLOFEN 20 MG TABS 1 tab po tid BACLOFEN 26983422878 No Longer Active Vishal Hui MD Active ADVAIR DISKUS 250-50 MCG/DOSE AEPB 1 puff BID ADVAIR DISKUS 250-50 MCG/DOSE AEPB FLUTICASONE-SALMETEROL Inactive ESCITALOPRAM OXALATE 20 MG TABS 1 tab po qd ESCITALOPRAM OXALATE 20 MG TABS 934272 ESCITALOPRAM OXALATE Inactive ATENOLOL 25 MG TABS 1 tab po qd ATENOLOL 25 MG TABS 367195 ATENOLOL Inactive BENZTROPINE MESYLATE 1 MG TABS 1 tab po qd BENZTROPINE MESYLATE 1 MG TABS 601659 BENZTROPINE MESYLATE Inactive BUSPIRONE HCL 15 MG TABS 1 tab po TID BUSPIRONE HCL 15 MG TABS 165177 BUSPIRONE HCL Inactive LEVOFLOXACIN 500 MG TABS 1 tab po qd LEVOFLOXACIN 500 MG TABS 688235 LEVOFLOXACIN Inactive PREDNISONE 20 MG TABS 1 tab po qd PREDNISONE 20 MG TABS 166014 PREDNISONE Inactive MIRALAX POWD 1 capfull once daily MIRALAX POWD 766146 POLYETHYLENE GLYCOL 3350 Inactive VERAPAMIL HCL ER 180 MG CR-TABS 1 tab po bid VERAPAMIL HCL ER 180 MG CR-TABS VERAPAMIL HCL Inactive LORATADINE 10 MG TABS 1 tab po qd LORATADINE 10 MG TABS 653752 LORATADINE Inactive LYRICA 50 MG CAPS 1 tab po TID LYRICA 50 MG CAPS PREGABALIN Inactive ZALEPLON 10 MG CAPS 1 cap po every other night ZALEPLON 10 MG CAPS 908733 ZALEPLON Inactive SAPHRIS 5 MG SUBL 1 tab po qd SAPHRIS 5 MG SUBL ASENAPINE MALEATE Inactive TRAZODONE HCL 50 MG TABS 1/2 tab po qd prn for anxiety TRAZODONE HCL 50 MG TABS 068359 TRAZODONE HCL Inactive LATUDA 20 MG TABS Take one by mouth daily LATUDA 20 MG TABS LURASIDONE HCL Inactive LISINOPRIL 20 MG TABS 1 tab po qd LISINOPRIL 20 MG TABS 103844 LISINOPRIL Inactive SAPHRIS 10 MG SUBL 1 tab po bid SAPHRIS 10 MG SUBL ASENAPINE MALEATE Inactive METOPROLOL SUCCINATE 50 MG TB24 1 tablet by mouth daily METOPROLOL SUCCINATE 50 MG TB24 METOPROLOL SUCCINATE Inactive VERAPAMIL HCL CR 120 MG TAB CR 1 po bid VERAPAMIL HCL CR 120 MG TAB CR VERAPAMIL HCL Inactive CHANTIX STARTING MONTH EARNETS 0.5 MG [...] twice daily BACTRIM DS 800-160 MG TAB 802698 TRIMETHOPRIM-SULFAMETHOXAZOLE Inactive MULTIVITAMINS CAPS Take one by mouth daily MULTIVITAMINS CAPS MULTIPLE VITAMIN Inactive MELATONIN 3 MG CAPS 2 po q hs MELATONIN 3 MG CAPS 542818 MELATONIN Inactive KEFLEX 500 MG ORAL CAPS 1 cap QID by mouth KEFLEX 500 MG ORAL CAPS 021026 CEPHALEXIN Inactive CLINDAMYCIN HCL 150 MG CAPS 1 four times a day CLINDAMYCIN HCL 150 MG CAPS 933998 CLINDAMYCIN HCL Inactive DIFLUCAN 150 MG TAB 1 tablet by mouth daily DIFLUCAN 150 MG TAB 173882 FLUCONAZOLE Inactive PROZAC 20 MG CAP Take one by mouth daily PROZAC 20 MG CAP 938646 FLUOXETINE HCL Inactive IBUPROFEN 600 MG TAB 1 po TID PRN IBUPROFEN 600 MG TAB 871972 IBUPROFEN Inactive VYVANSE 40 MG CAPS 1 daily, VYVANSE 40 MG CAPS LISDEXAMFETAMINE DIMESYLATE Inactive TRAZODONE HCL 100 MG TAB take 1 at bedtime TRAZODONE HCL 100 MG TAB 613380 TRAZODONE HCL Inactive AMITRIPTYLINE HCL 100 MG TAB one at hs AMITRIPTYLINE HCL 100 MG TAB 651530 AMITRIPTYLINE HCL Inactive AMLODIPINE BESYLATE 5 MG TABS 1 tablet by mouth daily AMLODIPINE BESYLATE 5 MG TABS 516834 AMLODIPINE BESYLATE Inactive LATUDA 80 MG TABS Take one by mouth daily LATUDA 80 MG TABS LURASIDONE HCL Inactive SAPHRIS 5 MG SUBL 1 po bid SAPHRIS 5 MG SUBL ASENAPINE MALEATE Inactive PREDNISONE 20 MG TAB 2 tabs daily for 4 days, 1 tab daily for 4 days, 1/2 tab daily for 4 days PREDNISONE 20 MG TAB 587960 PREDNISONE Inactive AMBIEN 5 MG ORAL TABS 1 tab at bedtime AMBIEN 5 MG ORAL TABS 900214 ZOLPIDEM TARTRATE Inactive PROZAC 20 MG ORAL CAPS 1 tab daily PROZAC 20 MG ORAL CAPS 566750 FLUOXETINE HCL Inactive ABILIFY 15 MG ORAL TABS 1 tab daily ABILIFY 15 MG ORAL TABS 937863 ARIPIPRAZOLE Inactive METOPROLOL TARTRATE 50 MG TAB 1 po bid METOPROLOL TARTRATE 50 MG TAB 938742 METOPROLOL TARTRATE Inactive TRAMADOL HCL 50 MG TABS 1-2 po TID PRN Pain TRAMADOL HCL 50 MG TABS 948203 TRAMADOL HCL Inactive PIROXICAM 20 MG CAPS 1 cap po qd PRN Pain PIROXICAM 20 MG CAPS 834458 PIROXICAM Inactive MINIPRESS 2 MG CAPS 4 cap po at night MINIPRESS 2 MG CAPS 574760 PRAZOSIN HCL Inactive MIRALAX PACK 1 po qd PRN Constipation MIRALAX PACK 199612 POLYETHYLENE GLYCOL 3350 Inactive METOPROLOL TARTRATE 25 MG ORAL TABS 1/2 tablet twice daily for heart rate and blood pressure METOPROLOL TARTRATE 25 MG ORAL TABS 378319 METOPROLOL TARTRATE Inactive VALIUM 5 MG TAB Take 1-2 tablets daily VALIUM 5 MG TAB 305980 DIAZEPAM Inactive FLAGYL 500 MG TAB 1 tablet by mouth bid FLAGYL 500 MG TAB 423326 METRONIDAZOLE Inactive DICLOFENAC POTASSIUM TABS Take 1 tablet twice a day (pt. is not sure of the dose.) DICLOFENAC POTASSIUM TABS DICLOFENAC POTASSIUM TABS Inactive ZITHROMAX Z-EARNEST 250 MG TABS 2 today and then 1 daily for 4 days ZITHROMAX Z-EARNEST 250 MG TABS 8673777 AZITHROMYCIN Inactive PREDNISONE 20 MG TABS 2 daily for 5 days then 1 daily for 5 days PREDNISONE 20 MG TABS 087094 PREDNISONE Inactive PROAIR HFA 108 (90 BASE) MCG/ACT AERS 2 puffs four times a day as needed 2015 PROAIR HFA 108 (90 BASE) MCG/ACT AERS ALBUTEROL SULFATE Inactive HYDROCODONE-ACETAMINOPHEN 5-325 MG TABS 1 to 2 four times a day as needed for pain use until can be seen by specialist HYDROCODONE- ACETAMINOPHEN 5-325 MG TABS 975594 HYDROCODONE-ACETAMINOPHEN Inactive TESSALON PERLES 100 MG CAP 1 to 2 tablets by mouth 3 times daily as needed for cough TESSALON PERLES 100 MG CAP 918826 BENZONATATE Inactive CHANTIX STARTING MONTH EARNEST 0.5 [...] Pain 2015 DICLOFENAC SODIUM 50 MG TBEC 395785 DICLOFENAC SODIUM Inactive TOPAMAX 50 MG ORAL TABS 1 tab twice daily TOPAMAX 50 MG ORAL TABS 316128 TOPIRAMATE Inactive VIIBRYD 10 MG ORAL TABS Take 1 tablet once a day VIIBRYD 10 MG ORAL TABS VILAZODONE HCL Inactive LEVOFLOXACIN 500 MG ORAL TABS po daily LEVOFLOXACIN 500 MG ORAL TABS 099402 LEVOFLOXACIN Inactive METHYLPREDNISOLONE 4 MG ORAL TABS po daily METHYLPREDNISOLONE 4 MG ORAL TABS 550833 METHYLPREDNISOLONE Inactive OXYCODONE HCL ER 10 MG ORAL T12A 1/2 tab by mouth every 4 hours prn OXYCODONE HCL ER 10 MG ORAL T12A OXYCODONE HCL Inactive FLAGYL 500 MG TAB 1 tablet by mouth bid FLAGYL 500 MG TAB 827285 METRONIDAZOLE Inactive MONISTAT 7 COMBO PACK WOODROW 100 & 2 MG-% (9GM) VAG KIT 1 applicatorful per vagina q pm x 7 MONISTAT 7 COMBO PACK WOODROW 100 & 2 MG-% (9GM) VAG KIT MICONAZOLE NITRATE Inactive BACTRIM DS 800-160 MG TABS 1 twice a day BACTRIM DS 800-160 MG TABS 260335 SULFAMETHOXAZOLE-TRIMETHOPRIM Inactive TRAMADOL HCL 50 MG TABS 1/2-1 tab TID PRN TRAMADOL HCL 50 MG TABS 113399 TRAMADOL HCL Inactive ABILIFY MAINTENA 400 MG IM SUSR 400mg injection every 26 days ABILIFY MAINTENA 400 MG IM SUSR ARIPIPRAZOLE Inactive KLONOPIN 1 MG ORAL TABS 1 tab po TID KLONOPIN 1 MG ORAL TABS 039878 CLONAZEPAM Inactive ADVAIR DISKUS 250-50 MCG/DOSE INH AEPB 1 puff twice a day for asthma ADVAIR DISKUS 250-50 MCG/DOSE INH AEPB FLUTICASONE- SALMETEROL Inactive BENADRYL 25 MG CAP 4 po at bedtime for insomnia BENADRYL 25 MG CAP DIPHENHYDRAMINE HCL Inactive PREDNISONE 20 MG TABS 2 daily for 5 days then 1 daily for 5 days PREDNISONE 20 MG TABS 550964 PREDNISONE Inactive HYDROCODONE-ACETAMINOPHEN 5-325 MG ORAL TABS 1 tab two times a day HYDROCODONE-ACETAMINOPHEN 5-325 MG ORAL TABS [id number] HYDROCODONE-ACETAMINOPHEN Inactive ZITHROMAX Z-EARNEST 250 MG TABS 2 today and then 1 daily for 4 days ZITHROMAX Z-EARNEST 250 MG TABS [id number] AZITHROMYCIN Inactive GUAIFENESIN-CODEINE 100-10 MG/5ML SYRP 5ml every 4 to 6 hours as needed for cough GUAIFENESIN-CODEINE 100-10 MG/5ML SYRP [id number] GUAIFENESIN-CODEINE Inactive HALOPERIDOL 10 MG ORAL TABS 1 tab q.d HALOPERIDOL 10 MG ORAL TABS [id number] HALOPERIDOL Inactive ASPIRIN 325 MG ORAL TABS 1 tab q.d ASPIRIN 325 MG ORAL TABS [id number] ASPIRIN Inactive FLUTICASONE PROPIONATE 50 MCG/ACT SUSP 2 sprays each nostril daily before bed. FLUTICASONE PROPIONATE 50 MCG/ACT SUSP [id number] FLUTICASONE PROPIONATE Inactive ZOFRAN 4 MG TABS 1 po q6hr PRN Nausea ZOFRAN 4 MG TABS [id number] ONDANSETRON HCL Inactive KEFLEX 500 MG CAP 1 po qid KEFLEX 500 MG CAP 552649 CEPHALEXIN Inactive ACETAMINOPHEN-CODEINE 120-12 MG/5ML SOLN 5 ml by mouth every 4-6 hours if needed for cough ACETAMINOPHEN-CODEINE 120-12 MG/5ML SOLN 291748 ACETAMINOPHEN-CODEINE Inactive PREDNISONE 20 MG TAB 1 tablet daily x 4 days PREDNISONE 20 MG TAB 611213 PREDNISONE Inactive TROPICAMIDE 0.5 % OPHTH SOLN 1 drop PRN eye spasms TROPICAMIDE 0.5 % OPHTH SOLN 784177 TROPICAMIDE Inactive LEVAQUIN 500 MG TABS 1 daily for infection LEVAQUIN 500 MG TABS 998528 LEVOFLOXACIN Inactive PREDNISONE 10 MG TABS 2 daily for 5 days then 1 daily for 5 days PREDNISONE 10 MG TABS 692760 PREDNISONE Inactive EQ NICOTINE 21 MG/24HR TRANS [...] twice a day MUPIROCIN 2 % OINT 896235 MUPIROCIN Inactive BACTRIM DS 800-160 MG TAB Take one (1) tablet by mouth twice a day for 5 days BACTRIM DS 800-160 MG TAB [id number] TRIMETHOPRIM- SULFAMETHOXAZOLE Inactive LACTULOSE 10 GM/15ML ORAL SOLN 30mL oral BID for IBS-C LACTULOSE 10 GM/15ML ORAL SOLN 694402 LACTULOSE Inactive MIRALAX ORAL POWD 17GMS DAILY IN WATER MIRALAX ORAL POWD 498997 POLYETHYLENE GLYCOL 3350 Inactive CEFDINIR 300 MG CAPS by mouth twice a day CEFDINIR 300 MG CAPS 485226 CEFDINIR Inactive PREDNISONE 20 MG TAB 2 tabs daily for 3 days, 1 tab daily for 3 days, 1/2 tab daily for 2 days PREDNISONE 20 MG TAB 310027 PREDNISONE Inactive BACTRIM DS 800-160 MG TABS 1 po BID x 7 days BACTRIM DS 800-160 MG TABS 19820521 SULFAMETHOXAZOLE-TRIMETHOPRIM Inactive DIFLUCAN 150 MG TABS 1 pill every other day x 2 doses DIFLUCAN 150 MG TABS 284787 FLUCONAZOLE Inactive BACTRIM DS 800-160 MG TABS 1 pill by mouth twice daily BACTRIM DS 800-160 MG TABS 19820521 SULFAMETHOXAZOLE-TRIMETHOPRIM Inactive KEFLEX 500 MG CAP 1 po TID x 10 days KEFLEX 500 MG CAP 851427 CEPHALEXIN Inactive Advance Directives Directive Description Start [...] % 11.0-15.0 platelet count 443 THOUSAND/UL 10*3/mm3 [phone]/03/01 mean platelet volume 8.2 fL 7.5-12.5 leukocyte [...] % 11.0-15.0 platelet count 349 THOUSAND/UL 10*3/mm3 422-376 7626/04/12 mean platelet volume 8.4 fL 7.5-12.5 Lab [...] 369 10^3/MM^3 10*3/mm3 142-424 Lab Report: Chlamydia/GC APTIMA/03563 - Lab chlamydia DNA probe NOT DETECTED NOT DETECTED Lab Report: Chlamydia/GC APTIMA/20420 - Microbiology Neisseria gonorrhoeae DNA probe NOT DETECTED NOT DETECTED Lab Report: Chlamydia/GC APTIMA/14122, Urinalysis, Complete, with Reflex ... - Lab chlamydia DNA probe NOT DETECTED NOT DETECTED Lab Report: Chlamydia/GC APTIMA/56061, Urinalysis, Complete, with Reflex ... - Microbiology Neisseria gonorrhoeae DNA probe NOT DETECTED NOT DETECTED Lab Report: Chlamydia/GC APTIMA/06863, Urinalysis, Complete, with Reflex ... - Urinalysis microalbumin/total urine volume 2 mg/L Units converted. See lab report for original value. microalbumin/creatinine ratio, urine 9 MCG/MG CREAT mg/L <30 Lab Report: Comp. Metabolic Panel - Chemistry sodium, serum 140 mmol/L [phone]/08/08 carbon dioxide, venous blood 33.7 mmol/L 21.0-32.0 potassium, serum 5.0 mmol/L 3.5-5.2 chloride, serum 103 mmol/L 98-107 blood glucose 80 mg/dL 65-110 urea nitrogen, blood 13 mg/dL 7-18 creatinine, serum 0.88 mg/dL 0.55-1.30 alanine aminotransferase (SGPT), serum 54 U/L 12-78 aspartate aminotransferase (SGOT), serum 29 U/L 15-37 calcium, serum 9.7 mg/dL 8.5-10.1 bilirubin, serum, total 0.30 mg/dL 0.00-1.00 sodium, serum 140 mmol/L 768-783 5464/06/28 carbon dioxide, venous blood 23.8 mmol/L 21.0-32.0 [...] 5.0-8.5 Encounters Code Encounter Date Provider Facility CPT-55963 Level 3 Est. Patient 10:53:17 CDT Suzan Boo [facility] CPT-84224 Level 3 Est. Patient 11:08:35 CDT Suzan Boo [facility] CPT-53236 Level 3 Est. [facility] 15:55:[facility] Level 4 Est. Patient 10:49:34 [facility]-34182 Level 3 Est. Patient 10:00:25 CDT Suzan Boo [facility] CPT-39111 Level 3 Est. Patient 10:29:30 CDT Suzan Boo [facility] CPT-33621 Level 3 Est. Patient 11:04:38 CDT Renzo Thornton [facility] CPT-72370 Level 3 Est. Patient 11:15:58 [employer] Renzo Thornton [facility] CPT-18995 Level 3 Est. Patient 15:28:23 [employer] Suzan Boo [facility] CPT-13477 Level 4 Est. Patient 10:20:54 [employer] Suzan Boo [facility] CPT-66195 Level 3 Est. Patient 11:47:37 [employer] Ahmet Carbajal MD [facility] CPT-14675 Level 3 Est. Patient 10:40:11 [employer] Ahmet Carbajal MD [facility] CPT-49920 Level 3 Est. Patient 15:07:06 [employer] Neeraj Collins MD [facility] CPT-16635 Level 4 Est. Patient 14:45:00 [employer] Ahmet Carbajal MD [facility] CPT-33823 Level 3 Est. Patient 13:59:59 CDT Luigi Martínez [facility] CPT-68679 Level 3 Est. Patient 18:18:53 CDT Neeraj Collins MD [facility] CPT-54157 Level 3 Est. Patient 15:50:44 CDT Vishal Hui MD [facility] CPT-71544 Level 3 Est. Patient 11:36:17 CDT Ahmet Carbajal MD [facility] CPT-03592 Level 3 Est. Patient 13:29:16 CDT Vishal Hui MD [facility] CPT-28827 Level 3 Est. Patient 14:27:52 CDT Neeraj Collins MD [facility] CPT-74071 Level 3 Est. Patient 08:56:03 CDT Luigi Martínez [facility] CPT-12952 Level 4 Est. Patient 12:11:48 CDT Fabiola Johnson [facility] CPT-75651 Level 3 New Patient 16:53:37 CDT Albert Caldera MD [facility] CPT-01241 Level 3 Est. Patient 11:25:49 CDT Renzo Thornton DO [facility] CPT-93009 Level 3 Est. Patient 15:22:01 CDT Ahmet Carbajal MD [facility] CPT-62806 Level 4 Est. Patient 09:00:51 [employer] Vishal Hui MD [facility] CPT-40321 Level 3 Est. Patient 11:37:33 [employer] Vishal Hui MD [facility] CPT-37159 Level 3 Est. Patient 08:41:09 [employer] Vishal Hui MD [facility] CPT-32783 Level 4 Est. Patient 10:19:35 [employer] Vishal Hui MD [facility] CPT-22443 Level 3 Est. Patient 13:35:45 CDT Vishal Hui MD [facility] CPT-47019 Level 4 Est. Patient 10:08:37 CDT Vishal Hui MD [facility] CPT-95087 Level 3 Est. Patient 11:22:10 CDT Vishal Hui MD [facility] CPT-33290 Level 3 Est. Patient 11:03:32 CDT Sahara Rodriguez MD [facility]-53976 Level 3 Est. Patient 09:41:35 CDT Vishal Hui MD [facility] CPT-67993 Level 3 Est. Patient 12:00:41 CDT Neeraj Collins MD [facility] CPT-96706 Level 3 Est. Patient 09:16:24 CDT Vishal Hui MD [facility] CPT-18621 Level 4 Est. Patient 13:59:09 CDT Neeraj Collins MD [facility] CPT-12368 Level 3 Est. Patient 15:19:43 CDT Renzo Thornton DO [facility] CPT-23237 Level 3 Est. Patient 18:10:26 CDT Sahara Rodriguez MD PhD [facility] CPT-73202 Level 3 Est. Patient 14:49:50 CDT Vishal Hui MD [facility] CPT-10342 Level 4 Est. Patient 18:41:46 CDT Neeraj Collins MD [facility] CPT-13229 Level 4 Est. Patient 09:18:38 [employer] Vishal Hui MD [facility] CPT-10601 Level 3 Est. Patient 14:43:55 [employer] Vishal Hui MD [facility] CPT-40628 Level 3 Est. Patient 15:26:33 [employer] Sahara Rodriguez MD PhD [facility] CPT-19662 Level 3 Est. Patient 10:32:14 [employer] Vishal Hui MD [facility] CPT-53109 Level 3 Est. Patient 15:12:52 [employer] Vishal Hui MD [facility] CPT-51307 Level 4 Est. Patient 09:19:27 CDT Vishal Hui MD [facility] CPT-77365 Level 3 Est. Patient 15:53:00 CDT Renzo Thornton [facility] CPT-47013 Level 3 Est. Patient 15:50:30 CDT Renzo Thornton [facility] CPT-67836 Level 3 Est. Patient 16:55:24 CDT Vishal Hui MD [facility] Procedures Code Procedure Name Date Entry Date Standard Description CPT-67031 Venipuncture Draw Fee 10:53:17 CDT CPT-12347 EKG Trac and Interp - XRAY USE ONLY 15:59:30 CDT 09/13 CPT-87792 Chest 1V Frontal - XRAY USE ONLY 15:59:30 CDT CPT-51027 Venipuncture Draw Fee 15:44:02 CDT CPT-71225 Venipuncture Draw Fee 08:41:12 CDT CPT-02302 Abd compl w upright - XRAY USE ONLY 10:27:59 CDT 06/28 CPT-77542 Smoking Cessation counseling 11:15:58 [employer] CPT-G0439 [facility] Annual Wellness Exam 09:30:58 [employer] CPT-58090 TSH - LAB USE ONLY 08:50:26 [employer] CPT-96636 CBC - LAB USE ONLY 08:50:26 [employer] CPT-89841 Venipuncture Draw Fee 08:50:26 [employer] CPT-23359 Abx/Therapy Injection 17:34:30 [employer] CPT-15603 Nexplanon Removal with Reinsertion 14:09:32 CDT CPT-J7307 Nexplanon (Implant) 14:09:32 CDT CPT-OV Office Visit 14:09:32 CDT CPT-87399 UA w micro - LAB USE ONLY 16:21:13 CDT CPT-37514 Wet Mount - LAB USE ONLY 16:21:13 CDT CPT-60934 First Vx - Ix admin for Medicare patients 14:37:47 CDT CPT-00360 Fluzone Preservative Free Intramuscular Suspension 14:37 :47 CDT CPT-65710 Abx/Therapy Injection 13:54:22 CDT CPT-53516 Abx/Therapy Injection 08:47:09 CDT CPT-25696 Abx/Therapy Injection 13:29:56 CDT CPT-12361 Abx/Therapy Injection 08:36:16 CDT CPT-43658 Wet Mount - LAB USE ONLY 17:44:58 CDT CPT-85996 UA w micro - LAB USE ONLY 17:44:58 CDT CPT-51511 CMP - LAB USE ONLY 17:44:58 CDT CPT-38847 Venipuncture Draw Fee 17:44:58 CDT CPT-55180 Cervical Min 4V - XRAY USE ONLY 09:01:40 CDT CPT-96896 Chest 2V Frontal and Lat - XRAY USE ONLY 11:06:31 CDT CPT-32188 EKG Trac and Interp - XRAY USE ONLY 11:31:43 CDT 08/26 CPT-J3420 Vitamin B12 1000mcg (Cyanocobalamin) 08:10:26 [employer] 04/12 CPT-85498 Abx/Therapy Injection 08:10:26 [employer] CPT-G0438 Initial Annual Wellness Exam 19:01:01 [employer] CPT-J3420 Vitamin B12 1000mcg (Cyanocobalamin) 16:57:46 CDT 08/14 CPT-31207 Recombivax HB Injection Suspension 5 MCG/0.5ML 08:37:50 [employer] CPT-95596 Immunization Single Admin 08:37:50 [employer] CPT-J3420 Vitamin B12 1000mcg (Cyanocobalamin) 08:32:16 [employer] 03/11 CPT-61550 Abx/Therapy Injection 08:32:16 [employer] CPT-61309 Chest 2V Frontal and Lat 11:46:38 [employer] CPT-54054 Venipuncture Draw Fee 09:12:45 [employer] CPT-J3420 Vitamin B12 1000mcg (Cyanocobalamin) 08:50:15 [employer] 02/08 CPT-77031 Abx/Therapy Injection 08:50:15 [employer] CPT-Cryo Cryotherapy 10:19:35 [employer] CPT-000 Give Appropriate Flu Vaccine 09:22:16 CDT CPT-J3420 Vitamin B12 1000mcg (Cyanocobalamin) 19:08:57 CDT 01/11 CPT-28671 Abx/Therapy Injection 19:08:57 CDT CPT-J3420 Vitamin B12 1000mcg (Cyanocobalamin) 08:19:08 CDT 12/11 CPT-45651 Abx/Therapy Injection 08:19:08 CDT CPT-J3420 Vitamin B12 1000mcg (Cyanocobalamin) 14:48:00 CDT 11/09 CPT-73751 Abx/Therapy Injection 14:47:59 CDT CPT-J3420 Vitamin B12 1000mcg (Cyanocobalamin) 08:34:04 CDT 10/09 CPT-53771 Abx/Therapy Injection 08:34:04 CDT CPT-J3420 Vitamin B12 1000mcg (Cyanocobalamin) 09:18:52 CDT 09/11 CPT-53426 Abx/Therapy Injection 09:18:52 CDT CPT-J3420 Vitamin B12 1000mcg (Cyanocobalamin) 08:35:44 CDT 09/04 CPT-67176 Abx/Therapy Injection 08:35:44 CDT CPT-41038 Immunization Single Admin 11:07:16 CDT CPT-68811 Hepatitis B adult IM 11:07:16 CDT CPT-J3420 Vitamin B12 1000mcg (Cyanocobalamin) 11:00:49 CDT 08/28 CPT-J1040 Depo Medrol 80 mg (Methyl Prednisolone Acetate) 11:00: 49 CDT CPT-58892 Abx/Therapy Injection 11:00:49 CDT CPT-J1040 Depo Medrol 80 mg (Methyl Prednisolone Acetate) 09:16: 23 CDT CPT-J3420 Vitamin B12 1000mcg (Cyanocobalamin) 08:27:05 CDT 08/20 CPT-74782 Abx/Therapy Injection 08:27:05 CDT CPT-01912 Recombivax HB Injection Suspension 5 MCG/0.5ML 10:00:41 CDT CPT-09464 Administration single or combination vaccine inc oral 10 :00:41 CDT CPT-61952 Sono transvag pelvis non OB uterus ovaries cervix 16:36: 57 CDT CPT-08971 LS spine comp w obliq 09:50:55 [employer] CPT-32417 Abd compl w upright 09:50:55 [employer] CPT-J1100 Decadron 4mg (Dexamethasone) 15:51:24 [employer] CPT-J1030 Depo Medrol 40 mg (Methyl Prednisolone Acetate) 15:51: 24 [employer] CPT-09468 Abx/Therapy Injection 15:51:24 [employer] CPT-J1100 Decadron 4mg (Dexamethasone) 15:26:33 [employer] CPT-J1030 Depo Medrol 40 mg (Methyl Prednisolone Acetate) 15:26: 33 [employer] CPT-21795 Sono retroperitoneal complete kidneys and bladder 17:15: 30 CDT CPT-93038 Abd compl w upright 16:09:25 CDT CPT-J1100 Decadron 8mg (Dexamethasone) 17:07:57 CDT CPT-23365 Abx/Therapy Injection 17:07:57 CDT CPT-J1100 Decadron 8mg (Dexamethasone) 16:55:24 CDT CPT-94443 Chest 2V Frontal and Lat 16:32:44 CDT
--- OUTSIDE RECORDS SUMMARY | 2016-11-04 18:45 | XMS REPORT | Clinical Summary ---
Author Author Admin, BRIELLEE Organization [employer] Address Unknown Phone Unavailable Allergies, Adverse Reactions, [...] sites Morbid obesity 278.01 Active Juliet Kimbrough BLACK ASH BURNER OPERATOR Morbid obesity 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 Active [...] breath Nocturnal hypoxia 799.02 Active Fabiola Johnson BLACK ASH BURNER OPERATOR Hypoxemia Neck pain 723.1 Resolved Vishal [...] fibula Vaginal discharge 623.5 Active Luigi Martínez BLACK ASH BURNER OPERATOR Leukorrhea, not specified as infective DYSURIA [...] TABS 1/2-1 tab TID PRN TRAMADOL HCL 26105877794 Active Lynda Juarezephraim FIRE MANAGER Active PROAIR HFA 108 (90 BASE) MCG/ACT AERS 2 puffs four times a day as needed 2015 ALBUTEROL SULFATE 74639451536 Active Ahmet Carbajal MD Active EQ NICOTINE 21 MG/24HR TRANS PT24 Apply daily to stop smoking NICOTINE 68459292607 Active Ahmet Carbajal MD Active BACTRIM DS 800-160 MG TABS 1 twice a day SULFAMETHOXAZOLE- TRIMETHOPRIM 29536083561 Active Ahmet Carbajal MD Active ADVAIR DISKUS 250-50 MCG/DOSE INH AEPB 1 puff twice a day for asthma FLUTICASONE-SALMETEROL 65061825083 Active Ahmet Carbajal MD Active MONISTAT 7 COMBO PACK WOODROW 100 & 2 MG-% (9GM) VAG KIT 1 applicatorful per vagina q pm x 7 MICONAZOLE NITRATE 84318543618 No Longer Active Ahmet Carbajal MD Active FLAGYL 500 MG TAB 1 tablet by mouth bid METRONIDAZOLE 20475146759 No Longer Active Ahmet Carbajal MD Active OXYCODONE HCL ER 10 MG ORAL T12A 1/2 tab by mouth every 4 hours prn OXYCODONE HCL 12982342337 No Longer Active Ahmet Carbajal MD Active METHYLPREDNISOLONE 4 MG ORAL TABS po daily METHYLPREDNISOLONE 92716540913 No Longer Active Ahmet Carbajal MD Active LEVOFLOXACIN 500 MG ORAL TABS po daily LEVOFLOXACIN 76667207297 No Longer Active Ahmet Carbajal MD Active VIIBRYD 10 MG ORAL TABS Take 1 tablet once a day VILAZODONE HCL 31144669359 No Longer Active Ahmet Carbajal MD Active TOPAMAX 50 MG ORAL TABS 1 tab twice daily TOPIRAMATE 39414917780 No Longer Active Ahmet Carbajal MD Active DICLOFENAC SODIUM 50 MG TBEC 1 tablet by mouth four times daily PRN Pain 2015 DICLOFENAC SODIUM 02226055316 No Longer Active Ahmet Carbajal MD Active ADZENYS XR-ODT 6.3 MG ORAL TBED 1 tab po daily for ADHD AMPHETAMINE 49929198810 No Longer Active Ahmet Carbajal MD Active CHANTIX 1 MG TABS 1 twice a day to help quit smoking VARENICLINE TARTRATE 41028007856 No Longer Active Dipika Burgos MD Active CHANTIX STARTING MONTH EARNEST 0.5 MG X 11 & 1 MG X 42 TABS take as directed 2015 VARENICLINE TARTRATE 87748158401 No Longer Active Dipika Burgos MD Active TESSALON PERLES 100 MG CAP 1 to 2 tablets by mouth 3 times daily as needed for cough BENZONATATE 46856933782 No Longer Active Luigi Martínez BLACK ASH BURNER OPERATOR Active ABILIOMAR MAINTENA 400 MG IM SUSR 400mg injection every 26 days ARIPIPRAZOLE 40467908116 Active Silvia Ervinum FIRE MANAGER Active IMITREX 50 MG ORAL TABS 0.5 po x 1 PRN Headache. May repeat dose x 1 in 2 hours if needed SUMATRIPTAN SUCCINATE 07833257750 Active Lynda Xiao FIRE MANAGER Active HYDROCODONE-ACETAMINOPHEN 5-325 MG TABS 1 to 2 four times a day as needed for pain use until can be seen by specialist HYDROCODONE- ACETAMINOPHEN 40961332323 No Longer Active Vishal Hui MD Active PROAIR HFA 108 (90 BASE) MCG/ACT AERS 2 puffs four times a day as needed 2015 ALBUTEROL SULFATE 06644595634 No Longer Active Vishal Hui MD Active PREDNISONE 20 MG TABS 2 daily for 5 days then 1 daily for 5 days PREDNISONE 63784087022 No Longer Active Vishal Hui MD Active ZITHROMAX Z-EARNEST 250 MG TABS 2 today and then 1 daily for 4 days AZITHROMYCIN 85861369493 No Longer Active Vishal Hui MD Active DICLOFENAC POTASSIUM TABS Take 1 tablet twice a day (pt. is not sure of the dose.) DICLOFENAC POTASSIUM TABS 20123834284 No Longer Active Vishal Hui MD Active VERAPAMIL HCL ER 120 MG ORAL CR-TABS Take 1 tablet by mouth twice a day. VERAPAMIL HCL 13004945232 Active Vishal Hui MD Active FLAGYL 500 MG TAB 1 tablet by mouth bid METRONIDAZOLE 37207757553 No Longer Active Vishal Hui MD Active FLUTICASONE PROPIONATE 50 MCG/ACT SUSP 2 sprays each nostril daily before bed. FLUTICASONE PROPIONATE 52885854590 Active Fabiola Johnson APRN Active BENADRYL 25 MG CAP 4 po at bedtime for insomnia DIPHENHYDRAMINE HCL 70459817177 Active Fabiola Johnson APRN Active KLONOPIN 1 MG ORAL TABS 1 tab po TID CLONAZEPAM 00864321770 Active Fabiola Johnson APRN Active VALIUM 5 MG TAB Take 1-2 tablets daily DIAZEPAM 52942379929 No Longer Active Fabiola Johnson APRN Active METOPROLOL TARTRATE 25 MG ORAL TABS 1/2 tablet twice daily for heart rate and blood pressure METOPROLOL TARTRATE 13475236915 No Longer Active Fabiola Johnson APRN Active MIRALAX ORAL POWD 17GMS DAILY IN WATER POLYETHYLENE GLYCOL 3350 67333892833 Active Vishal Hui MD Active MIRALAX PACK 1 po qd PRN Constipation POLYETHYLENE GLYCOL 3350 29697479548 No Longer Active Ahmet Carbajal MD Active MINIPRESS 2 MG CAPS 4 cap po at night PRAZOSIN HCL 75451266998 No Longer Active Ahmet Carbajal MD Active PIROXICAM 20 MG CAPS 1 cap po qd PRN Pain PIROXICAM 21300107087 No Longer Active Ahmet Carbajal MD Active TRAMADOL HCL 50 MG TABS 1-2 po TID PRN Pain TRAMADOL HCL 90567106504 No Longer Active Ahmet Carbajal MD Active METOPROLOL TARTRATE 50 MG TAB 1 po bid METOPROLOL TARTRATE 28425497923 No Longer Active Ahmet Carbajal MD Active ABILIFY 15 MG ORAL TABS 1 tab daily ARIPIPRAZOLE 04571427780 No Longer Active Ahmet Carbajal MD Active PROZAC 20 MG ORAL CAPS 1 tab daily FLUOXETINE HCL 59340650154 No Longer Active Ahmet Carbajal MD Active AMBIEN 5 MG ORAL TABS 1 tab at bedtime ZOLPIDEM TARTRATE 06123688413 No Longer Active Ahmet Carbajal MD Active PREDNISONE 20 MG TAB 2 tabs daily for 4 days, 1 tab daily for 4 days, 1/2 tab daily for 4 days PREDNISONE 35371453640 No Longer Active Ahmet Carbajal MD Active KEFLEX 500 MG CAP 1 po TID x 10 days CEPHALEXIN 50311144454 No Longer Active Vishal Hui MD Active SAPHRIS 5 MG SUBL 1 po bid ASENAPINE MALEATE 69699547489 No Longer Active Luigi Martínez APRN Active LATUDA 80 MG TABS Take one by mouth daily LURASIDONE HCL 38722332105 No Longer Active Jillina Frazelephraim BLACK ASH BURNER OPERATOR Active AMLODIPINE BESYLATE 5 MG TABS 1 tablet by mouth daily AMLODIPINE BESYLATE 08654000724 No Longer Active Jillina Fralebron BLACK ASH BURNER OPERATOR Active AMITRIPTYLINE HCL 100 MG TAB one at hs AMITRIPTYLINE HCL 03603281703 No Longer Active Vishal Hui MD Active TRAZODONE HCL 100 MG TAB take 1 at bedtime TRAZODONE HCL 02934240966 No Longer Active Vishal Hui MD Active VYVANSE 40 MG CAPS 1 daily, LISDEXAMFETAMINE DIMESYLATE 48356118499 No Longer Active Vishal Hui MD Active IBUPROFEN 600 MG TAB 1 po TID PRN IBUPROFEN 47324780048 No Longer Active Vishal Hui MD Active PROZAC 20 MG CAP Take one by mouth daily FLUOXETINE HCL 17670683145 No Longer Active Vishal Hui MD Active ZOFRAN 4 MG TABS 1 po q6hr PRN Nausea ONDANSETRON HCL Active Vishal Hui MD Active BACTRIM DS 800-160 MG TABS 1 pill by mouth twice daily SULFAMETHOXAZOLE-TRIMETHOPRIM 51336364982 No Longer Active Sahara Rodriguez MD PhD Active DIFLUCAN 150 MG TAB 1 tablet by mouth daily FLUCONAZOLE 24979594330 No Longer Active Vishal Hui MD Active TIZANIDINE HCL 4 MG TABS 1 po q6hr PRN Muscle Spasm/Back Pain TIZANIDINE HCL 25894872075 Active Vishal Hui MD Active CLINDAMYCIN HCL 150 MG CAPS 1 four times a day CLINDAMYCIN HCL 14797901230 No Longer Active Neeraj Collins MD Active KEFLEX 500 MG ORAL CAPS 1 cap QID by mouth CEPHALEXIN 58333409683 No Longer Active Neeraj Collins MD Active DIFLUCAN 150 MG TABS 1 pill every other day x 2 doses FLUCONAZOLE 04898809414 No Longer Active Sahara Rodriguez MD PhD Active MELATONIN 3 MG CAPS 2 po q hs MELATONIN 27222547131 No Longer Active Sahara Rodriguez MD PhD Active MULTIVITAMINS CAPS Take one by mouth daily MULTIPLE VITAMIN 62733854454 No Longer Active Sahara Rodriguez MD PhD Active BACTRIM DS 800-160 MG TAB 1 tab by mouth twice daily TRIMETHOPRIM-SULFAMETHOXAZOLE 20325861481 No Longer Active Sahara Rodriguez MD PhD Active [facility] PROBIOTIC ORAL CHEW 2 daily po PROBIOTIC PRODUCT 42206376533 No Longer Active Sahara Rodriguez MD PhD Active BACTRIM DS 800-160 MG TABS 1 po BID x 7 days SULFAMETHOXAZOLE-TRIMETHOPRIM 50752652024 No Longer Active Vishal Hui MD Active CHANTIX STARTING MONTH EARNEST 0.5 MG X 11 & 1 MG X 42 TABS 0.5mg daily for 3 days , then 0.5mg BID for 4 days, then 1mg BID VARENICLINE TARTRATE 02496628965 No Longer Active TAMARA Gray Active VERAPAMIL HCL CR 120 MG TAB CR 1 po bid VERAPAMIL HCL 04742187126 No Longer Active Vishal Hui MD Active METOPROLOL SUCCINATE 50 MG TB24 1 tablet by mouth daily METOPROLOL SUCCINATE 72324485036 No Longer Active Vishal Hui MD Active SAPHRIS 10 MG SUBL 1 tab po bid ASENAPINE MALEATE 45643416957 No Longer Active Vishal Hui MD Active LISINOPRIL 20 MG TABS 1 tab po qd LISINOPRIL 16588617775 No Longer Active Vishal Hui MD Active LATUDA 20 MG TABS Take one by mouth daily LURASIDONE HCL 39173107942 No Longer Active Vishal Hui MD Active TRAZODONE HCL 50 MG TABS 1/2 tab po qd prn for anxiety TRAZODONE HCL 68933962930 No Longer Active Vishal Hui MD Active OMEPRAZOLE 20 MG TBEC 1 po q a.m. 30min prior to first food intake OMEPRAZOLE 88602309305 Active Vishal Hui MD Active RANITIDINE HCL 150 MG CAPS 1 twice a day RANITIDINE HCL 50459567708 Active Luigi Martínez BLACK ASH BURNER OPERATOR Active LINZESS 290 MCG CAPS Take one by mouth daily LINACLOTIDE 66202143191 No Longer Active Vishal Hui MD Active SAPHRIS 5 MG SUBL 1 tab po qd ASENAPINE MALEATE 22862875155 No Longer Active Vishal Hui MD Active ZALEPLON 10 MG CAPS 1 cap po every other night ZALEPLON 90575353524 No Longer Active Vishal Hui MD Active LYRICA 50 MG CAPS 1 tab po TID PREGABALIN 08310352582 No Longer Active Vishal Hui MD Active LORATADINE 10 MG TABS 1 tab po qd LORATADINE 98298999957 No Longer Active Vishal Hui MD Active VERAPAMIL HCL ER 180 MG CR-TABS 1 tab po bid VERAPAMIL HCL 41995284099 No Longer Active Vishal Hui MD Active MIRALAX POWD 1 capfull once daily POLYETHYLENE GLYCOL 3350 62486460953 No Longer Active Vishal Hui MD Active PREDNISONE 20 MG TABS 1 tab po qd PREDNISONE 99605740818 No Longer Active Renzo Thornton DO Active LEVOFLOXACIN 500 MG TABS 1 tab po qd LEVOFLOXACIN 76234066028 No Longer Active Renzo Thornton DO Active BUSPIRONE HCL 15 MG TABS 1 tab po TID BUSPIRONE HCL 46115111284 No Longer Active Renzo Thornton DO Active BENZTROPINE MESYLATE 1 MG TABS 1 tab po qd BENZTROPINE MESYLATE 45177291706 No Longer Active Renzo Thornton DO Active ATENOLOL 25 MG TABS 1 tab po qd ATENOLOL 60289181594 No Longer Active Renzo Thornton DO Active ESCITALOPRAM OXALATE 20 MG TABS 1 tab po qd ESCITALOPRAM OXALATE 73779027782 No Longer Active Renzo Thornton DO Active ADVAIR DISKUS 250-50 MCG/DOSE AEPB 1 puff BID FLUTICASONE-SALMETEROL 81329203992 No Longer Active Renzo Thornton DO Active PREDNISONE 20 MG TAB 2 tabs daily for 3 days, 1 tab daily for 3 days, 1/2 tab daily for 2 days PREDNISONE 60668888426 No Longer Active Vishal Hui MD Active CEFDINIR 300 MG CAPS by mouth twice a day CEFDINIR 83752710940 No Longer Active Vishal Hui MD Active LANSOPRAZOLE 30 MG CPDR 1 cap po qd LANSOPRAZOLE 45002108910 No Longer Active Vishal Hui MD Active BACLOFEN 20 MG TABS 1 tab po tid BACLOFEN 22408042192 No Longer Active Vishal Hui MD Active ADVAIR DISKUS 250-50 MCG/DOSE AEPB 1 puff BID ADVAIR DISKUS 250-50 MCG/DOSE AEPB FLUTICASONE-SALMETEROL Inactive ESCITALOPRAM OXALATE 20 MG TABS 1 tab po qd ESCITALOPRAM OXALATE 20 MG TABS 700310 ESCITALOPRAM OXALATE Inactive ATENOLOL 25 MG TABS 1 tab po qd ATENOLOL 25 MG TABS 856233 ATENOLOL Inactive BENZTROPINE MESYLATE 1 MG TABS 1 tab po qd BENZTROPINE MESYLATE 1 MG TABS 715653 BENZTROPINE MESYLATE Inactive BUSPIRONE HCL 15 MG TABS 1 tab po TID BUSPIRONE HCL 15 MG TABS 137137 BUSPIRONE HCL Inactive LEVOFLOXACIN 500 MG TABS 1 tab po qd LEVOFLOXACIN 500 MG TABS 041710 LEVOFLOXACIN Inactive PREDNISONE 20 MG TABS 1 tab po qd PREDNISONE 20 MG TABS 282387 PREDNISONE Inactive MIRALAX POWD 1 capfull once daily MIRALAX POWD 175694 POLYETHYLENE GLYCOL 3350 Inactive VERAPAMIL HCL ER 180 MG CR-TABS 1 tab po bid VERAPAMIL HCL ER 180 MG CR-TABS VERAPAMIL HCL Inactive LORATADINE 10 MG TABS 1 tab po qd LORATADINE 10 MG TABS 743146 LORATADINE Inactive LYRICA 50 MG CAPS 1 tab po TID LYRICA 50 MG CAPS PREGABALIN Inactive ZALEPLON 10 MG CAPS 1 cap po every other night ZALEPLON 10 MG CAPS 168124 ZALEPLON Inactive SAPHRIS 5 MG SUBL 1 tab po qd SAPHRIS 5 MG SUBL ASENAPINE MALEATE Inactive TRAZODONE HCL 50 MG TABS 1/2 tab po qd prn for anxiety TRAZODONE HCL 50 MG TABS 018958 TRAZODONE HCL Inactive LATUDA 20 MG TABS Take one by mouth daily LATUDA 20 MG TABS LURASIDONE HCL Inactive LISINOPRIL 20 MG TABS 1 tab po qd LISINOPRIL 20 MG TABS 507373 LISINOPRIL Inactive SAPHRIS 10 MG SUBL 1 [...] twice daily BACTRIM DS 800-160 MG TAB 320078 TRIMETHOPRIM-SULFAMETHOXAZOLE Inactive MULTIVITAMINS CAPS Take one by mouth daily MULTIVITAMINS CAPS MULTIPLE VITAMIN Inactive MELATONIN 3 MG CAPS 2 po q hs MELATONIN 3 MG CAPS 490440 MELATONIN Inactive KEFLEX 500 MG ORAL CAPS 1 cap QID by mouth KEFLEX 500 MG ORAL CAPS 837817 CEPHALEXIN Inactive CLINDAMYCIN HCL 150 MG CAPS 1 four times a day CLINDAMYCIN HCL 150 MG CAPS 19740326 CLINDAMYCIN HCL Inactive DIFLUCAN 150 MG TAB 1 tablet by mouth daily DIFLUCAN 150 MG TAB 350574 FLUCONAZOLE Inactive PROZAC 20 MG CAP Take one by mouth daily PROZAC 20 MG CAP 292009 FLUOXETINE HCL Inactive IBUPROFEN 600 MG TAB 1 po TID PRN IBUPROFEN 600 MG TAB 529819 IBUPROFEN Inactive VYVANSE 40 MG CAPS 1 daily, VYVANSE 40 MG CAPS LISDEXAMFETAMINE DIMESYLATE Inactive TRAZODONE HCL 100 MG TAB take 1 at bedtime TRAZODONE HCL 100 MG TAB 606359 TRAZODONE HCL Inactive AMITRIPTYLINE HCL 100 MG TAB one at hs AMITRIPTYLINE HCL 100 MG TAB 993174 AMITRIPTYLINE HCL Inactive AMLODIPINE BESYLATE 5 MG TABS 1 tablet by mouth daily AMLODIPINE BESYLATE 5 MG TABS 084599 AMLODIPINE BESYLATE Inactive LATUDA 80 MG TABS Take one by mouth daily LATUDA 80 MG TABS LURASIDONE HCL Inactive SAPHRIS 5 MG SUBL 1 po bid SAPHRIS 5 MG SUBL ASENAPINE MALEATE Inactive PREDNISONE 20 MG TAB 2 tabs daily for 4 days, 1 tab daily for 4 days, 1/2 tab daily for 4 days PREDNISONE 20 MG TAB 132162 PREDNISONE Inactive AMBIEN 5 MG ORAL TABS 1 tab at bedtime AMBIEN 5 MG ORAL TABS 096600 ZOLPIDEM TARTRATE Inactive PROZAC 20 MG ORAL CAPS 1 tab daily PROZAC 20 MG ORAL CAPS 527271 FLUOXETINE HCL Inactive ABILIFY 15 MG ORAL TABS 1 tab daily ABILIFY 15 MG ORAL TABS 597161 ARIPIPRAZOLE Inactive METOPROLOL TARTRATE 50 MG TAB 1 po bid METOPROLOL TARTRATE 50 MG TAB 746288 METOPROLOL TARTRATE Inactive TRAMADOL HCL 50 MG TABS 1-2 po TID PRN Pain TRAMADOL HCL 50 MG TABS 811594 TRAMADOL HCL Inactive PIROXICAM 20 MG CAPS 1 cap po qd PRN Pain PIROXICAM 20 MG CAPS 259331 PIROXICAM Inactive MINIPRESS 2 MG CAPS 4 cap po at night MINIPRESS 2 MG CAPS 379289 PRAZOSIN HCL Inactive MIRALAX PACK 1 po qd PRN Constipation MIRALAX PACK 293344 POLYETHYLENE GLYCOL 3350 Inactive METOPROLOL TARTRATE 25 MG ORAL TABS 1/2 tablet twice daily for heart rate and blood pressure METOPROLOL TARTRATE 25 MG ORAL TABS 196824 METOPROLOL TARTRATE Inactive VALIUM 5 MG TAB Take 1-2 tablets daily VALIUM 5 MG TAB 312486 DIAZEPAM Inactive FLAGYL 500 MG TAB 1 tablet by mouth bid FLAGYL 500 MG TAB 004143 METRONIDAZOLE Inactive DICLOFENAC POTASSIUM TABS Take 1 tablet twice a day (pt. is not sure of the dose.) DICLOFENAC POTASSIUM TABS DICLOFENAC POTASSIUM TABS Inactive ZITHROMAX Z-EARNEST 250 MG TABS 2 today and then 1 daily for 4 days ZITHROMAX Z-EARNEST 250 MG TABS 7443819 AZITHROMYCIN Inactive PREDNISONE 20 MG TABS 2 daily for 5 days then 1 daily for 5 days PREDNISONE 20 MG TABS 200041 PREDNISONE Inactive PROAIR HFA 108 (90 BASE) MCG/ACT AERS 2 puffs four times a day as needed 2015 PROAIR HFA 108 (90 BASE) MCG/ACT AERS ALBUTEROL SULFATE Inactive HYDROCODONE-ACETAMINOPHEN 5-325 MG TABS 1 to 2 four times a day as needed for pain use until can be seen by specialist HYDROCODONE- ACETAMINOPHEN 5-325 MG TABS 328412 HYDROCODONE-ACETAMINOPHEN Inactive TESSALON PERLES 100 MG CAP 1 to 2 tablets by mouth 3 times daily as needed for cough TESSALON PERLES 100 MG CAP 254789 BENZONATATE Inactive CHANTIX STARTING MONTH EARNEST 0.5 [...] Pain 2015 DICLOFENAC SODIUM 50 MG TBEC 732111 DICLOFENAC SODIUM Inactive TOPAMAX 50 MG ORAL TABS 1 tab twice daily TOPAMAX 50 MG ORAL TABS 922493 TOPIRAMATE Inactive VIIBRYD 10 MG ORAL TABS Take 1 tablet once a day VIIBRYD 10 MG ORAL TABS VILAZODONE HCL Inactive LEVOFLOXACIN 500 MG ORAL TABS po daily LEVOFLOXACIN 500 MG ORAL TABS 149080 LEVOFLOXACIN Inactive METHYLPREDNISOLONE 4 MG ORAL TABS po daily METHYLPREDNISOLONE 4 MG ORAL TABS 667224 METHYLPREDNISOLONE Inactive OXYCODONE HCL ER 10 MG ORAL T12A 1/2 tab by mouth every 4 hours prn OXYCODONE HCL ER 10 MG ORAL T12A OXYCODONE HCL Inactive FLAGYL 500 MG TAB 1 tablet by mouth bid FLAGYL 500 MG TAB 496387 METRONIDAZOLE Inactive MONISTAT 7 COMBO PACK WOODROW 100 & 2 MG-% (9GM) VAG KIT 1 applicatorful per vagina q pm x 7 MONISTAT 7 COMBO PACK WOODROW 100 & 2 MG-% (9GM) VAG KIT MICONAZOLE NITRATE Inactive CEFDINIR 300 MG CAPS by mouth twice a day CEFDINIR 300 MG CAPS 872775 CEFDINIR Inactive PREDNISONE 20 MG TAB 2 tabs daily for 3 days, 1 tab daily for 3 days, 1/2 tab daily for 2 days PREDNISONE 20 MG TAB 606947 PREDNISONE Inactive BACTRIM DS 800-160 MG TABS 1 po BID x 7 days BACTRIM DS 800-160 MG TABS 19820521 SULFAMETHOXAZOLE-TRIMETHOPRIM Inactive DIFLUCAN 150 MG TABS 1 pill every other day x 2 doses DIFLUCAN 150 MG TABS 006685 FLUCONAZOLE Inactive BACTRIM DS 800-160 MG TABS 1 pill by mouth twice daily BACTRIM DS 800-160 MG TABS 608189 SULFAMETHOXAZOLE-TRIMETHOPRIM Inactive KEFLEX 500 MG CAP 1 po TID x 10 days KEFLEX 500 MG CAP 313987 CEPHALEXIN Inactive Advance Directives Directive Description Start [...] % 11.6-14.8 platelet count 394 10^3/MM^3 10*3/mm3 425-712 8684/12/22 erythrocyte (RBC) count 4.19 10^6/MM^3 10*6/mm3 4.04-5.48 [...] 379 10^3/MM^3 10*3/mm3 142-424 Lab Report: Chlamydia/GC APTIMA/[id number] - Lab chlamydia DNA probe NOT DETECTED NOT DETECTED Lab Report: Chlamydia/GC APTIMA/[id number] - Microbiology Neisseria gonorrhoeae DNA probe NOT DETECTED NOT DETECTED Lab Report: Comp. Metabolic Panel - Chemistry sodium, serum 139 mmol/L 051-330 8831/01/11 carbon dioxide, venous blood 26.6 mmol/L 21.0-32.0 potassium, serum 4.1 mmol/L 3.5-5.2 chloride, serum 100 mmol/L 98-107 blood glucose 86 mg/dL 65-110 urea nitrogen, blood 16 mg/dL 7-18 creatinine, serum 1.00 mg/dL 0.55-1.30 alanine aminotransferase (SGPT), serum 48 U/L -78 aspartate aminotransferase (SGOT), serum 17 U/L 15-37 calcium, serum 9.1 mg/dL 8.5-10.1 bilirubin, serum, total 0.40 mg/dL 0.00-1.00 sodium, serum 142 mmol/L 008-926 3186/06/08 carbon dioxide, venous blood 27.6 mmol/L 21.0-32.0 potassium, serum 4.0 mmol/L 3.5-5.2 chloride, serum 105 mmol/L 98-107 blood glucose 95 mg/dL 65-110 urea nitrogen, blood 8 mg/dL 7-18 creatinine, serum 0.75 mg/dL 0.55-1.30 alanine aminotransferase (SGPT), serum 49 U/L aspartate aminotransferase (SGOT), serum 28 U/L 15-37 calcium, serum 9.4 mg/dL 8.5-10.1 bilirubin, serum, total 0.30 mg/dL 0.00-1.00 sodium, serum 140 mmol/L 578-583 5708/08/08 carbon dioxide, venous blood 33.7 mmol/L 21.0-32.0 potassium, serum 5.0 mmol/L 3.5-5.2 chloride, serum 103 mmol/L 98-107 blood glucose 80 mg/dL 65-110 urea nitrogen, blood 13 mg/dL 7-18 creatinine, serum 0.88 mg/dL 0.55-1.30 alanine aminotransferase (SGPT), serum 54 U/L aspartate aminotransferase (SGOT), serum 29 U/L 15-37 calcium, serum 9.7 mg/dL 8.5-10.1 bilirubin, serum, total 0.30 mg/dL 0.00-1.00 sodium, serum 139 mmol/L 654-636 9128/12/22 creatinine, serum 0.90 mg/dL 0.55-1.30 alanine aminotransferase [...] Rate - Chemistry sodium, serum 139 mmol/L 820-163 5767/12/11 carbon dioxide, venous blood 25.4 mmol/L 21.0-32.0 [...] mg/dL Encounters Code Encounter Date Provider Facility CPT-90863 Level 3 Est. Patient 15:07:06 [employer] Neeraj Collins MD [facility] CPT-71314 Level 4 Est. Patient 14:45:00 [employer] Ahmet Carbajal MD [facility] CPT-48733 Level 3 Est. Patient 13:59:59 CDT Luigi Martínez APRN [facility] CPT-25963 Level 3 Est. Patient 18:18:53 CDT Neeraj Collins MD [facility] CPT-86792 Level 3 Est. Patient 15:50:44 CDT Vishal Hui MD [facility] CPT-36624 Level 3 Est. Patient 11:36:17 CDT Ahmet Carbajal MD [facility] CPT-31630 Level 3 Est. Patient 13:29:16 CDT Vishal Hui MD [facility] CPT-90233 Level 3 Est. Patient 14:27:52 CDT Neeraj Collins MD [facility] CPT-00446 Level 3 Est. Patient 08:56:03 CDT Pacomarnijanee Lopezephraim [facility] CPT-87675 Level 4 Est. Patient 12:11:48 CDT Fabiolaniall Johnson [facility] CPT-34061 Level 3 New Patient 16:53:37 CDT Albert Caldera MD [facility] CPT-07987 Level 3 Est. Patient 11:25:49 CDT Renzo Thornton DO [facility] CPT-54170 Level 3 Est. Patient 15:22:01 CDT Ahmet Carbajal MD [facility] CPT-29775 Level 4 Est. Patient 09:00:51 [employer] Vishal Hui MD [facility] CPT-26315 Level 3 Est. Patient 11:37:33 [employer] Vishal Hui MD [facility] CPT-90163 Level 3 Est. Patient 08:41:09 [employer] Vsihal Hui MD [facility] CPT-11029 Level 4 Est. Patient 10:19:35 [employer] Vishal Hui MD [facility] CPT-81460 Level 3 Est. Patient 13:35:45 CDT Vishal Hui MD [facility] CPT-40125 Level 4 Est. Patient 10:08:37 CDT Vishal Hui MD [facility] CPT-67281 Level 3 Est. Patient 11:22:10 CDT Vishal Hui MD [facility] CPT-12946 Level 3 Est. Patient 11:03:32 CDT Sahara Rodriguez MD PhD [facility] CPT-27497 Level 3 Est. Patient 09:41:35 CDT Vishal Hui MD [facility] CPT-79087 Level 3 Est. Patient 12:00:41 CDT Neeraj Collins MD [facility] CPT-18874 Level 3 Est. Patient 09:16:24 CDT Vishal Hui MD [facility] CPT-83232 Level 4 Est. Patient 13:59:09 CDT Neeraj Collins MD [facility] CPT-76455 Level 3 Est. Patient 15:19:43 CDT Renzo Thornton [facility] CPT-63367 Level 3 Est. Patient 18:10:26 CDT Sahara Rodriguez MD PhD [facility] CPT-55701 Level 3 Est. Patient 14:49:50 CDT Vishal Hui MD [facility] CPT-14646 Level 4 Est. Patient 18:41:46 CDT Neeraj Collins MD [facility] CPT-03228 Level 4 Est. Patient 09:18:38 [employer] Vishal Hui MD [facility] CPT-91343 Level 3 Est. Patient 14:43:55 [employer] Vishal Hui MD [facility] CPT-16228 Level 3 Est. Patient 15:26:33 [employer] Sahara Rodriguez MD PhD [facility] CPT-09379 Level 3 Est. Patient 10:32:14 [employer] Vishal Hui MD [facility] CPT-85448 Level 3 Est. Patient 15:12:52 [employer] Vishal Hui MD [facility] CPT-69026 Level 4 Est. Patient 09:19:27 CDT Vishal Hui MD [facility] CPT-07186 Level 3 Est. Patient 15:53:00 CDT Renzo Thornton [facility] CPT-11172 Level 3 Est. Patient 15:50:30 CDT Renzo Thornton [facility] CPT-59849 Level 3 Est. Patient 16:55:24 CDT Vishal Hui MD [facility] Procedures Code Procedure Name Date Entry Date Standard Description CPT-74530 Abx/Therapy Injection 17:34:30 [employer] CPT-44211 Nexplanon Removal with Reinsertion 14:09:32 CDT CPT-J7307 Nexplanon (Implant) 14:09:32 CDT CPT-OV Office Visit 14:09:32 CDT CPT-17829 UA w micro - LAB USE ONLY 16:21:13 CDT CPT-39125 Wet Mount - LAB USE ONLY 16:21:13 CDT CPT-99502 First Vx - Ix admin for Medicare patients 14:37:47 CDT CPT-93231 Fluzone Preservative Free Intramuscular Suspension 14:37 :47 CDT CPT-87542 Abx/Therapy Injection 13:54:22 CDT CPT-79565 Abx/Therapy Injection 08:47:09 CDT CPT-17496 Abx/Therapy Injection 13:29:56 CDT CPT-76071 Abx/Therapy Injection 08:36:16 CDT CPT-99294 Wet Mount - LAB USE ONLY 17:44:58 CDT CPT-30769 UA w micro - LAB USE ONLY 17:44:58 CDT CPT-51678 CMP - LAB USE ONLY 17:44:58 CDT CPT-40056 Venipuncture Draw Fee 17:44:58 CDT CPT-58519 Cervical Min 4V - XRAY USE ONLY 09:01:40 CDT CPT-17961 Chest 2V Frontal and Lat - XRAY USE ONLY 11:06:31 CDT CPT-19966 EKG Trac and Interp - XRAY USE ONLY 11:31:43 CDT 08/26 CPT-J3420 Vitamin B12 1000mcg (Cyanocobalamin) 08:10:26 [employer] 04/12 CPT-65848 Abx/Therapy Injection 08:10:26 [employer] CPT-G0438 Initial Annual Wellness Exam 19:01:01 [employer] CPT-J3420 Vitamin B12 1000mcg (Cyanocobalamin) 16:57:46 CDT 08/14 CPT-27041 Recombivax HB Injection Suspension 5 MCG/0.5ML 08:37:50 [employer] CPT-11103 Immunization Single Admin 08:37:50 [employer] CPT-J3420 Vitamin B12 1000mcg (Cyanocobalamin) 08:32:16 [employer] 03/11 CPT-96678 Abx/Therapy Injection 08:32:16 [employer] CPT-56727 Chest 2V Frontal and Lat 11:46:38 [employer] CPT-45160 Venipuncture Draw Fee 09:12:45 [employer] CPT-J3420 Vitamin B12 1000mcg (Cyanocobalamin) 08:50:15 [employer] 02/08 CPT-08149 Abx/Therapy Injection 08:50:15 [employer] CPT-Cryo Cryotherapy 10:19:35 [employer] CPT-000 Give Appropriate Flu Vaccine 09:22:16 CDT CPT-J3420 Vitamin B12 1000mcg (Cyanocobalamin) 19:08:57 CDT 01/11 CPT-07235 Abx/Therapy Injection 19:08:57 CDT CPT-J3420 Vitamin B12 1000mcg (Cyanocobalamin) 08:19:08 CDT 12/11 CPT-94432 Abx/Therapy Injection 08:19:08 CDT CPT-J3420 Vitamin B12 1000mcg (Cyanocobalamin) 14:48:00 CDT 11/09 CPT-17947 Abx/Therapy Injection 14:47:59 CDT CPT-J3420 Vitamin B12 1000mcg (Cyanocobalamin) 08:34:04 CDT 10/09 CPT-22827 Abx/Therapy Injection 08:34:04 CDT CPT-J3420 Vitamin B12 1000mcg (Cyanocobalamin) 09:18:52 CDT 09/11 CPT-12290 Abx/Therapy Injection 09:18:52 CDT CPT-J3420 Vitamin B12 1000mcg (Cyanocobalamin) 08:35:44 CDT 09/04 CPT-93603 Abx/Therapy Injection 08:35:44 CDT CPT-65448 Immunization Single Admin 11:07:16 CDT CPT-41113 Hepatitis B adult IM 11:07:16 CDT CPT-J3420 Vitamin B12 1000mcg (Cyanocobalamin) 11:00:49 CDT 08/28 CPT-J1040 Depo Medrol 80 mg (Methyl Prednisolone Acetate) 11:00: 49 CDT CPT-38745 Abx/Therapy Injection 11:00:49 CDT CPT-J1040 Depo Medrol 80 mg (Methyl Prednisolone Acetate) 09:16: 23 CDT CPT-J3420 Vitamin B12 1000mcg (Cyanocobalamin) 08:27:05 CDT 08/20 CPT-62130 Abx/Therapy Injection 08:27:05 CDT CPT-09450 Recombivax HB Injection Suspension 5 MCG/0.5ML 10:00:41 CDT CPT-22429 Administration single or combination vaccine inc oral 10 :00:41 CDT CPT-83680 Sono transvag pelvis non OB uterus ovaries cervix 16:36: 57 CDT CPT-98198 LS spine comp w obliq 09:50:55 [employer] CPT-01352 Abd compl w upright 09:50:55 [employer] CPT-J1100 Decadron 4mg (Dexamethasone) 15:51:24 [employer] CPT-J1030 Depo Medrol 40 mg (Methyl Prednisolone Acetate) 15:51: 24 [employer] CPT-59732 Abx/Therapy Injection 15:51:24 [employer] CPT-J1100 Decadron 4mg (Dexamethasone) 15:26:33 [employer] CPT-J1030 Depo Medrol 40 mg (Methyl Prednisolone Acetate) 15:26: 33 [employer] CPT-71004 Sono retroperitoneal complete kidneys and bladder 17:15: 30 CDT CPT-45521 Abd compl w upright 16:09:25 CDT CPT-J1100 Decadron 8mg (Dexamethasone) 17:07:57 CDT CPT-53614 Abx/Therapy Injection 17:07:57 CDT CPT-J1100 Decadron 8mg (Dexamethasone) 16:55:24 CDT CPT-91364 Chest 2V Frontal and Lat 16:32:44 CDT
--- OUTSIDE RECORDS SUMMARY | 2016-11-04 18:48 | XMS REPORT | Clinical Summary ---
Author Author Admin, Dereck Organization [facility] [place] Address Unknown Phone Unavailable Allergies, Adverse Reactions, [...] health care facility Vaginitis 616.10 Resolved Vishal Hiu MD Vaginitis and vulvovaginitis, unspecified Mrsa infection [...] Morbid obesity 278.01 Active Juliet Kimbrough SENIOR SOFTWARE QUALITY ENGINEER Morbid obesity 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 Active Juliet Kimbrough SENIOR SOFTWARE QUALITY ENGINEER Dependence on other enabling machines and [...] breath Nocturnal hypoxia 799.02 Active Fabiola Johnson SENIOR SOFTWARE QUALITY ENGINEER Hypoxemia Neck pain 723.1 Resolved Vishal Hui [...] TABS 1/2-1 tab TID PRN TRAMADOL HCL 48429023807 Active Lynda Ninoska DISTRIBUTOR OF DIRECTORIES Active PROAIR HFA 108 (90 BASE) MCG/ACT AERS 2 puffs four times a day as needed 2015 ALBUTEROL SULFATE 80169718506 Active Amhet Carbajal MD Active EQ NICOTINE 21 MG/24HR TRANS PT24 Apply daily to stop smoking NICOTINE 68455669117 Active Ahmet Carbajal MD Active BACTRIM DS 800-160 MG TABS 1 twice a day SULFAMETHOXAZOLE- TRIMETHOPRIM 67678877819 Active Ahmet Carbajal MD Active ADVAIR DISKUS 250-50 MCG/DOSE INH AEPB 1 puff twice a day for asthma FLUTICASONE-SALMETEROL 07672391777 Active Ahmet Carbajal MD Active MONISTAT 7 COMBO PACK WOODROW 100 & 2 MG-% (9GM) VAG KIT 1 applicatorful per vagina q pm x 7 MICONAZOLE NITRATE 11094428328 No Longer Active Ahmet Carbajal MD Active FLAGYL 500 MG TAB 1 tablet by mouth bid METRONIDAZOLE 01061277565 No Longer Active Ahmet Carbajal MD Active OXYCODONE HCL ER 10 MG ORAL T12A 1/2 tab by mouth every 4 hours prn OXYCODONE HCL 85382366220 No Longer Active Ahmet Carbajal MD Active METHYLPREDNISOLONE 4 MG ORAL TABS po daily METHYLPREDNISOLONE 86174562915 No Longer Active Ahmet Carbajal MD Active LEVOFLOXACIN 500 MG ORAL TABS po daily LEVOFLOXACIN 49586863885 No Longer Active Ahmet Carbajal MD Active VIIBRYD 10 MG ORAL TABS Take 1 tablet once a day VILAZODONE HCL 63485101782 No Longer Active Ahmet Carbajal MD Active TOPAMAX 50 MG ORAL TABS 1 tab twice daily TOPIRAMATE 50022515213 No Longer Active Ahmet Carbajal MD Active DICLOFENAC SODIUM 50 MG TBEC 1 tablet by mouth four times daily PRN Pain 2015 DICLOFENAC SODIUM 51630036786 No Longer Active Ahmet Carbajal MD Active ADZENYS XR-ODT 6.3 MG ORAL TBED 1 tab po daily for ADHD AMPHETAMINE 38884436920 No Longer Active Ahmet Carbajal MD Active CHANTIX 1 MG TABS 1 twice a day to help quit smoking VARENICLINE TARTRATE 61576069786 No Longer Active Dipika Burgos MD Active CHANTIX STARTING MONTH EARNEST 0.5 MG X 11 & 1 MG X 42 TABS take as directed 2015 VARENICLINE TARTRATE 60686251110 No Longer Active Dipika Burgos MD Active TESSALON PERLES 100 MG CAP 1 to 2 tablets by mouth 3 times daily as needed for cough BENZONATATE 73872189599 No Longer Active Luigi Martínez SENIOR SOFTWARE QUALITY ENGINEER Active ABILIFCielo MAINTENA 400 MG IM SUSR 400mg injection every 26 days ARIPIPRAZOLE 61948542534 Active Silvia Casey DISTRIBUTOR OF DIRECTORIES Active IMITREX 50 MG ORAL TABS 0.5 po x 1 PRN Headache. May repeat dose x 1 in 2 hours if needed SUMATRIPTAN SUCCINATE 32525472370 Active Vishal Hui MD Active HYDROCODONE-ACETAMINOPHEN 5-325 MG TABS 1 to 2 four times a day as needed for pain use until can be seen by specialist HYDROCODONE- ACETAMINOPHEN 41598764328 No Longer Active Vishal Hui MD Active PROAIR HFA 108 (90 BASE) MCG/ACT AERS 2 puffs four times a day as needed 2015 ALBUTEROL SULFATE 15877683025 No Longer Active Vishal Hui MD Active PREDNISONE 20 MG TABS 2 daily for 5 days then 1 daily for 5 days PREDNISONE 96902266234 No Longer Active Vishal Hui MD Active ZITHROMAX Z-EARNEST 250 MG TABS 2 today and then 1 daily for 4 days AZITHROMYCIN 93272477453 No Longer Active Vishal Hui MD Active DICLOFENAC POTASSIUM TABS Take 1 tablet twice a day (pt. is not sure of the dose.) DICLOFENAC POTASSIUM TABS 63073047680 No Longer Active Vishal Hui MD Active VERAPAMIL HCL ER 120 MG ORAL CR-TABS Take 1 tablet by mouth twice a day. VERAPAMIL HCL 46936411608 Active Vishal Hui MD Active FLAGYL 500 MG TAB 1 tablet by mouth bid METRONIDAZOLE 22171616726 No Longer Active Vishal Hui MD Active FLUTICASONE PROPIONATE 50 MCG/ACT SUSP 2 sprays each nostril daily before bed. FLUTICASONE PROPIONATE 10177251266 Active Fabiola Johnson APRN Active BENADRYL 25 MG CAP 4 po at bedtime for insomnia DIPHENHYDRAMINE HCL 39276296962 Active Fabiola Johnson APRN Active KLONOPIN 1 MG ORAL TABS 1 tab po TID CLONAZEPAM 72634076267 Active Fabiola Johnson APRN Active VALIUM 5 MG TAB Take 1-2 tablets daily DIAZEPAM 29598296924 No Longer Active Fabiola Johnson APRN Active METOPROLOL TARTRATE 25 MG ORAL TABS 1/2 tablet twice daily for heart rate and blood pressure METOPROLOL TARTRATE 43003168934 No Longer Active Fabiola Johnson APRN Active MIRALAX ORAL POWD 17GMS DAILY IN WATER POLYETHYLENE GLYCOL 3350 14668087589 Active Vishal Hui MD Active MIRALAX PACK 1 po qd PRN Constipation POLYETHYLENE GLYCOL 3350 54003082005 No Longer Active Ahmet Carbajal MD Active MINIPRESS 2 MG CAPS 4 cap po at night PRAZOSIN HCL 68780723001 No Longer Active Ahmet Carbajal MD Active PIROXICAM 20 MG CAPS 1 cap po qd PRN Pain PIROXICAM 75971805183 No Longer Active Ahmet Carbajal MD Active TRAMADOL HCL 50 MG TABS 1-2 po TID PRN Pain TRAMADOL HCL 96753216994 No Longer Active Ahmet Carbajal MD Active METOPROLOL TARTRATE 50 MG TAB 1 po bid METOPROLOL TARTRATE 55916461582 No Longer Active Ahmet Carbajal MD Active ABILIFY 15 MG ORAL TABS 1 tab daily ARIPIPRAZOLE 24227659139 No Longer Active Ahmet Carbajal MD Active PROZAC 20 MG ORAL CAPS 1 tab daily FLUOXETINE HCL 22112787101 No Longer Active Ahmet Carbajal MD Active AMBIEN 5 MG ORAL TABS 1 tab at bedtime ZOLPIDEM TARTRATE 47590019588 No Longer Active Ahmet Carbajal MD Active PREDNISONE 20 MG TAB 2 tabs daily for 4 days, 1 tab daily for 4 days, 1/2 tab daily for 4 days PREDNISONE 24350101529 No Longer Active Ahmet Carbajal MD Active KEFLEX 500 MG CAP 1 po TID x 10 days CEPHALEXIN 24582743824 No Longer Active Vishal Hui MD Active SAPHRIS 5 MG SUBL 1 po bid ASENAPINE MALEATE 34350211084 No Longer Active Jillina Mauricio SENIOR SOFTWARE QUALITY ENGINEER Active LATUDA 80 MG TABS Take one by mouth daily LURASIDONE HCL 50967494178 No Longer Active Jillina Frazell SENIOR SOFTWARE QUALITY ENGINEER Active AMLODIPINE BESYLATE 5 MG TABS 1 tablet by mouth daily AMLODIPINE BESYLATE 45308084223 No Longer Active Jillina Frazell SENIOR SOFTWARE QUALITY ENGINEER Active AMITRIPTYLINE HCL 100 MG TAB one at hs AMITRIPTYLINE HCL 36431883553 No Longer Active Vishal Hui MD Active TRAZODONE HCL 100 MG TAB take 1 at bedtime TRAZODONE HCL 57271256101 No Longer Active Vishal Hui MD Active VYVANSE 40 MG CAPS 1 daily, LISDEXAMFETAMINE DIMESYLATE 14345706707 No Longer Active Vishal Hui MD Active IBUPROFEN 600 MG TAB 1 po TID PRN IBUPROFEN 61563864776 No Longer Active Vishal Hui MD Active PROZAC 20 MG CAP Take one by mouth daily FLUOXETINE HCL 64260759152 No Longer Active Vishal Hui MD Active ZOFRAN 4 MG TABS 1 po q6hr PRN Nausea ONDANSETRON HCL Active Vishal Hui MD Active BACTRIM DS 800-160 MG TABS 1 pill by mouth twice daily SULFAMETHOXAZOLE-TRIMETHOPRIM 62386960957 No Longer Active Sahara Rodriguez MD PhD Active DIFLUCAN 150 MG TAB 1 tablet by mouth daily FLUCONAZOLE 85072918775 No Longer Active Vishal Hui MD Active TIZANIDINE HCL 4 MG TABS 1 po q6hr PRN Muscle Spasm/Back Pain TIZANIDINE HCL 80307199651 Active Vishal Hui MD Active CLINDAMYCIN HCL 150 MG CAPS 1 four times a day CLINDAMYCIN HCL 71512256707 No Longer Active Neeraj Collins MD Active KEFLEX 500 MG ORAL CAPS 1 cap QID by mouth CEPHALEXIN 24046342353 No Longer Active Neeraj Collins MD Active DIFLUCAN 150 MG TABS 1 pill every other day x 2 doses FLUCONAZOLE 42182003734 No Longer Active Sahara Rodriguez MD PhD Active MELATONIN 3 MG CAPS 2 po q hs MELATONIN 70175478555 No Longer Active Sahara Rodriguez MD PhD Active MULTIVITAMINS CAPS Take one by mouth daily MULTIPLE VITAMIN 44298221843 No Longer Active Sahara Rodriguez MD PhD Active BACTRIM DS 800-160 MG TAB 1 tab by mouth twice daily TRIMETHOPRIM-SULFAMETHOXAZOLE 43394015638 No Longer Active Sahara Rodriguez MD PhD Active [facility] PROBIOTIC ORAL CHEW 2 daily po PROBIOTIC PRODUCT 44612052082 No Longer Active Sahara Rodriguez MD PhD Active BACTRIM DS 800-160 MG TABS 1 po BID x 7 days SULFAMETHOXAZOLE-TRIMETHOPRIM 28584106704 No Longer Active Vishal Hui MD Active CHANTIX STARTING MONTH EARNEST 0.5 MG X 11 & 1 MG X 42 TABS 0.5mg daily for 3 days , then 0.5mg BID for 4 days, then 1mg BID VARENICLINE TARTRATE 99862016281 No Longer Active TAMARA Gray Active VERAPAMIL HCL CR 120 MG TAB CR 1 po bid VERAPAMIL HCL 99198413896 No Longer Active Vishal Hui MD Active METOPROLOL SUCCINATE 50 MG TB24 1 tablet by mouth daily METOPROLOL SUCCINATE 73794437961 No Longer Active Vishal Hui MD Active SAPHRIS 10 MG SUBL 1 tab po bid ASENAPINE MALEATE 88161129993 No Longer Active Vishal Hui MD Active LISINOPRIL 20 MG TABS 1 tab po qd LISINOPRIL 09410883912 No Longer Active Vishal Hui MD Active LATUDA 20 MG TABS Take one by mouth daily LURASIDONE HCL 34084445022 No Longer Active Vishal Hui MD Active TRAZODONE HCL 50 MG TABS 1/2 tab po qd prn for anxiety TRAZODONE HCL 91093696808 No Longer Active Vishal Hui MD Active OMEPRAZOLE 20 MG TBEC 1 po q a.m. 30min prior to first food intake OMEPRAZOLE 88643232198 Active Vishal Hui MD Active RANITIDINE HCL 150 MG CAPS 1 twice a day RANITIDINE HCL 41336002502 Active Luigi Martínez APRN Active LINZESS 290 MCG CAPS Take one by mouth daily LINACLOTIDE 35196284346 No Longer Active Vishal Hui MD Active SAPHRIS 5 MG SUBL 1 tab po qd ASENAPINE MALEATE 14613222704 No Longer Active Vishal Hui MD Active ZALEPLON 10 MG CAPS 1 cap po every other night ZALEPLON 92585564801 No Longer Active Vishal Hui MD Active LYRICA 50 MG CAPS 1 tab po TID PREGABALIN 90235428235 No Longer Active Vishal Hui MD Active LORATADINE 10 MG TABS 1 tab po qd LORATADINE 65045039500 No Longer Active Vishal Hui MD Active VERAPAMIL HCL ER 180 MG CR-TABS 1 tab po bid VERAPAMIL HCL 16285831622 No Longer Active Vishal Hui MD Active MIRALAX POWD 1 capfull once daily POLYETHYLENE GLYCOL 3350 46496974344 No Longer Active Vishal Hui MD Active PREDNISONE 20 MG TABS 1 tab po qd PREDNISONE 84693453175 No Longer Active Renzo Thornton DO Active LEVOFLOXACIN 500 MG TABS 1 tab po qd LEVOFLOXACIN 73294515075 No Longer Active Renzo Thornton DO Active BUSPIRONE HCL 15 MG TABS 1 tab po TID BUSPIRONE HCL 19194538552 No Longer Active Renzo Thornton DO Active BENZTROPINE MESYLATE 1 MG TABS 1 tab po qd BENZTROPINE MESYLATE 09992567263 No Longer Active Renzo Thornton DO Active ATENOLOL 25 MG TABS 1 tab po qd ATENOLOL 99197467998 No Longer Active Renzo Thornton DO Active ESCITALOPRAM OXALATE 20 MG TABS 1 tab po qd ESCITALOPRAM OXALATE 12356260886 No Longer Active Renzo Thornton DO Active ADVAIR DISKUS 250-50 MCG/DOSE AEPB 1 puff BID FLUTICASONE-SALMETEROL 41497086885 No Longer Active Renzo Thornton DO Active PREDNISONE 20 MG TAB 2 tabs daily for 3 days, 1 tab daily for 3 days, 1/2 tab daily for 2 days PREDNISONE 92571630701 No Longer Active Vishal Hui MD Active CEFDINIR 300 MG CAPS by mouth twice a day CEFDINIR 22981239245 No Longer Active Vishal Hui MD Active LANSOPRAZOLE 30 MG CPDR 1 cap po qd LANSOPRAZOLE 64464776577 No Longer Active Vishal Hui MD Active BACLOFEN 20 MG TABS 1 tab po tid BACLOFEN 62483987383 No Longer Active Vishal Hui MD Active ADVAIR DISKUS 250-50 MCG/DOSE AEPB 1 puff BID ADVAIR DISKUS 250-50 MCG/DOSE AEPB FLUTICASONE-SALMETEROL Inactive ESCITALOPRAM OXALATE 20 MG TABS 1 tab po qd ESCITALOPRAM OXALATE 20 MG TABS 526279 ESCITALOPRAM OXALATE Inactive ATENOLOL 25 MG TABS 1 tab po qd ATENOLOL 25 MG TABS 244369 ATENOLOL Inactive BENZTROPINE MESYLATE 1 MG TABS 1 tab po qd BENZTROPINE MESYLATE 1 MG TABS 393782 BENZTROPINE MESYLATE Inactive BUSPIRONE HCL 15 MG TABS 1 tab po TID BUSPIRONE HCL 15 MG TABS 073711 BUSPIRONE HCL Inactive LEVOFLOXACIN 500 MG TABS 1 tab po qd LEVOFLOXACIN 500 MG TABS 966500 LEVOFLOXACIN Inactive PREDNISONE 20 MG TABS 1 tab po qd PREDNISONE 20 MG TABS 916644 PREDNISONE Inactive MIRALAX POWD 1 capfull once daily MIRALAX POWD 400929 POLYETHYLENE GLYCOL 3350 Inactive VERAPAMIL HCL ER 180 MG CR-TABS 1 tab po bid VERAPAMIL HCL ER 180 MG CR-TABS VERAPAMIL HCL Inactive LORATADINE 10 MG TABS 1 tab po qd LORATADINE 10 MG TABS 951569 LORATADINE Inactive LYRICA 50 MG CAPS 1 tab po TID LYRICA 50 MG CAPS PREGABALIN Inactive ZALEPLON 10 MG CAPS 1 cap po every other night ZALEPLON 10 MG CAPS 401701 ZALEPLON Inactive SAPHRIS 5 MG SUBL 1 tab po qd SAPHRIS 5 MG SUBL ASENAPINE MALEATE Inactive TRAZODONE HCL 50 MG TABS 1/2 tab po qd prn for anxiety TRAZODONE HCL 50 MG TABS 593216 TRAZODONE HCL Inactive LATUDA 20 MG TABS Take one by mouth daily LATUDA 20 MG TABS LURASIDONE HCL Inactive LISINOPRIL 20 MG TABS 1 tab po qd LISINOPRIL 20 MG TABS 518765 LISINOPRIL Inactive SAPHRIS 10 MG SUBL 1 [...] twice daily BACTRIM DS 800-160 MG TAB 874820 TRIMETHOPRIM-SULFAMETHOXAZOLE Inactive MULTIVITAMINS CAPS Take one by mouth daily MULTIVITAMINS CAPS MULTIPLE VITAMIN Inactive MELATONIN 3 MG CAPS 2 po q hs MELATONIN 3 MG CAPS 19950526 MELATONIN Inactive KEFLEX 500 MG ORAL CAPS 1 cap QID by mouth KEFLEX 500 MG ORAL CAPS 677630 CEPHALEXIN Inactive CLINDAMYCIN HCL 150 MG CAPS 1 four times a day CLINDAMYCIN HCL 150 MG CAPS 393813 CLINDAMYCIN HCL Inactive DIFLUCAN 150 MG TAB 1 tablet by mouth daily DIFLUCAN 150 MG TAB 963708 FLUCONAZOLE Inactive PROZAC 20 MG CAP Take one by mouth daily PROZAC 20 MG CAP 516262 FLUOXETINE HCL Inactive IBUPROFEN 600 MG TAB 1 po TID PRN IBUPROFEN 600 MG TAB 389712 IBUPROFEN Inactive VYVANSE 40 MG CAPS 1 daily, VYVANSE 40 MG CAPS LISDEXAMFETAMINE DIMESYLATE Inactive TRAZODONE HCL 100 MG TAB take 1 at bedtime TRAZODONE HCL 100 MG TAB 605223 TRAZODONE HCL Inactive AMITRIPTYLINE HCL 100 MG TAB one at hs AMITRIPTYLINE HCL 100 MG TAB 535217 AMITRIPTYLINE HCL Inactive AMLODIPINE BESYLATE 5 MG TABS 1 tablet by mouth daily AMLODIPINE BESYLATE 5 MG TABS 581782 AMLODIPINE BESYLATE Inactive LATUDA 80 MG TABS Take one by mouth daily LATUDA 80 MG TABS LURASIDONE HCL Inactive SAPHRIS 5 MG SUBL 1 po bid SAPHRIS 5 MG SUBL ASENAPINE MALEATE Inactive PREDNISONE 20 MG TAB 2 tabs daily for 4 days, 1 tab daily for 4 days, 1/2 tab daily for 4 days PREDNISONE 20 MG TAB 584872 PREDNISONE Inactive AMBIEN 5 MG ORAL TABS 1 tab at bedtime AMBIEN 5 MG ORAL TABS 639100 ZOLPIDEM TARTRATE Inactive PROZAC 20 MG ORAL CAPS 1 tab daily PROZAC 20 MG ORAL CAPS 308472 FLUOXETINE HCL Inactive ABILIFY 15 MG ORAL TABS 1 tab daily ABILIFY 15 MG ORAL TABS 763314 ARIPIPRAZOLE Inactive METOPROLOL TARTRATE 50 MG TAB 1 po bid METOPROLOL TARTRATE 50 MG TAB 551069 METOPROLOL TARTRATE Inactive TRAMADOL HCL 50 MG TABS 1-2 po TID PRN Pain TRAMADOL HCL 50 MG TABS 022453 TRAMADOL HCL Inactive PIROXICAM 20 MG CAPS 1 cap po qd PRN Pain PIROXICAM 20 MG CAPS 475092 PIROXICAM Inactive MINIPRESS 2 MG CAPS 4 cap po at night MINIPRESS 2 MG CAPS 235492 PRAZOSIN HCL Inactive MIRALAX PACK 1 po qd PRN Constipation MIRALAX PACK 628776 POLYETHYLENE GLYCOL 3350 Inactive METOPROLOL TARTRATE 25 MG ORAL TABS 1/2 tablet twice daily for heart rate and blood pressure METOPROLOL TARTRATE 25 MG ORAL TABS 800328 METOPROLOL TARTRATE Inactive VALIUM 5 MG TAB Take 1-2 tablets daily VALIUM 5 MG TAB 308296 DIAZEPAM Inactive FLAGYL 500 MG TAB 1 tablet by mouth bid FLAGYL 500 MG TAB 331398 METRONIDAZOLE Inactive DICLOFENAC POTASSIUM TABS Take 1 tablet twice a day (pt. is not sure of the dose.) DICLOFENAC POTASSIUM TABS DICLOFENAC POTASSIUM TABS Inactive ZITHROMAX Z-EARNEST 250 MG TABS 2 today and then 1 daily for 4 days ZITHROMAX Z-EARNEST 250 MG TABS 1694434 AZITHROMYCIN Inactive PREDNISONE 20 MG TABS 2 daily for 5 days then 1 daily for 5 days PREDNISONE 20 MG TABS 873997 PREDNISONE Inactive PROAIR HFA 108 (90 BASE) MCG/ACT AERS 2 puffs four times a day as needed 2015 PROAIR HFA 108 (90 BASE) MCG/ACT AERS ALBUTEROL SULFATE Inactive HYDROCODONE-ACETAMINOPHEN 5-325 MG TABS 1 to 2 four times a day as needed for pain use until can be seen by specialist HYDROCODONE- ACETAMINOPHEN 5-325 MG TABS 338228 HYDROCODONE-ACETAMINOPHEN Inactive TESSALON PERLES 100 MG CAP 1 to 2 tablets by mouth 3 times daily as needed for cough TESSALON PERLES 100 MG CAP 919302 BENZONATATE Inactive CHANTIX STARTING MONTH EARNEST 0.5 [...] Pain 2015 DICLOFENAC SODIUM 50 MG TBEC 099688 DICLOFENAC SODIUM Inactive TOPAMAX 50 MG ORAL TABS 1 tab twice daily TOPAMAX 50 MG ORAL TABS 976790 TOPIRAMATE Inactive VIIBRYD 10 MG ORAL TABS Take 1 tablet once a day VIIBRYD 10 MG ORAL TABS VILAZODONE HCL Inactive LEVOFLOXACIN 500 MG ORAL TABS po daily LEVOFLOXACIN 500 MG ORAL TABS 276347 LEVOFLOXACIN Inactive METHYLPREDNISOLONE 4 MG ORAL TABS po daily METHYLPREDNISOLONE 4 MG ORAL TABS 020808 METHYLPREDNISOLONE Inactive OXYCODONE HCL ER 10 MG ORAL T12A 1/2 tab by mouth every 4 hours prn OXYCODONE HCL ER 10 MG ORAL T12A OXYCODONE HCL Inactive FLAGYL 500 MG TAB 1 tablet by mouth bid FLAGYL 500 MG TAB 879342 METRONIDAZOLE Inactive MONISTAT 7 COMBO PACK WOODROW 100 & 2 MG-% (9GM) VAG KIT 1 applicatorful per vagina q pm x 7 MONISTAT 7 COMBO PACK WOODROW 100 & 2 MG-% (9GM) VAG KIT MICONAZOLE NITRATE Inactive CEFDINIR 300 MG CAPS by mouth twice a day CEFDINIR 300 MG CAPS 194648 CEFDINIR Inactive PREDNISONE 20 MG TAB 2 tabs daily for 3 days, 1 tab daily for 3 days, 1/2 tab daily for 2 days PREDNISONE 20 MG TAB 648688 PREDNISONE Inactive BACTRIM DS 800-160 MG TABS 1 po BID x 7 days BACTRIM DS 800-160 MG TABS 19820521 SULFAMETHOXAZOLE-TRIMETHOPRIM Inactive DIFLUCAN 150 MG TABS 1 pill every other day x 2 doses DIFLUCAN 150 MG TABS 19751126 FLUCONAZOLE Inactive BACTRIM DS 800-160 MG TABS 1 pill by mouth twice daily BACTRIM DS 800-160 MG TABS 344755 SULFAMETHOXAZOLE-TRIMETHOPRIM Inactive KEFLEX 500 MG CAP 1 po TID x 10 days KEFLEX 500 MG CAP 939048 CEPHALEXIN Inactive Advance Directives Directive Description Start [...] % 11.6-14.8 platelet count 394 10^3/MM^3 10*3/mm3 457-940 8009/01/11 leukocyte count, blood 13.8 10^3/MM^3 10*3/mm3 4.6-10.2 [...] Panel - Chemistry sodium, serum 139 mmol/L 065-545 4101/12/03 carbon dioxide, venous blood 28.5 mmol/L 21.0-32.0 [...] 5.5 % 4.3-6.0 cholesterol, serum 159 mg/dL 901-213 4755/12/03 triglyceride, serum, fasting 118 mg/dL 30-200 HDL [...] 362 10^3/MM^3 10*3/mm3 142-424 Lab Report: Chlamydia/GC APTIMA/[id number] - Lab chlamydia DNA probe NOT DETECTED NOT DETECTED Lab Report: Chlamydia/GC [facility]/[id number] - Microbiology Neisseria gonorrhoeae DNA probe NOT DETECTED NOT DETECTED Lab Report: Comp. Metabolic Panel - Chemistry sodium, serum 140 mmol/L 395-731 7152/08/08 carbon dioxide, venous blood 33.7 mmol/L 21.0-32.0 potassium, serum 5.0 mmol/L 3.5-5.2 chloride, serum 103 mmol/L 98-107 blood glucose 80 mg/dL 65-110 urea nitrogen, blood 13 mg/dL 7-18 creatinine, serum 0.88 mg/dL 0.55-1.30 alanine aminotransferase (SGPT), serum 54 U/L 12-78 aspartate aminotransferase (SGOT), serum 29 U/L 15-37 calcium, serum 9.7 mg/dL 8.5-10.1 bilirubin, serum, total 0.30 mg/dL 0.00-1.00 sodium, serum 139 mmol/L 299-632 4188/12/22 carbon dioxide, venous blood 26.8 mmol/L 21.0-32.0 potassium, serum 4.2 mmol/L 3.5-5.2 chloride, serum 103 mmol/L 98-107 blood glucose 115 mg/dL 65-110 urea nitrogen, blood 20 mg/dL 7-18 creatinine, serum 0.90 mg/dL 0.55-1.30 alanine aminotransferase (SGPT), serum 38 U/L -78 aspartate aminotransferase (SGOT), serum 19 U/L 15-37 calcium, serum 8.6 mg/dL 8.5-10.1 bilirubin, serum, total 0.30 mg/dL 0.00-1.00 sodium, serum 139 mmol/L 861-357 4083/01/11 carbon dioxide, venous blood 26.6 mmol/L 21.0-32.0 potassium, serum 4.1 mmol/L 3.5-5.2 chloride, serum 100 mmol/L 98-107 blood glucose 86 mg/dL 65-110 urea nitrogen, blood 16 mg/dL 7-18 creatinine, serum 1.00 mg/dL 0.55-1.30 alanine aminotransferase (SGPT), serum 48 U/L 12-78 aspartate aminotransferase (SGOT), serum 17 U/L 15-37 calcium, serum 9.1 mg/dL 8.5-10.1 bilirubin, serum, total 0.40 mg/dL 0.00-1.00 sodium, serum 142 mmol/L 701-647 5779/06/08 carbon dioxide, venous blood 27.6 mmol/L 21.0-32.0 [...] Rate - Chemistry sodium, serum 139 mmol/L 265-510 1092/12/11 carbon dioxide, venous blood 25.4 mmol/L 21.0-32.0 [...] mg/dL Encounters Code Encounter Date Provider Facility CPT-87556 Level 4 Est. Patient 14:45:00 HEEL SHAVER Ahmet Carbajal MD [facility] CPT-34086 Level 3 Est. Patient 13:59:59 CDT Luigi Mratínez [facility] CPT-41052 Level 3 Est. Patient 18:18:53 CDT Neeraj Collins MD [facility] CPT-61406 Level 3 Est. Patient 15:50:44 CDT Vishal Hui MD [facility] CPT-50700 Level 3 Est. Patient 11:36:17 CDT Ahmet Carbajal MD [facility] CPT-63036 Level 3 Est. Patient 13:29:16 CDT Vishal Hui MD [facility] CPT-35972 Level 3 Est. Patient 14:27:52 CDT Neeraj Collins MD [facility] CPT-48194 Level 3 Est. Patient 08:56:03 CDT Luigi Martínez [facility] CPT-66043 Level 4 Est. Patient 12:11:48 CDT Fabiola Johnson [facility] CPT-57258 Level 3 New Patient 16:53:37 CDT Albert Caldera MD [facility] CPT-35439 Level 3 Est. Patient 11:25:49 CDT Renzo Thornotn DO [facility] CPT-30200 Level 3 Est. Patient 15:22:01 CDT Ahmet Carbajal MD [facility] CPT-28482 Level 4 Est. Patient 09:00:51 HEEL SHAVER Vishal Hui MD [facility] CPT-04431 Level 3 Est. Patient 11:37:33 HEEL SHAVER Vishal Hui MD [facility] CPT-86337 Level 3 Est. Patient 08:41:09 HEEL SHAVER Vishal Hui MD [facility] CPT-28507 Level 4 Est. Patient 10:19:35 HEEL SHAVER Vishal Hui MD [facility] CPT-02882 Level 3 Est. Patient 13:35:45 CDT Vishal Hui MD [facility] CPT-44735 Level 4 Est. Patient 10:08:37 CDT Vishal Hui MD [facility] CPT-75956 Level 3 Est. Patient 11:22:10 CDT Vishal Hui MD [facility] CPT-12313 Level 3 Est. Patient 11:03:32 CDT Sahara Rodriguez MD [facility]-43341 Level 3 Est. Patient 09:41:35 CDT Vishal Hui MD [facility]-07757 Level 3 Est. Patient 12:00:41 CDT Neeraj Collins MD [facility] CPT-06983 Level 3 Est. Patient 09:16:24 CDT Vishal Hui MD [facility] CPT-95793 Level 4 Est. Patient 13:59:09 CDT Neeraj Collins MD [facility] CPT-88168 Level 3 Est. Patient 15:19:43 CDT Renzo Thornton DO [facility] CPT-43914 Level 3 Est. Patient 18:10:26 CDT Sahara Rodriguez MD [facility]-91133 Level 3 Est. Patient 14:49:50 CDT Vishal Hui MD [facility] CPT-78727 Level 4 Est. Patient 18:41:46 CDT Neeraj Collins MD [facility] CPT-36081 Level 4 Est. Patient 09:18:38 HEEL SHAVER Vishal Hui MD [facility] CPT-37931 Level 3 Est. Patient 14:43:55 HEEL SHAVER Vishal Hui MD [facility] CPT-26855 Level 3 Est. Patient 15:26:33 HEEL SHAVER Sahara Rodriguez MD PhD [facility] CPT-83027 Level 3 Est. Patient 10:32:14 HEEL SHAVER Vishal Hui MD [facility] CPT-61479 Level 3 Est. Patient 15:12:52 HEEL SHAVER Vishal Hui MD [facility] CPT-88706 Level 4 Est. Patient 09:19:27 CDT Vishal Hui MD [facility] CPT-33506 Level 3 Est. Patient 15:53:00 CDT Renzo Thornton [facility] CPT-91070 Level 3 Est. Patient 15:50:30 CDT Renzo Thornton [facility] CPT-01464 Level 3 Est. Patient 16:55:24 CDT Vishal Hui MD [facility] Procedures Code Procedure Name Date Entry Date Standard Description CPT-11938 Abx/Therapy Injection 17:34:30 HEEL SHAVER CPT-49988 Nexplanon Removal with Reinsertion 14:09:32 CDT CPT-J7307 Nexplanon (Implant) 14:09:32 CDT CPT-OV Office Visit 14:09:32 CDT CPT-01394 UA w micro - LAB USE ONLY 16:21:13 CDT CPT-36557 Wet Mount - LAB USE ONLY 16:21:13 CDT CPT-58552 First Vx - Ix admin for Medicare patients 14:37:47 CDT CPT-74709 Fluzone Preservative Free Intramuscular Suspension 14:37 :47 CDT CPT-33039 Abx/Therapy Injection 13:54:22 CDT CPT-54619 Abx/Therapy Injection 08:47:09 CDT CPT-11861 Abx/Therapy Injection 13:29:56 CDT CPT-61571 Abx/Therapy Injection 08:36:16 CDT CPT-41655 Wet Mount - LAB USE ONLY 17:44:58 CDT CPT-65612 UA w micro - LAB USE ONLY 17:44:58 CDT CPT-95946 CMP - LAB USE ONLY 17:44:58 CDT CPT-17027 Venipuncture Draw Fee 17:44:58 CDT CPT-22386 Cervical Min 4V - XRAY USE ONLY 09:01:40 CDT CPT-93982 Chest 2V Frontal and Lat - XRAY USE ONLY 11:06:31 CDT CPT-34831 EKG Trac and Interp - XRAY USE ONLY 11:31:43 CDT 08/26 CPT-J3420 Vitamin B12 1000mcg (Cyanocobalamin) 08:10:26 HE[employer]ER 04/12 CPT-86030 Abx/Therapy Injection 08:10:26 HEEL [employer]AVER CPT-G0438 Initial Annual Wellness Exam 19:01:01 HE[employer]ER CPT-J3420 Vitamin B12 1000mcg (Cyanocobalamin) 16:57:46 CDT 08/14 CPT-04775 Recombivax HB Injection Suspension 5 MCG/0.5ML 08:37:50 HE[employer]AVER CPT-04803 Immunization Single Admin 08:37:50 HEEL SHAVER CPT-J3420 Vitamin B12 1000mcg (Cyanocobalamin) 08:32:16 HEEL SHAVER 03/11 CPT-69705 Abx/Therapy Injection 08:32:16 HEEL [employer]AVER CPT-12840 Chest 2V Frontal and Lat 11:46:38 HE[employer]ER CPT-31267 Venipuncture Draw Fee 09:12:45 HEEL [employer]ER CPT-J3420 Vitamin B12 1000mcg (Cyanocobalamin) 08:50:15 HEEL SHAVER 02/08 CPT-33143 Abx/Therapy Injection 08:50:15 HEEL SHAVER CPT-Cryo Cryotherapy 10:19:35 HEEL SHAVER CPT-000 Give Appropriate Flu Vaccine 09:22:16 CDT CPT-J3420 Vitamin B12 1000mcg (Cyanocobalamin) 19:08:57 CDT 01/11 CPT-06222 Abx/Therapy Injection 19:08:57 CDT CPT-J3420 Vitamin B12 1000mcg (Cyanocobalamin) 08:19:08 CDT 12/11 CPT-61351 Abx/Therapy Injection 08:19:08 CDT CPT-J3420 Vitamin B12 1000mcg (Cyanocobalamin) 14:48:00 CDT 11/09 CPT-79321 Abx/Therapy Injection 14:47:59 CDT CPT-J3420 Vitamin B12 1000mcg (Cyanocobalamin) 08:34:04 CDT 10/09 CPT-20015 Abx/Therapy Injection 08:34:04 CDT CPT-J3420 Vitamin B12 1000mcg (Cyanocobalamin) 09:18:52 CDT 09/11 CPT-12622 Abx/Therapy Injection 09:18:52 CDT CPT-J3420 Vitamin B12 1000mcg (Cyanocobalamin) 08:35:44 CDT 09/04 CPT-74423 Abx/Therapy Injection 08:35:44 CDT CPT-03944 Immunization Single Admin 11:07:16 CDT CPT-45263 Hepatitis B adult IM 11:07:16 CDT CPT-J3420 Vitamin B12 1000mcg (Cyanocobalamin) 11:00:49 CDT 08/28 CPT-J1040 Depo Medrol 80 mg (Methyl Prednisolone Acetate) 11:00: 49 CDT CPT-64010 Abx/Therapy Injection 11:00:49 CDT CPT-J1040 Depo Medrol 80 mg (Methyl Prednisolone Acetate) 09:16: 23 CDT CPT-J3420 Vitamin B12 1000mcg (Cyanocobalamin) 08:27:05 CDT 08/20 CPT-12110 Abx/Therapy Injection 08:27:05 CDT CPT-32170 Recombivax HB Injection Suspension 5 MCG/0.5ML 10:00:41 CDT CPT-28683 Administration single or combination vaccine inc oral 10 :00:41 CDT CPT-10854 Sono transvag pelvis non OB uterus ovaries cervix 16:36: 57 CDT CPT-87112 LS spine comp w obliq 09:50:55 HEEL [employer]ER CPT-41493 Abd compl w upright 09:50:55 HEEL SHAVER CPT-J1100 Decadron 4mg (Dexamethasone) 15:51:24 HEEL [employer]AVER CPT-J1030 Depo Medrol 40 mg (Methyl Prednisolone Acetate) 15:51: 24 HEEL [employer]ER CPT-34677 Abx/Therapy Injection 15:51:24 HEEL SHAVER CPT-J1100 Decadron 4mg (Dexamethasone) 15:26:33 HEEL SHAVER CPT-J1030 Depo Medrol 40 mg (Methyl Prednisolone Acetate) 15:26: 33 HE[employer]ER CPT-42987 Sono retroperitoneal complete kidneys and bladder 17:15: 30 CDT CPT-18409 Abd compl w upright 16:09:25 CDT CPT-J1100 Decadron 8mg (Dexamethasone) 17:07:57 CDT CPT-94861 Abx/Therapy Injection 17:07:57 CDT CPT-J1100 Decadron 8mg (Dexamethasone) 16:55:24 CDT CPT-39953 Chest 2V Frontal and Lat 16:32:44 CDT
--- OUTSIDE RECORDS SUMMARY | 2016-11-04 18:50 | XMS REPORT | Clinical Summary ---
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 Juliet Kimbrough BISQUE PLACER Dependence on other enabling machines and devices [...] Shortness of breath 786.05 Active Fabiola Johnson [employer]QUE [employer]ACER Shortness of breath Nocturnal hypoxia 799.02 Active Fabiola Johnson BISQUE [employer]ACER Hypoxemia Neck pain 723.1 Active Jilljanee Martínez BISQUE PLACER Cervicalgia Vaginal discharge 623.5 Active Neeraj Collins [...] abnormal blood chemistry ICD-790.6 Jmi Hui MD Boils, recurrent ICD-680.9 Inactive Vishal Hui MD Postconcussion syndrome ICD-310.2 Jim Hui MD Nevus, 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 Jim Hui MD Encounter for removal of sutures ICD-V58.32 Jim Hui MD Hot flashes ICD-627.2 Jmi Hui MD Personality change ICD-301.9 Jim Hui [...] SUSR 400mg injection every 28 days ARIPIPRAZOLE 74484127221 Active Silvia Casey LPN Active FLAGYL 500 MG TAB 1 tablet by mouth bid METRONIDAZOLE 94048229020 Active Olimpia Raida Active FLUTICASONE PROPIONATE 50 MCG/ACT SUSP 2 sprays each nostril daily before bed. FLUTICASONE PROPIONATE 32343849446 Active Fabiola Johnson APRN Active VERAPAMIL HCL ER 120 MG ORAL CR-TABS 1 tab po daily for blood pressure 09/27 VERAPAMIL HCL 51368671460 Active Fabiola Johnson APRN Active ADZENYS XR-ODT 6.3 MG ORAL TBED 1 tab po daily for ADHD AMPHETAMINE 02965955349 Active Fabiola Johnson APRN Active BENADRYL 25 MG CAP 4 po at bedtime for insomnia DIPHENHYDRAMINE HCL 30700223864 Active Fabiola Johnson APRN Active KLONOPIN 1 MG ORAL TABS 1 tab po TID CLONAZEPAM 61354884529 Active Fabiola Johnson APRN Active VALIUM 5 MG TAB Take 1-2 tablets daily DIAZEPAM 22624049169 No Longer Active Fabiola Johnson APRN Active METOPROLOL TARTRATE 25 MG ORAL TABS 1/2 tablet twice daily for heart rate and blood pressure METOPROLOL TARTRATE 15304409682 No Longer Active Fabiola Johnson APRN Active MIRALAX ORAL POWD 17GMS DAILY IN WATER POLYETHYLENE GLYCOL 3350 14422373610 Active Vishal Hui MD Active VIIBRYD 10 MG ORAL TABS Take 1 tablet once a day VILAZODONE HCL 35669873412 Active Ahmet Carbajal MD Active DICLOFENAC POTASSIUM TABS Take 1 tablet twice a day (pt. is not sure of the dose.) DICLOFENAC POTASSIUM TABS 05079314791 Active Ahmet Carbajal MD Active MIRALAX PACK 1 po qd PRN Constipation POLYETHYLENE GLYCOL 3350 79353283341 No Longer Active Ahmet Carbajal MD Active MINIPRESS 2 MG CAPS 4 cap po at night PRAZOSIN HCL 52138096593 No Longer Active Ahmet Carbajal MD Active PIROXICAM 20 MG CAPS 1 cap po qd PRN Pain PIROXICAM 25610074657 No Longer Active Ahmet Carbajal MD Active TRAMADOL HCL 50 MG TABS 1-2 po TID PRN Pain TRAMADOL HCL 22927845944 No Longer Active Ahmet Carbajal MD Active METOPROLOL TARTRATE 50 MG TAB 1 po bid METOPROLOL TARTRATE 29869834429 No Longer Active Ahmet Carbajal MD Active ABILIFY 15 MG ORAL TABS 1 tab daily ARIPIPRAZOLE 85228607784 No Longer Active Ahmet Carbajal MD Active PROZAC 20 MG ORAL CAPS 1 tab daily FLUOXETINE HCL 30580044530 No Longer Active Ahmet Carbajal MD Active AMBIEN 5 MG ORAL TABS 1 tab at bedtime ZOLPIDEM TARTRATE 37588781892 No Longer Active Ahmet Carbajal MD Active PREDNISONE 20 MG TAB 2 tabs daily for 4 days, 1 tab daily for 4 days, 1/2 tab daily for 4 days PREDNISONE 29005125024 No Longer Active Ahmet Carbajal MD Active KEFLEX 500 MG CAP 1 po TID x 10 days CEPHALEXIN 91993226867 No Longer Active Vishal Hui MD Active IMITREX 50 MG ORAL TABS 1/2 tab every 6 hours prn SUMATRIPTAN SUCCINATE 65452816769 Active Luigi Martínez [employer]QUE [employer]ACER Active TOPAMAX 50 MG ORAL TABS 1 tab twice daily TOPIRAMATE 59579820869 Active Vishal Hui MD Active SAPHRIS 5 MG SUBL 1 po bid ASENAPINE MALEATE 20094428317 No Longer Active Luigi Martínez APRN Active LATUDA 80 MG TABS Take one by mouth daily LURASIDONE HCL 89900235054 No Longer Active Luigi Martínez APRN Active AMLODIPINE BESYLATE 5 MG TABS 1 tablet by mouth daily AMLODIPINE BESYLATE 60316001840 No Longer Active Luigi Matrínez [employer]ISQUE PLACER Active AMITRIPTYLINE HCL 100 MG TAB one at hs AMITRIPTYLINE HCL 14699996295 No Longer Active Vishal Hui MD Active TRAZODONE HCL 100 MG TAB take 1 at bedtime TRAZODONE HCL 85617640766 No Longer Active Vishal Hui MD Active VYVANSE 40 MG CAPS 1 daily, LISDEXAMFETAMINE DIMESYLATE 70582732323 No Longer Active Vishal Hui MD Active IBUPROFEN 600 MG TAB 1 po TID PRN IBUPROFEN 94569810841 No Longer Active Vishal Hui MD Active PROZAC 20 MG CAP Take one by mouth daily FLUOXETINE HCL 04121135595 No Longer Active Vishal Hui MD Active ZOFRAN 4 MG TABS 1 po q6hr PRN Nausea ONDANSETRON HCL Active Vishal Hui MD Active BACTRIM DS 800-160 MG TABS 1 pill by mouth twice daily SULFAMETHOXAZOLE-TRIMETHOPRIM 42648768836 No Longer Active Sahara Rodriguez MD PhD Active DIFLUCAN 150 MG TAB 1 tablet by mouth daily FLUCONAZOLE 25124300661 No Longer Active Vishal Hui MD Active TIZANIDINE HCL 4 MG TABS 1 po q6hr PRN Muscle Spasm/Back Pain TIZANIDINE HCL 97615543096 Active Vishal Hui MD Active CLINDAMYCIN HCL 150 MG CAPS 1 four times a day CLINDAMYCIN HCL 55683190485 No Longer Active Neeraj Collins MD Active KEFLEX 500 MG ORAL CAPS 1 cap QID by mouth CEPHALEXIN 12935827729 No Longer Active Neeraj Collins MD Active DIFLUCAN 150 MG TABS 1 pill every other day x 2 doses FLUCONAZOLE 96881064213 No Longer Active Sahara Rodriguez MD PhD Active MELATONIN 3 MG CAPS 2 po q hs MELATONIN 05959764547 No Longer Active Sahara Rodriguez MD PhD Active MULTIVITAMINS CAPS Take one by mouth daily MULTIPLE VITAMIN 48725395810 No Longer Active Sahara Rodriguez MD PhD Active BACTRIM DS 800-160 MG TAB 1 tab by mouth twice daily TRIMETHOPRIM-SULFAMETHOXAZOLE 88394610024 No Longer Active Sahara Rodriguez MD PhD Active [facility] PROBIOTIC ORAL CHEW 2 daily po PROBIOTIC PRODUCT 08726129946 No Longer Active Sahara Rodriguez MD PhD Active BACTRIM DS 800-160 MG TABS 1 po BID x 7 days SULFAMETHOXAZOLE-TRIMETHOPRIM 25935659640 No Longer Active Vishal Hui MD Active CHANTIX STARTING MONTH EARNEST 0.5 MG X 11 & 1 MG X 42 TABS 0.5mg daily for 3 days , then 0.5mg BID for 4 days, then 1mg BID VARENICLINE TARTRATE 63898985273 No Longer Active TAMARA Gray Active VERAPAMIL HCL CR 120 MG TAB CR 1 po bid VERAPAMIL HCL 09462670250 No Longer Active Vishal Hui MD Active METOPROLOL SUCCINATE 50 MG TB24 1 tablet by mouth daily METOPROLOL SUCCINATE 30163730128 No Longer Active Vishal Hui MD Active SAPHRIS 10 MG SUBL 1 tab po bid ASENAPINE MALEATE 77635040280 No Longer Active Vishal Hui MD Active LISINOPRIL 20 MG TABS 1 tab po qd LISINOPRIL 65079159716 No Longer Active Vishal Hui MD Active LATUDA 20 MG TABS Take one by mouth daily LURASIDONE HCL 45114248281 No Longer Active Vishal Hui MD Active TRAZODONE HCL 50 MG TABS 1/2 tab po qd prn for anxiety TRAZODONE HCL 90050897659 No Longer Active Vishal Hui MD Active OMEPRAZOLE 20 MG TBEC 1 po q a.m. 30min prior to first food intake OMEPRAZOLE 08786026866 Active Vishal Hui MD Active RANITIDINE HCL 150 MG CAPS 1 twice a day RANITIDINE HCL 48532892071 Active Jilljanee Martínez APRN Active LINZESS 290 MCG CAPS Take one by mouth daily LINACLOTIDE 09246963317 No Longer Active Vishal Hui MD Active SAPHRIS 5 MG SUBL 1 tab po qd ASENAPINE MALEATE 68557707751 No Longer Active Vishal Hui MD Active ZALEPLON 10 MG CAPS 1 cap po every other night ZALEPLON 38916314254 No Longer Active Vishal Hui MD Active LYRICA 50 MG CAPS 1 tab po TID PREGABALIN 20465615205 No Longer Active Vishal Hui MD Active LORATADINE 10 MG TABS 1 tab po qd LORATADINE 62789782797 No Longer Active Vishal Hui MD Active VERAPAMIL HCL ER 180 MG CR-TABS 1 tab po bid VERAPAMIL HCL 49372695903 No Longer Active Vishal Hui MD Active MIRALAX POWD 1 capfull once daily POLYETHYLENE GLYCOL 3350 73776780441 No Longer Active Vishal Hui MD Active PREDNISONE 20 MG TABS 1 tab po qd PREDNISONE 72965464213 No Longer Active Renzo Thornton DO Active LEVOFLOXACIN 500 MG TABS 1 tab po qd LEVOFLOXACIN 67246753866 No Longer Active Renzo Thornton DO Active BUSPIRONE HCL 15 MG TABS 1 tab po TID BUSPIRONE HCL 95647286783 No Longer Active Renzo Thornton DO Active BENZTROPINE MESYLATE 1 MG TABS 1 tab po qd BENZTROPINE MESYLATE 89613850490 No Longer Active Renzo Thornton DO Active ATENOLOL 25 MG TABS 1 tab po qd ATENOLOL 50429554046 No Longer Active Renzo Thornton DO Active ESCITALOPRAM OXALATE 20 MG TABS 1 tab po qd ESCITALOPRAM OXALATE 55674289344 No Longer Active Renzo Thornton DO Active ADVAIR DISKUS 250-50 MCG/DOSE AEPB 1 puff BID FLUTICASONE-SALMETEROL 60314067368 No Longer Active Renzo Thornton DO Active PREDNISONE 20 MG TAB 2 tabs daily for 3 days, 1 tab daily for 3 days, 1/2 tab daily for 2 days PREDNISONE 45896056788 No Longer Active Vishal Hui MD Active CEFDINIR 300 MG CAPS by mouth twice a day CEFDINIR 58606583983 No Longer Active Vishal Hui MD Active LANSOPRAZOLE 30 MG CPDR 1 cap po qd LANSOPRAZOLE 26055457308 No Longer Active Vishal Hui MD Active BACLOFEN 20 MG TABS 1 tab po tid BACLOFEN 28604364019 No Longer Active Vishal Hui MD Active ADVAIR DISKUS 250-50 MCG/DOSE AEPB 1 puff BID ADVAIR DISKUS 250-50 MCG/DOSE AEPB FLUTICASONE-SALMETEROL Inactive ESCITALOPRAM OXALATE 20 MG TABS 1 tab po qd ESCITALOPRAM OXALATE 20 MG TABS 356573 ESCITALOPRAM OXALATE Inactive ATENOLOL 25 MG TABS 1 tab po qd ATENOLOL 25 MG TABS 197467 ATENOLOL Inactive BENZTROPINE MESYLATE 1 MG TABS 1 tab po qd BENZTROPINE MESYLATE 1 MG TABS 883812 BENZTROPINE MESYLATE Inactive BUSPIRONE HCL 15 MG TABS 1 tab po TID BUSPIRONE HCL 15 MG TABS 683083 BUSPIRONE HCL Inactive LEVOFLOXACIN 500 MG TABS 1 tab po qd LEVOFLOXACIN 500 MG TABS 251076 LEVOFLOXACIN Inactive PREDNISONE 20 MG TABS 1 tab po qd PREDNISONE 20 MG TABS 074361 PREDNISONE Inactive MIRALAX POWD 1 capfull once daily MIRALAX POWD 895177 POLYETHYLENE GLYCOL 3350 Inactive VERAPAMIL HCL ER 180 MG CR-TABS 1 tab po bid VERAPAMIL HCL ER 180 MG CR-TABS VERAPAMIL HCL Inactive LORATADINE 10 MG TABS 1 tab po qd LORATADINE 10 MG TABS 947033 LORATADINE Inactive LYRICA 50 MG CAPS 1 tab po TID LYRICA 50 MG CAPS PREGABALIN Inactive ZALEPLON 10 MG CAPS 1 cap po every other night ZALEPLON 10 MG CAPS 035802 ZALEPLON Inactive SAPHRIS 5 MG SUBL 1 tab po qd SAPHRIS 5 MG SUBL ASENAPINE MALEATE Inactive TRAZODONE HCL 50 MG TABS 1/2 tab po qd prn for anxiety TRAZODONE HCL 50 MG TABS 005561 TRAZODONE HCL Inactive LATUDA 20 MG TABS Take one by mouth daily LATUDA 20 MG TABS LURASIDONE HCL Inactive LISINOPRIL 20 MG TABS 1 tab po qd LISINOPRIL 20 MG TABS 821527 LISINOPRIL Inactive SAPHRIS 10 MG SUBL 1 [...] twice daily BACTRIM DS 800-160 MG TAB 412720 TRIMETHOPRIM-SULFAMETHOXAZOLE Inactive MULTIVITAMINS CAPS Take one by mouth daily MULTIVITAMINS CAPS MULTIPLE VITAMIN Inactive MELATONIN 3 MG CAPS 2 po q hs MELATONIN 3 MG CAPS 955742 MELATONIN Inactive KEFLEX 500 MG ORAL CAPS 1 cap QID by mouth KEFLEX 500 MG ORAL CAPS 312263 CEPHALEXIN Inactive CLINDAMYCIN HCL 150 MG CAPS 1 four times a day CLINDAMYCIN HCL 150 MG CAPS 559775 CLINDAMYCIN HCL Inactive DIFLUCAN 150 MG TAB 1 tablet by mouth daily DIFLUCAN 150 MG TAB 819757 FLUCONAZOLE Inactive PROZAC 20 MG CAP Take one by mouth daily PROZAC 20 MG CAP 954884 FLUOXETINE HCL Inactive IBUPROFEN 600 MG TAB 1 po TID PRN IBUPROFEN 600 MG TAB 024079 IBUPROFEN Inactive VYVANSE 40 MG CAPS 1 daily, VYVANSE 40 MG CAPS LISDEXAMFETAMINE DIMESYLATE Inactive TRAZODONE HCL 100 MG TAB take 1 at bedtime TRAZODONE HCL 100 MG TAB 471107 TRAZODONE HCL Inactive AMITRIPTYLINE HCL 100 MG TAB one at hs AMITRIPTYLINE HCL 100 MG TAB 770620 AMITRIPTYLINE HCL Inactive AMLODIPINE BESYLATE 5 MG TABS 1 tablet by mouth daily AMLODIPINE BESYLATE 5 MG TABS 287702 AMLODIPINE BESYLATE Inactive LATUDA 80 MG TABS Take one by mouth daily LATUDA 80 MG TABS LURASIDONE HCL Inactive SAPHRIS 5 MG SUBL 1 po bid SAPHRIS 5 MG SUBL ASENAPINE MALEATE Inactive PREDNISONE 20 MG TAB 2 tabs daily for 4 days, 1 tab daily for 4 days, 1/2 tab daily for 4 days PREDNISONE 20 MG TAB 920209 PREDNISONE Inactive AMBIEN 5 MG ORAL TABS 1 tab at bedtime AMBIEN 5 MG ORAL TABS 797945 ZOLPIDEM TARTRATE Inactive PROZAC 20 MG ORAL CAPS 1 tab daily PROZAC 20 MG ORAL CAPS 303782 FLUOXETINE HCL Inactive ABILIFY 15 MG ORAL TABS 1 tab daily ABILIFY 15 MG ORAL TABS 505456 ARIPIPRAZOLE Inactive METOPROLOL TARTRATE 50 MG TAB 1 po bid METOPROLOL TARTRATE 50 MG TAB 189026 METOPROLOL TARTRATE Inactive TRAMADOL HCL 50 MG TABS 1-2 po TID PRN Pain TRAMADOL HCL 50 MG TABS 621584 TRAMADOL HCL Inactive PIROXICAM 20 MG CAPS 1 cap po qd PRN Pain PIROXICAM 20 MG CAPS 416926 PIROXICAM Inactive MINIPRESS 2 MG CAPS 4 cap po at night MINIPRESS 2 MG CAPS 228752 PRAZOSIN HCL Inactive MIRALAX PACK 1 po qd PRN Constipation MIRALAX PACK 475926 POLYETHYLENE GLYCOL 3350 Inactive METOPROLOL TARTRATE 25 MG ORAL TABS 1/2 tablet twice daily for heart rate and blood pressure METOPROLOL TARTRATE 25 MG ORAL TABS 087477 METOPROLOL TARTRATE Inactive VALIUM 5 MG TAB Take 1-2 tablets daily VALIUM 5 MG TAB 038547 DIAZEPAM Inactive CEFDINIR 300 MG CAPS by mouth twice a day CEFDINIR 300 MG CAPS 686362 CEFDINIR Inactive PREDNISONE 20 MG TAB 2 tabs daily for 3 days, 1 tab daily for 3 days, 1/2 tab daily for 2 days PREDNISONE 20 MG TAB 026450 PREDNISONE Inactive BACTRIM DS 800-160 MG TABS 1 po BID x 7 days BACTRIM DS 800-160 MG TABS 19820521 SULFAMETHOXAZOLE-TRIMETHOPRIM Inactive DIFLUCAN 150 MG TABS 1 pill every other day x 2 doses DIFLUCAN 150 MG TABS 862405 FLUCONAZOLE Inactive BACTRIM DS 800-160 MG TABS 1 pill by mouth twice daily BACTRIM DS 800-160 MG TABS 19820521 SULFAMETHOXAZOLE-TRIMETHOPRIM Inactive KEFLEX 500 MG CAP 1 po TID x 10 days KEFLEX 500 MG CAP 950440 CEPHALEXIN Inactive Advance Directives Directive Description Start [...] % 11.6-14.8 platelet count 394 10^3/MM^3 10*3/mm3 415-876 3221/01/11 leukocyte count, blood 13.8 10^3/MM^3 10*3/mm3 4.6-10.2 [...] Panel - Chemistry sodium, serum 139 mmol/L 929-409 5732/12/03 carbon dioxide, venous blood 28.5 mmol/L 21.0-32.0 [...] 5.5 % 4.3-6.0 cholesterol, serum 159 mg/dL 791-297 0943/12/03 triglyceride, serum, fasting 118 mg/dL 30-200 HDL [...] Panel - Chemistry sodium, serum 139 mmol/L 836-205 2328/12/22 carbon dioxide, venous blood 26.8 mmol/L 21.0-32.0 potassium, serum 4.2 mmol/L 3.5-5.2 chloride, serum 103 mmol/L 98-107 blood glucose 115 mg/dL 65-110 urea nitrogen, blood 20 mg/dL 7-18 creatinine, serum 0.90 mg/dL 0.55-1.30 alanine aminotransferase (SGPT), serum 38 U/L aspartate aminotransferase (SGOT), serum 19 U/L 15-37 calcium, serum 8.6 mg/dL 8.5-10.1 bilirubin, serum, total 0.30 mg/dL 0.00-1.00 sodium, serum 139 mmol/L 138-692 2100/01/11 carbon dioxide, venous blood 26.6 mmol/L 21.0-32.0 potassium, serum 4.1 mmol/L 3.5-5.2 chloride, serum 100 mmol/L 98-107 blood glucose 86 mg/dL 65-110 urea nitrogen, blood 16 mg/dL 7-18 creatinine, serum 1.00 mg/dL 0.55-1.30 alanine aminotransferase (SGPT), serum 48 U/L -78 aspartate aminotransferase (SGOT), serum 17 U/L 15-37 calcium, serum 9.1 mg/dL 8.5-10.1 bilirubin, serum, total 0.40 mg/dL 0.00-1.00 sodium, serum 142 mmol/L 352-895 1506/06/08 carbon dioxide, venous blood 27.6 mmol/L 21.0-32.0 potassium, serum 4.0 mmol/L 3.5-5.2 chloride, serum 105 mmol/L 98-107 blood glucose 95 mg/dL 65-110 urea nitrogen, blood 8 mg/dL 7-18 creatinine, serum 0.75 mg/dL 0.55-1.30 alanine aminotransferase (SGPT), serum 49 U/L -78 aspartate aminotransferase (SGOT), serum 28 U/L 15-37 calcium, serum 9.4 mg/dL 8.5-10.1 bilirubin, serum, total 0.30 mg/dL 0.00-1.00 sodium, serum 140 mmol/L 458-103 1520/08/08 carbon dioxide, venous blood 33.7 mmol/L 21.0-32.0 [...] Rate - Chemistry sodium, serum 139 mmol/L 066-118 1237/12/11 carbon dioxide, venous blood 25.4 mmol/L 21.0-32.0 [...] mg/dL Encounters Code Encounter Date Provider Facility CPT-21695 Level 3 Est. Patient 14:27:52 CDT Neeraj Collins MD [facility] CPT-34243 Level 3 Est. Patient 08:56:03 CDT Luigi Martínez [facility] CPT-39963 Level 4 Est. Patient 12:11:48 CDT Fabiola Johnson [facility] CPT-48660 Level 3 New Patient 16:53:37 CDT Albert Caldera MD [facility] CPT-42556 Level 3 Est. Patient 11:25:49 CDT Renzo Thornton DO [facility] CPT-17031 Level 3 Est. Patient 15:22:01 CDT Ahmet Carbajal MD [facility] CPT-07115 Level 4 Est. Patient 09:00:51 CLEARANCE COORDINATOR Vishal Hui MD [facility] CPT-21465 Level 3 Est. Patient 11:37:33 CLEARANCE COORDINATOR Vishal Hui MD [facility] CPT-48188 Level 3 Est. Patient 08:41:09 CLEARANCE COORDINATOR Vishal Hui MD [facility] CPT-10188 Level 4 Est. Patient 10:19:35 CLEARANCE COORDINATOR Vishal Hui MD [facility] CPT-42434 Level 3 Est. Patient 13:35:45 CDT Vishal Hui MD [facility] CPT-27968 Level 4 Est. Patient 10:08:37 CDT Vishal Hui MD [facility] CPT-06024 Level 3 Est. Patient 11:22:10 CDT Vishal Hui MD [facility] CPT-40876 Level 3 Est. Patient 11:03:32 CDT Sahara Rodriguez MD [facility] CPT-70708 Level 3 Est. Patient 09:41:35 CDT Vishal Hui MD [facility] CPT-95742 Level 3 Est. Patient 12:00:41 CDT Neeraj Collins MD [facility] CPT-05490 Level 3 Est. Patient 09:16:24 CDT Vishal Hui MD [facility] CPT-77795 Level 4 Est. Patient 13:59:09 CDT Neeraj Collins MD [facility] CPT-83811 Level 3 Est. Patient 15:19:43 CDT Renzo Thornton DO [facility] CPT-38666 Level 3 Est. Patient 18:10:26 CDT Sahara Rodriguez MD [facility]-82487 Level 3 Est. Patient 14:49:50 CDT Vishal Hui MD [facility] CPT-98801 Level 4 Est. Patient 18:41:46 CDT Neeraj Collins MD [facility] CPT-57046 Level 4 Est. Patient 09:18:38 CLEARANCE COORDINATOR Vishal Hui MD [facility] CPT-27779 Level 3 Est. Patient 14:43:55 CLEARANCE COORDINATOR Vishal Hui MD [facility] CPT-86723 Level 3 Est. Patient 15:26:33 CLEARANCE COORDINATOR Sahara Rodriguez MD [facility] CPT-66676 Level 3 Est. Patient 10:32:14 CLEARANCE COORDINATOR Vishal Hui MD [facility] CPT-20756 Level 3 Est. Patient 15:12:52 CLEARANCE COORDINATOR Vishal Hiu MD [facility] CPT-02464 Level 4 Est. Patient 09:19:27 CDT Vishal Hui MD [facility] CPT-17574 Level 3 Est. Patient 15:53:00 CDT Renzo Thornton [facility] CPT-71359 Level 3 Est. Patient 15:50:30 CDT Renzo Thornton [facility] CPT-22125 Level 3 Est. Patient 16:55:24 CDT Vishal Hui MD [facility] Procedures Code Procedure Name Date Entry Date Standard Description CPT-90821 Abx/Therapy Injection 13:29:56 CDT CPT-17891 Abx/Therapy Injection 08:36:16 CDT CPT-09856 Wet Mount - LAB USE ONLY 17:44:58 CDT CPT-47916 UA w micro - LAB USE ONLY 17:44:58 CDT CPT-72227 CMP - LAB USE ONLY 17:44:58 CDT CPT-99443 Venipuncture Draw Fee 17:44:58 CDT CPT-58971 Cervical Min 4V - XRAY USE ONLY 09:01:40 CDT CPT-16132 Chest 2V Frontal and Lat - XRAY USE ONLY 11:06:31 CDT CPT-37326 EKG Trac and Interp - XRAY USE ONLY 11:31:43 CDT 08/26 CPT-J3420 Vitamin B12 1000mcg (Cyanocobalamin) 08:10:26 CLEARANCE COORDINATOR 04/12 CPT-50614 Abx/Therapy Injection 08:10:26 CLEARANCE COORDINATOR CPT-G0438 Initial Annual Wellness Exam 19:01:01 CLEARANCE COORDINATOR CPT-J3420 Vitamin B12 1000mcg (Cyanocobalamin) 16:57:46 CDT 08/14 CPT-50355 Recombivax HB Injection Suspension 5 MCG/0.5ML 08:37:50 CLEARANCE COORDINATOR CPT-56339 Immunization Single Admin 08:37:50 CLEARANCE COORDINATOR CPT-J3420 Vitamin B12 1000mcg (Cyanocobalamin) 08:32:16 CLEARANCE COORDINATOR 03/11 CPT-48522 Abx/Therapy Injection 08:32:16 CLEARANCE COORDINATOR CPT-40755 Chest 2V Frontal and Lat 11:46:38 CLEARANCE COORDINATOR CPT-53590 Venipuncture Draw Fee 09:12:45 CLEARANCE COORDINATOR CPT-J3420 Vitamin B12 1000mcg (Cyanocobalamin) 08:50:15 CLEARANCE COORDINATOR 02/08 CPT-78508 Abx/Therapy Injection 08:50:15 CLEARANCE COORDINATOR CPT-Cryo Cryotherapy 10:19:35 CLEARANCE COORDINATOR CPT-000 Give Appropriate Flu Vaccine 09:22:16 CDT CPT-J3420 Vitamin B12 1000mcg (Cyanocobalamin) 19:08:57 CDT 01/11 CPT-24034 Abx/Therapy Injection 19:08:57 CDT CPT-J3420 Vitamin B12 1000mcg (Cyanocobalamin) 08:19:08 CDT 12/11 CPT-38803 Abx/Therapy Injection 08:19:08 CDT CPT-J3420 Vitamin B12 1000mcg (Cyanocobalamin) 14:48:00 CDT 11/09 CPT-17651 Abx/Therapy Injection 14:47:59 CDT CPT-J3420 Vitamin B12 1000mcg (Cyanocobalamin) 08:34:04 CDT 10/09 CPT-55218 Abx/Therapy Injection 08:34:04 CDT CPT-J3420 Vitamin B12 1000mcg (Cyanocobalamin) 09:18:52 CDT 09/11 CPT-03522 Abx/Therapy Injection 09:18:52 CDT CPT-J3420 Vitamin B12 1000mcg (Cyanocobalamin) 08:35:44 CDT 09/04 CPT-07956 Abx/Therapy Injection 08:35:44 CDT CPT-96770 Immunization Single Admin 11:07:16 CDT CPT-18270 Hepatitis B adult IM 11:07:16 CDT CPT-J3420 Vitamin B12 1000mcg (Cyanocobalamin) 11:00:49 CDT 08/28 CPT-J1040 Depo Medrol 80 mg (Methyl Prednisolone Acetate) 11:00: 49 CDT CPT-13081 Abx/Therapy Injection 11:00:49 CDT CPT-J1040 Depo Medrol 80 mg (Methyl Prednisolone Acetate) 09:16: 23 CDT CPT-J3420 Vitamin B12 1000mcg (Cyanocobalamin) 08:27:05 CDT 08/20 CPT-35866 Abx/Therapy Injection 08:27:05 CDT CPT-73690 Recombivax HB Injection Suspension 5 MCG/0.5ML 10:00:41 CDT CPT-40247 Administration single or combination vaccine inc oral 10 :00:41 CDT CPT-94989 Sono transvag pelvis non OB uterus ovaries cervix 16:36: 57 CDT CPT-94287 LS spine comp w obliq 09:50:55 CLEARANCE COORDINATOR CPT-84753 Abd compl w upright 09:50:55 CLEARANCE COORDINATOR CPT-J1100 Decadron 4mg (Dexamethasone) 15:51:24 CLEARANCE COORDINATOR CPT-J1030 Depo Medrol 40 mg (Methyl Prednisolone Acetate) 15:51: 24 CLEARANCE COORDINATOR CPT-98549 Abx/Therapy Injection 15:51:24 CLEARANCE COORDINATOR CPT-J1100 Decadron 4mg (Dexamethasone) 15:26:33 CLEARANCE COORDINATOR CPT-J1030 Depo Medrol 40 mg (Methyl Prednisolone Acetate) 15:26: 33 CLEARANCE COORDINATOR CPT-30748 Sono retroperitoneal complete kidneys and bladder 17:15: 30 CDT CPT-52164 Abd compl w upright 16:09:25 CDT CPT-J1100 Decadron 8mg (Dexamethasone) 17:07:57 CDT CPT-99497 Abx/Therapy Injection 17:07:57 CDT CPT-J1100 Decadron 8mg (Dexamethasone) 16:55:24 CDT CPT-29600 Chest 2V Frontal and Lat 16:32:44 CDT
--- OUTSIDE RECORDS SUMMARY | 2016-11-04 18:53 | XMS REPORT | Clinical Summary ---
Author Author Admin, E Organization [employer] Address Unknown Phone Unavailable Allergies, Adverse Reactions, [...] Active Ahmet Carbajal MD Generalized anxiety disorder Lock Stitch Channeler well woman exam V72.31 Active Suzan Boo [...] MD Health screening ICD-V70.0 Inactive Suzan Boo MANAGER CASE Sinus tachycardia ICD-427.89 Inactive Suzan Boo MANAGER CASE Abdominal pain ICD-789.00 Inactive Vishal Hui MD Cellulitis ICD-682.9 Inactive Vishal Hui MD Pelvic pain ICD-625.9 Inactive Vishal Hui MD Abscess, skin ICD-682.9 Inactive Vishal Hui MD Physical examination ICD-V70.0 Inactive Vishal Hui MD Vaginitis ICD-616.10 Inactive Vishal Hui MD 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 Inactive Vishal Hui MD Fatigue ICD-780.79 Inactive Vishal uHi MD 2014 Vaginitis, candidal ICD-112.1 Inactive Vishal [...] blood glucose ICD-790.29 Inactive Vishal Hui MD Smoker/tobacco use disorder-smoking cessation discussed ICD-305.1 Inactive Vishal Hui MD Gait unsteady ICD-781.2 [...] SOLN 30mL oral daily for IBS-C LACTULOSE 40834432053 Active Suzan Boo APRN Active TESSALON PERLES 100 MG CAPS 1 three times a day as needed for cough BENZONATATE 00968017529 No Longer Active Suzan Boo APRN Active BACTRIM DS 800-160 MG TABS 1 twice a day SULFAMETHOXAZOLE-TRIMETHOPRIM 14244524966 No Longer Active Suzan Boo APRN Active DIFLUCAN 150 MG TABS 1 by mouth for yeast FLUCONAZOLE 90328943190 No Longer Active Suzan Boo APRN Active EQ NICOTINE 21 MG/24HR TRANS PT24 Apply daily to stop smoking NICOTINE 76736622435 No Longer Active Suzan Boo APRN Active PREDNISONE 10 MG TABS 2 daily for 5 days then 1 daily for 5 days PREDNISONE 14970588221 No Longer Active Suzan Boo APRN Active LEVAQUIN 500 MG TABS 1 daily for infection LEVOFLOXACIN 12777421433 No Longer Active Suzan Boo APRN Active TROPICAMIDE 0.5 % OPHTH SOLN 1 drop PRN eye spasms TROPICAMIDE 28632594993 No Longer Active Suzan Boo APRN Active PREDNISONE 20 MG TAB 1 tablet daily x 4 days PREDNISONE 62210512360 No Longer Active Suzan Boo APRN Active ACETAMINOPHEN-CODEINE 120-12 MG/5ML SOLN 5 ml by mouth every 4-6 hours if needed for cough ACETAMINOPHEN-CODEINE 20504083771 No Longer Active Suzan Boo APRN Active KEFLEX 500 MG CAP 1 po qid CEPHALEXIN 82929540064 No Longer Active Suzan Boo APRN Active FLOVENT HFA 110 MCG/ACT AERO 2 puffs inhaled b.i.d. FLUTICASONE PROPIONATE HFA 20518614270 Active Renzo Thornton DO Active RISPERDAL 4 MG ORAL TABS 1 tab at bedtime RISPERIDONE 70065038360 Active Samantha Rothman RMA Active ZOFRAN 4 MG TABS 1 po q6hr PRN Nausea ONDANSETRON HCL No Longer Active Suzan Boo APRN Active FLUTICASONE PROPIONATE 50 MCG/ACT SUSP 2 sprays each nostril daily before bed. FLUTICASONE PROPIONATE 84132035373 No Longer Active Suzan Boo APRN Active ASPIRIN 325 MG ORAL TABS 1 tab q.d ASPIRIN 72477355974 No Longer Active Suzan Boo APRN Active HALOPERIDOL 10 MG ORAL TABS 1 tab q.d HALOPERIDOL 27585907358 No Longer Active Suzan Boo APRN Active GUAIFENESIN-CODEINE 100-10 MG/5ML SYRP 5ml every 4 to 6 hours as needed for cough GUAIFENESIN-CODEINE 45000133518 No Longer Active Suzan Boo APRN Active ZITHROMAX Z-EARNEST 250 MG TABS 2 today and then 1 daily for 4 days AZITHROMYCIN 42465467136 No Longer Active Suzan Boo APRN Active CLONAZEPAM 1 MG ORAL TABS 1 twice a day and an additional 1 tablet every other day as needed for pseudoseizures or anxiety CLONAZEPAM 92181920325 Active Ahmet Carbajal MD Active HYDROCODONE-ACETAMINOPHEN 5-325 MG ORAL TABS 1 tab two times a day HYDROCODONE-ACETAMINOPHEN 12786888515 No Longer Active Ahmet Carbajal MD Active LAMICTAL 100 MG ORAL TABS 1 tab 2 times qd. LAMOTRIGINE 33810919516 Active Ahmet Carbajal MD Active PREDNISONE 20 MG TABS 2 daily for 5 days then 1 daily for 5 days PREDNISONE 79511054516 No Longer Active Ahmet Carbajal MD Active FLUTICASONE PROPIONATE 50 MCG/ACT SUSP 1 to 2 sprays each nostril daily for allergies FLUTICASONE PROPIONATE 97951131573 Active Tila Valenzuela Active BENADRYL 25 MG CAP 4 po at bedtime for insomnia DIPHENHYDRAMINE HCL 46086298418 No Longer Active Ahmet Carbajal MD Active ADVAIR DISKUS 250-50 MCG/DOSE INH AEPB 1 puff twice a day for asthma FLUTICASONE-SALMETEROL 21955913010 No Longer Active Ahmet Carbajal MD Active KLONOPIN 1 MG ORAL TABS 1 tab po TID CLONAZEPAM 74759373477 No Longer Active Ahmet Carbajal MD Active ABILIFY MAINTENA 400 MG IM SUSR 400mg injection every 26 days ARIPIPRAZOLE 68446327482 No Longer Active Ahmet Carbajal MD Active TRAMADOL HCL 50 MG TABS 1/2-1 tab TID PRN TRAMADOL HCL 91460821594 No Longer Active Ahmet Carbajal MD Active BACTRIM DS 800-160 MG TABS 1 twice a day SULFAMETHOXAZOLE- TRIMETHOPRIM 60404752611 No Longer Active Ahmet Carbajal MD Active PROAIR HFA 108 (90 BASE) MCG/ACT AERS 2 puffs four times a day as needed 2015 ALBUTEROL SULFATE 13081365520 Active Honey Behzadstevenson MANAGER CASE Active MONISTAT 7 COMBO PACK WOODROW 100 & 2 MG-% (9GM) VAG KIT 1 applicatorful per vagina q pm x 7 MICONAZOLE NITRATE 78788663517 No Longer Active Ahmet Carbajal MD Active FLAGYL 500 MG TAB 1 tablet by mouth bid METRONIDAZOLE 28523399303 No Longer Active Ahmet Carbajal MD Active OXYCODONE HCL ER 10 MG ORAL T12A 1/2 tab by mouth every 4 hours prn OXYCODONE HCL 52139582565 No Longer Active Ahmet Carbajal MD Active METHYLPREDNISOLONE 4 MG ORAL TABS po daily METHYLPREDNISOLONE 47477614319 No Longer Active Ahmet Carbajal MD Active LEVOFLOXACIN 500 MG ORAL TABS po daily LEVOFLOXACIN 15523297335 No Longer Active Ahmet Carbajal MD Active VIIBRYD 10 MG ORAL TABS Take 1 tablet once a day VILAZODONE HCL 73603173048 No Longer Active Ahmet Carbajal MD Active TOPAMAX 50 MG ORAL TABS 1 tab twice daily TOPIRAMATE 60774255687 No Longer Active Ahmet Carbajal MD Active DICLOFENAC SODIUM 50 MG TBEC 1 tablet by mouth four times daily PRN Pain 2015 DICLOFENAC SODIUM 36427414688 No Longer Active Ahmet Carbajal MD Active ADZENYS XR-ODT 6.3 MG ORAL TBED 1 tab po daily for ADHD AMPHETAMINE 75758155763 No Longer Active Ahmet Carbajal MD Active CHANTIX 1 MG TABS 1 twice a day to help quit smoking VARENICLINE TARTRATE 86026501928 No Longer Active Dipika Burgos MD Active CHANTIX STARTING MONTH EARNEST 0.5 MG X 11 & 1 MG X 42 TABS take as directed 2015 VARENICLINE TARTRATE 33113240376 No Longer Active Dipika Burgos MD Active TESSALON PERLES 100 MG CAP 1 to 2 tablets by mouth 3 times daily as needed for cough BENZONATATE 57888481916 No Longer Active Luigi Martínez APRN Active IMITREX 50 MG ORAL TABS 0.5 po x 1 PRN Headache. May repeat dose x 1 in 2 hours if needed SUMATRIPTAN SUCCINATE 61274804572 Active Ahmet Carbajal MD Active HYDROCODONE-ACETAMINOPHEN 5-325 MG TABS 1 to 2 four times a day as needed for pain use until can be seen by specialist HYDROCODONE- ACETAMINOPHEN 77126902262 No Longer Active Vishal Hui MD Active PROAIR HFA 108 (90 BASE) MCG/ACT AERS 2 puffs four times a day as needed 2015 ALBUTEROL SULFATE 07917887807 No Longer Active Vishal Hui MD Active PREDNISONE 20 MG TABS 2 daily for 5 days then 1 daily for 5 days PREDNISONE 11287368341 No Longer Active Vishal Hui MD Active ZITHROMAX Z-EARNEST 250 MG TABS 2 today and then 1 daily for 4 days AZITHROMYCIN 10513002812 No Longer Active Vishal Hui MD Active DICLOFENAC POTASSIUM TABS Take 1 tablet twice a day (pt. is not sure of the dose.) DICLOFENAC POTASSIUM TABS 66779103070 No Longer Active Vishal Hui MD Active VERAPAMIL HCL ER 120 MG ORAL CR-TABS Take 1 tablet by mouth twice a day. VERAPAMIL HCL 93764879692 Active Vishal Hui MD Active FLAGYL 500 MG TAB 1 tablet by mouth bid METRONIDAZOLE 26672815673 No Longer Active Vishal Hui MD Active VALIUM 5 MG TAB Take 1-2 tablets daily DIAZEPAM 28184953602 No Longer Active Fabiola Johnson APRN Active METOPROLOL TARTRATE 25 MG ORAL TABS 1/2 tablet twice daily for heart rate and blood pressure METOPROLOL TARTRATE 02495728373 No Longer Active Fabiola Johnson APRN Active MIRALAX ORAL POWD 17GMS DAILY IN WATER POLYETHYLENE GLYCOL 3350 96040789042 Active TAMARA Casey Active MIRALAX PACK 1 po qd PRN Constipation POLYETHYLENE GLYCOL 3350 22124841782 No Longer Active Ahmet Carbajal MD Active MINIPRESS 2 MG CAPS 4 cap po at night PRAZOSIN HCL 22894292815 No Longer Active Ahmet Carbajal MD Active PIROXICAM 20 MG CAPS 1 cap po qd PRN Pain PIROXICAM 47372900981 No Longer Active Ahmet Carbajal MD Active TRAMADOL HCL 50 MG TABS 1-2 po TID PRN Pain TRAMADOL HCL 33381324870 No Longer Active Ahmet Carbajal MD Active METOPROLOL TARTRATE 50 MG TAB 1 po bid METOPROLOL TARTRATE 14417420330 No Longer Active Ahmet Carbajal MD Active ABILIFY 15 MG ORAL TABS 1 tab daily ARIPIPRAZOLE 45774294480 No Longer Active Ahmet Carbajal MD Active PROZAC 20 MG ORAL CAPS 1 tab daily FLUOXETINE HCL 35019701650 No Longer Active Ahmet Carbajal MD Active AMBIEN 5 MG ORAL TABS 1 tab at bedtime ZOLPIDEM TARTRATE 48996001649 No Longer Active Ahmet Carbajal MD Active PREDNISONE 20 MG TAB 2 tabs daily for 4 days, 1 tab daily for 4 days, 1/2 tab daily for 4 days PREDNISONE 95986475130 No Longer Active Ahmet Carbajal MD Active KEFLEX 500 MG CAP 1 po TID x 10 days CEPHALEXIN 92688803728 No Longer Active Vishal Hui MD Active SAPHRIS 5 MG SUBL 1 po bid ASENAPINE MALEATE 91874204890 No Longer Active Jillina Fralebron MANAGER CASE Active LATUDA 80 MG TABS Take one by mouth daily LURASIDONE HCL 21009266595 No Longer Active Jillina Frazell MANAGER CASE Active AMLODIPINE BESYLATE 5 MG TABS 1 tablet by mouth daily AMLODIPINE BESYLATE 45059784111 No Longer Active Jillina Mauricio WALTERSN Active AMITRIPTYLINE HCL 100 MG TAB one at hs AMITRIPTYLINE HCL 05453198407 No Longer Active Vishal Hui MD Active TRAZODONE HCL 100 MG TAB take 1 at bedtime TRAZODONE HCL 69574629547 No Longer Active Vishal Hui MD Active VYVANSE 40 MG CAPS 1 daily, LISDEXAMFETAMINE DIMESYLATE 20429129544 No Longer Active Vishal Hui MD Active IBUPROFEN 600 MG TAB 1 po TID PRN IBUPROFEN 48351798496 No Longer Active Vishal Hui MD Active PROZAC 20 MG CAP Take one by mouth daily FLUOXETINE HCL 52458481197 No Longer Active Vishal Hui MD Active BACTRIM DS 800-160 MG TABS 1 pill by mouth twice daily SULFAMETHOXAZOLE-TRIMETHOPRIM 88762577693 No Longer Active Sahara Rodriguez MD PhD Active DIFLUCAN 150 MG TAB 1 tablet by mouth daily FLUCONAZOLE 84560976170 No Longer Active Vishal Hui MD Active TIZANIDINE HCL 4 MG TABS 1 po q6hr PRN Muscle Spasm/Back Pain TIZANIDINE HCL 67374574778 Active Vishal Hui MD Active CLINDAMYCIN HCL 150 MG CAPS 1 four times a day CLINDAMYCIN HCL 80459379099 No Longer Active Neeraj Collins MD Active KEFLEX 500 MG ORAL CAPS 1 cap QID by mouth CEPHALEXIN 75920309021 No Longer Active Neeraj Collins MD Active DIFLUCAN 150 MG TABS 1 pill every other day x 2 doses FLUCONAZOLE 03263523149 No Longer Active Sahara Rodriguez MD PhD Active MELATONIN 3 MG CAPS 2 po q hs MELATONIN 04652966467 No Longer Active Saahra Rodriguez MD PhD Active MULTIVITAMINS CAPS Take one by mouth daily MULTIPLE VITAMIN 98635627829 No Longer Active Sahara Rodriguez MD PhD Active BACTRIM DS 800-160 MG TAB 1 tab by mouth twice daily TRIMETHOPRIM-SULFAMETHOXAZOLE 98100246040 No Longer Active Sahara Rodriguez MD PhD Active [facility] PROBIOTIC ORAL CHEW 2 daily po PROBIOTIC PRODUCT 30529156753 No Longer Active Sahara Rodriguez MD PhD Active BACTRIM DS 800-160 MG TABS 1 po BID x 7 days SULFAMETHOXAZOLE-TRIMETHOPRIM 76077238963 No Longer Active Vishal Hui MD Active CHANTIX STARTING MONTH EARNEST 0.5 MG X 11 & 1 MG X 42 TABS 0.5mg daily for 3 days , then 0.5mg BID for 4 days, then 1mg BID VARENICLINE TARTRATE 54400824867 No Longer Active TAMARA Gray Active VERAPAMIL HCL CR 120 MG TAB CR 1 po bid VERAPAMIL HCL 14792251310 No Longer Active Vishal Hui MD Active METOPROLOL SUCCINATE 50 MG TB24 1 tablet by mouth daily METOPROLOL SUCCINATE 28136857501 No Longer Active Vishal Hui MD Active SAPHRIS 10 MG SUBL 1 tab po bid ASENAPINE MALEATE 58224070144 No Longer Active Vishal Hui MD Active LISINOPRIL 20 MG TABS 1 tab po qd LISINOPRIL 35932626923 No Longer Active Vishal Hui MD Active LATUDA 20 MG TABS Take one by mouth daily LURASIDONE HCL 62316957298 No Longer Active Vishal Hui MD Active TRAZODONE HCL 50 MG TABS 1/2 tab po qd prn for anxiety TRAZODONE HCL 24326281350 No Longer Active Vishal Hui MD Active OMEPRAZOLE 20 MG TBEC 1 po q a.m. 30min prior to first food intake OMEPRAZOLE 66012050488 Active TAMARA Casey Active RANITIDINE HCL 150 MG CAPS 1 twice a day RANITIDINE HCL 99112760624 Active Jilljanee Martínez MANAGER CASE Active LINZESS 290 MCG CAPS Take one by mouth daily LINACLOTIDE 06196718316 No Longer Active Vishal Hui MD Active SAPHRIS 5 MG SUBL 1 tab po qd ASENAPINE MALEATE 89702018809 No Longer Active Vishal Hui MD Active ZALEPLON 10 MG CAPS 1 cap po every other night ZALEPLON 83142195449 No Longer Active Vishal Hui MD Active LYRICA 50 MG CAPS 1 tab po TID PREGABALIN 47902669429 No Longer Active Vishal Hui MD Active LORATADINE 10 MG TABS 1 tab po qd LORATADINE 46319222938 No Longer Active Vishal Hui MD Active VERAPAMIL HCL ER 180 MG CR-TABS 1 tab po bid VERAPAMIL HCL 20056164321 No Longer Active Vishal Hui MD Active MIRALAX POWD 1 capfull once daily POLYETHYLENE GLYCOL 3350 07345214053 No Longer Active Vishal Hui MD Active PREDNISONE 20 MG TABS 1 tab po qd PREDNISONE 76995312242 No Longer Active Renzo Thornton DO Active LEVOFLOXACIN 500 MG TABS 1 tab po qd LEVOFLOXACIN 88305989172 No Longer Active Renzo Thornton DO Active BUSPIRONE HCL 15 MG TABS 1 tab po TID BUSPIRONE HCL 54206228180 No Longer Active Renzo Thornton DO Active BENZTROPINE MESYLATE 1 MG TABS 1 tab po qd BENZTROPINE MESYLATE 89269966730 No Longer Active Renzo Thornton DO Active ATENOLOL 25 MG TABS 1 tab po qd ATENOLOL 21572877812 No Longer Active Renzo Thornton DO Active ESCITALOPRAM OXALATE 20 MG TABS 1 tab po qd ESCITALOPRAM OXALATE 31426222389 No Longer Active Renzo Thornton DO Active ADVAIR DISKUS 250-50 MCG/DOSE AEPB 1 puff BID FLUTICASONE-SALMETEROL 12813892037 No Longer Active Renzo Thornton DO Active PREDNISONE 20 MG TAB 2 tabs daily for 3 days, 1 tab daily for 3 days, 1/2 tab daily for 2 days PREDNISONE 67195905110 No Longer Active Vishal Hui MD Active CEFDINIR 300 MG CAPS by mouth twice a day CEFDINIR 20464736003 No Longer Active Vishal Hui MD Active LANSOPRAZOLE 30 MG CPDR 1 cap po qd LANSOPRAZOLE 56584743968 No Longer Active Vishal Hui MD Active BACLOFEN 20 MG TABS 1 tab po tid BACLOFEN 00323544300 No Longer Active Vishal Hui MD Active ADVAIR DISKUS 250-50 MCG/DOSE AEPB 1 puff BID ADVAIR DISKUS 250-50 MCG/DOSE AEPB FLUTICASONE-SALMETEROL Inactive ESCITALOPRAM OXALATE 20 MG TABS 1 tab po qd ESCITALOPRAM OXALATE 20 MG TABS 651236 ESCITALOPRAM OXALATE Inactive ATENOLOL 25 MG TABS 1 tab po qd ATENOLOL 25 MG TABS 957294 ATENOLOL Inactive BENZTROPINE MESYLATE 1 MG TABS 1 tab po qd BENZTROPINE MESYLATE 1 MG TABS 708032 BENZTROPINE MESYLATE Inactive BUSPIRONE HCL 15 MG TABS 1 tab po TID BUSPIRONE HCL 15 MG TABS 431007 BUSPIRONE HCL Inactive LEVOFLOXACIN 500 MG TABS 1 tab po qd LEVOFLOXACIN 500 MG TABS 321129 LEVOFLOXACIN Inactive PREDNISONE 20 MG TABS 1 tab po qd PREDNISONE 20 MG TABS 449754 PREDNISONE Inactive MIRALAX POWD 1 capfull once daily MIRALAX POWD 166817 POLYETHYLENE GLYCOL 3350 Inactive VERAPAMIL HCL ER 180 MG CR-TABS 1 tab po bid VERAPAMIL HCL ER 180 MG CR-TABS VERAPAMIL HCL Inactive LORATADINE 10 MG TABS 1 tab po qd LORATADINE 10 MG TABS 312664 LORATADINE Inactive LYRICA 50 MG CAPS 1 tab po TID LYRICA 50 MG CAPS PREGABALIN Inactive ZALEPLON 10 MG CAPS 1 cap po every other night ZALEPLON 10 MG CAPS 664702 ZALEPLON Inactive SAPHRIS 5 MG SUBL 1 tab po qd SAPHRIS 5 MG SUBL ASENAPINE MALEATE Inactive TRAZODONE HCL 50 MG TABS 1/2 tab po qd prn for anxiety TRAZODONE HCL 50 MG TABS 625518 TRAZODONE HCL Inactive LATUDA 20 MG TABS Take one by mouth daily LATUDA 20 MG TABS LURASIDONE HCL Inactive LISINOPRIL 20 MG TABS 1 tab po qd LISINOPRIL 20 MG TABS 461421 LISINOPRIL Inactive SAPHRIS 10 MG SUBL 1 [...] twice daily BACTRIM DS 800-160 MG TAB 159893 TRIMETHOPRIM-SULFAMETHOXAZOLE Inactive MULTIVITAMINS CAPS Take one by mouth daily MULTIVITAMINS CAPS MULTIPLE VITAMIN Inactive MELATONIN 3 MG CAPS 2 po q hs MELATONIN 3 MG CAPS 957233 MELATONIN Inactive KEFLEX 500 MG ORAL CAPS 1 cap QID by mouth KEFLEX 500 MG ORAL CAPS 533714 CEPHALEXIN Inactive CLINDAMYCIN HCL 150 MG CAPS 1 four times a day CLINDAMYCIN HCL 150 MG CAPS 964220 CLINDAMYCIN HCL Inactive DIFLUCAN 150 MG TAB 1 tablet by mouth daily DIFLUCAN 150 MG TAB 365863 FLUCONAZOLE Inactive PROZAC 20 MG CAP Take one by mouth daily PROZAC 20 MG CAP 629932 FLUOXETINE HCL Inactive IBUPROFEN 600 MG TAB 1 po TID PRN IBUPROFEN 600 MG TAB 793746 IBUPROFEN Inactive VYVANSE 40 MG CAPS 1 daily, VYVANSE 40 MG CAPS LISDEXAMFETAMINE DIMESYLATE Inactive TRAZODONE HCL 100 MG TAB take 1 at bedtime TRAZODONE HCL 100 MG TAB 248888 TRAZODONE HCL Inactive AMITRIPTYLINE HCL 100 MG TAB one at hs AMITRIPTYLINE HCL 100 MG TAB 067615 AMITRIPTYLINE HCL Inactive AMLODIPINE BESYLATE 5 MG TABS 1 tablet by mouth daily AMLODIPINE BESYLATE 5 MG TABS 910904 AMLODIPINE BESYLATE Inactive LATUDA 80 MG TABS Take one by mouth daily LATUDA 80 MG TABS LURASIDONE HCL Inactive SAPHRIS 5 MG SUBL 1 po bid SAPHRIS 5 MG SUBL ASENAPINE MALEATE Inactive PREDNISONE 20 MG TAB 2 tabs daily for 4 days, 1 tab daily for 4 days, 1/2 tab daily for 4 days PREDNISONE 20 MG TAB 584697 PREDNISONE Inactive AMBIEN 5 MG ORAL TABS 1 tab at bedtime AMBIEN 5 MG ORAL TABS 679992 ZOLPIDEM TARTRATE Inactive PROZAC 20 MG ORAL CAPS 1 tab daily PROZAC 20 MG ORAL CAPS 995178 FLUOXETINE HCL Inactive ABILIFY 15 MG ORAL TABS 1 tab daily ABILIFY 15 MG ORAL TABS 883131 ARIPIPRAZOLE Inactive METOPROLOL TARTRATE 50 MG TAB 1 po bid METOPROLOL TARTRATE 50 MG TAB 778290 METOPROLOL TARTRATE Inactive TRAMADOL HCL 50 MG TABS 1-2 po TID PRN Pain TRAMADOL HCL 50 MG TABS 787242 TRAMADOL HCL Inactive PIROXICAM 20 MG CAPS 1 cap po qd PRN Pain PIROXICAM 20 MG CAPS 432798 PIROXICAM Inactive MINIPRESS 2 MG CAPS 4 cap po at night MINIPRESS 2 MG CAPS 630782 PRAZOSIN HCL Inactive MIRALAX PACK 1 po qd PRN Constipation MIRALAX PACK 321106 POLYETHYLENE GLYCOL 3350 Inactive METOPROLOL TARTRATE 25 MG ORAL TABS 1/2 tablet twice daily for heart rate and blood pressure METOPROLOL TARTRATE 25 MG ORAL TABS 622382 METOPROLOL TARTRATE Inactive VALIUM 5 MG TAB Take 1-2 tablets daily VALIUM 5 MG TAB 575726 DIAZEPAM Inactive FLAGYL 500 MG TAB 1 tablet by mouth bid FLAGYL 500 MG TAB 381078 METRONIDAZOLE Inactive DICLOFENAC POTASSIUM TABS Take 1 tablet twice a day (pt. is not sure of the dose.) DICLOFENAC POTASSIUM TABS DICLOFENAC POTASSIUM TABS Inactive ZITHROMAX Z-EARNEST 250 MG TABS 2 today and then 1 daily for 4 days ZITHROMAX Z-EARNEST 250 MG TABS 1624919 AZITHROMYCIN Inactive PREDNISONE 20 MG TABS 2 daily for 5 days then 1 daily for 5 days PREDNISONE 20 MG TABS 987570 PREDNISONE Inactive PROAIR HFA 108 (90 BASE) MCG/ACT AERS 2 puffs four times a day as needed 2015 PROAIR HFA 108 (90 BASE) MCG/ACT AERS ALBUTEROL SULFATE Inactive HYDROCODONE-ACETAMINOPHEN 5-325 MG TABS 1 to 2 four times a day as needed for pain use until can be seen by specialist HYDROCODONE- ACETAMINOPHEN 5-325 MG TABS 354007 HYDROCODONE-ACETAMINOPHEN Inactive TESSALON PERLES 100 MG CAP 1 to 2 tablets by mouth 3 times daily as needed for cough TESSALON PERLES 100 MG CAP 612922 BENZONATATE Inactive CHANTIX STARTING MONTH EARNEST 0.5 [...] Pain 2015 DICLOFENAC SODIUM 50 MG TBEC 071300 DICLOFENAC SODIUM Inactive TOPAMAX 50 MG ORAL TABS 1 tab twice daily TOPAMAX 50 MG ORAL TABS 623060 TOPIRAMATE Inactive VIIBRYD 10 MG ORAL TABS Take 1 tablet once a day VIIBRYD 10 MG ORAL TABS VILAZODONE HCL Inactive LEVOFLOXACIN 500 MG ORAL TABS po daily LEVOFLOXACIN 500 MG ORAL TABS 193239 LEVOFLOXACIN Inactive METHYLPREDNISOLONE 4 MG ORAL TABS po daily METHYLPREDNISOLONE 4 MG ORAL TABS 080805 METHYLPREDNISOLONE Inactive OXYCODONE HCL ER 10 MG ORAL T12A 1/2 tab by mouth every 4 hours prn OXYCODONE HCL ER 10 MG ORAL T12A OXYCODONE HCL Inactive FLAGYL 500 MG TAB 1 tablet by mouth bid FLAGYL 500 MG TAB 977366 METRONIDAZOLE Inactive MONISTAT 7 COMBO PACK WOODROW 100 & 2 MG-% (9GM) VAG KIT 1 applicatorful per vagina q pm x 7 MONISTAT 7 COMBO PACK WOODROW 100 & 2 MG-% (9GM) VAG KIT MICONAZOLE NITRATE Inactive BACTRIM DS 800-160 MG TABS 1 twice a day BACTRIM DS 800-160 MG TABS 398563 SULFAMETHOXAZOLE-TRIMETHOPRIM Inactive TRAMADOL HCL 50 MG TABS 1/2-1 tab TID PRN TRAMADOL HCL 50 MG TABS 890643 TRAMADOL HCL Inactive ABILIFY MAINTENA 400 MG IM SUSR 400mg injection every 26 days ABILIFY MAINTENA 400 MG IM SUSR ARIPIPRAZOLE Inactive KLONOPIN 1 MG ORAL TABS 1 tab po TID KLONOPIN 1 MG ORAL TABS 614572 CLONAZEPAM Inactive ADVAIR DISKUS 250-50 MCG/DOSE INH AEPB 1 puff twice a day for asthma ADVAIR DISKUS 250-50 MCG/DOSE INH AEPB FLUTICASONE- SALMETEROL Inactive BENADRYL 25 MG CAP 4 po at bedtime for insomnia BENADRYL 25 MG CAP DIPHENHYDRAMINE HCL Inactive PREDNISONE 20 MG TABS 2 daily for 5 days then 1 daily for 5 days PREDNISONE 20 MG TABS 648446 PREDNISONE Inactive HYDROCODONE-ACETAMINOPHEN 5-325 MG ORAL TABS 1 tab two times a day HYDROCODONE-ACETAMINOPHEN 5-325 MG ORAL TABS 678532 HYDROCODONE-ACETAMINOPHEN Inactive ZITHROMAX Z-EARNEST 250 MG TABS 2 today and then 1 daily for 4 days ZITHROMAX Z-EARNEST 250 MG TABS 5423631 AZITHROMYCIN Inactive GUAIFENESIN-CODEINE 100-10 MG/5ML SYRP 5ml every 4 to 6 hours as needed for cough GUAIFENESIN-CODEINE 100-10 MG/5ML SYRP 695941 GUAIFENESIN-CODEINE Inactive HALOPERIDOL 10 MG ORAL TABS 1 tab q.d HALOPERIDOL 10 MG ORAL TABS 358913 HALOPERIDOL Inactive ASPIRIN 325 MG ORAL TABS 1 tab q.d ASPIRIN 325 MG ORAL TABS 243944 ASPIRIN Inactive FLUTICASONE PROPIONATE 50 MCG/ACT SUSP 2 sprays each nostril daily before bed. FLUTICASONE PROPIONATE 50 MCG/ACT SUSP 5302351 FLUTICASONE PROPIONATE Inactive ZOFRAN 4 MG TABS 1 po q6hr PRN Nausea ZOFRAN 4 MG TABS 306529 ONDANSETRON HCL Inactive KEFLEX 500 MG CAP 1 po qid KEFLEX 500 MG CAP 848607 CEPHALEXIN Inactive ACETAMINOPHEN-CODEINE 120-12 MG/5ML SOLN 5 ml by mouth every 4-6 hours if needed for cough ACETAMINOPHEN-CODEINE 120-12 MG/5ML SOLN 607725 ACETAMINOPHEN-CODEINE Inactive PREDNISONE 20 MG TAB 1 tablet daily x 4 days PREDNISONE 20 MG TAB 780123 PREDNISONE Inactive TROPICAMIDE 0.5 % OPHTH SOLN 1 drop PRN eye spasms TROPICAMIDE 0.5 % [facility] 972048 TROPICAMIDE Inactive LEVAQUIN 500 MG TABS 1 daily for infection LEVAQUIN 500 MG TABS 776653 LEVOFLOXACIN Inactive PREDNISONE 10 MG TABS 2 daily for 5 days then 1 daily for 5 days PREDNISONE 10 MG TABS 519220 PREDNISONE Inactive EQ NICOTINE 21 MG/24HR TRANS [...] for cough TESSALON PERLES 100 MG CAPS 594607 BENZONATATE Inactive CEFDINIR 300 MG CAPS by mouth twice a day CEFDINIR 300 MG CAPS 186996 CEFDINIR Inactive PREDNISONE 20 MG TAB 2 tabs daily for 3 days, 1 tab daily for 3 days, 1/2 tab daily for 2 days PREDNISONE 20 MG TAB 191116 PREDNISONE Inactive BACTRIM DS 800-160 MG TABS [...] x 10 days KEFLEX 500 MG CAP 119452 CEPHALEXIN Inactive Advance Directives Directive Description Start [...] % 11.0-15.0 platelet count 443 THOUSAND/UL 10*3/mm3 937-605 7640/03/01 mean platelet volume 8.2 fL 7.5-12.5 leukocyte [...] % 11.0-15.0 platelet count 349 THOUSAND/UL 10*3/mm3 668-500 5468/04/12 mean platelet volume 8.4 fL 7.5-12.5 Lab [...] 369 10^3/MM^3 10*3/mm3 142-424 Lab Report: Chlamydia/GC [id number]/[id number] - Lab chlamydia DNA probe NOT DETECTED NOT DETECTED Lab Report: Chlamydia/GC APTIMA/[id number] - Microbiology Neisseria gonorrhoeae DNA probe NOT DETECTED NOT DETECTED Lab Report: Chlamydia/GC APTIMA/[id number], Urinalysis, Complete, with Reflex ... - Lab chlamydia DNA probe NOT DETECTED NOT DETECTED Lab Report: Chlamydia/GC APTIMA/[id number], Urinalysis, Complete, with Reflex ... - Microbiology Neisseria gonorrhoeae DNA probe NOT DETECTED NOT DETECTED Lab Report: Chlamydia/GC APTIMA/[id number], Urinalysis, Complete, with Reflex ... - Urinalysis microalbumin/total urine volume 2 mg/L Units converted. See lab report for original value. microalbumin/creatinine ratio, urine 9 MCG/MG CREAT mg/L <30 Lab Report: Comp. Metabolic Panel - Chemistry sodium, serum 142 mmol/L 017-353 4305/06/08 carbon dioxide, venous blood 27.6 mmol/L 21.0-32.0 potassium, serum 4.0 mmol/L 3.5-5.2 chloride, serum 105 mmol/L 98-107 blood glucose 95 mg/dL 65-110 urea nitrogen, blood 8 mg/dL 7-18 creatinine, serum 0.75 mg/dL 0.55-1.30 alanine aminotransferase (SGPT), serum 49 U/L 12-78 aspartate aminotransferase (SGOT), serum 28 U/L 15-37 calcium, serum 9.4 mg/dL 8.5-10.1 bilirubin, serum, total 0.30 mg/dL 0.00-1.00 sodium, serum 140 mmol/L 112-277 0033/08/08 carbon dioxide, venous blood 33.7 mmol/L 21.0-32.0 [...] mg/dL Encounters Code Encounter Date Provider Facility CPT-98696 Level 3 Est. Patient 10:00:25 CDT Suzan Boo [facility] [place] CPT-18582 Level 3 Est. Patient 10:29:30 CDT Suzan Boo [facility] [place] CPT-83882 Level 3 Est. Patient 11:04:38 CDT Renzo Thornton [facility] CPT-26735 Level 3 Est. Patient 11:15:58 ASSOCIATE ENGINEER Renzo Thornton [facility] CPT-72808 Level 3 Est. Patient 15:28:23 ASSOCIATE ENGINEER Suzan Boo [facility] [place] CPT-48634 Level 4 Est. Patient 10:20:54 ASSOCIATE ENGINEER Suzan Boo [facility] [place] CPT-58463 Level 3 Est. Patient 11:47:37 ASSOCIATE ENGINEER Ahmet Carbajal MD [facility] CPT-60099 Level 3 Est. Patient 10:40:11 ASSOCIATE ENGINEER Ahmet Carbajal MD [facility] CPT-30161 Level 3 Est. Patient 15:07:06 ASSOCIATE ENGINEER Neeraj Collins MD [facility] CPT-03567 Level 4 Est. Patient 14:45:00 ASSOCIATE ENGINEER Ahmet Carbajal MD [facility] CPT-43411 Level 3 Est. Patient 13:59:59 CDT Luigi Martínez [facility] [place] CPT-03424 Level 3 Est. Patient 18:18:53 CDT Neeraj Collins MD [facility] CPT-77709 Level 3 Est. Patient 15:50:44 CDT Vishal Hui MD [facility] CPT-92859 Level 3 Est. Patient 11:36:17 CDT Ahmet Carbajal MD [facility] CPT-52364 Level 3 Est. Patient 13:29:16 CDT Vishal Hui MD [facility] CPT-67160 Level 3 Est. Patient 14:27:52 CDT Neeraj Collins MD [facility] CPT-38631 Level 3 Est. Patient 08:56:03 CDT Luigi Martínez [facility] [place] CPT-65954 Level 4 Est. Patient 12:11:48 CDT Fabiola Johnson [facility] [place] CPT-18534 Level 3 New Patient 16:53:37 CDT Albert Caldera MD [facility] CPT-12393 Level 3 Est. Patient 11:25:49 CDT Renzo Thornton DO [facility] CPT-12105 Level 3 Est. Patient 15:22:01 CDT Ahmet Carbajal MD [facility] CPT-08743 Level 4 Est. Patient 09:00:51 ASSOCIATE ENGINEER Vishal Hui MD [facility] CPT-49057 Level 3 Est. Patient 11:37:33 ASSOCIATE ENGINEER Vishal Hui MD [facility] CPT-62519 Level 3 Est. Patient 08:41:09 ASSOCIATE ENGINEER Vishal Hui MD [facility] CPT-48266 Level 4 Est. Patient 10:19:35 ASSOCIATE ENGINEER Vishal Hui MD [facility] CPT-91722 Level 3 Est. Patient 13:35:45 CDT Vishal Hui MD [facility] CPT-21559 Level 4 Est. Patient 10:08:37 CDT Vishal Hui MD [facility] [place]-67404 Level 3 Est. Patient 11:22:10 CDT Vishal Hui MD [facility] CPT-68473 Level 3 Est. Patient 11:03:32 CDT Sahara Rodriguez MD [facility]-42199 Level 3 Est. Patient 09:41:35 CDT Vishal Hui MD [facility] CPT-92891 Level 3 Est. Patient 12:00:41 CDT Neeraj Collins MD [facility] [place]-95418 Level 3 Est. Patient 09:16:24 CDT Vishal Hui MD [facility] CPT-63279 Level 4 Est. Patient 13:59:09 CDT Neeraj Collins MD [facility] CPT-12819 Level 3 Est. Patient 15:19:43 CDT Renzo Thornton DO [facility] CPT-10280 Level 3 Est. Patient 18:10:26 CDT Sahara Rodriguez MD [facility]-54206 Level 3 Est. Patient 14:49:50 CDT Vishal Hui MD [facility] CPT-93466 Level 4 Est. Patient 18:41:46 CDT Neeraj Collins MD [facility] CPT-07319 Level 4 Est. Patient 09:18:38 ASSOCIATE ENGINEER Vishal Hui MD [facility]-20331 Level 3 Est. Patient 14:43:55 ASSOCIATE ENGINEER Vishal Hui MD [facility] CPT-53671 Level 3 Est. Patient 15:26:33 ASSOCIATE ENGINEER Sahara Rodriguez MD [facility]-89587 Level 3 Est. Patient 10:32:14 ASSOCIATE ENGINEER Vishal Hui MD [facility] CPT-81674 Level 3 Est. Patient 15:12:52 ASSOCIATE ENGINEER Vishal Hui MD [facility] CPT-68929 Level 4 Est. Patient 09:19:27 CDT Vishal Hui MD [facility] CPT-07739 Level 3 Est. Patient 15:53:00 CDT Renzo Thornton [facility] CPT-93490 Level 3 Est. Patient 15:50:30 CDT Renzo Thornton [facility] CPT-04966 Level 3 Est. Patient 16:55:24 CDT Vishal Hui MD [facility] Procedures Code Procedure Name Date Entry Date Standard Description CPT-50961 Venipuncture Draw Fee 08:41:12 CDT CPT-60137 Abd compl w upright - XRAY USE ONLY 10:27:59 CDT 06/28 CPT-23243 Smoking Cessation counseling 11:15:58 ASSOCIATE ENGINEER CPT-G0439 [facility] Annual Wellness Exam 09:30:58 ASSOCIATE ENGINEER CPT-39585 TSH - LAB USE ONLY 08:50:26 ASSOCIATE ENGINEER CPT-21260 CBC - LAB USE ONLY 08:50:26 ASSOCIATE ENGINEER CPT-87251 Venipuncture Draw Fee 08:50:26 ASSOCIATE ENGINEER CPT-44018 Abx/Therapy Injection 17:34:30 ASSOCIATE ENGINEER CPT-95137 Nexplanon Removal with Reinsertion 14:09:32 CDT CPT-J7307 Nexplanon (Implant) 14:09:32 CDT CPT-OV Office Visit 14:09:32 CDT CPT-33336 UA w micro - LAB USE ONLY 16:21:13 CDT CPT-32820 Wet Mount - LAB USE ONLY 16:21:13 CDT CPT-74571 First Vx - Ix admin for Medicare patients 14:37:47 CDT CPT-73594 Fluzone Preservative Free Intramuscular Suspension 14:37 :47 CDT CPT-93423 Abx/Therapy Injection 13:54:22 CDT CPT-79845 Abx/Therapy Injection 08:47:09 CDT CPT-99206 Abx/Therapy Injection 13:29:56 CDT CPT-69114 Abx/Therapy Injection 08:36:16 CDT CPT-78203 Wet Mount - LAB USE ONLY 17:44:58 CDT CPT-76749 UA w micro - LAB USE ONLY 17:44:58 CDT CPT-18536 CMP - LAB USE ONLY 17:44:58 CDT CPT-67551 Venipuncture Draw Fee 17:44:58 CDT CPT-13751 Cervical Min 4V - XRAY USE ONLY 09:01:40 CDT CPT-17212 Chest 2V Frontal and Lat - XRAY USE ONLY 11:06:31 CDT CPT-32144 EKG Trac and Interp - XRAY USE ONLY 11:31:43 CDT 08/26 CPT-J3420 Vitamin B12 1000mcg (Cyanocobalamin) 08:10:26 ASSOCIATE ENGINEER 04/12 CPT-41539 Abx/Therapy Injection 08:10:26 ASSOCIATE ENGINEER CPT-G0438 Initial Annual Wellness Exam 19:01:01 ASSOCIATE ENGINEER CPT-J3420 Vitamin B12 1000mcg (Cyanocobalamin) 16:57:46 CDT 08/14 CPT-66655 Recombivax HB Injection Suspension 5 MCG/0.5ML 08:37:50 ASSOCIATE ENGINEER CPT-25654 Immunization Single Admin 08:37:50 ASSOCIATE ENGINEER CPT-J3420 Vitamin B12 1000mcg (Cyanocobalamin) 08:32:16 ASSOCIATE ENGINEER 03/11 CPT-37962 Abx/Therapy Injection 08:32:16 ASSOCIATE ENGINEER CPT-74817 Chest 2V Frontal and Lat 11:46:38 ASSOCIATE ENGINEER CPT-47610 Venipuncture Draw Fee 09:12:45 ASSOCIATE ENGINEER CPT-J3420 Vitamin B12 1000mcg (Cyanocobalamin) 08:50:15 ASSOCIATE ENGINEER 02/08 CPT-23374 Abx/Therapy Injection 08:50:15 ASSOCIATE ENGINEER CPT-Cryo Cryotherapy 10:19:35 ASSOCIATE ENGINEER CPT-000 Give Appropriate Flu Vaccine 09:22:16 CDT CPT-J3420 Vitamin B12 1000mcg (Cyanocobalamin) 19:08:57 CDT 01/11 CPT-55271 Abx/Therapy Injection 19:08:57 CDT CPT-J3420 Vitamin B12 1000mcg (Cyanocobalamin) 08:19:08 CDT 12/11 CPT-81629 Abx/Therapy Injection 08:19:08 CDT CPT-J3420 Vitamin B12 1000mcg (Cyanocobalamin) 14:48:00 CDT 11/09 CPT-31024 Abx/Therapy Injection 14:47:59 CDT CPT-J3420 Vitamin B12 1000mcg (Cyanocobalamin) 08:34:04 CDT 10/09 CPT-32457 Abx/Therapy Injection 08:34:04 CDT CPT-J3420 Vitamin B12 1000mcg (Cyanocobalamin) 09:18:52 CDT 09/11 CPT-03199 Abx/Therapy Injection 09:18:52 CDT CPT-J3420 Vitamin B12 1000mcg (Cyanocobalamin) 08:35:44 CDT 09/04 CPT-31694 Abx/Therapy Injection 08:35:44 CDT CPT-28590 Immunization Single Admin 11:07:16 CDT CPT-74390 Hepatitis B adult IM 11:07:16 CDT CPT-J3420 Vitamin B12 1000mcg (Cyanocobalamin) 11:00:49 CDT 08/28 CPT-J1040 Depo Medrol 80 mg (Methyl Prednisolone Acetate) 11:00: 49 CDT CPT-96836 Abx/Therapy Injection 11:00:49 CDT CPT-J1040 Depo Medrol 80 mg (Methyl Prednisolone Acetate) 09:16: 23 CDT CPT-J3420 Vitamin B12 1000mcg (Cyanocobalamin) 08:27:05 CDT 08/20 CPT-79003 Abx/Therapy Injection 08:27:05 CDT CPT-43397 Recombivax HB Injection Suspension 5 MCG/0.5ML 10:00:41 CDT CPT-16705 Administration single or combination vaccine inc oral 10 :00:41 CDT CPT-73465 Sono transvag pelvis non OB uterus ovaries cervix 16:36: 57 CDT CPT-46634 LS spine comp w obliq 09:50:55 ASSOCIATE ENGINEER CPT-26183 Abd compl w upright 09:50:55 ASSOCIATE ENGINEER CPT-J1100 Decadron 4mg (Dexamethasone) 15:51:24 ASSOCIATE ENGINEER CPT-J1030 Depo Medrol 40 mg (Methyl Prednisolone Acetate) 15:51: 24 ASSOCIATE ENGINEER CPT-37921 Abx/Therapy Injection 15:51:24 ASSOCIATE ENGINEER CPT-J1100 Decadron 4mg (Dexamethasone) 15:26:33 ASSOCIATE ENGINEER CPT-J1030 Depo Medrol 40 mg (Methyl Prednisolone Acetate) 15:26: 33 ASSOCIATE ENGINEER CPT-03792 Sono retroperitoneal complete kidneys and bladder 17:15: 30 CDT CPT-84966 Abd compl w upright 16:09:25 CDT CPT-J1100 Decadron 8mg (Dexamethasone) 17:07:57 CDT CPT-91849 Abx/Therapy Injection 17:07:57 CDT CPT-J1100 Decadron 8mg (Dexamethasone) 16:55:24 CDT CPT-40628 Chest 2V Frontal and Lat 16:32:44 CDT
--- OUTSIDE RECORDS SUMMARY | 2016-11-04 18:56 | XMS REPORT | Clinical Summary ---
Author Author Admin, E Organization [employer] Address Unknown Phone Unavailable Allergies, Adverse Reactions, [...] Active Ahmet Carbajal MD Generalized anxiety disorder Bed Rubber well woman exam V72.31 Active Suzan Boo [...] 4-6 hours if needed for cough ACETAMINOPHEN-CODEINE 63553325127 Active Renzo Thornton DO Active PREDNISONE 20 MG TAB 1 tablet daily x 4 days PREDNISONE 97796050184 Active Renzo Thornton DO Active FLOVENT HFA 110 MCG/ACT AERO 2 puffs inhaled b.i.d. FLUTICASONE PROPIONATE HFA 22419519594 Active Renzo Thornton DO Active TROPICAMIDE 0.5 % OPHTH SOLN 1 drop PRN eye spasms TROPICAMIDE 97434676246 Active Samantha Stephan RMA Active RISPERDAL 4 MG ORAL TABS 1 tab at bedtime RISPERIDONE 83747125383 Active Samantha Stephan RMA Active LEVAQUIN 500 MG TABS 1 daily for infection LEVOFLOXACIN 84705485962 Active Suzan Boo APRN Active TESSALON PERLES 100 MG CAPS 1 three times a day as needed for cough BENZONATATE 33251598828 Active Suzan Boo APRN Active ZOFRAN 4 MG TABS 1 po q6hr PRN Nausea ONDANSETRON HCL No Longer Active Suzan Boo APRN Active FLUTICASONE PROPIONATE 50 MCG/ACT SUSP 2 sprays each nostril daily before bed. FLUTICASONE PROPIONATE 39423074612 No Longer Active Suzan Boo APRN Active ASPIRIN 325 MG ORAL TABS 1 tab q.d ASPIRIN 24534520408 No Longer Active Suzan Boo APRN Active HALOPERIDOL 10 MG ORAL TABS 1 tab q.d HALOPERIDOL 77404828948 No Longer Active Suzan Boo APRN Active GUAIFENESIN-CODEINE 100-10 MG/5ML SYRP 5ml every 4 to 6 hours as needed for cough GUAIFENESIN-CODEINE 29351647494 No Longer Active Suzan Boo APRN Active ZITHROMAX Z-EARNEST 250 MG TABS 2 today and then 1 daily for 4 days AZITHROMYCIN 76667331603 No Longer Active Suzan Boo APRN Active PREDNISONE 10 MG TABS 2 daily for 5 days then 1 daily for 5 days PREDNISONE 45247295226 Active Suzan Boo APRN Active CLONAZEPAM 1 MG ORAL TABS 1 twice a day and an additional 1 tablet every other day as needed for pseudoseizures or anxiety CLONAZEPAM 26545698096 Active Ahmet Carbajal MD Active HYDROCODONE-ACETAMINOPHEN 5-325 MG ORAL TABS 1 tab two times a day HYDROCODONE-ACETAMINOPHEN 31325333987 No Longer Active Ahmet Carbajal MD Active LAMICTAL 100 MG ORAL TABS 1 tab 2 times qd. LAMOTRIGINE 34890469735 Active Ahmet Carbajal MD Active PREDNISONE 20 MG TABS 2 daily for 5 days then 1 daily for 5 days PREDNISONE 24920984585 No Longer Active Ahmet Carbajal MD Active FLUTICASONE PROPIONATE 50 MCG/ACT SUSP 1 to 2 sprays each nostril daily for allergies FLUTICASONE PROPIONATE 96320013475 Active Tila Valenzuela Active BENADRYL 25 MG CAP 4 po at bedtime for insomnia DIPHENHYDRAMINE HCL 35945221640 No Longer Active Ahmet Carbajal MD Active ADVAIR DISKUS 250-50 MCG/DOSE INH AEPB 1 puff twice a day for asthma FLUTICASONE-SALMETEROL 94889331551 No Longer Active Ahmet Carbajal MD Active KLONOPIN 1 MG ORAL TABS 1 tab po TID CLONAZEPAM 11802994840 No Longer Active Ahmet Carbajal MD Active ABILIFY MAINTENA 400 MG IM SUSR 400mg injection every 26 days ARIPIPRAZOLE 31423277086 No Longer Active Ahmet Carbajal MD Active TRAMADOL HCL 50 MG TABS 1/2-1 tab TID PRN TRAMADOL HCL 91981120086 No Longer Active Ahmet Carbajal MD Active BACTRIM DS 800-160 MG TABS 1 twice a day SULFAMETHOXAZOLE- TRIMETHOPRIM 26386431828 No Longer Active Ahmet Carbajal MD Active PROAIR HFA 108 (90 BASE) MCG/ACT AERS 2 puffs four times a day as needed 2015 ALBUTEROL SULFATE 03968238475 Active Ahmet Carbajal MD Active EQ NICOTINE 21 MG/24HR TRANS PT24 Apply daily to stop smoking NICOTINE 06757693820 Active Ahmet Carbajal MD Active MONISTAT 7 COMBO PACK WOODROW 100 & 2 MG-% (9GM) VAG KIT 1 applicatorful per vagina q pm x 7 MICONAZOLE NITRATE 39913337466 No Longer Active Ahmet Carbajal MD Active FLAGYL 500 MG TAB 1 tablet by mouth bid METRONIDAZOLE 00583759543 No Longer Active Ahmet Carbajal MD Active OXYCODONE HCL ER 10 MG ORAL T12A 1/2 tab by mouth every 4 hours prn OXYCODONE HCL 78970081350 No Longer Active Ahmet Carbajal MD Active METHYLPREDNISOLONE 4 MG ORAL TABS po daily METHYLPREDNISOLONE 78411263934 No Longer Active Ahmet Carbajal MD Active LEVOFLOXACIN 500 MG ORAL TABS po daily LEVOFLOXACIN 07254411582 No Longer Active Ahmet Carbajal MD Active VIIBRYD 10 MG ORAL TABS Take 1 tablet once a day VILAZODONE HCL 60815282386 No Longer Active Ahmet Carbajal MD Active TOPAMAX 50 MG ORAL TABS 1 tab twice daily TOPIRAMATE 80164378017 No Longer Active Ahmet Carbajal MD Active DICLOFENAC SODIUM 50 MG TBEC 1 tablet by mouth four times daily PRN Pain 2015 DICLOFENAC SODIUM 33366216073 No Longer Active Ahmet Carbajal MD Active ADZENYS XR-ODT 6.3 MG ORAL TBED 1 tab po daily for ADHD AMPHETAMINE 30046278387 No Longer Active Ahmet Carbajal MD Active CHANTIX 1 MG TABS 1 twice a day to help quit smoking VARENICLINE TARTRATE 51473135439 No Longer Active Dipika Burgos MD Active CHANTIX STARTING MONTH EARNEST 0.5 MG X 11 & 1 MG X 42 TABS take as directed 2015 VARENICLINE TARTRATE 28524896125 No Longer Active Dipika Burgos MD Active TESSALON PERLES 100 MG CAP 1 to 2 tablets by mouth 3 times daily as needed for cough BENZONATATE 76592050248 No Longer Active Luigi Martínez APRN Active IMITREX 50 MG ORAL TABS 0.5 po x 1 PRN Headache. May repeat dose x 1 in 2 hours if needed SUMATRIPTAN SUCCINATE 35966951427 Active Ahmet Carbajal MD Active HYDROCODONE-ACETAMINOPHEN 5-325 MG TABS 1 to 2 four times a day as needed for pain use until can be seen by specialist HYDROCODONE- ACETAMINOPHEN 48305110658 No Longer Active Vishal Hui MD Active PROAIR HFA 108 (90 BASE) MCG/ACT AERS 2 puffs four times a day as needed 2015 ALBUTEROL SULFATE 66460754117 No Longer Active Vishal Hui MD Active PREDNISONE 20 MG TABS 2 daily for 5 days then 1 daily for 5 days PREDNISONE 75005396431 No Longer Active Vishal Hui MD Active ZITHROMAX Z-EARNEST 250 MG TABS 2 today and then 1 daily for 4 days AZITHROMYCIN 20719784960 No Longer Active Vishal Hui MD Active DICLOFENAC POTASSIUM TABS Take 1 tablet twice a day (pt. is not sure of the dose.) DICLOFENAC POTASSIUM TABS 09458045995 No Longer Active Vishal Hui MD Active VERAPAMIL HCL ER 120 MG ORAL CR-TABS Take 1 tablet by mouth twice a day. VERAPAMIL HCL 16104883160 Active Vishal Hui MD Active FLAGYL 500 MG TAB 1 tablet by mouth bid METRONIDAZOLE 88799308575 No Longer Active Vishal Hui MD Active VALIUM 5 MG TAB Take 1-2 tablets daily DIAZEPAM 45757005549 No Longer Active Fabiola Johnson APRN Active METOPROLOL TARTRATE 25 MG ORAL TABS 1/2 tablet twice daily for heart rate and blood pressure METOPROLOL TARTRATE 64368939961 No Longer Active Fabiola Johnson APRN Active MIRALAX ORAL POWD 17GMS DAILY IN WATER POLYETHYLENE GLYCOL 3350 73825067025 Active TAMARA Casey Active MIRALAX PACK 1 po qd PRN Constipation POLYETHYLENE GLYCOL 3350 73367433530 No Longer Active Ahmet Carbajal MD Active MINIPRESS 2 MG CAPS 4 cap po at night PRAZOSIN HCL 57064071457 No Longer Active Ahmet Carbajal MD Active PIROXICAM 20 MG CAPS 1 cap po qd PRN Pain PIROXICAM 06021879842 No Longer Active Ahmet Carbajal MD Active TRAMADOL HCL 50 MG TABS 1-2 po TID PRN Pain TRAMADOL HCL 58574470757 No Longer Active Ahmet Carbajal MD Active METOPROLOL TARTRATE 50 MG TAB 1 po bid METOPROLOL TARTRATE 80270084316 No Longer Active Ahmet Carbajal MD Active ABILIFY 15 MG ORAL TABS 1 tab daily ARIPIPRAZOLE 05739445339 No Longer Active Ahmet Carbajal MD Active PROZAC 20 MG ORAL CAPS 1 tab daily FLUOXETINE HCL 13651203391 No Longer Active Ahmet Carbajal MD Active AMBIEN 5 MG ORAL TABS 1 tab at bedtime ZOLPIDEM TARTRATE 22679140309 No Longer Active Ahmet Carbajal MD Active PREDNISONE 20 MG TAB 2 tabs daily for 4 days, 1 tab daily for 4 days, 1/2 tab daily for 4 days PREDNISONE 30790876751 No Longer Active Ahmet Carbajal MD Active KEFLEX 500 MG CAP 1 po TID x 10 days CEPHALEXIN 28275460977 No Longer Active Vishal Hui MD Active SAPHRIS 5 MG SUBL 1 po bid ASENAPINE MALEATE 83601811315 No Longer Active Jillina Frazell PLATE STRAIGHTENER Active LATUDA 80 MG TABS Take one by mouth daily LURASIDONE HCL 89471949469 No Longer Active Jillina Frazell PLATE STRAIGHTENER Active AMLODIPINE BESYLATE 5 MG TABS 1 tablet by mouth daily AMLODIPINE BESYLATE 65628939303 No Longer Active Jillina Fradwightl PLATE STRAIGHTENER Active AMITRIPTYLINE HCL 100 MG TAB one at hs AMITRIPTYLINE HCL 67058140556 No Longer Active Vishal Hui MD Active TRAZODONE HCL 100 MG TAB take 1 at bedtime TRAZODONE HCL 05102577758 No Longer Active Vishal Hui MD Active VYVANSE 40 MG CAPS 1 daily, LISDEXAMFETAMINE DIMESYLATE 20744144682 No Longer Active Vishal Hui MD Active IBUPROFEN 600 MG TAB 1 po TID PRN IBUPROFEN 76471322481 No Longer Active Vishal Hui MD Active PROZAC 20 MG CAP Take one by mouth daily FLUOXETINE HCL 29962373051 No Longer Active Vishal Hui MD Active BACTRIM DS 800-160 MG TABS 1 pill by mouth twice daily SULFAMETHOXAZOLE-TRIMETHOPRIM 25545026363 No Longer Active Sahara Rodriguez MD PhD Active DIFLUCAN 150 MG TAB 1 tablet by mouth daily FLUCONAZOLE 03079750281 No Longer Active Vishal Hui MD Active TIZANIDINE HCL 4 MG TABS 1 po q6hr PRN Muscle Spasm/Back Pain TIZANIDINE HCL 83238221527 Active Vishal Hui MD Active CLINDAMYCIN HCL 150 MG CAPS 1 four times a day CLINDAMYCIN HCL 40618071431 No Longer Active Neeraj Collins MD Active KEFLEX 500 MG ORAL CAPS 1 cap QID by mouth CEPHALEXIN 17710482926 No Longer Active Neeraj Collins MD Active DIFLUCAN 150 MG TABS 1 pill every other day x 2 doses FLUCONAZOLE 20181169092 No Longer Active Sahara Rodriguez MD PhD Active MELATONIN 3 MG CAPS 2 po q hs MELATONIN 72298573984 No Longer Active Sahara Rodriguez MD PhD Active MULTIVITAMINS CAPS Take one by mouth daily MULTIPLE VITAMIN 17125969631 No Longer Active Sahara Rodriguez MD PhD Active BACTRIM DS 800-160 MG TAB 1 tab by mouth twice daily TRIMETHOPRIM-SULFAMETHOXAZOLE 68125540345 No Longer Active Sahara Rodriguez MD PhD Active [facility] PROBIOTIC ORAL CHEW 2 daily po PROBIOTIC PRODUCT 57660150510 No Longer Active Sahara Rodriguez MD PhD Active BACTRIM DS 800-160 MG TABS 1 po BID x 7 days SULFAMETHOXAZOLE-TRIMETHOPRIM 48377143567 No Longer Active Vishal Hui MD Active CHANTIX STARTING MONTH EARNEST 0.5 MG X 11 & 1 MG X 42 TABS 0.5mg daily for 3 days , then 0.5mg BID for 4 days, then 1mg BID VARENICLINE TARTRATE 84451147658 No Longer Active TAMARA Gray Active VERAPAMIL HCL CR 120 MG TAB CR 1 po bid VERAPAMIL HCL 23910468067 No Longer Active Vishal Hui MD Active METOPROLOL SUCCINATE 50 MG TB24 1 tablet by mouth daily METOPROLOL SUCCINATE 36073880124 No Longer Active Vishal Hui MD Active SAPHRIS 10 MG SUBL 1 tab po bid ASENAPINE MALEATE 53022883299 No Longer Active Vishal Hui MD Active LISINOPRIL 20 MG TABS 1 tab po qd LISINOPRIL 15421110303 No Longer Active Vishal Hui MD Active LATUDA 20 MG TABS Take one by mouth daily LURASIDONE HCL 26678516999 No Longer Active Vishal Hui MD Active TRAZODONE HCL 50 MG TABS 1/2 tab po qd prn for anxiety TRAZODONE HCL 27591020992 No Longer Active Vishal Hui MD Active OMEPRAZOLE 20 MG TBEC 1 po q a.m. 30min prior to first food intake OMEPRAZOLE 42467020844 Active TAMARA Casey Active RANITIDINE HCL 150 MG CAPS 1 twice a day RANITIDINE HCL 91058356908 Active Jillina Mauricio PLATE STRAIGHTENER Active LINZESS 290 MCG CAPS Take one by mouth daily LINACLOTIDE 44752869093 No Longer Active Vishal Hui MD Active SAPHRIS 5 MG SUBL 1 tab po qd ASENAPINE MALEATE 60786200540 No Longer Active Vishal Hui MD Active ZALEPLON 10 MG CAPS 1 cap po every other night ZALEPLON 92679220076 No Longer Active Vishal Hui MD Active LYRICA 50 MG CAPS 1 tab po TID PREGABALIN 43223273890 No Longer Active Vishal Hui MD Active LORATADINE 10 MG TABS 1 tab po qd LORATADINE 95889381119 No Longer Active Vishal Hui MD Active VERAPAMIL HCL ER 180 MG CR-TABS 1 tab po bid VERAPAMIL HCL 96079299595 No Longer Active Vishal Hui MD Active MIRALAX POWD 1 capfull once daily POLYETHYLENE GLYCOL 3350 32370659839 No Longer Active Vishal Hui MD Active PREDNISONE 20 MG TABS 1 tab po qd PREDNISONE 37636126910 No Longer Active Renzo Thornton DO Active LEVOFLOXACIN 500 MG TABS 1 tab po qd LEVOFLOXACIN 87909405330 No Longer Active Renzo Thornton DO Active BUSPIRONE HCL 15 MG TABS 1 tab po TID BUSPIRONE HCL 44813777455 No Longer Active Renzo Thornton DO Active BENZTROPINE MESYLATE 1 MG TABS 1 tab po qd BENZTROPINE MESYLATE 58879033633 No Longer Active Renzo Thornton DO Active ATENOLOL 25 MG TABS 1 tab po qd ATENOLOL 49337820009 No Longer Active Renzo Thornton DO Active ESCITALOPRAM OXALATE 20 MG TABS 1 tab po qd ESCITALOPRAM OXALATE 73286264973 No Longer Active Renzo Thornton DO Active ADVAIR DISKUS 250-50 MCG/DOSE AEPB 1 puff BID FLUTICASONE-SALMETEROL 03187578460 No Longer Active Renzo Thornton DO Active PREDNISONE 20 MG TAB 2 tabs daily for 3 days, 1 tab daily for 3 days, 1/2 tab daily for 2 days PREDNISONE 84198271768 No Longer Active Vishal Hui MD Active CEFDINIR 300 MG CAPS by mouth twice a day CEFDINIR 99151703906 No Longer Active Vishal Hui MD Active LANSOPRAZOLE 30 MG CPDR 1 cap po qd LANSOPRAZOLE 46513420503 No Longer Active Vishal Hui MD Active BACLOFEN 20 MG TABS 1 tab po tid BACLOFEN 97477312057 No Longer Active Vishal Hui MD Active ADVAIR DISKUS 250-50 MCG/DOSE AEPB 1 puff BID ADVAIR DISKUS 250-50 MCG/DOSE AEPB FLUTICASONE-SALMETEROL Inactive ESCITALOPRAM OXALATE 20 MG TABS 1 tab po qd ESCITALOPRAM OXALATE 20 MG TABS 229421 ESCITALOPRAM OXALATE Inactive ATENOLOL 25 MG TABS 1 tab po qd ATENOLOL 25 MG TABS 205506 ATENOLOL Inactive BENZTROPINE MESYLATE 1 MG TABS 1 tab po qd BENZTROPINE MESYLATE 1 MG TABS 747484 BENZTROPINE MESYLATE Inactive BUSPIRONE HCL 15 MG TABS 1 tab po TID BUSPIRONE HCL 15 MG TABS 743882 BUSPIRONE HCL Inactive LEVOFLOXACIN 500 MG TABS 1 tab po qd LEVOFLOXACIN 500 MG TABS 183963 LEVOFLOXACIN Inactive PREDNISONE 20 MG TABS 1 tab po qd PREDNISONE 20 MG TABS 350829 PREDNISONE Inactive MIRALAX POWD 1 capfull once daily MIRALAX POWD 219395 POLYETHYLENE GLYCOL 3350 Inactive VERAPAMIL HCL ER 180 MG CR-TABS 1 tab po bid VERAPAMIL HCL ER 180 MG CR-TABS VERAPAMIL HCL Inactive LORATADINE 10 MG TABS 1 tab po qd LORATADINE 10 MG TABS 962851 LORATADINE Inactive LYRICA 50 MG CAPS 1 tab po TID LYRICA 50 MG CAPS PREGABALIN Inactive ZALEPLON 10 MG CAPS 1 cap po every other night ZALEPLON 10 MG CAPS 711189 ZALEPLON Inactive SAPHRIS 5 MG SUBL 1 tab po qd SAPHRIS 5 MG SUBL ASENAPINE MALEATE Inactive TRAZODONE HCL 50 MG TABS 1/2 tab po qd prn for anxiety TRAZODONE HCL 50 MG TABS 524031 TRAZODONE HCL Inactive LATUDA 20 MG TABS Take one by mouth daily LATUDA 20 MG TABS LURASIDONE HCL Inactive LISINOPRIL 20 MG TABS 1 tab po qd LISINOPRIL 20 MG TABS 877776 LISINOPRIL Inactive SAPHRIS 10 MG SUBL 1 [...] twice daily BACTRIM DS 800-160 MG TAB 105007 TRIMETHOPRIM-SULFAMETHOXAZOLE Inactive MULTIVITAMINS CAPS Take one by mouth daily MULTIVITAMINS CAPS MULTIPLE VITAMIN Inactive MELATONIN 3 MG CAPS 2 po q hs MELATONIN 3 MG CAPS 526104 MELATONIN Inactive KEFLEX 500 MG ORAL CAPS 1 cap QID by mouth KEFLEX 500 MG ORAL CAPS 227418 CEPHALEXIN Inactive CLINDAMYCIN HCL 150 MG CAPS 1 four times a day CLINDAMYCIN HCL 150 MG CAPS 031999 CLINDAMYCIN HCL Inactive DIFLUCAN 150 MG TAB 1 tablet by mouth daily DIFLUCAN 150 MG TAB 683848 FLUCONAZOLE Inactive PROZAC 20 MG CAP Take one by mouth daily PROZAC 20 MG CAP 532919 FLUOXETINE HCL Inactive IBUPROFEN 600 MG TAB 1 po TID PRN IBUPROFEN 600 MG TAB 717803 IBUPROFEN Inactive VYVANSE 40 MG CAPS 1 daily, VYVANSE 40 MG CAPS LISDEXAMFETAMINE DIMESYLATE Inactive TRAZODONE HCL 100 MG TAB take 1 at bedtime TRAZODONE HCL 100 MG TAB 631151 TRAZODONE HCL Inactive AMITRIPTYLINE HCL 100 MG TAB one at hs AMITRIPTYLINE HCL 100 MG TAB 021424 AMITRIPTYLINE HCL Inactive AMLODIPINE BESYLATE 5 MG TABS 1 tablet by mouth daily AMLODIPINE BESYLATE 5 MG TABS 278281 AMLODIPINE BESYLATE Inactive LATUDA 80 MG TABS Take one by mouth daily LATUDA 80 MG TABS LURASIDONE HCL Inactive SAPHRIS 5 MG SUBL 1 po bid SAPHRIS 5 MG SUBL ASENAPINE MALEATE Inactive PREDNISONE 20 MG TAB 2 tabs daily for 4 days, 1 tab daily for 4 days, 1/2 tab daily for 4 days PREDNISONE 20 MG TAB 813882 PREDNISONE Inactive AMBIEN 5 MG ORAL TABS 1 tab at bedtime AMBIEN 5 MG ORAL TABS 877488 ZOLPIDEM TARTRATE Inactive PROZAC 20 MG ORAL CAPS 1 tab daily PROZAC 20 MG ORAL CAPS 360636 FLUOXETINE HCL Inactive ABILIFY 15 MG ORAL TABS 1 tab daily ABILIFY 15 MG ORAL TABS 536651 ARIPIPRAZOLE Inactive METOPROLOL TARTRATE 50 MG TAB 1 po bid METOPROLOL TARTRATE 50 MG TAB 192576 METOPROLOL TARTRATE Inactive TRAMADOL HCL 50 MG TABS 1-2 po TID PRN Pain TRAMADOL HCL 50 MG TABS 741574 TRAMADOL HCL Inactive PIROXICAM 20 MG CAPS 1 cap po qd PRN Pain PIROXICAM 20 MG CAPS 986145 PIROXICAM Inactive MINIPRESS 2 MG CAPS 4 cap po at night MINIPRESS 2 MG CAPS 044372 PRAZOSIN HCL Inactive MIRALAX PACK 1 po qd PRN Constipation MIRALAX PACK 102258 POLYETHYLENE GLYCOL 3350 Inactive METOPROLOL TARTRATE 25 MG ORAL TABS 1/2 tablet twice daily for heart rate and blood pressure METOPROLOL TARTRATE 25 MG ORAL TABS 459526 METOPROLOL TARTRATE Inactive VALIUM 5 MG TAB Take 1-2 tablets daily VALIUM 5 MG TAB 093261 DIAZEPAM Inactive FLAGYL 500 MG TAB 1 tablet by mouth bid FLAGYL 500 MG TAB 315145 METRONIDAZOLE Inactive DICLOFENAC POTASSIUM TABS Take 1 tablet twice a day (pt. is not sure of the dose.) DICLOFENAC POTASSIUM TABS DICLOFENAC POTASSIUM TABS Inactive ZITHROMAX Z-EARNEST 250 MG TABS 2 today and then 1 daily for 4 days ZITHROMAX Z-EARNEST 250 MG TABS 5410050 AZITHROMYCIN Inactive PREDNISONE 20 MG TABS 2 daily for 5 days then 1 daily for 5 days PREDNISONE 20 MG TABS 942003 PREDNISONE Inactive PROAIR HFA 108 (90 BASE) MCG/ACT AERS 2 puffs four times a day as needed 2015 PROAIR HFA 108 (90 BASE) MCG/ACT AERS ALBUTEROL SULFATE Inactive HYDROCODONE-ACETAMINOPHEN 5-325 MG TABS 1 to 2 four times a day as needed for pain use until can be seen by specialist HYDROCODONE- ACETAMINOPHEN 5-325 MG TABS 771471 HYDROCODONE-ACETAMINOPHEN Inactive TESSALON PERLES 100 MG CAP 1 to 2 tablets by mouth 3 times daily as needed for cough TESSALON PERLES 100 MG CAP 516555 BENZONATATE Inactive CHANTIX STARTING MONTH EARNEST 0.5 [...] Pain 2015 DICLOFENAC SODIUM 50 MG TBEC 367164 DICLOFENAC SODIUM Inactive TOPAMAX 50 MG ORAL TABS 1 tab twice daily TOPAMAX 50 MG ORAL TABS 272044 TOPIRAMATE Inactive VIIBRYD 10 MG ORAL TABS Take 1 tablet once a day VIIBRYD 10 MG ORAL TABS VILAZODONE HCL Inactive LEVOFLOXACIN 500 MG ORAL TABS po daily LEVOFLOXACIN 500 MG ORAL TABS 970364 LEVOFLOXACIN Inactive METHYLPREDNISOLONE 4 MG ORAL TABS po daily METHYLPREDNISOLONE 4 MG ORAL TABS 129451 METHYLPREDNISOLONE Inactive OXYCODONE HCL ER 10 MG ORAL T12A 1/2 tab by mouth every 4 hours prn OXYCODONE HCL ER 10 MG ORAL T12A OXYCODONE HCL Inactive FLAGYL 500 MG TAB 1 tablet by mouth bid FLAGYL 500 MG TAB 221302 METRONIDAZOLE Inactive MONISTAT 7 COMBO PACK WOODROW 100 & 2 MG-% (9GM) VAG KIT 1 applicatorful per vagina q pm x 7 MONISTAT 7 COMBO PACK WOODROW 100 & 2 MG-% (9GM) VAG KIT MICONAZOLE NITRATE Inactive BACTRIM DS 800-160 MG TABS 1 twice a day BACTRIM DS 800-160 MG TABS 106985 SULFAMETHOXAZOLE-TRIMETHOPRIM Inactive TRAMADOL HCL 50 MG TABS 1/2-1 tab TID PRN TRAMADOL HCL 50 MG TABS 409589 TRAMADOL HCL Inactive ABILIFY MAINTENA 400 MG IM SUSR 400mg injection every 26 days ABILIFY MAINTENA 400 MG IM SUSR ARIPIPRAZOLE Inactive KLONOPIN 1 MG ORAL TABS 1 tab po TID KLONOPIN 1 MG ORAL TABS 814585 CLONAZEPAM Inactive ADVAIR DISKUS 250-50 MCG/DOSE INH AEPB 1 puff twice a day for asthma ADVAIR DISKUS 250-50 MCG/DOSE INH AEPB FLUTICASONE- SALMETEROL Inactive BENADRYL 25 MG CAP 4 po at bedtime for insomnia BENADRYL 25 MG CAP DIPHENHYDRAMINE HCL Inactive PREDNISONE 20 MG TABS 2 daily for 5 days then 1 daily for 5 days PREDNISONE 20 MG TABS 797761 PREDNISONE Inactive HYDROCODONE-ACETAMINOPHEN 5-325 MG ORAL TABS 1 tab two times a day HYDROCODONE-ACETAMINOPHEN 5-325 MG ORAL TABS 336986 HYDROCODONE-ACETAMINOPHEN Inactive ZITHROMAX Z-EARNEST 250 MG TABS 2 today and then 1 daily for 4 days ZITHROMAX Z-EARNEST 250 MG TABS 7136166 AZITHROMYCIN Inactive GUAIFENESIN-CODEINE 100-10 MG/5ML SYRP 5ml every 4 to 6 hours as needed for cough GUAIFENESIN-CODEINE 100-10 MG/5ML SYRP 522347 GUAIFENESIN-CODEINE Inactive HALOPERIDOL 10 MG ORAL TABS 1 tab q.d HALOPERIDOL 10 MG ORAL TABS 662422 HALOPERIDOL Inactive ASPIRIN 325 MG ORAL TABS 1 tab q.d ASPIRIN 325 MG ORAL TABS 772737 ASPIRIN Inactive FLUTICASONE PROPIONATE 50 MCG/ACT SUSP 2 sprays each nostril daily before bed. FLUTICASONE PROPIONATE 50 MCG/ACT SUSP 7523947 FLUTICASONE PROPIONATE Inactive ZOFRAN 4 MG TABS 1 po q6hr PRN Nausea ZOFRAN 4 MG TABS 947152 ONDANSETRON HCL Inactive CEFDINIR 300 MG CAPS by mouth twice a day CEFDINIR 300 MG CAPS 372720 CEFDINIR Inactive PREDNISONE 20 MG TAB 2 tabs daily for 3 days, 1 tab daily for 3 days, 1/2 tab daily for 2 days PREDNISONE 20 MG TAB 202831 PREDNISONE Inactive BACTRIM DS 800-160 MG TABS 1 po BID x 7 days BACTRIM DS 800-160 MG TABS 19820521 SULFAMETHOXAZOLE-TRIMETHOPRIM Inactive DIFLUCAN 150 MG TABS 1 pill every other day x 2 doses DIFLUCAN 150 MG TABS 025190 FLUCONAZOLE Inactive BACTRIM DS 800-160 MG TABS 1 pill by mouth twice daily BACTRIM DS 800-160 MG TABS 19820521 SULFAMETHOXAZOLE-TRIMETHOPRIM Inactive KEFLEX 500 MG CAP 1 po TID x 10 days KEFLEX 500 MG CAP 044936 CEPHALEXIN Inactive Advance Directives Directive Description Start [...] % 11.0-15.0 platelet count 443 THOUSAND/UL 10*3/mm3 920-507 2922/03/01 mean platelet volume 8.2 fL 7.5-12.5 Lab [...] 369 10^3/MM^3 10*3/mm3 142-424 Lab Report: Chlamydia/GC APTIMA/62515 - Lab chlamydia DNA probe NOT DETECTED NOT DETECTED Lab Report: Chlamydia/GC APTIMA/57455 - Microbiology Neisseria gonorrhoeae DNA probe NOT DETECTED NOT DETECTED Lab Report: Chlamydia/GC APTIMA/07939, Urinalysis, Complete, with Reflex ... - Lab chlamydia DNA probe NOT DETECTED NOT DETECTED Lab Report: Chlamydia/GC APTIMA/[id number], Urinalysis, Complete, with Reflex ... - Microbiology Neisseria gonorrhoeae DNA probe NOT DETECTED NOT DETECTED Lab Report: Chlamydia/GC APTIMA/68038, Urinalysis, Complete, with Reflex ... - Urinalysis microalbumin/total urine volume 2 mg/L Units converted. See lab report for original value. microalbumin/creatinine ratio, urine 9 MCG/MG CREAT mg/L <30 Lab Report: Comp. Metabolic Panel - Chemistry sodium, serum 142 mmol/L 840-696 8393/06/08 carbon dioxide, venous blood 27.6 mmol/L 21.0-32.0 potassium, serum 4.0 mmol/L 3.5-5.2 chloride, serum 105 mmol/L 98-107 blood glucose 95 mg/dL 65-110 urea nitrogen, blood 8 mg/dL 7-18 creatinine, serum 0.75 mg/dL 0.55-1.30 alanine aminotransferase (SGPT), serum 49 U/L 12-78 aspartate aminotransferase (SGOT), serum 28 U/L 15-37 calcium, serum 9.4 mg/dL 8.5-10.1 bilirubin, serum, total 0.30 mg/dL 0.00-1.00 sodium, serum 140 mmol/L 865-537 6525/08/08 carbon dioxide, venous blood 33.7 mmol/L 21.0-32.0 [...] mg/dL Encounters Code Encounter Date Provider Facility CPT-31914 Level 3 Est. Patient 11:15:58 FIRE SUPERVISOR Renzo Thornton DO [facility] CPT-51564 Level 3 Est. Patient 15:28:23 FIRE SUPERVISOR Suzan Boo [facility] CPT-37568 Level 4 Est. Patient 10:20:54 FIRE SUPERVISOR Suzan Boo [facility] CPT-17062 Level 3 Est. Patient 11:47:37 FIRE SUPERVISOR Ahmet Carbajal MD [facility] CPT-56100 Level 3 Est. Patient 10:40:11 FIRE SUPERVISOR Ahmet Carbajal MD [facility] CPT-12959 Level 3 Est. Patient 15:07:06 FIRE SUPERVISOR Neeraj Collins MD [facility] CPT-53235 Level 4 Est. Patient 14:45:00 FIRE SUPERVISOR Ahmet Carbajal MD [facility] CPT-55046 Level 3 Est. Patient 13:59:59 CDT Luigi Martínez [facility] CPT-49057 Level 3 Est. Patient 18:18:53 CDT Neeraj Collins MD [facility] CPT-75044 Level 3 Est. Patient 15:50:44 CDT Vishal Hui MD [facility] CPT-41924 Level 3 Est. Patient 11:36:17 CDT Ahmet Carbajal MD [facility] CPT-16064 Level 3 Est. Patient 13:29:16 CDT Vishal Hui MD [facility] CPT-91768 Level 3 Est. Patient 14:27:52 CDT Neeraj Collins MD [facility] CPT-96731 Level 3 Est. Patient 08:56:03 CDT Luigi [facility] CPT-61526 Level 4 Est. Patient 12:11:48 CDT Fabiola Johnson [facility] CPT-27985 Level 3 New Patient 16:53:37 CDT Albert Caldera MD [facility] CPT-27691 Level 3 Est. Patient 11:25:49 CDT Renzo Thornton DO [facility] CPT-18352 Level 3 Est. Patient 15:22:01 CDT Ahmet Carbajal MD [facility] CPT-55821 Level 4 Est. Patient 09:00:51 FIRE SUPERVISOR Vishal Hui MD [facility] CPT-84125 Level 3 Est. Patient 11:37:33 FIRE SUPERVISOR Vishal Hui MD [facility] CPT-24838 Level 3 Est. Patient 08:41:09 FIRE SUPERVISOR Vishal Hui MD [facility] CPT-42836 Level 4 Est. Patient 10:19:35 FIRE SUPERVISOR Vishal Hui MD [facility] CPT-17615 Level 3 Est. Patient 13:35:45 CDT Vishal Hui MD [facility] CPT-09019 Level 4 Est. Patient 10:08:37 CDT Vishal Hui MD [facility] CPT-19860 Level 3 Est. Patient 11:22:10 CDT Vishal Hui MD [facility] CPT-72558 Level 3 Est. Patient 11:03:32 CDT Sahara Rodriguez MD [facility] CPT-01071 Level 3 Est. Patient 09:41:35 CDT Vishal Hui MD [facility] CPT-58883 Level 3 Est. Patient 12:00:41 CDT Neeraj Collins MD [facility] CPT-86048 Level 3 Est. Patient 09:16:24 CDT Vishal Hui MD [facility] CPT-57111 Level 4 Est. Patient 13:59:09 CDT Neeraj Collins MD [facility] CPT-29194 Level 3 Est. Patient 15:19:43 CDT Renzo Thornton DO [facility] CPT-45600 Level 3 Est. Patient 18:10:26 CDT Sahara Rodriguez MD [facility] CPT-25182 Level 3 Est. Patient 14:49:50 CDT Vishal Hui MD [facility] CPT-38882 Level 4 Est. Patient 18:41:46 CDT Neeraj Collins MD [facility] CPT-42157 Level 4 Est. Patient 09:18:38 FIRE SUPERVISOR Vishal Hui MD [facility] CPT-17128 Level 3 Est. Patient 14:43:55 FIRE SUPERVISOR Vishal Hui MD [facility] CPT-15653 Level 3 Est. Patient 15:26:33 FIRE SUPERVISOR Sahara Rodriguez MD PhD [facility] CPT-59907 Level 3 Est. Patient 10:32:14 FIRE SUPERVISOR Vishal Hui MD [facility] CPT-66393 Level 3 Est. Patient 15:12:52 FIRE SUPERVISOR Vishal Hui MD [facility] CPT-04556 Level 4 Est. Patient 09:19:27 CDT Vishal Hui MD [facility] CPT-97999 Level 3 Est. Patient 15:53:00 CDT Renzo Thornton [facility] CPT-00246 Level 3 Est. Patient 15:50:30 CDT Renzo Thornton [facility] CPT-62895 Level 3 Est. Patient 16:55:24 CDT Vishal Hui MD [facility] Procedures Code Procedure Name Date Entry Date Standard Description CPT-77482 Smoking Cessation counseling 11:15:58 FIRE SUPERVISOR CPT-G0439 [facility] Annual Wellness Exam 09:30:58 FIRE SUPERVISOR CPT-36632 TSH - LAB USE ONLY 08:50:26 FIRE SUPERVISOR CPT-50131 CBC - LAB USE ONLY 08:50:26 FIRE SUPERVISOR CPT-88566 Venipuncture Draw Fee 08:50:26 FIRE SUPERVISOR CPT-32859 Abx/Therapy Injection 17:34:30 FIRE SUPERVISOR CPT-78841 Nexplanon Removal with Reinsertion 14:09:32 CDT CPT-J7307 Nexplanon (Implant) 14:09:32 CDT CPT-OV Office Visit 14:09:32 CDT CPT-74972 UA w micro - LAB USE ONLY 16:21:13 CDT CPT-48670 Wet Mount - LAB USE ONLY 16:21:13 CDT CPT-15492 First Vx - Ix admin for Medicare patients 14:37:47 CDT CPT-02863 Fluzone Preservative Free Intramuscular Suspension 14:37 :47 CDT CPT-21557 Abx/Therapy Injection 13:54:22 CDT CPT-26898 Abx/Therapy Injection 08:47:09 CDT CPT-43734 Abx/Therapy Injection 13:29:56 CDT CPT-45896 Abx/Therapy Injection 08:36:16 CDT CPT-95051 Wet Mount - LAB USE ONLY 17:44:58 CDT CPT-20802 UA w micro - LAB USE ONLY 17:44:58 CDT CPT-96726 CMP - LAB USE ONLY 17:44:58 CDT CPT-58350 Venipuncture Draw Fee 17:44:58 CDT CPT-92901 Cervical Min 4V - XRAY USE ONLY 09:01:40 CDT CPT-07569 Chest 2V Frontal and Lat - XRAY USE ONLY 11:06:31 CDT CPT-98878 EKG Trac and Interp - XRAY USE ONLY 11:31:43 CDT 08/26 CPT-J3420 Vitamin B12 1000mcg (Cyanocobalamin) 08:10:26 FIRE SUPERVISOR 04/12 CPT-28573 Abx/Therapy Injection 08:10:26 FIRE SUPERVISOR CPT-G0438 Initial Annual Wellness Exam 19:01:01 FIRE SUPERVISOR CPT-J3420 Vitamin B12 1000mcg (Cyanocobalamin) 16:57:46 CDT 08/14 CPT-22323 Recombivax HB Injection Suspension 5 MCG/0.5ML 08:37:50 FIRE SUPERVISOR CPT-40142 Immunization Single Admin 08:37:50 FIRE SUPERVISOR CPT-J3420 Vitamin B12 1000mcg (Cyanocobalamin) 08:32:16 FIRE SUPERVISOR 03/11 CPT-29220 Abx/Therapy Injection 08:32:16 FIRE SUPERVISOR CPT-67787 Chest 2V Frontal and Lat 11:46:38 FIRE SUPERVISOR CPT-92549 Venipuncture Draw Fee 09:12:45 FIRE SUPERVISOR CPT-J3420 Vitamin B12 1000mcg (Cyanocobalamin) 08:50:15 FIRE SUPERVISOR 02/08 CPT-53783 Abx/Therapy Injection 08:50:15 FIRE SUPERVISOR CPT-Cryo Cryotherapy 10:19:35 FIRE SUPERVISOR CPT-000 Give Appropriate Flu Vaccine 09:22:16 CDT CPT-J3420 Vitamin B12 1000mcg (Cyanocobalamin) 19:08:57 CDT 01/11 CPT-82552 Abx/Therapy Injection 19:08:57 CDT CPT-J3420 Vitamin B12 1000mcg (Cyanocobalamin) 08:19:08 CDT 12/11 CPT-25845 Abx/Therapy Injection 08:19:08 CDT CPT-J3420 Vitamin B12 1000mcg (Cyanocobalamin) 14:48:00 CDT 11/09 CPT-25237 Abx/Therapy Injection 14:47:59 CDT CPT-J3420 Vitamin B12 1000mcg (Cyanocobalamin) 08:34:04 CDT 10/09 CPT-18772 Abx/Therapy Injection 08:34:04 CDT CPT-J3420 Vitamin B12 1000mcg (Cyanocobalamin) 09:18:52 CDT 09/11 CPT-18302 Abx/Therapy Injection 09:18:52 CDT CPT-J3420 Vitamin B12 1000mcg (Cyanocobalamin) 08:35:44 CDT 09/04 CPT-63365 Abx/Therapy Injection 08:35:44 CDT CPT-74710 Immunization Single Admin 11:07:16 CDT CPT-73307 Hepatitis B adult IM 11:07:16 CDT CPT-J3420 Vitamin B12 1000mcg (Cyanocobalamin) 11:00:49 CDT 08/28 CPT-J1040 Depo Medrol 80 mg (Methyl Prednisolone Acetate) 11:00: 49 CDT CPT-91292 Abx/Therapy Injection 11:00:49 CDT CPT-J1040 Depo Medrol 80 mg (Methyl Prednisolone Acetate) 09:16: 23 CDT CPT-J3420 Vitamin B12 1000mcg (Cyanocobalamin) 08:27:05 CDT 08/20 CPT-68680 Abx/Therapy Injection 08:27:05 CDT CPT-30463 Recombivax HB Injection Suspension 5 MCG/0.5ML 10:00:41 CDT CPT-68349 Administration single or combination vaccine inc oral 10 :00:41 CDT CPT-50684 Sono transvag pelvis non OB uterus ovaries cervix 16:36: 57 CDT CPT-77840 LS spine comp w obliq 09:50:55 FIRE SUPERVISOR CPT-56054 Abd compl w upright 09:50:55 FIRE SUPERVISOR CPT-J1100 Decadron 4mg (Dexamethasone) 15:51:24 FIRE SUPERVISOR CPT-J1030 Depo Medrol 40 mg (Methyl Prednisolone Acetate) 15:51: 24 FIRE SUPERVISOR CPT-36206 Abx/Therapy Injection 15:51:24 FIRE SUPERVISOR CPT-J1100 Decadron 4mg (Dexamethasone) 15:26:33 FIRE SUPERVISOR CPT-J1030 Depo Medrol 40 mg (Methyl Prednisolone Acetate) 15:26: 33 FIRE SUPERVISOR CPT-86007 Sono retroperitoneal complete kidneys and bladder 17:15: 30 CDT CPT-41374 Abd compl w upright 16:09:25 CDT CPT-J1100 Decadron 8mg (Dexamethasone) 17:07:57 CDT CPT-43902 Abx/Therapy Injection 17:07:57 CDT CPT-J1100 Decadron 8mg (Dexamethasone) 16:55:24 CDT CPT-16503 Chest 2V Frontal and Lat 16:32:44 CDT
--- OUTSIDE RECORDS SUMMARY | 2016-11-04 18:58 | XMS REPORT | Clinical Summary ---
Author Author Admin, Purkinje Organization [facility] Address Unknown Phone Unavailable [...] Shortness of breath 786.05 Active Fabiola Johnson ALUM OPERATOR Shortness of breath Nocturnal hypoxia 799.02 Active Fabiola Johnson ALUM OPERATOR Hypoxemia Neck pain 723.1 Active Luigi Martínez ALUM OPERATOR Cervicalgia Vaginal discharge 623.5 Active Neeraj Collins [...] TABS take as directed 2015 VARENICLINE TARTRATE 01678333521 Active Ahmet Carbajal MD Active CHANTIX 1 MG TABS 1 twice a day to help quit smoking VARENICLINE TARTRATE 01292970873 Active Ahmet Carbajal MD Active HYDROCODONE-ACETAMINOPHEN 5-325 MG TABS 1 to 2 four times a day as needed for pain use until can be seen by specialist HYDROCODONE- ACETAMINOPHEN 08713388158 No Longer Active Vishal Hui MD Active PROAIR HFA 108 (90 BASE) MCG/ACT AERS 2 puffs four times a day as needed 2015 ALBUTEROL SULFATE 80798696220 No Longer Active Vishal Hui MD Active PREDNISONE 20 MG TABS 2 daily for 5 days then 1 daily for 5 days PREDNISONE 94095125753 No Longer Active Vishal Hui MD Active ZITHROMAX Z-EARNEST 250 MG TABS 2 today and then 1 daily for 4 days AZITHROMYCIN 15568178587 No Longer Active Vishal Hui MD Active DICLOFENAC SODIUM 50 MG TBEC 1 tablet by mouth four times daily PRN Pain 2015 DICLOFENAC SODIUM 07700426989 Active Vishal Hui MD Active DICLOFENAC POTASSIUM TABS Take 1 tablet twice a day (pt. is not sure of the dose.) DICLOFENAC POTASSIUM TABS 21835096853 No Longer Active Vishal Hui MD Active VERAPAMIL HCL ER 120 MG ORAL CR-TABS Take 1 tablet by mouth twice a day. VERAPAMIL HCL 96767030818 Active Vishal Hui MD Active FLAGYL 500 MG TAB 1 tablet by mouth bid METRONIDAZOLE 86010208188 No Longer Active Vishal Hui MD Active ABILIFY MAINTENA 400 MG IM SUSR 400mg injection every 28 days ARIPIPRAZOLE 31026484030 Active Silvia Ervinum RADIOTELEGRAPH OPERATOR SERVICER Active FLUTICASONE PROPIONATE 50 MCG/ACT SUSP 2 sprays each nostril daily before bed. FLUTICASONE PROPIONATE 04337844108 Active Fabiola Johnson APRN Active ADZENYS XR-ODT 6.3 MG ORAL TBED 1 tab po daily for ADHD AMPHETAMINE 94187523659 Active Fabiola Johnson APRN Active BENADRYL 25 MG CAP 4 po at bedtime for insomnia DIPHENHYDRAMINE HCL 72993441430 Active Fabiola Johnson APRN Active KLONOPIN 1 MG ORAL TABS 1 tab po TID CLONAZEPAM 14275704872 Active Fabiola Johnson APRN Active VALIUM 5 MG TAB Take 1-2 tablets daily DIAZEPAM 42153506415 No Longer Active Fabiola Johnson APRN Active METOPROLOL TARTRATE 25 MG ORAL TABS 1/2 tablet twice daily for heart rate and blood pressure METOPROLOL TARTRATE 93344062904 No Longer Active Fabiola Johnson APRN Active MIRALAX ORAL POWD 17GMS DAILY IN WATER POLYETHYLENE GLYCOL 3350 02114136735 Active Vishal Hui MD Active VIIBRYD 10 MG ORAL TABS Take 1 tablet once a day VILAZODONE HCL 88518257148 Active Ahmet Carbajal MD Active MIRALAX PACK 1 po qd PRN Constipation POLYETHYLENE GLYCOL 3350 27907385008 No Longer Active Ahmet Carbajal MD Active MINIPRESS 2 MG CAPS 4 cap po at night PRAZOSIN HCL 12414210977 No Longer Active Ahmet Carbajal MD Active PIROXICAM 20 MG CAPS 1 cap po qd PRN Pain PIROXICAM 98926926077 No Longer Active Ahmet Carbajal MD Active TRAMADOL HCL 50 MG TABS 1-2 po TID PRN Pain TRAMADOL HCL 97473863789 No Longer Active Ahmet Carbajal MD Active METOPROLOL TARTRATE 50 MG TAB 1 po bid METOPROLOL TARTRATE 99679022377 No Longer Active Ahmet Carbajal MD Active ABILIFY 15 MG ORAL TABS 1 tab daily ARIPIPRAZOLE 26998819571 No Longer Active Ahmet Carbajal MD Active PROZAC 20 MG ORAL CAPS 1 tab daily FLUOXETINE HCL 35773266711 No Longer Active Ahmet Carbajal MD Active AMBIEN 5 MG ORAL TABS 1 tab at bedtime ZOLPIDEM TARTRATE 33956511662 No Longer Active Ahmet Carbajal MD Active PREDNISONE 20 MG TAB 2 tabs daily for 4 days, 1 tab daily for 4 days, 1/2 tab daily for 4 days PREDNISONE 29448692546 No Longer Active Ahmet Carbajal MD Active KEFLEX 500 MG CAP 1 po TID x 10 days CEPHALEXIN 47267151290 No Longer Active Vishal Hui MD Active IMITREX 50 MG ORAL TABS 1/2 tab every 6 hours prn SUMATRIPTAN SUCCINATE 84673920024 Active Jioral Martínez APRN Active TOPAMAX 50 MG ORAL TABS 1 tab twice daily TOPIRAMATE 61865048750 Active Vishal Hui MD Active SAPHRIS 5 MG SUBL 1 po bid ASENAPINE MALEATE 26429869161 No Longer Active Luigi Martínez APRN Active LATUDA 80 MG TABS Take one by mouth daily LURASIDONE HCL 99647584509 No Longer Active Luigi Martínez APRN Active AMLODIPINE BESYLATE 5 MG TABS 1 tablet by mouth daily AMLODIPINE BESYLATE 95827547166 No Longer Active Luigi Martínez APRN Active AMITRIPTYLINE HCL 100 MG TAB one at hs AMITRIPTYLINE HCL 94702154832 No Longer Active Vishal Hui MD Active TRAZODONE HCL 100 MG TAB take 1 at bedtime TRAZODONE HCL 13342234742 No Longer Active Vishal Hui MD Active VYVANSE 40 MG CAPS 1 daily, LISDEXAMFETAMINE DIMESYLATE 17301749023 No Longer Active Vishal Hui MD Active IBUPROFEN 600 MG TAB 1 po TID PRN IBUPROFEN 47487211068 No Longer Active Vishal Hui MD Active PROZAC 20 MG CAP Take one by mouth daily FLUOXETINE HCL 19633409443 No Longer Active Vishal Hui MD Active ZOFRAN 4 MG TABS 1 po q6hr PRN Nausea ONDANSETRON HCL Active Vishal Hui MD Active BACTRIM DS 800-160 MG TABS 1 pill by mouth twice daily SULFAMETHOXAZOLE-TRIMETHOPRIM 33008153553 No Longer Active Sahara Rodriguez MD PhD Active DIFLUCAN 150 MG TAB 1 tablet by mouth daily FLUCONAZOLE 39590405901 No Longer Active Vishal Hui MD Active TIZANIDINE HCL 4 MG TABS 1 po q6hr PRN Muscle Spasm/Back Pain TIZANIDINE HCL 22457550226 Active Vishal Hui MD Active CLINDAMYCIN HCL 150 MG CAPS 1 four times a day CLINDAMYCIN HCL 65289534274 No Longer Active Neeraj Collins MD Active KEFLEX 500 MG ORAL CAPS 1 cap QID by mouth CEPHALEXIN 57491107425 No Longer Active Neeraj Collins MD Active DIFLUCAN 150 MG TABS 1 pill every other day x 2 doses FLUCONAZOLE 60878843930 No Longer Active Sahara Rodriguez MD PhD Active MELATONIN 3 MG CAPS 2 po q hs MELATONIN 82783229654 No Longer Active Sahara Rodriguez MD PhD Active MULTIVITAMINS CAPS Take one by mouth daily MULTIPLE VITAMIN 72389110701 No Longer Active Sahara Rodriguez MD PhD Active BACTRIM DS 800-160 MG TAB 1 tab by mouth twice daily TRIMETHOPRIM-SULFAMETHOXAZOLE 86205105281 No Longer Active Sahara Rodriguez MD PhD Active [facility] PROBIOTIC ORAL CHEW 2 daily po PROBIOTIC PRODUCT 55392041590 No Longer Active Sahara Rodriguez MD PhD Active BACTRIM DS 800-160 MG TABS 1 po BID x 7 days SULFAMETHOXAZOLE-TRIMETHOPRIM 78046236271 No Longer Active Vishal Hui MD Active CHANTIX STARTING MONTH EARNEST 0.5 MG X 11 & 1 MG X 42 TABS 0.5mg daily for 3 days , then 0.5mg BID for 4 days, then 1mg BID VARENICLINE TARTRATE 57624978451 No Longer Active TAMARA Gray Active VERAPAMIL HCL CR 120 MG TAB CR 1 po bid VERAPAMIL HCL 54907729294 No Longer Active Vishal Hui MD Active METOPROLOL SUCCINATE 50 MG TB24 1 tablet by mouth daily METOPROLOL SUCCINATE 09834696654 No Longer Active Vishal Hui MD Active SAPHRIS 10 MG SUBL 1 tab po bid ASENAPINE MALEATE 80621355120 No Longer Active Vishal Hui MD Active LISINOPRIL 20 MG TABS 1 tab po qd LISINOPRIL 81647340400 No Longer Active Vishal Hui MD Active LATUDA 20 MG TABS Take one by mouth daily LURASIDONE HCL 00276902876 No Longer Active Vishal Hui MD Active TRAZODONE HCL 50 MG TABS 1/2 tab po qd prn for anxiety TRAZODONE HCL 49495577968 No Longer Active Vishal Hui MD Active OMEPRAZOLE 20 MG TBEC 1 po q a.m. 30min prior to first food intake OMEPRAZOLE 77376558625 Active Vishal Hui MD Active RANITIDINE HCL 150 MG CAPS 1 twice a day RANITIDINE HCL 64248306105 Active Luigi Martínez APRN Active LINZESS 290 MCG CAPS Take one by mouth daily LINACLOTIDE 98052719208 No Longer Active Vishal Hui MD Active SAPHRIS 5 MG SUBL 1 tab po qd ASENAPINE MALEATE 41694828354 No Longer Active Vishal Hui MD Active ZALEPLON 10 MG CAPS 1 cap po every other night ZALEPLON 80816429241 No Longer Active Vishal Hui MD Active LYRICA 50 MG CAPS 1 tab po TID PREGABALIN 32383802863 No Longer Active Vishal Hui MD Active LORATADINE 10 MG TABS 1 tab po qd LORATADINE 43977043388 No Longer Active Vishal Hui MD Active VERAPAMIL HCL ER 180 MG CR-TABS 1 tab po bid VERAPAMIL HCL 71409181277 No Longer Active Vishal Hui MD Active MIRALAX POWD 1 capfull once daily POLYETHYLENE GLYCOL 3350 48054416515 No Longer Active Vishal Hui MD Active PREDNISONE 20 MG TABS 1 tab po qd PREDNISONE 95572433181 No Longer Active Renzo Thornton DO Active LEVOFLOXACIN 500 MG TABS 1 tab po qd LEVOFLOXACIN 78084338536 No Longer Active Renzo Thornton DO Active BUSPIRONE HCL 15 MG TABS 1 tab po TID BUSPIRONE HCL 61199329258 No Longer Active Renzo Thornton DO Active BENZTROPINE MESYLATE 1 MG TABS 1 tab po qd BENZTROPINE MESYLATE 86693462427 No Longer Active Renzo Thornton DO Active ATENOLOL 25 MG TABS 1 tab po qd ATENOLOL 84265039072 No Longer Active Renzo Thornton DO Active ESCITALOPRAM OXALATE 20 MG TABS 1 tab po qd ESCITALOPRAM OXALATE 33860210382 No Longer Active Renzo Thornton DO Active ADVAIR DISKUS 250-50 MCG/DOSE AEPB 1 puff BID FLUTICASONE-SALMETEROL 22318266854 No Longer Active Renzo Thornton DO Active PREDNISONE 20 MG TAB 2 tabs daily for 3 days, 1 tab daily for 3 days, 1/2 tab daily for 2 days PREDNISONE 51870165459 No Longer Active Vishal Hui MD Active CEFDINIR 300 MG CAPS by mouth twice a day CEFDINIR 15558096715 No Longer Active Vishal Hui MD Active LANSOPRAZOLE 30 MG CPDR 1 cap po qd LANSOPRAZOLE 58998951169 No Longer Active Vishal Hui MD Active BACLOFEN 20 MG TABS 1 tab po tid BACLOFEN 91639679975 No Longer Active Vishal Hui MD Active ADVAIR DISKUS 250-50 MCG/DOSE AEPB 1 puff BID ADVAIR DISKUS 250-50 MCG/DOSE AEPB FLUTICASONE-SALMETEROL Inactive ESCITALOPRAM OXALATE 20 MG TABS 1 tab po qd ESCITALOPRAM OXALATE 20 MG TABS 121732 ESCITALOPRAM OXALATE Inactive ATENOLOL 25 MG TABS 1 tab po qd ATENOLOL 25 MG TABS 273379 ATENOLOL Inactive BENZTROPINE MESYLATE 1 MG TABS 1 tab po qd BENZTROPINE MESYLATE 1 MG TABS 602137 BENZTROPINE MESYLATE Inactive BUSPIRONE HCL 15 MG TABS 1 tab po TID BUSPIRONE HCL 15 MG TABS 851981 BUSPIRONE HCL Inactive LEVOFLOXACIN 500 MG TABS 1 tab po qd LEVOFLOXACIN 500 MG TABS 546528 LEVOFLOXACIN Inactive PREDNISONE 20 MG TABS 1 tab po qd PREDNISONE 20 MG TABS 787063 PREDNISONE Inactive MIRALAX POWD 1 capfull once daily MIRALAX POWD 032537 POLYETHYLENE GLYCOL 3350 Inactive VERAPAMIL HCL ER 180 MG CR-TABS 1 tab po bid VERAPAMIL HCL ER 180 MG CR-TABS VERAPAMIL HCL Inactive LORATADINE 10 MG TABS 1 tab po qd LORATADINE 10 MG TABS 187095 LORATADINE Inactive LYRICA 50 MG CAPS 1 tab po TID LYRICA 50 MG CAPS PREGABALIN Inactive ZALEPLON 10 MG CAPS 1 cap po every other night ZALEPLON 10 MG CAPS 826891 ZALEPLON Inactive SAPHRIS 5 MG SUBL 1 tab po qd SAPHRIS 5 MG SUBL ASENAPINE MALEATE Inactive TRAZODONE HCL 50 MG TABS 1/2 tab po qd prn for anxiety TRAZODONE HCL 50 MG TABS 126248 TRAZODONE HCL Inactive LATUDA 20 MG TABS Take one by mouth daily LATUDA 20 MG TABS LURASIDONE HCL Inactive LISINOPRIL 20 MG TABS 1 tab po qd LISINOPRIL 20 MG TABS 368102 LISINOPRIL Inactive SAPHRIS 10 MG SUBL 1 [...] twice daily BACTRIM DS 800-160 MG TAB 081560 TRIMETHOPRIM-SULFAMETHOXAZOLE Inactive MULTIVITAMINS CAPS Take one by mouth daily MULTIVITAMINS CAPS MULTIPLE VITAMIN Inactive MELATONIN 3 MG CAPS 2 po q hs MELATONIN 3 MG CAPS 662201 MELATONIN Inactive KEFLEX 500 MG ORAL CAPS 1 cap QID by mouth KEFLEX 500 MG ORAL CAPS 744671 CEPHALEXIN Inactive CLINDAMYCIN HCL 150 MG CAPS 1 four times a day CLINDAMYCIN HCL 150 MG CAPS 573903 CLINDAMYCIN HCL Inactive DIFLUCAN 150 MG TAB 1 tablet by mouth daily DIFLUCAN 150 MG TAB 808438 FLUCONAZOLE Inactive PROZAC 20 MG CAP Take one by mouth daily PROZAC 20 MG CAP 934464 FLUOXETINE HCL Inactive IBUPROFEN 600 MG TAB 1 po TID PRN IBUPROFEN 600 MG TAB 780258 IBUPROFEN Inactive VYVANSE 40 MG CAPS 1 daily, VYVANSE 40 MG CAPS LISDEXAMFETAMINE DIMESYLATE Inactive TRAZODONE HCL 100 MG TAB take 1 at bedtime TRAZODONE HCL 100 MG TAB 974223 TRAZODONE HCL Inactive AMITRIPTYLINE HCL 100 MG TAB one at hs AMITRIPTYLINE HCL 100 MG TAB 336781 AMITRIPTYLINE HCL Inactive AMLODIPINE BESYLATE 5 MG TABS 1 tablet by mouth daily AMLODIPINE BESYLATE 5 MG TABS 401264 AMLODIPINE BESYLATE Inactive LATUDA 80 MG TABS Take one by mouth daily LATUDA 80 MG TABS LURASIDONE HCL Inactive SAPHRIS 5 MG SUBL 1 po bid SAPHRIS 5 MG SUBL ASENAPINE MALEATE Inactive PREDNISONE 20 MG TAB 2 tabs daily for 4 days, 1 tab daily for 4 days, 1/2 tab daily for 4 days PREDNISONE 20 MG TAB 002637 PREDNISONE Inactive AMBIEN 5 MG ORAL TABS 1 tab at bedtime AMBIEN 5 MG ORAL TABS 692409 ZOLPIDEM TARTRATE Inactive PROZAC 20 MG ORAL CAPS 1 tab daily PROZAC 20 MG ORAL CAPS 017761 FLUOXETINE HCL Inactive ABILIFY 15 MG ORAL TABS 1 tab daily ABILIFY 15 MG ORAL TABS 180324 ARIPIPRAZOLE Inactive METOPROLOL TARTRATE 50 MG TAB 1 po bid METOPROLOL TARTRATE 50 MG TAB 602494 METOPROLOL TARTRATE Inactive TRAMADOL HCL 50 MG TABS 1-2 po TID PRN Pain TRAMADOL HCL 50 MG TABS 332066 TRAMADOL HCL Inactive PIROXICAM 20 MG CAPS 1 cap po qd PRN Pain PIROXICAM 20 MG CAPS 820921 PIROXICAM Inactive MINIPRESS 2 MG CAPS 4 cap po at night MINIPRESS 2 MG CAPS 090738 PRAZOSIN HCL Inactive MIRALAX PACK 1 po qd PRN Constipation MIRALAX PACK 470251 POLYETHYLENE GLYCOL 3350 Inactive METOPROLOL TARTRATE 25 MG ORAL TABS 1/2 tablet twice daily for heart rate and blood pressure METOPROLOL TARTRATE 25 MG ORAL TABS 027668 METOPROLOL TARTRATE Inactive VALIUM 5 MG TAB Take 1-2 tablets daily VALIUM 5 MG TAB 426037 DIAZEPAM Inactive FLAGYL 500 MG TAB 1 tablet by mouth bid FLAGYL 500 MG TAB 398283 METRONIDAZOLE Inactive DICLOFENAC POTASSIUM TABS Take 1 tablet twice a day (pt. is not sure of the dose.) DICLOFENAC POTASSIUM TABS DICLOFENAC POTASSIUM TABS Inactive ZITHROMAX Z-EARNEST 250 MG TABS 2 today and then 1 daily for 4 days ZITHROMAX Z-EARNEST 250 MG TABS 7198356 AZITHROMYCIN Inactive PREDNISONE 20 MG TABS 2 daily for 5 days then 1 daily for 5 days PREDNISONE 20 MG TABS 499716 PREDNISONE Inactive PROAIR HFA 108 (90 BASE) MCG/ACT AERS 2 puffs four times a day as needed 2015 PROAIR HFA 108 (90 BASE) MCG/ACT AERS ALBUTEROL SULFATE Inactive HYDROCODONE-ACETAMINOPHEN 5-325 MG TABS 1 to 2 four times a day as needed for pain use until can be seen by specialist HYDROCODONE- ACETAMINOPHEN 5-325 MG TABS 641592 HYDROCODONE-ACETAMINOPHEN Inactive CEFDINIR 300 MG CAPS by mouth twice a day CEFDINIR 300 MG CAPS 425802 CEFDINIR Inactive PREDNISONE 20 MG TAB 2 tabs daily for 3 days, 1 tab daily for 3 days, 1/2 tab daily for 2 days PREDNISONE 20 MG TAB 759422 PREDNISONE Inactive BACTRIM DS 800-160 MG TABS 1 po BID x 7 days BACTRIM DS 800-160 MG TABS 661833 SULFAMETHOXAZOLE-TRIMETHOPRIM Inactive DIFLUCAN 150 MG TABS 1 pill every other day x 2 doses DIFLUCAN 150 MG TABS 767101 FLUCONAZOLE Inactive BACTRIM DS 800-160 MG TABS 1 pill by mouth twice daily BACTRIM DS 800-160 MG TABS 062043 SULFAMETHOXAZOLE-TRIMETHOPRIM Inactive KEFLEX 500 MG CAP 1 po TID x 10 days KEFLEX 500 MG CAP 159630 CEPHALEXIN Inactive Advance Directives Directive Description Start [...] % 11.6-14.8 platelet count 394 10^3/MM^3 10*3/mm3 692-680 5175/01/11 leukocyte count, blood 13.8 10^3/MM^3 10*3/mm3 4.6-10.2 [...] Panel - Chemistry sodium, serum 139 mmol/L 548-499 8763/12/03 carbon dioxide, venous blood 28.5 mmol/L [...] 5.5 % 4.3-6.0 cholesterol, serum 159 mg/dL 065-527 6267/12/03 triglyceride, serum, fasting 118 mg/dL 30-200 HDL [...] Panel - Chemistry sodium, serum 139 mmol/L 362-189 2632/12/22 carbon dioxide, venous blood 26.8 mmol/L 21.0-32.0 potassium, serum 4.2 mmol/L 3.5-5.2 chloride, serum 103 mmol/L 98-107 blood glucose 115 mg/dL 65-110 urea nitrogen, blood 20 mg/dL 7-18 creatinine, serum 0.90 mg/dL 0.55-1.30 alanine aminotransferase (SGPT), serum 38 U/L -78 aspartate aminotransferase (SGOT), serum 19 U/L 15-37 calcium, serum 8.6 mg/dL 8.5-10.1 bilirubin, serum, total 0.30 mg/dL 0.00-1.00 sodium, serum 139 mmol/L 413-149 3795/01/11 carbon dioxide, venous blood 26.6 mmol/L 21.0-32.0 potassium, serum 4.1 mmol/L 3.5-5.2 chloride, serum 100 mmol/L 98-107 blood glucose 86 mg/dL 65-110 urea nitrogen, blood 16 mg/dL 7-18 creatinine, serum 1.00 mg/dL 0.55-1.30 alanine aminotransferase (SGPT), serum 48 U/L 78 aspartate aminotransferase (SGOT), serum 17 U/L 15-37 calcium, serum 9.1 mg/dL 8.5-10.1 bilirubin, serum, total 0.40 mg/dL 0.00-1.00 sodium, serum 142 mmol/L 905-771 4691/06/08 carbon dioxide, venous blood 27.6 mmol/L 21.0-32.0 potassium, serum 4.0 mmol/L 3.5-5.2 chloride, serum 105 mmol/L 98-107 blood glucose 95 mg/dL 65-110 urea nitrogen, blood 8 mg/dL 7-18 creatinine, serum 0.75 mg/dL 0.55-1.30 alanine aminotransferase (SGPT), serum 49 U/L - aspartate aminotransferase (SGOT), serum 28 U/L 15-37 calcium, serum 9.4 mg/dL 8.5-10.1 bilirubin, serum, total 0.30 mg/dL 0.00-1.00 sodium, serum 140 mmol/L 732-576 2330/08/08 carbon dioxide, venous blood 33.7 mmol/L 21.0-32.0 [...] Rate - Chemistry sodium, serum 139 mmol/L 834-326 8638/12/11 carbon dioxide, venous blood 25.4 mmol/L 21.0-32.0 [...] mg/dL Encounters Code Encounter Date Provider Facility CPT-47228 Level 3 Est. Patient 11:36:17 CDT Ahmet Carbajal MD [facility] CPT-92643 Level 3 Est. Patient 13:29:16 CDT Vishal Hui MD [facility] CPT-55951 Level 3 Est. Patient 14:27:52 CDT Neeraj Collins MD [facility] CPT-06607 Level 3 Est. Patient 08:56:03 CDT Jillina Frazell [facility] CPT-81630 Level 4 Est. Patient 12:11:48 CDT Fabiola Johnson [facility] CPT-61387 Level 3 New Patient 16:53:37 CDT Albert Caldera MD [facility] CPT-85229 Level 3 Est. Patient 11:25:49 CDT Renzo Thornton DO [facility] CPT-02666 Level 3 Est. Patient 15:22:01 CDT Ahmet Carbajal MD [facility] CPT-34945 Level 4 Est. Patient 09:00:51 JEWELRY FINISHER Vishal Hui MD [facility] CPT-78783 Level 3 Est. Patient 11:37:33 JEWELRY FINISHER Vishal Hui MD [facility] CPT-98016 Level 3 Est. Patient 08:41:09 JEWELRY FINISHER Vishal Hui MD [facility] CPT-85582 Level 4 Est. Patient 10:19:35 JEWELRY FINISHER Vishal Hui MD [facility] CPT-44474 Level 3 Est. Patient 13:35:45 CDT Vishal Hui MD [facility] CPT-45474 Level 4 Est. Patient 10:08:37 CDT Vishal Hui MD [facility] CPT-82914 Level 3 Est. Patient 11:22:10 CDT Vishal Hui MD [facility] CPT-66041 Level 3 Est. Patient 11:03:32 CDT Sahara Rodriguez MD PhD [facility] CPT-05949 Level 3 Est. Patient 09:41:35 CDT Vishal Hui MD [facility]-18297 Level 3 Est. Patient 12:00:41 CDT Neeraj Collins MD [facility] CPT-52984 Level 3 Est. Patient 09:16:24 CDT Vishal Hui MD [facility] CPT-47297 Level 4 Est. Patient 13:59:09 CDT Neeraj Collins MD [facility] CPT-46536 Level 3 Est. Patient 15:19:43 CDT Renzo Thornton [facility] CPT-98288 Level 3 Est. Patient 18:10:26 CDT Sahara Rodriguez MD [facility] CPT-19786 Level 3 Est. Patient 14:49:50 CDT Vishal Hui MD [facility] CPT-33975 Level 4 Est. Patient 18:41:46 CDT Neeraj Collins MD [facility] CPT-22021 Level 4 Est. Patient 09:18:38 JEWELRY FINISHER Vishal Hui MD [facility] CPT-38946 Level 3 Est. Patient 14:43:55 JEWELRY FINISHER Vishal Hui MD [facility] CPT-02919 Level 3 Est. Patient 15:26:33 JEWELRY FINISHER Sahara Rodriguez MD [facility] CPT-32439 Level 3 Est. Patient 10:32:14 JEWELRY FINISHER Vishal Hui MD [facility] CPT-71766 Level 3 Est. Patient 15:12:52 JEWELRY FINISHER Vishal Hui MD [facility] CPT-02593 Level 4 Est. Patient 09:19:27 CDT Vishal Hui MD [facility] CPT-60608 Level 3 Est. Patient 15:53:00 CDT Renzo Thornton [facility] CPT-53881 Level 3 Est. Patient 15:50:30 CDT Renzo Thornton [facility] CPT-56427 Level 3 Est. Patient 16:55:24 CDT Vishal Hui MD [facility] Procedures Code Procedure Name Date Entry Date Standard Description CPT-30666 Abx/Therapy Injection 08:47:09 CDT CPT-04819 Abx/Therapy Injection 13:29:56 CDT CPT-52605 Abx/Therapy Injection 08:36:16 CDT CPT-82980 Wet Mount - LAB USE ONLY 17:44:58 CDT CPT-92052 UA w micro - LAB USE ONLY 17:44:58 CDT CPT-15479 CMP - LAB USE ONLY 17:44:58 CDT CPT-48611 Venipuncture Draw Fee 17:44:58 CDT CPT-85880 Cervical Min 4V - XRAY USE ONLY 09:01:40 CDT CPT-16890 Chest 2V Frontal and Lat - XRAY USE ONLY 11:06:31 CDT CPT-71533 EKG Trac and Interp - XRAY USE ONLY 11:31:43 CDT 08/26 CPT-J3420 Vitamin B12 1000mcg (Cyanocobalamin) 08:10:26 JEWELRY FINISHER 04/12 CPT-15456 Abx/Therapy Injection 08:10:26 JEWELRY FINISHER CPT-G0438 Initial Annual Wellness Exam 19:01:01 JEWELRY FINISHER CPT-J3420 Vitamin B12 1000mcg (Cyanocobalamin) 16:57:46 CDT 08/14 CPT-92340 Recombivax HB Injection Suspension 5 MCG/0.5ML 08:37:50 JEWELRY FINISHER CPT-01537 Immunization Single Admin 08:37:50 JEWELRY FINISHER CPT-J3420 Vitamin B12 1000mcg (Cyanocobalamin) 08:32:16 JEWELRY FINISHER 03/11 CPT-22489 Abx/Therapy Injection 08:32:16 JEWELRY FINISHER CPT-00588 Chest 2V Frontal and Lat 11:46:38 JEWELRY FINISHER CPT-41831 Venipuncture Draw Fee 09:12:45 JEWELRY FINISHER CPT-J3420 Vitamin B12 1000mcg (Cyanocobalamin) 08:50:15 JEWELRY FINISHER 02/08 CPT-69035 Abx/Therapy Injection 08:50:15 JEWELRY FINISHER CPT-Cryo Cryotherapy 10:19:35 JEWELRY FINISHER CPT-000 Give Appropriate Flu Vaccine 09:22:16 CDT CPT-J3420 Vitamin B12 1000mcg (Cyanocobalamin) 19:08:57 CDT 01/11 CPT-58661 Abx/Therapy Injection 19:08:57 CDT CPT-J3420 Vitamin B12 1000mcg (Cyanocobalamin) 08:19:08 CDT 12/11 CPT-57220 Abx/Therapy Injection 08:19:08 CDT CPT-J3420 Vitamin B12 1000mcg (Cyanocobalamin) 14:48:00 CDT 11/09 CPT-07831 Abx/Therapy Injection 14:47:59 CDT CPT-J3420 Vitamin B12 1000mcg (Cyanocobalamin) 08:34:04 CDT 10/09 CPT-38406 Abx/Therapy Injection 08:34:04 CDT CPT-J3420 Vitamin B12 1000mcg (Cyanocobalamin) 09:18:52 CDT 09/11 CPT-17933 Abx/Therapy Injection 09:18:52 CDT CPT-J3420 Vitamin B12 1000mcg (Cyanocobalamin) 08:35:44 CDT 09/04 CPT-39561 Abx/Therapy Injection 08:35:44 CDT CPT-92002 Immunization Single Admin 11:07:16 CDT CPT-35271 Hepatitis B adult IM 11:07:16 CDT CPT-J3420 Vitamin B12 1000mcg (Cyanocobalamin) 11:00:49 CDT 08/28 CPT-J1040 Depo Medrol 80 mg (Methyl Prednisolone Acetate) 11:00: 49 CDT CPT-03856 Abx/Therapy Injection 11:00:49 CDT CPT-J1040 Depo Medrol 80 mg (Methyl Prednisolone Acetate) 09:16: 23 CDT CPT-J3420 Vitamin B12 1000mcg (Cyanocobalamin) 08:27:05 CDT 08/20 CPT-18405 Abx/Therapy Injection 08:27:05 CDT CPT-22599 Recombivax HB Injection Suspension 5 MCG/0.5ML 10:00:41 CDT CPT-78410 Administration single or combination vaccine inc oral 10 :00:41 CDT CPT-35805 Sono transvag pelvis non OB uterus ovaries cervix 16:36: 57 CDT CPT-25184 LS spine comp w obliq 09:50:55 JEWELRY FINISHER CPT-99800 Abd compl w upright 09:50:55 JEWELRY FINISHER CPT-J1100 Decadron 4mg (Dexamethasone) 15:51:24 JEWELRY FINISHER CPT-J1030 Depo Medrol 40 mg (Methyl Prednisolone Acetate) 15:51: 24 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
--- OUTSIDE RECORDS SUMMARY | 2016-11-04 19:01 | XMS REPORT | Clinical Summary ---
Author Author Admin, E Organization [employer] Address Unknown Phone Unavailable Allergies, Adverse Reactions, [...] Active Ahmet Carbajal MD Generalized anxiety disorder Layout Former well woman exam V72.31 Active Suzan Boo [...] cessation discussed ICD-305.1 Inactive Vishal Hui MD Health screening ICD-V70.0 Inactive Suzan Boo ANCHOR TACK P[employer]ER Sinus tachycardia ICD-427.89 Inactive Suzan Boo APRN Pelvic pain ICD-625.9 Inactive Vishal Hui MD Abscess, skin ICD-682.9 Inactive Vishal Hui MD Physical examination ICD-V70.0 Inactive Vishal Hui MD Abdominal pain ICD-789.00 Inactive Vishal Hui MD Cellulitis ICD-682.9 Inactive Vishal Hui MD Fatigue ICD-780.79 Jim Hui MD 2014 Vaginitis, candidal ICD-112.1 Inactive Vishal Hui MD Other abnormal blood chemistry ICD-790.6 Jim Hui MD Vaginitis ICD-616.10 Jim Hui MD Boils, recurrent ICD-680.9 Inactive [...] 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 Inactive Vishal Hui MD Nocturnal hypoxia ICD-799.02 [...] SOLN 30mL oral daily for IBS-C LACTULOSE 72201867701 Active Suzan Boo APRN Active TESSALON PERLES 100 MG CAPS 1 three times a day as needed for cough BENZONATATE 80864948367 No Longer Active Suzan Boo APRN Active BACTRIM DS 800-160 MG TABS 1 twice a day SULFAMETHOXAZOLE-TRIMETHOPRIM 86624313225 No Longer Active Suzan Boo APRN Active DIFLUCAN 150 MG TABS 1 by mouth for yeast FLUCONAZOLE 91506727396 No Longer Active Suzan Boo APRN Active EQ NICOTINE 21 MG/24HR TRANS PT24 Apply daily to stop smoking NICOTINE 52653839298 No Longer Active Suzan Boo APRN Active PREDNISONE 10 MG TABS 2 daily for 5 days then 1 daily for 5 days PREDNISONE 98831855072 No Longer Active Suzan Boo APRN Active LEVAQUIN 500 MG TABS 1 daily for infection LEVOFLOXACIN 11488884537 No Longer Active Suzan Boo APRN Active TROPICAMIDE 0.5 % OPHTH SOLN 1 drop PRN eye spasms TROPICAMIDE 86117932565 No Longer Active Suzan Boo APRN Active PREDNISONE 20 MG TAB 1 tablet daily x 4 days PREDNISONE 07378391749 No Longer Active Suzan Boo APRN Active ACETAMINOPHEN-CODEINE 120-12 MG/5ML SOLN 5 ml by mouth every 4-6 hours if needed for cough ACETAMINOPHEN-CODEINE 00328108120 No Longer Active Suzan Boo APRN Active KEFLEX 500 MG CAP 1 po qid CEPHALEXIN 63807395318 No Longer Active Suzan Boo APRN Active FLOVENT HFA 110 MCG/ACT AERO 2 puffs inhaled b.i.d. FLUTICASONE PROPIONATE HFA 26750376482 Active Renzo Thornton DO Active RISPERDAL 4 MG ORAL TABS 1 tab at bedtime RISPERIDONE 97617313723 Active Samantha Rothman RMA Active ZOFRAN 4 MG TABS 1 po q6hr PRN Nausea ONDANSETRON HCL No Longer Active Suzan Boo APRN Active FLUTICASONE PROPIONATE 50 MCG/ACT SUSP 2 sprays each nostril daily before bed. FLUTICASONE PROPIONATE 56090183978 No Longer Active Suzan Boo APRN Active ASPIRIN 325 MG ORAL TABS 1 tab q.d ASPIRIN 90769274548 No Longer Active Suzan Boo APRN Active HALOPERIDOL 10 MG ORAL TABS 1 tab q.d HALOPERIDOL 69970915683 No Longer Active Suzan Boo APRN Active GUAIFENESIN-CODEINE 100-10 MG/5ML SYRP 5ml every 4 to 6 hours as needed for cough GUAIFENESIN-CODEINE 44165628618 No Longer Active Suzan Boo APRN Active ZITHROMAX Z-EARNEST 250 MG TABS 2 today and then 1 daily for 4 days AZITHROMYCIN 90560275820 No Longer Active Suzan Boo APRN Active CLONAZEPAM 1 MG ORAL TABS 1 twice a day and an additional 1 tablet every other day as needed for pseudoseizures or anxiety CLONAZEPAM 75062116607 Active Ahmet Carbajal MD Active HYDROCODONE-ACETAMINOPHEN 5-325 MG ORAL TABS 1 tab two times a day HYDROCODONE-ACETAMINOPHEN 17349007894 No Longer Active Ahmet Carbajal MD Active LAMICTAL 100 MG ORAL TABS 1 tab 2 times qd. LAMOTRIGINE 76861420779 Active Ahmet Carbajal MD Active PREDNISONE 20 MG TABS 2 daily for 5 days then 1 daily for 5 days PREDNISONE 25458229450 No Longer Active Ahmet Carbajal MD Active FLUTICASONE PROPIONATE 50 MCG/ACT SUSP 1 to 2 sprays each nostril daily for allergies FLUTICASONE PROPIONATE 42724079908 Active Tila Valenzuela Active BENADRYL 25 MG CAP 4 po at bedtime for insomnia DIPHENHYDRAMINE HCL 66078034794 No Longer Active Ahmet Carbajal MD Active ADVAIR DISKUS 250-50 MCG/DOSE INH AEPB 1 puff twice a day for asthma FLUTICASONE-SALMETEROL 86720761349 No Longer Active Ahmet Carbajal MD Active KLONOPIN 1 MG ORAL TABS 1 tab po TID CLONAZEPAM 36983924133 No Longer Active Ahmet Carbajal MD Active ABILIFY MAINTENA 400 MG IM SUSR 400mg injection every 26 days ARIPIPRAZOLE 97538684793 No Longer Active Ahmet Carbajal MD Active TRAMADOL HCL 50 MG TABS 1/2-1 tab TID PRN TRAMADOL HCL 27751830531 No Longer Active Ahmet Carbajal MD Active BACTRIM DS 800-160 MG TABS 1 twice a day SULFAMETHOXAZOLE- TRIMETHOPRIM 58017745181 No Longer Active Ahmet Carbajal MD Active PROAIR HFA 108 (90 BASE) MCG/ACT AERS 2 puffs four times a day as needed 2015 ALBUTEROL SULFATE 16650596239 Active Ahmet Carbajal MD Active MONISTAT 7 COMBO PACK WOODROW 100 & 2 MG-% (9GM) VAG KIT 1 applicatorful per vagina q pm x 7 MICONAZOLE NITRATE 36633128638 No Longer Active Ahmet Carbajal MD Active FLAGYL 500 MG TAB 1 tablet by mouth bid METRONIDAZOLE 14982167585 No Longer Active Ahmet Carbajal MD Active OXYCODONE HCL ER 10 MG ORAL T12A 1/2 tab by mouth every 4 hours prn OXYCODONE HCL 96506201151 No Longer Active Ahmet Carbajal MD Active METHYLPREDNISOLONE 4 MG ORAL TABS po daily METHYLPREDNISOLONE 15107473974 No Longer Active Ahmet Carbajal MD Active LEVOFLOXACIN 500 MG ORAL TABS po daily LEVOFLOXACIN 09300613290 No Longer Active Ahmet Carbajal MD Active VIIBRYD 10 MG ORAL TABS Take 1 tablet once a day VILAZODONE HCL 67273567773 No Longer Active Ahmet Carbajal MD Active TOPAMAX 50 MG ORAL TABS 1 tab twice daily TOPIRAMATE 59530094758 No Longer Active Ahmet Carbajal MD Active DICLOFENAC SODIUM 50 MG TBEC 1 tablet by mouth four times daily PRN Pain 2015 DICLOFENAC SODIUM 35011209002 No Longer Active Ahmet Carbajal MD Active ADZENYS XR-ODT 6.3 MG ORAL TBED 1 tab po daily for ADHD AMPHETAMINE 80479889171 No Longer Active Ahmet Carbajal MD Active CHANTIX 1 MG TABS 1 twice a day to help quit smoking VARENICLINE TARTRATE 81825674750 No Longer Active Dipika Burgos MD Active CHANTIX STARTING MONTH EARNEST 0.5 MG X 11 & 1 MG X 42 TABS take as directed 2015 VARENICLINE TARTRATE 38456592437 No Longer Active Dipika Burgos MD Active TESSALON PERLES 100 MG CAP 1 to 2 tablets by mouth 3 times daily as needed for cough BENZONATATE 44803497438 No Longer Active Luigi Martínez APRN Active IMITREX 50 MG ORAL TABS 0.5 po x 1 PRN Headache. May repeat dose x 1 in 2 hours if needed SUMATRIPTAN SUCCINATE 76902301409 Active Ahmet Carbajal MD Active HYDROCODONE-ACETAMINOPHEN 5-325 MG TABS 1 to 2 four times a day as needed for pain use until can be seen by specialist HYDROCODONE- ACETAMINOPHEN 49542379778 No Longer Active Vishal Hui MD Active PROAIR HFA 108 (90 BASE) MCG/ACT AERS 2 puffs four times a day as needed 2015 ALBUTEROL SULFATE 87518882691 No Longer Active Vishal Hui MD Active PREDNISONE 20 MG TABS 2 daily for 5 days then 1 daily for 5 days PREDNISONE 57873200788 No Longer Active Vishal Hui MD Active ZITHROMAX Z-EARNEST 250 MG TABS 2 today and then 1 daily for 4 days AZITHROMYCIN 48321742248 No Longer Active Vishal Hui MD Active DICLOFENAC POTASSIUM TABS Take 1 tablet twice a day (pt. is not sure of the dose.) DICLOFENAC POTASSIUM TABS 80331809899 No Longer Active Vishal Hui MD Active VERAPAMIL HCL ER 120 MG ORAL CR-TABS Take 1 tablet by mouth twice a day. VERAPAMIL HCL 36062195025 Active Vishal Hui MD Active FLAGYL 500 MG TAB 1 tablet by mouth bid METRONIDAZOLE 22931955220 No Longer Active Vishal Hui MD Active VALIUM 5 MG TAB Take 1-2 tablets daily DIAZEPAM 65029690710 No Longer Active Fabiola Johnson APRN Active METOPROLOL TARTRATE 25 MG ORAL TABS 1/2 tablet twice daily for heart rate and blood pressure METOPROLOL TARTRATE 36742459822 No Longer Active Fabiola Johnson APRN Active MIRALAX ORAL POWD 17GMS DAILY IN WATER POLYETHYLENE GLYCOL 3350 70679498097 Active TAMARA Casey Active MIRALAX PACK 1 po qd PRN Constipation POLYETHYLENE GLYCOL 3350 06152648171 No Longer Active Ahmet Carbajal MD Active MINIPRESS 2 MG CAPS 4 cap po at night PRAZOSIN HCL 38657828764 No Longer Active Ahmet Carbajal MD Active PIROXICAM 20 MG CAPS 1 cap po qd PRN Pain PIROXICAM 04025205335 No Longer Active Ahmet Carbajal MD Active TRAMADOL HCL 50 MG TABS 1-2 po TID PRN Pain TRAMADOL HCL 60426460255 No Longer Active Ahmet Carbajal MD Active METOPROLOL TARTRATE 50 MG TAB 1 po bid METOPROLOL TARTRATE 55168513293 No Longer Active Ahmet Carbajal MD Active ABILIFY 15 MG ORAL TABS 1 tab daily ARIPIPRAZOLE 99274704630 No Longer Active Ahmet Carbajal MD Active PROZAC 20 MG ORAL CAPS 1 tab daily FLUOXETINE HCL 04255920327 No Longer Active Ahmet Carbajal MD Active AMBIEN 5 MG ORAL TABS 1 tab at bedtime ZOLPIDEM TARTRATE 59562620123 No Longer Active Ahmet Carbajal MD Active PREDNISONE 20 MG TAB 2 tabs daily for 4 days, 1 tab daily for 4 days, 1/2 tab daily for 4 days PREDNISONE 76666880160 No Longer Active Ahmet Carbajal MD Active KEFLEX 500 MG CAP 1 po TID x 10 days CEPHALEXIN 33678053049 No Longer Active Vishal Hui MD Active SAPHRIS 5 MG SUBL 1 po bid ASENAPINE MALEATE 53030636650 No Longer Active Jillina Mauricio ANCHOR TACK P[employer]ER Active LATUDA 80 MG TABS Take one by mouth daily LURASIDONE HCL 44884765933 No Longer Active Jillina Frazell ANCHOR TACK P[employer]ER Active AMLODIPINE BESYLATE 5 MG TABS 1 tablet by mouth daily AMLODIPINE BESYLATE 96488515114 No Longer Active Jillina Mauricio WALTERSN Active AMITRIPTYLINE HCL 100 MG TAB one at hs AMITRIPTYLINE HCL 38553147571 No Longer Active Vishal Hui MD Active TRAZODONE HCL 100 MG TAB take 1 at bedtime TRAZODONE HCL 73803351861 No Longer Active Vishal Hui MD Active VYVANSE 40 MG CAPS 1 daily, LISDEXAMFETAMINE DIMESYLATE 34508931738 No Longer Active Vishal Hui MD Active IBUPROFEN 600 MG TAB 1 po TID PRN IBUPROFEN 11041578783 No Longer Active Vishal Hui MD Active PROZAC 20 MG CAP Take one by mouth daily FLUOXETINE HCL 90294900442 No Longer Active Vishal Hui MD Active BACTRIM DS 800-160 MG TABS 1 pill by mouth twice daily SULFAMETHOXAZOLE-TRIMETHOPRIM 07232538491 No Longer Active Sahara Rodriguez MD PhD Active DIFLUCAN 150 MG TAB 1 tablet by mouth daily FLUCONAZOLE 03548967839 No Longer Active Vishal Hui MD Active TIZANIDINE HCL 4 MG TABS 1 po q6hr PRN Muscle Spasm/Back Pain TIZANIDINE HCL 85122175572 Active Vishal Hui MD Active CLINDAMYCIN HCL 150 MG CAPS 1 four times a day CLINDAMYCIN HCL 36546644038 No Longer Active Neeraj Collins MD Active KEFLEX 500 MG ORAL CAPS 1 cap QID by mouth CEPHALEXIN 46512129345 No Longer Active Neeraj Collins MD Active DIFLUCAN 150 MG TABS 1 pill every other day x 2 doses FLUCONAZOLE 91712504348 No Longer Active Sahara Rodriguez MD PhD Active MELATONIN 3 MG CAPS 2 po q hs MELATONIN 64415149430 No Longer Active Sahara Rodriguez MD PhD Active MULTIVITAMINS CAPS Take one by mouth daily MULTIPLE VITAMIN 76109483175 No Longer Active Sahara Rodriguez MD PhD Active BACTRIM DS 800-160 MG TAB 1 tab by mouth twice daily TRIMETHOPRIM-SULFAMETHOXAZOLE 86284342949 No Longer Active Sahara Rodriguez MD PhD Active [facility] PROBIOTIC ORAL CHEW 2 daily po PROBIOTIC PRODUCT 59300390253 No Longer Active Sahara Rodriguez MD PhD Active BACTRIM DS 800-160 MG TABS 1 po BID x 7 days SULFAMETHOXAZOLE-TRIMETHOPRIM 22501977402 No Longer Active Vishal Hui MD Active CHANTIX STARTING MONTH EARNEST 0.5 MG X 11 & 1 MG X 42 TABS 0.5mg daily for 3 days , then 0.5mg BID for 4 days, then 1mg BID VARENICLINE TARTRATE 85808904473 No Longer Active TAMARA Gray Active VERAPAMIL HCL CR 120 MG TAB CR 1 po bid VERAPAMIL HCL 62747673563 No Longer Active Vishal Hui MD Active METOPROLOL SUCCINATE 50 MG TB24 1 tablet by mouth daily METOPROLOL SUCCINATE 86430241232 No Longer Active Vishal Hui MD Active SAPHRIS 10 MG SUBL 1 tab po bid ASENAPINE MALEATE 86629521999 No Longer Active Vishal Hui MD Active LISINOPRIL 20 MG TABS 1 tab po qd LISINOPRIL 55994522312 No Longer Active Vishal Hui MD Active LATUDA 20 MG TABS Take one by mouth daily LURASIDONE HCL 10291739845 No Longer Active Vishal Hui MD Active TRAZODONE HCL 50 MG TABS 1/2 tab po qd prn for anxiety TRAZODONE HCL 86823604120 No Longer Active Vishal Hui MD Active OMEPRAZOLE 20 MG TBEC 1 po q a.m. 30min prior to first food intake OMEPRAZOLE 88996971465 Active TAMARA Casey Active RANITIDINE HCL 150 MG CAPS 1 twice a day RANITIDINE HCL 54425434295 Active Jilljanee Martínez APRN Active LINZESS 290 MCG CAPS Take one by mouth daily LINACLOTIDE 05854058112 No Longer Active Vishal Hui MD Active SAPHRIS 5 MG SUBL 1 tab po qd ASENAPINE MALEATE 75649638158 No Longer Active Vishal Hui MD Active ZALEPLON 10 MG CAPS 1 cap po every other night ZALEPLON 90524221424 No Longer Active Vishal Hui MD Active LYRICA 50 MG CAPS 1 tab po TID PREGABALIN 81886367523 No Longer Active Vishal Hui MD Active LORATADINE 10 MG TABS 1 tab po qd LORATADINE 14986717153 No Longer Active Vishal Hui MD Active VERAPAMIL HCL ER 180 MG CR-TABS 1 tab po bid VERAPAMIL HCL 85439179265 No Longer Active Vishal Hui MD Active MIRALAX POWD 1 capfull once daily POLYETHYLENE GLYCOL 3350 36323215942 No Longer Active Vishal Hui MD Active PREDNISONE 20 MG TABS 1 tab po qd PREDNISONE 55180266128 No Longer Active Renzo Thornton DO Active LEVOFLOXACIN 500 MG TABS 1 tab po qd LEVOFLOXACIN 69163196239 No Longer Active Renzo W Norberto DO Active BUSPIRONE HCL 15 MG TABS 1 tab po TID BUSPIRONE HCL 99040157054 No Longer Active Renzo Thornton DO Active BENZTROPINE MESYLATE 1 MG TABS 1 tab po qd BENZTROPINE MESYLATE 26769254844 No Longer Active Renzo Thornton DO Active ATENOLOL 25 MG TABS 1 tab po qd ATENOLOL 98024909208 No Longer Active Renzo Thornton DO Active ESCITALOPRAM OXALATE 20 MG TABS 1 tab po qd ESCITALOPRAM OXALATE 56311717584 No Longer Active Renzo Thornton DO Active ADVAIR DISKUS 250-50 MCG/DOSE AEPB 1 puff BID FLUTICASONE-SALMETEROL 62072991622 No Longer Active Renzo Thornton DO Active PREDNISONE 20 MG TAB 2 tabs daily for 3 days, 1 tab daily for 3 days, 1/2 tab daily for 2 days PREDNISONE 17374694200 No Longer Active Vishal Hui MD Active CEFDINIR 300 MG CAPS by mouth twice a day CEFDINIR 59436318741 No Longer Active Vishal Hui MD Active LANSOPRAZOLE 30 MG CPDR 1 cap po qd LANSOPRAZOLE 58403493613 No Longer Active Vishal Hui MD Active BACLOFEN 20 MG TABS 1 tab po tid BACLOFEN 62462744206 No Longer Active Vishal Hui MD Active ADVAIR DISKUS 250-50 MCG/DOSE AEPB 1 puff BID ADVAIR DISKUS 250-50 MCG/DOSE AEPB FLUTICASONE-SALMETEROL Inactive ESCITALOPRAM OXALATE 20 MG TABS 1 tab po qd ESCITALOPRAM OXALATE 20 MG TABS 917041 ESCITALOPRAM OXALATE Inactive ATENOLOL 25 MG TABS 1 tab po qd ATENOLOL 25 MG TABS 482537 ATENOLOL Inactive BENZTROPINE MESYLATE 1 MG TABS 1 tab po qd BENZTROPINE MESYLATE 1 MG TABS 437954 BENZTROPINE MESYLATE Inactive BUSPIRONE HCL 15 MG TABS 1 tab po TID BUSPIRONE HCL 15 MG TABS 552402 BUSPIRONE HCL Inactive LEVOFLOXACIN 500 MG TABS 1 tab po qd LEVOFLOXACIN 500 MG TABS 884277 LEVOFLOXACIN Inactive PREDNISONE 20 MG TABS 1 tab po qd PREDNISONE 20 MG TABS 302916 PREDNISONE Inactive MIRALAX POWD 1 capfull once daily MIRALAX POWD 966253 POLYETHYLENE GLYCOL 3350 Inactive VERAPAMIL HCL ER 180 MG CR-TABS 1 tab po bid VERAPAMIL HCL ER 180 MG CR-TABS VERAPAMIL HCL Inactive LORATADINE 10 MG TABS 1 tab po qd LORATADINE 10 MG TABS 494987 LORATADINE Inactive LYRICA 50 MG CAPS 1 tab po TID LYRICA 50 MG CAPS PREGABALIN Inactive ZALEPLON 10 MG CAPS 1 cap po every other night ZALEPLON 10 MG CAPS 522732 ZALEPLON Inactive SAPHRIS 5 MG SUBL 1 tab po qd SAPHRIS 5 MG SUBL ASENAPINE MALEATE Inactive TRAZODONE HCL 50 MG TABS 1/2 tab po qd prn for anxiety TRAZODONE HCL 50 MG TABS 082267 TRAZODONE HCL Inactive LATUDA 20 MG TABS Take one by mouth daily LATUDA 20 MG TABS LURASIDONE HCL Inactive LISINOPRIL 20 MG TABS 1 tab po qd LISINOPRIL 20 MG TABS 446143 LISINOPRIL Inactive SAPHRIS 10 MG SUBL 1 [...] twice daily BACTRIM DS 800-160 MG TAB 349504 TRIMETHOPRIM-SULFAMETHOXAZOLE Inactive MULTIVITAMINS CAPS Take one by mouth daily MULTIVITAMINS CAPS MULTIPLE VITAMIN Inactive MELATONIN 3 MG CAPS 2 po q hs MELATONIN 3 MG CAPS 072667 MELATONIN Inactive KEFLEX 500 MG ORAL CAPS 1 cap QID by mouth KEFLEX 500 MG ORAL CAPS 772109 CEPHALEXIN Inactive CLINDAMYCIN HCL 150 MG CAPS 1 four times a day CLINDAMYCIN HCL 150 MG CAPS 342847 CLINDAMYCIN HCL Inactive DIFLUCAN 150 MG TAB 1 tablet by mouth daily DIFLUCAN 150 MG TAB 592568 FLUCONAZOLE Inactive PROZAC 20 MG CAP Take one by mouth daily PROZAC 20 MG CAP 852520 FLUOXETINE HCL Inactive IBUPROFEN 600 MG TAB 1 po TID PRN IBUPROFEN 600 MG TAB 256516 IBUPROFEN Inactive VYVANSE 40 MG CAPS 1 daily, VYVANSE 40 MG CAPS LISDEXAMFETAMINE DIMESYLATE Inactive TRAZODONE HCL 100 MG TAB take 1 at bedtime TRAZODONE HCL 100 MG TAB 529169 TRAZODONE HCL Inactive AMITRIPTYLINE HCL 100 MG TAB one at hs AMITRIPTYLINE HCL 100 MG TAB 188668 AMITRIPTYLINE HCL Inactive AMLODIPINE BESYLATE 5 MG TABS 1 tablet by mouth daily AMLODIPINE BESYLATE 5 MG TABS 413720 AMLODIPINE BESYLATE Inactive LATUDA 80 MG TABS Take one by mouth daily LATUDA 80 MG TABS LURASIDONE HCL Inactive SAPHRIS 5 MG SUBL 1 po bid SAPHRIS 5 MG SUBL ASENAPINE MALEATE Inactive PREDNISONE 20 MG TAB 2 tabs daily for 4 days, 1 tab daily for 4 days, 1/2 tab daily for 4 days PREDNISONE 20 MG TAB 348431 PREDNISONE Inactive AMBIEN 5 MG ORAL TABS 1 tab at bedtime AMBIEN 5 MG ORAL TABS 624208 ZOLPIDEM TARTRATE Inactive PROZAC 20 MG ORAL CAPS 1 tab daily PROZAC 20 MG ORAL CAPS 232525 FLUOXETINE HCL Inactive ABILIFY 15 MG ORAL TABS 1 tab daily ABILIFY 15 MG ORAL TABS 373251 ARIPIPRAZOLE Inactive METOPROLOL TARTRATE 50 MG TAB 1 po bid METOPROLOL TARTRATE 50 MG TAB 231906 METOPROLOL TARTRATE Inactive TRAMADOL HCL 50 MG TABS 1-2 po TID PRN Pain TRAMADOL HCL 50 MG TABS 824601 TRAMADOL HCL Inactive PIROXICAM 20 MG CAPS 1 cap po qd PRN Pain PIROXICAM 20 MG CAPS 932375 PIROXICAM Inactive MINIPRESS 2 MG CAPS 4 cap po at night MINIPRESS 2 MG CAPS 127982 PRAZOSIN HCL Inactive MIRALAX PACK 1 po qd PRN Constipation MIRALAX PACK 342094 POLYETHYLENE GLYCOL 3350 Inactive METOPROLOL TARTRATE 25 MG ORAL TABS 1/2 tablet twice daily for heart rate and blood pressure METOPROLOL TARTRATE 25 MG ORAL TABS 045371 METOPROLOL TARTRATE Inactive VALIUM 5 MG TAB Take 1-2 tablets daily VALIUM 5 MG TAB 084463 DIAZEPAM Inactive FLAGYL 500 MG TAB 1 tablet by mouth bid FLAGYL 500 MG TAB 308785 METRONIDAZOLE Inactive DICLOFENAC POTASSIUM TABS Take 1 tablet twice a day (pt. is not sure of the dose.) DICLOFENAC POTASSIUM TABS DICLOFENAC POTASSIUM TABS Inactive ZITHROMAX Z-EARNEST 250 MG TABS 2 today and then 1 daily for 4 days ZITHROMAX Z-EARNEST 250 MG TABS 5659384 AZITHROMYCIN Inactive PREDNISONE 20 MG TABS 2 daily for 5 days then 1 daily for 5 days PREDNISONE 20 MG TABS 848439 PREDNISONE Inactive PROAIR HFA 108 (90 BASE) MCG/ACT AERS 2 puffs four times a day as needed 2015 PROAIR HFA 108 (90 BASE) MCG/ACT AERS ALBUTEROL SULFATE Inactive HYDROCODONE-ACETAMINOPHEN 5-325 MG TABS 1 to 2 four times a day as needed for pain use until can be seen by specialist HYDROCODONE- ACETAMINOPHEN 5-325 MG TABS 011455 HYDROCODONE-ACETAMINOPHEN Inactive TESSALON PERLES 100 MG CAP 1 to 2 tablets by mouth 3 times daily as needed for cough TESSALON PERLES 100 MG CAP 768421 BENZONATATE Inactive CHANTIX STARTING MONTH EARNEST 0.5 [...] Pain 2015 DICLOFENAC SODIUM 50 MG TBEC 110945 DICLOFENAC SODIUM Inactive TOPAMAX 50 MG ORAL TABS 1 tab twice daily TOPAMAX 50 MG ORAL TABS 635004 TOPIRAMATE Inactive VIIBRYD 10 MG ORAL TABS Take 1 tablet once a day VIIBRYD 10 MG ORAL TABS VILAZODONE HCL Inactive LEVOFLOXACIN 500 MG ORAL TABS po daily LEVOFLOXACIN 500 MG ORAL TABS 324800 LEVOFLOXACIN Inactive METHYLPREDNISOLONE 4 MG ORAL TABS po daily METHYLPREDNISOLONE 4 MG ORAL TABS 637041 METHYLPREDNISOLONE Inactive OXYCODONE HCL ER 10 MG ORAL T12A 1/2 tab by mouth every 4 hours prn OXYCODONE HCL ER 10 MG ORAL T12A OXYCODONE HCL Inactive FLAGYL 500 MG TAB 1 tablet by mouth bid FLAGYL 500 MG TAB 258030 METRONIDAZOLE Inactive MONISTAT 7 COMBO PACK WOODROW 100 & 2 MG-% (9GM) VAG KIT 1 applicatorful per vagina q pm x 7 MONISTAT 7 COMBO PACK WOODROW 100 & 2 MG-% (9GM) VAG KIT MICONAZOLE NITRATE Inactive BACTRIM DS 800-160 MG TABS 1 twice a day BACTRIM DS 800-160 MG TABS 730344 SULFAMETHOXAZOLE-TRIMETHOPRIM Inactive TRAMADOL HCL 50 MG TABS 1/2-1 tab TID PRN TRAMADOL HCL 50 MG TABS 272609 TRAMADOL HCL Inactive ABILIFY MAINTENA 400 MG IM SUSR 400mg injection every 26 days ABILIFY MAINTENA 400 MG IM SUSR ARIPIPRAZOLE Inactive KLONOPIN 1 MG ORAL TABS 1 tab po TID KLONOPIN 1 MG ORAL TABS 890671 CLONAZEPAM Inactive ADVAIR DISKUS 250-50 MCG/DOSE INH AEPB 1 puff twice a day for asthma ADVAIR DISKUS 250-50 MCG/DOSE INH AEPB FLUTICASONE- SALMETEROL Inactive BENADRYL 25 MG CAP 4 po at bedtime for insomnia BENADRYL 25 MG CAP DIPHENHYDRAMINE HCL Inactive PREDNISONE 20 MG TABS 2 daily for 5 days then 1 daily for 5 days PREDNISONE 20 MG TABS 389434 PREDNISONE Inactive HYDROCODONE-ACETAMINOPHEN 5-325 MG ORAL TABS 1 tab two times a day HYDROCODONE-ACETAMINOPHEN 5-325 MG ORAL TABS 378156 HYDROCODONE-ACETAMINOPHEN Inactive ZITHROMAX Z-EARNEST 250 MG TABS 2 today and then 1 daily for 4 days ZITHROMAX Z-EARNEST 250 MG TABS 9053944 AZITHROMYCIN Inactive GUAIFENESIN-CODEINE 100-10 MG/5ML SYRP 5ml every 4 to 6 hours as needed for cough GUAIFENESIN-CODEINE 100-10 MG/5ML SYRP 967854 GUAIFENESIN-CODEINE Inactive HALOPERIDOL 10 MG ORAL TABS 1 tab q.d HALOPERIDOL 10 MG ORAL TABS 746770 HALOPERIDOL Inactive ASPIRIN 325 MG ORAL TABS 1 tab q.d ASPIRIN 325 MG ORAL TABS 440636 ASPIRIN Inactive FLUTICASONE PROPIONATE 50 MCG/ACT SUSP 2 sprays each nostril daily before bed. FLUTICASONE PROPIONATE 50 MCG/ACT SUSP 8833544 FLUTICASONE PROPIONATE Inactive ZOFRAN 4 MG TABS 1 po q6hr PRN Nausea ZOFRAN 4 MG TABS 829918 ONDANSETRON HCL Inactive KEFLEX 500 MG CAP 1 po qid KEFLEX 500 MG CAP 462848 CEPHALEXIN Inactive ACETAMINOPHEN-CODEINE 120-12 MG/5ML SOLN 5 ml by mouth every 4-6 hours if needed for cough ACETAMINOPHEN-CODEINE 120-12 MG/5ML SOLN 934142 ACETAMINOPHEN-CODEINE Inactive PREDNISONE 20 MG TAB 1 tablet daily x 4 days PREDNISONE 20 MG TAB 852592 PREDNISONE Inactive TROPICAMIDE 0.5 % OPHTH SOLN 1 drop PRN eye spasms TROPICAMIDE 0.5 % [facility] 382873 TROPICAMIDE Inactive LEVAQUIN 500 MG TABS 1 daily for infection LEVAQUIN 500 MG TABS 787320 LEVOFLOXACIN Inactive PREDNISONE 10 MG TABS 2 daily for 5 days then 1 daily for 5 days PREDNISONE 10 MG TABS 046878 PREDNISONE Inactive EQ NICOTINE 21 MG/24HR TRANS [...] for cough TESSALON PERLES 100 MG CAPS 002012 BENZONATATE Inactive CEFDINIR 300 MG CAPS by mouth twice a day CEFDINIR 300 MG CAPS 706270 CEFDINIR Inactive PREDNISONE 20 MG TAB 2 tabs daily for 3 days, 1 tab daily for 3 days, 1/2 tab daily for 2 days PREDNISONE 20 MG TAB 485614 PREDNISONE Inactive BACTRIM DS 800-160 MG TABS [...] x 10 days KEFLEX 500 MG CAP 610965 CEPHALEXIN Inactive Advance Directives Directive Description Start [...] % 11.0-15.0 platelet count 443 THOUSAND/UL 10*3/mm3 590-829 0437/03/01 mean platelet volume 8.2 fL 7.5-12.5 leukocyte [...] % 11.0-15.0 platelet count 349 THOUSAND/UL 10*3/mm3 018-543 6266/04/12 mean platelet volume 8.4 fL 7.5-12.5 Lab [...] 369 10^3/MM^3 10*3/mm3 142-424 Lab Report: Chlamydia/GC APTIMA/[id number] - Lab chlamydia DNA probe NOT DETECTED NOT DETECTED Lab Report: Chlamydia/GC APTIMA/[id number] - Microbiology Neisseria gonorrhoeae DNA probe NOT DETECTED NOT DETECTED Lab Report: Chlamydia/GC APTIMA/[id number], Urinalysis, Complete, with Reflex ... - Lab chlamydia DNA probe NOT DETECTED NOT DETECTED Lab Report: Chlamydia/GC APTIMA/[id number], Urinalysis, Complete, with Reflex ... - Microbiology Neisseria gonorrhoeae DNA probe NOT DETECTED NOT DETECTED Lab Report: Chlamydia/GC APTIMA/[id number], Urinalysis, Complete, with Reflex ... - Urinalysis microalbumin/total urine volume 2 mg/L Units converted. See lab report for original value. microalbumin/creatinine ratio, urine 9 MCG/MG CREAT mg/L <30 Lab Report: Comp. Metabolic Panel - Chemistry sodium, serum 142 mmol/L 861-266 0388/06/08 carbon dioxide, venous blood 27.6 mmol/L 21.0-32.0 potassium, serum 4.0 mmol/L 3.5-5.2 chloride, serum 105 mmol/L 98-107 blood glucose 95 mg/dL 65-110 urea nitrogen, blood 8 mg/dL 7-18 creatinine, serum 0.75 mg/dL 0.55-1.30 alanine aminotransferase (SGPT), serum 49 U/L 12-78 aspartate aminotransferase (SGOT), serum 28 U/L 15-37 calcium, serum 9.4 mg/dL 8.5-10.1 bilirubin, serum, total 0.30 mg/dL 0.00-1.00 sodium, serum 140 mmol/L 199-368 6611/08/08 carbon dioxide, venous blood 33.7 mmol/L 21.0-32.0 [...] mg/dL Encounters Code Encounter Date Provider Facility CPT-20951 Level 3 Est. Patient 10:00:25 CDT Suzan Boo [facility] CPT-50195 Level 3 Est. Patient 10:29:30 CDT Suzan Boo [facility] CPT-66957 Level 3 Est. Patient 11:04:38 CDT Renzo Thornton [facility] CPT-73492 Level 3 Est. Patient 11:15:58 LAB HEAD Renzo Thornton [facility] CPT-60564 Level 3 Est. Patient 15:28:23 LAB HEAD Suzan Boo [facility] CPT-51676 Level 4 Est. Patient 10:20:54 LAB HEAD Suzan Boo [facility] CPT-75477 Level 3 Est. Patient 11:47:37 LAB HEAD Ahmet Carbajal MD [facility] CPT-32368 Level 3 Est. Patient 10:40:11 LAB HEAD Ahmet Carbajal MD [facility] CPT-93892 Level 3 Est. Patient 15:07:06 LAB HEAD Neeraj Collins MD [facility] CPT-25418 Level 4 Est. Patient 14:45:00 LAB HEAD Ahmet Carbajal MD [facility] CPT-54221 Level 3 Est. Patient 13:59:59 CDT Luigi Mratínez [facility] CPT-35176 Level 3 Est. Patient 18:18:53 CDT Neeraj Collins MD [facility] CPT-36901 Level 3 Est. Patient 15:50:44 CDT Visahl Hui MD [facility] CPT-79077 Level 3 Est. Patient 11:36:17 CDT Ahmet Carbajal MD [facility] CPT-89085 Level 3 Est. Patient 13:29:16 CDT Vishal Hui MD [facility] CPT-95819 Level 3 Est. Patient 14:27:52 CDT Neeraj Collins MD [facility] CPT-30888 Level 3 Est. Patient 08:56:03 CDT Luigi Martínez [facility] CPT-84227 Level 4 Est. Patient 12:11:48 CDT Fabiola Johnson [facility] CPT-44025 Level 3 New Patient 16:53:37 CDT Albert Caldera MD [facility] CPT-00957 Level 3 Est. Patient 11:25:49 CDT Renzo Thornton DO [facility] CPT-78316 Level 3 Est. Patient 15:22:01 CDT Ahmet Carbajal MD [facility] CPT-67254 Level 4 Est. Patient 09:00:51 LAB HEAD Vishal Hui MD [facility] CPT-51648 Level 3 Est. Patient 11:37:33 LAB HEAD Vishal Hui MD [facility] CPT-94486 Level 3 Est. Patient 08:41:09 LAB HEAD Vishal Hui MD [facility] CPT-10966 Level 4 Est. Patient 10:19:35 LAB HEAD Vishal Hui MD [facility] CPT-43137 Level 3 Est. Patient 13:35:45 CDT Vishal Hui MD [facility] CPT-82327 Level 4 Est. Patient 10:08:37 CDT Vishal Hui MD [facility]-43263 Level 3 Est. Patient 11:22:10 CDT Vishal Hui MD [facility] CPT-83997 Level 3 Est. Patient 11:03:32 CDT Sahara Rodriguez MD [facility]-92504 Level 3 Est. Patient 09:41:35 CDT Vishal Hui MD [facility] CPT-10053 Level 3 Est. Patient 12:00:41 CDT Neeraj Collins MD [facility]-93005 Level 3 Est. Patient 09:16:24 CDT Vishal Hui MD [facility] CPT-66098 Level 4 Est. Patient 13:59:09 CDT Neeraj Collins MD [facility] CPT-93473 Level 3 Est. Patient 15:19:43 CDT Renzo Thornton DO [facility] CPT-20595 Level 3 Est. Patient 18:10:26 CDT Sahara Rodriguez MD [facility]-54848 Level 3 Est. Patient 14:49:50 CDT Vishal Hui MD [facility] CPT-26233 Level 4 Est. Patient 18:41:46 CDT Neeraj Collins MD [facility] CPT-97251 Level 4 Est. Patient 09:18:38 LAB HEAD Vishal Hui MD [facility] CPT-29187 Level 3 Est. Patient 14:43:55 LAB HEAD Vishal Hui MD [facility] CPT-02895 Level 3 Est. Patient 15:26:33 LAB HEAD Sahara Rodriguez MD [facility]-80811 Level 3 Est. Patient 10:32:14 LAB HEAD Vishal Hui MD [facility] CPT-15591 Level 3 Est. Patient 15:12:52 LAB HEAD Vishal Hui MD [facility] CPT-55210 Level 4 Est. Patient 09:19:27 CDT Vishal Hui MD [facility] CPT-50119 Level 3 Est. Patient 15:53:00 CDT Renzo Thornton [facility] CPT-44083 Level 3 Est. Patient 15:50:30 CDT Renoz Thornton [facility] CPT-01977 Level 3 Est. Patient 16:55:24 CDT Vishal Hui MD [facility] Procedures Code Procedure Name Date Entry Date Standard Description CPT-24825 Venipuncture Draw Fee 08:41:12 CDT CPT-30317 Abd compl w upright - XRAY USE ONLY 10:27:59 CDT 06/28 CPT-69953 Smoking Cessation counseling 11:15:58 LAB HEAD CPT-G0439 [facility] Annual Wellness Exam 09:30:58 LAB HEAD CPT-44288 TSH - LAB USE ONLY 08:50:26 LAB HEAD CPT-54420 CBC - LAB USE ONLY 08:50:26 LAB HEAD CPT-04554 Venipuncture Draw Fee 08:50:26 LAB HEAD CPT-92688 Abx/Therapy Injection 17:34:30 LAB HEAD CPT-43024 Nexplanon Removal with Reinsertion 14:09:32 CDT CPT-J7307 Nexplanon (Implant) 14:09:32 CDT CPT-OV Office Visit 14:09:32 CDT CPT-03195 UA w micro - LAB USE ONLY 16:21:13 CDT CPT-01719 Wet Mount - LAB USE ONLY 16:21:13 CDT CPT-05174 First Vx - Ix admin for Medicare patients 14:37:47 CDT CPT-75713 Fluzone Preservative Free Intramuscular Suspension 14:37 :47 CDT CPT-71106 Abx/Therapy Injection 13:54:22 CDT CPT-57340 Abx/Therapy Injection 08:47:09 CDT CPT-98985 Abx/Therapy Injection 13:29:56 CDT CPT-41740 Abx/Therapy Injection 08:36:16 CDT CPT-88954 Wet Mount - LAB USE ONLY 17:44:58 CDT CPT-15451 UA w micro - LAB USE ONLY 17:44:58 CDT CPT-31763 CMP - LAB USE ONLY 17:44:58 CDT CPT-75879 Venipuncture Draw Fee 17:44:58 CDT CPT-11684 Cervical Min 4V - XRAY USE ONLY 09:01:40 CDT CPT-45535 Chest 2V Frontal and Lat - XRAY USE ONLY 11:06:31 CDT CPT-52485 EKG Trac and Interp - XRAY USE ONLY 11:31:43 CDT 08/26 CPT-J3420 Vitamin B12 1000mcg (Cyanocobalamin) 08:10:26 LAB HEAD 04/12 CPT-74355 Abx/Therapy Injection 08:10:26 LAB HEAD CPT-G0438 Initial Annual Wellness Exam 19:01:01 LAB HEAD CPT-J3420 Vitamin B12 1000mcg (Cyanocobalamin) 16:57:46 CDT 08/14 CPT-47474 Recombivax HB Injection Suspension 5 MCG/0.5ML 08:37:50 LAB HEAD CPT-61387 Immunization Single Admin 08:37:50 LAB HEAD CPT-J3420 Vitamin B12 1000mcg (Cyanocobalamin) 08:32:16 LAB HEAD 03/11 CPT-35360 Abx/Therapy Injection 08:32:16 LAB HEAD CPT-39500 Chest 2V Frontal and Lat 11:46:38 LAB HEAD CPT-38685 Venipuncture Draw Fee 09:12:45 LAB HEAD CPT-J3420 Vitamin B12 1000mcg (Cyanocobalamin) 08:50:15 LAB HEAD 02/08 CPT-52172 Abx/Therapy Injection 08:50:15 LAB HEAD CPT-Cryo Cryotherapy 10:19:35 LAB HEAD CPT-000 Give Appropriate Flu Vaccine 09:22:16 CDT CPT-J3420 Vitamin B12 1000mcg (Cyanocobalamin) 19:08:57 CDT 01/11 CPT-57499 Abx/Therapy Injection 19:08:57 CDT CPT-J3420 Vitamin B12 1000mcg (Cyanocobalamin) 08:19:08 CDT 12/11 CPT-43732 Abx/Therapy Injection 08:19:08 CDT CPT-J3420 Vitamin B12 1000mcg (Cyanocobalamin) 14:48:00 CDT 11/09 CPT-59120 Abx/Therapy Injection 14:47:59 CDT CPT-J3420 Vitamin B12 1000mcg (Cyanocobalamin) 08:34:04 CDT 10/09 CPT-66427 Abx/Therapy Injection 08:34:04 CDT CPT-J3420 Vitamin B12 1000mcg (Cyanocobalamin) 09:18:52 CDT 09/11 CPT-00591 Abx/Therapy Injection 09:18:52 CDT CPT-J3420 Vitamin B12 1000mcg (Cyanocobalamin) 08:35:44 CDT 09/04 CPT-07097 Abx/Therapy Injection 08:35:44 CDT CPT-29787 Immunization Single Admin 11:07:16 CDT CPT-52429 Hepatitis B adult IM 11:07:16 CDT CPT-J3420 Vitamin B12 1000mcg (Cyanocobalamin) 11:00:49 CDT 08/28 CPT-J1040 Depo Medrol 80 mg (Methyl Prednisolone Acetate) 11:00: 49 CDT CPT-60767 Abx/Therapy Injection 11:00:49 CDT CPT-J1040 Depo Medrol 80 mg (Methyl Prednisolone Acetate) 09:16: 23 CDT CPT-J3420 Vitamin B12 1000mcg (Cyanocobalamin) 08:27:05 CDT 08/20 CPT-27498 Abx/Therapy Injection 08:27:05 CDT CPT-30832 Recombivax HB Injection Suspension 5 MCG/0.5ML 10:00:41 CDT CPT-58989 Administration single or combination vaccine inc oral 10 :00:41 CDT CPT-21575 Sono transvag pelvis non OB uterus ovaries cervix 16:36: 57 CDT CPT-83803 LS spine comp w obliq 09:50:55 LAB HEAD CPT-53518 Abd compl w upright 09:50:55 LAB HEAD CPT-J1100 Decadron 4mg (Dexamethasone) 15:51:24 LAB HEAD CPT-J1030 Depo Medrol 40 mg (Methyl Prednisolone Acetate) 15:51: 24 LAB HEAD CPT-91948 Abx/Therapy Injection 15:51:24 LAB HEAD CPT-J1100 Decadron 4mg (Dexamethasone) 15:26:33 LAB HEAD CPT-J1030 Depo Medrol 40 mg (Methyl Prednisolone Acetate) 15:26: 33 LAB HEAD CPT-36306 Sono retroperitoneal complete kidneys and bladder 17:15: 30 CDT CPT-21518 Abd compl w upright 16:09:25 CDT CPT-J1100 Decadron 8mg (Dexamethasone) 17:07:57 CDT CPT-50160 Abx/Therapy Injection 17:07:57 CDT CPT-J1100 Decadron 8mg (Dexamethasone) 16:55:24 CDT CPT-06324 Chest 2V Frontal and Lat 16:32:44 CDT
--- OUTSIDE RECORDS SUMMARY | 2016-11-04 19:05 | XMS REPORT | Clinical Summary ---
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 V72.31 Active Suzan Boo [...] Cervicalgia Preop exam V72.84 Active Suzan Rajeev MEDICAL INSURANCE COLLECTOR Preoperative examination, unspecified Anxiety Disorder ICD-300.00 Inactive Vishal Hui MD Pneumonia, organism unspecified ICD-486 Inactive Vishal Hui MD Flank pain, right ICD-789.09 Inactive Vishal Hui MD G E R D ICD-530.81 Inactive Vishal Hui MD Health screening ICD-V70.0 Inactive Suzan Boo MEDICAL INSURANCE COLLECTOR Sinus tachycardia ICD-427.89 Inactive Suzan Boo MEDICAL INSURANCE COLLECTOR Smoker/tobacco use disorder-smoking cessation discussed ICD-305.1 Inactive [...] twice a day for 5 days TRIMETHOPRIM-SULFAMETHOXAZOLE 64448760177 Active Samantha WAGNERA Active MUPIROCIN 2 % OINT apply twice a day MUPIROCIN 27480131824 No Longer Active Suzan Boo APRN Active BACTRIM DS 800-160 MG TABS 1 twice a day SULFAMETHOXAZOLE-TRIMETHOPRIM 86782191608 No Longer Active Suzan Boo APRN Active DIFLUCAN 150 MG TABS 1 by mouth for yeast FLUCONAZOLE 64378253785 No Longer Active Suzan Boo APRN Active AMITIZA 8 MCG ORAL CAPS 1 capsule twice daily LUBIPROSTONE 94310363075 Active Sheila Calderon LPN Active LINZESS 290 MCG ORAL CAPS 1 tab 30 min prior to first meal each day. LINACLOTIDE 62038547798 No Longer Active Sheila Calderon LPN Active AMITIZA 8 MCG ORAL CAPS 1 tab BID LUBIPROSTONE 07608124191 No Longer Active Lynda Xiao LPN Active LACTULOSE 10 GM/15ML ORAL SOLN 30mL oral BID for IBS-C LACTULOSE 72405222655 Active Suzan Boo APRN Active TESSALON PERLES 100 MG CAPS 1 three times a day as needed for cough BENZONATATE 98712766810 No Longer Active Suzan Boo APRN Active BACTRIM DS 800-160 MG TABS 1 twice a day SULFAMETHOXAZOLE-TRIMETHOPRIM 89291603275 No Longer Active Suzan Boo APRN Active DIFLUCAN 150 MG TABS 1 by mouth for yeast FLUCONAZOLE 97512582433 No Longer Active Suzan Boo APRN Active EQ NICOTINE 21 MG/24HR TRANS PT24 Apply daily to stop smoking NICOTINE 09673321091 No Longer Active Suzan Boo APRN Active PREDNISONE 10 MG TABS 2 daily for 5 days then 1 daily for 5 days PREDNISONE 10134247206 No Longer Active Suzan Boo APRN Active LEVAQUIN 500 MG TABS 1 daily for infection LEVOFLOXACIN 72798294309 No Longer Active Suzan Boo APRN Active TROPICAMIDE 0.5 % OPHTH SOLN 1 drop PRN eye spasms TROPICAMIDE 96978423637 No Longer Active Suzan Boo APRN Active PREDNISONE 20 MG TAB 1 tablet daily x 4 days PREDNISONE 87929321628 No Longer Active Suzan Boo APRN Active ACETAMINOPHEN-CODEINE 120-12 MG/5ML SOLN 5 ml by mouth every 4-6 hours if needed for cough ACETAMINOPHEN-CODEINE 55477936475 No Longer Active Suzan Boo APRN Active KEFLEX 500 MG CAP 1 po qid CEPHALEXIN 67538269576 No Longer Active Suzan Boo APRN Active FLOVENT HFA 110 MCG/ACT AERO 2 puffs inhaled b.i.d. FLUTICASONE PROPIONATE HFA 64801283922 Active Renzo Thornton DO Active RISPERDAL 4 MG ORAL TABS 1 tab at bedtime RISPERIDONE 47169054037 Active Samantha WAGNERA Active ZOFRAN 4 MG TABS 1 po q6hr PRN Nausea ONDANSETRON HCL No Longer Active Suzan Boo APRN Active FLUTICASONE PROPIONATE 50 MCG/ACT SUSP 2 sprays each nostril daily before bed. FLUTICASONE PROPIONATE 40097207906 No Longer Active Suzan Boo APRN Active ASPIRIN 325 MG ORAL TABS 1 tab q.d ASPIRIN 34890581515 No Longer Active Suzan Boo APRN Active HALOPERIDOL 10 MG ORAL TABS 1 tab q.d HALOPERIDOL 77340610227 No Longer Active Suzan Boo APRN Active GUAIFENESIN-CODEINE 100-10 MG/5ML SYRP 5ml every 4 to 6 hours as needed for cough GUAIFENESIN-CODEINE 33429945711 No Longer Active Suzan Boo APRN Active ZITHROMAX Z-EARNEST 250 MG TABS 2 today and then 1 daily for 4 days AZITHROMYCIN 07508187033 No Longer Active Suzan Boo APRN Active CLONAZEPAM 1 MG ORAL TABS 1 twice a day and an additional 1 tablet every other day as needed for pseudoseizures or anxiety CLONAZEPAM 67319088219 Active Suzan Boo APRN Active HYDROCODONE-ACETAMINOPHEN 5-325 MG ORAL TABS 1 tab two times a day HYDROCODONE-ACETAMINOPHEN 73898013419 No Longer Active Ahmet Carbajal MD Active LAMICTAL 100 MG ORAL TABS 1 tab 2 times qd. LAMOTRIGINE 18395713647 Active Ahmet Carbajal MD Active PREDNISONE 20 MG TABS 2 daily for 5 days then 1 daily for 5 days PREDNISONE 79878169511 No Longer Active Ahmet Carbajal MD Active FLUTICASONE PROPIONATE 50 MCG/ACT SUSP 1 to 2 sprays each nostril daily for allergies FLUTICASONE PROPIONATE 14089495417 Active Tila Valenzuela Active BENADRYL 25 MG CAP 4 po at bedtime for insomnia DIPHENHYDRAMINE HCL 41627001459 No Longer Active Ahmet Carbajal MD Active ADVAIR DISKUS 250-50 MCG/DOSE INH AEPB 1 puff twice a day for asthma FLUTICASONE-SALMETEROL 67589342024 No Longer Active Ahmet Carbajal MD Active KLONOPIN 1 MG ORAL TABS 1 tab po TID CLONAZEPAM 41544699801 No Longer Active Ahmet Carbajal MD Active ABILIFY MAINTENA 400 MG IM SUSR 400mg injection every 26 days ARIPIPRAZOLE 22249241368 No Longer Active Ahmet Carbajal MD Active TRAMADOL HCL 50 MG TABS 1/2-1 tab TID PRN TRAMADOL HCL 58577280757 No Longer Active Ahmet Carbajal MD Active BACTRIM DS 800-160 MG TABS 1 twice a day SULFAMETHOXAZOLE- TRIMETHOPRIM 54218310174 No Longer Active Ahmet Carbajal MD Active PROAIR HFA 108 (90 BASE) MCG/ACT AERS 2 puffs four times a day as needed 2015 ALBUTEROL SULFATE 07034661301 Active Honey Hinton MEDICAL INSURANCE COLLECTOR Active MONISTAT 7 COMBO PACK WOODROW 100 & 2 MG-% (9GM) VAG KIT 1 applicatorful per vagina q pm x 7 MICONAZOLE NITRATE 28649563718 No Longer Active Ahmet Carbajal MD Active FLAGYL 500 MG TAB 1 tablet by mouth bid METRONIDAZOLE 01140925520 No Longer Active Ahmet Carbajal MD Active OXYCODONE HCL ER 10 MG ORAL T12A 1/2 tab by mouth every 4 hours prn OXYCODONE HCL 05631499717 No Longer Active Ahmet Carbajal MD Active METHYLPREDNISOLONE 4 MG ORAL TABS po daily METHYLPREDNISOLONE 23383078702 No Longer Active Ahmet Carbajal MD Active LEVOFLOXACIN 500 MG ORAL TABS po daily LEVOFLOXACIN 47014626376 No Longer Active Ahmet Carbajal MD Active VIIBRYD 10 MG ORAL TABS Take 1 tablet once a day VILAZODONE HCL 29382711151 No Longer Active Ahmet Carbajal MD Active TOPAMAX 50 MG ORAL TABS 1 tab twice daily TOPIRAMATE 81626325104 No Longer Active Ahmte Carbajal MD Active DICLOFENAC SODIUM 50 MG TBEC 1 tablet by mouth four times daily PRN Pain 2015 DICLOFENAC SODIUM 60867846518 No Longer Active Ahmet Carbajal MD Active ADZENYS XR-ODT 6.3 MG ORAL TBED 1 tab po daily for ADHD AMPHETAMINE 23077642418 No Longer Active Ahmet Carbajal MD Active CHANTIX 1 MG TABS 1 twice a day to help quit smoking VARENICLINE TARTRATE 50737165363 No Longer Active Dipika Burgos MD Active CHANTIX STARTING MONTH EARNEST 0.5 MG X 11 & 1 MG X 42 TABS take as directed 2015 VARENICLINE TARTRATE 47250069703 No Longer Active Dipika Burgos MD Active TESSALON PERLES 100 MG CAP 1 to 2 tablets by mouth 3 times daily as needed for cough BENZONATATE 51244728542 No Longer Active Luigi Martínez APRN Active IMITREX 50 MG ORAL TABS 0.5 po x 1 PRN Headache. May repeat dose x 1 in 2 hours if needed SUMATRIPTAN SUCCINATE 07506707835 Active Ahmet Carbajal MD Active HYDROCODONE-ACETAMINOPHEN 5-325 MG TABS 1 to 2 four times a day as needed for pain use until can be seen by specialist HYDROCODONE- ACETAMINOPHEN 31438611500 No Longer Active Vishal Hui MD Active PROAIR HFA 108 (90 BASE) MCG/ACT AERS 2 puffs four times a day as needed 2015 ALBUTEROL SULFATE 91829339740 No Longer Active Vishal Hui MD Active PREDNISONE 20 MG TABS 2 daily for 5 days then 1 daily for 5 days PREDNISONE 15556982115 No Longer Active Vishal Hui MD Active ZITHROMAX Z-EARNEST 250 MG TABS 2 today and then 1 daily for 4 days AZITHROMYCIN 32972694503 No Longer Active Vishal Hui MD Active DICLOFENAC POTASSIUM TABS Take 1 tablet twice a day (pt. is not sure of the dose.) DICLOFENAC POTASSIUM TABS 59924304110 No Longer Active Vishal Hui MD Active VERAPAMIL HCL ER 120 MG ORAL CR-TABS Take 1 tablet by mouth twice a day. VERAPAMIL HCL 28775629080 Active Vishal Hui MD Active FLAGYL 500 MG TAB 1 tablet by mouth bid METRONIDAZOLE 06224205348 No Longer Active Vishal Hui MD Active VALIUM 5 MG TAB Take 1-2 tablets daily DIAZEPAM 98038356364 No Longer Active Fabiola Johnson APRN Active METOPROLOL TARTRATE 25 MG ORAL TABS 1/2 tablet twice daily for heart rate and blood pressure METOPROLOL TARTRATE 12946066053 No Longer Active Fabiola Johnson APRN Active MIRALAX ORAL POWD 17GMS DAILY IN WATER POLYETHYLENE GLYCOL 3350 10571073606 Active TAMARA Casey Active MIRALAX PACK 1 po qd PRN Constipation POLYETHYLENE GLYCOL 3350 85939841255 No Longer Active Ahmet Carbajal MD Active MINIPRESS 2 MG CAPS 4 cap po at night PRAZOSIN HCL 58629259048 No Longer Active Ahmet Carbajal MD Active PIROXICAM 20 MG CAPS 1 cap po qd PRN Pain PIROXICAM 12482091880 No Longer Active Ahmet Carbajal MD Active TRAMADOL HCL 50 MG TABS 1-2 po TID PRN Pain TRAMADOL HCL 12630199092 No Longer Active Ahmet Carbajal MD Active METOPROLOL TARTRATE 50 MG TAB 1 po bid METOPROLOL TARTRATE 38914496634 No Longer Active Ahmet Carbajal MD Active ABILIFY 15 MG ORAL TABS 1 tab daily ARIPIPRAZOLE 47465152189 No Longer Active Ahmet Carbajal MD Active PROZAC 20 MG ORAL CAPS 1 tab daily FLUOXETINE HCL 81615016304 No Longer Active Ahmet Carbajal MD Active AMBIEN 5 MG ORAL TABS 1 tab at bedtime ZOLPIDEM TARTRATE 16800585876 No Longer Active Ahmet Carbajal MD Active PREDNISONE 20 MG TAB 2 tabs daily for 4 days, 1 tab daily for 4 days, 1/2 tab daily for 4 days PREDNISONE 82843732068 No Longer Active Ahmet Carbajal MD Active KEFLEX 500 MG CAP 1 po TID x 10 days CEPHALEXIN 48178410958 No Longer Active Vishal Hui MD Active SAPHRIS 5 MG SUBL 1 po bid ASENAPINE MALEATE 09073543797 No Longer Active Luigi Martínez APRN Active LATUDA 80 MG TABS Take one by mouth daily LURASIDONE HCL 35603549579 No Longer Active Luigi Martínez APRN Active AMLODIPINE BESYLATE 5 MG TABS 1 tablet by mouth daily AMLODIPINE BESYLATE 72299913450 No Longer Active Luigi Martínez APRN Active AMITRIPTYLINE HCL 100 MG TAB one at hs AMITRIPTYLINE HCL 11708563538 No Longer Active Vishal Hui MD Active TRAZODONE HCL 100 MG TAB take 1 at bedtime TRAZODONE HCL 12985068855 No Longer Active Vishal Hui MD Active VYVANSE 40 MG CAPS 1 daily, LISDEXAMFETAMINE DIMESYLATE 45759629395 No Longer Active Vishal Hui MD Active IBUPROFEN 600 MG TAB 1 po TID PRN IBUPROFEN 65480044914 No Longer Active Vishal Hui MD Active PROZAC 20 MG CAP Take one by mouth daily FLUOXETINE HCL 59784064409 No Longer Active Vishal Hui MD Active BACTRIM DS 800-160 MG TABS 1 pill by mouth twice daily SULFAMETHOXAZOLE-TRIMETHOPRIM 01505113517 No Longer Active Sahara Rodriguez MD PhD Active DIFLUCAN 150 MG TAB 1 tablet by mouth daily FLUCONAZOLE 18939177936 No Longer Active Vishal Hui MD Active TIZANIDINE HCL 4 MG TABS 1 po q6hr PRN Muscle Spasm/Back Pain TIZANIDINE HCL 83760056788 Active TAMARA Casey Active CLINDAMYCIN HCL 150 MG CAPS 1 four times a day CLINDAMYCIN HCL 10435761243 No Longer Active Neeraj Collins MD Active KEFLEX 500 MG ORAL CAPS 1 cap QID by mouth CEPHALEXIN 25997609328 No Longer Active Neeraj Collins MD Active DIFLUCAN 150 MG TABS 1 pill every other day x 2 doses FLUCONAZOLE 05113993066 No Longer Active Sahara Rodriguez MD PhD Active MELATONIN 3 MG CAPS 2 po q hs MELATONIN 72059414814 No Longer Active Sahara Rodriguez MD PhD Active MULTIVITAMINS CAPS Take one by mouth daily MULTIPLE VITAMIN 06057644558 No Longer Active Sahara Rodriguez MD PhD Active BACTRIM DS 800-160 MG TAB 1 tab by mouth twice daily TRIMETHOPRIM-SULFAMETHOXAZOLE 88430361492 No Longer Active Sahara Rodriguez MD PhD Active [facility] PROBIOTIC ORAL CHEW 2 daily po PROBIOTIC PRODUCT 27260645391 No Longer Active Sahara Rodriguez MD PhD Active BACTRIM DS 800-160 MG TABS 1 po BID x 7 days SULFAMETHOXAZOLE-TRIMETHOPRIM 51835920358 No Longer Active Vishal Hui MD Active CHANTIX STARTING MONTH EARNEST 0.5 MG X 11 & 1 MG X 42 TABS 0.5mg daily for 3 days , then 0.5mg BID for 4 days, then 1mg BID VARENICLINE TARTRATE 15083100574 No Longer Active TAMARA Gray Active VERAPAMIL HCL CR 120 MG TAB CR 1 po bid VERAPAMIL HCL 38221874350 No Longer Active Vishal Hui MD Active METOPROLOL SUCCINATE 50 MG TB24 1 tablet by mouth daily METOPROLOL SUCCINATE 34834111054 No Longer Active Vishal Hui MD Active SAPHRIS 10 MG SUBL 1 tab po bid ASENAPINE MALEATE 55804010230 No Longer Active Vishal Hui MD Active LISINOPRIL 20 MG TABS 1 tab po qd LISINOPRIL 37927791848 No Longer Active Vishal Hui MD Active LATUDA 20 MG TABS Take one by mouth daily LURASIDONE HCL 35930629384 No Longer Active Vishal Hui MD Active TRAZODONE HCL 50 MG TABS 1/2 tab po qd prn for anxiety TRAZODONE HCL 40575766354 No Longer Active Vishal Hui MD Active OMEPRAZOLE 20 MG TBEC 1 po q a.m. 30min prior to first food intake OMEPRAZOLE 25636539601 Active TAMARA Casey Active RANITIDINE HCL 150 MG CAPS 1 twice a day RANITIDINE HCL 52924949145 Active Lynda Xiao CAMPUS COORDINATOR Active LINZESS 290 MCG CAPS Take one by mouth daily LINACLOTIDE 01989305496 No Longer Active Vishal Hui MD Active SAPHRIS 5 MG SUBL 1 tab po qd ASENAPINE MALEATE 63001958131 No Longer Active Vishal Hui MD Active ZALEPLON 10 MG CAPS 1 cap po every other night ZALEPLON 44081985331 No Longer Active Vishal Hui MD Active LYRICA 50 MG CAPS 1 tab po TID PREGABALIN 57805768996 No Longer Active Vishal Hui MD Active LORATADINE 10 MG TABS 1 tab po qd LORATADINE 45794823529 No Longer Active Vishal Hui MD Active VERAPAMIL HCL ER 180 MG CR-TABS 1 tab po bid VERAPAMIL HCL 31605942122 No Longer Active Vishal Hui MD Active MIRALAX POWD 1 capfull once daily POLYETHYLENE GLYCOL 3350 87955890208 No Longer Active Vishal Hui MD Active PREDNISONE 20 MG TABS 1 tab po qd PREDNISONE 08734255386 No Longer Active Renzo Thornton DO Active LEVOFLOXACIN 500 MG TABS 1 tab po qd LEVOFLOXACIN 39463863167 No Longer Active Renzo Thornton DO Active BUSPIRONE HCL 15 MG TABS 1 tab po TID BUSPIRONE HCL 21796864259 No Longer Active Renzo Thornton DO Active BENZTROPINE MESYLATE 1 MG TABS 1 tab po qd BENZTROPINE MESYLATE 70428650597 No Longer Active Renzo Thornton DO Active ATENOLOL 25 MG TABS 1 tab po qd ATENOLOL 27616692624 No Longer Active Renzo Thornton DO Active ESCITALOPRAM OXALATE 20 MG TABS 1 tab po qd ESCITALOPRAM OXALATE 14822963502 No Longer Active Renzo Thornton DO Active ADVAIR DISKUS 250-50 MCG/DOSE AEPB 1 puff BID FLUTICASONE-SALMETEROL 36283776140 No Longer Active Renzo Thornton DO Active PREDNISONE 20 MG TAB 2 tabs daily for 3 days, 1 tab daily for 3 days, 1/2 tab daily for 2 days PREDNISONE 69276266126 No Longer Active Vishal Hui MD Active CEFDINIR 300 MG CAPS by mouth twice a day CEFDINIR 77437873036 No Longer Active Vishal Hui MD Active LANSOPRAZOLE 30 MG CPDR 1 cap po qd LANSOPRAZOLE 18704290399 No Longer Active Vishal Hui MD Active BACLOFEN 20 MG TABS 1 tab po tid BACLOFEN 11364432649 No Longer Active Vishal Hui MD Active ADVAIR DISKUS 250-50 MCG/DOSE AEPB 1 puff BID ADVAIR DISKUS 250-50 MCG/DOSE AEPB FLUTICASONE-SALMETEROL Inactive ESCITALOPRAM OXALATE 20 MG TABS 1 tab po qd ESCITALOPRAM OXALATE 20 MG TABS 650242 ESCITALOPRAM OXALATE Inactive ATENOLOL 25 MG TABS 1 tab po qd ATENOLOL 25 MG TABS 768389 ATENOLOL Inactive BENZTROPINE MESYLATE 1 MG TABS 1 tab po qd BENZTROPINE MESYLATE 1 MG TABS 811605 BENZTROPINE MESYLATE Inactive BUSPIRONE HCL 15 MG TABS 1 tab po TID BUSPIRONE HCL 15 MG TABS 661180 BUSPIRONE HCL Inactive LEVOFLOXACIN 500 MG TABS 1 tab po qd LEVOFLOXACIN 500 MG TABS 437717 LEVOFLOXACIN Inactive PREDNISONE 20 MG TABS 1 tab po qd PREDNISONE 20 MG TABS 393726 PREDNISONE Inactive MIRALAX POWD 1 capfull once daily MIRALAX [facility] 492283 POLYETHYLENE GLYCOL 3350 Inactive VERAPAMIL HCL ER 180 MG CR-TABS 1 tab po bid VERAPAMIL HCL ER 180 MG CR-TABS VERAPAMIL HCL Inactive LORATADINE 10 MG TABS 1 tab po qd LORATADINE 10 MG TABS 978353 LORATADINE Inactive LYRICA 50 MG CAPS 1 tab po TID LYRICA 50 MG CAPS PREGABALIN Inactive ZALEPLON 10 MG CAPS 1 cap po every other night ZALEPLON 10 MG CAPS 535904 ZALEPLON Inactive SAPHRIS 5 MG SUBL 1 tab po qd SAPHRIS 5 MG SUBL ASENAPINE MALEATE Inactive TRAZODONE HCL 50 MG TABS 1/2 tab po qd prn for anxiety TRAZODONE HCL 50 MG TABS 547579 TRAZODONE HCL Inactive LATUDA 20 MG TABS Take one by mouth daily LATUDA 20 MG TABS LURASIDONE HCL Inactive LISINOPRIL 20 MG TABS 1 tab po qd LISINOPRIL 20 MG TABS 327223 LISINOPRIL Inactive SAPHRIS 10 MG SUBL 1 [...] twice daily BACTRIM DS 800-160 MG TAB 180835 TRIMETHOPRIM-SULFAMETHOXAZOLE Inactive MULTIVITAMINS CAPS Take one by mouth daily MULTIVITAMINS CAPS MULTIPLE VITAMIN Inactive MELATONIN 3 MG CAPS 2 po q hs MELATONIN 3 MG CAPS 368435 MELATONIN Inactive KEFLEX 500 MG ORAL CAPS 1 cap QID by mouth KEFLEX 500 MG ORAL CAPS 256576 CEPHALEXIN Inactive CLINDAMYCIN HCL 150 MG CAPS 1 four times a day CLINDAMYCIN HCL 150 MG CAPS 050778 CLINDAMYCIN HCL Inactive DIFLUCAN 150 MG TAB 1 tablet by mouth daily DIFLUCAN 150 MG TAB 513646 FLUCONAZOLE Inactive PROZAC 20 MG CAP Take one by mouth daily PROZAC 20 MG CAP 312383 FLUOXETINE HCL Inactive IBUPROFEN 600 MG TAB 1 po TID PRN IBUPROFEN 600 MG TAB 497237 IBUPROFEN Inactive VYVANSE 40 MG CAPS 1 daily, VYVANSE 40 MG CAPS LISDEXAMFETAMINE DIMESYLATE Inactive TRAZODONE HCL 100 MG TAB take 1 at bedtime TRAZODONE HCL 100 MG TAB 591505 TRAZODONE HCL Inactive AMITRIPTYLINE HCL 100 MG TAB one at hs AMITRIPTYLINE HCL 100 MG TAB 172506 AMITRIPTYLINE HCL Inactive AMLODIPINE BESYLATE 5 MG TABS 1 tablet by mouth daily AMLODIPINE BESYLATE 5 MG TABS 865834 AMLODIPINE BESYLATE Inactive LATUDA 80 MG TABS Take one by mouth daily LATUDA 80 MG TABS LURASIDONE HCL Inactive SAPHRIS 5 MG SUBL 1 po bid SAPHRIS 5 MG SUBL ASENAPINE MALEATE Inactive PREDNISONE 20 MG TAB 2 tabs daily for 4 days, 1 tab daily for 4 days, 1/2 tab daily for 4 days PREDNISONE 20 MG TAB 645448 PREDNISONE Inactive AMBIEN 5 MG ORAL TABS 1 tab at bedtime AMBIEN 5 MG ORAL TABS 744381 ZOLPIDEM TARTRATE Inactive PROZAC 20 MG ORAL CAPS 1 tab daily PROZAC 20 MG ORAL CAPS 034622 FLUOXETINE HCL Inactive ABILIFY 15 MG ORAL TABS 1 tab daily ABILIFY 15 MG ORAL TABS 217887 ARIPIPRAZOLE Inactive METOPROLOL TARTRATE 50 MG TAB 1 po bid METOPROLOL TARTRATE 50 MG TAB 677335 METOPROLOL TARTRATE Inactive TRAMADOL HCL 50 MG TABS 1-2 po TID PRN Pain TRAMADOL HCL 50 MG TABS 783569 TRAMADOL HCL Inactive PIROXICAM 20 MG CAPS 1 cap po qd PRN Pain PIROXICAM 20 MG CAPS 339615 PIROXICAM Inactive MINIPRESS 2 MG CAPS 4 cap po at night MINIPRESS 2 MG CAPS 556568 PRAZOSIN HCL Inactive MIRALAX PACK 1 po qd PRN Constipation MIRALAX PACK 468752 POLYETHYLENE GLYCOL 3350 Inactive METOPROLOL TARTRATE 25 MG ORAL TABS 1/2 tablet twice daily for heart rate and blood pressure METOPROLOL TARTRATE 25 MG ORAL TABS 452078 METOPROLOL TARTRATE Inactive VALIUM 5 MG TAB Take 1-2 tablets daily VALIUM 5 MG TAB 168073 DIAZEPAM Inactive FLAGYL 500 MG TAB 1 tablet by mouth bid FLAGYL 500 MG TAB 790952 METRONIDAZOLE Inactive DICLOFENAC POTASSIUM TABS Take 1 tablet twice a day (pt. is not sure of the dose.) DICLOFENAC POTASSIUM TABS DICLOFENAC POTASSIUM TABS Inactive ZITHROMAX Z-EARNEST 250 MG TABS 2 today and then 1 daily for 4 days ZITHROMAX Z-EARNEST 250 MG TABS 2271445 AZITHROMYCIN Inactive PREDNISONE 20 MG TABS 2 daily for 5 days then 1 daily for 5 days PREDNISONE 20 MG TABS 986520 PREDNISONE Inactive PROAIR HFA 108 (90 BASE) MCG/ACT AERS 2 puffs four times a day as needed 2015 PROAIR HFA 108 (90 BASE) MCG/ACT AERS ALBUTEROL SULFATE Inactive HYDROCODONE-ACETAMINOPHEN 5-325 MG TABS 1 to 2 four times a day as needed for pain use until can be seen by specialist HYDROCODONE- ACETAMINOPHEN 5-325 MG TABS 086676 HYDROCODONE-ACETAMINOPHEN Inactive TESSALON PERLES 100 MG CAP 1 to 2 tablets by mouth 3 times daily as needed for cough TESSALON PERLES 100 MG CAP 702984 BENZONATATE Inactive CHANTIX STARTING MONTH EARNEST 0.5 [...] Pain 2015 DICLOFENAC SODIUM 50 MG TBEC 664243 DICLOFENAC SODIUM Inactive TOPAMAX 50 MG ORAL TABS 1 tab twice daily TOPAMAX 50 MG ORAL TABS 151251 TOPIRAMATE Inactive VIIBRYD 10 MG ORAL TABS Take 1 tablet once a day VIIBRYD 10 MG ORAL TABS VILAZODONE HCL Inactive LEVOFLOXACIN 500 MG ORAL TABS po daily LEVOFLOXACIN 500 MG ORAL TABS 971694 LEVOFLOXACIN Inactive METHYLPREDNISOLONE 4 MG ORAL TABS po daily METHYLPREDNISOLONE 4 MG ORAL TABS 654659 METHYLPREDNISOLONE Inactive OXYCODONE HCL ER 10 MG ORAL T12A 1/2 tab by mouth every 4 hours prn OXYCODONE HCL ER 10 MG ORAL T12A OXYCODONE HCL Inactive FLAGYL 500 MG TAB 1 tablet by mouth bid FLAGYL 500 MG TAB 575142 METRONIDAZOLE Inactive MONISTAT 7 COMBO PACK WOODROW 100 & 2 MG-% (9GM) VAG KIT 1 applicatorful per vagina q pm x 7 MONISTAT 7 COMBO PACK WOODROW 100 & 2 MG-% (9GM) VAG KIT MICONAZOLE NITRATE Inactive BACTRIM DS 800-160 MG TABS 1 twice a day BACTRIM DS 800-160 MG TABS 649559 SULFAMETHOXAZOLE-TRIMETHOPRIM Inactive TRAMADOL HCL 50 MG TABS 1/2-1 tab TID PRN TRAMADOL HCL 50 MG TABS 267597 TRAMADOL HCL Inactive ABILIFY MAINTENA 400 MG IM SUSR 400mg injection every 26 days ABILIFY MAINTENA 400 MG IM SUSR ARIPIPRAZOLE Inactive KLONOPIN 1 MG ORAL TABS 1 tab po TID KLONOPIN 1 MG ORAL TABS 907041 CLONAZEPAM Inactive ADVAIR DISKUS 250-50 MCG/DOSE INH AEPB 1 puff twice a day for asthma ADVAIR DISKUS 250-50 MCG/DOSE INH AEPB FLUTICASONE- SALMETEROL Inactive BENADRYL 25 MG CAP 4 po at bedtime for insomnia BENADRYL 25 MG CAP DIPHENHYDRAMINE HCL Inactive PREDNISONE 20 MG TABS 2 daily for 5 days then 1 daily for 5 days PREDNISONE 20 MG TABS 395568 PREDNISONE Inactive HYDROCODONE-ACETAMINOPHEN 5-325 MG ORAL TABS 1 tab two times a day HYDROCODONE-ACETAMINOPHEN 5-325 MG ORAL TABS 956889 HYDROCODONE-ACETAMINOPHEN Inactive ZITHROMAX Z-EARNEST 250 MG TABS 2 today and then 1 daily for 4 days ZITHROMAX Z-EARNEST 250 MG TABS 3979838 AZITHROMYCIN Inactive GUAIFENESIN-CODEINE 100-10 MG/5ML SYRP 5ml every 4 to 6 hours as needed for cough GUAIFENESIN-CODEINE 100-10 MG/5ML SYRP 852845 GUAIFENESIN-CODEINE Inactive HALOPERIDOL 10 MG ORAL TABS 1 tab q.d HALOPERIDOL 10 MG ORAL TABS 249906 HALOPERIDOL Inactive ASPIRIN 325 MG ORAL TABS 1 tab q.d ASPIRIN 325 MG ORAL TABS 775585 ASPIRIN Inactive FLUTICASONE PROPIONATE 50 MCG/ACT SUSP 2 sprays each nostril daily before bed. FLUTICASONE PROPIONATE 50 MCG/ACT SUSP 2067281 FLUTICASONE PROPIONATE Inactive ZOFRAN 4 MG TABS 1 po q6hr PRN Nausea ZOFRAN 4 MG TABS 131958 ONDANSETRON HCL Inactive KEFLEX 500 MG CAP 1 po qid KEFLEX 500 MG CAP 022332 CEPHALEXIN Inactive ACETAMINOPHEN-CODEINE 120-12 MG/5ML SOLN 5 ml by mouth every 4-6 hours if needed for cough ACETAMINOPHEN-CODEINE 120-12 MG/5ML SOLN 428603 ACETAMINOPHEN-CODEINE Inactive PREDNISONE 20 MG TAB 1 tablet daily x 4 days PREDNISONE 20 MG TAB 636826 PREDNISONE Inactive TROPICAMIDE 0.5 % OPHTH SOLN 1 drop PRN eye spasms TROPICAMIDE 0.5 % OPHTH SOLN 752167 TROPICAMIDE Inactive LEVAQUIN 500 MG TABS 1 daily for infection LEVAQUIN 500 MG TABS 690558 LEVOFLOXACIN Inactive PREDNISONE 10 MG TABS 2 daily for 5 days then 1 daily for 5 days PREDNISONE 10 MG TABS 513406 PREDNISONE Inactive EQ NICOTINE 21 MG/24HR TRANS [...] for cough TESSALON PERLES 100 MG CAPS 580520 BENZONATATE Inactive AMITIZA 8 MCG ORAL CAPS [...] twice a day MUPIROCIN 2 % OINT 841828 MUPIROCIN Inactive CEFDINIR 300 MG CAPS by mouth twice a day CEFDINIR 300 MG CAPS 859461 CEFDINIR Inactive PREDNISONE 20 MG TAB 2 tabs daily for 3 days, 1 tab daily for 3 days, 1/2 tab daily for 2 days PREDNISONE 20 MG TAB 428017 PREDNISONE Inactive BACTRIM DS 800-160 MG TABS [...] x 10 days KEFLEX 500 MG CAP 597725 CEPHALEXIN Inactive Advance Directives Directive Description Start [...] pressure, diastolic - 8462-4 63 mm[Hg] BP mcnlaly blood pressure, systolic - 8480-6 103 mm[Hg] [...] % 11.0-15.0 platelet count 443 THOUSAND/UL 10*3/mm3 193-905 0286/03/01 mean platelet volume 8.2 fL 7.5-12.5 leukocyte [...] % 11.0-15.0 platelet count 349 THOUSAND/UL 10*3/mm3 797-702 1629/04/12 mean platelet volume 8.4 fL 7.5-12.5 Lab [...] 369 10^3/MM^3 10*3/mm3 142-424 Lab Report: Chlamydia/GC APTIMA/89936 - Lab chlamydia DNA probe NOT DETECTED NOT DETECTED Lab Report: Chlamydia/GC APTIMA/43883 - Microbiology Neisseria gonorrhoeae DNA probe NOT DETECTED NOT DETECTED Lab Report: Chlamydia/GC APTIMA/17982, Urinalysis, Complete, with Reflex ... - Lab chlamydia DNA probe NOT DETECTED NOT DETECTED Lab Report: Chlamydia/GC APTIMA/24387, Urinalysis, Complete, with Reflex ... - Microbiology Neisseria gonorrhoeae DNA probe NOT DETECTED NOT DETECTED Lab Report: Chlamydia/GC APTIMA/18897, Urinalysis, Complete, with Reflex ... - Urinalysis microalbumin/total urine volume 2 mg/L Units converted. See lab report for original value. microalbumin/creatinine ratio, urine 9 MCG/MG CREAT mg/L <30 Lab Report: Comp. Metabolic Panel - Chemistry sodium, serum 140 mmol/L [phone]/08/08 carbon dioxide, venous blood 33.7 mmol/L 21.0-32.0 potassium, serum 5.0 mmol/L 3.5-5.2 chloride, serum 103 mmol/L 98-107 blood glucose 80 mg/dL 65-110 urea nitrogen, blood 13 mg/dL 7-18 creatinine, serum 0.88 mg/dL 0.55-1.30 alanine aminotransferase (SGPT), serum 54 U/L 12-78 aspartate aminotransferase (SGOT), serum 29 U/L 15-37 calcium, serum 9.7 mg/dL 8.5-10.1 bilirubin, serum, total 0.30 mg/dL 0.00-1.00 sodium, serum 140 mmol/L 262-727 5155/06/28 carbon dioxide, venous blood 23.8 mmol/L 21.0-32.0 [...] 5.0-8.5 Encounters Code Encounter Date Provider Facility CPT-85432 Level 3 Est. [facility] 15:55:[facility] 4 Est. Patient 10:49:34 CDT [facility] CPT-78368 Level 3 Est. Patient 10:00:25 [facility] Level 3 Est. Patient 10:29:30 [facility] Level 3 Est. Patient 11:04:38 CDT Renzo Thornton [facility] CPT-95204 Level 3 Est. Patient 11:15:58 MUSICAL ENGINEER Renzo Thornton [facility] CPT-66375 Level 3 Est. Patient 15:28:23 MUSICAL ENGINEER Suzan Boo [facility] CPT-42397 Level 4 Est. Patient 10:20:54 MUSICAL ENGINEER Suzan Boo [facility] CPT-77166 Level 3 Est. Patient 11:47:37 MUSICAL ENGINEER Ahmet Carbajal MD [facility] CPT-78410 Level 3 Est. Patient 10:40:11 MUSICAL ENGINEER Ahmet Carbajal MD [facility] CPT-16823 Level 3 Est. Patient 15:07:06 MUSICAL ENGINEER Neeraj Collins MD [facility] CPT-66259 Level 4 Est. Patient 14:45:00 MUSICAL ENGINEER Ahmet Carbajal MD [facility] CPT-24821 Level 3 Est. Patient 13:59:59 CDT Luigi Martínez [facility] CPT-05419 Level 3 Est. Patient 18:18:53 CDT Neeraj Collins MD [facility] CPT-53886 Level 3 Est. Patient 15:50:44 CDT Vishal Hui MD [facility] CPT-70346 Level 3 Est. Patient 11:36:17 CDT Ahmet Carbajal MD [facility] CPT-07126 Level 3 Est. Patient 13:29:16 CDT Vishal Hui MD [facility] CPT-01107 Level 3 Est. Patient 14:27:52 CDT Neeraj Collins MD [facility] CPT-46511 Level 3 Est. Patient 08:56:03 CDT Luigi Martínez [facility] CPT-62830 Level 4 Est. Patient 12:11:48 CDT Fabiola Johnson [facility] CPT-72686 Level 3 New Patient 16:53:37 CDT Albert Caldera MD [facility] CPT-35863 Level 3 Est. Patient 11:25:49 CDT Renzo Thornton DO [facility] CPT-00059 Level 3 Est. Patient 15:22:01 CDT Ahmet Carbajal MD [facility] CPT-04360 Level 4 Est. Patient 09:00:51 MUSICAL ENGINEER Vishal Hui MD [facility] CPT-59653 Level 3 Est. Patient 11:37:33 MUSICAL ENGINEER Vishal Hui MD [facility] CPT-70576 Level 3 Est. Patient 08:41:09 MUSICAL ENGINEER Vishal Hui MD [facility] CPT-63220 Level 4 Est. Patient 10:19:35 MUSICAL ENGINEER Vishal Hui MD [facility] CPT-63066 Level 3 Est. Patient 13:35:45 CDT Vishal Hui MD [facility] CPT-74996 Level 4 Est. Patient 10:08:37 CDT Vihsal Hui MD [facility] CPT-17451 Level 3 Est. Patient 11:22:10 CDT Vishal Hui MD [facility] CPT-44403 Level 3 Est. Patient 11:03:32 CDT Sahara Rodriguez MD [facility] CPT-31515 Level 3 Est. Patient 09:41:35 CDT Vishal Hui MD [facility]-29404 Level 3 Est. Patient 12:00:41 CDT Neeraj Collins MD [facility] CPT-95636 Level 3 Est. Patient 09:16:24 CDT Vishal Hui MD [facility] CPT-48050 Level 4 Est. Patient 13:59:09 CDT Neeraj Collins MD [facility]-68058 Level 3 Est. Patient 15:19:43 CDT Renzo Thornton DO [facility] CPT-73576 Level 3 Est. Patient 18:10:26 CDT Sahara Rodriguez MD [facility]-46843 Level 3 Est. Patient 14:49:50 CDT Vishal Hui MD [facility] CPT-90261 Level 4 Est. Patient 18:41:46 CDT Neeraj Collins MD [facility]-98991 Level 4 Est. Patient 09:18:38 MUSICAL ENGINEER Vishal Hui MD [facility] CPT-00079 Level 3 Est. Patient 14:43:55 MUSICAL ENGINEER Vishal Hui MD [facility] CPT-04298 Level 3 Est. Patient 15:26:33 MUSICAL ENGINEER Sahara Rodriguez MD [facility] CPT-87493 Level 3 Est. Patient 10:32:14 MUSICAL ENGINEER Vishal Hui MD [facility]-93835 Level 3 Est. Patient 15:12:52 MUSICAL ENGINEER Vishal Hui MD [facility] CPT-36954 Level 4 Est. Patient 09:19:27 CDT Vishal Hui MD [facility] CPT-32910 Level 3 Est. Patient 15:53:00 CDT Renzo Thornton [facility] CPT-81844 Level 3 Est. Patient 15:50:30 CDT Renzo Thornton [facility] CPT-35752 Level 3 Est. Patient 16:55:24 CDT Vishal Hui MD [facility] Procedures Code Procedure Name Date Entry Date Standard Description CPT-62639 EKG Trac and Interp - XRAY USE ONLY 15:59:30 CDT 09/13 CPT-81542 Chest 1V Frontal - XRAY USE ONLY 15:59:30 CDT CPT-68434 Venipuncture Draw Fee 15:44:02 CDT CPT-53120 Venipuncture Draw Fee 08:41:12 CDT CPT-67780 Abd compl w upright - XRAY USE ONLY 10:27:59 CDT 06/28 CPT-17585 Smoking Cessation counseling 11:15:58 MUSICAL ENGINEER CPT-G0439 [facility] Annual Wellness Exam 09:30:58 MUSICAL ENGINEER CPT-08937 TSH - LAB USE ONLY 08:50:26 MUSICAL ENGINEER CPT-71634 CBC - LAB USE ONLY 08:50:26 MUSICAL ENGINEER CPT-80915 Venipuncture Draw Fee 08:50:26 MUSICAL ENGINEER CPT-67308 Abx/Therapy Injection 17:34:30 MUSICAL ENGINEER CPT-86819 Nexplanon Removal with Reinsertion 14:09:32 CDT CPT-J7307 Nexplanon (Implant) 14:09:32 CDT CPT-OV Office Visit 14:09:32 CDT CPT-19578 UA w micro - LAB USE ONLY 16:21:13 CDT CPT-83056 Wet Mount - LAB USE ONLY 16:21:13 CDT CPT-72091 First Vx - Ix admin for Medicare patients 14:37:47 CDT CPT-37735 Fluzone Preservative Free Intramuscular Suspension 14:37 :47 CDT CPT-56390 Abx/Therapy Injection 13:54:22 CDT CPT-27238 Abx/Therapy Injection 08:47:09 CDT CPT-85147 Abx/Therapy Injection 13:29:56 CDT CPT-53465 Abx/Therapy Injection 08:36:16 CDT CPT-97704 [place] - LAB USE ONLY 17:44:58 CDT CPT-51801 UA w micro - LAB USE ONLY 17:44:58 CDT CPT-14603 CMP - LAB USE ONLY 17:44:58 CDT CPT-93181 Venipuncture Draw Fee 17:44:58 CDT CPT-56152 Cervical Min 4V - XRAY USE ONLY 09:01:40 CDT CPT-10680 Chest 2V Frontal and Lat - XRAY USE ONLY 11:06:31 CDT CPT-34822 EKG Trac and Interp - XRAY USE ONLY 11:31:43 CDT 08/26 CPT-J3420 Vitamin B12 1000mcg (Cyanocobalamin) 08:10:26 MUSICAL ENGINEER 04/12 CPT-88818 Abx/Therapy Injection 08:10:26 MUSICAL ENGINEER CPT-G0438 Initial Annual Wellness Exam 19:01:01 MUSICAL ENGINEER CPT-J3420 Vitamin B12 1000mcg (Cyanocobalamin) 16:57:46 CDT 08/14 CPT-48886 Recombivax HB Injection Suspension 5 MCG/0.5ML 08:37:50 MUSICAL ENGINEER CPT-57116 Immunization Single Admin 08:37:50 MUSICAL ENGINEER CPT-J3420 Vitamin B12 1000mcg (Cyanocobalamin) 08:32:16 MUSICAL ENGINEER 03/11 CPT-09921 Abx/Therapy Injection 08:32:16 MUSICAL ENGINEER CPT-97217 Chest 2V Frontal and Lat 11:46:38 MUSICAL ENGINEER CPT-55972 Venipuncture Draw Fee 09:12:45 MUSICAL ENGINEER CPT-J3420 Vitamin B12 1000mcg (Cyanocobalamin) 08:50:15 MUSICAL ENGINEER 02/08 CPT-34792 Abx/Therapy Injection 08:50:15 MUSICAL ENGINEER CPT-Cryo Cryotherapy 10:19:35 MUSICAL ENGINEER CPT-000 Give Appropriate Flu Vaccine 09:22:16 CDT CPT-J3420 Vitamin B12 1000mcg (Cyanocobalamin) 19:08:57 CDT 01/11 CPT-80784 Abx/Therapy Injection 19:08:57 CDT CPT-J3420 Vitamin B12 1000mcg (Cyanocobalamin) 08:19:08 CDT 12/11 CPT-26394 Abx/Therapy Injection 08:19:08 CDT CPT-J3420 Vitamin B12 1000mcg (Cyanocobalamin) 14:48:00 CDT 11/09 CPT-69674 Abx/Therapy Injection 14:47:59 CDT CPT-J3420 Vitamin B12 1000mcg (Cyanocobalamin) 08:34:04 CDT 10/09 CPT-84549 Abx/Therapy Injection 08:34:04 CDT CPT-J3420 Vitamin B12 1000mcg (Cyanocobalamin) 09:18:52 CDT 09/11 CPT-76113 Abx/Therapy Injection 09:18:52 CDT CPT-J3420 Vitamin B12 1000mcg (Cyanocobalamin) 08:35:44 CDT 09/04 CPT-95155 Abx/Therapy Injection 08:35:44 CDT CPT-13408 Immunization Single Admin 11:07:16 CDT CPT-11822 Hepatitis B adult IM 11:07:16 CDT CPT-J3420 Vitamin B12 1000mcg (Cyanocobalamin) 11:00:49 CDT 08/28 CPT-J1040 Depo Medrol 80 mg (Methyl Prednisolone Acetate) 11:00: 49 CDT CPT-32054 Abx/Therapy Injection 11:00:49 CDT CPT-J1040 Depo Medrol 80 mg (Methyl Prednisolone Acetate) 09:16: 23 CDT CPT-J3420 Vitamin B12 1000mcg (Cyanocobalamin) 08:27:05 CDT 08/20 CPT-89159 Abx/Therapy Injection 08:27:05 CDT CPT-42290 Recombivax HB Injection Suspension 5 MCG/0.5ML 10:00:41 CDT CPT-60780 Administration single or combination vaccine inc oral 10 :00:41 CDT CPT-46148 Sono transvag pelvis non OB uterus ovaries cervix 16:36: 57 CDT CPT-62862 LS spine comp w obliq 09:50:55 MUSICAL ENGINEER CPT-90745 Abd compl w upright 09:50:55 MUSICAL ENGINEER CPT-J1100 Decadron 4mg (Dexamethasone) 15:51:24 MUSICAL ENGINEER CPT-J1030 Depo Medrol 40 mg (Methyl Prednisolone Acetate) 15:51: 24 MUSICAL ENGINEER CPT-49979 Abx/Therapy Injection 15:51:24 MUSICAL ENGINEER CPT-J1100 Decadron 4mg (Dexamethasone) 15:26:33 MUSICAL ENGINEER CPT-J1030 Depo Medrol 40 mg (Methyl Prednisolone Acetate) 15:26: 33 MUSICAL ENGINEER CPT-18484 Sono retroperitoneal complete kidneys and bladder 17:15: 30 CDT CPT-88341 Abd compl w upright 16:09:25 CDT CPT-J1100 Decadron 8mg (Dexamethasone) 17:07:57 CDT CPT-38638 Abx/Therapy Injection 17:07:57 CDT CPT-J1100 Decadron 8mg (Dexamethasone) 16:55:24 CDT CPT-63596 Chest 2V Frontal and Lat 16:32:44 CDT
--- OUTSIDE RECORDS SUMMARY | 2016-11-04 19:08 | XMS REPORT | Clinical Summary ---
Author Author Admin, E Organization [employer] Address Unknown Phone Unavailable Allergies, Adverse Reactions, [...] not specified as infective DYSURIA 788.1 Resolved Suzna Boo APRN Dysuria Contraceptive management V25.09 Active [...] Active Ahmet Carbajal MD Generalized anxiety disorder Buncher Machine well woman exam V72.31 Active Suzan Boo [...] Cervicalgia Preop exam V72.84 Active Suzan Rajeev [employer] Preoperative examination, unspecified Anxiety Disorder ICD-300.00 Inactive Vishal Hui MD Pneumonia, organism unspecified ICD-486 Inactive Vishal Hui MD Flank pain, right ICD-789.09 Inactive Vishal Hui MD G E R D ICD-530.81 Inactive Vishal Hui MD Health screening ICD-V70.0 Inactive Suzan Boo [employer] Sinus tachycardia ICD-427.89 Inactive Suzan Boo [employer] 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 Smoker/tobacco use disorder-smoking cessation discussed ICD-305.1 Inactive [...] MD Calf pain, left ICD-729.5 Inactive Vishal Hiu MD Asthma, acute ICD-493.92 Inactive Vishal Hui [...] twice a day for 5 days TRIMETHOPRIM-SULFAMETHOXAZOLE 93769909765 Active Samantha MCDONALD Active MUPIROCIN 2 % OINT apply twice a day MUPIROCIN 30740221900 No Longer Active Suzan Boo APRN Active BACTRIM DS 800-160 MG TABS 1 twice a day SULFAMETHOXAZOLE-TRIMETHOPRIM 97991335250 No Longer Active Suzan Boo APRN Active DIFLUCAN 150 MG TABS 1 by mouth for yeast FLUCONAZOLE 12312092346 No Longer Active Suzan Boo APRN Active AMITIZA 8 MCG ORAL CAPS 1 capsule twice daily LUBIPROSTONE 35460694940 Active Sheila Calderon LPN Active LINZESS 290 MCG ORAL CAPS 1 tab 30 min prior to first meal each day. LINACLOTIDE 58292279375 No Longer Active Sheila Calderon LPN Active AMITIZA 8 MCG ORAL CAPS 1 tab BID LUBIPROSTONE 53620086944 No Longer Active Lynda Xiao LPN Active LACTULOSE 10 GM/15ML ORAL SOLN 30mL oral BID for IBS-C LACTULOSE 11972495792 Active Suzan Boo APRN Active TESSALON PERLES 100 MG CAPS 1 three times a day as needed for cough BENZONATATE 07844466252 No Longer Active Suzan Boo APRN Active BACTRIM DS 800-160 MG TABS 1 twice a day SULFAMETHOXAZOLE-TRIMETHOPRIM 58662651965 No Longer Active Suzan Boo APRN Active DIFLUCAN 150 MG TABS 1 by mouth for yeast FLUCONAZOLE 17771919082 No Longer Active Suzan Boo APRN Active EQ NICOTINE 21 MG/24HR TRANS PT24 Apply daily to stop smoking NICOTINE 18676489381 No Longer Active Suzan Boo APRN Active PREDNISONE 10 MG TABS 2 daily for 5 days then 1 daily for 5 days PREDNISONE 88955955836 No Longer Active Suzan Boo APRN Active LEVAQUIN 500 MG TABS 1 daily for infection LEVOFLOXACIN 55819425382 No Longer Active Suzan Boo APRN Active TROPICAMIDE 0.5 % OPHTH SOLN 1 drop PRN eye spasms TROPICAMIDE 06027357957 No Longer Active Suzan Boo APRN Active PREDNISONE 20 MG TAB 1 tablet daily x 4 days PREDNISONE 64727815651 No Longer Active Suzan Boo APRN Active ACETAMINOPHEN-CODEINE 120-12 MG/5ML SOLN 5 ml by mouth every 4-6 hours if needed for cough ACETAMINOPHEN-CODEINE 52490593868 No Longer Active Suzan Boo APRN Active KEFLEX 500 MG CAP 1 po qid CEPHALEXIN 32614750464 No Longer Active Suzan Boo APRN Active FLOVENT HFA 110 MCG/ACT AERO 2 puffs inhaled b.i.d. FLUTICASONE PROPIONATE HFA 11548235331 Active Renzo Thornton DO Active RISPERDAL 4 MG ORAL TABS 1 tab at bedtime RISPERIDONE 38771507896 Active Samantha MCDONALD Active ZOFRAN 4 MG TABS 1 po q6hr PRN Nausea ONDANSETRON HCL No Longer Active Suzan Boo APRN Active FLUTICASONE PROPIONATE 50 MCG/ACT SUSP 2 sprays each nostril daily before bed. FLUTICASONE PROPIONATE 37204866863 No Longer Active Suzan Boo APRN Active ASPIRIN 325 MG ORAL TABS 1 tab q.d ASPIRIN 20129312263 No Longer Active Suzan Boo APRN Active HALOPERIDOL 10 MG ORAL TABS 1 tab q.d HALOPERIDOL 91112634265 No Longer Active Suzan Boo APRN Active GUAIFENESIN-CODEINE 100-10 MG/5ML SYRP 5ml every 4 to 6 hours as needed for cough GUAIFENESIN-CODEINE 29995693550 No Longer Active Suzan Boo APRN Active ZITHROMAX Z-EARNEST 250 MG TABS 2 today and then 1 daily for 4 days AZITHROMYCIN 46083262707 No Longer Active Suzan Boo APRN Active CLONAZEPAM 1 MG ORAL TABS 1 twice a day and an additional 1 tablet every other day as needed for pseudoseizures or anxiety CLONAZEPAM 20511516643 Active Suzan Boo APRN Active HYDROCODONE-ACETAMINOPHEN 5-325 MG ORAL TABS 1 tab two times a day HYDROCODONE-ACETAMINOPHEN 42627467785 No Longer Active Ahmet Carbajal MD Active LAMICTAL 100 MG ORAL TABS 1 tab 2 times qd. LAMOTRIGINE 49072779021 Active Ahmet Carbajal MD Active PREDNISONE 20 MG TABS 2 daily for 5 days then 1 daily for 5 days PREDNISONE 15977945349 No Longer Active Ahmet Carbajal MD Active FLUTICASONE PROPIONATE 50 MCG/ACT SUSP 1 to 2 sprays each nostril daily for allergies FLUTICASONE PROPIONATE 74421586037 Active Tila Valenzuela Active BENADRYL 25 MG CAP 4 po at bedtime for insomnia DIPHENHYDRAMINE HCL 29751809941 No Longer Active Ahmet Carbajal MD Active ADVAIR DISKUS 250-50 MCG/DOSE INH AEPB 1 puff twice a day for asthma FLUTICASONE-SALMETEROL 13999074534 No Longer Active Ahmet Carbajal MD Active KLONOPIN 1 MG ORAL TABS 1 tab po TID CLONAZEPAM 55835334411 No Longer Active Ahmet Carbajal MD Active ABILIFY MAINTENA 400 MG IM SUSR 400mg injection every 26 days ARIPIPRAZOLE 97051206856 No Longer Active Ahmet Carbajal MD Active TRAMADOL HCL 50 MG TABS 1/2-1 tab TID PRN TRAMADOL HCL 04207643975 No Longer Active Ahmet Carbajal MD Active BACTRIM DS 800-160 MG TABS 1 twice a day SULFAMETHOXAZOLE- TRIMETHOPRIM 66642293999 No Longer Active Ahmet Carbajal MD Active PROAIR HFA 108 (90 BASE) MCG/ACT AERS 2 puffs four times a day as needed 2015 ALBUTEROL SULFATE 64974908388 Active Honey Hinton [employer]PER[employer]OR Active MONISTAT 7 COMBO PACK WOODROW 100 & 2 MG-% (9GM) VAG KIT 1 applicatorful per vagina q pm x 7 MICONAZOLE NITRATE 76498851937 No Longer Active Ahmet Carbajal MD Active FLAGYL 500 MG TAB 1 tablet by mouth bid METRONIDAZOLE 02724151174 No Longer Active Ahmet Carbajal MD Active OXYCODONE HCL ER 10 MG ORAL T12A 1/2 tab by mouth every 4 hours prn OXYCODONE HCL 49113328113 No Longer Active Ahmet Carbajal MD Active METHYLPREDNISOLONE 4 MG ORAL TABS po daily METHYLPREDNISOLONE 76820634976 No Longer Active Ahmet Carbajal MD Active LEVOFLOXACIN 500 MG ORAL TABS po daily LEVOFLOXACIN 09380817458 No Longer Active Ahmet Carbajal MD Active VIIBRYD 10 MG ORAL TABS Take 1 tablet once a day VILAZODONE HCL 01448965175 No Longer Active Ahmet Carbajal MD Active TOPAMAX 50 MG ORAL TABS 1 tab twice daily TOPIRAMATE 38693896716 No Longer Active Ahmet Carbajal MD Active DICLOFENAC SODIUM 50 MG TBEC 1 tablet by mouth four times daily PRN Pain 2015 DICLOFENAC SODIUM 75436859876 No Longer Active Ahmet Carbajal MD Active ADZENYS XR-ODT 6.3 MG ORAL TBED 1 tab po daily for ADHD AMPHETAMINE 72392144628 No Longer Active Ahmet Carbajal MD Active CHANTIX 1 MG TABS 1 twice a day to help quit smoking VARENICLINE TARTRATE 61833264847 No Longer Active Dipika Burgos MD Active CHANTIX STARTING MONTH EARNEST 0.5 MG X 11 & 1 MG X 42 TABS take as directed 2015 VARENICLINE TARTRATE 63664807285 No Longer Active Dipika Burgos MD Active TESSALON PERLES 100 MG CAP 1 to 2 tablets by mouth 3 times daily as needed for cough BENZONATATE 01855412380 No Longer Active Luigi Martínez APRN Active IMITREX 50 MG ORAL TABS 0.5 po x 1 PRN Headache. May repeat dose x 1 in 2 hours if needed SUMATRIPTAN SUCCINATE 52807300876 Active Ahmet Carbajal MD Active HYDROCODONE-ACETAMINOPHEN 5-325 MG TABS 1 to 2 four times a day as needed for pain use until can be seen by specialist HYDROCODONE- ACETAMINOPHEN 03948874365 No Longer Active Vishal Hui MD Active PROAIR HFA 108 (90 BASE) MCG/ACT AERS 2 puffs four times a day as needed 2015 ALBUTEROL SULFATE 54941581554 No Longer Active Vishal Hui MD Active PREDNISONE 20 MG TABS 2 daily for 5 days then 1 daily for 5 days PREDNISONE 75588755179 No Longer Active Vishal Hui MD Active ZITHROMAX Z-EARNEST 250 MG TABS 2 today and then 1 daily for 4 days AZITHROMYCIN 28329926290 No Longer Active Vishal Hui MD Active DICLOFENAC POTASSIUM TABS Take 1 tablet twice a day (pt. is not sure of the dose.) DICLOFENAC POTASSIUM TABS 30070549936 No Longer Active Vishal Hui MD Active VERAPAMIL HCL ER 120 MG ORAL CR-TABS Take 1 tablet by mouth twice a day. VERAPAMIL HCL 08856953618 Active Vishal Hui MD Active FLAGYL 500 MG TAB 1 tablet by mouth bid METRONIDAZOLE 61238164276 No Longer Active Vishal Hui MD Active VALIUM 5 MG TAB Take 1-2 tablets daily DIAZEPAM 43094323700 No Longer Active Fabiola Johnson APRN Active METOPROLOL TARTRATE 25 MG ORAL TABS 1/2 tablet twice daily for heart rate and blood pressure METOPROLOL TARTRATE 15601036688 No Longer Active Fabiola Johnson APRN Active MIRALAX ORAL POWD 17GMS DAILY IN WATER POLYETHYLENE GLYCOL 3350 59247360489 Active TAMARA Casey Active MIRALAX PACK 1 po qd PRN Constipation POLYETHYLENE GLYCOL 3350 85146507175 No Longer Active Ahmet Carbajal MD Active MINIPRESS 2 MG CAPS 4 cap po at night PRAZOSIN HCL 60448419995 No Longer Active Ahmet Carbajal MD Active PIROXICAM 20 MG CAPS 1 cap po qd PRN Pain PIROXICAM 26196183840 No Longer Active Ahmet Carbajal MD Active TRAMADOL HCL 50 MG TABS 1-2 po TID PRN Pain TRAMADOL HCL 26637077235 No Longer Active Ahmet Carbajal MD Active METOPROLOL TARTRATE 50 MG TAB 1 po bid METOPROLOL TARTRATE 76128331969 No Longer Active Ahmet Carbajal MD Active ABILIFY 15 MG ORAL TABS 1 tab daily ARIPIPRAZOLE 44109340148 No Longer Active Ahmet Carbajal MD Active PROZAC 20 MG ORAL CAPS 1 tab daily FLUOXETINE HCL 19586579567 No Longer Active Ahmet Carbajal MD Active AMBIEN 5 MG ORAL TABS 1 tab at bedtime ZOLPIDEM TARTRATE 92462488313 No Longer Active Ahmet Carbajal MD Active PREDNISONE 20 MG TAB 2 tabs daily for 4 days, 1 tab daily for 4 days, 1/2 tab daily for 4 days PREDNISONE 73488376502 No Longer Active Ahmet Carbajal MD Active KEFLEX 500 MG CAP 1 po TID x 10 days CEPHALEXIN 45129524412 No Longer Active Vishal Hui MD Active SAPHRIS 5 MG SUBL 1 po bid ASENAPINE MALEATE 10303202771 No Longer Active Luigi Martínez APRN Active LATUDA 80 MG TABS Take one by mouth daily LURASIDONE HCL 48837158659 No Longer Active Luigi Martínez APRN Active AMLODIPINE BESYLATE 5 MG TABS 1 tablet by mouth daily AMLODIPINE BESYLATE 54917430620 No Longer Active Luigi Martínez APRN Active AMITRIPTYLINE HCL 100 MG TAB one at hs AMITRIPTYLINE HCL 41946185462 No Longer Active Vishal Hui MD Active TRAZODONE HCL 100 MG TAB take 1 at bedtime TRAZODONE HCL 23679718105 No Longer Active Vishal Hui MD Active VYVANSE 40 MG CAPS 1 daily, LISDEXAMFETAMINE DIMESYLATE 53162264364 No Longer Active Vishal Hui MD Active IBUPROFEN 600 MG TAB 1 po TID PRN IBUPROFEN 40862816562 No Longer Active Vishal Hui MD Active PROZAC 20 MG CAP Take one by mouth daily FLUOXETINE HCL 33243967418 No Longer Active Vishal Hui MD Active BACTRIM DS 800-160 MG TABS 1 pill by mouth twice daily SULFAMETHOXAZOLE-TRIMETHOPRIM 36667168532 No Longer Active Sahara Rodriguez MD PhD Active DIFLUCAN 150 MG TAB 1 tablet by mouth daily FLUCONAZOLE 92626130977 No Longer Active Vishal Hui MD Active TIZANIDINE HCL 4 MG TABS 1 po q6hr PRN Muscle Spasm/Back Pain TIZANIDINE HCL 16595649516 Active TAMARA Casey Active CLINDAMYCIN HCL 150 MG CAPS 1 four times a day CLINDAMYCIN HCL 83437267415 No Longer Active Neeraj Collins MD Active KEFLEX 500 MG ORAL CAPS 1 cap QID by mouth CEPHALEXIN 24854761659 No Longer Active Neeraj Collins MD Active DIFLUCAN 150 MG TABS 1 pill every other day x 2 doses FLUCONAZOLE 50942813874 No Longer Active Sahara Rodriguez MD PhD Active MELATONIN 3 MG CAPS 2 po q hs MELATONIN 82708854661 No Longer Active Sahara Rodriguez MD PhD Active MULTIVITAMINS CAPS Take one by mouth daily MULTIPLE VITAMIN 96430366457 No Longer Active Sahara Rodriguez MD PhD Active BACTRIM DS 800-160 MG TAB 1 tab by mouth twice daily TRIMETHOPRIM-SULFAMETHOXAZOLE 85635706794 No Longer Active Sahara Rodriguez MD PhD Active [facility] PROBIOTIC ORAL CHEW 2 daily po PROBIOTIC PRODUCT 32211325134 No Longer Active Sahara Rodriguez MD PhD Active BACTRIM DS 800-160 MG TABS 1 po BID x 7 days SULFAMETHOXAZOLE-TRIMETHOPRIM 28996988704 No Longer Active Vishal Hui MD Active CHANTIX STARTING MONTH EARNEST 0.5 MG X 11 & 1 MG X 42 TABS 0.5mg daily for 3 days , then 0.5mg BID for 4 days, then 1mg BID VARENICLINE TARTRATE 64066830920 No Longer Active TAMARA Gray Active VERAPAMIL HCL CR 120 MG TAB CR 1 po bid VERAPAMIL HCL 79100344267 No Longer Active Vishal Hui MD Active METOPROLOL SUCCINATE 50 MG TB24 1 tablet by mouth daily METOPROLOL SUCCINATE 15591905450 No Longer Active Vishal Hui MD Active SAPHRIS 10 MG SUBL 1 tab po bid ASENAPINE MALEATE 08717524288 No Longer Active Vishal Hui MD Active LISINOPRIL 20 MG TABS 1 tab po qd LISINOPRIL 83880604742 No Longer Active Vishal Hui MD Active LATUDA 20 MG TABS Take one by mouth daily LURASIDONE HCL 86141774367 No Longer Active Vishal Hui MD Active TRAZODONE HCL 50 MG TABS 1/2 tab po qd prn for anxiety TRAZODONE HCL 22329147732 No Longer Active Vishal Hui MD Active OMEPRAZOLE 20 MG TBEC 1 po q a.m. 30min prior to first food intake OMEPRAZOLE 83221157528 Active TAMAAR Casey Active RANITIDINE HCL 150 MG CAPS 1 twice a day RANITIDINE HCL 60241706377 Active Lydna Xiao REFRIGERATING OILER Active LINZESS 290 MCG CAPS Take one by mouth daily LINACLOTIDE 31150313860 No Longer Active Vishal Hui MD Active SAPHRIS 5 MG SUBL 1 tab po qd ASENAPINE MALEATE 06788157573 No Longer Active Vishal Hui MD Active ZALEPLON 10 MG CAPS 1 cap po every other night ZALEPLON 47225607570 No Longer Active Vishal Hui MD Active LYRICA 50 MG CAPS 1 tab po TID PREGABALIN 03538514610 No Longer Active Vishal Hui MD Active LORATADINE 10 MG TABS 1 tab po qd LORATADINE 43530006073 No Longer Active Vishal Hui MD Active VERAPAMIL HCL ER 180 MG CR-TABS 1 tab po bid VERAPAMIL HCL 47287575965 No Longer Active Vishal Hui MD Active MIRALAX POWD 1 capfull once daily POLYETHYLENE GLYCOL 3350 18949755752 No Longer Active Vishal Hui MD Active PREDNISONE 20 MG TABS 1 tab po qd PREDNISONE 89238502775 No Longer Active Renzo Thornton DO Active LEVOFLOXACIN 500 MG TABS 1 tab po qd LEVOFLOXACIN 58900340327 No Longer Active Renzo Thornton DO Active BUSPIRONE HCL 15 MG TABS 1 tab po TID BUSPIRONE HCL 80671545248 No Longer Active Renzo Thornton DO Active BENZTROPINE MESYLATE 1 MG TABS 1 tab po qd BENZTROPINE MESYLATE 68562220539 No Longer Active Renzo Thornton DO Active ATENOLOL 25 MG TABS 1 tab po qd ATENOLOL 88188558522 No Longer Active Renzo Thornton DO Active ESCITALOPRAM OXALATE 20 MG TABS 1 tab po qd ESCITALOPRAM OXALATE 28149314431 No Longer Active Renzo Thornton DO Active ADVAIR DISKUS 250-50 MCG/DOSE AEPB 1 puff BID FLUTICASONE-SALMETEROL 03329155222 No Longer Active Renzo Thornton DO Active PREDNISONE 20 MG TAB 2 tabs daily for 3 days, 1 tab daily for 3 days, 1/2 tab daily for 2 days PREDNISONE 10952680845 No Longer Active Vishal Hui MD Active CEFDINIR 300 MG CAPS by mouth twice a day CEFDINIR 20714348716 No Longer Active Vishal Hui MD Active LANSOPRAZOLE 30 MG CPDR 1 cap po qd LANSOPRAZOLE 23042661705 No Longer Active Vishal Hui MD Active BACLOFEN 20 MG TABS 1 tab po tid BACLOFEN 60158266239 No Longer Active Vishal Hui MD Active ADVAIR DISKUS 250-50 MCG/DOSE AEPB 1 puff BID ADVAIR DISKUS 250-50 MCG/DOSE AEPB FLUTICASONE-SALMETEROL Inactive ESCITALOPRAM OXALATE 20 MG TABS 1 tab po qd ESCITALOPRAM OXALATE 20 MG TABS 743725 ESCITALOPRAM OXALATE Inactive ATENOLOL 25 MG TABS 1 tab po qd ATENOLOL 25 MG TABS 342226 ATENOLOL Inactive BENZTROPINE MESYLATE 1 MG TABS 1 tab po qd BENZTROPINE MESYLATE 1 MG TABS 610993 BENZTROPINE MESYLATE Inactive BUSPIRONE HCL 15 MG TABS 1 tab po TID BUSPIRONE HCL 15 MG TABS 725716 BUSPIRONE HCL Inactive LEVOFLOXACIN 500 MG TABS 1 tab po qd LEVOFLOXACIN 500 MG TABS 852061 LEVOFLOXACIN Inactive PREDNISONE 20 MG TABS 1 tab po qd PREDNISONE 20 MG TABS 504179 PREDNISONE Inactive MIRALAX POWD 1 capfull once daily MIRALAX POWD 012017 POLYETHYLENE GLYCOL 3350 Inactive VERAPAMIL HCL ER 180 MG CR-TABS 1 tab po bid VERAPAMIL HCL ER 180 MG CR-TABS VERAPAMIL HCL Inactive LORATADINE 10 MG TABS 1 tab po qd LORATADINE 10 MG TABS 584809 LORATADINE Inactive LYRICA 50 MG CAPS 1 tab po TID LYRICA 50 MG CAPS PREGABALIN Inactive ZALEPLON 10 MG CAPS 1 cap po every other night ZALEPLON 10 MG CAPS 906973 ZALEPLON Inactive SAPHRIS 5 MG SUBL 1 tab po qd SAPHRIS 5 MG SUBL ASENAPINE MALEATE Inactive TRAZODONE HCL 50 MG TABS 1/2 tab po qd prn for anxiety TRAZODONE HCL 50 MG TABS 555000 TRAZODONE HCL Inactive LATUDA 20 MG TABS Take one by mouth daily LATUDA 20 MG TABS LURASIDONE HCL Inactive LISINOPRIL 20 MG TABS 1 tab po qd LISINOPRIL 20 MG TABS 997270 LISINOPRIL Inactive SAPHRIS 10 MG SUBL 1 [...] twice daily BACTRIM DS 800-160 MG TAB 583839 TRIMETHOPRIM-SULFAMETHOXAZOLE Inactive MULTIVITAMINS CAPS Take one by mouth daily MULTIVITAMINS CAPS MULTIPLE VITAMIN Inactive MELATONIN 3 MG CAPS 2 po q hs MELATONIN 3 MG CAPS 861438 MELATONIN Inactive KEFLEX 500 MG ORAL CAPS 1 cap QID by mouth KEFLEX 500 MG ORAL CAPS 699801 CEPHALEXIN Inactive CLINDAMYCIN HCL 150 MG CAPS 1 four times a day CLINDAMYCIN HCL 150 MG CAPS 999847 CLINDAMYCIN HCL Inactive DIFLUCAN 150 MG TAB 1 tablet by mouth daily DIFLUCAN 150 MG TAB 815374 FLUCONAZOLE Inactive PROZAC 20 MG CAP Take one by mouth daily PROZAC 20 MG CAP 982712 FLUOXETINE HCL Inactive IBUPROFEN 600 MG TAB 1 po TID PRN IBUPROFEN 600 MG TAB 706590 IBUPROFEN Inactive VYVANSE 40 MG CAPS 1 daily, VYVANSE 40 MG CAPS LISDEXAMFETAMINE DIMESYLATE Inactive TRAZODONE HCL 100 MG TAB take 1 at bedtime TRAZODONE HCL 100 MG TAB 654914 TRAZODONE HCL Inactive AMITRIPTYLINE HCL 100 MG TAB one at hs AMITRIPTYLINE HCL 100 MG TAB 402211 AMITRIPTYLINE HCL Inactive AMLODIPINE BESYLATE 5 MG TABS 1 tablet by mouth daily AMLODIPINE BESYLATE 5 MG TABS 708573 AMLODIPINE BESYLATE Inactive LATUDA 80 MG TABS Take one by mouth daily LATUDA 80 MG TABS LURASIDONE HCL Inactive SAPHRIS 5 MG SUBL 1 po bid SAPHRIS 5 MG SUBL ASENAPINE MALEATE Inactive PREDNISONE 20 MG TAB 2 tabs daily for 4 days, 1 tab daily for 4 days, 1/2 tab daily for 4 days PREDNISONE 20 MG TAB 883325 PREDNISONE Inactive AMBIEN 5 MG ORAL TABS 1 tab at bedtime AMBIEN 5 MG ORAL TABS 518867 ZOLPIDEM TARTRATE Inactive PROZAC 20 MG ORAL CAPS 1 tab daily PROZAC 20 MG ORAL CAPS 307284 FLUOXETINE HCL Inactive ABILIFY 15 MG ORAL TABS 1 tab daily ABILIFY 15 MG ORAL TABS 984873 ARIPIPRAZOLE Inactive METOPROLOL TARTRATE 50 MG TAB 1 po bid METOPROLOL TARTRATE 50 MG TAB 956201 METOPROLOL TARTRATE Inactive TRAMADOL HCL 50 MG TABS 1-2 po TID PRN Pain TRAMADOL HCL 50 MG TABS 510627 TRAMADOL HCL Inactive PIROXICAM 20 MG CAPS 1 cap po qd PRN Pain PIROXICAM 20 MG CAPS 556469 PIROXICAM Inactive MINIPRESS 2 MG CAPS 4 cap po at night MINIPRESS 2 MG CAPS 105187 PRAZOSIN HCL Inactive MIRALAX PACK 1 po qd PRN Constipation MIRALAX PACK 642383 POLYETHYLENE GLYCOL 3350 Inactive METOPROLOL TARTRATE 25 MG ORAL TABS 1/2 tablet twice daily for heart rate and blood pressure METOPROLOL TARTRATE 25 MG ORAL TABS 767887 METOPROLOL TARTRATE Inactive VALIUM 5 MG TAB Take 1-2 tablets daily VALIUM 5 MG TAB 438669 DIAZEPAM Inactive FLAGYL 500 MG TAB 1 tablet by mouth bid FLAGYL 500 MG TAB 092652 METRONIDAZOLE Inactive DICLOFENAC POTASSIUM TABS Take 1 tablet twice a day (pt. is not sure of the dose.) DICLOFENAC POTASSIUM TABS DICLOFENAC POTASSIUM TABS Inactive ZITHROMAX Z-EARNEST 250 MG TABS 2 today and then 1 daily for 4 days ZITHROMAX Z-EARNEST 250 MG TABS 5257833 AZITHROMYCIN Inactive PREDNISONE 20 MG TABS 2 daily for 5 days then 1 daily for 5 days PREDNISONE 20 MG TABS 425164 PREDNISONE Inactive PROAIR HFA 108 (90 BASE) MCG/ACT AERS 2 puffs four times a day as needed 2015 PROAIR HFA 108 (90 BASE) MCG/ACT AERS ALBUTEROL SULFATE Inactive HYDROCODONE-ACETAMINOPHEN 5-325 MG TABS 1 to 2 four times a day as needed for pain use until can be seen by specialist HYDROCODONE- ACETAMINOPHEN 5-325 MG TABS 325924 HYDROCODONE-ACETAMINOPHEN Inactive TESSALON PERLES 100 MG CAP 1 to 2 tablets by mouth 3 times daily as needed for cough TESSALON PERLES 100 MG CAP 189569 BENZONATATE Inactive CHANTIX STARTING MONTH EARNEST 0.5 [...] Pain 2015 DICLOFENAC SODIUM 50 MG TBEC 368542 DICLOFENAC SODIUM Inactive TOPAMAX 50 MG ORAL TABS 1 tab twice daily TOPAMAX 50 MG ORAL TABS 389851 TOPIRAMATE Inactive VIIBRYD 10 MG ORAL TABS Take 1 tablet once a day VIIBRYD 10 MG ORAL TABS VILAZODONE HCL Inactive LEVOFLOXACIN 500 MG ORAL TABS po daily LEVOFLOXACIN 500 MG ORAL TABS 624057 LEVOFLOXACIN Inactive METHYLPREDNISOLONE 4 MG ORAL TABS po daily METHYLPREDNISOLONE 4 MG ORAL TABS 659747 METHYLPREDNISOLONE Inactive OXYCODONE HCL ER 10 MG ORAL T12A 1/2 tab by mouth every 4 hours prn OXYCODONE HCL ER 10 MG ORAL T12A OXYCODONE HCL Inactive FLAGYL 500 MG TAB 1 tablet by mouth bid FLAGYL 500 MG TAB 500478 METRONIDAZOLE Inactive MONISTAT 7 COMBO PACK WOODROW 100 & 2 MG-% (9GM) VAG KIT 1 applicatorful per vagina q pm x 7 MONISTAT 7 COMBO PACK WOODROW 100 & 2 MG-% (9GM) VAG KIT MICONAZOLE NITRATE Inactive BACTRIM DS 800-160 MG TABS 1 twice a day BACTRIM DS 800-160 MG TABS 048966 SULFAMETHOXAZOLE-TRIMETHOPRIM Inactive TRAMADOL HCL 50 MG TABS 1/2-1 tab TID PRN TRAMADOL HCL 50 MG TABS 044960 TRAMADOL HCL Inactive ABILIFY MAINTENA 400 MG IM SUSR 400mg injection every 26 days ABILIFY MAINTENA 400 MG IM SUSR ARIPIPRAZOLE Inactive KLONOPIN 1 MG ORAL TABS 1 tab po TID KLONOPIN 1 MG ORAL TABS 004665 CLONAZEPAM Inactive ADVAIR DISKUS 250-50 MCG/DOSE INH AEPB 1 puff twice a day for asthma ADVAIR DISKUS 250-50 MCG/DOSE INH AEPB FLUTICASONE- SALMETEROL Inactive BENADRYL 25 MG CAP 4 po at bedtime for insomnia BENADRYL 25 MG CAP DIPHENHYDRAMINE HCL Inactive PREDNISONE 20 MG TABS 2 daily for 5 days then 1 daily for 5 days PREDNISONE 20 MG TABS 718127 PREDNISONE Inactive HYDROCODONE-ACETAMINOPHEN 5-325 MG ORAL TABS 1 tab two times a day HYDROCODONE-ACETAMINOPHEN 5-325 MG ORAL TABS 996940 HYDROCODONE-ACETAMINOPHEN Inactive ZITHROMAX Z-EARNEST 250 MG TABS 2 today and then 1 daily for 4 days ZITHROMAX Z-EARNEST 250 MG TABS 1544625 AZITHROMYCIN Inactive GUAIFENESIN-CODEINE 100-10 MG/5ML SYRP 5ml every 4 to 6 hours as needed for cough GUAIFENESIN-CODEINE 100-10 MG/5ML SYRP 952594 GUAIFENESIN-CODEINE Inactive HALOPERIDOL 10 MG ORAL TABS 1 tab q.d HALOPERIDOL 10 MG ORAL TABS 343826 HALOPERIDOL Inactive ASPIRIN 325 MG ORAL TABS 1 tab q.d ASPIRIN 325 MG ORAL TABS 199850 ASPIRIN Inactive FLUTICASONE PROPIONATE 50 MCG/ACT SUSP 2 sprays each nostril daily before bed. FLUTICASONE PROPIONATE 50 MCG/ACT SUSP 7079962 FLUTICASONE PROPIONATE Inactive ZOFRAN 4 MG TABS 1 po q6hr PRN Nausea ZOFRAN 4 MG TABS 760526 ONDANSETRON HCL Inactive KEFLEX 500 MG CAP 1 po qid KEFLEX 500 MG CAP 318467 CEPHALEXIN Inactive ACETAMINOPHEN-CODEINE 120-12 MG/5ML SOLN 5 ml by mouth every 4-6 hours if needed for cough ACETAMINOPHEN-CODEINE 120-12 MG/5ML SOLN 012251 ACETAMINOPHEN-CODEINE Inactive PREDNISONE 20 MG TAB 1 tablet daily x 4 days PREDNISONE 20 MG TAB 432960 PREDNISONE Inactive TROPICAMIDE 0.5 % OPHTH SOLN 1 drop PRN eye spasms TROPICAMIDE 0.5 % OPHTH SOLN 951966 TROPICAMIDE Inactive LEVAQUIN 500 MG TABS 1 daily for infection LEVAQUIN 500 MG TABS 578663 LEVOFLOXACIN Inactive PREDNISONE 10 MG TABS 2 daily for 5 days then 1 daily for 5 days PREDNISONE 10 MG TABS [id number] PREDNISONE Inactive EQ NICOTINE 21 MG/24HR TRANS PT24 Apply daily to stop smoking EQ NICOTINE 21 MG/24HR TRANS PT24 NICOTINE Inactive DIFLUCAN 150 MG TABS 1 by mouth for yeast DIFLUCAN 150 MG TABS [id number] FLUCONAZOLE Inactive BACTRIM DS 800-160 MG TABS 1 twice a day BACTRIM DS 800-160 MG TABS [id number] SULFAMETHOXAZOLE-TRIMETHOPRIM Inactive TESSALON PERLES 100 MG CAPS 1 three times a day as needed for cough TESSALON PERLES 100 MG CAPS 134428 BENZONATATE Inactive AMITIZA 8 MCG ORAL CAPS [...] twice a day MUPIROCIN 2 % OINT [id number] MUPIROCIN Inactive CEFDINIR 300 MG CAPS by mouth twice a day CEFDINIR 300 MG CAPS 258159 CEFDINIR Inactive PREDNISONE 20 MG TAB 2 tabs daily for 3 days, 1 tab daily for 3 days, 1/2 tab daily for 2 days PREDNISONE 20 MG TAB 260130 PREDNISONE Inactive BACTRIM DS 800-160 MG TABS [...] x 10 days KEFLEX 500 MG CAP [id number] CEPHALEXIN Inactive Advance Directives Directive Description Start [...] % 11.0-15.0 platelet count 443 THOUSAND/UL 10*3/mm3 [phone]/03/01 mean platelet volume 8.2 fL 7.5-12.5 leukocyte [...] % 11.0-15.0 platelet count 349 THOUSAND/UL 10*3/mm3 [phone]/04/12 mean platelet volume 8.4 fL 7.5-12.5 Lab [...] % 11.6-14.8 platelet count 369 10^3/MM^3 10*3/mm3 498-052 1885/12/21 leukocyte count, blood 11.1 10^3/MM^3 10*3/mm3 4.6-10.2 Lab Report: Chlamydia/GC APTIMA/49535 - Lab chlamydia DNA probe NOT DETECTED NOT DETECTED Lab Report: Chlamydia/GC APTIMA/54324 - Microbiology Neisseria gonorrhoeae DNA probe NOT DETECTED NOT DETECTED Lab Report: Chlamydia/GC APTIMA/55650, Urinalysis, Complete, with Reflex ... - Lab chlamydia DNA probe NOT DETECTED NOT DETECTED Lab Report: Chlamydia/GC APTIMA/30552, Urinalysis, Complete, with Reflex ... - Microbiology Neisseria gonorrhoeae DNA probe NOT DETECTED NOT DETECTED Lab Report: Chlamydia/GC APTIMA/84092, Urinalysis, Complete, with Reflex ... - Urinalysis microalbumin/total urine volume 2 mg/L Units converted. See lab report for original value. microalbumin/creatinine ratio, urine 9 MCG/MG CREAT mg/L <30 Lab Report: Comp. Metabolic Panel - Chemistry blood glucose 80 mg/dL 65-110 chloride, serum 103 mmol/L 98-107 potassium, serum 5.0 mmol/L 3.5-5.2 carbon dioxide, venous blood 33.7 mmol/L 21.0-32.0 sodium, serum 140 mmol/L 259-070 4174/08/08 urea nitrogen, blood 13 mg/dL 7-18 creatinine, serum 0.88 mg/dL 0.55-1.30 alanine aminotransferase (SGPT), serum 54 U/L 12-78 aspartate aminotransferase (SGOT), serum 29 U/L 15-37 calcium, serum 9.7 mg/dL 8.5-10.1 bilirubin, serum, total 0.30 mg/dL 0.00-1.00 sodium, serum 140 mmol/L 216-575 9432/06/28 carbon dioxide, venous blood 23.8 mmol/L 21.0-32.0 [...] 5.0-8.5 Encounters Code Encounter Date Provider Facility CPT-38197 Level 3 Est. Patient 15:55:20 [facility]-44887 Level 4 Est. Patient 10:49:34 CDT Suzan [facility] CPT-05601 Level 3 Est. Patient 10:00:25 CDT [facility]PT-53254 Level 3 Est. Patient 10:29:30 CDT Suzan Boo [facility] CPT-46954 Level 3 Est. Patient 11:04:38 CDT Renzo Thornton [facility] CPT-20522 Level 3 Est. Patient 11:15:58 MANAGER WEB APPLICATION Renzo Thornton [facility] CPT-44097 Level 3 Est. Patient 15:28:23 MANAGER WEB APPLICATION Suzan Boo [facility] CPT-00972 Level 4 Est. Patient 10:20:54 MANAGER WEB APPLICATION [facility]PT-79279 Level 3 Est. Patient 11:47:37 MANAGER WEB APPLICATION Ahmet Carbajal MD [facility] CPT-81769 Level 3 Est. Patient 10:40:11 MANAGER WEB APPLICATION Ahmet Carbajal MD [facility] CPT-01602 Level 3 Est. Patient 15:07:06 MANAGER WEB APPLICATION Neeraj Collins MD [facility] CPT-29552 Level 4 Est. Patient 14:45:00 MANAGER WEB APPLICATION Ahmet Carbajal MD [facility] CPT-55187 Level 3 Est. Patient 13:59:59 CDT Luigi Martínez [facility] CPT-82953 Level 3 Est. Patient 18:18:53 CDT Neeraj Collins MD [facility] CPT-43534 Level 3 Est. Patient 15:50:44 CDT Vishal Hui MD [facility] CPT-58913 Level 3 Est. Patient 11:36:17 CDT Ahmet Carbajal MD [facility] CPT-35910 Level 3 Est. Patient 13:29:16 CDT Vishal Hui MD [facility] CPT-74065 Level 3 Est. Patient 14:27:52 CDT Neeraj Collins MD [facility] CPT-18808 Level 3 Est. Patient 08:56:03 CDT Luigi Martínez [facility] CPT-05396 Level 4 Est. Patient 12:11:48 CDT Fabiola Johnson [facility] CPT-85193 Level 3 New Patient 16:53:37 CDT Albert Caldera MD [facility] CPT-23868 Level 3 Est. Patient 11:25:49 CDT Renzo Thortnon DO [facility] CPT-37137 Level 3 Est. Patient 15:22:01 CDT Ahmet Carbajal MD [facility] CPT-32648 Level 4 Est. Patient 09:00:51 MANAGER WEB APPLICATION Vishal Hui MD [facility] CPT-51018 Level 3 Est. Patient 11:37:33 MANAGER WEB APPLICATION Vishal Hui MD [facility] CPT-15173 Level 3 Est. Patient 08:41:09 MANAGER WEB APPLICATION Vishal Hui MD [facility] CPT-73153 Level 4 Est. Patient 10:19:35 MANAGER WEB APPLICATION Vishal Hui MD [facility] CPT-16847 Level 3 Est. Patient 13:35:45 CDT Vishal Hui MD [facility] CPT-54266 Level 4 Est. Patient 10:08:37 CDT Vishal Hui MD [facility] CPT-25747 Level 3 Est. Patient 11:22:10 CDT Vishal Hui MD [facility] CPT-88333 Level 3 Est. Patient 11:03:32 CDT Sahara Rodriguez MD [facility]-41748 Level 3 Est. Patient 09:41:35 CDT Vishal Hui MD [facility] CPT-41210 Level 3 Est. Patient 12:00:41 CDT Neeraj Collins MD [facility] CPT-73067 Level 3 Est. Patient 09:16:24 CDT Vishal Hui MD [facility] CPT-17908 Level 4 Est. Patient 13:59:09 CDT Neeraj Collins MD [facility] CPT-52171 Level 3 Est. Patient 15:19:43 CDT Renzo Thornton DO [facility] CPT-86780 Level 3 Est. Patient 18:10:26 CDT Sahara Rodriguez MD [facility] CPT-37947 Level 3 Est. Patient 14:49:50 CDT Vishal Hui MD [facility] CPT-71837 Level 4 Est. Patient 18:41:46 CDT Neeraj Collins MD [facility] CPT-86820 Level 4 Est. Patient 09:18:38 MANAGER WEB APPLICATION Vishal Hui MD [facility] CPT-55044 Level 3 Est. Patient 14:43:55 MANAGER WEB APPLICATION Vishal Hui MD [facility] CPT-10289 Level 3 Est. Patient 15:26:33 MANAGER WEB APPLICATION Sahara Rodriguez MD PhD [facility] CPT-11209 Level 3 Est. Patient 10:32:14 MANAGER WEB APPLICATION Vishal Hui MD [facility] CPT-73287 Level 3 Est. Patient 15:12:52 MANAGER WEB APPLICATION Vishal Hui MD [facility] CPT-50481 Level 4 Est. Patient 09:19:27 CDT Vishal Hui MD [facility] CPT-98008 Level 3 Est. Patient 15:53:00 CDT Renzo Barajas [facility] CPT-73687 Level 3 Est. Patient 15:50:30 CDT Renzo Thornton [facility] CPT-24540 Level 3 Est. Patient 16:55:24 CDT Vishal Hui MD [facility] Procedures Code Procedure Name Date Entry Date Standard Description CPT-95613 EKG Trac and Interp - XRAY USE ONLY 15:59:30 CDT 09/13 CPT-40834 Chest 1V Frontal - XRAY USE ONLY 15:59:30 CDT CPT-09377 Venipuncture Draw Fee 15:44:02 CDT CPT-93036 Venipuncture Draw Fee 08:41:12 CDT CPT-20300 Abd compl w upright - XRAY USE ONLY 10:27:59 CDT 06/28 CPT-78370 Smoking Cessation counseling 11:15:58 MANAGER WEB APPLICATION CPT-G0439 [facility] Annual Wellness Exam 09:30:58 MANAGER WEB APPLICATION CPT-07158 TSH - LAB USE ONLY 08:50:26 MANAGER WEB APPLICATION CPT-57066 CBC - LAB USE ONLY 08:50:26 MANAGER WEB APPLICATION CPT-19005 Venipuncture Draw Fee 08:50:26 MANAGER WEB APPLICATION CPT-82070 Abx/Therapy Injection 17:34:30 MANAGER WEB APPLICATION CPT-31811 Nexplanon Removal with Reinsertion 14:09:32 CDT CPT-J7307 Nexplanon (Implant) 14:09:32 CDT CPT-OV Office Visit 14:09:32 CDT CPT-47920 UA w micro - LAB USE ONLY 16:21:13 CDT CPT-54364 Wet Mount - LAB USE ONLY 16:21:13 CDT CPT-50990 First Vx - Ix admin for Medicare patients 14:37:47 CDT CPT-60834 Fluzone Preservative Free Intramuscular Suspension 14:37 :47 CDT CPT-42060 Abx/Therapy Injection 13:54:22 CDT CPT-81820 Abx/Therapy Injection 08:47:09 CDT CPT-54998 Abx/Therapy Injection 13:29:56 CDT CPT-85157 Abx/Therapy Injection 08:36:16 CDT CPT-81167 Wet Mount - LAB USE ONLY 17:44:58 CDT CPT-66380 UA w micro - LAB USE ONLY 17:44:58 CDT CPT-76758 CMP - LAB USE ONLY 17:44:58 CDT CPT-41861 Venipuncture Draw Fee 17:44:58 CDT CPT-08742 Cervical Min 4V - XRAY USE ONLY 09:01:40 CDT CPT-47584 Chest 2V Frontal and Lat - XRAY USE ONLY 11:06:31 CDT CPT-71784 EKG Trac and Interp - XRAY USE ONLY 11:31:43 CDT 08/26 CPT-J3420 Vitamin B12 1000mcg (Cyanocobalamin) 08:10:26 MANAGER WEB APPLICATION 04/12 CPT-61727 Abx/Therapy Injection 08:10:26 MANAGER WEB APPLICATION CPT-G0438 Initial Annual Wellness Exam 19:01:01 MANAGER WEB APPLICATION CPT-J3420 Vitamin B12 1000mcg (Cyanocobalamin) 16:57:46 CDT 08/14 CPT-46016 Recombivax HB Injection Suspension 5 MCG/0.5ML 08:37:50 MANAGER WEB APPLICATION CPT-71851 Immunization Single Admin 08:37:50 MANAGER WEB APPLICATION CPT-J3420 Vitamin B12 1000mcg (Cyanocobalamin) 08:32:16 MANAGER WEB APPLICATION 03/11 CPT-49034 Abx/Therapy Injection 08:32:16 MANAGER WEB APPLICATION CPT-05129 Chest 2V Frontal and Lat 11:46:38 MANAGER WEB APPLICATION CPT-58194 Venipuncture Draw Fee 09:12:45 MANAGER WEB APPLICATION CPT-J3420 Vitamin B12 1000mcg (Cyanocobalamin) 08:50:15 MANAGER WEB APPLICATION 02/08 CPT-18335 Abx/Therapy Injection 08:50:15 MANAGER WEB APPLICATION CPT-Cryo Cryotherapy 10:19:35 MANAGER WEB APPLICATION CPT-000 Give Appropriate Flu Vaccine 09:22:16 CDT CPT-J3420 Vitamin B12 1000mcg (Cyanocobalamin) 19:08:57 CDT 01/11 CPT-32195 Abx/Therapy Injection 19:08:57 CDT CPT-J3420 Vitamin B12 1000mcg (Cyanocobalamin) 08:19:08 CDT 12/11 CPT-63708 Abx/Therapy Injection 08:19:08 CDT CPT-J3420 Vitamin B12 1000mcg (Cyanocobalamin) 14:48:00 CDT 11/09 CPT-49644 Abx/Therapy Injection 14:47:59 CDT CPT-J3420 Vitamin B12 1000mcg (Cyanocobalamin) 08:34:04 CDT 10/09 CPT-91775 Abx/Therapy Injection 08:34:04 CDT CPT-J3420 Vitamin B12 1000mcg (Cyanocobalamin) 09:18:52 CDT 09/11 CPT-06529 Abx/Therapy Injection 09:18:52 CDT CPT-J3420 Vitamin B12 1000mcg (Cyanocobalamin) 08:35:44 CDT 09/04 CPT-31793 Abx/Therapy Injection 08:35:44 CDT CPT-03161 Immunization Single Admin 11:07:16 CDT CPT-50853 Hepatitis B adult IM 11:07:16 CDT CPT-J3420 Vitamin B12 1000mcg (Cyanocobalamin) 11:00:49 CDT 08/28 CPT-J1040 Depo Medrol 80 mg (Methyl Prednisolone Acetate) 11:00: 49 CDT CPT-20947 Abx/Therapy Injection 11:00:49 CDT CPT-J1040 Depo Medrol 80 mg (Methyl Prednisolone Acetate) 09:16: 23 CDT CPT-J3420 Vitamin B12 1000mcg (Cyanocobalamin) 08:27:05 CDT 08/20 CPT-02768 Abx/Therapy Injection 08:27:05 CDT CPT-17061 Recombivax HB Injection Suspension 5 MCG/0.5ML 10:00:41 CDT CPT-36055 Administration single or combination vaccine inc oral 10 :00:41 CDT CPT-46781 Sono transvag pelvis non OB uterus ovaries cervix 16:36: 57 CDT CPT-77610 LS spine comp w obliq 09:50:55 MANAGER WEB APPLICATION CPT-50504 Abd compl w upright 09:50:55 MANAGER WEB APPLICATION CPT-J1100 Decadron 4mg (Dexamethasone) 15:51:24 MANAGER WEB APPLICATION CPT-J1030 Depo Medrol 40 mg (Methyl Prednisolone Acetate) 15:51: 24 MANAGER WEB APPLICATION CPT-44381 Abx/Therapy Injection 15:51:24 MANAGER WEB APPLICATION CPT-J1100 Decadron 4mg (Dexamethasone) 15:26:33 MANAGER WEB APPLICATION CPT-J1030 Depo Medrol 40 mg (Methyl Prednisolone Acetate) 15:26: 33 MANAGER WEB APPLICATION CPT-36704 Sono retroperitoneal complete kidneys and bladder 17:15: 30 CDT CPT-41869 Abd compl w upright 16:09:25 CDT CPT-J1100 Decadron 8mg (Dexamethasone) 17:07:57 CDT CPT-55577 Abx/Therapy Injection 17:07:57 CDT CPT-J1100 Decadron 8mg (Dexamethasone) 16:55:24 CDT CPT-18357 Chest 2V Frontal and Lat 16:32:44 CDT
--- OUTSIDE RECORDS SUMMARY | 2016-11-04 19:08 | XMS REPORT ---
Author Author [email or web address] Medical Staff Organization [facility] Address [address] [place], [place] [id number] Phone [phone] Care Team Providers Care Driver Messenger Name Role Phone DENICE OCHOA MD, PP [phone] Summary purpose TRANSITION OF CARE AUTO GENERATION [...]
--- OUTSIDE RECORDS SUMMARY | 2016-11-04 19:11 | XMS REPORT | Clinical Summary ---
Author Author Admin, FLOR Organization [employer] Address Unknown Phone Unavailable Allergies, Adverse Reactions, [...] Morbid obesity 278.01 Active Juliet Kimbrough CORPORATE RELATIONS DIRECTOR Morbid obesity 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 Active [...] breath Nocturnal hypoxia 799.02 Active Fabiola Johnson CORPORATE RELATIONS DIRECTOR Hypoxemia Neck pain 723.1 Resolved Vishal [...] fibula Vaginal discharge 623.5 Active Luigi Martínez CORPORATE RELATIONS DIRECTOR Leukorrhea, not specified as infective DYSURIA [...] Hui MD Physical examination ICD-V70.0 Inactive Vishal uHi MD Vaginitis ICD-616.10 Inactive Vishal Hui MD [...] each nostril daily for allergies FLUTICASONE PROPIONATE 30137121972 Active Tila Valenzuela Active GUAIFENESIN-CODEINE 100-10 MG/5ML SYRP 5ml every 4 to 6 hours as needed for cough GUAIFENESIN-CODEINE 35639310807 Active Ahmet Carbajal MD Active PREDNISONE 20 MG TABS 2 daily for 5 days then 1 daily for 5 days PREDNISONE 03224567230 Active Ahmet Carbajal MD Active LAMICTAL 100 MG ORAL TABS 1 tab q.d LAMOTRIGINE 06008946332 Active Ahmet Carbajal MD Active BENADRYL 25 MG CAP 4 po at bedtime for insomnia DIPHENHYDRAMINE HCL 61872913268 No Longer Active Ahmet Carbajal MD Active ADVAIR DISKUS 250-50 MCG/DOSE INH AEPB 1 puff twice a day for asthma FLUTICASONE-SALMETEROL 53677330581 No Longer Active Ahmet Carbajal MD Active KLONOPIN 1 MG ORAL TABS 1 tab po TID CLONAZEPAM 42754493509 No Longer Active Ahmet Carbajal MD Active ABILIFY MAINTENA 400 MG IM SUSR 400mg injection every 26 days ARIPIPRAZOLE 82753795736 No Longer Active Ahmet Carbajal MD Active HALOPERIDOL 10 MG ORAL TABS 1 tab q.d HALOPERIDOL 67299196878 Active Ahmet Carbajal MD Active ASPIRIN 325 MG ORAL TABS 1 tab q.d ASPIRIN 79657716397 Active Ahmet Carbajal MD Active HYDROCODONE-ACETAMINOPHEN 5-325 MG ORAL TABS 1 tab two times a day HYDROCODONE-ACETAMINOPHEN 54689991228 Active Ahmet Carbajal MD Active TRAMADOL HCL 50 MG TABS 1/2-1 tab TID PRN TRAMADOL HCL 56807364895 No Longer Active Ahmet Carbajal MD Active BACTRIM DS 800-160 MG TABS 1 twice a day SULFAMETHOXAZOLE- TRIMETHOPRIM 76789308198 No Longer Active Ahmet Carbajal MD Active PROAIR HFA 108 (90 BASE) MCG/ACT AERS 2 puffs four times a day as needed 2015 ALBUTEROL SULFATE 53926089011 Active Ahmet Carbajal MD Active EQ NICOTINE 21 MG/24HR TRANS PT24 Apply daily to stop smoking NICOTINE 80217563229 Active Ahmet Carbajal MD Active MONISTAT 7 COMBO PACK WOODROW 100 & 2 MG-% (9GM) VAG KIT 1 applicatorful per vagina q pm x 7 MICONAZOLE NITRATE 33581815291 No Longer Active Ahmet Carbajal MD Active FLAGYL 500 MG TAB 1 tablet by mouth bid METRONIDAZOLE 59912836985 No Longer Active Ahmet Carbajal MD Active OXYCODONE HCL ER 10 MG ORAL T12A 1/2 tab by mouth every 4 hours prn OXYCODONE HCL 19236075919 No Longer Active Ahmet Carbajal MD Active METHYLPREDNISOLONE 4 MG ORAL TABS po daily METHYLPREDNISOLONE 97575746117 No Longer Active Ahmet Carbajal MD Active LEVOFLOXACIN 500 MG ORAL TABS po daily LEVOFLOXACIN 17202128242 No Longer Active Ahmet Carbajal MD Active VIIBRYD 10 MG ORAL TABS Take 1 tablet once a day VILAZODONE HCL 67079089607 No Longer Active Ahmet Carbajal MD Active TOPAMAX 50 MG ORAL TABS 1 tab twice daily TOPIRAMATE 26147852582 No Longer Active Ahmet Carbajal MD Active DICLOFENAC SODIUM 50 MG TBEC 1 tablet by mouth four times daily PRN Pain 2015 DICLOFENAC SODIUM 85675626416 No Longer Active Ahmet Carbajal MD Active ADZENYS XR-ODT 6.3 MG ORAL TBED 1 tab po daily for ADHD AMPHETAMINE 65021727077 No Longer Active Ahmet Carbajal MD Active CHANTIX 1 MG TABS 1 twice a day to help quit smoking VARENICLINE TARTRATE 42383023858 No Longer Active Dipika Burgos MD Active CHANTIX STARTING MONTH EARNEST 0.5 MG X 11 & 1 MG X 42 TABS take as directed 2015 VARENICLINE TARTRATE 33195693933 No Longer Active Dipika Burgos MD Active TESSALON PERLES 100 MG CAP 1 to 2 tablets by mouth 3 times daily as needed for cough BENZONATATE 38420588815 No Longer Active Luigi Martínez CORPORATE RELATIONS DIRECTOR Active IMITREX 50 MG ORAL TABS 0.5 po x 1 PRN Headache. May repeat dose x 1 in 2 hours if needed SUMATRIPTAN SUCCINATE 29868484335 Active TAMARA Casey Active HYDROCODONE-ACETAMINOPHEN 5-325 MG TABS 1 to 2 four times a day as needed for pain use until can be seen by specialist HYDROCODONE- ACETAMINOPHEN 92184846979 No Longer Active Vishal Hui MD Active PROAIR HFA 108 (90 BASE) MCG/ACT AERS 2 puffs four times a day as needed 2015 ALBUTEROL SULFATE 24163000934 No Longer Active Vishal Hui MD Active PREDNISONE 20 MG TABS 2 daily for 5 days then 1 daily for 5 days PREDNISONE 40693583857 No Longer Active Vishal Hui MD Active ZITHROMAX Z-EARNEST 250 MG TABS 2 today and then 1 daily for 4 days AZITHROMYCIN 15277169282 No Longer Active Vishal Hui MD Active DICLOFENAC POTASSIUM TABS Take 1 tablet twice a day (pt. is not sure of the dose.) DICLOFENAC POTASSIUM TABS 44126836918 No Longer Active Vishal Hui MD Active VERAPAMIL HCL ER 120 MG ORAL CR-TABS Take 1 tablet by mouth twice a day. VERAPAMIL HCL 35814828335 Active Vishal Hui MD Active FLAGYL 500 MG TAB 1 tablet by mouth bid METRONIDAZOLE 92085881789 No Longer Active Vishal Hui MD Active FLUTICASONE PROPIONATE 50 MCG/ACT SUSP 2 sprays each nostril daily before bed. FLUTICASONE PROPIONATE 24661389647 Active Fabiola Johnson APRN Active VALIUM 5 MG TAB Take 1-2 tablets daily DIAZEPAM 55302908756 No Longer Active Fabiola Johnson APRN Active METOPROLOL TARTRATE 25 MG ORAL TABS 1/2 tablet twice daily for heart rate and blood pressure METOPROLOL TARTRATE 39648151284 No Longer Active Fabiola Johnson APRN Active MIRALAX ORAL POWD 17GMS DAILY IN WATER POLYETHYLENE GLYCOL 3350 82482784705 Active Vishal Hui MD Active MIRALAX PACK 1 po qd PRN Constipation POLYETHYLENE GLYCOL 3350 24736115669 No Longer Active Ahmet Carbajal MD Active MINIPRESS 2 MG CAPS 4 cap po at night PRAZOSIN HCL 09453531153 No Longer Active Ahmet Carbajal MD Active PIROXICAM 20 MG CAPS 1 cap po qd PRN Pain PIROXICAM 40096700346 No Longer Active Ahmet Carbajal MD Active TRAMADOL HCL 50 MG TABS 1-2 po TID PRN Pain TRAMADOL HCL 74346500772 No Longer Active Ahmet Carbajal MD Active METOPROLOL TARTRATE 50 MG TAB 1 po bid METOPROLOL TARTRATE 38175979291 No Longer Active Ahmet Carbajal MD Active ABILIFY 15 MG ORAL TABS 1 tab daily ARIPIPRAZOLE 10222627006 No Longer Active Ahmet Carbajal MD Active PROZAC 20 MG ORAL CAPS 1 tab daily FLUOXETINE HCL 24723264117 No Longer Active Ahmet Carbajal MD Active AMBIEN 5 MG ORAL TABS 1 tab at bedtime ZOLPIDEM TARTRATE 61811517796 No Longer Active Ahmet Carbajal MD Active PREDNISONE 20 MG TAB 2 tabs daily for 4 days, 1 tab daily for 4 days, 1/2 tab daily for 4 days PREDNISONE 15545760336 No Longer Active Ahmet Carbajal MD Active KEFLEX 500 MG CAP 1 po TID x 10 days CEPHALEXIN 25298537275 No Longer Active Vishal Hui MD Active SAPHRIS 5 MG SUBL 1 po bid ASENAPINE MALEATE 53427512899 No Longer Active Jillina Frazelephraim CORPORATE RELATIONS DIRECTOR Active LATUDA 80 MG TABS Take one by mouth daily LURASIDONE HCL 17499643926 No Longer Active Jillina Frazell CORPORATE RELATIONS DIRECTOR Active AMLODIPINE BESYLATE 5 MG TABS 1 tablet by mouth daily AMLODIPINE BESYLATE 01779767717 No Longer Active Jillina Fradwightl CORPORATE RELATIONS DIRECTOR Active AMITRIPTYLINE HCL 100 MG TAB one at hs AMITRIPTYLINE HCL 51462638617 No Longer Active Vishal Hui MD Active TRAZODONE HCL 100 MG TAB take 1 at bedtime TRAZODONE HCL 20730156578 No Longer Active Vishal Hui MD Active VYVANSE 40 MG CAPS 1 daily, LISDEXAMFETAMINE DIMESYLATE 94482275860 No Longer Active Vishal Hui MD Active IBUPROFEN 600 MG TAB 1 po TID PRN IBUPROFEN 84952965940 No Longer Active Vishal Hui MD Active PROZAC 20 MG CAP Take one by mouth daily FLUOXETINE HCL 17044706524 No Longer Active Vishal Hui MD Active ZOFRAN 4 MG TABS 1 po q6hr PRN Nausea ONDANSETRON HCL Active Vishal Hui MD Active BACTRIM DS 800-160 MG TABS 1 pill by mouth twice daily SULFAMETHOXAZOLE-TRIMETHOPRIM 86862018884 No Longer Active Sahara Rodriguez MD PhD Active DIFLUCAN 150 MG TAB 1 tablet by mouth daily FLUCONAZOLE 30712804860 No Longer Active Vishal Hui MD Active TIZANIDINE HCL 4 MG TABS 1 po q6hr PRN Muscle Spasm/Back Pain TIZANIDINE HCL 57985402349 Active Vishal Hui MD Active CLINDAMYCIN HCL 150 MG CAPS 1 four times a day CLINDAMYCIN HCL 79810126671 No Longer Active Neeraj Collins MD Active KEFLEX 500 MG ORAL CAPS 1 cap QID by mouth CEPHALEXIN 53937741132 No Longer Active Neeraj Collins MD Active DIFLUCAN 150 MG TABS 1 pill every other day x 2 doses FLUCONAZOLE 29763741427 No Longer Active Sahara Rodriguez MD PhD Active MELATONIN 3 MG CAPS 2 po q hs MELATONIN 11684157950 No Longer Active Sahara Rodriguez MD PhD Active MULTIVITAMINS CAPS Take one by mouth daily MULTIPLE VITAMIN 15745069913 No Longer Active Sahara Rodriguez MD PhD Active BACTRIM DS 800-160 MG TAB 1 tab by mouth twice daily TRIMETHOPRIM-SULFAMETHOXAZOLE 25743142124 No Longer Active Sahara Rodriguez MD PhD Active [facility] PROBIOTIC ORAL CHEW 2 daily po PROBIOTIC PRODUCT 41315671070 No Longer Active Sahara Rodriguez MD PhD Active BACTRIM DS 800-160 MG TABS 1 po BID x 7 days SULFAMETHOXAZOLE-TRIMETHOPRIM 61695786523 No Longer Active Vishal Hui MD Active CHANTIX STARTING MONTH EARNEST 0.5 MG X 11 & 1 MG X 42 TABS 0.5mg daily for 3 days , then 0.5mg BID for 4 days, then 1mg BID VARENICLINE TARTRATE 39982994956 No Longer Active TAMARA Gray Active VERAPAMIL HCL CR 120 MG TAB CR 1 po bid VERAPAMIL HCL 35341808431 No Longer Active Vishal Hui MD Active METOPROLOL SUCCINATE 50 MG TB24 1 tablet by mouth daily METOPROLOL SUCCINATE 55608491522 No Longer Active Vishal Hui MD Active SAPHRIS 10 MG SUBL 1 tab po bid ASENAPINE MALEATE 60492959401 No Longer Active Vishal Hui MD Active LISINOPRIL 20 MG TABS 1 tab po qd LISINOPRIL 81475523176 No Longer Active Vishal Hui MD Active LATUDA 20 MG TABS Take one by mouth daily LURASIDONE HCL 88565510388 No Longer Active Vishal Hui MD Active TRAZODONE HCL 50 MG TABS 1/2 tab po qd prn for anxiety TRAZODONE HCL 15734796931 No Longer Active Vishal Hui MD Active OMEPRAZOLE 20 MG TBEC 1 po q a.m. 30min prior to first food intake OMEPRAZOLE 39387779288 Active Vishal Hui MD Active RANITIDINE HCL 150 MG CAPS 1 twice a day RANITIDINE HCL 86570116715 Active Jillina Messizelephraim CORPORATE RELATIONS DIRECTOR Active LINZESS 290 MCG CAPS Take one by mouth daily LINACLOTIDE 25333354411 No Longer Active Vishal Hui MD Active SAPHRIS 5 MG SUBL 1 tab po qd ASENAPINE MALEATE 51008742396 No Longer Active Vishal Hui MD Active ZALEPLON 10 MG CAPS 1 cap po every other night ZALEPLON 39888822515 No Longer Active Vishal Hui MD Active LYRICA 50 MG CAPS 1 tab po TID PREGABALIN 08238729372 No Longer Active Vishal Hui MD Active LORATADINE 10 MG TABS 1 tab po qd LORATADINE 99891042872 No Longer Active Vishal Hui MD Active VERAPAMIL HCL ER 180 MG CR-TABS 1 tab po bid VERAPAMIL HCL 94837645422 No Longer Active Vishal Hui MD Active MIRALAX POWD 1 capfull once daily POLYETHYLENE GLYCOL 3350 66851271618 No Longer Active Vishal Hui MD Active PREDNISONE 20 MG TABS 1 tab po qd PREDNISONE 72353890602 No Longer Active Renzo Thornton DO Active LEVOFLOXACIN 500 MG TABS 1 tab po qd LEVOFLOXACIN 60202360145 No Longer Active Renzo Thornton DO Active BUSPIRONE HCL 15 MG TABS 1 tab po TID BUSPIRONE HCL 95570599664 No Longer Active Renzo Thornton DO Active BENZTROPINE MESYLATE 1 MG TABS 1 tab po qd BENZTROPINE MESYLATE 44082999421 No Longer Active Renzo Thornton DO Active ATENOLOL 25 MG TABS 1 tab po qd ATENOLOL 85804756584 No Longer Active Renzo Thornton DO Active ESCITALOPRAM OXALATE 20 MG TABS 1 tab po qd ESCITALOPRAM OXALATE 89864461962 No Longer Active Renzo Thornton DO Active ADVAIR DISKUS 250-50 MCG/DOSE AEPB 1 puff BID FLUTICASONE-SALMETEROL 41803159942 No Longer Active Renzo Thornton DO Active PREDNISONE 20 MG TAB 2 tabs daily for 3 days, 1 tab daily for 3 days, 1/2 tab daily for 2 days PREDNISONE 53213326922 No Longer Active Vishal Hui MD Active CEFDINIR 300 MG CAPS by mouth twice a day CEFDINIR 31140289209 No Longer Active Vishal Hui MD Active LANSOPRAZOLE 30 MG CPDR 1 cap po qd LANSOPRAZOLE 41253878556 No Longer Active Vishal Hui MD Active BACLOFEN 20 MG TABS 1 tab po tid BACLOFEN 19761138153 No Longer Active Vishal Hui MD Active ADVAIR DISKUS 250-50 MCG/DOSE AEPB 1 puff BID ADVAIR DISKUS 250-50 MCG/DOSE AEPB FLUTICASONE-SALMETEROL Inactive ESCITALOPRAM OXALATE 20 MG TABS 1 tab po qd ESCITALOPRAM OXALATE 20 MG TABS 144955 ESCITALOPRAM OXALATE Inactive ATENOLOL 25 MG TABS 1 tab po qd ATENOLOL 25 MG TABS 774621 ATENOLOL Inactive BENZTROPINE MESYLATE 1 MG TABS 1 tab po qd BENZTROPINE MESYLATE 1 MG TABS 111583 BENZTROPINE MESYLATE Inactive BUSPIRONE HCL 15 MG TABS 1 tab po TID BUSPIRONE HCL 15 MG TABS 907649 BUSPIRONE HCL Inactive LEVOFLOXACIN 500 MG TABS 1 tab po qd LEVOFLOXACIN 500 MG TABS 021913 LEVOFLOXACIN Inactive PREDNISONE 20 MG TABS 1 tab po qd PREDNISONE 20 MG TABS 291719 PREDNISONE Inactive MIRALAX POWD 1 capfull once daily MIRALAX POWD 982153 POLYETHYLENE GLYCOL 3350 Inactive VERAPAMIL HCL ER 180 MG CR-TABS 1 tab po bid VERAPAMIL HCL ER 180 MG CR-TABS VERAPAMIL HCL Inactive LORATADINE 10 MG TABS 1 tab po qd LORATADINE 10 MG TABS 321797 LORATADINE Inactive LYRICA 50 MG CAPS 1 tab po TID LYRICA 50 MG CAPS PREGABALIN Inactive ZALEPLON 10 MG CAPS 1 cap po every other night ZALEPLON 10 MG CAPS 282367 ZALEPLON Inactive SAPHRIS 5 MG SUBL 1 tab po qd SAPHRIS 5 MG SUBL ASENAPINE MALEATE Inactive TRAZODONE HCL 50 MG TABS 1/2 tab po qd prn for anxiety TRAZODONE HCL 50 MG TABS 197825 TRAZODONE HCL Inactive LATUDA 20 MG TABS Take one by mouth daily LATUDA 20 MG TABS LURASIDONE HCL Inactive LISINOPRIL 20 MG TABS 1 tab po qd LISINOPRIL 20 MG TABS 294437 LISINOPRIL Inactive SAPHRIS 10 MG SUBL 1 [...] twice daily BACTRIM DS 800-160 MG TAB 094675 TRIMETHOPRIM-SULFAMETHOXAZOLE Inactive MULTIVITAMINS CAPS Take one by mouth daily MULTIVITAMINS CAPS MULTIPLE VITAMIN Inactive MELATONIN 3 MG CAPS 2 po q hs MELATONIN 3 MG CAPS 864014 MELATONIN Inactive KEFLEX 500 MG ORAL CAPS 1 cap QID by mouth KEFLEX 500 MG ORAL CAPS 408855 CEPHALEXIN Inactive CLINDAMYCIN HCL 150 MG CAPS 1 four times a day CLINDAMYCIN HCL 150 MG CAPS 927937 CLINDAMYCIN HCL Inactive DIFLUCAN 150 MG TAB 1 tablet by mouth daily DIFLUCAN 150 MG TAB 981647 FLUCONAZOLE Inactive PROZAC 20 MG CAP Take one by mouth daily PROZAC 20 MG CAP 294030 FLUOXETINE HCL Inactive IBUPROFEN 600 MG TAB 1 po TID PRN IBUPROFEN 600 MG TAB 479044 IBUPROFEN Inactive VYVANSE 40 MG CAPS 1 daily, VYVANSE 40 MG CAPS LISDEXAMFETAMINE DIMESYLATE Inactive TRAZODONE HCL 100 MG TAB take 1 at bedtime TRAZODONE HCL 100 MG TAB 672601 TRAZODONE HCL Inactive AMITRIPTYLINE HCL 100 MG TAB one at hs AMITRIPTYLINE HCL 100 MG TAB 036280 AMITRIPTYLINE HCL Inactive AMLODIPINE BESYLATE 5 MG TABS 1 tablet by mouth daily AMLODIPINE BESYLATE 5 MG TABS 980207 AMLODIPINE BESYLATE Inactive LATUDA 80 MG TABS Take one by mouth daily LATUDA 80 MG TABS LURASIDONE HCL Inactive SAPHRIS 5 MG SUBL 1 po bid SAPHRIS 5 MG SUBL ASENAPINE MALEATE Inactive PREDNISONE 20 MG TAB 2 tabs daily for 4 days, 1 tab daily for 4 days, 1/2 tab daily for 4 days PREDNISONE 20 MG TAB 319877 PREDNISONE Inactive AMBIEN 5 MG ORAL TABS 1 tab at bedtime AMBIEN 5 MG ORAL TABS 538603 ZOLPIDEM TARTRATE Inactive PROZAC 20 MG ORAL CAPS 1 tab daily PROZAC 20 MG ORAL CAPS 833829 FLUOXETINE HCL Inactive ABILIFY 15 MG ORAL TABS 1 tab daily ABILIFY 15 MG ORAL TABS 349158 ARIPIPRAZOLE Inactive METOPROLOL TARTRATE 50 MG TAB 1 po bid METOPROLOL TARTRATE 50 MG TAB 687670 METOPROLOL TARTRATE Inactive TRAMADOL HCL 50 MG TABS 1-2 po TID PRN Pain TRAMADOL HCL 50 MG TABS 588549 TRAMADOL HCL Inactive PIROXICAM 20 MG CAPS 1 cap po qd PRN Pain PIROXICAM 20 MG CAPS 389510 PIROXICAM Inactive MINIPRESS 2 MG CAPS 4 cap po at night MINIPRESS 2 MG CAPS 060443 PRAZOSIN HCL Inactive MIRALAX PACK 1 po qd PRN Constipation MIRALAX PACK 367562 POLYETHYLENE GLYCOL 3350 Inactive METOPROLOL TARTRATE 25 MG ORAL TABS 1/2 tablet twice daily for heart rate and blood pressure METOPROLOL TARTRATE 25 MG ORAL TABS 283266 METOPROLOL TARTRATE Inactive VALIUM 5 MG TAB Take 1-2 tablets daily VALIUM 5 MG TAB 896101 DIAZEPAM Inactive FLAGYL 500 MG TAB 1 tablet by mouth bid FLAGYL 500 MG TAB 487880 METRONIDAZOLE Inactive DICLOFENAC POTASSIUM TABS Take 1 tablet twice a day (pt. is not sure of the dose.) DICLOFENAC POTASSIUM TABS DICLOFENAC POTASSIUM TABS Inactive ZITHROMAX Z-EARNEST 250 MG TABS 2 today and then 1 daily for 4 days ZITHROMAX Z-EARNEST 250 MG TABS 6368331 AZITHROMYCIN Inactive PREDNISONE 20 MG TABS 2 daily for 5 days then 1 daily for 5 days PREDNISONE 20 MG TABS 723592 PREDNISONE Inactive PROAIR HFA 108 (90 BASE) MCG/ACT AERS 2 puffs four times a day as needed 2015 PROAIR HFA 108 (90 BASE) MCG/ACT AERS ALBUTEROL SULFATE Inactive HYDROCODONE-ACETAMINOPHEN 5-325 MG TABS 1 to 2 four times a day as needed for pain use until can be seen by specialist HYDROCODONE- ACETAMINOPHEN 5-325 MG TABS 782831 HYDROCODONE-ACETAMINOPHEN Inactive TESSALON PERLES 100 MG CAP 1 to 2 tablets by mouth 3 times daily as needed for cough TESSALON PERLES 100 MG CAP 902240 BENZONATATE Inactive CHANTIX STARTING MONTH EARNEST 0.5 [...] Pain 2015 DICLOFENAC SODIUM 50 MG TBEC 674973 DICLOFENAC SODIUM Inactive TOPAMAX 50 MG ORAL TABS 1 tab twice daily TOPAMAX 50 MG ORAL TABS 618336 TOPIRAMATE Inactive VIIBRYD 10 MG ORAL TABS Take 1 tablet once a day VIIBRYD 10 MG ORAL TABS VILAZODONE HCL Inactive LEVOFLOXACIN 500 MG ORAL TABS po daily LEVOFLOXACIN 500 MG ORAL TABS 629205 LEVOFLOXACIN Inactive METHYLPREDNISOLONE 4 MG ORAL TABS po daily METHYLPREDNISOLONE 4 MG ORAL TABS 458809 METHYLPREDNISOLONE Inactive OXYCODONE HCL ER 10 MG ORAL T12A 1/2 tab by mouth every 4 hours prn OXYCODONE HCL ER 10 MG ORAL T12A OXYCODONE HCL Inactive FLAGYL 500 MG TAB 1 tablet by mouth bid FLAGYL 500 MG TAB 265294 METRONIDAZOLE Inactive MONISTAT 7 COMBO PACK WOODROW 100 & 2 MG-% (9GM) VAG KIT 1 applicatorful per vagina q pm x 7 MONISTAT 7 COMBO PACK WOODROW 100 & 2 MG-% (9GM) VAG KIT MICONAZOLE NITRATE Inactive BACTRIM DS 800-160 MG TABS 1 twice a day BACTRIM DS 800-160 MG TABS 282528 SULFAMETHOXAZOLE-TRIMETHOPRIM Inactive TRAMADOL HCL 50 MG TABS 1/2-1 tab TID PRN TRAMADOL HCL 50 MG TABS 733333 TRAMADOL HCL Inactive ABILIFY MAINTENA 400 MG IM SUSR 400mg injection every 26 days ABILIFY MAINTENA 400 MG IM SUSR ARIPIPRAZOLE Inactive KLONOPIN 1 MG ORAL TABS 1 tab po TID KLONOPIN 1 MG ORAL TABS 084693 CLONAZEPAM Inactive ADVAIR DISKUS 250-50 MCG/DOSE INH AEPB 1 puff twice a day for asthma ADVAIR DISKUS 250-50 MCG/DOSE INH AEPB FLUTICASONE- SALMETEROL Inactive BENADRYL 25 MG CAP 4 po at bedtime for insomnia BENADRYL 25 MG CAP DIPHENHYDRAMINE HCL Inactive CEFDINIR 300 MG CAPS by mouth twice a day CEFDINIR 300 MG CAPS 892132 CEFDINIR Inactive PREDNISONE 20 MG TAB 2 tabs daily for 3 days, 1 tab daily for 3 days, 1/2 tab daily for 2 days PREDNISONE 20 MG TAB 307373 PREDNISONE Inactive BACTRIM DS 800-160 MG TABS 1 po BID x 7 days BACTRIM DS 800-160 MG TABS 19820521 SULFAMETHOXAZOLE-TRIMETHOPRIM Inactive DIFLUCAN 150 MG TABS 1 pill every other day x 2 doses DIFLUCAN 150 MG TABS 699908 FLUCONAZOLE Inactive BACTRIM DS 800-160 MG TABS 1 pill by mouth twice daily BACTRIM DS 800-160 MG TABS 19820521 SULFAMETHOXAZOLE-TRIMETHOPRIM Inactive KEFLEX 500 MG CAP 1 po TID x 10 days KEFLEX 500 MG CAP 700855 CEPHALEXIN Inactive Advance Directives Directive Description Start [...] 369 10^3/MM^3 10*3/mm3 142-424 Lab Report: Chlamydia/GC [id number] - Lab chlamydia DNA probe NOT DETECTED NOT DETECTED Lab Report: Chlamydia/GC [id number] - Microbiology Neisseria gonorrhoeae DNA probe NOT DETECTED NOT DETECTED Lab Report: Comp. Metabolic Panel - Chemistry sodium, serum 142 mmol/L 043-242 1800/06/08 carbon dioxide, venous blood 27.6 mmol/L 21.0-32.0 potassium, serum 4.0 mmol/L 3.5-5.2 chloride, serum 105 mmol/L 98-107 blood glucose 95 mg/dL 65-110 urea nitrogen, blood 8 mg/dL 7-18 creatinine, serum 0.75 mg/dL 0.55-1.30 alanine aminotransferase (SGPT), serum 49 U/L 12-78 aspartate aminotransferase (SGOT), serum 28 U/L 15-37 calcium, serum 9.4 mg/dL 8.5-10.1 bilirubin, serum, total 0.30 mg/dL 0.00-1.00 sodium, serum 140 mmol/L 992-731 3004/08/08 carbon dioxide, venous blood 33.7 mmol/L 21.0-32.0 [...] mg/dL Encounters Code Encounter Date Provider Facility CPT-99659 Level 3 Est. 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 Patient 15:07:06 INSPECTOR [employer]SEMBL[employer] Neeraj Collins MD [facility] CPT-00535 Level 4 Est. Patient 14:45:00 [employer]PECTOR [employer] Ahmet Carbajal MD [facility] CPT-68692 Level 3 Est. Patient 13:59:59 CDT Luigi Martínez APRN [facility] CPT-67833 Level 3 Est. Patient 18:18:53 CDT Neeraj Collins MD [facility] CPT-24964 Level 3 Est. Patient 15:50:44 CDT Vishal Hui MD [facility] CPT-47892 Level 3 Est. Patient 11:36:17 CDT Ahmet Carbajal MD [facility] CPT-19124 Level 3 Est. Patient 13:29:16 CDT Vishal Hui MD [facility] CPT-22706 Level 3 Est. Patient 14:27:52 CDT Neeraj Collins MD [facility] CPT-87628 Level 3 Est. Patient 08:56:03 CDT Luigi Martínez [facility] CPT-01412 Level 4 Est. Patient 12:11:48 CDT Fabiola Johnson [facility] CPT-26417 Level 3 New Patient 16:53:37 CDT Albert Caldera MD [facility] CPT-58299 Level 3 Est. Patient 11:25:49 CDT Renzo Thornton DO [facility] CPT-76936 Level 3 Est. Patient 15:22:01 CDT Ahmet Carbajal MD [facility] CPT-57486 Level 4 Est. Patient 09:00:51 [employer]OR [employer] Vishal Hui MD [facility] CPT-25160 Level 3 Est. 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 Patient 08:41:09 INSPECTOR [employer]BLIES Vishal Hui MD [facility] CPT-02535 Level 4 Est. Patient 10:19:35 INSPECTOR [employer]BL[employer] Vishal Hui MD [facility] CPT-95152 Level 3 Est. Patient 13:35:45 CDT Vishal Hui MD [facility] CPT-98606 Level 4 Est. Patient 10:08:37 CDT Vishal Hui MD [facility] CPT-12090 Level 3 Est. Patient 11:22:10 CDT Vishal Hui MD [facility] CPT-83677 Level 3 Est. Patient 11:03:32 CDT Sahara Rodriguez MD [facility]-46528 Level 3 Est. Patient 09:41:35 CDT Vishal Hui MD [facility] CPT-45836 Level 3 Est. Patient 12:00:41 CDT Neeraj Collins MD [facility]-60258 Level 3 Est. Patient 09:16:24 CDT Vishal Hui MD [facility]-25526 Level 4 Est. Patient 13:59:09 CDT Neeraj Collins MD [facility] CPT-83438 Level 3 Est. Patient 15:19:43 CDT Renzo Thornton DO [facility] CPT-70165 Level 3 Est. Patient 18:10:26 CDT Sahara Rodriguez MD [facility] CPT-97867 Level 3 Est. Patient 14:49:50 CDT Vishal Hui MD [facility] CPT-69389 Level 4 Est. Patient 18:41:46 CDT Neeraj Collins MD [facility] CPT-74482 Level 4 Est. 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-28031 Level 3 Est. 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 Patient 15:26:33 INSPECTOR [employer] Sahara Rodriguez MD [facility]-46326 Level 3 Est. 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 Patient 09:19:27 CDT Vishal Hui MD [facility] CPT-99396 Level 3 Est. Patient 15:53:00 CDT Rezno Thornton [facility] CPT-13937 Level 3 Est. Patient 15:50:30 CDT Renzo Thornton [facility] CPT-04022 Level 3 Est. Patient 16:55:24 CDT Vishal Hui MD [facility] Procedures Code Procedure Name Date Entry Date Standard Description [id number] [facility] Annual Wellness Exam 09:30:58 [employer] CPT-70460 TSH - LAB USE ONLY 08:50:26 [employer] CPT-03517 CBC - LAB USE ONLY 08:50:26 [employer] CPT-42780 Venipuncture Draw Fee 08:50:26 [employer] CPT-92429 Abx/Therapy Injection 17:34:30 [employer] CPT-86378 Nexplanon Removal with Reinsertion 14:09:32 CDT CPT-J7307 Nexplanon (Implant) 14:09:32 CDT CPT-OV Office Visit 14:09:32 CDT CPT-88339 UA w micro - LAB USE ONLY 16:21:13 CDT CPT-42350 Wet Mount - LAB USE ONLY 16:21:13 CDT CPT-39532 First Vx - Ix admin for Medicare patients 14:37:47 CDT CPT-37467 Fluzone Preservative Free Intramuscular Suspension 14:37 :47 CDT CPT-76733 Abx/Therapy Injection 13:54:22 CDT CPT-76011 Abx/Therapy Injection 08:47:09 CDT CPT-85382 Abx/Therapy Injection 13:29:56 CDT CPT-18556 Abx/Therapy Injection 08:36:16 CDT CPT-05780 Wet Mount - LAB USE ONLY 17:44:58 CDT CPT-74097 UA w micro - LAB USE ONLY 17:44:58 CDT CPT-29308 CMP - LAB USE ONLY 17:44:58 CDT CPT-51359 Venipuncture Draw Fee 17:44:58 CDT CPT-89721 Cervical Min 4V - XRAY USE ONLY 09:01:40 CDT CPT-51581 Chest 2V Frontal and Lat - XRAY USE ONLY 11:06:31 CDT CPT-13213 EKG Trac and Interp - XRAY USE ONLY 11:31:43 CDT 08/26 CPT-J3420 Vitamin B12 1000mcg (Cyanocobalamin) 08:10:26 [employer] 04/12 CPT-16945 Abx/Therapy Injection 08:10:26 [employer] CPT-G0438 Initial Annual Wellness Exam 19:01:01 [employer] CPT-J3420 Vitamin B12 1000mcg (Cyanocobalamin) 16:57:46 CDT 08/14 CPT-34098 Recombivax HB Injection Suspension 5 MCG/0.5ML 08:37:50 [employer] CPT-94315 Immunization Single Admin 08:37:50 [employer] CPT-J3420 Vitamin B12 1000mcg (Cyanocobalamin) 08:32:16 [employer] 03/11 CPT-95963 Abx/Therapy Injection 08:32:16 [employer] CPT-72881 Chest 2V Frontal and Lat 11:46:38 [employer] CPT-74676 Venipuncture Draw Fee 09:12:45 [employer] CPT-J3420 Vitamin B12 1000mcg (Cyanocobalamin) 08:50:15 [employer] 02/08 CPT-92813 Abx/Therapy Injection 08:50:15 [employer] CPT-Cryo Cryotherapy 10:19:35 [employer] CPT-000 Give Appropriate Flu Vaccine 09:22:16 CDT CPT-J3420 Vitamin B12 1000mcg (Cyanocobalamin) 19:08:57 CDT 01/11 CPT-50751 Abx/Therapy Injection 19:08:57 CDT CPT-J3420 Vitamin B12 1000mcg (Cyanocobalamin) 08:19:08 CDT 12/11 CPT-33270 Abx/Therapy Injection 08:19:08 CDT CPT-J3420 Vitamin B12 1000mcg (Cyanocobalamin) 14:48:00 CDT 11/09 CPT-52685 Abx/Therapy Injection 14:47:59 CDT CPT-J3420 Vitamin B12 1000mcg (Cyanocobalamin) 08:34:04 CDT 10/09 CPT-39987 Abx/Therapy Injection 08:34:04 CDT CPT-J3420 Vitamin B12 1000mcg (Cyanocobalamin) 09:18:52 CDT 09/11 CPT-89933 Abx/Therapy Injection 09:18:52 CDT CPT-J3420 Vitamin B12 1000mcg (Cyanocobalamin) 08:35:44 CDT 09/04 CPT-50403 Abx/Therapy Injection 08:35:44 CDT CPT-62274 Immunization Single Admin 11:07:16 CDT CPT-66591 Hepatitis B adult IM 11:07:16 CDT CPT-J3420 Vitamin B12 1000mcg (Cyanocobalamin) 11:00:49 CDT 08/28 CPT-J1040 Depo Medrol 80 mg (Methyl Prednisolone Acetate) 11:00: 49 CDT CPT-56539 Abx/Therapy Injection 11:00:49 CDT CPT-J1040 Depo Medrol 80 mg (Methyl Prednisolone Acetate) 09:16: 23 CDT CPT-J3420 Vitamin B12 1000mcg (Cyanocobalamin) 08:27:05 CDT 08/20 CPT-05631 Abx/Therapy Injection 08:27:05 CDT CPT-51830 Recombivax HB Injection Suspension 5 MCG/0.5ML 10:00:41 CDT CPT-14008 Administration single or combination vaccine inc oral 10 :00:41 CDT CPT-53963 Sono transvag pelvis non OB uterus ovaries cervix 16:36: 57 CDT CPT-09144 LS spine comp w obliq 09:50:55 [employer] CPT-85076 Abd compl w upright 09:50:55 [employer] CPT-J1100 Decadron 4mg (Dexamethasone) 15:51:24 [employer] CPT-J1030 Depo Medrol 40 mg (Methyl Prednisolone Acetate) 15:51: 24 [employer] CPT-52727 Abx/Therapy Injection 15:51:24 [employer] CPT-J1100 Decadron 4mg (Dexamethasone) 15:26:33 [employer] CPT-J1030 Depo Medrol 40 mg (Methyl Prednisolone Acetate) 15:26: 33 [employer] CPT-45735 Sono retroperitoneal complete kidneys and bladder 17:15: 30 CDT CPT-74470 Abd compl w upright 16:09:25 CDT CPT-J1100 Decadron 8mg (Dexamethasone) 17:07:57 CDT CPT-19598 Abx/Therapy Injection 17:07:57 CDT CPT-J1100 Decadron 8mg (Dexamethasone) 16:55:24 CDT CPT-28989 Chest 2V Frontal and Lat 16:32:44 CDT
--- OUTSIDE RECORDS SUMMARY | 2016-11-04 19:14 | XMS REPORT | Clinical Summary ---
Author Author Admin, E Organization [facility] [employer] Address Unknown Phone Unavailable Allergies, Adverse Reactions, [...] not elsewhere classified Depression/anxiety 300.4 Active Vishal uHi MD Dysthymic disorder Hypertension 401.9 Active Vishal [...] facility Sinus tachycardia 427.89 Resolved Suzan Rajeev CURAM DEVELOPER Other specified cardiac dysrhythmias Schizoaffective disorder 295.70 [...] MD Postconcussion syndrome Nevus, atypical 216.9 Resolved Visahl Hui MD Benign neoplasm of skin, site [...] Active Ahmet Carbajal MD Generalized anxiety disorder Rn Occupational well 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 FLUTICASONE PROPIONATE HFA 89403977253 Active Renzo Thornton DO Active TROPICAMIDE 0.5 % OPHTH SOLN 1 drop PRN eye spasms TROPICAMIDE 63315329535 Active Samantha Stephan RMA Active RISPERDAL 4 MG ORAL TABS 1 tab at bedtime RISPERIDONE 92549285110 Active Samantha Stephan RMA Active LEVAQUIN 500 MG TABS 1 daily for infection LEVOFLOXACIN 59666767373 Active Suzan Boo APRN Active TESSALON PERLES 100 MG CAPS 1 three times a day as needed for cough BENZONATATE 41774243607 Active Suzan Boo APRN Active ZOFRAN 4 MG TABS 1 po q6hr PRN Nausea ONDANSETRON HCL No Longer Active Suzan Boo APRN Active FLUTICASONE PROPIONATE 50 MCG/ACT SUSP 2 sprays each nostril daily before bed. FLUTICASONE PROPIONATE 63243004577 No Longer Active Suzan Boo APRN Active ASPIRIN 325 MG ORAL TABS 1 tab q.d ASPIRIN 64795078989 No Longer Active Suzan Boo APRN Active HALOPERIDOL 10 MG ORAL TABS 1 tab q.d HALOPERIDOL 06028973314 No Longer Active Suzan Boo APRN Active GUAIFENESIN-CODEINE 100-10 MG/5ML SYRP 5ml every 4 to 6 hours as needed for cough GUAIFENESIN-CODEINE 28605173398 No Longer Active Suzan Boo APRN Active ZITHROMAX Z-EARNEST 250 MG TABS 2 today and then 1 daily for 4 days AZITHROMYCIN 96941650132 No Longer Active Suzan Boo APRN Active PREDNISONE 10 MG TABS 2 daily for 5 days then 1 daily for 5 days PREDNISONE 15707150718 Active Suzan Boo APRN Active CLONAZEPAM 1 MG ORAL TABS 1 twice a day and an additional 1 tablet every other day as needed for pseudoseizures or anxiety CLONAZEPAM 37667213527 Active Ahmet Carbajal MD Active HYDROCODONE-ACETAMINOPHEN 5-325 MG ORAL TABS 1 tab two times a day HYDROCODONE-ACETAMINOPHEN 11510318077 No Longer Active Ahmet Carbajal MD Active LAMICTAL 100 MG ORAL TABS 1 tab 2 times qd. LAMOTRIGINE 60575721859 Active Ahmet Carbajal MD Active PREDNISONE 20 MG TABS 2 daily for 5 days then 1 daily for 5 days PREDNISONE 35678961812 No Longer Active Ahmet Carbajal MD Active FLUTICASONE PROPIONATE 50 MCG/ACT SUSP 1 to 2 sprays each nostril daily for allergies FLUTICASONE PROPIONATE 74042423102 Active Tila Valenzuela Active BENADRYL 25 MG CAP 4 po at bedtime for insomnia DIPHENHYDRAMINE HCL 91859211544 No Longer Active Ahmet Carbajal MD Active ADVAIR DISKUS 250-50 MCG/DOSE INH AEPB 1 puff twice a day for asthma FLUTICASONE-SALMETEROL 08337092469 No Longer Active Ahmet Carbajal MD Active KLONOPIN 1 MG ORAL TABS 1 tab po TID CLONAZEPAM 06525262533 No Longer Active Ahmet Carbajal MD Active ABILIFY MAINTENA 400 MG IM SUSR 400mg injection every 26 days ARIPIPRAZOLE 11905604241 No Longer Active Ahmet Carbajal MD Active TRAMADOL HCL 50 MG TABS 1/2-1 tab TID PRN TRAMADOL HCL 15780621132 No Longer Active Ahmet Carbajal MD Active BACTRIM DS 800-160 MG TABS 1 twice a day SULFAMETHOXAZOLE- TRIMETHOPRIM 17384921811 No Longer Active Ahmet Carbajal MD Active PROAIR HFA 108 (90 BASE) MCG/ACT AERS 2 puffs four times a day as needed 2015 ALBUTEROL SULFATE 12455961343 Active Ahmet Carbajal MD Active EQ NICOTINE 21 MG/24HR TRANS PT24 Apply daily to stop smoking NICOTINE 03093324889 Active Ahmet Carbajal MD Active MONISTAT 7 COMBO PACK WOODROW 100 & 2 MG-% (9GM) VAG KIT 1 applicatorful per vagina q pm x 7 MICONAZOLE NITRATE 99869687793 No Longer Active Ahmet Carbajal MD Active FLAGYL 500 MG TAB 1 tablet by mouth bid METRONIDAZOLE 94291264383 No Longer Active Ahmet Carbajal MD Active OXYCODONE HCL ER 10 MG ORAL T12A 1/2 tab by mouth every 4 hours prn OXYCODONE HCL 46214527887 No Longer Active Ahmet Carbajal MD Active METHYLPREDNISOLONE 4 MG ORAL TABS po daily METHYLPREDNISOLONE 02940936104 No Longer Active Ahmet Carbajal MD Active LEVOFLOXACIN 500 MG ORAL TABS po daily LEVOFLOXACIN 45131146977 No Longer Active Ahmet Carbajal MD Active VIIBRYD 10 MG ORAL TABS Take 1 tablet once a day VILAZODONE HCL 64618412453 No Longer Active Ahmet Carbajal MD Active TOPAMAX 50 MG ORAL TABS 1 tab twice daily TOPIRAMATE 28396223333 No Longer Active Ahmet Carbajal MD Active DICLOFENAC SODIUM 50 MG TBEC 1 tablet by mouth four times daily PRN Pain 2015 DICLOFENAC SODIUM 00150668056 No Longer Active Ahmet Carbajal MD Active ADZENYS XR-ODT 6.3 MG ORAL TBED 1 tab po daily for ADHD AMPHETAMINE 32144668912 No Longer Active Ahmet Carbajal MD Active CHANTIX 1 MG TABS 1 twice a day to help quit smoking VARENICLINE TARTRATE 10833204660 No Longer Active Dipika Burgos MD Active CHANTIX STARTING MONTH EARNEST 0.5 MG X 11 & 1 MG X 42 TABS take as directed 2015 VARENICLINE TARTRATE 65296026665 No Longer Active Dipika Burgos MD Active TESSALON PERLES 100 MG CAP 1 to 2 tablets by mouth 3 times daily as needed for cough BENZONATATE 76080725801 No Longer Active Luigi Martínez APRN Active IMITREX 50 MG ORAL TABS 0.5 po x 1 PRN Headache. May repeat dose x 1 in 2 hours if needed SUMATRIPTAN SUCCINATE 48617092016 Active Ahmet Carbajal MD Active HYDROCODONE-ACETAMINOPHEN 5-325 MG TABS 1 to 2 four times a day as needed for pain use until can be seen by specialist HYDROCODONE- ACETAMINOPHEN 94570868122 No Longer Active Vishal Hui MD Active PROAIR HFA 108 (90 BASE) MCG/ACT AERS 2 puffs four times a day as needed 2015 ALBUTEROL SULFATE 47246978729 No Longer Active Vishal Hui MD Active PREDNISONE 20 MG TABS 2 daily for 5 days then 1 daily for 5 days PREDNISONE 04011177788 No Longer Active Vishal Hui MD Active ZITHROMAX Z-EARNEST 250 MG TABS 2 today and then 1 daily for 4 days AZITHROMYCIN 71498033605 No Longer Active Vishal Hui MD Active DICLOFENAC POTASSIUM TABS Take 1 tablet twice a day (pt. is not sure of the dose.) DICLOFENAC POTASSIUM TABS 96396752713 No Longer Active Vishal Hui MD Active VERAPAMIL HCL ER 120 MG ORAL CR-TABS Take 1 tablet by mouth twice a day. VERAPAMIL HCL 15180203513 Active Vishal Hui MD Active FLAGYL 500 MG TAB 1 tablet by mouth bid METRONIDAZOLE 30273609619 No Longer Active Vishal Hui MD Active VALIUM 5 MG TAB Take 1-2 tablets daily DIAZEPAM 08616595680 No Longer Active Fabiola Johnson APRN Active METOPROLOL TARTRATE 25 MG ORAL TABS 1/2 tablet twice daily for heart rate and blood pressure METOPROLOL TARTRATE 46849246404 No Longer Active Fabiola Johnson APRN Active MIRALAX ORAL POWD 17GMS DAILY IN WATER POLYETHYLENE GLYCOL 3350 35194655803 Active TAMARA Casey Active MIRALAX PACK 1 po qd PRN Constipation POLYETHYLENE GLYCOL 3350 46329384509 No Longer Active Ahmet Carbajal MD Active MINIPRESS 2 MG CAPS 4 cap po at night PRAZOSIN HCL 06750333874 No Longer Active Ahmet Carbajal MD Active PIROXICAM 20 MG CAPS 1 cap po qd PRN Pain PIROXICAM 38694375391 No Longer Active Ahmet Carbajal MD Active TRAMADOL HCL 50 MG TABS 1-2 po TID PRN Pain TRAMADOL HCL 82689912568 No Longer Active Ahmet Carbajal MD Active METOPROLOL TARTRATE 50 MG TAB 1 po bid METOPROLOL TARTRATE 43623109926 No Longer Active Ahmet Carbajal MD Active ABILIFY 15 MG ORAL TABS 1 tab daily ARIPIPRAZOLE 43103443559 No Longer Active Ahmet Carbajal MD Active PROZAC 20 MG ORAL CAPS 1 tab daily FLUOXETINE HCL 55297907037 No Longer Active Ahmet Carbajal MD Active AMBIEN 5 MG ORAL TABS 1 tab at bedtime ZOLPIDEM TARTRATE 08984345399 No Longer Active Ahmet Carbajal MD Active PREDNISONE 20 MG TAB 2 tabs daily for 4 days, 1 tab daily for 4 days, 1/2 tab daily for 4 days PREDNISONE 16776876951 No Longer Active Ahmet Carbajal MD Active KEFLEX 500 MG CAP 1 po TID x 10 days CEPHALEXIN 97029161825 No Longer Active Vishal Hui MD Active SAPHRIS 5 MG SUBL 1 po bid ASENAPINE MALEATE 98140718265 No Longer Active Jillina Mauricio CURAM DEVELOPER Active LATUDA 80 MG TABS Take one by mouth daily LURASIDONE HCL 52524589660 No Longer Active Jillina Frazell CURAM DEVELOPER Active AMLODIPINE BESYLATE 5 MG TABS 1 tablet by mouth daily AMLODIPINE BESYLATE 46811032251 No Longer Active Jillina Fradwightl CURAM DEVELOPER Active AMITRIPTYLINE HCL 100 MG TAB one at hs AMITRIPTYLINE HCL 75967603970 No Longer Active Vishal Hui MD Active TRAZODONE HCL 100 MG TAB take 1 at bedtime TRAZODONE HCL 55744104766 No Longer Active Vishal Hui MD Active VYVANSE 40 MG CAPS 1 daily, LISDEXAMFETAMINE DIMESYLATE 25506409327 No Longer Active Vishal Hui MD Active IBUPROFEN 600 MG TAB 1 po TID PRN IBUPROFEN 77266253771 No Longer Active Vishal Hui MD Active PROZAC 20 MG CAP Take one by mouth daily FLUOXETINE HCL 81761081354 No Longer Active Vishal Hui MD Active BACTRIM DS 800-160 MG TABS 1 pill by mouth twice daily SULFAMETHOXAZOLE-TRIMETHOPRIM 84151710369 No Longer Active Sahara Rodriguez MD PhD Active DIFLUCAN 150 MG TAB 1 tablet by mouth daily FLUCONAZOLE 56708134952 No Longer Active Vishal Hui MD Active TIZANIDINE HCL 4 MG TABS 1 po q6hr PRN Muscle Spasm/Back Pain TIZANIDINE HCL 60452691691 Active Vishal Hui MD Active CLINDAMYCIN HCL 150 MG CAPS 1 four times a day CLINDAMYCIN HCL 15231954441 No Longer Active Neeraj Collins MD Active KEFLEX 500 MG ORAL CAPS 1 cap QID by mouth CEPHALEXIN 10265756083 No Longer Active Neeraj Collins MD Active DIFLUCAN 150 MG TABS 1 pill every other day x 2 doses FLUCONAZOLE 08476087219 No Longer Active Sahara Rodriguez MD PhD Active MELATONIN 3 MG CAPS 2 po q hs MELATONIN 71177803520 No Longer Active Sahara Rodriguez MD PhD Active MULTIVITAMINS CAPS Take one by mouth daily MULTIPLE VITAMIN 62431284487 No Longer Active Sahara Rodriguez MD PhD Active BACTRIM DS 800-160 MG TAB 1 tab by mouth twice daily TRIMETHOPRIM-SULFAMETHOXAZOLE 60861714644 No Longer Active Sahara Rodriguez MD PhD Active [facility] PROBIOTIC ORAL CHEW 2 daily po PROBIOTIC PRODUCT 92725078297 No Longer Active Sahara Rodriguez MD PhD Active BACTRIM DS 800-160 MG TABS 1 po BID x 7 days SULFAMETHOXAZOLE-TRIMETHOPRIM 63591101625 No Longer Active Vishal Hui MD Active CHANTIX STARTING MONTH EARNEST 0.5 MG X 11 & 1 MG X 42 TABS 0.5mg daily for 3 days , then 0.5mg BID for 4 days, then 1mg BID VARENICLINE TARTRATE 36266291228 No Longer Active Lisette Scarrow, RMA Active VERAPAMIL HCL CR 120 MG TAB CR 1 po bid VERAPAMIL HCL 38735157934 No Longer Active Vishal Hui MD Active METOPROLOL SUCCINATE 50 MG TB24 1 tablet by mouth daily METOPROLOL SUCCINATE 94012344100 No Longer Active Vishal Hui MD Active SAPHRIS 10 MG SUBL 1 tab po bid ASENAPINE MALEATE 60278315686 No Longer Active Vishal Hui MD Active LISINOPRIL 20 MG TABS 1 tab po qd LISINOPRIL 18982950180 No Longer Active Vishal Hui MD Active LATUDA 20 MG TABS Take one by mouth daily LURASIDONE HCL 28354033987 No Longer Active Vishal Hui MD Active TRAZODONE HCL 50 MG TABS 1/2 tab po qd prn for anxiety TRAZODONE HCL 17969380553 No Longer Active Vishal Hui MD Active OMEPRAZOLE 20 MG TBEC 1 po q a.m. 30min prior to first food intake OMEPRAZOLE 28397411395 Active Bertha Kirby RMA Active RANITIDINE HCL 150 MG CAPS 1 twice a day RANITIDINE HCL 88380315075 Active Luigi Martínez APRN Active LINZESS 290 MCG CAPS Take one by mouth daily LINACLOTIDE 14541064981 No Longer Active Vishal Hui MD Active SAPHRIS 5 MG SUBL 1 tab po qd ASENAPINE MALEATE 52391747308 No Longer Active Vishal Hui MD Active ZALEPLON 10 MG CAPS 1 cap po every other night ZALEPLON 83386713202 No Longer Active Vishal Hui MD Active LYRICA 50 MG CAPS 1 tab po TID PREGABALIN 50602187164 No Longer Active Vishal Hui MD Active LORATADINE 10 MG TABS 1 tab po qd LORATADINE 73656586284 No Longer Active Vishal Hui MD Active VERAPAMIL HCL ER 180 MG CR-TABS 1 tab po bid VERAPAMIL HCL 05289940439 No Longer Active Vishal Hui MD Active MIRALAX POWD 1 capfull once daily POLYETHYLENE GLYCOL 3350 65170945386 No Longer Active Vishal Hui MD Active PREDNISONE 20 MG TABS 1 tab po qd PREDNISONE 78482340529 No Longer Active Renzo Thornton DO Active LEVOFLOXACIN 500 MG TABS 1 tab po qd LEVOFLOXACIN 29701089235 No Longer Active Renzo Thornton DO Active BUSPIRONE HCL 15 MG TABS 1 tab po TID BUSPIRONE HCL 07842963298 No Longer Active Renzo Thornton DO Active BENZTROPINE MESYLATE 1 MG TABS 1 tab po qd BENZTROPINE MESYLATE 18940493857 No Longer Active Renzo Thornton DO Active ATENOLOL 25 MG TABS 1 tab po qd ATENOLOL 46260331794 No Longer Active Renzo Thornton DO Active ESCITALOPRAM OXALATE 20 MG TABS 1 tab po qd ESCITALOPRAM OXALATE 72672607973 No Longer Active Renzo Thornton DO Active ADVAIR DISKUS 250-50 MCG/DOSE AEPB 1 puff BID FLUTICASONE-SALMETEROL 27517898733 No Longer Active Renzo Thornton DO Active PREDNISONE 20 MG TAB 2 tabs daily for 3 days, 1 tab daily for 3 days, 1/2 tab daily for 2 days PREDNISONE 76914066446 No Longer Active Vishal Hui MD Active CEFDINIR 300 MG CAPS by mouth twice a day CEFDINIR 05544327550 No Longer Active Vishal Hui MD Active LANSOPRAZOLE 30 MG CPDR 1 cap po qd LANSOPRAZOLE 11741164808 No Longer Active Vishal Hui MD Active BACLOFEN 20 MG TABS 1 tab po tid BACLOFEN 32598688502 No Longer Active Vishal Hui MD Active ADVAIR DISKUS 250-50 MCG/DOSE AEPB 1 puff BID ADVAIR DISKUS 250-50 MCG/DOSE AEPB FLUTICASONE-SALMETEROL Inactive ESCITALOPRAM OXALATE 20 MG TABS 1 tab po qd ESCITALOPRAM OXALATE 20 MG TABS 723555 ESCITALOPRAM OXALATE Inactive ATENOLOL 25 MG TABS 1 tab po qd ATENOLOL 25 MG TABS 241003 ATENOLOL Inactive BENZTROPINE MESYLATE 1 MG TABS 1 tab po qd BENZTROPINE MESYLATE 1 MG TABS 832939 BENZTROPINE MESYLATE Inactive BUSPIRONE HCL 15 MG TABS 1 tab po TID BUSPIRONE HCL 15 MG TABS 196617 BUSPIRONE HCL Inactive LEVOFLOXACIN 500 MG TABS 1 tab po qd LEVOFLOXACIN 500 MG TABS 338566 LEVOFLOXACIN Inactive PREDNISONE 20 MG TABS 1 tab po qd PREDNISONE 20 MG TABS 075389 PREDNISONE Inactive MIRALAX POWD 1 capfull once daily MIRALAX POWD 295510 POLYETHYLENE GLYCOL 3350 Inactive VERAPAMIL HCL ER 180 MG CR-TABS 1 tab po bid VERAPAMIL HCL ER 180 MG CR-TABS VERAPAMIL HCL Inactive LORATADINE 10 MG TABS 1 tab po qd LORATADINE 10 MG TABS 669739 LORATADINE Inactive LYRICA 50 MG CAPS 1 tab po TID LYRICA 50 MG CAPS PREGABALIN Inactive ZALEPLON 10 MG CAPS 1 cap po every other night ZALEPLON 10 MG CAPS 512410 ZALEPLON Inactive SAPHRIS 5 MG SUBL 1 tab po qd SAPHRIS 5 MG SUBL ASENAPINE MALEATE Inactive TRAZODONE HCL 50 MG TABS 1/2 tab po qd prn for anxiety TRAZODONE HCL 50 MG TABS 900562 TRAZODONE HCL Inactive LATUDA 20 MG TABS Take one by mouth daily LATUDA 20 MG TABS LURASIDONE HCL Inactive LISINOPRIL 20 MG TABS 1 tab po qd LISINOPRIL 20 MG TABS 516983 LISINOPRIL Inactive SAPHRIS 10 MG SUBL 1 [...] twice daily BACTRIM DS 800-160 MG TAB 946570 TRIMETHOPRIM-SULFAMETHOXAZOLE Inactive MULTIVITAMINS CAPS Take one by mouth daily MULTIVITAMINS CAPS MULTIPLE VITAMIN Inactive MELATONIN 3 MG CAPS 2 po q hs MELATONIN 3 MG CAPS 463050 MELATONIN Inactive KEFLEX 500 MG ORAL CAPS 1 cap QID by mouth KEFLEX 500 MG ORAL CAPS 381979 CEPHALEXIN Inactive CLINDAMYCIN HCL 150 MG CAPS 1 four times a day CLINDAMYCIN HCL 150 MG CAPS 369359 CLINDAMYCIN HCL Inactive DIFLUCAN 150 MG TAB 1 tablet by mouth daily DIFLUCAN 150 MG TAB 974861 FLUCONAZOLE Inactive PROZAC 20 MG CAP Take one by mouth daily PROZAC 20 MG CAP 458265 FLUOXETINE HCL Inactive IBUPROFEN 600 MG TAB 1 po TID PRN IBUPROFEN 600 MG TAB 015971 IBUPROFEN Inactive VYVANSE 40 MG CAPS 1 daily, VYVANSE 40 MG CAPS LISDEXAMFETAMINE DIMESYLATE Inactive TRAZODONE HCL 100 MG TAB take 1 at bedtime TRAZODONE HCL 100 MG TAB 267630 TRAZODONE HCL Inactive AMITRIPTYLINE HCL 100 MG TAB one at hs AMITRIPTYLINE HCL 100 MG TAB 064432 AMITRIPTYLINE HCL Inactive AMLODIPINE BESYLATE 5 MG TABS 1 tablet by mouth daily AMLODIPINE BESYLATE 5 MG TABS 884354 AMLODIPINE BESYLATE Inactive LATUDA 80 MG TABS Take one by mouth daily LATUDA 80 MG TABS LURASIDONE HCL Inactive SAPHRIS 5 MG SUBL 1 po bid SAPHRIS 5 MG SUBL ASENAPINE MALEATE Inactive PREDNISONE 20 MG TAB 2 tabs daily for 4 days, 1 tab daily for 4 days, 1/2 tab daily for 4 days PREDNISONE 20 MG TAB 626964 PREDNISONE Inactive AMBIEN 5 MG ORAL TABS 1 tab at bedtime AMBIEN 5 MG ORAL TABS 935292 ZOLPIDEM TARTRATE Inactive PROZAC 20 MG ORAL CAPS 1 tab daily PROZAC 20 MG ORAL CAPS 502583 FLUOXETINE HCL Inactive ABILIFY 15 MG ORAL TABS 1 tab daily ABILIFY 15 MG ORAL TABS 106606 ARIPIPRAZOLE Inactive METOPROLOL TARTRATE 50 MG TAB 1 po bid METOPROLOL TARTRATE 50 MG TAB 317744 METOPROLOL TARTRATE Inactive TRAMADOL HCL 50 MG TABS 1-2 po TID PRN Pain TRAMADOL HCL 50 MG TABS 959364 TRAMADOL HCL Inactive PIROXICAM 20 MG CAPS 1 cap po qd PRN Pain PIROXICAM 20 MG CAPS 392651 PIROXICAM Inactive MINIPRESS 2 MG CAPS 4 cap po at night MINIPRESS 2 MG CAPS 730508 PRAZOSIN HCL Inactive MIRALAX PACK 1 po qd PRN Constipation MIRALAX PACK 078533 POLYETHYLENE GLYCOL 3350 Inactive METOPROLOL TARTRATE 25 MG ORAL TABS 1/2 tablet twice daily for heart rate and blood pressure METOPROLOL TARTRATE 25 MG ORAL TABS 631075 METOPROLOL TARTRATE Inactive VALIUM 5 MG TAB Take 1-2 tablets daily VALIUM 5 MG TAB 840306 DIAZEPAM Inactive FLAGYL 500 MG TAB 1 tablet by mouth bid FLAGYL 500 MG TAB 512912 METRONIDAZOLE Inactive DICLOFENAC POTASSIUM TABS Take 1 tablet twice a day (pt. is not sure of the dose.) DICLOFENAC POTASSIUM TABS DICLOFENAC POTASSIUM TABS Inactive ZITHROMAX Z-EARNEST 250 MG TABS 2 today and then 1 daily for 4 days ZITHROMAX Z-EARNEST 250 MG TABS 8324839 AZITHROMYCIN Inactive PREDNISONE 20 MG TABS 2 daily for 5 days then 1 daily for 5 days PREDNISONE 20 MG TABS 713427 PREDNISONE Inactive PROAIR HFA 108 (90 BASE) MCG/ACT AERS 2 puffs four times a day as needed 2015 PROAIR HFA 108 (90 BASE) MCG/ACT AERS ALBUTEROL SULFATE Inactive HYDROCODONE-ACETAMINOPHEN 5-325 MG TABS 1 to 2 four times a day as needed for pain use until can be seen by specialist HYDROCODONE- ACETAMINOPHEN 5-325 MG TABS 088312 HYDROCODONE-ACETAMINOPHEN Inactive TESSALON PERLES 100 MG CAP 1 to 2 tablets by mouth 3 times daily as needed for cough TESSALON PERLES 100 MG CAP 016835 BENZONATATE Inactive CHANTIX STARTING MONTH EARNEST 0.5 [...] Pain 2015 DICLOFENAC SODIUM 50 MG TBEC 434576 DICLOFENAC SODIUM Inactive TOPAMAX 50 MG ORAL TABS 1 tab twice daily TOPAMAX 50 MG ORAL TABS 145854 TOPIRAMATE Inactive VIIBRYD 10 MG ORAL TABS Take 1 tablet once a day VIIBRYD 10 MG ORAL TABS VILAZODONE HCL Inactive LEVOFLOXACIN 500 MG ORAL TABS po daily LEVOFLOXACIN 500 MG ORAL TABS 958411 LEVOFLOXACIN Inactive METHYLPREDNISOLONE 4 MG ORAL TABS po daily METHYLPREDNISOLONE 4 MG ORAL TABS 105914 METHYLPREDNISOLONE Inactive OXYCODONE HCL ER 10 MG ORAL T12A 1/2 tab by mouth every 4 hours prn OXYCODONE HCL ER 10 MG ORAL T12A OXYCODONE HCL Inactive FLAGYL 500 MG TAB 1 tablet by mouth bid FLAGYL 500 MG TAB 167554 METRONIDAZOLE Inactive MONISTAT 7 COMBO PACK WOODROW 100 & 2 MG-% (9GM) VAG KIT 1 applicatorful per vagina q pm x 7 MONISTAT 7 COMBO PACK WOODROW 100 & 2 MG-% (9GM) VAG KIT MICONAZOLE NITRATE Inactive BACTRIM DS 800-160 MG TABS 1 twice a day BACTRIM DS 800-160 MG TABS 390996 SULFAMETHOXAZOLE-TRIMETHOPRIM Inactive TRAMADOL HCL 50 MG TABS 1/2-1 tab TID PRN TRAMADOL HCL 50 MG TABS 867157 TRAMADOL HCL Inactive ABILIFY MAINTENA 400 MG IM SUSR 400mg injection every 26 days ABILIFY MAINTENA 400 MG IM SUSR ARIPIPRAZOLE Inactive KLONOPIN 1 MG ORAL TABS 1 tab po TID KLONOPIN 1 MG ORAL TABS 954764 CLONAZEPAM Inactive ADVAIR DISKUS 250-50 MCG/DOSE INH AEPB 1 puff twice a day for asthma ADVAIR DISKUS 250-50 MCG/DOSE INH AEPB FLUTICASONE- SALMETEROL Inactive BENADRYL 25 MG CAP 4 po at bedtime for insomnia BENADRYL 25 MG CAP DIPHENHYDRAMINE HCL Inactive PREDNISONE 20 MG TABS 2 daily for 5 days then 1 daily for 5 days PREDNISONE 20 MG TABS 409383 PREDNISONE Inactive HYDROCODONE-ACETAMINOPHEN 5-325 MG ORAL TABS 1 tab two times a day HYDROCODONE-ACETAMINOPHEN 5-325 MG ORAL TABS 082922 HYDROCODONE-ACETAMINOPHEN Inactive ZITHROMAX Z-EARNEST 250 MG TABS 2 today and then 1 daily for 4 days ZITHROMAX Z-EARNEST 250 MG TABS 0578718 AZITHROMYCIN Inactive GUAIFENESIN-CODEINE 100-10 MG/5ML SYRP 5ml every 4 to 6 hours as needed for cough GUAIFENESIN-CODEINE 100-10 MG/5ML SYRP 056300 GUAIFENESIN-CODEINE Inactive HALOPERIDOL 10 MG ORAL TABS 1 tab q.d HALOPERIDOL 10 MG ORAL TABS 300311 HALOPERIDOL Inactive ASPIRIN 325 MG ORAL TABS 1 tab q.d ASPIRIN 325 MG ORAL TABS 614177 ASPIRIN Inactive FLUTICASONE PROPIONATE 50 MCG/ACT SUSP 2 sprays each nostril daily before bed. FLUTICASONE PROPIONATE 50 MCG/ACT SUSP 5937171 FLUTICASONE PROPIONATE Inactive ZOFRAN 4 MG TABS 1 po q6hr PRN Nausea ZOFRAN 4 MG TABS 376413 ONDANSETRON HCL Inactive CEFDINIR 300 MG CAPS by mouth twice a day CEFDINIR 300 MG CAPS 471602 CEFDINIR Inactive PREDNISONE 20 MG TAB 2 tabs daily for 3 days, 1 tab daily for 3 days, 1/2 tab daily for 2 days PREDNISONE 20 MG TAB 393151 PREDNISONE Inactive BACTRIM DS 800-160 MG TABS 1 po BID x 7 days BACTRIM DS 800-160 MG TABS 19820521 SULFAMETHOXAZOLE-TRIMETHOPRIM Inactive DIFLUCAN 150 MG TABS 1 pill every other day x 2 doses DIFLUCAN 150 MG TABS 970697 FLUCONAZOLE Inactive BACTRIM DS 800-160 MG TABS 1 pill by mouth twice daily BACTRIM DS 800-160 MG TABS 19820521 SULFAMETHOXAZOLE-TRIMETHOPRIM Inactive KEFLEX 500 MG CAP 1 po TID x 10 days KEFLEX 500 MG CAP 472664 CEPHALEXIN Inactive Advance Directives Directive Description Start [...] % 11.0-15.0 platelet count 443 THOUSAND/UL 10*3/mm3 238-802 2162/03/01 mean platelet volume 8.2 fL 7.5-12.5 Lab [...] 369 10^3/MM^3 10*3/mm3 142-424 Lab Report: Chlamydia/GC APTIMA/[id number] - Lab chlamydia DNA probe NOT DETECTED NOT DETECTED Lab Report: Chlamydia/GC APTIMA/[id number] - Microbiology Neisseria gonorrhoeae DNA probe NOT DETECTED NOT DETECTED Lab Report: Chlamydia/GC APTIMA/99659, Urinalysis, Complete, with Reflex ... - Lab chlamydia DNA probe NOT DETECTED NOT DETECTED Lab Report: Chlamydia/GC APTIMA/[id number], Urinalysis, Complete, with Reflex ... - Microbiology Neisseria gonorrhoeae DNA probe NOT DETECTED NOT DETECTED Lab Report: Chlamydia/GC APTIMA/53245, Urinalysis, Complete, with Reflex ... - Urinalysis microalbumin/total urine volume 2 mg/L Units converted. See lab report for original value. microalbumin/creatinine ratio, urine 9 MCG/MG CREAT mg/L <30 Lab Report: Comp. Metabolic Panel - Chemistry blood glucose 95 mg/dL 65-110 chloride, serum 105 mmol/L 98-107 potassium, serum 4.0 mmol/L 3.5-5.2 carbon dioxide, venous blood 27.6 mmol/L 21.0-32.0 sodium, serum 142 mmol/L 610-891 1248/08/08 sodium, serum 140 mmol/L 579-131 1103/08/08 creatinine, serum 0.88 mg/dL 0.55-1.30 alanine aminotransferase [...] mg/dL Encounters Code Encounter Date Provider Facility CPT-64725 Level 3 Est. Patient 11:04:38 CDT Renzo W Norberto [facility] CPT-01415 Level 3 Est. Patient 11:15:58 CAD SPECIALIST Renzo Thornton [facility] CPT-61598 Level 3 Est. Patient 15:28:23 CAD SPECIALIST Suzan Boo [facility] CPT-56194 Level 4 Est. Patient 10:20:54 CAD SPECIALIST Suzan Boo [facility] CPT-12168 Level 3 Est. Patient 11:47:37 CAD SPECIALIST Ahmet Carbajal MD [facility] CPT-18127 Level 3 Est. Patient 10:40:11 CAD SPECIALIST Ahmet Carbajal MD [facility] CPT-41750 Level 3 Est. Patient 15:07:06 CAD SPECIALIST Neeraj Collins MD [facility] CPT-74463 Level 4 Est. Patient 14:45:00 CAD SPECIALIST Ahmet Carbajal MD [facility] CPT-20875 Level 3 Est. Patient 13:59:59 CDT [facility] Mart[facility] [facility] CPT-64280 Level 3 Est. Patient 18:18:53 CDT Neeraj Collins MD [facility] CPT-20800 Level 3 Est. Patient 15:50:44 CDT Vishal Hui MD [facility] CPT-70944 Level 3 Est. Patient 11:36:17 CDT Ahmet Carbajal MD [facility] CPT-89127 Level 3 Est. Patient 13:29:16 CDT Vishal Hui MD [facility] CPT-93129 Level 3 Est. Patient 14:27:52 CDT Neeraj Collins MD [facility]-38134 Level 3 Est. Patient 08:56:03 CDT Luigi Martínez [facility] CPT-89522 Level 4 Est. Patient 12:11:48 CDT Fabiola Johnson [facility] CPT-05078 Level 3 New Patient 16:53:37 CDT Albert Caldera MD [facility] CPT-05466 Level 3 Est. Patient 11:25:49 CDT Renzo Thornton [facility] CPT-34203 Level 3 Est. Patient 15:22:01 CDT Ahmet Carbajal MD [facility] CPT-98191 Level 4 Est. 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 Patient 11:37:33 CAD SPECIALIST Vishal Hui MD [facility] CPT-27975 Level 3 Est. Patient 08:41:09 CAD SPECIALIST Vishal Hui MD [facility] CPT-47251 Level 4 Est. Patient 10:19:35 CAD SPECIALIST Vishal Hui MD [facility] CPT-99553 Level 3 Est. Patient 13:35:45 CDT Vishal Hui MD [facility] CPT-80945 Level 4 Est. Patient 10:08:37 CDT Vishal Hui MD [facility] CPT-12201 Level 3 Est. Patient 11:22:10 CDT Vishal Hui MD [facility] CPT-71286 Level 3 Est. Patient 11:03:32 CDT Sahara Rodriguez MD PhD [facility] CPT-64169 Level 3 Est. Patient 09:41:35 CDT Vishal Hui MD [facility] CPT-61279 Level 3 Est. Patient 12:00:41 CDT Neeraj Collins MD [facility] CPT-85361 Level 3 Est. Patient 09:16:24 CDT Vishal Hui MD [facility] CPT-91203 Level 4 Est. Patient 13:59:09 CDT Neeraj Collins MD [facility] CPT-13425 Level 3 Est. Patient 15:19:43 CDT Renzo W Norberto [facility] CPT-79651 Level 3 Est. Patient 18:10:26 CDT Sahara Rodriguez MD PhD [facility] CPT-40448 Level 3 Est. Patient 14:49:50 CDT Vishal Hui MD [facility] CPT-54788 Level 4 Est. Patient 18:41:46 CDT Neeraj Collins MD [facility] CPT-28358 Level 4 Est. 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 Patient 14:43:55 CAD SPECIALIST Vishal Hui MD [facility] CPT-60510 Level 3 Est. Patient 15:26:33 CAD SPECIALIST Sahara Rodriguez MD PhD [facility] CPT-46137 Level 3 Est. Patient 10:32:14 CAD SPECIALIST Vishal Hui MD [facility] CPT-43704 Level 3 Est. Patient 15:12:52 CAD SPECIALIST Vishal Hui MD [facility] CPT-95906 Level 4 Est. Patient 09:19:27 CDT Vishal Hui MD [facility] CPT-14421 Level 3 Est. Patient 15:53:00 CDT Renzo Thornton [facility] CPT-18653 Level 3 Est. Patient 15:50:30 CDT Renzo Thornton [facility] CPT-52275 Level 3 Est. Patient 16:55:24 CDT Vishal Hui MD [facility] Procedures Code Procedure Name Date Entry Date Standard Description CPT-33854 Smoking Cessation counseling 11:15:58 CAD SPECIALIST CPT-G0439 [facility] Annual Wellness Exam 09:30:58 CAD SPECIALIST CPT-02226 TSH - LAB USE ONLY 08:50:26 CAD SPECIALIST CPT-52664 CBC - LAB USE ONLY 08:50:26 CAD SPECIALIST CPT-82463 Venipuncture Draw Fee 08:50:26 CAD SPECIALIST CPT-98444 Abx/Therapy Injection 17:34:30 CAD SPECIALIST CPT-54845 Nexplanon Removal with Reinsertion 14:09:32 CDT CPT-J7307 Nexplanon (Implant) 14:09:32 CDT CPT-OV Office Visit 14:09:32 CDT CPT-43096 UA w micro - LAB USE ONLY 16:21:13 CDT CPT-57558 Wet Mount - LAB USE ONLY 16:21:13 CDT CPT-85088 First Vx - Ix admin for Medicare patients 14:37:47 CDT CPT-80787 Fluzone Preservative Free Intramuscular Suspension 14:37 :47 CDT CPT-45769 Abx/Therapy Injection 13:54:22 CDT CPT-00191 Abx/Therapy Injection 08:47:09 CDT CPT-62900 Abx/Therapy Injection 13:29:56 CDT CPT-24250 Abx/Therapy Injection 08:36:16 CDT CPT-06439 Wet Mount - LAB USE ONLY 17:44:58 CDT CPT-45694 UA w micro - LAB USE ONLY 17:44:58 CDT CPT-60194 CMP - LAB USE ONLY 17:44:58 CDT CPT-57780 Venipuncture Draw Fee 17:44:58 CDT CPT-33955 Cervical Min 4V - XRAY USE ONLY 09:01:40 CDT CPT-10171 Chest 2V Frontal and Lat - XRAY USE ONLY 11:06:31 CDT CPT-10631 EKG Trac and Interp - XRAY USE ONLY 11:31:43 CDT 08/26 CPT-J3420 Vitamin B12 1000mcg (Cyanocobalamin) 08:10:26 CAD SPECIALIST 04/12 CPT-69047 Abx/Therapy Injection 08:10:26 CAD SPECIALIST CPT-G0438 Initial Annual Wellness Exam 19:01:01 CAD SPECIALIST CPT-J3420 Vitamin B12 1000mcg (Cyanocobalamin) 16:57:46 CDT 08/14 CPT-63410 Recombivax HB Injection Suspension 5 MCG/0.5ML 08:37:50 CAD SPECIALIST CPT-09801 Immunization Single Admin 08:37:50 CAD SPECIALIST CPT-J3420 Vitamin B12 1000mcg (Cyanocobalamin) 08:32:16 CAD SPECIALIST 03/11 CPT-43299 Abx/Therapy Injection 08:32:16 CAD SPECIALIST CPT-51020 Chest 2V Frontal and Lat 11:46:38 CAD SPECIALIST CPT-48693 Venipuncture Draw Fee 09:12:45 CAD SPECIALIST CPT-J3420 Vitamin B12 1000mcg (Cyanocobalamin) 08:50:15 CAD SPECIALIST 02/08 CPT-32094 Abx/Therapy Injection 08:50:15 CAD SPECIALIST CPT-Cryo Cryotherapy 10:19:35 CAD SPECIALIST CPT-000 Give Appropriate Flu Vaccine 09:22:16 CDT CPT-J3420 Vitamin B12 1000mcg (Cyanocobalamin) 19:08:57 CDT 01/11 CPT-16745 Abx/Therapy Injection 19:08:57 CDT CPT-J3420 Vitamin B12 1000mcg (Cyanocobalamin) 08:19:08 CDT 12/11 CPT-64819 Abx/Therapy Injection 08:19:08 CDT CPT-J3420 Vitamin B12 1000mcg (Cyanocobalamin) 14:48:00 CDT 11/09 CPT-00940 Abx/Therapy Injection 14:47:59 CDT CPT-J3420 Vitamin B12 1000mcg (Cyanocobalamin) 08:34:04 CDT 10/09 CPT-79877 Abx/Therapy Injection 08:34:04 CDT CPT-J3420 Vitamin B12 1000mcg (Cyanocobalamin) 09:18:52 CDT 09/11 CPT-59399 Abx/Therapy Injection 09:18:52 CDT CPT-J3420 Vitamin B12 1000mcg (Cyanocobalamin) 08:35:44 CDT 09/04 CPT-28974 Abx/Therapy Injection 08:35:44 CDT CPT-00762 Immunization Single Admin 11:07:16 CDT CPT-14063 Hepatitis B adult IM 11:07:16 CDT CPT-J3420 Vitamin B12 1000mcg (Cyanocobalamin) 11:00:49 CDT 08/28 CPT-J1040 Depo Medrol 80 mg (Methyl Prednisolone Acetate) 11:00: 49 CDT CPT-31923 Abx/Therapy Injection 11:00:49 CDT CPT-J1040 Depo Medrol 80 mg (Methyl Prednisolone Acetate) 09:16: 23 CDT CPT-J3420 Vitamin B12 1000mcg (Cyanocobalamin) 08:27:05 CDT 08/20 CPT-72556 Abx/Therapy Injection 08:27:05 CDT CPT-74112 Recombivax HB Injection Suspension 5 MCG/0.5ML 10:00:41 CDT CPT-75801 Administration single or combination vaccine inc oral 10 :00:41 CDT CPT-55019 Sono transvag pelvis non OB uterus ovaries cervix 16:36: 57 CDT CPT-57825 LS spine comp w obliq 09:50:55 CAD SPECIALIST CPT-62414 Abd compl w upright 09:50:55 CAD SPECIALIST CPT-J1100 Decadron 4mg (Dexamethasone) 15:51:24 CAD SPECIALIST CPT-J1030 Depo Medrol 40 mg (Methyl Prednisolone Acetate) 15:51: 24 CAD SPECIALIST CPT-80620 Abx/Therapy Injection 15:51:24 CAD SPECIALIST CPT-J1100 Decadron 4mg (Dexamethasone) 15:26:33 CAD SPECIALIST CPT-J1030 Depo Medrol 40 mg (Methyl Prednisolone Acetate) 15:26: 33 CAD SPECIALIST CPT-36309 Sono retroperitoneal complete kidneys and bladder 17:15: 30 CDT CPT-52679 Abd compl w upright 16:09:25 CDT CPT-J1100 Decadron 8mg (Dexamethasone) 17:07:57 CDT CPT-05983 Abx/Therapy Injection 17:07:57 CDT CPT-J1100 Decadron 8mg (Dexamethasone) 16:55:24 CDT CPT-72798 Chest 2V Frontal and Lat 16:32:44 CDT
--- OUTSIDE RECORDS SUMMARY | 2016-11-04 19:15 | XMS REPORT | Clinical Summary ---
Author Author Admin, QIE Organization [employer] Address Unknown Phone Unavailable Allergies, Adverse Reactions, [...] specified Headache, atypical 784.0 Active Luigi Martínez KIER DRIER Headache Elevated blood glucose 790.29 Active Demetrius [...] tab every 6 hours prn SUMATRIPTAN SUCCINATE 08548168234 Active Jillina Frazell KIER DRIER Active AMBIEN 5 MG ORAL TABS 1 tab at bedtime ZOLPIDEM TARTRATE 80661092052 Active Jillina Frazell KIER DRIER Active PROZAC 20 MG ORAL CAPS 1 tab daily FLUOXETINE HCL 49319487663 Active Jillina Frazell KIER DRIER Active ABILIFY 15 MG ORAL TABS 1 tab daily ARIPIPRAZOLE 06356654080 Active Jillina Frazell KIER DRIER Active MINIPRESS 2 MG CAPS 4 cap po at night PRAZOSIN HCL 86364911726 Active Jillina Frazell KIER DRIER Active TOPAMAX 50 MG ORAL TABS 1 tab twice daily TOPIRAMATE 62496969641 Active Jillina Frazell KIER DRIER Active SAPHRIS 5 MG SUBL 1 po bid ASENAPINE MALEATE 46480450072 No Longer Active Jillina Frazell KIER DRIER Active LATUDA 80 MG TABS Take one by mouth daily LURASIDONE HCL 15494665625 No Longer Active Jillina Frazell KIER DRIER Active AMLODIPINE BESYLATE 5 MG TABS 1 tablet by mouth daily AMLODIPINE BESYLATE 34520309990 No Longer Active Pacollina Johnl KIER DRIER Active AMITRIPTYLINE HCL 100 MG TAB one at hs AMITRIPTYLINE HCL 65657945063 No Longer Active Vishal Hui MD Active TRAZODONE HCL 100 MG TAB take 1 at bedtime TRAZODONE HCL 67926675306 No Longer Active Vishal Hui MD Active VYVANSE 40 MG CAPS 1 daily, LISDEXAMFETAMINE DIMESYLATE 85831846101 No Longer Active Vishal Hui MD Active IBUPROFEN 600 MG TAB 1 po TID PRN IBUPROFEN 95788019586 No Longer Active Vishal Hui MD Active MIRALAX PACK 1 po qd PRN Constipation POLYETHYLENE GLYCOL 3350 11006668367 Active Vishal Hui MD Active PROZAC 20 MG CAP Take one by mouth daily FLUOXETINE HCL 03302807087 No Longer Active Vishal Hui MD Active ZOFRAN 4 MG TABS 1 po q6hr PRN Nausea ONDANSETRON HCL Active Vishal Hui MD Active BACTRIM DS 800-160 MG TABS 1 pill by mouth twice daily SULFAMETHOXAZOLE-TRIMETHOPRIM 55331859940 No Longer Active Sahara Rodriguez MD PhD Active DIFLUCAN 150 MG TAB 1 tablet by mouth daily FLUCONAZOLE 10610637444 No Longer Active Vishal Hui MD Active TIZANIDINE HCL 4 MG TABS 1 po q6hr PRN Muscle Spasm/Back Pain TIZANIDINE HCL 57873608194 Active Vishal Hui MD Active CLINDAMYCIN HCL 150 MG CAPS 1 four times a day CLINDAMYCIN HCL 79407976193 No Longer Active Neeraj Collins MD Active KEFLEX 500 MG ORAL CAPS 1 cap QID by mouth CEPHALEXIN 80514820896 No Longer Active Neeraj Collins MD Active DIFLUCAN 150 MG TABS 1 pill every other day x 2 doses FLUCONAZOLE 81226693635 No Longer Active Sahara Rodriguez MD PhD Active MELATONIN 3 MG CAPS 2 po q hs MELATONIN 05768947830 No Longer Active Sahara Rodriguez MD PhD Active MULTIVITAMINS CAPS Take one by mouth daily MULTIPLE VITAMIN 46995085632 No Longer Active Sahara Rodriguez MD PhD Active BACTRIM DS 800-160 MG TAB 1 tab by mouth twice daily TRIMETHOPRIM-SULFAMETHOXAZOLE 16324710632 No Longer Active Sahara Rodriguez MD PhD Active [facility] PROBIOTIC ORAL CHEW 2 daily po PROBIOTIC PRODUCT 42742754905 No Longer Active Sahara Rodriguez MD PhD Active BACTRIM DS 800-160 MG TABS 1 po BID x 7 days SULFAMETHOXAZOLE-TRIMETHOPRIM 27940072398 No Longer Active Vishal Hui MD Active CHANTIX STARTING MONTH EARNEST 0.5 MG X 11 & 1 MG X 42 TABS 0.5mg daily for 3 days , then 0.5mg BID for 4 days, then 1mg BID VARENICLINE TARTRATE 09099424065 No Longer Active TAMARA Gray Active METOPROLOL TARTRATE 50 MG TAB 1 po bid METOPROLOL TARTRATE 74712670910 Active Vishal Hui MD Active VERAPAMIL HCL CR 120 MG TAB CR 1 po bid VERAPAMIL HCL 38796169690 No Longer Active Vishal Hui MD Active METOPROLOL SUCCINATE 50 MG TB24 1 tablet by mouth daily METOPROLOL SUCCINATE 21068117896 No Longer Active Vishal Hui MD Active TRAMADOL HCL 50 MG TABS 1-2 po TID PRN Pain TRAMADOL HCL 88559505218 Active Vishal Hui MD Active SAPHRIS 10 MG SUBL 1 tab po bid ASENAPINE MALEATE 59505269977 No Longer Active Vishal Hui MD Active LISINOPRIL 20 MG TABS 1 tab po qd LISINOPRIL 53023374330 No Longer Active Vishal Hui MD Active BENADRYL 25 MG CAP 2 po tid prn anxiety DIPHENHYDRAMINE HCL 73804550624 Active Vishal Hui MD Active LATUDA 20 MG TABS Take one by mouth daily LURASIDONE HCL 45808726294 No Longer Active Vishal Hui MD Active TRAZODONE HCL 50 MG TABS 1/2 tab po qd prn for anxiety TRAZODONE HCL 21304943096 No Longer Active Vishal Hui MD Active PIROXICAM 20 MG CAPS 1 cap po qd PRN Pain PIROXICAM 59567209789 Active Vishal Hui MD Active OMEPRAZOLE 20 MG TBEC 1 po q a.m. 30min prior to first food intake OMEPRAZOLE 90556709240 Active Vishal Hui MD Active RANITIDINE HCL 150 MG CAPS 1 twice a day RANITIDINE HCL 42642990583 Active Vishal Hui MD Active LINZESS 290 MCG CAPS Take one by mouth daily LINACLOTIDE 83378289460 No Longer Active Vishal Hui MD Active SAPHRIS 5 MG SUBL 1 tab po qd ASENAPINE MALEATE 72362227407 No Longer Active Vishal Hui MD Active ZALEPLON 10 MG CAPS 1 cap po every other night ZALEPLON 93175019764 No Longer Active Vishal Hui MD Active LYRICA 50 MG CAPS 1 tab po TID PREGABALIN 13159044064 No Longer Active Vishal Hui MD Active LORATADINE 10 MG TABS 1 tab po qd LORATADINE 05056809432 No Longer Active iVshal Hui MD Active VERAPAMIL HCL ER 180 MG CR-TABS 1 tab po bid VERAPAMIL HCL 73743731752 No Longer Active Vishal Hui MD Active MIRALAX POWD 1 capfull once daily POLYETHYLENE GLYCOL 3350 55660653695 No Longer Active Vishal Hui MD Active PREDNISONE 20 MG TABS 1 tab po qd PREDNISONE 71695695662 No Longer Active Renzo Thornton DO Active LEVOFLOXACIN 500 MG TABS 1 tab po qd LEVOFLOXACIN 16378007623 No Longer Active Renzo Thornton DO Active BUSPIRONE HCL 15 MG TABS 1 tab po TID BUSPIRONE HCL 05750740318 No Longer Active Renzo Thornton DO Active BENZTROPINE MESYLATE 1 MG TABS 1 tab po qd BENZTROPINE MESYLATE 61157997041 No Longer Active Renzo Thornton DO Active ATENOLOL 25 MG TABS 1 tab po qd ATENOLOL 86178549310 No Longer Active Renzo Thornton DO Active ESCITALOPRAM OXALATE 20 MG TABS 1 tab po qd ESCITALOPRAM OXALATE 81510756090 No Longer Active Renzo Thornton DO Active ADVAIR DISKUS 250-50 MCG/DOSE AEPB 1 puff BID FLUTICASONE-SALMETEROL 18337349649 No Longer Active Renzo Thornton DO Active PREDNISONE 20 MG TAB 2 tabs daily for 3 days, 1 tab daily for 3 days, 1/2 tab daily for 2 days PREDNISONE 97565259435 No Longer Active Vishal Hui MD Active CEFDINIR 300 MG CAPS by mouth twice a day CEFDINIR 15913637715 No Longer Active Vishal Hui MD Active LANSOPRAZOLE 30 MG CPDR 1 cap po qd LANSOPRAZOLE 77198656734 No Longer Active Vishal Hui MD Active BACLOFEN 20 MG TABS 1 tab po tid BACLOFEN 78159930503 No Longer Active Vishal Hui MD Active ADVAIR DISKUS 250-50 MCG/DOSE AEPB 1 puff BID ADVAIR DISKUS 250-50 MCG/DOSE AEPB FLUTICASONE-SALMETEROL Inactive ESCITALOPRAM OXALATE 20 MG TABS 1 tab po qd ESCITALOPRAM OXALATE 20 MG TABS 561558 ESCITALOPRAM OXALATE Inactive ATENOLOL 25 MG TABS 1 tab po qd ATENOLOL 25 MG TABS 572674 ATENOLOL Inactive BENZTROPINE MESYLATE 1 MG TABS 1 tab po qd BENZTROPINE MESYLATE 1 MG TABS 890173 BENZTROPINE MESYLATE Inactive BUSPIRONE HCL 15 MG TABS 1 tab po TID BUSPIRONE HCL 15 MG TABS 875545 BUSPIRONE HCL Inactive LEVOFLOXACIN 500 MG TABS 1 tab po qd LEVOFLOXACIN 500 MG TABS 510398 LEVOFLOXACIN Inactive PREDNISONE 20 MG TABS 1 tab po qd PREDNISONE 20 MG TABS 633294 PREDNISONE Inactive MIRALAX POWD 1 capfull once daily MIRALAX POWD 067038 POLYETHYLENE GLYCOL 3350 Inactive VERAPAMIL HCL ER 180 MG CR-TABS 1 tab po bid VERAPAMIL HCL ER 180 MG CR-TABS VERAPAMIL HCL Inactive LORATADINE 10 MG TABS 1 tab po qd LORATADINE 10 MG TABS 631264 LORATADINE Inactive LYRICA 50 MG CAPS 1 tab po TID LYRICA 50 MG CAPS PREGABALIN Inactive ZALEPLON 10 MG CAPS 1 cap po every other night ZALEPLON 10 MG CAPS 523852 ZALEPLON Inactive SAPHRIS 5 MG SUBL 1 tab po qd SAPHRIS 5 MG SUBL ASENAPINE MALEATE Inactive TRAZODONE HCL 50 MG TABS 1/2 tab po qd prn for anxiety TRAZODONE HCL 50 MG TABS 588044 TRAZODONE HCL Inactive LATUDA 20 MG TABS Take one by mouth daily LATUDA 20 MG TABS LURASIDONE HCL Inactive LISINOPRIL 20 MG TABS 1 tab po qd LISINOPRIL 20 MG TABS 168446 LISINOPRIL Inactive SAPHRIS 10 MG SUBL 1 [...] twice daily BACTRIM DS 800-160 MG TAB 195097 TRIMETHOPRIM-SULFAMETHOXAZOLE Inactive MULTIVITAMINS CAPS Take one by mouth daily MULTIVITAMINS CAPS MULTIPLE VITAMIN Inactive MELATONIN 3 MG CAPS 2 po q hs MELATONIN 3 MG CAPS 19950526 MELATONIN Inactive KEFLEX 500 MG ORAL CAPS 1 cap QID by mouth KEFLEX 500 MG ORAL CAPS 096011 CEPHALEXIN Inactive CLINDAMYCIN HCL 150 MG CAPS 1 four times a day CLINDAMYCIN HCL 150 MG CAPS 736540 CLINDAMYCIN HCL Inactive DIFLUCAN 150 MG TAB 1 tablet by mouth daily DIFLUCAN 150 MG TAB 544232 FLUCONAZOLE Inactive PROZAC 20 MG CAP Take one by mouth daily PROZAC 20 MG CAP 771907 FLUOXETINE HCL Inactive IBUPROFEN 600 MG TAB 1 po TID PRN IBUPROFEN 600 MG TAB 589347 IBUPROFEN Inactive VYVANSE 40 MG CAPS 1 daily, VYVANSE 40 MG CAPS LISDEXAMFETAMINE DIMESYLATE Inactive TRAZODONE HCL 100 MG TAB take 1 at bedtime TRAZODONE HCL 100 MG TAB 185421 TRAZODONE HCL Inactive AMITRIPTYLINE HCL 100 MG TAB one at hs AMITRIPTYLINE HCL 100 MG TAB 535388 AMITRIPTYLINE HCL Inactive AMLODIPINE BESYLATE 5 MG TABS 1 tablet by mouth daily AMLODIPINE BESYLATE 5 MG TABS 080391 AMLODIPINE BESYLATE Inactive LATUDA 80 MG TABS Take one by mouth daily LATUDA 80 MG TABS LURASIDONE HCL Inactive SAPHRIS 5 MG SUBL 1 po bid SAPHRIS 5 MG SUBL ASENAPINE MALEATE Inactive CEFDINIR 300 MG CAPS by mouth twice a day CEFDINIR 300 MG CAPS 089696 CEFDINIR Inactive PREDNISONE 20 MG TAB 2 tabs daily for 3 days, 1 tab daily for 3 days, 1/2 tab daily for 2 days PREDNISONE 20 MG TAB 205243 PREDNISONE Inactive BACTRIM DS 800-160 MG TABS 1 po BID x 7 days BACTRIM DS 800-160 MG TABS 351670 SULFAMETHOXAZOLE-TRIMETHOPRIM Inactive DIFLUCAN 150 MG TABS 1 pill every other day x 2 doses DIFLUCAN 150 MG TABS 343038 FLUCONAZOLE Inactive BACTRIM DS 800-160 MG TABS 1 pill by mouth twice daily BACTRIM DS 800-160 MG TABS 690769 SULFAMETHOXAZOLE-TRIMETHOPRIM Inactive Vital Signs Date Name Value [...] Panel - Chemistry sodium, serum 139 mmol/L 302-633 1393/12/03 carbon dioxide, venous blood 28.5 mmol/L 21.0-32.0 [...] 5.5 % 4.3-6.0 cholesterol, serum 159 mg/dL 986-684 9870/12/03 triglyceride, serum, fasting 118 mg/dL 30-200 HDL [...] ... - Chemistry sodium, serum 140 mmol/L 643-093 9785/05/28 potassium, serum 4.2 mmol/L 3.5-5.2 chloride, serum [...] Panel - Chemistry sodium, serum 141 mmol/L 968-657 1024 potassium, serum 4.3 mmol/L 3.5-5.2 chloride, serum 106 mmol/L 98-107 carbon dioxide, venous blood 25.7 mmol/L 21.0-32.0 blood glucose 119 mg/dL 65-110 urea nitrogen, blood 22 mg/dL 7-18 creatinine, serum 0.90 mg/dL 0.60-1.30 alanine aminotransferase (SGPT), serum 28 U/L 12-78 aspartate aminotransferase (SGOT), serum 13 U/L 15-37 calcium, serum 8.5 mg/dL 8.5-10.1 bilirubin, serum, total 0.20 mg/dL 0.00-1.00 sodium, serum 139 mmol/L 564-760 2611/12/22 carbon dioxide, venous blood 26.8 mmol/L 21.0-32.0 [...] Rate - Chemistry sodium, serum 139 mmol/L 250-636 5483/12/11 carbon dioxide, venous blood 25.4 mmol/L 21.0-32.0 [...] Panel - Chemistry sodium, serum 139 mmol/L 371-173 4168/12/31 potassium, serum 4.8 mmol/L 3.5-5.2 chloride, serum 106 mmol/L 98-107 carbon dioxide, venous blood 24.3 mmol/L 21.0-32.0 blood glucose 90 mg/dL 65-110 urea nitrogen, blood 16 mg/dL 7-18 creatinine, serum 1.00 mg/dL 0.60-1.30 alanine aminotransferase (SGPT), serum 41 U/L 12-78 aspartate aminotransferase (SGOT), serum 17 U/L 15-37 calcium, serum 8.6 mg/dL 8.5-10.1 bilirubin, serum, total 0.30 mg/dL 0.00-1.00 cholesterol, serum 108 mg/dL 565-580 9266/12/31 triglyceride, serum, fasting 120 mg/dL 30-200 HDL [...] 5.5 5.0-8.5 Lab Report: UADIP W/MICRO, AUTO, [facility] [place] - Chemistry RBC, urine, dipstick Negative Negative protein, total urine random Negative mg/dL Negative human chorionic gonadotropin, urine, qualitative (urine test) Negative Negative Lab Report: UADIP W/MICRO, AUTO, [facility] [place] - Urinalysis glucose, urine, semiquantitative Negative Negative ketones, urine, by test strip Negative Negative bilirubin, urine Negative Negative urine color Yellow Colorless;Lightyellow;Straw;Yellow appearance, urine Clear Clear specific gravity, urine 1.025 1.000-1.030 pH, urine, semiquantitative 7.0 5.0-8.5 urobilinogen, urine, semiquantitative (dipstick) 0.2 Normal leukocyte esterase, urine, by dipstick Negative Negative nitrite, urine, semiquantitative Negative Negative Lab Report: Varicella-Zoater Inga IgG,IgM/22933, HEP Be Antibody/556, RUB ... - Serology rubella antibody, serum, IgG 2.88 Encounters Code Encounter Date Provider Facility CPT-40465 Level 3 Est. Patient 11:37:33 [employer]NAGER Vishal Hui MD [facility] CPT-67888 Level 3 Est. Patient 08:41:09 [employer] PROJECT MANAGER Vishal Hui MD [facility] CPT-21331 Level 4 Est. Patient 10:19:35 [employer] PROJECT MANAGER Vishal Hui MD [facility] CPT-23221 Level 3 Est. Patient 13:35:45 CDT Vishal Hui MD [facility] CPT-67288 Level 4 Est. Patient 10:08:37 CDT Vishal Hui MD [facility] CPT-60254 Level 3 Est. Patient 11:22:10 CDT Vishal Hui MD [facility] CPT-14489 Level 3 Est. Patient 11:03:32 CDT Sahara Rodriguez MD [facility] CPT-87626 Level 3 Est. Patient 09:41:35 CDT Vishal Hui MD [facility]-04379 Level 3 Est. Patient 12:00:41 CDT Neeraj Collins MD [facility] CPT-98784 Level 3 Est. Patient 09:16:24 CDT Vishal Hui MD [facility] CPT-03183 Level 4 Est. Patient 13:59:09 CDT Neeraj Collins MD [facility] CPT-29195 Level 3 Est. Patient 15:19:43 CDT Renzo Thornton DO [facility] CPT-27464 Level 3 Est. Patient 18:10:26 CDT Sahara Rodriguez MD [facility]-08963 Level 3 Est. Patient 14:49:50 CDT Vishal Hui MD [facility] CPT-78108 Level 4 Est. Patient 18:41:46 CDT Neeraj Collins MD [facility]-89054 Level 4 Est. Patient 09:18:38 [employer] PROJECT MANAGER Vishal Hui MD [facility] CPT-69785 Level 3 Est. Patient 14:43:55 [employer] PROJECT MANAGER iVshal Hui MD [facility] CPT-63493 Level 3 Est. Patient 15:26:33 [employer] PROJECT MANAGER Sahara Rodriguez MD PhD [facility] CPT-32109 Level 3 Est. Patient 10:32:14 [employer] PROJECT MANAGER Vishal Hiu MD [facility] CPT-38916 Level 3 Est. Patient 15:12:52 [employer] PROJECT MANAGER Vishal Hui MD [facility] CPT-78858 Level 4 Est. Patient 09:19:27 CDT Vishal Hui MD [facility] CPT-61398 Level 3 Est. Patient 15:53:00 CDT Renzo Thornton [facility] CPT-50881 Level 3 Est. Patient 15:50:30 CDT Renzo Thornton [facility] CPT-95077 Level 3 Est. Patient 16:55:24 CDT Vishal Hui MD [facility] Procedures Code Procedure Name Date Entry Date Standard Description CPT-30357 Recombivax HB Injection Suspension 5 MCG/0.5ML 08:37:50 [employer] MANAGER CPT-69716 Immunization Single Admin 08:37:50 [employer] MANAGER CPT-J3420 Vitamin B12 1000mcg (Cyanocobalamin) 08:32:16 [employer] PROJECT MANAGER 03/11 CPT-05289 Abx/Therapy Injection 08:32:16 [employer] PROJECT MANAGER CPT-29137 Chest 2V Frontal and Lat 11:46:38 [employer] PROJECT MANAGER CPT-54126 Venipuncture Draw Fee 09:12:45 [employer] PROJECT MANAGER CPT-J3420 Vitamin B12 1000mcg (Cyanocobalamin) 08:50:15 [employer] PROJECT MANAGER 02/08 CPT-71743 Abx/Therapy Injection 08:50:15 [employer] PROJECT MANAGER CPT-Cryo Cryotherapy 10:19:35 [employer] PROJECT MANAGER CPT-000 Give Appropriate Flu Vaccine 09:22:16 CDT CPT-J3420 Vitamin B12 1000mcg (Cyanocobalamin) 19:08:57 CDT 01/11 CPT-05195 Abx/Therapy Injection 19:08:57 CDT CPT-J3420 Vitamin B12 1000mcg (Cyanocobalamin) 08:19:08 CDT 12/11 CPT-32696 Abx/Therapy Injection 08:19:08 CDT CPT-J3420 Vitamin B12 1000mcg (Cyanocobalamin) 14:48:00 CDT 11/09 CPT-85841 Abx/Therapy Injection 14:47:59 CDT CPT-J3420 Vitamin B12 1000mcg (Cyanocobalamin) 08:34:04 CDT 10/09 CPT-25810 Abx/Therapy Injection 08:34:04 CDT CPT-J3420 Vitamin B12 1000mcg (Cyanocobalamin) 09:18:52 CDT 09/11 CPT-46532 Abx/Therapy Injection 09:18:52 CDT CPT-J3420 Vitamin B12 1000mcg (Cyanocobalamin) 08:35:44 CDT 09/04 CPT-02297 Abx/Therapy Injection 08:35:44 CDT CPT-03878 Immunization Single Admin 11:07:16 CDT CPT-26500 Hepatitis B adult IM 11:07:16 CDT CPT-J3420 Vitamin B12 1000mcg (Cyanocobalamin) 11:00:49 CDT 08/28 CPT-J1040 Depo Medrol 80 mg (Methyl Prednisolone Acetate) 11:00: 49 CDT CPT-34902 Abx/Therapy Injection 11:00:49 CDT CPT-J1040 Depo Medrol 80 mg (Methyl Prednisolone Acetate) 09:16: 23 CDT CPT-J3420 Vitamin B12 1000mcg (Cyanocobalamin) 08:27:05 CDT 08/20 CPT-44528 Abx/Therapy Injection 08:27:05 CDT CPT-21360 Recombivax HB Injection Suspension 5 MCG/0.5ML 10:00:41 CDT CPT-51685 Administration single or combination vaccine inc oral 10 :00:41 CDT CPT-53372 Sono transvag pelvis non OB uterus ovaries cervix 16:36: 57 CDT CPT-09763 LS spine comp w obliq 09:50:55 [employer] MANAGER CPT-67150 Abd compl w upright 09:50:55 [employer] PROJECT MANAGER CPT-J1100 Decadron 4mg (Dexamethasone) 15:51:24 [employer]LECTRICAL [employer] PROJECT MANAGER CPT-J1030 Depo Medrol 40 mg (Methyl Prednisolone Acetate) 15:51: 24 [employer]LECT[employer]ICAL [employer] PROJECT MANAGER CPT-47021 Abx/Therapy Injection 15:51:24 ELECTRICAL [employer]CTION PROJECT MANAGER CPT-J1100 Decadron 4mg (Dexamethasone) 15:26:33 E[employer]RICAL [employer]CTION PROJECT MANAGER CPT-J1030 Depo Medrol 40 mg (Methyl Prednisolone Acetate) 15:26: 33 [employer] PROJECT MANAGER CPT-90595 Sono retroperitoneal complete kidneys and bladder 17:15: 30 CDT CPT-97272 Abd compl w upright 16:09:25 CDT CPT-J1100 Decadron 8mg (Dexamethasone) 17:07:57 CDT CPT-30975 Abx/Therapy Injection 17:07:57 CDT CPT-J1100 Decadron 8mg (Dexamethasone) 16:55:24 CDT CPT-20808 Chest 2V Frontal and Lat 16:32:44 CDT
--- OUTSIDE RECORDS SUMMARY | 2016-11-04 19:18 | XMS REPORT | Clinical Summary ---
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 Juliet Kimbrough [employer]NER Dependence on other enabling machines and devices [...] Shortness of breath 786.05 Active Fabiola Johnson [employer] Shortness of breath Nocturnal hypoxia 799.02 Active Fabiola Johnson [employer] Hypoxemia Neck pain 723.1 Active Luigi Martínez [employer] Cervicalgia Vaginal discharge 623.5 Active Neeraj Collins [...] 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 Jim Hui MD Nevus, 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 iJm Hui MD Encounter for removal of sutures [...] then 1 daily for 4 days AZITHROMYCIN 34478891484 Active Ahmet Carbajal MD Active PREDNISONE 20 MG TABS 2 daily for 5 days then 1 daily for 5 days PREDNISONE 13486493199 Active Ahmet Carbajal MD Active PROAIR HFA 108 (90 BASE) MCG/ACT AERS 2 puffs four times a day as needed 2015 ALBUTEROL SULFATE 83078129336 Active Ahmet Carbajal MD Active HYDROCODONE-ACETAMINOPHEN 5-325 MG TABS 1 to 2 four times a day as needed for pain use until can be seen by specialist HYDROCODONE- ACETAMINOPHEN 69664700925 Active Lynda Xiao FILM [employer]ITIC Active DICLOFENAC SODIUM 50 MG TBEC 1 tablet by mouth four times daily PRN Pain 2015 DICLOFENAC SODIUM 30317954938 Active Vishal Hui MD Active DICLOFENAC POTASSIUM TABS Take 1 tablet twice a day (pt. is not sure of the dose.) DICLOFENAC POTASSIUM TABS 79289489628 No Longer Active Vishal Hui MD Active VERAPAMIL HCL ER 120 MG ORAL CR-TABS Take 1 tablet by mouth twice a day. VERAPAMIL HCL 03945453412 Active Vishal Hui MD Active FLAGYL 500 MG TAB 1 tablet by mouth bid METRONIDAZOLE 23623238804 No Longer Active Vishal Hui MD Active ABILIFY MAINTENA 400 MG IM SUSR 400mg injection every 28 days ARIPIPRAZOLE 52085116938 Active Silvia Wilian Casey FILM CRITIC Active FLUTICASONE PROPIONATE 50 MCG/ACT SUSP 2 sprays each nostril daily before bed. FLUTICASONE PROPIONATE 78040597670 Active Fabiola Johnson APRN Active ADZENYS XR-ODT 6.3 MG ORAL TBED 1 tab po daily for ADHD AMPHETAMINE 90135112400 Active Fabiola Johnson APRN Active BENADRYL 25 MG CAP 4 po at bedtime for insomnia DIPHENHYDRAMINE HCL 28914703590 Active Fabiola Johnson APRN Active KLONOPIN 1 MG ORAL TABS 1 tab po TID CLONAZEPAM 53820584299 Active Fabiola Johnson APRN Active VALIUM 5 MG TAB Take 1-2 tablets daily DIAZEPAM 13968880039 No Longer Active Fabiola Johnson APRN Active METOPROLOL TARTRATE 25 MG ORAL TABS 1/2 tablet twice daily for heart rate and blood pressure METOPROLOL TARTRATE 27088110039 No Longer Active Fabiola Johnson APRN Active MIRALAX ORAL POWD 17GMS DAILY IN WATER POLYETHYLENE GLYCOL 3350 92196840909 Active Vishal Hui MD Active VIIBRYD 10 MG ORAL TABS Take 1 tablet once a day VILAZODONE HCL 17413953172 Active Ahmet Carbajal MD Active MIRALAX PACK 1 po qd PRN Constipation POLYETHYLENE GLYCOL 3350 98485200600 No Longer Active Ahmet Carbajal MD Active MINIPRESS 2 MG CAPS 4 cap po at night PRAZOSIN HCL 99653799651 No Longer Active Ahmet Carbajal MD Active PIROXICAM 20 MG CAPS 1 cap po qd PRN Pain PIROXICAM 15603213004 No Longer Active Ahmet Carbajal MD Active TRAMADOL HCL 50 MG TABS 1-2 po TID PRN Pain TRAMADOL HCL 01634450983 No Longer Active Ahmet Carbajal MD Active METOPROLOL TARTRATE 50 MG TAB 1 po bid METOPROLOL TARTRATE 61501002754 No Longer Active Ahmet Carbajal MD Active ABILIFY 15 MG ORAL TABS 1 tab daily ARIPIPRAZOLE 72453327178 No Longer Active Ahmet Carbajal MD Active PROZAC 20 MG ORAL CAPS 1 tab daily FLUOXETINE HCL 07781630311 No Longer Active Ahmet Carbajal MD Active AMBIEN 5 MG ORAL TABS 1 tab at bedtime ZOLPIDEM TARTRATE 33898818887 No Longer Active Ahmet Carbajal MD Active PREDNISONE 20 MG TAB 2 tabs daily for 4 days, 1 tab daily for 4 days, 1/2 tab daily for 4 days PREDNISONE 70105016222 No Longer Active Ahmet Carbajal MD Active KEFLEX 500 MG CAP 1 po TID x 10 days CEPHALEXIN 12102105263 No Longer Active Vishal Hui MD Active IMITREX 50 MG ORAL TABS 1/2 tab every 6 hours prn SUMATRIPTAN SUCCINATE 24460211258 Active Jillina Fralebron [employer]NER Active TOPAMAX 50 MG ORAL TABS 1 tab twice daily TOPIRAMATE 25417553261 Active Vishal Hui MD Active SAPHRIS 5 MG SUBL 1 po bid ASENAPINE MALEATE 11241489394 No Longer Active Pacollina Mauricio [employer]AL PL[employer]NER Active LATUDA 80 MG TABS Take one by mouth daily LURASIDONE HCL 90529865815 No Longer Active Jillina Fralebron [employer]ERAL PL[employer]NER Active AMLODIPINE BESYLATE 5 MG TABS 1 tablet by mouth daily AMLODIPINE BESYLATE 40969117178 No Longer Active Jillina Frazelephraim [employer]ERAL PLANNER Active AMITRIPTYLINE HCL 100 MG TAB one at hs AMITRIPTYLINE HCL 90028023517 No Longer Active Vishal Hui MD Active TRAZODONE HCL 100 MG TAB take 1 at bedtime TRAZODONE HCL 39781225904 No Longer Active Vishal Hui MD Active VYVANSE 40 MG CAPS 1 daily, LISDEXAMFETAMINE DIMESYLATE 72598733113 No Longer Active Vishal Hui MD Active IBUPROFEN 600 MG TAB 1 po TID PRN IBUPROFEN 44559851988 No Longer Active Vishal Hui MD Active PROZAC 20 MG CAP Take one by mouth daily FLUOXETINE HCL 65438867633 No Longer Active Vishal Hui MD Active ZOFRAN 4 MG TABS 1 po q6hr PRN Nausea ONDANSETRON HCL Active Vishal Hui MD Active BACTRIM DS 800-160 MG TABS 1 pill by mouth twice daily SULFAMETHOXAZOLE-TRIMETHOPRIM 60129253608 No Longer Active Sahara Rodriguez MD PhD Active DIFLUCAN 150 MG TAB 1 tablet by mouth daily FLUCONAZOLE 31624303683 No Longer Active Vishal Hui MD Active TIZANIDINE HCL 4 MG TABS 1 po q6hr PRN Muscle Spasm/Back Pain TIZANIDINE HCL 81706226572 Active Vishal Hui MD Active CLINDAMYCIN HCL 150 MG CAPS 1 four times a day CLINDAMYCIN HCL 18887802945 No Longer Active Neeraj Collins MD Active KEFLEX 500 MG ORAL CAPS 1 cap QID by mouth CEPHALEXIN 85669905850 No Longer Active Neeraj Collins MD Active DIFLUCAN 150 MG TABS 1 pill every other day x 2 doses FLUCONAZOLE 39655377892 No Longer Active Sahara Rodriguez MD PhD Active MELATONIN 3 MG CAPS 2 po q hs MELATONIN 04458589549 No Longer Active Sahara Rodriguez MD PhD Active MULTIVITAMINS CAPS Take one by mouth daily MULTIPLE VITAMIN 79315523311 No Longer Active Sahara Rodriguez MD PhD Active BACTRIM DS 800-160 MG TAB 1 tab by mouth twice daily TRIMETHOPRIM-SULFAMETHOXAZOLE 00578294874 No Longer Active Sahara Rodriguez MD PhD Active [facility] PROBIOTIC ORAL CHEW 2 daily po PROBIOTIC PRODUCT 32536534066 No Longer Active Sahara Rodriguez MD PhD Active BACTRIM DS 800-160 MG TABS 1 po BID x 7 days SULFAMETHOXAZOLE-TRIMETHOPRIM 97327308300 No Longer Active Vishal Hui MD Active CHANTIX STARTING MONTH EARNEST 0.5 MG X 11 & 1 MG X 42 TABS 0.5mg daily for 3 days , then 0.5mg BID for 4 days, then 1mg BID VARENICLINE TARTRATE 32791367888 No Longer Active TAMARA Gray Active VERAPAMIL HCL CR 120 MG TAB CR 1 po bid VERAPAMIL HCL 81708480684 No Longer Active Vishal Hui MD Active METOPROLOL SUCCINATE 50 MG TB24 1 tablet by mouth daily METOPROLOL SUCCINATE 48601858484 No Longer Active Vishal Hui MD Active SAPHRIS 10 MG SUBL 1 tab po bid ASENAPINE MALEATE 46450963006 No Longer Active Vishal Hui MD Active LISINOPRIL 20 MG TABS 1 tab po qd LISINOPRIL 83767058824 No Longer Active Vishal Hui MD Active LATUDA 20 MG TABS Take one by mouth daily LURASIDONE HCL 53168659511 No Longer Active Vishal Hui MD Active TRAZODONE HCL 50 MG TABS 1/2 tab po qd prn for anxiety TRAZODONE HCL 77515164667 No Longer Active Vishal Hui MD Active OMEPRAZOLE 20 MG TBEC 1 po q a.m. 30min prior to first food intake OMEPRAZOLE 28103946546 Active Vishal Hui MD Active RANITIDINE HCL 150 MG CAPS 1 twice a day RANITIDINE HCL 87135028322 Active Luigi Martínez APRN Active LINZESS 290 MCG CAPS Take one by mouth daily LINACLOTIDE 21220178514 No Longer Active Vishal Hui MD Active SAPHRIS 5 MG SUBL 1 tab po qd ASENAPINE MALEATE 47592590887 No Longer Active Vishal Hui MD Active ZALEPLON 10 MG CAPS 1 cap po every other night ZALEPLON 20104494798 No Longer Active Vishal Hui MD Active LYRICA 50 MG CAPS 1 tab po TID PREGABALIN 89188307952 No Longer Active Vishal Hui MD Active LORATADINE 10 MG TABS 1 tab po qd LORATADINE 43207230462 No Longer Active Vishal Hui MD Active VERAPAMIL HCL ER 180 MG CR-TABS 1 tab po bid VERAPAMIL HCL 24396293441 No Longer Active Vishal Hui MD Active MIRALAX POWD 1 capfull once daily POLYETHYLENE GLYCOL 3350 17720621781 No Longer Active Vishal Hui MD Active PREDNISONE 20 MG TABS 1 tab po qd PREDNISONE 18893050353 No Longer Active Renzo Thornton DO Active LEVOFLOXACIN 500 MG TABS 1 tab po qd LEVOFLOXACIN 21001413491 No Longer Active Renzo Thornton DO Active BUSPIRONE HCL 15 MG TABS 1 tab po TID BUSPIRONE HCL 00855585933 No Longer Active Renzo Thornton DO Active BENZTROPINE MESYLATE 1 MG TABS 1 tab po qd BENZTROPINE MESYLATE 44264323027 No Longer Active Renzo Thornton DO Active ATENOLOL 25 MG TABS 1 tab po qd ATENOLOL 55985002877 No Longer Active Renzo Thornton DO Active ESCITALOPRAM OXALATE 20 MG TABS 1 tab po qd ESCITALOPRAM OXALATE 54778360684 No Longer Active Renzo Thornton DO Active ADVAIR DISKUS 250-50 MCG/DOSE AEPB 1 puff BID FLUTICASONE-SALMETEROL 32258561190 No Longer Active Renzo Thornton DO Active PREDNISONE 20 MG TAB 2 tabs daily for 3 days, 1 tab daily for 3 days, 1/2 tab daily for 2 days PREDNISONE 00955546451 No Longer Active Vishal Hui MD Active CEFDINIR 300 MG CAPS by mouth twice a day CEFDINIR 52847939532 No Longer Active Vishal Hui MD Active LANSOPRAZOLE 30 MG CPDR 1 cap po qd LANSOPRAZOLE 07728308713 No Longer Active Vishal Hui MD Active BACLOFEN 20 MG TABS 1 tab po tid BACLOFEN 08756627861 No Longer Active Vishal Hui MD Active ADVAIR DISKUS 250-50 MCG/DOSE AEPB 1 puff BID ADVAIR DISKUS 250-50 MCG/DOSE AEPB FLUTICASONE-SALMETEROL Inactive ESCITALOPRAM OXALATE 20 MG TABS 1 tab po qd ESCITALOPRAM OXALATE 20 MG TABS 780190 ESCITALOPRAM OXALATE Inactive ATENOLOL 25 MG TABS 1 tab po qd ATENOLOL 25 MG TABS 899367 ATENOLOL Inactive BENZTROPINE MESYLATE 1 MG TABS 1 tab po qd BENZTROPINE MESYLATE 1 MG TABS 798494 BENZTROPINE MESYLATE Inactive BUSPIRONE HCL 15 MG TABS 1 tab po TID BUSPIRONE HCL 15 MG TABS 426553 BUSPIRONE HCL Inactive LEVOFLOXACIN 500 MG TABS 1 tab po qd LEVOFLOXACIN 500 MG TABS 956698 LEVOFLOXACIN Inactive PREDNISONE 20 MG TABS 1 tab po qd PREDNISONE 20 MG TABS 246984 PREDNISONE Inactive MIRALAX POWD 1 capfull once daily MIRALAX POWD 309148 POLYETHYLENE GLYCOL 3350 Inactive VERAPAMIL HCL ER 180 MG CR-TABS 1 tab po bid VERAPAMIL HCL ER 180 MG CR-TABS VERAPAMIL HCL Inactive LORATADINE 10 MG TABS 1 tab po qd LORATADINE 10 MG TABS 750595 LORATADINE Inactive LYRICA 50 MG CAPS 1 tab po TID LYRICA 50 MG CAPS PREGABALIN Inactive ZALEPLON 10 MG CAPS 1 cap po every other night ZALEPLON 10 MG CAPS 252524 ZALEPLON Inactive SAPHRIS 5 MG SUBL 1 tab po qd SAPHRIS 5 MG SUBL ASENAPINE MALEATE Inactive TRAZODONE HCL 50 MG TABS 1/2 tab po qd prn for anxiety TRAZODONE HCL 50 MG TABS 435364 TRAZODONE HCL Inactive LATUDA 20 MG TABS Take one by mouth daily LATUDA 20 MG TABS LURASIDONE HCL Inactive LISINOPRIL 20 MG TABS 1 tab po qd LISINOPRIL 20 MG TABS 918364 LISINOPRIL Inactive SAPHRIS 10 MG SUBL 1 [...] twice daily BACTRIM DS 800-160 MG TAB 455441 TRIMETHOPRIM-SULFAMETHOXAZOLE Inactive MULTIVITAMINS CAPS Take one by mouth daily MULTIVITAMINS CAPS MULTIPLE VITAMIN Inactive MELATONIN 3 MG CAPS 2 po q hs MELATONIN 3 MG CAPS 19950526 MELATONIN Inactive KEFLEX 500 MG ORAL CAPS 1 cap QID by mouth KEFLEX 500 MG ORAL CAPS 594419 CEPHALEXIN Inactive CLINDAMYCIN HCL 150 MG CAPS 1 four times a day CLINDAMYCIN HCL 150 MG CAPS 852433 CLINDAMYCIN HCL Inactive DIFLUCAN 150 MG TAB 1 tablet by mouth daily DIFLUCAN 150 MG TAB 326785 FLUCONAZOLE Inactive PROZAC 20 MG CAP Take one by mouth daily PROZAC 20 MG CAP 770954 FLUOXETINE HCL Inactive IBUPROFEN 600 MG TAB 1 po TID PRN IBUPROFEN 600 MG TAB 775581 IBUPROFEN Inactive VYVANSE 40 MG CAPS 1 daily, VYVANSE 40 MG CAPS LISDEXAMFETAMINE DIMESYLATE Inactive TRAZODONE HCL 100 MG TAB take 1 at bedtime TRAZODONE HCL 100 MG TAB 468721 TRAZODONE HCL Inactive AMITRIPTYLINE HCL 100 MG TAB one at hs AMITRIPTYLINE HCL 100 MG TAB 389202 AMITRIPTYLINE HCL Inactive AMLODIPINE BESYLATE 5 MG TABS 1 tablet by mouth daily AMLODIPINE BESYLATE 5 MG TABS 377912 AMLODIPINE BESYLATE Inactive LATUDA 80 MG TABS Take one by mouth daily LATUDA 80 MG TABS LURASIDONE HCL Inactive SAPHRIS 5 MG SUBL 1 po bid SAPHRIS 5 MG SUBL ASENAPINE MALEATE Inactive PREDNISONE 20 MG TAB 2 tabs daily for 4 days, 1 tab daily for 4 days, 1/2 tab daily for 4 days PREDNISONE 20 MG TAB 044339 PREDNISONE Inactive AMBIEN 5 MG ORAL TABS 1 tab at bedtime AMBIEN 5 MG ORAL TABS 295297 ZOLPIDEM TARTRATE Inactive PROZAC 20 MG ORAL CAPS 1 tab daily PROZAC 20 MG ORAL CAPS 843154 FLUOXETINE HCL Inactive ABILIFY 15 MG ORAL TABS 1 tab daily ABILIFY 15 MG ORAL TABS 580347 ARIPIPRAZOLE Inactive METOPROLOL TARTRATE 50 MG TAB 1 po bid METOPROLOL TARTRATE 50 MG TAB 999912 METOPROLOL TARTRATE Inactive TRAMADOL HCL 50 MG TABS 1-2 po TID PRN Pain TRAMADOL HCL 50 MG TABS 156383 TRAMADOL HCL Inactive PIROXICAM 20 MG CAPS 1 cap po qd PRN Pain PIROXICAM 20 MG CAPS 772865 PIROXICAM Inactive MINIPRESS 2 MG CAPS 4 cap po at night MINIPRESS 2 MG CAPS 706995 PRAZOSIN HCL Inactive MIRALAX PACK 1 po qd PRN Constipation MIRALAX PACK 208796 POLYETHYLENE GLYCOL 3350 Inactive METOPROLOL TARTRATE 25 MG ORAL TABS 1/2 tablet twice daily for heart rate and blood pressure METOPROLOL TARTRATE 25 MG ORAL TABS 708671 METOPROLOL TARTRATE Inactive VALIUM 5 MG TAB Take 1-2 tablets daily VALIUM 5 MG TAB 468861 DIAZEPAM Inactive FLAGYL 500 MG TAB 1 tablet by mouth bid FLAGYL 500 MG TAB 021614 METRONIDAZOLE Inactive DICLOFENAC POTASSIUM TABS Take 1 tablet twice a day (pt. is not sure of the dose.) DICLOFENAC POTASSIUM TABS DICLOFENAC POTASSIUM TABS Inactive CEFDINIR 300 MG CAPS by mouth twice a day CEFDINIR 300 MG CAPS 716629 CEFDINIR Inactive PREDNISONE 20 MG TAB 2 tabs daily for 3 days, 1 tab daily for 3 days, 1/2 tab daily for 2 days PREDNISONE 20 MG TAB 612812 PREDNISONE Inactive BACTRIM DS 800-160 MG TABS 1 po BID x 7 days BACTRIM DS 800-160 MG TABS 714356 SULFAMETHOXAZOLE-TRIMETHOPRIM Inactive DIFLUCAN 150 MG TABS 1 pill every other day x 2 doses DIFLUCAN 150 MG TABS 785691 FLUCONAZOLE Inactive BACTRIM DS 800-160 MG TABS 1 pill by mouth twice daily BACTRIM DS 800-160 MG TABS 425462 SULFAMETHOXAZOLE-TRIMETHOPRIM Inactive KEFLEX 500 MG CAP 1 po TID x 10 days KEFLEX 500 MG CAP 654845 CEPHALEXIN Inactive Advance Directives Directive Description Start [...] % 11.6-14.8 platelet count 394 10^3/MM^3 10*3/mm3 397-444 7772/01/11 leukocyte count, blood 13.8 10^3/MM^3 10*3/mm3 4.6-10.2 [...] Panel - Chemistry sodium, serum 139 mmol/L 515-445 8168/12/03 carbon dioxide, venous blood 28.5 mmol/L 21.0-32.0 [...] 5.5 % 4.3-6.0 cholesterol, serum 159 mg/dL 437-556 1824/12/03 triglyceride, serum, fasting 118 mg/dL 30-200 HDL [...] Panel - Chemistry sodium, serum 139 mmol/L 742-121 2588/12/22 carbon dioxide, venous blood 26.8 mmol/L 21.0-32.0 potassium, serum 4.2 mmol/L 3.5-5.2 chloride, serum 103 mmol/L 98-107 blood glucose 115 mg/dL 65-110 urea nitrogen, blood 20 mg/dL 7-18 creatinine, serum 0.90 mg/dL 0.55-1.30 alanine aminotransferase (SGPT), serum 38 U/L 12-78 aspartate aminotransferase (SGOT), serum 19 U/L 15-37 calcium, serum 8.6 mg/dL 8.5-10.1 bilirubin, serum, total 0.30 mg/dL 0.00-1.00 sodium, serum 139 mmol/L 629-903 7748/01/11 carbon dioxide, venous blood 26.6 mmol/L 21.0-32.0 potassium, serum 4.1 mmol/L 3.5-5.2 chloride, serum 100 mmol/L 98-107 blood glucose 86 mg/dL 65-110 urea nitrogen, blood 16 mg/dL 7-18 creatinine, serum 1.00 mg/dL 0.55-1.30 alanine aminotransferase (SGPT), serum 48 U/L - aspartate aminotransferase (SGOT), serum 17 U/L 15-37 calcium, serum 9.1 mg/dL 8.5-10.1 bilirubin, serum, total 0.40 mg/dL 0.00-1.00 sodium, serum 142 mmol/L 814-438 2248/06/08 carbon dioxide, venous blood 27.6 mmol/L 21.0-32.0 potassium, serum 4.0 mmol/L 3.5-5.2 chloride, serum 105 mmol/L 98-107 blood glucose 95 mg/dL 65-110 urea nitrogen, blood 8 mg/dL 7-18 creatinine, serum 0.75 mg/dL 0.55-1.30 alanine aminotransferase (SGPT), serum 49 U/L aspartate aminotransferase (SGOT), serum 28 U/L - calcium, serum 9.4 mg/dL 8.5-10.1 bilirubin, serum, total 0.30 mg/dL 0.00-1.00 sodium, serum 140 mmol/L 769-152 6830/08/08 carbon dioxide, venous blood 33.7 mmol/L 21.0-32.0 [...] Rate - Chemistry sodium, serum 139 mmol/L 461-900 2289/12/11 carbon dioxide, venous blood 25.4 mmol/L 21.0-32.0 [...] mg/dL Encounters Code Encounter Date Provider Facility CPT-90951 Level 3 Est. Patient 11:36:17 CDT Ahmet Carbajal MD [facility] CPT-94736 Level 3 Est. Patient 13:29:16 CDT Vishal Hui MD [facility] CPT-92528 Level 3 Est. Patient 14:27:52 CDT Neeraj Collins MD [facility] CPT-63958 Level 3 Est. Patient 08:56:03 CDT Luigi Martínez [facility] CPT-00578 Level 4 Est. Patient 12:11:48 CDT Fabiola Johnson [facility] CPT-65674 Level 3 New Patient 16:53:37 CDT Albert Caldera MD [facility] CPT-77525 Level 3 Est. Patient 11:25:49 CDT Renzo Thornton DO [facility] CPT-77724 Level 3 Est. Patient 15:22:01 CDT Ahmet Carbajal MD [facility] CPT-40073 Level 4 Est. Patient 09:00:51 [employer] Vishal Hui MD [facility] CPT-28935 Level 3 Est. Patient 11:37:33 [employer] Vishal Hui MD [facility] CPT-35733 Level 3 Est. Patient 08:41:09 [employer] Vishal Hui MD [facility] CPT-99312 Level 4 Est. Patient 10:19:35 [employer] Vishal Hui MD [facility] CPT-38015 Level 3 Est. Patient 13:35:45 CDT Vishal Hui MD [facility] CPT-32061 Level 4 Est. Patient 10:08:37 CDT Vishal Hui MD [facility] CPT-94811 Level 3 Est. Patient 11:22:10 CDT Vishal Hui MD [facility] CPT-24958 Level 3 Est. Patient 11:03:32 CDT Sahara Rodriguez MD [facility]-04164 Level 3 Est. Patient 09:41:35 CDT Vishal Hui MD [facility] CPT-49635 Level 3 Est. Patient 12:00:41 CDT Neeraj Collins MD [facility]-12252 Level 3 Est. Patient 09:16:24 CDT Vishal Hui MD [facility] CPT-12145 Level 4 Est. Patient 13:59:09 CDT Neeraj Collins MD [facility] CPT-19369 Level 3 Est. Patient 15:19:43 CDT Renzo Thornton DO [facility] CPT-82537 Level 3 Est. Patient 18:10:26 CDT Sahara Rodriguez MD [facility] CPT-04215 Level 3 Est. Patient 14:49:50 CDT Vishal Hui MD [facility] CPT-04171 Level 4 Est. Patient 18:41:46 CDT Neeraj Collins MD [facility] CPT-19076 Level 4 Est. Patient 09:18:38 [employer] Vishal Hui MD [facility]-81881 Level 3 Est. Patient 14:43:55 [employer] Vishal Hui MD [facility] CPT-62390 Level 3 Est. Patient 15:26:33 [employer] Sahara Rodriguez MD PhD [facility]50616 Level 3 Est. Patient 10:32:14 [employer] Vishal Hui MD [facility] CPT-28649 Level 3 Est. Patient 15:12:52 [employer] Vishal Hui MD [facility] CPT-26544 Level 4 Est. Patient 09:19:27 CDT Vishal Hui MD [facility] CPT-32714 Level 3 Est. Patient 15:53:00 CDT Renzo Thornton [facility] CPT-15080 Level 3 Est. Patient 15:50:30 CDT Renzo Thornton [facility] CPT-69870 Level 3 Est. Patient 16:55:24 CDT Vishal Hui MD [facility] Procedures Code Procedure Name Date Entry Date Standard Description CPT-58131 Abx/Therapy Injection 13:29:56 CDT CPT-76467 Abx/Therapy Injection 08:36:16 CDT CPT-07223 Wet Mount - LAB USE ONLY 17:44:58 CDT CPT-85856 UA w micro - LAB USE ONLY 17:44:58 CDT CPT-28795 CMP - LAB USE ONLY 17:44:58 CDT CPT-66566 Venipuncture Draw Fee 17:44:58 CDT CPT-25778 Cervical Min 4V - XRAY USE ONLY 09:01:40 CDT CPT-98016 Chest 2V Frontal and Lat - XRAY USE ONLY 11:06:31 CDT CPT-64658 EKG Trac and Interp - XRAY USE ONLY 11:31:43 CDT 08/26 CPT-J3420 Vitamin B12 1000mcg (Cyanocobalamin) 08:10:26 [employer] 04/12 CPT-67689 Abx/Therapy Injection 08:10:26 [employer] CPT-G0438 Initial Annual Wellness Exam 19:01:01 [employer] CPT-J3420 Vitamin B12 1000mcg (Cyanocobalamin) 16:57:46 CDT 08/14 CPT-71768 Recombivax HB Injection Suspension 5 MCG/0.5ML 08:37:50 [employer] CPT-24074 Immunization Single Admin 08:37:50 [employer] CPT-J3420 Vitamin B12 1000mcg (Cyanocobalamin) 08:32:16 [employer] 03/11 CPT-49611 Abx/Therapy Injection 08:32:16 [employer] CPT-81422 Chest 2V Frontal and Lat 11:46:38 [employer] CPT-51845 Venipuncture Draw Fee 09:12:45 [employer] CPT-J3420 Vitamin B12 1000mcg (Cyanocobalamin) 08:50:15 [employer] 02/08 CPT-89277 Abx/Therapy Injection 08:50:15 [employer] CPT-Cryo Cryotherapy 10:19:35 [employer] CPT-000 Give Appropriate Flu Vaccine 09:22:16 CDT CPT-J3420 Vitamin B12 1000mcg (Cyanocobalamin) 19:08:57 CDT 01/11 CPT-73194 Abx/Therapy Injection 19:08:57 CDT CPT-J3420 Vitamin B12 1000mcg (Cyanocobalamin) 08:19:08 CDT 12/11 CPT-50523 Abx/Therapy Injection 08:19:08 CDT CPT-J3420 Vitamin B12 1000mcg (Cyanocobalamin) 14:48:00 CDT 11/09 CPT-88816 Abx/Therapy Injection 14:47:59 CDT CPT-J3420 Vitamin B12 1000mcg (Cyanocobalamin) 08:34:04 CDT 10/09 CPT-68279 Abx/Therapy Injection 08:34:04 CDT CPT-J3420 Vitamin B12 1000mcg (Cyanocobalamin) 09:18:52 CDT 09/11 CPT-18192 Abx/Therapy Injection 09:18:52 CDT CPT-J3420 Vitamin B12 1000mcg (Cyanocobalamin) 08:35:44 CDT 09/04 CPT-07697 Abx/Therapy Injection 08:35:44 CDT CPT-04201 Immunization Single Admin 11:07:16 CDT CPT-09730 Hepatitis B adult IM 11:07:16 CDT CPT-J3420 Vitamin B12 1000mcg (Cyanocobalamin) 11:00:49 CDT 08/28 CPT-J1040 Depo Medrol 80 mg (Methyl Prednisolone Acetate) 11:00: 49 CDT CPT-72759 Abx/Therapy Injection 11:00:49 CDT CPT-J1040 Depo Medrol 80 mg (Methyl Prednisolone Acetate) 09:16: 23 CDT CPT-J3420 Vitamin B12 1000mcg (Cyanocobalamin) 08:27:05 CDT 08/20 CPT-58025 Abx/Therapy Injection 08:27:05 CDT CPT-89358 Recombivax HB Injection Suspension 5 MCG/0.5ML 10:00:41 CDT CPT-00722 Administration single or combination vaccine inc oral 10 :00:41 CDT CPT-12497 Sono transvag pelvis non OB uterus ovaries cervix 16:36: 57 CDT CPT-90575 LS spine comp w obliq 09:50:55 [employer] CPT-70949 Abd compl w upright 09:50:55 [employer] CPT-J1100 Decadron 4mg (Dexamethasone) 15:51:24 [employer] CPT-J1030 Depo Medrol 40 mg (Methyl Prednisolone Acetate) 15:51: 24 [employer] CPT-78450 Abx/Therapy Injection 15:51:24 [employer] RESCUE CPT-J1100 Decadron 4mg (Dexamethasone) 15:26:33 [employer] AND RESCUE CPT-J1030 Depo Medrol 40 mg (Methyl Prednisolone Acetate) 15:26: 33 [employer] RESCUE CPT-45396 Sono retroperitoneal complete kidneys and bladder 17:15: 30 CDT CPT-32691 Abd compl w upright 16:09:25 CDT CPT-J1100 Decadron 8mg (Dexamethasone) 17:07:57 CDT CPT-69611 Abx/Therapy Injection 17:07:57 CDT CPT-J1100 Decadron 8mg (Dexamethasone) 16:55:24 CDT CPT-41128 Chest 2V Frontal and Lat 16:32:44 CDT
--- OUTSIDE RECORDS SUMMARY | 2016-11-04 19:21 | XMS REPORT | Clinical Summary ---
Author Author Admin, E Organization [employer] Address Unknown Phone Unavailable Allergies, Adverse Reactions, [...] a health care facility Vaginitis 616.10 Resolved Vishla Hui MD Vaginitis and vulvovaginitis, unspecified Mrsa [...] Active Ahmet Carbajal MD Generalized anxiety disorder Paper Supervisor well woman exam V72.31 Active Suzan [...] MD Health screening ICD-V70.0 Inactive Suzan Boo CLOTH SHRINKING MACHINE OPERATOR HELPER Sinus tachycardia ICD-427.89 Inactive Suzan Boo CLOTH SHRINKING MACHINE OPERATOR HELPER Smoker/tobacco use disorder-smoking cessation discussed ICD-305.1 [...] prior to first meal each day. LINACLOTIDE [id number] Active Lynda Madl PLASTIC MANAGER Active AMITIZA 8 MCG ORAL CAPS 1 tab BID LUBIPROSTONE 19741192574 No Longer Active Lynda Madl PLASTIC MANAGER Active DIFLUCAN 150 MG TABS 1 by mouth for yeast FLUCONAZOLE 60963115587 Active Suzan Boo APRN Active LACTULOSE 10 GM/15ML ORAL SOLN 30mL oral BID for IBS-C LACTULOSE 13411549660 Active Suzan Boo APRN Active BACTRIM DS 800-160 MG TABS 1 twice a day SULFAMETHOXAZOLE- TRIMETHOPRIM 68534088562 Active Lynda Ninoska PLASTIC MANAGER Active MUPIROCIN 2 % OINT apply twice a day MUPIROCIN 93348005361 Active Suzan Boo APRN Active TESSALON PERLES 100 MG CAPS 1 three times a day as needed for cough BENZONATATE 11466628641 No Longer Active Suzan Boo APRN Active BACTRIM DS 800-160 MG TABS 1 twice a day SULFAMETHOXAZOLE-TRIMETHOPRIM 44705338441 No Longer Active Suzan Boo APRN Active DIFLUCAN 150 MG TABS 1 by mouth for yeast FLUCONAZOLE 28836625656 No Longer Active Suzan Boo APRN Active EQ NICOTINE 21 MG/24HR TRANS PT24 Apply daily to stop smoking NICOTINE 73684555620 No Longer Active Suzan Boo APRN Active PREDNISONE 10 MG TABS 2 daily for 5 days then 1 daily for 5 days PREDNISONE 69063348725 No Longer Active Suzan Boo APRN Active LEVAQUIN 500 MG TABS 1 daily for infection LEVOFLOXACIN 71355394202 No Longer Active Suzan Boo APRN Active TROPICAMIDE 0.5 % OPHTH SOLN 1 drop PRN eye spasms TROPICAMIDE 25674875790 No Longer Active Suzan Boo APRN Active PREDNISONE 20 MG TAB 1 tablet daily x 4 days PREDNISONE 31302303702 No Longer Active Suzan Boo APRN Active ACETAMINOPHEN-CODEINE 120-12 MG/5ML SOLN 5 ml by mouth every 4-6 hours if needed for cough ACETAMINOPHEN-CODEINE 36947086699 No Longer Active Suzan Boo APRN Active KEFLEX 500 MG CAP 1 po qid CEPHALEXIN 53192295948 No Longer Active Suzan Boo APRN Active FLOVENT HFA 110 MCG/ACT AERO 2 puffs inhaled b.i.d. FLUTICASONE PROPIONATE HFA 49133122264 Active Renzo Thornton DO Active RISPERDAL 4 MG ORAL TABS 1 tab at bedtime RISPERIDONE 72505533313 Active Samantha Mirelesb RMA Active ZOFRAN 4 MG TABS 1 po q6hr PRN Nausea ONDANSETRON HCL No Longer Active Suzan Boo APRN Active FLUTICASONE PROPIONATE 50 MCG/ACT SUSP 2 sprays each nostril daily before bed. FLUTICASONE PROPIONATE 08132446285 No Longer Active Suzan Boo APRN Active ASPIRIN 325 MG ORAL TABS 1 tab q.d ASPIRIN 09714530496 No Longer Active Suzan Boo APRN Active HALOPERIDOL 10 MG ORAL TABS 1 tab q.d HALOPERIDOL 53472831781 No Longer Active Suzan Boo APRN Active GUAIFENESIN-CODEINE 100-10 MG/5ML SYRP 5ml every 4 to 6 hours as needed for cough GUAIFENESIN-CODEINE 99464325159 No Longer Active Suzan Boo APRN Active ZITHROMAX Z-EARNEST 250 MG TABS 2 today and then 1 daily for 4 days AZITHROMYCIN 54196344830 No Longer Active Suzan Boo APRN Active CLONAZEPAM 1 MG ORAL TABS 1 twice a day and an additional 1 tablet every other day as needed for pseudoseizures or anxiety CLONAZEPAM 99385624704 Active Suzan Boo APRN Active HYDROCODONE-ACETAMINOPHEN 5-325 MG ORAL TABS 1 tab two times a day HYDROCODONE-ACETAMINOPHEN 55009361448 No Longer Active Ahmet Carbajal MD Active LAMICTAL 100 MG ORAL TABS 1 tab 2 times qd. LAMOTRIGINE 90783830813 Active Ahmet Carbajal MD Active PREDNISONE 20 MG TABS 2 daily for 5 days then 1 daily for 5 days PREDNISONE 09259415027 No Longer Active Ahmet Carbajal MD Active FLUTICASONE PROPIONATE 50 MCG/ACT SUSP 1 to 2 sprays each nostril daily for allergies FLUTICASONE PROPIONATE 08237703456 Active Tila Valenzuela Active BENADRYL 25 MG CAP 4 po at bedtime for insomnia DIPHENHYDRAMINE HCL 00709204844 No Longer Active Ahmet Carbajal MD Active ADVAIR DISKUS 250-50 MCG/DOSE INH AEPB 1 puff twice a day for asthma FLUTICASONE-SALMETEROL 54802111125 No Longer Active Ahmet Carbajal MD Active KLONOPIN 1 MG ORAL TABS 1 tab po TID CLONAZEPAM 39720423761 No Longer Active Ahmet Carbajal MD Active ABILIFY MAINTENA 400 MG IM SUSR 400mg injection every 26 days ARIPIPRAZOLE 77006506409 No Longer Active Ahmet Carbajal MD Active TRAMADOL HCL 50 MG TABS 1/2-1 tab TID PRN TRAMADOL HCL 53662510688 No Longer Active Ahmet Carbajal MD Active BACTRIM DS 800-160 MG TABS 1 twice a day SULFAMETHOXAZOLE- TRIMETHOPRIM 53892088445 No Longer Active Ahmet Carbajal MD Active PROAIR HFA 108 (90 BASE) MCG/ACT AERS 2 puffs four times a day as needed 2015 ALBUTEROL SULFATE 70698369828 Active Honey Hinton APRN Active MONISTAT 7 COMBO PACK WOODROW 100 & 2 MG-% (9GM) VAG KIT 1 applicatorful per vagina q pm x 7 MICONAZOLE NITRATE 19791216544 No Longer Active Ahmet Carbajal MD Active FLAGYL 500 MG TAB 1 tablet by mouth bid METRONIDAZOLE 45374969637 No Longer Active Ahmet Carbajal MD Active OXYCODONE HCL ER 10 MG ORAL T12A 1/2 tab by mouth every 4 hours prn OXYCODONE HCL 53846276651 No Longer Active Ahmet Carbajal MD Active METHYLPREDNISOLONE 4 MG ORAL TABS po daily METHYLPREDNISOLONE 97188905074 No Longer Active Ahmet Carbajal MD Active LEVOFLOXACIN 500 MG ORAL TABS po daily LEVOFLOXACIN 42711209485 No Longer Active Ahmet Carbajal MD Active VIIBRYD 10 MG ORAL TABS Take 1 tablet once a day VILAZODONE HCL 10992058220 No Longer Active Ahmet Carbajal MD Active TOPAMAX 50 MG ORAL TABS 1 tab twice daily TOPIRAMATE 19441169994 No Longer Active Ahmet Carbajal MD Active DICLOFENAC SODIUM 50 MG TBEC 1 tablet by mouth four times daily PRN Pain 2015 DICLOFENAC SODIUM 75530693636 No Longer Active Ahmet Carbajal MD Active ADZENYS XR-ODT 6.3 MG ORAL TBED 1 tab po daily for ADHD AMPHETAMINE 52079053509 No Longer Active Ahmet Carbajal MD Active CHANTIX 1 MG TABS 1 twice a day to help quit smoking VARENICLINE TARTRATE 76455397843 No Longer Active Dipika Burgos MD Active CHANTIX STARTING MONTH EARNEST 0.5 MG X 11 & 1 MG X 42 TABS take as directed 2015 VARENICLINE TARTRATE 99241453493 No Longer Active Dipika Burgos MD Active TESSALON PERLES 100 MG CAP 1 to 2 tablets by mouth 3 times daily as needed for cough BENZONATATE 07373250085 No Longer Active Pacolljanee Martínez APRN Active IMITREX 50 MG ORAL TABS 0.5 po x 1 PRN Headache. May repeat dose x 1 in 2 hours if needed SUMATRIPTAN SUCCINATE 09440740622 Active Ahmet Carbajal MD Active HYDROCODONE-ACETAMINOPHEN 5-325 MG TABS 1 to 2 four times a day as needed for pain use until can be seen by specialist HYDROCODONE- ACETAMINOPHEN 01432138500 No Longer Active Vishal Hui MD Active PROAIR HFA 108 (90 BASE) MCG/ACT AERS 2 puffs four times a day as needed 2015 ALBUTEROL SULFATE 48292129311 No Longer Active Vishal Hui MD Active PREDNISONE 20 MG TABS 2 daily for 5 days then 1 daily for 5 days PREDNISONE 89910854884 No Longer Active Vishal Hui MD Active ZITHROMAX Z-EARNEST 250 MG TABS 2 today and then 1 daily for 4 days AZITHROMYCIN 39770543727 No Longer Active Vishal Hui MD Active DICLOFENAC POTASSIUM TABS Take 1 tablet twice a day (pt. is not sure of the dose.) DICLOFENAC POTASSIUM TABS 82044876709 No Longer Active Vishal Hui MD Active VERAPAMIL HCL ER 120 MG ORAL CR-TABS Take 1 tablet by mouth twice a day. VERAPAMIL HCL 88524731317 Active Vishal Hui MD Active FLAGYL 500 MG TAB 1 tablet by mouth bid METRONIDAZOLE 45629690545 No Longer Active Vishal Hui MD Active VALIUM 5 MG TAB Take 1-2 tablets daily DIAZEPAM 88069895907 No Longer Active Fabiola Johnson APRN Active METOPROLOL TARTRATE 25 MG ORAL TABS 1/2 tablet twice daily for heart rate and blood pressure METOPROLOL TARTRATE 80871732579 No Longer Active Fabiola Johnson APRN Active MIRALAX ORAL POWD 17GMS DAILY IN WATER POLYETHYLENE GLYCOL 3350 99037823138 Active TAMARA Casey Active MIRALAX PACK 1 po qd PRN Constipation POLYETHYLENE GLYCOL 3350 84440147535 No Longer Active Ahmet Carbajal MD Active MINIPRESS 2 MG CAPS 4 cap po at night PRAZOSIN HCL 99022942623 No Longer Active Ahmet Carbajal MD Active PIROXICAM 20 MG CAPS 1 cap po qd PRN Pain PIROXICAM 92096059968 No Longer Active Ahmet Carbajal MD Active TRAMADOL HCL 50 MG TABS 1-2 po TID PRN Pain TRAMADOL HCL 77775787324 No Longer Active Ahmet Carbajal MD Active METOPROLOL TARTRATE 50 MG TAB 1 po bid METOPROLOL TARTRATE 04748411476 No Longer Active Ahmet Carbajal MD Active ABILIFY 15 MG ORAL TABS 1 tab daily ARIPIPRAZOLE 39624418095 No Longer Active Ahmet Carbajal MD Active PROZAC 20 MG ORAL CAPS 1 tab daily FLUOXETINE HCL 25501840922 No Longer Active Ahmet Carbajal MD Active AMBIEN 5 MG ORAL TABS 1 tab at bedtime ZOLPIDEM TARTRATE 76122131315 No Longer Active Ahmet Carbajal MD Active PREDNISONE 20 MG TAB 2 tabs daily for 4 days, 1 tab daily for 4 days, 1/2 tab daily for 4 days PREDNISONE 38701750009 No Longer Active Ahmet Carbajal MD Active KEFLEX 500 MG CAP 1 po TID x 10 days CEPHALEXIN 75808048018 No Longer Active Vishal Hui MD Active SAPHRIS 5 MG SUBL 1 po bid ASENAPINE MALEATE 53058430677 No Longer Active Jillina Fradwightl CLOTH SHRINKING MACHINE OPERATOR HELPER Active LATUDA 80 MG TABS Take one by mouth daily LURASIDONE HCL 71794247230 No Longer Active Jillina Frazell CLOTH SHRINKING MACHINE OPERATOR HELPER Active AMLODIPINE BESYLATE 5 MG TABS 1 tablet by mouth daily AMLODIPINE BESYLATE 54896016851 No Longer Active Jillina Frazell CLOTH SHRINKING MACHINE OPERATOR HELPER Active AMITRIPTYLINE HCL 100 MG TAB one at hs AMITRIPTYLINE HCL 82534026456 No Longer Active Vishal Hui MD Active TRAZODONE HCL 100 MG TAB take 1 at bedtime TRAZODONE HCL 82247059596 No Longer Active Vishal Hui MD Active VYVANSE 40 MG CAPS 1 daily, LISDEXAMFETAMINE DIMESYLATE 50725899802 No Longer Active Vishal Hui MD Active IBUPROFEN 600 MG TAB 1 po TID PRN IBUPROFEN 22078830353 No Longer Active Vishal Hui MD Active PROZAC 20 MG CAP Take one by mouth daily FLUOXETINE HCL 63031613065 No Longer Active Vishal Hui MD Active BACTRIM DS 800-160 MG TABS 1 pill by mouth twice daily SULFAMETHOXAZOLE-TRIMETHOPRIM 49353833882 No Longer Active Sahara Rodriguez MD PhD Active DIFLUCAN 150 MG TAB 1 tablet by mouth daily FLUCONAZOLE 48283700845 No Longer Active Vishal Hui MD Active TIZANIDINE HCL 4 MG TABS 1 po q6hr PRN Muscle Spasm/Back Pain TIZANIDINE HCL 80275346879 Active TAMARA Casey Active CLINDAMYCIN HCL 150 MG CAPS 1 four times a day CLINDAMYCIN HCL 29659616006 No Longer Active Neeraj Collins MD Active KEFLEX 500 MG ORAL CAPS 1 cap QID by mouth CEPHALEXIN 93031115785 No Longer Active Neeraj Collins MD Active DIFLUCAN 150 MG TABS 1 pill every other day x 2 doses FLUCONAZOLE 13290223209 No Longer Active Sahara Rodriguez MD PhD Active MELATONIN 3 MG CAPS 2 po q hs MELATONIN 99763252340 No Longer Active Sahara Rodriguez MD PhD Active MULTIVITAMINS CAPS Take one by mouth daily MULTIPLE VITAMIN 90441959209 No Longer Active Sahara Rodriguez MD PhD Active BACTRIM DS 800-160 MG TAB 1 tab by mouth twice daily TRIMETHOPRIM-SULFAMETHOXAZOLE 24256303196 No Longer Active Sahara Rodriguez MD PhD Active [facility] PROBIOTIC ORAL CHEW 2 daily po PROBIOTIC PRODUCT 94308460202 No Longer Active Sahara Rodriguez MD PhD Active BACTRIM DS 800-160 MG TABS 1 po BID x 7 days SULFAMETHOXAZOLE-TRIMETHOPRIM 80197945102 No Longer Active Vishal Hui MD Active CHANTIX STARTING MONTH EARNEST 0.5 MG X 11 & 1 MG X 42 TABS 0.5mg daily for 3 days , then 0.5mg BID for 4 days, then 1mg BID VARENICLINE TARTRATE 16877822606 No Longer Active TAMARA Gray Active VERAPAMIL HCL CR 120 MG TAB CR 1 po bid VERAPAMIL HCL 28898557792 No Longer Active Vishal Hui MD Active METOPROLOL SUCCINATE 50 MG TB24 1 tablet by mouth daily METOPROLOL SUCCINATE 73150965031 No Longer Active Vishal Hui MD Active SAPHRIS 10 MG SUBL 1 tab po bid ASENAPINE MALEATE 95088382643 No Longer Active Vishal Hui MD Active LISINOPRIL 20 MG TABS 1 tab po qd LISINOPRIL 25363939279 No Longer Active Vishal Hui MD Active LATUDA 20 MG TABS Take one by mouth daily LURASIDONE HCL 65115917273 No Longer Active Vishal Hui MD Active TRAZODONE HCL 50 MG TABS 1/2 tab po qd prn for anxiety TRAZODONE HCL 04941612476 No Longer Active Vishal Hui MD Active OMEPRAZOLE 20 MG TBEC 1 po q a.m. 30min prior to first food intake OMEPRAZOLE 86968937701 Active TAMARA Casey Active RANITIDINE HCL 150 MG CAPS 1 twice a day RANITIDINE HCL 13470680557 Active Lynda Xiao LPN Active LINZESS 290 MCG CAPS Take one by mouth daily LINACLOTIDE 13083952057 No Longer Active Vishal Hui MD Active SAPHRIS 5 MG SUBL 1 tab po qd ASENAPINE MALEATE 48218989183 No Longer Active Vishal Hui MD Active ZALEPLON 10 MG CAPS 1 cap po every other night ZALEPLON 36417862806 No Longer Active Vishal Hui MD Active LYRICA 50 MG CAPS 1 tab po TID PREGABALIN 87893032195 No Longer Active Vishal Hui MD Active LORATADINE 10 MG TABS 1 tab po qd LORATADINE 10102675008 No Longer Active Vishal Hui MD Active VERAPAMIL HCL ER 180 MG CR-TABS 1 tab po bid VERAPAMIL HCL 60521007961 No Longer Active Vishal Hui MD Active MIRALAX POWD 1 capfull once daily POLYETHYLENE GLYCOL 3350 14467132755 No Longer Active Vishal Hui MD Active PREDNISONE 20 MG TABS 1 tab po qd PREDNISONE 38347187468 No Longer Active Renzo Thornton DO Active LEVOFLOXACIN 500 MG TABS 1 tab po qd LEVOFLOXACIN 82109001237 No Longer Active Renzo Thornton DO Active BUSPIRONE HCL 15 MG TABS 1 tab po TID BUSPIRONE HCL 45271108375 No Longer Active Renzo Thornton DO Active BENZTROPINE MESYLATE 1 MG TABS 1 tab po qd BENZTROPINE MESYLATE 14044986314 No Longer Active Renzo Thornton DO Active ATENOLOL 25 MG TABS 1 tab po qd ATENOLOL 59330407329 No Longer Active Renzo Thornton DO Active ESCITALOPRAM OXALATE 20 MG TABS 1 tab po qd ESCITALOPRAM OXALATE 88051266995 No Longer Active Renzo Thornton DO Active ADVAIR DISKUS 250-50 MCG/DOSE AEPB 1 puff BID FLUTICASONE-SALMETEROL 75944924960 No Longer Active Renzo Thornton DO Active PREDNISONE 20 MG TAB 2 tabs daily for 3 days, 1 tab daily for 3 days, 1/2 tab daily for 2 days PREDNISONE 92708666409 No Longer Active Vishal Hui MD Active CEFDINIR 300 MG CAPS by mouth twice a day CEFDINIR 87283560663 No Longer Active Vishal Hui MD Active LANSOPRAZOLE 30 MG CPDR 1 cap po qd LANSOPRAZOLE 93119736958 No Longer Active Vishal Hui MD Active BACLOFEN 20 MG TABS 1 tab po tid BACLOFEN 46997119366 No Longer Active Vishal Hui MD Active ADVAIR DISKUS 250-50 MCG/DOSE AEPB 1 puff BID ADVAIR DISKUS 250-50 MCG/DOSE AEPB FLUTICASONE-SALMETEROL Inactive ESCITALOPRAM OXALATE 20 MG TABS 1 tab po qd ESCITALOPRAM OXALATE 20 MG TABS 308828 ESCITALOPRAM OXALATE Inactive ATENOLOL 25 MG TABS 1 tab po qd ATENOLOL 25 MG TABS 084697 ATENOLOL Inactive BENZTROPINE MESYLATE 1 MG TABS 1 tab po qd BENZTROPINE MESYLATE 1 MG TABS 466838 BENZTROPINE MESYLATE Inactive BUSPIRONE HCL 15 MG TABS 1 tab po TID BUSPIRONE HCL 15 MG TABS 414754 BUSPIRONE HCL Inactive LEVOFLOXACIN 500 MG TABS 1 tab po qd LEVOFLOXACIN 500 MG TABS 779282 LEVOFLOXACIN Inactive PREDNISONE 20 MG TABS 1 tab po qd PREDNISONE 20 MG TABS 628626 PREDNISONE Inactive MIRALAX POWD 1 capfull once daily MIRALAX POWD 131519 POLYETHYLENE GLYCOL 3350 Inactive VERAPAMIL HCL ER 180 MG CR-TABS 1 tab po bid VERAPAMIL HCL ER 180 MG CR-TABS VERAPAMIL HCL Inactive LORATADINE 10 MG TABS 1 tab po qd LORATADINE 10 MG TABS 376105 LORATADINE Inactive LYRICA 50 MG CAPS 1 tab po TID LYRICA 50 MG CAPS PREGABALIN Inactive ZALEPLON 10 MG CAPS 1 cap po every other night ZALEPLON 10 MG CAPS 798407 ZALEPLON Inactive SAPHRIS 5 MG SUBL 1 tab po qd SAPHRIS 5 MG SUBL ASENAPINE MALEATE Inactive TRAZODONE HCL 50 MG TABS 1/2 tab po qd prn for anxiety TRAZODONE HCL 50 MG TABS 642421 TRAZODONE HCL Inactive LATUDA 20 MG TABS Take one by mouth daily LATUDA 20 MG TABS LURASIDONE HCL Inactive LISINOPRIL 20 MG TABS 1 tab po qd LISINOPRIL 20 MG TABS 739783 LISINOPRIL Inactive SAPHRIS 10 MG SUBL 1 [...] twice daily BACTRIM DS 800-160 MG TAB 235850 TRIMETHOPRIM-SULFAMETHOXAZOLE Inactive MULTIVITAMINS CAPS Take one by mouth daily MULTIVITAMINS CAPS MULTIPLE VITAMIN Inactive MELATONIN 3 MG CAPS 2 po q hs MELATONIN 3 MG CAPS 943827 MELATONIN Inactive KEFLEX 500 MG ORAL CAPS 1 cap QID by mouth KEFLEX 500 MG ORAL CAPS 338609 CEPHALEXIN Inactive CLINDAMYCIN HCL 150 MG CAPS 1 four times a day CLINDAMYCIN HCL 150 MG CAPS 468529 CLINDAMYCIN HCL Inactive DIFLUCAN 150 MG TAB 1 tablet by mouth daily DIFLUCAN 150 MG TAB 652506 FLUCONAZOLE Inactive PROZAC 20 MG CAP Take one by mouth daily PROZAC 20 MG CAP 681812 FLUOXETINE HCL Inactive IBUPROFEN 600 MG TAB 1 po TID PRN IBUPROFEN 600 MG TAB 530578 IBUPROFEN Inactive VYVANSE 40 MG CAPS 1 daily, VYVANSE 40 MG CAPS LISDEXAMFETAMINE DIMESYLATE Inactive TRAZODONE HCL 100 MG TAB take 1 at bedtime TRAZODONE HCL 100 MG TAB 745379 TRAZODONE HCL Inactive AMITRIPTYLINE HCL 100 MG TAB one at hs AMITRIPTYLINE HCL 100 MG TAB 833887 AMITRIPTYLINE HCL Inactive AMLODIPINE BESYLATE 5 MG TABS 1 tablet by mouth daily AMLODIPINE BESYLATE 5 MG TABS 602949 AMLODIPINE BESYLATE Inactive LATUDA 80 MG TABS Take one by mouth daily LATUDA 80 MG TABS LURASIDONE HCL Inactive SAPHRIS 5 MG SUBL 1 po bid SAPHRIS 5 MG SUBL ASENAPINE MALEATE Inactive PREDNISONE 20 MG TAB 2 tabs daily for 4 days, 1 tab daily for 4 days, 1/2 tab daily for 4 days PREDNISONE 20 MG TAB 070896 PREDNISONE Inactive AMBIEN 5 MG ORAL TABS 1 tab at bedtime AMBIEN 5 MG ORAL TABS 413577 ZOLPIDEM TARTRATE Inactive PROZAC 20 MG ORAL CAPS 1 tab daily PROZAC 20 MG ORAL CAPS 812676 FLUOXETINE HCL Inactive ABILIFY 15 MG ORAL TABS 1 tab daily ABILIFY 15 MG ORAL TABS 788059 ARIPIPRAZOLE Inactive METOPROLOL TARTRATE 50 MG TAB 1 po bid METOPROLOL TARTRATE 50 MG TAB 026551 METOPROLOL TARTRATE Inactive TRAMADOL HCL 50 MG TABS 1-2 po TID PRN Pain TRAMADOL HCL 50 MG TABS 173476 TRAMADOL HCL Inactive PIROXICAM 20 MG CAPS 1 cap po qd PRN Pain PIROXICAM 20 MG CAPS 050755 PIROXICAM Inactive MINIPRESS 2 MG CAPS 4 cap po at night MINIPRESS 2 MG CAPS 186030 PRAZOSIN HCL Inactive MIRALAX PACK 1 po qd PRN Constipation MIRALAX PACK 312592 POLYETHYLENE GLYCOL 3350 Inactive METOPROLOL TARTRATE 25 MG ORAL TABS 1/2 tablet twice daily for heart rate and blood pressure METOPROLOL TARTRATE 25 MG ORAL TABS 217621 METOPROLOL TARTRATE Inactive VALIUM 5 MG TAB Take 1-2 tablets daily VALIUM 5 MG TAB 771267 DIAZEPAM Inactive FLAGYL 500 MG TAB 1 tablet by mouth bid FLAGYL 500 MG TAB 570488 METRONIDAZOLE Inactive DICLOFENAC POTASSIUM TABS Take 1 tablet twice a day (pt. is not sure of the dose.) DICLOFENAC POTASSIUM TABS DICLOFENAC POTASSIUM TABS Inactive ZITHROMAX Z-EARNEST 250 MG TABS 2 today and then 1 daily for 4 days ZITHROMAX Z-EARNEST 250 MG TABS 7010914 AZITHROMYCIN Inactive PREDNISONE 20 MG TABS 2 daily for 5 days then 1 daily for 5 days PREDNISONE 20 MG TABS 342164 PREDNISONE Inactive PROAIR HFA 108 (90 BASE) MCG/ACT AERS 2 puffs four times a day as needed 2015 PROAIR HFA 108 (90 BASE) MCG/ACT AERS ALBUTEROL SULFATE Inactive HYDROCODONE-ACETAMINOPHEN 5-325 MG TABS 1 to 2 four times a day as needed for pain use until can be seen by specialist HYDROCODONE- ACETAMINOPHEN 5-325 MG TABS 452510 HYDROCODONE-ACETAMINOPHEN Inactive TESSALON PERLES 100 MG CAP 1 to 2 tablets by mouth 3 times daily as needed for cough TESSALON PERLES 100 MG CAP 291551 BENZONATATE Inactive CHANTIX STARTING MONTH EARNEST 0.5 [...] Pain 2015 DICLOFENAC SODIUM 50 MG TBEC 633699 DICLOFENAC SODIUM Inactive TOPAMAX 50 MG ORAL TABS 1 tab twice daily TOPAMAX 50 MG ORAL TABS 943885 TOPIRAMATE Inactive VIIBRYD 10 MG ORAL TABS Take 1 tablet once a day VIIBRYD 10 MG ORAL TABS VILAZODONE HCL Inactive LEVOFLOXACIN 500 MG ORAL TABS po daily LEVOFLOXACIN 500 MG ORAL TABS 948709 LEVOFLOXACIN Inactive METHYLPREDNISOLONE 4 MG ORAL TABS po daily METHYLPREDNISOLONE 4 MG ORAL TABS 007936 METHYLPREDNISOLONE Inactive OXYCODONE HCL ER 10 MG ORAL T12A 1/2 tab by mouth every 4 hours prn OXYCODONE HCL ER 10 MG ORAL T12A OXYCODONE HCL Inactive FLAGYL 500 MG TAB 1 tablet by mouth bid FLAGYL 500 MG TAB 080663 METRONIDAZOLE Inactive MONISTAT 7 COMBO PACK WOODROW 100 & 2 MG-% (9GM) VAG KIT 1 applicatorful per vagina q pm x 7 MONISTAT 7 COMBO PACK WOODROW 100 & 2 MG-% (9GM) VAG KIT MICONAZOLE NITRATE Inactive BACTRIM DS 800-160 MG TABS 1 twice a day BACTRIM DS 800-160 MG TABS 709085 SULFAMETHOXAZOLE-TRIMETHOPRIM Inactive TRAMADOL HCL 50 MG TABS 1/2-1 tab TID PRN TRAMADOL HCL 50 MG TABS 209615 TRAMADOL HCL Inactive ABILIFY MAINTENA 400 MG IM SUSR 400mg injection every 26 days ABILIFY MAINTENA 400 MG IM SUSR ARIPIPRAZOLE Inactive KLONOPIN 1 MG ORAL TABS 1 tab po TID KLONOPIN 1 MG ORAL TABS 238426 CLONAZEPAM Inactive ADVAIR DISKUS 250-50 MCG/DOSE INH AEPB 1 puff twice a day for asthma ADVAIR DISKUS 250-50 MCG/DOSE INH AEPB FLUTICASONE- SALMETEROL Inactive BENADRYL 25 MG CAP 4 po at bedtime for insomnia BENADRYL 25 MG CAP DIPHENHYDRAMINE HCL Inactive PREDNISONE 20 MG TABS 2 daily for 5 days then 1 daily for 5 days PREDNISONE 20 MG TABS 558854 PREDNISONE Inactive HYDROCODONE-ACETAMINOPHEN 5-325 MG ORAL TABS 1 tab two times a day HYDROCODONE-ACETAMINOPHEN 5-325 MG ORAL TABS 887173 HYDROCODONE-ACETAMINOPHEN Inactive ZITHROMAX Z-EARNEST 250 MG TABS 2 today and then 1 daily for 4 days ZITHROMAX Z-EARNEST 250 MG TABS 3291795 AZITHROMYCIN Inactive GUAIFENESIN-CODEINE 100-10 MG/5ML SYRP 5ml every 4 to 6 hours as needed for cough GUAIFENESIN-CODEINE 100-10 MG/5ML SYRP 319957 GUAIFENESIN-CODEINE Inactive HALOPERIDOL 10 MG ORAL TABS 1 tab q.d HALOPERIDOL 10 MG ORAL TABS 339368 HALOPERIDOL Inactive ASPIRIN 325 MG ORAL TABS 1 tab q.d ASPIRIN 325 MG ORAL TABS 740019 ASPIRIN Inactive FLUTICASONE PROPIONATE 50 MCG/ACT SUSP 2 sprays each nostril daily before bed. FLUTICASONE PROPIONATE 50 MCG/ACT SUSP 5164103 FLUTICASONE PROPIONATE Inactive ZOFRAN 4 MG TABS 1 po q6hr PRN Nausea ZOFRAN 4 MG TABS 914564 ONDANSETRON HCL Inactive KEFLEX 500 MG CAP 1 po qid KEFLEX 500 MG CAP 872583 CEPHALEXIN Inactive ACETAMINOPHEN-CODEINE 120-12 MG/5ML SOLN 5 ml by mouth every 4-6 hours if needed for cough ACETAMINOPHEN-CODEINE 120-12 MG/5ML SOLN 275619 ACETAMINOPHEN-CODEINE Inactive PREDNISONE 20 MG TAB 1 tablet daily x 4 days PREDNISONE 20 MG TAB 447707 PREDNISONE Inactive TROPICAMIDE 0.5 % OPHTH SOLN 1 drop PRN eye spasms TROPICAMIDE 0.5 % OPHTH SOLN 034694 TROPICAMIDE Inactive LEVAQUIN 500 MG TABS 1 daily for infection LEVAQUIN 500 MG TABS 967510 LEVOFLOXACIN Inactive PREDNISONE 10 MG TABS 2 daily for 5 days then 1 daily for 5 days PREDNISONE 10 MG TABS 355934 PREDNISONE Inactive EQ NICOTINE 21 MG/24HR TRANS [...] twice a day CEFDINIR 300 MG CAPS 932079 CEFDINIR Inactive PREDNISONE 20 MG TAB 2 tabs daily for 3 days, 1 tab daily for 3 days, 1/2 tab daily for 2 days PREDNISONE 20 MG TAB 467063 PREDNISONE Inactive BACTRIM DS 800-160 MG TABS 1 po BID x 7 days BACTRIM DS 800-160 MG TABS 19820521 SULFAMETHOXAZOLE-TRIMETHOPRIM Inactive DIFLUCAN 150 MG TABS 1 pill every other day x 2 doses DIFLUCAN 150 MG TABS [id number] FLUCONAZOLE Inactive BACTRIM DS 800-160 MG TABS 1 pill by mouth twice daily BACTRIM DS 800-160 MG TABS [id number] SULFAMETHOXAZOLE-TRIMETHOPRIM Inactive KEFLEX 500 MG CAP 1 po TID x 10 days KEFLEX 500 MG CAP [id number] CEPHALEXIN Inactive Advance Directives Directive Description Start [...] % 11.0-15.0 platelet count 443 THOUSAND/UL 10*3/mm3 620-959 8498/03/01 mean platelet volume 8.2 fL 7.5-12.5 leukocyte [...] % 11.0-15.0 platelet count 349 THOUSAND/UL 10*3/mm3 521-426 1874/04/12 mean platelet volume 8.4 fL 7.5-12.5 Lab [...] 369 10^3/MM^3 10*3/mm3 142-424 Lab Report: Chlamydia/GC [id number] - Lab chlamydia DNA probe NOT DETECTED NOT DETECTED Lab Report: Chlamydia/GC [id number] - Microbiology Neisseria gonorrhoeae DNA probe NOT DETECTED NOT DETECTED Lab Report: Chlamydia/GC [id number], Urinalysis, Complete, with Reflex ... - Lab chlamydia DNA probe NOT DETECTED NOT DETECTED Lab Report: Chlamydia/GC [id number]/[id number], Urinalysis, Complete, with Reflex ... - Microbiology Neisseria gonorrhoeae DNA probe NOT DETECTED NOT DETECTED Lab Report: Chlamydia/GC APTIMA/15753, Urinalysis, Complete, with Reflex ... - Urinalysis microalbumin/total urine volume 2 mg/L Units converted. See lab report for original value. microalbumin/creatinine ratio, urine 9 MCG/MG CREAT mg/L <30 Lab Report: Comp. Metabolic Panel - Chemistry sodium, serum 140 mmol/L [id number] 2280/08/08 carbon dioxide, venous blood 33.7 mmol/L 21.0-32.0 [...] Trace Negative nitrite, urine, semiquantitative Negative Negative Encounters Code Encounter Date Provider Facility CPT-51237 Level 4 Est. Patient 10:49:34 CDT Suzan Boo [facility] CPT-45059 Level 3 Est. Patient 10:00:25 CDT Suzan Boo [facility] CPT-46380 Level 3 Est. Patient 10:29:30 CDT Suzan Boo [facility] CPT-53276 Level 3 Est. Patient 11:04:38 CDT Renzo Jenn Norberto [facility] [address] CPT-68776 Level 3 Est. Patient 11:15:58 WASTE DUSTER Renzo Jenn Thornton [facility] [address] CPT-52759 Level 3 Est. Patient 15:28:23 WASTE DUSTER Suzan Boo [facility] CPT-93813 Level 4 Est. Patient 10:20:54 WASTE DUSTER Suzan Boo [facility]-32979 Level 3 Est. Patient 11:47:37 WASTE DUSTER Ahmet Carbajal MD [facility]-87487 Level 3 Est. Patient 10:40:11 WASTE DUSTER Ahmet Carbajal MD [facility] CPT-48838 Level 3 Est. Patient 15:07:06 WASTE DUSTER Neeraj Collins MD [facility] CPT-25793 Level 4 Est. Patient 14:45:00 WASTE DUSTER Ahmet Carbajal MD [facility] CPT-93212 Level 3 Est. Patient 13:59:59 CDT Luigi Martínez [facility] CPT-22028 Level 3 Est. Patient 18:18:53 CDT Neeraj Collins MD [facility] CPT-20162 Level 3 Est. Patient 15:50:44 CDT Vishal Hui MD [facility]-22081 Level 3 Est. Patient 11:36:17 CDT Ahmet Carbajal MD [facility] CPT-87665 Level 3 Est. Patient 13:29:16 CDT Vishal Hui MD [facility] CPT-05652 Level 3 Est. Patient 14:27:52 CDT Neeraj Collins MD [facility] CPT-24885 Level 3 Est. Patient 08:56:03 CDT Luigi Martínez [facility] CPT-08797 Level 4 Est. Patient 12:11:48 CDT Fabiola Johnson [facility] CPT-23485 Level 3 New Patient 16:53:37 CDT Albert Caldera MD [facility] CPT-21823 Level 3 Est. Patient 11:25:49 CDT Renzo Thornton DO [facility] CPT-18611 Level 3 Est. Patient 15:22:01 CDT Ahmet Carbajal MD [facility] CPT-34865 Level 4 Est. Patient 09:00:51 WASTE DUSTER Vishal Hui MD [facility] CPT-10777 Level 3 Est. Patient 11:37:33 WASTE DUSTER Vishal Hui MD [facility] CPT-64034 Level 3 Est. Patient 08:41:09 WASTE DUSTER Vishal Hui MD [facility] CPT-33447 Level 4 Est. Patient 10:19:35 WASTE DUSTER Vishal Hui MD [facility] CPT-53381 Level 3 Est. Patient 13:35:45 CDT Vishal Hui MD [facility] CPT-33535 Level 4 Est. Patient 10:08:37 CDT Vishal Hui MD [facility] CPT-70148 Level 3 Est. Patient 11:22:10 CDT Vishal Hui MD [facility] CPT-55109 Level 3 Est. Patient 11:03:32 CDT Sahara Rodriguez MD [facility] CPT-21829 Level 3 Est. Patient 09:41:35 CDT Vishal Hui MD [facility] CPT-41152 Level 3 Est. Patient 12:00:41 CDT Neeraj Collins MD [facility] CPT-60918 Level 3 Est. Patient 09:16:24 CDT Vishal Hui MD [facility] CPT-63430 Level 4 Est. Patient 13:59:09 CDT Neeraj Collins MD [facility] CPT-26730 Level 3 Est. Patient 15:19:43 CDT Renzo Thornton [facility] CPT-97692 Level 3 Est. Patient 18:10:26 CDT Sahara Rodriguez MD [facility] CPT-43913 Level 3 Est. Patient 14:49:50 CDT Vishal Hui MD [facility]-09317 Level 4 Est. Patient 18:41:46 CDT Neeraj Collins MD [facility] CPT-07312 Level 4 Est. Patient 09:18:38 WASTE DUSTER Vishal Hui MD [facility] CPT-37746 Level 3 Est. Patient 14:43:55 WASTE DUSTER Vishal Hui MD [facility] CPT-26623 Level 3 Est. Patient 15:26:33 WASTE DUSTER Sahara Rodriguez MD [facility]-51541 Level 3 Est. Patient 10:32:14 WASTE DUSTER Vishal Hui MD [facility] CPT-20802 Level 3 Est. Patient 15:12:52 WASTE DUSTER Vishal Hui MD [facility] CPT-60068 Level 4 Est. Patient 09:19:27 CDT Vishal Hui MD [facility] CPT-55157 Level 3 Est. Patient 15:53:00 CDT Renzo Thornton [facility]-70311 Level 3 Est. Patient 15:50:30 CDT Renzo Thornton [facility] CPT-84959 Level 3 Est. Patient 16:55:24 CDT Vishal Hui MD [facility] Procedures Code Procedure Name Date Entry Date Standard Description CPT-19653 Venipuncture Draw Fee 08:41:12 CDT CPT-87492 Abd compl w upright - XRAY USE ONLY 10:27:59 CDT 06/28 CPT-66041 Smoking Cessation counseling 11:15:58 WASTE DUSTER CPT-G0439 Subsequent Annual Wellness Exam 09:30:58 WASTE DUSTER CPT-15686 TSH - LAB USE ONLY 08:50:26 WASTE DUSTER CPT-78947 CBC - LAB USE ONLY 08:50:26 WASTE DUSTER CPT-52439 Venipuncture Draw Fee 08:50:26 WASTE DUSTER CPT-20481 Abx/Therapy Injection 17:34:30 WASTE DUSTER CPT-68073 Nexplanon Removal with Reinsertion 14:09:32 CDT CPT-J7307 Nexplanon (Implant) 14:09:32 CDT CPT-OV Office Visit 14:09:32 CDT CPT-50171 UA w micro - LAB USE ONLY 16:21:13 CDT CPT-32642 Wet Mount - LAB USE ONLY 16:21:13 CDT CPT-22803 First Vx - Ix admin for Medicare patients 14:37:47 CDT CPT-75825 Fluzone Preservative Free Intramuscular Suspension 14:37 :47 CDT CPT-40577 Abx/Therapy Injection 13:54:22 CDT CPT-63636 Abx/Therapy Injection 08:47:09 CDT CPT-06241 Abx/Therapy Injection 13:29:56 CDT CPT-51783 Abx/Therapy Injection 08:36:16 CDT CPT-94932 Wet Mount - LAB USE ONLY 17:44:58 CDT CPT-68545 UA w micro - LAB USE ONLY 17:44:58 CDT CPT-05987 CMP - LAB USE ONLY 17:44:58 CDT CPT-95268 Venipuncture Draw Fee 17:44:58 CDT CPT-18969 Cervical Min 4V - XRAY USE ONLY 09:01:40 CDT CPT-46513 Chest 2V Frontal and Lat - XRAY USE ONLY 11:06:31 CDT CPT-70248 EKG Trac and Interp - XRAY USE ONLY 11:31:43 CDT 08/26 CPT-J3420 Vitamin B12 1000mcg (Cyanocobalamin) 08:10:26 WASTE DUSTER 04/12 CPT-50413 Abx/Therapy Injection 08:10:26 WASTE DUSTER CPT-G0438 Initial Annual Wellness Exam 19:01:01 WASTE DUSTER CPT-J3420 Vitamin B12 1000mcg (Cyanocobalamin) 16:57:46 CDT 08/14 CPT-30427 Recombivax HB Injection Suspension 5 MCG/0.5ML 08:37:50 WASTE DUSTER CPT-35015 Immunization Single Admin 08:37:50 WASTE DUSTER CPT-J3420 Vitamin B12 1000mcg (Cyanocobalamin) 08:32:16 WASTE DUSTER 03/11 CPT-08010 Abx/Therapy Injection 08:32:16 WASTE DUSTER CPT-31677 Chest 2V Frontal and Lat 11:46:38 WASTE DUSTER CPT-16636 Venipuncture Draw Fee 09:12:45 WASTE DUSTER CPT-J3420 Vitamin B12 1000mcg (Cyanocobalamin) 08:50:15 WASTE DUSTER 02/08 CPT-87880 Abx/Therapy Injection 08:50:15 WASTE DUSTER CPT-Cryo Cryotherapy 10:19:35 WASTE DUSTER CPT-000 Give Appropriate Flu Vaccine 09:22:16 CDT CPT-J3420 Vitamin B12 1000mcg (Cyanocobalamin) 19:08:57 CDT 01/11 CPT-39399 Abx/Therapy Injection 19:08:57 CDT CPT-J3420 Vitamin B12 1000mcg (Cyanocobalamin) 08:19:08 CDT 12/11 CPT-69383 Abx/Therapy Injection 08:19:08 CDT CPT-J3420 Vitamin B12 1000mcg (Cyanocobalamin) 14:48:00 CDT 11/09 CPT-93420 Abx/Therapy Injection 14:47:59 CDT CPT-J3420 Vitamin B12 1000mcg (Cyanocobalamin) 08:34:04 CDT 10/09 CPT-15977 Abx/Therapy Injection 08:34:04 CDT CPT-J3420 Vitamin B12 1000mcg (Cyanocobalamin) 09:18:52 CDT 09/11 CPT-63623 Abx/Therapy Injection 09:18:52 CDT CPT-J3420 Vitamin B12 1000mcg (Cyanocobalamin) 08:35:44 CDT 09/04 CPT-73517 Abx/Therapy Injection 08:35:44 CDT CPT-62070 Immunization Single Admin 11:07:16 CDT CPT-92614 Hepatitis B adult IM 11:07:16 CDT CPT-J3420 Vitamin B12 1000mcg (Cyanocobalamin) 11:00:49 CDT 08/28 CPT-J1040 Depo Medrol 80 mg (Methyl Prednisolone Acetate) 11:00: 49 CDT CPT-71205 Abx/Therapy Injection 11:00:49 CDT CPT-J1040 Depo Medrol 80 mg (Methyl Prednisolone Acetate) 09:16: 23 CDT CPT-J3420 Vitamin B12 1000mcg (Cyanocobalamin) 08:27:05 CDT 08/20 CPT-46364 Abx/Therapy Injection 08:27:05 CDT CPT-70222 Recombivax HB Injection Suspension 5 MCG/0.5ML 10:00:41 CDT CPT-19764 Administration single or combination vaccine inc oral 10 :00:41 CDT CPT-87783 Sono transvag pelvis non OB uterus ovaries cervix 16:36: 57 CDT CPT-55947 LS spine comp w obliq 09:50:55 WASTE DUSTER CPT-91244 Abd compl w upright 09:50:55 WASTE DUSTER CPT-J1100 Decadron 4mg (Dexamethasone) 15:51:24 WASTE DUSTER CPT-J1030 Depo Medrol 40 mg (Methyl Prednisolone Acetate) 15:51: 24 WASTE DUSTER CPT-21771 Abx/Therapy Injection 15:51:24 WASTE DUSTER CPT-J1100 Decadron 4mg (Dexamethasone) 15:26:33 WASTE DUSTER CPT-J1030 Depo Medrol 40 mg (Methyl Prednisolone Acetate) 15:26: 33 WASTE DUSTER CPT-53064 Sono retroperitoneal complete kidneys and bladder 17:15: 30 CDT CPT-27004 Abd compl w upright 16:09:25 CDT CPT-J1100 Decadron 8mg (Dexamethasone) 17:07:57 CDT CPT-54699 Abx/Therapy Injection 17:07:57 CDT CPT-J1100 Decadron 8mg (Dexamethasone) 16:55:24 CDT CPT-10102 Chest 2V Frontal and Lat 16:32:44 CDT
--- OUTSIDE RECORDS SUMMARY | 2016-11-04 19:21 | XMS REPORT ---
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 PRE AND POSTCONTRAST MAGNETIC RESONANCE IMAGING LUMBAR [id number] HOURS Pre and postcontrast imaging of the [...] compression deformity of T12. Fredy Tadeo MD MWD/tx08/31/2014 12:11:00 / 08/31/2014 13:02:35 cc:Dr. Vishal Abrams This document has been electronically Signed by: On: DATE OF EXAM: Aug 31 2014 MRI 0077-MRI L SPINE W/WO CONTRAST : RADIOLOGY REPORT DATE OF SERVICE: 08/31/14 HISTORY: Severe back pain and bilateral lower extremity pain and spasms. PRE AND POSTCONTRAST MAGNETIC RESONANCE IMAGING LUMBAR [id number] HOURS Pre and postcontrast imaging of the [...] compression deformity of T12. Fredy Tadeo MD MWD/tx08/31/2014 12:11:00 / 08/31/2014 13:02:35 cc:Dr. Vishal Abrams This document has been electronically Signed by: FREDY TADEO On: Aug 31 20142:12P Result Amended on 2014-08-31 at 14:12:07. Previous status was [place]. History of procedures No procedures recorded for [...]
--- OUTSIDE RECORDS SUMMARY | 2016-11-04 19:25 | XMS REPORT | Clinical Summary ---
Author Author Admin, E Organization [employer] Address Unknown Phone Unavailable Allergies, Adverse [...] of unspecified sites Pelvic pain 625.9 Resolved Vishla Hui MD Unspecified symptom associated with female [...] sites Morbid obesity 278.01 Active Juliet Kimbrough WEB SITE DESIGNER Morbid obesity 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 Active Juliet Kimbrough WEB SITE DESIGNER Dependence on other enabling machines and devices [...] Active Ahmet Carbajal MD Generalized anxiety disorder Litigation Legal Secretary well woman exam V72.31 Resolved Suzan Boo APRN Routine gynecological examination Bronchitis, acute with mild bronchospasm 466.0 Resolved Suzan Boo APRN Acute bronchitis Fibrocystic breast changes 610.1 Active Suzan Boo APRN Diffuse cystic 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 Suzna Boo APRN Other specified conditions influencing health [...] fracture with routine healing Inactive Suzan Boo WEB SITE DESIGNER Bronchitis, acute ICD-466.0 Inactive Ahmet Carbajal MD Litigation Legal Secretary well woman exam ICD-V72.31 Inactive Suzan Boo WEB SITE DESIGNER Bronchitis, acute with mild bronchospasm ICD-466.0 Inactive Suzanthuy Boo WEB SITE DESIGNER Tracheitis ICD-464.10 Inactive Suzan Boo WEB SITE DESIGNER Impetigo ICD-684 Inactive Suzan Boo WEB SITE DESIGNER Furuncle of buttock ICD-680.5 Inactive Suzan Boo WEB SITE DESIGNER Vaginal irritation ICD-623.9 Inactive Suzan Boo WEB SITE DESIGNER Scalding pain on urination ICD-788.1 Inactive Suzan Boo WEB SITE DESIGNER Abdominal pain, right upper quadrant ICD-789.01 Inactive Suzan Boo WEB SITE DESIGNER Dark urine ICD-791.9 Inactive Suzan Boo APRN Preop exam ICD-V72.84 Inactive Suzan Boo WEB SITE DESIGNER Medication List Medication Instructions Start Date Stop Date Generic Name NDC Status Provider Patient Instruction [id number] 50-325-40 MG TABS 1 to 2 four times a day as needed for headache [id number] 66419910174 Active Suzan Boo WEB SITE DESIGNER Active METOCLOPRAMIDE HCL 10 MG TABS 1 two times as needed for nausea and headaches METOCLOPRAMIDE HCL 18182849210 Active Suzan Boo APRN Active NYSTATIN 501212 UNIT/GM CREA apply three times a day to yeast rash NYSTATIN 61310590425 Active Suzan Boo APRN Active AMITIZA 24 MCG ORAL CAPS one capsule twice daily LUBIPROSTONE 39608833890 Active Suzan Boo APRN Active MIRALAX ORAL POWD 17GMS DAILY IN WATER POLYETHYLENE GLYCOL 3350 25799356460 No Longer Active Suzan Boo APRN Active LACTULOSE 10 GM/15ML ORAL SOLN 30mL oral BID for IBS-C LACTULOSE 62526159212 No Longer Active Suzan Boo APRN Active BACTRIM DS 800-160 MG TAB Take one (1) tablet by mouth twice a day for 5 days TRIMETHOPRIM-SULFAMETHOXAZOLE 29156703616 No Longer Active Suzan Boo APRN Active MUPIROCIN 2 % OINT apply twice a day MUPIROCIN 38827228427 No Longer Active Suzan Boo APRN Active BACTRIM DS 800-160 MG TABS 1 twice a day SULFAMETHOXAZOLE-TRIMETHOPRIM 73833826848 No Longer Active Suzan Boo APRN Active DIFLUCAN 150 MG TABS 1 by mouth for yeast FLUCONAZOLE 75565626080 No Longer Active Suzan Boo APRN Active LINZESS 290 MCG ORAL CAPS 1 tab 30 min prior to first meal each day. LINACLOTIDE 36395724723 No Longer Active Sheila Calderon WINDOW TRIMMER APPRENTICE Active AMITIZA 8 MCG ORAL CAPS 1 tab BID LUBIPROSTONE 10977087289 No Longer Active Lynda Madl WINDOW TRIMMER APPRENTICE Active TESSALON PERLES 100 MG CAPS 1 three times a day as needed for cough BENZONATATE 10198059204 No Longer Active Suzan Boo APRN Active BACTRIM DS 800-160 MG TABS 1 twice a day SULFAMETHOXAZOLE-TRIMETHOPRIM 14542182590 No Longer Active Suzan Boo APRN Active DIFLUCAN 150 MG TABS 1 by mouth for yeast FLUCONAZOLE 80283438274 No Longer Active Suzan Boo APRN Active EQ NICOTINE 21 MG/24HR TRANS PT24 Apply daily to stop smoking NICOTINE 51379067472 No Longer Active Suzan Boo APRN Active PREDNISONE 10 MG TABS 2 daily for 5 days then 1 daily for 5 days PREDNISONE 63046695391 No Longer Active Suzan Boo APRN Active LEVAQUIN 500 MG TABS 1 daily for infection LEVOFLOXACIN 02820392613 No Longer Active Suzan Boo APRN Active TROPICAMIDE 0.5 % OPHTH SOLN 1 drop PRN eye spasms TROPICAMIDE 29992989899 No Longer Active Suzan Boo APRN Active PREDNISONE 20 MG TAB 1 tablet daily x 4 days PREDNISONE 86805109609 No Longer Active Suzan Boo APRN Active ACETAMINOPHEN-CODEINE 120-12 MG/5ML SOLN 5 ml by mouth every 4-6 hours if needed for cough ACETAMINOPHEN-CODEINE 37754557659 No Longer Active Suzan Boo APRN Active KEFLEX 500 MG CAP 1 po qid CEPHALEXIN 46563390193 No Longer Active Suzan Boo APRN Active FLOVENT HFA 110 MCG/ACT AERO 2 puffs inhaled b.i.d. FLUTICASONE PROPIONATE HFA 11753431390 Active Renzo Thornton DO Active RISPERDAL 4 MG ORAL TABS 1 tab at bedtime RISPERIDONE 72593468560 Active Samantha Rothman RMA Active ZOFRAN 4 MG TABS 1 po q6hr PRN Nausea ONDANSETRON HCL No Longer Active Suzan Boo APRN Active FLUTICASONE PROPIONATE 50 MCG/ACT SUSP 2 sprays each nostril daily before bed. FLUTICASONE PROPIONATE 05987354919 No Longer Active Suzan Boo APRN Active ASPIRIN 325 MG ORAL TABS 1 tab q.d ASPIRIN 83463215850 No Longer Active Suzan Boo APRN Active HALOPERIDOL 10 MG ORAL TABS 1 tab q.d HALOPERIDOL 40939370995 No Longer Active Suzan Boo APRN Active GUAIFENESIN-CODEINE 100-10 MG/5ML SYRP 5ml every 4 to 6 hours as needed for cough GUAIFENESIN-CODEINE 33574970166 No Longer Active Suzan Boo APRN Active ZITHROMAX Z-ERANEST 250 MG TABS 2 today and then 1 daily for 4 days AZITHROMYCIN 68155582270 No Longer Active Suzan Boo APRN Active CLONAZEPAM 1 MG ORAL TABS 1 twice a day and an additional 1 tablet every other day as needed for pseudoseizures or anxiety CLONAZEPAM 06206016827 Active Suzan Boo APRN Active HYDROCODONE-ACETAMINOPHEN 5-325 MG ORAL TABS 1 tab two times a day HYDROCODONE-ACETAMINOPHEN 92517035256 No Longer Active Ahmet Carbajal MD Active LAMICTAL 100 MG ORAL TABS 1 tab 2 times qd. LAMOTRIGINE 64029175355 Active Ahmet Carbajal MD Active PREDNISONE 20 MG TABS 2 daily for 5 days then 1 daily for 5 days PREDNISONE 73329428240 No Longer Active Ahmet Carbajal MD Active FLUTICASONE PROPIONATE 50 MCG/ACT SUSP 1 to 2 sprays each nostril daily for allergies FLUTICASONE PROPIONATE 89020969607 Active Tila Valenzuela Active BENADRYL 25 MG CAP 4 po at bedtime for insomnia DIPHENHYDRAMINE HCL 53314090490 No Longer Active Ahmet Carbajal MD Active ADVAIR DISKUS 250-50 MCG/DOSE INH AEPB 1 puff twice a day for asthma FLUTICASONE-SALMETEROL 18326778959 No Longer Active Ahmet Carbajal MD Active KLONOPIN 1 MG ORAL TABS 1 tab po TID CLONAZEPAM 87467365484 No Longer Active Ahmet Carbajal MD Active ABILIFY MAINTENA 400 MG IM SUSR 400mg injection every 26 days ARIPIPRAZOLE 36144708159 No Longer Active Ahmet Carbajal MD Active TRAMADOL HCL 50 MG TABS 1/2-1 tab TID PRN TRAMADOL HCL 82257006056 No Longer Active Ahmet Carbajal MD Active BACTRIM DS 800-160 MG TABS 1 twice a day SULFAMETHOXAZOLE- TRIMETHOPRIM 64684326515 No Longer Active Ahmet Carbajal MD Active PROAIR HFA 108 (90 BASE) MCG/ACT AERS 2 puffs four times a day as needed 2015 ALBUTEROL SULFATE 96534408015 Active Honey Hinton WEB SITE DESIGNER Active MONISTAT 7 COMBO PACK WOODROW 100 & 2 MG-% (9GM) VAG KIT 1 applicatorful per vagina q pm x 7 MICONAZOLE NITRATE 67977899417 No Longer Active Ahmet Carbajal MD Active FLAGYL 500 MG TAB 1 tablet by mouth bid METRONIDAZOLE 00780118744 No Longer Active Ahmet Carbajal MD Active OXYCODONE HCL ER 10 MG ORAL T12A 1/2 tab by mouth every 4 hours prn OXYCODONE HCL 15568336289 No Longer Active Ahmet Carbajal MD Active METHYLPREDNISOLONE 4 MG ORAL TABS po daily METHYLPREDNISOLONE 39446829385 No Longer Active Ahmet Carbajal MD Active LEVOFLOXACIN 500 MG ORAL TABS po daily LEVOFLOXACIN 65694537971 No Longer Active Ahmet Carbajal MD Active VIIBRYD 10 MG ORAL TABS Take 1 tablet once a day VILAZODONE HCL 30595357244 No Longer Active Ahmet Carbajal MD Active TOPAMAX 50 MG ORAL TABS 1 tab twice daily TOPIRAMATE 81678046196 No Longer Active Ahmet Carbajal MD Active DICLOFENAC SODIUM 50 MG TBEC 1 tablet by mouth four times daily PRN Pain 2015 DICLOFENAC SODIUM 12797016055 No Longer Active Ahmet Carbajal MD Active ADZENYS XR-ODT 6.3 MG ORAL TBED 1 tab po daily for ADHD AMPHETAMINE 97138669375 No Longer Active Ahmet Carbajal MD Active CHANTIX 1 MG TABS 1 twice a day to help quit smoking VARENICLINE TARTRATE 12434307263 No Longer Active Dipika Burgos MD Active CHANTIX STARTING MONTH EARNEST 0.5 MG X 11 & 1 MG X 42 TABS take as directed 2015 VARENICLINE TARTRATE 14709481814 No Longer Active Dipika Burgos MD Active TESSALON PERLES 100 MG CAP 1 to 2 tablets by mouth 3 times daily as needed for cough BENZONATATE 84040672068 No Longer Active Luigi Martínez WEB SITE DESIGNER Active IMITREX 50 MG ORAL TABS 0.5 po x 1 PRN Headache. May repeat dose x 1 in 2 hours if needed SUMATRIPTAN SUCCINATE 21905939940 Active TAMARA Casey Active HYDROCODONE-ACETAMINOPHEN 5-325 MG TABS 1 to 2 four times a day as needed for pain use until can be seen by specialist HYDROCODONE- ACETAMINOPHEN 43661204870 No Longer Active Vishal Hui MD Active PROAIR HFA 108 (90 BASE) MCG/ACT AERS 2 puffs four times a day as needed 2015 ALBUTEROL SULFATE 94705626260 No Longer Active Vishal Hui MD Active PREDNISONE 20 MG TABS 2 daily for 5 days then 1 daily for 5 days PREDNISONE 00310102192 No Longer Active Vishal Hui MD Active ZITHROMAX Z-EARNEST 250 MG TABS 2 today and then 1 daily for 4 days AZITHROMYCIN 84679926698 No Longer Active Vishal Hui MD Active DICLOFENAC POTASSIUM TABS Take 1 tablet twice a day (pt. is not sure of the dose.) DICLOFENAC POTASSIUM TABS 24589311045 No Longer Active Vishal Hui MD Active VERAPAMIL HCL ER 120 MG ORAL CR-TABS Take 1 tablet by mouth twice a day. VERAPAMIL HCL 86186935364 Active Vishal Hui MD Active FLAGYL 500 MG TAB 1 tablet by mouth bid METRONIDAZOLE 65095179523 No Longer Active Vishal Hui MD Active VALIUM 5 MG TAB Take 1-2 tablets daily DIAZEPAM 62772812914 No Longer Active Fabiola Johnson APRN Active METOPROLOL TARTRATE 25 MG ORAL TABS 1/2 tablet twice daily for heart rate and blood pressure METOPROLOL TARTRATE 70745017986 No Longer Active Fabiola Johnson APRN Active MIRALAX PACK 1 po qd PRN Constipation POLYETHYLENE GLYCOL 3350 32225764738 No Longer Active Ahmet Carbajal MD Active MINIPRESS 2 MG CAPS 4 cap po at night PRAZOSIN HCL 67166478795 No Longer Active Ahmet Carbajal MD Active PIROXICAM 20 MG CAPS 1 cap po qd PRN Pain PIROXICAM 09423159268 No Longer Active Ahmet Carbajal MD Active TRAMADOL HCL 50 MG TABS 1-2 po TID PRN Pain TRAMADOL HCL 64485313464 No Longer Active Ahmet Carbajal MD Active METOPROLOL TARTRATE 50 MG TAB 1 po bid METOPROLOL TARTRATE 38183294945 No Longer Active Ahmet Carbajal MD Active ABILIFY 15 MG ORAL TABS 1 tab daily ARIPIPRAZOLE 61215741452 No Longer Active Ahmet Carbajal MD Active PROZAC 20 MG ORAL CAPS 1 tab daily FLUOXETINE HCL 62070957846 No Longer Active Ahmet Carbajal MD Active AMBIEN 5 MG ORAL TABS 1 tab at bedtime ZOLPIDEM TARTRATE 59289234969 No Longer Active Ahmet Carbajal MD Active PREDNISONE 20 MG TAB 2 tabs daily for 4 days, 1 tab daily for 4 days, 1/2 tab daily for 4 days PREDNISONE 43688432876 No Longer Active Ahmet Carbajal MD Active KEFLEX 500 MG CAP 1 po TID x 10 days CEPHALEXIN 47960047856 No Longer Active Vishal Hui MD Active SAPHRIS 5 MG SUBL 1 po bid ASENAPINE MALEATE 28541738484 No Longer Active Jillina Mauricio WEB SITE DESIGNER Active LATUDA 80 MG TABS Take one by mouth daily LURASIDONE HCL 49429218365 No Longer Active Jillina Fralebron WEB SITE DESIGNER Active AMLODIPINE BESYLATE 5 MG TABS 1 tablet by mouth daily AMLODIPINE BESYLATE 68035419869 No Longer Active Jillina Fralebron WALTERSN Active AMITRIPTYLINE HCL 100 MG TAB one at hs AMITRIPTYLINE HCL 20533108093 No Longer Active Vishal Hui MD Active TRAZODONE HCL 100 MG TAB take 1 at bedtime TRAZODONE HCL 33460005217 No Longer Active Vishal Hui MD Active VYVANSE 40 MG CAPS 1 daily, LISDEXAMFETAMINE DIMESYLATE 67608652825 No Longer Active Vishal Hui MD Active IBUPROFEN 600 MG TAB 1 po TID PRN IBUPROFEN 06347403232 No Longer Active Vishal Hui MD Active PROZAC 20 MG CAP Take one by mouth daily FLUOXETINE HCL 52216917788 No Longer Active Vishal Hui MD Active BACTRIM DS 800-160 MG TABS 1 pill by mouth twice daily SULFAMETHOXAZOLE-TRIMETHOPRIM 31900706642 No Longer Active Sahara Rodriguez MD PhD Active DIFLUCAN 150 MG TAB 1 tablet by mouth daily FLUCONAZOLE 98197226838 No Longer Active Vishal Hui MD Active TIZANIDINE HCL 4 MG TABS 1 po q6hr PRN Muscle Spasm/Back Pain TIZANIDINE HCL 04502004557 Active TAMARA Casey Active CLINDAMYCIN HCL 150 MG CAPS 1 four times a day CLINDAMYCIN HCL 92276323864 No Longer Active Neeraj Collins MD Active KEFLEX 500 MG ORAL CAPS 1 cap QID by mouth CEPHALEXIN 73057630335 No Longer Active Neeraj Collins MD Active DIFLUCAN 150 MG TABS 1 pill every other day x 2 doses FLUCONAZOLE 31671467273 No Longer Active Sahara Rodriguez MD PhD Active MELATONIN 3 MG CAPS 2 po q hs MELATONIN 61799020635 No Longer Active Sahara Rodriguez MD PhD Active MULTIVITAMINS CAPS Take one by mouth daily MULTIPLE VITAMIN 17549205652 No Longer Active Sahara Rodriguez MD PhD Active BACTRIM DS 800-160 MG TAB 1 tab by mouth twice daily TRIMETHOPRIM-SULFAMETHOXAZOLE 81416678244 No Longer Active Sahara Rodriguez MD PhD Active [facility] PROBIOTIC ORAL CHEW 2 daily po PROBIOTIC PRODUCT 33473589796 No Longer Active Sahara Rodriguez MD PhD Active BACTRIM DS 800-160 MG TABS 1 po BID x 7 days SULFAMETHOXAZOLE-TRIMETHOPRIM 23150985043 No Longer Active Vishal Hui MD Active CHANTIX STARTING MONTH EARNEST 0.5 MG X 11 & 1 MG X 42 TABS 0.5mg daily for 3 days , then 0.5mg BID for 4 days, then 1mg BID VARENICLINE TARTRATE 76628084789 No Longer Active TAMARA Gray Active VERAPAMIL HCL CR 120 MG TAB CR 1 po bid VERAPAMIL HCL 93205863523 No Longer Active Vishal Hui MD Active METOPROLOL SUCCINATE 50 MG TB24 1 tablet by mouth daily METOPROLOL SUCCINATE 38719681201 No Longer Active Vishal Hui MD Active SAPHRIS 10 MG SUBL 1 tab po bid ASENAPINE MALEATE 68120556387 No Longer Active Vishal Hui MD Active LISINOPRIL 20 MG TABS 1 tab po qd LISINOPRIL 24458257014 No Longer Active Vishal Hui MD Active LATUDA 20 MG TABS Take one by mouth daily LURASIDONE HCL 84054651670 No Longer Active Vishal Hui MD Active TRAZODONE HCL 50 MG TABS 1/2 tab po qd prn for anxiety TRAZODONE HCL 75418912702 No Longer Active Vishal Hui MD Active OMEPRAZOLE 20 MG TBEC 1 po q a.m. 30min prior to first food intake OMEPRAZOLE 78694359454 Active TAMARA Casey Active RANITIDINE HCL 150 MG CAPS 1 twice a day RANITIDINE HCL 37238398990 Active Lynda Xiao LPN Active LINZESS 290 MCG CAPS Take one by mouth daily LINACLOTIDE 75101968237 No Longer Active Vishal Hui MD Active SAPHRIS 5 MG SUBL 1 tab po qd ASENAPINE MALEATE 01391093287 No Longer Active Vishal Hui MD Active ZALEPLON 10 MG CAPS 1 cap po every other night ZALEPLON 68515948670 No Longer Active Vishal Hui MD Active LYRICA 50 MG CAPS 1 tab po TID PREGABALIN 28964344832 No Longer Active Vishal Hui MD Active LORATADINE 10 MG TABS 1 tab po qd LORATADINE 17913932524 No Longer Active Vishal Hui MD Active VERAPAMIL HCL ER 180 MG CR-TABS 1 tab po bid VERAPAMIL HCL 80293794708 No Longer Active Vishal Hui MD Active MIRALAX POWD 1 capfull once daily POLYETHYLENE GLYCOL 3350 09437653844 No Longer Active Vishal Hui MD Active PREDNISONE 20 MG TABS 1 tab po qd PREDNISONE 80726824191 No Longer Active Renzo Thornton DO Active LEVOFLOXACIN 500 MG TABS 1 tab po qd LEVOFLOXACIN 56285943426 No Longer Active Renzo Thornton DO Active BUSPIRONE HCL 15 MG TABS 1 tab po TID BUSPIRONE HCL 77127238692 No Longer Active Renzo Thornton DO Active BENZTROPINE MESYLATE 1 MG TABS 1 tab po qd BENZTROPINE MESYLATE 19665818086 No Longer Active Renzo Thornton DO Active ATENOLOL 25 MG TABS 1 tab po qd ATENOLOL 27473920952 No Longer Active Renzo Thornton DO Active ESCITALOPRAM OXALATE 20 MG TABS 1 tab po qd ESCITALOPRAM OXALATE 37292519272 No Longer Active Renzo Thornton DO Active ADVAIR DISKUS 250-50 MCG/DOSE AEPB 1 puff BID FLUTICASONE-SALMETEROL 37158447489 No Longer Active Renzo Thornton DO Active PREDNISONE 20 MG TAB 2 tabs daily for 3 days, 1 tab daily for 3 days, 1/2 tab daily for 2 days PREDNISONE 43602055951 No Longer Active Vishal Hui MD Active CEFDINIR 300 MG CAPS by mouth twice a day CEFDINIR 77635467401 No Longer Active Vishal Hui MD Active LANSOPRAZOLE 30 MG CPDR 1 cap po qd LANSOPRAZOLE 56120236639 No Longer Active Vishal Hui MD Active BACLOFEN 20 MG TABS 1 tab po tid BACLOFEN 25781252053 No Longer Active Vishal Hui MD Active ADVAIR DISKUS 250-50 MCG/DOSE AEPB 1 puff BID ADVAIR DISKUS 250-50 MCG/DOSE AEPB FLUTICASONE-SALMETEROL Inactive ESCITALOPRAM OXALATE 20 MG TABS 1 tab po qd ESCITALOPRAM OXALATE 20 MG TABS 781997 ESCITALOPRAM OXALATE Inactive ATENOLOL 25 MG TABS 1 tab po qd ATENOLOL 25 MG TABS 912006 ATENOLOL Inactive BENZTROPINE MESYLATE 1 MG TABS 1 tab po qd BENZTROPINE MESYLATE 1 MG TABS 776458 BENZTROPINE MESYLATE Inactive BUSPIRONE HCL 15 MG TABS 1 tab po TID BUSPIRONE HCL 15 MG TABS 548467 BUSPIRONE HCL Inactive LEVOFLOXACIN 500 MG TABS 1 tab po qd LEVOFLOXACIN 500 MG TABS 483360 LEVOFLOXACIN Inactive PREDNISONE 20 MG TABS 1 tab po qd PREDNISONE 20 MG TABS 646625 PREDNISONE Inactive MIRALAX POWD 1 capfull once daily MIRALAX POWD 203483 POLYETHYLENE GLYCOL 3350 Inactive VERAPAMIL HCL ER 180 MG CR-TABS 1 tab po bid VERAPAMIL HCL ER 180 MG CR-TABS VERAPAMIL HCL Inactive LORATADINE 10 MG TABS 1 tab po qd LORATADINE 10 MG TABS 851331 LORATADINE Inactive LYRICA 50 MG CAPS 1 tab po TID LYRICA 50 MG CAPS PREGABALIN Inactive ZALEPLON 10 MG CAPS 1 cap po every other night ZALEPLON 10 MG CAPS 164910 ZALEPLON Inactive SAPHRIS 5 MG SUBL 1 tab po qd SAPHRIS 5 MG SUBL ASENAPINE MALEATE Inactive TRAZODONE HCL 50 MG TABS 1/2 tab po qd prn for anxiety TRAZODONE HCL 50 MG TABS 940418 TRAZODONE HCL Inactive LATUDA 20 MG TABS Take one by mouth daily LATUDA 20 MG TABS LURASIDONE HCL Inactive LISINOPRIL 20 MG TABS 1 tab po qd LISINOPRIL 20 MG TABS 289424 LISINOPRIL Inactive SAPHRIS 10 MG SUBL 1 [...] twice daily BACTRIM DS 800-160 MG TAB 194236 TRIMETHOPRIM-SULFAMETHOXAZOLE Inactive MULTIVITAMINS CAPS Take one by mouth daily MULTIVITAMINS CAPS MULTIPLE VITAMIN Inactive MELATONIN 3 MG CAPS 2 po q hs MELATONIN 3 MG CAPS 210500 MELATONIN Inactive KEFLEX 500 MG ORAL CAPS 1 cap QID by mouth KEFLEX 500 MG ORAL CAPS 450401 CEPHALEXIN Inactive CLINDAMYCIN HCL 150 MG CAPS 1 four times a day CLINDAMYCIN HCL 150 MG CAPS 360505 CLINDAMYCIN HCL Inactive DIFLUCAN 150 MG TAB 1 tablet by mouth daily DIFLUCAN 150 MG TAB 110974 FLUCONAZOLE Inactive PROZAC 20 MG CAP Take one by mouth daily PROZAC 20 MG CAP 566382 FLUOXETINE HCL Inactive IBUPROFEN 600 MG TAB 1 po TID PRN IBUPROFEN 600 MG TAB 609224 IBUPROFEN Inactive VYVANSE 40 MG CAPS 1 daily, VYVANSE 40 MG CAPS LISDEXAMFETAMINE DIMESYLATE Inactive TRAZODONE HCL 100 MG TAB take 1 at bedtime TRAZODONE HCL 100 MG TAB 090119 TRAZODONE HCL Inactive AMITRIPTYLINE HCL 100 MG TAB one at hs AMITRIPTYLINE HCL 100 MG TAB 239024 AMITRIPTYLINE HCL Inactive AMLODIPINE BESYLATE 5 MG TABS 1 tablet by mouth daily AMLODIPINE BESYLATE 5 MG TABS 641919 AMLODIPINE BESYLATE Inactive LATUDA 80 MG TABS Take one by mouth daily LATUDA 80 MG TABS LURASIDONE HCL Inactive SAPHRIS 5 MG SUBL 1 po bid SAPHRIS 5 MG SUBL ASENAPINE MALEATE Inactive PREDNISONE 20 MG TAB 2 tabs daily for 4 days, 1 tab daily for 4 days, 1/2 tab daily for 4 days PREDNISONE 20 MG TAB 608207 PREDNISONE Inactive AMBIEN 5 MG ORAL TABS 1 tab at bedtime AMBIEN 5 MG ORAL TABS 770604 ZOLPIDEM TARTRATE Inactive PROZAC 20 MG ORAL CAPS 1 tab daily PROZAC 20 MG ORAL CAPS 264943 FLUOXETINE HCL Inactive ABILIFY 15 MG ORAL TABS 1 tab daily ABILIFY 15 MG ORAL TABS 476094 ARIPIPRAZOLE Inactive METOPROLOL TARTRATE 50 MG TAB 1 po bid METOPROLOL TARTRATE 50 MG TAB 512478 METOPROLOL TARTRATE Inactive TRAMADOL HCL 50 MG TABS 1-2 po TID PRN Pain TRAMADOL HCL 50 MG TABS 028408 TRAMADOL HCL Inactive PIROXICAM 20 MG CAPS 1 cap po qd PRN Pain PIROXICAM 20 MG CAPS 439198 PIROXICAM Inactive MINIPRESS 2 MG CAPS 4 cap po at night MINIPRESS 2 MG CAPS 184789 PRAZOSIN HCL Inactive MIRALAX PACK 1 po qd PRN Constipation MIRALAX PACK 442599 POLYETHYLENE GLYCOL 3350 Inactive METOPROLOL TARTRATE 25 MG ORAL TABS 1/2 tablet twice daily for heart rate and blood pressure METOPROLOL TARTRATE 25 MG ORAL TABS 043940 METOPROLOL TARTRATE Inactive VALIUM 5 MG TAB Take 1-2 tablets daily VALIUM 5 MG TAB 095087 DIAZEPAM Inactive FLAGYL 500 MG TAB 1 tablet by mouth bid FLAGYL 500 MG TAB 119690 METRONIDAZOLE Inactive DICLOFENAC POTASSIUM TABS Take 1 tablet twice a day (pt. is not sure of the dose.) DICLOFENAC POTASSIUM TABS DICLOFENAC POTASSIUM TABS Inactive ZITHROMAX Z-EARNEST 250 MG TABS 2 today and then 1 daily for 4 days ZITHROMAX Z-EARNEST 250 MG TABS 6117215 AZITHROMYCIN Inactive PREDNISONE 20 MG TABS 2 daily for 5 days then 1 daily for 5 days PREDNISONE 20 MG TABS 282600 PREDNISONE Inactive PROAIR HFA 108 (90 BASE) MCG/ACT AERS 2 puffs four times a day as needed 2015 PROAIR HFA 108 (90 BASE) MCG/ACT AERS ALBUTEROL SULFATE Inactive HYDROCODONE-ACETAMINOPHEN 5-325 MG TABS 1 to 2 four times a day as needed for pain use until can be seen by specialist HYDROCODONE- ACETAMINOPHEN 5-325 MG TABS 374742 HYDROCODONE-ACETAMINOPHEN Inactive TESSALON PERLES 100 MG CAP 1 to 2 tablets by mouth 3 times daily as needed for cough TESSALON PERLES 100 MG CAP 611888 BENZONATATE Inactive CHANTIX STARTING MONTH EARNEST 0.5 [...] Pain 2015 DICLOFENAC SODIUM 50 MG TBEC 206876 DICLOFENAC SODIUM Inactive TOPAMAX 50 MG ORAL TABS 1 tab twice daily TOPAMAX 50 MG ORAL TABS 709989 TOPIRAMATE Inactive VIIBRYD 10 MG ORAL TABS Take 1 tablet once a day VIIBRYD 10 MG ORAL TABS VILAZODONE HCL Inactive LEVOFLOXACIN 500 MG ORAL TABS po daily LEVOFLOXACIN 500 MG ORAL TABS 235486 LEVOFLOXACIN Inactive METHYLPREDNISOLONE 4 MG ORAL TABS po daily METHYLPREDNISOLONE 4 MG ORAL TABS 510379 METHYLPREDNISOLONE Inactive OXYCODONE HCL ER 10 MG ORAL T12A 1/2 tab by mouth every 4 hours prn OXYCODONE HCL ER 10 MG ORAL T12A OXYCODONE HCL Inactive FLAGYL 500 MG TAB 1 tablet by mouth bid FLAGYL 500 MG TAB 485923 METRONIDAZOLE Inactive MONISTAT 7 COMBO PACK WOODROW 100 & 2 MG-% (9GM) VAG KIT 1 applicatorful per vagina q pm x 7 MONISTAT 7 COMBO PACK WOODROW 100 & 2 MG-% (9GM) VAG KIT MICONAZOLE NITRATE Inactive BACTRIM DS 800-160 MG TABS 1 twice a day BACTRIM DS 800-160 MG TABS 376420 SULFAMETHOXAZOLE-TRIMETHOPRIM Inactive TRAMADOL HCL 50 MG TABS 1/2-1 tab TID PRN TRAMADOL HCL 50 MG TABS 560060 TRAMADOL HCL Inactive ABILIFY MAINTENA 400 MG IM SUSR 400mg injection every 26 days ABILIFY MAINTENA 400 MG IM SUSR ARIPIPRAZOLE Inactive KLONOPIN 1 MG ORAL TABS 1 tab po TID KLONOPIN 1 MG ORAL TABS 644339 CLONAZEPAM Inactive ADVAIR DISKUS 250-50 MCG/DOSE INH AEPB 1 puff twice a day for asthma ADVAIR DISKUS 250-50 MCG/DOSE INH AEPB FLUTICASONE- SALMETEROL Inactive BENADRYL 25 MG CAP 4 po at bedtime for insomnia BENADRYL 25 MG CAP DIPHENHYDRAMINE HCL Inactive PREDNISONE 20 MG TABS 2 daily for 5 days then 1 daily for 5 days PREDNISONE 20 MG TABS 090133 PREDNISONE Inactive HYDROCODONE-ACETAMINOPHEN 5-325 MG ORAL TABS 1 tab two times a day HYDROCODONE-ACETAMINOPHEN 5-325 MG ORAL TABS 819311 HYDROCODONE-ACETAMINOPHEN Inactive ZITHROMAX Z-EARNEST 250 MG TABS 2 today and then 1 daily for 4 days ZITHROMAX Z-EARNEST 250 MG TABS 6800002 AZITHROMYCIN Inactive GUAIFENESIN-CODEINE 100-10 MG/5ML SYRP 5ml every 4 to 6 hours as needed for cough GUAIFENESIN-CODEINE 100-10 MG/5ML SYRP 556311 GUAIFENESIN-CODEINE Inactive HALOPERIDOL 10 MG ORAL TABS 1 tab q.d HALOPERIDOL 10 MG ORAL TABS [id number] HALOPERIDOL Inactive ASPIRIN 325 MG ORAL TABS 1 tab q.d ASPIRIN 325 MG ORAL TABS 947326 ASPIRIN Inactive FLUTICASONE PROPIONATE 50 MCG/ACT SUSP 2 sprays each nostril daily before bed. FLUTICASONE PROPIONATE 50 MCG/ACT SUSP [id number] FLUTICASONE PROPIONATE Inactive ZOFRAN 4 MG TABS 1 po q6hr PRN Nausea ZOFRAN 4 MG TABS 746016 ONDANSETRON HCL Inactive KEFLEX 500 MG CAP 1 po qid KEFLEX 500 MG CAP [id number] CEPHALEXIN Inactive ACETAMINOPHEN-CODEINE 120-12 MG/5ML SOLN 5 ml by mouth every 4-6 hours if needed for cough ACETAMINOPHEN-CODEINE 120-12 MG/5ML SOLN 906839 ACETAMINOPHEN-CODEINE Inactive PREDNISONE 20 MG TAB 1 tablet daily x 4 days PREDNISONE 20 MG TAB 399215 PREDNISONE Inactive TROPICAMIDE 0.5 % OPHTH SOLN 1 drop PRN eye spasms TROPICAMIDE 0.5 % OPHTH SOLN 136230 TROPICAMIDE Inactive LEVAQUIN 500 MG TABS 1 daily for infection LEVAQUIN 500 MG TABS 065510 LEVOFLOXACIN Inactive PREDNISONE 10 MG TABS 2 daily for 5 days then 1 daily for 5 days PREDNISONE 10 MG TABS 093363 PREDNISONE Inactive EQ NICOTINE 21 MG/24HR TRANS [...] twice a day MUPIROCIN 2 % OINT 321377 MUPIROCIN Inactive BACTRIM DS 800-160 MG TAB Take one (1) tablet by mouth twice a day for 5 days BACTRIM DS 800-160 MG TAB [id number] TRIMETHOPRIM- SULFAMETHOXAZOLE Inactive LACTULOSE 10 GM/15ML ORAL SOLN 30mL oral BID for IBS-C LACTULOSE 10 GM/15ML ORAL SOLN 709857 LACTULOSE Inactive MIRALAX ORAL POWD 17GMS DAILY IN WATER MIRALAX ORAL POWD 461587 POLYETHYLENE GLYCOL 3350 Inactive CEFDINIR 300 MG CAPS by mouth twice a day CEFDINIR 300 MG CAPS 537839 CEFDINIR Inactive PREDNISONE 20 MG TAB 2 tabs daily for 3 days, 1 tab daily for 3 days, 1/2 tab daily for 2 days PREDNISONE 20 MG TAB 492117 PREDNISONE Inactive BACTRIM DS 800-160 MG TABS 1 po BID x 7 days BACTRIM DS 800-160 MG TABS 19820521 SULFAMETHOXAZOLE-TRIMETHOPRIM Inactive DIFLUCAN 150 MG TABS 1 pill every other day x 2 doses DIFLUCAN 150 MG TABS 708375 FLUCONAZOLE Inactive BACTRIM DS 800-160 MG TABS 1 pill by mouth twice daily BACTRIM DS 800-160 MG TABS 19820521 SULFAMETHOXAZOLE-TRIMETHOPRIM Inactive KEFLEX 500 MG CAP 1 po TID x 10 days KEFLEX 500 MG CAP 001745 CEPHALEXIN Inactive Advance Directives Directive Description Start [...] % 11.0-15.0 platelet count 443 THOUSAND/UL 10*3/mm3 373-103 9232/03/01 mean platelet volume 8.2 fL 7.5-12.5 leukocyte [...] % 11.0-15.0 platelet count 349 THOUSAND/UL 10*3/mm3 400-637 0151/04/12 mean platelet volume 8.4 fL 7.5-12.5 Lab [...] 369 10^3/MM^3 10*3/mm3 142-424 Lab Report: Chlamydia/GC APTIMA/91499 - Lab chlamydia DNA probe NOT DETECTED NOT DETECTED Lab Report: Chlamydia/GC APTIMA/01512 - Microbiology Neisseria gonorrhoeae DNA probe NOT DETECTED NOT DETECTED Lab Report: Chlamydia/GC APTIMA/28861, Urinalysis, Complete, with Reflex ... - Lab chlamydia DNA probe NOT DETECTED NOT DETECTED Lab Report: Chlamydia/GC APTIMA/92603, Urinalysis, Complete, with Reflex ... - Microbiology Neisseria gonorrhoeae DNA probe NOT DETECTED NOT DETECTED Lab Report: Chlamydia/GC APTIMA/54507, Urinalysis, Complete, with Reflex ... - Urinalysis microalbumin/total urine volume 2 mg/L Units converted. See lab report for original value. microalbumin/creatinine ratio, urine 9 MCG/MG CREAT mg/L <30 Lab Report: Comp. Metabolic Panel - Chemistry sodium, serum 140 mmol/L 307-562 3190/08/08 carbon dioxide, venous blood 33.7 mmol/L 21.0-32.0 potassium, serum 5.0 mmol/L 3.5-5.2 chloride, serum 103 mmol/L 98-107 blood glucose 80 mg/dL 65-110 urea nitrogen, blood 13 mg/dL 7-18 creatinine, serum 0.88 mg/dL 0.55-1.30 alanine aminotransferase (SGPT), serum 54 U/L 12-78 aspartate aminotransferase (SGOT), serum 29 U/L 15-37 calcium, serum 9.7 mg/dL 8.5-10.1 bilirubin, serum, total 0.30 mg/dL 0.00-1.00 sodium, serum 140 mmol/L 460-160 0086/06/28 carbon dioxide, venous blood 23.8 mmol/L 21.0-32.0 [...] 5.0-8.5 Encounters Code Encounter Date Provider Facility CPT-63512 Level 3 Est. Patient 10:53:17 CDT Suzan Boo [facility] CPT-76910 Level 3 Est. Patient 11:08:35 CDT Suzan Boo [facility] CPT-72357 Level 3 Est. [facility] 15:55:[facility] 4 Est[facility] 10:49:[facility] Level 3 Est. Patient 10:00:25 CDT Suzan Boo [facility] CPT-56189 Level 3 Est. Patient 10:29:30 CDT Suzan Boo [facility] CPT-66574 Level 3 Est. Patient 11:04:38 CDT Renzo Thornton [facility] CPT-70183 Level 3 Est. Patient 11:15:58 ESTHETICIAN/SPA COORDINATOR Renzo Thornton [facility] CPT-14146 Level 3 Est. Patient 15:28:23 ESTHETICIAN/SPA COORDINATOR Suzan Boo [facility] CPT-16677 Level 4 Est. Patient 10:20:54 ESTHETICIAN/SPA COORDINATOR Suzan Boo [facility] CPT-93416 Level 3 Est. Patient 11:47:37 ESTHETICIAN/SPA COORDINATOR Ahmet Carbajal MD [facility] CPT-02770 Level 3 Est. Patient 10:40:11 ESTHETICIAN/SPA COORDINATOR Ahmet Carbajal MD [facility] CPT-82800 Level 3 Est. Patient 15:07:06 ESTHETICIAN/SPA COORDINATOR Neeraj Collins MD [facility] CPT-47668 Level 4 Est. Patient 14:45:00 ESTHETICIAN/SPA COORDINATOR Ahmet Carbajal MD [facility] CPT-54292 Level 3 Est. Patient 13:59:59 CDT Luigi Martínez [facility] CPT-30738 Level 3 Est. Patient 18:18:53 CDT Neeraj Collins MD [facility] CPT-54128 Level 3 Est. Patient 15:50:44 CDT Vishal Hui MD [facility] CPT-78925 Level 3 Est. Patient 11:36:17 CDT Ahmet Carbajal MD [facility] CPT-76133 Level 3 Est. Patient 13:29:16 CDT Vishal Hui MD [facility] CPT-42513 Level 3 Est. Patient 14:27:52 CDT Neeraj Collins MD [facility] CPT-40084 Level 3 Est. Patient 08:56:03 CDT Luigi Martínez [facility] CPT-61266 Level 4 Est. Patient 12:11:48 CDT Fabiloa Johnson [facility] CPT-16358 Level 3 New Patient 16:53:37 CDT Albert Caldera MD [facility] CPT-45731 Level 3 Est. Patient 11:25:49 CDT Renzo Thornton DO [facility] CPT-65072 Level 3 Est. Patient 15:22:01 CDT Ahmet Carbajal MD [facility] CPT-20216 Level 4 Est. Patient 09:00:51 ESTHETICIAN/SPA COORDINATOR Vishal Hui MD [facility] CPT-94429 Level 3 Est. Patient 11:37:33 ESTHETICIAN/SPA COORDINATOR Vishal Hui MD [facility] CPT-04279 Level 3 Est. Patient 08:41:09 ESTHETICIAN/SPA COORDINATOR Vishal Hui MD [facility] CPT-68575 Level 4 Est. Patient 10:19:35 ESTHETICIAN/SPA COORDINATOR Vishal Hui MD [facility] CPT-07488 Level 3 Est. Patient 13:35:45 CDT Vishal Hui MD [facility] CPT-90820 Level 4 Est. Patient 10:08:37 CDT Vishal Hui MD [facility] CPT-24448 Level 3 Est. Patient 11:22:10 CDT Vishal Hui MD [facility] CPT-63042 Level 3 Est. Patient 11:03:32 CDT Sahara Rodriguez MD [facility] CPT-57879 Level 3 Est. Patient 09:41:35 CDT Vishal Hui MD [facility] CPT-49390 Level 3 Est. Patient 12:00:41 CDT Neeraj Collins MD [facility] CPT-39205 Level 3 Est. Patient 09:16:24 CDT Vishal Hui MD [facility] CPT-30988 Level 4 Est. Patient 13:59:09 CDT Neeraj Collins MD [facility] CPT-53777 Level 3 Est. Patient 15:19:43 CDT Renzo Thornton DO [facility] CPT-19890 Level 3 Est. Patient 18:10:26 CDT Sahara Rodriguez MD PhD [facility]-09189 Level 3 Est. Patient 14:49:50 CDT Vishal Hui MD [facility] CPT-67398 Level 4 Est. Patient 18:41:46 CDT Neeraj Collins MD [facility] CPT-87924 Level 4 Est. Patient 09:18:38 ESTHETICIAN/SPA COORDINATOR Vishal Hui MD [facility] CPT-12298 Level 3 Est. Patient 14:43:55 ESTHETICIAN/SPA COORDINATOR Vishal Hui MD [facility] CPT-61144 Level 3 Est. Patient 15:26:33 ESTHETICIAN/SPA COORDINATOR Sahara Rodriguez MD PhD [facility] CPT-94401 Level 3 Est. Patient 10:32:14 ESTHETICIAN/SPA COORDINATOR Vishal Hui MD [facility] CPT-15607 Level 3 Est. Patient 15:12:52 ESTHETICIAN/SPA COORDINATOR Vishal Hui MD [facility] CPT-07887 Level 4 Est. Patient 09:19:27 CDT Vishal Hui MD [facility] CPT-69856 Level 3 Est. Patient 15:53:00 CDT Renzo Barajas [facility] CPT-71468 Level 3 Est. Patient 15:50:30 CDT Renzo Barajas [facility] CPT-06329 Level 3 Est. Patient 16:55:24 CDT Vishal Hui MD [facility] Procedures Code Procedure Name Date Entry Date Standard Description CPT-79146 Venipuncture Draw Fee 10:53:17 CDT CPT-28873 EKG Trac and Interp - XRAY USE ONLY 15:59:30 CDT 09/13 CPT-64283 Chest 1V Frontal - XRAY USE ONLY 15:59:30 CDT CPT-86860 Venipuncture Draw Fee 15:44:02 CDT CPT-98060 Venipuncture Draw Fee 08:41:12 CDT CPT-57641 Abd compl w upright - XRAY USE ONLY 10:27:59 CDT 06/28 CPT-96969 Smoking Cessation counseling 11:15:58 ESTHETICIAN/SPA COORDINATOR CPT-G0439 [facility] Annual Wellness Exam 09:30:58 ESTHETICIAN/SPA COORDINATOR CPT-07745 TSH - LAB USE ONLY 08:50:26 ESTHETICIAN/SPA COORDINATOR CPT-21028 CBC - LAB USE ONLY 08:50:26 ESTHETICIAN/SPA COORDINATOR CPT-60501 Venipuncture Draw Fee 08:50:26 ESTHETICIAN/SPA COORDINATOR CPT-10884 Abx/Therapy Injection 17:34:30 ESTHETICIAN/SPA COORDINATOR CPT-05264 Nexplanon Removal with Reinsertion 14:09:32 CDT CPT-J7307 Nexplanon (Implant) 14:09:32 CDT CPT-OV Office Visit 14:09:32 CDT CPT-30138 UA w micro - LAB USE ONLY 16:21:13 CDT CPT-15040 Wet Mount - LAB USE ONLY 16:21:13 CDT CPT-79708 First Vx - Ix admin for Medicare patients 14:37:47 CDT CPT-31705 Fluzone Preservative Free Intramuscular Suspension 14:37 :47 CDT CPT-69423 Abx/Therapy Injection 13:54:22 CDT CPT-76824 Abx/Therapy Injection 08:47:09 CDT CPT-18346 Abx/Therapy Injection 13:29:56 CDT CPT-54026 Abx/Therapy Injection 08:36:16 CDT CPT-74502 Wet Mount - LAB USE ONLY 17:44:58 CDT CPT-09919 UA w micro - LAB USE ONLY 17:44:58 CDT CPT-56571 CMP - LAB USE ONLY 17:44:58 CDT CPT-58012 Venipuncture Draw Fee 17:44:58 CDT CPT-67032 Cervical Min 4V - XRAY USE ONLY 09:01:40 CDT CPT-31945 Chest 2V Frontal and Lat - XRAY USE ONLY 11:06:31 CDT CPT-68724 EKG Trac and Interp - XRAY USE ONLY 11:31:43 CDT 08/26 CPT-J3420 Vitamin B12 1000mcg (Cyanocobalamin) 08:10:26 ESTHETICIAN/SPA COORDINATOR 04/12 CPT-38412 Abx/Therapy Injection 08:10:26 ESTHETICIAN/SPA COORDINATOR CPT-G0438 Initial Annual Wellness Exam 19:01:01 ESTHETICIAN/SPA COORDINATOR CPT-J3420 Vitamin B12 1000mcg (Cyanocobalamin) 16:57:46 CDT 08/14 CPT-43379 Recombivax HB Injection Suspension 5 MCG/0.5ML 08:37:50 ESTHETICIAN/SPA COORDINATOR CPT-39329 Immunization Single Admin 08:37:50 ESTHETICIAN/SPA COORDINATOR CPT-J3420 Vitamin B12 1000mcg (Cyanocobalamin) 08:32:16 ESTHETICIAN/SPA COORDINATOR 03/11 CPT-06587 Abx/Therapy Injection 08:32:16 ESTHETICIAN/SPA COORDINATOR CPT-29124 Chest 2V Frontal and Lat 11:46:38 ESTHETICIAN/SPA COORDINATOR CPT-43870 Venipuncture Draw Fee 09:12:45 ESTHETICIAN/SPA COORDINATOR CPT-J3420 Vitamin B12 1000mcg (Cyanocobalamin) 08:50:15 ESTHETICIAN/SPA COORDINATOR 02/08 CPT-09402 Abx/Therapy Injection 08:50:15 ESTHETICIAN/SPA COORDINATOR CPT-Cryo Cryotherapy 10:19:35 ESTHETICIAN/SPA COORDINATOR CPT-000 Give Appropriate Flu Vaccine 09:22:16 CDT CPT-J3420 Vitamin B12 1000mcg (Cyanocobalamin) 19:08:57 CDT 01/11 CPT-60186 Abx/Therapy Injection 19:08:57 CDT CPT-J3420 Vitamin B12 1000mcg (Cyanocobalamin) 08:19:08 CDT 12/11 CPT-91091 Abx/Therapy Injection 08:19:08 CDT CPT-J3420 Vitamin B12 1000mcg (Cyanocobalamin) 14:48:00 CDT 11/09 CPT-77719 Abx/Therapy Injection 14:47:59 CDT CPT-J3420 Vitamin B12 1000mcg (Cyanocobalamin) 08:34:04 CDT 10/09 CPT-15572 Abx/Therapy Injection 08:34:04 CDT CPT-J3420 Vitamin B12 1000mcg (Cyanocobalamin) 09:18:52 CDT 09/11 CPT-91698 Abx/Therapy Injection 09:18:52 CDT CPT-J3420 Vitamin B12 1000mcg (Cyanocobalamin) 08:35:44 CDT 09/04 CPT-53713 Abx/Therapy Injection 08:35:44 CDT CPT-57004 Immunization Single Admin 11:07:16 CDT CPT-08046 Hepatitis B adult IM 11:07:16 CDT CPT-J3420 Vitamin B12 1000mcg (Cyanocobalamin) 11:00:49 CDT 08/28 CPT-J1040 Depo Medrol 80 mg (Methyl Prednisolone Acetate) 11:00: 49 CDT CPT-13786 Abx/Therapy Injection 11:00:49 CDT CPT-J1040 Depo Medrol 80 mg (Methyl Prednisolone Acetate) 09:16: 23 CDT CPT-J3420 Vitamin B12 1000mcg (Cyanocobalamin) 08:27:05 CDT 08/20 CPT-64886 Abx/Therapy Injection 08:27:05 CDT CPT-24300 Recombivax HB Injection Suspension 5 MCG/0.5ML 10:00:41 CDT CPT-74066 Administration single or combination vaccine inc oral 10 :00:41 CDT CPT-25815 Sono transvag pelvis non OB uterus ovaries cervix 16:36: 57 CDT CPT-75978 LS spine comp w obliq 09:50:55 ESTHETICIAN/SPA COORDINATOR CPT-90002 Abd compl w upright 09:50:55 ESTHETICIAN/SPA COORDINATOR CPT-J1100 Decadron 4mg (Dexamethasone) 15:51:24 ESTHETICIAN/SPA COORDINATOR CPT-J1030 Depo Medrol 40 mg (Methyl Prednisolone Acetate) 15:51: 24 ESTHETICIAN/SPA COORDINATOR CPT-35414 Abx/Therapy Injection 15:51:24 ESTHETICIAN/SPA COORDINATOR CPT-J1100 Decadron 4mg (Dexamethasone) 15:26:33 ESTHETICIAN/SPA COORDINATOR CPT-J1030 Depo Medrol 40 mg (Methyl Prednisolone Acetate) 15:26: 33 ESTHETICIAN/SPA COORDINATOR CPT-21606 Sono retroperitoneal complete kidneys and bladder 17:15: 30 CDT CPT-89695 Abd compl w upright 16:09:25 CDT CPT-J1100 Decadron 8mg (Dexamethasone) 17:07:57 CDT CPT-88798 Abx/Therapy Injection 17:07:57 CDT CPT-J1100 Decadron 8mg (Dexamethasone) 16:55:24 CDT CPT-47438 Chest 2V Frontal and Lat 16:32:44 CDT
--- OUTSIDE RECORDS SUMMARY | 2016-11-04 19:28 | XMS REPORT | Clinical Summary ---
Author Author Admin, BRIELLEE Organization [employer] Address Unknown Phone Unavailable Allergies, Adverse Reactions, [...] sites Morbid obesity 278.01 Active Juliet Kimbrough EXCHANGE UNDERWRITING CONSULTANT Morbid obesity 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 Active Juliet [...] breath Nocturnal hypoxia 799.02 Active Fabiola Johnson [employer]CHANGE UNDERWRITING CONSULTANT Hypoxemia Neck pain 723.1 Resolved Vishal Hui [...] fibula Vaginal discharge 623.5 Active Luigi Martínez EXCHANGE UNDERWRITING CONSULTANT Leukorrhea, not specified as infective DYSURIA 788.1 [...] ICD-041.12 Jim Hui MD Fatigue ICD-780.79 Jim Hiu MD 2014 Vaginitis, candidal ICD-112.1 Inactive Vishal [...] a day as needed 2015 ALBUTEROL SULFATE 63029803950 Active Ahmet Carbajal MD Active EQ NICOTINE 21 MG/24HR TRANS PT24 Apply daily to stop smoking NICOTINE 92326683074 Active Ahmet Carbajal MD Active BACTRIM DS 800-160 MG TABS 1 twice a day SULFAMETHOXAZOLE- TRIMETHOPRIM 46498239348 Active Ahmet Carbajal MD Active ADVAIR DISKUS 250-50 MCG/DOSE INH AEPB 1 puff twice a day for asthma FLUTICASONE-SALMETEROL 15337537723 Active Ahmet Carbajal MD Active MONISTAT 7 COMBO PACK WOODROW 100 & 2 MG-% (9GM) VAG KIT 1 applicatorful per vagina q pm x 7 MICONAZOLE NITRATE 50534015734 No Longer Active Ahmet Carbajal MD Active FLAGYL 500 MG TAB 1 tablet by mouth bid METRONIDAZOLE 07675375351 No Longer Active Ahmet Carbajal MD Active OXYCODONE HCL ER 10 MG ORAL T12A 1/2 tab by mouth every 4 hours prn OXYCODONE HCL 45994489361 No Longer Active Ahmet Carbajal MD Active METHYLPREDNISOLONE 4 MG ORAL TABS po daily METHYLPREDNISOLONE 09305051359 No Longer Active Ahmet Carbajal MD Active LEVOFLOXACIN 500 MG ORAL TABS po daily LEVOFLOXACIN 38964010142 No Longer Active Ahmet Carbajal MD Active VIIBRYD 10 MG ORAL TABS Take 1 tablet once a day VILAZODONE HCL 93199051367 No Longer Active Ahmet Carbajal MD Active TOPAMAX 50 MG ORAL TABS 1 tab twice daily TOPIRAMATE 17916700007 No Longer Active Ahmet Carbajal MD Active DICLOFENAC SODIUM 50 MG TBEC 1 tablet by mouth four times daily PRN Pain 2015 DICLOFENAC SODIUM 22934926277 No Longer Active Ahmet Carbajal MD Active ADZENYS XR-ODT 6.3 MG ORAL TBED 1 tab po daily for ADHD AMPHETAMINE 28852689351 No Longer Active Ahmet Carbajal MD Active CHANTIX 1 MG TABS 1 twice a day to help quit smoking VARENICLINE TARTRATE 92643630896 No Longer Active Dipika Burgos MD Active CHANTIX STARTING MONTH EARNEST 0.5 MG X 11 & 1 MG X 42 TABS take as directed 2015 VARENICLINE TARTRATE 01122890681 No Longer Active Dipika Burgos MD Active TESSALON PERLES 100 MG CAP 1 to 2 tablets by mouth 3 times daily as needed for cough BENZONATATE 53259751562 No Longer Active Luigi Martínez EXCHANGE UNDERWRITING CONSULTANT Active ABILIOMAR MAINTENA 400 MG IM SUSR 400mg injection every 26 days ARIPIPRAZOLE 23646100879 Active Silvia Casey [employer]URANCE UNDERWRITER SALES Active IMITREX 50 MG ORAL TABS 0.5 po x 1 PRN Headache. May repeat dose x 1 in 2 hours if needed SUMATRIPTAN SUCCINATE 39997277445 Active Vishal Hui MD Active HYDROCODONE-ACETAMINOPHEN 5-325 MG TABS 1 to 2 four times a day as needed for pain use until can be seen by specialist HYDROCODONE- ACETAMINOPHEN 46971998463 No Longer Active Vishal Hui MD Active PROAIR HFA 108 (90 BASE) MCG/ACT AERS 2 puffs four times a day as needed 2015 ALBUTEROL SULFATE 54823200273 No Longer Active Vishal Hui MD Active PREDNISONE 20 MG TABS 2 daily for 5 days then 1 daily for 5 days PREDNISONE 17659095853 No Longer Active Vishal Hui MD Active ZITHROMAX Z-EARNEST 250 MG TABS 2 today and then 1 daily for 4 days AZITHROMYCIN 55051424123 No Longer Active Vishal Hui MD Active DICLOFENAC POTASSIUM TABS Take 1 tablet twice a day (pt. is not sure of the dose.) DICLOFENAC POTASSIUM TABS 53500615091 No Longer Active Vishal Hui MD Active VERAPAMIL HCL ER 120 MG ORAL CR-TABS Take 1 tablet by mouth twice a day. VERAPAMIL HCL 61672703437 Active Vishal Hui MD Active FLAGYL 500 MG TAB 1 tablet by mouth bid METRONIDAZOLE 36082969141 No Longer Active Vishal Hui MD Active FLUTICASONE PROPIONATE 50 MCG/ACT SUSP 2 sprays each nostril daily before bed. FLUTICASONE PROPIONATE 63078742765 Active Fabiola Johnson APRN Active BENADRYL 25 MG CAP 4 po at bedtime for insomnia DIPHENHYDRAMINE HCL 94275294151 Active Fabiola Johnson APRN Active KLONOPIN 1 MG ORAL TABS 1 tab po TID CLONAZEPAM 47478507395 Active Fabiola Johnson APRN Active VALIUM 5 MG TAB Take 1-2 tablets daily DIAZEPAM 89821770780 No Longer Active Fabiola Johnson APRN Active METOPROLOL TARTRATE 25 MG ORAL TABS 1/2 tablet twice daily for heart rate and blood pressure METOPROLOL TARTRATE 22307020733 No Longer Active Fabiola Johnson APRN Active MIRALAX ORAL POWD 17GMS DAILY IN WATER POLYETHYLENE GLYCOL 3350 36785760146 Active Vishal Hui MD Active MIRALAX PACK 1 po qd PRN Constipation POLYETHYLENE GLYCOL 3350 45886248583 No Longer Active Ahmet Carbajal MD Active MINIPRESS 2 MG CAPS 4 cap po at night PRAZOSIN HCL 47582654077 No Longer Active Ahmet Carbajal MD Active PIROXICAM 20 MG CAPS 1 cap po qd PRN Pain PIROXICAM 52022608811 No Longer Active Ahmet Carbajal MD Active TRAMADOL HCL 50 MG TABS 1-2 po TID PRN Pain TRAMADOL HCL 86891446865 No Longer Active Ahmet Carbajal MD Active METOPROLOL TARTRATE 50 MG TAB 1 po bid METOPROLOL TARTRATE 69750420832 No Longer Active Ahmet Carbajal MD Active ABILIFY 15 MG ORAL TABS 1 tab daily ARIPIPRAZOLE 22526883865 No Longer Active Ahmet Carbajal MD Active PROZAC 20 MG ORAL CAPS 1 tab daily FLUOXETINE HCL 29621196157 No Longer Active Ahmet Carbajal MD Active AMBIEN 5 MG ORAL TABS 1 tab at bedtime ZOLPIDEM TARTRATE 55504923582 No Longer Active Ahmet Carbajal MD Active PREDNISONE 20 MG TAB 2 tabs daily for 4 days, 1 tab daily for 4 days, 1/2 tab daily for 4 days PREDNISONE 11456254434 No Longer Active Ahmet Carbajal MD Active KEFLEX 500 MG CAP 1 po TID x 10 days CEPHALEXIN 25530187901 No Longer Active Vishal Hui MD Active SAPHRIS 5 MG SUBL 1 po bid ASENAPINE MALEATE 26963839922 No Longer Active Luigi Martínez APRN Active LATUDA 80 MG TABS Take one by mouth daily LURASIDONE HCL 58964408546 No Longer Active Jillina Fralebron EXCHANGE UNDERWRITING CONSULTANT Active AMLODIPINE BESYLATE 5 MG TABS 1 tablet by mouth daily AMLODIPINE BESYLATE 76704344215 No Longer Active Jillina Mauricio NORIEGA Active AMITRIPTYLINE HCL 100 MG TAB one at hs AMITRIPTYLINE HCL 27222478373 No Longer Active Vishal Hui MD Active TRAZODONE HCL 100 MG TAB take 1 at bedtime TRAZODONE HCL 19574528157 No Longer Active Vishal Hui MD Active VYVANSE 40 MG CAPS 1 daily, LISDEXAMFETAMINE DIMESYLATE 62897372245 No Longer Active Vsihal Hui MD Active IBUPROFEN 600 MG TAB 1 po TID PRN IBUPROFEN 21792455753 No Longer Active Vishal Hui MD Active PROZAC 20 MG CAP Take one by mouth daily FLUOXETINE HCL 68537518469 No Longer Active Vishal Hui MD Active ZOFRAN 4 MG TABS 1 po q6hr PRN Nausea ONDANSETRON HCL Active Vishal Hui MD Active BACTRIM DS 800-160 MG TABS 1 pill by mouth twice daily SULFAMETHOXAZOLE-TRIMETHOPRIM 90143368833 No Longer Active Sahara Rodriguez MD PhD Active DIFLUCAN 150 MG TAB 1 tablet by mouth daily FLUCONAZOLE 78738238460 No Longer Active Vishal Hui MD Active TIZANIDINE HCL 4 MG TABS 1 po q6hr PRN Muscle Spasm/Back Pain TIZANIDINE HCL 50672660792 Active Vishal Hui MD Active CLINDAMYCIN HCL 150 MG CAPS 1 four times a day CLINDAMYCIN HCL 48907129272 No Longer Active Neeraj Collins MD Active KEFLEX 500 MG ORAL CAPS 1 cap QID by mouth CEPHALEXIN 43629685466 No Longer Active Neeraj Collins MD Active DIFLUCAN 150 MG TABS 1 pill every other day x 2 doses FLUCONAZOLE 85392754967 No Longer Active Sahara Rodriguez MD PhD Active MELATONIN 3 MG CAPS 2 po q hs MELATONIN 48415673321 No Longer Active Sahara Rodriguez MD PhD Active MULTIVITAMINS CAPS Take one by mouth daily MULTIPLE VITAMIN 56144404487 No Longer Active Sahara Rodriguez MD PhD Active BACTRIM DS 800-160 MG TAB 1 tab by mouth twice daily TRIMETHOPRIM-SULFAMETHOXAZOLE 31325799634 No Longer Active Sahara Rodriguez MD PhD Active [facility] PROBIOTIC ORAL CHEW 2 daily po PROBIOTIC PRODUCT 95563966802 No Longer Active Sahara Rodriguez MD PhD Active BACTRIM DS 800-160 MG TABS 1 po BID x 7 days SULFAMETHOXAZOLE-TRIMETHOPRIM 01354090976 No Longer Active Vishal Hui MD Active CHANTIX STARTING MONTH EARNEST 0.5 MG X 11 & 1 MG X 42 TABS 0.5mg daily for 3 days , then 0.5mg BID for 4 days, then 1mg BID VARENICLINE TARTRATE 52010506324 No Longer Active TAMARA Gray Active VERAPAMIL HCL CR 120 MG TAB CR 1 po bid VERAPAMIL HCL 17663701163 No Longer Active Vishal Hui MD Active METOPROLOL SUCCINATE 50 MG TB24 1 tablet by mouth daily METOPROLOL SUCCINATE 48825311080 No Longer Active Vishal Hui MD Active SAPHRIS 10 MG SUBL 1 tab po bid ASENAPINE MALEATE 02925886005 No Longer Active Vishal Hui MD Active LISINOPRIL 20 MG TABS 1 tab po qd LISINOPRIL 99121128339 No Longer Active Vishal Hui MD Active LATUDA 20 MG TABS Take one by mouth daily LURASIDONE HCL 61756725302 No Longer Active Vishal Hui MD Active TRAZODONE HCL 50 MG TABS 1/2 tab po qd prn for anxiety TRAZODONE HCL 12591928801 No Longer Active Vishal Hui MD Active OMEPRAZOLE 20 MG TBEC 1 po q a.m. 30min prior to first food intake OMEPRAZOLE 68947249380 Active Vishal Hui MD Active RANITIDINE HCL 150 MG CAPS 1 twice a day RANITIDINE HCL 33636757738 Active Luigi Martínez APRN Active LINZESS 290 MCG CAPS Take one by mouth daily LINACLOTIDE 77877446983 No Longer Active Vishal Hui MD Active SAPHRIS 5 MG SUBL 1 tab po qd ASENAPINE MALEATE 28387058110 No Longer Active Vishal uHi MD Active ZALEPLON 10 MG CAPS 1 cap po every other night ZALEPLON 83590414306 No Longer Active Vishal Hui MD Active LYRICA 50 MG CAPS 1 tab po TID PREGABALIN 24743032109 No Longer Active Vishal Hui MD Active LORATADINE 10 MG TABS 1 tab po qd LORATADINE 76121468667 No Longer Active Vishal Hui MD Active VERAPAMIL HCL ER 180 MG CR-TABS 1 tab po bid VERAPAMIL HCL 66242587484 No Longer Active Vishal Hui MD Active MIRALAX POWD 1 capfull once daily POLYETHYLENE GLYCOL 3350 42993164842 No Longer Active Vishal uHi MD Active PREDNISONE 20 MG TABS 1 tab po qd PREDNISONE 16788424695 No Longer Active Renzo Thornton DO Active LEVOFLOXACIN 500 MG TABS 1 tab po qd LEVOFLOXACIN 29113443810 No Longer Active Renzo Thornton DO Active BUSPIRONE HCL 15 MG TABS 1 tab po TID BUSPIRONE HCL 72755483106 No Longer Active Renzo Thornton DO Active BENZTROPINE MESYLATE 1 MG TABS 1 tab po qd BENZTROPINE MESYLATE 44967854718 No Longer Active Renzo Thornton DO Active ATENOLOL 25 MG TABS 1 tab po qd ATENOLOL 55540151413 No Longer Active Renzo Thornton DO Active ESCITALOPRAM OXALATE 20 MG TABS 1 tab po qd ESCITALOPRAM OXALATE 34749496683 No Longer Active Renzo Thornton DO Active ADVAIR DISKUS 250-50 MCG/DOSE AEPB 1 puff BID FLUTICASONE-SALMETEROL 23955092648 No Longer Active Renzo Thornton DO Active PREDNISONE 20 MG TAB 2 tabs daily for 3 days, 1 tab daily for 3 days, 1/2 tab daily for 2 days PREDNISONE 46518493379 No Longer Active Vishal Hui MD Active CEFDINIR 300 MG CAPS by mouth twice a day CEFDINIR 02858705221 No Longer Active Vishal Hui MD Active LANSOPRAZOLE 30 MG CPDR 1 cap po qd LANSOPRAZOLE 55710702464 No Longer Active Vishal Hui MD Active BACLOFEN 20 MG TABS 1 tab po tid BACLOFEN 41643237613 No Longer Active Vishal Hui MD Active ADVAIR DISKUS 250-50 MCG/DOSE AEPB 1 puff BID ADVAIR DISKUS 250-50 MCG/DOSE AEPB FLUTICASONE-SALMETEROL Inactive ESCITALOPRAM OXALATE 20 MG TABS 1 tab po qd ESCITALOPRAM OXALATE 20 MG TABS 113339 ESCITALOPRAM OXALATE Inactive ATENOLOL 25 MG TABS 1 tab po qd ATENOLOL 25 MG TABS 586412 ATENOLOL Inactive BENZTROPINE MESYLATE 1 MG TABS 1 tab po qd BENZTROPINE MESYLATE 1 MG TABS 826757 BENZTROPINE MESYLATE Inactive BUSPIRONE HCL 15 MG TABS 1 tab po TID BUSPIRONE HCL 15 MG TABS 784832 BUSPIRONE HCL Inactive LEVOFLOXACIN 500 MG TABS 1 tab po qd LEVOFLOXACIN 500 MG TABS 936879 LEVOFLOXACIN Inactive PREDNISONE 20 MG TABS 1 tab po qd PREDNISONE 20 MG TABS 702601 PREDNISONE Inactive MIRALAX POWD 1 capfull once daily MIRALAX POWD 417899 POLYETHYLENE GLYCOL 3350 Inactive VERAPAMIL HCL ER 180 MG CR-TABS 1 tab po bid VERAPAMIL HCL ER 180 MG CR-TABS VERAPAMIL HCL Inactive LORATADINE 10 MG TABS 1 tab po qd LORATADINE 10 MG TABS 342351 LORATADINE Inactive LYRICA 50 MG CAPS 1 tab po TID LYRICA 50 MG CAPS PREGABALIN Inactive ZALEPLON 10 MG CAPS 1 cap po every other night ZALEPLON 10 MG CAPS 397944 ZALEPLON Inactive SAPHRIS 5 MG SUBL 1 tab po qd SAPHRIS 5 MG SUBL ASENAPINE MALEATE Inactive TRAZODONE HCL 50 MG TABS 1/2 tab po qd prn for anxiety TRAZODONE HCL 50 MG TABS 007533 TRAZODONE HCL Inactive LATUDA 20 MG TABS Take one by mouth daily LATUDA 20 MG TABS LURASIDONE HCL Inactive LISINOPRIL 20 MG TABS 1 tab po qd LISINOPRIL 20 MG TABS 961350 LISINOPRIL Inactive SAPHRIS 10 MG SUBL 1 [...] twice daily BACTRIM DS 800-160 MG TAB 715133 TRIMETHOPRIM-SULFAMETHOXAZOLE Inactive MULTIVITAMINS CAPS Take one by mouth daily MULTIVITAMINS CAPS MULTIPLE VITAMIN Inactive MELATONIN 3 MG CAPS 2 po q hs MELATONIN 3 MG CAPS 143206 MELATONIN Inactive KEFLEX 500 MG ORAL CAPS 1 cap QID by mouth KEFLEX 500 MG ORAL CAPS 941958 CEPHALEXIN Inactive CLINDAMYCIN HCL 150 MG CAPS 1 four times a day CLINDAMYCIN HCL 150 MG CAPS 19740326 CLINDAMYCIN HCL Inactive DIFLUCAN 150 MG TAB 1 tablet by mouth daily DIFLUCAN 150 MG TAB 19751126 FLUCONAZOLE Inactive PROZAC 20 MG CAP Take one by mouth daily PROZAC 20 MG CAP 165411 FLUOXETINE HCL Inactive IBUPROFEN 600 MG TAB 1 po TID PRN IBUPROFEN 600 MG TAB 750454 IBUPROFEN Inactive VYVANSE 40 MG CAPS 1 daily, VYVANSE 40 MG CAPS LISDEXAMFETAMINE DIMESYLATE Inactive TRAZODONE HCL 100 MG TAB take 1 at bedtime TRAZODONE HCL 100 MG TAB 729138 TRAZODONE HCL Inactive AMITRIPTYLINE HCL 100 MG TAB one at hs AMITRIPTYLINE HCL 100 MG TAB 066841 AMITRIPTYLINE HCL Inactive AMLODIPINE BESYLATE 5 MG TABS 1 tablet by mouth daily AMLODIPINE BESYLATE 5 MG TABS 403624 AMLODIPINE BESYLATE Inactive LATUDA 80 MG TABS Take one by mouth daily LATUDA 80 MG TABS LURASIDONE HCL Inactive SAPHRIS 5 MG SUBL 1 po bid SAPHRIS 5 MG SUBL ASENAPINE MALEATE Inactive PREDNISONE 20 MG TAB 2 tabs daily for 4 days, 1 tab daily for 4 days, 1/2 tab daily for 4 days PREDNISONE 20 MG TAB 211741 PREDNISONE Inactive AMBIEN 5 MG ORAL TABS 1 tab at bedtime AMBIEN 5 MG ORAL TABS 300047 ZOLPIDEM TARTRATE Inactive PROZAC 20 MG ORAL CAPS 1 tab daily PROZAC 20 MG ORAL CAPS 797954 FLUOXETINE HCL Inactive ABILIFY 15 MG ORAL TABS 1 tab daily ABILIFY 15 MG ORAL TABS 267742 ARIPIPRAZOLE Inactive METOPROLOL TARTRATE 50 MG TAB 1 po bid METOPROLOL TARTRATE 50 MG TAB 911115 METOPROLOL TARTRATE Inactive TRAMADOL HCL 50 MG TABS 1-2 po TID PRN Pain TRAMADOL HCL 50 MG TABS 913378 TRAMADOL HCL Inactive PIROXICAM 20 MG CAPS 1 cap po qd PRN Pain PIROXICAM 20 MG CAPS 102625 PIROXICAM Inactive MINIPRESS 2 MG CAPS 4 cap po at night MINIPRESS 2 MG CAPS 389241 PRAZOSIN HCL Inactive MIRALAX PACK 1 po qd PRN Constipation MIRALAX PACK 573140 POLYETHYLENE GLYCOL 3350 Inactive METOPROLOL TARTRATE 25 MG ORAL TABS 1/2 tablet twice daily for heart rate and blood pressure METOPROLOL TARTRATE 25 MG ORAL TABS 520144 METOPROLOL TARTRATE Inactive VALIUM 5 MG TAB Take 1-2 tablets daily VALIUM 5 MG TAB 097981 DIAZEPAM Inactive FLAGYL 500 MG TAB 1 tablet by mouth bid FLAGYL 500 MG TAB 752039 METRONIDAZOLE Inactive DICLOFENAC POTASSIUM TABS Take 1 tablet twice a day (pt. is not sure of the dose.) DICLOFENAC POTASSIUM TABS DICLOFENAC POTASSIUM TABS Inactive ZITHROMAX Z-EARNEST 250 MG TABS 2 today and then 1 daily for 4 days ZITHROMAX Z-EARNEST 250 MG TABS 0781208 AZITHROMYCIN Inactive PREDNISONE 20 MG TABS 2 daily for 5 days then 1 daily for 5 days PREDNISONE 20 MG TABS 433520 PREDNISONE Inactive PROAIR HFA 108 (90 BASE) MCG/ACT AERS 2 puffs four times a day as needed 2015 PROAIR HFA 108 (90 BASE) MCG/ACT AERS ALBUTEROL SULFATE Inactive HYDROCODONE-ACETAMINOPHEN 5-325 MG TABS 1 to 2 four times a day as needed for pain use until can be seen by specialist HYDROCODONE- ACETAMINOPHEN 5-325 MG TABS 468306 HYDROCODONE-ACETAMINOPHEN Inactive TESSALON PERLES 100 MG CAP 1 to 2 tablets by mouth 3 times daily as needed for cough TESSALON PERLES 100 MG CAP 904240 BENZONATATE Inactive CHANTIX STARTING MONTH EARNEST 0.5 [...] Pain 2015 DICLOFENAC SODIUM 50 MG TBEC 291210 DICLOFENAC SODIUM Inactive TOPAMAX 50 MG ORAL TABS 1 tab twice daily TOPAMAX 50 MG ORAL TABS 827195 TOPIRAMATE Inactive VIIBRYD 10 MG ORAL TABS Take 1 tablet once a day VIIBRYD 10 MG ORAL TABS VILAZODONE HCL Inactive LEVOFLOXACIN 500 MG ORAL TABS po daily LEVOFLOXACIN 500 MG ORAL TABS 566001 LEVOFLOXACIN Inactive METHYLPREDNISOLONE 4 MG ORAL TABS po daily METHYLPREDNISOLONE 4 MG ORAL TABS 814821 METHYLPREDNISOLONE Inactive OXYCODONE HCL ER 10 MG ORAL T12A 1/2 tab by mouth every 4 hours prn OXYCODONE HCL ER 10 MG ORAL T12A OXYCODONE HCL Inactive FLAGYL 500 MG TAB 1 tablet by mouth bid FLAGYL 500 MG TAB 230958 METRONIDAZOLE Inactive MONISTAT 7 COMBO PACK WOODROW [...] for 2 days PREDNISONE 20 MG TAB 718538 PREDNISONE Inactive BACTRIM DS 800-160 MG TABS 1 po BID x 7 days BACTRIM DS 800-160 MG TABS 19820521 SULFAMETHOXAZOLE-TRIMETHOPRIM Inactive DIFLUCAN 150 MG TABS 1 pill every other day x 2 doses DIFLUCAN 150 MG TABS 736777 FLUCONAZOLE Inactive BACTRIM DS 800-160 MG TABS 1 pill by mouth twice daily BACTRIM DS 800-160 MG TABS 19820521 SULFAMETHOXAZOLE-TRIMETHOPRIM Inactive KEFLEX 500 MG CAP 1 po TID x 10 days KEFLEX 500 MG CAP 544960 CEPHALEXIN Inactive Advance Directives Directive Description Start [...] % 11.6-14.8 platelet count 394 10^3/MM^3 10*3/mm3 394-165 3346/01/11 leukocyte count, blood 13.8 10^3/MM^3 10*3/mm3 4.6-10.2 [...] Panel - Chemistry sodium, serum 139 mmol/L 775-343 8608/12/03 carbon dioxide, venous blood 28.5 mmol/L 21.0-32.0 [...] 5.5 % 4.3-6.0 cholesterol, serum 159 mg/dL 051-795 6006/12/03 triglyceride, serum, fasting 118 mg/dL 30-200 HDL [...] 362 10^3/MM^3 10*3/mm3 142-424 Lab Report: Chlamydia/GC APTIMA/[id number] - Lab chlamydia DNA probe NOT DETECTED NOT DETECTED Lab Report: Chlamydia/GC APTIMA/[id number] - Microbiology Neisseria gonorrhoeae DNA probe NOT DETECTED NOT DETECTED Lab Report: Comp. Metabolic Panel - Chemistry sodium, serum 140 mmol/L 055-707 2777/08/08 carbon dioxide, venous blood 33.7 mmol/L 21.0-32.0 potassium, serum 5.0 mmol/L 3.5-5.2 chloride, serum 103 mmol/L 98-107 blood glucose 80 mg/dL 65-110 urea nitrogen, blood 13 mg/dL 7-18 creatinine, serum 0.88 mg/dL 0.55-1.30 alanine aminotransferase (SGPT), serum 54 U/L -78 aspartate aminotransferase (SGOT), serum 29 U/L 15-37 calcium, serum 9.7 mg/dL 8.5-10.1 bilirubin, serum, total 0.30 mg/dL 0.00-1.00 sodium, serum 139 mmol/L 456-516 6828/12/22 carbon dioxide, venous blood 26.8 mmol/L 21.0-32.0 potassium, serum 4.2 mmol/L 3.5-5.2 chloride, serum 103 mmol/L 98-107 blood glucose 115 mg/dL 65-110 urea nitrogen, blood 20 mg/dL 7-18 creatinine, serum 0.90 mg/dL 0.55-1.30 alanine aminotransferase (SGPT), serum 38 U/L 12-78 aspartate aminotransferase (SGOT), serum 19 U/L 15-37 calcium, serum 8.6 mg/dL 8.5-10.1 bilirubin, serum, total 0.30 mg/dL 0.00-1.00 sodium, serum 139 mmol/L 457-723 7566/01/11 carbon dioxide, venous blood 26.6 mmol/L 21.0-32.0 potassium, serum 4.1 mmol/L 3.5-5.2 chloride, serum 100 mmol/L 98-107 blood glucose 86 mg/dL 65-110 urea nitrogen, blood 16 mg/dL 7-18 creatinine, serum 1.00 mg/dL 0.55-1.30 alanine aminotransferase (SGPT), serum 48 U/L -78 aspartate aminotransferase (SGOT), serum 17 U/L 15-37 calcium, serum 9.1 mg/dL 8.5-10.1 bilirubin, serum, total 0.40 mg/dL 0.00-1.00 sodium, serum 142 mmol/L 306-243 6774/06/08 carbon dioxide, venous blood 27.6 mmol/L 21.0-32.0 [...] Rate - Chemistry sodium, serum 139 mmol/L 746-187 8068/12/11 carbon dioxide, venous blood 25.4 mmol/L 21.0-32.0 [...] mg/dL Encounters Code Encounter Date Provider Facility CPT-52673 Level 4 Est. Patient 14:45:00 [employer] Ahmet Carbajal MD [facility] CPT-02228 Level 3 Est. Patient 13:59:59 CDT Luigi Martínez [facility][note 3] CPT-34562 Level 3 Est. Patient 18:18:53 CDT Neeraj Collins MD [facility] CPT-37913 Level 3 Est. Patient 15:50:44 CDT Vishal Hui MD [facility] CPT-67072 Level 3 Est. Patient 11:36:17 CDT Ahmet Carbajal MD [facility] CPT-06616 Level 3 Est. Patient 13:29:16 CDT Vishal Hui MD [facility] CPT-53878 Level 3 Est. Patient 14:27:52 CDT Neeraj Collins MD [facility] CPT-12639 Level 3 Est. Patient 08:56:03 CDT Luigi Martínez [facility][note 3] CPT-41457 Level 4 Est. Patient 12:11:48 CDT Fabiola Johnson [facility][note 3] CPT-52046 Level 3 New Patient 16:53:37 CDT Albert Caldera MD [facility] CPT-90676 Level 3 Est. Patient 11:25:49 CDT Renzo Thornton DO [facility] CPT-42149 Level 3 Est. Patient 15:22:01 CDT Ahmet Carbajal MD [facility] CPT-39600 Level 4 Est. Patient 09:00:51 [employer] Vishal Hui MD [facility] CPT-75476 Level 3 Est. Patient 11:37:33 [employer] Vishal Hui MD [facility] CPT-89213 Level 3 Est. Patient 08:41:09 [employer] Vishal Hui MD [facility] CPT-87993 Level 4 Est. Patient 10:19:35 [employer] Vishal Hui MD [facility] CPT-16391 Level 3 Est. Patient 13:35:45 CDT Vishal Hui MD [facility] CPT-44094 Level 4 Est. Patient 10:08:37 CDT Vishal Hui MD [facility] CPT-74068 Level 3 Est. Patient 11:22:10 CDT Vishal Hui MD [facility] CPT-71709 Level 3 Est. Patient 11:03:32 CDT Sahara Rodriguez MD, PhD [facility] CPT-59079 Level 3 Est. Patient 09:41:35 CDT Vishal Hui MD [facility] CPT-19783 Level 3 Est. Patient 12:00:41 CDT Neeraj Collins MD [facility] CPT-68494 Level 3 Est. Patient 09:16:24 CDT Vishal Hui MD [facility] CPT-48504 Level 4 Est. Patient 13:59:09 CDT Neeraj Collins MD [facility] CPT-09217 Level 3 Est. Patient 15:19:43 CDT Renzo Thornton [facility] CPT-53473 Level 3 Est. Patient 18:10:26 CDT Sahara Rodriguez MD PhD [facility] CPT-96030 Level 3 Est. Patient 14:49:50 CDT Vishal Hui MD [facility] CPT-52600 Level 4 Est. Patient 18:41:46 CDT Neeraj Collins MD [facility] CPT-05387 Level 4 Est. Patient 09:18:38 [employer] Vishal Hui MD [facility] CPT-75702 Level 3 Est. Patient 14:43:55 [employer] Vishal Hui MD [facility] CPT-34128 Level 3 Est. Patient 15:26:33 [employer] Sahara Rodriguez MD PhD [facility] CPT-39140 Level 3 Est. Patient 10:32:14 [employer] Vishal Hui MD [facility] CPT-72596 Level 3 Est. Patient 15:12:52 [employer] Vishal Hui MD [facility] CPT-67748 Level 4 Est. Patient 09:19:27 CDT Vishal Hui MD [facility] CPT-76093 Level 3 Est. Patient 15:53:00 CDT Renzo hTornton [facility] CPT-40046 Level 3 Est. Patient 15:50:30 CDT Renzo Thornton [facility] CPT-14307 Level 3 Est. Patient 16:55:24 CDT Vishal Hui MD [facility] Procedures Code Procedure Name Date Entry Date Standard Description CPT-69945 Abx/Therapy Injection 17:34:30 [employer] CPT-77620 Nexplanon Removal with Reinsertion 14:09:32 CDT CPT-J7307 Nexplanon (Implant) 14:09:32 CDT CPT-OV Office Visit 14:09:32 CDT CPT-93417 UA w micro - LAB USE ONLY 16:21:13 CDT CPT-88289 Wet Mount - LAB USE ONLY 16:21:13 CDT CPT-24557 First Vx - Ix admin for Medicare patients 14:37:47 CDT CPT-04890 Fluzone Preservative Free Intramuscular Suspension 14:37 :47 CDT CPT-46450 Abx/Therapy Injection 13:54:22 CDT CPT-89894 Abx/Therapy Injection 08:47:09 CDT CPT-17622 Abx/Therapy Injection 13:29:56 CDT CPT-47494 Abx/Therapy Injection 08:36:16 CDT CPT-49523 Wet Mount - LAB USE ONLY 17:44:58 CDT CPT-20881 UA w micro - LAB USE ONLY 17:44:58 CDT CPT-06203 CMP - LAB USE ONLY 17:44:58 CDT CPT-48752 Venipuncture Draw Fee 17:44:58 CDT CPT-54052 Cervical Min 4V - XRAY USE ONLY 09:01:40 CDT CPT-31765 Chest 2V Frontal and Lat - XRAY USE ONLY 11:06:31 CDT CPT-71630 EKG Trac and Interp - XRAY USE ONLY 11:31:43 CDT 08/26 CPT-J3420 Vitamin B12 1000mcg (Cyanocobalamin) 08:10:26 [employer] 04/12 CPT-82040 Abx/Therapy Injection 08:10:26 [employer] CPT-G0438 Initial Annual Wellness Exam 19:01:01 [employer] CPT-J3420 Vitamin B12 1000mcg (Cyanocobalamin) 16:57:46 CDT 08/14 CPT-83921 Recombivax HB Injection Suspension 5 MCG/0.5ML 08:37:50 [employer] CPT-83715 Immunization Single Admin 08:37:50 [employer] CPT-J3420 Vitamin B12 1000mcg (Cyanocobalamin) 08:32:16 [employer] 03/11 CPT-24038 Abx/Therapy Injection 08:32:16 [employer] CPT-88736 Chest 2V Frontal and Lat 11:46:38 [employer] CPT-75628 Venipuncture Draw Fee 09:12:45 [employer] CPT-J3420 Vitamin B12 1000mcg (Cyanocobalamin) 08:50:15 [employer] 02/08 CPT-92143 Abx/Therapy Injection 08:50:15 [employer] CPT-Cryo Cryotherapy 10:19:35 [employer] CPT-000 Give Appropriate Flu Vaccine 09:22:16 CDT CPT-J3420 Vitamin B12 1000mcg (Cyanocobalamin) 19:08:57 CDT 01/11 CPT-45688 Abx/Therapy Injection 19:08:57 CDT CPT-J3420 Vitamin B12 1000mcg (Cyanocobalamin) 08:19:08 CDT 12/11 CPT-45653 Abx/Therapy Injection 08:19:08 CDT CPT-J3420 Vitamin B12 1000mcg (Cyanocobalamin) 14:48:00 CDT 11/09 CPT-38070 Abx/Therapy Injection 14:47:59 CDT CPT-J3420 Vitamin B12 1000mcg (Cyanocobalamin) 08:34:04 CDT 10/09 CPT-79642 Abx/Therapy Injection 08:34:04 CDT CPT-J3420 Vitamin B12 1000mcg (Cyanocobalamin) 09:18:52 CDT 09/11 CPT-14130 Abx/Therapy Injection 09:18:52 CDT CPT-J3420 Vitamin B12 1000mcg (Cyanocobalamin) 08:35:44 CDT 09/04 CPT-06983 Abx/Therapy Injection 08:35:44 CDT CPT-78590 Immunization Single Admin 11:07:16 CDT CPT-28490 Hepatitis B adult IM 11:07:16 CDT CPT-J3420 Vitamin B12 1000mcg (Cyanocobalamin) 11:00:49 CDT 08/28 CPT-J1040 Depo Medrol 80 mg (Methyl Prednisolone Acetate) 11:00: 49 CDT CPT-90417 Abx/Therapy Injection 11:00:49 CDT CPT-J1040 Depo Medrol 80 mg (Methyl Prednisolone Acetate) 09:16: 23 CDT CPT-J3420 Vitamin B12 1000mcg (Cyanocobalamin) 08:27:05 CDT 08/20 CPT-69750 Abx/Therapy Injection 08:27:05 CDT CPT-68063 Recombivax HB Injection Suspension 5 MCG/0.5ML 10:00:41 CDT CPT-34781 Administration single or combination vaccine inc oral 10 :00:41 CDT CPT-02234 Sono transvag pelvis non OB uterus ovaries cervix 16:36: 57 CDT CPT-05786 LS spine comp w obliq 09:50:55 [employer] CPT-60876 Abd compl w upright 09:50:55 [employer] CPT-J1100 Decadron 4mg (Dexamethasone) 15:51:24 [employer] CPT-J1030 Depo Medrol 40 mg (Methyl Prednisolone Acetate) 15:51: 24 [employer] CPT-35039 Abx/Therapy Injection 15:51:24 [employer] CPT-J1100 Decadron 4mg (Dexamethasone) 15:26:33 [employer] CPT-J1030 Depo Medrol 40 mg (Methyl Prednisolone Acetate) 15:26: 33 [employer] CPT-71126 Sono retroperitoneal complete kidneys and bladder 17:15: 30 CDT CPT-01576 Abd compl w upright 16:09:25 CDT CPT-J1100 Decadron 8mg (Dexamethasone) 17:07:57 CDT CPT-98307 Abx/Therapy Injection 17:07:57 CDT CPT-J1100 Decadron 8mg (Dexamethasone) 16:55:24 CDT CPT-74810 Chest 2V Frontal and Lat 16:32:44 CDT
--- OUTSIDE RECORDS SUMMARY | 2016-11-04 19:30 | XMS REPORT | Clinical Summary ---
Author Author Admin, Dereck Organization [facility] Address Unknown Phone Unavailable Allergies, Adverse Reactions, [...] sites Morbid obesity 278.01 Active Juliet Kimbrough [employer] Morbid obesity 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 Active Juliet Kimbrough [employer] LICENSEE Dependence on other enabling machines and devices [...] 17GMS DAILY IN WATER POLYETHYLENE GLYCOL 3350 68415606789 Active Vishal Hui MD Active METOPROLOL TARTRATE 25 MG ORAL TABS 1/2 tablet twice daily for heart rate and blood pressure METOPROLOL TARTRATE 04576508252 Active Renzo Thornton DO Active VALIUM 5 MG TAB Take 1-2 tablets daily DIAZEPAM 78637917611 Active Ahmet Carbajal MD Active VIIBRYD 10 MG ORAL TABS Take 1 tablet once a day VILAZODONE HCL 43144901492 Active Ahmet Carbajal MD Active DICLOFENAC POTASSIUM TABS Take 1 tablet twice a day (pt. is not sure of the dose.) DICLOFENAC POTASSIUM TABS 82660509929 Active Ahmet Carbajal MD Active MIRALAX PACK 1 po qd PRN Constipation POLYETHYLENE GLYCOL 3350 95135319198 No Longer Active Ahmet Carbajal MD Active MINIPRESS 2 MG CAPS 4 cap po at night PRAZOSIN HCL 00347829716 No Longer Active Ahmet Carbajal MD Active PIROXICAM 20 MG CAPS 1 cap po qd PRN Pain PIROXICAM 81452142235 No Longer Active Ahmet Carbajal MD Active TRAMADOL HCL 50 MG TABS 1-2 po TID PRN Pain TRAMADOL HCL 01569356422 No Longer Active Ahmet Carbajal MD Active METOPROLOL TARTRATE 50 MG TAB 1 po bid METOPROLOL TARTRATE 40571201959 No Longer Active Ahmet Carbajal MD Active ABILIFY 15 MG ORAL TABS 1 tab daily ARIPIPRAZOLE 92575325779 No Longer Active Ahmet Carbajal MD Active PROZAC 20 MG ORAL CAPS 1 tab daily FLUOXETINE HCL 04968018922 No Longer Active Ahmet Carbajal MD Active AMBIEN 5 MG ORAL TABS 1 tab at bedtime ZOLPIDEM TARTRATE 69299454527 No Longer Active Ahmet Carbajal MD Active PREDNISONE 20 MG TAB 2 tabs daily for 4 days, 1 tab daily for 4 days, 1/2 tab daily for 4 days PREDNISONE 79326909842 No Longer Active Ahmet Carbajal MD Active KEFLEX 500 MG CAP 1 po TID x 10 days CEPHALEXIN 68441816952 No Longer Active Vishal Hui MD Active ABILIFY MAINTENA 400 MG IM SUSR Injection once per month ARIPIPRAZOLE 06173471064 Active Juliet [employer] LICENSEE Active IMITREX 50 MG ORAL TABS 1/2 tab every 6 hours prn SUMATRIPTAN SUCCINATE 38810625662 Active Jillina Frazell [employer] LICENSEE Active TOPAMAX 50 MG ORAL TABS 1 tab twice daily TOPIRAMATE 67374357042 Active Vishal Hui MD Active SAPHRIS 5 MG SUBL 1 po bid ASENAPINE MALEATE 40829718896 No Longer Active Jillina Mauricio NORIEGA Active LATUDA 80 MG TABS Take one by mouth daily LURASIDONE HCL 81949378941 No Longer Active Pacollina Mauricio NORIEGA Active AMLODIPINE BESYLATE 5 MG TABS 1 tablet by mouth daily AMLODIPINE BESYLATE 52639070433 No Longer Active Pacollina Mauricio NORIEGA Active AMITRIPTYLINE HCL 100 MG TAB one at hs AMITRIPTYLINE HCL 47548259246 No Longer Active Vishal Hui MD Active TRAZODONE HCL 100 MG TAB take 1 at bedtime TRAZODONE HCL 44600411774 No Longer Active Vishal Hui MD Active VYVANSE 40 MG CAPS 1 daily, LISDEXAMFETAMINE DIMESYLATE 26462432811 No Longer Active Vishal Hui MD Active IBUPROFEN 600 MG TAB 1 po TID PRN IBUPROFEN 68470311538 No Longer Active Vishal Hui MD Active PROZAC 20 MG CAP Take one by mouth daily FLUOXETINE HCL 44175944493 No Longer Active Vishal Hui MD Active ZOFRAN 4 MG TABS 1 po q6hr PRN Nausea ONDANSETRON HCL Active Vishal Hui MD Active BACTRIM DS 800-160 MG TABS 1 pill by mouth twice daily SULFAMETHOXAZOLE-TRIMETHOPRIM 87890054876 No Longer Active Sahara Rodriguez MD PhD Active DIFLUCAN 150 MG TAB 1 tablet by mouth daily FLUCONAZOLE 32302195414 No Longer Active Vishal Hui MD Active TIZANIDINE HCL 4 MG TABS 1 po q6hr PRN Muscle Spasm/Back Pain TIZANIDINE HCL 99653092787 Active Vishal Hui MD Active CLINDAMYCIN HCL 150 MG CAPS 1 four times a day CLINDAMYCIN HCL 06894160878 No Longer Active Neeraj Collins MD Active KEFLEX 500 MG ORAL CAPS 1 cap QID by mouth CEPHALEXIN 27441834590 No Longer Active Neeraj Collins MD Active DIFLUCAN 150 MG TABS 1 pill every other day x 2 doses FLUCONAZOLE 41761394551 No Longer Active Sahara Rodriguez MD PhD Active MELATONIN 3 MG CAPS 2 po q hs MELATONIN 20168186027 No Longer Active Sahara Rodriguez MD PhD Active MULTIVITAMINS CAPS Take one by mouth daily MULTIPLE VITAMIN 36520068093 No Longer Active Sahara Rodriguez MD PhD Active BACTRIM DS 800-160 MG TAB 1 tab by mouth twice daily TRIMETHOPRIM-SULFAMETHOXAZOLE 36780641145 No Longer Active Sahara Rodriguez MD PhD Active [facility] PROBIOTIC ORAL CHEW 2 daily po PROBIOTIC PRODUCT 45752188809 No Longer Active Sahara Rodriguez MD PhD Active BACTRIM DS 800-160 MG TABS 1 po BID x 7 days SULFAMETHOXAZOLE-TRIMETHOPRIM 74683235188 No Longer Active Vishal Hui MD Active CHANTIX STARTING MONTH EARNEST 0.5 MG X 11 & 1 MG X 42 TABS 0.5mg daily for 3 days , then 0.5mg BID for 4 days, then 1mg BID VARENICLINE TARTRATE 82577736101 No Longer Active TAMARA Gray Active VERAPAMIL HCL CR 120 MG TAB CR 1 po bid VERAPAMIL HCL 09956805200 No Longer Active Vishal Hui MD Active METOPROLOL SUCCINATE 50 MG TB24 1 tablet by mouth daily METOPROLOL SUCCINATE 74278400338 No Longer Active Vishal Hui MD Active SAPHRIS 10 MG SUBL 1 tab po bid ASENAPINE MALEATE 86066839469 No Longer Active Vishal Hiu MD Active LISINOPRIL 20 MG TABS 1 tab po qd LISINOPRIL 92201676827 No Longer Active Vishal Hui MD Active BENADRYL 25 MG CAP 2 po tid prn anxiety DIPHENHYDRAMINE HCL 83862242873 Active Vishal Hui MD Active LATUDA 20 MG TABS Take one by mouth daily LURASIDONE HCL 86121660124 No Longer Active Vishal Hui MD Active TRAZODONE HCL 50 MG TABS 1/2 tab po qd prn for anxiety TRAZODONE HCL 75377881964 No Longer Active Vishal Hui MD Active OMEPRAZOLE 20 MG TBEC 1 po q a.m. 30min prior to first food intake OMEPRAZOLE 41098042052 Active Vishal Hui MD Active RANITIDINE HCL 150 MG CAPS 1 twice a day RANITIDINE HCL 40179197788 Active Vishal Hui MD Active LINZESS 290 MCG CAPS Take one by mouth daily LINACLOTIDE 15912424955 No Longer Active Vishal Hui MD Active SAPHRIS 5 MG SUBL 1 tab po qd ASENAPINE MALEATE 70331894852 No Longer Active Vishal Hui MD Active ZALEPLON 10 MG CAPS 1 cap po every other night ZALEPLON 19913755883 No Longer Active Vishal Hui MD Active LYRICA 50 MG CAPS 1 tab po TID PREGABALIN 98100834803 No Longer Active Vishal Hui MD Active LORATADINE 10 MG TABS 1 tab po qd LORATADINE 84287347814 No Longer Active Vishal Hui MD Active VERAPAMIL HCL ER 180 MG CR-TABS 1 tab po bid VERAPAMIL HCL 84425340202 No Longer Active Vishal Hui MD Active MIRALAX POWD 1 capfull once daily POLYETHYLENE GLYCOL 3350 57134826529 No Longer Active Vishal Hui MD Active PREDNISONE 20 MG TABS 1 tab po qd PREDNISONE 17827230247 No Longer Active Renzo Thornton DO Active LEVOFLOXACIN 500 MG TABS 1 tab po qd LEVOFLOXACIN 00472453236 No Longer Active Renzo Thornton DO Active BUSPIRONE HCL 15 MG TABS 1 tab po TID BUSPIRONE HCL 07582268270 No Longer Active Renzo Thornton DO Active BENZTROPINE MESYLATE 1 MG TABS 1 tab po qd BENZTROPINE MESYLATE 33627119792 No Longer Active Renzo Thornton DO Active ATENOLOL 25 MG TABS 1 tab po qd ATENOLOL 36730898737 No Longer Active Renzo Thornton DO Active ESCITALOPRAM OXALATE 20 MG TABS 1 tab po qd ESCITALOPRAM OXALATE 72269596927 No Longer Active Renzo Thornton DO Active ADVAIR DISKUS 250-50 MCG/DOSE AEPB 1 puff BID FLUTICASONE-SALMETEROL 09453985274 No Longer Active Renzo Thornton DO Active PREDNISONE 20 MG TAB 2 tabs daily for 3 days, 1 tab daily for 3 days, 1/2 tab daily for 2 days PREDNISONE 34126278502 No Longer Active Vishal Hui MD Active CEFDINIR 300 MG CAPS by mouth twice a day CEFDINIR 82731445005 No Longer Active Vishal Hui MD Active LANSOPRAZOLE 30 MG CPDR 1 cap po qd LANSOPRAZOLE 68856858896 No Longer Active Vishal Hui MD Active BACLOFEN 20 MG TABS 1 tab po tid BACLOFEN 09469473841 No Longer Active Vishal Hui MD Active ADVAIR DISKUS 250-50 MCG/DOSE AEPB 1 puff BID ADVAIR DISKUS 250-50 MCG/DOSE AEPB FLUTICASONE-SALMETEROL Inactive ESCITALOPRAM OXALATE 20 MG TABS 1 tab po qd ESCITALOPRAM OXALATE 20 MG TABS 670670 ESCITALOPRAM OXALATE Inactive ATENOLOL 25 MG TABS 1 tab po qd ATENOLOL 25 MG TABS 772336 ATENOLOL Inactive BENZTROPINE MESYLATE 1 MG TABS 1 tab po qd BENZTROPINE MESYLATE 1 MG TABS 633929 BENZTROPINE MESYLATE Inactive BUSPIRONE HCL 15 MG TABS 1 tab po TID BUSPIRONE HCL 15 MG TABS 235090 BUSPIRONE HCL Inactive LEVOFLOXACIN 500 MG TABS 1 tab po qd LEVOFLOXACIN 500 MG TABS 432900 LEVOFLOXACIN Inactive PREDNISONE 20 MG TABS 1 tab po qd PREDNISONE 20 MG TABS 315532 PREDNISONE Inactive MIRALAX POWD 1 capfull once daily MIRALAX POWD 889884 POLYETHYLENE GLYCOL 3350 Inactive VERAPAMIL HCL ER 180 MG CR-TABS 1 tab po bid VERAPAMIL HCL ER 180 MG CR-TABS VERAPAMIL HCL Inactive LORATADINE 10 MG TABS 1 tab po qd LORATADINE 10 MG TABS 879965 LORATADINE Inactive LYRICA 50 MG CAPS 1 tab po TID LYRICA 50 MG CAPS PREGABALIN Inactive ZALEPLON 10 MG CAPS 1 cap po every other night ZALEPLON 10 MG CAPS 032211 ZALEPLON Inactive SAPHRIS 5 MG SUBL 1 tab po qd SAPHRIS 5 MG SUBL ASENAPINE MALEATE Inactive TRAZODONE HCL 50 MG TABS 1/2 tab po qd prn for anxiety TRAZODONE HCL 50 MG TABS 646643 TRAZODONE HCL Inactive LATUDA 20 MG TABS Take one by mouth daily LATUDA 20 MG TABS LURASIDONE HCL Inactive LISINOPRIL 20 MG TABS 1 tab po qd LISINOPRIL 20 MG TABS 825974 LISINOPRIL Inactive SAPHRIS 10 MG SUBL 1 [...] twice daily BACTRIM DS 800-160 MG TAB 977695 TRIMETHOPRIM-SULFAMETHOXAZOLE Inactive MULTIVITAMINS CAPS Take one by mouth daily MULTIVITAMINS CAPS MULTIPLE VITAMIN Inactive MELATONIN 3 MG CAPS 2 po q hs MELATONIN 3 MG CAPS 986655 MELATONIN Inactive KEFLEX 500 MG ORAL CAPS 1 cap QID by mouth KEFLEX 500 MG ORAL CAPS 100035 CEPHALEXIN Inactive CLINDAMYCIN HCL 150 MG CAPS 1 four times a day CLINDAMYCIN HCL 150 MG CAPS 19740326 CLINDAMYCIN HCL Inactive DIFLUCAN 150 MG TAB 1 tablet by mouth daily DIFLUCAN 150 MG TAB 377962 FLUCONAZOLE Inactive PROZAC 20 MG CAP Take one by mouth daily PROZAC 20 MG CAP 272024 FLUOXETINE HCL Inactive IBUPROFEN 600 MG TAB 1 po TID PRN IBUPROFEN 600 MG TAB 164542 IBUPROFEN Inactive VYVANSE 40 MG CAPS 1 daily, VYVANSE 40 MG CAPS LISDEXAMFETAMINE DIMESYLATE Inactive TRAZODONE HCL 100 MG TAB take 1 at bedtime TRAZODONE HCL 100 MG TAB 838311 TRAZODONE HCL Inactive AMITRIPTYLINE HCL 100 MG TAB one at hs AMITRIPTYLINE HCL 100 MG TAB 612143 AMITRIPTYLINE HCL Inactive AMLODIPINE BESYLATE 5 MG TABS 1 tablet by mouth daily AMLODIPINE BESYLATE 5 MG TABS 299430 AMLODIPINE BESYLATE Inactive LATUDA 80 MG TABS Take one by mouth daily LATUDA 80 MG TABS LURASIDONE HCL Inactive SAPHRIS 5 MG SUBL 1 po bid SAPHRIS 5 MG SUBL ASENAPINE MALEATE Inactive PREDNISONE 20 MG TAB 2 tabs daily for 4 days, 1 tab daily for 4 days, 1/2 tab daily for 4 days PREDNISONE 20 MG TAB 476738 PREDNISONE Inactive AMBIEN 5 MG ORAL TABS 1 tab at bedtime AMBIEN 5 MG ORAL TABS 194483 ZOLPIDEM TARTRATE Inactive PROZAC 20 MG ORAL CAPS 1 tab daily PROZAC 20 MG ORAL CAPS 993990 FLUOXETINE HCL Inactive ABILIFY 15 MG ORAL TABS 1 tab daily ABILIFY 15 MG ORAL TABS 891878 ARIPIPRAZOLE Inactive METOPROLOL TARTRATE 50 MG TAB 1 po bid METOPROLOL TARTRATE 50 MG TAB 370684 METOPROLOL TARTRATE Inactive TRAMADOL HCL 50 MG TABS 1-2 po TID PRN Pain TRAMADOL HCL 50 MG TABS 991227 TRAMADOL HCL Inactive PIROXICAM 20 MG CAPS 1 cap po qd PRN Pain PIROXICAM 20 MG CAPS 083558 PIROXICAM Inactive MINIPRESS 2 MG CAPS 4 cap po at night MINIPRESS 2 MG CAPS 030400 PRAZOSIN HCL Inactive MIRALAX PACK 1 po qd PRN Constipation MIRALAX PACK 909421 POLYETHYLENE GLYCOL 3350 Inactive CEFDINIR 300 MG CAPS by mouth twice a day CEFDINIR 300 MG CAPS 417809 CEFDINIR Inactive PREDNISONE 20 MG TAB 2 tabs daily for 3 days, 1 tab daily for 3 days, 1/2 tab daily for 2 days PREDNISONE 20 MG TAB 318138 PREDNISONE Inactive BACTRIM DS 800-160 MG TABS 1 po BID x 7 days BACTRIM DS 800-160 MG TABS 561265 SULFAMETHOXAZOLE-TRIMETHOPRIM Inactive DIFLUCAN 150 MG TABS 1 pill every other day x 2 doses DIFLUCAN 150 MG TABS 881624 FLUCONAZOLE Inactive BACTRIM DS 800-160 MG TABS 1 pill by mouth twice daily BACTRIM DS 800-160 MG TABS 545998 SULFAMETHOXAZOLE-TRIMETHOPRIM Inactive KEFLEX 500 MG CAP 1 po TID x 10 days KEFLEX 500 MG CAP 565870 CEPHALEXIN Inactive Advance Directives Directive Description Start [...] % 11.6-14.8 platelet count 394 10^3/MM^3 10*3/mm3 764-018 6114/01/11 leukocyte count, blood 13.8 10^3/MM^3 10*3/mm3 4.6-10.2 [...] Panel - Chemistry sodium, serum 139 mmol/L 916-888 4926/12/03 carbon dioxide, venous blood 28.5 mmol/L 21.0-32.0 [...] 5.5 % 4.3-6.0 cholesterol, serum 159 mg/dL 350-056 3818/12/03 triglyceride, serum, fasting 118 mg/dL 30-200 HDL [...] Panel - Chemistry sodium, serum 139 mmol/L 067-005 5162/12/22 carbon dioxide, venous blood 26.8 mmol/L 21.0-32.0 potassium, serum 4.2 mmol/L 3.5-5.2 chloride, serum 103 mmol/L 98-107 blood glucose 115 mg/dL 65-110 urea nitrogen, blood 20 mg/dL 7-18 creatinine, serum 0.90 mg/dL 0.55-1.30 alanine aminotransferase (SGPT), serum 38 U/L 12-78 aspartate aminotransferase (SGOT), serum 19 U/L 15-37 calcium, serum 8.6 mg/dL 8.5-10.1 bilirubin, serum, total 0.30 mg/dL 0.00-1.00 sodium, serum 139 mmol/L 221-626 6730/01/11 carbon dioxide, venous blood 26.6 mmol/L 21.0-32.0 potassium, serum 4.1 mmol/L 3.5-5.2 chloride, serum 100 mmol/L 98-107 blood glucose 86 mg/dL 65-110 urea nitrogen, blood 16 mg/dL 7-18 creatinine, serum 1.00 mg/dL 0.55-1.30 alanine aminotransferase (SGPT), serum 48 U/L - aspartate aminotransferase (SGOT), serum 17 U/L 15-37 calcium, serum 9.1 mg/dL 8.5-10.1 bilirubin, serum, total 0.40 mg/dL 0.00-1.00 sodium, serum 142 mmol/L 663-922 2789/06/08 carbon dioxide, venous blood 27.6 mmol/L 21.0-32.0 [...] Rate - Chemistry sodium, serum 139 mmol/L 018-512 2864/12/11 carbon dioxide, venous blood 25.4 mmol/L 21.0-32.0 [...] 5.0-8.5 Encounters Code Encounter Date Provider Facility CPT-67636 Level 3 New Patient 16:53:37 CDT Albert Caldera MD [facility] CPT-05650 Level 3 Est. Patient 11:25:49 CDT Renzo Thornton DO [facility] CPT-62288 Level 3 Est. Patient 15:22:01 CDT Ahmet Carbajal MD [facility] CPT-73570 Level 4 Est. Patient 09:00:51 SIZE STAMPER Vishal Hui MD [facility] CPT-69262 Level 3 Est. Patient 11:37:33 SIZE STAMPER Vishal Hui MD [facility] CPT-09583 Level 3 Est. Patient 08:41:09 SIZE STAMPER Vishal Hui MD [facility] CPT-08678 Level 4 Est. Patient 10:19:35 SIZE STAMPER Vishal Hui MD [facility] CPT-80163 Level 3 Est. Patient 13:35:45 CDT Vishal Hui MD [facility] CPT-78273 Level 4 Est. Patient 10:08:37 CDT Vishal Hui MD [facility] [place][note 2]-64020 Level 3 Est. Patient 11:22:10 CDT Vishal Hui MD [facility] CPT-15634 Level 3 Est. Patient 11:03:32 CDT Sahara Rodriguez MD [facility]-42606 Level 3 Est. Patient 09:41:35 CDT Vishal Hui MD [facility]-00503 Level 3 Est. Patient 12:00:41 CDT Neeraj Collins MD [facility] CPT-85730 Level 3 Est. Patient 09:16:24 CDT Vishal Hui MD [facility] [place][note 2]-95793 Level 4 Est. Patient 13:59:09 CDT Neeraj Collins MD [facility] [place][note 2]-09019 Level 3 Est. Patient 15:19:43 CDT Renzo Thornton DO [facility] CPT-75516 Level 3 Est. Patient 18:10:26 CDT Sahara Rodriguez MD [facility] [place]-52509 Level 3 Est. Patient 14:49:50 CDT Vishal Hui MD [facility] [place][note 2]-52590 Level 4 Est. Patient 18:41:46 CDT Neeraj Collins MD [facility] [place][note 2]-20590 Level 4 Est. Patient 09:18:38 SIZE STAMPER Vishal Hui MD [facility]-91622 Level 3 Est. Patient 14:43:55 SIZE STAMPER Vishal Hui MD [facility] [place][note 2]-82558 Level 3 Est. Patient 15:26:33 SIZE STAMPER Sahara Rodriguez MD [facility] [place]-06834 Level 3 Est. Patient 10:32:14 SIZE STAMPER Vishal Hui MD [facility] [place][note 2]-38460 Level 3 Est. Patient 15:12:52 SIZE STAMPER Vishal Hui MD [facility] CPT-84071 Level 4 Est. Patient 09:19:27 CDT Vishal Hui MD [facility] CPT-48542 Level 3 Est. Patient 15:53:00 CDT Renzo Thornton [facility] CPT-16261 Level 3 Est. Patient 15:50:30 CDT Renzo Thornton [facility] CPT-58726 Level 3 Est. Patient 16:55:24 CDT Vishal Hui MD [facility] Procedures Code Procedure Name Date Entry Date Standard Description CPT-92903 EKG Trac and Interp - XRAY USE ONLY 11:31:43 CDT 08/26 CPT-J3420 Vitamin B12 1000mcg (Cyanocobalamin) 08:10:26 SIZE STAMPER 04/12 CPT-78831 Abx/Therapy Injection 08:10:26 SIZE STAMPER CPT-G0438 Initial Annual Wellness Exam 19:01:01 SIZE STAMPER CPT-J3420 Vitamin B12 1000mcg (Cyanocobalamin) 16:57:46 CDT 08/14 CPT-29409 Recombivax HB Injection Suspension 5 MCG/0.5ML 08:37:50 SIZE STAMPER CPT-89787 Immunization Single Admin 08:37:50 SIZE STAMPER CPT-J3420 Vitamin B12 1000mcg (Cyanocobalamin) 08:32:16 SIZE STAMPER 03/11 CPT-99833 Abx/Therapy Injection 08:32:16 SIZE STAMPER CPT-42994 Chest 2V Frontal and Lat 11:46:38 SIZE STAMPER CPT-07381 Venipuncture Draw Fee 09:12:45 SIZE STAMPER CPT-J3420 Vitamin B12 1000mcg (Cyanocobalamin) 08:50:15 SIZE STAMPER 02/08 CPT-44671 Abx/Therapy Injection 08:50:15 SIZE STAMPER CPT-Cryo Cryotherapy 10:19:35 SIZE STAMPER CPT-000 Give Appropriate Flu Vaccine 09:22:16 CDT CPT-J3420 Vitamin B12 1000mcg (Cyanocobalamin) 19:08:57 CDT 01/11 CPT-93363 Abx/Therapy Injection 19:08:57 CDT CPT-J3420 Vitamin B12 1000mcg (Cyanocobalamin) 08:19:08 CDT 12/11 CPT-05445 Abx/Therapy Injection 08:19:08 CDT CPT-J3420 Vitamin B12 1000mcg (Cyanocobalamin) 14:48:00 CDT 11/09 CPT-04228 Abx/Therapy Injection 14:47:59 CDT CPT-J3420 Vitamin B12 1000mcg (Cyanocobalamin) 08:34:04 CDT 10/09 CPT-19413 Abx/Therapy Injection 08:34:04 CDT CPT-J3420 Vitamin B12 1000mcg (Cyanocobalamin) 09:18:52 CDT 09/11 CPT-34516 Abx/Therapy Injection 09:18:52 CDT CPT-J3420 Vitamin B12 1000mcg (Cyanocobalamin) 08:35:44 CDT 09/04 CPT-95139 Abx/Therapy Injection 08:35:44 CDT CPT-14530 Immunization Single Admin 11:07:16 CDT CPT-92808 Hepatitis B adult IM 11:07:16 CDT CPT-J3420 Vitamin B12 1000mcg (Cyanocobalamin) 11:00:49 CDT 08/28 CPT-J1040 Depo Medrol 80 mg (Methyl Prednisolone Acetate) 11:00: 49 CDT CPT-08557 Abx/Therapy Injection 11:00:49 CDT CPT-J1040 Depo Medrol 80 mg (Methyl Prednisolone Acetate) 09:16: 23 CDT CPT-J3420 Vitamin B12 1000mcg (Cyanocobalamin) 08:27:05 CDT 08/20 CPT-53305 Abx/Therapy Injection 08:27:05 CDT CPT-81239 Recombivax HB Injection Suspension 5 MCG/0.5ML 10:00:41 CDT CPT-15716 Administration single or combination vaccine inc oral 10 :00:41 CDT CPT-03965 Sono transvag pelvis non OB uterus ovaries cervix 16:36: 57 CDT CPT-38892 LS spine comp w obliq 09:50:55 SIZE STAMPER CPT-87142 Abd compl w upright 09:50:55 SIZE STAMPER CPT-J1100 Decadron 4mg (Dexamethasone) 15:51:24 SIZE STAMPER CPT-J1030 Depo Medrol 40 mg (Methyl Prednisolone Acetate) 15:51: 24 SIZE STAMPER CPT-55890 Abx/Therapy Injection 15:51:24 SIZE STAMPER CPT-J1100 Decadron 4mg (Dexamethasone) 15:26:33 SIZE STAMPER CPT-J1030 Depo Medrol 40 mg (Methyl Prednisolone Acetate) 15:26: 33 SIZE STAMPER CPT-65836 Sono retroperitoneal complete kidneys and bladder 17:15: 30 CDT CPT-67312 Abd compl w upright 16:09:25 CDT CPT-J1100 Decadron 8mg (Dexamethasone) 17:07:57 CDT CPT-28515 Abx/Therapy Injection 17:07:57 CDT CPT-J1100 Decadron 8mg (Dexamethasone) 16:55:24 CDT CPT-34953 Chest 2V Frontal and Lat 16:32:44 CDT
--- OUTSIDE RECORDS SUMMARY | 2016-11-04 19:31 | XMS REPORT | Clinical Summary ---
Author Author Admin, QIE Organization [facility] Address Unknown Phone Unavailable Allergies, Adverse Reactions, [...] 1 pill by mouth twice daily SULFAMETHOXAZOLE-TRIMETHOPRIM [id number] No Longer Active Sahara Rodriguez MD PhD Active DIFLUCAN 150 MG TAB 1 tablet by mouth daily FLUCONAZOLE 23629608247 No Longer Active Vishal Hui MD Active TIZANIDINE HCL 4 MG TABS 1 po q6hr PRN Muscle Spasm/Back Pain TIZANIDINE HCL 83434380134 Active Vishal Hui MD Active CLINDAMYCIN HCL 150 MG CAPS 1 four times a day CLINDAMYCIN HCL 07644107034 No Longer Active Neeraj Collins MD Active KEFLEX 500 MG ORAL CAPS 1 cap QID by mouth CEPHALEXIN 13399991889 No Longer Active Neeraj Collins MD Active DIFLUCAN 150 MG TABS 1 pill every other day x 2 doses FLUCONAZOLE 41929310690 No Longer Active Sahara Rodriguez MD PhD Active MELATONIN 3 MG CAPS 2 po q hs MELATONIN 36966061022 No Longer Active Sahara Rodriguez MD PhD Active MULTIVITAMINS CAPS Take one by mouth daily MULTIPLE VITAMIN 46589672609 No Longer Active Sahara Rodriguez MD PhD Active BACTRIM DS 800-160 MG TAB 1 tab by mouth twice daily TRIMETHOPRIM-SULFAMETHOXAZOLE 52196914274 No Longer Active Sahara Rodriguez MD PhD Active [facility] PROBIOTIC ORAL CHEW 2 daily po PROBIOTIC PRODUCT 38504472397 No Longer Active Sahara Rodriguez MD PhD Active IBUPROFEN 600 MG TAB 1 po TID PRN IBUPROFEN 70775127283 Active Luigi Martínez [employer] Active BACTRIM DS 800-160 MG TABS 1 po BID x 7 days SULFAMETHOXAZOLE-TRIMETHOPRIM 45238513922 No Longer Active Vishal Hui MD Active CHANTIX STARTING MONTH EARNEST 0.5 MG X 11 & 1 MG X 42 TABS 0.5mg daily for 3 days , then 0.5mg BID for 4 days, then 1mg BID VARENICLINE TARTRATE 84245385997 No Longer Active TAMARA Gray Active METOPROLOL TARTRATE 50 MG TAB 1 po bid METOPROLOL TARTRATE 82171467453 Active Vishal Hui MD Active TRAZODONE HCL 100 MG TAB take 1 at bedtime TRAZODONE HCL 05903701485 Active Vishal Hui MD Active AMLODIPINE BESYLATE 5 MG TABS 1 tablet by mouth daily AMLODIPINE BESYLATE 48977250916 Active Vishal Hui MD Active VERAPAMIL HCL CR 120 MG TAB CR 1 po bid VERAPAMIL HCL 03213565775 No Longer Active Vishal Hui MD Active METOPROLOL SUCCINATE 50 MG TB24 1 tablet by mouth daily METOPROLOL SUCCINATE 45003630345 No Longer Active Vishal Hui MD Active TRAMADOL HCL 50 MG TABS 1-2 po TID PRN Pain TRAMADOL HCL 85447885416 Active Vishal Hui MD Active SAPHRIS 5 MG SUBL 1 po bid ASENAPINE MALEATE 67856201916 Active Vishal Hui MD Active SAPHRIS 10 MG SUBL 1 tab po bid ASENAPINE MALEATE 29857574777 No Longer Active Vishal Hui MD Active LISINOPRIL 20 MG TABS 1 tab po qd LISINOPRIL 08980019942 No Longer Active Vishal Hui MD Active BENADRYL 25 MG CAP 2 po tid prn anxiety DIPHENHYDRAMINE HCL 88952083326 Active Vishal Hui MD Active LATUDA 80 MG TABS Take one by mouth daily LURASIDONE HCL 78699018018 Active Vishal Hui MD Active LATUDA 20 MG TABS Take one by mouth daily LURASIDONE HCL 12957484970 No Longer Active Vishal Hui MD Active TRAZODONE HCL 50 MG TABS 1/2 tab po qd prn for anxiety TRAZODONE HCL 58314086398 No Longer Active Vishal Hui MD Active PIROXICAM 20 MG CAPS 1 cap po qd PRN Pain PIROXICAM 88164287002 Active Vishal Hui MD Active OMEPRAZOLE 20 MG TBEC 1 po q a.m. 30min prior to first food intake OMEPRAZOLE 14835758605 Active Vishal Hui MD Active RANITIDINE HCL 150 MG CAPS 1 twice a day RANITIDINE HCL 91109311393 Active Vishal Hui MD Active PROZAC 20 MG CAP Take one by mouth daily FLUOXETINE HCL 14060412843 Active Vishal Hui MD Active LINZESS 290 MCG CAPS Take one by mouth daily LINACLOTIDE 52303783110 Active Vishal Hui MD Active SAPHRIS 5 MG SUBL 1 tab po qd ASENAPINE MALEATE 65546035848 No Longer Active Vishal Hui MD Active ZALEPLON 10 MG CAPS 1 cap po every other night ZALEPLON 28447142642 No Longer Active Vishal Hui MD Active LYRICA 50 MG CAPS 1 tab po TID PREGABALIN 02809513843 No Longer Active Vishal Hui MD Active LORATADINE 10 MG TABS 1 tab po qd LORATADINE 18542042878 No Longer Active Vishal Hui MD Active VERAPAMIL HCL ER 180 MG CR-TABS 1 tab po bid VERAPAMIL HCL 26815239423 No Longer Active Vishal Hui MD Active MIRALAX POWD 1 capfull once daily POLYETHYLENE GLYCOL 3350 27521501520 No Longer Active Vishal Hui MD Active PREDNISONE 20 MG TABS 1 tab po qd PREDNISONE 93678984264 No Longer Active Renzo Thornton DO Active LEVOFLOXACIN 500 MG TABS 1 tab po qd LEVOFLOXACIN 24751354562 No Longer Active Renzo Thornton DO Active BUSPIRONE HCL 15 MG TABS 1 tab po TID BUSPIRONE HCL 20134959361 No Longer Active Renzo Thornton DO Active BENZTROPINE MESYLATE 1 MG TABS 1 tab po qd BENZTROPINE MESYLATE 10680782429 No Longer Active Renzo Thornton DO Active ATENOLOL 25 MG TABS 1 tab po qd ATENOLOL 94841648676 No Longer Active Renzo Thornton DO Active ESCITALOPRAM OXALATE 20 MG TABS 1 tab po qd ESCITALOPRAM OXALATE 09487951456 No Longer Active Renzo Thornton DO Active ADVAIR DISKUS 250-50 MCG/DOSE AEPB 1 puff BID FLUTICASONE-SALMETEROL 04443108696 No Longer Active Renzo Thornton DO Active PREDNISONE 20 MG TAB 2 tabs daily for 3 days, 1 tab daily for 3 days, 1/2 tab daily for 2 days PREDNISONE 54187807501 No Longer Active Vishal Hui MD Active CEFDINIR 300 MG CAPS by mouth twice a day CEFDINIR 01976201859 No Longer Active Vishal Hui MD Active LANSOPRAZOLE 30 MG CPDR 1 cap po qd LANSOPRAZOLE 37754558449 No Longer Active Vishal Hui MD Active TOPAMAX 25 MG TABS 1 tab po bid TOPIRAMATE 02464733406 Active Vishal Hui MD Active MINIPRESS 2 MG CAPS 1 cap po at night PRAZOSIN HCL 39426590145 Active Vishal Hui MD Active BACLOFEN 20 MG TABS 1 tab po tid BACLOFEN 05663401141 No Longer Active Vishal Hui MD Active ADVAIR DISKUS 250-50 MCG/DOSE AEPB 1 puff BID ADVAIR DISKUS 250-50 MCG/DOSE AEPB FLUTICASONE-SALMETEROL Inactive ESCITALOPRAM OXALATE 20 MG TABS 1 tab po qd ESCITALOPRAM OXALATE 20 MG TABS 738290 ESCITALOPRAM OXALATE Inactive ATENOLOL 25 MG TABS 1 tab po qd ATENOLOL 25 MG TABS 397464 ATENOLOL Inactive BENZTROPINE MESYLATE 1 MG TABS 1 tab po qd BENZTROPINE MESYLATE 1 MG TABS 150718 BENZTROPINE MESYLATE Inactive BUSPIRONE HCL 15 MG TABS 1 tab po TID BUSPIRONE HCL 15 MG TABS 638615 BUSPIRONE HCL Inactive LEVOFLOXACIN 500 MG TABS 1 tab po qd LEVOFLOXACIN 500 MG TABS 397357 LEVOFLOXACIN Inactive PREDNISONE 20 MG TABS 1 tab po qd PREDNISONE 20 MG TABS 887764 PREDNISONE Inactive MIRALAX POWD 1 capfull once daily MIRALAX POWD 415090 POLYETHYLENE GLYCOL 3350 Inactive VERAPAMIL HCL ER 180 MG CR-TABS 1 tab po bid VERAPAMIL HCL ER 180 MG CR-TABS VERAPAMIL HCL Inactive LORATADINE 10 MG TABS 1 tab po qd LORATADINE 10 MG TABS 059605 LORATADINE Inactive LYRICA 50 MG CAPS 1 tab po TID LYRICA 50 MG CAPS PREGABALIN Inactive ZALEPLON 10 MG CAPS 1 cap po every other night ZALEPLON 10 MG CAPS 749597 ZALEPLON Inactive SAPHRIS 5 MG SUBL 1 tab po qd SAPHRIS 5 MG SUBL ASENAPINE MALEATE Inactive TRAZODONE HCL 50 MG TABS 1/2 tab po qd prn for anxiety TRAZODONE HCL 50 MG TABS 273858 TRAZODONE HCL Inactive LATUDA 20 MG TABS Take one by mouth daily LATUDA 20 MG TABS LURASIDONE HCL Inactive LISINOPRIL 20 MG TABS 1 tab po qd LISINOPRIL 20 MG TABS 691428 LISINOPRIL Inactive SAPHRIS 10 MG SUBL 1 [...] po q hs MELATONIN 3 MG CAPS 016032 MELATONIN Inactive KEFLEX 500 MG ORAL CAPS 1 cap QID by mouth KEFLEX 500 MG ORAL CAPS 277959 CEPHALEXIN Inactive CLINDAMYCIN HCL 150 MG CAPS 1 four times a day CLINDAMYCIN HCL 150 MG CAPS 131972 CLINDAMYCIN HCL Inactive DIFLUCAN 150 MG TAB 1 tablet by mouth daily DIFLUCAN 150 MG TAB 19751126 FLUCONAZOLE Inactive CEFDINIR 300 MG CAPS by mouth twice a day CEFDINIR 300 MG CAPS 756668 CEFDINIR Inactive PREDNISONE 20 MG TAB 2 tabs daily for 3 days, 1 tab daily for 3 days, 1/2 tab daily for 2 days PREDNISONE 20 MG TAB 222812 PREDNISONE Inactive BACTRIM DS 800-160 MG TABS 1 po BID x 7 days BACTRIM DS 800-160 MG TABS SULFAMETHOXAZOLE-TRIMETHOPRIM Inactive DIFLUCAN 150 MG TABS 1 pill every other day x 2 doses DIFLUCAN 150 MG TABS 535239 FLUCONAZOLE Inactive BACTRIM DS 800-160 MG TABS [...] U/L Chart Maintenance: outside labs entered on [employer] - Hematology leukocyte count, blood 8.9 10*3/mm3 hemoglobin, blood 13.2 g/dL platelet count 364 10*3/mm3 Lab Report: CBC, Comp. Metabolic Panel, Free Thyroxine (L), Thyroid Stim ... - Chemistry sodium, serum 140 mmol/L 517-767 9476/05/28 potassium, serum 4.2 mmol/L 3.5-5.2 chloride, serum [...] Panel - Chemistry sodium, serum 141 mmol/L 347-325 7486 potassium, serum 4.3 mmol/L 3.5-5.2 chloride, serum 106 mmol/L 98-107 carbon dioxide, venous blood 25.7 mmol/L 21.0-32.0 blood glucose 119 mg/dL 65-110 urea nitrogen, blood 22 mg/dL 7-18 creatinine, serum 0.90 mg/dL 0.60-1.30 alanine aminotransferase (SGPT), serum 28 U/L 78 aspartate aminotransferase (SGOT), serum 13 U/L 15-37 calcium, serum 8.5 mg/dL 8.5-10.1 bilirubin, serum, total 0.20 mg/dL 0.00-1.00 Lab Report: Comp. Metabolic Panel, Lipid Panel - Chemistry sodium, serum 139 mmol/L 562-335 0347/12/31 potassium, serum 4.8 mmol/L 3.5-5.2 chloride, serum 106 mmol/L 98-107 carbon dioxide, venous blood 24.3 mmol/L 21.0-32.0 blood glucose 90 mg/dL 65-110 urea nitrogen, blood 16 mg/dL 7-18 creatinine, serum 1.00 mg/dL 0.60-1.30 alanine aminotransferase (SGPT), serum 41 U/L aspartate aminotransferase (SGOT), serum 17 U/L 15-37 calcium, serum 8.6 mg/dL 8.5-10.1 bilirubin, serum, total 0.30 mg/dL 0.00-1.00 cholesterol, serum 108 mg/dL 497-709 3458/12/31 triglyceride, serum, fasting 120 mg/dL 30-200 HDL cholesterol, serum 28 mg/dL 32-96 LDL cholesterol, serum 56 mg/dL 0-130 Lab Report: HGBA1C - Chemistry hemoglobin A1C, blood, as % of total hemoglobin 5.3 % 4.3-6.0 Lab Report: MICROALBUMIN - Chemistry albumin/creatinine ratio, urine < 30 mg/g mg/g{creat} 0-29 Lab Report: MICROALBUMIN - Lab microalbumin, urine 10 0-19 Lab Report: [facility] Chemistry protein, total urine [...] semiquantitative 7.0 5.0-8.5 Lab Report: Varicella-Zoater Inga IgG,IgM/83808, HEP Be Antibody/556, RUB ... - Serology rubella antibody, serum, IgG 2.88 Encounters Code Encounter Date Provider Facility CPT-36932 Level 3 Est. Patient 11:22:10 CDT Vishal Hui MD [facility] CPT-38404 Level 3 Est. Patient 11:03:32 CDT Sahara Rodriguez MD PhD [facility] CPT-75898 Level 3 Est. Patient 09:41:35 CDT Vishal Hui MD [facility] CPT-38668 Level 3 Est. Patient 12:00:41 CDT Neeraj Collins MD [facility] CPT-76517 Level 3 Est. Patient 09:16:24 CDT Vishal Hui MD [facility]-11927 Level 4 Est. Patient 13:59:09 CDT Neeraj Collins MD [facility] CPT-53489 Level 3 Est. Patient 15:19:43 CDT Renzo Thornton [facility] CPT-97553 Level 3 Est. Patient 18:10:26 CDT Sahara Rodriguez MD PhD [facility]-40102 Level 3 Est. Patient 14:49:50 CDT Vishal Hui MD [facility] CPT-40831 Level 4 Est. Patient 18:41:46 CDT Neeraj Collins MD [facility] CPT-98819 Level 4 Est. Patient 09:18:38 [employer] Vishal Hui MD [facility] CPT-78037 Level 3 Est. Patient 14:43:55 [employer] Vishal Hui MD [facility] CPT-25997 Level 3 Est. Patient 15:26:33 [employer] Sahara Rodriguez MD PhD [facility]-76575 Level 3 Est. Patient 10:32:14 [employer] Vishal Hui MD [facility] CPT-49679 Level 3 Est. Patient 15:12:52 [employer] Vishal Hui MD [facility] CPT-00495 Level 4 Est. Patient 09:19:27 CDT Vishal Hui MD [facility] CPT-17578 Level 3 Est. Patient 15:53:00 CDT Renzo Thornton [facility] CPT-81019 Level 3 Est. Patient 15:50:30 CDT Renzo Thornton [facility] CPT-72672 Level 3 Est. Patient 16:55:24 CDT Vishal Hui MD [facility] Procedures Code Procedure Name Date Entry Date Standard Description CPT-J3420 Vitamin B12 1000mcg (Cyanocobalamin) 14:48:00 CDT 11/09 CPT-66612 Abx/Therapy Injection 14:47:59 CDT CPT-J3420 Vitamin B12 1000mcg (Cyanocobalamin) 08:34:04 CDT 10/09 CPT-56701 Abx/Therapy Injection 08:34:04 CDT CPT-J3420 Vitamin B12 1000mcg (Cyanocobalamin) 09:18:52 CDT 09/11 CPT-16042 Abx/Therapy Injection 09:18:52 CDT CPT-J3420 Vitamin B12 1000mcg (Cyanocobalamin) 08:35:44 CDT 09/04 CPT-94316 Abx/Therapy Injection 08:35:44 CDT CPT-83041 Immunization Single Admin 11:07:16 CDT CPT-53224 Hepatitis B adult IM 11:07:16 CDT CPT-J3420 Vitamin B12 1000mcg (Cyanocobalamin) 11:00:49 CDT 08/28 CPT-J1040 Depo Medrol 80 mg (Methyl Prednisolone Acetate) 11:00: 49 CDT CPT-99735 Abx/Therapy Injection 11:00:49 CDT CPT-J1040 Depo Medrol 80 mg (Methyl Prednisolone Acetate) 09:16: 23 CDT CPT-J3420 Vitamin B12 1000mcg (Cyanocobalamin) 08:27:05 CDT 08/20 CPT-34417 Abx/Therapy Injection 08:27:05 CDT CPT-67173 Recombivax HB Injection Suspension 5 MCG/0.5ML 10:00:41 CDT CPT-22286 Administration single or combination vaccine inc oral 10 :00:41 CDT CPT-21765 Sono transvag pelvis non OB uterus ovaries cervix 16:36: 57 CDT CPT-54837 LS spine comp w obliq 09:50:55 [employer]VISOR [employer] CPT-67387 Abd compl w upright 09:50:55 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 [employer] CPT-J1100 Decadron 4mg (Dexamethasone) 15:51:24 SUPERVISOR [employer] CPT-J1030 Depo Medrol 40 mg (Methyl Prednisolone Acetate) 15:51: 24 SUPERVISOR [employer] CPT-70828 Abx/Therapy Injection 15:51:24 SUPERVISOR [employer] CPT-J1100 Decadron 4mg (Dexamethasone) 15:26:33 SUPERVISOR [employer] CPT-J1030 Depo Medrol 40 mg (Methyl Prednisolone Acetate) 15:26: 33 SUPERVISOR [employer] CPT-69776 Sono retroperitoneal complete kidneys and bladder 17:15: 30 CDT CPT-50476 Abd compl w upright 16:09:25 CDT CPT-J1100 Decadron 8mg (Dexamethasone) 17:07:57 CDT CPT-63895 Abx/Therapy Injection 17:07:57 CDT CPT-J1100 Decadron 8mg (Dexamethasone) 16:55:24 CDT CPT-52490 Chest 2V Frontal and Lat 16:32:44 CDT
--- OUTSIDE RECORDS SUMMARY | 2016-11-04 19:32 | XMS REPORT ---
Author Author [email or web address] Medical Staff Organization [facility] Address [address] [place], [place] [address] Phone [phone] Summary purpose TRANSITION OF CARE AUTO GENERATION [...] tests and/or laboratory data RESULTS Routine Urinalysis 48-35-241963:30:00 Result Normal Range Units Color YELLOW Clarity Cloudy Specific [place] 1.015 1.003-1.035 pH 6.0 4.5-8.0 Glucose NEGATIVE [...] 10.0-30.0 ug/ml Salicylate 3.2 2.0-20.0 mg/dl Chemistry :35:00 Result Normal Range Units Sodium 139 134-145 [...] 10-20 Estimated GFR 83 >=60 mL/min/1.7 Hematology :35:00 Result Normal Range Units WBC 10.1 4.8-10.8 103/uL RBC 4.6 4.2-5.4 106/uL HGB 14.1 12.0-16.0 g/dl HCT 42.4 36.9-47.0 % MCV 91.6 81-99 FL MCH 30.5 27-31 pg MCHC 33.3 33-37 g/dl RDW 11.9 11.5-15.5 % PLT 369 130-400 103/uL MPV 10.1 7.3-10.4 FL Special Chemistry :35:00 Result Normal Range Units ETOH < 3 0-5 mg/dl Body Fluid 30:00 Result Normal Range Units pH 6.0 4.5-8.0 Radiology Results :35:00 Result Normal Range Units MPV 10.1 7.3-10.4 FL History of procedures No procedures recorded for this patient visit. Functional status Functional Status Finding Observation Time Abdomen Appearance obese :30 Abdomen soft :30 Bowel Sounds present :30 Vick no [id number] Urination normal :30 Quality sym/unlabored :30 Cough absent : Secretions no :30 Airway natural :30 Chest Tube no :30 Oxygen no :00 Temp >100.4 no : Temp <96.8 no :30 Chills with rigors no :30 HR > 90bpm yes : Respirations > 20 no : Systolic <90 no : headache stiff neck no :30 Nursing Note Pt was given home instructions and instructed to follow [facility] instructions and Pt verblized understanding and was off of floor in stable condtion : 08 Vital signs Type Value Date Respiration Rate 18breaths per minute : Pulse 90beats per minute : Oxygen Saturation 99% :00 BP Systolic 115mmHg :00 BP Diastolic 77mmHg :00 Temperature 98.6F :00 Social history Type Value Smoking Status CURRENT EVERY DAY SMOKER Treatment Plan No treatment plan text is available for this visit. Hospital discharge instructions Dismissal Condition good Disposition on DC home DC Inst/Educ Give yes PNE Vac No Flu Vac 2014 Tetanus Vac 2014
--- OUTSIDE RECORDS SUMMARY | 2016-11-04 19:32 | XMS REPORT | Clinical Summary ---
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 IBUPROFEN 600 MG TAB 1 po TID PRN IBUPROFEN 83577522336 Active Jillina Frazell POSTING MACHINE OPERATOR Active BACTRIM DS 800-160 MG TAB 1 tab by mouth twice daily TRIMETHOPRIM-SULFAMETHOXAZOLE 62898303426 Active Neeraj Collins MD Active BACTRIM DS 800-160 MG TABS 1 po BID x 7 days SULFAMETHOXAZOLE-TRIMETHOPRIM 52369311202 No Longer Active Vishal Hui MD Active CHANTIX STARTING MONTH EARNEST 0.5 MG X 11 & 1 MG X 42 TABS 0.5mg daily for 3 days , then 0.5mg BID for 4 days, then 1mg BID VARENICLINE TARTRATE 33133712084 No Longer Active TAMARA Gray Active METOPROLOL TARTRATE 50 MG TAB 1 po bid METOPROLOL TARTRATE 40175668385 Active Vishal Hui MD Active TRAZODONE HCL 100 MG TAB take 1 at bedtime TRAZODONE HCL 63558592127 Active Vishal Hui MD Active AMLODIPINE BESYLATE 5 MG TABS 1 tablet by mouth daily AMLODIPINE BESYLATE 05235588254 Active Vishal Hui MD Active VERAPAMIL HCL CR 120 MG TAB CR 1 po bid VERAPAMIL HCL 36289349943 No Longer Active Vishal Hui MD Active METOPROLOL SUCCINATE 50 MG TB24 1 tablet by mouth daily METOPROLOL SUCCINATE 59156275729 No Longer Active Vishal Hui MD Active TRAMADOL HCL 50 MG TABS 1-2 po TID PRN Pain TRAMADOL HCL 52673803023 Active Vishal Hui MD Active SAPHRIS 5 MG SUBL 1 po bid ASENAPINE MALEATE 27807701792 Active Vishal Hui MD Active SAPHRIS 10 MG SUBL 1 tab po bid ASENAPINE MALEATE 92709457326 No Longer Active Vishal Hui MD Active LISINOPRIL 20 MG TABS 1 tab po qd LISINOPRIL 32042199170 No Longer Active Vishal Hui MD Active BENADRYL 25 MG CAP 2 po tid prn anxiety DIPHENHYDRAMINE HCL 99377669017 Active Vishal Hui MD Active LATUDA 80 MG TABS Take one by mouth daily LURASIDONE HCL 47311900642 Active Vishal Hui MD Active LATUDA 20 MG TABS Take one by mouth daily LURASIDONE HCL 43735853551 No Longer Active Vishal Hui MD Active TRAZODONE HCL 50 MG TABS 1/2 tab po qd prn for anxiety TRAZODONE HCL 74952548128 No Longer Active Vishal Hui MD Active PIROXICAM 20 MG CAPS 1 cap po qd PRN Pain PIROXICAM 81689314625 Active Vishal Hui MD Active OMEPRAZOLE 20 MG TBEC 1 po q a.m. 30min prior to first food intake OMEPRAZOLE 63207473642 Active Vishal Hui MD Active RANITIDINE HCL 150 MG CAPS 1 twice a day RANITIDINE HCL 64257330043 Active Vishal Hui MD Active MULTIVITAMINS CAPS Take one by mouth daily MULTIPLE VITAMIN 96224288033 Active Vishal Hui MD Active MELATONIN 3 MG CAPS 2 po q hs MELATONIN 51051402227 Active Vishal Hui MD Active PROZAC 20 MG CAP Take one by mouth daily FLUOXETINE HCL 46907019637 Active Vishal Hui MD Active LINZESS 290 MCG CAPS Take one by mouth daily LINACLOTIDE 43819860427 Active Vishal Hui MD Active SAPHRIS 5 MG SUBL 1 tab po qd ASENAPINE MALEATE 98867030280 No Longer Active Vishal Hui MD Active ZALEPLON 10 MG CAPS 1 cap po every other night ZALEPLON 35735851777 No Longer Active Vishal Hui MD Active LYRICA 50 MG CAPS 1 tab po TID PREGABALIN 86196878225 No Longer Active Vishal Hui MD Active LORATADINE 10 MG TABS 1 tab po qd LORATADINE 07557298201 No Longer Active Vishal Hui MD Active VERAPAMIL HCL ER 180 MG CR-TABS 1 tab po bid VERAPAMIL HCL 69928637971 No Longer Active Vishal Hui MD Active MIRALAX POWD 1 capfull once daily POLYETHYLENE GLYCOL 3350 00327392305 No Longer Active Vishal Hui MD Active PREDNISONE 20 MG TABS 1 tab po qd PREDNISONE 02641968351 No Longer Active Renzo Thornton DO Active LEVOFLOXACIN 500 MG TABS 1 tab po qd LEVOFLOXACIN 28565167793 No Longer Active Renzo Thornton DO Active BUSPIRONE HCL 15 MG TABS 1 tab po TID BUSPIRONE HCL 39912340009 No Longer Active Renzo Thornton DO Active BENZTROPINE MESYLATE 1 MG TABS 1 tab po qd BENZTROPINE MESYLATE 86928431156 No Longer Active Renzo Thornton DO Active ATENOLOL 25 MG TABS 1 tab po qd ATENOLOL 14379510806 No Longer Active Renzo Thornton DO Active ESCITALOPRAM OXALATE 20 MG TABS 1 tab po qd ESCITALOPRAM OXALATE 72533115363 No Longer Active Renzo Thornton DO Active ADVAIR DISKUS 250-50 MCG/DOSE AEPB 1 puff BID FLUTICASONE-SALMETEROL 80361800479 No Longer Active Renzo Thornton DO Active PREDNISONE 20 MG TAB 2 tabs daily for 3 days, 1 tab daily for 3 days, 1/2 tab daily for 2 days PREDNISONE 09303005881 No Longer Active Vishal Hui MD Active CEFDINIR 300 MG CAPS by mouth twice a day CEFDINIR 28568124987 No Longer Active Vishal Hui MD Active LANSOPRAZOLE 30 MG CPDR 1 cap po qd LANSOPRAZOLE 42398078796 No Longer Active Vishal Hui MD Active TOPAMAX 25 MG TABS 1 tab po bid TOPIRAMATE 95146252625 Active Vishal Hui MD Active MINIPRESS 2 MG CAPS 1 cap po at night PRAZOSIN HCL 32368731940 Active Vishal Hui MD Active BACLOFEN 20 MG TABS 1 tab po tid BACLOFEN 52865121938 Active Vishal Hui MD Active ADVAIR DISKUS 250-50 MCG/DOSE AEPB 1 puff BID ADVAIR DISKUS 250-50 MCG/DOSE AEPB FLUTICASONE-SALMETEROL Inactive ESCITALOPRAM OXALATE 20 MG TABS 1 tab po qd ESCITALOPRAM OXALATE 20 MG TABS 677076 ESCITALOPRAM OXALATE Inactive ATENOLOL 25 MG TABS 1 tab po qd ATENOLOL 25 MG TABS 867927 ATENOLOL Inactive BENZTROPINE MESYLATE 1 MG TABS 1 tab po qd BENZTROPINE MESYLATE 1 MG TABS 904298 BENZTROPINE MESYLATE Inactive BUSPIRONE HCL 15 MG TABS 1 tab po TID BUSPIRONE HCL 15 MG TABS 362085 BUSPIRONE HCL Inactive LEVOFLOXACIN 500 MG TABS 1 tab po qd LEVOFLOXACIN 500 MG TABS 389392 LEVOFLOXACIN Inactive PREDNISONE 20 MG TABS 1 tab po qd PREDNISONE 20 MG TABS 671814 PREDNISONE Inactive MIRALAX POWD 1 capfull once daily MIRALAX POWD 966108 POLYETHYLENE GLYCOL 3350 Inactive VERAPAMIL HCL ER 180 MG CR-TABS 1 tab po bid VERAPAMIL HCL ER 180 MG CR-TABS VERAPAMIL HCL Inactive LORATADINE 10 MG TABS 1 tab po qd LORATADINE 10 MG TABS 048402 LORATADINE Inactive LYRICA 50 MG CAPS 1 tab po TID LYRICA 50 MG CAPS PREGABALIN Inactive ZALEPLON 10 MG CAPS 1 cap po every other night ZALEPLON 10 MG CAPS 334910 ZALEPLON Inactive SAPHRIS 5 MG SUBL 1 tab po qd SAPHRIS 5 MG SUBL ASENAPINE MALEATE Inactive TRAZODONE HCL 50 MG TABS 1/2 tab po qd prn for anxiety TRAZODONE HCL 50 MG TABS 036719 TRAZODONE HCL Inactive LATUDA 20 MG TABS Take one by mouth daily LATUDA 20 MG TABS LURASIDONE HCL Inactive LISINOPRIL 20 MG TABS 1 tab po qd LISINOPRIL 20 MG TABS 758833 LISINOPRIL Inactive SAPHRIS 10 MG SUBL 1 [...] twice a day CEFDINIR 300 MG CAPS 299918 CEFDINIR Inactive PREDNISONE 20 MG TAB 2 tabs daily for 3 days, 1 tab daily for 3 days, 1/2 tab daily for 2 days PREDNISONE 20 MG TAB 717290 PREDNISONE Inactive BACTRIM DS 800-160 MG TABS [...] Panel - Chemistry sodium, serum 141 mmol/L 628-004 7460 potassium, serum 4.3 mmol/L 3.5-5.2 chloride, serum [...] Panel - Chemistry sodium, serum 139 mmol/L 708-558 4555/12/31 potassium, serum 4.8 mmol/L 3.5-5.2 chloride, serum 106 mmol/L 98-107 carbon dioxide, venous blood 24.3 mmol/L 21.0-32.0 blood glucose 90 mg/dL 65-110 urea nitrogen, blood 16 mg/dL 7-18 creatinine, serum 1.00 mg/dL 0.60-1.30 alanine aminotransferase (SGPT), serum 41 U/L 12-78 aspartate aminotransferase (SGOT), serum 17 U/L 15-37 calcium, serum 8.6 mg/dL 8.5-10.1 bilirubin, serum, total 0.30 mg/dL 0.00-1.00 cholesterol, serum 108 mg/dL 509-110 0444/12/31 triglyceride, serum, fasting 120 mg/dL 30-200 HDL [...] UADIP W/MICRO, AUTO, [facility] [place] - Chemistry protein, total urine random Negative mg/dL Negative RBC, urine, dipstick Negative Negative human chorionic gonadotropin, urine, qualitative (urine test) Negative Negative Lab Report: UADIP W/MICRO, AUTO, [facility] [place] - Urinalysis urobilinogen, urine, semiquantitative (dipstick) 0.2 Normal leukocyte esterase, urine, by dipstick Negative Negative nitrite, urine, semiquantitative Negative Negative glucose, urine, semiquantitative Negative Negative ketones, urine, by test strip Negative Negative bilirubin, urine Negative Negative urine color Yellow Colorless;Lightyellow;Straw;Yellow appearance, urine Clear Clear specific gravity, urine 1.025 1.000-1.030 pH, urine, semiquantitative 7.0 5.0-8.5 Lab Report: Varicella-Zoater Inga IgG,IgM/44753, HEP Be Antibody/556, RUB ... - Serology rubella antibody, serum, IgG 2.88 Encounters Code Encounter Date Provider Facility CPT-25754 Level 3 Est. Patient 14:49:50 CDT Vishal Hui MD [facility] CPT-81059 Level 4 Est. Patient 18:41:46 CDT Neeraj Collins MD [facility] CPT-35252 Level 4 Est. Patient 09:18:38 REVIEW ENGINEER Vishal Hui MD [facility] CPT-25287 Level 3 Est. Patient 14:43:55 REVIEW ENGINEER Vishal Hui MD [facility] CPT-05894 Level 3 Est. Patient 15:26:33 REVIEW ENGINEER Sahara Rodriguez MD PhD [facility] CPT-48409 Level 3 Est. Patient 10:32:14 REVIEW ENGINEER Vishal Hui MD [facility] CPT-79606 Level 3 Est. Patient 15:12:52 REVIEW ENGINEER Vishal Hui MD [facility] CPT-25354 Level 4 Est. Patient 09:19:27 CDT Vishal Hui MD [facility] CPT-10962 Level 3 Est. Patient 15:53:00 CDT Renzo Thornton [facility] CPT-25412 Level 3 Est. Patient 15:50:30 CDT Renzo Thornton [facility] CPT-12160 Level 3 Est. Patient 16:55:24 CDT Vishal Hui MD [facility] Procedures Code Procedure Name Date Entry Date Standard Description CPT-74579 Recombivax HB Injection Suspension 5 MCG/0.5ML 10:00:41 CDT CPT-88105 Administration single or combination vaccine inc oral 10 :00:41 CDT CPT-97383 Sono transvag pelvis non OB uterus ovaries cervix 16:36: 57 CDT CPT-23914 LS spine comp w obliq 09:50:55 REVIEW ENGINEER CPT-51286 Abd compl w upright 09:50:55 REVIEW ENGINEER CPT-J1100 Decadron 4mg (Dexamethasone) 15:51:24 REVIEW ENGINEER CPT-J1030 Depo Medrol 40 mg (Methyl Prednisolone Acetate) 15:51: 24 REVIEW ENGINEER CPT-32224 Abx/Therapy Injection 15:51:24 REVIEW ENGINEER CPT-J1100 Decadron 4mg (Dexamethasone) 15:26:33 REVIEW ENGINEER CPT-J1030 Depo Medrol 40 mg (Methyl Prednisolone Acetate) 15:26: 33 REVIEW ENGINEER CPT-44794 Sono retroperitoneal complete kidneys and bladder 17:15: 30 CDT CPT-71438 Abd compl w upright 16:09:25 CDT CPT-J1100 Decadron 8mg (Dexamethasone) 17:07:57 CDT CPT-13977 Abx/Therapy Injection 17:07:57 CDT CPT-J1100 Decadron 8mg (Dexamethasone) 16:55:24 CDT CPT-75774 Chest 2V Frontal and Lat 16:32:44 CDT
--- OUTSIDE RECORDS SUMMARY | 2016-11-04 19:36 | XMS REPORT | Clinical Summary ---
Author Author Admin, [facility] Organization [facility] [employer] Address Unknown Phone Unavailable Allergies, Adverse Reactions, [...] Active Ahmet Carbajal MD Generalized anxiety disorder Delivery Table Feeder well woman exam V72.31 Resolved Suzan Boo [...] fracture with routine healing Inactive Suzan Boo [address] STENOGRAPHER Bronchitis, acute ICD-466.0 Inactive Ahmet Carbajal MD Delivery Table Feeder well woman exam ICD-V72.31 Inactive Suzan Boo [address] STENOGRAPHER Bronchitis, acute with mild bronchospasm ICD-466.0 Inactive Suzan Boo [address] STENOGRAPHER Tracheitis ICD-464.10 Inactive Suzan Boo [address] STENOGRAPHER Impetigo ICD-684 Inactive Suzan Boo [address] STENOGRAPHER Furuncle of buttock ICD-680.5 Inactive Suzan Boo [address] STENOGRAPHER Vaginal irritation ICD-623.9 Inactive Suzan Boo [address] STENOGRAPHER Scalding pain on urination ICD-788.1 Inactive Suzan Boo [address] STENOGRAPHER Abdominal pain, right upper quadrant ICD-789.01 Inactive Suzan Boo [address] STENOGRAPHER Dark urine ICD-791.9 Inactive Suzan Boo APRN Preop exam ICD-V72.84 Inactive Suzan Boo [address] STENOGRAPHER Medication List Medication Instructions Start Date Stop Date Generic Name NDC Status Provider Patient Instruction [id number] 50-325-40 MG TABS 1 to 2 four times a day as needed for headache [id number] Active Suzan Boo [address] STENOGRAPHER Active METOCLOPRAMIDE HCL 10 MG TABS 1 two times as needed for nausea and headaches METOCLOPRAMIDE HCL 87474988357 Active Suzan Boo APRN Active NYSTATIN 989141 UNIT/GM CREA apply three times a day to yeast rash NYSTATIN 53598177575 Active Suzan Boo APRN Active AMITIZA 24 MCG ORAL CAPS one capsule twice daily LUBIPROSTONE 10544154999 Active Suzan Boo APRN Active MIRALAX ORAL POWD 17GMS DAILY IN WATER POLYETHYLENE GLYCOL 3350 36933320014 No Longer Active Suzan Boo APRN Active LACTULOSE 10 GM/15ML ORAL SOLN 30mL oral BID for IBS-C LACTULOSE 62346678976 No Longer Active Suzan Boo APRN Active BACTRIM DS 800-160 MG TAB Take one (1) tablet by mouth twice a day for 5 days TRIMETHOPRIM-SULFAMETHOXAZOLE 19934141686 No Longer Active Suzan Boo APRN Active MUPIROCIN 2 % OINT apply twice a day MUPIROCIN 61545438570 No Longer Active Suzan Boo APRN Active BACTRIM DS 800-160 MG TABS 1 twice a day SULFAMETHOXAZOLE-TRIMETHOPRIM 63972030085 No Longer Active Suzan Boo APRN Active DIFLUCAN 150 MG TABS 1 by mouth for yeast FLUCONAZOLE 09902889066 No Longer Active Suzan Boo APRN Active LINZESS 290 MCG ORAL CAPS 1 tab 30 min prior to first meal each day. LINACLOTIDE 18191091876 No Longer Active Sheila Calderon [employer] Active AMITIZA 8 MCG ORAL CAPS 1 tab BID LUBIPROSTONE 73695903159 No Longer Active Lynda Madl [employer]ISTANT MA[employer]GER [employer]AIL Active TESSALON PERLES 100 MG CAPS 1 three times a day as needed for cough BENZONATATE 35662591685 No Longer Active Suzan Boo APRN Active BACTRIM DS 800-160 MG TABS 1 twice a day SULFAMETHOXAZOLE-TRIMETHOPRIM 13176544309 No Longer Active Suzan Boo APRN Active DIFLUCAN 150 MG TABS 1 by mouth for yeast FLUCONAZOLE 10232650745 No Longer Active Suzan Boo APRN Active EQ NICOTINE 21 MG/24HR TRANS PT24 Apply daily to stop smoking NICOTINE 16343347889 No Longer Active Suzan Boo APRN Active PREDNISONE 10 MG TABS 2 daily for 5 days then 1 daily for 5 days PREDNISONE 35571385806 No Longer Active Suzan Boo APRN Active LEVAQUIN 500 MG TABS 1 daily for infection LEVOFLOXACIN 97171096135 No Longer Active Suzan Boo APRN Active TROPICAMIDE 0.5 % OPHTH SOLN 1 drop PRN eye spasms TROPICAMIDE 96575549139 No Longer Active Suzan Boo APRN Active PREDNISONE 20 MG TAB 1 tablet daily x 4 days PREDNISONE 80282814817 No Longer Active Suzan Boo APRN Active ACETAMINOPHEN-CODEINE 120-12 MG/5ML SOLN 5 ml by mouth every 4-6 hours if needed for cough ACETAMINOPHEN-CODEINE 31474409881 No Longer Active Suzan Boo APRN Active KEFLEX 500 MG CAP 1 po qid CEPHALEXIN 86799302924 No Longer Active Suzan Boo APRN Active FLOVENT HFA 110 MCG/ACT AERO 2 puffs inhaled b.i.d. FLUTICASONE PROPIONATE HFA 81743773093 Active Renzo Thornton DO Active RISPERDAL 4 MG ORAL TABS 1 tab at bedtime RISPERIDONE 71861968727 Active Samantha Rothman RMA Active ZOFRAN 4 MG TABS 1 po q6hr PRN Nausea ONDANSETRON HCL No Longer Active Suzan Boo APRN Active FLUTICASONE PROPIONATE 50 MCG/ACT SUSP 2 sprays each nostril daily before bed. FLUTICASONE PROPIONATE 89196677859 No Longer Active Suzan Boo APRN Active ASPIRIN 325 MG ORAL TABS 1 tab q.d ASPIRIN 57869067805 No Longer Active Suzan Boo APRN Active HALOPERIDOL 10 MG ORAL TABS 1 tab q.d HALOPERIDOL 71433860968 No Longer Active Suzan Boo APRN Active GUAIFENESIN-CODEINE 100-10 MG/5ML SYRP 5ml every 4 to 6 hours as needed for cough GUAIFENESIN-CODEINE 18893201330 No Longer Active Suzan Boo APRN Active ZITHROMAX Z-EARNEST 250 MG TABS 2 today and then 1 daily for 4 days AZITHROMYCIN 32292454697 No Longer Active Suzan Boo APRN Active CLONAZEPAM 1 MG ORAL TABS 1 twice a day and an additional 1 tablet every other day as needed for pseudoseizures or anxiety CLONAZEPAM 26568818593 Active Suzan Boo APRN Active HYDROCODONE-ACETAMINOPHEN 5-325 MG ORAL TABS 1 tab two times a day HYDROCODONE-ACETAMINOPHEN 46659166188 No Longer Active Ahmet Carbajal MD Active LAMICTAL 100 MG ORAL TABS 1 tab 2 times qd. LAMOTRIGINE 57487135370 Active Ahmet Carbajal MD Active PREDNISONE 20 MG TABS 2 daily for 5 days then 1 daily for 5 days PREDNISONE 96853245304 No Longer Active Ahmet Carbajal MD Active FLUTICASONE PROPIONATE 50 MCG/ACT SUSP 1 to 2 sprays each nostril daily for allergies FLUTICASONE PROPIONATE 28041618381 Active Tila Valenzuela Active BENADRYL 25 MG CAP 4 po at bedtime for insomnia DIPHENHYDRAMINE HCL 91122505868 No Longer Active Ahmet Carbajal MD Active ADVAIR DISKUS 250-50 MCG/DOSE INH AEPB 1 puff twice a day for asthma FLUTICASONE-SALMETEROL 80774247586 No Longer Active Ahmet Carbajal MD Active KLONOPIN 1 MG ORAL TABS 1 tab po TID CLONAZEPAM 74891021977 No Longer Active Ahmet Carbajal MD Active ABILIFY MAINTENA 400 MG IM SUSR 400mg injection every 26 days ARIPIPRAZOLE 94077605100 No Longer Active Ahmte Carbajal MD Active TRAMADOL HCL 50 MG TABS 1/2-1 tab TID PRN TRAMADOL HCL 40979438926 No Longer Active Ahmet Carbajal MD Active BACTRIM DS 800-160 MG TABS 1 twice a day SULFAMETHOXAZOLE- TRIMETHOPRIM 59851268560 No Longer Active Ahmet Carbajal MD Active PROAIR HFA 108 (90 BASE) MCG/ACT AERS 2 puffs four times a day as needed 2015 ALBUTEROL SULFATE 65537921926 Active Honey Hinton [address] STENOGRAPHER Active MONISTAT 7 COMBO PACK WOODROW 100 & 2 MG-% (9GM) VAG KIT 1 applicatorful per vagina q pm x 7 MICONAZOLE NITRATE 63989073805 No Longer Active Ahmet Carbajal MD Active FLAGYL 500 MG TAB 1 tablet by mouth bid METRONIDAZOLE 00938008386 No Longer Active Ahmet Carbajal MD Active OXYCODONE HCL ER 10 MG ORAL T12A 1/2 tab by mouth every 4 hours prn OXYCODONE HCL 41042816830 No Longer Active Ahmet Carbajal MD Active METHYLPREDNISOLONE 4 MG ORAL TABS po daily METHYLPREDNISOLONE 79360610357 No Longer Active Ahmet Carbajal MD Active LEVOFLOXACIN 500 MG ORAL TABS po daily LEVOFLOXACIN 21137786605 No Longer Active Ahmet Carbajal MD Active VIIBRYD 10 MG ORAL TABS Take 1 tablet once a day VILAZODONE HCL 62823026319 No Longer Active Ahmet Carbajal MD Active TOPAMAX 50 MG ORAL TABS 1 tab twice daily TOPIRAMATE 69748158853 No Longer Active Ahmet Carbajal MD Active DICLOFENAC SODIUM 50 MG TBEC 1 tablet by mouth four times daily PRN Pain 2015 DICLOFENAC SODIUM 83522835340 No Longer Active Ahmet Carbajal MD Active ADZENYS XR-ODT 6.3 MG ORAL TBED 1 tab po daily for ADHD AMPHETAMINE 17559374588 No Longer Active Ahmet Carbajal MD Active CHANTIX 1 MG TABS 1 twice a day to help quit smoking VARENICLINE TARTRATE 18955285540 No Longer Active Dipika Burgos MD Active CHANTIX STARTING MONTH EARNEST 0.5 MG X 11 & 1 MG X 42 TABS take as directed 2015 VARENICLINE TARTRATE 26278826214 No Longer Active Dipika Burgos MD Active TESSALON PERLES 100 MG CAP 1 to 2 tablets by mouth 3 times daily as needed for cough BENZONATATE 20308673291 No Longer Active Luigi Martínez [address] STENOGRAPHER Active IMITREX 50 MG ORAL TABS 0.5 po x 1 PRN Headache. May repeat dose x 1 in 2 hours if needed SUMATRIPTAN SUCCINATE 13647243049 Active TAMARA Casey Active HYDROCODONE-ACETAMINOPHEN 5-325 MG TABS 1 to 2 four times a day as needed for pain use until can be seen by specialist HYDROCODONE- ACETAMINOPHEN 30133183752 No Longer Active Vishal Hui MD Active PROAIR HFA 108 (90 BASE) MCG/ACT AERS 2 puffs four times a day as needed 2015 ALBUTEROL SULFATE 86244251304 No Longer Active Vishal Hui MD Active PREDNISONE 20 MG TABS 2 daily for 5 days then 1 daily for 5 days PREDNISONE 11835456649 No Longer Active Vishal Hui MD Active ZITHROMAX Z-EARNEST 250 MG TABS 2 today and then 1 daily for 4 days AZITHROMYCIN 92343358402 No Longer Active Vishal Hui MD Active DICLOFENAC POTASSIUM TABS Take 1 tablet twice a day (pt. is not sure of the dose.) DICLOFENAC POTASSIUM TABS 12567985404 No Longer Active Vishal Hui MD Active VERAPAMIL HCL ER 120 MG ORAL CR-TABS Take 1 tablet by mouth twice a day. VERAPAMIL HCL 54414105199 Active Vishal Hui MD Active FLAGYL 500 MG TAB 1 tablet by mouth bid METRONIDAZOLE 32721438189 No Longer Active Vishal Hui MD Active VALIUM 5 MG TAB Take 1-2 tablets daily DIAZEPAM 63298953025 No Longer Active Fabiola Johnson APRN Active METOPROLOL TARTRATE 25 MG ORAL TABS 1/2 tablet twice daily for heart rate and blood pressure METOPROLOL TARTRATE 25014940098 No Longer Active Fabiola Johnson APRN Active MIRALAX PACK 1 po qd PRN Constipation POLYETHYLENE GLYCOL 3350 80835497441 No Longer Active Ahmet Carbajal MD Active MINIPRESS 2 MG CAPS 4 cap po at night PRAZOSIN HCL 35297977989 No Longer Active Ahmet Carbajal MD Active PIROXICAM 20 MG CAPS 1 cap po qd PRN Pain PIROXICAM 57201820628 No Longer Active Ahmet Carbajal MD Active TRAMADOL HCL 50 MG TABS 1-2 po TID PRN Pain TRAMADOL HCL 40493127312 No Longer Active Ahmet Carbajal MD Active METOPROLOL TARTRATE 50 MG TAB 1 po bid METOPROLOL TARTRATE 81377343714 No Longer Active Ahmet Carbajal MD Active ABILIFY 15 MG ORAL TABS 1 tab daily ARIPIPRAZOLE 77262715860 No Longer Active Ahmet Carbajal MD Active PROZAC 20 MG ORAL CAPS 1 tab daily FLUOXETINE HCL 43896532517 No Longer Active Ahmet Carbajal MD Active AMBIEN 5 MG ORAL TABS 1 tab at bedtime ZOLPIDEM TARTRATE 11676235862 No Longer Active Ahmet Carbajal MD Active PREDNISONE 20 MG TAB 2 tabs daily for 4 days, 1 tab daily for 4 days, 1/2 tab daily for 4 days PREDNISONE 01498395600 No Longer Active Ahmet Carbajal MD Active KEFLEX 500 MG CAP 1 po TID x 10 days CEPHALEXIN 16571704542 No Longer Active Vishal Hui MD Active SAPHRIS 5 MG SUBL 1 po bid ASENAPINE MALEATE 94425274536 No Longer Active Jillina Fralebron [address] STENOGRAPHER Active LATUDA 80 MG TABS Take one by mouth daily LURASIDONE HCL 03950430129 No Longer Active Jillina Frazell [address] STENOGRAPHER Active AMLODIPINE BESYLATE 5 MG TABS 1 tablet by mouth daily AMLODIPINE BESYLATE 80577423360 No Longer Active Jillina Mauricio WALTERSN Active AMITRIPTYLINE HCL 100 MG TAB one at hs AMITRIPTYLINE HCL 88351066362 No Longer Active Vishal Hui MD Active TRAZODONE HCL 100 MG TAB take 1 at bedtime TRAZODONE HCL 69632028161 No Longer Active Vishal Hui MD Active VYVANSE 40 MG CAPS 1 daily, LISDEXAMFETAMINE DIMESYLATE 55735979299 No Longer Active Vishal Hui MD Active IBUPROFEN 600 MG TAB 1 po TID PRN IBUPROFEN 73941592984 No Longer Active Vishal Hui MD Active PROZAC 20 MG CAP Take one by mouth daily FLUOXETINE HCL 54839203272 No Longer Active Vishal Hui MD Active BACTRIM DS 800-160 MG TABS 1 pill by mouth twice daily SULFAMETHOXAZOLE-TRIMETHOPRIM 11459198438 No Longer Active Sahara Rodriguez MD PhD Active DIFLUCAN 150 MG TAB 1 tablet by mouth daily FLUCONAZOLE 18362380566 No Longer Active Vishal Hui MD Active TIZANIDINE HCL 4 MG TABS 1 po q6hr PRN Muscle Spasm/Back Pain TIZANIDINE HCL 70585230231 Active TAMARA Casey Active CLINDAMYCIN HCL 150 MG CAPS 1 four times a day CLINDAMYCIN HCL 67331307175 No Longer Active Neeraj Collins MD Active KEFLEX 500 MG ORAL CAPS 1 cap QID by mouth CEPHALEXIN 59190461552 No Longer Active Neeraj Collins MD Active DIFLUCAN 150 MG TABS 1 pill every other day x 2 doses FLUCONAZOLE 60841082281 No Longer Active Sahara Rodriguez MD PhD Active MELATONIN 3 MG CAPS 2 po q hs MELATONIN 11787299546 No Longer Active Sahara Rodriguez MD PhD Active MULTIVITAMINS CAPS Take one by mouth daily MULTIPLE VITAMIN 43877204058 No Longer Active Sahara Rodriguez MD PhD Active BACTRIM DS 800-160 MG TAB 1 tab by mouth twice daily TRIMETHOPRIM-SULFAMETHOXAZOLE 34328426046 No Longer Active Sahara Rodriguez MD PhD Active [facility] PROBIOTIC ORAL CHEW 2 daily po PROBIOTIC PRODUCT 33433370262 No Longer Active Sahara Rodriguez MD PhD Active BACTRIM DS 800-160 MG TABS 1 po BID x 7 days SULFAMETHOXAZOLE-TRIMETHOPRIM 29349651566 No Longer Active Vishal Hui MD Active CHANTIX STARTING MONTH EARNEST 0.5 MG X 11 & 1 MG X 42 TABS 0.5mg daily for 3 days , then 0.5mg BID for 4 days, then 1mg BID VARENICLINE TARTRATE 81907646067 No Longer Active TAMARA Gray Active VERAPAMIL HCL CR 120 MG TAB CR 1 po bid VERAPAMIL HCL 92783890350 No Longer Active Vishal Hui MD Active METOPROLOL SUCCINATE 50 MG TB24 1 tablet by mouth daily METOPROLOL SUCCINATE 56815626474 No Longer Active Vishal Hui MD Active SAPHRIS 10 MG SUBL 1 tab po bid ASENAPINE MALEATE 63658738300 No Longer Active Vishal Hui MD Active LISINOPRIL 20 MG TABS 1 tab po qd LISINOPRIL 14295257488 No Longer Active Vishal Hui MD Active LATUDA 20 MG TABS Take one by mouth daily LURASIDONE HCL 27764900849 No Longer Active Vishal Hui MD Active TRAZODONE HCL 50 MG TABS 1/2 tab po qd prn for anxiety TRAZODONE HCL 43434321024 No Longer Active Vishal Hui MD Active OMEPRAZOLE 20 MG TBEC 1 po q a.m. 30min prior to first food intake OMEPRAZOLE 26315101163 Active TAMARA Casey Active RANITIDINE HCL 150 MG CAPS 1 twice a day RANITIDINE HCL 48989223768 Active Lynda Xiao LPN Active LINZESS 290 MCG CAPS Take one by mouth daily LINACLOTIDE 43392288373 No Longer Active Vishal Hui MD Active SAPHRIS 5 MG SUBL 1 tab po qd ASENAPINE MALEATE 58491803082 No Longer Active Vishal Hui MD Active ZALEPLON 10 MG CAPS 1 cap po every other night ZALEPLON 19525635311 No Longer Active Vishal Hui MD Active LYRICA 50 MG CAPS 1 tab po TID PREGABALIN 16224523537 No Longer Active Vishal Hui MD Active LORATADINE 10 MG TABS 1 tab po qd LORATADINE 24940258558 No Longer Active Vishal Hui MD Active VERAPAMIL HCL ER 180 MG CR-TABS 1 tab po bid VERAPAMIL HCL 79626938493 No Longer Active Vishal Hui MD Active MIRALAX POWD 1 capfull once daily POLYETHYLENE GLYCOL 3350 59985709238 No Longer Active Vishal Hui MD Active PREDNISONE 20 MG TABS 1 tab po qd PREDNISONE 29516025733 No Longer Active Renzo Thornton DO Active LEVOFLOXACIN 500 MG TABS 1 tab po qd LEVOFLOXACIN 24224147459 No Longer Active Renzo Thornton DO Active BUSPIRONE HCL 15 MG TABS 1 tab po TID BUSPIRONE HCL 09268346844 No Longer Active Renzo Thornton DO Active BENZTROPINE MESYLATE 1 MG TABS 1 tab po qd BENZTROPINE MESYLATE 72138730439 No Longer Active Renzo Thornton DO Active ATENOLOL 25 MG TABS 1 tab po qd ATENOLOL 29016167679 No Longer Active Renzo Thornton DO Active ESCITALOPRAM OXALATE 20 MG TABS 1 tab po qd ESCITALOPRAM OXALATE 86989652846 No Longer Active Renzo Thornton DO Active ADVAIR DISKUS 250-50 MCG/DOSE AEPB 1 puff BID FLUTICASONE-SALMETEROL 28051254662 No Longer Active Renzo Thornton DO Active PREDNISONE 20 MG TAB 2 tabs daily for 3 days, 1 tab daily for 3 days, 1/2 tab daily for 2 days PREDNISONE 62040232435 No Longer Active Vishal Hui MD Active CEFDINIR 300 MG CAPS by mouth twice a day CEFDINIR 70010832304 No Longer Active Vishal Hui MD Active LANSOPRAZOLE 30 MG CPDR 1 cap po qd LANSOPRAZOLE 52187829380 No Longer Active Vishal Hui MD Active BACLOFEN 20 MG TABS 1 tab po tid BACLOFEN 88249403224 No Longer Active Vishal Hui MD Active ADVAIR DISKUS 250-50 MCG/DOSE AEPB 1 puff BID ADVAIR DISKUS 250-50 MCG/DOSE AEPB FLUTICASONE-SALMETEROL Inactive ESCITALOPRAM OXALATE 20 MG TABS 1 tab po qd ESCITALOPRAM OXALATE 20 MG TABS 138993 ESCITALOPRAM OXALATE Inactive ATENOLOL 25 MG TABS 1 tab po qd ATENOLOL 25 MG TABS 410930 ATENOLOL Inactive BENZTROPINE MESYLATE 1 MG TABS 1 tab po qd BENZTROPINE MESYLATE 1 MG TABS 585575 BENZTROPINE MESYLATE Inactive BUSPIRONE HCL 15 MG TABS 1 tab po TID BUSPIRONE HCL 15 MG TABS 683135 BUSPIRONE HCL Inactive LEVOFLOXACIN 500 MG TABS 1 tab po qd LEVOFLOXACIN 500 MG TABS 075941 LEVOFLOXACIN Inactive PREDNISONE 20 MG TABS 1 tab po qd PREDNISONE 20 MG TABS 328953 PREDNISONE Inactive MIRALAX POWD 1 capfull once daily MIRALAX POWD 942925 POLYETHYLENE GLYCOL 3350 Inactive VERAPAMIL HCL ER 180 MG CR-TABS 1 tab po bid VERAPAMIL HCL ER 180 MG CR-TABS VERAPAMIL HCL Inactive LORATADINE 10 MG TABS 1 tab po qd LORATADINE 10 MG TABS 519132 LORATADINE Inactive LYRICA 50 MG CAPS 1 tab po TID LYRICA 50 MG CAPS PREGABALIN Inactive ZALEPLON 10 MG CAPS 1 cap po every other night ZALEPLON 10 MG CAPS 017130 ZALEPLON Inactive SAPHRIS 5 MG SUBL 1 tab po qd SAPHRIS 5 MG SUBL ASENAPINE MALEATE Inactive TRAZODONE HCL 50 MG TABS 1/2 tab po qd prn for anxiety TRAZODONE HCL 50 MG TABS 598973 TRAZODONE HCL Inactive LATUDA 20 MG TABS Take one by mouth daily LATUDA 20 MG TABS LURASIDONE HCL Inactive LISINOPRIL 20 MG TABS 1 tab po qd LISINOPRIL 20 MG TABS 677671 LISINOPRIL Inactive SAPHRIS 10 MG SUBL 1 [...] twice daily BACTRIM DS 800-160 MG TAB 418950 TRIMETHOPRIM-SULFAMETHOXAZOLE Inactive MULTIVITAMINS CAPS Take one by mouth daily MULTIVITAMINS CAPS MULTIPLE VITAMIN Inactive MELATONIN 3 MG CAPS 2 po q hs MELATONIN 3 MG CAPS 824177 MELATONIN Inactive KEFLEX 500 MG ORAL CAPS 1 cap QID by mouth KEFLEX 500 MG ORAL CAPS 817158 CEPHALEXIN Inactive CLINDAMYCIN HCL 150 MG CAPS 1 four times a day CLINDAMYCIN HCL 150 MG CAPS 024197 CLINDAMYCIN HCL Inactive DIFLUCAN 150 MG TAB 1 tablet by mouth daily DIFLUCAN 150 MG TAB 330288 FLUCONAZOLE Inactive PROZAC 20 MG CAP Take one by mouth daily PROZAC 20 MG CAP 706882 FLUOXETINE HCL Inactive IBUPROFEN 600 MG TAB 1 po TID PRN IBUPROFEN 600 MG TAB 309610 IBUPROFEN Inactive VYVANSE 40 MG CAPS 1 daily, VYVANSE 40 MG CAPS LISDEXAMFETAMINE DIMESYLATE Inactive TRAZODONE HCL 100 MG TAB take 1 at bedtime TRAZODONE HCL 100 MG TAB 791157 TRAZODONE HCL Inactive AMITRIPTYLINE HCL 100 MG TAB one at hs AMITRIPTYLINE HCL 100 MG TAB 002604 AMITRIPTYLINE HCL Inactive AMLODIPINE BESYLATE 5 MG TABS 1 tablet by mouth daily AMLODIPINE BESYLATE 5 MG TABS 679832 AMLODIPINE BESYLATE Inactive LATUDA 80 MG TABS Take one by mouth daily LATUDA 80 MG TABS LURASIDONE HCL Inactive SAPHRIS 5 MG SUBL 1 po bid SAPHRIS 5 MG SUBL ASENAPINE MALEATE Inactive PREDNISONE 20 MG TAB 2 tabs daily for 4 days, 1 tab daily for 4 days, 1/2 tab daily for 4 days PREDNISONE 20 MG TAB 074714 PREDNISONE Inactive AMBIEN 5 MG ORAL TABS 1 tab at bedtime AMBIEN 5 MG ORAL TABS 291059 ZOLPIDEM TARTRATE Inactive PROZAC 20 MG ORAL CAPS 1 tab daily PROZAC 20 MG ORAL CAPS 000773 FLUOXETINE HCL Inactive ABILIFY 15 MG ORAL TABS 1 tab daily ABILIFY 15 MG ORAL TABS 376007 ARIPIPRAZOLE Inactive METOPROLOL TARTRATE 50 MG TAB 1 po bid METOPROLOL TARTRATE 50 MG TAB 667926 METOPROLOL TARTRATE Inactive TRAMADOL HCL 50 MG TABS 1-2 po TID PRN Pain TRAMADOL HCL 50 MG TABS 433093 TRAMADOL HCL Inactive PIROXICAM 20 MG CAPS 1 cap po qd PRN Pain PIROXICAM 20 MG CAPS 121801 PIROXICAM Inactive MINIPRESS 2 MG CAPS 4 cap po at night MINIPRESS 2 MG CAPS 068522 PRAZOSIN HCL Inactive MIRALAX PACK 1 po qd PRN Constipation MIRALAX PACK 605571 POLYETHYLENE GLYCOL 3350 Inactive METOPROLOL TARTRATE 25 MG ORAL TABS 1/2 tablet twice daily for heart rate and blood pressure METOPROLOL TARTRATE 25 MG ORAL TABS 716353 METOPROLOL TARTRATE Inactive VALIUM 5 MG TAB Take 1-2 tablets daily VALIUM 5 MG TAB 260631 DIAZEPAM Inactive FLAGYL 500 MG TAB 1 tablet by mouth bid FLAGYL 500 MG TAB 844840 METRONIDAZOLE Inactive DICLOFENAC POTASSIUM TABS Take 1 tablet twice a day (pt. is not sure of the dose.) DICLOFENAC POTASSIUM TABS DICLOFENAC POTASSIUM TABS Inactive ZITHROMAX Z-EARNEST 250 MG TABS 2 today and then 1 daily for 4 days ZITHROMAX Z-EARNEST 250 MG TABS 9004316 AZITHROMYCIN Inactive PREDNISONE 20 MG TABS 2 daily for 5 days then 1 daily for 5 days PREDNISONE 20 MG TABS 686639 PREDNISONE Inactive PROAIR HFA 108 (90 BASE) MCG/ACT AERS 2 puffs four times a day as needed 2015 PROAIR HFA 108 (90 BASE) MCG/ACT AERS ALBUTEROL SULFATE Inactive HYDROCODONE-ACETAMINOPHEN 5-325 MG TABS 1 to 2 four times a day as needed for pain use until can be seen by specialist HYDROCODONE- ACETAMINOPHEN 5-325 MG TABS 493153 HYDROCODONE-ACETAMINOPHEN Inactive TESSALON PERLES 100 MG CAP 1 to 2 tablets by mouth 3 times daily as needed for cough TESSALON PERLES 100 MG CAP 686255 BENZONATATE Inactive CHANTIX STARTING MONTH EARNEST 0.5 [...] Pain 2015 DICLOFENAC SODIUM 50 MG TBEC 394313 DICLOFENAC SODIUM Inactive TOPAMAX 50 MG ORAL TABS 1 tab twice daily TOPAMAX 50 MG ORAL TABS 927693 TOPIRAMATE Inactive VIIBRYD 10 MG ORAL TABS Take 1 tablet once a day VIIBRYD 10 MG ORAL TABS VILAZODONE HCL Inactive LEVOFLOXACIN 500 MG ORAL TABS po daily LEVOFLOXACIN 500 MG ORAL TABS 164926 LEVOFLOXACIN Inactive METHYLPREDNISOLONE 4 MG ORAL TABS po daily METHYLPREDNISOLONE 4 MG ORAL TABS 484660 METHYLPREDNISOLONE Inactive OXYCODONE HCL ER 10 MG ORAL T12A 1/2 tab by mouth every 4 hours prn OXYCODONE HCL ER 10 MG ORAL T12A OXYCODONE HCL Inactive FLAGYL 500 MG TAB 1 tablet by mouth bid FLAGYL 500 MG TAB 714220 METRONIDAZOLE Inactive MONISTAT 7 COMBO PACK WOODROW 100 & 2 MG-% (9GM) VAG KIT 1 applicatorful per vagina q pm x 7 MONISTAT 7 COMBO PACK WOODROW 100 & 2 MG-% (9GM) VAG KIT MICONAZOLE NITRATE Inactive BACTRIM DS 800-160 MG TABS 1 twice a day BACTRIM DS 800-160 MG TABS 968137 SULFAMETHOXAZOLE-TRIMETHOPRIM Inactive TRAMADOL HCL 50 MG TABS 1/2-1 tab TID PRN TRAMADOL HCL 50 MG TABS 346692 TRAMADOL HCL Inactive ABILIFY MAINTENA 400 MG IM SUSR 400mg injection every 26 days ABILIFY MAINTENA 400 MG IM SUSR ARIPIPRAZOLE Inactive KLONOPIN 1 MG ORAL TABS 1 tab po TID KLONOPIN 1 MG ORAL TABS 429265 CLONAZEPAM Inactive ADVAIR DISKUS 250-50 MCG/DOSE INH AEPB 1 puff twice a day for asthma ADVAIR DISKUS 250-50 MCG/DOSE INH AEPB FLUTICASONE- SALMETEROL Inactive BENADRYL 25 MG CAP 4 po at bedtime for insomnia BENADRYL 25 MG CAP DIPHENHYDRAMINE HCL Inactive PREDNISONE 20 MG TABS 2 daily for 5 days then 1 daily for 5 days PREDNISONE 20 MG TABS 800921 PREDNISONE Inactive HYDROCODONE-ACETAMINOPHEN 5-325 MG ORAL TABS 1 tab two times a day HYDROCODONE-ACETAMINOPHEN 5-325 MG ORAL TABS 914074 HYDROCODONE-ACETAMINOPHEN Inactive ZITHROMAX Z-EARNEST 250 MG TABS 2 today and then 1 daily for 4 days ZITHROMAX Z-EARNEST 250 MG TABS 1112885 AZITHROMYCIN Inactive GUAIFENESIN-CODEINE 100-10 MG/5ML SYRP 5ml every 4 to 6 hours as needed for cough GUAIFENESIN-CODEINE 100-10 MG/5ML SYRP 483952 GUAIFENESIN-CODEINE Inactive HALOPERIDOL 10 MG ORAL TABS 1 tab q.d HALOPERIDOL 10 MG ORAL TABS 164151 HALOPERIDOL Inactive ASPIRIN 325 MG ORAL TABS 1 tab q.d ASPIRIN 325 MG ORAL TABS 002832 ASPIRIN Inactive FLUTICASONE PROPIONATE 50 MCG/ACT SUSP 2 sprays each nostril daily before bed. FLUTICASONE PROPIONATE 50 MCG/ACT SUSP [id number] FLUTICASONE PROPIONATE Inactive ZOFRAN 4 MG TABS 1 po q6hr PRN Nausea ZOFRAN 4 MG TABS [id number] ONDANSETRON HCL Inactive KEFLEX 500 MG CAP 1 po qid KEFLEX 500 MG CAP 896652 CEPHALEXIN Inactive ACETAMINOPHEN-CODEINE 120-12 MG/5ML SOLN 5 ml by mouth every 4-6 hours if needed for cough ACETAMINOPHEN-CODEINE 120-12 MG/5ML SOLN 407200 ACETAMINOPHEN-CODEINE Inactive PREDNISONE 20 MG TAB 1 tablet daily x 4 days PREDNISONE 20 MG TAB [id number] PREDNISONE Inactive TROPICAMIDE 0.5 % OPHTH SOLN 1 drop PRN eye spasms TROPICAMIDE 0.5 % [facility] SOLN 855214 TROPICAMIDE Inactive LEVAQUIN 500 MG TABS 1 daily for infection LEVAQUIN 500 MG TABS 320059 LEVOFLOXACIN Inactive PREDNISONE 10 MG TABS 2 daily for 5 days then 1 daily for 5 days PREDNISONE 10 MG TABS 139694 PREDNISONE Inactive EQ NICOTINE 21 MG/24HR TRANS [...] twice a day MUPIROCIN 2 % OINT 481104 MUPIROCIN Inactive BACTRIM DS 800-160 MG TAB Take one (1) tablet by mouth twice a day for 5 days BACTRIM DS 800-160 MG TAB [id number] TRIMETHOPRIM- SULFAMETHOXAZOLE Inactive LACTULOSE 10 GM/15ML ORAL SOLN 30mL oral BID for IBS-C LACTULOSE 10 GM/15ML ORAL SOLN 242852 LACTULOSE Inactive MIRALAX ORAL POWD 17GMS DAILY IN WATER MIRALAX ORAL POWD 965633 POLYETHYLENE GLYCOL 3350 Inactive CEFDINIR 300 MG CAPS by mouth twice a day CEFDINIR 300 MG CAPS 066117 CEFDINIR Inactive PREDNISONE 20 MG TAB 2 tabs daily for 3 days, 1 tab daily for 3 days, 1/2 tab daily for 2 days PREDNISONE 20 MG TAB 789264 PREDNISONE Inactive BACTRIM DS 800-160 MG TABS 1 po BID x 7 days BACTRIM DS 800-160 MG TABS 19820521 SULFAMETHOXAZOLE-TRIMETHOPRIM Inactive DIFLUCAN 150 MG TABS 1 pill every other day x 2 doses DIFLUCAN 150 MG TABS 499566 FLUCONAZOLE Inactive BACTRIM DS 800-160 MG TABS 1 pill by mouth twice daily BACTRIM DS 800-160 MG TABS 19820521 SULFAMETHOXAZOLE-TRIMETHOPRIM Inactive KEFLEX 500 MG CAP 1 po TID x 10 days KEFLEX 500 MG CAP 562409 CEPHALEXIN Inactive Advance Directives Directive Description Start [...] DIFF/PLT)/6399, COMPREHENSIVE METABOLIC PANEL, ... - Hematology erythrocyte (RBC) count 4.30 MILLION/UL 10*6/mm3 3.80-5.10 hemoglobin, blood 13.5 g/dL 11.7-15.5 hematocrit, blood 39.8 % 35.0-45.0 mean corpuscular volume, RBC 92.5 fL 80.0-100.0 mean corpuscular hemoglobin, RBC 31.4 pg 27.0-33.0 hemoglobin, blood 13.3 g/dL 11.7-15.5 mean corpuscular hemoglobin concentration, RBC 32.8 G/DL % 32.0- 36.0 red blood cell distribution width 12.9 % 11.0-15.0 platelet count 443 THOUSAND/UL 10*3/mm3 515-460 1324/03/01 mean platelet volume 8.2 fL 7.5-12.5 hematocrit, blood 40.7 % 35.0-45.0 mean corpuscular volume, RBC 91.4 fL 80.0-100.0 mean corpuscular hemoglobin, RBC 29.9 pg 27.0-33.0 leukocyte count, blood 16.6 THOUSAND/UL 10*3/mm3 3.8-10.8 erythrocyte (RBC) count 4.46 MILLION/UL 10*6/mm3 3.80-5.10 leukocyte count, blood 8.4 THOUSAND/UL 10*3/mm3 3.8-10.8 mean corpuscular hemoglobin concentration, RBC 33.9 G/DL % 32.0- 36.0 red blood cell distribution width 13.3 % 11.0-15.0 platelet count 349 THOUSAND/UL 10*3/mm3 132-044 6405/04/12 mean platelet volume 8.4 fL 7.5-12.5 Lab Report: CBC W/DIFF, Comp. Metabolic Panel, HGBA1C, Magnesium - Chemistry sodium, serum 141 mmol/L 471-133 0931/07/24 carbon dioxide, venous blood 27.8 mmol/L 21.0-32.0 [...] 369 10^3/MM^3 10*3/mm3 142-424 Lab Report: Chlamydia/GC APTIMA/38504 - Lab chlamydia DNA probe NOT DETECTED NOT DETECTED Lab Report: Chlamydia/GC APTIMA/57094 - Microbiology Neisseria gonorrhoeae DNA probe NOT DETECTED NOT DETECTED Lab Report: Chlamydia/GC APTIMA/21403, Urinalysis, Complete, with Reflex ... - Lab chlamydia DNA probe NOT DETECTED NOT DETECTED Lab Report: Chlamydia/GC APTIMA/35774, Urinalysis, Complete, with Reflex ... - Microbiology Neisseria gonorrhoeae DNA probe NOT DETECTED NOT DETECTED Lab Report: Chlamydia/GC APTIMA/85530, Urinalysis, Complete, with Reflex ... - Urinalysis [...] 33.7 mmol/L 21.0-32.0 sodium, serum 140 mmol/L 607-094 6449/06/28 creatinine, serum 0.86 mg/dL 0.55-1.30 alanine aminotransferase (SGPT), serum 38 U/L 12-78 aspartate aminotransferase (SGOT), serum 17 U/L 15-37 calcium, serum 9.3 mg/dL 8.5-10.1 bilirubin, serum, total 0.20 mg/dL 0.00-1.00 sodium, serum 140 mmol/L 540-632 9734/06/28 carbon dioxide, venous blood 23.8 mmol/L 21.0-32.0 potassium, serum 3.8 mmol/L 3.5-5.2 chloride, serum 104 mmol/L 98-107 blood glucose 78 mg/dL 65-110 urea nitrogen, blood 12 mg/dL 7-18 Lab Report: HEPATITIS PANEL, ACUTE W/REFLE - [...] 5.0-8.5 Encounters Code Encounter Date Provider Facility CPT-53787 Level 3 Est. Patient 10:53:17 CDT [facility] CPT-38482 Level 3 Est. Patient 11:08:35 CDT [facility] CPT-78626 Level 3 Est. Patient 15:55:20 CDT [facility] CPT-68500 Level 4 Est. Patient 10:49:34 CDT [facility] CPT-32886 Level 3 Est. Patient 10:00:25 [facility] Level 3 Est. Patient 10:29:30 CDT [facility] CPT-59744 Level 3 Est. Patient 11:04:38 CDT Renzo Barajas [facility] CPT-06947 Level 3 Est. 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 Patient 15:28:23 SHUTTLE BUS DRIVER [facility] Level 4 Est. Patient 10:20:54 SHUTTLE BUS DRIVER Suzan Boo [facility] CPT-25540 Level 3 Est. Patient 11:47:37 SHUTTLE BUS DRIVER Ahmet Carbajal MD [facility] CPT-01322 Level 3 Est. Patient 10:40:11 SHUTTLE BUS DRIVER Ahmet Carbajal MD [facility] CPT-23226 Level 3 Est. Patient 15:07:06 SHUTTLE BUS DRIVER Neeraj Collins MD [facility] CPT-78847 Level 4 Est. Patient 14:45:00 SHUTTLE BUS DRIVER Ahmet Carbajal MD [facility] CPT-12279 Level 3 Est. Patient 13:59:59 CDT Luigi Martínez [facility]-69152 Level 3 Est. Patient 18:18:53 CDT Neeraj Collins MD [facility] CPT-56840 Level 3 Est. Patient 15:50:44 CDT Vishal Hui MD [facility] CPT-98709 Level 3 Est. Patient 11:36:17 CDT Ahmet Carbajal MD [facility] CPT-51830 Level 3 Est. Patient 13:29:16 CDT Vishal Hui MD [facility] CPT-15664 Level 3 Est. Patient 14:27:52 CDT Neeraj Collins MD [facility] CPT-24879 Level 3 Est. Patient 08:56:03 CDT Luigi Martínez [facility] CPT-01290 Level 4 Est. Patient 12:11:48 CDT Fabiola Johnson [facility] CPT-64771 Level 3 New Patient 16:53:37 CDT Albert Caldera MD [facility] CPT-07206 Level 3 Est. Patient 11:25:49 CDT Renzo Thornton DO [facility] CPT-58839 Level 3 Est. Patient 15:22:01 CDT Ahmet Carbajal MD [facility] CPT-74906 Level 4 Est. Patient 09:00:51 SHUTTLE BUS DRIVER Vishal Hui MD [facility] CPT-55538 Level 3 Est. Patient 11:37:33 SHUTTLE BUS DRIVER Vishal Hui MD [facility] CPT-13674 Level 3 Est. Patient 08:41:09 SHUTTLE BUS DRIVER Vishal Hui MD [facility] CPT-23760 Level 4 Est. Patient 10:19:35 SHUTTLE BUS DRIVER Vishal Hui MD [facility] CPT-83234 Level 3 Est. Patient 13:35:45 CDT Vishal Hui MD [facility] CPT-17930 Level 4 Est. Patient 10:08:37 CDT Vishal Hui MD [facility] CPT-03041 Level 3 Est. Patient 11:22:10 CDT Vishal Hui MD [facility] CPT-71830 Level 3 Est. Patient 11:03:32 CDT Sahara Rodriguez MD [facility] CPT-41121 Level 3 Est. Patient 09:41:35 CDT Vishal Hui MD [facility] CPT-38764 Level 3 Est. Patient 12:00:41 CDT Neeraj Collins MD [facility] CPT-93651 Level 3 Est. Patient 09:16:24 CDT Vishal Hui MD [facility] CPT-33496 Level 4 Est. Patient 13:59:09 CDT Neeraj Collins MD [facility] CPT-59437 Level 3 Est. Patient 15:19:43 CDT Renzo Thornton DO [facility] CPT-59875 Level 3 Est. Patient 18:10:26 CDT Sahara Rodriguez MD [facility]-20011 Level 3 Est. Patient 14:49:50 CDT Vishal Hui MD [facility] CPT-62306 Level 4 Est. Patient 18:41:46 CDT Neeraj Collins MD [facility] CPT-75203 Level 4 Est. Patient 09:18:38 SHUTTLE BUS DRIVER Vishal Hui MD [facility] CPT-56920 Level 3 Est. Patient 14:43:55 SHUTTLE BUS DRIVER Vishal Hui MD [facility] CPT-60363 Level 3 Est. Patient 15:26:33 SHUTTLE BUS DRIVER Sahara Rodriguez MD PhD [facility] CPT-29674 Level 3 Est. Patient 10:32:14 SHUTTLE BUS DRIVER Vishal Hui MD [facility] CPT-08546 Level 3 Est. Patient 15:12:52 SHUTTLE BUS DRIVER Vishal Hui MD [facility] CPT-91867 Level 4 Est. Patient 09:19:27 CDT Vishal Hui MD [facility] CPT-25794 Level 3 Est. Patient 15:53:00 CDT Renzo Thornton [facility] CPT-21248 Level 3 Est. Patient 15:50:30 CDT Renzo Thornton [facility] CPT-97869 Level 3 Est. Patient 16:55:24 CDT Vishal Hui MD [facility] Procedures Code Procedure Name Date Entry Date Standard Description CPT-61699 Venipuncture Draw Fee 10:53:17 CDT CPT-45407 EKG Trac and Interp - XRAY USE ONLY 15:59:30 CDT 09/13 CPT-23291 Chest 1V Frontal - XRAY USE ONLY 15:59:30 CDT CPT-24531 Venipuncture Draw Fee 15:44:02 CDT CPT-87920 Venipuncture Draw Fee 08:41:12 CDT CPT-40392 Abd compl w upright - XRAY USE ONLY 10:27:59 CDT 06/28 CPT-27981 Smoking Cessation counseling 11:15:58 SHUTTLE BUS DRIVER CPT-G0439 Subsequent Annual Wellness Exam 09:30:58 SHUTTLE BUS DRIVER CPT-39269 TSH - LAB USE ONLY 08:50:26 SHUTTLE BUS DRIVER CPT-15692 CBC - LAB USE ONLY 08:50:26 SHUTTLE BUS DRIVER CPT-47482 Venipuncture Draw Fee 08:50:26 SHUTTLE BUS DRIVER CPT-26999 Abx/Therapy Injection 17:34:30 SHUTTLE BUS DRIVER CPT-54780 Nexplanon Removal with Reinsertion 14:09:32 CDT CPT-J7307 Nexplanon (Implant) 14:09:32 CDT CPT-OV Office Visit 14:09:32 CDT CPT-61690 UA w micro - LAB USE ONLY 16:21:13 CDT CPT-65272 Wet Mount - LAB USE ONLY 16:21:13 CDT CPT-90910 First Vx - Ix admin for Medicare patients 14:37:47 CDT CPT-47903 Fluzone Preservative Free Intramuscular Suspension 14:37 :47 CDT CPT-21551 Abx/Therapy Injection 13:54:22 CDT CPT-00348 Abx/Therapy Injection 08:47:09 CDT CPT-22180 Abx/Therapy Injection 13:29:56 CDT CPT-58446 Abx/Therapy Injection 08:36:16 CDT CPT-21528 [place] - LAB USE ONLY 17:44:58 CDT CPT-01804 UA w micro - LAB USE ONLY 17:44:58 CDT CPT-85591 CMP - LAB USE ONLY 17:44:58 CDT CPT-16099 Venipuncture Draw Fee 17:44:58 CDT CPT-17173 Cervical Min 4V - XRAY USE ONLY 09:01:40 CDT CPT-39972 Chest 2V Frontal and Lat - XRAY USE ONLY 11:06:31 CDT CPT-33792 EKG Trac and Interp - XRAY USE ONLY 11:31:43 CDT 08/26 CPT-J3420 Vitamin B12 1000mcg (Cyanocobalamin) 08:10:26 SHUTTLE BUS DRIVER 04/12 CPT-56827 Abx/Therapy Injection 08:10:26 SHUTTLE BUS DRIVER CPT-G0438 Initial Annual Wellness Exam 19:01:01 SHUTTLE BUS DRIVER CPT-J3420 Vitamin B12 1000mcg (Cyanocobalamin) 16:57:46 CDT 08/14 CPT-80843 Recombivax HB Injection Suspension 5 MCG/0.5ML 08:37:50 SHUTTLE BUS DRIVER CPT-01923 Immunization Single Admin 08:37:50 SHUTTLE BUS DRIVER CPT-J3420 Vitamin B12 1000mcg (Cyanocobalamin) 08:32:16 SHUTTLE BUS DRIVER 03/11 CPT-32690 Abx/Therapy Injection 08:32:16 SHUTTLE BUS DRIVER CPT-18353 Chest 2V Frontal and Lat 11:46:38 SHUTTLE BUS DRIVER CPT-65114 Venipuncture Draw Fee 09:12:45 SHUTTLE BUS DRIVER CPT-J3420 Vitamin B12 1000mcg (Cyanocobalamin) 08:50:15 SHUTTLE BUS DRIVER 02/08 CPT-52000 Abx/Therapy Injection 08:50:15 SHUTTLE BUS DRIVER CPT-Cryo Cryotherapy 10:19:35 SHUTTLE BUS DRIVER CPT-000 Give Appropriate Flu Vaccine 09:22:16 CDT CPT-J3420 Vitamin B12 1000mcg (Cyanocobalamin) 19:08:57 CDT 01/11 CPT-48233 Abx/Therapy Injection 19:08:57 CDT CPT-J3420 Vitamin B12 1000mcg (Cyanocobalamin) 08:19:08 CDT 12/11 CPT-07939 Abx/Therapy Injection 08:19:08 CDT CPT-J3420 Vitamin B12 1000mcg (Cyanocobalamin) 14:48:00 CDT 11/09 CPT-87716 Abx/Therapy Injection 14:47:59 CDT CPT-J3420 Vitamin B12 1000mcg (Cyanocobalamin) 08:34:04 CDT 10/09 CPT-71027 Abx/Therapy Injection 08:34:04 CDT CPT-J3420 Vitamin B12 1000mcg (Cyanocobalamin) 09:18:52 CDT 09/11 CPT-36620 Abx/Therapy Injection 09:18:52 CDT CPT-J3420 Vitamin B12 1000mcg (Cyanocobalamin) 08:35:44 CDT 09/04 CPT-52020 Abx/Therapy Injection 08:35:44 CDT CPT-77734 Immunization Single Admin 11:07:16 CDT CPT-64730 Hepatitis B adult IM 11:07:16 CDT CPT-J3420 Vitamin B12 1000mcg (Cyanocobalamin) 11:00:49 CDT 08/28 CPT-J1040 Depo Medrol 80 mg (Methyl Prednisolone Acetate) 11:00: 49 CDT CPT-81120 Abx/Therapy Injection 11:00:49 CDT CPT-J1040 Depo Medrol 80 mg (Methyl Prednisolone Acetate) 09:16: 23 CDT CPT-J3420 Vitamin B12 1000mcg (Cyanocobalamin) 08:27:05 CDT 08/20 CPT-54374 Abx/Therapy Injection 08:27:05 CDT CPT-01776 Recombivax HB Injection Suspension 5 MCG/0.5ML 10:00:41 CDT CPT-70237 Administration single or combination vaccine inc oral 10 :00:41 CDT CPT-14336 Sono transvag pelvis non OB uterus ovaries cervix 16:36: 57 CDT CPT-79743 LS spine comp w obliq 09:50:55 SHUTTLE BUS DRIVER CPT-36522 Abd compl w upright 09:50:55 SHUTTLE BUS DRIVER CPT-J1100 Decadron 4mg (Dexamethasone) 15:51:24 SHUTTLE BUS DRIVER CPT-J1030 Depo Medrol 40 mg (Methyl Prednisolone Acetate) 15:51: 24 SHUTTLE BUS DRIVER CPT-87306 Abx/Therapy Injection 15:51:24 SHUTTLE BUS DRIVER CPT-J1100 Decadron 4mg (Dexamethasone) 15:26:33 SHUTTLE BUS DRIVER CPT-J1030 Depo Medrol 40 mg (Methyl Prednisolone Acetate) 15:26: 33 SHUTTLE BUS DRIVER CPT-39716 Sono retroperitoneal complete kidneys and bladder 17:15: 30 CDT CPT-87998 Abd compl w upright 16:09:25 CDT CPT-J1100 Decadron 8mg (Dexamethasone) 17:07:57 CDT CPT-34941 Abx/Therapy Injection 17:07:57 CDT CPT-J1100 Decadron 8mg (Dexamethasone) 16:55:24 CDT CPT-53271 Chest 2V Frontal and Lat 16:32:44 CDT
--- OUTSIDE RECORDS SUMMARY | 2016-11-04 19:37 | XMS REPORT ---
Author Author [facility] Medical Staff Organization [facility] Address [address] [place], [place] [id number] Phone [phone] Care Team Providers Care Analytical Manager Name Role Phone TINO ABRAMS MD PP [phone] Summary purpose TRANSITION OF CARE AUTO GENERATION [...] tests and/or laboratory data RESULTS Routine Urinalysis :00:00 Result Normal Range Units Color YELLOW Clarity Clear Specific [place] 1.020 1.003-1.035 pH 6.5 4.5-8.0 Glucose NEGATIVE Bilirubin NEGATIVE Ketones NEGATIVE Protein NEGATIVE Urobilinogen 0.2 0-0.2 E.U./dL Nitrites NEGATIVE Blood NEGATIVE Leukocytes NEGATIVE WBCs 0-5 RBCs No RBC's Seen. Squamous Epithelial 1+ Bacteria 2+ Drug Screen In House :00:00 Result Normal Range Units Amphetamine Negative Negative Barbiturates Negative Negative Benzodiazepines Negative Negative Cannabinoids Negative Negative *Triage TOXis a medical drug screen to be used only for assessment and treatment of patients. This drug screen cannot be used for employment or legal purposes. Cocaine Negative Negative Mamp/MDMA AB Positive Negative Methadone Negative Negative Opiates Negative Negative Phencyclidine Negative Negative Tricyclic Antidepressants AB Positive Negative Chemistry :22:00 Result Normal Range Units Sodium 141 134-145 mEq/l Potassium 4.3 3.5-5.1 mEq/l Chloride 106 98-107 mEq/l CO2 23.0 22-28 mEq/l Glucose 99 70-105 mg/dl BUN 14 7-18 mg/dl Creatinine 0.74 0.6-1.0 mg/dl Calcium 8.7 8.4-10.2 mg/dl TP - Total Protein 7.1 6.0-8.3 g/dl Albumin 3.7 3.5-5 g/dl Bilirubin - Total 0.3 0.1-1.0 mg/dl AST 20 10-42 IU/L ALT 34 12-65 IU/L ALP H 126 25-72 IU/L Osmolality 281.8 280-300 mOsm/L Albumin/Globulin Ratio 1.1 0-8 Anion GAP 12.0 8-16 BUN/Creatinine Ratio 18.9 10-20 Estimated GFR 94 >=60 mL/min/1.7 Hematology :22:00 Result Normal Range Units WBC H 11.6 4.8-10.8 103/uL RBC 4.5 4.2-5.4 106/uL HGB 14.0 12.0-16.0 g/dl HCT 42.2 36.9-47.0 % MCV 93.2 81-99 FL MCH 30.9 27-31 pg MCHC 33.2 33-37 g/dl RDW 12.3 11.5-15.5 % PLT 350 130-400 103/uL MPV 9.4 7.3-10.4 FL Neutro % 60.1 40-70 % Lymph % 29.5 20-40 % [place] % 7.8 0-10.0 % Eos % 1.8 0-7.0 % Baso % 0.5 0-2 % Neutro # 7.0 1.5-7.5 103/uL Lymph # 3.4 0.9-4.0 103/uL [place] # H 0.9 0-0.8 103/uL Eos # 0.2 0-0.6 103/uL Baso # 0.1 0-0.1 103/uL Special Chemistry [id number]:22:00 Result Normal Range Units ETOH < 3 0-5 mg/dl Body Fluid [id number]:00:00 Result Normal Range Units pH 6.5 4.5-8.0 Radiology Results [id number]:22:00 Result Normal Range Units MPV 9.4 7.3-10.4 FL History of procedures Procedure Code Code Type Description Date Performed Performing Physician [id number] CPT-4 ROUTINE VENIPUNCTURE 03-04-2015 MANAS SCHRADER 44008 CPT-4 COMPREHEN METABOLIC PANEL 03-04-2015 MANAS SCHRADER 86393 CPT-4 DRUG SCREEN QUANTALCOHOLS 03-04-2015 MANAS SCHRADER 50133 CPT-4 URINALYSIS, AUTO W/SCOPE 03-04-2015 MANAS SCHRADER 01514 CPT-4 URINE TEST 03-04-2015 MANAS SCHRADER 24903 CPT-4 COMPLETE CBC W/AUTO DIFF WBC 03-04-2015 MANAS SCHRADER 94479 CPT-4 ELECTROCARDIOGRAM, TRACING 03-04-2015 MANAS SCHRADER G0434 CPT-4 DRUG SCREEN MULTI DRUG CLASS 03-04-2015 MANAS SCHRADER J1885 CPT-4 TORADOL SYR 30MG/ML 03-04-2015 MANAS SCHRADER J1885 CPT-4 TORADOL SYR 30MG/ML 03-04-2015 MANAS SCHRADER J2060 CPT-4 LORAZEPAM INJECTION 03-04-2015 MANAS SCHRADER J2405 CPT-4 ONDANSETRON HCL INJECTION 03-04-2015 MANAS SCHRADER J2550 CPT-4 PROMETHAZIEN 25MG/ML 03-04-2015 MANAS SCHRADER J7030 CPT-4 NORMAL SALINE SOLUTION INFUS 03-04-2015 MANAS SCHRADER 49105 CPT-4 EMERGENCY DEPT VISIT 03-04-2015 MANAS SCHRADER 27093 CPT-4 EMERGENCY DEPT VISIT 03-04-2015 MANAS SCHRADER 00524 CPT-4 THER/PROPH/DIAG INJ, SC/IM 03-04-2015 MANAS SCHRADER 66752 CPT-4 THER/PROPH/DIAG INJ, IV PUSH 03-04-2015 MANAS SCHRADER 87684 CPT-4 TX/PRO/DX INJ NEW DRUG FINISHING FRAME RUNNER 03-04-2015 MANAS SCHRADER 84310 CPT-4 TX/PRO/DX INJ NEW DRUG ADDON 03-04-2015 MANAS SCHRADER Functional status Functional Status Finding Observation Time Abdomen Appearance round :45 Abdomen non-tender :45 Vick no :45 Urination normal :45 Quality sym/unlabored :45 Cough absent :45 Secretions no :45 Airway natural :45 Chest Tube no :45 Oxygen no :50 Temp >100.4 no :45 Temp <96.8 no :45 Chills with rigors no :45 HR > 90bpm no :45 Respirations > 20 no :45 Systolic <90 no :45 headache stiff neck no :45 Rapid Resp no :45 IV Site Location L Ac :00 IV Type peripheral :00 IV Site Information discontinued :00 IV Site Start Attmpt 1 times [id number]:15 IV Site Festus 22 [id number]:15 IV Site Appearance WNL [id number]:15 IV Site Color clear :15 IV Site Patent yes [id number]:15 Dressing Type occlusive [id number]:15 Nursing Note Transferred to [facility] in [place] per POV. :00 Vital signs Type Value Date Respiration Rate 16breaths per minute :50 Pulse 72beats per minute :50 Oxygen Saturation 98% :50 BP Systolic 117mmHg :50 BP Diastolic 42mmHg :50 Temperature 98.2F :50 Height 65inches :45 Weight 280LB :45 Social history Type Value Smoking Status FORMER SMOKER Treatment Plan No treatment plan text is available for this visit. Hospital discharge instructions Dismissal Condition good Disposition on DC transfered Comment: Bhumi Mayberry PNE Vac none Flu Vac 2015 Tetanus Vac unknown
--- OUTSIDE RECORDS SUMMARY | 2016-11-04 19:37 | XMS REPORT | Clinical Summary ---
Author Author Admin, E Organization [employer] Address Unknown Phone Unavailable Allergies, Adverse Reactions, [...] ORAL CHEW 2 daily po PROBIOTIC PRODUCT [id number] Active Jillina Frazell [employer] Active IBUPROFEN 600 MG TAB 1 po TID PRN IBUPROFEN 10765291299 Active Jillina Frazell [employer] Active BACTRIM DS 800-160 MG TAB 1 tab by mouth twice daily TRIMETHOPRIM-SULFAMETHOXAZOLE 79506419281 Active Neeraj Collins MD Active BACTRIM DS 800-160 MG TABS 1 po BID x 7 days SULFAMETHOXAZOLE-TRIMETHOPRIM 08619198098 No Longer Active Vishal Hui MD Active CHANTIX STARTING MONTH EARNEST 0.5 MG X 11 & 1 MG X 42 TABS 0.5mg daily for 3 days , then 0.5mg BID for 4 days, then 1mg BID VARENICLINE TARTRATE 38031245551 No Longer Active TAMARA Gray Active METOPROLOL TARTRATE 50 MG TAB 1 po bid METOPROLOL TARTRATE 19082083395 Active Vishal Hui MD Active TRAZODONE HCL 100 MG TAB take 1 at bedtime TRAZODONE HCL 89175228425 Active Vishal Hui MD Active AMLODIPINE BESYLATE 5 MG TABS 1 tablet by mouth daily AMLODIPINE BESYLATE 42985969980 Active Vishal Hui MD Active VERAPAMIL HCL CR 120 MG TAB CR 1 po bid VERAPAMIL HCL 74800448091 No Longer Active Vishal Hui MD Active METOPROLOL SUCCINATE 50 MG TB24 1 tablet by mouth daily METOPROLOL SUCCINATE 60074762246 No Longer Active Vishal Hui MD Active TRAMADOL HCL 50 MG TABS 1-2 po TID PRN Pain TRAMADOL HCL 38534370173 Active Vishal Hui MD Active SAPHRIS 5 MG SUBL 1 po bid ASENAPINE MALEATE 54173131606 Active Vishal Hui MD Active SAPHRIS 10 MG SUBL 1 tab po bid ASENAPINE MALEATE 74957417377 No Longer Active Vishal Hui MD Active LISINOPRIL 20 MG TABS 1 tab po qd LISINOPRIL 73183723596 No Longer Active Vishal Hui MD Active BENADRYL 25 MG CAP 2 po tid prn anxiety DIPHENHYDRAMINE HCL 15600775948 Active Vishal Hui MD Active LATUDA 80 MG TABS Take one by mouth daily LURASIDONE HCL 33972976812 Active Vishal Hui MD Active LATUDA 20 MG TABS Take one by mouth daily LURASIDONE HCL 57221116050 No Longer Active Vishal Hui MD Active TRAZODONE HCL 50 MG TABS 1/2 tab po qd prn for anxiety TRAZODONE HCL 80900629787 No Longer Active Vishal Hui MD Active PIROXICAM 20 MG CAPS 1 cap po qd PRN Pain PIROXICAM 25477325336 Active Vishal Hui MD Active OMEPRAZOLE 20 MG TBEC 1 po q a.m. 30min prior to first food intake OMEPRAZOLE 48002601252 Active Vishal Hui MD Active RANITIDINE HCL 150 MG CAPS 1 twice a day RANITIDINE HCL 74535606674 Active Vishal Hui MD Active MULTIVITAMINS CAPS Take one by mouth daily MULTIPLE VITAMIN 06827807956 Active Vishal Hui MD Active MELATONIN 3 MG CAPS 2 po q hs MELATONIN 44384576376 Active Vishal Hui MD Active PROZAC 20 MG CAP Take one by mouth daily FLUOXETINE HCL 54980039273 Active Vishal Hui MD Active LINZESS 290 MCG CAPS Take one by mouth daily LINACLOTIDE 36222483670 Active Vishal Hui MD Active SAPHRIS 5 MG SUBL 1 tab po qd ASENAPINE MALEATE 43945480544 No Longer Active Vishal Hui MD Active ZALEPLON 10 MG CAPS 1 cap po every other night ZALEPLON 45508302224 No Longer Active Vishal Hui MD Active LYRICA 50 MG CAPS 1 tab po TID PREGABALIN 09420864166 No Longer Active Vishal Hui MD Active LORATADINE 10 MG TABS 1 tab po qd LORATADINE 85083264433 No Longer Active Vishal Hui MD Active VERAPAMIL HCL ER 180 MG CR-TABS 1 tab po bid VERAPAMIL HCL 71355842028 No Longer Active Vishal Hui MD Active MIRALAX POWD 1 capfull once daily POLYETHYLENE GLYCOL 3350 31316405125 No Longer Active Vishal Hui MD Active PREDNISONE 20 MG TABS 1 tab po qd PREDNISONE 48954847296 No Longer Active Renzo Thornton DO Active LEVOFLOXACIN 500 MG TABS 1 tab po qd LEVOFLOXACIN 39957209668 No Longer Active Renzo Thornton DO Active BUSPIRONE HCL 15 MG TABS 1 tab po TID BUSPIRONE HCL 79578229970 No Longer Active Renzo Thornton DO Active BENZTROPINE MESYLATE 1 MG TABS 1 tab po qd BENZTROPINE MESYLATE 19435055491 No Longer Active Renzo Thornton DO Active ATENOLOL 25 MG TABS 1 tab po qd ATENOLOL 80037056567 No Longer Active Renzo Thornton DO Active ESCITALOPRAM OXALATE 20 MG TABS 1 tab po qd ESCITALOPRAM OXALATE 46656839733 No Longer Active Renzo Thornton DO Active ADVAIR DISKUS 250-50 MCG/DOSE AEPB 1 puff BID FLUTICASONE-SALMETEROL 98407835668 No Longer Active Renzo Thornton DO Active PREDNISONE 20 MG TAB 2 tabs daily for 3 days, 1 tab daily for 3 days, 1/2 tab daily for 2 days PREDNISONE 14366065796 No Longer Active Vishal Hui MD Active CEFDINIR 300 MG CAPS by mouth twice a day CEFDINIR 73863386324 No Longer Active Vishal Hui MD Active LANSOPRAZOLE 30 MG CPDR 1 cap po qd LANSOPRAZOLE 85354113042 No Longer Active Vishal Hui MD Active TOPAMAX 25 MG TABS 1 tab po bid TOPIRAMATE 03946415272 Active Vishal Hui MD Active MINIPRESS 2 MG CAPS 1 cap po at night PRAZOSIN HCL 04167669029 Active Vishal Hui MD Active BACLOFEN 20 MG TABS 1 tab po tid BACLOFEN 92344795112 Active Vishal Hui MD Active ADVAIR DISKUS 250-50 MCG/DOSE AEPB 1 puff BID ADVAIR DISKUS 250-50 MCG/DOSE AEPB FLUTICASONE-SALMETEROL Inactive ESCITALOPRAM OXALATE 20 MG TABS 1 tab po qd ESCITALOPRAM OXALATE 20 MG TABS 908664 ESCITALOPRAM OXALATE Inactive ATENOLOL 25 MG TABS 1 tab po qd ATENOLOL 25 MG TABS 506828 ATENOLOL Inactive BENZTROPINE MESYLATE 1 MG TABS 1 tab po qd BENZTROPINE MESYLATE 1 MG TABS 650170 BENZTROPINE MESYLATE Inactive BUSPIRONE HCL 15 MG TABS 1 tab po TID BUSPIRONE HCL 15 MG TABS 388234 BUSPIRONE HCL Inactive LEVOFLOXACIN 500 MG TABS 1 tab po qd LEVOFLOXACIN 500 MG TABS 222577 LEVOFLOXACIN Inactive PREDNISONE 20 MG TABS 1 tab po qd PREDNISONE 20 MG TABS 337998 PREDNISONE Inactive MIRALAX POWD 1 capfull once daily MIRALAX POWD 590951 POLYETHYLENE GLYCOL 3350 Inactive VERAPAMIL HCL ER 180 MG CR-TABS 1 tab po bid VERAPAMIL HCL ER 180 MG CR-TABS VERAPAMIL HCL Inactive LORATADINE 10 MG TABS 1 tab po qd LORATADINE 10 MG TABS 586791 LORATADINE Inactive LYRICA 50 MG CAPS 1 tab po TID LYRICA 50 MG CAPS PREGABALIN Inactive ZALEPLON 10 MG CAPS 1 cap po every other night ZALEPLON 10 MG CAPS 733553 ZALEPLON Inactive SAPHRIS 5 MG SUBL 1 tab po qd SAPHRIS 5 MG SUBL ASENAPINE MALEATE Inactive TRAZODONE HCL 50 MG TABS 1/2 tab po qd prn for anxiety TRAZODONE HCL 50 MG TABS 669471 TRAZODONE HCL Inactive LATUDA 20 MG TABS Take one by mouth daily LATUDA 20 MG TABS LURASIDONE HCL Inactive LISINOPRIL 20 MG TABS 1 tab po qd LISINOPRIL 20 MG TABS 337437 LISINOPRIL Inactive SAPHRIS 10 MG SUBL 1 [...] twice a day CEFDINIR 300 MG CAPS 092009 CEFDINIR Inactive PREDNISONE 20 MG TAB 2 tabs daily for 3 days, 1 tab daily for 3 days, 1/2 tab daily for 2 days PREDNISONE 20 MG TAB 225662 PREDNISONE Inactive BACTRIM DS 800-160 MG TABS [...] outside labs entered on flowsheet - Hematology hemoglobin, blood 13.2 g/dL platelet count 364 10*3/mm3 leukocyte count, blood 8.9 10*3/mm3 Lab Report: Comp. Metabolic Panel - Chemistry sodium, serum 141 mmol/L [phone] potassium, serum 4.3 mmol/L 3.5-5.2 chloride, serum [...] 16 mg/dL 7-18 sodium, serum 139 mmol/L 798-742 2655/12/31 creatinine, serum 1.00 mg/dL 0.60-1.30 alanine aminotransferase (SGPT), serum 41 U/L 12-78 aspartate aminotransferase (SGOT), serum 17 U/L 15-37 calcium, serum 8.6 mg/dL 8.5-10.1 bilirubin, serum, total 0.30 mg/dL 0.00-1.00 cholesterol, serum 108 mg/dL 631-614 0755/12/31 triglyceride, serum, fasting 120 mg/dL 30-200 HDL [...] Lab Report: UADIP W/MICRO, AUTO - Urinalysis pH, urine, semiquantitative 6.0 5.0-8.5 specific gravity, urine 1.020 1.000-1.030 appearance, urine Clear Clear urine color Yellow Colorless;Lightyellow;Straw;Yellow urobilinogen, urine, semiquantitative (dipstick) 0.2 Normal leukocyte esterase, urine, by dipstick Negative Negative nitrite, urine, semiquantitative Negative Negative glucose, urine, semiquantitative Negative Negative ketones, urine, by test strip Negative Negative bilirubin, urine Negative Negative Lab Report: UADIP W/MICRO, AUTO, [facility] [place] - Chemistry RBC, urine, dipstick Negative Negative protein, total urine random Negative mg/dL Negative human chorionic gonadotropin, urine, qualitative (urine test) Negative Negative Lab Report: UADIP W/MICRO, AUTO, [facility] [place] - Urinalysis glucose, urine, semiquantitative Negative Negative appearance, urine Clear Clear specific gravity, urine 1.025 1.000-1.030 pH, urine, semiquantitative 7.0 5.0-8.5 urobilinogen, urine, semiquantitative (dipstick) 0.2 Normal leukocyte esterase, urine, by dipstick Negative Negative nitrite, urine, semiquantitative Negative Negative urine color Yellow Colorless;Lightyellow;Straw;Yellow ketones, urine, by test strip Negative Negative bilirubin, urine Negative Negative Lab Report: Varicella-Zoater Inga IgG,IgM/97358, HEP Be Antibody/556, RUB ... - Serology rubella antibody, serum, IgG 2.88 Encounters Code Encounter Date Provider Facility CPT-12924 Level 3 Est. Patient 14:49:50 CDT Vishal Hui MD [facility] CPT-86497 Level 4 Est. Patient 18:41:46 CDT Neeraj Collins MD [facility] CPT-95901 Level 4 Est. Patient 09:18:38 [employer]WASHER [employer]USSER Vishal Hui MD [facility] CPT-77075 Level 3 Est. Patient 14:43:55 D[employer]USSER Vishal Hui MD [facility] CPT-27780 Level 3 Est. Patient 15:26:33 DISHWASHER [employer]USSER Sahara Rodriguez MD PhD [facility] CPT-18742 Level 3 Est. Patient 10:32:14 [employer]USSER Vishal Hui MD [facility] CPT-17015 Level 3 Est. Patient 15:12:52 DISHWASHER [employer]USSER Vishal Hui MD [facility] CPT-42026 Level 4 Est. Patient 09:19:27 CDT Vishal Hui MD [facility] CPT-01030 Level 3 Est. Patient 15:53:00 CDT Renzo Thornton [facility] CPT-69073 Level 3 Est. Patient 15:50:30 CDT Renzo Thornton [facility] CPT-50238 Level 3 Est. Patient 16:55:24 CDT Vishal Hui MD [facility] Procedures Code Procedure Name Date Entry Date Standard Description CPT-96301 Recombivax HB Injection Suspension 5 MCG/0.5ML 10:00:41 CDT CPT-81832 Administration single or combination vaccine inc oral 10 :00:41 CDT CPT-04222 Sono transvag pelvis non OB uterus ovaries cervix 16:36: 57 CDT CPT-21011 LS spine comp w obliq 09:50:55 DISHWASHER BUSSER CPT-43132 Abd compl w upright 09:50:55 DISHWASHER [employer]USSER CPT-J1100 Decadron 4mg (Dexamethasone) 15:51:24 DISHWASHER BUSSER CPT-J1030 Depo Medrol 40 mg (Methyl Prednisolone Acetate) 15:51: 24 DISHWASHER BUSSER CPT-33772 Abx/Therapy Injection 15:51:24 DISHWASHER BUSSER CPT-J1100 Decadron 4mg (Dexamethasone) 15:26:33 D[employer]ER [employer] CPT-J1030 Depo Medrol 40 mg (Methyl Prednisolone Acetate) 15:26: 33 D[employer]WASHER [employer]USSER CPT-84917 Sono retroperitoneal complete kidneys and bladder 17:15: 30 CDT CPT-79377 Abd compl w upright 16:09:25 CDT CPT-J1100 Decadron 8mg (Dexamethasone) 17:07:57 CDT CPT-49397 Abx/Therapy Injection 17:07:57 CDT CPT-J1100 Decadron 8mg (Dexamethasone) 16:55:24 CDT CPT-72491 Chest 2V Frontal and Lat 16:32:44 CDT
--- OUTSIDE RECORDS SUMMARY | 2016-11-04 19:40 | XMS REPORT | Clinical Summary ---
Author Author Admin, FLOR Organization [employer] Address Unknown Phone Unavailable Allergies, Adverse Reactions, [...] Morbid obesity 278.01 Active Juliet Kimbrough MANAGER CORPORATE Morbid obesity 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 Active Juliet [...] Nocturnal hypoxia 799.02 Active Fabiola Johnson MANAGER CORPORATE Hypoxemia Neck pain 723.1 Resolved Vishal Hui [...] fibula Vaginal discharge 623.5 Active Luigi Martínez MANAGER CORPORATE Leukorrhea, not specified as infective DYSURIA 788.1 [...] cessation discussed ICD-305.1 Inactive Vishal Hui MD Vaginitis ICD-616.10 Inactive Vishla Hui MD Gait unsteady ICD-781.2 Inactive Ablert Caldera MD [place] ICD-214.9 Inactive Albert Caldera [...] 6 hours as needed for cough GUAIFENESIN-CODEINE 68724293006 Active Ahmet Carbajal MD Active PREDNISONE 20 MG TABS 2 daily for 5 days then 1 daily for 5 days PREDNISONE 17175554339 Active Ahmet Carbajal MD Active LAMICTAL 100 MG ORAL TABS 1 tab q.d LAMOTRIGINE 74789593488 Active Ahmet Carbajal MD Active BENADRYL 25 MG CAP 4 po at bedtime for insomnia DIPHENHYDRAMINE HCL 31812393652 No Longer Active Ahmet Carbajal MD Active ADVAIR DISKUS 250-50 MCG/DOSE INH AEPB 1 puff twice a day for asthma FLUTICASONE-SALMETEROL 42127946861 No Longer Active Ahmet Carbajal MD Active KLONOPIN 1 MG ORAL TABS 1 tab po TID CLONAZEPAM 26379073681 No Longer Active Ahmet Carbajal MD Active ABILIFY MAINTENA 400 MG IM SUSR 400mg injection every 26 days ARIPIPRAZOLE 35306882985 No Longer Active Ahmet Carbajal MD Active HALOPERIDOL 10 MG ORAL TABS 1 tab q.d HALOPERIDOL 09073157829 Active Ahmet Carbajal MD Active ASPIRIN 325 MG ORAL TABS 1 tab q.d ASPIRIN 18655650730 Active Ahmet Carbajal MD Active HYDROCODONE-ACETAMINOPHEN 5-325 MG ORAL TABS 1 tab two times a day HYDROCODONE-ACETAMINOPHEN 71700711440 Active Ahmet Carbajal MD Active TRAMADOL HCL 50 MG TABS 1/2-1 tab TID PRN TRAMADOL HCL 39084333023 No Longer Active Ahmet Carbajal MD Active BACTRIM DS 800-160 MG TABS 1 twice a day SULFAMETHOXAZOLE- TRIMETHOPRIM 69312798723 No Longer Active Ahmet Carbajal MD Active PROAIR HFA 108 (90 BASE) MCG/ACT AERS 2 puffs four times a day as needed 2015 ALBUTEROL SULFATE 25111157265 Active Ahmet Carbajal MD Active EQ NICOTINE 21 MG/24HR TRANS PT24 Apply daily to stop smoking NICOTINE 44800110197 Active Ahmet Carbajal MD Active MONISTAT 7 COMBO PACK WOODROW 100 & 2 MG-% (9GM) VAG KIT 1 applicatorful per vagina q pm x 7 MICONAZOLE NITRATE 87237579605 No Longer Active Ahmet Carbajal MD Active FLAGYL 500 MG TAB 1 tablet by mouth bid METRONIDAZOLE 53551001310 No Longer Active Ahmet Carbajal MD Active OXYCODONE HCL ER 10 MG ORAL T12A 1/2 tab by mouth every 4 hours prn OXYCODONE HCL 35536502327 No Longer Active Ahmet Carbajal MD Active METHYLPREDNISOLONE 4 MG ORAL TABS po daily METHYLPREDNISOLONE 58687617042 No Longer Active Ahmet Carbajal MD Active LEVOFLOXACIN 500 MG ORAL TABS po daily LEVOFLOXACIN 03978955170 No Longer Active Ahmet Carbajal MD Active VIIBRYD 10 MG ORAL TABS Take 1 tablet once a day VILAZODONE HCL 27802831840 No Longer Active Ahmet Carbajal MD Active TOPAMAX 50 MG ORAL TABS 1 tab twice daily TOPIRAMATE 56708209419 No Longer Active Ahmet Carbajal MD Active DICLOFENAC SODIUM 50 MG TBEC 1 tablet by mouth four times daily PRN Pain 2015 DICLOFENAC SODIUM 68678569778 No Longer Active Ahmet Carbajal MD Active ADZENYS XR-ODT 6.3 MG ORAL TBED 1 tab po daily for ADHD AMPHETAMINE 79998884830 No Longer Active Ahmet Carbajal MD Active CHANTIX 1 MG TABS 1 twice a day to help quit smoking VARENICLINE TARTRATE 47002762947 No Longer Active Dipika Burgos MD Active CHANTIX STARTING MONTH EARNEST 0.5 MG X 11 & 1 MG X 42 TABS take as directed 2015 VARENICLINE TARTRATE 93660877906 No Longer Active Dipika Burgos MD Active TESSALON PERLES 100 MG CAP 1 to 2 tablets by mouth 3 times daily as needed for cough BENZONATATE 97423229370 No Longer Active Luigi Martínez APRN Active IMITREX 50 MG ORAL TABS 0.5 po x 1 PRN Headache. May repeat dose x 1 in 2 hours if needed SUMATRIPTAN SUCCINATE 76470848814 Active TAMARA Casey Active HYDROCODONE-ACETAMINOPHEN 5-325 MG TABS 1 to 2 four times a day as needed for pain use until can be seen by specialist HYDROCODONE- ACETAMINOPHEN 15135986676 No Longer Active Vishal Hui MD Active PROAIR HFA 108 (90 BASE) MCG/ACT AERS 2 puffs four times a day as needed 2015 ALBUTEROL SULFATE 50389402221 No Longer Active Vishal Hui MD Active PREDNISONE 20 MG TABS 2 daily for 5 days then 1 daily for 5 days PREDNISONE 54879985747 No Longer Active Vishal Hui MD Active ZITHROMAX Z-EARNEST 250 MG TABS 2 today and then 1 daily for 4 days AZITHROMYCIN 65401317726 No Longer Active Vishal Hui MD Active DICLOFENAC POTASSIUM TABS Take 1 tablet twice a day (pt. is not sure of the dose.) DICLOFENAC POTASSIUM TABS 59659750983 No Longer Active Vishal Hui MD Active VERAPAMIL HCL ER 120 MG ORAL CR-TABS Take 1 tablet by mouth twice a day. VERAPAMIL HCL 60176055925 Active Vishal Hui MD Active FLAGYL 500 MG TAB 1 tablet by mouth bid METRONIDAZOLE 00580446456 No Longer Active Vishal Hui MD Active FLUTICASONE PROPIONATE 50 MCG/ACT SUSP 2 sprays each nostril daily before bed. FLUTICASONE PROPIONATE 68977761098 Active Fabiola Johnson APRN Active VALIUM 5 MG TAB Take 1-2 tablets daily DIAZEPAM 75101039974 No Longer Active Fabiola Johnson APRN Active METOPROLOL TARTRATE 25 MG ORAL TABS 1/2 tablet twice daily for heart rate and blood pressure METOPROLOL TARTRATE 34880371747 No Longer Active Fabiola Johnson APRN Active MIRALAX ORAL POWD 17GMS DAILY IN WATER POLYETHYLENE GLYCOL 3350 71682730779 Active Vishal Hui MD Active MIRALAX PACK 1 po qd PRN Constipation POLYETHYLENE GLYCOL 3350 06394403913 No Longer Active Ahmet Carbajal MD Active MINIPRESS 2 MG CAPS 4 cap po at night PRAZOSIN HCL 10534484163 No Longer Active Ahmet Carbajal MD Active PIROXICAM 20 MG CAPS 1 cap po qd PRN Pain PIROXICAM 28366774358 No Longer Active Ahmet Carbajal MD Active TRAMADOL HCL 50 MG TABS 1-2 po TID PRN Pain TRAMADOL HCL 98168008224 No Longer Active Ahmte Carbajal MD Active METOPROLOL TARTRATE 50 MG TAB 1 po bid METOPROLOL TARTRATE 51207683961 No Longer Active Ahmet Carbajal MD Active ABILIFY 15 MG ORAL TABS 1 tab daily ARIPIPRAZOLE 67153405691 No Longer Active Ahmet Carbajal MD Active PROZAC 20 MG ORAL CAPS 1 tab daily FLUOXETINE HCL 31376074898 No Longer Active Ahmet Carbajal MD Active AMBIEN 5 MG ORAL TABS 1 tab at bedtime ZOLPIDEM TARTRATE 07542106028 No Longer Active Ahmet Carbajal MD Active PREDNISONE 20 MG TAB 2 tabs daily for 4 days, 1 tab daily for 4 days, 1/2 tab daily for 4 days PREDNISONE 04919357879 No Longer Active Ahmet Carbajal MD Active KEFLEX 500 MG CAP 1 po TID x 10 days CEPHALEXIN 35079789540 No Longer Active Vishal Hui MD Active SAPHRIS 5 MG SUBL 1 po bid ASENAPINE MALEATE 45536513401 No Longer Active Jillina Fralebron MANAGER CORPORATE Active LATUDA 80 MG TABS Take one by mouth daily LURASIDONE HCL 93531673093 No Longer Active Jillina Frazell MANAGER CORPORATE Active AMLODIPINE BESYLATE 5 MG TABS 1 tablet by mouth daily AMLODIPINE BESYLATE 18095170760 No Longer Active Jillina Fradwightl MANAGER CORPORATE Active AMITRIPTYLINE HCL 100 MG TAB one at hs AMITRIPTYLINE HCL 66466289098 No Longer Active Vishal Hui MD Active TRAZODONE HCL 100 MG TAB take 1 at bedtime TRAZODONE HCL 38910241773 No Longer Active Vishal Hui MD Active VYVANSE 40 MG CAPS 1 daily, LISDEXAMFETAMINE DIMESYLATE 43600240136 No Longer Active Vishal Hui MD Active IBUPROFEN 600 MG TAB 1 po TID PRN IBUPROFEN 77817245491 No Longer Active Vishal Hui MD Active PROZAC 20 MG CAP Take one by mouth daily FLUOXETINE HCL 53131996092 No Longer Active Vishal Hui MD Active ZOFRAN 4 MG TABS 1 po q6hr PRN Nausea ONDANSETRON HCL Active Vishal Hui MD Active BACTRIM DS 800-160 MG TABS 1 pill by mouth twice daily SULFAMETHOXAZOLE-TRIMETHOPRIM 47677343215 No Longer Active Sahara Rodriguez MD PhD Active DIFLUCAN 150 MG TAB 1 tablet by mouth daily FLUCONAZOLE 56312355521 No Longer Active Vishal Hui MD Active TIZANIDINE HCL 4 MG TABS 1 po q6hr PRN Muscle Spasm/Back Pain TIZANIDINE HCL 79648282295 Active Vishal Hui MD Active CLINDAMYCIN HCL 150 MG CAPS 1 four times a day CLINDAMYCIN HCL 07025411114 No Longer Active Neeraj Collins MD Active KEFLEX 500 MG ORAL CAPS 1 cap QID by mouth CEPHALEXIN 06033731389 No Longer Active Neeraj Collins MD Active DIFLUCAN 150 MG TABS 1 pill every other day x 2 doses FLUCONAZOLE 43454651291 No Longer Active Sahara Rodriguez MD PhD Active MELATONIN 3 MG CAPS 2 po q hs MELATONIN 81106507219 No Longer Active Sahara Rodriguez MD PhD Active MULTIVITAMINS CAPS Take one by mouth daily MULTIPLE VITAMIN 27115950318 No Longer Active Sahara Rodriguez MD PhD Active BACTRIM DS 800-160 MG TAB 1 tab by mouth twice daily TRIMETHOPRIM-SULFAMETHOXAZOLE 12535484094 No Longer Active Sahara Rodriguez MD PhD Active [facility] PROBIOTIC ORAL CHEW 2 daily po PROBIOTIC PRODUCT 98030641109 No Longer Active Sahara Rodriguez MD PhD Active BACTRIM DS 800-160 MG TABS 1 po BID x 7 days SULFAMETHOXAZOLE-TRIMETHOPRIM 10116923969 No Longer Active Vishal Hui MD Active CHANTIX STARTING MONTH EARNEST 0.5 MG X 11 & 1 MG X 42 TABS 0.5mg daily for 3 days , then 0.5mg BID for 4 days, then 1mg BID VARENICLINE TARTRATE 44353317446 No Longer Active TAMARA Gray Active VERAPAMIL HCL CR 120 MG TAB CR 1 po bid VERAPAMIL HCL 97081200597 No Longer Active Vishal Hui MD Active METOPROLOL SUCCINATE 50 MG TB24 1 tablet by mouth daily METOPROLOL SUCCINATE 20029698256 No Longer Active Vishal Hui MD Active SAPHRIS 10 MG SUBL 1 tab po bid ASENAPINE MALEATE 75833494465 No Longer Active Vishal Hui MD Active LISINOPRIL 20 MG TABS 1 tab po qd LISINOPRIL 24572992567 No Longer Active Vishal Hui MD Active LATUDA 20 MG TABS Take one by mouth daily LURASIDONE HCL 10046163199 No Longer Active Vishal Hui MD Active TRAZODONE HCL 50 MG TABS 1/2 tab po qd prn for anxiety TRAZODONE HCL 92223006933 No Longer Active Vishal Hui MD Active OMEPRAZOLE 20 MG TBEC 1 po q a.m. 30min prior to first food intake OMEPRAZOLE 31980492519 Active Vishal Hui MD Active RANITIDINE HCL 150 MG CAPS 1 twice a day RANITIDINE HCL 24399166661 Active Jioral Martínez APRN Active LINZESS 290 MCG CAPS Take one by mouth daily LINACLOTIDE 52194902659 No Longer Active Vishal Hui MD Active SAPHRIS 5 MG SUBL 1 tab po qd ASENAPINE MALEATE 13974130402 No Longer Active Vishal Hui MD Active ZALEPLON 10 MG CAPS 1 cap po every other night ZALEPLON 03654421922 No Longer Active Vishal Hui MD Active LYRICA 50 MG CAPS 1 tab po TID PREGABALIN 99787336938 No Longer Active Vishal Hui MD Active LORATADINE 10 MG TABS 1 tab po qd LORATADINE 51192514037 No Longer Active Vishal Hui MD Active VERAPAMIL HCL ER 180 MG CR-TABS 1 tab po bid VERAPAMIL HCL 15903350028 No Longer Active Vishal Hui MD Active MIRALAX POWD 1 capfull once daily POLYETHYLENE GLYCOL 3350 96088669198 No Longer Active Vishal Hui MD Active PREDNISONE 20 MG TABS 1 tab po qd PREDNISONE 89948233928 No Longer Active Renzo Thonrton DO Active LEVOFLOXACIN 500 MG TABS 1 tab po qd LEVOFLOXACIN 48782543501 No Longer Active Renzo Thornton DO Active BUSPIRONE HCL 15 MG TABS 1 tab po TID BUSPIRONE HCL 68782013673 No Longer Active Renzo Thornton DO Active BENZTROPINE MESYLATE 1 MG TABS 1 tab po qd BENZTROPINE MESYLATE 81938288589 No Longer Active Renzo Thornton DO Active ATENOLOL 25 MG TABS 1 tab po qd ATENOLOL 60910442480 No Longer Active Renzo Thornton DO Active ESCITALOPRAM OXALATE 20 MG TABS 1 tab po qd ESCITALOPRAM OXALATE 57712616354 No Longer Active Renzo Thornton DO Active ADVAIR DISKUS 250-50 MCG/DOSE AEPB 1 puff BID FLUTICASONE-SALMETEROL 06384267026 No Longer Active Renzo Thornton DO Active PREDNISONE 20 MG TAB 2 tabs daily for 3 days, 1 tab daily for 3 days, 1/2 tab daily for 2 days PREDNISONE 61969207642 No Longer Active Vishal Hui MD Active CEFDINIR 300 MG CAPS by mouth twice a day CEFDINIR 60366461996 No Longer Active Vishal Hui MD Active LANSOPRAZOLE 30 MG CPDR 1 cap po qd LANSOPRAZOLE 76598943401 No Longer Active Vishal Hui MD Active BACLOFEN 20 MG TABS 1 tab po tid BACLOFEN 99829020155 No Longer Active Vishal Hui MD Active ADVAIR DISKUS 250-50 MCG/DOSE AEPB 1 puff BID ADVAIR DISKUS 250-50 MCG/DOSE AEPB FLUTICASONE-SALMETEROL Inactive ESCITALOPRAM OXALATE 20 MG TABS 1 tab po qd ESCITALOPRAM OXALATE 20 MG TABS 462497 ESCITALOPRAM OXALATE Inactive ATENOLOL 25 MG TABS 1 tab po qd ATENOLOL 25 MG TABS 706385 ATENOLOL Inactive BENZTROPINE MESYLATE 1 MG TABS 1 tab po qd BENZTROPINE MESYLATE 1 MG TABS 220021 BENZTROPINE MESYLATE Inactive BUSPIRONE HCL 15 MG TABS 1 tab po TID BUSPIRONE HCL 15 MG TABS 769053 BUSPIRONE HCL Inactive LEVOFLOXACIN 500 MG TABS 1 tab po qd LEVOFLOXACIN 500 MG TABS 486263 LEVOFLOXACIN Inactive PREDNISONE 20 MG TABS 1 tab po qd PREDNISONE 20 MG TABS 430285 PREDNISONE Inactive MIRALAX POWD 1 capfull once daily MIRALAX POWD 352059 POLYETHYLENE GLYCOL 3350 Inactive VERAPAMIL HCL ER 180 MG CR-TABS 1 tab po bid VERAPAMIL HCL ER 180 MG CR-TABS VERAPAMIL HCL Inactive LORATADINE 10 MG TABS 1 tab po qd LORATADINE 10 MG TABS 904161 LORATADINE Inactive LYRICA 50 MG CAPS 1 tab po TID LYRICA 50 MG CAPS PREGABALIN Inactive ZALEPLON 10 MG CAPS 1 cap po every other night ZALEPLON 10 MG CAPS 930817 ZALEPLON Inactive SAPHRIS 5 MG SUBL 1 tab po qd SAPHRIS 5 MG SUBL ASENAPINE MALEATE Inactive TRAZODONE HCL 50 MG TABS 1/2 tab po qd prn for anxiety TRAZODONE HCL 50 MG TABS 821589 TRAZODONE HCL Inactive LATUDA 20 MG TABS Take one by mouth daily LATUDA 20 MG TABS LURASIDONE HCL Inactive LISINOPRIL 20 MG TABS 1 tab po qd LISINOPRIL 20 MG TABS 985813 LISINOPRIL Inactive SAPHRIS 10 MG SUBL 1 [...] twice daily BACTRIM DS 800-160 MG TAB 764231 TRIMETHOPRIM-SULFAMETHOXAZOLE Inactive MULTIVITAMINS CAPS Take one by mouth daily MULTIVITAMINS CAPS MULTIPLE VITAMIN Inactive MELATONIN 3 MG CAPS 2 po q hs MELATONIN 3 MG CAPS 650409 MELATONIN Inactive KEFLEX 500 MG ORAL CAPS 1 cap QID by mouth KEFLEX 500 MG ORAL CAPS 347477 CEPHALEXIN Inactive CLINDAMYCIN HCL 150 MG CAPS 1 four times a day CLINDAMYCIN HCL 150 MG CAPS 655662 CLINDAMYCIN HCL Inactive DIFLUCAN 150 MG TAB 1 tablet by mouth daily DIFLUCAN 150 MG TAB 576696 FLUCONAZOLE Inactive PROZAC 20 MG CAP Take one by mouth daily PROZAC 20 MG CAP 014044 FLUOXETINE HCL Inactive IBUPROFEN 600 MG TAB 1 po TID PRN IBUPROFEN 600 MG TAB 609374 IBUPROFEN Inactive VYVANSE 40 MG CAPS 1 daily, VYVANSE 40 MG CAPS LISDEXAMFETAMINE DIMESYLATE Inactive TRAZODONE HCL 100 MG TAB take 1 at bedtime TRAZODONE HCL 100 MG TAB 431936 TRAZODONE HCL Inactive AMITRIPTYLINE HCL 100 MG TAB one at hs AMITRIPTYLINE HCL 100 MG TAB 118913 AMITRIPTYLINE HCL Inactive AMLODIPINE BESYLATE 5 MG TABS 1 tablet by mouth daily AMLODIPINE BESYLATE 5 MG TABS 644062 AMLODIPINE BESYLATE Inactive LATUDA 80 MG TABS Take one by mouth daily LATUDA 80 MG TABS LURASIDONE HCL Inactive SAPHRIS 5 MG SUBL 1 po bid SAPHRIS 5 MG SUBL ASENAPINE MALEATE Inactive PREDNISONE 20 MG TAB 2 tabs daily for 4 days, 1 tab daily for 4 days, 1/2 tab daily for 4 days PREDNISONE 20 MG TAB 500189 PREDNISONE Inactive AMBIEN 5 MG ORAL TABS 1 tab at bedtime AMBIEN 5 MG ORAL TABS 393189 ZOLPIDEM TARTRATE Inactive PROZAC 20 MG ORAL CAPS 1 tab daily PROZAC 20 MG ORAL CAPS 725567 FLUOXETINE HCL Inactive ABILIFY 15 MG ORAL TABS 1 tab daily ABILIFY 15 MG ORAL TABS 472039 ARIPIPRAZOLE Inactive METOPROLOL TARTRATE 50 MG TAB 1 po bid METOPROLOL TARTRATE 50 MG TAB 507889 METOPROLOL TARTRATE Inactive TRAMADOL HCL 50 MG TABS 1-2 po TID PRN Pain TRAMADOL HCL 50 MG TABS 709066 TRAMADOL HCL Inactive PIROXICAM 20 MG CAPS 1 cap po qd PRN Pain PIROXICAM 20 MG CAPS 291371 PIROXICAM Inactive MINIPRESS 2 MG CAPS 4 cap po at night MINIPRESS 2 MG CAPS 871660 PRAZOSIN HCL Inactive MIRALAX PACK 1 po qd PRN Constipation MIRALAX PACK 780217 POLYETHYLENE GLYCOL 3350 Inactive METOPROLOL TARTRATE 25 MG ORAL TABS 1/2 tablet twice daily for heart rate and blood pressure METOPROLOL TARTRATE 25 MG ORAL TABS 163762 METOPROLOL TARTRATE Inactive VALIUM 5 MG TAB Take 1-2 tablets daily VALIUM 5 MG TAB 085537 DIAZEPAM Inactive FLAGYL 500 MG TAB 1 tablet by mouth bid FLAGYL 500 MG TAB 120285 METRONIDAZOLE Inactive DICLOFENAC POTASSIUM TABS Take 1 tablet twice a day (pt. is not sure of the dose.) DICLOFENAC POTASSIUM TABS DICLOFENAC POTASSIUM TABS Inactive ZITHROMAX Z-EARNEST 250 MG TABS 2 today and then 1 daily for 4 days ZITHROMAX Z-EARNEST 250 MG TABS 0426986 AZITHROMYCIN Inactive PREDNISONE 20 MG TABS 2 daily for 5 days then 1 daily for 5 days PREDNISONE 20 MG TABS 942363 PREDNISONE Inactive PROAIR HFA 108 (90 BASE) MCG/ACT AERS 2 puffs four times a day as needed 2015 PROAIR HFA 108 (90 BASE) MCG/ACT AERS ALBUTEROL SULFATE Inactive HYDROCODONE-ACETAMINOPHEN 5-325 MG TABS 1 to 2 four times a day as needed for pain use until can be seen by specialist HYDROCODONE- ACETAMINOPHEN 5-325 MG TABS 999297 HYDROCODONE-ACETAMINOPHEN Inactive TESSALON PERLES 100 MG CAP 1 to 2 tablets by mouth 3 times daily as needed for cough TESSALON PERLES 100 MG CAP 626582 BENZONATATE Inactive CHANTIX STARTING MONTH EARNEST 0.5 [...] Pain 2015 DICLOFENAC SODIUM 50 MG BANNER 094017 DICLOFENAC SODIUM Inactive TOPAMAX 50 MG ORAL TABS 1 tab twice daily TOPAMAX 50 MG ORAL TABS 581984 TOPIRAMATE Inactive VIIBRYD 10 MG ORAL TABS Take 1 tablet once a day VIIBRYD 10 MG ORAL TABS VILAZODONE HCL Inactive LEVOFLOXACIN 500 MG ORAL TABS po daily LEVOFLOXACIN 500 MG ORAL TABS 283229 LEVOFLOXACIN Inactive METHYLPREDNISOLONE 4 MG ORAL TABS po daily METHYLPREDNISOLONE 4 MG ORAL TABS 882083 METHYLPREDNISOLONE Inactive OXYCODONE HCL ER 10 MG ORAL T12A 1/2 tab by mouth every 4 hours prn OXYCODONE HCL ER 10 MG ORAL T12A OXYCODONE HCL Inactive FLAGYL 500 MG TAB 1 tablet by mouth bid FLAGYL 500 MG TAB 156881 METRONIDAZOLE Inactive MONISTAT 7 COMBO PACK WOODROW 100 & 2 MG-% (9GM) VAG KIT 1 applicatorful per vagina q pm x 7 MONISTAT 7 COMBO PACK WOODROW 100 & 2 MG-% (9GM) VAG KIT MICONAZOLE NITRATE Inactive BACTRIM DS 800-160 MG TABS 1 twice a day BACTRIM DS 800-160 MG TABS 541074 SULFAMETHOXAZOLE-TRIMETHOPRIM Inactive TRAMADOL HCL 50 MG TABS 1/2-1 tab TID PRN TRAMADOL HCL 50 MG TABS 727424 TRAMADOL HCL Inactive ABILIFY MAINTENA 400 MG IM SUSR 400mg injection every 26 days ABILIFY MAINTENA 400 MG IM SUSR ARIPIPRAZOLE Inactive KLONOPIN 1 MG ORAL TABS 1 tab po TID KLONOPIN 1 MG ORAL TABS 970762 CLONAZEPAM Inactive ADVAIR DISKUS 250-50 MCG/DOSE INH AEPB 1 puff twice a day for asthma ADVAIR DISKUS 250-50 MCG/DOSE INH AEPB FLUTICASONE- SALMETEROL Inactive BENADRYL 25 MG CAP 4 po at bedtime for insomnia BENADRYL 25 MG CAP DIPHENHYDRAMINE HCL Inactive CEFDINIR 300 MG CAPS by mouth twice a day CEFDINIR 300 MG CAPS 339918 CEFDINIR Inactive PREDNISONE 20 MG TAB 2 tabs daily for 3 days, 1 tab daily for 3 days, 1/2 tab daily for 2 days PREDNISONE 20 MG TAB 353906 PREDNISONE Inactive BACTRIM DS 800-160 MG TABS 1 po BID x 7 days BACTRIM DS 800-160 MG TABS 19820521 SULFAMETHOXAZOLE-TRIMETHOPRIM Inactive DIFLUCAN 150 MG TABS 1 pill every other day x 2 doses DIFLUCAN 150 MG TABS 030754 FLUCONAZOLE Inactive BACTRIM DS 800-160 MG TABS 1 pill by mouth twice daily BACTRIM DS 800-160 MG TABS 980801 SULFAMETHOXAZOLE-TRIMETHOPRIM Inactive KEFLEX 500 MG CAP 1 po TID x 10 days KEFLEX 500 MG CAP 183900 CEPHALEXIN Inactive Advance Directives Directive Description Start [...] 369 10^3/MM^3 10*3/mm3 142-424 Lab Report: Chlamydia/GC [id number] - Lab chlamydia DNA probe NOT DETECTED NOT DETECTED Lab Report: Chlamydia/GC [id number] - Microbiology Neisseria gonorrhoeae DNA probe NOT DETECTED NOT DETECTED Lab Report: Comp. Metabolic Panel - Chemistry sodium, serum 139 mmol/L 146-505 5835/01/11 carbon dioxide, venous blood 26.6 mmol/L 21.0-32.0 potassium, serum 4.1 mmol/L 3.5-5.2 chloride, serum 100 mmol/L 98-107 blood glucose 86 mg/dL 65-110 urea nitrogen, blood 16 mg/dL 7-18 creatinine, serum 1.00 mg/dL 0.55-1.30 alanine aminotransferase (SGPT), serum 48 U/L -78 aspartate aminotransferase (SGOT), serum 17 U/L 15-37 calcium, serum 9.1 mg/dL 8.5-10.1 bilirubin, serum, total 0.40 mg/dL 0.00-1.00 sodium, serum 142 mmol/L 373-934 5154/06/08 carbon dioxide, venous blood 27.6 mmol/L 21.0-32.0 potassium, serum 4.0 mmol/L 3.5-5.2 chloride, serum 105 mmol/L 98-107 blood glucose 95 mg/dL 65-110 urea nitrogen, blood 8 mg/dL 7-18 creatinine, serum 0.75 mg/dL 0.55-1.30 alanine aminotransferase (SGPT), serum 49 U/L -78 aspartate aminotransferase (SGOT), serum 28 U/L 15-37 calcium, serum 9.4 mg/dL 8.5-10.1 bilirubin, serum, total 0.30 mg/dL 0.00-1.00 sodium, serum 140 mmol/L 554-398 5289/08/08 carbon dioxide, venous blood 33.7 mmol/L 21.0-32.0 [...] mg/dL Encounters Code Encounter Date Provider Facility CPT-96473 Level 3 Est. Patient 10:40:11 ATM SERVICER Ahmet Carbajal MD [facility] CPT-06071 Level 3 Est. Patient 15:07:06 ATM SERVICER Neeraj Collins MD [facility] CPT-08148 Level 4 Est. Patient 14:45:00 ATM SERVICER Ahmet Carbajal MD [facility] CPT-01830 Level 3 Est. Patient 13:59:59 CDT Luigi Martínez [facility] [place] CPT-70997 Level 3 Est. Patient 18:18:53 CDT Neeraj Collins MD [facility] CPT-94299 Level 3 Est. Patient 15:50:44 CDT Vishal Hui MD [facility] CPT-68637 Level 3 Est. Patient 11:36:17 CDT Ahmet Carbajal MD [facility] CPT-00919 Level 3 Est. Patient 13:29:16 CDT Vishal Hui MD [facility] CPT-34772 Level 3 Est. Patient 14:27:52 CDT Neeraj Collins MD [facility] CPT-79266 Level 3 Est. Patient 08:56:03 CDT Luigi Martínez [facility] [place] CPT-96134 Level 4 Est. Patient 12:11:48 CDT Fabiola Johnson [facility] [place] CPT-87390 Level 3 New Patient 16:53:37 CDT Albert Caldera MD [facility] CPT-47353 Level 3 Est. Patient 11:25:49 CDT Renzo Tohrnton DO [facility] CPT-25070 Level 3 Est. Patient 15:22:01 CDT Ahmet Carbajal MD [facility] CPT-38800 Level 4 Est. Patient 09:00:51 ATM SERVICER Vishal Hui MD [facility] CPT-56317 Level 3 Est. Patient 11:37:33 ATM SERVICER Vishal Hui MD [facility] CPT-18684 Level 3 Est. Patient 08:41:09 ATM SERVICER Vishal Hui MD [facility] CPT-79717 Level 4 Est. Patient 10:19:35 ATM SERVICER Vishal Hui MD [facility] CPT-63401 Level 3 Est. Patient 13:35:45 CDT Vishal Hui MD [facility] CPT-71892 Level 4 Est. Patient 10:08:37 CDT Vishal Hui MD [facility] CPT-55564 Level 3 Est. Patient 11:22:10 CDT Vishal Hui MD [facility] CPT-73287 Level 3 Est. Patient 11:03:32 CDT Sahara Rodriguez MD [facility] CPT-56256 Level 3 Est. Patient 09:41:35 CDT Vishal Hui MD [facility] CPT-94661 Level 3 Est. Patient 12:00:41 CDT Neeraj Collins MD [facility] CPT-92885 Level 3 Est. Patient 09:16:24 CDT Vishal Hui MD [facility] CPT-04959 Level 4 Est. Patient 13:59:09 CDT Neeraj Collins MD [facility] CPT-21920 Level 3 Est. Patient 15:19:43 CDT Renzo Thornton DO [facility] CPT-14573 Level 3 Est. Patient 18:10:26 CDT Sahara Rodriguez MD [facility]-08572 Level 3 Est. Patient 14:49:50 CDT Vishal Hui MD [facility] CPT-50225 Level 4 Est. Patient 18:41:46 CDT Neeraj Collins MD [facility] CPT-84319 Level 4 Est. Patient 09:18:38 ATM SERVICER Vishal Hui MD [facility] CPT-40961 Level 3 Est. Patient 14:43:55 ATM SERVICER Vishal Hui MD [facility] CPT-90494 Level 3 Est. Patient 15:26:33 ATM SERVICER Sahara Rodriguez MD PhD [facility] CPT-48351 Level 3 Est. Patient 10:32:14 ATM SERVICER Vishal Hui MD [facility] CPT-19255 Level 3 Est. Patient 15:12:52 ATM SERVICER Vishal Hui MD [facility] CPT-05158 Level 4 Est. Patient 09:19:27 CDT Vishal Hui MD [facility] CPT-94726 Level 3 Est. Patient 15:53:[address] [facility] CPT-09085 Level 3 Est. Patient 15:50:[address] [facility] CPT-53402 Level 3 Est. Patient 16:55:24 CDT Vishal Hui MD [facility] Procedures Code Procedure Name Date Entry Date Standard Description CPT-G0439 [facility] Annual Wellness Exam 09:30:58 ATM SERVICER CPT-83403 TSH - LAB USE ONLY 08:50:26 ATM SERVICER CPT-36941 CBC - LAB USE ONLY 08:50:26 ATM SERVICER CPT-83292 Venipuncture Draw Fee 08:50:26 ATM SERVICER CPT-79181 Abx/Therapy Injection 17:34:30 ATM SERVICER CPT-88246 Nexplanon Removal with Reinsertion 14:09:32 CDT CPT-J7307 Nexplanon (Implant) 14:09:32 CDT CPT-OV Office Visit 14:09:32 CDT CPT-04196 UA w micro - LAB USE ONLY 16:21:13 CDT CPT-31677 Wet Mount - LAB USE ONLY 16:21:13 CDT CPT-93584 First Vx - Ix admin for Medicare patients 14:37:47 CDT CPT-02425 Fluzone Preservative Free Intramuscular Suspension 14:37 :47 CDT CPT-54374 Abx/Therapy Injection 13:54:22 CDT CPT-32110 Abx/Therapy Injection 08:47:09 CDT CPT-88375 Abx/Therapy Injection 13:29:56 CDT CPT-07417 Abx/Therapy Injection 08:36:16 CDT CPT-49438 Wet Mount - LAB USE ONLY 17:44:58 CDT CPT-78945 UA w micro - LAB USE ONLY 17:44:58 CDT CPT-35406 CMP - LAB USE ONLY 17:44:58 CDT CPT-97283 Venipuncture Draw Fee 17:44:58 CDT CPT-52197 Cervical Min 4V - XRAY USE ONLY 09:01:40 CDT CPT-76854 Chest 2V Frontal and Lat - XRAY USE ONLY 11:06:31 CDT CPT-33096 EKG Trac and Interp - XRAY USE ONLY 11:31:43 CDT 08/26 CPT-J3420 Vitamin B12 1000mcg (Cyanocobalamin) 08:10:26 ATM SERVICER 04/12 CPT-13030 Abx/Therapy Injection 08:10:26 ATM SERVICER CPT-G0438 Initial Annual Wellness Exam 19:01:01 ATM SERVICER CPT-J3420 Vitamin B12 1000mcg (Cyanocobalamin) 16:57:46 CDT 08/14 CPT-67009 Recombivax HB Injection Suspension 5 MCG/0.5ML 08:37:50 ATM SERVICER CPT-18890 Immunization Single Admin 08:37:50 ATM SERVICER CPT-J3420 Vitamin B12 1000mcg (Cyanocobalamin) 08:32:16 ATM SERVICER 03/11 CPT-17422 Abx/Therapy Injection 08:32:16 ATM SERVICER CPT-03134 Chest 2V Frontal and Lat 11:46:38 ATM SERVICER CPT-69273 Venipuncture Draw Fee 09:12:45 ATM SERVICER CPT-J3420 Vitamin B12 1000mcg (Cyanocobalamin) 08:50:15 ATM SERVICER 02/08 CPT-23909 Abx/Therapy Injection 08:50:15 ATM SERVICER CPT-Cryo Cryotherapy 10:19:35 ATM SERVICER CPT-000 Give Appropriate Flu Vaccine 09:22:16 CDT CPT-J3420 Vitamin B12 1000mcg (Cyanocobalamin) 19:08:57 CDT 01/11 CPT-02636 Abx/Therapy Injection 19:08:57 CDT CPT-J3420 Vitamin B12 1000mcg (Cyanocobalamin) 08:19:08 CDT 12/11 CPT-05235 Abx/Therapy Injection 08:19:08 CDT CPT-J3420 Vitamin B12 1000mcg (Cyanocobalamin) 14:48:00 CDT 11/09 CPT-34398 Abx/Therapy Injection 14:47:59 CDT CPT-J3420 Vitamin B12 1000mcg (Cyanocobalamin) 08:34:04 CDT 10/09 CPT-82758 Abx/Therapy Injection 08:34:04 CDT CPT-J3420 Vitamin B12 1000mcg (Cyanocobalamin) 09:18:52 CDT 09/11 CPT-83992 Abx/Therapy Injection 09:18:52 CDT CPT-J3420 Vitamin B12 1000mcg (Cyanocobalamin) 08:35:44 CDT 09/04 CPT-25846 Abx/Therapy Injection 08:35:44 CDT CPT-42115 Immunization Single Admin 11:07:16 CDT CPT-58607 Hepatitis B adult IM 11:07:16 CDT CPT-J3420 Vitamin B12 1000mcg (Cyanocobalamin) 11:00:49 CDT 08/28 CPT-J1040 Depo Medrol 80 mg (Methyl Prednisolone Acetate) 11:00: 49 CDT CPT-14624 Abx/Therapy Injection 11:00:49 CDT CPT-J1040 Depo Medrol 80 mg (Methyl Prednisolone Acetate) 09:16: 23 CDT CPT-J3420 Vitamin B12 1000mcg (Cyanocobalamin) 08:27:05 CDT 08/20 CPT-19840 Abx/Therapy Injection 08:27:05 CDT CPT-44748 Recombivax HB Injection Suspension 5 MCG/0.5ML 10:00:41 CDT CPT-50210 Administration single or combination vaccine inc oral 10 :00:41 CDT CPT-98523 Sono transvag pelvis non OB uterus ovaries cervix 16:36: 57 CDT CPT-04303 LS spine comp w obliq 09:50:55 ATM SERVICER CPT-22042 Abd compl w upright 09:50:55 ATM SERVICER CPT-J1100 Decadron 4mg (Dexamethasone) 15:51:24 ATM SERVICER CPT-J1030 Depo Medrol 40 mg (Methyl Prednisolone Acetate) 15:51: 24 ATM SERVICER CPT-75638 Abx/Therapy Injection 15:51:24 ATM SERVICER CPT-J1100 Decadron 4mg (Dexamethasone) 15:26:33 ATM SERVICER CPT-J1030 Depo Medrol 40 mg (Methyl Prednisolone Acetate) 15:26: 33 ATM SERVICER CPT-88559 Sono retroperitoneal complete kidneys and bladder 17:15: 30 CDT CPT-25531 Abd compl w upright 16:09:25 CDT CPT-J1100 Decadron 8mg (Dexamethasone) 17:07:57 CDT CPT-30774 Abx/Therapy Injection 17:07:57 CDT CPT-J1100 Decadron 8mg (Dexamethasone) 16:55:24 CDT CPT-41938 Chest 2V Frontal and Lat 16:32:44 CDT
--- OUTSIDE RECORDS SUMMARY | 2016-11-04 19:42 | XMS REPORT | Clinical Summary ---
Author Author Admin, [place] Organization [facility] Address Unknown Phone Unavailable Allergies, Adverse Reactions, [...] Shortness of breath 786.05 Active Fabiola Johnson REPORT ANALYST Shortness of breath Nocturnal hypoxia 799.02 Active Fabiola Johnson REPORT ANALYST Hypoxemia Neck pain 723.1 Active Luigi Martínez REPORT ANALYST Cervicalgia Anxiety Disorder ICD-300.00 Inactive Vishal Hui [...] each nostril daily before bed. FLUTICASONE PROPIONATE 35896028050 Active Fabiola Johnson APRN Active VERAPAMIL HCL ER 120 MG ORAL CR-TABS 1 tab po daily for blood pressure 09/27 VERAPAMIL HCL 46805780722 Active Fabiola Johnson APRN Active ADZENYS XR-ODT 6.3 MG ORAL TBED 1 tab po daily for ADHD AMPHETAMINE 77182788406 Active Fabiola Johnson APRN Active BENADRYL 25 MG CAP 4 po at bedtime for insomnia DIPHENHYDRAMINE HCL 84384056682 Active Fabiola Johnson APRN Active KLONOPIN 1 MG ORAL TABS 1 tab po TID CLONAZEPAM 11691868423 Active Fabiola Johnson APRN Active VALIUM 5 MG TAB Take 1-2 tablets daily DIAZEPAM 83816371083 No Longer Active Fabiola Johnson APRN Active METOPROLOL TARTRATE 25 MG ORAL TABS 1/2 tablet twice daily for heart rate and blood pressure METOPROLOL TARTRATE 51484297307 No Longer Active Fabiola Johnson APRN Active MIRALAX ORAL POWD 17GMS DAILY IN WATER POLYETHYLENE GLYCOL 3350 82423728780 Active Vishal Hui MD Active VIIBRYD 10 MG ORAL TABS Take 1 tablet once a day VILAZODONE HCL 03826593721 Active Ahmet Carbajal MD Active DICLOFENAC POTASSIUM TABS Take 1 tablet twice a day (pt. is not sure of the dose.) DICLOFENAC POTASSIUM TABS 31733520779 Active Ahmet Carbajal MD Active MIRALAX PACK 1 po qd PRN Constipation POLYETHYLENE GLYCOL 3350 16099029858 No Longer Active Ahmet Carbajal MD Active MINIPRESS 2 MG CAPS 4 cap po at night PRAZOSIN HCL 52935938212 No Longer Active Ahemt Carbajal MD Active PIROXICAM 20 MG CAPS 1 cap po qd PRN Pain PIROXICAM 14856929763 No Longer Active Ahmet Carbajal MD Active TRAMADOL HCL 50 MG TABS 1-2 po TID PRN Pain TRAMADOL HCL 34521954529 No Longer Active Ahmet Carbajal MD Active METOPROLOL TARTRATE 50 MG TAB 1 po bid METOPROLOL TARTRATE 39789867957 No Longer Active Ahmet Carbajal MD Active ABILIFY 15 MG ORAL TABS 1 tab daily ARIPIPRAZOLE 59639836404 No Longer Active Ahmet Carbajal MD Active PROZAC 20 MG ORAL CAPS 1 tab daily FLUOXETINE HCL 45020041381 No Longer Active Ahmet Carbajal MD Active AMBIEN 5 MG ORAL TABS 1 tab at bedtime ZOLPIDEM TARTRATE 94957634369 No Longer Active Ahmet Carbajal MD Active PREDNISONE 20 MG TAB 2 tabs daily for 4 days, 1 tab daily for 4 days, 1/2 tab daily for 4 days PREDNISONE 88563039543 No Longer Active Ahmet Carbajal MD Active KEFLEX 500 MG CAP 1 po TID x 10 days CEPHALEXIN 91993143233 No Longer Active Vishal Hui MD Active ABILIFY MAINTENA 400 MG IM SUSR Injection once per month ARIPIPRAZOLE 84961456831 Active Juliet Kimbrough APRN Active IMITREX 50 MG ORAL TABS 1/2 tab every 6 hours prn SUMATRIPTAN SUCCINATE 55417426955 Active Pacolljanee Martínez APRN Active TOPAMAX 50 MG ORAL TABS 1 tab twice daily TOPIRAMATE 80504524125 Active Vishal Hui MD Active SAPHRIS 5 MG SUBL 1 po bid ASENAPINE MALEATE 40899410067 No Longer Active Luigi Martínez APRN Active LATUDA 80 MG TABS Take one by mouth daily LURASIDONE HCL 51436998641 No Longer Active Luigi Martínez APRN Active AMLODIPINE BESYLATE 5 MG TABS 1 tablet by mouth daily AMLODIPINE BESYLATE 22548038231 No Longer Active Luigi Martínez APRN Active AMITRIPTYLINE HCL 100 MG TAB one at hs AMITRIPTYLINE HCL 70436997728 No Longer Active Vishal Hui MD Active TRAZODONE HCL 100 MG TAB take 1 at bedtime TRAZODONE HCL 47144605453 No Longer Active Vishal Hui MD Active VYVANSE 40 MG CAPS 1 daily, LISDEXAMFETAMINE DIMESYLATE 08729810234 No Longer Active Vishal Hui MD Active IBUPROFEN 600 MG TAB 1 po TID PRN IBUPROFEN 45471218688 No Longer Active Vishal Hui MD Active PROZAC 20 MG CAP Take one by mouth daily FLUOXETINE HCL 62604907874 No Longer Active Vishal Hui MD Active ZOFRAN 4 MG TABS 1 po q6hr PRN Nausea ONDANSETRON HCL Active Vishal Hui MD Active BACTRIM DS 800-160 MG TABS 1 pill by mouth twice daily SULFAMETHOXAZOLE-TRIMETHOPRIM 31996856089 No Longer Active Sahara Rodriguez MD PhD Active DIFLUCAN 150 MG TAB 1 tablet by mouth daily FLUCONAZOLE 54152643258 No Longer Active Vishal Hui MD Active TIZANIDINE HCL 4 MG TABS 1 po q6hr PRN Muscle Spasm/Back Pain TIZANIDINE HCL 48414943363 Active Jioral Martínez APRN Active CLINDAMYCIN HCL 150 MG CAPS 1 four times a day CLINDAMYCIN HCL 64292935149 No Longer Active Neeraj Collins MD Active KEFLEX 500 MG ORAL CAPS 1 cap QID by mouth CEPHALEXIN 40968551759 No Longer Active Neeraj Collins MD Active DIFLUCAN 150 MG TABS 1 pill every other day x 2 doses FLUCONAZOLE 54539552210 No Longer Active Sahara Rodriguez MD PhD Active MELATONIN 3 MG CAPS 2 po q hs MELATONIN 16679840863 No Longer Active Sahara Rodriguez MD PhD Active MULTIVITAMINS CAPS Take one by mouth daily MULTIPLE VITAMIN 86778004697 No Longer Active Sahara Rodriguez MD PhD Active BACTRIM DS 800-160 MG TAB 1 tab by mouth twice daily TRIMETHOPRIM-SULFAMETHOXAZOLE 57242521616 No Longer Active Sahara Rodriguez MD PhD Active [facility] PROBIOTIC ORAL CHEW 2 daily po PROBIOTIC PRODUCT 37979888743 No Longer Active Sahara Rodriguez MD PhD Active BACTRIM DS 800-160 MG TABS 1 po BID x 7 days SULFAMETHOXAZOLE-TRIMETHOPRIM 69834166055 No Longer Active Vishal Hui MD Active CHANTIX STARTING MONTH EARNEST 0.5 MG X 11 & 1 MG X 42 TABS 0.5mg daily for 3 days , then 0.5mg BID for 4 days, then 1mg BID VARENICLINE TARTRATE 65688154084 No Longer Active TAMARA Gray Active VERAPAMIL HCL CR 120 MG TAB CR 1 po bid VERAPAMIL HCL 68703133809 No Longer Active Vishal Hui MD Active METOPROLOL SUCCINATE 50 MG TB24 1 tablet by mouth daily METOPROLOL SUCCINATE 12010670627 No Longer Active Vishal Hui MD Active SAPHRIS 10 MG SUBL 1 tab po bid ASENAPINE MALEATE 57839506052 No Longer Active Vishal Hui MD Active LISINOPRIL 20 MG TABS 1 tab po qd LISINOPRIL 05215521446 No Longer Active Vishal Hui MD Active LATUDA 20 MG TABS Take one by mouth daily LURASIDONE HCL 37937622296 No Longer Active Vishal Hui MD Active TRAZODONE HCL 50 MG TABS 1/2 tab po qd prn for anxiety TRAZODONE HCL 15291368786 No Longer Active Vishal Hui MD Active OMEPRAZOLE 20 MG TBEC 1 po q a.m. 30min prior to first food intake OMEPRAZOLE 47695731980 Active Vishal Hui MD Active RANITIDINE HCL 150 MG CAPS 1 twice a day RANITIDINE HCL 50956326471 Active Luigi Swensonlebron NORIEGA Active LINZESS 290 MCG CAPS Take one by mouth daily LINACLOTIDE 75028102600 No Longer Active Vishal Hui MD Active SAPHRIS 5 MG SUBL 1 tab po qd ASENAPINE MALEATE 58839239155 No Longer Active Vishal Hui MD Active ZALEPLON 10 MG CAPS 1 cap po every other night ZALEPLON 59667780636 No Longer Active Vishal Hui MD Active LYRICA 50 MG CAPS 1 tab po TID PREGABALIN 02707297701 No Longer Active Vishal Hui MD Active LORATADINE 10 MG TABS 1 tab po qd LORATADINE 65692543348 No Longer Active Vishal Hui MD Active VERAPAMIL HCL ER 180 MG CR-TABS 1 tab po bid VERAPAMIL HCL 03487269687 No Longer Active Vishal Hui MD Active MIRALAX POWD 1 capfull once daily POLYETHYLENE GLYCOL 3350 90148077240 No Longer Active Vishal Hui MD Active PREDNISONE 20 MG TABS 1 tab po qd PREDNISONE 06200080908 No Longer Active Renzo Thornton DO Active LEVOFLOXACIN 500 MG TABS 1 tab po qd LEVOFLOXACIN 65475639490 No Longer Active Renzo Thornton DO Active BUSPIRONE HCL 15 MG TABS 1 tab po TID BUSPIRONE HCL 35762743849 No Longer Active Renzo Thornton DO Active BENZTROPINE MESYLATE 1 MG TABS 1 tab po qd BENZTROPINE MESYLATE 91971725255 No Longer Active Renzo Thornton DO Active ATENOLOL 25 MG TABS 1 tab po qd ATENOLOL 11562714896 No Longer Active Renzo Thornton DO Active ESCITALOPRAM OXALATE 20 MG TABS 1 tab po qd ESCITALOPRAM OXALATE 20009564098 No Longer Active Renzo Thornton DO Active ADVAIR DISKUS 250-50 MCG/DOSE AEPB 1 puff BID FLUTICASONE-SALMETEROL 43810417277 No Longer Active Renzo Thornton DO Active PREDNISONE 20 MG TAB 2 tabs daily for 3 days, 1 tab daily for 3 days, 1/2 tab daily for 2 days PREDNISONE 99491401393 No Longer Active Vishal Hui MD Active CEFDINIR 300 MG CAPS by mouth twice a day CEFDINIR 20082901242 No Longer Active Vishal Hui MD Active LANSOPRAZOLE 30 MG CPDR 1 cap po qd LANSOPRAZOLE 63961181468 No Longer Active Vishal Hui MD Active BACLOFEN 20 MG TABS 1 tab po tid BACLOFEN 43469066976 No Longer Active Vishal Hui MD Active ADVAIR DISKUS 250-50 MCG/DOSE AEPB 1 puff BID ADVAIR DISKUS 250-50 MCG/DOSE AEPB FLUTICASONE-SALMETEROL Inactive ESCITALOPRAM OXALATE 20 MG TABS 1 tab po qd ESCITALOPRAM OXALATE 20 MG TABS 882951 ESCITALOPRAM OXALATE Inactive ATENOLOL 25 MG TABS 1 tab po qd ATENOLOL 25 MG TABS 254998 ATENOLOL Inactive BENZTROPINE MESYLATE 1 MG TABS 1 tab po qd BENZTROPINE MESYLATE 1 MG TABS 991714 BENZTROPINE MESYLATE Inactive BUSPIRONE HCL 15 MG TABS 1 tab po TID BUSPIRONE HCL 15 MG TABS 474473 BUSPIRONE HCL Inactive LEVOFLOXACIN 500 MG TABS 1 tab po qd LEVOFLOXACIN 500 MG TABS 139532 LEVOFLOXACIN Inactive PREDNISONE 20 MG TABS 1 tab po qd PREDNISONE 20 MG TABS 488666 PREDNISONE Inactive MIRALAX POWD 1 capfull once daily MIRALAX POWD 018951 POLYETHYLENE GLYCOL 3350 Inactive VERAPAMIL HCL ER 180 MG CR-TABS 1 tab po bid VERAPAMIL HCL ER 180 MG CR-TABS VERAPAMIL HCL Inactive LORATADINE 10 MG TABS 1 tab po qd LORATADINE 10 MG TABS 480618 LORATADINE Inactive LYRICA 50 MG CAPS 1 tab po TID LYRICA 50 MG CAPS PREGABALIN Inactive ZALEPLON 10 MG CAPS 1 cap po every other night ZALEPLON 10 MG CAPS 375571 ZALEPLON Inactive SAPHRIS 5 MG SUBL 1 tab po qd SAPHRIS 5 MG SUBL ASENAPINE MALEATE Inactive TRAZODONE HCL 50 MG TABS 1/2 tab po qd prn for anxiety TRAZODONE HCL 50 MG TABS 237894 TRAZODONE HCL Inactive LATUDA 20 MG TABS Take one by mouth daily LATUDA 20 MG TABS LURASIDONE HCL Inactive LISINOPRIL 20 MG TABS 1 tab po qd LISINOPRIL 20 MG TABS 973616 LISINOPRIL Inactive SAPHRIS 10 MG SUBL 1 [...] twice daily BACTRIM DS 800-160 MG TAB 922884 TRIMETHOPRIM-SULFAMETHOXAZOLE Inactive MULTIVITAMINS CAPS Take one by mouth daily MULTIVITAMINS CAPS MULTIPLE VITAMIN Inactive MELATONIN 3 MG CAPS 2 po q hs MELATONIN 3 MG CAPS 751775 MELATONIN Inactive KEFLEX 500 MG ORAL CAPS 1 cap QID by mouth KEFLEX 500 MG ORAL CAPS 591036 CEPHALEXIN Inactive CLINDAMYCIN HCL 150 MG CAPS 1 four times a day CLINDAMYCIN HCL 150 MG CAPS 328172 CLINDAMYCIN HCL Inactive DIFLUCAN 150 MG TAB 1 tablet by mouth daily DIFLUCAN 150 MG TAB 774986 FLUCONAZOLE Inactive PROZAC 20 MG CAP Take one by mouth daily PROZAC 20 MG CAP 283364 FLUOXETINE HCL Inactive IBUPROFEN 600 MG TAB 1 po TID PRN IBUPROFEN 600 MG TAB 871826 IBUPROFEN Inactive VYVANSE 40 MG CAPS 1 daily, VYVANSE 40 MG CAPS LISDEXAMFETAMINE DIMESYLATE Inactive TRAZODONE HCL 100 MG TAB take 1 at bedtime TRAZODONE HCL 100 MG TAB 621667 TRAZODONE HCL Inactive AMITRIPTYLINE HCL 100 MG TAB one at hs AMITRIPTYLINE HCL 100 MG TAB 227309 AMITRIPTYLINE HCL Inactive AMLODIPINE BESYLATE 5 MG TABS 1 tablet by mouth daily AMLODIPINE BESYLATE 5 MG TABS 317997 AMLODIPINE BESYLATE Inactive LATUDA 80 MG TABS Take one by mouth daily LATUDA 80 MG TABS LURASIDONE HCL Inactive SAPHRIS 5 MG SUBL 1 po bid SAPHRIS 5 MG SUBL ASENAPINE MALEATE Inactive PREDNISONE 20 MG TAB 2 tabs daily for 4 days, 1 tab daily for 4 days, 1/2 tab daily for 4 days PREDNISONE 20 MG TAB 316951 PREDNISONE Inactive AMBIEN 5 MG ORAL TABS 1 tab at bedtime AMBIEN 5 MG ORAL TABS 338042 ZOLPIDEM TARTRATE Inactive PROZAC 20 MG ORAL CAPS 1 tab daily PROZAC 20 MG ORAL CAPS 458310 FLUOXETINE HCL Inactive ABILIFY 15 MG ORAL TABS 1 tab daily ABILIFY 15 MG ORAL TABS 281710 ARIPIPRAZOLE Inactive METOPROLOL TARTRATE 50 MG TAB 1 po bid METOPROLOL TARTRATE 50 MG TAB 360512 METOPROLOL TARTRATE Inactive TRAMADOL HCL 50 MG TABS 1-2 po TID PRN Pain TRAMADOL HCL 50 MG TABS 837725 TRAMADOL HCL Inactive PIROXICAM 20 MG CAPS 1 cap po qd PRN Pain PIROXICAM 20 MG CAPS 869352 PIROXICAM Inactive MINIPRESS 2 MG CAPS 4 cap po at night MINIPRESS 2 MG CAPS 399355 PRAZOSIN HCL Inactive MIRALAX PACK 1 po qd PRN Constipation MIRALAX PACK 370397 POLYETHYLENE GLYCOL 3350 Inactive METOPROLOL TARTRATE 25 MG ORAL TABS 1/2 tablet twice daily for heart rate and blood pressure METOPROLOL TARTRATE 25 MG ORAL TABS 377858 METOPROLOL TARTRATE Inactive VALIUM 5 MG TAB Take 1-2 tablets daily VALIUM 5 MG TAB 833378 DIAZEPAM Inactive CEFDINIR 300 MG CAPS by mouth twice a day CEFDINIR 300 MG CAPS 054859 CEFDINIR Inactive PREDNISONE 20 MG TAB 2 tabs daily for 3 days, 1 tab daily for 3 days, 1/2 tab daily for 2 days PREDNISONE 20 MG TAB 911260 PREDNISONE Inactive BACTRIM DS 800-160 MG TABS [...] x 10 days KEFLEX 500 MG CAP 321036 CEPHALEXIN Inactive Advance Directives Directive Description Start [...] % 11.6-14.8 platelet count 394 10^3/MM^3 10*3/mm3 546-521 2669/01/11 leukocyte count, blood 13.8 10^3/MM^3 10*3/mm3 4.6-10.2 [...] Panel - Chemistry sodium, serum 139 mmol/L 757-532 0126/12/03 carbon dioxide, venous blood 28.5 mmol/L 21.0-32.0 [...] 5.5 % 4.3-6.0 cholesterol, serum 159 mg/dL 187-609 4622/12/03 triglyceride, serum, fasting 118 mg/dL 30-200 HDL [...] Panel - Chemistry sodium, serum 139 mmol/L 091-134 2417/12/22 carbon dioxide, venous blood 26.8 mmol/L 21.0-32.0 potassium, serum 4.2 mmol/L 3.5-5.2 chloride, serum 103 mmol/L 98-107 blood glucose 115 mg/dL 65-110 urea nitrogen, blood 20 mg/dL 7-18 creatinine, serum 0.90 mg/dL 0.55-1.30 alanine aminotransferase (SGPT), serum 38 U/L -78 aspartate aminotransferase (SGOT), serum 19 U/L 15-37 calcium, serum 8.6 mg/dL 8.5-10.1 bilirubin, serum, total 0.30 mg/dL 0.00-1.00 sodium, serum 139 mmol/L 831-847 5157/01/11 carbon dioxide, venous blood 26.6 mmol/L 21.0-32.0 potassium, serum 4.1 mmol/L 3.5-5.2 chloride, serum 100 mmol/L 98-107 blood glucose 86 mg/dL 65-110 urea nitrogen, blood 16 mg/dL 7-18 creatinine, serum 1.00 mg/dL 0.55-1.30 alanine aminotransferase (SGPT), serum 48 U/L -78 aspartate aminotransferase (SGOT), serum 17 U/L 15-37 calcium, serum 9.1 mg/dL 8.5-10.1 bilirubin, serum, total 0.40 mg/dL 0.00-1.00 sodium, serum 142 mmol/L 040-104 5722/06/08 carbon dioxide, venous blood 27.6 mmol/L 21.0-32.0 [...] Rate - Chemistry sodium, serum 139 mmol/L 211-091 5824/12/11 carbon dioxide, venous blood 25.4 mmol/L 21.0-32.0 [...] mg/dL Encounters Code Encounter Date Provider Facility CPT-89016 Level 3 Est. Patient 08:56:03 CDT Luigi Martínez [facility][note 3] CPT-77670 Level 4 Est. Patient 12:11:48 CDT Fabiola Johnson [facility][note 3] CPT-40665 Level 3 New Patient 16:53:37 CDT Albert Caldera MD [facility] CPT-62235 Level 3 Est. Patient 11:25:49 CDT Renzo Thornton DO [facility] CPT-79572 Level 3 Est. Patient 15:22:01 CDT Ahmet Carbajal MD [facility] CPT-59473 Level 4 Est. Patient 09:00:51 SOLE INKER Vishal Hui MD [facility] CPT-66623 Level 3 Est. Patient 11:37:33 SOLE INKER Vishal Hui MD [facility] CPT-65270 Level 3 Est. Patient 08:41:09 SOLE INKER Vishal Hui MD [facility] CPT-15704 Level 4 Est. Patient 10:19:35 SOLE INKER Vishal Hui MD [facility] CPT-98416 Level 3 Est. Patient 13:35:45 CDT Vishal Hui MD [facility] CPT-96734 Level 4 Est. Patient 10:08:37 CDT Vishal Hui MD [facility] CPT-93557 Level 3 Est. Patient 11:22:10 CDT Vishal Hui MD [facility] CPT-28895 Level 3 Est. Patient 11:03:32 CDT Sahara Rodriguez MD [facility]-58348 Level 3 Est. Patient 09:41:35 CDT Vishal Hui MD [facility] CPT-81293 Level 3 Est. Patient 12:00:41 CDT Neeraj Collins MD [facility] [place]-24543 Level 3 Est. Patient 09:16:24 CDT Vishal Hui MD [facility] CPT-82295 Level 4 Est. Patient 13:59:09 CDT Neeraj Collins MD [facility] [place]-27900 Level 3 Est. Patient 15:19:43 CDT Renzo Thornton DO [facility] CPT-63336 Level 3 Est. Patient 18:10:26 CDT Sahara Rodriguez MD [facility]-03400 Level 3 Est. Patient 14:49:50 CDT Vishal Hui MD [facility] CPT-88734 Level 4 Est. Patient 18:41:46 CDT Neeraj Collins MD [facility] CPT-21479 Level 4 Est. Patient 09:18:38 SOLE INKER Vishal Hui MD [facility] CPT-93947 Level 3 Est. Patient 14:43:55 SOLE INKER Vishal Hui MD [facility] [place]-18664 Level 3 Est. Patient 15:26:33 SOLE INKER Sahara Rodriguez MD PhD [facility] CPT-31570 Level 3 Est. Patient 10:32:14 SOLE INKER Vishal Hui MD [facility] CPT-40960 Level 3 Est. Patient 15:12:52 SOLE INKER Vishal Hui MD [facility] CPT-43303 Level 4 Est. Patient 09:19:27 CDT Vishal Hui MD [facility] CPT-96313 Level 3 Est. Patient 15:53:00 CDT Renzo Thornton [facility] CPT-40199 Level 3 Est. Patient 15:50:30 CDT Renzo Thornton [facility] CPT-21356 Level 3 Est. Patient 16:55:24 CDT Vishal Hui MD [facility] Procedures Code Procedure Name Date Entry Date Standard Description CPT-26594 Cervical Min 4V - XRAY USE ONLY 09:01:40 CDT CPT-58971 Chest 2V Frontal and Lat - XRAY USE ONLY 11:06:31 CDT CPT-83359 EKG Trac and Interp - XRAY USE ONLY 11:31:43 CDT 08/26 CPT-J3420 Vitamin B12 1000mcg (Cyanocobalamin) 08:10:26 SOLE INKER 04/12 CPT-50936 Abx/Therapy Injection 08:10:26 SOLE INKER CPT-G0438 Initial Annual Wellness Exam 19:01:01 SOLE INKER CPT-J3420 Vitamin B12 1000mcg (Cyanocobalamin) 16:57:46 CDT 08/14 CPT-17963 Recombivax HB Injection Suspension 5 MCG/0.5ML 08:37:50 SOLE INKER CPT-79568 Immunization Single Admin 08:37:50 SOLE INKER CPT-J3420 Vitamin B12 1000mcg (Cyanocobalamin) 08:32:16 SOLE INKER 03/11 CPT-60610 Abx/Therapy Injection 08:32:16 SOLE INKER CPT-45328 Chest 2V Frontal and Lat 11:46:38 SOLE INKER CPT-06160 Venipuncture Draw Fee 09:12:45 SOLE INKER CPT-J3420 Vitamin B12 1000mcg (Cyanocobalamin) 08:50:15 SOLE INKER 02/08 CPT-22184 Abx/Therapy Injection 08:50:15 SOLE INKER CPT-Cryo Cryotherapy 10:19:35 SOLE INKER CPT-000 Give Appropriate Flu Vaccine 09:22:16 CDT CPT-J3420 Vitamin B12 1000mcg (Cyanocobalamin) 19:08:57 CDT 01/11 CPT-45132 Abx/Therapy Injection 19:08:57 CDT CPT-J3420 Vitamin B12 1000mcg (Cyanocobalamin) 08:19:08 CDT 12/11 CPT-63523 Abx/Therapy Injection 08:19:08 CDT CPT-J3420 Vitamin B12 1000mcg (Cyanocobalamin) 14:48:00 CDT 11/09 CPT-75646 Abx/Therapy Injection 14:47:59 CDT CPT-J3420 Vitamin B12 1000mcg (Cyanocobalamin) 08:34:04 CDT 10/09 CPT-25293 Abx/Therapy Injection 08:34:04 CDT CPT-J3420 Vitamin B12 1000mcg (Cyanocobalamin) 09:18:52 CDT 09/11 CPT-40528 Abx/Therapy Injection 09:18:52 CDT CPT-J3420 Vitamin B12 1000mcg (Cyanocobalamin) 08:35:44 CDT 09/04 CPT-70400 Abx/Therapy Injection 08:35:44 CDT CPT-06658 Immunization Single Admin 11:07:16 CDT CPT-98904 Hepatitis B adult IM 11:07:16 CDT CPT-J3420 Vitamin B12 1000mcg (Cyanocobalamin) 11:00:49 CDT 08/28 CPT-J1040 Depo Medrol 80 mg (Methyl Prednisolone Acetate) 11:00: 49 CDT CPT-90990 Abx/Therapy Injection 11:00:49 CDT CPT-J1040 Depo Medrol 80 mg (Methyl Prednisolone Acetate) 09:16: 23 CDT CPT-J3420 Vitamin B12 1000mcg (Cyanocobalamin) 08:27:05 CDT 08/20 CPT-08412 Abx/Therapy Injection 08:27:05 CDT CPT-73542 Recombivax HB Injection Suspension 5 MCG/0.5ML 10:00:41 CDT CPT-08508 Administration single or combination vaccine inc oral 10 :00:41 CDT CPT-38390 Sono transvag pelvis non OB uterus ovaries cervix 16:36: 57 CDT CPT-67474 LS spine comp w obliq 09:50:55 SOLE INKER CPT-97105 Abd compl w upright 09:50:55 SOLE INKER CPT-J1100 Decadron 4mg (Dexamethasone) 15:51:24 SOLE INKER CPT-J1030 Depo Medrol 40 mg (Methyl Prednisolone Acetate) 15:51: 24 SOLE INKER CPT-06254 Abx/Therapy Injection 15:51:24 SOLE INKER CPT-J1100 Decadron 4mg (Dexamethasone) 15:26:33 SOLE INKER CPT-J1030 Depo Medrol 40 mg (Methyl Prednisolone Acetate) 15:26: 33 SOLE INKER CPT-03908 Sono retroperitoneal complete kidneys and bladder 17:15: 30 CDT CPT-20713 Abd compl w upright 16:09:25 CDT CPT-J1100 Decadron 8mg (Dexamethasone) 17:07:57 CDT CPT-27625 Abx/Therapy Injection 17:07:57 CDT CPT-J1100 Decadron 8mg (Dexamethasone) 16:55:24 CDT CPT-48337 Chest 2V Frontal and Lat 16:32:44 CDT
--- OUTSIDE RECORDS SUMMARY | 2016-11-04 19:44 | XMS REPORT | Clinical Summary ---
Author Author Admin, Dereck Organization [facility] [employer] Address Unknown Phone Unavailable Allergies, Adverse Reactions, [...] sites Morbid obesity 278.01 Active Juliet Kimbrough PSYCHIATRIC SPECIALIST Morbid obesity 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 Active Juliet Kimbrough PSYCHIATRIC SPECIALIST Dependence on other enabling machines and [...] breath Nocturnal hypoxia 799.02 Active Fabiola Johnson PSYCHIATRIC SPECIALIST Hypoxemia Neck pain 723.1 Resolved Vishal Hui [...] 6 hours as needed for cough GUAIFENESIN-CODEINE 22685871176 Active Ahmet Carbajal MD Active PREDNISONE 20 MG TABS 2 daily for 5 days then 1 daily for 5 days PREDNISONE 00943726010 Active Ahmet Carbajal MD Active LAMICTAL 100 MG ORAL TABS 1 tab q.d LAMOTRIGINE 49108979193 Active Ahmet Carbajal MD Active BENADRYL 25 MG CAP 4 po at bedtime for insomnia DIPHENHYDRAMINE HCL 70127364366 No Longer Active Ahmet Carbajal MD Active ADVAIR DISKUS 250-50 MCG/DOSE INH AEPB 1 puff twice a day for asthma FLUTICASONE-SALMETEROL 40756237680 No Longer Active Ahmet Carbajal MD Active KLONOPIN 1 MG ORAL TABS 1 tab po TID CLONAZEPAM 83035252192 No Longer Active Ahmet Carbajal MD Active ABILIFY MAINTENA 400 MG IM SUSR 400mg injection every 26 days ARIPIPRAZOLE 89857051980 No Longer Active Ahmet Carbajal MD Active HALOPERIDOL 10 MG ORAL TABS 1 tab q.d HALOPERIDOL 99692863389 Active Ahmet Carbajal MD Active ASPIRIN 325 MG ORAL TABS 1 tab q.d ASPIRIN 81218580844 Active Ahmet Carbajal MD Active HYDROCODONE-ACETAMINOPHEN 5-325 MG ORAL TABS 1 tab two times a day HYDROCODONE-ACETAMINOPHEN 61447603646 Active Ahmet Carbajal MD Active TRAMADOL HCL 50 MG TABS 1/2-1 tab TID PRN TRAMADOL HCL 21001109209 No Longer Active Ahmet Carbajal MD Active BACTRIM DS 800-160 MG TABS 1 twice a day SULFAMETHOXAZOLE- TRIMETHOPRIM 35314919754 No Longer Active Ahmet Carbajal MD Active PROAIR HFA 108 (90 BASE) MCG/ACT AERS 2 puffs four times a day as needed 2015 ALBUTEROL SULFATE 87298890281 Active Ahmet Carbajal MD Active EQ NICOTINE 21 MG/24HR TRANS PT24 Apply daily to stop smoking NICOTINE 16074739792 Active Ahmet Carbajal MD Active MONISTAT 7 COMBO PACK WOODROW 100 & 2 MG-% (9GM) VAG KIT 1 applicatorful per vagina q pm x 7 MICONAZOLE NITRATE 90864963316 No Longer Active Ahmet Carbajal MD Active FLAGYL 500 MG TAB 1 tablet by mouth bid METRONIDAZOLE 75800692183 No Longer Active Ahmet Carbajal MD Active OXYCODONE HCL ER 10 MG ORAL T12A 1/2 tab by mouth every 4 hours prn OXYCODONE HCL 30151945635 No Longer Active Ahmet Carbajal MD Active METHYLPREDNISOLONE 4 MG ORAL TABS po daily METHYLPREDNISOLONE 10624296977 No Longer Active Ahmet Carbajal MD Active LEVOFLOXACIN 500 MG ORAL TABS po daily LEVOFLOXACIN 55170313189 No Longer Active Ahmet Carbajal MD Active VIIBRYD 10 MG ORAL TABS Take 1 tablet once a day VILAZODONE HCL 35421726105 No Longer Active Ahmet Carbajal MD Active TOPAMAX 50 MG ORAL TABS 1 tab twice daily TOPIRAMATE 19900173329 No Longer Active Ahmet Carbajal MD Active DICLOFENAC SODIUM 50 MG TBEC 1 tablet by mouth four times daily PRN Pain 2015 DICLOFENAC SODIUM 64201644974 No Longer Active Ahmet Carbajal MD Active ADZENYS XR-ODT 6.3 MG ORAL TBED 1 tab po daily for ADHD AMPHETAMINE 53376797767 No Longer Active Ahmet Carbajal MD Active CHANTIX 1 MG TABS 1 twice a day to help quit smoking VARENICLINE TARTRATE 76334734318 No Longer Active Dipika Burgos MD Active CHANTIX STARTING MONTH EARNEST 0.5 MG X 11 & 1 MG X 42 TABS take as directed 2015 VARENICLINE TARTRATE 47136931484 No Longer Active Dipika Burgos MD Active TESSALON PERLES 100 MG CAP 1 to 2 tablets by mouth 3 times daily as needed for cough BENZONATATE 66183757550 No Longer Active Luigi Martínez PSYCHIATRIC SPECIALIST Active IMITREX 50 MG ORAL TABS 0.5 po x 1 PRN Headache. May repeat dose x 1 in 2 hours if needed SUMATRIPTAN SUCCINATE 28765578097 Active Lynda Xiao BACK TENDER Active HYDROCODONE-ACETAMINOPHEN 5-325 MG TABS 1 to 2 four times a day as needed for pain use until can be seen by specialist HYDROCODONE- ACETAMINOPHEN 15026498551 No Longer Active Vishal Hui MD Active PROAIR HFA 108 (90 BASE) MCG/ACT AERS 2 puffs four times a day as needed 2015 ALBUTEROL SULFATE 21566668980 No Longer Active Vishal Hui MD Active PREDNISONE 20 MG TABS 2 daily for 5 days then 1 daily for 5 days PREDNISONE 86991439880 No Longer Active Vishal Hui MD Active ZITHROMAX Z-EARNEST 250 MG TABS 2 today and then 1 daily for 4 days AZITHROMYCIN 02874328240 No Longer Active Vishal Hui MD Active DICLOFENAC POTASSIUM TABS Take 1 tablet twice a day (pt. is not sure of the dose.) DICLOFENAC POTASSIUM TABS 32043881042 No Longer Active Vishal Hui MD Active VERAPAMIL HCL ER 120 MG ORAL CR-TABS Take 1 tablet by mouth twice a day. VERAPAMIL HCL 33767351149 Active Vishal Hui MD Active FLAGYL 500 MG TAB 1 tablet by mouth bid METRONIDAZOLE 17324802905 No Longer Active Vishal Hui MD Active FLUTICASONE PROPIONATE 50 MCG/ACT SUSP 2 sprays each nostril daily before bed. FLUTICASONE PROPIONATE 39512426494 Active Fabiola Johnson APRN Active VALIUM 5 MG TAB Take 1-2 tablets daily DIAZEPAM 25217300154 No Longer Active Fabiola Johnson APRN Active METOPROLOL TARTRATE 25 MG ORAL TABS 1/2 tablet twice daily for heart rate and blood pressure METOPROLOL TARTRATE 86728254008 No Longer Active Fabiola Johnson APRN Active MIRALAX ORAL POWD 17GMS DAILY IN WATER POLYETHYLENE GLYCOL 3350 30711540472 Active Vishal Hui MD Active MIRALAX PACK 1 po qd PRN Constipation POLYETHYLENE GLYCOL 3350 31071360234 No Longer Active Ahmet Carbajal MD Active MINIPRESS 2 MG CAPS 4 cap po at night PRAZOSIN HCL 84182912743 No Longer Active Ahmet Carbajal MD Active PIROXICAM 20 MG CAPS 1 cap po qd PRN Pain PIROXICAM 75082337675 No Longer Active Ahmet Carbajal MD Active TRAMADOL HCL 50 MG TABS 1-2 po TID PRN Pain TRAMADOL HCL 04799001768 No Longer Active Ahmet Carbaajl MD Active METOPROLOL TARTRATE 50 MG TAB 1 po bid METOPROLOL TARTRATE 77084818836 No Longer Active Ahmet Carbajal MD Active ABILIFY 15 MG ORAL TABS 1 tab daily ARIPIPRAZOLE 61552762209 No Longer Active Ahmet Carbajal MD Active PROZAC 20 MG ORAL CAPS 1 tab daily FLUOXETINE HCL 30698782832 No Longer Active Ahmet Carbajal MD Active AMBIEN 5 MG ORAL TABS 1 tab at bedtime ZOLPIDEM TARTRATE 94825006420 No Longer Active Ahmet Carbajal MD Active PREDNISONE 20 MG TAB 2 tabs daily for 4 days, 1 tab daily for 4 days, 1/2 tab daily for 4 days PREDNISONE 39097244721 No Longer Active Ahmet Carbajal MD Active KEFLEX 500 MG CAP 1 po TID x 10 days CEPHALEXIN 09145012097 No Longer Active Vishal Hui MD Active SAPHRIS 5 MG SUBL 1 po bid ASENAPINE MALEATE 47018140912 No Longer Active Pacollina Mauricio NORIEGA Active LATUDA 80 MG TABS Take one by mouth daily LURASIDONE HCL 69793448799 No Longer Active Jillina Frazelephraim PSYCHIATRIC SPECIALIST Active AMLODIPINE BESYLATE 5 MG TABS 1 tablet by mouth daily AMLODIPINE BESYLATE 80599091192 No Longer Active Pacolljanee Martínez APRN Active AMITRIPTYLINE HCL 100 MG TAB one at hs AMITRIPTYLINE HCL 33470098564 No Longer Active Vishal Hui MD Active TRAZODONE HCL 100 MG TAB take 1 at bedtime TRAZODONE HCL 09793238152 No Longer Active Vishal Hui MD Active VYVANSE 40 MG CAPS 1 daily, LISDEXAMFETAMINE DIMESYLATE 62654775066 No Longer Active Vishal Hui MD Active IBUPROFEN 600 MG TAB 1 po TID PRN IBUPROFEN 60240451368 No Longer Active Vishal Hui MD Active PROZAC 20 MG CAP Take one by mouth daily FLUOXETINE HCL 18932643964 No Longer Active Vishal Hui MD Active ZOFRAN 4 MG TABS 1 po q6hr PRN Nausea ONDANSETRON HCL Active Vishal Hui MD Active BACTRIM DS 800-160 MG TABS 1 pill by mouth twice daily SULFAMETHOXAZOLE-TRIMETHOPRIM 43771873493 No Longer Active Sahara Rodriguez MD PhD Active DIFLUCAN 150 MG TAB 1 tablet by mouth daily FLUCONAZOLE 56999180317 No Longer Active Vishal Hui MD Active TIZANIDINE HCL 4 MG TABS 1 po q6hr PRN Muscle Spasm/Back Pain TIZANIDINE HCL 55348605759 Active Vishal Hui MD Active CLINDAMYCIN HCL 150 MG CAPS 1 four times a day CLINDAMYCIN HCL 16123081564 No Longer Active Neeraj Collins MD Active KEFLEX 500 MG ORAL CAPS 1 cap QID by mouth CEPHALEXIN 88735562941 No Longer Active Neeraj Collins MD Active DIFLUCAN 150 MG TABS 1 pill every other day x 2 doses FLUCONAZOLE 42566652518 No Longer Active Sahara Rodriguez MD PhD Active MELATONIN 3 MG CAPS 2 po q hs MELATONIN 25466951934 No Longer Active Sahara Rodriguez MD PhD Active MULTIVITAMINS CAPS Take one by mouth daily MULTIPLE VITAMIN 95434598265 No Longer Active Sahara Rodriguez MD PhD Active BACTRIM DS 800-160 MG TAB 1 tab by mouth twice daily TRIMETHOPRIM-SULFAMETHOXAZOLE 04433360146 No Longer Active Sahara Rordiguez MD PhD Active [facility] PROBIOTIC ORAL CHEW 2 daily po PROBIOTIC PRODUCT 53788507604 No Longer Active Sahara Rodriguez MD PhD Active BACTRIM DS 800-160 MG TABS 1 po BID x 7 days SULFAMETHOXAZOLE-TRIMETHOPRIM 15185499818 No Longer Active Vishal Hui MD Active CHANTIX STARTING MONTH EARNEST 0.5 MG X 11 & 1 MG X 42 TABS 0.5mg daily for 3 days , then 0.5mg BID for 4 days, then 1mg BID VARENICLINE TARTRATE 60714728918 No Longer Active TAMARA Gray Active VERAPAMIL HCL CR 120 MG TAB CR 1 po bid VERAPAMIL HCL 49018870056 No Longer Active Vishal Hui MD Active METOPROLOL SUCCINATE 50 MG TB24 1 tablet by mouth daily METOPROLOL SUCCINATE 28971366633 No Longer Active Vishal Hui MD Active SAPHRIS 10 MG SUBL 1 tab po bid ASENAPINE MALEATE 90503940507 No Longer Active Vishal Hui MD Active LISINOPRIL 20 MG TABS 1 tab po qd LISINOPRIL 85793186103 No Longer Active Vishal Hui MD Active LATUDA 20 MG TABS Take one by mouth daily LURASIDONE HCL 22140695712 No Longer Active Vishal Hui MD Active TRAZODONE HCL 50 MG TABS 1/2 tab po qd prn for anxiety TRAZODONE HCL 67366664097 No Longer Active Vishal Hui MD Active OMEPRAZOLE 20 MG TBEC 1 po q a.m. 30min prior to first food intake OMEPRAZOLE 69366552552 Active Vishal Hui MD Active RANITIDINE HCL 150 MG CAPS 1 twice a day RANITIDINE HCL 60570626522 Active Jioral Martínez APRN Active LINZESS 290 MCG CAPS Take one by mouth daily LINACLOTIDE 14335514572 No Longer Active Vishal Hui MD Active SAPHRIS 5 MG SUBL 1 tab po qd ASENAPINE MALEATE 77545439891 No Longer Active Vishal Hui MD Active ZALEPLON 10 MG CAPS 1 cap po every other night ZALEPLON 10430550978 No Longer Active Vishal Hui MD Active LYRICA 50 MG CAPS 1 tab po TID PREGABALIN 03539531480 No Longer Active Vishal Hui MD Active LORATADINE 10 MG TABS 1 tab po qd LORATADINE 85122515205 No Longer Active Vishal Hui MD Active VERAPAMIL HCL ER 180 MG CR-TABS 1 tab po bid VERAPAMIL HCL 38101853419 No Longer Active Vishal Hui MD Active MIRALAX POWD 1 capfull once daily POLYETHYLENE GLYCOL 3350 03557041623 No Longer Active Vishal Hui MD Active PREDNISONE 20 MG TABS 1 tab po qd PREDNISONE 94719579951 No Longer Active Renzo Thornton DO Active LEVOFLOXACIN 500 MG TABS 1 tab po qd LEVOFLOXACIN 29569095987 No Longer Active Renzo Thornton DO Active BUSPIRONE HCL 15 MG TABS 1 tab po TID BUSPIRONE HCL 59790923407 No Longer Active Renzo Thornton DO Active BENZTROPINE MESYLATE 1 MG TABS 1 tab po qd BENZTROPINE MESYLATE 60729449207 No Longer Active Renzo Thornton DO Active ATENOLOL 25 MG TABS 1 tab po qd ATENOLOL 79283604809 No Longer Active Renzo Thornton DO Active ESCITALOPRAM OXALATE 20 MG TABS 1 tab po qd ESCITALOPRAM OXALATE 63024619586 No Longer Active Renzo Thornton DO Active ADVAIR DISKUS 250-50 MCG/DOSE AEPB 1 puff BID FLUTICASONE-SALMETEROL 16853839766 No Longer Active Renzo Thornton DO Active PREDNISONE 20 MG TAB 2 tabs daily for 3 days, 1 tab daily for 3 days, 1/2 tab daily for 2 days PREDNISONE 52870021052 No Longer Active Vishal Hui MD Active CEFDINIR 300 MG CAPS by mouth twice a day CEFDINIR 38996988125 No Longer Active Vishal Hui MD Active LANSOPRAZOLE 30 MG CPDR 1 cap po qd LANSOPRAZOLE 71020393639 No Longer Active Vishal Hui MD Active BACLOFEN 20 MG TABS 1 tab po tid BACLOFEN 51199921852 No Longer Active Vishal Hui MD Active ADVAIR DISKUS 250-50 MCG/DOSE AEPB 1 puff BID ADVAIR DISKUS 250-50 MCG/DOSE AEPB FLUTICASONE-SALMETEROL Inactive ESCITALOPRAM OXALATE 20 MG TABS 1 tab po qd ESCITALOPRAM OXALATE 20 MG TABS 211612 ESCITALOPRAM OXALATE Inactive ATENOLOL 25 MG TABS 1 tab po qd ATENOLOL 25 MG TABS 035718 ATENOLOL Inactive BENZTROPINE MESYLATE 1 MG TABS 1 tab po qd BENZTROPINE MESYLATE 1 MG TABS 065776 BENZTROPINE MESYLATE Inactive BUSPIRONE HCL 15 MG TABS 1 tab po TID BUSPIRONE HCL 15 MG TABS 207683 BUSPIRONE HCL Inactive LEVOFLOXACIN 500 MG TABS 1 tab po qd LEVOFLOXACIN 500 MG TABS 998580 LEVOFLOXACIN Inactive PREDNISONE 20 MG TABS 1 tab po qd PREDNISONE 20 MG TABS 477165 PREDNISONE Inactive MIRALAX POWD 1 capfull once daily MIRALAX POWD 664273 POLYETHYLENE GLYCOL 3350 Inactive VERAPAMIL HCL ER 180 MG CR-TABS 1 tab po bid VERAPAMIL HCL ER 180 MG CR-TABS VERAPAMIL HCL Inactive LORATADINE 10 MG TABS 1 tab po qd LORATADINE 10 MG TABS 613209 LORATADINE Inactive LYRICA 50 MG CAPS 1 tab po TID LYRICA 50 MG CAPS PREGABALIN Inactive ZALEPLON 10 MG CAPS 1 cap po every other night ZALEPLON 10 MG CAPS 280489 ZALEPLON Inactive SAPHRIS 5 MG SUBL 1 tab po qd SAPHRIS 5 MG SUBL ASENAPINE MALEATE Inactive TRAZODONE HCL 50 MG TABS 1/2 tab po qd prn for anxiety TRAZODONE HCL 50 MG TABS 525061 TRAZODONE HCL Inactive LATUDA 20 MG TABS Take one by mouth daily LATUDA 20 MG TABS LURASIDONE HCL Inactive LISINOPRIL 20 MG TABS 1 tab po qd LISINOPRIL 20 MG TABS 904106 LISINOPRIL Inactive SAPHRIS 10 MG SUBL 1 [...] twice daily BACTRIM DS 800-160 MG TAB 487007 TRIMETHOPRIM-SULFAMETHOXAZOLE Inactive MULTIVITAMINS CAPS Take one by mouth daily MULTIVITAMINS CAPS MULTIPLE VITAMIN Inactive MELATONIN 3 MG CAPS 2 po q hs MELATONIN 3 MG CAPS 648636 MELATONIN Inactive KEFLEX 500 MG ORAL CAPS 1 cap QID by mouth KEFLEX 500 MG ORAL CAPS 480706 CEPHALEXIN Inactive CLINDAMYCIN HCL 150 MG CAPS 1 four times a day CLINDAMYCIN HCL 150 MG CAPS 734876 CLINDAMYCIN HCL Inactive DIFLUCAN 150 MG TAB 1 tablet by mouth daily DIFLUCAN 150 MG TAB 235727 FLUCONAZOLE Inactive PROZAC 20 MG CAP Take one by mouth daily PROZAC 20 MG CAP 807304 FLUOXETINE HCL Inactive IBUPROFEN 600 MG TAB 1 po TID PRN IBUPROFEN 600 MG TAB 461188 IBUPROFEN Inactive VYVANSE 40 MG CAPS 1 daily, VYVANSE 40 MG CAPS LISDEXAMFETAMINE DIMESYLATE Inactive TRAZODONE HCL 100 MG TAB take 1 at bedtime TRAZODONE HCL 100 MG TAB 994753 TRAZODONE HCL Inactive AMITRIPTYLINE HCL 100 MG TAB one at hs AMITRIPTYLINE HCL 100 MG TAB 019103 AMITRIPTYLINE HCL Inactive AMLODIPINE BESYLATE 5 MG TABS 1 tablet by mouth daily AMLODIPINE BESYLATE 5 MG TABS 477167 AMLODIPINE BESYLATE Inactive LATUDA 80 MG TABS Take one by mouth daily LATUDA 80 MG TABS LURASIDONE HCL Inactive SAPHRIS 5 MG SUBL 1 po bid SAPHRIS 5 MG SUBL ASENAPINE MALEATE Inactive PREDNISONE 20 MG TAB 2 tabs daily for 4 days, 1 tab daily for 4 days, 1/2 tab daily for 4 days PREDNISONE 20 MG TAB 096890 PREDNISONE Inactive AMBIEN 5 MG ORAL TABS 1 tab at bedtime AMBIEN 5 MG ORAL TABS 310488 ZOLPIDEM TARTRATE Inactive PROZAC 20 MG ORAL CAPS 1 tab daily PROZAC 20 MG ORAL CAPS 319103 FLUOXETINE HCL Inactive ABILIFY 15 MG ORAL TABS 1 tab daily ABILIFY 15 MG ORAL TABS 684882 ARIPIPRAZOLE Inactive METOPROLOL TARTRATE 50 MG TAB 1 po bid METOPROLOL TARTRATE 50 MG TAB 122392 METOPROLOL TARTRATE Inactive TRAMADOL HCL 50 MG TABS 1-2 po TID PRN Pain TRAMADOL HCL 50 MG TABS 434270 TRAMADOL HCL Inactive PIROXICAM 20 MG CAPS 1 cap po qd PRN Pain PIROXICAM 20 MG CAPS 287764 PIROXICAM Inactive MINIPRESS 2 MG CAPS 4 cap po at night MINIPRESS 2 MG CAPS 302947 PRAZOSIN HCL Inactive MIRALAX PACK 1 po qd PRN Constipation MIRALAX PACK 306488 POLYETHYLENE GLYCOL 3350 Inactive METOPROLOL TARTRATE 25 MG ORAL TABS 1/2 tablet twice daily for heart rate and blood pressure METOPROLOL TARTRATE 25 MG ORAL TABS 485908 METOPROLOL TARTRATE Inactive VALIUM 5 MG TAB Take 1-2 tablets daily VALIUM 5 MG TAB 840902 DIAZEPAM Inactive FLAGYL 500 MG TAB 1 tablet by mouth bid FLAGYL 500 MG TAB 433046 METRONIDAZOLE Inactive DICLOFENAC POTASSIUM TABS Take 1 tablet twice a day (pt. is not sure of the dose.) DICLOFENAC POTASSIUM TABS DICLOFENAC POTASSIUM TABS Inactive ZITHROMAX Z-EARNEST 250 MG TABS 2 today and then 1 daily for 4 days ZITHROMAX Z-EARNEST 250 MG TABS 0808327 AZITHROMYCIN Inactive PREDNISONE 20 MG TABS 2 daily for 5 days then 1 daily for 5 days PREDNISONE 20 MG TABS 531624 PREDNISONE Inactive PROAIR HFA 108 (90 BASE) MCG/ACT AERS 2 puffs four times a day as needed 2015 PROAIR HFA 108 (90 BASE) MCG/ACT AERS ALBUTEROL SULFATE Inactive HYDROCODONE-ACETAMINOPHEN 5-325 MG TABS 1 to 2 four times a day as needed for pain use until can be seen by specialist HYDROCODONE- ACETAMINOPHEN 5-325 MG TABS 886426 HYDROCODONE-ACETAMINOPHEN Inactive TESSALON PERLES 100 MG CAP 1 to 2 tablets by mouth 3 times daily as needed for cough TESSALON PERLES 100 MG CAP 992929 BENZONATATE Inactive CHANTIX STARTING MONTH EARNEST 0.5 [...] Pain 2015 DICLOFENAC SODIUM 50 MG [facility] 544638 DICLOFENAC SODIUM Inactive TOPAMAX 50 MG ORAL TABS 1 tab twice daily TOPAMAX 50 MG ORAL TABS 028073 TOPIRAMATE Inactive VIIBRYD 10 MG ORAL TABS Take 1 tablet once a day VIIBRYD 10 MG ORAL TABS VILAZODONE HCL Inactive LEVOFLOXACIN 500 MG ORAL TABS po daily LEVOFLOXACIN 500 MG ORAL TABS 370277 LEVOFLOXACIN Inactive METHYLPREDNISOLONE 4 MG ORAL TABS po daily METHYLPREDNISOLONE 4 MG ORAL TABS 472121 METHYLPREDNISOLONE Inactive OXYCODONE HCL ER 10 MG ORAL T12A 1/2 tab by mouth every 4 hours prn OXYCODONE HCL ER 10 MG ORAL T12A OXYCODONE HCL Inactive FLAGYL 500 MG TAB 1 tablet by mouth bid FLAGYL 500 MG TAB 075779 METRONIDAZOLE Inactive MONISTAT 7 COMBO PACK WOODROW 100 & 2 MG-% (9GM) VAG KIT 1 applicatorful per vagina q pm x 7 MONISTAT 7 COMBO PACK WOODROW 100 & 2 MG-% (9GM) VAG KIT MICONAZOLE NITRATE Inactive BACTRIM DS 800-160 MG TABS 1 twice a day BACTRIM DS 800-160 MG TABS 457366 SULFAMETHOXAZOLE-TRIMETHOPRIM Inactive TRAMADOL HCL 50 MG TABS 1/2-1 tab TID PRN TRAMADOL HCL 50 MG TABS 376305 TRAMADOL HCL Inactive ABILIFY MAINTENA 400 MG IM SUSR 400mg injection every 26 days ABILIFY MAINTENA 400 MG IM SUSR ARIPIPRAZOLE Inactive KLONOPIN 1 MG ORAL TABS 1 tab po TID KLONOPIN 1 MG ORAL TABS 922430 CLONAZEPAM Inactive ADVAIR DISKUS 250-50 MCG/DOSE INH AEPB 1 puff twice a day for asthma ADVAIR DISKUS 250-50 MCG/DOSE INH AEPB FLUTICASONE- SALMETEROL Inactive BENADRYL 25 MG CAP 4 po at bedtime for insomnia BENADRYL 25 MG CAP DIPHENHYDRAMINE HCL Inactive CEFDINIR 300 MG CAPS by mouth twice a day CEFDINIR 300 MG CAPS 276838 CEFDINIR Inactive PREDNISONE 20 MG TAB 2 tabs daily for 3 days, 1 tab daily for 3 days, 1/2 tab daily for 2 days PREDNISONE 20 MG TAB 984942 PREDNISONE Inactive BACTRIM DS 800-160 MG TABS 1 po BID x 7 days BACTRIM DS 800-160 MG TABS 19820521 SULFAMETHOXAZOLE-TRIMETHOPRIM Inactive DIFLUCAN 150 MG TABS 1 pill every other day x 2 doses DIFLUCAN 150 MG TABS 201661 FLUCONAZOLE Inactive BACTRIM DS 800-160 MG TABS 1 pill by mouth twice daily BACTRIM DS 800-160 MG TABS 19820521 SULFAMETHOXAZOLE-TRIMETHOPRIM Inactive KEFLEX 500 MG CAP 1 po TID x 10 days KEFLEX 500 MG CAP 448218 CEPHALEXIN Inactive Advance Directives Directive Description Start [...] % 11.6-14.8 platelet count 394 10^3/MM^3 10*3/mm3 493-409 3862/01/11 leukocyte count, blood 13.8 10^3/MM^3 10*3/mm3 4.6-10.2 [...] 390 10^3/MM^3 10*3/mm3 142-424 Lab Report: Chlamydia/GC [id number] - Lab chlamydia DNA probe NOT DETECTED NOT DETECTED Lab Report: Chlamydia/GC [id number] - Microbiology Neisseria gonorrhoeae DNA probe NOT DETECTED NOT DETECTED Lab Report: Comp. Metabolic Panel - Chemistry sodium, serum 140 mmol/L 279-819 0664/08/08 carbon dioxide, venous blood 33.7 mmol/L 21.0-32.0 potassium, serum 5.0 mmol/L 3.5-5.2 chloride, serum 103 mmol/L 98-107 blood glucose 80 mg/dL 65-110 urea nitrogen, blood 13 mg/dL 7-18 creatinine, serum 0.88 mg/dL 0.55-1.30 alanine aminotransferase (SGPT), serum 54 U/L -78 aspartate aminotransferase (SGOT), serum 29 U/L 15-37 calcium, serum 9.7 mg/dL 8.5-10.1 bilirubin, serum, total 0.30 mg/dL 0.00-1.00 sodium, serum 139 mmol/L 411-169 3821/12/22 carbon dioxide, venous blood 26.8 mmol/L 21.0-32.0 potassium, serum 4.2 mmol/L 3.5-5.2 chloride, serum 103 mmol/L 98-107 blood glucose 115 mg/dL 65-110 urea nitrogen, blood 20 mg/dL 7-18 creatinine, serum 0.90 mg/dL 0.55-1.30 alanine aminotransferase (SGPT), serum 38 U/L 12-78 aspartate aminotransferase (SGOT), serum 19 U/L 15-37 calcium, serum 8.6 mg/dL 8.5-10.1 bilirubin, serum, total 0.30 mg/dL 0.00-1.00 sodium, serum 139 mmol/L 871-513 5291/01/11 carbon dioxide, venous blood 26.6 mmol/L 21.0-32.0 potassium, serum 4.1 mmol/L 3.5-5.2 chloride, serum 100 mmol/L 98-107 blood glucose 86 mg/dL 65-110 urea nitrogen, blood 16 mg/dL 7-18 creatinine, serum 1.00 mg/dL 0.55-1.30 alanine aminotransferase (SGPT), serum 48 U/L -78 aspartate aminotransferase (SGOT), serum 17 U/L 15-37 calcium, serum 9.1 mg/dL 8.5-10.1 bilirubin, serum, total 0.40 mg/dL 0.00-1.00 sodium, serum 142 mmol/L 976-424 6092/06/08 carbon dioxide, venous blood 27.6 mmol/L 21.0-32.0 [...] mg/dL Encounters Code Encounter Date Provider Facility CPT-51298 Level 3 Est. Patient 10:40:11 VULCANIZER OPERATOR Ahmet Carbajal MD [facility] CPT-59032 Level 3 Est. Patient 15:07:06 VULCANIZER OPERATOR Neeraj Collins MD [facility] CPT-82661 Level 4 Est. Patient 14:45:00 VULCANIZER OPERATOR Ahmet Carabjal MD [facility] CPT-15512 Level 3 Est. Patient 13:59:59 CDT Luigi Martínez [facility] [place] [facility] [place] CPT-35356 Level 3 Est. Patient 18:18:53 CDT Neeraj Collins MD [facility] CPT-07184 Level 3 Est. Patient 15:50:44 CDT Vishal Hui MD [facility] CPT-00864 Level 3 Est. Patient 11:36:17 CDT Ahmet Carbajal MD [facility] CPT-18029 Level 3 Est. Patient 13:29:16 CDT Vishal Hui MD [facility] CPT-27902 Level 3 Est. Patient 14:27:52 CDT Neeraj Collins MD [facility] CPT-28462 Level 3 Est. Patient 08:56:03 CDT Luigi Martínez [facility] [place] [facility] [place] CPT-28816 Level 4 Est. Patient 12:11:48 CDT Fabiola Johnson [facility] [place] [facility] [place] CPT-50380 Level 3 New Patient 16:53:37 CDT Albert Caldera MD [facility] CPT-21281 Level 3 Est. Patient 11:25:49 CDT Renzo Thornton DO [facility] CPT-17336 Level 3 Est. Patient 15:22:01 CDT Ahmet Carbajal MD [facility] CPT-73197 Level 4 Est. Patient 09:00:51 VULCANIZER OPERATOR Vishal Hui MD [facility] CPT-37457 Level 3 Est. Patient 11:37:33 VULCANIZER OPERATOR Vishal Hui MD [facility] CPT-08080 Level 3 Est. Patient 08:41:09 VULCANIZER OPERATOR Vishal Hui MD [facility] CPT-20430 Level 4 Est. Patient 10:19:35 VULCANIZER OPERATOR Vishal Hui MD [facility] CPT-26064 Level 3 Est. Patient 13:35:45 CDT Vishal Hui MD [facility] CPT-54267 Level 4 Est. Patient 10:08:37 CDT Vishal Hui MD [facility] CPT-11057 Level 3 Est. Patient 11:22:10 CDT Vishal Hui MD [facility] CPT-77501 Level 3 Est. Patient 11:03:32 CDT Sahara Rodriguez MD [facility]-87034 Level 3 Est. Patient 09:41:35 CDT Vishal Hui MD [facility]-60101 Level 3 Est. Patient 12:00:41 CDT Neeraj Collins MD [facility] CPT-50398 Level 3 Est. Patient 09:16:24 CDT Vishal Hui MD [facility]-87602 Level 4 Est. Patient 13:59:09 CDT Neeraj Collins MD [facility] CPT-48033 Level 3 Est. Patient 15:19:43 CDT Renzo Thornton DO [facility] CPT-78760 Level 3 Est. Patient 18:10:26 CDT Sahara Rodriguez MD [facility] CPT-81428 Level 3 Est. Patient 14:49:50 CDT Vishal Hui MD [facility]-[address] Level 4 Est. Patient 18:41:46 CDT Neeraj Collins MD [facility]-[address] Level 4 Est. 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 Patient 14:43:55 VULCANIZER OPERATOR Vishal Hui MD [facility] CPT-75784 Level 3 Est. Patient 15:26:33 VULCANIZER OPERATOR Sahara Rodriguez MD [facility] CPT-85542 Level 3 Est. Patient 10:32:14 VULCANIZER OPERATOR Vishal Hui MD [facility] CPT-38858 Level 3 Est. Patient 15:12:52 VULCANIZER OPERATOR Vishal Hui MD [facility] CPT-76575 Level 4 Est. Patient 09:19:27 CDT Vishal Hui MD [facility] CPT-01059 Level 3 Est. Patient 15:53:00 CDT Renzo Thornton [facility] CPT-70039 Level 3 Est. Patient 15:50:30 CDT Renzo Thornton [facility] CPT-84523 Level 3 Est. 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 CPT-80567 Nexplanon Removal with Reinsertion 14:09:32 CDT CPT-J7307 Nexplanon (Implant) 14:09:32 CDT CPT-OV Office Visit 14:09:32 CDT CPT-51779 UA w micro - LAB USE ONLY 16:21:13 CDT CPT-57297 Wet Mount - LAB USE ONLY 16:21:13 CDT CPT-98707 First Vx - Ix admin for Medicare patients 14:37:47 CDT CPT-90445 Fluzone Preservative Free Intramuscular Suspension 14:37 :47 CDT CPT-68856 Abx/Therapy Injection 13:54:22 CDT CPT-24019 Abx/Therapy Injection 08:47:09 CDT CPT-79716 Abx/Therapy Injection 13:29:56 CDT CPT-23266 Abx/Therapy Injection 08:36:16 CDT CPT-89421 Wet Mount - LAB USE ONLY 17:44:58 CDT CPT-03761 UA w micro - LAB USE ONLY 17:44:58 CDT CPT-34326 CMP - LAB USE ONLY 17:44:58 CDT CPT-37708 Venipuncture Draw Fee 17:44:58 CDT CPT-85527 Cervical Min 4V - XRAY USE ONLY 09:01:40 CDT CPT-40525 Chest 2V Frontal and Lat - XRAY USE ONLY 11:06:31 CDT CPT-06975 EKG Trac and Interp - XRAY USE ONLY 11:31:43 CDT 08/26 CPT-J3420 Vitamin B12 1000mcg (Cyanocobalamin) 08:10:26 VULCANIZER OPERATOR 04/12 CPT-31635 Abx/Therapy Injection 08:10:26 VULCANIZER OPERATOR CPT-G0438 Initial Annual Wellness Exam 19:01:01 VULCANIZER OPERATOR CPT-J3420 Vitamin B12 1000mcg (Cyanocobalamin) 16:57:46 CDT 08/14 CPT-64938 Recombivax HB Injection Suspension 5 MCG/0.5ML 08:37:50 VULCANIZER OPERATOR CPT-79397 Immunization Single Admin 08:37:50 VULCANIZER OPERATOR CPT-J3420 Vitamin B12 1000mcg (Cyanocobalamin) 08:32:16 VULCANIZER OPERATOR 03/11 CPT-34413 Abx/Therapy Injection 08:32:16 VULCANIZER OPERATOR CPT-82573 Chest 2V Frontal and Lat 11:46:38 VULCANIZER OPERATOR CPT-84800 Venipuncture Draw Fee 09:12:45 VULCANIZER OPERATOR CPT-J3420 Vitamin B12 1000mcg (Cyanocobalamin) 08:50:15 VULCANIZER OPERATOR 02/08 CPT-50509 Abx/Therapy Injection 08:50:15 VULCANIZER OPERATOR CPT-Cryo Cryotherapy 10:19:35 VULCANIZER OPERATOR CPT-000 Give Appropriate Flu Vaccine 09:22:16 CDT CPT-J3420 Vitamin B12 1000mcg (Cyanocobalamin) 19:08:57 CDT 01/11 CPT-11641 Abx/Therapy Injection 19:08:57 CDT CPT-J3420 Vitamin B12 1000mcg (Cyanocobalamin) 08:19:08 CDT 12/11 CPT-30570 Abx/Therapy Injection 08:19:08 CDT CPT-J3420 Vitamin B12 1000mcg (Cyanocobalamin) 14:48:00 CDT 11/09 CPT-88477 Abx/Therapy Injection 14:47:59 CDT CPT-J3420 Vitamin B12 1000mcg (Cyanocobalamin) 08:34:04 CDT 10/09 CPT-96943 Abx/Therapy Injection 08:34:04 CDT CPT-J3420 Vitamin B12 1000mcg (Cyanocobalamin) 09:18:52 CDT 09/11 CPT-85206 Abx/Therapy Injection 09:18:52 CDT CPT-J3420 Vitamin B12 1000mcg (Cyanocobalamin) 08:35:44 CDT 09/04 CPT-42273 Abx/Therapy Injection 08:35:44 CDT CPT-69849 Immunization Single Admin 11:07:16 CDT CPT-62421 Hepatitis B adult IM 11:07:16 CDT CPT-J3420 Vitamin B12 1000mcg (Cyanocobalamin) 11:00:49 CDT 08/28 CPT-J1040 Depo Medrol 80 mg (Methyl Prednisolone Acetate) 11:00: 49 CDT CPT-54523 Abx/Therapy Injection 11:00:49 CDT CPT-J1040 Depo Medrol 80 mg (Methyl Prednisolone Acetate) 09:16: 23 CDT CPT-J3420 Vitamin B12 1000mcg (Cyanocobalamin) 08:27:05 CDT 08/20 CPT-27675 Abx/Therapy Injection 08:27:05 CDT CPT-38714 Recombivax HB Injection Suspension 5 MCG/0.5ML 10:00:41 CDT CPT-54375 Administration single or combination vaccine inc oral 10 :00:41 CDT CPT-05881 Sono transvag pelvis non OB uterus ovaries cervix 16:36: 57 CDT CPT-28999 LS spine comp w obliq 09:50:55 VULCANIZER OPERATOR CPT-09255 Abd compl w upright 09:50:55 VULCANIZER OPERATOR CPT-J1100 Decadron 4mg (Dexamethasone) 15:51:24 VULCANIZER OPERATOR CPT-J1030 Depo Medrol 40 mg (Methyl Prednisolone Acetate) 15:51: 24 VULCANIZER OPERATOR CPT-71747 Abx/Therapy Injection 15:51:24 VULCANIZER OPERATOR CPT-J1100 Decadron 4mg (Dexamethasone) 15:26:33 VULCANIZER OPERATOR CPT-J1030 Depo Medrol 40 mg (Methyl Prednisolone Acetate) 15:26: 33 VULCANIZER OPERATOR CPT-09115 Sono retroperitoneal complete kidneys and bladder 17:15: 30 CDT CPT-16270 Abd compl w upright 16:09:25 CDT CPT-J1100 Decadron 8mg (Dexamethasone) 17:07:57 CDT CPT-36633 Abx/Therapy Injection 17:07:57 CDT CPT-J1100 Decadron 8mg (Dexamethasone) 16:55:24 CDT CPT-69404 Chest 2V Frontal and Lat 16:32:44 CDT
--- OUTSIDE RECORDS SUMMARY | 2016-11-04 19:48 | XMS REPORT | Clinical Summary ---
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 V72.31 Active Suzan [...] MD Health screening ICD-V70.0 Inactive Suzan Boo TELEPHONE SURVEYOR Sinus tachycardia ICD-427.89 Jim Boo APRN Smoker/tobacco [...] Inactive Suzan Boo APRN DYSURIA ICD-788.1 Inactive Szuan Boo APRN Cellulitis and abscess of breast [...] twice a day for 5 days TRIMETHOPRIM-SULFAMETHOXAZOLE 74682015596 Active Samantha MCDONALD Active MUPIROCIN 2 % OINT apply twice a day MUPIROCIN 55465012920 No Longer Active Suzan Boo APRN Active BACTRIM DS 800-160 MG TABS 1 twice a day SULFAMETHOXAZOLE-TRIMETHOPRIM 30272367665 No Longer Active Suzan Boo APRN Active DIFLUCAN 150 MG TABS 1 by mouth for yeast FLUCONAZOLE 65968283864 No Longer Active Suzan Boo APRN Active AMITIZA 8 MCG ORAL CAPS 1 capsule twice daily LUBIPROSTONE 05175975588 Active Sheila Calderon LPN Active LINZESS 290 MCG ORAL CAPS 1 tab 30 min prior to first meal each day. LINACLOTIDE 69613248823 No Longer Active Sheila Calderon LPN Active AMITIZA 8 MCG ORAL CAPS 1 tab BID LUBIPROSTONE 49308961585 No Longer Active Lynda Xiao LPN Active LACTULOSE 10 GM/15ML ORAL SOLN 30mL oral BID for IBS-C LACTULOSE 96198581488 Active Suzan Boo APRN Active TESSALON PERLES 100 MG CAPS 1 three times a day as needed for cough BENZONATATE 07396506152 No Longer Active Suzan Boo APRN Active BACTRIM DS 800-160 MG TABS 1 twice a day SULFAMETHOXAZOLE-TRIMETHOPRIM 85600151077 No Longer Active Suzan Boo APRN Active DIFLUCAN 150 MG TABS 1 by mouth for yeast FLUCONAZOLE 24601980541 No Longer Active Suzan Boo APRN Active EQ NICOTINE 21 MG/24HR TRANS PT24 Apply daily to stop smoking NICOTINE 26920381921 No Longer Active Suzan Boo APRN Active PREDNISONE 10 MG TABS 2 daily for 5 days then 1 daily for 5 days PREDNISONE 36145074591 No Longer Active Suzan Boo APRN Active LEVAQUIN 500 MG TABS 1 daily for infection LEVOFLOXACIN 69052945146 No Longer Active Suzan Boo APRN Active TROPICAMIDE 0.5 % OPHTH SOLN 1 drop PRN eye spasms TROPICAMIDE 12296266072 No Longer Active Suzan Boo APRN Active PREDNISONE 20 MG TAB 1 tablet daily x 4 days PREDNISONE 36061053523 No Longer Active Suzan Boo APRN Active ACETAMINOPHEN-CODEINE 120-12 MG/5ML SOLN 5 ml by mouth every 4-6 hours if needed for cough ACETAMINOPHEN-CODEINE 22897042407 No Longer Active Suzan Boo APRN Active KEFLEX 500 MG CAP 1 po qid CEPHALEXIN 11476918590 No Longer Active Suzan Boo APRN Active FLOVENT HFA 110 MCG/ACT AERO 2 puffs inhaled b.i.d. FLUTICASONE PROPIONATE HFA 69920205125 Active Renzo Thornton DO Active RISPERDAL 4 MG ORAL TABS 1 tab at bedtime RISPERIDONE 81263287849 Active Samantha Rothman RMA Active ZOFRAN 4 MG TABS 1 po q6hr PRN Nausea ONDANSETRON HCL No Longer Active Suzan Boo APRN Active FLUTICASONE PROPIONATE 50 MCG/ACT SUSP 2 sprays each nostril daily before bed. FLUTICASONE PROPIONATE 09495609128 No Longer Active Suzan Boo APRN Active ASPIRIN 325 MG ORAL TABS 1 tab q.d ASPIRIN 56881592710 No Longer Active Suzan Boo APRN Active HALOPERIDOL 10 MG ORAL TABS 1 tab q.d HALOPERIDOL 41991610971 No Longer Active Suzan Boo APRN Active GUAIFENESIN-CODEINE 100-10 MG/5ML SYRP 5ml every 4 to 6 hours as needed for cough GUAIFENESIN-CODEINE 43819569487 No Longer Active Suzan Boo APRN Active ZITHROMAX Z-EARNEST 250 MG TABS 2 today and then 1 daily for 4 days AZITHROMYCIN 15496908914 No Longer Active Suzan Boo APRN Active CLONAZEPAM 1 MG ORAL TABS 1 twice a day and an additional 1 tablet every other day as needed for pseudoseizures or anxiety CLONAZEPAM 68589808128 Active Suzan Boo APRN Active HYDROCODONE-ACETAMINOPHEN 5-325 MG ORAL TABS 1 tab two times a day HYDROCODONE-ACETAMINOPHEN 35273997065 No Longer Active Ahmet Carbajal MD Active LAMICTAL 100 MG ORAL TABS 1 tab 2 times qd. LAMOTRIGINE 35888585477 Active Ahmet Carbajal MD Active PREDNISONE 20 MG TABS 2 daily for 5 days then 1 daily for 5 days PREDNISONE 40330294530 No Longer Active Ahmet Carbajal MD Active FLUTICASONE PROPIONATE 50 MCG/ACT SUSP 1 to 2 sprays each nostril daily for allergies FLUTICASONE PROPIONATE 44720486862 Active Tila Valenzuela Active BENADRYL 25 MG CAP 4 po at bedtime for insomnia DIPHENHYDRAMINE HCL 12607270576 No Longer Active Ahmet Carbajal MD Active ADVAIR DISKUS 250-50 MCG/DOSE INH AEPB 1 puff twice a day for asthma FLUTICASONE-SALMETEROL 60098390644 No Longer Active Ahmet Carbajal MD Active KLONOPIN 1 MG ORAL TABS 1 tab po TID CLONAZEPAM 65797329951 No Longer Active Ahmet Carbajal MD Active ABILIFY MAINTENA 400 MG IM SUSR 400mg injection every 26 days ARIPIPRAZOLE 12840611490 No Longer Active Ahmet Carbajal MD Active TRAMADOL HCL 50 MG TABS 1/2-1 tab TID PRN TRAMADOL HCL 15561147722 No Longer Active Ahmet Carbajal MD Active BACTRIM DS 800-160 MG TABS 1 twice a day SULFAMETHOXAZOLE- TRIMETHOPRIM 47778410879 No Longer Active Ahmet Carbajal MD Active PROAIR HFA 108 (90 BASE) MCG/ACT AERS 2 puffs four times a day as needed 2015 ALBUTEROL SULFATE 77211806068 Active Honey Hinton TELEPHONE SURVEYOR Active MONISTAT 7 COMBO PACK WOODROW 100 & 2 MG-% (9GM) VAG KIT 1 applicatorful per vagina q pm x 7 MICONAZOLE NITRATE 72383782855 No Longer Active Ahmet Carbajal MD Active FLAGYL 500 MG TAB 1 tablet by mouth bid METRONIDAZOLE 36044637677 No Longer Active Ahmet Carbajal MD Active OXYCODONE HCL ER 10 MG ORAL T12A 1/2 tab by mouth every 4 hours prn OXYCODONE HCL 42143409452 No Longer Active Ahmet Carbajal MD Active METHYLPREDNISOLONE 4 MG ORAL TABS po daily METHYLPREDNISOLONE 92302708997 No Longer Active Ahmet Carbajal MD Active LEVOFLOXACIN 500 MG ORAL TABS po daily LEVOFLOXACIN 06311699635 No Longer Active Ahmet Carbajal MD Active VIIBRYD 10 MG ORAL TABS Take 1 tablet once a day VILAZODONE HCL 78296301704 No Longer Active Ahmet Carbajal MD Active TOPAMAX 50 MG ORAL TABS 1 tab twice daily TOPIRAMATE 96257139109 No Longer Active Ahmet Carbajal MD Active DICLOFENAC SODIUM 50 MG TBEC 1 tablet by mouth four times daily PRN Pain 2015 DICLOFENAC SODIUM 55565312358 No Longer Active Ahmet Carbajal MD Active ADZENYS XR-ODT 6.3 MG ORAL TBED 1 tab po daily for ADHD AMPHETAMINE 02920691045 No Longer Active Ahmet Carbajal MD Active CHANTIX 1 MG TABS 1 twice a day to help quit smoking VARENICLINE TARTRATE 26526187254 No Longer Active Dipika Burgos MD Active CHANTIX STARTING MONTH EARNEST 0.5 MG X 11 & 1 MG X 42 TABS take as directed 2015 VARENICLINE TARTRATE 10197607108 No Longer Active Dipika Burgos MD Active TESSALON PERLES 100 MG CAP 1 to 2 tablets by mouth 3 times daily as needed for cough BENZONATATE 75594126774 No Longer Active Luigi Martínez APRN Active IMITREX 50 MG ORAL TABS 0.5 po x 1 PRN Headache. May repeat dose x 1 in 2 hours if needed SUMATRIPTAN SUCCINATE 90887469633 Active Ahmet Carbajal MD Active HYDROCODONE-ACETAMINOPHEN 5-325 MG TABS 1 to 2 four times a day as needed for pain use until can be seen by specialist HYDROCODONE- ACETAMINOPHEN 54815360393 No Longer Active Vishal Hui MD Active PROAIR HFA 108 (90 BASE) MCG/ACT AERS 2 puffs four times a day as needed 2015 ALBUTEROL SULFATE 40256735674 No Longer Active Vishal Hui MD Active PREDNISONE 20 MG TABS 2 daily for 5 days then 1 daily for 5 days PREDNISONE 88787269169 No Longer Active Vishal Hui MD Active ZITHROMAX Z-EARNEST 250 MG TABS 2 today and then 1 daily for 4 days AZITHROMYCIN 67041795435 No Longer Active Vishal Hui MD Active DICLOFENAC POTASSIUM TABS Take 1 tablet twice a day (pt. is not sure of the dose.) DICLOFENAC POTASSIUM TABS 01392645118 No Longer Active Vishal Hui MD Active VERAPAMIL HCL ER 120 MG ORAL CR-TABS Take 1 tablet by mouth twice a day. VERAPAMIL HCL 24700055242 Active Vishal Hui MD Active FLAGYL 500 MG TAB 1 tablet by mouth bid METRONIDAZOLE 62961824550 No Longer Active Vishal Hui MD Active VALIUM 5 MG TAB Take 1-2 tablets daily DIAZEPAM 65797886538 No Longer Active Fabiola Johnson APRN Active METOPROLOL TARTRATE 25 MG ORAL TABS 1/2 tablet twice daily for heart rate and blood pressure METOPROLOL TARTRATE 41049093706 No Longer Active Fabiola Johnson APRN Active MIRALAX ORAL POWD 17GMS DAILY IN WATER POLYETHYLENE GLYCOL 3350 54691088703 Active TAMARA Casey Active MIRALAX PACK 1 po qd PRN Constipation POLYETHYLENE GLYCOL 3350 42642211441 No Longer Active Ahmet Carbajal MD Active MINIPRESS 2 MG CAPS 4 cap po at night PRAZOSIN HCL 41952952678 No Longer Active Ahmet Carbajal MD Active PIROXICAM 20 MG CAPS 1 cap po qd PRN Pain PIROXICAM 54608236811 No Longer Active Ahemt Carbajal MD Active TRAMADOL HCL 50 MG TABS 1-2 po TID PRN Pain TRAMADOL HCL 25386422215 No Longer Active Ahmet Carbajal MD Active METOPROLOL TARTRATE 50 MG TAB 1 po bid METOPROLOL TARTRATE 55533586778 No Longer Active Ahmet Carbajal MD Active ABILIFY 15 MG ORAL TABS 1 tab daily ARIPIPRAZOLE 22043042437 No Longer Active Ahmet Carbajal MD Active PROZAC 20 MG ORAL CAPS 1 tab daily FLUOXETINE HCL 39415840904 No Longer Active Ahmet Carbajal MD Active AMBIEN 5 MG ORAL TABS 1 tab at bedtime ZOLPIDEM TARTRATE 74936252301 No Longer Active Ahmet Carbajal MD Active PREDNISONE 20 MG TAB 2 tabs daily for 4 days, 1 tab daily for 4 days, 1/2 tab daily for 4 days PREDNISONE 64064845420 No Longer Active Ahmet Carbajal MD Active KEFLEX 500 MG CAP 1 po TID x 10 days CEPHALEXIN 14028198150 No Longer Active Vishal Hui MD Active SAPHRIS 5 MG SUBL 1 po bid ASENAPINE MALEATE 12609100033 No Longer Active Luigi Martínez APRN Active LATUDA 80 MG TABS Take one by mouth daily LURASIDONE HCL 39737996986 No Longer Active Luigi Martínez APRN Active AMLODIPINE BESYLATE 5 MG TABS 1 tablet by mouth daily AMLODIPINE BESYLATE 91983277382 No Longer Active Luigi Martínez APRN Active AMITRIPTYLINE HCL 100 MG TAB one at hs AMITRIPTYLINE HCL 17131130949 No Longer Active Vishal Hui MD Active TRAZODONE HCL 100 MG TAB take 1 at bedtime TRAZODONE HCL 45148636126 No Longer Active Vishal Hui MD Active VYVANSE 40 MG CAPS 1 daily, LISDEXAMFETAMINE DIMESYLATE 05618388878 No Longer Active Vishal Hui MD Active IBUPROFEN 600 MG TAB 1 po TID PRN IBUPROFEN 48308996377 No Longer Active Vishal Hui MD Active PROZAC 20 MG CAP Take one by mouth daily FLUOXETINE HCL 39077457556 No Longer Active Vishal Hui MD Active BACTRIM DS 800-160 MG TABS 1 pill by mouth twice daily SULFAMETHOXAZOLE-TRIMETHOPRIM 30895128468 No Longer Active Sahara Rodriguez MD PhD Active DIFLUCAN 150 MG TAB 1 tablet by mouth daily FLUCONAZOLE 43624636285 No Longer Active Vishal Hui MD Active TIZANIDINE HCL 4 MG TABS 1 po q6hr PRN Muscle Spasm/Back Pain TIZANIDINE HCL 56994247123 Active TAMARA Casey Active CLINDAMYCIN HCL 150 MG CAPS 1 four times a day CLINDAMYCIN HCL 24651341273 No Longer Active Neeraj Collins MD Active KEFLEX 500 MG ORAL CAPS 1 cap QID by mouth CEPHALEXIN 02672082169 No Longer Active Neeraj Collins MD Active DIFLUCAN 150 MG TABS 1 pill every other day x 2 doses FLUCONAZOLE 21590077780 No Longer Active Sahara Rodriguez MD PhD Active MELATONIN 3 MG CAPS 2 po q hs MELATONIN 83191741249 No Longer Active Sahara Rodriguez MD PhD Active MULTIVITAMINS CAPS Take one by mouth daily MULTIPLE VITAMIN 06030690064 No Longer Active Sahara Rodriguez MD PhD Active BACTRIM DS 800-160 MG TAB 1 tab by mouth twice daily TRIMETHOPRIM-SULFAMETHOXAZOLE 60862232823 No Longer Active Sahara Rodriguez MD PhD Active [facility] PROBIOTIC ORAL CHEW 2 daily po PROBIOTIC PRODUCT 62146539193 No Longer Active Sahara Rodriguez MD PhD Active BACTRIM DS 800-160 MG TABS 1 po BID x 7 days SULFAMETHOXAZOLE-TRIMETHOPRIM 66423356469 No Longer Active Vishal Hui MD Active CHANTIX STARTING MONTH EARNEST 0.5 MG X 11 & 1 MG X 42 TABS 0.5mg daily for 3 days , then 0.5mg BID for 4 days, then 1mg BID VARENICLINE TARTRATE 24240526356 No Longer Active TAMARA Gray Active VERAPAMIL HCL CR 120 MG TAB CR 1 po bid VERAPAMIL HCL 14933180418 No Longer Active Vishal Hui MD Active METOPROLOL SUCCINATE 50 MG TB24 1 tablet by mouth daily METOPROLOL SUCCINATE 14921292589 No Longer Active Vishal Hui MD Active SAPHRIS 10 MG SUBL 1 tab po bid ASENAPINE MALEATE 72817427625 No Longer Active Vishal Hui MD Active LISINOPRIL 20 MG TABS 1 tab po qd LISINOPRIL 35260707454 No Longer Active Vishal Hui MD Active LATUDA 20 MG TABS Take one by mouth daily LURASIDONE HCL 39611953573 No Longer Active Vishal Hui MD Active TRAZODONE HCL 50 MG TABS 1/2 tab po qd prn for anxiety TRAZODONE HCL 22811684352 No Longer Active Vishal Hui MD Active OMEPRAZOLE 20 MG TBEC 1 po q a.m. 30min prior to first food intake OMEPRAZOLE 85415745735 Active Bertha Kirby, RMA Active RANITIDINE HCL 150 MG CAPS 1 twice a day RANITIDINE HCL 41079647846 Active Lynda Xiao SPECIAL DISTRIBUTION CLERK Active LINZESS 290 MCG CAPS Take one by mouth daily LINACLOTIDE 15834840134 No Longer Active Vishal Hui MD Active SAPHRIS 5 MG SUBL 1 tab po qd ASENAPINE MALEATE 77402558587 No Longer Active Vishal Hui MD Active ZALEPLON 10 MG CAPS 1 cap po every other night ZALEPLON 61303900006 No Longer Active Vishal Hui MD Active LYRICA 50 MG CAPS 1 tab po TID PREGABALIN 18690723786 No Longer Active Vishal Hui MD Active LORATADINE 10 MG TABS 1 tab po qd LORATADINE 73377064640 No Longer Active Vishal Hui MD Active VERAPAMIL HCL ER 180 MG CR-TABS 1 tab po bid VERAPAMIL HCL 99429577964 No Longer Active Vishal Hui MD Active MIRALAX POWD 1 capfull once daily POLYETHYLENE GLYCOL 3350 36597708877 No Longer Active Vishal Hui MD Active PREDNISONE 20 MG TABS 1 tab po qd PREDNISONE 25131705157 No Longer Active Renzo Thornton DO Active LEVOFLOXACIN 500 MG TABS 1 tab po qd LEVOFLOXACIN 96587942344 No Longer Active Renzo Thornton DO Active BUSPIRONE HCL 15 MG TABS 1 tab po TID BUSPIRONE HCL 78743448427 No Longer Active Renzo Thornton DO Active BENZTROPINE MESYLATE 1 MG TABS 1 tab po qd BENZTROPINE MESYLATE 44192593553 No Longer Active Renzo Thornton DO Active ATENOLOL 25 MG TABS 1 tab po qd ATENOLOL 92821072885 No Longer Active Renzo Thornton DO Active ESCITALOPRAM OXALATE 20 MG TABS 1 tab po qd ESCITALOPRAM OXALATE 01752262398 No Longer Active Renzo Thornton DO Active ADVAIR DISKUS 250-50 MCG/DOSE AEPB 1 puff BID FLUTICASONE-SALMETEROL 26124028212 No Longer Active Renzo Thornton DO Active PREDNISONE 20 MG TAB 2 tabs daily for 3 days, 1 tab daily for 3 days, 1/2 tab daily for 2 days PREDNISONE 10962155032 No Longer Active Vishal Hui MD Active CEFDINIR 300 MG CAPS by mouth twice a day CEFDINIR 92906722483 No Longer Active Vishal Hui MD Active LANSOPRAZOLE 30 MG CPDR 1 cap po qd LANSOPRAZOLE 06240585864 No Longer Active Vishal Hui MD Active BACLOFEN 20 MG TABS 1 tab po tid BACLOFEN 00514750780 No Longer Active Vishal Hui MD Active ADVAIR DISKUS 250-50 MCG/DOSE AEPB 1 puff BID ADVAIR DISKUS 250-50 MCG/DOSE AEPB FLUTICASONE-SALMETEROL Inactive ESCITALOPRAM OXALATE 20 MG TABS 1 tab po qd ESCITALOPRAM OXALATE 20 MG TABS 690858 ESCITALOPRAM OXALATE Inactive ATENOLOL 25 MG TABS 1 tab po qd ATENOLOL 25 MG TABS 800795 ATENOLOL Inactive BENZTROPINE MESYLATE 1 MG TABS 1 tab po qd BENZTROPINE MESYLATE 1 MG TABS 522923 BENZTROPINE MESYLATE Inactive BUSPIRONE HCL 15 MG TABS 1 tab po TID BUSPIRONE HCL 15 MG TABS 687551 BUSPIRONE HCL Inactive LEVOFLOXACIN 500 MG TABS 1 tab po qd LEVOFLOXACIN 500 MG TABS 807213 LEVOFLOXACIN Inactive PREDNISONE 20 MG TABS 1 tab po qd PREDNISONE 20 MG TABS 792813 PREDNISONE Inactive MIRALAX POWD 1 capfull once daily MIRALAX POWD 536465 POLYETHYLENE GLYCOL 3350 Inactive VERAPAMIL HCL ER 180 MG CR-TABS 1 tab po bid VERAPAMIL HCL ER 180 MG CR-TABS VERAPAMIL HCL Inactive LORATADINE 10 MG TABS 1 tab po qd LORATADINE 10 MG TABS 921511 LORATADINE Inactive LYRICA 50 MG CAPS 1 tab po TID LYRICA 50 MG CAPS PREGABALIN Inactive ZALEPLON 10 MG CAPS 1 cap po every other night ZALEPLON 10 MG CAPS 266521 ZALEPLON Inactive SAPHRIS 5 MG SUBL 1 tab po qd SAPHRIS 5 MG SUBL ASENAPINE MALEATE Inactive TRAZODONE HCL 50 MG TABS 1/2 tab po qd prn for anxiety TRAZODONE HCL 50 MG TABS 073591 TRAZODONE HCL Inactive LATUDA 20 MG TABS Take one by mouth daily LATUDA 20 MG TABS LURASIDONE HCL Inactive LISINOPRIL 20 MG TABS 1 tab po qd LISINOPRIL 20 MG TABS 195115 LISINOPRIL Inactive SAPHRIS 10 MG SUBL 1 [...] twice daily BACTRIM DS 800-160 MG TAB 825941 TRIMETHOPRIM-SULFAMETHOXAZOLE Inactive MULTIVITAMINS CAPS Take one by mouth daily MULTIVITAMINS CAPS MULTIPLE VITAMIN Inactive MELATONIN 3 MG CAPS 2 po q hs MELATONIN 3 MG CAPS 268822 MELATONIN Inactive KEFLEX 500 MG ORAL CAPS 1 cap QID by mouth KEFLEX 500 MG ORAL CAPS 608913 CEPHALEXIN Inactive CLINDAMYCIN HCL 150 MG CAPS 1 four times a day CLINDAMYCIN HCL 150 MG CAPS 278566 CLINDAMYCIN HCL Inactive DIFLUCAN 150 MG TAB 1 tablet by mouth daily DIFLUCAN 150 MG TAB 650029 FLUCONAZOLE Inactive PROZAC 20 MG CAP Take one by mouth daily PROZAC 20 MG CAP 896932 FLUOXETINE HCL Inactive IBUPROFEN 600 MG TAB 1 po TID PRN IBUPROFEN 600 MG TAB 516734 IBUPROFEN Inactive VYVANSE 40 MG CAPS 1 daily, VYVANSE 40 MG CAPS LISDEXAMFETAMINE DIMESYLATE Inactive TRAZODONE HCL 100 MG TAB take 1 at bedtime TRAZODONE HCL 100 MG TAB 796366 TRAZODONE HCL Inactive AMITRIPTYLINE HCL 100 MG TAB one at hs AMITRIPTYLINE HCL 100 MG TAB 603645 AMITRIPTYLINE HCL Inactive AMLODIPINE BESYLATE 5 MG TABS 1 tablet by mouth daily AMLODIPINE BESYLATE 5 MG TABS 716951 AMLODIPINE BESYLATE Inactive LATUDA 80 MG TABS Take one by mouth daily LATUDA 80 MG TABS LURASIDONE HCL Inactive SAPHRIS 5 MG SUBL 1 po bid SAPHRIS 5 MG SUBL ASENAPINE MALEATE Inactive PREDNISONE 20 MG TAB 2 tabs daily for 4 days, 1 tab daily for 4 days, 1/2 tab daily for 4 days PREDNISONE 20 MG TAB 253803 PREDNISONE Inactive AMBIEN 5 MG ORAL TABS 1 tab at bedtime AMBIEN 5 MG ORAL TABS 064405 ZOLPIDEM TARTRATE Inactive PROZAC 20 MG ORAL CAPS 1 tab daily PROZAC 20 MG ORAL CAPS 261591 FLUOXETINE HCL Inactive ABILIFY 15 MG ORAL TABS 1 tab daily ABILIFY 15 MG ORAL TABS 394559 ARIPIPRAZOLE Inactive METOPROLOL TARTRATE 50 MG TAB 1 po bid METOPROLOL TARTRATE 50 MG TAB 307106 METOPROLOL TARTRATE Inactive TRAMADOL HCL 50 MG TABS 1-2 po TID PRN Pain TRAMADOL HCL 50 MG TABS 015805 TRAMADOL HCL Inactive PIROXICAM 20 MG CAPS 1 cap po qd PRN Pain PIROXICAM 20 MG CAPS 917379 PIROXICAM Inactive MINIPRESS 2 MG CAPS 4 cap po at night MINIPRESS 2 MG CAPS 602947 PRAZOSIN HCL Inactive MIRALAX PACK 1 po qd PRN Constipation MIRALAX PACK 848583 POLYETHYLENE GLYCOL 3350 Inactive METOPROLOL TARTRATE 25 MG ORAL TABS 1/2 tablet twice daily for heart rate and blood pressure METOPROLOL TARTRATE 25 MG ORAL TABS 344852 METOPROLOL TARTRATE Inactive VALIUM 5 MG TAB Take 1-2 tablets daily VALIUM 5 MG TAB 441822 DIAZEPAM Inactive FLAGYL 500 MG TAB 1 tablet by mouth bid FLAGYL 500 MG TAB 353039 METRONIDAZOLE Inactive DICLOFENAC POTASSIUM TABS Take 1 tablet twice a day (pt. is not sure of the dose.) DICLOFENAC POTASSIUM TABS DICLOFENAC POTASSIUM TABS Inactive ZITHROMAX Z-EARNEST 250 MG TABS 2 today and then 1 daily for 4 days ZITHROMAX Z-EARNEST 250 MG TABS 2816120 AZITHROMYCIN Inactive PREDNISONE 20 MG TABS 2 daily for 5 days then 1 daily for 5 days PREDNISONE 20 MG TABS 659239 PREDNISONE Inactive PROAIR HFA 108 (90 BASE) MCG/ACT AERS 2 puffs four times a day as needed 2015 PROAIR HFA 108 (90 BASE) MCG/ACT AERS ALBUTEROL SULFATE Inactive HYDROCODONE-ACETAMINOPHEN 5-325 MG TABS 1 to 2 four times a day as needed for pain use until can be seen by specialist HYDROCODONE- ACETAMINOPHEN 5-325 MG TABS 494924 HYDROCODONE-ACETAMINOPHEN Inactive TESSALON PERLES 100 MG CAP 1 to 2 tablets by mouth 3 times daily as needed for cough TESSALON PERLES 100 MG CAP 057467 BENZONATATE Inactive CHANTIX STARTING MONTH EARNEST 0.5 [...] Pain 2015 DICLOFENAC SODIUM 50 MG TBEC 188599 DICLOFENAC SODIUM Inactive TOPAMAX 50 MG ORAL TABS 1 tab twice daily TOPAMAX 50 MG ORAL TABS 251153 TOPIRAMATE Inactive VIIBRYD 10 MG ORAL TABS Take 1 tablet once a day VIIBRYD 10 MG ORAL TABS VILAZODONE HCL Inactive LEVOFLOXACIN 500 MG ORAL TABS po daily LEVOFLOXACIN 500 MG ORAL TABS 952309 LEVOFLOXACIN Inactive METHYLPREDNISOLONE 4 MG ORAL TABS po daily METHYLPREDNISOLONE 4 MG ORAL TABS 184275 METHYLPREDNISOLONE Inactive OXYCODONE HCL ER 10 MG ORAL T12A 1/2 tab by mouth every 4 hours prn OXYCODONE HCL ER 10 MG ORAL T12A OXYCODONE HCL Inactive FLAGYL 500 MG TAB 1 tablet by mouth bid FLAGYL 500 MG TAB 131503 METRONIDAZOLE Inactive MONISTAT 7 COMBO PACK WOODROW 100 & 2 MG-% (9GM) VAG KIT 1 applicatorful per vagina q pm x 7 MONISTAT 7 COMBO PACK WOODROW 100 & 2 MG-% (9GM) VAG KIT MICONAZOLE NITRATE Inactive BACTRIM DS 800-160 MG TABS 1 twice a day BACTRIM DS 800-160 MG TABS 421640 SULFAMETHOXAZOLE-TRIMETHOPRIM Inactive TRAMADOL HCL 50 MG TABS 1/2-1 tab TID PRN TRAMADOL HCL 50 MG TABS 161603 TRAMADOL HCL Inactive ABILIFY MAINTENA 400 MG IM SUSR 400mg injection every 26 days ABILIFY MAINTENA 400 MG IM SUSR ARIPIPRAZOLE Inactive KLONOPIN 1 MG ORAL TABS 1 tab po TID KLONOPIN 1 MG ORAL TABS 450942 CLONAZEPAM Inactive ADVAIR DISKUS 250-50 MCG/DOSE INH AEPB 1 puff twice a day for asthma ADVAIR DISKUS 250-50 MCG/DOSE INH AEPB FLUTICASONE- SALMETEROL Inactive BENADRYL 25 MG CAP 4 po at bedtime for insomnia BENADRYL 25 MG CAP DIPHENHYDRAMINE HCL Inactive PREDNISONE 20 MG TABS 2 daily for 5 days then 1 daily for 5 days PREDNISONE 20 MG TABS 709644 PREDNISONE Inactive HYDROCODONE-ACETAMINOPHEN 5-325 MG ORAL TABS 1 tab two times a day HYDROCODONE-ACETAMINOPHEN 5-325 MG ORAL TABS 103304 HYDROCODONE-ACETAMINOPHEN Inactive ZITHROMAX Z-EARNEST 250 MG TABS 2 today and then 1 daily for 4 days ZITHROMAX Z-EARNEST 250 MG TABS 6472544 AZITHROMYCIN Inactive GUAIFENESIN-CODEINE 100-10 MG/5ML SYRP 5ml every 4 to 6 hours as needed for cough GUAIFENESIN-CODEINE 100-10 MG/5ML SYRP 925289 GUAIFENESIN-CODEINE Inactive HALOPERIDOL 10 MG ORAL TABS 1 tab q.d HALOPERIDOL 10 MG ORAL TABS 844150 HALOPERIDOL Inactive ASPIRIN 325 MG ORAL TABS 1 tab q.d ASPIRIN 325 MG ORAL TABS 739063 ASPIRIN Inactive FLUTICASONE PROPIONATE 50 MCG/ACT SUSP 2 sprays each nostril daily before bed. FLUTICASONE PROPIONATE 50 MCG/ACT SUSP 0081107 FLUTICASONE PROPIONATE Inactive ZOFRAN 4 MG TABS 1 po q6hr PRN Nausea ZOFRAN 4 MG TABS 871807 ONDANSETRON HCL Inactive KEFLEX 500 MG CAP 1 po qid KEFLEX 500 MG CAP 344952 CEPHALEXIN Inactive ACETAMINOPHEN-CODEINE 120-12 MG/5ML SOLN 5 ml by mouth every 4-6 hours if needed for cough ACETAMINOPHEN-CODEINE 120-12 MG/5ML SOLN 126538 ACETAMINOPHEN-CODEINE Inactive PREDNISONE 20 MG TAB 1 tablet daily x 4 days PREDNISONE 20 MG TAB 353310 PREDNISONE Inactive TROPICAMIDE 0.5 % OPHTH SOLN 1 drop PRN eye spasms TROPICAMIDE 0.5 % OPHTH SOLN 908833 TROPICAMIDE Inactive LEVAQUIN 500 MG TABS 1 daily for infection LEVAQUIN 500 MG TABS 478221 LEVOFLOXACIN Inactive PREDNISONE 10 MG TABS 2 daily for 5 days then 1 daily for 5 days PREDNISONE 10 MG TABS 361811 PREDNISONE Inactive EQ NICOTINE 21 MG/24HR TRANS PT24 Apply daily to stop smoking EQ NICOTINE 21 MG/24HR TRANS PT24 NICOTINE Inactive DIFLUCAN 150 MG TABS 1 by mouth for yeast DIFLUCAN 150 MG TABS 659952 FLUCONAZOLE Inactive BACTRIM DS 800-160 MG TABS 1 twice a day BACTRIM DS 800-160 MG TABS [id number] SULFAMETHOXAZOLE-TRIMETHOPRIM Inactive TESSALON PERLES 100 MG CAPS 1 three times a day as needed for cough TESSALON PERLES 100 MG CAPS 735861 BENZONATATE Inactive AMITIZA 8 MCG ORAL CAPS [...] twice a day MUPIROCIN 2 % OINT 808807 MUPIROCIN Inactive CEFDINIR 300 MG CAPS by mouth twice a day CEFDINIR 300 MG CAPS 709135 CEFDINIR Inactive PREDNISONE 20 MG TAB 2 tabs daily for 3 days, 1 tab daily for 3 days, 1/2 tab daily for 2 days PREDNISONE 20 MG TAB 524552 PREDNISONE Inactive BACTRIM DS 800-160 MG TABS [...] x 10 days KEFLEX 500 MG CAP 164712 CEPHALEXIN Inactive Advance Directives Directive Description Start [...] % 11.0-15.0 platelet count 443 THOUSAND/UL 10*3/mm3 643-623 3104/03/01 mean platelet volume 8.2 fL 7.5-12.5 leukocyte [...] % 11.0-15.0 platelet count 349 THOUSAND/UL 10*3/mm3 477-125 4628/04/12 mean platelet volume 8.4 fL 7.5-12.5 Lab [...] 369 10^3/MM^3 10*3/mm3 142-424 Lab Report: Chlamydia/GC [id number] - Lab chlamydia DNA probe NOT DETECTED NOT DETECTED Lab Report: Chlamydia/GC APTIMA/74361 - Microbiology Neisseria gonorrhoeae DNA probe NOT DETECTED NOT DETECTED Lab Report: Chlamydia/GC APTIMA/84764, Urinalysis, Complete, with Reflex ... - Lab chlamydia DNA probe NOT DETECTED NOT DETECTED Lab Report: Chlamydia/GC APTIMA/22713, Urinalysis, Complete, with Reflex ... - Microbiology Neisseria gonorrhoeae DNA probe NOT DETECTED NOT DETECTED Lab Report: Chlamydia/GC APTIMA/94305, Urinalysis, Complete, with Reflex ... - Urinalysis microalbumin/total urine volume 2 mg/L Units converted. See lab report for original value. microalbumin/creatinine ratio, urine 9 MCG/MG CREAT mg/L <30 Lab Report: Comp. Metabolic Panel - Chemistry sodium, serum 140 mmol/L [phone]/08/08 carbon dioxide, venous blood 33.7 mmol/L 21.0-32.0 potassium, serum 5.0 mmol/L 3.5-5.2 chloride, serum 103 mmol/L 98-107 blood glucose 80 mg/dL 65-110 urea nitrogen, blood 13 mg/dL 7-18 creatinine, serum 0.88 mg/dL 0.55-1.30 alanine aminotransferase (SGPT), serum 54 U/L 12-78 aspartate aminotransferase (SGOT), serum 29 U/L 15-37 calcium, serum 9.7 mg/dL 8.5-10.1 bilirubin, serum, total 0.30 mg/dL 0.00-1.00 sodium, serum 140 mmol/L 551-264 5802/06/28 carbon dioxide, venous blood 23.8 mmol/L 21.0-32.0 [...] 5.0-8.5 Encounters Code Encounter Date Provider Facility CPT-84326 Level 3 Est. Patient 15:55:20 [facility] Patient 10:49:34 CDT [facility] CPT-55523 Level 3 Est. [facility]00[facility] 10:29:30 [facility] Level 3 Est. Patient 11:04:38 CDT Renzo Thornton [facility] CPT-28841 Level 3 Est. Patient 11:15:58 ANIMAL MAINTENANCE SUPERVISOR Renzo Thornton [facility] CPT-19753 Level 3 Est. Patient 15:28:23 ANIMAL MAINTENANCE SUPERVISOR Suzan Boo [facility] CPT-68746 Level 4 Est. Patient 10:20:54 ANIMAL MAINTENANCE SUPERVISOR Suzan Boo [facility] CPT-24593 Level 3 Est. Patient 11:47:37 ANIMAL MAINTENANCE SUPERVISOR Ahmet Carbajal MD [facility] CPT-39439 Level 3 Est. Patient 10:40:11 ANIMAL MAINTENANCE SUPERVISOR Ahmet Carbajal MD [facility] CPT-46655 Level 3 Est. Patient 15:07:06 ANIMAL MAINTENANCE SUPERVISOR Neeraj Collins MD [facility] CPT-05476 Level 4 Est. Patient 14:45:00 ANIMAL MAINTENANCE SUPERVISOR Ahmet Carbajal MD [facility] CPT-93979 Level 3 Est. Patient 13:59:59 CDT Luigi Martínez [facility]-66867 Level 3 Est. Patient 18:18:53 CDT Neeraj Collins MD [facility] CPT-55203 Level 3 Est. Patient 15:50:44 CDT Vishal Hui MD [facility] CPT-91873 Level 3 Est. Patient 11:36:17 CDT Ahmet Carbajal MD [facility] CPT-50156 Level 3 Est. Patient 13:29:16 CDT Vishal Hui MD [facility] CPT-55655 Level 3 Est. Patient 14:27:52 CDT Neeraj Collins MD [facility] CPT-31720 Level 3 Est. Patient 08:56:03 CDT Luigi Martínez [facility] CPT-88103 Level 4 Est. Patient 12:11:48 CDT Fabiola Johnson [facility] CPT-61325 Level 3 New Patient 16:53:37 CDT Albert Caldera MD [facility] CPT-36429 Level 3 Est. Patient 11:25:49 CDT Renzo Thornton DO [facility] CPT-56299 Level 3 Est. Patient 15:22:01 CDT Ahmet Carbajal MD [facility] CPT-47957 Level 4 Est. Patient 09:00:51 ANIMAL MAINTENANCE SUPERVISOR Vishal Hui MD [facility] CPT-67971 Level 3 Est. Patient 11:37:33 ANIMAL MAINTENANCE SUPERVISOR Vishal Hui MD [facility] CPT-76724 Level 3 Est. Patient 08:41:09 ANIMAL MAINTENANCE SUPERVISOR Vishal Hui MD [facility] CPT-28534 Level 4 Est. Patient 10:19:35 ANIMAL MAINTENANCE SUPERVISOR Vishal Hui MD [facility] CPT-84884 Level 3 Est. Patient 13:35:45 CDT Vishal Hui MD [facility] CPT-98060 Level 4 Est. Patient 10:08:37 CDT Vishal Hui MD [facility] CPT-50114 Level 3 Est. Patient 11:22:10 CDT Vishal Hui MD [facility] CPT-73689 Level 3 Est. Patient 11:03:32 CDT Sahara Rodriguez MD [facility]-35588 Level 3 Est. Patient 09:41:35 CDT Vishal Hui MD [facility]-67140 Level 3 Est. Patient 12:00:41 CDT Neeraj Collins MD [facility]-72248 Level 3 Est. Patient 09:16:24 CDT Vishal Hui MD [facility] CPT-18240 Level 4 Est. Patient 13:59:09 CDT Neeraj Collins MD [facility]-27703 Level 3 Est. Patient 15:19:43 CDT Renzo Thornton DO [facility] CPT-68049 Level 3 Est. Patient 18:10:26 CDT Sahara Rodriguez MD [facility]-38074 Level 3 Est. Patient 14:49:50 CDT Vishal Hui MD [facility] CPT-27902 Level 4 Est. Patient 18:41:46 CDT Neeraj Collins MD [facility]-52933 Level 4 Est. Patient 09:18:38 ANIMAL MAINTENANCE SUPERVISOR Vishal Hui MD [facility] CPT-07722 Level 3 Est. Patient 14:43:55 ANIMAL MAINTENANCE SUPERVISOR Vishal Hui MD [facility] CPT-86990 Level 3 Est. Patient 15:26:33 ANIMAL MAINTENANCE SUPERVISOR Sahara Rodriguez MD [facility] CPT-86320 Level 3 Est. Patient 10:32:14 ANIMAL MAINTENANCE SUPERVISOR Vishal Hui MD [facility]-62654 Level 3 Est. Patient 15:12:52 ANIMAL MAINTENANCE SUPERVISOR Vishal Hui MD [facility] CPT-94531 Level 4 Est. Patient 09:19:27 CDT Vishal Hui MD [facility]-09644 Level 3 Est. Patient 15:53:00 CDT Renzo Thornton [facility] CPT-35234 Level 3 Est. Patient 15:50:30 CDT Renzo Thornton [facility] CPT-76171 Level 3 Est. Patient 16:55:24 CDT Vishal Hui MD [facility] Procedures Code Procedure Name Date Entry Date Standard Description CPT-97859 EKG Trac and Interp - XRAY USE ONLY 15:59:30 CDT 09/13 CPT-25796 Chest 1V Frontal - XRAY USE ONLY 15:59:30 CDT CPT-34607 Venipuncture Draw Fee 15:44:02 CDT CPT-19528 Venipuncture Draw Fee 08:41:12 CDT CPT-10702 Abd compl w upright - XRAY USE ONLY 10:27:59 CDT 06/28 CPT-69476 Smoking Cessation counseling 11:15:58 ANIMAL MAINTENANCE SUPERVISOR CPT-G0439 Subsequent Annual Wellness Exam 09:30:58 ANIMAL MAINTENANCE SUPERVISOR CPT-60702 TSH - LAB USE ONLY 08:50:26 ANIMAL MAINTENANCE SUPERVISOR CPT-30012 CBC - LAB USE ONLY 08:50:26 ANIMAL MAINTENANCE SUPERVISOR CPT-25650 Venipuncture Draw Fee 08:50:26 ANIMAL MAINTENANCE SUPERVISOR CPT-91514 Abx/Therapy Injection 17:34:30 ANIMAL MAINTENANCE SUPERVISOR CPT-39533 Nexplanon Removal with Reinsertion 14:09:32 CDT CPT-J7307 Nexplanon (Implant) 14:09:32 CDT CPT-OV Office Visit 14:09:32 CDT CPT-48089 UA w micro - LAB USE ONLY 16:21:13 CDT CPT-37816 Wet Mount - LAB USE ONLY 16:21:13 CDT CPT-59393 First Vx - Ix admin for Medicare patients 14:37:47 CDT CPT-83409 Fluzone Preservative Free Intramuscular Suspension 14:37 :47 CDT CPT-27284 Abx/Therapy Injection 13:54:22 CDT CPT-83502 Abx/Therapy Injection 08:47:09 CDT CPT-85561 Abx/Therapy Injection 13:29:56 CDT CPT-23455 Abx/Therapy Injection 08:36:16 CDT CPT-23174 Wet Mount - LAB USE ONLY 17:44:58 CDT CPT-40215 UA w micro - LAB USE ONLY 17:44:58 CDT CPT-82313 CMP - LAB USE ONLY 17:44:58 CDT CPT-95380 Venipuncture Draw Fee 17:44:58 CDT CPT-84971 Cervical Min 4V - XRAY USE ONLY 09:01:40 CDT CPT-80830 Chest 2V Frontal and Lat - XRAY USE ONLY 11:06:31 CDT CPT-69845 EKG Trac and Interp - XRAY USE ONLY 11:31:43 CDT 08/26 CPT-J3420 Vitamin B12 1000mcg (Cyanocobalamin) 08:10:26 ANIMAL MAINTENANCE SUPERVISOR 04/12 CPT-43674 Abx/Therapy Injection 08:10:26 ANIMAL MAINTENANCE SUPERVISOR CPT-G0438 Initial Annual Wellness Exam 19:01:01 ANIMAL MAINTENANCE SUPERVISOR CPT-J3420 Vitamin B12 1000mcg (Cyanocobalamin) 16:57:46 CDT 08/14 CPT-86595 Recombivax HB Injection Suspension 5 MCG/0.5ML 08:37:50 ANIMAL MAINTENANCE SUPERVISOR CPT-67094 Immunization Single Admin 08:37:50 ANIMAL MAINTENANCE SUPERVISOR CPT-J3420 Vitamin B12 1000mcg (Cyanocobalamin) 08:32:16 ANIMAL MAINTENANCE SUPERVISOR 03/11 CPT-94579 Abx/Therapy Injection 08:32:16 ANIMAL MAINTENANCE SUPERVISOR CPT-72478 Chest 2V Frontal and Lat 11:46:38 ANIMAL MAINTENANCE SUPERVISOR CPT-41957 Venipuncture Draw Fee 09:12:45 ANIMAL MAINTENANCE SUPERVISOR CPT-J3420 Vitamin B12 1000mcg (Cyanocobalamin) 08:50:15 ANIMAL MAINTENANCE SUPERVISOR 02/08 CPT-84929 Abx/Therapy Injection 08:50:15 ANIMAL MAINTENANCE SUPERVISOR CPT-Cryo Cryotherapy 10:19:35 ANIMAL MAINTENANCE SUPERVISOR CPT-000 Give Appropriate Flu Vaccine 09:22:16 CDT CPT-J3420 Vitamin B12 1000mcg (Cyanocobalamin) 19:08:57 CDT 01/11 CPT-92980 Abx/Therapy Injection 19:08:57 CDT CPT-J3420 Vitamin B12 1000mcg (Cyanocobalamin) 08:19:08 CDT 12/11 CPT-41690 Abx/Therapy Injection 08:19:08 CDT CPT-J3420 Vitamin B12 1000mcg (Cyanocobalamin) 14:48:00 CDT 11/09 CPT-80043 Abx/Therapy Injection 14:47:59 CDT CPT-J3420 Vitamin B12 1000mcg (Cyanocobalamin) 08:34:04 CDT 10/09 CPT-19766 Abx/Therapy Injection 08:34:04 CDT CPT-J3420 Vitamin B12 1000mcg (Cyanocobalamin) 09:18:52 CDT 09/11 CPT-95311 Abx/Therapy Injection 09:18:52 CDT CPT-J3420 Vitamin B12 1000mcg (Cyanocobalamin) 08:35:44 CDT 09/04 CPT-18407 Abx/Therapy Injection 08:35:44 CDT CPT-97469 Immunization Single Admin 11:07:16 CDT CPT-90970 Hepatitis B adult IM 11:07:16 CDT CPT-J3420 Vitamin B12 1000mcg (Cyanocobalamin) 11:00:49 CDT 08/28 CPT-J1040 Depo Medrol 80 mg (Methyl Prednisolone Acetate) 11:00: 49 CDT CPT-39291 Abx/Therapy Injection 11:00:49 CDT CPT-J1040 Depo Medrol 80 mg (Methyl Prednisolone Acetate) 09:16: 23 CDT CPT-J3420 Vitamin B12 1000mcg (Cyanocobalamin) 08:27:05 CDT 08/20 CPT-72198 Abx/Therapy Injection 08:27:05 CDT CPT-71576 Recombivax HB Injection Suspension 5 MCG/0.5ML 10:00:41 CDT CPT-65593 Administration single or combination vaccine inc oral 10 :00:41 CDT CPT-62876 Sono transvag pelvis non OB uterus ovaries cervix 16:36: 57 CDT CPT-45616 LS spine comp w obliq 09:50:55 ANIMAL MAINTENANCE SUPERVISOR CPT-92527 Abd compl w upright 09:50:55 ANIMAL MAINTENANCE SUPERVISOR CPT-J1100 Decadron 4mg (Dexamethasone) 15:51:24 ANIMAL MAINTENANCE SUPERVISOR CPT-J1030 Depo Medrol 40 mg (Methyl Prednisolone Acetate) 15:51: 24 ANIMAL MAINTENANCE SUPERVISOR CPT-08142 Abx/Therapy Injection 15:51:24 ANIMAL MAINTENANCE SUPERVISOR CPT-J1100 Decadron 4mg (Dexamethasone) 15:26:33 ANIMAL MAINTENANCE SUPERVISOR CPT-J1030 Depo Medrol 40 mg (Methyl Prednisolone Acetate) 15:26: 33 ANIMAL MAINTENANCE SUPERVISOR CPT-15002 Sono retroperitoneal complete kidneys and bladder 17:15: 30 CDT CPT-77463 Abd compl w upright 16:09:25 CDT CPT-J1100 Decadron 8mg (Dexamethasone) 17:07:57 CDT CPT-32166 Abx/Therapy Injection 17:07:57 CDT CPT-J1100 Decadron 8mg (Dexamethasone) 16:55:24 CDT CPT-15493 Chest 2V Frontal and Lat 16:32:44 CDT
--- OUTSIDE RECORDS SUMMARY | 2016-11-04 19:51 | XMS REPORT | Clinical Summary ---
Author Author Admin, E Organization [facility] [employer] Address Unknown Phone Unavailable Allergies, Adverse Reactions, [...] breath Nocturnal hypoxia 799.02 Active Fabiola Johnson [employer]OWER WATCHMAN Hypoxemia Neck pain 723.1 Resolved Vishal Hui [...] each nostril daily for allergies FLUTICASONE PROPIONATE 23274279884 Active Tila Valenzuela Active GUAIFENESIN-CODEINE 100-10 MG/5ML SYRP 5ml every 4 to 6 hours as needed for cough GUAIFENESIN-CODEINE 22727974598 Active Ahmet Carbajal MD Active PREDNISONE 20 MG TABS 2 daily for 5 days then 1 daily for 5 days PREDNISONE 86398994484 Active Ahmet Carbajal MD Active LAMICTAL 100 MG ORAL TABS 1 tab q.d LAMOTRIGINE 93338297631 Active Ahmet Carbajal MD Active BENADRYL 25 MG CAP 4 po at bedtime for insomnia DIPHENHYDRAMINE HCL 13310930874 No Longer Active Ahmet Carbajal MD Active ADVAIR DISKUS 250-50 MCG/DOSE INH AEPB 1 puff twice a day for asthma FLUTICASONE-SALMETEROL 72182024552 No Longer Active Ahmet Carbajal MD Active KLONOPIN 1 MG ORAL TABS 1 tab po TID CLONAZEPAM 70935005594 No Longer Active Ahmet Carbajal MD Active ABILIFY MAINTENA 400 MG IM SUSR 400mg injection every 26 days ARIPIPRAZOLE 23011656082 No Longer Active Ahmet Carbajal MD Active HALOPERIDOL 10 MG ORAL TABS 1 tab q.d HALOPERIDOL 01764782782 Active Ahmet Carbajal MD Active ASPIRIN 325 MG ORAL TABS 1 tab q.d ASPIRIN 99588110387 Active Ahmet Carbajal MD Active HYDROCODONE-ACETAMINOPHEN 5-325 MG ORAL TABS 1 tab two times a day HYDROCODONE-ACETAMINOPHEN 81849578937 Active Ahmet Carbajal MD Active TRAMADOL HCL 50 MG TABS 1/2-1 tab TID PRN TRAMADOL HCL 73899000872 No Longer Active Ahmet Carbajal MD Active BACTRIM DS 800-160 MG TABS 1 twice a day SULFAMETHOXAZOLE- TRIMETHOPRIM 44737974516 No Longer Active Ahmet Carbajal MD Active PROAIR HFA 108 (90 BASE) MCG/ACT AERS 2 puffs four times a day as needed 2015 ALBUTEROL SULFATE 02089005605 Active Ahmet Carbajal MD Active EQ NICOTINE 21 MG/24HR TRANS PT24 Apply daily to stop smoking NICOTINE 40325378702 Active Ahmet Carbajal MD Active MONISTAT 7 COMBO PACK WOODROW 100 & 2 MG-% (9GM) VAG KIT 1 applicatorful per vagina q pm x 7 MICONAZOLE NITRATE 09233293958 No Longer Active Ahmet Carbajal MD Active FLAGYL 500 MG TAB 1 tablet by mouth bid METRONIDAZOLE 85844680810 No Longer Active Ahmet Carbajal MD Active OXYCODONE HCL ER 10 MG ORAL T12A 1/2 tab by mouth every 4 hours prn OXYCODONE HCL 82145547778 No Longer Active Ahmet Carbajal MD Active METHYLPREDNISOLONE 4 MG ORAL TABS po daily METHYLPREDNISOLONE 46002140019 No Longer Active Ahmet Carbajal MD Active LEVOFLOXACIN 500 MG ORAL TABS po daily LEVOFLOXACIN 59928978415 No Longer Active Ahmet Carbajal MD Active VIIBRYD 10 MG ORAL TABS Take 1 tablet once a day VILAZODONE HCL 26425486136 No Longer Active Ahmet Carbajal MD Active TOPAMAX 50 MG ORAL TABS 1 tab twice daily TOPIRAMATE 14514437135 No Longer Active Ahmet Carbajal MD Active DICLOFENAC SODIUM 50 MG TBEC 1 tablet by mouth four times daily PRN Pain 2015 DICLOFENAC SODIUM 71899512471 No Longer Active Ahmet Carbajal MD Active ADZENYS XR-ODT 6.3 MG ORAL TBED 1 tab po daily for ADHD AMPHETAMINE 69676404843 No Longer Active Ahmet Carbajal MD Active CHANTIX 1 MG TABS 1 twice a day to help quit smoking VARENICLINE TARTRATE 40042693428 No Longer Active Dipika Burgos MD Active CHANTIX STARTING MONTH EARNEST 0.5 MG X 11 & 1 MG X 42 TABS take as directed 2015 VARENICLINE TARTRATE 79502608141 No Longer Active Dipika Burgos MD Active TESSALON PERLES 100 MG CAP 1 to 2 tablets by mouth 3 times daily as needed for cough BENZONATATE 91501890825 No Longer Active Luigi Martínez TOWER WATCHMAN Active IMITREX 50 MG ORAL TABS 0.5 po x 1 PRN Headache. May repeat dose x 1 in 2 hours if needed SUMATRIPTAN SUCCINATE 04302386275 Active TAMARA Casey Active HYDROCODONE-ACETAMINOPHEN 5-325 MG TABS 1 to 2 four times a day as needed for pain use until can be seen by specialist HYDROCODONE- ACETAMINOPHEN 87296222061 No Longer Active Vishal Hui MD Active PROAIR HFA 108 (90 BASE) MCG/ACT AERS 2 puffs four times a day as needed 2015 ALBUTEROL SULFATE 38415233704 No Longer Active Vishal Hui MD Active PREDNISONE 20 MG TABS 2 daily for 5 days then 1 daily for 5 days PREDNISONE 70129197677 No Longer Active Vishal Hui MD Active ZITHROMAX Z-ERANEST 250 MG TABS 2 today and then 1 daily for 4 days AZITHROMYCIN 25494846549 No Longer Active Vishal Hui MD Active DICLOFENAC POTASSIUM TABS Take 1 tablet twice a day (pt. is not sure of the dose.) DICLOFENAC POTASSIUM TABS 36657294665 No Longer Active Vishal Hui MD Active VERAPAMIL HCL ER 120 MG ORAL CR-TABS Take 1 tablet by mouth twice a day. VERAPAMIL HCL 91142709155 Active Vishal Hui MD Active FLAGYL 500 MG TAB 1 tablet by mouth bid METRONIDAZOLE 45374755353 No Longer Active Vishal Hui MD Active FLUTICASONE PROPIONATE 50 MCG/ACT SUSP 2 sprays each nostril daily before bed. FLUTICASONE PROPIONATE 27280357522 Active Fabiola Johnson APRN Active VALIUM 5 MG TAB Take 1-2 tablets daily DIAZEPAM 57258898453 No Longer Active Fabiola Johnson APRN Active METOPROLOL TARTRATE 25 MG ORAL TABS 1/2 tablet twice daily for heart rate and blood pressure METOPROLOL TARTRATE 13878646325 No Longer Active Fabiola Johnson APRN Active MIRALAX ORAL POWD 17GMS DAILY IN WATER POLYETHYLENE GLYCOL 3350 62047267543 Active Vishal Hui MD Active MIRALAX PACK 1 po qd PRN Constipation POLYETHYLENE GLYCOL 3350 87050937079 No Longer Active Ahmet Carbajal MD Active MINIPRESS 2 MG CAPS 4 cap po at night PRAZOSIN HCL 75400775206 No Longer Active Ahmet Carbajal MD Active PIROXICAM 20 MG CAPS 1 cap po qd PRN Pain PIROXICAM 10631507307 No Longer Active Ahmet Carbajal MD Active TRAMADOL HCL 50 MG TABS 1-2 po TID PRN Pain TRAMADOL HCL 08366425423 No Longer Active Ahmet Carbajal MD Active METOPROLOL TARTRATE 50 MG TAB 1 po bid METOPROLOL TARTRATE 86419397147 No Longer Active Ahmet Carbajal MD Active ABILIFY 15 MG ORAL TABS 1 tab daily ARIPIPRAZOLE 33180354546 No Longer Active Ahmet Carbajal MD Active PROZAC 20 MG ORAL CAPS 1 tab daily FLUOXETINE HCL 17726353409 No Longer Active Ahmet Carbajal MD Active AMBIEN 5 MG ORAL TABS 1 tab at bedtime ZOLPIDEM TARTRATE 33764640380 No Longer Active Ahmet Carbajal MD Active PREDNISONE 20 MG TAB 2 tabs daily for 4 days, 1 tab daily for 4 days, 1/2 tab daily for 4 days PREDNISONE 77443434534 No Longer Active Ahmet Carbajal MD Active KEFLEX 500 MG CAP 1 po TID x 10 days CEPHALEXIN 11599918634 No Longer Active Vishal Hui MD Active SAPHRIS 5 MG SUBL 1 po bid ASENAPINE MALEATE 73038726692 No Longer Active Jillina Fralebron TOWER WATCHMAN Active LATUDA 80 MG TABS Take one by mouth daily LURASIDONE HCL 07211072346 No Longer Active Jillina Fradwightl TOWER WATCHMAN Active AMLODIPINE BESYLATE 5 MG TABS 1 tablet by mouth daily AMLODIPINE BESYLATE 61974442067 No Longer Active Jillina Mauricio TOWER WATCHMAN Active AMITRIPTYLINE HCL 100 MG TAB one at hs AMITRIPTYLINE HCL 66334588636 No Longer Active Vishal Hui MD Active TRAZODONE HCL 100 MG TAB take 1 at bedtime TRAZODONE HCL 03966881839 No Longer Active Vishal Hui MD Active VYVANSE 40 MG CAPS 1 daily, LISDEXAMFETAMINE DIMESYLATE 62074510880 No Longer Active Vishal Hui MD Active IBUPROFEN 600 MG TAB 1 po TID PRN IBUPROFEN 37125551069 No Longer Active Vishal Hui MD Active PROZAC 20 MG CAP Take one by mouth daily FLUOXETINE HCL 33673727799 No Longer Active Vishal Hui MD Active ZOFRAN 4 MG TABS 1 po q6hr PRN Nausea ONDANSETRON HCL Active Vishal Hui MD Active BACTRIM DS 800-160 MG TABS 1 pill by mouth twice daily SULFAMETHOXAZOLE-TRIMETHOPRIM 66866311960 No Longer Active Sahara Rodriguez MD PhD Active DIFLUCAN 150 MG TAB 1 tablet by mouth daily FLUCONAZOLE 42674925421 No Longer Active Vishal Hui MD Active TIZANIDINE HCL 4 MG TABS 1 po q6hr PRN Muscle Spasm/Back Pain TIZANIDINE HCL 87271116578 Active Vishal Hui MD Active CLINDAMYCIN HCL 150 MG CAPS 1 four times a day CLINDAMYCIN HCL 21538598877 No Longer Active Neeraj Collins MD Active KEFLEX 500 MG ORAL CAPS 1 cap QID by mouth CEPHALEXIN 10415855221 No Longer Active Neeraj Collins MD Active DIFLUCAN 150 MG TABS 1 pill every other day x 2 doses FLUCONAZOLE 27629671227 No Longer Active Sahara Rodriguez MD PhD Active MELATONIN 3 MG CAPS 2 po q hs MELATONIN 27076018387 No Longer Active Sahara Rodriguez MD PhD Active MULTIVITAMINS CAPS Take one by mouth daily MULTIPLE VITAMIN 39838341325 No Longer Active Sahara Rodriguez MD PhD Active BACTRIM DS 800-160 MG TAB 1 tab by mouth twice daily TRIMETHOPRIM-SULFAMETHOXAZOLE 92093770738 No Longer Active Sahara Rodriguez MD PhD Active [facility] PROBIOTIC ORAL CHEW 2 daily po PROBIOTIC PRODUCT 54884707531 No Longer Active Sahara Rodriguez MD PhD Active BACTRIM DS 800-160 MG TABS 1 po BID x 7 days SULFAMETHOXAZOLE-TRIMETHOPRIM 81615867522 No Longer Active Vishal Hui MD Active CHANTIX STARTING MONTH EARNEST 0.5 MG X 11 & 1 MG X 42 TABS 0.5mg daily for 3 days , then 0.5mg BID for 4 days, then 1mg BID VARENICLINE TARTRATE 95324687964 No Longer Active TAMARA Gray Active VERAPAMIL HCL CR 120 MG TAB CR 1 po bid VERAPAMIL HCL 01092358737 No Longer Active Vishal Hui MD Active METOPROLOL SUCCINATE 50 MG TB24 1 tablet by mouth daily METOPROLOL SUCCINATE 39335289960 No Longer Active Vishal Hui MD Active SAPHRIS 10 MG SUBL 1 tab po bid ASENAPINE MALEATE 98919524045 No Longer Active Vishal Hui MD Active LISINOPRIL 20 MG TABS 1 tab po qd LISINOPRIL 99244225120 No Longer Active Vishal Hui MD Active LATUDA 20 MG TABS Take one by mouth daily LURASIDONE HCL 47376310504 No Longer Active Vishal Hui MD Active TRAZODONE HCL 50 MG TABS 1/2 tab po qd prn for anxiety TRAZODONE HCL 86399467222 No Longer Active Vishal Hui MD Active OMEPRAZOLE 20 MG TBEC 1 po q a.m. 30min prior to first food intake OMEPRAZOLE 72815634001 Active Vishal Hui MD Active RANITIDINE HCL 150 MG CAPS 1 twice a day RANITIDINE HCL 13902114649 Active Jillina Mauricio TOWER WATCHMAN Active LINZESS 290 MCG CAPS Take one by mouth daily LINACLOTIDE 20449695271 No Longer Active Vishal Hui MD Active SAPHRIS 5 MG SUBL 1 tab po qd ASENAPINE MALEATE 96173823108 No Longer Active Vishal Hui MD Active ZALEPLON 10 MG CAPS 1 cap po every other night ZALEPLON 87217360673 No Longer Active Vishal Hui MD Active LYRICA 50 MG CAPS 1 tab po TID PREGABALIN 18278639625 No Longer Active Vishal Hui MD Active LORATADINE 10 MG TABS 1 tab po qd LORATADINE 09194268850 No Longer Active Vishal Hui MD Active VERAPAMIL HCL ER 180 MG CR-TABS 1 tab po bid VERAPAMIL HCL 42209388969 No Longer Active Vishal Hui MD Active MIRALAX POWD 1 capfull once daily POLYETHYLENE GLYCOL 3350 73221969526 No Longer Active Vishal Hui MD Active PREDNISONE 20 MG TABS 1 tab po qd PREDNISONE 80393408633 No Longer Active Renzo Thornton DO Active LEVOFLOXACIN 500 MG TABS 1 tab po qd LEVOFLOXACIN 86862661804 No Longer Active Renzo Thornton DO Active BUSPIRONE HCL 15 MG TABS 1 tab po TID BUSPIRONE HCL 41696111294 No Longer Active Renzo Thornton DO Active BENZTROPINE MESYLATE 1 MG TABS 1 tab po qd BENZTROPINE MESYLATE 31908585197 No Longer Active Renzo Thornton DO Active ATENOLOL 25 MG TABS 1 tab po qd ATENOLOL 43945435327 No Longer Active Renzo Thornton DO Active ESCITALOPRAM OXALATE 20 MG TABS 1 tab po qd ESCITALOPRAM OXALATE 31525787445 No Longer Active Renzo Thornton DO Active ADVAIR DISKUS 250-50 MCG/DOSE AEPB 1 puff BID FLUTICASONE-SALMETEROL 87344986223 No Longer Active Renzo Thornton DO Active PREDNISONE 20 MG TAB 2 tabs daily for 3 days, 1 tab daily for 3 days, 1/2 tab daily for 2 days PREDNISONE 54247116429 No Longer Active Vishal Hui MD Active CEFDINIR 300 MG CAPS by mouth twice a day CEFDINIR 73649488423 No Longer Active Vishal Hui MD Active LANSOPRAZOLE 30 MG CPDR 1 cap po qd LANSOPRAZOLE 15358040354 No Longer Active Vishal Hui MD Active BACLOFEN 20 MG TABS 1 tab po tid BACLOFEN 02167554124 No Longer Active Vishal uHi MD Active ADVAIR DISKUS 250-50 MCG/DOSE AEPB 1 puff BID ADVAIR DISKUS 250-50 MCG/DOSE AEPB FLUTICASONE-SALMETEROL Inactive ESCITALOPRAM OXALATE 20 MG TABS 1 tab po qd ESCITALOPRAM OXALATE 20 MG TABS 718023 ESCITALOPRAM OXALATE Inactive ATENOLOL 25 MG TABS 1 tab po qd ATENOLOL 25 MG TABS 396062 ATENOLOL Inactive BENZTROPINE MESYLATE 1 MG TABS 1 tab po qd BENZTROPINE MESYLATE 1 MG TABS 141757 BENZTROPINE MESYLATE Inactive BUSPIRONE HCL 15 MG TABS 1 tab po TID BUSPIRONE HCL 15 MG TABS 071917 BUSPIRONE HCL Inactive LEVOFLOXACIN 500 MG TABS 1 tab po qd LEVOFLOXACIN 500 MG TABS 691579 LEVOFLOXACIN Inactive PREDNISONE 20 MG TABS 1 tab po qd PREDNISONE 20 MG TABS 904984 PREDNISONE Inactive MIRALAX POWD 1 capfull once daily MIRALAX POWD 564018 POLYETHYLENE GLYCOL 3350 Inactive VERAPAMIL HCL ER 180 MG CR-TABS 1 tab po bid VERAPAMIL HCL ER 180 MG CR-TABS VERAPAMIL HCL Inactive LORATADINE 10 MG TABS 1 tab po qd LORATADINE 10 MG TABS 715764 LORATADINE Inactive LYRICA 50 MG CAPS 1 tab po TID LYRICA 50 MG CAPS PREGABALIN Inactive ZALEPLON 10 MG CAPS 1 cap po every other night ZALEPLON 10 MG CAPS 972692 ZALEPLON Inactive SAPHRIS 5 MG SUBL 1 tab po qd SAPHRIS 5 MG SUBL ASENAPINE MALEATE Inactive TRAZODONE HCL 50 MG TABS 1/2 tab po qd prn for anxiety TRAZODONE HCL 50 MG TABS 220804 TRAZODONE HCL Inactive LATUDA 20 MG TABS Take one by mouth daily LATUDA 20 MG TABS LURASIDONE HCL Inactive LISINOPRIL 20 MG TABS 1 tab po qd LISINOPRIL 20 MG TABS 817698 LISINOPRIL Inactive SAPHRIS 10 MG SUBL 1 [...] twice daily BACTRIM DS 800-160 MG TAB 159342 TRIMETHOPRIM-SULFAMETHOXAZOLE Inactive MULTIVITAMINS CAPS Take one by mouth daily MULTIVITAMINS CAPS MULTIPLE VITAMIN Inactive MELATONIN 3 MG CAPS 2 po q hs MELATONIN 3 MG CAPS 765289 MELATONIN Inactive KEFLEX 500 MG ORAL CAPS 1 cap QID by mouth KEFLEX 500 MG ORAL CAPS 625511 CEPHALEXIN Inactive CLINDAMYCIN HCL 150 MG CAPS 1 four times a day CLINDAMYCIN HCL 150 MG CAPS 316259 CLINDAMYCIN HCL Inactive DIFLUCAN 150 MG TAB 1 tablet by mouth daily DIFLUCAN 150 MG TAB 026527 FLUCONAZOLE Inactive PROZAC 20 MG CAP Take one by mouth daily PROZAC 20 MG CAP 484374 FLUOXETINE HCL Inactive IBUPROFEN 600 MG TAB 1 po TID PRN IBUPROFEN 600 MG TAB 246709 IBUPROFEN Inactive VYVANSE 40 MG CAPS 1 daily, VYVANSE 40 MG CAPS LISDEXAMFETAMINE DIMESYLATE Inactive TRAZODONE HCL 100 MG TAB take 1 at bedtime TRAZODONE HCL 100 MG TAB 777592 TRAZODONE HCL Inactive AMITRIPTYLINE HCL 100 MG TAB one at hs AMITRIPTYLINE HCL 100 MG TAB 435913 AMITRIPTYLINE HCL Inactive AMLODIPINE BESYLATE 5 MG TABS 1 tablet by mouth daily AMLODIPINE BESYLATE 5 MG TABS 850204 AMLODIPINE BESYLATE Inactive LATUDA 80 MG TABS Take one by mouth daily LATUDA 80 MG TABS LURASIDONE HCL Inactive SAPHRIS 5 MG SUBL 1 po bid SAPHRIS 5 MG SUBL ASENAPINE MALEATE Inactive PREDNISONE 20 MG TAB 2 tabs daily for 4 days, 1 tab daily for 4 days, 1/2 tab daily for 4 days PREDNISONE 20 MG TAB 515823 PREDNISONE Inactive AMBIEN 5 MG ORAL TABS 1 tab at bedtime AMBIEN 5 MG ORAL TABS 380610 ZOLPIDEM TARTRATE Inactive PROZAC 20 MG ORAL CAPS 1 tab daily PROZAC 20 MG ORAL CAPS 887582 FLUOXETINE HCL Inactive ABILIFY 15 MG ORAL TABS 1 tab daily ABILIFY 15 MG ORAL TABS 738577 ARIPIPRAZOLE Inactive METOPROLOL TARTRATE 50 MG TAB 1 po bid METOPROLOL TARTRATE 50 MG TAB 409879 METOPROLOL TARTRATE Inactive TRAMADOL HCL 50 MG TABS 1-2 po TID PRN Pain TRAMADOL HCL 50 MG TABS 496612 TRAMADOL HCL Inactive PIROXICAM 20 MG CAPS 1 cap po qd PRN Pain PIROXICAM 20 MG CAPS 998143 PIROXICAM Inactive MINIPRESS 2 MG CAPS 4 cap po at night MINIPRESS 2 MG CAPS 142010 PRAZOSIN HCL Inactive MIRALAX PACK 1 po qd PRN Constipation MIRALAX PACK 835973 POLYETHYLENE GLYCOL 3350 Inactive METOPROLOL TARTRATE 25 MG ORAL TABS 1/2 tablet twice daily for heart rate and blood pressure METOPROLOL TARTRATE 25 MG ORAL TABS 035801 METOPROLOL TARTRATE Inactive VALIUM 5 MG TAB Take 1-2 tablets daily VALIUM 5 MG TAB 121169 DIAZEPAM Inactive FLAGYL 500 MG TAB 1 tablet by mouth bid FLAGYL 500 MG TAB 170666 METRONIDAZOLE Inactive DICLOFENAC POTASSIUM TABS Take 1 tablet twice a day (pt. is not sure of the dose.) DICLOFENAC POTASSIUM TABS DICLOFENAC POTASSIUM TABS Inactive ZITHROMAX Z-EARNEST 250 MG TABS 2 today and then 1 daily for 4 days ZITHROMAX Z-EARNEST 250 MG TABS 2176507 AZITHROMYCIN Inactive PREDNISONE 20 MG TABS 2 daily for 5 days then 1 daily for 5 days PREDNISONE 20 MG TABS 733931 PREDNISONE Inactive PROAIR HFA 108 (90 BASE) MCG/ACT AERS 2 puffs four times a day as needed 2015 PROAIR HFA 108 (90 BASE) MCG/ACT AERS ALBUTEROL SULFATE Inactive HYDROCODONE-ACETAMINOPHEN 5-325 MG TABS 1 to 2 four times a day as needed for pain use until can be seen by specialist HYDROCODONE- ACETAMINOPHEN 5-325 MG TABS 941788 HYDROCODONE-ACETAMINOPHEN Inactive TESSALON PERLES 100 MG CAP 1 to 2 tablets by mouth 3 times daily as needed for cough TESSALON PERLES 100 MG CAP 422458 BENZONATATE Inactive CHANTIX STARTING MONTH EARNEST 0.5 [...] Pain 2015 DICLOFENAC SODIUM 50 MG TBEC 884818 DICLOFENAC SODIUM Inactive TOPAMAX 50 MG ORAL TABS 1 tab twice daily TOPAMAX 50 MG ORAL TABS 567961 TOPIRAMATE Inactive VIIBRYD 10 MG ORAL TABS Take 1 tablet once a day VIIBRYD 10 MG ORAL TABS VILAZODONE HCL Inactive LEVOFLOXACIN 500 MG ORAL TABS po daily LEVOFLOXACIN 500 MG ORAL TABS 892891 LEVOFLOXACIN Inactive METHYLPREDNISOLONE 4 MG ORAL TABS po daily METHYLPREDNISOLONE 4 MG ORAL TABS 305664 METHYLPREDNISOLONE Inactive OXYCODONE HCL ER 10 MG ORAL T12A 1/2 tab by mouth every 4 hours prn OXYCODONE HCL ER 10 MG ORAL T12A OXYCODONE HCL Inactive FLAGYL 500 MG TAB 1 tablet by mouth bid FLAGYL 500 MG TAB 306940 METRONIDAZOLE Inactive MONISTAT 7 COMBO PACK WOODROW 100 & 2 MG-% (9GM) VAG KIT 1 applicatorful per vagina q pm x 7 MONISTAT 7 COMBO PACK WOODROW 100 & 2 MG-% (9GM) VAG KIT MICONAZOLE NITRATE Inactive BACTRIM DS 800-160 MG TABS 1 twice a day BACTRIM DS 800-160 MG TABS 221411 SULFAMETHOXAZOLE-TRIMETHOPRIM Inactive TRAMADOL HCL 50 MG TABS 1/2-1 tab TID PRN TRAMADOL HCL 50 MG TABS 335149 TRAMADOL HCL Inactive ABILIFY MAINTENA 400 MG IM SUSR 400mg injection every 26 days ABILIFY MAINTENA 400 MG IM SUSR ARIPIPRAZOLE Inactive KLONOPIN 1 MG ORAL TABS 1 tab po TID KLONOPIN 1 MG ORAL TABS 710054 CLONAZEPAM Inactive ADVAIR DISKUS 250-50 MCG/DOSE INH AEPB 1 puff twice a day for asthma ADVAIR DISKUS 250-50 MCG/DOSE INH AEPB FLUTICASONE- SALMETEROL Inactive BENADRYL 25 MG CAP 4 po at bedtime for insomnia BENADRYL 25 MG CAP DIPHENHYDRAMINE HCL Inactive CEFDINIR 300 MG CAPS by mouth twice a day CEFDINIR 300 MG CAPS 346606 CEFDINIR Inactive PREDNISONE 20 MG TAB 2 tabs daily for 3 days, 1 tab daily for 3 days, 1/2 tab daily for 2 days PREDNISONE 20 MG TAB 431128 PREDNISONE Inactive BACTRIM DS 800-160 MG TABS 1 po BID x 7 days BACTRIM DS 800-160 MG TABS 19820521 SULFAMETHOXAZOLE-TRIMETHOPRIM Inactive DIFLUCAN 150 MG TABS 1 pill every other day x 2 doses DIFLUCAN 150 MG TABS 673313 FLUCONAZOLE Inactive BACTRIM DS 800-160 MG TABS 1 pill by mouth twice daily BACTRIM DS 800-160 MG TABS 19820521 SULFAMETHOXAZOLE-TRIMETHOPRIM Inactive KEFLEX 500 MG CAP 1 po TID x 10 days KEFLEX 500 MG CAP 266605 CEPHALEXIN Inactive Advance Directives Directive Description Start [...] 369 10^3/MM^3 10*3/mm3 142-424 Lab Report: Chlamydia/GC APTIMA/[id number] - Lab chlamydia DNA probe NOT DETECTED NOT DETECTED Lab Report: Chlamydia/GC APTIMA/[id number] - Microbiology Neisseria gonorrhoeae DNA probe NOT DETECTED NOT DETECTED Lab Report: Comp. Metabolic Panel - Chemistry sodium, serum 140 mmol/L 045-693 2665/08/08 carbon dioxide, venous blood 33.7 mmol/L 21.0-32.0 [...] 27.6 mmol/L 21.0-32.0 sodium, serum 142 mmol/L 122-286 0776/06/08 urea nitrogen, blood 8 mg/dL 7-18 creatinine, [...] mg/dL Encounters Code Encounter Date Provider Facility CPT-01842 Level 3 Est. Patient 10:40:11 RIPSAW MATCHER Ahmet Carbajal MD [facility] CPT-26079 Level 3 Est. Patient 15:07:06 RIPSAW MATCHER Neeraj Collins MD [facility] CPT-46431 Level 4 Est. Patient 14:45:00 RIPSAW MATCHER Ahmet Carbajal MD [facility] CPT-08736 Level 3 Est. Patient 13:59:59 CDT Luigi Martínez [facility] CPT-02391 Level 3 Est. Patient 18:18:53 CDT Neeraj Collins MD [facility] CPT-05407 Level 3 Est. Patient 15:50:44 CDT Vishal Hui MD [facility] CPT-10634 Level 3 Est. Patient 11:36:17 CDT Ahmet Carbajal MD [facility] CPT-31269 Level 3 Est. Patient 13:29:16 CDT Vishal Hui MD [facility] CPT-87391 Level 3 Est. Patient 14:27:52 CDT Neeraj Collins MD [facility] CPT-81052 Level 3 Est. Patient 08:56:03 CDT Luigi Martínez [facility] CPT-60924 Level 4 Est. Patient 12:11:48 CDT Fabiola Johnson [facility] CPT-78227 Level 3 New Patient 16:53:37 CDT Albert Caldera MD [facility] CPT-04734 Level 3 Est. Patient 11:25:49 CDT Renzo Thornton DO [facility] CPT-98539 Level 3 Est. Patient 15:22:01 CDT Ahmet Carbajal MD [facility] CPT-90443 Level 4 Est. Patient 09:00:51 RIPSAW MATCHER Vishal Hui MD [facility] CPT-63052 Level 3 Est. Patient 11:37:33 RIPSAW MATCHER Vishal Hui MD [facility] CPT-85470 Level 3 Est. Patient 08:41:09 RIPSAW MATCHER Vishal Hui MD [facility] CPT-90830 Level 4 Est. Patient 10:19:35 RIPSAW MATCHER Vishal Hui MD [facility] CPT-26560 Level 3 Est. Patient 13:35:45 CDT Vishal Hui MD [facility] CPT-67168 Level 4 Est. Patient 10:08:37 CDT Vishal Hui MD [facility] CPT-92414 Level 3 Est. Patient 11:22:10 CDT Vishal Hui MD [facility] CPT-25023 Level 3 Est. Patient 11:03:32 CDT Sahara Rodirguez MD PhD [facility] CPT-82643 Level 3 Est. Patient 09:41:35 CDT Vishal Hui MD [facility] CPT-20583 Level 3 Est. Patient 12:00:41 CDT Neeraj Collins MD [facility] CPT-23386 Level 3 Est. Patient 09:16:24 CDT Vishal Hui MD [facility] CPT-77389 Level 4 Est. Patient 13:59:09 CDT Neeraj Collins MD [facility] CPT-55469 Level 3 Est. Patient 15:19:43 CDT Renzo Thornton [facility] CPT-55285 Level 3 Est. Patient 18:10:26 CDT Sahara Rodriguez MD PhD [facility] CPT-40775 Level 3 Est. Patient 14:49:50 CDT Vishal Hui MD [facility] CPT-35854 Level 4 Est. Patient 18:41:46 CDT Neeraj Collins MD [facility] CPT-29421 Level 4 Est. Patient 09:18:38 RIPSAW MATCHER Vishal Hui MD [facility] CPT-47948 Level 3 Est. Patient 14:43:55 RIPSAW MATCHER Vishal Hui MD [facility] CPT-43647 Level 3 Est. Patient 15:26:33 RIPSAW MATCHER Sahara Rodriguez MD PhD [facility] CPT-61617 Level 3 Est. Patient 10:32:14 RIPSAW MATCHER Vishal Hui MD [facility] CPT-68033 Level 3 Est. Patient 15:12:52 RIPSAW MATCHER Vishal Hui MD [facility] CPT-77756 Level 4 Est. Patient 09:19:27 CDT Vishal Hui MD [facility] CPT-02967 Level 3 Est. Patient 15:53:00 CDT Renzo Thornton DO [facility] CPT-15194 Level 3 Est. Patient 15:50:30 CDT Renzo Thornton [facility] CPT-47320 Level 3 Est. Patient 16:55:24 CDT Vishal Hui MD [facility] Procedures Code Procedure Name Date Entry Date Standard Description CPT-G0439 [facility] Annual Wellness Exam 09:30:58 RIPSAW MATCHER CPT-29979 TSH - LAB USE ONLY 08:50:26 RIPSAW MATCHER CPT-61903 CBC - LAB USE ONLY 08:50:26 RIPSAW MATCHER CPT-82456 Venipuncture Draw Fee 08:50:26 RIPSAW MATCHER CPT-26172 Abx/Therapy Injection 17:34:30 RIPSAW MATCHER CPT-50473 Nexplanon Removal with Reinsertion 14:09:32 CDT CPT-J7307 Nexplanon (Implant) 14:09:32 CDT CPT-OV Office Visit 14:09:32 CDT CPT-65711 UA w micro - LAB USE ONLY 16:21:13 CDT CPT-23937 Wet Mount - LAB USE ONLY 16:21:13 CDT CPT-14586 First Vx - Ix admin for Medicare patients 14:37:47 CDT CPT-36796 Fluzone Preservative Free Intramuscular Suspension 14:37 :47 CDT CPT-53533 Abx/Therapy Injection 13:54:22 CDT CPT-60606 Abx/Therapy Injection 08:47:09 CDT CPT-00673 Abx/Therapy Injection 13:29:56 CDT CPT-31901 Abx/Therapy Injection 08:36:16 CDT CPT-98078 Wet Mount - LAB USE ONLY 17:44:58 CDT CPT-31540 UA w micro - LAB USE ONLY 17:44:58 CDT CPT-45849 CMP - LAB USE ONLY 17:44:58 CDT CPT-66401 Venipuncture Draw Fee 17:44:58 CDT CPT-85160 Cervical Min 4V - XRAY USE ONLY 09:01:40 CDT CPT-45503 Chest 2V Frontal and Lat - XRAY USE ONLY 11:06:31 CDT CPT-97416 EKG Trac and Interp - XRAY USE ONLY 11:31:43 CDT 08/26 CPT-J3420 Vitamin B12 1000mcg (Cyanocobalamin) 08:10:26 RIPSAW MATCHER 04/12 CPT-92064 Abx/Therapy Injection 08:10:26 RIPSAW MATCHER CPT-G0438 Initial Annual Wellness Exam 19:01:01 RIPSAW MATCHER CPT-J3420 Vitamin B12 1000mcg (Cyanocobalamin) 16:57:46 CDT 08/14 CPT-77210 Recombivax HB Injection Suspension 5 MCG/0.5ML 08:37:50 RIPSAW MATCHER CPT-34498 Immunization Single Admin 08:37:50 RIPSAW MATCHER CPT-J3420 Vitamin B12 1000mcg (Cyanocobalamin) 08:32:16 RIPSAW MATCHER 03/11 CPT-09104 Abx/Therapy Injection 08:32:16 RIPSAW MATCHER CPT-62092 Chest 2V Frontal and Lat 11:46:38 RIPSAW MATCHER CPT-31480 Venipuncture Draw Fee 09:12:45 RIPSAW MATCHER CPT-J3420 Vitamin B12 1000mcg (Cyanocobalamin) 08:50:15 RIPSAW MATCHER 02/08 CPT-00135 Abx/Therapy Injection 08:50:15 RIPSAW MATCHER CPT-Cryo Cryotherapy 10:19:35 RIPSAW MATCHER CPT-000 Give Appropriate Flu Vaccine 09:22:16 CDT CPT-J3420 Vitamin B12 1000mcg (Cyanocobalamin) 19:08:57 CDT 01/11 CPT-19081 Abx/Therapy Injection 19:08:57 CDT CPT-J3420 Vitamin B12 1000mcg (Cyanocobalamin) 08:19:08 CDT 12/11 CPT-68727 Abx/Therapy Injection 08:19:08 CDT CPT-J3420 Vitamin B12 1000mcg (Cyanocobalamin) 14:48:00 CDT 11/09 CPT-97546 Abx/Therapy Injection 14:47:59 CDT CPT-J3420 Vitamin B12 1000mcg (Cyanocobalamin) 08:34:04 CDT 10/09 CPT-16508 Abx/Therapy Injection 08:34:04 CDT CPT-J3420 Vitamin B12 1000mcg (Cyanocobalamin) 09:18:52 CDT 09/11 CPT-88404 Abx/Therapy Injection 09:18:52 CDT CPT-J3420 Vitamin B12 1000mcg (Cyanocobalamin) 08:35:44 CDT 09/04 CPT-19545 Abx/Therapy Injection 08:35:44 CDT CPT-00648 Immunization Single Admin 11:07:16 CDT CPT-94749 Hepatitis B adult IM 11:07:16 CDT CPT-J3420 Vitamin B12 1000mcg (Cyanocobalamin) 11:00:49 CDT 08/28 CPT-J1040 Depo Medrol 80 mg (Methyl Prednisolone Acetate) 11:00: 49 CDT CPT-16239 Abx/Therapy Injection 11:00:49 CDT CPT-J1040 Depo Medrol 80 mg (Methyl Prednisolone Acetate) 09:16: 23 CDT CPT-J3420 Vitamin B12 1000mcg (Cyanocobalamin) 08:27:05 CDT 08/20 CPT-36910 Abx/Therapy Injection 08:27:05 CDT CPT-90110 Recombivax HB Injection Suspension 5 MCG/0.5ML 10:00:41 CDT CPT-51973 Administration single or combination vaccine inc oral 10 :00:41 CDT CPT-30938 Sono transvag pelvis non OB uterus ovaries cervix 16:36: 57 CDT CPT-19642 LS spine comp w obliq 09:50:55 RIPSAW MATCHER CPT-97883 Abd compl w upright 09:50:55 RIPSAW MATCHER CPT-J1100 Decadron 4mg (Dexamethasone) 15:51:24 RIPSAW MATCHER CPT-J1030 Depo Medrol 40 mg (Methyl Prednisolone Acetate) 15:51: 24 RIPSAW MATCHER CPT-73024 Abx/Therapy Injection 15:51:24 RIPSAW MATCHER CPT-J1100 Decadron 4mg (Dexamethasone) 15:26:33 RIPSAW MATCHER CPT-J1030 Depo Medrol 40 mg (Methyl Prednisolone Acetate) 15:26: 33 RIPSAW MATCHER CPT-77359 Sono retroperitoneal complete kidneys and bladder 17:15: 30 CDT CPT-94525 Abd compl w upright 16:09:25 CDT CPT-J1100 Decadron 8mg (Dexamethasone) 17:07:57 CDT CPT-60167 Abx/Therapy Injection 17:07:57 CDT CPT-J1100 Decadron 8mg (Dexamethasone) 16:55:24 CDT CPT-70653 Chest 2V Frontal and Lat 16:32:44 CDT
--- OUTSIDE RECORDS SUMMARY | 2016-11-04 19:54 | XMS REPORT ---
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 Amb off unit in good condition to friends vehicle. :40 Vital signs Type Value Date Respiration Rate 20breaths per minute : Pulse 71beats per minute : Oxygen Saturation 99% :30 BP Systolic 120mmHg :30 BP Diastolic 72mmHg :30 Temperature 99.0F :30 Weight 286.0LB 85-30-510370:05 Social history Type Value Smoking Status CURRENT EVERY DAY SMOKER Treatment Plan No treatment plan text is available for this visit. Hospital discharge instructions Dismissal Condition good Disposition on DC home DC Inst/Educ Give yes PNE Vac 10 yrs ago Flu Vac 2014
--- OUTSIDE RECORDS SUMMARY | 2016-11-04 19:54 | XMS REPORT ---
Author Author [facility] Organization [facility] Address [address] [place], [place] [address] Phone [phone] Summary purpose TRANSITION OF CARE AUTO GENERATION [...] diagnostic tests and/or laboratory data RESULTS Chemistry :12:00 Result Normal Range Units Sodium 138 134-145 mEq/l Potassium 4.1 3.5-5.1 mEq/l Chloride 104 98-107 mEq/l CO2 26.4 22-28 mEq/l Glucose H 115 70-105 mg/dl BUN 11 7-18 mg/dl Creatinine L 0.49 0.6-1.0 mg/dl Calcium 8.5 8.4-10.2 mg/dl Osmolality L 276.0 280-300 mOsm/L Anion GAP L 7.6 8-16 BUN/Creatinine Ratio H 22.4 10-20 Estimated GFR 150 >=60 mL/min/1.7 Vitamin B12 580 193-986 pg/ml Hematology 04-05-184359:12:00 Result Normal Range Units WBC 10.5 4.8-10.8 103/uL RBC 4.3 4.2-5.4 106/uL HGB 13.3 12.0-16.0 g/dl HCT 38.9 36.9-47.0 % MCV 90.5 81-99 FL MCH 30.9 27-31 pg MCHC 34.2 33-37 g/dl RDW 12.0 11.5-15.5 % PLT 357 130-400 103/uL MPV H 10.7 7.3-10.4 FL Neutro % 62.7 40-70 % Lymph % 26.0 20-40 % Wayne % 9.0 0-10.0 % Eos % 1.4 0-7.0 % Baso % 0.4 0-2 % Neutro # 6.6 1.5-7.5 103/uL Lymph # 2.7 0.9-4.0 103/uL Wayne # H 0.9 0-0.8 103/uL Eos # 0.2 0-0.6 103/uL Baso # 0.0 0-0.1 103/uL Radiology Results [id number]:43:00 Chest X-Ray - 2 View PACs Image DATE OF EXAM: Aug 06 2015 RAD 0300-CHEST XRAY 2 VIEW : RADIOLOGY REPORT DATE OF SERVICE: 08/06/15 HISTORY: Cough for 3 weeks CHEST 2 VIEWS 1045 HOURS Comparison is made with 07/14/2015. The lungs are clear. Heart size and pulmonary vessels are normal. There are no hilar or mediastinal abnormalities. IMPRESSION: Normal chest. MD SOLEDAD Mays/sc08/06/2015 10:57:00 / 08/06/2015 11:14:49 cc:Lizz Mitchell PA-C This document has been electronically Signed by: On: DATE OF EXAM: Aug 06 2015 RAD 0300-CHEST XRAY 2 VIEW : RADIOLOGY REPORT DATE OF SERVICE: 08/06/15 HISTORY: Cough for 3 weeks CHEST 2 VIEWS 1045 HOURS Comparison is made with 07/14/2015. The lungs are clear. Heart size and pulmonary vessels are normal. There are no hilar or mediastinal abnormalities. IMPRESSION: Normal chest. MD SOLEDAD Mays/sc08/06/2015 10:57:00 / 08/06/2015 11:14:49 cc:Lizz Mitchell PA-C This document has been electronically Signed by: ELAN MAHAN MD On: Aug 06 2015 11:43A Result Amended on 2015-08-06 at 11:43:46. Previous status was MT. [id number]:12:00 Result Normal Range Units MPV H 10.7 7.3-10.4 FL History of procedures No procedures [...]
--- OUTSIDE RECORDS SUMMARY | 2016-11-04 19:54 | XMS REPORT | Clinical Summary ---
Author Author Admin, BRIELLEE Organization [facility] Address Unknown Phone Unavailable Allergies, Adverse Reactions, [...] sites Morbid obesity 278.01 Active Juliet Kimbrough [employer] Morbid obesity 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 Active [...] breath Nocturnal hypoxia 799.02 Active Fabiola Johnson [employer] Hypoxemia Neck pain 723.1 Resolved Vishal Hui [...] Hui MD Personality change ICD-301.9 Inactive Vishal Hiu MD Leukocytosis ICD-288.60 Inactive Vishal Hui MD UTI ICD-599.0 Inactive Vishal Hui MD Headache, atypical ICD-784.0 Inactive Albert Caldera MD Elevated blood glucose ICD-790.29 Inactive Vishal Hui MD Gait unsteady ICD-781.2 Inactive Albert Caldera MD Lipoma ICD-214.9 Inactive Albert Caldera MD Abdominal pain, RUQ ICD-789.01 Inactive Albert Caldera MD Chest pain, acute ICD-786.50 Inactive Albert aCldera MD Localized adiposity ICD-278.1 Inactive Vishal Hui [...] day to help quit smoking VARENICLINE TARTRATE 12209556773 No Longer Active Dipika Burgos MD Active CHANTIX STARTING MONTH EARNEST 0.5 MG X 11 & 1 MG X 42 TABS take as directed 2015 VARENICLINE TARTRATE 11323520516 No Longer Active Dipika Burgos MD Active MONISTAT 7 COMBO PACK WOODROW 100 & 2 MG-% (9GM) VAG KIT 1 applicatorful per vagina q pm x 7 MICONAZOLE NITRATE 39205821632 Active Jillina Frazell [employer] Active FLAGYL 500 MG TAB 1 tablet by mouth bid METRONIDAZOLE 45847234181 Active Jillina Frazell [employer] Active TESSALON PERLES 100 MG CAP 1 to 2 tablets by mouth 3 times daily as needed for cough BENZONATATE 42064358742 No Longer Active Jillina Frazell [employer] Active ABILIFY MAINTENA 400 MG IM SUSR 400mg injection every 26 days ARIPIPRAZOLE 58403255505 Active Silvia Casey [employer] Active IMITREX 50 MG ORAL TABS 0.5 po x 1 PRN Headache. May repeat dose x 1 in 2 hours if needed SUMATRIPTAN SUCCINATE 03417064210 Active Vishal Hui MD Active OXYCODONE HCL ER 10 MG ORAL T12A 1/2 tab by mouth every 4 hours prn OXYCODONE HCL 76536397660 Active Neeraj Collins MD Active METHYLPREDNISOLONE 4 MG ORAL TABS po daily METHYLPREDNISOLONE 71629936914 Active Vishal Hui MD Active LEVOFLOXACIN 500 MG ORAL TABS po daily LEVOFLOXACIN 17370794940 Active Vishal Hui MD Active HYDROCODONE-ACETAMINOPHEN 5-325 MG TABS 1 to 2 four times a day as needed for pain use until can be seen by specialist HYDROCODONE- ACETAMINOPHEN 66974757206 No Longer Active Vishal Hui MD Active PROAIR HFA 108 (90 BASE) MCG/ACT AERS 2 puffs four times a day as needed 2015 ALBUTEROL SULFATE 22909389308 No Longer Active Vishal Hui MD Active PREDNISONE 20 MG TABS 2 daily for 5 days then 1 daily for 5 days PREDNISONE 68717360463 No Longer Active Vishal Hui MD Active ZITHROMAX Z-EARNEST 250 MG TABS 2 today and then 1 daily for 4 days AZITHROMYCIN 58925188011 No Longer Active Vishal Hui MD Active DICLOFENAC SODIUM 50 MG TBEC 1 tablet by mouth four times daily PRN Pain 2015 DICLOFENAC SODIUM 11980404034 Active Vishal Hui MD Active DICLOFENAC POTASSIUM TABS Take 1 tablet twice a day (pt. is not sure of the dose.) DICLOFENAC POTASSIUM TABS 94426586611 No Longer Active Vishal Hui MD Active VERAPAMIL HCL ER 120 MG ORAL CR-TABS Take 1 tablet by mouth twice a day. VERAPAMIL HCL 22612286165 Active Vishal Hui MD Active FLAGYL 500 MG TAB 1 tablet by mouth bid METRONIDAZOLE 50471105647 No Longer Active Vishal Hui MD Active FLUTICASONE PROPIONATE 50 MCG/ACT SUSP 2 sprays each nostril daily before bed. FLUTICASONE PROPIONATE 23772035678 Active Fabiola Johnson APRN Active ADZENYS XR-ODT 6.3 MG ORAL TBED 1 tab po daily for ADHD AMPHETAMINE 21334603389 Active Fabiola Johnson APRN Active BENADRYL 25 MG CAP 4 po at bedtime for insomnia DIPHENHYDRAMINE HCL 78285054808 Active Fabiola Johnson APRN Active KLONOPIN 1 MG ORAL TABS 1 tab po TID CLONAZEPAM 86319455229 Active Fabiola Johnson APRN Active VALIUM 5 MG TAB Take 1-2 tablets daily DIAZEPAM 27966272844 No Longer Active Fabiola Johnson APRN Active METOPROLOL TARTRATE 25 MG ORAL TABS 1/2 tablet twice daily for heart rate and blood pressure METOPROLOL TARTRATE 94447379153 No Longer Active Fabiola Johnson APRN Active MIRALAX ORAL POWD 17GMS DAILY IN WATER POLYETHYLENE GLYCOL 3350 94329935826 Active Vishal Hui MD Active VIIBRYD 10 MG ORAL TABS Take 1 tablet once a day VILAZODONE HCL 17579324607 Active Ahmet Carbajal MD Active MIRALAX PACK 1 po qd PRN Constipation POLYETHYLENE GLYCOL 3350 84534967277 No Longer Active Ahmet Carbajal MD Active MINIPRESS 2 MG CAPS 4 cap po at night PRAZOSIN HCL 04923576330 No Longer Active Ahmet Carbajal MD Active PIROXICAM 20 MG CAPS 1 cap po qd PRN Pain PIROXICAM 84974471386 No Longer Active Ahmet Carbajal MD Active TRAMADOL HCL 50 MG TABS 1-2 po TID PRN Pain TRAMADOL HCL 64801493383 No Longer Active Ahmet Carbajal MD Active METOPROLOL TARTRATE 50 MG TAB 1 po bid METOPROLOL TARTRATE 63091443252 No Longer Active Ahmet Carbajal MD Active ABILIFY 15 MG ORAL TABS 1 tab daily ARIPIPRAZOLE 64290390265 No Longer Active Ahmet Carbajal MD Active PROZAC 20 MG ORAL CAPS 1 tab daily FLUOXETINE HCL 94217349979 No Longer Active Ahmet Carbajal MD Active AMBIEN 5 MG ORAL TABS 1 tab at bedtime ZOLPIDEM TARTRATE 08422293673 No Longer Active Ahmet Carbajal MD Active PREDNISONE 20 MG TAB 2 tabs daily for 4 days, 1 tab daily for 4 days, 1/2 tab daily for 4 days PREDNISONE 43153757605 No Longer Active Ahmet Carbajal MD Active KEFLEX 500 MG CAP 1 po TID x 10 days CEPHALEXIN 67486769184 No Longer Active Vishal Hui MD Active TOPAMAX 50 MG ORAL TABS 1 tab twice daily TOPIRAMATE 91794170254 Active Vishal Hui MD Active SAPHRIS 5 MG SUBL 1 po bid ASENAPINE MALEATE 41581853634 No Longer Active Luigi Martínez APRN Active LATUDA 80 MG TABS Take one by mouth daily LURASIDONE HCL 52279614145 No Longer Active Luigi Martínez APRN Active AMLODIPINE BESYLATE 5 MG TABS 1 tablet by mouth daily AMLODIPINE BESYLATE 84002925343 No Longer Active Luigi Martínez APRN Active AMITRIPTYLINE HCL 100 MG TAB one at hs AMITRIPTYLINE HCL 40988462471 No Longer Active Vishal Hui MD Active TRAZODONE HCL 100 MG TAB take 1 at bedtime TRAZODONE HCL 29400529913 No Longer Active Vishal Hui MD Active VYVANSE 40 MG CAPS 1 daily, LISDEXAMFETAMINE DIMESYLATE 95764376550 No Longer Active Vishal Hui MD Active IBUPROFEN 600 MG TAB 1 po TID PRN IBUPROFEN 86209303271 No Longer Active Vishal Hui MD Active PROZAC 20 MG CAP Take one by mouth daily FLUOXETINE HCL 91926834097 No Longer Active Vishal Hui MD Active ZOFRAN 4 MG TABS 1 po q6hr PRN Nausea ONDANSETRON HCL Active Vishal Hui MD Active BACTRIM DS 800-160 MG TABS 1 pill by mouth twice daily SULFAMETHOXAZOLE-TRIMETHOPRIM 09967494865 No Longer Active Sahara Rodriguez MD PhD Active DIFLUCAN 150 MG TAB 1 tablet by mouth daily FLUCONAZOLE 07880602589 No Longer Active Vishal Hui MD Active TIZANIDINE HCL 4 MG TABS 1 po q6hr PRN Muscle Spasm/Back Pain TIZANIDINE HCL 61642350794 Active Vishal Hui MD Active CLINDAMYCIN HCL 150 MG CAPS 1 four times a day CLINDAMYCIN HCL 16940881859 No Longer Active Neeraj Collins MD Active KEFLEX 500 MG ORAL CAPS 1 cap QID by mouth CEPHALEXIN 98116600597 No Longer Active Neeraj Collins MD Active DIFLUCAN 150 MG TABS 1 pill every other day x 2 doses FLUCONAZOLE 07358041462 No Longer Active Sahara Rodriguez MD PhD Active MELATONIN 3 MG CAPS 2 po q hs MELATONIN 73066149769 No Longer Active Sahara Rodriguez MD PhD Active MULTIVITAMINS CAPS Take one by mouth daily MULTIPLE VITAMIN 57565380248 No Longer Active Sahara Rodriguez MD PhD Active BACTRIM DS 800-160 MG TAB 1 tab by mouth twice daily TRIMETHOPRIM-SULFAMETHOXAZOLE 44854760070 No Longer Active Sahara Rodriguez MD PhD Active [facility] PROBIOTIC ORAL CHEW 2 daily po PROBIOTIC PRODUCT 08772275661 No Longer Active Sahara Rodriguez MD PhD Active BACTRIM DS 800-160 MG TABS 1 po BID x 7 days SULFAMETHOXAZOLE-TRIMETHOPRIM 57956489419 No Longer Active Vishal Hui MD Active CHANTIX STARTING MONTH EARNEST 0.5 MG X 11 & 1 MG X 42 TABS 0.5mg daily for 3 days , then 0.5mg BID for 4 days, then 1mg BID VARENICLINE TARTRATE 16715179230 No Longer Active TAMARA Gray Active VERAPAMIL HCL CR 120 MG TAB CR 1 po bid VERAPAMIL HCL 20689686084 No Longer Active Vishal Hui MD Active METOPROLOL SUCCINATE 50 MG TB24 1 tablet by mouth daily METOPROLOL SUCCINATE 27277084454 No Longer Active Vishal Hui MD Active SAPHRIS 10 MG SUBL 1 tab po bid ASENAPINE MALEATE 94043611991 No Longer Active Vishal Hui MD Active LISINOPRIL 20 MG TABS 1 tab po qd LISINOPRIL 49454448482 No Longer Active Vishal Hui MD Active LATUDA 20 MG TABS Take one by mouth daily LURASIDONE HCL 85822349035 No Longer Active Vishal Hui MD Active TRAZODONE HCL 50 MG TABS 1/2 tab po qd prn for anxiety TRAZODONE HCL 88033386843 No Longer Active Vishal Hui MD Active OMEPRAZOLE 20 MG TBEC 1 po q a.m. 30min prior to first food intake OMEPRAZOLE 58785729316 Active Vishal Hui MD Active RANITIDINE HCL 150 MG CAPS 1 twice a day RANITIDINE HCL 88806057234 Active Jillina Frazell [employer] Active LINZESS 290 MCG CAPS Take one by mouth daily LINACLOTIDE 32842580587 No Longer Active Vishal Hui MD Active SAPHRIS 5 MG SUBL 1 tab po qd ASENAPINE MALEATE 41467377804 No Longer Active Vishal Hui MD Active ZALEPLON 10 MG CAPS 1 cap po every other night ZALEPLON 48027087541 No Longer Active Vishal Hui MD Active LYRICA 50 MG CAPS 1 tab po TID PREGABALIN 92204527233 No Longer Active Vishal Hui MD Active LORATADINE 10 MG TABS 1 tab po qd LORATADINE 20889658693 No Longer Active Vishal Hui MD Active VERAPAMIL HCL ER 180 MG CR-TABS 1 tab po bid VERAPAMIL HCL 46627278853 No Longer Active Vishal Hui MD Active MIRALAX POWD 1 capfull once daily POLYETHYLENE GLYCOL 3350 54370028883 No Longer Active Vishal Hui MD Active PREDNISONE 20 MG TABS 1 tab po qd PREDNISONE 58135482725 No Longer Active Renzo Thornton DO Active LEVOFLOXACIN 500 MG TABS 1 tab po qd LEVOFLOXACIN 97422380674 No Longer Active Renzo Thornton DO Active BUSPIRONE HCL 15 MG TABS 1 tab po TID BUSPIRONE HCL 39787602796 No Longer Active Renzo Thornton DO Active BENZTROPINE MESYLATE 1 MG TABS 1 tab po qd BENZTROPINE MESYLATE 65828718588 No Longer Active Renzo Thornton DO Active ATENOLOL 25 MG TABS 1 tab po qd ATENOLOL 45336083909 No Longer Active Renzo Thornton DO Active ESCITALOPRAM OXALATE 20 MG TABS 1 tab po qd ESCITALOPRAM OXALATE 94118506419 No Longer Active Renzo Thornton DO Active ADVAIR DISKUS 250-50 MCG/DOSE AEPB 1 puff BID FLUTICASONE-SALMETEROL 86415021413 No Longer Active Renzo Thornton DO Active PREDNISONE 20 MG TAB 2 tabs daily for 3 days, 1 tab daily for 3 days, 1/2 tab daily for 2 days PREDNISONE 12147930680 No Longer Active Vishal Hui MD Active CEFDINIR 300 MG CAPS by mouth twice a day CEFDINIR 21731111732 No Longer Active Vishal Hui MD Active LANSOPRAZOLE 30 MG CPDR 1 cap po qd LANSOPRAZOLE 34672326732 No Longer Active Vishal Hui MD Active BACLOFEN 20 MG TABS 1 tab po tid BACLOFEN 60579981028 No Longer Active Vishal Hui MD Active ADVAIR DISKUS 250-50 MCG/DOSE AEPB 1 puff BID ADVAIR DISKUS 250-50 MCG/DOSE AEPB FLUTICASONE-SALMETEROL Inactive ESCITALOPRAM OXALATE 20 MG TABS 1 tab po qd ESCITALOPRAM OXALATE 20 MG TABS 589558 ESCITALOPRAM OXALATE Inactive ATENOLOL 25 MG TABS 1 tab po qd ATENOLOL 25 MG TABS 281257 ATENOLOL Inactive BENZTROPINE MESYLATE 1 MG TABS 1 tab po qd BENZTROPINE MESYLATE 1 MG TABS 173179 BENZTROPINE MESYLATE Inactive BUSPIRONE HCL 15 MG TABS 1 tab po TID BUSPIRONE HCL 15 MG TABS 208686 BUSPIRONE HCL Inactive LEVOFLOXACIN 500 MG TABS 1 tab po qd LEVOFLOXACIN 500 MG TABS 378005 LEVOFLOXACIN Inactive PREDNISONE 20 MG TABS 1 tab po qd PREDNISONE 20 MG TABS 669240 PREDNISONE Inactive MIRALAX POWD 1 capfull once daily MIRALAX POWD 635893 POLYETHYLENE GLYCOL 3350 Inactive VERAPAMIL HCL ER 180 MG CR-TABS 1 tab po bid VERAPAMIL HCL ER 180 MG CR-TABS VERAPAMIL HCL Inactive LORATADINE 10 MG TABS 1 tab po qd LORATADINE 10 MG TABS 296181 LORATADINE Inactive LYRICA 50 MG CAPS 1 tab po TID LYRICA 50 MG CAPS PREGABALIN Inactive ZALEPLON 10 MG CAPS 1 cap po every other night ZALEPLON 10 MG CAPS 816118 ZALEPLON Inactive SAPHRIS 5 MG SUBL 1 tab po qd SAPHRIS 5 MG SUBL ASENAPINE MALEATE Inactive TRAZODONE HCL 50 MG TABS 1/2 tab po qd prn for anxiety TRAZODONE HCL 50 MG TABS 046155 TRAZODONE HCL Inactive LATUDA 20 MG TABS Take one by mouth daily LATUDA 20 MG TABS LURASIDONE HCL Inactive LISINOPRIL 20 MG TABS 1 tab po qd LISINOPRIL 20 MG TABS 928410 LISINOPRIL Inactive SAPHRIS 10 MG SUBL 1 [...] twice daily BACTRIM DS 800-160 MG TAB 443899 TRIMETHOPRIM-SULFAMETHOXAZOLE Inactive MULTIVITAMINS CAPS Take one by mouth daily MULTIVITAMINS CAPS MULTIPLE VITAMIN Inactive MELATONIN 3 MG CAPS 2 po q hs MELATONIN 3 MG CAPS 200592 MELATONIN Inactive KEFLEX 500 MG ORAL CAPS 1 cap QID by mouth KEFLEX 500 MG ORAL CAPS 820926 CEPHALEXIN Inactive CLINDAMYCIN HCL 150 MG CAPS 1 four times a day CLINDAMYCIN HCL 150 MG CAPS 278180 CLINDAMYCIN HCL Inactive DIFLUCAN 150 MG TAB 1 tablet by mouth daily DIFLUCAN 150 MG TAB 509936 FLUCONAZOLE Inactive PROZAC 20 MG CAP Take one by mouth daily PROZAC 20 MG CAP 124285 FLUOXETINE HCL Inactive IBUPROFEN 600 MG TAB 1 po TID PRN IBUPROFEN 600 MG TAB 780789 IBUPROFEN Inactive VYVANSE 40 MG CAPS 1 daily, VYVANSE 40 MG CAPS LISDEXAMFETAMINE DIMESYLATE Inactive TRAZODONE HCL 100 MG TAB take 1 at bedtime TRAZODONE HCL 100 MG TAB 601590 TRAZODONE HCL Inactive AMITRIPTYLINE HCL 100 MG TAB one at hs AMITRIPTYLINE HCL 100 MG TAB 712386 AMITRIPTYLINE HCL Inactive AMLODIPINE BESYLATE 5 MG TABS 1 tablet by mouth daily AMLODIPINE BESYLATE 5 MG TABS 896304 AMLODIPINE BESYLATE Inactive LATUDA 80 MG TABS Take one by mouth daily LATUDA 80 MG TABS LURASIDONE HCL Inactive SAPHRIS 5 MG SUBL 1 po bid SAPHRIS 5 MG SUBL ASENAPINE MALEATE Inactive PREDNISONE 20 MG TAB 2 tabs daily for 4 days, 1 tab daily for 4 days, 1/2 tab daily for 4 days PREDNISONE 20 MG TAB 599293 PREDNISONE Inactive AMBIEN 5 MG ORAL TABS 1 tab at bedtime AMBIEN 5 MG ORAL TABS 594608 ZOLPIDEM TARTRATE Inactive PROZAC 20 MG ORAL CAPS 1 tab daily PROZAC 20 MG ORAL CAPS 151490 FLUOXETINE HCL Inactive ABILIFY 15 MG ORAL TABS 1 tab daily ABILIFY 15 MG ORAL TABS 283046 ARIPIPRAZOLE Inactive METOPROLOL TARTRATE 50 MG TAB 1 po bid METOPROLOL TARTRATE 50 MG TAB 687525 METOPROLOL TARTRATE Inactive TRAMADOL HCL 50 MG TABS 1-2 po TID PRN Pain TRAMADOL HCL 50 MG TABS 029318 TRAMADOL HCL Inactive PIROXICAM 20 MG CAPS 1 cap po qd PRN Pain PIROXICAM 20 MG CAPS 937696 PIROXICAM Inactive MINIPRESS 2 MG CAPS 4 cap po at night MINIPRESS 2 MG CAPS 873253 PRAZOSIN HCL Inactive MIRALAX PACK 1 po qd PRN Constipation MIRALAX PACK 822343 POLYETHYLENE GLYCOL 3350 Inactive METOPROLOL TARTRATE 25 MG ORAL TABS 1/2 tablet twice daily for heart rate and blood pressure METOPROLOL TARTRATE 25 MG ORAL TABS 153097 METOPROLOL TARTRATE Inactive VALIUM 5 MG TAB Take 1-2 tablets daily VALIUM 5 MG TAB 556333 DIAZEPAM Inactive FLAGYL 500 MG TAB 1 tablet by mouth bid FLAGYL 500 MG TAB 749370 METRONIDAZOLE Inactive DICLOFENAC POTASSIUM TABS Take 1 tablet twice a day (pt. is not sure of the dose.) DICLOFENAC POTASSIUM TABS DICLOFENAC POTASSIUM TABS Inactive ZITHROMAX Z-EARNEST 250 MG TABS 2 today and then 1 daily for 4 days ZITHROMAX Z-EARNEST 250 MG TABS 2467380 AZITHROMYCIN Inactive PREDNISONE 20 MG TABS 2 daily for 5 days then 1 daily for 5 days PREDNISONE 20 MG TABS 070673 PREDNISONE Inactive PROAIR HFA 108 (90 BASE) MCG/ACT AERS 2 puffs four times a day as needed 2015 PROAIR HFA 108 (90 BASE) MCG/ACT AERS ALBUTEROL SULFATE Inactive HYDROCODONE-ACETAMINOPHEN 5-325 MG TABS 1 to 2 four times a day as needed for pain use until can be seen by specialist HYDROCODONE- ACETAMINOPHEN 5-325 MG TABS 375256 HYDROCODONE-ACETAMINOPHEN Inactive TESSALON PERLES 100 MG CAP 1 to 2 tablets by mouth 3 times daily as needed for cough TESSALON PERLES 100 MG CAP 916616 BENZONATATE Inactive CHANTIX STARTING MONTH EARNEST 0.5 [...] twice a day CEFDINIR 300 MG CAPS 475705 CEFDINIR Inactive PREDNISONE 20 MG TAB 2 tabs daily for 3 days, 1 tab daily for 3 days, 1/2 tab daily for 2 days PREDNISONE 20 MG TAB 306681 PREDNISONE Inactive BACTRIM DS 800-160 MG TABS [...] x 10 days KEFLEX 500 MG CAP 407378 CEPHALEXIN Inactive Advance Directives Directive Description Start [...] % 11.6-14.8 platelet count 394 10^3/MM^3 10*3/mm3 984-543 2617/01/11 leukocyte count, blood 13.8 10^3/MM^3 10*3/mm3 4.6-10.2 [...] Panel - Chemistry sodium, serum 139 mmol/L 091-828 5451/12/03 carbon dioxide, venous blood 28.5 mmol/L 21.0-32.0 [...] 5.5 % 4.3-6.0 cholesterol, serum 159 mg/dL 659-926 0272/12/03 triglyceride, serum, fasting 118 mg/dL 30-200 HDL [...] 362 10^3/MM^3 10*3/mm3 142-424 Lab Report: Chlamydia/GC [facility]TIMA/[id number] - Lab chlamydia DNA probe NOT DETECTED NOT DETECTED Lab Report: Chlamydia/GC [facility]/[id number] - Microbiology Neisseria gonorrhoeae DNA probe NOT DETECTED NOT DETECTED Lab Report: Comp. Metabolic Panel - Chemistry sodium, serum 140 mmol/L 356-837 3209/08/08 carbon dioxide, venous blood 33.7 mmol/L 21.0-32.0 potassium, serum 5.0 mmol/L 3.5-5.2 chloride, serum 103 mmol/L 98-107 blood glucose 80 mg/dL 65-110 urea nitrogen, blood 13 mg/dL 7-18 creatinine, serum 0.88 mg/dL 0.55-1.30 alanine aminotransferase (SGPT), serum 54 U/L -78 aspartate aminotransferase (SGOT), serum 29 U/L 15-37 calcium, serum 9.7 mg/dL 8.5-10.1 bilirubin, serum, total 0.30 mg/dL 0.00-1.00 sodium, serum 139 mmol/L 663-826 8180/12/22 carbon dioxide, venous blood 26.8 mmol/L 21.0-32.0 potassium, serum 4.2 mmol/L 3.5-5.2 chloride, serum 103 mmol/L 98-107 blood glucose 115 mg/dL 65-110 urea nitrogen, blood 20 mg/dL 7-18 creatinine, serum 0.90 mg/dL 0.55-1.30 alanine aminotransferase (SGPT), serum 38 U/L aspartate aminotransferase (SGOT), serum 19 U/L 15-37 calcium, serum 8.6 mg/dL 8.5-10.1 bilirubin, serum, total 0.30 mg/dL 0.00-1.00 sodium, serum 139 mmol/L 053-826 7768/01/11 carbon dioxide, venous blood 26.6 mmol/L 21.0-32.0 potassium, serum 4.1 mmol/L 3.5-5.2 chloride, serum 100 mmol/L 98-107 blood glucose 86 mg/dL 65-110 urea nitrogen, blood 16 mg/dL 7-18 creatinine, serum 1.00 mg/dL 0.55-1.30 alanine aminotransferase (SGPT), serum 48 U/L -78 aspartate aminotransferase (SGOT), serum 17 U/L 15-37 calcium, serum 9.1 mg/dL 8.5-10.1 bilirubin, serum, total 0.40 mg/dL 0.00-1.00 sodium, serum 142 mmol/L 253-799 9516/06/08 carbon dioxide, venous blood 27.6 mmol/L 21.0-32.0 [...] Rate - Chemistry sodium, serum 139 mmol/L 773-254 7800/12/11 carbon dioxide, venous blood 25.4 mmol/L 21.0-32.0 [...] mg/dL Encounters Code Encounter Date Provider Facility CPT-67628 Level 3 Est. Patient 13:59:59 CDT Luigi Martínez [facility] CPT-10601 Level 3 Est. Patient 18:18:53 CDT Neeraj Collins MD [facility] CPT-97548 Level 3 Est. Patient 15:50:44 CDT Vishal Hui MD [facility] CPT-68543 Level 3 Est. Patient 11:36:17 CDT Ahmet Carbajal MD [facility] CPT-61359 Level 3 Est. Patient 13:29:16 CDT Vishal Hui MD [facility] CPT-25859 Level 3 Est. Patient 14:27:52 CDT Neeraj Collins MD [facility] CPT-44042 Level 3 Est. Patient 08:56:03 CDT Luigi Martínez [facility] CPT-61781 Level 4 Est. Patient 12:11:48 CDT Fabiola Johnson [facility] CPT-68495 Level 3 New Patient 16:53:37 CDT Albert Caldera MD [facility] CPT-42890 Level 3 Est. Patient 11:25:49 CDT Renzo Thornton DO [facility] CPT-71640 Level 3 Est. Patient 15:22:01 CDT Ahmet Carbajal MD [facility] CPT-89632 Level 4 Est. Patient 09:00:51 WORKFLOW DEVELOPER Vishal Hui MD [facility] CPT-42288 Level 3 Est. Patient 11:37:33 WORKFLOW DEVELOPER Vishal Hui MD [facility] CPT-65686 Level 3 Est. Patient 08:41:09 WORKFLOW DEVELOPER Vishal Hui MD [facility] CPT-60870 Level 4 Est. Patient 10:19:35 WORKFLOW DEVELOPER Vishal Hui MD [facility] CPT-02088 Level 3 Est. Patient 13:35:45 CDT Vishal Hui MD [facility] CPT-96502 Level 4 Est. Patient 10:08:37 CDT Vishal Hui MD [facility] CPT-53900 Level 3 Est. Patient 11:22:10 CDT Vishal Hui MD [facility] CPT-96175 Level 3 Est. Patient 11:03:32 CDT Sahara Rodriguez MD [facility]-34366 Level 3 Est. Patient 09:41:35 CDT Vishal Hui MD [facility] CPT-28814 Level 3 Est. Patient 12:00:41 CDT Neeraj Collins MD [facility]-83518 Level 3 Est. Patient 09:16:24 CDT Vishal Hui MD [facility] CPT-07075 Level 4 Est. Patient 13:59:09 CDT Neeraj Collins MD [facility] CPT-97466 Level 3 Est. Patient 15:19:43 CDT Renzo Thornton DO [facility] CPT-00097 Level 3 Est. Patient 18:10:26 CDT Sahara Rodriguez MD [facility] CPT-41015 Level 3 Est. Patient 14:49:50 CDT Vishal Hui MD [facility] CPT-31055 Level 4 Est. Patient 18:41:46 CDT Neeraj Collins MD [facility] CPT-43323 Level 4 Est. Patient 09:18:38 WORKFLOW DEVELOPER Vishal Hui MD [facility]-87688 Level 3 Est. Patient 14:43:55 WORKFLOW DEVELOPER Vishal Hui MD [facility] CPT-23447 Level 3 Est. Patient 15:26:33 WORKFLOW DEVELOPER Sahara Rodriguez MD PhD [facility]-78773 Level 3 Est. Patient 10:32:14 WORKFLOW DEVELOPER Vishal Hui MD [facility] CPT-04217 Level 3 Est. Patient 15:12:52 WORKFLOW DEVELOPER Vishal Hui MD [facility] CPT-17617 Level 4 Est. Patient 09:19:27 CDT Vishal Hui MD [facility] CPT-21744 Level 3 Est. Patient 15:53:00 CDT Renzo Thornton [facility] CPT-65327 Level 3 Est. Patient 15:50:30 CDT Renzo Thornton [facility] CPT-85536 Level 3 Est. Patient 16:55:24 CDT Vishal Hui MD [facility] Procedures Code Procedure Name Date Entry Date Standard Description CPT-94318 Nexplanon Removal with Reinsertion 14:09:32 CDT CPT-J7307 Nexplanon (Implant) 14:09:32 CDT CPT-OV Office Visit 14:09:32 CDT CPT-45039 UA w micro - LAB USE ONLY 16:21:13 CDT CPT-29610 Wet Mount - LAB USE ONLY 16:21:13 CDT CPT-32724 First Vx - Ix admin for Medicare patients 14:37:47 CDT CPT-89099 Fluzone Preservative Free Intramuscular Suspension 14:37 :47 CDT CPT-79929 Abx/Therapy Injection 13:54:22 CDT CPT-09878 Abx/Therapy Injection 08:47:09 CDT CPT-72301 Abx/Therapy Injection 13:29:56 CDT CPT-25734 Abx/Therapy Injection 08:36:16 CDT CPT-20215 Wet Mount - LAB USE ONLY 17:44:58 CDT CPT-88703 UA w micro - LAB USE ONLY 17:44:58 CDT CPT-91760 CMP - LAB USE ONLY 17:44:58 CDT CPT-75365 Venipuncture Draw Fee 17:44:58 CDT CPT-44546 Cervical Min 4V - XRAY USE ONLY 09:01:40 CDT CPT-63596 Chest 2V Frontal and Lat - XRAY USE ONLY 11:06:31 CDT CPT-13434 EKG Trac and Interp - XRAY USE ONLY 11:31:43 CDT 08/26 CPT-J3420 Vitamin B12 1000mcg (Cyanocobalamin) 08:10:26 WORKFLOW DEVELOPER 04/12 CPT-54388 Abx/Therapy Injection 08:10:26 WORKFLOW DEVELOPER CPT-G0438 Initial Annual Wellness Exam 19:01:01 WORKFLOW DEVELOPER CPT-J3420 Vitamin B12 1000mcg (Cyanocobalamin) 16:57:46 CDT 08/14 CPT-96004 Recombivax HB Injection Suspension 5 MCG/0.5ML 08:37:50 WORKFLOW DEVELOPER CPT-01099 Immunization Single Admin 08:37:50 WORKFLOW DEVELOPER CPT-J3420 Vitamin B12 1000mcg (Cyanocobalamin) 08:32:16 WORKFLOW DEVELOPER 03/11 CPT-37240 Abx/Therapy Injection 08:32:16 WORKFLOW DEVELOPER CPT-74834 Chest 2V Frontal and Lat 11:46:38 WORKFLOW DEVELOPER CPT-57887 Venipuncture Draw Fee 09:12:45 WORKFLOW DEVELOPER CPT-J3420 Vitamin B12 1000mcg (Cyanocobalamin) 08:50:15 WORKFLOW DEVELOPER 02/08 CPT-13476 Abx/Therapy Injection 08:50:15 WORKFLOW DEVELOPER CPT-Cryo Cryotherapy 10:19:35 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 Give Appropriate Flu Vaccine 09:22:16 CDT CPT-J3420 Vitamin B12 1000mcg (Cyanocobalamin) 19:08:57 CDT 01/11 CPT-73612 Abx/Therapy Injection 19:08:57 CDT CPT-J3420 Vitamin B12 1000mcg (Cyanocobalamin) 08:19:08 CDT 12/11 CPT-20820 Abx/Therapy Injection 08:19:08 CDT CPT-J3420 Vitamin B12 1000mcg (Cyanocobalamin) 14:48:00 CDT 11/09 CPT-07707 Abx/Therapy Injection 14:47:59 CDT CPT-J3420 Vitamin B12 1000mcg (Cyanocobalamin) 08:34:04 CDT 10/09 CPT-25318 Abx/Therapy Injection 08:34:04 CDT CPT-J3420 Vitamin B12 1000mcg (Cyanocobalamin) 09:18:52 CDT 09/11 CPT-09367 Abx/Therapy Injection 09:18:52 CDT CPT-J3420 Vitamin B12 1000mcg (Cyanocobalamin) 08:35:44 CDT 09/04 CPT-05549 Abx/Therapy Injection 08:35:44 CDT CPT-45131 Immunization Single Admin 11:07:16 CDT CPT-29458 Hepatitis B adult IM 11:07:16 CDT CPT-J3420 Vitamin B12 1000mcg (Cyanocobalamin) 11:00:49 CDT 08/28 CPT-J1040 Depo Medrol 80 mg (Methyl Prednisolone Acetate) 11:00: 49 CDT CPT-42587 Abx/Therapy Injection 11:00:49 CDT CPT-J1040 Depo Medrol 80 mg (Methyl Prednisolone Acetate) 09:16: 23 CDT CPT-J3420 Vitamin B12 1000mcg (Cyanocobalamin) 08:27:05 CDT 08/20 CPT-44909 Abx/Therapy Injection 08:27:05 CDT CPT-11789 Recombivax HB Injection Suspension 5 MCG/0.5ML 10:00:41 CDT CPT-44000 Administration single or combination vaccine inc oral 10 :00:41 CDT CPT-44305 Sono transvag pelvis non OB uterus ovaries cervix 16:36: 57 CDT CPT-73662 LS spine comp w obliq 09:50:55 WORKFLOW DEVELOPER CPT-74912 Abd compl w upright 09:50:55 WORKFLOW DEVELOPER CPT-J1100 Decadron 4mg (Dexamethasone) 15:51:24 WORKFLOW DEVELOPER CPT-J1030 Depo Medrol 40 mg (Methyl Prednisolone Acetate) 15:51: 24 WORKFLOW DEVELOPER CPT-45706 Abx/Therapy Injection 15:51:24 WORKFLOW DEVELOPER CPT-J1100 Decadron 4mg (Dexamethasone) 15:26:33 WORKFLOW DEVELOPER CPT-J1030 Depo Medrol 40 mg (Methyl Prednisolone Acetate) 15:26: 33 WORKFLOW DEVELOPER CPT-11454 Sono retroperitoneal complete kidneys and bladder 17:15: 30 CDT CPT-02762 Abd compl w upright 16:09:25 CDT CPT-J1100 Decadron 8mg (Dexamethasone) 17:07:57 CDT CPT-05797 Abx/Therapy Injection 17:07:57 CDT CPT-J1100 Decadron 8mg (Dexamethasone) 16:55:24 CDT CPT-72894 Chest 2V Frontal and Lat 16:32:44 CDT
--- OUTSIDE RECORDS SUMMARY | 2016-11-04 19:54 | XMS REPORT ---
Author Author [email or web address] Medical Staff Organization [facility] Address [address] [place], [place] [address] Phone [phone] Summary purpose TRANSITION OF CARE AUTO GENERATION [...] tests and/or laboratory data RESULTS Radiology Results [id number]:00 ABD SONO COMPLETE PACs Image DATE OF EXAM: 2015 [id number] COMPLETE SONO : RADIOLOGY REPORT DATE OF SERVICE: 06/18/15 HISTORY: Patient has left upper quadrant potential mass or hernia. ABDOMINAL COMPLETE SONOGRAM 0930 HOURS Patient is short stature and obese. This made evaluation somewhat difficult. The pancreas is not visualized. The aorta is normal in mid aspect. The proximal and distal ends of the aorta cannot be seen due to gas artifact. The gallbladder has been removed. The liver is somewhat difficult to penetrate likely from fatty infiltration. Not all of the liver is seen diagnostically. The common duct is not diagnostically seen. There is no ascites. The spleen is normal. The kidneys are normal. In the left upper quadrant of the abdomen there is a "fat" roll present. This creates the pseudomass. No mass in the subcutaneous fat or any hernia is identified in this area. IMPRESSION: No hernia or mass in the left upper quadrant. This sonographically appears to represent adipose tissue. Exam otherwise negative, but somewhat limited. DO Lizbeth Frederick 06/18/2015 09:53:00 / 06/18/2015 10:01:43 cc:Checo Esqueda APRN This document has been electronically Signed by: On: DATE OF EXAM: 2015 [id number] COMPLETE SONO : RADIOLOGY REPORT DATE OF SERVICE: 06/18/15 HISTORY: Patient has left upper quadrant potential mass or hernia. ABDOMINAL COMPLETE SONOGRAM 0930 HOURS Patient is short stature and obese. This made evaluation somewhat difficult. The pancreas is not visualized. The aorta is normal in mid aspect. The proximal and distal ends of the aorta cannot be seen due to gas artifact. The gallbladder has been removed. The liver is somewhat difficult to penetrate likely from fatty infiltration. Not all of the liver is seen diagnostically. The common duct is not diagnostically seen. There is no ascites. The spleen is normal. The kidneys are normal. In the left upper quadrant of the abdomen there is a "fat" roll present. This creates the pseudomass. No mass in the subcutaneous fat or any hernia is identified in this area. IMPRESSION: No hernia or mass in the left upper quadrant. This sonographically appears to represent adipose tissue. Exam otherwise negative, but somewhat limited. DO Lizbeth Frederick 06/18/2015 09:53:00 / 06/18/2015 10:01:43 cc:Checo Esqueda APRN This document has been electronically Signed by: MINO CALL DO On: [id number] Result Amended on 2015-06-18 at 20:18:34. Previous status was ID. History of procedures No procedures recorded for [...]
--- OUTSIDE RECORDS SUMMARY | 2016-11-04 19:55 | XMS REPORT | Clinical Summary ---
Author Author Admin, E Organization [facility] Address Unknown Phone Unavailable Allergies, Adverse Reactions, [...] 1 four times a day CLINDAMYCIN HCL 87506085018 No Longer Active Neeraj Collins MD Active KEFLEX 500 MG ORAL CAPS 1 cap QID by mouth CEPHALEXIN 16405102365 No Longer Active Neeraj Collins MD Active DIFLUCAN 150 MG TABS 1 pill every other day x 2 doses FLUCONAZOLE 38017370940 No Longer Active Sahara Rodriguez MD PhD Active MELATONIN 3 MG CAPS 2 po q hs MELATONIN 89966955087 No Longer Active Sahara Rodriguez MD PhD Active MULTIVITAMINS CAPS Take one by mouth daily MULTIPLE VITAMIN 24117484244 No Longer Active Sahara Rodriguez MD PhD Active BACTRIM DS 800-160 MG TAB 1 tab by mouth twice daily TRIMETHOPRIM-SULFAMETHOXAZOLE 19618085306 No Longer Active Sahara Rodriguez MD PhD Active [facility] PROBIOTIC ORAL CHEW 2 daily po PROBIOTIC PRODUCT 40968159976 No Longer Active Sahara Rodriguez MD PhD Active IBUPROFEN 600 MG TAB 1 po TID PRN IBUPROFEN 75850872303 Active Luigi Martínez TECHNICAL ADMINISTRATOR Active BACTRIM DS 800-160 MG TABS 1 po BID x 7 days SULFAMETHOXAZOLE-TRIMETHOPRIM 37833900609 No Longer Active Vishal Hui MD Active CHANTIX STARTING MONTH EARNEST 0.5 MG X 11 & 1 MG X 42 TABS 0.5mg daily for 3 days , then 0.5mg BID for 4 days, then 1mg BID VARENICLINE TARTRATE 10637564303 No Longer Active TAMARA Gray Active METOPROLOL TARTRATE 50 MG TAB 1 po bid METOPROLOL TARTRATE 25579288186 Active Vishal Hui MD Active TRAZODONE HCL 100 MG TAB take 1 at bedtime TRAZODONE HCL 96025747332 Active Vishal Hui MD Active AMLODIPINE BESYLATE 5 MG TABS 1 tablet by mouth daily AMLODIPINE BESYLATE 68879835692 Active Vishal Hui MD Active VERAPAMIL HCL CR 120 MG TAB CR 1 po bid VERAPAMIL HCL 99516285058 No Longer Active Vishal Hui MD Active METOPROLOL SUCCINATE 50 MG TB24 1 tablet by mouth daily METOPROLOL SUCCINATE 90636626277 No Longer Active Vishal Hui MD Active TRAMADOL HCL 50 MG TABS 1-2 po TID PRN Pain TRAMADOL HCL 71896812157 Active Vishal Hui MD Active SAPHRIS 5 MG SUBL 1 po bid ASENAPINE MALEATE 14451121052 Active Vishal Hui MD Active SAPHRIS 10 MG SUBL 1 tab po bid ASENAPINE MALEATE 87214319905 No Longer Active Vishal Hui MD Active LISINOPRIL 20 MG TABS 1 tab po qd LISINOPRIL 83105444595 No Longer Active Vishal Hui MD Active BENADRYL 25 MG CAP 2 po tid prn anxiety DIPHENHYDRAMINE HCL 46034399631 Active Vishal Hui MD Active LATUDA 80 MG TABS Take one by mouth daily LURASIDONE HCL 01738820253 Active Vishal Hui MD Active LATUDA 20 MG TABS Take one by mouth daily LURASIDONE HCL 60412796726 No Longer Active Vishal Hui MD Active TRAZODONE HCL 50 MG TABS 1/2 tab po qd prn for anxiety TRAZODONE HCL 04646588889 No Longer Active Vishal Hui MD Active PIROXICAM 20 MG CAPS 1 cap po qd PRN Pain PIROXICAM 39967541150 Active Vishal Hui MD Active OMEPRAZOLE 20 MG TBEC 1 po q a.m. 30min prior to first food intake OMEPRAZOLE 09495227132 Active Vishal Hui MD Active RANITIDINE HCL 150 MG CAPS 1 twice a day RANITIDINE HCL 73912739889 Active Vsihal Hui MD Active PROZAC 20 MG CAP Take one by mouth daily FLUOXETINE HCL 58297352091 Active Vishal Hui MD Active LINZESS 290 MCG CAPS Take one by mouth daily LINACLOTIDE 43044306985 Active Vishal Hui MD Active SAPHRIS 5 MG SUBL 1 tab po qd ASENAPINE MALEATE 96966302905 No Longer Active Vishal Hui MD Active ZALEPLON 10 MG CAPS 1 cap po every other night ZALEPLON 02008026670 No Longer Active Vishal Hiu MD Active LYRICA 50 MG CAPS 1 tab po TID PREGABALIN 77719361170 No Longer Active Vishal Hui MD Active LORATADINE 10 MG TABS 1 tab po qd LORATADINE 94846297118 No Longer Active Vishal Hui MD Active VERAPAMIL HCL ER 180 MG CR-TABS 1 tab po bid VERAPAMIL HCL 62354702374 No Longer Active Vishal Hui MD Active MIRALAX POWD 1 capfull once daily POLYETHYLENE GLYCOL 3350 41388608609 No Longer Active Vishal Hui MD Active PREDNISONE 20 MG TABS 1 tab po qd PREDNISONE 00466813308 No Longer Active Renzo Thornton DO Active LEVOFLOXACIN 500 MG TABS 1 tab po qd LEVOFLOXACIN 99752540548 No Longer Active Renzo Thornton DO Active BUSPIRONE HCL 15 MG TABS 1 tab po TID BUSPIRONE HCL 46720125960 No Longer Active Renzo Thornton DO Active BENZTROPINE MESYLATE 1 MG TABS 1 tab po qd BENZTROPINE MESYLATE 79433617089 No Longer Active Renzo Thornton DO Active ATENOLOL 25 MG TABS 1 tab po qd ATENOLOL 95555807248 No Longer Active Renzo Thornton DO Active ESCITALOPRAM OXALATE 20 MG TABS 1 tab po qd ESCITALOPRAM OXALATE 19939962591 No Longer Active Renzo Thornton DO Active ADVAIR DISKUS 250-50 MCG/DOSE AEPB 1 puff BID FLUTICASONE-SALMETEROL 18175234950 No Longer Active Renzo Thornton DO Active PREDNISONE 20 MG TAB 2 tabs daily for 3 days, 1 tab daily for 3 days, 1/2 tab daily for 2 days PREDNISONE 61925425515 No Longer Active Vishal Hui MD Active CEFDINIR 300 MG CAPS by mouth twice a day CEFDINIR 21066964527 No Longer Active Vishal Hui MD Active LANSOPRAZOLE 30 MG CPDR 1 cap po qd LANSOPRAZOLE 94260868348 No Longer Active Vishal Hui MD Active TOPAMAX 25 MG TABS 1 tab po bid TOPIRAMATE 78207492515 Active Vishal Hui MD Active MINIPRESS 2 MG CAPS 1 cap po at night PRAZOSIN HCL 94509601588 Active Vishal Hui MD Active BACLOFEN 20 MG TABS 1 tab po tid BACLOFEN 59879630007 Active Vishal Hui MD Active ADVAIR DISKUS 250-50 MCG/DOSE AEPB 1 puff BID ADVAIR DISKUS 250-50 MCG/DOSE AEPB FLUTICASONE-SALMETEROL Inactive ESCITALOPRAM OXALATE 20 MG TABS 1 tab po qd ESCITALOPRAM OXALATE 20 MG TABS 930857 ESCITALOPRAM OXALATE Inactive ATENOLOL 25 MG TABS 1 tab po qd ATENOLOL 25 MG TABS 578889 ATENOLOL Inactive BENZTROPINE MESYLATE 1 MG TABS 1 tab po qd BENZTROPINE MESYLATE 1 MG TABS 091654 BENZTROPINE MESYLATE Inactive BUSPIRONE HCL 15 MG TABS 1 tab po TID BUSPIRONE HCL 15 MG TABS 057286 BUSPIRONE HCL Inactive LEVOFLOXACIN 500 MG TABS 1 tab po qd LEVOFLOXACIN 500 MG TABS 922407 LEVOFLOXACIN Inactive PREDNISONE 20 MG TABS 1 tab po qd PREDNISONE 20 MG TABS 095771 PREDNISONE Inactive MIRALAX POWD 1 capfull once daily MIRALAX POWD 214709 POLYETHYLENE GLYCOL 3350 Inactive VERAPAMIL HCL ER 180 MG CR-TABS 1 tab po bid VERAPAMIL HCL ER 180 MG CR-TABS VERAPAMIL HCL Inactive LORATADINE 10 MG TABS 1 tab po qd LORATADINE 10 MG TABS 220226 LORATADINE Inactive LYRICA 50 MG CAPS 1 tab po TID LYRICA 50 MG CAPS PREGABALIN Inactive ZALEPLON 10 MG CAPS 1 cap po every other night ZALEPLON 10 MG CAPS 313242 ZALEPLON Inactive SAPHRIS 5 MG SUBL 1 tab po qd SAPHRIS 5 MG SUBL ASENAPINE MALEATE Inactive TRAZODONE HCL 50 MG TABS 1/2 tab po qd prn for anxiety TRAZODONE HCL 50 MG TABS 950285 TRAZODONE HCL Inactive LATUDA 20 MG TABS Take one by mouth daily LATUDA 20 MG TABS LURASIDONE HCL Inactive LISINOPRIL 20 MG TABS 1 tab po qd LISINOPRIL 20 MG TABS 501853 LISINOPRIL Inactive SAPHRIS 10 MG SUBL 1 [...] po q hs MELATONIN 3 MG CAPS 871670 MELATONIN Inactive KEFLEX 500 MG ORAL CAPS 1 cap QID by mouth KEFLEX 500 MG ORAL CAPS 320774 CEPHALEXIN Inactive CLINDAMYCIN HCL 150 MG CAPS 1 four times a day CLINDAMYCIN HCL 150 MG CAPS 788746 CLINDAMYCIN HCL Inactive CEFDINIR 300 MG CAPS by mouth twice a day CEFDINIR 300 MG CAPS 635690 CEFDINIR Inactive PREDNISONE 20 MG TAB 2 tabs daily for 3 days, 1 tab daily for 3 days, 1/2 tab daily for 2 days PREDNISONE 20 MG TAB 051929 PREDNISONE Inactive BACTRIM DS 800-160 MG TABS 1 po BID x 7 days BACTRIM DS 800-160 MG TABS SULFAMETHOXAZOLE-TRIMETHOPRIM Inactive DIFLUCAN 150 MG TABS 1 pill every other day x 2 doses DIFLUCAN 150 MG TABS 615351 FLUCONAZOLE Inactive Vital Signs Date Name Value [...] U/L Chart Maintenance: outside labs entered on [employer] - Hematology leukocyte count, blood 8.9 10*3/mm3 hemoglobin, blood 13.2 g/dL platelet count 364 10*3/mm3 Lab Report: CBC, Comp. Metabolic Panel, Free Thyroxine (L), Thyroid Stim ... - Chemistry sodium, serum 140 mmol/L 474-898 4546/05/28 potassium, serum 4.2 mmol/L 3.5-5.2 chloride, serum [...] Panel - Chemistry sodium, serum 141 mmol/L [phone] potassium, serum 4.3 mmol/L 3.5-5.2 chloride, serum [...] Panel - Chemistry sodium, serum 139 mmol/L 936-648 8959/12/31 potassium, serum 4.8 mmol/L 3.5-5.2 chloride, serum 106 mmol/L 98-107 carbon dioxide, venous blood 24.3 mmol/L 21.0-32.0 blood glucose 90 mg/dL 65-110 urea nitrogen, blood 16 mg/dL 7-18 creatinine, serum 1.00 mg/dL 0.60-1.30 alanine aminotransferase (SGPT), serum 41 U/L aspartate aminotransferase (SGOT), serum 17 U/L 15-37 calcium, serum 8.6 mg/dL 8.5-10.1 bilirubin, serum, total 0.30 mg/dL 0.00-1.00 cholesterol, serum 108 mg/dL 882-301 3512/12/31 triglyceride, serum, fasting 120 mg/dL 30-200 HDL cholesterol, serum 28 mg/dL 32-96 LDL cholesterol, serum 56 mg/dL 0-130 Lab Report: MICROALBUMIN - Chemistry albumin/creatinine ratio, urine < 30 mg/g mg/g{creat} 0-29 Lab Report: MICROALBUMIN - Lab microalbumin, urine 10 0-19 Lab Report: UADIP W/MICRO, AUTO, [facility] [place] - Chemistry protein, total urine random Negative [...] semiquantitative 7.0 5.0-8.5 Lab Report: Varicella-Zoater Inga IgG,IgM/78258, HEP Be Antibody/556, RUB ... - Serology rubella antibody, serum, IgG 2.88 Encounters Code Encounter Date Provider Facility [facility]-62127 Level 4 Est. Patient 13:59:09 CDT Neeraj Collins MD [facility]-35948 Level 3 Est. Patient 15:19:43 CDT Renzo Thornton DO [facility]-12298 Level 3 Est. Patient 18:10:26 CDT Sahara Rodriguez MD PhD [facility]-39895 Level 3 Est. Patient 14:49:50 CDT Vishal Hui MD [facility]-61006 Level 4 Est. Patient 18:41:46 CDT Neeraj Collins MD [facility]-22638 Level 4 Est. Patient 09:18:38 FAMILY NURSE PRACTITIONER Vishal Hui MD [facility]-83507 Level 3 Est. Patient 14:43:55 FAMILY NURSE PRACTITIONER Vishal Hui MD [facility]-67933 Level 3 Est. Patient 15:26:33 FAMILY NURSE PRACTITIONER Sahara Rodriguez MD PhD [facility][note 3]99514 Level 3 Est. Patient 10:32:14 FAMILY NURSE PRACTITIONER Vishal Hui MD [facility] CPT-33949 Level 3 Est. Patient 15:12:52 FAMILY NURSE PRACTITIONER Vishal Hui MD [facility] CPT-39626 Level 4 Est. Patient 09:19:27 CDT Vishal Hui MD [facility] CPT-04286 Level 3 Est. Patient 15:53:00 CDT Renzo Thornton [facility] CPT-47542 Level 3 Est. Patient 15:50:30 CDT Renzo Thornton [facility] CPT-40912 Level 3 Est. Patient 16:55:24 CDT Vishal Hui MD [facility] Procedures Code Procedure Name Date Entry Date Standard Description CPT-09709 Recombivax HB Injection Suspension 5 MCG/0.5ML 10:00:41 CDT CPT-95734 Administration single or combination vaccine inc oral 10 :00:41 CDT CPT-63052 Sono transvag pelvis non OB uterus ovaries cervix 16:36: 57 CDT CPT-98852 LS spine comp w obliq 09:50:55 FAMILY NURSE PRACTITIONER CPT-06142 Abd compl w upright 09:50:55 FAMILY NURSE PRACTITIONER CPT-J1100 Decadron 4mg (Dexamethasone) 15:51:24 FAMILY NURSE PRACTITIONER CPT-J1030 Depo Medrol 40 mg (Methyl Prednisolone Acetate) 15:51: 24 FAMILY NURSE PRACTITIONER CPT-71099 Abx/Therapy Injection 15:51:24 FAMILY NURSE PRACTITIONER CPT-J1100 Decadron 4mg (Dexamethasone) 15:26:33 FAMILY NURSE PRACTITIONER CPT-J1030 Depo Medrol 40 mg (Methyl Prednisolone Acetate) 15:26: 33 FAMILY NURSE PRACTITIONER CPT-19166 Sono retroperitoneal complete kidneys and bladder 17:15: 30 CDT CPT-64978 Abd compl w upright 16:09:25 CDT CPT-J1100 Decadron 8mg (Dexamethasone) 17:07:57 CDT CPT-56860 Abx/Therapy Injection 17:07:57 CDT CPT-J1100 Decadron 8mg (Dexamethasone) 16:55:24 CDT CPT-66070 Chest 2V Frontal and Lat 16:32:44 CDT
--- OUTSIDE RECORDS SUMMARY | 2016-11-04 19:58 | XMS REPORT | Clinical Summary ---
Author Author Admin, GitHub Organization [facility] Address Unknown Phone Unavailable Allergies, Adverse Reactions, [...] Shortness of breath 786.05 Active Fabiola Johnson CHANGER FIXER Shortness of breath Nocturnal hypoxia 799.02 Active Fabiola Johnson CHANGER FIXER Hypoxemia Neck pain 723.1 Active Luigi Martínez CHANGER FIXER Cervicalgia Vaginal discharge 623.5 Active Neeraj [...] times daily PRN Pain 2015 DICLOFENAC SODIUM 61023501287 Active Vishal Hui MD Active DICLOFENAC POTASSIUM TABS Take 1 tablet twice a day (pt. is not sure of the dose.) DICLOFENAC POTASSIUM TABS 97131324984 No Longer Active Vishal Hui MD Active VERAPAMIL HCL ER 120 MG ORAL CR-TABS Take 1 tablet by mouth twice a day. VERAPAMIL HCL 88472797018 Active Vishal Hui MD Active FLAGYL 500 MG TAB 1 tablet by mouth bid METRONIDAZOLE 18788201712 No Longer Active Vishal Hui MD Active ABILIFY MAINTENA 400 MG IM SUSR 400mg injection every 28 days ARIPIPRAZOLE 88756396310 Active Silvia Casey CONTRACT ADMINISTRATION MANAGER Active FLUTICASONE PROPIONATE 50 MCG/ACT SUSP 2 sprays each nostril daily before bed. FLUTICASONE PROPIONATE 20246120569 Active Fabiola Johnson APRN Active ADZENYS XR-ODT 6.3 MG ORAL TBED 1 tab po daily for ADHD AMPHETAMINE 36117893710 Active Fabiola Johnson APRN Active BENADRYL 25 MG CAP 4 po at bedtime for insomnia DIPHENHYDRAMINE HCL 77025243727 Active Fabiola Johnson APRN Active KLONOPIN 1 MG ORAL TABS 1 tab po TID CLONAZEPAM 01234327231 Active Fabiola Johnson APRN Active VALIUM 5 MG TAB Take 1-2 tablets daily DIAZEPAM 14374505873 No Longer Active Fabiola Johnson APRN Active METOPROLOL TARTRATE 25 MG ORAL TABS 1/2 tablet twice daily for heart rate and blood pressure METOPROLOL TARTRATE 95155550874 No Longer Active Fabiola Johnson APRN Active MIRALAX ORAL POWD 17GMS DAILY IN WATER POLYETHYLENE GLYCOL 3350 21053457722 Active Vishal Hui MD Active VIIBRYD 10 MG ORAL TABS Take 1 tablet once a day VILAZODONE HCL 46674841033 Active Ahmet Carbajal MD Active MIRALAX PACK 1 po qd PRN Constipation POLYETHYLENE GLYCOL 3350 24646517285 No Longer Active Ahmet Carbajal MD Active MINIPRESS 2 MG CAPS 4 cap po at night PRAZOSIN HCL 55064585278 No Longer Active Ahmet Carbajal MD Active PIROXICAM 20 MG CAPS 1 cap po qd PRN Pain PIROXICAM 67818642160 No Longer Active Ahmet Carbajal MD Active TRAMADOL HCL 50 MG TABS 1-2 po TID PRN Pain TRAMADOL HCL 63406152590 No Longer Active Ahmet Carbajal MD Active METOPROLOL TARTRATE 50 MG TAB 1 po bid METOPROLOL TARTRATE 18649125247 No Longer Active Ahmet Carbajal MD Active ABILIFY 15 MG ORAL TABS 1 tab daily ARIPIPRAZOLE 25002760969 No Longer Active Ahmet Carbajal MD Active PROZAC 20 MG ORAL CAPS 1 tab daily FLUOXETINE HCL 52050601404 No Longer Active Ahmet Carbajal MD Active AMBIEN 5 MG ORAL TABS 1 tab at bedtime ZOLPIDEM TARTRATE 31241538115 No Longer Active Ahmet Carbajal MD Active PREDNISONE 20 MG TAB 2 tabs daily for 4 days, 1 tab daily for 4 days, 1/2 tab daily for 4 days PREDNISONE 28673017049 No Longer Active Ahmet Carbajal MD Active KEFLEX 500 MG CAP 1 po TID x 10 days CEPHALEXIN 89897730389 No Longer Active Vishal Hui MD Active IMITREX 50 MG ORAL TABS 1/2 tab every 6 hours prn SUMATRIPTAN SUCCINATE 83114680645 Active Pacollina Mauricio NORIEGA Active TOPAMAX 50 MG ORAL TABS 1 tab twice daily TOPIRAMATE 39425354297 Active Vishal Hui MD Active SAPHRIS 5 MG SUBL 1 po bid ASENAPINE MALEATE 86823317965 No Longer Active Luigi Martínez APRN Active LATUDA 80 MG TABS Take one by mouth daily LURASIDONE HCL 68900696671 No Longer Active Pacolljanee Martínez APRN Active AMLODIPINE BESYLATE 5 MG TABS 1 tablet by mouth daily AMLODIPINE BESYLATE 53235714680 No Longer Active Luigi Martínez APRN Active AMITRIPTYLINE HCL 100 MG TAB one at hs AMITRIPTYLINE HCL 96060013405 No Longer Active Vishal Hui MD Active TRAZODONE HCL 100 MG TAB take 1 at bedtime TRAZODONE HCL 48436392704 No Longer Active Vishal Hui MD Active VYVANSE 40 MG CAPS 1 daily, LISDEXAMFETAMINE DIMESYLATE 82120358605 No Longer Active Vishal Hui MD Active IBUPROFEN 600 MG TAB 1 po TID PRN IBUPROFEN 08286480915 No Longer Active Vishal Hui MD Active PROZAC 20 MG CAP Take one by mouth daily FLUOXETINE HCL 82242381499 No Longer Active Vishal Hui MD Active ZOFRAN 4 MG TABS 1 po q6hr PRN Nausea ONDANSETRON HCL Active Vishal Hui MD Active BACTRIM DS 800-160 MG TABS 1 pill by mouth twice daily SULFAMETHOXAZOLE-TRIMETHOPRIM 97652926359 No Longer Active Sahara Rodriguez MD PhD Active DIFLUCAN 150 MG TAB 1 tablet by mouth daily FLUCONAZOLE 45187157158 No Longer Active Vishal Hui MD Active TIZANIDINE HCL 4 MG TABS 1 po q6hr PRN Muscle Spasm/Back Pain TIZANIDINE HCL 13307015840 Active Vishal Hui MD Active CLINDAMYCIN HCL 150 MG CAPS 1 four times a day CLINDAMYCIN HCL 89053754701 No Longer Active Neeraj Collins MD Active KEFLEX 500 MG ORAL CAPS 1 cap QID by mouth CEPHALEXIN 34492483912 No Longer Active Neeraj Collins MD Active DIFLUCAN 150 MG TABS 1 pill every other day x 2 doses FLUCONAZOLE 17245534345 No Longer Active Sahara Rodriguez MD PhD Active MELATONIN 3 MG CAPS 2 po q hs MELATONIN 00653517307 No Longer Active Sahara Rodriguez MD PhD Active MULTIVITAMINS CAPS Take one by mouth daily MULTIPLE VITAMIN 55266016273 No Longer Active Sahara Rodriguez MD PhD Active BACTRIM DS 800-160 MG TAB 1 tab by mouth twice daily TRIMETHOPRIM-SULFAMETHOXAZOLE 05960324868 No Longer Active Sahara Rodriguez MD PhD Active [facility] PROBIOTIC ORAL CHEW 2 daily po PROBIOTIC PRODUCT 99271762389 No Longer Active Sahara Rodriguez MD PhD Active BACTRIM DS 800-160 MG TABS 1 po BID x 7 days SULFAMETHOXAZOLE-TRIMETHOPRIM 14208445656 No Longer Active Vishal Hui MD Active CHANTIX STARTING MONTH EARNEST 0.5 MG X 11 & 1 MG X 42 TABS 0.5mg daily for 3 days , then 0.5mg BID for 4 days, then 1mg BID VARENICLINE TARTRATE 12651505226 No Longer Active TAMARA Gray Active VERAPAMIL HCL CR 120 MG TAB CR 1 po bid VERAPAMIL HCL 53754265000 No Longer Active Vishal Hui MD Active METOPROLOL SUCCINATE 50 MG TB24 1 tablet by mouth daily METOPROLOL SUCCINATE 29666649478 No Longer Active Vishal Hui MD Active SAPHRIS 10 MG SUBL 1 tab po bid ASENAPINE MALEATE 62667701978 No Longer Active Vishal Hui MD Active LISINOPRIL 20 MG TABS 1 tab po qd LISINOPRIL 52990923503 No Longer Active Vishal Hui MD Active LATUDA 20 MG TABS Take one by mouth daily LURASIDONE HCL 86929784255 No Longer Active Vishal Hui MD Active TRAZODONE HCL 50 MG TABS 1/2 tab po qd prn for anxiety TRAZODONE HCL 90407889465 No Longer Active Vishal Hui MD Active OMEPRAZOLE 20 MG TBEC 1 po q a.m. 30min prior to first food intake OMEPRAZOLE 00327907371 Active Vishal Hui MD Active RANITIDINE HCL 150 MG CAPS 1 twice a day RANITIDINE HCL 92753672788 Active Jillina Frazell CHANGER FIXER Active LINZESS 290 MCG CAPS Take one by mouth daily LINACLOTIDE 77796591260 No Longer Active Vishal Hui MD Active SAPHRIS 5 MG SUBL 1 tab po qd ASENAPINE MALEATE 07564943600 No Longer Active Vishal Hui MD Active ZALEPLON 10 MG CAPS 1 cap po every other night ZALEPLON 59667589704 No Longer Active Vishal Hui MD Active LYRICA 50 MG CAPS 1 tab po TID PREGABALIN 74002965655 No Longer Active Vishal Hui MD Active LORATADINE 10 MG TABS 1 tab po qd LORATADINE 86918594972 No Longer Active Vishal Hui MD Active VERAPAMIL HCL ER 180 MG CR-TABS 1 tab po bid VERAPAMIL HCL 07847821739 No Longer Active Vishal uHi MD Active MIRALAX POWD 1 capfull once daily POLYETHYLENE GLYCOL 3350 90801693300 No Longer Active Vishal Hui MD Active PREDNISONE 20 MG TABS 1 tab po qd PREDNISONE 74426518545 No Longer Active Renzo Thornton DO Active LEVOFLOXACIN 500 MG TABS 1 tab po qd LEVOFLOXACIN 22971845770 No Longer Active Renzo Thornton DO Active BUSPIRONE HCL 15 MG TABS 1 tab po TID BUSPIRONE HCL 64597725791 No Longer Active Renzo Thornton DO Active BENZTROPINE MESYLATE 1 MG TABS 1 tab po qd BENZTROPINE MESYLATE 33757152064 No Longer Active Renzo Thornton DO Active ATENOLOL 25 MG TABS 1 tab po qd ATENOLOL 36454548508 No Longer Active Renzo Thornton DO Active ESCITALOPRAM OXALATE 20 MG TABS 1 tab po qd ESCITALOPRAM OXALATE 88610980655 No Longer Active Rnezo Thornton DO Active ADVAIR DISKUS 250-50 MCG/DOSE AEPB 1 puff BID FLUTICASONE-SALMETEROL 19779075703 No Longer Active Renzo Thornton DO Active PREDNISONE 20 MG TAB 2 tabs daily for 3 days, 1 tab daily for 3 days, 1/2 tab daily for 2 days PREDNISONE 52345677182 No Longer Active Vishal Hui MD Active CEFDINIR 300 MG CAPS by mouth twice a day CEFDINIR 78312954353 No Longer Active Vishal Hui MD Active LANSOPRAZOLE 30 MG CPDR 1 cap po qd LANSOPRAZOLE 68522520848 No Longer Active Vishal Hui MD Active BACLOFEN 20 MG TABS 1 tab po tid BACLOFEN 10753257262 No Longer Active Vishal Hui MD Active ADVAIR DISKUS 250-50 MCG/DOSE AEPB 1 puff BID ADVAIR DISKUS 250-50 MCG/DOSE AEPB FLUTICASONE-SALMETEROL Inactive ESCITALOPRAM OXALATE 20 MG TABS 1 tab po qd ESCITALOPRAM OXALATE 20 MG TABS 920464 ESCITALOPRAM OXALATE Inactive ATENOLOL 25 MG TABS 1 tab po qd ATENOLOL 25 MG TABS 492552 ATENOLOL Inactive BENZTROPINE MESYLATE 1 MG TABS 1 tab po qd BENZTROPINE MESYLATE 1 MG TABS 128982 BENZTROPINE MESYLATE Inactive BUSPIRONE HCL 15 MG TABS 1 tab po TID BUSPIRONE HCL 15 MG TABS 941477 BUSPIRONE HCL Inactive LEVOFLOXACIN 500 MG TABS 1 tab po qd LEVOFLOXACIN 500 MG TABS 483358 LEVOFLOXACIN Inactive PREDNISONE 20 MG TABS 1 tab po qd PREDNISONE 20 MG TABS 766908 PREDNISONE Inactive MIRALAX POWD 1 capfull once daily MIRALAX POWD 671485 POLYETHYLENE GLYCOL 3350 Inactive VERAPAMIL HCL ER 180 MG CR-TABS 1 tab po bid VERAPAMIL HCL ER 180 MG CR-TABS VERAPAMIL HCL Inactive LORATADINE 10 MG TABS 1 tab po qd LORATADINE 10 MG TABS 494565 LORATADINE Inactive LYRICA 50 MG CAPS 1 tab po TID LYRICA 50 MG CAPS PREGABALIN Inactive ZALEPLON 10 MG CAPS 1 cap po every other night ZALEPLON 10 MG CAPS 721357 ZALEPLON Inactive SAPHRIS 5 MG SUBL 1 tab po qd SAPHRIS 5 MG SUBL ASENAPINE MALEATE Inactive TRAZODONE HCL 50 MG TABS 1/2 tab po qd prn for anxiety TRAZODONE HCL 50 MG TABS 793224 TRAZODONE HCL Inactive LATUDA 20 MG TABS Take one by mouth daily LATUDA 20 MG TABS LURASIDONE HCL Inactive LISINOPRIL 20 MG TABS 1 tab po qd LISINOPRIL 20 MG TABS 916745 LISINOPRIL Inactive SAPHRIS 10 MG SUBL 1 [...] twice daily BACTRIM DS 800-160 MG TAB 993442 TRIMETHOPRIM-SULFAMETHOXAZOLE Inactive MULTIVITAMINS CAPS Take one by mouth daily MULTIVITAMINS CAPS MULTIPLE VITAMIN Inactive MELATONIN 3 MG CAPS 2 po q hs MELATONIN 3 MG CAPS 109957 MELATONIN Inactive KEFLEX 500 MG ORAL CAPS 1 cap QID by mouth KEFLEX 500 MG ORAL CAPS 344573 CEPHALEXIN Inactive CLINDAMYCIN HCL 150 MG CAPS 1 four times a day CLINDAMYCIN HCL 150 MG CAPS 518939 CLINDAMYCIN HCL Inactive DIFLUCAN 150 MG TAB 1 tablet by mouth daily DIFLUCAN 150 MG TAB 286039 FLUCONAZOLE Inactive PROZAC 20 MG CAP Take one by mouth daily PROZAC 20 MG CAP 839440 FLUOXETINE HCL Inactive IBUPROFEN 600 MG TAB 1 po TID PRN IBUPROFEN 600 MG TAB IBUPROFEN Inactive VYVANSE 40 MG CAPS 1 daily, VYVANSE 40 MG CAPS LISDEXAMFETAMINE DIMESYLATE Inactive TRAZODONE HCL 100 MG TAB take 1 at bedtime TRAZODONE HCL 100 MG TAB 162985 TRAZODONE HCL Inactive AMITRIPTYLINE HCL 100 MG TAB one at hs AMITRIPTYLINE HCL 100 MG TAB 610807 AMITRIPTYLINE HCL Inactive AMLODIPINE BESYLATE 5 MG TABS 1 tablet by mouth daily AMLODIPINE BESYLATE 5 MG TABS 480966 AMLODIPINE BESYLATE Inactive LATUDA 80 MG TABS Take one by mouth daily LATUDA 80 MG TABS LURASIDONE HCL Inactive SAPHRIS 5 MG SUBL 1 po bid SAPHRIS 5 MG SUBL ASENAPINE MALEATE Inactive PREDNISONE 20 MG TAB 2 tabs daily for 4 days, 1 tab daily for 4 days, 1/2 tab daily for 4 days PREDNISONE 20 MG TAB 099605 PREDNISONE Inactive AMBIEN 5 MG ORAL TABS 1 tab at bedtime AMBIEN 5 MG ORAL TABS 351071 ZOLPIDEM TARTRATE Inactive PROZAC 20 MG ORAL CAPS 1 tab daily PROZAC 20 MG ORAL CAPS 410541 FLUOXETINE HCL Inactive ABILIFY 15 MG ORAL TABS 1 tab daily ABILIFY 15 MG ORAL TABS 248580 ARIPIPRAZOLE Inactive METOPROLOL TARTRATE 50 MG TAB 1 po bid METOPROLOL TARTRATE 50 MG TAB 574600 METOPROLOL TARTRATE Inactive TRAMADOL HCL 50 MG TABS 1-2 po TID PRN Pain TRAMADOL HCL 50 MG TABS 751167 TRAMADOL HCL Inactive PIROXICAM 20 MG CAPS 1 cap po qd PRN Pain PIROXICAM 20 MG CAPS 274382 PIROXICAM Inactive MINIPRESS 2 MG CAPS 4 cap po at night MINIPRESS 2 MG CAPS 767123 PRAZOSIN HCL Inactive MIRALAX PACK 1 po qd PRN Constipation MIRALAX PACK 548756 POLYETHYLENE GLYCOL 3350 Inactive METOPROLOL TARTRATE 25 MG ORAL TABS 1/2 tablet twice daily for heart rate and blood pressure METOPROLOL TARTRATE 25 MG ORAL TABS 380354 METOPROLOL TARTRATE Inactive VALIUM 5 MG TAB Take 1-2 tablets daily VALIUM 5 MG TAB 118207 DIAZEPAM Inactive FLAGYL 500 MG TAB 1 tablet by mouth bid FLAGYL 500 MG TAB 800125 METRONIDAZOLE Inactive DICLOFENAC POTASSIUM TABS Take 1 tablet twice a day (pt. is not sure of the dose.) DICLOFENAC POTASSIUM TABS DICLOFENAC POTASSIUM TABS Inactive CEFDINIR 300 MG CAPS by mouth twice a day CEFDINIR 300 MG CAPS 195747 CEFDINIR Inactive PREDNISONE 20 MG TAB 2 tabs daily for 3 days, 1 tab daily for 3 days, 1/2 tab daily for 2 days PREDNISONE 20 MG TAB 118422 PREDNISONE Inactive BACTRIM DS 800-160 MG TABS 1 po BID x 7 days BACTRIM DS 800-160 MG TABS 19820521 SULFAMETHOXAZOLE-TRIMETHOPRIM Inactive DIFLUCAN 150 MG TABS 1 pill every other day x 2 doses DIFLUCAN 150 MG TABS 944310 FLUCONAZOLE Inactive BACTRIM DS 800-160 MG TABS 1 pill by mouth twice daily BACTRIM DS 800-160 MG TABS 449662 SULFAMETHOXAZOLE-TRIMETHOPRIM Inactive KEFLEX 500 MG CAP 1 po TID x 10 days KEFLEX 500 MG CAP 114997 CEPHALEXIN Inactive Advance Directives Directive Description Start [...] % 11.6-14.8 platelet count 394 10^3/MM^3 10*3/mm3 886-150 8795/01/11 leukocyte count, blood 13.8 10^3/MM^3 10*3/mm3 4.6-10.2 [...] Panel - Chemistry sodium, serum 139 mmol/L 186-836 0272/12/03 carbon dioxide, venous blood 28.5 mmol/L 21.0-32.0 [...] 5.5 % 4.3-6.0 cholesterol, serum 159 mg/dL 053-589 7938/12/03 triglyceride, serum, fasting 118 mg/dL 30-200 HDL [...] Panel - Chemistry sodium, serum 139 mmol/L 937-465 0171/12/22 carbon dioxide, venous blood 26.8 mmol/L 21.0-32.0 potassium, serum 4.2 mmol/L 3.5-5.2 chloride, serum 103 mmol/L 98-107 blood glucose 115 mg/dL 65-110 urea nitrogen, blood 20 mg/dL 7-18 creatinine, serum 0.90 mg/dL 0.55-1.30 alanine aminotransferase (SGPT), serum 38 U/L - aspartate aminotransferase (SGOT), serum 19 U/L 15-37 calcium, serum 8.6 mg/dL 8.5-10.1 bilirubin, serum, total 0.30 mg/dL 0.00-1.00 sodium, serum 139 mmol/L 138-567 3868/01/11 carbon dioxide, venous blood 26.6 mmol/L 21.0-32.0 potassium, serum 4.1 mmol/L 3.5-5.2 chloride, serum 100 mmol/L 98-107 blood glucose 86 mg/dL 65-110 urea nitrogen, blood 16 mg/dL 7-18 creatinine, serum 1.00 mg/dL 0.55-1.30 alanine aminotransferase (SGPT), serum 48 U/L aspartate aminotransferase (SGOT), serum 17 U/L 15-37 calcium, serum 9.1 mg/dL 8.5-10.1 bilirubin, serum, total 0.40 mg/dL 0.00-1.00 sodium, serum 142 mmol/L 931-542 4653/06/08 carbon dioxide, venous blood 27.6 mmol/L 21.0-32.0 potassium, serum 4.0 mmol/L 3.5-5.2 chloride, serum 105 mmol/L 98-107 blood glucose 95 mg/dL 65-110 urea nitrogen, blood 8 mg/dL 7-18 creatinine, serum 0.75 mg/dL 0.55-1.30 alanine aminotransferase (SGPT), serum 49 U/L aspartate aminotransferase (SGOT), serum 28 U/L 15-37 calcium, serum 9.4 mg/dL 8.5-10.1 bilirubin, serum, total 0.30 mg/dL 0.00-1.00 sodium, serum 140 mmol/L 769-447 1483/08/08 carbon dioxide, venous blood 33.7 mmol/L 21.0-32.0 [...] Rate - Chemistry sodium, serum 139 mmol/L 954-238 9629/12/11 carbon dioxide, venous blood 25.4 mmol/L 21.0-32.0 [...] mg/dL Encounters Code Encounter Date Provider Facility CPT-93997 Level 3 Est. Patient 13:29:16 CDT Vishal Hui MD [facility] CPT-43857 Level 3 Est. Patient 14:27:52 CDT Neeraj Collins MD [facility] CPT-93323 Level 3 Est. Patient 08:56:03 CDT Luigi Martínez [facility] CPT-03748 Level 4 Est. Patient 12:11:48 CDT Fabiola Johnson [facility] CPT-56946 Level 3 New Patient 16:53:37 CDT Albert Caldera MD [facility] CPT-19267 Level 3 Est. Patient 11:25:49 CDT Renzo W Norberto [facility] CPT-53301 Level 3 Est. Patient 15:22:01 CDT Ahmet Carbajal MD [facility] CPT-03365 Level 4 Est. Patient 09:00:51 CRIMINAL RESEARCHER Vishal Hui MD [facility] CPT-72096 Level 3 Est. Patient 11:37:33 CRIMINAL RESEARCHER Vishal Hui MD [facility] CPT-22340 Level 3 Est. Patient 08:41:09 CRIMINAL RESEARCHER Vishal Hui MD [facility] CPT-44579 Level 4 Est. Patient 10:19:35 CRIMINAL RESEARCHER Vishal Hui MD [facility] CPT-53085 Level 3 Est. Patient 13:35:45 CDT Vishal Hui MD [facility] CPT-30624 Level 4 Est. Patient 10:08:37 CDT Vishal Hui MD [facility] CPT-70675 Level 3 Est. Patient 11:22:10 CDT Vishal Hui MD [facility] CPT-12794 Level 3 Est. Patient 11:03:32 CDT Sahara Rodriguez MD PhD [facility]-88697 Level 3 Est. Patient 09:41:35 CDT Vishal Hui MD [facility] CPT-93524 Level 3 Est. Patient 12:00:41 CDT Neeraj Collins MD [facility] CPT-69099 Level 3 Est. Patient 09:16:24 CDT Vishal Hui MD [facility] CPT-78269 Level 4 Est. Patient 13:59:09 CDT Neeraj Collins MD [facility] CPT-30142 Level 3 Est. Patient 15:19:43 CDT Renzo Thornton DO [facility] CPT-44593 Level 3 Est. Patient 18:10:26 CDT Sahara Rodriguez MD PhD [facility] CPT-75703 Level 3 Est. Patient 14:49:50 CDT Vishal Hui MD [facility] CPT-30579 Level 4 Est. Patient 18:41:46 CDT Neeraj Collins MD [facility] CPT-31543 Level 4 Est. Patient 09:18:38 CRIMINAL RESEARCHER Vishal Hui MD [facility] CPT-93537 Level 3 Est. Patient 14:43:55 CRIMINAL RESEARCHER Vishal Hui MD [facility] CPT-68630 Level 3 Est. Patient 15:26:33 CRIMINAL RESEARCHER Sahara Rodriguez MD PhD [facility] CPT-90362 Level 3 Est. Patient 10:32:14 CRIMINAL RESEARCHER Vishal Hui MD [facility] CPT-94037 Level 3 Est. Patient 15:12:52 CRIMINAL RESEARCHER Vishal Hui MD [facility] CPT-04885 Level 4 Est. Patient 09:19:27 CDT Vishal Hui MD [facility] CPT-64649 Level 3 Est. Patient 15:53:00 CDT Renzo Thornton [facility] CPT-52240 Level 3 Est. Patient 15:50:30 CDT Renzo Thornton [facility] CPT-82526 Level 3 Est. Patient 16:55:24 CDT Vishal Hui MD [facility] Procedures Code Procedure Name Date Entry Date Standard Description CPT-20933 Abx/Therapy Injection 13:29:56 CDT CPT-79606 Abx/Therapy Injection 08:36:16 CDT CPT-77434 Wet Mount - LAB USE ONLY 17:44:58 CDT CPT-24057 UA w micro - LAB USE ONLY 17:44:58 CDT CPT-90285 CMP - LAB USE ONLY 17:44:58 CDT CPT-21616 Venipuncture Draw Fee 17:44:58 CDT CPT-96883 Cervical Min 4V - XRAY USE ONLY 09:01:40 CDT CPT-44239 Chest 2V Frontal and Lat - XRAY USE ONLY 11:06:31 CDT CPT-82062 EKG Trac and Interp - XRAY USE ONLY 11:31:43 CDT 08/26 CPT-J3420 Vitamin B12 1000mcg (Cyanocobalamin) 08:10:26 CRIMINAL RESEARCHER 04/12 CPT-44164 Abx/Therapy Injection 08:10:26 CRIMINAL RESEARCHER CPT-G0438 Initial Annual Wellness Exam 19:01:01 CRIMINAL RESEARCHER CPT-J3420 Vitamin B12 1000mcg (Cyanocobalamin) 16:57:46 CDT 08/14 CPT-62131 Recombivax HB Injection Suspension 5 MCG/0.5ML 08:37:50 CRIMINAL RESEARCHER CPT-00107 Immunization Single Admin 08:37:50 CRIMINAL RESEARCHER CPT-J3420 Vitamin B12 1000mcg (Cyanocobalamin) 08:32:16 CRIMINAL RESEARCHER 03/11 CPT-96570 Abx/Therapy Injection 08:32:16 CRIMINAL RESEARCHER CPT-08708 Chest 2V Frontal and Lat 11:46:38 CRIMINAL RESEARCHER CPT-92706 Venipuncture Draw Fee 09:12:45 CRIMINAL RESEARCHER CPT-J3420 Vitamin B12 1000mcg (Cyanocobalamin) 08:50:15 CRIMINAL RESEARCHER 02/08 CPT-44372 Abx/Therapy Injection 08:50:15 CRIMINAL RESEARCHER CPT-Cryo Cryotherapy 10:19:35 CRIMINAL RESEARCHER CPT-000 Give Appropriate Flu Vaccine 09:22:16 CDT CPT-J3420 Vitamin B12 1000mcg (Cyanocobalamin) 19:08:57 CDT 01/11 CPT-11125 Abx/Therapy Injection 19:08:57 CDT CPT-J3420 Vitamin B12 1000mcg (Cyanocobalamin) 08:19:08 CDT 12/11 CPT-53772 Abx/Therapy Injection 08:19:08 CDT CPT-J3420 Vitamin B12 1000mcg (Cyanocobalamin) 14:48:00 CDT 11/09 CPT-09984 Abx/Therapy Injection 14:47:59 CDT CPT-J3420 Vitamin B12 1000mcg (Cyanocobalamin) 08:34:04 CDT 10/09 CPT-02955 Abx/Therapy Injection 08:34:04 CDT CPT-J3420 Vitamin B12 1000mcg (Cyanocobalamin) 09:18:52 CDT 09/11 CPT-87233 Abx/Therapy Injection 09:18:52 CDT CPT-J3420 Vitamin B12 1000mcg (Cyanocobalamin) 08:35:44 CDT 09/04 CPT-87580 Abx/Therapy Injection 08:35:44 CDT CPT-45207 Immunization Single Admin 11:07:16 CDT CPT-70517 Hepatitis B adult IM 11:07:16 CDT CPT-J3420 Vitamin B12 1000mcg (Cyanocobalamin) 11:00:49 CDT 08/28 CPT-J1040 Depo Medrol 80 mg (Methyl Prednisolone Acetate) 11:00: 49 CDT CPT-89845 Abx/Therapy Injection 11:00:49 CDT CPT-J1040 Depo Medrol 80 mg (Methyl Prednisolone Acetate) 09:16: 23 CDT CPT-J3420 Vitamin B12 1000mcg (Cyanocobalamin) 08:27:05 CDT 08/20 CPT-49450 Abx/Therapy Injection 08:27:05 CDT CPT-70480 Recombivax HB Injection Suspension 5 MCG/0.5ML 10:00:41 CDT CPT-85680 Administration single or combination vaccine inc oral 10 :00:41 CDT CPT-38315 Sono transvag pelvis non OB uterus ovaries cervix 16:36: 57 CDT CPT-56029 LS spine comp w obliq 09:50:55 CRIMINAL RESEARCHER CPT-45543 Abd compl w upright 09:50:55 CRIMINAL RESEARCHER CPT-J1100 Decadron 4mg (Dexamethasone) 15:51:24 CRIMINAL RESEARCHER CPT-J1030 Depo Medrol 40 mg (Methyl Prednisolone Acetate) 15:51: 24 CRIMINAL RESEARCHER CPT-31328 Abx/Therapy Injection 15:51:24 CRIMINAL RESEARCHER CPT-J1100 Decadron 4mg (Dexamethasone) 15:26:33 CRIMINAL RESEARCHER CPT-J1030 Depo Medrol 40 mg (Methyl Prednisolone Acetate) 15:26: 33 CRIMINAL RESEARCHER CPT-73369 Sono retroperitoneal complete kidneys and bladder 17:15: 30 CDT CPT-30056 Abd compl w upright 16:09:25 CDT CPT-J1100 Decadron 8mg (Dexamethasone) 17:07:57 CDT CPT-22802 Abx/Therapy Injection 17:07:57 CDT CPT-J1100 Decadron 8mg (Dexamethasone) 16:55:24 CDT CPT-30797 Chest 2V Frontal and Lat 16:32:44 CDT
--- OUTSIDE RECORDS SUMMARY | 2016-11-04 20:01 | XMS REPORT | Clinical Summary ---
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 V72.31 Active Suzan [...] APRN Sinus tachycardia ICD-427.89 Inactive Suzan Boo MISSILE PAD MECH[employer]IC Pneumonia, organism unspecified ICD-486 Inactive Vishal Hui [...] abnormal blood chemistry ICD-790.6 Jim Hui MD Cellulitis ICD-682.9 Jim Hui MD Boils, recurrent ICD-680.9 Inactive [...] pain, acute ICD-786.50 Inactive Albert Caldera MD Abdominal pain ICD-789.00 Inactive Vishal Hui MD Shortness of breath [...] TABS 1 by mouth for yeast FLUCONAZOLE 42905974595 Active Suzan Boo APRN Active BACTRIM DS 800-160 MG TABS 1 twice a day SULFAMETHOXAZOLE- TRIMETHOPRIM 61445095776 Active Suzan Boo APRN Active EQ NICOTINE 21 MG/24HR TRANS PT24 Apply daily to stop smoking NICOTINE 42430573359 No Longer Active Suzan Boo APRN Active PREDNISONE 10 MG TABS 2 daily for 5 days then 1 daily for 5 days PREDNISONE 71206278602 No Longer Active Suzan Boo APRN Active LEVAQUIN 500 MG TABS 1 daily for infection LEVOFLOXACIN 44777603917 No Longer Active Suzan Boo APRN Active TROPICAMIDE 0.5 % OPHTH SOLN 1 drop PRN eye spasms TROPICAMIDE 99614787975 No Longer Active Suzan Boo APRN Active PREDNISONE 20 MG TAB 1 tablet daily x 4 days PREDNISONE 91866466958 No Longer Active Suzan Boo APRN Active ACETAMINOPHEN-CODEINE 120-12 MG/5ML SOLN 5 ml by mouth every 4-6 hours if needed for cough ACETAMINOPHEN-CODEINE 18221922510 No Longer Active Suzan Boo APRN Active KEFLEX 500 MG CAP 1 po qid CEPHALEXIN 84419157207 No Longer Active Suzan Boo APRN Active FLOVENT HFA 110 MCG/ACT AERO 2 puffs inhaled b.i.d. FLUTICASONE PROPIONATE HFA 60936946950 Active Renzo Thornton DO Active RISPERDAL 4 MG ORAL TABS 1 tab at bedtime RISPERIDONE 42837088405 Active Samantha Stephan RMA Active TESSALON PERLES 100 MG CAPS 1 three times a day as needed for cough BENZONATATE 49506449941 Active Suzan Boo APRN Active ZOFRAN 4 MG TABS 1 po q6hr PRN Nausea ONDANSETRON HCL No Longer Active Suzan Boo APRN Active FLUTICASONE PROPIONATE 50 MCG/ACT SUSP 2 sprays each nostril daily before bed. FLUTICASONE PROPIONATE 54798604684 No Longer Active Suzan Boo APRN Active ASPIRIN 325 MG ORAL TABS 1 tab q.d ASPIRIN 66872795724 No Longer Active Suzan Boo APRN Active HALOPERIDOL 10 MG ORAL TABS 1 tab q.d HALOPERIDOL 48160991449 No Longer Active Suzan Boo APRN Active GUAIFENESIN-CODEINE 100-10 MG/5ML SYRP 5ml every 4 to 6 hours as needed for cough GUAIFENESIN-CODEINE 97341212117 No Longer Active Suzan Boo APRN Active ZITHROMAX Z-EARNEST 250 MG TABS 2 today and then 1 daily for 4 days AZITHROMYCIN 67839385335 No Longer Active Suzan Boo APRN Active CLONAZEPAM 1 MG ORAL TABS 1 twice a day and an additional 1 tablet every other day as needed for pseudoseizures or anxiety CLONAZEPAM 77628553281 Active Ahmet Carbajal MD Active HYDROCODONE-ACETAMINOPHEN 5-325 MG ORAL TABS 1 tab two times a day HYDROCODONE-ACETAMINOPHEN 26099890645 No Longer Active Ahmet Carbajal MD Active LAMICTAL 100 MG ORAL TABS 1 tab 2 times qd. LAMOTRIGINE 78161357111 Active Ahmet Carbajal MD Active PREDNISONE 20 MG TABS 2 daily for 5 days then 1 daily for 5 days PREDNISONE 38281773785 No Longer Active Ahmet Carbajal MD Active FLUTICASONE PROPIONATE 50 MCG/ACT SUSP 1 to 2 sprays each nostril daily for allergies FLUTICASONE PROPIONATE 12197797296 Active Tila Valenzuela Active BENADRYL 25 MG CAP 4 po at bedtime for insomnia DIPHENHYDRAMINE HCL 59696893619 No Longer Active Ahmet Carbajal MD Active ADVAIR DISKUS 250-50 MCG/DOSE INH AEPB 1 puff twice a day for asthma FLUTICASONE-SALMETEROL 64740709032 No Longer Active Ahmet Carbajal MD Active KLONOPIN 1 MG ORAL TABS 1 tab po TID CLONAZEPAM 62933763159 No Longer Active Ahmet Carbajal MD Active ABILIFY MAINTENA 400 MG IM SUSR 400mg injection every 26 days ARIPIPRAZOLE 03944850935 No Longer Active Ahmet Carbajal MD Active TRAMADOL HCL 50 MG TABS 1/2-1 tab TID PRN TRAMADOL HCL 16865283338 No Longer Active Ahmet Carbajal MD Active BACTRIM DS 800-160 MG TABS 1 twice a day SULFAMETHOXAZOLE- TRIMETHOPRIM 86813465593 No Longer Active Ahmet Carbajal MD Active PROAIR HFA 108 (90 BASE) MCG/ACT AERS 2 puffs four times a day as needed 2015 ALBUTEROL SULFATE 65167466108 Active Ahmet Carbajal MD Active MONISTAT 7 COMBO PACK WOODROW 100 & 2 MG-% (9GM) VAG KIT 1 applicatorful per vagina q pm x 7 MICONAZOLE NITRATE 24711163091 No Longer Active Ahmet Carbajal MD Active FLAGYL 500 MG TAB 1 tablet by mouth bid METRONIDAZOLE 80827664222 No Longer Active Ahmet Carbajal MD Active OXYCODONE HCL ER 10 MG ORAL T12A 1/2 tab by mouth every 4 hours prn OXYCODONE HCL 78974815350 No Longer Active Ahmet Carbajal MD Active METHYLPREDNISOLONE 4 MG ORAL TABS po daily METHYLPREDNISOLONE 53099232741 No Longer Active Ahmet Carbajal MD Active LEVOFLOXACIN 500 MG ORAL TABS po daily LEVOFLOXACIN 34377454638 No Longer Active Ahmet Carbajal MD Active VIIBRYD 10 MG ORAL TABS Take 1 tablet once a day VILAZODONE HCL 17935395461 No Longer Active Ahmet Carbajal MD Active TOPAMAX 50 MG ORAL TABS 1 tab twice daily TOPIRAMATE 16494350432 No Longer Active Ahmet Carbajal MD Active DICLOFENAC SODIUM 50 MG TBEC 1 tablet by mouth four times daily PRN Pain 2015 DICLOFENAC SODIUM 89507649020 No Longer Active Ahmet Carbajal MD Active ADZENYS XR-ODT 6.3 MG ORAL TBED 1 tab po daily for ADHD AMPHETAMINE 00623028124 No Longer Active Ahmet Carbajal MD Active CHANTIX 1 MG TABS 1 twice a day to help quit smoking VARENICLINE TARTRATE 30142762145 No Longer Active Dipika Burgos MD Active CHANTIX STARTING MONTH EARNEST 0.5 MG X 11 & 1 MG X 42 TABS take as directed 2015 VARENICLINE TARTRATE 94472549683 No Longer Active Dipika Burgos MD Active TESSALON PERLES 100 MG CAP 1 to 2 tablets by mouth 3 times daily as needed for cough BENZONATATE 05506634653 No Longer Active Luigi Martínez APRN Active IMITREX 50 MG ORAL TABS 0.5 po x 1 PRN Headache. May repeat dose x 1 in 2 hours if needed SUMATRIPTAN SUCCINATE 69694724841 Active Ahmet Carbajal MD Active HYDROCODONE-ACETAMINOPHEN 5-325 MG TABS 1 to 2 four times a day as needed for pain use until can be seen by specialist HYDROCODONE- ACETAMINOPHEN 43357197493 No Longer Active Vishal Hui MD Active PROAIR HFA 108 (90 BASE) MCG/ACT AERS 2 puffs four times a day as needed 2015 ALBUTEROL SULFATE 83294652514 No Longer Active Vishal Hui MD Active PREDNISONE 20 MG TABS 2 daily for 5 days then 1 daily for 5 days PREDNISONE 56577929631 No Longer Active Vishal Hui MD Active ZITHROMAX Z-EARNEST 250 MG TABS 2 today and then 1 daily for 4 days AZITHROMYCIN 12515984285 No Longer Active Vishal Hui MD Active DICLOFENAC POTASSIUM TABS Take 1 tablet twice a day (pt. is not sure of the dose.) DICLOFENAC POTASSIUM TABS 06060517070 No Longer Active Vishal Hui MD Active VERAPAMIL HCL ER 120 MG ORAL CR-TABS Take 1 tablet by mouth twice a day. VERAPAMIL HCL 47133142724 Active Vishal Hui MD Active FLAGYL 500 MG TAB 1 tablet by mouth bid METRONIDAZOLE 24243031668 No Longer Active Vishal Hiu MD Active VALIUM 5 MG TAB Take 1-2 tablets daily DIAZEPAM 53203412116 No Longer Active Fabiola Johnson APRN Active METOPROLOL TARTRATE 25 MG ORAL TABS 1/2 tablet twice daily for heart rate and blood pressure METOPROLOL TARTRATE 51250067176 No Longer Active Fabiola Johnson APRN Active MIRALAX ORAL POWD 17GMS DAILY IN WATER POLYETHYLENE GLYCOL 3350 97177127210 Active Berthaelif Kirby TAMARA Active MIRALAX PACK 1 po qd PRN Constipation POLYETHYLENE GLYCOL 3350 94674106106 No Longer Active Ahmet Carbajal MD Active MINIPRESS 2 MG CAPS 4 cap po at night PRAZOSIN HCL 22368360068 No Longer Active Ahmet Carbajal MD Active PIROXICAM 20 MG CAPS 1 cap po qd PRN Pain PIROXICAM 72577693671 No Longer Active Ahmet Carbajal MD Active TRAMADOL HCL 50 MG TABS 1-2 po TID PRN Pain TRAMADOL HCL 56223179022 No Longer Active Ahmet Carbajal MD Active METOPROLOL TARTRATE 50 MG TAB 1 po bid METOPROLOL TARTRATE 86413132926 No Longer Active Ahmet Carbajal MD Active ABILIFY 15 MG ORAL TABS 1 tab daily ARIPIPRAZOLE 79625847556 No Longer Active Ahmet Carbajal MD Active PROZAC 20 MG ORAL CAPS 1 tab daily FLUOXETINE HCL 34636199009 No Longer Active Ahmet Carbajal MD Active AMBIEN 5 MG ORAL TABS 1 tab at bedtime ZOLPIDEM TARTRATE 89318244730 No Longer Active Ahmet Carbajal MD Active PREDNISONE 20 MG TAB 2 tabs daily for 4 days, 1 tab daily for 4 days, 1/2 tab daily for 4 days PREDNISONE 10593662668 No Longer Active Ahmet Carbajal MD Active KEFLEX 500 MG CAP 1 po TID x 10 days CEPHALEXIN 27636710043 No Longer Active Vishal Hui MD Active SAPHRIS 5 MG SUBL 1 po bid ASENAPINE MALEATE 13319591229 No Longer Active Luigi Martínez APRN Active LATUDA 80 MG TABS Take one by mouth daily LURASIDONE HCL 83022005489 No Longer Active Luigi Martínez APRN Active AMLODIPINE BESYLATE 5 MG TABS 1 tablet by mouth daily AMLODIPINE BESYLATE 84717799846 No Longer Active Luigi Martínez APRN Active AMITRIPTYLINE HCL 100 MG TAB one at hs AMITRIPTYLINE HCL 16300285899 No Longer Active Vishal Hui MD Active TRAZODONE HCL 100 MG TAB take 1 at bedtime TRAZODONE HCL 32007172555 No Longer Active Vishal Hui MD Active VYVANSE 40 MG CAPS 1 daily, LISDEXAMFETAMINE DIMESYLATE 40398036880 No Longer Active Vishal Hui MD Active IBUPROFEN 600 MG TAB 1 po TID PRN IBUPROFEN 00426927012 No Longer Active Vishal Hui MD Active PROZAC 20 MG CAP Take one by mouth daily FLUOXETINE HCL 25224291491 No Longer Active Vishal Hui MD Active BACTRIM DS 800-160 MG TABS 1 pill by mouth twice daily SULFAMETHOXAZOLE-TRIMETHOPRIM 56109073333 No Longer Active Sahara Rodriguez MD PhD Active DIFLUCAN 150 MG TAB 1 tablet by mouth daily FLUCONAZOLE 59983499067 No Longer Active Vishal Hui MD Active TIZANIDINE HCL 4 MG TABS 1 po q6hr PRN Muscle Spasm/Back Pain TIZANIDINE HCL 25231171635 Active Vishal Hui MD Active CLINDAMYCIN HCL 150 MG CAPS 1 four times a day CLINDAMYCIN HCL 30497164423 No Longer Active Neeraj Collins MD Active KEFLEX 500 MG ORAL CAPS 1 cap QID by mouth CEPHALEXIN 43693358980 No Longer Active Neeraj Collins MD Active DIFLUCAN 150 MG TABS 1 pill every other day x 2 doses FLUCONAZOLE 86518088465 No Longer Active Sahara Rodriguez MD PhD Active MELATONIN 3 MG CAPS 2 po q hs MELATONIN 87216637807 No Longer Active Sahara Rodriguez MD PhD Active MULTIVITAMINS CAPS Take one by mouth daily MULTIPLE VITAMIN 73123089795 No Longer Active Sahara Rodriguez MD PhD Active BACTRIM DS 800-160 MG TAB 1 tab by mouth twice daily TRIMETHOPRIM-SULFAMETHOXAZOLE 58623066878 No Longer Active Sahara Rodriguez MD PhD Active [facility] PROBIOTIC ORAL CHEW 2 daily po PROBIOTIC PRODUCT 67701274776 No Longer Active Sahara Rodriguez MD PhD Active BACTRIM DS 800-160 MG TABS 1 po BID x 7 days SULFAMETHOXAZOLE-TRIMETHOPRIM 97435818801 No Longer Active Vishal Hui MD Active CHANTIX STARTING MONTH EARNEST 0.5 MG X 11 & 1 MG X 42 TABS 0.5mg daily for 3 days , then 0.5mg BID for 4 days, then 1mg BID VARENICLINE TARTRATE 08173879891 No Longer Active TAMARA Gray Active VERAPAMIL HCL CR 120 MG TAB CR 1 po bid VERAPAMIL HCL 52310043754 No Longer Active Vishal Hui MD Active METOPROLOL SUCCINATE 50 MG TB24 1 tablet by mouth daily METOPROLOL SUCCINATE 67421764249 No Longer Active Vishal Hui MD Active SAPHRIS 10 MG SUBL 1 tab po bid ASENAPINE MALEATE 91595715325 No Longer Active Vishal Hui MD Active LISINOPRIL 20 MG TABS 1 tab po qd LISINOPRIL 54936850959 No Longer Active Vishal Hui MD Active LATUDA 20 MG TABS Take one by mouth daily LURASIDONE HCL 69407605839 No Longer Active Vishal Hui MD Active TRAZODONE HCL 50 MG TABS 1/2 tab po qd prn for anxiety TRAZODONE HCL 38891841760 No Longer Active Vishal Hui MD Active OMEPRAZOLE 20 MG TBEC 1 po q a.m. 30min prior to first food intake OMEPRAZOLE 80152206434 Active TAMARA Casey Active RANITIDINE HCL 150 MG CAPS 1 twice a day RANITIDINE HCL 85319598206 Active Luigi Martínez APRN Active LINZESS 290 MCG CAPS Take one by mouth daily LINACLOTIDE 96305435171 No Longer Active Vishal Hui MD Active SAPHRIS 5 MG SUBL 1 tab po qd ASENAPINE MALEATE 70822257888 No Longer Active Vishal Hui MD Active ZALEPLON 10 MG CAPS 1 cap po every other night ZALEPLON 57683711913 No Longer Active Vishal Hui MD Active LYRICA 50 MG CAPS 1 tab po TID PREGABALIN 08279415684 No Longer Active Vishal Hui MD Active LORATADINE 10 MG TABS 1 tab po qd LORATADINE 01147203088 No Longer Active Vishal Hui MD Active VERAPAMIL HCL ER 180 MG CR-TABS 1 tab po bid VERAPAMIL HCL 10582552618 No Longer Active Vishal Hui MD Active MIRALAX POWD 1 capfull once daily POLYETHYLENE GLYCOL 3350 48649425022 No Longer Active Vishal Hui MD Active PREDNISONE 20 MG TABS 1 tab po qd PREDNISONE 79350349259 No Longer Active Renzo Thornton DO Active LEVOFLOXACIN 500 MG TABS 1 tab po qd LEVOFLOXACIN 56352013513 No Longer Active Renzo Thornton DO Active BUSPIRONE HCL 15 MG TABS 1 tab po TID BUSPIRONE HCL 83898379167 No Longer Active Renzo Thornton DO Active BENZTROPINE MESYLATE 1 MG TABS 1 tab po qd BENZTROPINE MESYLATE 07170595002 No Longer Active Renzo Thornton DO Active ATENOLOL 25 MG TABS 1 tab po qd ATENOLOL 79437609012 No Longer Active Renzo W Norberto DO Active ESCITALOPRAM OXALATE 20 MG TABS 1 tab po qd ESCITALOPRAM OXALATE 10042108949 No Longer Active Renzo Thornton DO Active ADVAIR DISKUS 250-50 MCG/DOSE AEPB 1 puff BID FLUTICASONE-SALMETEROL 93650053840 No Longer Active Renzo Thornton DO Active PREDNISONE 20 MG TAB 2 tabs daily for 3 days, 1 tab daily for 3 days, 1/2 tab daily for 2 days PREDNISONE 68048295153 No Longer Active Vishal Hui MD Active CEFDINIR 300 MG CAPS by mouth twice a day CEFDINIR 95626001846 No Longer Active Vishal Hui MD Active LANSOPRAZOLE 30 MG CPDR 1 cap po qd LANSOPRAZOLE 22002314292 No Longer Active Vishal Hui MD Active BACLOFEN 20 MG TABS 1 tab po tid BACLOFEN 19432446814 No Longer Active Vishal Hui MD Active ADVAIR DISKUS 250-50 MCG/DOSE AEPB 1 puff BID ADVAIR DISKUS 250-50 MCG/DOSE AEPB FLUTICASONE-SALMETEROL Inactive ESCITALOPRAM OXALATE 20 MG TABS 1 tab po qd ESCITALOPRAM OXALATE 20 MG TABS 853869 ESCITALOPRAM OXALATE Inactive ATENOLOL 25 MG TABS 1 tab po qd ATENOLOL 25 MG TABS 971461 ATENOLOL Inactive BENZTROPINE MESYLATE 1 MG TABS 1 tab po qd BENZTROPINE MESYLATE 1 MG TABS 567630 BENZTROPINE MESYLATE Inactive BUSPIRONE HCL 15 MG TABS 1 tab po TID BUSPIRONE HCL 15 MG TABS 885913 BUSPIRONE HCL Inactive LEVOFLOXACIN 500 MG TABS 1 tab po qd LEVOFLOXACIN 500 MG TABS 812241 LEVOFLOXACIN Inactive PREDNISONE 20 MG TABS 1 tab po qd PREDNISONE 20 MG TABS 743446 PREDNISONE Inactive MIRALAX POWD 1 capfull once daily MIRALAX POWD 298461 POLYETHYLENE GLYCOL 3350 Inactive VERAPAMIL HCL ER 180 MG CR-TABS 1 tab po bid VERAPAMIL HCL ER 180 MG CR-TABS VERAPAMIL HCL Inactive LORATADINE 10 MG TABS 1 tab po qd LORATADINE 10 MG TABS 402009 LORATADINE Inactive LYRICA 50 MG CAPS 1 tab po TID LYRICA 50 MG CAPS PREGABALIN Inactive ZALEPLON 10 MG CAPS 1 cap po every other night ZALEPLON 10 MG CAPS 614717 ZALEPLON Inactive SAPHRIS 5 MG SUBL 1 tab po qd SAPHRIS 5 MG SUBL ASENAPINE MALEATE Inactive TRAZODONE HCL 50 MG TABS 1/2 tab po qd prn for anxiety TRAZODONE HCL 50 MG TABS 521482 TRAZODONE HCL Inactive LATUDA 20 MG TABS Take one by mouth daily LATUDA 20 MG TABS LURASIDONE HCL Inactive LISINOPRIL 20 MG TABS 1 tab po qd LISINOPRIL 20 MG TABS 482131 LISINOPRIL Inactive SAPHRIS 10 MG SUBL 1 [...] twice daily BACTRIM DS 800-160 MG TAB 710261 TRIMETHOPRIM-SULFAMETHOXAZOLE Inactive MULTIVITAMINS CAPS Take one by mouth daily MULTIVITAMINS CAPS MULTIPLE VITAMIN Inactive MELATONIN 3 MG CAPS 2 po q hs MELATONIN 3 MG CAPS 672076 MELATONIN Inactive KEFLEX 500 MG ORAL CAPS 1 cap QID by mouth KEFLEX 500 MG ORAL CAPS 505603 CEPHALEXIN Inactive CLINDAMYCIN HCL 150 MG CAPS 1 four times a day CLINDAMYCIN HCL 150 MG CAPS 627970 CLINDAMYCIN HCL Inactive DIFLUCAN 150 MG TAB 1 tablet by mouth daily DIFLUCAN 150 MG TAB 710379 FLUCONAZOLE Inactive PROZAC 20 MG CAP Take one by mouth daily PROZAC 20 MG CAP 805224 FLUOXETINE HCL Inactive IBUPROFEN 600 MG TAB 1 po TID PRN IBUPROFEN 600 MG TAB 731881 IBUPROFEN Inactive VYVANSE 40 MG CAPS 1 daily, VYVANSE 40 MG CAPS LISDEXAMFETAMINE DIMESYLATE Inactive TRAZODONE HCL 100 MG TAB take 1 at bedtime TRAZODONE HCL 100 MG TAB 235589 TRAZODONE HCL Inactive AMITRIPTYLINE HCL 100 MG TAB one at hs AMITRIPTYLINE HCL 100 MG TAB 712115 AMITRIPTYLINE HCL Inactive AMLODIPINE BESYLATE 5 MG TABS 1 tablet by mouth daily AMLODIPINE BESYLATE 5 MG TABS 815592 AMLODIPINE BESYLATE Inactive LATUDA 80 MG TABS Take one by mouth daily LATUDA 80 MG TABS LURASIDONE HCL Inactive SAPHRIS 5 MG SUBL 1 po bid SAPHRIS 5 MG SUBL ASENAPINE MALEATE Inactive PREDNISONE 20 MG TAB 2 tabs daily for 4 days, 1 tab daily for 4 days, 1/2 tab daily for 4 days PREDNISONE 20 MG TAB 209222 PREDNISONE Inactive AMBIEN 5 MG ORAL TABS 1 tab at bedtime AMBIEN 5 MG ORAL TABS 706957 ZOLPIDEM TARTRATE Inactive PROZAC 20 MG ORAL CAPS 1 tab daily PROZAC 20 MG ORAL CAPS 155278 FLUOXETINE HCL Inactive ABILIFY 15 MG ORAL TABS 1 tab daily ABILIFY 15 MG ORAL TABS 867238 ARIPIPRAZOLE Inactive METOPROLOL TARTRATE 50 MG TAB 1 po bid METOPROLOL TARTRATE 50 MG TAB 740280 METOPROLOL TARTRATE Inactive TRAMADOL HCL 50 MG TABS 1-2 po TID PRN Pain TRAMADOL HCL 50 MG TABS 239365 TRAMADOL HCL Inactive PIROXICAM 20 MG CAPS 1 cap po qd PRN Pain PIROXICAM 20 MG CAPS 153182 PIROXICAM Inactive MINIPRESS 2 MG CAPS 4 cap po at night MINIPRESS 2 MG CAPS 278661 PRAZOSIN HCL Inactive MIRALAX PACK 1 po qd PRN Constipation MIRALAX PACK 914484 POLYETHYLENE GLYCOL 3350 Inactive METOPROLOL TARTRATE 25 MG ORAL TABS 1/2 tablet twice daily for heart rate and blood pressure METOPROLOL TARTRATE 25 MG ORAL TABS 830778 METOPROLOL TARTRATE Inactive VALIUM 5 MG TAB Take 1-2 tablets daily VALIUM 5 MG TAB 959053 DIAZEPAM Inactive FLAGYL 500 MG TAB 1 tablet by mouth bid FLAGYL 500 MG TAB 179189 METRONIDAZOLE Inactive DICLOFENAC POTASSIUM TABS Take 1 tablet twice a day (pt. is not sure of the dose.) DICLOFENAC POTASSIUM TABS DICLOFENAC POTASSIUM TABS Inactive ZITHROMAX Z-EARNEST 250 MG TABS 2 today and then 1 daily for 4 days ZITHROMAX Z-EARNEST 250 MG TABS 8983587 AZITHROMYCIN Inactive PREDNISONE 20 MG TABS 2 daily for 5 days then 1 daily for 5 days PREDNISONE 20 MG TABS 594882 PREDNISONE Inactive PROAIR HFA 108 (90 BASE) MCG/ACT AERS 2 puffs four times a day as needed 2015 PROAIR HFA 108 (90 BASE) MCG/ACT AERS ALBUTEROL SULFATE Inactive HYDROCODONE-ACETAMINOPHEN 5-325 MG TABS 1 to 2 four times a day as needed for pain use until can be seen by specialist HYDROCODONE- ACETAMINOPHEN 5-325 MG TABS 582726 HYDROCODONE-ACETAMINOPHEN Inactive TESSALON PERLES 100 MG CAP 1 to 2 tablets by mouth 3 times daily as needed for cough TESSALON PERLES 100 MG CAP 572031 BENZONATATE Inactive CHANTIX STARTING MONTH EARNEST 0.5 [...] Pain 2015 DICLOFENAC SODIUM 50 MG TBEC 220745 DICLOFENAC SODIUM Inactive TOPAMAX 50 MG ORAL TABS 1 tab twice daily TOPAMAX 50 MG ORAL TABS 922052 TOPIRAMATE Inactive VIIBRYD 10 MG ORAL TABS Take 1 tablet once a day VIIBRYD 10 MG ORAL TABS VILAZODONE HCL Inactive LEVOFLOXACIN 500 MG ORAL TABS po daily LEVOFLOXACIN 500 MG ORAL TABS 435779 LEVOFLOXACIN Inactive METHYLPREDNISOLONE 4 MG ORAL TABS po daily METHYLPREDNISOLONE 4 MG ORAL TABS 252801 METHYLPREDNISOLONE Inactive OXYCODONE HCL ER 10 MG ORAL T12A 1/2 tab by mouth every 4 hours prn OXYCODONE HCL ER 10 MG ORAL T12A OXYCODONE HCL Inactive FLAGYL 500 MG TAB 1 tablet by mouth bid FLAGYL 500 MG TAB 487171 METRONIDAZOLE Inactive MONISTAT 7 COMBO PACK WOODROW 100 & 2 MG-% (9GM) VAG KIT 1 applicatorful per vagina q pm x 7 MONISTAT 7 COMBO PACK WOODROW 100 & 2 MG-% (9GM) VAG KIT MICONAZOLE NITRATE Inactive BACTRIM DS 800-160 MG TABS 1 twice a day BACTRIM DS 800-160 MG TABS 453563 SULFAMETHOXAZOLE-TRIMETHOPRIM Inactive TRAMADOL HCL 50 MG TABS 1/2-1 tab TID PRN TRAMADOL HCL 50 MG TABS 220576 TRAMADOL HCL Inactive ABILIFY MAINTENA 400 MG IM SUSR 400mg injection every 26 days ABILIFY MAINTENA 400 MG IM SUSR ARIPIPRAZOLE Inactive KLONOPIN 1 MG ORAL TABS 1 tab po TID KLONOPIN 1 MG ORAL TABS 383099 CLONAZEPAM Inactive ADVAIR DISKUS 250-50 MCG/DOSE INH AEPB 1 puff twice a day for asthma ADVAIR DISKUS 250-50 MCG/DOSE INH AEPB FLUTICASONE- SALMETEROL Inactive BENADRYL 25 MG CAP 4 po at bedtime for insomnia BENADRYL 25 MG CAP DIPHENHYDRAMINE HCL Inactive PREDNISONE 20 MG TABS 2 daily for 5 days then 1 daily for 5 days PREDNISONE 20 MG TABS 950266 PREDNISONE Inactive HYDROCODONE-ACETAMINOPHEN 5-325 MG ORAL TABS 1 tab two times a day HYDROCODONE-ACETAMINOPHEN 5-325 MG ORAL TABS 120441 HYDROCODONE-ACETAMINOPHEN Inactive ZITHROMAX Z-EARNEST 250 MG TABS 2 today and then 1 daily for 4 days ZITHROMAX Z-EARNEST 250 MG TABS 6030870 AZITHROMYCIN Inactive GUAIFENESIN-CODEINE 100-10 MG/5ML SYRP 5ml every 4 to 6 hours as needed for cough GUAIFENESIN-CODEINE 100-10 MG/5ML SYRP 472236 GUAIFENESIN-CODEINE Inactive HALOPERIDOL 10 MG ORAL TABS 1 tab q.d HALOPERIDOL 10 MG ORAL TABS 491757 HALOPERIDOL Inactive ASPIRIN 325 MG ORAL TABS 1 tab q.d ASPIRIN 325 MG ORAL TABS 387865 ASPIRIN Inactive FLUTICASONE PROPIONATE 50 MCG/ACT SUSP 2 sprays each nostril daily before bed. FLUTICASONE PROPIONATE 50 MCG/ACT SUSP 6939037 FLUTICASONE PROPIONATE Inactive ZOFRAN 4 MG TABS 1 po q6hr PRN Nausea ZOFRAN 4 MG TABS 518199 ONDANSETRON HCL Inactive KEFLEX 500 MG CAP 1 po qid KEFLEX 500 MG CAP 917085 CEPHALEXIN Inactive ACETAMINOPHEN-CODEINE 120-12 MG/5ML SOLN 5 ml by mouth every 4-6 hours if needed for cough ACETAMINOPHEN-CODEINE 120-12 MG/5ML SOLN 907122 ACETAMINOPHEN-CODEINE Inactive PREDNISONE 20 MG TAB 1 tablet daily x 4 days PREDNISONE 20 MG TAB 114571 PREDNISONE Inactive TROPICAMIDE 0.5 % OPHTH SOLN 1 drop PRN eye spasms TROPICAMIDE 0.5 % OPHTH SOLN 572878 TROPICAMIDE Inactive LEVAQUIN 500 MG TABS 1 daily for infection LEVAQUIN 500 MG TABS 325405 LEVOFLOXACIN Inactive PREDNISONE 10 MG TABS 2 daily for 5 days then 1 daily for 5 days PREDNISONE 10 MG TABS 261506 PREDNISONE Inactive EQ NICOTINE 21 MG/24HR TRANS PT24 Apply daily to stop smoking EQ NICOTINE 21 MG/24HR TRANS PT24 123292 NICOTINE Inactive CEFDINIR 300 MG CAPS by mouth twice a day CEFDINIR 300 MG CAPS 591923 CEFDINIR Inactive PREDNISONE 20 MG TAB 2 tabs daily for 3 days, 1 tab daily for 3 days, 1/2 tab daily for 2 days PREDNISONE 20 MG TAB 678078 PREDNISONE Inactive BACTRIM DS 800-160 MG TABS 1 po BID x 7 days BACTRIM DS 800-160 MG TABS 19820521 SULFAMETHOXAZOLE-TRIMETHOPRIM Inactive DIFLUCAN 150 MG TABS 1 pill every other day x 2 doses DIFLUCAN 150 MG TABS 116378 FLUCONAZOLE Inactive BACTRIM DS 800-160 MG TABS 1 pill by mouth twice daily BACTRIM DS 800-160 MG TABS 19820521 SULFAMETHOXAZOLE-TRIMETHOPRIM Inactive KEFLEX 500 MG CAP 1 po TID x 10 days KEFLEX 500 MG CAP 040560 CEPHALEXIN Inactive Advance Directives Directive Description Start [...] % 11.0-15.0 platelet count 443 THOUSAND/UL 10*3/mm3 405-488 4398/03/01 mean platelet volume 8.2 fL 7.5-12.5 mean corpuscular hemoglobin, RBC 29.9 [...] 369 10^3/MM^3 10*3/mm3 142-424 Lab Report: Chlamydia/GC APTIMA/[id number] - Lab chlamydia DNA probe NOT DETECTED NOT DETECTED Lab Report: Chlamydia/GC APTIMA/[id number] - Microbiology Neisseria gonorrhoeae DNA probe NOT DETECTED NOT DETECTED Lab Report: Chlamydia/GC APTIMA/[id number], Urinalysis, Complete, with Reflex ... - Lab chlamydia DNA probe NOT DETECTED NOT DETECTED Lab Report: Chlamydia/GC APTIMA/[id number], Urinalysis, Complete, with Reflex ... - Microbiology Neisseria gonorrhoeae DNA probe NOT DETECTED NOT DETECTED Lab Report: Chlamydia/GC APTIMA/[id number], Urinalysis, Complete, with Reflex ... - Urinalysis microalbumin/total urine volume 2 mg/L Units converted. See lab report for original value. microalbumin/creatinine ratio, urine 9 MCG/MG CREAT mg/L <30 Lab Report: Comp. Metabolic Panel - Chemistry sodium, serum 140 mmol/L 100-296 2328/08/08 carbon dioxide, venous blood 33.7 mmol/L 21.0-32.0 [...] 27.6 mmol/L 21.0-32.0 sodium, serum 142 mmol/L 203-713 9821/06/08 urea nitrogen, blood 8 mg/dL 7-18 creatinine, [...] mg/dL Encounters Code Encounter Date Provider Facility CPT-49941 Level 3 Est. Patient 10:29:30 CDT Suzan Boo [facility] CPT-36964 Level 3 Est. Patient 11:04:38 CDT Renzo Thornton [facility] CPT-19782 Level 3 Est. Patient 11:15:58 VACUUM SYSTEM TESTER Renzo Thornton [facility] CPT-36412 Level 3 Est. Patient 15:28:23 VACUUM SYSTEM TESTER Suzan Boo [facility] CPT-44021 Level 4 Est. Patient 10:20:54 VACUUM SYSTEM TESTER Suzan Boo [facility] CPT-75304 Level 3 Est. Patient 11:47:37 VACUUM SYSTEM TESTER Ahmet Cabrajal MD [facility] CPT-87806 Level 3 Est. Patient 10:40:11 VACUUM SYSTEM TESTER Ahmet Carbajal MD [facility] CPT-29318 Level 3 Est. Patient 15:07:06 VACUUM SYSTEM TESTER Neeraj Collins MD [facility] CPT-86147 Level 4 Est. Patient 14:45:00 VACUUM SYSTEM TESTER Ahmet Carbajal MD [facility] CPT-43796 Level 3 Est. Patient 13:59:59 CDT Luigi Martínez [facility] CPT-48273 Level 3 Est. Patient 18:18:53 CDT Neeraj Collins MD [facility] CPT-91006 Level 3 Est. Patient 15:50:44 CDT Vishal Hui MD [facility] CPT-50356 Level 3 Est. Patient 11:36:17 CDT Ahmet Carbajal MD [facility] CPT-32910 Level 3 Est. Patient 13:29:16 CDT Vishal Hui MD [facility] CPT-67271 Level 3 Est. Patient 14:27:52 CDT Neeraj Collins MD [facility] CPT-28896 Level 3 Est. Patient 08:56:03 CDT Luigi Martínez [facility] CPT-67615 Level 4 Est. Patient 12:11:48 CDT Fabiola Johnson [facility] CPT-25372 Level 3 New Patient 16:53:37 CDT Albert Caldera MD [facility] CPT-49861 Level 3 Est. Patient 11:25:49 CDT Renzo Thornton DO [facility] CPT-56063 Level 3 Est. Patient 15:22:01 CDT Ahmet Carbajal MD [facility] CPT-40572 Level 4 Est. Patient 09:00:51 VACUUM SYSTEM TESTER Vishal Hui MD [facility] CPT-29622 Level 3 Est. Patient 11:37:33 VACUUM SYSTEM TESTER Vishal Hui MD [facility] CPT-42791 Level 3 Est. Patient 08:41:09 VACUUM SYSTEM TESTER Vishal Hui MD [facility] CPT-61941 Level 4 Est. Patient 10:19:35 VACUUM SYSTEM TESTER Vishal Hui MD [facility] CPT-20921 Level 3 Est. Patient 13:35:45 CDT Vishal Hui MD [facility] CPT-30819 Level 4 Est. Patient 10:08:37 CDT Vishal Hui MD [facility] CPT-64100 Level 3 Est. Patient 11:22:10 CDT Vishal Hui MD [facility] CPT-64793 Level 3 Est. Patient 11:03:32 CDT Sahara Rodriguez MD PhD [facility] CPT-61180 Level 3 Est. Patient 09:41:35 CDT Vishal Hui MD [facility] CPT-13808 Level 3 Est. Patient 12:00:41 CDT Neeraj Collins MD [facility] CPT-59377 Level 3 Est. Patient 09:16:24 CDT Vishal Hui MD [facility] CPT-98607 Level 4 Est. Patient 13:59:09 CDT Neeraj Collins MD [facility] CPT-79860 Level 3 Est. Patient 15:19:43 CDT Renzo Thornton [facility] CPT-84565 Level 3 Est. Patient 18:10:26 CDT Sahara Rodriguez MD [facility]-19552 Level 3 Est. Patient 14:49:50 CDT Vishal Hui MD [facility] CPT-50954 Level 4 Est. Patient 18:41:46 CDT Neeraj Collins MD [facility] CPT-98462 Level 4 Est. Patient 09:18:38 VACUUM SYSTEM TESTER Vishal Hui MD [facility] CPT-87854 Level 3 Est. Patient 14:43:55 VACUUM SYSTEM TESTER Vishal Hui MD [facility] CPT-86442 Level 3 Est. Patient 15:26:33 VACUUM SYSTEM TESTER Sahara Rodriguez MD PhD [facility] CPT-77099 Level 3 Est. Patient 10:32:14 VACUUM SYSTEM TESTER Vishal Hui MD [facility] CPT-96338 Level 3 Est. Patient 15:12:52 VACUUM SYSTEM TESTER Vishal Hui MD [facility] CPT-23448 Level 4 Est. Patient 09:19:27 CDT Vishal Hui MD [facility] CPT-54706 Level 3 Est. Patient 15:53:00 CDT Renzo Thornton DO [facility] CPT-58621 Level 3 Est. Patient 15:50:30 CDT Renzo Thornton DO [facility] CPT-78024 Level 3 Est. Patient 16:55:24 CDT Vishal Hui MD [facility] Procedures Code Procedure Name Date Entry Date Standard Description CPT-64229 Smoking Cessation counseling 11:15:58 V[employer]UUM SYSTEM TESTER CPT-G0439 Subsequent Annual Wellness Exam 09:30:58 VACUUM SYSTEM TESTER CPT-95433 TSH - LAB USE ONLY 08:50:26 VACUUM SYSTEM TESTER CPT-55829 CBC - LAB USE ONLY 08:50:26 VACUUM SYSTEM TESTER CPT-45320 Venipuncture Draw Fee 08:50:26 VACUUM SYSTEM TESTER CPT-95868 Abx/Therapy Injection 17:34:30 VACUUM SYSTEM TESTER CPT-38921 Nexplanon Removal with Reinsertion 14:09:32 CDT CPT-J7307 Nexplanon (Implant) 14:09:32 CDT CPT-OV Office Visit 14:09:32 CDT CPT-66905 UA w micro - LAB USE ONLY 16:21:13 CDT CPT-82821 Wet Mount - LAB USE ONLY 16:21:13 CDT CPT-30555 First Vx - Ix admin for Medicare patients 14:37:47 CDT CPT-88481 Fluzone Preservative Free Intramuscular Suspension 14:37 :47 CDT CPT-76016 Abx/Therapy Injection 13:54:22 CDT CPT-97504 Abx/Therapy Injection 08:47:09 CDT CPT-16026 Abx/Therapy Injection 13:29:56 CDT CPT-80645 Abx/Therapy Injection 08:36:16 CDT CPT-70977 Wet Mount - LAB USE ONLY 17:44:58 CDT CPT-67861 UA w micro - LAB USE ONLY 17:44:58 CDT CPT-12727 CMP - LAB USE ONLY 17:44:58 CDT CPT-92498 Venipuncture Draw Fee 17:44:58 CDT CPT-42654 Cervical Min 4V - XRAY USE ONLY 09:01:40 CDT CPT-85892 Chest 2V Frontal and Lat - XRAY USE ONLY 11:06:31 CDT CPT-17518 EKG Trac and Interp - XRAY USE ONLY 11:31:43 CDT 08/26 CPT-J3420 Vitamin B12 1000mcg (Cyanocobalamin) 08:10:26 VACUUM SYSTEM TESTER 04/12 CPT-92253 Abx/Therapy Injection 08:10:26 VACUUM SYSTEM TESTER CPT-G0438 Initial Annual Wellness Exam 19:01:01 VACUUM SYSTEM TESTER CPT-J3420 Vitamin B12 1000mcg (Cyanocobalamin) 16:57:46 CDT 08/14 CPT-15752 Recombivax HB Injection Suspension 5 MCG/0.5ML 08:37:50 VACUUM SYSTEM TESTER CPT-04491 Immunization Single Admin 08:37:50 VACUUM SYSTEM TESTER CPT-J3420 Vitamin B12 1000mcg (Cyanocobalamin) 08:32:16 VACUUM SYSTEM TESTER 03/11 CPT-14132 Abx/Therapy Injection 08:32:16 VACUUM SYSTEM TESTER CPT-93746 Chest 2V Frontal and Lat 11:46:38 VACUUM SYSTEM TESTER CPT-29235 Venipuncture Draw Fee 09:12:45 VACUUM SYSTEM TESTER CPT-J3420 Vitamin B12 1000mcg (Cyanocobalamin) 08:50:15 VACUUM SYSTEM TESTER 02/08 CPT-88064 Abx/Therapy Injection 08:50:15 VACUUM SYSTEM TESTER CPT-Cryo Cryotherapy 10:19:35 VACUUM SYSTEM TESTER CPT-000 Give Appropriate Flu Vaccine 09:22:16 CDT CPT-J3420 Vitamin B12 1000mcg (Cyanocobalamin) 19:08:57 CDT 01/11 CPT-18656 Abx/Therapy Injection 19:08:57 CDT CPT-J3420 Vitamin B12 1000mcg (Cyanocobalamin) 08:19:08 CDT 12/11 CPT-19167 Abx/Therapy Injection 08:19:08 CDT CPT-J3420 Vitamin B12 1000mcg (Cyanocobalamin) 14:48:00 CDT 11/09 CPT-70370 Abx/Therapy Injection 14:47:59 CDT CPT-J3420 Vitamin B12 1000mcg (Cyanocobalamin) 08:34:04 CDT 10/09 CPT-67608 Abx/Therapy Injection 08:34:04 CDT CPT-J3420 Vitamin B12 1000mcg (Cyanocobalamin) 09:18:52 CDT 09/11 CPT-62949 Abx/Therapy Injection 09:18:52 CDT CPT-J3420 Vitamin B12 1000mcg (Cyanocobalamin) 08:35:44 CDT 09/04 CPT-42929 Abx/Therapy Injection 08:35:44 CDT CPT-59418 Immunization Single Admin 11:07:16 CDT CPT-33338 Hepatitis B adult IM 11:07:16 CDT CPT-J3420 Vitamin B12 1000mcg (Cyanocobalamin) 11:00:49 CDT 08/28 CPT-J1040 Depo Medrol 80 mg (Methyl Prednisolone Acetate) 11:00: 49 CDT CPT-54782 Abx/Therapy Injection 11:00:49 CDT CPT-J1040 Depo Medrol 80 mg (Methyl Prednisolone Acetate) 09:16: 23 CDT CPT-J3420 Vitamin B12 1000mcg (Cyanocobalamin) 08:27:05 CDT 08/20 CPT-43654 Abx/Therapy Injection 08:27:05 CDT CPT-62959 Recombivax HB Injection Suspension 5 MCG/0.5ML 10:00:41 CDT CPT-69128 Administration single or combination vaccine inc oral 10 :00:41 CDT CPT-72072 Sono transvag pelvis non OB uterus ovaries cervix 16:36: 57 CDT CPT-24104 LS spine comp w obliq 09:50:55 VACUUM SYSTEM TESTER CPT-93856 Abd compl w upright 09:50:55 VACUUM SYSTEM TESTER CPT-J1100 Decadron 4mg (Dexamethasone) 15:51:24 VACUUM SYSTEM TESTER CPT-J1030 Depo Medrol 40 mg (Methyl Prednisolone Acetate) 15:51: 24 VACUUM SYSTEM TESTER CPT-43958 Abx/Therapy Injection 15:51:24 VACUUM SYSTEM TESTER CPT-J1100 Decadron 4mg (Dexamethasone) 15:26:33 VACUUM SYSTEM TESTER CPT-J1030 Depo Medrol 40 mg (Methyl Prednisolone Acetate) 15:26: 33 VACUUM SYSTEM TESTER CPT-63145 Sono retroperitoneal complete kidneys and bladder 17:15: 30 CDT CPT-63601 Abd compl w upright 16:09:25 CDT CPT-J1100 Decadron 8mg (Dexamethasone) 17:07:57 CDT CPT-53387 Abx/Therapy Injection 17:07:57 CDT CPT-J1100 Decadron 8mg (Dexamethasone) 16:55:24 CDT CPT-90607 Chest 2V Frontal and Lat 16:32:44 CDT
--- OUTSIDE RECORDS SUMMARY | 2016-11-04 20:01 | XMS REPORT ---
Author [facility] Organization [facility] Address [address] [place], [place] [address] Phone [phone] Care Team Providers Care Fisher Gill Net Name Role Phone DENICE OCHOA MD, PP [phone] DENICE OCHOA MD, PP [phone] Summary purpose TRANSITION OF CARE AUTO GENERATION Chief Complaint and Reason for Visit Admit Diagnosis 1 SEIZURE DISORDER Problem list No authorized problems tracked for continuity of care are available for this visit. Encounters The following conditions tracked for encounter diagnoses were recorded for this visit: Finding or Diagnosis Status Certainty Chronicity Onset *SEIZURE DISORDER Active Medications No medications recorded for this patient [...] Relevant diagnostic tests and/or laboratory data RESULTS [id number]:25:00 Discharge Summary DISCHARGE SUMMARY ADMITTING DIAGNOSIS: 1)Seizures. DISCHARGE DIAGNOSIS: 1)Seizures. HISTORY OF PRESENT ILLNESS:This 30-year-old female presented to the clinic today and had four [id number] seizures lasting 10 to 40 seconds.Emergency Medical Services were called, and she was transported to the Emergency Department.In the Emergency Department, she was given Ativan 1 mg IV x 3, Valproic Acid 1 gram IV and Tylenol orally.Patient had a couple more witnessed seizures in the Emergency Department.The Emergency Room staff states that she was immediately conversant after both seizures.They lasted around 20 to 40 seconds each.Ara had seen a neurologist on Sunday and was started on Keppra 500 mg twice daily, Valproic Acid 50 mg twice daily and Alprazolam 1 mg twice daily.She began having seizure-like activity while she slept a couple of months ago witnessed by her partner.This past week was the first time she had seizure-like activity during the day.Her partner states Ara had approximately eleven seizures prior to arriving at the clinic today.She has had no fever or chills, normal bowel movements and urination. She states she gets an aching chest pain after having seizures today.She states she had a headache yesterday, no different than her usual headache. HOSPITAL COURSE:Ara was watched through the evening in observation with neuro-checks scheduled through the evening.Nurses state that she had between 15 and 20 more seizures that they state happened only when they went into the room.Ara would state that she was going to have a seizure and would have tonic-clonic type seizure activity.They state she would curl up in a ball, her eyes would be closed, and it would last around 10 to 20 seconds each.They state that post-seizure, no ictal state was noted.She was conversant after the seizure.After two of the seizures, she immediately wanted to get up to the bedside commode and pass between 500-800 ml of urine.Through the night, she was never incontinent of urine or bowel during these events.This morning, Ara states that she is having some chest pain with deep breaths after the seizures.An electrocardiogram was completed, showing normal sinus rhythm.Troponin was drawn at that time.At this time, [facility] was contacted to speak to neurology. Spoke with Dr. Norberto Healy who accepted the patient to [facility] to acquire a videoed EEG.Ara agreed to said transfer to [facility] for further evaluation. PHYSICAL EXAMINATION: VITAL SIGNS:Temperature 98.9, has remained afebrile, pulse 92, blood pressure 121/60, respirations 18, oxygen saturation 98% on room air. GENERAL:This is a well-appearing 30-year-old. HEENT:Normocephalic, atraumatic.Pupils are equal, round, reactive to light and accommodation.Mucous membranes are pink and moist. NECK:Trachea is midline, no lymphadenopathy or thyromegaly. LUNGS:Clear to auscultation.No wheezes, rhonchi or rales noted. CARDIOVASCULAR:Regular rate and rhythm. ABDOMEN:Soft, nontender.Patient is obese. EXTREMITIES:No edema. SKIN:No rash. LABORATORY/X-RAY/EKG DATA:White blood cell count 7900, hemoglobin 14.4.Chemistry, electrolytes within normal limits.Renal function is okay.Valproic Acid was found to be 26.8 this morning.Troponin was negative. DISCHARGE MEDICATIONS:Ibuprofen 600 mg tablet, one tablet three times daily as needed, Metoprolol Tartrate 50 mg tablet, one tablet twice a day, Omeprazole 20 mg capsule, one capsule daily, Zofran 40 mg tablet, one tablet every six hours as needed, Prazosin 2 mg capsule, one capsule at bedtime, Ranitidine 150 mg tablet, one tablet twice a day, Tizanidine 4 mg tablet, one tablet every six hours as needed, Topiramate 15 mg tablet, one tablet twice a day, Vyvanse 40 mg capsule, one capsule daily, Keppra 500 mg twice a day, Valproic Acid 50 mg twice a day, Alprazolam 1 mg twice a day. Emilie Stringer MD MB/maia 06/24/2015 12:25:30/06/25/2015 00:15:00 Clinic Code: cc: <START [facility] [address] [place] [address] <END HEADER> Routine Urinalysis [id number]:16:00 Result Normal Range Units Color YELLOW Clarity Clear Specific [place] 1.020 1.003-1.035 pH 6.0 4.5-8.0 Glucose NEGATIVE Bilirubin NEGATIVE Ketones NEGATIVE Protein NEGATIVE Urobilinogen 0.2 0-0.2 E.U./dL Nitrites NEGATIVE Blood NEGATIVE Leukocytes TRACE WBCs 0-5 RBCs No RBC's Seen. Squamous Epithelial 1+ Bacteria 2+ Therapeutic Drug Monitoring :26:00 Result Normal Range Units Valproic Acid (Depakote) L 26.8 50-100 ug/ml [id number]:20:00 Result Normal Range Units Valproic Acid (Depakote) L < 3 50-100 ug/ml Chemistry :26:00 Result Normal Range Units Sodium 139 134-145 mEq/l Potassium 4.4 3.5-5.1 mEq/l Chloride 107 98-107 mEq/l CO2 22.7 22-28 mEq/l Glucose H 114 70-105 mg/dl BUN 7 7-18 mg/dl Creatinine 0.77 0.6-1.0 mg/dl Calcium 8.4 8.4-10.2 mg/dl Osmolality L 276.4 280-300 mOsm/L Anion GAP 9.3 8-16 BUN/Creatinine Ratio L 9.1 10-20 Estimated GFR 89 >=60 mL/min/1.7 [id number]:20:00 Result Normal Range Units Sodium 143 134-145 mEq/l Potassium 4.0 3.5-5.1 mEq/l Chloride H 108 98-107 mEq/l CO2 24.4 22-28 mEq/l Glucose H 117 70-105 mg/dl BUN 9 7-18 mg/dl Creatinine 0.80 0.6-1.0 mg/dl Calcium 8.8 8.4-10.2 mg/dl TP - Total Protein 6.6 6.0-8.3 g/dl Albumin 3.7 3.5-5 g/dl Bilirubin - Total 0.2 0.1-1.0 mg/dl AST H 46 10-42 IU/L ALT H 86 12-65 IU/L ALP H 91 25-72 IU/L Osmolality 284.7 280-300 mOsm/L Albumin/Globulin Ratio 1.3 0-8 Anion GAP 10.6 8-16 BUN/Creatinine Ratio 11.2 10-20 Estimated GFR 85 >=60 mL/min/1.7 Hematology :26:00 Result Normal Range Units WBC 7.9 4.8-10.8 103/uL RBC 4.7 4.2-5.4 106/uL HGB 14.4 12.0-16.0 g/dl HCT 43.3 36.9-47.0 % MCV 93.1 81-99 FL MCH 31.0 27-31 pg MCHC 33.3 33-37 g/dl RDW 11.9 11.5-15.5 % PLT 334 130-400 103/uL MPV 9.9 7.3-10.4 FL Neutro % 48.8 40-70 % Lymph % H 40.2 20-40 % Highland % 8.2 0-10.0 % Eos % 1.9 0-7.0 % Baso % 0.5 0-2 % Neutro # 3.8 1.5-7.5 103/uL Lymph # 3.2 0.9-4.0 103/uL Highland # 0.7 0-0.8 103/uL Eos # 0.2 0-0.6 103/uL Baso # 0.0 0-0.1 103/uL :20:00 Result Normal Range Units WBC 8.6 4.8-10.8 103/uL RBC 4.6 4.2-5.4 106/uL HGB 14.2 12.0-16.0 g/dl HCT 43.0 36.9-47.0 % MCV 92.9 81-99 FL MCH 30.7 27-31 pg MCHC 33.0 33-37 g/dl RDW 11.9 11.5-15.5 % PLT 250 130-400 103/uL MPV H 11.0 7.3-10.4 FL Neutro % 61.9 40-70 % Lymph % 28.6 20-40 % Highland % 7.5 0-10.0 % Eos % 1.1 0-7.0 % Baso % 0.5 0-2 % Neutro # 5.3 1.5-7.5 103/uL Lymph # 2.5 0.9-4.0 103/uL Highland # 0.6 0-0.8 103/uL Eos # 0.1 0-0.6 103/uL Baso # 0.0 0-0.1 103/uL Reference Lab ([facility]) :50:00 Result Normal Range Units Levetiracetam (Keppra) 13 mcg/mL Therapeutic Levels: Drug Dosage Trough (mcg/mL) Peak (mcg/mL) 500 mg BID3.1 - 10.0 10.0 - 25.0 1000 mg BID 4.9 - 37.1 30.0 - 40.0 1500 mg BID 7.0 - 34.0 36.1 - 70.0 Toxic level not established TEST PERFORMED AT: [facility] [address] [place] [address] JOHN OTERO MD,FCAP Body Fluid [id number]:16:00 Result Normal Range Units pH 6.0 4.5-8.0 Cardiac :52:00 Result Normal Range Units Troponin I < [...] patient history should be interpreted with caution. Hematology - Other (Misc) :20:00 Result Normal Range Units Sed Rate 2 0-20 Radiology Results :26:00 Result Normal Range Units MPV 9.9 7.3-10.4 FL :20:00 Result Normal Range Units MPV H 11.0 7.3-10.4 FL History of procedures No procedures recorded for this patient visit. Functional status Functional Status Finding Observation Time Hearing Prob Loc none [id number]:40 Vision Problems yes :40 Vision Correct Dev glasses 01-59-271131:40 Ambulation Asst Dev none :40 Range of Motion full :40 Muscle Strength RUE 5 ROM full resist :40 Muscle Strength RLE 5 ROM full resist :40 Muscle Strength LUE 5 ROM full resist :40 Muscle Strength LLE 5 ROM full resist :40 Transfers assist x 1 :40 Ambulation in room [id number]:40 Balance unsteady :40 Bathing Assistance minimal :40 Eating Assistance none :40 Dressing Assistance minimal :40 Toileting Assistance minimal :40 Transfer Assistance minimal :40 Decline Slf Care/Mob no :40 Phys Cond Stable yes :40 Nutrition normal :40 Diet clear :40 Oral Cavity moist and intact :40 Teeth intact :40 Dental Hygiene good :40 Abdomen Appearance round :40 Abdomen soft :40 Bowel Sounds present :40 NG Tube no :40 Feeding Tube none :40 Vick no :40 Cont Bladder Irr no :40 Ostomy no :40 Stool normal :40 Urination normal :40 Quality sym/unlabored :40 Cough absent :40 Secretions no :40 Breath Sounds RUL clear :40 Breath Sounds RML clear :40 Breath Sounds RLL clear :40 Breath Sounds BENJA clear :40 Breath Sounds LLL clear :40 Airway natural :40 Chest Tube no :40 Oxygen no :28 Oxygen Flow Rate RA :40 C-PAP yes Comment: states has one at home :40 BI-PAP no :40 Temp >100.4 no :40 Temp <96.8 no :40 Chills with rigors no :40 HR > 90bpm yes :40 Respirations > 20 no :40 Systolic <90 no :40 headache stiff neck no :40 WBC > 60392 no :40 WBC < 4000 no :40 IV Site Location R AC :19 IV Type peripheral :19 IV Site Information existing :19 IV Site Festus 20 :19 IV Site Appearance WNL :19 IV Site Color clear :19 IV Site Patent yes :19 Dressing Type occlusive :19 Nursing Note Pt off unit at this time c EMS at this time in good condition. Pt stable at this time. :30 Cognitive Status Finding Observation Time Oriented To Date 5 Yes :[address] 5 Yes :40 Name 3 Objects 3 Yes :40 Name Object in Rm 2 Yes :40 Recall 3 Objects 3 Yes :40 Repeats a Phrase 1 Yes :40 Follows Verbal Direc 3 Yes :40 Follows Written Dire 1 Yes :40 Write a Sentance 1 Yes :40 Draw an Object 1 Yes :40 Mini Mental Total 25 points :40 Learning Ability comprehends well :19 Neurological no :19 Psychological yes 98-58-413520:19 Physical no [id number]:19 Hearing no 59-33-264135:19 Transplant Worker Needed no :19 Sign Language no :19 Emotional no :19 Vision yes :19 Laguage no :19 Financial no :19 Vital signs Type Value Date Respiration Rate 18breaths per minute :28 Pulse 91beats per minute :28 Oxygen Saturation 99% :28 BP Systolic 108mmHg :28 BP Diastolic 73mmHg :28 Temperature 98.9F :28 Height 65inches :40 Weight 297.0LB :40 Social history Type Value Smoking Status FORMER SMOKER Treatment Plan No treatment plan text is available for this visit. 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
--- OUTSIDE RECORDS SUMMARY | 2016-11-04 20:01 | XMS REPORT ---
Author Author [facility] Medical Staff Organization [facility] Address [address] [place], [place] [address] Phone [phone] Summary purpose TRANSITION OF CARE AUTO GENERATION [...] tests and/or laboratory data RESULTS Radiology Results [id number]:01:00 MRI BRAIN W/WO CONT PACs Image DATE OF EXAM: Mar 17 2015 MRI 0036-MRI BRAIN W/WO CONTRAST : RADIOLOGY REPORT DATE OF SERVICE: 03/17/15 HISTORY: Migraine headaches, dizziness, difficulty thinking and speaking, recent abnormal CT scan. PRE AND POSTCONTRAST MRI BRAIN 1444 HOURS Cranial imaging was performed in the axial, sagittal, and coronal planes. 15 mL Magnevist was administered for enhancement. There is no restricted diffusion to suggest acute infarction. The ventricles are normal. There are no masses or midline shift. The lucency noted on the CT scan in the right frontal parietal region represents a prominent sulcus without definite infarct or other cortical abnormality. There is a prominent deep draining cortical vein in the right superior parietal region although no definite associated venous tuft or other abnormal enhancement is noted. There is otherwise a normal pattern of intracranial contrast enhancement. The cerebellum and brainstem are normal. Nerves VII and VIII complexes are normal. There are no unusual intra or extra-axial fluid collections. The bony calvarium is normal. The visualized sinuses are also within normal limits. There is no evidence of demyelinating disease. IMPRESSION: Normal pre and postcontrast MRI brain. MD SOLEDAD Mays/in03/17/2015 14:49:00 / 03/17/2015 14:52:50 cc:Tata Martínez APRN This document has been electronically Signed by: On: History of procedures No procedures recorded for [...]
--- OUTSIDE RECORDS SUMMARY | 2016-11-04 20:03 | XMS REPORT | Clinical Summary ---
Author Author Admin, QIE Organization [employer] Address Unknown Phone Unavailable Allergies, Adverse Reactions, [...] specified Headache, atypical 784.0 Active Luigi Martínez [employer] Headache Elevated blood glucose 790.29 Active Demetrius [...] tab every 6 hours prn SUMATRIPTAN SUCCINATE 75006298179 Active Jillina Frazell [employer]ER Active AMBIEN 5 MG ORAL TABS 1 tab at bedtime ZOLPIDEM TARTRATE 41909793621 Active Jillina Frazell [employer] LO[employer]ER Active PROZAC 20 MG ORAL CAPS 1 tab daily FLUOXETINE HCL 88391129456 Active Jillina Frazell [employer] LO[employer]ER Active ABILIFY 15 MG ORAL TABS 1 tab daily ARIPIPRAZOLE 49375075247 Active Jillina Frazell [employer]ER Active MINIPRESS 2 MG CAPS 4 cap po at night PRAZOSIN HCL 01797362857 Active Jillina Frazell [employer]ER Active TOPAMAX 50 MG ORAL TABS 1 tab twice daily TOPIRAMATE 50407693953 Active Jillina Frazell [employer]ER Active SAPHRIS 5 MG SUBL 1 po bid ASENAPINE MALEATE 62449687846 No Longer Active Jillina Frazell [employer] LO[employer]ER Active LATUDA 80 MG TABS Take one by mouth daily LURASIDONE HCL 93018166233 No Longer Active Jillina Frazell [employer] LO[employer]ER Active AMLODIPINE BESYLATE 5 MG TABS 1 tablet by mouth daily AMLODIPINE BESYLATE 40747645523 No Longer Active Pacollina Johnl [employer] LO[employer]ER Active AMITRIPTYLINE HCL 100 MG TAB one at hs AMITRIPTYLINE HCL 31671995452 No Longer Active Vishal Hui MD Active TRAZODONE HCL 100 MG TAB take 1 at bedtime TRAZODONE HCL 36378143431 No Longer Active Vishal Hui MD Active VYVANSE 40 MG CAPS 1 daily, LISDEXAMFETAMINE DIMESYLATE 33259060047 No Longer Active Vishal Hui MD Active IBUPROFEN 600 MG TAB 1 po TID PRN IBUPROFEN 24195919473 No Longer Active Vishal Hui MD Active MIRALAX PACK 1 po qd PRN Constipation POLYETHYLENE GLYCOL 3350 63342924464 Active Vishal Hui MD Active PROZAC 20 MG CAP Take one by mouth daily FLUOXETINE HCL 14499264866 No Longer Active Vishal Hui MD Active ZOFRAN 4 MG TABS 1 po q6hr PRN Nausea ONDANSETRON HCL Active Vishal Hui MD Active BACTRIM DS 800-160 MG TABS 1 pill by mouth twice daily SULFAMETHOXAZOLE-TRIMETHOPRIM 55047065688 No Longer Active Sahara Rodriguez MD PhD Active DIFLUCAN 150 MG TAB 1 tablet by mouth daily FLUCONAZOLE 31993559716 No Longer Active Vishal Hui MD Active TIZANIDINE HCL 4 MG TABS 1 po q6hr PRN Muscle Spasm/Back Pain TIZANIDINE HCL 30933777525 Active Vishal Hui MD Active CLINDAMYCIN HCL 150 MG CAPS 1 four times a day CLINDAMYCIN HCL 41528575273 No Longer Active Neeraj Collins MD Active KEFLEX 500 MG ORAL CAPS 1 cap QID by mouth CEPHALEXIN 83796633873 No Longer Active Neeraj Collins MD Active DIFLUCAN 150 MG TABS 1 pill every other day x 2 doses FLUCONAZOLE 54791764941 No Longer Active Sahara Rodriguez MD PhD Active MELATONIN 3 MG CAPS 2 po q hs MELATONIN 29717734261 No Longer Active Sahara Rodriguez MD PhD Active MULTIVITAMINS CAPS Take one by mouth daily MULTIPLE VITAMIN 15873068583 No Longer Active Sahara Rodriguez MD PhD Active BACTRIM DS 800-160 MG TAB 1 tab by mouth twice daily TRIMETHOPRIM-SULFAMETHOXAZOLE 60525942734 No Longer Active Sahara Rodriguez MD PhD Active [facility] PROBIOTIC ORAL CHEW 2 daily po PROBIOTIC PRODUCT 92139993811 No Longer Active Sahara Rodriguez MD PhD Active BACTRIM DS 800-160 MG TABS 1 po BID x 7 days SULFAMETHOXAZOLE-TRIMETHOPRIM 30580517938 No Longer Active Vishal Hui MD Active CHANTIX STARTING MONTH EARNEST 0.5 MG X 11 & 1 MG X 42 TABS 0.5mg daily for 3 days , then 0.5mg BID for 4 days, then 1mg BID VARENICLINE TARTRATE 83914344877 No Longer Active TAMARA Gray Active METOPROLOL TARTRATE 50 MG TAB 1 po bid METOPROLOL TARTRATE 51991824236 Active Vishal Hui MD Active VERAPAMIL HCL CR 120 MG TAB CR 1 po bid VERAPAMIL HCL 46511755964 No Longer Active Vishal Hui MD Active METOPROLOL SUCCINATE 50 MG TB24 1 tablet by mouth daily METOPROLOL SUCCINATE 43792117463 No Longer Active Vishal Hui MD Active TRAMADOL HCL 50 MG TABS 1-2 po TID PRN Pain TRAMADOL HCL 28222620932 Active Vishal Hui MD Active SAPHRIS 10 MG SUBL 1 tab po bid ASENAPINE MALEATE 07048029775 No Longer Active Vishal Hui MD Active LISINOPRIL 20 MG TABS 1 tab po qd LISINOPRIL 32484678474 No Longer Active Vishal Hui MD Active BENADRYL 25 MG CAP 2 po tid prn anxiety DIPHENHYDRAMINE HCL 33764584873 Active Vishal Hui MD Active LATUDA 20 MG TABS Take one by mouth daily LURASIDONE HCL 45506652047 No Longer Active Vishal Hui MD Active TRAZODONE HCL 50 MG TABS 1/2 tab po qd prn for anxiety TRAZODONE HCL 46557631753 No Longer Active Vishal Hui MD Active PIROXICAM 20 MG CAPS 1 cap po qd PRN Pain PIROXICAM 95304120357 Active Vishal Hui MD Active OMEPRAZOLE 20 MG TBEC 1 po q a.m. 30min prior to first food intake OMEPRAZOLE 31282223797 Active Vishal Hui MD Active RANITIDINE HCL 150 MG CAPS 1 twice a day RANITIDINE HCL 01346927920 Active Vishal Hui MD Active LINZESS 290 MCG CAPS Take one by mouth daily LINACLOTIDE 91150056480 No Longer Active Vishal Hui MD Active SAPHRIS 5 MG SUBL 1 tab po qd ASENAPINE MALEATE 38682072683 No Longer Active Vishal Hui MD Active ZALEPLON 10 MG CAPS 1 cap po every other night ZALEPLON 23697085366 No Longer Active Vishal Hui MD Active LYRICA 50 MG CAPS 1 tab po TID PREGABALIN 89490418643 No Longer Active Vishal Hui MD Active LORATADINE 10 MG TABS 1 tab po qd LORATADINE 73596454008 No Longer Active Vishal Hui MD Active VERAPAMIL HCL ER 180 MG CR-TABS 1 tab po bid VERAPAMIL HCL 39863626645 No Longer Active Vishal Hui MD Active MIRALAX POWD 1 capfull once daily POLYETHYLENE GLYCOL 3350 17618134224 No Longer Active Vishal Hui MD Active PREDNISONE 20 MG TABS 1 tab po qd PREDNISONE 11493245666 No Longer Active Renzo Thornton DO Active LEVOFLOXACIN 500 MG TABS 1 tab po qd LEVOFLOXACIN 86215787773 No Longer Active Renzo Thornton DO Active BUSPIRONE HCL 15 MG TABS 1 tab po TID BUSPIRONE HCL 83178927863 No Longer Active Renzo Thornton DO Active BENZTROPINE MESYLATE 1 MG TABS 1 tab po qd BENZTROPINE MESYLATE 29417307736 No Longer Active Renzo Thornton DO Active ATENOLOL 25 MG TABS 1 tab po qd ATENOLOL 35771062570 No Longer Active Renzo Thornton DO Active ESCITALOPRAM OXALATE 20 MG TABS 1 tab po qd ESCITALOPRAM OXALATE 36457477773 No Longer Active Renzo Thornton DO Active ADVAIR DISKUS 250-50 MCG/DOSE AEPB 1 puff BID FLUTICASONE-SALMETEROL 49320955367 No Longer Active Renzo Thornton DO Active PREDNISONE 20 MG TAB 2 tabs daily for 3 days, 1 tab daily for 3 days, 1/2 tab daily for 2 days PREDNISONE 87107084614 No Longer Active Vishal Hui MD Active CEFDINIR 300 MG CAPS by mouth twice a day CEFDINIR 15704967198 No Longer Active Vishal Hui MD Active LANSOPRAZOLE 30 MG CPDR 1 cap po qd LANSOPRAZOLE 44188089451 No Longer Active Vishal Hui MD Active BACLOFEN 20 MG TABS 1 tab po tid BACLOFEN 57742649983 No Longer Active Vishal Hui MD Active ADVAIR DISKUS 250-50 MCG/DOSE AEPB 1 puff BID ADVAIR DISKUS 250-50 MCG/DOSE AEPB FLUTICASONE-SALMETEROL Inactive ESCITALOPRAM OXALATE 20 MG TABS 1 tab po qd ESCITALOPRAM OXALATE 20 MG TABS 205129 ESCITALOPRAM OXALATE Inactive ATENOLOL 25 MG TABS 1 tab po qd ATENOLOL 25 MG TABS 457258 ATENOLOL Inactive BENZTROPINE MESYLATE 1 MG TABS 1 tab po qd BENZTROPINE MESYLATE 1 MG TABS 691619 BENZTROPINE MESYLATE Inactive BUSPIRONE HCL 15 MG TABS 1 tab po TID BUSPIRONE HCL 15 MG TABS 886102 BUSPIRONE HCL Inactive LEVOFLOXACIN 500 MG TABS 1 tab po qd LEVOFLOXACIN 500 MG TABS 793351 LEVOFLOXACIN Inactive PREDNISONE 20 MG TABS 1 tab po qd PREDNISONE 20 MG TABS 084428 PREDNISONE Inactive MIRALAX POWD 1 capfull once daily MIRALAX POWD 603363 POLYETHYLENE GLYCOL 3350 Inactive VERAPAMIL HCL ER 180 MG CR-TABS 1 tab po bid VERAPAMIL HCL ER 180 MG CR-TABS VERAPAMIL HCL Inactive LORATADINE 10 MG TABS 1 tab po qd LORATADINE 10 MG TABS 604960 LORATADINE Inactive LYRICA 50 MG CAPS 1 tab po TID LYRICA 50 MG CAPS PREGABALIN Inactive ZALEPLON 10 MG CAPS 1 cap po every other night ZALEPLON 10 MG CAPS 255734 ZALEPLON Inactive SAPHRIS 5 MG SUBL 1 tab po qd SAPHRIS 5 MG SUBL ASENAPINE MALEATE Inactive TRAZODONE HCL 50 MG TABS 1/2 tab po qd prn for anxiety TRAZODONE HCL 50 MG TABS 558464 TRAZODONE HCL Inactive LATUDA 20 MG TABS Take one by mouth daily LATUDA 20 MG TABS LURASIDONE HCL Inactive LISINOPRIL 20 MG TABS 1 tab po qd LISINOPRIL 20 MG TABS 849005 LISINOPRIL Inactive SAPHRIS 10 MG SUBL 1 [...] twice daily BACTRIM DS 800-160 MG TAB 300536 TRIMETHOPRIM-SULFAMETHOXAZOLE Inactive MULTIVITAMINS CAPS Take one by mouth daily MULTIVITAMINS CAPS MULTIPLE VITAMIN Inactive MELATONIN 3 MG CAPS 2 po q hs MELATONIN 3 MG CAPS 19950526 MELATONIN Inactive KEFLEX 500 MG ORAL CAPS 1 cap QID by mouth KEFLEX 500 MG ORAL CAPS 299352 CEPHALEXIN Inactive CLINDAMYCIN HCL 150 MG CAPS 1 four times a day CLINDAMYCIN HCL 150 MG CAPS 870072 CLINDAMYCIN HCL Inactive DIFLUCAN 150 MG TAB 1 tablet by mouth daily DIFLUCAN 150 MG TAB 260178 FLUCONAZOLE Inactive PROZAC 20 MG CAP Take one by mouth daily PROZAC 20 MG CAP 470592 FLUOXETINE HCL Inactive IBUPROFEN 600 MG TAB 1 po TID PRN IBUPROFEN 600 MG TAB 850477 IBUPROFEN Inactive VYVANSE 40 MG CAPS 1 daily, VYVANSE 40 MG CAPS LISDEXAMFETAMINE DIMESYLATE Inactive TRAZODONE HCL 100 MG TAB take 1 at bedtime TRAZODONE HCL 100 MG TAB 375300 TRAZODONE HCL Inactive AMITRIPTYLINE HCL 100 MG TAB one at hs AMITRIPTYLINE HCL 100 MG TAB 251679 AMITRIPTYLINE HCL Inactive AMLODIPINE BESYLATE 5 MG TABS 1 tablet by mouth daily AMLODIPINE BESYLATE 5 MG TABS 946035 AMLODIPINE BESYLATE Inactive LATUDA 80 MG TABS Take one by mouth daily LATUDA 80 MG TABS LURASIDONE HCL Inactive SAPHRIS 5 MG SUBL 1 po bid SAPHRIS 5 MG SUBL ASENAPINE MALEATE Inactive CEFDINIR 300 MG CAPS by mouth twice a day CEFDINIR 300 MG CAPS 983874 CEFDINIR Inactive PREDNISONE 20 MG TAB 2 tabs daily for 3 days, 1 tab daily for 3 days, 1/2 tab daily for 2 days PREDNISONE 20 MG TAB 457807 PREDNISONE Inactive BACTRIM DS 800-160 MG TABS 1 po BID x 7 days BACTRIM DS 800-160 MG TABS 766888 SULFAMETHOXAZOLE-TRIMETHOPRIM Inactive DIFLUCAN 150 MG TABS 1 pill every other day x 2 doses DIFLUCAN 150 MG TABS 054074 FLUCONAZOLE Inactive BACTRIM DS 800-160 MG TABS 1 pill by mouth twice daily BACTRIM DS 800-160 MG TABS 705856 SULFAMETHOXAZOLE-TRIMETHOPRIM Inactive Vital Signs Date Name Value [...] Panel - Chemistry sodium, serum 139 mmol/L 490-727 1338/12/03 carbon dioxide, venous blood 28.5 mmol/L 21.0-32.0 [...] 5.5 % 4.3-6.0 cholesterol, serum 159 mg/dL 593-204 6498/12/03 triglyceride, serum, fasting 118 mg/dL 30-200 HDL [...] ... - Chemistry sodium, serum 140 mmol/L 293-923 5285/05/28 potassium, serum 4.2 mmol/L 3.5-5.2 chloride, serum [...] Panel - Chemistry sodium, serum 141 mmol/L 655-137 5359 potassium, serum 4.3 mmol/L 3.5-5.2 chloride, serum 106 mmol/L 98-107 carbon dioxide, venous blood 25.7 mmol/L 21.0-32.0 blood glucose 119 mg/dL 65-110 urea nitrogen, blood 22 mg/dL 7-18 creatinine, serum 0.90 mg/dL 0.60-1.30 alanine aminotransferase (SGPT), serum 28 U/L 12-78 aspartate aminotransferase (SGOT), serum 13 U/L 15-37 calcium, serum 8.5 mg/dL 8.5-10.1 bilirubin, serum, total 0.20 mg/dL 0.00-1.00 sodium, serum 139 mmol/L 414-769 0284/12/22 carbon dioxide, venous blood 26.8 mmol/L 21.0-32.0 [...] Rate - Chemistry sodium, serum 139 mmol/L 281-586 5265/12/11 carbon dioxide, venous blood 25.4 mmol/L 21.0-32.0 [...] Panel - Chemistry sodium, serum 139 mmol/L 868-773 5567/12/31 potassium, serum 4.8 mmol/L 3.5-5.2 chloride, serum 106 mmol/L 98-107 carbon dioxide, venous blood 24.3 mmol/L 21.0-32.0 blood glucose 90 mg/dL 65-110 urea nitrogen, blood 16 mg/dL 7-18 creatinine, serum 1.00 mg/dL 0.60-1.30 alanine aminotransferase (SGPT), serum 41 U/L 12-78 aspartate aminotransferase (SGOT), serum 17 U/L 15-37 calcium, serum 8.6 mg/dL 8.5-10.1 bilirubin, serum, total 0.30 mg/dL 0.00-1.00 cholesterol, serum 108 mg/dL 802-413 1578/12/31 triglyceride, serum, fasting 120 mg/dL 30-200 HDL [...] 5.5 5.0-8.5 Lab Report: UADIP W/MICRO, AUTO, [facility] [place] - Chemistry RBC, urine, dipstick Negative Negative protein, total urine random Negative mg/dL Negative human chorionic gonadotropin, urine, qualitative (urine test) Negative Negative Lab Report: [facility]IP W/MICRO, AUTO, [facility] - Urinalysis glucose, urine, semiquantitative Negative Negative ketones, urine, by test strip Negative Negative bilirubin, urine Negative Negative urine color Yellow Colorless;Lightyellow;Straw;Yellow appearance, urine Clear Clear specific gravity, urine 1.025 1.000-1.030 pH, urine, semiquantitative 7.0 5.0-8.5 urobilinogen, urine, semiquantitative (dipstick) 0.2 Normal leukocyte esterase, urine, by dipstick Negative Negative nitrite, urine, semiquantitative Negative Negative Lab Report: Varicella-Zoater Inga IgG,IgM/38012, HEP Be Antibody/556, RUB ... - Serology rubella antibody, serum, IgG 2.88 Encounters Code Encounter Date Provider Facility CPT-17719 Level 3 Est. Patient 11:37:33 [employer] Vishal Hui MD [facility] CPT-42013 Level 3 Est. Patient 08:41:09 [employer] Vishal Hui MD [facility] CPT-83955 Level 4 Est. Patient 10:19:35 [employer] Vishal Hui MD [facility] CPT-86761 Level 3 Est. Patient 13:35:45 CDT Vishal Hui MD [facility] CPT-57486 Level 4 Est. Patient 10:08:37 CDT Vishal Hui MD [facility] CPT-13968 Level 3 Est. Patient 11:22:10 CDT Vishal Hui MD [facility] CPT-95490 Level 3 Est. Patient 11:03:32 CDT Sahara Rodriguez MD [facility] CPT-98746 Level 3 Est. Patient 09:41:35 CDT Vishal Hui MD [facility]-99790 Level 3 Est. Patient 12:00:41 CDT Neeraj Collins MD [facility] CPT-52174 Level 3 Est. Patient 09:16:24 CDT Vishal Hui MD [facility] CPT-82343 Level 4 Est. Patient 13:59:09 CDT Neeraj Collins MD [facility] CPT-41177 Level 3 Est. Patient 15:19:43 CDT Renzo Thornton DO [facility] CPT-13033 Level 3 Est. Patient 18:10:26 CDT Sahara Rodriguez MD [facility]-18638 Level 3 Est. Patient 14:49:50 CDT Vishal Hui MD [facility] CPT-03602 Level 4 Est. Patient 18:41:46 CDT Neeraj Collins MD [facility]-69489 Level 4 Est. Patient 09:18:38 [employer]IP[employer]ER Vishal Hui MD [facility] CPT-93852 Level 3 Est. Patient 14:43:55 [employer] OFFICER Vishal Hui MD [facility] CPT-78994 Level 3 Est. Patient 15:26:33 [employer]ER Sahara Rodriguez MD PhD [facility] CPT-53303 Level 3 Est. Patient 10:32:14 [employer]ICER Vishal Hui MD [facility] CPT-98471 Level 3 Est. Patient 15:12:52 [employer] OFFICER Vishal Hui MD [facility] CPT-46009 Level 4 Est. Patient 09:19:27 CDT Vishal Hui MD [facility] CPT-86520 Level 3 Est. Patient 15:53:00 CDT Renzo Thornton [facility] CPT-19306 Level 3 Est. Patient 15:50:30 CDT Renzo Thornton [facility] CPT-03081 Level 3 Est. Patient 16:55:24 CDT Vishal Hui MD [facility] Procedures Code Procedure Name Date Entry Date Standard Description CPT-44885 Chest 2V Frontal and Lat 11:46:38 [employer] CPT-50477 Venipuncture Draw Fee 09:12:45 [employer] CPT-J3420 Vitamin B12 1000mcg (Cyanocobalamin) 08:50:15 [employer]ER 02/08 CPT-21649 Abx/Therapy Injection 08:50:15 [employer] CPT-Cryo Cryotherapy 10:19:35 [employer] CPT-000 Give Appropriate Flu Vaccine 09:22:16 CDT CPT-J3420 Vitamin B12 1000mcg (Cyanocobalamin) 19:08:57 CDT 01/11 CPT-09477 Abx/Therapy Injection 19:08:57 CDT CPT-J3420 Vitamin B12 1000mcg (Cyanocobalamin) 08:19:08 CDT 12/11 CPT-68577 Abx/Therapy Injection 08:19:08 CDT CPT-J3420 Vitamin B12 1000mcg (Cyanocobalamin) 14:48:00 CDT 11/09 CPT-37782 Abx/Therapy Injection 14:47:59 CDT CPT-J3420 Vitamin B12 1000mcg (Cyanocobalamin) 08:34:04 CDT 10/09 CPT-68490 Abx/Therapy Injection 08:34:04 CDT CPT-J3420 Vitamin B12 1000mcg (Cyanocobalamin) 09:18:52 CDT 09/11 CPT-11224 Abx/Therapy Injection 09:18:52 CDT CPT-J3420 Vitamin B12 1000mcg (Cyanocobalamin) 08:35:44 CDT 09/04 CPT-96841 Abx/Therapy Injection 08:35:44 CDT CPT-89645 Immunization Single Admin 11:07:16 CDT CPT-39994 Hepatitis B adult IM 11:07:16 CDT CPT-J3420 Vitamin B12 1000mcg (Cyanocobalamin) 11:00:49 CDT 08/28 CPT-J1040 Depo Medrol 80 mg (Methyl Prednisolone Acetate) 11:00: 49 CDT CPT-04658 Abx/Therapy Injection 11:00:49 CDT CPT-J1040 Depo Medrol 80 mg (Methyl Prednisolone Acetate) 09:16: 23 CDT CPT-J3420 Vitamin B12 1000mcg (Cyanocobalamin) 08:27:05 CDT 08/20 CPT-54319 Abx/Therapy Injection 08:27:05 CDT CPT-64292 Recombivax HB Injection Suspension 5 MCG/0.5ML 10:00:41 CDT CPT-45865 Administration single or combination vaccine inc oral 10 :00:41 CDT CPT-18457 Sono transvag pelvis non OB uterus ovaries cervix 16:36: 57 CDT CPT-49893 LS spine comp w obliq 09:50:55 [employer] CPT-57616 Abd compl w upright 09:50:55 [employer] CPT-J1100 Decadron 4mg (Dexamethasone) 15:51:24 [employer] CPT-J1030 Depo Medrol 40 mg (Methyl Prednisolone Acetate) 15:51: 24 [employer] CPT-45042 Abx/Therapy Injection 15:51:24 [employer]IP[employer]ER CPT-J1100 Decadron 4mg (Dexamethasone) 15:26:33 [employer] CPT-J1030 Depo Medrol 40 mg (Methyl Prednisolone Acetate) 15:26: 33 [employer] CPT-09617 Sono retroperitoneal complete kidneys and bladder 17:15: 30 CDT CPT-47742 Abd compl w upright 16:09:25 CDT CPT-J1100 Decadron 8mg (Dexamethasone) 17:07:57 CDT CPT-55926 Abx/Therapy Injection 17:07:57 CDT CPT-J1100 Decadron 8mg (Dexamethasone) 16:55:24 CDT CPT-40114 Chest 2V Frontal and Lat 16:32:44 CDT
--- OUTSIDE RECORDS SUMMARY | 2016-11-04 20:07 | XMS REPORT | Clinical Summary ---
Author Author Admin, E Organization [employer] Address Unknown Phone Unavailable Allergies, Adverse Reactions, [...] Active Ahmet Carbajal MD Generalized anxiety disorder Core Dipper well woman exam V72.31 Active Suzan Boo [...] MD Health screening ICD-V70.0 Inactive Suzan Boo COPYWRITER Sinus tachycardia ICD-427.89 Inactive Suzan Boo COPYWRITER Smoker/tobacco use disorder-smoking cessation discussed ICD-305.1 Inactive Vishal Hui MD Abdominal pain ICD-789.00 Inactive Vishal Hui MD Cellulitis ICD-682.9 Inactive Vishal Hui MD Pelvic pain ICD-625.9 Inactive Vishal Hui MD Abscess, skin ICD-682.9 Inactive Vishal Hui MD Physical examination ICD-V70.0 Inactive Vishal Hui MD Vaginitis ICD-616.10 Inactive Vishal Hui MD 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 Inactive Vishal Hiu MD Fatigue ICD-780.79 Inactive Vishal Hui MD [...] SOLN 30mL oral daily for IBS-C LACTULOSE 61040177906 Active Suzan Boo APRN Active TESSALON PERLES 100 MG CAPS 1 three times a day as needed for cough BENZONATATE 76884915546 No Longer Active Suzan Boo APRN Active BACTRIM DS 800-160 MG TABS 1 twice a day SULFAMETHOXAZOLE-TRIMETHOPRIM 68867469819 No Longer Active Suzan Boo APRN Active DIFLUCAN 150 MG TABS 1 by mouth for yeast FLUCONAZOLE 17160858484 No Longer Active Suzan Boo APRN Active EQ NICOTINE 21 MG/24HR TRANS PT24 Apply daily to stop smoking NICOTINE 66487952447 No Longer Active Suzan Boo APRN Active PREDNISONE 10 MG TABS 2 daily for 5 days then 1 daily for 5 days PREDNISONE 80614931345 No Longer Active Suzan Boo APRN Active LEVAQUIN 500 MG TABS 1 daily for infection LEVOFLOXACIN 28960006235 No Longer Active Suzan Boo APRN Active TROPICAMIDE 0.5 % OPHTH SOLN 1 drop PRN eye spasms TROPICAMIDE 37725489260 No Longer Active Suzan Boo APRN Active PREDNISONE 20 MG TAB 1 tablet daily x 4 days PREDNISONE 51467181788 No Longer Active Suzan Boo APRN Active ACETAMINOPHEN-CODEINE 120-12 MG/5ML SOLN 5 ml by mouth every 4-6 hours if needed for cough ACETAMINOPHEN-CODEINE 04053719529 No Longer Active Suzan Boo APRN Active KEFLEX 500 MG CAP 1 po qid CEPHALEXIN 92974649077 No Longer Active Suzan Boo APRN Active FLOVENT HFA 110 MCG/ACT AERO 2 puffs inhaled b.i.d. FLUTICASONE PROPIONATE HFA 27787162058 Active Renzo Thornton DO Active RISPERDAL 4 MG ORAL TABS 1 tab at bedtime RISPERIDONE 76893974077 Active Samantha Rothman RMA Active ZOFRAN 4 MG TABS 1 po q6hr PRN Nausea ONDANSETRON HCL No Longer Active Suzan Boo APRN Active FLUTICASONE PROPIONATE 50 MCG/ACT SUSP 2 sprays each nostril daily before bed. FLUTICASONE PROPIONATE 86295258625 No Longer Active Suzan Boo APRN Active ASPIRIN 325 MG ORAL TABS 1 tab q.d ASPIRIN 70847854574 No Longer Active Suzan Boo APRN Active HALOPERIDOL 10 MG ORAL TABS 1 tab q.d HALOPERIDOL 87290844818 No Longer Active Suzan Boo APRN Active GUAIFENESIN-CODEINE 100-10 MG/5ML SYRP 5ml every 4 to 6 hours as needed for cough GUAIFENESIN-CODEINE 51531461015 No Longer Active uSzan Boo APRN Active ZITHROMAX Z-EARNEST 250 MG TABS 2 today and then 1 daily for 4 days AZITHROMYCIN 72893947308 No Longer Active Suzan Boo APRN Active CLONAZEPAM 1 MG ORAL TABS 1 twice a day and an additional 1 tablet every other day as needed for pseudoseizures or anxiety CLONAZEPAM 72289751104 Active Ahmet Carbajal MD Active HYDROCODONE-ACETAMINOPHEN 5-325 MG ORAL TABS 1 tab two times a day HYDROCODONE-ACETAMINOPHEN 15481295264 No Longer Active Ahmet Carbajal MD Active LAMICTAL 100 MG ORAL TABS 1 tab 2 times qd. LAMOTRIGINE 16283329928 Active Ahmet Carbajal MD Active PREDNISONE 20 MG TABS 2 daily for 5 days then 1 daily for 5 days PREDNISONE 68105181315 No Longer Active Ahmet Carbajal MD Active FLUTICASONE PROPIONATE 50 MCG/ACT SUSP 1 to 2 sprays each nostril daily for allergies FLUTICASONE PROPIONATE 34711738801 Active Tila Valenzuela Active BENADRYL 25 MG CAP 4 po at bedtime for insomnia DIPHENHYDRAMINE HCL 45247300018 No Longer Active Ahmet Carbajal MD Active ADVAIR DISKUS 250-50 MCG/DOSE INH AEPB 1 puff twice a day for asthma FLUTICASONE-SALMETEROL 55606905710 No Longer Active Ahmet Carbajal MD Active KLONOPIN 1 MG ORAL TABS 1 tab po TID CLONAZEPAM 71435464051 No Longer Active Ahmet Carbajal MD Active ABILIFY MAINTENA 400 MG IM SUSR 400mg injection every 26 days ARIPIPRAZOLE 42119175888 No Longer Active Ahmet Carbajal MD Active TRAMADOL HCL 50 MG TABS 1/2-1 tab TID PRN TRAMADOL HCL 65695413931 No Longer Active Ahmet Carbajal MD Active BACTRIM DS 800-160 MG TABS 1 twice a day SULFAMETHOXAZOLE- TRIMETHOPRIM 63509311477 No Longer Active Ahmet Carbajal MD Active PROAIR HFA 108 (90 BASE) MCG/ACT AERS 2 puffs four times a day as needed 2015 ALBUTEROL SULFATE 30960976701 Active Ahmet Carbajal MD Active MONISTAT 7 COMBO PACK WOODROW 100 & 2 MG-% (9GM) VAG KIT 1 applicatorful per vagina q pm x 7 MICONAZOLE NITRATE 41408561813 No Longer Active Ahmet Carbajal MD Active FLAGYL 500 MG TAB 1 tablet by mouth bid METRONIDAZOLE 60402344853 No Longer Active Ahmet Carbajal MD Active OXYCODONE HCL ER 10 MG ORAL T12A 1/2 tab by mouth every 4 hours prn OXYCODONE HCL 18855441191 No Longer Active Ahmet Carbajal MD Active METHYLPREDNISOLONE 4 MG ORAL TABS po daily METHYLPREDNISOLONE 61876072503 No Longer Active Ahmet Carbajal MD Active LEVOFLOXACIN 500 MG ORAL TABS po daily LEVOFLOXACIN 51253015593 No Longer Active Ahmet Carbajal MD Active VIIBRYD 10 MG ORAL TABS Take 1 tablet once a day VILAZODONE HCL 17569579770 No Longer Active Ahmet Carbajal MD Active TOPAMAX 50 MG ORAL TABS 1 tab twice daily TOPIRAMATE 11647675686 No Longer Active Ahmet Carbajal MD Active DICLOFENAC SODIUM 50 MG TBEC 1 tablet by mouth four times daily PRN Pain 2015 DICLOFENAC SODIUM 63616264744 No Longer Active Ahmet Carbajal MD Active ADZENYS XR-ODT 6.3 MG ORAL TBED 1 tab po daily for ADHD AMPHETAMINE 56457408130 No Longer Active Ahmet Carbajal MD Active CHANTIX 1 MG TABS 1 twice a day to help quit smoking VARENICLINE TARTRATE 52869787365 No Longer Active Dipika Burgos MD Active CHANTIX STARTING MONTH EARNEST 0.5 MG X 11 & 1 MG X 42 TABS take as directed 2015 VARENICLINE TARTRATE 15677261444 No Longer Active Dipika Burgos MD Active TESSALON PERLES 100 MG CAP 1 to 2 tablets by mouth 3 times daily as needed for cough BENZONATATE 73028988184 No Longer Active Luigi Martínez APRN Active IMITREX 50 MG ORAL TABS 0.5 po x 1 PRN Headache. May repeat dose x 1 in 2 hours if needed SUMATRIPTAN SUCCINATE 77596248271 Active Ahmet Carbajal MD Active HYDROCODONE-ACETAMINOPHEN 5-325 MG TABS 1 to 2 four times a day as needed for pain use until can be seen by specialist HYDROCODONE- ACETAMINOPHEN 23567490858 No Longer Active Vishal Hui MD Active PROAIR HFA 108 (90 BASE) MCG/ACT AERS 2 puffs four times a day as needed 2015 ALBUTEROL SULFATE 97644636178 No Longer Active Vishal Hui MD Active PREDNISONE 20 MG TABS 2 daily for 5 days then 1 daily for 5 days PREDNISONE 85544812846 No Longer Active Vishal Hui MD Active ZITHROMAX Z-EARNEST 250 MG TABS 2 today and then 1 daily for 4 days AZITHROMYCIN 16461094189 No Longer Active Vishal Hui MD Active DICLOFENAC POTASSIUM TABS Take 1 tablet twice a day (pt. is not sure of the dose.) DICLOFENAC POTASSIUM TABS 69367489490 No Longer Active Vishal Hui MD Active VERAPAMIL HCL ER 120 MG ORAL CR-TABS Take 1 tablet by mouth twice a day. VERAPAMIL HCL 31350798182 Active Vishal Hui MD Active FLAGYL 500 MG TAB 1 tablet by mouth bid METRONIDAZOLE 83988062952 No Longer Active Vishal Hui MD Active VALIUM 5 MG TAB Take 1-2 tablets daily DIAZEPAM 60260611256 No Longer Active Fabiola Johnson APRN Active METOPROLOL TARTRATE 25 MG ORAL TABS 1/2 tablet twice daily for heart rate and blood pressure METOPROLOL TARTRATE 62024334167 No Longer Active Fabiola Johnson APRN Active MIRALAX ORAL POWD 17GMS DAILY IN WATER POLYETHYLENE GLYCOL 3350 60475494793 Active TAMARA Casey Active MIRALAX PACK 1 po qd PRN Constipation POLYETHYLENE GLYCOL 3350 69732045060 No Longer Active Ahmet Carbajal MD Active MINIPRESS 2 MG CAPS 4 cap po at night PRAZOSIN HCL 85375108471 No Longer Active Ahmet Carbajal MD Active PIROXICAM 20 MG CAPS 1 cap po qd PRN Pain PIROXICAM 87207840795 No Longer Active Ahmet Carbajal MD Active TRAMADOL HCL 50 MG TABS 1-2 po TID PRN Pain TRAMADOL HCL 54700832678 No Longer Active Ahmet Carbajal MD Active METOPROLOL TARTRATE 50 MG TAB 1 po bid METOPROLOL TARTRATE 99694524675 No Longer Active Ahmet Carbajal MD Active ABILIFY 15 MG ORAL TABS 1 tab daily ARIPIPRAZOLE 97874595370 No Longer Active Ahmet Carbajal MD Active PROZAC 20 MG ORAL CAPS 1 tab daily FLUOXETINE HCL 85478373913 No Longer Active Ahmet Carbajal MD Active AMBIEN 5 MG ORAL TABS 1 tab at bedtime ZOLPIDEM TARTRATE 18626427914 No Longer Active Ahmet Carbajal MD Active PREDNISONE 20 MG TAB 2 tabs daily for 4 days, 1 tab daily for 4 days, 1/2 tab daily for 4 days PREDNISONE 56627363407 No Longer Active Ahmet Carbajal MD Active KEFLEX 500 MG CAP 1 po TID x 10 days CEPHALEXIN 25821837656 No Longer Active Vishal Hui MD Active SAPHRIS 5 MG SUBL 1 po bid ASENAPINE MALEATE 30455221686 No Longer Active Jillina Mauricio COPYWRITER Active LATUDA 80 MG TABS Take one by mouth daily LURASIDONE HCL 84611997134 No Longer Active Jillina Frazell COPYWRITER Active AMLODIPINE BESYLATE 5 MG TABS 1 tablet by mouth daily AMLODIPINE BESYLATE 46015019433 No Longer Active Jillina Mauricio WALTERSN Active AMITRIPTYLINE HCL 100 MG TAB one at hs AMITRIPTYLINE HCL 27524711241 No Longer Active Vishal Hui MD Active TRAZODONE HCL 100 MG TAB take 1 at bedtime TRAZODONE HCL 62142799372 No Longer Active Vishal Hui MD Active VYVANSE 40 MG CAPS 1 daily, LISDEXAMFETAMINE DIMESYLATE 58110111116 No Longer Active Vishal Hui MD Active IBUPROFEN 600 MG TAB 1 po TID PRN IBUPROFEN 95331974217 No Longer Active Vishal Hui MD Active PROZAC 20 MG CAP Take one by mouth daily FLUOXETINE HCL 29715175885 No Longer Active Vishal Hui MD Active BACTRIM DS 800-160 MG TABS 1 pill by mouth twice daily SULFAMETHOXAZOLE-TRIMETHOPRIM 61628709297 No Longer Active Sahara Rodriguez MD PhD Active DIFLUCAN 150 MG TAB 1 tablet by mouth daily FLUCONAZOLE 52153864742 No Longer Active Vishal Hui MD Active TIZANIDINE HCL 4 MG TABS 1 po q6hr PRN Muscle Spasm/Back Pain TIZANIDINE HCL 90287913551 Active Vishal Hui MD Active CLINDAMYCIN HCL 150 MG CAPS 1 four times a day CLINDAMYCIN HCL 17115164471 No Longer Active Neeraj Collins MD Active KEFLEX 500 MG ORAL CAPS 1 cap QID by mouth CEPHALEXIN 26286591210 No Longer Active Neeraj Collins MD Active DIFLUCAN 150 MG TABS 1 pill every other day x 2 doses FLUCONAZOLE 58106581974 No Longer Active Sahara Rodriguez MD PhD Active MELATONIN 3 MG CAPS 2 po q hs MELATONIN 59609283221 No Longer Active Sahara Rodriguez MD PhD Active MULTIVITAMINS CAPS Take one by mouth daily MULTIPLE VITAMIN 39164299128 No Longer Active Sahara Rodriguez MD PhD Active BACTRIM DS 800-160 MG TAB 1 tab by mouth twice daily TRIMETHOPRIM-SULFAMETHOXAZOLE 23259304544 No Longer Active Sahara Rodriguez MD PhD Active [facility] PROBIOTIC ORAL CHEW 2 daily po PROBIOTIC PRODUCT 98597968482 No Longer Active Sahara Rodriguez MD PhD Active BACTRIM DS 800-160 MG TABS 1 po BID x 7 days SULFAMETHOXAZOLE-TRIMETHOPRIM 53529741043 No Longer Active Vishal Hui MD Active CHANTIX STARTING MONTH EARNEST 0.5 MG X 11 & 1 MG X 42 TABS 0.5mg daily for 3 days , then 0.5mg BID for 4 days, then 1mg BID VARENICLINE TARTRATE 86789457352 No Longer Active TAMARA Gray Active VERAPAMIL HCL CR 120 MG TAB CR 1 po bid VERAPAMIL HCL 29960746604 No Longer Active Vishal Hui MD Active METOPROLOL SUCCINATE 50 MG TB24 1 tablet by mouth daily METOPROLOL SUCCINATE 90634554583 No Longer Active Vishal Hui MD Active SAPHRIS 10 MG SUBL 1 tab po bid ASENAPINE MALEATE 54195785941 No Longer Active Vishal Hui MD Active LISINOPRIL 20 MG TABS 1 tab po qd LISINOPRIL 09862132146 No Longer Active Vishal Hui MD Active LATUDA 20 MG TABS Take one by mouth daily LURASIDONE HCL 42489065265 No Longer Active Vishal Hui MD Active TRAZODONE HCL 50 MG TABS 1/2 tab po qd prn for anxiety TRAZODONE HCL 49301974780 No Longer Active Vishal Hui MD Active OMEPRAZOLE 20 MG TBEC 1 po q a.m. 30min prior to first food intake OMEPRAZOLE 56012286412 Active TAMARA Casey Active RANITIDINE HCL 150 MG CAPS 1 twice a day RANITIDINE HCL 86388499721 Active Jilljanee Martínez APRN Active LINZESS 290 MCG CAPS Take one by mouth daily LINACLOTIDE 29101802254 No Longer Active Vishal Hui MD Active SAPHRIS 5 MG SUBL 1 tab po qd ASENAPINE MALEATE 68273891499 No Longer Active Vishal Hui MD Active ZALEPLON 10 MG CAPS 1 cap po every other night ZALEPLON 05816851750 No Longer Active Vishal Hui MD Active LYRICA 50 MG CAPS 1 tab po TID PREGABALIN 80782689341 No Longer Active Vishal Hui MD Active LORATADINE 10 MG TABS 1 tab po qd LORATADINE 20915333786 No Longer Active Vishal Hui MD Active VERAPAMIL HCL ER 180 MG CR-TABS 1 tab po bid VERAPAMIL HCL 88884481387 No Longer Active Vishal Hui MD Active MIRALAX POWD 1 capfull once daily POLYETHYLENE GLYCOL 3350 40697507031 No Longer Active Vishal Hui MD Active PREDNISONE 20 MG TABS 1 tab po qd PREDNISONE 81282942418 No Longer Active Renzo Thornton DO Active LEVOFLOXACIN 500 MG TABS 1 tab po qd LEVOFLOXACIN 52503725468 No Longer Active Renzo W Norberto DO Active BUSPIRONE HCL 15 MG TABS 1 tab po TID BUSPIRONE HCL 49441457358 No Longer Active Renzo Thornton DO Active BENZTROPINE MESYLATE 1 MG TABS 1 tab po qd BENZTROPINE MESYLATE 48208256569 No Longer Active Renzo Thornton DO Active ATENOLOL 25 MG TABS 1 tab po qd ATENOLOL 51142179286 No Longer Active Renzo Thornton DO Active ESCITALOPRAM OXALATE 20 MG TABS 1 tab po qd ESCITALOPRAM OXALATE 50162899200 No Longer Active Renzo Thornton DO Active ADVAIR DISKUS 250-50 MCG/DOSE AEPB 1 puff BID FLUTICASONE-SALMETEROL 57053371181 No Longer Active Renzo Thornton DO Active PREDNISONE 20 MG TAB 2 tabs daily for 3 days, 1 tab daily for 3 days, 1/2 tab daily for 2 days PREDNISONE 69766886802 No Longer Active Vishal Hui MD Active CEFDINIR 300 MG CAPS by mouth twice a day CEFDINIR 71659971798 No Longer Active Vishal Hui MD Active LANSOPRAZOLE 30 MG CPDR 1 cap po qd LANSOPRAZOLE 32557679519 No Longer Active Vishal Hui MD Active BACLOFEN 20 MG TABS 1 tab po tid BACLOFEN 32374738212 No Longer Active Vishal Hui MD Active ADVAIR DISKUS 250-50 MCG/DOSE AEPB 1 puff BID ADVAIR DISKUS 250-50 MCG/DOSE AEPB FLUTICASONE-SALMETEROL Inactive ESCITALOPRAM OXALATE 20 MG TABS 1 tab po qd ESCITALOPRAM OXALATE 20 MG TABS 773080 ESCITALOPRAM OXALATE Inactive ATENOLOL 25 MG TABS 1 tab po qd ATENOLOL 25 MG TABS 085005 ATENOLOL Inactive BENZTROPINE MESYLATE 1 MG TABS 1 tab po qd BENZTROPINE MESYLATE 1 MG TABS 994474 BENZTROPINE MESYLATE Inactive BUSPIRONE HCL 15 MG TABS 1 tab po TID BUSPIRONE HCL 15 MG TABS 275900 BUSPIRONE HCL Inactive LEVOFLOXACIN 500 MG TABS 1 tab po qd LEVOFLOXACIN 500 MG TABS 059727 LEVOFLOXACIN Inactive PREDNISONE 20 MG TABS 1 tab po qd PREDNISONE 20 MG TABS 650249 PREDNISONE Inactive MIRALAX POWD 1 capfull once daily MIRALAX POWD 745076 POLYETHYLENE GLYCOL 3350 Inactive VERAPAMIL HCL ER 180 MG CR-TABS 1 tab po bid VERAPAMIL HCL ER 180 MG CR-TABS VERAPAMIL HCL Inactive LORATADINE 10 MG TABS 1 tab po qd LORATADINE 10 MG TABS 018448 LORATADINE Inactive LYRICA 50 MG CAPS 1 tab po TID LYRICA 50 MG CAPS PREGABALIN Inactive ZALEPLON 10 MG CAPS 1 cap po every other night ZALEPLON 10 MG CAPS 566482 ZALEPLON Inactive SAPHRIS 5 MG SUBL 1 tab po qd SAPHRIS 5 MG SUBL ASENAPINE MALEATE Inactive TRAZODONE HCL 50 MG TABS 1/2 tab po qd prn for anxiety TRAZODONE HCL 50 MG TABS 331937 TRAZODONE HCL Inactive LATUDA 20 MG TABS Take one by mouth daily LATUDA 20 MG TABS LURASIDONE HCL Inactive LISINOPRIL 20 MG TABS 1 tab po qd LISINOPRIL 20 MG TABS 545057 LISINOPRIL Inactive SAPHRIS 10 MG SUBL 1 [...] twice daily BACTRIM DS 800-160 MG TAB 553101 TRIMETHOPRIM-SULFAMETHOXAZOLE Inactive MULTIVITAMINS CAPS Take one by mouth daily MULTIVITAMINS CAPS MULTIPLE VITAMIN Inactive MELATONIN 3 MG CAPS 2 po q hs MELATONIN 3 MG CAPS 044629 MELATONIN Inactive KEFLEX 500 MG ORAL CAPS 1 cap QID by mouth KEFLEX 500 MG ORAL CAPS 768845 CEPHALEXIN Inactive CLINDAMYCIN HCL 150 MG CAPS 1 four times a day CLINDAMYCIN HCL 150 MG CAPS 068512 CLINDAMYCIN HCL Inactive DIFLUCAN 150 MG TAB 1 tablet by mouth daily DIFLUCAN 150 MG TAB 769692 FLUCONAZOLE Inactive PROZAC 20 MG CAP Take one by mouth daily PROZAC 20 MG CAP 385813 FLUOXETINE HCL Inactive IBUPROFEN 600 MG TAB 1 po TID PRN IBUPROFEN 600 MG TAB 981478 IBUPROFEN Inactive VYVANSE 40 MG CAPS 1 daily, VYVANSE 40 MG CAPS LISDEXAMFETAMINE DIMESYLATE Inactive TRAZODONE HCL 100 MG TAB take 1 at bedtime TRAZODONE HCL 100 MG TAB 164858 TRAZODONE HCL Inactive AMITRIPTYLINE HCL 100 MG TAB one at hs AMITRIPTYLINE HCL 100 MG TAB 689576 AMITRIPTYLINE HCL Inactive AMLODIPINE BESYLATE 5 MG TABS 1 tablet by mouth daily AMLODIPINE BESYLATE 5 MG TABS 791986 AMLODIPINE BESYLATE Inactive LATUDA 80 MG TABS Take one by mouth daily LATUDA 80 MG TABS LURASIDONE HCL Inactive SAPHRIS 5 MG SUBL 1 po bid SAPHRIS 5 MG SUBL ASENAPINE MALEATE Inactive PREDNISONE 20 MG TAB 2 tabs daily for 4 days, 1 tab daily for 4 days, 1/2 tab daily for 4 days PREDNISONE 20 MG TAB 520351 PREDNISONE Inactive AMBIEN 5 MG ORAL TABS 1 tab at bedtime AMBIEN 5 MG ORAL TABS 553200 ZOLPIDEM TARTRATE Inactive PROZAC 20 MG ORAL CAPS 1 tab daily PROZAC 20 MG ORAL CAPS 112136 FLUOXETINE HCL Inactive ABILIFY 15 MG ORAL TABS 1 tab daily ABILIFY 15 MG ORAL TABS 146379 ARIPIPRAZOLE Inactive METOPROLOL TARTRATE 50 MG TAB 1 po bid METOPROLOL TARTRATE 50 MG TAB 469088 METOPROLOL TARTRATE Inactive TRAMADOL HCL 50 MG TABS 1-2 po TID PRN Pain TRAMADOL HCL 50 MG TABS 338325 TRAMADOL HCL Inactive PIROXICAM 20 MG CAPS 1 cap po qd PRN Pain PIROXICAM 20 MG CAPS 832291 PIROXICAM Inactive MINIPRESS 2 MG CAPS 4 cap po at night MINIPRESS 2 MG CAPS 260272 PRAZOSIN HCL Inactive MIRALAX PACK 1 po qd PRN Constipation MIRALAX PACK 143845 POLYETHYLENE GLYCOL 3350 Inactive METOPROLOL TARTRATE 25 MG ORAL TABS 1/2 tablet twice daily for heart rate and blood pressure METOPROLOL TARTRATE 25 MG ORAL TABS 382331 METOPROLOL TARTRATE Inactive VALIUM 5 MG TAB Take 1-2 tablets daily VALIUM 5 MG TAB 173614 DIAZEPAM Inactive FLAGYL 500 MG TAB 1 tablet by mouth bid FLAGYL 500 MG TAB 036990 METRONIDAZOLE Inactive DICLOFENAC POTASSIUM TABS Take 1 tablet twice a day (pt. is not sure of the dose.) DICLOFENAC POTASSIUM TABS DICLOFENAC POTASSIUM TABS Inactive ZITHROMAX Z-EARNEST 250 MG TABS 2 today and then 1 daily for 4 days ZITHROMAX Z-EARNEST 250 MG TABS 7957741 AZITHROMYCIN Inactive PREDNISONE 20 MG TABS 2 daily for 5 days then 1 daily for 5 days PREDNISONE 20 MG TABS 391667 PREDNISONE Inactive PROAIR HFA 108 (90 BASE) MCG/ACT AERS 2 puffs four times a day as needed 2015 PROAIR HFA 108 (90 BASE) MCG/ACT AERS ALBUTEROL SULFATE Inactive HYDROCODONE-ACETAMINOPHEN 5-325 MG TABS 1 to 2 four times a day as needed for pain use until can be seen by specialist HYDROCODONE- ACETAMINOPHEN 5-325 MG TABS 261980 HYDROCODONE-ACETAMINOPHEN Inactive TESSALON PERLES 100 MG CAP 1 to 2 tablets by mouth 3 times daily as needed for cough TESSALON PERLES 100 MG CAP 298209 BENZONATATE Inactive CHANTIX STARTING MONTH EARNEST 0.5 [...] Pain 2015 DICLOFENAC SODIUM 50 MG TBEC 703494 DICLOFENAC SODIUM Inactive TOPAMAX 50 MG ORAL TABS 1 tab twice daily TOPAMAX 50 MG ORAL TABS 175927 TOPIRAMATE Inactive VIIBRYD 10 MG ORAL TABS Take 1 tablet once a day VIIBRYD 10 MG ORAL TABS VILAZODONE HCL Inactive LEVOFLOXACIN 500 MG ORAL TABS po daily LEVOFLOXACIN 500 MG ORAL TABS 421827 LEVOFLOXACIN Inactive METHYLPREDNISOLONE 4 MG ORAL TABS po daily METHYLPREDNISOLONE 4 MG ORAL TABS 679743 METHYLPREDNISOLONE Inactive OXYCODONE HCL ER 10 MG ORAL T12A 1/2 tab by mouth every 4 hours prn OXYCODONE HCL ER 10 MG ORAL T12A OXYCODONE HCL Inactive FLAGYL 500 MG TAB 1 tablet by mouth bid FLAGYL 500 MG TAB 591695 METRONIDAZOLE Inactive MONISTAT 7 COMBO PACK WOODROW 100 & 2 MG-% (9GM) VAG KIT 1 applicatorful per vagina q pm x 7 MONISTAT 7 COMBO PACK WOODROW 100 & 2 MG-% (9GM) VAG KIT MICONAZOLE NITRATE Inactive BACTRIM DS 800-160 MG TABS 1 twice a day BACTRIM DS 800-160 MG TABS 679176 SULFAMETHOXAZOLE-TRIMETHOPRIM Inactive TRAMADOL HCL 50 MG TABS 1/2-1 tab TID PRN TRAMADOL HCL 50 MG TABS 276212 TRAMADOL HCL Inactive ABILIFY MAINTENA 400 MG IM SUSR 400mg injection every 26 days ABILIFY MAINTENA 400 MG IM SUSR ARIPIPRAZOLE Inactive KLONOPIN 1 MG ORAL TABS 1 tab po TID KLONOPIN 1 MG ORAL TABS 321011 CLONAZEPAM Inactive ADVAIR DISKUS 250-50 MCG/DOSE INH AEPB 1 puff twice a day for asthma ADVAIR DISKUS 250-50 MCG/DOSE INH AEPB FLUTICASONE- SALMETEROL Inactive BENADRYL 25 MG CAP 4 po at bedtime for insomnia BENADRYL 25 MG CAP DIPHENHYDRAMINE HCL Inactive PREDNISONE 20 MG TABS 2 daily for 5 days then 1 daily for 5 days PREDNISONE 20 MG TABS 595284 PREDNISONE Inactive HYDROCODONE-ACETAMINOPHEN 5-325 MG ORAL TABS 1 tab two times a day HYDROCODONE-ACETAMINOPHEN 5-325 MG ORAL TABS 608642 HYDROCODONE-ACETAMINOPHEN Inactive ZITHROMAX Z-EARNEST 250 MG TABS 2 today and then 1 daily for 4 days ZITHROMAX Z-EARNEST 250 MG TABS 4146496 AZITHROMYCIN Inactive GUAIFENESIN-CODEINE 100-10 MG/5ML SYRP 5ml every 4 to 6 hours as needed for cough GUAIFENESIN-CODEINE 100-10 MG/5ML SYRP 417770 GUAIFENESIN-CODEINE Inactive HALOPERIDOL 10 MG ORAL TABS 1 tab q.d HALOPERIDOL 10 MG ORAL TABS 863685 HALOPERIDOL Inactive ASPIRIN 325 MG ORAL TABS 1 tab q.d ASPIRIN 325 MG ORAL TABS 668642 ASPIRIN Inactive FLUTICASONE PROPIONATE 50 MCG/ACT SUSP 2 sprays each nostril daily before bed. FLUTICASONE PROPIONATE 50 MCG/ACT SUSP 9697862 FLUTICASONE PROPIONATE Inactive ZOFRAN 4 MG TABS 1 po q6hr PRN Nausea ZOFRAN 4 MG TABS 525664 ONDANSETRON HCL Inactive KEFLEX 500 MG CAP 1 po qid KEFLEX 500 MG CAP 436767 CEPHALEXIN Inactive ACETAMINOPHEN-CODEINE 120-12 MG/5ML SOLN 5 ml by mouth every 4-6 hours if needed for cough ACETAMINOPHEN-CODEINE 120-12 MG/5ML SOLN 435622 ACETAMINOPHEN-CODEINE Inactive PREDNISONE 20 MG TAB 1 tablet daily x 4 days PREDNISONE 20 MG TAB 626434 PREDNISONE Inactive TROPICAMIDE 0.5 % OPHTH SOLN 1 drop PRN eye spasms TROPICAMIDE 0.5 % [facility] 904339 TROPICAMIDE Inactive LEVAQUIN 500 MG TABS 1 daily for infection LEVAQUIN 500 MG TABS 515272 LEVOFLOXACIN Inactive PREDNISONE 10 MG TABS 2 daily for 5 days then 1 daily for 5 days PREDNISONE 10 MG TABS 135973 PREDNISONE Inactive EQ NICOTINE 21 MG/24HR TRANS [...] for cough TESSALON PERLES 100 MG CAPS 330925 BENZONATATE Inactive CEFDINIR 300 MG CAPS by mouth twice a day CEFDINIR 300 MG CAPS 969264 CEFDINIR Inactive PREDNISONE 20 MG TAB 2 tabs daily for 3 days, 1 tab daily for 3 days, 1/2 tab daily for 2 days PREDNISONE 20 MG TAB 915442 PREDNISONE Inactive BACTRIM DS 800-160 MG TABS [...] x 10 days KEFLEX 500 MG CAP 285331 CEPHALEXIN Inactive Advance Directives Directive Description Start [...] pressure, diastolic - 8462-4 86 mm[Hg] BP mcanlly blood pressure, systolic - 8480-6 142 mm[Hg] [...] % 11.0-15.0 platelet count 443 THOUSAND/UL 10*3/mm3 101-721 9405/03/01 mean platelet volume 8.2 fL 7.5-12.5 leukocyte [...] % 11.0-15.0 platelet count 349 THOUSAND/UL 10*3/mm3 712-538 5654/04/12 mean platelet volume 8.4 fL 7.5-12.5 Lab [...] 369 10^3/MM^3 10*3/mm3 142-424 Lab Report: Chlamydia/GC APTIMA/[id number] - Lab chlamydia DNA probe NOT DETECTED NOT DETECTED Lab Report: Chlamydia/GC APTIMA/[id number] - Microbiology Neisseria gonorrhoeae DNA probe NOT DETECTED NOT DETECTED Lab Report: Chlamydia/GC APTIMA/[id number], Urinalysis, Complete, with Reflex ... - Lab chlamydia DNA probe NOT DETECTED NOT DETECTED Lab Report: Chlamydia/GC APTIMA/[id number], Urinalysis, Complete, with Reflex ... - Microbiology Neisseria gonorrhoeae DNA probe NOT DETECTED NOT DETECTED Lab Report: Chlamydia/GC APTIMA/[id number], Urinalysis, Complete, with Reflex ... - Urinalysis microalbumin/total urine volume 2 mg/L Units converted. See lab report for original value. microalbumin/creatinine ratio, urine 9 MCG/MG CREAT mg/L <30 Lab Report: Comp. Metabolic Panel - Chemistry sodium, serum 142 mmol/L 084-695 7956/06/08 carbon dioxide, venous blood 27.6 mmol/L 21.0-32.0 potassium, serum 4.0 mmol/L 3.5-5.2 chloride, serum 105 mmol/L 98-107 blood glucose 95 mg/dL 65-110 urea nitrogen, blood 8 mg/dL 7-18 creatinine, serum 0.75 mg/dL 0.55-1.30 alanine aminotransferase (SGPT), serum 49 U/L 12-78 aspartate aminotransferase (SGOT), serum 28 U/L 15-37 calcium, serum 9.4 mg/dL 8.5-10.1 bilirubin, serum, total 0.30 mg/dL 0.00-1.00 sodium, serum 140 mmol/L 136-650 3234/08/08 carbon dioxide, venous blood 33.7 mmol/L 21.0-32.0 [...] mg/dL Encounters Code Encounter Date Provider Facility CPT-14936 Level 3 Est. Patient 10:00:25 CDT Suzan Boo [facility] CPT-13741 Level 3 Est. Patient 10:29:30 CDT Suzan Boo [facility] CPT-66848 Level 3 Est. Patient 11:04:38 CDT Renzo Thornton [facility] CPT-70986 Level 3 Est. Patient 11:15:58 SALES ADVISOR Renzo Thornton [facility] CPT-26522 Level 3 Est. Patient 15:28:23 SALES ADVISOR Suzan Boo [facility] CPT-41333 Level 4 Est. Patient 10:20:54 SALES ADVISOR Suzan Boo [facility] CPT-59391 Level 3 Est. Patient 11:47:37 SALES ADVISOR Ahmet Carbajal MD [facility] CPT-02574 Level 3 Est. Patient 10:40:11 SALES ADVISOR Ahmet Carbajal MD [facility] CPT-16160 Level 3 Est. Patient 15:07:06 SALES ADVISOR Neeraj Collins MD [facility] CPT-79849 Level 4 Est. Patient 14:45:00 SALES ADVISOR Ahmet Carbajal MD [facility] CPT-14141 Level 3 Est. Patient 13:59:59 CDT Luigi Martínez [facility] CPT-94652 Level 3 Est. Patient 18:18:53 CDT Neeraj Collins MD [facility] CPT-19771 Level 3 Est. Patient 15:50:44 CDT Vishal Hui MD [facility] CPT-36244 Level 3 Est. Patient 11:36:17 CDT Ahmet Carbajal MD [facility] CPT-93213 Level 3 Est. Patient 13:29:16 CDT Vishal Hui MD [facility] CPT-05732 Level 3 Est. Patient 14:27:52 CDT Neeraj Collins MD [facility] CPT-24157 Level 3 Est. Patient 08:56:03 CDT Luigi Martínez [facility] CPT-96625 Level 4 Est. Patient 12:11:48 CDT Fabiola Johnson [facility] CPT-07121 Level 3 New Patient 16:53:37 CDT Albert Caldera MD [facility] CPT-48502 Level 3 Est. Patient 11:25:49 CDT Renzo Thornton DO [facility] CPT-07225 Level 3 Est. Patient 15:22:01 CDT Ahmet Carbajal MD [facility] CPT-74289 Level 4 Est. Patient 09:00:51 SALES ADVISOR Vishal Hui MD [facility] CPT-39041 Level 3 Est. Patient 11:37:33 SALES ADVISOR Vishal Hui MD [facility] CPT-47270 Level 3 Est. Patient 08:41:09 SALES ADVISOR Vishal Hui MD [facility] CPT-10915 Level 4 Est. Patient 10:19:35 SALES ADVISOR Vishal Hui MD [facility] CPT-49039 Level 3 Est. Patient 13:35:45 CDT Vishal Hui MD [facility] CPT-18636 Level 4 Est. Patient 10:08:37 CDT Vishal Hui MD [facility]-76203 Level 3 Est. Patient 11:22:10 CDT Vishal Hui MD [facility] CPT-85079 Level 3 Est. Patient 11:03:32 CDT Sahara Rodriguez MD [facility]-34334 Level 3 Est. Patient 09:41:35 CDT Vishal Hui MD [facility] CPT-13200 Level 3 Est. Patient 12:00:41 CDT Neeraj Collins MD [facility]-16082 Level 3 Est. Patient 09:16:24 CDT Vishal Hui MD [facility] CPT-50533 Level 4 Est. Patient 13:59:09 CDT Neeraj Collins MD [facility] CPT-51265 Level 3 Est. Patient 15:19:43 CDT Renzo Thornton DO [facility] CPT-78780 Level 3 Est. Patient 18:10:26 CDT Sahara Rodriguez MD [facility]-08114 Level 3 Est. Patient 14:49:50 CDT Vishal Hui MD [facility] CPT-52212 Level 4 Est. Patient 18:41:46 CDT Neeraj Collins MD [facility] CPT-66673 Level 4 Est. Patient 09:18:38 SALES ADVISOR Vishal Hui MD [facility] CPT-79300 Level 3 Est. Patient 14:43:55 SALES ADVISOR Vishal Hui MD [facility] CPT-93810 Level 3 Est. Patient 15:26:33 SALES ADVISOR Sahara Rodriguez MD [facility]-84565 Level 3 Est. Patient 10:32:14 SALES ADVISOR Vishal Hui MD [facility] CPT-26033 Level 3 Est. Patient 15:12:52 SALES ADVISOR Vishal Hui MD [facility] CPT-30658 Level 4 Est. Patient 09:19:27 CDT Vishal Hui MD [facility] CPT-63947 Level 3 Est. Patient 15:53:00 CDT Renzo Thornton [facility] CPT-70847 Level 3 Est. Patient 15:50:30 CDT Renzo Thornton [facility] CPT-26631 Level 3 Est. Patient 16:55:24 CDT Vishal Hui MD [facility] Procedures Code Procedure Name Date Entry Date Standard Description CPT-66153 Venipuncture Draw Fee 08:41:12 CDT CPT-96187 Abd compl w upright - XRAY USE ONLY 10:27:59 CDT 06/28 CPT-92073 Smoking Cessation counseling 11:15:58 SALES ADVISOR CPT-G0439 [facility] Annual Wellness Exam 09:30:58 SALES ADVISOR CPT-92100 TSH - LAB USE ONLY 08:50:26 SALES ADVISOR CPT-92906 CBC - LAB USE ONLY 08:50:26 SALES ADVISOR CPT-53058 Venipuncture Draw Fee 08:50:26 SALES ADVISOR CPT-73885 Abx/Therapy Injection 17:34:30 SALES ADVISOR CPT-94864 Nexplanon Removal with Reinsertion 14:09:32 CDT CPT-J7307 Nexplanon (Implant) 14:09:32 CDT CPT-OV Office Visit 14:09:32 CDT CPT-77690 UA w micro - LAB USE ONLY 16:21:13 CDT CPT-23636 Wet Mount - LAB USE ONLY 16:21:13 CDT CPT-79615 First Vx - Ix admin for Medicare patients 14:37:47 CDT CPT-20762 Fluzone Preservative Free Intramuscular Suspension 14:37 :47 CDT CPT-37591 Abx/Therapy Injection 13:54:22 CDT CPT-21093 Abx/Therapy Injection 08:47:09 CDT CPT-88967 Abx/Therapy Injection 13:29:56 CDT CPT-78817 Abx/Therapy Injection 08:36:16 CDT CPT-24748 Wet Mount - LAB USE ONLY 17:44:58 CDT CPT-41525 UA w micro - LAB USE ONLY 17:44:58 CDT CPT-56150 CMP - LAB USE ONLY 17:44:58 CDT CPT-85097 Venipuncture Draw Fee 17:44:58 CDT CPT-28608 Cervical Min 4V - XRAY USE ONLY 09:01:40 CDT CPT-40918 Chest 2V Frontal and Lat - XRAY USE ONLY 11:06:31 CDT CPT-05462 EKG Trac and Interp - XRAY USE ONLY 11:31:43 CDT 08/26 CPT-J3420 Vitamin B12 1000mcg (Cyanocobalamin) 08:10:26 SALES ADVISOR 04/12 CPT-82091 Abx/Therapy Injection 08:10:26 SALES ADVISOR CPT-G0438 Initial Annual Wellness Exam 19:01:01 SALES ADVISOR CPT-J3420 Vitamin B12 1000mcg (Cyanocobalamin) 16:57:46 CDT 08/14 CPT-69899 Recombivax HB Injection Suspension 5 MCG/0.5ML 08:37:50 SALES ADVISOR CPT-82905 Immunization Single Admin 08:37:50 SALES ADVISOR CPT-J3420 Vitamin B12 1000mcg (Cyanocobalamin) 08:32:16 SALES ADVISOR 03/11 CPT-48245 Abx/Therapy Injection 08:32:16 SALES ADVISOR CPT-87914 Chest 2V Frontal and Lat 11:46:38 SALES ADVISOR CPT-47821 Venipuncture Draw Fee 09:12:45 SALES ADVISOR CPT-J3420 Vitamin B12 1000mcg (Cyanocobalamin) 08:50:15 SALES ADVISOR 02/08 CPT-13806 Abx/Therapy Injection 08:50:15 SALES ADVISOR CPT-Cryo Cryotherapy 10:19:35 SALES ADVISOR CPT-000 Give Appropriate Flu Vaccine 09:22:16 CDT CPT-J3420 Vitamin B12 1000mcg (Cyanocobalamin) 19:08:57 CDT 01/11 CPT-54846 Abx/Therapy Injection 19:08:57 CDT CPT-J3420 Vitamin B12 1000mcg (Cyanocobalamin) 08:19:08 CDT 12/11 CPT-11938 Abx/Therapy Injection 08:19:08 CDT CPT-J3420 Vitamin B12 1000mcg (Cyanocobalamin) 14:48:00 CDT 11/09 CPT-14223 Abx/Therapy Injection 14:47:59 CDT CPT-J3420 Vitamin B12 1000mcg (Cyanocobalamin) 08:34:04 CDT 10/09 CPT-18732 Abx/Therapy Injection 08:34:04 CDT CPT-J3420 Vitamin B12 1000mcg (Cyanocobalamin) 09:18:52 CDT 09/11 CPT-86733 Abx/Therapy Injection 09:18:52 CDT CPT-J3420 Vitamin B12 1000mcg (Cyanocobalamin) 08:35:44 CDT 09/04 CPT-35877 Abx/Therapy Injection 08:35:44 CDT CPT-10529 Immunization Single Admin 11:07:16 CDT CPT-18660 Hepatitis B adult IM 11:07:16 CDT CPT-J3420 Vitamin B12 1000mcg (Cyanocobalamin) 11:00:49 CDT 08/28 CPT-J1040 Depo Medrol 80 mg (Methyl Prednisolone Acetate) 11:00: 49 CDT CPT-17123 Abx/Therapy Injection 11:00:49 CDT CPT-J1040 Depo Medrol 80 mg (Methyl Prednisolone Acetate) 09:16: 23 CDT CPT-J3420 Vitamin B12 1000mcg (Cyanocobalamin) 08:27:05 CDT 08/20 CPT-59748 Abx/Therapy Injection 08:27:05 CDT CPT-66546 Recombivax HB Injection Suspension 5 MCG/0.5ML 10:00:41 CDT CPT-60973 Administration single or combination vaccine inc oral 10 :00:41 CDT CPT-84863 Sono transvag pelvis non OB uterus ovaries cervix 16:36: 57 CDT CPT-99645 LS spine comp w obliq 09:50:55 SALES ADVISOR CPT-64089 Abd compl w upright 09:50:55 SALES ADVISOR CPT-J1100 Decadron 4mg (Dexamethasone) 15:51:24 SALES ADVISOR CPT-J1030 Depo Medrol 40 mg (Methyl Prednisolone Acetate) 15:51: 24 SALES ADVISOR CPT-16213 Abx/Therapy Injection 15:51:24 SALES ADVISOR CPT-J1100 Decadron 4mg (Dexamethasone) 15:26:33 SALES ADVISOR CPT-J1030 Depo Medrol 40 mg (Methyl Prednisolone Acetate) 15:26: 33 SALES ADVISOR CPT-20361 Sono retroperitoneal complete kidneys and bladder 17:15: 30 CDT CPT-48524 Abd compl w upright 16:09:25 CDT CPT-J1100 Decadron 8mg (Dexamethasone) 17:07:57 CDT CPT-16266 Abx/Therapy Injection 17:07:57 CDT CPT-J1100 Decadron 8mg (Dexamethasone) 16:55:24 CDT CPT-79352 Chest 2V Frontal and Lat 16:32:44 CDT
--- OUTSIDE RECORDS SUMMARY | 2016-11-04 20:10 | XMS REPORT | Clinical Summary ---
Author Author Admin, [facility] Organization [employer] Address Unknown Phone Unavailable Allergies, Adverse Reactions, [...] sites Morbid obesity 278.01 Active Juliet Kimbrough ELECTRONIC DEVICE MONITOR Morbid obesity 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 Active Juliet Kimbrough ELECTRONIC DEVICE MONITOR Dependence on other enabling machines and devices [...] Ahmet Carbajal MD Generalized anxiety disorder Manager Beauty well woman exam V72.31 Resolved Suzan Boo [...] Vishal Hui MD Nocturnal hypoxia ICD-799.02 Inactive Suzna Boo APRN Neck pain ICD-723.1 Inactive Vishal [...] Boo APRN DYSURIA ICD-788.1 Inactive Suzan Boo ELECTRONIC DEVICE MONITOR Cellulitis and abscess of breast ICD-611.0 Inactive Ahmet Carbajal MD Nondisplaced transverse fracture of shaft of left fibula, subsequent encounter for closed fracture with routine healing Inactive Suzan Boo ELECTRONIC DEVICE MONITOR Bronchitis, acute ICD-466.0 Inactive Ahmet Carbajal MD Manager Beauty well woman exam ICD-V72.31 Inactive Suzan Boo ELECTRONIC DEVICE MONITOR Bronchitis, acute with mild bronchospasm ICD-466.0 Inactive Suzan Boo ELECTRONIC DEVICE MONITOR Tracheitis ICD-464.10 Inactive Suzan Boo APRN Impetigo ICD-684 Inactive Suzan Boo ELECTRONIC DEVICE MONITOR Furuncle of buttock ICD-680.5 Inactive Suzan Boo APRN Vaginal irritation ICD-623.9 Inactive uSzan Boo APRN Scalding pain on urination ICD-788.1 Inactive Suzan Boo APRN Abdominal pain, right upper quadrant ICD-789.01 Inactive Suzan Boo APRN Dark urine ICD-791.9 Inactive Suzan Boo APRN Preop exam ICD-V72.84 Inactive Suzan Boo APRN Medication List Medication Instructions Start Date Stop Date Generic Name NDC Status Provider Patient Instruction MUPIROCIN 2 % OINT apply twice a day MUPIROCIN 85190859785 Active Suzan Boo APRN Active BACTRIM DS 800-160 MG TABS 1 twice a day SULFAMETHOXAZOLE- TRIMETHOPRIM 12242187439 Active Suzan Boo APRN Active [id number] 50-325-40 MG TABS 1 to 2 four times a day as needed for headache [id number] 32181371689 Active Suzan Boo APRN Active METOCLOPRAMIDE HCL 10 MG TABS 1 two times as needed for nausea and headaches METOCLOPRAMIDE HCL 52139317283 Active Meena Ortiz MA Active NYSTATIN 031966 UNIT/GM CREA apply three times a day to yeast rash NYSTATIN 17156600404 Active Suzan Boo APRN Active AMITIZA 24 MCG ORAL CAPS one capsule twice daily LUBIPROSTONE 27757327222 Active Suzan Boo APRN Active MIRALAX ORAL POWD 17GMS DAILY IN WATER POLYETHYLENE GLYCOL 3350 05888472151 No Longer Active Suzan Boo APRN Active LACTULOSE 10 GM/15ML ORAL SOLN 30mL oral BID for IBS-C LACTULOSE 18409300773 No Longer Active Suzan Boo APRN Active BACTRIM DS 800-160 MG TAB Take one (1) tablet by mouth twice a day for 5 days TRIMETHOPRIM-SULFAMETHOXAZOLE 73849989096 No Longer Active Suzan Boo APRN Active MUPIROCIN 2 % OINT apply twice a day MUPIROCIN 91581098065 No Longer Active Suzan Boo APRN Active BACTRIM DS 800-160 MG TABS 1 twice a day SULFAMETHOXAZOLE-TRIMETHOPRIM 45778056855 No Longer Active Suzan Boo APRN Active DIFLUCAN 150 MG TABS 1 by mouth for yeast FLUCONAZOLE 68191536026 No Longer Active Suzan Boo APRN Active LINZESS 290 MCG ORAL CAPS 1 tab 30 min prior to first meal each day. LINACLOTIDE 39998475073 No Longer Active Sheila Calderon LPN Active AMITIZA 8 MCG ORAL CAPS 1 tab BID LUBIPROSTONE 95555404198 No Longer Active Lynda Xiao WASTEWATER SUPERVISOR Active TESSALON PERLES 100 MG CAPS 1 three times a day as needed for cough BENZONATATE 07893638507 No Longer Active Suzan Boo APRN Active BACTRIM DS 800-160 MG TABS 1 twice a day SULFAMETHOXAZOLE-TRIMETHOPRIM 26348100891 No Longer Active Suzan Boo APRN Active DIFLUCAN 150 MG TABS 1 by mouth for yeast FLUCONAZOLE 76508019311 No Longer Active Suzan Boo APRN Active EQ NICOTINE 21 MG/24HR TRANS PT24 Apply daily to stop smoking NICOTINE 03390426135 No Longer Active Suzan Boo APRN Active PREDNISONE 10 MG TABS 2 daily for 5 days then 1 daily for 5 days PREDNISONE 17193507351 No Longer Active Suzan Boo APRN Active LEVAQUIN 500 MG TABS 1 daily for infection LEVOFLOXACIN 92999433850 No Longer Active Suzan Boo APRN Active TROPICAMIDE 0.5 % OPHTH SOLN 1 drop PRN eye spasms TROPICAMIDE 81618180227 No Longer Active Suzan Boo APRN Active PREDNISONE 20 MG TAB 1 tablet daily x 4 days PREDNISONE 26742258697 No Longer Active Suzan Boo APRN Active ACETAMINOPHEN-CODEINE 120-12 MG/5ML SOLN 5 ml by mouth every 4-6 hours if needed for cough ACETAMINOPHEN-CODEINE 55405129692 No Longer Active Suzan Boo APRN Active KEFLEX 500 MG CAP 1 po qid CEPHALEXIN 62995786437 No Longer Active Suzan oBo APRN Active FLOVENT HFA 110 MCG/ACT AERO 2 puffs inhaled b.i.d. FLUTICASONE PROPIONATE HFA 35371741473 Active Renzo Barajas Norberto FONSECA Active RISPERDAL 4 MG ORAL TABS 1 tab at bedtime RISPERIDONE 60292498005 Active Samantha Rothman RMA Active ZOFRAN 4 MG TABS 1 po q6hr PRN Nausea ONDANSETRON HCL No Longer Active Suzan Boo APRN Active FLUTICASONE PROPIONATE 50 MCG/ACT SUSP 2 sprays each nostril daily before bed. FLUTICASONE PROPIONATE 06941086157 No Longer Active Suzan Boo APRN Active ASPIRIN 325 MG ORAL TABS 1 tab q.d ASPIRIN 58563879202 No Longer Active Suzan Boo APRN Active HALOPERIDOL 10 MG ORAL TABS 1 tab q.d HALOPERIDOL 52645959539 No Longer Active Suzan Boo APRN Active GUAIFENESIN-CODEINE 100-10 MG/5ML SYRP 5ml every 4 to 6 hours as needed for cough GUAIFENESIN-CODEINE 06184261152 No Longer Active Suzan Boo APRN Active ZITHROMAX Z-EARNEST 250 MG TABS 2 today and then 1 daily for 4 days AZITHROMYCIN 23087850914 No Longer Active Suzan Boo APRN Active CLONAZEPAM 1 MG ORAL TABS 1 twice a day and an additional 1 tablet every other day as needed for pseudoseizures or anxiety CLONAZEPAM 03400394717 Active Suzan Boo APRN Active HYDROCODONE-ACETAMINOPHEN 5-325 MG ORAL TABS 1 tab two times a day HYDROCODONE-ACETAMINOPHEN 12818246464 No Longer Active Ahmet Carbajal MD Active LAMICTAL 100 MG ORAL TABS 1 tab 2 times qd. LAMOTRIGINE 94129613504 Active Ahmet Carbajal MD Active PREDNISONE 20 MG TABS 2 daily for 5 days then 1 daily for 5 days PREDNISONE 20982217884 No Longer Active Ahmet Carbajal MD Active FLUTICASONE PROPIONATE 50 MCG/ACT SUSP 1 to 2 sprays each nostril daily for allergies FLUTICASONE PROPIONATE 21018870802 Active Tila Nicolas Active BENADRYL 25 MG CAP 4 po at bedtime for insomnia DIPHENHYDRAMINE HCL 75991930934 No Longer Active Ahmet Carbajal MD Active ADVAIR DISKUS 250-50 MCG/DOSE INH AEPB 1 puff twice a day for asthma FLUTICASONE-SALMETEROL 50500451982 No Longer Active Ahmet Carbajal MD Active KLONOPIN 1 MG ORAL TABS 1 tab po TID CLONAZEPAM 47403633555 No Longer Active Ahmet Carbajal MD Active ABILIFY MAINTENA 400 MG IM SUSR 400mg injection every 26 days ARIPIPRAZOLE 83743773867 No Longer Active Ahmet Carbajal MD Active TRAMADOL HCL 50 MG TABS 1/2-1 tab TID PRN TRAMADOL HCL 81822680515 No Longer Active Ahmet Carbajal MD Active BACTRIM DS 800-160 MG TABS 1 twice a day SULFAMETHOXAZOLE- TRIMETHOPRIM 66124886013 No Longer Active Ahmet Carbajal MD Active PROAIR HFA 108 (90 BASE) MCG/ACT AERS 2 puffs four times a day as needed 2015 ALBUTEROL SULFATE 36330984287 Active Honey Hinton ELECTRONIC DEVICE MONITOR Active MONISTAT 7 COMBO PACK WOODROW 100 & 2 MG-% (9GM) VAG KIT 1 applicatorful per vagina q pm x 7 MICONAZOLE NITRATE 13426553174 No Longer Active Ahmet Carbajal MD Active FLAGYL 500 MG TAB 1 tablet by mouth bid METRONIDAZOLE 89063605294 No Longer Active Ahmet Carbajal MD Active OXYCODONE HCL ER 10 MG ORAL T12A 1/2 tab by mouth every 4 hours prn OXYCODONE HCL 55779628106 No Longer Active Ahmet Carbajal MD Active METHYLPREDNISOLONE 4 MG ORAL TABS po daily METHYLPREDNISOLONE 35304257614 No Longer Active Ahmet Carbajal MD Active LEVOFLOXACIN 500 MG ORAL TABS po daily LEVOFLOXACIN 28240376772 No Longer Active Ahmet Carbajal MD Active VIIBRYD 10 MG ORAL TABS Take 1 tablet once a day VILAZODONE HCL 82798827330 No Longer Active Ahmet Carbajal MD Active TOPAMAX 50 MG ORAL TABS 1 tab twice daily TOPIRAMATE 76248440868 No Longer Active Ahmet Carbajal MD Active DICLOFENAC SODIUM 50 MG TBEC 1 tablet by mouth four times daily PRN Pain 2015 DICLOFENAC SODIUM 82289468628 No Longer Active Ahmet Carbajal MD Active ADZENYS XR-ODT 6.3 MG ORAL TBED 1 tab po daily for ADHD AMPHETAMINE 25838574481 No Longer Active Ahmet Carbajal MD Active CHANTIX 1 MG TABS 1 twice a day to help quit smoking VARENICLINE TARTRATE 83241641661 No Longer Active Dipika Burgos MD Active CHANTIX STARTING MONTH EARNEST 0.5 MG X 11 & 1 MG X 42 TABS take as directed 2015 VARENICLINE TARTRATE 88494082947 No Longer Active Dipika Burgos MD Active TESSALON PERLES 100 MG CAP 1 to 2 tablets by mouth 3 times daily as needed for cough BENZONATATE 96043600600 No Longer Active Luigi Martínez APRN Active IMITREX 50 MG ORAL TABS 0.5 po x 1 PRN Headache. May repeat dose x 1 in 2 hours if needed SUMATRIPTAN SUCCINATE 77495735853 Active TAMARA Casey Active HYDROCODONE-ACETAMINOPHEN 5-325 MG TABS 1 to 2 four times a day as needed for pain use until can be seen by specialist HYDROCODONE- ACETAMINOPHEN 43476462340 No Longer Active Vishal Hui MD Active PROAIR HFA 108 (90 BASE) MCG/ACT AERS 2 puffs four times a day as needed 2015 ALBUTEROL SULFATE 61460145171 No Longer Active Vishal Hui MD Active PREDNISONE 20 MG TABS 2 daily for 5 days then 1 daily for 5 days PREDNISONE 26436952326 No Longer Active Vishal Hui MD Active ZITHROMAX Z-EARNEST 250 MG TABS 2 today and then 1 daily for 4 days AZITHROMYCIN 99634510879 No Longer Active Vishal Hui MD Active DICLOFENAC POTASSIUM TABS Take 1 tablet twice a day (pt. is not sure of the dose.) DICLOFENAC POTASSIUM TABS 49829332427 No Longer Active Vishal Hui MD Active VERAPAMIL HCL ER 120 MG ORAL CR-TABS Take 1 tablet by mouth twice a day. VERAPAMIL HCL 99849483184 Active Vishal Hui MD Active FLAGYL 500 MG TAB 1 tablet by mouth bid METRONIDAZOLE 61909625670 No Longer Active Vishal Hui MD Active VALIUM 5 MG TAB Take 1-2 tablets daily DIAZEPAM 40659766557 No Longer Active Fabiola Johnson APRN Active METOPROLOL TARTRATE 25 MG ORAL TABS 1/2 tablet twice daily for heart rate and blood pressure METOPROLOL TARTRATE 52168644099 No Longer Active Fabiola Johnson APRN Active MIRALAX PACK 1 po qd PRN Constipation POLYETHYLENE GLYCOL 3350 37955922229 No Longer Active Ahmet Carbajal MD Active MINIPRESS 2 MG CAPS 4 cap po at night PRAZOSIN HCL 75847176114 No Longer Active Ahmet Carbajal MD Active PIROXICAM 20 MG CAPS 1 cap po qd PRN Pain PIROXICAM 38490672162 No Longer Active Ahmet Carbajal MD Active TRAMADOL HCL 50 MG TABS 1-2 po TID PRN Pain TRAMADOL HCL 85589571515 No Longer Active Ahmet Carbajal MD Active METOPROLOL TARTRATE 50 MG TAB 1 po bid METOPROLOL TARTRATE 94675362429 No Longer Active Ahmet Carbajal MD Active ABILIFY 15 MG ORAL TABS 1 tab daily ARIPIPRAZOLE 24642380858 No Longer Active Ahmet Carbajal MD Active PROZAC 20 MG ORAL CAPS 1 tab daily FLUOXETINE HCL 90321760883 No Longer Active Ahmet Carbajal MD Active AMBIEN 5 MG ORAL TABS 1 tab at bedtime ZOLPIDEM TARTRATE 67292027743 No Longer Active Ahmet Carbajal MD Active PREDNISONE 20 MG TAB 2 tabs daily for 4 days, 1 tab daily for 4 days, 1/2 tab daily for 4 days PREDNISONE 90498357663 No Longer Active Ahmet Carbajal MD Active KEFLEX 500 MG CAP 1 po TID x 10 days CEPHALEXIN 34939297037 No Longer Active Vishal Hui MD Active SAPHRIS 5 MG SUBL 1 po bid ASENAPINE MALEATE 90450056974 No Longer Active Jillina Frazell ELECTRONIC DEVICE MONITOR Active LATUDA 80 MG TABS Take one by mouth daily LURASIDONE HCL 52547094220 No Longer Active Jillina Frazell ELECTRONIC DEVICE MONITOR Active AMLODIPINE BESYLATE 5 MG TABS 1 tablet by mouth daily AMLODIPINE BESYLATE 83449799174 No Longer Active Jillina Frazell ELECTRONIC DEVICE MONITOR Active AMITRIPTYLINE HCL 100 MG TAB one at hs AMITRIPTYLINE HCL 24316300974 No Longer Active Vishal Hui MD Active TRAZODONE HCL 100 MG TAB take 1 at bedtime TRAZODONE HCL 67541505461 No Longer Active Vishal Hui MD Active VYVANSE 40 MG CAPS 1 daily, LISDEXAMFETAMINE DIMESYLATE 00648252577 No Longer Active Vishal Hui MD Active IBUPROFEN 600 MG TAB 1 po TID PRN IBUPROFEN 32461846160 No Longer Active Vishal Hui MD Active PROZAC 20 MG CAP Take one by mouth daily FLUOXETINE HCL 27577527290 No Longer Active Vishal Hui MD Active BACTRIM DS 800-160 MG TABS 1 pill by mouth twice daily SULFAMETHOXAZOLE-TRIMETHOPRIM 24786008466 No Longer Active Sahara Rodriguez MD PhD Active DIFLUCAN 150 MG TAB 1 tablet by mouth daily FLUCONAZOLE 23667733794 No Longer Active Vishal Hui MD Active TIZANIDINE HCL 4 MG TABS 1 po q6hr PRN Muscle Spasm/Back Pain TIZANIDINE HCL 18892566180 Active TAMARA Casey Active CLINDAMYCIN HCL 150 MG CAPS 1 four times a day CLINDAMYCIN HCL 59128739224 No Longer Active Neeraj Collins MD Active KEFLEX 500 MG ORAL CAPS 1 cap QID by mouth CEPHALEXIN 38028882070 No Longer Active Neeraj Collins MD Active DIFLUCAN 150 MG TABS 1 pill every other day x 2 doses FLUCONAZOLE 83516819539 No Longer Active Sahara Rodriguez MD PhD Active MELATONIN 3 MG CAPS 2 po q hs MELATONIN 50550863458 No Longer Active Sahara Rodriguez MD PhD Active MULTIVITAMINS CAPS Take one by mouth daily MULTIPLE VITAMIN 97563860168 No Longer Active Sahara Rodriguez MD PhD Active BACTRIM DS 800-160 MG TAB 1 tab by mouth twice daily TRIMETHOPRIM-SULFAMETHOXAZOLE 38195244225 No Longer Active Sahara Rodriguez MD PhD Active [facility] PROBIOTIC ORAL CHEW 2 daily po PROBIOTIC PRODUCT 27907640279 No Longer Active Sahara Rodriguez MD PhD Active BACTRIM DS 800-160 MG TABS 1 po BID x 7 days SULFAMETHOXAZOLE-TRIMETHOPRIM 42178643134 No Longer Active Vishal Hui MD Active CHANTIX STARTING MONTH EARNEST 0.5 MG X 11 & 1 MG X 42 TABS 0.5mg daily for 3 days , then 0.5mg BID for 4 days, then 1mg BID VARENICLINE TARTRATE 56888604218 No Longer Active Lisette Scarrow, RMA Active VERAPAMIL HCL CR 120 MG TAB CR 1 po bid VERAPAMIL HCL 63486692803 No Longer Active Vishal Hui MD Active METOPROLOL SUCCINATE 50 MG TB24 1 tablet by mouth daily METOPROLOL SUCCINATE 23336031401 No Longer Active Vishal Hui MD Active SAPHRIS 10 MG SUBL 1 tab po bid ASENAPINE MALEATE 77932070410 No Longer Active Vishal Hui MD Active LISINOPRIL 20 MG TABS 1 tab po qd LISINOPRIL 52957708055 No Longer Active Vishal Hui MD Active LATUDA 20 MG TABS Take one by mouth daily LURASIDONE HCL 56940212409 No Longer Active Vishal Hui MD Active TRAZODONE HCL 50 MG TABS 1/2 tab po qd prn for anxiety TRAZODONE HCL 74806757959 No Longer Active Vishal Hui MD Active OMEPRAZOLE 20 MG TBEC 1 po q a.m. 30min prior to first food intake OMEPRAZOLE 70595485017 Active TAMARA Casey Active RANITIDINE HCL 150 MG CAPS 1 twice a day RANITIDINE HCL 96624548797 Active Lynda Xiao LPN Active LINZESS 290 MCG CAPS Take one by mouth daily LINACLOTIDE 29518981232 No Longer Active Vishal Hui MD Active SAPHRIS 5 MG SUBL 1 tab po qd ASENAPINE MALEATE 81885474667 No Longer Active Vishal Hui MD Active ZALEPLON 10 MG CAPS 1 cap po every other night ZALEPLON 92476974899 No Longer Active Vishal Hui MD Active LYRICA 50 MG CAPS 1 tab po TID PREGABALIN 86686228231 No Longer Active Vishal Hui MD Active LORATADINE 10 MG TABS 1 tab po qd LORATADINE 01365975671 No Longer Active Vishal Hui MD Active VERAPAMIL HCL ER 180 MG CR-TABS 1 tab po bid VERAPAMIL HCL 69887212618 No Longer Active Vishal Hui MD Active MIRALAX POWD 1 capfull once daily POLYETHYLENE GLYCOL 3350 96346241327 No Longer Active Vishal Hui MD Active PREDNISONE 20 MG TABS 1 tab po qd PREDNISONE 57972199344 No Longer Active Renzo Thornton DO Active LEVOFLOXACIN 500 MG TABS 1 tab po qd LEVOFLOXACIN 82817236479 No Longer Active Renzo Thornton DO Active BUSPIRONE HCL 15 MG TABS 1 tab po TID BUSPIRONE HCL 33649052338 No Longer Active Renzo Thornton DO Active BENZTROPINE MESYLATE 1 MG TABS 1 tab po qd BENZTROPINE MESYLATE 14697347709 No Longer Active Renzo Thornton DO Active ATENOLOL 25 MG TABS 1 tab po qd ATENOLOL 97938089236 No Longer Active Renzo Thornton DO Active ESCITALOPRAM OXALATE 20 MG TABS 1 tab po qd ESCITALOPRAM OXALATE 08866114467 No Longer Active Renzo Thornton DO Active ADVAIR DISKUS 250-50 MCG/DOSE AEPB 1 puff BID FLUTICASONE-SALMETEROL 85574342854 No Longer Active Renzo Thornton DO Active PREDNISONE 20 MG TAB 2 tabs daily for 3 days, 1 tab daily for 3 days, 1/2 tab daily for 2 days PREDNISONE 29546627816 No Longer Active Vishal Hui MD Active CEFDINIR 300 MG CAPS by mouth twice a day CEFDINIR 56769533651 No Longer Active Vishal Hui MD Active LANSOPRAZOLE 30 MG CPDR 1 cap po qd LANSOPRAZOLE 91972413111 No Longer Active Vishal Hui MD Active BACLOFEN 20 MG TABS 1 tab po tid BACLOFEN 21321692647 No Longer Active Vishal Hui MD Active ADVAIR DISKUS 250-50 MCG/DOSE AEPB 1 puff BID ADVAIR DISKUS 250-50 MCG/DOSE AEPB FLUTICASONE-SALMETEROL Inactive ESCITALOPRAM OXALATE 20 MG TABS 1 tab po qd ESCITALOPRAM OXALATE 20 MG TABS 686072 ESCITALOPRAM OXALATE Inactive ATENOLOL 25 MG TABS 1 tab po qd ATENOLOL 25 MG TABS 267742 ATENOLOL Inactive BENZTROPINE MESYLATE 1 MG TABS 1 tab po qd BENZTROPINE MESYLATE 1 MG TABS 864369 BENZTROPINE MESYLATE Inactive BUSPIRONE HCL 15 MG TABS 1 tab po TID BUSPIRONE HCL 15 MG TABS 208966 BUSPIRONE HCL Inactive LEVOFLOXACIN 500 MG TABS 1 tab po qd LEVOFLOXACIN 500 MG TABS 157282 LEVOFLOXACIN Inactive PREDNISONE 20 MG TABS 1 tab po qd PREDNISONE 20 MG TABS 393513 PREDNISONE Inactive MIRALAX POWD 1 capfull once daily MIRALAX POWD 660320 POLYETHYLENE GLYCOL 3350 Inactive VERAPAMIL HCL ER 180 MG CR-TABS 1 tab po bid VERAPAMIL HCL ER 180 MG CR-TABS VERAPAMIL HCL Inactive LORATADINE 10 MG TABS 1 tab po qd LORATADINE 10 MG TABS 511868 LORATADINE Inactive LYRICA 50 MG CAPS 1 tab po TID LYRICA 50 MG CAPS PREGABALIN Inactive ZALEPLON 10 MG CAPS 1 cap po every other night ZALEPLON 10 MG CAPS 493542 ZALEPLON Inactive SAPHRIS 5 MG SUBL 1 tab po qd SAPHRIS 5 MG SUBL ASENAPINE MALEATE Inactive TRAZODONE HCL 50 MG TABS 1/2 tab po qd prn for anxiety TRAZODONE HCL 50 MG TABS 893680 TRAZODONE HCL Inactive LATUDA 20 MG TABS Take one by mouth daily LATUDA 20 MG TABS LURASIDONE HCL Inactive LISINOPRIL 20 MG TABS 1 tab po qd LISINOPRIL 20 MG TABS 030818 LISINOPRIL Inactive SAPHRIS 10 MG SUBL 1 [...] twice daily BACTRIM DS 800-160 MG TAB 133960 TRIMETHOPRIM-SULFAMETHOXAZOLE Inactive MULTIVITAMINS CAPS Take one by mouth daily MULTIVITAMINS CAPS MULTIPLE VITAMIN Inactive MELATONIN 3 MG CAPS 2 po q hs MELATONIN 3 MG CAPS 043216 MELATONIN Inactive KEFLEX 500 MG ORAL CAPS 1 cap QID by mouth KEFLEX 500 MG ORAL CAPS 504243 CEPHALEXIN Inactive CLINDAMYCIN HCL 150 MG CAPS 1 four times a day CLINDAMYCIN HCL 150 MG CAPS 19740326 CLINDAMYCIN HCL Inactive DIFLUCAN 150 MG TAB 1 tablet by mouth daily DIFLUCAN 150 MG TAB 981215 FLUCONAZOLE Inactive PROZAC 20 MG CAP Take one by mouth daily PROZAC 20 MG CAP 253574 FLUOXETINE HCL Inactive IBUPROFEN 600 MG TAB 1 po TID PRN IBUPROFEN 600 MG TAB 665830 IBUPROFEN Inactive VYVANSE 40 MG CAPS 1 daily, VYVANSE 40 MG CAPS LISDEXAMFETAMINE DIMESYLATE Inactive TRAZODONE HCL 100 MG TAB take 1 at bedtime TRAZODONE HCL 100 MG TAB 067022 TRAZODONE HCL Inactive AMITRIPTYLINE HCL 100 MG TAB one at hs AMITRIPTYLINE HCL 100 MG TAB 683602 AMITRIPTYLINE HCL Inactive AMLODIPINE BESYLATE 5 MG TABS 1 tablet by mouth daily AMLODIPINE BESYLATE 5 MG TABS 687303 AMLODIPINE BESYLATE Inactive LATUDA 80 MG TABS Take one by mouth daily LATUDA 80 MG TABS LURASIDONE HCL Inactive SAPHRIS 5 MG SUBL 1 po bid SAPHRIS 5 MG SUBL ASENAPINE MALEATE Inactive PREDNISONE 20 MG TAB 2 tabs daily for 4 days, 1 tab daily for 4 days, 1/2 tab daily for 4 days PREDNISONE 20 MG TAB 281686 PREDNISONE Inactive AMBIEN 5 MG ORAL TABS 1 tab at bedtime AMBIEN 5 MG ORAL TABS 672637 ZOLPIDEM TARTRATE Inactive PROZAC 20 MG ORAL CAPS 1 tab daily PROZAC 20 MG ORAL CAPS 907203 FLUOXETINE HCL Inactive ABILIFY 15 MG ORAL TABS 1 tab daily ABILIFY 15 MG ORAL TABS 634541 ARIPIPRAZOLE Inactive METOPROLOL TARTRATE 50 MG TAB 1 po bid METOPROLOL TARTRATE 50 MG TAB 720150 METOPROLOL TARTRATE Inactive TRAMADOL HCL 50 MG TABS 1-2 po TID PRN Pain TRAMADOL HCL 50 MG TABS 820064 TRAMADOL HCL Inactive PIROXICAM 20 MG CAPS 1 cap po qd PRN Pain PIROXICAM 20 MG CAPS 953622 PIROXICAM Inactive MINIPRESS 2 MG CAPS 4 cap po at night MINIPRESS 2 MG CAPS 517687 PRAZOSIN HCL Inactive MIRALAX PACK 1 po qd PRN Constipation MIRALAX PACK 965193 POLYETHYLENE GLYCOL 3350 Inactive METOPROLOL TARTRATE 25 MG ORAL TABS 1/2 tablet twice daily for heart rate and blood pressure METOPROLOL TARTRATE 25 MG ORAL TABS 052709 METOPROLOL TARTRATE Inactive VALIUM 5 MG TAB Take 1-2 tablets daily VALIUM 5 MG TAB 446172 DIAZEPAM Inactive FLAGYL 500 MG TAB 1 tablet by mouth bid FLAGYL 500 MG TAB 825114 METRONIDAZOLE Inactive DICLOFENAC POTASSIUM TABS Take 1 tablet twice a day (pt. is not sure of the dose.) DICLOFENAC POTASSIUM TABS DICLOFENAC POTASSIUM TABS Inactive ZITHROMAX Z-EARNEST 250 MG TABS 2 today and then 1 daily for 4 days ZITHROMAX Z-EARNEST 250 MG TABS 8512388 AZITHROMYCIN Inactive PREDNISONE 20 MG TABS 2 daily for 5 days then 1 daily for 5 days PREDNISONE 20 MG TABS 854211 PREDNISONE Inactive PROAIR HFA 108 (90 BASE) MCG/ACT AERS 2 puffs four times a day as needed 2015 PROAIR HFA 108 (90 BASE) MCG/ACT AERS ALBUTEROL SULFATE Inactive HYDROCODONE-ACETAMINOPHEN 5-325 MG TABS 1 to 2 four times a day as needed for pain use until can be seen by specialist HYDROCODONE- ACETAMINOPHEN 5-325 MG TABS 110369 HYDROCODONE-ACETAMINOPHEN Inactive TESSALON PERLES 100 MG CAP 1 to 2 tablets by mouth 3 times daily as needed for cough TESSALON PERLES 100 MG CAP 338482 BENZONATATE Inactive CHANTIX STARTING MONTH EARNEST 0.5 [...] Pain 2015 DICLOFENAC SODIUM 50 MG TBEC 718624 DICLOFENAC SODIUM Inactive TOPAMAX 50 MG ORAL TABS 1 tab twice daily TOPAMAX 50 MG ORAL TABS 317014 TOPIRAMATE Inactive VIIBRYD 10 MG ORAL TABS Take 1 tablet once a day VIIBRYD 10 MG ORAL TABS VILAZODONE HCL Inactive LEVOFLOXACIN 500 MG ORAL TABS po daily LEVOFLOXACIN 500 MG ORAL TABS 608157 LEVOFLOXACIN Inactive METHYLPREDNISOLONE 4 MG ORAL TABS po daily METHYLPREDNISOLONE 4 MG ORAL TABS 718145 METHYLPREDNISOLONE Inactive OXYCODONE HCL ER 10 MG ORAL T12A 1/2 tab by mouth every 4 hours prn OXYCODONE HCL ER 10 MG ORAL T12A OXYCODONE HCL Inactive FLAGYL 500 MG TAB 1 tablet by mouth bid FLAGYL 500 MG TAB 186648 METRONIDAZOLE Inactive MONISTAT 7 COMBO PACK WOODROW 100 & 2 MG-% (9GM) VAG KIT 1 applicatorful per vagina q pm x 7 MONISTAT 7 COMBO PACK WOODROW 100 & 2 MG-% (9GM) VAG KIT MICONAZOLE NITRATE Inactive BACTRIM DS 800-160 MG TABS 1 twice a day BACTRIM DS 800-160 MG TABS 571249 SULFAMETHOXAZOLE-TRIMETHOPRIM Inactive TRAMADOL HCL 50 MG TABS 1/2-1 tab TID PRN TRAMADOL HCL 50 MG TABS 166670 TRAMADOL HCL Inactive ABILIFY MAINTENA 400 MG IM SUSR 400mg injection every 26 days ABILIFY MAINTENA 400 MG IM SUSR ARIPIPRAZOLE Inactive KLONOPIN 1 MG ORAL TABS 1 tab po TID KLONOPIN 1 MG ORAL TABS 063988 CLONAZEPAM Inactive ADVAIR DISKUS 250-50 MCG/DOSE INH AEPB 1 puff twice a day for asthma ADVAIR DISKUS 250-50 MCG/DOSE INH AEPB FLUTICASONE- SALMETEROL Inactive BENADRYL 25 MG CAP 4 po at bedtime for insomnia BENADRYL 25 MG CAP DIPHENHYDRAMINE HCL Inactive PREDNISONE 20 MG TABS 2 daily for 5 days then 1 daily for 5 days PREDNISONE 20 MG TABS 396049 PREDNISONE Inactive HYDROCODONE-ACETAMINOPHEN 5-325 MG ORAL TABS 1 tab two times a day HYDROCODONE-ACETAMINOPHEN 5-325 MG ORAL TABS 336824 HYDROCODONE-ACETAMINOPHEN Inactive ZITHROMAX Z-EARNEST 250 MG TABS 2 today and then 1 daily for 4 days ZITHROMAX Z-EARNEST 250 MG TABS [id number] AZITHROMYCIN Inactive GUAIFENESIN-CODEINE 100-10 MG/5ML SYRP 5ml every 4 to 6 hours as needed for cough GUAIFENESIN-CODEINE 100-10 MG/5ML SYRP [id number] GUAIFENESIN-CODEINE Inactive HALOPERIDOL 10 MG ORAL TABS 1 tab q.d HALOPERIDOL 10 MG ORAL TABS [id number] HALOPERIDOL Inactive ASPIRIN 325 MG ORAL TABS 1 tab q.d ASPIRIN 325 MG ORAL TABS [id number] ASPIRIN Inactive FLUTICASONE PROPIONATE 50 MCG/ACT SUSP 2 sprays each nostril daily before bed. FLUTICASONE PROPIONATE 50 MCG/ACT SUSP [id number] FLUTICASONE PROPIONATE Inactive ZOFRAN 4 MG TABS 1 po q6hr PRN Nausea ZOFRAN 4 MG TABS [id number] ONDANSETRON HCL Inactive KEFLEX 500 MG CAP 1 po qid KEFLEX 500 MG CAP 486704 CEPHALEXIN Inactive ACETAMINOPHEN-CODEINE 120-12 MG/5ML SOLN 5 ml by mouth every 4-6 hours if needed for cough ACETAMINOPHEN-CODEINE 120-12 MG/5ML SOLN 177205 ACETAMINOPHEN-CODEINE Inactive PREDNISONE 20 MG TAB 1 tablet daily x 4 days PREDNISONE 20 MG TAB 978944 PREDNISONE Inactive TROPICAMIDE 0.5 % OPHTH SOLN 1 drop PRN eye spasms TROPICAMIDE 0.5 % OPHTH SOLN 935590 TROPICAMIDE Inactive LEVAQUIN 500 MG TABS 1 daily for infection LEVAQUIN 500 MG TABS 223297 LEVOFLOXACIN Inactive PREDNISONE 10 MG TABS 2 daily for 5 days then 1 daily for 5 days PREDNISONE 10 MG TABS 331880 PREDNISONE Inactive EQ NICOTINE 21 MG/24HR TRANS [...] for cough TESSALON PERLES 100 MG CAPS 660687 BENZONATATE Inactive AMITIZA 8 MCG ORAL CAPS [...] twice a day MUPIROCIN 2 % OINT 559514 MUPIROCIN Inactive BACTRIM DS 800-160 MG TAB Take one (1) tablet by mouth twice a day for 5 days BACTRIM DS 800-160 MG TAB [id number] TRIMETHOPRIM- SULFAMETHOXAZOLE Inactive LACTULOSE 10 GM/15ML ORAL SOLN 30mL oral BID for IBS-C LACTULOSE 10 GM/15ML ORAL SOLN 686875 LACTULOSE Inactive MIRALAX ORAL POWD 17GMS DAILY IN WATER MIRALAX ORAL POWD 078457 POLYETHYLENE GLYCOL 3350 Inactive CEFDINIR 300 MG CAPS by mouth twice a day CEFDINIR 300 MG CAPS 822055 CEFDINIR Inactive PREDNISONE 20 MG TAB 2 tabs daily for 3 days, 1 tab daily for 3 days, 1/2 tab daily for 2 days PREDNISONE 20 MG TAB 142579 PREDNISONE Inactive BACTRIM DS 800-160 MG TABS 1 po BID x 7 days BACTRIM DS 800-160 MG TABS 19820521 SULFAMETHOXAZOLE-TRIMETHOPRIM Inactive DIFLUCAN 150 MG TABS 1 pill every other day x 2 doses DIFLUCAN 150 MG TABS 353289 FLUCONAZOLE Inactive BACTRIM DS 800-160 MG TABS 1 pill by mouth twice daily BACTRIM DS 800-160 MG TABS 19820521 SULFAMETHOXAZOLE-TRIMETHOPRIM Inactive KEFLEX 500 MG CAP 1 po TID x 10 days KEFLEX 500 MG CAP 939916 CEPHALEXIN Inactive Advance Directives Directive Description Start [...] Measured blood pressure, diastolic 90 mm[Hg] BP mcnalyl blood pressure, systolic 136 mm[Hg] BP sys [...] % 11.0-15.0 platelet count 443 THOUSAND/UL 10*3/mm3 250-728 6791/03/01 mean platelet volume 8.2 fL 7.5-12.5 leukocyte [...] % 11.0-15.0 platelet count 349 THOUSAND/UL 10*3/mm3 991-806 4666/04/12 mean platelet volume 8.4 fL 7.5-12.5 Lab Report: CBC W/DIFF, Comp. Metabolic Panel, HGBA1C, Magnesium - Chemistry sodium, serum 141 mmol/L 049-081 0676/07/24 carbon dioxide, venous blood 27.8 mmol/L 21.0-32.0 [...] 369 10^3/MM^3 10*3/mm3 142-424 Lab Report: Chlamydia/GC APTIMA/97646 - Lab chlamydia DNA probe NOT DETECTED NOT DETECTED Lab Report: Chlamydia/GC APTIMA/81450 - Microbiology Neisseria gonorrhoeae DNA probe NOT DETECTED NOT DETECTED Lab Report: Chlamydia/GC APTIMA/25883, Urinalysis, Complete, with Reflex ... - Lab chlamydia DNA probe NOT DETECTED NOT DETECTED Lab Report: Chlamydia/GC APTIMA/38182, Urinalysis, Complete, with Reflex ... - Microbiology Neisseria gonorrhoeae DNA probe NOT DETECTED NOT DETECTED Lab Report: Chlamydia/GC APTIMA/62113, Urinalysis, Complete, with Reflex ... - Urinalysis microalbumin/total urine volume 2 mg/L Units converted. See lab report for original value. microalbumin/creatinine ratio, urine 9 MCG/MG CREAT mg/L <30 Lab Report: Comp. Metabolic Panel - Chemistry sodium, serum 140 mmol/L [phone]/08/08 carbon dioxide, venous blood 33.7 mmol/L 21.0-32.0 potassium, serum 5.0 mmol/L 3.5-5.2 chloride, serum 103 mmol/L 98-107 blood glucose 80 mg/dL 65-110 urea nitrogen, blood 13 mg/dL 7-18 creatinine, serum 0.88 mg/dL 0.55-1.30 alanine aminotransferase (SGPT), serum 54 U/L -78 aspartate aminotransferase (SGOT), serum 29 U/L 15-37 calcium, serum 9.7 mg/dL 8.5-10.1 bilirubin, serum, total 0.30 mg/dL 0.00-1.00 sodium, serum 140 mmol/L 083-937 9006/06/28 carbon dioxide, venous blood 23.8 mmol/L 21.0-32.0 [...] negative Encounters Code Encounter Date Provider Facility CPT-80106 Level 3 Est. [facility] 11:36:[facility] Patient 10:53:17 [facility] 3 Est. Patient 11:08:35 CDT Suzan [facility] CPT-11655 Level 3 Est. Patient 15:55:20 CDT Suzan [facility]-81548 Level 4 Est. Patient 10:49:34 CDT Suzan [facility]-07567 Level 3 Est. Patient 10:00:25 CDT Suzan [facility] CPT-64261 Level 3 Est. Patient 10:29:30 CDT Suzan [facility] CPT-66895 Level 3 Est. Patient 11:04:[address] [facility]-58401 Level 3 Est. Patient 11:15:58 [employer] DES[employer]ER Renzo Thornton [facility] CPT-65981 Level 3 Est. Patient 15:28:23 [employer] AND [employer] DESIGNER Suzan Boo [facility] CPT-46791 Level 4 Est. Patient 10:20:54 [employer] DES[employer]ER Suzan Boo [facility] CPT-81460 Level 3 Est. Patient 11:47:37 [employer] AND DIE DESIGNER Ahmet Carbajal MD [facility]-21324 Level 3 Est. Patient 10:40:11 [employer] AND D[employer] DESIGNER Ahmet Carbajal MD [facility] CPT-96156 Level 3 Est. Patient 15:07:06 [employer] DES[employer]ER Neeraj Collins MD [facility] CPT-13258 Level 4 Est. Patient 14:45:00 [employer] DES[employer]ER Ahmet Carbajal MD [facility] CPT-78508 Level 3 Est. Patient 13:59:59 CDT Luigi Martínez [facility] CPT-36458 Level 3 Est. Patient 18:18:53 CDT Neeraj Collins MD [facility] CPT-70730 Level 3 Est. Patient 15:50:44 CDT Vishal Hui MD [facility] CPT-61702 Level 3 Est. Patient 11:36:17 CDT Ahmet Carbajal MD [facility] CPT-52682 Level 3 Est. Patient 13:29:16 CDT Vishal Hui MD [facility] CPT-94116 Level 3 Est. Patient 14:27:52 CDT Neeraj Collins MD [facility] CPT-42882 Level 3 Est. Patient 08:56:03 CDT Luigi Martínez [facility] CPT-16398 Level 4 Est. Patient 12:11:48 CDT Fabiola Johnson [facility] CPT-01656 Level 3 New Patient 16:53:37 CDT Albert Caldera MD [facility] CPT-12297 Level 3 Est. Patient 11:25:49 CDT Renzo Thornton DO [facility] CPT-63625 Level 3 Est. Patient 15:22:01 CDT Ahmet Carbajal MD [facility] CPT-45670 Level 4 Est. Patient 09:00:51 [employer]ER Vishal Hui MD [facility] CPT-49125 Level 3 Est. Patient 11:37:33 [employer] DESIGNER Vishal Hui MD [facility] CPT-25163 Level 3 Est. Patient 08:41:09 [employer] DES[employer]ER Vishal Hui MD [facility] CPT-97175 Level 4 Est. Patient 10:19:35 [employer] DESIGNER Vishal Hui MD [facility] CPT-35926 Level 3 Est. Patient 13:35:45 CDT Vishal Hui MD [facility] CPT-52438 Level 4 Est. Patient 10:08:37 CDT Vishal Hui MD [facility] CPT-18601 Level 3 Est. Patient 11:22:10 CDT Vishal Hui MD [facility] CPT-66654 Level 3 Est. Patient 11:03:32 CDT Sahara Rodriguez MD [facility]-18893 Level 3 Est. Patient 09:41:35 CDT Vishal Hui MD [facility] CPT-54561 Level 3 Est. Patient 12:00:41 CDT Neeraj Collins MD [facility] CPT-25772 Level 3 Est. Patient 09:16:24 CDT Vishal Hui MD [facility] CPT-65407 Level 4 Est. Patient 13:59:09 CDT Neeraj Collins MD [facility] CPT-72266 Level 3 Est. Patient 15:19:43 CDT Renzo Thornton DO [facility] CPT-18921 Level 3 Est. Patient 18:10:26 CDT Sahara Rodriguez MD [facility]-35843 Level 3 Est. Patient 14:49:50 CDT Vishal Hui MD [facility] CPT-01078 Level 4 Est. Patient 18:41:46 CDT Neeraj Collins MD [facility] CPT-86438 Level 4 Est. Patient 09:18:38 [employer]ER Vishal Hui MD [facility] CPT-57500 Level 3 Est. Patient 14:43:55 [employer] DES[employer]ER Vishal Hui MD [facility] CPT-11126 Level 3 Est. Patient 15:26:33 TO[employer] DESIGNER [facility] Level 3 Est. Patient 10:32:14 [employer] DES[employer]ER Vishal Hui MD [facility] CPT-59965 Level 3 Est. Patient 15:12:52 [employer] DES[employer]ER Vishal Hui MD [facility] CPT-95283 Level 4 Est. Patient 09:19:27 CDT Vishal Hui MD [facility] CPT-71023 Level 3 Est. Patient 15:53:00 CDT Renzo Thornton [facility] CPT-10672 Level 3 Est. Patient 15:50:30 CDT Renzo Thornton [facility] CPT-00203 Level 3 Est. Patient 16:55:24 CDT Vishal Hui MD [facility] Procedures Code Procedure Name Date Entry Date Standard Description CPT-77902 UA Dip Auto (Floor Use Only) 11:36:47 CDT CPT-96034 Venipuncture Draw Fee 10:53:17 CDT CPT-65565 EKG Trac and Interp - XRAY USE ONLY 15:59:30 CDT 09/13 CPT-40591 Chest 1V Frontal - XRAY USE ONLY 15:59:30 CDT CPT-79007 Venipuncture Draw Fee 15:44:02 CDT CPT-69871 Venipuncture Draw Fee 08:41:12 CDT CPT-88254 Abd compl w upright - XRAY USE ONLY 10:27:59 CDT 06/28 CPT-79159 Smoking Cessation counseling 11:15:58 [employer]ER CPT-G0439 [facility] Annual Wellness Exam 09:30:58 [employer]ER CPT-94995 TSH - LAB USE ONLY 08:50:26 [employer]ER CPT-73394 CBC - LAB USE ONLY 08:50:26 [employer]ER CPT-89763 Venipuncture Draw Fee 08:50:26 [employer]ER CPT-88225 Abx/Therapy Injection 17:34:30 [employer]ER CPT-20157 Nexplanon Removal with Reinsertion 14:09:32 CDT CPT-J7307 Nexplanon (Implant) 14:09:32 CDT CPT-OV Office Visit 14:09:32 CDT CPT-84519 UA w micro - LAB USE ONLY 16:21:13 CDT CPT-61514 Wet Mount - LAB USE ONLY 16:21:13 CDT CPT-66204 First Vx - Ix admin for Medicare patients 14:37:47 CDT CPT-33449 Fluzone Preservative Free Intramuscular Suspension 14:37 :47 CDT CPT-11625 Abx/Therapy Injection 13:54:22 CDT CPT-29743 Abx/Therapy Injection 08:47:09 CDT CPT-82571 Abx/Therapy Injection 13:29:56 CDT CPT-75437 Abx/Therapy Injection 08:36:16 CDT CPT-96287 Wet Mount - LAB USE ONLY 17:44:58 CDT CPT-20346 UA w micro - LAB USE ONLY 17:44:58 CDT CPT-76315 CMP - LAB USE ONLY 17:44:58 CDT CPT-89808 Venipuncture Draw Fee 17:44:58 CDT CPT-66080 Cervical Min 4V - XRAY USE ONLY 09:01:40 CDT CPT-55348 Chest 2V Frontal and Lat - XRAY USE ONLY 11:06:31 CDT CPT-59104 EKG Trac and Interp - XRAY USE ONLY 11:31:43 CDT 08/26 CPT-J3420 Vitamin B12 1000mcg (Cyanocobalamin) 08:10:26 [employer]ER 04/12 CPT-64182 Abx/Therapy Injection 08:10:26 [employer]ER CPT-G0438 Initial Annual Wellness Exam 19:01:01 [employer]ER CPT-J3420 Vitamin B12 1000mcg (Cyanocobalamin) 16:57:46 CDT 08/14 CPT-40692 Recombivax HB Injection Suspension 5 MCG/0.5ML 08:37:50 [employer]ER CPT-16247 Immunization Single Admin 08:37:50 [employer]ER CPT-J3420 Vitamin B12 1000mcg (Cyanocobalamin) 08:32:16 [employer] DES[employer]ER 03/11 CPT-83526 Abx/Therapy Injection 08:32:16 [employer] DES[employer]ER CPT-05511 Chest 2V Frontal and Lat 11:46:38 [employer] DES[employer]ER CPT-77627 Venipuncture Draw Fee 09:12:45 [employer]ER CPT-J3420 Vitamin B12 1000mcg (Cyanocobalamin) 08:50:15 [employer] DES[employer]ER 02/08 CPT-85100 Abx/Therapy Injection 08:50:15 [employer] DES[employer]ER CPT-Cryo Cryotherapy 10:19:35 [employer]ER CPT-000 Give Appropriate Flu Vaccine 09:22:16 CDT CPT-J3420 Vitamin B12 1000mcg (Cyanocobalamin) 19:08:57 CDT 01/11 CPT-85859 Abx/Therapy Injection 19:08:57 CDT CPT-J3420 Vitamin B12 1000mcg (Cyanocobalamin) 08:19:08 CDT 12/11 CPT-99952 Abx/Therapy Injection 08:19:08 CDT CPT-J3420 Vitamin B12 1000mcg (Cyanocobalamin) 14:48:00 CDT 11/09 CPT-16415 Abx/Therapy Injection 14:47:59 CDT CPT-J3420 Vitamin B12 1000mcg (Cyanocobalamin) 08:34:04 CDT 10/09 CPT-38668 Abx/Therapy Injection 08:34:04 CDT CPT-J3420 Vitamin B12 1000mcg (Cyanocobalamin) 09:18:52 CDT 09/11 CPT-62336 Abx/Therapy Injection 09:18:52 CDT CPT-J3420 Vitamin B12 1000mcg (Cyanocobalamin) 08:35:44 CDT 09/04 CPT-03986 Abx/Therapy Injection 08:35:44 CDT CPT-35199 Immunization Single Admin 11:07:16 CDT CPT-89602 Hepatitis B adult IM 11:07:16 CDT CPT-J3420 Vitamin B12 1000mcg (Cyanocobalamin) 11:00:49 CDT 08/28 CPT-J1040 Depo Medrol 80 mg (Methyl Prednisolone Acetate) 11:00: 49 CDT CPT-94034 Abx/Therapy Injection 11:00:49 CDT CPT-J1040 Depo Medrol 80 mg (Methyl Prednisolone Acetate) 09:16: 23 CDT CPT-J3420 Vitamin B12 1000mcg (Cyanocobalamin) 08:27:05 CDT 08/20 CPT-72308 Abx/Therapy Injection 08:27:05 CDT CPT-09125 Recombivax HB Injection Suspension 5 MCG/0.5ML 10:00:41 CDT CPT-82188 Administration single or combination vaccine inc oral 10 :00:41 CDT CPT-06644 Sono transvag pelvis non OB uterus ovaries cervix 16:36: 57 CDT CPT-25561 LS spine comp w obliq 09:50:55 [employer] CPT-41493 Abd compl w upright 09:50:55 [employer]ER CPT-J1100 Decadron 4mg (Dexamethasone) 15:51:24 [employer] DES[employer]ER CPT-J1030 Depo Medrol 40 mg (Methyl Prednisolone Acetate) 15:51: 24 [employer] DES[employer]ER CPT-35236 Abx/Therapy Injection 15:51:24 [employer] DES[employer]ER CPT-J1100 Decadron 4mg (Dexamethasone) 15:26:33 [employer] DES[employer]ER CPT-J1030 Depo Medrol 40 mg (Methyl Prednisolone Acetate) 15:26: 33 [employer]ER CPT-25057 Sono retroperitoneal complete kidneys and bladder 17:15: 30 CDT CPT-60687 Abd compl w upright 16:09:25 CDT CPT-J1100 Decadron 8mg (Dexamethasone) 17:07:57 CDT CPT-72044 Abx/Therapy Injection 17:07:57 CDT CPT-J1100 Decadron 8mg (Dexamethasone) 16:55:24 CDT CPT-08764 Chest 2V Frontal and Lat 16:32:44 CDT
--- OUTSIDE RECORDS SUMMARY | 2016-11-04 20:14 | XMS REPORT | Clinical Summary ---
Author Author Admin, BRIELLEE Organization [facility] Address Unknown Phone Unavailable Allergies, Adverse Reactions, [...] health care facility Sinus tachycardia 427.89 Active Vsihal Hui MD Other specified cardiac dysrhythmias Schizoaffective [...] sites Morbid obesity 278.01 Active Juliet Kimbrough [employer]ICAL [employer] DEFENSE CONTROLLER Morbid obesity 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 Active [...] breath Nocturnal hypoxia 799.02 Active Fabiola Johnson [employer] DEF[employer]OLLER Hypoxemia Neck pain 723.1 Resolved Vishal Hui [...] vagina q pm x 7 MICONAZOLE NITRATE 09918143321 Active Pacollina Johnl [employer]ICAL AIR DEFENSE CONTROLLER Active FLAGYL 500 MG TAB 1 tablet by mouth bid METRONIDAZOLE 24295709520 Active Jillina Frazell TACTICAL AIR DEFENSE CONTROLLER Active TESSALON PERLES 100 MG CAP 1 to 2 tablets by mouth 3 times daily as needed for cough BENZONATATE 18287346198 No Longer Active Tataina Messizell TACTICAL AIR DEFENSE CONTROLLER Active ABILIFY MAINTENA 400 MG IM SUSR 400mg injection every 26 days ARIPIPRAZOLE 18933168417 Active Silvia Casey ENGINE INSPECTOR Active IMITREX 50 MG ORAL TABS 0.5 po x 1 PRN Headache. May repeat dose x 1 in 2 hours if needed SUMATRIPTAN SUCCINATE 72022749849 Active Vishal Hui MD Active OXYCODONE HCL ER 10 MG ORAL T12A 1/2 tab by mouth every 4 hours prn OXYCODONE HCL 39971260159 Active Neeraj Collins MD Active METHYLPREDNISOLONE 4 MG ORAL TABS po daily METHYLPREDNISOLONE 14874759357 Active Vishal Hui MD Active LEVOFLOXACIN 500 MG ORAL TABS po daily LEVOFLOXACIN 91735698642 Active Vishal Hui MD Active CHANTIX STARTING MONTH EARNEST 0.5 MG X 11 & 1 MG X 42 TABS take as directed 2015 VARENICLINE TARTRATE 09757820520 Active Ahmet Carbajal MD Active CHANTIX 1 MG TABS 1 twice a day to help quit smoking VARENICLINE TARTRATE 29513297553 Active Ahmet Carbajal MD Active HYDROCODONE-ACETAMINOPHEN 5-325 MG TABS 1 to 2 four times a day as needed for pain use until can be seen by specialist HYDROCODONE- ACETAMINOPHEN 81991917012 No Longer Active Vishal Hui MD Active PROAIR HFA 108 (90 BASE) MCG/ACT AERS 2 puffs four times a day as needed 2015 ALBUTEROL SULFATE 18111807206 No Longer Active Vishal Hui MD Active PREDNISONE 20 MG TABS 2 daily for 5 days then 1 daily for 5 days PREDNISONE 12226928983 No Longer Active Vishal Hui MD Active ZITHROMAX Z-EARNEST 250 MG TABS 2 today and then 1 daily for 4 days AZITHROMYCIN 63811194858 No Longer Active Vishal Hui MD Active DICLOFENAC SODIUM 50 MG TBEC 1 tablet by mouth four times daily PRN Pain 2015 DICLOFENAC SODIUM 75839175182 Active Vishal Hui MD Active DICLOFENAC POTASSIUM TABS Take 1 tablet twice a day (pt. is not sure of the dose.) DICLOFENAC POTASSIUM TABS 82072230239 No Longer Active Vishal Hui MD Active VERAPAMIL HCL ER 120 MG ORAL CR-TABS Take 1 tablet by mouth twice a day. VERAPAMIL HCL 77489466100 Active Vishal Hui MD Active FLAGYL 500 MG TAB 1 tablet by mouth bid METRONIDAZOLE 91827350651 No Longer Active Vishal Hui MD Active FLUTICASONE PROPIONATE 50 MCG/ACT SUSP 2 sprays each nostril daily before bed. FLUTICASONE PROPIONATE 56970566062 Active Fabiola Johnson APRN Active ADZENYS XR-ODT 6.3 MG ORAL TBED 1 tab po daily for ADHD AMPHETAMINE 91980541430 Active Fabiola Johnson APRN Active BENADRYL 25 MG CAP 4 po at bedtime for insomnia DIPHENHYDRAMINE HCL 09520655933 Active Fabiola Johnson APRN Active KLONOPIN 1 MG ORAL TABS 1 tab po TID CLONAZEPAM 61706368976 Active Fabiola Johnson APRN Active VALIUM 5 MG TAB Take 1-2 tablets daily DIAZEPAM 37070851899 No Longer Active Fabiola Johnson APRN Active METOPROLOL TARTRATE 25 MG ORAL TABS 1/2 tablet twice daily for heart rate and blood pressure METOPROLOL TARTRATE 90615357543 No Longer Active Fabiola Johnson APRN Active MIRALAX ORAL POWD 17GMS DAILY IN WATER POLYETHYLENE GLYCOL 3350 64239937732 Active Vishal Hui MD Active VIIBRYD 10 MG ORAL TABS Take 1 tablet once a day VILAZODONE HCL 86103478094 Active Ahmet Carbajal MD Active MIRALAX PACK 1 po qd PRN Constipation POLYETHYLENE GLYCOL 3350 78084133881 No Longer Active Ahmet Carbajal MD Active MINIPRESS 2 MG CAPS 4 cap po at night PRAZOSIN HCL 34412465459 No Longer Active Ahmet Carbajal MD Active PIROXICAM 20 MG CAPS 1 cap po qd PRN Pain PIROXICAM 12730503208 No Longer Active Ahmet Carbajal MD Active TRAMADOL HCL 50 MG TABS 1-2 po TID PRN Pain TRAMADOL HCL 56047595075 No Longer Active Ahmet Carbajal MD Active METOPROLOL TARTRATE 50 MG TAB 1 po bid METOPROLOL TARTRATE 52083665488 No Longer Active Ahmet Carbajal MD Active ABILIFY 15 MG ORAL TABS 1 tab daily ARIPIPRAZOLE 57416012242 No Longer Active Ahmet Carbajal MD Active PROZAC 20 MG ORAL CAPS 1 tab daily FLUOXETINE HCL 72612500025 No Longer Active Ahmet Carbajal MD Active AMBIEN 5 MG ORAL TABS 1 tab at bedtime ZOLPIDEM TARTRATE 78829492409 No Longer Active Ahmet Carbajal MD Active PREDNISONE 20 MG TAB 2 tabs daily for 4 days, 1 tab daily for 4 days, 1/2 tab daily for 4 days PREDNISONE 08891949674 No Longer Active Ahmet Carbajal MD Active KEFLEX 500 MG CAP 1 po TID x 10 days CEPHALEXIN 32665974242 No Longer Active Vishal Hui MD Active TOPAMAX 50 MG ORAL TABS 1 tab twice daily TOPIRAMATE 03822067786 Active Vishal Hiu MD Active SAPHRIS 5 MG SUBL 1 po bid ASENAPINE MALEATE 25970936174 No Longer Active Luigi Martínez T[employer]ICAL AIR DEFENSE CONTROLLER Active LATUDA 80 MG TABS Take one by mouth daily LURASIDONE HCL 65710448499 No Longer Active Jillina Johnl TACTICAL AIR DEFENSE CONTROLLER Active AMLODIPINE BESYLATE 5 MG TABS 1 tablet by mouth daily AMLODIPINE BESYLATE 41353957300 No Longer Active Luigi Martínez TACTICAL AIR DEFENSE CONTROLLER Active AMITRIPTYLINE HCL 100 MG TAB one at hs AMITRIPTYLINE HCL 21219139224 No Longer Active Vishal Hui MD Active TRAZODONE HCL 100 MG TAB take 1 at bedtime TRAZODONE HCL 91394643539 No Longer Active Vishal Hui MD Active VYVANSE 40 MG CAPS 1 daily, LISDEXAMFETAMINE DIMESYLATE 69278884191 No Longer Active Vishal Hui MD Active IBUPROFEN 600 MG TAB 1 po TID PRN IBUPROFEN 58481174002 No Longer Active Vishal Hui MD Active PROZAC 20 MG CAP Take one by mouth daily FLUOXETINE HCL 52456029806 No Longer Active Vishal Hui MD Active ZOFRAN 4 MG TABS 1 po q6hr PRN Nausea ONDANSETRON HCL Active Vishal Hui MD Active BACTRIM DS 800-160 MG TABS 1 pill by mouth twice daily SULFAMETHOXAZOLE-TRIMETHOPRIM 62836295185 No Longer Active Sahara Rodriguez MD PhD Active DIFLUCAN 150 MG TAB 1 tablet by mouth daily FLUCONAZOLE 75084355558 No Longer Active Vishal Hui MD Active TIZANIDINE HCL 4 MG TABS 1 po q6hr PRN Muscle Spasm/Back Pain TIZANIDINE HCL 35149090739 Active Vishal Hui MD Active CLINDAMYCIN HCL 150 MG CAPS 1 four times a day CLINDAMYCIN HCL 46595200968 No Longer Active Neeraj Collins MD Active KEFLEX 500 MG ORAL CAPS 1 cap QID by mouth CEPHALEXIN 45914941940 No Longer Active Neeraj Collins MD Active DIFLUCAN 150 MG TABS 1 pill every other day x 2 doses FLUCONAZOLE 64413210164 No Longer Active Sahara Rodriguez MD PhD Active MELATONIN 3 MG CAPS 2 po q hs MELATONIN 11494981147 No Longer Active Sahara Rodriguez MD PhD Active MULTIVITAMINS CAPS Take one by mouth daily MULTIPLE VITAMIN 05618346478 No Longer Active Sahara Rodriguez MD PhD Active BACTRIM DS 800-160 MG TAB 1 tab by mouth twice daily TRIMETHOPRIM-SULFAMETHOXAZOLE 32794835798 No Longer Active Sahara Rodriguez MD PhD Active [facility] PROBIOTIC ORAL CHEW 2 daily po PROBIOTIC PRODUCT 75294177660 No Longer Active Sahara Rodriguez MD PhD Active BACTRIM DS 800-160 MG TABS 1 po BID x 7 days SULFAMETHOXAZOLE-TRIMETHOPRIM 69305228254 No Longer Active Vishal Hui MD Active CHANTIX STARTING MONTH EARNEST 0.5 MG X 11 & 1 MG X 42 TABS 0.5mg daily for 3 days , then 0.5mg BID for 4 days, then 1mg BID VARENICLINE TARTRATE 38131860140 No Longer Active TAMARA Gray Active VERAPAMIL HCL CR 120 MG TAB CR 1 po bid VERAPAMIL HCL 81842095625 No Longer Active Vishal Hui MD Active METOPROLOL SUCCINATE 50 MG TB24 1 tablet by mouth daily METOPROLOL SUCCINATE 74549965139 No Longer Active Vishal Hui MD Active SAPHRIS 10 MG SUBL 1 tab po bid ASENAPINE MALEATE 87581564409 No Longer Active Vishal Hui MD Active LISINOPRIL 20 MG TABS 1 tab po qd LISINOPRIL 30933055959 No Longer Active Vishal Hui MD Active LATUDA 20 MG TABS Take one by mouth daily LURASIDONE HCL 45739952751 No Longer Active Vishal Hui MD Active TRAZODONE HCL 50 MG TABS 1/2 tab po qd prn for anxiety TRAZODONE HCL 30290428400 No Longer Active Vishal Hui MD Active OMEPRAZOLE 20 MG TBEC 1 po q a.m. 30min prior to first food intake OMEPRAZOLE 04223471441 Active Vishal Hui MD Active RANITIDINE HCL 150 MG CAPS 1 twice a day RANITIDINE HCL 56924098486 Active Jillina Messidwightl TACTICAL AIR DEFENSE CONTROLLER Active LINZESS 290 MCG CAPS Take one by mouth daily LINACLOTIDE 15216010917 No Longer Active Vishal Hui MD Active SAPHRIS 5 MG SUBL 1 tab po qd ASENAPINE MALEATE 16935715589 No Longer Active Vishal Hui MD Active ZALEPLON 10 MG CAPS 1 cap po every other night ZALEPLON 67837228122 No Longer Active Vishal Hui MD Active LYRICA 50 MG CAPS 1 tab po TID PREGABALIN 88541593138 No Longer Active Vishal Hui MD Active LORATADINE 10 MG TABS 1 tab po qd LORATADINE 56881153613 No Longer Active Vishal Hui MD Active VERAPAMIL HCL ER 180 MG CR-TABS 1 tab po bid VERAPAMIL HCL 19689219134 No Longer Active Vishal Hui MD Active MIRALAX POWD 1 capfull once daily POLYETHYLENE GLYCOL 3350 37984994364 No Longer Active Vishal Hui MD Active PREDNISONE 20 MG TABS 1 tab po qd PREDNISONE 45881472803 No Longer Active Renzo Thornton DO Active LEVOFLOXACIN 500 MG TABS 1 tab po qd LEVOFLOXACIN 79701612029 No Longer Active Renzo Thornton DO Active BUSPIRONE HCL 15 MG TABS 1 tab po TID BUSPIRONE HCL 86917279292 No Longer Active Renzo Thornton DO Active BENZTROPINE MESYLATE 1 MG TABS 1 tab po qd BENZTROPINE MESYLATE 96924391324 No Longer Active Renzo Thornton DO Active ATENOLOL 25 MG TABS 1 tab po qd ATENOLOL 09625110634 No Longer Active Renzo Thornton DO Active ESCITALOPRAM OXALATE 20 MG TABS 1 tab po qd ESCITALOPRAM OXALATE 99895001290 No Longer Active Renzo Thornton DO Active ADVAIR DISKUS 250-50 MCG/DOSE AEPB 1 puff BID FLUTICASONE-SALMETEROL 56621025268 No Longer Active Renzo Thornton DO Active PREDNISONE 20 MG TAB 2 tabs daily for 3 days, 1 tab daily for 3 days, 1/2 tab daily for 2 days PREDNISONE 12820298304 No Longer Active Vishal Hui MD Active CEFDINIR 300 MG CAPS by mouth twice a day CEFDINIR 50663864981 No Longer Active Vishal Hui MD Active LANSOPRAZOLE 30 MG CPDR 1 cap po qd LANSOPRAZOLE 11841391643 No Longer Active Vishal Hui MD Active BACLOFEN 20 MG TABS 1 tab po tid BACLOFEN 75514207887 No Longer Active Vishal Hui MD Active ADVAIR DISKUS 250-50 MCG/DOSE AEPB 1 puff BID ADVAIR DISKUS 250-50 MCG/DOSE AEPB FLUTICASONE-SALMETEROL Inactive ESCITALOPRAM OXALATE 20 MG TABS 1 tab po qd ESCITALOPRAM OXALATE 20 MG TABS 963986 ESCITALOPRAM OXALATE Inactive ATENOLOL 25 MG TABS 1 tab po qd ATENOLOL 25 MG TABS 354491 ATENOLOL Inactive BENZTROPINE MESYLATE 1 MG TABS 1 tab po qd BENZTROPINE MESYLATE 1 MG TABS 520517 BENZTROPINE MESYLATE Inactive BUSPIRONE HCL 15 MG TABS 1 tab po TID BUSPIRONE HCL 15 MG TABS 473720 BUSPIRONE HCL Inactive LEVOFLOXACIN 500 MG TABS 1 tab po qd LEVOFLOXACIN 500 MG TABS 717199 LEVOFLOXACIN Inactive PREDNISONE 20 MG TABS 1 tab po qd PREDNISONE 20 MG TABS 059095 PREDNISONE Inactive MIRALAX POWD 1 capfull once daily MIRALAX POWD 908335 POLYETHYLENE GLYCOL 3350 Inactive VERAPAMIL HCL ER 180 MG CR-TABS 1 tab po bid VERAPAMIL HCL ER 180 MG CR-TABS VERAPAMIL HCL Inactive LORATADINE 10 MG TABS 1 tab po qd LORATADINE 10 MG TABS 612558 LORATADINE Inactive LYRICA 50 MG CAPS 1 tab po TID LYRICA 50 MG CAPS PREGABALIN Inactive ZALEPLON 10 MG CAPS 1 cap po every other night ZALEPLON 10 MG CAPS 838173 ZALEPLON Inactive SAPHRIS 5 MG SUBL 1 tab po qd SAPHRIS 5 MG SUBL ASENAPINE MALEATE Inactive TRAZODONE HCL 50 MG TABS 1/2 tab po qd prn for anxiety TRAZODONE HCL 50 MG TABS 174821 TRAZODONE HCL Inactive LATUDA 20 MG TABS Take one by mouth daily LATUDA 20 MG TABS LURASIDONE HCL Inactive LISINOPRIL 20 MG TABS 1 tab po qd LISINOPRIL 20 MG TABS 646908 LISINOPRIL Inactive SAPHRIS 10 MG SUBL 1 [...] twice daily BACTRIM DS 800-160 MG TAB 911716 TRIMETHOPRIM-SULFAMETHOXAZOLE Inactive MULTIVITAMINS CAPS Take one by mouth daily MULTIVITAMINS CAPS MULTIPLE VITAMIN Inactive MELATONIN 3 MG CAPS 2 po q hs MELATONIN 3 MG CAPS 665994 MELATONIN Inactive KEFLEX 500 MG ORAL CAPS 1 cap QID by mouth KEFLEX 500 MG ORAL CAPS 407817 CEPHALEXIN Inactive CLINDAMYCIN HCL 150 MG CAPS 1 four times a day CLINDAMYCIN HCL 150 MG CAPS 700350 CLINDAMYCIN HCL Inactive DIFLUCAN 150 MG TAB 1 tablet by mouth daily DIFLUCAN 150 MG TAB 371640 FLUCONAZOLE Inactive PROZAC 20 MG CAP Take one by mouth daily PROZAC 20 MG CAP 893959 FLUOXETINE HCL Inactive IBUPROFEN 600 MG TAB 1 po TID PRN IBUPROFEN 600 MG TAB 959840 IBUPROFEN Inactive VYVANSE 40 MG CAPS 1 daily, VYVANSE 40 MG CAPS LISDEXAMFETAMINE DIMESYLATE Inactive TRAZODONE HCL 100 MG TAB take 1 at bedtime TRAZODONE HCL 100 MG TAB 106596 TRAZODONE HCL Inactive AMITRIPTYLINE HCL 100 MG TAB one at hs AMITRIPTYLINE HCL 100 MG TAB 981965 AMITRIPTYLINE HCL Inactive AMLODIPINE BESYLATE 5 MG TABS 1 tablet by mouth daily AMLODIPINE BESYLATE 5 MG TABS 714997 AMLODIPINE BESYLATE Inactive LATUDA 80 MG TABS Take one by mouth daily LATUDA 80 MG TABS LURASIDONE HCL Inactive SAPHRIS 5 MG SUBL 1 po bid SAPHRIS 5 MG SUBL ASENAPINE MALEATE Inactive PREDNISONE 20 MG TAB 2 tabs daily for 4 days, 1 tab daily for 4 days, 1/2 tab daily for 4 days PREDNISONE 20 MG TAB 355537 PREDNISONE Inactive AMBIEN 5 MG ORAL TABS 1 tab at bedtime AMBIEN 5 MG ORAL TABS 006826 ZOLPIDEM TARTRATE Inactive PROZAC 20 MG ORAL CAPS 1 tab daily PROZAC 20 MG ORAL CAPS 687839 FLUOXETINE HCL Inactive ABILIFY 15 MG ORAL TABS 1 tab daily ABILIFY 15 MG ORAL TABS 898071 ARIPIPRAZOLE Inactive METOPROLOL TARTRATE 50 MG TAB 1 po bid METOPROLOL TARTRATE 50 MG TAB 744490 METOPROLOL TARTRATE Inactive TRAMADOL HCL 50 MG TABS 1-2 po TID PRN Pain TRAMADOL HCL 50 MG TABS 204828 TRAMADOL HCL Inactive PIROXICAM 20 MG CAPS 1 cap po qd PRN Pain PIROXICAM 20 MG CAPS 766441 PIROXICAM Inactive MINIPRESS 2 MG CAPS 4 cap po at night MINIPRESS 2 MG CAPS 611559 PRAZOSIN HCL Inactive MIRALAX PACK 1 po qd PRN Constipation MIRALAX PACK 352572 POLYETHYLENE GLYCOL 3350 Inactive METOPROLOL TARTRATE 25 MG ORAL TABS 1/2 tablet twice daily for heart rate and blood pressure METOPROLOL TARTRATE 25 MG ORAL TABS 025618 METOPROLOL TARTRATE Inactive VALIUM 5 MG TAB Take 1-2 tablets daily VALIUM 5 MG TAB 718044 DIAZEPAM Inactive FLAGYL 500 MG TAB 1 tablet by mouth bid FLAGYL 500 MG TAB 017168 METRONIDAZOLE Inactive DICLOFENAC POTASSIUM TABS Take 1 tablet twice a day (pt. is not sure of the dose.) DICLOFENAC POTASSIUM TABS DICLOFENAC POTASSIUM TABS Inactive ZITHROMAX Z-EARNEST 250 MG TABS 2 today and then 1 daily for 4 days ZITHROMAX Z-EARNEST 250 MG TABS 4704800 AZITHROMYCIN Inactive PREDNISONE 20 MG TABS 2 daily for 5 days then 1 daily for 5 days PREDNISONE 20 MG TABS 843472 PREDNISONE Inactive PROAIR HFA 108 (90 BASE) MCG/ACT AERS 2 puffs four times a day as needed 2015 PROAIR HFA 108 (90 BASE) MCG/ACT AERS ALBUTEROL SULFATE Inactive HYDROCODONE-ACETAMINOPHEN 5-325 MG TABS 1 to 2 four times a day as needed for pain use until can be seen by specialist HYDROCODONE- ACETAMINOPHEN 5-325 MG TABS 333705 HYDROCODONE-ACETAMINOPHEN Inactive TESSALON PERLES 100 MG CAP 1 to 2 tablets by mouth 3 times daily as needed for cough TESSALON PERLES 100 MG CAP 122072 BENZONATATE Inactive CEFDINIR 300 MG CAPS by mouth twice a day CEFDINIR 300 MG CAPS 498340 CEFDINIR Inactive PREDNISONE 20 MG TAB 2 tabs daily for 3 days, 1 tab daily for 3 days, 1/2 tab daily for 2 days PREDNISONE 20 MG TAB 799704 PREDNISONE Inactive BACTRIM DS 800-160 MG TABS 1 po BID x 7 days BACTRIM DS 800-160 MG TABS 19820521 SULFAMETHOXAZOLE-TRIMETHOPRIM Inactive DIFLUCAN 150 MG TABS 1 pill every other day x 2 doses DIFLUCAN 150 MG TABS 142897 FLUCONAZOLE Inactive BACTRIM DS 800-160 MG TABS 1 pill by mouth twice daily BACTRIM DS 800-160 MG TABS 19820521 SULFAMETHOXAZOLE-TRIMETHOPRIM Inactive KEFLEX 500 MG CAP 1 po TID x 10 days KEFLEX 500 MG CAP 310735 CEPHALEXIN Inactive Advance Directives Directive Description Start [...] % 11.6-14.8 platelet count 394 10^3/MM^3 10*3/mm3 874-310 3657/01/11 leukocyte count, blood 13.8 10^3/MM^3 10*3/mm3 4.6-10.2 [...] Panel - Chemistry sodium, serum 139 mmol/L 731-896 9088/12/03 carbon dioxide, venous blood 28.5 mmol/L 21.0-32.0 [...] 5.5 % 4.3-6.0 cholesterol, serum 159 mg/dL 958-599 3781/12/03 triglyceride, serum, fasting 118 mg/dL 30-200 HDL [...] 362 10^3/MM^3 10*3/mm3 142-424 Lab Report: Chlamydia/GC APTIMA/[id number] - Lab chlamydia DNA probe NOT DETECTED NOT DETECTED Lab Report: Chlamydia/GC [facility]TIM[facility]/[id number] - Microbiology Neisseria gonorrhoeae DNA probe NOT DETECTED NOT DETECTED Lab Report: Comp. Metabolic Panel - Chemistry sodium, serum 140 mmol/L 507-231 6781/08/08 carbon dioxide, venous blood 33.7 mmol/L 21.0-32.0 potassium, serum 5.0 mmol/L 3.5-5.2 chloride, serum 103 mmol/L 98-107 blood glucose 80 mg/dL 65-110 urea nitrogen, blood 13 mg/dL 7-18 creatinine, serum 0.88 mg/dL 0.55-1.30 alanine aminotransferase (SGPT), serum 54 U/L -78 aspartate aminotransferase (SGOT), serum 29 U/L 15-37 calcium, serum 9.7 mg/dL 8.5-10.1 bilirubin, serum, total 0.30 mg/dL 0.00-1.00 sodium, serum 139 mmol/L 450-505 6475/12/22 carbon dioxide, venous blood 26.8 mmol/L 21.0-32.0 potassium, serum 4.2 mmol/L 3.5-5.2 chloride, serum 103 mmol/L 98-107 blood glucose 115 mg/dL 65-110 urea nitrogen, blood 20 mg/dL 7-18 creatinine, serum 0.90 mg/dL 0.55-1.30 alanine aminotransferase (SGPT), serum 38 U/L aspartate aminotransferase (SGOT), serum 19 U/L 15-37 calcium, serum 8.6 mg/dL 8.5-10.1 bilirubin, serum, total 0.30 mg/dL 0.00-1.00 sodium, serum 139 mmol/L 319-102 2217/01/11 carbon dioxide, venous blood 26.6 mmol/L 21.0-32.0 potassium, serum 4.1 mmol/L 3.5-5.2 chloride, serum 100 mmol/L 98-107 blood glucose 86 mg/dL 65-110 urea nitrogen, blood 16 mg/dL 7-18 creatinine, serum 1.00 mg/dL 0.55-1.30 alanine aminotransferase (SGPT), serum 48 U/L -78 aspartate aminotransferase (SGOT), serum 17 U/L 15-37 calcium, serum 9.1 mg/dL 8.5-10.1 bilirubin, serum, total 0.40 mg/dL 0.00-1.00 sodium, serum 142 mmol/L 940-936 3574/06/08 carbon dioxide, venous blood 27.6 mmol/L 21.0-32.0 [...] Rate - Chemistry sodium, serum 139 mmol/L 469-047 2995/12/11 carbon dioxide, venous blood 25.4 mmol/L 21.0-32.0 [...] mg/dL Encounters Code Encounter Date Provider Facility CPT-20415 Level 3 Est. Patient 13:59:59 CDT Luigi Martínez [facility] CPT-75736 Level 3 Est. Patient 18:18:53 CDT [facility] CPT-85873 Level 3 Est. Patient 15:50:44 CDT Vishal Hui [facility] CPT-55708 Level 3 Est. Patient 11:36:17 CDT Ahmet Carbajal [facility] CPT-09826 Level 3 Est. Patient 13:29:16 CDT Vishal Hui MD [facility] CPT-25684 Level 3 Est. Patient 14:27:52 CDT Neeraj Collins [facility] CPT-38572 Level 3 Est. Patient 08:56:03 CDT Luigi Martínez [facility] CPT-89128 Level 4 Est. Patient 12:11:48 CDT Fabiola Johnson [facility] CPT-62801 Level 3 New Patient 16:53:37 CDT Albert Caldera [facility] CPT-67210 Level 3 Est. Patient 11:25:49 CDT Renzo Thornton DO [facility] CPT-38654 Level 3 Est. Patient 15:22:01 CDT Ahmet Carbajal [facility] CPT-11476 Level 4 Est. Patient 09:00:51 WATER SERVICE DISPATCHER Vishal Hui MD [facility] CPT-66582 Level 3 Est. Patient 11:37:33 WATER SERVICE DISPATCHER Vishal Hui MD [facility] CPT-72576 Level 3 Est. Patient 08:41:09 WATER SERVICE DISPATCHER Vishal Hui MD [facility] CPT-72838 Level 4 Est. Patient 10:19:35 WATER SERVICE DISPATCHER Vishal Hui MD [facility] CPT-45735 Level 3 Est. Patient 13:35:45 CDT Vishal Hui MD [facility] CPT-72417 Level 4 Est. Patient 10:08:37 CDT Vishal Hui MD [facility] CPT-20127 Level 3 Est. Patient 11:22:10 CDT Vishal Hui MD [facility] CPT-97046 Level 3 Est. Patient 11:03:32 CDT Sahara Rodriguez MD [facility]-64535 Level 3 Est. Patient 09:41:35 CDT Vishal Hui [facility] CPT-49951 Level 3 Est. Patient 12:00:41 CDT Neeraj Collins MD [facility]-06754 Level 3 Est. Patient 09:16:24 CDT Vishal Hui MD [facility] CPT-80600 Level 4 Est. Patient 13:59:09 CDT Neeraj Collins MD [facility]-71402 Level 3 Est. Patient 15:19:43 CDT Renzo Thornton DO [facility] CPT-36019 Level 3 Est. Patient 18:10:26 CDT Sahara [id number] Level 3 Est. Patient 14:49:50 CDT Vishal Hui MD [facility] CPT-66050 Level 4 Est. Patient 18:41:46 CDT Neeraj Collins MD [facility] CPT-60586 Level 4 Est. Patient 09:18:38 WATER SERVICE DISPATCHER Vishal Hui [facility] CPT-59907 Level 3 Est. Patient 14:43:55 WATER SERVICE DISPATCHER Vishal Hui MD [facility]-23866 Level 3 Est. Patient 15:26:33 WATER SERVICE DISPATCHER Sahara Rodriguez MD PhD [facility]-48869 Level 3 Est. Patient 10:32:14 WATER SERVICE DISPATCHER Vishal Hui MD [facility] CPT-08650 Level 3 Est. Patient 15:12:52 WATER SERVICE DISPATCHER Vishal Hui MD [facility] CPT-46520 Level 4 Est. Patient 09:19:27 CDT Vishal H[facility] CPT-90674 Level 3 Est. Patient 15:53:00 CDT Renzo Thornton [facility] CPT-90650 Level 3 Est. Patient 15:50:30 CDT Renzo Thornton [facility] CPT-55916 Level 3 Est. Patient 16:55:24 CDT Vishal Hui MD [facility] Procedures Code Procedure Name Date Entry Date Standard Description CPT-72027 UA w micro - LAB USE ONLY 16:21:13 CDT CPT-38714 Wet Mount - LAB USE ONLY 16:21:13 CDT CPT-32117 First Vx - Ix admin for Medicare patients 14:37:47 CDT CPT-06153 Fluzone Preservative Free Intramuscular Suspension 14:37 :47 CDT CPT-20370 Abx/Therapy Injection 13:54:22 CDT CPT-55507 Abx/Therapy Injection 08:47:09 CDT CPT-65659 Abx/Therapy Injection 13:29:56 CDT CPT-69457 Abx/Therapy Injection 08:36:16 CDT CPT-43921 Wet Mount - LAB USE ONLY 17:44:58 CDT CPT-91569 UA w micro - LAB USE ONLY 17:44:58 CDT CPT-36809 CMP - LAB USE ONLY 17:44:58 CDT CPT-21917 Venipuncture Draw Fee 17:44:58 CDT CPT-92422 Cervical Min 4V - XRAY USE ONLY 09:01:40 CDT CPT-95361 Chest 2V Frontal and Lat - XRAY USE ONLY 11:06:31 CDT CPT-38357 EKG Trac and Interp - XRAY USE ONLY 11:31:43 CDT 08/26 CPT-J3420 Vitamin B12 1000mcg (Cyanocobalamin) 08:10:26 WATER SERVICE DISPATCHER 04/12 CPT-35204 Abx/Therapy Injection 08:10:26 WATER SERVICE DISPATCHER CPT-G0438 Initial Annual Wellness Exam 19:01:01 WATER SERVICE DISPATCHER CPT-J3420 Vitamin B12 1000mcg (Cyanocobalamin) 16:57:46 CDT 08/14 CPT-21552 Recombivax HB Injection Suspension 5 MCG/0.5ML 08:37:50 WATER SERVICE DISPATCHER CPT-31040 Immunization Single Admin 08:37:50 WATER SERVICE DISPATCHER CPT-J3420 Vitamin B12 1000mcg (Cyanocobalamin) 08:32:16 WATER SERVICE DISPATCHER 03/11 CPT-85926 Abx/Therapy Injection 08:32:16 WATER SERVICE DISPATCHER CPT-42477 Chest 2V Frontal and Lat 11:46:38 WATER SERVICE DISPATCHER CPT-80550 Venipuncture Draw Fee 09:12:45 WATER SERVICE DISPATCHER CPT-J3420 Vitamin B12 1000mcg (Cyanocobalamin) 08:50:15 WATER SERVICE DISPATCHER 02/08 CPT-73762 Abx/Therapy Injection 08:50:15 WATER SERVICE DISPATCHER CPT-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 Give Appropriate Flu Vaccine 09:22:16 CDT CPT-J3420 Vitamin B12 1000mcg (Cyanocobalamin) 19:08:57 CDT 01/11 CPT-86016 Abx/Therapy Injection 19:08:57 CDT CPT-J3420 Vitamin B12 1000mcg (Cyanocobalamin) 08:19:08 CDT 12/11 CPT-43844 Abx/Therapy Injection 08:19:08 CDT CPT-J3420 Vitamin B12 1000mcg (Cyanocobalamin) 14:48:00 CDT 11/09 CPT-03413 Abx/Therapy Injection 14:47:59 CDT CPT-J3420 Vitamin B12 1000mcg (Cyanocobalamin) 08:34:04 CDT 10/09 CPT-65151 Abx/Therapy Injection 08:34:04 CDT CPT-J3420 Vitamin B12 1000mcg (Cyanocobalamin) 09:18:52 CDT 09/11 CPT-73114 Abx/Therapy Injection 09:18:52 CDT CPT-J3420 Vitamin B12 1000mcg (Cyanocobalamin) 08:35:44 CDT 09/04 CPT-81549 Abx/Therapy Injection 08:35:44 CDT CPT-72237 Immunization Single Admin 11:07:16 CDT CPT-62045 Hepatitis B adult IM 11:07:16 CDT CPT-J3420 Vitamin B12 1000mcg (Cyanocobalamin) 11:00:49 CDT 08/28 CPT-J1040 Depo Medrol 80 mg (Methyl Prednisolone Acetate) 11:00: 49 CDT CPT-08802 Abx/Therapy Injection 11:00:49 CDT CPT-J1040 Depo Medrol 80 mg (Methyl Prednisolone Acetate) 09:16: 23 CDT CPT-J3420 Vitamin B12 1000mcg (Cyanocobalamin) 08:27:05 CDT 08/20 CPT-13773 Abx/Therapy Injection 08:27:05 CDT CPT-79860 Recombivax HB Injection Suspension 5 MCG/0.5ML 10:00:41 CDT CPT-32656 Administration single or combination vaccine inc oral 10 :00:41 CDT CPT-09439 Sono transvag pelvis non OB uterus ovaries cervix 16:36: 57 CDT CPT-07235 LS spine comp w obliq 09:50:55 WATER SERVICE DISPATCHER CPT-17017 Abd compl w upright 09:50:55 WATER SERVICE DISPATCHER CPT-J1100 Decadron 4mg (Dexamethasone) 15:51:24 WATER SERVICE DISPATCHER CPT-J1030 Depo Medrol 40 mg (Methyl Prednisolone Acetate) 15:51: 24 WATER SERVICE DISPATCHER CPT-48753 Abx/Therapy Injection 15:51:24 WATER SERVICE DISPATCHER CPT-J1100 Decadron 4mg (Dexamethasone) 15:26:33 WATER SERVICE DISPATCHER CPT-J1030 Depo Medrol 40 mg (Methyl Prednisolone Acetate) 15:26: 33 WATER SERVICE DISPATCHER CPT-03454 Sono retroperitoneal complete kidneys and bladder 17:15: 30 CDT CPT-05939 Abd compl w upright 16:09:25 CDT CPT-J1100 Decadron 8mg (Dexamethasone) 17:07:57 CDT CPT-44296 Abx/Therapy Injection 17:07:57 CDT CPT-J1100 Decadron 8mg (Dexamethasone) 16:55:24 CDT CPT-26113 Chest 2V Frontal and Lat 16:32:44 CDT
--- OUTSIDE RECORDS SUMMARY | 2016-11-04 20:14 | XMS REPORT ---
Author Author [facility] Medical Staff Organization [facility] Address [address] [place], [place] [address] Phone [phone] Care Team Providers Care Investigative Research Specialist Name Role Phone DENICE OCHOA MD PP [phone] Summary purpose TRANSITION OF CARE AUTO GENERATION [...] tests and/or laboratory data RESULTS Routine Urinalysis 01-45-188970:50:00 Result Normal Range Units Color YELLOW Clarity Cloudy Specific [place] 1.010 1.003-1.035 pH 7.0 4.5-8.0 Glucose NEGATIVE [...] 10-20 Estimated GFR 101 >=60 mL/min/1.7 Hematology 30-87-610867:07:00 Result Normal Range Units WBC 8.3 4.8-10.8 103/uL RBC 4.5 4.2-5.4 106/uL HGB 14.1 12.0-16.0 g/dl HCT 41.7 36.9-47.0 % MCV 92.1 81-99 FL MCH H 31.1 27-31 pg MCHC 33.8 33-37 g/dl RDW 11.9 11.5-15.5 % PLT 330 130-400 103/uL MPV 10.3 7.3-10.4 FL Neutro % 57.1 40-70 % Lymph % 30.8 20-40 % [place] % 9.8 0-10.0 % Eos % 1.7 0-7.0 % Baso % 0.4 0-2 % Neutro # 4.7 1.5-7.5 103/uL Lymph # 2.6 0.9-4.0 103/uL [place] # 0.8 0-0.8 103/uL Eos # 0.1 0-0.6 103/uL Baso # 0.0 0-0.1 103/uL Body Fluid 43-00-517211:50:00 Result Normal Range Units pH 7.0 4.5-8.0 Radiology Results 77-53-290283:07:00 Result Normal Range Units MPV 10.3 7.3-10.4 FL History of procedures Procedure Code Code Type Description Date Performed Performing Physician 55577 CPT-4 ROUTINE VENIPUNCTURE 06-16-2015 MINO CHEW 88648 CPT-4 COMPREHEN METABOLIC PANEL 06-16-2015 MINO CHEW 08211 CPT-4 URINALYSIS, AUTO W/SCOPE 06-16-2015 MINO CHEW 15760 CPT-4 COMPLETE CBC W/AUTO DIFF WBC 06-16-2015 MINO CHEW J0595 CPT-4 BUTORPHANOL TARTRATE 1 MG 06-16-2015 MINO CHEW J1885 CPT-4 TORADOL SYR 30MG/ML 06-16-2015 MINO CHEW J2550 CPT-4 PROMETHAZIEN 25MG/ML 06-16-2015 MINO CHEW 62160 CPT-4 EMERGENCY DEPT VISIT 06-16-2015 MINO CHEW 49651 CPT-4 EMERGENCY DEPT VISIT 06-16-2015 MINO CHEW 52004 CPT-4 THER/PROPH/DIAG INJ, SC/IM 06-16-2015 MINO CHEW Functional status Functional Status Finding Observation Time Diet regular 70-08-576568:50 Abdomen Appearance obese 95-04-396995:50 Abdomen non-tender 24-98-948175:50 Bowel Sounds present 11-78-050066:50 Vick no 28-36-549334:50 Urination normal 67-07-927721:50 Quality sym/unlabored :50 Cough absent 31-27-473676:50 Secretions no :50 Breath Sounds RUL clear :50 Breath Sounds RML clear :50 Breath Sounds RLL clear :50 Breath Sounds BENJA clear :50 Breath Sounds LLL clear 05-65-932834:50 Airway natural :50 Chest Tube no 63-74-179548:50 Oxygen no 36-09-408893:30 Temp >100.4 no :50 Temp <96.8 no :50 Chills with rigors no :50 HR > 90bpm no :50 Respirations > 20 no :50 Systolic <90 no :50 headache stiff neck no :50 WBC > 45352 no 28-99-659885:50 Nursing Note Pt was given home instructions at this time :44 Vital signs Type Value Date Respiration Rate 18breaths per minute :30 Pulse 98beats per minute :30 Oxygen Saturation 99% :30 BP Systolic 127mmHg :30 BP Diastolic 66mmHg 39-48-134563:30 Temperature 98F 75-68-850590:30 Height 65inches 48-61-564235:14 Weight 291LB 34-69-623067:14 Social history Type Value Smoking Status FORMER SMOKER Treatment Plan No treatment plan text is available for this visit. Hospital discharge instructions Dismissal Condition good Disposition on DC home DC Inst/Educ Give yes Flu Vac 2014
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
--- OUTSIDE RECORDS SUMMARY | 2016-11-04 20:15 | XMS REPORT | Clinical Summary ---
Author Author Admin, E Organization [facility] Address Unknown Phone Unavailable Allergies, Adverse Reactions, [...] Generic Name ND Status Provider Patient Instruction CLINDAMYCIN HCL 150 MG CAPS 1 four times a day CLINDAMYCIN HCL 80084276820 No Longer Active Neeraj Collins MD Active KEFLEX 500 MG ORAL CAPS 1 cap QID by mouth CEPHALEXIN 73909837149 No Longer Active Neeraj Collins MD Active DIFLUCAN 150 MG TABS 1 pill every other day x 2 doses FLUCONAZOLE 36312043288 No Longer Active Sahara Rodriguez MD PhD Active MELATONIN 3 MG CAPS 2 po q hs MELATONIN 53939395459 No Longer Active Sahara Rodriguez MD PhD Active MULTIVITAMINS CAPS Take one by mouth daily MULTIPLE VITAMIN 91840242287 No Longer Active Sahara Rodriguez MD PhD Active BACTRIM DS 800-160 MG TAB 1 tab by mouth twice daily TRIMETHOPRIM-SULFAMETHOXAZOLE 83207753668 No Longer Active Sahara Rodriguez MD PhD Active [employer] PROBIOTIC ORAL CHEW 2 daily po PROBIOTIC PRODUCT 49224741451 No Longer Active Sahara Rodriguez MD PhD Active IBUPROFEN 600 MG TAB 1 po TID PRN IBUPROFEN 87796550636 Active Luigi Martínez FINISHING INSPECTOR Active BACTRIM DS 800-160 MG TABS 1 po BID x 7 days SULFAMETHOXAZOLE-TRIMETHOPRIM 46864055204 No Longer Active Vishal Hui MD Active CHANTIX STARTING MONTH EARNEST 0.5 MG X 11 & 1 MG X 42 TABS 0.5mg daily for 3 days , then 0.5mg BID for 4 days, then 1mg BID VARENICLINE TARTRATE 77661821838 No Longer Active TAMARA Gray Active METOPROLOL TARTRATE 50 MG TAB 1 po bid METOPROLOL TARTRATE 36447482301 Active Vishal Hui MD Active TRAZODONE HCL 100 MG TAB take 1 at bedtime TRAZODONE HCL 60013619233 Active Vishal Hui MD Active AMLODIPINE BESYLATE 5 MG TABS 1 tablet by mouth daily AMLODIPINE BESYLATE 48046157301 Active Vishal Hui MD Active VERAPAMIL HCL CR 120 MG TAB CR 1 po bid VERAPAMIL HCL 83888107497 No Longer Active Vishal Hui MD Active METOPROLOL SUCCINATE 50 MG TB24 1 tablet by mouth daily METOPROLOL SUCCINATE 24039171617 No Longer Active Vishal Hui MD Active TRAMADOL HCL 50 MG TABS 1-2 po TID PRN Pain TRAMADOL HCL 76073705880 Active Vishal Hui MD Active SAPHRIS 5 MG SUBL 1 po bid ASENAPINE MALEATE 57011029938 Active Vishal Hui MD Active SAPHRIS 10 MG SUBL 1 tab po bid ASENAPINE MALEATE 65557817183 No Longer Active Vishal Hui MD Active LISINOPRIL 20 MG TABS 1 tab po qd LISINOPRIL 88539812830 No Longer Active Vishal Hui MD Active BENADRYL 25 MG CAP 2 po tid prn anxiety DIPHENHYDRAMINE HCL 88159770164 Active Vishal Hui MD Active LATUDA 80 MG TABS Take one by mouth daily LURASIDONE HCL 78624788111 Active Vishal Hui MD Active LATUDA 20 MG TABS Take one by mouth daily LURASIDONE HCL 42567551401 No Longer Active Vishal Hui MD Active TRAZODONE HCL 50 MG TABS 1/2 tab po qd prn for anxiety TRAZODONE HCL 96994251237 No Longer Active Vishal Hui MD Active PIROXICAM 20 MG CAPS 1 cap po qd PRN Pain PIROXICAM 28137037646 Active Vishal Hui MD Active OMEPRAZOLE 20 MG TBEC 1 po q a.m. 30min prior to first food intake OMEPRAZOLE 19641144818 Active Vishal Hui MD Active RANITIDINE HCL 150 MG CAPS 1 twice a day RANITIDINE HCL 75982509859 Active Vishal Hui MD Active PROZAC 20 MG CAP Take one by mouth daily FLUOXETINE HCL 70658341179 Active Vishal Hui MD Active LINZESS 290 MCG CAPS Take one by mouth daily LINACLOTIDE 30056592400 Active Vishal Hui MD Active SAPHRIS 5 MG SUBL 1 tab po qd ASENAPINE MALEATE 46274426057 No Longer Active Vishal Hui MD Active ZALEPLON 10 MG CAPS 1 cap po every other night ZALEPLON 15499169470 No Longer Active Vishal Hui MD Active LYRICA 50 MG CAPS 1 tab po TID PREGABALIN 19592173453 No Longer Active Vishal Hui MD Active LORATADINE 10 MG TABS 1 tab po qd LORATADINE 59984708270 No Longer Active Vishal Hui MD Active VERAPAMIL HCL ER 180 MG CR-TABS 1 tab po bid VERAPAMIL HCL 70848973211 No Longer Active Vishal Hui MD Active MIRALAX POWD 1 capfull once daily POLYETHYLENE GLYCOL 3350 01870711791 No Longer Active Vishal Hui MD Active PREDNISONE 20 MG TABS 1 tab po qd PREDNISONE 67266568786 No Longer Active Renzo Thornton DO Active LEVOFLOXACIN 500 MG TABS 1 tab po qd LEVOFLOXACIN 45913685812 No Longer Active Renzo Thornton DO Active BUSPIRONE HCL 15 MG TABS 1 tab po TID BUSPIRONE HCL 92145484763 No Longer Active Renzo Thornton DO Active BENZTROPINE MESYLATE 1 MG TABS 1 tab po qd BENZTROPINE MESYLATE 92990668579 No Longer Active Renzo Thornton DO Active ATENOLOL 25 MG TABS 1 tab po qd ATENOLOL 12169607606 No Longer Active Renzo Thornton DO Active ESCITALOPRAM OXALATE 20 MG TABS 1 tab po qd ESCITALOPRAM OXALATE 54599800183 No Longer Active Renzo Thornton DO Active ADVAIR DISKUS 250-50 MCG/DOSE AEPB 1 puff BID FLUTICASONE-SALMETEROL 47334992938 No Longer Active Renzo Thornton DO Active PREDNISONE 20 MG TAB 2 tabs daily for 3 days, 1 tab daily for 3 days, 1/2 tab daily for 2 days PREDNISONE 49961053447 No Longer Active Vishal Hui MD Active CEFDINIR 300 MG CAPS by mouth twice a day CEFDINIR 54166581545 No Longer Active Vishal Hui MD Active LANSOPRAZOLE 30 MG CPDR 1 cap po qd LANSOPRAZOLE 86882211840 No Longer Active Vishal Hui MD Active TOPAMAX 25 MG TABS 1 tab po bid TOPIRAMATE 55909223167 Active Vishal Hui MD Active MINIPRESS 2 MG CAPS 1 cap po at night PRAZOSIN HCL 30552096525 Active Vishal Hui MD Active BACLOFEN 20 MG TABS 1 tab po tid BACLOFEN 64974466754 Active Vishal Hui MD Active ADVAIR DISKUS 250-50 MCG/DOSE AEPB 1 puff BID ADVAIR DISKUS 250-50 MCG/DOSE AEPB FLUTICASONE-SALMETEROL Inactive ESCITALOPRAM OXALATE 20 MG TABS 1 tab po qd ESCITALOPRAM OXALATE 20 MG TABS 763951 ESCITALOPRAM OXALATE Inactive ATENOLOL 25 MG TABS 1 tab po qd ATENOLOL 25 MG TABS 970507 ATENOLOL Inactive BENZTROPINE MESYLATE 1 MG TABS 1 tab po qd BENZTROPINE MESYLATE 1 MG TABS 770604 BENZTROPINE MESYLATE Inactive BUSPIRONE HCL 15 MG TABS 1 tab po TID BUSPIRONE HCL 15 MG TABS 400209 BUSPIRONE HCL Inactive LEVOFLOXACIN 500 MG TABS 1 tab po qd LEVOFLOXACIN 500 MG TABS 690452 LEVOFLOXACIN Inactive PREDNISONE 20 MG TABS 1 tab po qd PREDNISONE 20 MG TABS 715287 PREDNISONE Inactive MIRALAX POWD 1 capfull once daily MIRALAX POWD 795431 POLYETHYLENE GLYCOL 3350 Inactive VERAPAMIL HCL ER 180 MG CR-TABS 1 tab po bid VERAPAMIL HCL ER 180 MG CR-TABS VERAPAMIL HCL Inactive LORATADINE 10 MG TABS 1 tab po qd LORATADINE 10 MG TABS 262828 LORATADINE Inactive LYRICA 50 MG CAPS 1 tab po TID LYRICA 50 MG CAPS PREGABALIN Inactive ZALEPLON 10 MG CAPS 1 cap po every other night ZALEPLON 10 MG CAPS 749259 ZALEPLON Inactive SAPHRIS 5 MG SUBL 1 tab po qd SAPHRIS 5 MG SUBL ASENAPINE MALEATE Inactive TRAZODONE HCL 50 MG TABS 1/2 tab po qd prn for anxiety TRAZODONE HCL 50 MG TABS 300017 TRAZODONE HCL Inactive LATUDA 20 MG TABS Take one by mouth daily LATUDA 20 MG TABS LURASIDONE HCL Inactive LISINOPRIL 20 MG TABS 1 tab po qd LISINOPRIL 20 MG TABS 320658 LISINOPRIL Inactive SAPHRIS 10 MG SUBL 1 [...] po q hs MELATONIN 3 MG CAPS 029741 MELATONIN Inactive KEFLEX 500 MG ORAL CAPS 1 cap QID by mouth KEFLEX 500 MG ORAL CAPS 578214 CEPHALEXIN Inactive CLINDAMYCIN HCL 150 MG CAPS 1 four times a day CLINDAMYCIN HCL 150 MG CAPS 429708 CLINDAMYCIN HCL Inactive CEFDINIR 300 MG CAPS by mouth twice a day CEFDINIR 300 MG CAPS 517927 CEFDINIR Inactive PREDNISONE 20 MG TAB 2 tabs daily for 3 days, 1 tab daily for 3 days, 1/2 tab daily for 2 days PREDNISONE 20 MG TAB 401339 PREDNISONE Inactive BACTRIM DS 800-160 MG TABS 1 po BID x 7 days BACTRIM DS 800-160 MG TABS SULFAMETHOXAZOLE-TRIMETHOPRIM Inactive DIFLUCAN 150 MG TABS 1 pill every other day x 2 doses DIFLUCAN 150 MG TABS 512260 FLUCONAZOLE Inactive Vital Signs Date Name Value [...] ... - Chemistry sodium, serum 140 mmol/L 133-947 3958/05/28 potassium, serum 4.2 mmol/L 3.5-5.2 chloride, serum [...] Panel - Chemistry sodium, serum 141 mmol/L 614-868 9937 potassium, serum 4.3 mmol/L 3.5-5.2 chloride, serum [...] Panel - Chemistry sodium, serum 139 mmol/L 522-192 9081/12/31 potassium, serum 4.8 mmol/L 3.5-5.2 chloride, serum 106 mmol/L 98-107 carbon dioxide, venous blood 24.3 mmol/L 21.0-32.0 blood glucose 90 mg/dL 65-110 urea nitrogen, blood 16 mg/dL 7-18 creatinine, serum 1.00 mg/dL 0.60-1.30 alanine aminotransferase (SGPT), serum 41 U/L 12-78 aspartate aminotransferase (SGOT), serum 17 U/L 15-37 calcium, serum 8.6 mg/dL 8.5-10.1 bilirubin, serum, total 0.30 mg/dL 0.00-1.00 cholesterol, serum 108 mg/dL 147-925 5655/12/31 triglyceride, serum, fasting 120 mg/dL 30-200 HDL [...] semiquantitative 7.0 5.0-8.5 Lab Report: Varicella-Zoater Inga IgG,IgM/01054, HEP Be Antibody/556, RUB ... - Serology rubella antibody, serum, IgG 2.88 Encounters Code Encounter Date Provider Facility [facility]-90076 Level 4 Est. Patient 13:59:09 CDT Neeraj Collins MD [facility]-26779 Level 3 Est. Patient 15:19:43 CDT Renzo Thornton DO [facility] CPT-07924 Level 3 Est. Patient 18:10:26 CDT Sahara Rodriguez MD PhD [facility]-73993 Level 3 Est. Patient 14:49:50 CDT Vishal Hui MD [facility] CPT-76011 Level 4 Est. Patient 18:41:46 CDT Neeraj Collins MD [facility] CPT-82323 Level 4 Est. Patient 09:18:38 PLASTIC PROCESS TECHNICIAN Vishal Hui MD [facility]-31317 Level 3 Est. Patient 14:43:55 PLASTIC PROCESS TECHNICIAN Vishal Hui MD [facility]-05218 Level 3 Est. Patient 15:26:33 PLASTIC PROCESS TECHNICIAN Sahara Rodriguez MD PhD [facility] CPT-52286 Level 3 Est. Patient 10:32:14 PLASTIC PROCESS TECHNICIAN Vishal Hui MD [facility] CPT-56680 Level 3 Est. Patient 15:12:52 PLASTIC PROCESS TECHNICIAN Vishal Hui MD [facility] CPT-44535 Level 4 Est. Patient 09:19:27 CDT Vishal Hui MD [facility] CPT-39817 Level 3 Est. Patient 15:53:00 CDT Renzo Thornton [facility] CPT-87449 Level 3 Est. Patient 15:50:30 CDT Renzo Thornton [facility] CPT-75187 Level 3 Est. Patient 16:55:24 CDT Vishal Hui MD [facility] Procedures Code Procedure Name Date Entry Date Standard Description CPT-J3420 Vitamin B12 1000mcg (Cyanocobalamin) 08:27:05 CDT 08/20 CPT-25497 Abx/Therapy Injection 08:27:05 CDT CPT-06656 Recombivax HB Injection Suspension 5 MCG/0.5ML 10:00:41 CDT CPT-33912 Administration single or combination vaccine inc oral 10 :00:41 CDT CPT-72576 Sono transvag pelvis non OB uterus ovaries cervix 16:36: 57 CDT CPT-43050 LS spine comp w obliq 09:50:55 PLASTIC PROCESS TECHNICIAN CPT-77322 Abd compl w upright 09:50:55 PLASTIC PROCESS TECHNICIAN CPT-J1100 Decadron 4mg (Dexamethasone) 15:51:24 PLASTIC PROCESS TECHNICIAN CPT-J1030 Depo Medrol 40 mg (Methyl Prednisolone Acetate) 15:51: 24 PLASTIC PROCESS TECHNICIAN CPT-09800 Abx/Therapy Injection 15:51:24 PLASTIC PROCESS TECHNICIAN CPT-J1100 Decadron 4mg (Dexamethasone) 15:26:33 PLASTIC PROCESS TECHNICIAN CPT-J1030 Depo Medrol 40 mg (Methyl Prednisolone Acetate) 15:26: 33 PLASTIC PROCESS TECHNICIAN CPT-03933 Sono retroperitoneal complete kidneys and bladder 17:15: 30 CDT CPT-53810 Abd compl w upright 16:09:25 CDT CPT-J1100 Decadron 8mg (Dexamethasone) 17:07:57 CDT CPT-67101 Abx/Therapy Injection 17:07:57 CDT CPT-J1100 Decadron 8mg (Dexamethasone) 16:55:24 CDT CPT-37141 Chest 2V Frontal and Lat 16:32:44 CDT
--- OUTSIDE RECORDS SUMMARY | 2016-11-04 20:18 | XMS REPORT | Clinical Summary ---
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 LAMOTRIGINE 17558447602 Active Ahmet Carbajal MD Active PREDNISONE 20 MG TABS 2 daily for 5 days then 1 daily for 5 days PREDNISONE 04277136496 No Longer Active Ahmet Carbajal MD Active FLUTICASONE PROPIONATE 50 MCG/ACT SUSP 1 to 2 sprays each nostril daily for allergies FLUTICASONE PROPIONATE 18079091209 Active Tila Valenzuela Active GUAIFENESIN-CODEINE 100-10 MG/5ML SYRP 5ml every 4 to 6 hours as needed for cough GUAIFENESIN-CODEINE 56277684513 Active Ahmet Carbajal MD Active BENADRYL 25 MG CAP 4 po at bedtime for insomnia DIPHENHYDRAMINE HCL 35017654494 No Longer Active Ahmet Carbajal MD Active ADVAIR DISKUS 250-50 MCG/DOSE INH AEPB 1 puff twice a day for asthma FLUTICASONE-SALMETEROL 34347371686 No Longer Active Ahmet Carbajal MD Active KLONOPIN 1 MG ORAL TABS 1 tab po TID CLONAZEPAM 09451618039 No Longer Active Ahmet Carbajal MD Active ABILIFY MAINTENA 400 MG IM SUSR 400mg injection every 26 days ARIPIPRAZOLE 20073766537 No Longer Active Ahmet Carbajal MD Active HALOPERIDOL 10 MG ORAL TABS 1 tab q.d HALOPERIDOL 91375232683 Active Ahmet Carbajal MD Active ASPIRIN 325 MG ORAL TABS 1 tab q.d ASPIRIN 90489883745 Active Ahmet Carbajal MD Active TRAMADOL HCL 50 MG TABS 1/2-1 tab TID PRN TRAMADOL HCL 27434232420 No Longer Active Ahmet Carbajal MD Active BACTRIM DS 800-160 MG TABS 1 twice a day SULFAMETHOXAZOLE- TRIMETHOPRIM 13285923129 No Longer Active Ahmet Carbajal MD Active PROAIR HFA 108 (90 BASE) MCG/ACT AERS 2 puffs four times a day as needed 2015 ALBUTEROL SULFATE 15961355406 Active Ahmet Carbajal MD Active EQ NICOTINE 21 MG/24HR TRANS PT24 Apply daily to stop smoking NICOTINE 45563210866 Active Ahmet Carbajal MD Active MONISTAT 7 COMBO PACK WOODROW 100 & 2 MG-% (9GM) VAG KIT 1 applicatorful per vagina q pm x 7 MICONAZOLE NITRATE 68573049418 No Longer Active Ahmet Carbajal MD Active FLAGYL 500 MG TAB 1 tablet by mouth bid METRONIDAZOLE 93314109777 No Longer Active Ahmet Carbajal MD Active OXYCODONE HCL ER 10 MG ORAL T12A 1/2 tab by mouth every 4 hours prn OXYCODONE HCL 14468880889 No Longer Active Ahmet Carbajal MD Active METHYLPREDNISOLONE 4 MG ORAL TABS po daily METHYLPREDNISOLONE 33013846941 No Longer Active Ahmet Carbajal MD Active LEVOFLOXACIN 500 MG ORAL TABS po daily LEVOFLOXACIN 74995993924 No Longer Active Ahmet Carbajal MD Active VIIBRYD 10 MG ORAL TABS Take 1 tablet once a day VILAZODONE HCL 04481035111 No Longer Active Ahmet Carbajal MD Active TOPAMAX 50 MG ORAL TABS 1 tab twice daily TOPIRAMATE 81518108009 No Longer Active Ahmet Carbajal MD Active DICLOFENAC SODIUM 50 MG TBEC 1 tablet by mouth four times daily PRN Pain 2015 DICLOFENAC SODIUM 95473202463 No Longer Active Ahmet Carbajal MD Active ADZENYS XR-ODT 6.3 MG ORAL TBED 1 tab po daily for ADHD AMPHETAMINE 19744233926 No Longer Active Ahmet Carbajal MD Active CHANTIX 1 MG TABS 1 twice a day to help quit smoking VARENICLINE TARTRATE 51697320672 No Longer Active Dipika Burgos MD Active CHANTIX STARTING MONTH EARNEST 0.5 MG X 11 & 1 MG X 42 TABS take as directed 2015 VARENICLINE TARTRATE 81341176075 No Longer Active Dipika Burgos MD Active TESSALON PERLES 100 MG CAP 1 to 2 tablets by mouth 3 times daily as needed for cough BENZONATATE 69910859848 No Longer Active Luigi Martínez APRN Active IMITREX 50 MG ORAL TABS 0.5 po x 1 PRN Headache. May repeat dose x 1 in 2 hours if needed SUMATRIPTAN SUCCINATE 45976870405 Active Ahmet Carbajal MD Active HYDROCODONE-ACETAMINOPHEN 5-325 MG TABS 1 to 2 four times a day as needed for pain use until can be seen by specialist HYDROCODONE- ACETAMINOPHEN 56554210510 No Longer Active Vishal Hui MD Active PROAIR HFA 108 (90 BASE) MCG/ACT AERS 2 puffs four times a day as needed 2015 ALBUTEROL SULFATE 33707371491 No Longer Active Vishal Hui MD Active PREDNISONE 20 MG TABS 2 daily for 5 days then 1 daily for 5 days PREDNISONE 88654340559 No Longer Active Vishal Hui MD Active ZITHROMAX Z-EARNEST 250 MG TABS 2 today and then 1 daily for 4 days AZITHROMYCIN 58678663142 No Longer Active Vishal Hui MD Active DICLOFENAC POTASSIUM TABS Take 1 tablet twice a day (pt. is not sure of the dose.) DICLOFENAC POTASSIUM TABS 85809370402 No Longer Active Vishal Hui MD Active VERAPAMIL HCL ER 120 MG ORAL CR-TABS Take 1 tablet by mouth twice a day. VERAPAMIL HCL 25356739447 Active Vishal Hui MD Active FLAGYL 500 MG TAB 1 tablet by mouth bid METRONIDAZOLE 80300037847 No Longer Active Vishal Hui MD Active FLUTICASONE PROPIONATE 50 MCG/ACT SUSP 2 sprays each nostril daily before bed. FLUTICASONE PROPIONATE 80276280866 Active Fabiola Johnson APRN Active VALIUM 5 MG TAB Take 1-2 tablets daily DIAZEPAM 79651784353 No Longer Active Fabiola Johnson APRN Active METOPROLOL TARTRATE 25 MG ORAL TABS 1/2 tablet twice daily for heart rate and blood pressure METOPROLOL TARTRATE 31139413678 No Longer Active Fabiola Johnson APRN Active MIRALAX ORAL POWD 17GMS DAILY IN WATER POLYETHYLENE GLYCOL 3350 38909406357 Active TAMARA Casey Active MIRALAX PACK 1 po qd PRN Constipation POLYETHYLENE GLYCOL 3350 42223709612 No Longer Active Ahmet Carbajal MD Active MINIPRESS 2 MG CAPS 4 cap po at night PRAZOSIN HCL 81704501068 No Longer Active Ahmet Carbajal MD Active PIROXICAM 20 MG CAPS 1 cap po qd PRN Pain PIROXICAM 73331839598 No Longer Active Ahmet Carbajal MD Active TRAMADOL HCL 50 MG TABS 1-2 po TID PRN Pain TRAMADOL HCL 81364816742 No Longer Active Ahmet Carbajal MD Active METOPROLOL TARTRATE 50 MG TAB 1 po bid METOPROLOL TARTRATE 15269103082 No Longer Active Ahmet Carbajal MD Active ABILIFY 15 MG ORAL TABS 1 tab daily ARIPIPRAZOLE 84522270439 No Longer Active Ahmet Carbajal MD Active PROZAC 20 MG ORAL CAPS 1 tab daily FLUOXETINE HCL 29881727724 No Longer Active Ahmet Carbajal MD Active AMBIEN 5 MG ORAL TABS 1 tab at bedtime ZOLPIDEM TARTRATE 68058506003 No Longer Active Ahmet Carbajal MD Active PREDNISONE 20 MG TAB 2 tabs daily for 4 days, 1 tab daily for 4 days, 1/2 tab daily for 4 days PREDNISONE 09802800015 No Longer Active Ahmet Carbajal MD Active KEFLEX 500 MG CAP 1 po TID x 10 days CEPHALEXIN 20038525357 No Longer Active Vishal Hui MD Active SAPHRIS 5 MG SUBL 1 po bid ASENAPINE MALEATE 71496440777 No Longer Active Jillina Frazell PEDIATRIC DENTAL ASSISTANT Active LATUDA 80 MG TABS Take one by mouth daily LURASIDONE HCL 51313521255 No Longer Active Jillina Frazell PEDIATRIC DENTAL ASSISTANT Active AMLODIPINE BESYLATE 5 MG TABS 1 tablet by mouth daily AMLODIPINE BESYLATE 90213692110 No Longer Active Jillina Frazell PEDIATRIC DENTAL ASSISTANT Active AMITRIPTYLINE HCL 100 MG TAB one at hs AMITRIPTYLINE HCL 47450818458 No Longer Active Vishal Hui MD Active TRAZODONE HCL 100 MG TAB take 1 at bedtime TRAZODONE HCL 20552907861 No Longer Active Vishal Hui MD Active VYVANSE 40 MG CAPS 1 daily, LISDEXAMFETAMINE DIMESYLATE 11230238489 No Longer Active Vishal Hui MD Active IBUPROFEN 600 MG TAB 1 po TID PRN IBUPROFEN 53211319450 No Longer Active Vishal Hui MD Active PROZAC 20 MG CAP Take one by mouth daily FLUOXETINE HCL 20513968208 No Longer Active Vishal Hui MD Active ZOFRAN 4 MG TABS 1 po q6hr PRN Nausea ONDANSETRON HCL Active Vishal Hui MD Active BACTRIM DS 800-160 MG TABS 1 pill by mouth twice daily SULFAMETHOXAZOLE-TRIMETHOPRIM 54771277434 No Longer Active Sahara Rodriguez MD PhD Active DIFLUCAN 150 MG TAB 1 tablet by mouth daily FLUCONAZOLE 80906157022 No Longer Active Vishal Hui MD Active TIZANIDINE HCL 4 MG TABS 1 po q6hr PRN Muscle Spasm/Back Pain TIZANIDINE HCL 16104559349 Active Vishal Hui MD Active CLINDAMYCIN HCL 150 MG CAPS 1 four times a day CLINDAMYCIN HCL 21836812019 No Longer Active Neeraj Collins MD Active KEFLEX 500 MG ORAL CAPS 1 cap QID by mouth CEPHALEXIN 92003914984 No Longer Active Neeraj Collins MD Active DIFLUCAN 150 MG TABS 1 pill every other day x 2 doses FLUCONAZOLE 98266382282 No Longer Active Sahara Rodriguez MD PhD Active MELATONIN 3 MG CAPS 2 po q hs MELATONIN 34240768815 No Longer Active Sahara Rodriguez MD PhD Active MULTIVITAMINS CAPS Take one by mouth daily MULTIPLE VITAMIN 85252324715 No Longer Active Saahra Rodriguez MD PhD Active BACTRIM DS 800-160 MG TAB 1 tab by mouth twice daily TRIMETHOPRIM-SULFAMETHOXAZOLE 14814939895 No Longer Active Sahara Rodriguez MD PhD Active [facility] PROBIOTIC ORAL CHEW 2 daily po PROBIOTIC PRODUCT 19240351509 No Longer Active Sahara Rodriguez MD PhD Active BACTRIM DS 800-160 MG TABS 1 po BID x 7 days SULFAMETHOXAZOLE-TRIMETHOPRIM 22709802522 No Longer Active Vihsal Hui MD Active CHANTIX STARTING MONTH EARNEST 0.5 MG X 11 & 1 MG X 42 TABS 0.5mg daily for 3 days , then 0.5mg BID for 4 days, then 1mg BID VARENICLINE TARTRATE 76015066257 No Longer Active TAMARA Gray Active VERAPAMIL HCL CR 120 MG TAB CR 1 po bid VERAPAMIL HCL 99661919953 No Longer Active Vishal Hui MD Active METOPROLOL SUCCINATE 50 MG TB24 1 tablet by mouth daily METOPROLOL SUCCINATE 76428482351 No Longer Active Vishal Hui MD Active SAPHRIS 10 MG SUBL 1 tab po bid ASENAPINE MALEATE 78428679166 No Longer Active Vishal Hui MD Active LISINOPRIL 20 MG TABS 1 tab po qd LISINOPRIL 31226161634 No Longer Active Vishal Hui MD Active LATUDA 20 MG TABS Take one by mouth daily LURASIDONE HCL 02552988012 No Longer Active Vishal Hui MD Active TRAZODONE HCL 50 MG TABS 1/2 tab po qd prn for anxiety TRAZODONE HCL 26516330914 No Longer Active Vishal Hui MD Active OMEPRAZOLE 20 MG TBEC 1 po q a.m. 30min prior to first food intake OMEPRAZOLE 10503575798 Active Vishal Hui MD Active RANITIDINE HCL 150 MG CAPS 1 twice a day RANITIDINE HCL 13068540228 Active Luigi Martínez APRN Active LINZESS 290 MCG CAPS Take one by mouth daily LINACLOTIDE 38585882597 No Longer Active Vishal Hui MD Active SAPHRIS 5 MG SUBL 1 tab po qd ASENAPINE MALEATE 50596225539 No Longer Active Vishal Hui MD Active ZALEPLON 10 MG CAPS 1 cap po every other night ZALEPLON 75512250357 No Longer Active Vishal Hui MD Active LYRICA 50 MG CAPS 1 tab po TID PREGABALIN 49824076174 No Longer Active Vishal Hui MD Active LORATADINE 10 MG TABS 1 tab po qd LORATADINE 94396274313 No Longer Active Vishal Hui MD Active VERAPAMIL HCL ER 180 MG CR-TABS 1 tab po bid VERAPAMIL HCL 93300891882 No Longer Active Vishal Hui MD Active MIRALAX POWD 1 capfull once daily POLYETHYLENE GLYCOL 3350 50592151224 No Longer Active Vishal Hui MD Active PREDNISONE 20 MG TABS 1 tab po qd PREDNISONE 82646777092 No Longer Active Renzo Thornton DO Active LEVOFLOXACIN 500 MG TABS 1 tab po qd LEVOFLOXACIN 06814952889 No Longer Active Renzo Thornton DO Active BUSPIRONE HCL 15 MG TABS 1 tab po TID BUSPIRONE HCL 54053710196 No Longer Active Renzo Thornton DO Active BENZTROPINE MESYLATE 1 MG TABS 1 tab po qd BENZTROPINE MESYLATE 65158893635 No Longer Active Renzo Thornton DO Active ATENOLOL 25 MG TABS 1 tab po qd ATENOLOL 80795490932 No Longer Active Renzo Thornton DO Active ESCITALOPRAM OXALATE 20 MG TABS 1 tab po qd ESCITALOPRAM OXALATE 73500955146 No Longer Active Renzo Thornton DO Active ADVAIR DISKUS 250-50 MCG/DOSE AEPB 1 puff BID FLUTICASONE-SALMETEROL 34734014582 No Longer Active Renzo Thornton DO Active PREDNISONE 20 MG TAB 2 tabs daily for 3 days, 1 tab daily for 3 days, 1/2 tab daily for 2 days PREDNISONE 54875009126 No Longer Active Vishal Hui MD Active CEFDINIR 300 MG CAPS by mouth twice a day CEFDINIR 64345375897 No Longer Active Vishal Hui MD Active LANSOPRAZOLE 30 MG CPDR 1 cap po qd LANSOPRAZOLE 19102261277 No Longer Active Vishal Hui MD Active BACLOFEN 20 MG TABS 1 tab po tid BACLOFEN 22574226466 No Longer Active Vishal Hui MD Active ADVAIR DISKUS 250-50 MCG/DOSE AEPB 1 puff BID ADVAIR DISKUS 250-50 MCG/DOSE AEPB FLUTICASONE-SALMETEROL Inactive ESCITALOPRAM OXALATE 20 MG TABS 1 tab po qd ESCITALOPRAM OXALATE 20 MG TABS 390334 ESCITALOPRAM OXALATE Inactive ATENOLOL 25 MG TABS 1 tab po qd ATENOLOL 25 MG TABS 042256 ATENOLOL Inactive BENZTROPINE MESYLATE 1 MG TABS 1 tab po qd BENZTROPINE MESYLATE 1 MG TABS 240185 BENZTROPINE MESYLATE Inactive BUSPIRONE HCL 15 MG TABS 1 tab po TID BUSPIRONE HCL 15 MG TABS 281661 BUSPIRONE HCL Inactive LEVOFLOXACIN 500 MG TABS 1 tab po qd LEVOFLOXACIN 500 MG TABS 964090 LEVOFLOXACIN Inactive PREDNISONE 20 MG TABS 1 tab po qd PREDNISONE 20 MG TABS 108426 PREDNISONE Inactive MIRALAX POWD 1 capfull once daily MIRALAX POWD 875356 POLYETHYLENE GLYCOL 3350 Inactive VERAPAMIL HCL ER 180 MG CR-TABS 1 tab po bid VERAPAMIL HCL ER 180 MG CR-TABS VERAPAMIL HCL Inactive LORATADINE 10 MG TABS 1 tab po qd LORATADINE 10 MG TABS 883437 LORATADINE Inactive LYRICA 50 MG CAPS 1 tab po TID LYRICA 50 MG CAPS PREGABALIN Inactive ZALEPLON 10 MG CAPS 1 cap po every other night ZALEPLON 10 MG CAPS 738344 ZALEPLON Inactive SAPHRIS 5 MG SUBL 1 tab po qd SAPHRIS 5 MG SUBL ASENAPINE MALEATE Inactive TRAZODONE HCL 50 MG TABS 1/2 tab po qd prn for anxiety TRAZODONE HCL 50 MG TABS 287180 TRAZODONE HCL Inactive LATUDA 20 MG TABS Take one by mouth daily LATUDA 20 MG TABS LURASIDONE HCL Inactive LISINOPRIL 20 MG TABS 1 tab po qd LISINOPRIL 20 MG TABS 201885 LISINOPRIL Inactive SAPHRIS 10 MG SUBL 1 [...] twice daily BACTRIM DS 800-160 MG TAB 616810 TRIMETHOPRIM-SULFAMETHOXAZOLE Inactive MULTIVITAMINS CAPS Take one by mouth daily MULTIVITAMINS CAPS MULTIPLE VITAMIN Inactive MELATONIN 3 MG CAPS 2 po q hs MELATONIN 3 MG CAPS 127876 MELATONIN Inactive KEFLEX 500 MG ORAL CAPS 1 cap QID by mouth KEFLEX 500 MG ORAL CAPS 172879 CEPHALEXIN Inactive CLINDAMYCIN HCL 150 MG CAPS 1 four times a day CLINDAMYCIN HCL 150 MG CAPS 19740326 CLINDAMYCIN HCL Inactive DIFLUCAN 150 MG TAB 1 tablet by mouth daily DIFLUCAN 150 MG TAB 635516 FLUCONAZOLE Inactive PROZAC 20 MG CAP Take one by mouth daily PROZAC 20 MG CAP 539017 FLUOXETINE HCL Inactive IBUPROFEN 600 MG TAB 1 po TID PRN IBUPROFEN 600 MG TAB 146780 IBUPROFEN Inactive VYVANSE 40 MG CAPS 1 daily, VYVANSE 40 MG CAPS LISDEXAMFETAMINE DIMESYLATE Inactive TRAZODONE HCL 100 MG TAB take 1 at bedtime TRAZODONE HCL 100 MG TAB 313556 TRAZODONE HCL Inactive AMITRIPTYLINE HCL 100 MG TAB one at hs AMITRIPTYLINE HCL 100 MG TAB 541599 AMITRIPTYLINE HCL Inactive AMLODIPINE BESYLATE 5 MG TABS 1 tablet by mouth daily AMLODIPINE BESYLATE 5 MG TABS 036877 AMLODIPINE BESYLATE Inactive LATUDA 80 MG TABS Take one by mouth daily LATUDA 80 MG TABS LURASIDONE HCL Inactive SAPHRIS 5 MG SUBL 1 po bid SAPHRIS 5 MG SUBL ASENAPINE MALEATE Inactive PREDNISONE 20 MG TAB 2 tabs daily for 4 days, 1 tab daily for 4 days, 1/2 tab daily for 4 days PREDNISONE 20 MG TAB 306885 PREDNISONE Inactive AMBIEN 5 MG ORAL TABS 1 tab at bedtime AMBIEN 5 MG ORAL TABS 489058 ZOLPIDEM TARTRATE Inactive PROZAC 20 MG ORAL CAPS 1 tab daily PROZAC 20 MG ORAL CAPS 153127 FLUOXETINE HCL Inactive ABILIFY 15 MG ORAL TABS 1 tab daily ABILIFY 15 MG ORAL TABS 718223 ARIPIPRAZOLE Inactive METOPROLOL TARTRATE 50 MG TAB 1 po bid METOPROLOL TARTRATE 50 MG TAB 602601 METOPROLOL TARTRATE Inactive TRAMADOL HCL 50 MG TABS 1-2 po TID PRN Pain TRAMADOL HCL 50 MG TABS 739194 TRAMADOL HCL Inactive PIROXICAM 20 MG CAPS 1 cap po qd PRN Pain PIROXICAM 20 MG CAPS 930417 PIROXICAM Inactive MINIPRESS 2 MG CAPS 4 cap po at night MINIPRESS 2 MG CAPS 313579 PRAZOSIN HCL Inactive MIRALAX PACK 1 po qd PRN Constipation MIRALAX PACK 333317 POLYETHYLENE GLYCOL 3350 Inactive METOPROLOL TARTRATE 25 MG ORAL TABS 1/2 tablet twice daily for heart rate and blood pressure METOPROLOL TARTRATE 25 MG ORAL TABS 416379 METOPROLOL TARTRATE Inactive VALIUM 5 MG TAB Take 1-2 tablets daily VALIUM 5 MG TAB 296527 DIAZEPAM Inactive FLAGYL 500 MG TAB 1 tablet by mouth bid FLAGYL 500 MG TAB 978012 METRONIDAZOLE Inactive DICLOFENAC POTASSIUM TABS Take 1 tablet twice a day (pt. is not sure of the dose.) DICLOFENAC POTASSIUM TABS DICLOFENAC POTASSIUM TABS Inactive ZITHROMAX Z-EARNEST 250 MG TABS 2 today and then 1 daily for 4 days ZITHROMAX Z-EARNEST 250 MG TABS 7110330 AZITHROMYCIN Inactive PREDNISONE 20 MG TABS 2 daily for 5 days then 1 daily for 5 days PREDNISONE 20 MG TABS 924475 PREDNISONE Inactive PROAIR HFA 108 (90 BASE) MCG/ACT AERS 2 puffs four times a day as needed 2015 PROAIR HFA 108 (90 BASE) MCG/ACT AERS ALBUTEROL SULFATE Inactive HYDROCODONE-ACETAMINOPHEN 5-325 MG TABS 1 to 2 four times a day as needed for pain use until can be seen by specialist HYDROCODONE- ACETAMINOPHEN 5-325 MG TABS 648974 HYDROCODONE-ACETAMINOPHEN Inactive TESSALON PERLES 100 MG CAP 1 to 2 tablets by mouth 3 times daily as needed for cough TESSALON PERLES 100 MG CAP 890692 BENZONATATE Inactive CHANTIX STARTING MONTH EARNEST 0.5 [...] Pain 2015 DICLOFENAC SODIUM 50 MG TBEC 444483 DICLOFENAC SODIUM Inactive TOPAMAX 50 MG ORAL TABS 1 tab twice daily TOPAMAX 50 MG ORAL TABS 259345 TOPIRAMATE Inactive VIIBRYD 10 MG ORAL TABS Take 1 tablet once a day VIIBRYD 10 MG ORAL TABS VILAZODONE HCL Inactive LEVOFLOXACIN 500 MG ORAL TABS po daily LEVOFLOXACIN 500 MG ORAL TABS 422721 LEVOFLOXACIN Inactive METHYLPREDNISOLONE 4 MG ORAL TABS po daily METHYLPREDNISOLONE 4 MG ORAL TABS 846493 METHYLPREDNISOLONE Inactive OXYCODONE HCL ER 10 MG ORAL T12A 1/2 tab by mouth every 4 hours prn OXYCODONE HCL ER 10 MG ORAL T12A OXYCODONE HCL Inactive FLAGYL 500 MG TAB 1 tablet by mouth bid FLAGYL 500 MG TAB 401563 METRONIDAZOLE Inactive MONISTAT 7 COMBO PACK WOODROW 100 & 2 MG-% (9GM) VAG KIT 1 applicatorful per vagina q pm x 7 MONISTAT 7 COMBO PACK WOODROW 100 & 2 MG-% (9GM) VAG KIT MICONAZOLE NITRATE Inactive BACTRIM DS 800-160 MG TABS 1 twice a day BACTRIM DS 800-160 MG TABS 013860 SULFAMETHOXAZOLE-TRIMETHOPRIM Inactive TRAMADOL HCL 50 MG TABS 1/2-1 tab TID PRN TRAMADOL HCL 50 MG TABS 939188 TRAMADOL HCL Inactive ABILIFY MAINTENA 400 MG IM SUSR 400mg injection every 26 days ABILIFY MAINTENA 400 MG IM SUSR ARIPIPRAZOLE Inactive KLONOPIN 1 MG ORAL TABS 1 tab po TID KLONOPIN 1 MG ORAL TABS 970182 CLONAZEPAM Inactive ADVAIR DISKUS 250-50 MCG/DOSE INH AEPB 1 puff twice a day for asthma ADVAIR DISKUS 250-50 MCG/DOSE INH AEPB FLUTICASONE- SALMETEROL Inactive BENADRYL 25 MG CAP 4 po at bedtime for insomnia BENADRYL 25 MG CAP DIPHENHYDRAMINE HCL Inactive PREDNISONE 20 MG TABS 2 daily for 5 days then 1 daily for 5 days PREDNISONE 20 MG TABS 487646 PREDNISONE Inactive HYDROCODONE-ACETAMINOPHEN 5-325 MG ORAL TABS 1 tab two times a day HYDROCODONE-ACETAMINOPHEN 5-325 MG ORAL TABS 397768 HYDROCODONE-ACETAMINOPHEN Inactive CEFDINIR 300 MG CAPS by mouth twice a day CEFDINIR 300 MG CAPS 726960 CEFDINIR Inactive PREDNISONE 20 MG TAB 2 tabs daily for 3 days, 1 tab daily for 3 days, 1/2 tab daily for 2 days PREDNISONE 20 MG TAB 670823 PREDNISONE Inactive BACTRIM DS 800-160 MG TABS 1 po BID x 7 days BACTRIM DS 800-160 MG TABS 19820521 SULFAMETHOXAZOLE-TRIMETHOPRIM Inactive DIFLUCAN 150 MG TABS 1 pill every other day x 2 doses DIFLUCAN 150 MG TABS 004839 FLUCONAZOLE Inactive BACTRIM DS 800-160 MG TABS 1 pill by mouth twice daily BACTRIM DS 800-160 MG TABS 245566 SULFAMETHOXAZOLE-TRIMETHOPRIM Inactive KEFLEX 500 MG CAP 1 po TID x 10 days KEFLEX 500 MG CAP 357679 CEPHALEXIN Inactive Advance Directives Directive Description Start [...] 369 10^3/MM^3 10*3/mm3 142-424 Lab Report: Chlamydia/GC [id number] - Lab chlamydia DNA probe NOT DETECTED NOT DETECTED Lab Report: Chlamydia/GC [id number] - Microbiology Neisseria gonorrhoeae DNA probe NOT DETECTED NOT DETECTED Lab Report: Comp. Metabolic Panel - Chemistry sodium, serum 142 mmol/L 180-954 9401/06/08 carbon dioxide, venous blood 27.6 mmol/L 21.0-32.0 potassium, serum 4.0 mmol/L 3.5-5.2 chloride, serum 105 mmol/L 98-107 blood glucose 95 mg/dL 65-110 urea nitrogen, blood 8 mg/dL 7-18 creatinine, serum 0.75 mg/dL 0.55-1.30 alanine aminotransferase (SGPT), serum 49 U/L - aspartate aminotransferase (SGOT), serum 28 U/L 15-37 calcium, serum 9.4 mg/dL 8.5-10.1 bilirubin, serum, total 0.30 mg/dL 0.00-1.00 sodium, serum 140 mmol/L 416-210 1971/08/08 carbon dioxide, venous blood 33.7 mmol/L 21.0-32.0 [...] mg/dL Encounters Code Encounter Date Provider Facility CPT-49206 Level 3 Est. Patient 11:47:37 MILITARY PAY TECHNICIAN Ahmet Carbajal MD [facility] CPT-65118 Level 3 Est. Patient 10:40:11 MILITARY PAY TECHNICIAN Ahmet Carbajal MD [facility] CPT-87973 Level 3 Est. Patient 15:07:06 MILITARY PAY TECHNICIAN Neeraj Collins MD [facility] CPT-35015 Level 4 Est. Patient 14:45:00 MILITARY PAY TECHNICIAN Ahmet Carbajal MD [facility] CPT-59250 Level 3 Est. Patient 13:59:59 CDT Luigi Martínez [facility] CPT-34656 Level 3 Est. Patient 18:18:53 CDT Neeraj Collins MD [facility] CPT-27490 Level 3 Est. Patient 15:50:44 CDT Vishal Hui MD [facility] CPT-86210 Level 3 Est. Patient 11:36:17 CDT Ahmet Carbajal MD [facility] CPT-61265 Level 3 Est. Patient 13:29:16 CDT Vishal Hui MD [facility] CPT-53071 Level 3 Est. Patient 14:27:52 CDT Neeraj Collins MD [facility] CPT-92145 Level 3 Est. Patient 08:56:03 CDT Luigi Martínez [facility] CPT-91151 Level 4 Est. Patient 12:11:48 CDT Fabiola Johnson [facility] CPT-71311 Level 3 New Patient 16:53:37 CDT Albert Caldera MD [facility] CPT-38646 Level 3 Est. Patient 11:25:49 CDT Renzo Thornton DO [facility] CPT-45538 Level 3 Est. Patient 15:22:01 CDT Ahmet Cabrajal MD [facility] CPT-66358 Level 4 Est. Patient 09:00:51 MILITARY PAY TECHNICIAN Vishal Hui MD [facility] CPT-37786 Level 3 Est. Patient 11:37:33 MILITARY PAY TECHNICIAN Vishal Hui MD [facility] CPT-32467 Level 3 Est. Patient 08:41:09 MILITARY PAY TECHNICIAN Vishal Hui MD [facility] CPT-36372 Level 4 Est. Patient 10:19:35 MILITARY PAY TECHNICIAN Vsihal Hui MD [facility] CPT-47289 Level 3 Est. Patient 13:35:45 CDT Vishal Hui MD [facility] CPT-89366 Level 4 Est. Patient 10:08:37 CDT Vishal Hui MD [facility] CPT-10470 Level 3 Est. Patient 11:22:10 CDT Vishal Hui MD [facility] CPT-71834 Level 3 Est. Patient 11:03:32 CDT Sahara Rodriguez MD [facility] CPT-87911 Level 3 Est. Patient 09:41:35 CDT Vishal Hui MD [facility] CPT-78697 Level 3 Est. Patient 12:00:41 CDT Neeraj Collins MD [facility] CPT-92958 Level 3 Est. Patient 09:16:24 CDT Vishal Hui MD [facility] CPT-26134 Level 4 Est. Patient 13:59:09 CDT Neeraj Collins MD [facility] CPT-00525 Level 3 Est. Patient 15:19:43 CDT Renzo Thornton DO [facility] CPT-34290 Level 3 Est. Patient 18:10:26 CDT Sahara Rodriguez MD [facility]-40748 Level 3 Est. Patient 14:49:50 CDT Vishal Hui MD [facility] CPT-17529 Level 4 Est. Patient 18:41:46 CDT Neeraj Collins MD [facility] CPT-82765 Level 4 Est. Patient 09:18:38 MILITARY PAY TECHNICIAN Vishal Hui MD [facility] CPT-27444 Level 3 Est. Patient 14:43:55 MILITARY PAY TECHNICIAN Vishal Hui MD [facility] CPT-85491 Level 3 Est. Patient 15:26:33 MILITARY PAY TECHNICIAN Sahara Rodriguez MD, PhD [facility] CPT-59768 Level 3 Est. Patient 10:32:14 MILITARY PAY TECHNICIAN Vishal Hui MD [facility] CPT-49330 Level 3 Est. Patient 15:12:52 MILITARY PAY TECHNICIAN Vishal Hui MD [facility] CPT-21013 Level 4 Est. Patient 09:19:27 CDT Vishal Hui MD [facility] CPT-98181 Level 3 Est. Patient 15:53:00 CDT Renzo Thornton [facility] CPT-09258 Level 3 Est. Patient 15:50:30 CDT Renzo Thornton [facility] CPT-57723 Level 3 Est. Patient 16:55:24 CDT Vishal Hui MD [facility] Procedures Code Procedure Name Date Entry Date Standard Description CPT-G0439 [facility] Annual Wellness Exam 09:30:58 MILITARY PAY TECHNICIAN CPT-59600 TSH - LAB USE ONLY 08:50:26 MILITARY PAY TECHNICIAN CPT-69426 CBC - LAB USE ONLY 08:50:26 MILITARY PAY TECHNICIAN CPT-14924 Venipuncture Draw Fee 08:50:26 MILITARY PAY TECHNICIAN CPT-38115 Abx/Therapy Injection 17:34:30 MILITARY PAY TECHNICIAN CPT-59046 Nexplanon Removal with Reinsertion 14:09:32 CDT CPT-J7307 Nexplanon (Implant) 14:09:32 CDT CPT-OV Office Visit 14:09:32 CDT CPT-56199 UA w micro - LAB USE ONLY 16:21:13 CDT CPT-81621 Wet Mount - LAB USE ONLY 16:21:13 CDT CPT-46142 First Vx - Ix admin for Medicare patients 14:37:47 CDT CPT-68627 Fluzone Preservative Free Intramuscular Suspension 14:37 :47 CDT CPT-08530 Abx/Therapy Injection 13:54:22 CDT CPT-15719 Abx/Therapy Injection 08:47:09 CDT CPT-71150 Abx/Therapy Injection 13:29:56 CDT CPT-54451 Abx/Therapy Injection 08:36:16 CDT CPT-83569 Wet Mount - LAB USE ONLY 17:44:58 CDT CPT-34273 UA w micro - LAB USE ONLY 17:44:58 CDT CPT-42375 CMP - LAB USE ONLY 17:44:58 CDT CPT-91781 Venipuncture Draw Fee 17:44:58 CDT CPT-63449 Cervical Min 4V - XRAY USE ONLY 09:01:40 CDT CPT-55637 Chest 2V Frontal and Lat - XRAY USE ONLY 11:06:31 CDT CPT-64525 EKG Trac and Interp - XRAY USE ONLY 11:31:43 CDT 08/26 CPT-J3420 Vitamin B12 1000mcg (Cyanocobalamin) 08:10:26 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 PAY 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 04/12 CPT-88910 Abx/Therapy Injection 08:10:26 MILITARY PAY TECHNICIAN CPT-G0438 Initial Annual Wellness Exam 19:01:01 MILITARY PAY TECHNICIAN CPT-J3420 Vitamin B12 1000mcg (Cyanocobalamin) 16:57:46 CDT 08/14 CPT-19030 Recombivax HB Injection Suspension 5 MCG/0.5ML 08:37:50 MILITARY PAY TECHNICIAN CPT-54477 Immunization Single Admin 08:37:50 MILITARY PAY TECHNICIAN CPT-J3420 Vitamin B12 1000mcg (Cyanocobalamin) 08:32:16 MILITARY PAY TECHNICIAN 03/11 CPT-72573 Abx/Therapy Injection 08:32:16 MILITARY PAY TECHNICIAN CPT-21848 Chest 2V Frontal and Lat 11:46:38 MILITARY PAY TECHNICIAN CPT-30989 Venipuncture Draw Fee 09:12:45 MILITARY PAY TECHNICIAN CPT-J3420 Vitamin B12 1000mcg (Cyanocobalamin) 08:50:15 MILITARY PAY TECHNICIAN 02/08 CPT-58770 Abx/Therapy Injection 08:50:15 MILITARY PAY TECHNICIAN CPT-Cryo Cryotherapy 10:19:35 MILITARY PAY TECHNICIAN CPT-000 Give Appropriate Flu Vaccine 09:22:16 CDT CPT-J3420 Vitamin B12 1000mcg (Cyanocobalamin) 19:08:57 CDT 01/11 CPT-09380 Abx/Therapy Injection 19:08:57 CDT CPT-J3420 Vitamin B12 1000mcg (Cyanocobalamin) 08:19:08 CDT 12/11 CPT-43890 Abx/Therapy Injection 08:19:08 CDT CPT-J3420 Vitamin B12 1000mcg (Cyanocobalamin) 14:48:00 CDT 11/09 CPT-80841 Abx/Therapy Injection 14:47:59 CDT CPT-J3420 Vitamin B12 1000mcg (Cyanocobalamin) 08:34:04 CDT 10/09 CPT-12833 Abx/Therapy Injection 08:34:04 CDT CPT-J3420 Vitamin B12 1000mcg (Cyanocobalamin) 09:18:52 CDT 09/11 CPT-39106 Abx/Therapy Injection 09:18:52 CDT CPT-J3420 Vitamin B12 1000mcg (Cyanocobalamin) 08:35:44 CDT 09/04 CPT-62474 Abx/Therapy Injection 08:35:44 CDT CPT-31136 Immunization Single Admin 11:07:16 CDT CPT-06522 Hepatitis B adult IM 11:07:16 CDT CPT-J3420 Vitamin B12 1000mcg (Cyanocobalamin) 11:00:49 CDT 08/28 CPT-J1040 Depo Medrol 80 mg (Methyl Prednisolone Acetate) 11:00: 49 CDT CPT-08636 Abx/Therapy Injection 11:00:49 CDT CPT-J1040 Depo Medrol 80 mg (Methyl Prednisolone Acetate) 09:16: 23 CDT CPT-J3420 Vitamin B12 1000mcg (Cyanocobalamin) 08:27:05 CDT 08/20 CPT-54840 Abx/Therapy Injection 08:27:05 CDT CPT-50259 Recombivax HB Injection Suspension 5 MCG/0.5ML 10:00:41 CDT CPT-08486 Administration single or combination vaccine inc oral 10 :00:41 CDT CPT-82132 Sono transvag pelvis non OB uterus ovaries cervix 16:36: 57 CDT CPT-86710 LS spine comp w obliq 09:50:55 MILITARY PAY TECHNICIAN CPT-55108 Abd compl w upright 09:50:55 MILITARY PAY TECHNICIAN CPT-J1100 Decadron 4mg (Dexamethasone) 15:51:24 MILITARY PAY TECHNICIAN CPT-J1030 Depo Medrol 40 mg (Methyl Prednisolone Acetate) 15:51: 24 MILITARY PAY TECHNICIAN CPT-65617 Abx/Therapy Injection 15:51:24 MILITARY PAY TECHNICIAN CPT-J1100 Decadron 4mg (Dexamethasone) 15:26:33 MILITARY PAY TECHNICIAN CPT-J1030 Depo Medrol 40 mg (Methyl Prednisolone Acetate) 15:26: 33 MILITARY PAY TECHNICIAN CPT-52102 Sono retroperitoneal complete kidneys and bladder 17:15: 30 CDT CPT-89953 Abd compl w upright 16:09:25 CDT CPT-J1100 Decadron 8mg (Dexamethasone) 17:07:57 CDT CPT-29234 Abx/Therapy Injection 17:07:57 CDT CPT-J1100 Decadron 8mg (Dexamethasone) 16:55:24 CDT CPT-86688 Chest 2V Frontal and Lat 16:32:44 CDT
--- OUTSIDE RECORDS SUMMARY | 2016-11-04 20:21 | XMS REPORT | Clinical Summary ---
Author Author Admin, Dereck Organization [facility] Address Unknown Phone Unavailable Allergies, Adverse Reactions, [...] sites Morbid obesity 278.01 Active Juliet Kimbrough BARTENDER MANAGER Morbid obesity 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 Active Juliet Kimbrough BARTENDER MANAGER Dependence on other enabling machines and [...] breath Nocturnal hypoxia 799.02 Active Fabiola Johnson BARTENDER MANAGER Hypoxemia Neck pain 723.1 Resolved Vishal Hui MD Cervicalgia Vaginal discharge 623.5 Resolved Vishal uHi MD Leukorrhea, not specified as infective Abdominal [...] TABS 1/2-1 tab TID PRN TRAMADOL HCL 28395865881 Active Lynda Juarezephraim ASSEMBLY STOCK SUPERVISOR Active PROAIR HFA 108 (90 BASE) MCG/ACT AERS 2 puffs four times a day as needed 2015 ALBUTEROL SULFATE 29513346149 Active Ahmet Carbajal MD Active EQ NICOTINE 21 MG/24HR TRANS PT24 Apply daily to stop smoking NICOTINE 75903804539 Active Ahmet Carbajal MD Active BACTRIM DS 800-160 MG TABS 1 twice a day SULFAMETHOXAZOLE- TRIMETHOPRIM 19019350157 Active Ahmet Carbajal MD Active ADVAIR DISKUS 250-50 MCG/DOSE INH AEPB 1 puff twice a day for asthma FLUTICASONE-SALMETEROL 35455119510 Active Ahmet Carbajal MD Active MONISTAT 7 COMBO PACK WOODROW 100 & 2 MG-% (9GM) VAG KIT 1 applicatorful per vagina q pm x 7 MICONAZOLE NITRATE 45021725800 No Longer Active Ahmet Carbajal MD Active FLAGYL 500 MG TAB 1 tablet by mouth bid METRONIDAZOLE 28489863406 No Longer Active Ahmet Carbajal MD Active OXYCODONE HCL ER 10 MG ORAL T12A 1/2 tab by mouth every 4 hours prn OXYCODONE HCL 41859159133 No Longer Active Ahmet Crabajal MD Active METHYLPREDNISOLONE 4 MG ORAL TABS po daily METHYLPREDNISOLONE 11784113805 No Longer Active Ahmet Carbajal MD Active LEVOFLOXACIN 500 MG ORAL TABS po daily LEVOFLOXACIN 20402490814 No Longer Active Ahmet Carbajal MD Active VIIBRYD 10 MG ORAL TABS Take 1 tablet once a day VILAZODONE HCL 13217680367 No Longer Active Ahmet Carbajal MD Active TOPAMAX 50 MG ORAL TABS 1 tab twice daily TOPIRAMATE 33396269285 No Longer Active Ahmet Carbajal MD Active DICLOFENAC SODIUM 50 MG TBEC 1 tablet by mouth four times daily PRN Pain 2015 DICLOFENAC SODIUM 37218429382 No Longer Active Ahmet Carbajal MD Active ADZENYS XR-ODT 6.3 MG ORAL TBED 1 tab po daily for ADHD AMPHETAMINE 04102850004 No Longer Active Ahmet Carbajal MD Active CHANTIX 1 MG TABS 1 twice a day to help quit smoking VARENICLINE TARTRATE 97241575414 No Longer Active Dipika Burgos MD Active CHANTIX STARTING MONTH EARNEST 0.5 MG X 11 & 1 MG X 42 TABS take as directed 2015 VARENICLINE TARTRATE 05234180730 No Longer Active Dipika Burgos MD Active TESSALON PERLES 100 MG CAP 1 to 2 tablets by mouth 3 times daily as needed for cough BENZONATATE 12387332713 No Longer Active Luigi Martínez BARTENDER MANAGER Active ABILIOMAR MAINTENA 400 MG IM SUSR 400mg injection every 26 days ARIPIPRAZOLE 00438293460 Active Silvia Casey ASSEMBLY STOCK SUPERVISOR Active IMITREX 50 MG ORAL TABS 0.5 po x 1 PRN Headache. May repeat dose x 1 in 2 hours if needed SUMATRIPTAN SUCCINATE 40396663221 Active Suzan Boo BARTENDER MANAGER Active HYDROCODONE-ACETAMINOPHEN 5-325 MG TABS 1 to 2 four times a day as needed for pain use until can be seen by specialist HYDROCODONE- ACETAMINOPHEN 65673168827 No Longer Active Vishal Hui MD Active PROAIR HFA 108 (90 BASE) MCG/ACT AERS 2 puffs four times a day as needed 2015 ALBUTEROL SULFATE 90512533312 No Longer Active Vishal Hui MD Active PREDNISONE 20 MG TABS 2 daily for 5 days then 1 daily for 5 days PREDNISONE 60337662978 No Longer Active Vishal Hui MD Active ZITHROMAX Z-EARNEST 250 MG TABS 2 today and then 1 daily for 4 days AZITHROMYCIN 38825377866 No Longer Active Vishal Hui MD Active DICLOFENAC POTASSIUM TABS Take 1 tablet twice a day (pt. is not sure of the dose.) DICLOFENAC POTASSIUM TABS 74436171093 No Longer Active Vishal Hui MD Active VERAPAMIL HCL ER 120 MG ORAL CR-TABS Take 1 tablet by mouth twice a day. VERAPAMIL HCL 06127597913 Active Vishal Hui MD Active FLAGYL 500 MG TAB 1 tablet by mouth bid METRONIDAZOLE 68242034827 No Longer Active Vishal Hui MD Active FLUTICASONE PROPIONATE 50 MCG/ACT SUSP 2 sprays each nostril daily before bed. FLUTICASONE PROPIONATE 46368666121 Active Fabiola Johnson APRN Active BENADRYL 25 MG CAP 4 po at bedtime for insomnia DIPHENHYDRAMINE HCL 81764192223 Active Fabiola Johnson APRN Active KLONOPIN 1 MG ORAL TABS 1 tab po TID CLONAZEPAM 35142377242 Active Fabiola Johnson APRN Active VALIUM 5 MG TAB Take 1-2 tablets daily DIAZEPAM 94821210490 No Longer Active Fabiola Johnson APRN Active METOPROLOL TARTRATE 25 MG ORAL TABS 1/2 tablet twice daily for heart rate and blood pressure METOPROLOL TARTRATE 66692446002 No Longer Active Fabiola Johnson APRN Active MIRALAX ORAL POWD 17GMS DAILY IN WATER POLYETHYLENE GLYCOL 3350 72807626994 Active Vishal Hui MD Active MIRALAX PACK 1 po qd PRN Constipation POLYETHYLENE GLYCOL 3350 06822435334 No Longer Active Ahmet Carbajal MD Active MINIPRESS 2 MG CAPS 4 cap po at night PRAZOSIN HCL 03378373613 No Longer Active Ahmet Carbajal MD Active PIROXICAM 20 MG CAPS 1 cap po qd PRN Pain PIROXICAM 07602071778 No Longer Active Ahmet Carbajal MD Active TRAMADOL HCL 50 MG TABS 1-2 po TID PRN Pain TRAMADOL HCL 75102365698 No Longer Active hAmet Carbajal MD Active METOPROLOL TARTRATE 50 MG TAB 1 po bid METOPROLOL TARTRATE 06771520026 No Longer Active Ahmet Carbajal MD Active ABILIFY 15 MG ORAL TABS 1 tab daily ARIPIPRAZOLE 61120052605 No Longer Active Ahmet Carbajal MD Active PROZAC 20 MG ORAL CAPS 1 tab daily FLUOXETINE HCL 71160598747 No Longer Active Ahmet Carbajal MD Active AMBIEN 5 MG ORAL TABS 1 tab at bedtime ZOLPIDEM TARTRATE 57930021464 No Longer Active Ahmet Carbajal MD Active PREDNISONE 20 MG TAB 2 tabs daily for 4 days, 1 tab daily for 4 days, 1/2 tab daily for 4 days PREDNISONE 26742258018 No Longer Active Ahmet Carbajal MD Active KEFLEX 500 MG CAP 1 po TID x 10 days CEPHALEXIN 95775680553 No Longer Active Vishal Hui MD Active SAPHRIS 5 MG SUBL 1 po bid ASENAPINE MALEATE 09908682810 No Longer Active Luigi Martínez APRN Active LATUDA 80 MG TABS Take one by mouth daily LURASIDONE HCL 10511471703 No Longer Active Jillina Fralebron BARTENDER MANAGER Active AMLODIPINE BESYLATE 5 MG TABS 1 tablet by mouth daily AMLODIPINE BESYLATE 61618818032 No Longer Active Jillina Fralebron BARTENDER MANAGER Active AMITRIPTYLINE HCL 100 MG TAB one at hs AMITRIPTYLINE HCL 52257171728 No Longer Active Vishal Hui MD Active TRAZODONE HCL 100 MG TAB take 1 at bedtime TRAZODONE HCL 45650588874 No Longer Active Vishal Hui MD Active VYVANSE 40 MG CAPS 1 daily, LISDEXAMFETAMINE DIMESYLATE 45454177250 No Longer Active Vishal Hui MD Active IBUPROFEN 600 MG TAB 1 po TID PRN IBUPROFEN 59832109996 No Longer Active Vishal Hui MD Active PROZAC 20 MG CAP Take one by mouth daily FLUOXETINE HCL 90709047967 No Longer Active Vishal Hui MD Active ZOFRAN 4 MG TABS 1 po q6hr PRN Nausea ONDANSETRON HCL Active Vishal Hui MD Active BACTRIM DS 800-160 MG TABS 1 pill by mouth twice daily SULFAMETHOXAZOLE-TRIMETHOPRIM 17323943489 No Longer Active Sahara Rodriguez MD PhD Active DIFLUCAN 150 MG TAB 1 tablet by mouth daily FLUCONAZOLE 50718542549 No Longer Active Vishal Hui MD Active TIZANIDINE HCL 4 MG TABS 1 po q6hr PRN Muscle Spasm/Back Pain TIZANIDINE HCL 83193466526 Active Vishla Hui MD Active CLINDAMYCIN HCL 150 MG CAPS 1 four times a day CLINDAMYCIN HCL 91359278712 No Longer Active Neeraj Collins MD Active KEFLEX 500 MG ORAL CAPS 1 cap QID by mouth CEPHALEXIN 66846681778 No Longer Active Neeraj Collins MD Active DIFLUCAN 150 MG TABS 1 pill every other day x 2 doses FLUCONAZOLE 57090582095 No Longer Active Sahara Rodriguez MD PhD Active MELATONIN 3 MG CAPS 2 po q hs MELATONIN 51845327741 No Longer Active Sahara Rodriguez MD PhD Active MULTIVITAMINS CAPS Take one by mouth daily MULTIPLE VITAMIN 85621883378 No Longer Active Sahara Rodriguez MD PhD Active BACTRIM DS 800-160 MG TAB 1 tab by mouth twice daily TRIMETHOPRIM-SULFAMETHOXAZOLE 46934880061 No Longer Active Sahara Rodriguez MD PhD Active [facility] PROBIOTIC ORAL CHEW 2 daily po PROBIOTIC PRODUCT 94554777435 No Longer Active Sahara Rodriguez MD PhD Active BACTRIM DS 800-160 MG TABS 1 po BID x 7 days SULFAMETHOXAZOLE-TRIMETHOPRIM 49768815092 No Longer Active Vishal Hui MD Active CHANTIX STARTING MONTH EARNEST 0.5 MG X 11 & 1 MG X 42 TABS 0.5mg daily for 3 days , then 0.5mg BID for 4 days, then 1mg BID VARENICLINE TARTRATE 35554840027 No Longer Active TAMARA Gray Active VERAPAMIL HCL CR 120 MG TAB CR 1 po bid VERAPAMIL HCL 73379753986 No Longer Active Vishal Hui MD Active METOPROLOL SUCCINATE 50 MG TB24 1 tablet by mouth daily METOPROLOL SUCCINATE 60524697400 No Longer Active Vishal Hui MD Active SAPHRIS 10 MG SUBL 1 tab po bid ASENAPINE MALEATE 45417743344 No Longer Active Vishal Hui MD Active LISINOPRIL 20 MG TABS 1 tab po qd LISINOPRIL 19978988236 No Longer Active Vishal Hui MD Active LATUDA 20 MG TABS Take one by mouth daily LURASIDONE HCL 07638568430 No Longer Active Vishal Hui MD Active TRAZODONE HCL 50 MG TABS 1/2 tab po qd prn for anxiety TRAZODONE HCL 61407227637 No Longer Active Vishal Hui MD Active OMEPRAZOLE 20 MG TBEC 1 po q a.m. 30min prior to first food intake OMEPRAZOLE 43961743110 Active Vishal Hui MD Active RANITIDINE HCL 150 MG CAPS 1 twice a day RANITIDINE HCL 60729047061 Active Luigi Martínez APRN Active LINZESS 290 MCG CAPS Take one by mouth daily LINACLOTIDE 82153103549 No Longer Active Vishal Hui MD Active SAPHRIS 5 MG SUBL 1 tab po qd ASENAPINE MALEATE 13586853410 No Longer Active Vishal Hui MD Active ZALEPLON 10 MG CAPS 1 cap po every other night ZALEPLON 95602894704 No Longer Active Vishal Hui MD Active LYRICA 50 MG CAPS 1 tab po TID PREGABALIN 96148671120 No Longer Active Vishal Hui MD Active LORATADINE 10 MG TABS 1 tab po qd LORATADINE 65963262605 No Longer Active Vishal Hui MD Active VERAPAMIL HCL ER 180 MG CR-TABS 1 tab po bid VERAPAMIL HCL 49482100620 No Longer Active Vishal Hui MD Active MIRALAX POWD 1 capfull once daily POLYETHYLENE GLYCOL 3350 52091533495 No Longer Active Vishal Hui MD Active PREDNISONE 20 MG TABS 1 tab po qd PREDNISONE 12208431038 No Longer Active Renzo Thornton DO Active LEVOFLOXACIN 500 MG TABS 1 tab po qd LEVOFLOXACIN 74330141259 No Longer Active Renzo Thornton DO Active BUSPIRONE HCL 15 MG TABS 1 tab po TID BUSPIRONE HCL 24870876994 No Longer Active Renzo Thornton DO Active BENZTROPINE MESYLATE 1 MG TABS 1 tab po qd BENZTROPINE MESYLATE 22969967189 No Longer Active Renzo Thornton DO Active ATENOLOL 25 MG TABS 1 tab po qd ATENOLOL 55163804549 No Longer Active Renzo Thornton DO Active ESCITALOPRAM OXALATE 20 MG TABS 1 tab po qd ESCITALOPRAM OXALATE 54703754104 No Longer Active Renzo Thornton DO Active ADVAIR DISKUS 250-50 MCG/DOSE AEPB 1 puff BID FLUTICASONE-SALMETEROL 68179889185 No Longer Active Renzo Thornton DO Active PREDNISONE 20 MG TAB 2 tabs daily for 3 days, 1 tab daily for 3 days, 1/2 tab daily for 2 days PREDNISONE 26272810201 No Longer Active Vishal Hui MD Active CEFDINIR 300 MG CAPS by mouth twice a day CEFDINIR 06011359570 No Longer Active Vishal Hui MD Active LANSOPRAZOLE 30 MG CPDR 1 cap po qd LANSOPRAZOLE 41321787235 No Longer Active Vishal Hui MD Active BACLOFEN 20 MG TABS 1 tab po tid BACLOFEN 47084339221 No Longer Active Vishal Hui MD Active ADVAIR DISKUS 250-50 MCG/DOSE AEPB 1 puff BID ADVAIR DISKUS 250-50 MCG/DOSE AEPB FLUTICASONE-SALMETEROL Inactive ESCITALOPRAM OXALATE 20 MG TABS 1 tab po qd ESCITALOPRAM OXALATE 20 MG TABS 367704 ESCITALOPRAM OXALATE Inactive ATENOLOL 25 MG TABS 1 tab po qd ATENOLOL 25 MG TABS 531463 ATENOLOL Inactive BENZTROPINE MESYLATE 1 MG TABS 1 tab po qd BENZTROPINE MESYLATE 1 MG TABS 599347 BENZTROPINE MESYLATE Inactive BUSPIRONE HCL 15 MG TABS 1 tab po TID BUSPIRONE HCL 15 MG TABS 962434 BUSPIRONE HCL Inactive LEVOFLOXACIN 500 MG TABS 1 tab po qd LEVOFLOXACIN 500 MG TABS 220064 LEVOFLOXACIN Inactive PREDNISONE 20 MG TABS 1 tab po qd PREDNISONE 20 MG TABS 256812 PREDNISONE Inactive MIRALAX POWD 1 capfull once daily MIRALAX POWD 823825 POLYETHYLENE GLYCOL 3350 Inactive VERAPAMIL HCL ER 180 MG CR-TABS 1 tab po bid VERAPAMIL HCL ER 180 MG CR-TABS VERAPAMIL HCL Inactive LORATADINE 10 MG TABS 1 tab po qd LORATADINE 10 MG TABS 769926 LORATADINE Inactive LYRICA 50 MG CAPS 1 tab po TID LYRICA 50 MG CAPS PREGABALIN Inactive ZALEPLON 10 MG CAPS 1 cap po every other night ZALEPLON 10 MG CAPS 676916 ZALEPLON Inactive SAPHRIS 5 MG SUBL 1 tab po qd SAPHRIS 5 MG SUBL ASENAPINE MALEATE Inactive TRAZODONE HCL 50 MG TABS 1/2 tab po qd prn for anxiety TRAZODONE HCL 50 MG TABS 052375 TRAZODONE HCL Inactive LATUDA 20 MG TABS Take one by mouth daily LATUDA 20 MG TABS LURASIDONE HCL Inactive LISINOPRIL 20 MG TABS 1 tab po qd LISINOPRIL 20 MG TABS 470090 LISINOPRIL Inactive SAPHRIS 10 MG SUBL 1 [...] twice daily BACTRIM DS 800-160 MG TAB 555342 TRIMETHOPRIM-SULFAMETHOXAZOLE Inactive MULTIVITAMINS CAPS Take one by mouth daily MULTIVITAMINS CAPS MULTIPLE VITAMIN Inactive MELATONIN 3 MG CAPS 2 po q hs MELATONIN 3 MG CAPS 212186 MELATONIN Inactive KEFLEX 500 MG ORAL CAPS 1 cap QID by mouth KEFLEX 500 MG ORAL CAPS 156362 CEPHALEXIN Inactive CLINDAMYCIN HCL 150 MG CAPS 1 four times a day CLINDAMYCIN HCL 150 MG CAPS 19740326 CLINDAMYCIN HCL Inactive DIFLUCAN 150 MG TAB 1 tablet by mouth daily DIFLUCAN 150 MG TAB 103507 FLUCONAZOLE Inactive PROZAC 20 MG CAP Take one by mouth daily PROZAC 20 MG CAP 542912 FLUOXETINE HCL Inactive IBUPROFEN 600 MG TAB 1 po TID PRN IBUPROFEN 600 MG TAB 299468 IBUPROFEN Inactive VYVANSE 40 MG CAPS 1 daily, VYVANSE 40 MG CAPS LISDEXAMFETAMINE DIMESYLATE Inactive TRAZODONE HCL 100 MG TAB take 1 at bedtime TRAZODONE HCL 100 MG TAB 168682 TRAZODONE HCL Inactive AMITRIPTYLINE HCL 100 MG TAB one at hs AMITRIPTYLINE HCL 100 MG TAB 075261 AMITRIPTYLINE HCL Inactive AMLODIPINE BESYLATE 5 MG TABS 1 tablet by mouth daily AMLODIPINE BESYLATE 5 MG TABS 285269 AMLODIPINE BESYLATE Inactive LATUDA 80 MG TABS Take one by mouth daily LATUDA 80 MG TABS LURASIDONE HCL Inactive SAPHRIS 5 MG SUBL 1 po bid SAPHRIS 5 MG SUBL ASENAPINE MALEATE Inactive PREDNISONE 20 MG TAB 2 tabs daily for 4 days, 1 tab daily for 4 days, 1/2 tab daily for 4 days PREDNISONE 20 MG TAB 124238 PREDNISONE Inactive AMBIEN 5 MG ORAL TABS 1 tab at bedtime AMBIEN 5 MG ORAL TABS 278102 ZOLPIDEM TARTRATE Inactive PROZAC 20 MG ORAL CAPS 1 tab daily PROZAC 20 MG ORAL CAPS 546345 FLUOXETINE HCL Inactive ABILIFY 15 MG ORAL TABS 1 tab daily ABILIFY 15 MG ORAL TABS 168248 ARIPIPRAZOLE Inactive METOPROLOL TARTRATE 50 MG TAB 1 po bid METOPROLOL TARTRATE 50 MG TAB 105696 METOPROLOL TARTRATE Inactive TRAMADOL HCL 50 MG TABS 1-2 po TID PRN Pain TRAMADOL HCL 50 MG TABS 845816 TRAMADOL HCL Inactive PIROXICAM 20 MG CAPS 1 cap po qd PRN Pain PIROXICAM 20 MG CAPS 451123 PIROXICAM Inactive MINIPRESS 2 MG CAPS 4 cap po at night MINIPRESS 2 MG CAPS 262139 PRAZOSIN HCL Inactive MIRALAX PACK 1 po qd PRN Constipation MIRALAX PACK 211267 POLYETHYLENE GLYCOL 3350 Inactive METOPROLOL TARTRATE 25 MG ORAL TABS 1/2 tablet twice daily for heart rate and blood pressure METOPROLOL TARTRATE 25 MG ORAL TABS 392828 METOPROLOL TARTRATE Inactive VALIUM 5 MG TAB Take 1-2 tablets daily VALIUM 5 MG TAB 894318 DIAZEPAM Inactive FLAGYL 500 MG TAB 1 tablet by mouth bid FLAGYL 500 MG TAB 488374 METRONIDAZOLE Inactive DICLOFENAC POTASSIUM TABS Take 1 tablet twice a day (pt. is not sure of the dose.) DICLOFENAC POTASSIUM TABS DICLOFENAC POTASSIUM TABS Inactive ZITHROMAX Z-EARNEST 250 MG TABS 2 today and then 1 daily for 4 days ZITHROMAX Z-EARNEST 250 MG TABS 4441075 AZITHROMYCIN Inactive PREDNISONE 20 MG TABS 2 daily for 5 days then 1 daily for 5 days PREDNISONE 20 MG TABS 992507 PREDNISONE Inactive PROAIR HFA 108 (90 BASE) MCG/ACT AERS 2 puffs four times a day as needed 2015 PROAIR HFA 108 (90 BASE) MCG/ACT AERS ALBUTEROL SULFATE Inactive HYDROCODONE-ACETAMINOPHEN 5-325 MG TABS 1 to 2 four times a day as needed for pain use until can be seen by specialist HYDROCODONE- ACETAMINOPHEN 5-325 MG TABS 014487 HYDROCODONE-ACETAMINOPHEN Inactive TESSALON PERLES 100 MG CAP 1 to 2 tablets by mouth 3 times daily as needed for cough TESSALON PERLES 100 MG CAP 284805 BENZONATATE Inactive CHANTIX STARTING MONTH EARNEST 0.5 [...] Pain 2015 DICLOFENAC SODIUM 50 MG TBEC 325654 DICLOFENAC SODIUM Inactive TOPAMAX 50 MG ORAL TABS 1 tab twice daily TOPAMAX 50 MG ORAL TABS 248861 TOPIRAMATE Inactive VIIBRYD 10 MG ORAL TABS Take 1 tablet once a day VIIBRYD 10 MG ORAL TABS VILAZODONE HCL Inactive LEVOFLOXACIN 500 MG ORAL TABS po daily LEVOFLOXACIN 500 MG ORAL TABS 875983 LEVOFLOXACIN Inactive METHYLPREDNISOLONE 4 MG ORAL TABS po daily METHYLPREDNISOLONE 4 MG ORAL TABS 356161 METHYLPREDNISOLONE Inactive OXYCODONE HCL ER 10 MG ORAL T12A 1/2 tab by mouth every 4 hours prn OXYCODONE HCL ER 10 MG ORAL T12A OXYCODONE HCL Inactive FLAGYL 500 MG TAB 1 tablet by mouth bid FLAGYL 500 MG TAB 464677 METRONIDAZOLE Inactive MONISTAT 7 COMBO PACK WOODROW 100 & 2 MG-% (9GM) VAG KIT 1 applicatorful per vagina q pm x 7 MONISTAT 7 COMBO PACK WOODROW 100 & 2 MG-% (9GM) VAG KIT MICONAZOLE NITRATE Inactive CEFDINIR 300 MG CAPS by mouth twice a day CEFDINIR 300 MG CAPS 576916 CEFDINIR Inactive PREDNISONE 20 MG TAB 2 tabs daily for 3 days, 1 tab daily for 3 days, 1/2 tab daily for 2 days PREDNISONE 20 MG TAB 785381 PREDNISONE Inactive BACTRIM DS 800-160 MG TABS 1 po BID x 7 days BACTRIM DS 800-160 MG TABS 871258 SULFAMETHOXAZOLE-TRIMETHOPRIM Inactive DIFLUCAN 150 MG TABS 1 pill every other day x 2 doses DIFLUCAN 150 MG TABS 504928 FLUCONAZOLE Inactive BACTRIM DS 800-160 MG TABS 1 pill by mouth twice daily BACTRIM DS 800-160 MG TABS 510706 SULFAMETHOXAZOLE-TRIMETHOPRIM Inactive KEFLEX 500 MG CAP 1 po TID x 10 days KEFLEX 500 MG CAP 158516 CEPHALEXIN Inactive Advance Directives Directive Description Start [...] % 11.6-14.8 platelet count 394 10^3/MM^3 10*3/mm3 316-195 4254/01/11 leukocyte count, blood 13.8 10^3/MM^3 10*3/mm3 4.6-10.2 [...] 379 10^3/MM^3 10*3/mm3 142-424 Lab Report: Chlamydia/GC APTIMA/[id number] - Lab chlamydia DNA probe NOT DETECTED NOT DETECTED Lab Report: Chlamydia/GC APTIMA/[id number] - Microbiology Neisseria gonorrhoeae DNA probe NOT DETECTED NOT DETECTED Lab Report: Comp. Metabolic Panel - Chemistry sodium, serum 140 mmol/L 204-197 8950/08/08 carbon dioxide, venous blood 33.7 mmol/L 21.0-32.0 potassium, serum 5.0 mmol/L 3.5-5.2 chloride, serum 103 mmol/L 98-107 blood glucose 80 mg/dL 65-110 urea nitrogen, blood 13 mg/dL 7-18 creatinine, serum 0.88 mg/dL 0.55-1.30 alanine aminotransferase (SGPT), serum 54 U/L 12-78 aspartate aminotransferase (SGOT), serum 29 U/L 15-37 calcium, serum 9.7 mg/dL 8.5-10.1 bilirubin, serum, total 0.30 mg/dL 0.00-1.00 sodium, serum 139 mmol/L 411-912 0968/01/11 carbon dioxide, venous blood 26.6 mmol/L 21.0-32.0 potassium, serum 4.1 mmol/L 3.5-5.2 chloride, serum 100 mmol/L 98-107 blood glucose 86 mg/dL 65-110 urea nitrogen, blood 16 mg/dL 7-18 creatinine, serum 1.00 mg/dL 0.55-1.30 alanine aminotransferase (SGPT), serum 48 U/L 12-78 aspartate aminotransferase (SGOT), serum 17 U/L 15-37 calcium, serum 9.1 mg/dL 8.5-10.1 bilirubin, serum, total 0.40 mg/dL 0.00-1.00 sodium, serum 142 mmol/L 642-803 3540/06/08 carbon dioxide, venous blood 27.6 mmol/L 21.0-32.0 potassium, serum 4.0 mmol/L 3.5-5.2 chloride, serum 105 mmol/L 98-107 blood glucose 95 mg/dL 65-110 urea nitrogen, blood 8 mg/dL 7-18 creatinine, serum 0.75 mg/dL 0.55-1.30 alanine aminotransferase (SGPT), serum 49 U/L 12- aspartate aminotransferase (SGOT), serum 28 U/L 15-37 calcium, serum 9.4 mg/dL 8.5-10.1 bilirubin, serum, total 0.30 mg/dL 0.00-1.00 sodium, serum 139 mmol/L 848-031 1401/12/22 carbon dioxide, venous blood 26.8 mmol/L 21.0-32.0 [...] Rate - Chemistry sodium, serum 139 mmol/L 338-428 5533/12/11 carbon dioxide, venous blood 25.4 mmol/L 21.0-32.0 [...] mg/dL Encounters Code Encounter Date Provider Facility CPT-82037 Level 3 Est. Patient 15:07:06 INSTRUCTOR KNITTING Neeraj Collins MD [facility] CPT-72601 Level 4 Est. Patient 14:45:00 INSTRUCTOR KNITTING Ahmet Carbajal MD [facility] CPT-72917 Level 3 Est. Patient 13:59:59 [facility] Est[facility] Patient 18:18:53 CDT Neeraj Collins MD [facility] CPT-32177 Level 3 Est. Patient 15:50:44 CDT Vishal Hui MD [facility] CPT-69422 Level 3 Est. Patient 11:36:17 CDT Ahmet Carbajal MD [facility] CPT-81032 Level 3 Est. Patient 13:29:16 CDT Vishal Hui MD [facility] CPT-08973 Level 3 Est. Patient 14:27:52 CDT Neeraj Collins MD [facility] CPT-53327 Level 3 Est. Patient 08:56:03 CDT [facility] CPT-[facility]68 Level 4 Est. Patient 12:11:48 CDT Fabiolaniall Johnson [facility] CPT-19008 Level 3 New Patient 16:53:37 CDT Albert Caldera MD [facility] CPT-40379 Level 3 Est. Patient 11:25:49 CDT Renzo Thornton DO [facility] CPT-83501 Level 3 Est. Patient 15:22:01 CDT Ahmet Carbajal MD [facility] CPT-62256 Level 4 Est. Patient 09:00:51 INSTRUCTOR KNITTING Vishal Hui MD [facility] CPT-03357 Level 3 Est. Patient 11:37:33 INSTRUCTOR KNITTING Vishal Hui MD [facility] CPT-30571 Level 3 Est. Patient 08:41:09 INSTRUCTOR KNITTING Vishal Hui MD [facility] CPT-08359 Level 4 Est. Patient 10:19:35 INSTRUCTOR KNITTING Vishal Hui MD [facility] CPT-79759 Level 3 Est. Patient 13:35:45 CDT Vishal Hui MD [facility] CPT-65957 Level 4 Est. Patient 10:08:37 CDT Vishal Hui MD [facility] CPT-91915 Level 3 Est. Patient 11:22:10 CDT Vishal Hui MD [facility] CPT-99384 Level 3 Est. Patient 11:03:32 CDT Sahara Rodriguez MD PhD [facility] CPT-12456 Level 3 Est. Patient 09:41:35 CDT Vishal Hui MD [facility] CPT-49419 Level 3 Est. Patient 12:00:41 CDT Neeraj Collins MD [facility] CPT-54647 Level 3 Est. Patient 09:16:24 CDT Vishal Hui MD [facility] CPT-72901 Level 4 Est. Patient 13:59:09 CDT Neeraj Collins MD [facility] CPT-55496 Level 3 Est. Patient 15:19:43 CDT Renzo Thornton [facility] CPT-32775 Level 3 Est. Patient 18:10:26 CDT Sahara Rodriguez MD PhD [facility] CPT-78481 Level 3 Est. Patient 14:49:50 CDT Vishal Hui MD [facility] CPT-82958 Level 4 Est. Patient 18:41:46 CDT Neeraj Collins MD [facility] CPT-94286 Level 4 Est. Patient 09:18:38 INSTRUCTOR KNITTING Vishal Hui MD [facility] CPT-47863 Level 3 Est. Patient 14:43:55 INSTRUCTOR KNITTING Vishal Hui MD [facility] CPT-21255 Level 3 Est. Patient 15:26:33 INSTRUCTOR KNITTING Sahara Rodriguez MD PhD [facility] CPT-90379 Level 3 Est. Patient 10:32:14 INSTRUCTOR KNITTING Vishal Hui MD [facility] CPT-05642 Level 3 Est. Patient 15:12:52 INSTRUCTOR KNITTING Vishal Hui MD [facility] CPT-31468 Level 4 Est. Patient 09:19:27 CDT Vishal Hui MD [facility] CPT-82693 Level 3 Est. Patient 15:53:00 CDT Renzo Thornton DO [facility] CPT-80345 Level 3 Est. Patient 15:50:30 CDT Renzo Thornton [facility] CPT-45871 Level 3 Est. Patient 16:55:24 CDT Vishal Hui MD [facility] Procedures Code Procedure Name Date Entry Date Standard Description CPT-72056 Abx/Therapy Injection 17:34:30 INSTRUCTOR KNITTING CPT-34675 Nexplanon Removal with Reinsertion 14:09:32 CDT CPT-J7307 Nexplanon (Implant) 14:09:32 CDT CPT-OV Office Visit 14:09:32 CDT CPT-90770 UA w micro - LAB USE ONLY 16:21:13 CDT CPT-53514 Wet Mount - LAB USE ONLY 16:21:13 CDT CPT-12369 First Vx - Ix admin for Medicare patients 14:37:47 CDT CPT-89733 Fluzone Preservative Free Intramuscular Suspension 14:37 :47 CDT CPT-10186 Abx/Therapy Injection 13:54:22 CDT CPT-40327 Abx/Therapy Injection 08:47:09 CDT CPT-89853 Abx/Therapy Injection 13:29:56 CDT CPT-58401 Abx/Therapy Injection 08:36:16 CDT CPT-19979 Wet Mount - LAB USE ONLY 17:44:58 CDT CPT-40688 UA w micro - LAB USE ONLY 17:44:58 CDT CPT-44088 CMP - LAB USE ONLY 17:44:58 CDT CPT-77131 Venipuncture Draw Fee 17:44:58 CDT CPT-19616 Cervical Min 4V - XRAY USE ONLY 09:01:40 CDT CPT-20967 Chest 2V Frontal and Lat - XRAY USE ONLY 11:06:31 CDT CPT-50377 EKG Trac and Interp - XRAY USE ONLY 11:31:43 CDT 08/26 CPT-J3420 Vitamin B12 1000mcg (Cyanocobalamin) 08:10:26 INSTRUCTOR KNITTING 04/12 CPT-31211 Abx/Therapy Injection 08:10:26 INSTRUCTOR KNITTING CPT-G0438 Initial Annual Wellness Exam 19:01:01 INSTRUCTOR KNITTING CPT-J3420 Vitamin B12 1000mcg (Cyanocobalamin) 16:57:46 CDT 08/14 CPT-46923 Recombivax HB Injection Suspension 5 MCG/0.5ML 08:37:50 INSTRUCTOR KNITTING CPT-55656 Immunization Single Admin 08:37:50 INSTRUCTOR KNITTING CPT-J3420 Vitamin B12 1000mcg (Cyanocobalamin) 08:32:16 INSTRUCTOR KNITTING 03/11 CPT-20302 Abx/Therapy Injection 08:32:16 INSTRUCTOR KNITTING CPT-86181 Chest 2V Frontal and Lat 11:46:38 INSTRUCTOR KNITTING CPT-27134 Venipuncture Draw Fee 09:12:45 INSTRUCTOR KNITTING CPT-J3420 Vitamin B12 1000mcg (Cyanocobalamin) 08:50:15 INSTRUCTOR KNITTING 02/08 CPT-78267 Abx/Therapy Injection 08:50:15 INSTRUCTOR KNITTING CPT-Cryo Cryotherapy 10:19:35 INSTRUCTOR KNITTING CPT-000 Give Appropriate Flu Vaccine 09:22:16 CDT CPT-J3420 Vitamin B12 1000mcg (Cyanocobalamin) 19:08:57 CDT 01/11 CPT-23214 Abx/Therapy Injection 19:08:57 CDT CPT-J3420 Vitamin B12 1000mcg (Cyanocobalamin) 08:19:08 CDT 12/11 CPT-40329 Abx/Therapy Injection 08:19:08 CDT CPT-J3420 Vitamin B12 1000mcg (Cyanocobalamin) 14:48:00 CDT 11/09 CPT-43479 Abx/Therapy Injection 14:47:59 CDT CPT-J3420 Vitamin B12 1000mcg (Cyanocobalamin) 08:34:04 CDT 10/09 CPT-25076 Abx/Therapy Injection 08:34:04 CDT CPT-J3420 Vitamin B12 1000mcg (Cyanocobalamin) 09:18:52 CDT 09/11 CPT-88377 Abx/Therapy Injection 09:18:52 CDT CPT-J3420 Vitamin B12 1000mcg (Cyanocobalamin) 08:35:44 CDT 09/04 CPT-33596 Abx/Therapy Injection 08:35:44 CDT CPT-41988 Immunization Single Admin 11:07:16 CDT CPT-24525 Hepatitis B adult IM 11:07:16 CDT CPT-J3420 Vitamin B12 1000mcg (Cyanocobalamin) 11:00:49 CDT 08/28 CPT-J1040 Depo Medrol 80 mg (Methyl Prednisolone Acetate) 11:00: 49 CDT CPT-28199 Abx/Therapy Injection 11:00:49 CDT CPT-J1040 Depo Medrol 80 mg (Methyl Prednisolone Acetate) 09:16: 23 CDT CPT-J3420 Vitamin B12 1000mcg (Cyanocobalamin) 08:27:05 CDT 08/20 CPT-45725 Abx/Therapy Injection 08:27:05 CDT CPT-50631 Recombivax HB Injection Suspension 5 MCG/0.5ML 10:00:41 CDT CPT-87263 Administration single or combination vaccine inc oral 10 :00:41 CDT CPT-30487 Sono transvag pelvis non OB uterus ovaries cervix 16:36: 57 CDT CPT-58407 LS spine comp w obliq 09:50:55 INSTRUCTOR KNITTING CPT-47165 Abd compl w upright 09:50:55 INSTRUCTOR KNITTING CPT-J1100 Decadron 4mg (Dexamethasone) 15:51:24 INSTRUCTOR KNITTING CPT-J1030 Depo Medrol 40 mg (Methyl Prednisolone Acetate) 15:51: 24 INSTRUCTOR KNITTING CPT-54803 Abx/Therapy Injection 15:51:24 INSTRUCTOR KNITTING CPT-J1100 Decadron 4mg (Dexamethasone) 15:26:33 INSTRUCTOR KNITTING CPT-J1030 Depo Medrol 40 mg (Methyl Prednisolone Acetate) 15:26: 33 INSTRUCTOR KNITTING CPT-68201 Sono retroperitoneal complete kidneys and bladder 17:15: 30 CDT CPT-16248 Abd compl w upright 16:09:25 CDT CPT-J1100 Decadron 8mg (Dexamethasone) 17:07:57 CDT CPT-10702 Abx/Therapy Injection 17:07:57 CDT CPT-J1100 Decadron 8mg (Dexamethasone) 16:55:24 CDT CPT-14796 Chest 2V Frontal and Lat 16:32:44 CDT
--- OUTSIDE RECORDS SUMMARY | 2016-11-04 20:23 | XMS REPORT | Clinical Summary ---
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 is not sure of the dose.) DICLOFENAC POTASSIUM TABS 10913575096 Active Ahmet Carbajal MD Active MIRALAX PACK 1 po qd PRN Constipation POLYETHYLENE GLYCOL 3350 69052199019 No Longer Active Ahmet Carbajal MD Active MINIPRESS 2 MG CAPS 4 cap po at night PRAZOSIN HCL 60434143173 No Longer Active Ahmet Carbajal MD Active PIROXICAM 20 MG CAPS 1 cap po qd PRN Pain PIROXICAM 16179373920 No Longer Active Ahmet Carbajal MD Active TRAMADOL HCL 50 MG TABS 1-2 po TID PRN Pain TRAMADOL HCL 33671795484 No Longer Active Ahmet Carbajal MD Active METOPROLOL TARTRATE 50 MG TAB 1 po bid METOPROLOL TARTRATE 13631023622 No Longer Active Ahmet Carbajal MD Active ABILIFY 15 MG ORAL TABS 1 tab daily ARIPIPRAZOLE 74700049188 No Longer Active Ahmet Carbajal MD Active PROZAC 20 MG ORAL CAPS 1 tab daily FLUOXETINE HCL 32616812442 No Longer Active Ahmet Carbajal MD Active AMBIEN 5 MG ORAL TABS 1 tab at bedtime ZOLPIDEM TARTRATE 02641390339 No Longer Active Ahmet Carbajal MD Active PREDNISONE 20 MG TAB 2 tabs daily for 4 days, 1 tab daily for 4 days, 1/2 tab daily for 4 days PREDNISONE 80844210487 No Longer Active Ahmet Carbajal MD Active KEFLEX 500 MG CAP 1 po TID x 10 days CEPHALEXIN 01682550418 No Longer Active Vishal Hui MD Active ABILIFY MAINTENA 400 MG IM SUSR Injection once per month ARIPIPRAZOLE 67704053321 Active Juliet CORPORATE TRAVEL AGENT Active IMITREX 50 MG ORAL TABS 1/2 tab every 6 hours prn SUMATRIPTAN SUCCINATE 92806414709 Active Jillina Frazell CORPORATE TRAVEL AGENT Active TOPAMAX 50 MG ORAL TABS 1 tab twice daily TOPIRAMATE 43002647030 Active Vishal Hui MD Active SAPHRIS 5 MG SUBL 1 po bid ASENAPINE MALEATE 31128325147 No Longer Active Jillina Mauricio NORIEGA Active LATUDA 80 MG TABS Take one by mouth daily LURASIDONE HCL 53350250048 No Longer Active Pacollina Mauricio NORIEGA Active AMLODIPINE BESYLATE 5 MG TABS 1 tablet by mouth daily AMLODIPINE BESYLATE 18588132351 No Longer Active Pacollina Mauricio NORIEGA Active AMITRIPTYLINE HCL 100 MG TAB one at hs AMITRIPTYLINE HCL 48562191999 No Longer Active Vishal Hui MD Active TRAZODONE HCL 100 MG TAB take 1 at bedtime TRAZODONE HCL 87674987973 No Longer Active Vishal Hui MD Active VYVANSE 40 MG CAPS 1 daily, LISDEXAMFETAMINE DIMESYLATE 27388631902 No Longer Active Vishal Hui MD Active IBUPROFEN 600 MG TAB 1 po TID PRN IBUPROFEN 27918569203 No Longer Active Vishal Hui MD Active PROZAC 20 MG CAP Take one by mouth daily FLUOXETINE HCL 97480602134 No Longer Active Vishal Hui MD Active ZOFRAN 4 MG TABS 1 po q6hr PRN Nausea ONDANSETRON HCL Active Vishal Hui MD Active BACTRIM DS 800-160 MG TABS 1 pill by mouth twice daily SULFAMETHOXAZOLE-TRIMETHOPRIM 37382586938 No Longer Active Sahara Rodriguez MD PhD Active DIFLUCAN 150 MG TAB 1 tablet by mouth daily FLUCONAZOLE 67177921226 No Longer Active Vishal Hui MD Active TIZANIDINE HCL 4 MG TABS 1 po q6hr PRN Muscle Spasm/Back Pain TIZANIDINE HCL 34611031929 Active Vishal Hui MD Active CLINDAMYCIN HCL 150 MG CAPS 1 four times a day CLINDAMYCIN HCL 77067106945 No Longer Active Neeraj Collins MD Active KEFLEX 500 MG ORAL CAPS 1 cap QID by mouth CEPHALEXIN 97372715869 No Longer Active Neeraj Collins MD Active DIFLUCAN 150 MG TABS 1 pill every other day x 2 doses FLUCONAZOLE 09178495047 No Longer Active Sahara Rodriguez MD PhD Active MELATONIN 3 MG CAPS 2 po q hs MELATONIN 12298870950 No Longer Active Sahara Rodriguez MD PhD Active MULTIVITAMINS CAPS Take one by mouth daily MULTIPLE VITAMIN 71840585485 No Longer Active Sahara Rodriguez MD PhD Active BACTRIM DS 800-160 MG TAB 1 tab by mouth twice daily TRIMETHOPRIM-SULFAMETHOXAZOLE 37426177437 No Longer Active Sahara Rodriguez MD PhD Active [facility] PROBIOTIC ORAL CHEW 2 daily po PROBIOTIC PRODUCT 35549438496 No Longer Active Sahara Rodriguez MD PhD Active BACTRIM DS 800-160 MG TABS 1 po BID x 7 days SULFAMETHOXAZOLE-TRIMETHOPRIM 83030850200 No Longer Active Vishal Hui MD Active CHANTIX STARTING MONTH EARNEST 0.5 MG X 11 & 1 MG X 42 TABS 0.5mg daily for 3 days , then 0.5mg BID for 4 days, then 1mg BID VARENICLINE TARTRATE 47897158184 No Longer Active TAMARA Gray Active VERAPAMIL HCL CR 120 MG TAB CR 1 po bid VERAPAMIL HCL 94941054304 No Longer Active Vishal Hui MD Active METOPROLOL SUCCINATE 50 MG TB24 1 tablet by mouth daily METOPROLOL SUCCINATE 38060140550 No Longer Active Vishal Hui MD Active SAPHRIS 10 MG SUBL 1 tab po bid ASENAPINE MALEATE 45680195861 No Longer Active Vishal Hui MD Active LISINOPRIL 20 MG TABS 1 tab po qd LISINOPRIL 54219202669 No Longer Active Vishal Hui MD Active BENADRYL 25 MG CAP 2 po tid prn anxiety DIPHENHYDRAMINE HCL 55435313272 Active Vishal Hui MD Active LATUDA 20 MG TABS Take one by mouth daily LURASIDONE HCL 72305218464 No Longer Active Vishal Hui MD Active TRAZODONE HCL 50 MG TABS 1/2 tab po qd prn for anxiety TRAZODONE HCL 40443144144 No Longer Active Vishal Hui MD Active OMEPRAZOLE 20 MG TBEC 1 po q a.m. 30min prior to first food intake OMEPRAZOLE 07672436051 Active Vishal Hui MD Active RANITIDINE HCL 150 MG CAPS 1 twice a day RANITIDINE HCL 03387177028 Active Vishal Hui MD Active LINZESS 290 MCG CAPS Take one by mouth daily LINACLOTIDE 96971001343 No Longer Active Vishal Hui MD Active SAPHRIS 5 MG SUBL 1 tab po qd ASENAPINE MALEATE 14895980801 No Longer Active Vishal Hui MD Active ZALEPLON 10 MG CAPS 1 cap po every other night ZALEPLON 93554878624 No Longer Active Vishal Hui MD Active LYRICA 50 MG CAPS 1 tab po TID PREGABALIN 29703556369 No Longer Active Vishal Hui MD Active LORATADINE 10 MG TABS 1 tab po qd LORATADINE 98179389101 No Longer Active Vishal Hui MD Active VERAPAMIL HCL ER 180 MG CR-TABS 1 tab po bid VERAPAMIL HCL 19470863093 No Longer Active Vishal Hui MD Active MIRALAX POWD 1 capfull once daily POLYETHYLENE GLYCOL 3350 03000593692 No Longer Active Vishal Hui MD Active PREDNISONE 20 MG TABS 1 tab po qd PREDNISONE 20446639247 No Longer Active Renzo Thornton DO Active LEVOFLOXACIN 500 MG TABS 1 tab po qd LEVOFLOXACIN 01514175351 No Longer Active Renzo Thornton DO Active BUSPIRONE HCL 15 MG TABS 1 tab po TID BUSPIRONE HCL 51735243360 No Longer Active Renzo Thornton DO Active BENZTROPINE MESYLATE 1 MG TABS 1 tab po qd BENZTROPINE MESYLATE 52811652693 No Longer Active Renzo Thornton DO Active ATENOLOL 25 MG TABS 1 tab po qd ATENOLOL 80090351537 No Longer Active Renzo Thornton DO Active ESCITALOPRAM OXALATE 20 MG TABS 1 tab po qd ESCITALOPRAM OXALATE 08060779191 No Longer Active Renzo Thornton DO Active ADVAIR DISKUS 250-50 MCG/DOSE AEPB 1 puff BID FLUTICASONE-SALMETEROL 83497210099 No Longer Active Renzo Thornton DO Active PREDNISONE 20 MG TAB 2 tabs daily for 3 days, 1 tab daily for 3 days, 1/2 tab daily for 2 days PREDNISONE 20835379714 No Longer Active Vishal Hui MD Active CEFDINIR 300 MG CAPS by mouth twice a day CEFDINIR 37133780256 No Longer Active Vishal Hui MD Active LANSOPRAZOLE 30 MG CPDR 1 cap po qd LANSOPRAZOLE 04773806313 No Longer Active Vishal Hui MD Active BACLOFEN 20 MG TABS 1 tab po tid BACLOFEN 15034023777 No Longer Active Vishal Hui MD Active ADVAIR DISKUS 250-50 MCG/DOSE AEPB 1 puff BID ADVAIR DISKUS 250-50 MCG/DOSE AEPB FLUTICASONE-SALMETEROL Inactive ESCITALOPRAM OXALATE 20 MG TABS 1 tab po qd ESCITALOPRAM OXALATE 20 MG TABS 800428 ESCITALOPRAM OXALATE Inactive ATENOLOL 25 MG TABS 1 tab po qd ATENOLOL 25 MG TABS 379664 ATENOLOL Inactive BENZTROPINE MESYLATE 1 MG TABS 1 tab po qd BENZTROPINE MESYLATE 1 MG TABS 531872 BENZTROPINE MESYLATE Inactive BUSPIRONE HCL 15 MG TABS 1 tab po TID BUSPIRONE HCL 15 MG TABS 787736 BUSPIRONE HCL Inactive LEVOFLOXACIN 500 MG TABS 1 tab po qd LEVOFLOXACIN 500 MG TABS 503486 LEVOFLOXACIN Inactive PREDNISONE 20 MG TABS 1 tab po qd PREDNISONE 20 MG TABS 155990 PREDNISONE Inactive MIRALAX POWD 1 capfull once daily MIRALAX POWD 560601 POLYETHYLENE GLYCOL 3350 Inactive VERAPAMIL HCL ER 180 MG CR-TABS 1 tab po bid VERAPAMIL HCL ER 180 MG CR-TABS VERAPAMIL HCL Inactive LORATADINE 10 MG TABS 1 tab po qd LORATADINE 10 MG TABS 690190 LORATADINE Inactive LYRICA 50 MG CAPS 1 tab po TID LYRICA 50 MG CAPS PREGABALIN Inactive ZALEPLON 10 MG CAPS 1 cap po every other night ZALEPLON 10 MG CAPS 680605 ZALEPLON Inactive SAPHRIS 5 MG SUBL 1 tab po qd SAPHRIS 5 MG SUBL ASENAPINE MALEATE Inactive TRAZODONE HCL 50 MG TABS 1/2 tab po qd prn for anxiety TRAZODONE HCL 50 MG TABS 490985 TRAZODONE HCL Inactive LATUDA 20 MG TABS Take one by mouth daily LATUDA 20 MG TABS LURASIDONE HCL Inactive LISINOPRIL 20 MG TABS 1 tab po qd LISINOPRIL 20 MG TABS 181447 LISINOPRIL Inactive SAPHRIS 10 MG SUBL 1 [...] twice daily BACTRIM DS 800-160 MG TAB 438123 TRIMETHOPRIM-SULFAMETHOXAZOLE Inactive MULTIVITAMINS CAPS Take one by mouth daily MULTIVITAMINS CAPS MULTIPLE VITAMIN Inactive MELATONIN 3 MG CAPS 2 po q hs MELATONIN 3 MG CAPS 284606 MELATONIN Inactive KEFLEX 500 MG ORAL CAPS 1 cap QID by mouth KEFLEX 500 MG ORAL CAPS 712534 CEPHALEXIN Inactive CLINDAMYCIN HCL 150 MG CAPS 1 four times a day CLINDAMYCIN HCL 150 MG CAPS 19740326 CLINDAMYCIN HCL Inactive DIFLUCAN 150 MG TAB 1 tablet by mouth daily DIFLUCAN 150 MG TAB 189775 FLUCONAZOLE Inactive PROZAC 20 MG CAP Take one by mouth daily PROZAC 20 MG CAP 715166 FLUOXETINE HCL Inactive IBUPROFEN 600 MG TAB 1 po TID PRN IBUPROFEN 600 MG TAB 378181 IBUPROFEN Inactive VYVANSE 40 MG CAPS 1 daily, VYVANSE 40 MG CAPS LISDEXAMFETAMINE DIMESYLATE Inactive TRAZODONE HCL 100 MG TAB take 1 at bedtime TRAZODONE HCL 100 MG TAB 729161 TRAZODONE HCL Inactive AMITRIPTYLINE HCL 100 MG TAB one at hs AMITRIPTYLINE HCL 100 MG TAB 139483 AMITRIPTYLINE HCL Inactive AMLODIPINE BESYLATE 5 MG TABS 1 tablet by mouth daily AMLODIPINE BESYLATE 5 MG TABS 109985 AMLODIPINE BESYLATE Inactive LATUDA 80 MG TABS Take one by mouth daily LATUDA 80 MG TABS LURASIDONE HCL Inactive SAPHRIS 5 MG SUBL 1 po bid SAPHRIS 5 MG SUBL ASENAPINE MALEATE Inactive PREDNISONE 20 MG TAB 2 tabs daily for 4 days, 1 tab daily for 4 days, 1/2 tab daily for 4 days PREDNISONE 20 MG TAB 321321 PREDNISONE Inactive AMBIEN 5 MG ORAL TABS 1 tab at bedtime AMBIEN 5 MG ORAL TABS 450300 ZOLPIDEM TARTRATE Inactive PROZAC 20 MG ORAL CAPS 1 tab daily PROZAC 20 MG ORAL CAPS 004444 FLUOXETINE HCL Inactive ABILIFY 15 MG ORAL TABS 1 tab daily ABILIFY 15 MG ORAL TABS 846526 ARIPIPRAZOLE Inactive METOPROLOL TARTRATE 50 MG TAB 1 po bid METOPROLOL TARTRATE 50 MG TAB 756626 METOPROLOL TARTRATE Inactive TRAMADOL HCL 50 MG TABS 1-2 po TID PRN Pain TRAMADOL HCL 50 MG TABS 033779 TRAMADOL HCL Inactive PIROXICAM 20 MG CAPS 1 cap po qd PRN Pain PIROXICAM 20 MG CAPS 252107 PIROXICAM Inactive MINIPRESS 2 MG CAPS 4 cap po at night MINIPRESS 2 MG CAPS 820384 PRAZOSIN HCL Inactive MIRALAX PACK 1 po qd PRN Constipation MIRALAX PACK 770113 POLYETHYLENE GLYCOL 3350 Inactive CEFDINIR 300 MG CAPS by mouth twice a day CEFDINIR 300 MG CAPS 393696 CEFDINIR Inactive PREDNISONE 20 MG TAB 2 tabs daily for 3 days, 1 tab daily for 3 days, 1/2 tab daily for 2 days PREDNISONE 20 MG TAB 115297 PREDNISONE Inactive BACTRIM DS 800-160 MG TABS 1 po BID x 7 days BACTRIM DS 800-160 MG TABS 611362 SULFAMETHOXAZOLE-TRIMETHOPRIM Inactive DIFLUCAN 150 MG TABS 1 pill every other day x 2 doses DIFLUCAN 150 MG TABS 335770 FLUCONAZOLE Inactive BACTRIM DS 800-160 MG TABS 1 pill by mouth twice daily BACTRIM DS 800-160 MG TABS 739631 SULFAMETHOXAZOLE-TRIMETHOPRIM Inactive KEFLEX 500 MG CAP 1 po TID x 10 days KEFLEX 500 MG CAP 009243 CEPHALEXIN Inactive Advance Directives Directive Description Start [...] % 11.6-14.8 platelet count 394 10^3/MM^3 10*3/mm3 329-342 9904/01/11 leukocyte count, blood 13.8 10^3/MM^3 10*3/mm3 4.6-10.2 [...] Panel - Chemistry sodium, serum 139 mmol/L 066-408 7460/12/03 carbon dioxide, venous blood 28.5 mmol/L 21.0-32.0 [...] 5.5 % 4.3-6.0 cholesterol, serum 159 mg/dL 533-319 1341/12/03 triglyceride, serum, fasting 118 mg/dL 30-200 HDL [...] Panel - Chemistry sodium, serum 139 mmol/L 088-094 4141/12/22 carbon dioxide, venous blood 26.8 mmol/L 21.0-32.0 potassium, serum 4.2 mmol/L 3.5-5.2 chloride, serum 103 mmol/L 98-107 blood glucose 115 mg/dL 65-110 urea nitrogen, blood 20 mg/dL 7-18 creatinine, serum 0.90 mg/dL 0.55-1.30 alanine aminotransferase (SGPT), serum 38 U/L 12-78 aspartate aminotransferase (SGOT), serum 19 U/L 15-37 calcium, serum 8.6 mg/dL 8.5-10.1 bilirubin, serum, total 0.30 mg/dL 0.00-1.00 sodium, serum 139 mmol/L 658-234 5432/01/11 carbon dioxide, venous blood 26.6 mmol/L 21.0-32.0 potassium, serum 4.1 mmol/L 3.5-5.2 chloride, serum 100 mmol/L 98-107 blood glucose 86 mg/dL 65-110 urea nitrogen, blood 16 mg/dL 7-18 creatinine, serum 1.00 mg/dL 0.55-1.30 alanine aminotransferase (SGPT), serum 48 U/L - aspartate aminotransferase (SGOT), serum 17 U/L 15-37 calcium, serum 9.1 mg/dL 8.5-10.1 bilirubin, serum, total 0.40 mg/dL 0.00-1.00 sodium, serum 142 mmol/L 244-893 0468/06/08 carbon dioxide, venous blood 27.6 mmol/L 21.0-32.0 [...] Rate - Chemistry sodium, serum 139 mmol/L 792-316 6643/12/11 carbon dioxide, venous blood 25.4 mmol/L 21.0-32.0 [...] 5.0-8.5 Encounters Code Encounter Date Provider Facility CPT-70615 Level 3 New Patient 16:53:37 CDT Albert Caldera MD [facility] CPT-33049 Level 3 Est. Patient 11:25:49 CDT Renzo Thornton DO [facility] CPT-07507 Level 3 Est. Patient 15:22:01 CDT Ahmet Carbajal MD [facility] CPT-29070 Level 4 Est. Patient 09:00:51 INTEL RECRUITER Vishal Hui MD [facility] CPT-37311 Level 3 Est. Patient 11:37:33 INTEL RECRUITER Vishal Hui MD [facility] CPT-49522 Level 3 Est. Patient 08:41:09 INTEL RECRUITER Vishal Hui MD [facility] CPT-88289 Level 4 Est. Patient 10:19:35 INTEL RECRUITER Vishal Hui MD [facility] CPT-87430 Level 3 Est. Patient 13:35:45 CDT Vishal Hui MD [facility] CPT-47992 Level 4 Est. Patient 10:08:37 CDT Vishal Hui MD [facility]-97277 Level 3 Est. Patient 11:22:10 CDT Vishal Hui MD [facility] CPT-73634 Level 3 Est. Patient 11:03:32 CDT Sahara Rodriguez MD [facility]-09380 Level 3 Est. Patient 09:41:35 CDT Vishal Hui MD [facility]-26268 Level 3 Est. Patient 12:00:41 CDT Neeraj Collins MD [facility] CPT-25737 Level 3 Est. Patient 09:16:24 CDT Vishal Hui MD [facility]-03201 Level 4 Est. Patient 13:59:09 CDT Neeraj Collins MD [facility]-55594 Level 3 Est. Patient 15:19:43 CDT Renzo Thornton DO [facility] CPT-77661 Level 3 Est. Patient 18:10:26 CDT Sahara Rodriguez MD [facility]-64501 Level 3 Est. Patient 14:49:50 CDT Vishal Hui MD [facility]-54528 Level 4 Est. Patient 18:41:46 CDT Neeraj Collins MD [facility]-51762 Level 4 Est. Patient 09:18:38 INTEL RECRUITER Vishal Hui MD [facility]-87891 Level 3 Est. Patient 14:43:55 INTEL RECRUITER Vishal Hui MD [facility]-47687 Level 3 Est. Patient 15:26:33 INTEL RECRUITER Sahara Rodriguez MD [facility]-32003 Level 3 Est. Patient 10:32:14 INTEL RECRUITER Vishal Hui MD [facility]-38714 Level 3 Est. Patient 15:12:52 INTEL RECRUITER Vishal Hui MD [facility] CPT-66049 Level 4 Est. Patient 09:19:27 CDT Vishal Hui MD [facility] CPT-01919 Level 3 Est. Patient 15:53:00 CDT Renzo Thornton [facility] CPT-19154 Level 3 Est. Patient 15:50:30 CDT Renzo Thornton [facility] CPT-02519 Level 3 Est. Patient 16:55:24 CDT Vishal Hui MD [facility] Procedures Code Procedure Name Date Entry Date Standard Description CPT-65565 EKG Trac and Interp - XRAY USE ONLY 11:31:43 CDT 08/26 CPT-J3420 Vitamin B12 1000mcg (Cyanocobalamin) 08:10:26 INTEL RECRUITER 04/12 CPT-81918 Abx/Therapy Injection 08:10:26 INTEL RECRUITER CPT-G0438 Initial Annual Wellness Exam 19:01:01 INTEL RECRUITER CPT-J3420 Vitamin B12 1000mcg (Cyanocobalamin) 16:57:46 CDT 08/14 CPT-83731 Recombivax HB Injection Suspension 5 MCG/0.5ML 08:37:50 INTEL RECRUITER CPT-93589 Immunization Single Admin 08:37:50 INTEL RECRUITER CPT-J3420 Vitamin B12 1000mcg (Cyanocobalamin) 08:32:16 INTEL RECRUITER 03/11 CPT-12062 Abx/Therapy Injection 08:32:16 INTEL RECRUITER CPT-64153 Chest 2V Frontal and Lat 11:46:38 INTEL RECRUITER CPT-40332 Venipuncture Draw Fee 09:12:45 INTEL RECRUITER CPT-J3420 Vitamin B12 1000mcg (Cyanocobalamin) 08:50:15 INTEL RECRUITER 02/08 CPT-32662 Abx/Therapy Injection 08:50:15 INTEL RECRUITER CPT-Cryo Cryotherapy 10:19:35 INTEL RECRUITER CPT-000 Give Appropriate Flu Vaccine 09:22:16 CDT CPT-J3420 Vitamin B12 1000mcg (Cyanocobalamin) 19:08:57 CDT 01/11 CPT-62766 Abx/Therapy Injection 19:08:57 CDT CPT-J3420 Vitamin B12 1000mcg (Cyanocobalamin) 08:19:08 CDT 12/11 CPT-10931 Abx/Therapy Injection 08:19:08 CDT CPT-J3420 Vitamin B12 1000mcg (Cyanocobalamin) 14:48:00 CDT 11/09 CPT-33524 Abx/Therapy Injection 14:47:59 CDT CPT-J3420 Vitamin B12 1000mcg (Cyanocobalamin) 08:34:04 CDT 10/09 CPT-27488 Abx/Therapy Injection 08:34:04 CDT CPT-J3420 Vitamin B12 1000mcg (Cyanocobalamin) 09:18:52 CDT 09/11 CPT-57780 Abx/Therapy Injection 09:18:52 CDT CPT-J3420 Vitamin B12 1000mcg (Cyanocobalamin) 08:35:44 CDT 09/04 CPT-40396 Abx/Therapy Injection 08:35:44 CDT CPT-91065 Immunization Single Admin 11:07:16 CDT CPT-66175 Hepatitis B adult IM 11:07:16 CDT CPT-J3420 Vitamin B12 1000mcg (Cyanocobalamin) 11:00:49 CDT 08/28 CPT-J1040 Depo Medrol 80 mg (Methyl Prednisolone Acetate) 11:00: 49 CDT CPT-88513 Abx/Therapy Injection 11:00:49 CDT CPT-J1040 Depo Medrol 80 mg (Methyl Prednisolone Acetate) 09:16: 23 CDT CPT-J3420 Vitamin B12 1000mcg (Cyanocobalamin) 08:27:05 CDT 08/20 CPT-86195 Abx/Therapy Injection 08:27:05 CDT CPT-69237 Recombivax HB Injection Suspension 5 MCG/0.5ML 10:00:41 CDT CPT-15091 Administration single or combination vaccine inc oral 10 :00:41 CDT CPT-27730 Sono transvag pelvis non OB uterus ovaries cervix 16:36: 57 CDT CPT-10218 LS spine comp w obliq 09:50:55 INTEL RECRUITER CPT-99415 Abd compl w upright 09:50:55 INTEL RECRUITER CPT-J1100 Decadron 4mg (Dexamethasone) 15:51:24 INTEL RECRUITER CPT-J1030 Depo Medrol 40 mg (Methyl Prednisolone Acetate) 15:51: 24 INTEL RECRUITER CPT-21241 Abx/Therapy Injection 15:51:24 INTEL RECRUITER CPT-J1100 Decadron 4mg (Dexamethasone) 15:26:33 INTEL RECRUITER CPT-J1030 Depo Medrol 40 mg (Methyl Prednisolone Acetate) 15:26: 33 INTEL RECRUITER CPT-23283 Sono retroperitoneal complete kidneys and bladder 17:15: 30 CDT CPT-37662 Abd compl w upright 16:09:25 CDT CPT-J1100 Decadron 8mg (Dexamethasone) 17:07:57 CDT CPT-80125 Abx/Therapy Injection 17:07:57 CDT CPT-J1100 Decadron 8mg (Dexamethasone) 16:55:24 CDT CPT-17941 Chest 2V Frontal and Lat 16:32:44 CDT
--- OUTSIDE RECORDS SUMMARY | 2016-11-04 20:27 | XMS REPORT | Clinical Summary ---
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 LAMOTRIGINE 95271440787 Active Ahmet Carbajal MD Active PREDNISONE 20 MG TABS 2 daily for 5 days then 1 daily for 5 days PREDNISONE 99469152757 No Longer Active Ahmet Carbajal MD Active FLUTICASONE PROPIONATE 50 MCG/ACT SUSP 1 to 2 sprays each nostril daily for allergies FLUTICASONE PROPIONATE 38960166935 Active Tila Valenzuela Active GUAIFENESIN-CODEINE 100-10 MG/5ML SYRP 5ml every 4 to 6 hours as needed for cough GUAIFENESIN-CODEINE 76654267641 Active Ahmet Carbajal MD Active BENADRYL 25 MG CAP 4 po at bedtime for insomnia DIPHENHYDRAMINE HCL 59599785017 No Longer Active Ahmet Carbajal MD Active ADVAIR DISKUS 250-50 MCG/DOSE INH AEPB 1 puff twice a day for asthma FLUTICASONE-SALMETEROL 56285465500 No Longer Active Ahmet Carbajal MD Active KLONOPIN 1 MG ORAL TABS 1 tab po TID CLONAZEPAM 22757142509 No Longer Active Ahmet Carbajal MD Active ABILIFY MAINTENA 400 MG IM SUSR 400mg injection every 26 days ARIPIPRAZOLE 64254743981 No Longer Active Ahmet Carbajal MD Active HALOPERIDOL 10 MG ORAL TABS 1 tab q.d HALOPERIDOL 49552953928 Active Ahmet Carbajal MD Active ASPIRIN 325 MG ORAL TABS 1 tab q.d ASPIRIN 03946154875 Active Ahmet Carbajal MD Active TRAMADOL HCL 50 MG TABS 1/2-1 tab TID PRN TRAMADOL HCL 22029057856 No Longer Active Ahmet Carbajal MD Active BACTRIM DS 800-160 MG TABS 1 twice a day SULFAMETHOXAZOLE- TRIMETHOPRIM 64750696152 No Longer Active Ahmet Carbajal MD Active PROAIR HFA 108 (90 BASE) MCG/ACT AERS 2 puffs four times a day as needed 2015 ALBUTEROL SULFATE 49591887071 Active Ahmet Carbajal MD Active EQ NICOTINE 21 MG/24HR TRANS PT24 Apply daily to stop smoking NICOTINE 75397585962 Active Ahmet Carbajal MD Active MONISTAT 7 COMBO PACK WOODROW 100 & 2 MG-% (9GM) VAG KIT 1 applicatorful per vagina q pm x 7 MICONAZOLE NITRATE 46367861800 No Longer Active Ahmet Carbajal MD Active FLAGYL 500 MG TAB 1 tablet by mouth bid METRONIDAZOLE 48770039074 No Longer Active Ahmet Carbajal MD Active OXYCODONE HCL ER 10 MG ORAL T12A 1/2 tab by mouth every 4 hours prn OXYCODONE HCL 51277597483 No Longer Active Ahmet Carbajal MD Active METHYLPREDNISOLONE 4 MG ORAL TABS po daily METHYLPREDNISOLONE 58886909442 No Longer Active Ahmet Carbajal MD Active LEVOFLOXACIN 500 MG ORAL TABS po daily LEVOFLOXACIN 18208892120 No Longer Active Ahmet Carbajal MD Active VIIBRYD 10 MG ORAL TABS Take 1 tablet once a day VILAZODONE HCL 22245633499 No Longer Active Ahmet Carbajal MD Active TOPAMAX 50 MG ORAL TABS 1 tab twice daily TOPIRAMATE 51005113420 No Longer Active Ahmet Carbajal MD Active DICLOFENAC SODIUM 50 MG TBEC 1 tablet by mouth four times daily PRN Pain 2015 DICLOFENAC SODIUM 41620032473 No Longer Active Ahmet Carbajal MD Active ADZENYS XR-ODT 6.3 MG ORAL TBED 1 tab po daily for ADHD AMPHETAMINE 52351912308 No Longer Active Ahmet Carbajal MD Active CHANTIX 1 MG TABS 1 twice a day to help quit smoking VARENICLINE TARTRATE 42467911593 No Longer Active Dipika Burgos MD Active CHANTIX STARTING MONTH EARNEST 0.5 MG X 11 & 1 MG X 42 TABS take as directed 2015 VARENICLINE TARTRATE 77328180953 No Longer Active Dipika Burgos MD Active TESSALON PERLES 100 MG CAP 1 to 2 tablets by mouth 3 times daily as needed for cough BENZONATATE 84151106481 No Longer Active Luigi Martínez APRN Active IMITREX 50 MG ORAL TABS 0.5 po x 1 PRN Headache. May repeat dose x 1 in 2 hours if needed SUMATRIPTAN SUCCINATE 87998080829 Active Ahmet Carbajal MD Active HYDROCODONE-ACETAMINOPHEN 5-325 MG TABS 1 to 2 four times a day as needed for pain use until can be seen by specialist HYDROCODONE- ACETAMINOPHEN 85692523731 No Longer Active Vishal Hui MD Active PROAIR HFA 108 (90 BASE) MCG/ACT AERS 2 puffs four times a day as needed 2015 ALBUTEROL SULFATE 49374006718 No Longer Active Vishal Hui MD Active PREDNISONE 20 MG TABS 2 daily for 5 days then 1 daily for 5 days PREDNISONE 37776456089 No Longer Active Vishal Hui MD Active ZITHROMAX Z-EARNEST 250 MG TABS 2 today and then 1 daily for 4 days AZITHROMYCIN 17853565457 No Longer Active Vishal Hui MD Active DICLOFENAC POTASSIUM TABS Take 1 tablet twice a day (pt. is not sure of the dose.) DICLOFENAC POTASSIUM TABS 64762100318 No Longer Active Vishal Hui MD Active VERAPAMIL HCL ER 120 MG ORAL CR-TABS Take 1 tablet by mouth twice a day. VERAPAMIL HCL 98504554455 Active Vishal Hui MD Active FLAGYL 500 MG TAB 1 tablet by mouth bid METRONIDAZOLE 25896106267 No Longer Active Vishal Hui MD Active FLUTICASONE PROPIONATE 50 MCG/ACT SUSP 2 sprays each nostril daily before bed. FLUTICASONE PROPIONATE 96265231521 Active Fabiola Johnson APRN Active VALIUM 5 MG TAB Take 1-2 tablets daily DIAZEPAM 07782480697 No Longer Active Fabiola Johnson APRN Active METOPROLOL TARTRATE 25 MG ORAL TABS 1/2 tablet twice daily for heart rate and blood pressure METOPROLOL TARTRATE 52853442960 No Longer Active Fabiola Johnson APRN Active MIRALAX ORAL POWD 17GMS DAILY IN WATER POLYETHYLENE GLYCOL 3350 16470103960 Active TAMARA Casey Active MIRALAX PACK 1 po qd PRN Constipation POLYETHYLENE GLYCOL 3350 67521999063 No Longer Active Ahmet Carbajal MD Active MINIPRESS 2 MG CAPS 4 cap po at night PRAZOSIN HCL 92293381244 No Longer Active Ahmet Carbajal MD Active PIROXICAM 20 MG CAPS 1 cap po qd PRN Pain PIROXICAM 68318658121 No Longer Active Ahmet Carbajal MD Active TRAMADOL HCL 50 MG TABS 1-2 po TID PRN Pain TRAMADOL HCL 09992013627 No Longer Active Ahmet Carbajal MD Active METOPROLOL TARTRATE 50 MG TAB 1 po bid METOPROLOL TARTRATE 02100417508 No Longer Active Ahmet Carbajal MD Active ABILIFY 15 MG ORAL TABS 1 tab daily ARIPIPRAZOLE 21701879283 No Longer Active Ahmet Carbajal MD Active PROZAC 20 MG ORAL CAPS 1 tab daily FLUOXETINE HCL 67165136065 No Longer Active Ahmet Carbajal MD Active AMBIEN 5 MG ORAL TABS 1 tab at bedtime ZOLPIDEM TARTRATE 74330143562 No Longer Active Ahmet Carbajal MD Active PREDNISONE 20 MG TAB 2 tabs daily for 4 days, 1 tab daily for 4 days, 1/2 tab daily for 4 days PREDNISONE 65375295476 No Longer Active Ahmet Carbajal MD Active KEFLEX 500 MG CAP 1 po TID x 10 days CEPHALEXIN 21884923137 No Longer Active Vishal Hui MD Active SAPHRIS 5 MG SUBL 1 po bid ASENAPINE MALEATE 74737040101 No Longer Active Jillina Frazell ELECTRIC WELL LOGGING OPERATOR Active LATUDA 80 MG TABS Take one by mouth daily LURASIDONE HCL 92816832415 No Longer Active Jillina Frazell ELECTRIC WELL LOGGING OPERATOR Active AMLODIPINE BESYLATE 5 MG TABS 1 tablet by mouth daily AMLODIPINE BESYLATE 36193153716 No Longer Active Jillina Frazell ELECTRIC WELL LOGGING OPERATOR Active AMITRIPTYLINE HCL 100 MG TAB one at hs AMITRIPTYLINE HCL 10092198795 No Longer Active Vishal Hui MD Active TRAZODONE HCL 100 MG TAB take 1 at bedtime TRAZODONE HCL 11686463163 No Longer Active Vishal Hui MD Active VYVANSE 40 MG CAPS 1 daily, LISDEXAMFETAMINE DIMESYLATE 45607352807 No Longer Active Vishal uHi MD Active IBUPROFEN 600 MG TAB 1 po TID PRN IBUPROFEN 57406018655 No Longer Active Vishal Hui MD Active PROZAC 20 MG CAP Take one by mouth daily FLUOXETINE HCL 34571030550 No Longer Active Vishal Hui MD Active ZOFRAN 4 MG TABS 1 po q6hr PRN Nausea ONDANSETRON HCL Active Vishal Hui MD Active BACTRIM DS 800-160 MG TABS 1 pill by mouth twice daily SULFAMETHOXAZOLE-TRIMETHOPRIM 86259748752 No Longer Active Sahara Rodriguez MD PhD Active DIFLUCAN 150 MG TAB 1 tablet by mouth daily FLUCONAZOLE 03044699906 No Longer Active Vishal Hui MD Active TIZANIDINE HCL 4 MG TABS 1 po q6hr PRN Muscle Spasm/Back Pain TIZANIDINE HCL 34323461267 Active Vishal Hui MD Active CLINDAMYCIN HCL 150 MG CAPS 1 four times a day CLINDAMYCIN HCL 86708277159 No Longer Active Neeraj Collins MD Active KEFLEX 500 MG ORAL CAPS 1 cap QID by mouth CEPHALEXIN 14959934444 No Longer Active Neeraj Collins MD Active DIFLUCAN 150 MG TABS 1 pill every other day x 2 doses FLUCONAZOLE 31760359933 No Longer Active Sahara Rodriguez MD PhD Active MELATONIN 3 MG CAPS 2 po q hs MELATONIN 11037537383 No Longer Active Sahara Rodriguez MD PhD Active MULTIVITAMINS CAPS Take one by mouth daily MULTIPLE VITAMIN 93714315395 No Longer Active Sahara Rodriguez MD PhD Active BACTRIM DS 800-160 MG TAB 1 tab by mouth twice daily TRIMETHOPRIM-SULFAMETHOXAZOLE 34597211696 No Longer Active Sahara Rodriguez MD PhD Active [employer] PROBIOTIC ORAL CHEW 2 daily po PROBIOTIC PRODUCT 78604385047 No Longer Active Sahara Rodriguez MD PhD Active BACTRIM DS 800-160 MG TABS 1 po BID x 7 days SULFAMETHOXAZOLE-TRIMETHOPRIM 42887507038 No Longer Active Vishal Hui MD Active CHANTIX STARTING MONTH EARNEST 0.5 MG X 11 & 1 MG X 42 TABS 0.5mg daily for 3 days , then 0.5mg BID for 4 days, then 1mg BID VARENICLINE TARTRATE 49870979607 No Longer Active TAMARA Gray Active VERAPAMIL HCL CR 120 MG TAB CR 1 po bid VERAPAMIL HCL 69523294108 No Longer Active Vishal Hui MD Active METOPROLOL SUCCINATE 50 MG TB24 1 tablet by mouth daily METOPROLOL SUCCINATE 26341369255 No Longer Active Vishal Hui MD Active SAPHRIS 10 MG SUBL 1 tab po bid ASENAPINE MALEATE 70904713649 No Longer Active Vishal Hui MD Active LISINOPRIL 20 MG TABS 1 tab po qd LISINOPRIL 12741919960 No Longer Active Vishal Hui MD Active LATUDA 20 MG TABS Take one by mouth daily LURASIDONE HCL 08303746366 No Longer Active Vishal Hui MD Active TRAZODONE HCL 50 MG TABS 1/2 tab po qd prn for anxiety TRAZODONE HCL 17445650525 No Longer Active Vishal uHi MD Active OMEPRAZOLE 20 MG TBEC 1 po q a.m. 30min prior to first food intake OMEPRAZOLE 48103340640 Active Vishal Hui MD Active RANITIDINE HCL 150 MG CAPS 1 twice a day RANITIDINE HCL 05819002176 Active Luigi Martínez APRN Active LINZESS 290 MCG CAPS Take one by mouth daily LINACLOTIDE 01361005560 No Longer Active Vishal Hui MD Active SAPHRIS 5 MG SUBL 1 tab po qd ASENAPINE MALEATE 96212209283 No Longer Active Vishal Hui MD Active ZALEPLON 10 MG CAPS 1 cap po every other night ZALEPLON 65673368157 No Longer Active Vishal Hui MD Active LYRICA 50 MG CAPS 1 tab po TID PREGABALIN 54285479393 No Longer Active Vishal Hui MD Active LORATADINE 10 MG TABS 1 tab po qd LORATADINE 05559795633 No Longer Active Vishal Hui MD Active VERAPAMIL HCL ER 180 MG CR-TABS 1 tab po bid VERAPAMIL HCL 06065646483 No Longer Active Vishal uHi MD Active MIRALAX POWD 1 capfull once daily POLYETHYLENE GLYCOL 3350 78567946085 No Longer Active Vishal Hui MD Active PREDNISONE 20 MG TABS 1 tab po qd PREDNISONE 07243473967 No Longer Active Renzo Thornton DO Active LEVOFLOXACIN 500 MG TABS 1 tab po qd LEVOFLOXACIN 96287938462 No Longer Active Renzo Thornton DO Active BUSPIRONE HCL 15 MG TABS 1 tab po TID BUSPIRONE HCL 44518905526 No Longer Active Renzo Thornton DO Active BENZTROPINE MESYLATE 1 MG TABS 1 tab po qd BENZTROPINE MESYLATE 77311360556 No Longer Active Renzo Thornton DO Active ATENOLOL 25 MG TABS 1 tab po qd ATENOLOL 83510955773 No Longer Active Renzo Thornton DO Active ESCITALOPRAM OXALATE 20 MG TABS 1 tab po qd ESCITALOPRAM OXALATE 76929335317 No Longer Active Renzo Thornton DO Active ADVAIR DISKUS 250-50 MCG/DOSE AEPB 1 puff BID FLUTICASONE-SALMETEROL 65371008284 No Longer Active Renzo Thornton DO Active PREDNISONE 20 MG TAB 2 tabs daily for 3 days, 1 tab daily for 3 days, 1/2 tab daily for 2 days PREDNISONE 21436165373 No Longer Active Vishal Hui MD Active CEFDINIR 300 MG CAPS by mouth twice a day CEFDINIR 85025849414 No Longer Active Vishal Hui MD Active LANSOPRAZOLE 30 MG CPDR 1 cap po qd LANSOPRAZOLE 94615636153 No Longer Active Vishal Hui MD Active BACLOFEN 20 MG TABS 1 tab po tid BACLOFEN 29802855378 No Longer Active Vishal Hui MD Active ADVAIR DISKUS 250-50 MCG/DOSE AEPB 1 puff BID ADVAIR DISKUS 250-50 MCG/DOSE AEPB FLUTICASONE-SALMETEROL Inactive ESCITALOPRAM OXALATE 20 MG TABS 1 tab po qd ESCITALOPRAM OXALATE 20 MG TABS 889971 ESCITALOPRAM OXALATE Inactive ATENOLOL 25 MG TABS 1 tab po qd ATENOLOL 25 MG TABS 779732 ATENOLOL Inactive BENZTROPINE MESYLATE 1 MG TABS 1 tab po qd BENZTROPINE MESYLATE 1 MG TABS 480114 BENZTROPINE MESYLATE Inactive BUSPIRONE HCL 15 MG TABS 1 tab po TID BUSPIRONE HCL 15 MG TABS 250030 BUSPIRONE HCL Inactive LEVOFLOXACIN 500 MG TABS 1 tab po qd LEVOFLOXACIN 500 MG TABS 093361 LEVOFLOXACIN Inactive PREDNISONE 20 MG TABS 1 tab po qd PREDNISONE 20 MG TABS 490143 PREDNISONE Inactive MIRALAX POWD 1 capfull once daily MIRALAX POWD 708191 POLYETHYLENE GLYCOL 3350 Inactive VERAPAMIL HCL ER 180 MG CR-TABS 1 tab po bid VERAPAMIL HCL ER 180 MG CR-TABS VERAPAMIL HCL Inactive LORATADINE 10 MG TABS 1 tab po qd LORATADINE 10 MG TABS 854964 LORATADINE Inactive LYRICA 50 MG CAPS 1 tab po TID LYRICA 50 MG CAPS PREGABALIN Inactive ZALEPLON 10 MG CAPS 1 cap po every other night ZALEPLON 10 MG CAPS 187389 ZALEPLON Inactive SAPHRIS 5 MG SUBL 1 tab po qd SAPHRIS 5 MG SUBL ASENAPINE MALEATE Inactive TRAZODONE HCL 50 MG TABS 1/2 tab po qd prn for anxiety TRAZODONE HCL 50 MG TABS 540645 TRAZODONE HCL Inactive LATUDA 20 MG TABS Take one by mouth daily LATUDA 20 MG TABS LURASIDONE HCL Inactive LISINOPRIL 20 MG TABS 1 tab po qd LISINOPRIL 20 MG TABS 606529 LISINOPRIL Inactive SAPHRIS 10 MG SUBL 1 [...] twice daily BACTRIM DS 800-160 MG TAB 179673 TRIMETHOPRIM-SULFAMETHOXAZOLE Inactive MULTIVITAMINS CAPS Take one by mouth daily MULTIVITAMINS CAPS MULTIPLE VITAMIN Inactive MELATONIN 3 MG CAPS 2 po q hs MELATONIN 3 MG CAPS 644882 MELATONIN Inactive KEFLEX 500 MG ORAL CAPS 1 cap QID by mouth KEFLEX 500 MG ORAL CAPS 054357 CEPHALEXIN Inactive CLINDAMYCIN HCL 150 MG CAPS 1 four times a day CLINDAMYCIN HCL 150 MG CAPS 19740326 CLINDAMYCIN HCL Inactive DIFLUCAN 150 MG TAB 1 tablet by mouth daily DIFLUCAN 150 MG TAB 309070 FLUCONAZOLE Inactive PROZAC 20 MG CAP Take one by mouth daily PROZAC 20 MG CAP 338032 FLUOXETINE HCL Inactive IBUPROFEN 600 MG TAB 1 po TID PRN IBUPROFEN 600 MG TAB 033297 IBUPROFEN Inactive VYVANSE 40 MG CAPS 1 daily, VYVANSE 40 MG CAPS LISDEXAMFETAMINE DIMESYLATE Inactive TRAZODONE HCL 100 MG TAB take 1 at bedtime TRAZODONE HCL 100 MG TAB 163256 TRAZODONE HCL Inactive AMITRIPTYLINE HCL 100 MG TAB one at hs AMITRIPTYLINE HCL 100 MG TAB 651905 AMITRIPTYLINE HCL Inactive AMLODIPINE BESYLATE 5 MG TABS 1 tablet by mouth daily AMLODIPINE BESYLATE 5 MG TABS 875580 AMLODIPINE BESYLATE Inactive LATUDA 80 MG TABS Take one by mouth daily LATUDA 80 MG TABS LURASIDONE HCL Inactive SAPHRIS 5 MG SUBL 1 po bid SAPHRIS 5 MG SUBL ASENAPINE MALEATE Inactive PREDNISONE 20 MG TAB 2 tabs daily for 4 days, 1 tab daily for 4 days, 1/2 tab daily for 4 days PREDNISONE 20 MG TAB 352930 PREDNISONE Inactive AMBIEN 5 MG ORAL TABS 1 tab at bedtime AMBIEN 5 MG ORAL TABS 843953 ZOLPIDEM TARTRATE Inactive PROZAC 20 MG ORAL CAPS 1 tab daily PROZAC 20 MG ORAL CAPS 566788 FLUOXETINE HCL Inactive ABILIFY 15 MG ORAL TABS 1 tab daily ABILIFY 15 MG ORAL TABS 374024 ARIPIPRAZOLE Inactive METOPROLOL TARTRATE 50 MG TAB 1 po bid METOPROLOL TARTRATE 50 MG TAB 402123 METOPROLOL TARTRATE Inactive TRAMADOL HCL 50 MG TABS 1-2 po TID PRN Pain TRAMADOL HCL 50 MG TABS 055747 TRAMADOL HCL Inactive PIROXICAM 20 MG CAPS 1 cap po qd PRN Pain PIROXICAM 20 MG CAPS 186313 PIROXICAM Inactive MINIPRESS 2 MG CAPS 4 cap po at night MINIPRESS 2 MG CAPS 156232 PRAZOSIN HCL Inactive MIRALAX PACK 1 po qd PRN Constipation MIRALAX PACK 407983 POLYETHYLENE GLYCOL 3350 Inactive METOPROLOL TARTRATE 25 MG ORAL TABS 1/2 tablet twice daily for heart rate and blood pressure METOPROLOL TARTRATE 25 MG ORAL TABS 955455 METOPROLOL TARTRATE Inactive VALIUM 5 MG TAB Take 1-2 tablets daily VALIUM 5 MG TAB 084677 DIAZEPAM Inactive FLAGYL 500 MG TAB 1 tablet by mouth bid FLAGYL 500 MG TAB 505993 METRONIDAZOLE Inactive DICLOFENAC POTASSIUM TABS Take 1 tablet twice a day (pt. is not sure of the dose.) DICLOFENAC POTASSIUM TABS DICLOFENAC POTASSIUM TABS Inactive ZITHROMAX Z-EARNEST 250 MG TABS 2 today and then 1 daily for 4 days ZITHROMAX Z-EARNEST 250 MG TABS 5386168 AZITHROMYCIN Inactive PREDNISONE 20 MG TABS 2 daily for 5 days then 1 daily for 5 days PREDNISONE 20 MG TABS 155583 PREDNISONE Inactive PROAIR HFA 108 (90 BASE) MCG/ACT AERS 2 puffs four times a day as needed 2015 PROAIR HFA 108 (90 BASE) MCG/ACT AERS ALBUTEROL SULFATE Inactive HYDROCODONE-ACETAMINOPHEN 5-325 MG TABS 1 to 2 four times a day as needed for pain use until can be seen by specialist HYDROCODONE- ACETAMINOPHEN 5-325 MG TABS 719925 HYDROCODONE-ACETAMINOPHEN Inactive TESSALON PERLES 100 MG CAP 1 to 2 tablets by mouth 3 times daily as needed for cough TESSALON PERLES 100 MG CAP 485883 BENZONATATE Inactive CHANTIX STARTING MONTH EARNEST 0.5 [...] Pain 2015 DICLOFENAC SODIUM 50 MG TBEC 159466 DICLOFENAC SODIUM Inactive TOPAMAX 50 MG ORAL TABS 1 tab twice daily TOPAMAX 50 MG ORAL TABS 885581 TOPIRAMATE Inactive VIIBRYD 10 MG ORAL TABS Take 1 tablet once a day VIIBRYD 10 MG ORAL TABS VILAZODONE HCL Inactive LEVOFLOXACIN 500 MG ORAL TABS po daily LEVOFLOXACIN 500 MG ORAL TABS 061512 LEVOFLOXACIN Inactive METHYLPREDNISOLONE 4 MG ORAL TABS po daily METHYLPREDNISOLONE 4 MG ORAL TABS 930885 METHYLPREDNISOLONE Inactive OXYCODONE HCL ER 10 MG ORAL T12A 1/2 tab by mouth every 4 hours prn OXYCODONE HCL ER 10 MG ORAL T12A OXYCODONE HCL Inactive FLAGYL 500 MG TAB 1 tablet by mouth bid FLAGYL 500 MG TAB 729070 METRONIDAZOLE Inactive MONISTAT 7 COMBO PACK WOODROW 100 & 2 MG-% (9GM) VAG KIT 1 applicatorful per vagina q pm x 7 MONISTAT 7 COMBO PACK WOODROW 100 & 2 MG-% (9GM) VAG KIT MICONAZOLE NITRATE Inactive BACTRIM DS 800-160 MG TABS 1 twice a day BACTRIM DS 800-160 MG TABS 764612 SULFAMETHOXAZOLE-TRIMETHOPRIM Inactive TRAMADOL HCL 50 MG TABS 1/2-1 tab TID PRN TRAMADOL HCL 50 MG TABS 920206 TRAMADOL HCL Inactive ABILIFY MAINTENA 400 MG IM SUSR 400mg injection every 26 days ABILIFY MAINTENA 400 MG IM SUSR ARIPIPRAZOLE Inactive KLONOPIN 1 MG ORAL TABS 1 tab po TID KLONOPIN 1 MG ORAL TABS 096774 CLONAZEPAM Inactive ADVAIR DISKUS 250-50 MCG/DOSE INH AEPB 1 puff twice a day for asthma ADVAIR DISKUS 250-50 MCG/DOSE INH AEPB FLUTICASONE- SALMETEROL Inactive BENADRYL 25 MG CAP 4 po at bedtime for insomnia BENADRYL 25 MG CAP DIPHENHYDRAMINE HCL Inactive PREDNISONE 20 MG TABS 2 daily for 5 days then 1 daily for 5 days PREDNISONE 20 MG TABS 792272 PREDNISONE Inactive HYDROCODONE-ACETAMINOPHEN 5-325 MG ORAL TABS 1 tab two times a day HYDROCODONE-ACETAMINOPHEN 5-325 MG ORAL TABS 405790 HYDROCODONE-ACETAMINOPHEN Inactive CEFDINIR 300 MG CAPS by mouth twice a day CEFDINIR 300 MG CAPS 973383 CEFDINIR Inactive PREDNISONE 20 MG TAB 2 tabs daily for 3 days, 1 tab daily for 3 days, 1/2 tab daily for 2 days PREDNISONE 20 MG TAB 299222 PREDNISONE Inactive BACTRIM DS 800-160 MG TABS 1 po BID x 7 days BACTRIM DS 800-160 MG TABS 19820521 SULFAMETHOXAZOLE-TRIMETHOPRIM Inactive DIFLUCAN 150 MG TABS 1 pill every other day x 2 doses DIFLUCAN 150 MG TABS 247558 FLUCONAZOLE Inactive BACTRIM DS 800-160 MG TABS 1 pill by mouth twice daily BACTRIM DS 800-160 MG TABS 105147 SULFAMETHOXAZOLE-TRIMETHOPRIM Inactive KEFLEX 500 MG CAP 1 po TID x 10 days KEFLEX 500 MG CAP 171542 CEPHALEXIN Inactive Advance Directives Directive Description Start [...] 369 10^3/MM^3 10*3/mm3 142-424 Lab Report: Chlamydia/GC APTIMA/[id number] - Lab chlamydia DNA probe NOT DETECTED NOT DETECTED Lab Report: Chlamydia/GC APTIMA/[id number] - Microbiology Neisseria gonorrhoeae DNA probe NOT DETECTED NOT DETECTED Lab Report: Comp. Metabolic Panel - Chemistry blood glucose 80 mg/dL 65-110 chloride, serum 103 mmol/L 98-107 potassium, serum 5.0 mmol/L 3.5-5.2 carbon dioxide, venous blood 33.7 mmol/L 21.0-32.0 sodium, serum 140 mmol/L 665-467 8977/06/08 sodium, serum 142 mmol/L 489-236 6594/06/08 carbon dioxide, venous blood 27.6 mmol/L 21.0-32.0 [...] mg/dL Encounters Code Encounter Date Provider Facility CPT-01176 Level 3 Est. Patient 11:47:37 DIGITAL COMPUTER OPERATOR Ahmet Carbajal MD [facility] CPT-88779 Level 3 Est. Patient 10:40:11 DIGITAL COMPUTER OPERATOR Ahmet Carbajal MD [facility] CPT-92981 Level 3 Est. Patient 15:07:06 DIGITAL COMPUTER OPERATOR Neeraj Collins MD [facility] CPT-42071 Level 4 Est. Patient 14:45:00 DIGITAL COMPUTER OPERATOR Ahmet Carbajal MD [facility] CPT-57144 Level 3 Est. Patient 13:59:59 CDT Luigi Martínez [facility] CPT-80248 Level 3 Est. Patient 18:18:53 CDT Neeraj Collins MD [facility] CPT-08806 Level 3 Est. Patient 15:50:44 CDT Vishal Hui MD [facility] CPT-82468 Level 3 Est. Patient 11:36:17 CDT Ahmet Carbajal MD [facility] CPT-50771 Level 3 Est. Patient 13:29:16 CDT Vishal Hui MD [facility] CPT-18587 Level 3 Est. Patient 14:27:52 CDT Neeraj Collins MD [facility] CPT-84207 Level 3 Est. Patient 08:56:03 CDT Luigi Martínez [facility] CPT-40700 Level 4 Est. Patient 12:11:48 CDT Fabiola Johnson [facility] CPT-13409 Level 3 New Patient 16:53:37 CDT Albert Caldera MD [facility] CPT-25004 Level 3 Est. Patient 11:25:49 CDT Renzo Thornton DO [facility] CPT-12206 Level 3 Est. Patient 15:22:01 CDT Ahmet Carbajal MD [facility] CPT-27928 Level 4 Est. Patient 09:00:51 DIGITAL COMPUTER OPERATOR Vishal Hui MD [facility] CPT-25061 Level 3 Est. Patient 11:37:33 DIGITAL COMPUTER OPERATOR Vishal Hui MD [facility] CPT-87127 Level 3 Est. Patient 08:41:09 DIGITAL COMPUTER OPERATOR Vishal Hui MD [facility] CPT-15218 Level 4 Est. Patient 10:19:35 DIGITAL COMPUTER OPERATOR Vishal Hui MD [facility] CPT-27102 Level 3 Est. Patient 13:35:45 CDT Vishal Hui MD [facility] CPT-26845 Level 4 Est. Patient 10:08:37 CDT Vishal Hui MD [facility] CPT-84132 Level 3 Est. Patient 11:22:10 CDT Vishal Hui MD [facility] CPT-65419 Level 3 Est. Patient 11:03:32 CDT Sahara Rodriguez MD [facility] CPT-02649 Level 3 Est. Patient 09:41:35 CDT Vishal Hui MD [facility] CPT-33142 Level 3 Est. Patient 12:00:41 CDT Neeraj Collins MD [facility] CPT-54133 Level 3 Est. Patient 09:16:24 CDT Vishal Hui MD [facility] CPT-89887 Level 4 Est. Patient 13:59:09 CDT Neeraj Collins MD [facility] CPT-36172 Level 3 Est. Patient 15:19:43 CDT Renzo Thornton DO [facility] CPT-51862 Level 3 Est. Patient 18:10:26 CDT Sahara Rodriguez MD [facility] [place]-70089 Level 3 Est. Patient 14:49:50 CDT Vishal Hui MD [facility] CPT-61466 Level 4 Est. Patient 18:41:46 CDT Neeraj Collins MD [facility] CPT-40037 Level 4 Est. Patient 09:18:38 DIGITAL COMPUTER OPERATOR Vishal Hui MD [facility] CPT-52578 Level 3 Est. Patient 14:43:55 DIGITAL COMPUTER OPERATOR Vishal Hui MD [facility] CPT-47868 Level 3 Est. Patient 15:26:33 DIGITAL COMPUTER OPERATOR Sahara Rodriguez MD, PhD [facility] CPT-78076 Level 3 Est. Patient 10:32:14 DIGITAL COMPUTER OPERATOR Vishal Hui MD [facility] CPT-87063 Level 3 Est. Patient 15:12:52 DIGITAL COMPUTER OPERATOR Vishal Hui MD [facility] CPT-49149 Level 4 Est. Patient 09:19:27 CDT Vishal Hui MD [facility] CPT-19074 Level 3 Est. Patient 15:53:00 CDT Renzo Thornton [facility] CPT-90823 Level 3 Est. Patient 15:50:30 CDT Renzo Thornton [facility] CPT-88782 Level 3 Est. 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 CPT-83761 TSH - LAB USE ONLY 08:50:26 DIGITAL COMPUTER OPERATOR CPT-17545 CBC - LAB USE ONLY 08:50:26 DIGITAL COMPUTER OPERATOR CPT-24596 Venipuncture Draw Fee 08:50:26 DIGITAL COMPUTER OPERATOR CPT-41537 Abx/Therapy Injection 17:34:30 DIGITAL COMPUTER OPERATOR CPT-68580 Nexplanon Removal with Reinsertion 14:09:32 CDT CPT-J7307 Nexplanon (Implant) 14:09:32 CDT CPT-OV Office Visit 14:09:32 CDT CPT-54325 UA w micro - LAB USE ONLY 16:21:13 CDT CPT-83472 Wet Mount - LAB USE ONLY 16:21:13 CDT CPT-04860 First Vx - Ix admin for Medicare patients 14:37:47 CDT CPT-56988 Fluzone Preservative Free Intramuscular Suspension 14:37 :47 CDT CPT-22615 Abx/Therapy Injection 13:54:22 CDT CPT-18964 Abx/Therapy Injection 08:47:09 CDT CPT-14611 Abx/Therapy Injection 13:29:56 CDT CPT-71390 Abx/Therapy Injection 08:36:16 CDT CPT-04190 Wet Mount - LAB USE ONLY 17:44:58 CDT CPT-01595 UA w micro - LAB USE ONLY 17:44:58 CDT CPT-30766 CMP - LAB USE ONLY 17:44:58 CDT CPT-61413 Venipuncture Draw Fee 17:44:58 CDT CPT-71469 Cervical Min 4V - XRAY USE ONLY 09:01:40 CDT CPT-41966 Chest 2V Frontal and Lat - XRAY USE ONLY 11:06:31 CDT CPT-74004 EKG Trac and Interp - XRAY USE ONLY 11:31:43 CDT 08/26 CPT-J3420 Vitamin B12 1000mcg (Cyanocobalamin) 08:10:26 DIGITAL COMPUTER OPERATOR 04/12 CPT-51333 Abx/Therapy Injection 08:10:26 DIGITAL COMPUTER OPERATOR CPT-G0438 Initial Annual Wellness Exam 19:01:01 DIGITAL COMPUTER OPERATOR CPT-J3420 Vitamin B12 1000mcg (Cyanocobalamin) 16:57:46 CDT 08/14 CPT-14589 Recombivax HB Injection Suspension 5 MCG/0.5ML 08:37:50 DIGITAL COMPUTER OPERATOR CPT-76301 Immunization Single Admin 08:37:50 DIGITAL COMPUTER OPERATOR CPT-J3420 Vitamin B12 1000mcg (Cyanocobalamin) 08:32:16 DIGITAL COMPUTER OPERATOR 03/11 CPT-48331 Abx/Therapy Injection 08:32:16 DIGITAL COMPUTER OPERATOR CPT-15252 Chest 2V Frontal and Lat 11:46:38 DIGITAL COMPUTER OPERATOR CPT-95994 Venipuncture Draw Fee 09:12:45 DIGITAL COMPUTER OPERATOR CPT-J3420 Vitamin B12 1000mcg (Cyanocobalamin) 08:50:15 DIGITAL COMPUTER OPERATOR 02/08 CPT-51768 Abx/Therapy Injection 08:50:15 DIGITAL COMPUTER OPERATOR CPT-Cryo Cryotherapy 10:19:35 DIGITAL COMPUTER OPERATOR CPT-000 Give Appropriate Flu Vaccine 09:22:16 CDT CPT-J3420 Vitamin B12 1000mcg (Cyanocobalamin) 19:08:57 CDT 01/11 CPT-87109 Abx/Therapy Injection 19:08:57 CDT CPT-J3420 Vitamin B12 1000mcg (Cyanocobalamin) 08:19:08 CDT 12/11 CPT-70467 Abx/Therapy Injection 08:19:08 CDT CPT-J3420 Vitamin B12 1000mcg (Cyanocobalamin) 14:48:00 CDT 11/09 CPT-59272 Abx/Therapy Injection 14:47:59 CDT CPT-J3420 Vitamin B12 1000mcg (Cyanocobalamin) 08:34:04 CDT 10/09 CPT-76646 Abx/Therapy Injection 08:34:04 CDT CPT-J3420 Vitamin B12 1000mcg (Cyanocobalamin) 09:18:52 CDT 09/11 CPT-43109 Abx/Therapy Injection 09:18:52 CDT CPT-J3420 Vitamin B12 1000mcg (Cyanocobalamin) 08:35:44 CDT 09/04 CPT-21143 Abx/Therapy Injection 08:35:44 CDT CPT-60559 Immunization Single Admin 11:07:16 CDT CPT-66183 Hepatitis B adult IM 11:07:16 CDT CPT-J3420 Vitamin B12 1000mcg (Cyanocobalamin) 11:00:49 CDT 08/28 CPT-J1040 Depo Medrol 80 mg (Methyl Prednisolone Acetate) 11:00: 49 CDT CPT-17574 Abx/Therapy Injection 11:00:49 CDT CPT-J1040 Depo Medrol 80 mg (Methyl Prednisolone Acetate) 09:16: 23 CDT CPT-J3420 Vitamin B12 1000mcg (Cyanocobalamin) 08:27:05 CDT 08/20 CPT-72128 Abx/Therapy Injection 08:27:05 CDT CPT-54396 Recombivax HB Injection Suspension 5 MCG/0.5ML 10:00:41 CDT CPT-54245 Administration single or combination vaccine inc oral 10 :00:41 CDT CPT-70928 Sono transvag pelvis non OB uterus ovaries cervix 16:36: 57 CDT CPT-07211 LS spine comp w obliq 09:50:55 DIGITAL COMPUTER OPERATOR CPT-31703 Abd compl w upright 09:50:55 DIGITAL COMPUTER OPERATOR CPT-J1100 Decadron 4mg (Dexamethasone) 15:51:24 DIGITAL COMPUTER OPERATOR CPT-J1030 Depo Medrol 40 mg (Methyl Prednisolone Acetate) 15:51: 24 DIGITAL COMPUTER OPERATOR CPT-78023 Abx/Therapy Injection 15:51:24 DIGITAL COMPUTER OPERATOR CPT-J1100 Decadron 4mg (Dexamethasone) 15:26:33 DIGITAL COMPUTER OPERATOR CPT-J1030 Depo Medrol 40 mg (Methyl Prednisolone Acetate) 15:26: 33 DIGITAL COMPUTER OPERATOR CPT-56447 Sono retroperitoneal complete kidneys and bladder 17:15: 30 CDT CPT-91022 Abd compl w upright 16:09:25 CDT CPT-J1100 Decadron 8mg (Dexamethasone) 17:07:57 CDT CPT-15944 Abx/Therapy Injection 17:07:57 CDT CPT-J1100 Decadron 8mg (Dexamethasone) 16:55:24 CDT CPT-85203 Chest 2V Frontal and Lat 16:32:44 CDT
--- OUTSIDE RECORDS SUMMARY | 2016-11-04 20:30 | XMS REPORT ---
Author Author [facility] Medical Staff Organization [facility] Transmit [facility] Address [address] [place], [place] [id number] Phone [phone] Summary purpose TRANSITION OF CARE AUTO GENERATION [...] diagnostic tests and/or laboratory data RESULTS Chemistry [id number]:35:00 Result Normal Range Units Sodium 139 134-145 mEq/l Potassium 3.7 3.5-5.1 mEq/l Chloride 106 98-107 mEq/l CO2 25.9 22-28 mEq/l Glucose 96 70-105 mg/dl BUN 13 7-18 mg/dl Creatinine 0.88 0.6-1.0 mg/dl Calcium 9.2 8.4-10.2 mg/dl Osmolality L 277.5 280-300 mOsm/L Anion GAP L 7.1 8-16 BUN/Creatinine Ratio 14.8 10-20 Estimated GFR 77 >=60 mL/min/1.7 History of procedures Procedure Code Code Type Description Date Performed Performing Physician 47777 CPT-4 METABOLIC PANEL TOTAL CA 04-28-2015 OLGA PATEL Functional status No functional or [...]
--- OUTSIDE RECORDS SUMMARY | 2016-11-04 20:30 | XMS REPORT | Clinical Summary ---
Author Author Admin, BRIELLEE Organization [employer] Address Unknown Phone Unavailable Allergies, Adverse Reactions, [...] for removal of sutures V58.32 Resolved Vishal uHi MD Encounter for removal of sutures Hot [...] sites Morbid obesity 278.01 Active Juliet Kimbrough MARKET REPORTER Morbid obesity 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 Active Juliet [...] breath Nocturnal hypoxia 799.02 Active Fabiola Johnson MARKET REPORTER Hypoxemia Neck pain 723.1 Resolved Vishal Hui [...] fibula Vaginal discharge 623.5 Active Luigi Martínez MARKET REPORTER Leukorrhea, not specified as infective DYSURIA 788.1 [...] 6 hours as needed for cough GUAIFENESIN-CODEINE 93566328970 Active Ahmet Carbajal MD Active PREDNISONE 20 MG TABS 2 daily for 5 days then 1 daily for 5 days PREDNISONE 41671523009 Active Ahmet Carbajal MD Active LAMICTAL 100 MG ORAL TABS 1 tab q.d LAMOTRIGINE 79269728965 Active Ahmet Carbajal MD Active BENADRYL 25 MG CAP 4 po at bedtime for insomnia DIPHENHYDRAMINE HCL 02877632439 No Longer Active Ahmet Carbajal MD Active ADVAIR DISKUS 250-50 MCG/DOSE INH AEPB 1 puff twice a day for asthma FLUTICASONE-SALMETEROL 02396283446 No Longer Active Ahmet Carbajal MD Active KLONOPIN 1 MG ORAL TABS 1 tab po TID CLONAZEPAM 32142461884 No Longer Active Ahmet Carbajal MD Active ABILIFY MAINTENA 400 MG IM SUSR 400mg injection every 26 days ARIPIPRAZOLE 18908959446 No Longer Active Ahmet Carbajal MD Active HALOPERIDOL 10 MG ORAL TABS 1 tab q.d HALOPERIDOL 01509219572 Active Ahmet Carbajal MD Active ASPIRIN 325 MG ORAL TABS 1 tab q.d ASPIRIN 18754575422 Active Ahmet Carbajal MD Active HYDROCODONE-ACETAMINOPHEN 5-325 MG ORAL TABS 1 tab two times a day HYDROCODONE-ACETAMINOPHEN 97991362811 Active Ahmet Carbajal MD Active TRAMADOL HCL 50 MG TABS 1/2-1 tab TID PRN TRAMADOL HCL 58739534483 No Longer Active Ahmet Carbajal MD Active BACTRIM DS 800-160 MG TABS 1 twice a day SULFAMETHOXAZOLE- TRIMETHOPRIM 69184029560 No Longer Active Ahmet Carbajal MD Active PROAIR HFA 108 (90 BASE) MCG/ACT AERS 2 puffs four times a day as needed 2015 ALBUTEROL SULFATE 51677289947 Active Ahmet Carbajal MD Active EQ NICOTINE 21 MG/24HR TRANS PT24 Apply daily to stop smoking NICOTINE 55434126236 Active Ahmet Carbajal MD Active MONISTAT 7 COMBO PACK WOODROW 100 & 2 MG-% (9GM) VAG KIT 1 applicatorful per vagina q pm x 7 MICONAZOLE NITRATE 18067512236 No Longer Active Ahmet Carbajal MD Active FLAGYL 500 MG TAB 1 tablet by mouth bid METRONIDAZOLE 80775912068 No Longer Active Ahmet Carbajal MD Active OXYCODONE HCL ER 10 MG ORAL T12A 1/2 tab by mouth every 4 hours prn OXYCODONE HCL 03590905508 No Longer Active Ahmet Carbajal MD Active METHYLPREDNISOLONE 4 MG ORAL TABS po daily METHYLPREDNISOLONE 58054140935 No Longer Active Ahmet Carbajal MD Active LEVOFLOXACIN 500 MG ORAL TABS po daily LEVOFLOXACIN 58848994449 No Longer Active Ahmet Carbajal MD Active VIIBRYD 10 MG ORAL TABS Take 1 tablet once a day VILAZODONE HCL 33958880431 No Longer Active Ahmet Carbajal MD Active TOPAMAX 50 MG ORAL TABS 1 tab twice daily TOPIRAMATE 51202450821 No Longer Active Ahmet Carbajal MD Active DICLOFENAC SODIUM 50 MG TBEC 1 tablet by mouth four times daily PRN Pain 2015 DICLOFENAC SODIUM 30284484062 No Longer Active Ahmet Carbajal MD Active ADZENYS XR-ODT 6.3 MG ORAL TBED 1 tab po daily for ADHD AMPHETAMINE 66915047279 No Longer Active Ahmet Carbajal MD Active CHANTIX 1 MG TABS 1 twice a day to help quit smoking VARENICLINE TARTRATE 40935280129 No Longer Active Dipika Burgos MD Active CHANTIX STARTING MONTH EARNEST 0.5 MG X 11 & 1 MG X 42 TABS take as directed 2015 VARENICLINE TARTRATE 06978788542 No Longer Active Dipika Burgos MD Active TESSALON PERLES 100 MG CAP 1 to 2 tablets by mouth 3 times daily as needed for cough BENZONATATE 53844020065 No Longer Active Luigi Martínez MARKET REPORTER Active IMITREX 50 MG ORAL TABS 0.5 po x 1 PRN Headache. May repeat dose x 1 in 2 hours if needed SUMATRIPTAN SUCCINATE 28076252657 Active Lynda Xiao [employer]OP[employer] SALESPERSON Active HYDROCODONE-ACETAMINOPHEN 5-325 MG TABS 1 to 2 four times a day as needed for pain use until can be seen by specialist HYDROCODONE- ACETAMINOPHEN 81464853435 No Longer Active Vishal Hui MD Active PROAIR HFA 108 (90 BASE) MCG/ACT AERS 2 puffs four times a day as needed 2015 ALBUTEROL SULFATE 05307560937 No Longer Active Vishal Hui MD Active PREDNISONE 20 MG TABS 2 daily for 5 days then 1 daily for 5 days PREDNISONE 75067931339 No Longer Active Vishal Hui MD Active ZITHROMAX Z-EARNEST 250 MG TABS 2 today and then 1 daily for 4 days AZITHROMYCIN 99830436097 No Longer Active Vishal Hui MD Active DICLOFENAC POTASSIUM TABS Take 1 tablet twice a day (pt. is not sure of the dose.) DICLOFENAC POTASSIUM TABS 20994552247 No Longer Active Vishal Hui MD Active VERAPAMIL HCL ER 120 MG ORAL CR-TABS Take 1 tablet by mouth twice a day. VERAPAMIL HCL 26706001802 Active Vishal Hui MD Active FLAGYL 500 MG TAB 1 tablet by mouth bid METRONIDAZOLE 97698316678 No Longer Active Vishal Hui MD Active FLUTICASONE PROPIONATE 50 MCG/ACT SUSP 2 sprays each nostril daily before bed. FLUTICASONE PROPIONATE 36919589633 Active Fabiola Johnson APRN Active VALIUM 5 MG TAB Take 1-2 tablets daily DIAZEPAM 13552626733 No Longer Active Fabiola Johnson APRN Active METOPROLOL TARTRATE 25 MG ORAL TABS 1/2 tablet twice daily for heart rate and blood pressure METOPROLOL TARTRATE 31731095394 No Longer Active Fabiola Johnson APRN Active MIRALAX ORAL POWD 17GMS DAILY IN WATER POLYETHYLENE GLYCOL 3350 81240827861 Active Vishal Hui MD Active MIRALAX PACK 1 po qd PRN Constipation POLYETHYLENE GLYCOL 3350 54799671835 No Longer Active Ahmet Carbajal MD Active MINIPRESS 2 MG CAPS 4 cap po at night PRAZOSIN HCL 40789788298 No Longer Active Ahmet Carbajal MD Active PIROXICAM 20 MG CAPS 1 cap po qd PRN Pain PIROXICAM 74855693484 No Longer Active Ahmet Carbajal MD Active TRAMADOL HCL 50 MG TABS 1-2 po TID PRN Pain TRAMADOL HCL 46468255566 No Longer Active Ahmet Carbajal MD Active METOPROLOL TARTRATE 50 MG TAB 1 po bid METOPROLOL TARTRATE 99079097571 No Longer Active Ahmet Carbajal MD Active ABILIFY 15 MG ORAL TABS 1 tab daily ARIPIPRAZOLE 00599149603 No Longer Active Ahmet Carbajal MD Active PROZAC 20 MG ORAL CAPS 1 tab daily FLUOXETINE HCL 04996998337 No Longer Active Ahmet Carbajal MD Active AMBIEN 5 MG ORAL TABS 1 tab at bedtime ZOLPIDEM TARTRATE 37745013009 No Longer Active Ahmet Carbajal MD Active PREDNISONE 20 MG TAB 2 tabs daily for 4 days, 1 tab daily for 4 days, 1/2 tab daily for 4 days PREDNISONE 70072051320 No Longer Active Ahmet Carbajal MD Active KEFLEX 500 MG CAP 1 po TID x 10 days CEPHALEXIN 90867281231 No Longer Active Vishal Hui MD Active SAPHRIS 5 MG SUBL 1 po bid ASENAPINE MALEATE 40172543856 No Longer Active Jillina Fralebron MARKET REPORTER Active LATUDA 80 MG TABS Take one by mouth daily LURASIDONE HCL 51227163669 No Longer Active Jillina Frazelephraim MARKET REPORTER Active AMLODIPINE BESYLATE 5 MG TABS 1 tablet by mouth daily AMLODIPINE BESYLATE 55925322183 No Longer Active Jillina Fralebron MARKET REPORTER Active AMITRIPTYLINE HCL 100 MG TAB one at hs AMITRIPTYLINE HCL 93388123700 No Longer Active Vishal Hui MD Active TRAZODONE HCL 100 MG TAB take 1 at bedtime TRAZODONE HCL 62418866000 No Longer Active Vishal Hui MD Active VYVANSE 40 MG CAPS 1 daily, LISDEXAMFETAMINE DIMESYLATE 71166939436 No Longer Active Vishal Hui MD Active IBUPROFEN 600 MG TAB 1 po TID PRN IBUPROFEN 41371768887 No Longer Active Vishal Hui MD Active PROZAC 20 MG CAP Take one by mouth daily FLUOXETINE HCL 54208282573 No Longer Active Vishal Hui MD Active ZOFRAN 4 MG TABS 1 po q6hr PRN Nausea ONDANSETRON HCL Active Vishal Hui MD Active BACTRIM DS 800-160 MG TABS 1 pill by mouth twice daily SULFAMETHOXAZOLE-TRIMETHOPRIM 80916659421 No Longer Active Sahara Rodriguez MD PhD Active DIFLUCAN 150 MG TAB 1 tablet by mouth daily FLUCONAZOLE 05295418519 No Longer Active Vishal Hui MD Active TIZANIDINE HCL 4 MG TABS 1 po q6hr PRN Muscle Spasm/Back Pain TIZANIDINE HCL 36349092092 Active Vishal Hui MD Active CLINDAMYCIN HCL 150 MG CAPS 1 four times a day CLINDAMYCIN HCL 59058606798 No Longer Active Neeraj Collins MD Active KEFLEX 500 MG ORAL CAPS 1 cap QID by mouth CEPHALEXIN 25388945366 No Longer Active Neeraj Collins MD Active DIFLUCAN 150 MG TABS 1 pill every other day x 2 doses FLUCONAZOLE 15065680257 No Longer Active Sahara Rodriguez MD PhD Active MELATONIN 3 MG CAPS 2 po q hs MELATONIN 81990966454 No Longer Active Sahara Rodriguez MD PhD Active MULTIVITAMINS CAPS Take one by mouth daily MULTIPLE VITAMIN 18635945082 No Longer Active Sahara Rodriguez MD PhD Active BACTRIM DS 800-160 MG TAB 1 tab by mouth twice daily TRIMETHOPRIM-SULFAMETHOXAZOLE 00033796279 No Longer Active Sahara Rodriguez MD PhD Active [facility] PROBIOTIC ORAL CHEW 2 daily po PROBIOTIC PRODUCT 65968519786 No Longer Active Sahara Rodriguez MD PhD Active BACTRIM DS 800-160 MG TABS 1 po BID x 7 days SULFAMETHOXAZOLE-TRIMETHOPRIM 47591680574 No Longer Active Vishal Hui MD Active CHANTIX STARTING MONTH EARNEST 0.5 MG X 11 & 1 MG X 42 TABS 0.5mg daily for 3 days , then 0.5mg BID for 4 days, then 1mg BID VARENICLINE TARTRATE 39184722867 No Longer Active TAMARA Gray Active VERAPAMIL HCL CR 120 MG TAB CR 1 po bid VERAPAMIL HCL 64296324877 No Longer Active Vishal Hui MD Active METOPROLOL SUCCINATE 50 MG TB24 1 tablet by mouth daily METOPROLOL SUCCINATE 10736725154 No Longer Active Vishal Hui MD Active SAPHRIS 10 MG SUBL 1 tab po bid ASENAPINE MALEATE 88053337832 No Longer Active Vishal Hui MD Active LISINOPRIL 20 MG TABS 1 tab po qd LISINOPRIL 78058453779 No Longer Active Vishal Hui MD Active LATUDA 20 MG TABS Take one by mouth daily LURASIDONE HCL 53692428516 No Longer Active Vishal Hui MD Active TRAZODONE HCL 50 MG TABS 1/2 tab po qd prn for anxiety TRAZODONE HCL 06510547183 No Longer Active Vishal Hui MD Active OMEPRAZOLE 20 MG TBEC 1 po q a.m. 30min prior to first food intake OMEPRAZOLE 33303057502 Active Vishal Hui MD Active RANITIDINE HCL 150 MG CAPS 1 twice a day RANITIDINE HCL 94092727273 Active Jioral Martínez APRN Active LINZESS 290 MCG CAPS Take one by mouth daily LINACLOTIDE 13169223436 No Longer Active Vishal Hui MD Active SAPHRIS 5 MG SUBL 1 tab po qd ASENAPINE MALEATE 74021344735 No Longer Active Vishal Hui MD Active ZALEPLON 10 MG CAPS 1 cap po every other night ZALEPLON 63329531200 No Longer Active Vishal Hui MD Active LYRICA 50 MG CAPS 1 tab po TID PREGABALIN 04423981971 No Longer Active Vishal Hui MD Active LORATADINE 10 MG TABS 1 tab po qd LORATADINE 45414410782 No Longer Active Vishal Hui MD Active VERAPAMIL HCL ER 180 MG CR-TABS 1 tab po bid VERAPAMIL HCL 78970563072 No Longer Active Vishal Hui MD Active MIRALAX POWD 1 capfull once daily POLYETHYLENE GLYCOL 3350 87989556726 No Longer Active Vishal Hui MD Active PREDNISONE 20 MG TABS 1 tab po qd PREDNISONE 30743912640 No Longer Active Renzo Thornton DO Active LEVOFLOXACIN 500 MG TABS 1 tab po qd LEVOFLOXACIN 76293762908 No Longer Active Renzo Thornton DO Active BUSPIRONE HCL 15 MG TABS 1 tab po TID BUSPIRONE HCL 13397433000 No Longer Active Renzo Thornton DO Active BENZTROPINE MESYLATE 1 MG TABS 1 tab po qd BENZTROPINE MESYLATE 89718133532 No Longer Active Renzo Thornton DO Active ATENOLOL 25 MG TABS 1 tab po qd ATENOLOL 66853831302 No Longer Active Renzo hTornton DO Active ESCITALOPRAM OXALATE 20 MG TABS 1 tab po qd ESCITALOPRAM OXALATE 38360343419 No Longer Active Renzo Thornton DO Active ADVAIR DISKUS 250-50 MCG/DOSE AEPB 1 puff BID FLUTICASONE-SALMETEROL 35927908993 No Longer Active Renzo Thornton DO Active PREDNISONE 20 MG TAB 2 tabs daily for 3 days, 1 tab daily for 3 days, 1/2 tab daily for 2 days PREDNISONE 81990365132 No Longer Active Vishal Hui MD Active CEFDINIR 300 MG CAPS by mouth twice a day CEFDINIR 81882686772 No Longer Active Vishal Hui MD Active LANSOPRAZOLE 30 MG CPDR 1 cap po qd LANSOPRAZOLE 24917337896 No Longer Active Vishal Hui MD Active BACLOFEN 20 MG TABS 1 tab po tid BACLOFEN 08444925004 No Longer Active Vishal Hui MD Active ADVAIR DISKUS 250-50 MCG/DOSE AEPB 1 puff BID ADVAIR DISKUS 250-50 MCG/DOSE AEPB FLUTICASONE-SALMETEROL Inactive ESCITALOPRAM OXALATE 20 MG TABS 1 tab po qd ESCITALOPRAM OXALATE 20 MG TABS 954158 ESCITALOPRAM OXALATE Inactive ATENOLOL 25 MG TABS 1 tab po qd ATENOLOL 25 MG TABS 909941 ATENOLOL Inactive BENZTROPINE MESYLATE 1 MG TABS 1 tab po qd BENZTROPINE MESYLATE 1 MG TABS 120808 BENZTROPINE MESYLATE Inactive BUSPIRONE HCL 15 MG TABS 1 tab po TID BUSPIRONE HCL 15 MG TABS 978187 BUSPIRONE HCL Inactive LEVOFLOXACIN 500 MG TABS 1 tab po qd LEVOFLOXACIN 500 MG TABS 745285 LEVOFLOXACIN Inactive PREDNISONE 20 MG TABS 1 tab po qd PREDNISONE 20 MG TABS 776667 PREDNISONE Inactive MIRALAX POWD 1 capfull once daily MIRALAX POWD 361733 POLYETHYLENE GLYCOL 3350 Inactive VERAPAMIL HCL ER 180 MG CR-TABS 1 tab po bid VERAPAMIL HCL ER 180 MG CR-TABS VERAPAMIL HCL Inactive LORATADINE 10 MG TABS 1 tab po qd LORATADINE 10 MG TABS 403253 LORATADINE Inactive LYRICA 50 MG CAPS 1 tab po TID LYRICA 50 MG CAPS PREGABALIN Inactive ZALEPLON 10 MG CAPS 1 cap po every other night ZALEPLON 10 MG CAPS 930507 ZALEPLON Inactive SAPHRIS 5 MG SUBL 1 tab po qd SAPHRIS 5 MG SUBL ASENAPINE MALEATE Inactive TRAZODONE HCL 50 MG TABS 1/2 tab po qd prn for anxiety TRAZODONE HCL 50 MG TABS 962357 TRAZODONE HCL Inactive LATUDA 20 MG TABS Take one by mouth daily LATUDA 20 MG TABS LURASIDONE HCL Inactive LISINOPRIL 20 MG TABS 1 tab po qd LISINOPRIL 20 MG TABS 376749 LISINOPRIL Inactive SAPHRIS 10 MG SUBL 1 [...] twice daily BACTRIM DS 800-160 MG TAB 094026 TRIMETHOPRIM-SULFAMETHOXAZOLE Inactive MULTIVITAMINS CAPS Take one by mouth daily MULTIVITAMINS CAPS MULTIPLE VITAMIN Inactive MELATONIN 3 MG CAPS 2 po q hs MELATONIN 3 MG CAPS 598914 MELATONIN Inactive KEFLEX 500 MG ORAL CAPS 1 cap QID by mouth KEFLEX 500 MG ORAL CAPS 883370 CEPHALEXIN Inactive CLINDAMYCIN HCL 150 MG CAPS 1 four times a day CLINDAMYCIN HCL 150 MG CAPS 826307 CLINDAMYCIN HCL Inactive DIFLUCAN 150 MG TAB 1 tablet by mouth daily DIFLUCAN 150 MG TAB 408950 FLUCONAZOLE Inactive PROZAC 20 MG CAP Take one by mouth daily PROZAC 20 MG CAP 086000 FLUOXETINE HCL Inactive IBUPROFEN 600 MG TAB 1 po TID PRN IBUPROFEN 600 MG TAB 398114 IBUPROFEN Inactive VYVANSE 40 MG CAPS 1 daily, VYVANSE 40 MG CAPS LISDEXAMFETAMINE DIMESYLATE Inactive TRAZODONE HCL 100 MG TAB take 1 at bedtime TRAZODONE HCL 100 MG TAB 154756 TRAZODONE HCL Inactive AMITRIPTYLINE HCL 100 MG TAB one at hs AMITRIPTYLINE HCL 100 MG TAB 797189 AMITRIPTYLINE HCL Inactive AMLODIPINE BESYLATE 5 MG TABS 1 tablet by mouth daily AMLODIPINE BESYLATE 5 MG TABS 237563 AMLODIPINE BESYLATE Inactive LATUDA 80 MG TABS Take one by mouth daily LATUDA 80 MG TABS LURASIDONE HCL Inactive SAPHRIS 5 MG SUBL 1 po bid SAPHRIS 5 MG SUBL ASENAPINE MALEATE Inactive PREDNISONE 20 MG TAB 2 tabs daily for 4 days, 1 tab daily for 4 days, 1/2 tab daily for 4 days PREDNISONE 20 MG TAB 260064 PREDNISONE Inactive AMBIEN 5 MG ORAL TABS 1 tab at bedtime AMBIEN 5 MG ORAL TABS 825799 ZOLPIDEM TARTRATE Inactive PROZAC 20 MG ORAL CAPS 1 tab daily PROZAC 20 MG ORAL CAPS 427727 FLUOXETINE HCL Inactive ABILIFY 15 MG ORAL TABS 1 tab daily ABILIFY 15 MG ORAL TABS 883889 ARIPIPRAZOLE Inactive METOPROLOL TARTRATE 50 MG TAB 1 po bid METOPROLOL TARTRATE 50 MG TAB 169308 METOPROLOL TARTRATE Inactive TRAMADOL HCL 50 MG TABS 1-2 po TID PRN Pain TRAMADOL HCL 50 MG TABS 167183 TRAMADOL HCL Inactive PIROXICAM 20 MG CAPS 1 cap po qd PRN Pain PIROXICAM 20 MG CAPS 115936 PIROXICAM Inactive MINIPRESS 2 MG CAPS 4 cap po at night MINIPRESS 2 MG CAPS 682260 PRAZOSIN HCL Inactive MIRALAX PACK 1 po qd PRN Constipation MIRALAX PACK 524007 POLYETHYLENE GLYCOL 3350 Inactive METOPROLOL TARTRATE 25 MG ORAL TABS 1/2 tablet twice daily for heart rate and blood pressure METOPROLOL TARTRATE 25 MG ORAL TABS 211903 METOPROLOL TARTRATE Inactive VALIUM 5 MG TAB Take 1-2 tablets daily VALIUM 5 MG TAB 525003 DIAZEPAM Inactive FLAGYL 500 MG TAB 1 tablet by mouth bid FLAGYL 500 MG TAB 508392 METRONIDAZOLE Inactive DICLOFENAC POTASSIUM TABS Take 1 tablet twice a day (pt. is not sure of the dose.) DICLOFENAC POTASSIUM TABS DICLOFENAC POTASSIUM TABS Inactive ZITHROMAX Z-EARNEST 250 MG TABS 2 today and then 1 daily for 4 days ZITHROMAX Z-EARNEST 250 MG TABS 6834072 AZITHROMYCIN Inactive PREDNISONE 20 MG TABS 2 daily for 5 days then 1 daily for 5 days PREDNISONE 20 MG TABS 106258 PREDNISONE Inactive PROAIR HFA 108 (90 BASE) MCG/ACT AERS 2 puffs four times a day as needed 2015 PROAIR HFA 108 (90 BASE) MCG/ACT AERS ALBUTEROL SULFATE Inactive HYDROCODONE-ACETAMINOPHEN 5-325 MG TABS 1 to 2 four times a day as needed for pain use until can be seen by specialist HYDROCODONE- ACETAMINOPHEN 5-325 MG TABS 975105 HYDROCODONE-ACETAMINOPHEN Inactive TESSALON PERLES 100 MG CAP 1 to 2 tablets by mouth 3 times daily as needed for cough TESSALON PERLES 100 MG CAP 562502 BENZONATATE Inactive CHANTIX STARTING MONTH EARNEST 0.5 [...] Pain 2015 DICLOFENAC SODIUM 50 MG BANNER 583718 DICLOFENAC SODIUM Inactive TOPAMAX 50 MG ORAL TABS 1 tab twice daily TOPAMAX 50 MG ORAL TABS 590129 TOPIRAMATE Inactive VIIBRYD 10 MG ORAL TABS Take 1 tablet once a day VIIBRYD 10 MG ORAL TABS VILAZODONE HCL Inactive LEVOFLOXACIN 500 MG ORAL TABS po daily LEVOFLOXACIN 500 MG ORAL TABS 680618 LEVOFLOXACIN Inactive METHYLPREDNISOLONE 4 MG ORAL TABS po daily METHYLPREDNISOLONE 4 MG ORAL TABS 800338 METHYLPREDNISOLONE Inactive OXYCODONE HCL ER 10 MG ORAL T12A 1/2 tab by mouth every 4 hours prn OXYCODONE HCL ER 10 MG ORAL T12A OXYCODONE HCL Inactive FLAGYL 500 MG TAB 1 tablet by mouth bid FLAGYL 500 MG TAB 809043 METRONIDAZOLE Inactive MONISTAT 7 COMBO PACK WOODROW 100 & 2 MG-% (9GM) VAG KIT 1 applicatorful per vagina q pm x 7 MONISTAT 7 COMBO PACK WOODROW 100 & 2 MG-% (9GM) VAG KIT MICONAZOLE NITRATE Inactive BACTRIM DS 800-160 MG TABS 1 twice a day BACTRIM DS 800-160 MG TABS 345520 SULFAMETHOXAZOLE-TRIMETHOPRIM Inactive TRAMADOL HCL 50 MG TABS 1/2-1 tab TID PRN TRAMADOL HCL 50 MG TABS 312481 TRAMADOL HCL Inactive ABILIFY MAINTENA 400 MG IM SUSR 400mg injection every 26 days ABILIFY MAINTENA 400 MG IM SUSR ARIPIPRAZOLE Inactive KLONOPIN 1 MG ORAL TABS 1 tab po TID KLONOPIN 1 MG ORAL TABS 912177 CLONAZEPAM Inactive ADVAIR DISKUS 250-50 MCG/DOSE INH AEPB 1 puff twice a day for asthma ADVAIR DISKUS 250-50 MCG/DOSE INH AEPB FLUTICASONE- SALMETEROL Inactive BENADRYL 25 MG CAP 4 po at bedtime for insomnia BENADRYL 25 MG CAP DIPHENHYDRAMINE HCL Inactive CEFDINIR 300 MG CAPS by mouth twice a day CEFDINIR 300 MG CAPS 444285 CEFDINIR Inactive PREDNISONE 20 MG TAB 2 tabs daily for 3 days, 1 tab daily for 3 days, 1/2 tab daily for 2 days PREDNISONE 20 MG TAB 641627 PREDNISONE Inactive BACTRIM DS 800-160 MG TABS 1 po BID x 7 days BACTRIM DS 800-160 MG TABS 19820521 SULFAMETHOXAZOLE-TRIMETHOPRIM Inactive DIFLUCAN 150 MG TABS 1 pill every other day x 2 doses DIFLUCAN 150 MG TABS 012887 FLUCONAZOLE Inactive BACTRIM DS 800-160 MG TABS 1 pill by mouth twice daily BACTRIM DS 800-160 MG TABS 19820521 SULFAMETHOXAZOLE-TRIMETHOPRIM Inactive KEFLEX 500 MG CAP 1 po TID x 10 days KEFLEX 500 MG CAP 755748 CEPHALEXIN Inactive Advance Directives Directive Description Start [...] % 11.6-14.8 platelet count 394 10^3/MM^3 10*3/mm3 647-172 3573/01/11 leukocyte count, blood 13.8 10^3/MM^3 10*3/mm3 4.6-10.2 [...] 369 10^3/MM^3 10*3/mm3 142-424 Lab Report: Chlamydia/GC [id number] - Lab chlamydia DNA probe NOT DETECTED NOT DETECTED Lab Report: Chlamydia/GC [id number] - Microbiology Neisseria gonorrhoeae DNA probe NOT DETECTED NOT DETECTED Lab Report: Comp. Metabolic Panel - Chemistry sodium, serum 140 mmol/L 655-975 8742/08/08 carbon dioxide, venous blood 33.7 mmol/L 21.0-32.0 potassium, serum 5.0 mmol/L 3.5-5.2 chloride, serum 103 mmol/L 98-107 blood glucose 80 mg/dL 65-110 urea nitrogen, blood 13 mg/dL 7-18 creatinine, serum 0.88 mg/dL 0.55-1.30 alanine aminotransferase (SGPT), serum 54 U/L aspartate aminotransferase (SGOT), serum 29 U/L 15-37 calcium, serum 9.7 mg/dL 8.5-10.1 bilirubin, serum, total 0.30 mg/dL 0.00-1.00 sodium, serum 139 mmol/L 965-076 8716/12/22 carbon dioxide, venous blood 26.8 mmol/L 21.0-32.0 potassium, serum 4.2 mmol/L 3.5-5.2 chloride, serum 103 mmol/L 98-107 blood glucose 115 mg/dL 65-110 urea nitrogen, blood 20 mg/dL - creatinine, serum 0.90 mg/dL 0.55-1.30 alanine aminotransferase (SGPT), serum 38 U/L aspartate aminotransferase (SGOT), serum 19 U/L 15-37 calcium, serum 8.6 mg/dL 8.5-10.1 bilirubin, serum, total 0.30 mg/dL 0.00-1.00 sodium, serum 139 mmol/L 008-921 2022/01/11 carbon dioxide, venous blood 26.6 mmol/L 21.0-32.0 potassium, serum 4.1 mmol/L 3.5-5.2 chloride, serum 100 mmol/L 98-107 blood glucose 86 mg/dL 65-110 urea nitrogen, blood 16 mg/dL - creatinine, serum 1.00 mg/dL 0.55-1.30 alanine aminotransferase (SGPT), serum 48 U/L aspartate aminotransferase (SGOT), serum 17 U/L 15-37 calcium, serum 9.1 mg/dL 8.5-10.1 bilirubin, serum, total 0.40 mg/dL 0.00-1.00 sodium, serum 142 mmol/L 463-813 3301/06/08 carbon dioxide, venous blood 27.6 mmol/L 21.0-32.0 [...] mg/dL Encounters Code Encounter Date Provider Facility CPT-77756 Level 3 Est. Patient 10:40:11 MECHATRONICS TECHNOLOGIST Ahmet Carbajal MD [facility] CPT-47581 Level 3 Est. Patient 15:07:06 MECHATRONICS TECHNOLOGIST Neeraj Collins MD [facility] CPT-59712 Level 4 Est. Patient 14:45:00 MECHATRONICS TECHNOLOGIST Ahmet Carbajal MD [facility] CPT-65652 Level 3 Est. Patient 13:59:59 CDT Luigi Martínez APRN [facility] CPT-41254 Level 3 Est. Patient 18:18:53 CDT Neeraj Collins MD [facility] CPT-95215 Level 3 Est. Patient 15:50:44 CDT Vishal Hui MD [facility] CPT-52181 Level 3 Est. Patient 11:36:17 CDT Ahmet Carbajal MD [facility] CPT-51465 Level 3 Est. Patient 13:29:16 CDT Vishal Hui MD [facility] CPT-99925 Level 3 Est. Patient 14:27:52 CDT Neeraj Collins MD [facility] CPT-51405 Level 3 Est. Patient 08:56:03 CDT Luigi Martínez [facility] CPT-75045 Level 4 Est. Patient 12:11:48 CDT Fabiola Johnson [facility] CPT-74005 Level 3 New Patient 16:53:37 CDT Albert Caldera MD [facility] CPT-23778 Level 3 Est. Patient 11:25:49 CDT Renzo Thornton DO [facility] CPT-51599 Level 3 Est. Patient 15:22:01 CDT Ahmet Carbajal MD [facility] CPT-05197 Level 4 Est. Patient 09:00:51 MECHATRONICS TECHNOLOGIST Vishal Hui MD [facility] CPT-63642 Level 3 Est. Patient 11:37:33 MECHATRONICS TECHNOLOGIST Vishal Hui MD [facility] CPT-80419 Level 3 Est. Patient 08:41:09 MECHATRONICS TECHNOLOGIST Vishal Hui MD [facility] CPT-14472 Level 4 Est. Patient 10:19:35 MECHATRONICS TECHNOLOGIST Vishal Hui MD [facility] CPT-81013 Level 3 Est. Patient 13:35:45 CDT Vishal Hui MD [facility] CPT-75493 Level 4 Est. Patient 10:08:37 CDT Vishal uHi MD [facility] CPT-26674 Level 3 Est. Patient 11:22:10 CDT Vishal Hui MD [facility] CPT-87075 Level 3 Est. Patient 11:03:32 CDT Sahara Rodriguez MD PhD [facility] CPT-69133 Level 3 Est. Patient 09:41:35 CDT Vishal Hui MD [facility] CPT-47520 Level 3 Est. Patient 12:00:41 CDT Neeraj Collins MD [facility] CPT-88229 Level 3 Est. Patient 09:16:24 CDT Vishal Hui MD [facility] CPT-53967 Level 4 Est. Patient 13:59:09 CDT Neeraj Collins MD [facility] CPT-14922 Level 3 Est. Patient 15:19:43 CDT Renzo Thornton [facility] CPT-46536 Level 3 Est. Patient 18:10:26 CDT Sahara Rodriguez MD PhD [facility]-97067 Level 3 Est. Patient 14:49:50 CDT Vishal Hui MD [facility] CPT-16010 Level 4 Est. Patient 18:41:46 CDT Neeraj Collins MD [facility] CPT-87433 Level 4 Est. Patient 09:18:38 MECHAT[employer] TECH[employer]IST Vishal Hui MD [facility] CPT-11343 Level 3 Est. Patient 14:43:55 MECHATRONICS TECHNOLOGIST Vishal Hui MD [facility] CPT-95442 Level 3 Est. Patient 15:26:33 MECHATRONICS TECHNOLOGIST Sahara Rodriguez MD PhD [facility] CPT-30238 Level 3 Est. Patient 10:32:14 MECHATRONICS TECHNOLOGIST Vishal Hui MD [facility] CPT-52935 Level 3 Est. Patient 15:12:52 MECHATRONICS TECHNOLOGIST Vishal Hui MD [facility] CPT-01354 Level 4 Est. Patient 09:19:27 CDT Vishal Hui MD [facility] CPT-34137 Level 3 Est. Patient 15:53:00 CDT Renzo Thornton [facility] CPT-75948 Level 3 Est. Patient 15:50:30 CDT Renzo Thornton [facility] CPT-38388 Level 3 Est. Patient 16:55:24 CDT Vishal Hui MD [facility] Procedures Code Procedure Name Date Entry Date Standard Description CPT-10181 Abx/Therapy Injection 17:34:30 MECHATRONICS TECHNOLOGIST CPT-25888 Nexplanon Removal with Reinsertion 14:09:32 CDT CPT-J7307 Nexplanon (Implant) 14:09:32 CDT CPT-OV Office Visit 14:09:32 CDT CPT-71241 UA w micro - LAB USE ONLY 16:21:13 CDT CPT-00560 Wet Mount - LAB USE ONLY 16:21:13 CDT CPT-65540 First Vx - Ix admin for Medicare patients 14:37:47 CDT CPT-57071 Fluzone Preservative Free Intramuscular Suspension 14:37 :47 CDT CPT-52083 Abx/Therapy Injection 13:54:22 CDT CPT-12840 Abx/Therapy Injection 08:47:09 CDT CPT-60215 Abx/Therapy Injection 13:29:56 CDT CPT-67574 Abx/Therapy Injection 08:36:16 CDT CPT-54210 Wet Mount - LAB USE ONLY 17:44:58 CDT CPT-51443 UA w micro - LAB USE ONLY 17:44:58 CDT CPT-01611 CMP - LAB USE ONLY 17:44:58 CDT CPT-89179 Venipuncture Draw Fee 17:44:58 CDT CPT-12125 Cervical Min 4V - XRAY USE ONLY 09:01:40 CDT CPT-22799 Chest 2V Frontal and Lat - XRAY USE ONLY 11:06:31 CDT CPT-18421 EKG Trac and Interp - XRAY USE ONLY 11:31:43 CDT 08/26 CPT-J3420 Vitamin B12 1000mcg (Cyanocobalamin) 08:10:26 MECHATRONICS TECHNOLOGIST 04/12 CPT-46699 Abx/Therapy Injection 08:10:26 MECHATRONICS TECHNOLOGIST CPT-G0438 Initial Annual Wellness Exam 19:01:01 MECHATRONICS TECHNOLOGIST CPT-J3420 Vitamin B12 1000mcg (Cyanocobalamin) 16:57:46 CDT 08/14 CPT-60526 Recombivax HB Injection Suspension 5 MCG/0.5ML 08:37:50 MECHATRONICS TECHNOLOGIST CPT-11266 Immunization Single Admin 08:37:50 MECHATRONICS TECHNOLOGIST CPT-J3420 Vitamin B12 1000mcg (Cyanocobalamin) 08:32:16 MECHATRONICS TECHNOLOGIST 03/11 CPT-68001 Abx/Therapy Injection 08:32:16 MECHATRONICS TECHNOLOGIST CPT-03085 Chest 2V Frontal and Lat 11:46:38 MECHATRONICS TECHNOLOGIST CPT-32762 Venipuncture Draw Fee 09:12:45 MECHATRONICS TECHNOLOGIST CPT-J3420 Vitamin B12 1000mcg (Cyanocobalamin) 08:50:15 MECHATRONICS TECHNOLOGIST 02/08 CPT-86405 Abx/Therapy Injection 08:50:15 MECHATRONICS TECHNOLOGIST CPT-Cryo Cryotherapy 10:19:35 MECHATRONICS TECHNOLOGIST CPT-000 Give Appropriate Flu Vaccine 09:22:16 CDT CPT-J3420 Vitamin B12 1000mcg (Cyanocobalamin) 19:08:57 CDT 01/11 CPT-56544 Abx/Therapy Injection 19:08:57 CDT CPT-J3420 Vitamin B12 1000mcg (Cyanocobalamin) 08:19:08 CDT 12/11 CPT-25520 Abx/Therapy Injection 08:19:08 CDT CPT-J3420 Vitamin B12 1000mcg (Cyanocobalamin) 14:48:00 CDT 11/09 CPT-68053 Abx/Therapy Injection 14:47:59 CDT CPT-J3420 Vitamin B12 1000mcg (Cyanocobalamin) 08:34:04 CDT 10/09 CPT-25223 Abx/Therapy Injection 08:34:04 CDT CPT-J3420 Vitamin B12 1000mcg (Cyanocobalamin) 09:18:52 CDT 09/11 CPT-59164 Abx/Therapy Injection 09:18:52 CDT CPT-J3420 Vitamin B12 1000mcg (Cyanocobalamin) 08:35:44 CDT 09/04 CPT-16361 Abx/Therapy Injection 08:35:44 CDT CPT-54250 Immunization Single Admin 11:07:16 CDT CPT-42712 Hepatitis B adult IM 11:07:16 CDT CPT-J3420 Vitamin B12 1000mcg (Cyanocobalamin) 11:00:49 CDT 08/28 CPT-J1040 Depo Medrol 80 mg (Methyl Prednisolone Acetate) 11:00: 49 CDT CPT-33736 Abx/Therapy Injection 11:00:49 CDT CPT-J1040 Depo Medrol 80 mg (Methyl Prednisolone Acetate) 09:16: 23 CDT CPT-J3420 Vitamin B12 1000mcg (Cyanocobalamin) 08:27:05 CDT 08/20 CPT-27126 Abx/Therapy Injection 08:27:05 CDT CPT-38900 Recombivax HB Injection Suspension 5 MCG/0.5ML 10:00:41 CDT CPT-34631 Administration single or combination vaccine inc oral 10 :00:41 CDT CPT-65523 Sono transvag pelvis non OB uterus ovaries cervix 16:36: 57 CDT CPT-61170 LS spine comp w obliq 09:50:55 MECHATRONICS TECHNOLOGIST CPT-60507 Abd compl w upright 09:50:55 MECHATRONICS TECHNOLOGIST CPT-J1100 Decadron 4mg (Dexamethasone) 15:51:24 MECHATRONICS TECHNOLOGIST CPT-J1030 Depo Medrol 40 mg (Methyl Prednisolone Acetate) 15:51: 24 MECHATRONICS TECHNOLOGIST CPT-18245 Abx/Therapy Injection 15:51:24 MECHATRONICS TECHNOLOGIST CPT-J1100 Decadron 4mg (Dexamethasone) 15:26:33 MECHATRONICS TECHNOLOGIST CPT-J1030 Depo Medrol 40 mg (Methyl Prednisolone Acetate) 15:26: 33 MECHATRONICS TECHNOLOGIST CPT-68763 Sono retroperitoneal complete kidneys and bladder 17:15: 30 CDT CPT-14089 Abd compl w upright 16:09:25 CDT CPT-J1100 Decadron 8mg (Dexamethasone) 17:07:57 CDT CPT-02365 Abx/Therapy Injection 17:07:57 CDT CPT-J1100 Decadron 8mg (Dexamethasone) 16:55:24 CDT CPT-38338 Chest 2V Frontal and Lat 16:32:44 CDT
--- OUTSIDE RECORDS SUMMARY | 2016-11-04 20:33 | XMS REPORT | Clinical Summary ---
Author Author Admin, E Organization [facility] Address Unknown Phone Unavailable Allergies, Adverse Reactions, [...] Other abnormal glucose Polyarthralgia 719.49 Active Vishal Hiu MD Pain in joint involving multiple sites [...] upper quadrant Chest pain, acute 786.50 Resolved Ablert Caldera MD Unspecified chest pain Localized adiposity 278.1 Resolved Vishal Hui MD Localized adiposity Shortness of breath 786.05 Resolved Vishal Hui MD Shortness of breath Nocturnal hypoxia 799.02 Active Fabiola Johnson BRA[employer]ER [employer]URNACE Hypoxemia Neck pain 723.1 Resolved Vishal Hui [...] MD Flank pain, right ICD-789.09 Inactive Vishal Hiu MD G E R D ICD-530.81 Inactive Vishal uHi MD Smoker/tobacco use disorder-smoking cessation discussed ICD-305.1 [...] as needed for pseudoseizures or anxiety CLONAZEPAM 76112221862 Active Ahmet Carbajal MD Active HYDROCODONE-ACETAMINOPHEN 5-325 MG ORAL TABS 1 tab two times a day HYDROCODONE-ACETAMINOPHEN 77334897436 No Longer Active Ahmet Carbajal MD Active LAMICTAL 100 MG ORAL TABS 1 tab 2 times qd. LAMOTRIGINE 63890882204 Active Ahmet Carbajal MD Active PREDNISONE 20 MG TABS 2 daily for 5 days then 1 daily for 5 days PREDNISONE 67243129176 No Longer Active Ahmet Carbajal MD Active FLUTICASONE PROPIONATE 50 MCG/ACT SUSP 1 to 2 sprays each nostril daily for allergies FLUTICASONE PROPIONATE 91395678665 Active Tila Valenzuela Active GUAIFENESIN-CODEINE 100-10 MG/5ML SYRP 5ml every 4 to 6 hours as needed for cough GUAIFENESIN-CODEINE 61552170726 Active Ahmet Carbajal MD Active BENADRYL 25 MG CAP 4 po at bedtime for insomnia DIPHENHYDRAMINE HCL 81058102649 No Longer Active Ahmet Carbajal MD Active ADVAIR DISKUS 250-50 MCG/DOSE INH AEPB 1 puff twice a day for asthma FLUTICASONE-SALMETEROL 49739222483 No Longer Active Ahmet Carbajal MD Active KLONOPIN 1 MG ORAL TABS 1 tab po TID CLONAZEPAM 05110722949 No Longer Active Ahmet Carbajal MD Active ABILIFY MAINTENA 400 MG IM SUSR 400mg injection every 26 days ARIPIPRAZOLE 19040279958 No Longer Active Ahmet Carbajal MD Active HALOPERIDOL 10 MG ORAL TABS 1 tab q.d HALOPERIDOL 72214323787 Active Ahmet Carbajal MD Active ASPIRIN 325 MG ORAL TABS 1 tab q.d ASPIRIN 39693738893 Active Ahmet Carbajal MD Active TRAMADOL HCL 50 MG TABS 1/2-1 tab TID PRN TRAMADOL HCL 32526524889 No Longer Active Ahmet Carbajal MD Active BACTRIM DS 800-160 MG TABS 1 twice a day SULFAMETHOXAZOLE- TRIMETHOPRIM 39774520427 No Longer Active Ahmet Carbajal MD Active PROAIR HFA 108 (90 BASE) MCG/ACT AERS 2 puffs four times a day as needed 2015 ALBUTEROL SULFATE 66670991874 Active Ahmet Carbajal MD Active EQ NICOTINE 21 MG/24HR TRANS PT24 Apply daily to stop smoking NICOTINE 69051363984 Active Ahmet Carbajal MD Active MONISTAT 7 COMBO PACK WOODROW 100 & 2 MG-% (9GM) VAG KIT 1 applicatorful per vagina q pm x 7 MICONAZOLE NITRATE 95607920228 No Longer Active Ahmet Carbajal MD Active FLAGYL 500 MG TAB 1 tablet by mouth bid METRONIDAZOLE 55069105903 No Longer Active Ahmet Carbajal MD Active OXYCODONE HCL ER 10 MG ORAL T12A 1/2 tab by mouth every 4 hours prn OXYCODONE HCL 63578011861 No Longer Active Ahmet Carbajal MD Active METHYLPREDNISOLONE 4 MG ORAL TABS po daily METHYLPREDNISOLONE 65315981516 No Longer Active Ahmet Carbajal MD Active LEVOFLOXACIN 500 MG ORAL TABS po daily LEVOFLOXACIN 70488240912 No Longer Active Ahmet Carbajal MD Active VIIBRYD 10 MG ORAL TABS Take 1 tablet once a day VILAZODONE HCL 65698141780 No Longer Active Ahmet Carbajal MD Active TOPAMAX 50 MG ORAL TABS 1 tab twice daily TOPIRAMATE 98832774730 No Longer Active Ahmet Carbajal MD Active DICLOFENAC SODIUM 50 MG TBEC 1 tablet by mouth four times daily PRN Pain 2015 DICLOFENAC SODIUM 24923714973 No Longer Active Ahmet Carbajal MD Active ADZENYS XR-ODT 6.3 MG ORAL TBED 1 tab po daily for ADHD AMPHETAMINE 80599917882 No Longer Active Ahmet Carbajal MD Active CHANTIX 1 MG TABS 1 twice a day to help quit smoking VARENICLINE TARTRATE 23055887444 No Longer Active Dipika Burgos MD Active CHANTIX STARTING MONTH EARNEST 0.5 MG X 11 & 1 MG X 42 TABS take as directed 2015 VARENICLINE TARTRATE 58369142156 No Longer Active Dipika Burgos MD Active TESSALON PERLES 100 MG CAP 1 to 2 tablets by mouth 3 times daily as needed for cough BENZONATATE 90180420786 No Longer Active Luigi Martínez APRN Active IMITREX 50 MG ORAL TABS 0.5 po x 1 PRN Headache. May repeat dose x 1 in 2 hours if needed SUMATRIPTAN SUCCINATE 46927857268 Active Ahmet Carbajal MD Active HYDROCODONE-ACETAMINOPHEN 5-325 MG TABS 1 to 2 four times a day as needed for pain use until can be seen by specialist HYDROCODONE- ACETAMINOPHEN 19640822960 No Longer Active Vishal Hui MD Active PROAIR HFA 108 (90 BASE) MCG/ACT AERS 2 puffs four times a day as needed 2015 ALBUTEROL SULFATE 76845821592 No Longer Active Vishal Hui MD Active PREDNISONE 20 MG TABS 2 daily for 5 days then 1 daily for 5 days PREDNISONE 26456397400 No Longer Active Vishal Hui MD Active ZITHROMAX Z-EARNEST 250 MG TABS 2 today and then 1 daily for 4 days AZITHROMYCIN 82542653871 No Longer Active Vishal Hui MD Active DICLOFENAC POTASSIUM TABS Take 1 tablet twice a day (pt. is not sure of the dose.) DICLOFENAC POTASSIUM TABS 30560533810 No Longer Active Vishal Hui MD Active VERAPAMIL HCL ER 120 MG ORAL CR-TABS Take 1 tablet by mouth twice a day. VERAPAMIL HCL 32141736820 Active Vishal Hui MD Active FLAGYL 500 MG TAB 1 tablet by mouth bid METRONIDAZOLE 22629327519 No Longer Active Vishal Hui MD Active FLUTICASONE PROPIONATE 50 MCG/ACT SUSP 2 sprays each nostril daily before bed. FLUTICASONE PROPIONATE 69295162108 Active Fabiola Johnson APRN Active VALIUM 5 MG TAB Take 1-2 tablets daily DIAZEPAM 69028268478 No Longer Active Fabiola Johnson APRN Active METOPROLOL TARTRATE 25 MG ORAL TABS 1/2 tablet twice daily for heart rate and blood pressure METOPROLOL TARTRATE 40255978451 No Longer Active Fabiola Johnson APRN Active MIRALAX ORAL POWD 17GMS DAILY IN WATER POLYETHYLENE GLYCOL 3350 36168604332 Active Vishal Hui MD Active MIRALAX PACK 1 po qd PRN Constipation POLYETHYLENE GLYCOL 3350 42859150008 No Longer Active Ahmet Carbajal MD Active MINIPRESS 2 MG CAPS 4 cap po at night PRAZOSIN HCL 34791019330 No Longer Active Ahmet Carbajal MD Active PIROXICAM 20 MG CAPS 1 cap po qd PRN Pain PIROXICAM 84947677601 No Longer Active Ahmet Carbajal MD Active TRAMADOL HCL 50 MG TABS 1-2 po TID PRN Pain TRAMADOL HCL 65392221379 No Longer Active Ahmet Carbajal MD Active METOPROLOL TARTRATE 50 MG TAB 1 po bid METOPROLOL TARTRATE 03400836282 No Longer Active Ahmet Carbajal MD Active ABILIFY 15 MG ORAL TABS 1 tab daily ARIPIPRAZOLE 53690867685 No Longer Active Ahmet Carbajal MD Active PROZAC 20 MG ORAL CAPS 1 tab daily FLUOXETINE HCL 20245363345 No Longer Active Ahmet Carbajal MD Active AMBIEN 5 MG ORAL TABS 1 tab at bedtime ZOLPIDEM TARTRATE 80922523769 No Longer Active Ahmet Carbajal MD Active PREDNISONE 20 MG TAB 2 tabs daily for 4 days, 1 tab daily for 4 days, 1/2 tab daily for 4 days PREDNISONE 79025997977 No Longer Active Ahmet Carbajal MD Active KEFLEX 500 MG CAP 1 po TID x 10 days CEPHALEXIN 78398958069 No Longer Active Vishal Hui MD Active SAPHRIS 5 MG SUBL 1 po bid ASENAPINE MALEATE 86073794237 No Longer Active Jillina Frazell [employer] Active LATUDA 80 MG TABS Take one by mouth daily LURASIDONE HCL 59113384239 No Longer Active Jillina Frazell [employer]NA[employer] Active AMLODIPINE BESYLATE 5 MG TABS 1 tablet by mouth daily AMLODIPINE BESYLATE 96058368177 No Longer Active Jillina Frazell [employer] Active AMITRIPTYLINE HCL 100 MG TAB one at hs AMITRIPTYLINE HCL 74681698114 No Longer Active Vishal Hui MD Active TRAZODONE HCL 100 MG TAB take 1 at bedtime TRAZODONE HCL 43149436425 No Longer Active Vishal Hui MD Active VYVANSE 40 MG CAPS 1 daily, LISDEXAMFETAMINE DIMESYLATE 19850267248 No Longer Active Vishal Hui MD Active IBUPROFEN 600 MG TAB 1 po TID PRN IBUPROFEN 92292411775 No Longer Active Vishal Hui MD Active PROZAC 20 MG CAP Take one by mouth daily FLUOXETINE HCL 55666782185 No Longer Active Vishal Hui MD Active ZOFRAN 4 MG TABS 1 po q6hr PRN Nausea ONDANSETRON HCL Active Vishal Hui MD Active BACTRIM DS 800-160 MG TABS 1 pill by mouth twice daily SULFAMETHOXAZOLE-TRIMETHOPRIM 02027076691 No Longer Active Sahara Rodriguez MD PhD Active DIFLUCAN 150 MG TAB 1 tablet by mouth daily FLUCONAZOLE 73145182193 No Longer Active Vishal Hui MD Active TIZANIDINE HCL 4 MG TABS 1 po q6hr PRN Muscle Spasm/Back Pain TIZANIDINE HCL 11967249658 Active Vishal Hui MD Active CLINDAMYCIN HCL 150 MG CAPS 1 four times a day CLINDAMYCIN HCL 68332841781 No Longer Active Neeraj Collins MD Active KEFLEX 500 MG ORAL CAPS 1 cap QID by mouth CEPHALEXIN 29698020441 No Longer Active Neeraj Collins MD Active DIFLUCAN 150 MG TABS 1 pill every other day x 2 doses FLUCONAZOLE 78515148221 No Longer Active Sahara Rodriguez MD PhD Active MELATONIN 3 MG CAPS 2 po q hs MELATONIN 93674526795 No Longer Active Sahara Rodriguez MD PhD Active MULTIVITAMINS CAPS Take one by mouth daily MULTIPLE VITAMIN 41466316997 No Longer Active Sahara Rodriguez MD PhD Active BACTRIM DS 800-160 MG TAB 1 tab by mouth twice daily TRIMETHOPRIM-SULFAMETHOXAZOLE 69115566145 No Longer Active Sahara Rodriguez MD PhD Active [facility] PROBIOTIC ORAL CHEW 2 daily po PROBIOTIC PRODUCT 95865539432 No Longer Active Sahara Rodriguez MD PhD Active BACTRIM DS 800-160 MG TABS 1 po BID x 7 days SULFAMETHOXAZOLE-TRIMETHOPRIM 66185351907 No Longer Active Vishal Hui MD Active CHANTIX STARTING MONTH EARNEST 0.5 MG X 11 & 1 MG X 42 TABS 0.5mg daily for 3 days , then 0.5mg BID for 4 days, then 1mg BID VARENICLINE TARTRATE 09644461247 No Longer Active TAMARA Gray Active VERAPAMIL HCL CR 120 MG TAB CR 1 po bid VERAPAMIL HCL 79505618516 No Longer Active Vishal Hui MD Active METOPROLOL SUCCINATE 50 MG TB24 1 tablet by mouth daily METOPROLOL SUCCINATE 86092047131 No Longer Active Vishal Hui MD Active SAPHRIS 10 MG SUBL 1 tab po bid ASENAPINE MALEATE 64632422942 No Longer Active Vishal Hui MD Active LISINOPRIL 20 MG TABS 1 tab po qd LISINOPRIL 92064520433 No Longer Active Vishal Hui MD Active LATUDA 20 MG TABS Take one by mouth daily LURASIDONE HCL 05374549107 No Longer Active Vishal Hui MD Active TRAZODONE HCL 50 MG TABS 1/2 tab po qd prn for anxiety TRAZODONE HCL 15114787065 No Longer Active Vishal Hui MD Active OMEPRAZOLE 20 MG TBEC 1 po q a.m. 30min prior to first food intake OMEPRAZOLE 51319267758 Active Vishal Hui MD Active RANITIDINE HCL 150 MG CAPS 1 twice a day RANITIDINE HCL 09875564244 Active Jioral Martínez APRN Active LINZESS 290 MCG CAPS Take one by mouth daily LINACLOTIDE 69376365019 No Longer Active Vishal Hui MD Active SAPHRIS 5 MG SUBL 1 tab po qd ASENAPINE MALEATE 54577252573 No Longer Active Vishal Hui MD Active ZALEPLON 10 MG CAPS 1 cap po every other night ZALEPLON 43641845150 No Longer Active Vishal Hui MD Active LYRICA 50 MG CAPS 1 tab po TID PREGABALIN 48128457916 No Longer Active Vishal Hui MD Active LORATADINE 10 MG TABS 1 tab po qd LORATADINE 15562299415 No Longer Active Vishal Hui MD Active VERAPAMIL HCL ER 180 MG CR-TABS 1 tab po bid VERAPAMIL HCL 55681068653 No Longer Active Vishal Hui MD Active MIRALAX POWD 1 capfull once daily POLYETHYLENE GLYCOL 3350 11237708346 No Longer Active Vishal Hui MD Active PREDNISONE 20 MG TABS 1 tab po qd PREDNISONE 15425970866 No Longer Active Renzo Thornton DO Active LEVOFLOXACIN 500 MG TABS 1 tab po qd LEVOFLOXACIN 39570919926 No Longer Active Renzo Thorntno DO Active BUSPIRONE HCL 15 MG TABS 1 tab po TID BUSPIRONE HCL 67676518056 No Longer Active Renzo Thornton DO Active BENZTROPINE MESYLATE 1 MG TABS 1 tab po qd BENZTROPINE MESYLATE 09135652199 No Longer Active Renzo Thornton DO Active ATENOLOL 25 MG TABS 1 tab po qd ATENOLOL 39874419640 No Longer Active Renzo Thornton DO Active ESCITALOPRAM OXALATE 20 MG TABS 1 tab po qd ESCITALOPRAM OXALATE 64394317547 No Longer Active Renzo Thornton DO Active ADVAIR DISKUS 250-50 MCG/DOSE AEPB 1 puff BID FLUTICASONE-SALMETEROL 76397369823 No Longer Active Renzo Thornton DO Active PREDNISONE 20 MG TAB 2 tabs daily for 3 days, 1 tab daily for 3 days, 1/2 tab daily for 2 days PREDNISONE 09621041711 No Longer Active Vishal Hui MD Active CEFDINIR 300 MG CAPS by mouth twice a day CEFDINIR 42238112355 No Longer Active Vishal Hui MD Active LANSOPRAZOLE 30 MG CPDR 1 cap po qd LANSOPRAZOLE 96362429044 No Longer Active Vishal Hui MD Active BACLOFEN 20 MG TABS 1 tab po tid BACLOFEN 07652792620 No Longer Active Vishal Hui MD Active ADVAIR DISKUS 250-50 MCG/DOSE AEPB 1 puff BID ADVAIR DISKUS 250-50 MCG/DOSE AEPB FLUTICASONE-SALMETEROL Inactive ESCITALOPRAM OXALATE 20 MG TABS 1 tab po qd ESCITALOPRAM OXALATE 20 MG TABS 954967 ESCITALOPRAM OXALATE Inactive ATENOLOL 25 MG TABS 1 tab po qd ATENOLOL 25 MG TABS 274661 ATENOLOL Inactive BENZTROPINE MESYLATE 1 MG TABS 1 tab po qd BENZTROPINE MESYLATE 1 MG TABS 939644 BENZTROPINE MESYLATE Inactive BUSPIRONE HCL 15 MG TABS 1 tab po TID BUSPIRONE HCL 15 MG TABS 689519 BUSPIRONE HCL Inactive LEVOFLOXACIN 500 MG TABS 1 tab po qd LEVOFLOXACIN 500 MG TABS 624064 LEVOFLOXACIN Inactive PREDNISONE 20 MG TABS 1 tab po qd PREDNISONE 20 MG TABS 689998 PREDNISONE Inactive MIRALAX POWD 1 capfull once daily MIRALAX POWD 025460 POLYETHYLENE GLYCOL 3350 Inactive VERAPAMIL HCL ER 180 MG CR-TABS 1 tab po bid VERAPAMIL HCL ER 180 MG CR-TABS VERAPAMIL HCL Inactive LORATADINE 10 MG TABS 1 tab po qd LORATADINE 10 MG TABS 339924 LORATADINE Inactive LYRICA 50 MG CAPS 1 tab po TID LYRICA 50 MG CAPS PREGABALIN Inactive ZALEPLON 10 MG CAPS 1 cap po every other night ZALEPLON 10 MG CAPS 929082 ZALEPLON Inactive SAPHRIS 5 MG SUBL 1 tab po qd SAPHRIS 5 MG SUBL ASENAPINE MALEATE Inactive TRAZODONE HCL 50 MG TABS 1/2 tab po qd prn for anxiety TRAZODONE HCL 50 MG TABS 940217 TRAZODONE HCL Inactive LATUDA 20 MG TABS Take one by mouth daily LATUDA 20 MG TABS LURASIDONE HCL Inactive LISINOPRIL 20 MG TABS 1 tab po qd LISINOPRIL 20 MG TABS 822745 LISINOPRIL Inactive SAPHRIS 10 MG SUBL 1 [...] twice daily BACTRIM DS 800-160 MG TAB 158401 TRIMETHOPRIM-SULFAMETHOXAZOLE Inactive MULTIVITAMINS CAPS Take one by mouth daily MULTIVITAMINS CAPS MULTIPLE VITAMIN Inactive MELATONIN 3 MG CAPS 2 po q hs MELATONIN 3 MG CAPS 516465 MELATONIN Inactive KEFLEX 500 MG ORAL CAPS 1 cap QID by mouth KEFLEX 500 MG ORAL CAPS 557360 CEPHALEXIN Inactive CLINDAMYCIN HCL 150 MG CAPS 1 four times a day CLINDAMYCIN HCL 150 MG CAPS 19740326 CLINDAMYCIN HCL Inactive DIFLUCAN 150 MG TAB 1 tablet by mouth daily DIFLUCAN 150 MG TAB 844676 FLUCONAZOLE Inactive PROZAC 20 MG CAP Take one by mouth daily PROZAC 20 MG CAP 163561 FLUOXETINE HCL Inactive IBUPROFEN 600 MG TAB 1 po TID PRN IBUPROFEN 600 MG TAB 742946 IBUPROFEN Inactive VYVANSE 40 MG CAPS 1 daily, VYVANSE 40 MG CAPS LISDEXAMFETAMINE DIMESYLATE Inactive TRAZODONE HCL 100 MG TAB take 1 at bedtime TRAZODONE HCL 100 MG TAB 678918 TRAZODONE HCL Inactive AMITRIPTYLINE HCL 100 MG TAB one at hs AMITRIPTYLINE HCL 100 MG TAB 091457 AMITRIPTYLINE HCL Inactive AMLODIPINE BESYLATE 5 MG TABS 1 tablet by mouth daily AMLODIPINE BESYLATE 5 MG TABS 865058 AMLODIPINE BESYLATE Inactive LATUDA 80 MG TABS Take one by mouth daily LATUDA 80 MG TABS LURASIDONE HCL Inactive SAPHRIS 5 MG SUBL 1 po bid SAPHRIS 5 MG SUBL ASENAPINE MALEATE Inactive PREDNISONE 20 MG TAB 2 tabs daily for 4 days, 1 tab daily for 4 days, 1/2 tab daily for 4 days PREDNISONE 20 MG TAB 160195 PREDNISONE Inactive AMBIEN 5 MG ORAL TABS 1 tab at bedtime AMBIEN 5 MG ORAL TABS 199449 ZOLPIDEM TARTRATE Inactive PROZAC 20 MG ORAL CAPS 1 tab daily PROZAC 20 MG ORAL CAPS 512202 FLUOXETINE HCL Inactive ABILIFY 15 MG ORAL TABS 1 tab daily ABILIFY 15 MG ORAL TABS 695788 ARIPIPRAZOLE Inactive METOPROLOL TARTRATE 50 MG TAB 1 po bid METOPROLOL TARTRATE 50 MG TAB 990787 METOPROLOL TARTRATE Inactive TRAMADOL HCL 50 MG TABS 1-2 po TID PRN Pain TRAMADOL HCL 50 MG TABS 670447 TRAMADOL HCL Inactive PIROXICAM 20 MG CAPS 1 cap po qd PRN Pain PIROXICAM 20 MG CAPS 147969 PIROXICAM Inactive MINIPRESS 2 MG CAPS 4 cap po at night MINIPRESS 2 MG CAPS 013709 PRAZOSIN HCL Inactive MIRALAX PACK 1 po qd PRN Constipation MIRALAX PACK 283177 POLYETHYLENE GLYCOL 3350 Inactive METOPROLOL TARTRATE 25 MG ORAL TABS 1/2 tablet twice daily for heart rate and blood pressure METOPROLOL TARTRATE 25 MG ORAL TABS 076650 METOPROLOL TARTRATE Inactive VALIUM 5 MG TAB Take 1-2 tablets daily VALIUM 5 MG TAB 071165 DIAZEPAM Inactive FLAGYL 500 MG TAB 1 tablet by mouth bid FLAGYL 500 MG TAB 121255 METRONIDAZOLE Inactive DICLOFENAC POTASSIUM TABS Take 1 tablet twice a day (pt. is not sure of the dose.) DICLOFENAC POTASSIUM TABS DICLOFENAC POTASSIUM TABS Inactive ZITHROMAX Z-EARNEST 250 MG TABS 2 today and then 1 daily for 4 days ZITHROMAX Z-EARNEST 250 MG TABS 6782656 AZITHROMYCIN Inactive PREDNISONE 20 MG TABS 2 daily for 5 days then 1 daily for 5 days PREDNISONE 20 MG TABS 408738 PREDNISONE Inactive PROAIR HFA 108 (90 BASE) MCG/ACT AERS 2 puffs four times a day as needed 2015 PROAIR HFA 108 (90 BASE) MCG/ACT AERS ALBUTEROL SULFATE Inactive HYDROCODONE-ACETAMINOPHEN 5-325 MG TABS 1 to 2 four times a day as needed for pain use until can be seen by specialist HYDROCODONE- ACETAMINOPHEN 5-325 MG TABS 485665 HYDROCODONE-ACETAMINOPHEN Inactive TESSALON PERLES 100 MG CAP 1 to 2 tablets by mouth 3 times daily as needed for cough TESSALON PERLES 100 MG CAP 057536 BENZONATATE Inactive CHANTIX STARTING MONTH EARNEST 0.5 [...] Pain 2015 DICLOFENAC SODIUM 50 MG TBEC 434443 DICLOFENAC SODIUM Inactive TOPAMAX 50 MG ORAL TABS 1 tab twice daily TOPAMAX 50 MG ORAL TABS 431756 TOPIRAMATE Inactive VIIBRYD 10 MG ORAL TABS Take 1 tablet once a day VIIBRYD 10 MG ORAL TABS VILAZODONE HCL Inactive LEVOFLOXACIN 500 MG ORAL TABS po daily LEVOFLOXACIN 500 MG ORAL TABS 960940 LEVOFLOXACIN Inactive METHYLPREDNISOLONE 4 MG ORAL TABS po daily METHYLPREDNISOLONE 4 MG ORAL TABS 438501 METHYLPREDNISOLONE Inactive OXYCODONE HCL ER 10 MG ORAL T12A 1/2 tab by mouth every 4 hours prn OXYCODONE HCL ER 10 MG ORAL T12A OXYCODONE HCL Inactive FLAGYL 500 MG TAB 1 tablet by mouth bid FLAGYL 500 MG TAB 179564 METRONIDAZOLE Inactive MONISTAT 7 COMBO PACK WOODROW 100 & 2 MG-% (9GM) VAG KIT 1 applicatorful per vagina q pm x 7 MONISTAT 7 COMBO PACK WOODROW 100 & 2 MG-% (9GM) VAG KIT MICONAZOLE NITRATE Inactive BACTRIM DS 800-160 MG TABS 1 twice a day BACTRIM DS 800-160 MG TABS 618783 SULFAMETHOXAZOLE-TRIMETHOPRIM Inactive TRAMADOL HCL 50 MG TABS 1/2-1 tab TID PRN TRAMADOL HCL 50 MG TABS 069155 TRAMADOL HCL Inactive ABILIFY MAINTENA 400 MG IM SUSR 400mg injection every 26 days ABILIFY MAINTENA 400 MG IM SUSR ARIPIPRAZOLE Inactive KLONOPIN 1 MG ORAL TABS 1 tab po TID KLONOPIN 1 MG ORAL TABS 093268 CLONAZEPAM Inactive ADVAIR DISKUS 250-50 MCG/DOSE INH AEPB 1 puff twice a day for asthma ADVAIR DISKUS 250-50 MCG/DOSE INH AEPB FLUTICASONE- SALMETEROL Inactive BENADRYL 25 MG CAP 4 po at bedtime for insomnia BENADRYL 25 MG CAP DIPHENHYDRAMINE HCL Inactive PREDNISONE 20 MG TABS 2 daily for 5 days then 1 daily for 5 days PREDNISONE 20 MG TABS 233769 PREDNISONE Inactive HYDROCODONE-ACETAMINOPHEN 5-325 MG ORAL TABS 1 tab two times a day HYDROCODONE-ACETAMINOPHEN 5-325 MG ORAL TABS 495105 HYDROCODONE-ACETAMINOPHEN Inactive CEFDINIR 300 MG CAPS by mouth twice a day CEFDINIR 300 MG CAPS 781809 CEFDINIR Inactive PREDNISONE 20 MG TAB 2 tabs daily for 3 days, 1 tab daily for 3 days, 1/2 tab daily for 2 days PREDNISONE 20 MG TAB 201987 PREDNISONE Inactive BACTRIM DS 800-160 MG TABS 1 po BID x 7 days BACTRIM DS 800-160 MG TABS 19820521 SULFAMETHOXAZOLE-TRIMETHOPRIM Inactive DIFLUCAN 150 MG TABS 1 pill every other day x 2 doses DIFLUCAN 150 MG TABS 147819 FLUCONAZOLE Inactive BACTRIM DS 800-160 MG TABS 1 pill by mouth twice daily BACTRIM DS 800-160 MG TABS 897583 SULFAMETHOXAZOLE-TRIMETHOPRIM Inactive KEFLEX 500 MG CAP 1 po TID x 10 days KEFLEX 500 MG CAP 233978 CEPHALEXIN Inactive Advance Directives Directive Description Start [...] 369 10^3/MM^3 10*3/mm3 142-424 Lab Report: Chlamydia/GC [id number] - Lab chlamydia DNA probe NOT DETECTED NOT DETECTED Lab Report: Chlamydia/GC APTIMA/[id number] - Microbiology Neisseria gonorrhoeae DNA probe NOT DETECTED NOT DETECTED Lab Report: Comp. Metabolic Panel - Chemistry sodium, serum 142 mmol/L 679-252 3725/06/08 carbon dioxide, venous blood 27.6 mmol/L 21.0-32.0 potassium, serum 4.0 mmol/L 3.5-5.2 chloride, serum 105 mmol/L 98-107 blood glucose 95 mg/dL 65-110 urea nitrogen, blood 8 mg/dL 7-18 creatinine, serum 0.75 mg/dL 0.55-1.30 alanine aminotransferase (SGPT), serum 49 U/L -78 aspartate aminotransferase (SGOT), serum 28 U/L 15-37 calcium, serum 9.4 mg/dL 8.5-10.1 bilirubin, serum, total 0.30 mg/dL 0.00-1.00 sodium, serum 140 mmol/L 204-706 2487/08/08 carbon dioxide, venous blood 33.7 mmol/L 21.0-32.0 [...] mg/dL Encounters Code Encounter Date Provider Facility CPT-47070 Level 3 Est. Patient 11:47:37 VIDEOTAPE OPERATOR Ahmet Carbajal MD [facility] CPT-84229 Level 3 Est. Patient 10:40:11 VIDEOTAPE OPERATOR Ahmet Carbajal MD [facility] CPT-09997 Level 3 Est. Patient 15:07:06 VIDEOTAPE OPERATOR Neeraj Collins MD [facility] CPT-27190 Level 4 Est. Patient 14:45:00 VIDEOTAPE OPERATOR Ahmet Carbajal MD [facility] CPT-34429 Level 3 Est. Patient 13:59:59 CDT Luigi Martínez [facility] CPT-37893 Level 3 Est. Patient 18:18:53 CDT Neeraj Collins MD [facility] CPT-04525 Level 3 Est. Patient 15:50:44 CDT Vishal Hui MD [facility] CPT-26805 Level 3 Est. Patient 11:36:17 CDT Ahmet Carbajal MD [facility] CPT-87875 Level 3 Est. Patient 13:29:16 CDT Vishal Hui MD [facility] CPT-81445 Level 3 Est. Patient 14:27:52 CDT Neeraj Collins MD [facility] CPT-61145 Level 3 Est. Patient 08:56:03 CDT Luigi Martínez [facility] CPT-24317 Level 4 Est. Patient 12:11:48 CDT Fabiola Johnson [facility] CPT-94598 Level 3 New Patient 16:53:37 CDT Albert Caldera MD [facility] CPT-21897 Level 3 Est. Patient 11:25:49 CDT Renzo Thornton DO [facility] CPT-16171 Level 3 Est. Patient 15:22:01 CDT Ahmet Carbajal MD [facility] CPT-99574 Level 4 Est. Patient 09:00:51 VIDEOTAPE OPERATOR Vishal Hui MD [facility] CPT-68260 Level 3 Est. Patient 11:37:33 VIDEOTAPE OPERATOR Vishal Hui MD [facility] CPT-34419 Level 3 Est. Patient 08:41:09 VIDEOTAPE OPERATOR Vishal Hui MD [facility] CPT-97583 Level 4 Est. Patient 10:19:35 VIDEOTAPE OPERATOR Vishal Hui MD [facility] CPT-59291 Level 3 Est. Patient 13:35:45 CDT Vishal Hui MD [facility] CPT-25565 Level 4 Est. Patient 10:08:37 CDT Vishal Hui MD [facility] CPT-80151 Level 3 Est. Patient 11:22:10 CDT Vishal Hui MD [facility] CPT-34686 Level 3 Est. Patient 11:03:32 CDT Sahara Rodriguez MD [facility]-97390 Level 3 Est. Patient 09:41:35 CDT Vishal Hui MD [facility] CPT-39915 Level 3 Est. Patient 12:00:41 CDT Neeraj Collins MD [facility] CPT-66754 Level 3 Est. Patient 09:16:24 CDT Vishal Hui MD [facility] CPT-83876 Level 4 Est. Patient 13:59:09 CDT Neeraj Collins MD [facility] CPT-47405 Level 3 Est. Patient 15:19:43 CDT Renzo Thornton DO [facility] CPT-64258 Level 3 Est. Patient 18:10:26 CDT Sahara Rodriguez MD [facility]-27834 Level 3 Est. Patient 14:49:50 CDT Vishal Hui MD [facility] CPT-19695 Level 4 Est. Patient 18:41:46 CDT Neeraj Collins MD [facility]-01549 Level 4 Est. Patient 09:18:38 VIDEOTAPE OPERATOR Vishal Hui MD [facility] CPT-11439 Level 3 Est. Patient 14:43:55 VIDEOTAPE OPERATOR Vishal Hui MD [facility] CPT-99498 Level 3 Est. Patient 15:26:33 VIDEOTAPE OPERATOR Sahara Rodriguez MD [facility] CPT-19385 Level 3 Est. Patient 10:32:14 VIDEOTAPE OPERATOR Vishal Hui MD [facility] CPT-77608 Level 3 Est. Patient 15:12:52 VIDEOTAPE OPERATOR Vishal Hui MD [facility] CPT-92277 Level 4 Est. Patient 09:19:27 CDT Vishal Hui MD [facility] CPT-25203 Level 3 Est. Patient 15:53:00 CDT Renzo Thornton [facility] CPT-66671 Level 3 Est. Patient 15:50:30 CDT Renzo Thornton [facility] CPT-79797 Level 3 Est. Patient 16:55:24 CDT Vishal Hui MD [facility] Procedures Code Procedure Name Date Entry Date Standard Description CPT-G0439 [facility] Annual Wellness Exam 09:30:58 VIDEOTAPE OPERATOR CPT-22998 TSH - LAB USE ONLY 08:50:26 VIDEOTAPE OPERATOR CPT-01438 CBC - LAB USE ONLY 08:50:26 VIDEOTAPE OPERATOR CPT-20475 Venipuncture Draw Fee 08:50:26 VIDEOTAPE OPERATOR CPT-11479 Abx/Therapy Injection 17:34:30 VIDEOTAPE OPERATOR CPT-42265 Nexplanon Removal with Reinsertion 14:09:32 CDT CPT-J7307 Nexplanon (Implant) 14:09:32 CDT CPT-OV Office Visit 14:09:32 CDT CPT-35836 UA w micro - LAB USE ONLY 16:21:13 CDT CPT-02684 Wet Mount - LAB USE ONLY 16:21:13 CDT CPT-23447 First Vx - Ix admin for Medicare patients 14:37:47 CDT CPT-84694 Fluzone Preservative Free Intramuscular Suspension 14:37 :47 CDT CPT-11232 Abx/Therapy Injection 13:54:22 CDT CPT-97886 Abx/Therapy Injection 08:47:09 CDT CPT-09421 Abx/Therapy Injection 13:29:56 CDT CPT-37718 Abx/Therapy Injection 08:36:16 CDT CPT-54879 Wet Mount - LAB USE ONLY 17:44:58 CDT CPT-32163 UA w micro - LAB USE ONLY 17:44:58 CDT CPT-83754 CMP - LAB USE ONLY 17:44:58 CDT CPT-30386 Venipuncture Draw Fee 17:44:58 CDT CPT-25240 Cervical Min 4V - XRAY USE ONLY 09:01:40 CDT CPT-93650 Chest 2V Frontal and Lat - XRAY USE ONLY 11:06:31 CDT CPT-04558 EKG Trac and Interp - XRAY USE ONLY 11:31:43 CDT 08/26 CPT-J3420 Vitamin B12 1000mcg (Cyanocobalamin) 08:10:26 VIDEOTAPE OPERATOR 04/12 CPT-83135 Abx/Therapy Injection 08:10:26 VIDEOTAPE OPERATOR CPT-G0438 Initial Annual Wellness Exam 19:01:01 VIDEOTAPE OPERATOR CPT-J3420 Vitamin B12 1000mcg (Cyanocobalamin) 16:57:46 CDT 08/14 CPT-53516 Recombivax HB Injection Suspension 5 MCG/0.5ML 08:37:50 VIDEOTAPE OPERATOR CPT-09484 Immunization Single Admin 08:37:50 VIDEOTAPE OPERATOR CPT-J3420 Vitamin B12 1000mcg (Cyanocobalamin) 08:32:16 VIDEOTAPE OPERATOR 03/11 CPT-91694 Abx/Therapy Injection 08:32:16 VIDEOTAPE OPERATOR CPT-22724 Chest 2V Frontal and Lat 11:46:38 VIDEOTAPE OPERATOR CPT-29446 Venipuncture Draw Fee 09:12:45 VIDEOTAPE OPERATOR CPT-J3420 Vitamin B12 1000mcg (Cyanocobalamin) 08:50:15 VIDEOTAPE OPERATOR 02/08 CPT-97782 Abx/Therapy Injection 08:50:15 VIDEOTAPE OPERATOR CPT-Cryo Cryotherapy 10:19:35 VIDEOTAPE OPERATOR CPT-000 Give Appropriate Flu Vaccine 09:22:16 CDT CPT-J3420 Vitamin B12 1000mcg (Cyanocobalamin) 19:08:57 CDT 01/11 CPT-67690 Abx/Therapy Injection 19:08:57 CDT CPT-J3420 Vitamin B12 1000mcg (Cyanocobalamin) 08:19:08 CDT 12/11 CPT-33269 Abx/Therapy Injection 08:19:08 CDT CPT-J3420 Vitamin B12 1000mcg (Cyanocobalamin) 14:48:00 CDT 11/09 CPT-53876 Abx/Therapy Injection 14:47:59 CDT CPT-J3420 Vitamin B12 1000mcg (Cyanocobalamin) 08:34:04 CDT 10/09 CPT-84164 Abx/Therapy Injection 08:34:04 CDT CPT-J3420 Vitamin B12 1000mcg (Cyanocobalamin) 09:18:52 CDT 09/11 CPT-92981 Abx/Therapy Injection 09:18:52 CDT CPT-J3420 Vitamin B12 1000mcg (Cyanocobalamin) 08:35:44 CDT 09/04 CPT-78155 Abx/Therapy Injection 08:35:44 CDT CPT-83646 Immunization Single Admin 11:07:16 CDT CPT-94722 Hepatitis B adult IM 11:07:16 CDT CPT-J3420 Vitamin B12 1000mcg (Cyanocobalamin) 11:00:49 CDT 08/28 CPT-J1040 Depo Medrol 80 mg (Methyl Prednisolone Acetate) 11:00: 49 CDT CPT-29113 Abx/Therapy Injection 11:00:49 CDT CPT-J1040 Depo Medrol 80 mg (Methyl Prednisolone Acetate) 09:16: 23 CDT CPT-J3420 Vitamin B12 1000mcg (Cyanocobalamin) 08:27:05 CDT 08/20 CPT-20373 Abx/Therapy Injection 08:27:05 CDT CPT-95471 Recombivax HB Injection Suspension 5 MCG/0.5ML 10:00:41 CDT CPT-69664 Administration single or combination vaccine inc oral 10 :00:41 CDT CPT-87250 Sono transvag pelvis non OB uterus ovaries cervix 16:36: 57 CDT CPT-60226 LS spine comp w obliq 09:50:55 VIDEOTAPE OPERATOR CPT-74056 Abd compl w upright 09:50:55 VIDEOTAPE OPERATOR CPT-J1100 Decadron 4mg (Dexamethasone) 15:51:24 VIDEOTAPE OPERATOR CPT-J1030 Depo Medrol 40 mg (Methyl Prednisolone Acetate) 15:51: 24 VIDEOTAPE OPERATOR CPT-93196 Abx/Therapy Injection 15:51:24 VIDEOTAPE OPERATOR CPT-J1100 Decadron 4mg (Dexamethasone) 15:26:33 VIDEOTAPE OPERATOR CPT-J1030 Depo Medrol 40 mg (Methyl Prednisolone Acetate) 15:26: 33 VIDEOTAPE OPERATOR CPT-14020 Sono retroperitoneal complete kidneys and bladder 17:15: 30 CDT CPT-53669 Abd compl w upright 16:09:25 CDT CPT-J1100 Decadron 8mg (Dexamethasone) 17:07:57 CDT CPT-61932 Abx/Therapy Injection 17:07:57 CDT CPT-J1100 Decadron 8mg (Dexamethasone) 16:55:24 CDT CPT-65187 Chest 2V Frontal and Lat 16:32:44 CDT
--- OUTSIDE RECORDS SUMMARY | 2016-11-04 20:35 | XMS REPORT | Clinical Summary ---
Author Author Admin, QIE Organization [employer] Address Unknown Phone Unavailable Allergies, Adverse Reactions, [...] specified Headache, atypical 784.0 Active Luigi Martínez PIT OPERATOR Headache Elevated blood glucose 790.29 Active Demetrius [...] tab every 6 hours prn SUMATRIPTAN SUCCINATE 19578984001 Active Jillina Frazell PIT OPERATOR Active AMBIEN 5 MG ORAL TABS 1 tab at bedtime ZOLPIDEM TARTRATE 06349395929 Active Jillina Frazell PIT OPERATOR Active PROZAC 20 MG ORAL CAPS 1 tab daily FLUOXETINE HCL 74888995465 Active Jillina Frazell PIT OPERATOR Active ABILIFY 15 MG ORAL TABS 1 tab daily ARIPIPRAZOLE 35001612675 Active Jillina Frazell PIT OPERATOR Active MINIPRESS 2 MG CAPS 4 cap po at night PRAZOSIN HCL 38879422743 Active Jillina Frazell PIT OPERATOR Active TOPAMAX 50 MG ORAL TABS 1 tab twice daily TOPIRAMATE 07357842876 Active Jillina Frazell PIT OPERATOR Active SAPHRIS 5 MG SUBL 1 po bid ASENAPINE MALEATE 02823983008 No Longer Active Jillina Frazell PIT OPERATOR Active LATUDA 80 MG TABS Take one by mouth daily LURASIDONE HCL 96870641390 No Longer Active Jillina Frazell PIT OPERATOR Active AMLODIPINE BESYLATE 5 MG TABS 1 tablet by mouth daily AMLODIPINE BESYLATE 54757526913 No Longer Active Pacollina Johnl PIT OPERATOR Active AMITRIPTYLINE HCL 100 MG TAB one at hs AMITRIPTYLINE HCL 48179268429 No Longer Active Vishal Hui MD Active TRAZODONE HCL 100 MG TAB take 1 at bedtime TRAZODONE HCL 63448764583 No Longer Active Vishal Hui MD Active VYVANSE 40 MG CAPS 1 daily, LISDEXAMFETAMINE DIMESYLATE 03458654156 No Longer Active Vishal Hui MD Active IBUPROFEN 600 MG TAB 1 po TID PRN IBUPROFEN 68894664901 No Longer Active Vishal Hui MD Active MIRALAX PACK 1 po qd PRN Constipation POLYETHYLENE GLYCOL 3350 40926414193 Active Vishal Hui MD Active PROZAC 20 MG CAP Take one by mouth daily FLUOXETINE HCL 49388106493 No Longer Active Vishal Hui MD Active ZOFRAN 4 MG TABS 1 po q6hr PRN Nausea ONDANSETRON HCL Active Vishal Hui MD Active BACTRIM DS 800-160 MG TABS 1 pill by mouth twice daily SULFAMETHOXAZOLE-TRIMETHOPRIM 15643428323 No Longer Active Sahara Rodriguez MD PhD Active DIFLUCAN 150 MG TAB 1 tablet by mouth daily FLUCONAZOLE 96307228533 No Longer Active Vishal Hui MD Active TIZANIDINE HCL 4 MG TABS 1 po q6hr PRN Muscle Spasm/Back Pain TIZANIDINE HCL 80930666611 Active Vishal Hui MD Active CLINDAMYCIN HCL 150 MG CAPS 1 four times a day CLINDAMYCIN HCL 91289735255 No Longer Active Neeraj Collins MD Active KEFLEX 500 MG ORAL CAPS 1 cap QID by mouth CEPHALEXIN 12344430119 No Longer Active Neeraj Collins MD Active DIFLUCAN 150 MG TABS 1 pill every other day x 2 doses FLUCONAZOLE 22961589387 No Longer Active Sahara Rodriguez MD PhD Active MELATONIN 3 MG CAPS 2 po q hs MELATONIN 59008679979 No Longer Active Sahara Rodriguez MD PhD Active MULTIVITAMINS CAPS Take one by mouth daily MULTIPLE VITAMIN 53650752748 No Longer Active Sahara Rodriguez MD PhD Active BACTRIM DS 800-160 MG TAB 1 tab by mouth twice daily TRIMETHOPRIM-SULFAMETHOXAZOLE 91212114825 No Longer Active Sahara Rodriguez MD PhD Active [employer] PROBIOTIC ORAL CHEW 2 daily po PROBIOTIC PRODUCT 21247430234 No Longer Active Sahara Rodriguez MD PhD Active BACTRIM DS 800-160 MG TABS 1 po BID x 7 days SULFAMETHOXAZOLE-TRIMETHOPRIM 40210458535 No Longer Active Vishal Hui MD Active CHANTIX STARTING MONTH EARNEST 0.5 MG X 11 & 1 MG X 42 TABS 0.5mg daily for 3 days , then 0.5mg BID for 4 days, then 1mg BID VARENICLINE TARTRATE 62534414175 No Longer Active TAMARA Gray Active METOPROLOL TARTRATE 50 MG TAB 1 po bid METOPROLOL TARTRATE 84657856638 Active Vishal Hui MD Active VERAPAMIL HCL CR 120 MG TAB CR 1 po bid VERAPAMIL HCL 08324326131 No Longer Active Vishal Hui MD Active METOPROLOL SUCCINATE 50 MG TB24 1 tablet by mouth daily METOPROLOL SUCCINATE 54395233921 No Longer Active Vishal Hui MD Active TRAMADOL HCL 50 MG TABS 1-2 po TID PRN Pain TRAMADOL HCL 54607325984 Active Vishal Hui MD Active SAPHRIS 10 MG SUBL 1 tab po bid ASENAPINE MALEATE 67894762761 No Longer Active Vishal Hui MD Active LISINOPRIL 20 MG TABS 1 tab po qd LISINOPRIL 02993531463 No Longer Active Vishal Hui MD Active BENADRYL 25 MG CAP 2 po tid prn anxiety DIPHENHYDRAMINE HCL 01534269085 Active Vishal Hui MD Active LATUDA 20 MG TABS Take one by mouth daily LURASIDONE HCL 09005826046 No Longer Active Vishal Hui MD Active TRAZODONE HCL 50 MG TABS 1/2 tab po qd prn for anxiety TRAZODONE HCL 05374395952 No Longer Active Vishal Hui MD Active PIROXICAM 20 MG CAPS 1 cap po qd PRN Pain PIROXICAM 94894346636 Active Vishal Hui MD Active OMEPRAZOLE 20 MG TBEC 1 po q a.m. 30min prior to first food intake OMEPRAZOLE 39504674227 Active Vishal Hui MD Active RANITIDINE HCL 150 MG CAPS 1 twice a day RANITIDINE HCL 62063776125 Active Vishal Hui MD Active LINZESS 290 MCG CAPS Take one by mouth daily LINACLOTIDE 00729331158 No Longer Active Vishal Hui MD Active SAPHRIS 5 MG SUBL 1 tab po qd ASENAPINE MALEATE 97983585206 No Longer Active Vishal Hui MD Active ZALEPLON 10 MG CAPS 1 cap po every other night ZALEPLON 23655574249 No Longer Active Vishal Hui MD Active LYRICA 50 MG CAPS 1 tab po TID PREGABALIN 44637974899 No Longer Active Vishal Hui MD Active LORATADINE 10 MG TABS 1 tab po qd LORATADINE 06974216258 No Longer Active Vishal Hui MD Active VERAPAMIL HCL ER 180 MG CR-TABS 1 tab po bid VERAPAMIL HCL 30809733494 No Longer Active Vishal Hui MD Active MIRALAX POWD 1 capfull once daily POLYETHYLENE GLYCOL 3350 03649249085 No Longer Active Vishal Hui MD Active PREDNISONE 20 MG TABS 1 tab po qd PREDNISONE 89067468574 No Longer Active Renzo Thornton DO Active LEVOFLOXACIN 500 MG TABS 1 tab po qd LEVOFLOXACIN 10817737434 No Longer Active Renzo Thornton DO Active BUSPIRONE HCL 15 MG TABS 1 tab po TID BUSPIRONE HCL 97583355318 No Longer Active Renzo Thornton DO Active BENZTROPINE MESYLATE 1 MG TABS 1 tab po qd BENZTROPINE MESYLATE 50156425522 No Longer Active Renzo Thornton DO Active ATENOLOL 25 MG TABS 1 tab po qd ATENOLOL 41861761132 No Longer Active Renzo Thornton DO Active ESCITALOPRAM OXALATE 20 MG TABS 1 tab po qd ESCITALOPRAM OXALATE 49144412205 No Longer Active Renzo Thornton DO Active ADVAIR DISKUS 250-50 MCG/DOSE AEPB 1 puff BID FLUTICASONE-SALMETEROL 94370650891 No Longer Active Renzo Thornton DO Active PREDNISONE 20 MG TAB 2 tabs daily for 3 days, 1 tab daily for 3 days, 1/2 tab daily for 2 days PREDNISONE 34480946687 No Longer Active Vishal Hui MD Active CEFDINIR 300 MG CAPS by mouth twice a day CEFDINIR 00194174229 No Longer Active Vishal Hui MD Active LANSOPRAZOLE 30 MG CPDR 1 cap po qd LANSOPRAZOLE 45450602060 No Longer Active Vishal Hui MD Active BACLOFEN 20 MG TABS 1 tab po tid BACLOFEN 78291906860 No Longer Active Vishal Hui MD Active ADVAIR DISKUS 250-50 MCG/DOSE AEPB 1 puff BID ADVAIR DISKUS 250-50 MCG/DOSE AEPB FLUTICASONE-SALMETEROL Inactive ESCITALOPRAM OXALATE 20 MG TABS 1 tab po qd ESCITALOPRAM OXALATE 20 MG TABS 766504 ESCITALOPRAM OXALATE Inactive ATENOLOL 25 MG TABS 1 tab po qd ATENOLOL 25 MG TABS 875983 ATENOLOL Inactive BENZTROPINE MESYLATE 1 MG TABS 1 tab po qd BENZTROPINE MESYLATE 1 MG TABS 391504 BENZTROPINE MESYLATE Inactive BUSPIRONE HCL 15 MG TABS 1 tab po TID BUSPIRONE HCL 15 MG TABS 113859 BUSPIRONE HCL Inactive LEVOFLOXACIN 500 MG TABS 1 tab po qd LEVOFLOXACIN 500 MG TABS 947187 LEVOFLOXACIN Inactive PREDNISONE 20 MG TABS 1 tab po qd PREDNISONE 20 MG TABS 874632 PREDNISONE Inactive MIRALAX POWD 1 capfull once daily MIRALAX POWD 966319 POLYETHYLENE GLYCOL 3350 Inactive VERAPAMIL HCL ER 180 MG CR-TABS 1 tab po bid VERAPAMIL HCL ER 180 MG CR-TABS VERAPAMIL HCL Inactive LORATADINE 10 MG TABS 1 tab po qd LORATADINE 10 MG TABS 292183 LORATADINE Inactive LYRICA 50 MG CAPS 1 tab po TID LYRICA 50 MG CAPS PREGABALIN Inactive ZALEPLON 10 MG CAPS 1 cap po every other night ZALEPLON 10 MG CAPS 774996 ZALEPLON Inactive SAPHRIS 5 MG SUBL 1 tab po qd SAPHRIS 5 MG SUBL ASENAPINE MALEATE Inactive TRAZODONE HCL 50 MG TABS 1/2 tab po qd prn for anxiety TRAZODONE HCL 50 MG TABS 265736 TRAZODONE HCL Inactive LATUDA 20 MG TABS Take one by mouth daily LATUDA 20 MG TABS LURASIDONE HCL Inactive LISINOPRIL 20 MG TABS 1 tab po qd LISINOPRIL 20 MG TABS 662963 LISINOPRIL Inactive SAPHRIS 10 MG SUBL 1 [...] twice daily BACTRIM DS 800-160 MG TAB 340494 TRIMETHOPRIM-SULFAMETHOXAZOLE Inactive MULTIVITAMINS CAPS Take one by mouth daily MULTIVITAMINS CAPS MULTIPLE VITAMIN Inactive MELATONIN 3 MG CAPS 2 po q hs MELATONIN 3 MG CAPS 19950526 MELATONIN Inactive KEFLEX 500 MG ORAL CAPS 1 cap QID by mouth KEFLEX 500 MG ORAL CAPS 713879 CEPHALEXIN Inactive CLINDAMYCIN HCL 150 MG CAPS 1 four times a day CLINDAMYCIN HCL 150 MG CAPS 571595 CLINDAMYCIN HCL Inactive DIFLUCAN 150 MG TAB 1 tablet by mouth daily DIFLUCAN 150 MG TAB 700457 FLUCONAZOLE Inactive PROZAC 20 MG CAP Take one by mouth daily PROZAC 20 MG CAP 159793 FLUOXETINE HCL Inactive IBUPROFEN 600 MG TAB 1 po TID PRN IBUPROFEN 600 MG TAB 718629 IBUPROFEN Inactive VYVANSE 40 MG CAPS 1 daily, VYVANSE 40 MG CAPS LISDEXAMFETAMINE DIMESYLATE Inactive TRAZODONE HCL 100 MG TAB take 1 at bedtime TRAZODONE HCL 100 MG TAB 445388 TRAZODONE HCL Inactive AMITRIPTYLINE HCL 100 MG TAB one at hs AMITRIPTYLINE HCL 100 MG TAB 872772 AMITRIPTYLINE HCL Inactive AMLODIPINE BESYLATE 5 MG TABS 1 tablet by mouth daily AMLODIPINE BESYLATE 5 MG TABS 990249 AMLODIPINE BESYLATE Inactive LATUDA 80 MG TABS Take one by mouth daily LATUDA 80 MG TABS LURASIDONE HCL Inactive SAPHRIS 5 MG SUBL 1 po bid SAPHRIS 5 MG SUBL ASENAPINE MALEATE Inactive CEFDINIR 300 MG CAPS by mouth twice a day CEFDINIR 300 MG CAPS 042722 CEFDINIR Inactive PREDNISONE 20 MG TAB 2 tabs daily for 3 days, 1 tab daily for 3 days, 1/2 tab daily for 2 days PREDNISONE 20 MG TAB 356574 PREDNISONE Inactive BACTRIM DS 800-160 MG TABS 1 po BID x 7 days BACTRIM DS 800-160 MG TABS 743572 SULFAMETHOXAZOLE-TRIMETHOPRIM Inactive DIFLUCAN 150 MG TABS 1 pill every other day x 2 doses DIFLUCAN 150 MG TABS 621650 FLUCONAZOLE Inactive BACTRIM DS 800-160 MG TABS 1 pill by mouth twice daily BACTRIM DS 800-160 MG TABS 879856 SULFAMETHOXAZOLE-TRIMETHOPRIM Inactive Vital Signs Date Name Value [...] Panel - Chemistry sodium, serum 139 mmol/L 841-012 4081/12/03 carbon dioxide, venous blood 28.5 mmol/L 21.0-32.0 [...] 5.5 % 4.3-6.0 cholesterol, serum 159 mg/dL 232-754 1195/12/03 triglyceride, serum, fasting 118 mg/dL 30-200 HDL [...] ... - Chemistry sodium, serum 140 mmol/L 051-431 3414/05/28 potassium, serum 4.2 mmol/L 3.5-5.2 chloride, serum [...] Panel - Chemistry sodium, serum 141 mmol/L 933-011 5294 potassium, serum 4.3 mmol/L 3.5-5.2 chloride, serum 106 mmol/L 98-107 carbon dioxide, venous blood 25.7 mmol/L 21.0-32.0 blood glucose 119 mg/dL 65-110 urea nitrogen, blood 22 mg/dL 7-18 creatinine, serum 0.90 mg/dL 0.60-1.30 alanine aminotransferase (SGPT), serum 28 U/L 12-78 aspartate aminotransferase (SGOT), serum 13 U/L 15-37 calcium, serum 8.5 mg/dL 8.5-10.1 bilirubin, serum, total 0.20 mg/dL 0.00-1.00 sodium, serum 139 mmol/L 907-473 1473/12/22 carbon dioxide, venous blood 26.8 mmol/L 21.0-32.0 [...] Rate - Chemistry sodium, serum 139 mmol/L 748-917 9548/12/11 carbon dioxide, venous blood 25.4 mmol/L 21.0-32.0 [...] Panel - Chemistry sodium, serum 139 mmol/L 060-526 3543/12/31 potassium, serum 4.8 mmol/L 3.5-5.2 chloride, serum 106 mmol/L 98-107 carbon dioxide, venous blood 24.3 mmol/L 21.0-32.0 blood glucose 90 mg/dL 65-110 urea nitrogen, blood 16 mg/dL 7-18 creatinine, serum 1.00 mg/dL 0.60-1.30 alanine aminotransferase (SGPT), serum 41 U/L 12-78 aspartate aminotransferase (SGOT), serum 17 U/L 15-37 calcium, serum 8.6 mg/dL 8.5-10.1 bilirubin, serum, total 0.30 mg/dL 0.00-1.00 cholesterol, serum 108 mg/dL 573-208 6039/12/31 triglyceride, serum, fasting 120 mg/dL 30-200 HDL [...] 5.5 5.0-8.5 Lab Report: UADIP W/MICRO, AUTO, [facility] [place] - Chemistry RBC, urine, dipstick Negative Negative protein, total urine random Negative mg/dL Negative human chorionic gonadotropin, urine, qualitative (urine test) Negative Negative Lab Report: UADIP W/MICRO, AUTO, [facility] - Urinalysis glucose, urine, semiquantitative Negative Negative ketones, urine, by test strip Negative Negative bilirubin, urine Negative Negative urine color Yellow Colorless;Lightyellow;Straw;Yellow appearance, urine Clear Clear specific gravity, urine 1.025 1.000-1.030 pH, urine, semiquantitative 7.0 5.0-8.5 urobilinogen, urine, semiquantitative (dipstick) 0.2 Normal leukocyte esterase, urine, by dipstick Negative Negative nitrite, urine, semiquantitative Negative Negative Lab Report: Varicella-Zoater Inga IgG,IgM/37617, HEP Be Antibody/556, RUB ... - Serology rubella antibody, serum, IgG 2.88 Encounters Code Encounter Date Provider Facility CPT-75916 Level 3 Est. Patient 11:37:33 STONEMASON HELPER Vishal Hui MD [facility] CPT-22952 Level 3 Est. Patient 08:41:09 STONEMASON HELPER Vishal Hui MD [facility] CPT-21097 Level 4 Est. Patient 10:19:35 STONEMASON HELPER Vishal Hui MD [facility] CPT-31546 Level 3 Est. Patient 13:35:45 CDT Vishal Hui MD [facility] CPT-91730 Level 4 Est. Patient 10:08:37 CDT Vishal Hui MD [facility] CPT-01041 Level 3 Est. Patient 11:22:10 CDT Vishal Hui MD [facility] CPT-07274 Level 3 Est. Patient 11:03:32 CDT Sahara Rodriguez MD [facility] CPT-37850 Level 3 Est. Patient 09:41:35 CDT Vishal Hui MD [facility]-04432 Level 3 Est. Patient 12:00:41 CDT Neeraj Collins MD [facility] CPT-05918 Level 3 Est. Patient 09:16:24 CDT Vishal Hui MD [facility] CPT-97988 Level 4 Est. Patient 13:59:09 CDT Neeraj Collins MD [facility] CPT-27957 Level 3 Est. Patient 15:19:43 CDT Renzo Thornton DO [facility] CPT-60585 Level 3 Est. Patient 18:10:26 CDT Sahara Rodriguez MD [facility]-81353 Level 3 Est. Patient 14:49:50 CDT Vishal Hui MD [facility] CPT-33125 Level 4 Est. Patient 18:41:46 CDT Neeraj Collins MD [facility]-98179 Level 4 Est. Patient 09:18:38 STONEMASON HELPER Vishal Hui MD [facility] CPT-39519 Level 3 Est. Patient 14:43:55 STONEMASON HELPER Vishal Hui MD [facility] CPT-89762 Level 3 Est. Patient 15:26:33 STONEMASON HELPER Sahara Rodriguez MD PhD [facility] CPT-68197 Level 3 Est. Patient 10:32:14 STONEMASON HELPER Vishal Hui MD [facility] CPT-67335 Level 3 Est. Patient 15:12:52 STONEMASON HELPER Vishal Hui MD [facility] CPT-97385 Level 4 Est. Patient 09:19:27 CDT Vishal Hui MD [facility] CPT-56068 Level 3 Est. Patient 15:53:00 CDT Renzo Thornton [facility] CPT-43372 Level 3 Est. Patient 15:50:30 CDT Renzo Thornton [facility] CPT-06350 Level 3 Est. Patient 16:55:24 CDT Vishal Hui MD [facility] Procedures Code Procedure Name Date Entry Date Standard Description CPT-21724 Recombivax HB Injection Suspension 5 MCG/0.5ML 08:37:50 STONEMASON HELPER CPT-44679 Immunization Single Admin 08:37:50 STONEMASON HELPER CPT-J3420 Vitamin B12 1000mcg (Cyanocobalamin) 08:32:16 STONEMASON HELPER 03/11 CPT-17290 Abx/Therapy Injection 08:32:16 STONEMASON HELPER CPT-90389 Chest 2V Frontal and Lat 11:46:38 STONEMASON HELPER CPT-27236 Venipuncture Draw Fee 09:12:45 STONEMASON HELPER CPT-J3420 Vitamin B12 1000mcg (Cyanocobalamin) 08:50:15 STONEMASON HELPER 02/08 CPT-38315 Abx/Therapy Injection 08:50:15 STONEMASON HELPER CPT-Cryo Cryotherapy 10:19:35 STONEMASON HELPER CPT-000 Give Appropriate Flu Vaccine 09:22:16 CDT CPT-J3420 Vitamin B12 1000mcg (Cyanocobalamin) 19:08:57 CDT 01/11 CPT-27299 Abx/Therapy Injection 19:08:57 CDT CPT-J3420 Vitamin B12 1000mcg (Cyanocobalamin) 08:19:08 CDT 12/11 CPT-98027 Abx/Therapy Injection 08:19:08 CDT CPT-J3420 Vitamin B12 1000mcg (Cyanocobalamin) 14:48:00 CDT 11/09 CPT-00971 Abx/Therapy Injection 14:47:59 CDT CPT-J3420 Vitamin B12 1000mcg (Cyanocobalamin) 08:34:04 CDT 10/09 CPT-87731 Abx/Therapy Injection 08:34:04 CDT CPT-J3420 Vitamin B12 1000mcg (Cyanocobalamin) 09:18:52 CDT 09/11 CPT-22238 Abx/Therapy Injection 09:18:52 CDT CPT-J3420 Vitamin B12 1000mcg (Cyanocobalamin) 08:35:44 CDT 09/04 CPT-77763 Abx/Therapy Injection 08:35:44 CDT CPT-86737 Immunization Single Admin 11:07:16 CDT CPT-63199 Hepatitis B adult IM 11:07:16 CDT CPT-J3420 Vitamin B12 1000mcg (Cyanocobalamin) 11:00:49 CDT 08/28 CPT-J1040 Depo Medrol 80 mg (Methyl Prednisolone Acetate) 11:00: 49 CDT CPT-90564 Abx/Therapy Injection 11:00:49 CDT CPT-J1040 Depo Medrol 80 mg (Methyl Prednisolone Acetate) 09:16: 23 CDT CPT-J3420 Vitamin B12 1000mcg (Cyanocobalamin) 08:27:05 CDT 08/20 CPT-36236 Abx/Therapy Injection 08:27:05 CDT CPT-40041 Recombivax HB Injection Suspension 5 MCG/0.5ML 10:00:41 CDT CPT-25707 Administration single or combination vaccine inc oral 10 :00:41 CDT CPT-19794 Sono transvag pelvis non OB uterus ovaries cervix 16:36: 57 CDT CPT-77491 LS spine comp w obliq 09:50:55 STONEMASON HELPER CPT-74841 Abd compl w upright 09:50:55 STONEMASON HELPER CPT-J1100 Decadron 4mg (Dexamethasone) 15:51:24 STONEMASON HELPER CPT-J1030 Depo Medrol 40 mg (Methyl Prednisolone Acetate) 15:51: 24 STONEMASON HELPER CPT-59197 Abx/Therapy Injection 15:51:24 STONEMASON HELPER CPT-J1100 Decadron 4mg (Dexamethasone) 15:26:33 STONEMASON HELPER CPT-J1030 Depo Medrol 40 mg (Methyl Prednisolone Acetate) 15:26: 33 STONEMASON HELPER CPT-66486 Sono retroperitoneal complete kidneys and bladder 17:15: 30 CDT CPT-23771 Abd compl w upright 16:09:25 CDT CPT-J1100 Decadron 8mg (Dexamethasone) 17:07:57 CDT CPT-83537 Abx/Therapy Injection 17:07:57 CDT CPT-J1100 Decadron 8mg (Dexamethasone) 16:55:24 CDT CPT-82871 Chest 2V Frontal and Lat 16:32:44 CDT
--- OUTSIDE RECORDS SUMMARY | 2016-11-04 20:36 | XMS REPORT | Clinical Summary ---
Author Author Admin, E Organization [facility] Address Unknown Phone Unavailable Allergies, Adverse Reactions, Alerts Allergy Name Reaction Description Start Date Severity Status Provider FANAPT heart palpitations Critical Active Vishal uHi MD SEROQUEL Critical Active Vishal uHi MD AUGMENTIN Critical Active Vishal Hui MD [...] q6hr PRN Muscle Spasm/Back Pain TIZANIDINE HCL 49611778977 Active Vishal Hui MD Active CLINDAMYCIN HCL 150 MG CAPS 1 four times a day CLINDAMYCIN HCL 67149566032 No Longer Active Neeraj Collins MD Active KEFLEX 500 MG ORAL CAPS 1 cap QID by mouth CEPHALEXIN 83178260800 No Longer Active Neeraj Collins MD Active DIFLUCAN 150 MG TABS 1 pill every other day x 2 doses FLUCONAZOLE 10872172762 No Longer Active Sahara Rodriguez MD PhD Active MELATONIN 3 MG CAPS 2 po q hs MELATONIN 94595917220 No Longer Active Sahara Rodriguez MD PhD Active MULTIVITAMINS CAPS Take one by mouth daily MULTIPLE VITAMIN 39422862843 No Longer Active Sahara Rodriguez MD PhD Active BACTRIM DS 800-160 MG TAB 1 tab by mouth twice daily TRIMETHOPRIM-SULFAMETHOXAZOLE 92164899841 No Longer Active Sahara Rodriguez MD PhD Active [facility] PROBIOTIC ORAL CHEW 2 daily po PROBIOTIC PRODUCT 70812431354 No Longer Active Sahara Rodriguez MD PhD Active IBUPROFEN 600 MG TAB 1 po TID PRN IBUPROFEN 30884894548 Active Luigi Martínez [employer] Active BACTRIM DS 800-160 MG TABS 1 po BID x 7 days SULFAMETHOXAZOLE-TRIMETHOPRIM 29925643872 No Longer Active Vishal Hui MD Active CHANTIX STARTING MONTH EARNEST 0.5 MG X 11 & 1 MG X 42 TABS 0.5mg daily for 3 days , then 0.5mg BID for 4 days, then 1mg BID VARENICLINE TARTRATE 22049764515 No Longer Active TAMARA Gray Active METOPROLOL TARTRATE 50 MG TAB 1 po bid METOPROLOL TARTRATE 54317462721 Active Vishal Hui MD Active TRAZODONE HCL 100 MG TAB take 1 at bedtime TRAZODONE HCL 74178015788 Active Vishal Hui MD Active AMLODIPINE BESYLATE 5 MG TABS 1 tablet by mouth daily AMLODIPINE BESYLATE 84014765523 Active Vishal Hui MD Active VERAPAMIL HCL CR 120 MG TAB CR 1 po bid VERAPAMIL HCL 56357223544 No Longer Active Vishal Hui MD Active METOPROLOL SUCCINATE 50 MG TB24 1 tablet by mouth daily METOPROLOL SUCCINATE 77387048781 No Longer Active Vishal Hui MD Active TRAMADOL HCL 50 MG TABS 1-2 po TID PRN Pain TRAMADOL HCL 36040027788 Active Vishal Hui MD Active SAPHRIS 5 MG SUBL 1 po bid ASENAPINE MALEATE 12091465567 Active Vishal Hui MD Active SAPHRIS 10 MG SUBL 1 tab po bid ASENAPINE MALEATE 98477627168 No Longer Active Vishal Hui MD Active LISINOPRIL 20 MG TABS 1 tab po qd LISINOPRIL 25279258358 No Longer Active Vishal Hui MD Active BENADRYL 25 MG CAP 2 po tid prn anxiety DIPHENHYDRAMINE HCL 17487839713 Active Vishal Hui MD Active LATUDA 80 MG TABS Take one by mouth daily LURASIDONE HCL 49213713440 Active Vishal Hui MD Active LATUDA 20 MG TABS Take one by mouth daily LURASIDONE HCL 34503976862 No Longer Active Vishal Hui MD Active TRAZODONE HCL 50 MG TABS 1/2 tab po qd prn for anxiety TRAZODONE HCL 36106167327 No Longer Active Vishal Hui MD Active PIROXICAM 20 MG CAPS 1 cap po qd PRN Pain PIROXICAM 24878552695 Active Vishal Hui MD Active OMEPRAZOLE 20 MG TBEC 1 po q a.m. 30min prior to first food intake OMEPRAZOLE 93526520591 Active Vishal Hui MD Active RANITIDINE HCL 150 MG CAPS 1 twice a day RANITIDINE HCL 37277125111 Active Vishal Hui MD Active PROZAC 20 MG CAP Take one by mouth daily FLUOXETINE HCL 05343601631 Active Vishal Hui MD Active LINZESS 290 MCG CAPS Take one by mouth daily LINACLOTIDE 62547863179 Active Vishal Hui MD Active SAPHRIS 5 MG SUBL 1 tab po qd ASENAPINE MALEATE 06434277579 No Longer Active Vishal Hui MD Active ZALEPLON 10 MG CAPS 1 cap po every other night ZALEPLON 63753161159 No Longer Active Vishal Hui MD Active LYRICA 50 MG CAPS 1 tab po TID PREGABALIN 47425861700 No Longer Active Vishal Hui MD Active LORATADINE 10 MG TABS 1 tab po qd LORATADINE 61516471569 No Longer Active Vishal Hui MD Active VERAPAMIL HCL ER 180 MG CR-TABS 1 tab po bid VERAPAMIL HCL 45274723231 No Longer Active Vishal Hui MD Active MIRALAX POWD 1 capfull once daily POLYETHYLENE GLYCOL 3350 19568545514 No Longer Active Vishal Hui MD Active PREDNISONE 20 MG TABS 1 tab po qd PREDNISONE 30070226543 No Longer Active Renzo Thornton DO Active LEVOFLOXACIN 500 MG TABS 1 tab po qd LEVOFLOXACIN 04760422616 No Longer Active Renzo Thornton DO Active BUSPIRONE HCL 15 MG TABS 1 tab po TID BUSPIRONE HCL 37480357680 No Longer Active Renzo Thornton DO Active BENZTROPINE MESYLATE 1 MG TABS 1 tab po qd BENZTROPINE MESYLATE 21700111905 No Longer Active Renzo Thornton DO Active ATENOLOL 25 MG TABS 1 tab po qd ATENOLOL 26247312008 No Longer Active Renzo Thornton DO Active ESCITALOPRAM OXALATE 20 MG TABS 1 tab po qd ESCITALOPRAM OXALATE 53759532755 No Longer Active Renzo Thornton DO Active ADVAIR DISKUS 250-50 MCG/DOSE AEPB 1 puff BID FLUTICASONE-SALMETEROL 51441008585 No Longer Active Renzo Thornton DO Active PREDNISONE 20 MG TAB 2 tabs daily for 3 days, 1 tab daily for 3 days, 1/2 tab daily for 2 days PREDNISONE 08626926319 No Longer Active Vishal Hui MD Active CEFDINIR 300 MG CAPS by mouth twice a day CEFDINIR 39098797287 No Longer Active Vishal Hui MD Active LANSOPRAZOLE 30 MG CPDR 1 cap po qd LANSOPRAZOLE 72950458859 No Longer Active Vishal Hui MD Active TOPAMAX 25 MG TABS 1 tab po bid TOPIRAMATE 29925742610 Active Vishal Hui MD Active MINIPRESS 2 MG CAPS 1 cap po at night PRAZOSIN HCL 23184690546 Active Vishal Hui MD Active BACLOFEN 20 MG TABS 1 tab po tid BACLOFEN 11390298042 No Longer Active Vishal Hui MD Active ADVAIR DISKUS 250-50 MCG/DOSE AEPB 1 puff BID ADVAIR DISKUS 250-50 MCG/DOSE AEPB FLUTICASONE-SALMETEROL Inactive ESCITALOPRAM OXALATE 20 MG TABS 1 tab po qd ESCITALOPRAM OXALATE 20 MG TABS 215799 ESCITALOPRAM OXALATE Inactive ATENOLOL 25 MG TABS 1 tab po qd ATENOLOL 25 MG TABS 052782 ATENOLOL Inactive BENZTROPINE MESYLATE 1 MG TABS 1 tab po qd BENZTROPINE MESYLATE 1 MG TABS 904703 BENZTROPINE MESYLATE Inactive BUSPIRONE HCL 15 MG TABS 1 tab po TID BUSPIRONE HCL 15 MG TABS 281534 BUSPIRONE HCL Inactive LEVOFLOXACIN 500 MG TABS 1 tab po qd LEVOFLOXACIN 500 MG TABS 289609 LEVOFLOXACIN Inactive PREDNISONE 20 MG TABS 1 tab po qd PREDNISONE 20 MG TABS 986030 PREDNISONE Inactive MIRALAX POWD 1 capfull once daily MIRALAX POWD 138726 POLYETHYLENE GLYCOL 3350 Inactive VERAPAMIL HCL ER 180 MG CR-TABS 1 tab po bid VERAPAMIL HCL ER 180 MG CR-TABS VERAPAMIL HCL Inactive LORATADINE 10 MG TABS 1 tab po qd LORATADINE 10 MG TABS 848078 LORATADINE Inactive LYRICA 50 MG CAPS 1 tab po TID LYRICA 50 MG CAPS PREGABALIN Inactive ZALEPLON 10 MG CAPS 1 cap po every other night ZALEPLON 10 MG CAPS 593884 ZALEPLON Inactive SAPHRIS 5 MG SUBL 1 tab po qd SAPHRIS 5 MG SUBL ASENAPINE MALEATE Inactive TRAZODONE HCL 50 MG TABS 1/2 tab po qd prn for anxiety TRAZODONE HCL 50 MG TABS 274554 TRAZODONE HCL Inactive LATUDA 20 MG TABS Take one by mouth daily LATUDA 20 MG TABS LURASIDONE HCL Inactive LISINOPRIL 20 MG TABS 1 tab po qd LISINOPRIL 20 MG TABS 861208 LISINOPRIL Inactive SAPHRIS 10 MG SUBL 1 [...] po q hs MELATONIN 3 MG CAPS 491446 MELATONIN Inactive KEFLEX 500 MG ORAL CAPS 1 cap QID by mouth KEFLEX 500 MG ORAL CAPS 617100 CEPHALEXIN Inactive CLINDAMYCIN HCL 150 MG CAPS 1 four times a day CLINDAMYCIN HCL 150 MG CAPS 592019 CLINDAMYCIN HCL Inactive CEFDINIR 300 MG CAPS by mouth twice a day CEFDINIR 300 MG CAPS 896004 CEFDINIR Inactive PREDNISONE 20 MG TAB 2 tabs daily for 3 days, 1 tab daily for 3 days, 1/2 tab daily for 2 days PREDNISONE 20 MG TAB 226869 PREDNISONE Inactive BACTRIM DS 800-160 MG TABS 1 po BID x 7 days BACTRIM DS 800-160 MG TABS SULFAMETHOXAZOLE-TRIMETHOPRIM Inactive DIFLUCAN 150 MG TABS 1 pill every other day x 2 doses DIFLUCAN 150 MG TABS 328816 FLUCONAZOLE Inactive Vital Signs Date Name Value [...] ... - Chemistry sodium, serum 140 mmol/L 379-090 9617/05/28 potassium, serum 4.2 mmol/L 3.5-5.2 chloride, serum [...] Panel - Chemistry sodium, serum 141 mmol/L 301-837 7299 potassium, serum 4.3 mmol/L 3.5-5.2 chloride, serum [...] Panel - Chemistry sodium, serum 139 mmol/L 214-272 5934/12/31 potassium, serum 4.8 mmol/L 3.5-5.2 chloride, serum 106 mmol/L 98-107 carbon dioxide, venous blood 24.3 mmol/L 21.0-32.0 blood glucose 90 mg/dL 65-110 urea nitrogen, blood 16 mg/dL 7-18 creatinine, serum 1.00 mg/dL 0.60-1.30 alanine aminotransferase (SGPT), serum 41 U/L 12-78 aspartate aminotransferase (SGOT), serum 17 U/L 15-37 calcium, serum 8.6 mg/dL 8.5-10.1 bilirubin, serum, total 0.30 mg/dL 0.00-1.00 cholesterol, serum 108 mg/dL 811-562 8904/12/31 triglyceride, serum, fasting 120 mg/dL 30-200 HDL cholesterol, serum 28 mg/dL 32-96 LDL cholesterol, serum 56 mg/dL 0-130 Lab Report: MICROALBUMIN - Chemistry albumin/creatinine ratio, urine < 30 mg/g mg/g{creat} 0-29 Lab Report: MICROALBUMIN - Lab microalbumin, urine 10 0-19 Lab Report: UADIP W/MICRO, AUTO, [facility] [place] - Chemistry protein, total urine random Negative mg/dL Negative human chorionic gonadotropin, urine, qualitative (urine test) Negative Negative RBC, urine, dipstick Negative Negative Lab Report: UADIP W/MICRO, AUTO, [facility] [place] - Urinalysis urobilinogen, urine, semiquantitative (dipstick) 0.2 Normal leukocyte esterase, urine, by dipstick Negative Negative nitrite, urine, semiquantitative Negative Negative glucose, urine, semiquantitative Negative Negative ketones, urine, by test strip Negative Negative bilirubin, urine Negative Negative urine color Yellow Colorless;Lightyellow;Straw;Yellow appearance, urine Clear Clear specific gravity, urine 1.025 1.000-1.030 pH, urine, semiquantitative 7.0 5.0-8.5 Lab Report: [facility] [place] IgG,IgM/08210, HEP Be Antibody/556, RUB ... - Serology rubella antibody, serum, IgG 2.88 Encounters Code Encounter Date Provider Facility [place] [address] Level 3 Est. Patient 09:16:24 CDT Vishal Hui MD [facility]35292 Level 4 Est. Patient 13:59:09 CDT Neeraj Collins MD [facility]45641 Level 3 Est. Patient 15:19:43 CDT Renzo Thornton [facility]49360 Level 3 Est. Patient 18:10:26 CDT Sahara Rodriguez MD [place] [id number] Level 3 Est. Patient 14:49:50 CDT Vishal Hui MD [facility]28070 Level 4 Est. Patient 18:41:46 CDT Neeraj Collins MD [facility]16413 Level 4 Est. Patient 09:18:38 DATABASE PROGRAMMER ANALYST Vishal Hui MD [facility]-[address] Level 3 Est. Patient 14:43:55 DATABASE PROGRAMMER ANALYST Vishal Hui MD [facility]47175 Level 3 Est. Patient 15:26:33 DATABASE PROGRAMMER ANALYST Sahara Rodriguez MD PhD [facility]23806 Level 3 Est. Patient 10:32:14 DATABASE PROGRAMMER ANALYST Vishal Hui MD [facility]71284 Level 3 Est. Patient 15:12:52 DATABASE PROGRAMMER ANALYST Vishal Hui MD [facility]-02683 Level 4 Est. Patient 09:19:27 CDT Vishal Hui MD [facility]13825 Level 3 Est. Patient 15:53:00 CDT Renzo Thornton DO [facility]56620 Level 3 Est. Patient 15:50:30 CDT Renzo Thornton DO [facility] CPT-67325 Level 3 Est. Patient 16:55:24 CDT Vishal Hui MD [facility] Procedures Code Procedure Name Date Entry Date Standard Description CPT-99861 Immunization Single Admin 11:07:16 CDT CPT-31259 Hepatitis B adult IM 11:07:16 CDT CPT-J3420 Vitamin B12 1000mcg (Cyanocobalamin) 11:00:49 CDT 08/28 CPT-J1040 Depo Medrol 80 mg (Methyl Prednisolone Acetate) 11:00: 49 CDT CPT-05389 Abx/Therapy Injection 11:00:49 CDT CPT-J1040 Depo Medrol 80 mg (Methyl Prednisolone Acetate) 09:16: 23 CDT CPT-J3420 Vitamin B12 1000mcg (Cyanocobalamin) 08:27:05 CDT 08/20 CPT-45131 Abx/Therapy Injection 08:27:05 CDT CPT-34581 Recombivax HB Injection Suspension 5 MCG/0.5ML 10:00:41 CDT CPT-97788 Administration single or combination vaccine inc oral 10 :00:41 CDT CPT-45777 Sono transvag pelvis non OB uterus ovaries cervix 16:36: 57 CDT CPT-77203 LS spine comp w obliq 09:50:55 DATABASE PROGRAMMER ANALYST CPT-18252 Abd compl w upright 09:50:55 DATABASE PROGRAMMER ANALYST CPT-J1100 Decadron 4mg (Dexamethasone) 15:51:24 DATABASE PROGRAMMER ANALYST CPT-J1030 Depo Medrol 40 mg (Methyl Prednisolone Acetate) 15:51: 24 DATABASE PROGRAMMER ANALYST CPT-99724 Abx/Therapy Injection 15:51:24 DATABASE PROGRAMMER ANALYST CPT-J1100 Decadron 4mg (Dexamethasone) 15:26:33 DATABASE PROGRAMMER ANALYST CPT-J1030 Depo Medrol 40 mg (Methyl Prednisolone Acetate) 15:26: 33 DATABASE PROGRAMMER ANALYST CPT-28796 Sono retroperitoneal complete kidneys and bladder 17:15: 30 CDT CPT-59943 Abd compl w upright 16:09:25 CDT CPT-J1100 Decadron 8mg (Dexamethasone) 17:07:57 CDT CPT-86630 Abx/Therapy Injection 17:07:57 CDT CPT-J1100 Decadron 8mg (Dexamethasone) 16:55:24 CDT CPT-14839 Chest 2V Frontal and Lat 16:32:44 CDT
--- OUTSIDE RECORDS SUMMARY | 2016-11-04 20:40 | XMS REPORT | Clinical Summary ---
Author Author Admin, E Organization [employer] Address Unknown Phone Unavailable Allergies, Adverse Reactions, [...] Active Ahmet Carbajal MD Generalized anxiety disorder Pole Maker well woman exam V72.31 Active Suzan Boo [...] Health screening ICD-V70.0 Inactive Suzan Boo MANAGER RELIABILITY Sinus tachycardia ICD-427.89 Inactive Suzan Boo MANAGER RELIABILITY Abdominal pain ICD-789.00 Inactive Vishal Hui MD Cellulitis ICD-682.9 Inactive Vishal Hui MD Pelvic pain ICD-625.9 Inactive Vishal Hui MD Abscess, skin ICD-682.9 Inactive Vishal Hui MD Physical examination ICD-V70.0 Inactive Vishal Hui MD Smoker/tobacco use disorder-smoking cessation discussed ICD-305.1 Inactive Vishal Hui MD Vaginitis ICD-616.10 Jim Hui MD Vaginitis, candidal ICD-112.1 Inactive Vishal Hui MD Other abnormal blood chemistry ICD-790.6 Jim Hui MD 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 Jim Hui MD Boils, recurrent ICD-680.9 Inactive Vishal Hui MD Postconcussion syndrome ICD-310.2 Jim Hui MD Nevus, 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 Jim Phillipslow MD Encounter for removal of sutures ICD-V58.32 Inactive Vishal Hui MD Fatigue ICD-780.79 Inactive Vishal Hui MD 2014 Hot flashes ICD-627.2 Inactive [...] APRN DYSURIA ICD-788.1 Inactive Suzan Boo APRN Headache, atypical ICD-784.0 Inactive Albert Caldera MD Nondisplaced transverse fracture of shaft of [...] SOLN 30mL oral daily for IBS-C LACTULOSE 79253231412 Active Suzan Boo APRN Active TESSALON PERLES 100 MG CAPS 1 three times a day as needed for cough BENZONATATE 03179351934 No Longer Active Suzan Boo APRN Active BACTRIM DS 800-160 MG TABS 1 twice a day SULFAMETHOXAZOLE-TRIMETHOPRIM 09306065509 No Longer Active Suzan Boo APRN Active DIFLUCAN 150 MG TABS 1 by mouth for yeast FLUCONAZOLE 26856192957 No Longer Active Suzan Boo APRN Active EQ NICOTINE 21 MG/24HR TRANS PT24 Apply daily to stop smoking NICOTINE 41616108848 No Longer Active Suzan Boo APRN Active PREDNISONE 10 MG TABS 2 daily for 5 days then 1 daily for 5 days PREDNISONE 43100631533 No Longer Active Suzan Boo APRN Active LEVAQUIN 500 MG TABS 1 daily for infection LEVOFLOXACIN 48780502711 No Longer Active Suzan Boo APRN Active TROPICAMIDE 0.5 % OPHTH SOLN 1 drop PRN eye spasms TROPICAMIDE 59157254396 No Longer Active Suzan Boo APRN Active PREDNISONE 20 MG TAB 1 tablet daily x 4 days PREDNISONE 93774406021 No Longer Active Suzan Boo APRN Active ACETAMINOPHEN-CODEINE 120-12 MG/5ML SOLN 5 ml by mouth every 4-6 hours if needed for cough ACETAMINOPHEN-CODEINE 78897556674 No Longer Active Suzan Boo APRN Active KEFLEX 500 MG CAP 1 po qid CEPHALEXIN 56668527858 No Longer Active Suzan Boo APRN Active FLOVENT HFA 110 MCG/ACT AERO 2 puffs inhaled b.i.d. FLUTICASONE PROPIONATE HFA 22635277244 Active Renzo Thornton DO Active RISPERDAL 4 MG ORAL TABS 1 tab at bedtime RISPERIDONE 47194169977 Active Samantha Rothman RMA Active ZOFRAN 4 MG TABS 1 po q6hr PRN Nausea ONDANSETRON HCL No Longer Active Suzan Boo APRN Active FLUTICASONE PROPIONATE 50 MCG/ACT SUSP 2 sprays each nostril daily before bed. FLUTICASONE PROPIONATE 67336805580 No Longer Active Suzan Boo APRN Active ASPIRIN 325 MG ORAL TABS 1 tab q.d ASPIRIN 11328089889 No Longer Active Suzan Boo APRN Active HALOPERIDOL 10 MG ORAL TABS 1 tab q.d HALOPERIDOL 48687938534 No Longer Active Suzan Boo APRN Active GUAIFENESIN-CODEINE 100-10 MG/5ML SYRP 5ml every 4 to 6 hours as needed for cough GUAIFENESIN-CODEINE 95916116337 No Longer Active Suzan Boo APRN Active ZITHROMAX Z-EARNEST 250 MG TABS 2 today and then 1 daily for 4 days AZITHROMYCIN 10604409101 No Longer Active Suzan Boo APRN Active CLONAZEPAM 1 MG ORAL TABS 1 twice a day and an additional 1 tablet every other day as needed for pseudoseizures or anxiety CLONAZEPAM 01223873525 Active Ahmet Carbajal MD Active HYDROCODONE-ACETAMINOPHEN 5-325 MG ORAL TABS 1 tab two times a day HYDROCODONE-ACETAMINOPHEN 68560967734 No Longer Active Ahmet Carbajal MD Active LAMICTAL 100 MG ORAL TABS 1 tab 2 times qd. LAMOTRIGINE 20098813766 Active Ahmet Carbajal MD Active PREDNISONE 20 MG TABS 2 daily for 5 days then 1 daily for 5 days PREDNISONE 05627550908 No Longer Active Ahmet Carbajal MD Active FLUTICASONE PROPIONATE 50 MCG/ACT SUSP 1 to 2 sprays each nostril daily for allergies FLUTICASONE PROPIONATE 31921678253 Active Tila Valenzuela Active BENADRYL 25 MG CAP 4 po at bedtime for insomnia DIPHENHYDRAMINE HCL 68038860332 No Longer Active Ahmet Carbajal MD Active ADVAIR DISKUS 250-50 MCG/DOSE INH AEPB 1 puff twice a day for asthma FLUTICASONE-SALMETEROL 31030031102 No Longer Active Ahmet Carbajal MD Active KLONOPIN 1 MG ORAL TABS 1 tab po TID CLONAZEPAM 98907435027 No Longer Active Ahmet Carbajal MD Active ABILIFY MAINTENA 400 MG IM SUSR 400mg injection every 26 days ARIPIPRAZOLE 34755245312 No Longer Active Ahmet Carbajal MD Active TRAMADOL HCL 50 MG TABS 1/2-1 tab TID PRN TRAMADOL HCL 75934058902 No Longer Active Ahmet Carbajal MD Active BACTRIM DS 800-160 MG TABS 1 twice a day SULFAMETHOXAZOLE- TRIMETHOPRIM 83887603988 No Longer Active Ahmet Carbajal MD Active PROAIR HFA 108 (90 BASE) MCG/ACT AERS 2 puffs four times a day as needed 2015 ALBUTEROL SULFATE 54633853011 Active Ahmet Carbajal MD Active MONISTAT 7 COMBO PACK WOODROW 100 & 2 MG-% (9GM) VAG KIT 1 applicatorful per vagina q pm x 7 MICONAZOLE NITRATE 39428526134 No Longer Active Ahmet Carbajal MD Active FLAGYL 500 MG TAB 1 tablet by mouth bid METRONIDAZOLE 01759640169 No Longer Active Ahmet Carbajal MD Active OXYCODONE HCL ER 10 MG ORAL T12A 1/2 tab by mouth every 4 hours prn OXYCODONE HCL 87281853854 No Longer Active Ahmet Carbajal MD Active METHYLPREDNISOLONE 4 MG ORAL TABS po daily METHYLPREDNISOLONE 89533514806 No Longer Active Ahmet Carbajal MD Active LEVOFLOXACIN 500 MG ORAL TABS po daily LEVOFLOXACIN 28765098177 No Longer Active Ahmet Carbajal MD Active VIIBRYD 10 MG ORAL TABS Take 1 tablet once a day VILAZODONE HCL 55903335033 No Longer Active Ahmet Carbajal MD Active TOPAMAX 50 MG ORAL TABS 1 tab twice daily TOPIRAMATE 65476434065 No Longer Active Ahmet Carbajal MD Active DICLOFENAC SODIUM 50 MG TBEC 1 tablet by mouth four times daily PRN Pain 2015 DICLOFENAC SODIUM 88418998473 No Longer Active Ahmet Carbajal MD Active ADZENYS XR-ODT 6.3 MG ORAL TBED 1 tab po daily for ADHD AMPHETAMINE 24742979071 No Longer Active Ahmet Carbajal MD Active CHANTIX 1 MG TABS 1 twice a day to help quit smoking VARENICLINE TARTRATE 12335597702 No Longer Active Dipika Burgos MD Active CHANTIX STARTING MONTH EARNEST 0.5 MG X 11 & 1 MG X 42 TABS take as directed 2015 VARENICLINE TARTRATE 66202291151 No Longer Active Dipika Burgos MD Active TESSALON PERLES 100 MG CAP 1 to 2 tablets by mouth 3 times daily as needed for cough BENZONATATE 61816123292 No Longer Active Luigi Martínez APRN Active IMITREX 50 MG ORAL TABS 0.5 po x 1 PRN Headache. May repeat dose x 1 in 2 hours if needed SUMATRIPTAN SUCCINATE 58227481544 Active Ahmet Carbajal MD Active HYDROCODONE-ACETAMINOPHEN 5-325 MG TABS 1 to 2 four times a day as needed for pain use until can be seen by specialist HYDROCODONE- ACETAMINOPHEN 84037176751 No Longer Active Vishal Hui MD Active PROAIR HFA 108 (90 BASE) MCG/ACT AERS 2 puffs four times a day as needed 2015 ALBUTEROL SULFATE 19706240063 No Longer Active Vishal Hui MD Active PREDNISONE 20 MG TABS 2 daily for 5 days then 1 daily for 5 days PREDNISONE 20810232420 No Longer Active Vishal Hui MD Active ZITHROMAX Z-EARNEST 250 MG TABS 2 today and then 1 daily for 4 days AZITHROMYCIN 19925655854 No Longer Active Vishal Hui MD Active DICLOFENAC POTASSIUM TABS Take 1 tablet twice a day (pt. is not sure of the dose.) DICLOFENAC POTASSIUM TABS 67049520837 No Longer Active Vishal Hui MD Active VERAPAMIL HCL ER 120 MG ORAL CR-TABS Take 1 tablet by mouth twice a day. VERAPAMIL HCL 95892401117 Active Vishal Hui MD Active FLAGYL 500 MG TAB 1 tablet by mouth bid METRONIDAZOLE 10081768402 No Longer Active Vishal Hui MD Active VALIUM 5 MG TAB Take 1-2 tablets daily DIAZEPAM 72100149676 No Longer Active Fabiola Johnson APRN Active METOPROLOL TARTRATE 25 MG ORAL TABS 1/2 tablet twice daily for heart rate and blood pressure METOPROLOL TARTRATE 47511132139 No Longer Active Fabiola Johnson APRN Active MIRALAX ORAL POWD 17GMS DAILY IN WATER POLYETHYLENE GLYCOL 3350 25756921487 Active TAMARA Casey Active MIRALAX PACK 1 po qd PRN Constipation POLYETHYLENE GLYCOL 3350 65582050018 No Longer Active Ahmet Carbajal MD Active MINIPRESS 2 MG CAPS 4 cap po at night PRAZOSIN HCL 00469926016 No Longer Active Ahmet Carbajal MD Active PIROXICAM 20 MG CAPS 1 cap po qd PRN Pain PIROXICAM 09810804284 No Longer Active Ahmet Carbajal MD Active TRAMADOL HCL 50 MG TABS 1-2 po TID PRN Pain TRAMADOL HCL 86267392286 No Longer Active Ahmet Carbajal MD Active METOPROLOL TARTRATE 50 MG TAB 1 po bid METOPROLOL TARTRATE 49873858765 No Longer Active Ahmet Carbajal MD Active ABILIFY 15 MG ORAL TABS 1 tab daily ARIPIPRAZOLE 32113936281 No Longer Active Ahmet Carbajal MD Active PROZAC 20 MG ORAL CAPS 1 tab daily FLUOXETINE HCL 14325089548 No Longer Active Ahmet Carbajal MD Active AMBIEN 5 MG ORAL TABS 1 tab at bedtime ZOLPIDEM TARTRATE 54073997285 No Longer Active Ahmet Carbajal MD Active PREDNISONE 20 MG TAB 2 tabs daily for 4 days, 1 tab daily for 4 days, 1/2 tab daily for 4 days PREDNISONE 04900823878 No Longer Active Ahmet Carbajal MD Active KEFLEX 500 MG CAP 1 po TID x 10 days CEPHALEXIN 42423771665 No Longer Active Vishal Hui MD Active SAPHRIS 5 MG SUBL 1 po bid ASENAPINE MALEATE 27365621932 No Longer Active Jillina Mauricio MANAGER RELIABILITY Active LATUDA 80 MG TABS Take one by mouth daily LURASIDONE HCL 51892842696 No Longer Active Jillina Frazell MANAGER RELIABILITY Active AMLODIPINE BESYLATE 5 MG TABS 1 tablet by mouth daily AMLODIPINE BESYLATE 35238418222 No Longer Active Jillina Mauricio WALTERSN Active AMITRIPTYLINE HCL 100 MG TAB one at hs AMITRIPTYLINE HCL 91965824185 No Longer Active Vishal Hui MD Active TRAZODONE HCL 100 MG TAB take 1 at bedtime TRAZODONE HCL 79231899293 No Longer Active Vishal Hui MD Active VYVANSE 40 MG CAPS 1 daily, LISDEXAMFETAMINE DIMESYLATE 56592187309 No Longer Active Vishal Hui MD Active IBUPROFEN 600 MG TAB 1 po TID PRN IBUPROFEN 24675370188 No Longer Active Vishal Hui MD Active PROZAC 20 MG CAP Take one by mouth daily FLUOXETINE HCL 38800935525 No Longer Active Vishal Hui MD Active BACTRIM DS 800-160 MG TABS 1 pill by mouth twice daily SULFAMETHOXAZOLE-TRIMETHOPRIM 43557445013 No Longer Active Sahara Rodriguez MD PhD Active DIFLUCAN 150 MG TAB 1 tablet by mouth daily FLUCONAZOLE 43564509757 No Longer Active Vishal Hui MD Active TIZANIDINE HCL 4 MG TABS 1 po q6hr PRN Muscle Spasm/Back Pain TIZANIDINE HCL 99668754902 Active Vishal Hui MD Active CLINDAMYCIN HCL 150 MG CAPS 1 four times a day CLINDAMYCIN HCL 83453173632 No Longer Active Neeraj Collins MD Active KEFLEX 500 MG ORAL CAPS 1 cap QID by mouth CEPHALEXIN 58689499492 No Longer Active Neeraj Collins MD Active DIFLUCAN 150 MG TABS 1 pill every other day x 2 doses FLUCONAZOLE 60789240514 No Longer Active Sahara Rodriguez MD PhD Active MELATONIN 3 MG CAPS 2 po q hs MELATONIN 34143498533 No Longer Active Sahara Rodriguez MD PhD Active MULTIVITAMINS CAPS Take one by mouth daily MULTIPLE VITAMIN 43171391687 No Longer Active Sahara Rodriguez MD PhD Active BACTRIM DS 800-160 MG TAB 1 tab by mouth twice daily TRIMETHOPRIM-SULFAMETHOXAZOLE 99269099647 No Longer Active Sahara Rodriguez MD PhD Active [facility] PROBIOTIC ORAL CHEW 2 daily po PROBIOTIC PRODUCT 37480226302 No Longer Active Sahara Rodriguez MD PhD Active BACTRIM DS 800-160 MG TABS 1 po BID x 7 days SULFAMETHOXAZOLE-TRIMETHOPRIM 57803501482 No Longer Active Vishal Hui MD Active CHANTIX STARTING MONTH EARNEST 0.5 MG X 11 & 1 MG X 42 TABS 0.5mg daily for 3 days , then 0.5mg BID for 4 days, then 1mg BID VARENICLINE TARTRATE 16346583486 No Longer Active TAMARA Gray Active VERAPAMIL HCL CR 120 MG TAB CR 1 po bid VERAPAMIL HCL 94733784658 No Longer Active Vishal Hui MD Active METOPROLOL SUCCINATE 50 MG TB24 1 tablet by mouth daily METOPROLOL SUCCINATE 95895005970 No Longer Active Vishal Hui MD Active SAPHRIS 10 MG SUBL 1 tab po bid ASENAPINE MALEATE 30428728393 No Longer Active Vishal Hui MD Active LISINOPRIL 20 MG TABS 1 tab po qd LISINOPRIL 02176879508 No Longer Active Vishal Hui MD Active LATUDA 20 MG TABS Take one by mouth daily LURASIDONE HCL 16293716373 No Longer Active Vishal Hui MD Active TRAZODONE HCL 50 MG TABS 1/2 tab po qd prn for anxiety TRAZODONE HCL 88968782443 No Longer Active Vishal Hui MD Active OMEPRAZOLE 20 MG TBEC 1 po q a.m. 30min prior to first food intake OMEPRAZOLE 47507588808 Active TAMARA Casey Active RANITIDINE HCL 150 MG CAPS 1 twice a day RANITIDINE HCL 31550217719 Active Jilljanee Martínez APRN Active LINZESS 290 MCG CAPS Take one by mouth daily LINACLOTIDE 07446433195 No Longer Active Vishal Hui MD Active SAPHRIS 5 MG SUBL 1 tab po qd ASENAPINE MALEATE 39701364772 No Longer Active Vishal Hui MD Active ZALEPLON 10 MG CAPS 1 cap po every other night ZALEPLON 49781464014 No Longer Active Vishal Hui MD Active LYRICA 50 MG CAPS 1 tab po TID PREGABALIN 26146374403 No Longer Active Vishal Hui MD Active LORATADINE 10 MG TABS 1 tab po qd LORATADINE 82519499406 No Longer Active Vishal Hui MD Active VERAPAMIL HCL ER 180 MG CR-TABS 1 tab po bid VERAPAMIL HCL 28966477559 No Longer Active Vishal Hui MD Active MIRALAX POWD 1 capfull once daily POLYETHYLENE GLYCOL 3350 31709720085 No Longer Active Vishal Hui MD Active PREDNISONE 20 MG TABS 1 tab po qd PREDNISONE 20194620749 No Longer Active Renzo Thornton DO Active LEVOFLOXACIN 500 MG TABS 1 tab po qd LEVOFLOXACIN 58225318453 No Longer Active Renzo W Norberto DO Active BUSPIRONE HCL 15 MG TABS 1 tab po TID BUSPIRONE HCL 26795094621 No Longer Active Renzo Thornton DO Active BENZTROPINE MESYLATE 1 MG TABS 1 tab po qd BENZTROPINE MESYLATE 91803961118 No Longer Active Renzo Thornton DO Active ATENOLOL 25 MG TABS 1 tab po qd ATENOLOL 21391864054 No Longer Active Renzo Thornton DO Active ESCITALOPRAM OXALATE 20 MG TABS 1 tab po qd ESCITALOPRAM OXALATE 05044681842 No Longer Active Renzo Thornton DO Active ADVAIR DISKUS 250-50 MCG/DOSE AEPB 1 puff BID FLUTICASONE-SALMETEROL 56161466815 No Longer Active Renzo Thornton DO Active PREDNISONE 20 MG TAB 2 tabs daily for 3 days, 1 tab daily for 3 days, 1/2 tab daily for 2 days PREDNISONE 95296592866 No Longer Active Vishal Hui MD Active CEFDINIR 300 MG CAPS by mouth twice a day CEFDINIR 69639459055 No Longer Active Vishal Hui MD Active LANSOPRAZOLE 30 MG CPDR 1 cap po qd LANSOPRAZOLE 07469144028 No Longer Active Vishal Hui MD Active BACLOFEN 20 MG TABS 1 tab po tid BACLOFEN 82290850619 No Longer Active Vishal Hui MD Active ADVAIR DISKUS 250-50 MCG/DOSE AEPB 1 puff BID ADVAIR DISKUS 250-50 MCG/DOSE AEPB FLUTICASONE-SALMETEROL Inactive ESCITALOPRAM OXALATE 20 MG TABS 1 tab po qd ESCITALOPRAM OXALATE 20 MG TABS 937158 ESCITALOPRAM OXALATE Inactive ATENOLOL 25 MG TABS 1 tab po qd ATENOLOL 25 MG TABS 339647 ATENOLOL Inactive BENZTROPINE MESYLATE 1 MG TABS 1 tab po qd BENZTROPINE MESYLATE 1 MG TABS 642221 BENZTROPINE MESYLATE Inactive BUSPIRONE HCL 15 MG TABS 1 tab po TID BUSPIRONE HCL 15 MG TABS 090120 BUSPIRONE HCL Inactive LEVOFLOXACIN 500 MG TABS 1 tab po qd LEVOFLOXACIN 500 MG TABS 950664 LEVOFLOXACIN Inactive PREDNISONE 20 MG TABS 1 tab po qd PREDNISONE 20 MG TABS 248016 PREDNISONE Inactive MIRALAX POWD 1 capfull once daily MIRALAX POWD 181453 POLYETHYLENE GLYCOL 3350 Inactive VERAPAMIL HCL ER 180 MG CR-TABS 1 tab po bid VERAPAMIL HCL ER 180 MG CR-TABS VERAPAMIL HCL Inactive LORATADINE 10 MG TABS 1 tab po qd LORATADINE 10 MG TABS 942296 LORATADINE Inactive LYRICA 50 MG CAPS 1 tab po TID LYRICA 50 MG CAPS PREGABALIN Inactive ZALEPLON 10 MG CAPS 1 cap po every other night ZALEPLON 10 MG CAPS 665212 ZALEPLON Inactive SAPHRIS 5 MG SUBL 1 tab po qd SAPHRIS 5 MG SUBL ASENAPINE MALEATE Inactive TRAZODONE HCL 50 MG TABS 1/2 tab po qd prn for anxiety TRAZODONE HCL 50 MG TABS 378534 TRAZODONE HCL Inactive LATUDA 20 MG TABS Take one by mouth daily LATUDA 20 MG TABS LURASIDONE HCL Inactive LISINOPRIL 20 MG TABS 1 tab po qd LISINOPRIL 20 MG TABS 515387 LISINOPRIL Inactive SAPHRIS 10 MG SUBL 1 [...] twice daily BACTRIM DS 800-160 MG TAB 773133 TRIMETHOPRIM-SULFAMETHOXAZOLE Inactive MULTIVITAMINS CAPS Take one by mouth daily MULTIVITAMINS CAPS MULTIPLE VITAMIN Inactive MELATONIN 3 MG CAPS 2 po q hs MELATONIN 3 MG CAPS 088257 MELATONIN Inactive KEFLEX 500 MG ORAL CAPS 1 cap QID by mouth KEFLEX 500 MG ORAL CAPS 160206 CEPHALEXIN Inactive CLINDAMYCIN HCL 150 MG CAPS 1 four times a day CLINDAMYCIN HCL 150 MG CAPS 210153 CLINDAMYCIN HCL Inactive DIFLUCAN 150 MG TAB 1 tablet by mouth daily DIFLUCAN 150 MG TAB 294315 FLUCONAZOLE Inactive PROZAC 20 MG CAP Take one by mouth daily PROZAC 20 MG CAP 852531 FLUOXETINE HCL Inactive IBUPROFEN 600 MG TAB 1 po TID PRN IBUPROFEN 600 MG TAB 789471 IBUPROFEN Inactive VYVANSE 40 MG CAPS 1 daily, VYVANSE 40 MG CAPS LISDEXAMFETAMINE DIMESYLATE Inactive TRAZODONE HCL 100 MG TAB take 1 at bedtime TRAZODONE HCL 100 MG TAB 580565 TRAZODONE HCL Inactive AMITRIPTYLINE HCL 100 MG TAB one at hs AMITRIPTYLINE HCL 100 MG TAB 389029 AMITRIPTYLINE HCL Inactive AMLODIPINE BESYLATE 5 MG TABS 1 tablet by mouth daily AMLODIPINE BESYLATE 5 MG TABS 583371 AMLODIPINE BESYLATE Inactive LATUDA 80 MG TABS Take one by mouth daily LATUDA 80 MG TABS LURASIDONE HCL Inactive SAPHRIS 5 MG SUBL 1 po bid SAPHRIS 5 MG SUBL ASENAPINE MALEATE Inactive PREDNISONE 20 MG TAB 2 tabs daily for 4 days, 1 tab daily for 4 days, 1/2 tab daily for 4 days PREDNISONE 20 MG TAB 576904 PREDNISONE Inactive AMBIEN 5 MG ORAL TABS 1 tab at bedtime AMBIEN 5 MG ORAL TABS 793765 ZOLPIDEM TARTRATE Inactive PROZAC 20 MG ORAL CAPS 1 tab daily PROZAC 20 MG ORAL CAPS 731941 FLUOXETINE HCL Inactive ABILIFY 15 MG ORAL TABS 1 tab daily ABILIFY 15 MG ORAL TABS 483712 ARIPIPRAZOLE Inactive METOPROLOL TARTRATE 50 MG TAB 1 po bid METOPROLOL TARTRATE 50 MG TAB 588029 METOPROLOL TARTRATE Inactive TRAMADOL HCL 50 MG TABS 1-2 po TID PRN Pain TRAMADOL HCL 50 MG TABS 089410 TRAMADOL HCL Inactive PIROXICAM 20 MG CAPS 1 cap po qd PRN Pain PIROXICAM 20 MG CAPS 758930 PIROXICAM Inactive MINIPRESS 2 MG CAPS 4 cap po at night MINIPRESS 2 MG CAPS 368407 PRAZOSIN HCL Inactive MIRALAX PACK 1 po qd PRN Constipation MIRALAX PACK 041421 POLYETHYLENE GLYCOL 3350 Inactive METOPROLOL TARTRATE 25 MG ORAL TABS 1/2 tablet twice daily for heart rate and blood pressure METOPROLOL TARTRATE 25 MG ORAL TABS 551864 METOPROLOL TARTRATE Inactive VALIUM 5 MG TAB Take 1-2 tablets daily VALIUM 5 MG TAB 400484 DIAZEPAM Inactive FLAGYL 500 MG TAB 1 tablet by mouth bid FLAGYL 500 MG TAB 293080 METRONIDAZOLE Inactive DICLOFENAC POTASSIUM TABS Take 1 tablet twice a day (pt. is not sure of the dose.) DICLOFENAC POTASSIUM TABS DICLOFENAC POTASSIUM TABS Inactive ZITHROMAX Z-EARNEST 250 MG TABS 2 today and then 1 daily for 4 days ZITHROMAX Z-EARNEST 250 MG TABS 2837481 AZITHROMYCIN Inactive PREDNISONE 20 MG TABS 2 daily for 5 days then 1 daily for 5 days PREDNISONE 20 MG TABS 651168 PREDNISONE Inactive PROAIR HFA 108 (90 BASE) MCG/ACT AERS 2 puffs four times a day as needed 2015 PROAIR HFA 108 (90 BASE) MCG/ACT AERS ALBUTEROL SULFATE Inactive HYDROCODONE-ACETAMINOPHEN 5-325 MG TABS 1 to 2 four times a day as needed for pain use until can be seen by specialist HYDROCODONE- ACETAMINOPHEN 5-325 MG TABS 009142 HYDROCODONE-ACETAMINOPHEN Inactive TESSALON PERLES 100 MG CAP 1 to 2 tablets by mouth 3 times daily as needed for cough TESSALON PERLES 100 MG CAP 790958 BENZONATATE Inactive CHANTIX STARTING MONTH EARNEST 0.5 [...] Pain 2015 DICLOFENAC SODIUM 50 MG TBEC 585509 DICLOFENAC SODIUM Inactive TOPAMAX 50 MG ORAL TABS 1 tab twice daily TOPAMAX 50 MG ORAL TABS 337362 TOPIRAMATE Inactive VIIBRYD 10 MG ORAL TABS Take 1 tablet once a day VIIBRYD 10 MG ORAL TABS VILAZODONE HCL Inactive LEVOFLOXACIN 500 MG ORAL TABS po daily LEVOFLOXACIN 500 MG ORAL TABS 722965 LEVOFLOXACIN Inactive METHYLPREDNISOLONE 4 MG ORAL TABS po daily METHYLPREDNISOLONE 4 MG ORAL TABS 862017 METHYLPREDNISOLONE Inactive OXYCODONE HCL ER 10 MG ORAL T12A 1/2 tab by mouth every 4 hours prn OXYCODONE HCL ER 10 MG ORAL T12A OXYCODONE HCL Inactive FLAGYL 500 MG TAB 1 tablet by mouth bid FLAGYL 500 MG TAB 808576 METRONIDAZOLE Inactive MONISTAT 7 COMBO PACK WOODROW 100 & 2 MG-% (9GM) VAG KIT 1 applicatorful per vagina q pm x 7 MONISTAT 7 COMBO PACK WOODROW 100 & 2 MG-% (9GM) VAG KIT MICONAZOLE NITRATE Inactive BACTRIM DS 800-160 MG TABS 1 twice a day BACTRIM DS 800-160 MG TABS 098557 SULFAMETHOXAZOLE-TRIMETHOPRIM Inactive TRAMADOL HCL 50 MG TABS 1/2-1 tab TID PRN TRAMADOL HCL 50 MG TABS 452857 TRAMADOL HCL Inactive ABILIFY MAINTENA 400 MG IM SUSR 400mg injection every 26 days ABILIFY MAINTENA 400 MG IM SUSR ARIPIPRAZOLE Inactive KLONOPIN 1 MG ORAL TABS 1 tab po TID KLONOPIN 1 MG ORAL TABS 860646 CLONAZEPAM Inactive ADVAIR DISKUS 250-50 MCG/DOSE INH AEPB 1 puff twice a day for asthma ADVAIR DISKUS 250-50 MCG/DOSE INH AEPB FLUTICASONE- SALMETEROL Inactive BENADRYL 25 MG CAP 4 po at bedtime for insomnia BENADRYL 25 MG CAP DIPHENHYDRAMINE HCL Inactive PREDNISONE 20 MG TABS 2 daily for 5 days then 1 daily for 5 days PREDNISONE 20 MG TABS 474791 PREDNISONE Inactive HYDROCODONE-ACETAMINOPHEN 5-325 MG ORAL TABS 1 tab two times a day HYDROCODONE-ACETAMINOPHEN 5-325 MG ORAL TABS 682896 HYDROCODONE-ACETAMINOPHEN Inactive ZITHROMAX Z-EARNEST 250 MG TABS 2 today and then 1 daily for 4 days ZITHROMAX Z-EARNEST 250 MG TABS 2588058 AZITHROMYCIN Inactive GUAIFENESIN-CODEINE 100-10 MG/5ML SYRP 5ml every 4 to 6 hours as needed for cough GUAIFENESIN-CODEINE 100-10 MG/5ML SYRP 951527 GUAIFENESIN-CODEINE Inactive HALOPERIDOL 10 MG ORAL TABS 1 tab q.d HALOPERIDOL 10 MG ORAL TABS 087721 HALOPERIDOL Inactive ASPIRIN 325 MG ORAL TABS 1 tab q.d ASPIRIN 325 MG ORAL TABS 181674 ASPIRIN Inactive FLUTICASONE PROPIONATE 50 MCG/ACT SUSP 2 sprays each nostril daily before bed. FLUTICASONE PROPIONATE 50 MCG/ACT SUSP 3824309 FLUTICASONE PROPIONATE Inactive ZOFRAN 4 MG TABS 1 po q6hr PRN Nausea ZOFRAN 4 MG TABS 434996 ONDANSETRON HCL Inactive KEFLEX 500 MG CAP 1 po qid KEFLEX 500 MG CAP 260943 CEPHALEXIN Inactive ACETAMINOPHEN-CODEINE 120-12 MG/5ML SOLN 5 ml by mouth every 4-6 hours if needed for cough ACETAMINOPHEN-CODEINE 120-12 MG/5ML SOLN 863719 ACETAMINOPHEN-CODEINE Inactive PREDNISONE 20 MG TAB 1 tablet daily x 4 days PREDNISONE 20 MG TAB 462214 PREDNISONE Inactive TROPICAMIDE 0.5 % OPHTH SOLN 1 drop PRN eye spasms TROPICAMIDE 0.5 % [facility] 784391 TROPICAMIDE Inactive LEVAQUIN 500 MG TABS 1 daily for infection LEVAQUIN 500 MG TABS 181451 LEVOFLOXACIN Inactive PREDNISONE 10 MG TABS 2 daily for 5 days then 1 daily for 5 days PREDNISONE 10 MG TABS 593158 PREDNISONE Inactive EQ NICOTINE 21 MG/24HR TRANS [...] for cough TESSALON PERLES 100 MG CAPS 848604 BENZONATATE Inactive CEFDINIR 300 MG CAPS by mouth twice a day CEFDINIR 300 MG CAPS 936880 CEFDINIR Inactive PREDNISONE 20 MG TAB 2 tabs daily for 3 days, 1 tab daily for 3 days, 1/2 tab daily for 2 days PREDNISONE 20 MG TAB 028242 PREDNISONE Inactive BACTRIM DS 800-160 MG TABS [...] x 10 days KEFLEX 500 MG CAP 222003 CEPHALEXIN Inactive Advance Directives Directive Description Start [...] DIFF/PLT)/6399, COMPREHENSIVE METABOLIC PANEL, ... - Hematology hemoglobin, blood 13.3 g/dL 11.7-15.5 hematocrit, blood 40.7 % 35.0-45.0 mean corpuscular volume, RBC 91.4 fL 80.0-100.0 mean corpuscular hemoglobin, RBC 29.9 pg 27.0-33.0 mean corpuscular hemoglobin concentration, RBC 32.8 G/DL % 32.0- 36.0 red blood cell distribution width 12.9 % 11.0-15.0 platelet count 443 THOUSAND/UL 10*3/mm3 692-931 1087/03/01 mean platelet volume 8.2 fL 7.5-12.5 hematocrit, blood 39.8 % 35.0-45.0 mean corpuscular hemoglobin, RBC 31.4 pg 27.0-33.0 mean corpuscular hemoglobin concentration, RBC 33.9 G/DL % 32.0- 36.0 red blood cell distribution width 13.3 % 11.0-15.0 platelet count 349 THOUSAND/UL 10*3/mm3 911-159 4954/04/12 mean platelet volume 8.4 fL 7.5-12.5 mean corpuscular volume, RBC 92.5 fL 80.0-100.0 leukocyte count, blood 8.4 THOUSAND/UL 10*3/mm3 3.8-10.8 erythrocyte (RBC) count 4.30 MILLION/UL 10*6/mm3 3.80-5.10 hemoglobin, blood 13.5 g/dL 11.7-15.5 leukocyte count, blood 16.6 THOUSAND/UL 10*3/mm3 3.8-10.8 erythrocyte (RBC) count 4.46 MILLION/UL 10*6/mm3 3.80-5.10 Lab Report: CBC, Thyroid Stimulating Hormone (L) [...] 369 10^3/MM^3 10*3/mm3 142-424 Lab Report: Chlamydia/GC APTIMA/[id number] - Lab chlamydia DNA probe NOT DETECTED NOT DETECTED Lab Report: Chlamydia/GC APTIMA/83749 - Microbiology Neisseria gonorrhoeae DNA probe NOT DETECTED NOT DETECTED Lab Report: Chlamydia/GC APTIMA/59167, Urinalysis, Complete, with Reflex ... - Lab chlamydia DNA probe NOT DETECTED NOT DETECTED Lab Report: Chlamydia/GC APTIMA/01203, Urinalysis, Complete, with Reflex ... - Microbiology Neisseria gonorrhoeae DNA probe NOT DETECTED NOT DETECTED Lab Report: Chlamydia/GC APTIMA/81116, Urinalysis, Complete, with Reflex ... - Urinalysis microalbumin/total urine volume 2 mg/L Units converted. See lab report for original value. microalbumin/creatinine ratio, urine 9 MCG/MG CREAT mg/L <30 Lab Report: Comp. Metabolic Panel - Chemistry bilirubin, serum, total 0.30 mg/dL 0.00-1.00 sodium, serum 140 mmol/L 080-599 6108/08/08 carbon dioxide, venous blood 33.7 mmol/L 21.0-32.0 [...] 27.6 mmol/L 21.0-32.0 sodium, serum 142 mmol/L 328-304 5685/06/08 calcium, serum 9.4 mg/dL 8.5-10.1 aspartate aminotransferase (SGOT), serum 28 U/L 15-37 alanine aminotransferase (SGPT), serum 49 U/L 12-78 creatinine, serum 0.75 mg/dL 0.55-1.30 urea nitrogen, blood 8 mg/dL 7-18 Lab Report: HEPATITIS PANEL, ACUTE [...] leukocyte esterase, urine, by dipstick Negative Negative appearance, urine Clear Clear nitrite, urine, semiquantitative Negative Negative specific gravity, urine 1.025 1.000-1.030 pH, urine, semiquantitative 6.0 5.0-8.5 glucose, urine, semiquantitative Negative Negative nitrite, urine, semiquantitative Negative Negative urine color Yellow Colorless;Lightyellow;Straw;Yellow appearance, urine Clear Clear specific gravity, urine 1.020 1.000-1.030 pH, urine, semiquantitative 6.0 5.0-8.5 ketones, urine, by test strip Negative Negative bilirubin, urine Negative Negative urobilinogen, urine, semiquantitative (dipstick) 0.2 Normal leukocyte esterase, urine, by dipstick Trace Negative Office Visit: Consult for Painful Lipoma - Basic LDL target level 100 mg/dL Office Visit: Consult for Painful Lipoma - Chemistry cholesterol, target level 200 mg/dL triglyceride, target level 200 mg/dL HDL cholesterol, serum, target level 35 mg/dL Encounters Code Encounter Date Provider Facility CPT-24533 Level 3 Est. Patient 10:00:25 CDT Suzan Boo [facility] CPT-80364 Level 3 Est. Patient 10:29:30 CDT Suzan Boo [facility] CPT-07154 Level 3 Est. Patient 11:04:38 CDT Renzo Thornton [facility] CPT-85265 Level 3 Est. Patient 11:15:58 [employer] Renzo Thornton [facility] CPT-80546 Level 3 Est. Patient 15:28:23 [employer] Suzan Boo [facility] CPT-58264 Level 4 Est. Patient 10:20:54 [employer] Suzan Boo [facility] CPT-61418 Level 3 Est. Patient 11:47:37 [employer] Ahmet Carbajal MD [facility] CPT-55611 Level 3 Est. Patient 10:40:11 [employer] Ahmet Carbajal MD [facility] CPT-95442 Level 3 Est. Patient 15:07:06 [employer] Neeraj Collins MD [facility] CPT-19640 Level 4 Est. Patient 14:45:00 [employer] Ahmet Carbajal MD [facility] CPT-14293 Level 3 Est. Patient 13:59:59 CDT Luigi Martínez [facility] CPT-09006 Level 3 Est. Patient 18:18:53 CDT Neeraj Collins MD [facility] CPT-63035 Level 3 Est. Patient 15:50:44 CDT Vishal Hui MD [facility] CPT-92452 Level 3 Est. Patient 11:36:17 CDT Ahmet Carbajal MD [facility] CPT-20305 Level 3 Est. Patient 13:29:16 CDT Vishal Hui MD [facility] CPT-65865 Level 3 Est. Patient 14:27:52 CDT Neeraj Collins MD [facility] CPT-04137 Level 3 Est. Patient 08:56:03 CDT Luigi Martínez [facility] CPT-53023 Level 4 Est. Patient 12:11:48 CDT Fabiola Johnson [facility] CPT-47365 Level 3 New Patient 16:53:37 CDT Albert Caldera MD [facility] CPT-92081 Level 3 Est. Patient 11:25:49 CDT Renzo Thornton DO [facility] CPT-93617 Level 3 Est. Patient 15:22:01 CDT Ahmet Carbajal MD [facility] CPT-58593 Level 4 Est. Patient 09:00:51 [employer] Vishal Hui MD [facility] CPT-89577 Level 3 Est. Patient 11:37:33 [employer] Vishal Hui MD [facility] CPT-54045 Level 3 Est. Patient 08:41:09 [employer] Vishal Hui MD [facility] CPT-90089 Level 4 Est. Patient 10:19:35 [employer] Vishal Hui MD [facility] CPT-77953 Level 3 Est. Patient 13:35:45 CDT Vishal Hui MD [facility] CPT-28373 Level 4 Est. Patient 10:08:37 CDT Vishal Hui MD [facility]-03205 Level 3 Est. Patient 11:22:10 CDT Vishal Hui MD [facility] CPT-29105 Level 3 Est. Patient 11:03:32 CDT Sahara Rodriguez MD [facility]-48197 Level 3 Est. Patient 09:41:35 CDT Vishal Hui MD [facility] CPT-86535 Level 3 Est. Patient 12:00:41 CDT Neeraj Collins MD [facility]-16398 Level 3 Est. Patient 09:16:24 CDT Vishal Hui MD [facility] CPT-21354 Level 4 Est. Patient 13:59:09 CDT Neeraj Collins MD [facility] CPT-72728 Level 3 Est. Patient 15:19:43 CDT Renzo Thornton DO [facility] CPT-64358 Level 3 Est. Patient 18:10:26 CDT Sahara Rodriguez MD [facility] [place][note 2]-[id number] Level 3 Est. Patient 14:49:50 CDT Vishal Hui MD [facility] CPT-96469 Level 4 Est. Patient 18:41:46 CDT Neeraj Collins MD [facility] CPT-65316 Level 4 Est. Patient 09:18:38 [employer] Vishal Hui MD [facility] CPT-32766 Level 3 Est. Patient 14:43:55 [employer] Vishal Hui MD [facility] CPT-78803 Level 3 Est. Patient 15:26:33 [employer] Sahara Rodriguez MD [facility] [place][note 2]-[id number] Level 3 Est. Patient 10:32:14 [employer] Vishal Hui MD [facility] CPT-46204 Level 3 Est. Patient 15:12:52 [employer] Vishal Hui MD [facility] CPT-67004 Level 4 Est. Patient 09:19:27 CDT Vishal Hui MD [facility] CPT-01415 Level 3 Est. Patient 15:53:00 CDT Renzo Thornton [facility] CPT-03928 Level 3 Est. Patient 15:50:30 CDT Renzo Thornton [facility] CPT-98666 Level 3 Est. Patient 16:55:24 CDT Vishal Hui MD [facility] Procedures Code Procedure Name Date Entry Date Standard Description CPT-71483 Venipuncture Draw Fee 08:41:12 CDT CPT-81327 Abd compl w upright - XRAY USE ONLY 10:27:59 CDT 06/28 CPT-11129 Smoking Cessation counseling 11:15:58 [employer] CPT-G0439 [facility] Annual Wellness Exam 09:30:58 [employer] CPT-88300 TSH - LAB USE ONLY 08:50:26 [employer] CPT-27962 CBC - LAB USE ONLY 08:50:26 [employer] CPT-18004 Venipuncture Draw Fee 08:50:26 [employer] CPT-36093 Abx/Therapy Injection 17:34:30 [employer] CPT-44713 Nexplanon Removal with Reinsertion 14:09:32 CDT CPT-J7307 Nexplanon (Implant) 14:09:32 CDT CPT-OV Office Visit 14:09:32 CDT CPT-72428 UA w micro - LAB USE ONLY 16:21:13 CDT CPT-60106 Wet Mount - LAB USE ONLY 16:21:13 CDT CPT-97760 First Vx - Ix admin for Medicare patients 14:37:47 CDT CPT-50704 Fluzone Preservative Free Intramuscular Suspension 14:37 :47 CDT CPT-17429 Abx/Therapy Injection 13:54:22 CDT CPT-32375 Abx/Therapy Injection 08:47:09 CDT CPT-20465 Abx/Therapy Injection 13:29:56 CDT CPT-13903 Abx/Therapy Injection 08:36:16 CDT CPT-39630 Wet Mount - LAB USE ONLY 17:44:58 CDT CPT-33845 UA w micro - LAB USE ONLY 17:44:58 CDT CPT-30094 CMP - LAB USE ONLY 17:44:58 CDT CPT-92419 Venipuncture Draw Fee 17:44:58 CDT CPT-42425 Cervical Min 4V - XRAY USE ONLY 09:01:40 CDT CPT-02827 Chest 2V Frontal and Lat - XRAY USE ONLY 11:06:31 CDT CPT-81954 EKG Trac and Interp - XRAY USE ONLY 11:31:43 CDT 08/26 CPT-J3420 Vitamin B12 1000mcg (Cyanocobalamin) 08:10:26 [employer] 04/12 CPT-68217 Abx/Therapy Injection 08:10:26 [employer] CPT-G0438 Initial Annual Wellness Exam 19:01:01 [employer] CPT-J3420 Vitamin B12 1000mcg (Cyanocobalamin) 16:57:46 CDT 08/14 CPT-19747 Recombivax HB Injection Suspension 5 MCG/0.5ML 08:37:50 [employer] CPT-53573 Immunization Single Admin 08:37:50 [employer] CPT-J3420 Vitamin B12 1000mcg (Cyanocobalamin) 08:32:16 [employer] 03/11 CPT-25890 Abx/Therapy Injection 08:32:16 [employer] CPT-41358 Chest 2V Frontal and Lat 11:46:38 [employer] CPT-41723 Venipuncture Draw Fee 09:12:45 [employer] CPT-J3420 Vitamin B12 1000mcg (Cyanocobalamin) 08:50:15 [employer] 02/08 CPT-32581 Abx/Therapy Injection 08:50:15 [employer] CPT-Cryo Cryotherapy 10:19:35 [employer] CPT-000 Give Appropriate Flu Vaccine 09:22:16 CDT CPT-J3420 Vitamin B12 1000mcg (Cyanocobalamin) 19:08:57 CDT 01/11 CPT-07935 Abx/Therapy Injection 19:08:57 CDT CPT-J3420 Vitamin B12 1000mcg (Cyanocobalamin) 08:19:08 CDT 12/11 CPT-92477 Abx/Therapy Injection 08:19:08 CDT CPT-J3420 Vitamin B12 1000mcg (Cyanocobalamin) 14:48:00 CDT 11/09 CPT-35975 Abx/Therapy Injection 14:47:59 CDT CPT-J3420 Vitamin B12 1000mcg (Cyanocobalamin) 08:34:04 CDT 10/09 CPT-16431 Abx/Therapy Injection 08:34:04 CDT CPT-J3420 Vitamin B12 1000mcg (Cyanocobalamin) 09:18:52 CDT 09/11 CPT-66331 Abx/Therapy Injection 09:18:52 CDT CPT-J3420 Vitamin B12 1000mcg (Cyanocobalamin) 08:35:44 CDT 09/04 CPT-95106 Abx/Therapy Injection 08:35:44 CDT CPT-15295 Immunization Single Admin 11:07:16 CDT CPT-96570 Hepatitis B adult IM 11:07:16 CDT CPT-J3420 Vitamin B12 1000mcg (Cyanocobalamin) 11:00:49 CDT 08/28 CPT-J1040 Depo Medrol 80 mg (Methyl Prednisolone Acetate) 11:00: 49 CDT CPT-90757 Abx/Therapy Injection 11:00:49 CDT CPT-J1040 Depo Medrol 80 mg (Methyl Prednisolone Acetate) 09:16: 23 CDT CPT-J3420 Vitamin B12 1000mcg (Cyanocobalamin) 08:27:05 CDT 08/20 CPT-72940 Abx/Therapy Injection 08:27:05 CDT CPT-99286 Recombivax HB Injection Suspension 5 MCG/0.5ML 10:00:41 CDT CPT-17901 Administration single or combination vaccine inc oral 10 :00:41 CDT CPT-87820 Sono transvag pelvis non OB uterus ovaries cervix 16:36: 57 CDT CPT-21275 LS spine comp w obliq 09:50:55 [employer] CPT-08252 Abd compl w upright 09:50:55 [employer] CPT-J1100 Decadron 4mg (Dexamethasone) 15:51:24 [employer] CPT-J1030 Depo Medrol 40 mg (Methyl Prednisolone Acetate) 15:51: 24 [employer] CPT-69647 Abx/Therapy Injection 15:51:24 [employer] CPT-J1100 Decadron 4mg (Dexamethasone) 15:26:33 [employer] CPT-J1030 Depo Medrol 40 mg (Methyl Prednisolone Acetate) 15:26: 33 [employer] CPT-93265 Sono retroperitoneal complete kidneys and bladder 17:15: 30 CDT CPT-20148 Abd compl w upright 16:09:25 CDT CPT-J1100 Decadron 8mg (Dexamethasone) 17:07:57 CDT CPT-12116 Abx/Therapy Injection 17:07:57 CDT CPT-J1100 Decadron 8mg (Dexamethasone) 16:55:24 CDT CPT-57107 Chest 2V Frontal and Lat 16:32:44 CDT
--- OUTSIDE RECORDS SUMMARY | 2016-11-04 20:42 | XMS REPORT | Clinical Summary ---
Author Author Admin, E Organization [employer] Address Unknown Phone Unavailable Allergies, Adverse Reactions, [...] MD Postconcussion syndrome Nevus, atypical 216.9 Resolved iVshal Hui MD Benign neoplasm of skin, site [...] 1/2 tab daily for 4 days PREDNISONE 62107936294 Active Vishal Hui MD Active IMITREX 50 MG ORAL TABS 1/2 tab every 6 hours prn SUMATRIPTAN SUCCINATE 16883308095 Active Tataina Mauricio NORIEGA Active AMBIEN 5 MG ORAL TABS 1 tab at bedtime ZOLPIDEM TARTRATE 17008998753 Active Pacollina Mauricio WALTERSN Active PROZAC 20 MG ORAL CAPS 1 tab daily FLUOXETINE HCL 96710764228 Active Jillina Johnl INJECTION MOLDING MACHINE SETTER Active ABILIFY 15 MG ORAL TABS 1 tab daily ARIPIPRAZOLE 61140759606 Active Jillina Johnl INJECTION MOLDING MACHINE SETTER Active MINIPRESS 2 MG CAPS 4 cap po at night PRAZOSIN HCL 53932787982 Active Jillina Frazell INJECTION MOLDING MACHINE SETTER Active TOPAMAX 50 MG ORAL TABS 1 tab twice daily TOPIRAMATE 24174921423 Active Pacollina Mauricio WALTERSN Active SAPHRIS 5 MG SUBL 1 po bid ASENAPINE MALEATE 31436506057 No Longer Active Pacollina Mauricio NORIEGA Active LATUDA 80 MG TABS Take one by mouth daily LURASIDONE HCL 84863811167 No Longer Active Pacollina Mauricio WALTERSN Active AMLODIPINE BESYLATE 5 MG TABS 1 tablet by mouth daily AMLODIPINE BESYLATE 96005019361 No Longer Active Tataina Mauricio NORIEGA Active AMITRIPTYLINE HCL 100 MG TAB one at hs AMITRIPTYLINE HCL 69803817595 No Longer Active Vishal Hui MD Active TRAZODONE HCL 100 MG TAB take 1 at bedtime TRAZODONE HCL 57235607889 No Longer Active Vishal Hui MD Active VYVANSE 40 MG CAPS 1 daily, LISDEXAMFETAMINE DIMESYLATE 12124193408 No Longer Active Vishal Hui MD Active IBUPROFEN 600 MG TAB 1 po TID PRN IBUPROFEN 33215723438 No Longer Active Vishal Hui MD Active MIRALAX PACK 1 po qd PRN Constipation POLYETHYLENE GLYCOL 3350 05806551894 Active Vishal Hui MD Active PROZAC 20 MG CAP Take one by mouth daily FLUOXETINE HCL 43929539822 No Longer Active Vishal Hui MD Active ZOFRAN 4 MG TABS 1 po q6hr PRN Nausea ONDANSETRON HCL Active Vishal Hui MD Active BACTRIM DS 800-160 MG TABS 1 pill by mouth twice daily SULFAMETHOXAZOLE-TRIMETHOPRIM 95851183510 No Longer Active Sahara Rodriguez MD PhD Active DIFLUCAN 150 MG TAB 1 tablet by mouth daily FLUCONAZOLE 43041409687 No Longer Active Vishal Hui MD Active TIZANIDINE HCL 4 MG TABS 1 po q6hr PRN Muscle Spasm/Back Pain TIZANIDINE HCL 56671110691 Active Luigi Martínez APRN Active CLINDAMYCIN HCL 150 MG CAPS 1 four times a day CLINDAMYCIN HCL 09481537613 No Longer Active Neeraj Collins MD Active KEFLEX 500 MG ORAL CAPS 1 cap QID by mouth CEPHALEXIN 29124003672 No Longer Active Neeraj Collins MD Active DIFLUCAN 150 MG TABS 1 pill every other day x 2 doses FLUCONAZOLE 00366945776 No Longer Active Sahara Rodriguez MD PhD Active MELATONIN 3 MG CAPS 2 po q hs MELATONIN 06468172120 No Longer Active Sahara Rodriguez MD PhD Active MULTIVITAMINS CAPS Take one by mouth daily MULTIPLE VITAMIN 92695959932 No Longer Active Sahara Rodriguez MD PhD Active BACTRIM DS 800-160 MG TAB 1 tab by mouth twice daily TRIMETHOPRIM-SULFAMETHOXAZOLE 08361897624 No Longer Active Sahara Rodriguez MD PhD Active [facility] PROBIOTIC ORAL CHEW 2 daily po PROBIOTIC PRODUCT 70037154015 No Longer Active Sahara Rodriguez MD PhD Active BACTRIM DS 800-160 MG TABS 1 po BID x 7 days SULFAMETHOXAZOLE-TRIMETHOPRIM 16176114321 No Longer Active Vishal Hui MD Active CHANTIX STARTING MONTH EARNEST 0.5 MG X 11 & 1 MG X 42 TABS 0.5mg daily for 3 days , then 0.5mg BID for 4 days, then 1mg BID VARENICLINE TARTRATE 97179424288 No Longer Active TAMARA Gray Active METOPROLOL TARTRATE 50 MG TAB 1 po bid METOPROLOL TARTRATE 37972168138 Active Vishal Hui MD Active VERAPAMIL HCL CR 120 MG TAB CR 1 po bid VERAPAMIL HCL 90004687599 No Longer Active Vishal Hui MD Active METOPROLOL SUCCINATE 50 MG TB24 1 tablet by mouth daily METOPROLOL SUCCINATE 64968115792 No Longer Active Vishal Hui MD Active TRAMADOL HCL 50 MG TABS 1-2 po TID PRN Pain TRAMADOL HCL 02198999402 Active Luigi Martínez INJECTION MOLDING MACHINE SETTER Active SAPHRIS 10 MG SUBL 1 tab po bid ASENAPINE MALEATE 11634040470 No Longer Active Vishal Hui MD Active LISINOPRIL 20 MG TABS 1 tab po qd LISINOPRIL 85943930983 No Longer Active Vishal Hui MD Active BENADRYL 25 MG CAP 2 po tid prn anxiety DIPHENHYDRAMINE HCL 98564136438 Active Vishal Hui MD Active LATUDA 20 MG TABS Take one by mouth daily LURASIDONE HCL 28643005360 No Longer Active Vishal Hui MD Active TRAZODONE HCL 50 MG TABS 1/2 tab po qd prn for anxiety TRAZODONE HCL 96021077939 No Longer Active Vishal Hui MD Active PIROXICAM 20 MG CAPS 1 cap po qd PRN Pain PIROXICAM 02490922800 Active Vishal Hui MD Active OMEPRAZOLE 20 MG TBEC 1 po q a.m. 30min prior to first food intake OMEPRAZOLE 06602798658 Active Vishal Hui MD Active RANITIDINE HCL 150 MG CAPS 1 twice a day RANITIDINE HCL 07672115391 Active Vishal Hui MD Active LINZESS 290 MCG CAPS Take one by mouth daily LINACLOTIDE 31163299850 No Longer Active Vishal Hui MD Active SAPHRIS 5 MG SUBL 1 tab po qd ASENAPINE MALEATE 67149675552 No Longer Active Vishal Hui MD Active ZALEPLON 10 MG CAPS 1 cap po every other night ZALEPLON 85042181384 No Longer Active Vishal Hui MD Active LYRICA 50 MG CAPS 1 tab po TID PREGABALIN 30847803418 No Longer Active Vishal Hui MD Active LORATADINE 10 MG TABS 1 tab po qd LORATADINE 41911475046 No Longer Active Vishal Hui MD Active VERAPAMIL HCL ER 180 MG CR-TABS 1 tab po bid VERAPAMIL HCL 97212394130 No Longer Active Vishal Hui MD Active MIRALAX POWD 1 capfull once daily POLYETHYLENE GLYCOL 3350 72700315457 No Longer Active Vishal Hui MD Active PREDNISONE 20 MG TABS 1 tab po qd PREDNISONE 92668049438 No Longer Active Renzo Thornton DO Active LEVOFLOXACIN 500 MG TABS 1 tab po qd LEVOFLOXACIN 04562063140 No Longer Active Renzo Thornton DO Active BUSPIRONE HCL 15 MG TABS 1 tab po TID BUSPIRONE HCL 43737258151 No Longer Active Renzo Thornton DO Active BENZTROPINE MESYLATE 1 MG TABS 1 tab po qd BENZTROPINE MESYLATE 23969237024 No Longer Active Renzo Thornton DO Active ATENOLOL 25 MG TABS 1 tab po qd ATENOLOL 67171219350 No Longer Active Renzo Thornton DO Active ESCITALOPRAM OXALATE 20 MG TABS 1 tab po qd ESCITALOPRAM OXALATE 05636658200 No Longer Active Renzo Thornton DO Active ADVAIR DISKUS 250-50 MCG/DOSE AEPB 1 puff BID FLUTICASONE-SALMETEROL 12379920396 No Longer Active Renzo Thornton DO Active PREDNISONE 20 MG TAB 2 tabs daily for 3 days, 1 tab daily for 3 days, 1/2 tab daily for 2 days PREDNISONE 32237034538 No Longer Active Vishal Hui MD Active CEFDINIR 300 MG CAPS by mouth twice a day CEFDINIR 17167708720 No Longer Active Vishal Hui MD Active LANSOPRAZOLE 30 MG CPDR 1 cap po qd LANSOPRAZOLE 41582783535 No Longer Active Vishal Hui MD Active BACLOFEN 20 MG TABS 1 tab po tid BACLOFEN 03039793852 No Longer Active Vishal Hui MD Active ADVAIR DISKUS 250-50 MCG/DOSE AEPB 1 puff BID ADVAIR DISKUS 250-50 MCG/DOSE AEPB FLUTICASONE-SALMETEROL Inactive ESCITALOPRAM OXALATE 20 MG TABS 1 tab po qd ESCITALOPRAM OXALATE 20 MG TABS 838586 ESCITALOPRAM OXALATE Inactive ATENOLOL 25 MG TABS 1 tab po qd ATENOLOL 25 MG TABS 368220 ATENOLOL Inactive BENZTROPINE MESYLATE 1 MG TABS 1 tab po qd BENZTROPINE MESYLATE 1 MG TABS 197336 BENZTROPINE MESYLATE Inactive BUSPIRONE HCL 15 MG TABS 1 tab po TID BUSPIRONE HCL 15 MG TABS 413487 BUSPIRONE HCL Inactive LEVOFLOXACIN 500 MG TABS 1 tab po qd LEVOFLOXACIN 500 MG TABS 394437 LEVOFLOXACIN Inactive PREDNISONE 20 MG TABS 1 tab po qd PREDNISONE 20 MG TABS 423109 PREDNISONE Inactive MIRALAX POWD 1 capfull once daily MIRALAX POWD 731196 POLYETHYLENE GLYCOL 3350 Inactive VERAPAMIL HCL ER 180 MG CR-TABS 1 tab po bid VERAPAMIL HCL ER 180 MG CR-TABS VERAPAMIL HCL Inactive LORATADINE 10 MG TABS 1 tab po qd LORATADINE 10 MG TABS 834122 LORATADINE Inactive LYRICA 50 MG CAPS 1 tab po TID LYRICA 50 MG CAPS PREGABALIN Inactive ZALEPLON 10 MG CAPS 1 cap po every other night ZALEPLON 10 MG CAPS 883000 ZALEPLON Inactive SAPHRIS 5 MG SUBL 1 tab po qd SAPHRIS 5 MG SUBL ASENAPINE MALEATE Inactive TRAZODONE HCL 50 MG TABS 1/2 tab po qd prn for anxiety TRAZODONE HCL 50 MG TABS 251879 TRAZODONE HCL Inactive LATUDA 20 MG TABS Take one by mouth daily LATUDA 20 MG TABS LURASIDONE HCL Inactive LISINOPRIL 20 MG TABS 1 tab po qd LISINOPRIL 20 MG TABS 207023 LISINOPRIL Inactive SAPHRIS 10 MG SUBL 1 [...] twice daily BACTRIM DS 800-160 MG TAB 878608 TRIMETHOPRIM-SULFAMETHOXAZOLE Inactive MULTIVITAMINS CAPS Take one by mouth daily MULTIVITAMINS CAPS MULTIPLE VITAMIN Inactive MELATONIN 3 MG CAPS 2 po q hs MELATONIN 3 MG CAPS 430582 MELATONIN Inactive KEFLEX 500 MG ORAL CAPS 1 cap QID by mouth KEFLEX 500 MG ORAL CAPS 949323 CEPHALEXIN Inactive CLINDAMYCIN HCL 150 MG CAPS 1 four times a day CLINDAMYCIN HCL 150 MG CAPS 131432 CLINDAMYCIN HCL Inactive DIFLUCAN 150 MG TAB 1 tablet by mouth daily DIFLUCAN 150 MG TAB 500609 FLUCONAZOLE Inactive PROZAC 20 MG CAP Take one by mouth daily PROZAC 20 MG CAP 458736 FLUOXETINE HCL Inactive IBUPROFEN 600 MG TAB 1 po TID PRN IBUPROFEN 600 MG TAB 472000 IBUPROFEN Inactive VYVANSE 40 MG CAPS 1 daily, VYVANSE 40 MG CAPS LISDEXAMFETAMINE DIMESYLATE Inactive TRAZODONE HCL 100 MG TAB take 1 at bedtime TRAZODONE HCL 100 MG TAB 098338 TRAZODONE HCL Inactive AMITRIPTYLINE HCL 100 MG TAB one at hs AMITRIPTYLINE HCL 100 MG TAB 678011 AMITRIPTYLINE HCL Inactive AMLODIPINE BESYLATE 5 MG TABS 1 tablet by mouth daily AMLODIPINE BESYLATE 5 MG TABS 424546 AMLODIPINE BESYLATE Inactive LATUDA 80 MG TABS Take one by mouth daily LATUDA 80 MG TABS LURASIDONE HCL Inactive SAPHRIS 5 MG SUBL 1 po bid SAPHRIS 5 MG SUBL ASENAPINE MALEATE Inactive CEFDINIR 300 MG CAPS by mouth twice a day CEFDINIR 300 MG CAPS 785389 CEFDINIR Inactive PREDNISONE 20 MG TAB 2 tabs daily for 3 days, 1 tab daily for 3 days, 1/2 tab daily for 2 days PREDNISONE 20 MG TAB 859884 PREDNISONE Inactive BACTRIM DS 800-160 MG TABS 1 po BID x 7 days BACTRIM DS 800-160 MG TABS 19820521 SULFAMETHOXAZOLE-TRIMETHOPRIM Inactive DIFLUCAN 150 MG TABS 1 pill every other day x 2 doses DIFLUCAN 150 MG TABS 032147 FLUCONAZOLE Inactive BACTRIM DS 800-160 MG TABS [...] Panel - Chemistry sodium, serum 139 mmol/L 015-151 7794/12/03 carbon dioxide, venous blood 28.5 mmol/L 21.0-32.0 [...] 5.5 % 4.3-6.0 cholesterol, serum 159 mg/dL 725-862 2063/12/03 triglyceride, serum, fasting 118 mg/dL 30-200 HDL [...] ... - Chemistry sodium, serum 140 mmol/L 812-692 8170/05/28 potassium, serum 4.2 mmol/L 3.5-5.2 chloride, serum [...] Panel - Chemistry sodium, serum 141 mmol/L 054-154 1258 potassium, serum 4.3 mmol/L 3.5-5.2 chloride, serum 106 mmol/L 98-107 carbon dioxide, venous blood 25.7 mmol/L 21.0-32.0 blood glucose 119 mg/dL 65-110 urea nitrogen, blood 22 mg/dL 7-18 creatinine, serum 0.90 mg/dL 0.60-1.30 alanine aminotransferase (SGPT), serum 28 U/L 12-78 aspartate aminotransferase (SGOT), serum 13 U/L 15-37 calcium, serum 8.5 mg/dL 8.5-10.1 bilirubin, serum, total 0.20 mg/dL 0.00-1.00 sodium, serum 139 mmol/L 727-979 4181/12/22 carbon dioxide, venous blood 26.8 mmol/L 21.0-32.0 [...] Rate - Chemistry sodium, serum 139 mmol/L 691-031 4508/12/11 carbon dioxide, venous blood 25.4 mmol/L 21.0-32.0 [...] 5.5 5.0-8.5 Lab Report: [facility] W/MICRO, AUTO, [facility] [place] - Chemistry protein, total urine random Negative mg/dL Negative RBC, urine, dipstick Negative Negative human chorionic gonadotropin, urine, qualitative (urine test) Negative Negative Lab Report: [facility]AD[facility] W/MICRO, AUTO, [facility] [place] - Urinalysis urobilinogen, urine, semiquantitative (dipstick) 0.2 Normal leukocyte esterase, urine, by dipstick Negative Negative nitrite, urine, semiquantitative Negative Negative glucose, urine, semiquantitative Negative Negative ketones, urine, by test strip Negative Negative bilirubin, urine Negative Negative urine color Yellow Colorless;Lightyellow;Straw;Yellow appearance, urine Clear Clear specific gravity, urine 1.025 1.000-1.030 pH, urine, semiquantitative 7.0 5.0-8.5 Lab Report: Varicella-Zoater Inga IgG,IgM/03662, HEP Be Antibody/556, RUB ... - Serology rubella antibody, serum, IgG 2.88 Encounters Code Encounter Date Provider Facility CPT-13658 Level 4 Est. Patient 09:00:51 [employer] Vishal Hui MD [facility] CPT-92057 Level 3 Est. Patient 11:37:33 [employer] Vishal Hui MD [facility] CPT-32947 Level 3 Est. Patient 08:41:09 [employer] Vishal Hui MD [facility] CPT-35873 Level 4 Est. Patient 10:19:35 [employer] Vishal Hui MD [facility] CPT-77495 Level 3 Est. Patient 13:35:45 CDT Vishal Hui MD [facility] CPT-05285 Level 4 Est. Patient 10:08:37 CDT Vishal Hui MD [facility] CPT-28950 Level 3 Est. Patient 11:22:10 CDT Vishal Hui MD [facility] CPT-75467 Level 3 Est. Patient 11:03:32 CDT Sahara Rodriguez MD [facility] CPT-10462 Level 3 Est. Patient 09:41:35 CDT Vishal Hui MD [facility] CPT-21715 Level 3 Est. Patient 12:00:41 CDT Neeraj Collins MD [facility] CPT-56863 Level 3 Est. Patient 09:16:24 CDT Vishal Hui MD [facility] CPT-38109 Level 4 Est. Patient 13:59:09 CDT Neeraj Collins MD [facility] CPT-08691 Level 3 Est. Patient 15:19:43 CDT Renzo Thornton DO [facility] CPT-55973 Level 3 Est. Patient 18:10:26 CDT Sahara Rodriguez MD [facility] CPT-71696 Level 3 Est. Patient 14:49:50 CDT Vishal Hui MD [facility] CPT-25899 Level 4 Est. Patient 18:41:46 CDT Neeraj Collins MD [facility] CPT-76724 Level 4 Est. Patient 09:18:38 [employer] Vishal Hui MD [facility] CPT-67957 Level 3 Est. Patient 14:43:55 [employer] Vishal Hui MD [facility] CPT-60534 Level 3 Est. Patient 15:26:33 [employer] Sahara Rodriguez MD PhD [facility] CPT-93683 Level 3 Est. Patient 10:32:14 [employer] Vishal Hui MD [facility] CPT-70203 Level 3 Est. Patient 15:12:52 [employer] Vishal Hui MD [facility] CPT-04027 Level 4 Est. Patient 09:19:27 CDT Vishal Hui MD [facility] CPT-67013 Level 3 Est. Patient 15:53:00 CDT Renzo Thornton [facility] CPT-73560 Level 3 Est. Patient 15:50:30 CDT Renzo Thornton [facility] CPT-73259 Level 3 Est. Patient 16:55:24 CDT Vishal Hui MD [facility] Procedures Code Procedure Name Date Entry Date Standard Description CPT-J3420 Vitamin B12 1000mcg (Cyanocobalamin) 16:57:46 CDT 08/14 CPT-00185 Recombivax HB Injection Suspension 5 MCG/0.5ML 08:37:50 [employer] CPT-50483 Immunization Single Admin 08:37:50 [employer] CPT-J3420 Vitamin B12 1000mcg (Cyanocobalamin) 08:32:16 [employer] 03/11 CPT-18105 Abx/Therapy Injection 08:32:16 [employer] CPT-74383 Chest 2V Frontal and Lat 11:46:38 [employer] CPT-24550 Venipuncture Draw Fee 09:12:45 [employer] CPT-J3420 Vitamin B12 1000mcg (Cyanocobalamin) 08:50:15 [employer] 02/08 CPT-67256 Abx/Therapy Injection 08:50:15 [employer] CPT-Cryo Cryotherapy 10:19:35 [employer] CPT-000 Give Appropriate Flu Vaccine 09:22:16 CDT CPT-J3420 Vitamin B12 1000mcg (Cyanocobalamin) 19:08:57 CDT 01/11 CPT-89585 Abx/Therapy Injection 19:08:57 CDT CPT-J3420 Vitamin B12 1000mcg (Cyanocobalamin) 08:19:08 CDT 12/11 CPT-35893 Abx/Therapy Injection 08:19:08 CDT CPT-J3420 Vitamin B12 1000mcg (Cyanocobalamin) 14:48:00 CDT 11/09 CPT-20454 Abx/Therapy Injection 14:47:59 CDT CPT-J3420 Vitamin B12 1000mcg (Cyanocobalamin) 08:34:04 CDT 10/09 CPT-00779 Abx/Therapy Injection 08:34:04 CDT CPT-J3420 Vitamin B12 1000mcg (Cyanocobalamin) 09:18:52 CDT 09/11 CPT-83953 Abx/Therapy Injection 09:18:52 CDT CPT-J3420 Vitamin B12 1000mcg (Cyanocobalamin) 08:35:44 CDT 09/04 CPT-94057 Abx/Therapy Injection 08:35:44 CDT CPT-31946 Immunization Single Admin 11:07:16 CDT CPT-19599 Hepatitis B adult IM 11:07:16 CDT CPT-J3420 Vitamin B12 1000mcg (Cyanocobalamin) 11:00:49 CDT 08/28 CPT-J1040 Depo Medrol 80 mg (Methyl Prednisolone Acetate) 11:00: 49 CDT CPT-69824 Abx/Therapy Injection 11:00:49 CDT CPT-J1040 Depo Medrol 80 mg (Methyl Prednisolone Acetate) 09:16: 23 CDT CPT-J3420 Vitamin B12 1000mcg (Cyanocobalamin) 08:27:05 CDT 08/20 CPT-39783 Abx/Therapy Injection 08:27:05 CDT CPT-21508 Recombivax HB Injection Suspension 5 MCG/0.5ML 10:00:41 CDT CPT-17672 Administration single or combination vaccine inc oral 10 :00:41 CDT CPT-23965 Sono transvag pelvis non OB uterus ovaries cervix 16:36: 57 CDT CPT-98422 LS spine comp w obliq 09:50:55 [employer] CPT-17820 Abd compl w upright 09:50:55 [employer] CPT-J1100 Decadron 4mg (Dexamethasone) 15:51:24 [employer] CPT-J1030 Depo Medrol 40 mg (Methyl Prednisolone Acetate) 15:51: 24 [employer] CPT-94870 Abx/Therapy Injection 15:51:24 [employer] CPT-J1100 Decadron 4mg (Dexamethasone) 15:26:33 [employer] CPT-J1030 Depo Medrol 40 mg (Methyl Prednisolone Acetate) 15:26: 33 [employer] CPT-74611 Sono retroperitoneal complete kidneys and bladder 17:15: 30 CDT CPT-07500 Abd compl w upright 16:09:25 CDT CPT-J1100 Decadron 8mg (Dexamethasone) 17:07:57 CDT CPT-83030 Abx/Therapy Injection 17:07:57 CDT CPT-J1100 Decadron 8mg (Dexamethasone) 16:55:24 CDT CPT-04355 Chest 2V Frontal and Lat 16:32:44 CDT
--- OUTSIDE RECORDS SUMMARY | 2016-11-04 20:43 | XMS REPORT | Clinical Summary ---
Author Author Admin, E Organization [facility] Address Unknown Phone Unavailable Allergies, Adverse Reactions, [...] q6hr PRN Muscle Spasm/Back Pain TIZANIDINE HCL 68170185673 Active Vishal Hui MD Active CLINDAMYCIN HCL 150 MG CAPS 1 four times a day CLINDAMYCIN HCL 56570966251 No Longer Active Neeraj Collins MD Active KEFLEX 500 MG ORAL CAPS 1 cap QID by mouth CEPHALEXIN 22718679209 No Longer Active Neeraj Collins MD Active DIFLUCAN 150 MG TABS 1 pill every other day x 2 doses FLUCONAZOLE 10096423330 No Longer Active Sahara Rodriguez MD PhD Active MELATONIN 3 MG CAPS 2 po q hs MELATONIN 71768753098 No Longer Active Sahara Rodriguez MD PhD Active MULTIVITAMINS CAPS Take one by mouth daily MULTIPLE VITAMIN 31831500424 No Longer Active Sahara Rodriguez MD PhD Active BACTRIM DS 800-160 MG TAB 1 tab by mouth twice daily TRIMETHOPRIM-SULFAMETHOXAZOLE 75392845813 No Longer Active Sahara Rodriguez MD PhD Active [facility] PROBIOTIC ORAL CHEW 2 daily po PROBIOTIC PRODUCT 97720076891 No Longer Active Sahara Rodriguez MD PhD Active IBUPROFEN 600 MG TAB 1 po TID PRN IBUPROFEN 64763818763 Active Luigi Martínez [employer] Active BACTRIM DS 800-160 MG TABS 1 po BID x 7 days SULFAMETHOXAZOLE-TRIMETHOPRIM 51300127884 No Longer Active Vishal Hui MD Active CHANTIX STARTING MONTH EARNEST 0.5 MG X 11 & 1 MG X 42 TABS 0.5mg daily for 3 days , then 0.5mg BID for 4 days, then 1mg BID VARENICLINE TARTRATE 26972873495 No Longer Active TAMARA Gray Active METOPROLOL TARTRATE 50 MG TAB 1 po bid METOPROLOL TARTRATE 31670967892 Active Vishal Hui MD Active TRAZODONE HCL 100 MG TAB take 1 at bedtime TRAZODONE HCL 38725292139 Active Vishal Hui MD Active AMLODIPINE BESYLATE 5 MG TABS 1 tablet by mouth daily AMLODIPINE BESYLATE 25742439046 Active Vishal Hui MD Active VERAPAMIL HCL CR 120 MG TAB CR 1 po bid VERAPAMIL HCL 03786417683 No Longer Active Vishal Hui MD Active METOPROLOL SUCCINATE 50 MG TB24 1 tablet by mouth daily METOPROLOL SUCCINATE 13046113130 No Longer Active Vishal Hui MD Active TRAMADOL HCL 50 MG TABS 1-2 po TID PRN Pain TRAMADOL HCL 55575976526 Active Vishal Hui MD Active SAPHRIS 5 MG SUBL 1 po bid ASENAPINE MALEATE 65113309181 Active Vishal Hui MD Active SAPHRIS 10 MG SUBL 1 tab po bid ASENAPINE MALEATE 97564135064 No Longer Active Vishal Hui MD Active LISINOPRIL 20 MG TABS 1 tab po qd LISINOPRIL 88355599409 No Longer Active Vishal Hui MD Active BENADRYL 25 MG CAP 2 po tid prn anxiety DIPHENHYDRAMINE HCL 75136043410 Active Vishal Hui MD Active LATUDA 80 MG TABS Take one by mouth daily LURASIDONE HCL 33124668556 Active Vishal Hui MD Active LATUDA 20 MG TABS Take one by mouth daily LURASIDONE HCL 05990990114 No Longer Active Vishal Hui MD Active TRAZODONE HCL 50 MG TABS 1/2 tab po qd prn for anxiety TRAZODONE HCL 29359438776 No Longer Active Vishal Hui MD Active PIROXICAM 20 MG CAPS 1 cap po qd PRN Pain PIROXICAM 74440239793 Active Vishal Hui MD Active OMEPRAZOLE 20 MG TBEC 1 po q a.m. 30min prior to first food intake OMEPRAZOLE 78557237446 Active Vishal Hui MD Active RANITIDINE HCL 150 MG CAPS 1 twice a day RANITIDINE HCL 04458118071 Active Vishal Hui MD Active PROZAC 20 MG CAP Take one by mouth daily FLUOXETINE HCL 98347790199 Active Vishal Hui MD Active LINZESS 290 MCG CAPS Take one by mouth daily LINACLOTIDE 68461666721 Active Vishal Hui MD Active SAPHRIS 5 MG SUBL 1 tab po qd ASENAPINE MALEATE 09282238196 No Longer Active Vishal Hui MD Active ZALEPLON 10 MG CAPS 1 cap po every other night ZALEPLON 43122347097 No Longer Active Vishal Hui MD Active LYRICA 50 MG CAPS 1 tab po TID PREGABALIN 70335268355 No Longer Active Vishal Hui MD Active LORATADINE 10 MG TABS 1 tab po qd LORATADINE 23752252509 No Longer Active Vishal Hui MD Active VERAPAMIL HCL ER 180 MG CR-TABS 1 tab po bid VERAPAMIL HCL 67634791983 No Longer Active Vishal Hui MD Active MIRALAX POWD 1 capfull once daily POLYETHYLENE GLYCOL 3350 01459906272 No Longer Active Vishal Hui MD Active PREDNISONE 20 MG TABS 1 tab po qd PREDNISONE 91904383067 No Longer Active Renzo Thornton DO Active LEVOFLOXACIN 500 MG TABS 1 tab po qd LEVOFLOXACIN 05493681334 No Longer Active Renzo Thornton DO Active BUSPIRONE HCL 15 MG TABS 1 tab po TID BUSPIRONE HCL 49199845644 No Longer Active Renzo Thornton DO Active BENZTROPINE MESYLATE 1 MG TABS 1 tab po qd BENZTROPINE MESYLATE 10346434514 No Longer Active Renzo Thornton DO Active ATENOLOL 25 MG TABS 1 tab po qd ATENOLOL 72214640792 No Longer Active Renzo Thornton DO Active ESCITALOPRAM OXALATE 20 MG TABS 1 tab po qd ESCITALOPRAM OXALATE 79154853741 No Longer Active Renzo Thornton DO Active ADVAIR DISKUS 250-50 MCG/DOSE AEPB 1 puff BID FLUTICASONE-SALMETEROL 64388011163 No Longer Active Renzo Thornton DO Active PREDNISONE 20 MG TAB 2 tabs daily for 3 days, 1 tab daily for 3 days, 1/2 tab daily for 2 days PREDNISONE 98605917431 No Longer Active Vishal Hui MD Active CEFDINIR 300 MG CAPS by mouth twice a day CEFDINIR 49523545814 No Longer Active Vishal Hui MD Active LANSOPRAZOLE 30 MG CPDR 1 cap po qd LANSOPRAZOLE 27625502451 No Longer Active Vishal Hui MD Active TOPAMAX 25 MG TABS 1 tab po bid TOPIRAMATE 41891551108 Active Vishal Hui MD Active MINIPRESS 2 MG CAPS 1 cap po at night PRAZOSIN HCL 30793725879 Active Vishal Hui MD Active BACLOFEN 20 MG TABS 1 tab po tid BACLOFEN 99395004002 No Longer Active Vishal Hui MD Active ADVAIR DISKUS 250-50 MCG/DOSE AEPB 1 puff BID ADVAIR DISKUS 250-50 MCG/DOSE AEPB FLUTICASONE-SALMETEROL Inactive ESCITALOPRAM OXALATE 20 MG TABS 1 tab po qd ESCITALOPRAM OXALATE 20 MG TABS 336943 ESCITALOPRAM OXALATE Inactive ATENOLOL 25 MG TABS 1 tab po qd ATENOLOL 25 MG TABS 435634 ATENOLOL Inactive BENZTROPINE MESYLATE 1 MG TABS 1 tab po qd BENZTROPINE MESYLATE 1 MG TABS 120991 BENZTROPINE MESYLATE Inactive BUSPIRONE HCL 15 MG TABS 1 tab po TID BUSPIRONE HCL 15 MG TABS 976434 BUSPIRONE HCL Inactive LEVOFLOXACIN 500 MG TABS 1 tab po qd LEVOFLOXACIN 500 MG TABS 571623 LEVOFLOXACIN Inactive PREDNISONE 20 MG TABS 1 tab po qd PREDNISONE 20 MG TABS 114985 PREDNISONE Inactive MIRALAX POWD 1 capfull once daily MIRALAX POWD 969108 POLYETHYLENE GLYCOL 3350 Inactive VERAPAMIL HCL ER 180 MG CR-TABS 1 tab po bid VERAPAMIL HCL ER 180 MG CR-TABS VERAPAMIL HCL Inactive LORATADINE 10 MG TABS 1 tab po qd LORATADINE 10 MG TABS 596069 LORATADINE Inactive LYRICA 50 MG CAPS 1 tab po TID LYRICA 50 MG CAPS PREGABALIN Inactive ZALEPLON 10 MG CAPS 1 cap po every other night ZALEPLON 10 MG CAPS 875480 ZALEPLON Inactive SAPHRIS 5 MG SUBL 1 tab po qd SAPHRIS 5 MG SUBL ASENAPINE MALEATE Inactive TRAZODONE HCL 50 MG TABS 1/2 tab po qd prn for anxiety TRAZODONE HCL 50 MG TABS 453452 TRAZODONE HCL Inactive LATUDA 20 MG TABS Take one by mouth daily LATUDA 20 MG TABS LURASIDONE HCL Inactive LISINOPRIL 20 MG TABS 1 tab po qd LISINOPRIL 20 MG TABS 747698 LISINOPRIL Inactive SAPHRIS 10 MG SUBL 1 [...] po q hs MELATONIN 3 MG CAPS 190476 MELATONIN Inactive KEFLEX 500 MG ORAL CAPS 1 cap QID by mouth KEFLEX 500 MG ORAL CAPS 060085 CEPHALEXIN Inactive CLINDAMYCIN HCL 150 MG CAPS 1 four times a day CLINDAMYCIN HCL 150 MG CAPS 694260 CLINDAMYCIN HCL Inactive CEFDINIR 300 MG CAPS by mouth twice a day CEFDINIR 300 MG CAPS 030203 CEFDINIR Inactive PREDNISONE 20 MG TAB 2 tabs daily for 3 days, 1 tab daily for 3 days, 1/2 tab daily for 2 days PREDNISONE 20 MG TAB 811813 PREDNISONE Inactive BACTRIM DS 800-160 MG TABS 1 po BID x 7 days BACTRIM DS 800-160 MG TABS SULFAMETHOXAZOLE-TRIMETHOPRIM Inactive DIFLUCAN 150 MG TABS 1 pill every other day x 2 doses DIFLUCAN 150 MG TABS 317266 FLUCONAZOLE Inactive Vital Signs Date Name Value [...] ... - Chemistry sodium, serum 140 mmol/L 621-933 4300/05/28 potassium, serum 4.2 mmol/L 3.5-5.2 chloride, serum [...] Panel - Chemistry sodium, serum 141 mmol/L 005-110 7583 potassium, serum 4.3 mmol/L 3.5-5.2 chloride, serum [...] Panel - Chemistry sodium, serum 139 mmol/L 133-794 1924/12/31 potassium, serum 4.8 mmol/L 3.5-5.2 chloride, serum 106 mmol/L 98-107 carbon dioxide, venous blood 24.3 mmol/L 21.0-32.0 blood glucose 90 mg/dL 65-110 urea nitrogen, blood 16 mg/dL 7-18 creatinine, serum 1.00 mg/dL 0.60-1.30 alanine aminotransferase (SGPT), serum 41 U/L 12-78 aspartate aminotransferase (SGOT), serum 17 U/L 15-37 calcium, serum 8.6 mg/dL 8.5-10.1 bilirubin, serum, total 0.30 mg/dL 0.00-1.00 cholesterol, serum 108 mg/dL 600-186 3791/12/31 triglyceride, serum, fasting 120 mg/dL 30-200 HDL [...] semiquantitative 7.0 5.0-8.5 Lab Report: Varicella-Zoater Inga IgG,IgM/76862, HEP Be Antibody/556, RUB ... - Serology rubella antibody, serum, IgG 2.88 Encounters Code Encounter Date Provider Facility CPT-26579 Level 3 Est. Patient 09:16:24 CDT Vishal Hui MD [facility] CPT-81120 Level 4 Est. Patient 13:59:09 CDT Neeraj Collins MD [facility] CPT-76055 Level 3 Est. Patient 15:19:43 CDT Renzo Thornton [facility] CPT-93805 Level 3 Est. Patient 18:10:26 CDT Sahara Rodriguez MD PhD [facility] CPT-37918 Level 3 Est. Patient 14:49:50 CDT Vishal Hui MD [facility] CPT-78662 Level 4 Est. Patient 18:41:46 CDT Neeraj Collins MD [facility] CPT-49671 Level 4 Est. Patient 09:18:38 ACOUSTICAL ENGINEER Vishal Hui MD [facility] CPT-61764 Level 3 Est. Patient 14:43:55 ACOUSTICAL ENGINEER Vishal Hui MD [facility] CPT-26114 Level 3 Est. Patient 15:26:33 ACOUSTICAL ENGINEER Sahara Rodriguez MD PhD [facility] CPT-67593 Level 3 Est. Patient 10:32:14 ACOUSTICAL ENGINEER Vishal Hui MD [facility] CPT-19321 Level 3 Est. Patient 15:12:52 ACOUSTICAL ENGINEER Vishal Hui MD [facility] CPT-46018 Level 4 Est. Patient 09:19:27 CDT Vishal Hui MD [facility] CPT-55186 Level 3 Est. Patient 15:53:00 CDT Renzo Thornton [facility] CPT-42547 Level 3 Est. Patient 15:50:30 CDT Renzo Thornton [facility] CPT-42569 Level 3 Est. Patient 16:55:24 CDT Vishal Hui MD [facility] Procedures Code Procedure Name Date Entry Date Standard Description CPT-95476 Immunization Single Admin 11:07:16 CDT CPT-43840 Hepatitis B adult IM 11:07:16 CDT CPT-J3420 Vitamin B12 1000mcg (Cyanocobalamin) 11:00:49 CDT 08/28 CPT-J1040 Depo Medrol 80 mg (Methyl Prednisolone Acetate) 11:00: 49 CDT CPT-24620 Abx/Therapy Injection 11:00:49 CDT CPT-J1040 Depo Medrol 80 mg (Methyl Prednisolone Acetate) 09:16: 23 CDT CPT-J3420 Vitamin B12 1000mcg (Cyanocobalamin) 08:27:05 CDT 08/20 CPT-73533 Abx/Therapy Injection 08:27:05 CDT CPT-62960 Recombivax HB Injection Suspension 5 MCG/0.5ML 10:00:41 CDT CPT-63425 Administration single or combination vaccine inc oral 10 :00:41 CDT CPT-59049 Sono transvag pelvis non OB uterus ovaries cervix 16:36: 57 CDT CPT-71640 LS spine comp w obliq 09:50:55 ACOUSTICAL ENGINEER CPT-02558 Abd compl w upright 09:50:55 ACOUSTICAL ENGINEER CPT-J1100 Decadron 4mg (Dexamethasone) 15:51:24 ACOUSTICAL ENGINEER CPT-J1030 Depo Medrol 40 mg (Methyl Prednisolone Acetate) 15:51: 24 ACOUSTICAL ENGINEER CPT-27018 Abx/Therapy Injection 15:51:24 ACOUSTICAL ENGINEER CPT-J1100 Decadron 4mg (Dexamethasone) 15:26:33 ACOUSTICAL ENGINEER CPT-J1030 Depo Medrol 40 mg (Methyl Prednisolone Acetate) 15:26: 33 ACOUSTICAL ENGINEER CPT-07170 Sono retroperitoneal complete kidneys and bladder 17:15: 30 CDT CPT-26349 Abd compl w upright 16:09:25 CDT CPT-J1100 Decadron 8mg (Dexamethasone) 17:07:57 CDT CPT-93004 Abx/Therapy Injection 17:07:57 CDT CPT-J1100 Decadron 8mg (Dexamethasone) 16:55:24 CDT CPT-99354 Chest 2V Frontal and Lat 16:32:44 CDT
--- OUTSIDE RECORDS SUMMARY | 2016-11-04 20:47 | XMS REPORT | Clinical Summary ---
Author Author Admin, [facility] Organization [employer] Address Unknown Phone Unavailable Allergies, Adverse Reactions, [...] sites Morbid obesity 278.01 Active Juliet Kimbrough PULVERIZER MILL OPERATOR Morbid obesity 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 Active Juliet Kimbrough PULVERIZER MILL OPERATOR Dependence on other enabling machines and [...] disease of breast Cigarette smoker 305.1 Active hAmet Carbajal MD Tobacco use disorder Nondisplaced transverse fracture of shaft of left fibula, subsequent encounter for closed fracture with routine healing Resolved Suzan Boo APRN Bronchitis, acute 466.0 Resolved Ahmet Carbajal MD Acute bronchitis Generalized anxiety disorder 300.02 Active Ahmet Carbajal MD Generalized anxiety disorder 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 well 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 exam V72.31 Resolved Suzan Boo [...] Impetigo Furuncle of buttock 680.5 Resolved Suzan oBo APRN Carbuncle and furuncle of buttock Vaginal [...] Boo APRN DYSURIA ICD-788.1 Inactive Suzan Boo PULVERIZER MILL OPERATOR Cellulitis and abscess of breast ICD-611.0 Inactive Ahmet Carbajal MD Nondisplaced transverse fracture of shaft of left fibula, subsequent encounter for closed fracture with routine healing Inactive Suzan Boo PULVERIZER MILL OPERATOR Bronchitis, acute ICD-466.0 Inactive Ahmet Carbajal MD 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 well woman exam ICD-V72.31 Inactive Suzan Boo PULVERIZER MILL OPERATOR Bronchitis, acute with mild bronchospasm ICD-466.0 Inactive Suzan Boo PULVERIZER MILL OPERATOR Tracheitis ICD-464.10 Inactive Suzan Boo APRN Impetigo ICD-684 Inactive Suzan Boo PULVERIZER MILL OPERATOR Furuncle of buttock ICD-680.5 Inactive Suzan [...] % OINT apply twice a day MUPIROCIN 48242516668 Active Suzan Boo APRN Active BACTRIM DS 800-160 MG TABS 1 twice a day SULFAMETHOXAZOLE- TRIMETHOPRIM 89770915162 Active Suzan Boo APRN Active [id number] 50-325-40 MG TABS 1 to 2 four times a day as needed for headache [id number] 17812281120 Active Suzan Boo APRN Active METOCLOPRAMIDE HCL 10 MG TABS 1 two times as needed for nausea and headaches METOCLOPRAMIDE HCL 81734208224 Active Meena Ortiz MA Active NYSTATIN 752677 UNIT/GM CREA apply three times a day to yeast rash NYSTATIN 83058239619 Active Suzan Boo APRN Active AMITIZA 24 MCG ORAL CAPS one capsule twice daily LUBIPROSTONE 38998358029 Active Suzan Boo APRN Active MIRALAX ORAL POWD 17GMS DAILY IN WATER POLYETHYLENE GLYCOL 3350 64700321134 No Longer Active Suzan Boo APRN Active LACTULOSE 10 GM/15ML ORAL SOLN 30mL oral BID for IBS-C LACTULOSE 57082577400 No Longer Active Suzan Boo APRN Active BACTRIM DS 800-160 MG TAB Take one (1) tablet by mouth twice a day for 5 days TRIMETHOPRIM-SULFAMETHOXAZOLE 55728211557 No Longer Active Suzan Boo APRN Active MUPIROCIN 2 % OINT apply twice a day MUPIROCIN 19682657142 No Longer Active Suzan Boo APRN Active BACTRIM DS 800-160 MG TABS 1 twice a day SULFAMETHOXAZOLE-TRIMETHOPRIM 66148843496 No Longer Active Suzan Boo APRN Active DIFLUCAN 150 MG TABS 1 by mouth for yeast FLUCONAZOLE 59342671890 No Longer Active Suzan Boo APRN Active LINZESS 290 MCG ORAL CAPS 1 tab 30 min prior to first meal each day. LINACLOTIDE 38993824764 No Longer Active Sheila Calderon LPN Active AMITIZA 8 MCG ORAL CAPS 1 tab BID LUBIPROSTONE 33645603297 No Longer Active Lynda Xiao WASTE MANAGEMENT RECYCLING TECHNICIAN Active TESSALON PERLES 100 MG CAPS 1 three times a day as needed for cough BENZONATATE 23215591755 No Longer Active Suzan Boo APRN Active BACTRIM DS 800-160 MG TABS 1 twice a day SULFAMETHOXAZOLE-TRIMETHOPRIM 45391278167 No Longer Active Suzan Boo APRN Active DIFLUCAN 150 MG TABS 1 by mouth for yeast FLUCONAZOLE 14464814660 No Longer Active Suzan Boo APRN Active EQ NICOTINE 21 MG/24HR TRANS PT24 Apply daily to stop smoking NICOTINE 34911469518 No Longer Active Suzan Boo APRN Active PREDNISONE 10 MG TABS 2 daily for 5 days then 1 daily for 5 days PREDNISONE 46317228485 No Longer Active Suzan Boo APRN Active LEVAQUIN 500 MG TABS 1 daily for infection LEVOFLOXACIN 44430893117 No Longer Active Suzan Boo APRN Active TROPICAMIDE 0.5 % OPHTH SOLN 1 drop PRN eye spasms TROPICAMIDE 61275841037 No Longer Active Suzan Boo APRN Active PREDNISONE 20 MG TAB 1 tablet daily x 4 days PREDNISONE 20395932050 No Longer Active Suzan Boo APRN Active ACETAMINOPHEN-CODEINE 120-12 MG/5ML SOLN 5 ml by mouth every 4-6 hours if needed for cough ACETAMINOPHEN-CODEINE 83770595284 No Longer Active Suzan Boo APRN Active KEFLEX 500 MG CAP 1 po qid CEPHALEXIN 91765912553 No Longer Active Suzan Boo APRN Active FLOVENT HFA 110 MCG/ACT AERO 2 puffs inhaled b.i.d. FLUTICASONE PROPIONATE HFA 69615152589 Active Renzo Barajas Norberto FONSECA Active RISPERDAL 4 MG ORAL TABS 1 tab at bedtime RISPERIDONE 57373005873 Active Samantha Rothman RMA Active ZOFRAN 4 MG TABS 1 po q6hr PRN Nausea ONDANSETRON HCL No Longer Active Suzan Boo APRN Active FLUTICASONE PROPIONATE 50 MCG/ACT SUSP 2 sprays each nostril daily before bed. FLUTICASONE PROPIONATE 37003843589 No Longer Active Suzan Boo APRN Active ASPIRIN 325 MG ORAL TABS 1 tab q.d ASPIRIN 04463251909 No Longer Active Suzan Boo APRN Active HALOPERIDOL 10 MG ORAL TABS 1 tab q.d HALOPERIDOL 21691807708 No Longer Active Suzan Boo APRN Active GUAIFENESIN-CODEINE 100-10 MG/5ML SYRP 5ml every 4 to 6 hours as needed for cough GUAIFENESIN-CODEINE 64591695064 No Longer Active Suzan Boo APRN Active ZITHROMAX Z-EARNEST 250 MG TABS 2 today and then 1 daily for 4 days AZITHROMYCIN 27951612622 No Longer Active Suzan Boo APRN Active CLONAZEPAM 1 MG ORAL TABS 1 twice a day and an additional 1 tablet every other day as needed for pseudoseizures or anxiety CLONAZEPAM 42943410322 Active Suzan Boo APRN Active HYDROCODONE-ACETAMINOPHEN 5-325 MG ORAL TABS 1 tab two times a day HYDROCODONE-ACETAMINOPHEN 19430427516 No Longer Active Ahmet Carbajal MD Active LAMICTAL 100 MG ORAL TABS 1 tab 2 times qd. LAMOTRIGINE 72142264124 Active Ahmet Carbajal MD Active PREDNISONE 20 MG TABS 2 daily for 5 days then 1 daily for 5 days PREDNISONE 79037366769 No Longer Active Ahmet Carbajal MD Active FLUTICASONE PROPIONATE 50 MCG/ACT SUSP 1 to 2 sprays each nostril daily for allergies FLUTICASONE PROPIONATE 07199967641 Active Tila Nicolas Active BENADRYL 25 MG CAP 4 po at bedtime for insomnia DIPHENHYDRAMINE HCL 75066444751 No Longer Active Ahmet Carbajal MD Active ADVAIR DISKUS 250-50 MCG/DOSE INH AEPB 1 puff twice a day for asthma FLUTICASONE-SALMETEROL 41639749864 No Longer Active Ahmet Carbajal MD Active KLONOPIN 1 MG ORAL TABS 1 tab po TID CLONAZEPAM 47369161336 No Longer Active Ahmet Carbajal MD Active ABILIFY MAINTENA 400 MG IM SUSR 400mg injection every 26 days ARIPIPRAZOLE 31616447457 No Longer Active Ahmet Carbajal MD Active TRAMADOL HCL 50 MG TABS 1/2-1 tab TID PRN TRAMADOL HCL 47355773827 No Longer Active Ahmet Carbajal MD Active BACTRIM DS 800-160 MG TABS 1 twice a day SULFAMETHOXAZOLE- TRIMETHOPRIM 54268920721 No Longer Active Ahmet Carbajal MD Active PROAIR HFA 108 (90 BASE) MCG/ACT AERS 2 puffs four times a day as needed 2015 ALBUTEROL SULFATE 28548156386 Active Honey Hinton PULVERIZER MILL OPERATOR Active MONISTAT 7 COMBO PACK WOODROW 100 & 2 MG-% (9GM) VAG KIT 1 applicatorful per vagina q pm x 7 MICONAZOLE NITRATE 05482794844 No Longer Active Ahmet Carbajal MD Active FLAGYL 500 MG TAB 1 tablet by mouth bid METRONIDAZOLE 09260982486 No Longer Active Ahmet Carbajal MD Active OXYCODONE HCL ER 10 MG ORAL T12A 1/2 tab by mouth every 4 hours prn OXYCODONE HCL 47593272612 No Longer Active Ahmet Carbajal MD Active METHYLPREDNISOLONE 4 MG ORAL TABS po daily METHYLPREDNISOLONE 76087252978 No Longer Active Ahmet Carbajal MD Active LEVOFLOXACIN 500 MG ORAL TABS po daily LEVOFLOXACIN 89925865300 No Longer Active Ahmet Carbajal MD Active VIIBRYD 10 MG ORAL TABS Take 1 tablet once a day VILAZODONE HCL 44743280824 No Longer Active Ahmet Carbajal MD Active TOPAMAX 50 MG ORAL TABS 1 tab twice daily TOPIRAMATE 21788969361 No Longer Active Ahmet Carbajal MD Active DICLOFENAC SODIUM 50 MG TBEC 1 tablet by mouth four times daily PRN Pain 2015 DICLOFENAC SODIUM 83969820332 No Longer Active Ahmet Carbajal MD Active ADZENYS XR-ODT 6.3 MG ORAL TBED 1 tab po daily for ADHD AMPHETAMINE 65860637467 No Longer Active Ahmet Carbajal MD Active CHANTIX 1 MG TABS 1 twice a day to help quit smoking VARENICLINE TARTRATE 83564246535 No Longer Active Dipika Burgos MD Active CHANTIX STARTING MONTH EARNEST 0.5 MG X 11 & 1 MG X 42 TABS take as directed 2015 VARENICLINE TARTRATE 10231119893 No Longer Active Dipika Burgos MD Active TESSALON PERLES 100 MG CAP 1 to 2 tablets by mouth 3 times daily as needed for cough BENZONATATE 66666970865 No Longer Active Luigi Martínez APRN Active IMITREX 50 MG ORAL TABS 0.5 po x 1 PRN Headache. May repeat dose x 1 in 2 hours if needed SUMATRIPTAN SUCCINATE 98867307240 Active TAMARA Casey Active HYDROCODONE-ACETAMINOPHEN 5-325 MG TABS 1 to 2 four times a day as needed for pain use until can be seen by specialist HYDROCODONE- ACETAMINOPHEN 66580087590 No Longer Active Vishal Hui MD Active PROAIR HFA 108 (90 BASE) MCG/ACT AERS 2 puffs four times a day as needed 2015 ALBUTEROL SULFATE 96143317906 No Longer Active Vishal Hui MD Active PREDNISONE 20 MG TABS 2 daily for 5 days then 1 daily for 5 days PREDNISONE 59291307427 No Longer Active Vishal Hui MD Active ZITHROMAX Z-EARNEST 250 MG TABS 2 today and then 1 daily for 4 days AZITHROMYCIN 01288456358 No Longer Active Vishal Hui MD Active DICLOFENAC POTASSIUM TABS Take 1 tablet twice a day (pt. is not sure of the dose.) DICLOFENAC POTASSIUM TABS 35198528618 No Longer Active Vishal Hui MD Active VERAPAMIL HCL ER 120 MG ORAL CR-TABS Take 1 tablet by mouth twice a day. VERAPAMIL HCL 99763876602 Active Vishal Hui MD Active FLAGYL 500 MG TAB 1 tablet by mouth bid METRONIDAZOLE 00339425132 No Longer Active Vishal Hui MD Active VALIUM 5 MG TAB Take 1-2 tablets daily DIAZEPAM 38439147311 No Longer Active Fabiola Johnson APRN Active METOPROLOL TARTRATE 25 MG ORAL TABS 1/2 tablet twice daily for heart rate and blood pressure METOPROLOL TARTRATE 99717751993 No Longer Active Fabiola Johnson APRN Active MIRALAX PACK 1 po qd PRN Constipation POLYETHYLENE GLYCOL 3350 77918419799 No Longer Active Ahmet Carbajal MD Active MINIPRESS 2 MG CAPS 4 cap po at night PRAZOSIN HCL 41711122837 No Longer Active Ahmet Carbajal MD Active PIROXICAM 20 MG CAPS 1 cap po qd PRN Pain PIROXICAM 58596115630 No Longer Active Ahmet Carbajal MD Active TRAMADOL HCL 50 MG TABS 1-2 po TID PRN Pain TRAMADOL HCL 11882546734 No Longer Active Ahmet Carbajal MD Active METOPROLOL TARTRATE 50 MG TAB 1 po bid METOPROLOL TARTRATE 82975001293 No Longer Active Ahmet Carbajal MD Active ABILIFY 15 MG ORAL TABS 1 tab daily ARIPIPRAZOLE 98378624627 No Longer Active Ahmet Carbajal MD Active PROZAC 20 MG ORAL CAPS 1 tab daily FLUOXETINE HCL 08656677297 No Longer Active Ahmet Carbajal MD Active AMBIEN 5 MG ORAL TABS 1 tab at bedtime ZOLPIDEM TARTRATE 62067035560 No Longer Active Ahmet Carbajal MD Active PREDNISONE 20 MG TAB 2 tabs daily for 4 days, 1 tab daily for 4 days, 1/2 tab daily for 4 days PREDNISONE 91350368505 No Longer Active Ahmet Carbajal MD Active KEFLEX 500 MG CAP 1 po TID x 10 days CEPHALEXIN 57065230529 No Longer Active Vishal Hui MD Active SAPHRIS 5 MG SUBL 1 po bid ASENAPINE MALEATE 03766776851 No Longer Active Jillina Frazell PULVERIZER MILL OPERATOR Active LATUDA 80 MG TABS Take one by mouth daily LURASIDONE HCL 80205663118 No Longer Active Jillina Frazell PULVERIZER MILL OPERATOR Active AMLODIPINE BESYLATE 5 MG TABS 1 tablet by mouth daily AMLODIPINE BESYLATE 70407080188 No Longer Active Jillina Frazell PULVERIZER MILL OPERATOR Active AMITRIPTYLINE HCL 100 MG TAB one at hs AMITRIPTYLINE HCL 97182410717 No Longer Active Vishal Hui MD Active TRAZODONE HCL 100 MG TAB take 1 at bedtime TRAZODONE HCL 27703729304 No Longer Active Vishal Hui MD Active VYVANSE 40 MG CAPS 1 daily, LISDEXAMFETAMINE DIMESYLATE 49770030060 No Longer Active Vishal Hui MD Active IBUPROFEN 600 MG TAB 1 po TID PRN IBUPROFEN 13649050604 No Longer Active Vishal Hui MD Active PROZAC 20 MG CAP Take one by mouth daily FLUOXETINE HCL 02316625965 No Longer Active Vishal Hui MD Active BACTRIM DS 800-160 MG TABS 1 pill by mouth twice daily SULFAMETHOXAZOLE-TRIMETHOPRIM 19647890319 No Longer Active Sahara Rodriguez MD PhD Active DIFLUCAN 150 MG TAB 1 tablet by mouth daily FLUCONAZOLE 35496022079 No Longer Active Vishal Hui MD Active TIZANIDINE HCL 4 MG TABS 1 po q6hr PRN Muscle Spasm/Back Pain TIZANIDINE HCL 86106452256 Active TAMARA Casey Active CLINDAMYCIN HCL 150 MG CAPS 1 four times a day CLINDAMYCIN HCL 66251447974 No Longer Active Neeraj Collins MD Active KEFLEX 500 MG ORAL CAPS 1 cap QID by mouth CEPHALEXIN 80854619950 No Longer Active Neeraj Collins MD Active DIFLUCAN 150 MG TABS 1 pill every other day x 2 doses FLUCONAZOLE 06309484580 No Longer Active Sahara Rodriguez MD PhD Active MELATONIN 3 MG CAPS 2 po q hs MELATONIN 65402871312 No Longer Active Sahara Rodriguez MD PhD Active MULTIVITAMINS CAPS Take one by mouth daily MULTIPLE VITAMIN 88870532092 No Longer Active Sahara Rodriguez MD PhD Active BACTRIM DS 800-160 MG TAB 1 tab by mouth twice daily TRIMETHOPRIM-SULFAMETHOXAZOLE 79138961726 No Longer Active Sahara Rodriguez MD PhD Active [facility] PROBIOTIC ORAL CHEW 2 daily po PROBIOTIC PRODUCT 84817816844 No Longer Active Sahara Rodriguez MD PhD Active BACTRIM DS 800-160 MG TABS 1 po BID x 7 days SULFAMETHOXAZOLE-TRIMETHOPRIM 61687900923 No Longer Active Vishal Hui MD Active CHANTIX STARTING MONTH EARNEST 0.5 MG X 11 & 1 MG X 42 TABS 0.5mg daily for 3 days , then 0.5mg BID for 4 days, then 1mg BID VARENICLINE TARTRATE 27754285329 No Longer Active Lisette Scarrow, RMA Active VERAPAMIL HCL CR 120 MG TAB CR 1 po bid VERAPAMIL HCL 86400817507 No Longer Active Vishal Hui MD Active METOPROLOL SUCCINATE 50 MG TB24 1 tablet by mouth daily METOPROLOL SUCCINATE 23007022805 No Longer Active Vishal Hui MD Active SAPHRIS 10 MG SUBL 1 tab po bid ASENAPINE MALEATE 09278348151 No Longer Active Vishal Hui MD Active LISINOPRIL 20 MG TABS 1 tab po qd LISINOPRIL 78526303669 No Longer Active Vishal Hui MD Active LATUDA 20 MG TABS Take one by mouth daily LURASIDONE HCL 17504006089 No Longer Active Vishal Hui MD Active TRAZODONE HCL 50 MG TABS 1/2 tab po qd prn for anxiety TRAZODONE HCL 86235067040 No Longer Active Vishal Hui MD Active OMEPRAZOLE 20 MG TBEC 1 po q a.m. 30min prior to first food intake OMEPRAZOLE 17342958804 Active TAMARA Casey Active RANITIDINE HCL 150 MG CAPS 1 twice a day RANITIDINE HCL 47446219347 Active Lynda Xiao LPN Active LINZESS 290 MCG CAPS Take one by mouth daily LINACLOTIDE 79335330062 No Longer Active Vishal Hui MD Active SAPHRIS 5 MG SUBL 1 tab po qd ASENAPINE MALEATE 61822573937 No Longer Active Vishal Hui MD Active ZALEPLON 10 MG CAPS 1 cap po every other night ZALEPLON 23884476357 No Longer Active Vishal Hui MD Active LYRICA 50 MG CAPS 1 tab po TID PREGABALIN 58949319195 No Longer Active Vishal Hui MD Active LORATADINE 10 MG TABS 1 tab po qd LORATADINE 64242140682 No Longer Active Vishal Hui MD Active VERAPAMIL HCL ER 180 MG CR-TABS 1 tab po bid VERAPAMIL HCL 77774591424 No Longer Active Vishal Hui MD Active MIRALAX POWD 1 capfull once daily POLYETHYLENE GLYCOL 3350 29998392976 No Longer Active Vishal Hui MD Active PREDNISONE 20 MG TABS 1 tab po qd PREDNISONE 14916328106 No Longer Active Renzo Thornton DO Active LEVOFLOXACIN 500 MG TABS 1 tab po qd LEVOFLOXACIN 49681836416 No Longer Active Renzo Thornton DO Active BUSPIRONE HCL 15 MG TABS 1 tab po TID BUSPIRONE HCL 77087557158 No Longer Active Renzo Thornton DO Active BENZTROPINE MESYLATE 1 MG TABS 1 tab po qd BENZTROPINE MESYLATE 98106988935 No Longer Active Renzo Thornton DO Active ATENOLOL 25 MG TABS 1 tab po qd ATENOLOL 47556213100 No Longer Active Renzo Thornton DO Active ESCITALOPRAM OXALATE 20 MG TABS 1 tab po qd ESCITALOPRAM OXALATE 58136312726 No Longer Active Renzo Thornton DO Active ADVAIR DISKUS 250-50 MCG/DOSE AEPB 1 puff BID FLUTICASONE-SALMETEROL 27072409928 No Longer Active Renzo Thornton DO Active PREDNISONE 20 MG TAB 2 tabs daily for 3 days, 1 tab daily for 3 days, 1/2 tab daily for 2 days PREDNISONE 79395105641 No Longer Active Vishal Hui MD Active CEFDINIR 300 MG CAPS by mouth twice a day CEFDINIR 71716071875 No Longer Active Vishal Hui MD Active LANSOPRAZOLE 30 MG CPDR 1 cap po qd LANSOPRAZOLE 81708174675 No Longer Active Vishal Hui MD Active BACLOFEN 20 MG TABS 1 tab po tid BACLOFEN 03393167486 No Longer Active Vishal Hui MD Active ADVAIR DISKUS 250-50 MCG/DOSE AEPB 1 puff BID ADVAIR DISKUS 250-50 MCG/DOSE AEPB FLUTICASONE-SALMETEROL Inactive ESCITALOPRAM OXALATE 20 MG TABS 1 tab po qd ESCITALOPRAM OXALATE 20 MG TABS 070948 ESCITALOPRAM OXALATE Inactive ATENOLOL 25 MG TABS 1 tab po qd ATENOLOL 25 MG TABS 085637 ATENOLOL Inactive BENZTROPINE MESYLATE 1 MG TABS 1 tab po qd BENZTROPINE MESYLATE 1 MG TABS 177152 BENZTROPINE MESYLATE Inactive BUSPIRONE HCL 15 MG TABS 1 tab po TID BUSPIRONE HCL 15 MG TABS 755801 BUSPIRONE HCL Inactive LEVOFLOXACIN 500 MG TABS 1 tab po qd LEVOFLOXACIN 500 MG TABS 353322 LEVOFLOXACIN Inactive PREDNISONE 20 MG TABS 1 tab po qd PREDNISONE 20 MG TABS 181167 PREDNISONE Inactive MIRALAX POWD 1 capfull once daily MIRALAX POWD 150323 POLYETHYLENE GLYCOL 3350 Inactive VERAPAMIL HCL ER 180 MG CR-TABS 1 tab po bid VERAPAMIL HCL ER 180 MG CR-TABS VERAPAMIL HCL Inactive LORATADINE 10 MG TABS 1 tab po qd LORATADINE 10 MG TABS 039123 LORATADINE Inactive LYRICA 50 MG CAPS 1 tab po TID LYRICA 50 MG CAPS PREGABALIN Inactive ZALEPLON 10 MG CAPS 1 cap po every other night ZALEPLON 10 MG CAPS 782596 ZALEPLON Inactive SAPHRIS 5 MG SUBL 1 tab po qd SAPHRIS 5 MG SUBL ASENAPINE MALEATE Inactive TRAZODONE HCL 50 MG TABS 1/2 tab po qd prn for anxiety TRAZODONE HCL 50 MG TABS 997880 TRAZODONE HCL Inactive LATUDA 20 MG TABS Take one by mouth daily LATUDA 20 MG TABS LURASIDONE HCL Inactive LISINOPRIL 20 MG TABS 1 tab po qd LISINOPRIL 20 MG TABS 867503 LISINOPRIL Inactive SAPHRIS 10 MG SUBL 1 [...] twice daily BACTRIM DS 800-160 MG TAB 672585 TRIMETHOPRIM-SULFAMETHOXAZOLE Inactive MULTIVITAMINS CAPS Take one by mouth daily MULTIVITAMINS CAPS MULTIPLE VITAMIN Inactive MELATONIN 3 MG CAPS 2 po q hs MELATONIN 3 MG CAPS 092455 MELATONIN Inactive KEFLEX 500 MG ORAL CAPS 1 cap QID by mouth KEFLEX 500 MG ORAL CAPS 045398 CEPHALEXIN Inactive CLINDAMYCIN HCL 150 MG CAPS 1 four times a day CLINDAMYCIN HCL 150 MG CAPS 19740326 CLINDAMYCIN HCL Inactive DIFLUCAN 150 MG TAB 1 tablet by mouth daily DIFLUCAN 150 MG TAB 060189 FLUCONAZOLE Inactive PROZAC 20 MG CAP Take one by mouth daily PROZAC 20 MG CAP 440871 FLUOXETINE HCL Inactive IBUPROFEN 600 MG TAB 1 po TID PRN IBUPROFEN 600 MG TAB 642339 IBUPROFEN Inactive VYVANSE 40 MG CAPS 1 daily, VYVANSE 40 MG CAPS LISDEXAMFETAMINE DIMESYLATE Inactive TRAZODONE HCL 100 MG TAB take 1 at bedtime TRAZODONE HCL 100 MG TAB 836643 TRAZODONE HCL Inactive AMITRIPTYLINE HCL 100 MG TAB one at hs AMITRIPTYLINE HCL 100 MG TAB 719369 AMITRIPTYLINE HCL Inactive AMLODIPINE BESYLATE 5 MG TABS 1 tablet by mouth daily AMLODIPINE BESYLATE 5 MG TABS 231878 AMLODIPINE BESYLATE Inactive LATUDA 80 MG TABS Take one by mouth daily LATUDA 80 MG TABS LURASIDONE HCL Inactive SAPHRIS 5 MG SUBL 1 po bid SAPHRIS 5 MG SUBL ASENAPINE MALEATE Inactive PREDNISONE 20 MG TAB 2 tabs daily for 4 days, 1 tab daily for 4 days, 1/2 tab daily for 4 days PREDNISONE 20 MG TAB 644285 PREDNISONE Inactive AMBIEN 5 MG ORAL TABS 1 tab at bedtime AMBIEN 5 MG ORAL TABS 598098 ZOLPIDEM TARTRATE Inactive PROZAC 20 MG ORAL CAPS 1 tab daily PROZAC 20 MG ORAL CAPS 310731 FLUOXETINE HCL Inactive ABILIFY 15 MG ORAL TABS 1 tab daily ABILIFY 15 MG ORAL TABS 526883 ARIPIPRAZOLE Inactive METOPROLOL TARTRATE 50 MG TAB 1 po bid METOPROLOL TARTRATE 50 MG TAB 827456 METOPROLOL TARTRATE Inactive TRAMADOL HCL 50 MG TABS 1-2 po TID PRN Pain TRAMADOL HCL 50 MG TABS 153176 TRAMADOL HCL Inactive PIROXICAM 20 MG CAPS 1 cap po qd PRN Pain PIROXICAM 20 MG CAPS 019068 PIROXICAM Inactive MINIPRESS 2 MG CAPS 4 cap po at night MINIPRESS 2 MG CAPS 185540 PRAZOSIN HCL Inactive MIRALAX PACK 1 po qd PRN Constipation MIRALAX PACK 392186 POLYETHYLENE GLYCOL 3350 Inactive METOPROLOL TARTRATE 25 MG ORAL TABS 1/2 tablet twice daily for heart rate and blood pressure METOPROLOL TARTRATE 25 MG ORAL TABS 912563 METOPROLOL TARTRATE Inactive VALIUM 5 MG TAB Take 1-2 tablets daily VALIUM 5 MG TAB 753073 DIAZEPAM Inactive FLAGYL 500 MG TAB 1 tablet by mouth bid FLAGYL 500 MG TAB 483725 METRONIDAZOLE Inactive DICLOFENAC POTASSIUM TABS Take 1 tablet twice a day (pt. is not sure of the dose.) DICLOFENAC POTASSIUM TABS DICLOFENAC POTASSIUM TABS Inactive ZITHROMAX Z-EARNEST 250 MG TABS 2 today and then 1 daily for 4 days ZITHROMAX Z-EARNEST 250 MG TABS 2465625 AZITHROMYCIN Inactive PREDNISONE 20 MG TABS 2 daily for 5 days then 1 daily for 5 days PREDNISONE 20 MG TABS 799920 PREDNISONE Inactive PROAIR HFA 108 (90 BASE) MCG/ACT AERS 2 puffs four times a day as needed 2015 PROAIR HFA 108 (90 BASE) MCG/ACT AERS ALBUTEROL SULFATE Inactive HYDROCODONE-ACETAMINOPHEN 5-325 MG TABS 1 to 2 four times a day as needed for pain use until can be seen by specialist HYDROCODONE- ACETAMINOPHEN 5-325 MG TABS 268522 HYDROCODONE-ACETAMINOPHEN Inactive TESSALON PERLES 100 MG CAP 1 to 2 tablets by mouth 3 times daily as needed for cough TESSALON PERLES 100 MG CAP 387698 BENZONATATE Inactive CHANTIX STARTING MONTH EARNEST 0.5 [...] Pain 2015 DICLOFENAC SODIUM 50 MG TBEC 352789 DICLOFENAC SODIUM Inactive TOPAMAX 50 MG ORAL TABS 1 tab twice daily TOPAMAX 50 MG ORAL TABS 325924 TOPIRAMATE Inactive VIIBRYD 10 MG ORAL TABS Take 1 tablet once a day VIIBRYD 10 MG ORAL TABS VILAZODONE HCL Inactive LEVOFLOXACIN 500 MG ORAL TABS po daily LEVOFLOXACIN 500 MG ORAL TABS 967569 LEVOFLOXACIN Inactive METHYLPREDNISOLONE 4 MG ORAL TABS po daily METHYLPREDNISOLONE 4 MG ORAL TABS 074059 METHYLPREDNISOLONE Inactive OXYCODONE HCL ER 10 MG ORAL T12A 1/2 tab by mouth every 4 hours prn OXYCODONE HCL ER 10 MG ORAL T12A OXYCODONE HCL Inactive FLAGYL 500 MG TAB 1 tablet by mouth bid FLAGYL 500 MG TAB 847788 METRONIDAZOLE Inactive MONISTAT 7 COMBO PACK WOODROW 100 & 2 MG-% (9GM) VAG KIT 1 applicatorful per vagina q pm x 7 MONISTAT 7 COMBO PACK WOODROW 100 & 2 MG-% (9GM) VAG KIT MICONAZOLE NITRATE Inactive BACTRIM DS 800-160 MG TABS 1 twice a day BACTRIM DS 800-160 MG TABS 121768 SULFAMETHOXAZOLE-TRIMETHOPRIM Inactive TRAMADOL HCL 50 MG TABS 1/2-1 tab TID PRN TRAMADOL HCL 50 MG TABS 887725 TRAMADOL HCL Inactive ABILIFY MAINTENA 400 MG IM SUSR 400mg injection every 26 days ABILIFY MAINTENA 400 MG IM SUSR ARIPIPRAZOLE Inactive KLONOPIN 1 MG ORAL TABS 1 tab po TID KLONOPIN 1 MG ORAL TABS 252764 CLONAZEPAM Inactive ADVAIR DISKUS 250-50 MCG/DOSE INH AEPB 1 puff twice a day for asthma ADVAIR DISKUS 250-50 MCG/DOSE INH AEPB FLUTICASONE- SALMETEROL Inactive BENADRYL 25 MG CAP 4 po at bedtime for insomnia BENADRYL 25 MG CAP DIPHENHYDRAMINE HCL Inactive PREDNISONE 20 MG TABS 2 daily for 5 days then 1 daily for 5 days PREDNISONE 20 MG TABS 904208 PREDNISONE Inactive HYDROCODONE-ACETAMINOPHEN 5-325 MG ORAL TABS 1 tab two times a day HYDROCODONE-ACETAMINOPHEN 5-325 MG ORAL TABS 139985 HYDROCODONE-ACETAMINOPHEN Inactive ZITHROMAX Z-EARNEST 250 MG TABS 2 today and then 1 daily for 4 days ZITHROMAX Z-EARNEST 250 MG TABS 2758236 AZITHROMYCIN Inactive GUAIFENESIN-CODEINE 100-10 MG/5ML SYRP 5ml every 4 to 6 hours as needed for cough GUAIFENESIN-CODEINE 100-10 MG/5ML SYRP 140033 GUAIFENESIN-CODEINE Inactive HALOPERIDOL 10 MG ORAL TABS 1 tab q.d HALOPERIDOL 10 MG ORAL TABS [id number] HALOPERIDOL Inactive ASPIRIN 325 MG ORAL TABS 1 tab q.d ASPIRIN 325 MG ORAL TABS [id number] ASPIRIN Inactive FLUTICASONE PROPIONATE 50 MCG/ACT SUSP 2 sprays each nostril daily before bed. FLUTICASONE PROPIONATE 50 MCG/ACT SUSP [id number] FLUTICASONE PROPIONATE Inactive ZOFRAN 4 MG TABS 1 po q6hr PRN Nausea ZOFRAN 4 MG TABS [id number] ONDANSETRON HCL Inactive KEFLEX 500 MG CAP 1 po qid KEFLEX 500 MG CAP [id number] CEPHALEXIN Inactive ACETAMINOPHEN-CODEINE 120-12 MG/5ML SOLN 5 ml by mouth every 4-6 hours if needed for cough ACETAMINOPHEN-CODEINE 120-12 MG/5ML SOLN 810011 ACETAMINOPHEN-CODEINE Inactive PREDNISONE 20 MG TAB 1 tablet daily x 4 days PREDNISONE 20 MG TAB 399806 PREDNISONE Inactive TROPICAMIDE 0.5 % OPHTH SOLN 1 drop PRN eye spasms TROPICAMIDE 0.5 % OPHTH SOLN 059797 TROPICAMIDE Inactive LEVAQUIN 500 MG TABS 1 daily for infection LEVAQUIN 500 MG TABS 728346 LEVOFLOXACIN Inactive PREDNISONE 10 MG TABS 2 daily for 5 days then 1 daily for 5 days PREDNISONE 10 MG TABS 136413 PREDNISONE Inactive EQ NICOTINE 21 MG/24HR TRANS [...] for cough TESSALON PERLES 100 MG CAPS 336374 BENZONATATE Inactive AMITIZA 8 MCG ORAL CAPS [...] twice a day MUPIROCIN 2 % OINT 799702 MUPIROCIN Inactive BACTRIM DS 800-160 MG TAB Take one (1) tablet by mouth twice a day for 5 days BACTRIM DS 800-160 MG TAB [id number] TRIMETHOPRIM- SULFAMETHOXAZOLE Inactive LACTULOSE 10 GM/15ML ORAL SOLN 30mL oral BID for IBS-C LACTULOSE 10 GM/15ML ORAL SOLN 064220 LACTULOSE Inactive MIRALAX ORAL POWD 17GMS DAILY IN WATER MIRALAX ORAL POWD 507999 POLYETHYLENE GLYCOL 3350 Inactive CEFDINIR 300 MG CAPS by mouth twice a day CEFDINIR 300 MG CAPS 182547 CEFDINIR Inactive PREDNISONE 20 MG TAB 2 tabs daily for 3 days, 1 tab daily for 3 days, 1/2 tab daily for 2 days PREDNISONE 20 MG TAB 990034 PREDNISONE Inactive BACTRIM DS 800-160 MG TABS 1 po BID x 7 days BACTRIM DS 800-160 MG TABS 19820521 SULFAMETHOXAZOLE-TRIMETHOPRIM Inactive DIFLUCAN 150 MG TABS 1 pill every other day x 2 doses DIFLUCAN 150 MG TABS 812326 FLUCONAZOLE Inactive BACTRIM DS 800-160 MG TABS 1 pill by mouth twice daily BACTRIM DS 800-160 MG TABS 19820521 SULFAMETHOXAZOLE-TRIMETHOPRIM Inactive KEFLEX 500 MG CAP 1 po TID x 10 days KEFLEX 500 MG CAP 335903 CEPHALEXIN Inactive Advance Directives Directive Description Start [...] Measured blood pressure, diastolic 99 mm[Hg] BP cmnally blood pressure, systolic 153 mm[Hg] BP sys [...] % 11.0-15.0 platelet count 443 THOUSAND/UL 10*3/mm3 807-019 3360/03/01 mean platelet volume 8.2 fL 7.5-12.5 leukocyte [...] % 11.0-15.0 platelet count 349 THOUSAND/UL 10*3/mm3 765-557 2523/04/12 mean platelet volume 8.4 fL 7.5-12.5 Lab Report: CBC W/DIFF, Comp. Metabolic Panel, HGBA1C, Magnesium - Chemistry sodium, serum 141 mmol/L 582-096 5012/07/24 carbon dioxide, venous blood 27.8 mmol/L 21.0-32.0 [...] 369 10^3/MM^3 10*3/mm3 142-424 Lab Report: Chlamydia/GC APTIMA/30459 - Lab chlamydia DNA probe NOT DETECTED NOT DETECTED Lab Report: Chlamydia/GC APTIMA/35560 - Microbiology Neisseria gonorrhoeae DNA probe NOT DETECTED NOT DETECTED Lab Report: Chlamydia/GC APTIMA/41038, Urinalysis, Complete, with Reflex ... - Lab chlamydia DNA probe NOT DETECTED NOT DETECTED Lab Report: Chlamydia/GC APTIMA/17824, Urinalysis, Complete, with Reflex ... - Microbiology Neisseria gonorrhoeae DNA probe NOT DETECTED NOT DETECTED Lab Report: Chlamydia/GC APTIMA/50564, Urinalysis, Complete, with Reflex ... - Urinalysis microalbumin/total urine volume 2 mg/L Units converted. See lab report for original value. microalbumin/creatinine ratio, urine 9 MCG/MG CREAT mg/L <30 Lab Report: Comp. Metabolic Panel - Chemistry sodium, serum 140 mmol/L 795-081 8147/08/08 carbon dioxide, venous blood 33.7 mmol/L 21.0-32.0 potassium, serum 5.0 mmol/L 3.5-5.2 chloride, serum 103 mmol/L 98-107 blood glucose 80 mg/dL 65-110 urea nitrogen, blood 13 mg/dL 7-18 creatinine, serum 0.88 mg/dL 0.55-1.30 alanine aminotransferase (SGPT), serum 54 U/L -78 aspartate aminotransferase (SGOT), serum 29 U/L 15-37 calcium, serum 9.7 mg/dL 8.5-10.1 bilirubin, serum, total 0.30 mg/dL 0.00-1.00 sodium, serum 140 mmol/L 589-257 9306/06/28 carbon dioxide, venous blood 23.8 mmol/L [...] negative Encounters Code Encounter Date Provider Facility CPT-18691 Level 3 Est. [facility] 11:36:47 [facility] Patient 10:53:17 [facility] Level 3 Est. Patient 11:08:35 CDT Suzan [facility] CPT-57043 Level 3 Est. Patient 15:55:20 CDT Suzan [facility]-10118 Level 4 Est. Patient 10:49:34 CDT Suzan [facility]-12139 Level 3 Est. Patient 10:00:25 CDT Suzan [facility] CPT-48946 Level 3 Est. Patient 10:29:30 CDT Suzan [facility] CPT-02974 Level 3 Est. Patient 11:04:38 CDT Renzo Thornton [facility]-43421 Level 3 Est. Patient 11:15:58 AMBULATORY ANALYST Renzo Thornton [facility] CPT-90532 Level 3 Est. Patient 15:28:23 AMBULATORY ANALYST Suzan [facility] CPT-96902 Level 4 Est. Patient 10:20:54 AMBULATORY ANALYST Suzan [facility] CPT-45022 Level 3 Est. Patient 11:47:37 AMBULATORY ANALYST Ahmet Carbajal MD [facility]-66508 Level 3 Est. Patient 10:40:11 AMBULATORY ANALYST Ahmet Carbajal MD [facility] CPT-66215 Level 3 Est. Patient 15:07:06 AMBULATORY ANALYST Neeraj Collins MD [facility] CPT-71053 Level 4 Est. Patient 14:45:00 AMBULATORY ANALYST Ahmet Carbajal MD [facility] CPT-71466 Level 3 Est. Patient 13:59:59 CDT [facility] CPT-12425 Level 3 Est. Patient 18:18:53 CDT Neeraj Collins MD [facility] CPT-69096 Level 3 Est. Patient 15:50:44 CDT Vishal Hui MD [facility] CPT-13499 Level 3 Est. Patient 11:36:17 CDT Ahmet Carbajal MD [facility] CPT-26538 Level 3 Est. Patient 13:29:16 CDT Vishal Hui MD [facility] CPT-51691 Level 3 Est. Patient 14:27:52 CDT Neeraj Collins MD [facility] CPT-48378 Level 3 Est. Patient 08:56:03 CDT [facility] CPT-79117 Level 4 Est. Patient 12:11:48 CDT [facility] CPT-03292 Level 3 New Patient 16:53:37 CDT Albert Caldera MD [facility] CPT-21852 Level 3 Est. Patient 11:25:49 CDT Renzo Thornton DO [facility] CPT-07324 Level 3 Est. Patient 15:22:01 CDT Ahmet Carbajal MD [facility] CPT-52115 Level 4 Est. Patient 09:00:51 AMBULATORY ANALYST Vishal Hui MD [facility] CPT-29098 Level 3 Est. Patient 11:37:33 AMBULATORY ANALYST Vishal Hui MD [facility] CPT-88988 Level 3 Est. Patient 08:41:09 AMBULATORY ANALYST Vishal Hui MD [facility] CPT-12248 Level 4 Est. Patient 10:19:35 AMBULATORY ANALYST Vishal Hui MD [facility] CPT-42576 Level 3 Est. Patient 13:35:45 CDT Vishal Hui MD [facility] CPT-75228 Level 4 Est. Patient 10:08:37 CDT Vishal Hui MD [facility] CPT-67690 Level 3 Est. Patient 11:22:10 CDT Vishal Hui MD [facility] CPT-91061 Level 3 Est. Patient 11:03:32 CDT Sahara Rodriguez MD [facility]-62336 Level 3 Est. Patient 09:41:35 CDT Vishal Hui MD [facility] CPT-10102 Level 3 Est. Patient 12:00:41 CDT Neeraj Collins MD [facility] CPT-98826 Level 3 Est. Patient 09:16:24 CDT Vishal Hui MD [facility] CPT-17909 Level 4 Est. Patient 13:59:09 CDT Neeraj Collins MD [facility] CPT-67255 Level 3 Est. Patient 15:19:43 CDT Renzo Thornton DO [facility] CPT-03781 Level 3 Est. Patient 18:10:26 CDT Sahara Rodriguez MD [facility]-49888 Level 3 Est. Patient 14:49:50 CDT Vishal Hui MD [facility] CPT-46982 Level 4 Est. Patient 18:41:46 CDT Neeraj Collins MD [facility] CPT-12321 Level 4 Est. Patient 09:18:38 AMBULATORY ANALYST Vishal Hui MD [facility] CPT-02750 Level 3 Est. Patient 14:43:55 AMBULATORY ANALYST Vishal Hui MD [facility] CPT-81540 Level 3 Est. Patient 15:26:33 AMBULATORY ANALYST [facility] Level 3 Est. Patient 10:32:14 AMBULATORY ANALYST Vishal Hui MD [facility] CPT-38656 Level 3 Est. Patient 15:12:52 AMBULATORY ANALYST Vishal Hui MD [facility] CPT-67909 Level 4 Est. Patient 09:19:27 CDT Vishal Hui MD [facility] CPT-94125 Level 3 Est. Patient 15:53:00 CDT Renzo Thorntno [facility] CPT-27359 Level 3 Est. Patient 15:50:30 CDT Renzo Thornton [facility] CPT-00897 Level 3 Est. Patient 16:55:24 CDT Vishal Hui MD [facility] Procedures Code Procedure Name Date Entry Date Standard Description CPT-76240 UA Dip Auto (Floor Use Only) 11:36:47 CDT CPT-55823 Venipuncture Draw Fee 10:53:17 CDT CPT-75327 EKG Trac and Interp - XRAY USE ONLY 15:59:30 CDT 09/13 CPT-38176 Chest 1V Frontal - XRAY USE ONLY 15:59:30 CDT CPT-41482 Venipuncture Draw Fee 15:44:02 CDT CPT-08260 Venipuncture Draw Fee 08:41:12 CDT CPT-49799 Abd compl w upright - XRAY USE ONLY 10:27:59 CDT 06/28 CPT-65568 Smoking Cessation counseling 11:15:58 AMBULATORY ANALYST CPT-G0439 [facility] Annual Wellness Exam 09:30:58 AMBULATORY ANALYST CPT-23277 TSH - LAB USE ONLY 08:50:26 AMBULATORY ANALYST CPT-14750 CBC - LAB USE ONLY 08:50:26 AMBULATORY ANALYST CPT-24447 Venipuncture Draw Fee 08:50:26 AMBULATORY ANALYST CPT-84220 Abx/Therapy Injection 17:34:30 AMBULATORY ANALYST CPT-54678 Nexplanon Removal with Reinsertion 14:09:32 CDT CPT-J7307 Nexplanon (Implant) 14:09:32 CDT CPT-OV Office Visit 14:09:32 CDT CPT-83628 UA w micro - LAB USE ONLY 16:21:13 CDT CPT-38654 Wet Mount - LAB USE ONLY 16:21:13 CDT CPT-32046 First Vx - Ix admin for Medicare patients 14:37:47 CDT CPT-27746 Fluzone Preservative Free Intramuscular Suspension 14:37 :47 CDT CPT-18063 Abx/Therapy Injection 13:54:22 CDT CPT-78610 Abx/Therapy Injection 08:47:09 CDT CPT-11627 Abx/Therapy Injection 13:29:56 CDT CPT-15942 Abx/Therapy Injection 08:36:16 CDT CPT-22801 Wet Mount - LAB USE ONLY 17:44:58 CDT CPT-89832 UA w micro - LAB USE ONLY 17:44:58 CDT CPT-92062 CMP - LAB USE ONLY 17:44:58 CDT CPT-19460 Venipuncture Draw Fee 17:44:58 CDT CPT-71938 Cervical Min 4V - XRAY USE ONLY 09:01:40 CDT CPT-00316 Chest 2V Frontal and Lat - XRAY USE ONLY 11:06:31 CDT CPT-54791 EKG Trac and Interp - XRAY USE ONLY 11:31:43 CDT 08/26 CPT-J3420 Vitamin B12 1000mcg (Cyanocobalamin) 08:10:26 AMBULATORY ANALYST 04/12 CPT-24422 Abx/Therapy Injection 08:10:26 AMBULATORY ANALYST CPT-G0438 Initial Annual Wellness Exam 19:01:01 AMBULATORY ANALYST CPT-J3420 Vitamin B12 1000mcg (Cyanocobalamin) 16:57:46 CDT 08/14 CPT-82712 Recombivax HB Injection Suspension 5 MCG/0.5ML 08:37:50 AMBULATORY ANALYST CPT-00800 Immunization Single Admin 08:37:50 AMBULATORY ANALYST CPT-J3420 Vitamin B12 1000mcg (Cyanocobalamin) 08:32:16 AMBULATORY ANALYST 03/11 CPT-33761 Abx/Therapy Injection 08:32:16 AMBULATORY ANALYST CPT-97397 Chest 2V Frontal and Lat 11:46:38 AMBULATORY ANALYST CPT-31543 Venipuncture Draw Fee 09:12:45 AMBULATORY ANALYST CPT-J3420 Vitamin B12 1000mcg (Cyanocobalamin) 08:50:15 AMBULATORY ANALYST 02/08 CPT-74503 Abx/Therapy Injection 08:50:15 AMBULATORY ANALYST CPT-Cryo Cryotherapy 10:19:35 AMBULATORY ANALYST CPT-000 Give Appropriate Flu Vaccine 09:22:16 CDT CPT-J3420 Vitamin B12 1000mcg (Cyanocobalamin) 19:08:57 CDT 01/11 CPT-09414 Abx/Therapy Injection 19:08:57 CDT CPT-J3420 Vitamin B12 1000mcg (Cyanocobalamin) 08:19:08 CDT 12/11 CPT-21843 Abx/Therapy Injection 08:19:08 CDT CPT-J3420 Vitamin B12 1000mcg (Cyanocobalamin) 14:48:00 CDT 11/09 CPT-57960 Abx/Therapy Injection 14:47:59 CDT CPT-J3420 Vitamin B12 1000mcg (Cyanocobalamin) 08:34:04 CDT 10/09 CPT-70415 Abx/Therapy Injection 08:34:04 CDT CPT-J3420 Vitamin B12 1000mcg (Cyanocobalamin) 09:18:52 CDT 09/11 CPT-40704 Abx/Therapy Injection 09:18:52 CDT CPT-J3420 Vitamin B12 1000mcg (Cyanocobalamin) 08:35:44 CDT 09/04 CPT-91821 Abx/Therapy Injection 08:35:44 CDT CPT-86735 Immunization Single Admin 11:07:16 CDT CPT-99809 Hepatitis B adult IM 11:07:16 CDT CPT-J3420 Vitamin B12 1000mcg (Cyanocobalamin) 11:00:49 CDT 08/28 CPT-J1040 Depo Medrol 80 mg (Methyl Prednisolone Acetate) 11:00: 49 CDT CPT-80388 Abx/Therapy Injection 11:00:49 CDT CPT-J1040 Depo Medrol 80 mg (Methyl Prednisolone Acetate) 09:16: 23 CDT CPT-J3420 Vitamin B12 1000mcg (Cyanocobalamin) 08:27:05 CDT 08/20 CPT-35047 Abx/Therapy Injection 08:27:05 CDT CPT-98794 Recombivax HB Injection Suspension 5 MCG/0.5ML 10:00:41 CDT CPT-23032 Administration single or combination vaccine inc oral 10 :00:41 CDT CPT-36868 Sono transvag pelvis non OB uterus ovaries cervix 16:36: 57 CDT CPT-13314 LS spine comp w obliq 09:50:55 AMBULATORY ANALYST CPT-74898 Abd compl w upright 09:50:55 AMBULATORY ANALYST CPT-J1100 Decadron 4mg (Dexamethasone) 15:51:24 AMBULATORY ANALYST CPT-J1030 Depo Medrol 40 mg (Methyl Prednisolone Acetate) 15:51: 24 AMBULATORY ANALYST CPT-28972 Abx/Therapy Injection 15:51:24 AMBULATORY ANALYST CPT-J1100 Decadron 4mg (Dexamethasone) 15:26:33 AMBULATORY ANALYST CPT-J1030 Depo Medrol 40 mg (Methyl Prednisolone Acetate) 15:26: 33 AMBULATORY ANALYST CPT-92821 Sono retroperitoneal complete kidneys and bladder 17:15: 30 CDT CPT-29264 Abd compl w upright 16:09:25 CDT CPT-J1100 Decadron 8mg (Dexamethasone) 17:07:57 CDT CPT-45165 Abx/Therapy Injection 17:07:57 CDT CPT-J1100 Decadron 8mg (Dexamethasone) 16:55:24 CDT CPT-22572 Chest 2V Frontal and Lat 16:32:44 CDT
--- OUTSIDE RECORDS SUMMARY | 2016-11-04 20:48 | XMS REPORT | Clinical Summary ---
Author Author Admin, E Organization [facility] Address Unknown Phone Unavailable Allergies, Adverse Reactions, [...] 1 four times a day CLINDAMYCIN HCL 31968903465 No Longer Active Neeraj Collins MD Active KEFLEX 500 MG ORAL CAPS 1 cap QID by mouth CEPHALEXIN 40150586477 No Longer Active eNeraj Collins MD Active DIFLUCAN 150 MG TABS 1 pill every other day x 2 doses FLUCONAZOLE 71239124246 No Longer Active Sahara Rodriguez MD PhD Active MELATONIN 3 MG CAPS 2 po q hs MELATONIN 45351599298 No Longer Active Sahara Rodriguez MD PhD Active MULTIVITAMINS CAPS Take one by mouth daily MULTIPLE VITAMIN 25157144891 No Longer Active Sahara Rodriguez MD PhD Active BACTRIM DS 800-160 MG TAB 1 tab by mouth twice daily TRIMETHOPRIM-SULFAMETHOXAZOLE 55640306799 No Longer Active Sahara Rodriguez MD PhD Active [facility] PROBIOTIC ORAL CHEW 2 daily po PROBIOTIC PRODUCT 99589070988 No Longer Active Sahara Rodriguez MD PhD Active IBUPROFEN 600 MG TAB 1 po TID PRN IBUPROFEN 42709049336 Active Luigi Martínez SOUND PERSON Active BACTRIM DS 800-160 MG TABS 1 po BID x 7 days SULFAMETHOXAZOLE-TRIMETHOPRIM 78541668752 No Longer Active Vishal Hui MD Active CHANTIX STARTING MONTH EARNEST 0.5 MG X 11 & 1 MG X 42 TABS 0.5mg daily for 3 days , then 0.5mg BID for 4 days, then 1mg BID VARENICLINE TARTRATE 63142650768 No Longer Active TAMARA Gray Active METOPROLOL TARTRATE 50 MG TAB 1 po bid METOPROLOL TARTRATE 09122857092 Active Vishal Hui MD Active TRAZODONE HCL 100 MG TAB take 1 at bedtime TRAZODONE HCL 32437057064 Active Vishal Hui MD Active AMLODIPINE BESYLATE 5 MG TABS 1 tablet by mouth daily AMLODIPINE BESYLATE 98387203477 Active Vishal Hui MD Active VERAPAMIL HCL CR 120 MG TAB CR 1 po bid VERAPAMIL HCL 96845447898 No Longer Active Vishal Hui MD Active METOPROLOL SUCCINATE 50 MG TB24 1 tablet by mouth daily METOPROLOL SUCCINATE 81777923463 No Longer Active Vishal Hui MD Active TRAMADOL HCL 50 MG TABS 1-2 po TID PRN Pain TRAMADOL HCL 54563631703 Active Vishal Hui MD Active SAPHRIS 5 MG SUBL 1 po bid ASENAPINE MALEATE 12170209361 Active Vishal Hui MD Active SAPHRIS 10 MG SUBL 1 tab po bid ASENAPINE MALEATE 25210723174 No Longer Active Vishal Hui MD Active LISINOPRIL 20 MG TABS 1 tab po qd LISINOPRIL 08106652603 No Longer Active Vishal Hui MD Active BENADRYL 25 MG CAP 2 po tid prn anxiety DIPHENHYDRAMINE HCL 67847054795 Active Vishal Hui MD Active LATUDA 80 MG TABS Take one by mouth daily LURASIDONE HCL 20043460371 Active Vishal Hui MD Active LATUDA 20 MG TABS Take one by mouth daily LURASIDONE HCL 73008196071 No Longer Active Vishal Hui MD Active TRAZODONE HCL 50 MG TABS 1/2 tab po qd prn for anxiety TRAZODONE HCL 37971751487 No Longer Active Vishal Hui MD Active PIROXICAM 20 MG CAPS 1 cap po qd PRN Pain PIROXICAM 75213396439 Active Vishal Hui MD Active OMEPRAZOLE 20 MG TBEC 1 po q a.m. 30min prior to first food intake OMEPRAZOLE 69960528525 Active Vishal Hui MD Active RANITIDINE HCL 150 MG CAPS 1 twice a day RANITIDINE HCL 58092279172 Active Vishal Hui MD Active PROZAC 20 MG CAP Take one by mouth daily FLUOXETINE HCL 59867901889 Active Vishal Hui MD Active LINZESS 290 MCG CAPS Take one by mouth daily LINACLOTIDE 26075008881 Active Vishal Hui MD Active SAPHRIS 5 MG SUBL 1 tab po qd ASENAPINE MALEATE 00132792071 No Longer Active Vishal Hui MD Active ZALEPLON 10 MG CAPS 1 cap po every other night ZALEPLON 03512761500 No Longer Active Vishal Hui MD Active LYRICA 50 MG CAPS 1 tab po TID PREGABALIN 42104341192 No Longer Active Vishal Hui MD Active LORATADINE 10 MG TABS 1 tab po qd LORATADINE 88390926108 No Longer Active Vishal Hui MD Active VERAPAMIL HCL ER 180 MG CR-TABS 1 tab po bid VERAPAMIL HCL 59853377984 No Longer Active Vishal Hui MD Active MIRALAX POWD 1 capfull once daily POLYETHYLENE GLYCOL 3350 42764621099 No Longer Active Vishal Hui MD Active PREDNISONE 20 MG TABS 1 tab po qd PREDNISONE 04624739030 No Longer Active Renzo Thornton DO Active LEVOFLOXACIN 500 MG TABS 1 tab po qd LEVOFLOXACIN 29765490573 No Longer Active Renzo Thornton DO Active BUSPIRONE HCL 15 MG TABS 1 tab po TID BUSPIRONE HCL 41979445789 No Longer Active Renzo Thornton DO Active BENZTROPINE MESYLATE 1 MG TABS 1 tab po qd BENZTROPINE MESYLATE 07140191704 No Longer Active Renzo Thornton DO Active ATENOLOL 25 MG TABS 1 tab po qd ATENOLOL 52269437875 No Longer Active Renzo Thornton DO Active ESCITALOPRAM OXALATE 20 MG TABS 1 tab po qd ESCITALOPRAM OXALATE 96501287841 No Longer Active Renzo Thornton DO Active ADVAIR DISKUS 250-50 MCG/DOSE AEPB 1 puff BID FLUTICASONE-SALMETEROL 20262119233 No Longer Active Renzo Thornton DO Active PREDNISONE 20 MG TAB 2 tabs daily for 3 days, 1 tab daily for 3 days, 1/2 tab daily for 2 days PREDNISONE 53002065798 No Longer Active Vishal Hui MD Active CEFDINIR 300 MG CAPS by mouth twice a day CEFDINIR 46987849566 No Longer Active Vishal Hui MD Active LANSOPRAZOLE 30 MG CPDR 1 cap po qd LANSOPRAZOLE 83139076867 No Longer Active Vishal Hui MD Active TOPAMAX 25 MG TABS 1 tab po bid TOPIRAMATE 43344141755 Active Vishal Hui MD Active MINIPRESS 2 MG CAPS 1 cap po at night PRAZOSIN HCL 17158892808 Active Vishal Hui MD Active BACLOFEN 20 MG TABS 1 tab po tid BACLOFEN 24762771545 Active Vishal Hui MD Active ADVAIR DISKUS 250-50 MCG/DOSE AEPB 1 puff BID ADVAIR DISKUS 250-50 MCG/DOSE AEPB FLUTICASONE-SALMETEROL Inactive ESCITALOPRAM OXALATE 20 MG TABS 1 tab po qd ESCITALOPRAM OXALATE 20 MG TABS 203957 ESCITALOPRAM OXALATE Inactive ATENOLOL 25 MG TABS 1 tab po qd ATENOLOL 25 MG TABS 061659 ATENOLOL Inactive BENZTROPINE MESYLATE 1 MG TABS 1 tab po qd BENZTROPINE MESYLATE 1 MG TABS 517840 BENZTROPINE MESYLATE Inactive BUSPIRONE HCL 15 MG TABS 1 tab po TID BUSPIRONE HCL 15 MG TABS 048495 BUSPIRONE HCL Inactive LEVOFLOXACIN 500 MG TABS 1 tab po qd LEVOFLOXACIN 500 MG TABS 624389 LEVOFLOXACIN Inactive PREDNISONE 20 MG TABS 1 tab po qd PREDNISONE 20 MG TABS 072835 PREDNISONE Inactive MIRALAX POWD 1 capfull once daily MIRALAX POWD 762758 POLYETHYLENE GLYCOL 3350 Inactive VERAPAMIL HCL ER 180 MG CR-TABS 1 tab po bid VERAPAMIL HCL ER 180 MG CR-TABS VERAPAMIL HCL Inactive LORATADINE 10 MG TABS 1 tab po qd LORATADINE 10 MG TABS 031378 LORATADINE Inactive LYRICA 50 MG CAPS 1 tab po TID LYRICA 50 MG CAPS PREGABALIN Inactive ZALEPLON 10 MG CAPS 1 cap po every other night ZALEPLON 10 MG CAPS 425532 ZALEPLON Inactive SAPHRIS 5 MG SUBL 1 tab po qd SAPHRIS 5 MG SUBL ASENAPINE MALEATE Inactive TRAZODONE HCL 50 MG TABS 1/2 tab po qd prn for anxiety TRAZODONE HCL 50 MG TABS 785917 TRAZODONE HCL Inactive LATUDA 20 MG TABS Take one by mouth daily LATUDA 20 MG TABS LURASIDONE HCL Inactive LISINOPRIL 20 MG TABS 1 tab po qd LISINOPRIL 20 MG TABS 641042 LISINOPRIL Inactive SAPHRIS 10 MG SUBL 1 [...] po q hs MELATONIN 3 MG CAPS 232064 MELATONIN Inactive KEFLEX 500 MG ORAL CAPS 1 cap QID by mouth KEFLEX 500 MG ORAL CAPS 506663 CEPHALEXIN Inactive CLINDAMYCIN HCL 150 MG CAPS 1 four times a day CLINDAMYCIN HCL 150 MG CAPS 781908 CLINDAMYCIN HCL Inactive CEFDINIR 300 MG CAPS by mouth twice a day CEFDINIR 300 MG CAPS 574609 CEFDINIR Inactive PREDNISONE 20 MG TAB 2 tabs daily for 3 days, 1 tab daily for 3 days, 1/2 tab daily for 2 days PREDNISONE 20 MG TAB 043224 PREDNISONE Inactive BACTRIM DS 800-160 MG TABS 1 po BID x 7 days BACTRIM DS 800-160 MG TABS SULFAMETHOXAZOLE-TRIMETHOPRIM Inactive DIFLUCAN 150 MG TABS 1 pill every other day x 2 doses DIFLUCAN 150 MG TABS 902940 FLUCONAZOLE Inactive Vital Signs Date Name Value [...] ... - Chemistry sodium, serum 140 mmol/L 533-128 0477/05/28 potassium, serum 4.2 mmol/L 3.5-5.2 chloride, serum [...] Panel - Chemistry sodium, serum 141 mmol/L [phone] potassium, serum 4.3 mmol/L 3.5-5.2 chloride, serum [...] Panel - Chemistry sodium, serum 139 mmol/L 004-679 9145/12/31 potassium, serum 4.8 mmol/L 3.5-5.2 chloride, serum 106 mmol/L 98-107 carbon dioxide, venous blood 24.3 mmol/L 21.0-32.0 blood glucose 90 mg/dL 65-110 urea nitrogen, blood 16 mg/dL 7-18 creatinine, serum 1.00 mg/dL 0.60-1.30 alanine aminotransferase (SGPT), serum 41 U/L 12-78 aspartate aminotransferase (SGOT), serum 17 U/L 15-37 calcium, serum 8.6 mg/dL 8.5-10.1 bilirubin, serum, total 0.30 mg/dL 0.00-1.00 cholesterol, serum 108 mg/dL 809-237 0231/12/31 triglyceride, serum, fasting 120 mg/dL 30-200 HDL [...] semiquantitative 7.0 5.0-8.5 Lab Report: Varicella-Zoater Inga IgG,IgM/12676, HEP Be Antibody/556, RUB ... - Serology rubella antibody, serum, IgG 2.88 Encounters Code Encounter Date Provider Facility [facility]-[id number] Level 4 Est. Patient 13:59:09 CDT Neeraj Collins MD [facility] [place]-[address]100 Level 3 Est. Patient 15:19:43 CDT Renzo Thornton DO [facility] CPT-47538 Level 3 Est. Patient 18:10:26 CDT Sahara Rodriguez MD PhD [facility] [place]-[address]417 Level 3 Est. Patient 14:49:50 CDT Vishal Hui MD [facility] CPT-75407 Level 4 Est. Patient 18:41:46 CDT Neeraj Collins MD [facility] CPT-51957 Level 4 Est. Patient 09:18:38 MANAGER DRILLING Vishal Hui MD [facility]-56032 Level 3 Est. Patient 14:43:55 MANAGER DRILLING Vishal Hui MD [facility] [place]-51048 Level 3 Est. Patient 15:26:33 MANAGER DRILLING Sahara Rodriguez MD PhD [facility] CPT-77907 Level 3 Est. Patient 10:32:14 MANAGER DRILLING Vishal Hui MD [facility] CPT-59329 Level 3 Est. Patient 15:12:52 MANAGER DRILLING Vishal Hui MD [facility] CPT-22291 Level 4 Est. Patient 09:19:27 CDT Vishal Hui MD [facility] CPT-36746 Level 3 Est. Patient 15:53:00 CDT Renzo Thornton [facility] CPT-21023 Level 3 Est. Patient 15:50:30 CDT Renzo Thornton [facility] CPT-12510 Level 3 Est. Patient 16:55:24 CDT Vishal Hui MD [facility] Procedures Code Procedure Name Date Entry Date Standard Description CPT-96015 Recombivax HB Injection Suspension 5 MCG/0.5ML 10:00:41 CDT CPT-79144 Administration single or combination vaccine inc oral 10 :00:41 CDT CPT-52374 Sono transvag pelvis non OB uterus ovaries cervix 16:36: 57 CDT CPT-47594 LS spine comp w obliq 09:50:55 MANAGER DRILLING CPT-74607 Abd compl w upright 09:50:55 MANAGER DRILLING CPT-J1100 Decadron 4mg (Dexamethasone) 15:51:24 MANAGER DRILLING CPT-J1030 Depo Medrol 40 mg (Methyl Prednisolone Acetate) 15:51: 24 MANAGER DRILLING CPT-53600 Abx/Therapy Injection 15:51:24 MANAGER DRILLING CPT-J1100 Decadron 4mg (Dexamethasone) 15:26:33 MANAGER DRILLING CPT-J1030 Depo Medrol 40 mg (Methyl Prednisolone Acetate) 15:26: 33 MANAGER DRILLING CPT-88807 Sono retroperitoneal complete kidneys and bladder 17:15: 30 CDT CPT-99383 Abd compl w upright 16:09:25 CDT CPT-J1100 Decadron 8mg (Dexamethasone) 17:07:57 CDT CPT-02626 Abx/Therapy Injection 17:07:57 CDT CPT-J1100 Decadron 8mg (Dexamethasone) 16:55:24 CDT CPT-88157 Chest 2V Frontal and Lat 16:32:44 CDT
--- OUTSIDE RECORDS SUMMARY | 2016-11-04 20:52 | XMS REPORT | Clinical Summary ---
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 Suzan [...] Vishal Hui MD 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 Inactive Vishla Hui MD Fatigue ICD-780.79 Inactive Vishal Hui [...] SOLN 1 drop PRN eye spasms TROPICAMIDE 71876501756 Active Samantha Stephan RMA Active RISPERDAL 4 MG ORAL TABS 1 tab at bedtime RISPERIDONE 49226517272 Active Samantha Stephan RMA Active LEVAQUIN 500 MG TABS 1 daily for infection LEVOFLOXACIN 40228245261 Active Suzan Boo CONVERSION MAN Active TESSALON PERLES 100 MG CAPS 1 three times a day as needed for cough BENZONATATE 13830110264 Active Suzan Boo APRN Active ZOFRAN 4 MG TABS 1 po q6hr PRN Nausea ONDANSETRON HCL No Longer Active Suzan Boo APRN Active FLUTICASONE PROPIONATE 50 MCG/ACT SUSP 2 sprays each nostril daily before bed. FLUTICASONE PROPIONATE 12765774344 No Longer Active Suzan Boo APRN Active ASPIRIN 325 MG ORAL TABS 1 tab q.d ASPIRIN 97363126008 No Longer Active Suzan Boo APRN Active HALOPERIDOL 10 MG ORAL TABS 1 tab q.d HALOPERIDOL 27887686618 No Longer Active Suzan Boo APRN Active GUAIFENESIN-CODEINE 100-10 MG/5ML SYRP 5ml every 4 to 6 hours as needed for cough GUAIFENESIN-CODEINE 34566007535 No Longer Active Suzan Boo APRN Active ZITHROMAX Z-EARNEST 250 MG TABS 2 today and then 1 daily for 4 days AZITHROMYCIN 63257131508 No Longer Active Suzan Boo APRN Active PREDNISONE 10 MG TABS 2 daily for 5 days then 1 daily for 5 days PREDNISONE 31605205149 Active Suzan Boo APRN Active CLONAZEPAM 1 MG ORAL TABS 1 twice a day and an additional 1 tablet every other day as needed for pseudoseizures or anxiety CLONAZEPAM 31157021374 Active Ahmet Carbajal MD Active HYDROCODONE-ACETAMINOPHEN 5-325 MG ORAL TABS 1 tab two times a day HYDROCODONE-ACETAMINOPHEN 60289283537 No Longer Active Ahmet Carbajal MD Active LAMICTAL 100 MG ORAL TABS 1 tab 2 times qd. LAMOTRIGINE 78669521131 Active Ahmet Carbajal MD Active PREDNISONE 20 MG TABS 2 daily for 5 days then 1 daily for 5 days PREDNISONE 75587133204 No Longer Active Ahmet Carbajal MD Active FLUTICASONE PROPIONATE 50 MCG/ACT SUSP 1 to 2 sprays each nostril daily for allergies FLUTICASONE PROPIONATE 21405049664 Active Tila Nicolas Active BENADRYL 25 MG CAP 4 po at bedtime for insomnia DIPHENHYDRAMINE HCL 76033661091 No Longer Active Ahmet Carbajal MD Active ADVAIR DISKUS 250-50 MCG/DOSE INH AEPB 1 puff twice a day for asthma FLUTICASONE-SALMETEROL 83902752312 No Longer Active Ahmet Carbajal MD Active KLONOPIN 1 MG ORAL TABS 1 tab po TID CLONAZEPAM 59462601522 No Longer Active Ahmet Carbajal MD Active ABILIFY MAINTENA 400 MG IM SUSR 400mg injection every 26 days ARIPIPRAZOLE 03595125606 No Longer Active Ahmet Carbajal MD Active TRAMADOL HCL 50 MG TABS 1/2-1 tab TID PRN TRAMADOL HCL 26459571433 No Longer Active Ahmet Carbajal MD Active BACTRIM DS 800-160 MG TABS 1 twice a day SULFAMETHOXAZOLE- TRIMETHOPRIM 37704816171 No Longer Active Ahmet Carbajal MD Active PROAIR HFA 108 (90 BASE) MCG/ACT AERS 2 puffs four times a day as needed 2015 ALBUTEROL SULFATE 42194169506 Active Ahmet Carbajal MD Active EQ NICOTINE 21 MG/24HR TRANS PT24 Apply daily to stop smoking NICOTINE 44269737490 Active Ahmet Carbajal MD Active MONISTAT 7 COMBO PACK WOODROW 100 & 2 MG-% (9GM) VAG KIT 1 applicatorful per vagina q pm x 7 MICONAZOLE NITRATE 87689299322 No Longer Active Ahmet Carbajal MD Active FLAGYL 500 MG TAB 1 tablet by mouth bid METRONIDAZOLE 54495693232 No Longer Active Ahmet Carbajal MD Active OXYCODONE HCL ER 10 MG ORAL T12A 1/2 tab by mouth every 4 hours prn OXYCODONE HCL 93778680045 No Longer Active Ahmet Carbajal MD Active METHYLPREDNISOLONE 4 MG ORAL TABS po daily METHYLPREDNISOLONE 33193020163 No Longer Active Ahmet Carbajal MD Active LEVOFLOXACIN 500 MG ORAL TABS po daily LEVOFLOXACIN 95452227856 No Longer Active Ahmet Carbajal MD Active VIIBRYD 10 MG ORAL TABS Take 1 tablet once a day VILAZODONE HCL 03507029914 No Longer Active Ahmet Carbajal MD Active TOPAMAX 50 MG ORAL TABS 1 tab twice daily TOPIRAMATE 92395480319 No Longer Active Ahmet Carbajal MD Active DICLOFENAC SODIUM 50 MG TBEC 1 tablet by mouth four times daily PRN Pain 2015 DICLOFENAC SODIUM 28541719643 No Longer Active Ahmet Carbajal MD Active ADZENYS XR-ODT 6.3 MG ORAL TBED 1 tab po daily for ADHD AMPHETAMINE 25330217473 No Longer Active Ahmet Carbajal MD Active CHANTIX 1 MG TABS 1 twice a day to help quit smoking VARENICLINE TARTRATE 63030529220 No Longer Active Dipika Burgos MD Active CHANTIX STARTING MONTH EARNEST 0.5 MG X 11 & 1 MG X 42 TABS take as directed 2015 VARENICLINE TARTRATE 58428468700 No Longer Active Dipika Burgos MD Active TESSALON PERLES 100 MG CAP 1 to 2 tablets by mouth 3 times daily as needed for cough BENZONATATE 95430669593 No Longer Active Luigi Martínez APRN Active IMITREX 50 MG ORAL TABS 0.5 po x 1 PRN Headache. May repeat dose x 1 in 2 hours if needed SUMATRIPTAN SUCCINATE 93040220439 Active Ahmet Carbajal MD Active HYDROCODONE-ACETAMINOPHEN 5-325 MG TABS 1 to 2 four times a day as needed for pain use until can be seen by specialist HYDROCODONE- ACETAMINOPHEN 28342518906 No Longer Active Vishal Hui MD Active PROAIR HFA 108 (90 BASE) MCG/ACT AERS 2 puffs four times a day as needed 2015 ALBUTEROL SULFATE 91827785064 No Longer Active Vishal Hui MD Active PREDNISONE 20 MG TABS 2 daily for 5 days then 1 daily for 5 days PREDNISONE 25940984525 No Longer Active Vishal Hui MD Active ZITHROMAX Z-EARNEST 250 MG TABS 2 today and then 1 daily for 4 days AZITHROMYCIN 93079811385 No Longer Active Vishal Hui MD Active DICLOFENAC POTASSIUM TABS Take 1 tablet twice a day (pt. is not sure of the dose.) DICLOFENAC POTASSIUM TABS 10951224724 No Longer Active Vishal Hui MD Active VERAPAMIL HCL ER 120 MG ORAL CR-TABS Take 1 tablet by mouth twice a day. VERAPAMIL HCL 25262847842 Active Vishal Hui MD Active FLAGYL 500 MG TAB 1 tablet by mouth bid METRONIDAZOLE 58992084547 No Longer Active Vishal Hui MD Active VALIUM 5 MG TAB Take 1-2 tablets daily DIAZEPAM 10438685098 No Longer Active Fabiola Johnson APRN Active METOPROLOL TARTRATE 25 MG ORAL TABS 1/2 tablet twice daily for heart rate and blood pressure METOPROLOL TARTRATE 82388265339 No Longer Active Fabiola Johnson APRN Active MIRALAX ORAL POWD 17GMS DAILY IN WATER POLYETHYLENE GLYCOL 3350 24349699494 Active TAMARA Casey Active MIRALAX PACK 1 po qd PRN Constipation POLYETHYLENE GLYCOL 3350 22746132589 No Longer Active Ahmet Carbajal MD Active MINIPRESS 2 MG CAPS 4 cap po at night PRAZOSIN HCL 10780378233 No Longer Active Ahmet Carbajal MD Active PIROXICAM 20 MG CAPS 1 cap po qd PRN Pain PIROXICAM 74916883554 No Longer Active Ahmet Carbajal MD Active TRAMADOL HCL 50 MG TABS 1-2 po TID PRN Pain TRAMADOL HCL 04529547287 No Longer Active Ahmet Carbajal MD Active METOPROLOL TARTRATE 50 MG TAB 1 po bid METOPROLOL TARTRATE 00686131685 No Longer Active Ahmet Carbajal MD Active ABILIFY 15 MG ORAL TABS 1 tab daily ARIPIPRAZOLE 63714730803 No Longer Active Ahmet Carbajal MD Active PROZAC 20 MG ORAL CAPS 1 tab daily FLUOXETINE HCL 34640249158 No Longer Active Ahmet Carbajal MD Active AMBIEN 5 MG ORAL TABS 1 tab at bedtime ZOLPIDEM TARTRATE 49652083727 No Longer Active Ahmet Carbajal MD Active PREDNISONE 20 MG TAB 2 tabs daily for 4 days, 1 tab daily for 4 days, 1/2 tab daily for 4 days PREDNISONE 64812273366 No Longer Active Ahmet Carbajal MD Active KEFLEX 500 MG CAP 1 po TID x 10 days CEPHALEXIN 05019909640 No Longer Active Vishal Hui MD Active SAPHRIS 5 MG SUBL 1 po bid ASENAPINE MALEATE 06480752833 No Longer Active Jillina Frazell CONVERSION MAN Active LATUDA 80 MG TABS Take one by mouth daily LURASIDONE HCL 21522208138 No Longer Active Jillina Frazell CONVERSION MAN Active AMLODIPINE BESYLATE 5 MG TABS 1 tablet by mouth daily AMLODIPINE BESYLATE 71171176285 No Longer Active Jillina Frazell CONVERSION MAN Active AMITRIPTYLINE HCL 100 MG TAB one at hs AMITRIPTYLINE HCL 68922154283 No Longer Active Vishal Hui MD Active TRAZODONE HCL 100 MG TAB take 1 at bedtime TRAZODONE HCL 03708405400 No Longer Active Vishal Hui MD Active VYVANSE 40 MG CAPS 1 daily, LISDEXAMFETAMINE DIMESYLATE 88175310149 No Longer Active Vishal Hui MD Active IBUPROFEN 600 MG TAB 1 po TID PRN IBUPROFEN 24760804698 No Longer Active Vishal Hui MD Active PROZAC 20 MG CAP Take one by mouth daily FLUOXETINE HCL 22353475357 No Longer Active Vishal Hui MD Active BACTRIM DS 800-160 MG TABS 1 pill by mouth twice daily SULFAMETHOXAZOLE-TRIMETHOPRIM 85852381563 No Longer Active Sahara Rodriguez MD PhD Active DIFLUCAN 150 MG TAB 1 tablet by mouth daily FLUCONAZOLE 71894275258 No Longer Active Vishal Hui MD Active TIZANIDINE HCL 4 MG TABS 1 po q6hr PRN Muscle Spasm/Back Pain TIZANIDINE HCL 61825413650 Active Vishal Hui MD Active CLINDAMYCIN HCL 150 MG CAPS 1 four times a day CLINDAMYCIN HCL 08437380707 No Longer Active Neeraj Collins MD Active KEFLEX 500 MG ORAL CAPS 1 cap QID by mouth CEPHALEXIN 54482847456 No Longer Active Neeraj Collins MD Active DIFLUCAN 150 MG TABS 1 pill every other day x 2 doses FLUCONAZOLE 29759227341 No Longer Active Sahara Rodriguez MD PhD Active MELATONIN 3 MG CAPS 2 po q hs MELATONIN 54176053754 No Longer Active Sahara Rodriguez MD PhD Active MULTIVITAMINS CAPS Take one by mouth daily MULTIPLE VITAMIN 57815120850 No Longer Active Sahara Rodriguez MD PhD Active BACTRIM DS 800-160 MG TAB 1 tab by mouth twice daily TRIMETHOPRIM-SULFAMETHOXAZOLE 24787649531 No Longer Active Sahara Rodriguez MD PhD Active [facility] PROBIOTIC ORAL CHEW 2 daily po PROBIOTIC PRODUCT 95205612633 No Longer Active Sahara Rodriguez MD PhD Active BACTRIM DS 800-160 MG TABS 1 po BID x 7 days SULFAMETHOXAZOLE-TRIMETHOPRIM 67512490172 No Longer Active Vishal Hui MD Active CHANTIX STARTING MONTH EARNEST 0.5 MG X 11 & 1 MG X 42 TABS 0.5mg daily for 3 days , then 0.5mg BID for 4 days, then 1mg BID VARENICLINE TARTRATE 75683013575 No Longer Active TAMARA Gray Active VERAPAMIL HCL CR 120 MG TAB CR 1 po bid VERAPAMIL HCL 32000850863 No Longer Active Vishal Hui MD Active METOPROLOL SUCCINATE 50 MG TB24 1 tablet by mouth daily METOPROLOL SUCCINATE 42146880331 No Longer Active Vishal Hui MD Active SAPHRIS 10 MG SUBL 1 tab po bid ASENAPINE MALEATE 91369866063 No Longer Active Vishal Hui MD Active LISINOPRIL 20 MG TABS 1 tab po qd LISINOPRIL 49387395798 No Longer Active Vishal Hui MD Active LATUDA 20 MG TABS Take one by mouth daily LURASIDONE HCL 44742220583 No Longer Active Vishal Hui MD Active TRAZODONE HCL 50 MG TABS 1/2 tab po qd prn for anxiety TRAZODONE HCL 63149951688 No Longer Active Vishal Hui MD Active OMEPRAZOLE 20 MG TBEC 1 po q a.m. 30min prior to first food intake OMEPRAZOLE 28967146550 Active Vishal Hui MD Active RANITIDINE HCL 150 MG CAPS 1 twice a day RANITIDINE HCL 10116292916 Active Luigi Martínez APRN Active LINZESS 290 MCG CAPS Take one by mouth daily LINACLOTIDE 66262528718 No Longer Active Vishal Hui MD Active SAPHRIS 5 MG SUBL 1 tab po qd ASENAPINE MALEATE 25088611902 No Longer Active Vishal Hui MD Active ZALEPLON 10 MG CAPS 1 cap po every other night ZALEPLON 26495320802 No Longer Active Vishal Hui MD Active LYRICA 50 MG CAPS 1 tab po TID PREGABALIN 43063067071 No Longer Active Vishal Hui MD Active LORATADINE 10 MG TABS 1 tab po qd LORATADINE 27805942074 No Longer Active Vishal Hui MD Active VERAPAMIL HCL ER 180 MG CR-TABS 1 tab po bid VERAPAMIL HCL 65920525543 No Longer Active Vishal Hui MD Active MIRALAX POWD 1 capfull once daily POLYETHYLENE GLYCOL 3350 74045441794 No Longer Active Vishal Hui MD Active PREDNISONE 20 MG TABS 1 tab po qd PREDNISONE 96470075535 No Longer Active Renzo Thornton DO Active LEVOFLOXACIN 500 MG TABS 1 tab po qd LEVOFLOXACIN 49152783787 No Longer Active Renzo Thornton DO Active BUSPIRONE HCL 15 MG TABS 1 tab po TID BUSPIRONE HCL 07726651505 No Longer Active Renzo Thornton DO Active BENZTROPINE MESYLATE 1 MG TABS 1 tab po qd BENZTROPINE MESYLATE 81145118423 No Longer Active Renzo Thornton DO Active ATENOLOL 25 MG TABS 1 tab po qd ATENOLOL 09620727339 No Longer Active Renzo Thornton DO Active ESCITALOPRAM OXALATE 20 MG TABS 1 tab po qd ESCITALOPRAM OXALATE 61178380505 No Longer Active Renzo Thornton DO Active ADVAIR DISKUS 250-50 MCG/DOSE AEPB 1 puff BID FLUTICASONE-SALMETEROL 69265238548 No Longer Active Renzo Thornton DO Active PREDNISONE 20 MG TAB 2 tabs daily for 3 days, 1 tab daily for 3 days, 1/2 tab daily for 2 days PREDNISONE 43394688251 No Longer Active Vishal Hui MD Active CEFDINIR 300 MG CAPS by mouth twice a day CEFDINIR 11987634665 No Longer Active Vishal Hui MD Active LANSOPRAZOLE 30 MG CPDR 1 cap po qd LANSOPRAZOLE 06507413130 No Longer Active Vishal Hui MD Active BACLOFEN 20 MG TABS 1 tab po tid BACLOFEN 67718234210 No Longer Active Vishal Hui MD Active ADVAIR DISKUS 250-50 MCG/DOSE AEPB 1 puff BID ADVAIR DISKUS 250-50 MCG/DOSE AEPB FLUTICASONE-SALMETEROL Inactive ESCITALOPRAM OXALATE 20 MG TABS 1 tab po qd ESCITALOPRAM OXALATE 20 MG TABS 428315 ESCITALOPRAM OXALATE Inactive ATENOLOL 25 MG TABS 1 tab po qd ATENOLOL 25 MG TABS 335038 ATENOLOL Inactive BENZTROPINE MESYLATE 1 MG TABS 1 tab po qd BENZTROPINE MESYLATE 1 MG TABS 991439 BENZTROPINE MESYLATE Inactive BUSPIRONE HCL 15 MG TABS 1 tab po TID BUSPIRONE HCL 15 MG TABS 864790 BUSPIRONE HCL Inactive LEVOFLOXACIN 500 MG TABS 1 tab po qd LEVOFLOXACIN 500 MG TABS 820909 LEVOFLOXACIN Inactive PREDNISONE 20 MG TABS 1 tab po qd PREDNISONE 20 MG TABS 788896 PREDNISONE Inactive MIRALAX POWD 1 capfull once daily MIRALAX POWD 363585 POLYETHYLENE GLYCOL 3350 Inactive VERAPAMIL HCL ER 180 MG CR-TABS 1 tab po bid VERAPAMIL HCL ER 180 MG CR-TABS VERAPAMIL HCL Inactive LORATADINE 10 MG TABS 1 tab po qd LORATADINE 10 MG TABS 279758 LORATADINE Inactive LYRICA 50 MG CAPS 1 tab po TID LYRICA 50 MG CAPS PREGABALIN Inactive ZALEPLON 10 MG CAPS 1 cap po every other night ZALEPLON 10 MG CAPS 209485 ZALEPLON Inactive SAPHRIS 5 MG SUBL 1 tab po qd SAPHRIS 5 MG SUBL ASENAPINE MALEATE Inactive TRAZODONE HCL 50 MG TABS 1/2 tab po qd prn for anxiety TRAZODONE HCL 50 MG TABS 379928 TRAZODONE HCL Inactive LATUDA 20 MG TABS Take one by mouth daily LATUDA 20 MG TABS LURASIDONE HCL Inactive LISINOPRIL 20 MG TABS 1 tab po qd LISINOPRIL 20 MG TABS 789827 LISINOPRIL Inactive SAPHRIS 10 MG SUBL 1 [...] twice daily BACTRIM DS 800-160 MG TAB 695522 TRIMETHOPRIM-SULFAMETHOXAZOLE Inactive MULTIVITAMINS CAPS Take one by mouth daily MULTIVITAMINS CAPS MULTIPLE VITAMIN Inactive MELATONIN 3 MG CAPS 2 po q hs MELATONIN 3 MG CAPS 789484 MELATONIN Inactive KEFLEX 500 MG ORAL CAPS 1 cap QID by mouth KEFLEX 500 MG ORAL CAPS 498104 CEPHALEXIN Inactive CLINDAMYCIN HCL 150 MG CAPS 1 four times a day CLINDAMYCIN HCL 150 MG CAPS 266972 CLINDAMYCIN HCL Inactive DIFLUCAN 150 MG TAB 1 tablet by mouth daily DIFLUCAN 150 MG TAB 136091 FLUCONAZOLE Inactive PROZAC 20 MG CAP Take one by mouth daily PROZAC 20 MG CAP 989643 FLUOXETINE HCL Inactive IBUPROFEN 600 MG TAB 1 po TID PRN IBUPROFEN 600 MG TAB 303720 IBUPROFEN Inactive VYVANSE 40 MG CAPS 1 daily, VYVANSE 40 MG CAPS LISDEXAMFETAMINE DIMESYLATE Inactive TRAZODONE HCL 100 MG TAB take 1 at bedtime TRAZODONE HCL 100 MG TAB 442525 TRAZODONE HCL Inactive AMITRIPTYLINE HCL 100 MG TAB one at hs AMITRIPTYLINE HCL 100 MG TAB 567355 AMITRIPTYLINE HCL Inactive AMLODIPINE BESYLATE 5 MG TABS 1 tablet by mouth daily AMLODIPINE BESYLATE 5 MG TABS 103712 AMLODIPINE BESYLATE Inactive LATUDA 80 MG TABS Take one by mouth daily LATUDA 80 MG TABS LURASIDONE HCL Inactive SAPHRIS 5 MG SUBL 1 po bid SAPHRIS 5 MG SUBL ASENAPINE MALEATE Inactive PREDNISONE 20 MG TAB 2 tabs daily for 4 days, 1 tab daily for 4 days, 1/2 tab daily for 4 days PREDNISONE 20 MG TAB 649850 PREDNISONE Inactive AMBIEN 5 MG ORAL TABS 1 tab at bedtime AMBIEN 5 MG ORAL TABS 700524 ZOLPIDEM TARTRATE Inactive PROZAC 20 MG ORAL CAPS 1 tab daily PROZAC 20 MG ORAL CAPS 030623 FLUOXETINE HCL Inactive ABILIFY 15 MG ORAL TABS 1 tab daily ABILIFY 15 MG ORAL TABS 486612 ARIPIPRAZOLE Inactive METOPROLOL TARTRATE 50 MG TAB 1 po bid METOPROLOL TARTRATE 50 MG TAB 933238 METOPROLOL TARTRATE Inactive TRAMADOL HCL 50 MG TABS 1-2 po TID PRN Pain TRAMADOL HCL 50 MG TABS 665714 TRAMADOL HCL Inactive PIROXICAM 20 MG CAPS 1 cap po qd PRN Pain PIROXICAM 20 MG CAPS 473243 PIROXICAM Inactive MINIPRESS 2 MG CAPS 4 cap po at night MINIPRESS 2 MG CAPS 521017 PRAZOSIN HCL Inactive MIRALAX PACK 1 po qd PRN Constipation MIRALAX PACK 157330 POLYETHYLENE GLYCOL 3350 Inactive METOPROLOL TARTRATE 25 MG ORAL TABS 1/2 tablet twice daily for heart rate and blood pressure METOPROLOL TARTRATE 25 MG ORAL TABS 245362 METOPROLOL TARTRATE Inactive VALIUM 5 MG TAB Take 1-2 tablets daily VALIUM 5 MG TAB 604362 DIAZEPAM Inactive FLAGYL 500 MG TAB 1 tablet by mouth bid FLAGYL 500 MG TAB 678296 METRONIDAZOLE Inactive DICLOFENAC POTASSIUM TABS Take 1 tablet twice a day (pt. is not sure of the dose.) DICLOFENAC POTASSIUM TABS DICLOFENAC POTASSIUM TABS Inactive ZITHROMAX Z-EARNEST 250 MG TABS 2 today and then 1 daily for 4 days ZITHROMAX Z-EARNEST 250 MG TABS 7427381 AZITHROMYCIN Inactive PREDNISONE 20 MG TABS 2 daily for 5 days then 1 daily for 5 days PREDNISONE 20 MG TABS 915506 PREDNISONE Inactive PROAIR HFA 108 (90 BASE) MCG/ACT AERS 2 puffs four times a day as needed 2015 PROAIR HFA 108 (90 BASE) MCG/ACT AERS ALBUTEROL SULFATE Inactive HYDROCODONE-ACETAMINOPHEN 5-325 MG TABS 1 to 2 four times a day as needed for pain use until can be seen by specialist HYDROCODONE- ACETAMINOPHEN 5-325 MG TABS 177315 HYDROCODONE-ACETAMINOPHEN Inactive TESSALON PERLES 100 MG CAP 1 to 2 tablets by mouth 3 times daily as needed for cough TESSALON PERLES 100 MG CAP 079864 BENZONATATE Inactive CHANTIX STARTING MONTH EARNEST 0.5 [...] Pain 2015 DICLOFENAC SODIUM 50 MG TBEC 887399 DICLOFENAC SODIUM Inactive TOPAMAX 50 MG ORAL TABS 1 tab twice daily TOPAMAX 50 MG ORAL TABS 082955 TOPIRAMATE Inactive VIIBRYD 10 MG ORAL TABS Take 1 tablet once a day VIIBRYD 10 MG ORAL TABS VILAZODONE HCL Inactive LEVOFLOXACIN 500 MG ORAL TABS po daily LEVOFLOXACIN 500 MG ORAL TABS 474274 LEVOFLOXACIN Inactive METHYLPREDNISOLONE 4 MG ORAL TABS po daily METHYLPREDNISOLONE 4 MG ORAL TABS 686092 METHYLPREDNISOLONE Inactive OXYCODONE HCL ER 10 MG ORAL T12A 1/2 tab by mouth every 4 hours prn OXYCODONE HCL ER 10 MG ORAL T12A OXYCODONE HCL Inactive FLAGYL 500 MG TAB 1 tablet by mouth bid FLAGYL 500 MG TAB 090250 METRONIDAZOLE Inactive MONISTAT 7 COMBO PACK WOODROW 100 & 2 MG-% (9GM) VAG KIT 1 applicatorful per vagina q pm x 7 MONISTAT 7 COMBO PACK WOODROW 100 & 2 MG-% (9GM) VAG KIT MICONAZOLE NITRATE Inactive BACTRIM DS 800-160 MG TABS 1 twice a day BACTRIM DS 800-160 MG TABS 329933 SULFAMETHOXAZOLE-TRIMETHOPRIM Inactive TRAMADOL HCL 50 MG TABS 1/2-1 tab TID PRN TRAMADOL HCL 50 MG TABS 941056 TRAMADOL HCL Inactive ABILIFCielo MAINTENA 400 MG IM SUSR 400mg injection every 26 days GERALDOLIFCielo MAINTENA 400 MG IM SUSR ARIPIPRAZOLE Inactive KLONOPIN 1 MG ORAL TABS 1 tab po TID KLONOPIN 1 MG ORAL TABS 814060 CLONAZEPAM Inactive ADVAIR DISKUS 250-50 MCG/DOSE INH AEPB 1 puff twice a day for asthma ADVAIR DISKUS 250-50 MCG/DOSE INH AEPB FLUTICASONE- SALMETEROL Inactive BENADRYL 25 MG CAP 4 po at bedtime for insomnia BENADRYL 25 MG CAP DIPHENHYDRAMINE HCL Inactive PREDNISONE 20 MG TABS 2 daily for 5 days then 1 daily for 5 days PREDNISONE 20 MG TABS 745767 PREDNISONE Inactive HYDROCODONE-ACETAMINOPHEN 5-325 MG ORAL TABS 1 tab two times a day HYDROCODONE-ACETAMINOPHEN 5-325 MG ORAL TABS 389885 HYDROCODONE-ACETAMINOPHEN Inactive ZITHROMAX Z-EARNEST 250 MG TABS 2 today and then 1 daily for 4 days ZITHROMAX Z-EARNEST 250 MG TABS 1168773 AZITHROMYCIN Inactive GUAIFENESIN-CODEINE 100-10 MG/5ML SYRP 5ml every 4 to 6 hours as needed for cough GUAIFENESIN-CODEINE 100-10 MG/5ML SYRP 986782 GUAIFENESIN-CODEINE Inactive HALOPERIDOL 10 MG ORAL TABS 1 tab q.d HALOPERIDOL 10 MG ORAL TABS 939008 HALOPERIDOL Inactive ASPIRIN 325 MG ORAL TABS 1 tab q.d ASPIRIN 325 MG ORAL TABS 910385 ASPIRIN Inactive FLUTICASONE PROPIONATE 50 MCG/ACT SUSP 2 sprays each nostril daily before bed. FLUTICASONE PROPIONATE 50 MCG/ACT SUSP 9235878 FLUTICASONE PROPIONATE Inactive ZOFRAN 4 MG TABS 1 po q6hr PRN Nausea ZOFRAN 4 MG TABS 019902 ONDANSETRON HCL Inactive CEFDINIR 300 MG CAPS by mouth twice a day CEFDINIR 300 MG CAPS 214491 CEFDINIR Inactive PREDNISONE 20 MG TAB 2 tabs daily for 3 days, 1 tab daily for 3 days, 1/2 tab daily for 2 days PREDNISONE 20 MG TAB 676868 PREDNISONE Inactive BACTRIM DS 800-160 MG TABS 1 po BID x 7 days BACTRIM DS 800-160 MG TABS 19820521 SULFAMETHOXAZOLE-TRIMETHOPRIM Inactive DIFLUCAN 150 MG TABS 1 pill every other day x 2 doses DIFLUCAN 150 MG TABS 520922 FLUCONAZOLE Inactive BACTRIM DS 800-160 MG TABS 1 pill by mouth twice daily BACTRIM DS 800-160 MG TABS 19820521 SULFAMETHOXAZOLE-TRIMETHOPRIM Inactive KEFLEX 500 MG CAP 1 po TID x 10 days KEFLEX 500 MG CAP 466050 CEPHALEXIN Inactive Advance Directives Directive Description Start [...] % 11.0-15.0 platelet count 443 THOUSAND/UL 10*3/mm3 752-781 4791/03/01 mean platelet volume 8.2 fL 7.5-12.5 Lab [...] 369 10^3/MM^3 10*3/mm3 142-424 Lab Report: Chlamydia/GC APTIMA/[id number] - Lab chlamydia DNA probe NOT DETECTED NOT DETECTED Lab Report: Chlamydia/GC APTIMA/[id number] - Microbiology Neisseria gonorrhoeae DNA probe NOT DETECTED NOT DETECTED Lab Report: Chlamydia/GC APTIMA/[id number], Urinalysis, Complete, with Reflex ... - Lab chlamydia DNA probe NOT DETECTED NOT DETECTED Lab Report: Chlamydia/GC APTIMA/[id number], Urinalysis, Complete, with Reflex ... - Microbiology Neisseria gonorrhoeae DNA probe NOT DETECTED NOT DETECTED Lab Report: Chlamydia/GC APTIMA/52310, Urinalysis, Complete, with Reflex ... - Urinalysis microalbumin/total urine volume 2 mg/L Units converted. See lab report for original value. microalbumin/creatinine ratio, urine 9 MCG/MG CREAT mg/L <30 Lab Report: Comp. Metabolic Panel - Chemistry sodium, serum 142 mmol/L 760-787 6614/06/08 carbon dioxide, venous blood 27.6 mmol/L 21.0-32.0 potassium, serum 4.0 mmol/L 3.5-5.2 chloride, serum 105 mmol/L 98-107 blood glucose 95 mg/dL 65-110 urea nitrogen, blood 8 mg/dL 7-18 creatinine, serum 0.75 mg/dL 0.55-1.30 alanine aminotransferase (SGPT), serum 49 U/L 12-78 aspartate aminotransferase (SGOT), serum 28 U/L 15-37 calcium, serum 9.4 mg/dL 8.5-10.1 bilirubin, serum, total 0.30 mg/dL 0.00-1.00 sodium, serum 140 mmol/L 402-361 2859/08/08 carbon dioxide, venous blood 33.7 mmol/L 21.0-32.0 [...] mg/dL Encounters Code Encounter Date Provider Facility CPT-62887 Level 3 Est. 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 Patient 10:20:54 [employer]IPPING SERVICES SALES REPRESENTATIVE Suzan Boo [facility] CPT-23438 Level 3 Est. Patient 11:47:37 SHIPPING SERVICES SALES REPRESENTATIVE Ahmet Carbajal MD [facility] CPT-70095 Level 3 Est. Patient 10:40:11 SHIPPING SERVICES SALES REPRESENTATIVE Ahmet Carbajal MD [facility] CPT-46809 Level 3 Est. Patient 15:07:06 SHIPPING SERVICES SALES REPRESENTATIVE Neeraj Collins MD [facility] CPT-98412 Level 4 Est. 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 Patient 13:59:59 CDT Luigi Martínez [facility] CPT-53148 Level 3 Est. Patient 18:18:53 CDT Neeraj Collins MD [facility] CPT-19566 Level 3 Est. Patient 15:50:44 CDT Vishal Hui MD [facility] CPT-18557 Level 3 Est. Patient 11:36:17 CDT Ahmet Carbajal MD [facility] CPT-54740 Level 3 Est. Patient 13:29:16 CDT Vishal Hui MD [facility] CPT-79355 Level 3 Est. Patient 14:27:52 CDT Neeraj Collins MD [facility] CPT-86463 Level 3 Est. Patient 08:56:03 CDT Luigi Martínez [facility] CPT-42303 Level 4 Est. Patient 12:11:48 CDT Fabiola Johnson [facility] CPT-36920 Level 3 New Patient 16:53:37 CDT Albert Caldera MD [facility] CPT-58259 Level 3 Est. Patient 11:25:49 CDT Renzo Thornton DO [facility] CPT-24405 Level 3 Est. Patient 15:22:01 CDT Ahmet Carbajal MD [facility] CPT-68463 Level 4 Est. Patient 09:00:51 SHIPPING SERVICES SALES REPRESENTATIVE Vishal Hui MD [facility] CPT-16456 Level 3 Est. Patient 11:37:33 SHIPPING SERVICES SALES REPRESENTATIVE Vishal Hui MD [facility] CPT-11426 Level 3 Est. Patient 08:41:09 SHIPPING SERVICES SALES REPRESENTATIVE Vishal Hui MD [facility] CPT-20219 Level 4 Est. Patient 10:19:35 SHIPPING SERVICES SALES REPRESENTATIVE Vishal Hui MD [facility] CPT-65231 Level 3 Est. Patient 13:35:45 CDT Vishal Hui MD [facility] CPT-87295 Level 4 Est. Patient 10:08:37 CDT Vishal uHi MD [facility] CPT-95431 Level 3 Est. Patient 11:22:10 CDT Vishal Hui MD [facility] CPT-86284 Level 3 Est. Patient 11:03:32 CDT Sahara Rodriguez MD, PhD [facility] CPT-94147 Level 3 Est. Patient 09:41:35 CDT Vishal Hui MD [facility] CPT-95381 Level 3 Est. Patient 12:00:41 CDT Neeraj Collins MD [facility] CPT-65175 Level 3 Est. Patient 09:16:24 CDT Vishal Hui MD [facility] CPT-50556 Level 4 Est. Patient 13:59:09 CDT Neeraj Collins MD [facility] CPT-85176 Level 3 Est. Patient 15:19:43 CDT Renzo Thornton [facility] CPT-74360 Level 3 Est. Patient 18:10:26 CDT Sahara Rordiguez MD [facility]-62824 Level 3 Est. Patient 14:49:50 CDT Vishal Hui MD [facility] CPT-58229 Level 4 Est. Patient 18:41:46 CDT Neeraj Collins MD [facility] CPT-11102 Level 4 Est. Patient 09:18:38 SHIPPING SERVICES SALES REPRESENTATIVE Vishal Hui MD [facility] CPT-22923 Level 3 Est. Patient 14:43:55 SHIPPING SERVICES SALES REPRESENTATIVE Vishal Hui MD [facility] CPT-49342 Level 3 Est. Patient 15:26:33 SHIPPING SERVICES SALES REPRESENTATIVE Sahara Rodriguez MD PhD [facility] CPT-77781 Level 3 Est. Patient 10:32:14 SHIPPING SERVICES SALES REPRESENTATIVE Vishal Hui MD [facility] CPT-50549 Level 3 Est. Patient 15:12:52 SHIPPING SERVICES SALES REPRESENTATIVE Vishal Hui MD [facility] CPT-17977 Level 4 Est. Patient 09:19:27 CDT Vishal Hui MD [facility]-58650 Level 3 Est. Patient 15:53:00 CDT Renzo Thornton [facility] CPT-44106 Level 3 Est. Patient 15:50:30 CDT [facility] CPT-17821 Level 3 Est. Patient 16:55:24 CDT Vishal Hui MD [facility] Procedures Code Procedure Name Date Entry Date Standard Description CPT-G0439 Subsequent Annual Wellness Exam 09:30:58 SHIPPING SERVICES SALES REPRESENTATIVE CPT-47925 TSH - LAB USE ONLY 08:50:26 SHIPPING SERVICES SALES REPRESENTATIVE CPT-36654 CBC - LAB USE ONLY 08:50:26 SHIPPING SERVICES SALES REPRESENTATIVE CPT-83229 Venipuncture Draw Fee 08:50:26 SHIPPING SERVICES SALES REPRESENTATIVE CPT-21155 Abx/Therapy Injection 17:34:30 SHIPPING SERVICES SALES REPRESENTATIVE CPT-18956 Nexplanon Removal with Reinsertion 14:09:32 CDT CPT-J7307 Nexplanon (Implant) 14:09:32 CDT CPT-OV Office Visit 14:09:32 CDT CPT-89297 UA w micro - LAB USE ONLY 16:21:13 CDT CPT-96878 Wet Mount - LAB USE ONLY 16:21:13 CDT CPT-34424 First Vx - Ix admin for Medicare patients 14:37:47 CDT CPT-19522 Fluzone Preservative Free Intramuscular Suspension 14:37 :47 CDT CPT-67697 Abx/Therapy Injection 13:54:22 CDT CPT-42840 Abx/Therapy Injection 08:47:09 CDT CPT-44137 Abx/Therapy Injection 13:29:56 CDT CPT-47852 Abx/Therapy Injection 08:36:16 CDT CPT-14098 Wet Mount - LAB USE ONLY 17:44:58 CDT CPT-33005 UA w micro - LAB USE ONLY 17:44:58 CDT CPT-44933 CMP - LAB USE ONLY 17:44:58 CDT CPT-53584 Venipuncture Draw Fee 17:44:58 CDT CPT-57334 Cervical Min 4V - XRAY USE ONLY 09:01:40 CDT CPT-48319 Chest 2V Frontal and Lat - XRAY USE ONLY 11:06:31 CDT CPT-12370 EKG Trac and Interp - XRAY USE ONLY 11:31:43 CDT 08/26 CPT-J3420 Vitamin B12 1000mcg (Cyanocobalamin) 08:10:26 SHIPPING SERVICES SALES REPRESENTATIVE 04/12 CPT-08850 Abx/Therapy Injection 08:10:26 SHIPPING SERVICES SALES REPRESENTATIVE CPT-G0438 Initial Annual Wellness Exam 19:01:01 SHIPPING SERVICES SALES REPRESENTATIVE CPT-J3420 Vitamin B12 1000mcg (Cyanocobalamin) 16:57:46 CDT 08/14 CPT-70476 Recombivax HB Injection Suspension 5 MCG/0.5ML 08:37:50 SHIPPING SERVICES SALES REPRESENTATIVE CPT-14515 Immunization Single Admin 08:37:50 SHIPPING SERVICES SALES REPRESENTATIVE CPT-J3420 Vitamin B12 1000mcg (Cyanocobalamin) 08:32:16 SHIPPING SERVICES SALES REPRESENTATIVE 03/11 CPT-78903 Abx/Therapy Injection 08:32:16 SHIPPING SERVICES SALES REPRESENTATIVE CPT-12707 Chest 2V Frontal and Lat 11:46:38 SHIPPING SERVICES SALES REPRESENTATIVE CPT-81534 Venipuncture Draw Fee 09:12:45 SHIPPING SERVICES SALES REPRESENTATIVE CPT-J3420 Vitamin B12 1000mcg (Cyanocobalamin) 08:50:15 SHIPPING SERVICES SALES REPRESENTATIVE 02/08 CPT-86778 Abx/Therapy Injection 08:50:15 SHIPPING SERVICES SALES REPRESENTATIVE CPT-Cryo Cryotherapy 10:19:35 SHIPPING SERVICES SALES REPRESENTATIVE CPT-000 Give Appropriate Flu Vaccine 09:22:16 CDT CPT-J3420 Vitamin B12 1000mcg (Cyanocobalamin) 19:08:57 CDT 01/11 CPT-08893 Abx/Therapy Injection 19:08:57 CDT CPT-J3420 Vitamin B12 1000mcg (Cyanocobalamin) 08:19:08 CDT 12/11 CPT-83549 Abx/Therapy Injection 08:19:08 CDT CPT-J3420 Vitamin B12 1000mcg (Cyanocobalamin) 14:48:00 CDT 11/09 CPT-27693 Abx/Therapy Injection 14:47:59 CDT CPT-J3420 Vitamin B12 1000mcg (Cyanocobalamin) 08:34:04 CDT 10/09 CPT-75720 Abx/Therapy Injection 08:34:04 CDT CPT-J3420 Vitamin B12 1000mcg (Cyanocobalamin) 09:18:52 CDT 09/11 CPT-74988 Abx/Therapy Injection 09:18:52 CDT CPT-J3420 Vitamin B12 1000mcg (Cyanocobalamin) 08:35:44 CDT 09/04 CPT-62872 Abx/Therapy Injection 08:35:44 CDT CPT-64926 Immunization Single Admin 11:07:16 CDT CPT-26543 Hepatitis B adult IM 11:07:16 CDT CPT-J3420 Vitamin B12 1000mcg (Cyanocobalamin) 11:00:49 CDT 08/28 CPT-J1040 Depo Medrol 80 mg (Methyl Prednisolone Acetate) 11:00: 49 CDT CPT-75832 Abx/Therapy Injection 11:00:49 CDT CPT-J1040 Depo Medrol 80 mg (Methyl Prednisolone Acetate) 09:16: 23 CDT CPT-J3420 Vitamin B12 1000mcg (Cyanocobalamin) 08:27:05 CDT 08/20 CPT-32750 Abx/Therapy Injection 08:27:05 CDT CPT-10375 Recombivax HB Injection Suspension 5 MCG/0.5ML 10:00:41 CDT CPT-90750 Administration single or combination vaccine inc oral 10 :00:41 CDT CPT-56841 Sono transvag pelvis non OB uterus ovaries cervix 16:36: 57 CDT CPT-32979 LS spine comp w obliq 09:50:55 SHIPPING SERVICES SALES REPRESENTATIVE CPT-01177 Abd compl w upright 09:50:55 SHIPPING SERVICES SALES REPRESENTATIVE CPT-J1100 Decadron 4mg (Dexamethasone) 15:51:24 SHIPPING SERVICES SALES REPRESENTATIVE CPT-J1030 Depo Medrol 40 mg (Methyl Prednisolone Acetate) 15:51: 24 SHIPPING SERVICES SALES REPRESENTATIVE CPT-65447 Abx/Therapy Injection 15:51:24 SHIPPING SERVICES SALES REPRESENTATIVE CPT-J1100 Decadron 4mg (Dexamethasone) 15:26:33 SHIPPING SERVICES SALES REPRESENTATIVE CPT-J1030 Depo Medrol 40 mg (Methyl Prednisolone Acetate) 15:26: 33 SHIPPING SERVICES SALES REPRESENTATIVE CPT-52641 Sono retroperitoneal complete kidneys and bladder 17:15: 30 CDT CPT-83268 Abd compl w upright 16:09:25 CDT CPT-J1100 Decadron 8mg (Dexamethasone) 17:07:57 CDT CPT-87251 Abx/Therapy Injection 17:07:57 CDT CPT-J1100 Decadron 8mg (Dexamethasone) 16:55:24 CDT CPT-37221 Chest 2V Frontal and Lat 16:32:44 CDT
--- OUTSIDE RECORDS SUMMARY | 2016-11-04 20:56 | XMS REPORT ---
Author [facility] Medical Staff Organization [facility] [employer] [facility] Address [address] [place], [place] [id number] Phone [phone] Care Team Providers Care Lotus Notes Administrator Name Role Phone DENICE OCHOA MD, PP [phone] Summary purpose TRANSITION OF CARE AUTO GENERATION [...] Date Performed Performing Physician [id number] CPT-4 ALS1-EMERGENCY 07-28-2015 [facility] [id number] CPT-4 GROUND MILEAGE 07-28-2015 [facility] Functional status No functional or cognitive status [...]
--- OUTSIDE RECORDS SUMMARY | 2016-11-04 20:56 | XMS REPORT | Clinical Summary ---
Author Author Admin, E Organization [facility] Address Unknown Phone Unavailable Allergies, Adverse Reactions, [...] facility Sinus tachycardia 427.89 Resolved Suzan Rajeev CODING EDUCATOR Other specified cardiac dysrhythmias Schizoaffective disorder 295.70 [...] Active Ahmet Carbajal MD Generalized anxiety disorder Leather Skinner well woman exam V72.31 Active Suzan Boo [...] MD Health screening ICD-V70.0 Inactive Suzan Boo CODING EDUCATOR Sinus tachycardia ICD-427.89 Jim Boo APRN Smoker/tobacco [...] twice a day for 5 days TRIMETHOPRIM-SULFAMETHOXAZOLE 44580252604 Active Samantha MCDONALD Active MUPIROCIN 2 % OINT apply twice a day MUPIROCIN 79665909750 No Longer Active Suzan Boo APRN Active BACTRIM DS 800-160 MG TABS 1 twice a day SULFAMETHOXAZOLE-TRIMETHOPRIM 94062788599 No Longer Active Suzan Boo APRN Active DIFLUCAN 150 MG TABS 1 by mouth for yeast FLUCONAZOLE 73790492720 No Longer Active Suzan Boo APRN Active AMITIZA 8 MCG ORAL CAPS 1 capsule twice daily LUBIPROSTONE 29980135285 Active Sheila Calderon LPN Active LINZESS 290 MCG ORAL CAPS 1 tab 30 min prior to first meal each day. LINACLOTIDE 33968627339 No Longer Active Sheila Calderon LPN Active AMITIZA 8 MCG ORAL CAPS 1 tab BID LUBIPROSTONE 80710495929 No Longer Active Lynda Xiao LPN Active LACTULOSE 10 GM/15ML ORAL SOLN 30mL oral BID for IBS-C LACTULOSE 68334451474 Active Suzan Boo APRN Active TESSALON PERLES 100 MG CAPS 1 three times a day as needed for cough BENZONATATE 91609578915 No Longer Active Suzan Boo APRN Active BACTRIM DS 800-160 MG TABS 1 twice a day SULFAMETHOXAZOLE-TRIMETHOPRIM 59651149735 No Longer Active Suzan Boo APRN Active DIFLUCAN 150 MG TABS 1 by mouth for yeast FLUCONAZOLE 19084225831 No Longer Active Suzan Boo APRN Active EQ NICOTINE 21 MG/24HR TRANS PT24 Apply daily to stop smoking NICOTINE 05101762823 No Longer Active Suzan Boo APRN Active PREDNISONE 10 MG TABS 2 daily for 5 days then 1 daily for 5 days PREDNISONE 16738592059 No Longer Active Suzan Boo APRN Active LEVAQUIN 500 MG TABS 1 daily for infection LEVOFLOXACIN 24092748229 No Longer Active Suzan Boo APRN Active TROPICAMIDE 0.5 % OPHTH SOLN 1 drop PRN eye spasms TROPICAMIDE 77331312916 No Longer Active Suzan Boo APRN Active PREDNISONE 20 MG TAB 1 tablet daily x 4 days PREDNISONE 06639123581 No Longer Active Suzan Boo APRN Active ACETAMINOPHEN-CODEINE 120-12 MG/5ML SOLN 5 ml by mouth every 4-6 hours if needed for cough ACETAMINOPHEN-CODEINE 14204566478 No Longer Active Suzan Boo APRN Active KEFLEX 500 MG CAP 1 po qid CEPHALEXIN 70774307369 No Longer Active Suzan Boo APRN Active FLOVENT HFA 110 MCG/ACT AERO 2 puffs inhaled b.i.d. FLUTICASONE PROPIONATE HFA 23855120134 Active Renzo Thornton DO Active RISPERDAL 4 MG ORAL TABS 1 tab at bedtime RISPERIDONE 04427999423 Active Samantha Rothman RMA Active ZOFRAN 4 MG TABS 1 po q6hr PRN Nausea ONDANSETRON HCL No Longer Active Suzan Boo APRN Active FLUTICASONE PROPIONATE 50 MCG/ACT SUSP 2 sprays each nostril daily before bed. FLUTICASONE PROPIONATE 18356665106 No Longer Active Suzan Boo APRN Active ASPIRIN 325 MG ORAL TABS 1 tab q.d ASPIRIN 24050361585 No Longer Active Suzan Boo APRN Active HALOPERIDOL 10 MG ORAL TABS 1 tab q.d HALOPERIDOL 31035357586 No Longer Active Suzan Boo APRN Active GUAIFENESIN-CODEINE 100-10 MG/5ML SYRP 5ml every 4 to 6 hours as needed for cough GUAIFENESIN-CODEINE 20133510845 No Longer Active Suzan Boo APRN Active ZITHROMAX Z-EARNEST 250 MG TABS 2 today and then 1 daily for 4 days AZITHROMYCIN 84947213423 No Longer Active Suzan Boo APRN Active CLONAZEPAM 1 MG ORAL TABS 1 twice a day and an additional 1 tablet every other day as needed for pseudoseizures or anxiety CLONAZEPAM 28480669670 Active Suzan Boo APRN Active HYDROCODONE-ACETAMINOPHEN 5-325 MG ORAL TABS 1 tab two times a day HYDROCODONE-ACETAMINOPHEN 41267219075 No Longer Active Ahmet Carbajal MD Active LAMICTAL 100 MG ORAL TABS 1 tab 2 times qd. LAMOTRIGINE 94439049081 Active Ahmet Carbajal MD Active PREDNISONE 20 MG TABS 2 daily for 5 days then 1 daily for 5 days PREDNISONE 75244028370 No Longer Active Ahmet Carbajal MD Active FLUTICASONE PROPIONATE 50 MCG/ACT SUSP 1 to 2 sprays each nostril daily for allergies FLUTICASONE PROPIONATE 18960406609 Active Tila Valenzuela Active BENADRYL 25 MG CAP 4 po at bedtime for insomnia DIPHENHYDRAMINE HCL 24990272770 No Longer Active Ahmet Carbajal MD Active ADVAIR DISKUS 250-50 MCG/DOSE INH AEPB 1 puff twice a day for asthma FLUTICASONE-SALMETEROL 83985253181 No Longer Active Ahmet Carbajal MD Active KLONOPIN 1 MG ORAL TABS 1 tab po TID CLONAZEPAM 52855385483 No Longer Active Ahmet Carbajal MD Active ABILIFY MAINTENA 400 MG IM SUSR 400mg injection every 26 days ARIPIPRAZOLE 71074933571 No Longer Active Ahmet Carbajal MD Active TRAMADOL HCL 50 MG TABS 1/2-1 tab TID PRN TRAMADOL HCL 00585729289 No Longer Active Ahmet Carbajal MD Active BACTRIM DS 800-160 MG TABS 1 twice a day SULFAMETHOXAZOLE- TRIMETHOPRIM 87970803216 No Longer Active Ahmet Carbajal MD Active PROAIR HFA 108 (90 BASE) MCG/ACT AERS 2 puffs four times a day as needed 2015 ALBUTEROL SULFATE 52231242871 Active Honey Hinton CODING EDUCATOR Active MONISTAT 7 COMBO PACK WOODROW 100 & 2 MG-% (9GM) VAG KIT 1 applicatorful per vagina q pm x 7 MICONAZOLE NITRATE 83531717937 No Longer Active Ahmet Carbajal MD Active FLAGYL 500 MG TAB 1 tablet by mouth bid METRONIDAZOLE 24469811017 No Longer Active Ahmet Carbajal MD Active OXYCODONE HCL ER 10 MG ORAL T12A 1/2 tab by mouth every 4 hours prn OXYCODONE HCL 00457198503 No Longer Active Ahmet Carbajal MD Active METHYLPREDNISOLONE 4 MG ORAL TABS po daily METHYLPREDNISOLONE 46328613680 No Longer Active Ahmet Carbajal MD Active LEVOFLOXACIN 500 MG ORAL TABS po daily LEVOFLOXACIN 60522011737 No Longer Active Ahmet Carbajal MD Active VIIBRYD 10 MG ORAL TABS Take 1 tablet once a day VILAZODONE HCL 41516338221 No Longer Active Ahmet Carbajal MD Active TOPAMAX 50 MG ORAL TABS 1 tab twice daily TOPIRAMATE 53822271797 No Longer Active Ahmet Carbajal MD Active DICLOFENAC SODIUM 50 MG TBEC 1 tablet by mouth four times daily PRN Pain 2015 DICLOFENAC SODIUM 80657876256 No Longer Active Ahmet Carbajal MD Active ADZENYS XR-ODT 6.3 MG ORAL TBED 1 tab po daily for ADHD AMPHETAMINE 81138173638 No Longer Active Ahmet Carbajal MD Active CHANTIX 1 MG TABS 1 twice a day to help quit smoking VARENICLINE TARTRATE 04217931981 No Longer Active Dipika Burgos MD Active CHANTIX STARTING MONTH EARNEST 0.5 MG X 11 & 1 MG X 42 TABS take as directed 2015 VARENICLINE TARTRATE 01121658482 No Longer Active Dipika Burgos MD Active TESSALON PERLES 100 MG CAP 1 to 2 tablets by mouth 3 times daily as needed for cough BENZONATATE 85692357044 No Longer Active Luigi Martínez APRN Active IMITREX 50 MG ORAL TABS 0.5 po x 1 PRN Headache. May repeat dose x 1 in 2 hours if needed SUMATRIPTAN SUCCINATE 52429887934 Active Ahmet Carbajal MD Active HYDROCODONE-ACETAMINOPHEN 5-325 MG TABS 1 to 2 four times a day as needed for pain use until can be seen by specialist HYDROCODONE- ACETAMINOPHEN 19446604547 No Longer Active Vishal Hui MD Active PROAIR HFA 108 (90 BASE) MCG/ACT AERS 2 puffs four times a day as needed 2015 ALBUTEROL SULFATE 37257792950 No Longer Active Vishal Hui MD Active PREDNISONE 20 MG TABS 2 daily for 5 days then 1 daily for 5 days PREDNISONE 22502279095 No Longer Active Vishal Hui MD Active ZITHROMAX Z-EARNEST 250 MG TABS 2 today and then 1 daily for 4 days AZITHROMYCIN 00013054788 No Longer Active Vishal Hui MD Active DICLOFENAC POTASSIUM TABS Take 1 tablet twice a day (pt. is not sure of the dose.) DICLOFENAC POTASSIUM TABS 32867334364 No Longer Active Vishal Hui MD Active VERAPAMIL HCL ER 120 MG ORAL CR-TABS Take 1 tablet by mouth twice a day. VERAPAMIL HCL 85545645797 Active Vishal Hui MD Active FLAGYL 500 MG TAB 1 tablet by mouth bid METRONIDAZOLE 04004918867 No Longer Active Vishal Hui MD Active VALIUM 5 MG TAB Take 1-2 tablets daily DIAZEPAM 18937896548 No Longer Active Fabiola Johnson APRN Active METOPROLOL TARTRATE 25 MG ORAL TABS 1/2 tablet twice daily for heart rate and blood pressure METOPROLOL TARTRATE 76503776680 No Longer Active Fabiola Johnson APRN Active MIRALAX ORAL POWD 17GMS DAILY IN WATER POLYETHYLENE GLYCOL 3350 89276596140 Active TAMARA Casey Active MIRALAX PACK 1 po qd PRN Constipation POLYETHYLENE GLYCOL 3350 97187422769 No Longer Active Ahmet Carbajal MD Active MINIPRESS 2 MG CAPS 4 cap po at night PRAZOSIN HCL 46377871233 No Longer Active Ahmet Carbajal MD Active PIROXICAM 20 MG CAPS 1 cap po qd PRN Pain PIROXICAM 34772624026 No Longer Active Ahmet Carbajal MD Active TRAMADOL HCL 50 MG TABS 1-2 po TID PRN Pain TRAMADOL HCL 29198091006 No Longer Active Ahmet Carbajal MD Active METOPROLOL TARTRATE 50 MG TAB 1 po bid METOPROLOL TARTRATE 53874452904 No Longer Active Ahmet Carbajal MD Active ABILIFY 15 MG ORAL TABS 1 tab daily ARIPIPRAZOLE 83300466173 No Longer Active Ahmet Carbajal MD Active PROZAC 20 MG ORAL CAPS 1 tab daily FLUOXETINE HCL 30924876736 No Longer Active Ahmet Carbajal MD Active AMBIEN 5 MG ORAL TABS 1 tab at bedtime ZOLPIDEM TARTRATE 42008891239 No Longer Active Ahmet Carbajal MD Active PREDNISONE 20 MG TAB 2 tabs daily for 4 days, 1 tab daily for 4 days, 1/2 tab daily for 4 days PREDNISONE 14378932051 No Longer Active Ahmet Carbajal MD Active KEFLEX 500 MG CAP 1 po TID x 10 days CEPHALEXIN 38014326632 No Longer Active Vishal Hui MD Active SAPHRIS 5 MG SUBL 1 po bid ASENAPINE MALEATE 86321958758 No Longer Active Luigi Martínez APRN Active LATUDA 80 MG TABS Take one by mouth daily LURASIDONE HCL 12850917900 No Longer Active Luigi Martínez APRN Active AMLODIPINE BESYLATE 5 MG TABS 1 tablet by mouth daily AMLODIPINE BESYLATE 02575116187 No Longer Active Luigi Martínez APRN Active AMITRIPTYLINE HCL 100 MG TAB one at hs AMITRIPTYLINE HCL 58382373639 No Longer Active Vishal Hui MD Active TRAZODONE HCL 100 MG TAB take 1 at bedtime TRAZODONE HCL 59243076564 No Longer Active Vishal Hui MD Active VYVANSE 40 MG CAPS 1 daily, LISDEXAMFETAMINE DIMESYLATE 41457484615 No Longer Active Vishal Hui MD Active IBUPROFEN 600 MG TAB 1 po TID PRN IBUPROFEN 43100595876 No Longer Active Vishal Hui MD Active PROZAC 20 MG CAP Take one by mouth daily FLUOXETINE HCL 47417815855 No Longer Active Vishal Hui MD Active BACTRIM DS 800-160 MG TABS 1 pill by mouth twice daily SULFAMETHOXAZOLE-TRIMETHOPRIM 46921004555 No Longer Active Sahara Rodriguez MD PhD Active DIFLUCAN 150 MG TAB 1 tablet by mouth daily FLUCONAZOLE 34115588973 No Longer Active Vishal Hiu MD Active TIZANIDINE HCL 4 MG TABS 1 po q6hr PRN Muscle Spasm/Back Pain TIZANIDINE HCL 53374383624 Active TAMARA Casey Active CLINDAMYCIN HCL 150 MG CAPS 1 four times a day CLINDAMYCIN HCL 10401454391 No Longer Active Neeraj Collins MD Active KEFLEX 500 MG ORAL CAPS 1 cap QID by mouth CEPHALEXIN 29347970911 No Longer Active Neeraj Collins MD Active DIFLUCAN 150 MG TABS 1 pill every other day x 2 doses FLUCONAZOLE 38905483507 No Longer Active Sahara Rodriguez MD PhD Active MELATONIN 3 MG CAPS 2 po q hs MELATONIN 77187738599 No Longer Active Sahara Rodriguez MD PhD Active MULTIVITAMINS CAPS Take one by mouth daily MULTIPLE VITAMIN 13069353062 No Longer Active Sahara Rodriguez MD PhD Active BACTRIM DS 800-160 MG TAB 1 tab by mouth twice daily TRIMETHOPRIM-SULFAMETHOXAZOLE 86850403308 No Longer Active Sahara Rodriguez MD PhD Active [facility] PROBIOTIC ORAL CHEW 2 daily po PROBIOTIC PRODUCT 58057356422 No Longer Active Sahara Rodriguez MD PhD Active BACTRIM DS 800-160 MG TABS 1 po BID x 7 days SULFAMETHOXAZOLE-TRIMETHOPRIM 09232951440 No Longer Active Vishal Hui MD Active CHANTIX STARTING MONTH EARNEST 0.5 MG X 11 & 1 MG X 42 TABS 0.5mg daily for 3 days , then 0.5mg BID for 4 days, then 1mg BID VARENICLINE TARTRATE 84851473238 No Longer Active TAMARA Gray Active VERAPAMIL HCL CR 120 MG TAB CR 1 po bid VERAPAMIL HCL 97902436267 No Longer Active Vishal Hui MD Active METOPROLOL SUCCINATE 50 MG TB24 1 tablet by mouth daily METOPROLOL SUCCINATE 89435265437 No Longer Active Vishal Hui MD Active SAPHRIS 10 MG SUBL 1 tab po bid ASENAPINE MALEATE 09563499463 No Longer Active Vishal Hui MD Active LISINOPRIL 20 MG TABS 1 tab po qd LISINOPRIL 77054378993 No Longer Active Vishal Hui MD Active LATUDA 20 MG TABS Take one by mouth daily LURASIDONE HCL 08691906649 No Longer Active Vishal Hui MD Active TRAZODONE HCL 50 MG TABS 1/2 tab po qd prn for anxiety TRAZODONE HCL 10052234828 No Longer Active Vishal Hui MD Active OMEPRAZOLE 20 MG TBEC 1 po q a.m. 30min prior to first food intake OMEPRAZOLE 62982753190 Active Bertha Kirby, RMA Active RANITIDINE HCL 150 MG CAPS 1 twice a day RANITIDINE HCL 63266512819 Active Lynda Xiao COMMUNITY LIAISON OFFICER Active LINZESS 290 MCG CAPS Take one by mouth daily LINACLOTIDE 56732124815 No Longer Active Vishal Hui MD Active SAPHRIS 5 MG SUBL 1 tab po qd ASENAPINE MALEATE 07891009298 No Longer Active Vishal Hui MD Active ZALEPLON 10 MG CAPS 1 cap po every other night ZALEPLON 97505213048 No Longer Active Vishal Hui MD Active LYRICA 50 MG CAPS 1 tab po TID PREGABALIN 86215463065 No Longer Active Vishal Hui MD Active LORATADINE 10 MG TABS 1 tab po qd LORATADINE 29900493056 No Longer Active Vishal Hui MD Active VERAPAMIL HCL ER 180 MG CR-TABS 1 tab po bid VERAPAMIL HCL 63016735934 No Longer Active Vishal Hui MD Active MIRALAX POWD 1 capfull once daily POLYETHYLENE GLYCOL 3350 83115181370 No Longer Active Vishal Hui MD Active PREDNISONE 20 MG TABS 1 tab po qd PREDNISONE 22707830498 No Longer Active Renzo Thornton DO Active LEVOFLOXACIN 500 MG TABS 1 tab po qd LEVOFLOXACIN 66912004992 No Longer Active Renzo Thornton DO Active BUSPIRONE HCL 15 MG TABS 1 tab po TID BUSPIRONE HCL 95106438621 No Longer Active Renzo Thornton DO Active BENZTROPINE MESYLATE 1 MG TABS 1 tab po qd BENZTROPINE MESYLATE 19191710395 No Longer Active Renzo Thornton DO Active ATENOLOL 25 MG TABS 1 tab po qd ATENOLOL 70525250638 No Longer Active Renzo Thornton DO Active ESCITALOPRAM OXALATE 20 MG TABS 1 tab po qd ESCITALOPRAM OXALATE 16934715292 No Longer Active Renzo Thornton DO Active ADVAIR DISKUS 250-50 MCG/DOSE AEPB 1 puff BID FLUTICASONE-SALMETEROL 42553862941 No Longer Active Renzo Thornton DO Active PREDNISONE 20 MG TAB 2 tabs daily for 3 days, 1 tab daily for 3 days, 1/2 tab daily for 2 days PREDNISONE 18173352774 No Longer Active Vishal Hui MD Active CEFDINIR 300 MG CAPS by mouth twice a day CEFDINIR 58050787256 No Longer Active Vishal Hui MD Active LANSOPRAZOLE 30 MG CPDR 1 cap po qd LANSOPRAZOLE 21891325623 No Longer Active Vishal Hui MD Active BACLOFEN 20 MG TABS 1 tab po tid BACLOFEN 28118350582 No Longer Active Vishal Hui MD Active ADVAIR DISKUS 250-50 MCG/DOSE AEPB 1 puff BID ADVAIR DISKUS 250-50 MCG/DOSE AEPB FLUTICASONE-SALMETEROL Inactive ESCITALOPRAM OXALATE 20 MG TABS 1 tab po qd ESCITALOPRAM OXALATE 20 MG TABS 434323 ESCITALOPRAM OXALATE Inactive ATENOLOL 25 MG TABS 1 tab po qd ATENOLOL 25 MG TABS 496209 ATENOLOL Inactive BENZTROPINE MESYLATE 1 MG TABS 1 tab po qd BENZTROPINE MESYLATE 1 MG TABS 890972 BENZTROPINE MESYLATE Inactive BUSPIRONE HCL 15 MG TABS 1 tab po TID BUSPIRONE HCL 15 MG TABS 045900 BUSPIRONE HCL Inactive LEVOFLOXACIN 500 MG TABS 1 tab po qd LEVOFLOXACIN 500 MG TABS 149704 LEVOFLOXACIN Inactive PREDNISONE 20 MG TABS 1 tab po qd PREDNISONE 20 MG TABS 896493 PREDNISONE Inactive MIRALAX POWD 1 capfull once daily MIRALAX POWD 222226 POLYETHYLENE GLYCOL 3350 Inactive VERAPAMIL HCL ER 180 MG CR-TABS 1 tab po bid VERAPAMIL HCL ER 180 MG CR-TABS VERAPAMIL HCL Inactive LORATADINE 10 MG TABS 1 tab po qd LORATADINE 10 MG TABS 010146 LORATADINE Inactive LYRICA 50 MG CAPS 1 tab po TID LYRICA 50 MG CAPS PREGABALIN Inactive ZALEPLON 10 MG CAPS 1 cap po every other night ZALEPLON 10 MG CAPS 424046 ZALEPLON Inactive SAPHRIS 5 MG SUBL 1 tab po qd SAPHRIS 5 MG SUBL ASENAPINE MALEATE Inactive TRAZODONE HCL 50 MG TABS 1/2 tab po qd prn for anxiety TRAZODONE HCL 50 MG TABS 222833 TRAZODONE HCL Inactive LATUDA 20 MG TABS Take one by mouth daily LATUDA 20 MG TABS LURASIDONE HCL Inactive LISINOPRIL 20 MG TABS 1 tab po qd LISINOPRIL 20 MG TABS 470833 LISINOPRIL Inactive SAPHRIS 10 MG SUBL 1 [...] twice daily BACTRIM DS 800-160 MG TAB 508877 TRIMETHOPRIM-SULFAMETHOXAZOLE Inactive MULTIVITAMINS CAPS Take one by mouth daily MULTIVITAMINS CAPS MULTIPLE VITAMIN Inactive MELATONIN 3 MG CAPS 2 po q hs MELATONIN 3 MG CAPS 415974 MELATONIN Inactive KEFLEX 500 MG ORAL CAPS 1 cap QID by mouth KEFLEX 500 MG ORAL CAPS 288103 CEPHALEXIN Inactive CLINDAMYCIN HCL 150 MG CAPS 1 four times a day CLINDAMYCIN HCL 150 MG CAPS 393353 CLINDAMYCIN HCL Inactive DIFLUCAN 150 MG TAB 1 tablet by mouth daily DIFLUCAN 150 MG TAB 773972 FLUCONAZOLE Inactive PROZAC 20 MG CAP Take one by mouth daily PROZAC 20 MG CAP 658229 FLUOXETINE HCL Inactive IBUPROFEN 600 MG TAB 1 po TID PRN IBUPROFEN 600 MG TAB 423338 IBUPROFEN Inactive VYVANSE 40 MG CAPS 1 daily, VYVANSE 40 MG CAPS LISDEXAMFETAMINE DIMESYLATE Inactive TRAZODONE HCL 100 MG TAB take 1 at bedtime TRAZODONE HCL 100 MG TAB 783603 TRAZODONE HCL Inactive AMITRIPTYLINE HCL 100 MG TAB one at hs AMITRIPTYLINE HCL 100 MG TAB 937450 AMITRIPTYLINE HCL Inactive AMLODIPINE BESYLATE 5 MG TABS 1 tablet by mouth daily AMLODIPINE BESYLATE 5 MG TABS 781644 AMLODIPINE BESYLATE Inactive LATUDA 80 MG TABS Take one by mouth daily LATUDA 80 MG TABS LURASIDONE HCL Inactive SAPHRIS 5 MG SUBL 1 po bid SAPHRIS 5 MG SUBL ASENAPINE MALEATE Inactive PREDNISONE 20 MG TAB 2 tabs daily for 4 days, 1 tab daily for 4 days, 1/2 tab daily for 4 days PREDNISONE 20 MG TAB 851689 PREDNISONE Inactive AMBIEN 5 MG ORAL TABS 1 tab at bedtime AMBIEN 5 MG ORAL TABS 454417 ZOLPIDEM TARTRATE Inactive PROZAC 20 MG ORAL CAPS 1 tab daily PROZAC 20 MG ORAL CAPS 847850 FLUOXETINE HCL Inactive ABILIFY 15 MG ORAL TABS 1 tab daily ABILIFY 15 MG ORAL TABS 056203 ARIPIPRAZOLE Inactive METOPROLOL TARTRATE 50 MG TAB 1 po bid METOPROLOL TARTRATE 50 MG TAB 853694 METOPROLOL TARTRATE Inactive TRAMADOL HCL 50 MG TABS 1-2 po TID PRN Pain TRAMADOL HCL 50 MG TABS 825128 TRAMADOL HCL Inactive PIROXICAM 20 MG CAPS 1 cap po qd PRN Pain PIROXICAM 20 MG CAPS 519589 PIROXICAM Inactive MINIPRESS 2 MG CAPS 4 cap po at night MINIPRESS 2 MG CAPS 904199 PRAZOSIN HCL Inactive MIRALAX PACK 1 po qd PRN Constipation MIRALAX PACK 706055 POLYETHYLENE GLYCOL 3350 Inactive METOPROLOL TARTRATE 25 MG ORAL TABS 1/2 tablet twice daily for heart rate and blood pressure METOPROLOL TARTRATE 25 MG ORAL TABS 139758 METOPROLOL TARTRATE Inactive VALIUM 5 MG TAB Take 1-2 tablets daily VALIUM 5 MG TAB 419728 DIAZEPAM Inactive FLAGYL 500 MG TAB 1 tablet by mouth bid FLAGYL 500 MG TAB 309502 METRONIDAZOLE Inactive DICLOFENAC POTASSIUM TABS Take 1 tablet twice a day (pt. is not sure of the dose.) DICLOFENAC POTASSIUM TABS DICLOFENAC POTASSIUM TABS Inactive ZITHROMAX Z-EARNEST 250 MG TABS 2 today and then 1 daily for 4 days ZITHROMAX Z-EARNEST 250 MG TABS 1367855 AZITHROMYCIN Inactive PREDNISONE 20 MG TABS 2 daily for 5 days then 1 daily for 5 days PREDNISONE 20 MG TABS 566439 PREDNISONE Inactive PROAIR HFA 108 (90 BASE) MCG/ACT AERS 2 puffs four times a day as needed 2015 PROAIR HFA 108 (90 BASE) MCG/ACT AERS ALBUTEROL SULFATE Inactive HYDROCODONE-ACETAMINOPHEN 5-325 MG TABS 1 to 2 four times a day as needed for pain use until can be seen by specialist HYDROCODONE- ACETAMINOPHEN 5-325 MG TABS 485265 HYDROCODONE-ACETAMINOPHEN Inactive TESSALON PERLES 100 MG CAP 1 to 2 tablets by mouth 3 times daily as needed for cough TESSALON PERLES 100 MG CAP 041938 BENZONATATE Inactive CHANTIX STARTING MONTH EARNEST 0.5 [...] Pain 2015 DICLOFENAC SODIUM 50 MG TBEC 791341 DICLOFENAC SODIUM Inactive TOPAMAX 50 MG ORAL TABS 1 tab twice daily TOPAMAX 50 MG ORAL TABS 120231 TOPIRAMATE Inactive VIIBRYD 10 MG ORAL TABS Take 1 tablet once a day VIIBRYD 10 MG ORAL TABS VILAZODONE HCL Inactive LEVOFLOXACIN 500 MG ORAL TABS po daily LEVOFLOXACIN 500 MG ORAL TABS 316873 LEVOFLOXACIN Inactive METHYLPREDNISOLONE 4 MG ORAL TABS po daily METHYLPREDNISOLONE 4 MG ORAL TABS 952030 METHYLPREDNISOLONE Inactive OXYCODONE HCL ER 10 MG ORAL T12A 1/2 tab by mouth every 4 hours prn OXYCODONE HCL ER 10 MG ORAL T12A OXYCODONE HCL Inactive FLAGYL 500 MG TAB 1 tablet by mouth bid FLAGYL 500 MG TAB 584510 METRONIDAZOLE Inactive MONISTAT 7 COMBO PACK WOODROW 100 & 2 MG-% (9GM) VAG KIT 1 applicatorful per vagina q pm x 7 MONISTAT 7 COMBO PACK WOODROW 100 & 2 MG-% (9GM) VAG KIT MICONAZOLE NITRATE Inactive BACTRIM DS 800-160 MG TABS 1 twice a day BACTRIM DS 800-160 MG TABS 679196 SULFAMETHOXAZOLE-TRIMETHOPRIM Inactive TRAMADOL HCL 50 MG TABS 1/2-1 tab TID PRN TRAMADOL HCL 50 MG TABS 186151 TRAMADOL HCL Inactive ABILIFY MAINTENA 400 MG IM SUSR 400mg injection every 26 days ABILIFY MAINTENA 400 MG IM SUSR ARIPIPRAZOLE Inactive KLONOPIN 1 MG ORAL TABS 1 tab po TID KLONOPIN 1 MG ORAL TABS 862309 CLONAZEPAM Inactive ADVAIR DISKUS 250-50 MCG/DOSE INH AEPB 1 puff twice a day for asthma ADVAIR DISKUS 250-50 MCG/DOSE INH AEPB FLUTICASONE- SALMETEROL Inactive BENADRYL 25 MG CAP 4 po at bedtime for insomnia BENADRYL 25 MG CAP DIPHENHYDRAMINE HCL Inactive PREDNISONE 20 MG TABS 2 daily for 5 days then 1 daily for 5 days PREDNISONE 20 MG TABS 248238 PREDNISONE Inactive HYDROCODONE-ACETAMINOPHEN 5-325 MG ORAL TABS 1 tab two times a day HYDROCODONE-ACETAMINOPHEN 5-325 MG ORAL TABS 856261 HYDROCODONE-ACETAMINOPHEN Inactive ZITHROMAX Z-EARNEST 250 MG TABS 2 today and then 1 daily for 4 days ZITHROMAX Z-EARNEST 250 MG TABS 3560268 AZITHROMYCIN Inactive GUAIFENESIN-CODEINE 100-10 MG/5ML SYRP 5ml every 4 to 6 hours as needed for cough GUAIFENESIN-CODEINE 100-10 MG/5ML SYRP 860673 GUAIFENESIN-CODEINE Inactive HALOPERIDOL 10 MG ORAL TABS 1 tab q.d HALOPERIDOL 10 MG ORAL TABS 032406 HALOPERIDOL Inactive ASPIRIN 325 MG ORAL TABS 1 tab q.d ASPIRIN 325 MG ORAL TABS 414066 ASPIRIN Inactive FLUTICASONE PROPIONATE 50 MCG/ACT SUSP 2 sprays each nostril daily before bed. FLUTICASONE PROPIONATE 50 MCG/ACT SUSP 1449888 FLUTICASONE PROPIONATE Inactive ZOFRAN 4 MG TABS 1 po q6hr PRN Nausea ZOFRAN 4 MG TABS 192333 ONDANSETRON HCL Inactive KEFLEX 500 MG CAP 1 po qid KEFLEX 500 MG CAP 332800 CEPHALEXIN Inactive ACETAMINOPHEN-CODEINE 120-12 MG/5ML SOLN 5 ml by mouth every 4-6 hours if needed for cough ACETAMINOPHEN-CODEINE 120-12 MG/5ML SOLN 752069 ACETAMINOPHEN-CODEINE Inactive PREDNISONE 20 MG TAB 1 tablet daily x 4 days PREDNISONE 20 MG TAB 626830 PREDNISONE Inactive TROPICAMIDE 0.5 % OPHTH SOLN 1 drop PRN eye spasms TROPICAMIDE 0.5 % OPHTH SOLN 385174 TROPICAMIDE Inactive LEVAQUIN 500 MG TABS 1 daily for infection LEVAQUIN 500 MG TABS 948647 LEVOFLOXACIN Inactive PREDNISONE 10 MG TABS 2 daily for 5 days then 1 daily for 5 days PREDNISONE 10 MG TABS 455441 PREDNISONE Inactive EQ NICOTINE 21 MG/24HR TRANS PT24 Apply daily to stop smoking EQ NICOTINE 21 MG/24HR TRANS PT24 NICOTINE Inactive DIFLUCAN 150 MG TABS 1 by mouth for yeast DIFLUCAN 150 MG TABS 307506 FLUCONAZOLE Inactive BACTRIM DS 800-160 MG TABS 1 twice a day BACTRIM DS 800-160 MG TABS 19820521 SULFAMETHOXAZOLE-TRIMETHOPRIM Inactive TESSALON PERLES 100 MG CAPS 1 three times a day as needed for cough TESSALON PERLES 100 MG CAPS 648053 BENZONATATE Inactive AMITIZA 8 MCG ORAL CAPS [...] twice a day MUPIROCIN 2 % OINT [id number] MUPIROCIN Inactive CEFDINIR 300 MG CAPS by mouth twice a day CEFDINIR 300 MG CAPS 664849 CEFDINIR Inactive PREDNISONE 20 MG TAB 2 tabs daily for 3 days, 1 tab daily for 3 days, 1/2 tab daily for 2 days PREDNISONE 20 MG TAB 636496 PREDNISONE Inactive BACTRIM DS 800-160 MG TABS [...] x 10 days KEFLEX 500 MG CAP [id number] CEPHALEXIN Inactive Advance Directives Directive Description Start [...] mean corpuscular hemoglobin, RBC 31.4 pg 27.0-33.0 leukocyte count, blood 16.6 THOUSAND/UL 10*3/mm3 3.8-10.8 mean corpuscular hemoglobin concentration, RBC 32.8 G/DL % 32.0- 36.0 red blood cell distribution width 12.9 % 11.0-15.0 platelet count 443 THOUSAND/UL 10*3/mm3 076-563 6187/03/01 mean platelet volume 8.2 fL 7.5-12.5 erythrocyte (RBC) count 4.46 MILLION/UL 10*6/mm3 3.80-5.10 hemoglobin, blood 13.3 g/dL 11.7-15.5 hematocrit, blood 40.7 % 35.0-45.0 mean corpuscular volume, RBC 91.4 fL 80.0-100.0 mean corpuscular hemoglobin, RBC 29.9 pg 27.0-33.0 leukocyte count, blood 8.4 THOUSAND/UL 10*3/mm3 3.8-10.8 mean corpuscular hemoglobin concentration, RBC 33.9 G/DL % 32.0- 36.0 red blood cell distribution width 13.3 % 11.0-15.0 platelet count 349 THOUSAND/UL 10*3/mm3 795-978 3773/04/12 mean platelet volume 8.4 fL 7.5-12.5 Lab [...] 369 10^3/MM^3 10*3/mm3 142-424 Lab Report: Chlamydia/GC APTIMA/32218 - Lab chlamydia DNA probe NOT DETECTED NOT DETECTED Lab Report: Chlamydia/GC APTIMA/82931 - Microbiology Neisseria gonorrhoeae DNA probe NOT DETECTED NOT DETECTED Lab Report: Chlamydia/GC APTIMA/60448, Urinalysis, Complete, with Reflex ... - Lab chlamydia DNA probe NOT DETECTED NOT DETECTED Lab Report: Chlamydia/GC APTIMA/33109, Urinalysis, Complete, with Reflex ... - Microbiology Neisseria gonorrhoeae DNA probe NOT DETECTED NOT DETECTED Lab Report: Chlamydia/GC APTIMA/72897, Urinalysis, Complete, with Reflex ... - Urinalysis [...] 33.7 mmol/L 21.0-32.0 sodium, serum 140 mmol/L 743-392 5574/06/28 creatinine, serum 0.86 mg/dL 0.55-1.30 alanine aminotransferase (SGPT), serum 38 U/L 12-78 aspartate aminotransferase (SGOT), serum 17 U/L 15-37 calcium, serum 9.3 mg/dL 8.5-10.1 bilirubin, serum, total 0.20 mg/dL 0.00-1.00 sodium, serum 140 mmol/L 525-632 7831/06/28 carbon dioxide, venous blood 23.8 mmol/L 21.0-32.0 [...] 5.0-8.5 Encounters Code Encounter Date Provider Facility CPT-03909 Level 3 Est. Patient 15:55:20 [facility] Patient 10:49:34 CDT Suzan [facility] CPT-64777 Level 3 Est. Patient 10:00:25 CDT Suzan ShannonFormerly named [facility] CPT-44385 Level 3 Est. Patient 10:29:30 CDT Suzan RajeevFormerly named [facility] CPT-86300 Level 3 Est. Patient 11:04:38 CDT Renzo Thornton [facility] CPT-98860 Level 3 Est. Patient 11:15:58 CALCULUS TUTOR Renzo Thornton [facility] CPT-84917 Level 3 Est. Patient 15:28:23 CALCULUS TUTOR Suzan Boo [facility] [place][note 2] CPT-10035 Level 4 Est. Patient 10:20:54 CALCULUS TUTOR Suzan Boo [facility] [place][note 2] CPT-31645 Level 3 Est. Patient 11:47:37 CALCULUS TUTOR Ahmet Carbajal MD [facility] CPT-27518 Level 3 Est. Patient 10:40:11 CALCULUS TUTOR Ahmet Carbajal MD [facility] CPT-60979 Level 3 Est. Patient 15:07:06 CALCULUS TUTOR Neeraj Collins MD [facility] CPT-04291 Level 4 Est. Patient 14:45:00 CALCULUS TUTOR Ahmet Carbajal MD [facility] CPT-49759 Level 3 Est. Patient 13:59:59 CDT Luigi Martínez [facility]-37850 Level 3 Est. Patient 18:18:53 CDT Neeraj Collins MD [facility] CPT-50804 Level 3 Est. Patient 15:50:44 CDT Vishal Hui MD [facility] CPT-13457 Level 3 Est. Patient 11:36:17 CDT Ahmet Carbajal MD [facility] CPT-58270 Level 3 Est. Patient 13:29:16 CDT Vishal Hui MD [facility] CPT-31245 Level 3 Est. Patient 14:27:52 CDT Neeraj Collins MD [facility] CPT-29499 Level 3 Est. Patient 08:56:03 CDT Luigi Martínez [facility] [place][note 2] CPT-12377 Level 4 Est. Patient 12:11:48 CDT Fabiola Johnson [facility] [place][note 2] CPT-76292 Level 3 New Patient 16:53:37 CDT Albert Caldera MD [facility] CPT-12531 Level 3 Est. Patient 11:25:49 CDT Renzo Thornton DO [facility] CPT-13270 Level 3 Est. Patient 15:22:01 CDT Ahmet Carbajal MD [facility] CPT-39660 Level 4 Est. Patient 09:00:51 CALCULUS TUTOR Vishal Hui MD [facility] CPT-79841 Level 3 Est. Patient 11:37:33 CALCULUS TUTOR Vishal Hui MD [facility] CPT-20942 Level 3 Est. Patient 08:41:09 CALCULUS TUTOR Vishal Hui MD [facility] CPT-94430 Level 4 Est. Patient 10:19:35 CALCULUS TUTOR Vishal Hui MD [facility] CPT-84858 Level 3 Est. Patient 13:35:45 CDT Vishal Hui MD [facility] CPT-00233 Level 4 Est. Patient 10:08:37 CDT Vishal Hui MD [facility] CPT-95211 Level 3 Est. Patient 11:22:10 CDT Vishal Hui MD [facility] CPT-23637 Level 3 Est. Patient 11:03:32 CDT Sahara Rodriguez MD [facility]-56151 Level 3 Est. Patient 09:41:35 CDT Vishal Hui MD [facility]-79418 Level 3 Est. Patient 12:00:41 CDT Neeraj Collins MD [facility]-98795 Level 3 Est. Patient 09:16:24 CDT Vishal Hui MD [facility] CPT-17199 Level 4 Est. Patient 13:59:09 CDT Neeraj Collins MD [facility]-48946 Level 3 Est. Patient 15:19:43 CDT Rezno Thornton DO [facility] CPT-78446 Level 3 Est. Patient 18:10:26 CDT Sahara Rodriguez MD [facility]-45904 Level 3 Est. Patient 14:49:50 CDT Vishal Hui MD [facility] CPT-12588 Level 4 Est. Patient 18:41:46 CDT Neeraj Collins MD [facility]-86315 Level 4 Est. Patient 09:18:38 CALCULUS TUTOR Vishal Hui MD [facility] CPT-02339 Level 3 Est. Patient 14:43:55 CALCULUS TUTOR Vishal Hui MD [facility] CPT-56662 Level 3 Est. Patient 15:26:33 CALCULUS TUTOR Sahara Rodriguez MD [facility] CPT-89201 Level 3 Est. Patient 10:32:14 CALCULUS TUTOR Vishal Hui MD [facility]-47031 Level 3 Est. Patient 15:12:52 CALCULUS TUTOR Vishal Hui MD [facility] CPT-41464 Level 4 Est. Patient 09:19:27 CDT Vishal Hui MD [facility]-08871 Level 3 Est. Patient 15:53:00 CDT Renzo Thornton [facility] CPT-72465 Level 3 Est. Patient 15:50:30 CDT Renzo Thornton [facility] CPT-73785 Level 3 Est. Patient 16:55:24 CDT Vishal Hui MD [facility] Procedures Code Procedure Name Date Entry Date Standard Description CPT-91861 EKG Trac and Interp - XRAY USE ONLY 15:59:30 CDT 09/13 CPT-72660 Chest 1V Frontal - XRAY USE ONLY 15:59:30 CDT CPT-23221 Venipuncture Draw Fee 15:44:02 CDT CPT-53844 Venipuncture Draw Fee 08:41:12 CDT CPT-54678 Abd compl w upright - XRAY USE ONLY 10:27:59 CDT 06/28 CPT-10842 Smoking Cessation counseling 11:15:58 CALCULUS TUTOR CPT-G0439 Subsequent Annual Wellness Exam 09:30:58 CALCULUS TUTOR CPT-92497 TSH - LAB USE ONLY 08:50:26 CALCULUS TUTOR CPT-16856 CBC - LAB USE ONLY 08:50:26 CALCULUS TUTOR CPT-08658 Venipuncture Draw Fee 08:50:26 CALCULUS TUTOR CPT-75107 Abx/Therapy Injection 17:34:30 CALCULUS TUTOR CPT-22762 Nexplanon Removal with Reinsertion 14:09:32 CDT CPT-J7307 Nexplanon (Implant) 14:09:32 CDT CPT-OV Office Visit 14:09:32 CDT CPT-58863 UA w micro - LAB USE ONLY 16:21:13 CDT CPT-60012 [place] - LAB USE ONLY 16:21:13 CDT CPT-28143 First Vx - Ix admin for Medicare patients 14:37:47 CDT CPT-63622 Fluzone Preservative Free Intramuscular Suspension 14:37 :47 CDT CPT-68518 Abx/Therapy Injection 13:54:22 CDT CPT-84232 Abx/Therapy Injection 08:47:09 CDT CPT-48666 Abx/Therapy Injection 13:29:56 CDT CPT-15492 Abx/Therapy Injection 08:36:16 CDT CPT-88763 [place] - LAB USE ONLY 17:44:58 CDT CPT-65397 UA w micro - LAB USE ONLY 17:44:58 CDT CPT-13294 CMP - LAB USE ONLY 17:44:58 CDT CPT-98113 Venipuncture Draw Fee 17:44:58 CDT CPT-79180 Cervical Min 4V - XRAY USE ONLY 09:01:40 CDT CPT-81856 Chest 2V Frontal and Lat - XRAY USE ONLY 11:06:31 CDT CPT-22817 EKG Trac and Interp - XRAY USE ONLY 11:31:43 CDT 08/26 CPT-J3420 Vitamin B12 1000mcg (Cyanocobalamin) 08:10:26 CALCULUS TUTOR 04/12 CPT-33537 Abx/Therapy Injection 08:10:26 CALCULUS TUTOR CPT-G0438 Initial Annual Wellness Exam 19:01:01 CALCULUS TUTOR CPT-J3420 Vitamin B12 1000mcg (Cyanocobalamin) 16:57:46 CDT 08/14 CPT-17274 Recombivax HB Injection Suspension 5 MCG/0.5ML 08:37:50 CALCULUS TUTOR CPT-47487 Immunization Single Admin 08:37:50 CALCULUS TUTOR CPT-J3420 Vitamin B12 1000mcg (Cyanocobalamin) 08:32:16 CALCULUS TUTOR 03/11 CPT-94575 Abx/Therapy Injection 08:32:16 CALCULUS TUTOR CPT-12336 Chest 2V Frontal and Lat 11:46:38 CALCULUS TUTOR CPT-79530 Venipuncture Draw Fee 09:12:45 CALCULUS TUTOR CPT-J3420 Vitamin B12 1000mcg (Cyanocobalamin) 08:50:15 CALCULUS TUTOR 02/08 CPT-07996 Abx/Therapy Injection 08:50:15 CALCULUS TUTOR CPT-Cryo Cryotherapy 10:19:35 CALCULUS TUTOR CPT-000 Give Appropriate Flu Vaccine 09:22:16 CDT CPT-J3420 Vitamin B12 1000mcg (Cyanocobalamin) 19:08:57 CDT 01/11 CPT-16125 Abx/Therapy Injection 19:08:57 CDT CPT-J3420 Vitamin B12 1000mcg (Cyanocobalamin) 08:19:08 CDT 12/11 CPT-96557 Abx/Therapy Injection 08:19:08 CDT CPT-J3420 Vitamin B12 1000mcg (Cyanocobalamin) 14:48:00 CDT 11/09 CPT-65492 Abx/Therapy Injection 14:47:59 CDT CPT-J3420 Vitamin B12 1000mcg (Cyanocobalamin) 08:34:04 CDT 10/09 CPT-59773 Abx/Therapy Injection 08:34:04 CDT CPT-J3420 Vitamin B12 1000mcg (Cyanocobalamin) 09:18:52 CDT 09/11 CPT-27688 Abx/Therapy Injection 09:18:52 CDT CPT-J3420 Vitamin B12 1000mcg (Cyanocobalamin) 08:35:44 CDT 09/04 CPT-65686 Abx/Therapy Injection 08:35:44 CDT CPT-59042 Immunization Single Admin 11:07:16 CDT CPT-88409 Hepatitis B adult IM 11:07:16 CDT CPT-J3420 Vitamin B12 1000mcg (Cyanocobalamin) 11:00:49 CDT 08/28 CPT-J1040 Depo Medrol 80 mg (Methyl Prednisolone Acetate) 11:00: 49 CDT CPT-78896 Abx/Therapy Injection 11:00:49 CDT CPT-J1040 Depo Medrol 80 mg (Methyl Prednisolone Acetate) 09:16: 23 CDT CPT-J3420 Vitamin B12 1000mcg (Cyanocobalamin) 08:27:05 CDT 08/20 CPT-71509 Abx/Therapy Injection 08:27:05 CDT CPT-91076 Recombivax HB Injection Suspension 5 MCG/0.5ML 10:00:41 CDT CPT-48906 Administration single or combination vaccine inc oral 10 :00:41 CDT CPT-53653 Sono transvag pelvis non OB uterus ovaries cervix 16:36: 57 CDT CPT-55386 LS spine comp w obliq 09:50:55 CALCULUS TUTOR CPT-29731 Abd compl w upright 09:50:55 CALCULUS TUTOR CPT-J1100 Decadron 4mg (Dexamethasone) 15:51:24 CALCULUS TUTOR CPT-J1030 Depo Medrol 40 mg (Methyl Prednisolone Acetate) 15:51: 24 CALCULUS TUTOR CPT-01712 Abx/Therapy Injection 15:51:24 CALCULUS TUTOR CPT-J1100 Decadron 4mg (Dexamethasone) 15:26:33 CALCULUS TUTOR CPT-J1030 Depo Medrol 40 mg (Methyl Prednisolone Acetate) 15:26: 33 CALCULUS TUTOR CPT-61342 Sono retroperitoneal complete kidneys and bladder 17:15: 30 CDT CPT-54329 Abd compl w upright 16:09:25 CDT CPT-J1100 Decadron 8mg (Dexamethasone) 17:07:57 CDT CPT-61273 Abx/Therapy Injection 17:07:57 CDT CPT-J1100 Decadron 8mg (Dexamethasone) 16:55:24 CDT CPT-49118 Chest 2V Frontal and Lat 16:32:44 CDT
--- OUTSIDE RECORDS SUMMARY | 2016-11-04 20:57 | XMS REPORT | Clinical Summary ---
Author Author Admin, E Organization [employer] Address Unknown Phone Unavailable Allergies, Adverse Reactions, [...] Collins MD Candidiasis of vulva and vagina Pneumonia, organism unspecified ICD-486 Inactive Vishal Hui MD Flank pain, right ICD-789.09 Inactive Vishal Hui MD Abdominal pain ICD-789.00 Inactive Visahl Hui MD Cellulitis ICD-682.9 Inactive Vishal Hui MD Pelvic pain ICD-625.9 Inactive Vishal Hui MD Abscess, skin ICD-682.9 Inactive Vishal Hui MD Medication List Medication Instructions Start Date Stop Date Generic Name NDC Status Provider Patient Instruction DIFLUCAN 150 MG TAB 1 tablet by mouth daily FLUCONAZOLE 10391776555 Active Neeraj Collins MD Active TIZANIDINE HCL 4 MG TABS 1 po q6hr PRN Muscle Spasm/Back Pain TIZANIDINE HCL 13121639370 Active Vishal Hui MD Active CLINDAMYCIN HCL 150 MG CAPS 1 four times a day CLINDAMYCIN HCL 91335057274 No Longer Active Neeraj Collins MD Active KEFLEX 500 MG ORAL CAPS 1 cap QID by mouth CEPHALEXIN 82510304503 No Longer Active Neeraj Collins MD Active DIFLUCAN 150 MG TABS 1 pill every other day x 2 doses FLUCONAZOLE 52243528192 No Longer Active Sahara Rodriguez MD PhD Active MELATONIN 3 MG CAPS 2 po q hs MELATONIN 14231294066 No Longer Active Sahara Rodriguez MD PhD Active MULTIVITAMINS CAPS Take one by mouth daily MULTIPLE VITAMIN 95281767455 No Longer Active Sahara Rodriguez MD PhD Active BACTRIM DS 800-160 MG TAB 1 tab by mouth twice daily TRIMETHOPRIM-SULFAMETHOXAZOLE 88169080208 No Longer Active Sahara Rodriguez MD PhD Active [employer] PROBIOTIC ORAL CHEW 2 daily po PROBIOTIC PRODUCT 80580479081 No Longer Active Sahara Rodriguez MD PhD Active IBUPROFEN 600 MG TAB 1 po TID PRN IBUPROFEN 36947923136 Active Luigi Martínez 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 Active BACTRIM DS 800-160 MG TABS 1 po BID x 7 days SULFAMETHOXAZOLE-TRIMETHOPRIM 07107937468 No Longer Active Vishal Hui MD Active CHANTIX STARTING MONTH EARNEST 0.5 MG X 11 & 1 MG X 42 TABS 0.5mg daily for 3 days , then 0.5mg BID for 4 days, then 1mg BID VARENICLINE TARTRATE 54425041222 No Longer Active TAMARA Gray Active METOPROLOL TARTRATE 50 MG TAB 1 po bid METOPROLOL TARTRATE 81318122541 Active Vishal Hui MD Active TRAZODONE HCL 100 MG TAB take 1 at bedtime TRAZODONE HCL 63778431709 Active Vishal Hui MD Active AMLODIPINE BESYLATE 5 MG TABS 1 tablet by mouth daily AMLODIPINE BESYLATE 46045673770 Active Vishal Hui MD Active VERAPAMIL HCL CR 120 MG TAB CR 1 po bid VERAPAMIL HCL 75847939122 No Longer Active Vishal Hui MD Active METOPROLOL SUCCINATE 50 MG TB24 1 tablet by mouth daily METOPROLOL SUCCINATE 67378802711 No Longer Active Vishal Hui MD Active TRAMADOL HCL 50 MG TABS 1-2 po TID PRN Pain TRAMADOL HCL 21020462059 Active Vishal Hui MD Active SAPHRIS 5 MG SUBL 1 po bid ASENAPINE MALEATE 91210114956 Active Vishal Hui MD Active SAPHRIS 10 MG SUBL 1 tab po bid ASENAPINE MALEATE 11579662202 No Longer Active Vishal Hui MD Active LISINOPRIL 20 MG TABS 1 tab po qd LISINOPRIL 03716545162 No Longer Active Vishal Hui MD Active BENADRYL 25 MG CAP 2 po tid prn anxiety DIPHENHYDRAMINE HCL 82300754712 Active Vishal Hui MD Active LATUDA 80 MG TABS Take one by mouth daily LURASIDONE HCL 09935814533 Active Vishal Hui MD Active LATUDA 20 MG TABS Take one by mouth daily LURASIDONE HCL 61418085919 No Longer Active Vishal Hui MD Active TRAZODONE HCL 50 MG TABS 1/2 tab po qd prn for anxiety TRAZODONE HCL 98374803065 No Longer Active Vishal Hui MD Active PIROXICAM 20 MG CAPS 1 cap po qd PRN Pain PIROXICAM 88085360243 Active Vishal Hui MD Active OMEPRAZOLE 20 MG TBEC 1 po q a.m. 30min prior to first food intake OMEPRAZOLE 72306390252 Active Vishal Hui MD Active RANITIDINE HCL 150 MG CAPS 1 twice a day RANITIDINE HCL 85073989082 Active Vishal Hui MD Active PROZAC 20 MG CAP Take one by mouth daily FLUOXETINE HCL 62224760115 Active Vishal Hui MD Active LINZESS 290 MCG CAPS Take one by mouth daily LINACLOTIDE 32747246403 Active Vishal Hui MD Active SAPHRIS 5 MG SUBL 1 tab po qd ASENAPINE MALEATE 78881333663 No Longer Active Vishal Hui MD Active ZALEPLON 10 MG CAPS 1 cap po every other night ZALEPLON 19204493563 No Longer Active Vishal Hui MD Active LYRICA 50 MG CAPS 1 tab po TID PREGABALIN 90588443699 No Longer Active Vishal Hui MD Active LORATADINE 10 MG TABS 1 tab po qd LORATADINE 09743777914 No Longer Active Vishal Hui MD Active VERAPAMIL HCL ER 180 MG CR-TABS 1 tab po bid VERAPAMIL HCL 25279598782 No Longer Active Vishal Hui MD Active MIRALAX POWD 1 capfull once daily POLYETHYLENE GLYCOL 3350 57133642145 No Longer Active Vishal Hui MD Active PREDNISONE 20 MG TABS 1 tab po qd PREDNISONE 72771881043 No Longer Active Renzo Thornton DO Active LEVOFLOXACIN 500 MG TABS 1 tab po qd LEVOFLOXACIN 91121153402 No Longer Active Renzo Thornton DO Active BUSPIRONE HCL 15 MG TABS 1 tab po TID BUSPIRONE HCL 34542608837 No Longer Active Renzo Thornton DO Active BENZTROPINE MESYLATE 1 MG TABS 1 tab po qd BENZTROPINE MESYLATE 65545609748 No Longer Active Renzo Thornton DO Active ATENOLOL 25 MG TABS 1 tab po qd ATENOLOL 47630855019 No Longer Active Renzo Thornton DO Active ESCITALOPRAM OXALATE 20 MG TABS 1 tab po qd ESCITALOPRAM OXALATE 62205635212 No Longer Active Renzo Thornton DO Active ADVAIR DISKUS 250-50 MCG/DOSE AEPB 1 puff BID FLUTICASONE-SALMETEROL 69153335645 No Longer Active Renzo Thornton DO Active PREDNISONE 20 MG TAB 2 tabs daily for 3 days, 1 tab daily for 3 days, 1/2 tab daily for 2 days PREDNISONE 76085684971 No Longer Active Vishal Hui MD Active CEFDINIR 300 MG CAPS by mouth twice a day CEFDINIR 12938498481 No Longer Active Vishal Hui MD Active LANSOPRAZOLE 30 MG CPDR 1 cap po qd LANSOPRAZOLE 49973019352 No Longer Active Vishal Hui MD Active TOPAMAX 25 MG TABS 1 tab po bid TOPIRAMATE 35358369261 Active Vishal Hui MD Active MINIPRESS 2 MG CAPS 1 cap po at night PRAZOSIN HCL 61892283443 Active Vishal Hui MD Active BACLOFEN 20 MG TABS 1 tab po tid BACLOFEN 00652553319 No Longer Active Vishal Hui MD Active ADVAIR DISKUS 250-50 MCG/DOSE AEPB 1 puff BID ADVAIR DISKUS 250-50 MCG/DOSE AEPB FLUTICASONE-SALMETEROL Inactive ESCITALOPRAM OXALATE 20 MG TABS 1 tab po qd ESCITALOPRAM OXALATE 20 MG TABS 142434 ESCITALOPRAM OXALATE Inactive ATENOLOL 25 MG TABS 1 tab po qd ATENOLOL 25 MG TABS 328543 ATENOLOL Inactive BENZTROPINE MESYLATE 1 MG TABS 1 tab po qd BENZTROPINE MESYLATE 1 MG TABS 584808 BENZTROPINE MESYLATE Inactive BUSPIRONE HCL 15 MG TABS 1 tab po TID BUSPIRONE HCL 15 MG TABS 789925 BUSPIRONE HCL Inactive LEVOFLOXACIN 500 MG TABS 1 tab po qd LEVOFLOXACIN 500 MG TABS 574323 LEVOFLOXACIN Inactive PREDNISONE 20 MG TABS 1 tab po qd PREDNISONE 20 MG TABS 277870 PREDNISONE Inactive MIRALAX POWD 1 capfull once daily MIRALAX POWD 740529 POLYETHYLENE GLYCOL 3350 Inactive VERAPAMIL HCL ER 180 MG CR-TABS 1 tab po bid VERAPAMIL HCL ER 180 MG CR-TABS VERAPAMIL HCL Inactive LORATADINE 10 MG TABS 1 tab po qd LORATADINE 10 MG TABS 688738 LORATADINE Inactive LYRICA 50 MG CAPS 1 tab po TID LYRICA 50 MG CAPS PREGABALIN Inactive ZALEPLON 10 MG CAPS 1 cap po every other night ZALEPLON 10 MG CAPS 213196 ZALEPLON Inactive SAPHRIS 5 MG SUBL 1 tab po qd SAPHRIS 5 MG SUBL ASENAPINE MALEATE Inactive TRAZODONE HCL 50 MG TABS 1/2 tab po qd prn for anxiety TRAZODONE HCL 50 MG TABS 376083 TRAZODONE HCL Inactive LATUDA 20 MG TABS Take one by mouth daily LATUDA 20 MG TABS LURASIDONE HCL Inactive LISINOPRIL 20 MG TABS 1 tab po qd LISINOPRIL 20 MG TABS 375211 LISINOPRIL Inactive SAPHRIS 10 MG SUBL 1 [...] po q hs MELATONIN 3 MG CAPS 259358 MELATONIN Inactive KEFLEX 500 MG ORAL CAPS 1 cap QID by mouth KEFLEX 500 MG ORAL CAPS 948653 CEPHALEXIN Inactive CLINDAMYCIN HCL 150 MG CAPS 1 four times a day CLINDAMYCIN HCL 150 MG CAPS 529890 CLINDAMYCIN HCL Inactive CEFDINIR 300 MG CAPS by mouth twice a day CEFDINIR 300 MG CAPS 312365 CEFDINIR Inactive PREDNISONE 20 MG TAB 2 tabs daily for 3 days, 1 tab daily for 3 days, 1/2 tab daily for 2 days PREDNISONE 20 MG TAB 122800 PREDNISONE Inactive BACTRIM DS 800-160 MG TABS 1 po BID x 7 days BACTRIM DS 800-160 MG TABS SULFAMETHOXAZOLE-TRIMETHOPRIM Inactive DIFLUCAN 150 MG TABS 1 pill every other day x 2 doses DIFLUCAN 150 MG TABS 014793 FLUCONAZOLE Inactive Vital Signs Date Name Value [...] U/L Chart Maintenance: outside labs entered on [employer] - Hematology leukocyte count, blood 8.9 10*3/mm3 hemoglobin, blood 13.2 g/dL platelet count 364 10*3/mm3 Lab Report: CBC, Comp. Metabolic Panel, Free Thyroxine (L), Thyroid Stim ... - Chemistry sodium, serum 140 mmol/L 833-359 4744/05/28 potassium, serum 4.2 mmol/L 3.5-5.2 chloride, serum [...] Panel - Chemistry sodium, serum 141 mmol/L 098-179 3957 potassium, serum 4.3 mmol/L 3.5-5.2 chloride, serum [...] Panel - Chemistry sodium, serum 139 mmol/L 605-334 5496/12/31 potassium, serum 4.8 mmol/L 3.5-5.2 chloride, serum 106 mmol/L 98-107 carbon dioxide, venous blood 24.3 mmol/L 21.0-32.0 blood glucose 90 mg/dL 65-110 urea nitrogen, blood 16 mg/dL 7-18 creatinine, serum 1.00 mg/dL 0.60-1.30 alanine aminotransferase (SGPT), serum 41 U/L -78 aspartate aminotransferase (SGOT), serum 17 U/L 15-37 calcium, serum 8.6 mg/dL 8.5-10.1 bilirubin, serum, total 0.30 mg/dL 0.00-1.00 cholesterol, serum 108 mg/dL 460-582 4833/12/31 triglyceride, serum, fasting 120 mg/dL 30-200 HDL [...] semiquantitative 7.0 5.0-8.5 Lab Report: Varicella-Zoater Inga IgG,IgM/65732, HEP Be Antibody/556, RUB ... - Serology rubella antibody, serum, IgG 2.88 Encounters Code Encounter Date Provider Facility [facility]-[id number] Level 3 Est. Patient 12:00:41 CDT Neeraj Collins MD [facility] CPT-00578 Level 3 Est. Patient 09:16:24 CDT Vishal Hui MD [facility]-18662 Level 4 Est. Patient 13:59:09 CDT Neeraj Collins MD [facility] CPT-73082 Level 3 Est. Patient 15:19:43 CDT Renzo Thornton DO [facility] CPT-21869 Level 3 Est. Patient 18:10:26 CDT Sahara Rodriguez MD PhD [facility] CPT-56958 Level 3 Est. Patient 14:49:50 CDT Vishal Hui MD [facility]-09121 Level 4 Est. Patient 18:41:46 CDT Neeraj Collins MD [facility]-99834 Level 4 Est. Patient 09:18:38 AGILITY INSTRUCTOR Vishal Hui MD [facility]-93799 Level 3 Est. Patient 14:43:55 AGILITY INSTRUCTOR Vishal Hui MD [facility] CPT-73227 Level 3 Est. Patient 15:26:33 AGILITY INSTRUCTOR Sahara Rodriguez MD PhD [facility] CPT-60798 Level 3 Est. Patient 10:32:14 AGILITY INSTRUCTOR Vishal Hui MD [facility] CPT-64952 Level 3 Est. Patient 15:12:52 AGILITY INSTRUCTOR Vishal Hui MD [facility] CPT-42896 Level 4 Est. Patient 09:19:27 CDT Vishal Hui MD [facility] CPT-75673 Level 3 Est. Patient 15:53:00 CDT Renzo Thornton [facility] CPT-71767 Level 3 Est. Patient 15:50:30 CDT Renzo Thornton [facility] CPT-35363 Level 3 Est. Patient 16:55:24 CDT Vishal Hui MD [facility] Procedures Code Procedure Name Date Entry Date Standard Description CPT-J3420 Vitamin B12 1000mcg (Cyanocobalamin) 09:18:52 CDT 09/11 CPT-73256 Abx/Therapy Injection 09:18:52 CDT CPT-J3420 Vitamin B12 1000mcg (Cyanocobalamin) 08:35:44 CDT 09/04 CPT-54392 Abx/Therapy Injection 08:35:44 CDT CPT-12541 Immunization Single Admin 11:07:16 CDT CPT-11871 Hepatitis B adult IM 11:07:16 CDT CPT-J3420 Vitamin B12 1000mcg (Cyanocobalamin) 11:00:49 CDT 08/28 CPT-J1040 Depo Medrol 80 mg (Methyl Prednisolone Acetate) 11:00: 49 CDT CPT-49006 Abx/Therapy Injection 11:00:49 CDT CPT-J1040 Depo Medrol 80 mg (Methyl Prednisolone Acetate) 09:16: 23 CDT CPT-J3420 Vitamin B12 1000mcg (Cyanocobalamin) 08:27:05 CDT 08/20 CPT-33593 Abx/Therapy Injection 08:27:05 CDT CPT-51197 Recombivax HB Injection Suspension 5 MCG/0.5ML 10:00:41 CDT CPT-81094 Administration single or combination vaccine inc oral 10 :00:41 CDT CPT-56725 Sono transvag pelvis non OB uterus ovaries cervix 16:36: 57 CDT CPT-18123 LS spine comp w obliq 09:50:55 AGILITY INSTRUCTOR CPT-56918 Abd compl w upright 09:50:55 AGILITY INSTRUCTOR CPT-J1100 Decadron 4mg (Dexamethasone) 15:51:24 AGILITY INSTRUCTOR CPT-J1030 Depo Medrol 40 mg (Methyl Prednisolone Acetate) 15:51: 24 AGILITY INSTRUCTOR CPT-61183 Abx/Therapy Injection 15:51:24 AGILITY INSTRUCTOR CPT-J1100 Decadron 4mg (Dexamethasone) 15:26:33 AGILITY INSTRUCTOR CPT-J1030 Depo Medrol 40 mg (Methyl Prednisolone Acetate) 15:26: 33 AGILITY INSTRUCTOR CPT-88814 Sono retroperitoneal complete kidneys and bladder 17:15: 30 CDT CPT-59140 Abd compl w upright 16:09:25 CDT CPT-J1100 Decadron 8mg (Dexamethasone) 17:07:57 CDT CPT-69543 Abx/Therapy Injection 17:07:57 CDT CPT-J1100 Decadron 8mg (Dexamethasone) 16:55:24 CDT CPT-35122 Chest 2V Frontal and Lat 16:32:44 CDT
--- OUTSIDE RECORDS SUMMARY | 2016-11-04 21:00 | XMS REPORT | Clinical Summary ---
Author Author Admin, [employer] Organization [facility] Address Unknown Phone Unavailable Allergies, Adverse Reactions, [...] chest pain Localized adiposity 278.1 Active Albert Caldear MD Localized adiposity Shortness of breath 786.05 Active Fabiola Johnson [employer] Shortness of breath Nocturnal hypoxia 799.02 Active Fabiola Johnson [employer] Hypoxemia Neck pain 723.1 Active Luigi Martínez [employer] Cervicalgia Anxiety Disorder ICD-300.00 Inactive Vishal Hui [...] each nostril daily before bed. FLUTICASONE PROPIONATE 23625283386 Active Fabiola Johnson APRN Active VERAPAMIL HCL ER 120 MG ORAL CR-TABS 1 tab po daily for blood pressure 09/27 VERAPAMIL HCL 73415848563 Active Fabiola Johnson APRN Active ADZENYS XR-ODT 6.3 MG ORAL TBED 1 tab po daily for ADHD AMPHETAMINE 40645222341 Active Fabiola Johnson APRN Active BENADRYL 25 MG CAP 4 po at bedtime for insomnia DIPHENHYDRAMINE HCL 23401477914 Active Fabiola Johnson APRN Active KLONOPIN 1 MG ORAL TABS 1 tab po TID CLONAZEPAM 08805617207 Active Fabiola Johnson APRN Active VALIUM 5 MG TAB Take 1-2 tablets daily DIAZEPAM 54507763577 No Longer Active Fabiola Johnson APRN Active METOPROLOL TARTRATE 25 MG ORAL TABS 1/2 tablet twice daily for heart rate and blood pressure METOPROLOL TARTRATE 37970865738 No Longer Active Fabiola Johnson APRN Active MIRALAX ORAL POWD 17GMS DAILY IN WATER POLYETHYLENE GLYCOL 3350 72154117226 Active Vishal Hui MD Active VIIBRYD 10 MG ORAL TABS Take 1 tablet once a day VILAZODONE HCL 94221509163 Active Ahmet Carbajal MD Active DICLOFENAC POTASSIUM TABS Take 1 tablet twice a day (pt. is not sure of the dose.) DICLOFENAC POTASSIUM TABS 63645010874 Active Ahmet Carbajal MD Active MIRALAX PACK 1 po qd PRN Constipation POLYETHYLENE GLYCOL 3350 45611432882 No Longer Active Ahmet Carbajal MD Active MINIPRESS 2 MG CAPS 4 cap po at night PRAZOSIN HCL 74103425966 No Longer Active Ahmet Carbajal MD Active PIROXICAM 20 MG CAPS 1 cap po qd PRN Pain PIROXICAM 96111843374 No Longer Active Ahmet Carbajal MD Active TRAMADOL HCL 50 MG TABS 1-2 po TID PRN Pain TRAMADOL HCL 17049222823 No Longer Active Ahmet Carbajal MD Active METOPROLOL TARTRATE 50 MG TAB 1 po bid METOPROLOL TARTRATE 55712853753 No Longer Active Ahmet Carbajal MD Active ABILIFY 15 MG ORAL TABS 1 tab daily ARIPIPRAZOLE 73299645912 No Longer Active Ahmet Carbajal MD Active PROZAC 20 MG ORAL CAPS 1 tab daily FLUOXETINE HCL 03419243031 No Longer Active Ahmet Carbajal MD Active AMBIEN 5 MG ORAL TABS 1 tab at bedtime ZOLPIDEM TARTRATE 89470360243 No Longer Active Ahmet Carbajal MD Active PREDNISONE 20 MG TAB 2 tabs daily for 4 days, 1 tab daily for 4 days, 1/2 tab daily for 4 days PREDNISONE 75124744696 No Longer Active Ahmet Carbajal MD Active KEFLEX 500 MG CAP 1 po TID x 10 days CEPHALEXIN 70026558479 No Longer Active Vishal Hui MD Active ABILIFY MAINTENA 400 MG IM SUSR Injection once per month ARIPIPRAZOLE 79581081637 Active Juliet Kimbrough APRN Active IMITREX 50 MG ORAL TABS 1/2 tab every 6 hours prn SUMATRIPTAN SUCCINATE 39623522677 Active Pacolljanee Martínez APRN Active TOPAMAX 50 MG ORAL TABS 1 tab twice daily TOPIRAMATE 04274407007 Active Vishal Hui MD Active SAPHRIS 5 MG SUBL 1 po bid ASENAPINE MALEATE 76108837087 No Longer Active Luigi Martínez APRN Active LATUDA 80 MG TABS Take one by mouth daily LURASIDONE HCL 36753580640 No Longer Active Luigi Martínez APRN Active AMLODIPINE BESYLATE 5 MG TABS 1 tablet by mouth daily AMLODIPINE BESYLATE 75744217585 No Longer Active Luigi Martínez APRN Active AMITRIPTYLINE HCL 100 MG TAB one at hs AMITRIPTYLINE HCL 26760001500 No Longer Active Vishal Hui MD Active TRAZODONE HCL 100 MG TAB take 1 at bedtime TRAZODONE HCL 92815284227 No Longer Active Vishal Hui MD Active VYVANSE 40 MG CAPS 1 daily, LISDEXAMFETAMINE DIMESYLATE 85718132762 No Longer Active Vishal Hui MD Active IBUPROFEN 600 MG TAB 1 po TID PRN IBUPROFEN 83025896195 No Longer Active Vishal Hui MD Active PROZAC 20 MG CAP Take one by mouth daily FLUOXETINE HCL 90394571124 No Longer Active Vishal Hui MD Active ZOFRAN 4 MG TABS 1 po q6hr PRN Nausea ONDANSETRON HCL Active Vishal Hui MD Active BACTRIM DS 800-160 MG TABS 1 pill by mouth twice daily SULFAMETHOXAZOLE-TRIMETHOPRIM 52173688984 No Longer Active Sahara Rodriguez MD PhD Active DIFLUCAN 150 MG TAB 1 tablet by mouth daily FLUCONAZOLE 67419131712 No Longer Active Vishal Hui MD Active TIZANIDINE HCL 4 MG TABS 1 po q6hr PRN Muscle Spasm/Back Pain TIZANIDINE HCL 26461207282 Active Vishal Hui MD Active CLINDAMYCIN HCL 150 MG CAPS 1 four times a day CLINDAMYCIN HCL 00211057125 No Longer Active Neeraj Collins MD Active KEFLEX 500 MG ORAL CAPS 1 cap QID by mouth CEPHALEXIN 65709621477 No Longer Active Neeraj Collins MD Active DIFLUCAN 150 MG TABS 1 pill every other day x 2 doses FLUCONAZOLE 34261679949 No Longer Active Sahara Rodriguez MD PhD Active MELATONIN 3 MG CAPS 2 po q hs MELATONIN 54549776541 No Longer Active Sahara Rodriguez MD PhD Active MULTIVITAMINS CAPS Take one by mouth daily MULTIPLE VITAMIN 11300947142 No Longer Active Sahara Rodriguez MD PhD Active BACTRIM DS 800-160 MG TAB 1 tab by mouth twice daily TRIMETHOPRIM-SULFAMETHOXAZOLE 48013067093 No Longer Active Sahara Rodriguez MD PhD Active [facility] PROBIOTIC ORAL CHEW 2 daily po PROBIOTIC PRODUCT 35379047037 No Longer Active Sahara Rodriguez MD PhD Active BACTRIM DS 800-160 MG TABS 1 po BID x 7 days SULFAMETHOXAZOLE-TRIMETHOPRIM 40028051033 No Longer Active Vishal Hui MD Active CHANTIX STARTING MONTH EARNEST 0.5 MG X 11 & 1 MG X 42 TABS 0.5mg daily for 3 days , then 0.5mg BID for 4 days, then 1mg BID VARENICLINE TARTRATE 93583725478 No Longer Active TAMARA Gray Active VERAPAMIL HCL CR 120 MG TAB CR 1 po bid VERAPAMIL HCL 62818206056 No Longer Active Vishal Hui MD Active METOPROLOL SUCCINATE 50 MG TB24 1 tablet by mouth daily METOPROLOL SUCCINATE 75835317296 No Longer Active Vishal Hui MD Active SAPHRIS 10 MG SUBL 1 tab po bid ASENAPINE MALEATE 02506317342 No Longer Active Vishal Hui MD Active LISINOPRIL 20 MG TABS 1 tab po qd LISINOPRIL 82649046696 No Longer Active Vishal Hui MD Active LATUDA 20 MG TABS Take one by mouth daily LURASIDONE HCL 73002074905 No Longer Active Vishal Hui MD Active TRAZODONE HCL 50 MG TABS 1/2 tab po qd prn for anxiety TRAZODONE HCL 07451159798 No Longer Active Vishal Hui MD Active OMEPRAZOLE 20 MG TBEC 1 po q a.m. 30min prior to first food intake OMEPRAZOLE 64088148184 Active Vishal Hui MD Active RANITIDINE HCL 150 MG CAPS 1 twice a day RANITIDINE HCL 94305525040 Active Luigi Martínez LEANN Active LINZESS 290 MCG CAPS Take one by mouth daily LINACLOTIDE 00981372307 No Longer Active Vishal Hui MD Active SAPHRIS 5 MG SUBL 1 tab po qd ASENAPINE MALEATE 47306839707 No Longer Active Vishal Hui MD Active ZALEPLON 10 MG CAPS 1 cap po every other night ZALEPLON 35415004735 No Longer Active Vishal Hui MD Active LYRICA 50 MG CAPS 1 tab po TID PREGABALIN 05672589630 No Longer Active Vishal Hui MD Active LORATADINE 10 MG TABS 1 tab po qd LORATADINE 78515030278 No Longer Active Vishal Hui MD Active VERAPAMIL HCL ER 180 MG CR-TABS 1 tab po bid VERAPAMIL HCL 27571964915 No Longer Active Vishal Hui MD Active MIRALAX POWD 1 capfull once daily POLYETHYLENE GLYCOL 3350 59369959706 No Longer Active Vishal Hui MD Active PREDNISONE 20 MG TABS 1 tab po qd PREDNISONE 11696154413 No Longer Active Renzo Thornton DO Active LEVOFLOXACIN 500 MG TABS 1 tab po qd LEVOFLOXACIN 03090590347 No Longer Active Renzo Thornton DO Active BUSPIRONE HCL 15 MG TABS 1 tab po TID BUSPIRONE HCL 06477253919 No Longer Active Renzo Thornton DO Active BENZTROPINE MESYLATE 1 MG TABS 1 tab po qd BENZTROPINE MESYLATE 06917488319 No Longer Active Renzo Thornton DO Active ATENOLOL 25 MG TABS 1 tab po qd ATENOLOL 87350342944 No Longer Active Renzo Thornton DO Active ESCITALOPRAM OXALATE 20 MG TABS 1 tab po qd ESCITALOPRAM OXALATE 82721179735 No Longer Active Renzo Thornton DO Active ADVAIR DISKUS 250-50 MCG/DOSE AEPB 1 puff BID FLUTICASONE-SALMETEROL 45088356711 No Longer Active Renzo Thornton DO Active PREDNISONE 20 MG TAB 2 tabs daily for 3 days, 1 tab daily for 3 days, 1/2 tab daily for 2 days PREDNISONE 79901222048 No Longer Active Vishal Hui MD Active CEFDINIR 300 MG CAPS by mouth twice a day CEFDINIR 15131360077 No Longer Active Vishal Hui MD Active LANSOPRAZOLE 30 MG CPDR 1 cap po qd LANSOPRAZOLE 82944418549 No Longer Active Vishal Hui MD Active BACLOFEN 20 MG TABS 1 tab po tid BACLOFEN 15417163160 No Longer Active Vishal Hui MD Active ADVAIR DISKUS 250-50 MCG/DOSE AEPB 1 puff BID ADVAIR DISKUS 250-50 MCG/DOSE AEPB FLUTICASONE-SALMETEROL Inactive ESCITALOPRAM OXALATE 20 MG TABS 1 tab po qd ESCITALOPRAM OXALATE 20 MG TABS 699686 ESCITALOPRAM OXALATE Inactive ATENOLOL 25 MG TABS 1 tab po qd ATENOLOL 25 MG TABS 855368 ATENOLOL Inactive BENZTROPINE MESYLATE 1 MG TABS 1 tab po qd BENZTROPINE MESYLATE 1 MG TABS 538915 BENZTROPINE MESYLATE Inactive BUSPIRONE HCL 15 MG TABS 1 tab po TID BUSPIRONE HCL 15 MG TABS 509819 BUSPIRONE HCL Inactive LEVOFLOXACIN 500 MG TABS 1 tab po qd LEVOFLOXACIN 500 MG TABS 889143 LEVOFLOXACIN Inactive PREDNISONE 20 MG TABS 1 tab po qd PREDNISONE 20 MG TABS 018860 PREDNISONE Inactive MIRALAX POWD 1 capfull once daily MIRALAX POWD 623724 POLYETHYLENE GLYCOL 3350 Inactive VERAPAMIL HCL ER 180 MG CR-TABS 1 tab po bid VERAPAMIL HCL ER 180 MG CR-TABS VERAPAMIL HCL Inactive LORATADINE 10 MG TABS 1 tab po qd LORATADINE 10 MG TABS 444258 LORATADINE Inactive LYRICA 50 MG CAPS 1 tab po TID LYRICA 50 MG CAPS PREGABALIN Inactive ZALEPLON 10 MG CAPS 1 cap po every other night ZALEPLON 10 MG CAPS 319102 ZALEPLON Inactive SAPHRIS 5 MG SUBL 1 tab po qd SAPHRIS 5 MG SUBL ASENAPINE MALEATE Inactive TRAZODONE HCL 50 MG TABS 1/2 tab po qd prn for anxiety TRAZODONE HCL 50 MG TABS 141838 TRAZODONE HCL Inactive LATUDA 20 MG TABS Take one by mouth daily LATUDA 20 MG TABS LURASIDONE HCL Inactive LISINOPRIL 20 MG TABS 1 tab po qd LISINOPRIL 20 MG TABS 229604 LISINOPRIL Inactive SAPHRIS 10 MG SUBL 1 [...] twice daily BACTRIM DS 800-160 MG TAB 628041 TRIMETHOPRIM-SULFAMETHOXAZOLE Inactive MULTIVITAMINS CAPS Take one by mouth daily MULTIVITAMINS CAPS MULTIPLE VITAMIN Inactive MELATONIN 3 MG CAPS 2 po q hs MELATONIN 3 MG CAPS 512073 MELATONIN Inactive KEFLEX 500 MG ORAL CAPS 1 cap QID by mouth KEFLEX 500 MG ORAL CAPS 057721 CEPHALEXIN Inactive CLINDAMYCIN HCL 150 MG CAPS 1 four times a day CLINDAMYCIN HCL 150 MG CAPS 542884 CLINDAMYCIN HCL Inactive DIFLUCAN 150 MG TAB 1 tablet by mouth daily DIFLUCAN 150 MG TAB 098970 FLUCONAZOLE Inactive PROZAC 20 MG CAP Take one by mouth daily PROZAC 20 MG CAP 061858 FLUOXETINE HCL Inactive IBUPROFEN 600 MG TAB 1 po TID PRN IBUPROFEN 600 MG TAB 321195 IBUPROFEN Inactive VYVANSE 40 MG CAPS 1 daily, VYVANSE 40 MG CAPS LISDEXAMFETAMINE DIMESYLATE Inactive TRAZODONE HCL 100 MG TAB take 1 at bedtime TRAZODONE HCL 100 MG TAB 589638 TRAZODONE HCL Inactive AMITRIPTYLINE HCL 100 MG TAB one at hs AMITRIPTYLINE HCL 100 MG TAB 442232 AMITRIPTYLINE HCL Inactive AMLODIPINE BESYLATE 5 MG TABS 1 tablet by mouth daily AMLODIPINE BESYLATE 5 MG TABS 724318 AMLODIPINE BESYLATE Inactive LATUDA 80 MG TABS Take one by mouth daily LATUDA 80 MG TABS LURASIDONE HCL Inactive SAPHRIS 5 MG SUBL 1 po bid SAPHRIS 5 MG SUBL ASENAPINE MALEATE Inactive PREDNISONE 20 MG TAB 2 tabs daily for 4 days, 1 tab daily for 4 days, 1/2 tab daily for 4 days PREDNISONE 20 MG TAB 182781 PREDNISONE Inactive AMBIEN 5 MG ORAL TABS 1 tab at bedtime AMBIEN 5 MG ORAL TABS 871993 ZOLPIDEM TARTRATE Inactive PROZAC 20 MG ORAL CAPS 1 tab daily PROZAC 20 MG ORAL CAPS 953211 FLUOXETINE HCL Inactive ABILIFY 15 MG ORAL TABS 1 tab daily ABILIFY 15 MG ORAL TABS 514839 ARIPIPRAZOLE Inactive METOPROLOL TARTRATE 50 MG TAB 1 po bid METOPROLOL TARTRATE 50 MG TAB 350019 METOPROLOL TARTRATE Inactive TRAMADOL HCL 50 MG TABS 1-2 po TID PRN Pain TRAMADOL HCL 50 MG TABS 484079 TRAMADOL HCL Inactive PIROXICAM 20 MG CAPS 1 cap po qd PRN Pain PIROXICAM 20 MG CAPS 521317 PIROXICAM Inactive MINIPRESS 2 MG CAPS 4 cap po at night MINIPRESS 2 MG CAPS 886441 PRAZOSIN HCL Inactive MIRALAX PACK 1 po qd PRN Constipation MIRALAX PACK 343000 POLYETHYLENE GLYCOL 3350 Inactive METOPROLOL TARTRATE 25 MG ORAL TABS 1/2 tablet twice daily for heart rate and blood pressure METOPROLOL TARTRATE 25 MG ORAL TABS 422668 METOPROLOL TARTRATE Inactive VALIUM 5 MG TAB Take 1-2 tablets daily VALIUM 5 MG TAB 491453 DIAZEPAM Inactive CEFDINIR 300 MG CAPS by mouth twice a day CEFDINIR 300 MG CAPS 874152 CEFDINIR Inactive PREDNISONE 20 MG TAB 2 tabs daily for 3 days, 1 tab daily for 3 days, 1/2 tab daily for 2 days PREDNISONE 20 MG TAB 494056 PREDNISONE Inactive BACTRIM DS 800-160 MG TABS [...] x 10 days KEFLEX 500 MG CAP 184189 CEPHALEXIN Inactive Advance Directives Directive Description Start [...] % 11.6-14.8 platelet count 394 10^3/MM^3 10*3/mm3 437-576 7296/01/11 leukocyte count, blood 13.8 10^3/MM^3 10*3/mm3 4.6-10.2 [...] Panel - Chemistry sodium, serum 139 mmol/L 021-817 1669/12/03 carbon dioxide, venous blood 28.5 mmol/L 21.0-32.0 [...] 5.5 % 4.3-6.0 cholesterol, serum 159 mg/dL 669-738 9433/12/03 triglyceride, serum, fasting 118 mg/dL 30-200 HDL [...] Panel - Chemistry sodium, serum 139 mmol/L 096-359 4569/12/22 carbon dioxide, venous blood 26.8 mmol/L 21.0-32.0 potassium, serum 4.2 mmol/L 3.5-5.2 chloride, serum 103 mmol/L 98-107 blood glucose 115 mg/dL 65-110 urea nitrogen, blood 20 mg/dL 7-18 creatinine, serum 0.90 mg/dL 0.55-1.30 alanine aminotransferase (SGPT), serum 38 U/L - aspartate aminotransferase (SGOT), serum 19 U/L 15-37 calcium, serum 8.6 mg/dL 8.5-10.1 bilirubin, serum, total 0.30 mg/dL 0.00-1.00 sodium, serum 139 mmol/L 299-497 7440/01/11 carbon dioxide, venous blood 26.6 mmol/L 21.0-32.0 potassium, serum 4.1 mmol/L 3.5-5.2 chloride, serum 100 mmol/L 98-107 blood glucose 86 mg/dL 65-110 urea nitrogen, blood 16 mg/dL 7-18 creatinine, serum 1.00 mg/dL 0.55-1.30 alanine aminotransferase (SGPT), serum 48 U/L aspartate aminotransferase (SGOT), serum 17 U/L 15-37 calcium, serum 9.1 mg/dL 8.5-10.1 bilirubin, serum, total 0.40 mg/dL 0.00-1.00 sodium, serum 142 mmol/L 581-026 7121/06/08 carbon dioxide, venous blood 27.6 mmol/L 21.0-32.0 [...] Rate - Chemistry sodium, serum 139 mmol/L 891-232 1875/12/11 carbon dioxide, venous blood 25.4 mmol/L 21.0-32.0 [...] mg/dL Encounters Code Encounter Date Provider Facility CPT-89043 Level 3 Est. Patient 08:56:03 CDT Luigi Martínez [facility] CPT-45537 Level 4 Est. Patient 12:11:48 CDT Fabiola Johnson [facility] CPT-44593 Level 3 New Patient 16:53:37 CDT Albert Caldera MD [facility] CPT-53950 Level 3 Est. Patient 11:25:49 CDT Renzo Thornton DO [facility] CPT-86161 Level 3 Est. Patient 15:22:01 CDT Ahmet Carbajal MD [facility] CPT-87931 Level 4 Est. Patient 09:00:51 [employer] Vishal Hui MD [facility] CPT-60350 Level 3 Est. Patient 11:37:33 VISION [employer]ER Vishal Hui MD [facility] CPT-73992 Level 3 Est. Patient 08:41:09 [employer] Vishal Hui MD [facility] CPT-24416 Level 4 Est. Patient 10:19:35 [employer] Vishal Hui MD [facility] CPT-49021 Level 3 Est. Patient 13:35:45 CDT Vishal Hui MD [facility] CPT-40939 Level 4 Est. Patient 10:08:37 CDT Vishal Hui MD [facility] CPT-32366 Level 3 Est. Patient 11:22:10 CDT Vishal Hui MD [facility] CPT-22433 Level 3 Est. Patient 11:03:32 CDT Sahara Rodriguez MD PhD [facility] CPT-69604 Level 3 Est. Patient 09:41:35 CDT Vishal Hui MD [facility] CPT-82242 Level 3 Est. Patient 12:00:41 CDT Neeraj Collins MD [facility] CPT-07266 Level 3 Est. Patient 09:16:24 CDT Vishal Hui MD [facility] CPT-33729 Level 4 Est. Patient 13:59:09 CDT Neeraj Collins MD [facility] CPT-46981 Level 3 Est. Patient 15:19:43 CDT Renzo Thornton DO [facility] CPT-23839 Level 3 Est. Patient 18:10:26 CDT Sahara Rodriguez MD [facility]-92767 Level 3 Est. Patient 14:49:50 CDT Vishal Hui MD [facility] CPT-67799 Level 4 Est. Patient 18:41:46 CDT Neeraj Collins MD [facility] CPT-76315 Level 4 Est. Patient 09:18:38 VISION M[employer]ER Vishal Hui MD [facility] CPT-10189 Level 3 Est. Patient 14:43:55 VISION M[employer]ER Vishal Hui MD [facility] CPT-37664 Level 3 Est. Patient 15:26:33 VISION [employer]ER Sahara Rodriguez MD PhD [facility] CPT-37119 Level 3 Est. Patient 10:32:14 VISION M[employer]ER Vishal Hui MD [facility] CPT-67413 Level 3 Est. Patient 15:12:52 VISION M[employer]ER Vishal Hui MD [facility] CPT-62525 Level 4 Est. Patient 09:19:27 CDT Vishal Hui MD [facility] CPT-28074 Level 3 Est. Patient 15:53:00 CDT Renzo Thornton DO [facility] CPT-92655 Level 3 Est. Patient 15:50:30 CDT Renzo Thornton DO [facility] CPT-56935 Level 3 Est. Patient 16:55:24 CDT Vishal Hui MD [facility] Procedures Code Procedure Name Date Entry Date Standard Description CPT-73948 Cervical Min 4V - XRAY USE ONLY 09:01:40 CDT CPT-73101 Chest 2V Frontal and Lat - XRAY USE ONLY 11:06:31 CDT CPT-92853 EKG Trac and Interp - XRAY USE ONLY 11:31:43 CDT 08/26 CPT-J3420 Vitamin B12 1000mcg (Cyanocobalamin) 08:10:26 VISION MIXER 04/12 CPT-41195 Abx/Therapy Injection 08:10:26 [employer]ISION [employer] CPT-G0438 Initial Annual Wellness Exam 19:01:01 [employer]ISION [employer] CPT-J3420 Vitamin B12 1000mcg (Cyanocobalamin) 16:57:46 CDT 08/14 CPT-89893 Recombivax HB Injection Suspension 5 MCG/0.5ML 08:37:50 VISION MIXER CPT-18574 Immunization Single Admin 08:37:50 VISION M[employer]ER CPT-J3420 Vitamin B12 1000mcg (Cyanocobalamin) 08:32:16 VISION MIXER 03/11 CPT-33518 Abx/Therapy Injection 08:32:16 VISION MIXER CPT-27805 Chest 2V Frontal and Lat 11:46:38 VISION M[employer]ER CPT-07069 Venipuncture Draw Fee 09:12:45 VISION M[employer]ER CPT-J3420 Vitamin B12 1000mcg (Cyanocobalamin) 08:50:15 VISION MIXER 02/08 CPT-24175 Abx/Therapy Injection 08:50:15 VISION MIXER CPT-Cryo Cryotherapy 10:19:35 VISION MIXER CPT-000 Give Appropriate Flu Vaccine 09:22:16 CDT CPT-J3420 Vitamin B12 1000mcg (Cyanocobalamin) 19:08:57 CDT 01/11 CPT-23436 Abx/Therapy Injection 19:08:57 CDT CPT-J3420 Vitamin B12 1000mcg (Cyanocobalamin) 08:19:08 CDT 12/11 CPT-02627 Abx/Therapy Injection 08:19:08 CDT CPT-J3420 Vitamin B12 1000mcg (Cyanocobalamin) 14:48:00 CDT 11/09 CPT-56132 Abx/Therapy Injection 14:47:59 CDT CPT-J3420 Vitamin B12 1000mcg (Cyanocobalamin) 08:34:04 CDT 10/09 CPT-92217 Abx/Therapy Injection 08:34:04 CDT CPT-J3420 Vitamin B12 1000mcg (Cyanocobalamin) 09:18:52 CDT 09/11 CPT-03129 Abx/Therapy Injection 09:18:52 CDT CPT-J3420 Vitamin B12 1000mcg (Cyanocobalamin) 08:35:44 CDT 09/04 CPT-31789 Abx/Therapy Injection 08:35:44 CDT CPT-96425 Immunization Single Admin 11:07:16 CDT CPT-42426 Hepatitis B adult IM 11:07:16 CDT CPT-J3420 Vitamin B12 1000mcg (Cyanocobalamin) 11:00:49 CDT 08/28 CPT-J1040 Depo Medrol 80 mg (Methyl Prednisolone Acetate) 11:00: 49 CDT CPT-43864 Abx/Therapy Injection 11:00:49 CDT CPT-J1040 Depo Medrol 80 mg (Methyl Prednisolone Acetate) 09:16: 23 CDT CPT-J3420 Vitamin B12 1000mcg (Cyanocobalamin) 08:27:05 CDT 08/20 CPT-96580 Abx/Therapy Injection 08:27:05 CDT CPT-20043 Recombivax HB Injection Suspension 5 MCG/0.5ML 10:00:41 CDT CPT-92449 Administration single or combination vaccine inc oral 10 :00:41 CDT CPT-69528 Sono transvag pelvis non OB uterus ovaries cervix 16:36: 57 CDT CPT-43343 LS spine comp w obliq 09:50:55 VISION MIXER CPT-88727 Abd compl w upright 09:50:55 VISION MIXER CPT-J1100 Decadron 4mg (Dexamethasone) 15:51:24 VISION MIXER CPT-J1030 Depo Medrol 40 mg (Methyl Prednisolone Acetate) 15:51: 24 VISION MIXER CPT-13900 Abx/Therapy Injection 15:51:24 VISION MIXER CPT-J1100 Decadron 4mg (Dexamethasone) 15:26:33 VISION MIXER CPT-J1030 Depo Medrol 40 mg (Methyl Prednisolone Acetate) 15:26: 33 VISION MIXER CPT-26079 Sono retroperitoneal complete kidneys and bladder 17:15: 30 CDT CPT-89419 Abd compl w upright 16:09:25 CDT CPT-J1100 Decadron 8mg (Dexamethasone) 17:07:57 CDT CPT-48545 Abx/Therapy Injection 17:07:57 CDT CPT-J1100 Decadron 8mg (Dexamethasone) 16:55:24 CDT CPT-30195 Chest 2V Frontal and Lat 16:32:44 CDT
--- OUTSIDE RECORDS SUMMARY | 2016-11-04 21:03 | XMS REPORT | Clinical Summary ---
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 exam V72.31 Active Suzan Boo GLASS [employer] MACHINE OPERATOR ASSISTANT Routine gynecological examination Bronchitis, acute with mild bronchospasm 466.0 Active Suzan Boo [employer] MACHINE OPERATOR ASSISTANT Acute bronchitis Fibrocystic breast changes 610.1 Active Suzan Boo APRN Diffuse cystic 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 Suzan Boo GLASS RIB[employer] MACHINE OPERATOR ASSISTANT Other specified conditions influencing health status Anxiety [...] SOLN 1 drop PRN eye spasms TROPICAMIDE 74321105012 Active Samantha Stephan RMA Active RISPERDAL 4 MG ORAL TABS 1 tab at bedtime RISPERIDONE 31438420051 Active Samantha Stephan RMA Active LEVAQUIN 500 MG TABS 1 daily for infection LEVOFLOXACIN 20030563154 Active Suzan Boo APRN Active TESSALON PERLES 100 MG CAPS 1 three times a day as needed for cough BENZONATATE 87632620816 Active Suzan Boo APRN Active ZOFRAN 4 MG TABS 1 po q6hr PRN Nausea ONDANSETRON HCL No Longer Active Suzan Boo APRN Active FLUTICASONE PROPIONATE 50 MCG/ACT SUSP 2 sprays each nostril daily before bed. FLUTICASONE PROPIONATE 91980123070 No Longer Active Suzan Boo APRN Active ASPIRIN 325 MG ORAL TABS 1 tab q.d ASPIRIN 65264639866 No Longer Active Suzan Boo APRN Active HALOPERIDOL 10 MG ORAL TABS 1 tab q.d HALOPERIDOL 31405117956 No Longer Active Suzan Boo APRN Active GUAIFENESIN-CODEINE 100-10 MG/5ML SYRP 5ml every 4 to 6 hours as needed for cough GUAIFENESIN-CODEINE 75392894746 No Longer Active Suzan Boo APRN Active ZITHROMAX Z-EARNEST 250 MG TABS 2 today and then 1 daily for 4 days AZITHROMYCIN 32392961201 No Longer Active Suzan Boo APRN Active PREDNISONE 10 MG TABS 2 daily for 5 days then 1 daily for 5 days PREDNISONE 22526132614 Active Suzan Boo APRN Active CLONAZEPAM 1 MG ORAL TABS 1 twice a day and an additional 1 tablet every other day as needed for pseudoseizures or anxiety CLONAZEPAM 82236168749 Active Ahmet Carbajal MD Active HYDROCODONE-ACETAMINOPHEN 5-325 MG ORAL TABS 1 tab two times a day HYDROCODONE-ACETAMINOPHEN 67977159931 No Longer Active Ahmet Carbajal MD Active LAMICTAL 100 MG ORAL TABS 1 tab 2 times qd. LAMOTRIGINE 01552980694 Active Ahmet Carbajal MD Active PREDNISONE 20 MG TABS 2 daily for 5 days then 1 daily for 5 days PREDNISONE 95429618505 No Longer Active Ahmet Carbajal MD Active FLUTICASONE PROPIONATE 50 MCG/ACT SUSP 1 to 2 sprays each nostril daily for allergies FLUTICASONE PROPIONATE 26676775316 Active Tila Valenzuela Active BENADRYL 25 MG CAP 4 po at bedtime for insomnia DIPHENHYDRAMINE HCL 77156532935 No Longer Active Ahmet Carbajal MD Active ADVAIR DISKUS 250-50 MCG/DOSE INH AEPB 1 puff twice a day for asthma FLUTICASONE-SALMETEROL 60602336244 No Longer Active Ahmet Carbajal MD Active KLONOPIN 1 MG ORAL TABS 1 tab po TID CLONAZEPAM 96556084182 No Longer Active Ahmet Carbajal MD Active ABILIFY MAINTENA 400 MG IM SUSR 400mg injection every 26 days ARIPIPRAZOLE 63589290913 No Longer Active Ahmet Carbajal MD Active TRAMADOL HCL 50 MG TABS 1/2-1 tab TID PRN TRAMADOL HCL 55591539731 No Longer Active Ahmet Carbajal MD Active BACTRIM DS 800-160 MG TABS 1 twice a day SULFAMETHOXAZOLE- TRIMETHOPRIM 67473036817 No Longer Active Ahmet Carbajal MD Active PROAIR HFA 108 (90 BASE) MCG/ACT AERS 2 puffs four times a day as needed 2015 ALBUTEROL SULFATE 74739288375 Active Ahmet Carbajal MD Active EQ NICOTINE 21 MG/24HR TRANS PT24 Apply daily to stop smoking NICOTINE 55424030896 Active Ahmet Carbajal MD Active MONISTAT 7 COMBO PACK WOODROW 100 & 2 MG-% (9GM) VAG KIT 1 applicatorful per vagina q pm x 7 MICONAZOLE NITRATE 09959383220 No Longer Active Ahmet Carbajal MD Active FLAGYL 500 MG TAB 1 tablet by mouth bid METRONIDAZOLE 50410214249 No Longer Active Ahmet Carbajal MD Active OXYCODONE HCL ER 10 MG ORAL T12A 1/2 tab by mouth every 4 hours prn OXYCODONE HCL 20100741382 No Longer Active Ahmet Carbajal MD Active METHYLPREDNISOLONE 4 MG ORAL TABS po daily METHYLPREDNISOLONE 42541779047 No Longer Active Ahmet Carbajal MD Active LEVOFLOXACIN 500 MG ORAL TABS po daily LEVOFLOXACIN 72305929633 No Longer Active Ahmet Carbajal MD Active VIIBRYD 10 MG ORAL TABS Take 1 tablet once a day VILAZODONE HCL 63750968166 No Longer Active Ahmet Carbajal MD Active TOPAMAX 50 MG ORAL TABS 1 tab twice daily TOPIRAMATE 35951983545 No Longer Active Ahmet Carbajal MD Active DICLOFENAC SODIUM 50 MG TBEC 1 tablet by mouth four times daily PRN Pain 2015 DICLOFENAC SODIUM 17413663630 No Longer Active Ahmet Carbajal MD Active ADZENYS XR-ODT 6.3 MG ORAL TBED 1 tab po daily for ADHD AMPHETAMINE 67614278585 No Longer Active Ahmet Carbajal MD Active CHANTIX 1 MG TABS 1 twice a day to help quit smoking VARENICLINE TARTRATE 14625893053 No Longer Active Dipika Burgos MD Active CHANTIX STARTING MONTH EARNEST 0.5 MG X 11 & 1 MG X 42 TABS take as directed 2015 VARENICLINE TARTRATE 13480319015 No Longer Active Dipika Burgos MD Active TESSALON PERLES 100 MG CAP 1 to 2 tablets by mouth 3 times daily as needed for cough BENZONATATE 54242594167 No Longer Active Luigi Martínez APRN Active IMITREX 50 MG ORAL TABS 0.5 po x 1 PRN Headache. May repeat dose x 1 in 2 hours if needed SUMATRIPTAN SUCCINATE 89652150829 Active Ahmet Carbajal MD Active HYDROCODONE-ACETAMINOPHEN 5-325 MG TABS 1 to 2 four times a day as needed for pain use until can be seen by specialist HYDROCODONE- ACETAMINOPHEN 96277960844 No Longer Active Vishal Hui MD Active PROAIR HFA 108 (90 BASE) MCG/ACT AERS 2 puffs four times a day as needed 2015 ALBUTEROL SULFATE 16438236281 No Longer Active Vishal Hui MD Active PREDNISONE 20 MG TABS 2 daily for 5 days then 1 daily for 5 days PREDNISONE 08075673229 No Longer Active Vishal Hui MD Active ZITHROMAX Z-EARNEST 250 MG TABS 2 today and then 1 daily for 4 days AZITHROMYCIN 99417731827 No Longer Active Vishal Hui MD Active DICLOFENAC POTASSIUM TABS Take 1 tablet twice a day (pt. is not sure of the dose.) DICLOFENAC POTASSIUM TABS 16133047004 No Longer Active Vishal Hui MD Active VERAPAMIL HCL ER 120 MG ORAL CR-TABS Take 1 tablet by mouth twice a day. VERAPAMIL HCL 72091267289 Active Vishal Hui MD Active FLAGYL 500 MG TAB 1 tablet by mouth bid METRONIDAZOLE 11474119259 No Longer Active Vishal Hui MD Active VALIUM 5 MG TAB Take 1-2 tablets daily DIAZEPAM 65715778802 No Longer Active Fabiola Johnson APRN Active METOPROLOL TARTRATE 25 MG ORAL TABS 1/2 tablet twice daily for heart rate and blood pressure METOPROLOL TARTRATE 53936690701 No Longer Active Fabiola Johnson APRN Active MIRALAX ORAL POWD 17GMS DAILY IN WATER POLYETHYLENE GLYCOL 3350 90279284608 Active TAMARA Casey Active MIRALAX PACK 1 po qd PRN Constipation POLYETHYLENE GLYCOL 3350 75119395837 No Longer Active Ahmet Carbajal MD Active MINIPRESS 2 MG CAPS 4 cap po at night PRAZOSIN HCL 86328571241 No Longer Active Ahmet Carbajal MD Active PIROXICAM 20 MG CAPS 1 cap po qd PRN Pain PIROXICAM 55138661999 No Longer Active Ahmet Carbajal MD Active TRAMADOL HCL 50 MG TABS 1-2 po TID PRN Pain TRAMADOL HCL 10701712479 No Longer Active Ahmet Carbajal MD Active METOPROLOL TARTRATE 50 MG TAB 1 po bid METOPROLOL TARTRATE 13437117580 No Longer Active Ahmet Carbajal MD Active ABILIFY 15 MG ORAL TABS 1 tab daily ARIPIPRAZOLE 52898472162 No Longer Active Ahmet Carbajal MD Active PROZAC 20 MG ORAL CAPS 1 tab daily FLUOXETINE HCL 78115088126 No Longer Active Ahmet Carbajal MD Active AMBIEN 5 MG ORAL TABS 1 tab at bedtime ZOLPIDEM TARTRATE 21233303384 No Longer Active Ahmet Carbajal MD Active PREDNISONE 20 MG TAB 2 tabs daily for 4 days, 1 tab daily for 4 days, 1/2 tab daily for 4 days PREDNISONE 55849718833 No Longer Active Ahmet Carbajal MD Active KEFLEX 500 MG CAP 1 po TID x 10 days CEPHALEXIN 29874308614 No Longer Active Vishal Hui MD Active SAPHRIS 5 MG SUBL 1 po bid ASENAPINE MALEATE 43526096582 No Longer Active Jillina Frazell GLASS RIBBON MACHINE OPERATOR ASSISTANT Active LATUDA 80 MG TABS Take one by mouth daily LURASIDONE HCL 73671664649 No Longer Active Jillina Frazell GLASS RIBBON MACHINE OPERATOR ASSISTANT Active AMLODIPINE BESYLATE 5 MG TABS 1 tablet by mouth daily AMLODIPINE BESYLATE 62490533319 No Longer Active Jillina Frazell GLASS RIBBON MACHINE OPERATOR ASSISTANT Active AMITRIPTYLINE HCL 100 MG TAB one at hs AMITRIPTYLINE HCL 97980863514 No Longer Active Vishal Hui MD Active TRAZODONE HCL 100 MG TAB take 1 at bedtime TRAZODONE HCL 31271404935 No Longer Active Vishal Hui MD Active VYVANSE 40 MG CAPS 1 daily, LISDEXAMFETAMINE DIMESYLATE 27923728138 No Longer Active Vishal Hui MD Active IBUPROFEN 600 MG TAB 1 po TID PRN IBUPROFEN 46445702558 No Longer Active Vishal Hui MD Active PROZAC 20 MG CAP Take one by mouth daily FLUOXETINE HCL 11357818271 No Longer Active Vishal Hui MD Active BACTRIM DS 800-160 MG TABS 1 pill by mouth twice daily SULFAMETHOXAZOLE-TRIMETHOPRIM 45984372179 No Longer Active Sahara Rodriguez MD PhD Active DIFLUCAN 150 MG TAB 1 tablet by mouth daily FLUCONAZOLE 43664941924 No Longer Active Vishal Hui MD Active TIZANIDINE HCL 4 MG TABS 1 po q6hr PRN Muscle Spasm/Back Pain TIZANIDINE HCL 81751598380 Active Vishal Hui MD Active CLINDAMYCIN HCL 150 MG CAPS 1 four times a day CLINDAMYCIN HCL 07479871448 No Longer Active Neeraj Collins MD Active KEFLEX 500 MG ORAL CAPS 1 cap QID by mouth CEPHALEXIN 41634279729 No Longer Active Neeraj Collins MD Active DIFLUCAN 150 MG TABS 1 pill every other day x 2 doses FLUCONAZOLE 95363684165 No Longer Active Sahara Rodriguez MD PhD Active MELATONIN 3 MG CAPS 2 po q hs MELATONIN 65269636864 No Longer Active Sahara Rodriguez MD PhD Active MULTIVITAMINS CAPS Take one by mouth daily MULTIPLE VITAMIN 52722868571 No Longer Active Sahara Rodriguez MD PhD Active BACTRIM DS 800-160 MG TAB 1 tab by mouth twice daily TRIMETHOPRIM-SULFAMETHOXAZOLE 51051742320 No Longer Active Sahara Rodriguez MD PhD Active [facility] PROBIOTIC ORAL CHEW 2 daily po PROBIOTIC PRODUCT 43756159196 No Longer Active Sahara Rodriguez MD PhD Active BACTRIM DS 800-160 MG TABS 1 po BID x 7 days SULFAMETHOXAZOLE-TRIMETHOPRIM 14792482124 No Longer Active Vishal Hui MD Active CHANTIX STARTING MONTH EARNEST 0.5 MG X 11 & 1 MG X 42 TABS 0.5mg daily for 3 days , then 0.5mg BID for 4 days, then 1mg BID VARENICLINE TARTRATE 20602493588 No Longer Active TAMARA Gray Active VERAPAMIL HCL CR 120 MG TAB CR 1 po bid VERAPAMIL HCL 29211220195 No Longer Active Vishal Hui MD Active METOPROLOL SUCCINATE 50 MG TB24 1 tablet by mouth daily METOPROLOL SUCCINATE 12925549800 No Longer Active Vishal Hui MD Active SAPHRIS 10 MG SUBL 1 tab po bid ASENAPINE MALEATE 32621895747 No Longer Active Vishal Hui MD Active LISINOPRIL 20 MG TABS 1 tab po qd LISINOPRIL 30741846105 No Longer Active Vishal Hui MD Active LATUDA 20 MG TABS Take one by mouth daily LURASIDONE HCL 94190506577 No Longer Active Vishal Hui MD Active TRAZODONE HCL 50 MG TABS 1/2 tab po qd prn for anxiety TRAZODONE HCL 58390252097 No Longer Active Vishal Hui MD Active OMEPRAZOLE 20 MG TBEC 1 po q a.m. 30min prior to first food intake OMEPRAZOLE 34299739347 Active TAMARA Casey Active RANITIDINE HCL 150 MG CAPS 1 twice a day RANITIDINE HCL 31145234366 Active Luigi Martínez APRN Active LINZESS 290 MCG CAPS Take one by mouth daily LINACLOTIDE 28487991183 No Longer Active Vishal Hui MD Active SAPHRIS 5 MG SUBL 1 tab po qd ASENAPINE MALEATE 53185647710 No Longer Active Vishal Hiu MD Active ZALEPLON 10 MG CAPS 1 cap po every other night ZALEPLON 48999338694 No Longer Active Vishal Hui MD Active LYRICA 50 MG CAPS 1 tab po TID PREGABALIN 82795455027 No Longer Active Vishal Hui MD Active LORATADINE 10 MG TABS 1 tab po qd LORATADINE 06586226073 No Longer Active Vishal Hui MD Active VERAPAMIL HCL ER 180 MG CR-TABS 1 tab po bid VERAPAMIL HCL 18083224653 No Longer Active Vishal Hui MD Active MIRALAX POWD 1 capfull once daily POLYETHYLENE GLYCOL 3350 01779993804 No Longer Active Vishal Hui MD Active PREDNISONE 20 MG TABS 1 tab po qd PREDNISONE 09915939859 No Longer Active Renzo Thornton DO Active LEVOFLOXACIN 500 MG TABS 1 tab po qd LEVOFLOXACIN 04378288523 No Longer Active Renzo Thornton DO Active BUSPIRONE HCL 15 MG TABS 1 tab po TID BUSPIRONE HCL 98881185516 No Longer Active Renzo Thornton DO Active BENZTROPINE MESYLATE 1 MG TABS 1 tab po qd BENZTROPINE MESYLATE 18227228750 No Longer Active Renzo Thornton DO Active ATENOLOL 25 MG TABS 1 tab po qd ATENOLOL 53293325458 No Longer Active Renzo Thornton DO Active ESCITALOPRAM OXALATE 20 MG TABS 1 tab po qd ESCITALOPRAM OXALATE 10902270328 No Longer Active Renzo Thornton DO Active ADVAIR DISKUS 250-50 MCG/DOSE AEPB 1 puff BID FLUTICASONE-SALMETEROL 57446443437 No Longer Active Renzo Thornton DO Active PREDNISONE 20 MG TAB 2 tabs daily for 3 days, 1 tab daily for 3 days, 1/2 tab daily for 2 days PREDNISONE 95190274092 No Longer Active Vishal Hui MD Active CEFDINIR 300 MG CAPS by mouth twice a day CEFDINIR 97340432104 No Longer Active Vishal Hui MD Active LANSOPRAZOLE 30 MG CPDR 1 cap po qd LANSOPRAZOLE 19595704450 No Longer Active Vishal Hui MD Active BACLOFEN 20 MG TABS 1 tab po tid BACLOFEN 55509529671 No Longer Active Vishal Hui MD Active ADVAIR DISKUS 250-50 MCG/DOSE AEPB 1 puff BID ADVAIR DISKUS 250-50 MCG/DOSE AEPB FLUTICASONE-SALMETEROL Inactive ESCITALOPRAM OXALATE 20 MG TABS 1 tab po qd ESCITALOPRAM OXALATE 20 MG TABS 418064 ESCITALOPRAM OXALATE Inactive ATENOLOL 25 MG TABS 1 tab po qd ATENOLOL 25 MG TABS 792011 ATENOLOL Inactive BENZTROPINE MESYLATE 1 MG TABS 1 tab po qd BENZTROPINE MESYLATE 1 MG TABS 272968 BENZTROPINE MESYLATE Inactive BUSPIRONE HCL 15 MG TABS 1 tab po TID BUSPIRONE HCL 15 MG TABS 871497 BUSPIRONE HCL Inactive LEVOFLOXACIN 500 MG TABS 1 tab po qd LEVOFLOXACIN 500 MG TABS 410546 LEVOFLOXACIN Inactive PREDNISONE 20 MG TABS 1 tab po qd PREDNISONE 20 MG TABS 316572 PREDNISONE Inactive MIRALAX POWD 1 capfull once daily MIRALAX POWD 993830 POLYETHYLENE GLYCOL 3350 Inactive VERAPAMIL HCL ER 180 MG CR-TABS 1 tab po bid VERAPAMIL HCL ER 180 MG CR-TABS VERAPAMIL HCL Inactive LORATADINE 10 MG TABS 1 tab po qd LORATADINE 10 MG TABS 762198 LORATADINE Inactive LYRICA 50 MG CAPS 1 tab po TID LYRICA 50 MG CAPS PREGABALIN Inactive ZALEPLON 10 MG CAPS 1 cap po every other night ZALEPLON 10 MG CAPS 275059 ZALEPLON Inactive SAPHRIS 5 MG SUBL 1 tab po qd SAPHRIS 5 MG SUBL ASENAPINE MALEATE Inactive TRAZODONE HCL 50 MG TABS 1/2 tab po qd prn for anxiety TRAZODONE HCL 50 MG TABS 838828 TRAZODONE HCL Inactive LATUDA 20 MG TABS Take one by mouth daily LATUDA 20 MG TABS LURASIDONE HCL Inactive LISINOPRIL 20 MG TABS 1 tab po qd LISINOPRIL 20 MG TABS 399476 LISINOPRIL Inactive SAPHRIS 10 MG SUBL 1 [...] twice daily BACTRIM DS 800-160 MG TAB 072670 TRIMETHOPRIM-SULFAMETHOXAZOLE Inactive MULTIVITAMINS CAPS Take one by mouth daily MULTIVITAMINS CAPS MULTIPLE VITAMIN Inactive MELATONIN 3 MG CAPS 2 po q hs MELATONIN 3 MG CAPS 19950526 MELATONIN Inactive KEFLEX 500 MG ORAL CAPS 1 cap QID by mouth KEFLEX 500 MG ORAL CAPS 990704 CEPHALEXIN Inactive CLINDAMYCIN HCL 150 MG CAPS 1 four times a day CLINDAMYCIN HCL 150 MG CAPS 912441 CLINDAMYCIN HCL Inactive DIFLUCAN 150 MG TAB 1 tablet by mouth daily DIFLUCAN 150 MG TAB 487921 FLUCONAZOLE Inactive PROZAC 20 MG CAP Take one by mouth daily PROZAC 20 MG CAP 840197 FLUOXETINE HCL Inactive IBUPROFEN 600 MG TAB 1 po TID PRN IBUPROFEN 600 MG TAB 255855 IBUPROFEN Inactive VYVANSE 40 MG CAPS 1 daily, VYVANSE 40 MG CAPS LISDEXAMFETAMINE DIMESYLATE Inactive TRAZODONE HCL 100 MG TAB take 1 at bedtime TRAZODONE HCL 100 MG TAB 609813 TRAZODONE HCL Inactive AMITRIPTYLINE HCL 100 MG TAB one at hs AMITRIPTYLINE HCL 100 MG TAB 243420 AMITRIPTYLINE HCL Inactive AMLODIPINE BESYLATE 5 MG TABS 1 tablet by mouth daily AMLODIPINE BESYLATE 5 MG TABS 003244 AMLODIPINE BESYLATE Inactive LATUDA 80 MG TABS Take one by mouth daily LATUDA 80 MG TABS LURASIDONE HCL Inactive SAPHRIS 5 MG SUBL 1 po bid SAPHRIS 5 MG SUBL ASENAPINE MALEATE Inactive PREDNISONE 20 MG TAB 2 tabs daily for 4 days, 1 tab daily for 4 days, 1/2 tab daily for 4 days PREDNISONE 20 MG TAB 192549 PREDNISONE Inactive AMBIEN 5 MG ORAL TABS 1 tab at bedtime AMBIEN 5 MG ORAL TABS 033860 ZOLPIDEM TARTRATE Inactive PROZAC 20 MG ORAL CAPS 1 tab daily PROZAC 20 MG ORAL CAPS 629451 FLUOXETINE HCL Inactive ABILIFY 15 MG ORAL TABS 1 tab daily ABILIFY 15 MG ORAL TABS 940582 ARIPIPRAZOLE Inactive METOPROLOL TARTRATE 50 MG TAB 1 po bid METOPROLOL TARTRATE 50 MG TAB 341164 METOPROLOL TARTRATE Inactive TRAMADOL HCL 50 MG TABS 1-2 po TID PRN Pain TRAMADOL HCL 50 MG TABS 235489 TRAMADOL HCL Inactive PIROXICAM 20 MG CAPS 1 cap po qd PRN Pain PIROXICAM 20 MG CAPS 575935 PIROXICAM Inactive MINIPRESS 2 MG CAPS 4 cap po at night MINIPRESS 2 MG CAPS 221164 PRAZOSIN HCL Inactive MIRALAX PACK 1 po qd PRN Constipation MIRALAX PACK 853360 POLYETHYLENE GLYCOL 3350 Inactive METOPROLOL TARTRATE 25 MG ORAL TABS 1/2 tablet twice daily for heart rate and blood pressure METOPROLOL TARTRATE 25 MG ORAL TABS 892617 METOPROLOL TARTRATE Inactive VALIUM 5 MG TAB Take 1-2 tablets daily VALIUM 5 MG TAB 076967 DIAZEPAM Inactive FLAGYL 500 MG TAB 1 tablet by mouth bid FLAGYL 500 MG TAB 026187 METRONIDAZOLE Inactive DICLOFENAC POTASSIUM TABS Take 1 tablet twice a day (pt. is not sure of the dose.) DICLOFENAC POTASSIUM TABS DICLOFENAC POTASSIUM TABS Inactive ZITHROMAX Z-EARNEST 250 MG TABS 2 today and then 1 daily for 4 days ZITHROMAX Z-EARNEST 250 MG TABS 2921921 AZITHROMYCIN Inactive PREDNISONE 20 MG TABS 2 daily for 5 days then 1 daily for 5 days PREDNISONE 20 MG TABS 934064 PREDNISONE Inactive PROAIR HFA 108 (90 BASE) MCG/ACT AERS 2 puffs four times a day as needed 2015 PROAIR HFA 108 (90 BASE) MCG/ACT AERS ALBUTEROL SULFATE Inactive HYDROCODONE-ACETAMINOPHEN 5-325 MG TABS 1 to 2 four times a day as needed for pain use until can be seen by specialist HYDROCODONE- ACETAMINOPHEN 5-325 MG TABS 137132 HYDROCODONE-ACETAMINOPHEN Inactive TESSALON PERLES 100 MG CAP 1 to 2 tablets by mouth 3 times daily as needed for cough TESSALON PERLES 100 MG CAP 554088 BENZONATATE Inactive CHANTIX STARTING MONTH EARNEST 0.5 [...] Pain 2015 DICLOFENAC SODIUM 50 MG TBEC 211611 DICLOFENAC SODIUM Inactive TOPAMAX 50 MG ORAL TABS 1 tab twice daily TOPAMAX 50 MG ORAL TABS 005986 TOPIRAMATE Inactive VIIBRYD 10 MG ORAL TABS Take 1 tablet once a day VIIBRYD 10 MG ORAL TABS VILAZODONE HCL Inactive LEVOFLOXACIN 500 MG ORAL TABS po daily LEVOFLOXACIN 500 MG ORAL TABS 875947 LEVOFLOXACIN Inactive METHYLPREDNISOLONE 4 MG ORAL TABS po daily METHYLPREDNISOLONE 4 MG ORAL TABS 574852 METHYLPREDNISOLONE Inactive OXYCODONE HCL ER 10 MG ORAL T12A 1/2 tab by mouth every 4 hours prn OXYCODONE HCL ER 10 MG ORAL T12A OXYCODONE HCL Inactive FLAGYL 500 MG TAB 1 tablet by mouth bid FLAGYL 500 MG TAB 557302 METRONIDAZOLE Inactive MONISTAT 7 COMBO PACK WOODROW 100 & 2 MG-% (9GM) VAG KIT 1 applicatorful per vagina q pm x 7 MONISTAT 7 COMBO PACK WOODROW 100 & 2 MG-% (9GM) VAG KIT MICONAZOLE NITRATE Inactive BACTRIM DS 800-160 MG TABS 1 twice a day BACTRIM DS 800-160 MG TABS 106310 SULFAMETHOXAZOLE-TRIMETHOPRIM Inactive TRAMADOL HCL 50 MG TABS 1/2-1 tab TID PRN TRAMADOL HCL 50 MG TABS 020763 TRAMADOL HCL Inactive ABILIFY MAINTENA 400 MG IM SUSR 400mg injection every 26 days ABILIFCielo MAINTENA 400 MG IM SUSR ARIPIPRAZOLE Inactive KLONOPIN 1 MG ORAL TABS 1 tab po TID KLONOPIN 1 MG ORAL TABS 093049 CLONAZEPAM Inactive ADVAIR DISKUS 250-50 MCG/DOSE INH AEPB 1 puff twice a day for asthma ADVAIR DISKUS 250-50 MCG/DOSE INH AEPB FLUTICASONE- SALMETEROL Inactive BENADRYL 25 MG CAP 4 po at bedtime for insomnia BENADRYL 25 MG CAP DIPHENHYDRAMINE HCL Inactive PREDNISONE 20 MG TABS 2 daily for 5 days then 1 daily for 5 days PREDNISONE 20 MG TABS 954308 PREDNISONE Inactive HYDROCODONE-ACETAMINOPHEN 5-325 MG ORAL TABS 1 tab two times a day HYDROCODONE-ACETAMINOPHEN 5-325 MG ORAL TABS 694504 HYDROCODONE-ACETAMINOPHEN Inactive ZITHROMAX Z-EARNEST 250 MG TABS 2 today and then 1 daily for 4 days ZITHROMAX Z-EARNEST 250 MG TABS 9389506 AZITHROMYCIN Inactive GUAIFENESIN-CODEINE 100-10 MG/5ML SYRP 5ml every 4 to 6 hours as needed for cough GUAIFENESIN-CODEINE 100-10 MG/5ML SYRP 031361 GUAIFENESIN-CODEINE Inactive HALOPERIDOL 10 MG ORAL TABS 1 tab q.d HALOPERIDOL 10 MG ORAL TABS 466249 HALOPERIDOL Inactive ASPIRIN 325 MG ORAL TABS 1 tab q.d ASPIRIN 325 MG ORAL TABS 614517 ASPIRIN Inactive FLUTICASONE PROPIONATE 50 MCG/ACT SUSP 2 sprays each nostril daily before bed. FLUTICASONE PROPIONATE 50 MCG/ACT SUSP 9059140 FLUTICASONE PROPIONATE Inactive ZOFRAN 4 MG TABS 1 po q6hr PRN Nausea ZOFRAN 4 MG TABS 970310 ONDANSETRON HCL Inactive CEFDINIR 300 MG CAPS by mouth twice a day CEFDINIR 300 MG CAPS 223623 CEFDINIR Inactive PREDNISONE 20 MG TAB 2 tabs daily for 3 days, 1 tab daily for 3 days, 1/2 tab daily for 2 days PREDNISONE 20 MG TAB 574453 PREDNISONE Inactive BACTRIM DS 800-160 MG TABS 1 po BID x 7 days BACTRIM DS 800-160 MG TABS 19820521 SULFAMETHOXAZOLE-TRIMETHOPRIM Inactive DIFLUCAN 150 MG TABS 1 pill every other day x 2 doses DIFLUCAN 150 MG TABS 196563 FLUCONAZOLE Inactive BACTRIM DS 800-160 MG TABS 1 pill by mouth twice daily BACTRIM DS 800-160 MG TABS 19820521 SULFAMETHOXAZOLE-TRIMETHOPRIM Inactive KEFLEX 500 MG CAP 1 po TID x 10 days KEFLEX 500 MG CAP 784534 CEPHALEXIN Inactive Advance Directives Directive Description Start [...] % 11.0-15.0 platelet count 443 THOUSAND/UL 10*3/mm3 420-727 5028/03/01 mean platelet volume 8.2 fL 7.5-12.5 Lab [...] 369 10^3/MM^3 10*3/mm3 142-424 Lab Report: Chlamydia/GC APTIMA/[id number] - Lab chlamydia DNA probe NOT DETECTED NOT DETECTED Lab Report: Chlamydia/GC APTIMA/43060 - Microbiology Neisseria gonorrhoeae DNA probe NOT DETECTED NOT DETECTED Lab Report: Chlamydia/GC APTIMA/43490, Urinalysis, Complete, with Reflex ... - Lab chlamydia DNA probe NOT DETECTED NOT DETECTED Lab Report: Chlamydia/GC APTIMA/[id number], Urinalysis, Complete, with Reflex ... - Microbiology Neisseria gonorrhoeae DNA probe NOT DETECTED NOT DETECTED Lab Report: Chlamydia/GC APTIMA/[id number], Urinalysis, Complete, with Reflex ... - Urinalysis microalbumin/total urine volume 2 mg/L Units converted. See lab report for original value. microalbumin/creatinine ratio, urine 9 MCG/MG CREAT mg/L <30 Lab Report: Comp. Metabolic Panel - Chemistry sodium, serum 142 mmol/L 799-182 0378/06/08 carbon dioxide, venous blood 27.6 mmol/L 21.0-32.0 potassium, serum 4.0 mmol/L 3.5-5.2 chloride, serum 105 mmol/L 98-107 blood glucose 95 mg/dL 65-110 urea nitrogen, blood 8 mg/dL 7-18 creatinine, serum 0.75 mg/dL 0.55-1.30 alanine aminotransferase (SGPT), serum 49 U/L 12-78 aspartate aminotransferase (SGOT), serum 28 U/L 15-37 calcium, serum 9.4 mg/dL 8.5-10.1 bilirubin, serum, total 0.30 mg/dL 0.00-1.00 sodium, serum 140 mmol/L 408-954 1817/08/08 carbon dioxide, venous blood 33.7 mmol/L 21.0-32.0 [...] mg/dL Encounters Code Encounter Date Provider Facility CPT-45250 Level 3 Est. Patient 15:28:23 [employer] Suzan Boo [facility] CPT-99834 Level 4 Est. Patient 10:20:54 [employer] Suzan Boo [facility] CPT-98373 Level 3 Est. Patient 11:47:37 [employer] Ahmet Carbajal MD [facility] CPT-54358 Level 3 Est. Patient 10:40:11 [employer] Ahmet Carbajal MD [facility] CPT-02063 Level 3 Est. Patient 15:07:06 [employer] Neeraj Collins MD [facility] CPT-07692 Level 4 Est. Patient 14:45:00 [employer] Ahmet Carbajal MD [facility] CPT-53105 Level 3 Est. Patient 13:59:59 CDT Luigi Martínez [facility] CPT-47410 Level 3 Est. Patient 18:18:53 CDT Neeraj Collins MD [facility] CPT-36536 Level 3 Est. Patient 15:50:44 CDT Vishal Hui MD [facility] CPT-31382 Level 3 Est. Patient 11:36:17 CDT Ahmet Carbajal MD [facility] CPT-16473 Level 3 Est. Patient 13:29:16 CDT Vishal Hui MD [facility] CPT-19392 Level 3 Est. Patient 14:27:52 CDT Neeraj Collins MD [facility] CPT-30097 Level 3 Est. Patient 08:56:03 CDT Luigi Martínez [facility] CPT-09626 Level 4 Est. Patient 12:11:48 CDT Fabiola Johnson [facility] CPT-00943 Level 3 New Patient 16:53:37 CDT Albert Caldera MD [facility] CPT-74235 Level 3 Est. Patient 11:25:49 CDT Renzo Thornton DO [facility] CPT-23536 Level 3 Est. Patient 15:22:01 CDT Ahmet Carbajal MD [facility] CPT-81483 Level 4 Est. Patient 09:00:51 [employer] Vishal Hui MD [facility] CPT-65018 Level 3 Est. Patient 11:37:33 [employer] Vishal Hui MD [facility] CPT-84812 Level 3 Est. Patient 08:41:09 [employer] Vishal Hui MD [facility] CPT-08577 Level 4 Est. Patient 10:19:35 [employer] Vishal Hui MD [facility] CPT-44947 Level 3 Est. Patient 13:35:45 CDT Vishal Hui MD [facility] CPT-82275 Level 4 Est. Patient 10:08:37 CDT Vishal Hui MD [facility] CPT-39721 Level 3 Est. Patient 11:22:10 CDT Vishal Hui MD [facility] CPT-47163 Level 3 Est. Patient 11:03:32 CDT Sahara Rodriguez MD [facility] CPT-12644 Level 3 Est. Patient 09:41:35 CDT Vishal Hui MD [facility] CPT-46704 Level 3 Est. Patient 12:00:41 CDT Neeraj Collins MD [facility] CPT-98470 Level 3 Est. Patient 09:16:24 CDT Vishal Hui MD [facility] CPT-91606 Level 4 Est. Patient 13:59:09 CDT Neeraj Collins MD [facility] CPT-66278 Level 3 Est. Patient 15:19:43 CDT Renzo Thornton [facility] CPT-13753 Level 3 Est. Patient 18:10:26 CDT Sahara Rodriguez MD [facility]-94201 Level 3 Est. Patient 14:49:50 CDT Vishal Hui MD [facility] CPT-62833 Level 4 Est. Patient 18:41:46 CDT Neeraj Collins MD [facility] CPT-54363 Level 4 Est. Patient 09:18:38 [employer] Vishal Hui MD [facility] CPT-27244 Level 3 Est. Patient 14:43:55 [employer] Vishal Hui MD [facility] CPT-81797 Level 3 Est. Patient 15:26:33 [employer] Sahara Rodriguez MD [facility] CPT-80671 Level 3 Est. Patient 10:32:14 [employer] Vishal Hui MD [facility] CPT-60755 Level 3 Est. Patient 15:12:52 [employer] Vishal Hui MD [facility] CPT-21236 Level 4 Est. Patient 09:19:27 CDT Vishal Hui MD [facility] CPT-50923 Level 3 Est. Patient 15:53:00 CDT Renzo Thornton [facility] CPT-63786 Level 3 Est. Patient 15:50:30 CDT Renzo Thornton [facility] CPT-02016 Level 3 Est. Patient 16:55:24 CDT Vishal Hui MD [facility] Procedures Code Procedure Name Date Entry Date Standard Description CPT-G0439 [facility] Annual Wellness Exam 09:30:58 [employer] CPT-62603 TSH - LAB USE ONLY 08:50:26 [employer] CPT-63222 CBC - LAB USE ONLY 08:50:26 [employer] CPT-73641 Venipuncture Draw Fee 08:50:26 [employer] CPT-61947 Abx/Therapy Injection 17:34:30 [employer] CPT-82602 Nexplanon Removal with Reinsertion 14:09:32 CDT CPT-J7307 Nexplanon (Implant) 14:09:32 CDT CPT-OV Office Visit 14:09:32 CDT CPT-31931 UA w micro - LAB USE ONLY 16:21:13 CDT CPT-04539 Wet Mount - LAB USE ONLY 16:21:13 CDT CPT-56286 First Vx - Ix admin for Medicare patients 14:37:47 CDT CPT-75140 Fluzone Preservative Free Intramuscular Suspension 14:37 :47 CDT CPT-64448 Abx/Therapy Injection 13:54:22 CDT CPT-08802 Abx/Therapy Injection 08:47:09 CDT CPT-83079 Abx/Therapy Injection 13:29:56 CDT CPT-73617 Abx/Therapy Injection 08:36:16 CDT CPT-34918 Wet Mount - LAB USE ONLY 17:44:58 CDT CPT-10605 UA w micro - LAB USE ONLY 17:44:58 CDT CPT-29933 CMP - LAB USE ONLY 17:44:58 CDT CPT-29398 Venipuncture Draw Fee 17:44:58 CDT CPT-03690 Cervical Min 4V - XRAY USE ONLY 09:01:40 CDT CPT-22391 Chest 2V Frontal and Lat - XRAY USE ONLY 11:06:31 CDT CPT-53529 EKG Trac and Interp - XRAY USE ONLY 11:31:43 CDT 08/26 CPT-J3420 Vitamin B12 1000mcg (Cyanocobalamin) 08:10:26 [employer] 04/12 CPT-84166 Abx/Therapy Injection 08:10:26 [employer] CPT-G0438 Initial Annual Wellness Exam 19:01:01 [employer] CPT-J3420 Vitamin B12 1000mcg (Cyanocobalamin) 16:57:46 CDT 08/14 CPT-60122 Recombivax HB Injection Suspension 5 MCG/0.5ML 08:37:50 [employer] CPT-32022 Immunization Single Admin 08:37:50 [employer] CPT-J3420 Vitamin B12 1000mcg (Cyanocobalamin) 08:32:16 [employer] 03/11 CPT-30079 Abx/Therapy Injection 08:32:16 [employer] CPT-30652 Chest 2V Frontal and Lat 11:46:38 [employer] CPT-54353 Venipuncture Draw Fee 09:12:45 [employer] CPT-J3420 Vitamin B12 1000mcg (Cyanocobalamin) 08:50:15 [employer] 02/08 CPT-84065 Abx/Therapy Injection 08:50:15 [employer] CPT-Cryo Cryotherapy 10:19:35 [employer] CPT-000 Give Appropriate Flu Vaccine 09:22:16 CDT CPT-J3420 Vitamin B12 1000mcg (Cyanocobalamin) 19:08:57 CDT 01/11 CPT-76625 Abx/Therapy Injection 19:08:57 CDT CPT-J3420 Vitamin B12 1000mcg (Cyanocobalamin) 08:19:08 CDT 12/11 CPT-33161 Abx/Therapy Injection 08:19:08 CDT CPT-J3420 Vitamin B12 1000mcg (Cyanocobalamin) 14:48:00 CDT 11/09 CPT-12566 Abx/Therapy Injection 14:47:59 CDT CPT-J3420 Vitamin B12 1000mcg (Cyanocobalamin) 08:34:04 CDT 10/09 CPT-92191 Abx/Therapy Injection 08:34:04 CDT CPT-J3420 Vitamin B12 1000mcg (Cyanocobalamin) 09:18:52 CDT 09/11 CPT-77968 Abx/Therapy Injection 09:18:52 CDT CPT-J3420 Vitamin B12 1000mcg (Cyanocobalamin) 08:35:44 CDT 09/04 CPT-99867 Abx/Therapy Injection 08:35:44 CDT CPT-40940 Immunization Single Admin 11:07:16 CDT CPT-60109 Hepatitis B adult IM 11:07:16 CDT CPT-J3420 Vitamin B12 1000mcg (Cyanocobalamin) 11:00:49 CDT 08/28 CPT-J1040 Depo Medrol 80 mg (Methyl Prednisolone Acetate) 11:00: 49 CDT CPT-62382 Abx/Therapy Injection 11:00:49 CDT CPT-J1040 Depo Medrol 80 mg (Methyl Prednisolone Acetate) 09:16: 23 CDT CPT-J3420 Vitamin B12 1000mcg (Cyanocobalamin) 08:27:05 CDT 08/20 CPT-35030 Abx/Therapy Injection 08:27:05 CDT CPT-18579 Recombivax HB Injection Suspension 5 MCG/0.5ML 10:00:41 CDT CPT-26491 Administration single or combination vaccine inc oral 10 :00:41 CDT CPT-28898 Sono transvag pelvis non OB uterus ovaries cervix 16:36: 57 CDT CPT-53772 LS spine comp w obliq 09:50:55 [employer] CPT-78172 Abd compl w upright 09:50:55 [employer] CPT-J1100 Decadron 4mg (Dexamethasone) 15:51:24 [employer] CPT-J1030 Depo Medrol 40 mg (Methyl Prednisolone Acetate) 15:51: 24 [employer] CPT-42559 Abx/Therapy Injection 15:51:24 [employer] CPT-J1100 Decadron 4mg (Dexamethasone) 15:26:33 [employer] CPT-J1030 Depo Medrol 40 mg (Methyl Prednisolone Acetate) 15:26: 33 [employer] CPT-87900 Sono retroperitoneal complete kidneys and bladder 17:15: 30 CDT CPT-55613 Abd compl w upright 16:09:25 CDT CPT-J1100 Decadron 8mg (Dexamethasone) 17:07:57 CDT CPT-72565 Abx/Therapy Injection 17:07:57 CDT CPT-J1100 Decadron 8mg (Dexamethasone) 16:55:24 CDT CPT-96444 Chest 2V Frontal and Lat 16:32:44 CDT
--- OUTSIDE RECORDS SUMMARY | 2016-11-04 21:05 | XMS REPORT | Clinical Summary ---
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 Juliet Kimbrough PIN GAME MACHINE INSPECTOR Dependence on other enabling machines and devices [...] 1 po TID x 10 days CEPHALEXIN 86052690912 Active Vishal Hui MD Active ABILIFY MAINTENA 400 MG IM SUSR Injection once per month ARIPIPRAZOLE 97892892338 Active Juliet Kimbrough APRN Active PREDNISONE 20 MG TAB 2 tabs daily for 4 days, 1 tab daily for 4 days, 1/2 tab daily for 4 days PREDNISONE 78442466914 Active Vishal Hui MD Active IMITREX 50 MG ORAL TABS 1/2 tab every 6 hours prn SUMATRIPTAN SUCCINATE 83073280947 Active Luigi Martínez APRN Active AMBIEN 5 MG ORAL TABS 1 tab at bedtime ZOLPIDEM TARTRATE 05872399471 Active Luigi Martínez APRN Active PROZAC 20 MG ORAL CAPS 1 tab daily FLUOXETINE HCL 40926901418 Active Luigi Martínez APRN Active ABILIFY 15 MG ORAL TABS 1 tab daily ARIPIPRAZOLE 48463155565 Active Luigi Martínez APRN Active MINIPRESS 2 MG CAPS 4 cap po at night PRAZOSIN HCL 09483212105 Active Luigi Martínez APRN Active TOPAMAX 50 MG ORAL TABS 1 tab twice daily TOPIRAMATE 80733528785 Active Vishal Hui MD Active SAPHRIS 5 MG SUBL 1 po bid ASENAPINE MALEATE 63213967800 No Longer Active Luigi Martínez APRN Active LATUDA 80 MG TABS Take one by mouth daily LURASIDONE HCL 51680078050 No Longer Active Luigi Martínez APRN Active AMLODIPINE BESYLATE 5 MG TABS 1 tablet by mouth daily AMLODIPINE BESYLATE 89768857181 No Longer Active Luigi Martínez APRN Active AMITRIPTYLINE HCL 100 MG TAB one at hs AMITRIPTYLINE HCL 93395349347 No Longer Active Vishal Hui MD Active TRAZODONE HCL 100 MG TAB take 1 at bedtime TRAZODONE HCL 48763769251 No Longer Active Vishal Hui MD Active VYVANSE 40 MG CAPS 1 daily, LISDEXAMFETAMINE DIMESYLATE 81831339317 No Longer Active Vishal Hui MD Active IBUPROFEN 600 MG TAB 1 po TID PRN IBUPROFEN 50022530723 No Longer Active Vishal Hui MD Active MIRALAX PACK 1 po qd PRN Constipation POLYETHYLENE GLYCOL 3350 41178009983 Active Vishal Hui MD Active PROZAC 20 MG CAP Take one by mouth daily FLUOXETINE HCL 10318621190 No Longer Active Vishal Hui MD Active ZOFRAN 4 MG TABS 1 po q6hr PRN Nausea ONDANSETRON HCL Active Vishal Hui MD Active BACTRIM DS 800-160 MG TABS 1 pill by mouth twice daily SULFAMETHOXAZOLE-TRIMETHOPRIM 14976876494 No Longer Active Sahara Rodriguez MD PhD Active DIFLUCAN 150 MG TAB 1 tablet by mouth daily FLUCONAZOLE 04324082352 No Longer Active Vishal Hui MD Active TIZANIDINE HCL 4 MG TABS 1 po q6hr PRN Muscle Spasm/Back Pain TIZANIDINE HCL 17423731046 Active Luigi Martínez APRN Active CLINDAMYCIN HCL 150 MG CAPS 1 four times a day CLINDAMYCIN HCL 20443656093 No Longer Active Neeraj Collins MD Active KEFLEX 500 MG ORAL CAPS 1 cap QID by mouth CEPHALEXIN 66662606786 No Longer Active Neeraj Collins MD Active DIFLUCAN 150 MG TABS 1 pill every other day x 2 doses FLUCONAZOLE 61702255750 No Longer Active Sahara Rodriguez MD PhD Active MELATONIN 3 MG CAPS 2 po q hs MELATONIN 63877107636 No Longer Active Sahara Rodriguez MD PhD Active MULTIVITAMINS CAPS Take one by mouth daily MULTIPLE VITAMIN 08272849040 No Longer Active Sahara Rodriguez MD PhD Active BACTRIM DS 800-160 MG TAB 1 tab by mouth twice daily TRIMETHOPRIM-SULFAMETHOXAZOLE 24436293773 No Longer Active Sahara Rodriguez MD PhD Active [facility] PROBIOTIC ORAL CHEW 2 daily po PROBIOTIC PRODUCT 16693835091 No Longer Active Sahara Rodriguez MD PhD Active BACTRIM DS 800-160 MG TABS 1 po BID x 7 days SULFAMETHOXAZOLE-TRIMETHOPRIM 84914779234 No Longer Active Vishal Hui MD Active CHANTIX STARTING MONTH EARNEST 0.5 MG X 11 & 1 MG X 42 TABS 0.5mg daily for 3 days , then 0.5mg BID for 4 days, then 1mg BID VARENICLINE TARTRATE 64479745376 No Longer Active TAMARA Gray Active METOPROLOL TARTRATE 50 MG TAB 1 po bid METOPROLOL TARTRATE 85714883030 Active Vishal Hui MD Active VERAPAMIL HCL CR 120 MG TAB CR 1 po bid VERAPAMIL HCL 95424440473 No Longer Active Vishal Hui MD Active METOPROLOL SUCCINATE 50 MG TB24 1 tablet by mouth daily METOPROLOL SUCCINATE 79454673598 No Longer Active Vishal Hui MD Active TRAMADOL HCL 50 MG TABS 1-2 po TID PRN Pain TRAMADOL HCL 65572748115 Active Vishal Hui MD Active SAPHRIS 10 MG SUBL 1 tab po bid ASENAPINE MALEATE 14636376255 No Longer Active Vishal Hui MD Active LISINOPRIL 20 MG TABS 1 tab po qd LISINOPRIL 91536070975 No Longer Active Vishal Hui MD Active BENADRYL 25 MG CAP 2 po tid prn anxiety DIPHENHYDRAMINE HCL 18298361668 Active Vishal Hui MD Active LATUDA 20 MG TABS Take one by mouth daily LURASIDONE HCL 97593064881 No Longer Active Vishal Hui MD Active TRAZODONE HCL 50 MG TABS 1/2 tab po qd prn for anxiety TRAZODONE HCL 59632160012 No Longer Active Vishal Hui MD Active PIROXICAM 20 MG CAPS 1 cap po qd PRN Pain PIROXICAM 12007595204 Active Vishal Hui MD Active OMEPRAZOLE 20 MG TBEC 1 po q a.m. 30min prior to first food intake OMEPRAZOLE 42852240024 Active Vishal Hui MD Active RANITIDINE HCL 150 MG CAPS 1 twice a day RANITIDINE HCL 71971160594 Active Vishal Hui MD Active LINZESS 290 MCG CAPS Take one by mouth daily LINACLOTIDE 80597113147 No Longer Active Vishal Hui MD Active SAPHRIS 5 MG SUBL 1 tab po qd ASENAPINE MALEATE 89621833283 No Longer Active Vishal Hui MD Active ZALEPLON 10 MG CAPS 1 cap po every other night ZALEPLON 35621916496 No Longer Active Vishal Hui MD Active LYRICA 50 MG CAPS 1 tab po TID PREGABALIN 11583987247 No Longer Active Vishal Hui MD Active LORATADINE 10 MG TABS 1 tab po qd LORATADINE 45386973851 No Longer Active Vishal Hui MD Active VERAPAMIL HCL ER 180 MG CR-TABS 1 tab po bid VERAPAMIL HCL 64429802488 No Longer Active Vishal Hui MD Active MIRALAX POWD 1 capfull once daily POLYETHYLENE GLYCOL 3350 88695182609 No Longer Active Vishal Hui MD Active PREDNISONE 20 MG TABS 1 tab po qd PREDNISONE 22814789990 No Longer Active Renzo Thornton DO Active LEVOFLOXACIN 500 MG TABS 1 tab po qd LEVOFLOXACIN 20032409069 No Longer Active Renzo Thornton DO Active BUSPIRONE HCL 15 MG TABS 1 tab po TID BUSPIRONE HCL 52465007937 No Longer Active Renzo Thornton DO Active BENZTROPINE MESYLATE 1 MG TABS 1 tab po qd BENZTROPINE MESYLATE 72192965625 No Longer Active Renzo Thornton DO Active ATENOLOL 25 MG TABS 1 tab po qd ATENOLOL 49525236048 No Longer Active Renzo Thornton DO Active ESCITALOPRAM OXALATE 20 MG TABS 1 tab po qd ESCITALOPRAM OXALATE 33772547790 No Longer Active Renzo Thornton DO Active ADVAIR DISKUS 250-50 MCG/DOSE AEPB 1 puff BID FLUTICASONE-SALMETEROL 25765841102 No Longer Active Renzo Thornton DO Active PREDNISONE 20 MG TAB 2 tabs daily for 3 days, 1 tab daily for 3 days, 1/2 tab daily for 2 days PREDNISONE 41534021922 No Longer Active Vishal Hui MD Active CEFDINIR 300 MG CAPS by mouth twice a day CEFDINIR 40598542207 No Longer Active Vishal Hui MD Active LANSOPRAZOLE 30 MG CPDR 1 cap po qd LANSOPRAZOLE 60274058944 No Longer Active Vishal Hui MD Active BACLOFEN 20 MG TABS 1 tab po tid BACLOFEN 85815494055 No Longer Active Vishal Hui MD Active ADVAIR DISKUS 250-50 MCG/DOSE AEPB 1 puff BID ADVAIR DISKUS 250-50 MCG/DOSE AEPB FLUTICASONE-SALMETEROL Inactive ESCITALOPRAM OXALATE 20 MG TABS 1 tab po qd ESCITALOPRAM OXALATE 20 MG TABS 640937 ESCITALOPRAM OXALATE Inactive ATENOLOL 25 MG TABS 1 tab po qd ATENOLOL 25 MG TABS 118612 ATENOLOL Inactive BENZTROPINE MESYLATE 1 MG TABS 1 tab po qd BENZTROPINE MESYLATE 1 MG TABS 917328 BENZTROPINE MESYLATE Inactive BUSPIRONE HCL 15 MG TABS 1 tab po TID BUSPIRONE HCL 15 MG TABS 496639 BUSPIRONE HCL Inactive LEVOFLOXACIN 500 MG TABS 1 tab po qd LEVOFLOXACIN 500 MG TABS 131831 LEVOFLOXACIN Inactive PREDNISONE 20 MG TABS 1 tab po qd PREDNISONE 20 MG TABS 149755 PREDNISONE Inactive MIRALAX POWD 1 capfull once daily MIRALAX POWD 163639 POLYETHYLENE GLYCOL 3350 Inactive VERAPAMIL HCL ER 180 MG CR-TABS 1 tab po bid VERAPAMIL HCL ER 180 MG CR-TABS VERAPAMIL HCL Inactive LORATADINE 10 MG TABS 1 tab po qd LORATADINE 10 MG TABS 249913 LORATADINE Inactive LYRICA 50 MG CAPS 1 tab po TID LYRICA 50 MG CAPS PREGABALIN Inactive ZALEPLON 10 MG CAPS 1 cap po every other night ZALEPLON 10 MG CAPS 342085 ZALEPLON Inactive SAPHRIS 5 MG SUBL 1 tab po qd SAPHRIS 5 MG SUBL ASENAPINE MALEATE Inactive TRAZODONE HCL 50 MG TABS 1/2 tab po qd prn for anxiety TRAZODONE HCL 50 MG TABS 605109 TRAZODONE HCL Inactive LATUDA 20 MG TABS Take one by mouth daily LATUDA 20 MG TABS LURASIDONE HCL Inactive LISINOPRIL 20 MG TABS 1 tab po qd LISINOPRIL 20 MG TABS 722571 LISINOPRIL Inactive SAPHRIS 10 MG SUBL 1 [...] twice daily BACTRIM DS 800-160 MG TAB 165750 TRIMETHOPRIM-SULFAMETHOXAZOLE Inactive MULTIVITAMINS CAPS Take one by mouth daily MULTIVITAMINS CAPS MULTIPLE VITAMIN Inactive MELATONIN 3 MG CAPS 2 po q hs MELATONIN 3 MG CAPS 587875 MELATONIN Inactive KEFLEX 500 MG ORAL CAPS 1 cap QID by mouth KEFLEX 500 MG ORAL CAPS 687494 CEPHALEXIN Inactive CLINDAMYCIN HCL 150 MG CAPS 1 four times a day CLINDAMYCIN HCL 150 MG CAPS 19740326 CLINDAMYCIN HCL Inactive DIFLUCAN 150 MG TAB 1 tablet by mouth daily DIFLUCAN 150 MG TAB 19751126 FLUCONAZOLE Inactive PROZAC 20 MG CAP Take one by mouth daily PROZAC 20 MG CAP 725587 FLUOXETINE HCL Inactive IBUPROFEN 600 MG TAB 1 po TID PRN IBUPROFEN 600 MG TAB 584957 IBUPROFEN Inactive VYVANSE 40 MG CAPS 1 daily, VYVANSE 40 MG CAPS LISDEXAMFETAMINE DIMESYLATE Inactive TRAZODONE HCL 100 MG TAB take 1 at bedtime TRAZODONE HCL 100 MG TAB 429815 TRAZODONE HCL Inactive AMITRIPTYLINE HCL 100 MG TAB one at hs AMITRIPTYLINE HCL 100 MG TAB 324406 AMITRIPTYLINE HCL Inactive AMLODIPINE BESYLATE 5 MG TABS 1 tablet by mouth daily AMLODIPINE BESYLATE 5 MG TABS 658149 AMLODIPINE BESYLATE Inactive LATUDA 80 MG TABS Take one by mouth daily LATUDA 80 MG TABS LURASIDONE HCL Inactive SAPHRIS 5 MG SUBL 1 po bid SAPHRIS 5 MG SUBL ASENAPINE MALEATE Inactive CEFDINIR 300 MG CAPS by mouth twice a day CEFDINIR 300 MG CAPS 898056 CEFDINIR Inactive PREDNISONE 20 MG TAB 2 tabs daily for 3 days, 1 tab daily for 3 days, 1/2 tab daily for 2 days PREDNISONE 20 MG TAB 571194 PREDNISONE Inactive BACTRIM DS 800-160 MG TABS 1 po BID x 7 days BACTRIM DS 800-160 MG TABS 19820521 SULFAMETHOXAZOLE-TRIMETHOPRIM Inactive DIFLUCAN 150 MG TABS 1 pill every other day x 2 doses DIFLUCAN 150 MG TABS 105984 FLUCONAZOLE Inactive BACTRIM DS 800-160 MG TABS [...] temperature E&M 97.9 [degF] Body temperature weight E&Wilman - 3141-9 270 [lb_av] Weight Measured blood [...] % 11.6-14.8 platelet count 394 10^3/MM^3 10*3/mm3 262-294 1806/01/11 leukocyte count, blood 13.8 10^3/MM^3 10*3/mm3 4.6-10.2 [...] Panel - Chemistry sodium, serum 139 mmol/L 188-404 6574/12/03 carbon dioxide, venous blood 28.5 mmol/L 21.0-32.0 [...] 5.5 % 4.3-6.0 cholesterol, serum 159 mg/dL 306-220 5090/12/03 triglyceride, serum, fasting 118 mg/dL 30-200 HDL [...] ... - Chemistry sodium, serum 140 mmol/L 954-284 2229/05/28 potassium, serum 4.2 mmol/L 3.5-5.2 chloride, serum [...] Panel - Chemistry sodium, serum 141 mmol/L 679-656 4618 potassium, serum 4.3 mmol/L 3.5-5.2 chloride, serum 106 mmol/L 98-107 carbon dioxide, venous blood 25.7 mmol/L 21.0-32.0 blood glucose 119 mg/dL 65-110 urea nitrogen, blood 22 mg/dL 7-18 creatinine, serum 0.90 mg/dL 0.60-1.30 alanine aminotransferase (SGPT), serum 28 U/L 12-78 aspartate aminotransferase (SGOT), serum 13 U/L 15-37 calcium, serum 8.5 mg/dL 8.5-10.1 bilirubin, serum, total 0.20 mg/dL 0.00-1.00 sodium, serum 139 mmol/L 491-570 6681/12/22 carbon dioxide, venous blood 26.8 mmol/L 21.0-32.0 potassium, serum 4.2 mmol/L 3.5-5.2 chloride, serum 103 mmol/L 98-107 blood glucose 115 mg/dL 65-110 urea nitrogen, blood 20 mg/dL 7-18 creatinine, serum 0.90 mg/dL 0.55-1.30 alanine aminotransferase (SGPT), serum 38 U/L - aspartate aminotransferase (SGOT), serum 19 U/L 15-37 calcium, serum 8.6 mg/dL 8.5-10.1 bilirubin, serum, total 0.30 mg/dL 0.00-1.00 sodium, serum 139 mmol/L 395-877 8691/01/11 carbon dioxide, venous blood 26.6 mmol/L 21.0-32.0 [...] Rate - Chemistry sodium, serum 139 mmol/L 833-423 2839/12/11 carbon dioxide, venous blood 25.4 mmol/L 21.0-32.0 [...] 5.5 5.0-8.5 Lab Report: UADIP W/MICRO, AUTO, [facility] [place] - Chemistry protein, total urine random Negative mg/dL Negative RBC, urine, dipstick Negative Negative human chorionic gonadotropin, urine, qualitative (urine test) Negative Negative Lab Report: UADIP W/MICRO, AUTO, [facility] [place] - Urinalysis urobilinogen, urine, semiquantitative (dipstick) 0.2 Normal leukocyte esterase, urine, by dipstick Negative Negative nitrite, urine, semiquantitative Negative Negative glucose, urine, semiquantitative Negative Negative ketones, urine, by test strip Negative Negative bilirubin, urine Negative Negative urine color Yellow Colorless;Lightyellow;Straw;Yellow appearance, urine Clear Clear specific gravity, urine 1.025 1.000-1.030 pH, urine, semiquantitative 7.0 5.0-8.5 Lab Report: Varicella-Zoater Inga IgG,IgM/47585, HEP Be Antibody/556, RUB ... - Serology rubella antibody, serum, IgG 2.88 Encounters Code Encounter Date Provider Facility CPT-39563 Level 4 Est. Patient 09:00:51 NEUROLOGICAL SURGEON Vishal Hui MD [facility] CPT-82758 Level 3 Est. Patient 11:37:33 NEUROLOGICAL SURGEON Vishal Hui MD [facility] CPT-60979 Level 3 Est. Patient 08:41:09 NEUROLOGICAL SURGEON Vishal Hui MD [facility] CPT-07648 Level 4 Est. Patient 10:19:35 NEUROLOGICAL SURGEON Vishal Hui MD [facility] CPT-50427 Level 3 Est. Patient 13:35:45 CDT Vishal Hui MD [facility] CPT-07753 Level 4 Est. Patient 10:08:37 CDT Vishal Hui MD [facility] CPT-72917 Level 3 Est. Patient 11:22:10 CDT Vishal Hui MD [facility] CPT-19479 Level 3 Est. Patient 11:03:32 CDT Sahara Rodriguez MD PhD [facility] CPT-48577 Level 3 Est. Patient 09:41:35 CDT Vishal Hui MD [facility] CPT-99222 Level 3 Est. Patient 12:00:41 CDT Neeraj Collins MD [facility] CPT-43097 Level 3 Est. Patient 09:16:24 CDT Vishal Hui MD [facility] CPT-82686 Level 4 Est. Patient 13:59:09 CDT Neeraj Collins MD [facility] CPT-09562 Level 3 Est. Patient 15:19:43 CDT Renzo Thornton DO [facility] CPT-51877 Level 3 Est. Patient 18:10:26 CDT Sahara Rodriguez MD PhD [facility] CPT-24464 Level 3 Est. Patient 14:49:50 CDT Vishal Hui MD [facility] CPT-36723 Level 4 Est. Patient 18:41:46 CDT Neeraj Collins MD [facility] CPT-94168 Level 4 Est. Patient 09:18:38 NEUROLOGICAL SURGEON Vishal Hui MD [facility] CPT-03705 Level 3 Est. Patient 14:43:55 NEUROLOGICAL SURGEON Vishal Hui MD [facility] CPT-70177 Level 3 Est. Patient 15:26:33 NEUROLOGICAL SURGEON Sahara Rodriguez MD [facility] CPT-41457 Level 3 Est. Patient 10:32:14 NEUROLOGICAL SURGEON Vishal Hui MD [facility] CPT-63685 Level 3 Est. Patient 15:12:52 NEUROLOGICAL SURGEON Vishal Hui MD [facility] CPT-48567 Level 4 Est. Patient 09:19:27 CDT Vishal Hui MD [facility] CPT-66751 Level 3 Est. Patient 15:53:00 CDT Renzo Thornton [facility] CPT-84460 Level 3 Est. Patient 15:50:30 CDT Renzo Thornton [facility] CPT-62077 Level 3 Est. Patient 16:55:24 CDT Vishal Hui MD [facility] Procedures Code Procedure Name Date Entry Date Standard Description CPT-J3420 Vitamin B12 1000mcg (Cyanocobalamin) 08:10:26 NEUROLOGICAL SURGEON 04/12 CPT-24569 Abx/Therapy Injection 08:10:26 NEUROLOGICAL SURGEON CPT-G0438 Initial Annual Wellness Exam 19:01:01 NEUROLOGICAL SURGEON CPT-J3420 Vitamin B12 1000mcg (Cyanocobalamin) 16:57:46 CDT 08/14 CPT-71632 Recombivax HB Injection Suspension 5 MCG/0.5ML 08:37:50 NEUROLOGICAL SURGEON CPT-06201 Immunization Single Admin 08:37:50 NEUROLOGICAL SURGEON CPT-J3420 Vitamin B12 1000mcg (Cyanocobalamin) 08:32:16 NEUROLOGICAL SURGEON 03/11 CPT-71340 Abx/Therapy Injection 08:32:16 NEUROLOGICAL SURGEON CPT-55899 Chest 2V Frontal and Lat 11:46:38 NEUROLOGICAL SURGEON CPT-89986 Venipuncture Draw Fee 09:12:45 NEUROLOGICAL SURGEON CPT-J3420 Vitamin B12 1000mcg (Cyanocobalamin) 08:50:15 NEUROLOGICAL SURGEON 02/08 CPT-19195 Abx/Therapy Injection 08:50:15 NEUROLOGICAL SURGEON CPT-Cryo Cryotherapy 10:19:35 NEUROLOGICAL SURGEON CPT-000 Give Appropriate Flu Vaccine 09:22:16 CDT CPT-J3420 Vitamin B12 1000mcg (Cyanocobalamin) 19:08:57 CDT 01/11 CPT-63960 Abx/Therapy Injection 19:08:57 CDT CPT-J3420 Vitamin B12 1000mcg (Cyanocobalamin) 08:19:08 CDT 12/11 CPT-83763 Abx/Therapy Injection 08:19:08 CDT CPT-J3420 Vitamin B12 1000mcg (Cyanocobalamin) 14:48:00 CDT 11/09 CPT-56243 Abx/Therapy Injection 14:47:59 CDT CPT-J3420 Vitamin B12 1000mcg (Cyanocobalamin) 08:34:04 CDT 10/09 CPT-49351 Abx/Therapy Injection 08:34:04 CDT CPT-J3420 Vitamin B12 1000mcg (Cyanocobalamin) 09:18:52 CDT 09/11 CPT-40204 Abx/Therapy Injection 09:18:52 CDT CPT-J3420 Vitamin B12 1000mcg (Cyanocobalamin) 08:35:44 CDT 09/04 CPT-97099 Abx/Therapy Injection 08:35:44 CDT CPT-96469 Immunization Single Admin 11:07:16 CDT CPT-58689 Hepatitis B adult IM 11:07:16 CDT CPT-J3420 Vitamin B12 1000mcg (Cyanocobalamin) 11:00:49 CDT 08/28 CPT-J1040 Depo Medrol 80 mg (Methyl Prednisolone Acetate) 11:00: 49 CDT CPT-86475 Abx/Therapy Injection 11:00:49 CDT CPT-J1040 Depo Medrol 80 mg (Methyl Prednisolone Acetate) 09:16: 23 CDT CPT-J3420 Vitamin B12 1000mcg (Cyanocobalamin) 08:27:05 CDT 08/20 CPT-83531 Abx/Therapy Injection 08:27:05 CDT CPT-72208 Recombivax HB Injection Suspension 5 MCG/0.5ML 10:00:41 CDT CPT-60626 Administration single or combination vaccine inc oral 10 :00:41 CDT CPT-73630 Sono transvag pelvis non OB uterus ovaries cervix 16:36: 57 CDT CPT-28420 LS spine comp w obliq 09:50:55 NEUROLOGICAL SURGEON CPT-64478 Abd compl w upright 09:50:55 NEUROLOGICAL SURGEON CPT-J1100 Decadron 4mg (Dexamethasone) 15:51:24 NEUROLOGICAL SURGEON CPT-J1030 Depo Medrol 40 mg (Methyl Prednisolone Acetate) 15:51: 24 NEUROLOGICAL SURGEON CPT-32962 Abx/Therapy Injection 15:51:24 NEUROLOGICAL SURGEON CPT-J1100 Decadron 4mg (Dexamethasone) 15:26:33 NEUROLOGICAL SURGEON CPT-J1030 Depo Medrol 40 mg (Methyl Prednisolone Acetate) 15:26: 33 NEUROLOGICAL SURGEON CPT-48664 Sono retroperitoneal complete kidneys and bladder 17:15: 30 CDT CPT-74622 Abd compl w upright 16:09:25 CDT CPT-J1100 Decadron 8mg (Dexamethasone) 17:07:57 CDT CPT-92281 Abx/Therapy Injection 17:07:57 CDT CPT-J1100 Decadron 8mg (Dexamethasone) 16:55:24 CDT CPT-60382 Chest 2V Frontal and Lat 16:32:44 CDT
--- OUTSIDE RECORDS SUMMARY | 2016-11-04 21:08 | XMS REPORT | Clinical Summary ---
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 is not sure of the dose.) DICLOFENAC POTASSIUM TABS 68221940263 Active Ahmet Carbajal MD Active MIRALAX PACK 1 po qd PRN Constipation POLYETHYLENE GLYCOL 3350 88215925883 No Longer Active Ahmet Carbajal MD Active MINIPRESS 2 MG CAPS 4 cap po at night PRAZOSIN HCL 33112281783 No Longer Active Ahmet Carbajal MD Active PIROXICAM 20 MG CAPS 1 cap po qd PRN Pain PIROXICAM 18826159917 No Longer Active Ahmet Carbajal MD Active TRAMADOL HCL 50 MG TABS 1-2 po TID PRN Pain TRAMADOL HCL 23979140588 No Longer Active Ahmet Carbajal MD Active METOPROLOL TARTRATE 50 MG TAB 1 po bid METOPROLOL TARTRATE 92477354262 No Longer Active Ahmet Carbajal MD Active ABILIFY 15 MG ORAL TABS 1 tab daily ARIPIPRAZOLE 47820271178 No Longer Active Ahmet Carbajal MD Active PROZAC 20 MG ORAL CAPS 1 tab daily FLUOXETINE HCL 89899368127 No Longer Active Ahmet Carbajal MD Active AMBIEN 5 MG ORAL TABS 1 tab at bedtime ZOLPIDEM TARTRATE 60802872683 No Longer Active Ahmet Carbajal MD Active PREDNISONE 20 MG TAB 2 tabs daily for 4 days, 1 tab daily for 4 days, 1/2 tab daily for 4 days PREDNISONE 03504595050 No Longer Active Ahmet Carbajal MD Active KEFLEX 500 MG CAP 1 po TID x 10 days CEPHALEXIN 67977589701 No Longer Active Vishal Hui MD Active ABILIFY MAINTENA 400 MG IM SUSR Injection once per month ARIPIPRAZOLE 39877418121 Active Juliet Kimbrough APRN Active IMITREX 50 MG ORAL TABS 1/2 tab every 6 hours prn SUMATRIPTAN SUCCINATE 99241660115 Active Luigi Martínez APRN Active TOPAMAX 50 MG ORAL TABS 1 tab twice daily TOPIRAMATE 92432328048 Active Vishal Hui MD Active SAPHRIS 5 MG SUBL 1 po bid ASENAPINE MALEATE 61976826921 No Longer Active Luigi Martínez APRN Active LATUDA 80 MG TABS Take one by mouth daily LURASIDONE HCL 33985311846 No Longer Active Luigi Martínez APRN Active AMLODIPINE BESYLATE 5 MG TABS 1 tablet by mouth daily AMLODIPINE BESYLATE 32300217179 No Longer Active Luigi Martínez APRN Active AMITRIPTYLINE HCL 100 MG TAB one at hs AMITRIPTYLINE HCL 44896146799 No Longer Active Vishal Hui MD Active TRAZODONE HCL 100 MG TAB take 1 at bedtime TRAZODONE HCL 39698088691 No Longer Active Vishal Hui MD Active VYVANSE 40 MG CAPS 1 daily, LISDEXAMFETAMINE DIMESYLATE 15203502991 No Longer Active Vishal Hui MD Active IBUPROFEN 600 MG TAB 1 po TID PRN IBUPROFEN 69922819301 No Longer Active Vishal Hui MD Active PROZAC 20 MG CAP Take one by mouth daily FLUOXETINE HCL 21097689006 No Longer Active Vishal Hui MD Active ZOFRAN 4 MG TABS 1 po q6hr PRN Nausea ONDANSETRON HCL Active Vishal Hui MD Active BACTRIM DS 800-160 MG TABS 1 pill by mouth twice daily SULFAMETHOXAZOLE-TRIMETHOPRIM 35695641435 No Longer Active Sahara Rodriguez MD PhD Active DIFLUCAN 150 MG TAB 1 tablet by mouth daily FLUCONAZOLE 93879930217 No Longer Active Vishal Hui MD Active TIZANIDINE HCL 4 MG TABS 1 po q6hr PRN Muscle Spasm/Back Pain TIZANIDINE HCL 62868609228 Active Luigi Martínez APRN Active CLINDAMYCIN HCL 150 MG CAPS 1 four times a day CLINDAMYCIN HCL 19561634087 No Longer Active Neeraj Collins MD Active KEFLEX 500 MG ORAL CAPS 1 cap QID by mouth CEPHALEXIN 04786939265 No Longer Active Neeraj Collins MD Active DIFLUCAN 150 MG TABS 1 pill every other day x 2 doses FLUCONAZOLE 36081454148 No Longer Active Sahara Rodriguez MD PhD Active MELATONIN 3 MG CAPS 2 po q hs MELATONIN 44497117983 No Longer Active Sahara Rodriguez MD PhD Active MULTIVITAMINS CAPS Take one by mouth daily MULTIPLE VITAMIN 99287111167 No Longer Active Sahara Rodriguez MD PhD Active BACTRIM DS 800-160 MG TAB 1 tab by mouth twice daily TRIMETHOPRIM-SULFAMETHOXAZOLE 80996597983 No Longer Active Sahara Rodriguez MD PhD Active [facility] PROBIOTIC ORAL CHEW 2 daily po PROBIOTIC PRODUCT 12231689853 No Longer Active Sahara Rodriguez MD PhD Active BACTRIM DS 800-160 MG TABS 1 po BID x 7 days SULFAMETHOXAZOLE-TRIMETHOPRIM 75972585965 No Longer Active Vishal Hui MD Active CHANTIX STARTING MONTH EARNEST 0.5 MG X 11 & 1 MG X 42 TABS 0.5mg daily for 3 days , then 0.5mg BID for 4 days, then 1mg BID VARENICLINE TARTRATE 50321638575 No Longer Active TAMARA Gray Active VERAPAMIL HCL CR 120 MG TAB CR 1 po bid VERAPAMIL HCL 50380984391 No Longer Active Vishal Hui MD Active METOPROLOL SUCCINATE 50 MG TB24 1 tablet by mouth daily METOPROLOL SUCCINATE 63258798219 No Longer Active Vishal Hui MD Active SAPHRIS 10 MG SUBL 1 tab po bid ASENAPINE MALEATE 74892120484 No Longer Active Vishal Hui MD Active LISINOPRIL 20 MG TABS 1 tab po qd LISINOPRIL 81797778986 No Longer Active Vishal Hui MD Active BENADRYL 25 MG CAP 2 po tid prn anxiety DIPHENHYDRAMINE HCL 70519845925 Active Vishal Hui MD Active LATUDA 20 MG TABS Take one by mouth daily LURASIDONE HCL 08758394205 No Longer Active Vishal Hui MD Active TRAZODONE HCL 50 MG TABS 1/2 tab po qd prn for anxiety TRAZODONE HCL 31880165029 No Longer Active Vishal Hui MD Active OMEPRAZOLE 20 MG TBEC 1 po q a.m. 30min prior to first food intake OMEPRAZOLE 92295049091 Active Vishal Hui MD Active RANITIDINE HCL 150 MG CAPS 1 twice a day RANITIDINE HCL 90379972669 Active Vishal Hui MD Active LINZESS 290 MCG CAPS Take one by mouth daily LINACLOTIDE 45032403531 No Longer Active Vishal Hui MD Active SAPHRIS 5 MG SUBL 1 tab po qd ASENAPINE MALEATE 74445439235 No Longer Active Vishal Hui MD Active ZALEPLON 10 MG CAPS 1 cap po every other night ZALEPLON 66278911273 No Longer Active Vishal Hui MD Active LYRICA 50 MG CAPS 1 tab po TID PREGABALIN 55937980327 No Longer Active Vishal Hui MD Active LORATADINE 10 MG TABS 1 tab po qd LORATADINE 10068959447 No Longer Active Vishal Hui MD Active VERAPAMIL HCL ER 180 MG CR-TABS 1 tab po bid VERAPAMIL HCL 08911298505 No Longer Active Vishal Hui MD Active MIRALAX POWD 1 capfull once daily POLYETHYLENE GLYCOL 3350 35772456910 No Longer Active Vishal Hui MD Active PREDNISONE 20 MG TABS 1 tab po qd PREDNISONE 26012450213 No Longer Active Renzo Thornton DO Active LEVOFLOXACIN 500 MG TABS 1 tab po qd LEVOFLOXACIN 29506528446 No Longer Active Renzo Thornton DO Active BUSPIRONE HCL 15 MG TABS 1 tab po TID BUSPIRONE HCL 71303207176 No Longer Active Renzo Thornton DO Active BENZTROPINE MESYLATE 1 MG TABS 1 tab po qd BENZTROPINE MESYLATE 47080592206 No Longer Active Renzo Thornton DO Active ATENOLOL 25 MG TABS 1 tab po qd ATENOLOL 96995078662 No Longer Active Renzo Thornton DO Active ESCITALOPRAM OXALATE 20 MG TABS 1 tab po qd ESCITALOPRAM OXALATE 91615343217 No Longer Active Renzo Thornton DO Active ADVAIR DISKUS 250-50 MCG/DOSE AEPB 1 puff BID FLUTICASONE-SALMETEROL 62249240880 No Longer Active Renzo Thornton DO Active PREDNISONE 20 MG TAB 2 tabs daily for 3 days, 1 tab daily for 3 days, 1/2 tab daily for 2 days PREDNISONE 91813416944 No Longer Active Vishal Hui MD Active CEFDINIR 300 MG CAPS by mouth twice a day CEFDINIR 82170099151 No Longer Active Vishal Hui MD Active LANSOPRAZOLE 30 MG CPDR 1 cap po qd LANSOPRAZOLE 80775309639 No Longer Active Vishal Hui MD Active BACLOFEN 20 MG TABS 1 tab po tid BACLOFEN 23054423242 No Longer Active Vishal Hui MD Active ADVAIR DISKUS 250-50 MCG/DOSE AEPB 1 puff BID ADVAIR DISKUS 250-50 MCG/DOSE AEPB FLUTICASONE-SALMETEROL Inactive ESCITALOPRAM OXALATE 20 MG TABS 1 tab po qd ESCITALOPRAM OXALATE 20 MG TABS 253544 ESCITALOPRAM OXALATE Inactive ATENOLOL 25 MG TABS 1 tab po qd ATENOLOL 25 MG TABS 748278 ATENOLOL Inactive BENZTROPINE MESYLATE 1 MG TABS 1 tab po qd BENZTROPINE MESYLATE 1 MG TABS 468942 BENZTROPINE MESYLATE Inactive BUSPIRONE HCL 15 MG TABS 1 tab po TID BUSPIRONE HCL 15 MG TABS 104876 BUSPIRONE HCL Inactive LEVOFLOXACIN 500 MG TABS 1 tab po qd LEVOFLOXACIN 500 MG TABS 705233 LEVOFLOXACIN Inactive PREDNISONE 20 MG TABS 1 tab po qd PREDNISONE 20 MG TABS 665903 PREDNISONE Inactive MIRALAX POWD 1 capfull once daily MIRALAX POWD 823958 POLYETHYLENE GLYCOL 3350 Inactive VERAPAMIL HCL ER 180 MG CR-TABS 1 tab po bid VERAPAMIL HCL ER 180 MG CR-TABS VERAPAMIL HCL Inactive LORATADINE 10 MG TABS 1 tab po qd LORATADINE 10 MG TABS 113154 LORATADINE Inactive LYRICA 50 MG CAPS 1 tab po TID LYRICA 50 MG CAPS PREGABALIN Inactive ZALEPLON 10 MG CAPS 1 cap po every other night ZALEPLON 10 MG CAPS 186440 ZALEPLON Inactive SAPHRIS 5 MG SUBL 1 tab po qd SAPHRIS 5 MG SUBL ASENAPINE MALEATE Inactive TRAZODONE HCL 50 MG TABS 1/2 tab po qd prn for anxiety TRAZODONE HCL 50 MG TABS 964058 TRAZODONE HCL Inactive LATUDA 20 MG TABS Take one by mouth daily LATUDA 20 MG TABS LURASIDONE HCL Inactive LISINOPRIL 20 MG TABS 1 tab po qd LISINOPRIL 20 MG TABS 517315 LISINOPRIL Inactive SAPHRIS 10 MG SUBL 1 [...] twice daily BACTRIM DS 800-160 MG TAB 197888 TRIMETHOPRIM-SULFAMETHOXAZOLE Inactive MULTIVITAMINS CAPS Take one by mouth daily MULTIVITAMINS CAPS MULTIPLE VITAMIN Inactive MELATONIN 3 MG CAPS 2 po q hs MELATONIN 3 MG CAPS 607230 MELATONIN Inactive KEFLEX 500 MG ORAL CAPS 1 cap QID by mouth KEFLEX 500 MG ORAL CAPS 431598 CEPHALEXIN Inactive CLINDAMYCIN HCL 150 MG CAPS 1 four times a day CLINDAMYCIN HCL 150 MG CAPS 484929 CLINDAMYCIN HCL Inactive DIFLUCAN 150 MG TAB 1 tablet by mouth daily DIFLUCAN 150 MG TAB 251919 FLUCONAZOLE Inactive PROZAC 20 MG CAP Take one by mouth daily PROZAC 20 MG CAP 249202 FLUOXETINE HCL Inactive IBUPROFEN 600 MG TAB 1 po TID PRN IBUPROFEN 600 MG TAB 212686 IBUPROFEN Inactive VYVANSE 40 MG CAPS 1 daily, VYVANSE 40 MG CAPS LISDEXAMFETAMINE DIMESYLATE Inactive TRAZODONE HCL 100 MG TAB take 1 at bedtime TRAZODONE HCL 100 MG TAB 285825 TRAZODONE HCL Inactive AMITRIPTYLINE HCL 100 MG TAB one at hs AMITRIPTYLINE HCL 100 MG TAB 941563 AMITRIPTYLINE HCL Inactive AMLODIPINE BESYLATE 5 MG TABS 1 tablet by mouth daily AMLODIPINE BESYLATE 5 MG TABS 735894 AMLODIPINE BESYLATE Inactive LATUDA 80 MG TABS Take one by mouth daily LATUDA 80 MG TABS LURASIDONE HCL Inactive SAPHRIS 5 MG SUBL 1 po bid SAPHRIS 5 MG SUBL ASENAPINE MALEATE Inactive PREDNISONE 20 MG TAB 2 tabs daily for 4 days, 1 tab daily for 4 days, 1/2 tab daily for 4 days PREDNISONE 20 MG TAB 245398 PREDNISONE Inactive AMBIEN 5 MG ORAL TABS 1 tab at bedtime AMBIEN 5 MG ORAL TABS 331363 ZOLPIDEM TARTRATE Inactive PROZAC 20 MG ORAL CAPS 1 tab daily PROZAC 20 MG ORAL CAPS 841504 FLUOXETINE HCL Inactive ABILIFY 15 MG ORAL TABS 1 tab daily ABILIFY 15 MG ORAL TABS 061018 ARIPIPRAZOLE Inactive METOPROLOL TARTRATE 50 MG TAB 1 po bid METOPROLOL TARTRATE 50 MG TAB 657414 METOPROLOL TARTRATE Inactive TRAMADOL HCL 50 MG TABS 1-2 po TID PRN Pain TRAMADOL HCL 50 MG TABS 193705 TRAMADOL HCL Inactive PIROXICAM 20 MG CAPS 1 cap po qd PRN Pain PIROXICAM 20 MG CAPS 984080 PIROXICAM Inactive MINIPRESS 2 MG CAPS 4 cap po at night MINIPRESS 2 MG CAPS 752198 PRAZOSIN HCL Inactive MIRALAX PACK 1 po qd PRN Constipation MIRALAX PACK 005287 POLYETHYLENE GLYCOL 3350 Inactive CEFDINIR 300 MG CAPS by mouth twice a day CEFDINIR 300 MG CAPS 306453 CEFDINIR Inactive PREDNISONE 20 MG TAB 2 tabs daily for 3 days, 1 tab daily for 3 days, 1/2 tab daily for 2 days PREDNISONE 20 MG TAB 006106 PREDNISONE Inactive BACTRIM DS 800-160 MG TABS 1 po BID x 7 days BACTRIM DS 800-160 MG TABS 19820521 SULFAMETHOXAZOLE-TRIMETHOPRIM Inactive DIFLUCAN 150 MG TABS 1 pill every other day x 2 doses DIFLUCAN 150 MG TABS 229580 FLUCONAZOLE Inactive BACTRIM DS 800-160 MG TABS 1 pill by mouth twice daily BACTRIM DS 800-160 MG TABS 19820521 SULFAMETHOXAZOLE-TRIMETHOPRIM Inactive KEFLEX 500 MG CAP 1 po TID x 10 days KEFLEX 500 MG CAP 004332 CEPHALEXIN Inactive Advance Directives Directive Description Start [...] % 11.6-14.8 platelet count 394 10^3/MM^3 10*3/mm3 712-250 7706/01/11 leukocyte count, blood 13.8 10^3/MM^3 10*3/mm3 4.6-10.2 [...] Panel - Chemistry sodium, serum 139 mmol/L 210-325 5847/12/03 carbon dioxide, venous blood 28.5 mmol/L 21.0-32.0 [...] 5.5 % 4.3-6.0 cholesterol, serum 159 mg/dL 475-713 9820/12/03 triglyceride, serum, fasting 118 mg/dL 30-200 HDL [...] Panel - Chemistry sodium, serum 139 mmol/L 871-180 7311/12/22 carbon dioxide, venous blood 26.8 mmol/L 21.0-32.0 potassium, serum 4.2 mmol/L 3.5-5.2 chloride, serum 103 mmol/L 98-107 blood glucose 115 mg/dL 65-110 urea nitrogen, blood 20 mg/dL 7-18 creatinine, serum 0.90 mg/dL 0.55-1.30 alanine aminotransferase (SGPT), serum 38 U/L aspartate aminotransferase (SGOT), serum 19 U/L 15-37 calcium, serum 8.6 mg/dL 8.5-10.1 bilirubin, serum, total 0.30 mg/dL 0.00-1.00 sodium, serum 139 mmol/L 873-494 0647/01/11 carbon dioxide, venous blood 26.6 mmol/L 21.0-32.0 potassium, serum 4.1 mmol/L 3.5-5.2 chloride, serum 100 mmol/L 98-107 blood glucose 86 mg/dL 65-110 urea nitrogen, blood 16 mg/dL 7-18 creatinine, serum 1.00 mg/dL 0.55-1.30 alanine aminotransferase (SGPT), serum 48 U/L aspartate aminotransferase (SGOT), serum 17 U/L 15-37 calcium, serum 9.1 mg/dL 8.5-10.1 bilirubin, serum, total 0.40 mg/dL 0.00-1.00 sodium, serum 142 mmol/L 379-730 4796/06/08 carbon dioxide, venous blood 27.6 mmol/L 21.0-32.0 [...] Rate - Chemistry sodium, serum 139 mmol/L 539-648 7691/12/11 carbon dioxide, venous blood 25.4 mmol/L 21.0-32.0 [...] 5.0-8.5 Encounters Code Encounter Date Provider Facility CPT-58404 Level 3 Est. Patient 15:22:01 CDT Ahmet Carbajal MD [facility]-71426 Level 4 Est. Patient 09:00:51 FRIT BURNER Vishal Hui MD [facility]-60448 Level 3 Est. Patient 11:37:33 FRIT BURNER Vishal Hui MD [facility] CPT-64422 Level 3 Est. Patient 08:41:09 FRIT BURNER Vishal Hui MD [facility]-23120 Level 4 Est. Patient 10:19:35 FRIT BURNER Vishal Hui MD [facility] CPT-64930 Level 3 Est. Patient 13:35:45 CDT Vishal Hui MD [facility] CPT-25126 Level 4 Est. Patient 10:08:37 CDT Vishal Hui MD [facility] CPT-17199 Level 3 Est. Patient 11:22:10 CDT Vishal Hui MD [facility] CPT-44710 Level 3 Est. Patient 11:03:32 CDT Sahara Rodriguez MD PhD [facility]-72491 Level 3 Est. Patient 09:41:35 CDT Vishal Hui MD [facility]-45532 Level 3 Est. Patient 12:00:41 CDT Neeraj Collins MD [facility]-45322 Level 3 Est. Patient 09:16:24 CDT Vishal Hui MD [facility]-27038 Level 4 Est. Patient 13:59:09 CDT Neeraj Collins MD [facility]-15478 Level 3 Est. Patient 15:19:43 CDT Renzo Thornton [facility] CPT-22074 Level 3 Est. Patient 18:10:26 CDT Sahara Rodriguez MD PhD [facility] CPT-80386 Level 3 Est. Patient 14:49:50 CDT Vishal Hui MD [facility] CPT-88373 Level 4 Est. Patient 18:41:46 CDT Neeraj Collins MD [facility] CPT-81530 Level 4 Est. Patient 09:18:38 FRIT BURNER Vishal Hui MD [facility] CPT-94962 Level 3 Est. Patient 14:43:55 FRIT BURNER Vishal Hui MD [facility] CPT-97070 Level 3 Est. Patient 15:26:33 FRIT BURNER Sahara Rodriguez MD PhD [facility] CPT-42392 Level 3 Est. Patient 10:32:14 FRIT BURNER Vishal Hui MD [facility] CPT-94202 Level 3 Est. Patient 15:12:52 FRIT BURNER Vishal Hui MD [facility] CPT-45848 Level 4 Est. Patient 09:19:27 CDT Vishal Hui MD [facility] CPT-68216 Level 3 Est. Patient 15:53:00 CDT Renzo Thornton [facility] CPT-50239 Level 3 Est. Patient 15:50:30 CDT Renzo Thornton [facility] CPT-69252 Level 3 Est. Patient 16:55:24 CDT Vishal Hui MD [facility] Procedures Code Procedure Name Date Entry Date Standard Description CPT-J3420 Vitamin B12 1000mcg (Cyanocobalamin) 08:10:26 FRIT BURNER 04/12 CPT-87488 Abx/Therapy Injection 08:10:26 FRIT BURNER CPT-G0438 Initial Annual Wellness Exam 19:01:01 FRIT BURNER CPT-J3420 Vitamin B12 1000mcg (Cyanocobalamin) 16:57:46 CDT 08/14 CPT-54199 Recombivax HB Injection Suspension 5 MCG/0.5ML 08:37:50 FRIT BURNER CPT-02258 Immunization Single Admin 08:37:50 FRIT BURNER CPT-J3420 Vitamin B12 1000mcg (Cyanocobalamin) 08:32:16 FRIT BURNER 03/11 CPT-39140 Abx/Therapy Injection 08:32:16 FRIT BURNER CPT-82532 Chest 2V Frontal and Lat 11:46:38 FRIT BURNER CPT-93667 Venipuncture Draw Fee 09:12:45 FRIT BURNER CPT-J3420 Vitamin B12 1000mcg (Cyanocobalamin) 08:50:15 FRIT BURNER 02/08 CPT-27862 Abx/Therapy Injection 08:50:15 FRIT BURNER CPT-Cryo Cryotherapy 10:19:35 FRIT BURNER CPT-000 Give Appropriate Flu Vaccine 09:22:16 CDT CPT-J3420 Vitamin B12 1000mcg (Cyanocobalamin) 19:08:57 CDT 01/11 CPT-44058 Abx/Therapy Injection 19:08:57 CDT CPT-J3420 Vitamin B12 1000mcg (Cyanocobalamin) 08:19:08 CDT 12/11 CPT-70560 Abx/Therapy Injection 08:19:08 CDT CPT-J3420 Vitamin B12 1000mcg (Cyanocobalamin) 14:48:00 CDT 11/09 CPT-26529 Abx/Therapy Injection 14:47:59 CDT CPT-J3420 Vitamin B12 1000mcg (Cyanocobalamin) 08:34:04 CDT 10/09 CPT-85149 Abx/Therapy Injection 08:34:04 CDT CPT-J3420 Vitamin B12 1000mcg (Cyanocobalamin) 09:18:52 CDT 09/11 CPT-61507 Abx/Therapy Injection 09:18:52 CDT CPT-J3420 Vitamin B12 1000mcg (Cyanocobalamin) 08:35:44 CDT 09/04 CPT-86953 Abx/Therapy Injection 08:35:44 CDT CPT-33387 Immunization Single Admin 11:07:16 CDT CPT-84644 Hepatitis B adult IM 11:07:16 CDT CPT-J3420 Vitamin B12 1000mcg (Cyanocobalamin) 11:00:49 CDT 08/28 CPT-J1040 Depo Medrol 80 mg (Methyl Prednisolone Acetate) 11:00: 49 CDT CPT-91597 Abx/Therapy Injection 11:00:49 CDT CPT-J1040 Depo Medrol 80 mg (Methyl Prednisolone Acetate) 09:16: 23 CDT CPT-J3420 Vitamin B12 1000mcg (Cyanocobalamin) 08:27:05 CDT 08/20 CPT-84766 Abx/Therapy Injection 08:27:05 CDT CPT-18965 Recombivax HB Injection Suspension 5 MCG/0.5ML 10:00:41 CDT CPT-66107 Administration single or combination vaccine inc oral 10 :00:41 CDT CPT-68220 Sono transvag pelvis non OB uterus ovaries cervix 16:36: 57 CDT CPT-41627 LS spine comp w obliq 09:50:55 FRIT BURNER CPT-71204 Abd compl w upright 09:50:55 FRIT BURNER CPT-J1100 Decadron 4mg (Dexamethasone) 15:51:24 FRIT BURNER CPT-J1030 Depo Medrol 40 mg (Methyl Prednisolone Acetate) 15:51: 24 FRIT BURNER CPT-46946 Abx/Therapy Injection 15:51:24 FRIT BURNER CPT-J1100 Decadron 4mg (Dexamethasone) 15:26:33 FRIT BURNER CPT-J1030 Depo Medrol 40 mg (Methyl Prednisolone Acetate) 15:26: 33 FRIT BURNER CPT-18666 Sono retroperitoneal complete kidneys and bladder 17:15: 30 CDT CPT-34859 Abd compl w upright 16:09:25 CDT CPT-J1100 Decadron 8mg (Dexamethasone) 17:07:57 CDT CPT-67985 Abx/Therapy Injection 17:07:57 CDT CPT-J1100 Decadron 8mg (Dexamethasone) 16:55:24 CDT CPT-93826 Chest 2V Frontal and Lat 16:32:44 CDT
--- OUTSIDE RECORDS SUMMARY | 2016-11-04 21:10 | XMS REPORT | Clinical Summary ---
Author Author Admin, Dereck Organization [facility] Address Unknown Phone Unavailable Allergies, Adverse Reactions, [...] sites Morbid obesity 278.01 Active Juliet Kimbrough ELEMENTARY INSTRUCTIONAL COACH Morbid obesity 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 Active Juliet Kimbrough ELEMENTARY INSTRUCTIONAL COACH Dependence on other enabling machines and devices [...] 17GMS DAILY IN WATER POLYETHYLENE GLYCOL 3350 86830134398 Active Vishal Hui MD Active METOPROLOL TARTRATE 25 MG ORAL TABS 1/2 tablet twice daily for heart rate and blood pressure METOPROLOL TARTRATE 34274023598 Active Renzo Thornton DO Active VALIUM 5 MG TAB Take 1-2 tablets daily DIAZEPAM 68063012018 Active Ahmet Carbajal MD Active VIIBRYD 10 MG ORAL TABS Take 1 tablet once a day VILAZODONE HCL 94905781270 Active Ahmet Carbajal MD Active DICLOFENAC POTASSIUM TABS Take 1 tablet twice a day (pt. is not sure of the dose.) DICLOFENAC POTASSIUM TABS 64236454614 Active Ahmet Carbajal MD Active MIRALAX PACK 1 po qd PRN Constipation POLYETHYLENE GLYCOL 3350 55935833477 No Longer Active Ahmet Carbajal MD Active MINIPRESS 2 MG CAPS 4 cap po at night PRAZOSIN HCL 28719839760 No Longer Active Ahmet Carbajal MD Active PIROXICAM 20 MG CAPS 1 cap po qd PRN Pain PIROXICAM 93076404265 No Longer Active Ahmet Carbajal MD Active TRAMADOL HCL 50 MG TABS 1-2 po TID PRN Pain TRAMADOL HCL 11967763487 No Longer Active Ahmet Carbajal MD Active METOPROLOL TARTRATE 50 MG TAB 1 po bid METOPROLOL TARTRATE 61750266839 No Longer Active Ahmet Carbajal MD Active ABILIFY 15 MG ORAL TABS 1 tab daily ARIPIPRAZOLE 61022534966 No Longer Active Ahmet Carbajal MD Active PROZAC 20 MG ORAL CAPS 1 tab daily FLUOXETINE HCL 78618083981 No Longer Active Ahmet Carbajal MD Active AMBIEN 5 MG ORAL TABS 1 tab at bedtime ZOLPIDEM TARTRATE 84927203765 No Longer Active Ahmet Carbajal MD Active PREDNISONE 20 MG TAB 2 tabs daily for 4 days, 1 tab daily for 4 days, 1/2 tab daily for 4 days PREDNISONE 45761407223 No Longer Active Ahmet Carbajal MD Active KEFLEX 500 MG CAP 1 po TID x 10 days CEPHALEXIN 21735505337 No Longer Active Vishal Hui MD Active ABILIFY MAINTENA 400 MG IM SUSR Injection once per month ARIPIPRAZOLE 44763087678 Active Juliet ELEMENTARY INSTRUCTIONAL COACH Active IMITREX 50 MG ORAL TABS 1/2 tab every 6 hours prn SUMATRIPTAN SUCCINATE 75845706422 Active Jillina Frazell ELEMENTARY INSTRUCTIONAL COACH Active TOPAMAX 50 MG ORAL TABS 1 tab twice daily TOPIRAMATE 64845027864 Active Vishal Hui MD Active SAPHRIS 5 MG SUBL 1 po bid ASENAPINE MALEATE 76315596213 No Longer Active Jillina Mauricio NORIEGA Active LATUDA 80 MG TABS Take one by mouth daily LURASIDONE HCL 63368974682 No Longer Active Pacollina Mauricio NORIEGA Active AMLODIPINE BESYLATE 5 MG TABS 1 tablet by mouth daily AMLODIPINE BESYLATE 30759291849 No Longer Active Pacollina Mauricio NORIEGA Active AMITRIPTYLINE HCL 100 MG TAB one at hs AMITRIPTYLINE HCL 37594224531 No Longer Active Vishal Hui MD Active TRAZODONE HCL 100 MG TAB take 1 at bedtime TRAZODONE HCL 05835976202 No Longer Active Vishal Hui MD Active VYVANSE 40 MG CAPS 1 daily, LISDEXAMFETAMINE DIMESYLATE 64825151784 No Longer Active Vishal Hui MD Active IBUPROFEN 600 MG TAB 1 po TID PRN IBUPROFEN 91247832791 No Longer Active Vishal Hui MD Active PROZAC 20 MG CAP Take one by mouth daily FLUOXETINE HCL 48233551832 No Longer Active Vishal Hiu MD Active ZOFRAN 4 MG TABS 1 po q6hr PRN Nausea ONDANSETRON HCL Active Vishal Hui MD Active BACTRIM DS 800-160 MG TABS 1 pill by mouth twice daily SULFAMETHOXAZOLE-TRIMETHOPRIM 61224127857 No Longer Active Sahara Rodriguez MD PhD Active DIFLUCAN 150 MG TAB 1 tablet by mouth daily FLUCONAZOLE 91067043652 No Longer Active Vishal Hui MD Active TIZANIDINE HCL 4 MG TABS 1 po q6hr PRN Muscle Spasm/Back Pain TIZANIDINE HCL 52002205953 Active Vishal Hui MD Active CLINDAMYCIN HCL 150 MG CAPS 1 four times a day CLINDAMYCIN HCL 46865330542 No Longer Active Neeraj Collins MD Active KEFLEX 500 MG ORAL CAPS 1 cap QID by mouth CEPHALEXIN 90845281893 No Longer Active Neeraj Collins MD Active DIFLUCAN 150 MG TABS 1 pill every other day x 2 doses FLUCONAZOLE 58697018982 No Longer Active Shaara Rodriguez MD PhD Active MELATONIN 3 MG CAPS 2 po q hs MELATONIN 39486272430 No Longer Active Sahara Rodriguez MD PhD Active MULTIVITAMINS CAPS Take one by mouth daily MULTIPLE VITAMIN 31546456490 No Longer Active Sahara Rodriguez MD PhD Active BACTRIM DS 800-160 MG TAB 1 tab by mouth twice daily TRIMETHOPRIM-SULFAMETHOXAZOLE 68637658254 No Longer Active Sahara Rodriguez MD PhD Active [facility] PROBIOTIC ORAL CHEW 2 daily po PROBIOTIC PRODUCT 33470392221 No Longer Active Sahara Rodriguez MD PhD Active BACTRIM DS 800-160 MG TABS 1 po BID x 7 days SULFAMETHOXAZOLE-TRIMETHOPRIM 72492910084 No Longer Active Vishal Hui MD Active CHANTIX STARTING MONTH EARNEST 0.5 MG X 11 & 1 MG X 42 TABS 0.5mg daily for 3 days , then 0.5mg BID for 4 days, then 1mg BID VARENICLINE TARTRATE 33762884802 No Longer Active TAMARA Gray Active VERAPAMIL HCL CR 120 MG TAB CR 1 po bid VERAPAMIL HCL 21703602069 No Longer Active Vishal Hui MD Active METOPROLOL SUCCINATE 50 MG TB24 1 tablet by mouth daily METOPROLOL SUCCINATE 68539304387 No Longer Active Vishal Hui MD Active SAPHRIS 10 MG SUBL 1 tab po bid ASENAPINE MALEATE 23528640764 No Longer Active Vishal Hui MD Active LISINOPRIL 20 MG TABS 1 tab po qd LISINOPRIL 62008481229 No Longer Active Vishal Hui MD Active BENADRYL 25 MG CAP 2 po tid prn anxiety DIPHENHYDRAMINE HCL 30958267053 Active Vishal Hui MD Active LATUDA 20 MG TABS Take one by mouth daily LURASIDONE HCL 63690712643 No Longer Active Vishal Hui MD Active TRAZODONE HCL 50 MG TABS 1/2 tab po qd prn for anxiety TRAZODONE HCL 42879585603 No Longer Active Vishal Hui MD Active OMEPRAZOLE 20 MG TBEC 1 po q a.m. 30min prior to first food intake OMEPRAZOLE 04826639263 Active Vishal Hui MD Active RANITIDINE HCL 150 MG CAPS 1 twice a day RANITIDINE HCL 28919082380 Active Vishal Hui MD Active LINZESS 290 MCG CAPS Take one by mouth daily LINACLOTIDE 48277868974 No Longer Active Vishal Hui MD Active SAPHRIS 5 MG SUBL 1 tab po qd ASENAPINE MALEATE 11374546727 No Longer Active Vishal Hui MD Active ZALEPLON 10 MG CAPS 1 cap po every other night ZALEPLON 59596984194 No Longer Active Vishal Hui MD Active LYRICA 50 MG CAPS 1 tab po TID PREGABALIN 42050197760 No Longer Active Vishal Hui MD Active LORATADINE 10 MG TABS 1 tab po qd LORATADINE 92418535893 No Longer Active Vishal Hui MD Active VERAPAMIL HCL ER 180 MG CR-TABS 1 tab po bid VERAPAMIL HCL 76201779284 No Longer Active Vishal Hui MD Active MIRALAX POWD 1 capfull once daily POLYETHYLENE GLYCOL 3350 17896984154 No Longer Active Vishal Hui MD Active PREDNISONE 20 MG TABS 1 tab po qd PREDNISONE 48435925422 No Longer Active Renzo Thornton DO Active LEVOFLOXACIN 500 MG TABS 1 tab po qd LEVOFLOXACIN 05306657468 No Longer Active Renzo Thornton DO Active BUSPIRONE HCL 15 MG TABS 1 tab po TID BUSPIRONE HCL 96836401174 No Longer Active Renzo Thornton DO Active BENZTROPINE MESYLATE 1 MG TABS 1 tab po qd BENZTROPINE MESYLATE 68540732063 No Longer Active Renzo Thornton DO Active ATENOLOL 25 MG TABS 1 tab po qd ATENOLOL 61579587149 No Longer Active Renzo Thornton DO Active ESCITALOPRAM OXALATE 20 MG TABS 1 tab po qd ESCITALOPRAM OXALATE 07628182399 No Longer Active Renzo Thornton DO Active ADVAIR DISKUS 250-50 MCG/DOSE AEPB 1 puff BID FLUTICASONE-SALMETEROL 62246454116 No Longer Active Renzo Thornton DO Active PREDNISONE 20 MG TAB 2 tabs daily for 3 days, 1 tab daily for 3 days, 1/2 tab daily for 2 days PREDNISONE 16399986560 No Longer Active Vishal Hui MD Active CEFDINIR 300 MG CAPS by mouth twice a day CEFDINIR 45157148417 No Longer Active Vishal Hui MD Active LANSOPRAZOLE 30 MG CPDR 1 cap po qd LANSOPRAZOLE 95283924629 No Longer Active Vishal Hui MD Active BACLOFEN 20 MG TABS 1 tab po tid BACLOFEN 64291287120 No Longer Active Vishal Hui MD Active ADVAIR DISKUS 250-50 MCG/DOSE AEPB 1 puff BID ADVAIR DISKUS 250-50 MCG/DOSE AEPB FLUTICASONE-SALMETEROL Inactive ESCITALOPRAM OXALATE 20 MG TABS 1 tab po qd ESCITALOPRAM OXALATE 20 MG TABS 104838 ESCITALOPRAM OXALATE Inactive ATENOLOL 25 MG TABS 1 tab po qd ATENOLOL 25 MG TABS 547611 ATENOLOL Inactive BENZTROPINE MESYLATE 1 MG TABS 1 tab po qd BENZTROPINE MESYLATE 1 MG TABS 674517 BENZTROPINE MESYLATE Inactive BUSPIRONE HCL 15 MG TABS 1 tab po TID BUSPIRONE HCL 15 MG TABS 594414 BUSPIRONE HCL Inactive LEVOFLOXACIN 500 MG TABS 1 tab po qd LEVOFLOXACIN 500 MG TABS 153298 LEVOFLOXACIN Inactive PREDNISONE 20 MG TABS 1 tab po qd PREDNISONE 20 MG TABS 675404 PREDNISONE Inactive MIRALAX POWD 1 capfull once daily MIRALAX POWD 879881 POLYETHYLENE GLYCOL 3350 Inactive VERAPAMIL HCL ER 180 MG CR-TABS 1 tab po bid VERAPAMIL HCL ER 180 MG CR-TABS VERAPAMIL HCL Inactive LORATADINE 10 MG TABS 1 tab po qd LORATADINE 10 MG TABS 886697 LORATADINE Inactive LYRICA 50 MG CAPS 1 tab po TID LYRICA 50 MG CAPS PREGABALIN Inactive ZALEPLON 10 MG CAPS 1 cap po every other night ZALEPLON 10 MG CAPS 057847 ZALEPLON Inactive SAPHRIS 5 MG SUBL 1 tab po qd SAPHRIS 5 MG SUBL ASENAPINE MALEATE Inactive TRAZODONE HCL 50 MG TABS 1/2 tab po qd prn for anxiety TRAZODONE HCL 50 MG TABS 702414 TRAZODONE HCL Inactive LATUDA 20 MG TABS Take one by mouth daily LATUDA 20 MG TABS LURASIDONE HCL Inactive LISINOPRIL 20 MG TABS 1 tab po qd LISINOPRIL 20 MG TABS 113251 LISINOPRIL Inactive SAPHRIS 10 MG SUBL 1 [...] twice daily BACTRIM DS 800-160 MG TAB 783896 TRIMETHOPRIM-SULFAMETHOXAZOLE Inactive MULTIVITAMINS CAPS Take one by mouth daily MULTIVITAMINS CAPS MULTIPLE VITAMIN Inactive MELATONIN 3 MG CAPS 2 po q hs MELATONIN 3 MG CAPS 413304 MELATONIN Inactive KEFLEX 500 MG ORAL CAPS 1 cap QID by mouth KEFLEX 500 MG ORAL CAPS 999227 CEPHALEXIN Inactive CLINDAMYCIN HCL 150 MG CAPS 1 four times a day CLINDAMYCIN HCL 150 MG CAPS 19740326 CLINDAMYCIN HCL Inactive DIFLUCAN 150 MG TAB 1 tablet by mouth daily DIFLUCAN 150 MG TAB 520429 FLUCONAZOLE Inactive PROZAC 20 MG CAP Take one by mouth daily PROZAC 20 MG CAP 605032 FLUOXETINE HCL Inactive IBUPROFEN 600 MG TAB 1 po TID PRN IBUPROFEN 600 MG TAB 055948 IBUPROFEN Inactive VYVANSE 40 MG CAPS 1 daily, VYVANSE 40 MG CAPS LISDEXAMFETAMINE DIMESYLATE Inactive TRAZODONE HCL 100 MG TAB take 1 at bedtime TRAZODONE HCL 100 MG TAB 890589 TRAZODONE HCL Inactive AMITRIPTYLINE HCL 100 MG TAB one at hs AMITRIPTYLINE HCL 100 MG TAB 705531 AMITRIPTYLINE HCL Inactive AMLODIPINE BESYLATE 5 MG TABS 1 tablet by mouth daily AMLODIPINE BESYLATE 5 MG TABS 118458 AMLODIPINE BESYLATE Inactive LATUDA 80 MG TABS Take one by mouth daily LATUDA 80 MG TABS LURASIDONE HCL Inactive SAPHRIS 5 MG SUBL 1 po bid SAPHRIS 5 MG SUBL ASENAPINE MALEATE Inactive PREDNISONE 20 MG TAB 2 tabs daily for 4 days, 1 tab daily for 4 days, 1/2 tab daily for 4 days PREDNISONE 20 MG TAB 744726 PREDNISONE Inactive AMBIEN 5 MG ORAL TABS 1 tab at bedtime AMBIEN 5 MG ORAL TABS 960739 ZOLPIDEM TARTRATE Inactive PROZAC 20 MG ORAL CAPS 1 tab daily PROZAC 20 MG ORAL CAPS 112007 FLUOXETINE HCL Inactive ABILIFY 15 MG ORAL TABS 1 tab daily ABILIFY 15 MG ORAL TABS 248628 ARIPIPRAZOLE Inactive METOPROLOL TARTRATE 50 MG TAB 1 po bid METOPROLOL TARTRATE 50 MG TAB 477844 METOPROLOL TARTRATE Inactive TRAMADOL HCL 50 MG TABS 1-2 po TID PRN Pain TRAMADOL HCL 50 MG TABS 135869 TRAMADOL HCL Inactive PIROXICAM 20 MG CAPS 1 cap po qd PRN Pain PIROXICAM 20 MG CAPS 812147 PIROXICAM Inactive MINIPRESS 2 MG CAPS 4 cap po at night MINIPRESS 2 MG CAPS 249290 PRAZOSIN HCL Inactive MIRALAX PACK 1 po qd PRN Constipation MIRALAX PACK 668082 POLYETHYLENE GLYCOL 3350 Inactive CEFDINIR 300 MG CAPS by mouth twice a day CEFDINIR 300 MG CAPS 267808 CEFDINIR Inactive PREDNISONE 20 MG TAB 2 tabs daily for 3 days, 1 tab daily for 3 days, 1/2 tab daily for 2 days PREDNISONE 20 MG TAB 629107 PREDNISONE Inactive BACTRIM DS 800-160 MG TABS 1 po BID x 7 days BACTRIM DS 800-160 MG TABS 279068 SULFAMETHOXAZOLE-TRIMETHOPRIM Inactive DIFLUCAN 150 MG TABS 1 pill every other day x 2 doses DIFLUCAN 150 MG TABS 071798 FLUCONAZOLE Inactive BACTRIM DS 800-160 MG TABS 1 pill by mouth twice daily BACTRIM DS 800-160 MG TABS 311803 SULFAMETHOXAZOLE-TRIMETHOPRIM Inactive KEFLEX 500 MG CAP 1 po TID x 10 days KEFLEX 500 MG CAP 981257 CEPHALEXIN Inactive Advance Directives Directive Description Start [...] % 11.6-14.8 platelet count 394 10^3/MM^3 10*3/mm3 306-769 6899/01/11 leukocyte count, blood 13.8 10^3/MM^3 10*3/mm3 4.6-10.2 [...] Panel - Chemistry sodium, serum 139 mmol/L 382-021 4036/12/03 carbon dioxide, venous blood 28.5 mmol/L 21.0-32.0 [...] 5.5 % 4.3-6.0 cholesterol, serum 159 mg/dL 828-759 6795/12/03 triglyceride, serum, fasting 118 mg/dL 30-200 HDL [...] Panel - Chemistry sodium, serum 139 mmol/L 629-937 0601/12/22 carbon dioxide, venous blood 26.8 mmol/L 21.0-32.0 potassium, serum 4.2 mmol/L 3.5-5.2 chloride, serum 103 mmol/L 98-107 blood glucose 115 mg/dL 65-110 urea nitrogen, blood 20 mg/dL 7-18 creatinine, serum 0.90 mg/dL 0.55-1.30 alanine aminotransferase (SGPT), serum 38 U/L 12-78 aspartate aminotransferase (SGOT), serum 19 U/L 15-37 calcium, serum 8.6 mg/dL 8.5-10.1 bilirubin, serum, total 0.30 mg/dL 0.00-1.00 sodium, serum 139 mmol/L 809-641 0609/01/11 carbon dioxide, venous blood 26.6 mmol/L 21.0-32.0 potassium, serum 4.1 mmol/L 3.5-5.2 chloride, serum 100 mmol/L 98-107 blood glucose 86 mg/dL 65-110 urea nitrogen, blood 16 mg/dL 7-18 creatinine, serum 1.00 mg/dL 0.55-1.30 alanine aminotransferase (SGPT), serum 48 U/L -78 aspartate aminotransferase (SGOT), serum 17 U/L 15-37 calcium, serum 9.1 mg/dL 8.5-10.1 bilirubin, serum, total 0.40 mg/dL 0.00-1.00 sodium, serum 142 mmol/L 999-053 7427/06/08 carbon dioxide, venous blood 27.6 mmol/L 21.0-32.0 [...] Rate - Chemistry sodium, serum 139 mmol/L 531-404 6427/12/11 carbon dioxide, venous blood 25.4 mmol/L 21.0-32.0 [...] 5.0-8.5 Encounters Code Encounter Date Provider Facility CPT-69839 Level 3 New Patient 16:53:37 CDT Albert Caldera MD [facility] CPT-51539 Level 3 Est. Patient 11:25:49 CDT Renzo Thornton DO [facility] CPT-86120 Level 3 Est. Patient 15:22:01 CDT Ahmet Carbajal MD [facility] CPT-25234 Level 4 Est. Patient 09:00:51 ASSISTANT MEDIA PLANNER Vishal Hui MD [facility] CPT-16851 Level 3 Est. Patient 11:37:33 ASSISTANT MEDIA PLANNER Vishal Hui MD [facility] CPT-11744 Level 3 Est. Patient 08:41:09 ASSISTANT MEDIA PLANNER Vishal Hui MD [facility] CPT-98017 Level 4 Est. Patient 10:19:35 ASSISTANT MEDIA PLANNER Vishal Hui MD [facility] CPT-25463 Level 3 Est. Patient 13:35:45 CDT Vishal Hui MD [facility] CPT-93063 Level 4 Est. Patient 10:08:37 CDT Vishal Hui MD [facility] CPT-76472 Level 3 Est. Patient 11:22:10 CDT Vishal Hui MD [facility] CPT-22538 Level 3 Est. Patient 11:03:32 CDT Sahara Rodriguez MD [facility]-88978 Level 3 Est. Patient 09:41:35 CDT Vishal Hui MD [facility] CPT-05155 Level 3 Est. Patient 12:00:41 CDT Neeraj Collins MD [facility] CPT-93523 Level 3 Est. Patient 09:16:24 CDT Vishal Hui MD [facility] CPT-50174 Level 4 Est. Patient 13:59:09 CDT Neeraj Collins MD [facility] [place]-01393 Level 3 Est. Patient 15:19:43 CDT Renzo Thornton DO [facility] CPT-66385 Level 3 Est. Patient 18:10:26 CDT Sahara Rodriguez MD [facility]-50998 Level 3 Est. Patient 14:49:50 CDT Vishal Hui MD [facility] CPT-34060 Level 4 Est. Patient 18:41:46 CDT Neeraj Collins MD [facility] [place]-57528 Level 4 Est. Patient 09:18:38 ASSISTANT MEDIA PLANNER Vishal Hui MD [facility] CPT-84195 Level 3 Est. Patient 14:43:55 ASSISTANT MEDIA PLANNER Vishal Hui MD [facility] CPT-00630 Level 3 Est. Patient 15:26:33 ASSISTANT MEDIA PLANNER Sahara Rodriguez MD PhD [facility] CPT-69338 Level 3 Est. Patient 10:32:14 ASSISTANT MEDIA PLANNER Vishal Hui MD [facility] CPT-28709 Level 3 Est. Patient 15:12:52 ASSISTANT MEDIA PLANNER Vishal Hui MD [facility] CPT-34442 Level 4 Est. Patient 09:19:27 CDT Vishal Hui MD [facility] CPT-70167 Level 3 Est. Patient 15:53:00 CDT Renzo Thornton [facility] CPT-95970 Level 3 Est. Patient 15:50:30 CDT Renzo Thornton [facility] CPT-62939 Level 3 Est. Patient 16:55:24 CDT Vishal Hui MD [facility] Procedures Code Procedure Name Date Entry Date Standard Description CPT-88500 EKG Trac and Interp - XRAY USE ONLY 11:31:43 CDT 08/26 CPT-J3420 Vitamin B12 1000mcg (Cyanocobalamin) 08:10:26 ASSISTANT MEDIA PLANNER 04/12 CPT-03743 Abx/Therapy Injection 08:10:26 ASSISTANT MEDIA PLANNER CPT-G0438 Initial Annual Wellness Exam 19:01:01 ASSISTANT MEDIA PLANNER CPT-J3420 Vitamin B12 1000mcg (Cyanocobalamin) 16:57:46 CDT 08/14 CPT-41982 Recombivax HB Injection Suspension 5 MCG/0.5ML 08:37:50 ASSISTANT MEDIA PLANNER CPT-69535 Immunization Single Admin 08:37:50 ASSISTANT MEDIA PLANNER CPT-J3420 Vitamin B12 1000mcg (Cyanocobalamin) 08:32:16 ASSISTANT MEDIA PLANNER 03/11 CPT-07774 Abx/Therapy Injection 08:32:16 ASSISTANT MEDIA PLANNER CPT-08369 Chest 2V Frontal and Lat 11:46:38 ASSISTANT MEDIA PLANNER CPT-02245 Venipuncture Draw Fee 09:12:45 ASSISTANT MEDIA PLANNER CPT-J3420 Vitamin B12 1000mcg (Cyanocobalamin) 08:50:15 ASSISTANT MEDIA PLANNER 02/08 CPT-20397 Abx/Therapy Injection 08:50:15 ASSISTANT MEDIA PLANNER CPT-Cryo Cryotherapy 10:19:35 ASSISTANT MEDIA PLANNER CPT-000 Give Appropriate Flu Vaccine 09:22:16 CDT CPT-J3420 Vitamin B12 1000mcg (Cyanocobalamin) 19:08:57 CDT 01/11 CPT-11505 Abx/Therapy Injection 19:08:57 CDT CPT-J3420 Vitamin B12 1000mcg (Cyanocobalamin) 08:19:08 CDT 12/11 CPT-45829 Abx/Therapy Injection 08:19:08 CDT CPT-J3420 Vitamin B12 1000mcg (Cyanocobalamin) 14:48:00 CDT 11/09 CPT-91939 Abx/Therapy Injection 14:47:59 CDT CPT-J3420 Vitamin B12 1000mcg (Cyanocobalamin) 08:34:04 CDT 10/09 CPT-87118 Abx/Therapy Injection 08:34:04 CDT CPT-J3420 Vitamin B12 1000mcg (Cyanocobalamin) 09:18:52 CDT 09/11 CPT-45366 Abx/Therapy Injection 09:18:52 CDT CPT-J3420 Vitamin B12 1000mcg (Cyanocobalamin) 08:35:44 CDT 09/04 CPT-95537 Abx/Therapy Injection 08:35:44 CDT CPT-11310 Immunization Single Admin 11:07:16 CDT CPT-23500 Hepatitis B adult IM 11:07:16 CDT CPT-J3420 Vitamin B12 1000mcg (Cyanocobalamin) 11:00:49 CDT 08/28 CPT-J1040 Depo Medrol 80 mg (Methyl Prednisolone Acetate) 11:00: 49 CDT CPT-99552 Abx/Therapy Injection 11:00:49 CDT CPT-J1040 Depo Medrol 80 mg (Methyl Prednisolone Acetate) 09:16: 23 CDT CPT-J3420 Vitamin B12 1000mcg (Cyanocobalamin) 08:27:05 CDT 08/20 CPT-26225 Abx/Therapy Injection 08:27:05 CDT CPT-39246 Recombivax HB Injection Suspension 5 MCG/0.5ML 10:00:41 CDT CPT-17139 Administration single or combination vaccine inc oral 10 :00:41 CDT CPT-01063 Sono transvag pelvis non OB uterus ovaries cervix 16:36: 57 CDT CPT-32800 LS spine comp w obliq 09:50:55 ASSISTANT MEDIA PLANNER CPT-59219 Abd compl w upright 09:50:55 ASSISTANT MEDIA PLANNER CPT-J1100 Decadron 4mg (Dexamethasone) 15:51:24 ASSISTANT MEDIA PLANNER CPT-J1030 Depo Medrol 40 mg (Methyl Prednisolone Acetate) 15:51: 24 ASSISTANT MEDIA PLANNER CPT-53681 Abx/Therapy Injection 15:51:24 ASSISTANT MEDIA PLANNER CPT-J1100 Decadron 4mg (Dexamethasone) 15:26:33 ASSISTANT MEDIA PLANNER CPT-J1030 Depo Medrol 40 mg (Methyl Prednisolone Acetate) 15:26: 33 ASSISTANT MEDIA PLANNER CPT-67075 Sono retroperitoneal complete kidneys and bladder 17:15: 30 CDT CPT-06282 Abd compl w upright 16:09:25 CDT CPT-J1100 Decadron 8mg (Dexamethasone) 17:07:57 CDT CPT-10632 Abx/Therapy Injection 17:07:57 CDT CPT-J1100 Decadron 8mg (Dexamethasone) 16:55:24 CDT CPT-86438 Chest 2V Frontal and Lat 16:32:44 CDT
--- OUTSIDE RECORDS SUMMARY | 2016-11-04 21:14 | XMS REPORT | Clinical Summary ---
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 V72.31 Active Suzan [...] MD Health screening ICD-V70.0 Inactive Suzan Boo SPANISH INSTRUCTOR Sinus tachycardia ICD-427.89 Inactive Suzan Boo SPANISH INSTRUCTOR Smoker/tobacco use disorder-smoking cessation discussed ICD-305.1 Inactive Vishal Hui MD Abdominal pain ICD-789.00 Inactive Vishal Hiu MD Cellulitis ICD-682.9 Inactive Vishal Hui MD [...] SOLN 30mL oral daily for IBS-C LACTULOSE 92713983338 Active Suzan Boo APRN Active TESSALON PERLES 100 MG CAPS 1 three times a day as needed for cough BENZONATATE 12969015123 No Longer Active Suzan Boo APRN Active BACTRIM DS 800-160 MG TABS 1 twice a day SULFAMETHOXAZOLE-TRIMETHOPRIM 50135829937 No Longer Active Suzan Boo APRN Active DIFLUCAN 150 MG TABS 1 by mouth for yeast FLUCONAZOLE 46179501914 No Longer Active Suzan Boo APRN Active EQ NICOTINE 21 MG/24HR TRANS PT24 Apply daily to stop smoking NICOTINE 26148881618 No Longer Active Suzan Boo APRN Active PREDNISONE 10 MG TABS 2 daily for 5 days then 1 daily for 5 days PREDNISONE 96758976138 No Longer Active Suzan Boo APRN Active LEVAQUIN 500 MG TABS 1 daily for infection LEVOFLOXACIN 31277353111 No Longer Active Suzan Boo APRN Active TROPICAMIDE 0.5 % OPHTH SOLN 1 drop PRN eye spasms TROPICAMIDE 17988408344 No Longer Active Suzan Boo APRN Active PREDNISONE 20 MG TAB 1 tablet daily x 4 days PREDNISONE 60170130004 No Longer Active Suzan Boo APRN Active ACETAMINOPHEN-CODEINE 120-12 MG/5ML SOLN 5 ml by mouth every 4-6 hours if needed for cough ACETAMINOPHEN-CODEINE 94645429924 No Longer Active Suzan Boo APRN Active KEFLEX 500 MG CAP 1 po qid CEPHALEXIN 62767538816 No Longer Active Suzan Boo APRN Active FLOVENT HFA 110 MCG/ACT AERO 2 puffs inhaled b.i.d. FLUTICASONE PROPIONATE HFA 44521129068 Active Renzo Thornton DO Active RISPERDAL 4 MG ORAL TABS 1 tab at bedtime RISPERIDONE 99104626248 Active Samantha Rothman RMA Active ZOFRAN 4 MG TABS 1 po q6hr PRN Nausea ONDANSETRON HCL No Longer Active Suzan Boo APRN Active FLUTICASONE PROPIONATE 50 MCG/ACT SUSP 2 sprays each nostril daily before bed. FLUTICASONE PROPIONATE 04835001549 No Longer Active Suzan Boo APRN Active ASPIRIN 325 MG ORAL TABS 1 tab q.d ASPIRIN 22162152038 No Longer Active Suzan Boo APRN Active HALOPERIDOL 10 MG ORAL TABS 1 tab q.d HALOPERIDOL 46258220312 No Longer Active Suzan Boo APRN Active GUAIFENESIN-CODEINE 100-10 MG/5ML SYRP 5ml every 4 to 6 hours as needed for cough GUAIFENESIN-CODEINE 47049137071 No Longer Active Suzan Boo APRN Active ZITHROMAX Z-EARNEST 250 MG TABS 2 today and then 1 daily for 4 days AZITHROMYCIN 46998215209 No Longer Active Suzan Boo APRN Active CLONAZEPAM 1 MG ORAL TABS 1 twice a day and an additional 1 tablet every other day as needed for pseudoseizures or anxiety CLONAZEPAM 09309490812 Active Ahmet Carbajal MD Active HYDROCODONE-ACETAMINOPHEN 5-325 MG ORAL TABS 1 tab two times a day HYDROCODONE-ACETAMINOPHEN 06184060802 No Longer Active Ahmet Carbajal MD Active LAMICTAL 100 MG ORAL TABS 1 tab 2 times qd. LAMOTRIGINE 20116141473 Active Ahmet Carbajal MD Active PREDNISONE 20 MG TABS 2 daily for 5 days then 1 daily for 5 days PREDNISONE 69946700742 No Longer Active Ahmet Carbajal MD Active FLUTICASONE PROPIONATE 50 MCG/ACT SUSP 1 to 2 sprays each nostril daily for allergies FLUTICASONE PROPIONATE 82949882826 Active Tila Valenzuela Active BENADRYL 25 MG CAP 4 po at bedtime for insomnia DIPHENHYDRAMINE HCL 03957358877 No Longer Active Ahmet Carbajal MD Active ADVAIR DISKUS 250-50 MCG/DOSE INH AEPB 1 puff twice a day for asthma FLUTICASONE-SALMETEROL 07390962068 No Longer Active Ahmet Carbajal MD Active KLONOPIN 1 MG ORAL TABS 1 tab po TID CLONAZEPAM 51849513464 No Longer Active Ahmet Carbajal MD Active ABILIFY MAINTENA 400 MG IM SUSR 400mg injection every 26 days ARIPIPRAZOLE 43660867068 No Longer Active Ahmet Carbajal MD Active TRAMADOL HCL 50 MG TABS 1/2-1 tab TID PRN TRAMADOL HCL 00496270937 No Longer Active Ahmet Carbajal MD Active BACTRIM DS 800-160 MG TABS 1 twice a day SULFAMETHOXAZOLE- TRIMETHOPRIM 97719127324 No Longer Active Ahmet Carbajal MD Active PROAIR HFA 108 (90 BASE) MCG/ACT AERS 2 puffs four times a day as needed 2015 ALBUTEROL SULFATE 85249300630 Active Ahmet Carbajal MD Active MONISTAT 7 COMBO PACK WOODROW 100 & 2 MG-% (9GM) VAG KIT 1 applicatorful per vagina q pm x 7 MICONAZOLE NITRATE 83628432751 No Longer Active Ahmet Carbajal MD Active FLAGYL 500 MG TAB 1 tablet by mouth bid METRONIDAZOLE 61235374712 No Longer Active Ahmet Carbajal MD Active OXYCODONE HCL ER 10 MG ORAL T12A 1/2 tab by mouth every 4 hours prn OXYCODONE HCL 95596893602 No Longer Active Ahmet Carbajal MD Active METHYLPREDNISOLONE 4 MG ORAL TABS po daily METHYLPREDNISOLONE 58528704122 No Longer Active Ahmet Carbajal MD Active LEVOFLOXACIN 500 MG ORAL TABS po daily LEVOFLOXACIN 98595099863 No Longer Active Ahmet Carbajal MD Active VIIBRYD 10 MG ORAL TABS Take 1 tablet once a day VILAZODONE HCL 40037467669 No Longer Active Ahmet Carbajal MD Active TOPAMAX 50 MG ORAL TABS 1 tab twice daily TOPIRAMATE 21777919627 No Longer Active Ahmet Carbajal MD Active DICLOFENAC SODIUM 50 MG TBEC 1 tablet by mouth four times daily PRN Pain 2015 DICLOFENAC SODIUM 64377692331 No Longer Active Ahmet Carbajal MD Active ADZENYS XR-ODT 6.3 MG ORAL TBED 1 tab po daily for ADHD AMPHETAMINE 12840171810 No Longer Active Ahmet Carbajal MD Active CHANTIX 1 MG TABS 1 twice a day to help quit smoking VARENICLINE TARTRATE 97385200314 No Longer Active Dipika Burgos MD Active CHANTIX STARTING MONTH EARNEST 0.5 MG X 11 & 1 MG X 42 TABS take as directed 2015 VARENICLINE TARTRATE 95528546155 No Longer Active Dipika Burgos MD Active TESSALON PERLES 100 MG CAP 1 to 2 tablets by mouth 3 times daily as needed for cough BENZONATATE 68138381053 No Longer Active Luigi Martínez APRN Active IMITREX 50 MG ORAL TABS 0.5 po x 1 PRN Headache. May repeat dose x 1 in 2 hours if needed SUMATRIPTAN SUCCINATE 57882490413 Active Ahmet Carbajal MD Active HYDROCODONE-ACETAMINOPHEN 5-325 MG TABS 1 to 2 four times a day as needed for pain use until can be seen by specialist HYDROCODONE- ACETAMINOPHEN 93805799864 No Longer Active Vishal Hui MD Active PROAIR HFA 108 (90 BASE) MCG/ACT AERS 2 puffs four times a day as needed 2015 ALBUTEROL SULFATE 75901768085 No Longer Active Vishal Hui MD Active PREDNISONE 20 MG TABS 2 daily for 5 days then 1 daily for 5 days PREDNISONE 40181847012 No Longer Active Vishal Hui MD Active ZITHROMAX Z-EARNEST 250 MG TABS 2 today and then 1 daily for 4 days AZITHROMYCIN 51395522490 No Longer Active Vishal Hui MD Active DICLOFENAC POTASSIUM TABS Take 1 tablet twice a day (pt. is not sure of the dose.) DICLOFENAC POTASSIUM TABS 81655207533 No Longer Active Vishal Hui MD Active VERAPAMIL HCL ER 120 MG ORAL CR-TABS Take 1 tablet by mouth twice a day. VERAPAMIL HCL 56447553249 Active Vishal Hui MD Active FLAGYL 500 MG TAB 1 tablet by mouth bid METRONIDAZOLE 31633475032 No Longer Active Vishal Hui MD Active VALIUM 5 MG TAB Take 1-2 tablets daily DIAZEPAM 24008809922 No Longer Active Fabiola Johnson APRN Active METOPROLOL TARTRATE 25 MG ORAL TABS 1/2 tablet twice daily for heart rate and blood pressure METOPROLOL TARTRATE 60691131351 No Longer Active Fabiola Johnson APRN Active MIRALAX ORAL POWD 17GMS DAILY IN WATER POLYETHYLENE GLYCOL 3350 10738399558 Active TAMARA Casey Active MIRALAX PACK 1 po qd PRN Constipation POLYETHYLENE GLYCOL 3350 87616447673 No Longer Active Ahmet Carbajal MD Active MINIPRESS 2 MG CAPS 4 cap po at night PRAZOSIN HCL 82445770676 No Longer Active Ahmet Carbajal MD Active PIROXICAM 20 MG CAPS 1 cap po qd PRN Pain PIROXICAM 56837745332 No Longer Active Ahmet Carbajal MD Active TRAMADOL HCL 50 MG TABS 1-2 po TID PRN Pain TRAMADOL HCL 56877774871 No Longer Active Ahmet Carbajal MD Active METOPROLOL TARTRATE 50 MG TAB 1 po bid METOPROLOL TARTRATE 23641730260 No Longer Active Ahmet Carbajal MD Active ABILIFY 15 MG ORAL TABS 1 tab daily ARIPIPRAZOLE 53005925274 No Longer Active Ahmet Carbajal MD Active PROZAC 20 MG ORAL CAPS 1 tab daily FLUOXETINE HCL 79423175526 No Longer Active Ahmet Carbajal MD Active AMBIEN 5 MG ORAL TABS 1 tab at bedtime ZOLPIDEM TARTRATE 22288202651 No Longer Active Ahmet Carbajal MD Active PREDNISONE 20 MG TAB 2 tabs daily for 4 days, 1 tab daily for 4 days, 1/2 tab daily for 4 days PREDNISONE 26043301837 No Longer Active Ahmet Carbajal MD Active KEFLEX 500 MG CAP 1 po TID x 10 days CEPHALEXIN 32951682485 No Longer Active Vishal Hui MD Active SAPHRIS 5 MG SUBL 1 po bid ASENAPINE MALEATE 74954889917 No Longer Active Jillina Mauricio SPANISH INSTRUCTOR Active LATUDA 80 MG TABS Take one by mouth daily LURASIDONE HCL 66005998961 No Longer Active Jillina Fralebron SPANISH INSTRUCTOR Active AMLODIPINE BESYLATE 5 MG TABS 1 tablet by mouth daily AMLODIPINE BESYLATE 28708448135 No Longer Active Jillina Mauricio NORIEGA Active AMITRIPTYLINE HCL 100 MG TAB one at hs AMITRIPTYLINE HCL 46399959046 No Longer Active Vishal Hui MD Active TRAZODONE HCL 100 MG TAB take 1 at bedtime TRAZODONE HCL 83081258920 No Longer Active Vishal Hui MD Active VYVANSE 40 MG CAPS 1 daily, LISDEXAMFETAMINE DIMESYLATE 23014687809 No Longer Active Vishal Hui MD Active IBUPROFEN 600 MG TAB 1 po TID PRN IBUPROFEN 58026183075 No Longer Active Vishal Hui MD Active PROZAC 20 MG CAP Take one by mouth daily FLUOXETINE HCL 46134289683 No Longer Active Vishal Hui MD Active BACTRIM DS 800-160 MG TABS 1 pill by mouth twice daily SULFAMETHOXAZOLE-TRIMETHOPRIM 56712931625 No Longer Active Sahara Rodriguez MD PhD Active DIFLUCAN 150 MG TAB 1 tablet by mouth daily FLUCONAZOLE 60857288572 No Longer Active Vishal Hui MD Active TIZANIDINE HCL 4 MG TABS 1 po q6hr PRN Muscle Spasm/Back Pain TIZANIDINE HCL 97361481453 Active Vishal Hui MD Active CLINDAMYCIN HCL 150 MG CAPS 1 four times a day CLINDAMYCIN HCL 14702337110 No Longer Active Neeraj Collins MD Active KEFLEX 500 MG ORAL CAPS 1 cap QID by mouth CEPHALEXIN 04925112897 No Longer Active Neeraj Collins MD Active DIFLUCAN 150 MG TABS 1 pill every other day x 2 doses FLUCONAZOLE 58737974918 No Longer Active Sahara Rodriguez MD PhD Active MELATONIN 3 MG CAPS 2 po q hs MELATONIN 77165060290 No Longer Active Sahara Rodriguez MD PhD Active MULTIVITAMINS CAPS Take one by mouth daily MULTIPLE VITAMIN 99633174008 No Longer Active Sahara Rodriguez MD PhD Active BACTRIM DS 800-160 MG TAB 1 tab by mouth twice daily TRIMETHOPRIM-SULFAMETHOXAZOLE 92742490254 No Longer Active Sahara Rodriguez MD PhD Active [facility] PROBIOTIC ORAL CHEW 2 daily po PROBIOTIC PRODUCT 35214100515 No Longer Active Sahara Rodriguez MD PhD Active BACTRIM DS 800-160 MG TABS 1 po BID x 7 days SULFAMETHOXAZOLE-TRIMETHOPRIM 53979852691 No Longer Active Vishal Hui MD Active CHANTIX STARTING MONTH EARNEST 0.5 MG X 11 & 1 MG X 42 TABS 0.5mg daily for 3 days , then 0.5mg BID for 4 days, then 1mg BID VARENICLINE TARTRATE 69204705616 No Longer Active TAMARA Gray Active VERAPAMIL HCL CR 120 MG TAB CR 1 po bid VERAPAMIL HCL 84697789575 No Longer Active Vishal Hui MD Active METOPROLOL SUCCINATE 50 MG TB24 1 tablet by mouth daily METOPROLOL SUCCINATE 82455431998 No Longer Active Vishal Hui MD Active SAPHRIS 10 MG SUBL 1 tab po bid ASENAPINE MALEATE 78617803741 No Longer Active Vishal Hui MD Active LISINOPRIL 20 MG TABS 1 tab po qd LISINOPRIL 55203516755 No Longer Active Vishal Hui MD Active LATUDA 20 MG TABS Take one by mouth daily LURASIDONE HCL 43265725326 No Longer Active Vishal Hui MD Active TRAZODONE HCL 50 MG TABS 1/2 tab po qd prn for anxiety TRAZODONE HCL 06106067406 No Longer Active Vishal Hui MD Active OMEPRAZOLE 20 MG TBEC 1 po q a.m. 30min prior to first food intake OMEPRAZOLE 48392615078 Active TAMARA Casey Active RANITIDINE HCL 150 MG CAPS 1 twice a day RANITIDINE HCL 92814272359 Active Jilljanee Martínez APRN Active LINZESS 290 MCG CAPS Take one by mouth daily LINACLOTIDE 23065213093 No Longer Active Vishal Hui MD Active SAPHRIS 5 MG SUBL 1 tab po qd ASENAPINE MALEATE 42987840379 No Longer Active Vishal Hui MD Active ZALEPLON 10 MG CAPS 1 cap po every other night ZALEPLON 38636483860 No Longer Active Vishal Hui MD Active LYRICA 50 MG CAPS 1 tab po TID PREGABALIN 82145932411 No Longer Active Vishal Hui MD Active LORATADINE 10 MG TABS 1 tab po qd LORATADINE 17297999933 No Longer Active Vishal Hui MD Active VERAPAMIL HCL ER 180 MG CR-TABS 1 tab po bid VERAPAMIL HCL 03735795245 No Longer Active Vishal Hui MD Active MIRALAX POWD 1 capfull once daily POLYETHYLENE GLYCOL 3350 48207632537 No Longer Active Vishal Hui MD Active PREDNISONE 20 MG TABS 1 tab po qd PREDNISONE 50084824791 No Longer Active Renzo Thorntno DO Active LEVOFLOXACIN 500 MG TABS 1 tab po qd LEVOFLOXACIN 04881672260 No Longer Active Renzo Thornton DO Active BUSPIRONE HCL 15 MG TABS 1 tab po TID BUSPIRONE HCL 42460091767 No Longer Active Renzo Thornton DO Active BENZTROPINE MESYLATE 1 MG TABS 1 tab po qd BENZTROPINE MESYLATE 51694142726 No Longer Active Renzo Thornton DO Active ATENOLOL 25 MG TABS 1 tab po qd ATENOLOL 93573678339 No Longer Active Renzo Thornton DO Active ESCITALOPRAM OXALATE 20 MG TABS 1 tab po qd ESCITALOPRAM OXALATE 47365667274 No Longer Active Renzo Thornton DO Active ADVAIR DISKUS 250-50 MCG/DOSE AEPB 1 puff BID FLUTICASONE-SALMETEROL 81088325348 No Longer Active Renzo Thornton DO Active PREDNISONE 20 MG TAB 2 tabs daily for 3 days, 1 tab daily for 3 days, 1/2 tab daily for 2 days PREDNISONE 38496682455 No Longer Active Vishal Hui MD Active CEFDINIR 300 MG CAPS by mouth twice a day CEFDINIR 37801502587 No Longer Active Vishal Hui MD Active LANSOPRAZOLE 30 MG CPDR 1 cap po qd LANSOPRAZOLE 25693359343 No Longer Active Vishal Hui MD Active BACLOFEN 20 MG TABS 1 tab po tid BACLOFEN 88730794851 No Longer Active Vishal Hui MD Active ADVAIR DISKUS 250-50 MCG/DOSE AEPB 1 puff BID ADVAIR DISKUS 250-50 MCG/DOSE AEPB FLUTICASONE-SALMETEROL Inactive ESCITALOPRAM OXALATE 20 MG TABS 1 tab po qd ESCITALOPRAM OXALATE 20 MG TABS 810677 ESCITALOPRAM OXALATE Inactive ATENOLOL 25 MG TABS 1 tab po qd ATENOLOL 25 MG TABS 989538 ATENOLOL Inactive BENZTROPINE MESYLATE 1 MG TABS 1 tab po qd BENZTROPINE MESYLATE 1 MG TABS 080936 BENZTROPINE MESYLATE Inactive BUSPIRONE HCL 15 MG TABS 1 tab po TID BUSPIRONE HCL 15 MG TABS 149943 BUSPIRONE HCL Inactive LEVOFLOXACIN 500 MG TABS 1 tab po qd LEVOFLOXACIN 500 MG TABS 470095 LEVOFLOXACIN Inactive PREDNISONE 20 MG TABS 1 tab po qd PREDNISONE 20 MG TABS 112637 PREDNISONE Inactive MIRALAX POWD 1 capfull once daily MIRALAX POWD 680338 POLYETHYLENE GLYCOL 3350 Inactive VERAPAMIL HCL ER 180 MG CR-TABS 1 tab po bid VERAPAMIL HCL ER 180 MG CR-TABS VERAPAMIL HCL Inactive LORATADINE 10 MG TABS 1 tab po qd LORATADINE 10 MG TABS 994441 LORATADINE Inactive LYRICA 50 MG CAPS 1 tab po TID LYRICA 50 MG CAPS PREGABALIN Inactive ZALEPLON 10 MG CAPS 1 cap po every other night ZALEPLON 10 MG CAPS 363008 ZALEPLON Inactive SAPHRIS 5 MG SUBL 1 tab po qd SAPHRIS 5 MG SUBL ASENAPINE MALEATE Inactive TRAZODONE HCL 50 MG TABS 1/2 tab po qd prn for anxiety TRAZODONE HCL 50 MG TABS 494732 TRAZODONE HCL Inactive LATUDA 20 MG TABS Take one by mouth daily LATUDA 20 MG TABS LURASIDONE HCL Inactive LISINOPRIL 20 MG TABS 1 tab po qd LISINOPRIL 20 MG TABS 719009 LISINOPRIL Inactive SAPHRIS 10 MG SUBL 1 [...] twice daily BACTRIM DS 800-160 MG TAB 255844 TRIMETHOPRIM-SULFAMETHOXAZOLE Inactive MULTIVITAMINS CAPS Take one by mouth daily MULTIVITAMINS CAPS MULTIPLE VITAMIN Inactive MELATONIN 3 MG CAPS 2 po q hs MELATONIN 3 MG CAPS 330879 MELATONIN Inactive KEFLEX 500 MG ORAL CAPS 1 cap QID by mouth KEFLEX 500 MG ORAL CAPS 058962 CEPHALEXIN Inactive CLINDAMYCIN HCL 150 MG CAPS 1 four times a day CLINDAMYCIN HCL 150 MG CAPS 248013 CLINDAMYCIN HCL Inactive DIFLUCAN 150 MG TAB 1 tablet by mouth daily DIFLUCAN 150 MG TAB 661481 FLUCONAZOLE Inactive PROZAC 20 MG CAP Take one by mouth daily PROZAC 20 MG CAP 471533 FLUOXETINE HCL Inactive IBUPROFEN 600 MG TAB 1 po TID PRN IBUPROFEN 600 MG TAB 722930 IBUPROFEN Inactive VYVANSE 40 MG CAPS 1 daily, VYVANSE 40 MG CAPS LISDEXAMFETAMINE DIMESYLATE Inactive TRAZODONE HCL 100 MG TAB take 1 at bedtime TRAZODONE HCL 100 MG TAB 318542 TRAZODONE HCL Inactive AMITRIPTYLINE HCL 100 MG TAB one at hs AMITRIPTYLINE HCL 100 MG TAB 416365 AMITRIPTYLINE HCL Inactive AMLODIPINE BESYLATE 5 MG TABS 1 tablet by mouth daily AMLODIPINE BESYLATE 5 MG TABS 955635 AMLODIPINE BESYLATE Inactive LATUDA 80 MG TABS Take one by mouth daily LATUDA 80 MG TABS LURASIDONE HCL Inactive SAPHRIS 5 MG SUBL 1 po bid SAPHRIS 5 MG SUBL ASENAPINE MALEATE Inactive PREDNISONE 20 MG TAB 2 tabs daily for 4 days, 1 tab daily for 4 days, 1/2 tab daily for 4 days PREDNISONE 20 MG TAB 078117 PREDNISONE Inactive AMBIEN 5 MG ORAL TABS 1 tab at bedtime AMBIEN 5 MG ORAL TABS 029735 ZOLPIDEM TARTRATE Inactive PROZAC 20 MG ORAL CAPS 1 tab daily PROZAC 20 MG ORAL CAPS 683988 FLUOXETINE HCL Inactive ABILIFY 15 MG ORAL TABS 1 tab daily ABILIFY 15 MG ORAL TABS 115383 ARIPIPRAZOLE Inactive METOPROLOL TARTRATE 50 MG TAB 1 po bid METOPROLOL TARTRATE 50 MG TAB 153011 METOPROLOL TARTRATE Inactive TRAMADOL HCL 50 MG TABS 1-2 po TID PRN Pain TRAMADOL HCL 50 MG TABS 228571 TRAMADOL HCL Inactive PIROXICAM 20 MG CAPS 1 cap po qd PRN Pain PIROXICAM 20 MG CAPS 049829 PIROXICAM Inactive MINIPRESS 2 MG CAPS 4 cap po at night MINIPRESS 2 MG CAPS 210571 PRAZOSIN HCL Inactive MIRALAX PACK 1 po qd PRN Constipation MIRALAX PACK 412887 POLYETHYLENE GLYCOL 3350 Inactive METOPROLOL TARTRATE 25 MG ORAL TABS 1/2 tablet twice daily for heart rate and blood pressure METOPROLOL TARTRATE 25 MG ORAL TABS 633681 METOPROLOL TARTRATE Inactive VALIUM 5 MG TAB Take 1-2 tablets daily VALIUM 5 MG TAB 300300 DIAZEPAM Inactive FLAGYL 500 MG TAB 1 tablet by mouth bid FLAGYL 500 MG TAB 577823 METRONIDAZOLE Inactive DICLOFENAC POTASSIUM TABS Take 1 tablet twice a day (pt. is not sure of the dose.) DICLOFENAC POTASSIUM TABS DICLOFENAC POTASSIUM TABS Inactive ZITHROMAX Z-EARNEST 250 MG TABS 2 today and then 1 daily for 4 days ZITHROMAX Z-EARNEST 250 MG TABS 2684737 AZITHROMYCIN Inactive PREDNISONE 20 MG TABS 2 daily for 5 days then 1 daily for 5 days PREDNISONE 20 MG TABS 558985 PREDNISONE Inactive PROAIR HFA 108 (90 BASE) MCG/ACT AERS 2 puffs four times a day as needed 2015 PROAIR HFA 108 (90 BASE) MCG/ACT AERS ALBUTEROL SULFATE Inactive HYDROCODONE-ACETAMINOPHEN 5-325 MG TABS 1 to 2 four times a day as needed for pain use until can be seen by specialist HYDROCODONE- ACETAMINOPHEN 5-325 MG TABS 620984 HYDROCODONE-ACETAMINOPHEN Inactive TESSALON PERLES 100 MG CAP 1 to 2 tablets by mouth 3 times daily as needed for cough TESSALON PERLES 100 MG CAP 191349 BENZONATATE Inactive CHANTIX STARTING MONTH EARNEST 0.5 [...] Pain 2015 DICLOFENAC SODIUM 50 MG TBEC 323710 DICLOFENAC SODIUM Inactive TOPAMAX 50 MG ORAL TABS 1 tab twice daily TOPAMAX 50 MG ORAL TABS 452808 TOPIRAMATE Inactive VIIBRYD 10 MG ORAL TABS Take 1 tablet once a day VIIBRYD 10 MG ORAL TABS VILAZODONE HCL Inactive LEVOFLOXACIN 500 MG ORAL TABS po daily LEVOFLOXACIN 500 MG ORAL TABS 977293 LEVOFLOXACIN Inactive METHYLPREDNISOLONE 4 MG ORAL TABS po daily METHYLPREDNISOLONE 4 MG ORAL TABS 482914 METHYLPREDNISOLONE Inactive OXYCODONE HCL ER 10 MG ORAL T12A 1/2 tab by mouth every 4 hours prn OXYCODONE HCL ER 10 MG ORAL T12A OXYCODONE HCL Inactive FLAGYL 500 MG TAB 1 tablet by mouth bid FLAGYL 500 MG TAB 512557 METRONIDAZOLE Inactive MONISTAT 7 COMBO PACK WOODROW 100 & 2 MG-% (9GM) VAG KIT 1 applicatorful per vagina q pm x 7 MONISTAT 7 COMBO PACK WOODROW 100 & 2 MG-% (9GM) VAG KIT MICONAZOLE NITRATE Inactive BACTRIM DS 800-160 MG TABS 1 twice a day BACTRIM DS 800-160 MG TABS 963410 SULFAMETHOXAZOLE-TRIMETHOPRIM Inactive TRAMADOL HCL 50 MG TABS 1/2-1 tab TID PRN TRAMADOL HCL 50 MG TABS 953972 TRAMADOL HCL Inactive ABILIFY MAINTENA 400 MG IM SUSR 400mg injection every 26 days ABILIFY MAINTENA 400 MG IM SUSR ARIPIPRAZOLE Inactive KLONOPIN 1 MG ORAL TABS 1 tab po TID KLONOPIN 1 MG ORAL TABS 465332 CLONAZEPAM Inactive ADVAIR DISKUS 250-50 MCG/DOSE INH AEPB 1 puff twice a day for asthma ADVAIR DISKUS 250-50 MCG/DOSE INH AEPB FLUTICASONE- SALMETEROL Inactive BENADRYL 25 MG CAP 4 po at bedtime for insomnia BENADRYL 25 MG CAP DIPHENHYDRAMINE HCL Inactive PREDNISONE 20 MG TABS 2 daily for 5 days then 1 daily for 5 days PREDNISONE 20 MG TABS 986140 PREDNISONE Inactive HYDROCODONE-ACETAMINOPHEN 5-325 MG ORAL TABS 1 tab two times a day HYDROCODONE-ACETAMINOPHEN 5-325 MG ORAL TABS 536415 HYDROCODONE-ACETAMINOPHEN Inactive ZITHROMAX Z-EARNEST 250 MG TABS 2 today and then 1 daily for 4 days ZITHROMAX Z-EARNEST 250 MG TABS 9850545 AZITHROMYCIN Inactive GUAIFENESIN-CODEINE 100-10 MG/5ML SYRP 5ml every 4 to 6 hours as needed for cough GUAIFENESIN-CODEINE 100-10 MG/5ML SYRP 584837 GUAIFENESIN-CODEINE Inactive HALOPERIDOL 10 MG ORAL TABS 1 tab q.d HALOPERIDOL 10 MG ORAL TABS 215998 HALOPERIDOL Inactive ASPIRIN 325 MG ORAL TABS 1 tab q.d ASPIRIN 325 MG ORAL TABS 048475 ASPIRIN Inactive FLUTICASONE PROPIONATE 50 MCG/ACT SUSP 2 sprays each nostril daily before bed. FLUTICASONE PROPIONATE 50 MCG/ACT SUSP 2167227 FLUTICASONE PROPIONATE Inactive ZOFRAN 4 MG TABS 1 po q6hr PRN Nausea ZOFRAN 4 MG TABS 296655 ONDANSETRON HCL Inactive KEFLEX 500 MG CAP 1 po qid KEFLEX 500 MG CAP 929328 CEPHALEXIN Inactive ACETAMINOPHEN-CODEINE 120-12 MG/5ML SOLN 5 ml by mouth every 4-6 hours if needed for cough ACETAMINOPHEN-CODEINE 120-12 MG/5ML SOLN 124020 ACETAMINOPHEN-CODEINE Inactive PREDNISONE 20 MG TAB 1 tablet daily x 4 days PREDNISONE 20 MG TAB 041518 PREDNISONE Inactive TROPICAMIDE 0.5 % OPHTH SOLN 1 drop PRN eye spasms TROPICAMIDE 0.5 % OPHTH SOLN 722480 TROPICAMIDE Inactive LEVAQUIN 500 MG TABS 1 daily for infection LEVAQUIN 500 MG TABS 047676 LEVOFLOXACIN Inactive PREDNISONE 10 MG TABS 2 daily for 5 days then 1 daily for 5 days PREDNISONE 10 MG TABS 340574 PREDNISONE Inactive EQ NICOTINE 21 MG/24HR TRANS [...] for cough TESSALON PERLES 100 MG CAPS 244533 BENZONATATE Inactive CEFDINIR 300 MG CAPS by mouth twice a day CEFDINIR 300 MG CAPS 577626 CEFDINIR Inactive PREDNISONE 20 MG TAB 2 tabs daily for 3 days, 1 tab daily for 3 days, 1/2 tab daily for 2 days PREDNISONE 20 MG TAB 398236 PREDNISONE Inactive BACTRIM DS 800-160 MG TABS [...] x 10 days KEFLEX 500 MG CAP 347458 CEPHALEXIN Inactive Advance Directives Directive Description Start [...] % 11.0-15.0 platelet count 443 THOUSAND/UL 10*3/mm3 554-804 4663/03/01 mean platelet volume 8.2 fL 7.5-12.5 leukocyte [...] % 11.0-15.0 platelet count 349 THOUSAND/UL 10*3/mm3 038-634 9287/04/12 mean platelet volume 8.4 fL 7.5-12.5 Lab [...] 369 10^3/MM^3 10*3/mm3 142-424 Lab Report: Chlamydia/GC APTIMA/[id number] - Lab chlamydia DNA probe NOT DETECTED NOT DETECTED Lab Report: Chlamydia/GC APTIMA/[id number] - Microbiology Neisseria gonorrhoeae DNA probe NOT DETECTED NOT DETECTED Lab Report: Chlamydia/GC APTIMA/[id number], Urinalysis, Complete, with Reflex ... - Lab chlamydia DNA probe NOT DETECTED NOT DETECTED Lab Report: Chlamydia/GC [facility]TIM[facility]/[id number], Urinalysis, Complete, with Reflex ... - Microbiology Neisseria gonorrhoeae DNA probe NOT DETECTED NOT DETECTED Lab Report: Chlamydia/GC [facility]TIMA/[id number], Urinalysis, Complete, with Reflex ... - Urinalysis microalbumin/total urine volume 2 mg/L Units converted. See lab report for original value. microalbumin/creatinine ratio, urine 9 MCG/MG CREAT mg/L <30 Lab Report: Comp. Metabolic Panel - Chemistry sodium, serum 142 mmol/L [phone]/06/08 carbon dioxide, venous blood 27.6 mmol/L 21.0-32.0 potassium, serum 4.0 mmol/L 3.5-5.2 chloride, serum 105 mmol/L 98-107 blood glucose 95 mg/dL 65-110 urea nitrogen, blood 8 mg/dL 7-18 creatinine, serum 0.75 mg/dL 0.55-1.30 alanine aminotransferase (SGPT), serum 49 U/L 12-78 aspartate aminotransferase (SGOT), serum 28 U/L 15-37 calcium, serum 9.4 mg/dL 8.5-10.1 bilirubin, serum, total 0.30 mg/dL 0.00-1.00 sodium, serum 140 mmol/L 750-042 7881/08/08 carbon dioxide, venous blood 33.7 mmol/L 21.0-32.0 [...] mg/dL Encounters Code Encounter Date Provider Facility CPT-94905 Level 3 Est. Patient 10:00:25 CDT Suzan Boo [facility] CPT-21741 Level 3 Est. Patient 10:29:30 CDT Suzan Boo [facility] CPT-47598 Level 3 Est. Patient 11:04:38 CDT Renzo Thornton [facility] CPT-93773 Level 3 Est. Patient 11:15:58 MEASUREMENT OPERATOR Renzo Thornton [facility] CPT-06494 Level 3 Est. Patient 15:28:23 MEASUREMENT OPERATOR Suzan Boo [facility] CPT-68256 Level 4 Est. Patient 10:20:54 MEASUREMENT OPERATOR Suzan Boo [facility] CPT-40279 Level 3 Est. Patient 11:47:37 MEASUREMENT OPERATOR Ahmet Carbajal MD [facility] CPT-43572 Level 3 Est. Patient 10:40:11 MEASUREMENT OPERATOR Ahmet Carbajal MD [facility] CPT-98652 Level 3 Est. Patient 15:07:06 MEASUREMENT OPERATOR Neeraj Collins MD [facility] CPT-18225 Level 4 Est. Patient 14:45:00 MEASUREMENT OPERATOR Ahmet Carbajal MD [facility] CPT-97229 Level 3 Est. Patient 13:59:59 CDT Luigi Martínez [facility] CPT-71561 Level 3 Est. Patient 18:18:53 CDT Neeraj Collins MD [facility] CPT-91110 Level 3 Est. Patient 15:50:44 CDT Vishal Hui MD [facility] CPT-04620 Level 3 Est. Patient 11:36:17 CDT Ahmet Carbajal MD [facility] CPT-45169 Level 3 Est. Patient 13:29:16 CDT Vishal Hui MD [facility] CPT-75792 Level 3 Est. Patient 14:27:52 CDT Neeraj Collins MD [facility] CPT-29754 Level 3 Est. Patient 08:56:03 CDT Luigi Martínez [facility] CPT-93003 Level 4 Est. Patient 12:11:48 CDT Fabiola Johnson [facility] CPT-16266 Level 3 New Patient 16:53:37 CDT Albert Caldera MD [facility] CPT-05147 Level 3 Est. Patient 11:25:49 CDT Renzo Thornton DO [facility] CPT-16094 Level 3 Est. Patient 15:22:01 CDT Ahmet Carbajal MD [facility] CPT-69242 Level 4 Est. Patient 09:00:51 MEASUREMENT OPERATOR Vishal Hui MD [facility] CPT-10201 Level 3 Est. Patient 11:37:33 MEASUREMENT OPERATOR Vishal Hui MD [facility] CPT-31162 Level 3 Est. Patient 08:41:09 MEASUREMENT OPERATOR Vishal Hui MD [facility] CPT-19012 Level 4 Est. Patient 10:19:35 MEASUREMENT OPERATOR Vishal Hui MD [facility] CPT-19754 Level 3 Est. Patient 13:35:45 CDT Vishal Hui MD [facility] CPT-63741 Level 4 Est. Patient 10:08:37 CDT Vishal Hui MD [facility] CPT-02002 Level 3 Est. Patient 11:22:10 CDT Vishal Hui MD [facility] CPT-57380 Level 3 Est. Patient 11:03:32 CDT Sahara Rodriguez MD [facility]-23243 Level 3 Est. Patient 09:41:35 CDT Vishal Hui MD [facility] CPT-59359 Level 3 Est. Patient 12:00:41 CDT Neeraj Collins MD [facility]-55352 Level 3 Est. Patient 09:16:24 CDT Vishal Hui MD [facility] CPT-63528 Level 4 Est. Patient 13:59:09 CDT Neeraj Collins MD [facility] CPT-98878 Level 3 Est. Patient 15:19:43 CDT Renzo Thornton DO [facility] CPT-48055 Level 3 Est. Patient 18:10:26 CDT Sahara Rodriguez MD [facility]-46583 Level 3 Est. Patient 14:49:50 CDT Vishal Hui MD [facility] CPT-61840 Level 4 Est. Patient 18:41:46 CDT Neeraj Clolins MD [facility] CPT-60288 Level 4 Est. Patient 09:18:38 MEASUREMENT OPERATOR Vishal Hui MD [facility] CPT-09048 Level 3 Est. Patient 14:43:55 MEASUREMENT OPERATOR Vishal Hui MD [facility] CPT-03767 Level 3 Est. Patient 15:26:33 MEASUREMENT OPERATOR Sahara Rodriguez MD PhD [facility] CPT-56136 Level 3 Est. Patient 10:32:14 MEASUREMENT OPERATOR Vishal Hui MD [facility] CPT-69120 Level 3 Est. Patient 15:12:52 MEASUREMENT OPERATOR Vishal Hui MD [facility] CPT-30642 Level 4 Est. Patient 09:19:27 CDT Vishal Hui MD [facility] CPT-75346 Level 3 Est. Patient 15:53:00 CDT Renzo Thornton [facility] CPT-39147 Level 3 Est. Patient 15:50:30 CDT Renzo Thornton [facility] CPT-44830 Level 3 Est. Patient 16:55:24 CDT Vishal Hui MD [facility] Procedures Code Procedure Name Date Entry Date Standard Description CPT-76096 Venipuncture Draw Fee 08:41:12 CDT CPT-28933 Abd compl w upright - XRAY USE ONLY 10:27:59 CDT 06/28 CPT-87488 Smoking Cessation counseling 11:15:58 MEASUREMENT OPERATOR CPT-G0439 [facility] Annual Wellness Exam 09:30:58 MEASUREMENT OPERATOR CPT-45014 TSH - LAB USE ONLY 08:50:26 MEASUREMENT OPERATOR CPT-71429 CBC - LAB USE ONLY 08:50:26 MEASUREMENT OPERATOR CPT-59057 Venipuncture Draw Fee 08:50:26 MEASUREMENT OPERATOR CPT-80503 Abx/Therapy Injection 17:34:30 MEASUREMENT OPERATOR CPT-74550 Nexplanon Removal with Reinsertion 14:09:32 CDT CPT-J7307 Nexplanon (Implant) 14:09:32 CDT CPT-OV Office Visit 14:09:32 CDT CPT-99966 UA w micro - LAB USE ONLY 16:21:13 CDT CPT-93347 [place] Mount - LAB USE ONLY 16:21:13 CDT CPT-30077 First Vx - Ix admin for Medicare patients 14:37:47 CDT CPT-90975 Fluzone Preservative Free Intramuscular Suspension 14:37 :47 CDT CPT-08265 Abx/Therapy Injection 13:54:22 CDT CPT-99668 Abx/Therapy Injection 08:47:09 CDT CPT-99009 Abx/Therapy Injection 13:29:56 CDT CPT-11930 Abx/Therapy Injection 08:36:16 CDT CPT-79959 Wet [place] - LAB USE ONLY 17:44:58 CDT CPT-98430 UA w micro - LAB USE ONLY 17:44:58 CDT CPT-13876 CMP - LAB USE ONLY 17:44:58 CDT CPT-15187 Venipuncture Draw Fee 17:44:58 CDT CPT-99486 Cervical Min 4V - XRAY USE ONLY 09:01:40 CDT CPT-08768 Chest 2V Frontal and Lat - XRAY USE ONLY 11:06:31 CDT CPT-95750 EKG Trac and Interp - XRAY USE ONLY 11:31:43 CDT 08/26 CPT-J3420 Vitamin B12 1000mcg (Cyanocobalamin) 08:10:26 MEASUREMENT OPERATOR 04/12 CPT-48573 Abx/Therapy Injection 08:10:26 MEASUREMENT OPERATOR CPT-G0438 Initial Annual Wellness Exam 19:01:01 MEASUREMENT OPERATOR CPT-J3420 Vitamin B12 1000mcg (Cyanocobalamin) 16:57:46 CDT 08/14 CPT-95306 Recombivax HB Injection Suspension 5 MCG/0.5ML 08:37:50 MEASUREMENT OPERATOR CPT-65638 Immunization Single Admin 08:37:50 MEASUREMENT OPERATOR CPT-J3420 Vitamin B12 1000mcg (Cyanocobalamin) 08:32:16 MEASUREMENT OPERATOR 03/11 CPT-93637 Abx/Therapy Injection 08:32:16 MEASUREMENT OPERATOR CPT-30919 Chest 2V Frontal and Lat 11:46:38 MEASUREMENT OPERATOR CPT-45968 Venipuncture Draw Fee 09:12:45 MEASUREMENT OPERATOR CPT-J3420 Vitamin B12 1000mcg (Cyanocobalamin) 08:50:15 MEASUREMENT OPERATOR 02/08 CPT-41223 Abx/Therapy Injection 08:50:15 MEASUREMENT OPERATOR CPT-Cryo Cryotherapy 10:19:35 MEASUREMENT OPERATOR CPT-000 Give Appropriate Flu Vaccine 09:22:16 CDT CPT-J3420 Vitamin B12 1000mcg (Cyanocobalamin) 19:08:57 CDT 01/11 CPT-94953 Abx/Therapy Injection 19:08:57 CDT CPT-J3420 Vitamin B12 1000mcg (Cyanocobalamin) 08:19:08 CDT 12/11 CPT-30348 Abx/Therapy Injection 08:19:08 CDT CPT-J3420 Vitamin B12 1000mcg (Cyanocobalamin) 14:48:00 CDT 11/09 CPT-82839 Abx/Therapy Injection 14:47:59 CDT CPT-J3420 Vitamin B12 1000mcg (Cyanocobalamin) 08:34:04 CDT 10/09 CPT-83294 Abx/Therapy Injection 08:34:04 CDT CPT-J3420 Vitamin B12 1000mcg (Cyanocobalamin) 09:18:52 CDT 09/11 CPT-79143 Abx/Therapy Injection 09:18:52 CDT CPT-J3420 Vitamin B12 1000mcg (Cyanocobalamin) 08:35:44 CDT 09/04 CPT-51505 Abx/Therapy Injection 08:35:44 CDT CPT-38568 Immunization Single Admin 11:07:16 CDT CPT-47503 Hepatitis B adult IM 11:07:16 CDT CPT-J3420 Vitamin B12 1000mcg (Cyanocobalamin) 11:00:49 CDT 08/28 CPT-J1040 Depo Medrol 80 mg (Methyl Prednisolone Acetate) 11:00: 49 CDT CPT-47350 Abx/Therapy Injection 11:00:49 CDT CPT-J1040 Depo Medrol 80 mg (Methyl Prednisolone Acetate) 09:16: 23 CDT CPT-J3420 Vitamin B12 1000mcg (Cyanocobalamin) 08:27:05 CDT 08/20 CPT-23954 Abx/Therapy Injection 08:27:05 CDT CPT-50139 Recombivax HB Injection Suspension 5 MCG/0.5ML 10:00:41 CDT CPT-68144 Administration single or combination vaccine inc oral 10 :00:41 CDT CPT-65793 Sono transvag pelvis non OB uterus ovaries cervix 16:36: 57 CDT CPT-59244 LS spine comp w obliq 09:50:55 MEASUREMENT OPERATOR CPT-95498 Abd compl w upright 09:50:55 MEASUREMENT OPERATOR CPT-J1100 Decadron 4mg (Dexamethasone) 15:51:24 MEASUREMENT OPERATOR CPT-J1030 Depo Medrol 40 mg (Methyl Prednisolone Acetate) 15:51: 24 MEASUREMENT OPERATOR CPT-32504 Abx/Therapy Injection 15:51:24 MEASUREMENT OPERATOR CPT-J1100 Decadron 4mg (Dexamethasone) 15:26:33 MEASUREMENT OPERATOR CPT-J1030 Depo Medrol 40 mg (Methyl Prednisolone Acetate) 15:26: 33 MEASUREMENT OPERATOR CPT-54132 Sono retroperitoneal complete kidneys and bladder 17:15: 30 CDT CPT-11811 Abd compl w upright 16:09:25 CDT CPT-J1100 Decadron 8mg (Dexamethasone) 17:07:57 CDT CPT-62097 Abx/Therapy Injection 17:07:57 CDT CPT-J1100 Decadron 8mg (Dexamethasone) 16:55:24 CDT CPT-66829 Chest 2V Frontal and Lat 16:32:44 CDT
--- OUTSIDE RECORDS SUMMARY | 2016-11-04 21:16 | XMS REPORT | Clinical Summary ---
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 is not sure of the dose.) DICLOFENAC POTASSIUM TABS 29757111034 Active Ahmet Carbajal MD Active MIRALAX PACK 1 po qd PRN Constipation POLYETHYLENE GLYCOL 3350 82209636255 No Longer Active Ahmet Carbajal MD Active MINIPRESS 2 MG CAPS 4 cap po at night PRAZOSIN HCL 73173905468 No Longer Active Ahmet Carbajal MD Active PIROXICAM 20 MG CAPS 1 cap po qd PRN Pain PIROXICAM 12734636920 No Longer Active Ahmet Carbajal MD Active TRAMADOL HCL 50 MG TABS 1-2 po TID PRN Pain TRAMADOL HCL 52818200629 No Longer Active Ahmet Carbajal MD Active METOPROLOL TARTRATE 50 MG TAB 1 po bid METOPROLOL TARTRATE 67264982611 No Longer Active Ahmet Carbajal MD Active ABILIFY 15 MG ORAL TABS 1 tab daily ARIPIPRAZOLE 97306281103 No Longer Active Ahmet Carbajal MD Active PROZAC 20 MG ORAL CAPS 1 tab daily FLUOXETINE HCL 09598332949 No Longer Active Ahmet Carbajal MD Active AMBIEN 5 MG ORAL TABS 1 tab at bedtime ZOLPIDEM TARTRATE 99897485929 No Longer Active Ahmet Carbajal MD Active PREDNISONE 20 MG TAB 2 tabs daily for 4 days, 1 tab daily for 4 days, 1/2 tab daily for 4 days PREDNISONE 31633941851 No Longer Active Ahmet Carbajal MD Active KEFLEX 500 MG CAP 1 po TID x 10 days CEPHALEXIN 60943123083 No Longer Active Vishal Hui MD Active ABILIFY MAINTENA 400 MG IM SUSR Injection once per month ARIPIPRAZOLE 79009850264 Active Juliet Kimbrough APRN Active IMITREX 50 MG ORAL TABS 1/2 tab every 6 hours prn SUMATRIPTAN SUCCINATE 06386055865 Active Luigi Martínez APRN Active TOPAMAX 50 MG ORAL TABS 1 tab twice daily TOPIRAMATE 29134557431 Active Vishal Hui MD Active SAPHRIS 5 MG SUBL 1 po bid ASENAPINE MALEATE 94813182865 No Longer Active Luigi Martínez APRN Active LATUDA 80 MG TABS Take one by mouth daily LURASIDONE HCL 83944235382 No Longer Active Luigi Martínez APRN Active AMLODIPINE BESYLATE 5 MG TABS 1 tablet by mouth daily AMLODIPINE BESYLATE 17777013536 No Longer Active Luigi Martínez APRN Active AMITRIPTYLINE HCL 100 MG TAB one at hs AMITRIPTYLINE HCL 28410855088 No Longer Active Vishal Hui MD Active TRAZODONE HCL 100 MG TAB take 1 at bedtime TRAZODONE HCL 55713499477 No Longer Active Vishal Hui MD Active VYVANSE 40 MG CAPS 1 daily, LISDEXAMFETAMINE DIMESYLATE 32284261050 No Longer Active Vishal Hui MD Active IBUPROFEN 600 MG TAB 1 po TID PRN IBUPROFEN 95105435823 No Longer Active Vishal uHi MD Active PROZAC 20 MG CAP Take one by mouth daily FLUOXETINE HCL 39603916421 No Longer Active Vishal Hui MD Active ZOFRAN 4 MG TABS 1 po q6hr PRN Nausea ONDANSETRON HCL Active Vishal Hui MD Active BACTRIM DS 800-160 MG TABS 1 pill by mouth twice daily SULFAMETHOXAZOLE-TRIMETHOPRIM 96163246159 No Longer Active Sahara Rodriguez MD PhD Active DIFLUCAN 150 MG TAB 1 tablet by mouth daily FLUCONAZOLE 91109859234 No Longer Active Vishal Hui MD Active TIZANIDINE HCL 4 MG TABS 1 po q6hr PRN Muscle Spasm/Back Pain TIZANIDINE HCL 21334091319 Active Luigi Martínez APRN Active CLINDAMYCIN HCL 150 MG CAPS 1 four times a day CLINDAMYCIN HCL 08489848470 No Longer Active Neeraj Collins MD Active KEFLEX 500 MG ORAL CAPS 1 cap QID by mouth CEPHALEXIN 98850744781 No Longer Active Neeraj Collins MD Active DIFLUCAN 150 MG TABS 1 pill every other day x 2 doses FLUCONAZOLE 71598150156 No Longer Active Sahara Rodriguez MD PhD Active MELATONIN 3 MG CAPS 2 po q hs MELATONIN 69643896411 No Longer Active Sahara Rodriguez MD PhD Active MULTIVITAMINS CAPS Take one by mouth daily MULTIPLE VITAMIN 29810397766 No Longer Active Sahara Rodriguez MD PhD Active BACTRIM DS 800-160 MG TAB 1 tab by mouth twice daily TRIMETHOPRIM-SULFAMETHOXAZOLE 34675579295 No Longer Active Sahara Rodriguez MD PhD Active [facility] PROBIOTIC ORAL CHEW 2 daily po PROBIOTIC PRODUCT 87911778999 No Longer Active Sahara Rodriguez MD PhD Active BACTRIM DS 800-160 MG TABS 1 po BID x 7 days SULFAMETHOXAZOLE-TRIMETHOPRIM 93600709265 No Longer Active Vishal Hui MD Active CHANTIX STARTING MONTH EARNEST 0.5 MG X 11 & 1 MG X 42 TABS 0.5mg daily for 3 days , then 0.5mg BID for 4 days, then 1mg BID VARENICLINE TARTRATE 39942242429 No Longer Active TAMARA Gray Active VERAPAMIL HCL CR 120 MG TAB CR 1 po bid VERAPAMIL HCL 51260680845 No Longer Active Vishal Hui MD Active METOPROLOL SUCCINATE 50 MG TB24 1 tablet by mouth daily METOPROLOL SUCCINATE 38760740542 No Longer Active Vishal Hui MD Active SAPHRIS 10 MG SUBL 1 tab po bid ASENAPINE MALEATE 62875656228 No Longer Active Vishal Hui MD Active LISINOPRIL 20 MG TABS 1 tab po qd LISINOPRIL 80899678149 No Longer Active Vishal Hui MD Active BENADRYL 25 MG CAP 2 po tid prn anxiety DIPHENHYDRAMINE HCL 02122207964 Active Vishal Hui MD Active LATUDA 20 MG TABS Take one by mouth daily LURASIDONE HCL 84601172581 No Longer Active Vishal Hui MD Active TRAZODONE HCL 50 MG TABS 1/2 tab po qd prn for anxiety TRAZODONE HCL 08868053528 No Longer Active Vishal Hui MD Active OMEPRAZOLE 20 MG TBEC 1 po q a.m. 30min prior to first food intake OMEPRAZOLE 76415877282 Active Vishal Hui MD Active RANITIDINE HCL 150 MG CAPS 1 twice a day RANITIDINE HCL 90483271849 Active Vishal Hui MD Active LINZESS 290 MCG CAPS Take one by mouth daily LINACLOTIDE 78411842858 No Longer Active Vishal Hui MD Active SAPHRIS 5 MG SUBL 1 tab po qd ASENAPINE MALEATE 33141360937 No Longer Active Vishal Hui MD Active ZALEPLON 10 MG CAPS 1 cap po every other night ZALEPLON 84905065664 No Longer Active Vishal Hui MD Active LYRICA 50 MG CAPS 1 tab po TID PREGABALIN 20703258210 No Longer Active Vishal Hui MD Active LORATADINE 10 MG TABS 1 tab po qd LORATADINE 62702996698 No Longer Active Vishal Hui MD Active VERAPAMIL HCL ER 180 MG CR-TABS 1 tab po bid VERAPAMIL HCL 75880427377 No Longer Active Vishal Hui MD Active MIRALAX POWD 1 capfull once daily POLYETHYLENE GLYCOL 3350 16984731946 No Longer Active Vishal Hui MD Active PREDNISONE 20 MG TABS 1 tab po qd PREDNISONE 36687927410 No Longer Active Renzo Thornton DO Active LEVOFLOXACIN 500 MG TABS 1 tab po qd LEVOFLOXACIN 91207740951 No Longer Active Renzo Thornton DO Active BUSPIRONE HCL 15 MG TABS 1 tab po TID BUSPIRONE HCL 67062324242 No Longer Active Renzo Thornton DO Active BENZTROPINE MESYLATE 1 MG TABS 1 tab po qd BENZTROPINE MESYLATE 29567906701 No Longer Active Renzo Thornton DO Active ATENOLOL 25 MG TABS 1 tab po qd ATENOLOL 02712297972 No Longer Active Renzo Thornton DO Active ESCITALOPRAM OXALATE 20 MG TABS 1 tab po qd ESCITALOPRAM OXALATE 43705899757 No Longer Active Renzo Thornton DO Active ADVAIR DISKUS 250-50 MCG/DOSE AEPB 1 puff BID FLUTICASONE-SALMETEROL 87984844488 No Longer Active Renzo Thornton DO Active PREDNISONE 20 MG TAB 2 tabs daily for 3 days, 1 tab daily for 3 days, 1/2 tab daily for 2 days PREDNISONE 44553185862 No Longer Active Vishal Hui MD Active CEFDINIR 300 MG CAPS by mouth twice a day CEFDINIR 28626193846 No Longer Active Vishal Hui MD Active LANSOPRAZOLE 30 MG CPDR 1 cap po qd LANSOPRAZOLE 41349035449 No Longer Active Vishal Hui MD Active BACLOFEN 20 MG TABS 1 tab po tid BACLOFEN 36526387196 No Longer Active Vishal Hui MD Active ADVAIR DISKUS 250-50 MCG/DOSE AEPB 1 puff BID ADVAIR DISKUS 250-50 MCG/DOSE AEPB FLUTICASONE-SALMETEROL Inactive ESCITALOPRAM OXALATE 20 MG TABS 1 tab po qd ESCITALOPRAM OXALATE 20 MG TABS 498925 ESCITALOPRAM OXALATE Inactive ATENOLOL 25 MG TABS 1 tab po qd ATENOLOL 25 MG TABS 410356 ATENOLOL Inactive BENZTROPINE MESYLATE 1 MG TABS 1 tab po qd BENZTROPINE MESYLATE 1 MG TABS 967366 BENZTROPINE MESYLATE Inactive BUSPIRONE HCL 15 MG TABS 1 tab po TID BUSPIRONE HCL 15 MG TABS 189956 BUSPIRONE HCL Inactive LEVOFLOXACIN 500 MG TABS 1 tab po qd LEVOFLOXACIN 500 MG TABS 705887 LEVOFLOXACIN Inactive PREDNISONE 20 MG TABS 1 tab po qd PREDNISONE 20 MG TABS 704324 PREDNISONE Inactive MIRALAX POWD 1 capfull once daily MIRALAX POWD 118311 POLYETHYLENE GLYCOL 3350 Inactive VERAPAMIL HCL ER 180 MG CR-TABS 1 tab po bid VERAPAMIL HCL ER 180 MG CR-TABS VERAPAMIL HCL Inactive LORATADINE 10 MG TABS 1 tab po qd LORATADINE 10 MG TABS 934016 LORATADINE Inactive LYRICA 50 MG CAPS 1 tab po TID LYRICA 50 MG CAPS PREGABALIN Inactive ZALEPLON 10 MG CAPS 1 cap po every other night ZALEPLON 10 MG CAPS 961858 ZALEPLON Inactive SAPHRIS 5 MG SUBL 1 tab po qd SAPHRIS 5 MG SUBL ASENAPINE MALEATE Inactive TRAZODONE HCL 50 MG TABS 1/2 tab po qd prn for anxiety TRAZODONE HCL 50 MG TABS 399470 TRAZODONE HCL Inactive LATUDA 20 MG TABS Take one by mouth daily LATUDA 20 MG TABS LURASIDONE HCL Inactive LISINOPRIL 20 MG TABS 1 tab po qd LISINOPRIL 20 MG TABS 744103 LISINOPRIL Inactive SAPHRIS 10 MG SUBL 1 [...] twice daily BACTRIM DS 800-160 MG TAB 721329 TRIMETHOPRIM-SULFAMETHOXAZOLE Inactive MULTIVITAMINS CAPS Take one by mouth daily MULTIVITAMINS CAPS MULTIPLE VITAMIN Inactive MELATONIN 3 MG CAPS 2 po q hs MELATONIN 3 MG CAPS 775578 MELATONIN Inactive KEFLEX 500 MG ORAL CAPS 1 cap QID by mouth KEFLEX 500 MG ORAL CAPS 011547 CEPHALEXIN Inactive CLINDAMYCIN HCL 150 MG CAPS 1 four times a day CLINDAMYCIN HCL 150 MG CAPS 559976 CLINDAMYCIN HCL Inactive DIFLUCAN 150 MG TAB 1 tablet by mouth daily DIFLUCAN 150 MG TAB 994518 FLUCONAZOLE Inactive PROZAC 20 MG CAP Take one by mouth daily PROZAC 20 MG CAP 875775 FLUOXETINE HCL Inactive IBUPROFEN 600 MG TAB 1 po TID PRN IBUPROFEN 600 MG TAB 220025 IBUPROFEN Inactive VYVANSE 40 MG CAPS 1 daily, VYVANSE 40 MG CAPS LISDEXAMFETAMINE DIMESYLATE Inactive TRAZODONE HCL 100 MG TAB take 1 at bedtime TRAZODONE HCL 100 MG TAB 713112 TRAZODONE HCL Inactive AMITRIPTYLINE HCL 100 MG TAB one at hs AMITRIPTYLINE HCL 100 MG TAB 480523 AMITRIPTYLINE HCL Inactive AMLODIPINE BESYLATE 5 MG TABS 1 tablet by mouth daily AMLODIPINE BESYLATE 5 MG TABS 891935 AMLODIPINE BESYLATE Inactive LATUDA 80 MG TABS Take one by mouth daily LATUDA 80 MG TABS LURASIDONE HCL Inactive SAPHRIS 5 MG SUBL 1 po bid SAPHRIS 5 MG SUBL ASENAPINE MALEATE Inactive PREDNISONE 20 MG TAB 2 tabs daily for 4 days, 1 tab daily for 4 days, 1/2 tab daily for 4 days PREDNISONE 20 MG TAB 149241 PREDNISONE Inactive AMBIEN 5 MG ORAL TABS 1 tab at bedtime AMBIEN 5 MG ORAL TABS 933520 ZOLPIDEM TARTRATE Inactive PROZAC 20 MG ORAL CAPS 1 tab daily PROZAC 20 MG ORAL CAPS 342945 FLUOXETINE HCL Inactive ABILIFY 15 MG ORAL TABS 1 tab daily ABILIFY 15 MG ORAL TABS 705699 ARIPIPRAZOLE Inactive METOPROLOL TARTRATE 50 MG TAB 1 po bid METOPROLOL TARTRATE 50 MG TAB 061680 METOPROLOL TARTRATE Inactive TRAMADOL HCL 50 MG TABS 1-2 po TID PRN Pain TRAMADOL HCL 50 MG TABS 766949 TRAMADOL HCL Inactive PIROXICAM 20 MG CAPS 1 cap po qd PRN Pain PIROXICAM 20 MG CAPS 591361 PIROXICAM Inactive MINIPRESS 2 MG CAPS 4 cap po at night MINIPRESS 2 MG CAPS 095126 PRAZOSIN HCL Inactive MIRALAX PACK 1 po qd PRN Constipation MIRALAX PACK 846144 POLYETHYLENE GLYCOL 3350 Inactive CEFDINIR 300 MG CAPS by mouth twice a day CEFDINIR 300 MG CAPS 483184 CEFDINIR Inactive PREDNISONE 20 MG TAB 2 tabs daily for 3 days, 1 tab daily for 3 days, 1/2 tab daily for 2 days PREDNISONE 20 MG TAB 800791 PREDNISONE Inactive BACTRIM DS 800-160 MG TABS 1 po BID x 7 days BACTRIM DS 800-160 MG TABS 19820521 SULFAMETHOXAZOLE-TRIMETHOPRIM Inactive DIFLUCAN 150 MG TABS 1 pill every other day x 2 doses DIFLUCAN 150 MG TABS 780216 FLUCONAZOLE Inactive BACTRIM DS 800-160 MG TABS 1 pill by mouth twice daily BACTRIM DS 800-160 MG TABS 19820521 SULFAMETHOXAZOLE-TRIMETHOPRIM Inactive KEFLEX 500 MG CAP 1 po TID x 10 days KEFLEX 500 MG CAP 802074 CEPHALEXIN Inactive Advance Directives Directive Description Start [...] % 11.6-14.8 platelet count 394 10^3/MM^3 10*3/mm3 746-048 9815/01/11 leukocyte count, blood 13.8 10^3/MM^3 10*3/mm3 4.6-10.2 [...] Panel - Chemistry sodium, serum 139 mmol/L 077-789 3823/12/03 carbon dioxide, venous blood 28.5 mmol/L 21.0-32.0 [...] 5.5 % 4.3-6.0 cholesterol, serum 159 mg/dL 616-622 8926/12/03 triglyceride, serum, fasting 118 mg/dL 30-200 HDL [...] Panel - Chemistry sodium, serum 139 mmol/L 801-630 3419/12/22 carbon dioxide, venous blood 26.8 mmol/L 21.0-32.0 potassium, serum 4.2 mmol/L 3.5-5.2 chloride, serum 103 mmol/L 98-107 blood glucose 115 mg/dL 65-110 urea nitrogen, blood 20 mg/dL 7-18 creatinine, serum 0.90 mg/dL 0.55-1.30 alanine aminotransferase (SGPT), serum 38 U/L aspartate aminotransferase (SGOT), serum 19 U/L 15-37 calcium, serum 8.6 mg/dL 8.5-10.1 bilirubin, serum, total 0.30 mg/dL 0.00-1.00 sodium, serum 139 mmol/L 938-088 7042/01/11 carbon dioxide, venous blood 26.6 mmol/L 21.0-32.0 potassium, serum 4.1 mmol/L 3.5-5.2 chloride, serum 100 mmol/L 98-107 blood glucose 86 mg/dL 65-110 urea nitrogen, blood 16 mg/dL 7-18 creatinine, serum 1.00 mg/dL 0.55-1.30 alanine aminotransferase (SGPT), serum 48 U/L aspartate aminotransferase (SGOT), serum 17 U/L 15-37 calcium, serum 9.1 mg/dL 8.5-10.1 bilirubin, serum, total 0.40 mg/dL 0.00-1.00 sodium, serum 142 mmol/L 770-243 6901/06/08 carbon dioxide, venous blood 27.6 mmol/L 21.0-32.0 [...] Rate - Chemistry sodium, serum 139 mmol/L 046-254 8470/12/11 carbon dioxide, venous blood 25.4 mmol/L 21.0-32.0 [...] 5.0-8.5 Encounters Code Encounter Date Provider Facility CPT-19110 Level 3 Est. Patient 15:22:01 CDT Ahmet Carbajal MD [facility]-43543 Level 4 Est. Patient 09:00:51 BAKERY ASSOCIATE Vishal Hui MD [facility]-52228 Level 3 Est. Patient 11:37:33 BAKERY ASSOCIATE Vishal Hui MD [facility] CPT-07827 Level 3 Est. Patient 08:41:09 BAKERY ASSOCIATE Vishal Hui MD [facility]-68157 Level 4 Est. Patient 10:19:35 BAKERY ASSOCIATE Vishal Hui MD [facility] CPT-36295 Level 3 Est. Patient 13:35:45 CDT Vishal Hui MD [facility] CPT-78765 Level 4 Est. Patient 10:08:37 CDT Vishal Hui MD [facility] CPT-13188 Level 3 Est. Patient 11:22:10 CDT Vishal Hui MD [facility] CPT-82207 Level 3 Est. Patient 11:03:32 CDT Sahara Rodriguez MD PhD [facility]-38215 Level 3 Est. Patient 09:41:35 CDT Vishal Hui MD [facility]-82192 Level 3 Est. Patient 12:00:41 CDT Neeraj Collins MD [facility]-02556 Level 3 Est. Patient 09:16:24 CDT Vishal Hui MD [facility]-31327 Level 4 Est. Patient 13:59:09 CDT Neeraj Collins MD [facility]-92964 Level 3 Est. Patient 15:19:[address] [facility] CPT-73570 Level 3 Est. Patient 18:10:26 CDT Sahara Rodriguez MD PhD [facility] CPT-59256 Level 3 Est. Patient 14:49:50 CDT Vishal Hui MD [facility] CPT-51470 Level 4 Est. Patient 18:41:46 CDT Neeraj Collins MD [facility] CPT-21373 Level 4 Est. Patient 09:18:38 BAKERY ASSOCIATE Vishal Hui MD [facility] CPT-59366 Level 3 Est. Patient 14:43:55 BAKERY ASSOCIATE Vishal Hui MD [facility] CPT-47992 Level 3 Est. Patient 15:26:33 BAKERY ASSOCIATE Sahara Rodriguez MD PhD [facility] CPT-53405 Level 3 Est. Patient 10:32:14 BAKERY ASSOCIATE Vishal Hui MD [facility] CPT-11215 Level 3 Est. Patient 15:12:52 BAKERY ASSOCIATE Vishal Hui MD [facility] CPT-63940 Level 4 Est. Patient 09:19:27 CDT Vishal Hui MD [facility] CPT-93075 Level 3 Est. Patient 15:53:[address] [facility] CPT-54994 Level 3 Est. Patient 15:50:[address] [facility] CPT-93121 Level 3 Est. Patient 16:55:24 CDT Vishal Hui MD [facility] Procedures Code Procedure Name Date Entry Date Standard Description CPT-J3420 Vitamin B12 1000mcg (Cyanocobalamin) 08:10:26 BAKERY ASSOCIATE 04/12 CPT-63085 Abx/Therapy Injection 08:10:26 BAKERY ASSOCIATE CPT-G0438 Initial Annual Wellness Exam 19:01:01 BAKERY ASSOCIATE CPT-J3420 Vitamin B12 1000mcg (Cyanocobalamin) 16:57:46 CDT 08/14 CPT-63214 Recombivax HB Injection Suspension 5 MCG/0.5ML 08:37:50 BAKERY ASSOCIATE CPT-06368 Immunization Single Admin 08:37:50 BAKERY ASSOCIATE CPT-J3420 Vitamin B12 1000mcg (Cyanocobalamin) 08:32:16 BAKERY ASSOCIATE 03/11 CPT-80452 Abx/Therapy Injection 08:32:16 BAKERY ASSOCIATE CPT-73373 Chest 2V Frontal and Lat 11:46:38 BAKERY ASSOCIATE CPT-87145 Venipuncture Draw Fee 09:12:45 BAKERY ASSOCIATE CPT-J3420 Vitamin B12 1000mcg (Cyanocobalamin) 08:50:15 BAKERY ASSOCIATE 02/08 CPT-34504 Abx/Therapy Injection 08:50:15 BAKERY ASSOCIATE CPT-Cryo Cryotherapy 10:19:35 BAKERY ASSOCIATE CPT-000 Give Appropriate Flu Vaccine 09:22:16 CDT CPT-J3420 Vitamin B12 1000mcg (Cyanocobalamin) 19:08:57 CDT 01/11 CPT-42798 Abx/Therapy Injection 19:08:57 CDT CPT-J3420 Vitamin B12 1000mcg (Cyanocobalamin) 08:19:08 CDT 12/11 CPT-11350 Abx/Therapy Injection 08:19:08 CDT CPT-J3420 Vitamin B12 1000mcg (Cyanocobalamin) 14:48:00 CDT 11/09 CPT-31501 Abx/Therapy Injection 14:47:59 CDT CPT-J3420 Vitamin B12 1000mcg (Cyanocobalamin) 08:34:04 CDT 10/09 CPT-92168 Abx/Therapy Injection 08:34:04 CDT CPT-J3420 Vitamin B12 1000mcg (Cyanocobalamin) 09:18:52 CDT 09/11 CPT-54080 Abx/Therapy Injection 09:18:52 CDT CPT-J3420 Vitamin B12 1000mcg (Cyanocobalamin) 08:35:44 CDT 09/04 CPT-57881 Abx/Therapy Injection 08:35:44 CDT CPT-63262 Immunization Single Admin 11:07:16 CDT CPT-96103 Hepatitis B adult IM 11:07:16 CDT CPT-J3420 Vitamin B12 1000mcg (Cyanocobalamin) 11:00:49 CDT 08/28 CPT-J1040 Depo Medrol 80 mg (Methyl Prednisolone Acetate) 11:00: 49 CDT CPT-75657 Abx/Therapy Injection 11:00:49 CDT CPT-J1040 Depo Medrol 80 mg (Methyl Prednisolone Acetate) 09:16: 23 CDT CPT-J3420 Vitamin B12 1000mcg (Cyanocobalamin) 08:27:05 CDT 08/20 CPT-15206 Abx/Therapy Injection 08:27:05 CDT CPT-75081 Recombivax HB Injection Suspension 5 MCG/0.5ML 10:00:41 CDT CPT-05495 Administration single or combination vaccine inc oral 10 :00:41 CDT CPT-87714 Sono transvag pelvis non OB uterus ovaries cervix 16:36: 57 CDT CPT-77696 LS spine comp w obliq 09:50:55 BAKERY ASSOCIATE CPT-41412 Abd compl w upright 09:50:55 BAKERY ASSOCIATE CPT-J1100 Decadron 4mg (Dexamethasone) 15:51:24 BAKERY ASSOCIATE CPT-J1030 Depo Medrol 40 mg (Methyl Prednisolone Acetate) 15:51: 24 BAKERY ASSOCIATE CPT-76099 Abx/Therapy Injection 15:51:24 BAKERY ASSOCIATE CPT-J1100 Decadron 4mg (Dexamethasone) 15:26:33 BAKERY ASSOCIATE CPT-J1030 Depo Medrol 40 mg (Methyl Prednisolone Acetate) 15:26: 33 BAKERY ASSOCIATE CPT-52200 Sono retroperitoneal complete kidneys and bladder 17:15: 30 CDT CPT-44366 Abd compl w upright 16:09:25 CDT CPT-J1100 Decadron 8mg (Dexamethasone) 17:07:57 CDT CPT-83977 Abx/Therapy Injection 17:07:57 CDT CPT-J1100 Decadron 8mg (Dexamethasone) 16:55:24 CDT CPT-21129 Chest 2V Frontal and Lat 16:32:44 CDT
--- OUTSIDE RECORDS SUMMARY | 2016-11-04 21:19 | XMS REPORT | Clinical Summary ---
Author Author Admin, E Organization [facility] [employer] 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 FLUTICASONE PROPIONATE 28885288300 Active Fabiola Johnson APRN Active VERAPAMIL HCL ER 120 MG ORAL CR-TABS 1 tab po daily for blood pressure 09/27 VERAPAMIL HCL 43492876686 Active Fabiola Johnson APRN Active ADZENYS XR-ODT 6.3 MG ORAL TBED 1 tab po daily for ADHD AMPHETAMINE 42376560419 Active Fabiola Johnson APRN Active BENADRYL 25 MG CAP 4 po at bedtime for insomnia DIPHENHYDRAMINE HCL 22132057120 Active Fabiola Johnson APRN Active KLONOPIN 1 MG ORAL TABS 1 tab po TID CLONAZEPAM 61172103100 Active Fabiola Johnson APRN Active VALIUM 5 MG TAB Take 1-2 tablets daily DIAZEPAM 13046296823 No Longer Active Fabiola Johnson APRN Active METOPROLOL TARTRATE 25 MG ORAL TABS 1/2 tablet twice daily for heart rate and blood pressure METOPROLOL TARTRATE 83363043764 No Longer Active Fabiola Johnson APRN Active MIRALAX ORAL POWD 17GMS DAILY IN WATER POLYETHYLENE GLYCOL 3350 29626354162 Active Vishal Hui MD Active VIIBRYD 10 MG ORAL TABS Take 1 tablet once a day VILAZODONE HCL 03668045783 Active Ahmet Carbajal MD Active DICLOFENAC POTASSIUM TABS Take 1 tablet twice a day (pt. is not sure of the dose.) DICLOFENAC POTASSIUM TABS 14612272584 Active Ahmet Carbajal MD Active MIRALAX PACK 1 po qd PRN Constipation POLYETHYLENE GLYCOL 3350 59704639027 No Longer Active Ahmet Carbajal MD Active MINIPRESS 2 MG CAPS 4 cap po at night PRAZOSIN HCL 49960886488 No Longer Active Ahmet Carbajal MD Active PIROXICAM 20 MG CAPS 1 cap po qd PRN Pain PIROXICAM 48135587510 No Longer Active Ahmet Carbajal MD Active TRAMADOL HCL 50 MG TABS 1-2 po TID PRN Pain TRAMADOL HCL 05198738930 No Longer Active Ahmet Carbajal MD Active METOPROLOL TARTRATE 50 MG TAB 1 po bid METOPROLOL TARTRATE 18375717488 No Longer Active Ahmet Carbajal MD Active ABILIFY 15 MG ORAL TABS 1 tab daily ARIPIPRAZOLE 08375894965 No Longer Active Ahmet Carbajal MD Active PROZAC 20 MG ORAL CAPS 1 tab daily FLUOXETINE HCL 76330872819 No Longer Active Ahmet Carbajal MD Active AMBIEN 5 MG ORAL TABS 1 tab at bedtime ZOLPIDEM TARTRATE 91687000227 No Longer Active Ahmet Carbajal MD Active PREDNISONE 20 MG TAB 2 tabs daily for 4 days, 1 tab daily for 4 days, 1/2 tab daily for 4 days PREDNISONE 32385080911 No Longer Active Ahmet Carbajal MD Active KEFLEX 500 MG CAP 1 po TID x 10 days CEPHALEXIN 60224019045 No Longer Active Vishal Hui MD Active ABILIFY MAINTENA 400 MG IM SUSR Injection once per month ARIPIPRAZOLE 70030992019 Active Juliet Kimbrough APRN Active IMITREX 50 MG ORAL TABS 1/2 tab every 6 hours prn SUMATRIPTAN SUCCINATE 46424291242 Active Jillina Mauricio NORIEGA Active TOPAMAX 50 MG ORAL TABS 1 tab twice daily TOPIRAMATE 13410346831 Active Vishal Hui MD Active SAPHRIS 5 MG SUBL 1 po bid ASENAPINE MALEATE 31974151673 No Longer Active Luigi Martínez APRN Active LATUDA 80 MG TABS Take one by mouth daily LURASIDONE HCL 04773224463 No Longer Active Luigi Martínez APRN Active AMLODIPINE BESYLATE 5 MG TABS 1 tablet by mouth daily AMLODIPINE BESYLATE 99848470273 No Longer Active Luigi Martínez APRN Active AMITRIPTYLINE HCL 100 MG TAB one at hs AMITRIPTYLINE HCL 10466253731 No Longer Active Vishal Hui MD Active TRAZODONE HCL 100 MG TAB take 1 at bedtime TRAZODONE HCL 53084391343 No Longer Active Vishal Hui MD Active VYVANSE 40 MG CAPS 1 daily, LISDEXAMFETAMINE DIMESYLATE 50256223517 No Longer Active Vishal Hui MD Active IBUPROFEN 600 MG TAB 1 po TID PRN IBUPROFEN 27765864829 No Longer Active Vishal Hui MD Active PROZAC 20 MG CAP Take one by mouth daily FLUOXETINE HCL 58508340202 No Longer Active Vishal Hui MD Active ZOFRAN 4 MG TABS 1 po q6hr PRN Nausea ONDANSETRON HCL Active Vishal Hui MD Active BACTRIM DS 800-160 MG TABS 1 pill by mouth twice daily SULFAMETHOXAZOLE-TRIMETHOPRIM 62755778599 No Longer Active Sahara Rodriguez MD PhD Active DIFLUCAN 150 MG TAB 1 tablet by mouth daily FLUCONAZOLE 80370369695 No Longer Active Vishal Hui MD Active TIZANIDINE HCL 4 MG TABS 1 po q6hr PRN Muscle Spasm/Back Pain TIZANIDINE HCL 49979330779 Active Luigi Martínez APRN Active CLINDAMYCIN HCL 150 MG CAPS 1 four times a day CLINDAMYCIN HCL 56912289952 No Longer Active Neeraj Collins MD Active KEFLEX 500 MG ORAL CAPS 1 cap QID by mouth CEPHALEXIN 86667719408 No Longer Active Neeraj Collins MD Active DIFLUCAN 150 MG TABS 1 pill every other day x 2 doses FLUCONAZOLE 27968897700 No Longer Active Sahara Rodriguez MD PhD Active MELATONIN 3 MG CAPS 2 po q hs MELATONIN 41683263635 No Longer Active Sahara Rodriguez MD PhD Active MULTIVITAMINS CAPS Take one by mouth daily MULTIPLE VITAMIN 86212014664 No Longer Active Sahara Rodriguez MD PhD Active BACTRIM DS 800-160 MG TAB 1 tab by mouth twice daily TRIMETHOPRIM-SULFAMETHOXAZOLE 61327050305 No Longer Active Sahara Rodriguez MD PhD Active [facility] PROBIOTIC ORAL CHEW 2 daily po PROBIOTIC PRODUCT 65292286258 No Longer Active Sahara Rodriguez MD PhD Active BACTRIM DS 800-160 MG TABS 1 po BID x 7 days SULFAMETHOXAZOLE-TRIMETHOPRIM 42721124258 No Longer Active Vishal Hui MD Active CHANTIX STARTING MONTH EARNEST 0.5 MG X 11 & 1 MG X 42 TABS 0.5mg daily for 3 days , then 0.5mg BID for 4 days, then 1mg BID VARENICLINE TARTRATE 94020533653 No Longer Active TAMARA Gray Active VERAPAMIL HCL CR 120 MG TAB CR 1 po bid VERAPAMIL HCL 07576437936 No Longer Active Vishal Hui MD Active METOPROLOL SUCCINATE 50 MG TB24 1 tablet by mouth daily METOPROLOL SUCCINATE 13233919506 No Longer Active Vishal Hui MD Active SAPHRIS 10 MG SUBL 1 tab po bid ASENAPINE MALEATE 79225932514 No Longer Active Vishal Hui MD Active LISINOPRIL 20 MG TABS 1 tab po qd LISINOPRIL 95365227965 No Longer Active Vishal Hui MD Active LATUDA 20 MG TABS Take one by mouth daily LURASIDONE HCL 51245119087 No Longer Active Vishal Hui MD Active TRAZODONE HCL 50 MG TABS 1/2 tab po qd prn for anxiety TRAZODONE HCL 36715707651 No Longer Active Vishal Hui MD Active OMEPRAZOLE 20 MG TBEC 1 po q a.m. 30min prior to first food intake OMEPRAZOLE 67131360949 Active Vishal Hui MD Active RANITIDINE HCL 150 MG CAPS 1 twice a day RANITIDINE HCL 22988406562 Active Luigi Swensondwightephraim LEANN Active LINZESS 290 MCG CAPS Take one by mouth daily LINACLOTIDE 90571422365 No Longer Active Vishal Hui MD Active SAPHRIS 5 MG SUBL 1 tab po qd ASENAPINE MALEATE 75727648507 No Longer Active Vishal Hui MD Active ZALEPLON 10 MG CAPS 1 cap po every other night ZALEPLON 21143485107 No Longer Active Vishal Hui MD Active LYRICA 50 MG CAPS 1 tab po TID PREGABALIN 67710682103 No Longer Active Vishal Hui MD Active LORATADINE 10 MG TABS 1 tab po qd LORATADINE 23090575873 No Longer Active Vishal Hui MD Active VERAPAMIL HCL ER 180 MG CR-TABS 1 tab po bid VERAPAMIL HCL 03304469578 No Longer Active Vishal Hui MD Active MIRALAX POWD 1 capfull once daily POLYETHYLENE GLYCOL 3350 25672251491 No Longer Active Vishal Hui MD Active PREDNISONE 20 MG TABS 1 tab po qd PREDNISONE 81962365068 No Longer Active Renzo Thornton DO Active LEVOFLOXACIN 500 MG TABS 1 tab po qd LEVOFLOXACIN 42570425882 No Longer Active Renzo Thornton DO Active BUSPIRONE HCL 15 MG TABS 1 tab po TID BUSPIRONE HCL 09156497307 No Longer Active Renzo Thornton DO Active BENZTROPINE MESYLATE 1 MG TABS 1 tab po qd BENZTROPINE MESYLATE 49232587924 No Longer Active Renzo Thornton DO Active ATENOLOL 25 MG TABS 1 tab po qd ATENOLOL 10906085704 No Longer Active Renzo Thornton DO Active ESCITALOPRAM OXALATE 20 MG TABS 1 tab po qd ESCITALOPRAM OXALATE 73169580894 No Longer Active Renzo Thornton DO Active ADVAIR DISKUS 250-50 MCG/DOSE AEPB 1 puff BID FLUTICASONE-SALMETEROL 11021972216 No Longer Active Renzo Thornton DO Active PREDNISONE 20 MG TAB 2 tabs daily for 3 days, 1 tab daily for 3 days, 1/2 tab daily for 2 days PREDNISONE 88229303261 No Longer Active Vishal Hui MD Active CEFDINIR 300 MG CAPS by mouth twice a day CEFDINIR 56161949883 No Longer Active Vishal Hui MD Active LANSOPRAZOLE 30 MG CPDR 1 cap po qd LANSOPRAZOLE 61435944947 No Longer Active Vishal Hui MD Active BACLOFEN 20 MG TABS 1 tab po tid BACLOFEN 60325058394 No Longer Active Vishal Hui MD Active ADVAIR DISKUS 250-50 MCG/DOSE AEPB 1 puff BID ADVAIR DISKUS 250-50 MCG/DOSE AEPB FLUTICASONE-SALMETEROL Inactive ESCITALOPRAM OXALATE 20 MG TABS 1 tab po qd ESCITALOPRAM OXALATE 20 MG TABS 571642 ESCITALOPRAM OXALATE Inactive ATENOLOL 25 MG TABS 1 tab po qd ATENOLOL 25 MG TABS 333991 ATENOLOL Inactive BENZTROPINE MESYLATE 1 MG TABS 1 tab po qd BENZTROPINE MESYLATE 1 MG TABS 456531 BENZTROPINE MESYLATE Inactive BUSPIRONE HCL 15 MG TABS 1 tab po TID BUSPIRONE HCL 15 MG TABS 194282 BUSPIRONE HCL Inactive LEVOFLOXACIN 500 MG TABS 1 tab po qd LEVOFLOXACIN 500 MG TABS 259961 LEVOFLOXACIN Inactive PREDNISONE 20 MG TABS 1 tab po qd PREDNISONE 20 MG TABS 408749 PREDNISONE Inactive MIRALAX POWD 1 capfull once daily MIRALAX POWD 153524 POLYETHYLENE GLYCOL 3350 Inactive VERAPAMIL HCL ER 180 MG CR-TABS 1 tab po bid VERAPAMIL HCL ER 180 MG CR-TABS VERAPAMIL HCL Inactive LORATADINE 10 MG TABS 1 tab po qd LORATADINE 10 MG TABS 619852 LORATADINE Inactive LYRICA 50 MG CAPS 1 tab po TID LYRICA 50 MG CAPS PREGABALIN Inactive ZALEPLON 10 MG CAPS 1 cap po every other night ZALEPLON 10 MG CAPS 098634 ZALEPLON Inactive SAPHRIS 5 MG SUBL 1 tab po qd SAPHRIS 5 MG SUBL ASENAPINE MALEATE Inactive TRAZODONE HCL 50 MG TABS 1/2 tab po qd prn for anxiety TRAZODONE HCL 50 MG TABS 029006 TRAZODONE HCL Inactive LATUDA 20 MG TABS Take one by mouth daily LATUDA 20 MG TABS LURASIDONE HCL Inactive LISINOPRIL 20 MG TABS 1 tab po qd LISINOPRIL 20 MG TABS 421018 LISINOPRIL Inactive SAPHRIS 10 MG SUBL 1 [...] twice daily BACTRIM DS 800-160 MG TAB 262555 TRIMETHOPRIM-SULFAMETHOXAZOLE Inactive MULTIVITAMINS CAPS Take one by mouth daily MULTIVITAMINS CAPS MULTIPLE VITAMIN Inactive MELATONIN 3 MG CAPS 2 po q hs MELATONIN 3 MG CAPS 19950526 MELATONIN Inactive KEFLEX 500 MG ORAL CAPS 1 cap QID by mouth KEFLEX 500 MG ORAL CAPS 683334 CEPHALEXIN Inactive CLINDAMYCIN HCL 150 MG CAPS 1 four times a day CLINDAMYCIN HCL 150 MG CAPS 19740326 CLINDAMYCIN HCL Inactive DIFLUCAN 150 MG TAB 1 tablet by mouth daily DIFLUCAN 150 MG TAB 171931 FLUCONAZOLE Inactive PROZAC 20 MG CAP Take one by mouth daily PROZAC 20 MG CAP 851320 FLUOXETINE HCL Inactive IBUPROFEN 600 MG TAB 1 po TID PRN IBUPROFEN 600 MG TAB 926251 IBUPROFEN Inactive VYVANSE 40 MG CAPS 1 daily, VYVANSE 40 MG CAPS LISDEXAMFETAMINE DIMESYLATE Inactive TRAZODONE HCL 100 MG TAB take 1 at bedtime TRAZODONE HCL 100 MG TAB 423523 TRAZODONE HCL Inactive AMITRIPTYLINE HCL 100 MG TAB one at hs AMITRIPTYLINE HCL 100 MG TAB 253200 AMITRIPTYLINE HCL Inactive AMLODIPINE BESYLATE 5 MG TABS 1 tablet by mouth daily AMLODIPINE BESYLATE 5 MG TABS 677280 AMLODIPINE BESYLATE Inactive LATUDA 80 MG TABS Take one by mouth daily LATUDA 80 MG TABS LURASIDONE HCL Inactive SAPHRIS 5 MG SUBL 1 po bid SAPHRIS 5 MG SUBL ASENAPINE MALEATE Inactive PREDNISONE 20 MG TAB 2 tabs daily for 4 days, 1 tab daily for 4 days, 1/2 tab daily for 4 days PREDNISONE 20 MG TAB 376283 PREDNISONE Inactive AMBIEN 5 MG ORAL TABS 1 tab at bedtime AMBIEN 5 MG ORAL TABS 457085 ZOLPIDEM TARTRATE Inactive PROZAC 20 MG ORAL CAPS 1 tab daily PROZAC 20 MG ORAL CAPS 501154 FLUOXETINE HCL Inactive ABILIFY 15 MG ORAL TABS 1 tab daily ABILIFY 15 MG ORAL TABS 903838 ARIPIPRAZOLE Inactive METOPROLOL TARTRATE 50 MG TAB 1 po bid METOPROLOL TARTRATE 50 MG TAB 140996 METOPROLOL TARTRATE Inactive TRAMADOL HCL 50 MG TABS 1-2 po TID PRN Pain TRAMADOL HCL 50 MG TABS 739397 TRAMADOL HCL Inactive PIROXICAM 20 MG CAPS 1 cap po qd PRN Pain PIROXICAM 20 MG CAPS 889652 PIROXICAM Inactive MINIPRESS 2 MG CAPS 4 cap po at night MINIPRESS 2 MG CAPS 665825 PRAZOSIN HCL Inactive MIRALAX PACK 1 po qd PRN Constipation MIRALAX PACK 919692 POLYETHYLENE GLYCOL 3350 Inactive METOPROLOL TARTRATE 25 MG ORAL TABS 1/2 tablet twice daily for heart rate and blood pressure METOPROLOL TARTRATE 25 MG ORAL TABS 823464 METOPROLOL TARTRATE Inactive VALIUM 5 MG TAB Take 1-2 tablets daily VALIUM 5 MG TAB 977992 DIAZEPAM Inactive CEFDINIR 300 MG CAPS by mouth twice a day CEFDINIR 300 MG CAPS 055218 CEFDINIR Inactive PREDNISONE 20 MG TAB 2 tabs daily for 3 days, 1 tab daily for 3 days, 1/2 tab daily for 2 days PREDNISONE 20 MG TAB 713019 PREDNISONE Inactive BACTRIM DS 800-160 MG TABS [...] x 10 days KEFLEX 500 MG CAP 041530 CEPHALEXIN Inactive Advance Directives Directive Description Start [...] % 11.6-14.8 platelet count 394 10^3/MM^3 10*3/mm3 880-513 2309/01/11 leukocyte count, blood 13.8 10^3/MM^3 10*3/mm3 4.6-10.2 [...] Panel - Chemistry sodium, serum 139 mmol/L 168-781 0630/12/03 carbon dioxide, venous blood 28.5 mmol/L 21.0-32.0 [...] 5.5 % 4.3-6.0 cholesterol, serum 159 mg/dL 331-598 2976/12/03 triglyceride, serum, fasting 118 mg/dL 30-200 HDL [...] Panel - Chemistry sodium, serum 139 mmol/L 241-760 6337/12/22 carbon dioxide, venous blood 26.8 mmol/L 21.0-32.0 potassium, serum 4.2 mmol/L 3.5-5.2 chloride, serum 103 mmol/L 98-107 blood glucose 115 mg/dL 65-110 urea nitrogen, blood 20 mg/dL 7-18 creatinine, serum 0.90 mg/dL 0.55-1.30 alanine aminotransferase (SGPT), serum 38 U/L -78 aspartate aminotransferase (SGOT), serum 19 U/L 15-37 calcium, serum 8.6 mg/dL 8.5-10.1 bilirubin, serum, total 0.30 mg/dL 0.00-1.00 sodium, serum 139 mmol/L 184-569 9379/01/11 carbon dioxide, venous blood 26.6 mmol/L 21.0-32.0 potassium, serum 4.1 mmol/L 3.5-5.2 chloride, serum 100 mmol/L 98-107 blood glucose 86 mg/dL 65-110 urea nitrogen, blood 16 mg/dL 7-18 creatinine, serum 1.00 mg/dL 0.55-1.30 alanine aminotransferase (SGPT), serum 48 U/L -78 aspartate aminotransferase (SGOT), serum 17 U/L 15-37 calcium, serum 9.1 mg/dL 8.5-10.1 bilirubin, serum, total 0.40 mg/dL 0.00-1.00 sodium, serum 142 mmol/L 628-828 1750/06/08 carbon dioxide, venous blood 27.6 mmol/L 21.0-32.0 [...] Rate - Chemistry sodium, serum 139 mmol/L 336-888 1156/12/11 carbon dioxide, venous blood 25.4 mmol/L 21.0-32.0 [...] mg/dL Encounters Code Encounter Date Provider Facility CPT-70980 Level 3 Est. Patient 08:56:03 CDT Luigi Martínez [facility] CPT-45767 Level 4 Est. Patient 12:11:48 CDT Fabiola Johnson [facility] CPT-95762 Level 3 New Patient 16:53:37 CDT Albert Caldera MD [facility] CPT-98396 Level 3 Est. Patient 11:25:49 CDT Renzo Thornton DO [facility] CPT-10141 Level 3 Est. Patient 15:22:01 CDT Ahmet Carbajal MD [facility] CPT-05076 Level 4 Est. Patient 09:00:51 [employer] Vishal Hui MD [facility] CPT-49727 Level 3 Est. Patient 11:37:33 [employer]EL[employer] Vishal Hui MD [facility] CPT-75386 Level 3 Est. Patient 08:41:09 [employer]EL[employer] Vishal Hui MD [facility] CPT-77233 Level 4 Est. Patient 10:19:35 [employer]EL[employer] Vishal Hui MD [facility] CPT-48922 Level 3 Est. Patient 13:35:45 CDT Vishal Hui MD [facility] CPT-11395 Level 4 Est. Patient 10:08:37 CDT Vishal Hui MD [facility] CPT-11951 Level 3 Est. Patient 11:22:10 CDT Vishal Hui MD [facility] CPT-54063 Level 3 Est. Patient 11:03:32 CDT Sahara Rodriguez MD [facility]-79724 Level 3 Est. Patient 09:41:35 CDT Vishal Hui MD [facility] CPT-88835 Level 3 Est. Patient 12:00:41 CDT Neeraj Collins MD [facility]-92016 Level 3 Est. Patient 09:16:24 CDT Vishal Hui MD [facility] CPT-97070 Level 4 Est. Patient 13:59:09 CDT Neeraj Collins MD [facility] CPT-48734 Level 3 Est. Patient 15:19:43 CDT Renzo Thornton DO [facility] CPT-21219 Level 3 Est. Patient 18:10:26 CDT Sahara Rodriguez MD [facility] [facility]-55581 Level 3 Est. Patient 14:49:50 CDT Vishal Hui MD [facility]-39935 Level 4 Est. Patient 18:41:46 CDT Neeraj Collins MD [facility]-54546 Level 4 Est. Patient 09:18:38 [employer]EL[employer] Vishal Hui MD [facility] CPT-16282 Level 3 Est. Patient 14:43:55 [employer]EL[employer] Vishal Hui MD [facility]-87700 Level 3 Est. Patient 15:26:33 [employer]EL[employer] Sahara Rodriguez MD [facility]-70927 Level 3 Est. Patient 10:32:14 [employer]EL[employer] Vishal Hui MD [facility] CPT-09963 Level 3 Est. Patient 15:12:52 [employer] Vishal Hui MD [facility] CPT-07886 Level 4 Est. Patient 09:19:27 CDT Vishal Hui MD [facility] CPT-55025 Level 3 Est. Patient 15:53:00 CDT Renzo Thornton [facility] CPT-37514 Level 3 Est. Patient 15:50:30 CDT Renzo Thornton [facility] CPT-73331 Level 3 Est. Patient 16:55:24 CDT Vishal Hui MD [facility] Procedures Code Procedure Name Date Entry Date Standard Description CPT-97305 Cervical Min 4V - XRAY USE ONLY 09:01:40 CDT CPT-78353 Chest 2V Frontal and Lat - XRAY USE ONLY 11:06:31 CDT CPT-67302 EKG Trac and Interp - XRAY USE ONLY 11:31:43 CDT 08/26 CPT-J3420 Vitamin B12 1000mcg (Cyanocobalamin) 08:10:26 [employer]EL[employer] 04/12 CPT-25268 Abx/Therapy Injection 08:10:26 [employer] CPT-G0438 Initial Annual Wellness Exam 19:01:01 [employer]EL[employer] CPT-J3420 Vitamin B12 1000mcg (Cyanocobalamin) 16:57:46 CDT 08/14 CPT-32039 Recombivax HB Injection Suspension 5 MCG/0.5ML 08:37:50 [employer] CPT-26129 Immunization Single Admin 08:37:50 [employer] CPT-J3420 Vitamin B12 1000mcg (Cyanocobalamin) 08:32:16 [employer] 03/11 CPT-58579 Abx/Therapy Injection 08:32:16 [employer] CPT-61641 Chest 2V Frontal and Lat 11:46:38 [employer] CPT-11558 Venipuncture Draw Fee 09:12:45 [employer]EL[employer] CPT-J3420 Vitamin B12 1000mcg (Cyanocobalamin) 08:50:15 [employer] 02/08 CPT-97272 Abx/Therapy Injection 08:50:15 [employer]EL[employer] CPT-Cryo Cryotherapy 10:19:35 [employer] CPT-000 Give Appropriate Flu Vaccine 09:22:16 CDT CPT-J3420 Vitamin B12 1000mcg (Cyanocobalamin) 19:08:57 CDT 01/11 CPT-63521 Abx/Therapy Injection 19:08:57 CDT CPT-J3420 Vitamin B12 1000mcg (Cyanocobalamin) 08:19:08 CDT 12/11 CPT-78119 Abx/Therapy Injection 08:19:08 CDT CPT-J3420 Vitamin B12 1000mcg (Cyanocobalamin) 14:48:00 CDT 11/09 CPT-63078 Abx/Therapy Injection 14:47:59 CDT CPT-J3420 Vitamin B12 1000mcg (Cyanocobalamin) 08:34:04 CDT 10/09 CPT-00242 Abx/Therapy Injection 08:34:04 CDT CPT-J3420 Vitamin B12 1000mcg (Cyanocobalamin) 09:18:52 CDT 09/11 CPT-94141 Abx/Therapy Injection 09:18:52 CDT CPT-J3420 Vitamin B12 1000mcg (Cyanocobalamin) 08:35:44 CDT 09/04 CPT-80346 Abx/Therapy Injection 08:35:44 CDT CPT-70970 Immunization Single Admin 11:07:16 CDT CPT-68796 Hepatitis B adult IM 11:07:16 CDT CPT-J3420 Vitamin B12 1000mcg (Cyanocobalamin) 11:00:49 CDT 08/28 CPT-J1040 Depo Medrol 80 mg (Methyl Prednisolone Acetate) 11:00: 49 CDT CPT-32672 Abx/Therapy Injection 11:00:49 CDT CPT-J1040 Depo Medrol 80 mg (Methyl Prednisolone Acetate) 09:16: 23 CDT CPT-J3420 Vitamin B12 1000mcg (Cyanocobalamin) 08:27:05 CDT 08/20 CPT-91174 Abx/Therapy Injection 08:27:05 CDT CPT-13113 Recombivax HB Injection Suspension 5 MCG/0.5ML 10:00:41 CDT CPT-09883 Administration single or combination vaccine inc oral 10 :00:41 CDT CPT-28911 Sono transvag pelvis non OB uterus ovaries cervix 16:36: 57 CDT CPT-08097 LS spine comp w obliq 09:50:55 [employer] CPT-79465 Abd compl w upright 09:50:55 [employer] CPT-J1100 Decadron 4mg (Dexamethasone) 15:51:24 [employer] CPT-J1030 Depo Medrol 40 mg (Methyl Prednisolone Acetate) 15:51: 24 [employer] CPT-94313 Abx/Therapy Injection 15:51:24 [employer]EL[employer] CPT-J1100 Decadron 4mg (Dexamethasone) 15:26:33 [employer]EL[employer] CPT-J1030 Depo Medrol 40 mg (Methyl Prednisolone Acetate) 15:26: 33 [employer] CPT-25119 Sono retroperitoneal complete kidneys and bladder 17:15: 30 CDT CPT-86385 Abd compl w upright 16:09:25 CDT CPT-J1100 Decadron 8mg (Dexamethasone) 17:07:57 CDT CPT-89014 Abx/Therapy Injection 17:07:57 CDT CPT-J1100 Decadron 8mg (Dexamethasone) 16:55:24 CDT CPT-78650 Chest 2V Frontal and Lat 16:32:44 CDT
--- OUTSIDE RECORDS SUMMARY | 2016-11-04 21:21 | XMS REPORT | Clinical Summary ---
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 Juliet Kimbrough SHAKE MAKER Dependence on other enabling machines and [...] IM SUSR Injection once per month ARIPIPRAZOLE 92270915008 Active Juliet Kimbrough APRN Active PREDNISONE 20 MG TAB 2 tabs daily for 4 days, 1 tab daily for 4 days, 1/2 tab daily for 4 days PREDNISONE 60414252387 Active Vishal Hui MD Active IMITREX 50 MG ORAL TABS 1/2 tab every 6 hours prn SUMATRIPTAN SUCCINATE 99121548419 Active Jillina Mauricio WALTERSN Active AMBIEN 5 MG ORAL TABS 1 tab at bedtime ZOLPIDEM TARTRATE 29106009981 Active Pacollina Mauricio WALTERSN Active PROZAC 20 MG ORAL CAPS 1 tab daily FLUOXETINE HCL 27812046490 Active Tataina Mauricio WALTERSN Active ABILIFY 15 MG ORAL TABS 1 tab daily ARIPIPRAZOLE 80470253612 Active Pacollina Mauricio WALTERSN Active MINIPRESS 2 MG CAPS 4 cap po at night PRAZOSIN HCL 71960020949 Active Jillina Mauricio WALTERSN Active TOPAMAX 50 MG ORAL TABS 1 tab twice daily TOPIRAMATE 62630932551 Active Jillina Frazelephraim WALTERSN Active SAPHRIS 5 MG SUBL 1 po bid ASENAPINE MALEATE 39658281517 No Longer Active Jillina Mauricio WALTERSN Active LATUDA 80 MG TABS Take one by mouth daily LURASIDONE HCL 73966388434 No Longer Active Luigi Martínez APRN Active AMLODIPINE BESYLATE 5 MG TABS 1 tablet by mouth daily AMLODIPINE BESYLATE 55370093412 No Longer Active Luigi Martínez SHAKE MAKER Active AMITRIPTYLINE HCL 100 MG TAB one at hs AMITRIPTYLINE HCL 66994348821 No Longer Active Vishal Hui MD Active TRAZODONE HCL 100 MG TAB take 1 at bedtime TRAZODONE HCL 62358275205 No Longer Active Vishal Hui MD Active VYVANSE 40 MG CAPS 1 daily, LISDEXAMFETAMINE DIMESYLATE 91457734302 No Longer Active Vishal Hui MD Active IBUPROFEN 600 MG TAB 1 po TID PRN IBUPROFEN 43992161554 No Longer Active Vishal Hui MD Active MIRALAX PACK 1 po qd PRN Constipation POLYETHYLENE GLYCOL 3350 98909477011 Active Vishal Hui MD Active PROZAC 20 MG CAP Take one by mouth daily FLUOXETINE HCL 78836861611 No Longer Active Vishal Hui MD Active ZOFRAN 4 MG TABS 1 po q6hr PRN Nausea ONDANSETRON HCL Active Vishal Hui MD Active BACTRIM DS 800-160 MG TABS 1 pill by mouth twice daily SULFAMETHOXAZOLE-TRIMETHOPRIM 86489121206 No Longer Active Sahara Rodriguez MD PhD Active DIFLUCAN 150 MG TAB 1 tablet by mouth daily FLUCONAZOLE 07586439351 No Longer Active Vishal Hui MD Active TIZANIDINE HCL 4 MG TABS 1 po q6hr PRN Muscle Spasm/Back Pain TIZANIDINE HCL 05646728851 Active Luigi Martínez APRN Active CLINDAMYCIN HCL 150 MG CAPS 1 four times a day CLINDAMYCIN HCL 94533839005 No Longer Active Neeraj Collins MD Active KEFLEX 500 MG ORAL CAPS 1 cap QID by mouth CEPHALEXIN 96863563113 No Longer Active Neeraj Collins MD Active DIFLUCAN 150 MG TABS 1 pill every other day x 2 doses FLUCONAZOLE 74814070877 No Longer Active Sahara Rodriguez MD PhD Active MELATONIN 3 MG CAPS 2 po q hs MELATONIN 00794299742 No Longer Active Sahara Rodriguez MD PhD Active MULTIVITAMINS CAPS Take one by mouth daily MULTIPLE VITAMIN 10627613773 No Longer Active Sahara Rodriguez MD PhD Active BACTRIM DS 800-160 MG TAB 1 tab by mouth twice daily TRIMETHOPRIM-SULFAMETHOXAZOLE 86651213965 No Longer Active Sahara Rodriguez MD PhD Active [facility] PROBIOTIC ORAL CHEW 2 daily po PROBIOTIC PRODUCT 87436472478 No Longer Active Sahara Rodriguez MD PhD Active BACTRIM DS 800-160 MG TABS 1 po BID x 7 days SULFAMETHOXAZOLE-TRIMETHOPRIM 01699759743 No Longer Active Vishal Hui MD Active CHANTIX STARTING MONTH EARNEST 0.5 MG X 11 & 1 MG X 42 TABS 0.5mg daily for 3 days , then 0.5mg BID for 4 days, then 1mg BID VARENICLINE TARTRATE 52006125386 No Longer Active TAMARA Gray Active METOPROLOL TARTRATE 50 MG TAB 1 po bid METOPROLOL TARTRATE 02597407761 Active Vishal Hui MD Active VERAPAMIL HCL CR 120 MG TAB CR 1 po bid VERAPAMIL HCL 34851986241 No Longer Active Vishal Hui MD Active METOPROLOL SUCCINATE 50 MG TB24 1 tablet by mouth daily METOPROLOL SUCCINATE 20154829504 No Longer Active Vishal Hui MD Active TRAMADOL HCL 50 MG TABS 1-2 po TID PRN Pain TRAMADOL HCL 46151697969 Active Luigi Martínez APRN Active SAPHRIS 10 MG SUBL 1 tab po bid ASENAPINE MALEATE 87591467846 No Longer Active Vishal Hui MD Active LISINOPRIL 20 MG TABS 1 tab po qd LISINOPRIL 96560145941 No Longer Active Vishal Hui MD Active BENADRYL 25 MG CAP 2 po tid prn anxiety DIPHENHYDRAMINE HCL 18610756600 Active Vishal Hui MD Active LATUDA 20 MG TABS Take one by mouth daily LURASIDONE HCL 72098214947 No Longer Active Vishal Hui MD Active TRAZODONE HCL 50 MG TABS 1/2 tab po qd prn for anxiety TRAZODONE HCL 50028199245 No Longer Active Vishal Hui MD Active PIROXICAM 20 MG CAPS 1 cap po qd PRN Pain PIROXICAM 96156995779 Active Vishal Hui MD Active OMEPRAZOLE 20 MG TBEC 1 po q a.m. 30min prior to first food intake OMEPRAZOLE 88597625783 Active Vishal Hui MD Active RANITIDINE HCL 150 MG CAPS 1 twice a day RANITIDINE HCL 03373897053 Active Vishal Hui MD Active LINZESS 290 MCG CAPS Take one by mouth daily LINACLOTIDE 96721692764 No Longer Active Vishal Hui MD Active SAPHRIS 5 MG SUBL 1 tab po qd ASENAPINE MALEATE 04665819593 No Longer Active Vishal Hui MD Active ZALEPLON 10 MG CAPS 1 cap po every other night ZALEPLON 41900224856 No Longer Active Vishal Hui MD Active LYRICA 50 MG CAPS 1 tab po TID PREGABALIN 28459220596 No Longer Active Vishal Hui MD Active LORATADINE 10 MG TABS 1 tab po qd LORATADINE 93210301440 No Longer Active Vishal Hui MD Active VERAPAMIL HCL ER 180 MG CR-TABS 1 tab po bid VERAPAMIL HCL 55762199184 No Longer Active Vishal Hui MD Active MIRALAX POWD 1 capfull once daily POLYETHYLENE GLYCOL 3350 82847632520 No Longer Active Vishal Hui MD Active PREDNISONE 20 MG TABS 1 tab po qd PREDNISONE 94124556650 No Longer Active Renzo Thornton DO Active LEVOFLOXACIN 500 MG TABS 1 tab po qd LEVOFLOXACIN 61479599080 No Longer Active Renzo Thornton DO Active BUSPIRONE HCL 15 MG TABS 1 tab po TID BUSPIRONE HCL 85053065862 No Longer Active Renzo Thornton DO Active BENZTROPINE MESYLATE 1 MG TABS 1 tab po qd BENZTROPINE MESYLATE 90821753435 No Longer Active Renzo Thornton DO Active ATENOLOL 25 MG TABS 1 tab po qd ATENOLOL 59204944735 No Longer Active Renzo Thornton DO Active ESCITALOPRAM OXALATE 20 MG TABS 1 tab po qd ESCITALOPRAM OXALATE 34083746368 No Longer Active Renzo Thornton DO Active ADVAIR DISKUS 250-50 MCG/DOSE AEPB 1 puff BID FLUTICASONE-SALMETEROL 74331693286 No Longer Active Renzo Thornton DO Active PREDNISONE 20 MG TAB 2 tabs daily for 3 days, 1 tab daily for 3 days, 1/2 tab daily for 2 days PREDNISONE 67653096334 No Longer Active Vishal Hui MD Active CEFDINIR 300 MG CAPS by mouth twice a day CEFDINIR 89438775304 No Longer Active Vishal Hui MD Active LANSOPRAZOLE 30 MG CPDR 1 cap po qd LANSOPRAZOLE 11250849248 No Longer Active Vishal Hui MD Active BACLOFEN 20 MG TABS 1 tab po tid BACLOFEN 38193184962 No Longer Active Vishal Hui MD Active ADVAIR DISKUS 250-50 MCG/DOSE AEPB 1 puff BID ADVAIR DISKUS 250-50 MCG/DOSE AEPB FLUTICASONE-SALMETEROL Inactive ESCITALOPRAM OXALATE 20 MG TABS 1 tab po qd ESCITALOPRAM OXALATE 20 MG TABS 924026 ESCITALOPRAM OXALATE Inactive ATENOLOL 25 MG TABS 1 tab po qd ATENOLOL 25 MG TABS 999430 ATENOLOL Inactive BENZTROPINE MESYLATE 1 MG TABS 1 tab po qd BENZTROPINE MESYLATE 1 MG TABS 161817 BENZTROPINE MESYLATE Inactive BUSPIRONE HCL 15 MG TABS 1 tab po TID BUSPIRONE HCL 15 MG TABS 272591 BUSPIRONE HCL Inactive LEVOFLOXACIN 500 MG TABS 1 tab po qd LEVOFLOXACIN 500 MG TABS 073281 LEVOFLOXACIN Inactive PREDNISONE 20 MG TABS 1 tab po qd PREDNISONE 20 MG TABS 861204 PREDNISONE Inactive MIRALAX POWD 1 capfull once daily MIRALAX POWD 162020 POLYETHYLENE GLYCOL 3350 Inactive VERAPAMIL HCL ER 180 MG CR-TABS 1 tab po bid VERAPAMIL HCL ER 180 MG CR-TABS VERAPAMIL HCL Inactive LORATADINE 10 MG TABS 1 tab po qd LORATADINE 10 MG TABS 452350 LORATADINE Inactive LYRICA 50 MG CAPS 1 tab po TID LYRICA 50 MG CAPS PREGABALIN Inactive ZALEPLON 10 MG CAPS 1 cap po every other night ZALEPLON 10 MG CAPS 190891 ZALEPLON Inactive SAPHRIS 5 MG SUBL 1 tab po qd SAPHRIS 5 MG SUBL ASENAPINE MALEATE Inactive TRAZODONE HCL 50 MG TABS 1/2 tab po qd prn for anxiety TRAZODONE HCL 50 MG TABS 445550 TRAZODONE HCL Inactive LATUDA 20 MG TABS Take one by mouth daily LATUDA 20 MG TABS LURASIDONE HCL Inactive LISINOPRIL 20 MG TABS 1 tab po qd LISINOPRIL 20 MG TABS 228170 LISINOPRIL Inactive SAPHRIS 10 MG SUBL 1 [...] twice daily BACTRIM DS 800-160 MG TAB 350453 TRIMETHOPRIM-SULFAMETHOXAZOLE Inactive MULTIVITAMINS CAPS Take one by mouth daily MULTIVITAMINS CAPS MULTIPLE VITAMIN Inactive MELATONIN 3 MG CAPS 2 po q hs MELATONIN 3 MG CAPS 560365 MELATONIN Inactive KEFLEX 500 MG ORAL CAPS 1 cap QID by mouth KEFLEX 500 MG ORAL CAPS 655458 CEPHALEXIN Inactive CLINDAMYCIN HCL 150 MG CAPS 1 four times a day CLINDAMYCIN HCL 150 MG CAPS 987506 CLINDAMYCIN HCL Inactive DIFLUCAN 150 MG TAB 1 tablet by mouth daily DIFLUCAN 150 MG TAB 898308 FLUCONAZOLE Inactive PROZAC 20 MG CAP Take one by mouth daily PROZAC 20 MG CAP 515508 FLUOXETINE HCL Inactive IBUPROFEN 600 MG TAB 1 po TID PRN IBUPROFEN 600 MG TAB 041456 IBUPROFEN Inactive VYVANSE 40 MG CAPS 1 daily, VYVANSE 40 MG CAPS LISDEXAMFETAMINE DIMESYLATE Inactive TRAZODONE HCL 100 MG TAB take 1 at bedtime TRAZODONE HCL 100 MG TAB 676038 TRAZODONE HCL Inactive AMITRIPTYLINE HCL 100 MG TAB one at hs AMITRIPTYLINE HCL 100 MG TAB 017889 AMITRIPTYLINE HCL Inactive AMLODIPINE BESYLATE 5 MG TABS 1 tablet by mouth daily AMLODIPINE BESYLATE 5 MG TABS 601086 AMLODIPINE BESYLATE Inactive LATUDA 80 MG TABS Take one by mouth daily LATUDA 80 MG TABS LURASIDONE HCL Inactive SAPHRIS 5 MG SUBL 1 po bid SAPHRIS 5 MG SUBL ASENAPINE MALEATE Inactive CEFDINIR 300 MG CAPS by mouth twice a day CEFDINIR 300 MG CAPS 077459 CEFDINIR Inactive PREDNISONE 20 MG TAB 2 tabs daily for 3 days, 1 tab daily for 3 days, 1/2 tab daily for 2 days PREDNISONE 20 MG TAB 011929 PREDNISONE Inactive BACTRIM DS 800-160 MG TABS 1 po BID x 7 days BACTRIM DS 800-160 MG TABS 19820521 SULFAMETHOXAZOLE-TRIMETHOPRIM Inactive DIFLUCAN 150 MG TABS 1 pill every other day x 2 doses DIFLUCAN 150 MG TABS 497713 FLUCONAZOLE Inactive BACTRIM DS 800-160 MG TABS [...] % 11.6-14.8 platelet count 394 10^3/MM^3 10*3/mm3 446-598 2290/01/11 leukocyte count, blood 13.8 10^3/MM^3 10*3/mm3 4.6-10.2 [...] Panel - Chemistry sodium, serum 139 mmol/L 036-636 8410/12/03 carbon dioxide, venous blood 28.5 mmol/L 21.0-32.0 [...] 5.5 % 4.3-6.0 cholesterol, serum 159 mg/dL 008-968 7474/12/03 triglyceride, serum, fasting 118 mg/dL 30-200 HDL [...] ... - Chemistry sodium, serum 140 mmol/L 679-498 3159/05/28 potassium, serum 4.2 mmol/L 3.5-5.2 chloride, serum [...] Panel - Chemistry sodium, serum 141 mmol/L 077-911 7856 potassium, serum 4.3 mmol/L 3.5-5.2 chloride, serum 106 mmol/L 98-107 carbon dioxide, venous blood 25.7 mmol/L 21.0-32.0 blood glucose 119 mg/dL 65-110 urea nitrogen, blood 22 mg/dL 7-18 creatinine, serum 0.90 mg/dL 0.60-1.30 alanine aminotransferase (SGPT), serum 28 U/L 12-78 aspartate aminotransferase (SGOT), serum 13 U/L 15-37 calcium, serum 8.5 mg/dL 8.5-10.1 bilirubin, serum, total 0.20 mg/dL 0.00-1.00 sodium, serum 139 mmol/L 185-858 3170/12/22 carbon dioxide, venous blood 26.8 mmol/L 21.0-32.0 potassium, serum 4.2 mmol/L 3.5-5.2 chloride, serum 103 mmol/L 98-107 blood glucose 115 mg/dL 65-110 urea nitrogen, blood 20 mg/dL 7-18 creatinine, serum 0.90 mg/dL 0.55-1.30 alanine aminotransferase (SGPT), serum 38 U/L -78 aspartate aminotransferase (SGOT), serum 19 U/L 15-37 calcium, serum 8.6 mg/dL 8.5-10.1 bilirubin, serum, total 0.30 mg/dL 0.00-1.00 sodium, serum 139 mmol/L 307-415 2001/01/11 carbon dioxide, venous blood 26.6 mmol/L 21.0-32.0 [...] Rate - Chemistry sodium, serum 139 mmol/L 744-476 9421/12/11 carbon dioxide, venous blood 25.4 mmol/L 21.0-32.0 [...] 5.5 5.0-8.5 Lab Report: UADIP W/MICRO, [place]O, [facility] [place] Chemistry protein, total urine random Negative mg/dL Negative RBC, urine, dipstick Negative Negative human chorionic gonadotropin, urine, qualitative (urine test) Negative Negative Lab Report: UADIP W/MICRO, AUTO, [facility] [place] Urinalysis urobilinogen, urine, semiquantitative (dipstick) 0.2 Normal leukocyte esterase, urine, by dipstick Negative Negative nitrite, urine, semiquantitative Negative Negative glucose, urine, semiquantitative Negative Negative ketones, urine, by test strip Negative Negative bilirubin, urine Negative Negative urine color Yellow Colorless;Lightyellow;Straw;Yellow appearance, urine Clear Clear specific gravity, urine 1.025 1.000-1.030 pH, urine, semiquantitative 7.0 5.0-8.5 Lab Report: Varicella-Zoater Inga IgG,IgM/35975, HEP Be Antibody/556, RUB ... - Serology rubella antibody, serum, IgG 2.88 Encounters Code Encounter Date Provider Facility CPT-10875 Level 4 Est. Patient 09:00:51 PYROMETER OPERATOR Vishal Hui MD [facility] CPT-07032 Level 3 Est. Patient 11:37:33 PYROMETER OPERATOR Vishal Hui MD [facility] CPT-56616 Level 3 Est. Patient 08:41:09 PYROMETER OPERATOR Vishal Hui MD [facility] CPT-14501 Level 4 Est. Patient 10:19:35 PYROMETER OPERATOR Vishal Hui MD [facility] CPT-87346 Level 3 Est. Patient 13:35:45 CDT Vishal Hui MD [facility] [place]-67838 Level 4 Est. Patient 10:08:37 CDT Vishal Hui MD [facility] [place]-65525 Level 3 Est. Patient 11:22:10 CDT Vishal Hui MD [facility] [place]-55277 Level 3 Est. Patient 11:03:32 CDT Sahara Rodriguez MD [facility]-10169 Level 3 Est. Patient 09:41:35 CDT Vishal Hui MD [facility]-26073 Level 3 Est. Patient 12:00:41 CDT Neeraj Collins MD [facility] [place]-84408 Level 3 Est. Patient 09:16:24 CDT Vishal Hui MD [facility] [place]-51425 Level 4 Est. Patient 13:59:09 CDT Neeraj Collins MD [facility] [place]-81753 Level 3 Est. Patient 15:19:43 CDT Renzo Thornton DO [facility] [place]-02381 Level 3 Est. Patient 18:10:26 CDT Sahara Rodriguez MD [facility]-99936 Level 3 Est. Patient 14:49:50 CDT Vishal Hui MD [facility] [place]-43220 Level 4 Est. Patient 18:41:46 CDT Neeraj Collins MD [facility] [place]-90967 Level 4 Est. Patient 09:18:38 PYROMETER OPERATOR Vishal Hui MD [facility]-94194 Level 3 Est. Patient 14:43:55 PYROMETER OPERATOR Vishal Hui MD [facility] [place]-95436 Level 3 Est. Patient 15:26:33 PYROMETER OPERATOR Sahara Rodriguez MD PhD [facility] CPT-41072 Level 3 Est. Patient 10:32:14 PYROMETER OPERATOR Vishal Hui MD [facility] CPT-69890 Level 3 Est. Patient 15:12:52 PYROMETER OPERATOR Vishal Hui MD [facility] CPT-90531 Level 4 Est. Patient 09:19:27 CDT Vishal Hui MD [facility] CPT-39224 Level 3 Est. Patient 15:53:00 CDT Ren[facility] Thornton [facility] CPT-56090 Level 3 Est. Patient 15:50:30 CDT Renzo Thornton [facility] CPT-27714 Level 3 Est. Patient 16:55:24 CDT Vishal Hui MD [facility] Procedures Code Procedure Name Date Entry Date Standard Description CPT-G0438 Initial Annual Wellness Exam 19:01:01 PYROMETER OPERATOR CPT-J3420 Vitamin B12 1000mcg (Cyanocobalamin) 16:57:46 CDT 08/14 CPT-69237 Recombivax HB Injection Suspension 5 MCG/0.5ML 08:37:50 PYROMETER OPERATOR CPT-69498 Immunization Single Admin 08:37:50 PYROMETER OPERATOR CPT-J3420 Vitamin B12 1000mcg (Cyanocobalamin) 08:32:16 PYROMETER OPERATOR 03/11 CPT-26871 Abx/Therapy Injection 08:32:16 PYROMETER OPERATOR CPT-13383 Chest 2V Frontal and Lat 11:46:38 PYROMETER OPERATOR CPT-55415 Venipuncture Draw Fee 09:12:45 PYROMETER OPERATOR CPT-J3420 Vitamin B12 1000mcg (Cyanocobalamin) 08:50:15 PYROMETER OPERATOR 02/08 CPT-56915 Abx/Therapy Injection 08:50:15 PYROMETER OPERATOR CPT-Cryo Cryotherapy 10:19:35 PYROMETER OPERATOR CPT-000 Give Appropriate Flu Vaccine 09:22:16 CDT CPT-J3420 Vitamin B12 1000mcg (Cyanocobalamin) 19:08:57 CDT 01/11 CPT-83390 Abx/Therapy Injection 19:08:57 CDT CPT-J3420 Vitamin B12 1000mcg (Cyanocobalamin) 08:19:08 CDT 12/11 CPT-99101 Abx/Therapy Injection 08:19:08 CDT CPT-J3420 Vitamin B12 1000mcg (Cyanocobalamin) 14:48:00 CDT 11/09 CPT-04005 Abx/Therapy Injection 14:47:59 CDT CPT-J3420 Vitamin B12 1000mcg (Cyanocobalamin) 08:34:04 CDT 10/09 CPT-97013 Abx/Therapy Injection 08:34:04 CDT CPT-J3420 Vitamin B12 1000mcg (Cyanocobalamin) 09:18:52 CDT 09/11 CPT-63714 Abx/Therapy Injection 09:18:52 CDT CPT-J3420 Vitamin B12 1000mcg (Cyanocobalamin) 08:35:44 CDT 09/04 CPT-83959 Abx/Therapy Injection 08:35:44 CDT CPT-47845 Immunization Single Admin 11:07:16 CDT CPT-49156 Hepatitis B adult IM 11:07:16 CDT CPT-J3420 Vitamin B12 1000mcg (Cyanocobalamin) 11:00:49 CDT 08/28 CPT-J1040 Depo Medrol 80 mg (Methyl Prednisolone Acetate) 11:00: 49 CDT CPT-56533 Abx/Therapy Injection 11:00:49 CDT CPT-J1040 Depo Medrol 80 mg (Methyl Prednisolone Acetate) 09:16: 23 CDT CPT-J3420 Vitamin B12 1000mcg (Cyanocobalamin) 08:27:05 CDT 08/20 CPT-78291 Abx/Therapy Injection 08:27:05 CDT CPT-90977 Recombivax HB Injection Suspension 5 MCG/0.5ML 10:00:41 CDT CPT-04397 Administration single or combination vaccine inc oral 10 :00:41 CDT CPT-78053 Sono transvag pelvis non OB uterus ovaries cervix 16:36: 57 CDT CPT-69138 LS spine comp w obliq 09:50:55 PYROMETER OPERATOR CPT-79107 Abd compl w upright 09:50:55 PYROMETER OPERATOR CPT-J1100 Decadron 4mg (Dexamethasone) 15:51:24 PYROMETER OPERATOR CPT-J1030 Depo Medrol 40 mg (Methyl Prednisolone Acetate) 15:51: 24 PYROMETER OPERATOR CPT-23172 Abx/Therapy Injection 15:51:24 PYROMETER OPERATOR CPT-J1100 Decadron 4mg (Dexamethasone) 15:26:33 PYROMETER OPERATOR CPT-J1030 Depo Medrol 40 mg (Methyl Prednisolone Acetate) 15:26: 33 PYROMETER OPERATOR CPT-83569 Sono retroperitoneal complete kidneys and bladder 17:15: 30 CDT CPT-54682 Abd compl w upright 16:09:25 CDT CPT-J1100 Decadron 8mg (Dexamethasone) 17:07:57 CDT CPT-28923 Abx/Therapy Injection 17:07:57 CDT CPT-J1100 Decadron 8mg (Dexamethasone) 16:55:24 CDT CPT-93597 Chest 2V Frontal and Lat 16:32:44 CDT
--- OUTSIDE RECORDS SUMMARY | 2016-11-04 21:25 | XMS REPORT | Clinical Summary ---
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 V72.31 Active Suzan Boo [...] MD Health screening ICD-V70.0 Inactive Suzan Boo PRINCIPAL PROGRAMMER Sinus tachycardia ICD-427.89 Inactive Suzan Boo PRINCIPAL PROGRAMMER Smoker/tobacco use disorder-smoking cessation discussed ICD-305.1 Inactive [...] SOLN 30mL oral daily for IBS-C LACTULOSE 89423112259 Active Suzan Boo APRN Active TESSALON PERLES 100 MG CAPS 1 three times a day as needed for cough BENZONATATE 04844094719 No Longer Active Suzan Boo APRN Active BACTRIM DS 800-160 MG TABS 1 twice a day SULFAMETHOXAZOLE-TRIMETHOPRIM 61505811599 No Longer Active Suzan Boo APRN Active DIFLUCAN 150 MG TABS 1 by mouth for yeast FLUCONAZOLE 64407862256 No Longer Active Suzan Boo APRN Active EQ NICOTINE 21 MG/24HR TRANS PT24 Apply daily to stop smoking NICOTINE 93647089667 No Longer Active Suzan Boo APRN Active PREDNISONE 10 MG TABS 2 daily for 5 days then 1 daily for 5 days PREDNISONE 40731780041 No Longer Active Suzan Boo APRN Active LEVAQUIN 500 MG TABS 1 daily for infection LEVOFLOXACIN 77461984626 No Longer Active Suzan Boo APRN Active TROPICAMIDE 0.5 % OPHTH SOLN 1 drop PRN eye spasms TROPICAMIDE 09018653663 No Longer Active Suzan Boo APRN Active PREDNISONE 20 MG TAB 1 tablet daily x 4 days PREDNISONE 91293848324 No Longer Active Suzan Boo APRN Active ACETAMINOPHEN-CODEINE 120-12 MG/5ML SOLN 5 ml by mouth every 4-6 hours if needed for cough ACETAMINOPHEN-CODEINE 72554130222 No Longer Active Suzan Boo APRN Active KEFLEX 500 MG CAP 1 po qid CEPHALEXIN 31017461099 No Longer Active Suzan Boo APRN Active FLOVENT HFA 110 MCG/ACT AERO 2 puffs inhaled b.i.d. FLUTICASONE PROPIONATE HFA 50065235026 Active Renzo Thornton DO Active RISPERDAL 4 MG ORAL TABS 1 tab at bedtime RISPERIDONE 04597315254 Active Samantha Rothman RMA Active ZOFRAN 4 MG TABS 1 po q6hr PRN Nausea ONDANSETRON HCL No Longer Active Suzan Boo APRN Active FLUTICASONE PROPIONATE 50 MCG/ACT SUSP 2 sprays each nostril daily before bed. FLUTICASONE PROPIONATE 82175474256 No Longer Active Suzan Boo APRN Active ASPIRIN 325 MG ORAL TABS 1 tab q.d ASPIRIN 43729252126 No Longer Active Suzan Boo APRN Active HALOPERIDOL 10 MG ORAL TABS 1 tab q.d HALOPERIDOL 65350444447 No Longer Active Suzan Boo APRN Active GUAIFENESIN-CODEINE 100-10 MG/5ML SYRP 5ml every 4 to 6 hours as needed for cough GUAIFENESIN-CODEINE 75770248971 No Longer Active Suzan Boo APRN Active ZITHROMAX Z-EARNEST 250 MG TABS 2 today and then 1 daily for 4 days AZITHROMYCIN 25226415713 No Longer Active Suzan Boo APRN Active CLONAZEPAM 1 MG ORAL TABS 1 twice a day and an additional 1 tablet every other day as needed for pseudoseizures or anxiety CLONAZEPAM 75548928693 Active Ahmet Carbajal MD Active HYDROCODONE-ACETAMINOPHEN 5-325 MG ORAL TABS 1 tab two times a day HYDROCODONE-ACETAMINOPHEN 40526203832 No Longer Active Ahmet Carbajal MD Active LAMICTAL 100 MG ORAL TABS 1 tab 2 times qd. LAMOTRIGINE 97499217916 Active Ahmet Carbajal MD Active PREDNISONE 20 MG TABS 2 daily for 5 days then 1 daily for 5 days PREDNISONE 93768527804 No Longer Active Ahmet Carbajal MD Active FLUTICASONE PROPIONATE 50 MCG/ACT SUSP 1 to 2 sprays each nostril daily for allergies FLUTICASONE PROPIONATE 82245325935 Active Tila Valenzuela Active BENADRYL 25 MG CAP 4 po at bedtime for insomnia DIPHENHYDRAMINE HCL 17863662633 No Longer Active Ahmet Carbajal MD Active ADVAIR DISKUS 250-50 MCG/DOSE INH AEPB 1 puff twice a day for asthma FLUTICASONE-SALMETEROL 06494728203 No Longer Active Ahmet Carbajal MD Active KLONOPIN 1 MG ORAL TABS 1 tab po TID CLONAZEPAM 89506044183 No Longer Active Ahmet Carbajal MD Active ABILIFY MAINTENA 400 MG IM SUSR 400mg injection every 26 days ARIPIPRAZOLE 96201185302 No Longer Active Ahmet Carbajal MD Active TRAMADOL HCL 50 MG TABS 1/2-1 tab TID PRN TRAMADOL HCL 62933948707 No Longer Active Ahmet Carbajal MD Active BACTRIM DS 800-160 MG TABS 1 twice a day SULFAMETHOXAZOLE- TRIMETHOPRIM 26417928994 No Longer Active Ahmet Carbajal MD Active PROAIR HFA 108 (90 BASE) MCG/ACT AERS 2 puffs four times a day as needed 2015 ALBUTEROL SULFATE 80000983428 Active Ahmet Carbajal MD Active MONISTAT 7 COMBO PACK WOODROW 100 & 2 MG-% (9GM) VAG KIT 1 applicatorful per vagina q pm x 7 MICONAZOLE NITRATE 54615240300 No Longer Active Ahmet Carbajal MD Active FLAGYL 500 MG TAB 1 tablet by mouth bid METRONIDAZOLE 82368771786 No Longer Active Ahmet Carbajal MD Active OXYCODONE HCL ER 10 MG ORAL T12A 1/2 tab by mouth every 4 hours prn OXYCODONE HCL 50983205062 No Longer Active Ahmet Carbajal MD Active METHYLPREDNISOLONE 4 MG ORAL TABS po daily METHYLPREDNISOLONE 15480661952 No Longer Active Ahmet Carbajal MD Active LEVOFLOXACIN 500 MG ORAL TABS po daily LEVOFLOXACIN 74345548450 No Longer Active Ahmet Carbajal MD Active VIIBRYD 10 MG ORAL TABS Take 1 tablet once a day VILAZODONE HCL 92040584576 No Longer Active Ahmet Carbajal MD Active TOPAMAX 50 MG ORAL TABS 1 tab twice daily TOPIRAMATE 84521030384 No Longer Active Ahmet Carbajal MD Active DICLOFENAC SODIUM 50 MG TBEC 1 tablet by mouth four times daily PRN Pain 2015 DICLOFENAC SODIUM 86964546100 No Longer Active Ahmet Carbajal MD Active ADZENYS XR-ODT 6.3 MG ORAL TBED 1 tab po daily for ADHD AMPHETAMINE 84627659627 No Longer Active Ahmet Carbajal MD Active CHANTIX 1 MG TABS 1 twice a day to help quit smoking VARENICLINE TARTRATE 58735416565 No Longer Active Dipika Burgos MD Active CHANTIX STARTING MONTH EARNEST 0.5 MG X 11 & 1 MG X 42 TABS take as directed 2015 VARENICLINE TARTRATE 45102799651 No Longer Active Dipika Burgos MD Active TESSALON PERLES 100 MG CAP 1 to 2 tablets by mouth 3 times daily as needed for cough BENZONATATE 35699283565 No Longer Active Luigi Martínez APRN Active IMITREX 50 MG ORAL TABS 0.5 po x 1 PRN Headache. May repeat dose x 1 in 2 hours if needed SUMATRIPTAN SUCCINATE 44742045771 Active Ahmet Carbajal MD Active HYDROCODONE-ACETAMINOPHEN 5-325 MG TABS 1 to 2 four times a day as needed for pain use until can be seen by specialist HYDROCODONE- ACETAMINOPHEN 53326976178 No Longer Active Vishal Hui MD Active PROAIR HFA 108 (90 BASE) MCG/ACT AERS 2 puffs four times a day as needed 2015 ALBUTEROL SULFATE 76289337092 No Longer Active Vishal Hui MD Active PREDNISONE 20 MG TABS 2 daily for 5 days then 1 daily for 5 days PREDNISONE 87425791145 No Longer Active Vishal Hui MD Active ZITHROMAX Z-EARNEST 250 MG TABS 2 today and then 1 daily for 4 days AZITHROMYCIN 23527884456 No Longer Active Vishal Hui MD Active DICLOFENAC POTASSIUM TABS Take 1 tablet twice a day (pt. is not sure of the dose.) DICLOFENAC POTASSIUM TABS 96990647087 No Longer Active Vishal Hui MD Active VERAPAMIL HCL ER 120 MG ORAL CR-TABS Take 1 tablet by mouth twice a day. VERAPAMIL HCL 97697664203 Active Vishal Hui MD Active FLAGYL 500 MG TAB 1 tablet by mouth bid METRONIDAZOLE 48927763351 No Longer Active Vishal Hui MD Active VALIUM 5 MG TAB Take 1-2 tablets daily DIAZEPAM 28157715332 No Longer Active Fabiola Johnson APRN Active METOPROLOL TARTRATE 25 MG ORAL TABS 1/2 tablet twice daily for heart rate and blood pressure METOPROLOL TARTRATE 00864596179 No Longer Active Fabiola Johnson APRN Active MIRALAX ORAL POWD 17GMS DAILY IN WATER POLYETHYLENE GLYCOL 3350 28050880344 Active TAMARA Casey Active MIRALAX PACK 1 po qd PRN Constipation POLYETHYLENE GLYCOL 3350 34405399482 No Longer Active Ahmet Carbajal MD Active MINIPRESS 2 MG CAPS 4 cap po at night PRAZOSIN HCL 51916909471 No Longer Active Ahmet Carbajal MD Active PIROXICAM 20 MG CAPS 1 cap po qd PRN Pain PIROXICAM 26312825133 No Longer Active Ahmet Carbajal MD Active TRAMADOL HCL 50 MG TABS 1-2 po TID PRN Pain TRAMADOL HCL 59718495875 No Longer Active Ahmet Carbajal MD Active METOPROLOL TARTRATE 50 MG TAB 1 po bid METOPROLOL TARTRATE 48072509353 No Longer Active Ahmet Carbajal MD Active ABILIFY 15 MG ORAL TABS 1 tab daily ARIPIPRAZOLE 92964713030 No Longer Active Ahmet Carbajal MD Active PROZAC 20 MG ORAL CAPS 1 tab daily FLUOXETINE HCL 00467727223 No Longer Active Ahmet Carbajal MD Active AMBIEN 5 MG ORAL TABS 1 tab at bedtime ZOLPIDEM TARTRATE 64645278896 No Longer Active Ahmet Carbajal MD Active PREDNISONE 20 MG TAB 2 tabs daily for 4 days, 1 tab daily for 4 days, 1/2 tab daily for 4 days PREDNISONE 93656115809 No Longer Active Ahmet Carbajal MD Active KEFLEX 500 MG CAP 1 po TID x 10 days CEPHALEXIN 15969107928 No Longer Active Vishal Hui MD Active SAPHRIS 5 MG SUBL 1 po bid ASENAPINE MALEATE 61370944879 No Longer Active Jillina Fralebron PRINCIPAL PROGRAMMER Active LATUDA 80 MG TABS Take one by mouth daily LURASIDONE HCL 15783502397 No Longer Active Jillina Frazell PRINCIPAL PROGRAMMER Active AMLODIPINE BESYLATE 5 MG TABS 1 tablet by mouth daily AMLODIPINE BESYLATE 04285499836 No Longer Active Jillina Mauricio PRINCIPAL PROGRAMMER Active AMITRIPTYLINE HCL 100 MG TAB one at hs AMITRIPTYLINE HCL 75391006021 No Longer Active Vishal Hui MD Active TRAZODONE HCL 100 MG TAB take 1 at bedtime TRAZODONE HCL 36043292488 No Longer Active Vishal Hui MD Active VYVANSE 40 MG CAPS 1 daily, LISDEXAMFETAMINE DIMESYLATE 20831224348 No Longer Active Vishal Hui MD Active IBUPROFEN 600 MG TAB 1 po TID PRN IBUPROFEN 96150259927 No Longer Active Vishal Hui MD Active PROZAC 20 MG CAP Take one by mouth daily FLUOXETINE HCL 51118631678 No Longer Active Vishal Hui MD Active BACTRIM DS 800-160 MG TABS 1 pill by mouth twice daily SULFAMETHOXAZOLE-TRIMETHOPRIM 86495667890 No Longer Active Sahara Rodriguez MD PhD Active DIFLUCAN 150 MG TAB 1 tablet by mouth daily FLUCONAZOLE 11601701907 No Longer Active Vishal Hui MD Active TIZANIDINE HCL 4 MG TABS 1 po q6hr PRN Muscle Spasm/Back Pain TIZANIDINE HCL 52393238635 Active Vishal Hui MD Active CLINDAMYCIN HCL 150 MG CAPS 1 four times a day CLINDAMYCIN HCL 58176727597 No Longer Active Neeraj Collins MD Active KEFLEX 500 MG ORAL CAPS 1 cap QID by mouth CEPHALEXIN 73328303729 No Longer Active Neeraj Collins MD Active DIFLUCAN 150 MG TABS 1 pill every other day x 2 doses FLUCONAZOLE 45268827742 No Longer Active Sahara Rodriguez MD PhD Active MELATONIN 3 MG CAPS 2 po q hs MELATONIN 32131372782 No Longer Active Sahara Rodriguez MD PhD Active MULTIVITAMINS CAPS Take one by mouth daily MULTIPLE VITAMIN 23944431363 No Longer Active Sahara Rodriguez MD PhD Active BACTRIM DS 800-160 MG TAB 1 tab by mouth twice daily TRIMETHOPRIM-SULFAMETHOXAZOLE 74490606347 No Longer Active Sahara Rodriguez MD PhD Active [facility] PROBIOTIC ORAL CHEW 2 daily po PROBIOTIC PRODUCT 86160074169 No Longer Active Sahara Rodriguez MD PhD Active BACTRIM DS 800-160 MG TABS 1 po BID x 7 days SULFAMETHOXAZOLE-TRIMETHOPRIM 34900281773 No Longer Active Vishal Hui MD Active CHANTIX STARTING MONTH EARNEST 0.5 MG X 11 & 1 MG X 42 TABS 0.5mg daily for 3 days , then 0.5mg BID for 4 days, then 1mg BID VARENICLINE TARTRATE 13027953470 No Longer Active TAMARA Gray Active VERAPAMIL HCL CR 120 MG TAB CR 1 po bid VERAPAMIL HCL 18910334163 No Longer Active Vishal Hui MD Active METOPROLOL SUCCINATE 50 MG TB24 1 tablet by mouth daily METOPROLOL SUCCINATE 14440866935 No Longer Active Vishal Hui MD Active SAPHRIS 10 MG SUBL 1 tab po bid ASENAPINE MALEATE 42812890310 No Longer Active Vishal Hui MD Active LISINOPRIL 20 MG TABS 1 tab po qd LISINOPRIL 33694020168 No Longer Active Vishal Hui MD Active LATUDA 20 MG TABS Take one by mouth daily LURASIDONE HCL 60356766969 No Longer Active Vishal Hui MD Active TRAZODONE HCL 50 MG TABS 1/2 tab po qd prn for anxiety TRAZODONE HCL 31031087991 No Longer Active Vishal Hui MD Active OMEPRAZOLE 20 MG TBEC 1 po q a.m. 30min prior to first food intake OMEPRAZOLE 56508722021 Active TAMARA Casey Active RANITIDINE HCL 150 MG CAPS 1 twice a day RANITIDINE HCL 07823738767 Active Jillina Frazell PRINCIPAL PROGRAMMER Active LINZESS 290 MCG CAPS Take one by mouth daily LINACLOTIDE 94408203742 No Longer Active Vishal Hui MD Active SAPHRIS 5 MG SUBL 1 tab po qd ASENAPINE MALEATE 57309044058 No Longer Active Vishal Hui MD Active ZALEPLON 10 MG CAPS 1 cap po every other night ZALEPLON 63683091019 No Longer Active Vishal Hui MD Active LYRICA 50 MG CAPS 1 tab po TID PREGABALIN 21476205533 No Longer Active Vishal Hui MD Active LORATADINE 10 MG TABS 1 tab po qd LORATADINE 37280427712 No Longer Active Vishal Hui MD Active VERAPAMIL HCL ER 180 MG CR-TABS 1 tab po bid VERAPAMIL HCL 98209775526 No Longer Active Vishal Hui MD Active MIRALAX POWD 1 capfull once daily POLYETHYLENE GLYCOL 3350 73504017138 No Longer Active Vishal Hui MD Active PREDNISONE 20 MG TABS 1 tab po qd PREDNISONE 88922105300 No Longer Active Renzo Thornton DO Active LEVOFLOXACIN 500 MG TABS 1 tab po qd LEVOFLOXACIN 95618584161 No Longer Active Renzo Thornton DO Active BUSPIRONE HCL 15 MG TABS 1 tab po TID BUSPIRONE HCL 47949826884 No Longer Active Renzo Thornton DO Active BENZTROPINE MESYLATE 1 MG TABS 1 tab po qd BENZTROPINE MESYLATE 73713196322 No Longer Active Renzo Thornton DO Active ATENOLOL 25 MG TABS 1 tab po qd ATENOLOL 49234535763 No Longer Active Renzo Thornton DO Active ESCITALOPRAM OXALATE 20 MG TABS 1 tab po qd ESCITALOPRAM OXALATE 04872532499 No Longer Active Renzo Thornton DO Active ADVAIR DISKUS 250-50 MCG/DOSE AEPB 1 puff BID FLUTICASONE-SALMETEROL 18840556643 No Longer Active Renzo Thornton DO Active PREDNISONE 20 MG TAB 2 tabs daily for 3 days, 1 tab daily for 3 days, 1/2 tab daily for 2 days PREDNISONE 68633337956 No Longer Active Vishal Hui MD Active CEFDINIR 300 MG CAPS by mouth twice a day CEFDINIR 19427390891 No Longer Active Vishal Hui MD Active LANSOPRAZOLE 30 MG CPDR 1 cap po qd LANSOPRAZOLE 18836421298 No Longer Active Vishal Hui MD Active BACLOFEN 20 MG TABS 1 tab po tid BACLOFEN 51180951194 No Longer Active Vishal Hui MD Active ADVAIR DISKUS 250-50 MCG/DOSE AEPB 1 puff BID ADVAIR DISKUS 250-50 MCG/DOSE AEPB FLUTICASONE-SALMETEROL Inactive ESCITALOPRAM OXALATE 20 MG TABS 1 tab po qd ESCITALOPRAM OXALATE 20 MG TABS 380787 ESCITALOPRAM OXALATE Inactive ATENOLOL 25 MG TABS 1 tab po qd ATENOLOL 25 MG TABS 475176 ATENOLOL Inactive BENZTROPINE MESYLATE 1 MG TABS 1 tab po qd BENZTROPINE MESYLATE 1 MG TABS 238313 BENZTROPINE MESYLATE Inactive BUSPIRONE HCL 15 MG TABS 1 tab po TID BUSPIRONE HCL 15 MG TABS 597287 BUSPIRONE HCL Inactive LEVOFLOXACIN 500 MG TABS 1 tab po qd LEVOFLOXACIN 500 MG TABS 139080 LEVOFLOXACIN Inactive PREDNISONE 20 MG TABS 1 tab po qd PREDNISONE 20 MG TABS 549250 PREDNISONE Inactive MIRALAX POWD 1 capfull once daily MIRALAX POWD 483461 POLYETHYLENE GLYCOL 3350 Inactive VERAPAMIL HCL ER 180 MG CR-TABS 1 tab po bid VERAPAMIL HCL ER 180 MG CR-TABS VERAPAMIL HCL Inactive LORATADINE 10 MG TABS 1 tab po qd LORATADINE 10 MG TABS 848686 LORATADINE Inactive LYRICA 50 MG CAPS 1 tab po TID LYRICA 50 MG CAPS PREGABALIN Inactive ZALEPLON 10 MG CAPS 1 cap po every other night ZALEPLON 10 MG CAPS 780238 ZALEPLON Inactive SAPHRIS 5 MG SUBL 1 tab po qd SAPHRIS 5 MG SUBL ASENAPINE MALEATE Inactive TRAZODONE HCL 50 MG TABS 1/2 tab po qd prn for anxiety TRAZODONE HCL 50 MG TABS 489306 TRAZODONE HCL Inactive LATUDA 20 MG TABS Take one by mouth daily LATUDA 20 MG TABS LURASIDONE HCL Inactive LISINOPRIL 20 MG TABS 1 tab po qd LISINOPRIL 20 MG TABS 555473 LISINOPRIL Inactive SAPHRIS 10 MG SUBL 1 [...] twice daily BACTRIM DS 800-160 MG TAB 478885 TRIMETHOPRIM-SULFAMETHOXAZOLE Inactive MULTIVITAMINS CAPS Take one by mouth daily MULTIVITAMINS CAPS MULTIPLE VITAMIN Inactive MELATONIN 3 MG CAPS 2 po q hs MELATONIN 3 MG CAPS 203446 MELATONIN Inactive KEFLEX 500 MG ORAL CAPS 1 cap QID by mouth KEFLEX 500 MG ORAL CAPS 263180 CEPHALEXIN Inactive CLINDAMYCIN HCL 150 MG CAPS 1 four times a day CLINDAMYCIN HCL 150 MG CAPS 054509 CLINDAMYCIN HCL Inactive DIFLUCAN 150 MG TAB 1 tablet by mouth daily DIFLUCAN 150 MG TAB 632000 FLUCONAZOLE Inactive PROZAC 20 MG CAP Take one by mouth daily PROZAC 20 MG CAP 703176 FLUOXETINE HCL Inactive IBUPROFEN 600 MG TAB 1 po TID PRN IBUPROFEN 600 MG TAB 907912 IBUPROFEN Inactive VYVANSE 40 MG CAPS 1 daily, VYVANSE 40 MG CAPS LISDEXAMFETAMINE DIMESYLATE Inactive TRAZODONE HCL 100 MG TAB take 1 at bedtime TRAZODONE HCL 100 MG TAB 362620 TRAZODONE HCL Inactive AMITRIPTYLINE HCL 100 MG TAB one at hs AMITRIPTYLINE HCL 100 MG TAB 219330 AMITRIPTYLINE HCL Inactive AMLODIPINE BESYLATE 5 MG TABS 1 tablet by mouth daily AMLODIPINE BESYLATE 5 MG TABS 073789 AMLODIPINE BESYLATE Inactive LATUDA 80 MG TABS Take one by mouth daily LATUDA 80 MG TABS LURASIDONE HCL Inactive SAPHRIS 5 MG SUBL 1 po bid SAPHRIS 5 MG SUBL ASENAPINE MALEATE Inactive PREDNISONE 20 MG TAB 2 tabs daily for 4 days, 1 tab daily for 4 days, 1/2 tab daily for 4 days PREDNISONE 20 MG TAB 477446 PREDNISONE Inactive AMBIEN 5 MG ORAL TABS 1 tab at bedtime AMBIEN 5 MG ORAL TABS 231696 ZOLPIDEM TARTRATE Inactive PROZAC 20 MG ORAL CAPS 1 tab daily PROZAC 20 MG ORAL CAPS 143851 FLUOXETINE HCL Inactive ABILIFY 15 MG ORAL TABS 1 tab daily ABILIFY 15 MG ORAL TABS 632894 ARIPIPRAZOLE Inactive METOPROLOL TARTRATE 50 MG TAB 1 po bid METOPROLOL TARTRATE 50 MG TAB 122354 METOPROLOL TARTRATE Inactive TRAMADOL HCL 50 MG TABS 1-2 po TID PRN Pain TRAMADOL HCL 50 MG TABS 256819 TRAMADOL HCL Inactive PIROXICAM 20 MG CAPS 1 cap po qd PRN Pain PIROXICAM 20 MG CAPS 734765 PIROXICAM Inactive MINIPRESS 2 MG CAPS 4 cap po at night MINIPRESS 2 MG CAPS 081670 PRAZOSIN HCL Inactive MIRALAX PACK 1 po qd PRN Constipation MIRALAX PACK 179241 POLYETHYLENE GLYCOL 3350 Inactive METOPROLOL TARTRATE 25 MG ORAL TABS 1/2 tablet twice daily for heart rate and blood pressure METOPROLOL TARTRATE 25 MG ORAL TABS 247417 METOPROLOL TARTRATE Inactive VALIUM 5 MG TAB Take 1-2 tablets daily VALIUM 5 MG TAB 878962 DIAZEPAM Inactive FLAGYL 500 MG TAB 1 tablet by mouth bid FLAGYL 500 MG TAB 375327 METRONIDAZOLE Inactive DICLOFENAC POTASSIUM TABS Take 1 tablet twice a day (pt. is not sure of the dose.) DICLOFENAC POTASSIUM TABS DICLOFENAC POTASSIUM TABS Inactive ZITHROMAX Z-EARNEST 250 MG TABS 2 today and then 1 daily for 4 days ZITHROMAX Z-EARNEST 250 MG TABS 1200022 AZITHROMYCIN Inactive PREDNISONE 20 MG TABS 2 daily for 5 days then 1 daily for 5 days PREDNISONE 20 MG TABS 795416 PREDNISONE Inactive PROAIR HFA 108 (90 BASE) MCG/ACT AERS 2 puffs four times a day as needed 2015 PROAIR HFA 108 (90 BASE) MCG/ACT AERS ALBUTEROL SULFATE Inactive HYDROCODONE-ACETAMINOPHEN 5-325 MG TABS 1 to 2 four times a day as needed for pain use until can be seen by specialist HYDROCODONE- ACETAMINOPHEN 5-325 MG TABS 865218 HYDROCODONE-ACETAMINOPHEN Inactive TESSALON PERLES 100 MG CAP 1 to 2 tablets by mouth 3 times daily as needed for cough TESSALON PERLES 100 MG CAP 351298 BENZONATATE Inactive CHANTIX STARTING MONTH EARNEST 0.5 [...] Pain 2015 DICLOFENAC SODIUM 50 MG TBEC 226425 DICLOFENAC SODIUM Inactive TOPAMAX 50 MG ORAL TABS 1 tab twice daily TOPAMAX 50 MG ORAL TABS 763117 TOPIRAMATE Inactive VIIBRYD 10 MG ORAL TABS Take 1 tablet once a day VIIBRYD 10 MG ORAL TABS VILAZODONE HCL Inactive LEVOFLOXACIN 500 MG ORAL TABS po daily LEVOFLOXACIN 500 MG ORAL TABS 242102 LEVOFLOXACIN Inactive METHYLPREDNISOLONE 4 MG ORAL TABS po daily METHYLPREDNISOLONE 4 MG ORAL TABS 681833 METHYLPREDNISOLONE Inactive OXYCODONE HCL ER 10 MG ORAL T12A 1/2 tab by mouth every 4 hours prn OXYCODONE HCL ER 10 MG ORAL T12A OXYCODONE HCL Inactive FLAGYL 500 MG TAB 1 tablet by mouth bid FLAGYL 500 MG TAB 852244 METRONIDAZOLE Inactive MONISTAT 7 COMBO PACK WOODROW 100 & 2 MG-% (9GM) VAG KIT 1 applicatorful per vagina q pm x 7 MONISTAT 7 COMBO PACK WOODROW 100 & 2 MG-% (9GM) VAG KIT MICONAZOLE NITRATE Inactive BACTRIM DS 800-160 MG TABS 1 twice a day BACTRIM DS 800-160 MG TABS 101419 SULFAMETHOXAZOLE-TRIMETHOPRIM Inactive TRAMADOL HCL 50 MG TABS 1/2-1 tab TID PRN TRAMADOL HCL 50 MG TABS 893036 TRAMADOL HCL Inactive ABILIFY MAINTENA 400 MG IM SUSR 400mg injection every 26 days ABILIFY MAINTENA 400 MG IM SUSR ARIPIPRAZOLE Inactive KLONOPIN 1 MG ORAL TABS 1 tab po TID KLONOPIN 1 MG ORAL TABS 001650 CLONAZEPAM Inactive ADVAIR DISKUS 250-50 MCG/DOSE INH AEPB 1 puff twice a day for asthma ADVAIR DISKUS 250-50 MCG/DOSE INH AEPB FLUTICASONE- SALMETEROL Inactive BENADRYL 25 MG CAP 4 po at bedtime for insomnia BENADRYL 25 MG CAP DIPHENHYDRAMINE HCL Inactive PREDNISONE 20 MG TABS 2 daily for 5 days then 1 daily for 5 days PREDNISONE 20 MG TABS 381409 PREDNISONE Inactive HYDROCODONE-ACETAMINOPHEN 5-325 MG ORAL TABS 1 tab two times a day HYDROCODONE-ACETAMINOPHEN 5-325 MG ORAL TABS 580517 HYDROCODONE-ACETAMINOPHEN Inactive ZITHROMAX Z-EARNEST 250 MG TABS 2 today and then 1 daily for 4 days ZITHROMAX Z-EARNEST 250 MG TABS 9852896 AZITHROMYCIN Inactive GUAIFENESIN-CODEINE 100-10 MG/5ML SYRP 5ml every 4 to 6 hours as needed for cough GUAIFENESIN-CODEINE 100-10 MG/5ML SYRP 522073 GUAIFENESIN-CODEINE Inactive HALOPERIDOL 10 MG ORAL TABS 1 tab q.d HALOPERIDOL 10 MG ORAL TABS 318399 HALOPERIDOL Inactive ASPIRIN 325 MG ORAL TABS 1 tab q.d ASPIRIN 325 MG ORAL TABS 665277 ASPIRIN Inactive FLUTICASONE PROPIONATE 50 MCG/ACT SUSP 2 sprays each nostril daily before bed. FLUTICASONE PROPIONATE 50 MCG/ACT SUSP 6639821 FLUTICASONE PROPIONATE Inactive ZOFRAN 4 MG TABS 1 po q6hr PRN Nausea ZOFRAN 4 MG TABS 146254 ONDANSETRON HCL Inactive KEFLEX 500 MG CAP 1 po qid KEFLEX 500 MG CAP 710043 CEPHALEXIN Inactive ACETAMINOPHEN-CODEINE 120-12 MG/5ML SOLN 5 ml by mouth every 4-6 hours if needed for cough ACETAMINOPHEN-CODEINE 120-12 MG/5ML SOLN 592023 ACETAMINOPHEN-CODEINE Inactive PREDNISONE 20 MG TAB 1 tablet daily x 4 days PREDNISONE 20 MG TAB 529298 PREDNISONE Inactive TROPICAMIDE 0.5 % OPHTH SOLN 1 drop PRN eye spasms TROPICAMIDE 0.5 % [facility] 246660 TROPICAMIDE Inactive LEVAQUIN 500 MG TABS 1 daily for infection LEVAQUIN 500 MG TABS 032372 LEVOFLOXACIN Inactive PREDNISONE 10 MG TABS 2 daily for 5 days then 1 daily for 5 days PREDNISONE 10 MG TABS 331576 PREDNISONE Inactive EQ NICOTINE 21 MG/24HR TRANS [...] for cough TESSALON PERLES 100 MG CAPS 890138 BENZONATATE Inactive CEFDINIR 300 MG CAPS by mouth twice a day CEFDINIR 300 MG CAPS 998906 CEFDINIR Inactive PREDNISONE 20 MG TAB 2 tabs daily for 3 days, 1 tab daily for 3 days, 1/2 tab daily for 2 days PREDNISONE 20 MG TAB 525536 PREDNISONE Inactive BACTRIM DS 800-160 MG TABS 1 po BID x 7 days BACTRIM DS 800-160 MG TABS 775829 SULFAMETHOXAZOLE-TRIMETHOPRIM Inactive DIFLUCAN 150 MG TABS 1 pill every other day x 2 doses DIFLUCAN 150 MG TABS 19751126 FLUCONAZOLE Inactive BACTRIM DS 800-160 MG TABS 1 pill by mouth twice daily BACTRIM DS 800-160 MG TABS 938750 SULFAMETHOXAZOLE-TRIMETHOPRIM Inactive KEFLEX 500 MG CAP 1 po TID x 10 days KEFLEX 500 MG CAP 187088 CEPHALEXIN Inactive Advance Directives Directive Description Start [...] pressure, diastolic - 8462-4 81 mm[Hg] BP mcnlaly blood pressure, systolic - 8480-6 124 mm[Hg] [...] % 11.0-15.0 platelet count 443 THOUSAND/UL 10*3/mm3 177-581 7824/03/01 mean platelet volume 8.2 fL 7.5-12.5 leukocyte [...] % 11.0-15.0 platelet count 349 THOUSAND/UL 10*3/mm3 118-665 6196/04/12 mean platelet volume 8.4 fL 7.5-12.5 Lab Report: CBC, Thyroid Stimulating Hormone (L) - Chemistry TSH 0.62 m[iU]/mL 0.36-3.74 Lab Report: CBC, Thyroid Stimulating Hormone (L) - Hematology erythrocyte (RBC) count 4.78 10^6/MM^3 10*6/mm3 4.04-5.48 hemoglobin, blood 15.3 g/dL 12.0-16.0 hematocrit, blood 45.0 % 36.0-46.0 mean corpuscular volume, RBC 94 fL 80-97 leukocyte count, blood 11.1 10^3/MM^3 10*3/mm3 4.6-10.2 mean corpuscular hemoglobin concentration, RBC 34.1 G/DL % 31.8- 35.4 red blood cell distribution width 11.8 % 11.6-14.8 platelet count 369 10^3/MM^3 10*3/mm3 697-716 5036/12/21 mean corpuscular hemoglobin, RBC 32.1 pg 27.0-31.2 Lab Report: Chlamydia/GC APTIMA/[id number] - Lab chlamydia DNA probe NOT DETECTED NOT DETECTED Lab Report: Chlamydia/GC APTIMA/00173 - Microbiology Neisseria gonorrhoeae DNA probe NOT DETECTED NOT DETECTED Lab Report: Chlamydia/GC APTIMA/52174, Urinalysis, Complete, with Reflex ... - Lab chlamydia DNA probe NOT DETECTED NOT DETECTED Lab Report: Chlamydia/GC APTIMA/21581, Urinalysis, Complete, with Reflex ... - Microbiology Neisseria gonorrhoeae DNA probe NOT DETECTED NOT DETECTED Lab Report: Chlamydia/GC APTIMA/15021, Urinalysis, Complete, with Reflex ... - Urinalysis microalbumin/total urine volume 2 mg/L Units converted. See lab report for original value. microalbumin/creatinine ratio, urine 9 MCG/MG CREAT mg/L <30 Lab Report: Comp. Metabolic Panel - Chemistry blood glucose 95 mg/dL 65-110 chloride, serum 105 mmol/L 98-107 potassium, serum 4.0 mmol/L 3.5-5.2 carbon dioxide, venous blood 27.6 mmol/L 21.0-32.0 sodium, serum 142 mmol/L 510-116 1409/08/08 sodium, serum 140 mmol/L 055-445 6815/08/08 creatinine, serum 0.88 mg/dL 0.55-1.30 alanine aminotransferase [...] - Urinalysis glucose, urine, semiquantitative Negative Negative glucose, urine, [...] mg/dL Encounters Code Encounter Date Provider Facility CPT-91824 Level 3 Est. Patient 10:00:25 CDT Suzan Boo [facility] CPT-43314 Level 3 Est. Patient 10:29:30 CDT Suzan Boo [facility] CPT-25701 Level 3 Est. Patient 11:04:38 CDT Renzo Thornton [facility] CPT-59832 Level 3 Est. Patient 11:15:58 MEDICAL RESEARCHER Renzo Thornton [facility] CPT-00190 Level 3 Est. Patient 15:28:23 MEDICAL RESEARCHER Suzan Boo [facility] CPT-58740 Level 4 Est. Patient 10:20:54 MEDICAL RESEARCHER Suzan Boo [facility] CPT-83694 Level 3 Est. Patient 11:47:37 MEDICAL RESEARCHER Ahmet Carbajal MD [facility] CPT-66743 Level 3 Est. Patient 10:40:11 MEDICAL RESEARCHER Ahmet Carbajal MD [facility] CPT-07915 Level 3 Est. Patient 15:07:06 MEDICAL RESEARCHER Neeraj Collins MD [facility] CPT-36784 Level 4 Est. Patient 14:45:00 MEDICAL RESEARCHER Ahmet Carbajal MD [facility] CPT-62628 Level 3 Est. Patient 13:59:59 CDT Luigi Martínez [facility] CPT-68435 Level 3 Est. Patient 18:18:53 CDT Neeraj Collins MD [facility] CPT-45447 Level 3 Est. Patient 15:50:44 CDT Vishal Hui MD [facility] CPT-62206 Level 3 Est. Patient 11:36:17 CDT Ahmet Carbajal MD [facility] CPT-30710 Level 3 Est. Patient 13:29:16 CDT Vishal Hui MD [facility] CPT-58980 Level 3 Est. Patient 14:27:52 CDT Neeraj Collins MD [facility] CPT-77866 Level 3 Est. Patient 08:56:03 CDT Luigi Martínez [facility] CPT-95112 Level 4 Est. Patient 12:11:48 CDT Fabiola Johnson [facility] CPT-19410 Level 3 New Patient 16:53:37 CDT Albert Caldera MD [facility] CPT-42282 Level 3 Est. Patient 11:25:49 CDT Renzo Thornton DO [facility] CPT-95553 Level 3 Est. Patient 15:22:01 CDT Ahmet Carbajal MD [facility] CPT-75856 Level 4 Est. Patient 09:00:51 MEDICAL RESEARCHER Vishal Hui MD [facility] CPT-62171 Level 3 Est. Patient 11:37:33 MEDICAL RESEARCHER Vishal Hui MD [facility] CPT-05227 Level 3 Est. Patient 08:41:09 MEDICAL RESEARCHER Vishal Hui MD [facility] CPT-57648 Level 4 Est. Patient 10:19:35 MEDICAL RESEARCHER Vishal Hui MD [facility] CPT-66209 Level 3 Est. Patient 13:35:45 CDT Vishal Hui MD [facility] CPT-45538 Level 4 Est. Patient 10:08:37 CDT Vishal Hui MD [facility]-45198 Level 3 Est. Patient 11:22:10 CDT Vishal Hui MD [facility] CPT-46381 Level 3 Est. Patient 11:03:32 CDT Sahara Rodriguez MD [facility]-88880 Level 3 Est. Patient 09:41:35 CDT Vishal Hui MD [facility]-79416 Level 3 Est. Patient 12:00:41 CDT Neeraj Collins MD [facility]-25511 Level 3 Est. Patient 09:16:24 CDT Vishal Hui MD [facility] CPT-41649 Level 4 Est. Patient 13:59:09 CDT Neeraj Collins MD [facility] CPT-48390 Level 3 Est. Patient 15:19:43 CDT Renzo Thornton DO [facility] CPT-74381 Level 3 Est. Patient 18:10:26 CDT Sahara Rodriguez MD [facility]-90240 Level 3 Est. Patient 14:49:50 CDT Vishal Hui MD [facility]-06034 Level 4 Est. Patient 18:41:46 CDT Neeraj Collins MD [facility] CPT-61229 Level 4 Est. Patient 09:18:38 MEDICAL RESEARCHER Vishal Hui MD [facility]-25614 Level 3 Est. Patient 14:43:55 MEDICAL RESEARCHER Vishal Hui MD [facility] CPT-00820 Level 3 Est. Patient 15:26:33 MEDICAL RESEARCHER Sahara Rodriguez MD [facility]-31138 Level 3 Est. Patient 10:32:14 MEDICAL RESEARCHER Vishal Hui MD [facility] CPT-15658 Level 3 Est. Patient 15:12:52 MEDICAL RESEARCHER Vishal Hui MD [facility] CPT-69670 Level 4 Est. Patient 09:19:27 CDT Vishal Hui MD [facility] CPT-69458 Level 3 Est. Patient 15:53:00 CDT Renzo Thornton [facility] CPT-10356 Level 3 Est. Patient 15:50:30 CDT Renzo Thornton [facility] CPT-69267 Level 3 Est. Patient 16:55:24 CDT Vishal Hui MD [facility] Procedures Code Procedure Name Date Entry Date Standard Description CPT-36803 Venipuncture Draw Fee 08:41:12 CDT CPT-62770 Abd compl w upright - XRAY USE ONLY 10:27:59 CDT 06/28 CPT-12927 Smoking Cessation counseling 11:15:58 MEDICAL RESEARCHER CPT-G0439 [facility] Annual Wellness Exam 09:30:58 MEDICAL RESEARCHER CPT-75364 TSH - LAB USE ONLY 08:50:26 MEDICAL RESEARCHER CPT-34323 CBC - LAB USE ONLY 08:50:26 MEDICAL RESEARCHER CPT-82758 Venipuncture Draw Fee 08:50:26 MEDICAL RESEARCHER CPT-92245 Abx/Therapy Injection 17:34:30 MEDICAL RESEARCHER CPT-47156 Nexplanon Removal with Reinsertion 14:09:32 CDT CPT-J7307 Nexplanon (Implant) 14:09:32 CDT CPT-OV Office Visit 14:09:32 CDT CPT-32990 UA w micro - LAB USE ONLY 16:21:13 CDT CPT-80773 Wet Mount - LAB USE ONLY 16:21:13 CDT CPT-57276 First Vx - Ix admin for Medicare patients 14:37:47 CDT CPT-01491 Fluzone Preservative Free Intramuscular Suspension 14:37 :47 CDT CPT-07715 Abx/Therapy Injection 13:54:22 CDT CPT-91830 Abx/Therapy Injection 08:47:09 CDT CPT-87220 Abx/Therapy Injection 13:29:56 CDT CPT-99872 Abx/Therapy Injection 08:36:16 CDT CPT-67545 Wet [place] - LAB USE ONLY 17:44:58 CDT CPT-74952 UA w micro - LAB USE ONLY 17:44:58 CDT CPT-04598 CMP - LAB USE ONLY 17:44:58 CDT CPT-41430 Venipuncture Draw Fee 17:44:58 CDT CPT-39195 Cervical Min 4V - XRAY USE ONLY 09:01:40 CDT CPT-59470 Chest 2V Frontal and Lat - XRAY USE ONLY 11:06:31 CDT CPT-66630 EKG Trac and Interp - XRAY USE ONLY 11:31:43 CDT 08/26 CPT-J3420 Vitamin B12 1000mcg (Cyanocobalamin) 08:10:26 MEDICAL RESEARCHER 04/12 CPT-20375 Abx/Therapy Injection 08:10:26 MEDICAL RESEARCHER CPT-G0438 Initial Annual Wellness Exam 19:01:01 MEDICAL RESEARCHER CPT-J3420 Vitamin B12 1000mcg (Cyanocobalamin) 16:57:46 CDT 08/14 CPT-16935 Recombivax HB Injection Suspension 5 MCG/0.5ML 08:37:50 MEDICAL RESEARCHER CPT-19949 Immunization Single Admin 08:37:50 MEDICAL RESEARCHER CPT-J3420 Vitamin B12 1000mcg (Cyanocobalamin) 08:32:16 MEDICAL RESEARCHER 03/11 CPT-47942 Abx/Therapy Injection 08:32:16 MEDICAL RESEARCHER CPT-48828 Chest 2V Frontal and Lat 11:46:38 MEDICAL RESEARCHER CPT-49531 Venipuncture Draw Fee 09:12:45 MEDICAL RESEARCHER CPT-J3420 Vitamin B12 1000mcg (Cyanocobalamin) 08:50:15 MEDICAL RESEARCHER 02/08 CPT-12634 Abx/Therapy Injection 08:50:15 MEDICAL RESEARCHER CPT-Cryo Cryotherapy 10:19:35 MEDICAL RESEARCHER CPT-000 Give Appropriate Flu Vaccine 09:22:16 CDT CPT-J3420 Vitamin B12 1000mcg (Cyanocobalamin) 19:08:57 CDT 01/11 CPT-51382 Abx/Therapy Injection 19:08:57 CDT CPT-J3420 Vitamin B12 1000mcg (Cyanocobalamin) 08:19:08 CDT 12/11 CPT-74017 Abx/Therapy Injection 08:19:08 CDT CPT-J3420 Vitamin B12 1000mcg (Cyanocobalamin) 14:48:00 CDT 11/09 CPT-95492 Abx/Therapy Injection 14:47:59 CDT CPT-J3420 Vitamin B12 1000mcg (Cyanocobalamin) 08:34:04 CDT 10/09 CPT-21977 Abx/Therapy Injection 08:34:04 CDT CPT-J3420 Vitamin B12 1000mcg (Cyanocobalamin) 09:18:52 CDT 09/11 CPT-79134 Abx/Therapy Injection 09:18:52 CDT CPT-J3420 Vitamin B12 1000mcg (Cyanocobalamin) 08:35:44 CDT 09/04 CPT-39606 Abx/Therapy Injection 08:35:44 CDT CPT-00057 Immunization Single Admin 11:07:16 CDT CPT-63994 Hepatitis B adult IM 11:07:16 CDT CPT-J3420 Vitamin B12 1000mcg (Cyanocobalamin) 11:00:49 CDT 08/28 CPT-J1040 Depo Medrol 80 mg (Methyl Prednisolone Acetate) 11:00: 49 CDT CPT-75960 Abx/Therapy Injection 11:00:49 CDT CPT-J1040 Depo Medrol 80 mg (Methyl Prednisolone Acetate) 09:16: 23 CDT CPT-J3420 Vitamin B12 1000mcg (Cyanocobalamin) 08:27:05 CDT 08/20 CPT-83517 Abx/Therapy Injection 08:27:05 CDT CPT-12247 Recombivax HB Injection Suspension 5 MCG/0.5ML 10:00:41 CDT CPT-20193 Administration single or combination vaccine inc oral 10 :00:41 CDT CPT-59768 Sono transvag pelvis non OB uterus ovaries cervix 16:36: 57 CDT CPT-50299 LS spine comp w obliq 09:50:55 MEDICAL RESEARCHER CPT-42926 Abd compl w upright 09:50:55 MEDICAL RESEARCHER CPT-J1100 Decadron 4mg (Dexamethasone) 15:51:24 MEDICAL RESEARCHER CPT-J1030 Depo Medrol 40 mg (Methyl Prednisolone Acetate) 15:51: 24 MEDICAL RESEARCHER CPT-59271 Abx/Therapy Injection 15:51:24 MEDICAL RESEARCHER CPT-J1100 Decadron 4mg (Dexamethasone) 15:26:33 MEDICAL RESEARCHER CPT-J1030 Depo Medrol 40 mg (Methyl Prednisolone Acetate) 15:26: 33 MEDICAL RESEARCHER CPT-55942 Sono retroperitoneal complete kidneys and bladder 17:15: 30 CDT CPT-26144 Abd compl w upright 16:09:25 CDT CPT-J1100 Decadron 8mg (Dexamethasone) 17:07:57 CDT CPT-26558 Abx/Therapy Injection 17:07:57 CDT CPT-J1100 Decadron 8mg (Dexamethasone) 16:55:24 CDT CPT-39517 Chest 2V Frontal and Lat 16:32:44 CDT
--- OUTSIDE RECORDS SUMMARY | 2016-11-04 21:29 | XMS REPORT | Clinical Summary ---
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 LINACLOTIDE 77892421110 No Longer Active Sheila Calderon LPN Active AMITIZA 8 MCG ORAL CAPS 1 tab BID LUBIPROSTONE 16919060371 No Longer Active Lynda Madl RESTORATIVE AIDE Active DIFLUCAN 150 MG TABS 1 by mouth for yeast FLUCONAZOLE 43417687914 Active Suzan Boo APRN Active LACTULOSE 10 GM/15ML ORAL SOLN 30mL oral BID for IBS-C LACTULOSE 86711956775 Active Suzan oBo APRN Active BACTRIM DS 800-160 MG TABS 1 twice a day SULFAMETHOXAZOLE- TRIMETHOPRIM 41551050442 Active Lynda Madl RESTORATIVE AIDE Active MUPIROCIN 2 % OINT apply twice a day MUPIROCIN 91782812467 Active Suzan Boo APRN Active TESSALON PERLES 100 MG CAPS 1 three times a day as needed for cough BENZONATATE 73856982373 No Longer Active Suzan Boo APRN Active BACTRIM DS 800-160 MG TABS 1 twice a day SULFAMETHOXAZOLE-TRIMETHOPRIM 73107605412 No Longer Active Suzan Boo APRN Active DIFLUCAN 150 MG TABS 1 by mouth for yeast FLUCONAZOLE 30255907196 No Longer Active Suzan Boo APRN Active EQ NICOTINE 21 MG/24HR TRANS PT24 Apply daily to stop smoking NICOTINE 74349525468 No Longer Active Suzan Boo APRN Active PREDNISONE 10 MG TABS 2 daily for 5 days then 1 daily for 5 days PREDNISONE 69597777165 No Longer Active Suzan Boo APRN Active LEVAQUIN 500 MG TABS 1 daily for infection LEVOFLOXACIN 35046361721 No Longer Active Suzan Boo APRN Active TROPICAMIDE 0.5 % OPHTH SOLN 1 drop PRN eye spasms TROPICAMIDE 74848453794 No Longer Active Suzan Boo APRN Active PREDNISONE 20 MG TAB 1 tablet daily x 4 days PREDNISONE 19458663162 No Longer Active Szuan Boo APRN Active ACETAMINOPHEN-CODEINE 120-12 MG/5ML SOLN 5 ml by mouth every 4-6 hours if needed for cough ACETAMINOPHEN-CODEINE 11015318862 No Longer Active Suzan Boo APRN Active KEFLEX 500 MG CAP 1 po qid CEPHALEXIN 12141053598 No Longer Active Suzan Boo APRN Active FLOVENT HFA 110 MCG/ACT AERO 2 puffs inhaled b.i.d. FLUTICASONE PROPIONATE HFA 74302555857 Active Renzo Thornton DO Active RISPERDAL 4 MG ORAL TABS 1 tab at bedtime RISPERIDONE 27999641446 Active Samantha Rothman RMA Active ZOFRAN 4 MG TABS 1 po q6hr PRN Nausea ONDANSETRON HCL No Longer Active Suzan Boo APRN Active FLUTICASONE PROPIONATE 50 MCG/ACT SUSP 2 sprays each nostril daily before bed. FLUTICASONE PROPIONATE 31133546881 No Longer Active Suzan Boo APRN Active ASPIRIN 325 MG ORAL TABS 1 tab q.d ASPIRIN 20048014707 No Longer Active Suzan Boo APRN Active HALOPERIDOL 10 MG ORAL TABS 1 tab q.d HALOPERIDOL 81313618916 No Longer Active Suzan Boo APRN Active GUAIFENESIN-CODEINE 100-10 MG/5ML SYRP 5ml every 4 to 6 hours as needed for cough GUAIFENESIN-CODEINE 73363918347 No Longer Active Suzan Boo APRN Active ZITHROMAX Z-EARNEST 250 MG TABS 2 today and then 1 daily for 4 days AZITHROMYCIN 05674887324 No Longer Active Suzan Boo APRN Active CLONAZEPAM 1 MG ORAL TABS 1 twice a day and an additional 1 tablet every other day as needed for pseudoseizures or anxiety CLONAZEPAM 34355062420 Active Suzan Boo APRN Active HYDROCODONE-ACETAMINOPHEN 5-325 MG ORAL TABS 1 tab two times a day HYDROCODONE-ACETAMINOPHEN 81714528597 No Longer Active Ahmet Carbajal MD Active LAMICTAL 100 MG ORAL TABS 1 tab 2 times qd. LAMOTRIGINE 21048062657 Active Ahmet Carbajal MD Active PREDNISONE 20 MG TABS 2 daily for 5 days then 1 daily for 5 days PREDNISONE 61791302826 No Longer Active Ahmet Carbajal MD Active FLUTICASONE PROPIONATE 50 MCG/ACT SUSP 1 to 2 sprays each nostril daily for allergies FLUTICASONE PROPIONATE 70277306407 Active Tila Valenzuela Active BENADRYL 25 MG CAP 4 po at bedtime for insomnia DIPHENHYDRAMINE HCL 52096638689 No Longer Active Ahmet Carbajal MD Active ADVAIR DISKUS 250-50 MCG/DOSE INH AEPB 1 puff twice a day for asthma FLUTICASONE-SALMETEROL 74694254387 No Longer Active Ahmet Carbajal MD Active KLONOPIN 1 MG ORAL TABS 1 tab po TID CLONAZEPAM 17546630883 No Longer Active Ahmet Carbajal MD Active ABILIFY MAINTENA 400 MG IM SUSR 400mg injection every 26 days ARIPIPRAZOLE 47808756627 No Longer Active Ahmet Carbajal MD Active TRAMADOL HCL 50 MG TABS 1/2-1 tab TID PRN TRAMADOL HCL 61781037590 No Longer Active Ahmet Carbajal MD Active BACTRIM DS 800-160 MG TABS 1 twice a day SULFAMETHOXAZOLE- TRIMETHOPRIM 47055291372 No Longer Active Ahmet Carbajal MD Active PROAIR HFA 108 (90 BASE) MCG/ACT AERS 2 puffs four times a day as needed 2015 ALBUTEROL SULFATE 13503115543 Active Honey Hinton APRN Active MONISTAT 7 COMBO PACK WOODROW 100 & 2 MG-% (9GM) VAG KIT 1 applicatorful per vagina q pm x 7 MICONAZOLE NITRATE 75678236008 No Longer Active Ahmet Carbajal MD Active FLAGYL 500 MG TAB 1 tablet by mouth bid METRONIDAZOLE 63785131423 No Longer Active Ahmet Carbajal MD Active OXYCODONE HCL ER 10 MG ORAL T12A 1/2 tab by mouth every 4 hours prn OXYCODONE HCL 17146551894 No Longer Active Ahmet Carbajal MD Active METHYLPREDNISOLONE 4 MG ORAL TABS po daily METHYLPREDNISOLONE 64044543217 No Longer Active Ahmet Carbajal MD Active LEVOFLOXACIN 500 MG ORAL TABS po daily LEVOFLOXACIN 80692714177 No Longer Active Ahmet Carbajal MD Active VIIBRYD 10 MG ORAL TABS Take 1 tablet once a day VILAZODONE HCL 33371167771 No Longer Active Ahmet Carbajal MD Active TOPAMAX 50 MG ORAL TABS 1 tab twice daily TOPIRAMATE 18544464464 No Longer Active Ahmet Carbajal MD Active DICLOFENAC SODIUM 50 MG TBEC 1 tablet by mouth four times daily PRN Pain 2015 DICLOFENAC SODIUM 58696678341 No Longer Active Ahmet Carbajal MD Active ADZENYS XR-ODT 6.3 MG ORAL TBED 1 tab po daily for ADHD AMPHETAMINE 23385121500 No Longer Active Ahmet Carbajal MD Active CHANTIX 1 MG TABS 1 twice a day to help quit smoking VARENICLINE TARTRATE 15280210503 No Longer Active Dipika Burgos MD Active CHANTIX STARTING MONTH EARNEST 0.5 MG X 11 & 1 MG X 42 TABS take as directed 2015 VARENICLINE TARTRATE 96751287996 No Longer Active Dipika Burgos MD Active TESSALON PERLES 100 MG CAP 1 to 2 tablets by mouth 3 times daily as needed for cough BENZONATATE 88369893184 No Longer Active Luigi Martínez APRN Active IMITREX 50 MG ORAL TABS 0.5 po x 1 PRN Headache. May repeat dose x 1 in 2 hours if needed SUMATRIPTAN SUCCINATE 05699506066 Active Ahmet Carbajal MD Active HYDROCODONE-ACETAMINOPHEN 5-325 MG TABS 1 to 2 four times a day as needed for pain use until can be seen by specialist HYDROCODONE- ACETAMINOPHEN 25823659793 No Longer Active Vishal Hui MD Active PROAIR HFA 108 (90 BASE) MCG/ACT AERS 2 puffs four times a day as needed 2015 ALBUTEROL SULFATE 68721387261 No Longer Active Vishal Hui MD Active PREDNISONE 20 MG TABS 2 daily for 5 days then 1 daily for 5 days PREDNISONE 69422742720 No Longer Active Vishal Hui MD Active ZITHROMAX Z-EARNEST 250 MG TABS 2 today and then 1 daily for 4 days AZITHROMYCIN 75465606752 No Longer Active Vishal Hui MD Active DICLOFENAC POTASSIUM TABS Take 1 tablet twice a day (pt. is not sure of the dose.) DICLOFENAC POTASSIUM TABS 83871593671 No Longer Active Vishal Hui MD Active VERAPAMIL HCL ER 120 MG ORAL CR-TABS Take 1 tablet by mouth twice a day. VERAPAMIL HCL 80684999819 Active Vishal Hui MD Active FLAGYL 500 MG TAB 1 tablet by mouth bid METRONIDAZOLE 03724514539 No Longer Active Vishal Hui MD Active VALIUM 5 MG TAB Take 1-2 tablets daily DIAZEPAM 61392412203 No Longer Active Fabiola Johnson APRN Active METOPROLOL TARTRATE 25 MG ORAL TABS 1/2 tablet twice daily for heart rate and blood pressure METOPROLOL TARTRATE 80256629555 No Longer Active Fabiola Johnson APRN Active MIRALAX ORAL POWD 17GMS DAILY IN WATER POLYETHYLENE GLYCOL 3350 89003052463 Active TAMARA Casey Active MIRALAX PACK 1 po qd PRN Constipation POLYETHYLENE GLYCOL 3350 90671383393 No Longer Active Ahmet Carbajal MD Active MINIPRESS 2 MG CAPS 4 cap po at night PRAZOSIN HCL 68684941118 No Longer Active Ahmet Carabjal MD Active PIROXICAM 20 MG CAPS 1 cap po qd PRN Pain PIROXICAM 51764242537 No Longer Active Ahmet Carbajal MD Active TRAMADOL HCL 50 MG TABS 1-2 po TID PRN Pain TRAMADOL HCL 43553511316 No Longer Active Ahmet Carbajal MD Active METOPROLOL TARTRATE 50 MG TAB 1 po bid METOPROLOL TARTRATE 35155822667 No Longer Active Ahmet Carbajal MD Active ABILIFY 15 MG ORAL TABS 1 tab daily ARIPIPRAZOLE 56008751910 No Longer Active Ahmet Carbajal MD Active PROZAC 20 MG ORAL CAPS 1 tab daily FLUOXETINE HCL 68638314786 No Longer Active Ahmet Carbajal MD Active AMBIEN 5 MG ORAL TABS 1 tab at bedtime ZOLPIDEM TARTRATE 28567265653 No Longer Active Ahmet Carbajal MD Active PREDNISONE 20 MG TAB 2 tabs daily for 4 days, 1 tab daily for 4 days, 1/2 tab daily for 4 days PREDNISONE 51657937604 No Longer Active Ahmet Carbajal MD Active KEFLEX 500 MG CAP 1 po TID x 10 days CEPHALEXIN 22096249765 No Longer Active Vishal Hui MD Active SAPHRIS 5 MG SUBL 1 po bid ASENAPINE MALEATE 60256668742 No Longer Active Luigi Martínez APRN Active LATUDA 80 MG TABS Take one by mouth daily LURASIDONE HCL 57712542296 No Longer Active Jillina Frazell YOUTH WORKER Active AMLODIPINE BESYLATE 5 MG TABS 1 tablet by mouth daily AMLODIPINE BESYLATE 64232394658 No Longer Active Jillina Fralebron YOUTH WORKER Active AMITRIPTYLINE HCL 100 MG TAB one at hs AMITRIPTYLINE HCL 48460108912 No Longer Active Vishal Hui MD Active TRAZODONE HCL 100 MG TAB take 1 at bedtime TRAZODONE HCL 29602017254 No Longer Active Vishal Hui MD Active VYVANSE 40 MG CAPS 1 daily, LISDEXAMFETAMINE DIMESYLATE 05003474346 No Longer Active Vishal Hui MD Active IBUPROFEN 600 MG TAB 1 po TID PRN IBUPROFEN 49423067600 No Longer Active Vishal Hui MD Active PROZAC 20 MG CAP Take one by mouth daily FLUOXETINE HCL 81825399411 No Longer Active Vishal Hui MD Active BACTRIM DS 800-160 MG TABS 1 pill by mouth twice daily SULFAMETHOXAZOLE-TRIMETHOPRIM 99400623341 No Longer Active Sahara Rodriguez MD PhD Active DIFLUCAN 150 MG TAB 1 tablet by mouth daily FLUCONAZOLE 91017826579 No Longer Active Vishal Hui MD Active TIZANIDINE HCL 4 MG TABS 1 po q6hr PRN Muscle Spasm/Back Pain TIZANIDINE HCL 76397965822 Active TAMARA Casey Active CLINDAMYCIN HCL 150 MG CAPS 1 four times a day CLINDAMYCIN HCL 43368073845 No Longer Active Neeraj Collins MD Active KEFLEX 500 MG ORAL CAPS 1 cap QID by mouth CEPHALEXIN 45788827246 No Longer Active Neeraj Collins MD Active DIFLUCAN 150 MG TABS 1 pill every other day x 2 doses FLUCONAZOLE 47948439797 No Longer Active Sahara Rodriguez MD PhD Active MELATONIN 3 MG CAPS 2 po q hs MELATONIN 01543720434 No Longer Active Sahara Rodriguez MD PhD Active MULTIVITAMINS CAPS Take one by mouth daily MULTIPLE VITAMIN 59155397182 No Longer Active Sahara Rodriguez MD PhD Active BACTRIM DS 800-160 MG TAB 1 tab by mouth twice daily TRIMETHOPRIM-SULFAMETHOXAZOLE 88349678912 No Longer Active Sahara Rodriguez MD PhD Active [facility] PROBIOTIC ORAL CHEW 2 daily po PROBIOTIC PRODUCT 69660084321 No Longer Active Sahara Rodriguez MD PhD Active BACTRIM DS 800-160 MG TABS 1 po BID x 7 days SULFAMETHOXAZOLE-TRIMETHOPRIM 61217693159 No Longer Active Vishal Hui MD Active CHANTIX STARTING MONTH EARNEST 0.5 MG X 11 & 1 MG X 42 TABS 0.5mg daily for 3 days , then 0.5mg BID for 4 days, then 1mg BID VARENICLINE TARTRATE 56605277682 No Longer Active TAMARA Gray Active VERAPAMIL HCL CR 120 MG TAB CR 1 po bid VERAPAMIL HCL 32967806653 No Longer Active Vishal Hui MD Active METOPROLOL SUCCINATE 50 MG TB24 1 tablet by mouth daily METOPROLOL SUCCINATE 83560829078 No Longer Active Vishal Hui MD Active SAPHRIS 10 MG SUBL 1 tab po bid ASENAPINE MALEATE 67972558253 No Longer Active Vishal Hui MD Active LISINOPRIL 20 MG TABS 1 tab po qd LISINOPRIL 19023144712 No Longer Active Vishal Hui MD Active LATUDA 20 MG TABS Take one by mouth daily LURASIDONE HCL 97538059040 No Longer Active Vishal Hui MD Active TRAZODONE HCL 50 MG TABS 1/2 tab po qd prn for anxiety TRAZODONE HCL 81558938907 No Longer Active Vishal Hui MD Active OMEPRAZOLE 20 MG TBEC 1 po q a.m. 30min prior to first food intake OMEPRAZOLE 50847002508 Active TAMARA Casey Active RANITIDINE HCL 150 MG CAPS 1 twice a day RANITIDINE HCL 25714377609 Active Lynda Xiao LPN Active LINZESS 290 MCG CAPS Take one by mouth daily LINACLOTIDE 11506176324 No Longer Active Vishal Hui MD Active SAPHRIS 5 MG SUBL 1 tab po qd ASENAPINE MALEATE 02761091699 No Longer Active Vishal Hui MD Active ZALEPLON 10 MG CAPS 1 cap po every other night ZALEPLON 27161739037 No Longer Active Vishal Hui MD Active LYRICA 50 MG CAPS 1 tab po TID PREGABALIN 99921904925 No Longer Active Vishal Hui MD Active LORATADINE 10 MG TABS 1 tab po qd LORATADINE 00207628897 No Longer Active Vishal Hui MD Active VERAPAMIL HCL ER 180 MG CR-TABS 1 tab po bid VERAPAMIL HCL 53923079372 No Longer Active Vishal Hui MD Active MIRALAX POWD 1 capfull once daily POLYETHYLENE GLYCOL 3350 83151709433 No Longer Active Vishal Hui MD Active PREDNISONE 20 MG TABS 1 tab po qd PREDNISONE 59844794710 No Longer Active Renzo Thornton DO Active LEVOFLOXACIN 500 MG TABS 1 tab po qd LEVOFLOXACIN 32976895641 No Longer Active Renzo Thornton DO Active BUSPIRONE HCL 15 MG TABS 1 tab po TID BUSPIRONE HCL 20825547531 No Longer Active Renzo Thornton DO Active BENZTROPINE MESYLATE 1 MG TABS 1 tab po qd BENZTROPINE MESYLATE 99719143262 No Longer Active Renzo Thornton DO Active ATENOLOL 25 MG TABS 1 tab po qd ATENOLOL 59155948414 No Longer Active Renzo Thornton DO Active ESCITALOPRAM OXALATE 20 MG TABS 1 tab po qd ESCITALOPRAM OXALATE 16293034911 No Longer Active Renzo Thornton DO Active ADVAIR DISKUS 250-50 MCG/DOSE AEPB 1 puff BID FLUTICASONE-SALMETEROL 35022981376 No Longer Active Renzo Thornton DO Active PREDNISONE 20 MG TAB 2 tabs daily for 3 days, 1 tab daily for 3 days, 1/2 tab daily for 2 days PREDNISONE 96833008131 No Longer Active Vishal Hui MD Active CEFDINIR 300 MG CAPS by mouth twice a day CEFDINIR 57280836205 No Longer Active Vishal Hui MD Active LANSOPRAZOLE 30 MG CPDR 1 cap po qd LANSOPRAZOLE 71144195656 No Longer Active Vishal Hui MD Active BACLOFEN 20 MG TABS 1 tab po tid BACLOFEN 56556316745 No Longer Active Vishal Hui MD Active ADVAIR DISKUS 250-50 MCG/DOSE AEPB 1 puff BID ADVAIR DISKUS 250-50 MCG/DOSE AEPB FLUTICASONE-SALMETEROL Inactive ESCITALOPRAM OXALATE 20 MG TABS 1 tab po qd ESCITALOPRAM OXALATE 20 MG TABS 508899 ESCITALOPRAM OXALATE Inactive ATENOLOL 25 MG TABS 1 tab po qd ATENOLOL 25 MG TABS 836668 ATENOLOL Inactive BENZTROPINE MESYLATE 1 MG TABS 1 tab po qd BENZTROPINE MESYLATE 1 MG TABS 643034 BENZTROPINE MESYLATE Inactive BUSPIRONE HCL 15 MG TABS 1 tab po TID BUSPIRONE HCL 15 MG TABS 623494 BUSPIRONE HCL Inactive LEVOFLOXACIN 500 MG TABS 1 tab po qd LEVOFLOXACIN 500 MG TABS 608810 LEVOFLOXACIN Inactive PREDNISONE 20 MG TABS 1 tab po qd PREDNISONE 20 MG TABS 698483 PREDNISONE Inactive MIRALAX POWD 1 capfull once daily MIRALAX POWD 362250 POLYETHYLENE GLYCOL 3350 Inactive VERAPAMIL HCL ER 180 MG CR-TABS 1 tab po bid VERAPAMIL HCL ER 180 MG CR-TABS VERAPAMIL HCL Inactive LORATADINE 10 MG TABS 1 tab po qd LORATADINE 10 MG TABS 534345 LORATADINE Inactive LYRICA 50 MG CAPS 1 tab po TID LYRICA 50 MG CAPS PREGABALIN Inactive ZALEPLON 10 MG CAPS 1 cap po every other night ZALEPLON 10 MG CAPS 238857 ZALEPLON Inactive SAPHRIS 5 MG SUBL 1 tab po qd SAPHRIS 5 MG SUBL ASENAPINE MALEATE Inactive TRAZODONE HCL 50 MG TABS 1/2 tab po qd prn for anxiety TRAZODONE HCL 50 MG TABS 294003 TRAZODONE HCL Inactive LATUDA 20 MG TABS Take one by mouth daily LATUDA 20 MG TABS LURASIDONE HCL Inactive LISINOPRIL 20 MG TABS 1 tab po qd LISINOPRIL 20 MG TABS 634026 LISINOPRIL Inactive SAPHRIS 10 MG SUBL 1 [...] twice daily BACTRIM DS 800-160 MG TAB 199283 TRIMETHOPRIM-SULFAMETHOXAZOLE Inactive MULTIVITAMINS CAPS Take one by mouth daily MULTIVITAMINS CAPS MULTIPLE VITAMIN Inactive MELATONIN 3 MG CAPS 2 po q hs MELATONIN 3 MG CAPS 19950526 MELATONIN Inactive KEFLEX 500 MG ORAL CAPS 1 cap QID by mouth KEFLEX 500 MG ORAL CAPS 116597 CEPHALEXIN Inactive CLINDAMYCIN HCL 150 MG CAPS 1 four times a day CLINDAMYCIN HCL 150 MG CAPS 105136 CLINDAMYCIN HCL Inactive DIFLUCAN 150 MG TAB 1 tablet by mouth daily DIFLUCAN 150 MG TAB 614492 FLUCONAZOLE Inactive PROZAC 20 MG CAP Take one by mouth daily PROZAC 20 MG CAP 423434 FLUOXETINE HCL Inactive IBUPROFEN 600 MG TAB 1 po TID PRN IBUPROFEN 600 MG TAB 967690 IBUPROFEN Inactive VYVANSE 40 MG CAPS 1 daily, VYVANSE 40 MG CAPS LISDEXAMFETAMINE DIMESYLATE Inactive TRAZODONE HCL 100 MG TAB take 1 at bedtime TRAZODONE HCL 100 MG TAB 423030 TRAZODONE HCL Inactive AMITRIPTYLINE HCL 100 MG TAB one at hs AMITRIPTYLINE HCL 100 MG TAB 599639 AMITRIPTYLINE HCL Inactive AMLODIPINE BESYLATE 5 MG TABS 1 tablet by mouth daily AMLODIPINE BESYLATE 5 MG TABS 368953 AMLODIPINE BESYLATE Inactive LATUDA 80 MG TABS Take one by mouth daily LATUDA 80 MG TABS LURASIDONE HCL Inactive SAPHRIS 5 MG SUBL 1 po bid SAPHRIS 5 MG SUBL ASENAPINE MALEATE Inactive PREDNISONE 20 MG TAB 2 tabs daily for 4 days, 1 tab daily for 4 days, 1/2 tab daily for 4 days PREDNISONE 20 MG TAB 987204 PREDNISONE Inactive AMBIEN 5 MG ORAL TABS 1 tab at bedtime AMBIEN 5 MG ORAL TABS 570156 ZOLPIDEM TARTRATE Inactive PROZAC 20 MG ORAL CAPS 1 tab daily PROZAC 20 MG ORAL CAPS 892007 FLUOXETINE HCL Inactive ABILIFY 15 MG ORAL TABS 1 tab daily ABILIFY 15 MG ORAL TABS 927757 ARIPIPRAZOLE Inactive METOPROLOL TARTRATE 50 MG TAB 1 po bid METOPROLOL TARTRATE 50 MG TAB 844693 METOPROLOL TARTRATE Inactive TRAMADOL HCL 50 MG TABS 1-2 po TID PRN Pain TRAMADOL HCL 50 MG TABS 294439 TRAMADOL HCL Inactive PIROXICAM 20 MG CAPS 1 cap po qd PRN Pain PIROXICAM 20 MG CAPS 046639 PIROXICAM Inactive MINIPRESS 2 MG CAPS 4 cap po at night MINIPRESS 2 MG CAPS 434880 PRAZOSIN HCL Inactive MIRALAX PACK 1 po qd PRN Constipation MIRALAX PACK 951891 POLYETHYLENE GLYCOL 3350 Inactive METOPROLOL TARTRATE 25 MG ORAL TABS 1/2 tablet twice daily for heart rate and blood pressure METOPROLOL TARTRATE 25 MG ORAL TABS 307440 METOPROLOL TARTRATE Inactive VALIUM 5 MG TAB Take 1-2 tablets daily VALIUM 5 MG TAB 168138 DIAZEPAM Inactive FLAGYL 500 MG TAB 1 tablet by mouth bid FLAGYL 500 MG TAB 557415 METRONIDAZOLE Inactive DICLOFENAC POTASSIUM TABS Take 1 tablet twice a day (pt. is not sure of the dose.) DICLOFENAC POTASSIUM TABS DICLOFENAC POTASSIUM TABS Inactive ZITHROMAX Z-EARNEST 250 MG TABS 2 today and then 1 daily for 4 days ZITHROMAX Z-EARNEST 250 MG TABS 0685516 AZITHROMYCIN Inactive PREDNISONE 20 MG TABS 2 daily for 5 days then 1 daily for 5 days PREDNISONE 20 MG TABS 155338 PREDNISONE Inactive PROAIR HFA 108 (90 BASE) MCG/ACT AERS 2 puffs four times a day as needed 2015 PROAIR HFA 108 (90 BASE) MCG/ACT AERS ALBUTEROL SULFATE Inactive HYDROCODONE-ACETAMINOPHEN 5-325 MG TABS 1 to 2 four times a day as needed for pain use until can be seen by specialist HYDROCODONE- ACETAMINOPHEN 5-325 MG TABS 033332 HYDROCODONE-ACETAMINOPHEN Inactive TESSALON PERLES 100 MG CAP 1 to 2 tablets by mouth 3 times daily as needed for cough TESSALON PERLES 100 MG CAP 486620 BENZONATATE Inactive CHANTIX STARTING MONTH EARNEST 0.5 [...] Pain 2015 DICLOFENAC SODIUM 50 MG TBEC 991106 DICLOFENAC SODIUM Inactive TOPAMAX 50 MG ORAL TABS 1 tab twice daily TOPAMAX 50 MG ORAL TABS 012048 TOPIRAMATE Inactive VIIBRYD 10 MG ORAL TABS Take 1 tablet once a day VIIBRYD 10 MG ORAL TABS VILAZODONE HCL Inactive LEVOFLOXACIN 500 MG ORAL TABS po daily LEVOFLOXACIN 500 MG ORAL TABS 319871 LEVOFLOXACIN Inactive METHYLPREDNISOLONE 4 MG ORAL TABS po daily METHYLPREDNISOLONE 4 MG ORAL TABS 308310 METHYLPREDNISOLONE Inactive OXYCODONE HCL ER 10 MG ORAL T12A 1/2 tab by mouth every 4 hours prn OXYCODONE HCL ER 10 MG ORAL T12A OXYCODONE HCL Inactive FLAGYL 500 MG TAB 1 tablet by mouth bid FLAGYL 500 MG TAB 600522 METRONIDAZOLE Inactive MONISTAT 7 COMBO PACK WOODROW 100 & 2 MG-% (9GM) VAG KIT 1 applicatorful per vagina q pm x 7 MONISTAT 7 COMBO PACK WOODROW 100 & 2 MG-% (9GM) VAG KIT MICONAZOLE NITRATE Inactive BACTRIM DS 800-160 MG TABS 1 twice a day BACTRIM DS 800-160 MG TABS 667646 SULFAMETHOXAZOLE-TRIMETHOPRIM Inactive TRAMADOL HCL 50 MG TABS 1/2-1 tab TID PRN TRAMADOL HCL 50 MG TABS 889402 TRAMADOL HCL Inactive ABILIFY MAINTENA 400 MG IM SUSR 400mg injection every 26 days ABILIFY MAINTENA 400 MG IM SUSR ARIPIPRAZOLE Inactive KLONOPIN 1 MG ORAL TABS 1 tab po TID KLONOPIN 1 MG ORAL TABS 479489 CLONAZEPAM Inactive ADVAIR DISKUS 250-50 MCG/DOSE INH AEPB 1 puff twice a day for asthma ADVAIR DISKUS 250-50 MCG/DOSE INH AEPB FLUTICASONE- SALMETEROL Inactive BENADRYL 25 MG CAP 4 po at bedtime for insomnia BENADRYL 25 MG CAP DIPHENHYDRAMINE HCL Inactive PREDNISONE 20 MG TABS 2 daily for 5 days then 1 daily for 5 days PREDNISONE 20 MG TABS 542267 PREDNISONE Inactive HYDROCODONE-ACETAMINOPHEN 5-325 MG ORAL TABS 1 tab two times a day HYDROCODONE-ACETAMINOPHEN 5-325 MG ORAL TABS 866160 HYDROCODONE-ACETAMINOPHEN Inactive ZITHROMAX Z-EARNEST 250 MG TABS 2 today and then 1 daily for 4 days ZITHROMAX Z-EARNEST 250 MG TABS 8455332 AZITHROMYCIN Inactive GUAIFENESIN-CODEINE 100-10 MG/5ML SYRP 5ml every 4 to 6 hours as needed for cough GUAIFENESIN-CODEINE 100-10 MG/5ML SYRP 798507 GUAIFENESIN-CODEINE Inactive HALOPERIDOL 10 MG ORAL TABS 1 tab q.d HALOPERIDOL 10 MG ORAL TABS 191566 HALOPERIDOL Inactive ASPIRIN 325 MG ORAL TABS 1 tab q.d ASPIRIN 325 MG ORAL TABS 759676 ASPIRIN Inactive FLUTICASONE PROPIONATE 50 MCG/ACT SUSP 2 sprays each nostril daily before bed. FLUTICASONE PROPIONATE 50 MCG/ACT SUSP 0215285 FLUTICASONE PROPIONATE Inactive ZOFRAN 4 MG TABS 1 po q6hr PRN Nausea ZOFRAN 4 MG TABS 622320 ONDANSETRON HCL Inactive KEFLEX 500 MG CAP 1 po qid KEFLEX 500 MG CAP 437321 CEPHALEXIN Inactive ACETAMINOPHEN-CODEINE 120-12 MG/5ML SOLN 5 ml by mouth every 4-6 hours if needed for cough ACETAMINOPHEN-CODEINE 120-12 MG/5ML SOLN 656550 ACETAMINOPHEN-CODEINE Inactive PREDNISONE 20 MG TAB 1 tablet daily x 4 days PREDNISONE 20 MG TAB 409485 PREDNISONE Inactive TROPICAMIDE 0.5 % OPHTH SOLN 1 drop PRN eye spasms TROPICAMIDE 0.5 % OPHTH SOLN 768231 TROPICAMIDE Inactive LEVAQUIN 500 MG TABS 1 daily for infection LEVAQUIN 500 MG TABS 046926 LEVOFLOXACIN Inactive PREDNISONE 10 MG TABS 2 daily for 5 days then 1 daily for 5 days PREDNISONE 10 MG TABS 876435 PREDNISONE Inactive EQ NICOTINE 21 MG/24HR TRANS [...] twice a day CEFDINIR 300 MG CAPS 419006 CEFDINIR Inactive PREDNISONE 20 MG TAB 2 tabs daily for 3 days, 1 tab daily for 3 days, 1/2 tab daily for 2 days PREDNISONE 20 MG TAB 780574 PREDNISONE Inactive BACTRIM DS 800-160 MG TABS 1 po BID x 7 days BACTRIM DS 800-160 MG TABS 576303 SULFAMETHOXAZOLE-TRIMETHOPRIM Inactive DIFLUCAN 150 MG TABS 1 pill every other day x 2 doses DIFLUCAN 150 MG TABS 909681 FLUCONAZOLE Inactive BACTRIM DS 800-160 MG TABS 1 pill by mouth twice daily BACTRIM DS 800-160 MG TABS 601246 SULFAMETHOXAZOLE-TRIMETHOPRIM Inactive KEFLEX 500 MG CAP 1 po TID x 10 days KEFLEX 500 MG CAP [id number] CEPHALEXIN Inactive Advance Directives Directive Description Start [...] % 11.0-15.0 platelet count 443 THOUSAND/UL 10*3/mm3 647-355 2955/03/01 mean platelet volume 8.2 fL 7.5-12.5 leukocyte [...] % 11.0-15.0 platelet count 349 THOUSAND/UL 10*3/mm3 941-321 4136/04/12 mean platelet volume 8.4 fL 7.5-12.5 Lab [...] 369 10^3/MM^3 10*3/mm3 142-424 Lab Report: Chlamydia/GC [id number] - Lab chlamydia DNA probe NOT DETECTED NOT DETECTED Lab Report: Chlamydia/GC [id number] - Microbiology Neisseria gonorrhoeae DNA probe NOT DETECTED NOT DETECTED Lab Report: Chlamydia/GC APTIMA/[id number], Urinalysis, Complete, with Reflex ... - Lab chlamydia DNA probe NOT DETECTED NOT DETECTED Lab Report: Chlamydia/GC APTIMA/52444, Urinalysis, Complete, with Reflex ... - Microbiology Neisseria gonorrhoeae DNA probe NOT DETECTED NOT DETECTED Lab Report: Chlamydia/GC APTIMA/33765, Urinalysis, Complete, with Reflex ... - Urinalysis microalbumin/total urine volume 2 mg/L Units converted. See lab report for original value. microalbumin/creatinine ratio, urine 9 MCG/MG CREAT mg/L <30 Lab Report: Comp. Metabolic Panel - Chemistry sodium, serum 140 mmol/L 891-115 7511/08/08 carbon dioxide, venous blood 33.7 mmol/L 21.0-32.0 [...] urine Clear Clear urine color Yellow Colorless;Lightyellow;Straw;Yellow Encounters Code Encounter Date Provider Facility CPT-25544 Level 4 Est. Patient 10:49:34 CDT Suzan Boo [facility]-02281 Level 3 Est. Patient 10:00:25 CDT Suzan Boo [facility]-71652 Level 3 Est. Patient 10:29:30 CDT Suzan Boo [facility]-29619 Level 3 Est. Patient 11:04:38 CDT Renzo Thonrton [facility]-46024 Level 3 Est. Patient 11:15:58 PERSONAL BANKER Renzo Thornton [facility]-88477 Level 3 Est. Patient 15:28:23 PERSONAL BANKER Suzan Boo [facility]-02000 Level 4 Est. Patient 10:20:54 PERSONAL BANKER Suzan Boo [facility]-04416 Level 3 Est. Patient 11:47:37 PERSONAL BANKER Ahmet Carbajal MD [facility]-71240 Level 3 Est. Patient 10:40:11 PERSONAL BANKER Ahmet Carbajal MD [facility]-12019 Level 3 Est. Patient 15:07:06 PERSONAL BANKER Neeraj Collins MD [facility]-37443 Level 4 Est. Patient 14:45:00 PERSONAL BANKER Ahmet Carbajal MD [facility]-81283 Level 3 Est. Patient 13:59:59 CDT Luigi Martínez [facility]-63083 Level 3 Est. Patient 18:18:53 CDT Neeraj Collins MD [facility]-34491 Level 3 Est. Patient 15:50:44 CDT Vishal Hui MD [facility] CPT-10773 Level 3 Est. Patient 11:36:17 CDT Ahmet Carbajal MD [facility] CPT-12184 Level 3 Est. Patient 13:29:16 CDT Vishal Hui MD [facility] CPT-00974 Level 3 Est. Patient 14:27:52 CDT Neeraj Collins MD [facility] CPT-59890 Level 3 Est. Patient 08:56:03 CDT Luigi Martínez [facility] CPT-59239 Level 4 Est. Patient 12:11:48 CDT Fabiola Johnson [facility] CPT-46409 Level 3 New Patient 16:53:37 CDT Albert Caldera MD [facility] CPT-04222 Level 3 Est. Patient 11:25:49 CDT Renzo Thornton DO [facility] CPT-56544 Level 3 Est. Patient 15:22:01 CDT Ahmet Carbajal MD [facility] CPT-68049 Level 4 Est. Patient 09:00:51 PERSONAL BANKER Vishal Hui MD [facility] CPT-90362 Level 3 Est. Patient 11:37:33 PERSONAL BANKER Vishal Hui MD [facility] CPT-30991 Level 3 Est. Patient 08:41:09 PERSONAL BANKER Vishal Hui MD [facility] CPT-92809 Level 4 Est. Patient 10:19:35 PERSONAL BANKER Vishal Hui MD [facility] CPT-47318 Level 3 Est. Patient 13:35:45 CDT Vishal Hui MD [facility] CPT-97517 Level 4 Est. Patient 10:08:37 CDT Vishal Hui MD [facility] CPT-35398 Level 3 Est. Patient 11:22:10 CDT Vishal Hui MD [facility] CPT-32301 Level 3 Est. Patient 11:03:32 CDT Sahara Rodriguez MD [facility] CPT-22811 Level 3 Est. Patient 09:41:35 CDT Vishal Hui MD [facility] CPT-22590 Level 3 Est. Patient 12:00:41 CDT Neeraj Collins MD [facility] CPT-85465 Level 3 Est. Patient 09:16:24 CDT Vishal Hui MD [facility] CPT-84621 Level 4 Est. Patient 13:59:09 CDT Neeraj Collins MD [facility] CPT-26702 Level 3 Est. Patient 15:19:43 CDT Renzo Thornton DO [facility] CPT-48342 Level 3 Est. Patient 18:10:26 CDT Sahara Rodriguez MD [facility]-68189 Level 3 Est. Patient 14:49:50 CDT Vishal Hui MD [facility] CPT-89358 Level 4 Est. Patient 18:41:46 CDT Neeraj Collins MD [facility] CPT-87653 Level 4 Est. Patient 09:18:38 PERSONAL BANKER Vishal Hui MD [facility] CPT-75131 Level 3 Est. Patient 14:43:55 PERSONAL BANKER Vishal Hiu MD [facility] CPT-89158 Level 3 Est. Patient 15:26:33 PERSONAL BANKER Sahara Rodriguez MD [facility] CPT-50426 Level 3 Est. Patient 10:32:14 PERSONAL BANKER Vishal Hui MD [facility] CPT-64257 Level 3 Est. Patient 15:12:52 PERSONAL BANKER Vishal Hui MD [facility] CPT-79719 Level 4 Est. Patient 09:19:27 CDT Vishal Hui MD [facility] CPT-77224 Level 3 Est. Patient 15:53:00 CDT Renzo Thornton [facility] CPT-65257 Level 3 Est. Patient 15:50:30 CDT Renzo Thornton [facility] CPT-52768 Level 3 Est. Patient 16:55:24 CDT Vishal Hui MD [facility] Procedures Code Procedure Name Date Entry Date Standard Description CPT-27797 Venipuncture Draw Fee 08:41:12 CDT CPT-14545 Abd compl w upright - XRAY USE ONLY 10:27:59 CDT 06/28 CPT-12661 Smoking Cessation counseling 11:15:58 PERSONAL BANKER CPT-G0439 [facility] Annual Wellness Exam 09:30:58 PERSONAL BANKER CPT-39647 TSH - LAB USE ONLY 08:50:26 PERSONAL BANKER CPT-34250 CBC - LAB USE ONLY 08:50:26 PERSONAL BANKER CPT-46239 Venipuncture Draw Fee 08:50:26 PERSONAL BANKER CPT-61824 Abx/Therapy Injection 17:34:30 PERSONAL BANKER CPT-31543 Nexplanon Removal with Reinsertion 14:09:32 CDT CPT-J7307 Nexplanon (Implant) 14:09:32 CDT CPT-OV Office Visit 14:09:32 CDT CPT-79819 UA w micro - LAB USE ONLY 16:21:13 CDT CPT-69067 Wet Mount - LAB USE ONLY 16:21:13 CDT CPT-61107 First Vx - Ix admin for Medicare patients 14:37:47 CDT CPT-32117 Fluzone Preservative Free Intramuscular Suspension 14:37 :47 CDT CPT-12638 Abx/Therapy Injection 13:54:22 CDT CPT-80471 Abx/Therapy Injection 08:47:09 CDT CPT-05101 Abx/Therapy Injection 13:29:56 CDT CPT-00198 Abx/Therapy Injection 08:36:16 CDT CPT-80822 Wet Mount - LAB USE ONLY 17:44:58 CDT CPT-51860 UA w micro - LAB USE ONLY 17:44:58 CDT CPT-40104 CMP - LAB USE ONLY 17:44:58 CDT CPT-87312 Venipuncture Draw Fee 17:44:58 CDT CPT-55687 Cervical Min 4V - XRAY USE ONLY 09:01:40 CDT CPT-68377 Chest 2V Frontal and Lat - XRAY USE ONLY 11:06:31 CDT CPT-79294 EKG Trac and Interp - XRAY USE ONLY 11:31:43 CDT 08/26 CPT-J3420 Vitamin B12 1000mcg (Cyanocobalamin) 08:10:26 PERSONAL BANKER 04/12 CPT-48476 Abx/Therapy Injection 08:10:26 PERSONAL BANKER CPT-G0438 Initial Annual Wellness Exam 19:01:01 PERSONAL BANKER CPT-J3420 Vitamin B12 1000mcg (Cyanocobalamin) 16:57:46 CDT 08/14 CPT-77162 Recombivax HB Injection Suspension 5 MCG/0.5ML 08:37:50 PERSONAL BANKER CPT-67630 Immunization Single Admin 08:37:50 PERSONAL BANKER CPT-J3420 Vitamin B12 1000mcg (Cyanocobalamin) 08:32:16 PERSONAL BANKER 03/11 CPT-22095 Abx/Therapy Injection 08:32:16 PERSONAL BANKER CPT-50397 Chest 2V Frontal and Lat 11:46:38 PERSONAL BANKER CPT-67972 Venipuncture Draw Fee 09:12:45 PERSONAL BANKER CPT-J3420 Vitamin B12 1000mcg (Cyanocobalamin) 08:50:15 PERSONAL BANKER 02/08 CPT-30733 Abx/Therapy Injection 08:50:15 PERSONAL BANKER CPT-Cryo Cryotherapy 10:19:35 PERSONAL BANKER CPT-000 Give Appropriate Flu Vaccine 09:22:16 CDT CPT-J3420 Vitamin B12 1000mcg (Cyanocobalamin) 19:08:57 CDT 01/11 CPT-75833 Abx/Therapy Injection 19:08:57 CDT CPT-J3420 Vitamin B12 1000mcg (Cyanocobalamin) 08:19:08 CDT 12/11 CPT-33569 Abx/Therapy Injection 08:19:08 CDT CPT-J3420 Vitamin B12 1000mcg (Cyanocobalamin) 14:48:00 CDT 11/09 CPT-38300 Abx/Therapy Injection 14:47:59 CDT CPT-J3420 Vitamin B12 1000mcg (Cyanocobalamin) 08:34:04 CDT 10/09 CPT-60497 Abx/Therapy Injection 08:34:04 CDT CPT-J3420 Vitamin B12 1000mcg (Cyanocobalamin) 09:18:52 CDT 09/11 CPT-63023 Abx/Therapy Injection 09:18:52 CDT CPT-J3420 Vitamin B12 1000mcg (Cyanocobalamin) 08:35:44 CDT 09/04 CPT-77417 Abx/Therapy Injection 08:35:44 CDT CPT-05964 Immunization Single Admin 11:07:16 CDT CPT-71185 Hepatitis B adult IM 11:07:16 CDT CPT-J3420 Vitamin B12 1000mcg (Cyanocobalamin) 11:00:49 CDT 08/28 CPT-J1040 Depo Medrol 80 mg (Methyl Prednisolone Acetate) 11:00: 49 CDT CPT-88480 Abx/Therapy Injection 11:00:49 CDT CPT-J1040 Depo Medrol 80 mg (Methyl Prednisolone Acetate) 09:16: 23 CDT CPT-J3420 Vitamin B12 1000mcg (Cyanocobalamin) 08:27:05 CDT 08/20 CPT-10833 Abx/Therapy Injection 08:27:05 CDT CPT-18169 Recombivax HB Injection Suspension 5 MCG/0.5ML 10:00:41 CDT CPT-40950 Administration single or combination vaccine inc oral 10 :00:41 CDT CPT-67534 Sono transvag pelvis non OB uterus ovaries cervix 16:36: 57 CDT CPT-63491 LS spine comp w obliq 09:50:55 PERSONAL BANKER CPT-53763 Abd compl w upright 09:50:55 PERSONAL BANKER CPT-J1100 Decadron 4mg (Dexamethasone) 15:51:24 PERSONAL BANKER CPT-J1030 Depo Medrol 40 mg (Methyl Prednisolone Acetate) 15:51: 24 PERSONAL BANKER CPT-78304 Abx/Therapy Injection 15:51:24 PERSONAL BANKER CPT-J1100 Decadron 4mg (Dexamethasone) 15:26:33 PERSONAL BANKER CPT-J1030 Depo Medrol 40 mg (Methyl Prednisolone Acetate) 15:26: 33 PERSONAL BANKER CPT-79251 Sono retroperitoneal complete kidneys and bladder 17:15: 30 CDT CPT-63683 Abd compl w upright 16:09:25 CDT CPT-J1100 Decadron 8mg (Dexamethasone) 17:07:57 CDT CPT-46722 Abx/Therapy Injection 17:07:57 CDT CPT-J1100 Decadron 8mg (Dexamethasone) 16:55:24 CDT CPT-83422 Chest 2V Frontal and Lat 16:32:44 CDT
--- OUTSIDE RECORDS SUMMARY | 2016-11-04 21:29 | XMS REPORT ---
Author Author [facility] Medical Staff Organization [facility] Address [address] [place], [place] [id number] Phone [phone] Care Team Providers Care Roustabout Pusher Name Role Phone TINO ABRAMS MD PP [phone] Summary purpose TRANSITION OF CARE AUTO GENERATION [...] Status Finding Observation Time Abdomen Appearance round :15 Abdomen non-tender :15 Vick no :15 Urination normal :15 Quality sym/unlabored :15 Cough absent :15 Secretions no :15 Airway natural :15 Chest Tube no :15 Oxygen no :35 Temp >100.4 no :15 Temp <96.8 no :15 Chills with rigors no :15 HR > 90bpm no :15 Respirations > 20 no :15 Systolic <90 no :15 headache stiff neck no :15 Rapid Resp no :15 Nursing Note PT was given tdap and Pt was given home insturction in stable condtion :44 Vital signs Type Value Date Respiration Rate 16breaths per minute :35 Pulse 73beats per minute :35 Oxygen Saturation 100% :35 BP Systolic 125mmHg :35 BP Diastolic 65mmHg :35 Temperature 98F :35 Social history Type Value Smoking Status FORMER SMOKER Treatment Plan No treatment plan text is available for this visit. Hospital discharge instructions Dismissal Condition good Disposition on DC home DC Inst/Educ Give yes
--- OUTSIDE RECORDS SUMMARY | 2016-11-04 21:33 | XMS REPORT | Clinical Summary ---
Author Author Admin, E Organization [employer] Address Unknown Phone Unavailable Allergies, Adverse Reactions, [...] Active Ahmet Carbajal MD Generalized anxiety disorder [place] Feeder well woman exam V72.31 Active Suzan [...] MD Health screening ICD-V70.0 Inactive Suzan Boo TEAM GUIDE Sinus tachycardia ICD-427.89 Inactive Suzan Boo TEAM GUIDE Smoker/tobacco use disorder-smoking cessation discussed ICD-305.1 Inactive [...] TABS 1 by mouth for yeast FLUCONAZOLE 70494825208 Active Suzan Boo APRN Active LACTULOSE 10 GM/15ML ORAL SOLN 30mL oral BID for IBS-C LACTULOSE 70248398625 Active Suzan Boo APRN Active BACTRIM DS 800-160 MG TABS 1 twice a day SULFAMETHOXAZOLE- TRIMETHOPRIM 47061142584 Active Suzan Boo APRN Active MUPIROCIN 2 % OINT apply twice a day MUPIROCIN 67311662070 Active Suzan Boo APRN Active TESSALON PERLES 100 MG CAPS 1 three times a day as needed for cough BENZONATATE 26195654508 No Longer Active Suzan Boo APRN Active BACTRIM DS 800-160 MG TABS 1 twice a day SULFAMETHOXAZOLE-TRIMETHOPRIM 90092443954 No Longer Active Suzan Boo APRN Active DIFLUCAN 150 MG TABS 1 by mouth for yeast FLUCONAZOLE 20403795793 No Longer Active Suzan Boo APRN Active EQ NICOTINE 21 MG/24HR TRANS PT24 Apply daily to stop smoking NICOTINE 72209390498 No Longer Active Suzan Boo APRN Active PREDNISONE 10 MG TABS 2 daily for 5 days then 1 daily for 5 days PREDNISONE 80064603767 No Longer Active Suzan Boo APRN Active LEVAQUIN 500 MG TABS 1 daily for infection LEVOFLOXACIN 06478120124 No Longer Active Suzan Boo APRN Active TROPICAMIDE 0.5 % OPHTH SOLN 1 drop PRN eye spasms TROPICAMIDE 83203886506 No Longer Active Suzan Boo APRN Active PREDNISONE 20 MG TAB 1 tablet daily x 4 days PREDNISONE 49001491473 No Longer Active Suzan Boo APRN Active ACETAMINOPHEN-CODEINE 120-12 MG/5ML SOLN 5 ml by mouth every 4-6 hours if needed for cough ACETAMINOPHEN-CODEINE 13899304835 No Longer Active Suzan Boo APRN Active KEFLEX 500 MG CAP 1 po qid CEPHALEXIN 91282003897 No Longer Active Suzan Boo APRN Active FLOVENT HFA 110 MCG/ACT AERO 2 puffs inhaled b.i.d. FLUTICASONE PROPIONATE HFA 16024651435 Active Renzo Thornton DO Active RISPERDAL 4 MG ORAL TABS 1 tab at bedtime RISPERIDONE 59420010286 Active Samantha Rothman RMA Active ZOFRAN 4 MG TABS 1 po q6hr PRN Nausea ONDANSETRON HCL No Longer Active Suzan Boo APRN Active FLUTICASONE PROPIONATE 50 MCG/ACT SUSP 2 sprays each nostril daily before bed. FLUTICASONE PROPIONATE 05184798067 No Longer Active Suzan Boo APRN Active ASPIRIN 325 MG ORAL TABS 1 tab q.d ASPIRIN 18869401067 No Longer Active Suzan Boo APRN Active HALOPERIDOL 10 MG ORAL TABS 1 tab q.d HALOPERIDOL 73922940807 No Longer Active Suzan Boo APRN Active GUAIFENESIN-CODEINE 100-10 MG/5ML SYRP 5ml every 4 to 6 hours as needed for cough GUAIFENESIN-CODEINE 22453126470 No Longer Active Suzan Boo APRN Active ZITHROMAX Z-EARNEST 250 MG TABS 2 today and then 1 daily for 4 days AZITHROMYCIN 99377319108 No Longer Active Suzan Boo APRN Active CLONAZEPAM 1 MG ORAL TABS 1 twice a day and an additional 1 tablet every other day as needed for pseudoseizures or anxiety CLONAZEPAM 50521108001 Active Suzan Boo APRN Active HYDROCODONE-ACETAMINOPHEN 5-325 MG ORAL TABS 1 tab two times a day HYDROCODONE-ACETAMINOPHEN 28201635292 No Longer Active Ahmet Carbajal MD Active LAMICTAL 100 MG ORAL TABS 1 tab 2 times qd. LAMOTRIGINE 80128616266 Active Ahmet Carbajal MD Active PREDNISONE 20 MG TABS 2 daily for 5 days then 1 daily for 5 days PREDNISONE 43082888702 No Longer Active Ahmet Carbajal MD Active FLUTICASONE PROPIONATE 50 MCG/ACT SUSP 1 to 2 sprays each nostril daily for allergies FLUTICASONE PROPIONATE 65638954750 Active Tila Nicolas Active BENADRYL 25 MG CAP 4 po at bedtime for insomnia DIPHENHYDRAMINE HCL 67875274107 No Longer Active Ahmet Carbajal MD Active ADVAIR DISKUS 250-50 MCG/DOSE INH AEPB 1 puff twice a day for asthma FLUTICASONE-SALMETEROL 97018139661 No Longer Active Ahmet Carbajal MD Active KLONOPIN 1 MG ORAL TABS 1 tab po TID CLONAZEPAM 05338967401 No Longer Active Ahmet Carbajal MD Active ABILIFY MAINTENA 400 MG IM SUSR 400mg injection every 26 days ARIPIPRAZOLE 26584829026 No Longer Active Ahmet Carbajal MD Active TRAMADOL HCL 50 MG TABS 1/2-1 tab TID PRN TRAMADOL HCL 98028903655 No Longer Active Ahmet Carbajal MD Active BACTRIM DS 800-160 MG TABS 1 twice a day SULFAMETHOXAZOLE- TRIMETHOPRIM 96493281956 No Longer Active Ahmet Carbajal MD Active PROAIR HFA 108 (90 BASE) MCG/ACT AERS 2 puffs four times a day as needed 2015 ALBUTEROL SULFATE 41551708279 Active Honey Hinton APRN Active MONISTAT 7 COMBO PACK WOODROW 100 & 2 MG-% (9GM) VAG KIT 1 applicatorful per vagina q pm x 7 MICONAZOLE NITRATE 79503460920 No Longer Active Ahmet Carbajal MD Active FLAGYL 500 MG TAB 1 tablet by mouth bid METRONIDAZOLE 51093657193 No Longer Active Ahmet Carbajal MD Active OXYCODONE HCL ER 10 MG ORAL T12A 1/2 tab by mouth every 4 hours prn OXYCODONE HCL 36628734217 No Longer Active Ahmet Carbajal MD Active METHYLPREDNISOLONE 4 MG ORAL TABS po daily METHYLPREDNISOLONE 46295055732 No Longer Active Ahmet Carbajal MD Active LEVOFLOXACIN 500 MG ORAL TABS po daily LEVOFLOXACIN 10077238070 No Longer Active Ahmet Carbajal MD Active VIIBRYD 10 MG ORAL TABS Take 1 tablet once a day VILAZODONE HCL 35596278692 No Longer Active Ahmet Carbajal MD Active TOPAMAX 50 MG ORAL TABS 1 tab twice daily TOPIRAMATE 93762741532 No Longer Active Ahmet Carbajal MD Active DICLOFENAC SODIUM 50 MG TBEC 1 tablet by mouth four times daily PRN Pain 2015 DICLOFENAC SODIUM 11563951486 No Longer Active Ahmet Carbajal MD Active ADZENYS XR-ODT 6.3 MG ORAL TBED 1 tab po daily for ADHD AMPHETAMINE 99867895805 No Longer Active Ahmet Carbajal MD Active CHANTIX 1 MG TABS 1 twice a day to help quit smoking VARENICLINE TARTRATE 54119066898 No Longer Active Dipika Burgos MD Active CHANTIX STARTING MONTH EARNEST 0.5 MG X 11 & 1 MG X 42 TABS take as directed 2015 VARENICLINE TARTRATE 36929192346 No Longer Active Dipika Burgos MD Active TESSALON PERLES 100 MG CAP 1 to 2 tablets by mouth 3 times daily as needed for cough BENZONATATE 14939666630 No Longer Active Luigi Mratínez APRN Active IMITREX 50 MG ORAL TABS 0.5 po x 1 PRN Headache. May repeat dose x 1 in 2 hours if needed SUMATRIPTAN SUCCINATE 98087474384 Active Ahmet Carbajal MD Active HYDROCODONE-ACETAMINOPHEN 5-325 MG TABS 1 to 2 four times a day as needed for pain use until can be seen by specialist HYDROCODONE- ACETAMINOPHEN 23812867698 No Longer Active Vishal Hui MD Active PROAIR HFA 108 (90 BASE) MCG/ACT AERS 2 puffs four times a day as needed 2015 ALBUTEROL SULFATE 38517740468 No Longer Active Vishal Hui MD Active PREDNISONE 20 MG TABS 2 daily for 5 days then 1 daily for 5 days PREDNISONE 61559726730 No Longer Active Vishal Hui MD Active ZITHROMAX Z-EARNEST 250 MG TABS 2 today and then 1 daily for 4 days AZITHROMYCIN 48963580585 No Longer Active Vishal Hui MD Active DICLOFENAC POTASSIUM TABS Take 1 tablet twice a day (pt. is not sure of the dose.) DICLOFENAC POTASSIUM TABS 59926159025 No Longer Active Vishal Hui MD Active VERAPAMIL HCL ER 120 MG ORAL CR-TABS Take 1 tablet by mouth twice a day. VERAPAMIL HCL 60298703323 Active Vishal Hui MD Active FLAGYL 500 MG TAB 1 tablet by mouth bid METRONIDAZOLE 46966602999 No Longer Active Vishal Hui MD Active VALIUM 5 MG TAB Take 1-2 tablets daily DIAZEPAM 23931226119 No Longer Active Fabiola Johnson APRN Active METOPROLOL TARTRATE 25 MG ORAL TABS 1/2 tablet twice daily for heart rate and blood pressure METOPROLOL TARTRATE 31985381007 No Longer Active Fabiola Johnson APRN Active MIRALAX ORAL POWD 17GMS DAILY IN WATER POLYETHYLENE GLYCOL 3350 78061558225 Active TAMARA Casey Active MIRALAX PACK 1 po qd PRN Constipation POLYETHYLENE GLYCOL 3350 98276886555 No Longer Active Ahmet Carbajal MD Active MINIPRESS 2 MG CAPS 4 cap po at night PRAZOSIN HCL 30476954283 No Longer Active Ahmet Carbajal MD Active PIROXICAM 20 MG CAPS 1 cap po qd PRN Pain PIROXICAM 39024376606 No Longer Active Ahmet Carbajal MD Active TRAMADOL HCL 50 MG TABS 1-2 po TID PRN Pain TRAMADOL HCL 47278812613 No Longer Active Ahmet Carbajal MD Active METOPROLOL TARTRATE 50 MG TAB 1 po bid METOPROLOL TARTRATE 47778464768 No Longer Active Ahmet Carbajal MD Active ABILIFY 15 MG ORAL TABS 1 tab daily ARIPIPRAZOLE 24476296321 No Longer Active Ahmet Carbajal MD Active PROZAC 20 MG ORAL CAPS 1 tab daily FLUOXETINE HCL 20559483826 No Longer Active Ahmet Carbajal MD Active AMBIEN 5 MG ORAL TABS 1 tab at bedtime ZOLPIDEM TARTRATE 87482398280 No Longer Active Ahmet Carbajal MD Active PREDNISONE 20 MG TAB 2 tabs daily for 4 days, 1 tab daily for 4 days, 1/2 tab daily for 4 days PREDNISONE 44362512073 No Longer Active Ahmet Carbajal MD Active KEFLEX 500 MG CAP 1 po TID x 10 days CEPHALEXIN 24948235161 No Longer Active Vishal Hui MD Active SAPHRIS 5 MG SUBL 1 po bid ASENAPINE MALEATE 18625594763 No Longer Active Jillina Frazell TEAM GUIDE Active LATUDA 80 MG TABS Take one by mouth daily LURASIDONE HCL 61559771530 No Longer Active Jillina Frazell TEAM GUIDE Active AMLODIPINE BESYLATE 5 MG TABS 1 tablet by mouth daily AMLODIPINE BESYLATE 59493003110 No Longer Active Jillina Frazell TEAM GUIDE Active AMITRIPTYLINE HCL 100 MG TAB one at hs AMITRIPTYLINE HCL 71329050153 No Longer Active Vishal Hui MD Active TRAZODONE HCL 100 MG TAB take 1 at bedtime TRAZODONE HCL 74960233651 No Longer Active Vishal Hui MD Active VYVANSE 40 MG CAPS 1 daily, LISDEXAMFETAMINE DIMESYLATE 01761572662 No Longer Active Vishal Hui MD Active IBUPROFEN 600 MG TAB 1 po TID PRN IBUPROFEN 57564487997 No Longer Active Vishla Hui MD Active PROZAC 20 MG CAP Take one by mouth daily FLUOXETINE HCL 90452261465 No Longer Active Vishal Hui MD Active BACTRIM DS 800-160 MG TABS 1 pill by mouth twice daily SULFAMETHOXAZOLE-TRIMETHOPRIM 12500504867 No Longer Active Sahara Rodriguez MD PhD Active DIFLUCAN 150 MG TAB 1 tablet by mouth daily FLUCONAZOLE 00373427387 No Longer Active Vishal Hui MD Active TIZANIDINE HCL 4 MG TABS 1 po q6hr PRN Muscle Spasm/Back Pain TIZANIDINE HCL 09178859455 Active Vishal Hui MD Active CLINDAMYCIN HCL 150 MG CAPS 1 four times a day CLINDAMYCIN HCL 07363184938 No Longer Active Neeraj Collins MD Active KEFLEX 500 MG ORAL CAPS 1 cap QID by mouth CEPHALEXIN 33849143381 No Longer Active Neeraj Collins MD Active DIFLUCAN 150 MG TABS 1 pill every other day x 2 doses FLUCONAZOLE 61669003184 No Longer Active Sahara Rodriguez MD PhD Active MELATONIN 3 MG CAPS 2 po q hs MELATONIN 92992565885 No Longer Active Sahara Rodriguez MD PhD Active MULTIVITAMINS CAPS Take one by mouth daily MULTIPLE VITAMIN 38846049502 No Longer Active Sahara Rodriguez MD PhD Active BACTRIM DS 800-160 MG TAB 1 tab by mouth twice daily TRIMETHOPRIM-SULFAMETHOXAZOLE 13831997190 No Longer Active Sahara Rodriguez MD PhD Active [facility] PROBIOTIC ORAL CHEW 2 daily po PROBIOTIC PRODUCT 54875249858 No Longer Active Sahara Rodriguez MD PhD Active BACTRIM DS 800-160 MG TABS 1 po BID x 7 days SULFAMETHOXAZOLE-TRIMETHOPRIM 27022379365 No Longer Active Vishal Hui MD Active CHANTIX STARTING MONTH EARNEST 0.5 MG X 11 & 1 MG X 42 TABS 0.5mg daily for 3 days , then 0.5mg BID for 4 days, then 1mg BID VARENICLINE TARTRATE 08906589525 No Longer Active TAMARA Gray Active VERAPAMIL HCL CR 120 MG TAB CR 1 po bid VERAPAMIL HCL 05661306293 No Longer Active Vishal Hui MD Active METOPROLOL SUCCINATE 50 MG TB24 1 tablet by mouth daily METOPROLOL SUCCINATE 22545947125 No Longer Active Vishal Hui MD Active SAPHRIS 10 MG SUBL 1 tab po bid ASENAPINE MALEATE 90472378595 No Longer Active Vishal Hui MD Active LISINOPRIL 20 MG TABS 1 tab po qd LISINOPRIL 89161562229 No Longer Active Vishla Hui MD Active LATUDA 20 MG TABS Take one by mouth daily LURASIDONE HCL 45258721019 No Longer Active Vishal Hui MD Active TRAZODONE HCL 50 MG TABS 1/2 tab po qd prn for anxiety TRAZODONE HCL 57301215057 No Longer Active Vishal Hui MD Active OMEPRAZOLE 20 MG TBEC 1 po q a.m. 30min prior to first food intake OMEPRAZOLE 27212905156 Active TAMARA Casey Active RANITIDINE HCL 150 MG CAPS 1 twice a day RANITIDINE HCL 50419961922 Active Luigi Martínez APRN Active LINZESS 290 MCG CAPS Take one by mouth daily LINACLOTIDE 81326933642 No Longer Active Vishal Hui MD Active SAPHRIS 5 MG SUBL 1 tab po qd ASENAPINE MALEATE 47947937902 No Longer Active Vishal Hui MD Active ZALEPLON 10 MG CAPS 1 cap po every other night ZALEPLON 68737436088 No Longer Active Vishal uHi MD Active LYRICA 50 MG CAPS 1 tab po TID PREGABALIN 03815939821 No Longer Active Vishal Hui MD Active LORATADINE 10 MG TABS 1 tab po qd LORATADINE 74522809081 No Longer Active Vishal Hui MD Active VERAPAMIL HCL ER 180 MG CR-TABS 1 tab po bid VERAPAMIL HCL 75981101670 No Longer Active Vishal Hui MD Active MIRALAX POWD 1 capfull once daily POLYETHYLENE GLYCOL 3350 65087748283 No Longer Active Vishal Hui MD Active PREDNISONE 20 MG TABS 1 tab po qd PREDNISONE 49052479085 No Longer Active Renzo Thornton DO Active LEVOFLOXACIN 500 MG TABS 1 tab po qd LEVOFLOXACIN 49236961223 No Longer Active Renzo Thornton DO Active BUSPIRONE HCL 15 MG TABS 1 tab po TID BUSPIRONE HCL 98843074769 No Longer Active Renzo Thornton DO Active BENZTROPINE MESYLATE 1 MG TABS 1 tab po qd BENZTROPINE MESYLATE 40451883294 No Longer Active Renzo Thornton DO Active ATENOLOL 25 MG TABS 1 tab po qd ATENOLOL 88902883521 No Longer Active Renzo Thornton DO Active ESCITALOPRAM OXALATE 20 MG TABS 1 tab po qd ESCITALOPRAM OXALATE 13439557595 No Longer Active Renzo Thornton DO Active ADVAIR DISKUS 250-50 MCG/DOSE AEPB 1 puff BID FLUTICASONE-SALMETEROL 48453882493 No Longer Active Renzo Thornton DO Active PREDNISONE 20 MG TAB 2 tabs daily for 3 days, 1 tab daily for 3 days, 1/2 tab daily for 2 days PREDNISONE 72813259989 No Longer Active Vishal Hui MD Active CEFDINIR 300 MG CAPS by mouth twice a day CEFDINIR 04115703173 No Longer Active Vishal Hui MD Active LANSOPRAZOLE 30 MG CPDR 1 cap po qd LANSOPRAZOLE 54857471278 No Longer Active Vishal Hui MD Active BACLOFEN 20 MG TABS 1 tab po tid BACLOFEN 93001803011 No Longer Active Vishal Hui MD Active ADVAIR DISKUS 250-50 MCG/DOSE AEPB 1 puff BID ADVAIR DISKUS 250-50 MCG/DOSE AEPB FLUTICASONE-SALMETEROL Inactive ESCITALOPRAM OXALATE 20 MG TABS 1 tab po qd ESCITALOPRAM OXALATE 20 MG TABS 789511 ESCITALOPRAM OXALATE Inactive ATENOLOL 25 MG TABS 1 tab po qd ATENOLOL 25 MG TABS 132716 ATENOLOL Inactive BENZTROPINE MESYLATE 1 MG TABS 1 tab po qd BENZTROPINE MESYLATE 1 MG TABS 012706 BENZTROPINE MESYLATE Inactive BUSPIRONE HCL 15 MG TABS 1 tab po TID BUSPIRONE HCL 15 MG TABS 599930 BUSPIRONE HCL Inactive LEVOFLOXACIN 500 MG TABS 1 tab po qd LEVOFLOXACIN 500 MG TABS 621870 LEVOFLOXACIN Inactive PREDNISONE 20 MG TABS 1 tab po qd PREDNISONE 20 MG TABS 805904 PREDNISONE Inactive MIRALAX POWD 1 capfull once daily MIRALAX POWD 175052 POLYETHYLENE GLYCOL 3350 Inactive VERAPAMIL HCL ER 180 MG CR-TABS 1 tab po bid VERAPAMIL HCL ER 180 MG CR-TABS VERAPAMIL HCL Inactive LORATADINE 10 MG TABS 1 tab po qd LORATADINE 10 MG TABS 499875 LORATADINE Inactive LYRICA 50 MG CAPS 1 tab po TID LYRICA 50 MG CAPS PREGABALIN Inactive ZALEPLON 10 MG CAPS 1 cap po every other night ZALEPLON 10 MG CAPS 352711 ZALEPLON Inactive SAPHRIS 5 MG SUBL 1 tab po qd SAPHRIS 5 MG SUBL ASENAPINE MALEATE Inactive TRAZODONE HCL 50 MG TABS 1/2 tab po qd prn for anxiety TRAZODONE HCL 50 MG TABS 815164 TRAZODONE HCL Inactive LATUDA 20 MG TABS Take one by mouth daily LATUDA 20 MG TABS LURASIDONE HCL Inactive LISINOPRIL 20 MG TABS 1 tab po qd LISINOPRIL 20 MG TABS 831820 LISINOPRIL Inactive SAPHRIS 10 MG SUBL 1 [...] twice daily BACTRIM DS 800-160 MG TAB 921723 TRIMETHOPRIM-SULFAMETHOXAZOLE Inactive MULTIVITAMINS CAPS Take one by mouth daily MULTIVITAMINS CAPS MULTIPLE VITAMIN Inactive MELATONIN 3 MG CAPS 2 po q hs MELATONIN 3 MG CAPS 19950526 MELATONIN Inactive KEFLEX 500 MG ORAL CAPS 1 cap QID by mouth KEFLEX 500 MG ORAL CAPS 262929 CEPHALEXIN Inactive CLINDAMYCIN HCL 150 MG CAPS 1 four times a day CLINDAMYCIN HCL 150 MG CAPS 821440 CLINDAMYCIN HCL Inactive DIFLUCAN 150 MG TAB 1 tablet by mouth daily DIFLUCAN 150 MG TAB 299167 FLUCONAZOLE Inactive PROZAC 20 MG CAP Take one by mouth daily PROZAC 20 MG CAP 083058 FLUOXETINE HCL Inactive IBUPROFEN 600 MG TAB 1 po TID PRN IBUPROFEN 600 MG TAB 717308 IBUPROFEN Inactive VYVANSE 40 MG CAPS 1 daily, VYVANSE 40 MG CAPS LISDEXAMFETAMINE DIMESYLATE Inactive TRAZODONE HCL 100 MG TAB take 1 at bedtime TRAZODONE HCL 100 MG TAB 464735 TRAZODONE HCL Inactive AMITRIPTYLINE HCL 100 MG TAB one at hs AMITRIPTYLINE HCL 100 MG TAB 738407 AMITRIPTYLINE HCL Inactive AMLODIPINE BESYLATE 5 MG TABS 1 tablet by mouth daily AMLODIPINE BESYLATE 5 MG TABS 485180 AMLODIPINE BESYLATE Inactive LATUDA 80 MG TABS Take one by mouth daily LATUDA 80 MG TABS LURASIDONE HCL Inactive SAPHRIS 5 MG SUBL 1 po bid SAPHRIS 5 MG SUBL ASENAPINE MALEATE Inactive PREDNISONE 20 MG TAB 2 tabs daily for 4 days, 1 tab daily for 4 days, 1/2 tab daily for 4 days PREDNISONE 20 MG TAB 134799 PREDNISONE Inactive AMBIEN 5 MG ORAL TABS 1 tab at bedtime AMBIEN 5 MG ORAL TABS 757843 ZOLPIDEM TARTRATE Inactive PROZAC 20 MG ORAL CAPS 1 tab daily PROZAC 20 MG ORAL CAPS 045862 FLUOXETINE HCL Inactive ABILIFY 15 MG ORAL TABS 1 tab daily ABILIFY 15 MG ORAL TABS 217419 ARIPIPRAZOLE Inactive METOPROLOL TARTRATE 50 MG TAB 1 po bid METOPROLOL TARTRATE 50 MG TAB 882965 METOPROLOL TARTRATE Inactive TRAMADOL HCL 50 MG TABS 1-2 po TID PRN Pain TRAMADOL HCL 50 MG TABS 802454 TRAMADOL HCL Inactive PIROXICAM 20 MG CAPS 1 cap po qd PRN Pain PIROXICAM 20 MG CAPS 242389 PIROXICAM Inactive MINIPRESS 2 MG CAPS 4 cap po at night MINIPRESS 2 MG CAPS 952209 PRAZOSIN HCL Inactive MIRALAX PACK 1 po qd PRN Constipation MIRALAX PACK 622539 POLYETHYLENE GLYCOL 3350 Inactive METOPROLOL TARTRATE 25 MG ORAL TABS 1/2 tablet twice daily for heart rate and blood pressure METOPROLOL TARTRATE 25 MG ORAL TABS 432396 METOPROLOL TARTRATE Inactive VALIUM 5 MG TAB Take 1-2 tablets daily VALIUM 5 MG TAB 010977 DIAZEPAM Inactive FLAGYL 500 MG TAB 1 tablet by mouth bid FLAGYL 500 MG TAB 032887 METRONIDAZOLE Inactive DICLOFENAC POTASSIUM TABS Take 1 tablet twice a day (pt. is not sure of the dose.) DICLOFENAC POTASSIUM TABS DICLOFENAC POTASSIUM TABS Inactive ZITHROMAX Z-EARNEST 250 MG TABS 2 today and then 1 daily for 4 days ZITHROMAX Z-EARNEST 250 MG TABS 0235504 AZITHROMYCIN Inactive PREDNISONE 20 MG TABS 2 daily for 5 days then 1 daily for 5 days PREDNISONE 20 MG TABS 652373 PREDNISONE Inactive PROAIR HFA 108 (90 BASE) MCG/ACT AERS 2 puffs four times a day as needed 2015 PROAIR HFA 108 (90 BASE) MCG/ACT AERS ALBUTEROL SULFATE Inactive HYDROCODONE-ACETAMINOPHEN 5-325 MG TABS 1 to 2 four times a day as needed for pain use until can be seen by specialist HYDROCODONE- ACETAMINOPHEN 5-325 MG TABS 177062 HYDROCODONE-ACETAMINOPHEN Inactive TESSALON PERLES 100 MG CAP 1 to 2 tablets by mouth 3 times daily as needed for cough TESSALON PERLES 100 MG CAP 527574 BENZONATATE Inactive CHANTIX STARTING MONTH EARNEST 0.5 [...] Pain 2015 DICLOFENAC SODIUM 50 MG TBEC 542693 DICLOFENAC SODIUM Inactive TOPAMAX 50 MG ORAL TABS 1 tab twice daily TOPAMAX 50 MG ORAL TABS 311587 TOPIRAMATE Inactive VIIBRYD 10 MG ORAL TABS Take 1 tablet once a day VIIBRYD 10 MG ORAL TABS VILAZODONE HCL Inactive LEVOFLOXACIN 500 MG ORAL TABS po daily LEVOFLOXACIN 500 MG ORAL TABS 099868 LEVOFLOXACIN Inactive METHYLPREDNISOLONE 4 MG ORAL TABS po daily METHYLPREDNISOLONE 4 MG ORAL TABS 633228 METHYLPREDNISOLONE Inactive OXYCODONE HCL ER 10 MG ORAL T12A 1/2 tab by mouth every 4 hours prn OXYCODONE HCL ER 10 MG ORAL T12A OXYCODONE HCL Inactive FLAGYL 500 MG TAB 1 tablet by mouth bid FLAGYL 500 MG TAB 613322 METRONIDAZOLE Inactive MONISTAT 7 COMBO PACK WOODROW 100 & 2 MG-% (9GM) VAG KIT 1 applicatorful per vagina q pm x 7 MONISTAT 7 COMBO PACK WOODROW 100 & 2 MG-% (9GM) VAG KIT MICONAZOLE NITRATE Inactive BACTRIM DS 800-160 MG TABS 1 twice a day BACTRIM DS 800-160 MG TABS 718801 SULFAMETHOXAZOLE-TRIMETHOPRIM Inactive TRAMADOL HCL 50 MG TABS 1/2-1 tab TID PRN TRAMADOL HCL 50 MG TABS 495761 TRAMADOL HCL Inactive ABILIFY MAINTENA 400 MG IM SUSR 400mg injection every 26 days KENN MAINTENA 400 MG IM SUSR ARIPIPRAZOLE Inactive KLONOPIN 1 MG ORAL TABS 1 tab po TID KLONOPIN 1 MG ORAL TABS 047335 CLONAZEPAM Inactive ADVAIR DISKUS 250-50 MCG/DOSE INH AEPB 1 puff twice a day for asthma ADVAIR DISKUS 250-50 MCG/DOSE INH AEPB FLUTICASONE- SALMETEROL Inactive BENADRYL 25 MG CAP 4 po at bedtime for insomnia BENADRYL 25 MG CAP DIPHENHYDRAMINE HCL Inactive PREDNISONE 20 MG TABS 2 daily for 5 days then 1 daily for 5 days PREDNISONE 20 MG TABS 871526 PREDNISONE Inactive HYDROCODONE-ACETAMINOPHEN 5-325 MG ORAL TABS 1 tab two times a day HYDROCODONE-ACETAMINOPHEN 5-325 MG ORAL TABS 959132 HYDROCODONE-ACETAMINOPHEN Inactive ZITHROMAX Z-EARNEST 250 MG TABS 2 today and then 1 daily for 4 days ZITHROMAX Z-EARNEST 250 MG TABS 4002597 AZITHROMYCIN Inactive GUAIFENESIN-CODEINE 100-10 MG/5ML SYRP 5ml every 4 to 6 hours as needed for cough GUAIFENESIN-CODEINE 100-10 MG/5ML SYRP 510251 GUAIFENESIN-CODEINE Inactive HALOPERIDOL 10 MG ORAL TABS 1 tab q.d HALOPERIDOL 10 MG ORAL TABS 029079 HALOPERIDOL Inactive ASPIRIN 325 MG ORAL TABS 1 tab q.d ASPIRIN 325 MG ORAL TABS 055718 ASPIRIN Inactive FLUTICASONE PROPIONATE 50 MCG/ACT SUSP 2 sprays each nostril daily before bed. FLUTICASONE PROPIONATE 50 MCG/ACT SUSP 1605871 FLUTICASONE PROPIONATE Inactive ZOFRAN 4 MG TABS 1 po q6hr PRN Nausea ZOFRAN 4 MG TABS 317324 ONDANSETRON HCL Inactive KEFLEX 500 MG CAP 1 po qid KEFLEX 500 MG CAP 257848 CEPHALEXIN Inactive ACETAMINOPHEN-CODEINE 120-12 MG/5ML SOLN 5 ml by mouth every 4-6 hours if needed for cough ACETAMINOPHEN-CODEINE 120-12 MG/5ML SOLN 715003 ACETAMINOPHEN-CODEINE Inactive PREDNISONE 20 MG TAB 1 tablet daily x 4 days PREDNISONE 20 MG TAB 705296 PREDNISONE Inactive TROPICAMIDE 0.5 % OPHTH SOLN 1 drop PRN eye spasms TROPICAMIDE 0.5 % OPHTH SOLN 947648 TROPICAMIDE Inactive LEVAQUIN 500 MG TABS 1 daily for infection LEVAQUIN 500 MG TABS 125695 LEVOFLOXACIN Inactive PREDNISONE 10 MG TABS 2 daily for 5 days then 1 daily for 5 days PREDNISONE 10 MG TABS 717810 PREDNISONE Inactive EQ NICOTINE 21 MG/24HR TRANS [...] for 2 days PREDNISONE 20 MG TAB 085591 PREDNISONE Inactive BACTRIM DS 800-160 MG TABS 1 po BID x 7 days BACTRIM DS 800-160 MG TABS 19820521 SULFAMETHOXAZOLE-TRIMETHOPRIM Inactive DIFLUCAN 150 MG TABS 1 pill every other day x 2 doses DIFLUCAN 150 MG TABS 221144 FLUCONAZOLE Inactive BACTRIM DS 800-160 MG TABS 1 pill by mouth twice daily BACTRIM DS 800-160 MG TABS 613723 SULFAMETHOXAZOLE-TRIMETHOPRIM Inactive KEFLEX 500 MG CAP 1 po TID x 10 days KEFLEX 500 MG CAP 068900 CEPHALEXIN Inactive Advance Directives Directive Description Start [...] % 11.0-15.0 platelet count 443 THOUSAND/UL 10*3/mm3 353-331 6813/03/01 mean platelet volume 8.2 fL 7.5-12.5 leukocyte [...] % 11.0-15.0 platelet count 349 THOUSAND/UL 10*3/mm3 277-748 7402/04/12 mean platelet volume 8.4 fL 7.5-12.5 Lab [...] 369 10^3/MM^3 10*3/mm3 142-424 Lab Report: Chlamydia/GC [id number] - Lab chlamydia DNA probe NOT DETECTED NOT DETECTED Lab Report: Chlamydia/GC [id number] - Microbiology Neisseria gonorrhoeae DNA probe NOT DETECTED NOT DETECTED Lab Report: Chlamydia/GC [id number], Urinalysis, Complete, with Reflex ... - Lab chlamydia DNA probe NOT DETECTED NOT DETECTED Lab Report: Chlamydia/GC [id number], Urinalysis, Complete, with Reflex ... - Microbiology Neisseria gonorrhoeae DNA probe NOT DETECTED NOT DETECTED Lab Report: Chlamydia/GC [id number]/[id number], Urinalysis, Complete, with Reflex ... - Urinalysis microalbumin/total urine volume 2 mg/L Units converted. See lab report for original value. microalbumin/creatinine ratio, urine 9 MCG/MG CREAT mg/L <30 Lab Report: Comp. Metabolic Panel - Chemistry sodium, serum 142 mmol/L 802-025 8847/06/08 carbon dioxide, venous blood 27.6 mmol/L 21.0-32.0 potassium, serum 4.0 mmol/L 3.5-5.2 chloride, serum 105 mmol/L 98-107 blood glucose 95 mg/dL 65-110 urea nitrogen, blood 8 mg/dL 7-18 creatinine, serum 0.75 mg/dL 0.55-1.30 alanine aminotransferase (SGPT), serum 49 U/L -78 aspartate aminotransferase (SGOT), serum 28 U/L 15-37 calcium, serum 9.4 mg/dL 8.5-10.1 bilirubin, serum, total 0.30 mg/dL 0.00-1.00 sodium, serum 140 mmol/L 369-754 3389/08/08 carbon dioxide, venous blood 33.7 mmol/L 21.0-32.0 [...] mg/dL Encounters Code Encounter Date Provider Facility CPT-59125 Level 4 Est. Patient 10:49:34 MILKA Boo [facility] CPT-77064 Level 3 Est. Patient 10:00:25 CDT Suzan Boo [facility] CPT-09371 Level 3 Est. Patient 10:29:30 CDT Suzan Boo [facility] CPT-57123 Level 3 Est. Patient 11:04:38 CDT Renzo Thornton [facility]-58807 Level 3 Est. Patient 11:15:58 CADASTRAL SURVEYOR Renzo Jenn Thornton [facility] CPT-72940 Level 3 Est. Patient 15:28:23 CADASTRAL SURVEYOR Suzan Boo [facility] CPT-22578 Level 4 Est. Patient 10:20:54 CADASTRAL SURVEYOR Suzan Boo [facility] CPT-52976 Level 3 Est. Patient 11:47:37 CADASTRAL SURVEYOR Ahmet Carbajal MD [facility]-68383 Level 3 Est. Patient 10:40:11 CADASTRAL SURVEYOR Ahmet Carbajal MD [facility]-90461 Level 3 Est. Patient 15:07:06 CADASTRAL SURVEYOR Neeraj Collins MD [facility] CPT-57905 Level 4 Est. Patient 14:45:00 CADASTRAL SURVEYOR Ahmet Carbajal MD [facility] CPT-80015 Level 3 Est. Patient 13:59:59 CDT Luigi Martínez [facility] CPT-17706 Level 3 Est. Patient 18:18:53 CDT Neeraj Collins MD [facility] CPT-21137 Level 3 Est. Patient 15:50:44 CDT Vishal Hui MD [facility] CPT-64166 Level 3 Est. Patient 11:36:17 CDT Ahmet Carbajal MD [facility] CPT-29970 Level 3 Est. Patient 13:29:16 CDT Vishal Hui MD [facility] CPT-63853 Level 3 Est. Patient 14:27:52 CDT Neeraj Collins MD [facility] CPT-93893 Level 3 Est. Patient 08:56:03 CDT Luigi Martínez [facility] CPT-54707 Level 4 Est. Patient 12:11:48 CDT Fabiola Johnson [facility] CPT-22042 Level 3 New Patient 16:53:37 CDT Albert Caldera MD [facility] CPT-18048 Level 3 Est. Patient 11:25:49 CDT Renzo Thornton DO [facility] CPT-47076 Level 3 Est. Patient 15:22:01 CDT Ahmet Carbajal MD [facility] CPT-23621 Level 4 Est. Patient 09:00:51 CADASTRAL SURVEYOR Vishal Hui MD [facility] CPT-59092 Level 3 Est. Patient 11:37:33 CADASTRAL SURVEYOR Vishal Hui MD [facility] CPT-49017 Level 3 Est. Patient 08:41:09 CADASTRAL SURVEYOR Vishal Hui MD [facility] CPT-43243 Level 4 Est. Patient 10:19:35 CADASTRAL SURVEYOR Vishal Hui MD [facility] CPT-58787 Level 3 Est. Patient 13:35:45 CDT Vishal Hui MD [facility] CPT-08481 Level 4 Est. Patient 10:08:37 CDT Vishal Hui MD [facility] CPT-67949 Level 3 Est. Patient 11:22:10 CDT Vishal Hui MD [facility] CPT-26865 Level 3 Est. Patient 11:03:32 CDT Sahara oRdriguez MD, PhD [facility]-49145 Level 3 Est. Patient 09:41:35 CDT Vishal Hui MD [facility]-82668 Level 3 Est. Patient 12:00:41 CDT Neeraj Collins MD [facility] CPT-64094 Level 3 Est. Patient 09:16:24 CDT Vishal Hui MD [facility] CPT-44369 Level 4 Est. Patient 13:59:09 CDT Neeraj Collins MD [facility] CPT-46421 Level 3 Est. Patient 15:19:43 CDT Renzo Thornton [facility] CPT-07259 Level 3 Est. Patient 18:10:26 CDT Sahara Rodriguez MD PhD [facility] CPT-26782 Level 3 Est. Patient 14:49:50 CDT Vishal Hui MD [facility] CPT-57564 Level 4 Est. Patient 18:41:46 CDT Neeraj Collins MD [facility] CPT-46283 Level 4 Est. Patient 09:18:38 CADASTRAL SURVEYOR Vishal Hui MD [facility] CPT-52993 Level 3 Est. Patient 14:43:55 CADASTRAL SURVEYOR Vishal Hui MD [facility] CPT-37565 Level 3 Est. Patient 15:26:33 CADASTRAL SURVEYOR Sahara Rodriguez MD [facility] CPT-38690 Level 3 Est. Patient 10:32:14 CADASTRAL SURVEYOR Vishal Hui MD [facility] CPT-22228 Level 3 Est. Patient 15:12:52 CADASTRAL SURVEYOR Vishal Hui MD [facility] CPT-46414 Level 4 Est. Patient 09:19:27 CDT Vishal Hui MD [facility] CPT-90281 Level 3 Est. Patient 15:53:00 CDT Renzo Thornton [facility] CPT-89641 Level 3 Est. Patient 15:50:30 CDT Renzo Thornton [facility] CPT-20568 Level 3 Est. Patient 16:55:24 CDT Vishal Hui MD [facility] Procedures Code Procedure Name Date Entry Date Standard Description CPT-44025 Venipuncture Draw Fee 08:41:12 CDT CPT-89594 Abd compl w upright - XRAY USE ONLY 10:27:59 CDT 06/28 CPT-56060 Smoking Cessation counseling 11:15:58 CADASTRAL SURVEYOR CPT-G0439 MC Subsequent Annual Wellness Exam 09:30:58 CADASTRAL SURVEYOR CPT-54278 TSH - LAB USE ONLY 08:50:26 CADASTRAL SURVEYOR CPT-32729 CBC - LAB USE ONLY 08:50:26 CADASTRAL SURVEYOR CPT-61848 Venipuncture Draw Fee 08:50:26 CADASTRAL SURVEYOR CPT-86671 Abx/Therapy Injection 17:34:30 CADASTRAL SURVEYOR CPT-83064 Nexplanon Removal with Reinsertion 14:09:32 CDT CPT-J7307 Nexplanon (Implant) 14:09:32 CDT CPT-OV Office Visit 14:09:32 CDT CPT-84322 UA w micro - LAB USE ONLY 16:21:13 CDT CPT-07374 Wet Mount - LAB USE ONLY 16:21:13 CDT CPT-69015 First Vx - Ix admin for Medicare patients 14:37:47 CDT CPT-52251 Fluzone Preservative Free Intramuscular Suspension 14:37 :47 CDT CPT-86914 Abx/Therapy Injection 13:54:22 CDT CPT-75762 Abx/Therapy Injection 08:47:09 CDT CPT-39962 Abx/Therapy Injection 13:29:56 CDT CPT-95639 Abx/Therapy Injection 08:36:16 CDT CPT-34577 Wet Mount - LAB USE ONLY 17:44:58 CDT CPT-35457 UA w micro - LAB USE ONLY 17:44:58 CDT CPT-39273 CMP - LAB USE ONLY 17:44:58 CDT CPT-30960 Venipuncture Draw Fee 17:44:58 CDT CPT-80159 Cervical Min 4V - XRAY USE ONLY 09:01:40 CDT CPT-79884 Chest 2V Frontal and Lat - XRAY USE ONLY 11:06:31 CDT CPT-28164 EKG Trac and Interp - XRAY USE ONLY 11:31:43 CDT 08/26 CPT-J3420 Vitamin B12 1000mcg (Cyanocobalamin) 08:10:26 CADASTRAL SURVEYOR 04/12 CPT-38507 Abx/Therapy Injection 08:10:26 CADASTRAL SURVEYOR CPT-G0438 Initial Annual Wellness Exam 19:01:01 CADASTRAL SURVEYOR CPT-J3420 Vitamin B12 1000mcg (Cyanocobalamin) 16:57:46 CDT 08/14 CPT-07844 Recombivax HB Injection Suspension 5 MCG/0.5ML 08:37:50 CADASTRAL SURVEYOR CPT-48427 Immunization Single Admin 08:37:50 CADASTRAL SURVEYOR CPT-J3420 Vitamin B12 1000mcg (Cyanocobalamin) 08:32:16 CADASTRAL SURVEYOR 03/11 CPT-51735 Abx/Therapy Injection 08:32:16 CADASTRAL SURVEYOR CPT-39626 Chest 2V Frontal and Lat 11:46:38 CADASTRAL SURVEYOR CPT-11346 Venipuncture Draw Fee 09:12:45 CADASTRAL SURVEYOR CPT-J3420 Vitamin B12 1000mcg (Cyanocobalamin) 08:50:15 CADASTRAL SURVEYOR 02/08 CPT-39658 Abx/Therapy Injection 08:50:15 CADASTRAL SURVEYOR CPT-Cryo Cryotherapy 10:19:35 CADASTRAL SURVEYOR CPT-000 Give Appropriate Flu Vaccine 09:22:16 CDT CPT-J3420 Vitamin B12 1000mcg (Cyanocobalamin) 19:08:57 CDT 01/11 CPT-71535 Abx/Therapy Injection 19:08:57 CDT CPT-J3420 Vitamin B12 1000mcg (Cyanocobalamin) 08:19:08 CDT 12/11 CPT-20464 Abx/Therapy Injection 08:19:08 CDT CPT-J3420 Vitamin B12 1000mcg (Cyanocobalamin) 14:48:00 CDT 11/09 CPT-27170 Abx/Therapy Injection 14:47:59 CDT CPT-J3420 Vitamin B12 1000mcg (Cyanocobalamin) 08:34:04 CDT 10/09 CPT-08734 Abx/Therapy Injection 08:34:04 CDT CPT-J3420 Vitamin B12 1000mcg (Cyanocobalamin) 09:18:52 CDT 09/11 CPT-68089 Abx/Therapy Injection 09:18:52 CDT CPT-J3420 Vitamin B12 1000mcg (Cyanocobalamin) 08:35:44 CDT 09/04 CPT-87933 Abx/Therapy Injection 08:35:44 CDT CPT-82168 Immunization Single Admin 11:07:16 CDT CPT-55851 Hepatitis B adult IM 11:07:16 CDT CPT-J3420 Vitamin B12 1000mcg (Cyanocobalamin) 11:00:49 CDT 08/28 CPT-J1040 Depo Medrol 80 mg (Methyl Prednisolone Acetate) 11:00: 49 CDT CPT-71543 Abx/Therapy Injection 11:00:49 CDT CPT-J1040 Depo Medrol 80 mg (Methyl Prednisolone Acetate) 09:16: 23 CDT CPT-J3420 Vitamin B12 1000mcg (Cyanocobalamin) 08:27:05 CDT 08/20 CPT-37435 Abx/Therapy Injection 08:27:05 CDT CPT-28259 Recombivax HB Injection Suspension 5 MCG/0.5ML 10:00:41 CDT CPT-90165 Administration single or combination vaccine inc oral 10 :00:41 CDT CPT-07637 Sono transvag pelvis non OB uterus ovaries cervix 16:36: 57 CDT CPT-10448 LS spine comp w obliq 09:50:55 CADASTRAL SURVEYOR CPT-56793 Abd compl w upright 09:50:55 CADASTRAL SURVEYOR CPT-J1100 Decadron 4mg (Dexamethasone) 15:51:24 CADASTRAL SURVEYOR CPT-J1030 Depo Medrol 40 mg (Methyl Prednisolone Acetate) 15:51: 24 CADASTRAL SURVEYOR CPT-82927 Abx/Therapy Injection 15:51:24 CADASTRAL SURVEYOR CPT-J1100 Decadron 4mg (Dexamethasone) 15:26:33 CADASTRAL SURVEYOR CPT-J1030 Depo Medrol 40 mg (Methyl Prednisolone Acetate) 15:26: 33 CADASTRAL SURVEYOR CPT-48700 Sono retroperitoneal complete kidneys and bladder 17:15: 30 CDT CPT-65135 Abd compl w upright 16:09:25 CDT CPT-J1100 Decadron 8mg (Dexamethasone) 17:07:57 CDT CPT-71803 Abx/Therapy Injection 17:07:57 CDT CPT-J1100 Decadron 8mg (Dexamethasone) 16:55:24 CDT CPT-71710 Chest 2V Frontal and Lat 16:32:44 CDT
--- OUTSIDE RECORDS SUMMARY | 2016-11-04 21:34 | XMS REPORT | Clinical Summary ---
Author Author Admin, E Organization [facility] Address Unknown Phone Unavailable Allergies, Adverse [...] ORAL CHEW 2 daily po PROBIOTIC PRODUCT 27305710246 Active Jillina Frazell TIRE BUFFER Active IBUPROFEN 600 MG TAB 1 po TID PRN IBUPROFEN 46565669747 Active Jillina Frazell TIRE BUFFER Active BACTRIM DS 800-160 MG TAB 1 tab by mouth twice daily TRIMETHOPRIM-SULFAMETHOXAZOLE 55782497162 Active Neeraj Collins MD Active BACTRIM DS 800-160 MG TABS 1 po BID x 7 days SULFAMETHOXAZOLE-TRIMETHOPRIM 77807094790 No Longer Active Vishal Hui MD Active CHANTIX STARTING MONTH EARNEST 0.5 MG X 11 & 1 MG X 42 TABS 0.5mg daily for 3 days , then 0.5mg BID for 4 days, then 1mg BID VARENICLINE TARTRATE 20537200760 No Longer Active TAMARA Gray Active METOPROLOL TARTRATE 50 MG TAB 1 po bid METOPROLOL TARTRATE 86897150852 Active Vishal Hui MD Active TRAZODONE HCL 100 MG TAB take 1 at bedtime TRAZODONE HCL 63747134498 Active Vishal Hui MD Active AMLODIPINE BESYLATE 5 MG TABS 1 tablet by mouth daily AMLODIPINE BESYLATE 59765796117 Active Vishal Hui MD Active VERAPAMIL HCL CR 120 MG TAB CR 1 po bid VERAPAMIL HCL 41720454238 No Longer Active Vishal Hui MD Active METOPROLOL SUCCINATE 50 MG TB24 1 tablet by mouth daily METOPROLOL SUCCINATE 78698960194 No Longer Active Vishal Hui MD Active TRAMADOL HCL 50 MG TABS 1-2 po TID PRN Pain TRAMADOL HCL 23265760147 Active Vishal Hui MD Active SAPHRIS 5 MG SUBL 1 po bid ASENAPINE MALEATE 58351908169 Active Vishal Hui MD Active SAPHRIS 10 MG SUBL 1 tab po bid ASENAPINE MALEATE 48879260213 No Longer Active Vishal Hui MD Active LISINOPRIL 20 MG TABS 1 tab po qd LISINOPRIL 05882198655 No Longer Active Vishal Hui MD Active BENADRYL 25 MG CAP 2 po tid prn anxiety DIPHENHYDRAMINE HCL 49598132535 Active Vishal Hui MD Active LATUDA 80 MG TABS Take one by mouth daily LURASIDONE HCL 05379850254 Active Vishal Hui MD Active LATUDA 20 MG TABS Take one by mouth daily LURASIDONE HCL 12299275257 No Longer Active Vishal Hui MD Active TRAZODONE HCL 50 MG TABS 1/2 tab po qd prn for anxiety TRAZODONE HCL 20078635536 No Longer Active Vishal Hui MD Active PIROXICAM 20 MG CAPS 1 cap po qd PRN Pain PIROXICAM 60936195811 Active Vishal Hui MD Active OMEPRAZOLE 20 MG TBEC 1 po q a.m. 30min prior to first food intake OMEPRAZOLE 35432298020 Active Vishal Hui MD Active RANITIDINE HCL 150 MG CAPS 1 twice a day RANITIDINE HCL 19706180056 Active Vishal Hui MD Active MULTIVITAMINS CAPS Take one by mouth daily MULTIPLE VITAMIN 33949248194 Active Vishal Hui MD Active MELATONIN 3 MG CAPS 2 po q hs MELATONIN 67699955516 Active Vishal Hui MD Active PROZAC 20 MG CAP Take one by mouth daily FLUOXETINE HCL 33726838210 Active Vishal Hui MD Active LINZESS 290 MCG CAPS Take one by mouth daily LINACLOTIDE 64614456820 Active Vishal Hui MD Active SAPHRIS 5 MG SUBL 1 tab po qd ASENAPINE MALEATE 70082842872 No Longer Active Vishal Hui MD Active ZALEPLON 10 MG CAPS 1 cap po every other night ZALEPLON 08187014653 No Longer Active Vishal Hui MD Active LYRICA 50 MG CAPS 1 tab po TID PREGABALIN 16336981074 No Longer Active Vishal Hui MD Active LORATADINE 10 MG TABS 1 tab po qd LORATADINE 79731225115 No Longer Active Vishal Hui MD Active VERAPAMIL HCL ER 180 MG CR-TABS 1 tab po bid VERAPAMIL HCL 81639842651 No Longer Active Vishal Hui MD Active MIRALAX POWD 1 capfull once daily POLYETHYLENE GLYCOL 3350 05472398462 No Longer Active Vishal Hui MD Active PREDNISONE 20 MG TABS 1 tab po qd PREDNISONE 21137468228 No Longer Active Renzo Thornton DO Active LEVOFLOXACIN 500 MG TABS 1 tab po qd LEVOFLOXACIN 70235601500 No Longer Active Renzo Thornton DO Active BUSPIRONE HCL 15 MG TABS 1 tab po TID BUSPIRONE HCL 66687951496 No Longer Active Renzo Thornton DO Active BENZTROPINE MESYLATE 1 MG TABS 1 tab po qd BENZTROPINE MESYLATE 45909252308 No Longer Active Renzo Thornton DO Active ATENOLOL 25 MG TABS 1 tab po qd ATENOLOL 10220271344 No Longer Active Renzo Thornton DO Active ESCITALOPRAM OXALATE 20 MG TABS 1 tab po qd ESCITALOPRAM OXALATE 72988594769 No Longer Active Renzo Thornton DO Active ADVAIR DISKUS 250-50 MCG/DOSE AEPB 1 puff BID FLUTICASONE-SALMETEROL 42386229264 No Longer Active Renzo Thornton DO Active PREDNISONE 20 MG TAB 2 tabs daily for 3 days, 1 tab daily for 3 days, 1/2 tab daily for 2 days PREDNISONE 90187781827 No Longer Active Vishal Hui MD Active CEFDINIR 300 MG CAPS by mouth twice a day CEFDINIR 40740493699 No Longer Active Vishal Hui MD Active LANSOPRAZOLE 30 MG CPDR 1 cap po qd LANSOPRAZOLE 58023574983 No Longer Active Vishal Hui MD Active TOPAMAX 25 MG TABS 1 tab po bid TOPIRAMATE 01178663023 Active Vishal Hui MD Active MINIPRESS 2 MG CAPS 1 cap po at night PRAZOSIN HCL 58732751591 Active Vishal Hui MD Active BACLOFEN 20 MG TABS 1 tab po tid BACLOFEN 07110737576 Active Vishal Hui MD Active ADVAIR DISKUS 250-50 MCG/DOSE AEPB 1 puff BID ADVAIR DISKUS 250-50 MCG/DOSE AEPB FLUTICASONE-SALMETEROL Inactive ESCITALOPRAM OXALATE 20 MG TABS 1 tab po qd ESCITALOPRAM OXALATE 20 MG TABS 155044 ESCITALOPRAM OXALATE Inactive ATENOLOL 25 MG TABS 1 tab po qd ATENOLOL 25 MG TABS 487465 ATENOLOL Inactive BENZTROPINE MESYLATE 1 MG TABS 1 tab po qd BENZTROPINE MESYLATE 1 MG TABS 691334 BENZTROPINE MESYLATE Inactive BUSPIRONE HCL 15 MG TABS 1 tab po TID BUSPIRONE HCL 15 MG TABS 365046 BUSPIRONE HCL Inactive LEVOFLOXACIN 500 MG TABS 1 tab po qd LEVOFLOXACIN 500 MG TABS 961959 LEVOFLOXACIN Inactive PREDNISONE 20 MG TABS 1 tab po qd PREDNISONE 20 MG TABS 426145 PREDNISONE Inactive MIRALAX POWD 1 capfull once daily MIRALAX POWD 082082 POLYETHYLENE GLYCOL 3350 Inactive VERAPAMIL HCL ER 180 MG CR-TABS 1 tab po bid VERAPAMIL HCL ER 180 MG CR-TABS VERAPAMIL HCL Inactive LORATADINE 10 MG TABS 1 tab po qd LORATADINE 10 MG TABS 049429 LORATADINE Inactive LYRICA 50 MG CAPS 1 tab po TID LYRICA 50 MG CAPS PREGABALIN Inactive ZALEPLON 10 MG CAPS 1 cap po every other night ZALEPLON 10 MG CAPS 671425 ZALEPLON Inactive SAPHRIS 5 MG SUBL 1 tab po qd SAPHRIS 5 MG SUBL ASENAPINE MALEATE Inactive TRAZODONE HCL 50 MG TABS 1/2 tab po qd prn for anxiety TRAZODONE HCL 50 MG TABS 601895 TRAZODONE HCL Inactive LATUDA 20 MG TABS Take one by mouth daily LATUDA 20 MG TABS LURASIDONE HCL Inactive LISINOPRIL 20 MG TABS 1 tab po qd LISINOPRIL 20 MG TABS 754175 LISINOPRIL Inactive SAPHRIS 10 MG SUBL 1 [...] twice a day CEFDINIR 300 MG CAPS 939029 CEFDINIR Inactive PREDNISONE 20 MG TAB 2 tabs daily for 3 days, 1 tab daily for 3 days, 1/2 tab daily for 2 days PREDNISONE 20 MG TAB 313156 PREDNISONE Inactive BACTRIM DS 800-160 MG TABS [...] Panel - Chemistry sodium, serum 141 mmol/L 558-477 7014 potassium, serum 4.3 mmol/L 3.5-5.2 chloride, serum [...] Panel - Chemistry sodium, serum 139 mmol/L 360-397 1818/12/31 potassium, serum 4.8 mmol/L 3.5-5.2 chloride, serum 106 mmol/L 98-107 carbon dioxide, venous blood 24.3 mmol/L 21.0-32.0 blood glucose 90 mg/dL 65-110 urea nitrogen, blood 16 mg/dL 7-18 creatinine, serum 1.00 mg/dL 0.60-1.30 alanine aminotransferase (SGPT), serum 41 U/L 12-78 aspartate aminotransferase (SGOT), serum 17 U/L 15-37 calcium, serum 8.6 mg/dL 8.5-10.1 bilirubin, serum, total 0.30 mg/dL 0.00-1.00 cholesterol, serum 108 mg/dL 056-990 3913/12/31 triglyceride, serum, fasting 120 mg/dL 30-200 HDL [...] Negative Negative Lab Report: [facility]AD[facility] W/MICRO, AUTO, [facility] [place] Chemistry protein, total urine random Negative [...] semiquantitative 7.0 5.0-8.5 Lab Report: Varicella-Zoater Inga IgG,IgM/08575, HEP Be Antibody/556, RUB ... - Serology rubella antibody, serum, IgG 2.88 Encounters Code Encounter Date Provider Facility CPT-40980 Level 3 Est. Patient 14:49:50 CDT Vishal Hui MD [facility] CPT-13124 Level 4 Est. Patient 18:41:46 CDT Neeraj Collins MD [facility] CPT-02666 Level 4 Est. Patient 09:18:38 DIRECTOR COLLEGE Vishal Hui MD [facility]-39032 Level 3 Est. Patient 14:43:55 DIRECTOR COLLEGE Vishal Hui MD [facility] CPT-53259 Level 3 Est. Patient 15:26:33 DIRECTOR COLLEGE Sahara Rodriguez MD PhD [facility]-28126 Level 3 Est. Patient 10:32:14 DIRECTOR COLLEGE Vishal Hui MD [facility] CPT-53263 Level 3 Est. Patient 15:12:52 DIRECTOR COLLEGE Vishal Hui MD [facility] CPT-40100 Level 4 Est. Patient 09:19:27 CDT Vishal Hui MD [facility] CPT-98710 Level 3 Est. Patient 15:53:00 CDT Renzo Thornton [facility] CPT-64592 Level 3 Est. Patient 15:50:30 CDT Renzo Thornton [facility] CPT-97622 Level 3 Est. Patient 16:55:24 CDT Vishal Hui MD [facility] Procedures Code Procedure Name Date Entry Date Standard Description CPT-50243 Recombivax HB Injection Suspension 5 MCG/0.5ML 10:00:41 CDT CPT-59471 Administration single or combination vaccine inc oral 10 :00:41 CDT CPT-77010 Sono transvag pelvis non OB uterus ovaries cervix 16:36: 57 CDT CPT-04020 LS spine comp w obliq 09:50:55 DIRECTOR COLLEGE CPT-56555 Abd compl w upright 09:50:55 DIRECTOR COLLEGE CPT-J1100 Decadron 4mg (Dexamethasone) 15:51:24 DIRECTOR COLLEGE CPT-J1030 Depo Medrol 40 mg (Methyl Prednisolone Acetate) 15:51: 24 DIRECTOR COLLEGE CPT-50704 Abx/Therapy Injection 15:51:24 DIRECTOR COLLEGE CPT-J1100 Decadron 4mg (Dexamethasone) 15:26:33 DIRECTOR COLLEGE CPT-J1030 Depo Medrol 40 mg (Methyl Prednisolone Acetate) 15:26: 33 DIRECTOR COLLEGE CPT-89329 Sono retroperitoneal complete kidneys and bladder 17:15: 30 CDT CPT-25658 Abd compl w upright 16:09:25 CDT CPT-J1100 Decadron 8mg (Dexamethasone) 17:07:57 CDT CPT-80419 Abx/Therapy Injection 17:07:57 CDT CPT-J1100 Decadron 8mg (Dexamethasone) 16:55:24 CDT CPT-73935 Chest 2V Frontal and Lat 16:32:44 CDT
--- OUTSIDE RECORDS SUMMARY | 2016-11-04 21:37 | XMS REPORT | Clinical Summary ---
Author Author Admin, Dereck Organization [facility] [employer] Address Unknown Phone Unavailable Allergies, Adverse Reactions, [...] sites Morbid obesity 278.01 Active Juliet Kimbrough WATCH AND CLOCK REPAIRER Morbid obesity 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 Active Juliet Kimbrough WATCH AND CLOCK REPAIRER Dependence on other enabling machines and devices [...] Shortness of breath 786.05 Active Fabiola Johnson WATCH AND CLOCK REPAIRER Shortness of breath Nocturnal hypoxia 799.02 Active Fabiola Johnson WATCH AND CLOCK REPAIRER Hypoxemia Neck pain 723.1 Active Luigi Martínez WATCH AND CLOCK REPAIRER Cervicalgia Vaginal discharge 623.5 Active Neeraj Collins [...] TABS take as directed 2015 VARENICLINE TARTRATE 40780673015 Active Ahmet Carbajal MD Active CHANTIX 1 MG TABS 1 twice a day to help quit smoking VARENICLINE TARTRATE 11983004887 Active Ahmet Carbajal MD Active HYDROCODONE-ACETAMINOPHEN 5-325 MG TABS 1 to 2 four times a day as needed for pain use until can be seen by specialist HYDROCODONE- ACETAMINOPHEN 38085343620 No Longer Active Vishal Hui MD Active PROAIR HFA 108 (90 BASE) MCG/ACT AERS 2 puffs four times a day as needed 2015 ALBUTEROL SULFATE 56992304440 No Longer Active Vishal Hui MD Active PREDNISONE 20 MG TABS 2 daily for 5 days then 1 daily for 5 days PREDNISONE 11913013446 No Longer Active Vishal Hui MD Active ZITHROMAX Z-EARNEST 250 MG TABS 2 today and then 1 daily for 4 days AZITHROMYCIN 07454088978 No Longer Active Vishal Hui MD Active DICLOFENAC SODIUM 50 MG TBEC 1 tablet by mouth four times daily PRN Pain 2015 DICLOFENAC SODIUM 43499865506 Active Vishal Hui MD Active DICLOFENAC POTASSIUM TABS Take 1 tablet twice a day (pt. is not sure of the dose.) DICLOFENAC POTASSIUM TABS 65453246166 No Longer Active Vishal Hui MD Active VERAPAMIL HCL ER 120 MG ORAL CR-TABS Take 1 tablet by mouth twice a day. VERAPAMIL HCL 31054569495 Active Vishal uHi MD Active FLAGYL 500 MG TAB 1 tablet by mouth bid METRONIDAZOLE 00181591177 No Longer Active Vishal Hui MD Active ABILIFY MAINTENA 400 MG IM SUSR 400mg injection every 28 days ARIPIPRAZOLE 24043067932 Active Silvia Ervinum SAWDUST MACHINE OPERATOR Active FLUTICASONE PROPIONATE 50 MCG/ACT SUSP 2 sprays each nostril daily before bed. FLUTICASONE PROPIONATE 18147104267 Active Fabiola Johnson APRN Active ADZENYS XR-ODT 6.3 MG ORAL TBED 1 tab po daily for ADHD AMPHETAMINE 27923465201 Active Fabiola Johnson APRN Active BENADRYL 25 MG CAP 4 po at bedtime for insomnia DIPHENHYDRAMINE HCL 02660296035 Active Fabiola Johnson APRN Active KLONOPIN 1 MG ORAL TABS 1 tab po TID CLONAZEPAM 72663824246 Active Fabiola Johnson APRN Active VALIUM 5 MG TAB Take 1-2 tablets daily DIAZEPAM 89360891777 No Longer Active Fabiola Johnson APRN Active METOPROLOL TARTRATE 25 MG ORAL TABS 1/2 tablet twice daily for heart rate and blood pressure METOPROLOL TARTRATE 50422784309 No Longer Active Fabiola Johnson APRN Active MIRALAX ORAL POWD 17GMS DAILY IN WATER POLYETHYLENE GLYCOL 3350 91179467022 Active Vishal Hui MD Active VIIBRYD 10 MG ORAL TABS Take 1 tablet once a day VILAZODONE HCL 71375419244 Active Ahmet Carbajal MD Active MIRALAX PACK 1 po qd PRN Constipation POLYETHYLENE GLYCOL 3350 15544214830 No Longer Active Ahmet Carbajal MD Active MINIPRESS 2 MG CAPS 4 cap po at night PRAZOSIN HCL 49221529346 No Longer Active Ahmet Carbajal MD Active PIROXICAM 20 MG CAPS 1 cap po qd PRN Pain PIROXICAM 95841758104 No Longer Active Ahmet Carbajal MD Active TRAMADOL HCL 50 MG TABS 1-2 po TID PRN Pain TRAMADOL HCL 85892797134 No Longer Active Ahmet Carbajal MD Active METOPROLOL TARTRATE 50 MG TAB 1 po bid METOPROLOL TARTRATE 80558201586 No Longer Active Ahmet Carbajal MD Active ABILIFY 15 MG ORAL TABS 1 tab daily ARIPIPRAZOLE 44668554487 No Longer Active Ahmet Carbajal MD Active PROZAC 20 MG ORAL CAPS 1 tab daily FLUOXETINE HCL 70785309980 No Longer Active Ahmet Carbjaal MD Active AMBIEN 5 MG ORAL TABS 1 tab at bedtime ZOLPIDEM TARTRATE 75432412986 No Longer Active Ahmet Carbajal MD Active PREDNISONE 20 MG TAB 2 tabs daily for 4 days, 1 tab daily for 4 days, 1/2 tab daily for 4 days PREDNISONE 71316258634 No Longer Active Ahmet Carbajal MD Active KEFLEX 500 MG CAP 1 po TID x 10 days CEPHALEXIN 31961875244 No Longer Active Vishal Hui MD Active IMITREX 50 MG ORAL TABS 1/2 tab every 6 hours prn SUMATRIPTAN SUCCINATE 53486832333 Active Jillina Fralebron NORIEGA Active TOPAMAX 50 MG ORAL TABS 1 tab twice daily TOPIRAMATE 58466498971 Active Vishal Hui MD Active SAPHRIS 5 MG SUBL 1 po bid ASENAPINE MALEATE 39623635621 No Longer Active Luigi Martínez APRN Active LATUDA 80 MG TABS Take one by mouth daily LURASIDONE HCL 88284993124 No Longer Active Luigi Martínez APRN Active AMLODIPINE BESYLATE 5 MG TABS 1 tablet by mouth daily AMLODIPINE BESYLATE 02156343133 No Longer Active Luigi Martínez APRN Active AMITRIPTYLINE HCL 100 MG TAB one at hs AMITRIPTYLINE HCL 46213487326 No Longer Active Vishal Hui MD Active TRAZODONE HCL 100 MG TAB take 1 at bedtime TRAZODONE HCL 41804352105 No Longer Active Vishal Hui MD Active VYVANSE 40 MG CAPS 1 daily, LISDEXAMFETAMINE DIMESYLATE 62353869077 No Longer Active Vishal Hui MD Active IBUPROFEN 600 MG TAB 1 po TID PRN IBUPROFEN 99051273002 No Longer Active Vishal Hui MD Active PROZAC 20 MG CAP Take one by mouth daily FLUOXETINE HCL 74645934570 No Longer Active Vishal Hui MD Active ZOFRAN 4 MG TABS 1 po q6hr PRN Nausea ONDANSETRON HCL Active Vishal Hui MD Active BACTRIM DS 800-160 MG TABS 1 pill by mouth twice daily SULFAMETHOXAZOLE-TRIMETHOPRIM 30882162752 No Longer Active Sahara Rodriguez MD PhD Active DIFLUCAN 150 MG TAB 1 tablet by mouth daily FLUCONAZOLE 96804179749 No Longer Active Vishal Hui MD Active TIZANIDINE HCL 4 MG TABS 1 po q6hr PRN Muscle Spasm/Back Pain TIZANIDINE HCL 51777690011 Active Vishal Hui MD Active CLINDAMYCIN HCL 150 MG CAPS 1 four times a day CLINDAMYCIN HCL 38782926428 No Longer Active Neeraj Collins MD Active KEFLEX 500 MG ORAL CAPS 1 cap QID by mouth CEPHALEXIN 31112809071 No Longer Active Neeraj Collins MD Active DIFLUCAN 150 MG TABS 1 pill every other day x 2 doses FLUCONAZOLE 42211623669 No Longer Active Sahara Rodriguez MD PhD Active MELATONIN 3 MG CAPS 2 po q hs MELATONIN 57370809458 No Longer Active Sahara Rodriguez MD PhD Active MULTIVITAMINS CAPS Take one by mouth daily MULTIPLE VITAMIN 29232330173 No Longer Active Sahara Rodriguez MD PhD Active BACTRIM DS 800-160 MG TAB 1 tab by mouth twice daily TRIMETHOPRIM-SULFAMETHOXAZOLE 39041653341 No Longer Active Sahara Rodriguez MD PhD Active [facility] PROBIOTIC ORAL CHEW 2 daily po PROBIOTIC PRODUCT 91426616481 No Longer Active Sahara Rodriguez MD PhD Active BACTRIM DS 800-160 MG TABS 1 po BID x 7 days SULFAMETHOXAZOLE-TRIMETHOPRIM 40438289172 No Longer Active Vishal Hui MD Active CHANTIX STARTING MONTH EARNEST 0.5 MG X 11 & 1 MG X 42 TABS 0.5mg daily for 3 days , then 0.5mg BID for 4 days, then 1mg BID VARENICLINE TARTRATE 54491703230 No Longer Active TAMARA Gray Active VERAPAMIL HCL CR 120 MG TAB CR 1 po bid VERAPAMIL HCL 21721523415 No Longer Active Vishal Hui MD Active METOPROLOL SUCCINATE 50 MG TB24 1 tablet by mouth daily METOPROLOL SUCCINATE 59635648764 No Longer Active Vishal Hui MD Active SAPHRIS 10 MG SUBL 1 tab po bid ASENAPINE MALEATE 66309235590 No Longer Active Vishal Hui MD Active LISINOPRIL 20 MG TABS 1 tab po qd LISINOPRIL 60850663687 No Longer Active Vishal Hui MD Active LATUDA 20 MG TABS Take one by mouth daily LURASIDONE HCL 90604265906 No Longer Active Vishal Hui MD Active TRAZODONE HCL 50 MG TABS 1/2 tab po qd prn for anxiety TRAZODONE HCL 35210766224 No Longer Active Vishal Hui MD Active OMEPRAZOLE 20 MG TBEC 1 po q a.m. 30min prior to first food intake OMEPRAZOLE 20434408874 Active Vishal Hui MD Active RANITIDINE HCL 150 MG CAPS 1 twice a day RANITIDINE HCL 24112231668 Active Luigi Martínez APRN Active LINZESS 290 MCG CAPS Take one by mouth daily LINACLOTIDE 04209070443 No Longer Active Vishal Hui MD Active SAPHRIS 5 MG SUBL 1 tab po qd ASENAPINE MALEATE 50154043526 No Longer Active Vishal Hui MD Active ZALEPLON 10 MG CAPS 1 cap po every other night ZALEPLON 05364280037 No Longer Active Vishal Hui MD Active LYRICA 50 MG CAPS 1 tab po TID PREGABALIN 85560791699 No Longer Active Vishal Hui MD Active LORATADINE 10 MG TABS 1 tab po qd LORATADINE 58332159888 No Longer Active Vishal Hui MD Active VERAPAMIL HCL ER 180 MG CR-TABS 1 tab po bid VERAPAMIL HCL 38416046705 No Longer Active Vishal Hui MD Active MIRALAX POWD 1 capfull once daily POLYETHYLENE GLYCOL 3350 22734837005 No Longer Active Vishal Hui MD Active PREDNISONE 20 MG TABS 1 tab po qd PREDNISONE 12482446891 No Longer Active Renzo Thornton DO Active LEVOFLOXACIN 500 MG TABS 1 tab po qd LEVOFLOXACIN 01974526907 No Longer Active Renzo Thornton DO Active BUSPIRONE HCL 15 MG TABS 1 tab po TID BUSPIRONE HCL 03731966474 No Longer Active Renzo Thornton DO Active BENZTROPINE MESYLATE 1 MG TABS 1 tab po qd BENZTROPINE MESYLATE 34196206435 No Longer Active Renzo Thornton DO Active ATENOLOL 25 MG TABS 1 tab po qd ATENOLOL 03098110843 No Longer Active Renzo Thornton DO Active ESCITALOPRAM OXALATE 20 MG TABS 1 tab po qd ESCITALOPRAM OXALATE 93102181100 No Longer Active Renzo Thornton DO Active ADVAIR DISKUS 250-50 MCG/DOSE AEPB 1 puff BID FLUTICASONE-SALMETEROL 71577801790 No Longer Active Renzo Thornton DO Active PREDNISONE 20 MG TAB 2 tabs daily for 3 days, 1 tab daily for 3 days, 1/2 tab daily for 2 days PREDNISONE 65076956311 No Longer Active Vishal Hui MD Active CEFDINIR 300 MG CAPS by mouth twice a day CEFDINIR 86423494917 No Longer Active Vishal Hui MD Active LANSOPRAZOLE 30 MG CPDR 1 cap po qd LANSOPRAZOLE 20972955906 No Longer Active Vishal Hui MD Active BACLOFEN 20 MG TABS 1 tab po tid BACLOFEN 33623137631 No Longer Active Vishal Hui MD Active ADVAIR DISKUS 250-50 MCG/DOSE AEPB 1 puff BID ADVAIR DISKUS 250-50 MCG/DOSE AEPB FLUTICASONE-SALMETEROL Inactive ESCITALOPRAM OXALATE 20 MG TABS 1 tab po qd ESCITALOPRAM OXALATE 20 MG TABS 831490 ESCITALOPRAM OXALATE Inactive ATENOLOL 25 MG TABS 1 tab po qd ATENOLOL 25 MG TABS 898451 ATENOLOL Inactive BENZTROPINE MESYLATE 1 MG TABS 1 tab po qd BENZTROPINE MESYLATE 1 MG TABS 828521 BENZTROPINE MESYLATE Inactive BUSPIRONE HCL 15 MG TABS 1 tab po TID BUSPIRONE HCL 15 MG TABS 362163 BUSPIRONE HCL Inactive LEVOFLOXACIN 500 MG TABS 1 tab po qd LEVOFLOXACIN 500 MG TABS 482401 LEVOFLOXACIN Inactive PREDNISONE 20 MG TABS 1 tab po qd PREDNISONE 20 MG TABS 719518 PREDNISONE Inactive MIRALAX POWD 1 capfull once daily MIRALAX POWD 881540 POLYETHYLENE GLYCOL 3350 Inactive VERAPAMIL HCL ER 180 MG CR-TABS 1 tab po bid VERAPAMIL HCL ER 180 MG CR-TABS VERAPAMIL HCL Inactive LORATADINE 10 MG TABS 1 tab po qd LORATADINE 10 MG TABS 812742 LORATADINE Inactive LYRICA 50 MG CAPS 1 tab po TID LYRICA 50 MG CAPS PREGABALIN Inactive ZALEPLON 10 MG CAPS 1 cap po every other night ZALEPLON 10 MG CAPS 366169 ZALEPLON Inactive SAPHRIS 5 MG SUBL 1 tab po qd SAPHRIS 5 MG SUBL ASENAPINE MALEATE Inactive TRAZODONE HCL 50 MG TABS 1/2 tab po qd prn for anxiety TRAZODONE HCL 50 MG TABS 995909 TRAZODONE HCL Inactive LATUDA 20 MG TABS Take one by mouth daily LATUDA 20 MG TABS LURASIDONE HCL Inactive LISINOPRIL 20 MG TABS 1 tab po qd LISINOPRIL 20 MG TABS 258770 LISINOPRIL Inactive SAPHRIS 10 MG SUBL 1 [...] twice daily BACTRIM DS 800-160 MG TAB 668895 TRIMETHOPRIM-SULFAMETHOXAZOLE Inactive MULTIVITAMINS CAPS Take one by mouth daily MULTIVITAMINS CAPS MULTIPLE VITAMIN Inactive MELATONIN 3 MG CAPS 2 po q hs MELATONIN 3 MG CAPS 224992 MELATONIN Inactive KEFLEX 500 MG ORAL CAPS 1 cap QID by mouth KEFLEX 500 MG ORAL CAPS 194232 CEPHALEXIN Inactive CLINDAMYCIN HCL 150 MG CAPS 1 four times a day CLINDAMYCIN HCL 150 MG CAPS 812329 CLINDAMYCIN HCL Inactive DIFLUCAN 150 MG TAB 1 tablet by mouth daily DIFLUCAN 150 MG TAB 723114 FLUCONAZOLE Inactive PROZAC 20 MG CAP Take one by mouth daily PROZAC 20 MG CAP 723615 FLUOXETINE HCL Inactive IBUPROFEN 600 MG TAB 1 po TID PRN IBUPROFEN 600 MG TAB 644367 IBUPROFEN Inactive VYVANSE 40 MG CAPS 1 daily, VYVANSE 40 MG CAPS LISDEXAMFETAMINE DIMESYLATE Inactive TRAZODONE HCL 100 MG TAB take 1 at bedtime TRAZODONE HCL 100 MG TAB 382701 TRAZODONE HCL Inactive AMITRIPTYLINE HCL 100 MG TAB one at hs AMITRIPTYLINE HCL 100 MG TAB 568150 AMITRIPTYLINE HCL Inactive AMLODIPINE BESYLATE 5 MG TABS 1 tablet by mouth daily AMLODIPINE BESYLATE 5 MG TABS 233709 AMLODIPINE BESYLATE Inactive LATUDA 80 MG TABS Take one by mouth daily LATUDA 80 MG TABS LURASIDONE HCL Inactive SAPHRIS 5 MG SUBL 1 po bid SAPHRIS 5 MG SUBL ASENAPINE MALEATE Inactive PREDNISONE 20 MG TAB 2 tabs daily for 4 days, 1 tab daily for 4 days, 1/2 tab daily for 4 days PREDNISONE 20 MG TAB 504928 PREDNISONE Inactive AMBIEN 5 MG ORAL TABS 1 tab at bedtime AMBIEN 5 MG ORAL TABS 424808 ZOLPIDEM TARTRATE Inactive PROZAC 20 MG ORAL CAPS 1 tab daily PROZAC 20 MG ORAL CAPS 014534 FLUOXETINE HCL Inactive ABILIFY 15 MG ORAL TABS 1 tab daily ABILIFY 15 MG ORAL TABS 952392 ARIPIPRAZOLE Inactive METOPROLOL TARTRATE 50 MG TAB 1 po bid METOPROLOL TARTRATE 50 MG TAB 614131 METOPROLOL TARTRATE Inactive TRAMADOL HCL 50 MG TABS 1-2 po TID PRN Pain TRAMADOL HCL 50 MG TABS 456776 TRAMADOL HCL Inactive PIROXICAM 20 MG CAPS 1 cap po qd PRN Pain PIROXICAM 20 MG CAPS 275420 PIROXICAM Inactive MINIPRESS 2 MG CAPS 4 cap po at night MINIPRESS 2 MG CAPS 450237 PRAZOSIN HCL Inactive MIRALAX PACK 1 po qd PRN Constipation MIRALAX PACK 802370 POLYETHYLENE GLYCOL 3350 Inactive METOPROLOL TARTRATE 25 MG ORAL TABS 1/2 tablet twice daily for heart rate and blood pressure METOPROLOL TARTRATE 25 MG ORAL TABS 890319 METOPROLOL TARTRATE Inactive VALIUM 5 MG TAB Take 1-2 tablets daily VALIUM 5 MG TAB 751554 DIAZEPAM Inactive FLAGYL 500 MG TAB 1 tablet by mouth bid FLAGYL 500 MG TAB 812397 METRONIDAZOLE Inactive DICLOFENAC POTASSIUM TABS Take 1 tablet twice a day (pt. is not sure of the dose.) DICLOFENAC POTASSIUM TABS DICLOFENAC POTASSIUM TABS Inactive ZITHROMAX Z-EARNEST 250 MG TABS 2 today and then 1 daily for 4 days ZITHROMAX Z-EARNEST 250 MG TABS 0785688 AZITHROMYCIN Inactive PREDNISONE 20 MG TABS 2 daily for 5 days then 1 daily for 5 days PREDNISONE 20 MG TABS 166294 PREDNISONE Inactive PROAIR HFA 108 (90 BASE) MCG/ACT AERS 2 puffs four times a day as needed 2015 PROAIR HFA 108 (90 BASE) MCG/ACT AERS ALBUTEROL SULFATE Inactive HYDROCODONE-ACETAMINOPHEN 5-325 MG TABS 1 to 2 four times a day as needed for pain use until can be seen by specialist HYDROCODONE- ACETAMINOPHEN 5-325 MG TABS 727065 HYDROCODONE-ACETAMINOPHEN Inactive CEFDINIR 300 MG CAPS by mouth twice a day CEFDINIR 300 MG CAPS 993096 CEFDINIR Inactive PREDNISONE 20 MG TAB 2 tabs daily for 3 days, 1 tab daily for 3 days, 1/2 tab daily for 2 days PREDNISONE 20 MG TAB 624153 PREDNISONE Inactive BACTRIM DS 800-160 MG TABS 1 po BID x 7 days BACTRIM DS 800-160 MG TABS 426303 SULFAMETHOXAZOLE-TRIMETHOPRIM Inactive DIFLUCAN 150 MG TABS 1 pill every other day x 2 doses DIFLUCAN 150 MG TABS 849599 FLUCONAZOLE Inactive BACTRIM DS 800-160 MG TABS 1 pill by mouth twice daily BACTRIM DS 800-160 MG TABS 559481 SULFAMETHOXAZOLE-TRIMETHOPRIM Inactive KEFLEX 500 MG CAP 1 po TID x 10 days KEFLEX 500 MG CAP 264745 CEPHALEXIN Inactive Advance Directives Directive Description Start [...] % 11.6-14.8 platelet count 394 10^3/MM^3 10*3/mm3 751-175 3795/01/11 leukocyte count, blood 13.8 10^3/MM^3 10*3/mm3 4.6-10.2 [...] Panel - Chemistry sodium, serum 139 mmol/L 607-624 6069/12/03 carbon dioxide, venous blood 28.5 mmol/L 21.0-32.0 [...] 5.5 % 4.3-6.0 cholesterol, serum 159 mg/dL 607-877 0691/12/03 triglyceride, serum, fasting 118 mg/dL 30-200 HDL [...] Panel - Chemistry sodium, serum 139 mmol/L 684-268 7027/12/22 carbon dioxide, venous blood 26.8 mmol/L 21.0-32.0 potassium, serum 4.2 mmol/L 3.5-5.2 chloride, serum 103 mmol/L 98-107 blood glucose 115 mg/dL 65-110 urea nitrogen, blood 20 mg/dL 7-18 creatinine, serum 0.90 mg/dL 0.55-1.30 alanine aminotransferase (SGPT), serum 38 U/L -78 aspartate aminotransferase (SGOT), serum 19 U/L 15-37 calcium, serum 8.6 mg/dL 8.5-10.1 bilirubin, serum, total 0.30 mg/dL 0.00-1.00 sodium, serum 139 mmol/L 326-584 0224/01/11 carbon dioxide, venous blood 26.6 mmol/L 21.0-32.0 potassium, serum 4.1 mmol/L 3.5-5.2 chloride, serum 100 mmol/L 98-107 blood glucose 86 mg/dL 65-110 urea nitrogen, blood 16 mg/dL 7-18 creatinine, serum 1.00 mg/dL 0.55-1.30 alanine aminotransferase (SGPT), serum 48 U/L 78 aspartate aminotransferase (SGOT), serum 17 U/L 15-37 calcium, serum 9.1 mg/dL 8.5-10.1 bilirubin, serum, total 0.40 mg/dL 0.00-1.00 sodium, serum 142 mmol/L 792-485 8303/06/08 carbon dioxide, venous blood 27.6 mmol/L 21.0-32.0 potassium, serum 4.0 mmol/L 3.5-5.2 chloride, serum 105 mmol/L 98-107 blood glucose 95 mg/dL 65-110 urea nitrogen, blood 8 mg/dL 7-18 creatinine, serum 0.75 mg/dL 0.55-1.30 alanine aminotransferase (SGPT), serum 49 U/L - aspartate aminotransferase (SGOT), serum 28 U/L 15-37 calcium, serum 9.4 mg/dL 8.5-10.1 bilirubin, serum, total 0.30 mg/dL 0.00-1.00 sodium, serum 140 mmol/L 655-712 4983/08/08 carbon dioxide, venous blood 33.7 mmol/L 21.0-32.0 [...] Rate - Chemistry sodium, serum 139 mmol/L 396-384 7280/12/11 carbon dioxide, venous blood 25.4 mmol/L 21.0-32.0 [...] mg/dL Encounters Code Encounter Date Provider Facility CPT-74773 Level 3 Est. Patient 11:36:17 CDT Ahmet Carbajal MD [facility] CPT-27946 Level 3 Est. Patient 13:29:16 CDT Vishal Hui MD [facility] CPT-79920 Level 3 Est. Patient 14:27:52 CDT Neeraj Collins MD [facility] CPT-35168 Level 3 Est. Patient 08:56:03 CDT Luigi Martínez APRN [facility] CPT-45863 Level 4 Est. Patient 12:11:48 CDT Fabiola Johnson APRN [facility] CPT-83326 Level 3 New Patient 16:53:37 CDT Albert Caldera MD [facility] CPT-18886 Level 3 Est. Patient 11:25:49 CDT Renzo Thornton DO [facility] CPT-88383 Level 3 Est. Patient 15:22:01 CDT Ahmet Carbajal MD [facility] CPT-37647 Level 4 Est. Patient 09:00:51 LOAN CONSULTANT Vishal Hui MD [facility] CPT-85049 Level 3 Est. Patient 11:37:33 LOAN CONSULTANT Vishal Hui MD [facility] CPT-45581 Level 3 Est. Patient 08:41:09 LOAN CONSULTANT Vishal Hui MD [facility] CPT-74648 Level 4 Est. Patient 10:19:35 LOAN CONSULTANT Vishal Hui MD [facility] CPT-21741 Level 3 Est. Patient 13:35:45 CDT Vishal Hui MD [facility] CPT-05543 Level 4 Est. Patient 10:08:37 CDT Vishal Hiu MD [facility] CPT-41574 Level 3 Est. Patient 11:22:10 CDT Vishal Hui MD [facility] CPT-52579 Level 3 Est. Patient 11:03:32 CDT Sahara Rodriguez MD PhD [facility] CPT-99346 Level 3 Est. Patient 09:41:35 CDT Vishal Hui MD [facility] CPT-50632 Level 3 Est. Patient 12:00:41 CDT Neeraj Collins MD [facility] CPT-32248 Level 3 Est. Patient 09:16:24 CDT Vishal Hui MD [facility] CPT-10336 Level 4 Est. Patient 13:59:09 CDT Neeraj Collins MD [facility] CPT-76505 Level 3 Est. Patient 15:19:43 CDT Renzo Thornton [facility] CPT-39594 Level 3 Est. Patient 18:10:26 CDT Sahara Rodrgiuez MD [facility] CPT-36765 Level 3 Est. Patient 14:49:50 CDT Vishal Hui MD [facility] CPT-90397 Level 4 Est. Patient 18:41:46 CDT Neeraj Collins MD [facility] CPT-47654 Level 4 Est. Patient 09:18:38 LOAN CONSULTANT Vishal Hui MD [facility] CPT-84351 Level 3 Est. Patient 14:43:55 LOAN CONSULTANT Vishal Hui MD [facility] CPT-28308 Level 3 Est. Patient 15:26:33 LOAN CONSULTANT Sahara Rodriguez MD PhD [facility] CPT-89810 Level 3 Est. Patient 10:32:14 LOAN CONSULTANT Vishal Hui MD [facility] CPT-80442 Level 3 Est. Patient 15:12:52 LOAN CONSULTANT Vishal Hui MD [facility] CPT-31222 Level 4 Est. Patient 09:19:27 CDT Vishal Hui MD [facility] CPT-97311 Level 3 Est. Patient 15:53:00 CDT Renzo Thornton [facility] CPT-20464 Level 3 Est. Patient 15:50:30 CDT Renzo Thornton [facility] CPT-46400 Level 3 Est. Patient 16:55:24 CDT Vishal Hui MD [facility] Procedures Code Procedure Name Date Entry Date Standard Description CPT-35249 Abx/Therapy Injection 08:47:09 CDT CPT-19068 Abx/Therapy Injection 13:29:56 CDT CPT-87581 Abx/Therapy Injection 08:36:16 CDT CPT-42606 Wet Mount - LAB USE ONLY 17:44:58 CDT CPT-77345 UA w micro - LAB USE ONLY 17:44:58 CDT CPT-74119 CMP - LAB USE ONLY 17:44:58 CDT CPT-75479 Venipuncture Draw Fee 17:44:58 CDT CPT-22577 Cervical Min 4V - XRAY USE ONLY 09:01:40 CDT CPT-25668 Chest 2V Frontal and Lat - XRAY USE ONLY 11:06:31 CDT CPT-03409 EKG Trac and Interp - XRAY USE ONLY 11:31:43 CDT 08/26 CPT-J3420 Vitamin B12 1000mcg (Cyanocobalamin) 08:10:26 LOAN CONSULTANT 04/12 CPT-73936 Abx/Therapy Injection 08:10:26 LOAN CONSULTANT CPT-G0438 Initial Annual Wellness Exam 19:01:01 LOAN CONSULTANT CPT-J3420 Vitamin B12 1000mcg (Cyanocobalamin) 16:57:46 CDT 08/14 CPT-84946 Recombivax HB Injection Suspension 5 MCG/0.5ML 08:37:50 LOAN CONSULTANT CPT-98203 Immunization Single Admin 08:37:50 LOAN CONSULTANT CPT-J3420 Vitamin B12 1000mcg (Cyanocobalamin) 08:32:16 LOAN CONSULTANT 03/11 CPT-63602 Abx/Therapy Injection 08:32:16 LOAN CONSULTANT CPT-50406 Chest 2V Frontal and Lat 11:46:38 LOAN CONSULTANT CPT-69967 Venipuncture Draw Fee 09:12:45 LOAN CONSULTANT CPT-J3420 Vitamin B12 1000mcg (Cyanocobalamin) 08:50:15 LOAN CONSULTANT 02/08 CPT-73391 Abx/Therapy Injection 08:50:15 LOAN CONSULTANT CPT-Cryo Cryotherapy 10:19:35 LOAN CONSULTANT CPT-000 Give Appropriate Flu Vaccine 09:22:16 CDT CPT-J3420 Vitamin B12 1000mcg (Cyanocobalamin) 19:08:57 CDT 01/11 CPT-36761 Abx/Therapy Injection 19:08:57 CDT CPT-J3420 Vitamin B12 1000mcg (Cyanocobalamin) 08:19:08 CDT 12/11 CPT-97807 Abx/Therapy Injection 08:19:08 CDT CPT-J3420 Vitamin B12 1000mcg (Cyanocobalamin) 14:48:00 CDT 11/09 CPT-75967 Abx/Therapy Injection 14:47:59 CDT CPT-J3420 Vitamin B12 1000mcg (Cyanocobalamin) 08:34:04 CDT 10/09 CPT-84410 Abx/Therapy Injection 08:34:04 CDT CPT-J3420 Vitamin B12 1000mcg (Cyanocobalamin) 09:18:52 CDT 09/11 CPT-35330 Abx/Therapy Injection 09:18:52 CDT CPT-J3420 Vitamin B12 1000mcg (Cyanocobalamin) 08:35:44 CDT 09/04 CPT-40071 Abx/Therapy Injection 08:35:44 CDT CPT-50950 Immunization Single Admin 11:07:16 CDT CPT-16447 Hepatitis B adult IM 11:07:16 CDT CPT-J3420 Vitamin B12 1000mcg (Cyanocobalamin) 11:00:49 CDT 08/28 CPT-J1040 Depo Medrol 80 mg (Methyl Prednisolone Acetate) 11:00: 49 CDT CPT-04716 Abx/Therapy Injection 11:00:49 CDT CPT-J1040 Depo Medrol 80 mg (Methyl Prednisolone Acetate) 09:16: 23 CDT CPT-J3420 Vitamin B12 1000mcg (Cyanocobalamin) 08:27:05 CDT 08/20 CPT-58920 Abx/Therapy Injection 08:27:05 CDT CPT-85099 Recombivax HB Injection Suspension 5 MCG/0.5ML 10:00:41 CDT CPT-89116 Administration single or combination vaccine inc oral 10 :00:41 CDT CPT-93127 Sono transvag pelvis non OB uterus ovaries cervix 16:36: 57 CDT CPT-29144 LS spine comp w obliq 09:50:55 LOAN CONSULTANT CPT-89466 Abd compl w upright 09:50:55 LOAN CONSULTANT CPT-J1100 Decadron 4mg (Dexamethasone) 15:51:24 LOAN CONSULTANT CPT-J1030 Depo Medrol 40 mg (Methyl Prednisolone Acetate) 15:51: 24 LOAN CONSULTANT CPT-11947 Abx/Therapy Injection 15:51:24 LOAN CONSULTANT CPT-J1100 Decadron 4mg (Dexamethasone) 15:26:33 LOAN CONSULTANT CPT-J1030 Depo Medrol 40 mg (Methyl Prednisolone Acetate) 15:26: 33 LOAN CONSULTANT CPT-64208 Sono retroperitoneal complete kidneys and bladder 17:15: 30 CDT CPT-69086 Abd compl w upright 16:09:25 CDT CPT-J1100 Decadron 8mg (Dexamethasone) 17:07:57 CDT CPT-77455 Abx/Therapy Injection 17:07:57 CDT CPT-J1100 Decadron 8mg (Dexamethasone) 16:55:24 CDT CPT-15701 Chest 2V Frontal and Lat 16:32:44 CDT
--- OUTSIDE RECORDS SUMMARY | 2016-11-04 21:40 | XMS REPORT | Clinical Summary ---
Author Author Admin, Dereck Organization [facility] Address Unknown Phone Unavailable Allergies, Adverse Reactions, [...] Encounter for removal of sutures V58.32 Resolved Vihsal Hui MD Encounter for removal of sutures [...] sites Morbid obesity 278.01 Active Juliet Kimbrough DIVERSITY SPECIALIST Morbid obesity 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 Active Juliet Kimbrough DIVERSITY SPECIALIST Dependence on other enabling machines and [...] breath Nocturnal hypoxia 799.02 Active Fabiola Johnson DIVERSITY SPECIALIST Hypoxemia Neck pain 723.1 Resolved Vishal [...] SUSR 400mg injection every 26 days ARIPIPRAZOLE 45851594218 Active Silvia Casey BUSINESS ATTORNEY Active IMITREX 50 MG ORAL TABS 0.5 po x 1 PRN Headache. May repeat dose x 1 in 2 hours if needed SUMATRIPTAN SUCCINATE 23304708381 Active Vishal Hui MD Active OXYCODONE HCL ER 10 MG ORAL T12A 1/2 tab by mouth every 4 hours prn OXYCODONE HCL 12794712336 Active Neeraj Collins MD Active TESSALON PERLES 100 MG CAP 1 to 2 tablets by mouth 3 times daily as needed for cough BENZONATATE 12221178573 Active Vishal Hui MD Active METHYLPREDNISOLONE 4 MG ORAL TABS po daily METHYLPREDNISOLONE 31042020195 Active Vishal Hui MD Active LEVOFLOXACIN 500 MG ORAL TABS po daily LEVOFLOXACIN 83381104844 Active Vishal Hui MD Active CHANTIX STARTING MONTH EARNEST 0.5 MG X 11 & 1 MG X 42 TABS take as directed 2015 VARENICLINE TARTRATE 13804488357 Active Ahmet Carbajal MD Active CHANTIX 1 MG TABS 1 twice a day to help quit smoking VARENICLINE TARTRATE 88509486858 Active Ahmet Carbajal MD Active HYDROCODONE-ACETAMINOPHEN 5-325 MG TABS 1 to 2 four times a day as needed for pain use until can be seen by specialist HYDROCODONE- ACETAMINOPHEN 13527138661 No Longer Active Vishal Hui MD Active PROAIR HFA 108 (90 BASE) MCG/ACT AERS 2 puffs four times a day as needed 2015 ALBUTEROL SULFATE 53521630658 No Longer Active Vishal Hui MD Active PREDNISONE 20 MG TABS 2 daily for 5 days then 1 daily for 5 days PREDNISONE 61470324708 No Longer Active Vishal Hui MD Active ZITHROMAX Z-EARNEST 250 MG TABS 2 today and then 1 daily for 4 days AZITHROMYCIN 93820566216 No Longer Active Vishal Hui MD Active DICLOFENAC SODIUM 50 MG TBEC 1 tablet by mouth four times daily PRN Pain 2015 DICLOFENAC SODIUM 22645043252 Active Vishal Hui MD Active DICLOFENAC POTASSIUM TABS Take 1 tablet twice a day (pt. is not sure of the dose.) DICLOFENAC POTASSIUM TABS 70210211298 No Longer Active Vishal Hui MD Active VERAPAMIL HCL ER 120 MG ORAL CR-TABS Take 1 tablet by mouth twice a day. VERAPAMIL HCL 46177949991 Active Vishal uHi MD Active FLAGYL 500 MG TAB 1 tablet by mouth bid METRONIDAZOLE 38972773913 No Longer Active Vishal Hui MD Active FLUTICASONE PROPIONATE 50 MCG/ACT SUSP 2 sprays each nostril daily before bed. FLUTICASONE PROPIONATE 89222664875 Active Fabiola Johnson APRN Active ADZENYS XR-ODT 6.3 MG ORAL TBED 1 tab po daily for ADHD AMPHETAMINE 34319780495 Active Fabiola Johnson APRN Active BENADRYL 25 MG CAP 4 po at bedtime for insomnia DIPHENHYDRAMINE HCL 11930171432 Active Fabiola Johnson APRN Active KLONOPIN 1 MG ORAL TABS 1 tab po TID CLONAZEPAM 05978479302 Active Fabiola Johnson APRN Active VALIUM 5 MG TAB Take 1-2 tablets daily DIAZEPAM 17999466059 No Longer Active Fabiola Johnson APRN Active METOPROLOL TARTRATE 25 MG ORAL TABS 1/2 tablet twice daily for heart rate and blood pressure METOPROLOL TARTRATE 29660533181 No Longer Active Fabiola Johnson APRN Active MIRALAX ORAL POWD 17GMS DAILY IN WATER POLYETHYLENE GLYCOL 3350 97772844111 Active Vishal Hui MD Active VIIBRYD 10 MG ORAL TABS Take 1 tablet once a day VILAZODONE HCL 82216125970 Active Ahmet Carbajal MD Active MIRALAX PACK 1 po qd PRN Constipation POLYETHYLENE GLYCOL 3350 78904161431 No Longer Active Ahmet Carbajal MD Active MINIPRESS 2 MG CAPS 4 cap po at night PRAZOSIN HCL 09855054238 No Longer Active Ahmet Carbajal MD Active PIROXICAM 20 MG CAPS 1 cap po qd PRN Pain PIROXICAM 00719099480 No Longer Active Ahmet Carbajal MD Active TRAMADOL HCL 50 MG TABS 1-2 po TID PRN Pain TRAMADOL HCL 04344509691 No Longer Active Ahmet Carbajal MD Active METOPROLOL TARTRATE 50 MG TAB 1 po bid METOPROLOL TARTRATE 70150361726 No Longer Active Ahmet Carbajal MD Active ABILIFY 15 MG ORAL TABS 1 tab daily ARIPIPRAZOLE 74120931550 No Longer Active Ahmet Carbajal MD Active PROZAC 20 MG ORAL CAPS 1 tab daily FLUOXETINE HCL 10238576886 No Longer Active Ahmet Carbajal MD Active AMBIEN 5 MG ORAL TABS 1 tab at bedtime ZOLPIDEM TARTRATE 13263505015 No Longer Active Ahmet Carbajal MD Active PREDNISONE 20 MG TAB 2 tabs daily for 4 days, 1 tab daily for 4 days, 1/2 tab daily for 4 days PREDNISONE 35171238474 No Longer Active Ahmet Carbajal MD Active KEFLEX 500 MG CAP 1 po TID x 10 days CEPHALEXIN 87552196923 No Longer Active Vishal Hui MD Active TOPAMAX 50 MG ORAL TABS 1 tab twice daily TOPIRAMATE 30315328176 Active Vishal Hui MD Active SAPHRIS 5 MG SUBL 1 po bid ASENAPINE MALEATE 53005010981 No Longer Active Luigi Martínez APRN Active LATUDA 80 MG TABS Take one by mouth daily LURASIDONE HCL 25835450542 No Longer Active Jillina Fralebron NORIEGA Active AMLODIPINE BESYLATE 5 MG TABS 1 tablet by mouth daily AMLODIPINE BESYLATE 47966842914 No Longer Active Pacolljanee Martínez APRN Active AMITRIPTYLINE HCL 100 MG TAB one at hs AMITRIPTYLINE HCL 96605569750 No Longer Active Vishal Hui MD Active TRAZODONE HCL 100 MG TAB take 1 at bedtime TRAZODONE HCL 66571255154 No Longer Active Vishal Hui MD Active VYVANSE 40 MG CAPS 1 daily, LISDEXAMFETAMINE DIMESYLATE 52085958075 No Longer Active Vishal Hui MD Active IBUPROFEN 600 MG TAB 1 po TID PRN IBUPROFEN 23644467981 No Longer Active Vishal Hui MD Active PROZAC 20 MG CAP Take one by mouth daily FLUOXETINE HCL 76568044840 No Longer Active Vishal Hui MD Active ZOFRAN 4 MG TABS 1 po q6hr PRN Nausea ONDANSETRON HCL Active Vishal Hui MD Active BACTRIM DS 800-160 MG TABS 1 pill by mouth twice daily SULFAMETHOXAZOLE-TRIMETHOPRIM 46583355174 No Longer Active Sahara Rodriguez MD PhD Active DIFLUCAN 150 MG TAB 1 tablet by mouth daily FLUCONAZOLE 17306505746 No Longer Active Vishla Hui MD Active TIZANIDINE HCL 4 MG TABS 1 po q6hr PRN Muscle Spasm/Back Pain TIZANIDINE HCL 00221830153 Active Vishal Hui MD Active CLINDAMYCIN HCL 150 MG CAPS 1 four times a day CLINDAMYCIN HCL 67788307638 No Longer Active Neeraj Collins MD Active KEFLEX 500 MG ORAL CAPS 1 cap QID by mouth CEPHALEXIN 31310348748 No Longer Active Neeraj Collins MD Active DIFLUCAN 150 MG TABS 1 pill every other day x 2 doses FLUCONAZOLE 72069839127 No Longer Active Sahara Rodriguez MD PhD Active MELATONIN 3 MG CAPS 2 po q hs MELATONIN 23766098786 No Longer Active Sahara Rodriguez MD PhD Active MULTIVITAMINS CAPS Take one by mouth daily MULTIPLE VITAMIN 38371621738 No Longer Active Sahara Rodriguez MD PhD Active BACTRIM DS 800-160 MG TAB 1 tab by mouth twice daily TRIMETHOPRIM-SULFAMETHOXAZOLE 34721940628 No Longer Active Sahara Rodriguez MD PhD Active [facility] PROBIOTIC ORAL CHEW 2 daily po PROBIOTIC PRODUCT 88550202569 No Longer Active Sahara Rodriguez MD PhD Active BACTRIM DS 800-160 MG TABS 1 po BID x 7 days SULFAMETHOXAZOLE-TRIMETHOPRIM 44028786799 No Longer Active Vishal Hui MD Active CHANTIX STARTING MONTH EARNEST 0.5 MG X 11 & 1 MG X 42 TABS 0.5mg daily for 3 days , then 0.5mg BID for 4 days, then 1mg BID VARENICLINE TARTRATE 27010501200 No Longer Active TAMARA Gray Active VERAPAMIL HCL CR 120 MG TAB CR 1 po bid VERAPAMIL HCL 69310482955 No Longer Active Vishal Hui MD Active METOPROLOL SUCCINATE 50 MG TB24 1 tablet by mouth daily METOPROLOL SUCCINATE 67709585618 No Longer Active Vishal Hui MD Active SAPHRIS 10 MG SUBL 1 tab po bid ASENAPINE MALEATE 66630245375 No Longer Active Vishal Hui MD Active LISINOPRIL 20 MG TABS 1 tab po qd LISINOPRIL 72870244065 No Longer Active Vishal Hui MD Active LATUDA 20 MG TABS Take one by mouth daily LURASIDONE HCL 50509138323 No Longer Active Vishal Hui MD Active TRAZODONE HCL 50 MG TABS 1/2 tab po qd prn for anxiety TRAZODONE HCL 94231118611 No Longer Active Vishal Hui MD Active OMEPRAZOLE 20 MG TBEC 1 po q a.m. 30min prior to first food intake OMEPRAZOLE 13845180277 Active Vishal Hui MD Active RANITIDINE HCL 150 MG CAPS 1 twice a day RANITIDINE HCL 90968136383 Active Luigi Martínez DIVERSITY SPECIALIST Active LINZESS 290 MCG CAPS Take one by mouth daily LINACLOTIDE 92718458359 No Longer Active Vishal Hui MD Active SAPHRIS 5 MG SUBL 1 tab po qd ASENAPINE MALEATE 11333019443 No Longer Active Vishal Hui MD Active ZALEPLON 10 MG CAPS 1 cap po every other night ZALEPLON 09120913558 No Longer Active Vishal Hui MD Active LYRICA 50 MG CAPS 1 tab po TID PREGABALIN 69983372179 No Longer Active Vishal Hui MD Active LORATADINE 10 MG TABS 1 tab po qd LORATADINE 04872568021 No Longer Active Vishal Hui MD Active VERAPAMIL HCL ER 180 MG CR-TABS 1 tab po bid VERAPAMIL HCL 26451892879 No Longer Active Vishal Hui MD Active MIRALAX POWD 1 capfull once daily POLYETHYLENE GLYCOL 3350 38656408166 No Longer Active Vishal Hui MD Active PREDNISONE 20 MG TABS 1 tab po qd PREDNISONE 78493764494 No Longer Active Renzo Thornton DO Active LEVOFLOXACIN 500 MG TABS 1 tab po qd LEVOFLOXACIN 95035199115 No Longer Active Renzo Thornton DO Active BUSPIRONE HCL 15 MG TABS 1 tab po TID BUSPIRONE HCL 16883691773 No Longer Active Renzo Thornton DO Active BENZTROPINE MESYLATE 1 MG TABS 1 tab po qd BENZTROPINE MESYLATE 54936965029 No Longer Active Renzo Thornton DO Active ATENOLOL 25 MG TABS 1 tab po qd ATENOLOL 66531679533 No Longer Active Renzo Thornton DO Active ESCITALOPRAM OXALATE 20 MG TABS 1 tab po qd ESCITALOPRAM OXALATE 88791991090 No Longer Active Renzo Thornton DO Active ADVAIR DISKUS 250-50 MCG/DOSE AEPB 1 puff BID FLUTICASONE-SALMETEROL 56528100435 No Longer Active Renzo Thornton DO Active PREDNISONE 20 MG TAB 2 tabs daily for 3 days, 1 tab daily for 3 days, 1/2 tab daily for 2 days PREDNISONE 29184438751 No Longer Active Vishal Hui MD Active CEFDINIR 300 MG CAPS by mouth twice a day CEFDINIR 71112602345 No Longer Active Vishal Hui MD Active LANSOPRAZOLE 30 MG CPDR 1 cap po qd LANSOPRAZOLE 46278034751 No Longer Active Vishal Hui MD Active BACLOFEN 20 MG TABS 1 tab po tid BACLOFEN 11602214440 No Longer Active Vishal Hui MD Active ADVAIR DISKUS 250-50 MCG/DOSE AEPB 1 puff BID ADVAIR DISKUS 250-50 MCG/DOSE AEPB FLUTICASONE-SALMETEROL Inactive ESCITALOPRAM OXALATE 20 MG TABS 1 tab po qd ESCITALOPRAM OXALATE 20 MG TABS 951285 ESCITALOPRAM OXALATE Inactive ATENOLOL 25 MG TABS 1 tab po qd ATENOLOL 25 MG TABS 016903 ATENOLOL Inactive BENZTROPINE MESYLATE 1 MG TABS 1 tab po qd BENZTROPINE MESYLATE 1 MG TABS 958921 BENZTROPINE MESYLATE Inactive BUSPIRONE HCL 15 MG TABS 1 tab po TID BUSPIRONE HCL 15 MG TABS 178746 BUSPIRONE HCL Inactive LEVOFLOXACIN 500 MG TABS 1 tab po qd LEVOFLOXACIN 500 MG TABS 605872 LEVOFLOXACIN Inactive PREDNISONE 20 MG TABS 1 tab po qd PREDNISONE 20 MG TABS 806363 PREDNISONE Inactive MIRALAX POWD 1 capfull once daily MIRALAX POWD 292396 POLYETHYLENE GLYCOL 3350 Inactive VERAPAMIL HCL ER 180 MG CR-TABS 1 tab po bid VERAPAMIL HCL ER 180 MG CR-TABS VERAPAMIL HCL Inactive LORATADINE 10 MG TABS 1 tab po qd LORATADINE 10 MG TABS 598497 LORATADINE Inactive LYRICA 50 MG CAPS 1 tab po TID LYRICA 50 MG CAPS PREGABALIN Inactive ZALEPLON 10 MG CAPS 1 cap po every other night ZALEPLON 10 MG CAPS 691064 ZALEPLON Inactive SAPHRIS 5 MG SUBL 1 tab po qd SAPHRIS 5 MG SUBL ASENAPINE MALEATE Inactive TRAZODONE HCL 50 MG TABS 1/2 tab po qd prn for anxiety TRAZODONE HCL 50 MG TABS 146799 TRAZODONE HCL Inactive LATUDA 20 MG TABS Take one by mouth daily LATUDA 20 MG TABS LURASIDONE HCL Inactive LISINOPRIL 20 MG TABS 1 tab po qd LISINOPRIL 20 MG TABS 268057 LISINOPRIL Inactive SAPHRIS 10 MG SUBL 1 [...] twice daily BACTRIM DS 800-160 MG TAB 134919 TRIMETHOPRIM-SULFAMETHOXAZOLE Inactive MULTIVITAMINS CAPS Take one by mouth daily MULTIVITAMINS CAPS MULTIPLE VITAMIN Inactive MELATONIN 3 MG CAPS 2 po q hs MELATONIN 3 MG CAPS 317864 MELATONIN Inactive KEFLEX 500 MG ORAL CAPS 1 cap QID by mouth KEFLEX 500 MG ORAL CAPS 241482 CEPHALEXIN Inactive CLINDAMYCIN HCL 150 MG CAPS 1 four times a day CLINDAMYCIN HCL 150 MG CAPS 313145 CLINDAMYCIN HCL Inactive DIFLUCAN 150 MG TAB 1 tablet by mouth daily DIFLUCAN 150 MG TAB 393522 FLUCONAZOLE Inactive PROZAC 20 MG CAP Take one by mouth daily PROZAC 20 MG CAP 585313 FLUOXETINE HCL Inactive IBUPROFEN 600 MG TAB 1 po TID PRN IBUPROFEN 600 MG TAB 818356 IBUPROFEN Inactive VYVANSE 40 MG CAPS 1 daily, VYVANSE 40 MG CAPS LISDEXAMFETAMINE DIMESYLATE Inactive TRAZODONE HCL 100 MG TAB take 1 at bedtime TRAZODONE HCL 100 MG TAB 399206 TRAZODONE HCL Inactive AMITRIPTYLINE HCL 100 MG TAB one at hs AMITRIPTYLINE HCL 100 MG TAB 015026 AMITRIPTYLINE HCL Inactive AMLODIPINE BESYLATE 5 MG TABS 1 tablet by mouth daily AMLODIPINE BESYLATE 5 MG TABS 876572 AMLODIPINE BESYLATE Inactive LATUDA 80 MG TABS Take one by mouth daily LATUDA 80 MG TABS LURASIDONE HCL Inactive SAPHRIS 5 MG SUBL 1 po bid SAPHRIS 5 MG SUBL ASENAPINE MALEATE Inactive PREDNISONE 20 MG TAB 2 tabs daily for 4 days, 1 tab daily for 4 days, 1/2 tab daily for 4 days PREDNISONE 20 MG TAB 670098 PREDNISONE Inactive AMBIEN 5 MG ORAL TABS 1 tab at bedtime AMBIEN 5 MG ORAL TABS 633834 ZOLPIDEM TARTRATE Inactive PROZAC 20 MG ORAL CAPS 1 tab daily PROZAC 20 MG ORAL CAPS 147052 FLUOXETINE HCL Inactive ABILIFY 15 MG ORAL TABS 1 tab daily ABILIFY 15 MG ORAL TABS 924449 ARIPIPRAZOLE Inactive METOPROLOL TARTRATE 50 MG TAB 1 po bid METOPROLOL TARTRATE 50 MG TAB 215069 METOPROLOL TARTRATE Inactive TRAMADOL HCL 50 MG TABS 1-2 po TID PRN Pain TRAMADOL HCL 50 MG TABS 137559 TRAMADOL HCL Inactive PIROXICAM 20 MG CAPS 1 cap po qd PRN Pain PIROXICAM 20 MG CAPS 093717 PIROXICAM Inactive MINIPRESS 2 MG CAPS 4 cap po at night MINIPRESS 2 MG CAPS 822941 PRAZOSIN HCL Inactive MIRALAX PACK 1 po qd PRN Constipation MIRALAX PACK 481933 POLYETHYLENE GLYCOL 3350 Inactive METOPROLOL TARTRATE 25 MG ORAL TABS 1/2 tablet twice daily for heart rate and blood pressure METOPROLOL TARTRATE 25 MG ORAL TABS 059335 METOPROLOL TARTRATE Inactive VALIUM 5 MG TAB Take 1-2 tablets daily VALIUM 5 MG TAB 191656 DIAZEPAM Inactive FLAGYL 500 MG TAB 1 tablet by mouth bid FLAGYL 500 MG TAB 904580 METRONIDAZOLE Inactive DICLOFENAC POTASSIUM TABS Take 1 tablet twice a day (pt. is not sure of the dose.) DICLOFENAC POTASSIUM TABS DICLOFENAC POTASSIUM TABS Inactive ZITHROMAX Z-EARNEST 250 MG TABS 2 today and then 1 daily for 4 days ZITHROMAX Z-EARNEST 250 MG TABS 9853767 AZITHROMYCIN Inactive PREDNISONE 20 MG TABS 2 daily for 5 days then 1 daily for 5 days PREDNISONE 20 MG TABS 421889 PREDNISONE Inactive PROAIR HFA 108 (90 BASE) MCG/ACT AERS 2 puffs four times a day as needed 2015 PROAIR HFA 108 (90 BASE) MCG/ACT AERS ALBUTEROL SULFATE Inactive HYDROCODONE-ACETAMINOPHEN 5-325 MG TABS 1 to 2 four times a day as needed for pain use until can be seen by specialist HYDROCODONE- ACETAMINOPHEN 5-325 MG TABS 083542 HYDROCODONE-ACETAMINOPHEN Inactive CEFDINIR 300 MG CAPS by mouth twice a day CEFDINIR 300 MG CAPS 708875 CEFDINIR Inactive PREDNISONE 20 MG TAB 2 tabs daily for 3 days, 1 tab daily for 3 days, 1/2 tab daily for 2 days PREDNISONE 20 MG TAB 205079 PREDNISONE Inactive BACTRIM DS 800-160 MG TABS 1 po BID x 7 days BACTRIM DS 800-160 MG TABS 890371 SULFAMETHOXAZOLE-TRIMETHOPRIM Inactive DIFLUCAN 150 MG TABS 1 pill every other day x 2 doses DIFLUCAN 150 MG TABS 175980 FLUCONAZOLE Inactive BACTRIM DS 800-160 MG TABS 1 pill by mouth twice daily BACTRIM DS 800-160 MG TABS 320150 SULFAMETHOXAZOLE-TRIMETHOPRIM Inactive KEFLEX 500 MG CAP 1 po TID x 10 days KEFLEX 500 MG CAP 725472 CEPHALEXIN Inactive Advance Directives Directive Description Start [...] % 11.6-14.8 platelet count 394 10^3/MM^3 10*3/mm3 592-093 4699/01/11 leukocyte count, blood 13.8 10^3/MM^3 10*3/mm3 4.6-10.2 [...] Panel - Chemistry sodium, serum 139 mmol/L 591-400 4654/12/03 carbon dioxide, venous blood 28.5 mmol/L 21.0-32.0 [...] 5.5 % 4.3-6.0 cholesterol, serum 159 mg/dL 727-848 0611/12/03 triglyceride, serum, fasting 118 mg/dL 30-200 HDL [...] Panel - Chemistry sodium, serum 139 mmol/L 044-527 6396/12/22 carbon dioxide, venous blood 26.8 mmol/L 21.0-32.0 potassium, serum 4.2 mmol/L 3.5-5.2 chloride, serum 103 mmol/L 98-107 blood glucose 115 mg/dL 65-110 urea nitrogen, blood 20 mg/dL 7-18 creatinine, serum 0.90 mg/dL 0.55-1.30 alanine aminotransferase (SGPT), serum 38 U/L aspartate aminotransferase (SGOT), serum 19 U/L 15-37 calcium, serum 8.6 mg/dL 8.5-10.1 bilirubin, serum, total 0.30 mg/dL 0.00-1.00 sodium, serum 139 mmol/L 687-329 7582/01/11 carbon dioxide, venous blood 26.6 mmol/L 21.0-32.0 potassium, serum 4.1 mmol/L 3.5-5.2 chloride, serum 100 mmol/L 98-107 blood glucose 86 mg/dL 65-110 urea nitrogen, blood 16 mg/dL 7-18 creatinine, serum 1.00 mg/dL 0.55-1.30 alanine aminotransferase (SGPT), serum 48 U/L aspartate aminotransferase (SGOT), serum 17 U/L 15-37 calcium, serum 9.1 mg/dL 8.5-10.1 bilirubin, serum, total 0.40 mg/dL 0.00-1.00 sodium, serum 142 mmol/L 035-393 8499/06/08 carbon dioxide, venous blood 27.6 mmol/L 21.0-32.0 potassium, serum 4.0 mmol/L 3.5-5.2 chloride, serum 105 mmol/L 98-107 blood glucose 95 mg/dL 65-110 urea nitrogen, blood 8 mg/dL 7-18 creatinine, serum 0.75 mg/dL 0.55-1.30 alanine aminotransferase (SGPT), serum 49 U/L 12-78 aspartate aminotransferase (SGOT), serum 28 U/L 15-37 calcium, serum 9.4 mg/dL 8.5-10.1 bilirubin, serum, total 0.30 mg/dL 0.00-1.00 sodium, serum 140 mmol/L 581-725 7476/08/08 carbon dioxide, venous blood 33.7 mmol/L 21.0-32.0 [...] Rate - Chemistry sodium, serum 139 mmol/L 169-871 3697/12/11 carbon dioxide, venous blood 25.4 mmol/L 21.0-32.0 [...] mg/dL Encounters Code Encounter Date Provider Facility CPT-59719 Level 3 Est. Patient 13:59:59 CDT Luigi Martínez [facility] CPT-15759 Level 3 Est. Patient 18:18:53 CDT Neeraj Collins MD [facility] CPT-14497 Level 3 Est. Patient 15:50:44 CDT Vishal Hui MD [facility] CPT-65703 Level 3 Est. Patient 11:36:17 CDT Ahmet Carbajal MD [facility] CPT-00851 Level 3 Est. Patient 13:29:16 CDT Vishal Hui MD [facility] CPT-42364 Level 3 Est. Patient 14:27:52 CDT Neeraj Collins MD [facility] CPT-95225 Level 3 Est. Patient 08:56:03 CDT Luigi Martínez [facility] CPT-39095 Level 4 Est. Patient 12:11:48 CDT Fabiola Johnson [facility] CPT-59120 Level 3 New Patient 16:53:37 CDT Albert Caldera MD [facility] CPT-52183 Level 3 Est. Patient 11:25:49 CDT Renzo Thornton DO [facility] CPT-08044 Level 3 Est. Patient 15:22:01 CDT Ahmet Carbajal MD [facility] CPT-49831 Level 4 Est. Patient 09:00:51 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 Vishal Hui MD [facility] CPT-36729 Level 3 Est. Patient 11:37:33 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 Vishal Hui MD [facility] CPT-27710 Level 3 Est. Patient 08:41:09 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 Vishal Hui MD [facility] CPT-06797 Level 4 Est. Patient 10:19:35 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 Vishal Hui MD [facility] CPT-12945 Level 3 Est. Patient 13:35:45 CDT Vishal Hui MD [facility] CPT-61946 Level 4 Est. Patient 10:08:37 CDT Vishal Hui MD [facility] CPT-83182 Level 3 Est. Patient 11:22:10 CDT Vishal Hui MD [facility] CPT-34395 Level 3 Est. Patient 11:03:32 CDT Sahara Rodriguez MD [facility]-47881 Level 3 Est. Patient 09:41:35 CDT Vishal Hui MD [facility] CPT-18652 Level 3 Est. Patient 12:00:41 CDT Neeraj Collins MD [facility] CPT-28429 Level 3 Est. Patient 09:16:24 CDT Vishal Hui MD [facility] CPT-83808 Level 4 Est. Patient 13:59:09 CDT Neeraj Collins MD [facility] CPT-09720 Level 3 Est. Patient 15:19:43 CDT Renzo Thornton DO [facility] CPT-23298 Level 3 Est. Patient 18:10:26 CDT Sahara Rodriguez MD [facility]-39799 Level 3 Est. Patient 14:49:50 CDT Vishal Hui MD [facility] CPT-82919 Level 4 Est. Patient 18:41:46 CDT Neeraj Collins MD [facility] CPT-02699 Level 4 Est. Patient 09:18:38 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 Vishal Hui MD [facility] CPT-65045 Level 3 Est. Patient 14:43:55 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 Vishal Hui MD [facility]-19309 Level 3 Est. Patient 15:26:33 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 Sahara Rodriguez MD [facility] CPT-60239 Level 3 Est. Patient 10:32:14 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 Vishal Hui MD [facility] CPT-12416 Level 3 Est. Patient 15:12:52 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 Vishal Hui MD [facility] CPT-26920 Level 4 Est. Patient 09:19:27 CDT Vishal Hui MD [facility] CPT-02689 Level 3 Est. Patient 15:53:00 CDT Renzo Barajas [facility] CPT-67467 Level 3 Est. Patient 15:50:30 CDT Renzo Barajas Norberto [facility] CPT-87152 Level 3 Est. Patient 16:55:24 CDT Vishal Hui MD [facility] Procedures Code Procedure Name Date Entry Date Standard Description CPT-67056 Abx/Therapy Injection 13:54:22 CDT CPT-07633 Abx/Therapy Injection 08:47:09 CDT CPT-27204 Abx/Therapy Injection 13:29:56 CDT CPT-11327 Abx/Therapy Injection 08:36:16 CDT CPT-78695 Wet Mount - LAB USE ONLY 17:44:58 CDT CPT-25537 UA w micro - LAB USE ONLY 17:44:58 CDT CPT-54480 CMP - LAB USE ONLY 17:44:58 CDT CPT-87392 Venipuncture Draw Fee 17:44:58 CDT CPT-23417 Cervical Min 4V - XRAY USE ONLY 09:01:40 CDT CPT-68556 Chest 2V Frontal and Lat - XRAY USE ONLY 11:06:31 CDT CPT-20397 EKG Trac and Interp - XRAY USE ONLY 11:31:43 CDT 08/26 CPT-J3420 Vitamin B12 1000mcg (Cyanocobalamin) 08:10:26 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 04/12 CPT-29023 Abx/Therapy Injection 08:10:26 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 CPT-G0438 Initial Annual Wellness Exam 19:01:01 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 CPT-J3420 Vitamin B12 1000mcg (Cyanocobalamin) 16:57:46 CDT 08/14 CPT-69545 Recombivax HB Injection Suspension 5 MCG/0.5ML 08:37:50 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 CPT-20687 Immunization Single Admin 08:37:50 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 CPT-J3420 Vitamin B12 1000mcg (Cyanocobalamin) 08:32:16 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 03/11 CPT-87364 Abx/Therapy Injection 08:32:16 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 CPT-99525 Chest 2V Frontal and Lat 11:46:38 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 CPT-36059 Venipuncture Draw Fee 09:12:45 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 CPT-J3420 Vitamin B12 1000mcg (Cyanocobalamin) 08:50:15 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 02/08 CPT-76777 Abx/Therapy Injection 08:50:15 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 CPT-Cryo Cryotherapy 10:19:35 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 CPT-000 Give Appropriate Flu Vaccine 09:22:16 CDT CPT-J3420 Vitamin B12 1000mcg (Cyanocobalamin) 19:08:57 CDT 01/11 CPT-90566 Abx/Therapy Injection 19:08:57 CDT CPT-J3420 Vitamin B12 1000mcg (Cyanocobalamin) 08:19:08 CDT 12/11 CPT-16487 Abx/Therapy Injection 08:19:08 CDT CPT-J3420 Vitamin B12 1000mcg (Cyanocobalamin) 14:48:00 CDT 11/09 CPT-44718 Abx/Therapy Injection 14:47:59 CDT CPT-J3420 Vitamin B12 1000mcg (Cyanocobalamin) 08:34:04 CDT 10/09 CPT-96668 Abx/Therapy Injection 08:34:04 CDT CPT-J3420 Vitamin B12 1000mcg (Cyanocobalamin) 09:18:52 CDT 09/11 CPT-62153 Abx/Therapy Injection 09:18:52 CDT CPT-J3420 Vitamin B12 1000mcg (Cyanocobalamin) 08:35:44 CDT 09/04 CPT-65659 Abx/Therapy Injection 08:35:44 CDT CPT-09374 Immunization Single Admin 11:07:16 CDT CPT-91361 Hepatitis B adult IM 11:07:16 CDT CPT-J3420 Vitamin B12 1000mcg (Cyanocobalamin) 11:00:49 CDT 08/28 CPT-J1040 Depo Medrol 80 mg (Methyl Prednisolone Acetate) 11:00: 49 CDT CPT-67113 Abx/Therapy Injection 11:00:49 CDT CPT-J1040 Depo Medrol 80 mg (Methyl Prednisolone Acetate) 09:16: 23 CDT CPT-J3420 Vitamin B12 1000mcg (Cyanocobalamin) 08:27:05 CDT 08/20 CPT-90211 Abx/Therapy Injection 08:27:05 CDT CPT-90996 Recombivax HB Injection Suspension 5 MCG/0.5ML 10:00:41 CDT CPT-75895 Administration single or combination vaccine inc oral 10 :00:41 CDT CPT-86524 Sono transvag pelvis non OB uterus ovaries cervix 16:36: 57 CDT CPT-64126 LS spine comp w obliq 09:50:55 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 CPT-75591 Abd compl w upright 09:50:55 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 CPT-J1100 Decadron 4mg (Dexamethasone) 15:51:24 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 CPT-J1030 Depo Medrol 40 mg (Methyl Prednisolone Acetate) 15:51: 24 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
--- OUTSIDE RECORDS SUMMARY | 2016-11-04 21:41 | XMS REPORT | Clinical Summary ---
Author Author Admin, E Organization [employer] Address Unknown Phone Unavailable Allergies, Adverse Reactions, [...] 266.2 Active Marlena Trevino Other B-complex deficiencies Flank pain, right ICD-789.09 Inactive Vishal Hui [...] 1 four times a day CLINDAMYCIN HCL 01740400680 No Longer Active Neeraj Collins MD Active KEFLEX 500 MG ORAL CAPS 1 cap QID by mouth CEPHALEXIN 60442586585 No Longer Active Neeraj Collins MD Active DIFLUCAN 150 MG TABS 1 pill every other day x 2 doses FLUCONAZOLE 69244326730 No Longer Active Sahara Rodriguez MD PhD Active MELATONIN 3 MG CAPS 2 po q hs MELATONIN 52550670469 No Longer Active Sahara Rodriguez MD PhD Active MULTIVITAMINS CAPS Take one by mouth daily MULTIPLE VITAMIN 57288905968 No Longer Active Sahara Rodriguez MD PhD Active BACTRIM DS 800-160 MG TAB 1 tab by mouth twice daily TRIMETHOPRIM-SULFAMETHOXAZOLE 86613490650 No Longer Active Sahara Rodriguez MD PhD Active [facility] PROBIOTIC ORAL CHEW 2 daily po PROBIOTIC PRODUCT 24974594381 No Longer Active Sahara Rodriguez MD PhD Active IBUPROFEN 600 MG TAB 1 po TID PRN IBUPROFEN 66682573867 Active Luigi Martínez TERMINAL CLERK Active BACTRIM DS 800-160 MG TABS 1 po BID x 7 days SULFAMETHOXAZOLE-TRIMETHOPRIM 94806988371 No Longer Active Vishal Hui MD Active CHANTIX STARTING MONTH EARNEST 0.5 MG X 11 & 1 MG X 42 TABS 0.5mg daily for 3 days , then 0.5mg BID for 4 days, then 1mg BID VARENICLINE TARTRATE 76040977141 No Longer Active TAMARA Gray Active METOPROLOL TARTRATE 50 MG TAB 1 po bid METOPROLOL TARTRATE 17815936743 Active Vishal Hui MD Active TRAZODONE HCL 100 MG TAB take 1 at bedtime TRAZODONE HCL 28075101469 Active Vishal Hui MD Active AMLODIPINE BESYLATE 5 MG TABS 1 tablet by mouth daily AMLODIPINE BESYLATE 48164410138 Active Vishal Hui MD Active VERAPAMIL HCL CR 120 MG TAB CR 1 po bid VERAPAMIL HCL 52174741442 No Longer Active Vishal Hui MD Active METOPROLOL SUCCINATE 50 MG TB24 1 tablet by mouth daily METOPROLOL SUCCINATE 19290878794 No Longer Active Vishal Hui MD Active TRAMADOL HCL 50 MG TABS 1-2 po TID PRN Pain TRAMADOL HCL 99534751002 Active Vishal Hui MD Active SAPHRIS 5 MG SUBL 1 po bid ASENAPINE MALEATE 04769118187 Active Vishal Hui MD Active SAPHRIS 10 MG SUBL 1 tab po bid ASENAPINE MALEATE 37944088176 No Longer Active Vishal Hui MD Active LISINOPRIL 20 MG TABS 1 tab po qd LISINOPRIL 06476744653 No Longer Active Vishal Hui MD Active BENADRYL 25 MG CAP 2 po tid prn anxiety DIPHENHYDRAMINE HCL 94987328569 Active Vishal Hui MD Active LATUDA 80 MG TABS Take one by mouth daily LURASIDONE HCL 87421816565 Active Vishal Hui MD Active LATUDA 20 MG TABS Take one by mouth daily LURASIDONE HCL 27943428251 No Longer Active Vishal Hui MD Active TRAZODONE HCL 50 MG TABS 1/2 tab po qd prn for anxiety TRAZODONE HCL 08068127119 No Longer Active Vishal Hui MD Active PIROXICAM 20 MG CAPS 1 cap po qd PRN Pain PIROXICAM 03584491421 Active Vishal Hui MD Active OMEPRAZOLE 20 MG TBEC 1 po q a.m. 30min prior to first food intake OMEPRAZOLE 17518921718 Active Vishal Hui MD Active RANITIDINE HCL 150 MG CAPS 1 twice a day RANITIDINE HCL 34690048670 Active Vishal Hui MD Active PROZAC 20 MG CAP Take one by mouth daily FLUOXETINE HCL 48669675147 Active Vishal Hui MD Active LINZESS 290 MCG CAPS Take one by mouth daily LINACLOTIDE 14727248939 Active Vishal Hui MD Active SAPHRIS 5 MG SUBL 1 tab po qd ASENAPINE MALEATE 66328259354 No Longer Active Vishal Hui MD Active ZALEPLON 10 MG CAPS 1 cap po every other night ZALEPLON 56420797969 No Longer Active Vishal Hui MD Active LYRICA 50 MG CAPS 1 tab po TID PREGABALIN 21076526678 No Longer Active Vishal Hui MD Active LORATADINE 10 MG TABS 1 tab po qd LORATADINE 02979027818 No Longer Active Vishal Hui MD Active VERAPAMIL HCL ER 180 MG CR-TABS 1 tab po bid VERAPAMIL HCL 53579251038 No Longer Active Vishal Hui MD Active MIRALAX POWD 1 capfull once daily POLYETHYLENE GLYCOL 3350 91476487419 No Longer Active Vishal Hui MD Active PREDNISONE 20 MG TABS 1 tab po qd PREDNISONE 59713186845 No Longer Active Renzo Thornton DO Active LEVOFLOXACIN 500 MG TABS 1 tab po qd LEVOFLOXACIN 03636858380 No Longer Active Renzo Thornton DO Active BUSPIRONE HCL 15 MG TABS 1 tab po TID BUSPIRONE HCL 17460649917 No Longer Active Renzo Thornton DO Active BENZTROPINE MESYLATE 1 MG TABS 1 tab po qd BENZTROPINE MESYLATE 58893139769 No Longer Active Renzo Thornton DO Active ATENOLOL 25 MG TABS 1 tab po qd ATENOLOL 93870656230 No Longer Active Renzo Thornton DO Active ESCITALOPRAM OXALATE 20 MG TABS 1 tab po qd ESCITALOPRAM OXALATE 41650677398 No Longer Active Renzo Thornton DO Active ADVAIR DISKUS 250-50 MCG/DOSE AEPB 1 puff BID FLUTICASONE-SALMETEROL 12339985331 No Longer Active Renzo Thornton DO Active PREDNISONE 20 MG TAB 2 tabs daily for 3 days, 1 tab daily for 3 days, 1/2 tab daily for 2 days PREDNISONE 74079410013 No Longer Active Vishal Hui MD Active CEFDINIR 300 MG CAPS by mouth twice a day CEFDINIR 44761058586 No Longer Active Vishal Hui MD Active LANSOPRAZOLE 30 MG CPDR 1 cap po qd LANSOPRAZOLE 58731848557 No Longer Active Vishal Hui MD Active TOPAMAX 25 MG TABS 1 tab po bid TOPIRAMATE 51521186931 Active Vishal Hui MD Active MINIPRESS 2 MG CAPS 1 cap po at night PRAZOSIN HCL 47312018273 Active Vishal Hui MD Active BACLOFEN 20 MG TABS 1 tab po tid BACLOFEN 88788505701 Active Vishal Hui MD Active ADVAIR DISKUS 250-50 MCG/DOSE AEPB 1 puff BID ADVAIR DISKUS 250-50 MCG/DOSE AEPB FLUTICASONE-SALMETEROL Inactive ESCITALOPRAM OXALATE 20 MG TABS 1 tab po qd ESCITALOPRAM OXALATE 20 MG TABS 782252 ESCITALOPRAM OXALATE Inactive ATENOLOL 25 MG TABS 1 tab po qd ATENOLOL 25 MG TABS 421999 ATENOLOL Inactive BENZTROPINE MESYLATE 1 MG TABS 1 tab po qd BENZTROPINE MESYLATE 1 MG TABS 790842 BENZTROPINE MESYLATE Inactive BUSPIRONE HCL 15 MG TABS 1 tab po TID BUSPIRONE HCL 15 MG TABS 573045 BUSPIRONE HCL Inactive LEVOFLOXACIN 500 MG TABS 1 tab po qd LEVOFLOXACIN 500 MG TABS 509532 LEVOFLOXACIN Inactive PREDNISONE 20 MG TABS 1 tab po qd PREDNISONE 20 MG TABS 781313 PREDNISONE Inactive MIRALAX POWD 1 capfull once daily MIRALAX POWD 369297 POLYETHYLENE GLYCOL 3350 Inactive VERAPAMIL HCL ER 180 MG CR-TABS 1 tab po bid VERAPAMIL HCL ER 180 MG CR-TABS VERAPAMIL HCL Inactive LORATADINE 10 MG TABS 1 tab po qd LORATADINE 10 MG TABS 662671 LORATADINE Inactive LYRICA 50 MG CAPS 1 tab po TID LYRICA 50 MG CAPS PREGABALIN Inactive ZALEPLON 10 MG CAPS 1 cap po every other night ZALEPLON 10 MG CAPS 162037 ZALEPLON Inactive SAPHRIS 5 MG SUBL 1 tab po qd SAPHRIS 5 MG SUBL ASENAPINE MALEATE Inactive TRAZODONE HCL 50 MG TABS 1/2 tab po qd prn for anxiety TRAZODONE HCL 50 MG TABS 357902 TRAZODONE HCL Inactive LATUDA 20 MG TABS Take one by mouth daily LATUDA 20 MG TABS LURASIDONE HCL Inactive LISINOPRIL 20 MG TABS 1 tab po qd LISINOPRIL 20 MG TABS 345189 LISINOPRIL Inactive SAPHRIS 10 MG SUBL 1 [...] po q hs MELATONIN 3 MG CAPS 828114 MELATONIN Inactive KEFLEX 500 MG ORAL CAPS 1 cap QID by mouth KEFLEX 500 MG ORAL CAPS 140519 CEPHALEXIN Inactive CLINDAMYCIN HCL 150 MG CAPS 1 four times a day CLINDAMYCIN HCL 150 MG CAPS 777006 CLINDAMYCIN HCL Inactive CEFDINIR 300 MG CAPS by mouth twice a day CEFDINIR 300 MG CAPS 596886 CEFDINIR Inactive PREDNISONE 20 MG TAB 2 tabs daily for 3 days, 1 tab daily for 3 days, 1/2 tab daily for 2 days PREDNISONE 20 MG TAB 561382 PREDNISONE Inactive BACTRIM DS 800-160 MG TABS 1 po BID x 7 days BACTRIM DS 800-160 MG TABS SULFAMETHOXAZOLE-TRIMETHOPRIM Inactive DIFLUCAN 150 MG TABS 1 pill every other day x 2 doses DIFLUCAN 150 MG TABS 523651 FLUCONAZOLE Inactive Vital Signs Date Name Value [...] ... - Chemistry sodium, serum 140 mmol/L 279-740 3377/05/28 potassium, serum 4.2 mmol/L 3.5-5.2 chloride, serum 104 mmol/L 98-107 carbon dioxide, venous blood 28.3 mmol/L 21.0-32.0 blood glucose 101 mg/dL 65-110 urea nitrogen, blood 19 mg/dL 7-18 creatinine, serum 1.10 mg/dL 0.60-1.30 alanine aminotransferase (SGPT), serum 31 U/L 12- aspartate aminotransferase (SGOT), serum 18 U/L 15- calcium, serum 8.2 mg/dL 8.5-10.1 bilirubin, serum, [...] Panel - Chemistry sodium, serum 141 mmol/L 942-978 5265 creatinine, serum 0.90 mg/dL 0.60-1.30 alanine aminotransferase [...] Panel - Chemistry sodium, serum 139 mmol/L 829-638 5124/12/31 creatinine, serum 1.00 mg/dL 0.60-1.30 alanine aminotransferase (SGPT), serum 41 U/L 12-78 aspartate aminotransferase (SGOT), serum 17 U/L 15-37 calcium, serum 8.6 mg/dL 8.5-10.1 bilirubin, serum, total 0.30 mg/dL 0.00-1.00 cholesterol, serum 108 mg/dL 832-760 3017/12/31 triglyceride, serum, fasting 120 mg/dL 30-200 HDL [...] Report: UADIP W/MICRO, AUTO, UHCG - Urinalysis glucose, urine, semiquantitative Negative Negative appearance, urine Clear Clear specific gravity, urine 1.025 1.000-1.030 pH, urine, semiquantitative 7.0 5.0-8.5 urobilinogen, urine, semiquantitative (dipstick) 0.2 Normal leukocyte esterase, urine, by dipstick Negative Negative nitrite, urine, semiquantitative Negative Negative urine color Yellow Colorless;Lightyellow;Straw;Yellow ketones, urine, by test strip Negative Negative bilirubin, urine Negative Negative Lab Report: Varicella-Zoater Inga IgG,IgM/82096, HEP Be Antibody/556, RUB ... - Serology rubella antibody, serum, IgG 2.88 Encounters Code Encounter Date Provider Facility CPT-38733 Level 4 Est. Patient 13:59:09 CDT Neeraj Collins MD [facility] CPT-35456 Level 3 Est. Patient 15:19:43 CDT Renzo Thornton DO [facility] CPT-15012 Level 3 Est. Patient 18:10:26 CDT Sahara Rodriguez MD PhD [facility] CPT-77345 Level 3 Est. Patient 14:49:50 CDT Vishal Hui MD [facility] CPT-32720 Level 4 Est. Patient 18:41:46 CDT Neeraj Collins MD [facility] CPT-08419 Level 4 Est. Patient 09:18:38 HELIARC WELDER Vishal Hui MD [facility]-99343 Level 3 Est. Patient 14:43:55 HELIARC WELDER Vishal Hui MD [facility] CPT-66699 Level 3 Est. Patient 15:26:33 HELIARC WELDER Sahara Rodriguez MD PhD [facility] CPT-60967 Level 3 Est. Patient 10:32:14 HELIARC WELDER Vishal Hui MD [facility] CPT-66949 Level 3 Est. Patient 15:12:52 HELIARC WELDER Vishal Hui MD [facility] CPT-42284 Level 4 Est. Patient 09:19:27 CDT Vishal Hui MD [facility] CPT-37780 Level 3 Est. Patient 15:53:00 CDT Renzo Thornton [facility] CPT-52480 Level 3 Est. Patient 15:50:30 CDT Renzo Thornton [facility] CPT-57516 Level 3 Est. Patient 16:55:24 CDT Vishal Hui MD [facility] Procedures Code Procedure Name Date Entry Date Standard Description CPT-53087 Recombivax HB Injection Suspension 5 MCG/0.5ML 10:00:41 CDT CPT-10258 Administration single or combination vaccine inc oral 10 :00:41 CDT CPT-82050 Sono transvag pelvis non OB uterus ovaries cervix 16:36: 57 CDT CPT-99728 LS spine comp w obliq 09:50:55 HELIARC WELDER CPT-00420 Abd compl w upright 09:50:55 HELIARC WELDER CPT-J1100 Decadron 4mg (Dexamethasone) 15:51:24 HELIARC WELDER CPT-J1030 Depo Medrol 40 mg (Methyl Prednisolone Acetate) 15:51: 24 HELIARC WELDER CPT-17089 Abx/Therapy Injection 15:51:24 HELIARC WELDER CPT-J1100 Decadron 4mg (Dexamethasone) 15:26:33 HELIARC WELDER CPT-J1030 Depo Medrol 40 mg (Methyl Prednisolone Acetate) 15:26: 33 HELIARC WELDER CPT-83417 Sono retroperitoneal complete kidneys and bladder 17:15: 30 CDT CPT-13537 Abd compl w upright 16:09:25 CDT CPT-J1100 Decadron 8mg (Dexamethasone) 17:07:57 CDT CPT-66849 Abx/Therapy Injection 17:07:57 CDT CPT-J1100 Decadron 8mg (Dexamethasone) 16:55:24 CDT CPT-77068 Chest 2V Frontal and Lat 16:32:44 CDT
--- OUTSIDE RECORDS SUMMARY | 2016-11-04 21:44 | XMS REPORT | Clinical Summary ---
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 Hypoxemia Neck pain 723.1 Resolved Vishal [...] times daily as needed for cough BENZONATATE 35313129687 Active Vishal Hui MD Active METHYLPREDNISOLONE 4 MG ORAL TABS po daily METHYLPREDNISOLONE 32323770960 Active Vishal Hui MD Active LEVOFLOXACIN 500 MG ORAL TABS po daily LEVOFLOXACIN 67248183704 Active Vishal Hui MD Active CHANTIX STARTING MONTH EARNEST 0.5 MG X 11 & 1 MG X 42 TABS take as directed 2015 VARENICLINE TARTRATE 99180403384 Active Ahmet Carbajal MD Active CHANTIX 1 MG TABS 1 twice a day to help quit smoking VARENICLINE TARTRATE 74002261296 Active Ahmet Carbajal MD Active HYDROCODONE-ACETAMINOPHEN 5-325 MG TABS 1 to 2 four times a day as needed for pain use until can be seen by specialist HYDROCODONE- ACETAMINOPHEN 67119486535 No Longer Active Vishal Hui MD Active PROAIR HFA 108 (90 BASE) MCG/ACT AERS 2 puffs four times a day as needed 2015 ALBUTEROL SULFATE 27421669806 No Longer Active Vishal Hui MD Active PREDNISONE 20 MG TABS 2 daily for 5 days then 1 daily for 5 days PREDNISONE 09494515261 No Longer Active Vishal Hui MD Active ZITHROMAX Z-EARNEST 250 MG TABS 2 today and then 1 daily for 4 days AZITHROMYCIN 35062335646 No Longer Active Vishal Hui MD Active DICLOFENAC SODIUM 50 MG TBEC 1 tablet by mouth four times daily PRN Pain 2015 DICLOFENAC SODIUM 26433512542 Active Vishal Hui MD Active DICLOFENAC POTASSIUM TABS Take 1 tablet twice a day (pt. is not sure of the dose.) DICLOFENAC POTASSIUM TABS 30807878848 No Longer Active Vishal Hui MD Active VERAPAMIL HCL ER 120 MG ORAL CR-TABS Take 1 tablet by mouth twice a day. 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 FLUTICASONE PROPIONATE 74476210668 Active Fabiola Johnson FLASH DESIGNER Active ADZENYS XR-ODT 6.3 MG ORAL TBED 1 tab po daily for ADHD AMPHETAMINE 38767402872 Active Fabiolaniall Johnson APRN Active BENADRYL 25 MG CAP 4 po at bedtime for insomnia DIPHENHYDRAMINE HCL 67710115324 Active Fabiola Johnson LEANN Active KLONOPIN 1 MG ORAL TABS 1 tab po TID CLONAZEPAM 44490513813 Active Fabiolaniall Johnson APRN Active VALIUM 5 MG TAB Take 1-2 tablets daily DIAZEPAM 73879455059 No Longer Active Fabiola Johnson LEANN Active METOPROLOL TARTRATE 25 MG ORAL TABS 1/2 tablet twice daily for heart rate and blood pressure METOPROLOL TARTRATE 24649299475 No Longer Active Fabiolaniall Johnson APRN Active MIRALAX ORAL POWD 17GMS DAILY IN WATER POLYETHYLENE GLYCOL 3350 13040558114 Active Vishal Hui MD Active VIIBRYD 10 MG ORAL TABS Take 1 tablet once a day VILAZODONE HCL 33894922934 Active Ahmet Carbajal MD Active MIRALAX PACK 1 po qd PRN Constipation POLYETHYLENE GLYCOL 3350 74196055068 No Longer Active Ahmet Carbajal MD Active MINIPRESS 2 MG CAPS 4 cap po at night PRAZOSIN HCL 20824829427 No Longer Active Ahmet Carbajal MD Active PIROXICAM 20 MG CAPS 1 cap po qd PRN Pain PIROXICAM 29519221900 No Longer Active Ahmet Carbajal MD Active TRAMADOL HCL 50 MG TABS 1-2 po TID PRN Pain TRAMADOL HCL 99447813076 No Longer Active Ahmet Carbajal MD Active METOPROLOL TARTRATE 50 MG TAB 1 po bid METOPROLOL TARTRATE 77110290976 No Longer Active Ahmet Carbajal MD Active ABILIFY 15 MG ORAL TABS 1 tab daily ARIPIPRAZOLE 29364903498 No Longer Active Ahmet Carbajal MD Active PROZAC 20 MG ORAL CAPS 1 tab daily FLUOXETINE HCL 10313532379 No Longer Active Ahmet Carbajal MD Active AMBIEN 5 MG ORAL TABS 1 tab at bedtime ZOLPIDEM TARTRATE 96984831645 No Longer Active Ahmet Carbajal MD Active PREDNISONE 20 MG TAB 2 tabs daily for 4 days, 1 tab daily for 4 days, 1/2 tab daily for 4 days PREDNISONE 08187551714 No Longer Active Ahmet Carbajal MD Active KEFLEX 500 MG CAP 1 po TID x 10 days CEPHALEXIN 75003462569 No Longer Active Vishal Hui MD Active IMITREX 50 MG ORAL TABS 1/2 tab every 6 hours prn SUMATRIPTAN SUCCINATE 83608832896 Active Jillina Frazell FLASH DESIGNER Active TOPAMAX 50 MG ORAL TABS 1 tab twice daily TOPIRAMATE 93501183146 Active Vishal Hui MD Active SAPHRIS 5 MG SUBL 1 po bid ASENAPINE MALEATE 90113459359 No Longer Active Jillina Frazell FLASH DESIGNER Active LATUDA 80 MG TABS Take one by mouth daily LURASIDONE HCL 20678054264 No Longer Active Jillina Frazell FLASH DESIGNER Active AMLODIPINE BESYLATE 5 MG TABS 1 tablet by mouth daily AMLODIPINE BESYLATE 19325024814 No Longer Active Jillina Fralebron WALTERSN Active AMITRIPTYLINE HCL 100 MG TAB one at hs AMITRIPTYLINE HCL 68867837974 No Longer Active Vishal Hui MD Active TRAZODONE HCL 100 MG TAB take 1 at bedtime TRAZODONE HCL 55917384409 No Longer Active Vishal Hui MD Active VYVANSE 40 MG CAPS 1 daily, LISDEXAMFETAMINE DIMESYLATE 41147755094 No Longer Active Vishal Hui MD Active IBUPROFEN 600 MG TAB 1 po TID PRN IBUPROFEN 76494098060 No Longer Active Vishal Hui MD Active PROZAC 20 MG CAP Take one by mouth daily FLUOXETINE HCL 89405123732 No Longer Active Vishal Hui MD Active ZOFRAN 4 MG TABS 1 po q6hr PRN Nausea ONDANSETRON HCL Active Vishal Hui MD Active BACTRIM DS 800-160 MG TABS 1 pill by mouth twice daily SULFAMETHOXAZOLE-TRIMETHOPRIM 98560381240 No Longer Active Sahara Rodriguez MD PhD Active DIFLUCAN 150 MG TAB 1 tablet by mouth daily FLUCONAZOLE 87223999605 No Longer Active Vishal Hui MD Active TIZANIDINE HCL 4 MG TABS 1 po q6hr PRN Muscle Spasm/Back Pain TIZANIDINE HCL 89906730569 Active Vishal Hui MD Active CLINDAMYCIN HCL 150 MG CAPS 1 four times a day CLINDAMYCIN HCL 93510274876 No Longer Active Neeraj Collins MD Active KEFLEX 500 MG ORAL CAPS 1 cap QID by mouth CEPHALEXIN 58554301662 No Longer Active Neeraj Collins MD Active DIFLUCAN 150 MG TABS 1 pill every other day x 2 doses FLUCONAZOLE 65629980662 No Longer Active Sahara Rodriguez MD PhD Active MELATONIN 3 MG CAPS 2 po q hs MELATONIN 63825949119 No Longer Active Sahara Rodriguez MD PhD Active MULTIVITAMINS CAPS Take one by mouth daily MULTIPLE VITAMIN 33541731624 No Longer Active Sahara Rodriguez MD PhD Active BACTRIM DS 800-160 MG TAB 1 tab by mouth twice daily TRIMETHOPRIM-SULFAMETHOXAZOLE 49569785205 No Longer Active Sahara Rodriguez MD PhD Active [facility] PROBIOTIC ORAL CHEW 2 daily po PROBIOTIC PRODUCT 58338370154 No Longer Active Sahara Rodriguez MD PhD Active BACTRIM DS 800-160 MG TABS 1 po BID x 7 days SULFAMETHOXAZOLE-TRIMETHOPRIM 90776250699 No Longer Active Vishal Hui MD Active CHANTIX STARTING MONTH EARNEST 0.5 MG X 11 & 1 MG X 42 TABS 0.5mg daily for 3 days , then 0.5mg BID for 4 days, then 1mg BID VARENICLINE TARTRATE 94907725166 No Longer Active BERNARD GrayHope Active VERAPAMIL HCL CR 120 MG TAB CR 1 po bid VERAPAMIL HCL 13804884968 No Longer Active Vishal Hui MD Active METOPROLOL SUCCINATE 50 MG TB24 1 tablet by mouth daily METOPROLOL SUCCINATE 46691918072 No Longer Active Vishal Hui MD Active SAPHRIS 10 MG SUBL 1 tab po bid ASENAPINE MALEATE 32057332196 No Longer Active Vishal Hui MD Active LISINOPRIL 20 MG TABS 1 tab po qd LISINOPRIL 01873030985 No Longer Active Vishal Hui MD Active LATUDA 20 MG TABS Take one by mouth daily LURASIDONE HCL 70938309049 No Longer Active Vishal Hui MD Active TRAZODONE HCL 50 MG TABS 1/2 tab po qd prn for anxiety TRAZODONE HCL 55048376715 No Longer Active Vishal Hui MD Active OMEPRAZOLE 20 MG TBEC 1 po q a.m. 30min prior to first food intake OMEPRAZOLE 91399468311 Active Vishal Hui MD Active RANITIDINE HCL 150 MG CAPS 1 twice a day RANITIDINE HCL 87285725514 Active Luigi Martínez APRN Active LINZESS 290 MCG CAPS Take one by mouth daily LINACLOTIDE 95182890253 No Longer Active Vishal Hui MD Active SAPHRIS 5 MG SUBL 1 tab po qd ASENAPINE MALEATE 30967168219 No Longer Active Vishal Hui MD Active ZALEPLON 10 MG CAPS 1 cap po every other night ZALEPLON 25728586352 No Longer Active Vishal Hui MD Active LYRICA 50 MG CAPS 1 tab po TID PREGABALIN 07362055685 No Longer Active Vishal Hui MD Active LORATADINE 10 MG TABS 1 tab po qd LORATADINE 52610206313 No Longer Active Vishal Hui MD Active VERAPAMIL HCL ER 180 MG CR-TABS 1 tab po bid VERAPAMIL HCL 98316164058 No Longer Active Vishal Hui MD Active MIRALAX POWD 1 capfull once daily POLYETHYLENE GLYCOL 3350 12044653391 No Longer Active Vishal Hui MD Active PREDNISONE 20 MG TABS 1 tab po qd PREDNISONE 96807798629 No Longer Active Renzo Thornton DO Active LEVOFLOXACIN 500 MG TABS 1 tab po qd LEVOFLOXACIN 94474139381 No Longer Active Renzo Thornton DO Active BUSPIRONE HCL 15 MG TABS 1 tab po TID BUSPIRONE HCL 86335698740 No Longer Active Renzo Thornton DO Active BENZTROPINE MESYLATE 1 MG TABS 1 tab po qd BENZTROPINE MESYLATE 69137160323 No Longer Active Renzo Thornton DO Active ATENOLOL 25 MG TABS 1 tab po qd ATENOLOL 54767038409 No Longer Active Renzo Thornton DO Active ESCITALOPRAM OXALATE 20 MG TABS 1 tab po qd ESCITALOPRAM OXALATE 45479104718 No Longer Active Renzo Thornton DO Active ADVAIR DISKUS 250-50 MCG/DOSE AEPB 1 puff BID FLUTICASONE-SALMETEROL 36196614528 No Longer Active Renzo Thornton DO Active PREDNISONE 20 MG TAB 2 tabs daily for 3 days, 1 tab daily for 3 days, 1/2 tab daily for 2 days PREDNISONE 31352585417 No Longer Active Vishal Hui MD Active CEFDINIR 300 MG CAPS by mouth twice a day CEFDINIR 85499652208 No Longer Active Vishal Hui MD Active LANSOPRAZOLE 30 MG CPDR 1 cap po qd LANSOPRAZOLE 34980969590 No Longer Active Vishal Hui MD Active BACLOFEN 20 MG TABS 1 tab po tid BACLOFEN 50530518447 No Longer Active Vishal Hui MD Active ADVAIR DISKUS 250-50 MCG/DOSE AEPB 1 puff BID ADVAIR DISKUS 250-50 MCG/DOSE AEPB FLUTICASONE-SALMETEROL Inactive ESCITALOPRAM OXALATE 20 MG TABS 1 tab po qd ESCITALOPRAM OXALATE 20 MG TABS 782161 ESCITALOPRAM OXALATE Inactive ATENOLOL 25 MG TABS 1 tab po qd ATENOLOL 25 MG TABS 469511 ATENOLOL Inactive BENZTROPINE MESYLATE 1 MG TABS 1 tab po qd BENZTROPINE MESYLATE 1 MG TABS 937536 BENZTROPINE MESYLATE Inactive BUSPIRONE HCL 15 MG TABS 1 tab po TID BUSPIRONE HCL 15 MG TABS 555062 BUSPIRONE HCL Inactive LEVOFLOXACIN 500 MG TABS 1 tab po qd LEVOFLOXACIN 500 MG TABS 875961 LEVOFLOXACIN Inactive PREDNISONE 20 MG TABS 1 tab po qd PREDNISONE 20 MG TABS 197420 PREDNISONE Inactive MIRALAX POWD 1 capfull once daily MIRALAX POWD 760984 POLYETHYLENE GLYCOL 3350 Inactive VERAPAMIL HCL ER 180 MG CR-TABS 1 tab po bid VERAPAMIL HCL ER 180 MG CR-TABS VERAPAMIL HCL Inactive LORATADINE 10 MG TABS 1 tab po qd LORATADINE 10 MG TABS 136397 LORATADINE Inactive LYRICA 50 MG CAPS 1 tab po TID LYRICA 50 MG CAPS PREGABALIN Inactive ZALEPLON 10 MG CAPS 1 cap po every other night ZALEPLON 10 MG CAPS 953080 ZALEPLON Inactive SAPHRIS 5 MG SUBL 1 tab po qd SAPHRIS 5 MG SUBL ASENAPINE MALEATE Inactive TRAZODONE HCL 50 MG TABS 1/2 tab po qd prn for anxiety TRAZODONE HCL 50 MG TABS 085457 TRAZODONE HCL Inactive LATUDA 20 MG TABS Take one by mouth daily LATUDA 20 MG TABS LURASIDONE HCL Inactive LISINOPRIL 20 MG TABS 1 tab po qd LISINOPRIL 20 MG TABS 379516 LISINOPRIL Inactive SAPHRIS 10 MG SUBL 1 [...] twice daily BACTRIM DS 800-160 MG TAB 748497 TRIMETHOPRIM-SULFAMETHOXAZOLE Inactive MULTIVITAMINS CAPS Take one by mouth daily MULTIVITAMINS CAPS MULTIPLE VITAMIN Inactive MELATONIN 3 MG CAPS 2 po q hs MELATONIN 3 MG CAPS 292052 MELATONIN Inactive KEFLEX 500 MG ORAL CAPS 1 cap QID by mouth KEFLEX 500 MG ORAL CAPS 286696 CEPHALEXIN Inactive CLINDAMYCIN HCL 150 MG CAPS 1 four times a day CLINDAMYCIN HCL 150 MG CAPS 780590 CLINDAMYCIN HCL Inactive DIFLUCAN 150 MG TAB 1 tablet by mouth daily DIFLUCAN 150 MG TAB 364973 FLUCONAZOLE Inactive PROZAC 20 MG CAP Take one by mouth daily PROZAC 20 MG CAP 812138 FLUOXETINE HCL Inactive IBUPROFEN 600 MG TAB 1 po TID PRN IBUPROFEN 600 MG TAB 317179 IBUPROFEN Inactive VYVANSE 40 MG CAPS 1 daily, VYVANSE 40 MG CAPS LISDEXAMFETAMINE DIMESYLATE Inactive TRAZODONE HCL 100 MG TAB take 1 at bedtime TRAZODONE HCL 100 MG TAB 716105 TRAZODONE HCL Inactive AMITRIPTYLINE HCL 100 MG TAB one at hs AMITRIPTYLINE HCL 100 MG TAB 084403 AMITRIPTYLINE HCL Inactive AMLODIPINE BESYLATE 5 MG TABS 1 tablet by mouth daily AMLODIPINE BESYLATE 5 MG TABS 437153 AMLODIPINE BESYLATE Inactive LATUDA 80 MG TABS Take one by mouth daily LATUDA 80 MG TABS LURASIDONE HCL Inactive SAPHRIS 5 MG SUBL 1 po bid SAPHRIS 5 MG SUBL ASENAPINE MALEATE Inactive PREDNISONE 20 MG TAB 2 tabs daily for 4 days, 1 tab daily for 4 days, 1/2 tab daily for 4 days PREDNISONE 20 MG TAB 505554 PREDNISONE Inactive AMBIEN 5 MG ORAL TABS 1 tab at bedtime AMBIEN 5 MG ORAL TABS 375437 ZOLPIDEM TARTRATE Inactive PROZAC 20 MG ORAL CAPS 1 tab daily PROZAC 20 MG ORAL CAPS 790343 FLUOXETINE HCL Inactive ABILIFY 15 MG ORAL TABS 1 tab daily ABILIFY 15 MG ORAL TABS 108258 ARIPIPRAZOLE Inactive METOPROLOL TARTRATE 50 MG TAB 1 po bid METOPROLOL TARTRATE 50 MG TAB 100116 METOPROLOL TARTRATE Inactive TRAMADOL HCL 50 MG TABS 1-2 po TID PRN Pain TRAMADOL HCL 50 MG TABS 915112 TRAMADOL HCL Inactive PIROXICAM 20 MG CAPS 1 cap po qd PRN Pain PIROXICAM 20 MG CAPS 809370 PIROXICAM Inactive MINIPRESS 2 MG CAPS 4 cap po at night MINIPRESS 2 MG CAPS 481675 PRAZOSIN HCL Inactive MIRALAX PACK 1 po qd PRN Constipation MIRALAX PACK 285456 POLYETHYLENE GLYCOL 3350 Inactive METOPROLOL TARTRATE 25 MG ORAL TABS 1/2 tablet twice daily for heart rate and blood pressure METOPROLOL TARTRATE 25 MG ORAL TABS 462244 METOPROLOL TARTRATE Inactive VALIUM 5 MG TAB Take 1-2 tablets daily VALIUM 5 MG TAB 350909 DIAZEPAM Inactive FLAGYL 500 MG TAB 1 tablet by mouth bid FLAGYL 500 MG TAB 353738 METRONIDAZOLE Inactive DICLOFENAC POTASSIUM TABS Take 1 tablet twice a day (pt. is not sure of the dose.) DICLOFENAC POTASSIUM TABS DICLOFENAC POTASSIUM TABS Inactive ZITHROMAX Z-EARNEST 250 MG TABS 2 today and then 1 daily for 4 days ZITHROMAX Z-EARNEST 250 MG TABS 5480716 AZITHROMYCIN Inactive PREDNISONE 20 MG TABS 2 daily for 5 days then 1 daily for 5 days PREDNISONE 20 MG TABS 681288 PREDNISONE Inactive PROAIR HFA 108 (90 BASE) MCG/ACT AERS 2 puffs four times a day as needed 2015 PROAIR HFA 108 (90 BASE) MCG/ACT AERS ALBUTEROL SULFATE Inactive HYDROCODONE-ACETAMINOPHEN 5-325 MG TABS 1 to 2 four times a day as needed for pain use until can be seen by specialist HYDROCODONE- ACETAMINOPHEN 5-325 MG TABS 193083 HYDROCODONE-ACETAMINOPHEN Inactive CEFDINIR 300 MG CAPS by mouth twice a day CEFDINIR 300 MG CAPS 159044 CEFDINIR Inactive PREDNISONE 20 MG TAB 2 tabs daily for 3 days, 1 tab daily for 3 days, 1/2 tab daily for 2 days PREDNISONE 20 MG TAB 022256 PREDNISONE Inactive BACTRIM DS 800-160 MG TABS 1 po BID x 7 days BACTRIM DS 800-160 MG TABS 19820521 SULFAMETHOXAZOLE-TRIMETHOPRIM Inactive DIFLUCAN 150 MG TABS 1 pill every other day x 2 doses DIFLUCAN 150 MG TABS 143886 FLUCONAZOLE Inactive BACTRIM DS 800-160 MG TABS 1 pill by mouth twice daily BACTRIM DS 800-160 MG TABS 19820521 SULFAMETHOXAZOLE-TRIMETHOPRIM Inactive KEFLEX 500 MG CAP 1 po TID x 10 days KEFLEX 500 MG CAP 758246 CEPHALEXIN Inactive Advance Directives Directive Description Start [...] % 11.6-14.8 platelet count 394 10^3/MM^3 10*3/mm3 254-491 5963/01/11 leukocyte count, blood 13.8 10^3/MM^3 10*3/mm3 4.6-10.2 [...] Panel - Chemistry sodium, serum 139 mmol/L 373-140 8897/12/03 carbon dioxide, venous blood 28.5 mmol/L 21.0-32.0 [...] 5.5 % 4.3-6.0 cholesterol, serum 159 mg/dL 259-384 8104/12/03 triglyceride, serum, fasting 118 mg/dL 30-200 HDL [...] Panel - Chemistry sodium, serum 139 mmol/L 463-320 9772/12/22 carbon dioxide, venous blood 26.8 mmol/L 21.0-32.0 potassium, serum 4.2 mmol/L 3.5-5.2 chloride, serum 103 mmol/L 98-107 blood glucose 115 mg/dL 65-110 urea nitrogen, blood 20 mg/dL 7-18 creatinine, serum 0.90 mg/dL 0.55-1.30 alanine aminotransferase (SGPT), serum 38 U/L aspartate aminotransferase (SGOT), serum 19 U/L 15-37 calcium, serum 8.6 mg/dL 8.5-10.1 bilirubin, serum, total 0.30 mg/dL 0.00-1.00 sodium, serum 139 mmol/L 880-173 6085/01/11 carbon dioxide, venous blood 26.6 mmol/L 21.0-32.0 potassium, serum 4.1 mmol/L 3.5-5.2 chloride, serum 100 mmol/L 98-107 blood glucose 86 mg/dL 65-110 urea nitrogen, blood 16 mg/dL - creatinine, serum 1.00 mg/dL 0.55-1.30 alanine aminotransferase (SGPT), serum 48 U/L aspartate aminotransferase (SGOT), serum 17 U/L 15-37 calcium, serum 9.1 mg/dL 8.5-10.1 bilirubin, serum, total 0.40 mg/dL 0.00-1.00 sodium, serum 142 mmol/L 326-440 0706/06/08 carbon dioxide, venous blood 27.6 mmol/L 21.0-32.0 potassium, serum 4.0 mmol/L 3.5-5.2 chloride, serum 105 mmol/L 98-107 blood glucose 95 mg/dL 65-110 urea nitrogen, blood 8 mg/dL - creatinine, serum 0.75 mg/dL 0.55-1.30 alanine aminotransferase (SGPT), serum 49 U/L aspartate aminotransferase (SGOT), serum 28 U/L 15-37 calcium, serum 9.4 mg/dL 8.5-10.1 bilirubin, serum, total 0.30 mg/dL 0.00-1.00 sodium, serum 140 mmol/L 077-133 9473/08/08 carbon dioxide, venous blood 33.7 mmol/L 21.0-32.0 [...] Rate - Chemistry sodium, serum 139 mmol/L 917-293 9336/12/11 carbon dioxide, venous blood 25.4 mmol/L 21.0-32.0 [...] mg/dL Encounters Code Encounter Date Provider Facility CPT-13319 Level 3 Est. Patient 15:50:44 CDT Vishal Hui MD [facility] CPT-70960 Level 3 Est. Patient 11:36:17 CDT Ahmet Carbajal MD [facility] CPT-28240 Level 3 Est. Patient 13:29:16 CDT Vishal Hui MD [facility] CPT-62279 Level 3 Est. Patient 14:27:52 CDT Neeraj Collins MD [facility] CPT-90726 Level 3 Est. Patient 08:56:03 CDT Luigi Martínez [facility] [place] CPT-91574 Level 4 Est. Patient 12:11:48 CDT Fabiola Johnson [facility] [place] CPT-98584 Level 3 New Patient 16:53:37 CDT Albert Caldera MD [facility] CPT-51613 Level 3 Est. Patient 11:25:49 CDT Renzo Thornton DO [facility] CPT-71758 Level 3 Est. Patient 15:22:01 CDT Ahmet Carbajal MD [facility] CPT-81297 Level 4 Est. Patient 09:00:51 [employer]ESS P[employer]ER Vishal Hui MD [facility] CPT-86846 Level 3 Est. Patient 11:37:33 HARNESS P[employer]ER Vishal Hui MD [facility] CPT-73328 Level 3 Est. Patient 08:41:09 HARNESS P[employer]ER Vishal Hui MD [facility] CPT-05785 Level 4 Est. Patient 10:19:35 HARNESS P[employer]ER Vishal Hui MD [facility] CPT-00252 Level 3 Est. Patient 13:35:45 CDT Vishal Hui MD [facility] CPT-11770 Level 4 Est. Patient 10:08:37 CDT Vishal Hui MD [facility] CPT-14668 Level 3 Est. Patient 11:22:10 CDT Vishal Hui MD [facility] CPT-24410 Level 3 Est. Patient 11:03:32 CDT Sahara Rodriguez MD, PhD [facility] CPT-25015 Level 3 Est. Patient 09:41:35 CDT Vishal Hui MD [facility] [place]-77579 Level 3 Est. Patient 12:00:41 CDT Neeraj Collins MD [facility] CPT-54157 Level 3 Est. Patient 09:16:24 CDT Vishal Hui MD [facility] CPT-57403 Level 4 Est. Patient 13:59:09 CDT Neeraj Collins MD [facility] CPT-40165 Level 3 Est. Patient 15:19:43 CDT Renzo Thornton [facility] CPT-66020 Level 3 Est. Patient 18:10:26 CDT Sahara Rodriguez MD PhD [facility] CPT-50318 Level 3 Est. Patient 14:49:50 CDT Vishal Hui MD [facility] CPT-52287 Level 4 Est. Patient 18:41:46 CDT Neeraj Collins MD [facility] CPT-81847 Level 4 Est. Patient 09:18:38 [employer]ESS [employer]ER Vishal Hui MD [facility] CPT-53510 Level 3 Est. Patient 14:43:55 HARNESS P[employer]ER Vishal Hui MD [facility] CPT-47677 Level 3 Est. Patient 15:26:33 [employer]ARNESS P[employer]ER Sahara Rodriguez MD PhD [facility] CPT-09188 Level 3 Est. Patient 10:32:14 [employer]ARN[employer]ER Vishal Hui MD [facility] CPT-64139 Level 3 Est. Patient 15:12:52 [employer]ARNESS P[employer]ER Vishal Hui MD [facility] CPT-30178 Level 4 Est. Patient 09:19:27 CDT Vishal Hui MD [facility] CPT-57853 Level 3 Est. Patient 15:53:00 CDT Renzo Thornton [facility] CPT-83646 Level 3 Est. Patient 15:50:30 CDT Renzo Thornton [facility] CPT-40699 Level 3 Est. Patient 16:55:24 CDT Vishal Hui MD [facility] Procedures Code Procedure Name Date Entry Date Standard Description CPT-32226 Abx/Therapy Injection 08:47:09 CDT CPT-49709 Abx/Therapy Injection 13:29:56 CDT CPT-94136 Abx/Therapy Injection 08:36:16 CDT CPT-39939 Wet Mount - LAB USE ONLY 17:44:58 CDT CPT-11192 UA w micro - LAB USE ONLY 17:44:58 CDT CPT-24492 CMP - LAB USE ONLY 17:44:58 CDT CPT-84233 Venipuncture Draw Fee 17:44:58 CDT CPT-72990 Cervical Min 4V - XRAY USE ONLY 09:01:40 CDT CPT-36082 Chest 2V Frontal and Lat - XRAY USE ONLY 11:06:31 CDT CPT-80877 EKG Trac and Interp - XRAY USE ONLY 11:31:43 CDT 08/26 CPT-J3420 Vitamin B12 1000mcg (Cyanocobalamin) 08:10:26 HARNESS P[employer]ER 04/12 CPT-06618 Abx/Therapy Injection 08:10:26 HARNESS P[employer]ER CPT-G0438 Initial Annual Wellness Exam 19:01:01 HARNESS PULLER CPT-J3420 Vitamin B12 1000mcg (Cyanocobalamin) 16:57:46 CDT 08/14 CPT-94432 Recombivax HB Injection Suspension 5 MCG/0.5ML 08:37:50 HARNESS P[employer]ER CPT-01482 Immunization Single Admin 08:37:50 HARNESS P[employer]ER CPT-J3420 Vitamin B12 1000mcg (Cyanocobalamin) 08:32:16 HARNESS PULLER 03/11 CPT-14363 Abx/Therapy Injection 08:32:16 HARNESS P[employer]ER CPT-69733 Chest 2V Frontal and Lat 11:46:38 HARNESS P[employer]ER CPT-49941 Venipuncture Draw Fee 09:12:45 HARNESS P[employer]ER CPT-J3420 Vitamin B12 1000mcg (Cyanocobalamin) 08:50:15 HARNESS PULLER 02/08 CPT-00713 Abx/Therapy Injection 08:50:15 HARNESS P[employer]ER CPT-Cryo Cryotherapy 10:19:35 HARNESS P[employer]ER CPT-000 Give Appropriate Flu Vaccine 09:22:16 CDT CPT-J3420 Vitamin B12 1000mcg (Cyanocobalamin) 19:08:57 CDT 01/11 CPT-95172 Abx/Therapy Injection 19:08:57 CDT CPT-J3420 Vitamin B12 1000mcg (Cyanocobalamin) 08:19:08 CDT 12/11 CPT-30833 Abx/Therapy Injection 08:19:08 CDT CPT-J3420 Vitamin B12 1000mcg (Cyanocobalamin) 14:48:00 CDT 11/09 CPT-98417 Abx/Therapy Injection 14:47:59 CDT CPT-J3420 Vitamin B12 1000mcg (Cyanocobalamin) 08:34:04 CDT 10/09 CPT-01567 Abx/Therapy Injection 08:34:04 CDT CPT-J3420 Vitamin B12 1000mcg (Cyanocobalamin) 09:18:52 CDT 09/11 CPT-86463 Abx/Therapy Injection 09:18:52 CDT CPT-J3420 Vitamin B12 1000mcg (Cyanocobalamin) 08:35:44 CDT 09/04 CPT-12950 Abx/Therapy Injection 08:35:44 CDT CPT-90784 Immunization Single Admin 11:07:16 CDT CPT-67383 Hepatitis B adult IM 11:07:16 CDT CPT-J3420 Vitamin B12 1000mcg (Cyanocobalamin) 11:00:49 CDT 08/28 CPT-J1040 Depo Medrol 80 mg (Methyl Prednisolone Acetate) 11:00: 49 CDT CPT-68897 Abx/Therapy Injection 11:00:49 CDT CPT-J1040 Depo Medrol 80 mg (Methyl Prednisolone Acetate) 09:16: 23 CDT CPT-J3420 Vitamin B12 1000mcg (Cyanocobalamin) 08:27:05 CDT 08/20 CPT-99096 Abx/Therapy Injection 08:27:05 CDT CPT-18629 Recombivax HB Injection Suspension 5 MCG/0.5ML 10:00:41 CDT CPT-74406 Administration single or combination vaccine inc oral 10 :00:41 CDT CPT-94461 Sono transvag pelvis non OB uterus ovaries cervix 16:36: 57 CDT CPT-54124 LS spine comp w obliq 09:50:55 [employer] CPT-80273 Abd compl w upright 09:50:55 [employer] CPT-J1100 Decadron 4mg (Dexamethasone) 15:51:24 [employer] CPT-J1030 Depo Medrol 40 mg (Methyl Prednisolone Acetate) 15:51: 24 [employer] CPT-84212 Abx/Therapy Injection 15:51:24 [employer] CPT-J1100 Decadron 4mg (Dexamethasone) 15:26:33 [employer] CPT-J1030 Depo Medrol 40 mg (Methyl Prednisolone Acetate) 15:26: 33 [employer] CPT-50319 Sono retroperitoneal complete kidneys and bladder 17:15: 30 CDT CPT-62857 Abd compl w upright 16:09:25 CDT CPT-J1100 Decadron 8mg (Dexamethasone) 17:07:57 CDT CPT-63309 Abx/Therapy Injection 17:07:57 CDT CPT-J1100 Decadron 8mg (Dexamethasone) 16:55:24 CDT CPT-83798 Chest 2V Frontal and Lat 16:32:44 CDT
--- OUTSIDE RECORDS SUMMARY | 2016-11-04 21:47 | XMS REPORT | Clinical Summary ---
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 Juliet Kimbrough [employer] Dependence on other enabling machines and devices [...] breath Nocturnal hypoxia 799.02 Active Fabiola Johnson [employer] Hypoxemia Neck pain 723.1 Resolved Vishal Hui [...] not specified as infective DYSURIA 788.1 Active Lugii Martínez APRN Dysuria Contraceptive management V25.09 Active [...] Albert Caldera MD Localized adiposity ICD-278.1 Inactive iVshal Hui MD Shortness of breath ICD-786.05 Inactive [...] day to help quit smoking VARENICLINE TARTRATE 99135947799 No Longer Active Dipika Burgos MD Active CHANTIX STARTING MONTH EARNEST 0.5 MG X 11 & 1 MG X 42 TABS take as directed 2015 VARENICLINE TARTRATE 56188198301 No Longer Active Dipika Burgos MD Active MONISTAT 7 COMBO PACK WOODROW 100 & 2 MG-% (9GM) VAG KIT 1 applicatorful per vagina q pm x 7 MICONAZOLE NITRATE 99428202142 Active Jillina Frazell [employer] Active FLAGYL 500 MG TAB 1 tablet by mouth bid METRONIDAZOLE 50515379301 Active Jillina Frazell [employer] Active TESSALON PERLES 100 MG CAP 1 to 2 tablets by mouth 3 times daily as needed for cough BENZONATATE 14278913893 No Longer Active Jillina Frazell [employer] Active ABILIFY MAINTENA 400 MG IM SUSR 400mg injection every 26 days ARIPIPRAZOLE 58391659924 Active Silvia Casey [employer] INTERN Active IMITREX 50 MG ORAL TABS 0.5 po x 1 PRN Headache. May repeat dose x 1 in 2 hours if needed SUMATRIPTAN SUCCINATE 65629681919 Active Vishal Hui MD Active OXYCODONE HCL ER 10 MG ORAL T12A 1/2 tab by mouth every 4 hours prn OXYCODONE HCL 34065819383 Active Neeraj Collins MD Active METHYLPREDNISOLONE 4 MG ORAL TABS po daily METHYLPREDNISOLONE 93394646698 Active Vishal Hui MD Active LEVOFLOXACIN 500 MG ORAL TABS po daily LEVOFLOXACIN 27618041030 Active Vishal Hui MD Active HYDROCODONE-ACETAMINOPHEN 5-325 MG TABS 1 to 2 four times a day as needed for pain use until can be seen by specialist HYDROCODONE- ACETAMINOPHEN 69454743901 No Longer Active Vishal Hui MD Active PROAIR HFA 108 (90 BASE) MCG/ACT AERS 2 puffs four times a day as needed 2015 ALBUTEROL SULFATE 79918027982 No Longer Active Vishal Hui MD Active PREDNISONE 20 MG TABS 2 daily for 5 days then 1 daily for 5 days PREDNISONE 61460686579 No Longer Active Vishal Hui MD Active ZITHROMAX Z-EARNEST 250 MG TABS 2 today and then 1 daily for 4 days AZITHROMYCIN 95618931867 No Longer Active Vishal Hui MD Active DICLOFENAC SODIUM 50 MG TBEC 1 tablet by mouth four times daily PRN Pain 2015 DICLOFENAC SODIUM 97057845521 Active Vishal Hui MD Active DICLOFENAC POTASSIUM TABS Take 1 tablet twice a day (pt. is not sure of the dose.) DICLOFENAC POTASSIUM TABS 44326014483 No Longer Active Vishal Hui MD Active VERAPAMIL HCL ER 120 MG ORAL CR-TABS Take 1 tablet by mouth twice a day. VERAPAMIL HCL 66294287595 Active Vishal Hui MD Active FLAGYL 500 MG TAB 1 tablet by mouth bid METRONIDAZOLE 93267701813 No Longer Active Vishal Hui MD Active FLUTICASONE PROPIONATE 50 MCG/ACT SUSP 2 sprays each nostril daily before bed. FLUTICASONE PROPIONATE 44126612721 Active Fabiola Johnson APRN Active ADZENYS XR-ODT 6.3 MG ORAL TBED 1 tab po daily for ADHD AMPHETAMINE 89593379382 Active Fabiola Johnson APRN Active BENADRYL 25 MG CAP 4 po at bedtime for insomnia DIPHENHYDRAMINE HCL 23157623788 Active Fabiola Johnson APRN Active KLONOPIN 1 MG ORAL TABS 1 tab po TID CLONAZEPAM 81852181245 Active Fabiola Johnson APRN Active VALIUM 5 MG TAB Take 1-2 tablets daily DIAZEPAM 43752557184 No Longer Active Fabiola Johnson APRN Active METOPROLOL TARTRATE 25 MG ORAL TABS 1/2 tablet twice daily for heart rate and blood pressure METOPROLOL TARTRATE 55692242270 No Longer Active Fabiola Johnson APRN Active MIRALAX ORAL POWD 17GMS DAILY IN WATER POLYETHYLENE GLYCOL 3350 48725207570 Active Vishal Hui MD Active VIIBRYD 10 MG ORAL TABS Take 1 tablet once a day VILAZODONE HCL 98506884317 Active Ahmet Carbajal MD Active MIRALAX PACK 1 po qd PRN Constipation POLYETHYLENE GLYCOL 3350 58259681798 No Longer Active Ahmet Carbajal MD Active MINIPRESS 2 MG CAPS 4 cap po at night PRAZOSIN HCL 44493612819 No Longer Active Ahmet Carbajal MD Active PIROXICAM 20 MG CAPS 1 cap po qd PRN Pain PIROXICAM 85756391681 No Longer Active Ahmet Carbajal MD Active TRAMADOL HCL 50 MG TABS 1-2 po TID PRN Pain TRAMADOL HCL 78883012686 No Longer Active Ahmet Carbajal MD Active METOPROLOL TARTRATE 50 MG TAB 1 po bid METOPROLOL TARTRATE 29841673938 No Longer Active Ahmet Carbajal MD Active ABILIFY 15 MG ORAL TABS 1 tab daily ARIPIPRAZOLE 00592731537 No Longer Active Ahmet Carbajal MD Active PROZAC 20 MG ORAL CAPS 1 tab daily FLUOXETINE HCL 38265489375 No Longer Active Ahmet Carbajal MD Active AMBIEN 5 MG ORAL TABS 1 tab at bedtime ZOLPIDEM TARTRATE 50962098536 No Longer Active Ahmet Carbajal MD Active PREDNISONE 20 MG TAB 2 tabs daily for 4 days, 1 tab daily for 4 days, 1/2 tab daily for 4 days PREDNISONE 72453399824 No Longer Active Ahmet Carbajal MD Active KEFLEX 500 MG CAP 1 po TID x 10 days CEPHALEXIN 36558330032 No Longer Active Vishal Hui MD Active TOPAMAX 50 MG ORAL TABS 1 tab twice daily TOPIRAMATE 22152894533 Active Vishal Hui MD Active SAPHRIS 5 MG SUBL 1 po bid ASENAPINE MALEATE 86285722910 No Longer Active Luigi Martínez APRN Active LATUDA 80 MG TABS Take one by mouth daily LURASIDONE HCL 46836943610 No Longer Active Luigi Martínez APRN Active AMLODIPINE BESYLATE 5 MG TABS 1 tablet by mouth daily AMLODIPINE BESYLATE 35281332591 No Longer Active Luigi Martínez APRN Active AMITRIPTYLINE HCL 100 MG TAB one at hs AMITRIPTYLINE HCL 11206747519 No Longer Active Vishal Hui MD Active TRAZODONE HCL 100 MG TAB take 1 at bedtime TRAZODONE HCL 37447561729 No Longer Active Vishal Hui MD Active VYVANSE 40 MG CAPS 1 daily, LISDEXAMFETAMINE DIMESYLATE 05747941004 No Longer Active Vishal Hui MD Active IBUPROFEN 600 MG TAB 1 po TID PRN IBUPROFEN 23797064716 No Longer Active Vishal Hui MD Active PROZAC 20 MG CAP Take one by mouth daily FLUOXETINE HCL 34185497531 No Longer Active Vishal Hui MD Active ZOFRAN 4 MG TABS 1 po q6hr PRN Nausea ONDANSETRON HCL Active Vishal Hui MD Active BACTRIM DS 800-160 MG TABS 1 pill by mouth twice daily SULFAMETHOXAZOLE-TRIMETHOPRIM 02386154574 No Longer Active Sahara Rodriguez MD PhD Active DIFLUCAN 150 MG TAB 1 tablet by mouth daily FLUCONAZOLE 13497374749 No Longer Active Vishal Hui MD Active TIZANIDINE HCL 4 MG TABS 1 po q6hr PRN Muscle Spasm/Back Pain TIZANIDINE HCL 33436595218 Active Vishal Hui MD Active CLINDAMYCIN HCL 150 MG CAPS 1 four times a day CLINDAMYCIN HCL 63467292906 No Longer Active Neeraj Collins MD Active KEFLEX 500 MG ORAL CAPS 1 cap QID by mouth CEPHALEXIN 15008155526 No Longer Active Neeraj Collins MD Active DIFLUCAN 150 MG TABS 1 pill every other day x 2 doses FLUCONAZOLE 69707501185 No Longer Active Sahara Rodriguez MD PhD Active MELATONIN 3 MG CAPS 2 po q hs MELATONIN 47827963473 No Longer Active Sahara Rodriguez MD PhD Active MULTIVITAMINS CAPS Take one by mouth daily MULTIPLE VITAMIN 74064902297 No Longer Active Sahara Rodriguez MD PhD Active BACTRIM DS 800-160 MG TAB 1 tab by mouth twice daily TRIMETHOPRIM-SULFAMETHOXAZOLE 04661215119 No Longer Active Sahara Rodriguez MD PhD Active [facility] PROBIOTIC ORAL CHEW 2 daily po PROBIOTIC PRODUCT 77702363875 No Longer Active Sahara Rodriguez MD PhD Active BACTRIM DS 800-160 MG TABS 1 po BID x 7 days SULFAMETHOXAZOLE-TRIMETHOPRIM 25156391109 No Longer Active Vishal Hui MD Active CHANTIX STARTING MONTH EARNEST 0.5 MG X 11 & 1 MG X 42 TABS 0.5mg daily for 3 days , then 0.5mg BID for 4 days, then 1mg BID VARENICLINE TARTRATE 38395615535 No Longer Active TAMARA Gray Active VERAPAMIL HCL CR 120 MG TAB CR 1 po bid VERAPAMIL HCL 20350206284 No Longer Active Vishal Hui MD Active METOPROLOL SUCCINATE 50 MG TB24 1 tablet by mouth daily METOPROLOL SUCCINATE 94498313516 No Longer Active Vishal Hui MD Active SAPHRIS 10 MG SUBL 1 tab po bid ASENAPINE MALEATE 64918408721 No Longer Active Vishal Hui MD Active LISINOPRIL 20 MG TABS 1 tab po qd LISINOPRIL 63896768669 No Longer Active Vishal Hui MD Active LATUDA 20 MG TABS Take one by mouth daily LURASIDONE HCL 31654591730 No Longer Active Vishal Hui MD Active TRAZODONE HCL 50 MG TABS 1/2 tab po qd prn for anxiety TRAZODONE HCL 51263679384 No Longer Active Vishal Hui MD Active OMEPRAZOLE 20 MG TBEC 1 po q a.m. 30min prior to first food intake OMEPRAZOLE 71801810647 Active Vishal Hui MD Active RANITIDINE HCL 150 MG CAPS 1 twice a day RANITIDINE HCL 26703038671 Active Jillina Frazell [employer] Active LINZESS 290 MCG CAPS Take one by mouth daily LINACLOTIDE 03169696321 No Longer Active Vishal Hui MD Active SAPHRIS 5 MG SUBL 1 tab po qd ASENAPINE MALEATE 95061326141 No Longer Active Vishal Hui MD Active ZALEPLON 10 MG CAPS 1 cap po every other night ZALEPLON 70846818330 No Longer Active Vishal Hui MD Active LYRICA 50 MG CAPS 1 tab po TID PREGABALIN 39490731965 No Longer Active Vishal Hui MD Active LORATADINE 10 MG TABS 1 tab po qd LORATADINE 58634665209 No Longer Active Vishal Hui MD Active VERAPAMIL HCL ER 180 MG CR-TABS 1 tab po bid VERAPAMIL HCL 77389579317 No Longer Active Vishal Hui MD Active MIRALAX POWD 1 capfull once daily POLYETHYLENE GLYCOL 3350 43217109882 No Longer Active Vishal Hui MD Active PREDNISONE 20 MG TABS 1 tab po qd PREDNISONE 89191651141 No Longer Active Renzo Thornton DO Active LEVOFLOXACIN 500 MG TABS 1 tab po qd LEVOFLOXACIN 39666467604 No Longer Active Renzo Thornton DO Active BUSPIRONE HCL 15 MG TABS 1 tab po TID BUSPIRONE HCL 72396290699 No Longer Active Renzo Thornton DO Active BENZTROPINE MESYLATE 1 MG TABS 1 tab po qd BENZTROPINE MESYLATE 51793897210 No Longer Active Renzo Thornton DO Active ATENOLOL 25 MG TABS 1 tab po qd ATENOLOL 67705697349 No Longer Active Renzo Thornton DO Active ESCITALOPRAM OXALATE 20 MG TABS 1 tab po qd ESCITALOPRAM OXALATE 42138911180 No Longer Active Renzo Thornton DO Active ADVAIR DISKUS 250-50 MCG/DOSE AEPB 1 puff BID FLUTICASONE-SALMETEROL 14132987157 No Longer Active Renzo Thornton DO Active PREDNISONE 20 MG TAB 2 tabs daily for 3 days, 1 tab daily for 3 days, 1/2 tab daily for 2 days PREDNISONE 37039315093 No Longer Active Vishal Hui MD Active CEFDINIR 300 MG CAPS by mouth twice a day CEFDINIR 09159525168 No Longer Active Vishal Hui MD Active LANSOPRAZOLE 30 MG CPDR 1 cap po qd LANSOPRAZOLE 72887267031 No Longer Active Vishal Hui MD Active BACLOFEN 20 MG TABS 1 tab po tid BACLOFEN 89528440421 No Longer Active Vishal Hui MD Active ADVAIR DISKUS 250-50 MCG/DOSE AEPB 1 puff BID ADVAIR DISKUS 250-50 MCG/DOSE AEPB FLUTICASONE-SALMETEROL Inactive ESCITALOPRAM OXALATE 20 MG TABS 1 tab po qd ESCITALOPRAM OXALATE 20 MG TABS 199110 ESCITALOPRAM OXALATE Inactive ATENOLOL 25 MG TABS 1 tab po qd ATENOLOL 25 MG TABS 912714 ATENOLOL Inactive BENZTROPINE MESYLATE 1 MG TABS 1 tab po qd BENZTROPINE MESYLATE 1 MG TABS 372144 BENZTROPINE MESYLATE Inactive BUSPIRONE HCL 15 MG TABS 1 tab po TID BUSPIRONE HCL 15 MG TABS 201422 BUSPIRONE HCL Inactive LEVOFLOXACIN 500 MG TABS 1 tab po qd LEVOFLOXACIN 500 MG TABS 025574 LEVOFLOXACIN Inactive PREDNISONE 20 MG TABS 1 tab po qd PREDNISONE 20 MG TABS 738189 PREDNISONE Inactive MIRALAX POWD 1 capfull once daily MIRALAX POWD 414176 POLYETHYLENE GLYCOL 3350 Inactive VERAPAMIL HCL ER 180 MG CR-TABS 1 tab po bid VERAPAMIL HCL ER 180 MG CR-TABS VERAPAMIL HCL Inactive LORATADINE 10 MG TABS 1 tab po qd LORATADINE 10 MG TABS 836847 LORATADINE Inactive LYRICA 50 MG CAPS 1 tab po TID LYRICA 50 MG CAPS PREGABALIN Inactive ZALEPLON 10 MG CAPS 1 cap po every other night ZALEPLON 10 MG CAPS 058271 ZALEPLON Inactive SAPHRIS 5 MG SUBL 1 tab po qd SAPHRIS 5 MG SUBL ASENAPINE MALEATE Inactive TRAZODONE HCL 50 MG TABS 1/2 tab po qd prn for anxiety TRAZODONE HCL 50 MG TABS 439365 TRAZODONE HCL Inactive LATUDA 20 MG TABS Take one by mouth daily LATUDA 20 MG TABS LURASIDONE HCL Inactive LISINOPRIL 20 MG TABS 1 tab po qd LISINOPRIL 20 MG TABS 595608 LISINOPRIL Inactive SAPHRIS 10 MG SUBL 1 [...] twice daily BACTRIM DS 800-160 MG TAB 876145 TRIMETHOPRIM-SULFAMETHOXAZOLE Inactive MULTIVITAMINS CAPS Take one by mouth daily MULTIVITAMINS CAPS MULTIPLE VITAMIN Inactive MELATONIN 3 MG CAPS 2 po q hs MELATONIN 3 MG CAPS 140123 MELATONIN Inactive KEFLEX 500 MG ORAL CAPS 1 cap QID by mouth KEFLEX 500 MG ORAL CAPS 566084 CEPHALEXIN Inactive CLINDAMYCIN HCL 150 MG CAPS 1 four times a day CLINDAMYCIN HCL 150 MG CAPS 820382 CLINDAMYCIN HCL Inactive DIFLUCAN 150 MG TAB 1 tablet by mouth daily DIFLUCAN 150 MG TAB 817248 FLUCONAZOLE Inactive PROZAC 20 MG CAP Take one by mouth daily PROZAC 20 MG CAP 715465 FLUOXETINE HCL Inactive IBUPROFEN 600 MG TAB 1 po TID PRN IBUPROFEN 600 MG TAB 786930 IBUPROFEN Inactive VYVANSE 40 MG CAPS 1 daily, VYVANSE 40 MG CAPS LISDEXAMFETAMINE DIMESYLATE Inactive TRAZODONE HCL 100 MG TAB take 1 at bedtime TRAZODONE HCL 100 MG TAB 353928 TRAZODONE HCL Inactive AMITRIPTYLINE HCL 100 MG TAB one at hs AMITRIPTYLINE HCL 100 MG TAB 557057 AMITRIPTYLINE HCL Inactive AMLODIPINE BESYLATE 5 MG TABS 1 tablet by mouth daily AMLODIPINE BESYLATE 5 MG TABS 682307 AMLODIPINE BESYLATE Inactive LATUDA 80 MG TABS Take one by mouth daily LATUDA 80 MG TABS LURASIDONE HCL Inactive SAPHRIS 5 MG SUBL 1 po bid SAPHRIS 5 MG SUBL ASENAPINE MALEATE Inactive PREDNISONE 20 MG TAB 2 tabs daily for 4 days, 1 tab daily for 4 days, 1/2 tab daily for 4 days PREDNISONE 20 MG TAB 762062 PREDNISONE Inactive AMBIEN 5 MG ORAL TABS 1 tab at bedtime AMBIEN 5 MG ORAL TABS 679902 ZOLPIDEM TARTRATE Inactive PROZAC 20 MG ORAL CAPS 1 tab daily PROZAC 20 MG ORAL CAPS 531204 FLUOXETINE HCL Inactive ABILIFY 15 MG ORAL TABS 1 tab daily ABILIFY 15 MG ORAL TABS 216350 ARIPIPRAZOLE Inactive METOPROLOL TARTRATE 50 MG TAB 1 po bid METOPROLOL TARTRATE 50 MG TAB 255137 METOPROLOL TARTRATE Inactive TRAMADOL HCL 50 MG TABS 1-2 po TID PRN Pain TRAMADOL HCL 50 MG TABS 719507 TRAMADOL HCL Inactive PIROXICAM 20 MG CAPS 1 cap po qd PRN Pain PIROXICAM 20 MG CAPS 308107 PIROXICAM Inactive MINIPRESS 2 MG CAPS 4 cap po at night MINIPRESS 2 MG CAPS 421779 PRAZOSIN HCL Inactive MIRALAX PACK 1 po qd PRN Constipation MIRALAX PACK 444981 POLYETHYLENE GLYCOL 3350 Inactive METOPROLOL TARTRATE 25 MG ORAL TABS 1/2 tablet twice daily for heart rate and blood pressure METOPROLOL TARTRATE 25 MG ORAL TABS 337142 METOPROLOL TARTRATE Inactive VALIUM 5 MG TAB Take 1-2 tablets daily VALIUM 5 MG TAB 240307 DIAZEPAM Inactive FLAGYL 500 MG TAB 1 tablet by mouth bid FLAGYL 500 MG TAB 906388 METRONIDAZOLE Inactive DICLOFENAC POTASSIUM TABS Take 1 tablet twice a day (pt. is not sure of the dose.) DICLOFENAC POTASSIUM TABS DICLOFENAC POTASSIUM TABS Inactive ZITHROMAX Z-EARNEST 250 MG TABS 2 today and then 1 daily for 4 days ZITHROMAX Z-EARNEST 250 MG TABS 5287658 AZITHROMYCIN Inactive PREDNISONE 20 MG TABS 2 daily for 5 days then 1 daily for 5 days PREDNISONE 20 MG TABS 233979 PREDNISONE Inactive PROAIR HFA 108 (90 BASE) MCG/ACT AERS 2 puffs four times a day as needed 2015 PROAIR HFA 108 (90 BASE) MCG/ACT AERS ALBUTEROL SULFATE Inactive HYDROCODONE-ACETAMINOPHEN 5-325 MG TABS 1 to 2 four times a day as needed for pain use until can be seen by specialist HYDROCODONE- ACETAMINOPHEN 5-325 MG TABS 728220 HYDROCODONE-ACETAMINOPHEN Inactive TESSALON PERLES 100 MG CAP 1 to 2 tablets by mouth 3 times daily as needed for cough TESSALON PERLES 100 MG CAP 525987 BENZONATATE Inactive CHANTIX STARTING MONTH EARNEST 0.5 [...] twice a day CEFDINIR 300 MG CAPS 868384 CEFDINIR Inactive PREDNISONE 20 MG TAB 2 tabs daily for 3 days, 1 tab daily for 3 days, 1/2 tab daily for 2 days PREDNISONE 20 MG TAB 010389 PREDNISONE Inactive BACTRIM DS 800-160 MG TABS 1 po BID x 7 days BACTRIM DS 800-160 MG TABS 19820521 SULFAMETHOXAZOLE-TRIMETHOPRIM Inactive DIFLUCAN 150 MG TABS 1 pill every other day x 2 doses DIFLUCAN 150 MG TABS 367846 FLUCONAZOLE Inactive BACTRIM DS 800-160 MG TABS 1 pill by mouth twice daily BACTRIM DS 800-160 MG TABS 19820521 SULFAMETHOXAZOLE-TRIMETHOPRIM Inactive KEFLEX 500 MG CAP 1 po TID x 10 days KEFLEX 500 MG CAP 581651 CEPHALEXIN Inactive Advance Directives Directive Description Start [...] % 11.6-14.8 platelet count 394 10^3/MM^3 10*3/mm3 476-683 0966/01/11 leukocyte count, blood 13.8 10^3/MM^3 10*3/mm3 4.6-10.2 [...] Panel - Chemistry sodium, serum 139 mmol/L 032-180 9094/12/03 carbon dioxide, venous blood 28.5 mmol/L 21.0-32.0 [...] 5.5 % 4.3-6.0 cholesterol, serum 159 mg/dL 579-544 6258/12/03 triglyceride, serum, fasting 118 mg/dL 30-200 HDL [...] 362 10^3/MM^3 10*3/mm3 142-424 Lab Report: Chlamydia/GC APTIMA/[id number] - Lab chlamydia DNA probe NOT DETECTED NOT DETECTED Lab Report: Chlamydia/GC APTIMA/[id number] - Microbiology Neisseria gonorrhoeae DNA probe NOT DETECTED NOT DETECTED Lab Report: Comp. Metabolic Panel - Chemistry sodium, serum 140 mmol/L 230-960 7936/08/08 carbon dioxide, venous blood 33.7 mmol/L 21.0-32.0 potassium, serum 5.0 mmol/L 3.5-5.2 chloride, serum 103 mmol/L 98-107 blood glucose 80 mg/dL 65-110 urea nitrogen, blood 13 mg/dL 7-18 creatinine, serum 0.88 mg/dL 0.55-1.30 alanine aminotransferase (SGPT), serum 54 U/L 12-78 aspartate aminotransferase (SGOT), serum 29 U/L 15-37 calcium, serum 9.7 mg/dL 8.5-10.1 bilirubin, serum, total 0.30 mg/dL 0.00-1.00 sodium, serum 139 mmol/L 533-473 6970/12/22 carbon dioxide, venous blood 26.8 mmol/L 21.0-32.0 potassium, serum 4.2 mmol/L 3.5-5.2 chloride, serum 103 mmol/L 98-107 blood glucose 115 mg/dL 65-110 urea nitrogen, blood 20 mg/dL 7-18 creatinine, serum 0.90 mg/dL 0.55-1.30 alanine aminotransferase (SGPT), serum 38 U/L aspartate aminotransferase (SGOT), serum 19 U/L 15-37 calcium, serum 8.6 mg/dL 8.5-10.1 bilirubin, serum, total 0.30 mg/dL 0.00-1.00 sodium, serum 139 mmol/L 165-364 9069/01/11 carbon dioxide, venous blood 26.6 mmol/L 21.0-32.0 potassium, serum 4.1 mmol/L 3.5-5.2 chloride, serum 100 mmol/L 98-107 blood glucose 86 mg/dL 65-110 urea nitrogen, blood 16 mg/dL 7-18 creatinine, serum 1.00 mg/dL 0.55-1.30 alanine aminotransferase (SGPT), serum 48 U/L aspartate aminotransferase (SGOT), serum 17 U/L 15-37 calcium, serum 9.1 mg/dL 8.5-10.1 bilirubin, serum, total 0.40 mg/dL 0.00-1.00 sodium, serum 142 mmol/L 605-284 0983/06/08 carbon dioxide, venous blood 27.6 mmol/L 21.0-32.0 [...] Rate - Chemistry sodium, serum 139 mmol/L 514-756 8664/12/11 carbon dioxide, venous blood 25.4 mmol/L 21.0-32.0 [...] mg/dL Encounters Code Encounter Date Provider Facility CPT-92057 Level 3 Est. Patient 13:59:59 CDT Luigi Martínez APRN [facility] CPT-66392 Level 3 Est. Patient 18:18:53 CDT Neeraj Collins MD [facility] CPT-77812 Level 3 Est. Patient 15:50:44 CDT Vishal Hui MD [facility] CPT-44731 Level 3 Est. Patient 11:36:17 CDT Ahmet Carbajal MD [facility] CPT-12115 Level 3 Est. Patient 13:29:16 CDT Vishal Hui MD [facility] CPT-78158 Level 3 Est. Patient 14:27:52 CDT Neeraj Collins MD [facility] CPT-18228 Level 3 Est. Patient 08:56:03 CDT Luigi Martínez [facility] CPT-81968 Level 4 Est. Patient 12:11:48 CDT Fabiola Johnson [facility] CPT-48880 Level 3 New Patient 16:53:37 CDT Albert Caldera MD [facility] CPT-78342 Level 3 Est. Patient 11:25:49 CDT Renzo Thornton DO [facility] CPT-52038 Level 3 Est. Patient 15:22:01 CDT Ahmet Carbajal MD [facility] CPT-18844 Level 4 Est. Patient 09:00:51 [employer] Vishal Hui MD [facility] CPT-35446 Level 3 Est. Patient 11:37:33 [employer] Vishal Hui MD [facility] CPT-29479 Level 3 Est. Patient 08:41:09 [employer] Vishal Hui MD [facility] CPT-32488 Level 4 Est. Patient 10:19:35 [employer] Vishal Hui MD [facility] CPT-91646 Level 3 Est. Patient 13:35:45 CDT Vishal Hui MD [facility] CPT-70293 Level 4 Est. Patient 10:08:37 CDT Vishal Hui MD [facility] CPT-16939 Level 3 Est. Patient 11:22:10 CDT Vishal Hui MD [facility] CPT-97478 Level 3 Est. Patient 11:03:32 CDT Sahara Rodriguez MD PhD [facility] CPT-92436 Level 3 Est. Patient 09:41:35 CDT Vishal Hui MD [facility] CPT-54417 Level 3 Est. Patient 12:00:41 CDT Neeraj Collins MD [facility] CPT-56140 Level 3 Est. Patient 09:16:24 CDT Vishal Hui MD [facility] CPT-36626 Level 4 Est. Patient 13:59:09 CDT Neeraj Collins MD [facility] CPT-52518 Level 3 Est. Patient 15:19:43 CDT Renzo Thornton DO [facility] CPT-74030 Level 3 Est. Patient 18:10:26 CDT Sahara Rodriguez MD [facility]-10350 Level 3 Est. Patient 14:49:50 CDT Vishal Hui MD [facility] CPT-37552 Level 4 Est. Patient 18:41:46 CDT Neeraj Collins MD [facility] CPT-43162 Level 4 Est. Patient 09:18:38 [employer] Vishal Hui MD [facility] CPT-40792 Level 3 Est. Patient 14:43:55 [employer] Vishal Hui MD [facility] CPT-69572 Level 3 Est. Patient 15:26:33 [employer] Sahara Rodriguez MD PhD [facility] CPT-48791 Level 3 Est. Patient 10:32:14 [employer] Vishal Hui MD [facility] CPT-29668 Level 3 Est. Patient 15:12:52 [employer] Vishal Hui MD [facility] CPT-23282 Level 4 Est. Patient 09:19:27 CDT Vishal Hui MD [facility] CPT-66011 Level 3 Est. Patient 15:53:00 CDT Renzo Thornton [facility] CPT-52325 Level 3 Est. Patient 15:50:30 CDT Renzo Jenn Norberto [facility] CPT-86777 Level 3 Est. Patient 16:55:24 CDT Vishal Hui MD [facility] Procedures Code Procedure Name Date Entry Date Standard Description CPT-16855 Nexplanon Removal with Reinsertion 14:09:32 CDT CPT-J7307 Nexplanon (Implant) 14:09:32 CDT CPT-OV Office Visit 14:09:32 CDT CPT-62763 UA w micro - LAB USE ONLY 16:21:13 CDT CPT-27234 Wet Mount - LAB USE ONLY 16:21:13 CDT CPT-75264 First Vx - Ix admin for Medicare patients 14:37:47 CDT CPT-73441 Fluzone Preservative Free Intramuscular Suspension 14:37 :47 CDT CPT-04664 Abx/Therapy Injection 13:54:22 CDT CPT-30888 Abx/Therapy Injection 08:47:09 CDT CPT-63916 Abx/Therapy Injection 13:29:56 CDT CPT-17350 Abx/Therapy Injection 08:36:16 CDT CPT-68712 Wet Mount - LAB USE ONLY 17:44:58 CDT CPT-00625 UA w micro - LAB USE ONLY 17:44:58 CDT CPT-33227 CMP - LAB USE ONLY 17:44:58 CDT CPT-36464 Venipuncture Draw Fee 17:44:58 CDT CPT-69159 Cervical Min 4V - XRAY USE ONLY 09:01:40 CDT CPT-17354 Chest 2V Frontal and Lat - XRAY USE ONLY 11:06:31 CDT CPT-38334 EKG Trac and Interp - XRAY USE ONLY 11:31:43 CDT 08/26 CPT-J3420 Vitamin B12 1000mcg (Cyanocobalamin) 08:10:26 [employer] 04/12 CPT-74002 Abx/Therapy Injection 08:10:26 [employer] CPT-G0438 Initial Annual Wellness Exam 19:01:01 [employer] CPT-J3420 Vitamin B12 1000mcg (Cyanocobalamin) 16:57:46 CDT 08/14 CPT-71766 Recombivax HB Injection Suspension 5 MCG/0.5ML 08:37:50 [employer] CPT-72711 Immunization Single Admin 08:37:50 [employer] CPT-J3420 Vitamin B12 1000mcg (Cyanocobalamin) 08:32:16 [employer] 03/11 CPT-36829 Abx/Therapy Injection 08:32:16 [employer] CPT-51574 Chest 2V Frontal and Lat 11:46:38 [employer] CPT-35433 Venipuncture Draw Fee 09:12:45 [employer] CPT-J3420 Vitamin B12 1000mcg (Cyanocobalamin) 08:50:15 [employer] 02/08 CPT-99883 Abx/Therapy Injection 08:50:15 [employer] CPT-Cryo Cryotherapy 10:19:35 [employer] CPT-000 Give Appropriate Flu Vaccine 09:22:16 CDT CPT-J3420 Vitamin B12 1000mcg (Cyanocobalamin) 19:08:57 CDT 01/11 CPT-93559 Abx/Therapy Injection 19:08:57 CDT CPT-J3420 Vitamin B12 1000mcg (Cyanocobalamin) 08:19:08 CDT 12/11 CPT-44382 Abx/Therapy Injection 08:19:08 CDT CPT-J3420 Vitamin B12 1000mcg (Cyanocobalamin) 14:48:00 CDT 11/09 CPT-09154 Abx/Therapy Injection 14:47:59 CDT CPT-J3420 Vitamin B12 1000mcg (Cyanocobalamin) 08:34:04 CDT 10/09 CPT-73576 Abx/Therapy Injection 08:34:04 CDT CPT-J3420 Vitamin B12 1000mcg (Cyanocobalamin) 09:18:52 CDT 09/11 CPT-31512 Abx/Therapy Injection 09:18:52 CDT CPT-J3420 Vitamin B12 1000mcg (Cyanocobalamin) 08:35:44 CDT 09/04 CPT-03733 Abx/Therapy Injection 08:35:44 CDT CPT-75467 Immunization Single Admin 11:07:16 CDT CPT-23602 Hepatitis B adult IM 11:07:16 CDT CPT-J3420 Vitamin B12 1000mcg (Cyanocobalamin) 11:00:49 CDT 08/28 CPT-J1040 Depo Medrol 80 mg (Methyl Prednisolone Acetate) 11:00: 49 CDT CPT-44760 Abx/Therapy Injection 11:00:49 CDT CPT-J1040 Depo Medrol 80 mg (Methyl Prednisolone Acetate) 09:16: 23 CDT CPT-J3420 Vitamin B12 1000mcg (Cyanocobalamin) 08:27:05 CDT 08/20 CPT-89181 Abx/Therapy Injection 08:27:05 CDT CPT-54757 Recombivax HB Injection Suspension 5 MCG/0.5ML 10:00:41 CDT CPT-10362 Administration single or combination vaccine inc oral 10 :00:41 CDT CPT-28639 Sono transvag pelvis non OB uterus ovaries cervix 16:36: 57 CDT CPT-67106 LS spine comp w obliq 09:50:55 [employer] CPT-16268 Abd compl w upright 09:50:55 [employer] CPT-J1100 Decadron 4mg (Dexamethasone) 15:51:24 [employer] CPT-J1030 Depo Medrol 40 mg (Methyl Prednisolone Acetate) 15:51: 24 [employer] CPT-47248 Abx/Therapy Injection 15:51:24 [employer] CPT-J1100 Decadron 4mg (Dexamethasone) 15:26:33 [employer] CPT-J1030 Depo Medrol 40 mg (Methyl Prednisolone Acetate) 15:26: 33 [employer] CPT-26884 Sono retroperitoneal complete kidneys and bladder 17:15: 30 CDT CPT-73378 Abd compl w upright 16:09:25 CDT CPT-J1100 Decadron 8mg (Dexamethasone) 17:07:57 CDT CPT-40505 Abx/Therapy Injection 17:07:57 CDT CPT-J1100 Decadron 8mg (Dexamethasone) 16:55:24 CDT CPT-07625 Chest 2V Frontal and Lat 16:32:44 CDT
--- OUTSIDE RECORDS SUMMARY | 2016-11-04 21:50 | XMS REPORT | Clinical Summary ---
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 LAMOTRIGINE 79165562556 Active Ahmet Carbajal MD Active PREDNISONE 20 MG TABS 2 daily for 5 days then 1 daily for 5 days PREDNISONE 40670867315 No Longer Active Ahmet Carbajal MD Active FLUTICASONE PROPIONATE 50 MCG/ACT SUSP 1 to 2 sprays each nostril daily for allergies FLUTICASONE PROPIONATE 64252634083 Active Tila Valenzuela Active GUAIFENESIN-CODEINE 100-10 MG/5ML SYRP 5ml every 4 to 6 hours as needed for cough GUAIFENESIN-CODEINE 24302374930 Active Ahmet Carbajal MD Active BENADRYL 25 MG CAP 4 po at bedtime for insomnia DIPHENHYDRAMINE HCL 08411117960 No Longer Active Ahmet Carbajal MD Active ADVAIR DISKUS 250-50 MCG/DOSE INH AEPB 1 puff twice a day for asthma FLUTICASONE-SALMETEROL 66834513055 No Longer Active Ahmet Carbajal MD Active KLONOPIN 1 MG ORAL TABS 1 tab po TID CLONAZEPAM 12842462045 No Longer Active Ahmet Carbajal MD Active ABILIFY MAINTENA 400 MG IM SUSR 400mg injection every 26 days ARIPIPRAZOLE 55699879808 No Longer Active Ahmet Carbajal MD Active HALOPERIDOL 10 MG ORAL TABS 1 tab q.d HALOPERIDOL 25875563974 Active Ahmet Carbajal MD Active ASPIRIN 325 MG ORAL TABS 1 tab q.d ASPIRIN 88462097639 Active Ahmet Carbajal MD Active TRAMADOL HCL 50 MG TABS 1/2-1 tab TID PRN TRAMADOL HCL 86765863325 No Longer Active Ahmet Carbajal MD Active BACTRIM DS 800-160 MG TABS 1 twice a day SULFAMETHOXAZOLE- TRIMETHOPRIM 33778459478 No Longer Active Ahmet Carbajal MD Active PROAIR HFA 108 (90 BASE) MCG/ACT AERS 2 puffs four times a day as needed 2015 ALBUTEROL SULFATE 18664911965 Active Ahmet Carbajal MD Active EQ NICOTINE 21 MG/24HR TRANS PT24 Apply daily to stop smoking NICOTINE 59073167767 Active Ahmet Carbajal MD Active MONISTAT 7 COMBO PACK WOODROW 100 & 2 MG-% (9GM) VAG KIT 1 applicatorful per vagina q pm x 7 MICONAZOLE NITRATE 07694620647 No Longer Active Ahmet Carbajal MD Active FLAGYL 500 MG TAB 1 tablet by mouth bid METRONIDAZOLE 50032442614 No Longer Active Ahmet Carbajal MD Active OXYCODONE HCL ER 10 MG ORAL T12A 1/2 tab by mouth every 4 hours prn OXYCODONE HCL 04367557856 No Longer Active Ahmet Carbajal MD Active METHYLPREDNISOLONE 4 MG ORAL TABS po daily METHYLPREDNISOLONE 07483389505 No Longer Active Ahmet Carbajal MD Active LEVOFLOXACIN 500 MG ORAL TABS po daily LEVOFLOXACIN 50882888558 No Longer Active Ahmet Carbajal MD Active VIIBRYD 10 MG ORAL TABS Take 1 tablet once a day VILAZODONE HCL 28587333925 No Longer Active Ahmet Carbajal MD Active TOPAMAX 50 MG ORAL TABS 1 tab twice daily TOPIRAMATE 35148203181 No Longer Active Ahmet Carbajal MD Active DICLOFENAC SODIUM 50 MG TBEC 1 tablet by mouth four times daily PRN Pain 2015 DICLOFENAC SODIUM 99733010738 No Longer Active Ahmet Carbajal MD Active ADZENYS XR-ODT 6.3 MG ORAL TBED 1 tab po daily for ADHD AMPHETAMINE 25769741093 No Longer Active Ahmet Carbajal MD Active CHANTIX 1 MG TABS 1 twice a day to help quit smoking VARENICLINE TARTRATE 69695021475 No Longer Active Dipika Burgos MD Active CHANTIX STARTING MONTH EARNEST 0.5 MG X 11 & 1 MG X 42 TABS take as directed 2015 VARENICLINE TARTRATE 13012748065 No Longer Active Dipika Burgos MD Active TESSALON PERLES 100 MG CAP 1 to 2 tablets by mouth 3 times daily as needed for cough BENZONATATE 56734474646 No Longer Active Luigi Martínez APRN Active IMITREX 50 MG ORAL TABS 0.5 po x 1 PRN Headache. May repeat dose x 1 in 2 hours if needed SUMATRIPTAN SUCCINATE 68876418118 Active Ahmet Carbajal MD Active HYDROCODONE-ACETAMINOPHEN 5-325 MG TABS 1 to 2 four times a day as needed for pain use until can be seen by specialist HYDROCODONE- ACETAMINOPHEN 09035434267 No Longer Active Vishal Hui MD Active PROAIR HFA 108 (90 BASE) MCG/ACT AERS 2 puffs four times a day as needed 2015 ALBUTEROL SULFATE 74152771795 No Longer Active Vishal Hui MD Active PREDNISONE 20 MG TABS 2 daily for 5 days then 1 daily for 5 days PREDNISONE 50629205449 No Longer Active Vishal Hui MD Active ZITHROMAX Z-EARNEST 250 MG TABS 2 today and then 1 daily for 4 days AZITHROMYCIN 91864118329 No Longer Active Vishal Hui MD Active DICLOFENAC POTASSIUM TABS Take 1 tablet twice a day (pt. is not sure of the dose.) DICLOFENAC POTASSIUM TABS 83148722357 No Longer Active Vishal Hui MD Active VERAPAMIL HCL ER 120 MG ORAL CR-TABS Take 1 tablet by mouth twice a day. VERAPAMIL HCL 75623722619 Active Vishal Hui MD Active FLAGYL 500 MG TAB 1 tablet by mouth bid METRONIDAZOLE 42975802929 No Longer Active Vishal Hui MD Active FLUTICASONE PROPIONATE 50 MCG/ACT SUSP 2 sprays each nostril daily before bed. FLUTICASONE PROPIONATE 66049213044 Active Fabiola Johnson APRN Active VALIUM 5 MG TAB Take 1-2 tablets daily DIAZEPAM 52442237110 No Longer Active Fabiola Johnson APRN Active METOPROLOL TARTRATE 25 MG ORAL TABS 1/2 tablet twice daily for heart rate and blood pressure METOPROLOL TARTRATE 23754236630 No Longer Active Fabiola Johnson APRN Active MIRALAX ORAL POWD 17GMS DAILY IN WATER POLYETHYLENE GLYCOL 3350 07215643585 Active Vishal Hui MD Active MIRALAX PACK 1 po qd PRN Constipation POLYETHYLENE GLYCOL 3350 18245486107 No Longer Active Ahmet Carbajal MD Active MINIPRESS 2 MG CAPS 4 cap po at night PRAZOSIN HCL 38943981569 No Longer Active Ahmet Carbajal MD Active PIROXICAM 20 MG CAPS 1 cap po qd PRN Pain PIROXICAM 55212245218 No Longer Active Ahmet Carbajal MD Active TRAMADOL HCL 50 MG TABS 1-2 po TID PRN Pain TRAMADOL HCL 55087523864 No Longer Active hAmet Carbajal MD Active METOPROLOL TARTRATE 50 MG TAB 1 po bid METOPROLOL TARTRATE 91723910375 No Longer Active Ahmet Carbajal MD Active ABILIFY 15 MG ORAL TABS 1 tab daily ARIPIPRAZOLE 23852421985 No Longer Active Ahmet Carbajal MD Active PROZAC 20 MG ORAL CAPS 1 tab daily FLUOXETINE HCL 89135614547 No Longer Active Ahmet Carbajal MD Active AMBIEN 5 MG ORAL TABS 1 tab at bedtime ZOLPIDEM TARTRATE 30509836600 No Longer Active Ahmet Carbajal MD Active PREDNISONE 20 MG TAB 2 tabs daily for 4 days, 1 tab daily for 4 days, 1/2 tab daily for 4 days PREDNISONE 59504526847 No Longer Active Ahmet Carbajal MD Active KEFLEX 500 MG CAP 1 po TID x 10 days CEPHALEXIN 03746878940 No Longer Active Vishal Hui MD Active SAPHRIS 5 MG SUBL 1 po bid ASENAPINE MALEATE 54616848116 No Longer Active Jillina Mauricio RN OSTOMY Active LATUDA 80 MG TABS Take one by mouth daily LURASIDONE HCL 06970565489 No Longer Active Jillina Frazell RN OSTOMY Active AMLODIPINE BESYLATE 5 MG TABS 1 tablet by mouth daily AMLODIPINE BESYLATE 94105077835 No Longer Active Jillina Fradwightl RN OSTOMY Active AMITRIPTYLINE HCL 100 MG TAB one at hs AMITRIPTYLINE HCL 14288257317 No Longer Active Vishal Hui MD Active TRAZODONE HCL 100 MG TAB take 1 at bedtime TRAZODONE HCL 43068959908 No Longer Active Vishal Hui MD Active VYVANSE 40 MG CAPS 1 daily, LISDEXAMFETAMINE DIMESYLATE 52094307119 No Longer Active Vishal Hui MD Active IBUPROFEN 600 MG TAB 1 po TID PRN IBUPROFEN 34137960262 No Longer Active Vishal Hui MD Active PROZAC 20 MG CAP Take one by mouth daily FLUOXETINE HCL 12000486853 No Longer Active Vishal Hui MD Active ZOFRAN 4 MG TABS 1 po q6hr PRN Nausea ONDANSETRON HCL Active Vishal Hui MD Active BACTRIM DS 800-160 MG TABS 1 pill by mouth twice daily SULFAMETHOXAZOLE-TRIMETHOPRIM 97899451674 No Longer Active Sahara Rodriguez MD PhD Active DIFLUCAN 150 MG TAB 1 tablet by mouth daily FLUCONAZOLE 63504957041 No Longer Active Vishal Hui MD Active TIZANIDINE HCL 4 MG TABS 1 po q6hr PRN Muscle Spasm/Back Pain TIZANIDINE HCL 64620807940 Active Vishal Hui MD Active CLINDAMYCIN HCL 150 MG CAPS 1 four times a day CLINDAMYCIN HCL 18879701324 No Longer Active Neeraj Collins MD Active KEFLEX 500 MG ORAL CAPS 1 cap QID by mouth CEPHALEXIN 72623001356 No Longer Active Neeraj Collins MD Active DIFLUCAN 150 MG TABS 1 pill every other day x 2 doses FLUCONAZOLE 88156060768 No Longer Active Sahara Rodriguez MD PhD Active MELATONIN 3 MG CAPS 2 po q hs MELATONIN 16651920729 No Longer Active Sahara Rodriguez MD PhD Active MULTIVITAMINS CAPS Take one by mouth daily MULTIPLE VITAMIN 57814151546 No Longer Active Sahara Rodriguez MD PhD Active BACTRIM DS 800-160 MG TAB 1 tab by mouth twice daily TRIMETHOPRIM-SULFAMETHOXAZOLE 39379745235 No Longer Active Sahara Rodriguez MD PhD Active [facility] PROBIOTIC ORAL CHEW 2 daily po PROBIOTIC PRODUCT 54606956515 No Longer Active Sahara Rodriguez MD PhD Active BACTRIM DS 800-160 MG TABS 1 po BID x 7 days SULFAMETHOXAZOLE-TRIMETHOPRIM 78421726998 No Longer Active Vishal Hui MD Active CHANTIX STARTING MONTH EARNEST 0.5 MG X 11 & 1 MG X 42 TABS 0.5mg daily for 3 days , then 0.5mg BID for 4 days, then 1mg BID VARENICLINE TARTRATE 32358904315 No Longer Active TAMARA Gray Active VERAPAMIL HCL CR 120 MG TAB CR 1 po bid VERAPAMIL HCL 20468543692 No Longer Active Vishal Hui MD Active METOPROLOL SUCCINATE 50 MG TB24 1 tablet by mouth daily METOPROLOL SUCCINATE 72232393643 No Longer Active Vishal Hui MD Active SAPHRIS 10 MG SUBL 1 tab po bid ASENAPINE MALEATE 27419140897 No Longer Active Vishal Hui MD Active LISINOPRIL 20 MG TABS 1 tab po qd LISINOPRIL 36074819675 No Longer Active Vishal Hui MD Active LATUDA 20 MG TABS Take one by mouth daily LURASIDONE HCL 85378557572 No Longer Active Vishal Hui MD Active TRAZODONE HCL 50 MG TABS 1/2 tab po qd prn for anxiety TRAZODONE HCL 27550310797 No Longer Active Vishal Hui MD Active OMEPRAZOLE 20 MG TBEC 1 po q a.m. 30min prior to first food intake OMEPRAZOLE 71328568508 Active Vishal Hui MD Active RANITIDINE HCL 150 MG CAPS 1 twice a day RANITIDINE HCL 76591481543 Active Luigi Martínez APRN Active LINZESS 290 MCG CAPS Take one by mouth daily LINACLOTIDE 04628862809 No Longer Active Vishal Hui MD Active SAPHRIS 5 MG SUBL 1 tab po qd ASENAPINE MALEATE 55511481970 No Longer Active Vishal Hui MD Active ZALEPLON 10 MG CAPS 1 cap po every other night ZALEPLON 72252662967 No Longer Active Vishal Hui MD Active LYRICA 50 MG CAPS 1 tab po TID PREGABALIN 30598085410 No Longer Active Vishal Hui MD Active LORATADINE 10 MG TABS 1 tab po qd LORATADINE 59185728762 No Longer Active Vishal Hui MD Active VERAPAMIL HCL ER 180 MG CR-TABS 1 tab po bid VERAPAMIL HCL 47368958959 No Longer Active Vishal Hui MD Active MIRALAX POWD 1 capfull once daily POLYETHYLENE GLYCOL 3350 16200500969 No Longer Active Vishal Hui MD Active PREDNISONE 20 MG TABS 1 tab po qd PREDNISONE 65897225303 No Longer Active Renzo Thornton DO Active LEVOFLOXACIN 500 MG TABS 1 tab po qd LEVOFLOXACIN 58541222472 No Longer Active Renzo Thornton DO Active BUSPIRONE HCL 15 MG TABS 1 tab po TID BUSPIRONE HCL 47366486973 No Longer Active Renzo Thornton DO Active BENZTROPINE MESYLATE 1 MG TABS 1 tab po qd BENZTROPINE MESYLATE 16750865369 No Longer Active Renzo Thornton DO Active ATENOLOL 25 MG TABS 1 tab po qd ATENOLOL 01112013810 No Longer Active Renzo Thornton DO Active ESCITALOPRAM OXALATE 20 MG TABS 1 tab po qd ESCITALOPRAM OXALATE 07146082986 No Longer Active Renzo Thornton DO Active ADVAIR DISKUS 250-50 MCG/DOSE AEPB 1 puff BID FLUTICASONE-SALMETEROL 39960477704 No Longer Active Renzo Thornton DO Active PREDNISONE 20 MG TAB 2 tabs daily for 3 days, 1 tab daily for 3 days, 1/2 tab daily for 2 days PREDNISONE 24992079337 No Longer Active Vishal Hui MD Active CEFDINIR 300 MG CAPS by mouth twice a day CEFDINIR 05424702669 No Longer Active Vishal Hui MD Active LANSOPRAZOLE 30 MG CPDR 1 cap po qd LANSOPRAZOLE 05228116136 No Longer Active Vishal Hui MD Active BACLOFEN 20 MG TABS 1 tab po tid BACLOFEN 17422895437 No Longer Active Vishal Hui MD Active ADVAIR DISKUS 250-50 MCG/DOSE AEPB 1 puff BID ADVAIR DISKUS 250-50 MCG/DOSE AEPB FLUTICASONE-SALMETEROL Inactive ESCITALOPRAM OXALATE 20 MG TABS 1 tab po qd ESCITALOPRAM OXALATE 20 MG TABS 087459 ESCITALOPRAM OXALATE Inactive ATENOLOL 25 MG TABS 1 tab po qd ATENOLOL 25 MG TABS 812192 ATENOLOL Inactive BENZTROPINE MESYLATE 1 MG TABS 1 tab po qd BENZTROPINE MESYLATE 1 MG TABS 701872 BENZTROPINE MESYLATE Inactive BUSPIRONE HCL 15 MG TABS 1 tab po TID BUSPIRONE HCL 15 MG TABS 163829 BUSPIRONE HCL Inactive LEVOFLOXACIN 500 MG TABS 1 tab po qd LEVOFLOXACIN 500 MG TABS 631082 LEVOFLOXACIN Inactive PREDNISONE 20 MG TABS 1 tab po qd PREDNISONE 20 MG TABS 908217 PREDNISONE Inactive MIRALAX POWD 1 capfull once daily MIRALAX POWD 328149 POLYETHYLENE GLYCOL 3350 Inactive VERAPAMIL HCL ER 180 MG CR-TABS 1 tab po bid VERAPAMIL HCL ER 180 MG CR-TABS VERAPAMIL HCL Inactive LORATADINE 10 MG TABS 1 tab po qd LORATADINE 10 MG TABS 551767 LORATADINE Inactive LYRICA 50 MG CAPS 1 tab po TID LYRICA 50 MG CAPS PREGABALIN Inactive ZALEPLON 10 MG CAPS 1 cap po every other night ZALEPLON 10 MG CAPS 679386 ZALEPLON Inactive SAPHRIS 5 MG SUBL 1 tab po qd SAPHRIS 5 MG SUBL ASENAPINE MALEATE Inactive TRAZODONE HCL 50 MG TABS 1/2 tab po qd prn for anxiety TRAZODONE HCL 50 MG TABS 789490 TRAZODONE HCL Inactive LATUDA 20 MG TABS Take one by mouth daily LATUDA 20 MG TABS LURASIDONE HCL Inactive LISINOPRIL 20 MG TABS 1 tab po qd LISINOPRIL 20 MG TABS 127672 LISINOPRIL Inactive SAPHRIS 10 MG SUBL 1 [...] twice daily BACTRIM DS 800-160 MG TAB 024599 TRIMETHOPRIM-SULFAMETHOXAZOLE Inactive MULTIVITAMINS CAPS Take one by mouth daily MULTIVITAMINS CAPS MULTIPLE VITAMIN Inactive MELATONIN 3 MG CAPS 2 po q hs MELATONIN 3 MG CAPS 595040 MELATONIN Inactive KEFLEX 500 MG ORAL CAPS 1 cap QID by mouth KEFLEX 500 MG ORAL CAPS 081781 CEPHALEXIN Inactive CLINDAMYCIN HCL 150 MG CAPS 1 four times a day CLINDAMYCIN HCL 150 MG CAPS 19740326 CLINDAMYCIN HCL Inactive DIFLUCAN 150 MG TAB 1 tablet by mouth daily DIFLUCAN 150 MG TAB 180452 FLUCONAZOLE Inactive PROZAC 20 MG CAP Take one by mouth daily PROZAC 20 MG CAP 309944 FLUOXETINE HCL Inactive IBUPROFEN 600 MG TAB 1 po TID PRN IBUPROFEN 600 MG TAB 499210 IBUPROFEN Inactive VYVANSE 40 MG CAPS 1 daily, VYVANSE 40 MG CAPS LISDEXAMFETAMINE DIMESYLATE Inactive TRAZODONE HCL 100 MG TAB take 1 at bedtime TRAZODONE HCL 100 MG TAB 581020 TRAZODONE HCL Inactive AMITRIPTYLINE HCL 100 MG TAB one at hs AMITRIPTYLINE HCL 100 MG TAB 957683 AMITRIPTYLINE HCL Inactive AMLODIPINE BESYLATE 5 MG TABS 1 tablet by mouth daily AMLODIPINE BESYLATE 5 MG TABS 548481 AMLODIPINE BESYLATE Inactive LATUDA 80 MG TABS Take one by mouth daily LATUDA 80 MG TABS LURASIDONE HCL Inactive SAPHRIS 5 MG SUBL 1 po bid SAPHRIS 5 MG SUBL ASENAPINE MALEATE Inactive PREDNISONE 20 MG TAB 2 tabs daily for 4 days, 1 tab daily for 4 days, 1/2 tab daily for 4 days PREDNISONE 20 MG TAB 078454 PREDNISONE Inactive AMBIEN 5 MG ORAL TABS 1 tab at bedtime AMBIEN 5 MG ORAL TABS 871096 ZOLPIDEM TARTRATE Inactive PROZAC 20 MG ORAL CAPS 1 tab daily PROZAC 20 MG ORAL CAPS 510188 FLUOXETINE HCL Inactive ABILIFY 15 MG ORAL TABS 1 tab daily ABILIFY 15 MG ORAL TABS 982217 ARIPIPRAZOLE Inactive METOPROLOL TARTRATE 50 MG TAB 1 po bid METOPROLOL TARTRATE 50 MG TAB 273106 METOPROLOL TARTRATE Inactive TRAMADOL HCL 50 MG TABS 1-2 po TID PRN Pain TRAMADOL HCL 50 MG TABS 904495 TRAMADOL HCL Inactive PIROXICAM 20 MG CAPS 1 cap po qd PRN Pain PIROXICAM 20 MG CAPS 268220 PIROXICAM Inactive MINIPRESS 2 MG CAPS 4 cap po at night MINIPRESS 2 MG CAPS 214004 PRAZOSIN HCL Inactive MIRALAX PACK 1 po qd PRN Constipation MIRALAX PACK 201744 POLYETHYLENE GLYCOL 3350 Inactive METOPROLOL TARTRATE 25 MG ORAL TABS 1/2 tablet twice daily for heart rate and blood pressure METOPROLOL TARTRATE 25 MG ORAL TABS 394016 METOPROLOL TARTRATE Inactive VALIUM 5 MG TAB Take 1-2 tablets daily VALIUM 5 MG TAB 558626 DIAZEPAM Inactive FLAGYL 500 MG TAB 1 tablet by mouth bid FLAGYL 500 MG TAB 757346 METRONIDAZOLE Inactive DICLOFENAC POTASSIUM TABS Take 1 tablet twice a day (pt. is not sure of the dose.) DICLOFENAC POTASSIUM TABS DICLOFENAC POTASSIUM TABS Inactive ZITHROMAX Z-EARNEST 250 MG TABS 2 today and then 1 daily for 4 days ZITHROMAX Z-EARNEST 250 MG TABS 0708842 AZITHROMYCIN Inactive PREDNISONE 20 MG TABS 2 daily for 5 days then 1 daily for 5 days PREDNISONE 20 MG TABS 269199 PREDNISONE Inactive PROAIR HFA 108 (90 BASE) MCG/ACT AERS 2 puffs four times a day as needed 2015 PROAIR HFA 108 (90 BASE) MCG/ACT AERS ALBUTEROL SULFATE Inactive HYDROCODONE-ACETAMINOPHEN 5-325 MG TABS 1 to 2 four times a day as needed for pain use until can be seen by specialist HYDROCODONE- ACETAMINOPHEN 5-325 MG TABS 202540 HYDROCODONE-ACETAMINOPHEN Inactive TESSALON PERLES 100 MG CAP 1 to 2 tablets by mouth 3 times daily as needed for cough TESSALON PERLES 100 MG CAP 864379 BENZONATATE Inactive CHANTIX STARTING MONTH EARNEST 0.5 [...] Pain 2015 DICLOFENAC SODIUM 50 MG TBEC 376190 DICLOFENAC SODIUM Inactive TOPAMAX 50 MG ORAL TABS 1 tab twice daily TOPAMAX 50 MG ORAL TABS 473077 TOPIRAMATE Inactive VIIBRYD 10 MG ORAL TABS Take 1 tablet once a day VIIBRYD 10 MG ORAL TABS VILAZODONE HCL Inactive LEVOFLOXACIN 500 MG ORAL TABS po daily LEVOFLOXACIN 500 MG ORAL TABS 235946 LEVOFLOXACIN Inactive METHYLPREDNISOLONE 4 MG ORAL TABS po daily METHYLPREDNISOLONE 4 MG ORAL TABS 664483 METHYLPREDNISOLONE Inactive OXYCODONE HCL ER 10 MG ORAL T12A 1/2 tab by mouth every 4 hours prn OXYCODONE HCL ER 10 MG ORAL T12A OXYCODONE HCL Inactive FLAGYL 500 MG TAB 1 tablet by mouth bid FLAGYL 500 MG TAB 366478 METRONIDAZOLE Inactive MONISTAT 7 COMBO PACK WOODROW 100 & 2 MG-% (9GM) VAG KIT 1 applicatorful per vagina q pm x 7 MONISTAT 7 COMBO PACK WOODROW 100 & 2 MG-% (9GM) VAG KIT MICONAZOLE NITRATE Inactive BACTRIM DS 800-160 MG TABS 1 twice a day BACTRIM DS 800-160 MG TABS 223321 SULFAMETHOXAZOLE-TRIMETHOPRIM Inactive TRAMADOL HCL 50 MG TABS 1/2-1 tab TID PRN TRAMADOL HCL 50 MG TABS 944465 TRAMADOL HCL Inactive ABILIFY MAINTENA 400 MG IM SUSR 400mg injection every 26 days ABILIFY MAINTENA 400 MG IM SUSR ARIPIPRAZOLE Inactive KLONOPIN 1 MG ORAL TABS 1 tab po TID KLONOPIN 1 MG ORAL TABS 385982 CLONAZEPAM Inactive ADVAIR DISKUS 250-50 MCG/DOSE INH AEPB 1 puff twice a day for asthma ADVAIR DISKUS 250-50 MCG/DOSE INH AEPB FLUTICASONE- SALMETEROL Inactive BENADRYL 25 MG CAP 4 po at bedtime for insomnia BENADRYL 25 MG CAP DIPHENHYDRAMINE HCL Inactive PREDNISONE 20 MG TABS 2 daily for 5 days then 1 daily for 5 days PREDNISONE 20 MG TABS 336649 PREDNISONE Inactive HYDROCODONE-ACETAMINOPHEN 5-325 MG ORAL TABS 1 tab two times a day HYDROCODONE-ACETAMINOPHEN 5-325 MG ORAL TABS 517611 HYDROCODONE-ACETAMINOPHEN Inactive CEFDINIR 300 MG CAPS by mouth twice a day CEFDINIR 300 MG CAPS 317172 CEFDINIR Inactive PREDNISONE 20 MG TAB 2 tabs daily for 3 days, 1 tab daily for 3 days, 1/2 tab daily for 2 days PREDNISONE 20 MG TAB 635923 PREDNISONE Inactive BACTRIM DS 800-160 MG TABS 1 po BID x 7 days BACTRIM DS 800-160 MG TABS 19820521 SULFAMETHOXAZOLE-TRIMETHOPRIM Inactive DIFLUCAN 150 MG TABS 1 pill every other day x 2 doses DIFLUCAN 150 MG TABS 618264 FLUCONAZOLE Inactive BACTRIM DS 800-160 MG TABS 1 pill by mouth twice daily BACTRIM DS 800-160 MG TABS 784287 SULFAMETHOXAZOLE-TRIMETHOPRIM Inactive KEFLEX 500 MG CAP 1 po TID x 10 days KEFLEX 500 MG CAP 820317 CEPHALEXIN Inactive Advance Directives Directive Description Start [...] 369 10^3/MM^3 10*3/mm3 142-424 Lab Report: Chlamydia/GC APTIMA/[id number] - Lab chlamydia DNA probe NOT DETECTED NOT DETECTED Lab Report: Chlamydia/GC [facility]TIMA/[id number] - Microbiology Neisseria gonorrhoeae DNA probe NOT DETECTED NOT DETECTED Lab Report: Comp. Metabolic Panel - Chemistry sodium, serum 142 mmol/L 199-170 2094/06/08 carbon dioxide, venous blood 27.6 mmol/L 21.0-32.0 potassium, serum 4.0 mmol/L 3.5-5.2 chloride, serum 105 mmol/L 98-107 blood glucose 95 mg/dL 65-110 urea nitrogen, blood 8 mg/dL 7-18 creatinine, serum 0.75 mg/dL 0.55-1.30 alanine aminotransferase (SGPT), serum 49 U/L -78 aspartate aminotransferase (SGOT), serum 28 U/L 15-37 calcium, serum 9.4 mg/dL 8.5-10.1 bilirubin, serum, total 0.30 mg/dL 0.00-1.00 sodium, serum 140 mmol/L 918-126 6764/08/08 carbon dioxide, venous blood 33.7 mmol/L 21.0-32.0 [...] mg/dL Encounters Code Encounter Date Provider Facility [id number] Level 3 Est. Patient 11:47:37 DIRECTOR PACKAGING Ahmet Carbajal MD [facility] CPT-07570 Level 3 Est. Patient 10:40:11 DIRECTOR PACKAGING Ahmet Carbajal MD [facility] CPT-20488 Level 3 Est. Patient 15:07:06 DIRECTOR PACKAGING Neeraj Collins MD [facility] CPT-21291 Level 4 Est. Patient 14:45:00 DIRECTOR PACKAGING Ahmet Carbajal MD [facility] CPT-27589 Level 3 Est. Patient 13:59:59 CDT [facility] CPT-45559 Level 3 Est. Patient 18:18:53 CDT Neeraj Collins MD [facility] CPT-99104 Level 3 Est. Patient 15:50:44 CDT Vishal Hui MD [facility] CPT-10500 Level 3 Est. Patient 11:36:17 CDT Ahmet Carbajal MD [facility] CPT-39740 Level 3 Est. Patient 13:29:16 CDT Vishal Hui MD [facility] CPT-23564 Level 3 Est. Patient 14:27:52 CDT Neeraj Collins MD [facility] CPT-89652 Level 3 Est. Patient 08:56:03 CDT [facility] CPT-35478 Level 4 Est. Patient 12:11:48 CDT [facility] CPT-95160 Level 3 New Patient 16:53:37 CDT Albert Caldera MD [facility] CPT-12561 Level 3 Est. Patient 11:25:49 CDT Renzo Thornton DO [facility] CPT-44720 Level 3 Est. Patient 15:22:01 CDT Ahmet Carbajal MD [facility] CPT-15520 Level 4 Est. Patient 09:00:51 DIRECTOR PACKAGING Vishal Hui MD [facility] CPT-75836 Level 3 Est. Patient 11:37:33 DIRECTOR PACKAGING Vishal Hui MD [facility] CPT-30494 Level 3 Est. Patient 08:41:09 DIRECTOR PACKAGING Vishal Hui MD [facility] CPT-32465 Level 4 Est. Patient 10:19:35 DIRECTOR PACKAGING Vishal Hui MD [facility] CPT-86593 Level 3 Est. Patient 13:35:45 CDT Vishal Hui MD [facility] CPT-75305 Level 4 Est. Patient 10:08:37 CDT Vishal Hui MD [facility] CPT-87639 Level 3 Est. Patient 11:22:10 CDT Vishal Hui MD [facility] CPT-11962 Level 3 Est. Patient 11:03:32 CDT Sahara Rodriguez MD [facility]-37622 Level 3 Est. Patient 09:41:35 CDT Vishal Hui MD [facility] CPT-58451 Level 3 Est. Patient 12:00:41 CDT Neeraj Collins MD [facility] CPT-61828 Level 3 Est. Patient 09:16:24 CDT Vishal Hui MD [facility] CPT-00266 Level 4 Est. Patient 13:59:09 CDT Neeraj Collins MD [facility] CPT-59563 Level 3 Est. Patient 15:19:43 CDT Renzo Thornton DO [facility] CPT-94086 Level 3 Est. Patient 18:10:26 CDT Sahara Rodriguez MD [facility]-99998 Level 3 Est. Patient 14:49:50 CDT Vishal Hui MD [facility] CPT-30609 Level 4 Est. Patient 18:41:46 CDT Neeraj Collins MD [facility] CPT-22330 Level 4 Est. Patient 09:18:38 DIRECTOR PACKAGING Vishal Hui MD [facility] CPT-53662 Level 3 Est. Patient 14:43:55 DIRECTOR PACKAGING Vishal Hui MD [facility] CPT-36415 Level 3 Est. Patient 15:26:33 DIRECTOR PACKAGING Sahara Rodriguez MD PhD [facility] CPT-35585 Level 3 Est. Patient 10:32:14 DIRECTOR PACKAGING Vishal Hui MD [facility] CPT-05381 Level 3 Est. Patient 15:12:52 DIRECTOR PACKAGING Vishal Hui MD [facility] CPT-37086 Level 4 Est. Patient 09:19:27 CDT Vishal Hui MD [facility] CPT-06046 Level 3 Est. Patient 15:53:00 CDT Renzo Barajas [facility] CPT-70001 Level 3 Est. Patient 15:50:30 CDT Renzo Thornton [facility] CPT-30526 Level 3 Est. Patient 16:55:24 CDT Vishal Hui MD [facility] Procedures Code Procedure Name Date Entry Date Standard Description CPT-G0439 [facility] Annual Wellness Exam 09:30:58 DIRECTOR PACKAGING CPT-79785 TSH - LAB USE ONLY 08:50:26 DIRECTOR PACKAGING CPT-81961 CBC - LAB USE ONLY 08:50:26 DIRECTOR PACKAGING CPT-26126 Venipuncture Draw Fee 08:50:26 DIRECTOR PACKAGING CPT-94374 Abx/Therapy Injection 17:34:30 DIRECTOR PACKAGING CPT-67688 Nexplanon Removal with Reinsertion 14:09:32 CDT CPT-J7307 Nexplanon (Implant) 14:09:32 CDT CPT-OV Office Visit 14:09:32 CDT CPT-35050 UA w micro - LAB USE ONLY 16:21:13 CDT CPT-87905 Wet Mount - LAB USE ONLY 16:21:13 CDT CPT-71614 First Vx - Ix admin for Medicare patients 14:37:47 CDT CPT-50062 Fluzone Preservative Free Intramuscular Suspension 14:37 :47 CDT CPT-91972 Abx/Therapy Injection 13:54:22 CDT CPT-05738 Abx/Therapy Injection 08:47:09 CDT CPT-79023 Abx/Therapy Injection 13:29:56 CDT CPT-67834 Abx/Therapy Injection 08:36:16 CDT CPT-80497 Wet Mount - LAB USE ONLY 17:44:58 CDT CPT-32346 UA w micro - LAB USE ONLY 17:44:58 CDT CPT-92631 CMP - LAB USE ONLY 17:44:58 CDT CPT-67163 Venipuncture Draw Fee 17:44:58 CDT CPT-19942 Cervical Min 4V - XRAY USE ONLY 09:01:40 CDT CPT-69873 Chest 2V Frontal and Lat - XRAY USE ONLY 11:06:31 CDT CPT-92760 EKG Trac and Interp - XRAY USE ONLY 11:31:43 CDT 08/26 CPT-J3420 Vitamin B12 1000mcg (Cyanocobalamin) 08:10:26 DIRECTOR PACKAGING 04/12 CPT-47290 Abx/Therapy Injection 08:10:26 DIRECTOR PACKAGING CPT-G0438 Initial Annual Wellness Exam 19:01:01 DIRECTOR PACKAGING CPT-J3420 Vitamin B12 1000mcg (Cyanocobalamin) 16:57:46 CDT 08/14 CPT-30876 Recombivax HB Injection Suspension 5 MCG/0.5ML 08:37:50 DIRECTOR PACKAGING CPT-55427 Immunization Single Admin 08:37:50 DIRECTOR PACKAGING CPT-J3420 Vitamin B12 1000mcg (Cyanocobalamin) 08:32:16 DIRECTOR PACKAGING 03/11 CPT-46519 Abx/Therapy Injection 08:32:16 DIRECTOR PACKAGING CPT-41630 Chest 2V Frontal and Lat 11:46:38 DIRECTOR PACKAGING CPT-94393 Venipuncture Draw Fee 09:12:45 DIRECTOR PACKAGING CPT-J3420 Vitamin B12 1000mcg (Cyanocobalamin) 08:50:15 DIRECTOR PACKAGING 02/08 CPT-68239 Abx/Therapy Injection 08:50:15 DIRECTOR PACKAGING CPT-Cryo Cryotherapy 10:19:35 DIRECTOR PACKAGING CPT-000 Give Appropriate Flu Vaccine 09:22:16 CDT CPT-J3420 Vitamin B12 1000mcg (Cyanocobalamin) 19:08:57 CDT 01/11 CPT-31877 Abx/Therapy Injection 19:08:57 CDT CPT-J3420 Vitamin B12 1000mcg (Cyanocobalamin) 08:19:08 CDT 12/11 CPT-92462 Abx/Therapy Injection 08:19:08 CDT CPT-J3420 Vitamin B12 1000mcg (Cyanocobalamin) 14:48:00 CDT 11/09 CPT-50041 Abx/Therapy Injection 14:47:59 CDT CPT-J3420 Vitamin B12 1000mcg (Cyanocobalamin) 08:34:04 CDT 10/09 CPT-50893 Abx/Therapy Injection 08:34:04 CDT CPT-J3420 Vitamin B12 1000mcg (Cyanocobalamin) 09:18:52 CDT 09/11 CPT-99749 Abx/Therapy Injection 09:18:52 CDT CPT-J3420 Vitamin B12 1000mcg (Cyanocobalamin) 08:35:44 CDT 09/04 CPT-16387 Abx/Therapy Injection 08:35:44 CDT CPT-73652 Immunization Single Admin 11:07:16 CDT CPT-40830 Hepatitis B adult IM 11:07:16 CDT CPT-J3420 Vitamin B12 1000mcg (Cyanocobalamin) 11:00:49 CDT 08/28 CPT-J1040 Depo Medrol 80 mg (Methyl Prednisolone Acetate) 11:00: 49 CDT CPT-83387 Abx/Therapy Injection 11:00:49 CDT CPT-J1040 Depo Medrol 80 mg (Methyl Prednisolone Acetate) 09:16: 23 CDT CPT-J3420 Vitamin B12 1000mcg (Cyanocobalamin) 08:27:05 CDT 08/20 CPT-85294 Abx/Therapy Injection 08:27:05 CDT CPT-03931 Recombivax HB Injection Suspension 5 MCG/0.5ML 10:00:41 CDT CPT-65898 Administration single or combination vaccine inc oral 10 :00:41 CDT CPT-92635 Sono transvag pelvis non OB uterus ovaries cervix 16:36: 57 CDT CPT-50184 LS spine comp w obliq 09:50:55 DIRECTOR PACKAGING CPT-29701 Abd compl w upright 09:50:55 DIRECTOR PACKAGING CPT-J1100 Decadron 4mg (Dexamethasone) 15:51:24 DIRECTOR PACKAGING CPT-J1030 Depo Medrol 40 mg (Methyl Prednisolone Acetate) 15:51: 24 DIRECTOR PACKAGING CPT-98627 Abx/Therapy Injection 15:51:24 DIRECTOR PACKAGING CPT-J1100 Decadron 4mg (Dexamethasone) 15:26:33 DIRECTOR PACKAGING CPT-J1030 Depo Medrol 40 mg (Methyl Prednisolone Acetate) 15:26: 33 DIRECTOR PACKAGING CPT-98247 Sono retroperitoneal complete kidneys and bladder 17:15: 30 CDT CPT-09006 Abd compl w upright 16:09:25 CDT CPT-J1100 Decadron 8mg (Dexamethasone) 17:07:57 CDT CPT-14165 Abx/Therapy Injection 17:07:57 CDT CPT-J1100 Decadron 8mg (Dexamethasone) 16:55:24 CDT CPT-35979 Chest 2V Frontal and Lat 16:32:44 CDT
--- OUTSIDE RECORDS SUMMARY | 2016-11-04 21:52 | XMS REPORT | Clinical Summary ---
Author Author Admin, E Organization [employer] Address Unknown Phone Unavailable Allergies, Adverse Reactions, [...] sites Morbid obesity 278.01 Active Juliet Kimbrough DEVELOPMENT TECHNICAL LEAD Morbid obesity 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 Active Juliet Kimbrough DEVELOPMENT TECHNICAL LEAD Dependence on other enabling machines and devices [...] IM SUSR Injection once per month ARIPIPRAZOLE 31300590673 Active Juliet Kimbrough APRN Active PREDNISONE 20 MG TAB 2 tabs daily for 4 days, 1 tab daily for 4 days, 1/2 tab daily for 4 days PREDNISONE 17591515457 Active Vishal Hui MD Active IMITREX 50 MG ORAL TABS 1/2 tab every 6 hours prn SUMATRIPTAN SUCCINATE 94905162409 Active Jillina Mauricio WALTERSN Active AMBIEN 5 MG ORAL TABS 1 tab at bedtime ZOLPIDEM TARTRATE 72482707217 Active Pacollina Mauricio WALTERSN Active PROZAC 20 MG ORAL CAPS 1 tab daily FLUOXETINE HCL 12574014782 Active Tataina Mauricio WALTERSN Active ABILIFY 15 MG ORAL TABS 1 tab daily ARIPIPRAZOLE 25065072054 Active Pacollina Mauricio WALTERSN Active MINIPRESS 2 MG CAPS 4 cap po at night PRAZOSIN HCL 88594602574 Active Jillina Mauricio WALTERSN Active TOPAMAX 50 MG ORAL TABS 1 tab twice daily TOPIRAMATE 59108529360 Active Jillina Frazelephraim WALTERSN Active SAPHRIS 5 MG SUBL 1 po bid ASENAPINE MALEATE 01389779823 No Longer Active Jillina Mauricio WALTERSN Active LATUDA 80 MG TABS Take one by mouth daily LURASIDONE HCL 31747640140 No Longer Active Luigi Martínez APRN Active AMLODIPINE BESYLATE 5 MG TABS 1 tablet by mouth daily AMLODIPINE BESYLATE 70669646374 No Longer Active Luigi Martínez DEVELOPMENT TECHNICAL LEAD Active AMITRIPTYLINE HCL 100 MG TAB one at hs AMITRIPTYLINE HCL 54809661778 No Longer Active Vishal Hui MD Active TRAZODONE HCL 100 MG TAB take 1 at bedtime TRAZODONE HCL 25923236433 No Longer Active Vishal Hui MD Active VYVANSE 40 MG CAPS 1 daily, LISDEXAMFETAMINE DIMESYLATE 88612724780 No Longer Active Vishal Hui MD Active IBUPROFEN 600 MG TAB 1 po TID PRN IBUPROFEN 01853078790 No Longer Active Vishal Hui MD Active MIRALAX PACK 1 po qd PRN Constipation POLYETHYLENE GLYCOL 3350 41955984721 Active Vishal Hui MD Active PROZAC 20 MG CAP Take one by mouth daily FLUOXETINE HCL 06410749776 No Longer Active Vishal Hui MD Active ZOFRAN 4 MG TABS 1 po q6hr PRN Nausea ONDANSETRON HCL Active Vishal Hui MD Active BACTRIM DS 800-160 MG TABS 1 pill by mouth twice daily SULFAMETHOXAZOLE-TRIMETHOPRIM 58343644168 No Longer Active Sahara Rodriguez MD PhD Active DIFLUCAN 150 MG TAB 1 tablet by mouth daily FLUCONAZOLE 09367370269 No Longer Active Vishal Hui MD Active TIZANIDINE HCL 4 MG TABS 1 po q6hr PRN Muscle Spasm/Back Pain TIZANIDINE HCL 97342156489 Active Luigi Martínez APRN Active CLINDAMYCIN HCL 150 MG CAPS 1 four times a day CLINDAMYCIN HCL 23078491681 No Longer Active Neeraj Collins MD Active KEFLEX 500 MG ORAL CAPS 1 cap QID by mouth CEPHALEXIN 66866511119 No Longer Active Neeraj Collins MD Active DIFLUCAN 150 MG TABS 1 pill every other day x 2 doses FLUCONAZOLE 59039266476 No Longer Active Sahara Rodriguez MD PhD Active MELATONIN 3 MG CAPS 2 po q hs MELATONIN 93399720738 No Longer Active Sahara Rodriguez MD PhD Active MULTIVITAMINS CAPS Take one by mouth daily MULTIPLE VITAMIN 37956129721 No Longer Active Sahara Rodriguez MD PhD Active BACTRIM DS 800-160 MG TAB 1 tab by mouth twice daily TRIMETHOPRIM-SULFAMETHOXAZOLE 45566187721 No Longer Active Sahara Rodriguez MD PhD Active [facility] PROBIOTIC ORAL CHEW 2 daily po PROBIOTIC PRODUCT 49689094483 No Longer Active Sahara Rodriguez MD PhD Active BACTRIM DS 800-160 MG TABS 1 po BID x 7 days SULFAMETHOXAZOLE-TRIMETHOPRIM 00431699433 No Longer Active Vishal Hui MD Active CHANTIX STARTING MONTH EARNEST 0.5 MG X 11 & 1 MG X 42 TABS 0.5mg daily for 3 days , then 0.5mg BID for 4 days, then 1mg BID VARENICLINE TARTRATE 33539486208 No Longer Active TAMARA Gray Active METOPROLOL TARTRATE 50 MG TAB 1 po bid METOPROLOL TARTRATE 79649915266 Active Vishal Hui MD Active VERAPAMIL HCL CR 120 MG TAB CR 1 po bid VERAPAMIL HCL 71441439812 No Longer Active Vishal Hui MD Active METOPROLOL SUCCINATE 50 MG TB24 1 tablet by mouth daily METOPROLOL SUCCINATE 58509370570 No Longer Active Vishal Hui MD Active TRAMADOL HCL 50 MG TABS 1-2 po TID PRN Pain TRAMADOL HCL 21763923349 Active Luigi Martínez APRN Active SAPHRIS 10 MG SUBL 1 tab po bid ASENAPINE MALEATE 32422267729 No Longer Active Vishal Hui MD Active LISINOPRIL 20 MG TABS 1 tab po qd LISINOPRIL 80177443952 No Longer Active Vishal Hui MD Active BENADRYL 25 MG CAP 2 po tid prn anxiety DIPHENHYDRAMINE HCL 93855988911 Active Vishal Hui MD Active LATUDA 20 MG TABS Take one by mouth daily LURASIDONE HCL 78904974836 No Longer Active Vishal Hui MD Active TRAZODONE HCL 50 MG TABS 1/2 tab po qd prn for anxiety TRAZODONE HCL 58596161915 No Longer Active Vishal Hui MD Active PIROXICAM 20 MG CAPS 1 cap po qd PRN Pain PIROXICAM 26378567407 Active Vishal Hui MD Active OMEPRAZOLE 20 MG TBEC 1 po q a.m. 30min prior to first food intake OMEPRAZOLE 68018824258 Active Vishal Hui MD Active RANITIDINE HCL 150 MG CAPS 1 twice a day RANITIDINE HCL 16532938301 Active Vishal Hui MD Active LINZESS 290 MCG CAPS Take one by mouth daily LINACLOTIDE 52373799299 No Longer Active Vishal Hui MD Active SAPHRIS 5 MG SUBL 1 tab po qd ASENAPINE MALEATE 37933391598 No Longer Active Vishal Hui MD Active ZALEPLON 10 MG CAPS 1 cap po every other night ZALEPLON 81967319796 No Longer Active Vishal Hui MD Active LYRICA 50 MG CAPS 1 tab po TID PREGABALIN 70964660763 No Longer Active Vishal Hui MD Active LORATADINE 10 MG TABS 1 tab po qd LORATADINE 64260133633 No Longer Active Vishal Hui MD Active VERAPAMIL HCL ER 180 MG CR-TABS 1 tab po bid VERAPAMIL HCL 04292906882 No Longer Active Vishal Hui MD Active MIRALAX POWD 1 capfull once daily POLYETHYLENE GLYCOL 3350 57128058301 No Longer Active Vishal Hui MD Active PREDNISONE 20 MG TABS 1 tab po qd PREDNISONE 54977574025 No Longer Active Renzo Thornton DO Active LEVOFLOXACIN 500 MG TABS 1 tab po qd LEVOFLOXACIN 85558800397 No Longer Active Renzo Thornton DO Active BUSPIRONE HCL 15 MG TABS 1 tab po TID BUSPIRONE HCL 09577910907 No Longer Active Renzo Thornton DO Active BENZTROPINE MESYLATE 1 MG TABS 1 tab po qd BENZTROPINE MESYLATE 01868991234 No Longer Active Renzo Thornton DO Active ATENOLOL 25 MG TABS 1 tab po qd ATENOLOL 34824036902 No Longer Active Renzo Thornton DO Active ESCITALOPRAM OXALATE 20 MG TABS 1 tab po qd ESCITALOPRAM OXALATE 93778481366 No Longer Active Renzo Thornton DO Active ADVAIR DISKUS 250-50 MCG/DOSE AEPB 1 puff BID FLUTICASONE-SALMETEROL 71642324233 No Longer Active Renzo Thornton DO Active PREDNISONE 20 MG TAB 2 tabs daily for 3 days, 1 tab daily for 3 days, 1/2 tab daily for 2 days PREDNISONE 28546339791 No Longer Active Vishal Hui MD Active CEFDINIR 300 MG CAPS by mouth twice a day CEFDINIR 83127545523 No Longer Active Vishal Hui MD Active LANSOPRAZOLE 30 MG CPDR 1 cap po qd LANSOPRAZOLE 89545956650 No Longer Active Vishal Hui MD Active BACLOFEN 20 MG TABS 1 tab po tid BACLOFEN 17963111379 No Longer Active Vishal Hui MD Active ADVAIR DISKUS 250-50 MCG/DOSE AEPB 1 puff BID ADVAIR DISKUS 250-50 MCG/DOSE AEPB FLUTICASONE-SALMETEROL Inactive ESCITALOPRAM OXALATE 20 MG TABS 1 tab po qd ESCITALOPRAM OXALATE 20 MG TABS 963644 ESCITALOPRAM OXALATE Inactive ATENOLOL 25 MG TABS 1 tab po qd ATENOLOL 25 MG TABS 311186 ATENOLOL Inactive BENZTROPINE MESYLATE 1 MG TABS 1 tab po qd BENZTROPINE MESYLATE 1 MG TABS 943958 BENZTROPINE MESYLATE Inactive BUSPIRONE HCL 15 MG TABS 1 tab po TID BUSPIRONE HCL 15 MG TABS 552565 BUSPIRONE HCL Inactive LEVOFLOXACIN 500 MG TABS 1 tab po qd LEVOFLOXACIN 500 MG TABS 179305 LEVOFLOXACIN Inactive PREDNISONE 20 MG TABS 1 tab po qd PREDNISONE 20 MG TABS 709370 PREDNISONE Inactive MIRALAX POWD 1 capfull once daily MIRALAX POWD 303427 POLYETHYLENE GLYCOL 3350 Inactive VERAPAMIL HCL ER 180 MG CR-TABS 1 tab po bid VERAPAMIL HCL ER 180 MG CR-TABS VERAPAMIL HCL Inactive LORATADINE 10 MG TABS 1 tab po qd LORATADINE 10 MG TABS 387769 LORATADINE Inactive LYRICA 50 MG CAPS 1 tab po TID LYRICA 50 MG CAPS PREGABALIN Inactive ZALEPLON 10 MG CAPS 1 cap po every other night ZALEPLON 10 MG CAPS 650439 ZALEPLON Inactive SAPHRIS 5 MG SUBL 1 tab po qd SAPHRIS 5 MG SUBL ASENAPINE MALEATE Inactive TRAZODONE HCL 50 MG TABS 1/2 tab po qd prn for anxiety TRAZODONE HCL 50 MG TABS 731380 TRAZODONE HCL Inactive LATUDA 20 MG TABS Take one by mouth daily LATUDA 20 MG TABS LURASIDONE HCL Inactive LISINOPRIL 20 MG TABS 1 tab po qd LISINOPRIL 20 MG TABS 002101 LISINOPRIL Inactive SAPHRIS 10 MG SUBL 1 [...] twice daily BACTRIM DS 800-160 MG TAB 070926 TRIMETHOPRIM-SULFAMETHOXAZOLE Inactive MULTIVITAMINS CAPS Take one by mouth daily MULTIVITAMINS CAPS MULTIPLE VITAMIN Inactive MELATONIN 3 MG CAPS 2 po q hs MELATONIN 3 MG CAPS 136789 MELATONIN Inactive KEFLEX 500 MG ORAL CAPS 1 cap QID by mouth KEFLEX 500 MG ORAL CAPS 870272 CEPHALEXIN Inactive CLINDAMYCIN HCL 150 MG CAPS 1 four times a day CLINDAMYCIN HCL 150 MG CAPS 094645 CLINDAMYCIN HCL Inactive DIFLUCAN 150 MG TAB 1 tablet by mouth daily DIFLUCAN 150 MG TAB 566734 FLUCONAZOLE Inactive PROZAC 20 MG CAP Take one by mouth daily PROZAC 20 MG CAP 676570 FLUOXETINE HCL Inactive IBUPROFEN 600 MG TAB 1 po TID PRN IBUPROFEN 600 MG TAB 920099 IBUPROFEN Inactive VYVANSE 40 MG CAPS 1 daily, VYVANSE 40 MG CAPS LISDEXAMFETAMINE DIMESYLATE Inactive TRAZODONE HCL 100 MG TAB take 1 at bedtime TRAZODONE HCL 100 MG TAB 692653 TRAZODONE HCL Inactive AMITRIPTYLINE HCL 100 MG TAB one at hs AMITRIPTYLINE HCL 100 MG TAB 857142 AMITRIPTYLINE HCL Inactive AMLODIPINE BESYLATE 5 MG TABS 1 tablet by mouth daily AMLODIPINE BESYLATE 5 MG TABS 730690 AMLODIPINE BESYLATE Inactive LATUDA 80 MG TABS Take one by mouth daily LATUDA 80 MG TABS LURASIDONE HCL Inactive SAPHRIS 5 MG SUBL 1 po bid SAPHRIS 5 MG SUBL ASENAPINE MALEATE Inactive CEFDINIR 300 MG CAPS by mouth twice a day CEFDINIR 300 MG CAPS 281421 CEFDINIR Inactive PREDNISONE 20 MG TAB 2 tabs daily for 3 days, 1 tab daily for 3 days, 1/2 tab daily for 2 days PREDNISONE 20 MG TAB 310313 PREDNISONE Inactive BACTRIM DS 800-160 MG TABS 1 po BID x 7 days BACTRIM DS 800-160 MG TABS 19820521 SULFAMETHOXAZOLE-TRIMETHOPRIM Inactive DIFLUCAN 150 MG TABS 1 pill every other day x 2 doses DIFLUCAN 150 MG TABS 041920 FLUCONAZOLE Inactive BACTRIM DS 800-160 MG TABS [...] % 11.6-14.8 platelet count 394 10^3/MM^3 10*3/mm3 397-781 5814/01/11 leukocyte count, blood 13.8 10^3/MM^3 10*3/mm3 4.6-10.2 [...] Panel - Chemistry sodium, serum 139 mmol/L 553-411 5324/12/03 carbon dioxide, venous blood 28.5 mmol/L 21.0-32.0 [...] 5.5 % 4.3-6.0 cholesterol, serum 159 mg/dL 471-440 2344/12/03 triglyceride, serum, fasting 118 mg/dL 30-200 HDL [...] ... - Chemistry sodium, serum 140 mmol/L 219-724 4446/05/28 potassium, serum 4.2 mmol/L 3.5-5.2 chloride, serum [...] Panel - Chemistry sodium, serum 141 mmol/L [phone] potassium, serum 4.3 mmol/L 3.5-5.2 chloride, serum 106 mmol/L 98-107 carbon dioxide, venous blood 25.7 mmol/L 21.0-32.0 blood glucose 119 mg/dL 65-110 urea nitrogen, blood 22 mg/dL 7-18 creatinine, serum 0.90 mg/dL 0.60-1.30 alanine aminotransferase (SGPT), serum 28 U/L -78 aspartate aminotransferase (SGOT), serum 13 U/L 15-37 calcium, serum 8.5 mg/dL 8.5-10.1 bilirubin, serum, total 0.20 mg/dL 0.00-1.00 sodium, serum 139 mmol/L 192-327 5492/12/22 carbon dioxide, venous blood 26.8 mmol/L 21.0-32.0 potassium, serum 4.2 mmol/L 3.5-5.2 chloride, serum 103 mmol/L 98-107 blood glucose 115 mg/dL 65-110 urea nitrogen, blood 20 mg/dL 7-18 creatinine, serum 0.90 mg/dL 0.55-1.30 alanine aminotransferase (SGPT), serum 38 U/L -78 aspartate aminotransferase (SGOT), serum 19 U/L 15-37 calcium, serum 8.6 mg/dL 8.5-10.1 bilirubin, serum, total 0.30 mg/dL 0.00-1.00 sodium, serum 139 mmol/L 524-683 5709/01/11 carbon dioxide, venous blood 26.6 mmol/L 21.0-32.0 [...] Rate - Chemistry sodium, serum 139 mmol/L 629-992 4439/12/11 carbon dioxide, venous blood 25.4 mmol/L 21.0-32.0 [...] 4.3-6.0 Lab Report: /Adult/615, FSH/Adult/470 - Chemistry follicle stimulating hormone, serum [...] 1.02 ng/dL 0.76-1.46 TSH 2.35 m[iU]/mL 0.36-3.74 TSH 1.48 m[iU]/mL 0.36-3.74 thyroxine, serum, free 0.98 ng/dL 0.76-1.46 Lab Report: UADIP W/MICRO, AUTO [...] Report: [place] W/MI[place], [place] [facility] [place] RBC, urine, dipstick Negative Negative [...] semiquantitative Negative Negative Lab Report: Varicella-Zoater Inga IgG,IgM/79043, HEP Be Antibody/556, RUB ... - Serology rubella antibody, serum, IgG 2.88 Encounters Code Encounter Date Provider Facility CPT-70862 Level 4 Est. Patient 09:00:51 PAINTER BOTTOM Vishal Hui MD [facility] CPT-86185 Level 3 Est. Patient 11:37:33 PAINTER BOTTOM Vishal Hui MD [facility] CPT-21112 Level 3 Est. Patient 08:41:09 PAINTER BOTTOM Vishal Hui MD [facility] CPT-38668 Level 4 Est. Patient 10:19:35 PAINTER BOTTOM Vishal Hui MD [facility] CPT-17250 Level 3 Est. Patient 13:35:45 CDT Vishal Hui MD [facility] CPT-46523 Level 4 Est. Patient 10:08:37 CDT Vishal Hui MD [facility] CPT-06735 Level 3 Est. Patient 11:22:10 CDT Vishal Hui MD [facility] CPT-13121 Level 3 Est. Patient 11:03:32 CDT Sahara Rodriguez MD PhD [facility]-96839 Level 3 Est. Patient 09:41:35 CDT Vishal Hui MD [facility] CPT-12583 Level 3 Est. Patient 12:00:41 CDT Neeraj Collins MD [facility] CPT-01237 Level 3 Est. Patient 09:16:24 CDT Vishal Hui MD [facility] CPT-87962 Level 4 Est. Patient 13:59:09 CDT Neeraj Collins MD [facility] CPT-31274 Level 3 Est. Patient 15:19:43 CDT Renzo Thornton DO [facility] CPT-65299 Level 3 Est. Patient 18:10:26 CDT Sahara Rodriguez MD [facility]-28149 Level 3 Est. Patient 14:49:50 CDT Vishal Hui MD [facility] CPT-92700 Level 4 Est. Patient 18:41:46 CDT Neeraj Collins MD [facility] CPT-55843 Level 4 Est. Patient 09:18:38 PAINTER BOTTOM Vishal Hui MD [facility]-57385 Level 3 Est. Patient 14:43:55 PAINTER BOTTOM Vishal Hui MD [facility] CPT-35639 Level 3 Est. Patient 15:26:33 PAINTER BOTTOM Sahara Rodriguez MD PhD [facility] CPT-79412 Level 3 Est. Patient 10:32:14 PAINTER BOTTOM Vishal Hui MD [facility] CPT-77969 Level 3 Est. Patient 15:12:52 PAINTER BOTTOM Vishal Hui MD [facility]-05924 Level 4 Est. Patient 09:19:27 CDT Vishal Hui MD [facility] CPT-05017 Level 3 Est. Patient 15:53:00 CDT Renzo W Norberto [facility] CPT-91561 Level 3 Est. Patient 15:50:30 CDT Renzo Thornton [facility] CPT-90466 Level 3 Est. Patient 16:55:24 CDT Vishal Hui MD [facility] Procedures Code Procedure Name Date Entry Date Standard Description CPT-G0438 Initial Annual Wellness Exam 19:01:01 PAINTER BOTTOM CPT-J3420 Vitamin B12 1000mcg (Cyanocobalamin) 16:57:46 CDT 08/14 CPT-91624 Recombivax HB Injection Suspension 5 MCG/0.5ML 08:37:50 PAINTER BOTTOM CPT-23246 Immunization Single Admin 08:37:50 PAINTER BOTTOM CPT-J3420 Vitamin B12 1000mcg (Cyanocobalamin) 08:32:16 PAINTER BOTTOM 03/11 CPT-14085 Abx/Therapy Injection 08:32:16 PAINTER BOTTOM CPT-44149 Chest 2V Frontal and Lat 11:46:38 PAINTER BOTTOM CPT-24432 Venipuncture Draw Fee 09:12:45 PAINTER BOTTOM CPT-J3420 Vitamin B12 1000mcg (Cyanocobalamin) 08:50:15 PAINTER BOTTOM 02/08 CPT-66232 Abx/Therapy Injection 08:50:15 PAINTER BOTTOM CPT-Cryo Cryotherapy 10:19:35 PAINTER BOTTOM CPT-000 Give Appropriate Flu Vaccine 09:22:16 CDT CPT-J3420 Vitamin B12 1000mcg (Cyanocobalamin) 19:08:57 CDT 01/11 CPT-23404 Abx/Therapy Injection 19:08:57 CDT CPT-J3420 Vitamin B12 1000mcg (Cyanocobalamin) 08:19:08 CDT 12/11 CPT-14670 Abx/Therapy Injection 08:19:08 CDT CPT-J3420 Vitamin B12 1000mcg (Cyanocobalamin) 14:48:00 CDT 11/09 CPT-33930 Abx/Therapy Injection 14:47:59 CDT CPT-J3420 Vitamin B12 1000mcg (Cyanocobalamin) 08:34:04 CDT 10/09 CPT-73371 Abx/Therapy Injection 08:34:04 CDT CPT-J3420 Vitamin B12 1000mcg (Cyanocobalamin) 09:18:52 CDT 09/11 CPT-04099 Abx/Therapy Injection 09:18:52 CDT CPT-J3420 Vitamin B12 1000mcg (Cyanocobalamin) 08:35:44 CDT 09/04 CPT-21713 Abx/Therapy Injection 08:35:44 CDT CPT-12161 Immunization Single Admin 11:07:16 CDT CPT-92745 Hepatitis B adult IM 11:07:16 CDT CPT-J3420 Vitamin B12 1000mcg (Cyanocobalamin) 11:00:49 CDT 08/28 CPT-J1040 Depo Medrol 80 mg (Methyl Prednisolone Acetate) 11:00: 49 CDT CPT-14098 Abx/Therapy Injection 11:00:49 CDT CPT-J1040 Depo Medrol 80 mg (Methyl Prednisolone Acetate) 09:16: 23 CDT CPT-J3420 Vitamin B12 1000mcg (Cyanocobalamin) 08:27:05 CDT 08/20 CPT-47710 Abx/Therapy Injection 08:27:05 CDT CPT-33259 Recombivax HB Injection Suspension 5 MCG/0.5ML 10:00:41 CDT CPT-23886 Administration single or combination vaccine inc oral 10 :00:41 CDT CPT-69659 Sono transvag pelvis non OB uterus ovaries cervix 16:36: 57 CDT CPT-05766 LS spine comp w obliq 09:50:55 PAINTER BOTTOM CPT-58600 Abd compl w upright 09:50:55 PAINTER BOTTOM CPT-J1100 Decadron 4mg (Dexamethasone) 15:51:24 PAINTER BOTTOM CPT-J1030 Depo Medrol 40 mg (Methyl Prednisolone Acetate) 15:51: 24 PAINTER BOTTOM CPT-01184 Abx/Therapy Injection 15:51:24 PAINTER BOTTOM CPT-J1100 Decadron 4mg (Dexamethasone) 15:26:33 PAINTER BOTTOM CPT-J1030 Depo Medrol 40 mg (Methyl Prednisolone Acetate) 15:26: 33 PAINTER BOTTOM CPT-28037 Sono retroperitoneal complete kidneys and bladder 17:15: 30 CDT CPT-07419 Abd compl w upright 16:09:25 CDT CPT-J1100 Decadron 8mg (Dexamethasone) 17:07:57 CDT CPT-36914 Abx/Therapy Injection 17:07:57 CDT CPT-J1100 Decadron 8mg (Dexamethasone) 16:55:24 CDT CPT-76680 Chest 2V Frontal and Lat 16:32:44 CDT
--- OUTSIDE RECORDS SUMMARY | 2016-11-04 21:55 | XMS REPORT | Clinical Summary ---
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 Juliet Kimbrough [employer] JUDGE Dependence on other enabling machines and devices [...] breath Nocturnal hypoxia 799.02 Active Fabiola Johnson [employer]IN[employer] JUDGE Hypoxemia Neck pain 723.1 Resolved Vishal Hui [...] day to help quit smoking VARENICLINE TARTRATE 27752775134 No Longer Active Dipika Burgos MD Active CHANTIX STARTING MONTH EARNEST 0.5 MG X 11 & 1 MG X 42 TABS take as directed 2015 VARENICLINE TARTRATE 34606504835 No Longer Active Dipika Burgos MD Active MONISTAT 7 COMBO PACK WOODROW 100 & 2 MG-% (9GM) VAG KIT 1 applicatorful per vagina q pm x 7 MICONAZOLE NITRATE 56869335418 Active Jillina Frazell [employer]INAL [employer] JUDGE Active FLAGYL 500 MG TAB 1 tablet by mouth bid METRONIDAZOLE 42423800633 Active Jillina Frazell [employer]IN[employer] JUDGE Active TESSALON PERLES 100 MG CAP 1 to 2 tablets by mouth 3 times daily as needed for cough BENZONATATE 28965145696 No Longer Active Jillina Frazell [employer]IN[employer] JUDGE Active ABILIFY MAINTENA 400 MG IM SUSR 400mg injection every 26 days ARIPIPRAZOLE 04183274701 Active Silvia Casey CAMP MANAGER Active IMITREX 50 MG ORAL TABS 0.5 po x 1 PRN Headache. May repeat dose x 1 in 2 hours if needed SUMATRIPTAN SUCCINATE 98127645758 Active Vishal Hui MD Active OXYCODONE HCL ER 10 MG ORAL T12A 1/2 tab by mouth every 4 hours prn OXYCODONE HCL 74125221819 Active Neeraj Collins MD Active METHYLPREDNISOLONE 4 MG ORAL TABS po daily METHYLPREDNISOLONE 95409506004 Active Vishal Hui MD Active LEVOFLOXACIN 500 MG ORAL TABS po daily LEVOFLOXACIN 16649735998 Active Vishal Hui MD Active HYDROCODONE-ACETAMINOPHEN 5-325 MG TABS 1 to 2 four times a day as needed for pain use until can be seen by specialist HYDROCODONE- ACETAMINOPHEN 06911580723 No Longer Active Vishal Hui MD Active PROAIR HFA 108 (90 BASE) MCG/ACT AERS 2 puffs four times a day as needed 2015 ALBUTEROL SULFATE 45269445391 No Longer Active Vishal Hui MD Active PREDNISONE 20 MG TABS 2 daily for 5 days then 1 daily for 5 days PREDNISONE 91367158958 No Longer Active Vishal Hui MD Active ZITHROMAX Z-EARNEST 250 MG TABS 2 today and then 1 daily for 4 days AZITHROMYCIN 12040812062 No Longer Active Vishal Hui MD Active DICLOFENAC SODIUM 50 MG TBEC 1 tablet by mouth four times daily PRN Pain 2015 DICLOFENAC SODIUM 05150645447 Active Vishal Hui MD Active DICLOFENAC POTASSIUM TABS Take 1 tablet twice a day (pt. is not sure of the dose.) DICLOFENAC POTASSIUM TABS 18294169714 No Longer Active Vishal Hui MD Active VERAPAMIL HCL ER 120 MG ORAL CR-TABS Take 1 tablet by mouth twice a day. VERAPAMIL HCL 67773496931 Active Vishal Hui MD Active FLAGYL 500 MG TAB 1 tablet by mouth bid METRONIDAZOLE 22367642430 No Longer Active Vishal Hui MD Active FLUTICASONE PROPIONATE 50 MCG/ACT SUSP 2 sprays each nostril daily before bed. FLUTICASONE PROPIONATE 08582690339 Active Fabiola Johnson APRN Active ADZENYS XR-ODT 6.3 MG ORAL TBED 1 tab po daily for ADHD AMPHETAMINE 59558197376 Active Fabiola Johnson APRN Active BENADRYL 25 MG CAP 4 po at bedtime for insomnia DIPHENHYDRAMINE HCL 08751399163 Active Fabiola Johnson APRN Active KLONOPIN 1 MG ORAL TABS 1 tab po TID CLONAZEPAM 47368409515 Active Fabiola Johnson APRN Active VALIUM 5 MG TAB Take 1-2 tablets daily DIAZEPAM 88677986421 No Longer Active Fabiola Johnson APRN Active METOPROLOL TARTRATE 25 MG ORAL TABS 1/2 tablet twice daily for heart rate and blood pressure METOPROLOL TARTRATE 29872876331 No Longer Active Fabiola Johnson APRN Active MIRALAX ORAL POWD 17GMS DAILY IN WATER POLYETHYLENE GLYCOL 3350 84055616502 Active Vishal Hui MD Active VIIBRYD 10 MG ORAL TABS Take 1 tablet once a day VILAZODONE HCL 51679596279 Active Ahmet Carbajal MD Active MIRALAX PACK 1 po qd PRN Constipation POLYETHYLENE GLYCOL 3350 60655098275 No Longer Active Ahmet Carbajal MD Active MINIPRESS 2 MG CAPS 4 cap po at night PRAZOSIN HCL 38030779360 No Longer Active Ahmet Carbajal MD Active PIROXICAM 20 MG CAPS 1 cap po qd PRN Pain PIROXICAM 68639289247 No Longer Active Ahmet Carbajal MD Active TRAMADOL HCL 50 MG TABS 1-2 po TID PRN Pain TRAMADOL HCL 15662316810 No Longer Active Ahmet Carbajal MD Active METOPROLOL TARTRATE 50 MG TAB 1 po bid METOPROLOL TARTRATE 40620636309 No Longer Active Ahmet Carbajal MD Active ABILIFY 15 MG ORAL TABS 1 tab daily ARIPIPRAZOLE 99547674970 No Longer Active Ahmet Carbajal MD Active PROZAC 20 MG ORAL CAPS 1 tab daily FLUOXETINE HCL 30624973032 No Longer Active Ahmet Carbajal MD Active AMBIEN 5 MG ORAL TABS 1 tab at bedtime ZOLPIDEM TARTRATE 10763376101 No Longer Active Ahmet Carbajal MD Active PREDNISONE 20 MG TAB 2 tabs daily for 4 days, 1 tab daily for 4 days, 1/2 tab daily for 4 days PREDNISONE 96072209666 No Longer Active Ahmet Carbajal MD Active KEFLEX 500 MG CAP 1 po TID x 10 days CEPHALEXIN 11627155290 No Longer Active Vishal Hui MD Active TOPAMAX 50 MG ORAL TABS 1 tab twice daily TOPIRAMATE 81886926878 Active Vishal Hui MD Active SAPHRIS 5 MG SUBL 1 po bid ASENAPINE MALEATE 44808673355 No Longer Active Luigi Martínez APRN Active LATUDA 80 MG TABS Take one by mouth daily LURASIDONE HCL 27163780670 No Longer Active Luigi Martínez APRN Active AMLODIPINE BESYLATE 5 MG TABS 1 tablet by mouth daily AMLODIPINE BESYLATE 50794664707 No Longer Active Luigi Martínez APRN Active AMITRIPTYLINE HCL 100 MG TAB one at hs AMITRIPTYLINE HCL 85168989069 No Longer Active Vishal Hui MD Active TRAZODONE HCL 100 MG TAB take 1 at bedtime TRAZODONE HCL 00929555139 No Longer Active Vishal Hui MD Active VYVANSE 40 MG CAPS 1 daily, LISDEXAMFETAMINE DIMESYLATE 22756445479 No Longer Active Vishal Hui MD Active IBUPROFEN 600 MG TAB 1 po TID PRN IBUPROFEN 05539125300 No Longer Active Vishal Hui MD Active PROZAC 20 MG CAP Take one by mouth daily FLUOXETINE HCL 24006295375 No Longer Active Vishal Hui MD Active ZOFRAN 4 MG TABS 1 po q6hr PRN Nausea ONDANSETRON HCL Active Vishal Hui MD Active BACTRIM DS 800-160 MG TABS 1 pill by mouth twice daily SULFAMETHOXAZOLE-TRIMETHOPRIM 77810602375 No Longer Active Sahara Rodriguez MD PhD Active DIFLUCAN 150 MG TAB 1 tablet by mouth daily FLUCONAZOLE 21402545615 No Longer Active Vishal Hui MD Active TIZANIDINE HCL 4 MG TABS 1 po q6hr PRN Muscle Spasm/Back Pain TIZANIDINE HCL 38855206836 Active Vishal Hui MD Active CLINDAMYCIN HCL 150 MG CAPS 1 four times a day CLINDAMYCIN HCL 69684221880 No Longer Active Neeraj Collins MD Active KEFLEX 500 MG ORAL CAPS 1 cap QID by mouth CEPHALEXIN 59548298417 No Longer Active Neeraj Collins MD Active DIFLUCAN 150 MG TABS 1 pill every other day x 2 doses FLUCONAZOLE 32436489761 No Longer Active Sahara Rodriguez MD PhD Active MELATONIN 3 MG CAPS 2 po q hs MELATONIN 21354190490 No Longer Active Sahara Rodriguez MD PhD Active MULTIVITAMINS CAPS Take one by mouth daily MULTIPLE VITAMIN 53939343279 No Longer Active Sahara Rodriguez MD PhD Active BACTRIM DS 800-160 MG TAB 1 tab by mouth twice daily TRIMETHOPRIM-SULFAMETHOXAZOLE 84283775803 No Longer Active Sahara Rodriguez MD PhD Active [facility] PROBIOTIC ORAL CHEW 2 daily po PROBIOTIC PRODUCT 12107695595 No Longer Active Sahara Rodriguez MD PhD Active BACTRIM DS 800-160 MG TABS 1 po BID x 7 days SULFAMETHOXAZOLE-TRIMETHOPRIM 14135524879 No Longer Active Vishal Hui MD Active CHANTIX STARTING MONTH EARNEST 0.5 MG X 11 & 1 MG X 42 TABS 0.5mg daily for 3 days , then 0.5mg BID for 4 days, then 1mg BID VARENICLINE TARTRATE 07810019105 No Longer Active TAMARA Gray Active VERAPAMIL HCL CR 120 MG TAB CR 1 po bid VERAPAMIL HCL 01181829198 No Longer Active Vishal Hui MD Active METOPROLOL SUCCINATE 50 MG TB24 1 tablet by mouth daily METOPROLOL SUCCINATE 33979531714 No Longer Active Vishal Hui MD Active SAPHRIS 10 MG SUBL 1 tab po bid ASENAPINE MALEATE 63010176706 No Longer Active Vishal Hui MD Active LISINOPRIL 20 MG TABS 1 tab po qd LISINOPRIL 92058215666 No Longer Active Vishal Hui MD Active LATUDA 20 MG TABS Take one by mouth daily LURASIDONE HCL 26205026931 No Longer Active Vishal Hui MD Active TRAZODONE HCL 50 MG TABS 1/2 tab po qd prn for anxiety TRAZODONE HCL 73674611927 No Longer Active Vishal Hui MD Active OMEPRAZOLE 20 MG TBEC 1 po q a.m. 30min prior to first food intake OMEPRAZOLE 83780443382 Active Vishal Hui MD Active RANITIDINE HCL 150 MG CAPS 1 twice a day RANITIDINE HCL 79194625179 Active Jillina Frazell [employer]IN[employer] JUDGE Active LINZESS 290 MCG CAPS Take one by mouth daily LINACLOTIDE 79000928550 No Longer Active Vishal Hui MD Active SAPHRIS 5 MG SUBL 1 tab po qd ASENAPINE MALEATE 27054659803 No Longer Active Vishal Hui MD Active ZALEPLON 10 MG CAPS 1 cap po every other night ZALEPLON 11689292636 No Longer Active Vishal Hui MD Active LYRICA 50 MG CAPS 1 tab po TID PREGABALIN 39494048438 No Longer Active Vishal Hui MD Active LORATADINE 10 MG TABS 1 tab po qd LORATADINE 41361933292 No Longer Active Vishal Hui MD Active VERAPAMIL HCL ER 180 MG CR-TABS 1 tab po bid VERAPAMIL HCL 79124457590 No Longer Active Vishal Hui MD Active MIRALAX POWD 1 capfull once daily POLYETHYLENE GLYCOL 3350 61889872363 No Longer Active Vishal Hui MD Active PREDNISONE 20 MG TABS 1 tab po qd PREDNISONE 35905712612 No Longer Active Renzo Thornton DO Active LEVOFLOXACIN 500 MG TABS 1 tab po qd LEVOFLOXACIN 82718206570 No Longer Active Renzo Thornton DO Active BUSPIRONE HCL 15 MG TABS 1 tab po TID BUSPIRONE HCL 37418762251 No Longer Active Renzo Thornton DO Active BENZTROPINE MESYLATE 1 MG TABS 1 tab po qd BENZTROPINE MESYLATE 33684022407 No Longer Active Renzo Thornton DO Active ATENOLOL 25 MG TABS 1 tab po qd ATENOLOL 87372413821 No Longer Active Renzo Thornton DO Active ESCITALOPRAM OXALATE 20 MG TABS 1 tab po qd ESCITALOPRAM OXALATE 34735964883 No Longer Active Renzo Thornton DO Active ADVAIR DISKUS 250-50 MCG/DOSE AEPB 1 puff BID FLUTICASONE-SALMETEROL 51580457230 No Longer Active Renzo Thornton DO Active PREDNISONE 20 MG TAB 2 tabs daily for 3 days, 1 tab daily for 3 days, 1/2 tab daily for 2 days PREDNISONE 45327884581 No Longer Active Vishal Hui MD Active CEFDINIR 300 MG CAPS by mouth twice a day CEFDINIR 69658020350 No Longer Active Vishal Hui MD Active LANSOPRAZOLE 30 MG CPDR 1 cap po qd LANSOPRAZOLE 00382204621 No Longer Active Vishal Hui MD Active BACLOFEN 20 MG TABS 1 tab po tid BACLOFEN 37204591176 No Longer Active Vishal Hui MD Active ADVAIR DISKUS 250-50 MCG/DOSE AEPB 1 puff BID ADVAIR DISKUS 250-50 MCG/DOSE AEPB FLUTICASONE-SALMETEROL Inactive ESCITALOPRAM OXALATE 20 MG TABS 1 tab po qd ESCITALOPRAM OXALATE 20 MG TABS 522639 ESCITALOPRAM OXALATE Inactive ATENOLOL 25 MG TABS 1 tab po qd ATENOLOL 25 MG TABS 853568 ATENOLOL Inactive BENZTROPINE MESYLATE 1 MG TABS 1 tab po qd BENZTROPINE MESYLATE 1 MG TABS 531883 BENZTROPINE MESYLATE Inactive BUSPIRONE HCL 15 MG TABS 1 tab po TID BUSPIRONE HCL 15 MG TABS 844000 BUSPIRONE HCL Inactive LEVOFLOXACIN 500 MG TABS 1 tab po qd LEVOFLOXACIN 500 MG TABS 690888 LEVOFLOXACIN Inactive PREDNISONE 20 MG TABS 1 tab po qd PREDNISONE 20 MG TABS 025286 PREDNISONE Inactive MIRALAX POWD 1 capfull once daily MIRALAX POWD 970800 POLYETHYLENE GLYCOL 3350 Inactive VERAPAMIL HCL ER 180 MG CR-TABS 1 tab po bid VERAPAMIL HCL ER 180 MG CR-TABS VERAPAMIL HCL Inactive LORATADINE 10 MG TABS 1 tab po qd LORATADINE 10 MG TABS 202131 LORATADINE Inactive LYRICA 50 MG CAPS 1 tab po TID LYRICA 50 MG CAPS PREGABALIN Inactive ZALEPLON 10 MG CAPS 1 cap po every other night ZALEPLON 10 MG CAPS 630285 ZALEPLON Inactive SAPHRIS 5 MG SUBL 1 tab po qd SAPHRIS 5 MG SUBL ASENAPINE MALEATE Inactive TRAZODONE HCL 50 MG TABS 1/2 tab po qd prn for anxiety TRAZODONE HCL 50 MG TABS 521870 TRAZODONE HCL Inactive LATUDA 20 MG TABS Take one by mouth daily LATUDA 20 MG TABS LURASIDONE HCL Inactive LISINOPRIL 20 MG TABS 1 tab po qd LISINOPRIL 20 MG TABS 984364 LISINOPRIL Inactive SAPHRIS 10 MG SUBL 1 [...] twice daily BACTRIM DS 800-160 MG TAB 777997 TRIMETHOPRIM-SULFAMETHOXAZOLE Inactive MULTIVITAMINS CAPS Take one by mouth daily MULTIVITAMINS CAPS MULTIPLE VITAMIN Inactive MELATONIN 3 MG CAPS 2 po q hs MELATONIN 3 MG CAPS 384870 MELATONIN Inactive KEFLEX 500 MG ORAL CAPS 1 cap QID by mouth KEFLEX 500 MG ORAL CAPS 541522 CEPHALEXIN Inactive CLINDAMYCIN HCL 150 MG CAPS 1 four times a day CLINDAMYCIN HCL 150 MG CAPS 622828 CLINDAMYCIN HCL Inactive DIFLUCAN 150 MG TAB 1 tablet by mouth daily DIFLUCAN 150 MG TAB 180385 FLUCONAZOLE Inactive PROZAC 20 MG CAP Take one by mouth daily PROZAC 20 MG CAP 467004 FLUOXETINE HCL Inactive IBUPROFEN 600 MG TAB 1 po TID PRN IBUPROFEN 600 MG TAB 006681 IBUPROFEN Inactive VYVANSE 40 MG CAPS 1 daily, VYVANSE 40 MG CAPS LISDEXAMFETAMINE DIMESYLATE Inactive TRAZODONE HCL 100 MG TAB take 1 at bedtime TRAZODONE HCL 100 MG TAB 234713 TRAZODONE HCL Inactive AMITRIPTYLINE HCL 100 MG TAB one at hs AMITRIPTYLINE HCL 100 MG TAB 741141 AMITRIPTYLINE HCL Inactive AMLODIPINE BESYLATE 5 MG TABS 1 tablet by mouth daily AMLODIPINE BESYLATE 5 MG TABS 600687 AMLODIPINE BESYLATE Inactive LATUDA 80 MG TABS Take one by mouth daily LATUDA 80 MG TABS LURASIDONE HCL Inactive SAPHRIS 5 MG SUBL 1 po bid SAPHRIS 5 MG SUBL ASENAPINE MALEATE Inactive PREDNISONE 20 MG TAB 2 tabs daily for 4 days, 1 tab daily for 4 days, 1/2 tab daily for 4 days PREDNISONE 20 MG TAB 210582 PREDNISONE Inactive AMBIEN 5 MG ORAL TABS 1 tab at bedtime AMBIEN 5 MG ORAL TABS 135360 ZOLPIDEM TARTRATE Inactive PROZAC 20 MG ORAL CAPS 1 tab daily PROZAC 20 MG ORAL CAPS 362404 FLUOXETINE HCL Inactive ABILIFY 15 MG ORAL TABS 1 tab daily ABILIFY 15 MG ORAL TABS 131632 ARIPIPRAZOLE Inactive METOPROLOL TARTRATE 50 MG TAB 1 po bid METOPROLOL TARTRATE 50 MG TAB 839412 METOPROLOL TARTRATE Inactive TRAMADOL HCL 50 MG TABS 1-2 po TID PRN Pain TRAMADOL HCL 50 MG TABS 196304 TRAMADOL HCL Inactive PIROXICAM 20 MG CAPS 1 cap po qd PRN Pain PIROXICAM 20 MG CAPS 100972 PIROXICAM Inactive MINIPRESS 2 MG CAPS 4 cap po at night MINIPRESS 2 MG CAPS 204907 PRAZOSIN HCL Inactive MIRALAX PACK 1 po qd PRN Constipation MIRALAX PACK 386474 POLYETHYLENE GLYCOL 3350 Inactive METOPROLOL TARTRATE 25 MG ORAL TABS 1/2 tablet twice daily for heart rate and blood pressure METOPROLOL TARTRATE 25 MG ORAL TABS 001520 METOPROLOL TARTRATE Inactive VALIUM 5 MG TAB Take 1-2 tablets daily VALIUM 5 MG TAB 095004 DIAZEPAM Inactive FLAGYL 500 MG TAB 1 tablet by mouth bid FLAGYL 500 MG TAB 889490 METRONIDAZOLE Inactive DICLOFENAC POTASSIUM TABS Take 1 tablet twice a day (pt. is not sure of the dose.) DICLOFENAC POTASSIUM TABS DICLOFENAC POTASSIUM TABS Inactive ZITHROMAX Z-EARNEST 250 MG TABS 2 today and then 1 daily for 4 days ZITHROMAX Z-EARNEST 250 MG TABS 1117916 AZITHROMYCIN Inactive PREDNISONE 20 MG TABS 2 daily for 5 days then 1 daily for 5 days PREDNISONE 20 MG TABS 655090 PREDNISONE Inactive PROAIR HFA 108 (90 BASE) MCG/ACT AERS 2 puffs four times a day as needed 2015 PROAIR HFA 108 (90 BASE) MCG/ACT AERS ALBUTEROL SULFATE Inactive HYDROCODONE-ACETAMINOPHEN 5-325 MG TABS 1 to 2 four times a day as needed for pain use until can be seen by specialist HYDROCODONE- ACETAMINOPHEN 5-325 MG TABS 718650 HYDROCODONE-ACETAMINOPHEN Inactive TESSALON PERLES 100 MG CAP 1 to 2 tablets by mouth 3 times daily as needed for cough TESSALON PERLES 100 MG CAP 557627 BENZONATATE Inactive CHANTIX STARTING MONTH EARNEST 0.5 [...] twice a day CEFDINIR 300 MG CAPS 723000 CEFDINIR Inactive PREDNISONE 20 MG TAB 2 tabs daily for 3 days, 1 tab daily for 3 days, 1/2 tab daily for 2 days PREDNISONE 20 MG TAB 846644 PREDNISONE Inactive BACTRIM DS 800-160 MG TABS 1 po BID x 7 days BACTRIM DS 800-160 MG TABS 19820521 SULFAMETHOXAZOLE-TRIMETHOPRIM Inactive DIFLUCAN 150 MG TABS 1 pill every other day x 2 doses DIFLUCAN 150 MG TABS 763360 FLUCONAZOLE Inactive BACTRIM DS 800-160 MG TABS 1 pill by mouth twice daily BACTRIM DS 800-160 MG TABS 19820521 SULFAMETHOXAZOLE-TRIMETHOPRIM Inactive KEFLEX 500 MG CAP 1 po TID x 10 days KEFLEX 500 MG CAP 630634 CEPHALEXIN Inactive Advance Directives Directive Description Start [...] % 11.6-14.8 platelet count 394 10^3/MM^3 10*3/mm3 172-263 1135/01/11 leukocyte count, blood 13.8 10^3/MM^3 10*3/mm3 4.6-10.2 [...] Panel - Chemistry sodium, serum 139 mmol/L 178-824 3093/12/03 carbon dioxide, venous blood 28.5 mmol/L 21.0-32.0 [...] 5.5 % 4.3-6.0 cholesterol, serum 159 mg/dL 681-784 2564/12/03 triglyceride, serum, fasting 118 mg/dL 30-200 HDL [...] 362 10^3/MM^3 10*3/mm3 142-424 Lab Report: Chlamydia/GC APTIMA/[id number] - Lab chlamydia DNA probe NOT DETECTED NOT DETECTED Lab Report: Chlamydia/GC APTIMA/[id number] - Microbiology Neisseria gonorrhoeae DNA probe NOT DETECTED NOT DETECTED Lab Report: Comp. Metabolic Panel - Chemistry sodium, serum 140 mmol/L 478-922 4089/08/08 carbon dioxide, venous blood 33.7 mmol/L 21.0-32.0 potassium, serum 5.0 mmol/L 3.5-5.2 chloride, serum 103 mmol/L 98-107 blood glucose 80 mg/dL 65-110 urea nitrogen, blood 13 mg/dL 7-18 creatinine, serum 0.88 mg/dL 0.55-1.30 alanine aminotransferase (SGPT), serum 54 U/L 12-78 aspartate aminotransferase (SGOT), serum 29 U/L 15-37 calcium, serum 9.7 mg/dL 8.5-10.1 bilirubin, serum, total 0.30 mg/dL 0.00-1.00 sodium, serum 139 mmol/L 742-239 6489/12/22 carbon dioxide, venous blood 26.8 mmol/L 21.0-32.0 potassium, serum 4.2 mmol/L 3.5-5.2 chloride, serum 103 mmol/L 98-107 blood glucose 115 mg/dL 65-110 urea nitrogen, blood 20 mg/dL 7-18 creatinine, serum 0.90 mg/dL 0.55-1.30 alanine aminotransferase (SGPT), serum 38 U/L aspartate aminotransferase (SGOT), serum 19 U/L 15-37 calcium, serum 8.6 mg/dL 8.5-10.1 bilirubin, serum, total 0.30 mg/dL 0.00-1.00 sodium, serum 139 mmol/L 299-834 4981/01/11 carbon dioxide, venous blood 26.6 mmol/L 21.0-32.0 potassium, serum 4.1 mmol/L 3.5-5.2 chloride, serum 100 mmol/L 98-107 blood glucose 86 mg/dL 65-110 urea nitrogen, blood 16 mg/dL 7-18 creatinine, serum 1.00 mg/dL 0.55-1.30 alanine aminotransferase (SGPT), serum 48 U/L aspartate aminotransferase (SGOT), serum 17 U/L 15-37 calcium, serum 9.1 mg/dL 8.5-10.1 bilirubin, serum, total 0.40 mg/dL 0.00-1.00 sodium, serum 142 mmol/L 630-999 7374/06/08 carbon dioxide, venous blood 27.6 mmol/L 21.0-32.0 [...] Rate - Chemistry sodium, serum 139 mmol/L 027-186 7719/12/11 carbon dioxide, venous blood 25.4 mmol/L 21.0-32.0 [...] mg/dL Encounters Code Encounter Date Provider Facility CPT-25102 Level 3 Est. Patient 13:59:59 CDT Luigi Martínez APRN [facility] CPT-23729 Level 3 Est. Patient 18:18:53 CDT Neeraj Collins MD [facility] CPT-91598 Level 3 Est. Patient 15:50:44 CDT Vishal Hui MD [facility] CPT-13000 Level 3 Est. Patient 11:36:17 CDT Ahmet Carbajal MD [facility] CPT-79809 Level 3 Est. Patient 13:29:16 CDT Vishal Hui MD [facility] CPT-11685 Level 3 Est. Patient 14:27:52 CDT Neeraj Collins MD [facility] CPT-49227 Level 3 Est. Patient 08:56:03 CDT Luigi Martínez [facility] CPT-22039 Level 4 Est. Patient 12:11:48 CDT Fabiola Johnson [facility] CPT-90829 Level 3 New Patient 16:53:37 CDT Albert Caldera MD [facility] CPT-20755 Level 3 Est. Patient 11:25:49 CDT Renzo Thornton DO [facility] CPT-73536 Level 3 Est. Patient 15:22:01 CDT Ahmet Carbajal MD [facility] CPT-32039 Level 4 Est. Patient 09:00:51 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 Vishal Hui MD [facility] CPT-76079 Level 3 Est. Patient 11:37:33 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 Vishal Hui MD [facility] CPT-41949 Level 3 Est. Patient 08:41:09 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 Vishal Hui MD [facility] CPT-93332 Level 4 Est. Patient 10:19:35 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 Vishal Hui MD [facility] CPT-52396 Level 3 Est. Patient 13:35:45 CDT Vishal Hui MD [facility] CPT-36181 Level 4 Est. Patient 10:08:37 CDT Vishal Hui MD [facility] CPT-68781 Level 3 Est. Patient 11:22:10 CDT Vishal Hui MD [facility] CPT-25539 Level 3 Est. Patient 11:03:32 CDT Sahara Rodriguez MD PhD [facility] CPT-33622 Level 3 Est. Patient 09:41:35 CDT Vishal Hui MD [facility] CPT-74955 Level 3 Est. Patient 12:00:41 CDT Neeraj Collins MD [facility] CPT-11378 Level 3 Est. Patient 09:16:24 CDT Vishal Hui MD [facility] CPT-52602 Level 4 Est. Patient 13:59:09 CDT Neeraj Collins MD [facility] CPT-74381 Level 3 Est. Patient 15:19:43 CDT Renzo Thornton DO [facility] CPT-40027 Level 3 Est. Patient 18:10:26 CDT Sahara Rodriguez MD [facility] [place]-[address] Level 3 Est. Patient 14:49:50 CDT Vishal Hui MD [facility] CPT-29516 Level 4 Est. Patient 18:41:46 CDT Neeraj Collins MD [facility] CPT-19645 Level 4 Est. Patient 09:18:38 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 Vishal Hui MD [facility] CPT-99096 Level 3 Est. Patient 14:43:55 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 Vishal Hui MD [facility] CPT-38682 Level 3 Est. Patient 15:26:33 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 Sahara Rodriguez MD PhD [facility] CPT-84724 Level 3 Est. Patient 10:32:14 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 Vishal Hui MD [facility] CPT-56258 Level 3 Est. Patient 15:12:52 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 Vishal Hui MD [facility] CPT-53458 Level 4 Est. Patient 09:19:27 CDT Vishal Hui MD [facility] CPT-22453 Level 3 Est. Patient 15:53:00 CDT Renzo Thornton [facility] CPT-09876 Level 3 Est. Patient 15:50:30 CDT Renzo Thornton [facility] CPT-81500 Level 3 Est. Patient 16:55:24 CDT Vishal Hui MD [facility] Procedures Code Procedure Name Date Entry Date Standard Description CPT-34884 Abx/Therapy Injection 17:34:30 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 CPT-26560 Nexplanon Removal with Reinsertion 14:09:32 CDT CPT-J7307 Nexplanon (Implant) 14:09:32 CDT CPT-OV Office Visit 14:09:32 CDT CPT-65714 UA w micro - LAB USE ONLY 16:21:13 CDT CPT-90087 Wet Mount - LAB USE ONLY 16:21:13 CDT CPT-05928 First Vx - Ix admin for Medicare patients 14:37:47 CDT CPT-81996 Fluzone Preservative Free Intramuscular Suspension 14:37 :47 CDT CPT-52401 Abx/Therapy Injection 13:54:22 CDT CPT-23575 Abx/Therapy Injection 08:47:09 CDT CPT-29804 Abx/Therapy Injection 13:29:56 CDT CPT-39489 Abx/Therapy Injection 08:36:16 CDT CPT-75806 Wet Mount - LAB USE ONLY 17:44:58 CDT CPT-15171 UA w micro - LAB USE ONLY 17:44:58 CDT CPT-18086 CMP - LAB USE ONLY 17:44:58 CDT CPT-29039 Venipuncture Draw Fee 17:44:58 CDT CPT-36116 Cervical Min 4V - XRAY USE ONLY 09:01:40 CDT CPT-22666 Chest 2V Frontal and Lat - XRAY USE ONLY 11:06:31 CDT CPT-12136 EKG Trac and Interp - XRAY USE ONLY 11:31:43 CDT 08/26 CPT-J3420 Vitamin B12 1000mcg (Cyanocobalamin) 08:10:26 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 04/12 CPT-88015 Abx/Therapy Injection 08:10:26 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 CPT-G0438 Initial Annual Wellness Exam 19:01:01 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 CPT-J3420 Vitamin B12 1000mcg (Cyanocobalamin) 16:57:46 CDT 08/14 CPT-91122 Recombivax HB Injection Suspension 5 MCG/0.5ML 08:37:50 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 CPT-83592 Immunization Single Admin 08:37:50 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 CPT-J3420 Vitamin B12 1000mcg (Cyanocobalamin) 08:32:16 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 03/11 CPT-82228 Abx/Therapy Injection 08:32:16 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 CPT-84658 Chest 2V Frontal and Lat 11:46:38 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 CPT-87843 Venipuncture Draw Fee 09:12:45 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 CPT-J3420 Vitamin B12 1000mcg (Cyanocobalamin) 08:50:15 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 02/08 CPT-69353 Abx/Therapy Injection 08:50:15 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 CPT-Cryo Cryotherapy 10:19:35 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 CPT-000 Give Appropriate Flu Vaccine 09:22:16 CDT CPT-J3420 Vitamin B12 1000mcg (Cyanocobalamin) 19:08:57 CDT 01/11 CPT-33795 Abx/Therapy Injection 19:08:57 CDT CPT-J3420 Vitamin B12 1000mcg (Cyanocobalamin) 08:19:08 CDT 12/11 CPT-64826 Abx/Therapy Injection 08:19:08 CDT CPT-J3420 Vitamin B12 1000mcg (Cyanocobalamin) 14:48:00 CDT 11/09 CPT-23548 Abx/Therapy Injection 14:47:59 CDT CPT-J3420 Vitamin B12 1000mcg (Cyanocobalamin) 08:34:04 CDT 10/09 CPT-63587 Abx/Therapy Injection 08:34:04 CDT CPT-J3420 Vitamin B12 1000mcg (Cyanocobalamin) 09:18:52 CDT 09/11 CPT-65149 Abx/Therapy Injection 09:18:52 CDT CPT-J3420 Vitamin B12 1000mcg (Cyanocobalamin) 08:35:44 CDT 09/04 CPT-33612 Abx/Therapy Injection 08:35:44 CDT CPT-57306 Immunization Single Admin 11:07:16 CDT CPT-87776 Hepatitis B adult IM 11:07:16 CDT CPT-J3420 Vitamin B12 1000mcg (Cyanocobalamin) 11:00:49 CDT 08/28 CPT-J1040 Depo Medrol 80 mg (Methyl Prednisolone Acetate) 11:00: 49 CDT CPT-79032 Abx/Therapy Injection 11:00:49 CDT CPT-J1040 Depo Medrol 80 mg (Methyl Prednisolone Acetate) 09:16: 23 CDT CPT-J3420 Vitamin B12 1000mcg (Cyanocobalamin) 08:27:05 CDT 08/20 CPT-99335 Abx/Therapy Injection 08:27:05 CDT CPT-14044 Recombivax HB Injection Suspension 5 MCG/0.5ML 10:00:41 CDT CPT-66312 Administration single or combination vaccine inc oral 10 :00:41 CDT CPT-48597 Sono transvag pelvis non OB uterus ovaries cervix 16:36: 57 CDT CPT-54699 LS spine comp w obliq 09:50:55 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 CPT-70426 Abd compl w upright 09:50:55 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 CPT-J1100 Decadron 4mg (Dexamethasone) 15:51:24 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 CPT-J1030 Depo Medrol 40 mg (Methyl Prednisolone Acetate) 15:51: 24 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 CPT-20313 Abx/Therapy Injection 15:51:24 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 CPT-J1100 Decadron 4mg (Dexamethasone) 15:26:33 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 CPT-J1030 Depo Medrol 40 mg (Methyl Prednisolone Acetate) 15:26: 33 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 CPT-23909 Sono retroperitoneal complete kidneys and bladder 17:15: 30 CDT CPT-84026 Abd compl w upright 16:09:25 CDT CPT-J1100 Decadron 8mg (Dexamethasone) 17:07:57 CDT CPT-24401 Abx/Therapy Injection 17:07:57 CDT CPT-J1100 Decadron 8mg (Dexamethasone) 16:55:24 CDT CPT-60106 Chest 2V Frontal and Lat 16:32:44 CDT
--- OUTSIDE RECORDS SUMMARY | 2016-11-04 21:58 | XMS REPORT | Clinical Summary ---
Author Author Admin, [employer] Organization [facility] [employer] Address Unknown Phone Unavailable Allergies, Adverse Reactions, [...] 278.1 Active Albert Caldera MD Localized adiposity Pneumonia, organism unspecified ICD-486 Inactive Vishal Hui [...] blood chemistry ICD-790.6 Inactive Vishal Hui MD Anxiety Disorder ICD-300.00 Inactive Vishal Hui MD Boils, recurrent ICD-680.9 [...] 17GMS DAILY IN WATER POLYETHYLENE GLYCOL 3350 89512342844 Active Vishal Hui MD Active METOPROLOL TARTRATE 25 MG ORAL TABS 1/2 tablet twice daily for heart rate and blood pressure METOPROLOL TARTRATE 20492640180 Active Renzo Thornton DO Active VALIUM 5 MG TAB Take 1-2 tablets daily DIAZEPAM 53030179095 Active Ahmet Carbajal MD Active VIIBRYD 10 MG ORAL TABS Take 1 tablet once a day VILAZODONE HCL 64056096058 Active Ahmet Carbajal MD Active DICLOFENAC POTASSIUM TABS Take 1 tablet twice a day (pt. is not sure of the dose.) DICLOFENAC POTASSIUM TABS 79838915749 Active Ahmet Carbajal MD Active MIRALAX PACK 1 po qd PRN Constipation POLYETHYLENE GLYCOL 3350 99918921202 No Longer Active Ahmet Carbajal MD Active MINIPRESS 2 MG CAPS 4 cap po at night PRAZOSIN HCL 72946762905 No Longer Active Ahmet Carbajal MD Active PIROXICAM 20 MG CAPS 1 cap po qd PRN Pain PIROXICAM 35652224495 No Longer Active Ahmet Carbajal MD Active TRAMADOL HCL 50 MG TABS 1-2 po TID PRN Pain TRAMADOL HCL 23953744393 No Longer Active Ahmet Carbajal MD Active METOPROLOL TARTRATE 50 MG TAB 1 po bid METOPROLOL TARTRATE 84019283061 No Longer Active Ahmet Carbajal MD Active ABILIFY 15 MG ORAL TABS 1 tab daily ARIPIPRAZOLE 51683052692 No Longer Active Ahmet Carbajal MD Active PROZAC 20 MG ORAL CAPS 1 tab daily FLUOXETINE HCL 09231658439 No Longer Active Ahmet Cabrajal MD Active AMBIEN 5 MG ORAL TABS 1 tab at bedtime ZOLPIDEM TARTRATE 30419747764 No Longer Active Ahmet Carbajal MD Active PREDNISONE 20 MG TAB 2 tabs daily for 4 days, 1 tab daily for 4 days, 1/2 tab daily for 4 days PREDNISONE 89308637275 No Longer Active Ahmet Carbajal MD Active KEFLEX 500 MG CAP 1 po TID x 10 days CEPHALEXIN 97477575126 No Longer Active Vishal Hui MD Active ABILIFY MAINTENA 400 MG IM SUSR Injection once per month ARIPIPRAZOLE 23354742055 Active Juliet Luis E [employer] Active IMITREX 50 MG ORAL TABS 1/2 tab every 6 hours prn SUMATRIPTAN SUCCINATE 06267936084 Active Jillina Frazell [employer] Active TOPAMAX 50 MG ORAL TABS 1 tab twice daily TOPIRAMATE 27420331237 Active Vishal Hui MD Active SAPHRIS 5 MG SUBL 1 po bid ASENAPINE MALEATE 46755283576 No Longer Active Jillina Mauricio NORIEGA Active LATUDA 80 MG TABS Take one by mouth daily LURASIDONE HCL 60793622380 No Longer Active Pacollina Mauricio NORIEGA Active AMLODIPINE BESYLATE 5 MG TABS 1 tablet by mouth daily AMLODIPINE BESYLATE 78911016130 No Longer Active Pacollina Mauricio NORIEGA Active AMITRIPTYLINE HCL 100 MG TAB one at hs AMITRIPTYLINE HCL 73556698171 No Longer Active Vishal Hui MD Active TRAZODONE HCL 100 MG TAB take 1 at bedtime TRAZODONE HCL 16917282695 No Longer Active Vishal Hui MD Active VYVANSE 40 MG CAPS 1 daily, LISDEXAMFETAMINE DIMESYLATE 36259808092 No Longer Active Vishal Hui MD Active IBUPROFEN 600 MG TAB 1 po TID PRN IBUPROFEN 61639060079 No Longer Active Vishal Hui MD Active PROZAC 20 MG CAP Take one by mouth daily FLUOXETINE HCL 82257898936 No Longer Active Vishal Hui MD Active ZOFRAN 4 MG TABS 1 po q6hr PRN Nausea ONDANSETRON HCL Active Vishal Hui MD Active BACTRIM DS 800-160 MG TABS 1 pill by mouth twice daily SULFAMETHOXAZOLE-TRIMETHOPRIM 83555873762 No Longer Active Sahara Rodriguez MD PhD Active DIFLUCAN 150 MG TAB 1 tablet by mouth daily FLUCONAZOLE 67424262034 No Longer Active Vishal Hui MD Active TIZANIDINE HCL 4 MG TABS 1 po q6hr PRN Muscle Spasm/Back Pain TIZANIDINE HCL 49504657806 Active Vishal Hui MD Active CLINDAMYCIN HCL 150 MG CAPS 1 four times a day CLINDAMYCIN HCL 68116103050 No Longer Active Neeraj Collins MD Active KEFLEX 500 MG ORAL CAPS 1 cap QID by mouth CEPHALEXIN 46852737062 No Longer Active Neeraj Collins MD Active DIFLUCAN 150 MG TABS 1 pill every other day x 2 doses FLUCONAZOLE 75971042605 No Longer Active Sahara Rodriguez MD PhD Active MELATONIN 3 MG CAPS 2 po q hs MELATONIN 33393022322 No Longer Active Sahara Rodriguez MD PhD Active MULTIVITAMINS CAPS Take one by mouth daily MULTIPLE VITAMIN 72779899156 No Longer Active Sahara Rodriguez MD PhD Active BACTRIM DS 800-160 MG TAB 1 tab by mouth twice daily TRIMETHOPRIM-SULFAMETHOXAZOLE 90556156933 No Longer Active Sahara Rodriguez MD PhD Active [facility] PROBIOTIC ORAL CHEW 2 daily po PROBIOTIC PRODUCT 04339401698 No Longer Active Sahara Rodriguez MD PhD Active BACTRIM DS 800-160 MG TABS 1 po BID x 7 days SULFAMETHOXAZOLE-TRIMETHOPRIM 19356456260 No Longer Active Vishal Hui MD Active CHANTIX STARTING MONTH EARNEST 0.5 MG X 11 & 1 MG X 42 TABS 0.5mg daily for 3 days , then 0.5mg BID for 4 days, then 1mg BID VARENICLINE TARTRATE 56323805177 No Longer Active Lisette Scarrow, RMA Active VERAPAMIL HCL CR 120 MG TAB CR 1 po bid VERAPAMIL HCL 39334600293 No Longer Active Vishal Hui MD Active METOPROLOL SUCCINATE 50 MG TB24 1 tablet by mouth daily METOPROLOL SUCCINATE 20109861876 No Longer Active Vishal Hui MD Active SAPHRIS 10 MG SUBL 1 tab po bid ASENAPINE MALEATE 01260608449 No Longer Active Vishal Hui MD Active LISINOPRIL 20 MG TABS 1 tab po qd LISINOPRIL 32303901428 No Longer Active Vishal Hui MD Active BENADRYL 25 MG CAP 2 po tid prn anxiety DIPHENHYDRAMINE HCL 44500062052 Active Vishal Hui MD Active LATUDA 20 MG TABS Take one by mouth daily LURASIDONE HCL 20002410755 No Longer Active Vishal Hui MD Active TRAZODONE HCL 50 MG TABS 1/2 tab po qd prn for anxiety TRAZODONE HCL 48948777506 No Longer Active Vishal Hui MD Active OMEPRAZOLE 20 MG TBEC 1 po q a.m. 30min prior to first food intake OMEPRAZOLE 15167751037 Active Vishal Hui MD Active RANITIDINE HCL 150 MG CAPS 1 twice a day RANITIDINE HCL 19097631958 Active Vishal Hui MD Active LINZESS 290 MCG CAPS Take one by mouth daily LINACLOTIDE 38832353695 No Longer Active Vishal Hui MD Active SAPHRIS 5 MG SUBL 1 tab po qd ASENAPINE MALEATE 93008680881 No Longer Active Vishal Hui MD Active ZALEPLON 10 MG CAPS 1 cap po every other night ZALEPLON 84168622932 No Longer Active Vishal Hui MD Active LYRICA 50 MG CAPS 1 tab po TID PREGABALIN 12670950926 No Longer Active Vishal Hui MD Active LORATADINE 10 MG TABS 1 tab po qd LORATADINE 34967013125 No Longer Active Vishal Hui MD Active VERAPAMIL HCL ER 180 MG CR-TABS 1 tab po bid VERAPAMIL HCL 36025656749 No Longer Active Vishal Hui MD Active MIRALAX POWD 1 capfull once daily POLYETHYLENE GLYCOL 3350 96953563463 No Longer Active Vishal Hui MD Active PREDNISONE 20 MG TABS 1 tab po qd PREDNISONE 76970025867 No Longer Active Renzo Thornton DO Active LEVOFLOXACIN 500 MG TABS 1 tab po qd LEVOFLOXACIN 13824668866 No Longer Active Renzo Thornton DO Active BUSPIRONE HCL 15 MG TABS 1 tab po TID BUSPIRONE HCL 00581411573 No Longer Active Renzo Thornton DO Active BENZTROPINE MESYLATE 1 MG TABS 1 tab po qd BENZTROPINE MESYLATE 21471405443 No Longer Active Renzo Thornton DO Active ATENOLOL 25 MG TABS 1 tab po qd ATENOLOL 33452001475 No Longer Active Renzo Thornton DO Active ESCITALOPRAM OXALATE 20 MG TABS 1 tab po qd ESCITALOPRAM OXALATE 14443935319 No Longer Active Renzo Thornton DO Active ADVAIR DISKUS 250-50 MCG/DOSE AEPB 1 puff BID FLUTICASONE-SALMETEROL 68853675367 No Longer Active Renzo Thornton DO Active PREDNISONE 20 MG TAB 2 tabs daily for 3 days, 1 tab daily for 3 days, 1/2 tab daily for 2 days PREDNISONE 83043499062 No Longer Active Vishal Hui MD Active CEFDINIR 300 MG CAPS by mouth twice a day CEFDINIR 15730936563 No Longer Active Vishal Hui MD Active LANSOPRAZOLE 30 MG CPDR 1 cap po qd LANSOPRAZOLE 66495066065 No Longer Active Vishal Hui MD Active BACLOFEN 20 MG TABS 1 tab po tid BACLOFEN 61022083587 No Longer Active Vishal Hui MD Active ADVAIR DISKUS 250-50 MCG/DOSE AEPB 1 puff BID ADVAIR DISKUS 250-50 MCG/DOSE AEPB FLUTICASONE-SALMETEROL Inactive ESCITALOPRAM OXALATE 20 MG TABS 1 tab po qd ESCITALOPRAM OXALATE 20 MG TABS 566568 ESCITALOPRAM OXALATE Inactive ATENOLOL 25 MG TABS 1 tab po qd ATENOLOL 25 MG TABS 672716 ATENOLOL Inactive BENZTROPINE MESYLATE 1 MG TABS 1 tab po qd BENZTROPINE MESYLATE 1 MG TABS 504799 BENZTROPINE MESYLATE Inactive BUSPIRONE HCL 15 MG TABS 1 tab po TID BUSPIRONE HCL 15 MG TABS 816650 BUSPIRONE HCL Inactive LEVOFLOXACIN 500 MG TABS 1 tab po qd LEVOFLOXACIN 500 MG TABS 856287 LEVOFLOXACIN Inactive PREDNISONE 20 MG TABS 1 tab po qd PREDNISONE 20 MG TABS 494277 PREDNISONE Inactive MIRALAX POWD 1 capfull once daily MIRALAX POWD 686665 POLYETHYLENE GLYCOL 3350 Inactive VERAPAMIL HCL ER 180 MG CR-TABS 1 tab po bid VERAPAMIL HCL ER 180 MG CR-TABS VERAPAMIL HCL Inactive LORATADINE 10 MG TABS 1 tab po qd LORATADINE 10 MG TABS 584528 LORATADINE Inactive LYRICA 50 MG CAPS 1 tab po TID LYRICA 50 MG CAPS PREGABALIN Inactive ZALEPLON 10 MG CAPS 1 cap po every other night ZALEPLON 10 MG CAPS 460216 ZALEPLON Inactive SAPHRIS 5 MG SUBL 1 tab po qd SAPHRIS 5 MG SUBL ASENAPINE MALEATE Inactive TRAZODONE HCL 50 MG TABS 1/2 tab po qd prn for anxiety TRAZODONE HCL 50 MG TABS 282236 TRAZODONE HCL Inactive LATUDA 20 MG TABS Take one by mouth daily LATUDA 20 MG TABS LURASIDONE HCL Inactive LISINOPRIL 20 MG TABS 1 tab po qd LISINOPRIL 20 MG TABS 220073 LISINOPRIL Inactive SAPHRIS 10 MG SUBL 1 [...] twice daily BACTRIM DS 800-160 MG TAB 809719 TRIMETHOPRIM-SULFAMETHOXAZOLE Inactive MULTIVITAMINS CAPS Take one by mouth daily MULTIVITAMINS CAPS MULTIPLE VITAMIN Inactive MELATONIN 3 MG CAPS 2 po q hs MELATONIN 3 MG CAPS 19950526 MELATONIN Inactive KEFLEX 500 MG ORAL CAPS 1 cap QID by mouth KEFLEX 500 MG ORAL CAPS 568780 CEPHALEXIN Inactive CLINDAMYCIN HCL 150 MG CAPS 1 four times a day CLINDAMYCIN HCL 150 MG CAPS 19740326 CLINDAMYCIN HCL Inactive DIFLUCAN 150 MG TAB 1 tablet by mouth daily DIFLUCAN 150 MG TAB 800236 FLUCONAZOLE Inactive PROZAC 20 MG CAP Take one by mouth daily PROZAC 20 MG CAP 964324 FLUOXETINE HCL Inactive IBUPROFEN 600 MG TAB 1 po TID PRN IBUPROFEN 600 MG TAB 364932 IBUPROFEN Inactive VYVANSE 40 MG CAPS 1 daily, VYVANSE 40 MG CAPS LISDEXAMFETAMINE DIMESYLATE Inactive TRAZODONE HCL 100 MG TAB take 1 at bedtime TRAZODONE HCL 100 MG TAB 611374 TRAZODONE HCL Inactive AMITRIPTYLINE HCL 100 MG TAB one at hs AMITRIPTYLINE HCL 100 MG TAB 583571 AMITRIPTYLINE HCL Inactive AMLODIPINE BESYLATE 5 MG TABS 1 tablet by mouth daily AMLODIPINE BESYLATE 5 MG TABS 079666 AMLODIPINE BESYLATE Inactive LATUDA 80 MG TABS Take one by mouth daily LATUDA 80 MG TABS LURASIDONE HCL Inactive SAPHRIS 5 MG SUBL 1 po bid SAPHRIS 5 MG SUBL ASENAPINE MALEATE Inactive PREDNISONE 20 MG TAB 2 tabs daily for 4 days, 1 tab daily for 4 days, 1/2 tab daily for 4 days PREDNISONE 20 MG TAB 590399 PREDNISONE Inactive AMBIEN 5 MG ORAL TABS 1 tab at bedtime AMBIEN 5 MG ORAL TABS 974441 ZOLPIDEM TARTRATE Inactive PROZAC 20 MG ORAL CAPS 1 tab daily PROZAC 20 MG ORAL CAPS 043664 FLUOXETINE HCL Inactive ABILIFY 15 MG ORAL TABS 1 tab daily ABILIFY 15 MG ORAL TABS 225458 ARIPIPRAZOLE Inactive METOPROLOL TARTRATE 50 MG TAB 1 po bid METOPROLOL TARTRATE 50 MG TAB 061819 METOPROLOL TARTRATE Inactive TRAMADOL HCL 50 MG TABS 1-2 po TID PRN Pain TRAMADOL HCL 50 MG TABS 379038 TRAMADOL HCL Inactive PIROXICAM 20 MG CAPS 1 cap po qd PRN Pain PIROXICAM 20 MG CAPS 220057 PIROXICAM Inactive MINIPRESS 2 MG CAPS 4 cap po at night MINIPRESS 2 MG CAPS 840126 PRAZOSIN HCL Inactive MIRALAX PACK 1 po qd PRN Constipation MIRALAX PACK 079673 POLYETHYLENE GLYCOL 3350 Inactive CEFDINIR 300 MG CAPS by mouth twice a day CEFDINIR 300 MG CAPS 917140 CEFDINIR Inactive PREDNISONE 20 MG TAB 2 tabs daily for 3 days, 1 tab daily for 3 days, 1/2 tab daily for 2 days PREDNISONE 20 MG TAB 293055 PREDNISONE Inactive BACTRIM DS 800-160 MG TABS 1 po BID x 7 days BACTRIM DS 800-160 MG TABS 833101 SULFAMETHOXAZOLE-TRIMETHOPRIM Inactive DIFLUCAN 150 MG TABS 1 pill every other day x 2 doses DIFLUCAN 150 MG TABS 965409 FLUCONAZOLE Inactive BACTRIM DS 800-160 MG TABS 1 pill by mouth twice daily BACTRIM DS 800-160 MG TABS 186874 SULFAMETHOXAZOLE-TRIMETHOPRIM Inactive KEFLEX 500 MG CAP 1 po TID x 10 days KEFLEX 500 MG CAP 655918 CEPHALEXIN Inactive Advance Directives Directive Description Start [...] % 11.6-14.8 platelet count 394 10^3/MM^3 10*3/mm3 383-346 6701/01/11 leukocyte count, blood 13.8 10^3/MM^3 10*3/mm3 4.6-10.2 [...] Panel - Chemistry sodium, serum 139 mmol/L 083-226 5253/12/03 carbon dioxide, venous blood 28.5 mmol/L 21.0-32.0 [...] 5.5 % 4.3-6.0 cholesterol, serum 159 mg/dL 298-653 1823/12/03 triglyceride, serum, fasting 118 mg/dL 30-200 HDL [...] Panel - Chemistry sodium, serum 139 mmol/L 505-450 4019/12/22 carbon dioxide, venous blood 26.8 mmol/L 21.0-32.0 potassium, serum 4.2 mmol/L 3.5-5.2 chloride, serum 103 mmol/L 98-107 blood glucose 115 mg/dL 65-110 urea nitrogen, blood 20 mg/dL 7-18 creatinine, serum 0.90 mg/dL 0.55-1.30 alanine aminotransferase (SGPT), serum 38 U/L 12-78 aspartate aminotransferase (SGOT), serum 19 U/L 15-37 calcium, serum 8.6 mg/dL 8.5-10.1 bilirubin, serum, total 0.30 mg/dL 0.00-1.00 sodium, serum 139 mmol/L 747-896 0995/01/11 carbon dioxide, venous blood 26.6 mmol/L 21.0-32.0 potassium, serum 4.1 mmol/L 3.5-5.2 chloride, serum 100 mmol/L 98-107 blood glucose 86 mg/dL 65-110 urea nitrogen, blood 16 mg/dL 7-18 creatinine, serum 1.00 mg/dL 0.55-1.30 alanine aminotransferase (SGPT), serum 48 U/L - aspartate aminotransferase (SGOT), serum 17 U/L 15-37 calcium, serum 9.1 mg/dL 8.5-10.1 bilirubin, serum, total 0.40 mg/dL 0.00-1.00 sodium, serum 142 mmol/L 238-176 5608/06/08 carbon dioxide, venous blood 27.6 mmol/L 21.0-32.0 [...] Rate - Chemistry sodium, serum 139 mmol/L 576-514 7078/12/11 carbon dioxide, venous blood 25.4 mmol/L 21.0-32.0 [...] 5.0-8.5 Encounters Code Encounter Date Provider Facility CPT-85956 Level 3 New Patient 16:53:37 CDT Albert Caldera MD [facility] CPT-81367 Level 3 Est. Patient 11:25:49 CDT Renzo Thornton DO [facility] CPT-19269 Level 3 Est. Patient 15:22:01 CDT Ahmet Carbajal MD [facility] CPT-05222 Level 4 Est. Patient 09:00:51 HEEL VARNISHER Vishal Hui MD [facility] CPT-95139 Level 3 Est. Patient 11:37:33 HEEL VARNISHER Visahl Hui MD [facility] CPT-14182 Level 3 Est. Patient 08:41:09 HEEL VARNISHER Vishal Hui MD [facility] CPT-85803 Level 4 Est. Patient 10:19:35 HEEL VARNISHER Vishal Hui MD [facility] CPT-26315 Level 3 Est. Patient 13:35:45 CDT Vishal Hui MD [facility] CPT-43646 Level 4 Est. Patient 10:08:37 CDT Vishal Hui MD [facility]-62421 Level 3 Est. Patient 11:22:10 CDT Vishal Hui MD [facility]-15463 Level 3 Est. Patient 11:03:32 CDT Sahara Rodriguez MD [facility]-35092 Level 3 Est. Patient 09:41:35 CDT Vishal Hui MD [facility]-52500 Level 3 Est. Patient 12:00:41 CDT Neeraj Collins MD [facility] CPT-21436 Level 3 Est. Patient 09:16:24 CDT Vishal Hui MD [facility]-08066 Level 4 Est. Patient 13:59:09 CDT Neeraj Collins MD [facility]-65249 Level 3 Est. Patient 15:19:43 CDT Renzo Thornton DO [facility] CPT-15470 Level 3 Est. Patient 18:10:26 CDT Sahara Rodriguez MD [facility]-01196 Level 3 Est. Patient 14:49:50 CDT Vishal Hui MD [facility]-86482 Level 4 Est. Patient 18:41:46 CDT Neeraj Collins MD [facility]-66271 Level 4 Est. Patient 09:18:38 HEEL VARNISHER Vishal Hui MD [facility]-44289 Level 3 Est. Patient 14:43:55 HEEL VARNISHER Vishal Hui MD [facility] CPT-88960 Level 3 Est. Patient 15:26:33 HEEL VARNISHER Sahara Rodriguez MD [facility]-62830 Level 3 Est. Patient 10:32:14 HEEL VARNISHER Vishal Hui MD [facility]-68120 Level 3 Est. Patient 15:12:52 HEEL VARNISHER Vishal Hui MD [facility] CPT-71837 Level 4 Est. Patient 09:19:27 CDT Vishal Hui MD [facility] CPT-99569 Level 3 Est. Patient 15:53:00 CDT Renzo Thornton [facility] CPT-09412 Level 3 Est. Patient 15:50:30 CDT Renzo Thornton [facility] CPT-23872 Level 3 Est. Patient 16:55:24 CDT Vishal Hui MD [facility] Procedures Code Procedure Name Date Entry Date Standard Description CPT-46823 EKG Trac and Interp - XRAY USE ONLY 11:31:43 CDT 08/26 CPT-J3420 Vitamin B12 1000mcg (Cyanocobalamin) 08:10:26 HEEL VARNISHER 04/12 CPT-96893 Abx/Therapy Injection 08:10:26 HEEL VARNISHER CPT-G0438 Initial Annual Wellness Exam 19:01:01 HEEL VARNISHER CPT-J3420 Vitamin B12 1000mcg (Cyanocobalamin) 16:57:46 CDT 08/14 CPT-74556 Recombivax HB Injection Suspension 5 MCG/0.5ML 08:37:50 HEEL VARNISHER CPT-45578 Immunization Single Admin 08:37:50 HEEL VARNISHER CPT-J3420 Vitamin B12 1000mcg (Cyanocobalamin) 08:32:16 HEEL VARNISHER 03/11 CPT-41270 Abx/Therapy Injection 08:32:16 HEEL VARNISHER CPT-19322 Chest 2V Frontal and Lat 11:46:38 HEEL VARNISHER CPT-51904 Venipuncture Draw Fee 09:12:45 HEEL VARNISHER CPT-J3420 Vitamin B12 1000mcg (Cyanocobalamin) 08:50:15 HEEL VARNISHER 02/08 CPT-97421 Abx/Therapy Injection 08:50:15 HEEL VARNISHER CPT-Cryo Cryotherapy 10:19:35 HEEL VARNISHER CPT-000 Give Appropriate Flu Vaccine 09:22:16 CDT CPT-J3420 Vitamin B12 1000mcg (Cyanocobalamin) 19:08:57 CDT 01/11 CPT-10034 Abx/Therapy Injection 19:08:57 CDT CPT-J3420 Vitamin B12 1000mcg (Cyanocobalamin) 08:19:08 CDT 12/11 CPT-01607 Abx/Therapy Injection 08:19:08 CDT CPT-J3420 Vitamin B12 1000mcg (Cyanocobalamin) 14:48:00 CDT 11/09 CPT-78281 Abx/Therapy Injection 14:47:59 CDT CPT-J3420 Vitamin B12 1000mcg (Cyanocobalamin) 08:34:04 CDT 10/09 CPT-68920 Abx/Therapy Injection 08:34:04 CDT CPT-J3420 Vitamin B12 1000mcg (Cyanocobalamin) 09:18:52 CDT 09/11 CPT-68561 Abx/Therapy Injection 09:18:52 CDT CPT-J3420 Vitamin B12 1000mcg (Cyanocobalamin) 08:35:44 CDT 09/04 CPT-18127 Abx/Therapy Injection 08:35:44 CDT CPT-72196 Immunization Single Admin 11:07:16 CDT CPT-07284 Hepatitis B adult IM 11:07:16 CDT CPT-J3420 Vitamin B12 1000mcg (Cyanocobalamin) 11:00:49 CDT 08/28 CPT-J1040 Depo Medrol 80 mg (Methyl Prednisolone Acetate) 11:00: 49 CDT CPT-48669 Abx/Therapy Injection 11:00:49 CDT CPT-J1040 Depo Medrol 80 mg (Methyl Prednisolone Acetate) 09:16: 23 CDT CPT-J3420 Vitamin B12 1000mcg (Cyanocobalamin) 08:27:05 CDT 08/20 CPT-53284 Abx/Therapy Injection 08:27:05 CDT CPT-97079 Recombivax HB Injection Suspension 5 MCG/0.5ML 10:00:41 CDT CPT-00561 Administration single or combination vaccine inc oral 10 :00:41 CDT CPT-62036 Sono transvag pelvis non OB uterus ovaries cervix 16:36: 57 CDT CPT-67490 LS spine comp w obliq 09:50:55 HEEL VARNISHER CPT-01886 Abd compl w upright 09:50:55 HEEL VARNISHER CPT-J1100 Decadron 4mg (Dexamethasone) 15:51:24 HEEL VARNISHER CPT-J1030 Depo Medrol 40 mg (Methyl Prednisolone Acetate) 15:51: 24 HEEL VARNISHER CPT-90115 Abx/Therapy Injection 15:51:24 HEEL VARNISHER CPT-J1100 Decadron 4mg (Dexamethasone) 15:26:33 HEEL VARNISHER CPT-J1030 Depo Medrol 40 mg (Methyl Prednisolone Acetate) 15:26: 33 HEEL VARNISHER CPT-64008 Sono retroperitoneal complete kidneys and bladder 17:15: 30 CDT CPT-66213 Abd compl w upright 16:09:25 CDT CPT-J1100 Decadron 8mg (Dexamethasone) 17:07:57 CDT CPT-28001 Abx/Therapy Injection 17:07:57 CDT CPT-J1100 Decadron 8mg (Dexamethasone) 16:55:24 CDT CPT-68386 Chest 2V Frontal and Lat 16:32:44 CDT
--- OUTSIDE RECORDS SUMMARY | 2016-11-04 22:01 | XMS REPORT | Clinical Summary ---
Author Author Admin, FLOR Organization [facility] Address Unknown Phone Unavailable Allergies, Adverse Reactions, [...] sites Morbid obesity 278.01 Active Juliet Kimbrough [employer] Morbid obesity 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 Active Juliet [...] breath Nocturnal hypoxia 799.02 Active Fabiola Johnson [employer] Hypoxemia Neck pain 723.1 Resolved Vishal Hui [...] fibula Vaginal discharge 623.5 Active Luigi Martínez [employer] Leukorrhea, not specified as infective DYSURIA 788.1 [...] MD Abdominal pain, RUQ ICD-789.01 Inactive Albert aCldera MD Chest pain, acute ICD-786.50 Inactive Albert Caldera MD Localized adiposity ICD-278.1 Inactive Vishal Hui MD Shortness of breath ICD-786.05 Inactive Vishal Hui MD Smoker/tobacco use disorder-smoking cessation discussed ICD-305.1 Inactive Vishal Hui MD Neck pain ICD-723.1 [...] each nostril daily for allergies FLUTICASONE PROPIONATE 16312858726 Active Tila Valenzuela Active GUAIFENESIN-CODEINE 100-10 MG/5ML SYRP 5ml every 4 to 6 hours as needed for cough GUAIFENESIN-CODEINE 55937529572 Active Ahmet Carbjaal MD Active PREDNISONE 20 MG TABS 2 daily for 5 days then 1 daily for 5 days PREDNISONE 77773955598 Active Ahmet Carbajal MD Active LAMICTAL 100 MG ORAL TABS 1 tab q.d LAMOTRIGINE 69641329351 Active Ahmet Carbajal MD Active BENADRYL 25 MG CAP 4 po at bedtime for insomnia DIPHENHYDRAMINE HCL 80847992580 No Longer Active Ahmet Carbajal MD Active ADVAIR DISKUS 250-50 MCG/DOSE INH AEPB 1 puff twice a day for asthma FLUTICASONE-SALMETEROL 93898357223 No Longer Active Ahmet Carbajal MD Active KLONOPIN 1 MG ORAL TABS 1 tab po TID CLONAZEPAM 44391450456 No Longer Active Ahmet Carbajal MD Active ABILIFY MAINTENA 400 MG IM SUSR 400mg injection every 26 days ARIPIPRAZOLE 83898352552 No Longer Active Ahmet Carbajal MD Active HALOPERIDOL 10 MG ORAL TABS 1 tab q.d HALOPERIDOL 45388087651 Active Ahmet Carbajal MD Active ASPIRIN 325 MG ORAL TABS 1 tab q.d ASPIRIN 52626281708 Active Ahmet Carbajal MD Active HYDROCODONE-ACETAMINOPHEN 5-325 MG ORAL TABS 1 tab two times a day HYDROCODONE-ACETAMINOPHEN 57966977470 Active Ahmet Carbajal MD Active TRAMADOL HCL 50 MG TABS 1/2-1 tab TID PRN TRAMADOL HCL 85526353983 No Longer Active Ahmet Carbajal MD Active BACTRIM DS 800-160 MG TABS 1 twice a day SULFAMETHOXAZOLE- TRIMETHOPRIM 41016610475 No Longer Active Ahmet Carbajal MD Active PROAIR HFA 108 (90 BASE) MCG/ACT AERS 2 puffs four times a day as needed 2015 ALBUTEROL SULFATE 09184744860 Active Ahmet Carbajal MD Active EQ NICOTINE 21 MG/24HR TRANS PT24 Apply daily to stop smoking NICOTINE 51656052704 Active Ahmet Carbajal MD Active MONISTAT 7 COMBO PACK WOODROW 100 & 2 MG-% (9GM) VAG KIT 1 applicatorful per vagina q pm x 7 MICONAZOLE NITRATE 58154577982 No Longer Active Ahmet Carbajal MD Active FLAGYL 500 MG TAB 1 tablet by mouth bid METRONIDAZOLE 49148704467 No Longer Active Ahmet Carbajal MD Active OXYCODONE HCL ER 10 MG ORAL T12A 1/2 tab by mouth every 4 hours prn OXYCODONE HCL 57862393853 No Longer Active Ahmet Carbajal MD Active METHYLPREDNISOLONE 4 MG ORAL TABS po daily METHYLPREDNISOLONE 15594866883 No Longer Active Ahmet Carbajal MD Active LEVOFLOXACIN 500 MG ORAL TABS po daily LEVOFLOXACIN 62449884904 No Longer Active Ahmet Carbajal MD Active VIIBRYD 10 MG ORAL TABS Take 1 tablet once a day VILAZODONE HCL 31841746347 No Longer Active Ahmet Carbajal MD Active TOPAMAX 50 MG ORAL TABS 1 tab twice daily TOPIRAMATE 57895494302 No Longer Active Ahmet Carbajal MD Active DICLOFENAC SODIUM 50 MG TBEC 1 tablet by mouth four times daily PRN Pain 2015 DICLOFENAC SODIUM 36890804612 No Longer Active Ahmet Carbajal MD Active ADZENYS XR-ODT 6.3 MG ORAL TBED 1 tab po daily for ADHD AMPHETAMINE 20794781537 No Longer Active Ahmet Carbajal MD Active CHANTIX 1 MG TABS 1 twice a day to help quit smoking VARENICLINE TARTRATE 45786480785 No Longer Active Dipika Burgos MD Active CHANTIX STARTING MONTH EARNEST 0.5 MG X 11 & 1 MG X 42 TABS take as directed 2015 VARENICLINE TARTRATE 97085205181 No Longer Active Dipika Burgos MD Active TESSALON PERLES 100 MG CAP 1 to 2 tablets by mouth 3 times daily as needed for cough BENZONATATE 38588178677 No Longer Active Luigi Martínez [employer] Active IMITREX 50 MG ORAL TABS 0.5 po x 1 PRN Headache. May repeat dose x 1 in 2 hours if needed SUMATRIPTAN SUCCINATE 87955838556 Active TAMARA Casey Active HYDROCODONE-ACETAMINOPHEN 5-325 MG TABS 1 to 2 four times a day as needed for pain use until can be seen by specialist HYDROCODONE- ACETAMINOPHEN 51505363603 No Longer Active Vishal Hui MD Active PROAIR HFA 108 (90 BASE) MCG/ACT AERS 2 puffs four times a day as needed 2015 ALBUTEROL SULFATE 41816987692 No Longer Active Vishal Hui MD Active PREDNISONE 20 MG TABS 2 daily for 5 days then 1 daily for 5 days PREDNISONE 37534019629 No Longer Active Vishal Hui MD Active ZITHROMAX Z-EARNEST 250 MG TABS 2 today and then 1 daily for 4 days AZITHROMYCIN 35411509940 No Longer Active Vishal Hui MD Active DICLOFENAC POTASSIUM TABS Take 1 tablet twice a day (pt. is not sure of the dose.) DICLOFENAC POTASSIUM TABS 95380128831 No Longer Active Vishal Hui MD Active VERAPAMIL HCL ER 120 MG ORAL CR-TABS Take 1 tablet by mouth twice a day. VERAPAMIL HCL 47016711105 Active Vishal Hui MD Active FLAGYL 500 MG TAB 1 tablet by mouth bid METRONIDAZOLE 37467121501 No Longer Active Vishal Hui MD Active FLUTICASONE PROPIONATE 50 MCG/ACT SUSP 2 sprays each nostril daily before bed. FLUTICASONE PROPIONATE 20194462754 Active Fabiola Johnson APRN Active VALIUM 5 MG TAB Take 1-2 tablets daily DIAZEPAM 47770312281 No Longer Active Fabiola Johnson APRN Active METOPROLOL TARTRATE 25 MG ORAL TABS 1/2 tablet twice daily for heart rate and blood pressure METOPROLOL TARTRATE 61106617742 No Longer Active Fabiola Johnson APRN Active MIRALAX ORAL POWD 17GMS DAILY IN WATER POLYETHYLENE GLYCOL 3350 31460923505 Active Vishal Hui MD Active MIRALAX PACK 1 po qd PRN Constipation POLYETHYLENE GLYCOL 3350 82646669467 No Longer Active Ahmet Carbajal MD Active MINIPRESS 2 MG CAPS 4 cap po at night PRAZOSIN HCL 74248888190 No Longer Active Ahmet Carbajal MD Active PIROXICAM 20 MG CAPS 1 cap po qd PRN Pain PIROXICAM 66986795102 No Longer Active Ahmet Carbajal MD Active TRAMADOL HCL 50 MG TABS 1-2 po TID PRN Pain TRAMADOL HCL 92295282630 No Longer Active Ahmet Carbajal MD Active METOPROLOL TARTRATE 50 MG TAB 1 po bid METOPROLOL TARTRATE 46726257524 No Longer Active Ahmet Carbajal MD Active ABILIFY 15 MG ORAL TABS 1 tab daily ARIPIPRAZOLE 42562510542 No Longer Active Ahmet Carbajal MD Active PROZAC 20 MG ORAL CAPS 1 tab daily FLUOXETINE HCL 55618358200 No Longer Active Ahmet Carbajal MD Active AMBIEN 5 MG ORAL TABS 1 tab at bedtime ZOLPIDEM TARTRATE 42627418580 No Longer Active Ahmet Carbajal MD Active PREDNISONE 20 MG TAB 2 tabs daily for 4 days, 1 tab daily for 4 days, 1/2 tab daily for 4 days PREDNISONE 07504465725 No Longer Active Ahmet Carbajal MD Active KEFLEX 500 MG CAP 1 po TID x 10 days CEPHALEXIN 87747197806 No Longer Active Vishal Hui MD Active SAPHRIS 5 MG SUBL 1 po bid ASENAPINE MALEATE 24253679643 No Longer Active Jillina Frazelephraim [employer] Active LATUDA 80 MG TABS Take one by mouth daily LURASIDONE HCL 95507313032 No Longer Active Jillina Frazell [employer] Active AMLODIPINE BESYLATE 5 MG TABS 1 tablet by mouth daily AMLODIPINE BESYLATE 38366207784 No Longer Active Jillina Fradwightl [employer] Active AMITRIPTYLINE HCL 100 MG TAB one at hs AMITRIPTYLINE HCL 93560535122 No Longer Active Vishal Hui MD Active TRAZODONE HCL 100 MG TAB take 1 at bedtime TRAZODONE HCL 93474557687 No Longer Active Vishal Hui MD Active VYVANSE 40 MG CAPS 1 daily, LISDEXAMFETAMINE DIMESYLATE 81314701935 No Longer Active Vishal Hui MD Active IBUPROFEN 600 MG TAB 1 po TID PRN IBUPROFEN 66938502999 No Longer Active Vishal Hui MD Active PROZAC 20 MG CAP Take one by mouth daily FLUOXETINE HCL 41202240377 No Longer Active Vishal Hui MD Active ZOFRAN 4 MG TABS 1 po q6hr PRN Nausea ONDANSETRON HCL Active Vishal Hui MD Active BACTRIM DS 800-160 MG TABS 1 pill by mouth twice daily SULFAMETHOXAZOLE-TRIMETHOPRIM 31901449210 No Longer Active Sahara Rodriguez MD PhD Active DIFLUCAN 150 MG TAB 1 tablet by mouth daily FLUCONAZOLE 75313760217 No Longer Active Vishal Hui MD Active TIZANIDINE HCL 4 MG TABS 1 po q6hr PRN Muscle Spasm/Back Pain TIZANIDINE HCL 33608070336 Active Vishal Hui MD Active CLINDAMYCIN HCL 150 MG CAPS 1 four times a day CLINDAMYCIN HCL 00103316147 No Longer Active Neeraj Collins MD Active KEFLEX 500 MG ORAL CAPS 1 cap QID by mouth CEPHALEXIN 20167031996 No Longer Active Neeraj Collins MD Active DIFLUCAN 150 MG TABS 1 pill every other day x 2 doses FLUCONAZOLE 04304795774 No Longer Active Sahara Rodriguez MD PhD Active MELATONIN 3 MG CAPS 2 po q hs MELATONIN 44218298767 No Longer Active Sahara Rodriguez MD PhD Active MULTIVITAMINS CAPS Take one by mouth daily MULTIPLE VITAMIN 31079945423 No Longer Active Sahara Rodriguez MD PhD Active BACTRIM DS 800-160 MG TAB 1 tab by mouth twice daily TRIMETHOPRIM-SULFAMETHOXAZOLE 46776742528 No Longer Active Sahara Rodriguez MD PhD Active [employer] PROBIOTIC ORAL CHEW 2 daily po PROBIOTIC PRODUCT 44569148119 No Longer Active Sahara Rodriguez MD PhD Active BACTRIM DS 800-160 MG TABS 1 po BID x 7 days SULFAMETHOXAZOLE-TRIMETHOPRIM 47583190904 No Longer Active Vishal Hui MD Active CHANTIX STARTING MONTH EARNEST 0.5 MG X 11 & 1 MG X 42 TABS 0.5mg daily for 3 days , then 0.5mg BID for 4 days, then 1mg BID VARENICLINE TARTRATE 86281149328 No Longer Active TAMARA Gray Active VERAPAMIL HCL CR 120 MG TAB CR 1 po bid VERAPAMIL HCL 25209836351 No Longer Active Vishal Hui MD Active METOPROLOL SUCCINATE 50 MG TB24 1 tablet by mouth daily METOPROLOL SUCCINATE 62661322498 No Longer Active Vishal Hui MD Active SAPHRIS 10 MG SUBL 1 tab po bid ASENAPINE MALEATE 91955390912 No Longer Active Vishal Hui MD Active LISINOPRIL 20 MG TABS 1 tab po qd LISINOPRIL 36397102702 No Longer Active Vishal Hui MD Active LATUDA 20 MG TABS Take one by mouth daily LURASIDONE HCL 72973315129 No Longer Active Vishal Hui MD Active TRAZODONE HCL 50 MG TABS 1/2 tab po qd prn for anxiety TRAZODONE HCL 61141590410 No Longer Active Vishal Hui MD Active OMEPRAZOLE 20 MG TBEC 1 po q a.m. 30min prior to first food intake OMEPRAZOLE 60700942928 Active Vishal Hui MD Active RANITIDINE HCL 150 MG CAPS 1 twice a day RANITIDINE HCL 75565238965 Active Jillina Messizelephraim [employer] Active LINZESS 290 MCG CAPS Take one by mouth daily LINACLOTIDE 93938807735 No Longer Active Vishal Hui MD Active SAPHRIS 5 MG SUBL 1 tab po qd ASENAPINE MALEATE 77948552645 No Longer Active Vishal Hui MD Active ZALEPLON 10 MG CAPS 1 cap po every other night ZALEPLON 65071544963 No Longer Active Vishal Hui MD Active LYRICA 50 MG CAPS 1 tab po TID PREGABALIN 89474793507 No Longer Active Vishal Hui MD Active LORATADINE 10 MG TABS 1 tab po qd LORATADINE 95785912149 No Longer Active Vishal Hui MD Active VERAPAMIL HCL ER 180 MG CR-TABS 1 tab po bid VERAPAMIL HCL 49774181585 No Longer Active Vishal Hui MD Active MIRALAX POWD 1 capfull once daily POLYETHYLENE GLYCOL 3350 59054484787 No Longer Active Vishal Hui MD Active PREDNISONE 20 MG TABS 1 tab po qd PREDNISONE 67369943368 No Longer Active Renzo Thornton DO Active LEVOFLOXACIN 500 MG TABS 1 tab po qd LEVOFLOXACIN 60722548129 No Longer Active Renzo Thornton DO Active BUSPIRONE HCL 15 MG TABS 1 tab po TID BUSPIRONE HCL 07971191192 No Longer Active Renzo Thornton DO Active BENZTROPINE MESYLATE 1 MG TABS 1 tab po qd BENZTROPINE MESYLATE 71305579821 No Longer Active Renzo Thornton DO Active ATENOLOL 25 MG TABS 1 tab po qd ATENOLOL 32157504762 No Longer Active Renzo Thornton DO Active ESCITALOPRAM OXALATE 20 MG TABS 1 tab po qd ESCITALOPRAM OXALATE 29927043639 No Longer Active Renzo Thornton DO Active ADVAIR DISKUS 250-50 MCG/DOSE AEPB 1 puff BID FLUTICASONE-SALMETEROL 09301771739 No Longer Active Renzo Thornton DO Active PREDNISONE 20 MG TAB 2 tabs daily for 3 days, 1 tab daily for 3 days, 1/2 tab daily for 2 days PREDNISONE 36775474976 No Longer Active Vishal Hui MD Active CEFDINIR 300 MG CAPS by mouth twice a day CEFDINIR 11272479275 No Longer Active Vishal Hui MD Active LANSOPRAZOLE 30 MG CPDR 1 cap po qd LANSOPRAZOLE 62122003580 No Longer Active Vishal Hui MD Active BACLOFEN 20 MG TABS 1 tab po tid BACLOFEN 41319516601 No Longer Active Vishal Hui MD Active ADVAIR DISKUS 250-50 MCG/DOSE AEPB 1 puff BID ADVAIR DISKUS 250-50 MCG/DOSE AEPB FLUTICASONE-SALMETEROL Inactive ESCITALOPRAM OXALATE 20 MG TABS 1 tab po qd ESCITALOPRAM OXALATE 20 MG TABS 474440 ESCITALOPRAM OXALATE Inactive ATENOLOL 25 MG TABS 1 tab po qd ATENOLOL 25 MG TABS 302013 ATENOLOL Inactive BENZTROPINE MESYLATE 1 MG TABS 1 tab po qd BENZTROPINE MESYLATE 1 MG TABS 335671 BENZTROPINE MESYLATE Inactive BUSPIRONE HCL 15 MG TABS 1 tab po TID BUSPIRONE HCL 15 MG TABS 774007 BUSPIRONE HCL Inactive LEVOFLOXACIN 500 MG TABS 1 tab po qd LEVOFLOXACIN 500 MG TABS 654014 LEVOFLOXACIN Inactive PREDNISONE 20 MG TABS 1 tab po qd PREDNISONE 20 MG TABS 321935 PREDNISONE Inactive MIRALAX POWD 1 capfull once daily MIRALAX POWD 414697 POLYETHYLENE GLYCOL 3350 Inactive VERAPAMIL HCL ER 180 MG CR-TABS 1 tab po bid VERAPAMIL HCL ER 180 MG CR-TABS VERAPAMIL HCL Inactive LORATADINE 10 MG TABS 1 tab po qd LORATADINE 10 MG TABS 216438 LORATADINE Inactive LYRICA 50 MG CAPS 1 tab po TID LYRICA 50 MG CAPS PREGABALIN Inactive ZALEPLON 10 MG CAPS 1 cap po every other night ZALEPLON 10 MG CAPS 688609 ZALEPLON Inactive SAPHRIS 5 MG SUBL 1 tab po qd SAPHRIS 5 MG SUBL ASENAPINE MALEATE Inactive TRAZODONE HCL 50 MG TABS 1/2 tab po qd prn for anxiety TRAZODONE HCL 50 MG TABS 394602 TRAZODONE HCL Inactive LATUDA 20 MG TABS Take one by mouth daily LATUDA 20 MG TABS LURASIDONE HCL Inactive LISINOPRIL 20 MG TABS 1 tab po qd LISINOPRIL 20 MG TABS 643419 LISINOPRIL Inactive SAPHRIS 10 MG SUBL 1 [...] twice daily BACTRIM DS 800-160 MG TAB 921815 TRIMETHOPRIM-SULFAMETHOXAZOLE Inactive MULTIVITAMINS CAPS Take one by mouth daily MULTIVITAMINS CAPS MULTIPLE VITAMIN Inactive MELATONIN 3 MG CAPS 2 po q hs MELATONIN 3 MG CAPS 552192 MELATONIN Inactive KEFLEX 500 MG ORAL CAPS 1 cap QID by mouth KEFLEX 500 MG ORAL CAPS 319324 CEPHALEXIN Inactive CLINDAMYCIN HCL 150 MG CAPS 1 four times a day CLINDAMYCIN HCL 150 MG CAPS 825826 CLINDAMYCIN HCL Inactive DIFLUCAN 150 MG TAB 1 tablet by mouth daily DIFLUCAN 150 MG TAB 552214 FLUCONAZOLE Inactive PROZAC 20 MG CAP Take one by mouth daily PROZAC 20 MG CAP 366386 FLUOXETINE HCL Inactive IBUPROFEN 600 MG TAB 1 po TID PRN IBUPROFEN 600 MG TAB 999690 IBUPROFEN Inactive VYVANSE 40 MG CAPS 1 daily, VYVANSE 40 MG CAPS LISDEXAMFETAMINE DIMESYLATE Inactive TRAZODONE HCL 100 MG TAB take 1 at bedtime TRAZODONE HCL 100 MG TAB 896000 TRAZODONE HCL Inactive AMITRIPTYLINE HCL 100 MG TAB one at hs AMITRIPTYLINE HCL 100 MG TAB 382511 AMITRIPTYLINE HCL Inactive AMLODIPINE BESYLATE 5 MG TABS 1 tablet by mouth daily AMLODIPINE BESYLATE 5 MG TABS 502149 AMLODIPINE BESYLATE Inactive LATUDA 80 MG TABS Take one by mouth daily LATUDA 80 MG TABS LURASIDONE HCL Inactive SAPHRIS 5 MG SUBL 1 po bid SAPHRIS 5 MG SUBL ASENAPINE MALEATE Inactive PREDNISONE 20 MG TAB 2 tabs daily for 4 days, 1 tab daily for 4 days, 1/2 tab daily for 4 days PREDNISONE 20 MG TAB 014507 PREDNISONE Inactive AMBIEN 5 MG ORAL TABS 1 tab at bedtime AMBIEN 5 MG ORAL TABS 960196 ZOLPIDEM TARTRATE Inactive PROZAC 20 MG ORAL CAPS 1 tab daily PROZAC 20 MG ORAL CAPS 309245 FLUOXETINE HCL Inactive ABILIFY 15 MG ORAL TABS 1 tab daily ABILIFY 15 MG ORAL TABS 495723 ARIPIPRAZOLE Inactive METOPROLOL TARTRATE 50 MG TAB 1 po bid METOPROLOL TARTRATE 50 MG TAB 204811 METOPROLOL TARTRATE Inactive TRAMADOL HCL 50 MG TABS 1-2 po TID PRN Pain TRAMADOL HCL 50 MG TABS 777907 TRAMADOL HCL Inactive PIROXICAM 20 MG CAPS 1 cap po qd PRN Pain PIROXICAM 20 MG CAPS 378786 PIROXICAM Inactive MINIPRESS 2 MG CAPS 4 cap po at night MINIPRESS 2 MG CAPS 724023 PRAZOSIN HCL Inactive MIRALAX PACK 1 po qd PRN Constipation MIRALAX PACK 072134 POLYETHYLENE GLYCOL 3350 Inactive METOPROLOL TARTRATE 25 MG ORAL TABS 1/2 tablet twice daily for heart rate and blood pressure METOPROLOL TARTRATE 25 MG ORAL TABS 208632 METOPROLOL TARTRATE Inactive VALIUM 5 MG TAB Take 1-2 tablets daily VALIUM 5 MG TAB 235294 DIAZEPAM Inactive FLAGYL 500 MG TAB 1 tablet by mouth bid FLAGYL 500 MG TAB 502873 METRONIDAZOLE Inactive DICLOFENAC POTASSIUM TABS Take 1 tablet twice a day (pt. is not sure of the dose.) DICLOFENAC POTASSIUM TABS DICLOFENAC POTASSIUM TABS Inactive ZITHROMAX Z-EARNEST 250 MG TABS 2 today and then 1 daily for 4 days ZITHROMAX Z-EARNEST 250 MG TABS 9220872 AZITHROMYCIN Inactive PREDNISONE 20 MG TABS 2 daily for 5 days then 1 daily for 5 days PREDNISONE 20 MG TABS 141239 PREDNISONE Inactive PROAIR HFA 108 (90 BASE) MCG/ACT AERS 2 puffs four times a day as needed 2015 PROAIR HFA 108 (90 BASE) MCG/ACT AERS ALBUTEROL SULFATE Inactive HYDROCODONE-ACETAMINOPHEN 5-325 MG TABS 1 to 2 four times a day as needed for pain use until can be seen by specialist HYDROCODONE- ACETAMINOPHEN 5-325 MG TABS 625462 HYDROCODONE-ACETAMINOPHEN Inactive TESSALON PERLES 100 MG CAP 1 to 2 tablets by mouth 3 times daily as needed for cough TESSALON PERLES 100 MG CAP 396626 BENZONATATE Inactive CHANTIX STARTING MONTH EARNEST 0.5 [...] Pain 2015 DICLOFENAC SODIUM 50 MG TBEC 953279 DICLOFENAC SODIUM Inactive TOPAMAX 50 MG ORAL TABS 1 tab twice daily TOPAMAX 50 MG ORAL TABS 889550 TOPIRAMATE Inactive VIIBRYD 10 MG ORAL TABS Take 1 tablet once a day VIIBRYD 10 MG ORAL TABS VILAZODONE HCL Inactive LEVOFLOXACIN 500 MG ORAL TABS po daily LEVOFLOXACIN 500 MG ORAL TABS 278646 LEVOFLOXACIN Inactive METHYLPREDNISOLONE 4 MG ORAL TABS po daily METHYLPREDNISOLONE 4 MG ORAL TABS 395052 METHYLPREDNISOLONE Inactive OXYCODONE HCL ER 10 MG ORAL T12A 1/2 tab by mouth every 4 hours prn OXYCODONE HCL ER 10 MG ORAL T12A OXYCODONE HCL Inactive FLAGYL 500 MG TAB 1 tablet by mouth bid FLAGYL 500 MG TAB 794685 METRONIDAZOLE Inactive MONISTAT 7 COMBO PACK WOODROW 100 & 2 MG-% (9GM) VAG KIT 1 applicatorful per vagina q pm x 7 MONISTAT 7 COMBO PACK WOODROW 100 & 2 MG-% (9GM) VAG KIT MICONAZOLE NITRATE Inactive BACTRIM DS 800-160 MG TABS 1 twice a day BACTRIM DS 800-160 MG TABS 558969 SULFAMETHOXAZOLE-TRIMETHOPRIM Inactive TRAMADOL HCL 50 MG TABS 1/2-1 tab TID PRN TRAMADOL HCL 50 MG TABS 137986 TRAMADOL HCL Inactive ABILIFY MAINTENA 400 MG IM SUSR 400mg injection every 26 days ABILIFY MAINTENA 400 MG IM SUSR ARIPIPRAZOLE Inactive KLONOPIN 1 MG ORAL TABS 1 tab po TID KLONOPIN 1 MG ORAL TABS 317790 CLONAZEPAM Inactive ADVAIR DISKUS 250-50 MCG/DOSE INH AEPB 1 puff twice a day for asthma ADVAIR DISKUS 250-50 MCG/DOSE INH AEPB FLUTICASONE- SALMETEROL Inactive BENADRYL 25 MG CAP 4 po at bedtime for insomnia BENADRYL 25 MG CAP DIPHENHYDRAMINE HCL Inactive CEFDINIR 300 MG CAPS by mouth twice a day CEFDINIR 300 MG CAPS 570553 CEFDINIR Inactive PREDNISONE 20 MG TAB 2 tabs daily for 3 days, 1 tab daily for 3 days, 1/2 tab daily for 2 days PREDNISONE 20 MG TAB 396100 PREDNISONE Inactive BACTRIM DS 800-160 MG TABS 1 po BID x 7 days BACTRIM DS 800-160 MG TABS 19820521 SULFAMETHOXAZOLE-TRIMETHOPRIM Inactive DIFLUCAN 150 MG TABS 1 pill every other day x 2 doses DIFLUCAN 150 MG TABS 398051 FLUCONAZOLE Inactive BACTRIM DS 800-160 MG TABS 1 pill by mouth twice daily BACTRIM DS 800-160 MG TABS 19820521 SULFAMETHOXAZOLE-TRIMETHOPRIM Inactive KEFLEX 500 MG CAP 1 po TID x 10 days KEFLEX 500 MG CAP 698466 CEPHALEXIN Inactive Advance Directives Directive Description Start [...] 369 10^3/MM^3 10*3/mm3 142-424 Lab Report: Chlamydia/GC APTIMA/[id number] - Lab chlamydia DNA probe NOT DETECTED NOT DETECTED Lab Report: Chlamydia/GC APTIMA/[id number] - Microbiology Neisseria gonorrhoeae DNA probe NOT DETECTED NOT DETECTED Lab Report: Comp. Metabolic Panel - Chemistry sodium, serum 142 mmol/L [phone]/06/08 carbon dioxide, venous blood 27.6 mmol/L 21.0-32.0 potassium, serum 4.0 mmol/L 3.5-5.2 chloride, serum 105 mmol/L 98-107 blood glucose 95 mg/dL 65-110 urea nitrogen, blood 8 mg/dL 7-18 creatinine, serum 0.75 mg/dL 0.55-1.30 alanine aminotransferase (SGPT), serum 49 U/L 12-78 aspartate aminotransferase (SGOT), serum 28 U/L 15-37 calcium, serum 9.4 mg/dL 8.5-10.1 bilirubin, serum, total 0.30 mg/dL 0.00-1.00 sodium, serum 140 mmol/L 759-665 9906/08/08 carbon dioxide, venous blood 33.7 mmol/L 21.0-32.0 [...] mg/dL Encounters Code Encounter Date Provider Facility CPT-79528 Level 3 Est. Patient 10:40:11 CLINICAL TRIALS SPECIALIST Ahmet Carbajal MD [facility] CPT-24614 Level 3 Est. Patient 15:07:06 CLINICAL TRIALS SPECIALIST Neeraj Collins MD [facility] CPT-07151 Level 4 Est. Patient 14:45:00 CLINICAL TRIALS SPECIALIST Ahmet Carbajal MD [facility] CPT-01347 Level 3 Est. Patient 13:59:59 CDT Luigi Martínez [facility] CPT-46487 Level 3 Est. Patient 18:18:53 CDT Neeraj Collins MD [facility] CPT-14710 Level 3 Est. Patient 15:50:44 CDT Vishal Hui MD [facility] CPT-93417 Level 3 Est. Patient 11:36:17 CDT Ahmet Carbajal MD [facility] CPT-36149 Level 3 Est. Patient 13:29:16 CDT Vishal Hui MD [facility] CPT-01918 Level 3 Est. Patient 14:27:52 CDT Neeraj Collins MD [facility] CPT-75092 Level 3 Est. Patient 08:56:03 CDT Luigi Martínez [facility] CPT-67072 Level 4 Est. Patient 12:11:48 CDT Fabiola Johnson [facility] CPT-29944 Level 3 New Patient 16:53:37 CDT Albert Caldera MD [facility] CPT-70560 Level 3 Est. Patient 11:25:49 CDT Renzo Thornton DO [facility] CPT-96153 Level 3 Est. Patient 15:22:01 CDT Ahmet Carbajal MD [facility] CPT-16515 Level 4 Est. Patient 09:00:51 CLINICAL TRIALS SPECIALIST Vishal Hui MD [facility] CPT-97444 Level 3 Est. Patient 11:37:33 CLINICAL TRIALS SPECIALIST Vishal Hui MD [facility] CPT-84854 Level 3 Est. Patient 08:41:09 CLINICAL TRIALS SPECIALIST Vishal uHi MD [facility] CPT-58238 Level 4 Est. Patient 10:19:35 CLINICAL TRIALS SPECIALIST Vishal Hui MD [facility] CPT-39126 Level 3 Est. Patient 13:35:45 CDT Vishal Hui MD [facility] CPT-99068 Level 4 Est. Patient 10:08:37 CDT Vishal Hui MD [facility] CPT-88244 Level 3 Est. Patient 11:22:10 CDT Vishal Hui MD [facility] CPT-05809 Level 3 Est. Patient 11:03:32 CDT Sahara Rodriguez MD PhD [facility] CPT-60213 Level 3 Est. Patient 09:41:35 CDT Vishal Hui MD [facility]-66548 Level 3 Est. Patient 12:00:41 CDT Neeraj Collins MD [facility] CPT-94044 Level 3 Est. Patient 09:16:24 CDT Vishal Hui MD [facility] CPT-71844 Level 4 Est. Patient 13:59:09 CDT Neeraj Collins MD [facility] CPT-66734 Level 3 Est. Patient 15:19:43 CDT Renzo Thornton [facility] CPT-84471 Level 3 Est. Patient 18:10:26 CDT Sahara Rodriguez MD PhD [facility] CPT-29489 Level 3 Est. Patient 14:49:50 CDT Vishal Hui MD [facility] CPT-52814 Level 4 Est. Patient 18:41:46 CDT Neeraj Collins MD [facility] CPT-26612 Level 4 Est. Patient 09:18:38 CLINICAL TRIALS SPECIALIST Vishal Hui MD [facility] CPT-86807 Level 3 Est. Patient 14:43:55 CLINICAL TRIALS SPECIALIST Vishal Hui MD [facility] CPT-06817 Level 3 Est. Patient 15:26:33 CLINICAL TRIALS SPECIALIST Sahara Rodriguez MD PhD [facility] CPT-94046 Level 3 Est. Patient 10:32:14 CLINICAL TRIALS SPECIALIST Vishal Hui MD [facility] CPT-86077 Level 3 Est. Patient 15:12:52 CLINICAL TRIALS SPECIALIST Vishal Hui MD [facility] CPT-81330 Level 4 Est. Patient 09:19:27 CDT Vishal Hui MD [facility] CPT-80352 Level 3 Est. Patient 15:53:00 CDT Renzo Thornton [facility] CPT-74006 Level 3 Est. Patient 15:50:30 CDT Renzo Thornton [facility] CPT-61994 Level 3 Est. Patient 16:55:24 CDT Vishal Hui MD [facility] Procedures Code Procedure Name Date Entry Date Standard Description CPT-G0439 [facility] Annual Wellness Exam 09:30:58 [employer]ICAL TRIALS SPECIALIST CPT-50108 TSH - LAB USE ONLY 08:50:26 CLINICAL TRIALS SPECIALIST CPT-09131 CBC - LAB USE ONLY 08:50:26 CLINICAL TRIALS SPECIALIST CPT-72874 Venipuncture Draw Fee 08:50:26 CLINICAL TRIALS SPECIALIST CPT-69378 Abx/Therapy Injection 17:34:30 CLINICAL TRIALS SPECIALIST CPT-71949 Nexplanon Removal with Reinsertion 14:09:32 CDT CPT-J7307 Nexplanon (Implant) 14:09:32 CDT CPT-OV Office Visit 14:09:32 CDT CPT-89256 UA w micro - LAB USE ONLY 16:21:13 CDT CPT-34477 Wet Mount - LAB USE ONLY 16:21:13 CDT CPT-42235 First Vx - Ix admin for Medicare patients 14:37:47 CDT CPT-99381 Fluzone Preservative Free Intramuscular Suspension 14:37 :47 CDT CPT-91872 Abx/Therapy Injection 13:54:22 CDT CPT-56814 Abx/Therapy Injection 08:47:09 CDT CPT-52018 Abx/Therapy Injection 13:29:56 CDT CPT-94565 Abx/Therapy Injection 08:36:16 CDT CPT-22758 Wet Mount - LAB USE ONLY 17:44:58 CDT CPT-91203 UA w micro - LAB USE ONLY 17:44:58 CDT CPT-07279 CMP - LAB USE ONLY 17:44:58 CDT CPT-00154 Venipuncture Draw Fee 17:44:58 CDT CPT-87955 Cervical Min 4V - XRAY USE ONLY 09:01:40 CDT CPT-91854 Chest 2V Frontal and Lat - XRAY USE ONLY 11:06:31 CDT CPT-05739 EKG Trac and Interp - XRAY USE ONLY 11:31:43 CDT 08/26 CPT-J3420 Vitamin B12 1000mcg (Cyanocobalamin) 08:10:26 CLINICAL TRIALS SPECIALIST 04/12 CPT-67261 Abx/Therapy Injection 08:10:26 CLINICAL TRIALS SPECIALIST CPT-G0438 Initial Annual Wellness Exam 19:01:01 CLINICAL TRIALS SPECIALIST CPT-J3420 Vitamin B12 1000mcg (Cyanocobalamin) 16:57:46 CDT 08/14 CPT-00006 Recombivax HB Injection Suspension 5 MCG/0.5ML 08:37:50 CLINICAL TRIALS SPECIALIST CPT-40695 Immunization Single Admin 08:37:50 CLINICAL TRIALS SPECIALIST CPT-J3420 Vitamin B12 1000mcg (Cyanocobalamin) 08:32:16 CLINICAL TRIALS SPECIALIST 03/11 CPT-49474 Abx/Therapy Injection 08:32:16 CLINICAL TRIALS SPECIALIST CPT-92826 Chest 2V Frontal and Lat 11:46:38 CLINICAL TRIALS SPECIALIST CPT-53861 Venipuncture Draw Fee 09:12:45 CLINICAL TRIALS SPECIALIST CPT-J3420 Vitamin B12 1000mcg (Cyanocobalamin) 08:50:15 CLINICAL TRIALS SPECIALIST 02/08 CPT-20801 Abx/Therapy Injection 08:50:15 CLINICAL TRIALS SPECIALIST CPT-Cryo Cryotherapy 10:19:35 CLINICAL TRIALS SPECIALIST CPT-000 Give Appropriate Flu Vaccine 09:22:16 CDT CPT-J3420 Vitamin B12 1000mcg (Cyanocobalamin) 19:08:57 CDT 01/11 CPT-80745 Abx/Therapy Injection 19:08:57 CDT CPT-J3420 Vitamin B12 1000mcg (Cyanocobalamin) 08:19:08 CDT 12/11 CPT-62140 Abx/Therapy Injection 08:19:08 CDT CPT-J3420 Vitamin B12 1000mcg (Cyanocobalamin) 14:48:00 CDT 11/09 CPT-99573 Abx/Therapy Injection 14:47:59 CDT CPT-J3420 Vitamin B12 1000mcg (Cyanocobalamin) 08:34:04 CDT 10/09 CPT-28334 Abx/Therapy Injection 08:34:04 CDT CPT-J3420 Vitamin B12 1000mcg (Cyanocobalamin) 09:18:52 CDT 09/11 CPT-13490 Abx/Therapy Injection 09:18:52 CDT CPT-J3420 Vitamin B12 1000mcg (Cyanocobalamin) 08:35:44 CDT 09/04 CPT-04752 Abx/Therapy Injection 08:35:44 CDT CPT-68186 Immunization Single Admin 11:07:16 CDT CPT-15626 Hepatitis B adult IM 11:07:16 CDT CPT-J3420 Vitamin B12 1000mcg (Cyanocobalamin) 11:00:49 CDT 08/28 CPT-J1040 Depo Medrol 80 mg (Methyl Prednisolone Acetate) 11:00: 49 CDT CPT-28180 Abx/Therapy Injection 11:00:49 CDT CPT-J1040 Depo Medrol 80 mg (Methyl Prednisolone Acetate) 09:16: 23 CDT CPT-J3420 Vitamin B12 1000mcg (Cyanocobalamin) 08:27:05 CDT 08/20 CPT-03100 Abx/Therapy Injection 08:27:05 CDT CPT-15912 Recombivax HB Injection Suspension 5 MCG/0.5ML 10:00:41 CDT CPT-51673 Administration single or combination vaccine inc oral 10 :00:41 CDT CPT-81546 Sono transvag pelvis non OB uterus ovaries cervix 16:36: 57 CDT CPT-53227 LS spine comp w obliq 09:50:55 CLINICAL TRIALS SPECIALIST CPT-50533 Abd compl w upright 09:50:55 CLINICAL TRIALS SPECIALIST CPT-J1100 Decadron 4mg (Dexamethasone) 15:51:24 CLINICAL TRIALS SPECIALIST CPT-J1030 Depo Medrol 40 mg (Methyl Prednisolone Acetate) 15:51: 24 CLINICAL TRIALS SPECIALIST CPT-29478 Abx/Therapy Injection 15:51:24 CLINICAL TRIALS SPECIALIST CPT-J1100 Decadron 4mg (Dexamethasone) 15:26:33 CLINICAL TRIALS SPECIALIST CPT-J1030 Depo Medrol 40 mg (Methyl Prednisolone Acetate) 15:26: 33 CLINICAL TRIALS SPECIALIST CPT-18752 Sono retroperitoneal complete kidneys and bladder 17:15: 30 CDT CPT-27254 Abd compl w upright 16:09:25 CDT CPT-J1100 Decadron 8mg (Dexamethasone) 17:07:57 CDT CPT-40548 Abx/Therapy Injection 17:07:57 CDT CPT-J1100 Decadron 8mg (Dexamethasone) 16:55:24 CDT CPT-40624 Chest 2V Frontal and Lat 16:32:44 CDT
--- OUTSIDE RECORDS SUMMARY | 2016-11-04 22:03 | XMS REPORT | Clinical Summary ---
Author Author Admin, Dereck Organization [facility] [employer] Address Unknown Phone Unavailable Allergies, [...] sites Morbid obesity 278.01 Active Juliet Kimbrough CINDER BLOCK MAKER Morbid obesity 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 Active Juliet Kimbrough CINDER BLOCK MAKER Dependence on other enabling machines and [...] Shortness of breath 786.05 Active Fabiola Johnson CINDER BLOCK MAKER Shortness of breath Nocturnal hypoxia 799.02 Active Fabiola Johnson CINDER BLOCK MAKER Hypoxemia Neck pain 723.1 Active Luigi Martínez CINDER BLOCK MAKER Cervicalgia Vaginal discharge 623.5 Active Neeraj Collins [...] Inactive Vishal Hui MD Vaginitis ICD-616.10 Jim uHi MD 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 Inactive Vishal Hui [...] TABS take as directed 2015 VARENICLINE TARTRATE 62860944053 Active Ahmet Carbajal MD Active CHANTIX 1 MG TABS 1 twice a day to help quit smoking VARENICLINE TARTRATE 50111139121 Active Ahmet Carbajal MD Active HYDROCODONE-ACETAMINOPHEN 5-325 MG TABS 1 to 2 four times a day as needed for pain use until can be seen by specialist HYDROCODONE- ACETAMINOPHEN 46165965022 No Longer Active Vishal Hui MD Active PROAIR HFA 108 (90 BASE) MCG/ACT AERS 2 puffs four times a day as needed 2015 ALBUTEROL SULFATE 88617082064 No Longer Active Vishal Hui MD Active PREDNISONE 20 MG TABS 2 daily for 5 days then 1 daily for 5 days PREDNISONE 03824492002 No Longer Active Vishal Hui MD Active ZITHROMAX Z-EARNEST 250 MG TABS 2 today and then 1 daily for 4 days AZITHROMYCIN 89657079048 No Longer Active Vishal Hui MD Active DICLOFENAC SODIUM 50 MG TBEC 1 tablet by mouth four times daily PRN Pain 2015 DICLOFENAC SODIUM 96638240439 Active Vishal Hui MD Active DICLOFENAC POTASSIUM TABS Take 1 tablet twice a day (pt. is not sure of the dose.) DICLOFENAC POTASSIUM TABS 44587912558 No Longer Active Vishal Hui MD Active VERAPAMIL HCL ER 120 MG ORAL CR-TABS Take 1 tablet by mouth twice a day. VERAPAMIL HCL 62615609064 Active Vishal Hui MD Active FLAGYL 500 MG TAB 1 tablet by mouth bid METRONIDAZOLE 53505156830 No Longer Active Vishal Hui MD Active ABILIFY MAINTENA 400 MG IM SUSR 400mg injection every 28 days ARIPIPRAZOLE 22827273051 Active Silvia Ervinum SURVEILLANCE ANALYST Active FLUTICASONE PROPIONATE 50 MCG/ACT SUSP 2 sprays each nostril daily before bed. FLUTICASONE PROPIONATE 18277876669 Active Fabiola Johnson APRN Active ADZENYS XR-ODT 6.3 MG ORAL TBED 1 tab po daily for ADHD AMPHETAMINE 60742800810 Active Fabiola Johnson APRN Active BENADRYL 25 MG CAP 4 po at bedtime for insomnia DIPHENHYDRAMINE HCL 63611241569 Active Fabiola Johnson APRN Active KLONOPIN 1 MG ORAL TABS 1 tab po TID CLONAZEPAM 15085002723 Active Fabiola Johnson APRN Active VALIUM 5 MG TAB Take 1-2 tablets daily DIAZEPAM 76046170099 No Longer Active Fabiola Johnson APRN Active METOPROLOL TARTRATE 25 MG ORAL TABS 1/2 tablet twice daily for heart rate and blood pressure METOPROLOL TARTRATE 74393696627 No Longer Active Fabiola Johnson APRN Active MIRALAX ORAL POWD 17GMS DAILY IN WATER POLYETHYLENE GLYCOL 3350 66564922626 Active Vishal Hui MD Active VIIBRYD 10 MG ORAL TABS Take 1 tablet once a day VILAZODONE HCL 86861909764 Active Ahmet Carbajal MD Active MIRALAX PACK 1 po qd PRN Constipation POLYETHYLENE GLYCOL 3350 92737771946 No Longer Active Ahmet Carbajal MD Active MINIPRESS 2 MG CAPS 4 cap po at night PRAZOSIN HCL 92012495653 No Longer Active Ahmet Carbajal MD Active PIROXICAM 20 MG CAPS 1 cap po qd PRN Pain PIROXICAM 54512422679 No Longer Active Ahmet Carbajal MD Active TRAMADOL HCL 50 MG TABS 1-2 po TID PRN Pain TRAMADOL HCL 37887532711 No Longer Active Ahmet Carbajal MD Active METOPROLOL TARTRATE 50 MG TAB 1 po bid METOPROLOL TARTRATE 18006802756 No Longer Active Ahmet Carbajal MD Active ABILIFY 15 MG ORAL TABS 1 tab daily ARIPIPRAZOLE 90424297574 No Longer Active Ahmet Carbajal MD Active PROZAC 20 MG ORAL CAPS 1 tab daily FLUOXETINE HCL 75807798922 No Longer Active Ahmet Carbajal MD Active AMBIEN 5 MG ORAL TABS 1 tab at bedtime ZOLPIDEM TARTRATE 97509071285 No Longer Active Ahmet Carbajal MD Active PREDNISONE 20 MG TAB 2 tabs daily for 4 days, 1 tab daily for 4 days, 1/2 tab daily for 4 days PREDNISONE 44663785987 No Longer Active Ahmet Carbajal MD Active KEFLEX 500 MG CAP 1 po TID x 10 days CEPHALEXIN 33316948365 No Longer Active Vishal Hui MD Active IMITREX 50 MG ORAL TABS 1/2 tab every 6 hours prn SUMATRIPTAN SUCCINATE 37529038445 Active Jillina Fralebron NORIEGA Active TOPAMAX 50 MG ORAL TABS 1 tab twice daily TOPIRAMATE 51226586804 Active Vishal Hui MD Active SAPHRIS 5 MG SUBL 1 po bid ASENAPINE MALEATE 38981399232 No Longer Active Luigi Martínez APRN Active LATUDA 80 MG TABS Take one by mouth daily LURASIDONE HCL 42368599557 No Longer Active Luigi Martínez APRN Active AMLODIPINE BESYLATE 5 MG TABS 1 tablet by mouth daily AMLODIPINE BESYLATE 82204477348 No Longer Active Luigi Martínez APRN Active AMITRIPTYLINE HCL 100 MG TAB one at hs AMITRIPTYLINE HCL 10216060752 No Longer Active Vishal Hui MD Active TRAZODONE HCL 100 MG TAB take 1 at bedtime TRAZODONE HCL 81128008167 No Longer Active Vishal Hui MD Active VYVANSE 40 MG CAPS 1 daily, LISDEXAMFETAMINE DIMESYLATE 77178739718 No Longer Active Vishal Hui MD Active IBUPROFEN 600 MG TAB 1 po TID PRN IBUPROFEN 66324459074 No Longer Active Vishal Hui MD Active PROZAC 20 MG CAP Take one by mouth daily FLUOXETINE HCL 63154654206 No Longer Active Vishal Hiu MD Active ZOFRAN 4 MG TABS 1 po q6hr PRN Nausea ONDANSETRON HCL Active Vishal Hui MD Active BACTRIM DS 800-160 MG TABS 1 pill by mouth twice daily SULFAMETHOXAZOLE-TRIMETHOPRIM 67674461549 No Longer Active Sahara Rodriguez MD PhD Active DIFLUCAN 150 MG TAB 1 tablet by mouth daily FLUCONAZOLE 06026783298 No Longer Active Vishal Hui MD Active TIZANIDINE HCL 4 MG TABS 1 po q6hr PRN Muscle Spasm/Back Pain TIZANIDINE HCL 28297378942 Active Vishal Hui MD Active CLINDAMYCIN HCL 150 MG CAPS 1 four times a day CLINDAMYCIN HCL 34500306679 No Longer Active Neeraj Collins MD Active KEFLEX 500 MG ORAL CAPS 1 cap QID by mouth CEPHALEXIN 57116926781 No Longer Active Neeraj Collins MD Active DIFLUCAN 150 MG TABS 1 pill every other day x 2 doses FLUCONAZOLE 23751446158 No Longer Active Sahara Rodriguez MD PhD Active MELATONIN 3 MG CAPS 2 po q hs MELATONIN 33225340556 No Longer Active Sahara Rodriguez MD PhD Active MULTIVITAMINS CAPS Take one by mouth daily MULTIPLE VITAMIN 06571203828 No Longer Active Sahara Rodriguez MD PhD Active BACTRIM DS 800-160 MG TAB 1 tab by mouth twice daily TRIMETHOPRIM-SULFAMETHOXAZOLE 77731915710 No Longer Active Sahara Rodriguez MD PhD Active [facility] PROBIOTIC ORAL CHEW 2 daily po PROBIOTIC PRODUCT 55523027926 No Longer Active Sahara Rodriguez MD PhD Active BACTRIM DS 800-160 MG TABS 1 po BID x 7 days SULFAMETHOXAZOLE-TRIMETHOPRIM 64593755047 No Longer Active Vishal Hui MD Active CHANTIX STARTING MONTH EARNEST 0.5 MG X 11 & 1 MG X 42 TABS 0.5mg daily for 3 days , then 0.5mg BID for 4 days, then 1mg BID VARENICLINE TARTRATE 58786152634 No Longer Active TAMARA Gray Active VERAPAMIL HCL CR 120 MG TAB CR 1 po bid VERAPAMIL HCL 51945127545 No Longer Active Vishal Hui MD Active METOPROLOL SUCCINATE 50 MG TB24 1 tablet by mouth daily METOPROLOL SUCCINATE 00576641385 No Longer Active Vishal Hui MD Active SAPHRIS 10 MG SUBL 1 tab po bid ASENAPINE MALEATE 90187419661 No Longer Active Vishal Hui MD Active LISINOPRIL 20 MG TABS 1 tab po qd LISINOPRIL 94238317783 No Longer Active Vishal Hui MD Active LATUDA 20 MG TABS Take one by mouth daily LURASIDONE HCL 54796709074 No Longer Active Vishal Hui MD Active TRAZODONE HCL 50 MG TABS 1/2 tab po qd prn for anxiety TRAZODONE HCL 83144429470 No Longer Active Vishal Hui MD Active OMEPRAZOLE 20 MG TBEC 1 po q a.m. 30min prior to first food intake OMEPRAZOLE 94186159912 Active Vishal Hui MD Active RANITIDINE HCL 150 MG CAPS 1 twice a day RANITIDINE HCL 51873380841 Active Luigi Martínez APRN Active LINZESS 290 MCG CAPS Take one by mouth daily LINACLOTIDE 97411083788 No Longer Active Vishal Hui MD Active SAPHRIS 5 MG SUBL 1 tab po qd ASENAPINE MALEATE 11644512342 No Longer Active Vishal Hui MD Active ZALEPLON 10 MG CAPS 1 cap po every other night ZALEPLON 41177858590 No Longer Active Vishal Hui MD Active LYRICA 50 MG CAPS 1 tab po TID PREGABALIN 53498099058 No Longer Active Vishal Hui MD Active LORATADINE 10 MG TABS 1 tab po qd LORATADINE 15553927966 No Longer Active Vishal Hui MD Active VERAPAMIL HCL ER 180 MG CR-TABS 1 tab po bid VERAPAMIL HCL 08651824132 No Longer Active Vishal Hui MD Active MIRALAX POWD 1 capfull once daily POLYETHYLENE GLYCOL 3350 04124548944 No Longer Active Vishal Hui MD Active PREDNISONE 20 MG TABS 1 tab po qd PREDNISONE 81430640301 No Longer Active Renzo Thornton DO Active LEVOFLOXACIN 500 MG TABS 1 tab po qd LEVOFLOXACIN 72162646353 No Longer Active Renzo Thornton DO Active BUSPIRONE HCL 15 MG TABS 1 tab po TID BUSPIRONE HCL 57809217966 No Longer Active Renzo Thornton DO Active BENZTROPINE MESYLATE 1 MG TABS 1 tab po qd BENZTROPINE MESYLATE 72209640507 No Longer Active Renzo Thornton DO Active ATENOLOL 25 MG TABS 1 tab po qd ATENOLOL 17254061451 No Longer Active Renzo Thornton DO Active ESCITALOPRAM OXALATE 20 MG TABS 1 tab po qd ESCITALOPRAM OXALATE 43257657085 No Longer Active Renzo Thornton DO Active ADVAIR DISKUS 250-50 MCG/DOSE AEPB 1 puff BID FLUTICASONE-SALMETEROL 54889634491 No Longer Active Renzo Thornton DO Active PREDNISONE 20 MG TAB 2 tabs daily for 3 days, 1 tab daily for 3 days, 1/2 tab daily for 2 days PREDNISONE 48094993017 No Longer Active Vishal Hui MD Active CEFDINIR 300 MG CAPS by mouth twice a day CEFDINIR 71683207683 No Longer Active Vishal Hui MD Active LANSOPRAZOLE 30 MG CPDR 1 cap po qd LANSOPRAZOLE 65532498349 No Longer Active Vishal Hui MD Active BACLOFEN 20 MG TABS 1 tab po tid BACLOFEN 36984353742 No Longer Active Vishal Hui MD Active ADVAIR DISKUS 250-50 MCG/DOSE AEPB 1 puff BID ADVAIR DISKUS 250-50 MCG/DOSE AEPB FLUTICASONE-SALMETEROL Inactive ESCITALOPRAM OXALATE 20 MG TABS 1 tab po qd ESCITALOPRAM OXALATE 20 MG TABS 730034 ESCITALOPRAM OXALATE Inactive ATENOLOL 25 MG TABS 1 tab po qd ATENOLOL 25 MG TABS 440314 ATENOLOL Inactive BENZTROPINE MESYLATE 1 MG TABS 1 tab po qd BENZTROPINE MESYLATE 1 MG TABS 686568 BENZTROPINE MESYLATE Inactive BUSPIRONE HCL 15 MG TABS 1 tab po TID BUSPIRONE HCL 15 MG TABS 019378 BUSPIRONE HCL Inactive LEVOFLOXACIN 500 MG TABS 1 tab po qd LEVOFLOXACIN 500 MG TABS 856381 LEVOFLOXACIN Inactive PREDNISONE 20 MG TABS 1 tab po qd PREDNISONE 20 MG TABS 937841 PREDNISONE Inactive MIRALAX POWD 1 capfull once daily MIRALAX POWD 679221 POLYETHYLENE GLYCOL 3350 Inactive VERAPAMIL HCL ER 180 MG CR-TABS 1 tab po bid VERAPAMIL HCL ER 180 MG CR-TABS VERAPAMIL HCL Inactive LORATADINE 10 MG TABS 1 tab po qd LORATADINE 10 MG TABS 200206 LORATADINE Inactive LYRICA 50 MG CAPS 1 tab po TID LYRICA 50 MG CAPS PREGABALIN Inactive ZALEPLON 10 MG CAPS 1 cap po every other night ZALEPLON 10 MG CAPS 610821 ZALEPLON Inactive SAPHRIS 5 MG SUBL 1 tab po qd SAPHRIS 5 MG SUBL ASENAPINE MALEATE Inactive TRAZODONE HCL 50 MG TABS 1/2 tab po qd prn for anxiety TRAZODONE HCL 50 MG TABS 542509 TRAZODONE HCL Inactive LATUDA 20 MG TABS Take one by mouth daily LATUDA 20 MG TABS LURASIDONE HCL Inactive LISINOPRIL 20 MG TABS 1 tab po qd LISINOPRIL 20 MG TABS 303120 LISINOPRIL Inactive SAPHRIS 10 MG SUBL 1 [...] twice daily BACTRIM DS 800-160 MG TAB 813718 TRIMETHOPRIM-SULFAMETHOXAZOLE Inactive MULTIVITAMINS CAPS Take one by mouth daily MULTIVITAMINS CAPS MULTIPLE VITAMIN Inactive MELATONIN 3 MG CAPS 2 po q hs MELATONIN 3 MG CAPS 393772 MELATONIN Inactive KEFLEX 500 MG ORAL CAPS 1 cap QID by mouth KEFLEX 500 MG ORAL CAPS 012717 CEPHALEXIN Inactive CLINDAMYCIN HCL 150 MG CAPS 1 four times a day CLINDAMYCIN HCL 150 MG CAPS 351654 CLINDAMYCIN HCL Inactive DIFLUCAN 150 MG TAB 1 tablet by mouth daily DIFLUCAN 150 MG TAB 280234 FLUCONAZOLE Inactive PROZAC 20 MG CAP Take one by mouth daily PROZAC 20 MG CAP 568523 FLUOXETINE HCL Inactive IBUPROFEN 600 MG TAB 1 po TID PRN IBUPROFEN 600 MG TAB 778697 IBUPROFEN Inactive VYVANSE 40 MG CAPS 1 daily, VYVANSE 40 MG CAPS LISDEXAMFETAMINE DIMESYLATE Inactive TRAZODONE HCL 100 MG TAB take 1 at bedtime TRAZODONE HCL 100 MG TAB 385714 TRAZODONE HCL Inactive AMITRIPTYLINE HCL 100 MG TAB one at hs AMITRIPTYLINE HCL 100 MG TAB 345969 AMITRIPTYLINE HCL Inactive AMLODIPINE BESYLATE 5 MG TABS 1 tablet by mouth daily AMLODIPINE BESYLATE 5 MG TABS 169797 AMLODIPINE BESYLATE Inactive LATUDA 80 MG TABS Take one by mouth daily LATUDA 80 MG TABS LURASIDONE HCL Inactive SAPHRIS 5 MG SUBL 1 po bid SAPHRIS 5 MG SUBL ASENAPINE MALEATE Inactive PREDNISONE 20 MG TAB 2 tabs daily for 4 days, 1 tab daily for 4 days, 1/2 tab daily for 4 days PREDNISONE 20 MG TAB 204455 PREDNISONE Inactive AMBIEN 5 MG ORAL TABS 1 tab at bedtime AMBIEN 5 MG ORAL TABS 530888 ZOLPIDEM TARTRATE Inactive PROZAC 20 MG ORAL CAPS 1 tab daily PROZAC 20 MG ORAL CAPS 908632 FLUOXETINE HCL Inactive ABILIFY 15 MG ORAL TABS 1 tab daily ABILIFY 15 MG ORAL TABS 141161 ARIPIPRAZOLE Inactive METOPROLOL TARTRATE 50 MG TAB 1 po bid METOPROLOL TARTRATE 50 MG TAB 122318 METOPROLOL TARTRATE Inactive TRAMADOL HCL 50 MG TABS 1-2 po TID PRN Pain TRAMADOL HCL 50 MG TABS 575470 TRAMADOL HCL Inactive PIROXICAM 20 MG CAPS 1 cap po qd PRN Pain PIROXICAM 20 MG CAPS 797095 PIROXICAM Inactive MINIPRESS 2 MG CAPS 4 cap po at night MINIPRESS 2 MG CAPS 867380 PRAZOSIN HCL Inactive MIRALAX PACK 1 po qd PRN Constipation MIRALAX PACK 367086 POLYETHYLENE GLYCOL 3350 Inactive METOPROLOL TARTRATE 25 MG ORAL TABS 1/2 tablet twice daily for heart rate and blood pressure METOPROLOL TARTRATE 25 MG ORAL TABS 362060 METOPROLOL TARTRATE Inactive VALIUM 5 MG TAB Take 1-2 tablets daily VALIUM 5 MG TAB 065866 DIAZEPAM Inactive FLAGYL 500 MG TAB 1 tablet by mouth bid FLAGYL 500 MG TAB 916669 METRONIDAZOLE Inactive DICLOFENAC POTASSIUM TABS Take 1 tablet twice a day (pt. is not sure of the dose.) DICLOFENAC POTASSIUM TABS DICLOFENAC POTASSIUM TABS Inactive ZITHROMAX Z-EARNEST 250 MG TABS 2 today and then 1 daily for 4 days ZITHROMAX Z-EARNEST 250 MG TABS 2574421 AZITHROMYCIN Inactive PREDNISONE 20 MG TABS 2 daily for 5 days then 1 daily for 5 days PREDNISONE 20 MG TABS 164757 PREDNISONE Inactive PROAIR HFA 108 (90 BASE) MCG/ACT AERS 2 puffs four times a day as needed 2015 PROAIR HFA 108 (90 BASE) MCG/ACT AERS ALBUTEROL SULFATE Inactive HYDROCODONE-ACETAMINOPHEN 5-325 MG TABS 1 to 2 four times a day as needed for pain use until can be seen by specialist HYDROCODONE- ACETAMINOPHEN 5-325 MG TABS 490802 HYDROCODONE-ACETAMINOPHEN Inactive CEFDINIR 300 MG CAPS by mouth twice a day CEFDINIR 300 MG CAPS 975127 CEFDINIR Inactive PREDNISONE 20 MG TAB 2 tabs daily for 3 days, 1 tab daily for 3 days, 1/2 tab daily for 2 days PREDNISONE 20 MG TAB 824989 PREDNISONE Inactive BACTRIM DS 800-160 MG TABS 1 po BID x 7 days BACTRIM DS 800-160 MG TABS 196501 SULFAMETHOXAZOLE-TRIMETHOPRIM Inactive DIFLUCAN 150 MG TABS 1 pill every other day x 2 doses DIFLUCAN 150 MG TABS 007849 FLUCONAZOLE Inactive BACTRIM DS 800-160 MG TABS 1 pill by mouth twice daily BACTRIM DS 800-160 MG TABS 158597 SULFAMETHOXAZOLE-TRIMETHOPRIM Inactive KEFLEX 500 MG CAP 1 po TID x 10 days KEFLEX 500 MG CAP 789476 CEPHALEXIN Inactive Advance Directives Directive Description Start [...] % 11.6-14.8 platelet count 394 10^3/MM^3 10*3/mm3 308-776 0808/01/11 leukocyte count, blood 13.8 10^3/MM^3 10*3/mm3 4.6-10.2 [...] Panel - Chemistry sodium, serum 139 mmol/L 555-229 3723/12/03 carbon dioxide, venous blood 28.5 mmol/L 21.0-32.0 [...] 5.5 % 4.3-6.0 cholesterol, serum 159 mg/dL 333-296 5141/12/03 triglyceride, serum, fasting 118 mg/dL 30-200 HDL [...] Panel - Chemistry sodium, serum 139 mmol/L 781-345 7602/12/22 carbon dioxide, venous blood 26.8 mmol/L 21.0-32.0 potassium, serum 4.2 mmol/L 3.5-5.2 chloride, serum 103 mmol/L 98-107 blood glucose 115 mg/dL 65-110 urea nitrogen, blood 20 mg/dL 7-18 creatinine, serum 0.90 mg/dL 0.55-1.30 alanine aminotransferase (SGPT), serum 38 U/L -78 aspartate aminotransferase (SGOT), serum 19 U/L 15-37 calcium, serum 8.6 mg/dL 8.5-10.1 bilirubin, serum, total 0.30 mg/dL 0.00-1.00 sodium, serum 139 mmol/L 324-336 5842/01/11 carbon dioxide, venous blood 26.6 mmol/L 21.0-32.0 potassium, serum 4.1 mmol/L 3.5-5.2 chloride, serum 100 mmol/L 98-107 blood glucose 86 mg/dL 65-110 urea nitrogen, blood 16 mg/dL 7-18 creatinine, serum 1.00 mg/dL 0.55-1.30 alanine aminotransferase (SGPT), serum 48 U/L 78 aspartate aminotransferase (SGOT), serum 17 U/L 15-37 calcium, serum 9.1 mg/dL 8.5-10.1 bilirubin, serum, total 0.40 mg/dL 0.00-1.00 sodium, serum 142 mmol/L 478-232 9095/06/08 carbon dioxide, venous blood 27.6 mmol/L 21.0-32.0 potassium, serum 4.0 mmol/L 3.5-5.2 chloride, serum 105 mmol/L 98-107 blood glucose 95 mg/dL 65-110 urea nitrogen, blood 8 mg/dL 7-18 creatinine, serum 0.75 mg/dL 0.55-1.30 alanine aminotransferase (SGPT), serum 49 U/L - aspartate aminotransferase (SGOT), serum 28 U/L 15-37 calcium, serum 9.4 mg/dL 8.5-10.1 bilirubin, serum, total 0.30 mg/dL 0.00-1.00 sodium, serum 140 mmol/L 851-330 9735/08/08 carbon dioxide, venous blood 33.7 mmol/L 21.0-32.0 [...] Rate - Chemistry sodium, serum 139 mmol/L 994-976 0467/12/11 carbon dioxide, venous blood 25.4 mmol/L 21.0-32.0 [...] mg/dL Encounters Code Encounter Date Provider Facility CPT-65909 Level 3 Est. Patient 11:36:17 CDT Ahmet Carbajal MD [facility] CPT-02020 Level 3 Est. Patient 13:29:16 CDT Vishal Hui MD [facility] CPT-33649 Level 3 Est. Patient 14:27:52 CDT Neeraj Collins MD [facility] CPT-57986 Level 3 Est. Patient 08:56:03 CDT Luigi Martínez APRN [facility] CPT-08984 Level 4 Est. Patient 12:11:48 CDT Fabiola Johnson APRN [facility] CPT-73684 Level 3 New Patient 16:53:37 CDT Albert Caldera MD [facility] CPT-97958 Level 3 Est. Patient 11:25:49 CDT Renzo Thornton DO [facility] CPT-82347 Level 3 Est. Patient 15:22:01 CDT Ahmet Carbajal MD [facility] CPT-72173 Level 4 Est. Patient 09:00:51 RUBBER WORKER Vishal Hui MD [facility] CPT-04301 Level 3 Est. Patient 11:37:33 RUBBER WORKER Vishal Hui MD [facility] CPT-94081 Level 3 Est. Patient 08:41:09 RUBBER WORKER Vishal Hui MD [facility] CPT-96220 Level 4 Est. Patient 10:19:35 RUBBER WORKER Vishal Hui MD [facility] CPT-63573 Level 3 Est. Patient 13:35:45 CDT Vishal Hui MD [facility] CPT-39118 Level 4 Est. Patient 10:08:37 CDT Vishal Hui MD [facility] CPT-25925 Level 3 Est. Patient 11:22:10 CDT Vishal Hui MD [facility] CPT-77354 Level 3 Est. Patient 11:03:32 CDT Sahara Rodriguez MD PhD [facility] CPT-82611 Level 3 Est. Patient 09:41:35 CDT Vishal Hui MD [facility] CPT-36979 Level 3 Est. Patient 12:00:41 CDT Neeraj Collins MD [facility] CPT-14750 Level 3 Est. Patient 09:16:24 CDT Vishal Hui MD [facility] CPT-79948 Level 4 Est. Patient 13:59:09 CDT Neeraj Collins MD [facility] CPT-60905 Level 3 Est. Patient 15:19:43 CDT Renzo Thornton [facility] CPT-39672 Level 3 Est. Patient 18:10:26 CDT Sahara Rodriguez MD [facility] CPT-91810 Level 3 Est. Patient 14:49:50 CDT Vishal Hui MD [facility] CPT-72932 Level 4 Est. Patient 18:41:46 CDT Neeraj Collins MD [facility] CPT-73399 Level 4 Est. Patient 09:18:38 RUBBER WORKER Vishal Hui MD [facility] CPT-60264 Level 3 Est. Patient 14:43:55 RUBBER WORKER Vishal Hui MD [facility] CPT-42299 Level 3 Est. Patient 15:26:33 RUBBER WORKER Sahara Rodriguez MD PhD [facility] CPT-67096 Level 3 Est. Patient 10:32:14 RUBBER WORKER Vishal Hui MD [facility] CPT-83338 Level 3 Est. Patient 15:12:52 RUBBER WORKER Vishal Hui MD [facility] CPT-68512 Level 4 Est. Patient 09:19:27 CDT Vishal Hui MD [facility] CPT-92787 Level 3 Est. Patient 15:53:00 CDT Renzo Thornton [facility] CPT-02264 Level 3 Est. Patient 15:50:30 CDT Renzo Thornton [facility] CPT-07194 Level 3 Est. Patient 16:55:24 CDT Vishal Hui MD [facility] Procedures Code Procedure Name Date Entry Date Standard Description CPT-35116 Abx/Therapy Injection 08:47:09 CDT CPT-81422 Abx/Therapy Injection 13:29:56 CDT CPT-34681 Abx/Therapy Injection 08:36:16 CDT CPT-11953 Wet Mount - LAB USE ONLY 17:44:58 CDT CPT-42104 UA w micro - LAB USE ONLY 17:44:58 CDT CPT-34195 CMP - LAB USE ONLY 17:44:58 CDT CPT-56106 Venipuncture Draw Fee 17:44:58 CDT CPT-74265 Cervical Min 4V - XRAY USE ONLY 09:01:40 CDT CPT-02408 Chest 2V Frontal and Lat - XRAY USE ONLY 11:06:31 CDT CPT-98648 EKG Trac and Interp - XRAY USE ONLY 11:31:43 CDT 08/26 CPT-J3420 Vitamin B12 1000mcg (Cyanocobalamin) 08:10:26 RUBBER WORKER 04/12 CPT-57939 Abx/Therapy Injection 08:10:26 RUBBER WORKER CPT-G0438 Initial Annual Wellness Exam 19:01:01 RUBBER WORKER CPT-J3420 Vitamin B12 1000mcg (Cyanocobalamin) 16:57:46 CDT 08/14 CPT-17690 Recombivax HB Injection Suspension 5 MCG/0.5ML 08:37:50 RUBBER WORKER CPT-32787 Immunization Single Admin 08:37:50 RUBBER WORKER CPT-J3420 Vitamin B12 1000mcg (Cyanocobalamin) 08:32:16 RUBBER WORKER 03/11 CPT-83788 Abx/Therapy Injection 08:32:16 RUBBER WORKER CPT-32277 Chest 2V Frontal and Lat 11:46:38 RUBBER WORKER CPT-08757 Venipuncture Draw Fee 09:12:45 RUBBER WORKER CPT-J3420 Vitamin B12 1000mcg (Cyanocobalamin) 08:50:15 RUBBER WORKER 02/08 CPT-16479 Abx/Therapy Injection 08:50:15 RUBBER WORKER CPT-Cryo Cryotherapy 10:19:35 RUBBER WORKER CPT-000 Give Appropriate Flu Vaccine 09:22:16 CDT CPT-J3420 Vitamin B12 1000mcg (Cyanocobalamin) 19:08:57 CDT 01/11 CPT-08570 Abx/Therapy Injection 19:08:57 CDT CPT-J3420 Vitamin B12 1000mcg (Cyanocobalamin) 08:19:08 CDT 12/11 CPT-43221 Abx/Therapy Injection 08:19:08 CDT CPT-J3420 Vitamin B12 1000mcg (Cyanocobalamin) 14:48:00 CDT 11/09 CPT-69052 Abx/Therapy Injection 14:47:59 CDT CPT-J3420 Vitamin B12 1000mcg (Cyanocobalamin) 08:34:04 CDT 10/09 CPT-52707 Abx/Therapy Injection 08:34:04 CDT CPT-J3420 Vitamin B12 1000mcg (Cyanocobalamin) 09:18:52 CDT 09/11 CPT-65682 Abx/Therapy Injection 09:18:52 CDT CPT-J3420 Vitamin B12 1000mcg (Cyanocobalamin) 08:35:44 CDT 09/04 CPT-56873 Abx/Therapy Injection 08:35:44 CDT CPT-72840 Immunization Single Admin 11:07:16 CDT CPT-49810 Hepatitis B adult IM 11:07:16 CDT CPT-J3420 Vitamin B12 1000mcg (Cyanocobalamin) 11:00:49 CDT 08/28 CPT-J1040 Depo Medrol 80 mg (Methyl Prednisolone Acetate) 11:00: 49 CDT CPT-93236 Abx/Therapy Injection 11:00:49 CDT CPT-J1040 Depo Medrol 80 mg (Methyl Prednisolone Acetate) 09:16: 23 CDT CPT-J3420 Vitamin B12 1000mcg (Cyanocobalamin) 08:27:05 CDT 08/20 CPT-65012 Abx/Therapy Injection 08:27:05 CDT CPT-35766 Recombivax HB Injection Suspension 5 MCG/0.5ML 10:00:41 CDT CPT-97949 Administration single or combination vaccine inc oral 10 :00:41 CDT CPT-44202 Sono transvag pelvis non OB uterus ovaries cervix 16:36: 57 CDT CPT-52073 LS spine comp w obliq 09:50:55 [employer] WORK[employer] CPT-19796 Abd compl w upright 09:50:55 [employer]ER 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 CPT-J1100 Decadron 4mg (Dexamethasone) 15:51:24 [employer] WORKER CPT-J1030 Depo Medrol 40 mg (Methyl Prednisolone Acetate) 15:51: 24 [employer] WORK[employer] CPT-42495 Abx/Therapy Injection 15:51:24 [employer]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
--- OUTSIDE RECORDS SUMMARY | 2016-11-04 22:04 | XMS REPORT | Clinical Summary ---
Author Author Admin, E Organization [employer] Address Unknown Phone Unavailable Allergies, Adverse Reactions, [...] ORAL CHEW 2 daily po PROBIOTIC PRODUCT 20736694452 Active Jillina Frazell [employer] Active IBUPROFEN 600 MG TAB 1 po TID PRN IBUPROFEN 26426985503 Active Jillina Frazell [employer] Active BACTRIM DS 800-160 MG TAB 1 tab by mouth twice daily TRIMETHOPRIM-SULFAMETHOXAZOLE 59051123043 Active Neeraj Collins MD Active BACTRIM DS 800-160 MG TABS 1 po BID x 7 days SULFAMETHOXAZOLE-TRIMETHOPRIM 34950984383 No Longer Active Vishal Hui MD Active CHANTIX STARTING MONTH EARNEST 0.5 MG X 11 & 1 MG X 42 TABS 0.5mg daily for 3 days , then 0.5mg BID for 4 days, then 1mg BID VARENICLINE TARTRATE 62429243797 No Longer Active TAMARA Gray Active METOPROLOL TARTRATE 50 MG TAB 1 po bid METOPROLOL TARTRATE 36110361248 Active Vishal Hui MD Active TRAZODONE HCL 100 MG TAB take 1 at bedtime TRAZODONE HCL 43086187139 Active Vishal Hui MD Active AMLODIPINE BESYLATE 5 MG TABS 1 tablet by mouth daily AMLODIPINE BESYLATE 76376331402 Active Vishal Hui MD Active VERAPAMIL HCL CR 120 MG TAB CR 1 po bid VERAPAMIL HCL 86183360366 No Longer Active Vishal Hui MD Active METOPROLOL SUCCINATE 50 MG TB24 1 tablet by mouth daily METOPROLOL SUCCINATE 07293226406 No Longer Active Vishal Hui MD Active TRAMADOL HCL 50 MG TABS 1-2 po TID PRN Pain TRAMADOL HCL 22595359820 Active Vishal Hui MD Active SAPHRIS 5 MG SUBL 1 po bid ASENAPINE MALEATE 71241417167 Active Vishal Hui MD Active SAPHRIS 10 MG SUBL 1 tab po bid ASENAPINE MALEATE 52622855541 No Longer Active Vishal Hui MD Active LISINOPRIL 20 MG TABS 1 tab po qd LISINOPRIL 15309056081 No Longer Active Vishal Hui MD Active BENADRYL 25 MG CAP 2 po tid prn anxiety DIPHENHYDRAMINE HCL 53281643825 Active Vishal Hui MD Active LATUDA 80 MG TABS Take one by mouth daily LURASIDONE HCL 21962268974 Active Vishal Hui MD Active LATUDA 20 MG TABS Take one by mouth daily LURASIDONE HCL 53155695964 No Longer Active Vishal Hui MD Active TRAZODONE HCL 50 MG TABS 1/2 tab po qd prn for anxiety TRAZODONE HCL 51151106714 No Longer Active Vishal Hui MD Active PIROXICAM 20 MG CAPS 1 cap po qd PRN Pain PIROXICAM 94803097102 Active Vishal Hui MD Active OMEPRAZOLE 20 MG TBEC 1 po q a.m. 30min prior to first food intake OMEPRAZOLE 72822854076 Active Vishal Hui MD Active RANITIDINE HCL 150 MG CAPS 1 twice a day RANITIDINE HCL 99286678737 Active Vishal Hui MD Active MULTIVITAMINS CAPS Take one by mouth daily MULTIPLE VITAMIN 28836372026 Active Vishal Hui MD Active MELATONIN 3 MG CAPS 2 po q hs MELATONIN 54176066748 Active Vishal Hui MD Active PROZAC 20 MG CAP Take one by mouth daily FLUOXETINE HCL 59587483485 Active Vishal Hui MD Active LINZESS 290 MCG CAPS Take one by mouth daily LINACLOTIDE 61165589316 Active Vishal Hui MD Active SAPHRIS 5 MG SUBL 1 tab po qd ASENAPINE MALEATE 15955116253 No Longer Active Vishal Hui MD Active ZALEPLON 10 MG CAPS 1 cap po every other night ZALEPLON 72122916039 No Longer Active Vishal Hui MD Active LYRICA 50 MG CAPS 1 tab po TID PREGABALIN 88431537788 No Longer Active Vishal Hui MD Active LORATADINE 10 MG TABS 1 tab po qd LORATADINE 51495011973 No Longer Active Vishal Hui MD Active VERAPAMIL HCL ER 180 MG CR-TABS 1 tab po bid VERAPAMIL HCL 63665591260 No Longer Active Vishal Hui MD Active MIRALAX POWD 1 capfull once daily POLYETHYLENE GLYCOL 3350 98927855304 No Longer Active Vishal Hui MD Active PREDNISONE 20 MG TABS 1 tab po qd PREDNISONE 15736122519 No Longer Active Renzo Thornton DO Active LEVOFLOXACIN 500 MG TABS 1 tab po qd LEVOFLOXACIN 32319037521 No Longer Active Renzo Thornton DO Active BUSPIRONE HCL 15 MG TABS 1 tab po TID BUSPIRONE HCL 40677183426 No Longer Active Renzo Thornton DO Active BENZTROPINE MESYLATE 1 MG TABS 1 tab po qd BENZTROPINE MESYLATE 62187847998 No Longer Active Renzo Thornton DO Active ATENOLOL 25 MG TABS 1 tab po qd ATENOLOL 42787809293 No Longer Active Renzo Thonrton DO Active ESCITALOPRAM OXALATE 20 MG TABS 1 tab po qd ESCITALOPRAM OXALATE 79492453129 No Longer Active Renzo Thornton DO Active ADVAIR DISKUS 250-50 MCG/DOSE AEPB 1 puff BID FLUTICASONE-SALMETEROL 80673698371 No Longer Active Renzo Thornton DO Active PREDNISONE 20 MG TAB 2 tabs daily for 3 days, 1 tab daily for 3 days, 1/2 tab daily for 2 days PREDNISONE 21999010307 No Longer Active Vishal Hui MD Active CEFDINIR 300 MG CAPS by mouth twice a day CEFDINIR 98251199846 No Longer Active Vishal Hui MD Active LANSOPRAZOLE 30 MG CPDR 1 cap po qd LANSOPRAZOLE 26622354112 No Longer Active Vishal Hui MD Active TOPAMAX 25 MG TABS 1 tab po bid TOPIRAMATE 71008639875 Active Vishal Hui MD Active MINIPRESS 2 MG CAPS 1 cap po at night PRAZOSIN HCL 59100247550 Active Vishal Hui MD Active BACLOFEN 20 MG TABS 1 tab po tid BACLOFEN 09453485541 Active Vishal Hui MD Active ADVAIR DISKUS 250-50 MCG/DOSE AEPB 1 puff BID ADVAIR DISKUS 250-50 MCG/DOSE AEPB FLUTICASONE-SALMETEROL Inactive ESCITALOPRAM OXALATE 20 MG TABS 1 tab po qd ESCITALOPRAM OXALATE 20 MG TABS 213164 ESCITALOPRAM OXALATE Inactive ATENOLOL 25 MG TABS 1 tab po qd ATENOLOL 25 MG TABS 619509 ATENOLOL Inactive BENZTROPINE MESYLATE 1 MG TABS 1 tab po qd BENZTROPINE MESYLATE 1 MG TABS 826329 BENZTROPINE MESYLATE Inactive BUSPIRONE HCL 15 MG TABS 1 tab po TID BUSPIRONE HCL 15 MG TABS 229699 BUSPIRONE HCL Inactive LEVOFLOXACIN 500 MG TABS 1 tab po qd LEVOFLOXACIN 500 MG TABS 992979 LEVOFLOXACIN Inactive PREDNISONE 20 MG TABS 1 tab po qd PREDNISONE 20 MG TABS 624771 PREDNISONE Inactive MIRALAX POWD 1 capfull once daily MIRALAX POWD 214283 POLYETHYLENE GLYCOL 3350 Inactive VERAPAMIL HCL ER 180 MG CR-TABS 1 tab po bid VERAPAMIL HCL ER 180 MG CR-TABS VERAPAMIL HCL Inactive LORATADINE 10 MG TABS 1 tab po qd LORATADINE 10 MG TABS 608928 LORATADINE Inactive LYRICA 50 MG CAPS 1 tab po TID LYRICA 50 MG CAPS PREGABALIN Inactive ZALEPLON 10 MG CAPS 1 cap po every other night ZALEPLON 10 MG CAPS 856445 ZALEPLON Inactive SAPHRIS 5 MG SUBL 1 tab po qd SAPHRIS 5 MG SUBL ASENAPINE MALEATE Inactive TRAZODONE HCL 50 MG TABS 1/2 tab po qd prn for anxiety TRAZODONE HCL 50 MG TABS 169380 TRAZODONE HCL Inactive LATUDA 20 MG TABS Take one by mouth daily LATUDA 20 MG TABS LURASIDONE HCL Inactive LISINOPRIL 20 MG TABS 1 tab po qd LISINOPRIL 20 MG TABS 472107 LISINOPRIL Inactive SAPHRIS 10 MG SUBL 1 [...] twice a day CEFDINIR 300 MG CAPS 373457 CEFDINIR Inactive PREDNISONE 20 MG TAB 2 tabs daily for 3 days, 1 tab daily for 3 days, 1/2 tab daily for 2 days PREDNISONE 20 MG TAB 544456 PREDNISONE Inactive BACTRIM DS 800-160 MG TABS [...] U/L Chart Maintenance: outside labs entered on [employer] - Hematology leukocyte count, blood 8.9 10*3/mm3 hemoglobin, blood 13.2 g/dL platelet count 364 10*3/mm3 Lab Report: Comp. Metabolic Panel, Lipid Panel - Chemistry sodium, serum 139 mmol/L 203-006 4584/12/31 potassium, serum 4.8 mmol/L 3.5-5.2 chloride, serum 106 mmol/L 98-107 carbon dioxide, venous blood 24.3 mmol/L 21.0-32.0 blood glucose 90 mg/dL 65-110 urea nitrogen, blood 16 mg/dL 7-18 creatinine, serum 1.00 mg/dL 0.60-1.30 alanine aminotransferase (SGPT), serum 41 U/L 12-78 aspartate aminotransferase (SGOT), serum 17 U/L 15-37 calcium, serum 8.6 mg/dL 8.5-10.1 bilirubin, serum, total 0.30 mg/dL 0.00-1.00 cholesterol, serum 108 mg/dL 088-793 0154/12/31 triglyceride, serum, fasting 120 mg/dL 30-200 HDL [...] urine Clear Clear urine color Yellow Colorless;Lightyellow;Straw;Yellow Lab Report: UADIP W/MICRO, AUTO, [facility] [place] - Chemistry protein, total urine random Negative mg/dL Negative RBC, urine, dipstick Negative Negative human chorionic gonadotropin, urine, qualitative (urine test) Negative Negative Lab Report: UADIP W/MICRO, AUTO, [facility] [place] - Urinalysis urobilinogen, urine, semiquantitative (dipstick) 0.2 Normal leukocyte esterase, urine, by dipstick Negative Negative nitrite, urine, semiquantitative Negative Negative glucose, urine, semiquantitative Negative Negative ketones, urine, by test strip Negative Negative bilirubin, urine Negative Negative urine color Yellow Colorless;Lightyellow;Straw;Yellow appearance, urine Clear Clear specific gravity, urine 1.025 1.000-1.030 pH, urine, semiquantitative 7.0 5.0-8.5 Encounters Code Encounter Date Provider Facility CPT-93287 Level 3 Est. Patient 14:49:50 CDT Vishal Hui MD [facility] CPT-87602 Level 4 Est. Patient 18:41:46 CDT Neeraj Collins MD [facility] CPT-75248 Level 4 Est. Patient 09:18:38 [employer]ATE Vishal Hui MD [facility] CPT-07025 Level 3 Est. Patient 14:43:55 [employer] ASS[employer]IATE Vishal Hui MD [facility] CPT-45063 Level 3 Est. Patient 15:26:33 [employer]ATE Sahara Rodriguez MD PhD [facility] CPT-03519 Level 3 Est. Patient 10:32:14 [employer]IATE Vishal Hui MD [facility] CPT-29801 Level 3 Est. Patient 15:12:52 [employer] ASSOCIATE Vishal Hui MD [facility] CPT-64248 Level 4 Est. Patient 09:19:27 CDT Vishal Hui MD [facility] CPT-19533 Level 3 Est. Patient 15:53:00 CDT Renzo Barajas [facility] CPT-77515 Level 3 Est. Patient 15:50:30 CDT Renzo Thornton [facility] CPT-20937 Level 3 Est. Patient 16:55:24 CDT Vishal Hui MD [facility] Procedures Code Procedure Name Date Entry Date Standard Description CPT-12012 Sono transvag pelvis non OB uterus ovaries cervix 16:36: 57 CDT CPT-24804 LS spine comp w obliq 09:50:55 [employer] CPT-90006 Abd compl w upright 09:50:55 [employer]IATE CPT-J1100 Decadron 4mg (Dexamethasone) 15:51:24 [employer]IATE CPT-J1030 Depo Medrol 40 mg (Methyl Prednisolone Acetate) 15:51: 24 [employer] ASSOCIATE CPT-23757 Abx/Therapy Injection 15:51:24 [employer]WORK ASSOCIATE CPT-J1100 Decadron 4mg (Dexamethasone) 15:26:33 [employer]WORK ASSOCIATE CPT-J1030 Depo Medrol 40 mg (Methyl Prednisolone Acetate) 15:26: 33 [employer] ASSOCIATE CPT-93089 Sono retroperitoneal complete kidneys and bladder 17:15: 30 CDT CPT-65039 Abd compl w upright 16:09:25 CDT CPT-J1100 Decadron 8mg (Dexamethasone) 17:07:57 CDT CPT-73347 Abx/Therapy Injection 17:07:57 CDT CPT-J1100 Decadron 8mg (Dexamethasone) 16:55:24 CDT CPT-53652 Chest 2V Frontal and Lat 16:32:44 CDT
--- OUTSIDE RECORDS SUMMARY | 2016-11-04 22:07 | XMS REPORT | Clinical Summary ---
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 Juliet Kimbrough COPYHOLDER Dependence on other enabling machines and devices [...] Shortness of breath 786.05 Active Fabiola Johnson COPYHOLDER Shortness of breath Nocturnal hypoxia 799.02 Active Fabiola Johnson COPYHOLDER Hypoxemia Neck pain 723.1 Active Luigi Martínez COPYHOLDER Cervicalgia Vaginal discharge 623.5 Active Neeraj Collins [...] Hui MD Physical examination ICD-V70.0 Inactive Vishal Hiu MD Vaginitis ICD-616.10 Jim Hui MD Mrsa [...] TABS take as directed 2015 VARENICLINE TARTRATE 42306981854 Active Ahmet Carbajal MD Active CHANTIX 1 MG TABS 1 twice a day to help quit smoking VARENICLINE TARTRATE 48877627306 Active Ahmet Carbajal MD Active HYDROCODONE-ACETAMINOPHEN 5-325 MG TABS 1 to 2 four times a day as needed for pain use until can be seen by specialist HYDROCODONE- ACETAMINOPHEN 20167420104 No Longer Active Vishal Hui MD Active PROAIR HFA 108 (90 BASE) MCG/ACT AERS 2 puffs four times a day as needed 2015 ALBUTEROL SULFATE 52018893699 No Longer Active Vishal Hui MD Active PREDNISONE 20 MG TABS 2 daily for 5 days then 1 daily for 5 days PREDNISONE 94099759261 No Longer Active Vishal Hui MD Active ZITHROMAX Z-EARNEST 250 MG TABS 2 today and then 1 daily for 4 days AZITHROMYCIN 98033472852 No Longer Active Vishal Hui MD Active DICLOFENAC SODIUM 50 MG TBEC 1 tablet by mouth four times daily PRN Pain 2015 DICLOFENAC SODIUM 90133884173 Active Vishal Hui MD Active DICLOFENAC POTASSIUM TABS Take 1 tablet twice a day (pt. is not sure of the dose.) DICLOFENAC POTASSIUM TABS 40057801054 No Longer Active Vishal Hui MD Active VERAPAMIL HCL ER 120 MG ORAL CR-TABS Take 1 tablet by mouth twice a day. VERAPAMIL HCL 69316133088 Active Vishal Hui MD Active FLAGYL 500 MG TAB 1 tablet by mouth bid METRONIDAZOLE 37596794123 No Longer Active Vishal Hui MD Active ABILIFY MAINTENA 400 MG IM SUSR 400mg injection every 28 days ARIPIPRAZOLE 60697496113 Active Silvia Ervinum REFUSE DRIVER Active FLUTICASONE PROPIONATE 50 MCG/ACT SUSP 2 sprays each nostril daily before bed. FLUTICASONE PROPIONATE 05298339409 Active Fabiola Johnson APRN Active ADZENYS XR-ODT 6.3 MG ORAL TBED 1 tab po daily for ADHD AMPHETAMINE 32028415587 Active Fabiola Johnson APRN Active BENADRYL 25 MG CAP 4 po at bedtime for insomnia DIPHENHYDRAMINE HCL 30521077298 Active Fabiola Johnson APRN Active KLONOPIN 1 MG ORAL TABS 1 tab po TID CLONAZEPAM 64830371949 Active Fabiola Johnson APRN Active VALIUM 5 MG TAB Take 1-2 tablets daily DIAZEPAM 02935468307 No Longer Active Fabiola Johnson APRN Active METOPROLOL TARTRATE 25 MG ORAL TABS 1/2 tablet twice daily for heart rate and blood pressure METOPROLOL TARTRATE 80129909484 No Longer Active Fabiola Johnson APRN Active MIRALAX ORAL POWD 17GMS DAILY IN WATER POLYETHYLENE GLYCOL 3350 32021719800 Active Vishal Hui MD Active VIIBRYD 10 MG ORAL TABS Take 1 tablet once a day VILAZODONE HCL 48305453456 Active Ahmet Carbajal MD Active MIRALAX PACK 1 po qd PRN Constipation POLYETHYLENE GLYCOL 3350 13577356904 No Longer Active Ahmet Carbajal MD Active MINIPRESS 2 MG CAPS 4 cap po at night PRAZOSIN HCL 26731866680 No Longer Active Ahmet Carbajal MD Active PIROXICAM 20 MG CAPS 1 cap po qd PRN Pain PIROXICAM 72161763095 No Longer Active Ahmet Carbajal MD Active TRAMADOL HCL 50 MG TABS 1-2 po TID PRN Pain TRAMADOL HCL 23783258112 No Longer Active Ahmet Carbajal MD Active METOPROLOL TARTRATE 50 MG TAB 1 po bid METOPROLOL TARTRATE 54442819783 No Longer Active Ahmet Carbajal MD Active ABILIFY 15 MG ORAL TABS 1 tab daily ARIPIPRAZOLE 74274318989 No Longer Active Ahmet Carbajal MD Active PROZAC 20 MG ORAL CAPS 1 tab daily FLUOXETINE HCL 51542229170 No Longer Active Ahmet Carbajal MD Active AMBIEN 5 MG ORAL TABS 1 tab at bedtime ZOLPIDEM TARTRATE 09114060613 No Longer Active Ahmet Carbajal MD Active PREDNISONE 20 MG TAB 2 tabs daily for 4 days, 1 tab daily for 4 days, 1/2 tab daily for 4 days PREDNISONE 44726159691 No Longer Active Ahmet Carbajal MD Active KEFLEX 500 MG CAP 1 po TID x 10 days CEPHALEXIN 85345913710 No Longer Active Vishal Hui MD Active IMITREX 50 MG ORAL TABS 1/2 tab every 6 hours prn SUMATRIPTAN SUCCINATE 64343425653 Active Jillina Fralebron NORIEGA Active TOPAMAX 50 MG ORAL TABS 1 tab twice daily TOPIRAMATE 24242432747 Active Vishal Hui MD Active SAPHRIS 5 MG SUBL 1 po bid ASENAPINE MALEATE 64223163712 No Longer Active Luigi Martínez APRN Active LATUDA 80 MG TABS Take one by mouth daily LURASIDONE HCL 93377953529 No Longer Active Luigi Martínez APRN Active AMLODIPINE BESYLATE 5 MG TABS 1 tablet by mouth daily AMLODIPINE BESYLATE 17692996312 No Longer Active Luigi Martínez APRN Active AMITRIPTYLINE HCL 100 MG TAB one at hs AMITRIPTYLINE HCL 83230868660 No Longer Active Vishal Hui MD Active TRAZODONE HCL 100 MG TAB take 1 at bedtime TRAZODONE HCL 25315520101 No Longer Active Vishal Hui MD Active VYVANSE 40 MG CAPS 1 daily, LISDEXAMFETAMINE DIMESYLATE 83179002374 No Longer Active Vishal Hui MD Active IBUPROFEN 600 MG TAB 1 po TID PRN IBUPROFEN 28909710724 No Longer Active Vishal Hui MD Active PROZAC 20 MG CAP Take one by mouth daily FLUOXETINE HCL 55371316460 No Longer Active Vishal Hui MD Active ZOFRAN 4 MG TABS 1 po q6hr PRN Nausea ONDANSETRON HCL Active Vishal Hui MD Active BACTRIM DS 800-160 MG TABS 1 pill by mouth twice daily SULFAMETHOXAZOLE-TRIMETHOPRIM 33673542117 No Longer Active Sahara Rodriguez MD PhD Active DIFLUCAN 150 MG TAB 1 tablet by mouth daily FLUCONAZOLE 07084469117 No Longer Active Vishal Hui MD Active TIZANIDINE HCL 4 MG TABS 1 po q6hr PRN Muscle Spasm/Back Pain TIZANIDINE HCL 47884408585 Active Vishal Hui MD Active CLINDAMYCIN HCL 150 MG CAPS 1 four times a day CLINDAMYCIN HCL 31150089685 No Longer Active Neeraj Collins MD Active KEFLEX 500 MG ORAL CAPS 1 cap QID by mouth CEPHALEXIN 38467635603 No Longer Active Neeraj Collins MD Active DIFLUCAN 150 MG TABS 1 pill every other day x 2 doses FLUCONAZOLE 51794007975 No Longer Active Sahara Rodriguez MD PhD Active MELATONIN 3 MG CAPS 2 po q hs MELATONIN 42788905382 No Longer Active Sahara Rodriguez MD PhD Active MULTIVITAMINS CAPS Take one by mouth daily MULTIPLE VITAMIN 74727687434 No Longer Active Sahara Rodriguez MD PhD Active BACTRIM DS 800-160 MG TAB 1 tab by mouth twice daily TRIMETHOPRIM-SULFAMETHOXAZOLE 34140351768 No Longer Active Sahara Rodriguez MD PhD Active [facility] PROBIOTIC ORAL CHEW 2 daily po PROBIOTIC PRODUCT 32728510507 No Longer Active Sahara Rodriguez MD PhD Active BACTRIM DS 800-160 MG TABS 1 po BID x 7 days SULFAMETHOXAZOLE-TRIMETHOPRIM 17738193998 No Longer Active Vishal Hui MD Active CHANTIX STARTING MONTH EARNEST 0.5 MG X 11 & 1 MG X 42 TABS 0.5mg daily for 3 days , then 0.5mg BID for 4 days, then 1mg BID VARENICLINE TARTRATE 16571953491 No Longer Active TAMARA Gray Active VERAPAMIL HCL CR 120 MG TAB CR 1 po bid VERAPAMIL HCL 39654330113 No Longer Active Vishal Hui MD Active METOPROLOL SUCCINATE 50 MG TB24 1 tablet by mouth daily METOPROLOL SUCCINATE 63994961353 No Longer Active Vishal Hui MD Active SAPHRIS 10 MG SUBL 1 tab po bid ASENAPINE MALEATE 22781828582 No Longer Active Vishal Hui MD Active LISINOPRIL 20 MG TABS 1 tab po qd LISINOPRIL 10588507392 No Longer Active Vishal Hui MD Active LATUDA 20 MG TABS Take one by mouth daily LURASIDONE HCL 49907422405 No Longer Active Vishal Hui MD Active TRAZODONE HCL 50 MG TABS 1/2 tab po qd prn for anxiety TRAZODONE HCL 99083544039 No Longer Active Vishal Hui MD Active OMEPRAZOLE 20 MG TBEC 1 po q a.m. 30min prior to first food intake OMEPRAZOLE 09950024253 Active Vishal Hui MD Active RANITIDINE HCL 150 MG CAPS 1 twice a day RANITIDINE HCL 76422920811 Active Luigi Martínez APRN Active LINZESS 290 MCG CAPS Take one by mouth daily LINACLOTIDE 09686381407 No Longer Active Vishal Hui MD Active SAPHRIS 5 MG SUBL 1 tab po qd ASENAPINE MALEATE 98427837716 No Longer Active Vishal Hui MD Active ZALEPLON 10 MG CAPS 1 cap po every other night ZALEPLON 67332735731 No Longer Active Vishal Hui MD Active LYRICA 50 MG CAPS 1 tab po TID PREGABALIN 64315697391 No Longer Active Vishal Hui MD Active LORATADINE 10 MG TABS 1 tab po qd LORATADINE 62817269476 No Longer Active Vishal Hui MD Active VERAPAMIL HCL ER 180 MG CR-TABS 1 tab po bid VERAPAMIL HCL 30000439972 No Longer Active Vishal Hui MD Active MIRALAX POWD 1 capfull once daily POLYETHYLENE GLYCOL 3350 95139144513 No Longer Active Vishal Hui MD Active PREDNISONE 20 MG TABS 1 tab po qd PREDNISONE 85775971038 No Longer Active Renzo Thornton DO Active LEVOFLOXACIN 500 MG TABS 1 tab po qd LEVOFLOXACIN 68695775599 No Longer Active Renzo Thornton DO Active BUSPIRONE HCL 15 MG TABS 1 tab po TID BUSPIRONE HCL 94298288524 No Longer Active Renzo Thornton DO Active BENZTROPINE MESYLATE 1 MG TABS 1 tab po qd BENZTROPINE MESYLATE 29129589308 No Longer Active Renzo Thornton DO Active ATENOLOL 25 MG TABS 1 tab po qd ATENOLOL 18092994198 No Longer Active Renzo Thornton DO Active ESCITALOPRAM OXALATE 20 MG TABS 1 tab po qd ESCITALOPRAM OXALATE 26519381918 No Longer Active Renzo Thornton DO Active ADVAIR DISKUS 250-50 MCG/DOSE AEPB 1 puff BID FLUTICASONE-SALMETEROL 66824586711 No Longer Active Renzo Thornton DO Active PREDNISONE 20 MG TAB 2 tabs daily for 3 days, 1 tab daily for 3 days, 1/2 tab daily for 2 days PREDNISONE 40458411462 No Longer Active Vishal Hui MD Active CEFDINIR 300 MG CAPS by mouth twice a day CEFDINIR 79815835422 No Longer Active Vishal Hui MD Active LANSOPRAZOLE 30 MG CPDR 1 cap po qd LANSOPRAZOLE 07593567815 No Longer Active Vishal Hui MD Active BACLOFEN 20 MG TABS 1 tab po tid BACLOFEN 86183117477 No Longer Active Vishal Hui MD Active ADVAIR DISKUS 250-50 MCG/DOSE AEPB 1 puff BID ADVAIR DISKUS 250-50 MCG/DOSE AEPB FLUTICASONE-SALMETEROL Inactive ESCITALOPRAM OXALATE 20 MG TABS 1 tab po qd ESCITALOPRAM OXALATE 20 MG TABS 158278 ESCITALOPRAM OXALATE Inactive ATENOLOL 25 MG TABS 1 tab po qd ATENOLOL 25 MG TABS 076256 ATENOLOL Inactive BENZTROPINE MESYLATE 1 MG TABS 1 tab po qd BENZTROPINE MESYLATE 1 MG TABS 406569 BENZTROPINE MESYLATE Inactive BUSPIRONE HCL 15 MG TABS 1 tab po TID BUSPIRONE HCL 15 MG TABS 015315 BUSPIRONE HCL Inactive LEVOFLOXACIN 500 MG TABS 1 tab po qd LEVOFLOXACIN 500 MG TABS 028963 LEVOFLOXACIN Inactive PREDNISONE 20 MG TABS 1 tab po qd PREDNISONE 20 MG TABS 887016 PREDNISONE Inactive MIRALAX POWD 1 capfull once daily MIRALAX POWD 352770 POLYETHYLENE GLYCOL 3350 Inactive VERAPAMIL HCL ER 180 MG CR-TABS 1 tab po bid VERAPAMIL HCL ER 180 MG CR-TABS VERAPAMIL HCL Inactive LORATADINE 10 MG TABS 1 tab po qd LORATADINE 10 MG TABS 938016 LORATADINE Inactive LYRICA 50 MG CAPS 1 tab po TID LYRICA 50 MG CAPS PREGABALIN Inactive ZALEPLON 10 MG CAPS 1 cap po every other night ZALEPLON 10 MG CAPS 614664 ZALEPLON Inactive SAPHRIS 5 MG SUBL 1 tab po qd SAPHRIS 5 MG SUBL ASENAPINE MALEATE Inactive TRAZODONE HCL 50 MG TABS 1/2 tab po qd prn for anxiety TRAZODONE HCL 50 MG TABS 706904 TRAZODONE HCL Inactive LATUDA 20 MG TABS Take one by mouth daily LATUDA 20 MG TABS LURASIDONE HCL Inactive LISINOPRIL 20 MG TABS 1 tab po qd LISINOPRIL 20 MG TABS 663199 LISINOPRIL Inactive SAPHRIS 10 MG SUBL 1 [...] twice daily BACTRIM DS 800-160 MG TAB 020440 TRIMETHOPRIM-SULFAMETHOXAZOLE Inactive MULTIVITAMINS CAPS Take one by mouth daily MULTIVITAMINS CAPS MULTIPLE VITAMIN Inactive MELATONIN 3 MG CAPS 2 po q hs MELATONIN 3 MG CAPS 462958 MELATONIN Inactive KEFLEX 500 MG ORAL CAPS 1 cap QID by mouth KEFLEX 500 MG ORAL CAPS 948264 CEPHALEXIN Inactive CLINDAMYCIN HCL 150 MG CAPS 1 four times a day CLINDAMYCIN HCL 150 MG CAPS 029192 CLINDAMYCIN HCL Inactive DIFLUCAN 150 MG TAB 1 tablet by mouth daily DIFLUCAN 150 MG TAB 582932 FLUCONAZOLE Inactive PROZAC 20 MG CAP Take one by mouth daily PROZAC 20 MG CAP 390927 FLUOXETINE HCL Inactive IBUPROFEN 600 MG TAB 1 po TID PRN IBUPROFEN 600 MG TAB 719392 IBUPROFEN Inactive VYVANSE 40 MG CAPS 1 daily, VYVANSE 40 MG CAPS LISDEXAMFETAMINE DIMESYLATE Inactive TRAZODONE HCL 100 MG TAB take 1 at bedtime TRAZODONE HCL 100 MG TAB 352458 TRAZODONE HCL Inactive AMITRIPTYLINE HCL 100 MG TAB one at hs AMITRIPTYLINE HCL 100 MG TAB 188500 AMITRIPTYLINE HCL Inactive AMLODIPINE BESYLATE 5 MG TABS 1 tablet by mouth daily AMLODIPINE BESYLATE 5 MG TABS 456406 AMLODIPINE BESYLATE Inactive LATUDA 80 MG TABS Take one by mouth daily LATUDA 80 MG TABS LURASIDONE HCL Inactive SAPHRIS 5 MG SUBL 1 po bid SAPHRIS 5 MG SUBL ASENAPINE MALEATE Inactive PREDNISONE 20 MG TAB 2 tabs daily for 4 days, 1 tab daily for 4 days, 1/2 tab daily for 4 days PREDNISONE 20 MG TAB 653121 PREDNISONE Inactive AMBIEN 5 MG ORAL TABS 1 tab at bedtime AMBIEN 5 MG ORAL TABS 865578 ZOLPIDEM TARTRATE Inactive PROZAC 20 MG ORAL CAPS 1 tab daily PROZAC 20 MG ORAL CAPS 753480 FLUOXETINE HCL Inactive ABILIFY 15 MG ORAL TABS 1 tab daily ABILIFY 15 MG ORAL TABS 738600 ARIPIPRAZOLE Inactive METOPROLOL TARTRATE 50 MG TAB 1 po bid METOPROLOL TARTRATE 50 MG TAB 784919 METOPROLOL TARTRATE Inactive TRAMADOL HCL 50 MG TABS 1-2 po TID PRN Pain TRAMADOL HCL 50 MG TABS 879368 TRAMADOL HCL Inactive PIROXICAM 20 MG CAPS 1 cap po qd PRN Pain PIROXICAM 20 MG CAPS 382357 PIROXICAM Inactive MINIPRESS 2 MG CAPS 4 cap po at night MINIPRESS 2 MG CAPS 558559 PRAZOSIN HCL Inactive MIRALAX PACK 1 po qd PRN Constipation MIRALAX PACK 619277 POLYETHYLENE GLYCOL 3350 Inactive METOPROLOL TARTRATE 25 MG ORAL TABS 1/2 tablet twice daily for heart rate and blood pressure METOPROLOL TARTRATE 25 MG ORAL TABS 187315 METOPROLOL TARTRATE Inactive VALIUM 5 MG TAB Take 1-2 tablets daily VALIUM 5 MG TAB 458931 DIAZEPAM Inactive FLAGYL 500 MG TAB 1 tablet by mouth bid FLAGYL 500 MG TAB 018727 METRONIDAZOLE Inactive DICLOFENAC POTASSIUM TABS Take 1 tablet twice a day (pt. is not sure of the dose.) DICLOFENAC POTASSIUM TABS DICLOFENAC POTASSIUM TABS Inactive ZITHROMAX Z-EARNEST 250 MG TABS 2 today and then 1 daily for 4 days ZITHROMAX Z-EARNEST 250 MG TABS 9592716 AZITHROMYCIN Inactive PREDNISONE 20 MG TABS 2 daily for 5 days then 1 daily for 5 days PREDNISONE 20 MG TABS 947392 PREDNISONE Inactive PROAIR HFA 108 (90 BASE) MCG/ACT AERS 2 puffs four times a day as needed 2015 PROAIR HFA 108 (90 BASE) MCG/ACT AERS ALBUTEROL SULFATE Inactive HYDROCODONE-ACETAMINOPHEN 5-325 MG TABS 1 to 2 four times a day as needed for pain use until can be seen by specialist HYDROCODONE- ACETAMINOPHEN 5-325 MG TABS 461317 HYDROCODONE-ACETAMINOPHEN Inactive CEFDINIR 300 MG CAPS by mouth twice a day CEFDINIR 300 MG CAPS 084328 CEFDINIR Inactive PREDNISONE 20 MG TAB 2 tabs daily for 3 days, 1 tab daily for 3 days, 1/2 tab daily for 2 days PREDNISONE 20 MG TAB 880922 PREDNISONE Inactive BACTRIM DS 800-160 MG TABS 1 po BID x 7 days BACTRIM DS 800-160 MG TABS 395205 SULFAMETHOXAZOLE-TRIMETHOPRIM Inactive DIFLUCAN 150 MG TABS 1 pill every other day x 2 doses DIFLUCAN 150 MG TABS 979911 FLUCONAZOLE Inactive BACTRIM DS 800-160 MG TABS 1 pill by mouth twice daily BACTRIM DS 800-160 MG TABS 853385 SULFAMETHOXAZOLE-TRIMETHOPRIM Inactive KEFLEX 500 MG CAP 1 po TID x 10 days KEFLEX 500 MG CAP 397411 CEPHALEXIN Inactive Advance Directives Directive Description Start [...] % 11.6-14.8 platelet count 394 10^3/MM^3 10*3/mm3 492-080 3113/01/11 leukocyte count, blood 13.8 10^3/MM^3 10*3/mm3 4.6-10.2 [...] Panel - Chemistry sodium, serum 139 mmol/L 530-780 9545/12/03 carbon dioxide, venous blood 28.5 mmol/L 21.0-32.0 [...] 5.5 % 4.3-6.0 cholesterol, serum 159 mg/dL 162-110 2318/12/03 triglyceride, serum, fasting 118 mg/dL 30-200 HDL [...] Panel - Chemistry sodium, serum 139 mmol/L 025-556 4049/12/22 carbon dioxide, venous blood 26.8 mmol/L 21.0-32.0 potassium, serum 4.2 mmol/L 3.5-5.2 chloride, serum 103 mmol/L 98-107 blood glucose 115 mg/dL 65-110 urea nitrogen, blood 20 mg/dL 7-18 creatinine, serum 0.90 mg/dL 0.55-1.30 alanine aminotransferase (SGPT), serum 38 U/L - aspartate aminotransferase (SGOT), serum 19 U/L 15-37 calcium, serum 8.6 mg/dL 8.5-10.1 bilirubin, serum, total 0.30 mg/dL 0.00-1.00 sodium, serum 139 mmol/L 269-093 1896/01/11 carbon dioxide, venous blood 26.6 mmol/L 21.0-32.0 potassium, serum 4.1 mmol/L 3.5-5.2 chloride, serum 100 mmol/L 98-107 blood glucose 86 mg/dL 65-110 urea nitrogen, blood 16 mg/dL 7-18 creatinine, serum 1.00 mg/dL 0.55-1.30 alanine aminotransferase (SGPT), serum 48 U/L aspartate aminotransferase (SGOT), serum 17 U/L 15-37 calcium, serum 9.1 mg/dL 8.5-10.1 bilirubin, serum, total 0.40 mg/dL 0.00-1.00 sodium, serum 142 mmol/L 559-424 4444/06/08 carbon dioxide, venous blood 27.6 mmol/L 21.0-32.0 potassium, serum 4.0 mmol/L 3.5-5.2 chloride, serum 105 mmol/L 98-107 blood glucose 95 mg/dL 65-110 urea nitrogen, blood 8 mg/dL 7-18 creatinine, serum 0.75 mg/dL 0.55-1.30 alanine aminotransferase (SGPT), serum 49 U/L 12-78 aspartate aminotransferase (SGOT), serum 28 U/L 15-37 calcium, serum 9.4 mg/dL 8.5-10.1 bilirubin, serum, total 0.30 mg/dL 0.00-1.00 sodium, serum 140 mmol/L 975-074 5940/08/08 carbon dioxide, venous blood 33.7 mmol/L 21.0-32.0 [...] Rate - Chemistry sodium, serum 139 mmol/L 455-379 2255/12/11 carbon dioxide, venous blood 25.4 mmol/L 21.0-32.0 [...] mg/dL Encounters Code Encounter Date Provider Facility CPT-55701 Level 3 Est. Patient 11:36:17 CDT Ahmet Carbajal MD [facility] CPT-84578 Level 3 Est. Patient 13:29:16 CDT Vishal Hui MD [facility] CPT-34197 Level 3 Est. Patient 14:27:52 CDT Neeraj Collins MD [facility] CPT-96952 Level 3 Est. Patient 08:56:03 CDT Luigi Martínez [facility] CPT-32306 Level 4 Est. Patient 12:11:48 CDT Fabiola Johnson [facility] CPT-55336 Level 3 New Patient 16:53:37 CDT Albert Caldera MD [facility] CPT-60922 Level 3 Est. Patient 11:25:49 CDT Renzo Thornton DO [facility] CPT-10423 Level 3 Est. Patient 15:22:01 CDT Ahmet Carbajal MD [facility] CPT-19360 Level 4 Est. 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 CPT-27128 Level 3 Est. 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 CPT-17875 Level 4 Est. 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 Patient 13:35:45 CDT Vishal Hui MD [facility] CPT-31398 Level 4 Est. Patient 10:08:37 CDT Vishal Hui MD [facility] CPT-54840 Level 3 Est. Patient 11:22:10 CDT Vsihal Hui MD [facility] CPT-46769 Level 3 Est. Patient 11:03:32 CDT Sahara Rodriguez MD [facility]-51531 Level 3 Est. Patient 09:41:35 CDT Vishal Hui MD [facility]-35134 Level 3 Est. Patient 12:00:41 CDT Neeraj Collins MD [facility]-97085 Level 3 Est. Patient 09:16:24 CDT Vishal Hui MD [facility] CPT-94258 Level 4 Est. Patient 13:59:09 CDT Neeraj Collins MD [facility]-25138 Level 3 Est. Patient 15:19:43 CDT Renzo Thornton DO [facility] CPT-90902 Level 3 Est. Patient 18:10:26 CDT Sahara Rodriguez MD [facility]-46494 Level 3 Est. Patient 14:49:50 CDT Vishal Hui MD [facility] CPT-09255 Level 4 Est. Patient 18:41:46 CDT Neeraj Collins MD [facility]-56221 Level 4 Est. Patient 09:18:38 [employer] MACHINE Vishal Hui MD [facility]-00132 Level 3 Est. Patient 14:43:55 CLOTH F[employer] MACHINE Vishal Hui MD [facility] CPT-98185 Level 3 Est. Patient 15:26:33 CLOTH F[employer] MACHINE Sahara Rodriguez MD [facility]-81106 Level 3 Est. Patient 10:32:14 [employer]OTH F[employer] MACHINE Vishal Hui MD [facility]-40715 Level 3 Est. Patient 15:12:52 CLOTH F[employer] MACHINE Vishal Hui MD [facility] CPT-75141 Level 4 Est. Patient 09:19:27 CDT Vishal Hui MD [facility]-38631 Level 3 Est. Patient 15:53:00 CDT Renzo Thornton [facility] CPT-32462 Level 3 Est. Patient 15:50:30 CDT Renzo Thornton [facility] CPT-50529 Level 3 Est. Patient 16:55:24 CDT Vishal Hui MD [facility] Procedures Code Procedure Name Date Entry Date Standard Description CPT-76102 Abx/Therapy Injection 08:47:09 CDT CPT-67567 Abx/Therapy Injection 13:29:56 CDT CPT-49839 Abx/Therapy Injection 08:36:16 CDT CPT-72548 Wet Mount - LAB USE ONLY 17:44:58 CDT CPT-43880 UA w micro - LAB USE ONLY 17:44:58 CDT CPT-92703 CMP - LAB USE ONLY 17:44:58 CDT CPT-94989 Venipuncture Draw Fee 17:44:58 CDT CPT-58251 Cervical Min 4V - XRAY USE ONLY 09:01:40 CDT CPT-67253 Chest 2V Frontal and Lat - XRAY USE ONLY 11:06:31 CDT CPT-22559 EKG Trac and Interp - XRAY USE ONLY 11:31:43 CDT 08/26 CPT-J3420 Vitamin B12 1000mcg (Cyanocobalamin) 08:10:26 [employer] MACHINE 04/12 CPT-26333 Abx/Therapy Injection 08:10:26 [employer] F[employer]ACHINE CPT-G0438 Initial Annual Wellness Exam 19:01:01 [employer] F[employer] MACHINE CPT-J3420 Vitamin B12 1000mcg (Cyanocobalamin) 16:57:46 CDT 08/14 CPT-22979 Recombivax HB Injection Suspension 5 MCG/0.5ML 08:37:50 [employer] F[employer] MACHINE CPT-84629 Immunization Single Admin 08:37:50 [employer]ACHINE CPT-J3420 Vitamin B12 1000mcg (Cyanocobalamin) 08:32:16 [employer] F[employer] MACHINE 03/11 CPT-54391 Abx/Therapy Injection 08:32:16 [employer] F[employer] MACHINE CPT-28749 Chest 2V Frontal and Lat 11:46:38 [employer] MACHINE CPT-81222 Venipuncture Draw Fee 09:12:45 [employer] F[employer] MACHINE CPT-J3420 Vitamin B12 1000mcg (Cyanocobalamin) 08:50:15 [employer] F[employer] MACHINE 02/08 CPT-48691 Abx/Therapy Injection 08:50:15 [employer] F[employer] MACHINE CPT-Cryo Cryotherapy 10:19:35 [employer] F[employer] MACHINE CPT-000 Give Appropriate Flu Vaccine 09:22:16 CDT CPT-J3420 Vitamin B12 1000mcg (Cyanocobalamin) 19:08:57 CDT 01/11 CPT-11494 Abx/Therapy Injection 19:08:57 CDT CPT-J3420 Vitamin B12 1000mcg (Cyanocobalamin) 08:19:08 CDT 12/11 CPT-94701 Abx/Therapy Injection 08:19:08 CDT CPT-J3420 Vitamin B12 1000mcg (Cyanocobalamin) 14:48:00 CDT 11/09 CPT-47037 Abx/Therapy Injection 14:47:59 CDT CPT-J3420 Vitamin B12 1000mcg (Cyanocobalamin) 08:34:04 CDT 10/09 CPT-14013 Abx/Therapy Injection 08:34:04 CDT CPT-J3420 Vitamin B12 1000mcg (Cyanocobalamin) 09:18:52 CDT 09/11 CPT-01028 Abx/Therapy Injection 09:18:52 CDT CPT-J3420 Vitamin B12 1000mcg (Cyanocobalamin) 08:35:44 CDT 09/04 CPT-58009 Abx/Therapy Injection 08:35:44 CDT CPT-22686 Immunization Single Admin 11:07:16 CDT CPT-23164 Hepatitis B adult IM 11:07:16 CDT CPT-J3420 Vitamin B12 1000mcg (Cyanocobalamin) 11:00:49 CDT 08/28 CPT-J1040 Depo Medrol 80 mg (Methyl Prednisolone Acetate) 11:00: 49 CDT CPT-06294 Abx/Therapy Injection 11:00:49 CDT CPT-J1040 Depo Medrol 80 mg (Methyl Prednisolone Acetate) 09:16: 23 CDT CPT-J3420 Vitamin B12 1000mcg (Cyanocobalamin) 08:27:05 CDT 08/20 CPT-76653 Abx/Therapy Injection 08:27:05 CDT CPT-20110 Recombivax HB Injection Suspension 5 MCG/0.5ML 10:00:41 CDT CPT-92757 Administration single or combination vaccine inc oral 10 :00:41 CDT CPT-78278 Sono transvag pelvis non OB uterus ovaries cervix 16:36: 57 CDT CPT-60873 LS spine comp w obliq 09:50:55 [employer] CPT-90638 Abd compl w upright 09:50:55 [employer] CPT-J1100 Decadron 4mg (Dexamethasone) 15:51:24 [employer] CPT-J1030 Depo Medrol 40 mg (Methyl Prednisolone Acetate) 15:51: 24 [employer]OTH F[employer]DER MACHINE CPT-34759 Abx/Therapy Injection 15:51:24 [employer] F[employer]DER MACHINE CPT-J1100 Decadron 4mg (Dexamethasone) 15:26:33 [employer] F[employer] MACHINE CPT-J1030 Depo Medrol 40 mg (Methyl Prednisolone Acetate) 15:26: 33 [employer]OTH F[employer]DER MACHINE CPT-29299 Sono retroperitoneal complete kidneys and bladder 17:15: 30 CDT CPT-30135 Abd compl w upright 16:09:25 CDT CPT-J1100 Decadron 8mg (Dexamethasone) 17:07:57 CDT CPT-82882 Abx/Therapy Injection 17:07:57 CDT CPT-J1100 Decadron 8mg (Dexamethasone) 16:55:24 CDT CPT-98313 Chest 2V Frontal and Lat 16:32:44 CDT
--- OUTSIDE RECORDS SUMMARY | 2016-11-04 22:10 | XMS REPORT | Clinical Summary ---
Author Author Admin, Dereck Organization [employer] Address Unknown Phone Unavailable Allergies, Adverse Reactions, [...] pain, unspecified site Cellulitis 682.9 Resolved Vishal Hiu MD Cellulitis and [...] sites Morbid obesity 278.01 Active Juliet Kimbrough COMPOUND MACHINE OPERATOR Morbid obesity 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 Active Juliet Kimbrough COMPOUND MACHINE OPERATOR Dependence on other enabling machines [...] breath Nocturnal hypoxia 799.02 Active Fabiola Johnson COMPOUND MACHINE OPERATOR Hypoxemia Neck pain 723.1 Resolved [...] Martínez APRN Dysuria Contraceptive management V25.09 Active Diipka Burgos MD Encounter for other general counseling [...] Active Ahmet Carbajal MD Generalized anxiety disorder 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 Sulfide 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 well woman exam V72.31 Active Suzan Boo COMPOUND MACHINE OPERATOR Routine gynecological examination Bronchitis, acute with mild bronchospasm 466.0 Active Suzan Boo COMPOUND MACHINE OPERATOR Acute bronchitis Fibrocystic breast changes 610.1 Active Suzan Boo APRN Diffuse cystic 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 Suzan Boo COMPOUND MACHINE OPERATOR Other specified conditions influencing health status Anxiety [...] MG TABS 1 daily for infection LEVOFLOXACIN 24202545215 Active Suzan Rajeev WALTERSN Active TESSALON PERLES 100 MG CAPS 1 three times a day as needed for cough BENZONATATE 37381471601 Active Suzan Rajeev COMPOUND MACHINE OPERATOR Active ZOFRAN 4 MG TABS 1 po q6hr PRN Nausea ONDANSETRON HCL No Longer Active Suzannisha Boo APRN Active FLUTICASONE PROPIONATE 50 MCG/ACT SUSP 2 sprays each nostril daily before bed. FLUTICASONE PROPIONATE 95691389646 No Longer Active Suzan Boo APRN Active ASPIRIN 325 MG ORAL TABS 1 tab q.d ASPIRIN 23091620561 No Longer Active Suzan Boo APRN Active RISPERDAL M-TAB 3 MG ORAL TBDP 1 tab at bedtime RISPERIDONE 09840636494 Active Suzan Boo APRN Active HALOPERIDOL 10 MG ORAL TABS 1 tab q.d HALOPERIDOL 64994393988 No Longer Active Suzan Boo APRN Active GUAIFENESIN-CODEINE 100-10 MG/5ML SYRP 5ml every 4 to 6 hours as needed for cough GUAIFENESIN-CODEINE 57850736816 No Longer Active Suzan Boo APRN Active ZITHROMAX Z-EARNEST 250 MG TABS 2 today and then 1 daily for 4 days AZITHROMYCIN 86144442611 No Longer Active Suzan Boo APRN Active PREDNISONE 10 MG TABS 2 daily for 5 days then 1 daily for 5 days PREDNISONE 89209323508 Active Suzan Boo APRN Active CLONAZEPAM 1 MG ORAL TABS 1 twice a day and an additional 1 tablet every other day as needed for pseudoseizures or anxiety CLONAZEPAM 29337536255 Active Ahmet Carbajal MD Active HYDROCODONE-ACETAMINOPHEN 5-325 MG ORAL TABS 1 tab two times a day HYDROCODONE-ACETAMINOPHEN 64828513300 No Longer Active Ahmet Carbajal MD Active LAMICTAL 100 MG ORAL TABS 1 tab 2 times qd. LAMOTRIGINE 57330698865 Active Ahmet Carbajal MD Active PREDNISONE 20 MG TABS 2 daily for 5 days then 1 daily for 5 days PREDNISONE 67901192521 No Longer Active Ahmet Carbajal MD Active FLUTICASONE PROPIONATE 50 MCG/ACT SUSP 1 to 2 sprays each nostril daily for allergies FLUTICASONE PROPIONATE 44798740511 Active Tila Valenzuela Active BENADRYL 25 MG CAP 4 po at bedtime for insomnia DIPHENHYDRAMINE HCL 75554841913 No Longer Active Ahmet Carbajal MD Active ADVAIR DISKUS 250-50 MCG/DOSE INH AEPB 1 puff twice a day for asthma FLUTICASONE-SALMETEROL 97484749315 No Longer Active Ahmet Carbajal MD Active KLONOPIN 1 MG ORAL TABS 1 tab po TID CLONAZEPAM 85090641940 No Longer Active Ahmet Carbajal MD Active ABILIFY MAINTENA 400 MG IM SUSR 400mg injection every 26 days ARIPIPRAZOLE 32052817361 No Longer Active Ahmet Carbajal MD Active TRAMADOL HCL 50 MG TABS 1/2-1 tab TID PRN TRAMADOL HCL 91277199773 No Longer Active Ahmet Carbajal MD Active BACTRIM DS 800-160 MG TABS 1 twice a day SULFAMETHOXAZOLE- TRIMETHOPRIM 47477758253 No Longer Active Ahmet Carbajal MD Active PROAIR HFA 108 (90 BASE) MCG/ACT AERS 2 puffs four times a day as needed 2015 ALBUTEROL SULFATE 65485572550 Active Ahmet Carbajal MD Active EQ NICOTINE 21 MG/24HR TRANS PT24 Apply daily to stop smoking NICOTINE 54927608495 Active Ahmet Carbajal MD Active MONISTAT 7 COMBO PACK WOODROW 100 & 2 MG-% (9GM) VAG KIT 1 applicatorful per vagina q pm x 7 MICONAZOLE NITRATE 20948771127 No Longer Active Ahmet Carbajal MD Active FLAGYL 500 MG TAB 1 tablet by mouth bid METRONIDAZOLE 18331706784 No Longer Active Ahmet Carbajal MD Active OXYCODONE HCL ER 10 MG ORAL T12A 1/2 tab by mouth every 4 hours prn OXYCODONE HCL 73386673441 No Longer Active Ahmet Carbajal MD Active METHYLPREDNISOLONE 4 MG ORAL TABS po daily METHYLPREDNISOLONE 92461035536 No Longer Active Ahmet Carbajal MD Active LEVOFLOXACIN 500 MG ORAL TABS po daily LEVOFLOXACIN 68305114544 No Longer Active Ahmet Carbajal MD Active VIIBRYD 10 MG ORAL TABS Take 1 tablet once a day VILAZODONE HCL 96611255022 No Longer Active Ahmet Carbajal MD Active TOPAMAX 50 MG ORAL TABS 1 tab twice daily TOPIRAMATE 72472137761 No Longer Active Ahmet Carbajal MD Active DICLOFENAC SODIUM 50 MG TBEC 1 tablet by mouth four times daily PRN Pain 2015 DICLOFENAC SODIUM 76244986267 No Longer Active Ahmet Carbajal MD Active ADZENYS XR-ODT 6.3 MG ORAL TBED 1 tab po daily for ADHD AMPHETAMINE 72526326540 No Longer Active Ahmet Carbajal MD Active CHANTIX 1 MG TABS 1 twice a day to help quit smoking VARENICLINE TARTRATE 63917795569 No Longer Active Dipika Burgos MD Active CHANTIX STARTING MONTH EARNEST 0.5 MG X 11 & 1 MG X 42 TABS take as directed 2015 VARENICLINE TARTRATE 91220248016 No Longer Active Dipika Burgos MD Active TESSALON PERLES 100 MG CAP 1 to 2 tablets by mouth 3 times daily as needed for cough BENZONATATE 66767964098 No Longer Active Luigi Martínez APRN Active IMITREX 50 MG ORAL TABS 0.5 po x 1 PRN Headache. May repeat dose x 1 in 2 hours if needed SUMATRIPTAN SUCCINATE 68092409038 Active Ahmet Carbajal MD Active HYDROCODONE-ACETAMINOPHEN 5-325 MG TABS 1 to 2 four times a day as needed for pain use until can be seen by specialist HYDROCODONE- ACETAMINOPHEN 33601579983 No Longer Active Vishal Hui MD Active PROAIR HFA 108 (90 BASE) MCG/ACT AERS 2 puffs four times a day as needed 2015 ALBUTEROL SULFATE 68020782820 No Longer Active Vishal Hui MD Active PREDNISONE 20 MG TABS 2 daily for 5 days then 1 daily for 5 days PREDNISONE 58046847215 No Longer Active Vishal Hui MD Active ZITHROMAX Z-EARNEST 250 MG TABS 2 today and then 1 daily for 4 days AZITHROMYCIN 94200063572 No Longer Active Vishal Hui MD Active DICLOFENAC POTASSIUM TABS Take 1 tablet twice a day (pt. is not sure of the dose.) DICLOFENAC POTASSIUM TABS 10295369192 No Longer Active Vishal Hui MD Active VERAPAMIL HCL ER 120 MG ORAL CR-TABS Take 1 tablet by mouth twice a day. VERAPAMIL HCL 83196895663 Active Vishal Hui MD Active FLAGYL 500 MG TAB 1 tablet by mouth bid METRONIDAZOLE 38273978758 No Longer Active Vishal Hui MD Active VALIUM 5 MG TAB Take 1-2 tablets daily DIAZEPAM 48424253594 No Longer Active Fabiola Johnson APRN Active METOPROLOL TARTRATE 25 MG ORAL TABS 1/2 tablet twice daily for heart rate and blood pressure METOPROLOL TARTRATE 75412760781 No Longer Active Fabiola Johnson APRN Active MIRALAX ORAL POWD 17GMS DAILY IN WATER POLYETHYLENE GLYCOL 3350 73039389394 Active TAMARA Casey Active MIRALAX PACK 1 po qd PRN Constipation POLYETHYLENE GLYCOL 3350 83011003765 No Longer Active Ahmet Carbajal MD Active MINIPRESS 2 MG CAPS 4 cap po at night PRAZOSIN HCL 14421700926 No Longer Active Ahmet Carbajal MD Active PIROXICAM 20 MG CAPS 1 cap po qd PRN Pain PIROXICAM 52194999564 No Longer Active Ahmet Carbajal MD Active TRAMADOL HCL 50 MG TABS 1-2 po TID PRN Pain TRAMADOL HCL 57268750372 No Longer Active Ahmet Carbajal MD Active METOPROLOL TARTRATE 50 MG TAB 1 po bid METOPROLOL TARTRATE 31625117254 No Longer Active Ahmet Carbajal MD Active ABILIFY 15 MG ORAL TABS 1 tab daily ARIPIPRAZOLE 79753973630 No Longer Active Ahmet Carbajal MD Active PROZAC 20 MG ORAL CAPS 1 tab daily FLUOXETINE HCL 42944234897 No Longer Active Ahmet Carbajal MD Active AMBIEN 5 MG ORAL TABS 1 tab at bedtime ZOLPIDEM TARTRATE 11100976292 No Longer Active Ahmet Carbajal MD Active PREDNISONE 20 MG TAB 2 tabs daily for 4 days, 1 tab daily for 4 days, 1/2 tab daily for 4 days PREDNISONE 73348297324 No Longer Active Ahmet Carbajal MD Active KEFLEX 500 MG CAP 1 po TID x 10 days CEPHALEXIN 61711143857 No Longer Active Vishal Hui MD Active SAPHRIS 5 MG SUBL 1 po bid ASENAPINE MALEATE 58061760568 No Longer Active Jillina Frazell COMPOUND MACHINE OPERATOR Active LATUDA 80 MG TABS Take one by mouth daily LURASIDONE HCL 82235523331 No Longer Active Jillina Frazell COMPOUND MACHINE OPERATOR Active AMLODIPINE BESYLATE 5 MG TABS 1 tablet by mouth daily AMLODIPINE BESYLATE 34634963397 No Longer Active Jillina Frazell COMPOUND MACHINE OPERATOR Active AMITRIPTYLINE HCL 100 MG TAB one at hs AMITRIPTYLINE HCL 85446560546 No Longer Active Vishal Hui MD Active TRAZODONE HCL 100 MG TAB take 1 at bedtime TRAZODONE HCL 02874307336 No Longer Active Vishal Hui MD Active VYVANSE 40 MG CAPS 1 daily, LISDEXAMFETAMINE DIMESYLATE 89935129068 No Longer Active Vishal Hui MD Active IBUPROFEN 600 MG TAB 1 po TID PRN IBUPROFEN 08861149457 No Longer Active Vishal Hui MD Active PROZAC 20 MG CAP Take one by mouth daily FLUOXETINE HCL 86325132737 No Longer Active Vishal Hui MD Active BACTRIM DS 800-160 MG TABS 1 pill by mouth twice daily SULFAMETHOXAZOLE-TRIMETHOPRIM 79566774045 No Longer Active Sahara Rodriguez MD PhD Active DIFLUCAN 150 MG TAB 1 tablet by mouth daily FLUCONAZOLE 38534710771 No Longer Active Vishal Hui MD Active TIZANIDINE HCL 4 MG TABS 1 po q6hr PRN Muscle Spasm/Back Pain TIZANIDINE HCL 51642070035 Active Vishal Hui MD Active CLINDAMYCIN HCL 150 MG CAPS 1 four times a day CLINDAMYCIN HCL 85889398169 No Longer Active Neeraj Collins MD Active KEFLEX 500 MG ORAL CAPS 1 cap QID by mouth CEPHALEXIN 00190363926 No Longer Active Neeraj Collins MD Active DIFLUCAN 150 MG TABS 1 pill every other day x 2 doses FLUCONAZOLE 91408986037 No Longer Active Sahara Rodriguez MD PhD Active MELATONIN 3 MG CAPS 2 po q hs MELATONIN 57503134898 No Longer Active Sahara Rodriguez MD PhD Active MULTIVITAMINS CAPS Take one by mouth daily MULTIPLE VITAMIN 15702565798 No Longer Active Sahara Rodriguez MD PhD Active BACTRIM DS 800-160 MG TAB 1 tab by mouth twice daily TRIMETHOPRIM-SULFAMETHOXAZOLE 36303188716 No Longer Active Sahara Rodriguez MD PhD Active [facility] PROBIOTIC ORAL CHEW 2 daily po PROBIOTIC PRODUCT 18805489208 No Longer Active Sahara Rodriguez MD PhD Active BACTRIM DS 800-160 MG TABS 1 po BID x 7 days SULFAMETHOXAZOLE-TRIMETHOPRIM 94753955362 No Longer Active Vishal Hui MD Active CHANTIX STARTING MONTH EARNEST 0.5 MG X 11 & 1 MG X 42 TABS 0.5mg daily for 3 days , then 0.5mg BID for 4 days, then 1mg BID VARENICLINE TARTRATE 68653162351 No Longer Active TAMARA Gray Active VERAPAMIL HCL CR 120 MG TAB CR 1 po bid VERAPAMIL HCL 50254084018 No Longer Active Vishal Hui MD Active METOPROLOL SUCCINATE 50 MG TB24 1 tablet by mouth daily METOPROLOL SUCCINATE 02311542420 No Longer Active Vishal Hui MD Active SAPHRIS 10 MG SUBL 1 tab po bid ASENAPINE MALEATE 72503027087 No Longer Active Vishal Hui MD Active LISINOPRIL 20 MG TABS 1 tab po qd LISINOPRIL 39910277449 No Longer Active Vishal Hui MD Active LATUDA 20 MG TABS Take one by mouth daily LURASIDONE HCL 40732967925 No Longer Active Vishal Hui MD Active TRAZODONE HCL 50 MG TABS 1/2 tab po qd prn for anxiety TRAZODONE HCL 42099143259 No Longer Active Vishal Hui MD Active OMEPRAZOLE 20 MG TBEC 1 po q a.m. 30min prior to first food intake OMEPRAZOLE 18396647729 Active Vishal Hui MD Active RANITIDINE HCL 150 MG CAPS 1 twice a day RANITIDINE HCL 33502268294 Active Jioral Martínez APRN Active LINZESS 290 MCG CAPS Take one by mouth daily LINACLOTIDE 62818746983 No Longer Active Vishal Hui MD Active SAPHRIS 5 MG SUBL 1 tab po qd ASENAPINE MALEATE 74057567760 No Longer Active Vishal Hui MD Active ZALEPLON 10 MG CAPS 1 cap po every other night ZALEPLON 43456925393 No Longer Active Vishal Hui MD Active LYRICA 50 MG CAPS 1 tab po TID PREGABALIN 83498416314 No Longer Active Vishal Hui MD Active LORATADINE 10 MG TABS 1 tab po qd LORATADINE 86582344140 No Longer Active Vishal Hui MD Active VERAPAMIL HCL ER 180 MG CR-TABS 1 tab po bid VERAPAMIL HCL 99691926680 No Longer Active Vishal Hui MD Active MIRALAX POWD 1 capfull once daily POLYETHYLENE GLYCOL 3350 45442606321 No Longer Active Vishal Hui MD Active PREDNISONE 20 MG TABS 1 tab po qd PREDNISONE 78382566859 No Longer Active Renzo Thornton DO Active LEVOFLOXACIN 500 MG TABS 1 tab po qd LEVOFLOXACIN 67646541705 No Longer Active Renzo Thornton DO Active BUSPIRONE HCL 15 MG TABS 1 tab po TID BUSPIRONE HCL 78676084478 No Longer Active Renzo Thornton DO Active BENZTROPINE MESYLATE 1 MG TABS 1 tab po qd BENZTROPINE MESYLATE 51979352036 No Longer Active Renzo Thornton DO Active ATENOLOL 25 MG TABS 1 tab po qd ATENOLOL 85377570506 No Longer Active Renzo Thornton DO Active ESCITALOPRAM OXALATE 20 MG TABS 1 tab po qd ESCITALOPRAM OXALATE 28475181087 No Longer Active Renzo Thornton DO Active ADVAIR DISKUS 250-50 MCG/DOSE AEPB 1 puff BID FLUTICASONE-SALMETEROL 17404756311 No Longer Active Renzo Thornton DO Active PREDNISONE 20 MG TAB 2 tabs daily for 3 days, 1 tab daily for 3 days, 1/2 tab daily for 2 days PREDNISONE 17828145953 No Longer Active Vishal Hui MD Active CEFDINIR 300 MG CAPS by mouth twice a day CEFDINIR 96914478297 No Longer Active Vishal Hui MD Active LANSOPRAZOLE 30 MG CPDR 1 cap po qd LANSOPRAZOLE 60853232297 No Longer Active Vishal Hui MD Active BACLOFEN 20 MG TABS 1 tab po tid BACLOFEN 83794673043 No Longer Active Vishal Hui MD Active ADVAIR DISKUS 250-50 MCG/DOSE AEPB 1 puff BID ADVAIR DISKUS 250-50 MCG/DOSE AEPB FLUTICASONE-SALMETEROL Inactive ESCITALOPRAM OXALATE 20 MG TABS 1 tab po qd ESCITALOPRAM OXALATE 20 MG TABS 754242 ESCITALOPRAM OXALATE Inactive ATENOLOL 25 MG TABS 1 tab po qd ATENOLOL 25 MG TABS 873188 ATENOLOL Inactive BENZTROPINE MESYLATE 1 MG TABS 1 tab po qd BENZTROPINE MESYLATE 1 MG TABS 496255 BENZTROPINE MESYLATE Inactive BUSPIRONE HCL 15 MG TABS 1 tab po TID BUSPIRONE HCL 15 MG TABS 207369 BUSPIRONE HCL Inactive LEVOFLOXACIN 500 MG TABS 1 tab po qd LEVOFLOXACIN 500 MG TABS 906783 LEVOFLOXACIN Inactive PREDNISONE 20 MG TABS 1 tab po qd PREDNISONE 20 MG TABS 208950 PREDNISONE Inactive MIRALAX POWD 1 capfull once daily MIRALAX POWD 424283 POLYETHYLENE GLYCOL 3350 Inactive VERAPAMIL HCL ER 180 MG CR-TABS 1 tab po bid VERAPAMIL HCL ER 180 MG CR-TABS VERAPAMIL HCL Inactive LORATADINE 10 MG TABS 1 tab po qd LORATADINE 10 MG TABS 355330 LORATADINE Inactive LYRICA 50 MG CAPS 1 tab po TID LYRICA 50 MG CAPS PREGABALIN Inactive ZALEPLON 10 MG CAPS 1 cap po every other night ZALEPLON 10 MG CAPS 972049 ZALEPLON Inactive SAPHRIS 5 MG SUBL 1 tab po qd SAPHRIS 5 MG SUBL ASENAPINE MALEATE Inactive TRAZODONE HCL 50 MG TABS 1/2 tab po qd prn for anxiety TRAZODONE HCL 50 MG TABS 090932 TRAZODONE HCL Inactive LATUDA 20 MG TABS Take one by mouth daily LATUDA 20 MG TABS LURASIDONE HCL Inactive LISINOPRIL 20 MG TABS 1 tab po qd LISINOPRIL 20 MG TABS 894613 LISINOPRIL Inactive SAPHRIS 10 MG SUBL 1 [...] twice daily BACTRIM DS 800-160 MG TAB 465645 TRIMETHOPRIM-SULFAMETHOXAZOLE Inactive MULTIVITAMINS CAPS Take one by mouth daily MULTIVITAMINS CAPS MULTIPLE VITAMIN Inactive MELATONIN 3 MG CAPS 2 po q hs MELATONIN 3 MG CAPS 087951 MELATONIN Inactive KEFLEX 500 MG ORAL CAPS 1 cap QID by mouth KEFLEX 500 MG ORAL CAPS 893010 CEPHALEXIN Inactive CLINDAMYCIN HCL 150 MG CAPS 1 four times a day CLINDAMYCIN HCL 150 MG CAPS 974352 CLINDAMYCIN HCL Inactive DIFLUCAN 150 MG TAB 1 tablet by mouth daily DIFLUCAN 150 MG TAB 481933 FLUCONAZOLE Inactive PROZAC 20 MG CAP Take one by mouth daily PROZAC 20 MG CAP 432160 FLUOXETINE HCL Inactive IBUPROFEN 600 MG TAB 1 po TID PRN IBUPROFEN 600 MG TAB 250115 IBUPROFEN Inactive VYVANSE 40 MG CAPS 1 daily, VYVANSE 40 MG CAPS LISDEXAMFETAMINE DIMESYLATE Inactive TRAZODONE HCL 100 MG TAB take 1 at bedtime TRAZODONE HCL 100 MG TAB 023268 TRAZODONE HCL Inactive AMITRIPTYLINE HCL 100 MG TAB one at hs AMITRIPTYLINE HCL 100 MG TAB 789905 AMITRIPTYLINE HCL Inactive AMLODIPINE BESYLATE 5 MG TABS 1 tablet by mouth daily AMLODIPINE BESYLATE 5 MG TABS 487571 AMLODIPINE BESYLATE Inactive LATUDA 80 MG TABS Take one by mouth daily LATUDA 80 MG TABS LURASIDONE HCL Inactive SAPHRIS 5 MG SUBL 1 po bid SAPHRIS 5 MG SUBL ASENAPINE MALEATE Inactive PREDNISONE 20 MG TAB 2 tabs daily for 4 days, 1 tab daily for 4 days, 1/2 tab daily for 4 days PREDNISONE 20 MG TAB 298019 PREDNISONE Inactive AMBIEN 5 MG ORAL TABS 1 tab at bedtime AMBIEN 5 MG ORAL TABS 086937 ZOLPIDEM TARTRATE Inactive PROZAC 20 MG ORAL CAPS 1 tab daily PROZAC 20 MG ORAL CAPS 768827 FLUOXETINE HCL Inactive ABILIFY 15 MG ORAL TABS 1 tab daily ABILIFY 15 MG ORAL TABS 345249 ARIPIPRAZOLE Inactive METOPROLOL TARTRATE 50 MG TAB 1 po bid METOPROLOL TARTRATE 50 MG TAB 373718 METOPROLOL TARTRATE Inactive TRAMADOL HCL 50 MG TABS 1-2 po TID PRN Pain TRAMADOL HCL 50 MG TABS 401993 TRAMADOL HCL Inactive PIROXICAM 20 MG CAPS 1 cap po qd PRN Pain PIROXICAM 20 MG CAPS 555857 PIROXICAM Inactive MINIPRESS 2 MG CAPS 4 cap po at night MINIPRESS 2 MG CAPS 825269 PRAZOSIN HCL Inactive MIRALAX PACK 1 po qd PRN Constipation MIRALAX PACK 131093 POLYETHYLENE GLYCOL 3350 Inactive METOPROLOL TARTRATE 25 MG ORAL TABS 1/2 tablet twice daily for heart rate and blood pressure METOPROLOL TARTRATE 25 MG ORAL TABS 451693 METOPROLOL TARTRATE Inactive VALIUM 5 MG TAB Take 1-2 tablets daily VALIUM 5 MG TAB 891865 DIAZEPAM Inactive FLAGYL 500 MG TAB 1 tablet by mouth bid FLAGYL 500 MG TAB 586384 METRONIDAZOLE Inactive DICLOFENAC POTASSIUM TABS Take 1 tablet twice a day (pt. is not sure of the dose.) DICLOFENAC POTASSIUM TABS DICLOFENAC POTASSIUM TABS Inactive ZITHROMAX Z-EARNEST 250 MG TABS 2 today and then 1 daily for 4 days ZITHROMAX Z-EARNEST 250 MG TABS 6021081 AZITHROMYCIN Inactive PREDNISONE 20 MG TABS 2 daily for 5 days then 1 daily for 5 days PREDNISONE 20 MG TABS 449189 PREDNISONE Inactive PROAIR HFA 108 (90 BASE) MCG/ACT AERS 2 puffs four times a day as needed 2015 PROAIR HFA 108 (90 BASE) MCG/ACT AERS ALBUTEROL SULFATE Inactive HYDROCODONE-ACETAMINOPHEN 5-325 MG TABS 1 to 2 four times a day as needed for pain use until can be seen by specialist HYDROCODONE- ACETAMINOPHEN 5-325 MG TABS 388971 HYDROCODONE-ACETAMINOPHEN Inactive TESSALON PERLES 100 MG CAP 1 to 2 tablets by mouth 3 times daily as needed for cough TESSALON PERLES 100 MG CAP 744510 BENZONATATE Inactive CHANTIX STARTING MONTH EARNEST 0.5 [...] Pain 2015 DICLOFENAC SODIUM 50 MG TBEC 209660 DICLOFENAC SODIUM Inactive TOPAMAX 50 MG ORAL TABS 1 tab twice daily TOPAMAX 50 MG ORAL TABS 718027 TOPIRAMATE Inactive VIIBRYD 10 MG ORAL TABS Take 1 tablet once a day VIIBRYD 10 MG ORAL TABS VILAZODONE HCL Inactive LEVOFLOXACIN 500 MG ORAL TABS po daily LEVOFLOXACIN 500 MG ORAL TABS 828230 LEVOFLOXACIN Inactive METHYLPREDNISOLONE 4 MG ORAL TABS po daily METHYLPREDNISOLONE 4 MG ORAL TABS 140560 METHYLPREDNISOLONE Inactive OXYCODONE HCL ER 10 MG ORAL T12A 1/2 tab by mouth every 4 hours prn OXYCODONE HCL ER 10 MG ORAL T12A OXYCODONE HCL Inactive FLAGYL 500 MG TAB 1 tablet by mouth bid FLAGYL 500 MG TAB 392983 METRONIDAZOLE Inactive MONISTAT 7 COMBO PACK WOODROW 100 & 2 MG-% (9GM) VAG KIT 1 applicatorful per vagina q pm x 7 MONISTAT 7 COMBO PACK WOODROW 100 & 2 MG-% (9GM) VAG KIT MICONAZOLE NITRATE Inactive BACTRIM DS 800-160 MG TABS 1 twice a day BACTRIM DS 800-160 MG TABS 923789 SULFAMETHOXAZOLE-TRIMETHOPRIM Inactive TRAMADOL HCL 50 MG TABS 1/2-1 tab TID PRN TRAMADOL HCL 50 MG TABS 913037 TRAMADOL HCL Inactive ABILIFY MAINTENA 400 MG IM SUSR 400mg injection every 26 days ABILIFY MAINTENA 400 MG IM SUSR ARIPIPRAZOLE Inactive KLONOPIN 1 MG ORAL TABS 1 tab po TID KLONOPIN 1 MG ORAL TABS 001066 CLONAZEPAM Inactive ADVAIR DISKUS 250-50 MCG/DOSE INH AEPB 1 puff twice a day for asthma ADVAIR DISKUS 250-50 MCG/DOSE INH AEPB FLUTICASONE- SALMETEROL Inactive BENADRYL 25 MG CAP 4 po at bedtime for insomnia BENADRYL 25 MG CAP DIPHENHYDRAMINE HCL Inactive PREDNISONE 20 MG TABS 2 daily for 5 days then 1 daily for 5 days PREDNISONE 20 MG TABS 159010 PREDNISONE Inactive HYDROCODONE-ACETAMINOPHEN 5-325 MG ORAL TABS 1 tab two times a day HYDROCODONE-ACETAMINOPHEN 5-325 MG ORAL TABS 710922 HYDROCODONE-ACETAMINOPHEN Inactive ZITHROMAX Z-EARNEST 250 MG TABS 2 today and then 1 daily for 4 days ZITHROMAX Z-EARNEST 250 MG TABS 9583680 AZITHROMYCIN Inactive GUAIFENESIN-CODEINE 100-10 MG/5ML SYRP 5ml every 4 to 6 hours as needed for cough GUAIFENESIN-CODEINE 100-10 MG/5ML SYRP 010337 GUAIFENESIN-CODEINE Inactive HALOPERIDOL 10 MG ORAL TABS 1 tab q.d HALOPERIDOL 10 MG ORAL TABS 701441 HALOPERIDOL Inactive ASPIRIN 325 MG ORAL TABS 1 tab q.d ASPIRIN 325 MG ORAL TABS 085538 ASPIRIN Inactive FLUTICASONE PROPIONATE 50 MCG/ACT SUSP 2 sprays each nostril daily before bed. FLUTICASONE PROPIONATE 50 MCG/ACT SUSP 5546013 FLUTICASONE PROPIONATE Inactive ZOFRAN 4 MG TABS 1 po q6hr PRN Nausea ZOFRAN 4 MG TABS 030189 ONDANSETRON HCL Inactive CEFDINIR 300 MG CAPS by mouth twice a day CEFDINIR 300 MG CAPS 563575 CEFDINIR Inactive PREDNISONE 20 MG TAB 2 tabs daily for 3 days, 1 tab daily for 3 days, 1/2 tab daily for 2 days PREDNISONE 20 MG TAB 330974 PREDNISONE Inactive BACTRIM DS 800-160 MG TABS 1 po BID x 7 days BACTRIM DS 800-160 MG TABS 19820521 SULFAMETHOXAZOLE-TRIMETHOPRIM Inactive DIFLUCAN 150 MG TABS 1 pill every other day x 2 doses DIFLUCAN 150 MG TABS 371251 FLUCONAZOLE Inactive BACTRIM DS 800-160 MG TABS 1 pill by mouth twice daily BACTRIM DS 800-160 MG TABS 19820521 SULFAMETHOXAZOLE-TRIMETHOPRIM Inactive KEFLEX 500 MG CAP 1 po TID x 10 days KEFLEX 500 MG CAP 428426 CEPHALEXIN Inactive Advance Directives Directive Description Start [...] 369 10^3/MM^3 10*3/mm3 142-424 Lab Report: Chlamydia/GC APTIMA/[id number] - Lab chlamydia DNA probe NOT DETECTED NOT DETECTED Lab Report: Chlamydia/GC APTIMA/[id number] - Microbiology Neisseria gonorrhoeae DNA probe NOT DETECTED NOT DETECTED Lab Report: Chlamydia/GC APTIMA/21571, Urinalysis, Complete, with Reflex ... - Lab chlamydia DNA probe NOT DETECTED NOT DETECTED Lab Report: Chlamydia/GC APTIMA/56697, Urinalysis, Complete, with Reflex ... - Microbiology Neisseria gonorrhoeae DNA probe NOT DETECTED NOT DETECTED Lab Report: Chlamydia/GC APTIMA/26700, Urinalysis, Complete, with Reflex ... - Urinalysis microalbumin/total urine volume 2 mg/L Units converted. See lab report for original value. microalbumin/creatinine ratio, urine 9 MCG/MG CREAT mg/L <30 Lab Report: Comp. Metabolic Panel - Chemistry sodium, serum 142 mmol/L 362-630 3698/06/08 carbon dioxide, venous blood 27.6 mmol/L 21.0-32.0 potassium, serum 4.0 mmol/L 3.5-5.2 chloride, serum 105 mmol/L 98-107 blood glucose 95 mg/dL 65-110 urea nitrogen, blood 8 mg/dL 7-18 creatinine, serum 0.75 mg/dL 0.55-1.30 alanine aminotransferase (SGPT), serum 49 U/L 12-78 aspartate aminotransferase (SGOT), serum 28 U/L 15-37 calcium, serum 9.4 mg/dL 8.5-10.1 bilirubin, serum, total 0.30 mg/dL 0.00-1.00 sodium, serum 140 mmol/L 499-736 4955/08/08 carbon dioxide, venous blood 33.7 mmol/L 21.0-32.0 [...] mg/dL Encounters Code Encounter Date Provider Facility CPT-59029 Level 3 Est. 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 Patient 10:20:54 EXECUTIVE PRODUCER Suzan Boo [facility] CPT-89311 Level 3 Est. Patient 11:47:37 EXECUTIVE PRODUCER Ahmet Carbajal MD [facility] CPT-71025 Level 3 Est. Patient 10:40:11 EXECUTIVE PRODUCER Ahmet Carbajal MD [facility] CPT-00236 Level 3 Est. Patient 15:07:06 EXECUTIVE PRODUCER Neeraj Collins MD [facility] CPT-50616 Level 4 Est. Patient 14:45:00 EXECUTIVE PRODUCER Ahmet Carbajal MD [facility] CPT-45189 Level 3 Est. Patient 13:59:59 CDT Luigi Martínez [facility] CPT-48709 Level 3 Est. Patient 18:18:53 CDT Neeraj Collins MD [facility] CPT-61838 Level 3 Est. Patient 15:50:44 CDT Vishal Hui MD [facility] CPT-20904 Level 3 Est. Patient 11:36:17 CDT Ahmet Carbajal MD [facility] CPT-42188 Level 3 Est. Patient 13:29:16 CDT Vishal Hui MD [facility] CPT-54140 Level 3 Est. Patient 14:27:52 CDT Neeraj Collins MD [facility] CPT-65201 Level 3 Est. Patient 08:56:03 CDT Luigi Martínez [facility] CPT-20092 Level 4 Est. Patient 12:11:48 CDT Fabiola Johnson [facility] CPT-74622 Level 3 New Patient 16:53:37 CDT Albert Caldera MD [facility] CPT-33018 Level 3 Est. Patient 11:25:49 CDT Renzo Thornton DO [facility] CPT-61943 Level 3 Est. Patient 15:22:01 CDT Ahmet Carbajal MD [facility] CPT-26699 Level 4 Est. Patient 09:00:51 EXECUTIVE PRODUCER Vishal Hui MD [facility] CPT-86171 Level 3 Est. Patient 11:37:33 EXECUTIVE PRODUCER Vishal Hui MD [facility] CPT-30797 Level 3 Est. Patient 08:41:09 EXECUTIVE PRODUCER Vishal Hui MD [facility] CPT-90430 Level 4 Est. Patient 10:19:35 EXECUTIVE PRODUCER Vishal Hui MD [facility] CPT-92314 Level 3 Est. Patient 13:35:45 CDT Vishal Hui MD [facility] CPT-89140 Level 4 Est. Patient 10:08:37 CDT Vishal Hui MD [facility] CPT-80781 Level 3 Est. Patient 11:22:10 CDT Vishal Hui MD [facility] CPT-66800 Level 3 Est. Patient 11:03:32 CDT Sahara Rodriguez MD [facility]-70836 Level 3 Est. Patient 09:41:35 CDT Vishal Hui MD [facility] CPT-50176 Level 3 Est. Patient 12:00:41 CDT Neeraj Collins MD [facility]-27535 Level 3 Est. Patient 09:16:24 CDT Vishal Hui MD [facility] CPT-06275 Level 4 Est. Patient 13:59:09 CDT Neeraj Collins MD [facility]-26700 Level 3 Est. Patient 15:19:43 CDT Renzo Thornton DO [facility] CPT-47006 Level 3 Est. Patient 18:10:26 CDT Sahara Rodriguez MD [facility]-92922 Level 3 Est. Patient 14:49:50 CDT Vishal Hui MD [facility] CPT-20044 Level 4 Est. Patient 18:41:46 CDT Neeraj Collins MD [facility]-33468 Level 4 Est. Patient 09:18:38 EXECUTIVE PRODUCER Vishal Hui MD [facility] CPT-61824 Level 3 Est. Patient 14:43:55 EXECUTIVE PRODUCER Vishal Hui MD [facility] CPT-56289 Level 3 Est. Patient 15:26:33 EXECUTIVE PRODUCER Sahara Rodriguez MD PhD [facility] CPT-54890 Level 3 Est. Patient 10:32:14 EXECUTIVE PRODUCER Vishal Hui MD [facility] CPT-72256 Level 3 Est. Patient 15:12:52 EXECUTIVE PRODUCER Vishal Hui MD [facility] CPT-51091 Level 4 Est. Patient 09:19:27 CDT Vishal Hui MD [facility] CPT-24422 Level 3 Est. Patient 15:53:00 CDT Renzo Thornton [facility] CPT-00448 Level 3 Est. Patient 15:50:30 CDT Renzo Thornton [facility] CPT-76871 Level 3 Est. Patient 16:55:24 CDT Vishal Hui MD [facility] Procedures Code Procedure Name Date Entry Date Standard Description CPT-G0439 [facility] Annual Wellness Exam 09:30:58 EXECUTIVE PRODUCER CPT-55842 TSH - LAB USE ONLY 08:50:26 EXECUTIVE PRODUCER CPT-97203 CBC - LAB USE ONLY 08:50:26 EXECUTIVE PRODUCER CPT-37150 Venipuncture Draw Fee 08:50:26 EXECUTIVE PRODUCER CPT-56568 Abx/Therapy Injection 17:34:30 EXECUTIVE PRODUCER CPT-01045 Nexplanon Removal with Reinsertion 14:09:32 CDT CPT-J7307 Nexplanon (Implant) 14:09:32 CDT CPT-OV Office Visit 14:09:32 CDT CPT-21835 UA w micro - LAB USE ONLY 16:21:13 CDT CPT-44771 Wet Mount - LAB USE ONLY 16:21:13 CDT CPT-32573 First Vx - Ix admin for Medicare patients 14:37:47 CDT CPT-55006 Fluzone Preservative Free Intramuscular Suspension 14:37 :47 CDT CPT-56755 Abx/Therapy Injection 13:54:22 CDT CPT-08633 Abx/Therapy Injection 08:47:09 CDT CPT-11276 Abx/Therapy Injection 13:29:56 CDT CPT-45099 Abx/Therapy Injection 08:36:16 CDT CPT-42748 Wet Mount - LAB USE ONLY 17:44:58 CDT CPT-56708 UA w micro - LAB USE ONLY 17:44:58 CDT CPT-91449 CMP - LAB USE ONLY 17:44:58 CDT CPT-62827 Venipuncture Draw Fee 17:44:58 CDT CPT-00744 Cervical Min 4V - XRAY USE ONLY 09:01:40 CDT CPT-73111 Chest 2V Frontal and Lat - XRAY USE ONLY 11:06:31 CDT CPT-71298 EKG Trac and Interp - XRAY USE ONLY 11:31:43 CDT 08/26 CPT-J3420 Vitamin B12 1000mcg (Cyanocobalamin) 08:10:26 EXECUTIVE PRODUCER 04/12 CPT-45713 Abx/Therapy Injection 08:10:26 EXECUTIVE PRODUCER CPT-G0438 Initial Annual Wellness Exam 19:01:01 EXECUTIVE PRODUCER CPT-J3420 Vitamin B12 1000mcg (Cyanocobalamin) 16:57:46 CDT 08/14 CPT-92518 Recombivax HB Injection Suspension 5 MCG/0.5ML 08:37:50 EXECUTIVE PRODUCER CPT-70665 Immunization Single Admin 08:37:50 EXECUTIVE PRODUCER CPT-J3420 Vitamin B12 1000mcg (Cyanocobalamin) 08:32:16 EXECUTIVE PRODUCER 03/11 CPT-78058 Abx/Therapy Injection 08:32:16 EXECUTIVE PRODUCER CPT-95065 Chest 2V Frontal and Lat 11:46:38 EXECUTIVE PRODUCER CPT-97571 Venipuncture Draw Fee 09:12:45 EXECUTIVE PRODUCER CPT-J3420 Vitamin B12 1000mcg (Cyanocobalamin) 08:50:15 EXECUTIVE PRODUCER 02/08 CPT-29327 Abx/Therapy Injection 08:50:15 EXECUTIVE PRODUCER CPT-Cryo Cryotherapy 10:19:35 EXECUTIVE PRODUCER CPT-000 Give Appropriate Flu Vaccine 09:22:16 CDT CPT-J3420 Vitamin B12 1000mcg (Cyanocobalamin) 19:08:57 CDT 01/11 CPT-36346 Abx/Therapy Injection 19:08:57 CDT CPT-J3420 Vitamin B12 1000mcg (Cyanocobalamin) 08:19:08 CDT 12/11 CPT-54897 Abx/Therapy Injection 08:19:08 CDT CPT-J3420 Vitamin B12 1000mcg (Cyanocobalamin) 14:48:00 CDT 11/09 CPT-12437 Abx/Therapy Injection 14:47:59 CDT CPT-J3420 Vitamin B12 1000mcg (Cyanocobalamin) 08:34:04 CDT 10/09 CPT-84865 Abx/Therapy Injection 08:34:04 CDT CPT-J3420 Vitamin B12 1000mcg (Cyanocobalamin) 09:18:52 CDT 09/11 CPT-67534 Abx/Therapy Injection 09:18:52 CDT CPT-J3420 Vitamin B12 1000mcg (Cyanocobalamin) 08:35:44 CDT 09/04 CPT-77783 Abx/Therapy Injection 08:35:44 CDT CPT-58630 Immunization Single Admin 11:07:16 CDT CPT-21848 Hepatitis B adult IM 11:07:16 CDT CPT-J3420 Vitamin B12 1000mcg (Cyanocobalamin) 11:00:49 CDT 08/28 CPT-J1040 Depo Medrol 80 mg (Methyl Prednisolone Acetate) 11:00: 49 CDT CPT-07316 Abx/Therapy Injection 11:00:49 CDT CPT-J1040 Depo Medrol 80 mg (Methyl Prednisolone Acetate) 09:16: 23 CDT CPT-J3420 Vitamin B12 1000mcg (Cyanocobalamin) 08:27:05 CDT 08/20 CPT-51864 Abx/Therapy Injection 08:27:05 CDT CPT-52555 Recombivax HB Injection Suspension 5 MCG/0.5ML 10:00:41 CDT CPT-88457 Administration single or combination vaccine inc oral 10 :00:41 CDT CPT-60191 Sono transvag pelvis non OB uterus ovaries cervix 16:36: 57 CDT CPT-20785 LS spine comp w obliq 09:50:55 EXECUTIVE PRODUCER CPT-63561 Abd compl w upright 09:50:55 EXECUTIVE PRODUCER CPT-J1100 Decadron 4mg (Dexamethasone) 15:51:24 EXECUTIVE PRODUCER CPT-J1030 Depo Medrol 40 mg (Methyl Prednisolone Acetate) 15:51: 24 EXECUTIVE PRODUCER CPT-84681 Abx/Therapy Injection 15:51:24 EXECUTIVE PRODUCER CPT-J1100 Decadron 4mg (Dexamethasone) 15:26:33 EXECUTIVE PRODUCER CPT-J1030 Depo Medrol 40 mg (Methyl Prednisolone Acetate) 15:26: 33 EXECUTIVE PRODUCER CPT-01694 Sono retroperitoneal complete kidneys and bladder 17:15: 30 CDT CPT-63100 Abd compl w upright 16:09:25 CDT CPT-J1100 Decadron 8mg (Dexamethasone) 17:07:57 CDT CPT-53477 Abx/Therapy Injection 17:07:57 CDT CPT-J1100 Decadron 8mg (Dexamethasone) 16:55:24 CDT CPT-60609 Chest 2V Frontal and Lat 16:32:44 CDT
--- OUTSIDE RECORDS SUMMARY | 2016-11-04 22:13 | XMS REPORT | Clinical Summary ---
Author Author Admin, E Organization [facility] Serious Business Address Unknown Phone Unavailable Allergies, Adverse Reactions, [...] sites Morbid obesity 278.01 Active Juliet Kimbrough MOBILE APPLICATION ARCHITECT Morbid obesity 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 Active Juliet Kimbrough MOBILE APPLICATION ARCHITECT Dependence on other enabling machines and devices [...] Shortness of breath 786.05 Active Fabiola Johnson MOBILE APPLICATION ARCHITECT Shortness of breath Nocturnal hypoxia 799.02 Active Fabiola Johnson MOBILE APPLICATION ARCHITECT Hypoxemia Neck pain 723.1 Active Jilljanee Martínez MOBILE APPLICATION ARCHITECT Cervicalgia Vaginal discharge 623.5 Active Neeraj Collins [...] Leukocytosis ICD-288.60 Jmi Hui MD UTI ICD-599.0 Jim Hui MD [...] each nostril daily before bed. FLUTICASONE PROPIONATE 23307297722 Active Fabiola Johnson APRN Active VERAPAMIL HCL ER 120 MG ORAL CR-TABS 1 tab po daily for blood pressure 09/27 VERAPAMIL HCL 88791695291 Active Fabiola Johnson APRN Active ADZENYS XR-ODT 6.3 MG ORAL TBED 1 tab po daily for ADHD AMPHETAMINE 47658906371 Active Fabiola Johnson APRN Active BENADRYL 25 MG CAP 4 po at bedtime for insomnia DIPHENHYDRAMINE HCL 91529229818 Active Fabiola Johnson APRN Active KLONOPIN 1 MG ORAL TABS 1 tab po TID CLONAZEPAM 18915840386 Active Fabiola Johnson APRN Active VALIUM 5 MG TAB Take 1-2 tablets daily DIAZEPAM 42811561782 No Longer Active Fabiola Johnson APRN Active METOPROLOL TARTRATE 25 MG ORAL TABS 1/2 tablet twice daily for heart rate and blood pressure METOPROLOL TARTRATE 27075874030 No Longer Active Fabiola Johnson APRN Active MIRALAX ORAL POWD 17GMS DAILY IN WATER POLYETHYLENE GLYCOL 3350 79751739007 Active Vishal Hui MD Active VIIBRYD 10 MG ORAL TABS Take 1 tablet once a day VILAZODONE HCL 43417172070 Active Ahmet Carbajal MD Active DICLOFENAC POTASSIUM TABS Take 1 tablet twice a day (pt. is not sure of the dose.) DICLOFENAC POTASSIUM TABS 69935133939 Active Ahmet Carbajal MD Active MIRALAX PACK 1 po qd PRN Constipation POLYETHYLENE GLYCOL 3350 50669278993 No Longer Active Ahmet Carbajal MD Active MINIPRESS 2 MG CAPS 4 cap po at night PRAZOSIN HCL 56196844530 No Longer Active Ahmet Carbajal MD Active PIROXICAM 20 MG CAPS 1 cap po qd PRN Pain PIROXICAM 02657328713 No Longer Active Ahmet Carbajal MD Active TRAMADOL HCL 50 MG TABS 1-2 po TID PRN Pain TRAMADOL HCL 99796426426 No Longer Active Ahmet Carbajal MD Active METOPROLOL TARTRATE 50 MG TAB 1 po bid METOPROLOL TARTRATE 23792971602 No Longer Active Ahmet Carbajal MD Active ABILIFY 15 MG ORAL TABS 1 tab daily ARIPIPRAZOLE 15937017198 No Longer Active Ahmet Carbajal MD Active PROZAC 20 MG ORAL CAPS 1 tab daily FLUOXETINE HCL 40230227536 No Longer Active Ahmet Carbajal MD Active AMBIEN 5 MG ORAL TABS 1 tab at bedtime ZOLPIDEM TARTRATE 74632264825 No Longer Active Ahmet Carbajal MD Active PREDNISONE 20 MG TAB 2 tabs daily for 4 days, 1 tab daily for 4 days, 1/2 tab daily for 4 days PREDNISONE 09670794501 No Longer Active Ahmet Carbajal MD Active KEFLEX 500 MG CAP 1 po TID x 10 days CEPHALEXIN 60376787304 No Longer Active Vishal Hui MD Active ABILIFY MAINTENA 400 MG IM SUSR Injection once per month ARIPIPRAZOLE 58172435170 Active Juliet Kimbrough APRN Active IMITREX 50 MG ORAL TABS 1/2 tab every 6 hours prn SUMATRIPTAN SUCCINATE 63139291001 Active Luigi Martínez APRN Active TOPAMAX 50 MG ORAL TABS 1 tab twice daily TOPIRAMATE 80625033173 Active Vishal Hui MD Active SAPHRIS 5 MG SUBL 1 po bid ASENAPINE MALEATE 65304246230 No Longer Active Luigi Martínez MOBILE APPLICATION ARCHITECT Active LATUDA 80 MG TABS Take one by mouth daily LURASIDONE HCL 81967955288 No Longer Active Luigi Martínez MOBILE APPLICATION ARCHITECT Active AMLODIPINE BESYLATE 5 MG TABS 1 tablet by mouth daily AMLODIPINE BESYLATE 82366848448 No Longer Active Luigi Martínez APRN Active AMITRIPTYLINE HCL 100 MG TAB one at hs AMITRIPTYLINE HCL 54869785030 No Longer Active Vsihal Hui MD Active TRAZODONE HCL 100 MG TAB take 1 at bedtime TRAZODONE HCL 57391463062 No Longer Active iVshal Hui MD Active VYVANSE 40 MG CAPS 1 daily, LISDEXAMFETAMINE DIMESYLATE 94916710888 No Longer Active Vishal Hui MD Active IBUPROFEN 600 MG TAB 1 po TID PRN IBUPROFEN 77283445588 No Longer Active Vishal Hui MD Active PROZAC 20 MG CAP Take one by mouth daily FLUOXETINE HCL 28476430496 No Longer Active Vishal Hui MD Active ZOFRAN 4 MG TABS 1 po q6hr PRN Nausea ONDANSETRON HCL Active Vishal Hui MD Active BACTRIM DS 800-160 MG TABS 1 pill by mouth twice daily SULFAMETHOXAZOLE-TRIMETHOPRIM 34385452770 No Longer Active Sahara Rodirguez MD PhD Active DIFLUCAN 150 MG TAB 1 tablet by mouth daily FLUCONAZOLE 06609521711 No Longer Active Vishal Hui MD Active TIZANIDINE HCL 4 MG TABS 1 po q6hr PRN Muscle Spasm/Back Pain TIZANIDINE HCL 43533382172 Active Vishal Hui MD Active CLINDAMYCIN HCL 150 MG CAPS 1 four times a day CLINDAMYCIN HCL 82982042613 No Longer Active Neeraj Collins MD Active KEFLEX 500 MG ORAL CAPS 1 cap QID by mouth CEPHALEXIN 04005435864 No Longer Active Neeraj Collins MD Active DIFLUCAN 150 MG TABS 1 pill every other day x 2 doses FLUCONAZOLE 60060265533 No Longer Active Sahara Rodriguez MD PhD Active MELATONIN 3 MG CAPS 2 po q hs MELATONIN 13597329189 No Longer Active Sahara Rodriguez MD PhD Active MULTIVITAMINS CAPS Take one by mouth daily MULTIPLE VITAMIN 12374836639 No Longer Active Sahara Rodriguez MD PhD Active BACTRIM DS 800-160 MG TAB 1 tab by mouth twice daily TRIMETHOPRIM-SULFAMETHOXAZOLE 56390222420 No Longer Active Sahara Rodriguez MD PhD Active [facility] PROBIOTIC ORAL CHEW 2 daily po PROBIOTIC PRODUCT 39085263866 No Longer Active Sahara Rodriguez MD PhD Active BACTRIM DS 800-160 MG TABS 1 po BID x 7 days SULFAMETHOXAZOLE-TRIMETHOPRIM 00773925591 No Longer Active Vishal Hui MD Active CHANTIX STARTING MONTH EARNEST 0.5 MG X 11 & 1 MG X 42 TABS 0.5mg daily for 3 days , then 0.5mg BID for 4 days, then 1mg BID VARENICLINE TARTRATE 44848936096 No Longer Active TAMARA Gray Active VERAPAMIL HCL CR 120 MG TAB CR 1 po bid VERAPAMIL HCL 85916230173 No Longer Active Vishal Hui MD Active METOPROLOL SUCCINATE 50 MG TB24 1 tablet by mouth daily METOPROLOL SUCCINATE 70585995636 No Longer Active Vishal Hui MD Active SAPHRIS 10 MG SUBL 1 tab po bid ASENAPINE MALEATE 78130600991 No Longer Active Vishal Hui MD Active LISINOPRIL 20 MG TABS 1 tab po qd LISINOPRIL 18744359683 No Longer Active Vishal Hui MD Active LATUDA 20 MG TABS Take one by mouth daily LURASIDONE HCL 48642872680 No Longer Active Vishal Hui MD Active TRAZODONE HCL 50 MG TABS 1/2 tab po qd prn for anxiety TRAZODONE HCL 48659878603 No Longer Active Vishal Hui MD Active OMEPRAZOLE 20 MG TBEC 1 po q a.m. 30min prior to first food intake OMEPRAZOLE 98348025466 Active Vishal Hui MD Active RANITIDINE HCL 150 MG CAPS 1 twice a day RANITIDINE HCL 99363003646 Active Jillina Johnl MOBILE APPLICATION ARCHITECT Active LINZESS 290 MCG CAPS Take one by mouth daily LINACLOTIDE 50984717529 No Longer Active Vishal Hui MD Active SAPHRIS 5 MG SUBL 1 tab po qd ASENAPINE MALEATE 31673370804 No Longer Active Vishal Hui MD Active ZALEPLON 10 MG CAPS 1 cap po every other night ZALEPLON 24482005993 No Longer Active Vishal Hui MD Active LYRICA 50 MG CAPS 1 tab po TID PREGABALIN 70451588316 No Longer Active Vishal Hui MD Active LORATADINE 10 MG TABS 1 tab po qd LORATADINE 91685734756 No Longer Active Vishal Hui MD Active VERAPAMIL HCL ER 180 MG CR-TABS 1 tab po bid VERAPAMIL HCL 24374298529 No Longer Active Vishal Hui MD Active MIRALAX POWD 1 capfull once daily POLYETHYLENE GLYCOL 3350 50821668643 No Longer Active Vishal Hui MD Active PREDNISONE 20 MG TABS 1 tab po qd PREDNISONE 56958042509 No Longer Active Renzo Thornton DO Active LEVOFLOXACIN 500 MG TABS 1 tab po qd LEVOFLOXACIN 23314472652 No Longer Active Renzo Thornton DO Active BUSPIRONE HCL 15 MG TABS 1 tab po TID BUSPIRONE HCL 14045813854 No Longer Active Renzo Thornton DO Active BENZTROPINE MESYLATE 1 MG TABS 1 tab po qd BENZTROPINE MESYLATE 38051868057 No Longer Active Renzo Thornton DO Active ATENOLOL 25 MG TABS 1 tab po qd ATENOLOL 63031247995 No Longer Active Renzo Thornton DO Active ESCITALOPRAM OXALATE 20 MG TABS 1 tab po qd ESCITALOPRAM OXALATE 24726470936 No Longer Active Renzo Thornton DO Active ADVAIR DISKUS 250-50 MCG/DOSE AEPB 1 puff BID FLUTICASONE-SALMETEROL 98009103416 No Longer Active Renzo Thornton DO Active PREDNISONE 20 MG TAB 2 tabs daily for 3 days, 1 tab daily for 3 days, 1/2 tab daily for 2 days PREDNISONE 98625682202 No Longer Active Vishal Hui MD Active CEFDINIR 300 MG CAPS by mouth twice a day CEFDINIR 69664291219 No Longer Active Vishal Hui MD Active LANSOPRAZOLE 30 MG CPDR 1 cap po qd LANSOPRAZOLE 77623853448 No Longer Active Vishal Hui MD Active BACLOFEN 20 MG TABS 1 tab po tid BACLOFEN 74004478065 No Longer Active Vishal Hui MD Active ADVAIR DISKUS 250-50 MCG/DOSE AEPB 1 puff BID ADVAIR DISKUS 250-50 MCG/DOSE AEPB FLUTICASONE-SALMETEROL Inactive ESCITALOPRAM OXALATE 20 MG TABS 1 tab po qd ESCITALOPRAM OXALATE 20 MG TABS 247777 ESCITALOPRAM OXALATE Inactive ATENOLOL 25 MG TABS 1 tab po qd ATENOLOL 25 MG TABS 251824 ATENOLOL Inactive BENZTROPINE MESYLATE 1 MG TABS 1 tab po qd BENZTROPINE MESYLATE 1 MG TABS 715480 BENZTROPINE MESYLATE Inactive BUSPIRONE HCL 15 MG TABS 1 tab po TID BUSPIRONE HCL 15 MG TABS 766065 BUSPIRONE HCL Inactive LEVOFLOXACIN 500 MG TABS 1 tab po qd LEVOFLOXACIN 500 MG TABS 253482 LEVOFLOXACIN Inactive PREDNISONE 20 MG TABS 1 tab po qd PREDNISONE 20 MG TABS 588060 PREDNISONE Inactive MIRALAX POWD 1 capfull once daily MIRALAX POWD 930412 POLYETHYLENE GLYCOL 3350 Inactive VERAPAMIL HCL ER 180 MG CR-TABS 1 tab po bid VERAPAMIL HCL ER 180 MG CR-TABS VERAPAMIL HCL Inactive LORATADINE 10 MG TABS 1 tab po qd LORATADINE 10 MG TABS 574091 LORATADINE Inactive LYRICA 50 MG CAPS 1 tab po TID LYRICA 50 MG CAPS PREGABALIN Inactive ZALEPLON 10 MG CAPS 1 cap po every other night ZALEPLON 10 MG CAPS 603175 ZALEPLON Inactive SAPHRIS 5 MG SUBL 1 tab po qd SAPHRIS 5 MG SUBL ASENAPINE MALEATE Inactive TRAZODONE HCL 50 MG TABS 1/2 tab po qd prn for anxiety TRAZODONE HCL 50 MG TABS 386179 TRAZODONE HCL Inactive LATUDA 20 MG TABS Take one by mouth daily LATUDA 20 MG TABS LURASIDONE HCL Inactive LISINOPRIL 20 MG TABS 1 tab po qd LISINOPRIL 20 MG TABS 325397 LISINOPRIL Inactive SAPHRIS 10 MG SUBL 1 [...] twice daily BACTRIM DS 800-160 MG TAB 145001 TRIMETHOPRIM-SULFAMETHOXAZOLE Inactive MULTIVITAMINS CAPS Take one by mouth daily MULTIVITAMINS CAPS MULTIPLE VITAMIN Inactive MELATONIN 3 MG CAPS 2 po q hs MELATONIN 3 MG CAPS 170517 MELATONIN Inactive KEFLEX 500 MG ORAL CAPS 1 cap QID by mouth KEFLEX 500 MG ORAL CAPS 253987 CEPHALEXIN Inactive CLINDAMYCIN HCL 150 MG CAPS 1 four times a day CLINDAMYCIN HCL 150 MG CAPS 876674 CLINDAMYCIN HCL Inactive DIFLUCAN 150 MG TAB 1 tablet by mouth daily DIFLUCAN 150 MG TAB 212933 FLUCONAZOLE Inactive PROZAC 20 MG CAP Take one by mouth daily PROZAC 20 MG CAP 516340 FLUOXETINE HCL Inactive IBUPROFEN 600 MG TAB 1 po TID PRN IBUPROFEN 600 MG TAB 036184 IBUPROFEN Inactive VYVANSE 40 MG CAPS 1 daily, VYVANSE 40 MG CAPS LISDEXAMFETAMINE DIMESYLATE Inactive TRAZODONE HCL 100 MG TAB take 1 at bedtime TRAZODONE HCL 100 MG TAB 439023 TRAZODONE HCL Inactive AMITRIPTYLINE HCL 100 MG TAB one at hs AMITRIPTYLINE HCL 100 MG TAB 760895 AMITRIPTYLINE HCL Inactive AMLODIPINE BESYLATE 5 MG TABS 1 tablet by mouth daily AMLODIPINE BESYLATE 5 MG TABS 219692 AMLODIPINE BESYLATE Inactive LATUDA 80 MG TABS Take one by mouth daily LATUDA 80 MG TABS LURASIDONE HCL Inactive SAPHRIS 5 MG SUBL 1 po bid SAPHRIS 5 MG SUBL ASENAPINE MALEATE Inactive PREDNISONE 20 MG TAB 2 tabs daily for 4 days, 1 tab daily for 4 days, 1/2 tab daily for 4 days PREDNISONE 20 MG TAB 491577 PREDNISONE Inactive AMBIEN 5 MG ORAL TABS 1 tab at bedtime AMBIEN 5 MG ORAL TABS 288052 ZOLPIDEM TARTRATE Inactive PROZAC 20 MG ORAL CAPS 1 tab daily PROZAC 20 MG ORAL CAPS 160674 FLUOXETINE HCL Inactive ABILIFY 15 MG ORAL TABS 1 tab daily ABILIFY 15 MG ORAL TABS 811694 ARIPIPRAZOLE Inactive METOPROLOL TARTRATE 50 MG TAB 1 po bid METOPROLOL TARTRATE 50 MG TAB 325794 METOPROLOL TARTRATE Inactive TRAMADOL HCL 50 MG TABS 1-2 po TID PRN Pain TRAMADOL HCL 50 MG TABS 846177 TRAMADOL HCL Inactive PIROXICAM 20 MG CAPS 1 cap po qd PRN Pain PIROXICAM 20 MG CAPS 545013 PIROXICAM Inactive MINIPRESS 2 MG CAPS 4 cap po at night MINIPRESS 2 MG CAPS 622308 PRAZOSIN HCL Inactive MIRALAX PACK 1 po qd PRN Constipation MIRALAX PACK 316086 POLYETHYLENE GLYCOL 3350 Inactive METOPROLOL TARTRATE 25 MG ORAL TABS 1/2 tablet twice daily for heart rate and blood pressure METOPROLOL TARTRATE 25 MG ORAL TABS 787150 METOPROLOL TARTRATE Inactive VALIUM 5 MG TAB Take 1-2 tablets daily VALIUM 5 MG TAB 230268 DIAZEPAM Inactive CEFDINIR 300 MG CAPS by mouth twice a day CEFDINIR 300 MG CAPS 511701 CEFDINIR Inactive PREDNISONE 20 MG TAB 2 tabs daily for 3 days, 1 tab daily for 3 days, 1/2 tab daily for 2 days PREDNISONE 20 MG TAB 492701 PREDNISONE Inactive BACTRIM DS 800-160 MG TABS 1 po BID x 7 days BACTRIM DS 800-160 MG TABS 19820521 SULFAMETHOXAZOLE-TRIMETHOPRIM Inactive DIFLUCAN 150 MG TABS 1 pill every other day x 2 doses DIFLUCAN 150 MG TABS 304548 FLUCONAZOLE Inactive BACTRIM DS 800-160 MG TABS 1 pill by mouth twice daily BACTRIM DS 800-160 MG TABS 19820521 SULFAMETHOXAZOLE-TRIMETHOPRIM Inactive KEFLEX 500 MG CAP 1 po TID x 10 days KEFLEX 500 MG CAP 814053 CEPHALEXIN Inactive Advance Directives Directive Description Start [...] % 11.6-14.8 platelet count 394 10^3/MM^3 10*3/mm3 448-197 9085/01/11 leukocyte count, blood 13.8 10^3/MM^3 10*3/mm3 4.6-10.2 [...] Panel - Chemistry sodium, serum 139 mmol/L 047-258 9365/12/03 carbon dioxide, venous blood 28.5 mmol/L 21.0-32.0 [...] 5.5 % 4.3-6.0 cholesterol, serum 159 mg/dL 124-140 6376/12/03 triglyceride, serum, fasting 118 mg/dL 30-200 HDL [...] Panel - Chemistry sodium, serum 139 mmol/L 312-432 4600/12/22 carbon dioxide, venous blood 26.8 mmol/L 21.0-32.0 potassium, serum 4.2 mmol/L 3.5-5.2 chloride, serum 103 mmol/L 98-107 blood glucose 115 mg/dL 65-110 urea nitrogen, blood 20 mg/dL 7-18 creatinine, serum 0.90 mg/dL 0.55-1.30 alanine aminotransferase (SGPT), serum 38 U/L aspartate aminotransferase (SGOT), serum 19 U/L 15-37 calcium, serum 8.6 mg/dL 8.5-10.1 bilirubin, serum, total 0.30 mg/dL 0.00-1.00 sodium, serum 139 mmol/L 926-676 8668/01/11 carbon dioxide, venous blood 26.6 mmol/L 21.0-32.0 potassium, serum 4.1 mmol/L 3.5-5.2 chloride, serum 100 mmol/L 98-107 blood glucose 86 mg/dL 65-110 urea nitrogen, blood 16 mg/dL 7-18 creatinine, serum 1.00 mg/dL 0.55-1.30 alanine aminotransferase (SGPT), serum 48 U/L 78 aspartate aminotransferase (SGOT), serum 17 U/L 15-37 calcium, serum 9.1 mg/dL 8.5-10.1 bilirubin, serum, total 0.40 mg/dL 0.00-1.00 sodium, serum 142 mmol/L 926-471 9664/06/08 carbon dioxide, venous blood 27.6 mmol/L 21.0-32.0 potassium, serum 4.0 mmol/L 3.5-5.2 chloride, serum 105 mmol/L 98-107 blood glucose 95 mg/dL 65-110 urea nitrogen, blood 8 mg/dL 7-18 creatinine, serum 0.75 mg/dL 0.55-1.30 alanine aminotransferase (SGPT), serum 49 U/L 12-78 aspartate aminotransferase (SGOT), serum 28 U/L 15-37 calcium, serum 9.4 mg/dL 8.5-10.1 bilirubin, serum, total 0.30 mg/dL 0.00-1.00 sodium, serum 140 mmol/L 945-883 7763/08/08 carbon dioxide, venous blood 33.7 mmol/L 21.0-32.0 [...] Rate - Chemistry sodium, serum 139 mmol/L 325-447 7931/12/11 carbon dioxide, venous blood 25.4 mmol/L 21.0-32.0 [...] mg/dL Encounters Code Encounter Date Provider Facility CPT-58697 Level 3 Est. Patient 14:27:52 CDT Neeraj Collins MD [facility] CPT-28983 Level 3 Est. Patient 08:56:03 CDT Luigi Martínez [facility] CPT-80707 Level 4 Est. Patient 12:11:48 CDT Fabiola Johnson [facility] CPT-16247 Level 3 New Patient 16:53:37 CDT Albert Caldera MD [facility] CPT-78329 Level 3 Est. Patient 11:25:49 CDT Renzo Thornton DO [facility] CPT-35903 Level 3 Est. Patient 15:22:01 CDT Ahmet Carbajal MD [facility] CPT-15358 Level 4 Est. Patient 09:00:51 GM MOBILE Vishal Hui MD [facility] CPT-20849 Level 3 Est. Patient 11:37:33 GM MOBILE Vishal Hui MD [facility] CPT-43253 Level 3 Est. Patient 08:41:09 GM MOBILE Vishal Hui MD [facility] CPT-30789 Level 4 Est. Patient 10:19:35 GM MOBILE Vishal Hui MD [facility] CPT-76750 Level 3 Est. Patient 13:35:45 CDT Vishal Hui MD [facility] CPT-93846 Level 4 Est. Patient 10:08:37 CDT Vishal Hui MD [facility] CPT-97762 Level 3 Est. Patient 11:22:10 CDT Vishal Hui MD [facility] CPT-95176 Level 3 Est. Patient 11:03:32 CDT Sahara Rodriguez MD, PhD [facility] CPT-25435 Level 3 Est. Patient 09:41:35 CDT Vishal Hui MD [facility] CPT-01960 Level 3 Est. Patient 12:00:41 CDT Neeraj Collins MD [facility] CPT-61234 Level 3 Est. Patient 09:16:24 CDT Vishal Hui MD [facility] CPT-68562 Level 4 Est. Patient 13:59:09 CDT Neeraj Collins MD [facility] CPT-47052 Level 3 Est. Patient 15:19:43 CDT Renzo Thornton DO [facility] CPT-14607 Level 3 Est. Patient 18:10:26 CDT Sahara Rodriguez MD [facility]-97398 Level 3 Est. Patient 14:49:50 CDT Vishal Hui MD [facility] CPT-85176 Level 4 Est. Patient 18:41:46 CDT Neeraj Collins MD [facility] CPT-66051 Level 4 Est. Patient 09:18:38 GM MOBILE Vishal Hui MD [facility] CPT-81034 Level 3 Est. Patient 14:43:55 GM MOBILE Vishal Hui MD [facility] CPT-41985 Level 3 Est. Patient 15:26:33 GM MOBILE Sahara Rodriguez MD PhD [facility] CPT-92516 Level 3 Est. Patient 10:32:14 GM MOBILE Vishal Hui MD [facility] CPT-81477 Level 3 Est. Patient 15:12:52 GM MOBILE Vishal Hui MD [facility] CPT-58362 Level 4 Est. Patient 09:19:27 CDT Vishal Hui MD [facility] CPT-15971 Level 3 Est. Patient 15:53:00 CDT Renzo Thornton DO [facility] CPT-01588 Level 3 Est. Patient 15:50:30 CDT Renzo Thornton DO [facility] CPT-60815 Level 3 Est. Patient 16:55:24 CDT Vishal Hui MD [facility] Procedures Code Procedure Name Date Entry Date Standard Description CPT-43469 Wet Mount - LAB USE ONLY 17:44:58 CDT CPT-95717 UA w micro - LAB USE ONLY 17:44:58 CDT CPT-06012 CMP - LAB USE ONLY 17:44:58 CDT CPT-99781 Venipuncture Draw Fee 17:44:58 CDT CPT-27579 Cervical Min 4V - XRAY USE ONLY 09:01:40 CDT CPT-29460 Chest 2V Frontal and Lat - XRAY USE ONLY 11:06:31 CDT CPT-09945 EKG Trac and Interp - XRAY USE ONLY 11:31:43 CDT 08/26 CPT-J3420 Vitamin B12 1000mcg (Cyanocobalamin) 08:10:26 GM MOBILE 04/12 CPT-58335 Abx/Therapy Injection 08:10:26 GM MOBILE CPT-G0438 Initial Annual Wellness Exam 19:01:01 GM MOBILE CPT-J3420 Vitamin B12 1000mcg (Cyanocobalamin) 16:57:46 CDT 08/14 CPT-34918 Recombivax HB Injection Suspension 5 MCG/0.5ML 08:37:50 GM MOBILE CPT-00381 Immunization Single Admin 08:37:50 GM MOBILE CPT-J3420 Vitamin B12 1000mcg (Cyanocobalamin) 08:32:16 GM MOBILE 03/11 CPT-86895 Abx/Therapy Injection 08:32:16 GM MOBILE CPT-03391 Chest 2V Frontal and Lat 11:46:38 GM MOBILE CPT-60725 Venipuncture Draw Fee 09:12:45 GM MOBILE CPT-J3420 Vitamin B12 1000mcg (Cyanocobalamin) 08:50:15 GM MOBILE 02/08 CPT-06285 Abx/Therapy Injection 08:50:15 GM MOBILE CPT-Cryo Cryotherapy 10:19:35 GM MOBILE CPT-000 Give Appropriate Flu Vaccine 09:22:16 CDT CPT-J3420 Vitamin B12 1000mcg (Cyanocobalamin) 19:08:57 CDT 01/11 CPT-45421 Abx/Therapy Injection 19:08:57 CDT CPT-J3420 Vitamin B12 1000mcg (Cyanocobalamin) 08:19:08 CDT 12/11 CPT-32289 Abx/Therapy Injection 08:19:08 CDT CPT-J3420 Vitamin B12 1000mcg (Cyanocobalamin) 14:48:00 CDT 11/09 CPT-52374 Abx/Therapy Injection 14:47:59 CDT CPT-J3420 Vitamin B12 1000mcg (Cyanocobalamin) 08:34:04 CDT 10/09 CPT-10296 Abx/Therapy Injection 08:34:04 CDT CPT-J3420 Vitamin B12 1000mcg (Cyanocobalamin) 09:18:52 CDT 09/11 CPT-15928 Abx/Therapy Injection 09:18:52 CDT CPT-J3420 Vitamin B12 1000mcg (Cyanocobalamin) 08:35:44 CDT 09/04 CPT-14577 Abx/Therapy Injection 08:35:44 CDT CPT-45950 Immunization Single Admin 11:07:16 CDT CPT-74841 Hepatitis B adult IM 11:07:16 CDT CPT-J3420 Vitamin B12 1000mcg (Cyanocobalamin) 11:00:49 CDT 08/28 CPT-J1040 Depo Medrol 80 mg (Methyl Prednisolone Acetate) 11:00: 49 CDT CPT-29493 Abx/Therapy Injection 11:00:49 CDT CPT-J1040 Depo Medrol 80 mg (Methyl Prednisolone Acetate) 09:16: 23 CDT CPT-J3420 Vitamin B12 1000mcg (Cyanocobalamin) 08:27:05 CDT 08/20 CPT-89015 Abx/Therapy Injection 08:27:05 CDT CPT-43770 Recombivax HB Injection Suspension 5 MCG/0.5ML 10:00:41 CDT CPT-67490 Administration single or combination vaccine inc oral 10 :00:41 CDT CPT-00023 Sono transvag pelvis non OB uterus ovaries cervix 16:36: 57 CDT CPT-41451 LS spine comp w obliq 09:50:55 GM MOBILE CPT-83902 Abd compl w upright 09:50:55 GM MOBILE CPT-J1100 Decadron 4mg (Dexamethasone) 15:51:24 GM MOBILE CPT-J1030 Depo Medrol 40 mg (Methyl Prednisolone Acetate) 15:51: 24 GM MOBILE CPT-94960 Abx/Therapy Injection 15:51:24 GM MOBILE CPT-J1100 Decadron 4mg (Dexamethasone) 15:26:33 GM MOBILE CPT-J1030 Depo Medrol 40 mg (Methyl Prednisolone Acetate) 15:26: 33 GM MOBILE CPT-08039 Sono retroperitoneal complete kidneys and bladder 17:15: 30 CDT CPT-27297 Abd compl w upright 16:09:25 CDT CPT-J1100 Decadron 8mg (Dexamethasone) 17:07:57 CDT CPT-73952 Abx/Therapy Injection 17:07:57 CDT CPT-J1100 Decadron 8mg (Dexamethasone) 16:55:24 CDT CPT-93182 Chest 2V Frontal and Lat 16:32:44 CDT
--- OUTSIDE RECORDS SUMMARY | 2016-11-04 22:13 | XMS REPORT ---
Author Author [facility] Medical Staff Organization [facility] Address [address] [place], [place] [id number] Phone [phone] Care Team Providers Care Certified Solid Waste Facility Operator Name Role Phone DENICE OCHOA MD, PP [phone] Summary purpose TRANSITION OF CARE AUTO GENERATION [...] Code Type Description Date Performed Performing Physician [id number] CPT-4 ALS 1 06-24-2015 OLGA PATEL A0425 CPT-4 GROUND MILEAGE 06-24-2015 OLGAKimberly PATEL Functional status No functional or cognitive [...]
--- OUTSIDE RECORDS SUMMARY | 2016-11-04 22:14 | XMS REPORT | Clinical Summary ---
Author Author Admin, E Organization [employer] Address Unknown Phone Unavailable Allergies, Adverse [...] Abscess, skin ICD-682.9 Inactive Vishal Hui MD Pneumonia, organism unspecified ICD-486 Inactive Vishal Hui MD Medication List Medication Instructions Start Date Stop Date Generic Name ND Status Provider Patient Instruction CLINDAMYCIN HCL 150 MG CAPS 1 four times a day CLINDAMYCIN HCL 36324704843 No Longer Active Neeraj Collins MD Active KEFLEX 500 MG ORAL CAPS 1 cap QID by mouth CEPHALEXIN 29293128146 No Longer Active Neeraj Collins MD Active DIFLUCAN 150 MG TABS 1 pill every other day x 2 doses FLUCONAZOLE 50168076473 No Longer Active Sahara Rodriguez MD PhD Active MELATONIN 3 MG CAPS 2 po q hs MELATONIN 25736484498 No Longer Active Sahara Rodriguez MD PhD Active MULTIVITAMINS CAPS Take one by mouth daily MULTIPLE VITAMIN 89292968953 No Longer Active Sahara Rodriguez MD PhD Active BACTRIM DS 800-160 MG TAB 1 tab by mouth twice daily TRIMETHOPRIM-SULFAMETHOXAZOLE 34830341844 No Longer Active Sahara Rodriguez MD PhD Active [facility] PROBIOTIC ORAL CHEW 2 daily po PROBIOTIC PRODUCT 80128276349 No Longer Active Sahara Rodriguez MD PhD Active IBUPROFEN 600 MG TAB 1 po TID PRN IBUPROFEN 55134540383 Active 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 Martínez 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 Active BACTRIM DS 800-160 MG TABS 1 po BID x 7 days SULFAMETHOXAZOLE-TRIMETHOPRIM 64671666969 No Longer Active Vishal Hui MD Active CHANTIX STARTING MONTH EARNEST 0.5 MG X 11 & 1 MG X 42 TABS 0.5mg daily for 3 days , then 0.5mg BID for 4 days, then 1mg BID VARENICLINE TARTRATE 91744007475 No Longer Active TAMARA Gray Active METOPROLOL TARTRATE 50 MG TAB 1 po bid METOPROLOL TARTRATE 18102300606 Active Vishal Hui MD Active TRAZODONE HCL 100 MG TAB take 1 at bedtime TRAZODONE HCL 23263121173 Active Vishal Hui MD Active AMLODIPINE BESYLATE 5 MG TABS 1 tablet by mouth daily AMLODIPINE BESYLATE 53892567381 Active Vishal Hui MD Active VERAPAMIL HCL CR 120 MG TAB CR 1 po bid VERAPAMIL HCL 42863707808 No Longer Active Vishal Hui MD Active METOPROLOL SUCCINATE 50 MG TB24 1 tablet by mouth daily METOPROLOL SUCCINATE 60349333175 No Longer Active Vishal Hui MD Active TRAMADOL HCL 50 MG TABS 1-2 po TID PRN Pain TRAMADOL HCL 51129366733 Active Vishal Hui MD Active SAPHRIS 5 MG SUBL 1 po bid ASENAPINE MALEATE 62206477396 Active Vishal Hui MD Active SAPHRIS 10 MG SUBL 1 tab po bid ASENAPINE MALEATE 00964062134 No Longer Active Vishal Hui MD Active LISINOPRIL 20 MG TABS 1 tab po qd LISINOPRIL 81889371772 No Longer Active Vishal Hui MD Active BENADRYL 25 MG CAP 2 po tid prn anxiety DIPHENHYDRAMINE HCL 06767605440 Active Vishal Hui MD Active LATUDA 80 MG TABS Take one by mouth daily LURASIDONE HCL 01530031981 Active Vishal Hui MD Active LATUDA 20 MG TABS Take one by mouth daily LURASIDONE HCL 79944732971 No Longer Active Vishal Hui MD Active TRAZODONE HCL 50 MG TABS 1/2 tab po qd prn for anxiety TRAZODONE HCL 46713013223 No Longer Active Vishal Hui MD Active PIROXICAM 20 MG CAPS 1 cap po qd PRN Pain PIROXICAM 96940599056 Active Vishal Hui MD Active OMEPRAZOLE 20 MG TBEC 1 po q a.m. 30min prior to first food intake OMEPRAZOLE 68378741458 Active Vishal Hui MD Active RANITIDINE HCL 150 MG CAPS 1 twice a day RANITIDINE HCL 41051429447 Active Vishal Hui MD Active PROZAC 20 MG CAP Take one by mouth daily FLUOXETINE HCL 32406113210 Active Vishal Hui MD Active LINZESS 290 MCG CAPS Take one by mouth daily LINACLOTIDE 39414206021 Active Vishal Hui MD Active SAPHRIS 5 MG SUBL 1 tab po qd ASENAPINE MALEATE 95370103623 No Longer Active Vishal Hui MD Active ZALEPLON 10 MG CAPS 1 cap po every other night ZALEPLON 85520941906 No Longer Active Vishal Hui MD Active LYRICA 50 MG CAPS 1 tab po TID PREGABALIN 61099388878 No Longer Active Vishal Hui MD Active LORATADINE 10 MG TABS 1 tab po qd LORATADINE 55841278797 No Longer Active Vishal Hui MD Active VERAPAMIL HCL ER 180 MG CR-TABS 1 tab po bid VERAPAMIL HCL 40871978525 No Longer Active Vishal Hui MD Active MIRALAX POWD 1 capfull once daily POLYETHYLENE GLYCOL 3350 65769022781 No Longer Active Vishal Hui MD Active PREDNISONE 20 MG TABS 1 tab po qd PREDNISONE 19686687866 No Longer Active Renzo Thornton DO Active LEVOFLOXACIN 500 MG TABS 1 tab po qd LEVOFLOXACIN 89125713906 No Longer Active Renzo Thornton DO Active BUSPIRONE HCL 15 MG TABS 1 tab po TID BUSPIRONE HCL 15652162805 No Longer Active Renzo Thornton DO Active BENZTROPINE MESYLATE 1 MG TABS 1 tab po qd BENZTROPINE MESYLATE 10776629801 No Longer Active Renzo Thornton DO Active ATENOLOL 25 MG TABS 1 tab po qd ATENOLOL 24838723362 No Longer Active Renzo Thornton DO Active ESCITALOPRAM OXALATE 20 MG TABS 1 tab po qd ESCITALOPRAM OXALATE 51817558788 No Longer Active Renzo Thornton DO Active ADVAIR DISKUS 250-50 MCG/DOSE AEPB 1 puff BID FLUTICASONE-SALMETEROL 12825960879 No Longer Active Renzo Thornton DO Active PREDNISONE 20 MG TAB 2 tabs daily for 3 days, 1 tab daily for 3 days, 1/2 tab daily for 2 days PREDNISONE 54895806389 No Longer Active Vishal Hui MD Active CEFDINIR 300 MG CAPS by mouth twice a day CEFDINIR 08575906085 No Longer Active Vishal Hui MD Active LANSOPRAZOLE 30 MG CPDR 1 cap po qd LANSOPRAZOLE 56882025854 No Longer Active Vishal Hui MD Active TOPAMAX 25 MG TABS 1 tab po bid TOPIRAMATE 67334448329 Active Vishal Hui MD Active MINIPRESS 2 MG CAPS 1 cap po at night PRAZOSIN HCL 45938209910 Active Vishal Hui MD Active BACLOFEN 20 MG TABS 1 tab po tid BACLOFEN 64965638117 Active Vishal Hui MD Active ADVAIR DISKUS 250-50 MCG/DOSE AEPB 1 puff BID ADVAIR DISKUS 250-50 MCG/DOSE AEPB FLUTICASONE-SALMETEROL Inactive ESCITALOPRAM OXALATE 20 MG TABS 1 tab po qd ESCITALOPRAM OXALATE 20 MG TABS 319777 ESCITALOPRAM OXALATE Inactive ATENOLOL 25 MG TABS 1 tab po qd ATENOLOL 25 MG TABS 017635 ATENOLOL Inactive BENZTROPINE MESYLATE 1 MG TABS 1 tab po qd BENZTROPINE MESYLATE 1 MG TABS 160013 BENZTROPINE MESYLATE Inactive BUSPIRONE HCL 15 MG TABS 1 tab po TID BUSPIRONE HCL 15 MG TABS 346883 BUSPIRONE HCL Inactive LEVOFLOXACIN 500 MG TABS 1 tab po qd LEVOFLOXACIN 500 MG TABS 831753 LEVOFLOXACIN Inactive PREDNISONE 20 MG TABS 1 tab po qd PREDNISONE 20 MG TABS 119784 PREDNISONE Inactive MIRALAX POWD 1 capfull once daily MIRALAX POWD 526273 POLYETHYLENE GLYCOL 3350 Inactive VERAPAMIL HCL ER 180 MG CR-TABS 1 tab po bid VERAPAMIL HCL ER 180 MG CR-TABS VERAPAMIL HCL Inactive LORATADINE 10 MG TABS 1 tab po qd LORATADINE 10 MG TABS 699992 LORATADINE Inactive LYRICA 50 MG CAPS 1 tab po TID LYRICA 50 MG CAPS PREGABALIN Inactive ZALEPLON 10 MG CAPS 1 cap po every other night ZALEPLON 10 MG CAPS 417188 ZALEPLON Inactive SAPHRIS 5 MG SUBL 1 tab po qd SAPHRIS 5 MG SUBL ASENAPINE MALEATE Inactive TRAZODONE HCL 50 MG TABS 1/2 tab po qd prn for anxiety TRAZODONE HCL 50 MG TABS 664299 TRAZODONE HCL Inactive LATUDA 20 MG TABS Take one by mouth daily LATUDA 20 MG TABS LURASIDONE HCL Inactive LISINOPRIL 20 MG TABS 1 tab po qd LISINOPRIL 20 MG TABS 474989 LISINOPRIL Inactive SAPHRIS 10 MG SUBL 1 [...] po q hs MELATONIN 3 MG CAPS 689429 MELATONIN Inactive KEFLEX 500 MG ORAL CAPS 1 cap QID by mouth KEFLEX 500 MG ORAL CAPS 254850 CEPHALEXIN Inactive CLINDAMYCIN HCL 150 MG CAPS 1 four times a day CLINDAMYCIN HCL 150 MG CAPS 837896 CLINDAMYCIN HCL Inactive CEFDINIR 300 MG CAPS by mouth twice a day CEFDINIR 300 MG CAPS 724909 CEFDINIR Inactive PREDNISONE 20 MG TAB 2 tabs daily for 3 days, 1 tab daily for 3 days, 1/2 tab daily for 2 days PREDNISONE 20 MG TAB 413565 PREDNISONE Inactive BACTRIM DS 800-160 MG TABS 1 po BID x 7 days BACTRIM DS 800-160 MG TABS SULFAMETHOXAZOLE-TRIMETHOPRIM Inactive DIFLUCAN 150 MG TABS 1 pill every other day x 2 doses DIFLUCAN 150 MG TABS 782829 FLUCONAZOLE Inactive Vital Signs Date Name Value [...] ... - Chemistry sodium, serum 140 mmol/L 141-804 2260/05/28 potassium, serum 4.2 mmol/L 3.5-5.2 chloride, serum [...] Panel - Chemistry sodium, serum 141 mmol/L 895-804 5541 potassium, serum 4.3 mmol/L 3.5-5.2 chloride, serum [...] Panel - Chemistry sodium, serum 139 mmol/L 501-926 1869/12/31 potassium, serum 4.8 mmol/L 3.5-5.2 chloride, serum 106 mmol/L 98-107 carbon dioxide, venous blood 24.3 mmol/L 21.0-32.0 blood glucose 90 mg/dL 65-110 urea nitrogen, blood 16 mg/dL 7-18 creatinine, serum 1.00 mg/dL 0.60-1.30 alanine aminotransferase (SGPT), serum 41 U/L 12-78 aspartate aminotransferase (SGOT), serum 17 U/L 15-37 calcium, serum 8.6 mg/dL 8.5-10.1 bilirubin, serum, total 0.30 mg/dL 0.00-1.00 cholesterol, serum 108 mg/dL 300-053 8936/12/31 triglyceride, serum, fasting 120 mg/dL 30-200 HDL [...] semiquantitative 7.0 5.0-8.5 Lab Report: Varicella-Zoater Inga IgG,IgM/18203, HEP Be Antibody/556, RUB ... - Serology rubella antibody, serum, IgG 2.88 Encounters Code Encounter Date Provider Facility [id number] Level 4 Est. Patient 13:59:09 CDT Neeraj Collins MD [facility]-51185 Level 3 Est. Patient 15:19:43 CDT Renzo Thornton DO [facility] CPT-78129 Level 3 Est. Patient 18:10:26 CDT Sahara Rodriguez MD PhD [facility]-81099 Level 3 Est. Patient 14:49:50 CDT Vishal Hui MD [facility] CPT-38747 Level 4 Est. Patient 18:41:46 CDT Neeraj Collins MD [facility] CPT-40892 Level 4 Est. 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-26605 Level 3 Est. Patient 14:43:55 MOBILE EQUIPMENT MECHANIC Vishal Hui MD [facility]-79668 Level 3 Est. Patient 15:26:33 MOBILE EQUIPMENT MECHANIC Sahara Rodriguez MD PhD [facility] CPT-53925 Level 3 Est. Patient 10:32:14 MOBILE EQUIPMENT MECHANIC Vishal Hui MD [facility] CPT-47247 Level 3 Est. Patient 15:12:52 MOBILE EQUIPMENT MECHANIC Vishal Hui MD [facility] CPT-52862 Level 4 Est. Patient 09:19:27 CDT Vishal Hui MD [facility] CPT-08820 Level 3 Est. Patient 15:53:00 CDT Renzo Thornton [facility] CPT-22925 Level 3 Est. Patient 15:50:30 CDT Renzo Thornton [facility] CPT-37475 Level 3 Est. Patient 16:55:24 CDT Vishal Hui MD [facility] Procedures Code Procedure Name Date Entry Date Standard Description CPT-J3420 Vitamin B12 1000mcg (Cyanocobalamin) 08:27:05 CDT 08/20 CPT-52578 Abx/Therapy Injection 08:27:05 CDT CPT-24643 Recombivax HB Injection Suspension 5 MCG/0.5ML 10:00:41 CDT CPT-13760 Administration single or combination vaccine inc oral 10 :00:41 CDT CPT-19893 Sono transvag pelvis non OB uterus ovaries cervix 16:36: 57 CDT CPT-08452 LS spine comp w obliq 09:50:55 [employer]BILE EQUIPMENT MECHANIC CPT-30753 Abd compl w upright 09:50:55 MOBILE EQUIPMENT MECHANIC CPT-J1100 Decadron 4mg (Dexamethasone) 15:51:24 MOBILE EQUIPMENT MECHANIC CPT-J1030 Depo Medrol 40 mg (Methyl Prednisolone Acetate) 15:51: 24 MOBILE EQUIPMENT MECHANIC CPT-65422 Abx/Therapy Injection 15:51:24 MOBILE EQUIPMENT MECHANIC CPT-J1100 Decadron 4mg (Dexamethasone) 15:26:33 MOBILE EQUIPMENT MECHANIC CPT-J1030 Depo Medrol 40 mg (Methyl Prednisolone Acetate) 15:26: 33 MOBILE EQUIPMENT MECHANIC CPT-23510 Sono retroperitoneal complete kidneys and bladder 17:15: 30 CDT CPT-89848 Abd compl w upright 16:09:25 CDT CPT-J1100 Decadron 8mg (Dexamethasone) 17:07:57 CDT CPT-10417 Abx/Therapy Injection 17:07:57 CDT CPT-J1100 Decadron 8mg (Dexamethasone) 16:55:24 CDT CPT-17418 Chest 2V Frontal and Lat 16:32:44 CDT
--- OUTSIDE RECORDS SUMMARY | 2016-11-04 22:18 | XMS REPORT | Clinical Summary ---
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 Suzan Boo [...] MD Health screening ICD-V70.0 Inactive Suzan Boo [employer]ATH[employer]RAFTER Sinus tachycardia ICD-427.89 Inactive Suzan Boo [employer] Smoker/tobacco use disorder-smoking cessation discussed ICD-305.1 Inactive [...] Suzan Boo APRN Vaginal discharge ICD-623.5 Inactive Suazn Boo APRN DYSURIA ICD-788.1 Inactive Suzan Boo [...] TABS 1 by mouth for yeast FLUCONAZOLE 17094525813 Active Suzan Boo APRN Active BACTRIM DS 800-160 MG TABS 1 twice a day SULFAMETHOXAZOLE- TRIMETHOPRIM 12756119397 Active Suzan Boo APRN Active EQ NICOTINE 21 MG/24HR TRANS PT24 Apply daily to stop smoking NICOTINE 72841019265 No Longer Active Suzan Boo APRN Active PREDNISONE 10 MG TABS 2 daily for 5 days then 1 daily for 5 days PREDNISONE 69950123401 No Longer Active Suzan Boo APRN Active LEVAQUIN 500 MG TABS 1 daily for infection LEVOFLOXACIN 52657830622 No Longer Active Suzan Boo APRN Active TROPICAMIDE 0.5 % OPHTH SOLN 1 drop PRN eye spasms TROPICAMIDE 89973882542 No Longer Active Suzan Boo APRN Active PREDNISONE 20 MG TAB 1 tablet daily x 4 days PREDNISONE 16965399610 No Longer Active Suzan Boo APRN Active ACETAMINOPHEN-CODEINE 120-12 MG/5ML SOLN 5 ml by mouth every 4-6 hours if needed for cough ACETAMINOPHEN-CODEINE 65592417286 No Longer Active Suzan Boo APRN Active KEFLEX 500 MG CAP 1 po qid CEPHALEXIN 12209381137 No Longer Active Suzan Boo APRN Active FLOVENT HFA 110 MCG/ACT AERO 2 puffs inhaled b.i.d. FLUTICASONE PROPIONATE HFA 23521644581 Active Renzo Thornton DO Active RISPERDAL 4 MG ORAL TABS 1 tab at bedtime RISPERIDONE 98627731592 Active Samantha Stephan RMA Active TESSALON PERLES 100 MG CAPS 1 three times a day as needed for cough BENZONATATE 00020126732 Active Suzan Boo APRN Active ZOFRAN 4 MG TABS 1 po q6hr PRN Nausea ONDANSETRON HCL No Longer Active Suzan Boo APRN Active FLUTICASONE PROPIONATE 50 MCG/ACT SUSP 2 sprays each nostril daily before bed. FLUTICASONE PROPIONATE 97285691327 No Longer Active Suzan Boo APRN Active ASPIRIN 325 MG ORAL TABS 1 tab q.d ASPIRIN 56850548430 No Longer Active Suzan Boo APRN Active HALOPERIDOL 10 MG ORAL TABS 1 tab q.d HALOPERIDOL 44936548812 No Longer Active Suzan Boo APRN Active GUAIFENESIN-CODEINE 100-10 MG/5ML SYRP 5ml every 4 to 6 hours as needed for cough GUAIFENESIN-CODEINE 24839461190 No Longer Active Suzan Boo APRN Active ZITHROMAX Z-EARNEST 250 MG TABS 2 today and then 1 daily for 4 days AZITHROMYCIN 70044630389 No Longer Active Suzan Boo APRN Active CLONAZEPAM 1 MG ORAL TABS 1 twice a day and an additional 1 tablet every other day as needed for pseudoseizures or anxiety CLONAZEPAM 28521522603 Active Ahmet Carbajal MD Active HYDROCODONE-ACETAMINOPHEN 5-325 MG ORAL TABS 1 tab two times a day HYDROCODONE-ACETAMINOPHEN 43826058400 No Longer Active Ahmet Carbajal MD Active LAMICTAL 100 MG ORAL TABS 1 tab 2 times qd. LAMOTRIGINE 16491428474 Active Ahmet Carbajal MD Active PREDNISONE 20 MG TABS 2 daily for 5 days then 1 daily for 5 days PREDNISONE 50163119988 No Longer Active Ahmet Carbajal MD Active FLUTICASONE PROPIONATE 50 MCG/ACT SUSP 1 to 2 sprays each nostril daily for allergies FLUTICASONE PROPIONATE 29722781891 Active Tila Valenzuela Active BENADRYL 25 MG CAP 4 po at bedtime for insomnia DIPHENHYDRAMINE HCL 45443977828 No Longer Active Ahmet Carbajal MD Active ADVAIR DISKUS 250-50 MCG/DOSE INH AEPB 1 puff twice a day for asthma FLUTICASONE-SALMETEROL 12868577371 No Longer Active Ahmet Carbajal MD Active KLONOPIN 1 MG ORAL TABS 1 tab po TID CLONAZEPAM 82309903031 No Longer Active Ahmet Carbajal MD Active ABILIFY MAINTENA 400 MG IM SUSR 400mg injection every 26 days ARIPIPRAZOLE 16607841145 No Longer Active Ahmet Carbajal MD Active TRAMADOL HCL 50 MG TABS 1/2-1 tab TID PRN TRAMADOL HCL 63424285281 No Longer Active Ahmet Carbajal MD Active BACTRIM DS 800-160 MG TABS 1 twice a day SULFAMETHOXAZOLE- TRIMETHOPRIM 00289862164 No Longer Active Ahmet Carbajal MD Active PROAIR HFA 108 (90 BASE) MCG/ACT AERS 2 puffs four times a day as needed 2015 ALBUTEROL SULFATE 05302869525 Active Ahmet Carbajal MD Active MONISTAT 7 COMBO PACK WOODROW 100 & 2 MG-% (9GM) VAG KIT 1 applicatorful per vagina q pm x 7 MICONAZOLE NITRATE 87830735401 No Longer Active Ahmet Carbajal MD Active FLAGYL 500 MG TAB 1 tablet by mouth bid METRONIDAZOLE 31247344786 No Longer Active Ahmet Carbajal MD Active OXYCODONE HCL ER 10 MG ORAL T12A 1/2 tab by mouth every 4 hours prn OXYCODONE HCL 10896822743 No Longer Active Ahmet Carbajal MD Active METHYLPREDNISOLONE 4 MG ORAL TABS po daily METHYLPREDNISOLONE 04133680040 No Longer Active Ahmet Carbajal MD Active LEVOFLOXACIN 500 MG ORAL TABS po daily LEVOFLOXACIN 40567997291 No Longer Active Ahmet Carbajal MD Active VIIBRYD 10 MG ORAL TABS Take 1 tablet once a day VILAZODONE HCL 83591151309 No Longer Active Ahmet Carbajal MD Active TOPAMAX 50 MG ORAL TABS 1 tab twice daily TOPIRAMATE 59255348796 No Longer Active Ahmet Carbajal MD Active DICLOFENAC SODIUM 50 MG TBEC 1 tablet by mouth four times daily PRN Pain 2015 DICLOFENAC SODIUM 25900984418 No Longer Active Ahmet Carbajal MD Active ADZENYS XR-ODT 6.3 MG ORAL TBED 1 tab po daily for ADHD AMPHETAMINE 88548974914 No Longer Active Ahmet Carbajal MD Active CHANTIX 1 MG TABS 1 twice a day to help quit smoking VARENICLINE TARTRATE 74396415967 No Longer Active Dipika Burgos MD Active CHANTIX STARTING MONTH EARNEST 0.5 MG X 11 & 1 MG X 42 TABS take as directed 2015 VARENICLINE TARTRATE 39100944411 No Longer Active Dipika Burgos MD Active TESSALON PERLES 100 MG CAP 1 to 2 tablets by mouth 3 times daily as needed for cough BENZONATATE 75877821882 No Longer Active Luigi Martínez APRN Active IMITREX 50 MG ORAL TABS 0.5 po x 1 PRN Headache. May repeat dose x 1 in 2 hours if needed SUMATRIPTAN SUCCINATE 89241217480 Active Ahmet Carbajal MD Active HYDROCODONE-ACETAMINOPHEN 5-325 MG TABS 1 to 2 four times a day as needed for pain use until can be seen by specialist HYDROCODONE- ACETAMINOPHEN 57193723203 No Longer Active Vishal Hui MD Active PROAIR HFA 108 (90 BASE) MCG/ACT AERS 2 puffs four times a day as needed 2015 ALBUTEROL SULFATE 59622284619 No Longer Active Vishal Hui MD Active PREDNISONE 20 MG TABS 2 daily for 5 days then 1 daily for 5 days PREDNISONE 17989352594 No Longer Active Vishal Hui MD Active ZITHROMAX Z-EARNEST 250 MG TABS 2 today and then 1 daily for 4 days AZITHROMYCIN 46440227533 No Longer Active Vishal Hui MD Active DICLOFENAC POTASSIUM TABS Take 1 tablet twice a day (pt. is not sure of the dose.) DICLOFENAC POTASSIUM TABS 49177309998 No Longer Active Vishal Hui MD Active VERAPAMIL HCL ER 120 MG ORAL CR-TABS Take 1 tablet by mouth twice a day. VERAPAMIL HCL 91088489558 Active Vishal Hui MD Active FLAGYL 500 MG TAB 1 tablet by mouth bid METRONIDAZOLE 35570450108 No Longer Active Vishal Hui MD Active VALIUM 5 MG TAB Take 1-2 tablets daily DIAZEPAM 34121665024 No Longer Active Fabiola Johnson APRN Active METOPROLOL TARTRATE 25 MG ORAL TABS 1/2 tablet twice daily for heart rate and blood pressure METOPROLOL TARTRATE 06200255181 No Longer Active Fabiola Johnson APRN Active MIRALAX ORAL POWD 17GMS DAILY IN WATER POLYETHYLENE GLYCOL 3350 68062369239 Active Berthaelif Kirby TAMARA Active MIRALAX PACK 1 po qd PRN Constipation POLYETHYLENE GLYCOL 3350 14542687736 No Longer Active Ahmet Carbajal MD Active MINIPRESS 2 MG CAPS 4 cap po at night PRAZOSIN HCL 51487867020 No Longer Active Ahmet Carbajal MD Active PIROXICAM 20 MG CAPS 1 cap po qd PRN Pain PIROXICAM 65515233577 No Longer Active Ahmet Carbajal MD Active TRAMADOL HCL 50 MG TABS 1-2 po TID PRN Pain TRAMADOL HCL 17279274717 No Longer Active Ahmet Carbajal MD Active METOPROLOL TARTRATE 50 MG TAB 1 po bid METOPROLOL TARTRATE 71899707795 No Longer Active Ahmet Carbajal MD Active ABILIFY 15 MG ORAL TABS 1 tab daily ARIPIPRAZOLE 12512681784 No Longer Active Ahmet Carbajal MD Active PROZAC 20 MG ORAL CAPS 1 tab daily FLUOXETINE HCL 93967592493 No Longer Active Ahmet Carbajal MD Active AMBIEN 5 MG ORAL TABS 1 tab at bedtime ZOLPIDEM TARTRATE 77842916676 No Longer Active Ahmet Carbajal MD Active PREDNISONE 20 MG TAB 2 tabs daily for 4 days, 1 tab daily for 4 days, 1/2 tab daily for 4 days PREDNISONE 12709271708 No Longer Active Ahmet Carbajal MD Active KEFLEX 500 MG CAP 1 po TID x 10 days CEPHALEXIN 84317559037 No Longer Active Vishal Hui MD Active SAPHRIS 5 MG SUBL 1 po bid ASENAPINE MALEATE 01286686823 No Longer Active Luigi Martínez APRN Active LATUDA 80 MG TABS Take one by mouth daily LURASIDONE HCL 26123717244 No Longer Active Jillina Fralebron LEATHER CRAFTER Active AMLODIPINE BESYLATE 5 MG TABS 1 tablet by mouth daily AMLODIPINE BESYLATE 08272721213 No Longer Active Tatajanee Mauricio NORIEGA Active AMITRIPTYLINE HCL 100 MG TAB one at hs AMITRIPTYLINE HCL 08161151064 No Longer Active Vishal Hui MD Active TRAZODONE HCL 100 MG TAB take 1 at bedtime TRAZODONE HCL 77551683060 No Longer Active Vishal Hui MD Active VYVANSE 40 MG CAPS 1 daily, LISDEXAMFETAMINE DIMESYLATE 27228334108 No Longer Active Vishal Hui MD Active IBUPROFEN 600 MG TAB 1 po TID PRN IBUPROFEN 49536394734 No Longer Active Vihsal Hui MD Active PROZAC 20 MG CAP Take one by mouth daily FLUOXETINE HCL 17834123107 No Longer Active Vishal Hui MD Active BACTRIM DS 800-160 MG TABS 1 pill by mouth twice daily SULFAMETHOXAZOLE-TRIMETHOPRIM 59134714688 No Longer Active Sahara Rodriguez MD PhD Active DIFLUCAN 150 MG TAB 1 tablet by mouth daily FLUCONAZOLE 56178687229 No Longer Active Vishal Hui MD Active TIZANIDINE HCL 4 MG TABS 1 po q6hr PRN Muscle Spasm/Back Pain TIZANIDINE HCL 97127573906 Active Vishal Hui MD Active CLINDAMYCIN HCL 150 MG CAPS 1 four times a day CLINDAMYCIN HCL 49130924445 No Longer Active Neeraj Collins MD Active KEFLEX 500 MG ORAL CAPS 1 cap QID by mouth CEPHALEXIN 19841938838 No Longer Active Neeraj Collins MD Active DIFLUCAN 150 MG TABS 1 pill every other day x 2 doses FLUCONAZOLE 88656485229 No Longer Active Sahara Rodriguez MD PhD Active MELATONIN 3 MG CAPS 2 po q hs MELATONIN 40540389993 No Longer Active Sahara Rodriguez MD PhD Active MULTIVITAMINS CAPS Take one by mouth daily MULTIPLE VITAMIN 16037110812 No Longer Active Sahara Rodriguez MD PhD Active BACTRIM DS 800-160 MG TAB 1 tab by mouth twice daily TRIMETHOPRIM-SULFAMETHOXAZOLE 42604124014 No Longer Active Sahara Rodriguez MD PhD Active [facility] PROBIOTIC ORAL CHEW 2 daily po PROBIOTIC PRODUCT 93850188034 No Longer Active Sahara Rodriguez MD PhD Active BACTRIM DS 800-160 MG TABS 1 po BID x 7 days SULFAMETHOXAZOLE-TRIMETHOPRIM 94290535449 No Longer Active Vishal Hui MD Active CHANTIX STARTING MONTH EARNEST 0.5 MG X 11 & 1 MG X 42 TABS 0.5mg daily for 3 days , then 0.5mg BID for 4 days, then 1mg BID VARENICLINE TARTRATE 41282094023 No Longer Active TAMARA Gray Active VERAPAMIL HCL CR 120 MG TAB CR 1 po bid VERAPAMIL HCL 06107403664 No Longer Active Vishal Hui MD Active METOPROLOL SUCCINATE 50 MG TB24 1 tablet by mouth daily METOPROLOL SUCCINATE 06862984418 No Longer Active Vishal Hui MD Active SAPHRIS 10 MG SUBL 1 tab po bid ASENAPINE MALEATE 57230512256 No Longer Active Vishal Hui MD Active LISINOPRIL 20 MG TABS 1 tab po qd LISINOPRIL 45221642020 No Longer Active Vishal Hui MD Active LATUDA 20 MG TABS Take one by mouth daily LURASIDONE HCL 02644118490 No Longer Active Vishal Hui MD Active TRAZODONE HCL 50 MG TABS 1/2 tab po qd prn for anxiety TRAZODONE HCL 82650663912 No Longer Active Vishal Hui MD Active OMEPRAZOLE 20 MG TBEC 1 po q a.m. 30min prior to first food intake OMEPRAZOLE 38320122319 Active TAMARA Casey Active RANITIDINE HCL 150 MG CAPS 1 twice a day RANITIDINE HCL 84051597284 Active Pacooral Messilebron NORIEGA Active LINZESS 290 MCG CAPS Take one by mouth daily LINACLOTIDE 77960782772 No Longer Active Vishal Hui MD Active SAPHRIS 5 MG SUBL 1 tab po qd ASENAPINE MALEATE 66279596826 No Longer Active Vishal Hui MD Active ZALEPLON 10 MG CAPS 1 cap po every other night ZALEPLON 44668918381 No Longer Active Vishal Hui MD Active LYRICA 50 MG CAPS 1 tab po TID PREGABALIN 23771836905 No Longer Active Vishal Hui MD Active LORATADINE 10 MG TABS 1 tab po qd LORATADINE 12391660184 No Longer Active Vishal Hui MD Active VERAPAMIL HCL ER 180 MG CR-TABS 1 tab po bid VERAPAMIL HCL 01989911860 No Longer Active Vishal Hui MD Active MIRALAX POWD 1 capfull once daily POLYETHYLENE GLYCOL 3350 13423574226 No Longer Active Vishal Hui MD Active PREDNISONE 20 MG TABS 1 tab po qd PREDNISONE 05922647103 No Longer Active Renzo Thornton DO Active LEVOFLOXACIN 500 MG TABS 1 tab po qd LEVOFLOXACIN 18929334349 No Longer Active Renzo Thornton DO Active BUSPIRONE HCL 15 MG TABS 1 tab po TID BUSPIRONE HCL 68243544170 No Longer Active Renzo Thornton DO Active BENZTROPINE MESYLATE 1 MG TABS 1 tab po qd BENZTROPINE MESYLATE 21266441115 No Longer Active Renzo Thornton DO Active ATENOLOL 25 MG TABS 1 tab po qd ATENOLOL 69386297500 No Longer Active Renzo Thornton DO Active ESCITALOPRAM OXALATE 20 MG TABS 1 tab po qd ESCITALOPRAM OXALATE 60085247366 No Longer Active Renzo Thornton DO Active ADVAIR DISKUS 250-50 MCG/DOSE AEPB 1 puff BID FLUTICASONE-SALMETEROL 14621847500 No Longer Active Renzo Thornton DO Active PREDNISONE 20 MG TAB 2 tabs daily for 3 days, 1 tab daily for 3 days, 1/2 tab daily for 2 days PREDNISONE 50109831443 No Longer Active Vishal Hui MD Active CEFDINIR 300 MG CAPS by mouth twice a day CEFDINIR 91847960399 No Longer Active Vishal Hui MD Active LANSOPRAZOLE 30 MG CPDR 1 cap po qd LANSOPRAZOLE 25160958053 No Longer Active Vishal Hui MD Active BACLOFEN 20 MG TABS 1 tab po tid BACLOFEN 03054272477 No Longer Active Vishal Hui MD Active ADVAIR DISKUS 250-50 MCG/DOSE AEPB 1 puff BID ADVAIR DISKUS 250-50 MCG/DOSE AEPB FLUTICASONE-SALMETEROL Inactive ESCITALOPRAM OXALATE 20 MG TABS 1 tab po qd ESCITALOPRAM OXALATE 20 MG TABS 078838 ESCITALOPRAM OXALATE Inactive ATENOLOL 25 MG TABS 1 tab po qd ATENOLOL 25 MG TABS 379221 ATENOLOL Inactive BENZTROPINE MESYLATE 1 MG TABS 1 tab po qd BENZTROPINE MESYLATE 1 MG TABS 776006 BENZTROPINE MESYLATE Inactive BUSPIRONE HCL 15 MG TABS 1 tab po TID BUSPIRONE HCL 15 MG TABS 318360 BUSPIRONE HCL Inactive LEVOFLOXACIN 500 MG TABS 1 tab po qd LEVOFLOXACIN 500 MG TABS 458732 LEVOFLOXACIN Inactive PREDNISONE 20 MG TABS 1 tab po qd PREDNISONE 20 MG TABS 759342 PREDNISONE Inactive MIRALAX POWD 1 capfull once daily MIRALAX POWD 026820 POLYETHYLENE GLYCOL 3350 Inactive VERAPAMIL HCL ER 180 MG CR-TABS 1 tab po bid VERAPAMIL HCL ER 180 MG CR-TABS VERAPAMIL HCL Inactive LORATADINE 10 MG TABS 1 tab po qd LORATADINE 10 MG TABS 490036 LORATADINE Inactive LYRICA 50 MG CAPS 1 tab po TID LYRICA 50 MG CAPS PREGABALIN Inactive ZALEPLON 10 MG CAPS 1 cap po every other night ZALEPLON 10 MG CAPS 012428 ZALEPLON Inactive SAPHRIS 5 MG SUBL 1 tab po qd SAPHRIS 5 MG SUBL ASENAPINE MALEATE Inactive TRAZODONE HCL 50 MG TABS 1/2 tab po qd prn for anxiety TRAZODONE HCL 50 MG TABS 423362 TRAZODONE HCL Inactive LATUDA 20 MG TABS Take one by mouth daily LATUDA 20 MG TABS LURASIDONE HCL Inactive LISINOPRIL 20 MG TABS 1 tab po qd LISINOPRIL 20 MG TABS 547829 LISINOPRIL Inactive SAPHRIS 10 MG SUBL 1 [...] twice daily BACTRIM DS 800-160 MG TAB 151793 TRIMETHOPRIM-SULFAMETHOXAZOLE Inactive MULTIVITAMINS CAPS Take one by mouth daily MULTIVITAMINS CAPS MULTIPLE VITAMIN Inactive MELATONIN 3 MG CAPS 2 po q hs MELATONIN 3 MG CAPS 916450 MELATONIN Inactive KEFLEX 500 MG ORAL CAPS 1 cap QID by mouth KEFLEX 500 MG ORAL CAPS 315432 CEPHALEXIN Inactive CLINDAMYCIN HCL 150 MG CAPS 1 four times a day CLINDAMYCIN HCL 150 MG CAPS 791152 CLINDAMYCIN HCL Inactive DIFLUCAN 150 MG TAB 1 tablet by mouth daily DIFLUCAN 150 MG TAB 231155 FLUCONAZOLE Inactive PROZAC 20 MG CAP Take one by mouth daily PROZAC 20 MG CAP 065559 FLUOXETINE HCL Inactive IBUPROFEN 600 MG TAB 1 po TID PRN IBUPROFEN 600 MG TAB 959888 IBUPROFEN Inactive VYVANSE 40 MG CAPS 1 daily, VYVANSE 40 MG CAPS LISDEXAMFETAMINE DIMESYLATE Inactive TRAZODONE HCL 100 MG TAB take 1 at bedtime TRAZODONE HCL 100 MG TAB 156216 TRAZODONE HCL Inactive AMITRIPTYLINE HCL 100 MG TAB one at hs AMITRIPTYLINE HCL 100 MG TAB 434500 AMITRIPTYLINE HCL Inactive AMLODIPINE BESYLATE 5 MG TABS 1 tablet by mouth daily AMLODIPINE BESYLATE 5 MG TABS 531371 AMLODIPINE BESYLATE Inactive LATUDA 80 MG TABS Take one by mouth daily LATUDA 80 MG TABS LURASIDONE HCL Inactive SAPHRIS 5 MG SUBL 1 po bid SAPHRIS 5 MG SUBL ASENAPINE MALEATE Inactive PREDNISONE 20 MG TAB 2 tabs daily for 4 days, 1 tab daily for 4 days, 1/2 tab daily for 4 days PREDNISONE 20 MG TAB 403922 PREDNISONE Inactive AMBIEN 5 MG ORAL TABS 1 tab at bedtime AMBIEN 5 MG ORAL TABS 091689 ZOLPIDEM TARTRATE Inactive PROZAC 20 MG ORAL CAPS 1 tab daily PROZAC 20 MG ORAL CAPS 141500 FLUOXETINE HCL Inactive ABILIFY 15 MG ORAL TABS 1 tab daily ABILIFY 15 MG ORAL TABS 899359 ARIPIPRAZOLE Inactive METOPROLOL TARTRATE 50 MG TAB 1 po bid METOPROLOL TARTRATE 50 MG TAB 335541 METOPROLOL TARTRATE Inactive TRAMADOL HCL 50 MG TABS 1-2 po TID PRN Pain TRAMADOL HCL 50 MG TABS 446850 TRAMADOL HCL Inactive PIROXICAM 20 MG CAPS 1 cap po qd PRN Pain PIROXICAM 20 MG CAPS 701958 PIROXICAM Inactive MINIPRESS 2 MG CAPS 4 cap po at night MINIPRESS 2 MG CAPS 861933 PRAZOSIN HCL Inactive MIRALAX PACK 1 po qd PRN Constipation MIRALAX PACK 843014 POLYETHYLENE GLYCOL 3350 Inactive METOPROLOL TARTRATE 25 MG ORAL TABS 1/2 tablet twice daily for heart rate and blood pressure METOPROLOL TARTRATE 25 MG ORAL TABS 684920 METOPROLOL TARTRATE Inactive VALIUM 5 MG TAB Take 1-2 tablets daily VALIUM 5 MG TAB 467907 DIAZEPAM Inactive FLAGYL 500 MG TAB 1 tablet by mouth bid FLAGYL 500 MG TAB 007339 METRONIDAZOLE Inactive DICLOFENAC POTASSIUM TABS Take 1 tablet twice a day (pt. is not sure of the dose.) DICLOFENAC POTASSIUM TABS DICLOFENAC POTASSIUM TABS Inactive ZITHROMAX Z-EARNEST 250 MG TABS 2 today and then 1 daily for 4 days ZITHROMAX Z-EARNEST 250 MG TABS 5159865 AZITHROMYCIN Inactive PREDNISONE 20 MG TABS 2 daily for 5 days then 1 daily for 5 days PREDNISONE 20 MG TABS 202932 PREDNISONE Inactive PROAIR HFA 108 (90 BASE) MCG/ACT AERS 2 puffs four times a day as needed 2015 PROAIR HFA 108 (90 BASE) MCG/ACT AERS ALBUTEROL SULFATE Inactive HYDROCODONE-ACETAMINOPHEN 5-325 MG TABS 1 to 2 four times a day as needed for pain use until can be seen by specialist HYDROCODONE- ACETAMINOPHEN 5-325 MG TABS 674611 HYDROCODONE-ACETAMINOPHEN Inactive TESSALON PERLES 100 MG CAP 1 to 2 tablets by mouth 3 times daily as needed for cough TESSALON PERLES 100 MG CAP 264338 BENZONATATE Inactive CHANTIX STARTING MONTH EARNEST 0.5 [...] Pain 2015 DICLOFENAC SODIUM 50 MG TBEC 301810 DICLOFENAC SODIUM Inactive TOPAMAX 50 MG ORAL TABS 1 tab twice daily TOPAMAX 50 MG ORAL TABS 707999 TOPIRAMATE Inactive VIIBRYD 10 MG ORAL TABS Take 1 tablet once a day VIIBRYD 10 MG ORAL TABS VILAZODONE HCL Inactive LEVOFLOXACIN 500 MG ORAL TABS po daily LEVOFLOXACIN 500 MG ORAL TABS 774509 LEVOFLOXACIN Inactive METHYLPREDNISOLONE 4 MG ORAL TABS po daily METHYLPREDNISOLONE 4 MG ORAL TABS 622897 METHYLPREDNISOLONE Inactive OXYCODONE HCL ER 10 MG ORAL T12A 1/2 tab by mouth every 4 hours prn OXYCODONE HCL ER 10 MG ORAL T12A OXYCODONE HCL Inactive FLAGYL 500 MG TAB 1 tablet by mouth bid FLAGYL 500 MG TAB 421710 METRONIDAZOLE Inactive MONISTAT 7 COMBO PACK WOODROW 100 & 2 MG-% (9GM) VAG KIT 1 applicatorful per vagina q pm x 7 MONISTAT 7 COMBO PACK WOODROW 100 & 2 MG-% (9GM) VAG KIT MICONAZOLE NITRATE Inactive BACTRIM DS 800-160 MG TABS 1 twice a day BACTRIM DS 800-160 MG TABS 975315 SULFAMETHOXAZOLE-TRIMETHOPRIM Inactive TRAMADOL HCL 50 MG TABS 1/2-1 tab TID PRN TRAMADOL HCL 50 MG TABS 898905 TRAMADOL HCL Inactive ABILIFY MAINTENA 400 MG IM SUSR 400mg injection every 26 days ABILIFY MAINTENA 400 MG IM SUSR ARIPIPRAZOLE Inactive KLONOPIN 1 MG ORAL TABS 1 tab po TID KLONOPIN 1 MG ORAL TABS 458948 CLONAZEPAM Inactive ADVAIR DISKUS 250-50 MCG/DOSE INH AEPB 1 puff twice a day for asthma ADVAIR DISKUS 250-50 MCG/DOSE INH AEPB FLUTICASONE- SALMETEROL Inactive BENADRYL 25 MG CAP 4 po at bedtime for insomnia BENADRYL 25 MG CAP DIPHENHYDRAMINE HCL Inactive PREDNISONE 20 MG TABS 2 daily for 5 days then 1 daily for 5 days PREDNISONE 20 MG TABS 785505 PREDNISONE Inactive HYDROCODONE-ACETAMINOPHEN 5-325 MG ORAL TABS 1 tab two times a day HYDROCODONE-ACETAMINOPHEN 5-325 MG ORAL TABS 716716 HYDROCODONE-ACETAMINOPHEN Inactive ZITHROMAX Z-EARNEST 250 MG TABS 2 today and then 1 daily for 4 days ZITHROMAX Z-EARNEST 250 MG TABS 2963706 AZITHROMYCIN Inactive GUAIFENESIN-CODEINE 100-10 MG/5ML SYRP 5ml every 4 to 6 hours as needed for cough GUAIFENESIN-CODEINE 100-10 MG/5ML SYRP 012286 GUAIFENESIN-CODEINE Inactive HALOPERIDOL 10 MG ORAL TABS 1 tab q.d HALOPERIDOL 10 MG ORAL TABS 554013 HALOPERIDOL Inactive ASPIRIN 325 MG ORAL TABS 1 tab q.d ASPIRIN 325 MG ORAL TABS 718874 ASPIRIN Inactive FLUTICASONE PROPIONATE 50 MCG/ACT SUSP 2 sprays each nostril daily before bed. FLUTICASONE PROPIONATE 50 MCG/ACT SUSP 7926299 FLUTICASONE PROPIONATE Inactive ZOFRAN 4 MG TABS 1 po q6hr PRN Nausea ZOFRAN 4 MG TABS 344717 ONDANSETRON HCL Inactive KEFLEX 500 MG CAP 1 po qid KEFLEX 500 MG CAP 823109 CEPHALEXIN Inactive ACETAMINOPHEN-CODEINE 120-12 MG/5ML SOLN 5 ml by mouth every 4-6 hours if needed for cough ACETAMINOPHEN-CODEINE 120-12 MG/5ML SOLN 558610 ACETAMINOPHEN-CODEINE Inactive PREDNISONE 20 MG TAB 1 tablet daily x 4 days PREDNISONE 20 MG TAB 050473 PREDNISONE Inactive TROPICAMIDE 0.5 % OPHTH SOLN 1 drop PRN eye spasms TROPICAMIDE 0.5 % OPHTH SOLN 148215 TROPICAMIDE Inactive LEVAQUIN 500 MG TABS 1 daily for infection LEVAQUIN 500 MG TABS 100492 LEVOFLOXACIN Inactive PREDNISONE 10 MG TABS 2 daily for 5 days then 1 daily for 5 days PREDNISONE 10 MG TABS 946736 PREDNISONE Inactive EQ NICOTINE 21 MG/24HR TRANS PT24 Apply daily to stop smoking EQ NICOTINE 21 MG/24HR TRANS PT24 NICOTINE Inactive CEFDINIR 300 MG CAPS by mouth twice a day CEFDINIR 300 MG CAPS 442736 CEFDINIR Inactive PREDNISONE 20 MG TAB 2 tabs daily for 3 days, 1 tab daily for 3 days, 1/2 tab daily for 2 days PREDNISONE 20 MG TAB 902339 PREDNISONE Inactive BACTRIM DS 800-160 MG TABS 1 po BID x 7 days BACTRIM DS 800-160 MG TABS 19820521 SULFAMETHOXAZOLE-TRIMETHOPRIM Inactive DIFLUCAN 150 MG TABS 1 pill every other day x 2 doses DIFLUCAN 150 MG TABS 805563 FLUCONAZOLE Inactive BACTRIM DS 800-160 MG TABS 1 pill by mouth twice daily BACTRIM DS 800-160 MG TABS 19820521 SULFAMETHOXAZOLE-TRIMETHOPRIM Inactive KEFLEX 500 MG CAP 1 po TID x 10 days KEFLEX 500 MG CAP 976974 CEPHALEXIN Inactive Advance Directives Directive Description Start [...] % 11.0-15.0 platelet count 443 THOUSAND/UL 10*3/mm3 113-101 5493/03/01 mean platelet volume 8.2 fL 7.5-12.5 Lab [...] 369 10^3/MM^3 10*3/mm3 142-424 Lab Report: Chlamydia/GC APTIMA/[id number] - Lab chlamydia DNA probe NOT DETECTED NOT DETECTED Lab Report: Chlamydia/GC APTIMA/[id number] - Microbiology Neisseria gonorrhoeae DNA probe NOT DETECTED NOT DETECTED Lab Report: Chlamydia/GC [id number]/[id number], Urinalysis, Complete, with Reflex ... - Lab chlamydia DNA probe NOT DETECTED NOT DETECTED Lab Report: Chlamydia/GC [id number]/[id number], Urinalysis, Complete, with Reflex ... - Microbiology Neisseria gonorrhoeae DNA probe NOT DETECTED NOT DETECTED Lab Report: Chlamydia/GC APTIMA/[id number], Urinalysis, Complete, with Reflex ... - Urinalysis microalbumin/total urine volume 2 mg/L Units converted. See lab report for original value. microalbumin/creatinine ratio, urine 9 MCG/MG CREAT mg/L <30 Lab Report: Comp. Metabolic Panel - Chemistry sodium, serum 142 mmol/L 017-544 9459/06/08 carbon dioxide, venous blood 27.6 mmol/L 21.0-32.0 potassium, serum 4.0 mmol/L 3.5-5.2 chloride, serum 105 mmol/L 98-107 blood glucose 95 mg/dL 65-110 urea nitrogen, blood 8 mg/dL 7-18 creatinine, serum 0.75 mg/dL 0.55-1.30 alanine aminotransferase (SGPT), serum 49 U/L 12-78 aspartate aminotransferase (SGOT), serum 28 U/L 15-37 calcium, serum 9.4 mg/dL 8.5-10.1 bilirubin, serum, total 0.30 mg/dL 0.00-1.00 sodium, serum 140 mmol/L [id number] 4628/08/08 carbon dioxide, venous blood 33.7 mmol/L 21.0-32.0 [...] mg/dL Encounters Code Encounter Date Provider Facility CPT-59849 Level 3 Est. Patient 10:29:30 CDT [facility] CPT-39124 Level 3 Est. Patient 11:04:38 CDT Renzo Thornton [facility] CPT-14802 Level 3 Est. Patient 11:15:58 TANNING WHEEL OPERATOR Renzo Thornton [facility] CPT-30095 Level 3 Est. Patient 15:28:23 TANNING WHEEL OPERATOR [facility] CPT-60212 Level 4 Est. Patient 10:20:54 TANNING WHEEL OPERATOR [facility] CPT-24658 Level 3 Est. Patient 11:47:37 TANNING WHEEL OPERATOR Ahmet Carbajal MD [facility] CPT-26604 Level 3 Est. Patient 10:40:11 TANNING WHEEL OPERATOR Ahmet Carbajal MD [facility] CPT-52608 Level 3 Est. Patient 15:07:06 TANNING WHEEL OPERATOR Neeraj Collins MD [facility] CPT-51833 Level 4 Est. Patient 14:45:00 TANNING WHEEL OPERATOR Ahmet Carbajal MD [facility] CPT-43908 Level 3 Est. Patient 13:59:59 CDT [facility] CPT-86452 Level 3 Est. Patient 18:18:53 CDT Neeraj Collins MD [facility] CPT-66579 Level 3 Est. Patient 15:50:44 CDT Vishal Hui MD [facility] CPT-89358 Level 3 Est. Patient 11:36:17 CDT Ahmet Carbajal MD [facility] CPT-06411 Level 3 Est. Patient 13:29:16 CDT Vishal Hui MD [facility] CPT-57162 Level 3 Est. Patient 14:27:52 CDT Neeraj Collins MD [facility] CPT-51156 Level 3 Est. Patient 08:56:03 CDT [facility] CPT-90592 Level 4 Est. Patient 12:11:48 CDT [facility] CPT-37776 Level 3 New Patient 16:53:37 CDT Albert Caldera MD [facility] CPT-80032 Level 3 Est. Patient 11:25:49 CDT Renzo Thornton DO [facility] CPT-17764 Level 3 Est. Patient 15:22:01 CDT Ahmet Carbajal MD [facility] CPT-99433 Level 4 Est. Patient 09:00:51 TANNING WHEEL OPERATOR Vishal Hui MD [facility] CPT-59421 Level 3 Est. Patient 11:37:33 TANNING WHEEL OPERATOR Vishal Hui MD [facility] CPT-08432 Level 3 Est. Patient 08:41:09 TANNING WHEEL OPERATOR Vishal Hui MD [facility] CPT-04330 Level 4 Est. Patient 10:19:35 TANNING WHEEL OPERATOR Vishal Hui MD [facility] CPT-79688 Level 3 Est. Patient 13:35:45 CDT Vishal Hui MD [facility] CPT-65467 Level 4 Est. Patient 10:08:37 CDT Vishal Hui MD [facility] CPT-15698 Level 3 Est. Patient 11:22:10 CDT Vishal Hui MD [facility] CPT-37615 Level 3 Est. Patient 11:03:32 CDT Sahara Rodriguez MD, PhD [facility] CPT-73129 Level 3 Est. Patient 09:41:35 CDT Vishal Hui MD [facility] CPT-01912 Level 3 Est. Patient 12:00:41 CDT Neeraj Collins MD [facility] CPT-30755 Level 3 Est. Patient 09:16:24 CDT Vishal Hui MD [facility] CPT-67731 Level 4 Est. Patient 13:59:09 CDT Neeraj Collins MD [facility]-11943 Level 3 Est. Patient 15:19:43 CDT Renzo Thornton DO [facility] CPT-55367 Level 3 Est. Patient 18:10:26 CDT Sahara Rodriguez MD [facility]-04719 Level 3 Est. Patient 14:49:50 CDT Vishal Hui MD [facility]-76957 Level 4 Est. Patient 18:41:46 CDT Neeraj Collins MD [facility]-24178 Level 4 Est. Patient 09:18:38 TANNING WHEEL OPERATOR Vishal Hui MD [facility] CPT-76362 Level 3 Est. Patient 14:43:55 TANNING WHEEL OPERATOR Vishal Hui MD [facility] CPT-18596 Level 3 Est. Patient 15:26:33 TANNING WHEEL OPERATOR Sahara Rodriguez MD PhD [facility]-65116 Level 3 Est. Patient 10:32:14 TANNING WHEEL OPERATOR Vishal Hui MD [facility] CPT-79472 Level 3 Est. Patient 15:12:52 TANNING WHEEL OPERATOR Vishal Hui MD [facility] CPT-02738 Level 4 Est. Patient 09:19:27 CDT Vishal Hui MD [facility]-77251 Level 3 Est. Patient 15:53:00 CDT Renzo Thornton [facility]-32804 Level 3 Est. Patient 15:50:30 CDT Renzo Thornton DO [facility] CPT-24849 Level 3 Est. Patient 16:55:24 CDT Vishal Hui MD [facility] Procedures Code Procedure Name Date Entry Date Standard Description CPT-44618 Smoking Cessation counseling 11:15:58 TANNING WHEEL OPERATOR CPT-G0439 Subsequent Annual Wellness Exam 09:30:58 TANNING WHEEL OPERATOR CPT-21847 TSH - LAB USE ONLY 08:50:26 TANNING WHEEL OPERATOR CPT-48444 CBC - LAB USE ONLY 08:50:26 TANNING WHEEL OPERATOR CPT-24699 Venipuncture Draw Fee 08:50:26 TANNING WHEEL OPERATOR CPT-63725 Abx/Therapy Injection 17:34:30 TANNING WHEEL OPERATOR CPT-86503 Nexplanon Removal with Reinsertion 14:09:32 CDT CPT-J7307 Nexplanon (Implant) 14:09:32 CDT CPT-OV Office Visit 14:09:32 CDT CPT-35359 UA w micro - LAB USE ONLY 16:21:13 CDT CPT-58749 [place] - LAB USE ONLY 16:21:13 CDT CPT-48707 First Vx - Ix admin for Medicare patients 14:37:47 CDT CPT-74076 Fluzone Preservative Free Intramuscular Suspension 14:37 :47 CDT CPT-08364 Abx/Therapy Injection 13:54:22 CDT CPT-27130 Abx/Therapy Injection 08:47:09 CDT CPT-36285 Abx/Therapy Injection 13:29:56 CDT CPT-75749 Abx/Therapy Injection 08:36:16 CDT CPT-00843 [place] - LAB USE ONLY 17:44:58 CDT CPT-86073 UA w micro - LAB USE ONLY 17:44:58 CDT CPT-75041 CMP - LAB USE ONLY 17:44:58 CDT CPT-35061 Venipuncture Draw Fee 17:44:58 CDT CPT-21274 Cervical Min 4V - XRAY USE ONLY 09:01:40 CDT CPT-22990 Chest 2V Frontal and Lat - XRAY USE ONLY 11:06:31 CDT CPT-27115 EKG Trac and Interp - XRAY USE ONLY 11:31:43 CDT 08/26 CPT-J3420 Vitamin B12 1000mcg (Cyanocobalamin) 08:10:26 TANNING WHEEL OPERATOR 04/12 CPT-14072 Abx/Therapy Injection 08:10:26 TANNING WHEEL OPERATOR CPT-G0438 Initial Annual Wellness Exam 19:01:01 TANNING WHEEL OPERATOR CPT-J3420 Vitamin B12 1000mcg (Cyanocobalamin) 16:57:46 CDT 08/14 CPT-35195 Recombivax HB Injection Suspension 5 MCG/0.5ML 08:37:50 TANNING WHEEL OPERATOR CPT-62168 Immunization Single Admin 08:37:50 TANNING WHEEL OPERATOR CPT-J3420 Vitamin B12 1000mcg (Cyanocobalamin) 08:32:16 TANNING WHEEL OPERATOR 03/11 CPT-29801 Abx/Therapy Injection 08:32:16 TANNING WHEEL OPERATOR CPT-03404 Chest 2V Frontal and Lat 11:46:38 TANNING WHEEL OPERATOR CPT-11658 Venipuncture Draw Fee 09:12:45 TANNING WHEEL OPERATOR CPT-J3420 Vitamin B12 1000mcg (Cyanocobalamin) 08:50:15 TANNING WHEEL OPERATOR 02/08 CPT-20926 Abx/Therapy Injection 08:50:15 TANNING WHEEL OPERATOR CPT-Cryo Cryotherapy 10:19:35 TANNING WHEEL OPERATOR CPT-000 Give Appropriate Flu Vaccine 09:22:16 CDT CPT-J3420 Vitamin B12 1000mcg (Cyanocobalamin) 19:08:57 CDT 01/11 CPT-74256 Abx/Therapy Injection 19:08:57 CDT CPT-J3420 Vitamin B12 1000mcg (Cyanocobalamin) 08:19:08 CDT 12/11 CPT-46645 Abx/Therapy Injection 08:19:08 CDT CPT-J3420 Vitamin B12 1000mcg (Cyanocobalamin) 14:48:00 CDT 11/09 CPT-65826 Abx/Therapy Injection 14:47:59 CDT CPT-J3420 Vitamin B12 1000mcg (Cyanocobalamin) 08:34:04 CDT 10/09 CPT-21519 Abx/Therapy Injection 08:34:04 CDT CPT-J3420 Vitamin B12 1000mcg (Cyanocobalamin) 09:18:52 CDT 09/11 CPT-41515 Abx/Therapy Injection 09:18:52 CDT CPT-J3420 Vitamin B12 1000mcg (Cyanocobalamin) 08:35:44 CDT 09/04 CPT-16917 Abx/Therapy Injection 08:35:44 CDT CPT-75213 Immunization Single Admin 11:07:16 CDT CPT-67689 Hepatitis B adult IM 11:07:16 CDT CPT-J3420 Vitamin B12 1000mcg (Cyanocobalamin) 11:00:49 CDT 08/28 CPT-J1040 Depo Medrol 80 mg (Methyl Prednisolone Acetate) 11:00: 49 CDT CPT-44817 Abx/Therapy Injection 11:00:49 CDT CPT-J1040 Depo Medrol 80 mg (Methyl Prednisolone Acetate) 09:16: 23 CDT CPT-J3420 Vitamin B12 1000mcg (Cyanocobalamin) 08:27:05 CDT 08/20 CPT-31542 Abx/Therapy Injection 08:27:05 CDT CPT-18481 Recombivax HB Injection Suspension 5 MCG/0.5ML 10:00:41 CDT CPT-88237 Administration single or combination vaccine inc oral 10 :00:41 CDT CPT-08933 Sono transvag pelvis non OB uterus ovaries cervix 16:36: 57 CDT CPT-65690 LS spine comp w obliq 09:50:55 TANNING WHEEL OPERATOR CPT-70792 Abd compl w upright 09:50:55 TANNING WHEEL OPERATOR CPT-J1100 Decadron 4mg (Dexamethasone) 15:51:24 TANNING WHEEL OPERATOR CPT-J1030 Depo Medrol 40 mg (Methyl Prednisolone Acetate) 15:51: 24 TANNING WHEEL OPERATOR CPT-70518 Abx/Therapy Injection 15:51:24 TANNING WHEEL OPERATOR CPT-J1100 Decadron 4mg (Dexamethasone) 15:26:33 TANNING WHEEL OPERATOR CPT-J1030 Depo Medrol 40 mg (Methyl Prednisolone Acetate) 15:26: 33 TANNING WHEEL OPERATOR CPT-90823 Sono retroperitoneal complete kidneys and bladder 17:15: 30 CDT CPT-06693 Abd compl w upright 16:09:25 CDT CPT-J1100 Decadron 8mg (Dexamethasone) 17:07:57 CDT CPT-55491 Abx/Therapy Injection 17:07:57 CDT CPT-J1100 Decadron 8mg (Dexamethasone) 16:55:24 CDT CPT-11872 Chest 2V Frontal and Lat 16:32:44 CDT
--- OUTSIDE RECORDS SUMMARY | 2016-11-04 22:22 | XMS REPORT | Clinical Summary ---
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 Juliet Kimbrough [employer] Dependence on other enabling machines and devices [...] Active Ahmet Carbajal MD Generalized anxiety disorder Metal Neutralizer well woman exam V72.31 Resolved Suzan Boo [...] Caldera MD Elevated blood glucose ICD-790.29 Jim uHi MD Gait unsteady ICD-781.2 Inactive Albert Caldera MD Lipoma ICD-214.9 Inactive Albert Caldera MD Abdominal pain, RUQ ICD-789.01 Inactive Albert Caldera MD Chest pain, acute ICD-786.50 Inactive Albert Caldera MD Localized adiposity ICD-278.1 Inactive Vishal Hui MD Shortness of breath ICD-786.05 Inactive Vishal Hui MD Smoker/tobacco use disorder-smoking cessation discussed ICD-305.1 Inactive Vishal Hui MD Nocturnal hypoxia ICD-799.02 [...] Boo APRN DYSURIA ICD-788.1 Inactive Suzan Boo [employer] Cellulitis and abscess of breast ICD-611.0 Inactive Ahmet Carbajal MD Nondisplaced transverse fracture of shaft of left fibula, subsequent encounter for closed fracture with routine healing Inactive Suzan Boo [employer] Bronchitis, acute ICD-466.0 Inactive Ahmte Carbajal MD Metal Neutralizer well woman exam ICD-V72.31 Inactive Suzan Boo [employer] Bronchitis, acute with mild bronchospasm ICD-466.0 Inactive Suzan Boo [employer] Tracheitis ICD-464.10 Inactive Suzan Boo [employer] Impetigo ICD-684 Inactive Suzan Boo [employer] Furuncle of buttock ICD-680.5 Inactive Suzan Boo [employer] Vaginal irritation ICD-623.9 Inactive Suzan Boo APRN Scalding pain on urination ICD-788.1 Inactive Suzan Boo APRN Abdominal pain, right upper quadrant ICD-789.01 Inactive Suzan Boo [employer] Dark urine ICD-791.9 Inactive Suzan Boo APRN Preop exam ICD-V72.84 Inactive Suzan Boo APRN Medication List Medication Instructions Start Date Stop Date Generic Name NDC Status Provider Patient Instruction MUPIROCIN 2 % OINT apply twice a day MUPIROCIN 15142841077 Active Suzan Boo APRN Active BACTRIM DS 800-160 MG TABS 1 twice a day SULFAMETHOXAZOLE- TRIMETHOPRIM 49856535127 Active Suzan Boo APRN Active [id number] 50-325-40 MG TABS 1 to 2 four times a day as needed for headache [id number] 81007313855 Active Suzan Boo APRN Active METOCLOPRAMIDE HCL 10 MG TABS 1 two times as needed for nausea and headaches METOCLOPRAMIDE HCL 64323293521 Active Meena Ortiz MA Active NYSTATIN 327760 UNIT/GM CREA apply three times a day to yeast rash NYSTATIN 09902455982 Active Suzan Boo APRN Active AMITIZA 24 MCG ORAL CAPS one capsule twice daily LUBIPROSTONE 68164347796 Active Suzan Boo APRN Active MIRALAX ORAL POWD 17GMS DAILY IN WATER POLYETHYLENE GLYCOL 3350 45220307586 No Longer Active Suzan Boo APRN Active LACTULOSE 10 GM/15ML ORAL SOLN 30mL oral BID for IBS-C LACTULOSE 46437401633 No Longer Active Suzan Boo APRN Active BACTRIM DS 800-160 MG TAB Take one (1) tablet by mouth twice a day for 5 days TRIMETHOPRIM-SULFAMETHOXAZOLE 48661917579 No Longer Active Suzan Boo APRN Active MUPIROCIN 2 % OINT apply twice a day MUPIROCIN 58968503753 No Longer Active Suzan Boo APRN Active BACTRIM DS 800-160 MG TABS 1 twice a day SULFAMETHOXAZOLE-TRIMETHOPRIM 84337567939 No Longer Active Suzan Boo APRN Active DIFLUCAN 150 MG TABS 1 by mouth for yeast FLUCONAZOLE 24357953564 No Longer Active Suzan Boo APRN Active LINZESS 290 MCG ORAL CAPS 1 tab 30 min prior to first meal each day. LINACLOTIDE 78492870430 No Longer Active Sheila Calderon LPN Active AMITIZA 8 MCG ORAL CAPS 1 tab BID LUBIPROSTONE 77117681095 No Longer Active Lynda Juarezephraim [employer] SUPER[employer]OR Active TESSALON PERLES 100 MG CAPS 1 three times a day as needed for cough BENZONATATE 07931910649 No Longer Active Suzan Boo APRN Active BACTRIM DS 800-160 MG TABS 1 twice a day SULFAMETHOXAZOLE-TRIMETHOPRIM 15430807131 No Longer Active Suzan Boo APRN Active DIFLUCAN 150 MG TABS 1 by mouth for yeast FLUCONAZOLE 73215568808 No Longer Active Suzan Boo APRN Active EQ NICOTINE 21 MG/24HR TRANS PT24 Apply daily to stop smoking NICOTINE 72638959509 No Longer Active Suzan Boo APRN Active PREDNISONE 10 MG TABS 2 daily for 5 days then 1 daily for 5 days PREDNISONE 95914553392 No Longer Active Suzan Boo APRN Active LEVAQUIN 500 MG TABS 1 daily for infection LEVOFLOXACIN 86359126527 No Longer Active Suzan Boo APRN Active TROPICAMIDE 0.5 % OPHTH SOLN 1 drop PRN eye spasms TROPICAMIDE 44713958076 No Longer Active Suzan Boo APRN Active PREDNISONE 20 MG TAB 1 tablet daily x 4 days PREDNISONE 94871855147 No Longer Active Suzan Boo APRN Active ACETAMINOPHEN-CODEINE 120-12 MG/5ML SOLN 5 ml by mouth every 4-6 hours if needed for cough ACETAMINOPHEN-CODEINE 06357262369 No Longer Active Suzan Boo APRN Active KEFLEX 500 MG CAP 1 po qid CEPHALEXIN 33639721308 No Longer Active Suzan Boo APRN Active FLOVENT HFA 110 MCG/ACT AERO 2 puffs inhaled b.i.d. FLUTICASONE PROPIONATE HFA 59204509406 Active Renzo Thornton DO Active RISPERDAL 4 MG ORAL TABS 1 tab at bedtime RISPERIDONE 80048035611 Active Samantha Rothman RMA Active ZOFRAN 4 MG TABS 1 po q6hr PRN Nausea ONDANSETRON HCL No Longer Active Suzan Boo APRN Active FLUTICASONE PROPIONATE 50 MCG/ACT SUSP 2 sprays each nostril daily before bed. FLUTICASONE PROPIONATE 04917695847 No Longer Active Suzan Boo APRN Active ASPIRIN 325 MG ORAL TABS 1 tab q.d ASPIRIN 07380478803 No Longer Active Suzan Boo APRN Active HALOPERIDOL 10 MG ORAL TABS 1 tab q.d HALOPERIDOL 94562002972 No Longer Active Suzan Boo APRN Active GUAIFENESIN-CODEINE 100-10 MG/5ML SYRP 5ml every 4 to 6 hours as needed for cough GUAIFENESIN-CODEINE 88926886454 No Longer Active Suzan Boo APRN Active ZITHROMAX Z-EARNEST 250 MG TABS 2 today and then 1 daily for 4 days AZITHROMYCIN 36668549697 No Longer Active Suzan Boo APRN Active CLONAZEPAM 1 MG ORAL TABS 1 twice a day and an additional 1 tablet every other day as needed for pseudoseizures or anxiety CLONAZEPAM 17724104110 Active Suzan Boo APRN Active HYDROCODONE-ACETAMINOPHEN 5-325 MG ORAL TABS 1 tab two times a day HYDROCODONE-ACETAMINOPHEN 39804534615 No Longer Active Ahmet Carbajal MD Active LAMICTAL 100 MG ORAL TABS 1 tab 2 times qd. LAMOTRIGINE 83724291574 Active Ahmet Carbajal MD Active PREDNISONE 20 MG TABS 2 daily for 5 days then 1 daily for 5 days PREDNISONE 19544251203 No Longer Active Ahmet Carbajal MD Active FLUTICASONE PROPIONATE 50 MCG/ACT SUSP 1 to 2 sprays each nostril daily for allergies FLUTICASONE PROPIONATE 88879302245 Active Tila Nicolas Active BENADRYL 25 MG CAP 4 po at bedtime for insomnia DIPHENHYDRAMINE HCL 34296289439 No Longer Active Ahmet Carbajal MD Active ADVAIR DISKUS 250-50 MCG/DOSE INH AEPB 1 puff twice a day for asthma FLUTICASONE-SALMETEROL 30387179491 No Longer Active Ahmet Carbajal MD Active KLONOPIN 1 MG ORAL TABS 1 tab po TID CLONAZEPAM 00966330312 No Longer Active Ahmet Carbajal MD Active ABILIFY MAINTENA 400 MG IM SUSR 400mg injection every 26 days ARIPIPRAZOLE 74542480713 No Longer Active Ahmet Carbajal MD Active TRAMADOL HCL 50 MG TABS 1/2-1 tab TID PRN TRAMADOL HCL 98234437212 No Longer Active Ahmet Carbajal MD Active BACTRIM DS 800-160 MG TABS 1 twice a day SULFAMETHOXAZOLE- TRIMETHOPRIM 12864615107 No Longer Active Ahmet Carbajal MD Active PROAIR HFA 108 (90 BASE) MCG/ACT AERS 2 puffs four times a day as needed 2015 ALBUTEROL SULFATE 19386361887 Active Honey Hinton [employer] ASSOCIATE Active MONISTAT 7 COMBO PACK WOODROW 100 & 2 MG-% (9GM) VAG KIT 1 applicatorful per vagina q pm x 7 MICONAZOLE NITRATE 26322424349 No Longer Active Ahmet Carbajal MD Active FLAGYL 500 MG TAB 1 tablet by mouth bid METRONIDAZOLE 53110553104 No Longer Active Ahmet Carbajal MD Active OXYCODONE HCL ER 10 MG ORAL T12A 1/2 tab by mouth every 4 hours prn OXYCODONE HCL 16429601395 No Longer Active Ahmet Carbajal MD Active METHYLPREDNISOLONE 4 MG ORAL TABS po daily METHYLPREDNISOLONE 05830236386 No Longer Active Ahmet Carbajal MD Active LEVOFLOXACIN 500 MG ORAL TABS po daily LEVOFLOXACIN 46812778014 No Longer Active Ahmet Carbajal MD Active VIIBRYD 10 MG ORAL TABS Take 1 tablet once a day VILAZODONE HCL 54545319085 No Longer Active Ahmet Carbajal MD Active TOPAMAX 50 MG ORAL TABS 1 tab twice daily TOPIRAMATE 74593997832 No Longer Active Ahmet Carbajal MD Active DICLOFENAC SODIUM 50 MG TBEC 1 tablet by mouth four times daily PRN Pain 2015 DICLOFENAC SODIUM 56680783468 No Longer Active Ahmet Carbajal MD Active ADZENYS XR-ODT 6.3 MG ORAL TBED 1 tab po daily for ADHD AMPHETAMINE 12582873409 No Longer Active Ahmet Carbajal MD Active CHANTIX 1 MG TABS 1 twice a day to help quit smoking VARENICLINE TARTRATE 18370147849 No Longer Active Dipika Burgos MD Active CHANTIX STARTING MONTH EARNEST 0.5 MG X 11 & 1 MG X 42 TABS take as directed 2015 VARENICLINE TARTRATE 01193492001 No Longer Active Dipika Burgos MD Active TESSALON PERLES 100 MG CAP 1 to 2 tablets by mouth 3 times daily as needed for cough BENZONATATE 51642048625 No Longer Active Luigi Martínez APRN Active IMITREX 50 MG ORAL TABS 0.5 po x 1 PRN Headache. May repeat dose x 1 in 2 hours if needed SUMATRIPTAN SUCCINATE 80802878363 Active TAMARA Casey Active HYDROCODONE-ACETAMINOPHEN 5-325 MG TABS 1 to 2 four times a day as needed for pain use until can be seen by specialist HYDROCODONE- ACETAMINOPHEN 43807785549 No Longer Active Vishal Hui MD Active PROAIR HFA 108 (90 BASE) MCG/ACT AERS 2 puffs four times a day as needed 2015 ALBUTEROL SULFATE 06594904961 No Longer Active Vishal Hui MD Active PREDNISONE 20 MG TABS 2 daily for 5 days then 1 daily for 5 days PREDNISONE 04082767618 No Longer Active Vishal Hui MD Active ZITHROMAX Z-EARNEST 250 MG TABS 2 today and then 1 daily for 4 days AZITHROMYCIN 33428998709 No Longer Active Vishal Hui MD Active DICLOFENAC POTASSIUM TABS Take 1 tablet twice a day (pt. is not sure of the dose.) DICLOFENAC POTASSIUM TABS 92435934166 No Longer Active Vishal Hui MD Active VERAPAMIL HCL ER 120 MG ORAL CR-TABS Take 1 tablet by mouth twice a day. VERAPAMIL HCL 33884148782 Active Vishal Hui MD Active FLAGYL 500 MG TAB 1 tablet by mouth bid METRONIDAZOLE 19182765171 No Longer Active Vishal Hui MD Active VALIUM 5 MG TAB Take 1-2 tablets daily DIAZEPAM 20126160844 No Longer Active Fabiola Johnson APRN Active METOPROLOL TARTRATE 25 MG ORAL TABS 1/2 tablet twice daily for heart rate and blood pressure METOPROLOL TARTRATE 06024053678 No Longer Active Fabiola Johnson APRN Active MIRALAX PACK 1 po qd PRN Constipation POLYETHYLENE GLYCOL 3350 04219145665 No Longer Active Ahmet Carbajal MD Active MINIPRESS 2 MG CAPS 4 cap po at night PRAZOSIN HCL 28011586402 No Longer Active Ahmet Carbajal MD Active PIROXICAM 20 MG CAPS 1 cap po qd PRN Pain PIROXICAM 97336692675 No Longer Active Ahmet Carbajal MD Active TRAMADOL HCL 50 MG TABS 1-2 po TID PRN Pain TRAMADOL HCL 53325496260 No Longer Active Ahmet Carbajal MD Active METOPROLOL TARTRATE 50 MG TAB 1 po bid METOPROLOL TARTRATE 27191397795 No Longer Active Ahmet Carbajal MD Active ABILIFY 15 MG ORAL TABS 1 tab daily ARIPIPRAZOLE 73069989395 No Longer Active Ahmet Carbajal MD Active PROZAC 20 MG ORAL CAPS 1 tab daily FLUOXETINE HCL 10668984411 No Longer Active Ahmet Carbajal MD Active AMBIEN 5 MG ORAL TABS 1 tab at bedtime ZOLPIDEM TARTRATE 08934504201 No Longer Active Ahmet Carbajal MD Active PREDNISONE 20 MG TAB 2 tabs daily for 4 days, 1 tab daily for 4 days, 1/2 tab daily for 4 days PREDNISONE 40210877119 No Longer Active Ahmet Carbajal MD Active KEFLEX 500 MG CAP 1 po TID x 10 days CEPHALEXIN 95595118299 No Longer Active Vishal Hui MD Active SAPHRIS 5 MG SUBL 1 po bid ASENAPINE MALEATE 85749599696 No Longer Active Jillina Frazell ADVANC[employer] ANALYTICS ASSOCIATE Active LATUDA 80 MG TABS Take one by mouth daily LURASIDONE HCL 98064120942 No Longer Active Jillina Frazell ADVANCED ANALYTICS ASSOCIATE Active AMLODIPINE BESYLATE 5 MG TABS 1 tablet by mouth daily AMLODIPINE BESYLATE 49309266385 No Longer Active Jillina Frazell ADVANCED ANALYTICS ASSOCIATE Active AMITRIPTYLINE HCL 100 MG TAB one at hs AMITRIPTYLINE HCL 22539676519 No Longer Active Vishal Hui MD Active TRAZODONE HCL 100 MG TAB take 1 at bedtime TRAZODONE HCL 88568201351 No Longer Active Vishal Hui MD Active VYVANSE 40 MG CAPS 1 daily, LISDEXAMFETAMINE DIMESYLATE 85913599757 No Longer Active Vishal Hui MD Active IBUPROFEN 600 MG TAB 1 po TID PRN IBUPROFEN 83992024991 No Longer Active Vishal Hui MD Active PROZAC 20 MG CAP Take one by mouth daily FLUOXETINE HCL 07565886051 No Longer Active Vishal Hui MD Active BACTRIM DS 800-160 MG TABS 1 pill by mouth twice daily SULFAMETHOXAZOLE-TRIMETHOPRIM 40051722728 No Longer Active Sahara Rodriguez MD PhD Active DIFLUCAN 150 MG TAB 1 tablet by mouth daily FLUCONAZOLE 06694725658 No Longer Active Vishal Hui MD Active TIZANIDINE HCL 4 MG TABS 1 po q6hr PRN Muscle Spasm/Back Pain TIZANIDINE HCL 22865000553 Active TAMARA Casey Active CLINDAMYCIN HCL 150 MG CAPS 1 four times a day CLINDAMYCIN HCL 98246943224 No Longer Active Neeraj Collins MD Active KEFLEX 500 MG ORAL CAPS 1 cap QID by mouth CEPHALEXIN 75108297842 No Longer Active Neeraj Collins MD Active DIFLUCAN 150 MG TABS 1 pill every other day x 2 doses FLUCONAZOLE 39668541532 No Longer Active Sahara Rodriguez MD PhD Active MELATONIN 3 MG CAPS 2 po q hs MELATONIN 74589124254 No Longer Active Sahara Rodriguez MD PhD Active MULTIVITAMINS CAPS Take one by mouth daily MULTIPLE VITAMIN 17513925353 No Longer Active Sahara Rodriguez MD PhD Active BACTRIM DS 800-160 MG TAB 1 tab by mouth twice daily TRIMETHOPRIM-SULFAMETHOXAZOLE 23679511496 No Longer Active Sahara Rodriguez MD PhD Active [facility] PROBIOTIC ORAL CHEW 2 daily po PROBIOTIC PRODUCT 51592508753 No Longer Active Sahara Rodriguez MD PhD Active BACTRIM DS 800-160 MG TABS 1 po BID x 7 days SULFAMETHOXAZOLE-TRIMETHOPRIM 14405910272 No Longer Active Vishal Hui MD Active CHANTIX STARTING MONTH EARNEST 0.5 MG X 11 & 1 MG X 42 TABS 0.5mg daily for 3 days , then 0.5mg BID for 4 days, then 1mg BID VARENICLINE TARTRATE 84902408041 No Longer Active Lisette Scarrow, RMA Active VERAPAMIL HCL CR 120 MG TAB CR 1 po bid VERAPAMIL HCL 24434342564 No Longer Active Vishal Hui MD Active METOPROLOL SUCCINATE 50 MG TB24 1 tablet by mouth daily METOPROLOL SUCCINATE 32857959562 No Longer Active Vishal Hui MD Active SAPHRIS 10 MG SUBL 1 tab po bid ASENAPINE MALEATE 38166116674 No Longer Active Vishal Hui MD Active LISINOPRIL 20 MG TABS 1 tab po qd LISINOPRIL 00620243349 No Longer Active Vishal Hui MD Active LATUDA 20 MG TABS Take one by mouth daily LURASIDONE HCL 89319558176 No Longer Active Vishal Hui MD Active TRAZODONE HCL 50 MG TABS 1/2 tab po qd prn for anxiety TRAZODONE HCL 87503724456 No Longer Active Vishal Hui MD Active OMEPRAZOLE 20 MG TBEC 1 po q a.m. 30min prior to first food intake OMEPRAZOLE 31125815785 Active Bertha Kirby, TAMARA Active RANITIDINE HCL 150 MG CAPS 1 twice a day RANITIDINE HCL 40107822314 Active Lynda Xiao LPN Active LINZESS 290 MCG CAPS Take one by mouth daily LINACLOTIDE 99979482213 No Longer Active Vishal Hui MD Active SAPHRIS 5 MG SUBL 1 tab po qd ASENAPINE MALEATE 31287138870 No Longer Active Vishal Hui MD Active ZALEPLON 10 MG CAPS 1 cap po every other night ZALEPLON 68692899443 No Longer Active Vishal Hui MD Active LYRICA 50 MG CAPS 1 tab po TID PREGABALIN 35675951171 No Longer Active Vishal Hui MD Active LORATADINE 10 MG TABS 1 tab po qd LORATADINE 39749721679 No Longer Active Vishal Hui MD Active VERAPAMIL HCL ER 180 MG CR-TABS 1 tab po bid VERAPAMIL HCL 09356366573 No Longer Active Vishal Hui MD Active MIRALAX POWD 1 capfull once daily POLYETHYLENE GLYCOL 3350 31644776715 No Longer Active Vishal Hui MD Active PREDNISONE 20 MG TABS 1 tab po qd PREDNISONE 34850805241 No Longer Active Renzo Thornton DO Active LEVOFLOXACIN 500 MG TABS 1 tab po qd LEVOFLOXACIN 36402099997 No Longer Active Renzo Thornton DO Active BUSPIRONE HCL 15 MG TABS 1 tab po TID BUSPIRONE HCL 46979736352 No Longer Active Renzo Thornton DO Active BENZTROPINE MESYLATE 1 MG TABS 1 tab po qd BENZTROPINE MESYLATE 38546226144 No Longer Active Renzo Thornton DO Active ATENOLOL 25 MG TABS 1 tab po qd ATENOLOL 09137298041 No Longer Active Renzo Thornton DO Active ESCITALOPRAM OXALATE 20 MG TABS 1 tab po qd ESCITALOPRAM OXALATE 14848803200 No Longer Active Renzo Thornton DO Active ADVAIR DISKUS 250-50 MCG/DOSE AEPB 1 puff BID FLUTICASONE-SALMETEROL 62046439022 No Longer Active Renzo Thornton DO Active PREDNISONE 20 MG TAB 2 tabs daily for 3 days, 1 tab daily for 3 days, 1/2 tab daily for 2 days PREDNISONE 08222745621 No Longer Active Vishal Hui MD Active CEFDINIR 300 MG CAPS by mouth twice a day CEFDINIR 38330051343 No Longer Active Vishal Hui MD Active LANSOPRAZOLE 30 MG CPDR 1 cap po qd LANSOPRAZOLE 12037737989 No Longer Active Vishal Hui MD Active BACLOFEN 20 MG TABS 1 tab po tid BACLOFEN 99394407607 No Longer Active Vishal Hui MD Active ADVAIR DISKUS 250-50 MCG/DOSE AEPB 1 puff BID ADVAIR DISKUS 250-50 MCG/DOSE AEPB FLUTICASONE-SALMETEROL Inactive ESCITALOPRAM OXALATE 20 MG TABS 1 tab po qd ESCITALOPRAM OXALATE 20 MG TABS 923625 ESCITALOPRAM OXALATE Inactive ATENOLOL 25 MG TABS 1 tab po qd ATENOLOL 25 MG TABS 336969 ATENOLOL Inactive BENZTROPINE MESYLATE 1 MG TABS 1 tab po qd BENZTROPINE MESYLATE 1 MG TABS 366378 BENZTROPINE MESYLATE Inactive BUSPIRONE HCL 15 MG TABS 1 tab po TID BUSPIRONE HCL 15 MG TABS 390827 BUSPIRONE HCL Inactive LEVOFLOXACIN 500 MG TABS 1 tab po qd LEVOFLOXACIN 500 MG TABS 318791 LEVOFLOXACIN Inactive PREDNISONE 20 MG TABS 1 tab po qd PREDNISONE 20 MG TABS 663937 PREDNISONE Inactive MIRALAX POWD 1 capfull once daily MIRALAX POWD 981538 POLYETHYLENE GLYCOL 3350 Inactive VERAPAMIL HCL ER 180 MG CR-TABS 1 tab po bid VERAPAMIL HCL ER 180 MG CR-TABS VERAPAMIL HCL Inactive LORATADINE 10 MG TABS 1 tab po qd LORATADINE 10 MG TABS 255782 LORATADINE Inactive LYRICA 50 MG CAPS 1 tab po TID LYRICA 50 MG CAPS PREGABALIN Inactive ZALEPLON 10 MG CAPS 1 cap po every other night ZALEPLON 10 MG CAPS 638709 ZALEPLON Inactive SAPHRIS 5 MG SUBL 1 tab po qd SAPHRIS 5 MG SUBL ASENAPINE MALEATE Inactive TRAZODONE HCL 50 MG TABS 1/2 tab po qd prn for anxiety TRAZODONE HCL 50 MG TABS 553270 TRAZODONE HCL Inactive LATUDA 20 MG TABS Take one by mouth daily LATUDA 20 MG TABS LURASIDONE HCL Inactive LISINOPRIL 20 MG TABS 1 tab po qd LISINOPRIL 20 MG TABS 074337 LISINOPRIL Inactive SAPHRIS 10 MG SUBL 1 [...] twice daily BACTRIM DS 800-160 MG TAB 258856 TRIMETHOPRIM-SULFAMETHOXAZOLE Inactive MULTIVITAMINS CAPS Take one by mouth daily MULTIVITAMINS CAPS MULTIPLE VITAMIN Inactive MELATONIN 3 MG CAPS 2 po q hs MELATONIN 3 MG CAPS 682092 MELATONIN Inactive KEFLEX 500 MG ORAL CAPS 1 cap QID by mouth KEFLEX 500 MG ORAL CAPS 171244 CEPHALEXIN Inactive CLINDAMYCIN HCL 150 MG CAPS 1 four times a day CLINDAMYCIN HCL 150 MG CAPS 19740326 CLINDAMYCIN HCL Inactive DIFLUCAN 150 MG TAB 1 tablet by mouth daily DIFLUCAN 150 MG TAB 828356 FLUCONAZOLE Inactive PROZAC 20 MG CAP Take one by mouth daily PROZAC 20 MG CAP 132522 FLUOXETINE HCL Inactive IBUPROFEN 600 MG TAB 1 po TID PRN IBUPROFEN 600 MG TAB 584479 IBUPROFEN Inactive VYVANSE 40 MG CAPS 1 daily, VYVANSE 40 MG CAPS LISDEXAMFETAMINE DIMESYLATE Inactive TRAZODONE HCL 100 MG TAB take 1 at bedtime TRAZODONE HCL 100 MG TAB 849180 TRAZODONE HCL Inactive AMITRIPTYLINE HCL 100 MG TAB one at hs AMITRIPTYLINE HCL 100 MG TAB 020198 AMITRIPTYLINE HCL Inactive AMLODIPINE BESYLATE 5 MG TABS 1 tablet by mouth daily AMLODIPINE BESYLATE 5 MG TABS 842950 AMLODIPINE BESYLATE Inactive LATUDA 80 MG TABS Take one by mouth daily LATUDA 80 MG TABS LURASIDONE HCL Inactive SAPHRIS 5 MG SUBL 1 po bid SAPHRIS 5 MG SUBL ASENAPINE MALEATE Inactive PREDNISONE 20 MG TAB 2 tabs daily for 4 days, 1 tab daily for 4 days, 1/2 tab daily for 4 days PREDNISONE 20 MG TAB 135187 PREDNISONE Inactive AMBIEN 5 MG ORAL TABS 1 tab at bedtime AMBIEN 5 MG ORAL TABS 888459 ZOLPIDEM TARTRATE Inactive PROZAC 20 MG ORAL CAPS 1 tab daily PROZAC 20 MG ORAL CAPS 909684 FLUOXETINE HCL Inactive ABILIFY 15 MG ORAL TABS 1 tab daily ABILIFY 15 MG ORAL TABS 454717 ARIPIPRAZOLE Inactive METOPROLOL TARTRATE 50 MG TAB 1 po bid METOPROLOL TARTRATE 50 MG TAB 789854 METOPROLOL TARTRATE Inactive TRAMADOL HCL 50 MG TABS 1-2 po TID PRN Pain TRAMADOL HCL 50 MG TABS 957991 TRAMADOL HCL Inactive PIROXICAM 20 MG CAPS 1 cap po qd PRN Pain PIROXICAM 20 MG CAPS 494601 PIROXICAM Inactive MINIPRESS 2 MG CAPS 4 cap po at night MINIPRESS 2 MG CAPS 828370 PRAZOSIN HCL Inactive MIRALAX PACK 1 po qd PRN Constipation MIRALAX PACK 908282 POLYETHYLENE GLYCOL 3350 Inactive METOPROLOL TARTRATE 25 MG ORAL TABS 1/2 tablet twice daily for heart rate and blood pressure METOPROLOL TARTRATE 25 MG ORAL TABS 572019 METOPROLOL TARTRATE Inactive VALIUM 5 MG TAB Take 1-2 tablets daily VALIUM 5 MG TAB 137492 DIAZEPAM Inactive FLAGYL 500 MG TAB 1 tablet by mouth bid FLAGYL 500 MG TAB 195797 METRONIDAZOLE Inactive DICLOFENAC POTASSIUM TABS Take 1 tablet twice a day (pt. is not sure of the dose.) DICLOFENAC POTASSIUM TABS DICLOFENAC POTASSIUM TABS Inactive ZITHROMAX Z-EARNEST 250 MG TABS 2 today and then 1 daily for 4 days ZITHROMAX Z-EARNEST 250 MG TABS 3472878 AZITHROMYCIN Inactive PREDNISONE 20 MG TABS 2 daily for 5 days then 1 daily for 5 days PREDNISONE 20 MG TABS 628483 PREDNISONE Inactive PROAIR HFA 108 (90 BASE) MCG/ACT AERS 2 puffs four times a day as needed 2015 PROAIR HFA 108 (90 BASE) MCG/ACT AERS ALBUTEROL SULFATE Inactive HYDROCODONE-ACETAMINOPHEN 5-325 MG TABS 1 to 2 four times a day as needed for pain use until can be seen by specialist HYDROCODONE- ACETAMINOPHEN 5-325 MG TABS 171130 HYDROCODONE-ACETAMINOPHEN Inactive TESSALON PERLES 100 MG CAP 1 to 2 tablets by mouth 3 times daily as needed for cough TESSALON PERLES 100 MG CAP 053850 BENZONATATE Inactive CHANTIX STARTING MONTH EARNEST 0.5 [...] Pain 2015 DICLOFENAC SODIUM 50 MG TBEC 812013 DICLOFENAC SODIUM Inactive TOPAMAX 50 MG ORAL TABS 1 tab twice daily TOPAMAX 50 MG ORAL TABS 792716 TOPIRAMATE Inactive VIIBRYD 10 MG ORAL TABS Take 1 tablet once a day VIIBRYD 10 MG ORAL TABS VILAZODONE HCL Inactive LEVOFLOXACIN 500 MG ORAL TABS po daily LEVOFLOXACIN 500 MG ORAL TABS 931666 LEVOFLOXACIN Inactive METHYLPREDNISOLONE 4 MG ORAL TABS po daily METHYLPREDNISOLONE 4 MG ORAL TABS 720926 METHYLPREDNISOLONE Inactive OXYCODONE HCL ER 10 MG ORAL T12A 1/2 tab by mouth every 4 hours prn OXYCODONE HCL ER 10 MG ORAL T12A OXYCODONE HCL Inactive FLAGYL 500 MG TAB 1 tablet by mouth bid FLAGYL 500 MG TAB 573159 METRONIDAZOLE Inactive MONISTAT 7 COMBO PACK WOODROW 100 & 2 MG-% (9GM) VAG KIT 1 applicatorful per vagina q pm x 7 MONISTAT 7 COMBO PACK WOODROW 100 & 2 MG-% (9GM) VAG KIT MICONAZOLE NITRATE Inactive BACTRIM DS 800-160 MG TABS 1 twice a day BACTRIM DS 800-160 MG TABS 558457 SULFAMETHOXAZOLE-TRIMETHOPRIM Inactive TRAMADOL HCL 50 MG TABS 1/2-1 tab TID PRN TRAMADOL HCL 50 MG TABS 328306 TRAMADOL HCL Inactive ABILIFY MAINTENA 400 MG IM SUSR 400mg injection every 26 days ABILIFY MAINTENA 400 MG IM SUSR ARIPIPRAZOLE Inactive KLONOPIN 1 MG ORAL TABS 1 tab po TID KLONOPIN 1 MG ORAL TABS 144609 CLONAZEPAM Inactive ADVAIR DISKUS 250-50 MCG/DOSE INH AEPB 1 puff twice a day for asthma ADVAIR DISKUS 250-50 MCG/DOSE INH AEPB FLUTICASONE- SALMETEROL Inactive BENADRYL 25 MG CAP 4 po at bedtime for insomnia BENADRYL 25 MG CAP DIPHENHYDRAMINE HCL Inactive PREDNISONE 20 MG TABS 2 daily for 5 days then 1 daily for 5 days PREDNISONE 20 MG TABS [id number] PREDNISONE Inactive HYDROCODONE-ACETAMINOPHEN 5-325 MG ORAL TABS 1 tab two times a day HYDROCODONE-ACETAMINOPHEN 5-325 MG ORAL TABS [id number] HYDROCODONE-ACETAMINOPHEN Inactive ZITHROMAX Z-EARNEST 250 MG TABS 2 today and then 1 daily for 4 days ZITHROMAX Z-EARNEST 250 MG TABS [id number] AZITHROMYCIN Inactive GUAIFENESIN-CODEINE 100-10 MG/5ML SYRP 5ml every 4 to 6 hours as needed for cough GUAIFENESIN-CODEINE 100-10 MG/5ML SYRP [id number] GUAIFENESIN-CODEINE Inactive HALOPERIDOL 10 MG ORAL TABS 1 tab q.d HALOPERIDOL 10 MG ORAL TABS 454773 HALOPERIDOL Inactive ASPIRIN 325 MG ORAL TABS 1 tab q.d ASPIRIN 325 MG ORAL TABS 290595 ASPIRIN Inactive FLUTICASONE PROPIONATE 50 MCG/ACT SUSP 2 sprays each nostril daily before bed. FLUTICASONE PROPIONATE 50 MCG/ACT SUSP 6903447 FLUTICASONE PROPIONATE Inactive ZOFRAN 4 MG TABS 1 po q6hr PRN Nausea ZOFRAN 4 MG TABS 414515 ONDANSETRON HCL Inactive KEFLEX 500 MG CAP 1 po qid KEFLEX 500 MG CAP 004913 CEPHALEXIN Inactive ACETAMINOPHEN-CODEINE 120-12 MG/5ML SOLN 5 ml by mouth every 4-6 hours if needed for cough ACETAMINOPHEN-CODEINE 120-12 MG/5ML SOLN 992363 ACETAMINOPHEN-CODEINE Inactive PREDNISONE 20 MG TAB 1 tablet daily x 4 days PREDNISONE 20 MG TAB 848312 PREDNISONE Inactive TROPICAMIDE 0.5 % OPHTH SOLN 1 drop PRN eye spasms TROPICAMIDE 0.5 % OPHTH SOLN 973467 TROPICAMIDE Inactive LEVAQUIN 500 MG TABS 1 daily for infection LEVAQUIN 500 MG TABS 326275 LEVOFLOXACIN Inactive PREDNISONE 10 MG TABS 2 daily for 5 days then 1 daily for 5 days PREDNISONE 10 MG TABS 805789 PREDNISONE Inactive EQ NICOTINE 21 MG/24HR TRANS [...] for cough TESSALON PERLES 100 MG CAPS 273382 BENZONATATE Inactive AMITIZA 8 MCG ORAL CAPS [...] twice a day MUPIROCIN 2 % OINT 334986 MUPIROCIN Inactive BACTRIM DS 800-160 MG TAB Take one (1) tablet by mouth twice a day for 5 days BACTRIM DS 800-160 MG TAB 19820521 TRIMETHOPRIM- SULFAMETHOXAZOLE Inactive LACTULOSE 10 GM/15ML ORAL SOLN 30mL oral BID for IBS-C LACTULOSE 10 GM/15ML ORAL SOLN 801129 LACTULOSE Inactive MIRALAX ORAL POWD 17GMS DAILY IN WATER MIRALAX ORAL POWD 253414 POLYETHYLENE GLYCOL 3350 Inactive CEFDINIR 300 MG CAPS by mouth twice a day CEFDINIR 300 MG CAPS 858955 CEFDINIR Inactive PREDNISONE 20 MG TAB 2 tabs daily for 3 days, 1 tab daily for 3 days, 1/2 tab daily for 2 days PREDNISONE 20 MG TAB 448863 PREDNISONE Inactive BACTRIM DS 800-160 MG TABS 1 po BID x 7 days BACTRIM DS 800-160 MG TABS 19820521 SULFAMETHOXAZOLE-TRIMETHOPRIM Inactive DIFLUCAN 150 MG TABS 1 pill every other day x 2 doses DIFLUCAN 150 MG TABS 681102 FLUCONAZOLE Inactive BACTRIM DS 800-160 MG TABS 1 pill by mouth twice daily BACTRIM DS 800-160 MG TABS 19820521 SULFAMETHOXAZOLE-TRIMETHOPRIM Inactive KEFLEX 500 MG CAP 1 po TID x 10 days KEFLEX 500 MG CAP 104156 CEPHALEXIN Inactive Advance Directives Directive Description Start [...] % 11.0-15.0 platelet count 443 THOUSAND/UL 10*3/mm3 119-078 3831/03/01 mean platelet volume 8.2 fL 7.5-12.5 leukocyte [...] % 11.0-15.0 platelet count 349 THOUSAND/UL 10*3/mm3 232-058 1351/04/12 mean platelet volume 8.4 fL 7.5-12.5 Lab Report: CBC W/DIFF, Comp. Metabolic Panel, HGBA1C, Magnesium - Chemistry sodium, serum 141 mmol/L 806-661 3970/07/24 carbon dioxide, venous blood 27.8 mmol/L 21.0-32.0 [...] 369 10^3/MM^3 10*3/mm3 142-424 Lab Report: Chlamydia/GC APTIMA/02237 - Lab chlamydia DNA probe NOT DETECTED NOT DETECTED Lab Report: Chlamydia/GC [facility]TIM[facility]/22436 - Microbiology Neisseria gonorrhoeae DNA probe NOT DETECTED NOT DETECTED Lab Report: Chlamydia/GC [facility]/64109, Urinalysis, Complete, with Reflex ... - Lab chlamydia DNA probe NOT DETECTED NOT DETECTED Lab Report: Chlamydia/GC [facility]/62458, Urinalysis, Complete, with Reflex ... - Microbiology Neisseria gonorrhoeae DNA probe NOT DETECTED NOT DETECTED Lab Report: Chlamydia/GC [facility]TIM[facility]/34206, Urinalysis, Complete, with Reflex ... - Urinalysis microalbumin/total urine volume 2 mg/L Units converted. See lab report for original value. microalbumin/creatinine ratio, urine 9 MCG/MG CREAT mg/L <30 Lab Report: Comp. Metabolic Panel - Chemistry sodium, serum 140 mmol/L 995-698 5527/06/28 carbon dioxide, venous blood 23.8 mmol/L 21.0-32.0 [...] negative Encounters Code Encounter Date Provider Facility CPT-62048 Level 3 Est. Patient 11:36:47 CDT Suzan Boo [facility] [place]-47783 Level 3 Est. [facility] 10:53:[facility] 11:08:35 [facility] 3 Est. Patient 15:55:20 [facility] Level 4 Est. Patient 10:49:34 CDT Suzan Boo [facility] [place]-71763 Level 3 Est. [facility] 10[facility]00:[facility] Level 3 Est. Patient 10:29:30 CDT Suzan Boo [facility] CPT-02234 Level 3 Est. Patient 11:04:38 CDT [facility]73224 Level 3 Est. Patient 11:15:58 [employer] Renzo Thornton [facility] [place]-44253 Level 3 Est. Patient 15:28:23 [employer] Suzan Boo [facility] CPT-25397 Level 4 Est. Patient 10:20:54 [employer] Suzan Boo [facility] [place]-69275 Level 3 Est. Patient 11:47:37 [employer] Ahmet Carbajal MD [facility]-70172 Level 3 Est. Patient 10:40:11 [employer] Ahmet Carbajal MD [facility]-47566 Level 3 Est. Patient 15:07:06 [employer] Neeraj Collins MD [facility] CPT-94527 Level 4 Est. Patient 14:45:00 [employer] Ahmet Carbajal MD [facility] CPT-18203 Level 3 Est. Patient 13:59:59 CDT Luigi Martínez [facility] CPT-42080 Level 3 Est. Patient 18:18:53 CDT Neeraj Collins MD [facility] CPT-18683 Level 3 Est. Patient 15:50:44 CDT Vishal Hui MD [facility] CPT-31864 Level 3 Est. Patient 11:36:17 CDT Ahmet Carbajal MD [facility] CPT-15305 Level 3 Est. Patient 13:29:16 CDT Vishal Hui MD [facility] CPT-73684 Level 3 Est. Patient 14:27:52 CDT Neeraj Collins MD [facility] CPT-21488 Level 3 Est. Patient 08:56:03 CDT Luigi Martínez [facility] CPT-59393 Level 4 Est. Patient 12:11:48 CDT Fabiola Johnson [facility] CPT-78454 Level 3 New Patient 16:53:37 CDT Albert Caldera MD [facility] CPT-19174 Level 3 Est. Patient 11:25:49 CDT Renzo Thornton DO [facility] CPT-38671 Level 3 Est. Patient 15:22:01 CDT Ahmet Carbajal MD [facility] CPT-52756 Level 4 Est. Patient 09:00:51 [employer] Vishal Hui MD [facility] CPT-30884 Level 3 Est. Patient 11:37:33 [employer] Vishal Hui MD [facility] CPT-07771 Level 3 Est. Patient 08:41:09 [employer] Vishal Hui MD [facility] CPT-57007 Level 4 Est. Patient 10:19:35 [employer] Vishal Hui MD [facility] CPT-54059 Level 3 Est. Patient 13:35:45 CDT Vishal Hui MD [facility] CPT-05010 Level 4 Est. Patient 10:08:37 CDT Vishal Hui MD [facility] CPT-59477 Level 3 Est. Patient 11:22:10 CDT Vishal Hui MD [facility] CPT-74520 Level 3 Est. Patient 11:03:32 CDT Sahara Rodriguez MD [facility]-94774 Level 3 Est. Patient 09:41:35 CDT Vishal Hui MD [facility] CPT-47648 Level 3 Est. Patient 12:00:41 CDT Neeraj Collins MD [facility] CPT-29598 Level 3 Est. Patient 09:16:24 CDT Vishal Hui MD [facility] CPT-92344 Level 4 Est. Patient 13:59:09 CDT Neeraj Collins MD [facility] CPT-79659 Level 3 Est. Patient 15:19:43 CDT Renzo Thornton DO [facility] CPT-35968 Level 3 Est. Patient 18:10:26 CDT Sahara Rodriguez MD [facility] CPT-54080 Level 3 Est. Patient 14:49:50 CDT Vishal Hui MD [facility] CPT-58952 Level 4 Est. Patient 18:41:46 CDT Neeraj Collins MD [facility] [place]-64162 Level 4 Est. Patient 09:18:38 [employer] Vishal Hui MD [facility] CPT-06492 Level 3 Est. Patient 14:43:55 [employer] Vishal Hui MD [facility] CPT-29955 Level 3 Est. Patient 15:26:33 [employer] Sahara Rodriguez MD PhD [facility] CPT-44757 Level 3 Est. Patient 10:32:14 [employer] Vishal Hui MD [facility] CPT-95193 Level 3 Est. Patient 15:12:52 [employer] Vishal Hui MD [facility] CPT-15723 Level 4 Est. Patient 09:19:27 CDT Vishal Hui MD [facility] CPT-62851 Level 3 Est. Patient 15:53:00 CDT Renzo Thornton [facility] CPT-15982 Level 3 Est. Patient 15:50:30 CDT Renzo Thornton [facility] CPT-86241 Level 3 Est. Patient 16:55:24 CDT Vishal Hui MD [facility] Procedures Code Procedure Name Date Entry Date Standard Description CPT-03334 UA Dip Auto (Floor Use Only) 11:36:47 CDT CPT-58928 Venipuncture Draw Fee 10:53:17 CDT CPT-32737 EKG Trac and Interp - XRAY USE ONLY 15:59:30 CDT 09/13 CPT-93596 Chest 1V Frontal - XRAY USE ONLY 15:59:30 CDT CPT-63832 Venipuncture Draw Fee 15:44:02 CDT CPT-84871 Venipuncture Draw Fee 08:41:12 CDT CPT-82729 Abd compl w upright - XRAY USE ONLY 10:27:59 CDT 06/28 CPT-89758 Smoking Cessation counseling 11:15:58 [employer] CPT-G0439 [facility] Annual Wellness Exam 09:30:58 [employer] CPT-35372 TSH - LAB USE ONLY 08:50:26 [employer] CPT-48137 CBC - LAB USE ONLY 08:50:26 [employer] CPT-48131 Venipuncture Draw Fee 08:50:26 [employer] CPT-11658 Abx/Therapy Injection 17:34:30 [employer] CPT-58395 Nexplanon Removal with Reinsertion 14:09:32 CDT CPT-J7307 Nexplanon (Implant) 14:09:32 CDT CPT-OV Office Visit 14:09:32 CDT CPT-50529 UA w micro - LAB USE ONLY 16:21:13 CDT CPT-18548 Wet Mount - LAB USE ONLY 16:21:13 CDT CPT-84609 First Vx - Ix admin for Medicare patients 14:37:47 CDT CPT-62180 Fluzone Preservative Free Intramuscular Suspension 14:37 :47 CDT CPT-04568 Abx/Therapy Injection 13:54:22 CDT CPT-71039 Abx/Therapy Injection 08:47:09 CDT CPT-29691 Abx/Therapy Injection 13:29:56 CDT CPT-97165 Abx/Therapy Injection 08:36:16 CDT CPT-95368 Wet Mount - LAB USE ONLY 17:44:58 CDT CPT-75309 UA w micro - LAB USE ONLY 17:44:58 CDT CPT-99157 CMP - LAB USE ONLY 17:44:58 CDT CPT-08104 Venipuncture Draw Fee 17:44:58 CDT CPT-36439 Cervical Min 4V - XRAY USE ONLY 09:01:40 CDT CPT-84802 Chest 2V Frontal and Lat - XRAY USE ONLY 11:06:31 CDT CPT-54506 EKG Trac and Interp - XRAY USE ONLY 11:31:43 CDT 08/26 CPT-J3420 Vitamin B12 1000mcg (Cyanocobalamin) 08:10:26 [employer] 04/12 CPT-14892 Abx/Therapy Injection 08:10:26 [employer] CPT-G0438 Initial Annual Wellness Exam 19:01:01 [employer] CPT-J3420 Vitamin B12 1000mcg (Cyanocobalamin) 16:57:46 CDT 08/14 CPT-61753 Recombivax HB Injection Suspension 5 MCG/0.5ML 08:37:50 [employer] CPT-05231 Immunization Single Admin 08:37:50 [employer] CPT-J3420 Vitamin B12 1000mcg (Cyanocobalamin) 08:32:16 [employer] 03/11 CPT-36245 Abx/Therapy Injection 08:32:16 [employer] CPT-96162 Chest 2V Frontal and Lat 11:46:38 [employer] CPT-01461 Venipuncture Draw Fee 09:12:45 [employer] CPT-J3420 Vitamin B12 1000mcg (Cyanocobalamin) 08:50:15 [employer] 02/08 CPT-80460 Abx/Therapy Injection 08:50:15 [employer] CPT-Cryo Cryotherapy 10:19:35 [employer] CPT-000 Give Appropriate Flu Vaccine 09:22:16 CDT CPT-J3420 Vitamin B12 1000mcg (Cyanocobalamin) 19:08:57 CDT 01/11 CPT-41202 Abx/Therapy Injection 19:08:57 CDT CPT-J3420 Vitamin B12 1000mcg (Cyanocobalamin) 08:19:08 CDT 12/11 CPT-31536 Abx/Therapy Injection 08:19:08 CDT CPT-J3420 Vitamin B12 1000mcg (Cyanocobalamin) 14:48:00 CDT 11/09 CPT-18574 Abx/Therapy Injection 14:47:59 CDT CPT-J3420 Vitamin B12 1000mcg (Cyanocobalamin) 08:34:04 CDT 10/09 CPT-44926 Abx/Therapy Injection 08:34:04 CDT CPT-J3420 Vitamin B12 1000mcg (Cyanocobalamin) 09:18:52 CDT 09/11 CPT-14799 Abx/Therapy Injection 09:18:52 CDT CPT-J3420 Vitamin B12 1000mcg (Cyanocobalamin) 08:35:44 CDT 09/04 CPT-65496 Abx/Therapy Injection 08:35:44 CDT CPT-84074 Immunization Single Admin 11:07:16 CDT CPT-22035 Hepatitis B adult IM 11:07:16 CDT CPT-J3420 Vitamin B12 1000mcg (Cyanocobalamin) 11:00:49 CDT 08/28 CPT-J1040 Depo Medrol 80 mg (Methyl Prednisolone Acetate) 11:00: 49 CDT CPT-09375 Abx/Therapy Injection 11:00:49 CDT CPT-J1040 Depo Medrol 80 mg (Methyl Prednisolone Acetate) 09:16: 23 CDT CPT-J3420 Vitamin B12 1000mcg (Cyanocobalamin) 08:27:05 CDT 08/20 CPT-74752 Abx/Therapy Injection 08:27:05 CDT CPT-46657 Recombivax HB Injection Suspension 5 MCG/0.5ML 10:00:41 CDT CPT-28170 Administration single or combination vaccine inc oral 10 :00:41 CDT CPT-11818 Sono transvag pelvis non OB uterus ovaries cervix 16:36: 57 CDT CPT-97526 LS spine comp w obliq 09:50:55 [employer] CPT-23714 Abd compl w upright 09:50:55 [employer] CPT-J1100 Decadron 4mg (Dexamethasone) 15:51:24 [employer] CPT-J1030 Depo Medrol 40 mg (Methyl Prednisolone Acetate) 15:51: 24 [employer] CPT-46241 Abx/Therapy Injection 15:51:24 [employer] CPT-J1100 Decadron 4mg (Dexamethasone) 15:26:33 [employer] CPT-J1030 Depo Medrol 40 mg (Methyl Prednisolone Acetate) 15:26: 33 [employer] CPT-61407 Sono retroperitoneal complete kidneys and bladder 17:15: 30 CDT CPT-11577 Abd compl w upright 16:09:25 CDT CPT-J1100 Decadron 8mg (Dexamethasone) 17:07:57 CDT CPT-69180 Abx/Therapy Injection 17:07:57 CDT CPT-J1100 Decadron 8mg (Dexamethasone) 16:55:24 CDT CPT-20025 Chest 2V Frontal and Lat 16:32:44 CDT
--- OUTSIDE RECORDS SUMMARY | 2016-11-04 22:23 | XMS REPORT | Clinical Summary ---
Author Author Admin, E Organization [employer] Address Unknown Phone Unavailable Allergies, Adverse Reactions, [...] ORAL CHEW 2 daily po PROBIOTIC PRODUCT 17976043194 Active Jillina Frazell [employer] Active IBUPROFEN 600 MG TAB 1 po TID PRN IBUPROFEN 88892628413 Active Jillina Frazell [employer] Active BACTRIM DS 800-160 MG TAB 1 tab by mouth twice daily TRIMETHOPRIM-SULFAMETHOXAZOLE 14105932257 Active Neeraj Collins MD Active BACTRIM DS 800-160 MG TABS 1 po BID x 7 days SULFAMETHOXAZOLE-TRIMETHOPRIM 13820192097 No Longer Active Vishal Hui MD Active CHANTIX STARTING MONTH EARNEST 0.5 MG X 11 & 1 MG X 42 TABS 0.5mg daily for 3 days , then 0.5mg BID for 4 days, then 1mg BID VARENICLINE TARTRATE 15909282559 No Longer Active TAMARA Gray Active METOPROLOL TARTRATE 50 MG TAB 1 po bid METOPROLOL TARTRATE 71221769533 Active Vishal Hui MD Active TRAZODONE HCL 100 MG TAB take 1 at bedtime TRAZODONE HCL 32105798280 Active Vishal Hui MD Active AMLODIPINE BESYLATE 5 MG TABS 1 tablet by mouth daily AMLODIPINE BESYLATE 99563723812 Active Vishal Hui MD Active VERAPAMIL HCL CR 120 MG TAB CR 1 po bid VERAPAMIL HCL 90417852311 No Longer Active Vishal Hui MD Active METOPROLOL SUCCINATE 50 MG TB24 1 tablet by mouth daily METOPROLOL SUCCINATE 60636812851 No Longer Active Vishal Hui MD Active TRAMADOL HCL 50 MG TABS 1-2 po TID PRN Pain TRAMADOL HCL 05320929550 Active Vishal Hui MD Active SAPHRIS 5 MG SUBL 1 po bid ASENAPINE MALEATE 82291460870 Active Vishal Hui MD Active SAPHRIS 10 MG SUBL 1 tab po bid ASENAPINE MALEATE 22612868182 No Longer Active Vishal Hui MD Active LISINOPRIL 20 MG TABS 1 tab po qd LISINOPRIL 61709594299 No Longer Active Vishal Hui MD Active BENADRYL 25 MG CAP 2 po tid prn anxiety DIPHENHYDRAMINE HCL 20232811773 Active Vishal Hui MD Active LATUDA 80 MG TABS Take one by mouth daily LURASIDONE HCL 56128279422 Active Vishal Hui MD Active LATUDA 20 MG TABS Take one by mouth daily LURASIDONE HCL 85147675065 No Longer Active Vishal Hui MD Active TRAZODONE HCL 50 MG TABS 1/2 tab po qd prn for anxiety TRAZODONE HCL 79213626382 No Longer Active Vishal Hui MD Active PIROXICAM 20 MG CAPS 1 cap po qd PRN Pain PIROXICAM 27947004456 Active Vishal Hui MD Active OMEPRAZOLE 20 MG TBEC 1 po q a.m. 30min prior to first food intake OMEPRAZOLE 61161813335 Active Vishal Hui MD Active RANITIDINE HCL 150 MG CAPS 1 twice a day RANITIDINE HCL 48532600679 Active Vishal Hui MD Active MULTIVITAMINS CAPS Take one by mouth daily MULTIPLE VITAMIN 53084141419 Active Vishal Hui MD Active MELATONIN 3 MG CAPS 2 po q hs MELATONIN 81724356539 Active Vishal Hui MD Active PROZAC 20 MG CAP Take one by mouth daily FLUOXETINE HCL 35277596611 Active Vishal Hui MD Active LINZESS 290 MCG CAPS Take one by mouth daily LINACLOTIDE 78445109409 Active Vishal Hui MD Active SAPHRIS 5 MG SUBL 1 tab po qd ASENAPINE MALEATE 17906096013 No Longer Active Vishal Hui MD Active ZALEPLON 10 MG CAPS 1 cap po every other night ZALEPLON 46617587215 No Longer Active Vishal Hui MD Active LYRICA 50 MG CAPS 1 tab po TID PREGABALIN 33933387199 No Longer Active Vishal Hui MD Active LORATADINE 10 MG TABS 1 tab po qd LORATADINE 72430601541 No Longer Active Vishal Hui MD Active VERAPAMIL HCL ER 180 MG CR-TABS 1 tab po bid VERAPAMIL HCL 55690271296 No Longer Active Vishal Hui MD Active MIRALAX POWD 1 capfull once daily POLYETHYLENE GLYCOL 3350 39146123244 No Longer Active Vishal Hui MD Active PREDNISONE 20 MG TABS 1 tab po qd PREDNISONE 79078466416 No Longer Active Renzo Thornton DO Active LEVOFLOXACIN 500 MG TABS 1 tab po qd LEVOFLOXACIN 10511706532 No Longer Active Renzo Thornton DO Active BUSPIRONE HCL 15 MG TABS 1 tab po TID BUSPIRONE HCL 12081155817 No Longer Active Renzo Thornton DO Active BENZTROPINE MESYLATE 1 MG TABS 1 tab po qd BENZTROPINE MESYLATE 94302068304 No Longer Active Renzo Thornton DO Active ATENOLOL 25 MG TABS 1 tab po qd ATENOLOL 71656994598 No Longer Active Renzo Thornton DO Active ESCITALOPRAM OXALATE 20 MG TABS 1 tab po qd ESCITALOPRAM OXALATE 98148144378 No Longer Active Renzo Thornton DO Active ADVAIR DISKUS 250-50 MCG/DOSE AEPB 1 puff BID FLUTICASONE-SALMETEROL 15210373700 No Longer Active Renzo Thornton DO Active PREDNISONE 20 MG TAB 2 tabs daily for 3 days, 1 tab daily for 3 days, 1/2 tab daily for 2 days PREDNISONE 63691845103 No Longer Active Vishal Hui MD Active CEFDINIR 300 MG CAPS by mouth twice a day CEFDINIR 36245034266 No Longer Active Vishal Hui MD Active LANSOPRAZOLE 30 MG CPDR 1 cap po qd LANSOPRAZOLE 39472756687 No Longer Active Vishal Hui MD Active TOPAMAX 25 MG TABS 1 tab po bid TOPIRAMATE 11505950883 Active Vishal Hui MD Active MINIPRESS 2 MG CAPS 1 cap po at night PRAZOSIN HCL 44719652252 Active Vishal Hui MD Active BACLOFEN 20 MG TABS 1 tab po tid BACLOFEN 40406545988 Active Vishal Hui MD Active ADVAIR DISKUS 250-50 MCG/DOSE AEPB 1 puff BID ADVAIR DISKUS 250-50 MCG/DOSE AEPB FLUTICASONE-SALMETEROL Inactive ESCITALOPRAM OXALATE 20 MG TABS 1 tab po qd ESCITALOPRAM OXALATE 20 MG TABS 507274 ESCITALOPRAM OXALATE Inactive ATENOLOL 25 MG TABS 1 tab po qd ATENOLOL 25 MG TABS 013057 ATENOLOL Inactive BENZTROPINE MESYLATE 1 MG TABS 1 tab po qd BENZTROPINE MESYLATE 1 MG TABS 119344 BENZTROPINE MESYLATE Inactive BUSPIRONE HCL 15 MG TABS 1 tab po TID BUSPIRONE HCL 15 MG TABS 311927 BUSPIRONE HCL Inactive LEVOFLOXACIN 500 MG TABS 1 tab po qd LEVOFLOXACIN 500 MG TABS 758436 LEVOFLOXACIN Inactive PREDNISONE 20 MG TABS 1 tab po qd PREDNISONE 20 MG TABS 555812 PREDNISONE Inactive MIRALAX POWD 1 capfull once daily MIRALAX POWD 045442 POLYETHYLENE GLYCOL 3350 Inactive VERAPAMIL HCL ER 180 MG CR-TABS 1 tab po bid VERAPAMIL HCL ER 180 MG CR-TABS VERAPAMIL HCL Inactive LORATADINE 10 MG TABS 1 tab po qd LORATADINE 10 MG TABS 648895 LORATADINE Inactive LYRICA 50 MG CAPS 1 tab po TID LYRICA 50 MG CAPS PREGABALIN Inactive ZALEPLON 10 MG CAPS 1 cap po every other night ZALEPLON 10 MG CAPS 466733 ZALEPLON Inactive SAPHRIS 5 MG SUBL 1 tab po qd SAPHRIS 5 MG SUBL ASENAPINE MALEATE Inactive TRAZODONE HCL 50 MG TABS 1/2 tab po qd prn for anxiety TRAZODONE HCL 50 MG TABS 876674 TRAZODONE HCL Inactive LATUDA 20 MG TABS Take one by mouth daily LATUDA 20 MG TABS LURASIDONE HCL Inactive LISINOPRIL 20 MG TABS 1 tab po qd LISINOPRIL 20 MG TABS 738112 LISINOPRIL Inactive SAPHRIS 10 MG SUBL 1 [...] twice a day CEFDINIR 300 MG CAPS 239460 CEFDINIR Inactive PREDNISONE 20 MG TAB 2 tabs daily for 3 days, 1 tab daily for 3 days, 1/2 tab daily for 2 days PREDNISONE 20 MG TAB 264973 PREDNISONE Inactive BACTRIM DS 800-160 MG TABS [...] Panel - Chemistry sodium, serum 141 mmol/L 101-439 2172 potassium, serum 4.3 mmol/L 3.5-5.2 chloride, serum [...] Panel - Chemistry sodium, serum 139 mmol/L 724-824 1724/12/31 potassium, serum 4.8 mmol/L 3.5-5.2 chloride, serum 106 mmol/L 98-107 carbon dioxide, venous blood 24.3 mmol/L 21.0-32.0 blood glucose 90 mg/dL 65-110 urea nitrogen, blood 16 mg/dL 7-18 creatinine, serum 1.00 mg/dL 0.60-1.30 alanine aminotransferase (SGPT), serum 41 U/L 12-78 aspartate aminotransferase (SGOT), serum 17 U/L 15-37 calcium, serum 8.6 mg/dL 8.5-10.1 bilirubin, serum, total 0.30 mg/dL 0.00-1.00 cholesterol, serum 108 mg/dL 722-169 1644/12/31 triglyceride, serum, fasting 120 mg/dL 30-200 HDL [...] Negative Negative Lab Report: [facility]ADIP W/MICRO, AUTO, [facility] [place] - Chemistry protein, total urine random Negative [...] 5.0-8.5 Encounters Code Encounter Date Provider Facility CPT-11717 Level 3 Est. Patient 14:49:50 CDT Vishal Hui MD [facility] CPT-18868 Level 4 Est. Patient 18:41:46 CDT Neeraj Collins MD [facility] CPT-12551 Level 4 Est. Patient 09:18:38 [employer] Vishal Hui MD [facility] CPT-64683 Level 3 Est. Patient 14:43:55 INFORMATION MANAGEMENT SPECIALIST Vishal Hui MD [facility] CPT-92178 Level 3 Est. Patient 15:26:33 INFORMATION MANAGEMENT SPECIALIST Sahara Rodriguez MD PhD [facility] CPT-74603 Level 3 Est. Patient 10:32:14 INFORMATION MANAGEMENT SPECIALIST Vishal Hui MD [facility] CPT-45354 Level 3 Est. Patient 15:12:52 INFORMATION MANAGEMENT SPECIALIST Vishal Hui MD [facility] CPT-86185 Level 4 Est. Patient 09:19:27 CDT Vishal Hui MD [facility] CPT-80781 Level 3 Est. Patient 15:53:00 CDT Renzo Thornton [facility] CPT-70076 Level 3 Est. Patient 15:50:30 CDT Renzo Thornton [facility] CPT-21208 Level 3 Est. Patient 16:55:24 CDT Vishal Hui MD [facility] Procedures Code Procedure Name Date Entry Date Standard Description CPT-34605 Sono transvag pelvis non OB uterus ovaries cervix 16:36: 57 CDT CPT-12983 LS spine comp w obliq 09:50:55 INFORMATION MANAGEMENT SPECIALIST CPT-23314 Abd compl w upright 09:50:55 INFORMATION MANAGEMENT SPECIALIST CPT-J1100 Decadron 4mg (Dexamethasone) 15:51:24 INFORMATION MANAGEMENT SPECIALIST CPT-J1030 Depo Medrol 40 mg (Methyl Prednisolone Acetate) 15:51: 24 INFORMATION MANAGEMENT SPECIALIST CPT-69327 Abx/Therapy Injection 15:51:24 INFORMATION MANAGEMENT SPECIALIST CPT-J1100 Decadron 4mg (Dexamethasone) 15:26:33 INFORMATION MANAGEMENT SPECIALIST CPT-J1030 Depo Medrol 40 mg (Methyl Prednisolone Acetate) 15:26: 33 INFORMATION MANAGEMENT SPECIALIST CPT-42220 Sono retroperitoneal complete kidneys and bladder 17:15: 30 CDT CPT-24857 Abd compl w upright 16:09:25 CDT CPT-J1100 Decadron 8mg (Dexamethasone) 17:07:57 CDT CPT-21155 Abx/Therapy Injection 17:07:57 CDT CPT-J1100 Decadron 8mg (Dexamethasone) 16:55:24 CDT CPT-20887 Chest 2V Frontal and Lat 16:32:44 CDT
--- OUTSIDE RECORDS SUMMARY | 2016-11-04 22:24 | XMS REPORT ---
Author Author [employer] [facility] Medical Staff Organization [facility] Address [address] [place], [place] [id number] Phone [phone] Summary purpose TRANSITION OF CARE AUTO GENERATION [...] Relevant diagnostic tests and/or laboratory data RESULTS Reference Lab (Sendout) 22:00 Result Normal Range Units D-Dimer < 100 0-400 ng/ml Cardiac 22:00 Result Normal Range Units Troponin I < [...] patient history should be interpreted with caution. History of procedures No procedures recorded for [...]
--- OUTSIDE RECORDS SUMMARY | 2016-11-04 22:24 | XMS REPORT | Clinical Summary ---
Author Author Admin, E Organization [employer] Address Unknown Phone Unavailable Allergies, Adverse Reactions, [...] ORAL CHEW 2 daily po PROBIOTIC PRODUCT 60324868871 Active Jillina Frazell [employer] MARKER Active IBUPROFEN 600 MG TAB 1 po TID PRN IBUPROFEN 24252504897 Active Jillina Frazell [employer] MARKER Active BACTRIM DS 800-160 MG TAB 1 tab by mouth twice daily TRIMETHOPRIM-SULFAMETHOXAZOLE 18035300892 Active Neeraj Collins MD Active BACTRIM DS 800-160 MG TABS 1 po BID x 7 days SULFAMETHOXAZOLE-TRIMETHOPRIM 10531899035 No Longer Active Vishal Hui MD Active CHANTIX STARTING MONTH EARNEST 0.5 MG X 11 & 1 MG X 42 TABS 0.5mg daily for 3 days , then 0.5mg BID for 4 days, then 1mg BID VARENICLINE TARTRATE 73931489125 No Longer Active TAMARA Gray Active METOPROLOL TARTRATE 50 MG TAB 1 po bid METOPROLOL TARTRATE 62582444360 Active Vishal Hui MD Active TRAZODONE HCL 100 MG TAB take 1 at bedtime TRAZODONE HCL 21201316915 Active Vishal Hui MD Active AMLODIPINE BESYLATE 5 MG TABS 1 tablet by mouth daily AMLODIPINE BESYLATE 77022058295 Active Vishal Hui MD Active VERAPAMIL HCL CR 120 MG TAB CR 1 po bid VERAPAMIL HCL 98847633854 No Longer Active Vishal Hui MD Active METOPROLOL SUCCINATE 50 MG TB24 1 tablet by mouth daily METOPROLOL SUCCINATE 79618460128 No Longer Active Vishal Hui MD Active TRAMADOL HCL 50 MG TABS 1-2 po TID PRN Pain TRAMADOL HCL 14983583846 Active Vishal Hui MD Active SAPHRIS 5 MG SUBL 1 po bid ASENAPINE MALEATE 42028311404 Active Vishal Hui MD Active SAPHRIS 10 MG SUBL 1 tab po bid ASENAPINE MALEATE 77327655272 No Longer Active Vishal Hui MD Active LISINOPRIL 20 MG TABS 1 tab po qd LISINOPRIL 74867785308 No Longer Active Vishal Hui MD Active BENADRYL 25 MG CAP 2 po tid prn anxiety DIPHENHYDRAMINE HCL 97361376281 Active Vishal Hui MD Active LATUDA 80 MG TABS Take one by mouth daily LURASIDONE HCL 40967691537 Active Vishal Hui MD Active LATUDA 20 MG TABS Take one by mouth daily LURASIDONE HCL 14244637134 No Longer Active Vishal Hui MD Active TRAZODONE HCL 50 MG TABS 1/2 tab po qd prn for anxiety TRAZODONE HCL 72768605416 No Longer Active Vishal Hui MD Active PIROXICAM 20 MG CAPS 1 cap po qd PRN Pain PIROXICAM 37137866979 Active Vishal Hui MD Active OMEPRAZOLE 20 MG TBEC 1 po q a.m. 30min prior to first food intake OMEPRAZOLE 62285464669 Active Vishal Hui MD Active RANITIDINE HCL 150 MG CAPS 1 twice a day RANITIDINE HCL 50001540150 Active Vishal Hui MD Active MULTIVITAMINS CAPS Take one by mouth daily MULTIPLE VITAMIN 69009824561 Active Vishal Hui MD Active MELATONIN 3 MG CAPS 2 po q hs MELATONIN 67379332232 Active Vishal Hui MD Active PROZAC 20 MG CAP Take one by mouth daily FLUOXETINE HCL 27215473157 Active Vishal Hui MD Active LINZESS 290 MCG CAPS Take one by mouth daily LINACLOTIDE 59880988799 Active Vishal Hui MD Active SAPHRIS 5 MG SUBL 1 tab po qd ASENAPINE MALEATE 06819169727 No Longer Active Vishal Hui MD Active ZALEPLON 10 MG CAPS 1 cap po every other night ZALEPLON 54557168411 No Longer Active Vishal Hui MD Active LYRICA 50 MG CAPS 1 tab po TID PREGABALIN 21706870345 No Longer Active Vishal Hui MD Active LORATADINE 10 MG TABS 1 tab po qd LORATADINE 61106692475 No Longer Active Vishal Hui MD Active VERAPAMIL HCL ER 180 MG CR-TABS 1 tab po bid VERAPAMIL HCL 53328359502 No Longer Active Vishal Hui MD Active MIRALAX POWD 1 capfull once daily POLYETHYLENE GLYCOL 3350 63829842903 No Longer Active Vishal Hui MD Active PREDNISONE 20 MG TABS 1 tab po qd PREDNISONE 81170802519 No Longer Active Renzo Thornton DO Active LEVOFLOXACIN 500 MG TABS 1 tab po qd LEVOFLOXACIN 30963646725 No Longer Active Renzo Thornton DO Active BUSPIRONE HCL 15 MG TABS 1 tab po TID BUSPIRONE HCL 54829840416 No Longer Active Renzo Thornton DO Active BENZTROPINE MESYLATE 1 MG TABS 1 tab po qd BENZTROPINE MESYLATE 48792687196 No Longer Active Renzo Thornton DO Active ATENOLOL 25 MG TABS 1 tab po qd ATENOLOL 89711796058 No Longer Active Renzo Thornton DO Active ESCITALOPRAM OXALATE 20 MG TABS 1 tab po qd ESCITALOPRAM OXALATE 60158290217 No Longer Active Renzo Thornton DO Active ADVAIR DISKUS 250-50 MCG/DOSE AEPB 1 puff BID FLUTICASONE-SALMETEROL 67107651250 No Longer Active Renzo Thornton DO Active PREDNISONE 20 MG TAB 2 tabs daily for 3 days, 1 tab daily for 3 days, 1/2 tab daily for 2 days PREDNISONE 43024244113 No Longer Active Vishal Hui MD Active CEFDINIR 300 MG CAPS by mouth twice a day CEFDINIR 53079556804 No Longer Active Vishal Hui MD Active LANSOPRAZOLE 30 MG CPDR 1 cap po qd LANSOPRAZOLE 53374876274 No Longer Active Vishal Hui MD Active TOPAMAX 25 MG TABS 1 tab po bid TOPIRAMATE 00544935575 Active Vishal Hui MD Active MINIPRESS 2 MG CAPS 1 cap po at night PRAZOSIN HCL 79300623096 Active Vishal Hui MD Active BACLOFEN 20 MG TABS 1 tab po tid BACLOFEN 07412197563 Active Vishal Hui MD Active ADVAIR DISKUS 250-50 MCG/DOSE AEPB 1 puff BID ADVAIR DISKUS 250-50 MCG/DOSE AEPB FLUTICASONE-SALMETEROL Inactive ESCITALOPRAM OXALATE 20 MG TABS 1 tab po qd ESCITALOPRAM OXALATE 20 MG TABS 741329 ESCITALOPRAM OXALATE Inactive ATENOLOL 25 MG TABS 1 tab po qd ATENOLOL 25 MG TABS 506251 ATENOLOL Inactive BENZTROPINE MESYLATE 1 MG TABS 1 tab po qd BENZTROPINE MESYLATE 1 MG TABS 693404 BENZTROPINE MESYLATE Inactive BUSPIRONE HCL 15 MG TABS 1 tab po TID BUSPIRONE HCL 15 MG TABS 297646 BUSPIRONE HCL Inactive LEVOFLOXACIN 500 MG TABS 1 tab po qd LEVOFLOXACIN 500 MG TABS 220344 LEVOFLOXACIN Inactive PREDNISONE 20 MG TABS 1 tab po qd PREDNISONE 20 MG TABS 371989 PREDNISONE Inactive MIRALAX POWD 1 capfull once daily MIRALAX POWD 267469 POLYETHYLENE GLYCOL 3350 Inactive VERAPAMIL HCL ER 180 MG CR-TABS 1 tab po bid VERAPAMIL HCL ER 180 MG CR-TABS VERAPAMIL HCL Inactive LORATADINE 10 MG TABS 1 tab po qd LORATADINE 10 MG TABS 791149 LORATADINE Inactive LYRICA 50 MG CAPS 1 tab po TID LYRICA 50 MG CAPS PREGABALIN Inactive ZALEPLON 10 MG CAPS 1 cap po every other night ZALEPLON 10 MG CAPS 987308 ZALEPLON Inactive SAPHRIS 5 MG SUBL 1 tab po qd SAPHRIS 5 MG SUBL ASENAPINE MALEATE Inactive TRAZODONE HCL 50 MG TABS 1/2 tab po qd prn for anxiety TRAZODONE HCL 50 MG TABS 569236 TRAZODONE HCL Inactive LATUDA 20 MG TABS Take one by mouth daily LATUDA 20 MG TABS LURASIDONE HCL Inactive LISINOPRIL 20 MG TABS 1 tab po qd LISINOPRIL 20 MG TABS 747180 LISINOPRIL Inactive SAPHRIS 10 MG SUBL 1 [...] twice a day CEFDINIR 300 MG CAPS 074629 CEFDINIR Inactive PREDNISONE 20 MG TAB 2 tabs daily for 3 days, 1 tab daily for 3 days, 1/2 tab daily for 2 days PREDNISONE 20 MG TAB 625331 PREDNISONE Inactive BACTRIM DS 800-160 MG TABS [...] Panel - Chemistry sodium, serum 141 mmol/L [phone] potassium, serum 4.3 mmol/L 3.5-5.2 chloride, serum [...] Panel - Chemistry sodium, serum 139 mmol/L 813-060 9843/12/31 creatinine, serum 1.00 mg/dL 0.60-1.30 alanine aminotransferase (SGPT), serum 41 U/L 12-78 aspartate aminotransferase (SGOT), serum 17 U/L 15-37 calcium, serum 8.6 mg/dL 8.5-10.1 bilirubin, serum, total 0.30 mg/dL 0.00-1.00 cholesterol, serum 108 mg/dL 432-088 9232/12/31 triglyceride, serum, fasting 120 mg/dL 30-200 HDL [...] [facility] - Chemistry human chorionic gonadotropin, urine, qualitative [...] urine Negative Negative Lab Report: Varicella-Zoater Inga IgG,IgM/59020, HEP Be Antibody/556, RUB ... - Serology rubella antibody, serum, IgG 2.88 Encounters Code Encounter Date Provider Facility CPT-28451 Level 3 Est. Patient 14:49:50 CDT Vishal Hui MD [facility] CPT-61388 Level 4 Est. Patient 18:41:46 CDT Neeraj Collins MD [facility] CPT-36227 Level 4 Est. Patient 09:18:38 PASSENGER SERVICE SUPERVISOR Vishal Hui MD [facility]-88931 Level 3 Est. Patient 14:43:55 PASSENGER SERVICE SUPERVISOR Vishal Hui MD [facility] CPT-68205 Level 3 Est. Patient 15:26:33 PASSENGER SERVICE SUPERVISOR Sahara Rodriguez MD PhD [facility]-60403 Level 3 Est. Patient 10:32:14 PASSENGER SERVICE SUPERVISOR Vishal Hui MD [facility] CPT-15943 Level 3 Est. Patient 15:12:52 PASSENGER SERVICE SUPERVISOR Vishal Hui MD [facility] CPT-89154 Level 4 Est. Patient 09:19:27 CDT Vishal Hui MD [facility] CPT-77970 Level 3 Est. Patient 15:53:00 CDT Renzo Thornton [facility] CPT-64911 Level 3 Est. Patient 15:50:30 CDT Renzo Thornton [facility] CPT-11060 Level 3 Est. Patient 16:55:24 CDT Vishal Hui MD [facility] Procedures Code Procedure Name Date Entry Date Standard Description CPT-47529 Sono transvag pelvis non OB uterus ovaries cervix 16:36: 57 CDT CPT-14614 LS spine comp w obliq 09:50:55 PASSENGER SERVICE SUPERVISOR CPT-66781 Abd compl w upright 09:50:55 PASSENGER SERVICE SUPERVISOR CPT-J1100 Decadron 4mg (Dexamethasone) 15:51:24 PASSENGER SERVICE SUPERVISOR CPT-J1030 Depo Medrol 40 mg (Methyl Prednisolone Acetate) 15:51: 24 PASSENGER SERVICE SUPERVISOR CPT-48025 Abx/Therapy Injection 15:51:24 PASSENGER SERVICE SUPERVISOR CPT-J1100 Decadron 4mg (Dexamethasone) 15:26:33 PASSENGER SERVICE SUPERVISOR CPT-J1030 Depo Medrol 40 mg (Methyl Prednisolone Acetate) 15:26: 33 PASSENGER SERVICE SUPERVISOR CPT-29915 Sono retroperitoneal complete kidneys and bladder 17:15: 30 CDT CPT-06484 Abd compl w upright 16:09:25 CDT CPT-J1100 Decadron 8mg (Dexamethasone) 17:07:57 CDT CPT-37667 Abx/Therapy Injection 17:07:57 CDT CPT-J1100 Decadron 8mg (Dexamethasone) 16:55:24 CDT CPT-25339 Chest 2V Frontal and Lat 16:32:44 CDT
--- OUTSIDE RECORDS SUMMARY | 2016-11-04 22:28 | XMS REPORT | Clinical Summary ---
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 Circulation Clerk well woman exam V72.31 Resolved Suzan Boo [...] Vishal Hui MD Nocturnal hypoxia ICD-799.02 Inactive uSzan Boo APRN Neck pain ICD-723.1 Inactive Vishal Hui MD Vaginal discharge ICD-623.5 Inactive Vishal Hui MD Abdominal pain, right lower quadrant ICD-789.03 Inactive Vishal Hui MD Calf pain, left ICD-729.5 Inactive Vishal Hui MD Asthma, acute ICD-493.92 Inactive Vishal Hui MD Upper respiratory infection ICD-465.9 Inactive Suzan Boo UROLOGY PHYSICIAN Other fracture of upper and lower end [...] Bronchitis, acute ICD-466.0 Inactive Ahmet Carbajal MD Library Circulation Clerk well woman exam ICD-V72.31 Inactive Suzan Rajeev UROLOGY PHYSICIAN Bronchitis, acute with mild bronchospasm ICD-466.0 Inactive Suzan Rajeev UROLOGY PHYSICIAN Tracheitis ICD-464.10 Inactive Suzan Boo UROLOGY PHYSICIAN Impetigo ICD-684 Inactive Suzan Boo UROLOGY PHYSICIAN Furuncle of buttock ICD-680.5 Inactive Suzan Boo UROLOGY PHYSICIAN Vaginal irritation ICD-623.9 Inactive Suzan Boo UROLOGY PHYSICIAN Scalding pain on urination ICD-788.1 Inactive Suzan Boo APRN Abdominal pain, right upper quadrant ICD-789.01 Inactive Suzan Boo UROLOGY PHYSICIAN Dark urine ICD-791.9 Inactive Suzan Boo APRN Preop exam ICD-V72.84 Inactive Suzan Rajeev WALTERSN Medication List Medication Instructions Start Date Stop Date Generic Name ND Status Provider Patient Instruction NYSTATIN [id number] UNIT/GM CREA apply three times a day to yeast rash NYSTATIN [id number] Active Suzan Boo APRN Active AMITIZA 24 MCG ORAL CAPS one capsule twice daily LUBIPROSTONE 91793115418 Active Suzan Boo APRN Active MIRALAX ORAL POWD 17GMS DAILY IN WATER POLYETHYLENE GLYCOL 3350 54231097009 No Longer Active Suzan Boo APRN Active LACTULOSE 10 GM/15ML ORAL SOLN 30mL oral BID for IBS-C LACTULOSE 64703562029 No Longer Active Suzan Boo APRN Active BACTRIM DS 800-160 MG TAB Take one (1) tablet by mouth twice a day for 5 days TRIMETHOPRIM-SULFAMETHOXAZOLE 98173610836 No Longer Active Suzan Boo APRN Active MUPIROCIN 2 % OINT apply twice a day MUPIROCIN 41816361879 No Longer Active Suzan Boo APRN Active BACTRIM DS 800-160 MG TABS 1 twice a day SULFAMETHOXAZOLE-TRIMETHOPRIM 32103050865 No Longer Active Suzan Boo APRN Active DIFLUCAN 150 MG TABS 1 by mouth for yeast FLUCONAZOLE 60663878598 No Longer Active Suzan Boo APRN Active LINZESS 290 MCG ORAL CAPS 1 tab 30 min prior to first meal each day. LINACLOTIDE 81262964234 No Longer Active Sheila Calderon LPN Active AMITIZA 8 MCG ORAL CAPS 1 tab BID LUBIPROSTONE 85001867385 No Longer Active Lynda Xiao WEB PRESS OPERATOR HELPER OFFSET Active TESSALON PERLES 100 MG CAPS 1 three times a day as needed for cough BENZONATATE 39275380220 No Longer Active Suzan Boo APRN Active BACTRIM DS 800-160 MG TABS 1 twice a day SULFAMETHOXAZOLE-TRIMETHOPRIM 84275618187 No Longer Active Suzan Boo APRN Active DIFLUCAN 150 MG TABS 1 by mouth for yeast FLUCONAZOLE 61185619102 No Longer Active Suzan Boo APRN Active EQ NICOTINE 21 MG/24HR TRANS PT24 Apply daily to stop smoking NICOTINE 10090300330 No Longer Active Suzan Boo APRN Active PREDNISONE 10 MG TABS 2 daily for 5 days then 1 daily for 5 days PREDNISONE 00161461630 No Longer Active Suzan Rajeev UROLOGY PHYSICIAN Active LEVAQUIN 500 MG TABS 1 daily for infection LEVOFLOXACIN 97091229653 No Longer Active Suzan Boo APRN Active TROPICAMIDE 0.5 % OPHTH SOLN 1 drop PRN eye spasms TROPICAMIDE 85841640670 No Longer Active Suzan Boo APRN Active PREDNISONE 20 MG TAB 1 tablet daily x 4 days PREDNISONE 70325576382 No Longer Active Suzan Boo APRN Active ACETAMINOPHEN-CODEINE 120-12 MG/5ML SOLN 5 ml by mouth every 4-6 hours if needed for cough ACETAMINOPHEN-CODEINE 25130739411 No Longer Active Suzan Boo APRN Active KEFLEX 500 MG CAP 1 po qid CEPHALEXIN 56868405716 No Longer Active Suzan Boo APRN Active FLOVENT HFA 110 MCG/ACT AERO 2 puffs inhaled b.i.d. FLUTICASONE PROPIONATE HFA 37781636664 Active Renzo Thornton DO Active RISPERDAL 4 MG ORAL TABS 1 tab at bedtime RISPERIDONE 31947317558 Active Samantha Rothman RMA Active ZOFRAN 4 MG TABS 1 po q6hr PRN Nausea ONDANSETRON HCL No Longer Active Suzan Boo APRN Active FLUTICASONE PROPIONATE 50 MCG/ACT SUSP 2 sprays each nostril daily before bed. FLUTICASONE PROPIONATE 88884854966 No Longer Active Suzan Boo APRN Active ASPIRIN 325 MG ORAL TABS 1 tab q.d ASPIRIN 10872507422 No Longer Active Suzan Boo APRN Active HALOPERIDOL 10 MG ORAL TABS 1 tab q.d HALOPERIDOL 76706488803 No Longer Active Suzan Boo APRN Active GUAIFENESIN-CODEINE 100-10 MG/5ML SYRP 5ml every 4 to 6 hours as needed for cough GUAIFENESIN-CODEINE 82216399579 No Longer Active Suzan Boo APRN Active ZITHROMAX Z-EARNEST 250 MG TABS 2 today and then 1 daily for 4 days AZITHROMYCIN 16366599236 No Longer Active Suzan Boo APRN Active CLONAZEPAM 1 MG ORAL TABS 1 twice a day and an additional 1 tablet every other day as needed for pseudoseizures or anxiety CLONAZEPAM 80878046544 Active Suzan Boo APRN Active HYDROCODONE-ACETAMINOPHEN 5-325 MG ORAL TABS 1 tab two times a day HYDROCODONE-ACETAMINOPHEN 87159057176 No Longer Active Ahmet Carbajal MD Active LAMICTAL 100 MG ORAL TABS 1 tab 2 times qd. LAMOTRIGINE 33454163879 Active Ahmet Carbajal MD Active PREDNISONE 20 MG TABS 2 daily for 5 days then 1 daily for 5 days PREDNISONE 64680642370 No Longer Active Ahmet Carbajal MD Active FLUTICASONE PROPIONATE 50 MCG/ACT SUSP 1 to 2 sprays each nostril daily for allergies FLUTICASONE PROPIONATE 83350021803 Active Tila Valenzuela Active BENADRYL 25 MG CAP 4 po at bedtime for insomnia DIPHENHYDRAMINE HCL 60388400054 No Longer Active Ahmet Carbajal MD Active ADVAIR DISKUS 250-50 MCG/DOSE INH AEPB 1 puff twice a day for asthma FLUTICASONE-SALMETEROL 34181481420 No Longer Active Ahmet Carbajal MD Active KLONOPIN 1 MG ORAL TABS 1 tab po TID CLONAZEPAM 79840246952 No Longer Active Ahmet Carbajal MD Active ABILIFY MAINTENA 400 MG IM SUSR 400mg injection every 26 days ARIPIPRAZOLE 49862929489 No Longer Active Ahmet Carbajal MD Active TRAMADOL HCL 50 MG TABS 1/2-1 tab TID PRN TRAMADOL HCL 92295375962 No Longer Active Ahmet Carbajal MD Active BACTRIM DS 800-160 MG TABS 1 twice a day SULFAMETHOXAZOLE- TRIMETHOPRIM 34584570602 No Longer Active Ahmet Carbajal MD Active PROAIR HFA 108 (90 BASE) MCG/ACT AERS 2 puffs four times a day as needed 2015 ALBUTEROL SULFATE 19803090429 Active Honey Hinton UROLOGY PHYSICIAN Active MONISTAT 7 COMBO PACK WOODROW 100 & 2 MG-% (9GM) VAG KIT 1 applicatorful per vagina q pm x 7 MICONAZOLE NITRATE 30663019242 No Longer Active Ahmet Carbajal MD Active FLAGYL 500 MG TAB 1 tablet by mouth bid METRONIDAZOLE 22095386216 No Longer Active Ahmet Carbajal MD Active OXYCODONE HCL ER 10 MG ORAL T12A 1/2 tab by mouth every 4 hours prn OXYCODONE HCL 67411466578 No Longer Active Ahmet Carbajal MD Active METHYLPREDNISOLONE 4 MG ORAL TABS po daily METHYLPREDNISOLONE 93707124932 No Longer Active Ahmet Carbajal MD Active LEVOFLOXACIN 500 MG ORAL TABS po daily LEVOFLOXACIN 59713523159 No Longer Active Ahmet Carbajal MD Active VIIBRYD 10 MG ORAL TABS Take 1 tablet once a day VILAZODONE HCL 01860065109 No Longer Active Ahmet Carbajal MD Active TOPAMAX 50 MG ORAL TABS 1 tab twice daily TOPIRAMATE 68160116883 No Longer Active Ahmet Carbajal MD Active DICLOFENAC SODIUM 50 MG TBEC 1 tablet by mouth four times daily PRN Pain 2015 DICLOFENAC SODIUM 23608790575 No Longer Active Ahmet Carbajal MD Active ADZENYS XR-ODT 6.3 MG ORAL TBED 1 tab po daily for ADHD AMPHETAMINE 68894536201 No Longer Active Ahmet Carbajal MD Active CHANTIX 1 MG TABS 1 twice a day to help quit smoking VARENICLINE TARTRATE 19643309857 No Longer Active Dipika Burgos MD Active CHANTIX STARTING MONTH EARNEST 0.5 MG X 11 & 1 MG X 42 TABS take as directed 2015 VARENICLINE TARTRATE 38875192602 No Longer Active Dipika Burgos MD Active TESSALON PERLES 100 MG CAP 1 to 2 tablets by mouth 3 times daily as needed for cough BENZONATATE 63633579486 No Longer Active Luigi Martínez APRN Active IMITREX 50 MG ORAL TABS 0.5 po x 1 PRN Headache. May repeat dose x 1 in 2 hours if needed SUMATRIPTAN SUCCINATE 52206692006 Active TAMARA Casey Active HYDROCODONE-ACETAMINOPHEN 5-325 MG TABS 1 to 2 four times a day as needed for pain use until can be seen by specialist HYDROCODONE- ACETAMINOPHEN 81778216178 No Longer Active Vishal Hui MD Active PROAIR HFA 108 (90 BASE) MCG/ACT AERS 2 puffs four times a day as needed 2015 ALBUTEROL SULFATE 09775087701 No Longer Active Vishal Hui MD Active PREDNISONE 20 MG TABS 2 daily for 5 days then 1 daily for 5 days PREDNISONE 39015083335 No Longer Active Vishal Hui MD Active ZITHROMAX Z-EARNEST 250 MG TABS 2 today and then 1 daily for 4 days AZITHROMYCIN 47959207963 No Longer Active Vishal Hui MD Active DICLOFENAC POTASSIUM TABS Take 1 tablet twice a day (pt. is not sure of the dose.) DICLOFENAC POTASSIUM TABS 59693102473 No Longer Active Vishal Hui MD Active VERAPAMIL HCL ER 120 MG ORAL CR-TABS Take 1 tablet by mouth twice a day. VERAPAMIL HCL 06298550077 Active Vishal Hui MD Active FLAGYL 500 MG TAB 1 tablet by mouth bid METRONIDAZOLE 35308888445 No Longer Active Vishal Hui MD Active VALIUM 5 MG TAB Take 1-2 tablets daily DIAZEPAM 79108340194 No Longer Active Fabiola Johnson APRN Active METOPROLOL TARTRATE 25 MG ORAL TABS 1/2 tablet twice daily for heart rate and blood pressure METOPROLOL TARTRATE 64516917408 No Longer Active Fabiola Johnson APRN Active MIRALAX PACK 1 po qd PRN Constipation POLYETHYLENE GLYCOL 3350 90360318249 No Longer Active Ahmet Carbajal MD Active MINIPRESS 2 MG CAPS 4 cap po at night PRAZOSIN HCL 93018420182 No Longer Active Ahmet Carbajal MD Active PIROXICAM 20 MG CAPS 1 cap po qd PRN Pain PIROXICAM 04628423309 No Longer Active Ahmet Carbajal MD Active TRAMADOL HCL 50 MG TABS 1-2 po TID PRN Pain TRAMADOL HCL 20793020735 No Longer Active Ahmet Carbajal MD Active METOPROLOL TARTRATE 50 MG TAB 1 po bid METOPROLOL TARTRATE 41351117312 No Longer Active Ahmet Carbajal MD Active ABILIFY 15 MG ORAL TABS 1 tab daily ARIPIPRAZOLE 14116345692 No Longer Active Ahmet Carbajal MD Active PROZAC 20 MG ORAL CAPS 1 tab daily FLUOXETINE HCL 39411886915 No Longer Active Ahmet Carbajal MD Active AMBIEN 5 MG ORAL TABS 1 tab at bedtime ZOLPIDEM TARTRATE 35019568483 No Longer Active Ahmet Carbajal MD Active PREDNISONE 20 MG TAB 2 tabs daily for 4 days, 1 tab daily for 4 days, 1/2 tab daily for 4 days PREDNISONE 15262294289 No Longer Active Ahmet Carbajal MD Active KEFLEX 500 MG CAP 1 po TID x 10 days CEPHALEXIN 88254559929 No Longer Active Vishal Hui MD Active SAPHRIS 5 MG SUBL 1 po bid ASENAPINE MALEATE 73670624735 No Longer Active Luigi Martínez APRN Active LATUDA 80 MG TABS Take one by mouth daily LURASIDONE HCL 90631315677 No Longer Active Jillina Fralebron NORIEGA Active AMLODIPINE BESYLATE 5 MG TABS 1 tablet by mouth daily AMLODIPINE BESYLATE 00854241863 No Longer Active Jillina Mauricio NORIEGA Active AMITRIPTYLINE HCL 100 MG TAB one at hs AMITRIPTYLINE HCL 45276497101 No Longer Active Vishal Hui MD Active TRAZODONE HCL 100 MG TAB take 1 at bedtime TRAZODONE HCL 55536102512 No Longer Active Vishal Hui MD Active VYVANSE 40 MG CAPS 1 daily, LISDEXAMFETAMINE DIMESYLATE 62469307442 No Longer Active Vishal Hui MD Active IBUPROFEN 600 MG TAB 1 po TID PRN IBUPROFEN 22720206118 No Longer Active Vishal Hui MD Active PROZAC 20 MG CAP Take one by mouth daily FLUOXETINE HCL 77501074575 No Longer Active Vishal Hui MD Active BACTRIM DS 800-160 MG TABS 1 pill by mouth twice daily SULFAMETHOXAZOLE-TRIMETHOPRIM 75532571076 No Longer Active Sahara Rodriguez MD PhD Active DIFLUCAN 150 MG TAB 1 tablet by mouth daily FLUCONAZOLE 86364303420 No Longer Active Vishal Hui MD Active TIZANIDINE HCL 4 MG TABS 1 po q6hr PRN Muscle Spasm/Back Pain TIZANIDINE HCL 08448737496 Active TAMARA Casey Active CLINDAMYCIN HCL 150 MG CAPS 1 four times a day CLINDAMYCIN HCL 88691720126 No Longer Active Neeraj Collins MD Active KEFLEX 500 MG ORAL CAPS 1 cap QID by mouth CEPHALEXIN 03884405577 No Longer Active Neeraj Collins MD Active DIFLUCAN 150 MG TABS 1 pill every other day x 2 doses FLUCONAZOLE 93797626448 No Longer Active Sahara Rodriguez MD PhD Active MELATONIN 3 MG CAPS 2 po q hs MELATONIN 06302972234 No Longer Active Sahara Rodriguez MD PhD Active MULTIVITAMINS CAPS Take one by mouth daily MULTIPLE VITAMIN 86520677065 No Longer Active Sahara Rodriguez MD PhD Active BACTRIM DS 800-160 MG TAB 1 tab by mouth twice daily TRIMETHOPRIM-SULFAMETHOXAZOLE 20958753275 No Longer Active Sahara Rodriguez MD PhD Active [facility] PROBIOTIC ORAL CHEW 2 daily po PROBIOTIC PRODUCT 87637830369 No Longer Active Sahara Rodriguez MD PhD Active BACTRIM DS 800-160 MG TABS 1 po BID x 7 days SULFAMETHOXAZOLE-TRIMETHOPRIM 65445569567 No Longer Active Vishal Hui MD Active CHANTIX STARTING MONTH EARNEST 0.5 MG X 11 & 1 MG X 42 TABS 0.5mg daily for 3 days , then 0.5mg BID for 4 days, then 1mg BID VARENICLINE TARTRATE 09503559093 No Longer Active TAMARA Gray Active VERAPAMIL HCL CR 120 MG TAB CR 1 po bid VERAPAMIL HCL 83531927579 No Longer Active Vishal Hui MD Active METOPROLOL SUCCINATE 50 MG TB24 1 tablet by mouth daily METOPROLOL SUCCINATE 07261971340 No Longer Active Vishal Hui MD Active SAPHRIS 10 MG SUBL 1 tab po bid ASENAPINE MALEATE 48777016851 No Longer Active Vishal Hui MD Active LISINOPRIL 20 MG TABS 1 tab po qd LISINOPRIL 43262078878 No Longer Active Vishal Hui MD Active LATUDA 20 MG TABS Take one by mouth daily LURASIDONE HCL 67305212466 No Longer Active Vishal Hui MD Active TRAZODONE HCL 50 MG TABS 1/2 tab po qd prn for anxiety TRAZODONE HCL 34271843094 No Longer Active Vishal Hui MD Active OMEPRAZOLE 20 MG TBEC 1 po q a.m. 30min prior to first food intake OMEPRAZOLE 63310081938 Active TAMARA Casey Active RANITIDINE HCL 150 MG CAPS 1 twice a day RANITIDINE HCL 31173814198 Active Lynda Madl WEB PRESS OPERATOR HELPER OFFSET Active LINZESS 290 MCG CAPS Take one by mouth daily LINACLOTIDE 59323404685 No Longer Active Vishal Hui MD Active SAPHRIS 5 MG SUBL 1 tab po qd ASENAPINE MALEATE 98258974860 No Longer Active Vishal Hui MD Active ZALEPLON 10 MG CAPS 1 cap po every other night ZALEPLON 60734483791 No Longer Active Vishal Hui MD Active LYRICA 50 MG CAPS 1 tab po TID PREGABALIN 70054829805 No Longer Active Vishal Hui MD Active LORATADINE 10 MG TABS 1 tab po qd LORATADINE 42400104850 No Longer Active Vishal Hui MD Active VERAPAMIL HCL ER 180 MG CR-TABS 1 tab po bid VERAPAMIL HCL 07580120141 No Longer Active Vishal Hui MD Active MIRALAX POWD 1 capfull once daily POLYETHYLENE GLYCOL 3350 01639831658 No Longer Active Vishal Hui MD Active PREDNISONE 20 MG TABS 1 tab po qd PREDNISONE 22457859301 No Longer Active Renzo Thornton DO Active LEVOFLOXACIN 500 MG TABS 1 tab po qd LEVOFLOXACIN 32498263593 No Longer Active Renzo Thornton DO Active BUSPIRONE HCL 15 MG TABS 1 tab po TID BUSPIRONE HCL 77275095644 No Longer Active Renzo Thornton DO Active BENZTROPINE MESYLATE 1 MG TABS 1 tab po qd BENZTROPINE MESYLATE 74457788686 No Longer Active Renzo Thornton DO Active ATENOLOL 25 MG TABS 1 tab po qd ATENOLOL 90843185235 No Longer Active Renzo Thornton DO Active ESCITALOPRAM OXALATE 20 MG TABS 1 tab po qd ESCITALOPRAM OXALATE 46308837394 No Longer Active Renzo Thornton DO Active ADVAIR DISKUS 250-50 MCG/DOSE AEPB 1 puff BID FLUTICASONE-SALMETEROL 67425719570 No Longer Active Renzo Thornton DO Active PREDNISONE 20 MG TAB 2 tabs daily for 3 days, 1 tab daily for 3 days, 1/2 tab daily for 2 days PREDNISONE 85862285644 No Longer Active Vishal Hui MD Active CEFDINIR 300 MG CAPS by mouth twice a day CEFDINIR 69178617911 No Longer Active Vishal Hui MD Active LANSOPRAZOLE 30 MG CPDR 1 cap po qd LANSOPRAZOLE 91276291476 No Longer Active Vishal Hui MD Active BACLOFEN 20 MG TABS 1 tab po tid BACLOFEN 71540510169 No Longer Active Vishal Hui MD Active ADVAIR DISKUS 250-50 MCG/DOSE AEPB 1 puff BID ADVAIR DISKUS 250-50 MCG/DOSE AEPB FLUTICASONE-SALMETEROL Inactive ESCITALOPRAM OXALATE 20 MG TABS 1 tab po qd ESCITALOPRAM OXALATE 20 MG TABS 438614 ESCITALOPRAM OXALATE Inactive ATENOLOL 25 MG TABS 1 tab po qd ATENOLOL 25 MG TABS 812830 ATENOLOL Inactive BENZTROPINE MESYLATE 1 MG TABS 1 tab po qd BENZTROPINE MESYLATE 1 MG TABS 139055 BENZTROPINE MESYLATE Inactive BUSPIRONE HCL 15 MG TABS 1 tab po TID BUSPIRONE HCL 15 MG TABS 396226 BUSPIRONE HCL Inactive LEVOFLOXACIN 500 MG TABS 1 tab po qd LEVOFLOXACIN 500 MG TABS 401488 LEVOFLOXACIN Inactive PREDNISONE 20 MG TABS 1 tab po qd PREDNISONE 20 MG TABS 932547 PREDNISONE Inactive MIRALAX POWD 1 capfull once daily MIRALAX POWD 331697 POLYETHYLENE GLYCOL 3350 Inactive VERAPAMIL HCL ER 180 MG CR-TABS 1 tab po bid VERAPAMIL HCL ER 180 MG CR-TABS VERAPAMIL HCL Inactive LORATADINE 10 MG TABS 1 tab po qd LORATADINE 10 MG TABS 271852 LORATADINE Inactive LYRICA 50 MG CAPS 1 tab po TID LYRICA 50 MG CAPS PREGABALIN Inactive ZALEPLON 10 MG CAPS 1 cap po every other night ZALEPLON 10 MG CAPS 241841 ZALEPLON Inactive SAPHRIS 5 MG SUBL 1 tab po qd SAPHRIS 5 MG SUBL ASENAPINE MALEATE Inactive TRAZODONE HCL 50 MG TABS 1/2 tab po qd prn for anxiety TRAZODONE HCL 50 MG TABS 102891 TRAZODONE HCL Inactive LATUDA 20 MG TABS Take one by mouth daily LATUDA 20 MG TABS LURASIDONE HCL Inactive LISINOPRIL 20 MG TABS 1 tab po qd LISINOPRIL 20 MG TABS 472436 LISINOPRIL Inactive SAPHRIS 10 MG SUBL 1 [...] twice daily BACTRIM DS 800-160 MG TAB 930040 TRIMETHOPRIM-SULFAMETHOXAZOLE Inactive MULTIVITAMINS CAPS Take one by mouth daily MULTIVITAMINS CAPS MULTIPLE VITAMIN Inactive MELATONIN 3 MG CAPS 2 po q hs MELATONIN 3 MG CAPS 841576 MELATONIN Inactive KEFLEX 500 MG ORAL CAPS 1 cap QID by mouth KEFLEX 500 MG ORAL CAPS 915970 CEPHALEXIN Inactive CLINDAMYCIN HCL 150 MG CAPS 1 four times a day CLINDAMYCIN HCL 150 MG CAPS 433662 CLINDAMYCIN HCL Inactive DIFLUCAN 150 MG TAB 1 tablet by mouth daily DIFLUCAN 150 MG TAB 534963 FLUCONAZOLE Inactive PROZAC 20 MG CAP Take one by mouth daily PROZAC 20 MG CAP 016389 FLUOXETINE HCL Inactive IBUPROFEN 600 MG TAB 1 po TID PRN IBUPROFEN 600 MG TAB 285684 IBUPROFEN Inactive VYVANSE 40 MG CAPS 1 daily, VYVANSE 40 MG CAPS LISDEXAMFETAMINE DIMESYLATE Inactive TRAZODONE HCL 100 MG TAB take 1 at bedtime TRAZODONE HCL 100 MG TAB 379194 TRAZODONE HCL Inactive AMITRIPTYLINE HCL 100 MG TAB one at hs AMITRIPTYLINE HCL 100 MG TAB 015160 AMITRIPTYLINE HCL Inactive AMLODIPINE BESYLATE 5 MG TABS 1 tablet by mouth daily AMLODIPINE BESYLATE 5 MG TABS 188613 AMLODIPINE BESYLATE Inactive LATUDA 80 MG TABS Take one by mouth daily LATUDA 80 MG TABS LURASIDONE HCL Inactive SAPHRIS 5 MG SUBL 1 po bid SAPHRIS 5 MG SUBL ASENAPINE MALEATE Inactive PREDNISONE 20 MG TAB 2 tabs daily for 4 days, 1 tab daily for 4 days, 1/2 tab daily for 4 days PREDNISONE 20 MG TAB 388752 PREDNISONE Inactive AMBIEN 5 MG ORAL TABS 1 tab at bedtime AMBIEN 5 MG ORAL TABS 073163 ZOLPIDEM TARTRATE Inactive PROZAC 20 MG ORAL CAPS 1 tab daily PROZAC 20 MG ORAL CAPS 284536 FLUOXETINE HCL Inactive ABILIFY 15 MG ORAL TABS 1 tab daily ABILIFY 15 MG ORAL TABS 069136 ARIPIPRAZOLE Inactive METOPROLOL TARTRATE 50 MG TAB 1 po bid METOPROLOL TARTRATE 50 MG TAB 347949 METOPROLOL TARTRATE Inactive TRAMADOL HCL 50 MG TABS 1-2 po TID PRN Pain TRAMADOL HCL 50 MG TABS 728702 TRAMADOL HCL Inactive PIROXICAM 20 MG CAPS 1 cap po qd PRN Pain PIROXICAM 20 MG CAPS 558086 PIROXICAM Inactive MINIPRESS 2 MG CAPS 4 cap po at night MINIPRESS 2 MG CAPS 660671 PRAZOSIN HCL Inactive MIRALAX PACK 1 po qd PRN Constipation MIRALAX PACK 947229 POLYETHYLENE GLYCOL 3350 Inactive METOPROLOL TARTRATE 25 MG ORAL TABS 1/2 tablet twice daily for heart rate and blood pressure METOPROLOL TARTRATE 25 MG ORAL TABS 985356 METOPROLOL TARTRATE Inactive VALIUM 5 MG TAB Take 1-2 tablets daily VALIUM 5 MG TAB 543790 DIAZEPAM Inactive FLAGYL 500 MG TAB 1 tablet by mouth bid FLAGYL 500 MG TAB 028088 METRONIDAZOLE Inactive DICLOFENAC POTASSIUM TABS Take 1 tablet twice a day (pt. is not sure of the dose.) DICLOFENAC POTASSIUM TABS DICLOFENAC POTASSIUM TABS Inactive ZITHROMAX Z-EARNEST 250 MG TABS 2 today and then 1 daily for 4 days ZITHROMAX Z-EARNEST 250 MG TABS 0998782 AZITHROMYCIN Inactive PREDNISONE 20 MG TABS 2 daily for 5 days then 1 daily for 5 days PREDNISONE 20 MG TABS 276602 PREDNISONE Inactive PROAIR HFA 108 (90 BASE) MCG/ACT AERS 2 puffs four times a day as needed 2015 PROAIR HFA 108 (90 BASE) MCG/ACT AERS ALBUTEROL SULFATE Inactive HYDROCODONE-ACETAMINOPHEN 5-325 MG TABS 1 to 2 four times a day as needed for pain use until can be seen by specialist HYDROCODONE- ACETAMINOPHEN 5-325 MG TABS 760375 HYDROCODONE-ACETAMINOPHEN Inactive TESSALON PERLES 100 MG CAP 1 to 2 tablets by mouth 3 times daily as needed for cough TESSALON PERLES 100 MG CAP 472413 BENZONATATE Inactive CHANTIX STARTING MONTH EARNEST 0.5 [...] Pain 2015 DICLOFENAC SODIUM 50 MG TBEC 900002 DICLOFENAC SODIUM Inactive TOPAMAX 50 MG ORAL TABS 1 tab twice daily TOPAMAX 50 MG ORAL TABS 710002 TOPIRAMATE Inactive VIIBRYD 10 MG ORAL TABS Take 1 tablet once a day VIIBRYD 10 MG ORAL TABS VILAZODONE HCL Inactive LEVOFLOXACIN 500 MG ORAL TABS po daily LEVOFLOXACIN 500 MG ORAL TABS 709813 LEVOFLOXACIN Inactive METHYLPREDNISOLONE 4 MG ORAL TABS po daily METHYLPREDNISOLONE 4 MG ORAL TABS 629424 METHYLPREDNISOLONE Inactive OXYCODONE HCL ER 10 MG ORAL T12A 1/2 tab by mouth every 4 hours prn OXYCODONE HCL ER 10 MG ORAL T12A OXYCODONE HCL Inactive FLAGYL 500 MG TAB 1 tablet by mouth bid FLAGYL 500 MG TAB 000854 METRONIDAZOLE Inactive MONISTAT 7 COMBO PACK WOODROW 100 & 2 MG-% (9GM) VAG KIT 1 applicatorful per vagina q pm x 7 MONISTAT 7 COMBO PACK WOODROW 100 & 2 MG-% (9GM) VAG KIT MICONAZOLE NITRATE Inactive BACTRIM DS 800-160 MG TABS 1 twice a day BACTRIM DS 800-160 MG TABS 234440 SULFAMETHOXAZOLE-TRIMETHOPRIM Inactive TRAMADOL HCL 50 MG TABS 1/2-1 tab TID PRN TRAMADOL HCL 50 MG TABS 487641 TRAMADOL HCL Inactive ABILIFY MAINTENA 400 MG IM SUSR 400mg injection every 26 days ABILIFY MAINTENA 400 MG IM SUSR ARIPIPRAZOLE Inactive KLONOPIN 1 MG ORAL TABS 1 tab po TID KLONOPIN 1 MG ORAL TABS 510140 CLONAZEPAM Inactive ADVAIR DISKUS 250-50 MCG/DOSE INH AEPB 1 puff twice a day for asthma ADVAIR DISKUS 250-50 MCG/DOSE INH AEPB FLUTICASONE- SALMETEROL Inactive BENADRYL 25 MG CAP 4 po at bedtime for insomnia BENADRYL 25 MG CAP DIPHENHYDRAMINE HCL Inactive PREDNISONE 20 MG TABS 2 daily for 5 days then 1 daily for 5 days PREDNISONE 20 MG TABS 023957 PREDNISONE Inactive HYDROCODONE-ACETAMINOPHEN 5-325 MG ORAL TABS 1 tab two times a day HYDROCODONE-ACETAMINOPHEN 5-325 MG ORAL TABS 738642 HYDROCODONE-ACETAMINOPHEN Inactive ZITHROMAX Z-EARNEST 250 MG TABS 2 today and then 1 daily for 4 days ZITHROMAX Z-EARNEST 250 MG TABS 9388304 AZITHROMYCIN Inactive GUAIFENESIN-CODEINE 100-10 MG/5ML SYRP 5ml every 4 to 6 hours as needed for cough GUAIFENESIN-CODEINE 100-10 MG/5ML SYRP 442911 GUAIFENESIN-CODEINE Inactive HALOPERIDOL 10 MG ORAL TABS 1 tab q.d HALOPERIDOL 10 MG ORAL TABS 557163 HALOPERIDOL Inactive ASPIRIN 325 MG ORAL TABS 1 tab q.d ASPIRIN 325 MG ORAL TABS [id number] ASPIRIN Inactive FLUTICASONE PROPIONATE 50 MCG/ACT SUSP 2 sprays each nostril daily before bed. FLUTICASONE PROPIONATE 50 MCG/ACT SUSP [id number] FLUTICASONE PROPIONATE Inactive ZOFRAN 4 MG TABS 1 po q6hr PRN Nausea ZOFRAN 4 MG TABS 832260 ONDANSETRON HCL Inactive KEFLEX 500 MG CAP 1 po qid KEFLEX 500 MG CAP 440773 CEPHALEXIN Inactive ACETAMINOPHEN-CODEINE 120-12 MG/5ML SOLN 5 ml by mouth every 4-6 hours if needed for cough ACETAMINOPHEN-CODEINE 120-12 MG/5ML SOLN 601809 ACETAMINOPHEN-CODEINE Inactive PREDNISONE 20 MG TAB 1 tablet daily x 4 days PREDNISONE 20 MG TAB 434409 PREDNISONE Inactive TROPICAMIDE 0.5 % OPHTH SOLN 1 drop PRN eye spasms TROPICAMIDE 0.5 % OPHTH SOLN 339826 TROPICAMIDE Inactive LEVAQUIN 500 MG TABS 1 daily for infection LEVAQUIN 500 MG TABS 292411 LEVOFLOXACIN Inactive PREDNISONE 10 MG TABS 2 daily for 5 days then 1 daily for 5 days PREDNISONE 10 MG TABS 333640 PREDNISONE Inactive EQ NICOTINE 21 MG/24HR TRANS [...] for cough TESSALON PERLES 100 MG CAPS 575973 BENZONATATE Inactive AMITIZA 8 MCG ORAL CAPS [...] twice a day MUPIROCIN 2 % OINT 640264 MUPIROCIN Inactive BACTRIM DS 800-160 MG TAB Take one (1) tablet by mouth twice a day for 5 days BACTRIM DS 800-160 MG TAB [id number] TRIMETHOPRIM- SULFAMETHOXAZOLE Inactive LACTULOSE 10 GM/15ML ORAL SOLN 30mL oral BID for IBS-C LACTULOSE 10 GM/15ML ORAL SOLN 343630 LACTULOSE Inactive MIRALAX ORAL POWD 17GMS DAILY IN WATER MIRALAX ORAL POWD 996372 POLYETHYLENE GLYCOL 3350 Inactive CEFDINIR 300 MG CAPS by mouth twice a day CEFDINIR 300 MG CAPS 883622 CEFDINIR Inactive PREDNISONE 20 MG TAB 2 tabs daily for 3 days, 1 tab daily for 3 days, 1/2 tab daily for 2 days PREDNISONE 20 MG TAB 625661 PREDNISONE Inactive BACTRIM DS 800-160 MG TABS 1 po BID x 7 days BACTRIM DS 800-160 MG TABS 19820521 SULFAMETHOXAZOLE-TRIMETHOPRIM Inactive DIFLUCAN 150 MG TABS 1 pill every other day x 2 doses DIFLUCAN 150 MG TABS 255237 FLUCONAZOLE Inactive BACTRIM DS 800-160 MG TABS 1 pill by mouth twice daily BACTRIM DS 800-160 MG TABS 19820521 SULFAMETHOXAZOLE-TRIMETHOPRIM Inactive KEFLEX 500 MG CAP 1 po TID x 10 days KEFLEX 500 MG CAP 719840 CEPHALEXIN Inactive Advance Directives Directive Description Start [...] % 11.0-15.0 platelet count 443 THOUSAND/UL 10*3/mm3 609-561 9360/03/01 mean platelet volume 8.2 fL 7.5-12.5 leukocyte [...] % 11.0-15.0 platelet count 349 THOUSAND/UL 10*3/mm3 768-542 8149/04/12 mean platelet volume 8.4 fL 7.5-12.5 Lab [...] 369 10^3/MM^3 10*3/mm3 142-424 Lab Report: Chlamydia/GC APTIMA/77161 - Lab chlamydia DNA probe NOT DETECTED NOT DETECTED Lab Report: Chlamydia/GC APTIMA/16597 - Microbiology Neisseria gonorrhoeae DNA probe NOT DETECTED NOT DETECTED Lab Report: Chlamydia/GC APTIMA/57358, Urinalysis, Complete, with Reflex ... - Lab chlamydia DNA probe NOT DETECTED NOT DETECTED Lab Report: Chlamydia/GC APTIMA/50494, Urinalysis, Complete, with Reflex ... - Microbiology Neisseria gonorrhoeae DNA probe NOT DETECTED NOT DETECTED Lab Report: Chlamydia/GC APTIMA/62585, Urinalysis, Complete, with Reflex ... - Urinalysis microalbumin/total urine volume 2 mg/L Units converted. See lab report for original value. microalbumin/creatinine ratio, urine 9 MCG/MG CREAT mg/L <30 Lab Report: Comp. Metabolic Panel - Chemistry sodium, serum 140 mmol/L [phone]/08/08 carbon dioxide, venous blood 33.7 mmol/L 21.0-32.0 potassium, serum 5.0 mmol/L 3.5-5.2 chloride, serum 103 mmol/L 98-107 blood glucose 80 mg/dL 65-110 urea nitrogen, blood 13 mg/dL 7-18 creatinine, serum 0.88 mg/dL 0.55-1.30 alanine aminotransferase (SGPT), serum 54 U/L 12-78 aspartate aminotransferase (SGOT), serum 29 U/L 15-37 calcium, serum 9.7 mg/dL 8.5-10.1 bilirubin, serum, total 0.30 mg/dL 0.00-1.00 sodium, serum 140 mmol/L 285-223 1203/06/28 carbon dioxide, venous blood 23.8 mmol/L 21.0-32.0 [...] 5.0-8.5 Encounters Code Encounter Date Provider Facility CPT-42328 Level 3 Est. Patient 11:08:[address] [facility] [place] CPT-20224 Level 3 Est. Patient 15:55:20 CDT Suzan [facility] CPT-00573 Level 4 Est. Patient 10:49:[address] [facility] [place] CPT-76852 Level 3 Est. Patient 10:00:25 CDT Suzan Boo [facility] CPT-15572 Level 3 Est. Patient 10:29:30 CDT Suzan Boo [facility] CPT-77577 Level 3 Est. Patient 11:04:38 CDT Renzo Barajas [facility] CPT-09040 Level 3 Est. Patient 11:15:58 HARDBOARD COATING MACHINE OPERATOR Renzo Barajas [facility] CPT-72966 Level 3 Est. Patient 15:28:23 HARDBOARD COATING MACHINE OPERATOR Suzan Boo [facility] CPT-49035 Level 4 Est. Patient 10:20:54 HARDBOARD COATING MACHINE OPERATOR Suzan Boo [facility] CPT-21039 Level 3 Est. Patient 11:47:37 HARDBOARD COATING MACHINE OPERATOR Ahmet Carbajal MD [facility] CPT-95090 Level 3 Est. Patient 10:40:11 HARDBOARD COATING MACHINE OPERATOR Ahmet Carbajal MD [facility] CPT-16420 Level 3 Est. Patient 15:07:06 HARDBOARD COATING MACHINE OPERATOR Neeraj Collins MD [facility] CPT-76957 Level 4 Est. Patient 14:45:00 HARDBOARD COATING MACHINE OPERATOR Ahmet Carbajal MD [facility] CPT-28341 Level 3 Est. Patient 13:59:59 CDT Luigi Martínez [facility] CPT-52828 Level 3 Est. Patient 18:18:53 CDT Neeraj Collins MD [facility] CPT-08710 Level 3 Est. Patient 15:50:44 CDT Vishal Hui MD [facility] CPT-88020 Level 3 Est. Patient 11:36:17 CDT Ahmet Carbajal MD [facility] CPT-91708 Level 3 Est. Patient 13:29:16 CDT Vishal Hui MD [facility] CPT-92443 Level 3 Est. Patient 14:27:52 CDT Neeraj Collins MD [facility] CPT-34458 Level 3 Est. Patient 08:56:03 CDT Luigi Martínez [facility] CPT-94310 Level 4 Est. Patient 12:11:48 CDT Fabiola Johnson [facility] CPT-60960 Level 3 New Patient 16:53:37 CDT Albert Caldera MD [facility] CPT-21470 Level 3 Est. Patient 11:25:49 CDT Renzo Thornton DO [facility] CPT-54178 Level 3 Est. Patient 15:22:01 CDT Ahmet Carbajal MD [facility] CPT-75068 Level 4 Est. Patient 09:00:51 HARDBOARD COATING MACHINE OPERATOR Vishal Hui MD [facility] CPT-71586 Level 3 Est. Patient 11:37:33 HARDBOARD COATING MACHINE OPERATOR Vishal Hui MD [facility] CPT-95278 Level 3 Est. Patient 08:41:09 HARDBOARD COATING MACHINE OPERATOR Vishal Hui MD [facility] CPT-76625 Level 4 Est. Patient 10:19:35 HARDBOARD COATING MACHINE OPERATOR Vishal Hui MD [facility] CPT-08834 Level 3 Est. Patient 13:35:45 CDT Vishal Hui MD [facility] CPT-57401 Level 4 Est. Patient 10:08:37 CDT Vishal Hui MD [facility] CPT-49021 Level 3 Est. Patient 11:22:10 CDT Vishal Hui MD [facility] CPT-48770 Level 3 Est. Patient 11:03:32 CDT Sahara Rodriguez MD PhD [facility] CPT-72965 Level 3 Est. Patient 09:41:35 CDT Vishal Hui MD [facility] CPT-32261 Level 3 Est. Patient 12:00:41 CDT Neeraj Collins MD [facility] CPT-51345 Level 3 Est. Patient 09:16:24 CDT Vishal Hui MD [facility] CPT-28665 Level 4 Est. Patient 13:59:09 CDT Neeraj Collins MD [facility] CPT-05835 Level 3 Est. Patient 15:19:43 CDT Renzo Thornton [facility] CPT-09768 Level 3 Est. Patient 18:10:26 CDT Sahara Rodriguez MD [facility] CPT-41501 Level 3 Est. Patient 14:49:50 CDT Vishal Hui MD [facility] CPT-49565 Level 4 Est. Patient 18:41:46 CDT Neeraj Collins MD [facility] CPT-01055 Level 4 Est. Patient 09:18:38 HARDBOARD COATING MACHINE OPERATOR Vishal Hui MD [facility] CPT-49195 Level 3 Est. Patient 14:43:55 HARDBOARD COATING MACHINE OPERATOR Vishal Hui MD [facility] CPT-82108 Level 3 Est. Patient 15:26:33 HARDBOARD COATING MACHINE OPERATOR Sahara Rodriguez MD [facility] CPT-57309 Level 3 Est. Patient 10:32:14 HARDBOARD COATING MACHINE OPERATOR Vishal Hui MD [facility] CPT-35122 Level 3 Est. Patient 15:12:52 HARDBOARD COATING MACHINE OPERATOR Vishal Hui MD [facility] CPT-19771 Level 4 Est. Patient 09:19:27 CDT Vishal Hui MD [facility] CPT-31823 Level 3 Est. Patient 15:53:00 CDT Renzo Thornton [facility] CPT-43542 Level 3 Est. Patient 15:50:30 CDT Renzo Thornton [facility] CPT-73877 Level 3 Est. Patient 16:55:24 CDT Vishal Hui MD [facility] Procedures Code Procedure Name Date Entry Date Standard Description CPT-52497 EKG Trac and Interp - XRAY USE ONLY 15:59:30 CDT 09/13 CPT-36788 Chest 1V Frontal - XRAY USE ONLY 15:59:30 CDT CPT-68154 Venipuncture Draw Fee 15:44:02 CDT CPT-52283 Venipuncture Draw Fee 08:41:12 CDT CPT-82114 Abd compl w upright - XRAY USE ONLY 10:27:59 CDT 06/28 CPT-67595 Smoking Cessation counseling 11:15:58 HARDBOARD COATING MACHINE OPERATOR CPT-G0439 [facility] Annual Wellness Exam 09:30:58 HARDBOARD COATING MACHINE OPERATOR CPT-88696 TSH - LAB USE ONLY 08:50:26 HARDBOARD COATING MACHINE OPERATOR CPT-95159 CBC - LAB USE ONLY 08:50:26 HARDBOARD COATING MACHINE OPERATOR CPT-86107 Venipuncture Draw Fee 08:50:26 HARDBOARD COATING MACHINE OPERATOR CPT-69717 Abx/Therapy Injection 17:34:30 HARDBOARD COATING MACHINE OPERATOR CPT-22618 Nexplanon Removal with Reinsertion 14:09:32 CDT CPT-J7307 Nexplanon (Implant) 14:09:32 CDT CPT-OV Office Visit 14:09:32 CDT CPT-14389 UA w micro - LAB USE ONLY 16:21:13 CDT CPT-68026 Wet Mount - LAB USE ONLY 16:21:13 CDT CPT-34049 First Vx - Ix admin for Medicare patients 14:37:47 CDT CPT-24687 Fluzone Preservative Free Intramuscular Suspension 14:37 :47 CDT CPT-64441 Abx/Therapy Injection 13:54:22 CDT CPT-04935 Abx/Therapy Injection 08:47:09 CDT CPT-40478 Abx/Therapy Injection 13:29:56 CDT CPT-23044 Abx/Therapy Injection 08:36:16 CDT CPT-38818 Wet Mount - LAB USE ONLY 17:44:58 CDT CPT-92869 UA w micro - LAB USE ONLY 17:44:58 CDT CPT-57528 CMP - LAB USE ONLY 17:44:58 CDT CPT-09271 Venipuncture Draw Fee 17:44:58 CDT CPT-70865 Cervical Min 4V - XRAY USE ONLY 09:01:40 CDT CPT-92421 Chest 2V Frontal and Lat - XRAY USE ONLY 11:06:31 CDT CPT-11508 EKG Trac and Interp - XRAY USE ONLY 11:31:43 CDT 08/26 CPT-J3420 Vitamin B12 1000mcg (Cyanocobalamin) 08:10:26 HARDBOARD COATING MACHINE OPERATOR 04/12 CPT-09129 Abx/Therapy Injection 08:10:26 HARDBOARD COATING MACHINE OPERATOR CPT-G0438 Initial Annual Wellness Exam 19:01:01 HARDBOARD COATING MACHINE OPERATOR CPT-J3420 Vitamin B12 1000mcg (Cyanocobalamin) 16:57:46 CDT 08/14 CPT-16289 Recombivax HB Injection Suspension 5 MCG/0.5ML 08:37:50 HARDBOARD COATING MACHINE OPERATOR CPT-19500 Immunization Single Admin 08:37:50 HARDBOARD COATING MACHINE OPERATOR CPT-J3420 Vitamin B12 1000mcg (Cyanocobalamin) 08:32:16 HARDBOARD COATING MACHINE OPERATOR 03/11 CPT-85632 Abx/Therapy Injection 08:32:16 HARDBOARD COATING MACHINE OPERATOR CPT-18728 Chest 2V Frontal and Lat 11:46:38 HARDBOARD COATING MACHINE OPERATOR CPT-04439 Venipuncture Draw Fee 09:12:45 HARDBOARD COATING MACHINE OPERATOR CPT-J3420 Vitamin B12 1000mcg (Cyanocobalamin) 08:50:15 HARDBOARD COATING MACHINE OPERATOR 02/08 CPT-07581 Abx/Therapy Injection 08:50:15 HARDBOARD COATING MACHINE OPERATOR CPT-Cryo Cryotherapy 10:19:35 HARDBOARD COATING MACHINE OPERATOR CPT-000 Give Appropriate Flu Vaccine 09:22:16 CDT CPT-J3420 Vitamin B12 1000mcg (Cyanocobalamin) 19:08:57 CDT 01/11 CPT-92333 Abx/Therapy Injection 19:08:57 CDT CPT-J3420 Vitamin B12 1000mcg (Cyanocobalamin) 08:19:08 CDT 12/11 CPT-84169 Abx/Therapy Injection 08:19:08 CDT CPT-J3420 Vitamin B12 1000mcg (Cyanocobalamin) 14:48:00 CDT 11/09 CPT-16910 Abx/Therapy Injection 14:47:59 CDT CPT-J3420 Vitamin B12 1000mcg (Cyanocobalamin) 08:34:04 CDT 10/09 CPT-49681 Abx/Therapy Injection 08:34:04 CDT CPT-J3420 Vitamin B12 1000mcg (Cyanocobalamin) 09:18:52 CDT 09/11 CPT-54251 Abx/Therapy Injection 09:18:52 CDT CPT-J3420 Vitamin B12 1000mcg (Cyanocobalamin) 08:35:44 CDT 09/04 CPT-76827 Abx/Therapy Injection 08:35:44 CDT CPT-86642 Immunization Single Admin 11:07:16 CDT CPT-95801 Hepatitis B adult IM 11:07:16 CDT CPT-J3420 Vitamin B12 1000mcg (Cyanocobalamin) 11:00:49 CDT 08/28 CPT-J1040 Depo Medrol 80 mg (Methyl Prednisolone Acetate) 11:00: 49 CDT CPT-88261 Abx/Therapy Injection 11:00:49 CDT CPT-J1040 Depo Medrol 80 mg (Methyl Prednisolone Acetate) 09:16: 23 CDT CPT-J3420 Vitamin B12 1000mcg (Cyanocobalamin) 08:27:05 CDT 08/20 CPT-95861 Abx/Therapy Injection 08:27:05 CDT CPT-64339 Recombivax HB Injection Suspension 5 MCG/0.5ML 10:00:41 CDT CPT-07262 Administration single or combination vaccine inc oral 10 :00:41 CDT CPT-32029 Sono transvag pelvis non OB uterus ovaries cervix 16:36: 57 CDT CPT-98110 LS spine comp w obliq 09:50:55 HARDBOARD COATING MACHINE OPERATOR CPT-90152 Abd compl w upright 09:50:55 HARDBOARD COATING MACHINE OPERATOR CPT-J1100 Decadron 4mg (Dexamethasone) 15:51:24 HARDBOARD COATING MACHINE OPERATOR CPT-J1030 Depo Medrol 40 mg (Methyl Prednisolone Acetate) 15:51: 24 HARDBOARD COATING MACHINE OPERATOR CPT-31836 Abx/Therapy Injection 15:51:24 HARDBOARD COATING MACHINE OPERATOR CPT-J1100 Decadron 4mg (Dexamethasone) 15:26:33 HARDBOARD COATING MACHINE OPERATOR CPT-J1030 Depo Medrol 40 mg (Methyl Prednisolone Acetate) 15:26: 33 HARDBOARD COATING MACHINE OPERATOR CPT-10676 Sono retroperitoneal complete kidneys and bladder 17:15: 30 CDT CPT-39662 Abd compl w upright 16:09:25 CDT CPT-J1100 Decadron 8mg (Dexamethasone) 17:07:57 CDT CPT-12197 Abx/Therapy Injection 17:07:57 CDT CPT-J1100 Decadron 8mg (Dexamethasone) 16:55:24 CDT CPT-19556 Chest 2V Frontal and Lat 16:32:44 CDT
--- OUTSIDE RECORDS SUMMARY | 2016-11-04 22:31 | XMS REPORT | Clinical Summary ---
Author Author Admin, QIE Organization [facility] Address Unknown Phone Unavailable Allergies, Adverse Reactions, [...] MD Unspecified personality disorder Leukocytosis 288.60 Resolved iVshal Hui MD Leukocytosis, unspecified UTI 599.0 Resolved Vishal Hui MD Urinary tract infection, site not specified Headache, atypical 784.0 Active Luigi Martínez FRAME NAILER Headache Elevated blood glucose 790.29 Resolved Vishal Hui MD Other abnormal glucose Polyarthralgia 719.49 Active Vishal Hui MD Pain in joint involving multiple sites Pneumonia, organism unspecified ICD-486 Inactive Vishal Hui [...] 1/2 tab daily for 4 days PREDNISONE 59034748535 Active Vishal Hui MD Active IMITREX 50 MG ORAL TABS 1/2 tab every 6 hours prn SUMATRIPTAN SUCCINATE 41770384818 Active Jillina Mauricio WALTERSN Active AMBIEN 5 MG ORAL TABS 1 tab at bedtime ZOLPIDEM TARTRATE 12015270839 Active Jillina Fradwightl FRAME NAILER Active PROZAC 20 MG ORAL CAPS 1 tab daily FLUOXETINE HCL 61057571920 Active Jillina Frazell FRAME NAILER Active ABILIFY 15 MG ORAL TABS 1 tab daily ARIPIPRAZOLE 98572475221 Active Jillina Frazell FRAME NAILER Active MINIPRESS 2 MG CAPS 4 cap po at night PRAZOSIN HCL 41717534628 Active Jillina Frazell FRAME NAILER Active TOPAMAX 50 MG ORAL TABS 1 tab twice daily TOPIRAMATE 61283118539 Active Jillina Fradwightl FRAME NAILER Active SAPHRIS 5 MG SUBL 1 po bid ASENAPINE MALEATE 15841634692 No Longer Active Pacollina Mauricio WALTERSN Active LATUDA 80 MG TABS Take one by mouth daily LURASIDONE HCL 07538316714 No Longer Active Jillina Fralebron WALTERSN Active AMLODIPINE BESYLATE 5 MG TABS 1 tablet by mouth daily AMLODIPINE BESYLATE 19046364903 No Longer Active Tataina Mauricio WALTERSN Active AMITRIPTYLINE HCL 100 MG TAB one at hs AMITRIPTYLINE HCL 79076046829 No Longer Active Vishal Hui MD Active TRAZODONE HCL 100 MG TAB take 1 at bedtime TRAZODONE HCL 97955394514 No Longer Active Vishal Hui MD Active VYVANSE 40 MG CAPS 1 daily, LISDEXAMFETAMINE DIMESYLATE 89584118070 No Longer Active Vishal Hui MD Active IBUPROFEN 600 MG TAB 1 po TID PRN IBUPROFEN 09722036180 No Longer Active Vishal Hui MD Active MIRALAX PACK 1 po qd PRN Constipation POLYETHYLENE GLYCOL 3350 91160352422 Active Vishal Hui MD Active PROZAC 20 MG CAP Take one by mouth daily FLUOXETINE HCL 07037720485 No Longer Active Vishal Hui MD Active ZOFRAN 4 MG TABS 1 po q6hr PRN Nausea ONDANSETRON HCL Active Vishal Hui MD Active BACTRIM DS 800-160 MG TABS 1 pill by mouth twice daily SULFAMETHOXAZOLE-TRIMETHOPRIM 68152365175 No Longer Active Sahara Rodriguez MD PhD Active DIFLUCAN 150 MG TAB 1 tablet by mouth daily FLUCONAZOLE 75226452516 No Longer Active Vishal Hui MD Active TIZANIDINE HCL 4 MG TABS 1 po q6hr PRN Muscle Spasm/Back Pain TIZANIDINE HCL 07127033365 Active Luigi Martínez APRN Active CLINDAMYCIN HCL 150 MG CAPS 1 four times a day CLINDAMYCIN HCL 50618674051 No Longer Active Neeraj Collins MD Active KEFLEX 500 MG ORAL CAPS 1 cap QID by mouth CEPHALEXIN 11929301760 No Longer Active Neeraj Collins MD Active DIFLUCAN 150 MG TABS 1 pill every other day x 2 doses FLUCONAZOLE 29871373223 No Longer Active Sahara Rodriguez MD PhD Active MELATONIN 3 MG CAPS 2 po q hs MELATONIN 76404338320 No Longer Active Sahara Rodriguez MD PhD Active MULTIVITAMINS CAPS Take one by mouth daily MULTIPLE VITAMIN 41476537346 No Longer Active Sahara Rodriguez MD PhD Active BACTRIM DS 800-160 MG TAB 1 tab by mouth twice daily TRIMETHOPRIM-SULFAMETHOXAZOLE 13408700307 No Longer Active Sahara Rodriguez MD PhD Active [facility] PROBIOTIC ORAL CHEW 2 daily po PROBIOTIC PRODUCT 61275767138 No Longer Active Sahara Rodriguez MD PhD Active BACTRIM DS 800-160 MG TABS 1 po BID x 7 days SULFAMETHOXAZOLE-TRIMETHOPRIM 91098399721 No Longer Active Vishal Hui MD Active CHANTIX STARTING MONTH EARNEST 0.5 MG X 11 & 1 MG X 42 TABS 0.5mg daily for 3 days , then 0.5mg BID for 4 days, then 1mg BID VARENICLINE TARTRATE 56960756126 No Longer Active TAMARA Gray Active METOPROLOL TARTRATE 50 MG TAB 1 po bid METOPROLOL TARTRATE 48125358373 Active Vishal Hui MD Active VERAPAMIL HCL CR 120 MG TAB CR 1 po bid VERAPAMIL HCL 09873239264 No Longer Active Vishal Hui MD Active METOPROLOL SUCCINATE 50 MG TB24 1 tablet by mouth daily METOPROLOL SUCCINATE 69126518869 No Longer Active Vishal Hui MD Active TRAMADOL HCL 50 MG TABS 1-2 po TID PRN Pain TRAMADOL HCL 28205537452 Active Luigi Martínez FRAME NAILER Active SAPHRIS 10 MG SUBL 1 tab po bid ASENAPINE MALEATE 90322194670 No Longer Active Vishal Hui MD Active LISINOPRIL 20 MG TABS 1 tab po qd LISINOPRIL 16268606728 No Longer Active Vishal Hui MD Active BENADRYL 25 MG CAP 2 po tid prn anxiety DIPHENHYDRAMINE HCL 93015064371 Active Vishal Hui MD Active LATUDA 20 MG TABS Take one by mouth daily LURASIDONE HCL 94705065922 No Longer Active Vishal Hui MD Active TRAZODONE HCL 50 MG TABS 1/2 tab po qd prn for anxiety TRAZODONE HCL 89111920457 No Longer Active Vishal Hui MD Active PIROXICAM 20 MG CAPS 1 cap po qd PRN Pain PIROXICAM 27406521518 Active Vishal Hui MD Active OMEPRAZOLE 20 MG TBEC 1 po q a.m. 30min prior to first food intake OMEPRAZOLE 98994727074 Active Vishal Hui MD Active RANITIDINE HCL 150 MG CAPS 1 twice a day RANITIDINE HCL 52699031624 Active Vishal Hui MD Active LINZESS 290 MCG CAPS Take one by mouth daily LINACLOTIDE 25681076762 No Longer Active Vishal Hui MD Active SAPHRIS 5 MG SUBL 1 tab po qd ASENAPINE MALEATE 87693621129 No Longer Active Vishal Hui MD Active ZALEPLON 10 MG CAPS 1 cap po every other night ZALEPLON 10396372807 No Longer Active Vishal Hui MD Active LYRICA 50 MG CAPS 1 tab po TID PREGABALIN 88331031305 No Longer Active Vishal Hui MD Active LORATADINE 10 MG TABS 1 tab po qd LORATADINE 96385788854 No Longer Active Vishal Hui MD Active VERAPAMIL HCL ER 180 MG CR-TABS 1 tab po bid VERAPAMIL HCL 54321835950 No Longer Active Vishal Hui MD Active MIRALAX POWD 1 capfull once daily POLYETHYLENE GLYCOL 3350 06796250483 No Longer Active Vishal Hui MD Active PREDNISONE 20 MG TABS 1 tab po qd PREDNISONE 76635567463 No Longer Active Renzo Thornton DO Active LEVOFLOXACIN 500 MG TABS 1 tab po qd LEVOFLOXACIN 79842075536 No Longer Active Renzo Thornton DO Active BUSPIRONE HCL 15 MG TABS 1 tab po TID BUSPIRONE HCL 73067117356 No Longer Active Renzo Thornton DO Active BENZTROPINE MESYLATE 1 MG TABS 1 tab po qd BENZTROPINE MESYLATE 16208606858 No Longer Active Renzo Thornton DO Active ATENOLOL 25 MG TABS 1 tab po qd ATENOLOL 51297539280 No Longer Active Renzo Thornton DO Active ESCITALOPRAM OXALATE 20 MG TABS 1 tab po qd ESCITALOPRAM OXALATE 69724299801 No Longer Active Renzo Thornton DO Active ADVAIR DISKUS 250-50 MCG/DOSE AEPB 1 puff BID FLUTICASONE-SALMETEROL 11357724877 No Longer Active Renzo Thornton DO Active PREDNISONE 20 MG TAB 2 tabs daily for 3 days, 1 tab daily for 3 days, 1/2 tab daily for 2 days PREDNISONE 88584352412 No Longer Active Vishal Hui MD Active CEFDINIR 300 MG CAPS by mouth twice a day CEFDINIR 19174825693 No Longer Active Vishal Hui MD Active LANSOPRAZOLE 30 MG CPDR 1 cap po qd LANSOPRAZOLE 09572593748 No Longer Active Vishal Hui MD Active BACLOFEN 20 MG TABS 1 tab po tid BACLOFEN 80275085092 No Longer Active Vishal Hui MD Active ADVAIR DISKUS 250-50 MCG/DOSE AEPB 1 puff BID ADVAIR DISKUS 250-50 MCG/DOSE AEPB FLUTICASONE-SALMETEROL Inactive ESCITALOPRAM OXALATE 20 MG TABS 1 tab po qd ESCITALOPRAM OXALATE 20 MG TABS 853983 ESCITALOPRAM OXALATE Inactive ATENOLOL 25 MG TABS 1 tab po qd ATENOLOL 25 MG TABS 404786 ATENOLOL Inactive BENZTROPINE MESYLATE 1 MG TABS 1 tab po qd BENZTROPINE MESYLATE 1 MG TABS 211309 BENZTROPINE MESYLATE Inactive BUSPIRONE HCL 15 MG TABS 1 tab po TID BUSPIRONE HCL 15 MG TABS 995880 BUSPIRONE HCL Inactive LEVOFLOXACIN 500 MG TABS 1 tab po qd LEVOFLOXACIN 500 MG TABS 090819 LEVOFLOXACIN Inactive PREDNISONE 20 MG TABS 1 tab po qd PREDNISONE 20 MG TABS 368844 PREDNISONE Inactive MIRALAX POWD 1 capfull once daily MIRALAX POWD 643375 POLYETHYLENE GLYCOL 3350 Inactive VERAPAMIL HCL ER 180 MG CR-TABS 1 tab po bid VERAPAMIL HCL ER 180 MG CR-TABS VERAPAMIL HCL Inactive LORATADINE 10 MG TABS 1 tab po qd LORATADINE 10 MG TABS 007676 LORATADINE Inactive LYRICA 50 MG CAPS 1 tab po TID LYRICA 50 MG CAPS PREGABALIN Inactive ZALEPLON 10 MG CAPS 1 cap po every other night ZALEPLON 10 MG CAPS 324324 ZALEPLON Inactive SAPHRIS 5 MG SUBL 1 tab po qd SAPHRIS 5 MG SUBL ASENAPINE MALEATE Inactive TRAZODONE HCL 50 MG TABS 1/2 tab po qd prn for anxiety TRAZODONE HCL 50 MG TABS 413263 TRAZODONE HCL Inactive LATUDA 20 MG TABS Take one by mouth daily LATUDA 20 MG TABS LURASIDONE HCL Inactive LISINOPRIL 20 MG TABS 1 tab po qd LISINOPRIL 20 MG TABS 754691 LISINOPRIL Inactive SAPHRIS 10 MG SUBL 1 [...] twice daily BACTRIM DS 800-160 MG TAB 978061 TRIMETHOPRIM-SULFAMETHOXAZOLE Inactive MULTIVITAMINS CAPS Take one by mouth daily MULTIVITAMINS CAPS MULTIPLE VITAMIN Inactive MELATONIN 3 MG CAPS 2 po q hs MELATONIN 3 MG CAPS 087845 MELATONIN Inactive KEFLEX 500 MG ORAL CAPS 1 cap QID by mouth KEFLEX 500 MG ORAL CAPS 736961 CEPHALEXIN Inactive CLINDAMYCIN HCL 150 MG CAPS 1 four times a day CLINDAMYCIN HCL 150 MG CAPS 865126 CLINDAMYCIN HCL Inactive DIFLUCAN 150 MG TAB 1 tablet by mouth daily DIFLUCAN 150 MG TAB 265078 FLUCONAZOLE Inactive PROZAC 20 MG CAP Take one by mouth daily PROZAC 20 MG CAP 984874 FLUOXETINE HCL Inactive IBUPROFEN 600 MG TAB 1 po TID PRN IBUPROFEN 600 MG TAB 136537 IBUPROFEN Inactive VYVANSE 40 MG CAPS 1 daily, VYVANSE 40 MG CAPS LISDEXAMFETAMINE DIMESYLATE Inactive TRAZODONE HCL 100 MG TAB take 1 at bedtime TRAZODONE HCL 100 MG TAB 187707 TRAZODONE HCL Inactive AMITRIPTYLINE HCL 100 MG TAB one at hs AMITRIPTYLINE HCL 100 MG TAB 595835 AMITRIPTYLINE HCL Inactive AMLODIPINE BESYLATE 5 MG TABS 1 tablet by mouth daily AMLODIPINE BESYLATE 5 MG TABS 676887 AMLODIPINE BESYLATE Inactive LATUDA 80 MG TABS Take one by mouth daily LATUDA 80 MG TABS LURASIDONE HCL Inactive SAPHRIS 5 MG SUBL 1 po bid SAPHRIS 5 MG SUBL ASENAPINE MALEATE Inactive CEFDINIR 300 MG CAPS by mouth twice a day CEFDINIR 300 MG CAPS 740374 CEFDINIR Inactive PREDNISONE 20 MG TAB 2 tabs daily for 3 days, 1 tab daily for 3 days, 1/2 tab daily for 2 days PREDNISONE 20 MG TAB 389318 PREDNISONE Inactive BACTRIM DS 800-160 MG TABS 1 po BID x 7 days BACTRIM DS 800-160 MG TABS 19820521 SULFAMETHOXAZOLE-TRIMETHOPRIM Inactive DIFLUCAN 150 MG TABS 1 pill every other day x 2 doses DIFLUCAN 150 MG TABS 378199 FLUCONAZOLE Inactive BACTRIM DS 800-160 MG TABS [...] pressure, diastolic - 8462-4 75 mm[Hg] BP cmnally blood pressure, systolic - 8480-6 112 mm[Hg] [...] Panel - Chemistry sodium, serum 139 mmol/L 429-938 3521/12/03 carbon dioxide, venous blood 28.5 mmol/L 21.0-32.0 [...] 5.5 % 4.3-6.0 cholesterol, serum 159 mg/dL 519-917 7671/12/03 triglyceride, serum, fasting 118 mg/dL 30-200 HDL [...] ... - Chemistry sodium, serum 140 mmol/L 039-991 3914/05/28 potassium, serum 4.2 mmol/L 3.5-5.2 chloride, serum [...] Panel - Chemistry sodium, serum 141 mmol/L 340-270 8977 potassium, serum 4.3 mmol/L 3.5-5.2 chloride, serum 106 mmol/L 98-107 carbon dioxide, venous blood 25.7 mmol/L 21.0-32.0 blood glucose 119 mg/dL 65-110 urea nitrogen, blood 22 mg/dL 7-18 creatinine, serum 0.90 mg/dL 0.60-1.30 alanine aminotransferase (SGPT), serum 28 U/L 12-78 aspartate aminotransferase (SGOT), serum 13 U/L 15-37 calcium, serum 8.5 mg/dL 8.5-10.1 bilirubin, serum, total 0.20 mg/dL 0.00-1.00 sodium, serum 139 mmol/L 424-798 5349/12/22 carbon dioxide, venous blood 26.8 mmol/L 21.0-32.0 [...] Rate - Chemistry sodium, serum 139 mmol/L 835-209 1679/12/11 carbon dioxide, venous blood 25.4 mmol/L 21.0-32.0 [...] Negative Negative pH, urine, semiquantitative 5.5 5.0-8.5 urine color Yellow Colorless;Lightyellow;Straw;Yellow appearance, urine Clear Clear specific gravity, urine 1.025 1.000-1.030 pH, urine, semiquantitative 6.0 5.0-8.5 urine color Yellow Colorless;Lightyellow;Straw;Yellow appearance, urine Clear Clear specific gravity, urine 1.025 1.000-1.030 Lab Report: [place] [facility] [place] RBC, urine, dipstick Negative Negative protein, total urine random Negative mg/dL Negative human chorionic gonadotropin, urine, qualitative (urine test) Negative Negative Lab Report: [place] W/MI[place], [place] [facility] [place] pH, urine, semiquantitative 7.0 5.0-8.5 specific gravity, urine 1.025 1.000-1.030 appearance, urine Clear Clear urine color Yellow Colorless;Lightyellow;Straw;Yellow urobilinogen, urine, semiquantitative (dipstick) 0.2 Normal leukocyte esterase, urine, by dipstick Negative Negative nitrite, urine, semiquantitative Negative Negative glucose, urine, semiquantitative Negative Negative ketones, urine, by test strip Negative Negative bilirubin, urine Negative Negative Lab Report: Varicella-Zoater Inga IgG,IgM/59999, HEP Be Antibody/556, RUB ... - Serology rubella antibody, serum, IgG 2.88 Encounters Code Encounter Date Provider Facility CPT-19071 Level 4 Est. Patient 09:00:51 DEVELOPMENTAL MATHEMATICS PROFESSOR Vishal Hui MD [facility] CPT-44146 Level 3 Est. Patient 11:37:33 DEVELOPMENTAL MATHEMATICS PROFESSOR Vishal Hui MD [facility] CPT-77553 Level 3 Est. Patient 08:41:09 DEVELOPMENTAL MATHEMATICS PROFESSOR Vishal Hui MD [facility] CPT-49206 Level 4 Est. Patient 10:19:35 DEVELOPMENTAL MATHEMATICS PROFESSOR Vishal Hui MD [facility] CPT-37272 Level 3 Est. Patient 13:35:45 CDT Vishal Hui MD [facility] CPT-47484 Level 4 Est. Patient 10:08:37 CDT Vishal Hui MD [facility] CPT-20452 Level 3 Est. Patient 11:22:10 CDT Vishal Hui MD [facility] CPT-26769 Level 3 Est. Patient 11:03:32 CDT Sahara Rodriguez MD [facility] CPT-51665 Level 3 Est. Patient 09:41:35 CDT Vishal Hui MD [facility] CPT-00308 Level 3 Est. Patient 12:00:41 CDT Neeraj Collins MD [facility] CPT-38070 Level 3 Est. Patient 09:16:24 CDT Vishal Hui MD [facility] CPT-97846 Level 4 Est. Patient 13:59:09 CDT Neeraj Collins MD [facility] CPT-66112 Level 3 Est. Patient 15:19:43 CDT Renzo Thornton DO [facility] CPT-93169 Level 3 Est. Patient 18:10:26 CDT Sahara Rodriguez MD [facility] CPT-74644 Level 3 Est. Patient 14:49:50 CDT Vishal Hui MD [facility] CPT-19945 Level 4 Est. Patient 18:41:46 CDT Neeraj Collins MD [facility] CPT-34238 Level 4 Est. Patient 09:18:38 DEVELOPMENTAL MATHEMATICS PROFESSOR Vishal Hui MD [facility] CPT-24719 Level 3 Est. Patient 14:43:55 DEVELOPMENTAL MATHEMATICS PROFESSOR Vishal Hui MD [facility] CPT-63730 Level 3 Est. Patient 15:26:33 DEVELOPMENTAL MATHEMATICS PROFESSOR Sahara Rodriguez MD PhD [facility] CPT-48431 Level 3 Est. Patient 10:32:14 DEVELOPMENTAL MATHEMATICS PROFESSOR Vishal Hui MD [facility] CPT-92605 Level 3 Est. Patient 15:12:52 DEVELOPMENTAL MATHEMATICS PROFESSOR Vishal Hui MD [facility] CPT-82422 Level 4 Est. Patient 09:19:27 CDT Vishal Hui MD [facility] CPT-92963 Level 3 Est. Patient 15:53:00 CDT Renzo Thornton [facility] CPT-08786 Level 3 Est. Patient 15:50:30 CDT Renzo Thornton [facility] CPT-73022 Level 3 Est. Patient 16:55:24 CDT Vishal Hui MD [facility] Procedures Code Procedure Name Date Entry Date Standard Description CPT-J3420 Vitamin B12 1000mcg (Cyanocobalamin) 16:57:46 CDT 08/14 CPT-82758 Recombivax HB Injection Suspension 5 MCG/0.5ML 08:37:50 DEVELOPMENTAL MATHEMATICS PROFESSOR CPT-71400 Immunization Single Admin 08:37:50 DEVELOPMENTAL MATHEMATICS PROFESSOR CPT-J3420 Vitamin B12 1000mcg (Cyanocobalamin) 08:32:16 DEVELOPMENTAL MATHEMATICS PROFESSOR 03/11 CPT-40417 Abx/Therapy Injection 08:32:16 DEVELOPMENTAL MATHEMATICS PROFESSOR CPT-21832 Chest 2V Frontal and Lat 11:46:38 DEVELOPMENTAL MATHEMATICS PROFESSOR CPT-56508 Venipuncture Draw Fee 09:12:45 DEVELOPMENTAL MATHEMATICS PROFESSOR CPT-J3420 Vitamin B12 1000mcg (Cyanocobalamin) 08:50:15 DEVELOPMENTAL MATHEMATICS PROFESSOR 02/08 CPT-53328 Abx/Therapy Injection 08:50:15 DEVELOPMENTAL MATHEMATICS PROFESSOR CPT-Cryo Cryotherapy 10:19:35 DEVELOPMENTAL MATHEMATICS PROFESSOR CPT-000 Give Appropriate Flu Vaccine 09:22:16 CDT CPT-J3420 Vitamin B12 1000mcg (Cyanocobalamin) 19:08:57 CDT 01/11 CPT-19544 Abx/Therapy Injection 19:08:57 CDT CPT-J3420 Vitamin B12 1000mcg (Cyanocobalamin) 08:19:08 CDT 12/11 CPT-02294 Abx/Therapy Injection 08:19:08 CDT CPT-J3420 Vitamin B12 1000mcg (Cyanocobalamin) 14:48:00 CDT 11/09 CPT-25906 Abx/Therapy Injection 14:47:59 CDT CPT-J3420 Vitamin B12 1000mcg (Cyanocobalamin) 08:34:04 CDT 10/09 CPT-44499 Abx/Therapy Injection 08:34:04 CDT CPT-J3420 Vitamin B12 1000mcg (Cyanocobalamin) 09:18:52 CDT 09/11 CPT-15781 Abx/Therapy Injection 09:18:52 CDT CPT-J3420 Vitamin B12 1000mcg (Cyanocobalamin) 08:35:44 CDT 09/04 CPT-88958 Abx/Therapy Injection 08:35:44 CDT CPT-71055 Immunization Single Admin 11:07:16 CDT CPT-26982 Hepatitis B adult IM 11:07:16 CDT CPT-J3420 Vitamin B12 1000mcg (Cyanocobalamin) 11:00:49 CDT 08/28 CPT-J1040 Depo Medrol 80 mg (Methyl Prednisolone Acetate) 11:00: 49 CDT CPT-81524 Abx/Therapy Injection 11:00:49 CDT CPT-J1040 Depo Medrol 80 mg (Methyl Prednisolone Acetate) 09:16: 23 CDT CPT-J3420 Vitamin B12 1000mcg (Cyanocobalamin) 08:27:05 CDT 08/20 CPT-75329 Abx/Therapy Injection 08:27:05 CDT CPT-84319 Recombivax HB Injection Suspension 5 MCG/0.5ML 10:00:41 CDT CPT-62713 Administration single or combination vaccine inc oral 10 :00:41 CDT CPT-79876 Sono transvag pelvis non OB uterus ovaries cervix 16:36: 57 CDT CPT-63527 LS spine comp w obliq 09:50:55 DEVELOPMENTAL MATHEMATICS PROFESSOR CPT-23955 Abd compl w upright 09:50:55 DEVELOPMENTAL MATHEMATICS PROFESSOR CPT-J1100 Decadron 4mg (Dexamethasone) 15:51:24 DEVELOPMENTAL MATHEMATICS PROFESSOR CPT-J1030 Depo Medrol 40 mg (Methyl Prednisolone Acetate) 15:51: 24 DEVELOPMENTAL MATHEMATICS PROFESSOR CPT-97765 Abx/Therapy Injection 15:51:24 DEVELOPMENTAL MATHEMATICS PROFESSOR CPT-J1100 Decadron 4mg (Dexamethasone) 15:26:33 DEVELOPMENTAL MATHEMATICS PROFESSOR CPT-J1030 Depo Medrol 40 mg (Methyl Prednisolone Acetate) 15:26: 33 DEVELOPMENTAL MATHEMATICS PROFESSOR CPT-87202 Sono retroperitoneal complete kidneys and bladder 17:15: 30 CDT CPT-96816 Abd compl w upright 16:09:25 CDT CPT-J1100 Decadron 8mg (Dexamethasone) 17:07:57 CDT CPT-51849 Abx/Therapy Injection 17:07:57 CDT CPT-J1100 Decadron 8mg (Dexamethasone) 16:55:24 CDT CPT-06002 Chest 2V Frontal and Lat 16:32:44 CDT
--- OUTSIDE RECORDS SUMMARY | 2016-11-04 22:34 | XMS REPORT ---
Author Author [id number] Medical Staff Organization [facility] Address [address] [place], [place] [id number] Phone [phone] Care Team Providers Care Residential Coordinator Name Role Phone DENICE OCHOA MD, PP [phone] Summary purpose TRANSITION OF CARE AUTO GENERATION [...] diagnostic tests and/or laboratory data RESULTS Chemistry 20-54-021159:56:00 Result Normal Range Units Sodium 140 134-145 mEq/l Potassium 4.2 3.5-5.1 mEq/l Chloride 107 98-107 mEq/l CO2 23.9 22-28 mEq/l Glucose 89 70-105 mg/dl BUN 8 7-18 mg/dl Creatinine 0.68 0.6-1.0 mg/dl Calcium L 8.3 8.4-10.2 mg/dl Osmolality L 277.2 280-300 mOsm/L Anion GAP 9.1 8-16 BUN/Creatinine Ratio 11.8 10-20 Estimated GFR 103 >=60 mL/min/1.7 Hematology - Other (Misc) 61-54-771874:56:00 Result Normal Range Units Sed Rate 7 0-20 History of procedures Procedure Code Code Type Description Date Performed Performing Physician 21114 CPT-4 METABOLIC PANEL TOTAL CA 07-14-2015 OLGA PATEL 37062 CPT-4 RBC SED RATE, NONAUTOMATED 07-14-2015 OLGA PATEL Functional status No functional or [...]
--- OUTSIDE RECORDS SUMMARY | 2016-11-04 22:34 | XMS REPORT | Clinical Summary ---
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 Hypoxemia Neck pain 723.1 Resolved Vishal [...] ICD-789.00 Inactive Vishal Hiu MD Cellulitis ICD-682.9 Jim Hui MD Pelvic [...] a day as needed 2015 ALBUTEROL SULFATE 54193797117 Active Ahmet Carbajal MD Active EQ NICOTINE 21 MG/24HR TRANS PT24 Apply daily to stop smoking NICOTINE 34472664202 Active Ahmet Carbajal MD Active BACTRIM DS 800-160 MG TABS 1 twice a day SULFAMETHOXAZOLE- TRIMETHOPRIM 09738887073 Active Ahmet Carbajal MD Active ADVAIR DISKUS 250-50 MCG/DOSE INH AEPB 1 puff twice a day for asthma FLUTICASONE-SALMETEROL 17477606935 Active Ahmet Carbajal MD Active MONISTAT 7 COMBO PACK WOODROW 100 & 2 MG-% (9GM) VAG KIT 1 applicatorful per vagina q pm x 7 MICONAZOLE NITRATE 51284412882 No Longer Active Ahmet aCrbajal MD Active FLAGYL 500 MG TAB 1 tablet by mouth bid METRONIDAZOLE 50487986458 No Longer Active Ahmet Carbajal MD Active OXYCODONE HCL ER 10 MG ORAL T12A 1/2 tab by mouth every 4 hours prn OXYCODONE HCL 60246636622 No Longer Active Ahmet Carbajal MD Active METHYLPREDNISOLONE 4 MG ORAL TABS po daily METHYLPREDNISOLONE 43114770957 No Longer Active Ahmet Carbajal MD Active LEVOFLOXACIN 500 MG ORAL TABS po daily LEVOFLOXACIN 31276730630 No Longer Active Ahmet Carbajal MD Active VIIBRYD 10 MG ORAL TABS Take 1 tablet once a day VILAZODONE HCL 00041448933 No Longer Active Ahmet Carbajal MD Active TOPAMAX 50 MG ORAL TABS 1 tab twice daily TOPIRAMATE 20922557253 No Longer Active Ahmet Carbajal MD Active DICLOFENAC SODIUM 50 MG TBEC 1 tablet by mouth four times daily PRN Pain 2015 DICLOFENAC SODIUM 07367646361 No Longer Active Ahmet Carbajal MD Active ADZENYS XR-ODT 6.3 MG ORAL TBED 1 tab po daily for ADHD AMPHETAMINE 25700235592 No Longer Active Ahmet Carbajal MD Active CHANTIX 1 MG TABS 1 twice a day to help quit smoking VARENICLINE TARTRATE 48775583168 No Longer Active Dipika Burgos MD Active CHANTIX STARTING MONTH EARNEST 0.5 MG X 11 & 1 MG X 42 TABS take as directed 2015 VARENICLINE TARTRATE 18995298591 No Longer Active Dipika Burgos MD Active TESSALON PERLES 100 MG CAP 1 to 2 tablets by mouth 3 times daily as needed for cough BENZONATATE 61095649149 No Longer Active Luigi Martínez 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 May repeat dose x 1 in 2 hours if needed SUMATRIPTAN SUCCINATE 40044919023 Active Vishal Hui MD Active HYDROCODONE-ACETAMINOPHEN 5-325 MG TABS 1 to 2 four times a day as needed for pain use until can be seen by specialist HYDROCODONE- ACETAMINOPHEN 12194022085 No Longer Active Vishal Hui MD Active PROAIR HFA 108 (90 BASE) MCG/ACT AERS 2 puffs four times a day as needed 2015 ALBUTEROL SULFATE 91167195130 No Longer Active Vishal Hui MD Active PREDNISONE 20 MG TABS 2 daily for 5 days then 1 daily for 5 days PREDNISONE 10141975775 No Longer Active Vishal Hui MD Active ZITHROMAX Z-EARNEST 250 MG TABS 2 today and then 1 daily for 4 days AZITHROMYCIN 16983596595 No Longer Active Vishal Hui MD Active DICLOFENAC POTASSIUM TABS Take 1 tablet twice a day (pt. is not sure of the dose.) DICLOFENAC POTASSIUM TABS 73096381146 No Longer Active Vishal Hui MD Active VERAPAMIL HCL ER 120 MG ORAL CR-TABS Take 1 tablet by mouth twice a day. VERAPAMIL HCL 43680900705 Active Vishal Hui MD Active FLAGYL 500 MG TAB 1 tablet by mouth bid METRONIDAZOLE 41315208217 No Longer Active Vishal Hui MD Active FLUTICASONE PROPIONATE 50 MCG/ACT SUSP 2 sprays each nostril daily before bed. FLUTICASONE PROPIONATE 24785123316 Active Fabiola Johnson APRN Active BENADRYL 25 MG CAP 4 po at bedtime for insomnia DIPHENHYDRAMINE HCL 19154019385 Active Fabiola Johnson APRN Active KLONOPIN 1 MG ORAL TABS 1 tab po TID CLONAZEPAM 11453202550 Active Fabiola Johnson APRN Active VALIUM 5 MG TAB Take 1-2 tablets daily DIAZEPAM 03582647167 No Longer Active Fabiola Johnson APRN Active METOPROLOL TARTRATE 25 MG ORAL TABS 1/2 tablet twice daily for heart rate and blood pressure METOPROLOL TARTRATE 71200194332 No Longer Active Fabiola Johnson APRN Active MIRALAX ORAL POWD 17GMS DAILY IN WATER POLYETHYLENE GLYCOL 3350 41297287014 Active Vishal Hui MD Active MIRALAX PACK 1 po qd PRN Constipation POLYETHYLENE GLYCOL 3350 34416927565 No Longer Active Ahmet Carbajal MD Active MINIPRESS 2 MG CAPS 4 cap po at night PRAZOSIN HCL 91119838409 No Longer Active Ahmet Carbajal MD Active PIROXICAM 20 MG CAPS 1 cap po qd PRN Pain PIROXICAM 15989798706 No Longer Active Ahmet Carbajal MD Active TRAMADOL HCL 50 MG TABS 1-2 po TID PRN Pain TRAMADOL HCL 93269193480 No Longer Active Ahmet Carbajal MD Active METOPROLOL TARTRATE 50 MG TAB 1 po bid METOPROLOL TARTRATE 94635352181 No Longer Active Ahmet Carbajal MD Active ABILIFY 15 MG ORAL TABS 1 tab daily ARIPIPRAZOLE 10209700636 No Longer Active Ahmet Carbajal MD Active PROZAC 20 MG ORAL CAPS 1 tab daily FLUOXETINE HCL 95158631294 No Longer Active Ahmet Carbajal MD Active AMBIEN 5 MG ORAL TABS 1 tab at bedtime ZOLPIDEM TARTRATE 10981616770 No Longer Active Ahmet Carbajal MD Active PREDNISONE 20 MG TAB 2 tabs daily for 4 days, 1 tab daily for 4 days, 1/2 tab daily for 4 days PREDNISONE 28735562361 No Longer Active Ahmet Carbajla MD Active KEFLEX 500 MG CAP 1 po TID x 10 days CEPHALEXIN 92086712648 No Longer Active Vishal Hui MD Active SAPHRIS 5 MG SUBL 1 po bid ASENAPINE MALEATE 44096727242 No Longer Active Jillina Mauricio 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 LATUDA 80 MG TABS Take one by mouth daily LURASIDONE HCL 44806210405 No Longer Active Jillina Frazell 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 AMLODIPINE BESYLATE 5 MG TABS 1 tablet by mouth daily AMLODIPINE BESYLATE 81864991909 No Longer Active Jillina Fradwightl 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 AMITRIPTYLINE HCL 100 MG TAB one at hs AMITRIPTYLINE HCL 83445085953 No Longer Active Vishal Hui MD Active TRAZODONE HCL 100 MG TAB take 1 at bedtime TRAZODONE HCL 51219272727 No Longer Active Vishal Hui MD Active VYVANSE 40 MG CAPS 1 daily, LISDEXAMFETAMINE DIMESYLATE 33797728276 No Longer Active Vishal Hui MD Active IBUPROFEN 600 MG TAB 1 po TID PRN IBUPROFEN 34346003020 No Longer Active Vishal Hui MD Active PROZAC 20 MG CAP Take one by mouth daily FLUOXETINE HCL 16792497963 No Longer Active Vishal Hui MD Active ZOFRAN 4 MG TABS 1 po q6hr PRN Nausea ONDANSETRON HCL Active Vishal Hui MD Active BACTRIM DS 800-160 MG TABS 1 pill by mouth twice daily SULFAMETHOXAZOLE-TRIMETHOPRIM 51834225542 No Longer Active Sahara Rodriguez MD PhD Active DIFLUCAN 150 MG TAB 1 tablet by mouth daily FLUCONAZOLE 44175592422 No Longer Active Vishal Hui MD Active TIZANIDINE HCL 4 MG TABS 1 po q6hr PRN Muscle Spasm/Back Pain TIZANIDINE HCL 38249834315 Active Vishal Hui MD Active CLINDAMYCIN HCL 150 MG CAPS 1 four times a day CLINDAMYCIN HCL 99095738562 No Longer Active Neeraj Collins MD Active KEFLEX 500 MG ORAL CAPS 1 cap QID by mouth CEPHALEXIN 33997202536 No Longer Active Neeraj Collins MD Active DIFLUCAN 150 MG TABS 1 pill every other day x 2 doses FLUCONAZOLE 91069246217 No Longer Active Sahara Rodriguez MD PhD Active MELATONIN 3 MG CAPS 2 po q hs MELATONIN 82455052392 No Longer Active Sahara Rodriguez MD PhD Active MULTIVITAMINS CAPS Take one by mouth daily MULTIPLE VITAMIN 71266747736 No Longer Active Sahara Rodriguez MD PhD Active BACTRIM DS 800-160 MG TAB 1 tab by mouth twice daily TRIMETHOPRIM-SULFAMETHOXAZOLE 39088488794 No Longer Active Sahara Rodriguez MD PhD Active [facility] PROBIOTIC ORAL CHEW 2 daily po PROBIOTIC PRODUCT 17360642626 No Longer Active Sahara Rodriguez MD PhD Active BACTRIM DS 800-160 MG TABS 1 po BID x 7 days SULFAMETHOXAZOLE-TRIMETHOPRIM 44664558590 No Longer Active Vishal Hui MD Active CHANTIX STARTING MONTH EARNEST 0.5 MG X 11 & 1 MG X 42 TABS 0.5mg daily for 3 days , then 0.5mg BID for 4 days, then 1mg BID VARENICLINE TARTRATE 12543450844 No Longer Active TAMARA Gray Active VERAPAMIL HCL CR 120 MG TAB CR 1 po bid VERAPAMIL HCL 39666130369 No Longer Active Vishal Hui MD Active METOPROLOL SUCCINATE 50 MG TB24 1 tablet by mouth daily METOPROLOL SUCCINATE 54896802174 No Longer Active Vishal Hui MD Active SAPHRIS 10 MG SUBL 1 tab po bid ASENAPINE MALEATE 75938182850 No Longer Active Vishal Hui MD Active LISINOPRIL 20 MG TABS 1 tab po qd LISINOPRIL 70199930924 No Longer Active Vishal Hui MD Active LATUDA 20 MG TABS Take one by mouth daily LURASIDONE HCL 99904082947 No Longer Active Vishal Hui MD Active TRAZODONE HCL 50 MG TABS 1/2 tab po qd prn for anxiety TRAZODONE HCL 27795784161 No Longer Active Vishal Hui MD Active OMEPRAZOLE 20 MG TBEC 1 po q a.m. 30min prior to first food intake OMEPRAZOLE 77328067579 Active Vishal Hui MD Active RANITIDINE HCL 150 MG CAPS 1 twice a day RANITIDINE HCL 02671196751 Active Luigi Martínez APRN Active LINZESS 290 MCG CAPS Take one by mouth daily LINACLOTIDE 69356066660 No Longer Active Vishal Hui MD Active SAPHRIS 5 MG SUBL 1 tab po qd ASENAPINE MALEATE 96121790380 No Longer Active Vishal Hui MD Active ZALEPLON 10 MG CAPS 1 cap po every other night ZALEPLON 32628083664 No Longer Active Vishal Hui MD Active LYRICA 50 MG CAPS 1 tab po TID PREGABALIN 23799344934 No Longer Active Vishal Hui MD Active LORATADINE 10 MG TABS 1 tab po qd LORATADINE 04169496644 No Longer Active Vishal Hui MD Active VERAPAMIL HCL ER 180 MG CR-TABS 1 tab po bid VERAPAMIL HCL 25205742057 No Longer Active Vishal Hui MD Active MIRALAX POWD 1 capfull once daily POLYETHYLENE GLYCOL 3350 94340852039 No Longer Active Vishal Hui MD Active PREDNISONE 20 MG TABS 1 tab po qd PREDNISONE 77632137586 No Longer Active Renzo Thornton DO Active LEVOFLOXACIN 500 MG TABS 1 tab po qd LEVOFLOXACIN 76486340404 No Longer Active Renzo Thornton DO Active BUSPIRONE HCL 15 MG TABS 1 tab po TID BUSPIRONE HCL 34148011784 No Longer Active Renzo Thornton DO Active BENZTROPINE MESYLATE 1 MG TABS 1 tab po qd BENZTROPINE MESYLATE 35812912021 No Longer Active Renzo Thornton DO Active ATENOLOL 25 MG TABS 1 tab po qd ATENOLOL 31876863363 No Longer Active Renzo Thornton DO Active ESCITALOPRAM OXALATE 20 MG TABS 1 tab po qd ESCITALOPRAM OXALATE 71932099024 No Longer Active Renzo Thornton DO Active ADVAIR DISKUS 250-50 MCG/DOSE AEPB 1 puff BID FLUTICASONE-SALMETEROL 98072184157 No Longer Active Renzo Thornton DO Active PREDNISONE 20 MG TAB 2 tabs daily for 3 days, 1 tab daily for 3 days, 1/2 tab daily for 2 days PREDNISONE 41040432786 No Longer Active Vishal Hui MD Active CEFDINIR 300 MG CAPS by mouth twice a day CEFDINIR 99865463175 No Longer Active Vishal Hui MD Active LANSOPRAZOLE 30 MG CPDR 1 cap po qd LANSOPRAZOLE 30279354161 No Longer Active Vishal Hui MD Active BACLOFEN 20 MG TABS 1 tab po tid BACLOFEN 89559901889 No Longer Active Vishal Hui MD Active ADVAIR DISKUS 250-50 MCG/DOSE AEPB 1 puff BID ADVAIR DISKUS 250-50 MCG/DOSE AEPB FLUTICASONE-SALMETEROL Inactive ESCITALOPRAM OXALATE 20 MG TABS 1 tab po qd ESCITALOPRAM OXALATE 20 MG TABS 259033 ESCITALOPRAM OXALATE Inactive ATENOLOL 25 MG TABS 1 tab po qd ATENOLOL 25 MG TABS 195490 ATENOLOL Inactive BENZTROPINE MESYLATE 1 MG TABS 1 tab po qd BENZTROPINE MESYLATE 1 MG TABS 753503 BENZTROPINE MESYLATE Inactive BUSPIRONE HCL 15 MG TABS 1 tab po TID BUSPIRONE HCL 15 MG TABS 468555 BUSPIRONE HCL Inactive LEVOFLOXACIN 500 MG TABS 1 tab po qd LEVOFLOXACIN 500 MG TABS 334406 LEVOFLOXACIN Inactive PREDNISONE 20 MG TABS 1 tab po qd PREDNISONE 20 MG TABS 632681 PREDNISONE Inactive MIRALAX POWD 1 capfull once daily MIRALAX POWD 436943 POLYETHYLENE GLYCOL 3350 Inactive VERAPAMIL HCL ER 180 MG CR-TABS 1 tab po bid VERAPAMIL HCL ER 180 MG CR-TABS VERAPAMIL HCL Inactive LORATADINE 10 MG TABS 1 tab po qd LORATADINE 10 MG TABS 656098 LORATADINE Inactive LYRICA 50 MG CAPS 1 tab po TID LYRICA 50 MG CAPS PREGABALIN Inactive ZALEPLON 10 MG CAPS 1 cap po every other night ZALEPLON 10 MG CAPS 605731 ZALEPLON Inactive SAPHRIS 5 MG SUBL 1 tab po qd SAPHRIS 5 MG SUBL ASENAPINE MALEATE Inactive TRAZODONE HCL 50 MG TABS 1/2 tab po qd prn for anxiety TRAZODONE HCL 50 MG TABS 299141 TRAZODONE HCL Inactive LATUDA 20 MG TABS Take one by mouth daily LATUDA 20 MG TABS LURASIDONE HCL Inactive LISINOPRIL 20 MG TABS 1 tab po qd LISINOPRIL 20 MG TABS 630070 LISINOPRIL Inactive SAPHRIS 10 MG SUBL 1 [...] twice daily BACTRIM DS 800-160 MG TAB 436022 TRIMETHOPRIM-SULFAMETHOXAZOLE Inactive MULTIVITAMINS CAPS Take one by mouth daily MULTIVITAMINS CAPS MULTIPLE VITAMIN Inactive MELATONIN 3 MG CAPS 2 po q hs MELATONIN 3 MG CAPS 200331 MELATONIN Inactive KEFLEX 500 MG ORAL CAPS 1 cap QID by mouth KEFLEX 500 MG ORAL CAPS 279207 CEPHALEXIN Inactive CLINDAMYCIN HCL 150 MG CAPS 1 four times a day CLINDAMYCIN HCL 150 MG CAPS 058177 CLINDAMYCIN HCL Inactive DIFLUCAN 150 MG TAB 1 tablet by mouth daily DIFLUCAN 150 MG TAB 239496 FLUCONAZOLE Inactive PROZAC 20 MG CAP Take one by mouth daily PROZAC 20 MG CAP 052681 FLUOXETINE HCL Inactive IBUPROFEN 600 MG TAB 1 po TID PRN IBUPROFEN 600 MG TAB 404811 IBUPROFEN Inactive VYVANSE 40 MG CAPS 1 daily, VYVANSE 40 MG CAPS LISDEXAMFETAMINE DIMESYLATE Inactive TRAZODONE HCL 100 MG TAB take 1 at bedtime TRAZODONE HCL 100 MG TAB 690209 TRAZODONE HCL Inactive AMITRIPTYLINE HCL 100 MG TAB one at hs AMITRIPTYLINE HCL 100 MG TAB 759275 AMITRIPTYLINE HCL Inactive AMLODIPINE BESYLATE 5 MG TABS 1 tablet by mouth daily AMLODIPINE BESYLATE 5 MG TABS 942552 AMLODIPINE BESYLATE Inactive LATUDA 80 MG TABS Take one by mouth daily LATUDA 80 MG TABS LURASIDONE HCL Inactive SAPHRIS 5 MG SUBL 1 po bid SAPHRIS 5 MG SUBL ASENAPINE MALEATE Inactive PREDNISONE 20 MG TAB 2 tabs daily for 4 days, 1 tab daily for 4 days, 1/2 tab daily for 4 days PREDNISONE 20 MG TAB 880516 PREDNISONE Inactive AMBIEN 5 MG ORAL TABS 1 tab at bedtime AMBIEN 5 MG ORAL TABS 111722 ZOLPIDEM TARTRATE Inactive PROZAC 20 MG ORAL CAPS 1 tab daily PROZAC 20 MG ORAL CAPS 239673 FLUOXETINE HCL Inactive ABILIFY 15 MG ORAL TABS 1 tab daily ABILIFY 15 MG ORAL TABS 718744 ARIPIPRAZOLE Inactive METOPROLOL TARTRATE 50 MG TAB 1 po bid METOPROLOL TARTRATE 50 MG TAB 771659 METOPROLOL TARTRATE Inactive TRAMADOL HCL 50 MG TABS 1-2 po TID PRN Pain TRAMADOL HCL 50 MG TABS 394660 TRAMADOL HCL Inactive PIROXICAM 20 MG CAPS 1 cap po qd PRN Pain PIROXICAM 20 MG CAPS 296212 PIROXICAM Inactive MINIPRESS 2 MG CAPS 4 cap po at night MINIPRESS 2 MG CAPS 942883 PRAZOSIN HCL Inactive MIRALAX PACK 1 po qd PRN Constipation MIRALAX PACK 188704 POLYETHYLENE GLYCOL 3350 Inactive METOPROLOL TARTRATE 25 MG ORAL TABS 1/2 tablet twice daily for heart rate and blood pressure METOPROLOL TARTRATE 25 MG ORAL TABS 860105 METOPROLOL TARTRATE Inactive VALIUM 5 MG TAB Take 1-2 tablets daily VALIUM 5 MG TAB 591404 DIAZEPAM Inactive FLAGYL 500 MG TAB 1 tablet by mouth bid FLAGYL 500 MG TAB 204713 METRONIDAZOLE Inactive DICLOFENAC POTASSIUM TABS Take 1 tablet twice a day (pt. is not sure of the dose.) DICLOFENAC POTASSIUM TABS DICLOFENAC POTASSIUM TABS Inactive ZITHROMAX Z-EARNEST 250 MG TABS 2 today and then 1 daily for 4 days ZITHROMAX Z-EARNEST 250 MG TABS 3837075 AZITHROMYCIN Inactive PREDNISONE 20 MG TABS 2 daily for 5 days then 1 daily for 5 days PREDNISONE 20 MG TABS 697988 PREDNISONE Inactive PROAIR HFA 108 (90 BASE) MCG/ACT AERS 2 puffs four times a day as needed 2015 PROAIR HFA 108 (90 BASE) MCG/ACT AERS ALBUTEROL SULFATE Inactive HYDROCODONE-ACETAMINOPHEN 5-325 MG TABS 1 to 2 four times a day as needed for pain use until can be seen by specialist HYDROCODONE- ACETAMINOPHEN 5-325 MG TABS 907422 HYDROCODONE-ACETAMINOPHEN Inactive TESSALON PERLES 100 MG CAP 1 to 2 tablets by mouth 3 times daily as needed for cough TESSALON PERLES 100 MG CAP 326188 BENZONATATE Inactive CHANTIX STARTING MONTH EARNEST 0.5 [...] Pain 2015 DICLOFENAC SODIUM 50 MG TBEC 448095 DICLOFENAC SODIUM Inactive TOPAMAX 50 MG ORAL TABS 1 tab twice daily TOPAMAX 50 MG ORAL TABS 935944 TOPIRAMATE Inactive VIIBRYD 10 MG ORAL TABS Take 1 tablet once a day VIIBRYD 10 MG ORAL TABS VILAZODONE HCL Inactive LEVOFLOXACIN 500 MG ORAL TABS po daily LEVOFLOXACIN 500 MG ORAL TABS 394133 LEVOFLOXACIN Inactive METHYLPREDNISOLONE 4 MG ORAL TABS po daily METHYLPREDNISOLONE 4 MG ORAL TABS 439174 METHYLPREDNISOLONE Inactive OXYCODONE HCL ER 10 MG ORAL T12A 1/2 tab by mouth every 4 hours prn OXYCODONE HCL ER 10 MG ORAL T12A OXYCODONE HCL Inactive FLAGYL 500 MG TAB 1 tablet by mouth bid FLAGYL 500 MG TAB 736684 METRONIDAZOLE Inactive MONISTAT 7 COMBO PACK WOODROW 100 & 2 MG-% (9GM) VAG KIT 1 applicatorful per vagina q pm x 7 MONISTAT 7 COMBO PACK WOODROW 100 & 2 MG-% (9GM) VAG KIT MICONAZOLE NITRATE Inactive CEFDINIR 300 MG CAPS by mouth twice a day CEFDINIR 300 MG CAPS 015760 CEFDINIR Inactive PREDNISONE 20 MG TAB 2 tabs daily for 3 days, 1 tab daily for 3 days, 1/2 tab daily for 2 days PREDNISONE 20 MG TAB 899144 PREDNISONE Inactive BACTRIM DS 800-160 MG TABS 1 po BID x 7 days BACTRIM DS 800-160 MG TABS 19820521 SULFAMETHOXAZOLE-TRIMETHOPRIM Inactive DIFLUCAN 150 MG TABS 1 pill every other day x 2 doses DIFLUCAN 150 MG TABS 927750 FLUCONAZOLE Inactive BACTRIM DS 800-160 MG TABS 1 pill by mouth twice daily BACTRIM DS 800-160 MG TABS 19820521 SULFAMETHOXAZOLE-TRIMETHOPRIM Inactive KEFLEX 500 MG CAP 1 po TID x 10 days KEFLEX 500 MG CAP 123252 CEPHALEXIN Inactive Advance Directives Directive Description Start [...] % 11.6-14.8 platelet count 394 10^3/MM^3 10*3/mm3 670-790 1969/01/11 leukocyte count, blood 13.8 10^3/MM^3 10*3/mm3 4.6-10.2 [...] Panel - Chemistry sodium, serum 139 mmol/L 425-479 8354/12/03 carbon dioxide, venous blood 28.5 mmol/L 21.0-32.0 [...] 5.5 % 4.3-6.0 cholesterol, serum 159 mg/dL 815-971 2904/12/03 triglyceride, serum, fasting 118 mg/dL 30-200 HDL [...] 362 10^3/MM^3 10*3/mm3 142-424 Lab Report: Chlamydia/GC APTIMA/[id number] - Lab chlamydia DNA probe NOT DETECTED NOT DETECTED Lab Report: Chlamydia/GC [facility]/[id number] - Microbiology Neisseria gonorrhoeae DNA probe NOT DETECTED NOT DETECTED Lab Report: Comp. Metabolic Panel - Chemistry sodium, serum 140 mmol/L 945-090 3646/08/08 carbon dioxide, venous blood 33.7 mmol/L 21.0-32.0 potassium, serum 5.0 mmol/L 3.5-5.2 chloride, serum 103 mmol/L 98-107 blood glucose 80 mg/dL 65-110 urea nitrogen, blood 13 mg/dL 7-18 creatinine, serum 0.88 mg/dL 0.55-1.30 alanine aminotransferase (SGPT), serum 54 U/L - aspartate aminotransferase (SGOT), serum 29 U/L 15-37 calcium, serum 9.7 mg/dL 8.5-10.1 bilirubin, serum, total 0.30 mg/dL 0.00-1.00 sodium, serum 139 mmol/L 746-489 4465/12/22 carbon dioxide, venous blood 26.8 mmol/L 21.0-32.0 potassium, serum 4.2 mmol/L 3.5-5.2 chloride, serum 103 mmol/L 98-107 blood glucose 115 mg/dL 65-110 urea nitrogen, blood 20 mg/dL 7-18 creatinine, serum 0.90 mg/dL 0.55-1.30 alanine aminotransferase (SGPT), serum 38 U/L aspartate aminotransferase (SGOT), serum 19 U/L 15-37 calcium, serum 8.6 mg/dL 8.5-10.1 bilirubin, serum, total 0.30 mg/dL 0.00-1.00 sodium, serum 139 mmol/L 573-587 9946/01/11 carbon dioxide, venous blood 26.6 mmol/L 21.0-32.0 potassium, serum 4.1 mmol/L 3.5-5.2 chloride, serum 100 mmol/L 98-107 blood glucose 86 mg/dL 65-110 urea nitrogen, blood 16 mg/dL 7-18 creatinine, serum 1.00 mg/dL 0.55-1.30 alanine aminotransferase (SGPT), serum 48 U/L -78 aspartate aminotransferase (SGOT), serum 17 U/L 15-37 calcium, serum 9.1 mg/dL 8.5-10.1 bilirubin, serum, total 0.40 mg/dL 0.00-1.00 sodium, serum 142 mmol/L 214-561 6769/06/08 carbon dioxide, venous blood 27.6 mmol/L 21.0-32.0 [...] Rate - Chemistry sodium, serum 139 mmol/L 609-842 7274/12/11 carbon dioxide, venous blood 25.4 mmol/L 21.0-32.0 [...] mg/dL Encounters Code Encounter Date Provider Facility CPT-50768 Level 4 Est. Patient 14:45:00 [employer] S[employer]LE DRILLER Ahmet Carbajal MD [facility] CPT-13200 Level 3 Est. Patient 13:59:59 CDT Luigi Martínez [facility] CPT-69899 Level 3 Est. Patient 18:18:53 CDT Neeraj Collins MD [facility] CPT-17322 Level 3 Est. Patient 15:50:44 CDT Vishal Hui MD [facility] CPT-90492 Level 3 Est. Patient 11:36:17 CDT Ahmet Carbajal MD [facility] CPT-36747 Level 3 Est. Patient 13:29:16 CDT Vishal Hui MD [facility] CPT-79854 Level 3 Est. Patient 14:27:52 CDT Neeraj Collins MD [facility] CPT-79280 Level 3 Est. Patient 08:56:03 CDT Luigi Martínez [facility] CPT-23589 Level 4 Est. Patient 12:11:48 CDT Fabiola Johnson [facility] CPT-15546 Level 3 New Patient 16:53:37 CDT Albert Caldera MD [facility] CPT-65916 Level 3 Est. Patient 11:25:49 CDT Renzo Thornton DO [facility] CPT-15287 Level 3 Est. Patient 15:22:01 CDT Ahmet Carbajal MD [facility] CPT-88993 Level 4 Est. Patient 09:00:51 [employer] S[employer]LE DRILLER Vishal Hui MD [facility] CPT-82794 Level 3 Est. 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 Patient 08:41:09 BAL[employer] WHE[employer] SCREW HOLE DRILLER Vishal Hui MD [facility] CPT-70038 Level 4 Est. 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 Patient 13:35:45 CDT Vishal Hui MD [facility] CPT-55910 Level 4 Est. Patient 10:08:37 CDT Vishal Hui MD [facility] CPT-72415 Level 3 Est. Patient 11:22:10 CDT Vishal Hui MD [facility] CPT-40071 Level 3 Est. Patient 11:03:32 CDT Sahara Rodriguez MD [facility]-10697 Level 3 Est. Patient 09:41:35 CDT Vishal Hui MD [facility] CPT-32526 Level 3 Est. Patient 12:00:41 CDT Neeraj Collins MD [facility] CPT-79179 Level 3 Est. Patient 09:16:24 CDT Vishal Hui MD [facility] CPT-98885 Level 4 Est. Patient 13:59:09 CDT Neeraj Collins MD [facility] CPT-75761 Level 3 Est. Patient 15:19:43 CDT Renzo Thornton DO [facility] CPT-20033 Level 3 Est. Patient 18:10:26 CDT Sahara Rodriguez MD [facility]-94108 Level 3 Est. Patient 14:49:50 CDT Vishal Hui MD [facility] CPT-09360 Level 4 Est. Patient 18:41:46 CDT Neeraj Collins MD [facility] CPT-50490 Level 4 Est. Patient 09:18:38 BALANCE WHE[employer] SCREW HOLE DRILLER Vishal Hui MD [facility] CPT-53085 Level 3 Est. Patient 14:43:55 BAL[employer] WHE[employer] SCREW HOLE DRILLER Vishal Hui MD [facility] CPT-77854 Level 3 Est. Patient 15:26:33 BAL[employer] WHE[employer] SCREW HOLE DRILLER Sahara Rodriguez MD PhD [facility] CPT-19497 Level 3 Est. Patient 10:32:14 BAL[employer] WHE[employer] SCREW HOLE DRILLER Vishal Hui MD [facility] CPT-63253 Level 3 Est. Patient 15:12:52 [employer] WHE[employer] SCREW HOLE DRILLER Vishal Hui MD [facility] CPT-18828 Level 4 Est. Patient 09:19:27 CDT Vishal Hui MD [facility] CPT-98009 Level 3 Est. Patient 15:53:00 CDT Renzo Thornton [facility] CPT-18278 Level 3 Est. Patient 15:50:30 CDT Renzo Thornton [facility] CPT-31106 Level 3 Est. Patient 16:55:24 CDT Vishal Hui MD [facility] Procedures Code Procedure Name Date Entry Date Standard Description CPT-00656 Abx/Therapy Injection 17:34:30 [employer]ER CPT-25246 Nexplanon Removal with Reinsertion 14:09:32 CDT CPT-J7307 Nexplanon (Implant) 14:09:32 CDT CPT-OV Office Visit 14:09:32 CDT CPT-83780 UA w micro - LAB USE ONLY 16:21:13 CDT CPT-93499 Wet Mount - LAB USE ONLY 16:21:13 CDT CPT-06670 First Vx - Ix admin for Medicare patients 14:37:47 CDT CPT-02008 Fluzone Preservative Free Intramuscular Suspension 14:37 :47 CDT CPT-23460 Abx/Therapy Injection 13:54:22 CDT CPT-64889 Abx/Therapy Injection 08:47:09 CDT CPT-97657 Abx/Therapy Injection 13:29:56 CDT CPT-45014 Abx/Therapy Injection 08:36:16 CDT CPT-78299 Wet Mount - LAB USE ONLY 17:44:58 CDT CPT-29394 UA w micro - LAB USE ONLY 17:44:58 CDT CPT-58086 CMP - LAB USE ONLY 17:44:58 CDT CPT-55901 Venipuncture Draw Fee 17:44:58 CDT CPT-33634 Cervical Min 4V - XRAY USE ONLY 09:01:40 CDT CPT-00110 Chest 2V Frontal and Lat - XRAY USE ONLY 11:06:31 CDT CPT-85571 EKG Trac and Interp - XRAY USE ONLY 11:31:43 CDT 08/26 CPT-J3420 Vitamin B12 1000mcg (Cyanocobalamin) 08:10:26 [employer] 04/12 CPT-57748 Abx/Therapy Injection 08:10:26 [employer] CPT-G0438 Initial Annual Wellness Exam 19:01:01 [employer] CPT-J3420 Vitamin B12 1000mcg (Cyanocobalamin) 16:57:46 CDT 08/14 CPT-54430 Recombivax HB Injection Suspension 5 MCG/0.5ML 08:37:50 [employer] CPT-65091 Immunization Single Admin 08:37:50 [employer] CPT-J3420 Vitamin B12 1000mcg (Cyanocobalamin) 08:32:16 [employer] 03/11 CPT-56331 Abx/Therapy Injection 08:32:16 [employer] CPT-16271 Chest 2V Frontal and Lat 11:46:38 [employer] CPT-08521 Venipuncture Draw Fee 09:12:45 [employer] CPT-J3420 Vitamin B12 1000mcg (Cyanocobalamin) 08:50:15 [employer] 02/08 CPT-35062 Abx/Therapy Injection 08:50:15 [employer] CPT-Cryo Cryotherapy 10:19:35 [employer] CPT-000 Give Appropriate Flu Vaccine 09:22:16 CDT CPT-J3420 Vitamin B12 1000mcg (Cyanocobalamin) 19:08:57 CDT 01/11 CPT-96638 Abx/Therapy Injection 19:08:57 CDT CPT-J3420 Vitamin B12 1000mcg (Cyanocobalamin) 08:19:08 CDT 12/11 CPT-69434 Abx/Therapy Injection 08:19:08 CDT CPT-J3420 Vitamin B12 1000mcg (Cyanocobalamin) 14:48:00 CDT 11/09 CPT-20874 Abx/Therapy Injection 14:47:59 CDT CPT-J3420 Vitamin B12 1000mcg (Cyanocobalamin) 08:34:04 CDT 10/09 CPT-85773 Abx/Therapy Injection 08:34:04 CDT CPT-J3420 Vitamin B12 1000mcg (Cyanocobalamin) 09:18:52 CDT 09/11 CPT-95537 Abx/Therapy Injection 09:18:52 CDT CPT-J3420 Vitamin B12 1000mcg (Cyanocobalamin) 08:35:44 CDT 09/04 CPT-32586 Abx/Therapy Injection 08:35:44 CDT CPT-45310 Immunization Single Admin 11:07:16 CDT CPT-87029 Hepatitis B adult IM 11:07:16 CDT CPT-J3420 Vitamin B12 1000mcg (Cyanocobalamin) 11:00:49 CDT 08/28 CPT-J1040 Depo Medrol 80 mg (Methyl Prednisolone Acetate) 11:00: 49 CDT CPT-51015 Abx/Therapy Injection 11:00:49 CDT CPT-J1040 Depo Medrol 80 mg (Methyl Prednisolone Acetate) 09:16: 23 CDT CPT-J3420 Vitamin B12 1000mcg (Cyanocobalamin) 08:27:05 CDT 08/20 CPT-19463 Abx/Therapy Injection 08:27:05 CDT CPT-32216 Recombivax HB Injection Suspension 5 MCG/0.5ML 10:00:41 CDT CPT-49790 Administration single or combination vaccine inc oral 10 :00:41 CDT CPT-10742 Sono transvag pelvis non OB uterus ovaries cervix 16:36: 57 CDT CPT-89772 LS spine comp w obliq 09:50:55 [employer] CPT-86408 Abd compl w upright 09:50:55 [employer] CPT-J1100 Decadron 4mg (Dexamethasone) 15:51:24 [employer] CPT-J1030 Depo Medrol 40 mg (Methyl Prednisolone Acetate) 15:51: 24 [employer] CPT-14745 Abx/Therapy Injection 15:51:24 [employer] CPT-J1100 Decadron 4mg (Dexamethasone) 15:26:33 [employer] CPT-J1030 Depo Medrol 40 mg (Methyl Prednisolone Acetate) 15:26: 33 [employer] CPT-98136 Sono retroperitoneal complete kidneys and bladder 17:15: 30 CDT CPT-41894 Abd compl w upright 16:09:25 CDT CPT-J1100 Decadron 8mg (Dexamethasone) 17:07:57 CDT CPT-78467 Abx/Therapy Injection 17:07:57 CDT CPT-J1100 Decadron 8mg (Dexamethasone) 16:55:24 CDT CPT-06774 Chest 2V Frontal and Lat 16:32:44 CDT
--- OUTSIDE RECORDS SUMMARY | 2016-11-04 22:34 | XMS REPORT ---
Author Author [facility] Medical Staff Organization [facility] Address [address] [place], [place] [id number] Phone [phone] Care Team Providers Care Sap Basis Consultant Name Role Phone TINO ABRAMS MD PP [phone] Summary purpose TRANSITION OF CARE AUTO GENERATION [...] Code Type Description Date Performed Performing Physician [id number] ICD10 Repair Left Hand Skin, External Approach A9270 CPT-4 NON-COVERED ITEM OR SERVICE 01-28-2015 AMY SCHULZ 16810 CPT-4 EMERGENCY DEPT VISIT 01-28-2015 AMY SCHULZ 80110 CPT-4 IMMUNIZATION ADMIN 01-28-2015 AMY SCHULZ 26321 CPT-4 RPR S/N/AX/GEN/TRNK2.6-7.5CM 01-28-2015 AMY SCHULZ 15112 CPT-4 RPR S/N/AX/GEN/TRNK2.6-7.5CM 01-28-2015 AMY SCHULZ Functional status Functional Status Finding Observation Time Abdomen Appearance round [id number] Abdomen non-tender :15 Vick no :15 Urination [...]
--- OUTSIDE RECORDS SUMMARY | 2016-11-04 22:37 | XMS REPORT | Clinical Summary ---
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 Juliet Kimbrough CORPORATE QUALITY ASSURANCE MANAGER Dependence on other enabling machines and [...] Nocturnal hypoxia 799.02 Active Fabiola Johnson CORPORATE QUALITY ASSURANCE MANAGER Hypoxemia Neck pain 723.1 Resolved Vishal [...] Active Ahmet Carbajal MD Generalized anxiety disorder Fine Wire Drawer well woman exam V72.31 Active Suzan Boo CORPORATE QUALITY ASSURANCE MANAGER Routine gynecological examination Bronchitis, acute with mild bronchospasm 466.0 Active Suzan Boo CORPORATE QUALITY ASSURANCE MANAGER Acute bronchitis Fibrocystic breast changes 610.1 Active Suzan Boo APRN Diffuse cystic 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 Suzan Boo CORPORATE QUALITY ASSURANCE MANAGER Other specified conditions influencing health status Anxiety [...] SOLN 1 drop PRN eye spasms TROPICAMIDE 87209592220 Active Samantha Stephan RMA Active RISPERDAL 4 MG ORAL TABS 1 tab at bedtime RISPERIDONE 15607994444 Active Samantha Stephan RMA Active LEVAQUIN 500 MG TABS 1 daily for infection LEVOFLOXACIN 86594891876 Active Suzan Boo APRN Active TESSALON PERLES 100 MG CAPS 1 three times a day as needed for cough BENZONATATE 88898879275 Active Suzan Boo APRN Active ZOFRAN 4 MG TABS 1 po q6hr PRN Nausea ONDANSETRON HCL No Longer Active Suzan Boo APRN Active FLUTICASONE PROPIONATE 50 MCG/ACT SUSP 2 sprays each nostril daily before bed. FLUTICASONE PROPIONATE 11983254717 No Longer Active Suzan Boo APRN Active ASPIRIN 325 MG ORAL TABS 1 tab q.d ASPIRIN 55782588332 No Longer Active Suzan Boo APRN Active HALOPERIDOL 10 MG ORAL TABS 1 tab q.d HALOPERIDOL 42827247891 No Longer Active Suzan Boo APRN Active GUAIFENESIN-CODEINE 100-10 MG/5ML SYRP 5ml every 4 to 6 hours as needed for cough GUAIFENESIN-CODEINE 29328121752 No Longer Active Suzan Boo APRN Active ZITHROMAX Z-EARNEST 250 MG TABS 2 today and then 1 daily for 4 days AZITHROMYCIN 12546847910 No Longer Active Suzan Boo APRN Active PREDNISONE 10 MG TABS 2 daily for 5 days then 1 daily for 5 days PREDNISONE 87629741081 Active Suzan Boo APRN Active CLONAZEPAM 1 MG ORAL TABS 1 twice a day and an additional 1 tablet every other day as needed for pseudoseizures or anxiety CLONAZEPAM 35483350852 Active Ahmet Carbajal MD Active HYDROCODONE-ACETAMINOPHEN 5-325 MG ORAL TABS 1 tab two times a day HYDROCODONE-ACETAMINOPHEN 99208281602 No Longer Active Ahmet Carbajal MD Active LAMICTAL 100 MG ORAL TABS 1 tab 2 times qd. LAMOTRIGINE 04260902777 Active Ahmet Carbajal MD Active PREDNISONE 20 MG TABS 2 daily for 5 days then 1 daily for 5 days PREDNISONE 44056422776 No Longer Active Ahmet Carbajal MD Active FLUTICASONE PROPIONATE 50 MCG/ACT SUSP 1 to 2 sprays each nostril daily for allergies FLUTICASONE PROPIONATE 45782265059 Active Tila Valenzuela Active BENADRYL 25 MG CAP 4 po at bedtime for insomnia DIPHENHYDRAMINE HCL 08450668209 No Longer Active Ahmet Carbajal MD Active ADVAIR DISKUS 250-50 MCG/DOSE INH AEPB 1 puff twice a day for asthma FLUTICASONE-SALMETEROL 48791059764 No Longer Active Ahmet Carbajal MD Active KLONOPIN 1 MG ORAL TABS 1 tab po TID CLONAZEPAM 25682826580 No Longer Active Ahmet Carbajal MD Active ABILIFY MAINTENA 400 MG IM SUSR 400mg injection every 26 days ARIPIPRAZOLE 72822788371 No Longer Active Ahmet Carbajal MD Active TRAMADOL HCL 50 MG TABS 1/2-1 tab TID PRN TRAMADOL HCL 09329954355 No Longer Active Ahmet Carbajal MD Active BACTRIM DS 800-160 MG TABS 1 twice a day SULFAMETHOXAZOLE- TRIMETHOPRIM 38557828180 No Longer Active Ahmet Carbajal MD Active PROAIR HFA 108 (90 BASE) MCG/ACT AERS 2 puffs four times a day as needed 2015 ALBUTEROL SULFATE 78365948327 Active Ahmet Carbajal MD Active EQ NICOTINE 21 MG/24HR TRANS PT24 Apply daily to stop smoking NICOTINE 70307557764 Active Ahmet Carbajal MD Active MONISTAT 7 COMBO PACK WOODROW 100 & 2 MG-% (9GM) VAG KIT 1 applicatorful per vagina q pm x 7 MICONAZOLE NITRATE 48592064506 No Longer Active Ahmet Carbajal MD Active FLAGYL 500 MG TAB 1 tablet by mouth bid METRONIDAZOLE 01570462109 No Longer Active Ahmet Carbajal MD Active OXYCODONE HCL ER 10 MG ORAL T12A 1/2 tab by mouth every 4 hours prn OXYCODONE HCL 94360094058 No Longer Active Ahmet Carbajal MD Active METHYLPREDNISOLONE 4 MG ORAL TABS po daily METHYLPREDNISOLONE 54922147319 No Longer Active Ahmet Carbajal MD Active LEVOFLOXACIN 500 MG ORAL TABS po daily LEVOFLOXACIN 10263950865 No Longer Active Ahmet Carbajal MD Active VIIBRYD 10 MG ORAL TABS Take 1 tablet once a day VILAZODONE HCL 31998550077 No Longer Active Ahmet Carbajal MD Active TOPAMAX 50 MG ORAL TABS 1 tab twice daily TOPIRAMATE 88725021469 No Longer Active Ahmet Carbajal MD Active DICLOFENAC SODIUM 50 MG TBEC 1 tablet by mouth four times daily PRN Pain 2015 DICLOFENAC SODIUM 53583084549 No Longer Active Ahmet Carbajal MD Active ADZENYS XR-ODT 6.3 MG ORAL TBED 1 tab po daily for ADHD AMPHETAMINE 70803093119 No Longer Active Ahmet Carbajal MD Active CHANTIX 1 MG TABS 1 twice a day to help quit smoking VARENICLINE TARTRATE 47129927252 No Longer Active Dipika Burgos MD Active CHANTIX STARTING MONTH EARNEST 0.5 MG X 11 & 1 MG X 42 TABS take as directed 2015 VARENICLINE TARTRATE 99811416111 No Longer Active Dipika Burgos MD Active TESSALON PERLES 100 MG CAP 1 to 2 tablets by mouth 3 times daily as needed for cough BENZONATATE 97622705918 No Longer Active Luigi Martínez APRN Active IMITREX 50 MG ORAL TABS 0.5 po x 1 PRN Headache. May repeat dose x 1 in 2 hours if needed SUMATRIPTAN SUCCINATE 58192377535 Active Ahmet Carbajal MD Active HYDROCODONE-ACETAMINOPHEN 5-325 MG TABS 1 to 2 four times a day as needed for pain use until can be seen by specialist HYDROCODONE- ACETAMINOPHEN 40871102659 No Longer Active Vishal Hui MD Active PROAIR HFA 108 (90 BASE) MCG/ACT AERS 2 puffs four times a day as needed 2015 ALBUTEROL SULFATE 29840318138 No Longer Active Vishal Hui MD Active PREDNISONE 20 MG TABS 2 daily for 5 days then 1 daily for 5 days PREDNISONE 14020198152 No Longer Active Vishal Hui MD Active ZITHROMAX Z-EARNEST 250 MG TABS 2 today and then 1 daily for 4 days AZITHROMYCIN 63747670706 No Longer Active Vishal Hui MD Active DICLOFENAC POTASSIUM TABS Take 1 tablet twice a day (pt. is not sure of the dose.) DICLOFENAC POTASSIUM TABS 46167296561 No Longer Active Vishal Hui MD Active VERAPAMIL HCL ER 120 MG ORAL CR-TABS Take 1 tablet by mouth twice a day. VERAPAMIL HCL 60911161979 Active Vishal Hui MD Active FLAGYL 500 MG TAB 1 tablet by mouth bid METRONIDAZOLE 96442715628 No Longer Active Vishal Hui MD Active VALIUM 5 MG TAB Take 1-2 tablets daily DIAZEPAM 01070106452 No Longer Active Fabiola Johnson APRN Active METOPROLOL TARTRATE 25 MG ORAL TABS 1/2 tablet twice daily for heart rate and blood pressure METOPROLOL TARTRATE 37556177072 No Longer Active Fabiola Johnson APRN Active MIRALAX ORAL POWD 17GMS DAILY IN WATER POLYETHYLENE GLYCOL 3350 04086514830 Active TAMARA Casey Active MIRALAX PACK 1 po qd PRN Constipation POLYETHYLENE GLYCOL 3350 39767375139 No Longer Active Ahmet Carbajal MD Active MINIPRESS 2 MG CAPS 4 cap po at night PRAZOSIN HCL 81862693037 No Longer Active Ahmet Carbajal MD Active PIROXICAM 20 MG CAPS 1 cap po qd PRN Pain PIROXICAM 74903368884 No Longer Active Ahmet Carbajal MD Active TRAMADOL HCL 50 MG TABS 1-2 po TID PRN Pain TRAMADOL HCL 66922832870 No Longer Active Ahmet Carbajal MD Active METOPROLOL TARTRATE 50 MG TAB 1 po bid METOPROLOL TARTRATE 79488242251 No Longer Active Ahmet Carbajal MD Active ABILIFY 15 MG ORAL TABS 1 tab daily ARIPIPRAZOLE 92441697844 No Longer Active Ahmet Carbajal MD Active PROZAC 20 MG ORAL CAPS 1 tab daily FLUOXETINE HCL 20559131257 No Longer Active Ahmet Carbajal MD Active AMBIEN 5 MG ORAL TABS 1 tab at bedtime ZOLPIDEM TARTRATE 89872649979 No Longer Active Ahmet Carbajal MD Active PREDNISONE 20 MG TAB 2 tabs daily for 4 days, 1 tab daily for 4 days, 1/2 tab daily for 4 days PREDNISONE 18967354571 No Longer Active Ahmet Carbajal MD Active KEFLEX 500 MG CAP 1 po TID x 10 days CEPHALEXIN 97520583058 No Longer Active Vishal Hui MD Active SAPHRIS 5 MG SUBL 1 po bid ASENAPINE MALEATE 39135953782 No Longer Active Jillina Frazell CORPORATE QUALITY ASSURANCE MANAGER Active LATUDA 80 MG TABS Take one by mouth daily LURASIDONE HCL 04458039942 No Longer Active Jillina Frazell CORPORATE QUALITY ASSURANCE MANAGER Active AMLODIPINE BESYLATE 5 MG TABS 1 tablet by mouth daily AMLODIPINE BESYLATE 69431780715 No Longer Active Jillina Frazell CORPORATE QUALITY ASSURANCE MANAGER Active AMITRIPTYLINE HCL 100 MG TAB one at hs AMITRIPTYLINE HCL 85365244880 No Longer Active Vishal Hui MD Active TRAZODONE HCL 100 MG TAB take 1 at bedtime TRAZODONE HCL 67255845398 No Longer Active Vishal Hui MD Active VYVANSE 40 MG CAPS 1 daily, LISDEXAMFETAMINE DIMESYLATE 91954340718 No Longer Active Vishal Hui MD Active IBUPROFEN 600 MG TAB 1 po TID PRN IBUPROFEN 30244177459 No Longer Active Vishal Hui MD Active PROZAC 20 MG CAP Take one by mouth daily FLUOXETINE HCL 79775215744 No Longer Active Vishal Hui MD Active BACTRIM DS 800-160 MG TABS 1 pill by mouth twice daily SULFAMETHOXAZOLE-TRIMETHOPRIM 15228630126 No Longer Active Sahara Rodriguez MD PhD Active DIFLUCAN 150 MG TAB 1 tablet by mouth daily FLUCONAZOLE 80033615106 No Longer Active Vishal Hui MD Active TIZANIDINE HCL 4 MG TABS 1 po q6hr PRN Muscle Spasm/Back Pain TIZANIDINE HCL 98102251339 Active Vishal Hui MD Active CLINDAMYCIN HCL 150 MG CAPS 1 four times a day CLINDAMYCIN HCL 89534325075 No Longer Active Neeraj Collins MD Active KEFLEX 500 MG ORAL CAPS 1 cap QID by mouth CEPHALEXIN 99359637743 No Longer Active Neeraj Collins MD Active DIFLUCAN 150 MG TABS 1 pill every other day x 2 doses FLUCONAZOLE 45378527448 No Longer Active Sahara Rodriguez MD PhD Active MELATONIN 3 MG CAPS 2 po q hs MELATONIN 82210864661 No Longer Active Sahara Rodriguez MD PhD Active MULTIVITAMINS CAPS Take one by mouth daily MULTIPLE VITAMIN 04964115213 No Longer Active Sahara Rodriguez MD PhD Active BACTRIM DS 800-160 MG TAB 1 tab by mouth twice daily TRIMETHOPRIM-SULFAMETHOXAZOLE 80497134309 No Longer Active Sahara Rodriguez MD PhD Active [facility] PROBIOTIC ORAL CHEW 2 daily po PROBIOTIC PRODUCT 35955911290 No Longer Active Sahara Rodriguez MD PhD Active BACTRIM DS 800-160 MG TABS 1 po BID x 7 days SULFAMETHOXAZOLE-TRIMETHOPRIM 88378899228 No Longer Active Vishal Hui MD Active CHANTIX STARTING MONTH EARNEST 0.5 MG X 11 & 1 MG X 42 TABS 0.5mg daily for 3 days , then 0.5mg BID for 4 days, then 1mg BID VARENICLINE TARTRATE 95380223534 No Longer Active TAMARA Gray Active VERAPAMIL HCL CR 120 MG TAB CR 1 po bid VERAPAMIL HCL 22041493700 No Longer Active Vishal Hui MD Active METOPROLOL SUCCINATE 50 MG TB24 1 tablet by mouth daily METOPROLOL SUCCINATE 58365537400 No Longer Active Vishal Hui MD Active SAPHRIS 10 MG SUBL 1 tab po bid ASENAPINE MALEATE 47812021953 No Longer Active Vishal Hui MD Active LISINOPRIL 20 MG TABS 1 tab po qd LISINOPRIL 53475869411 No Longer Active Vishal Hui MD Active LATUDA 20 MG TABS Take one by mouth daily LURASIDONE HCL 22815624534 No Longer Active Vishal Hui MD Active TRAZODONE HCL 50 MG TABS 1/2 tab po qd prn for anxiety TRAZODONE HCL 55026822766 No Longer Active Vishal Hui MD Active OMEPRAZOLE 20 MG TBEC 1 po q a.m. 30min prior to first food intake OMEPRAZOLE 07122009422 Active Vishal Hui MD Active RANITIDINE HCL 150 MG CAPS 1 twice a day RANITIDINE HCL 95829405486 Active Luigi Martínez APRN Active LINZESS 290 MCG CAPS Take one by mouth daily LINACLOTIDE 85402840243 No Longer Active Vishal Hui MD Active SAPHRIS 5 MG SUBL 1 tab po qd ASENAPINE MALEATE 07199962458 No Longer Active Vishal Hui MD Active ZALEPLON 10 MG CAPS 1 cap po every other night ZALEPLON 09882788030 No Longer Active Vishal Hui MD Active LYRICA 50 MG CAPS 1 tab po TID PREGABALIN 96935841325 No Longer Active Vishal Hui MD Active LORATADINE 10 MG TABS 1 tab po qd LORATADINE 81962855841 No Longer Active Vishal Hui MD Active VERAPAMIL HCL ER 180 MG CR-TABS 1 tab po bid VERAPAMIL HCL 47459588819 No Longer Active Vishal Hui MD Active MIRALAX POWD 1 capfull once daily POLYETHYLENE GLYCOL 3350 44228830135 No Longer Active Vishal Hui MD Active PREDNISONE 20 MG TABS 1 tab po qd PREDNISONE 02203401673 No Longer Active Renzo Thornton DO Active LEVOFLOXACIN 500 MG TABS 1 tab po qd LEVOFLOXACIN 22724959267 No Longer Active Renzo Thornton DO Active BUSPIRONE HCL 15 MG TABS 1 tab po TID BUSPIRONE HCL 86819451252 No Longer Active Renzo Thornton DO Active BENZTROPINE MESYLATE 1 MG TABS 1 tab po qd BENZTROPINE MESYLATE 37116485577 No Longer Active Renzo Thornton DO Active ATENOLOL 25 MG TABS 1 tab po qd ATENOLOL 59510104623 No Longer Active Renzo Thornton DO Active ESCITALOPRAM OXALATE 20 MG TABS 1 tab po qd ESCITALOPRAM OXALATE 88872374888 No Longer Active Renzo Thornton DO Active ADVAIR DISKUS 250-50 MCG/DOSE AEPB 1 puff BID FLUTICASONE-SALMETEROL 06911231832 No Longer Active Renzo Thornton DO Active PREDNISONE 20 MG TAB 2 tabs daily for 3 days, 1 tab daily for 3 days, 1/2 tab daily for 2 days PREDNISONE 67470866742 No Longer Active Vishal Hui MD Active CEFDINIR 300 MG CAPS by mouth twice a day CEFDINIR 69176850815 No Longer Active Vishal Hui MD Active LANSOPRAZOLE 30 MG CPDR 1 cap po qd LANSOPRAZOLE 12189574331 No Longer Active Vishal Hui MD Active BACLOFEN 20 MG TABS 1 tab po tid BACLOFEN 31830874300 No Longer Active Vishal Hui MD Active ADVAIR DISKUS 250-50 MCG/DOSE AEPB 1 puff BID ADVAIR DISKUS 250-50 MCG/DOSE AEPB FLUTICASONE-SALMETEROL Inactive ESCITALOPRAM OXALATE 20 MG TABS 1 tab po qd ESCITALOPRAM OXALATE 20 MG TABS 980529 ESCITALOPRAM OXALATE Inactive ATENOLOL 25 MG TABS 1 tab po qd ATENOLOL 25 MG TABS 980687 ATENOLOL Inactive BENZTROPINE MESYLATE 1 MG TABS 1 tab po qd BENZTROPINE MESYLATE 1 MG TABS 086957 BENZTROPINE MESYLATE Inactive BUSPIRONE HCL 15 MG TABS 1 tab po TID BUSPIRONE HCL 15 MG TABS 970317 BUSPIRONE HCL Inactive LEVOFLOXACIN 500 MG TABS 1 tab po qd LEVOFLOXACIN 500 MG TABS 122412 LEVOFLOXACIN Inactive PREDNISONE 20 MG TABS 1 tab po qd PREDNISONE 20 MG TABS 365982 PREDNISONE Inactive MIRALAX POWD 1 capfull once daily MIRALAX POWD 501318 POLYETHYLENE GLYCOL 3350 Inactive VERAPAMIL HCL ER 180 MG CR-TABS 1 tab po bid VERAPAMIL HCL ER 180 MG CR-TABS VERAPAMIL HCL Inactive LORATADINE 10 MG TABS 1 tab po qd LORATADINE 10 MG TABS 898276 LORATADINE Inactive LYRICA 50 MG CAPS 1 tab po TID LYRICA 50 MG CAPS PREGABALIN Inactive ZALEPLON 10 MG CAPS 1 cap po every other night ZALEPLON 10 MG CAPS 698355 ZALEPLON Inactive SAPHRIS 5 MG SUBL 1 tab po qd SAPHRIS 5 MG SUBL ASENAPINE MALEATE Inactive TRAZODONE HCL 50 MG TABS 1/2 tab po qd prn for anxiety TRAZODONE HCL 50 MG TABS 625609 TRAZODONE HCL Inactive LATUDA 20 MG TABS Take one by mouth daily LATUDA 20 MG TABS LURASIDONE HCL Inactive LISINOPRIL 20 MG TABS 1 tab po qd LISINOPRIL 20 MG TABS 942025 LISINOPRIL Inactive SAPHRIS 10 MG SUBL 1 [...] twice daily BACTRIM DS 800-160 MG TAB 047719 TRIMETHOPRIM-SULFAMETHOXAZOLE Inactive MULTIVITAMINS CAPS Take one by mouth daily MULTIVITAMINS CAPS MULTIPLE VITAMIN Inactive MELATONIN 3 MG CAPS 2 po q hs MELATONIN 3 MG CAPS 536190 MELATONIN Inactive KEFLEX 500 MG ORAL CAPS 1 cap QID by mouth KEFLEX 500 MG ORAL CAPS 639137 CEPHALEXIN Inactive CLINDAMYCIN HCL 150 MG CAPS 1 four times a day CLINDAMYCIN HCL 150 MG CAPS 190074 CLINDAMYCIN HCL Inactive DIFLUCAN 150 MG TAB 1 tablet by mouth daily DIFLUCAN 150 MG TAB 084940 FLUCONAZOLE Inactive PROZAC 20 MG CAP Take one by mouth daily PROZAC 20 MG CAP 518423 FLUOXETINE HCL Inactive IBUPROFEN 600 MG TAB 1 po TID PRN IBUPROFEN 600 MG TAB 916921 IBUPROFEN Inactive VYVANSE 40 MG CAPS 1 daily, VYVANSE 40 MG CAPS LISDEXAMFETAMINE DIMESYLATE Inactive TRAZODONE HCL 100 MG TAB take 1 at bedtime TRAZODONE HCL 100 MG TAB 769367 TRAZODONE HCL Inactive AMITRIPTYLINE HCL 100 MG TAB one at hs AMITRIPTYLINE HCL 100 MG TAB 476216 AMITRIPTYLINE HCL Inactive AMLODIPINE BESYLATE 5 MG TABS 1 tablet by mouth daily AMLODIPINE BESYLATE 5 MG TABS 368536 AMLODIPINE BESYLATE Inactive LATUDA 80 MG TABS Take one by mouth daily LATUDA 80 MG TABS LURASIDONE HCL Inactive SAPHRIS 5 MG SUBL 1 po bid SAPHRIS 5 MG SUBL ASENAPINE MALEATE Inactive PREDNISONE 20 MG TAB 2 tabs daily for 4 days, 1 tab daily for 4 days, 1/2 tab daily for 4 days PREDNISONE 20 MG TAB 183383 PREDNISONE Inactive AMBIEN 5 MG ORAL TABS 1 tab at bedtime AMBIEN 5 MG ORAL TABS 564246 ZOLPIDEM TARTRATE Inactive PROZAC 20 MG ORAL CAPS 1 tab daily PROZAC 20 MG ORAL CAPS 525223 FLUOXETINE HCL Inactive ABILIFY 15 MG ORAL TABS 1 tab daily ABILIFY 15 MG ORAL TABS 256561 ARIPIPRAZOLE Inactive METOPROLOL TARTRATE 50 MG TAB 1 po bid METOPROLOL TARTRATE 50 MG TAB 214005 METOPROLOL TARTRATE Inactive TRAMADOL HCL 50 MG TABS 1-2 po TID PRN Pain TRAMADOL HCL 50 MG TABS 237189 TRAMADOL HCL Inactive PIROXICAM 20 MG CAPS 1 cap po qd PRN Pain PIROXICAM 20 MG CAPS 596605 PIROXICAM Inactive MINIPRESS 2 MG CAPS 4 cap po at night MINIPRESS 2 MG CAPS 700218 PRAZOSIN HCL Inactive MIRALAX PACK 1 po qd PRN Constipation MIRALAX PACK 560714 POLYETHYLENE GLYCOL 3350 Inactive METOPROLOL TARTRATE 25 MG ORAL TABS 1/2 tablet twice daily for heart rate and blood pressure METOPROLOL TARTRATE 25 MG ORAL TABS 515458 METOPROLOL TARTRATE Inactive VALIUM 5 MG TAB Take 1-2 tablets daily VALIUM 5 MG TAB 664180 DIAZEPAM Inactive FLAGYL 500 MG TAB 1 tablet by mouth bid FLAGYL 500 MG TAB 735464 METRONIDAZOLE Inactive DICLOFENAC POTASSIUM TABS Take 1 tablet twice a day (pt. is not sure of the dose.) DICLOFENAC POTASSIUM TABS DICLOFENAC POTASSIUM TABS Inactive ZITHROMAX Z-EARNEST 250 MG TABS 2 today and then 1 daily for 4 days ZITHROMAX Z-EARNEST 250 MG TABS 4694273 AZITHROMYCIN Inactive PREDNISONE 20 MG TABS 2 daily for 5 days then 1 daily for 5 days PREDNISONE 20 MG TABS 927496 PREDNISONE Inactive PROAIR HFA 108 (90 BASE) MCG/ACT AERS 2 puffs four times a day as needed 2015 PROAIR HFA 108 (90 BASE) MCG/ACT AERS ALBUTEROL SULFATE Inactive HYDROCODONE-ACETAMINOPHEN 5-325 MG TABS 1 to 2 four times a day as needed for pain use until can be seen by specialist HYDROCODONE- ACETAMINOPHEN 5-325 MG TABS 084753 HYDROCODONE-ACETAMINOPHEN Inactive TESSALON PERLES 100 MG CAP 1 to 2 tablets by mouth 3 times daily as needed for cough TESSALON PERLES 100 MG CAP 760207 BENZONATATE Inactive CHANTIX STARTING MONTH EARNEST 0.5 [...] Pain 2015 DICLOFENAC SODIUM 50 MG TBEC 647406 DICLOFENAC SODIUM Inactive TOPAMAX 50 MG ORAL TABS 1 tab twice daily TOPAMAX 50 MG ORAL TABS 328217 TOPIRAMATE Inactive VIIBRYD 10 MG ORAL TABS Take 1 tablet once a day VIIBRYD 10 MG ORAL TABS VILAZODONE HCL Inactive LEVOFLOXACIN 500 MG ORAL TABS po daily LEVOFLOXACIN 500 MG ORAL TABS 713249 LEVOFLOXACIN Inactive METHYLPREDNISOLONE 4 MG ORAL TABS po daily METHYLPREDNISOLONE 4 MG ORAL TABS 775330 METHYLPREDNISOLONE Inactive OXYCODONE HCL ER 10 MG ORAL T12A 1/2 tab by mouth every 4 hours prn OXYCODONE HCL ER 10 MG ORAL T12A OXYCODONE HCL Inactive FLAGYL 500 MG TAB 1 tablet by mouth bid FLAGYL 500 MG TAB 706389 METRONIDAZOLE Inactive MONISTAT 7 COMBO PACK WOODROW 100 & 2 MG-% (9GM) VAG KIT 1 applicatorful per vagina q pm x 7 MONISTAT 7 COMBO PACK WOODROW 100 & 2 MG-% (9GM) VAG KIT MICONAZOLE NITRATE Inactive BACTRIM DS 800-160 MG TABS 1 twice a day BACTRIM DS 800-160 MG TABS 063385 SULFAMETHOXAZOLE-TRIMETHOPRIM Inactive TRAMADOL HCL 50 MG TABS 1/2-1 tab TID PRN TRAMADOL HCL 50 MG TABS 286210 TRAMADOL HCL Inactive ABILIFY MAINTENA 400 MG IM SUSR 400mg injection every 26 days ABILIFY MAINTENA 400 MG IM SUSR ARIPIPRAZOLE Inactive KLONOPIN 1 MG ORAL TABS 1 tab po TID KLONOPIN 1 MG ORAL TABS 011290 CLONAZEPAM Inactive ADVAIR DISKUS 250-50 MCG/DOSE INH AEPB 1 puff twice a day for asthma ADVAIR DISKUS 250-50 MCG/DOSE INH AEPB FLUTICASONE- SALMETEROL Inactive BENADRYL 25 MG CAP 4 po at bedtime for insomnia BENADRYL 25 MG CAP DIPHENHYDRAMINE HCL Inactive PREDNISONE 20 MG TABS 2 daily for 5 days then 1 daily for 5 days PREDNISONE 20 MG TABS 359388 PREDNISONE Inactive HYDROCODONE-ACETAMINOPHEN 5-325 MG ORAL TABS 1 tab two times a day HYDROCODONE-ACETAMINOPHEN 5-325 MG ORAL TABS 683585 HYDROCODONE-ACETAMINOPHEN Inactive ZITHROMAX Z-EARNEST 250 MG TABS 2 today and then 1 daily for 4 days ZITHROMAX Z-EARNEST 250 MG TABS 5643632 AZITHROMYCIN Inactive GUAIFENESIN-CODEINE 100-10 MG/5ML SYRP 5ml every 4 to 6 hours as needed for cough GUAIFENESIN-CODEINE 100-10 MG/5ML SYRP 154934 GUAIFENESIN-CODEINE Inactive HALOPERIDOL 10 MG ORAL TABS 1 tab q.d HALOPERIDOL 10 MG ORAL TABS 789625 HALOPERIDOL Inactive ASPIRIN 325 MG ORAL TABS 1 tab q.d ASPIRIN 325 MG ORAL TABS 262275 ASPIRIN Inactive FLUTICASONE PROPIONATE 50 MCG/ACT SUSP 2 sprays each nostril daily before bed. FLUTICASONE PROPIONATE 50 MCG/ACT SUSP 4066877 FLUTICASONE PROPIONATE Inactive ZOFRAN 4 MG TABS 1 po q6hr PRN Nausea ZOFRAN 4 MG TABS 265440 ONDANSETRON HCL Inactive CEFDINIR 300 MG CAPS by mouth twice a day CEFDINIR 300 MG CAPS 774927 CEFDINIR Inactive PREDNISONE 20 MG TAB 2 tabs daily for 3 days, 1 tab daily for 3 days, 1/2 tab daily for 2 days PREDNISONE 20 MG TAB 810254 PREDNISONE Inactive BACTRIM DS 800-160 MG TABS 1 po BID x 7 days BACTRIM DS 800-160 MG TABS 19820521 SULFAMETHOXAZOLE-TRIMETHOPRIM Inactive DIFLUCAN 150 MG TABS 1 pill every other day x 2 doses DIFLUCAN 150 MG TABS 121792 FLUCONAZOLE Inactive BACTRIM DS 800-160 MG TABS 1 pill by mouth twice daily BACTRIM DS 800-160 MG TABS 19820521 SULFAMETHOXAZOLE-TRIMETHOPRIM Inactive KEFLEX 500 MG CAP 1 po TID x 10 days KEFLEX 500 MG CAP 194216 CEPHALEXIN Inactive Advance Directives Directive Description Start [...] 369 10^3/MM^3 10*3/mm3 142-424 Lab Report: Chlamydia/GC APTIMA/[id number] - Lab chlamydia DNA probe NOT DETECTED NOT DETECTED Lab Report: Chlamydia/GC APTIMA/[id number] - Microbiology Neisseria gonorrhoeae DNA probe NOT DETECTED NOT DETECTED Lab Report: Chlamydia/GC APTIMA/[id number], Urinalysis, Complete, with Reflex ... - Lab chlamydia DNA probe NOT DETECTED NOT DETECTED Lab Report: Chlamydia/GC APTIMA/[id number], Urinalysis, Complete, with Reflex ... - Microbiology Neisseria gonorrhoeae DNA probe NOT DETECTED NOT DETECTED Lab Report: Chlamydia/GC APTIMA/[id number], Urinalysis, Complete, with Reflex ... - Urinalysis microalbumin/total urine volume 2 mg/L Units converted. See lab report for original value. microalbumin/creatinine ratio, urine 9 MCG/MG CREAT mg/L <30 Lab Report: Comp. Metabolic Panel - Chemistry sodium, serum 142 mmol/L 983-525 6022/06/08 carbon dioxide, venous blood 27.6 mmol/L 21.0-32.0 potassium, serum 4.0 mmol/L 3.5-5.2 chloride, serum 105 mmol/L 98-107 blood glucose 95 mg/dL 65-110 urea nitrogen, blood 8 mg/dL 7-18 creatinine, serum 0.75 mg/dL 0.55-1.30 alanine aminotransferase (SGPT), serum 49 U/L -78 aspartate aminotransferase (SGOT), serum 28 U/L 15-37 calcium, serum 9.4 mg/dL 8.5-10.1 bilirubin, serum, total 0.30 mg/dL 0.00-1.00 sodium, serum 140 mmol/L 768-972 0598/08/08 carbon dioxide, venous blood 33.7 mmol/L 21.0-32.0 [...] mg/dL Encounters Code Encounter Date Provider Facility CPT-93159 Level 3 Est. Patient 15:28:23 GRINDING ROOM INSPECTOR Suzan Boo [facility] CPT-48548 Level 4 Est. Patient 10:20:54 GRINDING ROOM INSPECTOR Suzan Boo [facility] CPT-17225 Level 3 Est. Patient 11:47:37 GRINDING ROOM INSPECTOR Ahmet Carbajal MD [facility] CPT-22880 Level 3 Est. Patient 10:40:11 GRINDING ROOM INSPECTOR Ahmet Carbajal MD [facility] CPT-16716 Level 3 Est. Patient 15:07:06 GRINDING ROOM INSPECTOR Neeraj Collins MD [facility] CPT-19814 Level 4 Est. Patient 14:45:00 GRINDING ROOM INSPECTOR Ahmet Carbajal MD [facility] CPT-45248 Level 3 Est. Patient 13:59:59 CDT Luigi Martínez [facility] CPT-83386 Level 3 Est. Patient 18:18:53 CDT Neeraj Collins MD [facility] CPT-96042 Level 3 Est. Patient 15:50:44 CDT Vishal Hui MD [facility] CPT-70804 Level 3 Est. Patient 11:36:17 CDT Ahmet Carbajal MD [facility] CPT-93318 Level 3 Est. Patient 13:29:16 CDT Vishal Hui MD [facility] CPT-39164 Level 3 Est. Patient 14:27:52 CDT Neeraj Collins MD [facility] CPT-34345 Level 3 Est. Patient 08:56:03 CDT Luigi Martínez [facility] CPT-27474 Level 4 Est. Patient 12:11:48 CDT Fabiola Johnson [facility] CPT-72243 Level 3 New Patient 16:53:37 CDT Albert Caldera MD [facility] CPT-28210 Level 3 Est. Patient 11:25:49 CDT Renzo Thornton DO [facility] CPT-95670 Level 3 Est. Patient 15:22:01 CDT Ahmet Carbajal MD [facility] CPT-45428 Level 4 Est. Patient 09:00:51 GRINDING ROOM INSPECTOR Vishal Hui MD [facility] CPT-32820 Level 3 Est. Patient 11:37:33 GRINDING ROOM INSPECTOR Vishal Hui MD [facility] CPT-34851 Level 3 Est. Patient 08:41:09 GRINDING ROOM INSPECTOR Vishal Hui MD [facility] CPT-15700 Level 4 Est. Patient 10:19:35 GRINDING ROOM INSPECTOR Vishal Hui MD [facility] CPT-30600 Level 3 Est. Patient 13:35:45 CDT Vishal Hui MD [facility] CPT-75699 Level 4 Est. Patient 10:08:37 CDT Vishal Hui MD [facility] CPT-16741 Level 3 Est. Patient 11:22:10 CDT Vishal Hui MD [facility] CPT-40408 Level 3 Est. Patient 11:03:32 CDT Sahara Rodriguez MD [facility]-80688 Level 3 Est. Patient 09:41:35 CDT Vishal Hui MD [facility] CPT-51468 Level 3 Est. Patient 12:00:41 CDT Neeraj Collins MD [facility] CPT-94855 Level 3 Est. Patient 09:16:24 CDT Vishal Hui MD [facility] CPT-06757 Level 4 Est. Patient 13:59:09 CDT Neeraj Collins MD [facility] CPT-53075 Level 3 Est. Patient 15:19:43 CDT Renzo Thornton DO [facility] CPT-52204 Level 3 Est. Patient 18:10:26 CDT Sahara Rodriguez MD PhD [facility]-16399 Level 3 Est. Patient 14:49:50 CDT Vishal Hui MD [facility] CPT-35267 Level 4 Est. Patient 18:41:46 CDT Neeraj Collins MD [facility]-31322 Level 4 Est. Patient 09:18:38 GRINDING ROOM INSPECTOR Vishal Hui MD [facility] CPT-22166 Level 3 Est. Patient 14:43:55 GRINDING ROOM INSPECTOR Vishal Hui MD [facility] CPT-00583 Level 3 Est. Patient 15:26:33 GRINDING ROOM INSPECTOR Sahara Rodriguez MD [facility] CPT-06749 Level 3 Est. Patient 10:32:14 GRINDING ROOM INSPECTOR Vishal Hui MD [facility] CPT-26720 Level 3 Est. Patient 15:12:52 GRINDING ROOM INSPECTOR Vishal Hui MD [facility] CPT-84158 Level 4 Est. Patient 09:19:27 CDT Vishal Hui MD [facility] CPT-86710 Level 3 Est. Patient 15:53:00 CDT Renzo Thornton [facility] CPT-42024 Level 3 Est. Patient 15:50:30 CDT Renzo Thornton [facility] CPT-28540 Level 3 Est. Patient 16:55:24 CDT Vishal Hui MD [facility] Procedures Code Procedure Name Date Entry Date Standard Description CPT-G0439 [facility] Annual Wellness Exam 09:30:58 GRINDING ROOM INSPECTOR CPT-63633 TSH - LAB USE ONLY 08:50:26 GRINDING ROOM INSPECTOR CPT-32473 CBC - LAB USE ONLY 08:50:26 GRINDING ROOM INSPECTOR CPT-09868 Venipuncture Draw Fee 08:50:26 GRINDING ROOM INSPECTOR CPT-68465 Abx/Therapy Injection 17:34:30 GRINDING ROOM INSPECTOR CPT-63924 Nexplanon Removal with Reinsertion 14:09:32 CDT CPT-J7307 Nexplanon (Implant) 14:09:32 CDT CPT-OV Office Visit 14:09:32 CDT CPT-50861 UA w micro - LAB USE ONLY 16:21:13 CDT CPT-39501 Wet Mount - LAB USE ONLY 16:21:13 CDT CPT-65130 First Vx - Ix admin for Medicare patients 14:37:47 CDT CPT-87599 Fluzone Preservative Free Intramuscular Suspension 14:37 :47 CDT CPT-29214 Abx/Therapy Injection 13:54:22 CDT CPT-09027 Abx/Therapy Injection 08:47:09 CDT CPT-80452 Abx/Therapy Injection 13:29:56 CDT CPT-85034 Abx/Therapy Injection 08:36:16 CDT CPT-58898 Wet Mount - LAB USE ONLY 17:44:58 CDT CPT-80670 UA w micro - LAB USE ONLY 17:44:58 CDT CPT-21517 CMP - LAB USE ONLY 17:44:58 CDT CPT-61518 Venipuncture Draw Fee 17:44:58 CDT CPT-76575 Cervical Min 4V - XRAY USE ONLY 09:01:40 CDT CPT-67943 Chest 2V Frontal and Lat - XRAY USE ONLY 11:06:31 CDT CPT-27540 EKG Trac and Interp - XRAY USE ONLY 11:31:43 CDT 08/26 CPT-J3420 Vitamin B12 1000mcg (Cyanocobalamin) 08:10:26 GRINDING ROOM INSPECTOR 04/12 CPT-94791 Abx/Therapy Injection 08:10:26 GRINDING ROOM INSPECTOR CPT-G0438 Initial Annual Wellness Exam 19:01:01 GRINDING ROOM INSPECTOR CPT-J3420 Vitamin B12 1000mcg (Cyanocobalamin) 16:57:46 CDT 08/14 CPT-70703 Recombivax HB Injection Suspension 5 MCG/0.5ML 08:37:50 GRINDING ROOM INSPECTOR CPT-73669 Immunization Single Admin 08:37:50 GRINDING ROOM INSPECTOR CPT-J3420 Vitamin B12 1000mcg (Cyanocobalamin) 08:32:16 GRINDING ROOM INSPECTOR 03/11 CPT-36846 Abx/Therapy Injection 08:32:16 GRINDING ROOM INSPECTOR CPT-02225 Chest 2V Frontal and Lat 11:46:38 GRINDING ROOM INSPECTOR CPT-04750 Venipuncture Draw Fee 09:12:45 GRINDING ROOM INSPECTOR CPT-J3420 Vitamin B12 1000mcg (Cyanocobalamin) 08:50:15 GRINDING ROOM INSPECTOR 02/08 CPT-16701 Abx/Therapy Injection 08:50:15 GRINDING ROOM INSPECTOR CPT-Cryo Cryotherapy 10:19:35 GRINDING ROOM INSPECTOR CPT-000 Give Appropriate Flu Vaccine 09:22:16 CDT CPT-J3420 Vitamin B12 1000mcg (Cyanocobalamin) 19:08:57 CDT 01/11 CPT-97210 Abx/Therapy Injection 19:08:57 CDT CPT-J3420 Vitamin B12 1000mcg (Cyanocobalamin) 08:19:08 CDT 12/11 CPT-60037 Abx/Therapy Injection 08:19:08 CDT CPT-J3420 Vitamin B12 1000mcg (Cyanocobalamin) 14:48:00 CDT 11/09 CPT-07261 Abx/Therapy Injection 14:47:59 CDT CPT-J3420 Vitamin B12 1000mcg (Cyanocobalamin) 08:34:04 CDT 10/09 CPT-38085 Abx/Therapy Injection 08:34:04 CDT CPT-J3420 Vitamin B12 1000mcg (Cyanocobalamin) 09:18:52 CDT 09/11 CPT-92421 Abx/Therapy Injection 09:18:52 CDT CPT-J3420 Vitamin B12 1000mcg (Cyanocobalamin) 08:35:44 CDT 09/04 CPT-93928 Abx/Therapy Injection 08:35:44 CDT CPT-77450 Immunization Single Admin 11:07:16 CDT CPT-06866 Hepatitis B adult IM 11:07:16 CDT CPT-J3420 Vitamin B12 1000mcg (Cyanocobalamin) 11:00:49 CDT 08/28 CPT-J1040 Depo Medrol 80 mg (Methyl Prednisolone Acetate) 11:00: 49 CDT CPT-96936 Abx/Therapy Injection 11:00:49 CDT CPT-J1040 Depo Medrol 80 mg (Methyl Prednisolone Acetate) 09:16: 23 CDT CPT-J3420 Vitamin B12 1000mcg (Cyanocobalamin) 08:27:05 CDT 08/20 CPT-91156 Abx/Therapy Injection 08:27:05 CDT CPT-13891 Recombivax HB Injection Suspension 5 MCG/0.5ML 10:00:41 CDT CPT-33605 Administration single or combination vaccine inc oral 10 :00:41 CDT CPT-30139 Sono transvag pelvis non OB uterus ovaries cervix 16:36: 57 CDT CPT-99825 LS spine comp w obliq 09:50:55 GRINDING ROOM INSPECTOR CPT-20451 Abd compl w upright 09:50:55 GRINDING ROOM INSPECTOR CPT-J1100 Decadron 4mg (Dexamethasone) 15:51:24 GRINDING ROOM INSPECTOR CPT-J1030 Depo Medrol 40 mg (Methyl Prednisolone Acetate) 15:51: 24 GRINDING ROOM INSPECTOR CPT-48560 Abx/Therapy Injection 15:51:24 GRINDING ROOM INSPECTOR CPT-J1100 Decadron 4mg (Dexamethasone) 15:26:33 GRINDING ROOM INSPECTOR CPT-J1030 Depo Medrol 40 mg (Methyl Prednisolone Acetate) 15:26: 33 GRINDING ROOM INSPECTOR CPT-36099 Sono retroperitoneal complete kidneys and bladder 17:15: 30 CDT CPT-21664 Abd compl w upright 16:09:25 CDT CPT-J1100 Decadron 8mg (Dexamethasone) 17:07:57 CDT CPT-01774 Abx/Therapy Injection 17:07:57 CDT CPT-J1100 Decadron 8mg (Dexamethasone) 16:55:24 CDT CPT-29120 Chest 2V Frontal and Lat 16:32:44 CDT
--- OUTSIDE RECORDS SUMMARY | 2016-11-04 22:38 | XMS REPORT ---
Author Author [facility] Medical Staff Organization [facility] Address [address] [place], [place] [id number] Phone [phone] Care Team Providers Care Legal Counsel Name Role Phone DENICE OCHOA MD PP [phone] Summary purpose TRANSITION OF CARE AUTO GENERATION [...] tests and/or laboratory data RESULTS Radiology Results [id number]:25:00 Chest X-Ray - 2 View PACs Image DATE OF EXAM: Jul 14 2015 RAD 0300-CHEST XRAY 2 VIEW : RADIOLOGY REPORT DATE OF SERVICE: 07/14/15 HISTORY: Patient has shortness of air and edema. CHEST 2 VIEWS 2030 HOURS Heart and mediastinum are unremarkable. The lungs are clear and expanded. No effusion is seen. IMPRESSION: Negative study of the chest unchanged from 06/02/2015. DO SHANE Frederick/murtaza 07/15/2015 08:07:00 / 07/15/2015 08:45:09 cc:Dr. [place] Jagdish This document has been electronically Signed by: On: DATE OF EXAM: Jul 14 2015 RAD 0300-CHEST XRAY 2 VIEW : RADIOLOGY REPORT DATE OF SERVICE: 07/14/15 HISTORY: Patient has shortness of air and edema. CHEST 2 VIEWS 2030 HOURS Heart and mediastinum are unremarkable. The lungs are clear and expanded. No effusion is seen. IMPRESSION: Negative study of the chest unchanged from 06/02/2015. Mino Call DO MW/nh 07/15/2015 08:07:00 / 07/15/2015 08:45:09 cc:Dr. Denice Ochoa This document has been electronically Signed by: MINO CALL DO On: 20152:24P Result Amended on 2015-07-19 at 14:30:20. Previous status was OR. History of procedures Procedure Code Code Type Description Date Performed Performing Physician 85216 CPT-4 CHEST X-RAY 07-14-2015 SHANTEL GARZON J1885 CPT-4 TORADOL SYR 30MG/ML 07-14-2015 SHANTEL GARZON 10848 CPT-4 EMERGENCY DEPT VISIT 07-14-2015 SHANTEL GARZON 33155 CPT-4 EMERGENCY DEPT VISIT 07-14-2015 SHANTEL GARZON 33506 CPT-4 THER/PROPH/DIAG INJ, SC/IM 07-14-2015 SHANTEL GARZON Functional status Functional Status Finding Observation Time Abdomen Appearance obese 25-81-401668:15 Abdomen soft 89-62-629581:15 Vick no 14-60-597296:15 Urination normal 14-47-243645:15 Quality sym/unlabored 89-99-334617:15 Cough absent 63-77-159270:15 Secretions no 26-83-635997:15 Airway natural 48-32-173049:15 Chest Tube no :15 Oxygen no :30 Temp >100.4 no :40 Temp <96.8 no :40 Chills with rigors no :40 HR > 90bpm no :40 Respirations > 20 no :40 Systolic <90 no :40 headache stiff neck no :40 WBC > 00879 no :40 WBC < 4000 no :40 Nursing Note Discharge instructions given, voices understanding. Amb off unit in good condition to friends vehicle. :40 Vital signs Type Value Date Respiration Rate 20breaths per minute : Pulse 71beats per minute :30 Oxygen Saturation 99% :30 BP Systolic 120mmHg :30 BP Diastolic 72mmHg :30 Temperature 99.0F :30 Weight 286.0LB 10-67-637187:05 Social history Type Value Smoking Status CURRENT EVERY DAY SMOKER Treatment Plan No treatment plan text is available for this visit. Hospital discharge instructions Dismissal Condition good Disposition on DC home DC Inst/Educ Give yes PNE Vac 10 yrs ago Flu Vac 2014
--- OUTSIDE RECORDS SUMMARY | 2016-11-04 22:40 | XMS REPORT | Clinical Summary ---
Author Author Admin, E Organization [facility] [place] Address Unknown Phone Unavailable Allergies, Adverse Reactions, [...] Nocturnal hypoxia 799.02 Active Fabiola Johnson [employer] Hypoxemia Neck pain 723.1 Resolved Vishal Hui [...] specified as infective DYSURIA 788.1 Active Luigi Martínze APRN Dysuria Contraceptive management V25.09 Active Dipika [...] 6 hours as needed for cough GUAIFENESIN-CODEINE 97720577585 Active Ahmet Carbajal MD Active PREDNISONE 20 MG TABS 2 daily for 5 days then 1 daily for 5 days PREDNISONE 66030715477 Active Ahmet Carbajal MD Active LAMICTAL 100 MG ORAL TABS 1 tab q.d LAMOTRIGINE 24403979433 Active Ahmet Carbajal MD Active BENADRYL 25 MG CAP 4 po at bedtime for insomnia DIPHENHYDRAMINE HCL 96949338946 No Longer Active Ahmet Carbajal MD Active ADVAIR DISKUS 250-50 MCG/DOSE INH AEPB 1 puff twice a day for asthma FLUTICASONE-SALMETEROL 38612475345 No Longer Active Ahmet Carbajal MD Active KLONOPIN 1 MG ORAL TABS 1 tab po TID CLONAZEPAM 82521715480 No Longer Active Ahmet Carbajal MD Active ABILIFY MAINTENA 400 MG IM SUSR 400mg injection every 26 days ARIPIPRAZOLE 77810877410 No Longer Active Ahmet Carbajal MD Active HALOPERIDOL 10 MG ORAL TABS 1 tab q.d HALOPERIDOL 91804729464 Active Ahmet Carbajal MD Active ASPIRIN 325 MG ORAL TABS 1 tab q.d ASPIRIN 33509572620 Active Ahmet Carbajal MD Active HYDROCODONE-ACETAMINOPHEN 5-325 MG ORAL TABS 1 tab two times a day HYDROCODONE-ACETAMINOPHEN 78991208054 Active Ahmet Carbajal MD Active TRAMADOL HCL 50 MG TABS 1/2-1 tab TID PRN TRAMADOL HCL 52380880595 No Longer Active Ahmet Carbajal MD Active BACTRIM DS 800-160 MG TABS 1 twice a day SULFAMETHOXAZOLE- TRIMETHOPRIM 41559511412 No Longer Active Ahmet Carbajal MD Active PROAIR HFA 108 (90 BASE) MCG/ACT AERS 2 puffs four times a day as needed 2015 ALBUTEROL SULFATE 70221688470 Active Ahmet Carbajal MD Active EQ NICOTINE 21 MG/24HR TRANS PT24 Apply daily to stop smoking NICOTINE 13613011842 Active Ahmet Carbajal MD Active MONISTAT 7 COMBO PACK WOODROW 100 & 2 MG-% (9GM) VAG KIT 1 applicatorful per vagina q pm x 7 MICONAZOLE NITRATE 87004217251 No Longer Active Ahmet Carbajal MD Active FLAGYL 500 MG TAB 1 tablet by mouth bid METRONIDAZOLE 95587421200 No Longer Active Ahmet Carbajal MD Active OXYCODONE HCL ER 10 MG ORAL T12A 1/2 tab by mouth every 4 hours prn OXYCODONE HCL 12937704107 No Longer Active Ahmet Carbajal MD Active METHYLPREDNISOLONE 4 MG ORAL TABS po daily METHYLPREDNISOLONE 67898745948 No Longer Active Ahmet Carbajal MD Active LEVOFLOXACIN 500 MG ORAL TABS po daily LEVOFLOXACIN 39563798114 No Longer Active Ahmet Carbajal MD Active VIIBRYD 10 MG ORAL TABS Take 1 tablet once a day VILAZODONE HCL 30298748580 No Longer Active Ahmet Carbajal MD Active TOPAMAX 50 MG ORAL TABS 1 tab twice daily TOPIRAMATE 18834266455 No Longer Active Ahmet Carbajal MD Active DICLOFENAC SODIUM 50 MG TBEC 1 tablet by mouth four times daily PRN Pain 2015 DICLOFENAC SODIUM 69225411429 No Longer Active Ahmet Carbajal MD Active ADZENYS XR-ODT 6.3 MG ORAL TBED 1 tab po daily for ADHD AMPHETAMINE 64098220550 No Longer Active Ahmet Carbajal MD Active CHANTIX 1 MG TABS 1 twice a day to help quit smoking VARENICLINE TARTRATE 90145928365 No Longer Active Dipika Burgos MD Active CHANTIX STARTING MONTH EARNEST 0.5 MG X 11 & 1 MG X 42 TABS take as directed 2015 VARENICLINE TARTRATE 01557304281 No Longer Active Dipika Burgos MD Active TESSALON PERLES 100 MG CAP 1 to 2 tablets by mouth 3 times daily as needed for cough BENZONATATE 24074709607 No Longer Active Luigi Martínez APRN Active IMITREX 50 MG ORAL TABS 0.5 po x 1 PRN Headache. May repeat dose x 1 in 2 hours if needed SUMATRIPTAN SUCCINATE 98720180928 Active TAMARA Casey Active HYDROCODONE-ACETAMINOPHEN 5-325 MG TABS 1 to 2 four times a day as needed for pain use until can be seen by specialist HYDROCODONE- ACETAMINOPHEN 28446321077 No Longer Active Vishal Hui MD Active PROAIR HFA 108 (90 BASE) MCG/ACT AERS 2 puffs four times a day as needed 2015 ALBUTEROL SULFATE 38970600301 No Longer Active Vishal Hui MD Active PREDNISONE 20 MG TABS 2 daily for 5 days then 1 daily for 5 days PREDNISONE 97838631568 No Longer Active Vishal Hui MD Active ZITHROMAX Z-EARNEST 250 MG TABS 2 today and then 1 daily for 4 days AZITHROMYCIN 60347881237 No Longer Active Vishal Hui MD Active DICLOFENAC POTASSIUM TABS Take 1 tablet twice a day (pt. is not sure of the dose.) DICLOFENAC POTASSIUM TABS 36721923761 No Longer Active Vishal Hui MD Active VERAPAMIL HCL ER 120 MG ORAL CR-TABS Take 1 tablet by mouth twice a day. VERAPAMIL HCL 71910085057 Active Vishal Hui MD Active FLAGYL 500 MG TAB 1 tablet by mouth bid METRONIDAZOLE 78319987952 No Longer Active Vishal Hui MD Active FLUTICASONE PROPIONATE 50 MCG/ACT SUSP 2 sprays each nostril daily before bed. FLUTICASONE PROPIONATE 02986464180 Active Fabiola Johnson APRN Active VALIUM 5 MG TAB Take 1-2 tablets daily DIAZEPAM 57961356478 No Longer Active Fabiola Johnson APRN Active METOPROLOL TARTRATE 25 MG ORAL TABS 1/2 tablet twice daily for heart rate and blood pressure METOPROLOL TARTRATE 58401928472 No Longer Active Fabiola Johnson APRN Active MIRALAX ORAL POWD 17GMS DAILY IN WATER POLYETHYLENE GLYCOL 3350 84538216927 Active Vishal Hui MD Active MIRALAX PACK 1 po qd PRN Constipation POLYETHYLENE GLYCOL 3350 47402675372 No Longer Active Ahmet Carbajal MD Active MINIPRESS 2 MG CAPS 4 cap po at night PRAZOSIN HCL 74208359059 No Longer Active Ahmet Carbajal MD Active PIROXICAM 20 MG CAPS 1 cap po qd PRN Pain PIROXICAM 78904668828 No Longer Active Ahmet Carbajal MD Active TRAMADOL HCL 50 MG TABS 1-2 po TID PRN Pain TRAMADOL HCL 73585745372 No Longer Active Ahmet Carbajal MD Active METOPROLOL TARTRATE 50 MG TAB 1 po bid METOPROLOL TARTRATE 29550831664 No Longer Active Ahmet Carbajal MD Active ABILIFY 15 MG ORAL TABS 1 tab daily ARIPIPRAZOLE 05218745116 No Longer Active Ahmet Carbajal MD Active PROZAC 20 MG ORAL CAPS 1 tab daily FLUOXETINE HCL 59862019413 No Longer Active Ahmet Carbajal MD Active AMBIEN 5 MG ORAL TABS 1 tab at bedtime ZOLPIDEM TARTRATE 84913730914 No Longer Active Ahmet Carbajal MD Active PREDNISONE 20 MG TAB 2 tabs daily for 4 days, 1 tab daily for 4 days, 1/2 tab daily for 4 days PREDNISONE 61824880222 No Longer Active Ahmet Carbajal MD Active KEFLEX 500 MG CAP 1 po TID x 10 days CEPHALEXIN 79428760818 No Longer Active Vishal Hui MD Active SAPHRIS 5 MG SUBL 1 po bid ASENAPINE MALEATE 34400775319 No Longer Active Jillina Fralebron [employer]AKING [employer]ACH Active LATUDA 80 MG TABS Take one by mouth daily LURASIDONE HCL 09590400886 No Longer Active Jillina Frazelephraim PUBLIC SPEAKING COACH Active AMLODIPINE BESYLATE 5 MG TABS 1 tablet by mouth daily AMLODIPINE BESYLATE 36457149049 No Longer Active Jillina Fradwightl PUBLIC SPEAKING COACH Active AMITRIPTYLINE HCL 100 MG TAB one at hs AMITRIPTYLINE HCL 67983768623 No Longer Active Vishal Hui MD Active TRAZODONE HCL 100 MG TAB take 1 at bedtime TRAZODONE HCL 97978715824 No Longer Active Vishal Hui MD Active VYVANSE 40 MG CAPS 1 daily, LISDEXAMFETAMINE DIMESYLATE 11617771368 No Longer Active Vishal Hui MD Active IBUPROFEN 600 MG TAB 1 po TID PRN IBUPROFEN 16459139883 No Longer Active Vishal Hui MD Active PROZAC 20 MG CAP Take one by mouth daily FLUOXETINE HCL 71077116972 No Longer Active Vishal Hui MD Active ZOFRAN 4 MG TABS 1 po q6hr PRN Nausea ONDANSETRON HCL Active Vishal Hui MD Active BACTRIM DS 800-160 MG TABS 1 pill by mouth twice daily SULFAMETHOXAZOLE-TRIMETHOPRIM 15587827170 No Longer Active Sahara Rodriguez MD PhD Active DIFLUCAN 150 MG TAB 1 tablet by mouth daily FLUCONAZOLE 38843509847 No Longer Active Vishal Hui MD Active TIZANIDINE HCL 4 MG TABS 1 po q6hr PRN Muscle Spasm/Back Pain TIZANIDINE HCL 82103117445 Active Vishal Hui MD Active CLINDAMYCIN HCL 150 MG CAPS 1 four times a day CLINDAMYCIN HCL 39249581128 No Longer Active Neeraj Collins MD Active KEFLEX 500 MG ORAL CAPS 1 cap QID by mouth CEPHALEXIN 69118011337 No Longer Active Neeraj Collins MD Active DIFLUCAN 150 MG TABS 1 pill every other day x 2 doses FLUCONAZOLE 30088538245 No Longer Active Sahara Rodriguez MD PhD Active MELATONIN 3 MG CAPS 2 po q hs MELATONIN 25302979099 No Longer Active Sahara Rodriguez MD PhD Active MULTIVITAMINS CAPS Take one by mouth daily MULTIPLE VITAMIN 03864968332 No Longer Active Sahara Rodriguez MD PhD Active BACTRIM DS 800-160 MG TAB 1 tab by mouth twice daily TRIMETHOPRIM-SULFAMETHOXAZOLE 30564500371 No Longer Active Sahara Rodriguez MD PhD Active [facility] PROBIOTIC ORAL CHEW 2 daily po PROBIOTIC PRODUCT 31344069091 No Longer Active Sahara Rodriguez MD PhD Active BACTRIM DS 800-160 MG TABS 1 po BID x 7 days SULFAMETHOXAZOLE-TRIMETHOPRIM 42355380837 No Longer Active Vishal Hui MD Active CHANTIX STARTING MONTH EARNEST 0.5 MG X 11 & 1 MG X 42 TABS 0.5mg daily for 3 days , then 0.5mg BID for 4 days, then 1mg BID VARENICLINE TARTRATE 42275534266 No Longer Active TAMARA Gray Active VERAPAMIL HCL CR 120 MG TAB CR 1 po bid VERAPAMIL HCL 00459938637 No Longer Active Vishal Hui MD Active METOPROLOL SUCCINATE 50 MG TB24 1 tablet by mouth daily METOPROLOL SUCCINATE 44710355064 No Longer Active Vishal Hui MD Active SAPHRIS 10 MG SUBL 1 tab po bid ASENAPINE MALEATE 82967903332 No Longer Active Vishal Hui MD Active LISINOPRIL 20 MG TABS 1 tab po qd LISINOPRIL 68668316058 No Longer Active Vishal Hui MD Active LATUDA 20 MG TABS Take one by mouth daily LURASIDONE HCL 15948185648 No Longer Active Vishal Hui MD Active TRAZODONE HCL 50 MG TABS 1/2 tab po qd prn for anxiety TRAZODONE HCL 87981628047 No Longer Active Vishal Hui MD Active OMEPRAZOLE 20 MG TBEC 1 po q a.m. 30min prior to first food intake OMEPRAZOLE 63650937668 Active Vishal Hui MD Active RANITIDINE HCL 150 MG CAPS 1 twice a day RANITIDINE HCL 04676280283 Active Luigi Martínez APRN Active LINZESS 290 MCG CAPS Take one by mouth daily LINACLOTIDE 54598841297 No Longer Active Vishal Hui MD Active SAPHRIS 5 MG SUBL 1 tab po qd ASENAPINE MALEATE 83382826287 No Longer Active Vishal Hui MD Active ZALEPLON 10 MG CAPS 1 cap po every other night ZALEPLON 22793996436 No Longer Active Vishal Hui MD Active LYRICA 50 MG CAPS 1 tab po TID PREGABALIN 15884492437 No Longer Active Vishal Hui MD Active LORATADINE 10 MG TABS 1 tab po qd LORATADINE 10338374042 No Longer Active Vishal Hui MD Active VERAPAMIL HCL ER 180 MG CR-TABS 1 tab po bid VERAPAMIL HCL 30371116784 No Longer Active Vishal Hui MD Active MIRALAX POWD 1 capfull once daily POLYETHYLENE GLYCOL 3350 85191400037 No Longer Active Vishal Hui MD Active PREDNISONE 20 MG TABS 1 tab po qd PREDNISONE 64441104587 No Longer Active Renzo Thornton DO Active LEVOFLOXACIN 500 MG TABS 1 tab po qd LEVOFLOXACIN 21018233323 No Longer Active Renzo Thornton DO Active BUSPIRONE HCL 15 MG TABS 1 tab po TID BUSPIRONE HCL 86724777997 No Longer Active Renzo Thornton DO Active BENZTROPINE MESYLATE 1 MG TABS 1 tab po qd BENZTROPINE MESYLATE 67997014687 No Longer Active Renzo Thornton DO Active ATENOLOL 25 MG TABS 1 tab po qd ATENOLOL 30420184633 No Longer Active Renzo Thornton DO Active ESCITALOPRAM OXALATE 20 MG TABS 1 tab po qd ESCITALOPRAM OXALATE 09833274445 No Longer Active Renzo Thornton DO Active ADVAIR DISKUS 250-50 MCG/DOSE AEPB 1 puff BID FLUTICASONE-SALMETEROL 18804595874 No Longer Active Renzo Thornton DO Active PREDNISONE 20 MG TAB 2 tabs daily for 3 days, 1 tab daily for 3 days, 1/2 tab daily for 2 days PREDNISONE 85689153372 No Longer Active Vishal Hui MD Active CEFDINIR 300 MG CAPS by mouth twice a day CEFDINIR 30666800937 No Longer Active Vishal Hui MD Active LANSOPRAZOLE 30 MG CPDR 1 cap po qd LANSOPRAZOLE 91480951525 No Longer Active Vishal Hui MD Active BACLOFEN 20 MG TABS 1 tab po tid BACLOFEN 80251557783 No Longer Active Vishal Hui MD Active ADVAIR DISKUS 250-50 MCG/DOSE AEPB 1 puff BID ADVAIR DISKUS 250-50 MCG/DOSE AEPB FLUTICASONE-SALMETEROL Inactive ESCITALOPRAM OXALATE 20 MG TABS 1 tab po qd ESCITALOPRAM OXALATE 20 MG TABS 403008 ESCITALOPRAM OXALATE Inactive ATENOLOL 25 MG TABS 1 tab po qd ATENOLOL 25 MG TABS 961044 ATENOLOL Inactive BENZTROPINE MESYLATE 1 MG TABS 1 tab po qd BENZTROPINE MESYLATE 1 MG TABS 109734 BENZTROPINE MESYLATE Inactive BUSPIRONE HCL 15 MG TABS 1 tab po TID BUSPIRONE HCL 15 MG TABS 406750 BUSPIRONE HCL Inactive LEVOFLOXACIN 500 MG TABS 1 tab po qd LEVOFLOXACIN 500 MG TABS 426261 LEVOFLOXACIN Inactive PREDNISONE 20 MG TABS 1 tab po qd PREDNISONE 20 MG TABS 250328 PREDNISONE Inactive MIRALAX POWD 1 capfull once daily MIRALAX POWD 823242 POLYETHYLENE GLYCOL 3350 Inactive VERAPAMIL HCL ER 180 MG CR-TABS 1 tab po bid VERAPAMIL HCL ER 180 MG CR-TABS VERAPAMIL HCL Inactive LORATADINE 10 MG TABS 1 tab po qd LORATADINE 10 MG TABS 177940 LORATADINE Inactive LYRICA 50 MG CAPS 1 tab po TID LYRICA 50 MG CAPS PREGABALIN Inactive ZALEPLON 10 MG CAPS 1 cap po every other night ZALEPLON 10 MG CAPS 244514 ZALEPLON Inactive SAPHRIS 5 MG SUBL 1 tab po qd SAPHRIS 5 MG SUBL ASENAPINE MALEATE Inactive TRAZODONE HCL 50 MG TABS 1/2 tab po qd prn for anxiety TRAZODONE HCL 50 MG TABS 972972 TRAZODONE HCL Inactive LATUDA 20 MG TABS Take one by mouth daily LATUDA 20 MG TABS LURASIDONE HCL Inactive LISINOPRIL 20 MG TABS 1 tab po qd LISINOPRIL 20 MG TABS 779354 LISINOPRIL Inactive SAPHRIS 10 MG SUBL 1 [...] twice daily BACTRIM DS 800-160 MG TAB 374740 TRIMETHOPRIM-SULFAMETHOXAZOLE Inactive MULTIVITAMINS CAPS Take one by mouth daily MULTIVITAMINS CAPS MULTIPLE VITAMIN Inactive MELATONIN 3 MG CAPS 2 po q hs MELATONIN 3 MG CAPS 679307 MELATONIN Inactive KEFLEX 500 MG ORAL CAPS 1 cap QID by mouth KEFLEX 500 MG ORAL CAPS 353369 CEPHALEXIN Inactive CLINDAMYCIN HCL 150 MG CAPS 1 four times a day CLINDAMYCIN HCL 150 MG CAPS 204531 CLINDAMYCIN HCL Inactive DIFLUCAN 150 MG TAB 1 tablet by mouth daily DIFLUCAN 150 MG TAB 728845 FLUCONAZOLE Inactive PROZAC 20 MG CAP Take one by mouth daily PROZAC 20 MG CAP 756984 FLUOXETINE HCL Inactive IBUPROFEN 600 MG TAB 1 po TID PRN IBUPROFEN 600 MG TAB 185931 IBUPROFEN Inactive VYVANSE 40 MG CAPS 1 daily, VYVANSE 40 MG CAPS LISDEXAMFETAMINE DIMESYLATE Inactive TRAZODONE HCL 100 MG TAB take 1 at bedtime TRAZODONE HCL 100 MG TAB 268561 TRAZODONE HCL Inactive AMITRIPTYLINE HCL 100 MG TAB one at hs AMITRIPTYLINE HCL 100 MG TAB 430620 AMITRIPTYLINE HCL Inactive AMLODIPINE BESYLATE 5 MG TABS 1 tablet by mouth daily AMLODIPINE BESYLATE 5 MG TABS 283833 AMLODIPINE BESYLATE Inactive LATUDA 80 MG TABS Take one by mouth daily LATUDA 80 MG TABS LURASIDONE HCL Inactive SAPHRIS 5 MG SUBL 1 po bid SAPHRIS 5 MG SUBL ASENAPINE MALEATE Inactive PREDNISONE 20 MG TAB 2 tabs daily for 4 days, 1 tab daily for 4 days, 1/2 tab daily for 4 days PREDNISONE 20 MG TAB 024221 PREDNISONE Inactive AMBIEN 5 MG ORAL TABS 1 tab at bedtime AMBIEN 5 MG ORAL TABS 623634 ZOLPIDEM TARTRATE Inactive PROZAC 20 MG ORAL CAPS 1 tab daily PROZAC 20 MG ORAL CAPS 565135 FLUOXETINE HCL Inactive ABILIFY 15 MG ORAL TABS 1 tab daily ABILIFY 15 MG ORAL TABS 157950 ARIPIPRAZOLE Inactive METOPROLOL TARTRATE 50 MG TAB 1 po bid METOPROLOL TARTRATE 50 MG TAB 860544 METOPROLOL TARTRATE Inactive TRAMADOL HCL 50 MG TABS 1-2 po TID PRN Pain TRAMADOL HCL 50 MG TABS 773088 TRAMADOL HCL Inactive PIROXICAM 20 MG CAPS 1 cap po qd PRN Pain PIROXICAM 20 MG CAPS 290948 PIROXICAM Inactive MINIPRESS 2 MG CAPS 4 cap po at night MINIPRESS 2 MG CAPS 114684 PRAZOSIN HCL Inactive MIRALAX PACK 1 po qd PRN Constipation MIRALAX PACK 883196 POLYETHYLENE GLYCOL 3350 Inactive METOPROLOL TARTRATE 25 MG ORAL TABS 1/2 tablet twice daily for heart rate and blood pressure METOPROLOL TARTRATE 25 MG ORAL TABS 756104 METOPROLOL TARTRATE Inactive VALIUM 5 MG TAB Take 1-2 tablets daily VALIUM 5 MG TAB 502438 DIAZEPAM Inactive FLAGYL 500 MG TAB 1 tablet by mouth bid FLAGYL 500 MG TAB 610084 METRONIDAZOLE Inactive DICLOFENAC POTASSIUM TABS Take 1 tablet twice a day (pt. is not sure of the dose.) DICLOFENAC POTASSIUM TABS DICLOFENAC POTASSIUM TABS Inactive ZITHROMAX Z-EARNEST 250 MG TABS 2 today and then 1 daily for 4 days ZITHROMAX Z-EARNEST 250 MG TABS 8522040 AZITHROMYCIN Inactive PREDNISONE 20 MG TABS 2 daily for 5 days then 1 daily for 5 days PREDNISONE 20 MG TABS 794704 PREDNISONE Inactive PROAIR HFA 108 (90 BASE) MCG/ACT AERS 2 puffs four times a day as needed 2015 PROAIR HFA 108 (90 BASE) MCG/ACT AERS ALBUTEROL SULFATE Inactive HYDROCODONE-ACETAMINOPHEN 5-325 MG TABS 1 to 2 four times a day as needed for pain use until can be seen by specialist HYDROCODONE- ACETAMINOPHEN 5-325 MG TABS 729458 HYDROCODONE-ACETAMINOPHEN Inactive TESSALON PERLES 100 MG CAP 1 to 2 tablets by mouth 3 times daily as needed for cough TESSALON PERLES 100 MG CAP 575649 BENZONATATE Inactive CHANTIX STARTING MONTH EARNEST 0.5 [...] PRN Pain 2015 DICLOFENAC SODIUM 50 MG [facility] 448034 DICLOFENAC SODIUM Inactive TOPAMAX 50 MG ORAL TABS 1 tab twice daily TOPAMAX 50 MG ORAL TABS 884464 TOPIRAMATE Inactive VIIBRYD 10 MG ORAL TABS Take 1 tablet once a day VIIBRYD 10 MG ORAL TABS VILAZODONE HCL Inactive LEVOFLOXACIN 500 MG ORAL TABS po daily LEVOFLOXACIN 500 MG ORAL TABS 835468 LEVOFLOXACIN Inactive METHYLPREDNISOLONE 4 MG ORAL TABS po daily METHYLPREDNISOLONE 4 MG ORAL TABS 561736 METHYLPREDNISOLONE Inactive OXYCODONE HCL ER 10 MG ORAL T12A 1/2 tab by mouth every 4 hours prn OXYCODONE HCL ER 10 MG ORAL T12A OXYCODONE HCL Inactive FLAGYL 500 MG TAB 1 tablet by mouth bid FLAGYL 500 MG TAB 813660 METRONIDAZOLE Inactive MONISTAT 7 COMBO PACK WOODROW 100 & 2 MG-% (9GM) VAG KIT 1 applicatorful per vagina q pm x 7 MONISTAT 7 COMBO PACK WOODROW 100 & 2 MG-% (9GM) VAG KIT MICONAZOLE NITRATE Inactive BACTRIM DS 800-160 MG TABS 1 twice a day BACTRIM DS 800-160 MG TABS 441937 SULFAMETHOXAZOLE-TRIMETHOPRIM Inactive TRAMADOL HCL 50 MG TABS 1/2-1 tab TID PRN TRAMADOL HCL 50 MG TABS 072004 TRAMADOL HCL Inactive ABILIFY MAINTENA 400 MG IM SUSR 400mg injection every 26 days ABILIFY MAINTENA 400 MG IM SUSR ARIPIPRAZOLE Inactive KLONOPIN 1 MG ORAL TABS 1 tab po TID KLONOPIN 1 MG ORAL TABS 185590 CLONAZEPAM Inactive ADVAIR DISKUS 250-50 MCG/DOSE INH AEPB 1 puff twice a day for asthma ADVAIR DISKUS 250-50 MCG/DOSE INH AEPB FLUTICASONE- SALMETEROL Inactive BENADRYL 25 MG CAP 4 po at bedtime for insomnia BENADRYL 25 MG CAP DIPHENHYDRAMINE HCL Inactive CEFDINIR 300 MG CAPS by mouth twice a day CEFDINIR 300 MG CAPS 239235 CEFDINIR Inactive PREDNISONE 20 MG TAB 2 tabs daily for 3 days, 1 tab daily for 3 days, 1/2 tab daily for 2 days PREDNISONE 20 MG TAB 381267 PREDNISONE Inactive BACTRIM DS 800-160 MG TABS 1 po BID x 7 days BACTRIM DS 800-160 MG TABS 19820521 SULFAMETHOXAZOLE-TRIMETHOPRIM Inactive DIFLUCAN 150 MG TABS 1 pill every other day x 2 doses DIFLUCAN 150 MG TABS 782862 FLUCONAZOLE Inactive BACTRIM DS 800-160 MG TABS 1 pill by mouth twice daily BACTRIM DS 800-160 MG TABS 839779 SULFAMETHOXAZOLE-TRIMETHOPRIM Inactive KEFLEX 500 MG CAP 1 po TID x 10 days KEFLEX 500 MG CAP 631587 CEPHALEXIN Inactive Advance Directives Directive Description Start [...] 369 10^3/MM^3 10*3/mm3 142-424 Lab Report: Chlamydia/GC APTIMA/[id number] - Lab chlamydia DNA probe NOT DETECTED NOT DETECTED Lab Report: Chlamydia/GC APTIMA/[id number] - Microbiology Neisseria gonorrhoeae DNA probe NOT DETECTED NOT DETECTED Lab Report: Comp. Metabolic Panel - Chemistry sodium, serum 142 mmol/L 110-519 7212/06/08 carbon dioxide, venous blood 27.6 mmol/L 21.0-32.0 potassium, serum 4.0 mmol/L 3.5-5.2 chloride, serum 105 mmol/L 98-107 blood glucose 95 mg/dL 65-110 urea nitrogen, blood 8 mg/dL 7-18 creatinine, serum 0.75 mg/dL 0.55-1.30 alanine aminotransferase (SGPT), serum 49 U/L 12-78 aspartate aminotransferase (SGOT), serum 28 U/L 15-37 calcium, serum 9.4 mg/dL 8.5-10.1 bilirubin, serum, total 0.30 mg/dL 0.00-1.00 sodium, serum 140 mmol/L 462-160 8861/08/08 carbon dioxide, venous blood 33.7 mmol/L 21.0-32.0 [...] mg/dL Encounters Code Encounter Date Provider Facility CPT-19126 Level 3 Est. Patient 10:40:11 MEDICAL CODING TECHNICIAN Ahmet Carbajal MD [facility] CPT-70449 Level 3 Est. Patient 15:07:06 MEDICAL CODING TECHNICIAN Neeraj Collins MD [facility] CPT-00461 Level 4 Est. Patient 14:45:00 MEDICAL CODING TECHNICIAN Ahmet Carbajal MD [facility] CPT-49894 Level 3 Est. Patient 13:59:59 CDT Luigi Martínez [facility] CPT-43501 Level 3 Est. Patient 18:18:53 CDT Neeraj Collins MD [facility] CPT-32933 Level 3 Est. Patient 15:50:44 CDT Vishal Hui MD [facility] CPT-44935 Level 3 Est. Patient 11:36:17 CDT Ahmet Carbajal MD [facility] CPT-37324 Level 3 Est. Patient 13:29:16 CDT Vishal Hui MD [facility] CPT-75887 Level 3 Est. Patient 14:27:52 CDT Neeraj Collins MD [facility] CPT-21988 Level 3 Est. Patient 08:56:03 CDT Luigi Martínez [facility] CPT-00005 Level 4 Est. Patient 12:11:48 CDT Fabiola Johnson [facility] CPT-97855 Level 3 New Patient 16:53:37 CDT Albert Caldera MD [facility] CPT-37779 Level 3 Est. Patient 11:25:49 CDT Renzo Thornton DO [facility] CPT-12365 Level 3 Est. Patient 15:22:01 CDT Ahmet Carbajal MD [facility] CPT-46108 Level 4 Est. Patient 09:00:51 MEDICAL CODING TECHNICIAN Vishal Hui MD [facility] CPT-94214 Level 3 Est. Patient 11:37:33 MEDICAL CODING TECHNICIAN Vishal Hui MD [facility] CPT-75836 Level 3 Est. Patient 08:41:09 MEDICAL CODING TECHNICIAN Vishal Hui MD [facility] CPT-93517 Level 4 Est. Patient 10:19:35 MEDICAL CODING TECHNICIAN Vishal Hui MD [facility] CPT-49246 Level 3 Est. Patient 13:35:45 CDT Vishal Hui MD [facility] CPT-21867 Level 4 Est. Patient 10:08:37 CDT Vishal Hui MD [facility] CPT-46404 Level 3 Est. Patient 11:22:10 CDT Vishal Hui MD [facility] CPT-68977 Level 3 Est. Patient 11:03:32 CDT Sahara Rodriguez MD [facility]-42646 Level 3 Est. Patient 09:41:35 CDT Vishal Hui MD [facility] CPT-62764 Level 3 Est. Patient 12:00:41 CDT Neeraj Collins MD [facility] CPT-24210 Level 3 Est. Patient 09:16:24 CDT Vishal Hui MD [facility] CPT-88048 Level 4 Est. Patient 13:59:09 CDT Neeraj Collins MD [facility] CPT-21012 Level 3 Est. Patient 15:19:43 CDT Renzo Thornton DO [facility] CPT-13814 Level 3 Est. Patient 18:10:26 CDT Sahara Rodriguez MD [facility]-28285 Level 3 Est. Patient 14:49:50 CDT Vishal Hui MD [facility] CPT-59771 Level 4 Est. Patient 18:41:46 CDT Neeraj Collins MD [facility]-73197 Level 4 Est. Patient 09:18:38 MEDICAL CODING TECHNICIAN Vishal Hui MD [facility] CPT-03810 Level 3 Est. Patient 14:43:55 MEDICAL CODING TECHNICIAN Vishal Hui MD [facility] CPT-77449 Level 3 Est. Patient 15:26:33 MEDICAL CODING TECHNICIAN Sahara Rodriguez MD PhD [facility] CPT-18370 Level 3 Est. Patient 10:32:14 MEDICAL CODING TECHNICIAN Vishal Hui MD [facility] CPT-43200 Level 3 Est. Patient 15:12:52 MEDICAL CODING TECHNICIAN Vishal Hui MD [facility] CPT-51612 Level 4 Est. Patient 09:19:27 CDT Vishal Hui MD [facility] CPT-63314 Level 3 Est. Patient 15:53:00 CDT Renzo Thornton [facility] CPT-21294 Level 3 Est. Patient 15:50:30 CDT Renzo Thornton [facility] CPT-71609 Level 3 Est. Patient 16:55:24 CDT Vishal Hui MD [facility] Procedures Code Procedure Name Date Entry Date Standard Description CPT-G0439 [facility] Annual Wellness Exam 09:30:58 MEDICAL CODING TECHNICIAN CPT-09402 TSH - LAB USE ONLY 08:50:26 MEDICAL CODING TECHNICIAN CPT-54451 CBC - LAB USE ONLY 08:50:26 MEDICAL CODING TECHNICIAN CPT-48687 Venipuncture Draw Fee 08:50:26 MEDICAL CODING TECHNICIAN CPT-70709 Abx/Therapy Injection 17:34:30 MEDICAL CODING TECHNICIAN CPT-52376 Nexplanon Removal with Reinsertion 14:09:32 CDT CPT-J7307 Nexplanon (Implant) 14:09:32 CDT CPT-OV Office Visit 14:09:32 CDT CPT-74268 UA w micro - LAB USE ONLY 16:21:13 CDT CPT-51085 Wet Mount - LAB USE ONLY 16:21:13 CDT CPT-36603 First Vx - Ix admin for Medicare patients 14:37:47 CDT CPT-51363 Fluzone Preservative Free Intramuscular Suspension 14:37 :47 CDT CPT-32947 Abx/Therapy Injection 13:54:22 CDT CPT-12769 Abx/Therapy Injection 08:47:09 CDT CPT-93055 Abx/Therapy Injection 13:29:56 CDT CPT-13960 Abx/Therapy Injection 08:36:16 CDT CPT-37683 Wet Mount - LAB USE ONLY 17:44:58 CDT CPT-85717 UA w micro - LAB USE ONLY 17:44:58 CDT CPT-48686 CMP - LAB USE ONLY 17:44:58 CDT CPT-01847 Venipuncture Draw Fee 17:44:58 CDT CPT-24978 Cervical Min 4V - XRAY USE ONLY 09:01:40 CDT CPT-94495 Chest 2V Frontal and Lat - XRAY USE ONLY 11:06:31 CDT CPT-73164 EKG Trac and Interp - XRAY USE ONLY 11:31:43 CDT 08/26 CPT-J3420 Vitamin B12 1000mcg (Cyanocobalamin) 08:10:26 MEDICAL CODING TECHNICIAN 04/12 CPT-06859 Abx/Therapy Injection 08:10:26 MEDICAL CODING TECHNICIAN CPT-G0438 Initial Annual Wellness Exam 19:01:01 MEDICAL CODING TECHNICIAN CPT-J3420 Vitamin B12 1000mcg (Cyanocobalamin) 16:57:46 CDT 08/14 CPT-78367 Recombivax HB Injection Suspension 5 MCG/0.5ML 08:37:50 MEDICAL CODING TECHNICIAN CPT-77402 Immunization Single Admin 08:37:50 MEDICAL CODING TECHNICIAN CPT-J3420 Vitamin B12 1000mcg (Cyanocobalamin) 08:32:16 MEDICAL CODING TECHNICIAN 03/11 CPT-23677 Abx/Therapy Injection 08:32:16 MEDICAL CODING TECHNICIAN CPT-56839 Chest 2V Frontal and Lat 11:46:38 MEDICAL CODING TECHNICIAN CPT-76169 Venipuncture Draw Fee 09:12:45 MEDICAL CODING TECHNICIAN CPT-J3420 Vitamin B12 1000mcg (Cyanocobalamin) 08:50:15 MEDICAL CODING TECHNICIAN 02/08 CPT-17616 Abx/Therapy Injection 08:50:15 MEDICAL CODING TECHNICIAN CPT-Cryo Cryotherapy 10:19:35 MEDICAL CODING TECHNICIAN CPT-000 Give Appropriate Flu Vaccine 09:22:16 CDT CPT-J3420 Vitamin B12 1000mcg (Cyanocobalamin) 19:08:57 CDT 01/11 CPT-93309 Abx/Therapy Injection 19:08:57 CDT CPT-J3420 Vitamin B12 1000mcg (Cyanocobalamin) 08:19:08 CDT 12/11 CPT-17900 Abx/Therapy Injection 08:19:08 CDT CPT-J3420 Vitamin B12 1000mcg (Cyanocobalamin) 14:48:00 CDT 11/09 CPT-82648 Abx/Therapy Injection 14:47:59 CDT CPT-J3420 Vitamin B12 1000mcg (Cyanocobalamin) 08:34:04 CDT 10/09 CPT-50817 Abx/Therapy Injection 08:34:04 CDT CPT-J3420 Vitamin B12 1000mcg (Cyanocobalamin) 09:18:52 CDT 09/11 CPT-38079 Abx/Therapy Injection 09:18:52 CDT CPT-J3420 Vitamin B12 1000mcg (Cyanocobalamin) 08:35:44 CDT 09/04 CPT-01645 Abx/Therapy Injection 08:35:44 CDT CPT-25950 Immunization Single Admin 11:07:16 CDT CPT-77024 Hepatitis B adult IM 11:07:16 CDT CPT-J3420 Vitamin B12 1000mcg (Cyanocobalamin) 11:00:49 CDT 08/28 CPT-J1040 Depo Medrol 80 mg (Methyl Prednisolone Acetate) 11:00: 49 CDT CPT-27407 Abx/Therapy Injection 11:00:49 CDT CPT-J1040 Depo Medrol 80 mg (Methyl Prednisolone Acetate) 09:16: 23 CDT CPT-J3420 Vitamin B12 1000mcg (Cyanocobalamin) 08:27:05 CDT 08/20 CPT-27777 Abx/Therapy Injection 08:27:05 CDT CPT-74578 Recombivax HB Injection Suspension 5 MCG/0.5ML 10:00:41 CDT CPT-45655 Administration single or combination vaccine inc oral 10 :00:41 CDT CPT-76509 Sono transvag pelvis non OB uterus ovaries cervix 16:36: 57 CDT CPT-85742 LS spine comp w obliq 09:50:55 MEDICAL CODING TECHNICIAN CPT-95327 Abd compl w upright 09:50:55 MEDICAL CODING TECHNICIAN CPT-J1100 Decadron 4mg (Dexamethasone) 15:51:24 MEDICAL CODING TECHNICIAN CPT-J1030 Depo Medrol 40 mg (Methyl Prednisolone Acetate) 15:51: 24 MEDICAL CODING TECHNICIAN CPT-06880 Abx/Therapy Injection 15:51:24 MEDICAL CODING TECHNICIAN CPT-J1100 Decadron 4mg (Dexamethasone) 15:26:33 MEDICAL CODING TECHNICIAN CPT-J1030 Depo Medrol 40 mg (Methyl Prednisolone Acetate) 15:26: 33 MEDICAL CODING TECHNICIAN CPT-73833 Sono retroperitoneal complete kidneys and bladder 17:15: 30 CDT CPT-16995 Abd compl w upright 16:09:25 CDT CPT-J1100 Decadron 8mg (Dexamethasone) 17:07:57 CDT CPT-85336 Abx/Therapy Injection 17:07:57 CDT CPT-J1100 Decadron 8mg (Dexamethasone) 16:55:24 CDT CPT-62478 Chest 2V Frontal and Lat 16:32:44 CDT
--- OUTSIDE RECORDS SUMMARY | 2016-11-04 22:40 | XMS REPORT ---
Author Author [facility] Medical Staff Organization [facility] [place] [facility] Address [address] [place], [place] [id number] Phone [phone] Summary purpose TRANSITION OF CARE AUTO GENERATION [...] tests and/or laboratory data RESULTS Radiology Results [id number] MRI C-SPINE W/O CONT PACs Image DATE [...] resonance imaging cervical spine. Pawan Sesay DO /or 06/03/2015 10:01: / 06/03/2015 10:14:22 cc:Dr. Allie Medina This document has been electronically Signed [...] Normal magnetic resonance imaging cervical spine. Pawan Seasy DO /or 06/03/2015 10:01: / 06/03/2015 10:14:22 cc:Dr. Allie Medina This document has been electronically Signed by: PAWAN SESAY DO On: Jun 03 2015 11:02A Result Amended on 2015-06-03 at 11:02:10. Previous status was IA. History of procedures Procedure Code Code Type Description Date Performed Performing Physician 47805 CPT-4 MRI NECK SPINE W/O DYE 06-03-2015 ALLIE MEDINA Functional status No functional or cognitive status [...]
--- OUTSIDE RECORDS SUMMARY | 2016-11-04 22:41 | XMS REPORT ---
Author Author [employer] [facility] Medical Staff Organization [facility] Address [address] [place], [place] [id number] Phone [phone] Summary purpose TRANSITION OF CARE AUTO GENERATION [...]
--- OUTSIDE RECORDS SUMMARY | 2016-11-04 22:43 | XMS REPORT | Clinical Summary ---
Author Author Admin, E Organization [facility] [employer] Address Unknown Phone Unavailable Allergies, Adverse Reactions, Alerts Allergy Name Reaction Description Start Date Severity Status Provider REQUIP Unsure of reaction, states that she was in severe pain Critical Active Ahmet Carbajal MD AMITRIPTYLINE HCL Mood changes. LDA MA Critical Active Vishal Hui MD FANAPT heart palpitations Critical Active Vishal Hui MD SEROQUEL Critical Active Vishal uHi MD [...] breath Nocturnal hypoxia 799.02 Active Fabiola Johnson [employer] Hypoxemia Neck pain 723.1 Resolved Vishal [...] Active Ahmet Carbajal MD Generalized anxiety disorder Ampoule Filler well woman exam V72.31 Active Suzan Boo [...] Hui MD 2014 Vaginitis, candidal ICD-112.1 Inactive Vsihal Hui MD Other abnormal blood chemistry ICD-790.6 [...] then 1 daily for 4 days AZITHROMYCIN 49364589153 Active Suzan Boo APRN Active PREDNISONE 10 MG TABS 2 daily for 5 days then 1 daily for 5 days PREDNISONE 41973164430 Active Suzan Boo APRN Active CLONAZEPAM 1 MG ORAL TABS 1 twice a day and an additional 1 tablet every other day as needed for pseudoseizures or anxiety CLONAZEPAM 81016701552 Active Ahmet Carbajal MD Active HYDROCODONE-ACETAMINOPHEN 5-325 MG ORAL TABS 1 tab two times a day HYDROCODONE-ACETAMINOPHEN 89897964705 No Longer Active Ahmet Carbajal MD Active LAMICTAL 100 MG ORAL TABS 1 tab 2 times qd. LAMOTRIGINE 25337620483 Active Ahmet Carbajal MD Active PREDNISONE 20 MG TABS 2 daily for 5 days then 1 daily for 5 days PREDNISONE 42718385170 No Longer Active Ahmet Carbajal MD Active FLUTICASONE PROPIONATE 50 MCG/ACT SUSP 1 to 2 sprays each nostril daily for allergies FLUTICASONE PROPIONATE 93696943720 Active Tila Valenzuela Active GUAIFENESIN-CODEINE 100-10 MG/5ML SYRP 5ml every 4 to 6 hours as needed for cough GUAIFENESIN-CODEINE 98966421277 Active Ahmet Carbajal MD Active BENADRYL 25 MG CAP 4 po at bedtime for insomnia DIPHENHYDRAMINE HCL 18934002039 No Longer Active Ahmet Carbajal MD Active ADVAIR DISKUS 250-50 MCG/DOSE INH AEPB 1 puff twice a day for asthma FLUTICASONE-SALMETEROL 13808757325 No Longer Active Ahmet Carbajal MD Active KLONOPIN 1 MG ORAL TABS 1 tab po TID CLONAZEPAM 37298308093 No Longer Active Ahmet Carbajal MD Active ABILIFY MAINTENA 400 MG IM SUSR 400mg injection every 26 days ARIPIPRAZOLE 41028929980 No Longer Active Ahmet Carbajal MD Active HALOPERIDOL 10 MG ORAL TABS 1 tab q.d HALOPERIDOL 43930128030 Active Ahmet Carbajal MD Active ASPIRIN 325 MG ORAL TABS 1 tab q.d ASPIRIN 74553309573 Active Ahmet Carbajal MD Active TRAMADOL HCL 50 MG TABS 1/2-1 tab TID PRN TRAMADOL HCL 09483907892 No Longer Active Ahmet Carbajal MD Active BACTRIM DS 800-160 MG TABS 1 twice a day SULFAMETHOXAZOLE- TRIMETHOPRIM 22198152115 No Longer Active Ahmet Carbajal MD Active PROAIR HFA 108 (90 BASE) MCG/ACT AERS 2 puffs four times a day as needed 2015 ALBUTEROL SULFATE 40408375983 Active Ahmet Carbajal MD Active EQ NICOTINE 21 MG/24HR TRANS PT24 Apply daily to stop smoking NICOTINE 34840351863 Active Ahmet Carbajal MD Active MONISTAT 7 COMBO PACK WOODROW 100 & 2 MG-% (9GM) VAG KIT 1 applicatorful per vagina q pm x 7 MICONAZOLE NITRATE 35932691062 No Longer Active Ahmet Carbajal MD Active FLAGYL 500 MG TAB 1 tablet by mouth bid METRONIDAZOLE 64684308289 No Longer Active Ahmet Carbajal MD Active OXYCODONE HCL ER 10 MG ORAL T12A 1/2 tab by mouth every 4 hours prn OXYCODONE HCL 42606911732 No Longer Active Ahmet Carbajal MD Active METHYLPREDNISOLONE 4 MG ORAL TABS po daily METHYLPREDNISOLONE 20703607268 No Longer Active Ahmet Carbajal MD Active LEVOFLOXACIN 500 MG ORAL TABS po daily LEVOFLOXACIN 29461145836 No Longer Active Ahmet Carbajal MD Active VIIBRYD 10 MG ORAL TABS Take 1 tablet once a day VILAZODONE HCL 67552266615 No Longer Active Ahmet Carbajal MD Active TOPAMAX 50 MG ORAL TABS 1 tab twice daily TOPIRAMATE 70254450498 No Longer Active Ahmet Carbajal MD Active DICLOFENAC SODIUM 50 MG TBEC 1 tablet by mouth four times daily PRN Pain 2015 DICLOFENAC SODIUM 52850001970 No Longer Active Ahmet Carbajal MD Active ADZENYS XR-ODT 6.3 MG ORAL TBED 1 tab po daily for ADHD AMPHETAMINE 76187755191 No Longer Active Ahmet Carbajal MD Active CHANTIX 1 MG TABS 1 twice a day to help quit smoking VARENICLINE TARTRATE 65588770184 No Longer Active Dipika Burgos MD Active CHANTIX STARTING MONTH EARNEST 0.5 MG X 11 & 1 MG X 42 TABS take as directed 2015 VARENICLINE TARTRATE 25523598372 No Longer Active Dipika Burgos MD Active TESLIZ PERLES 100 MG CAP 1 to 2 tablets by mouth 3 times daily as needed for cough BENZONATATE 90785853227 No Longer Active Luigi Martínez APRN Active IMITREX 50 MG ORAL TABS 0.5 po x 1 PRN Headache. May repeat dose x 1 in 2 hours if needed SUMATRIPTAN SUCCINATE 75084484232 Active Ahmet Carbajal MD Active HYDROCODONE-ACETAMINOPHEN 5-325 MG TABS 1 to 2 four times a day as needed for pain use until can be seen by specialist HYDROCODONE- ACETAMINOPHEN 20188794405 No Longer Active Vishal Hui MD Active PROAIR HFA 108 (90 BASE) MCG/ACT AERS 2 puffs four times a day as needed 2015 ALBUTEROL SULFATE 99487220739 No Longer Active Vishal Hui MD Active PREDNISONE 20 MG TABS 2 daily for 5 days then 1 daily for 5 days PREDNISONE 26089013671 No Longer Active Vishal Hui MD Active ZITHROMAX Z-EARNEST 250 MG TABS 2 today and then 1 daily for 4 days AZITHROMYCIN 97638665398 No Longer Active Vishal Hui MD Active DICLOFENAC POTASSIUM TABS Take 1 tablet twice a day (pt. is not sure of the dose.) DICLOFENAC POTASSIUM TABS 43931420267 No Longer Active Vishal Hui MD Active VERAPAMIL HCL ER 120 MG ORAL CR-TABS Take 1 tablet by mouth twice a day. VERAPAMIL HCL 99739692649 Active Vishal Hui MD Active FLAGYL 500 MG TAB 1 tablet by mouth bid METRONIDAZOLE 17793901774 No Longer Active Vishal Hui MD Active FLUTICASONE PROPIONATE 50 MCG/ACT SUSP 2 sprays each nostril daily before bed. FLUTICASONE PROPIONATE 53607686183 Active Fabiola Johnson APRN Active VALIUM 5 MG TAB Take 1-2 tablets daily DIAZEPAM 46697626734 No Longer Active Fabiola Johnson APRN Active METOPROLOL TARTRATE 25 MG ORAL TABS 1/2 tablet twice daily for heart rate and blood pressure METOPROLOL TARTRATE 06178178702 No Longer Active Fabiola Johnson APRN Active MIRALAX ORAL POWD 17GMS DAILY IN WATER POLYETHYLENE GLYCOL 3350 79034885058 Active Bertha Kofi TAMARA Active MIRALAX PACK 1 po qd PRN Constipation POLYETHYLENE GLYCOL 3350 83010053917 No Longer Active Ahmet Carbajal MD Active MINIPRESS 2 MG CAPS 4 cap po at night PRAZOSIN HCL 68655184845 No Longer Active Ahmet Carbajal MD Active PIROXICAM 20 MG CAPS 1 cap po qd PRN Pain PIROXICAM 47822944407 No Longer Active Ahmet Carbajal MD Active TRAMADOL HCL 50 MG TABS 1-2 po TID PRN Pain TRAMADOL HCL 99997854433 No Longer Active Ahmet Carbajal MD Active METOPROLOL TARTRATE 50 MG TAB 1 po bid METOPROLOL TARTRATE 91523013924 No Longer Active Ahmet Carbajal MD Active ABILIFY 15 MG ORAL TABS 1 tab daily ARIPIPRAZOLE 92294922690 No Longer Active Ahmet Carbajal MD Active PROZAC 20 MG ORAL CAPS 1 tab daily FLUOXETINE HCL 66278263300 No Longer Active Ahmet Carbajal MD Active AMBIEN 5 MG ORAL TABS 1 tab at bedtime ZOLPIDEM TARTRATE 83062481743 No Longer Active Ahmet Carbajal MD Active PREDNISONE 20 MG TAB 2 tabs daily for 4 days, 1 tab daily for 4 days, 1/2 tab daily for 4 days PREDNISONE 88944719764 No Longer Active Ahmet Carbajal MD Active KEFLEX 500 MG CAP 1 po TID x 10 days CEPHALEXIN 88784553012 No Longer Active Vishal Hui MD Active SAPHRIS 5 MG SUBL 1 po bid ASENAPINE MALEATE 20737600377 No Longer Active Luigi Martínez APRN Active LATUDA 80 MG TABS Take one by mouth daily LURASIDONE HCL 21474809357 No Longer Active Luigi Martínez APRN Active AMLODIPINE BESYLATE 5 MG TABS 1 tablet by mouth daily AMLODIPINE BESYLATE 68085475769 No Longer Active Liugi Martínez [employer] SUPERVISOR Active AMITRIPTYLINE HCL 100 MG TAB one at hs AMITRIPTYLINE HCL 10255712564 No Longer Active Vishal Hui MD Active TRAZODONE HCL 100 MG TAB take 1 at bedtime TRAZODONE HCL 60832332512 No Longer Active Vishal Hui MD Active VYVANSE 40 MG CAPS 1 daily, LISDEXAMFETAMINE DIMESYLATE 62996604998 No Longer Active Vishal Hui MD Active IBUPROFEN 600 MG TAB 1 po TID PRN IBUPROFEN 79856327562 No Longer Active Vishal Hui MD Active PROZAC 20 MG CAP Take one by mouth daily FLUOXETINE HCL 42157649348 No Longer Active Vishal Hui MD Active ZOFRAN 4 MG TABS 1 po q6hr PRN Nausea ONDANSETRON HCL Active Vishal Hui MD Active BACTRIM DS 800-160 MG TABS 1 pill by mouth twice daily SULFAMETHOXAZOLE-TRIMETHOPRIM 55948672454 No Longer Active Sahara Rodriguez MD PhD Active DIFLUCAN 150 MG TAB 1 tablet by mouth daily FLUCONAZOLE 83927012983 No Longer Active Vishal Hui MD Active TIZANIDINE HCL 4 MG TABS 1 po q6hr PRN Muscle Spasm/Back Pain TIZANIDINE HCL 49545910064 Active Vishal Hui MD Active CLINDAMYCIN HCL 150 MG CAPS 1 four times a day CLINDAMYCIN HCL 68943424456 No Longer Active Neeraj Collins MD Active KEFLEX 500 MG ORAL CAPS 1 cap QID by mouth CEPHALEXIN 81904601221 No Longer Active Neeraj Collins MD Active DIFLUCAN 150 MG TABS 1 pill every other day x 2 doses FLUCONAZOLE 15726646941 No Longer Active Sahara Rodrigeuz MD PhD Active MELATONIN 3 MG CAPS 2 po q hs MELATONIN 83018108181 No Longer Active Sahara Rodriguez MD PhD Active MULTIVITAMINS CAPS Take one by mouth daily MULTIPLE VITAMIN 86206425069 No Longer Active Sahara Rodriguez MD PhD Active BACTRIM DS 800-160 MG TAB 1 tab by mouth twice daily TRIMETHOPRIM-SULFAMETHOXAZOLE 99482633772 No Longer Active Sahara Rodriguez MD PhD Active [facility] PROBIOTIC ORAL CHEW 2 daily po PROBIOTIC PRODUCT 57744050218 No Longer Active Sahara Rodriguez MD PhD Active BACTRIM DS 800-160 MG TABS 1 po BID x 7 days SULFAMETHOXAZOLE-TRIMETHOPRIM 85073071964 No Longer Active Vishal Hui MD Active CHANTIX STARTING MONTH EARNEST 0.5 MG X 11 & 1 MG X 42 TABS 0.5mg daily for 3 days , then 0.5mg BID for 4 days, then 1mg BID VARENICLINE TARTRATE 15027560281 No Longer Active TAMARA Gray Active VERAPAMIL HCL CR 120 MG TAB CR 1 po bid VERAPAMIL HCL 67845226386 No Longer Active Vishal Hui MD Active METOPROLOL SUCCINATE 50 MG TB24 1 tablet by mouth daily METOPROLOL SUCCINATE 57965587243 No Longer Active Vishal Hui MD Active SAPHRIS 10 MG SUBL 1 tab po bid ASENAPINE MALEATE 60154091027 No Longer Active Vishal Hui MD Active LISINOPRIL 20 MG TABS 1 tab po qd LISINOPRIL 16469262911 No Longer Active Vishal Hui MD Active LATUDA 20 MG TABS Take one by mouth daily LURASIDONE HCL 15731096775 No Longer Active Vishal Hui MD Active TRAZODONE HCL 50 MG TABS 1/2 tab po qd prn for anxiety TRAZODONE HCL 75659414923 No Longer Active Vishal Hui MD Active OMEPRAZOLE 20 MG TBEC 1 po q a.m. 30min prior to first food intake OMEPRAZOLE 74391319670 Active Vishal Hui MD Active RANITIDINE HCL 150 MG CAPS 1 twice a day RANITIDINE HCL 58558410685 Active Jioral Messilebron [employer]PERVISOR Active LINZESS 290 MCG CAPS Take one by mouth daily LINACLOTIDE 50274279423 No Longer Active Vishal Hui MD Active SAPHRIS 5 MG SUBL 1 tab po qd ASENAPINE MALEATE 24318823795 No Longer Active Vishal Hui MD Active ZALEPLON 10 MG CAPS 1 cap po every other night ZALEPLON 42377360475 No Longer Active Vishal Hui MD Active LYRICA 50 MG CAPS 1 tab po TID PREGABALIN 00775110540 No Longer Active Vishal Hui MD Active LORATADINE 10 MG TABS 1 tab po qd LORATADINE 92747194564 No Longer Active Vishal Hui MD Active VERAPAMIL HCL ER 180 MG CR-TABS 1 tab po bid VERAPAMIL HCL 85670003588 No Longer Active Vishal Hui MD Active MIRALAX POWD 1 capfull once daily POLYETHYLENE GLYCOL 3350 89354872677 No Longer Active Vishal Hui MD Active PREDNISONE 20 MG TABS 1 tab po qd PREDNISONE 39638821237 No Longer Active Renzo Thornton DO Active LEVOFLOXACIN 500 MG TABS 1 tab po qd LEVOFLOXACIN 52274826055 No Longer Active Renzo Thornton DO Active BUSPIRONE HCL 15 MG TABS 1 tab po TID BUSPIRONE HCL 96197071696 No Longer Active Renzo Thornton DO Active BENZTROPINE MESYLATE 1 MG TABS 1 tab po qd BENZTROPINE MESYLATE 51747139233 No Longer Active Renzo Thornton DO Active ATENOLOL 25 MG TABS 1 tab po qd ATENOLOL 72157880000 No Longer Active Renzo Thornton DO Active ESCITALOPRAM OXALATE 20 MG TABS 1 tab po qd ESCITALOPRAM OXALATE 92719371923 No Longer Active Renzo Thornton DO Active ADVAIR DISKUS 250-50 MCG/DOSE AEPB 1 puff BID FLUTICASONE-SALMETEROL 86788622127 No Longer Active Renzo Thornton DO Active PREDNISONE 20 MG TAB 2 tabs daily for 3 days, 1 tab daily for 3 days, 1/2 tab daily for 2 days PREDNISONE 22448213873 No Longer Active Vishal Hui MD Active CEFDINIR 300 MG CAPS by mouth twice a day CEFDINIR 91830607523 No Longer Active Vishal Hui MD Active LANSOPRAZOLE 30 MG CPDR 1 cap po qd LANSOPRAZOLE 97522352696 No Longer Active Vishal Hui MD Active BACLOFEN 20 MG TABS 1 tab po tid BACLOFEN 68641183167 No Longer Active Vishal Hui MD Active ADVAIR DISKUS 250-50 MCG/DOSE AEPB 1 puff BID ADVAIR DISKUS 250-50 MCG/DOSE AEPB FLUTICASONE-SALMETEROL Inactive ESCITALOPRAM OXALATE 20 MG TABS 1 tab po qd ESCITALOPRAM OXALATE 20 MG TABS 753908 ESCITALOPRAM OXALATE Inactive ATENOLOL 25 MG TABS 1 tab po qd ATENOLOL 25 MG TABS 242382 ATENOLOL Inactive BENZTROPINE MESYLATE 1 MG TABS 1 tab po qd BENZTROPINE MESYLATE 1 MG TABS 736198 BENZTROPINE MESYLATE Inactive BUSPIRONE HCL 15 MG TABS 1 tab po TID BUSPIRONE HCL 15 MG TABS 748133 BUSPIRONE HCL Inactive LEVOFLOXACIN 500 MG TABS 1 tab po qd LEVOFLOXACIN 500 MG TABS 512596 LEVOFLOXACIN Inactive PREDNISONE 20 MG TABS 1 tab po qd PREDNISONE 20 MG TABS 451395 PREDNISONE Inactive MIRALAX POWD 1 capfull once daily MIRALAX POWD 418225 POLYETHYLENE GLYCOL 3350 Inactive VERAPAMIL HCL ER 180 MG CR-TABS 1 tab po bid VERAPAMIL HCL ER 180 MG CR-TABS VERAPAMIL HCL Inactive LORATADINE 10 MG TABS 1 tab po qd LORATADINE 10 MG TABS 282542 LORATADINE Inactive LYRICA 50 MG CAPS 1 tab po TID LYRICA 50 MG CAPS PREGABALIN Inactive ZALEPLON 10 MG CAPS 1 cap po every other night ZALEPLON 10 MG CAPS 508086 ZALEPLON Inactive SAPHRIS 5 MG SUBL 1 tab po qd SAPHRIS 5 MG SUBL ASENAPINE MALEATE Inactive TRAZODONE HCL 50 MG TABS 1/2 tab po qd prn for anxiety TRAZODONE HCL 50 MG TABS 890689 TRAZODONE HCL Inactive LATUDA 20 MG TABS Take one by mouth daily LATUDA 20 MG TABS LURASIDONE HCL Inactive LISINOPRIL 20 MG TABS 1 tab po qd LISINOPRIL 20 MG TABS 126048 LISINOPRIL Inactive SAPHRIS 10 MG SUBL 1 [...] twice daily BACTRIM DS 800-160 MG TAB 166834 TRIMETHOPRIM-SULFAMETHOXAZOLE Inactive MULTIVITAMINS CAPS Take one by mouth daily MULTIVITAMINS CAPS MULTIPLE VITAMIN Inactive MELATONIN 3 MG CAPS 2 po q hs MELATONIN 3 MG CAPS 19950526 MELATONIN Inactive KEFLEX 500 MG ORAL CAPS 1 cap QID by mouth KEFLEX 500 MG ORAL CAPS 130084 CEPHALEXIN Inactive CLINDAMYCIN HCL 150 MG CAPS 1 four times a day CLINDAMYCIN HCL 150 MG CAPS 133567 CLINDAMYCIN HCL Inactive DIFLUCAN 150 MG TAB 1 tablet by mouth daily DIFLUCAN 150 MG TAB 383518 FLUCONAZOLE Inactive PROZAC 20 MG CAP Take one by mouth daily PROZAC 20 MG CAP 129839 FLUOXETINE HCL Inactive IBUPROFEN 600 MG TAB 1 po TID PRN IBUPROFEN 600 MG TAB 392594 IBUPROFEN Inactive VYVANSE 40 MG CAPS 1 daily, VYVANSE 40 MG CAPS LISDEXAMFETAMINE DIMESYLATE Inactive TRAZODONE HCL 100 MG TAB take 1 at bedtime TRAZODONE HCL 100 MG TAB 326185 TRAZODONE HCL Inactive AMITRIPTYLINE HCL 100 MG TAB one at hs AMITRIPTYLINE HCL 100 MG TAB 604808 AMITRIPTYLINE HCL Inactive AMLODIPINE BESYLATE 5 MG TABS 1 tablet by mouth daily AMLODIPINE BESYLATE 5 MG TABS 522097 AMLODIPINE BESYLATE Inactive LATUDA 80 MG TABS Take one by mouth daily LATUDA 80 MG TABS LURASIDONE HCL Inactive SAPHRIS 5 MG SUBL 1 po bid SAPHRIS 5 MG SUBL ASENAPINE MALEATE Inactive PREDNISONE 20 MG TAB 2 tabs daily for 4 days, 1 tab daily for 4 days, 1/2 tab daily for 4 days PREDNISONE 20 MG TAB 319230 PREDNISONE Inactive AMBIEN 5 MG ORAL TABS 1 tab at bedtime AMBIEN 5 MG ORAL TABS 365429 ZOLPIDEM TARTRATE Inactive PROZAC 20 MG ORAL CAPS 1 tab daily PROZAC 20 MG ORAL CAPS 994051 FLUOXETINE HCL Inactive ABILIFY 15 MG ORAL TABS 1 tab daily ABILIFY 15 MG ORAL TABS 543154 ARIPIPRAZOLE Inactive METOPROLOL TARTRATE 50 MG TAB 1 po bid METOPROLOL TARTRATE 50 MG TAB 230217 METOPROLOL TARTRATE Inactive TRAMADOL HCL 50 MG TABS 1-2 po TID PRN Pain TRAMADOL HCL 50 MG TABS 662744 TRAMADOL HCL Inactive PIROXICAM 20 MG CAPS 1 cap po qd PRN Pain PIROXICAM 20 MG CAPS 089755 PIROXICAM Inactive MINIPRESS 2 MG CAPS 4 cap po at night MINIPRESS 2 MG CAPS 387533 PRAZOSIN HCL Inactive MIRALAX PACK 1 po qd PRN Constipation MIRALAX PACK 294877 POLYETHYLENE GLYCOL 3350 Inactive METOPROLOL TARTRATE 25 MG ORAL TABS 1/2 tablet twice daily for heart rate and blood pressure METOPROLOL TARTRATE 25 MG ORAL TABS 875020 METOPROLOL TARTRATE Inactive VALIUM 5 MG TAB Take 1-2 tablets daily VALIUM 5 MG TAB 585424 DIAZEPAM Inactive FLAGYL 500 MG TAB 1 tablet by mouth bid FLAGYL 500 MG TAB 895423 METRONIDAZOLE Inactive DICLOFENAC POTASSIUM TABS Take 1 tablet twice a day (pt. is not sure of the dose.) DICLOFENAC POTASSIUM TABS DICLOFENAC POTASSIUM TABS Inactive ZITHROMAX Z-EARNEST 250 MG TABS 2 today and then 1 daily for 4 days ZITHROMAX Z-EARNEST 250 MG TABS 5050941 AZITHROMYCIN Inactive PREDNISONE 20 MG TABS 2 daily for 5 days then 1 daily for 5 days PREDNISONE 20 MG TABS 675959 PREDNISONE Inactive PROAIR HFA 108 (90 BASE) MCG/ACT AERS 2 puffs four times a day as needed 2015 PROAIR HFA 108 (90 BASE) MCG/ACT AERS ALBUTEROL SULFATE Inactive HYDROCODONE-ACETAMINOPHEN 5-325 MG TABS 1 to 2 four times a day as needed for pain use until can be seen by specialist HYDROCODONE- ACETAMINOPHEN 5-325 MG TABS 807465 HYDROCODONE-ACETAMINOPHEN Inactive TESSALON PERLES 100 MG CAP 1 to 2 tablets by mouth 3 times daily as needed for cough TESSALON PERLES 100 MG CAP 822065 BENZONATATE Inactive CHANTIX STARTING MONTH EARNEST 0.5 [...] Pain 2015 DICLOFENAC SODIUM 50 MG TBEC 753818 DICLOFENAC SODIUM Inactive TOPAMAX 50 MG ORAL TABS 1 tab twice daily TOPAMAX 50 MG ORAL TABS 834324 TOPIRAMATE Inactive VIIBRYD 10 MG ORAL TABS Take 1 tablet once a day VIIBRYD 10 MG ORAL TABS VILAZODONE HCL Inactive LEVOFLOXACIN 500 MG ORAL TABS po daily LEVOFLOXACIN 500 MG ORAL TABS 748028 LEVOFLOXACIN Inactive METHYLPREDNISOLONE 4 MG ORAL TABS po daily METHYLPREDNISOLONE 4 MG ORAL TABS 600086 METHYLPREDNISOLONE Inactive OXYCODONE HCL ER 10 MG ORAL T12A 1/2 tab by mouth every 4 hours prn OXYCODONE HCL ER 10 MG ORAL T12A OXYCODONE HCL Inactive FLAGYL 500 MG TAB 1 tablet by mouth bid FLAGYL 500 MG TAB 458884 METRONIDAZOLE Inactive MONISTAT 7 COMBO PACK WOODROW 100 & 2 MG-% (9GM) VAG KIT 1 applicatorful per vagina q pm x 7 MONISTAT 7 COMBO PACK WOODROW 100 & 2 MG-% (9GM) VAG KIT MICONAZOLE NITRATE Inactive BACTRIM DS 800-160 MG TABS 1 twice a day BACTRIM DS 800-160 MG TABS 586585 SULFAMETHOXAZOLE-TRIMETHOPRIM Inactive TRAMADOL HCL 50 MG TABS 1/2-1 tab TID PRN TRAMADOL HCL 50 MG TABS 790134 TRAMADOL HCL Inactive ABILIFY MAINTENA 400 MG IM SUSR 400mg injection every 26 days ABILIFY MAINTENA 400 MG IM SUSR ARIPIPRAZOLE Inactive KLONOPIN 1 MG ORAL TABS 1 tab po TID KLONOPIN 1 MG ORAL TABS 792803 CLONAZEPAM Inactive ADVAIR DISKUS 250-50 MCG/DOSE INH AEPB 1 puff twice a day for asthma ADVAIR DISKUS 250-50 MCG/DOSE INH AEPB FLUTICASONE- SALMETEROL Inactive BENADRYL 25 MG CAP 4 po at bedtime for insomnia BENADRYL 25 MG CAP DIPHENHYDRAMINE HCL Inactive PREDNISONE 20 MG TABS 2 daily for 5 days then 1 daily for 5 days PREDNISONE 20 MG TABS 871346 PREDNISONE Inactive HYDROCODONE-ACETAMINOPHEN 5-325 MG ORAL TABS 1 tab two times a day HYDROCODONE-ACETAMINOPHEN 5-325 MG ORAL TABS 385883 HYDROCODONE-ACETAMINOPHEN Inactive CEFDINIR 300 MG CAPS by mouth twice a day CEFDINIR 300 MG CAPS 672063 CEFDINIR Inactive PREDNISONE 20 MG TAB 2 tabs daily for 3 days, 1 tab daily for 3 days, 1/2 tab daily for 2 days PREDNISONE 20 MG TAB 893247 PREDNISONE Inactive BACTRIM DS 800-160 MG TABS 1 po BID x 7 days BACTRIM DS 800-160 MG TABS 465625 SULFAMETHOXAZOLE-TRIMETHOPRIM Inactive DIFLUCAN 150 MG TABS 1 pill every other day x 2 doses DIFLUCAN 150 MG TABS 681378 FLUCONAZOLE Inactive BACTRIM DS 800-160 MG TABS 1 pill by mouth twice daily BACTRIM DS 800-160 MG TABS 014047 SULFAMETHOXAZOLE-TRIMETHOPRIM Inactive KEFLEX 500 MG CAP 1 po TID x 10 days KEFLEX 500 MG CAP 786552 CEPHALEXIN Inactive Advance Directives Directive Description Start [...] 369 10^3/MM^3 10*3/mm3 142-424 Lab Report: Chlamydia/GC APTIMA/[id number] - Lab chlamydia DNA probe NOT DETECTED NOT DETECTED Lab Report: Chlamydia/GC APTIMA/[id number] - Microbiology Neisseria gonorrhoeae DNA probe NOT DETECTED NOT DETECTED Lab Report: Chlamydia/GC APTIMA/87132, Urinalysis, Complete, with Reflex ... - Lab chlamydia DNA probe NOT DETECTED NOT DETECTED Lab Report: Chlamydia/GC APTIMA/73028, Urinalysis, Complete, with Reflex ... - Microbiology Neisseria gonorrhoeae DNA probe NOT DETECTED NOT DETECTED Lab Report: Chlamydia/GC APTIMA/29627, Urinalysis, Complete, with Reflex ... - Urinalysis microalbumin/total urine volume 2 mg/L Units converted. See lab report for original value. microalbumin/creatinine ratio, urine 9 MCG/MG CREAT mg/L <30 Lab Report: Comp. Metabolic Panel - Chemistry sodium, serum 142 mmol/L 899-364 5889/06/08 carbon dioxide, venous blood 27.6 mmol/L 21.0-32.0 potassium, serum 4.0 mmol/L 3.5-5.2 chloride, serum 105 mmol/L 98-107 blood glucose 95 mg/dL 65-110 urea nitrogen, blood 8 mg/dL 7-18 creatinine, serum 0.75 mg/dL 0.55-1.30 alanine aminotransferase (SGPT), serum 49 U/L -78 aspartate aminotransferase (SGOT), serum 28 U/L 15-37 calcium, serum 9.4 mg/dL 8.5-10.1 bilirubin, serum, total 0.30 mg/dL 0.00-1.00 sodium, serum 140 mmol/L 491-352 8706/08/08 carbon dioxide, venous blood 33.7 mmol/L 21.0-32.0 [...] mg/dL Encounters Code Encounter Date Provider Facility CPT-41203 Level 4 Est. Patient 10:20:54 [facility] Suzan Boo [facility] CPT-99932 Level 3 Est. Patient 11:47:37 [employer] Ahmet Carbajal MD [facility] CPT-40920 Level 3 Est. Patient 10:40:11 [employer] Ahmet Carbajal MD [facility] CPT-05933 Level 3 Est. Patient 15:07:06 [employer] Neeraj Collins MD [facility] CPT-76650 Level 4 Est. Patient 14:45:00 [employer] Ahmet Carbajal MD [facility] CPT-71922 Level 3 Est. Patient 13:59:59 CDT Luigi Martínez [facility] CPT-96697 Level 3 Est. Patient 18:18:53 CDT Neeraj Collins MD [facility] CPT-09229 Level 3 Est. Patient 15:50:44 CDT Vishal Hui MD [facility] CPT-14665 Level 3 Est. Patient 11:36:17 CDT Ahmet Carbajal MD [facility] CPT-63240 Level 3 Est. Patient 13:29:16 CDT Vishal Hui MD [facility] CPT-64422 Level 3 Est. Patient 14:27:52 CDT Neeraj Collins MD [facility] CPT-08867 Level 3 Est. Patient 08:56:03 CDT Luigi Martínez [facility] CPT-54361 Level 4 Est. Patient 12:11:48 CDT Fabiola Johnson [facility] CPT-46058 Level 3 New Patient 16:53:37 CDT Albert Caldera MD [facility] CPT-93757 Level 3 Est. Patient 11:25:49 CDT Renzo Thornton DO [facility] CPT-81816 Level 3 Est. Patient 15:22:01 CDT Ahmet Carbajal MD [facility] CPT-92638 Level 4 Est. Patient 09:00:51 [employer] Vishal Hui MD [facility] CPT-65980 Level 3 Est. Patient 11:37:33 [employer] Vishal Hui MD [facility] CPT-21688 Level 3 Est. Patient 08:41:09 [employer] Vishal Hui MD [facility] CPT-23050 Level 4 Est. Patient 10:19:35 [employer] Vishal Hui MD [facility] CPT-82168 Level 3 Est. Patient 13:35:45 CDT Vishal Hui MD [facility] CPT-41291 Level 4 Est. Patient 10:08:37 CDT Vishal Hui MD [facility] CPT-70948 Level 3 Est. Patient 11:22:10 CDT Vishal Hui MD [facility] CPT-75531 Level 3 Est. Patient 11:03:32 CDT Sahara Rodriguez MD [facility] CPT-89725 Level 3 Est. Patient 09:41:35 CDT Vishal Hui MD [facility] CPT-69676 Level 3 Est. Patient 12:00:41 CDT Neeraj Collins MD [facility] CPT-56496 Level 3 Est. Patient 09:16:24 CDT iVshal Hui MD [facility] CPT-77756 Level 4 Est. Patient 13:59:09 CDT Neeraj Collins MD [facility] CPT-92112 Level 3 Est. Patient 15:19:43 CDT Renzo Thornton DO [facility] CPT-88056 Level 3 Est. Patient 18:10:26 CDT Sahara Rodriguez MD [facility]-91280 Level 3 Est. Patient 14:49:50 CDT Vishal Hui MD [facility] CPT-74166 Level 4 Est. Patient 18:41:46 CDT Neeraj Collins MD [facility] CPT-05229 Level 4 Est. Patient 09:18:38 [employer] Vishal Hui MD [facility] CPT-13783 Level 3 Est. Patient 14:43:55 [employer] Vishal Hui MD [facility] CPT-31622 Level 3 Est. Patient 15:26:33 [employer] Sahara Rodriguez MD [facility] CPT-38647 Level 3 Est. Patient 10:32:14 [employer] Vishal Hui MD [facility] CPT-07707 Level 3 Est. Patient 15:12:52 [employer] Vishal Hui MD [facility] CPT-22962 Level 4 Est. Patient 09:19:27 CDT Vishal Hui MD [facility] CPT-16662 Level 3 Est. Patient 15:53:00 CDT Renzo Barajas [facility] CPT-21534 Level 3 Est. Patient 15:50:30 CDT Renzo Thornton [facility] CPT-65964 Level 3 Est. Patient 16:55:24 CDT Vishal Hui MD [facility] Procedures Code Procedure Name Date Entry Date Standard Description CPT-G0439 [facility] Annual Wellness Exam 09:30:58 [employer] CPT-55032 TSH - LAB USE ONLY 08:50:26 [employer] CPT-11968 CBC - LAB USE ONLY 08:50:26 [employer] CPT-94002 Venipuncture Draw Fee 08:50:26 [employer] CPT-44193 Abx/Therapy Injection 17:34:30 [employer] CPT-64689 Nexplanon Removal with Reinsertion 14:09:32 CDT CPT-J7307 Nexplanon (Implant) 14:09:32 CDT CPT-OV Office Visit 14:09:32 CDT CPT-37308 UA w micro - LAB USE ONLY 16:21:13 CDT CPT-59878 Wet Mount - LAB USE ONLY 16:21:13 CDT CPT-40623 First Vx - Ix admin for Medicare patients 14:37:47 CDT CPT-44858 Fluzone Preservative Free Intramuscular Suspension 14:37 :47 CDT CPT-71482 Abx/Therapy Injection 13:54:22 CDT CPT-64815 Abx/Therapy Injection 08:47:09 CDT CPT-60621 Abx/Therapy Injection 13:29:56 CDT CPT-83892 Abx/Therapy Injection 08:36:16 CDT CPT-60765 Wet Mount - LAB USE ONLY 17:44:58 CDT CPT-60427 UA w micro - LAB USE ONLY 17:44:58 CDT CPT-58456 CMP - LAB USE ONLY 17:44:58 CDT CPT-51323 Venipuncture Draw Fee 17:44:58 CDT CPT-91207 Cervical Min 4V - XRAY USE ONLY 09:01:40 CDT CPT-07633 Chest 2V Frontal and Lat - XRAY USE ONLY 11:06:31 CDT CPT-71271 EKG Trac and Interp - XRAY USE ONLY 11:31:43 CDT 08/26 CPT-J3420 Vitamin B12 1000mcg (Cyanocobalamin) 08:10:26 [employer] 04/12 CPT-79451 Abx/Therapy Injection 08:10:26 [employer] CPT-G0438 Initial Annual Wellness Exam 19:01:01 [employer] CPT-J3420 Vitamin B12 1000mcg (Cyanocobalamin) 16:57:46 CDT 08/14 CPT-21115 Recombivax HB Injection Suspension 5 MCG/0.5ML 08:37:50 [employer] CPT-47686 Immunization Single Admin 08:37:50 [employer] CPT-J3420 Vitamin B12 1000mcg (Cyanocobalamin) 08:32:16 [employer] 03/11 CPT-07870 Abx/Therapy Injection 08:32:16 [employer] CPT-31680 Chest 2V Frontal and Lat 11:46:38 [employer] CPT-87209 Venipuncture Draw Fee 09:12:45 [employer] CPT-J3420 Vitamin B12 1000mcg (Cyanocobalamin) 08:50:15 [employer] 02/08 CPT-83419 Abx/Therapy Injection 08:50:15 [employer] CPT-Cryo Cryotherapy 10:19:35 [employer] CPT-000 Give Appropriate Flu Vaccine 09:22:16 CDT CPT-J3420 Vitamin B12 1000mcg (Cyanocobalamin) 19:08:57 CDT 01/11 CPT-58518 Abx/Therapy Injection 19:08:57 CDT CPT-J3420 Vitamin B12 1000mcg (Cyanocobalamin) 08:19:08 CDT 12/11 CPT-12454 Abx/Therapy Injection 08:19:08 CDT CPT-J3420 Vitamin B12 1000mcg (Cyanocobalamin) 14:48:00 CDT 11/09 CPT-74057 Abx/Therapy Injection 14:47:59 CDT CPT-J3420 Vitamin B12 1000mcg (Cyanocobalamin) 08:34:04 CDT 10/09 CPT-15946 Abx/Therapy Injection 08:34:04 CDT CPT-J3420 Vitamin B12 1000mcg (Cyanocobalamin) 09:18:52 CDT 09/11 CPT-17397 Abx/Therapy Injection 09:18:52 CDT CPT-J3420 Vitamin B12 1000mcg (Cyanocobalamin) 08:35:44 CDT 09/04 CPT-71656 Abx/Therapy Injection 08:35:44 CDT CPT-36609 Immunization Single Admin 11:07:16 CDT CPT-33099 Hepatitis B adult IM 11:07:16 CDT CPT-J3420 Vitamin B12 1000mcg (Cyanocobalamin) 11:00:49 CDT 08/28 CPT-J1040 Depo Medrol 80 mg (Methyl Prednisolone Acetate) 11:00: 49 CDT CPT-72075 Abx/Therapy Injection 11:00:49 CDT CPT-J1040 Depo Medrol 80 mg (Methyl Prednisolone Acetate) 09:16: 23 CDT CPT-J3420 Vitamin B12 1000mcg (Cyanocobalamin) 08:27:05 CDT 08/20 CPT-02997 Abx/Therapy Injection 08:27:05 CDT CPT-58322 Recombivax HB Injection Suspension 5 MCG/0.5ML 10:00:41 CDT CPT-13517 Administration single or combination vaccine inc oral 10 :00:41 CDT CPT-02801 Sono transvag pelvis non OB uterus ovaries cervix 16:36: 57 CDT CPT-14447 LS spine comp w obliq 09:50:55 [employer] CPT-91399 Abd compl w upright 09:50:55 [employer] CPT-J1100 Decadron 4mg (Dexamethasone) 15:51:24 [employer] CPT-J1030 Depo Medrol 40 mg (Methyl Prednisolone Acetate) 15:51: 24 [employer] CPT-66996 Abx/Therapy Injection 15:51:24 [employer] CPT-J1100 Decadron 4mg (Dexamethasone) 15:26:33 [employer] CPT-J1030 Depo Medrol 40 mg (Methyl Prednisolone Acetate) 15:26: 33 [employer] CPT-12688 Sono retroperitoneal complete kidneys and bladder 17:15: 30 CDT CPT-42407 Abd compl w upright 16:09:25 CDT CPT-J1100 Decadron 8mg (Dexamethasone) 17:07:57 CDT CPT-02300 Abx/Therapy Injection 17:07:57 CDT CPT-J1100 Decadron 8mg (Dexamethasone) 16:55:24 CDT CPT-75570 Chest 2V Frontal and Lat 16:32:44 CDT
--- OUTSIDE RECORDS SUMMARY | 2016-11-04 22:47 | XMS REPORT | Clinical Summary ---
Author Author Admin, Dereck Organization [facility] Address Unknown Phone Unavailable Allergies, Adverse Reactions, [...] Active Ahmet Carbajal MD Generalized anxiety disorder [facility] well woman exam V72.31 Active Suzan Boo [...] Jim Hui MD 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 Jim uHi MD Fatigue ICD-780.79 Jim Hui MD 2014 Vaginitis, candidal ICD-112.1 Jim Hui MD Other abnormal blood chemistry ICD-790.6 Jim Hui MD Boils, recurrent ICD-680.9 Jim Hui MD Postconcussion syndrome ICD-310.2 Jim Hui MD Nevus, 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 Jim Hui MD Encounter for removal of sutures ICD-V58.32 Jim Hui MD Personality change ICD-301.9 Jim [...] Hot flashes ICD-627.2 Inactive Vishal Hui MD Nocturnal hypoxia ICD-799.02 [...] 500 MG CAP 1 po qid CEPHALEXIN 04493053374 Active Renzo Thornton DO Active ACETAMINOPHEN-CODEINE 120-12 MG/5ML SOLN 5 ml by mouth every 4-6 hours if needed for cough ACETAMINOPHEN-CODEINE 36527581466 Active Renzo Thornton DO Active PREDNISONE 20 MG TAB 1 tablet daily x 4 days PREDNISONE 92583691962 Active Renzo Thornton DO Active FLOVENT HFA 110 MCG/ACT AERO 2 puffs inhaled b.i.d. FLUTICASONE PROPIONATE HFA 34744418496 Active Renzo Thornton DO Active TROPICAMIDE 0.5 % OPHTH SOLN 1 drop PRN eye spasms TROPICAMIDE 79233056594 Active Samantha Stephan RMA Active RISPERDAL 4 MG ORAL TABS 1 tab at bedtime RISPERIDONE 84791600786 Active Samantha Stephan RMA Active LEVAQUIN 500 MG TABS 1 daily for infection LEVOFLOXACIN 47721267835 Active Suzan Boo APRN Active TESSALON PERLES 100 MG CAPS 1 three times a day as needed for cough BENZONATATE 91183857207 Active Suzan Boo APRN Active ZOFRAN 4 MG TABS 1 po q6hr PRN Nausea ONDANSETRON HCL No Longer Active Suzan Boo APRN Active FLUTICASONE PROPIONATE 50 MCG/ACT SUSP 2 sprays each nostril daily before bed. FLUTICASONE PROPIONATE 66374273722 No Longer Active Suzan Boo APRN Active ASPIRIN 325 MG ORAL TABS 1 tab q.d ASPIRIN 33869771821 No Longer Active Suzan Boo APRN Active HALOPERIDOL 10 MG ORAL TABS 1 tab q.d HALOPERIDOL 27136333800 No Longer Active Suzan Boo APRN Active GUAIFENESIN-CODEINE 100-10 MG/5ML SYRP 5ml every 4 to 6 hours as needed for cough GUAIFENESIN-CODEINE 03715532541 No Longer Active Suzan Boo APRN Active ZITHROMAX Z-EARNEST 250 MG TABS 2 today and then 1 daily for 4 days AZITHROMYCIN 06646818189 No Longer Active Suzan Boo APRN Active PREDNISONE 10 MG TABS 2 daily for 5 days then 1 daily for 5 days PREDNISONE 91781699948 Active Suzan Boo APRN Active CLONAZEPAM 1 MG ORAL TABS 1 twice a day and an additional 1 tablet every other day as needed for pseudoseizures or anxiety CLONAZEPAM 31325561001 Active Ahmet Carbajal MD Active HYDROCODONE-ACETAMINOPHEN 5-325 MG ORAL TABS 1 tab two times a day HYDROCODONE-ACETAMINOPHEN 32991740275 No Longer Active Ahmet Carbajal MD Active LAMICTAL 100 MG ORAL TABS 1 tab 2 times qd. LAMOTRIGINE 06475832317 Active Ahmet Carbajal MD Active PREDNISONE 20 MG TABS 2 daily for 5 days then 1 daily for 5 days PREDNISONE 40812069909 No Longer Active Ahmet Carbajal MD Active FLUTICASONE PROPIONATE 50 MCG/ACT SUSP 1 to 2 sprays each nostril daily for allergies FLUTICASONE PROPIONATE 29554034668 Active Tila Nicolas Active BENADRYL 25 MG CAP 4 po at bedtime for insomnia DIPHENHYDRAMINE HCL 11504536822 No Longer Active Ahmet Carbajal MD Active ADVAIR DISKUS 250-50 MCG/DOSE INH AEPB 1 puff twice a day for asthma FLUTICASONE-SALMETEROL 49992402627 No Longer Active Ahmet Carbajal MD Active KLONOPIN 1 MG ORAL TABS 1 tab po TID CLONAZEPAM 47644980368 No Longer Active Ahmet Carbajal MD Active ABILIFY MAINTENA 400 MG IM SUSR 400mg injection every 26 days ARIPIPRAZOLE 85500922687 No Longer Active Ahmet Carbajal MD Active TRAMADOL HCL 50 MG TABS 1/2-1 tab TID PRN TRAMADOL HCL 29369837445 No Longer Active Ahmet Carbajal MD Active BACTRIM DS 800-160 MG TABS 1 twice a day SULFAMETHOXAZOLE- TRIMETHOPRIM 03555040578 No Longer Active Ahmet Carbajal MD Active PROAIR HFA 108 (90 BASE) MCG/ACT AERS 2 puffs four times a day as needed 2015 ALBUTEROL SULFATE 29691047634 Active Ahmet Carbajal MD Active EQ NICOTINE 21 MG/24HR TRANS PT24 Apply daily to stop smoking NICOTINE 09103134541 Active Ahmet Carbajal MD Active MONISTAT 7 COMBO PACK WOODROW 100 & 2 MG-% (9GM) VAG KIT 1 applicatorful per vagina q pm x 7 MICONAZOLE NITRATE 36515192299 No Longer Active Ahmet Carbajal MD Active FLAGYL 500 MG TAB 1 tablet by mouth bid METRONIDAZOLE 87330740498 No Longer Active Ahmet Carbajal MD Active OXYCODONE HCL ER 10 MG ORAL T12A 1/2 tab by mouth every 4 hours prn OXYCODONE HCL 88722691330 No Longer Active Ahmet Carbajal MD Active METHYLPREDNISOLONE 4 MG ORAL TABS po daily METHYLPREDNISOLONE 94303299804 No Longer Active Ahmet Carbajal MD Active LEVOFLOXACIN 500 MG ORAL TABS po daily LEVOFLOXACIN 19929929445 No Longer Active Ahmet Carbajal MD Active VIIBRYD 10 MG ORAL TABS Take 1 tablet once a day VILAZODONE HCL 02016209383 No Longer Active Ahmet Carbajal MD Active TOPAMAX 50 MG ORAL TABS 1 tab twice daily TOPIRAMATE 09541723012 No Longer Active Ahmet Carbajal MD Active DICLOFENAC SODIUM 50 MG TBEC 1 tablet by mouth four times daily PRN Pain 2015 DICLOFENAC SODIUM 95373003437 No Longer Active Ahmet Carbajal MD Active ADZENYS XR-ODT 6.3 MG ORAL TBED 1 tab po daily for ADHD AMPHETAMINE 07203687879 No Longer Active Ahmet Carbajal MD Active CHANTIX 1 MG TABS 1 twice a day to help quit smoking VARENICLINE TARTRATE 00768987303 No Longer Active Dipika Burgos MD Active CHANTIX STARTING MONTH EARNEST 0.5 MG X 11 & 1 MG X 42 TABS take as directed 2015 VARENICLINE TARTRATE 45319734819 No Longer Active Dipika Burgos MD Active TESSALON PERLES 100 MG CAP 1 to 2 tablets by mouth 3 times daily as needed for cough BENZONATATE 51910545687 No Longer Active Luigi Martínez APRN Active IMITREX 50 MG ORAL TABS 0.5 po x 1 PRN Headache. May repeat dose x 1 in 2 hours if needed SUMATRIPTAN SUCCINATE 53029715123 Active Ahmet Carbajal MD Active HYDROCODONE-ACETAMINOPHEN 5-325 MG TABS 1 to 2 four times a day as needed for pain use until can be seen by specialist HYDROCODONE- ACETAMINOPHEN 38386272939 No Longer Active Vishal Hui MD Active PROAIR HFA 108 (90 BASE) MCG/ACT AERS 2 puffs four times a day as needed 2015 ALBUTEROL SULFATE 43147716687 No Longer Active Vishal Hui MD Active PREDNISONE 20 MG TABS 2 daily for 5 days then 1 daily for 5 days PREDNISONE 36989549223 No Longer Active Vishal Hui MD Active ZITHROMAX Z-EARNEST 250 MG TABS 2 today and then 1 daily for 4 days AZITHROMYCIN 15467833861 No Longer Active Vishal Hui MD Active DICLOFENAC POTASSIUM TABS Take 1 tablet twice a day (pt. is not sure of the dose.) DICLOFENAC POTASSIUM TABS 58574534026 No Longer Active Vishal Hui MD Active VERAPAMIL HCL ER 120 MG ORAL CR-TABS Take 1 tablet by mouth twice a day. VERAPAMIL HCL 30015556627 Active Vishal Hui MD Active FLAGYL 500 MG TAB 1 tablet by mouth bid METRONIDAZOLE 71258096079 No Longer Active Vishal Hui MD Active VALIUM 5 MG TAB Take 1-2 tablets daily DIAZEPAM 49229445038 No Longer Active Fabiola Johnson APRN Active METOPROLOL TARTRATE 25 MG ORAL TABS 1/2 tablet twice daily for heart rate and blood pressure METOPROLOL TARTRATE 96616987286 No Longer Active Fabiola Johnson APRN Active MIRALAX ORAL POWD 17GMS DAILY IN WATER POLYETHYLENE GLYCOL 3350 24368005865 Active TAMARA Casey Active MIRALAX PACK 1 po qd PRN Constipation POLYETHYLENE GLYCOL 3350 19502477914 No Longer Active Ahmet Carbajal MD Active MINIPRESS 2 MG CAPS 4 cap po at night PRAZOSIN HCL 95940724948 No Longer Active Ahmet Carbajal MD Active PIROXICAM 20 MG CAPS 1 cap po qd PRN Pain PIROXICAM 08507078704 No Longer Active Ahmet Carbajal MD Active TRAMADOL HCL 50 MG TABS 1-2 po TID PRN Pain TRAMADOL HCL 75885926760 No Longer Active Ahmet Carbajal MD Active METOPROLOL TARTRATE 50 MG TAB 1 po bid METOPROLOL TARTRATE 12087785837 No Longer Active Ahmet Carbajal MD Active ABILIFY 15 MG ORAL TABS 1 tab daily ARIPIPRAZOLE 62283154752 No Longer Active Ahmet Carbajal MD Active PROZAC 20 MG ORAL CAPS 1 tab daily FLUOXETINE HCL 66243813756 No Longer Active Ahmet Carbajal MD Active AMBIEN 5 MG ORAL TABS 1 tab at bedtime ZOLPIDEM TARTRATE 69658268100 No Longer Active Ahmet Carbajal MD Active PREDNISONE 20 MG TAB 2 tabs daily for 4 days, 1 tab daily for 4 days, 1/2 tab daily for 4 days PREDNISONE 87125691700 No Longer Active Ahmet Carbajal MD Active KEFLEX 500 MG CAP 1 po TID x 10 days CEPHALEXIN 48405363081 No Longer Active Vishal Hui MD Active SAPHRIS 5 MG SUBL 1 po bid ASENAPINE MALEATE 08077728137 No Longer Active Jillina Frazell JOB COUNSELOR Active LATUDA 80 MG TABS Take one by mouth daily LURASIDONE HCL 73410909821 No Longer Active Jillina Frazell JOB COUNSELOR Active AMLODIPINE BESYLATE 5 MG TABS 1 tablet by mouth daily AMLODIPINE BESYLATE 81129977205 No Longer Active Jillina Frazell JOB COUNSELOR Active AMITRIPTYLINE HCL 100 MG TAB one at hs AMITRIPTYLINE HCL 97618038955 No Longer Active Vishal Hui MD Active TRAZODONE HCL 100 MG TAB take 1 at bedtime TRAZODONE HCL 75933094214 No Longer Active Vishal Hui MD Active VYVANSE 40 MG CAPS 1 daily, LISDEXAMFETAMINE DIMESYLATE 91365375878 No Longer Active Vishal Hui MD Active IBUPROFEN 600 MG TAB 1 po TID PRN IBUPROFEN 37642269295 No Longer Active Vishal Hui MD Active PROZAC 20 MG CAP Take one by mouth daily FLUOXETINE HCL 83867664956 No Longer Active Vishal Hui MD Active BACTRIM DS 800-160 MG TABS 1 pill by mouth twice daily SULFAMETHOXAZOLE-TRIMETHOPRIM 72128005971 No Longer Active Sahara Rodriguez MD PhD Active DIFLUCAN 150 MG TAB 1 tablet by mouth daily FLUCONAZOLE 43538155307 No Longer Active Vishal Hui MD Active TIZANIDINE HCL 4 MG TABS 1 po q6hr PRN Muscle Spasm/Back Pain TIZANIDINE HCL 55647769813 Active Vishal Hui MD Active CLINDAMYCIN HCL 150 MG CAPS 1 four times a day CLINDAMYCIN HCL 56635570008 No Longer Active Neeraj Collins MD Active KEFLEX 500 MG ORAL CAPS 1 cap QID by mouth CEPHALEXIN 04909873184 No Longer Active Neeraj Collins MD Active DIFLUCAN 150 MG TABS 1 pill every other day x 2 doses FLUCONAZOLE 42740829623 No Longer Active Sahara Rodriguez MD PhD Active MELATONIN 3 MG CAPS 2 po q hs MELATONIN 36829602352 No Longer Active Sahara Rodriguez MD PhD Active MULTIVITAMINS CAPS Take one by mouth daily MULTIPLE VITAMIN 52033401964 No Longer Active Sahara Rodriguez MD PhD Active BACTRIM DS 800-160 MG TAB 1 tab by mouth twice daily TRIMETHOPRIM-SULFAMETHOXAZOLE 57763149565 No Longer Active Sahara Rodriguez MD PhD Active [facility] PROBIOTIC ORAL CHEW 2 daily po PROBIOTIC PRODUCT 21930672680 No Longer Active Sahara Rodriguez MD PhD Active BACTRIM DS 800-160 MG TABS 1 po BID x 7 days SULFAMETHOXAZOLE-TRIMETHOPRIM 26728852902 No Longer Active Vishal Hui MD Active CHANTIX STARTING MONTH EARNEST 0.5 MG X 11 & 1 MG X 42 TABS 0.5mg daily for 3 days , then 0.5mg BID for 4 days, then 1mg BID VARENICLINE TARTRATE 78776617413 No Longer Active TAMARA Gray Active VERAPAMIL HCL CR 120 MG TAB CR 1 po bid VERAPAMIL HCL 88505918213 No Longer Active Vishal Hui MD Active METOPROLOL SUCCINATE 50 MG TB24 1 tablet by mouth daily METOPROLOL SUCCINATE 78116863250 No Longer Active Vishal Hui MD Active SAPHRIS 10 MG SUBL 1 tab po bid ASENAPINE MALEATE 40509692155 No Longer Active Vishal Hui MD Active LISINOPRIL 20 MG TABS 1 tab po qd LISINOPRIL 05043384130 No Longer Active Vishal Hui MD Active LATUDA 20 MG TABS Take one by mouth daily LURASIDONE HCL 75239034562 No Longer Active Vishal Hui MD Active TRAZODONE HCL 50 MG TABS 1/2 tab po qd prn for anxiety TRAZODONE HCL 55747902950 No Longer Active Vishal Hui MD Active OMEPRAZOLE 20 MG TBEC 1 po q a.m. 30min prior to first food intake OMEPRAZOLE 54045361808 Active TAMARA Casey Active RANITIDINE HCL 150 MG CAPS 1 twice a day RANITIDINE HCL 77007009900 Active Luigi Martínez APRN Active LINZESS 290 MCG CAPS Take one by mouth daily LINACLOTIDE 42063849129 No Longer Active Vishal Hui MD Active SAPHRIS 5 MG SUBL 1 tab po qd ASENAPINE MALEATE 35436085841 No Longer Active Vishal Hui MD Active ZALEPLON 10 MG CAPS 1 cap po every other night ZALEPLON 21761360625 No Longer Active Vishal Hui MD Active LYRICA 50 MG CAPS 1 tab po TID PREGABALIN 12742178729 No Longer Active Vishal Hui MD Active LORATADINE 10 MG TABS 1 tab po qd LORATADINE 72245047684 No Longer Active Vishal Hui MD Active VERAPAMIL HCL ER 180 MG CR-TABS 1 tab po bid VERAPAMIL HCL 00400307813 No Longer Active Vishal Hui MD Active MIRALAX POWD 1 capfull once daily POLYETHYLENE GLYCOL 3350 78135702142 No Longer Active Vishal Hui MD Active PREDNISONE 20 MG TABS 1 tab po qd PREDNISONE 56378481661 No Longer Active Renzo Thornton DO Active LEVOFLOXACIN 500 MG TABS 1 tab po qd LEVOFLOXACIN 60883197777 No Longer Active Renzo Thornton DO Active BUSPIRONE HCL 15 MG TABS 1 tab po TID BUSPIRONE HCL 95307689261 No Longer Active Renzo Thornton DO Active BENZTROPINE MESYLATE 1 MG TABS 1 tab po qd BENZTROPINE MESYLATE 55267922881 No Longer Active Renzo Thornton DO Active ATENOLOL 25 MG TABS 1 tab po qd ATENOLOL 95253269752 No Longer Active Renzo Thornton DO Active ESCITALOPRAM OXALATE 20 MG TABS 1 tab po qd ESCITALOPRAM OXALATE 30214290240 No Longer Active Renzo Thornton DO Active ADVAIR DISKUS 250-50 MCG/DOSE AEPB 1 puff BID FLUTICASONE-SALMETEROL 43712321186 No Longer Active Renzo Thornton DO Active PREDNISONE 20 MG TAB 2 tabs daily for 3 days, 1 tab daily for 3 days, 1/2 tab daily for 2 days PREDNISONE 28441518563 No Longer Active Vishal Hui MD Active CEFDINIR 300 MG CAPS by mouth twice a day CEFDINIR 39504703595 No Longer Active Vishal Hui MD Active LANSOPRAZOLE 30 MG CPDR 1 cap po qd LANSOPRAZOLE 38613343455 No Longer Active Vishal Hui MD Active BACLOFEN 20 MG TABS 1 tab po tid BACLOFEN 75352963685 No Longer Active Vishal Hui MD Active ADVAIR DISKUS 250-50 MCG/DOSE AEPB 1 puff BID ADVAIR DISKUS 250-50 MCG/DOSE AEPB FLUTICASONE-SALMETEROL Inactive ESCITALOPRAM OXALATE 20 MG TABS 1 tab po qd ESCITALOPRAM OXALATE 20 MG TABS 309420 ESCITALOPRAM OXALATE Inactive ATENOLOL 25 MG TABS 1 tab po qd ATENOLOL 25 MG TABS 982453 ATENOLOL Inactive BENZTROPINE MESYLATE 1 MG TABS 1 tab po qd BENZTROPINE MESYLATE 1 MG TABS 405815 BENZTROPINE MESYLATE Inactive BUSPIRONE HCL 15 MG TABS 1 tab po TID BUSPIRONE HCL 15 MG TABS 591346 BUSPIRONE HCL Inactive LEVOFLOXACIN 500 MG TABS 1 tab po qd LEVOFLOXACIN 500 MG TABS 324394 LEVOFLOXACIN Inactive PREDNISONE 20 MG TABS 1 tab po qd PREDNISONE 20 MG TABS 542172 PREDNISONE Inactive MIRALAX POWD 1 capfull once daily MIRALAX POWD 666457 POLYETHYLENE GLYCOL 3350 Inactive VERAPAMIL HCL ER 180 MG CR-TABS 1 tab po bid VERAPAMIL HCL ER 180 MG CR-TABS VERAPAMIL HCL Inactive LORATADINE 10 MG TABS 1 tab po qd LORATADINE 10 MG TABS 386811 LORATADINE Inactive LYRICA 50 MG CAPS 1 tab po TID LYRICA 50 MG CAPS PREGABALIN Inactive ZALEPLON 10 MG CAPS 1 cap po every other night ZALEPLON 10 MG CAPS 023218 ZALEPLON Inactive SAPHRIS 5 MG SUBL 1 tab po qd SAPHRIS 5 MG SUBL ASENAPINE MALEATE Inactive TRAZODONE HCL 50 MG TABS 1/2 tab po qd prn for anxiety TRAZODONE HCL 50 MG TABS 035316 TRAZODONE HCL Inactive LATUDA 20 MG TABS Take one by mouth daily LATUDA 20 MG TABS LURASIDONE HCL Inactive LISINOPRIL 20 MG TABS 1 tab po qd LISINOPRIL 20 MG TABS 212686 LISINOPRIL Inactive SAPHRIS 10 MG SUBL 1 [...] twice daily BACTRIM DS 800-160 MG TAB 974552 TRIMETHOPRIM-SULFAMETHOXAZOLE Inactive MULTIVITAMINS CAPS Take one by mouth daily MULTIVITAMINS CAPS MULTIPLE VITAMIN Inactive MELATONIN 3 MG CAPS 2 po q hs MELATONIN 3 MG CAPS 814302 MELATONIN Inactive KEFLEX 500 MG ORAL CAPS 1 cap QID by mouth KEFLEX 500 MG ORAL CAPS 257509 CEPHALEXIN Inactive CLINDAMYCIN HCL 150 MG CAPS 1 four times a day CLINDAMYCIN HCL 150 MG CAPS 19740326 CLINDAMYCIN HCL Inactive DIFLUCAN 150 MG TAB 1 tablet by mouth daily DIFLUCAN 150 MG TAB 436375 FLUCONAZOLE Inactive PROZAC 20 MG CAP Take one by mouth daily PROZAC 20 MG CAP 872152 FLUOXETINE HCL Inactive IBUPROFEN 600 MG TAB 1 po TID PRN IBUPROFEN 600 MG TAB 533695 IBUPROFEN Inactive VYVANSE 40 MG CAPS 1 daily, VYVANSE 40 MG CAPS LISDEXAMFETAMINE DIMESYLATE Inactive TRAZODONE HCL 100 MG TAB take 1 at bedtime TRAZODONE HCL 100 MG TAB 433964 TRAZODONE HCL Inactive AMITRIPTYLINE HCL 100 MG TAB one at hs AMITRIPTYLINE HCL 100 MG TAB 848139 AMITRIPTYLINE HCL Inactive AMLODIPINE BESYLATE 5 MG TABS 1 tablet by mouth daily AMLODIPINE BESYLATE 5 MG TABS 871501 AMLODIPINE BESYLATE Inactive LATUDA 80 MG TABS Take one by mouth daily LATUDA 80 MG TABS LURASIDONE HCL Inactive SAPHRIS 5 MG SUBL 1 po bid SAPHRIS 5 MG SUBL ASENAPINE MALEATE Inactive PREDNISONE 20 MG TAB 2 tabs daily for 4 days, 1 tab daily for 4 days, 1/2 tab daily for 4 days PREDNISONE 20 MG TAB 536165 PREDNISONE Inactive AMBIEN 5 MG ORAL TABS 1 tab at bedtime AMBIEN 5 MG ORAL TABS 956743 ZOLPIDEM TARTRATE Inactive PROZAC 20 MG ORAL CAPS 1 tab daily PROZAC 20 MG ORAL CAPS 474713 FLUOXETINE HCL Inactive ABILIFY 15 MG ORAL TABS 1 tab daily ABILIFY 15 MG ORAL TABS 972353 ARIPIPRAZOLE Inactive METOPROLOL TARTRATE 50 MG TAB 1 po bid METOPROLOL TARTRATE 50 MG TAB 597381 METOPROLOL TARTRATE Inactive TRAMADOL HCL 50 MG TABS 1-2 po TID PRN Pain TRAMADOL HCL 50 MG TABS 226859 TRAMADOL HCL Inactive PIROXICAM 20 MG CAPS 1 cap po qd PRN Pain PIROXICAM 20 MG CAPS 857140 PIROXICAM Inactive MINIPRESS 2 MG CAPS 4 cap po at night MINIPRESS 2 MG CAPS 008947 PRAZOSIN HCL Inactive MIRALAX PACK 1 po qd PRN Constipation MIRALAX PACK 629386 POLYETHYLENE GLYCOL 3350 Inactive METOPROLOL TARTRATE 25 MG ORAL TABS 1/2 tablet twice daily for heart rate and blood pressure METOPROLOL TARTRATE 25 MG ORAL TABS 965911 METOPROLOL TARTRATE Inactive VALIUM 5 MG TAB Take 1-2 tablets daily VALIUM 5 MG TAB 481821 DIAZEPAM Inactive FLAGYL 500 MG TAB 1 tablet by mouth bid FLAGYL 500 MG TAB 591819 METRONIDAZOLE Inactive DICLOFENAC POTASSIUM TABS Take 1 tablet twice a day (pt. is not sure of the dose.) DICLOFENAC POTASSIUM TABS DICLOFENAC POTASSIUM TABS Inactive ZITHROMAX Z-EARNEST 250 MG TABS 2 today and then 1 daily for 4 days ZITHROMAX Z-EARNEST 250 MG TABS 0869837 AZITHROMYCIN Inactive PREDNISONE 20 MG TABS 2 daily for 5 days then 1 daily for 5 days PREDNISONE 20 MG TABS 878558 PREDNISONE Inactive PROAIR HFA 108 (90 BASE) MCG/ACT AERS 2 puffs four times a day as needed 2015 PROAIR HFA 108 (90 BASE) MCG/ACT AERS ALBUTEROL SULFATE Inactive HYDROCODONE-ACETAMINOPHEN 5-325 MG TABS 1 to 2 four times a day as needed for pain use until can be seen by specialist HYDROCODONE- ACETAMINOPHEN 5-325 MG TABS 578196 HYDROCODONE-ACETAMINOPHEN Inactive TESSALON PERLES 100 MG CAP 1 to 2 tablets by mouth 3 times daily as needed for cough TESSALON PERLES 100 MG CAP 069390 BENZONATATE Inactive CHANTIX STARTING MONTH EARNEST 0.5 [...] Pain 2015 DICLOFENAC SODIUM 50 MG TBEC 638650 DICLOFENAC SODIUM Inactive TOPAMAX 50 MG ORAL TABS 1 tab twice daily TOPAMAX 50 MG ORAL TABS 481567 TOPIRAMATE Inactive VIIBRYD 10 MG ORAL TABS Take 1 tablet once a day VIIBRYD 10 MG ORAL TABS VILAZODONE HCL Inactive LEVOFLOXACIN 500 MG ORAL TABS po daily LEVOFLOXACIN 500 MG ORAL TABS 683685 LEVOFLOXACIN Inactive METHYLPREDNISOLONE 4 MG ORAL TABS po daily METHYLPREDNISOLONE 4 MG ORAL TABS 878951 METHYLPREDNISOLONE Inactive OXYCODONE HCL ER 10 MG ORAL T12A 1/2 tab by mouth every 4 hours prn OXYCODONE HCL ER 10 MG ORAL T12A OXYCODONE HCL Inactive FLAGYL 500 MG TAB 1 tablet by mouth bid FLAGYL 500 MG TAB 116940 METRONIDAZOLE Inactive MONISTAT 7 COMBO PACK WOODROW 100 & 2 MG-% (9GM) VAG KIT 1 applicatorful per vagina q pm x 7 MONISTAT 7 COMBO PACK WOODROW 100 & 2 MG-% (9GM) VAG KIT MICONAZOLE NITRATE Inactive BACTRIM DS 800-160 MG TABS 1 twice a day BACTRIM DS 800-160 MG TABS 700188 SULFAMETHOXAZOLE-TRIMETHOPRIM Inactive TRAMADOL HCL 50 MG TABS 1/2-1 tab TID PRN TRAMADOL HCL 50 MG TABS 907098 TRAMADOL HCL Inactive ABILIFY MAINTENA 400 MG IM SUSR 400mg injection every 26 days ABILIFY MAINTENA 400 MG IM SUSR ARIPIPRAZOLE Inactive KLONOPIN 1 MG ORAL TABS 1 tab po TID KLONOPIN 1 MG ORAL TABS 650880 CLONAZEPAM Inactive ADVAIR DISKUS 250-50 MCG/DOSE INH AEPB 1 puff twice a day for asthma ADVAIR DISKUS 250-50 MCG/DOSE INH AEPB FLUTICASONE- SALMETEROL Inactive BENADRYL 25 MG CAP 4 po at bedtime for insomnia BENADRYL 25 MG CAP DIPHENHYDRAMINE HCL Inactive PREDNISONE 20 MG TABS 2 daily for 5 days then 1 daily for 5 days PREDNISONE 20 MG TABS 770819 PREDNISONE Inactive HYDROCODONE-ACETAMINOPHEN 5-325 MG ORAL TABS 1 tab two times a day HYDROCODONE-ACETAMINOPHEN 5-325 MG ORAL TABS 589049 HYDROCODONE-ACETAMINOPHEN Inactive ZITHROMAX Z-EARNEST 250 MG TABS 2 today and then 1 daily for 4 days ZITHROMAX Z-EARNEST 250 MG TABS 3788284 AZITHROMYCIN Inactive GUAIFENESIN-CODEINE 100-10 MG/5ML SYRP 5ml every 4 to 6 hours as needed for cough GUAIFENESIN-CODEINE 100-10 MG/5ML SYRP 636902 GUAIFENESIN-CODEINE Inactive HALOPERIDOL 10 MG ORAL TABS 1 tab q.d HALOPERIDOL 10 MG ORAL TABS 778439 HALOPERIDOL Inactive ASPIRIN 325 MG ORAL TABS 1 tab q.d ASPIRIN 325 MG ORAL TABS 486417 ASPIRIN Inactive FLUTICASONE PROPIONATE 50 MCG/ACT SUSP 2 sprays each nostril daily before bed. FLUTICASONE PROPIONATE 50 MCG/ACT SUSP 6404858 FLUTICASONE PROPIONATE Inactive ZOFRAN 4 MG TABS 1 po q6hr PRN Nausea ZOFRAN 4 MG TABS 156118 ONDANSETRON HCL Inactive CEFDINIR 300 MG CAPS by mouth twice a day CEFDINIR 300 MG CAPS 225081 CEFDINIR Inactive PREDNISONE 20 MG TAB 2 tabs daily for 3 days, 1 tab daily for 3 days, 1/2 tab daily for 2 days PREDNISONE 20 MG TAB 367258 PREDNISONE Inactive BACTRIM DS 800-160 MG TABS 1 po BID x 7 days BACTRIM DS 800-160 MG TABS 19820521 SULFAMETHOXAZOLE-TRIMETHOPRIM Inactive DIFLUCAN 150 MG TABS 1 pill every other day x 2 doses DIFLUCAN 150 MG TABS 459997 FLUCONAZOLE Inactive BACTRIM DS 800-160 MG TABS 1 pill by mouth twice daily BACTRIM DS 800-160 MG TABS 19820521 SULFAMETHOXAZOLE-TRIMETHOPRIM Inactive KEFLEX 500 MG CAP 1 po TID x 10 days KEFLEX 500 MG CAP 406469 CEPHALEXIN Inactive Advance Directives Directive Description Start [...] % 11.0-15.0 platelet count 443 THOUSAND/UL 10*3/mm3 669-793 5416/03/01 mean platelet volume 8.2 fL 7.5-12.5 Lab [...] 369 10^3/MM^3 10*3/mm3 142-424 Lab Report: Chlamydia/GC APTIMA/[id number] - Lab chlamydia DNA probe NOT DETECTED NOT DETECTED Lab Report: Chlamydia/GC [facility]TIM[facility]/[id number] - Microbiology Neisseria gonorrhoeae DNA probe NOT DETECTED NOT DETECTED Lab Report: Chlamydia/GC [facility]/67861, Urinalysis, Complete, with Reflex ... - Lab chlamydia DNA probe NOT DETECTED NOT DETECTED Lab Report: Chlamydia/GC [facility]/[id number], Urinalysis, Complete, with Reflex ... - Microbiology Neisseria gonorrhoeae DNA probe NOT DETECTED NOT DETECTED Lab Report: Chlamydia/GC [facility]TIM[facility]/67562, Urinalysis, Complete, with Reflex ... - Urinalysis microalbumin/total urine volume 2 mg/L Units converted. See lab report for original value. microalbumin/creatinine ratio, urine 9 MCG/MG CREAT mg/L <30 Lab Report: Comp. Metabolic Panel - Chemistry blood glucose 80 mg/dL 65-110 chloride, serum 103 mmol/L 98-107 potassium, serum 5.0 mmol/L 3.5-5.2 carbon dioxide, venous blood 33.7 mmol/L 21.0-32.0 sodium, serum 140 mmol/L 802-601 2199/06/08 sodium, serum 142 mmol/L 118-623 1829/06/08 carbon dioxide, venous blood 27.6 mmol/L 21.0-32.0 [...] mg/dL Encounters Code Encounter Date Provider Facility CPT-70454 Level 3 Est. Patient 11:04:38 CDT Renzo W Norberto [facility] CPT-41673 Level 3 Est. Patient 11:15:58 PACKAGE LINER Renzo Barajas Norberto [facility] CPT-43862 Level 3 Est. Patient 15:28:23 PACKAGE LINER Suzan Boo [facility] CPT-75568 Level 4 Est. Patient 10:20:54 PACKAGE LINER Suzan Boo [facility] CPT-84158 Level 3 Est. Patient 11:47:37 PACKAGE LINER Ahmet Carbajal MD [facility]-23089 Level 3 Est. Patient 10:40:11 PACKAGE LINER Ahmet Carbajal MD [facility] CPT-05898 Level 3 Est. Patient 15:07:06 PACKAGE LINER Neeraj Collins MD [facility] CPT-73501 Level 4 Est. Patient 14:45:00 PACKAGE LINER Ahmet Carbajal MD [facility] CPT-55474 Level 3 Est. Patient 13:59:59 CDT Luigi Mart[facility]nez [facility] CPT-21234 Level 3 Est. Patient 18:18:53 CDT Neeraj Collins MD [facility]-90103 Level 3 Est. Patient 15:50:44 CDT Vishal Hui MD [facility] CPT-84241 Level 3 Est. Patient 11:36:17 CDT Ahmet Carbajal MD [facility] CPT-33735 Level 3 Est. Patient 13:29:16 CDT Vishal Hui MD [facility] CPT-51276 Level 3 Est. Patient 14:27:52 CDT Neeraj Collins MD [facility] CPT-07385 Level 3 Est. Patient 08:56:03 CDT Luigi Mart[facility]nez [facility] CPT-66761 Level 4 Est. Patient 12:11:48 CDT Fabiola Johnson [facility] CPT-50428 Level 3 New Patient 16:53:37 CDT Albert Caldera MD [facility] CPT-81222 Level 3 Est. Patient 11:25:49 CDT Renzo Thornton [facility] CPT-52262 Level 3 Est. Patient 15:22:01 CDT Ahmet Carbajal MD [facility] CPT-43830 Level 4 Est. Patient 09:00:51 PACKAGE LINER Vishal Hui MD [facility] CPT-19137 Level 3 Est. Patient 11:37:33 PACKAGE LINER Vishal Hui MD [facility] CPT-01689 Level 3 Est. Patient 08:41:09 PACKAGE LINER Vishal Hui MD [facility] CPT-46500 Level 4 Est. Patient 10:19:35 PACKAGE LINER Vishal Hui MD [facility] CPT-03651 Level 3 Est. Patient 13:35:45 CDT Vishal Hui MD [facility] CPT-06190 Level 4 Est. Patient 10:08:37 CDT Vishal Hui MD [facility] CPT-12731 Level 3 Est. Patient 11:22:10 CDT Vishal Hui MD [facility] CPT-53811 Level 3 Est. Patient 11:03:32 CDT Sahara Rodriguez MD, PhD [facility] CPT-52240 Level 3 Est. Patient 09:41:35 CDT Vishal Hui MD [facility] CPT-22162 Level 3 Est. Patient 12:00:41 CDT Neeraj Collins MD [facility] CPT-44692 Level 3 Est. Patient 09:16:24 CDT Vishal Hui MD [facility] CPT-98195 Level 4 Est. Patient 13:59:09 CDT Neeraj Collins MD [facility] CPT-70482 Level 3 Est. Patient 15:19:43 CDT Renzo Thornton [facility] CPT-59904 Level 3 Est. Patient 18:10:26 CDT Sahara Rodriguez MD PhD [facility] CPT-62965 Level 3 Est. Patient 14:49:50 CDT Vishal Hui MD [facility] CPT-15655 Level 4 Est. Patient 18:41:46 CDT Neeraj Collins MD [facility] CPT-55632 Level 4 Est. Patient 09:18:38 PACKAGE LINER Vishal uHi MD [facility] CPT-54293 Level 3 Est. Patient 14:43:55 PACKAGE LINER Vishal Hui MD [facility] CPT-79815 Level 3 Est. Patient 15:26:33 PACKAGE LINER Sahara Rodrigeuz MD PhD [facility] CPT-81584 Level 3 Est. Patient 10:32:14 PACKAGE LINER Vishal Hui MD [facility] CPT-94438 Level 3 Est. Patient 15:12:52 PACKAGE LINER Vishal Hui MD [facility] CPT-30406 Level 4 Est. Patient 09:19:27 CDT Vishal Hui MD [facility] CPT-35819 Level 3 Est. Patient 15:53:00 CDT Renzo Thornton [facility] CPT-80109 Level 3 Est. Patient 15:50:30 CDT Renzo Thornton [facility] CPT-87570 Level 3 Est. Patient 16:55:24 CDT Vishal Hui MD [facility] Procedures Code Procedure Name Date Entry Date Standard Description CPT-15031 Smoking Cessation counseling 11:15:58 PACKAGE LINER CPT-G0439 [facility] Annual Wellness Exam 09:30:58 PACKAGE LINER CPT-46972 TSH - LAB USE ONLY 08:50:26 PACKAGE LINER CPT-34251 CBC - LAB USE ONLY 08:50:26 PACKAGE LINER CPT-33934 Venipuncture Draw Fee 08:50:26 PACKAGE LINER CPT-00650 Abx/Therapy Injection 17:34:30 PACKAGE LINER CPT-14302 Nexplanon Removal with Reinsertion 14:09:32 CDT CPT-J7307 Nexplanon (Implant) 14:09:32 CDT CPT-OV Office Visit 14:09:32 CDT CPT-18903 UA w micro - LAB USE ONLY 16:21:13 CDT CPT-55626 Wet Mount - LAB USE ONLY 16:21:13 CDT CPT-99345 First Vx - Ix admin for Medicare patients 14:37:47 CDT CPT-84930 Fluzone Preservative Free Intramuscular Suspension 14:37 :47 CDT CPT-75855 Abx/Therapy Injection 13:54:22 CDT CPT-82788 Abx/Therapy Injection 08:47:09 CDT CPT-49733 Abx/Therapy Injection 13:29:56 CDT CPT-96258 Abx/Therapy Injection 08:36:16 CDT CPT-22840 Wet Mount - LAB USE ONLY 17:44:58 CDT CPT-13300 UA w micro - LAB USE ONLY 17:44:58 CDT CPT-26779 CMP - LAB USE ONLY 17:44:58 CDT CPT-56747 Venipuncture Draw Fee 17:44:58 CDT CPT-31686 Cervical Min 4V - XRAY USE ONLY 09:01:40 CDT CPT-10745 Chest 2V Frontal and Lat - XRAY USE ONLY 11:06:31 CDT CPT-63343 EKG Trac and Interp - XRAY USE ONLY 11:31:43 CDT 08/26 CPT-J3420 Vitamin B12 1000mcg (Cyanocobalamin) 08:10:26 PACKAGE LINER 04/12 CPT-09864 Abx/Therapy Injection 08:10:26 PACKAGE LINER CPT-G0438 Initial Annual Wellness Exam 19:01:01 PACKAGE LINER CPT-J3420 Vitamin B12 1000mcg (Cyanocobalamin) 16:57:46 CDT 08/14 CPT-04500 Recombivax HB Injection Suspension 5 MCG/0.5ML 08:37:50 PACKAGE LINER CPT-22863 Immunization Single Admin 08:37:50 PACKAGE LINER CPT-J3420 Vitamin B12 1000mcg (Cyanocobalamin) 08:32:16 PACKAGE LINER 03/11 CPT-91818 Abx/Therapy Injection 08:32:16 PACKAGE LINER CPT-05139 Chest 2V Frontal and Lat 11:46:38 PACKAGE LINER CPT-01283 Venipuncture Draw Fee 09:12:45 PACKAGE LINER CPT-J3420 Vitamin B12 1000mcg (Cyanocobalamin) 08:50:15 PACKAGE LINER 02/08 CPT-49839 Abx/Therapy Injection 08:50:15 PACKAGE LINER CPT-Cryo Cryotherapy 10:19:35 PACKAGE LINER CPT-000 Give Appropriate Flu Vaccine 09:22:16 CDT CPT-J3420 Vitamin B12 1000mcg (Cyanocobalamin) 19:08:57 CDT 01/11 CPT-95132 Abx/Therapy Injection 19:08:57 CDT CPT-J3420 Vitamin B12 1000mcg (Cyanocobalamin) 08:19:08 CDT 12/11 CPT-12899 Abx/Therapy Injection 08:19:08 CDT CPT-J3420 Vitamin B12 1000mcg (Cyanocobalamin) 14:48:00 CDT 11/09 CPT-68501 Abx/Therapy Injection 14:47:59 CDT CPT-J3420 Vitamin B12 1000mcg (Cyanocobalamin) 08:34:04 CDT 10/09 CPT-20414 Abx/Therapy Injection 08:34:04 CDT CPT-J3420 Vitamin B12 1000mcg (Cyanocobalamin) 09:18:52 CDT 09/11 CPT-97265 Abx/Therapy Injection 09:18:52 CDT CPT-J3420 Vitamin B12 1000mcg (Cyanocobalamin) 08:35:44 CDT 09/04 CPT-67432 Abx/Therapy Injection 08:35:44 CDT CPT-17007 Immunization Single Admin 11:07:16 CDT CPT-92814 Hepatitis B adult IM 11:07:16 CDT CPT-J3420 Vitamin B12 1000mcg (Cyanocobalamin) 11:00:49 CDT 08/28 CPT-J1040 Depo Medrol 80 mg (Methyl Prednisolone Acetate) 11:00: 49 CDT CPT-43611 Abx/Therapy Injection 11:00:49 CDT CPT-J1040 Depo Medrol 80 mg (Methyl Prednisolone Acetate) 09:16: 23 CDT CPT-J3420 Vitamin B12 1000mcg (Cyanocobalamin) 08:27:05 CDT 08/20 CPT-26251 Abx/Therapy Injection 08:27:05 CDT CPT-03684 Recombivax HB Injection Suspension 5 MCG/0.5ML 10:00:41 CDT CPT-98595 Administration single or combination vaccine inc oral 10 :00:41 CDT CPT-87519 Sono transvag pelvis non OB uterus ovaries cervix 16:36: 57 CDT CPT-30365 LS spine comp w obliq 09:50:55 PACKAGE LINER CPT-27582 Abd compl w upright 09:50:55 PACKAGE LINER CPT-J1100 Decadron 4mg (Dexamethasone) 15:51:24 PACKAGE LINER CPT-J1030 Depo Medrol 40 mg (Methyl Prednisolone Acetate) 15:51: 24 PACKAGE LINER CPT-26003 Abx/Therapy Injection 15:51:24 PACKAGE LINER CPT-J1100 Decadron 4mg (Dexamethasone) 15:26:33 PACKAGE LINER CPT-J1030 Depo Medrol 40 mg (Methyl Prednisolone Acetate) 15:26: 33 PACKAGE LINER CPT-51954 Sono retroperitoneal complete kidneys and bladder 17:15: 30 CDT CPT-31771 Abd compl w upright 16:09:25 CDT CPT-J1100 Decadron 8mg (Dexamethasone) 17:07:57 CDT CPT-31429 Abx/Therapy Injection 17:07:57 CDT CPT-J1100 Decadron 8mg (Dexamethasone) 16:55:24 CDT CPT-42459 Chest 2V Frontal and Lat 16:32:44 CDT
--- OUTSIDE RECORDS SUMMARY | 2016-11-04 22:47 | XMS REPORT ---
Author Author [employer] [facility] Medical Staff Organization [facility] Address [address] [place], [place] [address] Phone [phone] Care Team Providers Care Fisher [place] Name Role Phone TINO ABRAMS MD PP [phone] Summary purpose TRANSITION OF CARE AUTO GENERATION [...]
--- OUTSIDE RECORDS SUMMARY | 2016-11-04 22:48 | XMS REPORT | Clinical Summary ---
Author Author Admin, E Organization [employer] Address Unknown Phone Unavailable Allergies, Adverse Reactions, [...] every other day x 2 doses FLUCONAZOLE 55594226062 Active Sahara Rodriguez MD PhD Active MELATONIN 3 MG CAPS 2 po q hs MELATONIN 18157514281 No Longer Active Sahara Rodriguez MD PhD Active MULTIVITAMINS CAPS Take one by mouth daily MULTIPLE VITAMIN 66463923298 No Longer Active Sahara Rodriguez MD PhD Active BACTRIM DS 800-160 MG TAB 1 tab by mouth twice daily TRIMETHOPRIM-SULFAMETHOXAZOLE 60271831706 No Longer Active Sahara Rodriguez MD PhD Active [employer] PROBIOTIC ORAL CHEW 2 daily po PROBIOTIC PRODUCT 62238942548 No Longer Active Sahara Rodriguez MD PhD Active IBUPROFEN 600 MG TAB 1 po TID PRN IBUPROFEN 94936453246 Active Luigi Martínez [employer] Active BACTRIM DS 800-160 MG TABS 1 po BID x 7 days SULFAMETHOXAZOLE-TRIMETHOPRIM 50524461004 No Longer Active Vishal Hui MD Active CHANTIX STARTING MONTH EARNEST 0.5 MG X 11 & 1 MG X 42 TABS 0.5mg daily for 3 days , then 0.5mg BID for 4 days, then 1mg BID VARENICLINE TARTRATE 53161873200 No Longer Active TAMARA Gray Active METOPROLOL TARTRATE 50 MG TAB 1 po bid METOPROLOL TARTRATE 23338128721 Active Vishal Hui MD Active TRAZODONE HCL 100 MG TAB take 1 at bedtime TRAZODONE HCL 67521955347 Active Vishal Hui MD Active AMLODIPINE BESYLATE 5 MG TABS 1 tablet by mouth daily AMLODIPINE BESYLATE 76139852469 Active Vishal Hui MD Active VERAPAMIL HCL CR 120 MG TAB CR 1 po bid VERAPAMIL HCL 85014061168 No Longer Active Vishal Hui MD Active METOPROLOL SUCCINATE 50 MG TB24 1 tablet by mouth daily METOPROLOL SUCCINATE 96547982377 No Longer Active Vishal Hui MD Active TRAMADOL HCL 50 MG TABS 1-2 po TID PRN Pain TRAMADOL HCL 96511876814 Active Vishal Hui MD Active SAPHRIS 5 MG SUBL 1 po bid ASENAPINE MALEATE 46938943343 Active Vishal Hui MD Active SAPHRIS 10 MG SUBL 1 tab po bid ASENAPINE MALEATE 25954493290 No Longer Active Vishal Hui MD Active LISINOPRIL 20 MG TABS 1 tab po qd LISINOPRIL 23859794675 No Longer Active Vishal Hui MD Active BENADRYL 25 MG CAP 2 po tid prn anxiety DIPHENHYDRAMINE HCL 10417271194 Active Vishal Hui MD Active LATUDA 80 MG TABS Take one by mouth daily LURASIDONE HCL 20281462182 Active Vishal Hui MD Active LATUDA 20 MG TABS Take one by mouth daily LURASIDONE HCL 38918618012 No Longer Active Vishal Hui MD Active TRAZODONE HCL 50 MG TABS 1/2 tab po qd prn for anxiety TRAZODONE HCL 11460330093 No Longer Active Vishal Hui MD Active PIROXICAM 20 MG CAPS 1 cap po qd PRN Pain PIROXICAM 91010282631 Active Vishal Hui MD Active OMEPRAZOLE 20 MG TBEC 1 po q a.m. 30min prior to first food intake OMEPRAZOLE 42819844366 Active Vishal Hui MD Active RANITIDINE HCL 150 MG CAPS 1 twice a day RANITIDINE HCL 37568066142 Active Vishal Hui MD Active PROZAC 20 MG CAP Take one by mouth daily FLUOXETINE HCL 11145757051 Active Vishal Hui MD Active LINZESS 290 MCG CAPS Take one by mouth daily LINACLOTIDE 35239590816 Active Vishal Hui MD Active SAPHRIS 5 MG SUBL 1 tab po qd ASENAPINE MALEATE 62592106840 No Longer Active Vishal Hui MD Active ZALEPLON 10 MG CAPS 1 cap po every other night ZALEPLON 88633157753 No Longer Active Vishal Hui MD Active LYRICA 50 MG CAPS 1 tab po TID PREGABALIN 26801912968 No Longer Active Vishal Hui MD Active LORATADINE 10 MG TABS 1 tab po qd LORATADINE 36519164620 No Longer Active Vishal Hui MD Active VERAPAMIL HCL ER 180 MG CR-TABS 1 tab po bid VERAPAMIL HCL 61194230202 No Longer Active Vishal Hui MD Active MIRALAX POWD 1 capfull once daily POLYETHYLENE GLYCOL 3350 99181438425 No Longer Active Vishal Hui MD Active PREDNISONE 20 MG TABS 1 tab po qd PREDNISONE 58316733418 No Longer Active Renzo Thornton DO Active LEVOFLOXACIN 500 MG TABS 1 tab po qd LEVOFLOXACIN 02042146912 No Longer Active Renzo Thornton DO Active BUSPIRONE HCL 15 MG TABS 1 tab po TID BUSPIRONE HCL 18113941727 No Longer Active Renzo Thornton DO Active BENZTROPINE MESYLATE 1 MG TABS 1 tab po qd BENZTROPINE MESYLATE 93652516897 No Longer Active Renzo Thornton DO Active ATENOLOL 25 MG TABS 1 tab po qd ATENOLOL 37241439802 No Longer Active Renzo Thornton DO Active ESCITALOPRAM OXALATE 20 MG TABS 1 tab po qd ESCITALOPRAM OXALATE 46388939821 No Longer Active Renzo Thornton DO Active ADVAIR DISKUS 250-50 MCG/DOSE AEPB 1 puff BID FLUTICASONE-SALMETEROL 16306138822 No Longer Active Renzo Thornton DO Active PREDNISONE 20 MG TAB 2 tabs daily for 3 days, 1 tab daily for 3 days, 1/2 tab daily for 2 days PREDNISONE 21580387827 No Longer Active Vishal Hui MD Active CEFDINIR 300 MG CAPS by mouth twice a day CEFDINIR 30344053685 No Longer Active Vishal Hui MD Active LANSOPRAZOLE 30 MG CPDR 1 cap po qd LANSOPRAZOLE 64201576132 No Longer Active Vishal Hui MD Active TOPAMAX 25 MG TABS 1 tab po bid TOPIRAMATE 52018758789 Active Vishal Hui MD Active MINIPRESS 2 MG CAPS 1 cap po at night PRAZOSIN HCL 85248322623 Active Vishal Hui MD Active BACLOFEN 20 MG TABS 1 tab po tid BACLOFEN 14057059570 Active Vishal Hui MD Active ADVAIR DISKUS 250-50 MCG/DOSE AEPB 1 puff BID ADVAIR DISKUS 250-50 MCG/DOSE AEPB FLUTICASONE-SALMETEROL Inactive ESCITALOPRAM OXALATE 20 MG TABS 1 tab po qd ESCITALOPRAM OXALATE 20 MG TABS 147942 ESCITALOPRAM OXALATE Inactive ATENOLOL 25 MG TABS 1 tab po qd ATENOLOL 25 MG TABS 181904 ATENOLOL Inactive BENZTROPINE MESYLATE 1 MG TABS 1 tab po qd BENZTROPINE MESYLATE 1 MG TABS 952479 BENZTROPINE MESYLATE Inactive BUSPIRONE HCL 15 MG TABS 1 tab po TID BUSPIRONE HCL 15 MG TABS 439603 BUSPIRONE HCL Inactive LEVOFLOXACIN 500 MG TABS 1 tab po qd LEVOFLOXACIN 500 MG TABS 835777 LEVOFLOXACIN Inactive PREDNISONE 20 MG TABS 1 tab po qd PREDNISONE 20 MG TABS 676203 PREDNISONE Inactive MIRALAX POWD 1 capfull once daily MIRALAX POWD 334460 POLYETHYLENE GLYCOL 3350 Inactive VERAPAMIL HCL ER 180 MG CR-TABS 1 tab po bid VERAPAMIL HCL ER 180 MG CR-TABS VERAPAMIL HCL Inactive LORATADINE 10 MG TABS 1 tab po qd LORATADINE 10 MG TABS 139909 LORATADINE Inactive LYRICA 50 MG CAPS 1 tab po TID LYRICA 50 MG CAPS PREGABALIN Inactive ZALEPLON 10 MG CAPS 1 cap po every other night ZALEPLON 10 MG CAPS 678154 ZALEPLON Inactive SAPHRIS 5 MG SUBL 1 tab po qd SAPHRIS 5 MG SUBL ASENAPINE MALEATE Inactive TRAZODONE HCL 50 MG TABS 1/2 tab po qd prn for anxiety TRAZODONE HCL 50 MG TABS 424294 TRAZODONE HCL Inactive LATUDA 20 MG TABS Take one by mouth daily LATUDA 20 MG TABS LURASIDONE HCL Inactive LISINOPRIL 20 MG TABS 1 tab po qd LISINOPRIL 20 MG TABS 419135 LISINOPRIL Inactive SAPHRIS 10 MG SUBL 1 [...] for 2 days PREDNISONE 20 MG TAB 860519 PREDNISONE Inactive BACTRIM DS 800-160 MG TABS [...] Panel - Chemistry sodium, serum 141 mmol/L 745-852 6488 potassium, serum 4.3 mmol/L 3.5-5.2 chloride, serum [...] Panel - Chemistry sodium, serum 139 mmol/L 140-161 4738/12/31 potassium, serum 4.8 mmol/L 3.5-5.2 chloride, serum 106 mmol/L 98-107 carbon dioxide, venous blood 24.3 mmol/L 21.0-32.0 blood glucose 90 mg/dL 65-110 urea nitrogen, blood 16 mg/dL 7-18 creatinine, serum 1.00 mg/dL 0.60-1.30 alanine aminotransferase (SGPT), serum 41 U/L 12-78 aspartate aminotransferase (SGOT), serum 17 U/L 15-37 calcium, serum 8.6 mg/dL 8.5-10.1 bilirubin, serum, total 0.30 mg/dL 0.00-1.00 cholesterol, serum 108 mg/dL 344-393 7212/12/31 triglyceride, serum, fasting 120 mg/dL 30-200 HDL [...] semiquantitative 7.0 5.0-8.5 Lab Report: Varicella-Zoater Inga IgG,IgM/25151, HEP Be Antibody/556, RUB ... - Serology rubella antibody, serum, IgG 2.88 Encounters Code Encounter Date Provider Facility [facility]-[id number] Level 3 Est. Patient 18:10:26 CDT Sahara Rodriguez MD PhD [facility]82924 Level 3 Est. Patient 14:49:50 CDT Vishal Hui MD [facility]-87282 Level 4 Est. Patient 18:41:46 CDT Neeraj Collins MD [facility]-32007 Level 4 Est. Patient 09:18:38 [employer] Vishal Hui MD [facility]-19371 Level 3 Est. Patient 14:43:55 [employer] Vishal Hui MD [facility]-91512 Level 3 Est. Patient 15:26:33 [employer] Sahara Rodriguez MD PhD [facility]08842 Level 3 Est. Patient 10:32:14 [employer] Vishal Hui MD [facility]-25741 Level 3 Est. Patient 15:12:52 [employer] Vishal Hui MD [facility]-74589 Level 4 Est. Patient 09:19:27 CDT Vishal Hui MD [facility]-43435 Level 3 Est. Patient 15:53:00 CDT [facility] CPT-61875 Level 3 Est. Patient 15:50:30 CDT [facility] CPT-55294 Level 3 Est. Patient 16:55:24 CDT Vishal Hui MD [facility] Procedures Code Procedure Name Date Entry Date Standard Description CPT-84097 Recombivax HB Injection Suspension 5 MCG/0.5ML 10:00:41 CDT CPT-32554 Administration single or combination vaccine inc oral 10 :00:41 CDT CPT-74332 Sono transvag pelvis non OB uterus ovaries cervix 16:36: 57 CDT CPT-81636 LS spine comp w obliq 09:50:55 [employer] CPT-14919 Abd compl w upright 09:50:55 [employer] CPT-J1100 Decadron 4mg (Dexamethasone) 15:51:24 [employer] CPT-J1030 Depo Medrol 40 mg (Methyl Prednisolone Acetate) 15:51: 24 [employer] CPT-72329 Abx/Therapy Injection 15:51:24 [employer] CPT-J1100 Decadron 4mg (Dexamethasone) 15:26:33 [employer] CPT-J1030 Depo Medrol 40 mg (Methyl Prednisolone Acetate) 15:26: 33 [employer] CPT-75070 Sono retroperitoneal complete kidneys and bladder 17:15: 30 CDT CPT-20702 Abd compl w upright 16:09:25 CDT CPT-J1100 Decadron 8mg (Dexamethasone) 17:07:57 CDT CPT-52059 Abx/Therapy Injection 17:07:57 CDT CPT-J1100 Decadron 8mg (Dexamethasone) 16:55:24 CDT CPT-64233 Chest 2V Frontal and Lat 16:32:44 CDT
--- OUTSIDE RECORDS SUMMARY | 2016-11-04 22:51 | XMS REPORT | Clinical Summary ---
Author Author Admin, FLOR Organization [employer] Address Unknown Phone Unavailable Allergies, Adverse Reactions, [...] sites Morbid obesity 278.01 Active Juliet Kimbrough LIBRARY SPECIALIST Morbid obesity 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 Active [...] breath Nocturnal hypoxia 799.02 Active Fabiola Johnson LIBRARY SPECIALIST Hypoxemia Neck pain 723.1 Resolved Vishal [...] Vishal Hui MD Physical examination ICD-V70.0 Jim Hiu MD Vaginitis ICD-616.10 Inactive Vishal Hui MD [...] MD Elevated blood glucose ICD-790.29 Inactive Vishal uHi MD Gait unsteady ICD-781.2 Inactive Albert [...] vagina q pm x 7 MICONAZOLE NITRATE 23092923836 Active Pacollina Johnl LIBRARY SPECIALIST Active FLAGYL 500 MG TAB 1 tablet by mouth bid METRONIDAZOLE 55156391259 Active Jillina Frazell LIBRARY SPECIALIST Active TESSALON PERLES 100 MG CAP 1 to 2 tablets by mouth 3 times daily as needed for cough BENZONATATE 70435998860 No Longer Active Tataina Messizell LIBRARY SPECIALIST Active ABILIFY MAINTENA 400 MG IM SUSR 400mg injection every 26 days ARIPIPRAZOLE 70064101585 Active Silvia Casey SURVEYING TECHNICIAN Active IMITREX 50 MG ORAL TABS 0.5 po x 1 PRN Headache. May repeat dose x 1 in 2 hours if needed SUMATRIPTAN SUCCINATE 03875643081 Active Vishal Hui MD Active OXYCODONE HCL ER 10 MG ORAL T12A 1/2 tab by mouth every 4 hours prn OXYCODONE HCL 26048022073 Active Neeraj Collins MD Active METHYLPREDNISOLONE 4 MG ORAL TABS po daily METHYLPREDNISOLONE 85020863228 Active Vishal Hui MD Active LEVOFLOXACIN 500 MG ORAL TABS po daily LEVOFLOXACIN 68543879580 Active Vishal Hui MD Active CHANTIX STARTING MONTH EARNEST 0.5 MG X 11 & 1 MG X 42 TABS take as directed 2015 VARENICLINE TARTRATE 19139450128 Active Ahmet Carbajal MD Active CHANTIX 1 MG TABS 1 twice a day to help quit smoking VARENICLINE TARTRATE 37375402030 Active Ahmet Carbajal MD Active HYDROCODONE-ACETAMINOPHEN 5-325 MG TABS 1 to 2 four times a day as needed for pain use until can be seen by specialist HYDROCODONE- ACETAMINOPHEN 50169475117 No Longer Active Vishal Hui MD Active PROAIR HFA 108 (90 BASE) MCG/ACT AERS 2 puffs four times a day as needed 2015 ALBUTEROL SULFATE 63764367831 No Longer Active Vishal Hui MD Active PREDNISONE 20 MG TABS 2 daily for 5 days then 1 daily for 5 days PREDNISONE 61355735806 No Longer Active Vishal Hui MD Active ZITHROMAX Z-EARNEST 250 MG TABS 2 today and then 1 daily for 4 days AZITHROMYCIN 28750806117 No Longer Active Vishal Hui MD Active DICLOFENAC SODIUM 50 MG TBEC 1 tablet by mouth four times daily PRN Pain 2015 DICLOFENAC SODIUM 47916773042 Active Vishal Hui MD Active DICLOFENAC POTASSIUM TABS Take 1 tablet twice a day (pt. is not sure of the dose.) DICLOFENAC POTASSIUM TABS 79878363345 No Longer Active Vishal Hui MD Active VERAPAMIL HCL ER 120 MG ORAL CR-TABS Take 1 tablet by mouth twice a day. VERAPAMIL HCL 78421127378 Active Vishal Hui MD Active FLAGYL 500 MG TAB 1 tablet by mouth bid METRONIDAZOLE 48610230070 No Longer Active Vishal Hui MD Active FLUTICASONE PROPIONATE 50 MCG/ACT SUSP 2 sprays each nostril daily before bed. FLUTICASONE PROPIONATE 56078152247 Active Fabiola Johnson APRN Active ADZENYS XR-ODT 6.3 MG ORAL TBED 1 tab po daily for ADHD AMPHETAMINE 69405009122 Active Fabiola Johnson APRN Active BENADRYL 25 MG CAP 4 po at bedtime for insomnia DIPHENHYDRAMINE HCL 18081387072 Active Fabiola Johnson APRN Active KLONOPIN 1 MG ORAL TABS 1 tab po TID CLONAZEPAM 45985632901 Active Fabiola Johnson APRN Active VALIUM 5 MG TAB Take 1-2 tablets daily DIAZEPAM 59630554030 No Longer Active Fabiola Johnson APRN Active METOPROLOL TARTRATE 25 MG ORAL TABS 1/2 tablet twice daily for heart rate and blood pressure METOPROLOL TARTRATE 87665053525 No Longer Active Fabiola Johnson APRN Active MIRALAX ORAL POWD 17GMS DAILY IN WATER POLYETHYLENE GLYCOL 3350 71912251436 Active Vishal Hui MD Active VIIBRYD 10 MG ORAL TABS Take 1 tablet once a day VILAZODONE HCL 17941968606 Active Ahmet Carbajal MD Active MIRALAX PACK 1 po qd PRN Constipation POLYETHYLENE GLYCOL 3350 53656390208 No Longer Active Ahmet Carbajal MD Active MINIPRESS 2 MG CAPS 4 cap po at night PRAZOSIN HCL 61831840562 No Longer Active Ahmet Carbajal MD Active PIROXICAM 20 MG CAPS 1 cap po qd PRN Pain PIROXICAM 22640109450 No Longer Active Ahmet Carbajal MD Active TRAMADOL HCL 50 MG TABS 1-2 po TID PRN Pain TRAMADOL HCL 82681989126 No Longer Active Ahmet Carbajal MD Active METOPROLOL TARTRATE 50 MG TAB 1 po bid METOPROLOL TARTRATE 13919400403 No Longer Active Ahmet Carbajal MD Active ABILIFY 15 MG ORAL TABS 1 tab daily ARIPIPRAZOLE 47346894358 No Longer Active Ahmet Carbajal MD Active PROZAC 20 MG ORAL CAPS 1 tab daily FLUOXETINE HCL 04555228273 No Longer Active Ahmet Carbajal MD Active AMBIEN 5 MG ORAL TABS 1 tab at bedtime ZOLPIDEM TARTRATE 24475144730 No Longer Active Ahmet Carbajal MD Active PREDNISONE 20 MG TAB 2 tabs daily for 4 days, 1 tab daily for 4 days, 1/2 tab daily for 4 days PREDNISONE 29152195018 No Longer Active Ahmet Carbajal MD Active KEFLEX 500 MG CAP 1 po TID x 10 days CEPHALEXIN 90288255876 No Longer Active Vishal Hui MD Active TOPAMAX 50 MG ORAL TABS 1 tab twice daily TOPIRAMATE 63620938830 Active Vishal Hui MD Active SAPHRIS 5 MG SUBL 1 po bid ASENAPINE MALEATE 82666382638 No Longer Active Luigi Martínez LIBRARY SPECIALIST Active LATUDA 80 MG TABS Take one by mouth daily LURASIDONE HCL 95222455829 No Longer Active Jillina Johnl LIBRARY SPECIALIST Active AMLODIPINE BESYLATE 5 MG TABS 1 tablet by mouth daily AMLODIPINE BESYLATE 74804816481 No Longer Active Luigi Martínez LIBRARY SPECIALIST Active AMITRIPTYLINE HCL 100 MG TAB one at hs AMITRIPTYLINE HCL 37202693482 No Longer Active Vishal Hui MD Active TRAZODONE HCL 100 MG TAB take 1 at bedtime TRAZODONE HCL 29120857112 No Longer Active Vishal Hui MD Active VYVANSE 40 MG CAPS 1 daily, LISDEXAMFETAMINE DIMESYLATE 55230473938 No Longer Active Vishal Hui MD Active IBUPROFEN 600 MG TAB 1 po TID PRN IBUPROFEN 39029456425 No Longer Active Vishal Hui MD Active PROZAC 20 MG CAP Take one by mouth daily FLUOXETINE HCL 67168837569 No Longer Active Vishal Hui MD Active ZOFRAN 4 MG TABS 1 po q6hr PRN Nausea ONDANSETRON HCL Active Vishal Hui MD Active BACTRIM DS 800-160 MG TABS 1 pill by mouth twice daily SULFAMETHOXAZOLE-TRIMETHOPRIM 05725344156 No Longer Active Sahara Rodriguez MD PhD Active DIFLUCAN 150 MG TAB 1 tablet by mouth daily FLUCONAZOLE 00604399748 No Longer Active Vishal Hui MD Active TIZANIDINE HCL 4 MG TABS 1 po q6hr PRN Muscle Spasm/Back Pain TIZANIDINE HCL 34948789558 Active Vishal Hui MD Active CLINDAMYCIN HCL 150 MG CAPS 1 four times a day CLINDAMYCIN HCL 18620511375 No Longer Active Neeraj Collins MD Active KEFLEX 500 MG ORAL CAPS 1 cap QID by mouth CEPHALEXIN 67748117194 No Longer Active Neeraj Collins MD Active DIFLUCAN 150 MG TABS 1 pill every other day x 2 doses FLUCONAZOLE 97971266113 No Longer Active Sahara Rodriguez MD PhD Active MELATONIN 3 MG CAPS 2 po q hs MELATONIN 65859151516 No Longer Active Sahara Rodriguez MD PhD Active MULTIVITAMINS CAPS Take one by mouth daily MULTIPLE VITAMIN 32590473632 No Longer Active Sahara Rodriguez MD PhD Active BACTRIM DS 800-160 MG TAB 1 tab by mouth twice daily TRIMETHOPRIM-SULFAMETHOXAZOLE 39924834013 No Longer Active Sahara Rodriguez MD PhD Active [facility] PROBIOTIC ORAL CHEW 2 daily po PROBIOTIC PRODUCT 37899406056 No Longer Active Sahara Rodriguez MD PhD Active BACTRIM DS 800-160 MG TABS 1 po BID x 7 days SULFAMETHOXAZOLE-TRIMETHOPRIM 64656192355 No Longer Active Vishal Hui MD Active CHANTIX STARTING MONTH EARNEST 0.5 MG X 11 & 1 MG X 42 TABS 0.5mg daily for 3 days , then 0.5mg BID for 4 days, then 1mg BID VARENICLINE TARTRATE 72829164331 No Longer Active TAMARA Gray Active VERAPAMIL HCL CR 120 MG TAB CR 1 po bid VERAPAMIL HCL 78341959497 No Longer Active Vishal Hui MD Active METOPROLOL SUCCINATE 50 MG TB24 1 tablet by mouth daily METOPROLOL SUCCINATE 76864179408 No Longer Active Vishal Hui MD Active SAPHRIS 10 MG SUBL 1 tab po bid ASENAPINE MALEATE 88678598966 No Longer Active Vishal Hui MD Active LISINOPRIL 20 MG TABS 1 tab po qd LISINOPRIL 62140207917 No Longer Active Vishal Hui MD Active LATUDA 20 MG TABS Take one by mouth daily LURASIDONE HCL 31143792737 No Longer Active Vishal Hui MD Active TRAZODONE HCL 50 MG TABS 1/2 tab po qd prn for anxiety TRAZODONE HCL 87659228207 No Longer Active Vishal Hui MD Active OMEPRAZOLE 20 MG TBEC 1 po q a.m. 30min prior to first food intake OMEPRAZOLE 21410712664 Active Vishal Hui MD Active RANITIDINE HCL 150 MG CAPS 1 twice a day RANITIDINE HCL 14558767003 Active Jillina Messidwightl LIBRARY SPECIALIST Active LINZESS 290 MCG CAPS Take one by mouth daily LINACLOTIDE 04307699068 No Longer Active Vishal Hui MD Active SAPHRIS 5 MG SUBL 1 tab po qd ASENAPINE MALEATE 04478688329 No Longer Active Vishal Hui MD Active ZALEPLON 10 MG CAPS 1 cap po every other night ZALEPLON 77027376748 No Longer Active Vishal Hui MD Active LYRICA 50 MG CAPS 1 tab po TID PREGABALIN 12300607570 No Longer Active Vishal Hui MD Active LORATADINE 10 MG TABS 1 tab po qd LORATADINE 89776577946 No Longer Active Vishal Hui MD Active VERAPAMIL HCL ER 180 MG CR-TABS 1 tab po bid VERAPAMIL HCL 48460822020 No Longer Active Vishal Hui MD Active MIRALAX POWD 1 capfull once daily POLYETHYLENE GLYCOL 3350 30388780482 No Longer Active Vishal Hui MD Active PREDNISONE 20 MG TABS 1 tab po qd PREDNISONE 87958194441 No Longer Active Renzo Thornton DO Active LEVOFLOXACIN 500 MG TABS 1 tab po qd LEVOFLOXACIN 92542870482 No Longer Active Renzo Thornton DO Active BUSPIRONE HCL 15 MG TABS 1 tab po TID BUSPIRONE HCL 99901422827 No Longer Active Renzo Thornton DO Active BENZTROPINE MESYLATE 1 MG TABS 1 tab po qd BENZTROPINE MESYLATE 55409932570 No Longer Active Renzo Thornton DO Active ATENOLOL 25 MG TABS 1 tab po qd ATENOLOL 40426796094 No Longer Active Renzo Thornton DO Active ESCITALOPRAM OXALATE 20 MG TABS 1 tab po qd ESCITALOPRAM OXALATE 42130714009 No Longer Active Renzo Thornton DO Active ADVAIR DISKUS 250-50 MCG/DOSE AEPB 1 puff BID FLUTICASONE-SALMETEROL 55545786112 No Longer Active Renzo Thornton DO Active PREDNISONE 20 MG TAB 2 tabs daily for 3 days, 1 tab daily for 3 days, 1/2 tab daily for 2 days PREDNISONE 57013909940 No Longer Active Vishal Hui MD Active CEFDINIR 300 MG CAPS by mouth twice a day CEFDINIR 82438351201 No Longer Active Vishal Hui MD Active LANSOPRAZOLE 30 MG CPDR 1 cap po qd LANSOPRAZOLE 20880995821 No Longer Active Vishal Hui MD Active BACLOFEN 20 MG TABS 1 tab po tid BACLOFEN 13837690495 No Longer Active Vishal Hui MD Active ADVAIR DISKUS 250-50 MCG/DOSE AEPB 1 puff BID ADVAIR DISKUS 250-50 MCG/DOSE AEPB FLUTICASONE-SALMETEROL Inactive ESCITALOPRAM OXALATE 20 MG TABS 1 tab po qd ESCITALOPRAM OXALATE 20 MG TABS 052110 ESCITALOPRAM OXALATE Inactive ATENOLOL 25 MG TABS 1 tab po qd ATENOLOL 25 MG TABS 387695 ATENOLOL Inactive BENZTROPINE MESYLATE 1 MG TABS 1 tab po qd BENZTROPINE MESYLATE 1 MG TABS 830104 BENZTROPINE MESYLATE Inactive BUSPIRONE HCL 15 MG TABS 1 tab po TID BUSPIRONE HCL 15 MG TABS 314471 BUSPIRONE HCL Inactive LEVOFLOXACIN 500 MG TABS 1 tab po qd LEVOFLOXACIN 500 MG TABS 796549 LEVOFLOXACIN Inactive PREDNISONE 20 MG TABS 1 tab po qd PREDNISONE 20 MG TABS 784200 PREDNISONE Inactive MIRALAX POWD 1 capfull once daily MIRALAX POWD 971948 POLYETHYLENE GLYCOL 3350 Inactive VERAPAMIL HCL ER 180 MG CR-TABS 1 tab po bid VERAPAMIL HCL ER 180 MG CR-TABS VERAPAMIL HCL Inactive LORATADINE 10 MG TABS 1 tab po qd LORATADINE 10 MG TABS 215187 LORATADINE Inactive LYRICA 50 MG CAPS 1 tab po TID LYRICA 50 MG CAPS PREGABALIN Inactive ZALEPLON 10 MG CAPS 1 cap po every other night ZALEPLON 10 MG CAPS 122946 ZALEPLON Inactive SAPHRIS 5 MG SUBL 1 tab po qd SAPHRIS 5 MG SUBL ASENAPINE MALEATE Inactive TRAZODONE HCL 50 MG TABS 1/2 tab po qd prn for anxiety TRAZODONE HCL 50 MG TABS 983774 TRAZODONE HCL Inactive LATUDA 20 MG TABS Take one by mouth daily LATUDA 20 MG TABS LURASIDONE HCL Inactive LISINOPRIL 20 MG TABS 1 tab po qd LISINOPRIL 20 MG TABS 522604 LISINOPRIL Inactive SAPHRIS 10 MG SUBL 1 [...] twice daily BACTRIM DS 800-160 MG TAB 272895 TRIMETHOPRIM-SULFAMETHOXAZOLE Inactive MULTIVITAMINS CAPS Take one by mouth daily MULTIVITAMINS CAPS MULTIPLE VITAMIN Inactive MELATONIN 3 MG CAPS 2 po q hs MELATONIN 3 MG CAPS 083785 MELATONIN Inactive KEFLEX 500 MG ORAL CAPS 1 cap QID by mouth KEFLEX 500 MG ORAL CAPS 834245 CEPHALEXIN Inactive CLINDAMYCIN HCL 150 MG CAPS 1 four times a day CLINDAMYCIN HCL 150 MG CAPS 886839 CLINDAMYCIN HCL Inactive DIFLUCAN 150 MG TAB 1 tablet by mouth daily DIFLUCAN 150 MG TAB 531590 FLUCONAZOLE Inactive PROZAC 20 MG CAP Take one by mouth daily PROZAC 20 MG CAP 747626 FLUOXETINE HCL Inactive IBUPROFEN 600 MG TAB 1 po TID PRN IBUPROFEN 600 MG TAB 450853 IBUPROFEN Inactive VYVANSE 40 MG CAPS 1 daily, VYVANSE 40 MG CAPS LISDEXAMFETAMINE DIMESYLATE Inactive TRAZODONE HCL 100 MG TAB take 1 at bedtime TRAZODONE HCL 100 MG TAB 552526 TRAZODONE HCL Inactive AMITRIPTYLINE HCL 100 MG TAB one at hs AMITRIPTYLINE HCL 100 MG TAB 169292 AMITRIPTYLINE HCL Inactive AMLODIPINE BESYLATE 5 MG TABS 1 tablet by mouth daily AMLODIPINE BESYLATE 5 MG TABS 421055 AMLODIPINE BESYLATE Inactive LATUDA 80 MG TABS Take one by mouth daily LATUDA 80 MG TABS LURASIDONE HCL Inactive SAPHRIS 5 MG SUBL 1 po bid SAPHRIS 5 MG SUBL ASENAPINE MALEATE Inactive PREDNISONE 20 MG TAB 2 tabs daily for 4 days, 1 tab daily for 4 days, 1/2 tab daily for 4 days PREDNISONE 20 MG TAB 739447 PREDNISONE Inactive AMBIEN 5 MG ORAL TABS 1 tab at bedtime AMBIEN 5 MG ORAL TABS 006672 ZOLPIDEM TARTRATE Inactive PROZAC 20 MG ORAL CAPS 1 tab daily PROZAC 20 MG ORAL CAPS 895626 FLUOXETINE HCL Inactive ABILIFY 15 MG ORAL TABS 1 tab daily ABILIFY 15 MG ORAL TABS 455077 ARIPIPRAZOLE Inactive METOPROLOL TARTRATE 50 MG TAB 1 po bid METOPROLOL TARTRATE 50 MG TAB 798777 METOPROLOL TARTRATE Inactive TRAMADOL HCL 50 MG TABS 1-2 po TID PRN Pain TRAMADOL HCL 50 MG TABS 070357 TRAMADOL HCL Inactive PIROXICAM 20 MG CAPS 1 cap po qd PRN Pain PIROXICAM 20 MG CAPS 598117 PIROXICAM Inactive MINIPRESS 2 MG CAPS 4 cap po at night MINIPRESS 2 MG CAPS 203761 PRAZOSIN HCL Inactive MIRALAX PACK 1 po qd PRN Constipation MIRALAX PACK 974186 POLYETHYLENE GLYCOL 3350 Inactive METOPROLOL TARTRATE 25 MG ORAL TABS 1/2 tablet twice daily for heart rate and blood pressure METOPROLOL TARTRATE 25 MG ORAL TABS 080133 METOPROLOL TARTRATE Inactive VALIUM 5 MG TAB Take 1-2 tablets daily VALIUM 5 MG TAB 548687 DIAZEPAM Inactive FLAGYL 500 MG TAB 1 tablet by mouth bid FLAGYL 500 MG TAB 591748 METRONIDAZOLE Inactive DICLOFENAC POTASSIUM TABS Take 1 tablet twice a day (pt. is not sure of the dose.) DICLOFENAC POTASSIUM TABS DICLOFENAC POTASSIUM TABS Inactive ZITHROMAX Z-EARNEST 250 MG TABS 2 today and then 1 daily for 4 days ZITHROMAX Z-EARNEST 250 MG TABS 8277970 AZITHROMYCIN Inactive PREDNISONE 20 MG TABS 2 daily for 5 days then 1 daily for 5 days PREDNISONE 20 MG TABS 087418 PREDNISONE Inactive PROAIR HFA 108 (90 BASE) MCG/ACT AERS 2 puffs four times a day as needed 2015 PROAIR HFA 108 (90 BASE) MCG/ACT AERS ALBUTEROL SULFATE Inactive HYDROCODONE-ACETAMINOPHEN 5-325 MG TABS 1 to 2 four times a day as needed for pain use until can be seen by specialist HYDROCODONE- ACETAMINOPHEN 5-325 MG TABS 190718 HYDROCODONE-ACETAMINOPHEN Inactive TESSALON PERLES 100 MG CAP 1 to 2 tablets by mouth 3 times daily as needed for cough TESSALON PERLES 100 MG CAP 152878 BENZONATATE Inactive CEFDINIR 300 MG CAPS by mouth twice a day CEFDINIR 300 MG CAPS 575295 CEFDINIR Inactive PREDNISONE 20 MG TAB 2 tabs daily for 3 days, 1 tab daily for 3 days, 1/2 tab daily for 2 days PREDNISONE 20 MG TAB 540525 PREDNISONE Inactive BACTRIM DS 800-160 MG TABS 1 po BID x 7 days BACTRIM DS 800-160 MG TABS 19820521 SULFAMETHOXAZOLE-TRIMETHOPRIM Inactive DIFLUCAN 150 MG TABS 1 pill every other day x 2 doses DIFLUCAN 150 MG TABS 818999 FLUCONAZOLE Inactive BACTRIM DS 800-160 MG TABS 1 pill by mouth twice daily BACTRIM DS 800-160 MG TABS 19820521 SULFAMETHOXAZOLE-TRIMETHOPRIM Inactive KEFLEX 500 MG CAP 1 po TID x 10 days KEFLEX 500 MG CAP 465515 CEPHALEXIN Inactive Advance Directives Directive Description Start [...] % 11.6-14.8 platelet count 394 10^3/MM^3 10*3/mm3 587-153 3734/01/11 leukocyte count, blood 13.8 10^3/MM^3 10*3/mm3 4.6-10.2 [...] Panel - Chemistry sodium, serum 139 mmol/L 305-963 1867/12/03 carbon dioxide, venous blood 28.5 mmol/L 21.0-32.0 [...] 5.5 % 4.3-6.0 cholesterol, serum 159 mg/dL 200-555 4092/12/03 triglyceride, serum, fasting 118 mg/dL 30-200 HDL [...] Panel - Chemistry sodium, serum 139 mmol/L 740-407 6869/12/22 carbon dioxide, venous blood 26.8 mmol/L 21.0-32.0 potassium, serum 4.2 mmol/L 3.5-5.2 chloride, serum 103 mmol/L 98-107 blood glucose 115 mg/dL 65-110 urea nitrogen, blood 20 mg/dL 7-18 creatinine, serum 0.90 mg/dL 0.55-1.30 alanine aminotransferase (SGPT), serum 38 U/L 12-78 aspartate aminotransferase (SGOT), serum 19 U/L 15-37 calcium, serum 8.6 mg/dL 8.5-10.1 bilirubin, serum, total 0.30 mg/dL 0.00-1.00 sodium, serum 139 mmol/L 727-817 8499/01/11 carbon dioxide, venous blood 26.6 mmol/L 21.0-32.0 potassium, serum 4.1 mmol/L 3.5-5.2 chloride, serum 100 mmol/L 98-107 blood glucose 86 mg/dL 65-110 urea nitrogen, blood 16 mg/dL 7-18 creatinine, serum 1.00 mg/dL 0.55-1.30 alanine aminotransferase (SGPT), serum 48 U/L aspartate aminotransferase (SGOT), serum 17 U/L -37 calcium, serum 9.1 mg/dL 8.5-10.1 bilirubin, serum, total 0.40 mg/dL 0.00-1.00 sodium, serum 142 mmol/L 278-153 0970/06/08 carbon dioxide, venous blood 27.6 mmol/L 21.0-32.0 potassium, serum 4.0 mmol/L 3.5-5.2 chloride, serum 105 mmol/L 98-107 blood glucose 95 mg/dL 65-110 urea nitrogen, blood 8 mg/dL 7-18 creatinine, serum 0.75 mg/dL 0.55-1.30 alanine aminotransferase (SGPT), serum 49 U/L aspartate aminotransferase (SGOT), serum 28 U/L 15-37 calcium, serum 9.4 mg/dL 8.5-10.1 bilirubin, serum, total 0.30 mg/dL 0.00-1.00 sodium, serum 140 mmol/L 441-651 9561/08/08 carbon dioxide, venous blood 33.7 mmol/L 21.0-32.0 [...] Rate - Chemistry sodium, serum 139 mmol/L 723-263 4726/12/11 carbon dioxide, venous blood 25.4 mmol/L 21.0-32.0 [...] mg/dL Encounters Code Encounter Date Provider Facility CPT-23274 Level 3 Est. Patient 13:59:59 CDT [facility] CPT-22442 Level 3 Est. Patient 18:18:53 CDT Neeraj Collins MD [facility] CPT-28574 Level 3 Est. Patient 15:50:44 CDT Vishal Hui MD [facility] CPT-37227 Level 3 Est. Patient 11:36:17 CDT Ahmet Carbajal MD [facility] CPT-00954 Level 3 Est. Patient 13:29:16 CDT Vishal Hui MD [facility] CPT-38434 Level 3 Est. Patient 14:27:52 CDT Neeraj Collins MD [facility] CPT-73647 Level 3 Est. Patient 08:56:03 CDT [facility] CPT-89151 Level 4 Est. Patient 12:11:48 CDT [facility] CPT-83744 Level 3 New Patient 16:53:37 CDT Albert Caldera MD [facility] CPT-42279 Level 3 Est. Patient 11:25:49 CDT Renzo Thornton DO [facility] CPT-52938 Level 3 Est. Patient 15:22:01 CDT Ahmet Carbajal MD [facility] CPT-15266 Level 4 Est. Patient 09:00:51 [employer]END[employer] Vishal Hui MD [facility] CPT-57060 Level 3 Est. Patient 11:37:33 [employer]END[employer] Vishal Hui MD [facility] CPT-57442 Level 3 Est. Patient 08:41:09 [employer]END[employer] Vishal Hui MD [facility] CPT-61285 Level 4 Est. Patient 10:19:35 [employer]END[employer] Vishal Hui MD [facility] CPT-85464 Level 3 Est. Patient 13:35:45 CDT Vishal Hui MD [facility] CPT-03000 Level 4 Est. Patient 10:08:37 CDT Vishal Hui MD [facility] CPT-35550 Level 3 Est. Patient 11:22:10 CDT Vishal Hui MD [facility] CPT-27921 Level 3 Est. Patient 11:03:32 CDT Sahara Rodriguez MD [facility]-03095 Level 3 Est. Patient 09:41:35 CDT Vishal Hui MD [facility] CPT-52325 Level 3 Est. Patient 12:00:41 CDT Neeraj Collins MD [facility] CPT-76623 Level 3 Est. Patient 09:16:24 CDT Vishal Hui MD [facility]-17547 Level 4 Est. Patient 13:59:09 CDT Neeraj Collins MD [facility]-67620 Level 3 Est. Patient 15:19:43 CDT Renzo Thornton DO [facility] CPT-71908 Level 3 Est. Patient 18:10:26 CDT Sahara Rodriguez MD [facility] CPT-49004 Level 3 Est. Patient 14:49:50 CDT Vishal Hui MD [facility]-59575 Level 4 Est. Patient 18:41:46 CDT Neeraj Collins MD [facility] CPT-47466 Level 4 Est. Patient 09:18:38 [employer]END[employer] Vishal Hui MD [facility]-78785 Level 3 Est. Patient 14:43:55 [employer]END[employer] Vishal Hui MD [facility] CPT-29315 Level 3 Est. Patient 15:26:33 [employer]END[employer] Sahara Rodriguez MD [facility]-15672 Level 3 Est. Patient 10:32:14 [employer]END[employer] Vishal Hui MD [facility] CPT-48589 Level 3 Est. Patient 15:12:52 [employer]END[employer] Vishal Hui MD [facility]-12012 Level 4 Est. Patient 09:19:27 CDT Vishal Hui MD [facility] CPT-90785 Level 3 Est. Patient 15:53:00 CDT Renzo Thornton [facility] CPT-04929 Level 3 Est. Patient 15:50:30 CDT Renzo Thornton [facility] CPT-44870 Level 3 Est. Patient 16:55:24 CDT Vishal Hui MD [facility] Procedures Code Procedure Name Date Entry Date Standard Description CPT-72987 UA w micro - LAB USE ONLY 16:21:13 CDT CPT-24428 Wet Mount - LAB USE ONLY 16:21:13 CDT CPT-77451 First Vx - Ix admin for Medicare patients 14:37:47 CDT CPT-39281 Fluzone Preservative Free Intramuscular Suspension 14:37 :47 CDT CPT-37589 Abx/Therapy Injection 13:54:22 CDT CPT-39701 Abx/Therapy Injection 08:47:09 CDT CPT-47830 Abx/Therapy Injection 13:29:56 CDT CPT-64183 Abx/Therapy Injection 08:36:16 CDT CPT-22264 Wet Mount - LAB USE ONLY 17:44:58 CDT CPT-60948 UA w micro - LAB USE ONLY 17:44:58 CDT CPT-25110 CMP - LAB USE ONLY 17:44:58 CDT CPT-51722 Venipuncture Draw Fee 17:44:58 CDT CPT-15322 Cervical Min 4V - XRAY USE ONLY 09:01:40 CDT CPT-74437 Chest 2V Frontal and Lat - XRAY USE ONLY 11:06:31 CDT CPT-77067 EKG Trac and Interp - XRAY USE ONLY 11:31:43 CDT 08/26 CPT-J3420 Vitamin B12 1000mcg (Cyanocobalamin) 08:10:26 [employer]END[employer] 04/12 CPT-41534 Abx/Therapy Injection 08:10:26 [employer] ATTEND[employer] CPT-G0438 Initial Annual Wellness Exam 19:01:01 [employer]END[employer] CPT-J3420 Vitamin B12 1000mcg (Cyanocobalamin) 16:57:46 CDT 08/14 CPT-28453 Recombivax HB Injection Suspension 5 MCG/0.5ML 08:37:50 [employer]END[employer] CPT-67232 Immunization Single Admin 08:37:50 [employer]END[employer] CPT-J3420 Vitamin B12 1000mcg (Cyanocobalamin) 08:32:16 [employer]END[employer] 03/11 CPT-91179 Abx/Therapy Injection 08:32:16 [employer]END[employer] CPT-92380 Chest 2V Frontal and Lat 11:46:38 [employer]END[employer] CPT-77610 Venipuncture Draw Fee 09:12:45 [employer]END[employer] CPT-J3420 Vitamin B12 1000mcg (Cyanocobalamin) 08:50:15 [employer]END[employer] 02/08 CPT-44470 Abx/Therapy Injection 08:50:15 [employer] ATTEND[employer] CPT-Cryo Cryotherapy 10:19:35 [employer] CPT-000 Give Appropriate Flu Vaccine 09:22:16 CDT CPT-J3420 Vitamin B12 1000mcg (Cyanocobalamin) 19:08:57 CDT 01/11 CPT-07485 Abx/Therapy Injection 19:08:57 CDT CPT-J3420 Vitamin B12 1000mcg (Cyanocobalamin) 08:19:08 CDT 12/11 CPT-71412 Abx/Therapy Injection 08:19:08 CDT CPT-J3420 Vitamin B12 1000mcg (Cyanocobalamin) 14:48:00 CDT 11/09 CPT-01924 Abx/Therapy Injection 14:47:59 CDT CPT-J3420 Vitamin B12 1000mcg (Cyanocobalamin) 08:34:04 CDT 10/09 CPT-67282 Abx/Therapy Injection 08:34:04 CDT CPT-J3420 Vitamin B12 1000mcg (Cyanocobalamin) 09:18:52 CDT 09/11 CPT-22457 Abx/Therapy Injection 09:18:52 CDT CPT-J3420 Vitamin B12 1000mcg (Cyanocobalamin) 08:35:44 CDT 09/04 CPT-15234 Abx/Therapy Injection 08:35:44 CDT CPT-31151 Immunization Single Admin 11:07:16 CDT CPT-29691 Hepatitis B adult IM 11:07:16 CDT CPT-J3420 Vitamin B12 1000mcg (Cyanocobalamin) 11:00:49 CDT 08/28 CPT-J1040 Depo Medrol 80 mg (Methyl Prednisolone Acetate) 11:00: 49 CDT CPT-90444 Abx/Therapy Injection 11:00:49 CDT CPT-J1040 Depo Medrol 80 mg (Methyl Prednisolone Acetate) 09:16: 23 CDT CPT-J3420 Vitamin B12 1000mcg (Cyanocobalamin) 08:27:05 CDT 08/20 CPT-47698 Abx/Therapy Injection 08:27:05 CDT CPT-10726 Recombivax HB Injection Suspension 5 MCG/0.5ML 10:00:41 CDT CPT-47331 Administration single or combination vaccine inc oral 10 :00:41 CDT CPT-60208 Sono transvag pelvis non OB uterus ovaries cervix 16:36: 57 CDT CPT-55833 LS spine comp w obliq 09:50:55 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 HOUSE ATTENDANT CPT-33582 Abd compl w upright 09:50:55 BATH HOUSE ATTENDANT CPT-J1100 Decadron 4mg (Dexamethasone) 15:51:24 BATH HOUSE ATTENDANT CPT-J1030 Depo Medrol 40 mg (Methyl Prednisolone Acetate) 15:51: 24 BATH HOUSE ATTENDANT CPT-47153 Abx/Therapy Injection 15:51:24 BATH HOUSE ATTENDANT CPT-J1100 Decadron 4mg (Dexamethasone) 15:26:33 BATH HOUSE ATTENDANT CPT-J1030 Depo Medrol 40 mg (Methyl Prednisolone Acetate) 15:26: 33 BATH HOUSE ATTENDANT CPT-11794 Sono retroperitoneal complete kidneys and bladder 17:15: 30 CDT CPT-16632 Abd compl w upright 16:09:25 CDT CPT-J1100 Decadron 8mg (Dexamethasone) 17:07:57 CDT CPT-25233 Abx/Therapy Injection 17:07:57 CDT CPT-J1100 Decadron 8mg (Dexamethasone) 16:55:24 CDT CPT-45132 Chest 2V Frontal and Lat 16:32:44 CDT
--- OUTSIDE RECORDS SUMMARY | 2016-11-04 22:53 | XMS REPORT | Clinical Summary ---
Author Author Admin, QIE Organization [facility] Address Unknown Phone Unavailable Allergies, Adverse Reactions, [...] health care facility Sinus tachycardia 427.89 Active iVshal Hui MD Other specified cardiac dysrhythmias Schizoaffective [...] 1 pill by mouth twice daily SULFAMETHOXAZOLE-TRIMETHOPRIM 73959895191 Active Sahara Rodriguez MD PhD Active DIFLUCAN 150 MG TAB 1 tablet by mouth daily FLUCONAZOLE 37008125225 No Longer Active Vishal Hui MD Active TIZANIDINE HCL 4 MG TABS 1 po q6hr PRN Muscle Spasm/Back Pain TIZANIDINE HCL 98444271947 Active Vishal Hui MD Active CLINDAMYCIN HCL 150 MG CAPS 1 four times a day CLINDAMYCIN HCL 27401123548 No Longer Active Neeraj Collins MD Active KEFLEX 500 MG ORAL CAPS 1 cap QID by mouth CEPHALEXIN 70969593605 No Longer Active Neeraj Collins MD Active DIFLUCAN 150 MG TABS 1 pill every other day x 2 doses FLUCONAZOLE 55440223459 No Longer Active Sahara Rodriguez MD PhD Active MELATONIN 3 MG CAPS 2 po q hs MELATONIN 35035015799 No Longer Active Sahara Rodriguez MD PhD Active MULTIVITAMINS CAPS Take one by mouth daily MULTIPLE VITAMIN 53863319480 No Longer Active Sahara Rodriguez MD PhD Active BACTRIM DS 800-160 MG TAB 1 tab by mouth twice daily TRIMETHOPRIM-SULFAMETHOXAZOLE 72802249248 No Longer Active Sahara Rodriguez MD PhD Active [facility] PROBIOTIC ORAL CHEW 2 daily po PROBIOTIC PRODUCT 46519340981 No Longer Active Sahara Rodriguez MD PhD Active IBUPROFEN 600 MG TAB 1 po TID PRN IBUPROFEN 46469321618 Active Luigi Martínez DIRECTOR OF [employer]ENT [employer] SERVICES Active BACTRIM DS 800-160 MG TABS 1 po BID x 7 days SULFAMETHOXAZOLE-TRIMETHOPRIM 35519343921 No Longer Active Vishal Hui MD Active CHANTIX STARTING MONTH EARNEST 0.5 MG X 11 & 1 MG X 42 TABS 0.5mg daily for 3 days , then 0.5mg BID for 4 days, then 1mg BID VARENICLINE TARTRATE 89520843493 No Longer Active TAMARA Gray Active METOPROLOL TARTRATE 50 MG TAB 1 po bid METOPROLOL TARTRATE 80647872141 Active Vishal Hui MD Active TRAZODONE HCL 100 MG TAB take 1 at bedtime TRAZODONE HCL 15388273976 Active Vishal Hui MD Active AMLODIPINE BESYLATE 5 MG TABS 1 tablet by mouth daily AMLODIPINE BESYLATE 23119493815 Active Vishal Hui MD Active VERAPAMIL HCL CR 120 MG TAB CR 1 po bid VERAPAMIL HCL 14549735220 No Longer Active Vishal Hui MD Active METOPROLOL SUCCINATE 50 MG TB24 1 tablet by mouth daily METOPROLOL SUCCINATE 32077089048 No Longer Active Vishal Hui MD Active TRAMADOL HCL 50 MG TABS 1-2 po TID PRN Pain TRAMADOL HCL 86546505195 Active Vishal Hui MD Active SAPHRIS 5 MG SUBL 1 po bid ASENAPINE MALEATE 15853941185 Active Vishal Hui MD Active SAPHRIS 10 MG SUBL 1 tab po bid ASENAPINE MALEATE 42443703142 No Longer Active Vishal Hui MD Active LISINOPRIL 20 MG TABS 1 tab po qd LISINOPRIL 94444436251 No Longer Active Vishal Hui MD Active BENADRYL 25 MG CAP 2 po tid prn anxiety DIPHENHYDRAMINE HCL 63171291735 Active Vishal Hui MD Active LATUDA 80 MG TABS Take one by mouth daily LURASIDONE HCL 93542591510 Active Vishal Hui MD Active LATUDA 20 MG TABS Take one by mouth daily LURASIDONE HCL 39565129428 No Longer Active Vishal Hui MD Active TRAZODONE HCL 50 MG TABS 1/2 tab po qd prn for anxiety TRAZODONE HCL 44904170704 No Longer Active Vishal Hui MD Active PIROXICAM 20 MG CAPS 1 cap po qd PRN Pain PIROXICAM 94872440189 Active Vishal Hui MD Active OMEPRAZOLE 20 MG TBEC 1 po q a.m. 30min prior to first food intake OMEPRAZOLE 10928558401 Active Vishal Hui MD Active RANITIDINE HCL 150 MG CAPS 1 twice a day RANITIDINE HCL 43881795647 Active Vishal Hui MD Active PROZAC 20 MG CAP Take one by mouth daily FLUOXETINE HCL 97855622944 Active Vishal Hui MD Active LINZESS 290 MCG CAPS Take one by mouth daily LINACLOTIDE 52333754758 Active Vishal Hui MD Active SAPHRIS 5 MG SUBL 1 tab po qd ASENAPINE MALEATE 43544236592 No Longer Active Vishal Hui MD Active ZALEPLON 10 MG CAPS 1 cap po every other night ZALEPLON 21720574657 No Longer Active Vishal Hui MD Active LYRICA 50 MG CAPS 1 tab po TID PREGABALIN 20443373771 No Longer Active Vishal Hui MD Active LORATADINE 10 MG TABS 1 tab po qd LORATADINE 03032697916 No Longer Active Vishal Hui MD Active VERAPAMIL HCL ER 180 MG CR-TABS 1 tab po bid VERAPAMIL HCL 88486927590 No Longer Active Vishal Hui MD Active MIRALAX POWD 1 capfull once daily POLYETHYLENE GLYCOL 3350 32266232396 No Longer Active Vishal Hui MD Active PREDNISONE 20 MG TABS 1 tab po qd PREDNISONE 82423602459 No Longer Active Renzo Thornton DO Active LEVOFLOXACIN 500 MG TABS 1 tab po qd LEVOFLOXACIN 03413160149 No Longer Active Renzo Thornton DO Active BUSPIRONE HCL 15 MG TABS 1 tab po TID BUSPIRONE HCL 97897600819 No Longer Active Renzo Thornton DO Active BENZTROPINE MESYLATE 1 MG TABS 1 tab po qd BENZTROPINE MESYLATE 21211084595 No Longer Active Renzo Thornton DO Active ATENOLOL 25 MG TABS 1 tab po qd ATENOLOL 87825616409 No Longer Active Renzo Thornton DO Active ESCITALOPRAM OXALATE 20 MG TABS 1 tab po qd ESCITALOPRAM OXALATE 62607443371 No Longer Active Renzo Thornton DO Active ADVAIR DISKUS 250-50 MCG/DOSE AEPB 1 puff BID FLUTICASONE-SALMETEROL 76790504622 No Longer Active Renzo Thornton DO Active PREDNISONE 20 MG TAB 2 tabs daily for 3 days, 1 tab daily for 3 days, 1/2 tab daily for 2 days PREDNISONE 03082534041 No Longer Active Vishal Hui MD Active CEFDINIR 300 MG CAPS by mouth twice a day CEFDINIR 42226644078 No Longer Active Vishal Hui MD Active LANSOPRAZOLE 30 MG CPDR 1 cap po qd LANSOPRAZOLE 07114131610 No Longer Active Vishal Hui MD Active TOPAMAX 25 MG TABS 1 tab po bid TOPIRAMATE 56807243263 Active Vishal Hui MD Active MINIPRESS 2 MG CAPS 1 cap po at night PRAZOSIN HCL 85803024999 Active Vishal Hui MD Active BACLOFEN 20 MG TABS 1 tab po tid BACLOFEN 21128886252 No Longer Active Vishal Hui MD Active ADVAIR DISKUS 250-50 MCG/DOSE AEPB 1 puff BID ADVAIR DISKUS 250-50 MCG/DOSE AEPB FLUTICASONE-SALMETEROL Inactive ESCITALOPRAM OXALATE 20 MG TABS 1 tab po qd ESCITALOPRAM OXALATE 20 MG TABS 580739 ESCITALOPRAM OXALATE Inactive ATENOLOL 25 MG TABS 1 tab po qd ATENOLOL 25 MG TABS 548553 ATENOLOL Inactive BENZTROPINE MESYLATE 1 MG TABS 1 tab po qd BENZTROPINE MESYLATE 1 MG TABS 136309 BENZTROPINE MESYLATE Inactive BUSPIRONE HCL 15 MG TABS 1 tab po TID BUSPIRONE HCL 15 MG TABS 002849 BUSPIRONE HCL Inactive LEVOFLOXACIN 500 MG TABS 1 tab po qd LEVOFLOXACIN 500 MG TABS 005415 LEVOFLOXACIN Inactive PREDNISONE 20 MG TABS 1 tab po qd PREDNISONE 20 MG TABS 073838 PREDNISONE Inactive MIRALAX POWD 1 capfull once daily MIRALAX POWD 877932 POLYETHYLENE GLYCOL 3350 Inactive VERAPAMIL HCL ER 180 MG CR-TABS 1 tab po bid VERAPAMIL HCL ER 180 MG CR-TABS VERAPAMIL HCL Inactive LORATADINE 10 MG TABS 1 tab po qd LORATADINE 10 MG TABS 751959 LORATADINE Inactive LYRICA 50 MG CAPS 1 tab po TID LYRICA 50 MG CAPS PREGABALIN Inactive ZALEPLON 10 MG CAPS 1 cap po every other night ZALEPLON 10 MG CAPS 007467 ZALEPLON Inactive SAPHRIS 5 MG SUBL 1 tab po qd SAPHRIS 5 MG SUBL ASENAPINE MALEATE Inactive TRAZODONE HCL 50 MG TABS 1/2 tab po qd prn for anxiety TRAZODONE HCL 50 MG TABS 194804 TRAZODONE HCL Inactive LATUDA 20 MG TABS Take one by mouth daily LATUDA 20 MG TABS LURASIDONE HCL Inactive LISINOPRIL 20 MG TABS 1 tab po qd LISINOPRIL 20 MG TABS 694489 LISINOPRIL Inactive SAPHRIS 10 MG SUBL 1 [...] po q hs MELATONIN 3 MG CAPS 505410 MELATONIN Inactive KEFLEX 500 MG ORAL CAPS 1 cap QID by mouth KEFLEX 500 MG ORAL CAPS 614351 CEPHALEXIN Inactive CLINDAMYCIN HCL 150 MG CAPS 1 four times a day CLINDAMYCIN HCL 150 MG CAPS 163857 CLINDAMYCIN HCL Inactive DIFLUCAN 150 MG TAB 1 tablet by mouth daily DIFLUCAN 150 MG TAB 843761 FLUCONAZOLE Inactive CEFDINIR 300 MG CAPS by mouth twice a day CEFDINIR 300 MG CAPS 551717 CEFDINIR Inactive PREDNISONE 20 MG TAB 2 tabs daily for 3 days, 1 tab daily for 3 days, 1/2 tab daily for 2 days PREDNISONE 20 MG TAB 961428 PREDNISONE Inactive BACTRIM DS 800-160 MG TABS 1 po BID x 7 days BACTRIM DS 800-160 MG TABS SULFAMETHOXAZOLE-TRIMETHOPRIM Inactive DIFLUCAN 150 MG TABS 1 pill every other day x 2 doses DIFLUCAN 150 MG TABS 821454 FLUCONAZOLE Inactive Vital Signs Date Name Value [...] pressure, diastolic - 8462-4 72 mm[Hg] BP mncally blood pressure, systolic - 8480-6 115 mm[Hg] [...] U/L Chart Maintenance: outside labs entered on [facility] - Hematology leukocyte count, blood 8.9 10*3/mm3 hemoglobin, blood 13.2 g/dL platelet count 364 10*3/mm3 Lab Report: CBC, Comp. Metabolic Panel, Free Thyroxine (L), Thyroid Stim ... - Chemistry sodium, serum 140 mmol/L 546-001 7375/05/28 potassium, serum 4.2 mmol/L 3.5-5.2 chloride, serum [...] Panel - Chemistry sodium, serum 141 mmol/L [phone] potassium, serum 4.3 mmol/L 3.5-5.2 chloride, serum [...] Panel - Chemistry sodium, serum 139 mmol/L 275-030 9190/12/31 potassium, serum 4.8 mmol/L 3.5-5.2 chloride, serum 106 mmol/L 98-107 carbon dioxide, venous blood 24.3 mmol/L 21.0-32.0 blood glucose 90 mg/dL 65-110 urea nitrogen, blood 16 mg/dL 7-18 creatinine, serum 1.00 mg/dL 0.60-1.30 alanine aminotransferase (SGPT), serum 41 U/L -78 aspartate aminotransferase (SGOT), serum 17 U/L 15-37 calcium, serum 8.6 mg/dL 8.5-10.1 bilirubin, serum, total 0.30 mg/dL 0.00-1.00 cholesterol, serum 108 mg/dL 706-665 6233/12/31 triglyceride, serum, fasting 120 mg/dL 30-200 HDL [...] semiquantitative 7.0 5.0-8.5 Lab Report: Varicella-Zoater Inga IgG,IgM/51189, HEP Be Antibody/556, RUB ... - Serology rubella antibody, serum, IgG 2.88 Encounters Code Encounter Date Provider Facility CPT-41928 Level 3 Est. Patient 11:03:32 CDT Sahara Rodriguez MD PhD [facility] CPT-15592 Level 3 Est. Patient 09:41:35 CDT Vishal Hui MD [facility]-36741 Level 3 Est. Patient 12:00:41 CDT Neeraj Collins MD [facility] CPT-76616 Level 3 Est. Patient 09:16:24 CDT Vishal Hui MD [facility] CPT-65787 Level 4 Est. Patient 13:59:09 CDT Neeraj Collins MD [facility] CPT-45534 Level 3 Est. Patient 15:19:43 CDT Renzo Thornton DO [facility] CPT-28288 Level 3 Est. Patient 18:10:26 CDT Sahara Rodriguez MD PhD [facility] CPT-03917 Level 3 Est. Patient 14:49:50 CDT Vishal Hui MD [facility] CPT-04974 Level 4 Est. Patient 18:41:46 CDT Neeraj Collins MD [facility] CPT-49329 Level 4 Est. Patient 09:18:38 SENIOR PAYROLL ADMINISTRATOR Vishal Hui MD [facility] CPT-25533 Level 3 Est. Patient 14:43:55 SENIOR PAYROLL ADMINISTRATOR Vishal Hui MD [facility] CPT-24258 Level 3 Est. Patient 15:26:33 SENIOR PAYROLL ADMINISTRATOR Sahara Rodriguez MD, PhD [facility] CPT-23624 Level 3 Est. Patient 10:32:14 SENIOR PAYROLL ADMINISTRATOR Vishal Hui MD [facility] CPT-66624 Level 3 Est. Patient 15:12:52 SENIOR PAYROLL ADMINISTRATOR Vishal Hui MD [facility] CPT-32097 Level 4 Est. Patient 09:19:27 CDT Vishal Hui MD [facility] CPT-25086 Level 3 Est. Patient 15:53:00 CDT Renzo Thornton [facility] CPT-99032 Level 3 Est. Patient 15:50:30 CDT Renzo Thornton [facility] CPT-97680 Level 3 Est. Patient 16:55:24 CDT Vishal Hui MD [facility] Procedures Code Procedure Name Date Entry Date Standard Description CPT-J3420 Vitamin B12 1000mcg (Cyanocobalamin) 08:34:04 CDT 10/09 CPT-74857 Abx/Therapy Injection 08:34:04 CDT CPT-J3420 Vitamin B12 1000mcg (Cyanocobalamin) 09:18:52 CDT 09/11 CPT-84241 Abx/Therapy Injection 09:18:52 CDT CPT-J3420 Vitamin B12 1000mcg (Cyanocobalamin) 08:35:44 CDT 09/04 CPT-96131 Abx/Therapy Injection 08:35:44 CDT CPT-16052 Immunization Single Admin 11:07:16 CDT CPT-28944 Hepatitis B adult IM 11:07:16 CDT CPT-J3420 Vitamin B12 1000mcg (Cyanocobalamin) 11:00:49 CDT 08/28 CPT-J1040 Depo Medrol 80 mg (Methyl Prednisolone Acetate) 11:00: 49 CDT CPT-92639 Abx/Therapy Injection 11:00:49 CDT CPT-J1040 Depo Medrol 80 mg (Methyl Prednisolone Acetate) 09:16: 23 CDT CPT-J3420 Vitamin B12 1000mcg (Cyanocobalamin) 08:27:05 CDT 08/20 CPT-56370 Abx/Therapy Injection 08:27:05 CDT CPT-10161 Recombivax HB Injection Suspension 5 MCG/0.5ML 10:00:41 CDT CPT-30328 Administration single or combination vaccine inc oral 10 :00:41 CDT CPT-74303 Sono transvag pelvis non OB uterus ovaries cervix 16:36: 57 CDT CPT-54998 LS spine comp w obliq 09:50:55 SENIOR PAYROLL ADMINISTRATOR CPT-52075 Abd compl w upright 09:50:55 SENIOR PAYROLL ADMINISTRATOR CPT-J1100 Decadron 4mg (Dexamethasone) 15:51:24 SENIOR PAYROLL ADMINISTRATOR CPT-J1030 Depo Medrol 40 mg (Methyl Prednisolone Acetate) 15:51: 24 SENIOR PAYROLL ADMINISTRATOR CPT-04223 Abx/Therapy Injection 15:51:24 SENIOR PAYROLL ADMINISTRATOR CPT-J1100 Decadron 4mg (Dexamethasone) 15:26:33 SENIOR PAYROLL ADMINISTRATOR CPT-J1030 Depo Medrol 40 mg (Methyl Prednisolone Acetate) 15:26: 33 SENIOR PAYROLL ADMINISTRATOR CPT-56938 Sono retroperitoneal complete kidneys and bladder 17:15: 30 CDT CPT-47608 Abd compl w upright 16:09:25 CDT CPT-J1100 Decadron 8mg (Dexamethasone) 17:07:57 CDT CPT-49522 Abx/Therapy Injection 17:07:57 CDT CPT-J1100 Decadron 8mg (Dexamethasone) 16:55:24 CDT CPT-68761 Chest 2V Frontal and Lat 16:32:44 CDT
--- OUTSIDE RECORDS SUMMARY | 2016-11-04 22:54 | XMS REPORT | Clinical Summary ---
Author Author Admin, E Organization [employer] Address Unknown Phone Unavailable Allergies, Adverse Reactions, [...] TAB 1 tablet by mouth daily FLUCONAZOLE 12085767979 Active Neeraj Collins MD Active TIZANIDINE HCL 4 MG TABS 1 po q6hr PRN Muscle Spasm/Back Pain TIZANIDINE HCL 91840808314 Active Vishal Hui MD Active CLINDAMYCIN HCL 150 MG CAPS 1 four times a day CLINDAMYCIN HCL 47713686685 No Longer Active Neeraj Collins MD Active KEFLEX 500 MG ORAL CAPS 1 cap QID by mouth CEPHALEXIN 18760579166 No Longer Active Neeraj Collins MD Active DIFLUCAN 150 MG TABS 1 pill every other day x 2 doses FLUCONAZOLE 97315223371 No Longer Active Sahara Rodriguez MD PhD Active MELATONIN 3 MG CAPS 2 po q hs MELATONIN 77099997493 No Longer Active Sahara Rodriguez MD PhD Active MULTIVITAMINS CAPS Take one by mouth daily MULTIPLE VITAMIN 43667775640 No Longer Active Sahara Rodriguez MD PhD Active BACTRIM DS 800-160 MG TAB 1 tab by mouth twice daily TRIMETHOPRIM-SULFAMETHOXAZOLE 76901486596 No Longer Active Sahara Rodriguez MD PhD Active [facility] PROBIOTIC ORAL CHEW 2 daily po PROBIOTIC PRODUCT 30231003785 No Longer Active Sahara Rodriguez MD PhD Active IBUPROFEN 600 MG TAB 1 po TID PRN IBUPROFEN 98967041166 Active Luigi Martínez STOCK TAKER Active BACTRIM DS 800-160 MG TABS 1 po BID x 7 days SULFAMETHOXAZOLE-TRIMETHOPRIM 46744093613 No Longer Active Vishal Hui MD Active CHANTIX STARTING MONTH EARNEST 0.5 MG X 11 & 1 MG X 42 TABS 0.5mg daily for 3 days , then 0.5mg BID for 4 days, then 1mg BID VARENICLINE TARTRATE 71059259363 No Longer Active TAMARA Gray Active METOPROLOL TARTRATE 50 MG TAB 1 po bid METOPROLOL TARTRATE 41117937450 Active Vishal Hui MD Active TRAZODONE HCL 100 MG TAB take 1 at bedtime TRAZODONE HCL 08763615277 Active Vishal Hui MD Active AMLODIPINE BESYLATE 5 MG TABS 1 tablet by mouth daily AMLODIPINE BESYLATE 12143279836 Active Vishal Hui MD Active VERAPAMIL HCL CR 120 MG TAB CR 1 po bid VERAPAMIL HCL 99920121988 No Longer Active Vishal Hui MD Active METOPROLOL SUCCINATE 50 MG TB24 1 tablet by mouth daily METOPROLOL SUCCINATE 11072201114 No Longer Active Vishal Hui MD Active TRAMADOL HCL 50 MG TABS 1-2 po TID PRN Pain TRAMADOL HCL 99533388590 Active Vishal Hui MD Active SAPHRIS 5 MG SUBL 1 po bid ASENAPINE MALEATE 33374359678 Active Vishal Hui MD Active SAPHRIS 10 MG SUBL 1 tab po bid ASENAPINE MALEATE 89438611351 No Longer Active Vishal Hui MD Active LISINOPRIL 20 MG TABS 1 tab po qd LISINOPRIL 32868503339 No Longer Active Vishal Hui MD Active BENADRYL 25 MG CAP 2 po tid prn anxiety DIPHENHYDRAMINE HCL 48298286154 Active Vishal Hui MD Active LATUDA 80 MG TABS Take one by mouth daily LURASIDONE HCL 89704710802 Active Vishal Hui MD Active LATUDA 20 MG TABS Take one by mouth daily LURASIDONE HCL 22651988307 No Longer Active Vishal Hui MD Active TRAZODONE HCL 50 MG TABS 1/2 tab po qd prn for anxiety TRAZODONE HCL 72742760545 No Longer Active Vishal Hui MD Active PIROXICAM 20 MG CAPS 1 cap po qd PRN Pain PIROXICAM 56879754862 Active Vishal Hui MD Active OMEPRAZOLE 20 MG TBEC 1 po q a.m. 30min prior to first food intake OMEPRAZOLE 27682387382 Active Vishal Hui MD Active RANITIDINE HCL 150 MG CAPS 1 twice a day RANITIDINE HCL 77925007456 Active Vishal Hui MD Active PROZAC 20 MG CAP Take one by mouth daily FLUOXETINE HCL 67254257802 Active Vishal Hui MD Active LINZESS 290 MCG CAPS Take one by mouth daily LINACLOTIDE 27687661214 Active Vishal Hui MD Active SAPHRIS 5 MG SUBL 1 tab po qd ASENAPINE MALEATE 40083978237 No Longer Active Vishal Hui MD Active ZALEPLON 10 MG CAPS 1 cap po every other night ZALEPLON 37642536605 No Longer Active Vishal Hui MD Active LYRICA 50 MG CAPS 1 tab po TID PREGABALIN 98364433065 No Longer Active Vishal Hui MD Active LORATADINE 10 MG TABS 1 tab po qd LORATADINE 37387585646 No Longer Active Vishal Hui MD Active VERAPAMIL HCL ER 180 MG CR-TABS 1 tab po bid VERAPAMIL HCL 00415823967 No Longer Active Vishal Hui MD Active MIRALAX POWD 1 capfull once daily POLYETHYLENE GLYCOL 3350 34310076425 No Longer Active Vishal Hui MD Active PREDNISONE 20 MG TABS 1 tab po qd PREDNISONE 89216310038 No Longer Active Renzo Thornton DO Active LEVOFLOXACIN 500 MG TABS 1 tab po qd LEVOFLOXACIN 25566717684 No Longer Active Renzo Thornton DO Active BUSPIRONE HCL 15 MG TABS 1 tab po TID BUSPIRONE HCL 58006615418 No Longer Active Renzo Thornton DO Active BENZTROPINE MESYLATE 1 MG TABS 1 tab po qd BENZTROPINE MESYLATE 67199831251 No Longer Active Renzo Thornton DO Active ATENOLOL 25 MG TABS 1 tab po qd ATENOLOL 25880957149 No Longer Active Renzo Thornton DO Active ESCITALOPRAM OXALATE 20 MG TABS 1 tab po qd ESCITALOPRAM OXALATE 83476611111 No Longer Active Renzo Thornton DO Active ADVAIR DISKUS 250-50 MCG/DOSE AEPB 1 puff BID FLUTICASONE-SALMETEROL 91668522623 No Longer Active Renzo Thornton DO Active PREDNISONE 20 MG TAB 2 tabs daily for 3 days, 1 tab daily for 3 days, 1/2 tab daily for 2 days PREDNISONE 73604530879 No Longer Active Vishal Hui MD Active CEFDINIR 300 MG CAPS by mouth twice a day CEFDINIR 52177765325 No Longer Active Vishal Hui MD Active LANSOPRAZOLE 30 MG CPDR 1 cap po qd LANSOPRAZOLE 73337454091 No Longer Active Vishal Hui MD Active TOPAMAX 25 MG TABS 1 tab po bid TOPIRAMATE 35758305254 Active Vishal Hui MD Active MINIPRESS 2 MG CAPS 1 cap po at night PRAZOSIN HCL 23902790781 Active Vishal Hui MD Active BACLOFEN 20 MG TABS 1 tab po tid BACLOFEN 39527530681 No Longer Active Vishal Hui MD Active ADVAIR DISKUS 250-50 MCG/DOSE AEPB 1 puff BID ADVAIR DISKUS 250-50 MCG/DOSE AEPB FLUTICASONE-SALMETEROL Inactive ESCITALOPRAM OXALATE 20 MG TABS 1 tab po qd ESCITALOPRAM OXALATE 20 MG TABS 890830 ESCITALOPRAM OXALATE Inactive ATENOLOL 25 MG TABS 1 tab po qd ATENOLOL 25 MG TABS 337036 ATENOLOL Inactive BENZTROPINE MESYLATE 1 MG TABS 1 tab po qd BENZTROPINE MESYLATE 1 MG TABS 692065 BENZTROPINE MESYLATE Inactive BUSPIRONE HCL 15 MG TABS 1 tab po TID BUSPIRONE HCL 15 MG TABS 815074 BUSPIRONE HCL Inactive LEVOFLOXACIN 500 MG TABS 1 tab po qd LEVOFLOXACIN 500 MG TABS 441468 LEVOFLOXACIN Inactive PREDNISONE 20 MG TABS 1 tab po qd PREDNISONE 20 MG TABS 129001 PREDNISONE Inactive MIRALAX POWD 1 capfull once daily MIRALAX POWD 487650 POLYETHYLENE GLYCOL 3350 Inactive VERAPAMIL HCL ER 180 MG CR-TABS 1 tab po bid VERAPAMIL HCL ER 180 MG CR-TABS VERAPAMIL HCL Inactive LORATADINE 10 MG TABS 1 tab po qd LORATADINE 10 MG TABS 393810 LORATADINE Inactive LYRICA 50 MG CAPS 1 tab po TID LYRICA 50 MG CAPS PREGABALIN Inactive ZALEPLON 10 MG CAPS 1 cap po every other night ZALEPLON 10 MG CAPS 162630 ZALEPLON Inactive SAPHRIS 5 MG SUBL 1 tab po qd SAPHRIS 5 MG SUBL ASENAPINE MALEATE Inactive TRAZODONE HCL 50 MG TABS 1/2 tab po qd prn for anxiety TRAZODONE HCL 50 MG TABS 027775 TRAZODONE HCL Inactive LATUDA 20 MG TABS Take one by mouth daily LATUDA 20 MG TABS LURASIDONE HCL Inactive LISINOPRIL 20 MG TABS 1 tab po qd LISINOPRIL 20 MG TABS 075224 LISINOPRIL Inactive SAPHRIS 10 MG SUBL 1 [...] po q hs MELATONIN 3 MG CAPS 353342 MELATONIN Inactive KEFLEX 500 MG ORAL CAPS 1 cap QID by mouth KEFLEX 500 MG ORAL CAPS 219677 CEPHALEXIN Inactive CLINDAMYCIN HCL 150 MG CAPS 1 four times a day CLINDAMYCIN HCL 150 MG CAPS 266615 CLINDAMYCIN HCL Inactive CEFDINIR 300 MG CAPS by mouth twice a day CEFDINIR 300 MG CAPS 329958 CEFDINIR Inactive PREDNISONE 20 MG TAB 2 tabs daily for 3 days, 1 tab daily for 3 days, 1/2 tab daily for 2 days PREDNISONE 20 MG TAB 377510 PREDNISONE Inactive BACTRIM DS 800-160 MG TABS 1 po BID x 7 days BACTRIM DS 800-160 MG TABS SULFAMETHOXAZOLE-TRIMETHOPRIM Inactive DIFLUCAN 150 MG TABS 1 pill every other day x 2 doses DIFLUCAN 150 MG TABS 077584 FLUCONAZOLE Inactive Vital Signs Date Name Value [...] U/L Chart Maintenance: outside labs entered on [facility] - Hematology leukocyte count, blood 8.9 10*3/mm3 hemoglobin, blood 13.2 g/dL platelet count 364 10*3/mm3 Lab Report: CBC, Comp. Metabolic Panel, Free Thyroxine (L), Thyroid Stim ... - Chemistry sodium, serum 140 mmol/L 266-213 8044/05/28 potassium, serum 4.2 mmol/L 3.5-5.2 chloride, serum [...] Panel - Chemistry sodium, serum 141 mmol/L 117-719 8458 potassium, serum 4.3 mmol/L 3.5-5.2 chloride, serum [...] Panel - Chemistry sodium, serum 139 mmol/L 442-187 5078/12/31 potassium, serum 4.8 mmol/L 3.5-5.2 chloride, serum 106 mmol/L 98-107 carbon dioxide, venous blood 24.3 mmol/L 21.0-32.0 blood glucose 90 mg/dL 65-110 urea nitrogen, blood 16 mg/dL 7-18 creatinine, serum 1.00 mg/dL 0.60-1.30 alanine aminotransferase (SGPT), serum 41 U/L -78 aspartate aminotransferase (SGOT), serum 17 U/L 15-37 calcium, serum 8.6 mg/dL 8.5-10.1 bilirubin, serum, total 0.30 mg/dL 0.00-1.00 cholesterol, serum 108 mg/dL 787-088 8769/12/31 triglyceride, serum, fasting 120 mg/dL 30-200 HDL [...] semiquantitative 7.0 5.0-8.5 Lab Report: Varicella-Zoater Inga IgG,IgM/87851, HEP Be Antibody/556, RUB ... - Serology rubella antibody, serum, IgG 2.88 Encounters Code Encounter Date Provider Facility [facility]-[id number] Level 3 Est. Patient 12:00:41 CDT Neeraj Collins MD [facility] CPT-84468 Level 3 Est. Patient 09:16:24 CDT Vishal Hui MD [facility]-63891 Level 4 Est. Patient 13:59:09 CDT Neeraj Collins MD [facility] CPT-94550 Level 3 Est. Patient 15:19:43 CDT Renzo Thornton DO [facility] CPT-66348 Level 3 Est. Patient 18:10:26 CDT Sahara Rodriguez MD PhD [facility] CPT-84193 Level 3 Est. Patient 14:49:50 CDT iVshal Hui MD [facility]-42986 Level 4 Est. Patient 18:41:46 CDT Neeraj Collins MD [facility]-45302 Level 4 Est. Patient 09:18:38 [employer] Vishal Hui MD [facility]-51687 Level 3 Est. Patient 14:43:55 [employer] Vishal Hui MD [facility] CPT-95696 Level 3 Est. Patient 15:26:33 [employer] Sahara Rodriguez MD PhD [facility] CPT-54837 Level 3 Est. Patient 10:32:14 [employer] Vishal Hui MD [facility] CPT-09566 Level 3 Est. Patient 15:12:52 [employer] Vishal Hui MD [facility] CPT-49361 Level 4 Est. Patient 09:19:27 CDT Vishal Hui MD [facility] CPT-41784 Level 3 Est. Patient 15:53:00 CDT Renzo Thornton [facility] CPT-34959 Level 3 Est. Patient 15:50:30 CDT Renzo Thornton [facility] CPT-28530 Level 3 Est. Patient 16:55:24 CDT Vishal Hui MD [facility] Procedures Code Procedure Name Date Entry Date Standard Description CPT-J3420 Vitamin B12 1000mcg (Cyanocobalamin) 09:18:52 CDT 09/11 CPT-06347 Abx/Therapy Injection 09:18:52 CDT CPT-J3420 Vitamin B12 1000mcg (Cyanocobalamin) 08:35:44 CDT 09/04 CPT-06627 Abx/Therapy Injection 08:35:44 CDT CPT-98767 Immunization Single Admin 11:07:16 CDT CPT-77645 Hepatitis B adult IM 11:07:16 CDT CPT-J3420 Vitamin B12 1000mcg (Cyanocobalamin) 11:00:49 CDT 08/28 CPT-J1040 Depo Medrol 80 mg (Methyl Prednisolone Acetate) 11:00: 49 CDT CPT-25264 Abx/Therapy Injection 11:00:49 CDT CPT-J1040 Depo Medrol 80 mg (Methyl Prednisolone Acetate) 09:16: 23 CDT CPT-J3420 Vitamin B12 1000mcg (Cyanocobalamin) 08:27:05 CDT 08/20 CPT-55087 Abx/Therapy Injection 08:27:05 CDT CPT-88952 Recombivax HB Injection Suspension 5 MCG/0.5ML 10:00:41 CDT CPT-30528 Administration single or combination vaccine inc oral 10 :00:41 CDT CPT-28338 Sono transvag pelvis non OB uterus ovaries cervix 16:36: 57 CDT CPT-80336 LS spine comp w obliq 09:50:55 [employer] CPT-20925 Abd compl w upright 09:50:55 [employer] CPT-J1100 Decadron 4mg (Dexamethasone) 15:51:24 [employer] CPT-J1030 Depo Medrol 40 mg (Methyl Prednisolone Acetate) 15:51: 24 [employer] CPT-18244 Abx/Therapy Injection 15:51:24 [employer] CPT-J1100 Decadron 4mg (Dexamethasone) 15:26:33 [employer] CPT-J1030 Depo Medrol 40 mg (Methyl Prednisolone Acetate) 15:26: 33 [employer] CPT-78523 Sono retroperitoneal complete kidneys and bladder 17:15: 30 CDT CPT-30434 Abd compl w upright 16:09:25 CDT CPT-J1100 Decadron 8mg (Dexamethasone) 17:07:57 CDT CPT-48371 Abx/Therapy Injection 17:07:57 CDT CPT-J1100 Decadron 8mg (Dexamethasone) 16:55:24 CDT CPT-82250 Chest 2V Frontal and Lat 16:32:44 CDT
--- OUTSIDE RECORDS SUMMARY | 2016-11-04 22:54 | XMS REPORT ---
Author Author [facility] Medical Staff Organization [facility] Address [address] [place], [place] [id number] Phone [phone] Care Team Providers Care Ophthalmic Medical Assistant Name Role Phone DENICE OCHOA MD PP [phone] Summary purpose TRANSITION OF CARE AUTO GENERATION [...] tests and/or laboratory data RESULTS Routine Urinalysis [id number]:35:00 Result Normal Range Units Color YELLOW Clarity Cloudy Specific [place] 1.022 1.003-1.035 pH 5.5 4.5-8.0 Glucose NEGATIVE Bilirubin NEGATIVE Ketones NEGATIVE Protein NEGATIVE Urobilinogen 0.2 0-0.2 E.U./dL Nitrites NEGATIVE Blood NEGATIVE Leukocytes NEGATIVE WBCs 5-10 RBCs 0-5 Squamous Epithelial 2+ Bacteria 2+ Drug Screen In House [id number]:35:00 Result Normal Range Units Amphetamine AB Positive [...] MPV 10.2 7.3-10.4 FL History of procedures No procedures recorded for this patient visit. Functional status Functional Status Finding Observation Time Abdomen Appearance obese :45 Abdomen non-tender :45 Vick no :45 Urination normal :45 Quality sym/unlabored :45 Cough absent : Secretions no :45 Airway natural : Chest Tube no : Oxygen no :35 Temp >100.4 no : Temp <96.8 no :45 Chills with rigors no : HR > 90bpm no : Respirations > 20 no : Systolic <90 no :45 headache stiff neck no :45 Nursing Note pt exited out ambulance door in care of CPD RICHARD. pt belongings and med in care of pt. :42 Vital signs Type Value Date Respiration Rate 18breaths per minute :35 Pulse 77beats per minute :35 Oxygen Saturation 98% :35 BP Systolic 99mmHg :35 BP Diastolic 68mmHg :35 Temperature 97.9F :35 Social history Type Value Smoking Status CURRENT EVERY DAY SMOKER Treatment Plan No treatment plan text is available for this visit. Hospital discharge instructions Dismissal Condition good Disposition on DC home DC Inst/Educ Give yes Med/Side Effects Rev yes Flu Vac 2014
--- OUTSIDE RECORDS SUMMARY | 2016-11-04 22:57 | XMS REPORT | Clinical Summary ---
[...] Hui MD FANAPT heart palpitations Critical Active Vishla Hui MD SEROQUEL Critical Active Vishal Hui [...] breath Nocturnal hypoxia 799.02 Active Fabiola Johnson EXPEDITER CLERK Hypoxemia Neck pain 723.1 Resolved Vishal [...] Hui MD Nevus, 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 Inactive Vishal uHi MD Encounter for removal of sutures ICD-V58.32 [...] 6 hours as needed for cough GUAIFENESIN-CODEINE 88138278329 Active Ahmet Carbajal MD Active PREDNISONE 20 MG TABS 2 daily for 5 days then 1 daily for 5 days PREDNISONE 90483412580 Active Ahmet Carbajal MD Active LAMICTAL 100 MG ORAL TABS 1 tab q.d LAMOTRIGINE 42047499934 Active Ahmet Carbajal MD Active BENADRYL 25 MG CAP 4 po at bedtime for insomnia DIPHENHYDRAMINE HCL 36254500167 No Longer Active Ahmet Carbajal MD Active ADVAIR DISKUS 250-50 MCG/DOSE INH AEPB 1 puff twice a day for asthma FLUTICASONE-SALMETEROL 26252175182 No Longer Active Ahmet Carbajal MD Active KLONOPIN 1 MG ORAL TABS 1 tab po TID CLONAZEPAM 27268467364 No Longer Active Ahmet Carbajal MD Active ABILIFY MAINTENA 400 MG IM SUSR 400mg injection every 26 days ARIPIPRAZOLE 97116676467 No Longer Active Ahmet Carbajal MD Active HALOPERIDOL 10 MG ORAL TABS 1 tab q.d HALOPERIDOL 36786337216 Active Ahmet Carbajal MD Active ASPIRIN 325 MG ORAL TABS 1 tab q.d ASPIRIN 63683234012 Active Ahmet Carbajal MD Active HYDROCODONE-ACETAMINOPHEN 5-325 MG ORAL TABS 1 tab two times a day HYDROCODONE-ACETAMINOPHEN 08231663563 Active Ahmet Carbajal MD Active TRAMADOL HCL 50 MG TABS 1/2-1 tab TID PRN TRAMADOL HCL 94526472662 No Longer Active Ahmet Carbajal MD Active BACTRIM DS 800-160 MG TABS 1 twice a day SULFAMETHOXAZOLE- TRIMETHOPRIM 71236937609 No Longer Active Ahmet Carbajal MD Active PROAIR HFA 108 (90 BASE) MCG/ACT AERS 2 puffs four times a day as needed 2015 ALBUTEROL SULFATE 97241614629 Active Ahmet Crabajal MD Active EQ NICOTINE 21 MG/24HR TRANS PT24 Apply daily to stop smoking NICOTINE 21080794613 Active Ahmet Carbajal MD Active MONISTAT 7 COMBO PACK WOODROW 100 & 2 MG-% (9GM) VAG KIT 1 applicatorful per vagina q pm x 7 MICONAZOLE NITRATE 54811150401 No Longer Active Ahmet Carbajal MD Active FLAGYL 500 MG TAB 1 tablet by mouth bid METRONIDAZOLE 84186699903 No Longer Active Ahmet Carbajal MD Active OXYCODONE HCL ER 10 MG ORAL T12A 1/2 tab by mouth every 4 hours prn OXYCODONE HCL 40688892352 No Longer Active Ahmet Carbajal MD Active METHYLPREDNISOLONE 4 MG ORAL TABS po daily METHYLPREDNISOLONE 69600259775 No Longer Active Ahmet Carbajal MD Active LEVOFLOXACIN 500 MG ORAL TABS po daily LEVOFLOXACIN 58556324166 No Longer Active Ahmet Carbajal MD Active VIIBRYD 10 MG ORAL TABS Take 1 tablet once a day VILAZODONE HCL 64979516987 No Longer Active Ahmet Carbajal MD Active TOPAMAX 50 MG ORAL TABS 1 tab twice daily TOPIRAMATE 12974283046 No Longer Active Ahmet Carbajal MD Active DICLOFENAC SODIUM 50 MG TBEC 1 tablet by mouth four times daily PRN Pain 2015 DICLOFENAC SODIUM 00896155892 No Longer Active Ahmet Carbajal MD Active ADZENYS XR-ODT 6.3 MG ORAL TBED 1 tab po daily for ADHD AMPHETAMINE 72945952771 No Longer Active Ahmet Carbajal MD Active CHANTIX 1 MG TABS 1 twice a day to help quit smoking VARENICLINE TARTRATE 47725783935 No Longer Active Dipika Burgos MD Active CHANTIX STARTING MONTH EARNEST 0.5 MG X 11 & 1 MG X 42 TABS take as directed 2015 VARENICLINE TARTRATE 77159981256 No Longer Active Dipika Burgos MD Active TESSALON PERLES 100 MG CAP 1 to 2 tablets by mouth 3 times daily as needed for cough BENZONATATE 56571465493 No Longer Active Luigi Martínez EXPEDITER CLERK Active IMITREX 50 MG ORAL TABS 0.5 po x 1 PRN Headache. May repeat dose x 1 in 2 hours if needed SUMATRIPTAN SUCCINATE 64181021439 Active Lynda Xiao POLE CUTTER Active HYDROCODONE-ACETAMINOPHEN 5-325 MG TABS 1 to 2 four times a day as needed for pain use until can be seen by specialist HYDROCODONE- ACETAMINOPHEN 40532547036 No Longer Active Vishal Hui MD Active PROAIR HFA 108 (90 BASE) MCG/ACT AERS 2 puffs four times a day as needed 2015 ALBUTEROL SULFATE 09147223213 No Longer Active Vishal Hui MD Active PREDNISONE 20 MG TABS 2 daily for 5 days then 1 daily for 5 days PREDNISONE 79681836277 No Longer Active Vishal Hui MD Active ZITHROMAX Z-EARNEST 250 MG TABS 2 today and then 1 daily for 4 days AZITHROMYCIN 30311989368 No Longer Active Vishal Hui MD Active DICLOFENAC POTASSIUM TABS Take 1 tablet twice a day (pt. is not sure of the dose.) DICLOFENAC POTASSIUM TABS 38766451970 No Longer Active Vishal Hui MD Active VERAPAMIL HCL ER 120 MG ORAL CR-TABS Take 1 tablet by mouth twice a day. VERAPAMIL HCL 81067293383 Active Vishal Hui MD Active FLAGYL 500 MG TAB 1 tablet by mouth bid METRONIDAZOLE 04612255249 No Longer Active Vishal Hui MD Active FLUTICASONE PROPIONATE 50 MCG/ACT SUSP 2 sprays each nostril daily before bed. FLUTICASONE PROPIONATE 83640426073 Active Fabiola Johnson APRN Active VALIUM 5 MG TAB Take 1-2 tablets daily DIAZEPAM 74333552485 No Longer Active Fabiola Johnson APRN Active METOPROLOL TARTRATE 25 MG ORAL TABS 1/2 tablet twice daily for heart rate and blood pressure METOPROLOL TARTRATE 90353678685 No Longer Active Fabiola Johnson APRN Active MIRALAX ORAL POWD 17GMS DAILY IN WATER POLYETHYLENE GLYCOL 3350 28106330425 Active Vishal Hui MD Active MIRALAX PACK 1 po qd PRN Constipation POLYETHYLENE GLYCOL 3350 11624865528 No Longer Active Ahmet Carbajal MD Active MINIPRESS 2 MG CAPS 4 cap po at night PRAZOSIN HCL 10813275317 No Longer Active Ahmet Carbajal MD Active PIROXICAM 20 MG CAPS 1 cap po qd PRN Pain PIROXICAM 30240036010 No Longer Active Ahmet Carbajal MD Active TRAMADOL HCL 50 MG TABS 1-2 po TID PRN Pain TRAMADOL HCL 08981373340 No Longer Active Ahmet Carbajal MD Active METOPROLOL TARTRATE 50 MG TAB 1 po bid METOPROLOL TARTRATE 35549745423 No Longer Active Ahmet Carbajal MD Active ABILIFY 15 MG ORAL TABS 1 tab daily ARIPIPRAZOLE 84966977381 No Longer Active Ahmet Carbajal MD Active PROZAC 20 MG ORAL CAPS 1 tab daily FLUOXETINE HCL 80314411087 No Longer Active Ahmet Carbajal MD Active AMBIEN 5 MG ORAL TABS 1 tab at bedtime ZOLPIDEM TARTRATE 45420720352 No Longer Active Ahmet Carbajal MD Active PREDNISONE 20 MG TAB 2 tabs daily for 4 days, 1 tab daily for 4 days, 1/2 tab daily for 4 days PREDNISONE 87077746120 No Longer Active Ahmet Carbajal MD Active KEFLEX 500 MG CAP 1 po TID x 10 days CEPHALEXIN 37644662892 No Longer Active Vishal Hui MD Active SAPHRIS 5 MG SUBL 1 po bid ASENAPINE MALEATE 48989217411 No Longer Active Jillina Fralebron EXPEDITER CLERK Active LATUDA 80 MG TABS Take one by mouth daily LURASIDONE HCL 26923960843 No Longer Active Jillina Frazelephraim EXPEDITER CLERK Active AMLODIPINE BESYLATE 5 MG TABS 1 tablet by mouth daily AMLODIPINE BESYLATE 14987190822 No Longer Active Jillina Fralebron EXPEDITER CLERK Active AMITRIPTYLINE HCL 100 MG TAB one at hs AMITRIPTYLINE HCL 73339898352 No Longer Active Vishal Hui MD Active TRAZODONE HCL 100 MG TAB take 1 at bedtime TRAZODONE HCL 14044796067 No Longer Active Vishal Hui MD Active VYVANSE 40 MG CAPS 1 daily, LISDEXAMFETAMINE DIMESYLATE 95087557306 No Longer Active Vishal Hui MD Active IBUPROFEN 600 MG TAB 1 po TID PRN IBUPROFEN 50431865388 No Longer Active Vishal Hui MD Active PROZAC 20 MG CAP Take one by mouth daily FLUOXETINE HCL 22963595576 No Longer Active Vishal Hui MD Active ZOFRAN 4 MG TABS 1 po q6hr PRN Nausea ONDANSETRON HCL Active Vishal Hui MD Active BACTRIM DS 800-160 MG TABS 1 pill by mouth twice daily SULFAMETHOXAZOLE-TRIMETHOPRIM 16257316834 No Longer Active Sahara Rodriguez MD PhD Active DIFLUCAN 150 MG TAB 1 tablet by mouth daily FLUCONAZOLE 36296132674 No Longer Active Vishal Hui MD Active TIZANIDINE HCL 4 MG TABS 1 po q6hr PRN Muscle Spasm/Back Pain TIZANIDINE HCL 24855042342 Active Vishal Hui MD Active CLINDAMYCIN HCL 150 MG CAPS 1 four times a day CLINDAMYCIN HCL 01251237705 No Longer Active Neeraj Collins MD Active KEFLEX 500 MG ORAL CAPS 1 cap QID by mouth CEPHALEXIN 31274049193 No Longer Active Neeraj Collins MD Active DIFLUCAN 150 MG TABS 1 pill every other day x 2 doses FLUCONAZOLE 86354644497 No Longer Active Sahara Rodriguez MD PhD Active MELATONIN 3 MG CAPS 2 po q hs MELATONIN 92475416502 No Longer Active Sahara Rodriguez MD PhD Active MULTIVITAMINS CAPS Take one by mouth daily MULTIPLE VITAMIN 25801115082 No Longer Active Sahara Rodriguez MD PhD Active BACTRIM DS 800-160 MG TAB 1 tab by mouth twice daily TRIMETHOPRIM-SULFAMETHOXAZOLE 70480425613 No Longer Active Sahara Rodriguez MD PhD Active [facility] PROBIOTIC ORAL CHEW 2 daily po PROBIOTIC PRODUCT 63258126139 No Longer Active Sahara Rodriguez MD PhD Active BACTRIM DS 800-160 MG TABS 1 po BID x 7 days SULFAMETHOXAZOLE-TRIMETHOPRIM 09115761681 No Longer Active Vishal Hui MD Active CHANTIX STARTING MONTH EARNEST 0.5 MG X 11 & 1 MG X 42 TABS 0.5mg daily for 3 days , then 0.5mg BID for 4 days, then 1mg BID VARENICLINE TARTRATE 11214370352 No Longer Active TAMARA Gray Active VERAPAMIL HCL CR 120 MG TAB CR 1 po bid VERAPAMIL HCL 74148127776 No Longer Active Vishal Hui MD Active METOPROLOL SUCCINATE 50 MG TB24 1 tablet by mouth daily METOPROLOL SUCCINATE 53300490780 No Longer Active Vishal Hui MD Active SAPHRIS 10 MG SUBL 1 tab po bid ASENAPINE MALEATE 02233756537 No Longer Active Vishal Hui MD Active LISINOPRIL 20 MG TABS 1 tab po qd LISINOPRIL 85317074332 No Longer Active Vishal Hui MD Active LATUDA 20 MG TABS Take one by mouth daily LURASIDONE HCL 93132949441 No Longer Active Vishal Hui MD Active TRAZODONE HCL 50 MG TABS 1/2 tab po qd prn for anxiety TRAZODONE HCL 24753802596 No Longer Active Vishal Hui MD Active OMEPRAZOLE 20 MG TBEC 1 po q a.m. 30min prior to first food intake OMEPRAZOLE 07180917792 Active Vishal Hui MD Active RANITIDINE HCL 150 MG CAPS 1 twice a day RANITIDINE HCL 77185834234 Active Luigi Martínez APRN Active LINZESS 290 MCG CAPS Take one by mouth daily LINACLOTIDE 99555615586 No Longer Active Vishal Hui MD Active SAPHRIS 5 MG SUBL 1 tab po qd ASENAPINE MALEATE 60839430399 No Longer Active Vishal Hui MD Active ZALEPLON 10 MG CAPS 1 cap po every other night ZALEPLON 81158363909 No Longer Active Vishal Hui MD Active LYRICA 50 MG CAPS 1 tab po TID PREGABALIN 77646142913 No Longer Active Vishal Hui MD Active LORATADINE 10 MG TABS 1 tab po qd LORATADINE 40604187829 No Longer Active Vishal Hui MD Active VERAPAMIL HCL ER 180 MG CR-TABS 1 tab po bid VERAPAMIL HCL 90940938341 No Longer Active Vishal Hui MD Active MIRALAX POWD 1 capfull once daily POLYETHYLENE GLYCOL 3350 89778859095 No Longer Active Vishal Hui MD Active PREDNISONE 20 MG TABS 1 tab po qd PREDNISONE 72992634694 No Longer Active Renzo Thornton DO Active LEVOFLOXACIN 500 MG TABS 1 tab po qd LEVOFLOXACIN 60117689235 No Longer Active Renzo Thornton DO Active BUSPIRONE HCL 15 MG TABS 1 tab po TID BUSPIRONE HCL 35284316843 No Longer Active Renzo Thornton DO Active BENZTROPINE MESYLATE 1 MG TABS 1 tab po qd BENZTROPINE MESYLATE 22781512588 No Longer Active Renzo Thornton DO Active ATENOLOL 25 MG TABS 1 tab po qd ATENOLOL 30102808309 No Longer Active Renzo Thornton DO Active ESCITALOPRAM OXALATE 20 MG TABS 1 tab po qd ESCITALOPRAM OXALATE 08138278820 No Longer Active Renzo Thornton DO Active ADVAIR DISKUS 250-50 MCG/DOSE AEPB 1 puff BID FLUTICASONE-SALMETEROL 37093867672 No Longer Active Renzo Thornton DO Active PREDNISONE 20 MG TAB 2 tabs daily for 3 days, 1 tab daily for 3 days, 1/2 tab daily for 2 days PREDNISONE 44989575838 No Longer Active Vishal Hui MD Active CEFDINIR 300 MG CAPS by mouth twice a day CEFDINIR 48403225749 No Longer Active Vishal Hui MD Active LANSOPRAZOLE 30 MG CPDR 1 cap po qd LANSOPRAZOLE 44158430385 No Longer Active Vishal Hui MD Active BACLOFEN 20 MG TABS 1 tab po tid BACLOFEN 58882649913 No Longer Active Vishal Hui MD Active ADVAIR DISKUS 250-50 MCG/DOSE AEPB 1 puff BID ADVAIR DISKUS 250-50 MCG/DOSE AEPB FLUTICASONE-SALMETEROL Inactive ESCITALOPRAM OXALATE 20 MG TABS 1 tab po qd ESCITALOPRAM OXALATE 20 MG TABS 156982 ESCITALOPRAM OXALATE Inactive ATENOLOL 25 MG TABS 1 tab po qd ATENOLOL 25 MG TABS 153499 ATENOLOL Inactive BENZTROPINE MESYLATE 1 MG TABS 1 tab po qd BENZTROPINE MESYLATE 1 MG TABS 379762 BENZTROPINE MESYLATE Inactive BUSPIRONE HCL 15 MG TABS 1 tab po TID BUSPIRONE HCL 15 MG TABS 847574 BUSPIRONE HCL Inactive LEVOFLOXACIN 500 MG TABS 1 tab po qd LEVOFLOXACIN 500 MG TABS 900090 LEVOFLOXACIN Inactive PREDNISONE 20 MG TABS 1 tab po qd PREDNISONE 20 MG TABS 894755 PREDNISONE Inactive MIRALAX POWD 1 capfull once daily MIRALAX POWD 180618 POLYETHYLENE GLYCOL 3350 Inactive VERAPAMIL HCL ER 180 MG CR-TABS 1 tab po bid VERAPAMIL HCL ER 180 MG CR-TABS VERAPAMIL HCL Inactive LORATADINE 10 MG TABS 1 tab po qd LORATADINE 10 MG TABS 255563 LORATADINE Inactive LYRICA 50 MG CAPS 1 tab po TID LYRICA 50 MG CAPS PREGABALIN Inactive ZALEPLON 10 MG CAPS 1 cap po every other night ZALEPLON 10 MG CAPS 958372 ZALEPLON Inactive SAPHRIS 5 MG SUBL 1 tab po qd SAPHRIS 5 MG SUBL ASENAPINE MALEATE Inactive TRAZODONE HCL 50 MG TABS 1/2 tab po qd prn for anxiety TRAZODONE HCL 50 MG TABS 021236 TRAZODONE HCL Inactive LATUDA 20 MG TABS Take one by mouth daily LATUDA 20 MG TABS LURASIDONE HCL Inactive LISINOPRIL 20 MG TABS 1 tab po qd LISINOPRIL 20 MG TABS 308908 LISINOPRIL Inactive SAPHRIS 10 MG SUBL 1 [...] twice daily BACTRIM DS 800-160 MG TAB 371445 TRIMETHOPRIM-SULFAMETHOXAZOLE Inactive MULTIVITAMINS CAPS Take one by mouth daily MULTIVITAMINS CAPS MULTIPLE VITAMIN Inactive MELATONIN 3 MG CAPS 2 po q hs MELATONIN 3 MG CAPS 648152 MELATONIN Inactive KEFLEX 500 MG ORAL CAPS 1 cap QID by mouth KEFLEX 500 MG ORAL CAPS 291247 CEPHALEXIN Inactive CLINDAMYCIN HCL 150 MG CAPS 1 four times a day CLINDAMYCIN HCL 150 MG CAPS 943981 CLINDAMYCIN HCL Inactive DIFLUCAN 150 MG TAB 1 tablet by mouth daily DIFLUCAN 150 MG TAB 418061 FLUCONAZOLE Inactive PROZAC 20 MG CAP Take one by mouth daily PROZAC 20 MG CAP 041825 FLUOXETINE HCL Inactive IBUPROFEN 600 MG TAB 1 po TID PRN IBUPROFEN 600 MG TAB 354198 IBUPROFEN Inactive VYVANSE 40 MG CAPS 1 daily, VYVANSE 40 MG CAPS LISDEXAMFETAMINE DIMESYLATE Inactive TRAZODONE HCL 100 MG TAB take 1 at bedtime TRAZODONE HCL 100 MG TAB 950912 TRAZODONE HCL Inactive AMITRIPTYLINE HCL 100 MG TAB one at hs AMITRIPTYLINE HCL 100 MG TAB 599790 AMITRIPTYLINE HCL Inactive AMLODIPINE BESYLATE 5 MG TABS 1 tablet by mouth daily AMLODIPINE BESYLATE 5 MG TABS 211346 AMLODIPINE BESYLATE Inactive LATUDA 80 MG TABS Take one by mouth daily LATUDA 80 MG TABS LURASIDONE HCL Inactive SAPHRIS 5 MG SUBL 1 po bid SAPHRIS 5 MG SUBL ASENAPINE MALEATE Inactive PREDNISONE 20 MG TAB 2 tabs daily for 4 days, 1 tab daily for 4 days, 1/2 tab daily for 4 days PREDNISONE 20 MG TAB 427674 PREDNISONE Inactive AMBIEN 5 MG ORAL TABS 1 tab at bedtime AMBIEN 5 MG ORAL TABS 376190 ZOLPIDEM TARTRATE Inactive PROZAC 20 MG ORAL CAPS 1 tab daily PROZAC 20 MG ORAL CAPS 280168 FLUOXETINE HCL Inactive ABILIFY 15 MG ORAL TABS 1 tab daily ABILIFY 15 MG ORAL TABS 732289 ARIPIPRAZOLE Inactive METOPROLOL TARTRATE 50 MG TAB 1 po bid METOPROLOL TARTRATE 50 MG TAB 257131 METOPROLOL TARTRATE Inactive TRAMADOL HCL 50 MG TABS 1-2 po TID PRN Pain TRAMADOL HCL 50 MG TABS 941153 TRAMADOL HCL Inactive PIROXICAM 20 MG CAPS 1 cap po qd PRN Pain PIROXICAM 20 MG CAPS 475284 PIROXICAM Inactive MINIPRESS 2 MG CAPS 4 cap po at night MINIPRESS 2 MG CAPS 848819 PRAZOSIN HCL Inactive MIRALAX PACK 1 po qd PRN Constipation MIRALAX PACK 904806 POLYETHYLENE GLYCOL 3350 Inactive METOPROLOL TARTRATE 25 MG ORAL TABS 1/2 tablet twice daily for heart rate and blood pressure METOPROLOL TARTRATE 25 MG ORAL TABS 565437 METOPROLOL TARTRATE Inactive VALIUM 5 MG TAB Take 1-2 tablets daily VALIUM 5 MG TAB 638651 DIAZEPAM Inactive FLAGYL 500 MG TAB 1 tablet by mouth bid FLAGYL 500 MG TAB 100259 METRONIDAZOLE Inactive DICLOFENAC POTASSIUM TABS Take 1 tablet twice a day (pt. is not sure of the dose.) DICLOFENAC POTASSIUM TABS DICLOFENAC POTASSIUM TABS Inactive ZITHROMAX Z-EARNEST 250 MG TABS 2 today and then 1 daily for 4 days ZITHROMAX Z-EARNEST 250 MG TABS 3172924 AZITHROMYCIN Inactive PREDNISONE 20 MG TABS 2 daily for 5 days then 1 daily for 5 days PREDNISONE 20 MG TABS 259487 PREDNISONE Inactive PROAIR HFA 108 (90 BASE) MCG/ACT AERS 2 puffs four times a day as needed 2015 PROAIR HFA 108 (90 BASE) MCG/ACT AERS ALBUTEROL SULFATE Inactive HYDROCODONE-ACETAMINOPHEN 5-325 MG TABS 1 to 2 four times a day as needed for pain use until can be seen by specialist HYDROCODONE- ACETAMINOPHEN 5-325 MG TABS 760831 HYDROCODONE-ACETAMINOPHEN Inactive TESSALON PERLES 100 MG CAP 1 to 2 tablets by mouth 3 times daily as needed for cough TESSALON PERLES 100 MG CAP 738264 BENZONATATE Inactive CHANTIX STARTING MONTH EARNEST 0.5 [...] DICLOFENAC SODIUM 50 MG [facility] 172488 DICLOFENAC SODIUM Inactive TOPAMAX 50 MG ORAL TABS 1 tab twice daily TOPAMAX 50 MG ORAL TABS 416548 TOPIRAMATE Inactive VIIBRYD 10 MG ORAL TABS Take 1 tablet once a day VIIBRYD 10 MG ORAL TABS VILAZODONE HCL Inactive LEVOFLOXACIN 500 MG ORAL TABS po daily LEVOFLOXACIN 500 MG ORAL TABS 657423 LEVOFLOXACIN Inactive METHYLPREDNISOLONE 4 MG ORAL TABS po daily METHYLPREDNISOLONE 4 MG ORAL TABS 845938 METHYLPREDNISOLONE Inactive OXYCODONE HCL ER 10 MG ORAL T12A 1/2 tab by mouth every 4 hours prn OXYCODONE HCL ER 10 MG ORAL T12A OXYCODONE HCL Inactive FLAGYL 500 MG TAB 1 tablet by mouth bid FLAGYL 500 MG TAB 216421 METRONIDAZOLE Inactive MONISTAT 7 COMBO PACK WOODROW 100 & 2 MG-% (9GM) VAG KIT 1 applicatorful per vagina q pm x 7 MONISTAT 7 COMBO PACK WOODROW 100 & 2 MG-% (9GM) VAG KIT MICONAZOLE NITRATE Inactive BACTRIM DS 800-160 MG TABS 1 twice a day BACTRIM DS 800-160 MG TABS 806976 SULFAMETHOXAZOLE-TRIMETHOPRIM Inactive TRAMADOL HCL 50 MG TABS 1/2-1 tab TID PRN TRAMADOL HCL 50 MG TABS 620302 TRAMADOL HCL Inactive ABILIFY MAINTENA 400 MG IM SUSR 400mg injection every 26 days ABILIFY MAINTENA 400 MG IM SUSR ARIPIPRAZOLE Inactive KLONOPIN 1 MG ORAL TABS 1 tab po TID KLONOPIN 1 MG ORAL TABS 501752 CLONAZEPAM Inactive ADVAIR DISKUS 250-50 MCG/DOSE INH AEPB 1 puff twice a day for asthma ADVAIR DISKUS 250-50 MCG/DOSE INH AEPB FLUTICASONE- SALMETEROL Inactive BENADRYL 25 MG CAP 4 po at bedtime for insomnia BENADRYL 25 MG CAP DIPHENHYDRAMINE HCL Inactive CEFDINIR 300 MG CAPS by mouth twice a day CEFDINIR 300 MG CAPS 926532 CEFDINIR Inactive PREDNISONE 20 MG TAB 2 tabs daily for 3 days, 1 tab daily for 3 days, 1/2 tab daily for 2 days PREDNISONE 20 MG TAB 595639 PREDNISONE Inactive BACTRIM DS 800-160 MG TABS 1 po BID x 7 days BACTRIM DS 800-160 MG TABS 19820521 SULFAMETHOXAZOLE-TRIMETHOPRIM Inactive DIFLUCAN 150 MG TABS 1 pill every other day x 2 doses DIFLUCAN 150 MG TABS 346829 FLUCONAZOLE Inactive BACTRIM DS 800-160 MG TABS 1 pill by mouth twice daily BACTRIM DS 800-160 MG TABS 542056 SULFAMETHOXAZOLE-TRIMETHOPRIM Inactive KEFLEX 500 MG CAP 1 po TID x 10 days KEFLEX 500 MG CAP 965030 CEPHALEXIN Inactive Advance Directives Directive Description Start [...] % 11.6-14.8 platelet count 394 10^3/MM^3 10*3/mm3 469-029 9225/01/11 leukocyte count, blood 13.8 10^3/MM^3 10*3/mm3 4.6-10.2 [...] 390 10^3/MM^3 10*3/mm3 142-424 Lab Report: Chlamydia/GC APTIMA/[id number] - Lab chlamydia DNA probe NOT DETECTED NOT DETECTED Lab Report: Chlamydia/GC APTIMA/[id number] - Microbiology Neisseria gonorrhoeae DNA probe NOT DETECTED NOT DETECTED Lab Report: Comp. Metabolic Panel - Chemistry sodium, serum 140 mmol/L 346-093 2479/08/08 carbon dioxide, venous blood 33.7 mmol/L 21.0-32.0 potassium, serum 5.0 mmol/L 3.5-5.2 chloride, serum 103 mmol/L 98-107 blood glucose 80 mg/dL 65-110 urea nitrogen, blood 13 mg/dL 7-18 creatinine, serum 0.88 mg/dL 0.55-1.30 alanine aminotransferase (SGPT), serum 54 U/L -78 aspartate aminotransferase (SGOT), serum 29 U/L 15-37 calcium, serum 9.7 mg/dL 8.5-10.1 bilirubin, serum, total 0.30 mg/dL 0.00-1.00 sodium, serum 139 mmol/L 962-112 9850/12/22 carbon dioxide, venous blood 26.8 mmol/L 21.0-32.0 potassium, serum 4.2 mmol/L 3.5-5.2 chloride, serum 103 mmol/L 98-107 blood glucose 115 mg/dL 65-110 urea nitrogen, blood 20 mg/dL 7-18 creatinine, serum 0.90 mg/dL 0.55-1.30 alanine aminotransferase (SGPT), serum 38 U/L -78 aspartate aminotransferase (SGOT), serum 19 U/L 15-37 calcium, serum 8.6 mg/dL 8.5-10.1 bilirubin, serum, total 0.30 mg/dL 0.00-1.00 sodium, serum 139 mmol/L 136-025 9606/01/11 carbon dioxide, venous blood 26.6 mmol/L 21.0-32.0 potassium, serum 4.1 mmol/L 3.5-5.2 chloride, serum 100 mmol/L 98-107 blood glucose 86 mg/dL 65-110 urea nitrogen, blood 16 mg/dL 7-18 creatinine, serum 1.00 mg/dL 0.55-1.30 alanine aminotransferase (SGPT), serum 48 U/L 12-78 aspartate aminotransferase (SGOT), serum 17 U/L 15-37 calcium, serum 9.1 mg/dL 8.5-10.1 bilirubin, serum, total 0.40 mg/dL 0.00-1.00 sodium, serum 142 mmol/L 245-889 4462/06/08 carbon dioxide, venous blood 27.6 mmol/L 21.0-32.0 [...] mg/dL Encounters Code Encounter Date Provider Facility CPT-71687 Level 3 Est. Patient 10:40:11 GEOSPATIAL SYSTEMS INTEGRATOR Ahmet Carbajal MD [facility] CPT-54740 Level 3 Est. Patient 15:07:06 GEOSPATIAL SYSTEMS INTEGRATOR Neeraj Collins MD [facility] CPT-74534 Level 4 Est. Patient 14:45:00 GEOSPATIAL SYSTEMS INTEGRATOR Ahmet Carbajal MD [facility] CPT-69971 Level 3 Est. Patient 13:59:[address] [facility] [place] CPT-87851 Level 3 Est. Patient 18:18:53 CDT Neeraj Collins MD [facility] CPT-69323 Level 3 Est. Patient 15:50:44 CDT Vishal Hui MD [facility] CPT-91697 Level 3 Est. Patient 11:36:17 CDT Ahmet Carbajal MD [facility] CPT-64412 Level 3 Est. Patient 13:29:16 CDT Vishal Hui MD [facility] CPT-67220 Level 3 Est. Patient 14:27:52 CDT Neeraj Collins MD [facility] CPT-39217 Level 3 Est. Patient 08:56:[address] [facility] [place] CPT-72735 Level 4 Est. Patient 12:11:[address] [facility] [place] CPT-26129 Level 3 New Patient 16:53:37 CDT Albert Caldera MD [facility] CPT-01082 Level 3 Est. Patient 11:25:49 CDT Renzo Thornton DO [facility] CPT-35392 Level 3 Est. Patient 15:22:01 CDT Ahmet Carbajal MD [facility] CPT-57296 Level 4 Est. Patient 09:00:51 GEOSPATIAL SYSTEMS INTEGRATOR Vishal Hui MD [facility] CPT-42718 Level 3 Est. Patient 11:37:33 GEOSPATIAL SYSTEMS INTEGRATOR Vishal Hui MD [facility] CPT-52471 Level 3 Est. Patient 08:41:09 GEOSPATIAL SYSTEMS INTEGRATOR Vishal Hui MD [facility] CPT-11342 Level 4 Est. Patient 10:19:35 GEOSPATIAL SYSTEMS INTEGRATOR Vishal Hui MD [facility] CPT-46351 Level 3 Est. Patient 13:35:45 CDT Vishal Hui MD [facility] CPT-64566 Level 4 Est. Patient 10:08:37 CDT Vishal Hui MD [facility]-21467 Level 3 Est. Patient 11:22:10 CDT Vishal Hui MD [facility] CPT-51403 Level 3 Est. Patient 11:03:32 CDT Sahara Rodriguez MD [facility]-33567 Level 3 Est. Patient 09:41:35 CDT Vishal Hui MD [facility] CPT-92000 Level 3 Est. Patient 12:00:41 CDT Neeraj Collins MD [facility]-71913 Level 3 Est. Patient 09:16:24 CDT Vishal Hui MD [facility] CPT-63650 Level 4 Est. Patient 13:59:09 CDT Neeraj Collins MD [facility] CPT-13929 Level 3 Est. Patient 15:19:43 CDT Renzo Thornton DO [facility] CPT-10300 Level 3 Est. Patient 18:10:26 CDT Sahara Rodriguez MD [facility]-[id number] Level 3 Est. Patient 14:49:50 CDT Vishal Hui MD [facility] CPT-89785 Level 4 Est. Patient 18:41:46 CDT Neeraj Collins MD [facility] CPT-60913 Level 4 Est. Patient 09:18:38 GEOSPATIAL SYSTEMS INTEGRATOR Vishal Hui MD [facility]-63238 Level 3 Est. Patient 14:43:55 GEOSPATIAL SYSTEMS INTEGRATOR Vishal Hui MD [facility] CPT-23149 Level 3 Est. Patient 15:26:33 GEOSPATIAL SYSTEMS INTEGRATOR Sahara Rodriguez MD [facility]-[id number] Level 3 Est. Patient 10:32:14 GEOSPATIAL SYSTEMS INTEGRATOR Vishal Hui MD [facility] CPT-09615 Level 3 Est. Patient 15:12:52 GEOSPATIAL SYSTEMS INTEGRATOR Vishal Hui MD [facility] CPT-22203 Level 4 Est. Patient 09:19:27 CDT Vishal Hui MD [facility] CPT-63061 Level 3 Est. Patient 15:53:00 CDT Renzo Thornton [facility] CPT-74688 Level 3 Est. Patient 15:50:30 CDT Renzo Thornton [facility] CPT-40363 Level 3 Est. Patient 16:55:24 CDT Vishal Hui MD [facility] Procedures Code Procedure Name Date Entry Date Standard Description CPT-23979 Abx/Therapy Injection 17:34:30 GEOSPATIAL SYSTEMS INTEGRATOR CPT-28668 Nexplanon Removal with Reinsertion 14:09:32 CDT CPT-J7307 Nexplanon (Implant) 14:09:32 CDT CPT-OV Office Visit 14:09:32 CDT CPT-84966 UA w micro - LAB USE ONLY 16:21:13 CDT CPT-73869 Wet Mount - LAB USE ONLY 16:21:13 CDT CPT-80663 First Vx - Ix admin for Medicare patients 14:37:47 CDT CPT-69240 Fluzone Preservative Free Intramuscular Suspension 14:37 :47 CDT CPT-68523 Abx/Therapy Injection 13:54:22 CDT CPT-42766 Abx/Therapy Injection 08:47:09 CDT CPT-04880 Abx/Therapy Injection 13:29:56 CDT CPT-24214 Abx/Therapy Injection 08:36:16 CDT CPT-93307 Wet Mount - LAB USE ONLY 17:44:58 CDT CPT-20021 UA w micro - LAB USE ONLY 17:44:58 CDT CPT-20404 CMP - LAB USE ONLY 17:44:58 CDT CPT-71015 Venipuncture Draw Fee 17:44:58 CDT CPT-91751 Cervical Min 4V - XRAY USE ONLY 09:01:40 CDT CPT-01673 Chest 2V Frontal and Lat - XRAY USE ONLY 11:06:31 CDT CPT-78387 EKG Trac and Interp - XRAY USE ONLY 11:31:43 CDT 08/26 CPT-J3420 Vitamin B12 1000mcg (Cyanocobalamin) 08:10:26 GEOSPATIAL SYSTEMS INTEGRATOR 04/12 CPT-16295 Abx/Therapy Injection 08:10:26 GEOSPATIAL SYSTEMS INTEGRATOR CPT-G0438 Initial Annual Wellness Exam 19:01:01 GEOSPATIAL SYSTEMS INTEGRATOR CPT-J3420 Vitamin B12 1000mcg (Cyanocobalamin) 16:57:46 CDT 08/14 CPT-51531 Recombivax HB Injection Suspension 5 MCG/0.5ML 08:37:50 GEOSPATIAL SYSTEMS INTEGRATOR CPT-61143 Immunization Single Admin 08:37:50 GEOSPATIAL SYSTEMS INTEGRATOR CPT-J3420 Vitamin B12 1000mcg (Cyanocobalamin) 08:32:16 GEOSPATIAL SYSTEMS INTEGRATOR 03/11 CPT-70619 Abx/Therapy Injection 08:32:16 GEOSPATIAL SYSTEMS INTEGRATOR CPT-61874 Chest 2V Frontal and Lat 11:46:38 GEOSPATIAL SYSTEMS INTEGRATOR CPT-57510 Venipuncture Draw Fee 09:12:45 GEOSPATIAL SYSTEMS INTEGRATOR CPT-J3420 Vitamin B12 1000mcg (Cyanocobalamin) 08:50:15 GEOSPATIAL SYSTEMS INTEGRATOR 02/08 CPT-18036 Abx/Therapy Injection 08:50:15 GEOSPATIAL SYSTEMS INTEGRATOR CPT-Cryo Cryotherapy 10:19:35 GEOSPATIAL SYSTEMS INTEGRATOR CPT-000 Give Appropriate Flu Vaccine 09:22:16 CDT CPT-J3420 Vitamin B12 1000mcg (Cyanocobalamin) 19:08:57 CDT 01/11 CPT-98370 Abx/Therapy Injection 19:08:57 CDT CPT-J3420 Vitamin B12 1000mcg (Cyanocobalamin) 08:19:08 CDT 12/11 CPT-69403 Abx/Therapy Injection 08:19:08 CDT CPT-J3420 Vitamin B12 1000mcg (Cyanocobalamin) 14:48:00 CDT 11/09 CPT-58398 Abx/Therapy Injection 14:47:59 CDT CPT-J3420 Vitamin B12 1000mcg (Cyanocobalamin) 08:34:04 CDT 10/09 CPT-43900 Abx/Therapy Injection 08:34:04 CDT CPT-J3420 Vitamin B12 1000mcg (Cyanocobalamin) 09:18:52 CDT 09/11 CPT-18064 Abx/Therapy Injection 09:18:52 CDT CPT-J3420 Vitamin B12 1000mcg (Cyanocobalamin) 08:35:44 CDT 09/04 CPT-75952 Abx/Therapy Injection 08:35:44 CDT CPT-96875 Immunization Single Admin 11:07:16 CDT CPT-68138 Hepatitis B adult IM 11:07:16 CDT CPT-J3420 Vitamin B12 1000mcg (Cyanocobalamin) 11:00:49 CDT 08/28 CPT-J1040 Depo Medrol 80 mg (Methyl Prednisolone Acetate) 11:00: 49 CDT CPT-28301 Abx/Therapy Injection 11:00:49 CDT CPT-J1040 Depo Medrol 80 mg (Methyl Prednisolone Acetate) 09:16: 23 CDT CPT-J3420 Vitamin B12 1000mcg (Cyanocobalamin) 08:27:05 CDT 08/20 CPT-53595 Abx/Therapy Injection 08:27:05 CDT CPT-12626 Recombivax HB Injection Suspension 5 MCG/0.5ML 10:00:41 CDT CPT-90575 Administration single or combination vaccine inc oral 10 :00:41 CDT CPT-78512 Sono transvag pelvis non OB uterus ovaries cervix 16:36: 57 CDT CPT-97614 LS spine comp w obliq 09:50:55 GEOSPATIAL SYSTEMS INTEGRATOR CPT-10943 Abd compl w upright 09:50:55 GEOSPATIAL SYSTEMS INTEGRATOR CPT-J1100 Decadron 4mg (Dexamethasone) 15:51:24 GEOSPATIAL SYSTEMS INTEGRATOR CPT-J1030 Depo Medrol 40 mg (Methyl Prednisolone Acetate) 15:51: 24 GEOSPATIAL SYSTEMS INTEGRATOR CPT-27415 Abx/Therapy Injection 15:51:24 GEOSPATIAL SYSTEMS INTEGRATOR CPT-J1100 Decadron 4mg (Dexamethasone) 15:26:33 GEOSPATIAL SYSTEMS INTEGRATOR CPT-J1030 Depo Medrol 40 mg (Methyl Prednisolone Acetate) 15:26: 33 GEOSPATIAL SYSTEMS INTEGRATOR CPT-72313 Sono retroperitoneal complete kidneys and bladder 17:15: 30 CDT CPT-31531 Abd compl w upright 16:09:25 CDT CPT-J1100 Decadron 8mg (Dexamethasone) 17:07:57 CDT CPT-84982 Abx/Therapy Injection 17:07:57 CDT CPT-J1100 Decadron 8mg (Dexamethasone) 16:55:24 CDT CPT-07426 Chest 2V Frontal and Lat 16:32:44 CDT
--- OUTSIDE RECORDS SUMMARY | 2016-11-04 23:01 | XMS REPORT | Clinical Summary ---
Author Author Admin, FLOR Organization [employer] Address Unknown Phone Unavailable Allergies, Adverse Reactions, [...] sites Morbid obesity 278.01 Active Juliet Kimbrough COLD TYPE ARTIST Morbid obesity 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 Active Juliet Kmibrough APRN Dependence on other enabling machines and [...] breath Nocturnal hypoxia 799.02 Active Fabiola Johnson COLD TYPE ARTIST Hypoxemia Neck pain 723.1 Resolved Vishal [...] fibula Vaginal discharge 623.5 Active Luigi Martínez COLD TYPE ARTIST Leukorrhea, not specified as infective DYSURIA 788.1 [...] Active Ahmet Carbajal MD Generalized anxiety disorder Ophthalmic Asst well woman exam V72.31 Active Suzan Boo COLD TYPE ARTIST Routine gynecological examination Bronchitis, acute with mild bronchospasm 466.0 Active Suzan Boo COLD TYPE ARTIST Acute bronchitis Fibrocystic breast changes 610.1 Active Suzan Boo APRN Diffuse cystic 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 Suzan Boo APRN Other specified conditions influencing health status Anxiety Disorder ICD-300.00 Inactive Vishla Hui MD Pneumonia, organism unspecified ICD-486 Inactive [...] SOLN 1 drop PRN eye spasms TROPICAMIDE 47486346986 Active Samantha Stephan RMA Active RISPERDAL 4 MG ORAL TABS 1 tab at bedtime RISPERIDONE 18694037340 Active Samantha Stephan RMA Active LEVAQUIN 500 MG TABS 1 daily for infection LEVOFLOXACIN 58027146069 Active Suzan Boo APRN Active TESSALON PERLES 100 MG CAPS 1 three times a day as needed for cough BENZONATATE 21377077746 Active Suzan Boo APRN Active ZOFRAN 4 MG TABS 1 po q6hr PRN Nausea ONDANSETRON HCL No Longer Active Suzan Boo APRN Active FLUTICASONE PROPIONATE 50 MCG/ACT SUSP 2 sprays each nostril daily before bed. FLUTICASONE PROPIONATE 55840516797 No Longer Active Suzan Boo APRN Active ASPIRIN 325 MG ORAL TABS 1 tab q.d ASPIRIN 18446027230 No Longer Active Suzan Boo APRN Active HALOPERIDOL 10 MG ORAL TABS 1 tab q.d HALOPERIDOL 03478685230 No Longer Active Suzan Boo APRN Active GUAIFENESIN-CODEINE 100-10 MG/5ML SYRP 5ml every 4 to 6 hours as needed for cough GUAIFENESIN-CODEINE 17246222524 No Longer Active Suzan Boo APRN Active ZITHROMAX Z-EARNEST 250 MG TABS 2 today and then 1 daily for 4 days AZITHROMYCIN 13781036517 No Longer Active Suzan Boo APRN Active PREDNISONE 10 MG TABS 2 daily for 5 days then 1 daily for 5 days PREDNISONE 27112412882 Active Suzan Boo APRN Active CLONAZEPAM 1 MG ORAL TABS 1 twice a day and an additional 1 tablet every other day as needed for pseudoseizures or anxiety CLONAZEPAM 84274298869 Active Ahmet Carbajal MD Active HYDROCODONE-ACETAMINOPHEN 5-325 MG ORAL TABS 1 tab two times a day HYDROCODONE-ACETAMINOPHEN 40285286455 No Longer Active Ahmet Carbajal MD Active LAMICTAL 100 MG ORAL TABS 1 tab 2 times qd. LAMOTRIGINE 14408043080 Active Ahmet Carbajal MD Active PREDNISONE 20 MG TABS 2 daily for 5 days then 1 daily for 5 days PREDNISONE 90279720796 No Longer Active Ahmet Carbajal MD Active FLUTICASONE PROPIONATE 50 MCG/ACT SUSP 1 to 2 sprays each nostril daily for allergies FLUTICASONE PROPIONATE 48022534919 Active Tila Valenzuela Active BENADRYL 25 MG CAP 4 po at bedtime for insomnia DIPHENHYDRAMINE HCL 20877297513 No Longer Active Ahmet Carbajal MD Active ADVAIR DISKUS 250-50 MCG/DOSE INH AEPB 1 puff twice a day for asthma FLUTICASONE-SALMETEROL 65066587675 No Longer Active Ahmet Carbajal MD Active KLONOPIN 1 MG ORAL TABS 1 tab po TID CLONAZEPAM 65674110405 No Longer Active Ahmet Carbajal MD Active ABILIFY MAINTENA 400 MG IM SUSR 400mg injection every 26 days ARIPIPRAZOLE 73390200188 No Longer Active Ahmet Carbajal MD Active TRAMADOL HCL 50 MG TABS 1/2-1 tab TID PRN TRAMADOL HCL 84554688073 No Longer Active Ahmet Carbajal MD Active BACTRIM DS 800-160 MG TABS 1 twice a day SULFAMETHOXAZOLE- TRIMETHOPRIM 53660465023 No Longer Active Ahmet Carbajal MD Active PROAIR HFA 108 (90 BASE) MCG/ACT AERS 2 puffs four times a day as needed 2015 ALBUTEROL SULFATE 21776885701 Active Ahmet Carbajal MD Active EQ NICOTINE 21 MG/24HR TRANS PT24 Apply daily to stop smoking NICOTINE 46630848233 Active Ahmet Carbajal MD Active MONISTAT 7 COMBO PACK WOODROW 100 & 2 MG-% (9GM) VAG KIT 1 applicatorful per vagina q pm x 7 MICONAZOLE NITRATE 45056128271 No Longer Active Ahmet Carbajal MD Active FLAGYL 500 MG TAB 1 tablet by mouth bid METRONIDAZOLE 57196217808 No Longer Active Ahmet Carbajal MD Active OXYCODONE HCL ER 10 MG ORAL T12A 1/2 tab by mouth every 4 hours prn OXYCODONE HCL 98942994474 No Longer Active Ahmet Carbajal MD Active METHYLPREDNISOLONE 4 MG ORAL TABS po daily METHYLPREDNISOLONE 49557988941 No Longer Active Ahmet Carbajal MD Active LEVOFLOXACIN 500 MG ORAL TABS po daily LEVOFLOXACIN 74676910896 No Longer Active Ahmet Carbajal MD Active VIIBRYD 10 MG ORAL TABS Take 1 tablet once a day VILAZODONE HCL 49726783578 No Longer Active Ahmet Carbajal MD Active TOPAMAX 50 MG ORAL TABS 1 tab twice daily TOPIRAMATE 32509166292 No Longer Active Ahmet Carbajal MD Active DICLOFENAC SODIUM 50 MG TBEC 1 tablet by mouth four times daily PRN Pain 2015 DICLOFENAC SODIUM 08727417325 No Longer Active Ahmet Carbajal MD Active ADZENYS XR-ODT 6.3 MG ORAL TBED 1 tab po daily for ADHD AMPHETAMINE 66610852629 No Longer Active Ahmet Carbajal MD Active CHANTIX 1 MG TABS 1 twice a day to help quit smoking VARENICLINE TARTRATE 82402112361 No Longer Active Dipika Burgos MD Active CHANTIX STARTING MONTH EARNEST 0.5 MG X 11 & 1 MG X 42 TABS take as directed 2015 VARENICLINE TARTRATE 19999130332 No Longer Active Dipika Burgos MD Active TESSALON PERLES 100 MG CAP 1 to 2 tablets by mouth 3 times daily as needed for cough BENZONATATE 37857658067 No Longer Active Luigi Martínez APRN Active IMITREX 50 MG ORAL TABS 0.5 po x 1 PRN Headache. May repeat dose x 1 in 2 hours if needed SUMATRIPTAN SUCCINATE 50358546849 Active Ahmet Carbajal MD Active HYDROCODONE-ACETAMINOPHEN 5-325 MG TABS 1 to 2 four times a day as needed for pain use until can be seen by specialist HYDROCODONE- ACETAMINOPHEN 06123308153 No Longer Active Vishal Hui MD Active PROAIR HFA 108 (90 BASE) MCG/ACT AERS 2 puffs four times a day as needed 2015 ALBUTEROL SULFATE 47879265472 No Longer Active Vishal Hui MD Active PREDNISONE 20 MG TABS 2 daily for 5 days then 1 daily for 5 days PREDNISONE 65526964264 No Longer Active Vishal Hui MD Active ZITHROMAX Z-EARNEST 250 MG TABS 2 today and then 1 daily for 4 days AZITHROMYCIN 41252296301 No Longer Active Vishal Hui MD Active DICLOFENAC POTASSIUM TABS Take 1 tablet twice a day (pt. is not sure of the dose.) DICLOFENAC POTASSIUM TABS 66234721188 No Longer Active Vishal Hui MD Active VERAPAMIL HCL ER 120 MG ORAL CR-TABS Take 1 tablet by mouth twice a day. VERAPAMIL HCL 15372191864 Active Vishal Hui MD Active FLAGYL 500 MG TAB 1 tablet by mouth bid METRONIDAZOLE 35069193855 No Longer Active Vishal Hui MD Active VALIUM 5 MG TAB Take 1-2 tablets daily DIAZEPAM 53743971023 No Longer Active Fabiola Johnson APRN Active METOPROLOL TARTRATE 25 MG ORAL TABS 1/2 tablet twice daily for heart rate and blood pressure METOPROLOL TARTRATE 87321176203 No Longer Active Fabiola Johnson APRN Active MIRALAX ORAL POWD 17GMS DAILY IN WATER POLYETHYLENE GLYCOL 3350 59932005850 Active TAMARA Casey Active MIRALAX PACK 1 po qd PRN Constipation POLYETHYLENE GLYCOL 3350 20832121614 No Longer Active Ahmet Carbajal MD Active MINIPRESS 2 MG CAPS 4 cap po at night PRAZOSIN HCL 02763071484 No Longer Active Ahmet Carbajal MD Active PIROXICAM 20 MG CAPS 1 cap po qd PRN Pain PIROXICAM 02298575643 No Longer Active Ahmet Carbajal MD Active TRAMADOL HCL 50 MG TABS 1-2 po TID PRN Pain TRAMADOL HCL 52783389116 No Longer Active Ahmet Carbajal MD Active METOPROLOL TARTRATE 50 MG TAB 1 po bid METOPROLOL TARTRATE 55167379577 No Longer Active Ahmet Carbajal MD Active ABILIFY 15 MG ORAL TABS 1 tab daily ARIPIPRAZOLE 71011916005 No Longer Active Ahmet Carbajal MD Active PROZAC 20 MG ORAL CAPS 1 tab daily FLUOXETINE HCL 82998921513 No Longer Active Ahmet Carbajal MD Active AMBIEN 5 MG ORAL TABS 1 tab at bedtime ZOLPIDEM TARTRATE 39085728261 No Longer Active Ahmet Carbajal MD Active PREDNISONE 20 MG TAB 2 tabs daily for 4 days, 1 tab daily for 4 days, 1/2 tab daily for 4 days PREDNISONE 82956795428 No Longer Active Ahmet Carbajal MD Active KEFLEX 500 MG CAP 1 po TID x 10 days CEPHALEXIN 59198560774 No Longer Active Vishal Hui MD Active SAPHRIS 5 MG SUBL 1 po bid ASENAPINE MALEATE 36519188549 No Longer Active Jillina Frazell COLD TYPE ARTIST Active LATUDA 80 MG TABS Take one by mouth daily LURASIDONE HCL 46830782152 No Longer Active Jillina Frazell COLD TYPE ARTIST Active AMLODIPINE BESYLATE 5 MG TABS 1 tablet by mouth daily AMLODIPINE BESYLATE 09103031752 No Longer Active Jillina Frazell COLD TYPE ARTIST Active AMITRIPTYLINE HCL 100 MG TAB one at hs AMITRIPTYLINE HCL 86007848898 No Longer Active Vishal Hui MD Active TRAZODONE HCL 100 MG TAB take 1 at bedtime TRAZODONE HCL 53768677987 No Longer Active Vishal Hui MD Active VYVANSE 40 MG CAPS 1 daily, LISDEXAMFETAMINE DIMESYLATE 70648433576 No Longer Active Vishal Hui MD Active IBUPROFEN 600 MG TAB 1 po TID PRN IBUPROFEN 42225388666 No Longer Active Vishal Hui MD Active PROZAC 20 MG CAP Take one by mouth daily FLUOXETINE HCL 99505848632 No Longer Active Vishal Hui MD Active BACTRIM DS 800-160 MG TABS 1 pill by mouth twice daily SULFAMETHOXAZOLE-TRIMETHOPRIM 53953733205 No Longer Active Sahara Rodriguez MD PhD Active DIFLUCAN 150 MG TAB 1 tablet by mouth daily FLUCONAZOLE 61265810564 No Longer Active Vishal Hui MD Active TIZANIDINE HCL 4 MG TABS 1 po q6hr PRN Muscle Spasm/Back Pain TIZANIDINE HCL 80280593470 Active Vishal Hui MD Active CLINDAMYCIN HCL 150 MG CAPS 1 four times a day CLINDAMYCIN HCL 28562944903 No Longer Active Neeraj Collins MD Active KEFLEX 500 MG ORAL CAPS 1 cap QID by mouth CEPHALEXIN 69412062018 No Longer Active Neeraj Collins MD Active DIFLUCAN 150 MG TABS 1 pill every other day x 2 doses FLUCONAZOLE 08518255854 No Longer Active Sahara Rodriguez MD PhD Active MELATONIN 3 MG CAPS 2 po q hs MELATONIN 56653276304 No Longer Active Sahara Rodriguez MD PhD Active MULTIVITAMINS CAPS Take one by mouth daily MULTIPLE VITAMIN 34677753008 No Longer Active Sahara Rodriguez MD PhD Active BACTRIM DS 800-160 MG TAB 1 tab by mouth twice daily TRIMETHOPRIM-SULFAMETHOXAZOLE 07320939128 No Longer Active Sahara Rodriguez MD PhD Active [facility] PROBIOTIC ORAL CHEW 2 daily po PROBIOTIC PRODUCT 89526995022 No Longer Active Sahara Rodriguez MD PhD Active BACTRIM DS 800-160 MG TABS 1 po BID x 7 days SULFAMETHOXAZOLE-TRIMETHOPRIM 94897672834 No Longer Active Vishal Hui MD Active CHANTIX STARTING MONTH EARNEST 0.5 MG X 11 & 1 MG X 42 TABS 0.5mg daily for 3 days , then 0.5mg BID for 4 days, then 1mg BID VARENICLINE TARTRATE 89244759021 No Longer Active TAMARA Gray Active VERAPAMIL HCL CR 120 MG TAB CR 1 po bid VERAPAMIL HCL 36232677502 No Longer Active Vishal Hui MD Active METOPROLOL SUCCINATE 50 MG TB24 1 tablet by mouth daily METOPROLOL SUCCINATE 52360906577 No Longer Active Vishal Hui MD Active SAPHRIS 10 MG SUBL 1 tab po bid ASENAPINE MALEATE 90774210198 No Longer Active Vishal Hui MD Active LISINOPRIL 20 MG TABS 1 tab po qd LISINOPRIL 16553050174 No Longer Active Vishal Hui MD Active LATUDA 20 MG TABS Take one by mouth daily LURASIDONE HCL 01924536085 No Longer Active Vishal Hui MD Active TRAZODONE HCL 50 MG TABS 1/2 tab po qd prn for anxiety TRAZODONE HCL 54970301967 No Longer Active Vishal Hui MD Active OMEPRAZOLE 20 MG TBEC 1 po q a.m. 30min prior to first food intake OMEPRAZOLE 61014190528 Active Vishal Hui MD Active RANITIDINE HCL 150 MG CAPS 1 twice a day RANITIDINE HCL 58039580043 Active Luigi Martínez APRN Active LINZESS 290 MCG CAPS Take one by mouth daily LINACLOTIDE 21743592531 No Longer Active Vishal Hui MD Active SAPHRIS 5 MG SUBL 1 tab po qd ASENAPINE MALEATE 82714754702 No Longer Active Vishal Hui MD Active ZALEPLON 10 MG CAPS 1 cap po every other night ZALEPLON 87017721295 No Longer Active Vishal Hui MD Active LYRICA 50 MG CAPS 1 tab po TID PREGABALIN 98456636139 No Longer Active Vishal Hui MD Active LORATADINE 10 MG TABS 1 tab po qd LORATADINE 47190730279 No Longer Active Vishal Hui MD Active VERAPAMIL HCL ER 180 MG CR-TABS 1 tab po bid VERAPAMIL HCL 52517966739 No Longer Active Vishal Hui MD Active MIRALAX POWD 1 capfull once daily POLYETHYLENE GLYCOL 3350 98813004709 No Longer Active Vishal Hui MD Active PREDNISONE 20 MG TABS 1 tab po qd PREDNISONE 13173402560 No Longer Active Renzo Thornton DO Active LEVOFLOXACIN 500 MG TABS 1 tab po qd LEVOFLOXACIN 21855731635 No Longer Active Renzo Thornton DO Active BUSPIRONE HCL 15 MG TABS 1 tab po TID BUSPIRONE HCL 85765726928 No Longer Active Renzo Thornton DO Active BENZTROPINE MESYLATE 1 MG TABS 1 tab po qd BENZTROPINE MESYLATE 11665266616 No Longer Active Renzo Thornton DO Active ATENOLOL 25 MG TABS 1 tab po qd ATENOLOL 25907015436 No Longer Active Renzo Thornton DO Active ESCITALOPRAM OXALATE 20 MG TABS 1 tab po qd ESCITALOPRAM OXALATE 35007859906 No Longer Active Renzo Thornton DO Active ADVAIR DISKUS 250-50 MCG/DOSE AEPB 1 puff BID FLUTICASONE-SALMETEROL 25875715802 No Longer Active Renzo Thornton DO Active PREDNISONE 20 MG TAB 2 tabs daily for 3 days, 1 tab daily for 3 days, 1/2 tab daily for 2 days PREDNISONE 87413414495 No Longer Active Vishal Hui MD Active CEFDINIR 300 MG CAPS by mouth twice a day CEFDINIR 68561621937 No Longer Active Vishal Hui MD Active LANSOPRAZOLE 30 MG CPDR 1 cap po qd LANSOPRAZOLE 13884309707 No Longer Active Vishal Hiu MD Active BACLOFEN 20 MG TABS 1 tab po tid BACLOFEN 75037949035 No Longer Active Vishal Hui MD Active ADVAIR DISKUS 250-50 MCG/DOSE AEPB 1 puff BID ADVAIR DISKUS 250-50 MCG/DOSE AEPB FLUTICASONE-SALMETEROL Inactive ESCITALOPRAM OXALATE 20 MG TABS 1 tab po qd ESCITALOPRAM OXALATE 20 MG TABS 898866 ESCITALOPRAM OXALATE Inactive ATENOLOL 25 MG TABS 1 tab po qd ATENOLOL 25 MG TABS 492792 ATENOLOL Inactive BENZTROPINE MESYLATE 1 MG TABS 1 tab po qd BENZTROPINE MESYLATE 1 MG TABS 433840 BENZTROPINE MESYLATE Inactive BUSPIRONE HCL 15 MG TABS 1 tab po TID BUSPIRONE HCL 15 MG TABS 075906 BUSPIRONE HCL Inactive LEVOFLOXACIN 500 MG TABS 1 tab po qd LEVOFLOXACIN 500 MG TABS 500324 LEVOFLOXACIN Inactive PREDNISONE 20 MG TABS 1 tab po qd PREDNISONE 20 MG TABS 218287 PREDNISONE Inactive MIRALAX POWD 1 capfull once daily MIRALAX POWD 534945 POLYETHYLENE GLYCOL 3350 Inactive VERAPAMIL HCL ER 180 MG CR-TABS 1 tab po bid VERAPAMIL HCL ER 180 MG CR-TABS VERAPAMIL HCL Inactive LORATADINE 10 MG TABS 1 tab po qd LORATADINE 10 MG TABS 232203 LORATADINE Inactive LYRICA 50 MG CAPS 1 tab po TID LYRICA 50 MG CAPS PREGABALIN Inactive ZALEPLON 10 MG CAPS 1 cap po every other night ZALEPLON 10 MG CAPS 192241 ZALEPLON Inactive SAPHRIS 5 MG SUBL 1 tab po qd SAPHRIS 5 MG SUBL ASENAPINE MALEATE Inactive TRAZODONE HCL 50 MG TABS 1/2 tab po qd prn for anxiety TRAZODONE HCL 50 MG TABS 356761 TRAZODONE HCL Inactive LATUDA 20 MG TABS Take one by mouth daily LATUDA 20 MG TABS LURASIDONE HCL Inactive LISINOPRIL 20 MG TABS 1 tab po qd LISINOPRIL 20 MG TABS 175470 LISINOPRIL Inactive SAPHRIS 10 MG SUBL 1 [...] twice daily BACTRIM DS 800-160 MG TAB 709818 TRIMETHOPRIM-SULFAMETHOXAZOLE Inactive MULTIVITAMINS CAPS Take one by mouth daily MULTIVITAMINS CAPS MULTIPLE VITAMIN Inactive MELATONIN 3 MG CAPS 2 po q hs MELATONIN 3 MG CAPS 367012 MELATONIN Inactive KEFLEX 500 MG ORAL CAPS 1 cap QID by mouth KEFLEX 500 MG ORAL CAPS 895148 CEPHALEXIN Inactive CLINDAMYCIN HCL 150 MG CAPS 1 four times a day CLINDAMYCIN HCL 150 MG CAPS 519211 CLINDAMYCIN HCL Inactive DIFLUCAN 150 MG TAB 1 tablet by mouth daily DIFLUCAN 150 MG TAB 371580 FLUCONAZOLE Inactive PROZAC 20 MG CAP Take one by mouth daily PROZAC 20 MG CAP 121983 FLUOXETINE HCL Inactive IBUPROFEN 600 MG TAB 1 po TID PRN IBUPROFEN 600 MG TAB 940178 IBUPROFEN Inactive VYVANSE 40 MG CAPS 1 daily, VYVANSE 40 MG CAPS LISDEXAMFETAMINE DIMESYLATE Inactive TRAZODONE HCL 100 MG TAB take 1 at bedtime TRAZODONE HCL 100 MG TAB 274408 TRAZODONE HCL Inactive AMITRIPTYLINE HCL 100 MG TAB one at hs AMITRIPTYLINE HCL 100 MG TAB 309292 AMITRIPTYLINE HCL Inactive AMLODIPINE BESYLATE 5 MG TABS 1 tablet by mouth daily AMLODIPINE BESYLATE 5 MG TABS 739965 AMLODIPINE BESYLATE Inactive LATUDA 80 MG TABS Take one by mouth daily LATUDA 80 MG TABS LURASIDONE HCL Inactive SAPHRIS 5 MG SUBL 1 po bid SAPHRIS 5 MG SUBL ASENAPINE MALEATE Inactive PREDNISONE 20 MG TAB 2 tabs daily for 4 days, 1 tab daily for 4 days, 1/2 tab daily for 4 days PREDNISONE 20 MG TAB 324671 PREDNISONE Inactive AMBIEN 5 MG ORAL TABS 1 tab at bedtime AMBIEN 5 MG ORAL TABS 803975 ZOLPIDEM TARTRATE Inactive PROZAC 20 MG ORAL CAPS 1 tab daily PROZAC 20 MG ORAL CAPS 751716 FLUOXETINE HCL Inactive ABILIFY 15 MG ORAL TABS 1 tab daily ABILIFY 15 MG ORAL TABS 369770 ARIPIPRAZOLE Inactive METOPROLOL TARTRATE 50 MG TAB 1 po bid METOPROLOL TARTRATE 50 MG TAB 493394 METOPROLOL TARTRATE Inactive TRAMADOL HCL 50 MG TABS 1-2 po TID PRN Pain TRAMADOL HCL 50 MG TABS 779734 TRAMADOL HCL Inactive PIROXICAM 20 MG CAPS 1 cap po qd PRN Pain PIROXICAM 20 MG CAPS 944174 PIROXICAM Inactive MINIPRESS 2 MG CAPS 4 cap po at night MINIPRESS 2 MG CAPS 194682 PRAZOSIN HCL Inactive MIRALAX PACK 1 po qd PRN Constipation MIRALAX PACK 227924 POLYETHYLENE GLYCOL 3350 Inactive METOPROLOL TARTRATE 25 MG ORAL TABS 1/2 tablet twice daily for heart rate and blood pressure METOPROLOL TARTRATE 25 MG ORAL TABS 396542 METOPROLOL TARTRATE Inactive VALIUM 5 MG TAB Take 1-2 tablets daily VALIUM 5 MG TAB 825752 DIAZEPAM Inactive FLAGYL 500 MG TAB 1 tablet by mouth bid FLAGYL 500 MG TAB 485877 METRONIDAZOLE Inactive DICLOFENAC POTASSIUM TABS Take 1 tablet twice a day (pt. is not sure of the dose.) DICLOFENAC POTASSIUM TABS DICLOFENAC POTASSIUM TABS Inactive ZITHROMAX Z-EARNEST 250 MG TABS 2 today and then 1 daily for 4 days ZITHROMAX Z-EARNEST 250 MG TABS 8891526 AZITHROMYCIN Inactive PREDNISONE 20 MG TABS 2 daily for 5 days then 1 daily for 5 days PREDNISONE 20 MG TABS 515950 PREDNISONE Inactive PROAIR HFA 108 (90 BASE) MCG/ACT AERS 2 puffs four times a day as needed 2015 PROAIR HFA 108 (90 BASE) MCG/ACT AERS ALBUTEROL SULFATE Inactive HYDROCODONE-ACETAMINOPHEN 5-325 MG TABS 1 to 2 four times a day as needed for pain use until can be seen by specialist HYDROCODONE- ACETAMINOPHEN 5-325 MG TABS 994238 HYDROCODONE-ACETAMINOPHEN Inactive TESSALON PERLES 100 MG CAP 1 to 2 tablets by mouth 3 times daily as needed for cough TESSALON PERLES 100 MG CAP 962835 BENZONATATE Inactive CHANTIX STARTING MONTH EARNEST 0.5 [...] Pain 2015 DICLOFENAC SODIUM 50 MG TBEC 476084 DICLOFENAC SODIUM Inactive TOPAMAX 50 MG ORAL TABS 1 tab twice daily TOPAMAX 50 MG ORAL TABS 489699 TOPIRAMATE Inactive VIIBRYD 10 MG ORAL TABS Take 1 tablet once a day VIIBRYD 10 MG ORAL TABS VILAZODONE HCL Inactive LEVOFLOXACIN 500 MG ORAL TABS po daily LEVOFLOXACIN 500 MG ORAL TABS 709688 LEVOFLOXACIN Inactive METHYLPREDNISOLONE 4 MG ORAL TABS po daily METHYLPREDNISOLONE 4 MG ORAL TABS 927426 METHYLPREDNISOLONE Inactive OXYCODONE HCL ER 10 MG ORAL T12A 1/2 tab by mouth every 4 hours prn OXYCODONE HCL ER 10 MG ORAL T12A OXYCODONE HCL Inactive FLAGYL 500 MG TAB 1 tablet by mouth bid FLAGYL 500 MG TAB 923138 METRONIDAZOLE Inactive MONISTAT 7 COMBO PACK WOODROW 100 & 2 MG-% (9GM) VAG KIT 1 applicatorful per vagina q pm x 7 MONISTAT 7 COMBO PACK WOODROW 100 & 2 MG-% (9GM) VAG KIT MICONAZOLE NITRATE Inactive BACTRIM DS 800-160 MG TABS 1 twice a day BACTRIM DS 800-160 MG TABS 491581 SULFAMETHOXAZOLE-TRIMETHOPRIM Inactive TRAMADOL HCL 50 MG TABS 1/2-1 tab TID PRN TRAMADOL HCL 50 MG TABS 569537 TRAMADOL HCL Inactive ABILIFY MAINTENA 400 MG IM SUSR 400mg injection every 26 days ABILIFY MAINTENA 400 MG IM SUSR ARIPIPRAZOLE Inactive KLONOPIN 1 MG ORAL TABS 1 tab po TID KLONOPIN 1 MG ORAL TABS 536447 CLONAZEPAM Inactive ADVAIR DISKUS 250-50 MCG/DOSE INH AEPB 1 puff twice a day for asthma ADVAIR DISKUS 250-50 MCG/DOSE INH AEPB FLUTICASONE- SALMETEROL Inactive BENADRYL 25 MG CAP 4 po at bedtime for insomnia BENADRYL 25 MG CAP DIPHENHYDRAMINE HCL Inactive PREDNISONE 20 MG TABS 2 daily for 5 days then 1 daily for 5 days PREDNISONE 20 MG TABS 208952 PREDNISONE Inactive HYDROCODONE-ACETAMINOPHEN 5-325 MG ORAL TABS 1 tab two times a day HYDROCODONE-ACETAMINOPHEN 5-325 MG ORAL TABS 366934 HYDROCODONE-ACETAMINOPHEN Inactive ZITHROMAX Z-EARNEST 250 MG TABS 2 today and then 1 daily for 4 days ZITHROMAX Z-EARNEST 250 MG TABS 6103201 AZITHROMYCIN Inactive GUAIFENESIN-CODEINE 100-10 MG/5ML SYRP 5ml every 4 to 6 hours as needed for cough GUAIFENESIN-CODEINE 100-10 MG/5ML SYRP 844229 GUAIFENESIN-CODEINE Inactive HALOPERIDOL 10 MG ORAL TABS 1 tab q.d HALOPERIDOL 10 MG ORAL TABS 660060 HALOPERIDOL Inactive ASPIRIN 325 MG ORAL TABS 1 tab q.d ASPIRIN 325 MG ORAL TABS 964691 ASPIRIN Inactive FLUTICASONE PROPIONATE 50 MCG/ACT SUSP 2 sprays each nostril daily before bed. FLUTICASONE PROPIONATE 50 MCG/ACT SUSP 4867104 FLUTICASONE PROPIONATE Inactive ZOFRAN 4 MG TABS 1 po q6hr PRN Nausea ZOFRAN 4 MG TABS 493515 ONDANSETRON HCL Inactive CEFDINIR 300 MG CAPS by mouth twice a day CEFDINIR 300 MG CAPS 691361 CEFDINIR Inactive PREDNISONE 20 MG TAB 2 tabs daily for 3 days, 1 tab daily for 3 days, 1/2 tab daily for 2 days PREDNISONE 20 MG TAB 764137 PREDNISONE Inactive BACTRIM DS 800-160 MG TABS 1 po BID x 7 days BACTRIM DS 800-160 MG TABS 19820521 SULFAMETHOXAZOLE-TRIMETHOPRIM Inactive DIFLUCAN 150 MG TABS 1 pill every other day x 2 doses DIFLUCAN 150 MG TABS 765644 FLUCONAZOLE Inactive BACTRIM DS 800-160 MG TABS 1 pill by mouth twice daily BACTRIM DS 800-160 MG TABS 19820521 SULFAMETHOXAZOLE-TRIMETHOPRIM Inactive KEFLEX 500 MG CAP 1 po TID x 10 days KEFLEX 500 MG CAP 490092 CEPHALEXIN Inactive Advance Directives Directive Description Start [...] % 11.0-15.0 platelet count 443 THOUSAND/UL 10*3/mm3 159-805 5436/03/01 mean platelet volume 8.2 fL 7.5-12.5 Lab [...] 369 10^3/MM^3 10*3/mm3 142-424 Lab Report: Chlamydia/GC APTIMA/[id number] - Lab chlamydia DNA probe NOT DETECTED NOT DETECTED Lab Report: Chlamydia/GC APTIMA/14620 - Microbiology Neisseria gonorrhoeae DNA probe NOT DETECTED NOT DETECTED Lab Report: Chlamydia/GC APTIMA/64421, Urinalysis, Complete, with Reflex ... - Lab chlamydia DNA probe NOT DETECTED NOT DETECTED Lab Report: Chlamydia/GC APTIMA/33513, Urinalysis, Complete, with Reflex ... - Microbiology Neisseria gonorrhoeae DNA probe NOT DETECTED NOT DETECTED Lab Report: Chlamydia/GC APTIMA/86019, Urinalysis, Complete, with Reflex ... - Urinalysis microalbumin/total urine volume 2 mg/L Units converted. See lab report for original value. microalbumin/creatinine ratio, urine 9 MCG/MG CREAT mg/L <30 Lab Report: Comp. Metabolic Panel - Chemistry sodium, serum 142 mmol/L 348-421 6689/06/08 carbon dioxide, venous blood 27.6 mmol/L 21.0-32.0 potassium, serum 4.0 mmol/L 3.5-5.2 chloride, serum 105 mmol/L 98-107 blood glucose 95 mg/dL 65-110 urea nitrogen, blood 8 mg/dL 7-18 creatinine, serum 0.75 mg/dL 0.55-1.30 alanine aminotransferase (SGPT), serum 49 U/L 12-78 aspartate aminotransferase (SGOT), serum 28 U/L 15-37 calcium, serum 9.4 mg/dL 8.5-10.1 bilirubin, serum, total 0.30 mg/dL 0.00-1.00 sodium, serum 140 mmol/L 356-836 2708/08/08 carbon dioxide, venous blood 33.7 mmol/L 21.0-32.0 [...] mg/dL Encounters Code Encounter Date Provider Facility CPT-27764 Level 3 Est. Patient 15:28:23 SECURITIES ADVISER Suzan Boo [facility] CPT-26506 Level 4 Est. Patient 10:20:54 SECURITIES ADVISER Suzan Boo [facility] [place] CPT-84862 Level 3 Est. Patient 11:47:37 SECURITIES ADVISER Ahmet Carbajal MD [facility] [place] CPT-94589 Level 3 Est. Patient 10:40:11 SECURITIES ADVISER Ahmet Carbajal MD [facility] [place] CPT-68173 Level 3 Est. Patient 15:07:06 SECURITIES ADVISER Neeraj Collins MD [facility] [place] CPT-52284 Level 4 Est. Patient 14:45:00 SECURITIES ADVISER Ahmet Carbajal MD [facility] [place] CPT-46966 Level 3 Est. Patient 13:59:59 CDT Luigi Martínez [facility] [place] CPT-41526 Level 3 Est. Patient 18:18:53 CDT Neeraj Collins MD [facility] CPT-13354 Level 3 Est. Patient 15:50:44 CDT Vishal Hui MD [facility] CPT-30076 Level 3 Est. Patient 11:36:17 CDT Ahmet Carbajal MD [facility] CPT-05777 Level 3 Est. Patient 13:29:16 CDT Vishal Hui MD [facility] CPT-28686 Level 3 Est. Patient 14:27:52 CDT Neeraj Collins MD [facility] CPT-64773 Level 3 Est. Patient 08:56:03 CDT Luigi Martínez [facility] CPT-23430 Level 4 Est. Patient 12:11:48 CDT Fabiola Johnson [facility] CPT-59995 Level 3 New Patient 16:53:37 CDT Albert Caldera MD [facility] CPT-57443 Level 3 Est. Patient 11:25:49 CDT Renzo Thornton DO [facility] CPT-29069 Level 3 Est. Patient 15:22:01 CDT Ahmet Carbajal MD [facility] CPT-88386 Level 4 Est. Patient 09:00:51 SECURITIES ADVISER Vishal Hui MD [facility] CPT-75117 Level 3 Est. Patient 11:37:33 SECURITIES ADVISER Vishal Hui MD [facility] CPT-62606 Level 3 Est. Patient 08:41:09 SECURITIES ADVISER Vishal Hui MD [facility] CPT-14386 Level 4 Est. Patient 10:19:35 SECURITIES ADVISER Vishal Hui MD [facility] CPT-66732 Level 3 Est. Patient 13:35:45 CDT Vishal Hui MD [facility] CPT-89586 Level 4 Est. Patient 10:08:37 CDT Vishal Hui MD [facility] CPT-17919 Level 3 Est. Patient 11:22:10 CDT Vishal Hui MD [facility] CPT-09588 Level 3 Est. Patient 11:03:32 CDT Sahara Rodriguez MD [facility] CPT-34467 Level 3 Est. Patient 09:41:35 CDT Vishal Hui MD [facility] CPT-22473 Level 3 Est. Patient 12:00:41 CDT Neeraj Collins MD [facility] CPT-11532 Level 3 Est. Patient 09:16:24 CDT Vishal Hui MD [facility] CPT-63264 Level 4 Est. Patient 13:59:09 CDT Neeraj Collins MD [facility] CPT-33584 Level 3 Est. Patient 15:19:43 CDT Renzo Thornton [facility] CPT-34664 Level 3 Est. Patient 18:10:26 CDT Sahara Rodriguez MD [facility]-89148 Level 3 Est. Patient 14:49:50 CDT Vishal Hui MD [facility]-57111 Level 4 Est. Patient 18:41:46 CDT Neeraj Collins MD [facility] CPT-10235 Level 4 Est. Patient 09:18:38 SECURITIES ADVISER Vishal Hui MD [facility] CPT-55756 Level 3 Est. Patient 14:43:55 SECURITIES ADVISER Vishal Hui MD [facility] CPT-93280 Level 3 Est. Patient 15:26:33 SECURITIES ADVISER Sahara Rodriguez MD [facility]-14455 Level 3 Est. Patient 10:32:14 SECURITIES ADVISER Vishal Hui MD [facility] CPT-46215 Level 3 Est. Patient 15:12:52 SECURITIES ADVISER Vishal Hui MD [facility] CPT-11842 Level 4 Est. Patient 09:19:27 CDT Vishal Hui MD [facility] CPT-67703 Level 3 Est. Patient 15:53:00 CDT Renzo Thornton [facility] CPT-47349 Level 3 Est. Patient 15:50:30 CDT Renzo Thornton [facility] CPT-70046 Level 3 Est. Patient 16:55:24 CDT Vishal Hui MD [facility] Procedures Code Procedure Name Date Entry Date Standard Description CPT-G0439 [facility] Annual Wellness Exam 09:30:58 SECURITIES ADVISER CPT-22576 TSH - LAB USE ONLY 08:50:26 SECURITIES ADVISER CPT-70389 CBC - LAB USE ONLY 08:50:26 SECURITIES ADVISER CPT-19142 Venipuncture Draw Fee 08:50:26 SECURITIES ADVISER CPT-28422 Abx/Therapy Injection 17:34:30 SECURITIES ADVISER CPT-63049 Nexplanon Removal with Reinsertion 14:09:32 CDT CPT-J7307 Nexplanon (Implant) 14:09:32 CDT CPT-OV Office Visit 14:09:32 CDT CPT-19767 UA w micro - LAB USE ONLY 16:21:13 CDT CPT-95479 Wet Mount - LAB USE ONLY 16:21:13 CDT CPT-31511 First Vx - Ix admin for Medicare patients 14:37:47 CDT CPT-12359 Fluzone Preservative Free Intramuscular Suspension 14:37 :47 CDT CPT-67174 Abx/Therapy Injection 13:54:22 CDT CPT-33922 Abx/Therapy Injection 08:47:09 CDT CPT-35952 Abx/Therapy Injection 13:29:56 CDT CPT-75080 Abx/Therapy Injection 08:36:16 CDT CPT-80940 Wet Mount - LAB USE ONLY 17:44:58 CDT CPT-45507 UA w micro - LAB USE ONLY 17:44:58 CDT CPT-31751 CMP - LAB USE ONLY 17:44:58 CDT CPT-30434 Venipuncture Draw Fee 17:44:58 CDT CPT-17842 Cervical Min 4V - XRAY USE ONLY 09:01:40 CDT CPT-97476 Chest 2V Frontal and Lat - XRAY USE ONLY 11:06:31 CDT CPT-75702 EKG Trac and Interp - XRAY USE ONLY 11:31:43 CDT 08/26 CPT-J3420 Vitamin B12 1000mcg (Cyanocobalamin) 08:10:26 SECURITIES ADVISER 04/12 CPT-36437 Abx/Therapy Injection 08:10:26 SECURITIES ADVISER CPT-G0438 Initial Annual Wellness Exam 19:01:01 SECURITIES ADVISER CPT-J3420 Vitamin B12 1000mcg (Cyanocobalamin) 16:57:46 CDT 08/14 CPT-46915 Recombivax HB Injection Suspension 5 MCG/0.5ML 08:37:50 SECURITIES ADVISER CPT-22094 Immunization Single Admin 08:37:50 SECURITIES ADVISER CPT-J3420 Vitamin B12 1000mcg (Cyanocobalamin) 08:32:16 SECURITIES ADVISER 03/11 CPT-26644 Abx/Therapy Injection 08:32:16 SECURITIES ADVISER CPT-28470 Chest 2V Frontal and Lat 11:46:38 SECURITIES ADVISER CPT-41278 Venipuncture Draw Fee 09:12:45 SECURITIES ADVISER CPT-J3420 Vitamin B12 1000mcg (Cyanocobalamin) 08:50:15 SECURITIES ADVISER 02/08 CPT-18624 Abx/Therapy Injection 08:50:15 SECURITIES ADVISER CPT-Cryo Cryotherapy 10:19:35 SECURITIES ADVISER CPT-000 Give Appropriate Flu Vaccine 09:22:16 CDT CPT-J3420 Vitamin B12 1000mcg (Cyanocobalamin) 19:08:57 CDT 01/11 CPT-88706 Abx/Therapy Injection 19:08:57 CDT CPT-J3420 Vitamin B12 1000mcg (Cyanocobalamin) 08:19:08 CDT 12/11 CPT-40513 Abx/Therapy Injection 08:19:08 CDT CPT-J3420 Vitamin B12 1000mcg (Cyanocobalamin) 14:48:00 CDT 11/09 CPT-20809 Abx/Therapy Injection 14:47:59 CDT CPT-J3420 Vitamin B12 1000mcg (Cyanocobalamin) 08:34:04 CDT 10/09 CPT-49692 Abx/Therapy Injection 08:34:04 CDT CPT-J3420 Vitamin B12 1000mcg (Cyanocobalamin) 09:18:52 CDT 09/11 CPT-58640 Abx/Therapy Injection 09:18:52 CDT CPT-J3420 Vitamin B12 1000mcg (Cyanocobalamin) 08:35:44 CDT 09/04 CPT-32010 Abx/Therapy Injection 08:35:44 CDT CPT-14942 Immunization Single Admin 11:07:16 CDT CPT-75795 Hepatitis B adult IM 11:07:16 CDT CPT-J3420 Vitamin B12 1000mcg (Cyanocobalamin) 11:00:49 CDT 08/28 CPT-J1040 Depo Medrol 80 mg (Methyl Prednisolone Acetate) 11:00: 49 CDT CPT-14950 Abx/Therapy Injection 11:00:49 CDT CPT-J1040 Depo Medrol 80 mg (Methyl Prednisolone Acetate) 09:16: 23 CDT CPT-J3420 Vitamin B12 1000mcg (Cyanocobalamin) 08:27:05 CDT 08/20 CPT-87643 Abx/Therapy Injection 08:27:05 CDT CPT-62809 Recombivax HB Injection Suspension 5 MCG/0.5ML 10:00:41 CDT CPT-39798 Administration single or combination vaccine inc oral 10 :00:41 CDT CPT-11041 Sono transvag pelvis non OB uterus ovaries cervix 16:36: 57 CDT CPT-97262 LS spine comp w obliq 09:50:55 SECURITIES ADVISER CPT-63605 Abd compl w upright 09:50:55 SECURITIES ADVISER CPT-J1100 Decadron 4mg (Dexamethasone) 15:51:24 SECURITIES ADVISER CPT-J1030 Depo Medrol 40 mg (Methyl Prednisolone Acetate) 15:51: 24 SECURITIES ADVISER CPT-25751 Abx/Therapy Injection 15:51:24 SECURITIES ADVISER CPT-J1100 Decadron 4mg (Dexamethasone) 15:26:33 SECURITIES ADVISER CPT-J1030 Depo Medrol 40 mg (Methyl Prednisolone Acetate) 15:26: 33 SECURITIES ADVISER CPT-23381 Sono retroperitoneal complete kidneys and bladder 17:15: 30 CDT CPT-67296 Abd compl w upright 16:09:25 CDT CPT-J1100 Decadron 8mg (Dexamethasone) 17:07:57 CDT CPT-12164 Abx/Therapy Injection 17:07:57 CDT CPT-J1100 Decadron 8mg (Dexamethasone) 16:55:24 CDT CPT-48082 Chest 2V Frontal and Lat 16:32:44 CDT
--- OUTSIDE RECORDS SUMMARY | 2016-11-04 23:04 | XMS REPORT | Clinical Summary ---
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 V72.31 Active Suzan [...] MD Health screening ICD-V70.0 Inactive Suzan Boo FIELD GAUGER Sinus tachycardia ICD-427.89 Inactive Suzan Boo FIELD GAUGER Smoker/tobacco use disorder-smoking cessation discussed ICD-305.1 Inactive [...] TABS 1 by mouth for yeast FLUCONAZOLE 35144841585 Active Suzan Boo APRN Active BACTRIM DS 800-160 MG TABS 1 twice a day SULFAMETHOXAZOLE- TRIMETHOPRIM 55350260212 Active Suzan Boo APRN Active EQ NICOTINE 21 MG/24HR TRANS PT24 Apply daily to stop smoking NICOTINE 22517588644 No Longer Active Suzan Boo APRN Active PREDNISONE 10 MG TABS 2 daily for 5 days then 1 daily for 5 days PREDNISONE 51104773439 No Longer Active Suzan Boo APRN Active LEVAQUIN 500 MG TABS 1 daily for infection LEVOFLOXACIN 13254846234 No Longer Active Suzan Boo APRN Active TROPICAMIDE 0.5 % OPHTH SOLN 1 drop PRN eye spasms TROPICAMIDE 45017564978 No Longer Active Suzan Boo APRN Active PREDNISONE 20 MG TAB 1 tablet daily x 4 days PREDNISONE 60150448443 No Longer Active Suzan Boo APRN Active ACETAMINOPHEN-CODEINE 120-12 MG/5ML SOLN 5 ml by mouth every 4-6 hours if needed for cough ACETAMINOPHEN-CODEINE 12883041698 No Longer Active Suzan Boo APRN Active KEFLEX 500 MG CAP 1 po qid CEPHALEXIN 56153062237 No Longer Active Suzan Boo APRN Active FLOVENT HFA 110 MCG/ACT AERO 2 puffs inhaled b.i.d. FLUTICASONE PROPIONATE HFA 59271714703 Active Renzo Thornton DO Active RISPERDAL 4 MG ORAL TABS 1 tab at bedtime RISPERIDONE 16406731117 Active Samantha Stephan RMA Active TESSALON PERLES 100 MG CAPS 1 three times a day as needed for cough BENZONATATE 45066824577 Active Suzan Boo APRN Active ZOFRAN 4 MG TABS 1 po q6hr PRN Nausea ONDANSETRON HCL No Longer Active Suzan Boo APRN Active FLUTICASONE PROPIONATE 50 MCG/ACT SUSP 2 sprays each nostril daily before bed. FLUTICASONE PROPIONATE 99658937948 No Longer Active Suzan Boo APRN Active ASPIRIN 325 MG ORAL TABS 1 tab q.d ASPIRIN 65532281859 No Longer Active Suzan Boo APRN Active HALOPERIDOL 10 MG ORAL TABS 1 tab q.d HALOPERIDOL 17273700980 No Longer Active Suzan Boo APRN Active GUAIFENESIN-CODEINE 100-10 MG/5ML SYRP 5ml every 4 to 6 hours as needed for cough GUAIFENESIN-CODEINE 82678265141 No Longer Active Suzan Boo APRN Active ZITHROMAX Z-EARNEST 250 MG TABS 2 today and then 1 daily for 4 days AZITHROMYCIN 49029090298 No Longer Active Suzan Boo APRN Active CLONAZEPAM 1 MG ORAL TABS 1 twice a day and an additional 1 tablet every other day as needed for pseudoseizures or anxiety CLONAZEPAM 66642857865 Active Ahmet Carbajal MD Active HYDROCODONE-ACETAMINOPHEN 5-325 MG ORAL TABS 1 tab two times a day HYDROCODONE-ACETAMINOPHEN 57162836931 No Longer Active Ahmet Carbajal MD Active LAMICTAL 100 MG ORAL TABS 1 tab 2 times qd. LAMOTRIGINE 41674144352 Active Ahmet Carbajal MD Active PREDNISONE 20 MG TABS 2 daily for 5 days then 1 daily for 5 days PREDNISONE 40268979076 No Longer Active Ahmet Carbajal MD Active FLUTICASONE PROPIONATE 50 MCG/ACT SUSP 1 to 2 sprays each nostril daily for allergies FLUTICASONE PROPIONATE 39941558573 Active Tila Valenzuela Active BENADRYL 25 MG CAP 4 po at bedtime for insomnia DIPHENHYDRAMINE HCL 33926922611 No Longer Active Ahmet Carbajal MD Active ADVAIR DISKUS 250-50 MCG/DOSE INH AEPB 1 puff twice a day for asthma FLUTICASONE-SALMETEROL 42262301893 No Longer Active Ahmet Carbajal MD Active KLONOPIN 1 MG ORAL TABS 1 tab po TID CLONAZEPAM 01237561214 No Longer Active Ahmet Carbajal MD Active ABILIFY MAINTENA 400 MG IM SUSR 400mg injection every 26 days ARIPIPRAZOLE 30071716915 No Longer Active Ahmet Carbajal MD Active TRAMADOL HCL 50 MG TABS 1/2-1 tab TID PRN TRAMADOL HCL 66705314275 No Longer Active Ahmet Carbajal MD Active BACTRIM DS 800-160 MG TABS 1 twice a day SULFAMETHOXAZOLE- TRIMETHOPRIM 19689884691 No Longer Active Ahmet Carbajal MD Active PROAIR HFA 108 (90 BASE) MCG/ACT AERS 2 puffs four times a day as needed 2015 ALBUTEROL SULFATE 56453454327 Active Ahmet Carbajal MD Active MONISTAT 7 COMBO PACK WOODROW 100 & 2 MG-% (9GM) VAG KIT 1 applicatorful per vagina q pm x 7 MICONAZOLE NITRATE 71396883237 No Longer Active Ahmet Carbajal MD Active FLAGYL 500 MG TAB 1 tablet by mouth bid METRONIDAZOLE 45070043618 No Longer Active Ahmet Carbajal MD Active OXYCODONE HCL ER 10 MG ORAL T12A 1/2 tab by mouth every 4 hours prn OXYCODONE HCL 89102282674 No Longer Active Ahmet Carbajal MD Active METHYLPREDNISOLONE 4 MG ORAL TABS po daily METHYLPREDNISOLONE 33649408932 No Longer Active Ahmet Carbajal MD Active LEVOFLOXACIN 500 MG ORAL TABS po daily LEVOFLOXACIN 44119714968 No Longer Active Ahmet Carbajal MD Active VIIBRYD 10 MG ORAL TABS Take 1 tablet once a day VILAZODONE HCL 00337975783 No Longer Active Ahmet Carbajal MD Active TOPAMAX 50 MG ORAL TABS 1 tab twice daily TOPIRAMATE 02600653366 No Longer Active Ahmet Carbajal MD Active DICLOFENAC SODIUM 50 MG TBEC 1 tablet by mouth four times daily PRN Pain 2015 DICLOFENAC SODIUM 20494842011 No Longer Active Ahmet Carbajal MD Active ADZENYS XR-ODT 6.3 MG ORAL TBED 1 tab po daily for ADHD AMPHETAMINE 14486433851 No Longer Active Ahmet Carbajal MD Active CHANTIX 1 MG TABS 1 twice a day to help quit smoking VARENICLINE TARTRATE 48207312724 No Longer Active Dipika Burgos MD Active CHANTIX STARTING MONTH EARNEST 0.5 MG X 11 & 1 MG X 42 TABS take as directed 2015 VARENICLINE TARTRATE 72095440604 No Longer Active Dipika Burgos MD Active TESSALON PERLES 100 MG CAP 1 to 2 tablets by mouth 3 times daily as needed for cough BENZONATATE 04154573287 No Longer Active Luigi Martínez APRN Active IMITREX 50 MG ORAL TABS 0.5 po x 1 PRN Headache. May repeat dose x 1 in 2 hours if needed SUMATRIPTAN SUCCINATE 86010526545 Active Ahmet Carbajal MD Active HYDROCODONE-ACETAMINOPHEN 5-325 MG TABS 1 to 2 four times a day as needed for pain use until can be seen by specialist HYDROCODONE- ACETAMINOPHEN 74841097450 No Longer Active Vishal Hui MD Active PROAIR HFA 108 (90 BASE) MCG/ACT AERS 2 puffs four times a day as needed 2015 ALBUTEROL SULFATE 91185564513 No Longer Active Vishal Hui MD Active PREDNISONE 20 MG TABS 2 daily for 5 days then 1 daily for 5 days PREDNISONE 29405657451 No Longer Active Vishal Hui MD Active ZITHROMAX Z-EARNEST 250 MG TABS 2 today and then 1 daily for 4 days AZITHROMYCIN 82841867693 No Longer Active Vishal Hui MD Active DICLOFENAC POTASSIUM TABS Take 1 tablet twice a day (pt. is not sure of the dose.) DICLOFENAC POTASSIUM TABS 22302710296 No Longer Active Vishal Hui MD Active VERAPAMIL HCL ER 120 MG ORAL CR-TABS Take 1 tablet by mouth twice a day. VERAPAMIL HCL 87657184766 Active Vishal Hui MD Active FLAGYL 500 MG TAB 1 tablet by mouth bid METRONIDAZOLE 35604717482 No Longer Active Vishal Hui MD Active VALIUM 5 MG TAB Take 1-2 tablets daily DIAZEPAM 65139790434 No Longer Active Fabiola Johnson APRN Active METOPROLOL TARTRATE 25 MG ORAL TABS 1/2 tablet twice daily for heart rate and blood pressure METOPROLOL TARTRATE 91817512448 No Longer Active Fabiola Johnson APRN Active MIRALAX ORAL POWD 17GMS DAILY IN WATER POLYETHYLENE GLYCOL 3350 54723170509 Active Berthaelif Kirby TAMARA Active MIRALAX PACK 1 po qd PRN Constipation POLYETHYLENE GLYCOL 3350 83852668681 No Longer Active Ahmet Carbajal MD Active MINIPRESS 2 MG CAPS 4 cap po at night PRAZOSIN HCL 87223035584 No Longer Active Ahmet Carbajal MD Active PIROXICAM 20 MG CAPS 1 cap po qd PRN Pain PIROXICAM 65670846411 No Longer Active Ahmet Carbajal MD Active TRAMADOL HCL 50 MG TABS 1-2 po TID PRN Pain TRAMADOL HCL 15104141644 No Longer Active Ahmet Carbajal MD Active METOPROLOL TARTRATE 50 MG TAB 1 po bid METOPROLOL TARTRATE 06478107630 No Longer Active Ahmet Carbajal MD Active ABILIFY 15 MG ORAL TABS 1 tab daily ARIPIPRAZOLE 00195429942 No Longer Active Ahmet Carbajal MD Active PROZAC 20 MG ORAL CAPS 1 tab daily FLUOXETINE HCL 59104936225 No Longer Active Ahmet Carbajal MD Active AMBIEN 5 MG ORAL TABS 1 tab at bedtime ZOLPIDEM TARTRATE 15071917454 No Longer Active Ahmet Carbajal MD Active PREDNISONE 20 MG TAB 2 tabs daily for 4 days, 1 tab daily for 4 days, 1/2 tab daily for 4 days PREDNISONE 23799163459 No Longer Active Ahmet Carbajal MD Active KEFLEX 500 MG CAP 1 po TID x 10 days CEPHALEXIN 20658214565 No Longer Active Vishal Hui MD Active SAPHRIS 5 MG SUBL 1 po bid ASENAPINE MALEATE 86086461810 No Longer Active Luigi Martínez APRN Active LATUDA 80 MG TABS Take one by mouth daily LURASIDONE HCL 14249087487 No Longer Active Jillina Fralebron FIELD GAUGER Active AMLODIPINE BESYLATE 5 MG TABS 1 tablet by mouth daily AMLODIPINE BESYLATE 33669965254 No Longer Active Tatajanee Mauricio NORIEGA Active AMITRIPTYLINE HCL 100 MG TAB one at hs AMITRIPTYLINE HCL 51081821915 No Longer Active Vishal Hui MD Active TRAZODONE HCL 100 MG TAB take 1 at bedtime TRAZODONE HCL 78911479913 No Longer Active Vishal Hui MD Active VYVANSE 40 MG CAPS 1 daily, LISDEXAMFETAMINE DIMESYLATE 75835674146 No Longer Active Vishal Hui MD Active IBUPROFEN 600 MG TAB 1 po TID PRN IBUPROFEN 40264286328 No Longer Active Vishal Hui MD Active PROZAC 20 MG CAP Take one by mouth daily FLUOXETINE HCL 33440602516 No Longer Active Vishal Hui MD Active BACTRIM DS 800-160 MG TABS 1 pill by mouth twice daily SULFAMETHOXAZOLE-TRIMETHOPRIM 19714302830 No Longer Active Sahara Rodriguez MD PhD Active DIFLUCAN 150 MG TAB 1 tablet by mouth daily FLUCONAZOLE 29054852089 No Longer Active Vishal Hui MD Active TIZANIDINE HCL 4 MG TABS 1 po q6hr PRN Muscle Spasm/Back Pain TIZANIDINE HCL 56337313038 Active Vishal Hui MD Active CLINDAMYCIN HCL 150 MG CAPS 1 four times a day CLINDAMYCIN HCL 84188587344 No Longer Active Neeraj Collins MD Active KEFLEX 500 MG ORAL CAPS 1 cap QID by mouth CEPHALEXIN 56840214338 No Longer Active Neeraj Collins MD Active DIFLUCAN 150 MG TABS 1 pill every other day x 2 doses FLUCONAZOLE 58459721392 No Longer Active Sahara Rodriguez MD PhD Active MELATONIN 3 MG CAPS 2 po q hs MELATONIN 85729329615 No Longer Active Sahara Rodriguez MD PhD Active MULTIVITAMINS CAPS Take one by mouth daily MULTIPLE VITAMIN 17559776017 No Longer Active Sahara Rodriguez MD PhD Active BACTRIM DS 800-160 MG TAB 1 tab by mouth twice daily TRIMETHOPRIM-SULFAMETHOXAZOLE 43904997382 No Longer Active Sahara Rodriguez MD PhD Active [facility] PROBIOTIC ORAL CHEW 2 daily po PROBIOTIC PRODUCT 77418263173 No Longer Active Sahara Rodriguez MD PhD Active BACTRIM DS 800-160 MG TABS 1 po BID x 7 days SULFAMETHOXAZOLE-TRIMETHOPRIM 48307309684 No Longer Active Vishal Hui MD Active CHANTIX STARTING MONTH EARNEST 0.5 MG X 11 & 1 MG X 42 TABS 0.5mg daily for 3 days , then 0.5mg BID for 4 days, then 1mg BID VARENICLINE TARTRATE 52156224170 No Longer Active TAMARA Gray Active VERAPAMIL HCL CR 120 MG TAB CR 1 po bid VERAPAMIL HCL 77224481822 No Longer Active Vishal Hui MD Active METOPROLOL SUCCINATE 50 MG TB24 1 tablet by mouth daily METOPROLOL SUCCINATE 60967509061 No Longer Active Vishal Hui MD Active SAPHRIS 10 MG SUBL 1 tab po bid ASENAPINE MALEATE 97720720012 No Longer Active Vishal Hui MD Active LISINOPRIL 20 MG TABS 1 tab po qd LISINOPRIL 15853563648 No Longer Active Vishal Hui MD Active LATUDA 20 MG TABS Take one by mouth daily LURASIDONE HCL 64186957393 No Longer Active Vishal Hui MD Active TRAZODONE HCL 50 MG TABS 1/2 tab po qd prn for anxiety TRAZODONE HCL 08240869704 No Longer Active Vishal Hui MD Active OMEPRAZOLE 20 MG TBEC 1 po q a.m. 30min prior to first food intake OMEPRAZOLE 22680236788 Active TAMARA Casey Active RANITIDINE HCL 150 MG CAPS 1 twice a day RANITIDINE HCL 35659042743 Active Pacooral Mesislebron NORIEGA Active LINZESS 290 MCG CAPS Take one by mouth daily LINACLOTIDE 63581358250 No Longer Active Vishal Hui MD Active SAPHRIS 5 MG SUBL 1 tab po qd ASENAPINE MALEATE 68130597032 No Longer Active Vishal Hui MD Active ZALEPLON 10 MG CAPS 1 cap po every other night ZALEPLON 91520566263 No Longer Active Vishal Hui MD Active LYRICA 50 MG CAPS 1 tab po TID PREGABALIN 52690744731 No Longer Active Vishal Hui MD Active LORATADINE 10 MG TABS 1 tab po qd LORATADINE 95510582283 No Longer Active Vishal Hui MD Active VERAPAMIL HCL ER 180 MG CR-TABS 1 tab po bid VERAPAMIL HCL 25996363087 No Longer Active Vishal Hui MD Active MIRALAX POWD 1 capfull once daily POLYETHYLENE GLYCOL 3350 91294655891 No Longer Active Vishal Hui MD Active PREDNISONE 20 MG TABS 1 tab po qd PREDNISONE 47525109160 No Longer Active Renzo Thornton DO Active LEVOFLOXACIN 500 MG TABS 1 tab po qd LEVOFLOXACIN 00975920871 No Longer Active Renzo Thornton DO Active BUSPIRONE HCL 15 MG TABS 1 tab po TID BUSPIRONE HCL 42976265727 No Longer Active Renzo Thornton DO Active BENZTROPINE MESYLATE 1 MG TABS 1 tab po qd BENZTROPINE MESYLATE 43254822300 No Longer Active Renzo Thornton DO Active ATENOLOL 25 MG TABS 1 tab po qd ATENOLOL 50012674503 No Longer Active Renzo Thornton DO Active ESCITALOPRAM OXALATE 20 MG TABS 1 tab po qd ESCITALOPRAM OXALATE 85447428517 No Longer Active Renzo Thornton DO Active ADVAIR DISKUS 250-50 MCG/DOSE AEPB 1 puff BID FLUTICASONE-SALMETEROL 77539780541 No Longer Active Renzo Thornton DO Active PREDNISONE 20 MG TAB 2 tabs daily for 3 days, 1 tab daily for 3 days, 1/2 tab daily for 2 days PREDNISONE 46756766455 No Longer Active Vishal Hui MD Active CEFDINIR 300 MG CAPS by mouth twice a day CEFDINIR 13987230690 No Longer Active Vishal Hui MD Active LANSOPRAZOLE 30 MG CPDR 1 cap po qd LANSOPRAZOLE 57497301148 No Longer Active Vishal Hui MD Active BACLOFEN 20 MG TABS 1 tab po tid BACLOFEN 22826175945 No Longer Active Vishal Hui MD Active ADVAIR DISKUS 250-50 MCG/DOSE AEPB 1 puff BID ADVAIR DISKUS 250-50 MCG/DOSE AEPB FLUTICASONE-SALMETEROL Inactive ESCITALOPRAM OXALATE 20 MG TABS 1 tab po qd ESCITALOPRAM OXALATE 20 MG TABS 821374 ESCITALOPRAM OXALATE Inactive ATENOLOL 25 MG TABS 1 tab po qd ATENOLOL 25 MG TABS 390002 ATENOLOL Inactive BENZTROPINE MESYLATE 1 MG TABS 1 tab po qd BENZTROPINE MESYLATE 1 MG TABS 678507 BENZTROPINE MESYLATE Inactive BUSPIRONE HCL 15 MG TABS 1 tab po TID BUSPIRONE HCL 15 MG TABS 071417 BUSPIRONE HCL Inactive LEVOFLOXACIN 500 MG TABS 1 tab po qd LEVOFLOXACIN 500 MG TABS 103306 LEVOFLOXACIN Inactive PREDNISONE 20 MG TABS 1 tab po qd PREDNISONE 20 MG TABS 780593 PREDNISONE Inactive MIRALAX POWD 1 capfull once daily MIRALAX POWD 677834 POLYETHYLENE GLYCOL 3350 Inactive VERAPAMIL HCL ER 180 MG CR-TABS 1 tab po bid VERAPAMIL HCL ER 180 MG CR-TABS VERAPAMIL HCL Inactive LORATADINE 10 MG TABS 1 tab po qd LORATADINE 10 MG TABS 568257 LORATADINE Inactive LYRICA 50 MG CAPS 1 tab po TID LYRICA 50 MG CAPS PREGABALIN Inactive ZALEPLON 10 MG CAPS 1 cap po every other night ZALEPLON 10 MG CAPS 558281 ZALEPLON Inactive SAPHRIS 5 MG SUBL 1 tab po qd SAPHRIS 5 MG SUBL ASENAPINE MALEATE Inactive TRAZODONE HCL 50 MG TABS 1/2 tab po qd prn for anxiety TRAZODONE HCL 50 MG TABS 190375 TRAZODONE HCL Inactive LATUDA 20 MG TABS Take one by mouth daily LATUDA 20 MG TABS LURASIDONE HCL Inactive LISINOPRIL 20 MG TABS 1 tab po qd LISINOPRIL 20 MG TABS 605819 LISINOPRIL Inactive SAPHRIS 10 MG SUBL 1 [...] twice daily BACTRIM DS 800-160 MG TAB 289274 TRIMETHOPRIM-SULFAMETHOXAZOLE Inactive MULTIVITAMINS CAPS Take one by mouth daily MULTIVITAMINS CAPS MULTIPLE VITAMIN Inactive MELATONIN 3 MG CAPS 2 po q hs MELATONIN 3 MG CAPS 051898 MELATONIN Inactive KEFLEX 500 MG ORAL CAPS 1 cap QID by mouth KEFLEX 500 MG ORAL CAPS 911523 CEPHALEXIN Inactive CLINDAMYCIN HCL 150 MG CAPS 1 four times a day CLINDAMYCIN HCL 150 MG CAPS 315697 CLINDAMYCIN HCL Inactive DIFLUCAN 150 MG TAB 1 tablet by mouth daily DIFLUCAN 150 MG TAB 492606 FLUCONAZOLE Inactive PROZAC 20 MG CAP Take one by mouth daily PROZAC 20 MG CAP 713492 FLUOXETINE HCL Inactive IBUPROFEN 600 MG TAB 1 po TID PRN IBUPROFEN 600 MG TAB 965728 IBUPROFEN Inactive VYVANSE 40 MG CAPS 1 daily, VYVANSE 40 MG CAPS LISDEXAMFETAMINE DIMESYLATE Inactive TRAZODONE HCL 100 MG TAB take 1 at bedtime TRAZODONE HCL 100 MG TAB 806112 TRAZODONE HCL Inactive AMITRIPTYLINE HCL 100 MG TAB one at hs AMITRIPTYLINE HCL 100 MG TAB 084741 AMITRIPTYLINE HCL Inactive AMLODIPINE BESYLATE 5 MG TABS 1 tablet by mouth daily AMLODIPINE BESYLATE 5 MG TABS 480963 AMLODIPINE BESYLATE Inactive LATUDA 80 MG TABS Take one by mouth daily LATUDA 80 MG TABS LURASIDONE HCL Inactive SAPHRIS 5 MG SUBL 1 po bid SAPHRIS 5 MG SUBL ASENAPINE MALEATE Inactive PREDNISONE 20 MG TAB 2 tabs daily for 4 days, 1 tab daily for 4 days, 1/2 tab daily for 4 days PREDNISONE 20 MG TAB 937817 PREDNISONE Inactive AMBIEN 5 MG ORAL TABS 1 tab at bedtime AMBIEN 5 MG ORAL TABS 257136 ZOLPIDEM TARTRATE Inactive PROZAC 20 MG ORAL CAPS 1 tab daily PROZAC 20 MG ORAL CAPS 205042 FLUOXETINE HCL Inactive ABILIFY 15 MG ORAL TABS 1 tab daily ABILIFY 15 MG ORAL TABS 045514 ARIPIPRAZOLE Inactive METOPROLOL TARTRATE 50 MG TAB 1 po bid METOPROLOL TARTRATE 50 MG TAB 668281 METOPROLOL TARTRATE Inactive TRAMADOL HCL 50 MG TABS 1-2 po TID PRN Pain TRAMADOL HCL 50 MG TABS 870924 TRAMADOL HCL Inactive PIROXICAM 20 MG CAPS 1 cap po qd PRN Pain PIROXICAM 20 MG CAPS 043209 PIROXICAM Inactive MINIPRESS 2 MG CAPS 4 cap po at night MINIPRESS 2 MG CAPS 647739 PRAZOSIN HCL Inactive MIRALAX PACK 1 po qd PRN Constipation MIRALAX PACK 272445 POLYETHYLENE GLYCOL 3350 Inactive METOPROLOL TARTRATE 25 MG ORAL TABS 1/2 tablet twice daily for heart rate and blood pressure METOPROLOL TARTRATE 25 MG ORAL TABS 678932 METOPROLOL TARTRATE Inactive VALIUM 5 MG TAB Take 1-2 tablets daily VALIUM 5 MG TAB 660853 DIAZEPAM Inactive FLAGYL 500 MG TAB 1 tablet by mouth bid FLAGYL 500 MG TAB 390096 METRONIDAZOLE Inactive DICLOFENAC POTASSIUM TABS Take 1 tablet twice a day (pt. is not sure of the dose.) DICLOFENAC POTASSIUM TABS DICLOFENAC POTASSIUM TABS Inactive ZITHROMAX Z-EARNEST 250 MG TABS 2 today and then 1 daily for 4 days ZITHROMAX Z-EARNEST 250 MG TABS 3650127 AZITHROMYCIN Inactive PREDNISONE 20 MG TABS 2 daily for 5 days then 1 daily for 5 days PREDNISONE 20 MG TABS 358873 PREDNISONE Inactive PROAIR HFA 108 (90 BASE) MCG/ACT AERS 2 puffs four times a day as needed 2015 PROAIR HFA 108 (90 BASE) MCG/ACT AERS ALBUTEROL SULFATE Inactive HYDROCODONE-ACETAMINOPHEN 5-325 MG TABS 1 to 2 four times a day as needed for pain use until can be seen by specialist HYDROCODONE- ACETAMINOPHEN 5-325 MG TABS 111171 HYDROCODONE-ACETAMINOPHEN Inactive TESSALON PERLES 100 MG CAP 1 to 2 tablets by mouth 3 times daily as needed for cough TESSALON PERLES 100 MG CAP 848714 BENZONATATE Inactive CHANTIX STARTING MONTH EARNEST 0.5 [...] Pain 2015 DICLOFENAC SODIUM 50 MG TBEC 282901 DICLOFENAC SODIUM Inactive TOPAMAX 50 MG ORAL TABS 1 tab twice daily TOPAMAX 50 MG ORAL TABS 905909 TOPIRAMATE Inactive VIIBRYD 10 MG ORAL TABS Take 1 tablet once a day VIIBRYD 10 MG ORAL TABS VILAZODONE HCL Inactive LEVOFLOXACIN 500 MG ORAL TABS po daily LEVOFLOXACIN 500 MG ORAL TABS 013998 LEVOFLOXACIN Inactive METHYLPREDNISOLONE 4 MG ORAL TABS po daily METHYLPREDNISOLONE 4 MG ORAL TABS 880703 METHYLPREDNISOLONE Inactive OXYCODONE HCL ER 10 MG ORAL T12A 1/2 tab by mouth every 4 hours prn OXYCODONE HCL ER 10 MG ORAL T12A OXYCODONE HCL Inactive FLAGYL 500 MG TAB 1 tablet by mouth bid FLAGYL 500 MG TAB 305454 METRONIDAZOLE Inactive MONISTAT 7 COMBO PACK WOODROW 100 & 2 MG-% (9GM) VAG KIT 1 applicatorful per vagina q pm x 7 MONISTAT 7 COMBO PACK WOODROW 100 & 2 MG-% (9GM) VAG KIT MICONAZOLE NITRATE Inactive BACTRIM DS 800-160 MG TABS 1 twice a day BACTRIM DS 800-160 MG TABS 870442 SULFAMETHOXAZOLE-TRIMETHOPRIM Inactive TRAMADOL HCL 50 MG TABS 1/2-1 tab TID PRN TRAMADOL HCL 50 MG TABS 510631 TRAMADOL HCL Inactive ABILIFY MAINTENA 400 MG IM SUSR 400mg injection every 26 days ABILIFY MAINTENA 400 MG IM SUSR ARIPIPRAZOLE Inactive KLONOPIN 1 MG ORAL TABS 1 tab po TID KLONOPIN 1 MG ORAL TABS 329114 CLONAZEPAM Inactive ADVAIR DISKUS 250-50 MCG/DOSE INH AEPB 1 puff twice a day for asthma ADVAIR DISKUS 250-50 MCG/DOSE INH AEPB FLUTICASONE- SALMETEROL Inactive BENADRYL 25 MG CAP 4 po at bedtime for insomnia BENADRYL 25 MG CAP DIPHENHYDRAMINE HCL Inactive PREDNISONE 20 MG TABS 2 daily for 5 days then 1 daily for 5 days PREDNISONE 20 MG TABS 148712 PREDNISONE Inactive HYDROCODONE-ACETAMINOPHEN 5-325 MG ORAL TABS 1 tab two times a day HYDROCODONE-ACETAMINOPHEN 5-325 MG ORAL TABS 497173 HYDROCODONE-ACETAMINOPHEN Inactive ZITHROMAX Z-EARNEST 250 MG TABS 2 today and then 1 daily for 4 days ZITHROMAX Z-EARNEST 250 MG TABS 1425669 AZITHROMYCIN Inactive GUAIFENESIN-CODEINE 100-10 MG/5ML SYRP 5ml every 4 to 6 hours as needed for cough GUAIFENESIN-CODEINE 100-10 MG/5ML SYRP 549882 GUAIFENESIN-CODEINE Inactive HALOPERIDOL 10 MG ORAL TABS 1 tab q.d HALOPERIDOL 10 MG ORAL TABS 509507 HALOPERIDOL Inactive ASPIRIN 325 MG ORAL TABS 1 tab q.d ASPIRIN 325 MG ORAL TABS 299889 ASPIRIN Inactive FLUTICASONE PROPIONATE 50 MCG/ACT SUSP 2 sprays each nostril daily before bed. FLUTICASONE PROPIONATE 50 MCG/ACT SUSP 1772291 FLUTICASONE PROPIONATE Inactive ZOFRAN 4 MG TABS 1 po q6hr PRN Nausea ZOFRAN 4 MG TABS 676794 ONDANSETRON HCL Inactive KEFLEX 500 MG CAP 1 po qid KEFLEX 500 MG CAP 750428 CEPHALEXIN Inactive ACETAMINOPHEN-CODEINE 120-12 MG/5ML SOLN 5 ml by mouth every 4-6 hours if needed for cough ACETAMINOPHEN-CODEINE 120-12 MG/5ML SOLN 782556 ACETAMINOPHEN-CODEINE Inactive PREDNISONE 20 MG TAB 1 tablet daily x 4 days PREDNISONE 20 MG TAB 610021 PREDNISONE Inactive TROPICAMIDE 0.5 % OPHTH SOLN 1 drop PRN eye spasms TROPICAMIDE 0.5 % OPHTH SOLN 118126 TROPICAMIDE Inactive LEVAQUIN 500 MG TABS 1 daily for infection LEVAQUIN 500 MG TABS 669928 LEVOFLOXACIN Inactive PREDNISONE 10 MG TABS 2 daily for 5 days then 1 daily for 5 days PREDNISONE 10 MG TABS 105258 PREDNISONE Inactive EQ NICOTINE 21 MG/24HR TRANS PT24 Apply daily to stop smoking EQ NICOTINE 21 MG/24HR TRANS PT24 NICOTINE Inactive CEFDINIR 300 MG CAPS by mouth twice a day CEFDINIR 300 MG CAPS 826850 CEFDINIR Inactive PREDNISONE 20 MG TAB 2 tabs daily for 3 days, 1 tab daily for 3 days, 1/2 tab daily for 2 days PREDNISONE 20 MG TAB 024363 PREDNISONE Inactive BACTRIM DS 800-160 MG TABS 1 po BID x 7 days BACTRIM DS 800-160 MG TABS 19820521 SULFAMETHOXAZOLE-TRIMETHOPRIM Inactive DIFLUCAN 150 MG TABS 1 pill every other day x 2 doses DIFLUCAN 150 MG TABS 631734 FLUCONAZOLE Inactive BACTRIM DS 800-160 MG TABS 1 pill by mouth twice daily BACTRIM DS 800-160 MG TABS 19820521 SULFAMETHOXAZOLE-TRIMETHOPRIM Inactive KEFLEX 500 MG CAP 1 po TID x 10 days KEFLEX 500 MG CAP 386746 CEPHALEXIN Inactive Advance Directives Directive Description Start [...] % 11.0-15.0 platelet count 443 THOUSAND/UL 10*3/mm3 231-724 8341/03/01 mean platelet volume 8.2 fL 7.5-12.5 Lab [...] 369 10^3/MM^3 10*3/mm3 142-424 Lab Report: Chlamydia/GC APTIMA/[id number] - Lab chlamydia DNA probe NOT DETECTED NOT DETECTED Lab Report: Chlamydia/GC APTIMA/[id number] - Microbiology Neisseria gonorrhoeae DNA probe NOT DETECTED NOT DETECTED Lab Report: Chlamydia/GC APTIMA/[id number], Urinalysis, Complete, with Reflex ... - Lab chlamydia DNA probe NOT DETECTED NOT DETECTED Lab Report: Chlamydia/GC APTIMA/[id number], Urinalysis, Complete, with Reflex ... - Microbiology Neisseria gonorrhoeae DNA probe NOT DETECTED NOT DETECTED Lab Report: Chlamydia/GC APTIMA/[id number], Urinalysis, Complete, with Reflex ... - Urinalysis microalbumin/total urine volume 2 mg/L Units converted. See lab report for original value. microalbumin/creatinine ratio, urine 9 MCG/MG CREAT mg/L <30 Lab Report: Comp. Metabolic Panel - Chemistry sodium, serum 142 mmol/L [phone]/06/08 carbon dioxide, venous blood 27.6 mmol/L 21.0-32.0 potassium, serum 4.0 mmol/L 3.5-5.2 chloride, serum 105 mmol/L 98-107 blood glucose 95 mg/dL 65-110 urea nitrogen, blood 8 mg/dL 7-18 creatinine, serum 0.75 mg/dL 0.55-1.30 alanine aminotransferase (SGPT), serum 49 U/L 12-78 aspartate aminotransferase (SGOT), serum 28 U/L 15-37 calcium, serum 9.4 mg/dL 8.5-10.1 bilirubin, serum, total 0.30 mg/dL 0.00-1.00 sodium, serum 140 mmol/L 221-208 8228/08/08 carbon dioxide, venous blood 33.7 mmol/L 21.0-32.0 [...] mg/dL Encounters Code Encounter Date Provider Facility CPT-93685 Level 3 Est. Patient 10:29:30 CDT Suzan Boo [facility] CPT-50327 Level 3 Est. Patient 11:04:38 CDT [facility] CPT-18038 Level 3 Est. Patient 11:15:58 MARITIME GUARD [facility] CPT-67149 Level 3 Est. Patient 15:28:23 MARITIME GUARD Suzan Boo [facility] CPT-79801 Level 4 Est. Patient 10:20:54 MARITIME GUARD Suzan Boo [facility] CPT-60197 Level 3 Est. Patient 11:47:37 MARITIME GUARD Ahmet Carbajal MD [facility] CPT-08057 Level 3 Est. Patient 10:40:11 MARITIME GUARD Ahmet Carbajal MD [facility] CPT-29697 Level 3 Est. Patient 15:07:06 MARITIME GUARD Neeraj Collins MD [facility] CPT-58995 Level 4 Est. Patient 14:45:00 MARITIME GUARD Ahmet Carbajal MD [facility] CPT-09980 Level 3 Est. Patient 13:59:59 CDT Luigi Martínez [facility] CPT-58644 Level 3 Est. Patient 18:18:53 CDT Neeraj Collins MD [facility] CPT-25039 Level 3 Est. Patient 15:50:44 CDT Vishal Hui MD [facility] CPT-84494 Level 3 Est. Patient 11:36:17 CDT Ahmet Carbajal MD [facility] CPT-94617 Level 3 Est. Patient 13:29:16 CDT Vishal Hui MD [facility] CPT-18773 Level 3 Est. Patient 14:27:52 CDT Neeraj Collins MD [facility] CPT-88518 Level 3 Est. Patient 08:56:03 CDT Luigi Martínez [facility] CPT-84415 Level 4 Est. Patient 12:11:48 CDT Fabiola Johnson [facility] CPT-78381 Level 3 New Patient 16:53:37 CDT Albert Caldera MD [facility] CPT-05308 Level 3 Est. Patient 11:25:49 CDT Renzo Thornton DO [facility] CPT-46576 Level 3 Est. Patient 15:22:01 CDT Ahmet Carbajal MD [facility] CPT-68361 Level 4 Est. Patient 09:00:51 MARITIME GUARD Vishal Hui MD [facility] CPT-75041 Level 3 Est. Patient 11:37:33 MARITIME GUARD Vishal Hui MD [facility] CPT-40969 Level 3 Est. Patient 08:41:09 MARITIME GUARD Vishal Hui MD [facility] CPT-53508 Level 4 Est. Patient 10:19:35 MARITIME GUARD Vishal Hui MD [facility] CPT-24147 Level 3 Est. Patient 13:35:45 CDT Vishal Hui MD [facility] CPT-59725 Level 4 Est. Patient 10:08:37 CDT Vishal Hui MD [facility] CPT-41190 Level 3 Est. Patient 11:22:10 CDT Vishal Hui MD [facility] CPT-74224 Level 3 Est. Patient 11:03:32 CDT Sahara Rodriguez MD, PhD [facility] CPT-27257 Level 3 Est. Patient 09:41:35 CDT Vishal Hui MD [facility] CPT-42450 Level 3 Est. Patient 12:00:41 CDT Neeraj Collins MD [facility] CPT-96892 Level 3 Est. Patient 09:16:24 CDT Vishal Hui MD [facility] CPT-02000 Level 4 Est. Patient 13:59:09 CDT Neeraj Collins MD [facility]-30356 Level 3 Est. Patient 15:19:43 CDT Renzo Thornton DO [facility] CPT-73843 Level 3 Est. Patient 18:10:26 CDT Sahara Rodriguez MD [facility]-56544 Level 3 Est. Patient 14:49:50 CDT Vishal Hui MD [facility]-50488 Level 4 Est. Patient 18:41:46 CDT Neeraj Collins MD [facility]-49672 Level 4 Est. Patient 09:18:38 MARITIME GUARD Vishal Hui MD [facility] CPT-58622 Level 3 Est. Patient 14:43:55 MARITIME GUARD Vishal Hui MD [facility] CPT-72877 Level 3 Est. Patient 15:26:33 MARITIME GUARD Sahara Rodriguez MD PhD [facility]-04112 Level 3 Est. Patient 10:32:14 MARITIME GUARD Vishal Hui MD [facility] CPT-71229 Level 3 Est. Patient 15:12:52 MARITIME GUARD Vishal Hui MD [facility] CPT-29531 Level 4 Est. Patient 09:19:27 CDT Vishal Hui MD [facility]-18739 Level 3 Est. Patient 15:53:00 CDT Renzo Thornton [facility]-23412 Level 3 Est. Patient 15:50:30 CDT Renzo Thornton DO [facility] CPT-24017 Level 3 Est. Patient 16:55:24 CDT Vishal Hui MD [facility] Procedures Code Procedure Name Date Entry Date Standard Description CPT-33994 Smoking Cessation counseling 11:15:58 MARITIME GUARD CPT-G0439 Subsequent Annual Wellness Exam 09:30:58 MARITIME GUARD CPT-83479 TSH - LAB USE ONLY 08:50:26 MARITIME GUARD CPT-42128 CBC - LAB USE ONLY 08:50:26 MARITIME GUARD CPT-74061 Venipuncture Draw Fee 08:50:26 MARITIME GUARD CPT-03566 Abx/Therapy Injection 17:34:30 MARITIME GUARD CPT-95088 Nexplanon Removal with Reinsertion 14:09:32 CDT CPT-J7307 Nexplanon (Implant) 14:09:32 CDT CPT-OV Office Visit 14:09:32 CDT CPT-59317 UA w micro - LAB USE ONLY 16:21:13 CDT CPT-04724 Wet Mount - LAB USE ONLY 16:21:13 CDT CPT-77405 First Vx - Ix admin for Medicare patients 14:37:47 CDT CPT-56159 Fluzone Preservative Free Intramuscular Suspension 14:37 :47 CDT CPT-46775 Abx/Therapy Injection 13:54:22 CDT CPT-03664 Abx/Therapy Injection 08:47:09 CDT CPT-00357 Abx/Therapy Injection 13:29:56 CDT CPT-99021 Abx/Therapy Injection 08:36:16 CDT CPT-25427 Wet Mount - LAB USE ONLY 17:44:58 CDT CPT-90884 UA w micro - LAB USE ONLY 17:44:58 CDT CPT-77916 CMP - LAB USE ONLY 17:44:58 CDT CPT-12286 Venipuncture Draw Fee 17:44:58 CDT CPT-13416 Cervical Min 4V - XRAY USE ONLY 09:01:40 CDT CPT-41648 Chest 2V Frontal and Lat - XRAY USE ONLY 11:06:31 CDT CPT-81718 EKG Trac and Interp - XRAY USE ONLY 11:31:43 CDT 08/26 CPT-J3420 Vitamin B12 1000mcg (Cyanocobalamin) 08:10:26 MARITIME GUARD 04/12 CPT-83278 Abx/Therapy Injection 08:10:26 MARITIME GUARD CPT-G0438 Initial Annual Wellness Exam 19:01:01 MARITIME GUARD CPT-J3420 Vitamin B12 1000mcg (Cyanocobalamin) 16:57:46 CDT 08/14 CPT-92988 Recombivax HB Injection Suspension 5 MCG/0.5ML 08:37:50 MARITIME GUARD CPT-84432 Immunization Single Admin 08:37:50 MARITIME GUARD CPT-J3420 Vitamin B12 1000mcg (Cyanocobalamin) 08:32:16 MARITIME GUARD 03/11 CPT-31092 Abx/Therapy Injection 08:32:16 MARITIME GUARD CPT-23075 Chest 2V Frontal and Lat 11:46:38 MARITIME GUARD CPT-89842 Venipuncture Draw Fee 09:12:45 MARITIME GUARD CPT-J3420 Vitamin B12 1000mcg (Cyanocobalamin) 08:50:15 MARITIME GUARD 02/08 CPT-94949 Abx/Therapy Injection 08:50:15 MARITIME GUARD CPT-Cryo Cryotherapy 10:19:35 MARITIME GUARD CPT-000 Give Appropriate Flu Vaccine 09:22:16 CDT CPT-J3420 Vitamin B12 1000mcg (Cyanocobalamin) 19:08:57 CDT 01/11 CPT-25655 Abx/Therapy Injection 19:08:57 CDT CPT-J3420 Vitamin B12 1000mcg (Cyanocobalamin) 08:19:08 CDT 12/11 CPT-15396 Abx/Therapy Injection 08:19:08 CDT CPT-J3420 Vitamin B12 1000mcg (Cyanocobalamin) 14:48:00 CDT 11/09 CPT-04555 Abx/Therapy Injection 14:47:59 CDT CPT-J3420 Vitamin B12 1000mcg (Cyanocobalamin) 08:34:04 CDT 10/09 CPT-06556 Abx/Therapy Injection 08:34:04 CDT CPT-J3420 Vitamin B12 1000mcg (Cyanocobalamin) 09:18:52 CDT 09/11 CPT-25847 Abx/Therapy Injection 09:18:52 CDT CPT-J3420 Vitamin B12 1000mcg (Cyanocobalamin) 08:35:44 CDT 09/04 CPT-43446 Abx/Therapy Injection 08:35:44 CDT CPT-04077 Immunization Single Admin 11:07:16 CDT CPT-74043 Hepatitis B adult IM 11:07:16 CDT CPT-J3420 Vitamin B12 1000mcg (Cyanocobalamin) 11:00:49 CDT 08/28 CPT-J1040 Depo Medrol 80 mg (Methyl Prednisolone Acetate) 11:00: 49 CDT CPT-84221 Abx/Therapy Injection 11:00:49 CDT CPT-J1040 Depo Medrol 80 mg (Methyl Prednisolone Acetate) 09:16: 23 CDT CPT-J3420 Vitamin B12 1000mcg (Cyanocobalamin) 08:27:05 CDT 08/20 CPT-29497 Abx/Therapy Injection 08:27:05 CDT CPT-07229 Recombivax HB Injection Suspension 5 MCG/0.5ML 10:00:41 CDT CPT-71663 Administration single or combination vaccine inc oral 10 :00:41 CDT CPT-21912 Sono transvag pelvis non OB uterus ovaries cervix 16:36: 57 CDT CPT-99782 LS spine comp w obliq 09:50:55 MARITIME GUARD CPT-32052 Abd compl w upright 09:50:55 MARITIME GUARD CPT-J1100 Decadron 4mg (Dexamethasone) 15:51:24 MARITIME GUARD CPT-J1030 Depo Medrol 40 mg (Methyl Prednisolone Acetate) 15:51: 24 MARITIME GUARD CPT-96727 Abx/Therapy Injection 15:51:24 MARITIME GUARD CPT-J1100 Decadron 4mg (Dexamethasone) 15:26:33 MARITIME GUARD CPT-J1030 Depo Medrol 40 mg (Methyl Prednisolone Acetate) 15:26: 33 MARITIME GUARD CPT-91830 Sono retroperitoneal complete kidneys and bladder 17:15: 30 CDT CPT-26854 Abd compl w upright 16:09:25 CDT CPT-J1100 Decadron 8mg (Dexamethasone) 17:07:57 CDT CPT-60412 Abx/Therapy Injection 17:07:57 CDT CPT-J1100 Decadron 8mg (Dexamethasone) 16:55:24 CDT CPT-33077 Chest 2V Frontal and Lat 16:32:44 CDT
--- OUTSIDE RECORDS SUMMARY | 2016-11-04 23:08 | XMS REPORT | Clinical Summary ---
Author Author Admin, Dereck Organization [facility] Address Unknown Phone Unavailable Allergies, Adverse Reactions, Alerts Allergy Name Reaction Description Start Date Severity Status Provider REQUIP Unsure of reaction, states that she was in severe pain Critical Active Ahmet Crabajal MD AMITRIPTYLINE HCL Mood changes. 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 FLUTICASONE PROPIONATE HFA 20405744727 Active Renzo Thornton DO Active TROPICAMIDE 0.5 % OPHTH SOLN 1 drop PRN eye spasms TROPICAMIDE 13449457766 Active Samantha Stephan RMA Active RISPERDAL 4 MG ORAL TABS 1 tab at bedtime RISPERIDONE 11781592653 Active Samantha Stephan RMA Active LEVAQUIN 500 MG TABS 1 daily for infection LEVOFLOXACIN 08874917296 Active Suzan Boo APRN Active TESSALON PERLES 100 MG CAPS 1 three times a day as needed for cough BENZONATATE 13946426388 Active Suzan Boo APRN Active ZOFRAN 4 MG TABS 1 po q6hr PRN Nausea ONDANSETRON HCL No Longer Active Suzan Boo APRN Active FLUTICASONE PROPIONATE 50 MCG/ACT SUSP 2 sprays each nostril daily before bed. FLUTICASONE PROPIONATE 44280869817 No Longer Active Suzan Boo APRN Active ASPIRIN 325 MG ORAL TABS 1 tab q.d ASPIRIN 06583293956 No Longer Active Suzan Boo APRN Active HALOPERIDOL 10 MG ORAL TABS 1 tab q.d HALOPERIDOL 33262342677 No Longer Active Suzan Boo APRN Active GUAIFENESIN-CODEINE 100-10 MG/5ML SYRP 5ml every 4 to 6 hours as needed for cough GUAIFENESIN-CODEINE 30814387588 No Longer Active Suzan Boo APRN Active ZITHROMAX Z-EARNEST 250 MG TABS 2 today and then 1 daily for 4 days AZITHROMYCIN 18274257885 No Longer Active Suzan Boo APRN Active PREDNISONE 10 MG TABS 2 daily for 5 days then 1 daily for 5 days PREDNISONE 61166981396 Active Suzan Boo APRN Active CLONAZEPAM 1 MG ORAL TABS 1 twice a day and an additional 1 tablet every other day as needed for pseudoseizures or anxiety CLONAZEPAM 29914569375 Active Ahmet Carbajal MD Active HYDROCODONE-ACETAMINOPHEN 5-325 MG ORAL TABS 1 tab two times a day HYDROCODONE-ACETAMINOPHEN 30948900998 No Longer Active Ahmet Carbajal MD Active LAMICTAL 100 MG ORAL TABS 1 tab 2 times qd. LAMOTRIGINE 89095764658 Active Ahmet Carbajal MD Active PREDNISONE 20 MG TABS 2 daily for 5 days then 1 daily for 5 days PREDNISONE 10451408908 No Longer Active Ahmet Carbajal MD Active FLUTICASONE PROPIONATE 50 MCG/ACT SUSP 1 to 2 sprays each nostril daily for allergies FLUTICASONE PROPIONATE 26861364620 Active Tila Nicolas Active BENADRYL 25 MG CAP 4 po at bedtime for insomnia DIPHENHYDRAMINE HCL 66519814468 No Longer Active Ahmet Carbajal MD Active ADVAIR DISKUS 250-50 MCG/DOSE INH AEPB 1 puff twice a day for asthma FLUTICASONE-SALMETEROL 24325635914 No Longer Active Ahmet Carbajal MD Active KLONOPIN 1 MG ORAL TABS 1 tab po TID CLONAZEPAM 13554148262 No Longer Active Ahmet Carbajal MD Active ABILIFY MAINTENA 400 MG IM SUSR 400mg injection every 26 days ARIPIPRAZOLE 62591352842 No Longer Active Ahmet Carbajal MD Active TRAMADOL HCL 50 MG TABS 1/2-1 tab TID PRN TRAMADOL HCL 23424581930 No Longer Active Ahmet Carbajal MD Active BACTRIM DS 800-160 MG TABS 1 twice a day SULFAMETHOXAZOLE- TRIMETHOPRIM 67387724095 No Longer Active Ahmet Carbajal MD Active PROAIR HFA 108 (90 BASE) MCG/ACT AERS 2 puffs four times a day as needed 2015 ALBUTEROL SULFATE 49580641213 Active Ahmet Carbajal MD Active EQ NICOTINE 21 MG/24HR TRANS PT24 Apply daily to stop smoking NICOTINE 46383877222 Active Ahmet Carbajal MD Active MONISTAT 7 COMBO PACK WOODROW 100 & 2 MG-% (9GM) VAG KIT 1 applicatorful per vagina q pm x 7 MICONAZOLE NITRATE 09572091782 No Longer Active Ahmet Carbajal MD Active FLAGYL 500 MG TAB 1 tablet by mouth bid METRONIDAZOLE 33901854408 No Longer Active Ahmet Carbajal MD Active OXYCODONE HCL ER 10 MG ORAL T12A 1/2 tab by mouth every 4 hours prn OXYCODONE HCL 93449250948 No Longer Active Ahmet Carbajal MD Active METHYLPREDNISOLONE 4 MG ORAL TABS po daily METHYLPREDNISOLONE 04267999494 No Longer Active Ahmet Carbajal MD Active LEVOFLOXACIN 500 MG ORAL TABS po daily LEVOFLOXACIN 77352314947 No Longer Active Ahmet Carbajal MD Active VIIBRYD 10 MG ORAL TABS Take 1 tablet once a day VILAZODONE HCL 69509321104 No Longer Active Ahmet Carbajal MD Active TOPAMAX 50 MG ORAL TABS 1 tab twice daily TOPIRAMATE 44668624775 No Longer Active Ahmet Carbajal MD Active DICLOFENAC SODIUM 50 MG TBEC 1 tablet by mouth four times daily PRN Pain 2015 DICLOFENAC SODIUM 11175780441 No Longer Active Ahmet Carbajal MD Active ADZENYS XR-ODT 6.3 MG ORAL TBED 1 tab po daily for ADHD AMPHETAMINE 33387103819 No Longer Active Ahmet Carbajal MD Active CHANTIX 1 MG TABS 1 twice a day to help quit smoking VARENICLINE TARTRATE 79022658942 No Longer Active Dipika Burgos MD Active CHANTIX STARTING MONTH EARNEST 0.5 MG X 11 & 1 MG X 42 TABS take as directed 2015 VARENICLINE TARTRATE 11882472446 No Longer Active Dipika Burgos MD Active TESSALON PERLES 100 MG CAP 1 to 2 tablets by mouth 3 times daily as needed for cough BENZONATATE 25566676218 No Longer Active Luigi Martínez APRN Active IMITREX 50 MG ORAL TABS 0.5 po x 1 PRN Headache. May repeat dose x 1 in 2 hours if needed SUMATRIPTAN SUCCINATE 60923138156 Active Ahmet Carbajal MD Active HYDROCODONE-ACETAMINOPHEN 5-325 MG TABS 1 to 2 four times a day as needed for pain use until can be seen by specialist HYDROCODONE- ACETAMINOPHEN 71687345616 No Longer Active Vishal Hui MD Active PROAIR HFA 108 (90 BASE) MCG/ACT AERS 2 puffs four times a day as needed 2015 ALBUTEROL SULFATE 12519944340 No Longer Active Vishal Hui MD Active PREDNISONE 20 MG TABS 2 daily for 5 days then 1 daily for 5 days PREDNISONE 38129157600 No Longer Active Vishal Hui MD Active ZITHROMAX Z-EARNEST 250 MG TABS 2 today and then 1 daily for 4 days AZITHROMYCIN 41780313264 No Longer Active Vishal Hui MD Active DICLOFENAC POTASSIUM TABS Take 1 tablet twice a day (pt. is not sure of the dose.) DICLOFENAC POTASSIUM TABS 45113466885 No Longer Active Vishal Hui MD Active VERAPAMIL HCL ER 120 MG ORAL CR-TABS Take 1 tablet by mouth twice a day. VERAPAMIL HCL 49689099527 Active Vishal Hui MD Active FLAGYL 500 MG TAB 1 tablet by mouth bid METRONIDAZOLE 75653429697 No Longer Active Vishal Hui MD Active VALIUM 5 MG TAB Take 1-2 tablets daily DIAZEPAM 75282449895 No Longer Active Fabiola Johnson APRN Active METOPROLOL TARTRATE 25 MG ORAL TABS 1/2 tablet twice daily for heart rate and blood pressure METOPROLOL TARTRATE 78950394658 No Longer Active Fabiola Johnson APRN Active MIRALAX ORAL POWD 17GMS DAILY IN WATER POLYETHYLENE GLYCOL 3350 47804321707 Active TAMARA Casey Active MIRALAX PACK 1 po qd PRN Constipation POLYETHYLENE GLYCOL 3350 77880487036 No Longer Active Ahmet Carbajal MD Active MINIPRESS 2 MG CAPS 4 cap po at night PRAZOSIN HCL 87580986705 No Longer Active Ahmet Carbajal MD Active PIROXICAM 20 MG CAPS 1 cap po qd PRN Pain PIROXICAM 89604232162 No Longer Active Ahmet Carbajal MD Active TRAMADOL HCL 50 MG TABS 1-2 po TID PRN Pain TRAMADOL HCL 08277323315 No Longer Active Ahmet Carbajal MD Active METOPROLOL TARTRATE 50 MG TAB 1 po bid METOPROLOL TARTRATE 18584663309 No Longer Active Ahmet Carbajal MD Active ABILIFY 15 MG ORAL TABS 1 tab daily ARIPIPRAZOLE 81900211677 No Longer Active Ahmet Carbajal MD Active PROZAC 20 MG ORAL CAPS 1 tab daily FLUOXETINE HCL 54071143130 No Longer Active Ahmet Carbajal MD Active AMBIEN 5 MG ORAL TABS 1 tab at bedtime ZOLPIDEM TARTRATE 57656280199 No Longer Active Ahmet Carbajal MD Active PREDNISONE 20 MG TAB 2 tabs daily for 4 days, 1 tab daily for 4 days, 1/2 tab daily for 4 days PREDNISONE 41323658967 No Longer Active Ahmet Carbajal MD Active KEFLEX 500 MG CAP 1 po TID x 10 days CEPHALEXIN 84355923524 No Longer Active Vishal Hui MD Active SAPHRIS 5 MG SUBL 1 po bid ASENAPINE MALEATE 74030126963 No Longer Active Jillina Frazell CNC MANAGER Active LATUDA 80 MG TABS Take one by mouth daily LURASIDONE HCL 81674096143 No Longer Active Jillina Frazell CNC MANAGER Active AMLODIPINE BESYLATE 5 MG TABS 1 tablet by mouth daily AMLODIPINE BESYLATE 71992181477 No Longer Active Jillina Frazell CNC MANAGER Active AMITRIPTYLINE HCL 100 MG TAB one at hs AMITRIPTYLINE HCL 08703267399 No Longer Active Vishal Hui MD Active TRAZODONE HCL 100 MG TAB take 1 at bedtime TRAZODONE HCL 68299901210 No Longer Active Vishal Hui MD Active VYVANSE 40 MG CAPS 1 daily, LISDEXAMFETAMINE DIMESYLATE 13258042001 No Longer Active Vishal Hui MD Active IBUPROFEN 600 MG TAB 1 po TID PRN IBUPROFEN 28371998721 No Longer Active Vishal Hui MD Active PROZAC 20 MG CAP Take one by mouth daily FLUOXETINE HCL 70196716325 No Longer Active Vishal Hui MD Active BACTRIM DS 800-160 MG TABS 1 pill by mouth twice daily SULFAMETHOXAZOLE-TRIMETHOPRIM 11868206911 No Longer Active Sahara Rodriguez MD PhD Active DIFLUCAN 150 MG TAB 1 tablet by mouth daily FLUCONAZOLE 09858546666 No Longer Active Vishal Hui MD Active TIZANIDINE HCL 4 MG TABS 1 po q6hr PRN Muscle Spasm/Back Pain TIZANIDINE HCL 37225419774 Active Vishal Hui MD Active CLINDAMYCIN HCL 150 MG CAPS 1 four times a day CLINDAMYCIN HCL 59802598537 No Longer Active Neeraj Collins MD Active KEFLEX 500 MG ORAL CAPS 1 cap QID by mouth CEPHALEXIN 33113225226 No Longer Active Neeraj Collins MD Active DIFLUCAN 150 MG TABS 1 pill every other day x 2 doses FLUCONAZOLE 00726846779 No Longer Active Sahara Rodriguez MD PhD Active MELATONIN 3 MG CAPS 2 po q hs MELATONIN 68811958983 No Longer Active Sahara Rodriguez MD PhD Active MULTIVITAMINS CAPS Take one by mouth daily MULTIPLE VITAMIN 91339767280 No Longer Active Sahara Rodriguez MD PhD Active BACTRIM DS 800-160 MG TAB 1 tab by mouth twice daily TRIMETHOPRIM-SULFAMETHOXAZOLE 27624040459 No Longer Active Sahara Rodriguez MD PhD Active [facility] PROBIOTIC ORAL CHEW 2 daily po PROBIOTIC PRODUCT 62768118647 No Longer Active Sahara Rodriguez MD PhD Active BACTRIM DS 800-160 MG TABS 1 po BID x 7 days SULFAMETHOXAZOLE-TRIMETHOPRIM 96301871428 No Longer Active Vishal Hui MD Active CHANTIX STARTING MONTH EARNEST 0.5 MG X 11 & 1 MG X 42 TABS 0.5mg daily for 3 days , then 0.5mg BID for 4 days, then 1mg BID VARENICLINE TARTRATE 99654985019 No Longer Active TAMARA Gray Active VERAPAMIL HCL CR 120 MG TAB CR 1 po bid VERAPAMIL HCL 29802648058 No Longer Active Vishal Hui MD Active METOPROLOL SUCCINATE 50 MG TB24 1 tablet by mouth daily METOPROLOL SUCCINATE 41488097358 No Longer Active Vishal Hui MD Active SAPHRIS 10 MG SUBL 1 tab po bid ASENAPINE MALEATE 94801633462 No Longer Active Vishal uHi MD Active LISINOPRIL 20 MG TABS 1 tab po qd LISINOPRIL 88053190101 No Longer Active Vishal Hui MD Active LATUDA 20 MG TABS Take one by mouth daily LURASIDONE HCL 81380088624 No Longer Active Vishal Hui MD Active TRAZODONE HCL 50 MG TABS 1/2 tab po qd prn for anxiety TRAZODONE HCL 58006879515 No Longer Active Vishal Hui MD Active OMEPRAZOLE 20 MG TBEC 1 po q a.m. 30min prior to first food intake OMEPRAZOLE 49643593620 Active TAMARA Casey Active RANITIDINE HCL 150 MG CAPS 1 twice a day RANITIDINE HCL 94272298910 Active Luigi Martínez APRN Active LINZESS 290 MCG CAPS Take one by mouth daily LINACLOTIDE 88795874276 No Longer Active Vishal Hui MD Active SAPHRIS 5 MG SUBL 1 tab po qd ASENAPINE MALEATE 27510278395 No Longer Active Vishal Hui MD Active ZALEPLON 10 MG CAPS 1 cap po every other night ZALEPLON 20144611489 No Longer Active Vishal Hui MD Active LYRICA 50 MG CAPS 1 tab po TID PREGABALIN 30689388279 No Longer Active Vishal Hui MD Active LORATADINE 10 MG TABS 1 tab po qd LORATADINE 07237430401 No Longer Active Vishal Hui MD Active VERAPAMIL HCL ER 180 MG CR-TABS 1 tab po bid VERAPAMIL HCL 67694239264 No Longer Active Vishal Hui MD Active MIRALAX POWD 1 capfull once daily POLYETHYLENE GLYCOL 3350 35970235917 No Longer Active Vishal Hui MD Active PREDNISONE 20 MG TABS 1 tab po qd PREDNISONE 89599528734 No Longer Active Renzo Thornton DO Active LEVOFLOXACIN 500 MG TABS 1 tab po qd LEVOFLOXACIN 97459313566 No Longer Active Renzo Thornton DO Active BUSPIRONE HCL 15 MG TABS 1 tab po TID BUSPIRONE HCL 71414552763 No Longer Active Renzo Thornton DO Active BENZTROPINE MESYLATE 1 MG TABS 1 tab po qd BENZTROPINE MESYLATE 63288846408 No Longer Active Renzo Thornton DO Active ATENOLOL 25 MG TABS 1 tab po qd ATENOLOL 48543178899 No Longer Active Renzo Thornton DO Active ESCITALOPRAM OXALATE 20 MG TABS 1 tab po qd ESCITALOPRAM OXALATE 13427606014 No Longer Active Renzo Thornton DO Active ADVAIR DISKUS 250-50 MCG/DOSE AEPB 1 puff BID FLUTICASONE-SALMETEROL 70728263972 No Longer Active Renzo Thornton DO Active PREDNISONE 20 MG TAB 2 tabs daily for 3 days, 1 tab daily for 3 days, 1/2 tab daily for 2 days PREDNISONE 29018941617 No Longer Active Vishal Hui MD Active CEFDINIR 300 MG CAPS by mouth twice a day CEFDINIR 33503119085 No Longer Active Vishal Hui MD Active LANSOPRAZOLE 30 MG CPDR 1 cap po qd LANSOPRAZOLE 54829403882 No Longer Active Vishal Hui MD Active BACLOFEN 20 MG TABS 1 tab po tid BACLOFEN 43025131413 No Longer Active Vishal Hui MD Active ADVAIR DISKUS 250-50 MCG/DOSE AEPB 1 puff BID ADVAIR DISKUS 250-50 MCG/DOSE AEPB FLUTICASONE-SALMETEROL Inactive ESCITALOPRAM OXALATE 20 MG TABS 1 tab po qd ESCITALOPRAM OXALATE 20 MG TABS 769154 ESCITALOPRAM OXALATE Inactive ATENOLOL 25 MG TABS 1 tab po qd ATENOLOL 25 MG TABS 164375 ATENOLOL Inactive BENZTROPINE MESYLATE 1 MG TABS 1 tab po qd BENZTROPINE MESYLATE 1 MG TABS 252412 BENZTROPINE MESYLATE Inactive BUSPIRONE HCL 15 MG TABS 1 tab po TID BUSPIRONE HCL 15 MG TABS 849313 BUSPIRONE HCL Inactive LEVOFLOXACIN 500 MG TABS 1 tab po qd LEVOFLOXACIN 500 MG TABS 696597 LEVOFLOXACIN Inactive PREDNISONE 20 MG TABS 1 tab po qd PREDNISONE 20 MG TABS 850703 PREDNISONE Inactive MIRALAX POWD 1 capfull once daily MIRALAX POWD 496451 POLYETHYLENE GLYCOL 3350 Inactive VERAPAMIL HCL ER 180 MG CR-TABS 1 tab po bid VERAPAMIL HCL ER 180 MG CR-TABS VERAPAMIL HCL Inactive LORATADINE 10 MG TABS 1 tab po qd LORATADINE 10 MG TABS 247893 LORATADINE Inactive LYRICA 50 MG CAPS 1 tab po TID LYRICA 50 MG CAPS PREGABALIN Inactive ZALEPLON 10 MG CAPS 1 cap po every other night ZALEPLON 10 MG CAPS 048686 ZALEPLON Inactive SAPHRIS 5 MG SUBL 1 tab po qd SAPHRIS 5 MG SUBL ASENAPINE MALEATE Inactive TRAZODONE HCL 50 MG TABS 1/2 tab po qd prn for anxiety TRAZODONE HCL 50 MG TABS 149293 TRAZODONE HCL Inactive LATUDA 20 MG TABS Take one by mouth daily LATUDA 20 MG TABS LURASIDONE HCL Inactive LISINOPRIL 20 MG TABS 1 tab po qd LISINOPRIL 20 MG TABS 526638 LISINOPRIL Inactive SAPHRIS 10 MG SUBL 1 [...] twice daily BACTRIM DS 800-160 MG TAB 888681 TRIMETHOPRIM-SULFAMETHOXAZOLE Inactive MULTIVITAMINS CAPS Take one by mouth daily MULTIVITAMINS CAPS MULTIPLE VITAMIN Inactive MELATONIN 3 MG CAPS 2 po q hs MELATONIN 3 MG CAPS 578486 MELATONIN Inactive KEFLEX 500 MG ORAL CAPS 1 cap QID by mouth KEFLEX 500 MG ORAL CAPS 253529 CEPHALEXIN Inactive CLINDAMYCIN HCL 150 MG CAPS 1 four times a day CLINDAMYCIN HCL 150 MG CAPS 19740326 CLINDAMYCIN HCL Inactive DIFLUCAN 150 MG TAB 1 tablet by mouth daily DIFLUCAN 150 MG TAB 155936 FLUCONAZOLE Inactive PROZAC 20 MG CAP Take one by mouth daily PROZAC 20 MG CAP 390496 FLUOXETINE HCL Inactive IBUPROFEN 600 MG TAB 1 po TID PRN IBUPROFEN 600 MG TAB 645782 IBUPROFEN Inactive VYVANSE 40 MG CAPS 1 daily, VYVANSE 40 MG CAPS LISDEXAMFETAMINE DIMESYLATE Inactive TRAZODONE HCL 100 MG TAB take 1 at bedtime TRAZODONE HCL 100 MG TAB 587030 TRAZODONE HCL Inactive AMITRIPTYLINE HCL 100 MG TAB one at hs AMITRIPTYLINE HCL 100 MG TAB 212935 AMITRIPTYLINE HCL Inactive AMLODIPINE BESYLATE 5 MG TABS 1 tablet by mouth daily AMLODIPINE BESYLATE 5 MG TABS 576753 AMLODIPINE BESYLATE Inactive LATUDA 80 MG TABS Take one by mouth daily LATUDA 80 MG TABS LURASIDONE HCL Inactive SAPHRIS 5 MG SUBL 1 po bid SAPHRIS 5 MG SUBL ASENAPINE MALEATE Inactive PREDNISONE 20 MG TAB 2 tabs daily for 4 days, 1 tab daily for 4 days, 1/2 tab daily for 4 days PREDNISONE 20 MG TAB 716407 PREDNISONE Inactive AMBIEN 5 MG ORAL TABS 1 tab at bedtime AMBIEN 5 MG ORAL TABS 797167 ZOLPIDEM TARTRATE Inactive PROZAC 20 MG ORAL CAPS 1 tab daily PROZAC 20 MG ORAL CAPS 297743 FLUOXETINE HCL Inactive ABILIFY 15 MG ORAL TABS 1 tab daily ABILIFY 15 MG ORAL TABS 867706 ARIPIPRAZOLE Inactive METOPROLOL TARTRATE 50 MG TAB 1 po bid METOPROLOL TARTRATE 50 MG TAB 754427 METOPROLOL TARTRATE Inactive TRAMADOL HCL 50 MG TABS 1-2 po TID PRN Pain TRAMADOL HCL 50 MG TABS 793157 TRAMADOL HCL Inactive PIROXICAM 20 MG CAPS 1 cap po qd PRN Pain PIROXICAM 20 MG CAPS 104935 PIROXICAM Inactive MINIPRESS 2 MG CAPS 4 cap po at night MINIPRESS 2 MG CAPS 900111 PRAZOSIN HCL Inactive MIRALAX PACK 1 po qd PRN Constipation MIRALAX PACK 933892 POLYETHYLENE GLYCOL 3350 Inactive METOPROLOL TARTRATE 25 MG ORAL TABS 1/2 tablet twice daily for heart rate and blood pressure METOPROLOL TARTRATE 25 MG ORAL TABS 997432 METOPROLOL TARTRATE Inactive VALIUM 5 MG TAB Take 1-2 tablets daily VALIUM 5 MG TAB 543277 DIAZEPAM Inactive FLAGYL 500 MG TAB 1 tablet by mouth bid FLAGYL 500 MG TAB 040265 METRONIDAZOLE Inactive DICLOFENAC POTASSIUM TABS Take 1 tablet twice a day (pt. is not sure of the dose.) DICLOFENAC POTASSIUM TABS DICLOFENAC POTASSIUM TABS Inactive ZITHROMAX Z-EARNEST 250 MG TABS 2 today and then 1 daily for 4 days ZITHROMAX Z-EARNEST 250 MG TABS 8975740 AZITHROMYCIN Inactive PREDNISONE 20 MG TABS 2 daily for 5 days then 1 daily for 5 days PREDNISONE 20 MG TABS 300775 PREDNISONE Inactive PROAIR HFA 108 (90 BASE) MCG/ACT AERS 2 puffs four times a day as needed 2015 PROAIR HFA 108 (90 BASE) MCG/ACT AERS ALBUTEROL SULFATE Inactive HYDROCODONE-ACETAMINOPHEN 5-325 MG TABS 1 to 2 four times a day as needed for pain use until can be seen by specialist HYDROCODONE- ACETAMINOPHEN 5-325 MG TABS 405731 HYDROCODONE-ACETAMINOPHEN Inactive TESSALON PERLES 100 MG CAP 1 to 2 tablets by mouth 3 times daily as needed for cough TESSALON PERLES 100 MG CAP 145947 BENZONATATE Inactive CHANTIX STARTING MONTH EARNEST 0.5 [...] Pain 2015 DICLOFENAC SODIUM 50 MG TBEC 689351 DICLOFENAC SODIUM Inactive TOPAMAX 50 MG ORAL TABS 1 tab twice daily TOPAMAX 50 MG ORAL TABS 286752 TOPIRAMATE Inactive VIIBRYD 10 MG ORAL TABS Take 1 tablet once a day VIIBRYD 10 MG ORAL TABS VILAZODONE HCL Inactive LEVOFLOXACIN 500 MG ORAL TABS po daily LEVOFLOXACIN 500 MG ORAL TABS 457604 LEVOFLOXACIN Inactive METHYLPREDNISOLONE 4 MG ORAL TABS po daily METHYLPREDNISOLONE 4 MG ORAL TABS 717373 METHYLPREDNISOLONE Inactive OXYCODONE HCL ER 10 MG ORAL T12A 1/2 tab by mouth every 4 hours prn OXYCODONE HCL ER 10 MG ORAL T12A OXYCODONE HCL Inactive FLAGYL 500 MG TAB 1 tablet by mouth bid FLAGYL 500 MG TAB 482195 METRONIDAZOLE Inactive MONISTAT 7 COMBO PACK WOODROW 100 & 2 MG-% (9GM) VAG KIT 1 applicatorful per vagina q pm x 7 MONISTAT 7 COMBO PACK WOODROW 100 & 2 MG-% (9GM) VAG KIT MICONAZOLE NITRATE Inactive BACTRIM DS 800-160 MG TABS 1 twice a day BACTRIM DS 800-160 MG TABS 939114 SULFAMETHOXAZOLE-TRIMETHOPRIM Inactive TRAMADOL HCL 50 MG TABS 1/2-1 tab TID PRN TRAMADOL HCL 50 MG TABS 124863 TRAMADOL HCL Inactive ABILIFY MAINTENA 400 MG IM SUSR 400mg injection every 26 days ABILIFY MAINTENA 400 MG IM SUSR ARIPIPRAZOLE Inactive KLONOPIN 1 MG ORAL TABS 1 tab po TID KLONOPIN 1 MG ORAL TABS 336242 CLONAZEPAM Inactive ADVAIR DISKUS 250-50 MCG/DOSE INH AEPB 1 puff twice a day for asthma ADVAIR DISKUS 250-50 MCG/DOSE INH AEPB FLUTICASONE- SALMETEROL Inactive BENADRYL 25 MG CAP 4 po at bedtime for insomnia BENADRYL 25 MG CAP DIPHENHYDRAMINE HCL Inactive PREDNISONE 20 MG TABS 2 daily for 5 days then 1 daily for 5 days PREDNISONE 20 MG TABS 322294 PREDNISONE Inactive HYDROCODONE-ACETAMINOPHEN 5-325 MG ORAL TABS 1 tab two times a day HYDROCODONE-ACETAMINOPHEN 5-325 MG ORAL TABS 851178 HYDROCODONE-ACETAMINOPHEN Inactive ZITHROMAX Z-EARNEST 250 MG TABS 2 today and then 1 daily for 4 days ZITHROMAX Z-EARNEST 250 MG TABS 3165304 AZITHROMYCIN Inactive GUAIFENESIN-CODEINE 100-10 MG/5ML SYRP 5ml every 4 to 6 hours as needed for cough GUAIFENESIN-CODEINE 100-10 MG/5ML SYRP 464518 GUAIFENESIN-CODEINE Inactive HALOPERIDOL 10 MG ORAL TABS 1 tab q.d HALOPERIDOL 10 MG ORAL TABS 003829 HALOPERIDOL Inactive ASPIRIN 325 MG ORAL TABS 1 tab q.d ASPIRIN 325 MG ORAL TABS 680979 ASPIRIN Inactive FLUTICASONE PROPIONATE 50 MCG/ACT SUSP 2 sprays each nostril daily before bed. FLUTICASONE PROPIONATE 50 MCG/ACT SUSP 4478814 FLUTICASONE PROPIONATE Inactive ZOFRAN 4 MG TABS 1 po q6hr PRN Nausea ZOFRAN 4 MG TABS 772175 ONDANSETRON HCL Inactive CEFDINIR 300 MG CAPS by mouth twice a day CEFDINIR 300 MG CAPS 541718 CEFDINIR Inactive PREDNISONE 20 MG TAB 2 tabs daily for 3 days, 1 tab daily for 3 days, 1/2 tab daily for 2 days PREDNISONE 20 MG TAB 075783 PREDNISONE Inactive BACTRIM DS 800-160 MG TABS 1 po BID x 7 days BACTRIM DS 800-160 MG TABS 19820521 SULFAMETHOXAZOLE-TRIMETHOPRIM Inactive DIFLUCAN 150 MG TABS 1 pill every other day x 2 doses DIFLUCAN 150 MG TABS 249378 FLUCONAZOLE Inactive BACTRIM DS 800-160 MG TABS 1 pill by mouth twice daily BACTRIM DS 800-160 MG TABS 19820521 SULFAMETHOXAZOLE-TRIMETHOPRIM Inactive KEFLEX 500 MG CAP 1 po TID x 10 days KEFLEX 500 MG CAP 984218 CEPHALEXIN Inactive Advance Directives Directive Description Start [...] - Hematology hemoglobin, blood 13.3 g/dL 11.7-15.5 mean corpuscular hemoglobin concentration, RBC 32.8 G/DL % 32.0- 36.0 red blood cell distribution width 12.9 % 11.0-15.0 platelet count 443 THOUSAND/UL 10*3/mm3 257-039 8287/03/01 mean platelet volume 8.2 fL 7.5-12.5 hematocrit, [...] 369 10^3/MM^3 10*3/mm3 142-424 Lab Report: Chlamydia/GC APTIMA/[id number] - Lab chlamydia DNA probe NOT DETECTED NOT DETECTED Lab Report: Chlamydia/GC APTIMA/[id number] - Microbiology Neisseria gonorrhoeae DNA probe NOT DETECTED NOT DETECTED Lab Report: Chlamydia/GC [facility]TIMA/[id number], Urinalysis, Complete, with Reflex ... - Lab chlamydia DNA probe NOT DETECTED NOT DETECTED Lab Report: Chlamydia/GC APTIMA/03350, Urinalysis, Complete, with Reflex ... - Microbiology Neisseria gonorrhoeae DNA probe NOT DETECTED NOT DETECTED Lab Report: Chlamydia/GC [facility]TIM[facility]/[id number], Urinalysis, Complete, with Reflex ... - Urinalysis microalbumin/total urine volume 2 mg/L Units converted. See lab report for original value. microalbumin/creatinine ratio, urine 9 MCG/MG CREAT mg/L <30 Lab Report: Comp. Metabolic Panel - Chemistry carbon dioxide, venous blood 33.7 mmol/L 21.0-32.0 potassium, serum 5.0 mmol/L 3.5-5.2 chloride, serum 103 mmol/L 98-107 blood glucose 80 mg/dL 65-110 urea nitrogen, blood 13 mg/dL 7-18 blood glucose 95 mg/dL 65-110 chloride, serum 105 mmol/L 98-107 potassium, serum 4.0 mmol/L 3.5-5.2 carbon dioxide, venous blood 27.6 mmol/L 21.0-32.0 sodium, serum 142 mmol/L 537-770 0123/08/08 sodium, serum 140 mmol/L 257-919 0960/08/08 creatinine, serum 0.88 mg/dL 0.55-1.30 alanine aminotransferase (SGPT), serum 54 U/L -78 aspartate aminotransferase (SGOT), serum 29 U/L 15-37 calcium, serum 9.7 mg/dL 8.5-10.1 bilirubin, serum, total 0.30 mg/dL 0.00-1.00 bilirubin, serum, total 0.30 mg/dL 0.00-1.00 calcium, serum 9.4 mg/dL 8.5-10.1 aspartate aminotransferase (SGOT), serum 28 U/L 15-37 alanine aminotransferase (SGPT), serum 49 U/L -78 creatinine, serum 0.75 mg/dL 0.55-1.30 urea nitrogen, blood 8 mg/dL 7-18 Lab Report: UADIP W/MICRO, AUTO - Chemistry [...] mg/dL Encounters Code Encounter Date Provider Facility [id number] Level 3 Est. Patient 11:04:38 CDT Renzo W Norberto [facility] CPT-73093 Level 3 Est. Patient 11:15:58 [employer] AROUND Renzo Barajas Norberto [facility] CPT-74988 Level 3 Est. Patient 15:28:23 [employer] Suzan Boo [place] [facility] CPT-97849 Level 4 Est. Patient 10:20:54 PATTERNMAKER ALL AROUND Suzan Boo [facility] CPT-57558 Level 3 Est. Patient 11:47:37 PATTERNMAKER ALL AROUND Ahmet Carbajal MD [facility]-98914 Level 3 Est. Patient 10:40:11 PATTERNMAKER ALL AROUND Ahmet Carbajal MD [facility] CPT-23832 Level 3 Est. Patient 15:07:06 PATTERNMAKER ALL AROUND Neeraj Collins MD [facility] CPT-50686 Level 4 Est. Patient 14:45:00 PATTERNMAKER ALL AROUND Ahmet Carbajal MD [facility] CPT-58336 Level 3 Est. Patient 13:59:59 CDT Luigi Martínez [facility] CPT-50854 Level 3 Est. Patient 18:18:53 CDT Neeraj Collins MD [facility]-61916 Level 3 Est. Patient 15:50:44 CDT Vishal Hui MD [facility] CPT-72575 Level 3 Est. Patient 11:36:17 CDT Ahmet Carbajal MD [facility] CPT-00798 Level 3 Est. Patient 13:29:16 CDT Vishal Hui MD [facility] CPT-26253 Level 3 Est. Patient 14:27:52 CDT Neeraj Collins MD [facility] CPT-23241 Level 3 Est. Patient 08:56:03 CDT Luigi Martínez [facility] CPT-16520 Level 4 Est. Patient 12:11:48 CDT Fabiola Johnson [facility] CPT-54216 Level 3 New Patient 16:53:37 CDT Albert Caldera MD [facility] CPT-14134 Level 3 Est. Patient 11:25:49 CDT Renzo Thornton [facility] CPT-22725 Level 3 Est. Patient 15:22:01 CDT Ahmet Carbajal MD [facility] CPT-83140 Level 4 Est. Patient 09:00:51 PATTERNMAKER ALL AROUND Vishal Hui MD [facility] CPT-42544 Level 3 Est. Patient 11:37:33 PATTERNMAKER ALL AROUND Vishal Hui MD [facility] CPT-99756 Level 3 Est. Patient 08:41:09 PATTERNMAKER ALL AROUND Vishal Hui MD [facility] CPT-30838 Level 4 Est. Patient 10:19:35 PATTERNMAKER ALL AROUND Vishal Hui MD [facility] CPT-41722 Level 3 Est. Patient 13:35:45 CDT Vishal Hui MD [facility] CPT-13608 Level 4 Est. Patient 10:08:37 CDT Vishal Hui MD [facility] CPT-07654 Level 3 Est. Patient 11:22:10 CDT Vishal Hui MD [facility] CPT-40760 Level 3 Est. Patient 11:03:32 CDT Sahara Rodriguez MD, PhD [facility] CPT-52544 Level 3 Est. Patient 09:41:35 CDT Vishal Hui MD [facility] CPT-16890 Level 3 Est. Patient 12:00:41 CDT Neeraj Collins MD [facility] CPT-23063 Level 3 Est. Patient 09:16:24 CDT Vishal Hui MD [facility] CPT-12469 Level 4 Est. Patient 13:59:09 CDT Neeraj Collins MD [facility] CPT-72006 Level 3 Est. Patient 15:19:43 CDT Renzo Thornton [facility] CPT-29139 Level 3 Est. Patient 18:10:26 CDT Sahara Rodriguez MD PhD [facility] CPT-73141 Level 3 Est. Patient 14:49:50 CDT Vishal Hui MD [facility] CPT-26255 Level 4 Est. Patient 18:41:46 CDT Neeraj Collins MD [facility] CPT-46952 Level 4 Est. Patient 09:18:38 PATTERNMAKER ALL AROUND Vishal Hui MD [facility] CPT-16642 Level 3 Est. Patient 14:43:55 PATTERNMAKER ALL AROUND Vishal Hui MD [facility] CPT-52943 Level 3 Est. Patient 15:26:33 PATTERNMAKER ALL AROUND Sahara Rodriguez MD PhD [facility] CPT-25133 Level 3 Est. Patient 10:32:14 PATTERNMAKER ALL AROUND Vishal Hui MD [facility] CPT-73972 Level 3 Est. Patient 15:12:52 PATTERNMAKER ALL AROUND Vishal Hui MD [facility] CPT-21565 Level 4 Est. Patient 09:19:27 CDT Vishal Hui MD [facility] CPT-02509 Level 3 Est. Patient 15:53:00 CDT Renzo Thornton [facility] CPT-98818 Level 3 Est. Patient 15:50:30 CDT Renzo Thornton [facility] CPT-52958 Level 3 Est. Patient 16:55:24 CDT Vishal Hui MD [facility] Procedures Code Procedure Name Date Entry Date Standard Description CPT-66209 Smoking Cessation counseling 11:15:58 PATTERNMAKER ALL AROUND CPT-G0439 [facility] Annual Wellness Exam 09:30:58 PATTERNMAKER ALL AROUND CPT-11667 TSH - LAB USE ONLY 08:50:26 PATTERNMAKER ALL AROUND CPT-38908 CBC - LAB USE ONLY 08:50:26 PATTERNMAKER ALL AROUND CPT-07156 Venipuncture Draw Fee 08:50:26 PATTERNMAKER ALL AROUND CPT-63447 Abx/Therapy Injection 17:34:30 PATTERNMAKER ALL AROUND CPT-98835 Nexplanon Removal with Reinsertion 14:09:32 CDT CPT-J7307 Nexplanon (Implant) 14:09:32 CDT CPT-OV Office Visit 14:09:32 CDT CPT-62520 UA w micro - LAB USE ONLY 16:21:13 CDT CPT-41553 Wet Mount - LAB USE ONLY 16:21:13 CDT CPT-20840 First Vx - Ix admin for Medicare patients 14:37:47 CDT CPT-25547 Fluzone Preservative Free Intramuscular Suspension 14:37 :47 CDT CPT-08252 Abx/Therapy Injection 13:54:22 CDT CPT-88554 Abx/Therapy Injection 08:47:09 CDT CPT-69134 Abx/Therapy Injection 13:29:56 CDT CPT-69359 Abx/Therapy Injection 08:36:16 CDT CPT-85025 Wet Mount - LAB USE ONLY 17:44:58 CDT CPT-72689 UA w micro - LAB USE ONLY 17:44:58 CDT CPT-00965 CMP - LAB USE ONLY 17:44:58 CDT CPT-63798 Venipuncture Draw Fee 17:44:58 CDT CPT-37374 Cervical Min 4V - XRAY USE ONLY 09:01:40 CDT CPT-88347 Chest 2V Frontal and Lat - XRAY USE ONLY 11:06:31 CDT CPT-86546 EKG Trac and Interp - XRAY USE ONLY 11:31:43 CDT 08/26 CPT-J3420 Vitamin B12 1000mcg (Cyanocobalamin) 08:10:26 PATTERNMAKER ALL AROUND 04/12 CPT-07598 Abx/Therapy Injection 08:10:26 PATTERNMAKER ALL AROUND CPT-G0438 Initial Annual Wellness Exam 19:01:01 PATTERNMAKER ALL AROUND CPT-J3420 Vitamin B12 1000mcg (Cyanocobalamin) 16:57:46 CDT 08/14 CPT-40060 Recombivax HB Injection Suspension 5 MCG/0.5ML 08:37:50 PATTERNMAKER ALL AROUND CPT-40661 Immunization Single Admin 08:37:50 PATTERNMAKER ALL AROUND CPT-J3420 Vitamin B12 1000mcg (Cyanocobalamin) 08:32:16 PATTERNMAKER ALL AROUND 03/11 CPT-26256 Abx/Therapy Injection 08:32:16 PATTERNMAKER ALL AROUND CPT-83838 Chest 2V Frontal and Lat 11:46:38 PATTERNMAKER ALL AROUND CPT-18906 Venipuncture Draw Fee 09:12:45 PATTERNMAKER ALL AROUND CPT-J3420 Vitamin B12 1000mcg (Cyanocobalamin) 08:50:15 PATTERNMAKER ALL AROUND 02/08 CPT-63586 Abx/Therapy Injection 08:50:15 PATTERNMAKER ALL AROUND CPT-Cryo Cryotherapy 10:19:35 PATTERNMAKER ALL AROUND CPT-000 Give Appropriate Flu Vaccine 09:22:16 CDT CPT-J3420 Vitamin B12 1000mcg (Cyanocobalamin) 19:08:57 CDT 01/11 CPT-23343 Abx/Therapy Injection 19:08:57 CDT CPT-J3420 Vitamin B12 1000mcg (Cyanocobalamin) 08:19:08 CDT 12/11 CPT-42729 Abx/Therapy Injection 08:19:08 CDT CPT-J3420 Vitamin B12 1000mcg (Cyanocobalamin) 14:48:00 CDT 11/09 CPT-63031 Abx/Therapy Injection 14:47:59 CDT CPT-J3420 Vitamin B12 1000mcg (Cyanocobalamin) 08:34:04 CDT 10/09 CPT-14165 Abx/Therapy Injection 08:34:04 CDT CPT-J3420 Vitamin B12 1000mcg (Cyanocobalamin) 09:18:52 CDT 09/11 CPT-64083 Abx/Therapy Injection 09:18:52 CDT CPT-J3420 Vitamin B12 1000mcg (Cyanocobalamin) 08:35:44 CDT 09/04 CPT-73439 Abx/Therapy Injection 08:35:44 CDT CPT-55563 Immunization Single Admin 11:07:16 CDT CPT-44782 Hepatitis B adult IM 11:07:16 CDT CPT-J3420 Vitamin B12 1000mcg (Cyanocobalamin) 11:00:49 CDT 08/28 CPT-J1040 Depo Medrol 80 mg (Methyl Prednisolone Acetate) 11:00: 49 CDT CPT-34572 Abx/Therapy Injection 11:00:49 CDT CPT-J1040 Depo Medrol 80 mg (Methyl Prednisolone Acetate) 09:16: 23 CDT CPT-J3420 Vitamin B12 1000mcg (Cyanocobalamin) 08:27:05 CDT 08/20 CPT-27916 Abx/Therapy Injection 08:27:05 CDT CPT-00104 Recombivax HB Injection Suspension 5 MCG/0.5ML 10:00:41 CDT CPT-44307 Administration single or combination vaccine inc oral 10 :00:41 CDT CPT-73102 Sono transvag pelvis non OB uterus ovaries cervix 16:36: 57 CDT CPT-54814 LS spine comp w obliq 09:50:55 PATTERNMAKER ALL AROUND CPT-20407 Abd compl w upright 09:50:55 PATTERNMAKER ALL AROUND CPT-J1100 Decadron 4mg (Dexamethasone) 15:51:24 PATTERNMAKER ALL AROUND CPT-J1030 Depo Medrol 40 mg (Methyl Prednisolone Acetate) 15:51: 24 PATTERNMAKER ALL AROUND CPT-87633 Abx/Therapy Injection 15:51:24 PATTERNMAKER ALL AROUND CPT-J1100 Decadron 4mg (Dexamethasone) 15:26:33 PATTERNMAKER ALL AROUND CPT-J1030 Depo Medrol 40 mg (Methyl Prednisolone Acetate) 15:26: 33 PATTERNMAKER ALL AROUND CPT-72537 Sono retroperitoneal complete kidneys and bladder 17:15: 30 CDT CPT-98450 Abd compl w upright 16:09:25 CDT CPT-J1100 Decadron 8mg (Dexamethasone) 17:07:57 CDT CPT-14313 Abx/Therapy Injection 17:07:57 CDT CPT-J1100 Decadron 8mg (Dexamethasone) 16:55:24 CDT CPT-77678 Chest 2V Frontal and Lat 16:32:44 CDT
--- OUTSIDE RECORDS SUMMARY | 2016-11-04 23:11 | XMS REPORT | Clinical Summary ---
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 Juliet Kimbrough [employer] Dependence on other enabling machines and [...] Shortness of breath 786.05 Active Fabiola Johnson [employer] Shortness of breath Nocturnal hypoxia 799.02 Active Fabiola Johnson [employer] Hypoxemia Neck pain 723.1 Active Luigi Martínez [employer] Cervicalgia Vaginal discharge 623.5 Active Nereaj Collins MD Leukorrhea, not specified as infective [...] ICD-V58.32 Jim Hui MD Hot flashes ICD-627.2 iJm Hui MD Personality change ICD-301.9 Jim Hui [...] Generic Name NDC Status Provider Patient Instruction HYDROCODONE-ACETAMINOPHEN 5-325 MG TABS 1 to 2 four times a day as needed for pain use until can be seen by specialist HYDROCODONE- ACETAMINOPHEN 28471080894 Active Lynda Xiao LPN Active DICLOFENAC SODIUM 50 MG TBEC 1 tablet by mouth four times daily PRN Pain 2015 DICLOFENAC SODIUM 04297365126 Active Vishal Hui MD Active DICLOFENAC POTASSIUM TABS Take 1 tablet twice a day (pt. is not sure of the dose.) DICLOFENAC POTASSIUM TABS 53471112628 No Longer Active Vishal Hui MD Active VERAPAMIL HCL ER 120 MG ORAL CR-TABS Take 1 tablet by mouth twice a day. VERAPAMIL HCL 97556032759 Active Vishal Hui MD Active FLAGYL 500 MG TAB 1 tablet by mouth bid METRONIDAZOLE 11287387011 No Longer Active Vishal Hui MD Active ABILIFY MAINTENA 400 MG IM SUSR 400mg injection every 28 days ARIPIPRAZOLE 28511983304 Active Silvia Casey LPN Active FLUTICASONE PROPIONATE 50 MCG/ACT SUSP 2 sprays each nostril daily before bed. FLUTICASONE PROPIONATE 21262835360 Active Fabiola Johnson APRN Active ADZENYS XR-ODT 6.3 MG ORAL TBED 1 tab po daily for ADHD AMPHETAMINE 91534484555 Active Fabiola Johnson APRN Active BENADRYL 25 MG CAP 4 po at bedtime for insomnia DIPHENHYDRAMINE HCL 66785171939 Active Fabiola Johnson APRN Active KLONOPIN 1 MG ORAL TABS 1 tab po TID CLONAZEPAM 42229523318 Active Fabiola Johnson APRN Active VALIUM 5 MG TAB Take 1-2 tablets daily DIAZEPAM 59509939193 No Longer Active Fabiola Johnson APRN Active METOPROLOL TARTRATE 25 MG ORAL TABS 1/2 tablet twice daily for heart rate and blood pressure METOPROLOL TARTRATE 19633295042 No Longer Active Fabiola Johnson APRN Active MIRALAX ORAL POWD 17GMS DAILY IN WATER POLYETHYLENE GLYCOL 3350 86091389325 Active Vishal Hui MD Active VIIBRYD 10 MG ORAL TABS Take 1 tablet once a day VILAZODONE HCL 59191256856 Active Ahmet Carbajal MD Active MIRALAX PACK 1 po qd PRN Constipation POLYETHYLENE GLYCOL 3350 95510027813 No Longer Active Ahmet Carbajal MD Active MINIPRESS 2 MG CAPS 4 cap po at night PRAZOSIN HCL 48176511083 No Longer Active Ahmet Carbajal MD Active PIROXICAM 20 MG CAPS 1 cap po qd PRN Pain PIROXICAM 14685740233 No Longer Active Ahmet Carbajal MD Active TRAMADOL HCL 50 MG TABS 1-2 po TID PRN Pain TRAMADOL HCL 25336824390 No Longer Active Ahmet Carbajal MD Active METOPROLOL TARTRATE 50 MG TAB 1 po bid METOPROLOL TARTRATE 80118407111 No Longer Active Ahmet Carbajal MD Active ABILIFY 15 MG ORAL TABS 1 tab daily ARIPIPRAZOLE 29075932917 No Longer Active Ahmet Carbajal MD Active PROZAC 20 MG ORAL CAPS 1 tab daily FLUOXETINE HCL 34413853842 No Longer Active Ahmet Carbajal MD Active AMBIEN 5 MG ORAL TABS 1 tab at bedtime ZOLPIDEM TARTRATE 26411663808 No Longer Active Ahmet Carbajal MD Active PREDNISONE 20 MG TAB 2 tabs daily for 4 days, 1 tab daily for 4 days, 1/2 tab daily for 4 days PREDNISONE 52390256232 No Longer Active Ahmet Carbajal MD Active KEFLEX 500 MG CAP 1 po TID x 10 days CEPHALEXIN 50134398999 No Longer Active Vishal Hui MD Active IMITREX 50 MG ORAL TABS 1/2 tab every 6 hours prn SUMATRIPTAN SUCCINATE 95668304292 Active Jillina Frazell [employer] Active TOPAMAX 50 MG ORAL TABS 1 tab twice daily TOPIRAMATE 54003903476 Active Vishal Hui MD Active SAPHRIS 5 MG SUBL 1 po bid ASENAPINE MALEATE 99952459170 No Longer Active Jillina Frazell [employer] Active LATUDA 80 MG TABS Take one by mouth daily LURASIDONE HCL 86141035817 No Longer Active Jillina Frazell [employer] Active AMLODIPINE BESYLATE 5 MG TABS 1 tablet by mouth daily AMLODIPINE BESYLATE 18429795103 No Longer Active Jillina Fradwightl [employer] Active AMITRIPTYLINE HCL 100 MG TAB one at hs AMITRIPTYLINE HCL 55450671206 No Longer Active Vishal Hui MD Active TRAZODONE HCL 100 MG TAB take 1 at bedtime TRAZODONE HCL 48096162251 No Longer Active Vishal Hui MD Active VYVANSE 40 MG CAPS 1 daily, LISDEXAMFETAMINE DIMESYLATE 85990153462 No Longer Active Vishal Hui MD Active IBUPROFEN 600 MG TAB 1 po TID PRN IBUPROFEN 04819178097 No Longer Active Vishal Hui MD Active PROZAC 20 MG CAP Take one by mouth daily FLUOXETINE HCL 86995870141 No Longer Active Vishal Hui MD Active ZOFRAN 4 MG TABS 1 po q6hr PRN Nausea ONDANSETRON HCL Active Vishal Hui MD Active BACTRIM DS 800-160 MG TABS 1 pill by mouth twice daily SULFAMETHOXAZOLE-TRIMETHOPRIM 27987491912 No Longer Active Sahara Rodriguez MD PhD Active DIFLUCAN 150 MG TAB 1 tablet by mouth daily FLUCONAZOLE 34989949581 No Longer Active Vishal Hui MD Active TIZANIDINE HCL 4 MG TABS 1 po q6hr PRN Muscle Spasm/Back Pain TIZANIDINE HCL 90914495471 Active Vishal Hui MD Active CLINDAMYCIN HCL 150 MG CAPS 1 four times a day CLINDAMYCIN HCL 51867493911 No Longer Active Neeraj Collins MD Active KEFLEX 500 MG ORAL CAPS 1 cap QID by mouth CEPHALEXIN 42094769483 No Longer Active Neeraj Collins MD Active DIFLUCAN 150 MG TABS 1 pill every other day x 2 doses FLUCONAZOLE 20611989834 No Longer Active Sahara Rodriguez MD PhD Active MELATONIN 3 MG CAPS 2 po q hs MELATONIN 59540528368 No Longer Active Sahara Rodriguez MD PhD Active MULTIVITAMINS CAPS Take one by mouth daily MULTIPLE VITAMIN 88217266405 No Longer Active Sahara Rodriguez MD PhD Active BACTRIM DS 800-160 MG TAB 1 tab by mouth twice daily TRIMETHOPRIM-SULFAMETHOXAZOLE 63486459555 No Longer Active Sahara Rodriguez MD PhD Active [facility] PROBIOTIC ORAL CHEW 2 daily po PROBIOTIC PRODUCT 10588369021 No Longer Active Sahara Rodriguez MD PhD Active BACTRIM DS 800-160 MG TABS 1 po BID x 7 days SULFAMETHOXAZOLE-TRIMETHOPRIM 52807226165 No Longer Active Vishal Hui MD Active CHANTIX STARTING MONTH EARNEST 0.5 MG X 11 & 1 MG X 42 TABS 0.5mg daily for 3 days , then 0.5mg BID for 4 days, then 1mg BID VARENICLINE TARTRATE 41300945456 No Longer Active TAMARA Gray Active VERAPAMIL HCL CR 120 MG TAB CR 1 po bid VERAPAMIL HCL 11899662604 No Longer Active Vishal Hui MD Active METOPROLOL SUCCINATE 50 MG TB24 1 tablet by mouth daily METOPROLOL SUCCINATE 07199344499 No Longer Active Vishal Hui MD Active SAPHRIS 10 MG SUBL 1 tab po bid ASENAPINE MALEATE 10922202970 No Longer Active Vishal Hui MD Active LISINOPRIL 20 MG TABS 1 tab po qd LISINOPRIL 86506001946 No Longer Active Vishal Hui MD Active LATUDA 20 MG TABS Take one by mouth daily LURASIDONE HCL 23257489596 No Longer Active Vishal Hui MD Active TRAZODONE HCL 50 MG TABS 1/2 tab po qd prn for anxiety TRAZODONE HCL 52174053885 No Longer Active Vishal Hui MD Active OMEPRAZOLE 20 MG TBEC 1 po q a.m. 30min prior to first food intake OMEPRAZOLE 37700999795 Active Vishal Hui MD Active RANITIDINE HCL 150 MG CAPS 1 twice a day RANITIDINE HCL 58864312455 Active Luigi Martínez APRN Active LINZESS 290 MCG CAPS Take one by mouth daily LINACLOTIDE 68586198130 No Longer Active Vishal Hui MD Active SAPHRIS 5 MG SUBL 1 tab po qd ASENAPINE MALEATE 64366055291 No Longer Active Vishal Hui MD Active ZALEPLON 10 MG CAPS 1 cap po every other night ZALEPLON 09086774299 No Longer Active Vishal Hui MD Active LYRICA 50 MG CAPS 1 tab po TID PREGABALIN 10244578764 No Longer Active Vishal Hui MD Active LORATADINE 10 MG TABS 1 tab po qd LORATADINE 40998327121 No Longer Active Vishal Hui MD Active VERAPAMIL HCL ER 180 MG CR-TABS 1 tab po bid VERAPAMIL HCL 42127486251 No Longer Active Vishal Hui MD Active MIRALAX POWD 1 capfull once daily POLYETHYLENE GLYCOL 3350 49028341060 No Longer Active Vishal Hui MD Active PREDNISONE 20 MG TABS 1 tab po qd PREDNISONE 25929263295 No Longer Active Renzo Thornton DO Active LEVOFLOXACIN 500 MG TABS 1 tab po qd LEVOFLOXACIN 64755052788 No Longer Active Renzo Thornton DO Active BUSPIRONE HCL 15 MG TABS 1 tab po TID BUSPIRONE HCL 03022731513 No Longer Active Renzo Thornton DO Active BENZTROPINE MESYLATE 1 MG TABS 1 tab po qd BENZTROPINE MESYLATE 18931703234 No Longer Active Renzo Thornton DO Active ATENOLOL 25 MG TABS 1 tab po qd ATENOLOL 39712971471 No Longer Active Renzo Thornton DO Active ESCITALOPRAM OXALATE 20 MG TABS 1 tab po qd ESCITALOPRAM OXALATE 11558724190 No Longer Active Renzo Thornton DO Active ADVAIR DISKUS 250-50 MCG/DOSE AEPB 1 puff BID FLUTICASONE-SALMETEROL 71453861456 No Longer Active Renzo Thornton DO Active PREDNISONE 20 MG TAB 2 tabs daily for 3 days, 1 tab daily for 3 days, 1/2 tab daily for 2 days PREDNISONE 28886150527 No Longer Active Vishal Hui MD Active CEFDINIR 300 MG CAPS by mouth twice a day CEFDINIR 92795972501 No Longer Active Vishal Hui MD Active LANSOPRAZOLE 30 MG CPDR 1 cap po qd LANSOPRAZOLE 06617034958 No Longer Active Vishal Hui MD Active BACLOFEN 20 MG TABS 1 tab po tid BACLOFEN 45545785566 No Longer Active Vishal Hui MD Active ADVAIR DISKUS 250-50 MCG/DOSE AEPB 1 puff BID ADVAIR DISKUS 250-50 MCG/DOSE AEPB FLUTICASONE-SALMETEROL Inactive ESCITALOPRAM OXALATE 20 MG TABS 1 tab po qd ESCITALOPRAM OXALATE 20 MG TABS 730251 ESCITALOPRAM OXALATE Inactive ATENOLOL 25 MG TABS 1 tab po qd ATENOLOL 25 MG TABS 133753 ATENOLOL Inactive BENZTROPINE MESYLATE 1 MG TABS 1 tab po qd BENZTROPINE MESYLATE 1 MG TABS 816700 BENZTROPINE MESYLATE Inactive BUSPIRONE HCL 15 MG TABS 1 tab po TID BUSPIRONE HCL 15 MG TABS 537609 BUSPIRONE HCL Inactive LEVOFLOXACIN 500 MG TABS 1 tab po qd LEVOFLOXACIN 500 MG TABS 613175 LEVOFLOXACIN Inactive PREDNISONE 20 MG TABS 1 tab po qd PREDNISONE 20 MG TABS 967594 PREDNISONE Inactive MIRALAX POWD 1 capfull once daily MIRALAX POWD 418736 POLYETHYLENE GLYCOL 3350 Inactive VERAPAMIL HCL ER 180 MG CR-TABS 1 tab po bid VERAPAMIL HCL ER 180 MG CR-TABS VERAPAMIL HCL Inactive LORATADINE 10 MG TABS 1 tab po qd LORATADINE 10 MG TABS 453127 LORATADINE Inactive LYRICA 50 MG CAPS 1 tab po TID LYRICA 50 MG CAPS PREGABALIN Inactive ZALEPLON 10 MG CAPS 1 cap po every other night ZALEPLON 10 MG CAPS 527235 ZALEPLON Inactive SAPHRIS 5 MG SUBL 1 tab po qd SAPHRIS 5 MG SUBL ASENAPINE MALEATE Inactive TRAZODONE HCL 50 MG TABS 1/2 tab po qd prn for anxiety TRAZODONE HCL 50 MG TABS 815177 TRAZODONE HCL Inactive LATUDA 20 MG TABS Take one by mouth daily LATUDA 20 MG TABS LURASIDONE HCL Inactive LISINOPRIL 20 MG TABS 1 tab po qd LISINOPRIL 20 MG TABS 351219 LISINOPRIL Inactive SAPHRIS 10 MG SUBL 1 [...] twice daily BACTRIM DS 800-160 MG TAB 398052 TRIMETHOPRIM-SULFAMETHOXAZOLE Inactive MULTIVITAMINS CAPS Take one by mouth daily MULTIVITAMINS CAPS MULTIPLE VITAMIN Inactive MELATONIN 3 MG CAPS 2 po q hs MELATONIN 3 MG CAPS 404520 MELATONIN Inactive KEFLEX 500 MG ORAL CAPS 1 cap QID by mouth KEFLEX 500 MG ORAL CAPS 732780 CEPHALEXIN Inactive CLINDAMYCIN HCL 150 MG CAPS 1 four times a day CLINDAMYCIN HCL 150 MG CAPS 553434 CLINDAMYCIN HCL Inactive DIFLUCAN 150 MG TAB 1 tablet by mouth daily DIFLUCAN 150 MG TAB 757598 FLUCONAZOLE Inactive PROZAC 20 MG CAP Take one by mouth daily PROZAC 20 MG CAP 393580 FLUOXETINE HCL Inactive IBUPROFEN 600 MG TAB 1 po TID PRN IBUPROFEN 600 MG TAB IBUPROFEN Inactive VYVANSE 40 MG CAPS 1 daily, VYVANSE 40 MG CAPS LISDEXAMFETAMINE DIMESYLATE Inactive TRAZODONE HCL 100 MG TAB take 1 at bedtime TRAZODONE HCL 100 MG TAB 431149 TRAZODONE HCL Inactive AMITRIPTYLINE HCL 100 MG TAB one at hs AMITRIPTYLINE HCL 100 MG TAB 630159 AMITRIPTYLINE HCL Inactive AMLODIPINE BESYLATE 5 MG TABS 1 tablet by mouth daily AMLODIPINE BESYLATE 5 MG TABS 902414 AMLODIPINE BESYLATE Inactive LATUDA 80 MG TABS Take one by mouth daily LATUDA 80 MG TABS LURASIDONE HCL Inactive SAPHRIS 5 MG SUBL 1 po bid SAPHRIS 5 MG SUBL ASENAPINE MALEATE Inactive PREDNISONE 20 MG TAB 2 tabs daily for 4 days, 1 tab daily for 4 days, 1/2 tab daily for 4 days PREDNISONE 20 MG TAB 917536 PREDNISONE Inactive AMBIEN 5 MG ORAL TABS 1 tab at bedtime AMBIEN 5 MG ORAL TABS 559894 ZOLPIDEM TARTRATE Inactive PROZAC 20 MG ORAL CAPS 1 tab daily PROZAC 20 MG ORAL CAPS 256083 FLUOXETINE HCL Inactive ABILIFY 15 MG ORAL TABS 1 tab daily ABILIFY 15 MG ORAL TABS 672298 ARIPIPRAZOLE Inactive METOPROLOL TARTRATE 50 MG TAB 1 po bid METOPROLOL TARTRATE 50 MG TAB 667465 METOPROLOL TARTRATE Inactive TRAMADOL HCL 50 MG TABS 1-2 po TID PRN Pain TRAMADOL HCL 50 MG TABS 274942 TRAMADOL HCL Inactive PIROXICAM 20 MG CAPS 1 cap po qd PRN Pain PIROXICAM 20 MG CAPS 757572 PIROXICAM Inactive MINIPRESS 2 MG CAPS 4 cap po at night MINIPRESS 2 MG CAPS 985143 PRAZOSIN HCL Inactive MIRALAX PACK 1 po qd PRN Constipation MIRALAX PACK 320208 POLYETHYLENE GLYCOL 3350 Inactive METOPROLOL TARTRATE 25 MG ORAL TABS 1/2 tablet twice daily for heart rate and blood pressure METOPROLOL TARTRATE 25 MG ORAL TABS 775425 METOPROLOL TARTRATE Inactive VALIUM 5 MG TAB Take 1-2 tablets daily VALIUM 5 MG TAB 162647 DIAZEPAM Inactive FLAGYL 500 MG TAB 1 tablet by mouth bid FLAGYL 500 MG TAB 942905 METRONIDAZOLE Inactive DICLOFENAC POTASSIUM TABS Take 1 tablet twice a day (pt. is not sure of the dose.) DICLOFENAC POTASSIUM TABS DICLOFENAC POTASSIUM TABS Inactive CEFDINIR 300 MG CAPS by mouth twice a day CEFDINIR 300 MG CAPS 871551 CEFDINIR Inactive PREDNISONE 20 MG TAB 2 tabs daily for 3 days, 1 tab daily for 3 days, 1/2 tab daily for 2 days PREDNISONE 20 MG TAB 218110 PREDNISONE Inactive BACTRIM DS 800-160 MG TABS 1 po BID x 7 days BACTRIM DS 800-160 MG TABS 19820521 SULFAMETHOXAZOLE-TRIMETHOPRIM Inactive DIFLUCAN 150 MG TABS 1 pill every other day x 2 doses DIFLUCAN 150 MG TABS 418817 FLUCONAZOLE Inactive BACTRIM DS 800-160 MG TABS 1 pill by mouth twice daily BACTRIM DS 800-160 MG TABS 19820521 SULFAMETHOXAZOLE-TRIMETHOPRIM Inactive KEFLEX 500 MG CAP 1 po TID x 10 days KEFLEX 500 MG CAP 173237 CEPHALEXIN Inactive Advance Directives Directive Description Start [...] % 11.6-14.8 platelet count 394 10^3/MM^3 10*3/mm3 469-794 3368/01/11 leukocyte count, blood 13.8 10^3/MM^3 10*3/mm3 4.6-10.2 [...] Panel - Chemistry sodium, serum 139 mmol/L 487-805 3297/12/03 carbon dioxide, venous blood 28.5 mmol/L 21.0-32.0 [...] 5.5 % 4.3-6.0 cholesterol, serum 159 mg/dL 405-884 5005/12/03 triglyceride, serum, fasting 118 mg/dL 30-200 HDL [...] Panel - Chemistry sodium, serum 139 mmol/L 581-943 0430/12/22 carbon dioxide, venous blood 26.8 mmol/L 21.0-32.0 potassium, serum 4.2 mmol/L 3.5-5.2 chloride, serum 103 mmol/L 98-107 blood glucose 115 mg/dL 65-110 urea nitrogen, blood 20 mg/dL 7-18 creatinine, serum 0.90 mg/dL 0.55-1.30 alanine aminotransferase (SGPT), serum 38 U/L - aspartate aminotransferase (SGOT), serum 19 U/L 15-37 calcium, serum 8.6 mg/dL 8.5-10.1 bilirubin, serum, total 0.30 mg/dL 0.00-1.00 sodium, serum 139 mmol/L 137-814 7772/01/11 carbon dioxide, venous blood 26.6 mmol/L 21.0-32.0 potassium, serum 4.1 mmol/L 3.5-5.2 chloride, serum 100 mmol/L 98-107 blood glucose 86 mg/dL 65-110 urea nitrogen, blood 16 mg/dL 7-18 creatinine, serum 1.00 mg/dL 0.55-1.30 alanine aminotransferase (SGPT), serum 48 U/L aspartate aminotransferase (SGOT), serum 17 U/L 15-37 calcium, serum 9.1 mg/dL 8.5-10.1 bilirubin, serum, total 0.40 mg/dL 0.00-1.00 sodium, serum 142 mmol/L 966-721 4509/06/08 carbon dioxide, venous blood 27.6 mmol/L 21.0-32.0 potassium, serum 4.0 mmol/L 3.5-5.2 chloride, serum 105 mmol/L 98-107 blood glucose 95 mg/dL 65-110 urea nitrogen, blood 8 mg/dL 7-18 creatinine, serum 0.75 mg/dL 0.55-1.30 alanine aminotransferase (SGPT), serum 49 U/L - aspartate aminotransferase (SGOT), serum 28 U/L 15-37 calcium, serum 9.4 mg/dL 8.5-10.1 bilirubin, serum, total 0.30 mg/dL 0.00-1.00 sodium, serum 140 mmol/L 704-086 0755/08/08 carbon dioxide, venous blood 33.7 mmol/L 21.0-32.0 [...] Rate - Chemistry sodium, serum 139 mmol/L 318-083 6387/12/11 carbon dioxide, venous blood 25.4 mmol/L 21.0-32.0 [...] stimulating hormone, serum 5.8 m[iU]/mL Lab Report: MonoStemo, JUA NLUISDIP W/MICRO, AUTO - Chemistry protein, total urine [...] mg/dL Encounters Code Encounter Date Provider Facility CPT-71904 Level 3 Est. Patient 13:29:16 CDT Vishal Hui MD [facility] CPT-12097 Level 3 Est. Patient 14:27:52 CDT Neeraj Collins MD [facility] CPT-52312 Level 3 Est. Patient 08:56:03 CDT Luigi Martínez [facility] CPT-43388 Level 4 Est. Patient 12:11:48 CDT Fabiola Johnson [facility] CPT-86513 Level 3 New Patient 16:53:37 CDT Albert Caldera MD [facility] CPT-84762 Level 3 Est. Patient 11:25:49 CDT Renzo Thornton DO [facility] CPT-78837 Level 3 Est. Patient 15:22:01 CDT Ahmet Carbajal MD [facility] CPT-19480 Level 4 Est. Patient 09:00:51 [employer] Vishal Hui MD [facility] CPT-60264 Level 3 Est. Patient 11:37:33 [employer] SALES [employer]SULTANT Vishal Hui MD [facility] CPT-12235 Level 3 Est. Patient 08:41:09 [employer] SALES CONSULTANT Vishal Hui MD [facility]-24419 Level 4 Est. Patient 10:19:35 [employer] SALES [employer]SULTANT Vishal Hui MD [facility] CPT-92657 Level 3 Est. Patient 13:35:45 CDT Vihsal Hui MD [facility] CPT-42697 Level 4 Est. Patient 10:08:37 CDT Vishal Hui MD [facility] CPT-34511 Level 3 Est. Patient 11:22:10 CDT Vishal Hui MD [facility] CPT-10943 Level 3 Est. Patient 11:03:32 CDT Sahara Rodriguez MD, PhD [facility] CPT-30651 Level 3 Est. Patient 09:41:35 CDT Vishal Hui MD [facility]-96032 Level 3 Est. Patient 12:00:41 CDT Neeraj Collins MD [facility] CPT-57186 Level 3 Est. Patient 09:16:24 CDT Vishal Hui MD [facility] CPT-86956 Level 4 Est. Patient 13:59:09 CDT Neeraj Collins MD [facility] CPT-38617 Level 3 Est. Patient 15:19:43 CDT Renzo Thornton [facility] CPT-26577 Level 3 Est. Patient 18:10:26 CDT Sahara Rodriguez MD PhD [facility] CPT-42583 Level 3 Est. Patient 14:49:50 CDT Vishal Hui MD [facility] CPT-50917 Level 4 Est. Patient 18:41:46 CDT Neeraj Collins MD [facility] CPT-03562 Level 4 Est. Patient 09:18:38 [employer] SAL[employer]ANT Vishal Hui MD [facility] CPT-02597 Level 3 Est. Patient 14:43:55 [employer] SAL[employer]SULTANT Vishal Hui MD [facility] CPT-14693 Level 3 Est. Patient 15:26:33 [employer] SALES CONSULTANT Sahara Rodriguez MD [facility] CPT-84716 Level 3 Est. Patient 10:32:14 [employer] SALES [employer]SULTANT Vishal Hui MD [facility] CPT-02975 Level 3 Est. Patient 15:12:52 [employer] SALES CONSULTANT Vishal Hui MD [facility] CPT-92957 Level 4 Est. Patient 09:19:27 CDT Vishal Hui MD [facility] CPT-03032 Level 3 Est. Patient 15:53:00 CDT Renzo Thornton [facility] CPT-84252 Level 3 Est. Patient 15:50:30 CDT Renzo Thornton [facility] CPT-10992 Level 3 Est. Patient 16:55:24 CDT Vishal Hui MD [facility] Procedures Code Procedure Name Date Entry Date Standard Description CPT-29041 Abx/Therapy Injection 13:29:56 CDT CPT-14633 Abx/Therapy Injection 08:36:16 CDT CPT-00727 Wet Mount - LAB USE ONLY 17:44:58 CDT CPT-37680 UA w micro - LAB USE ONLY 17:44:58 CDT CPT-92310 CMP - LAB USE ONLY 17:44:58 CDT CPT-26453 Venipuncture Draw Fee 17:44:58 CDT CPT-49301 Cervical Min 4V - XRAY USE ONLY 09:01:40 CDT CPT-26200 Chest 2V Frontal and Lat - XRAY USE ONLY 11:06:31 CDT CPT-61045 EKG Trac and Interp - XRAY USE ONLY 11:31:43 CDT 08/26 CPT-J3420 Vitamin B12 1000mcg (Cyanocobalamin) 08:10:26 [employer] 04/12 CPT-62785 Abx/Therapy Injection 08:10:26 [employer]ANT CPT-G0438 Initial Annual Wellness Exam 19:01:01 [employer] CPT-J3420 Vitamin B12 1000mcg (Cyanocobalamin) 16:57:46 CDT 08/14 CPT-78812 Recombivax HB Injection Suspension 5 MCG/0.5ML 08:37:50 [employer] CPT-62681 Immunization Single Admin 08:37:50 [employer] CPT-J3420 Vitamin B12 1000mcg (Cyanocobalamin) 08:32:16 [employer] SALES [employer]ANT 03/11 CPT-94621 Abx/Therapy Injection 08:32:16 [employer] SAL[employer]ANT CPT-03263 Chest 2V Frontal and Lat 11:46:38 [employer] SAL[employer] CPT-30988 Venipuncture Draw Fee 09:12:45 [employer] SALES [employer]ANT CPT-J3420 Vitamin B12 1000mcg (Cyanocobalamin) 08:50:15 [employer] SALES [employer]ULTANT 02/08 CPT-32806 Abx/Therapy Injection 08:50:15 [employer] SALES [employer]ANT CPT-Cryo Cryotherapy 10:19:35 [employer] CPT-000 Give Appropriate Flu Vaccine 09:22:16 CDT CPT-J3420 Vitamin B12 1000mcg (Cyanocobalamin) 19:08:57 CDT 01/11 CPT-93846 Abx/Therapy Injection 19:08:57 CDT CPT-J3420 Vitamin B12 1000mcg (Cyanocobalamin) 08:19:08 CDT 12/11 CPT-70898 Abx/Therapy Injection 08:19:08 CDT CPT-J3420 Vitamin B12 1000mcg (Cyanocobalamin) 14:48:00 CDT 11/09 CPT-85382 Abx/Therapy Injection 14:47:59 CDT CPT-J3420 Vitamin B12 1000mcg (Cyanocobalamin) 08:34:04 CDT 10/09 CPT-84071 Abx/Therapy Injection 08:34:04 CDT CPT-J3420 Vitamin B12 1000mcg (Cyanocobalamin) 09:18:52 CDT 09/11 CPT-58645 Abx/Therapy Injection 09:18:52 CDT CPT-J3420 Vitamin B12 1000mcg (Cyanocobalamin) 08:35:44 CDT 09/04 CPT-37888 Abx/Therapy Injection 08:35:44 CDT CPT-54594 Immunization Single Admin 11:07:16 CDT CPT-83713 Hepatitis B adult IM 11:07:16 CDT CPT-J3420 Vitamin B12 1000mcg (Cyanocobalamin) 11:00:49 CDT 08/28 CPT-J1040 Depo Medrol 80 mg (Methyl Prednisolone Acetate) 11:00: 49 CDT CPT-47238 Abx/Therapy Injection 11:00:49 CDT CPT-J1040 Depo Medrol 80 mg (Methyl Prednisolone Acetate) 09:16: 23 CDT CPT-J3420 Vitamin B12 1000mcg (Cyanocobalamin) 08:27:05 CDT 08/20 CPT-24209 Abx/Therapy Injection 08:27:05 CDT CPT-32704 Recombivax HB Injection Suspension 5 MCG/0.5ML 10:00:41 CDT CPT-22728 Administration single or combination vaccine inc oral 10 :00:41 CDT CPT-25186 Sono transvag pelvis non OB uterus ovaries cervix 16:36: 57 CDT CPT-22929 LS spine comp w obliq 09:50:55 [employer] CPT-43591 Abd compl w upright 09:50:55 [employer] CPT-J1100 Decadron 4mg (Dexamethasone) 15:51:24 [employer] SALES [employer]ANT CPT-J1030 Depo Medrol 40 mg (Methyl Prednisolone Acetate) 15:51: 24 [employer] SALES [employer]ANT CPT-20860 Abx/Therapy Injection 15:51:24 [employer] SALES CONSULTANT CPT-J1100 Decadron 4mg (Dexamethasone) 15:26:33 [employer] SALES CONSULTANT CPT-J1030 Depo Medrol 40 mg (Methyl Prednisolone Acetate) 15:26: 33 [employer] SALES [employer]ANT CPT-32076 Sono retroperitoneal complete kidneys and bladder 17:15: 30 CDT CPT-95493 Abd compl w upright 16:09:25 CDT CPT-J1100 Decadron 8mg (Dexamethasone) 17:07:57 CDT CPT-33846 Abx/Therapy Injection 17:07:57 CDT CPT-J1100 Decadron 8mg (Dexamethasone) 16:55:24 CDT CPT-96747 Chest 2V Frontal and Lat 16:32:44 CDT
--- OUTSIDE RECORDS SUMMARY | 2016-11-04 23:14 | XMS REPORT | Clinical Summary ---
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 Hypoxemia Neck pain 723.1 Resolved Vishal Hui [...] Vishal Hui MD Physical examination ICD-V70.0 Inactive iVshal Hui MD Vaginitis ICD-616.10 Inactive Vishal Hui [...] each nostril daily for allergies FLUTICASONE PROPIONATE 32353200625 Active Tila Valenzuela Active GUAIFENESIN-CODEINE 100-10 MG/5ML SYRP 5ml every 4 to 6 hours as needed for cough GUAIFENESIN-CODEINE 49642349510 Active Ahmet Carbajal MD Active PREDNISONE 20 MG TABS 2 daily for 5 days then 1 daily for 5 days PREDNISONE 60228874761 Active Ahmet Carbajal MD Active LAMICTAL 100 MG ORAL TABS 1 tab q.d LAMOTRIGINE 72110663844 Active Ahmet Carbajal MD Active BENADRYL 25 MG CAP 4 po at bedtime for insomnia DIPHENHYDRAMINE HCL 56621464553 No Longer Active Ahmet Carbajal MD Active ADVAIR DISKUS 250-50 MCG/DOSE INH AEPB 1 puff twice a day for asthma FLUTICASONE-SALMETEROL 68108693149 No Longer Active Ahmet Carbajal MD Active KLONOPIN 1 MG ORAL TABS 1 tab po TID CLONAZEPAM 80728350165 No Longer Active Ahemt Carbajal MD Active ABILIFY MAINTENA 400 MG IM SUSR 400mg injection every 26 days ARIPIPRAZOLE 32833316802 No Longer Active Ahmet Carbajal MD Active HALOPERIDOL 10 MG ORAL TABS 1 tab q.d HALOPERIDOL 70075433402 Active Ahmet Carbajal MD Active ASPIRIN 325 MG ORAL TABS 1 tab q.d ASPIRIN 67149700357 Active Ahmet Carbajal MD Active HYDROCODONE-ACETAMINOPHEN 5-325 MG ORAL TABS 1 tab two times a day HYDROCODONE-ACETAMINOPHEN 24615402131 Active Ahmet Carbajal MD Active TRAMADOL HCL 50 MG TABS 1/2-1 tab TID PRN TRAMADOL HCL 19415565972 No Longer Active Ahmet Carbajal MD Active BACTRIM DS 800-160 MG TABS 1 twice a day SULFAMETHOXAZOLE- TRIMETHOPRIM 52774324446 No Longer Active Ahmet Carbajal MD Active PROAIR HFA 108 (90 BASE) MCG/ACT AERS 2 puffs four times a day as needed 2015 ALBUTEROL SULFATE 90007219165 Active Ahmet Carbajal MD Active EQ NICOTINE 21 MG/24HR TRANS PT24 Apply daily to stop smoking NICOTINE 99490715691 Active Ahmet Crabajal MD Active MONISTAT 7 COMBO PACK WOODROW 100 & 2 MG-% (9GM) VAG KIT 1 applicatorful per vagina q pm x 7 MICONAZOLE NITRATE 98716538987 No Longer Active Ahmet Carbajal MD Active FLAGYL 500 MG TAB 1 tablet by mouth bid METRONIDAZOLE 04448109524 No Longer Active Ahmet Carbajal MD Active OXYCODONE HCL ER 10 MG ORAL T12A 1/2 tab by mouth every 4 hours prn OXYCODONE HCL 31851423284 No Longer Active Ahmet Carbajal MD Active METHYLPREDNISOLONE 4 MG ORAL TABS po daily METHYLPREDNISOLONE 38562641815 No Longer Active Ahmet Carbajal MD Active LEVOFLOXACIN 500 MG ORAL TABS po daily LEVOFLOXACIN 88181723825 No Longer Active Ahmet Carbajal MD Active VIIBRYD 10 MG ORAL TABS Take 1 tablet once a day VILAZODONE HCL 19428475456 No Longer Active Ahmet Carbajal MD Active TOPAMAX 50 MG ORAL TABS 1 tab twice daily TOPIRAMATE 98508388703 No Longer Active Ahmet Carbajal MD Active DICLOFENAC SODIUM 50 MG TBEC 1 tablet by mouth four times daily PRN Pain 2015 DICLOFENAC SODIUM 91342767187 No Longer Active Ahmet Carbajal MD Active ADZENYS XR-ODT 6.3 MG ORAL TBED 1 tab po daily for ADHD AMPHETAMINE 26771281284 No Longer Active Ahmet Carbajal MD Active CHANTIX 1 MG TABS 1 twice a day to help quit smoking VARENICLINE TARTRATE 18981137398 No Longer Active Dipika Burgos MD Active CHANTIX STARTING MONTH EARNEST 0.5 MG X 11 & 1 MG X 42 TABS take as directed 2015 VARENICLINE TARTRATE 23633071194 No Longer Active Dipika Burgos MD Active TESSALON PERLES 100 MG CAP 1 to 2 tablets by mouth 3 times daily as needed for cough BENZONATATE 79194753731 No Longer Active Luigi Martínez RETAIL LOSS PREVENTION INVESTIGATOR Active IMITREX 50 MG ORAL TABS 0.5 po x 1 PRN Headache. May repeat dose x 1 in 2 hours if needed SUMATRIPTAN SUCCINATE 64137164146 Active TAMARA Casey Active HYDROCODONE-ACETAMINOPHEN 5-325 MG TABS 1 to 2 four times a day as needed for pain use until can be seen by specialist HYDROCODONE- ACETAMINOPHEN 91248104823 No Longer Active Vishal Hui MD Active PROAIR HFA 108 (90 BASE) MCG/ACT AERS 2 puffs four times a day as needed 2015 ALBUTEROL SULFATE 05175119433 No Longer Active Vishal Hui MD Active PREDNISONE 20 MG TABS 2 daily for 5 days then 1 daily for 5 days PREDNISONE 47956676203 No Longer Active Vishal Hui MD Active ZITHROMAX Z-EARNEST 250 MG TABS 2 today and then 1 daily for 4 days AZITHROMYCIN 06665779828 No Longer Active Vishal Hui MD Active DICLOFENAC POTASSIUM TABS Take 1 tablet twice a day (pt. is not sure of the dose.) DICLOFENAC POTASSIUM TABS 55050760749 No Longer Active Vishal Hui MD Active VERAPAMIL HCL ER 120 MG ORAL CR-TABS Take 1 tablet by mouth twice a day. VERAPAMIL HCL 83471115450 Active Vishal Hui MD Active FLAGYL 500 MG TAB 1 tablet by mouth bid METRONIDAZOLE 93412665060 No Longer Active Vishal Hui MD Active FLUTICASONE PROPIONATE 50 MCG/ACT SUSP 2 sprays each nostril daily before bed. FLUTICASONE PROPIONATE 64679667094 Active Fabiola Johnson APRN Active VALIUM 5 MG TAB Take 1-2 tablets daily DIAZEPAM 80123342139 No Longer Active Fabiola Johnson APRN Active METOPROLOL TARTRATE 25 MG ORAL TABS 1/2 tablet twice daily for heart rate and blood pressure METOPROLOL TARTRATE 76266471054 No Longer Active Fabiola Johnson APRN Active MIRALAX ORAL POWD 17GMS DAILY IN WATER POLYETHYLENE GLYCOL 3350 01271385213 Active Vishal Hui MD Active MIRALAX PACK 1 po qd PRN Constipation POLYETHYLENE GLYCOL 3350 74164434046 No Longer Active Ahmet Carbajal MD Active MINIPRESS 2 MG CAPS 4 cap po at night PRAZOSIN HCL 36870402784 No Longer Active Ahmet Carbajal MD Active PIROXICAM 20 MG CAPS 1 cap po qd PRN Pain PIROXICAM 36893944532 No Longer Active Ahmet Carbajal MD Active TRAMADOL HCL 50 MG TABS 1-2 po TID PRN Pain TRAMADOL HCL 09395977676 No Longer Active Ahmet Carbajal MD Active METOPROLOL TARTRATE 50 MG TAB 1 po bid METOPROLOL TARTRATE 30264100072 No Longer Active Ahmet Carbajal MD Active ABILIFY 15 MG ORAL TABS 1 tab daily ARIPIPRAZOLE 79107676234 No Longer Active Ahmet Carbajal MD Active PROZAC 20 MG ORAL CAPS 1 tab daily FLUOXETINE HCL 24277914256 No Longer Active Ahmet Carbajal MD Active AMBIEN 5 MG ORAL TABS 1 tab at bedtime ZOLPIDEM TARTRATE 91831150508 No Longer Active Ahmet Carbajal MD Active PREDNISONE 20 MG TAB 2 tabs daily for 4 days, 1 tab daily for 4 days, 1/2 tab daily for 4 days PREDNISONE 33309720617 No Longer Active Ahmet Carbajal MD Active KEFLEX 500 MG CAP 1 po TID x 10 days CEPHALEXIN 64427255095 No Longer Active Vishal Hui MD Active SAPHRIS 5 MG SUBL 1 po bid ASENAPINE MALEATE 57177261863 No Longer Active Jillina Fralebron RETAIL LOSS PREVENTION INVESTIGATOR Active LATUDA 80 MG TABS Take one by mouth daily LURASIDONE HCL 42421629476 No Longer Active Jillina Fradwightl RETAIL LOSS PREVENTION INVESTIGATOR Active AMLODIPINE BESYLATE 5 MG TABS 1 tablet by mouth daily AMLODIPINE BESYLATE 37391384061 No Longer Active Jillina Mauricio RETAIL LOSS PREVENTION INVESTIGATOR Active AMITRIPTYLINE HCL 100 MG TAB one at hs AMITRIPTYLINE HCL 33051336626 No Longer Active Vishal Hui MD Active TRAZODONE HCL 100 MG TAB take 1 at bedtime TRAZODONE HCL 28576897934 No Longer Active Vishal Hui MD Active VYVANSE 40 MG CAPS 1 daily, LISDEXAMFETAMINE DIMESYLATE 20224979961 No Longer Active Vishal Hui MD Active IBUPROFEN 600 MG TAB 1 po TID PRN IBUPROFEN 36037497337 No Longer Active Vishal Hui MD Active PROZAC 20 MG CAP Take one by mouth daily FLUOXETINE HCL 96310875955 No Longer Active Vishal Hui MD Active ZOFRAN 4 MG TABS 1 po q6hr PRN Nausea ONDANSETRON HCL Active Vishal Hui MD Active BACTRIM DS 800-160 MG TABS 1 pill by mouth twice daily SULFAMETHOXAZOLE-TRIMETHOPRIM 15630711719 No Longer Active Sahara Rodriguez MD PhD Active DIFLUCAN 150 MG TAB 1 tablet by mouth daily FLUCONAZOLE 88543296586 No Longer Active Vishal Hui MD Active TIZANIDINE HCL 4 MG TABS 1 po q6hr PRN Muscle Spasm/Back Pain TIZANIDINE HCL 37537891872 Active Vishal Hui MD Active CLINDAMYCIN HCL 150 MG CAPS 1 four times a day CLINDAMYCIN HCL 65439920669 No Longer Active Neeraj Collins MD Active KEFLEX 500 MG ORAL CAPS 1 cap QID by mouth CEPHALEXIN 87739611064 No Longer Active Neeraj Collins MD Active DIFLUCAN 150 MG TABS 1 pill every other day x 2 doses FLUCONAZOLE 51153146024 No Longer Active Sahara Rodriguez MD PhD Active MELATONIN 3 MG CAPS 2 po q hs MELATONIN 17745271418 No Longer Active Sahara Rodriguez MD PhD Active MULTIVITAMINS CAPS Take one by mouth daily MULTIPLE VITAMIN 60054588333 No Longer Active Sahara Rodriguez MD PhD Active BACTRIM DS 800-160 MG TAB 1 tab by mouth twice daily TRIMETHOPRIM-SULFAMETHOXAZOLE 14757400456 No Longer Active Sahara Rodriguez MD PhD Active [facility] PROBIOTIC ORAL CHEW 2 daily po PROBIOTIC PRODUCT 55564088356 No Longer Active Sahara Rodriguez MD PhD Active BACTRIM DS 800-160 MG TABS 1 po BID x 7 days SULFAMETHOXAZOLE-TRIMETHOPRIM 55471375474 No Longer Active Vishal Hui MD Active CHANTIX STARTING MONTH EARNEST 0.5 MG X 11 & 1 MG X 42 TABS 0.5mg daily for 3 days , then 0.5mg BID for 4 days, then 1mg BID VARENICLINE TARTRATE 16061211350 No Longer Active TAMARA Gray Active VERAPAMIL HCL CR 120 MG TAB CR 1 po bid VERAPAMIL HCL 36700939626 No Longer Active Vishal Hui MD Active METOPROLOL SUCCINATE 50 MG TB24 1 tablet by mouth daily METOPROLOL SUCCINATE 83715516591 No Longer Active Vishal Hui MD Active SAPHRIS 10 MG SUBL 1 tab po bid ASENAPINE MALEATE 49870392940 No Longer Active Vishal Hui MD Active LISINOPRIL 20 MG TABS 1 tab po qd LISINOPRIL 76678104692 No Longer Active Vishal Hui MD Active LATUDA 20 MG TABS Take one by mouth daily LURASIDONE HCL 59806922910 No Longer Active Vishal Hui MD Active TRAZODONE HCL 50 MG TABS 1/2 tab po qd prn for anxiety TRAZODONE HCL 67964965504 No Longer Active Vishal Hui MD Active OMEPRAZOLE 20 MG TBEC 1 po q a.m. 30min prior to first food intake OMEPRAZOLE 27387219219 Active Vishal Hui MD Active RANITIDINE HCL 150 MG CAPS 1 twice a day RANITIDINE HCL 49666588351 Active Jillina Mauricio RETAIL LOSS PREVENTION INVESTIGATOR Active LINZESS 290 MCG CAPS Take one by mouth daily LINACLOTIDE 40707876208 No Longer Active Vishal Hui MD Active SAPHRIS 5 MG SUBL 1 tab po qd ASENAPINE MALEATE 02819316733 No Longer Active Vishal Hui MD Active ZALEPLON 10 MG CAPS 1 cap po every other night ZALEPLON 87378182211 No Longer Active Vishal Hui MD Active LYRICA 50 MG CAPS 1 tab po TID PREGABALIN 29119473258 No Longer Active Vishal Hui MD Active LORATADINE 10 MG TABS 1 tab po qd LORATADINE 90149820216 No Longer Active Vishal Hui MD Active VERAPAMIL HCL ER 180 MG CR-TABS 1 tab po bid VERAPAMIL HCL 02870967051 No Longer Active Vishal Hui MD Active MIRALAX POWD 1 capfull once daily POLYETHYLENE GLYCOL 3350 65039528404 No Longer Active Vishal Hui MD Active PREDNISONE 20 MG TABS 1 tab po qd PREDNISONE 43066644359 No Longer Active Renzo Thornton DO Active LEVOFLOXACIN 500 MG TABS 1 tab po qd LEVOFLOXACIN 30077104039 No Longer Active Renzo Thornton DO Active BUSPIRONE HCL 15 MG TABS 1 tab po TID BUSPIRONE HCL 01310173409 No Longer Active Renzo Thornton DO Active BENZTROPINE MESYLATE 1 MG TABS 1 tab po qd BENZTROPINE MESYLATE 86655274983 No Longer Active Renzo Thornton DO Active ATENOLOL 25 MG TABS 1 tab po qd ATENOLOL 80137263964 No Longer Active Renzo Thornton DO Active ESCITALOPRAM OXALATE 20 MG TABS 1 tab po qd ESCITALOPRAM OXALATE 55987109216 No Longer Active Renzo Thornton DO Active ADVAIR DISKUS 250-50 MCG/DOSE AEPB 1 puff BID FLUTICASONE-SALMETEROL 99611484782 No Longer Active Renzo Thornton DO Active PREDNISONE 20 MG TAB 2 tabs daily for 3 days, 1 tab daily for 3 days, 1/2 tab daily for 2 days PREDNISONE 02807998322 No Longer Active Vishal Hui MD Active CEFDINIR 300 MG CAPS by mouth twice a day CEFDINIR 01029186628 No Longer Active Vishal Hui MD Active LANSOPRAZOLE 30 MG CPDR 1 cap po qd LANSOPRAZOLE 36797251548 No Longer Active Vishal Hui MD Active BACLOFEN 20 MG TABS 1 tab po tid BACLOFEN 25757847192 No Longer Active Vishal Hui MD Active ADVAIR DISKUS 250-50 MCG/DOSE AEPB 1 puff BID ADVAIR DISKUS 250-50 MCG/DOSE AEPB FLUTICASONE-SALMETEROL Inactive ESCITALOPRAM OXALATE 20 MG TABS 1 tab po qd ESCITALOPRAM OXALATE 20 MG TABS 278003 ESCITALOPRAM OXALATE Inactive ATENOLOL 25 MG TABS 1 tab po qd ATENOLOL 25 MG TABS 922782 ATENOLOL Inactive BENZTROPINE MESYLATE 1 MG TABS 1 tab po qd BENZTROPINE MESYLATE 1 MG TABS 785934 BENZTROPINE MESYLATE Inactive BUSPIRONE HCL 15 MG TABS 1 tab po TID BUSPIRONE HCL 15 MG TABS 147342 BUSPIRONE HCL Inactive LEVOFLOXACIN 500 MG TABS 1 tab po qd LEVOFLOXACIN 500 MG TABS 727069 LEVOFLOXACIN Inactive PREDNISONE 20 MG TABS 1 tab po qd PREDNISONE 20 MG TABS 302756 PREDNISONE Inactive MIRALAX POWD 1 capfull once daily MIRALAX POWD 636438 POLYETHYLENE GLYCOL 3350 Inactive VERAPAMIL HCL ER 180 MG CR-TABS 1 tab po bid VERAPAMIL HCL ER 180 MG CR-TABS VERAPAMIL HCL Inactive LORATADINE 10 MG TABS 1 tab po qd LORATADINE 10 MG TABS 990790 LORATADINE Inactive LYRICA 50 MG CAPS 1 tab po TID LYRICA 50 MG CAPS PREGABALIN Inactive ZALEPLON 10 MG CAPS 1 cap po every other night ZALEPLON 10 MG CAPS 386974 ZALEPLON Inactive SAPHRIS 5 MG SUBL 1 tab po qd SAPHRIS 5 MG SUBL ASENAPINE MALEATE Inactive TRAZODONE HCL 50 MG TABS 1/2 tab po qd prn for anxiety TRAZODONE HCL 50 MG TABS 423863 TRAZODONE HCL Inactive LATUDA 20 MG TABS Take one by mouth daily LATUDA 20 MG TABS LURASIDONE HCL Inactive LISINOPRIL 20 MG TABS 1 tab po qd LISINOPRIL 20 MG TABS 696555 LISINOPRIL Inactive SAPHRIS 10 MG SUBL 1 [...] twice daily BACTRIM DS 800-160 MG TAB 774361 TRIMETHOPRIM-SULFAMETHOXAZOLE Inactive MULTIVITAMINS CAPS Take one by mouth daily MULTIVITAMINS CAPS MULTIPLE VITAMIN Inactive MELATONIN 3 MG CAPS 2 po q hs MELATONIN 3 MG CAPS 264147 MELATONIN Inactive KEFLEX 500 MG ORAL CAPS 1 cap QID by mouth KEFLEX 500 MG ORAL CAPS 817276 CEPHALEXIN Inactive CLINDAMYCIN HCL 150 MG CAPS 1 four times a day CLINDAMYCIN HCL 150 MG CAPS 779509 CLINDAMYCIN HCL Inactive DIFLUCAN 150 MG TAB 1 tablet by mouth daily DIFLUCAN 150 MG TAB 032351 FLUCONAZOLE Inactive PROZAC 20 MG CAP Take one by mouth daily PROZAC 20 MG CAP 795634 FLUOXETINE HCL Inactive IBUPROFEN 600 MG TAB 1 po TID PRN IBUPROFEN 600 MG TAB 279641 IBUPROFEN Inactive VYVANSE 40 MG CAPS 1 daily, VYVANSE 40 MG CAPS LISDEXAMFETAMINE DIMESYLATE Inactive TRAZODONE HCL 100 MG TAB take 1 at bedtime TRAZODONE HCL 100 MG TAB 728846 TRAZODONE HCL Inactive AMITRIPTYLINE HCL 100 MG TAB one at hs AMITRIPTYLINE HCL 100 MG TAB 949991 AMITRIPTYLINE HCL Inactive AMLODIPINE BESYLATE 5 MG TABS 1 tablet by mouth daily AMLODIPINE BESYLATE 5 MG TABS 533878 AMLODIPINE BESYLATE Inactive LATUDA 80 MG TABS Take one by mouth daily LATUDA 80 MG TABS LURASIDONE HCL Inactive SAPHRIS 5 MG SUBL 1 po bid SAPHRIS 5 MG SUBL ASENAPINE MALEATE Inactive PREDNISONE 20 MG TAB 2 tabs daily for 4 days, 1 tab daily for 4 days, 1/2 tab daily for 4 days PREDNISONE 20 MG TAB 567003 PREDNISONE Inactive AMBIEN 5 MG ORAL TABS 1 tab at bedtime AMBIEN 5 MG ORAL TABS 507907 ZOLPIDEM TARTRATE Inactive PROZAC 20 MG ORAL CAPS 1 tab daily PROZAC 20 MG ORAL CAPS 970865 FLUOXETINE HCL Inactive ABILIFY 15 MG ORAL TABS 1 tab daily ABILIFY 15 MG ORAL TABS 572583 ARIPIPRAZOLE Inactive METOPROLOL TARTRATE 50 MG TAB 1 po bid METOPROLOL TARTRATE 50 MG TAB 657276 METOPROLOL TARTRATE Inactive TRAMADOL HCL 50 MG TABS 1-2 po TID PRN Pain TRAMADOL HCL 50 MG TABS 395035 TRAMADOL HCL Inactive PIROXICAM 20 MG CAPS 1 cap po qd PRN Pain PIROXICAM 20 MG CAPS 641632 PIROXICAM Inactive MINIPRESS 2 MG CAPS 4 cap po at night MINIPRESS 2 MG CAPS 680360 PRAZOSIN HCL Inactive MIRALAX PACK 1 po qd PRN Constipation MIRALAX PACK 576666 POLYETHYLENE GLYCOL 3350 Inactive METOPROLOL TARTRATE 25 MG ORAL TABS 1/2 tablet twice daily for heart rate and blood pressure METOPROLOL TARTRATE 25 MG ORAL TABS 148213 METOPROLOL TARTRATE Inactive VALIUM 5 MG TAB Take 1-2 tablets daily VALIUM 5 MG TAB 660384 DIAZEPAM Inactive FLAGYL 500 MG TAB 1 tablet by mouth bid FLAGYL 500 MG TAB 769197 METRONIDAZOLE Inactive DICLOFENAC POTASSIUM TABS Take 1 tablet twice a day (pt. is not sure of the dose.) DICLOFENAC POTASSIUM TABS DICLOFENAC POTASSIUM TABS Inactive ZITHROMAX Z-EARNEST 250 MG TABS 2 today and then 1 daily for 4 days ZITHROMAX Z-EARNEST 250 MG TABS 9498488 AZITHROMYCIN Inactive PREDNISONE 20 MG TABS 2 daily for 5 days then 1 daily for 5 days PREDNISONE 20 MG TABS 719386 PREDNISONE Inactive PROAIR HFA 108 (90 BASE) MCG/ACT AERS 2 puffs four times a day as needed 2015 PROAIR HFA 108 (90 BASE) MCG/ACT AERS ALBUTEROL SULFATE Inactive HYDROCODONE-ACETAMINOPHEN 5-325 MG TABS 1 to 2 four times a day as needed for pain use until can be seen by specialist HYDROCODONE- ACETAMINOPHEN 5-325 MG TABS 398183 HYDROCODONE-ACETAMINOPHEN Inactive TESSALON PERLES 100 MG CAP 1 to 2 tablets by mouth 3 times daily as needed for cough TESSALON PERLES 100 MG CAP 781964 BENZONATATE Inactive CHANTIX STARTING MONTH EARNEST 0.5 [...] Pain 2015 DICLOFENAC SODIUM 50 MG TBEC 978754 DICLOFENAC SODIUM Inactive TOPAMAX 50 MG ORAL TABS 1 tab twice daily TOPAMAX 50 MG ORAL TABS 283244 TOPIRAMATE Inactive VIIBRYD 10 MG ORAL TABS Take 1 tablet once a day VIIBRYD 10 MG ORAL TABS VILAZODONE HCL Inactive LEVOFLOXACIN 500 MG ORAL TABS po daily LEVOFLOXACIN 500 MG ORAL TABS 496974 LEVOFLOXACIN Inactive METHYLPREDNISOLONE 4 MG ORAL TABS po daily METHYLPREDNISOLONE 4 MG ORAL TABS 692706 METHYLPREDNISOLONE Inactive OXYCODONE HCL ER 10 MG ORAL T12A 1/2 tab by mouth every 4 hours prn OXYCODONE HCL ER 10 MG ORAL T12A OXYCODONE HCL Inactive FLAGYL 500 MG TAB 1 tablet by mouth bid FLAGYL 500 MG TAB 498642 METRONIDAZOLE Inactive MONISTAT 7 COMBO PACK WOODROW 100 & 2 MG-% (9GM) VAG KIT 1 applicatorful per vagina q pm x 7 MONISTAT 7 COMBO PACK WOODROW 100 & 2 MG-% (9GM) VAG KIT MICONAZOLE NITRATE Inactive BACTRIM DS 800-160 MG TABS 1 twice a day BACTRIM DS 800-160 MG TABS 451743 SULFAMETHOXAZOLE-TRIMETHOPRIM Inactive TRAMADOL HCL 50 MG TABS 1/2-1 tab TID PRN TRAMADOL HCL 50 MG TABS 553447 TRAMADOL HCL Inactive ABILIFY MAINTENA 400 MG IM SUSR 400mg injection every 26 days ABILIFY MAINTENA 400 MG IM SUSR ARIPIPRAZOLE Inactive KLONOPIN 1 MG ORAL TABS 1 tab po TID KLONOPIN 1 MG ORAL TABS 654200 CLONAZEPAM Inactive ADVAIR DISKUS 250-50 MCG/DOSE INH AEPB 1 puff twice a day for asthma ADVAIR DISKUS 250-50 MCG/DOSE INH AEPB FLUTICASONE- SALMETEROL Inactive BENADRYL 25 MG CAP 4 po at bedtime for insomnia BENADRYL 25 MG CAP DIPHENHYDRAMINE HCL Inactive CEFDINIR 300 MG CAPS by mouth twice a day CEFDINIR 300 MG CAPS 889091 CEFDINIR Inactive PREDNISONE 20 MG TAB 2 tabs daily for 3 days, 1 tab daily for 3 days, 1/2 tab daily for 2 days PREDNISONE 20 MG TAB 711420 PREDNISONE Inactive BACTRIM DS 800-160 MG TABS 1 po BID x 7 days BACTRIM DS 800-160 MG TABS 19820521 SULFAMETHOXAZOLE-TRIMETHOPRIM Inactive DIFLUCAN 150 MG TABS 1 pill every other day x 2 doses DIFLUCAN 150 MG TABS 486777 FLUCONAZOLE Inactive BACTRIM DS 800-160 MG TABS 1 pill by mouth twice daily BACTRIM DS 800-160 MG TABS 19820521 SULFAMETHOXAZOLE-TRIMETHOPRIM Inactive KEFLEX 500 MG CAP 1 po TID x 10 days KEFLEX 500 MG CAP 515608 CEPHALEXIN Inactive Advance Directives Directive Description Start [...] 369 10^3/MM^3 10*3/mm3 142-424 Lab Report: Chlamydia/GC [id number] - Lab chlamydia DNA probe NOT DETECTED NOT DETECTED Lab Report: Chlamydia/GC [id number] - Microbiology Neisseria gonorrhoeae DNA probe NOT DETECTED NOT DETECTED Lab Report: Comp. Metabolic Panel - Chemistry sodium, serum 142 mmol/L 080-495 0480/06/08 carbon dioxide, venous blood 27.6 mmol/L 21.0-32.0 potassium, serum 4.0 mmol/L 3.5-5.2 chloride, serum 105 mmol/L 98-107 blood glucose 95 mg/dL 65-110 urea nitrogen, blood 8 mg/dL 7-18 creatinine, serum 0.75 mg/dL 0.55-1.30 alanine aminotransferase (SGPT), serum 49 U/L 12-78 aspartate aminotransferase (SGOT), serum 28 U/L 15-37 calcium, serum 9.4 mg/dL 8.5-10.1 bilirubin, serum, total 0.30 mg/dL 0.00-1.00 sodium, serum 140 mmol/L 936-703 0573/08/08 carbon dioxide, venous blood 33.7 mmol/L 21.0-32.0 [...] mg/dL Encounters Code Encounter Date Provider Facility CPT-10964 Level 3 Est. Patient 10:40:11 COMPUTATIONAL THEORY SCIENTIST Ahmet Carbajal MD [facility] CPT-57345 Level 3 Est. Patient 15:07:06 COMPUTATIONAL THEORY SCIENTIST Neeraj Collins MD [facility] CPT-98979 Level 4 Est. Patient 14:45:00 COMPUTATIONAL THEORY SCIENTIST Ahmet Carbajal MD [facility] CPT-31003 Level 3 Est. Patient 13:59:59 CDT Luigi Martínez [facility] CPT-63110 Level 3 Est. Patient 18:18:53 CDT Neeraj Collins MD [facility] CPT-11278 Level 3 Est. Patient 15:50:44 CDT Vishal Hui MD [facility] CPT-18670 Level 3 Est. Patient 11:36:17 CDT Ahmet Carbajal MD [facility] CPT-03136 Level 3 Est. Patient 13:29:16 CDT Vishal Hui MD [facility] CPT-95714 Level 3 Est. Patient 14:27:52 CDT Neeraj Collins MD [facility] CPT-47821 Level 3 Est. Patient 08:56:03 CDT Luigi Martínez [facility] CPT-91277 Level 4 Est. Patient 12:11:48 CDT Fabiola Johnson [facility] CPT-92262 Level 3 New Patient 16:53:37 CDT Albert Caldera MD [facility] CPT-53648 Level 3 Est. Patient 11:25:49 CDT Renzo Thornton DO [facility] CPT-03435 Level 3 Est. Patient 15:22:01 CDT Ahmet Carbajal MD [facility] CPT-56170 Level 4 Est. Patient 09:00:51 COMPUTATIONAL THEORY SCIENTIST Vishal Hui MD [facility] CPT-44213 Level 3 Est. Patient 11:37:33 COMPUTATIONAL THEORY SCIENTIST Vishal Hui MD [facility] CPT-51716 Level 3 Est. Patient 08:41:09 COMPUTATIONAL THEORY SCIENTIST Vishal Hui MD [facility] CPT-32828 Level 4 Est. Patient 10:19:35 COMPUTATIONAL THEORY SCIENTIST Vishal Hui MD [facility] CPT-88973 Level 3 Est. Patient 13:35:45 CDT Vishal Hui MD [facility] CPT-21817 Level 4 Est. Patient 10:08:37 CDT Vishal Hui MD [facility] CPT-60925 Level 3 Est. Patient 11:22:10 CDT Vishal Hui MD [facility] CPT-93833 Level 3 Est. Patient 11:03:32 CDT Sahara Rodriguez MD PhD [facility] CPT-72918 Level 3 Est. Patient 09:41:35 CDT Vishal Hui MD [facility] CPT-59701 Level 3 Est. Patient 12:00:41 CDT Neeraj Collins MD [facility] CPT-31377 Level 3 Est. Patient 09:16:24 CDT Vishal Hui MD [facility] CPT-08466 Level 4 Est. Patient 13:59:09 CDT Neeraj Collins MD [facility] CPT-64635 Level 3 Est. Patient 15:19:43 CDT Renzo Thornton [facility] CPT-90077 Level 3 Est. Patient 18:10:26 CDT Sahara Rodriguez MD PhD [facility] CPT-96225 Level 3 Est. Patient 14:49:50 CDT Vishal Hui MD [facility] CPT-71574 Level 4 Est. Patient 18:41:46 CDT Neeraj Collins MD [facility] CPT-82751 Level 4 Est. Patient 09:18:38 COMPUTATIONAL THEORY SCIENTIST Vishal Hui MD [facility] CPT-83104 Level 3 Est. Patient 14:43:55 COMPUTATIONAL THEORY SCIENTIST Vishal Hui MD [facility] CPT-69961 Level 3 Est. Patient 15:26:33 COMPUTATIONAL THEORY SCIENTIST Sahara Rodriguez MD PhD [facility] CPT-51968 Level 3 Est. Patient 10:32:14 COMPUTATIONAL THEORY SCIENTIST Vishal Hui MD [facility] CPT-77495 Level 3 Est. Patient 15:12:52 COMPUTATIONAL THEORY SCIENTIST Vishal Hui MD [facility] CPT-18981 Level 4 Est. Patient 09:19:27 CDT Vishal Hui MD [facility] CPT-29959 Level 3 Est. Patient 15:53:00 CDT Renzo Thornton DO [facility] CPT-84208 Level 3 Est. Patient 15:50:30 CDT Renzo Thornton [facility] CPT-39836 Level 3 Est. Patient 16:55:24 CDT Vishal Hui MD [facility] [facility] Procedures Code Procedure Name Date Entry Date Standard Description CPT-[id number] [facility] [place] Annual Wellness Exam 09:30:58 COMPUTATIONAL THEORY SCIENTIST CPT-63370 TSH - LAB USE ONLY 08:50:26 COMPUTATIONAL THEORY SCIENTIST CPT-24831 CBC - LAB USE ONLY 08:50:26 COMPUTATIONAL THEORY SCIENTIST CPT-84309 Venipuncture Draw Fee 08:50:26 COMPUTATIONAL THEORY SCIENTIST CPT-64268 Abx/Therapy Injection 17:34:30 COMPUTATIONAL THEORY SCIENTIST CPT-15326 Nexplanon Removal with Reinsertion 14:09:32 CDT CPT-J7307 Nexplanon (Implant) 14:09:32 CDT CPT-OV Office Visit 14:09:32 CDT CPT-44056 UA w micro - LAB USE ONLY 16:21:13 CDT CPT-68131 Wet Mount - LAB USE ONLY 16:21:13 CDT CPT-19221 First Vx - Ix admin for Medicare patients 14:37:47 CDT CPT-87047 Fluzone Preservative Free Intramuscular Suspension 14:37 :47 CDT CPT-78518 Abx/Therapy Injection 13:54:22 CDT CPT-33247 Abx/Therapy Injection 08:47:09 CDT CPT-36351 Abx/Therapy Injection 13:29:56 CDT CPT-69633 Abx/Therapy Injection 08:36:16 CDT CPT-84124 Wet Mount - LAB USE ONLY 17:44:58 CDT CPT-35524 UA w micro - LAB USE ONLY 17:44:58 CDT CPT-23290 CMP - LAB USE ONLY 17:44:58 CDT CPT-29378 Venipuncture Draw Fee 17:44:58 CDT CPT-98143 Cervical Min 4V - XRAY USE ONLY 09:01:40 CDT CPT-78156 Chest 2V Frontal and Lat - XRAY USE ONLY 11:06:31 CDT CPT-90511 EKG Trac and Interp - XRAY USE ONLY 11:31:43 CDT 08/26 CPT-J3420 Vitamin B12 1000mcg (Cyanocobalamin) 08:10:26 COMPUTATIONAL THEORY SCIENTIST 04/12 CPT-37974 Abx/Therapy Injection 08:10:26 COMPUTATIONAL THEORY SCIENTIST CPT-G0438 Initial Annual Wellness Exam 19:01:01 COMPUTATIONAL THEORY SCIENTIST CPT-J3420 Vitamin B12 1000mcg (Cyanocobalamin) 16:57:46 CDT 08/14 CPT-65117 Recombivax HB Injection Suspension 5 MCG/0.5ML 08:37:50 COMPUTATIONAL THEORY SCIENTIST CPT-70965 Immunization Single Admin 08:37:50 COMPUTATIONAL THEORY SCIENTIST CPT-J3420 Vitamin B12 1000mcg (Cyanocobalamin) 08:32:16 COMPUTATIONAL THEORY SCIENTIST 03/11 CPT-57498 Abx/Therapy Injection 08:32:16 COMPUTATIONAL THEORY SCIENTIST CPT-62854 Chest 2V Frontal and Lat 11:46:38 COMPUTATIONAL THEORY SCIENTIST CPT-16339 Venipuncture Draw Fee 09:12:45 COMPUTATIONAL THEORY SCIENTIST CPT-J3420 Vitamin B12 1000mcg (Cyanocobalamin) 08:50:15 COMPUTATIONAL THEORY SCIENTIST 02/08 CPT-05477 Abx/Therapy Injection 08:50:15 COMPUTATIONAL THEORY SCIENTIST CPT-Cryo Cryotherapy 10:19:35 COMPUTATIONAL THEORY SCIENTIST CPT-000 Give Appropriate Flu Vaccine 09:22:16 CDT CPT-J3420 Vitamin B12 1000mcg (Cyanocobalamin) 19:08:57 CDT 01/11 CPT-45791 Abx/Therapy Injection 19:08:57 CDT CPT-J3420 Vitamin B12 1000mcg (Cyanocobalamin) 08:19:08 CDT 12/11 CPT-16599 Abx/Therapy Injection 08:19:08 CDT CPT-J3420 Vitamin B12 1000mcg (Cyanocobalamin) 14:48:00 CDT 11/09 CPT-22810 Abx/Therapy Injection 14:47:59 CDT CPT-J3420 Vitamin B12 1000mcg (Cyanocobalamin) 08:34:04 CDT 10/09 CPT-81769 Abx/Therapy Injection 08:34:04 CDT CPT-J3420 Vitamin B12 1000mcg (Cyanocobalamin) 09:18:52 CDT 09/11 CPT-01348 Abx/Therapy Injection 09:18:52 CDT CPT-J3420 Vitamin B12 1000mcg (Cyanocobalamin) 08:35:44 CDT 09/04 CPT-64435 Abx/Therapy Injection 08:35:44 CDT CPT-12020 Immunization Single Admin 11:07:16 CDT CPT-93580 Hepatitis B adult IM 11:07:16 CDT CPT-J3420 Vitamin B12 1000mcg (Cyanocobalamin) 11:00:49 CDT 08/28 CPT-J1040 Depo Medrol 80 mg (Methyl Prednisolone Acetate) 11:00: 49 CDT CPT-57871 Abx/Therapy Injection 11:00:49 CDT CPT-J1040 Depo Medrol 80 mg (Methyl Prednisolone Acetate) 09:16: 23 CDT CPT-J3420 Vitamin B12 1000mcg (Cyanocobalamin) 08:27:05 CDT 08/20 CPT-57826 Abx/Therapy Injection 08:27:05 CDT CPT-19936 Recombivax HB Injection Suspension 5 MCG/0.5ML 10:00:41 CDT CPT-35498 Administration single or combination vaccine inc oral 10 :00:41 CDT CPT-15114 Sono transvag pelvis non OB uterus ovaries cervix 16:36: 57 CDT CPT-51665 LS spine comp w obliq 09:50:55 COMPUTATIONAL THEORY SCIENTIST CPT-35440 Abd compl w upright 09:50:55 COMPUTATIONAL THEORY SCIENTIST CPT-J1100 Decadron 4mg (Dexamethasone) 15:51:24 COMPUTATIONAL THEORY SCIENTIST CPT-J1030 Depo Medrol 40 mg (Methyl Prednisolone Acetate) 15:51: 24 COMPUTATIONAL THEORY SCIENTIST CPT-66596 Abx/Therapy Injection 15:51:24 COMPUTATIONAL THEORY SCIENTIST CPT-J1100 Decadron 4mg (Dexamethasone) 15:26:33 COMPUTATIONAL THEORY SCIENTIST CPT-J1030 Depo Medrol 40 mg (Methyl Prednisolone Acetate) 15:26: 33 COMPUTATIONAL THEORY SCIENTIST CPT-37346 Sono retroperitoneal complete kidneys and bladder 17:15: 30 CDT CPT-84110 Abd compl w upright 16:09:25 CDT CPT-J1100 Decadron 8mg (Dexamethasone) 17:07:57 CDT CPT-45973 Abx/Therapy Injection 17:07:57 CDT CPT-J1100 Decadron 8mg (Dexamethasone) 16:55:24 CDT CPT-33560 Chest 2V Frontal and Lat 16:32:44 CDT
--- OUTSIDE RECORDS SUMMARY | 2016-11-04 23:16 | XMS REPORT | Clinical Summary ---
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 is not sure of the dose.) DICLOFENAC POTASSIUM TABS 62723507438 Active Ahmet Carbajal MD Active MIRALAX PACK 1 po qd PRN Constipation POLYETHYLENE GLYCOL 3350 33497985336 No Longer Active Ahmet Carbajal MD Active MINIPRESS 2 MG CAPS 4 cap po at night PRAZOSIN HCL 08514703998 No Longer Active Ahmet Carbajal MD Active PIROXICAM 20 MG CAPS 1 cap po qd PRN Pain PIROXICAM 32348897107 No Longer Active Ahmet Carbajal MD Active TRAMADOL HCL 50 MG TABS 1-2 po TID PRN Pain TRAMADOL HCL 49448237047 No Longer Active Ahmet Carbajal MD Active METOPROLOL TARTRATE 50 MG TAB 1 po bid METOPROLOL TARTRATE 06005685582 No Longer Active Ahmet Carbajal MD Active ABILIFY 15 MG ORAL TABS 1 tab daily ARIPIPRAZOLE 88669687599 No Longer Active Ahmet Carbajal MD Active PROZAC 20 MG ORAL CAPS 1 tab daily FLUOXETINE HCL 93567354799 No Longer Active Ahmet Carbajal MD Active AMBIEN 5 MG ORAL TABS 1 tab at bedtime ZOLPIDEM TARTRATE 70171130021 No Longer Active Ahmet Carbajal MD Active PREDNISONE 20 MG TAB 2 tabs daily for 4 days, 1 tab daily for 4 days, 1/2 tab daily for 4 days PREDNISONE 70366109462 No Longer Active Ahmet Carbajal MD Active KEFLEX 500 MG CAP 1 po TID x 10 days CEPHALEXIN 82616522488 No Longer Active Vishal Hui MD Active ABILIFY MAINTENA 400 MG IM SUSR Injection once per month ARIPIPRAZOLE 25437308628 Active Juliet RENAL DIETITIAN Active IMITREX 50 MG ORAL TABS 1/2 tab every 6 hours prn SUMATRIPTAN SUCCINATE 00466694727 Active Jillina Frazell RENAL DIETITIAN Active TOPAMAX 50 MG ORAL TABS 1 tab twice daily TOPIRAMATE 06450222661 Active Vishal Hui MD Active SAPHRIS 5 MG SUBL 1 po bid ASENAPINE MALEATE 35768773661 No Longer Active Jillina Mauricio NORIEGA Active LATUDA 80 MG TABS Take one by mouth daily LURASIDONE HCL 18211603298 No Longer Active Pacollina Mauricio NORIEGA Active AMLODIPINE BESYLATE 5 MG TABS 1 tablet by mouth daily AMLODIPINE BESYLATE 35933742194 No Longer Active Pacollina Mauricio NORIEGA Active AMITRIPTYLINE HCL 100 MG TAB one at hs AMITRIPTYLINE HCL 16092539439 No Longer Active Vishal Hui MD Active TRAZODONE HCL 100 MG TAB take 1 at bedtime TRAZODONE HCL 97350041302 No Longer Active Vishal Hui MD Active VYVANSE 40 MG CAPS 1 daily, LISDEXAMFETAMINE DIMESYLATE 06945409480 No Longer Active Vishal Hui MD Active IBUPROFEN 600 MG TAB 1 po TID PRN IBUPROFEN 94405576297 No Longer Active Vishal Hui MD Active PROZAC 20 MG CAP Take one by mouth daily FLUOXETINE HCL 03211476465 No Longer Active Vishal Hui MD Active ZOFRAN 4 MG TABS 1 po q6hr PRN Nausea ONDANSETRON HCL Active Vishal Hui MD Active BACTRIM DS 800-160 MG TABS 1 pill by mouth twice daily SULFAMETHOXAZOLE-TRIMETHOPRIM 54787055761 No Longer Active Sahara Rodriguez MD PhD Active DIFLUCAN 150 MG TAB 1 tablet by mouth daily FLUCONAZOLE 26787062496 No Longer Active Vishal Hui MD Active TIZANIDINE HCL 4 MG TABS 1 po q6hr PRN Muscle Spasm/Back Pain TIZANIDINE HCL 42773206901 Active Luigi Martínez RENAL DIETITIAN Active CLINDAMYCIN HCL 150 MG CAPS 1 four times a day CLINDAMYCIN HCL 52851686346 No Longer Active Neeraj Collins MD Active KEFLEX 500 MG ORAL CAPS 1 cap QID by mouth CEPHALEXIN 06943080906 No Longer Active Neeraj Collins MD Active DIFLUCAN 150 MG TABS 1 pill every other day x 2 doses FLUCONAZOLE 73601338570 No Longer Active Sahara Rodriguez MD PhD Active MELATONIN 3 MG CAPS 2 po q hs MELATONIN 04838911990 No Longer Active Sahara Rodriguez MD PhD Active MULTIVITAMINS CAPS Take one by mouth daily MULTIPLE VITAMIN 28740856573 No Longer Active Sahara Rodriguez MD PhD Active BACTRIM DS 800-160 MG TAB 1 tab by mouth twice daily TRIMETHOPRIM-SULFAMETHOXAZOLE 30656021330 No Longer Active Sahara Rodriguez MD PhD Active [facility] PROBIOTIC ORAL CHEW 2 daily po PROBIOTIC PRODUCT 59506157713 No Longer Active Sahara Rodriguez MD PhD Active BACTRIM DS 800-160 MG TABS 1 po BID x 7 days SULFAMETHOXAZOLE-TRIMETHOPRIM 03174307746 No Longer Active Vishal Hui MD Active CHANTIX STARTING MONTH EARNEST 0.5 MG X 11 & 1 MG X 42 TABS 0.5mg daily for 3 days , then 0.5mg BID for 4 days, then 1mg BID VARENICLINE TARTRATE 43070187103 No Longer Active Lisette Scarrow, RMA Active VERAPAMIL HCL CR 120 MG TAB CR 1 po bid VERAPAMIL HCL 09517034496 No Longer Active Vishal Hui MD Active METOPROLOL SUCCINATE 50 MG TB24 1 tablet by mouth daily METOPROLOL SUCCINATE 46607771448 No Longer Active Vishal Hui MD Active SAPHRIS 10 MG SUBL 1 tab po bid ASENAPINE MALEATE 11094175019 No Longer Active Vishal Hui MD Active LISINOPRIL 20 MG TABS 1 tab po qd LISINOPRIL 06119832798 No Longer Active Vishal Hui MD Active BENADRYL 25 MG CAP 2 po tid prn anxiety DIPHENHYDRAMINE HCL 00067894360 Active Vishal Hui MD Active LATUDA 20 MG TABS Take one by mouth daily LURASIDONE HCL 97743445327 No Longer Active Vishal Hui MD Active TRAZODONE HCL 50 MG TABS 1/2 tab po qd prn for anxiety TRAZODONE HCL 86105801276 No Longer Active Vishal Hui MD Active OMEPRAZOLE 20 MG TBEC 1 po q a.m. 30min prior to first food intake OMEPRAZOLE 87245116876 Active Vishal Hui MD Active RANITIDINE HCL 150 MG CAPS 1 twice a day RANITIDINE HCL 43043156219 Active Jioral Martínez RENAL DIETITIAN Active LINZESS 290 MCG CAPS Take one by mouth daily LINACLOTIDE 57866775651 No Longer Active Vishal Hui MD Active SAPHRIS 5 MG SUBL 1 tab po qd ASENAPINE MALEATE 42685487515 No Longer Active Vishal Hui MD Active ZALEPLON 10 MG CAPS 1 cap po every other night ZALEPLON 48063226269 No Longer Active Vishal Hui MD Active LYRICA 50 MG CAPS 1 tab po TID PREGABALIN 75845704493 No Longer Active Vishal Hui MD Active LORATADINE 10 MG TABS 1 tab po qd LORATADINE 44154171703 No Longer Active Vishal Hui MD Active VERAPAMIL HCL ER 180 MG CR-TABS 1 tab po bid VERAPAMIL HCL 64989880917 No Longer Active Vishal Hui MD Active MIRALAX POWD 1 capfull once daily POLYETHYLENE GLYCOL 3350 17496764906 No Longer Active Vishal Hui MD Active PREDNISONE 20 MG TABS 1 tab po qd PREDNISONE 36939845156 No Longer Active Renzo Thornton DO Active LEVOFLOXACIN 500 MG TABS 1 tab po qd LEVOFLOXACIN 34811825710 No Longer Active Renzo Thornton DO Active BUSPIRONE HCL 15 MG TABS 1 tab po TID BUSPIRONE HCL 55051332026 No Longer Active Renzo Thornton DO Active BENZTROPINE MESYLATE 1 MG TABS 1 tab po qd BENZTROPINE MESYLATE 92119816449 No Longer Active Renzo Thornton DO Active ATENOLOL 25 MG TABS 1 tab po qd ATENOLOL 88536588117 No Longer Active Renzo Thornton DO Active ESCITALOPRAM OXALATE 20 MG TABS 1 tab po qd ESCITALOPRAM OXALATE 71228839201 No Longer Active Renzo Thornton DO Active ADVAIR DISKUS 250-50 MCG/DOSE AEPB 1 puff BID FLUTICASONE-SALMETEROL 94283906620 No Longer Active Renzo Thornton DO Active PREDNISONE 20 MG TAB 2 tabs daily for 3 days, 1 tab daily for 3 days, 1/2 tab daily for 2 days PREDNISONE 87853868694 No Longer Active Vishal Hui MD Active CEFDINIR 300 MG CAPS by mouth twice a day CEFDINIR 20059874181 No Longer Active Vishal Hui MD Active LANSOPRAZOLE 30 MG CPDR 1 cap po qd LANSOPRAZOLE 47296103952 No Longer Active Vishal Hui MD Active BACLOFEN 20 MG TABS 1 tab po tid BACLOFEN 06608891970 No Longer Active Vishal Hui MD Active ADVAIR DISKUS 250-50 MCG/DOSE AEPB 1 puff BID ADVAIR DISKUS 250-50 MCG/DOSE AEPB FLUTICASONE-SALMETEROL Inactive ESCITALOPRAM OXALATE 20 MG TABS 1 tab po qd ESCITALOPRAM OXALATE 20 MG TABS 331017 ESCITALOPRAM OXALATE Inactive ATENOLOL 25 MG TABS 1 tab po qd ATENOLOL 25 MG TABS 037632 ATENOLOL Inactive BENZTROPINE MESYLATE 1 MG TABS 1 tab po qd BENZTROPINE MESYLATE 1 MG TABS 336897 BENZTROPINE MESYLATE Inactive BUSPIRONE HCL 15 MG TABS 1 tab po TID BUSPIRONE HCL 15 MG TABS 328216 BUSPIRONE HCL Inactive LEVOFLOXACIN 500 MG TABS 1 tab po qd LEVOFLOXACIN 500 MG TABS 530575 LEVOFLOXACIN Inactive PREDNISONE 20 MG TABS 1 tab po qd PREDNISONE 20 MG TABS 188384 PREDNISONE Inactive MIRALAX POWD 1 capfull once daily MIRALAX POWD 888316 POLYETHYLENE GLYCOL 3350 Inactive VERAPAMIL HCL ER 180 MG CR-TABS 1 tab po bid VERAPAMIL HCL ER 180 MG CR-TABS VERAPAMIL HCL Inactive LORATADINE 10 MG TABS 1 tab po qd LORATADINE 10 MG TABS 288381 LORATADINE Inactive LYRICA 50 MG CAPS 1 tab po TID LYRICA 50 MG CAPS PREGABALIN Inactive ZALEPLON 10 MG CAPS 1 cap po every other night ZALEPLON 10 MG CAPS 988536 ZALEPLON Inactive SAPHRIS 5 MG SUBL 1 tab po qd SAPHRIS 5 MG SUBL ASENAPINE MALEATE Inactive TRAZODONE HCL 50 MG TABS 1/2 tab po qd prn for anxiety TRAZODONE HCL 50 MG TABS 961103 TRAZODONE HCL Inactive LATUDA 20 MG TABS Take one by mouth daily LATUDA 20 MG TABS LURASIDONE HCL Inactive LISINOPRIL 20 MG TABS 1 tab po qd LISINOPRIL 20 MG TABS 133490 LISINOPRIL Inactive SAPHRIS 10 MG SUBL 1 [...] twice daily BACTRIM DS 800-160 MG TAB 978119 TRIMETHOPRIM-SULFAMETHOXAZOLE Inactive MULTIVITAMINS CAPS Take one by mouth daily MULTIVITAMINS CAPS MULTIPLE VITAMIN Inactive MELATONIN 3 MG CAPS 2 po q hs MELATONIN 3 MG CAPS 19950526 MELATONIN Inactive KEFLEX 500 MG ORAL CAPS 1 cap QID by mouth KEFLEX 500 MG ORAL CAPS 298460 CEPHALEXIN Inactive CLINDAMYCIN HCL 150 MG CAPS 1 four times a day CLINDAMYCIN HCL 150 MG CAPS 556882 CLINDAMYCIN HCL Inactive DIFLUCAN 150 MG TAB 1 tablet by mouth daily DIFLUCAN 150 MG TAB 077734 FLUCONAZOLE Inactive PROZAC 20 MG CAP Take one by mouth daily PROZAC 20 MG CAP 892833 FLUOXETINE HCL Inactive IBUPROFEN 600 MG TAB 1 po TID PRN IBUPROFEN 600 MG TAB 598395 IBUPROFEN Inactive VYVANSE 40 MG CAPS 1 daily, VYVANSE 40 MG CAPS LISDEXAMFETAMINE DIMESYLATE Inactive TRAZODONE HCL 100 MG TAB take 1 at bedtime TRAZODONE HCL 100 MG TAB 589107 TRAZODONE HCL Inactive AMITRIPTYLINE HCL 100 MG TAB one at hs AMITRIPTYLINE HCL 100 MG TAB 772479 AMITRIPTYLINE HCL Inactive AMLODIPINE BESYLATE 5 MG TABS 1 tablet by mouth daily AMLODIPINE BESYLATE 5 MG TABS 310214 AMLODIPINE BESYLATE Inactive LATUDA 80 MG TABS Take one by mouth daily LATUDA 80 MG TABS LURASIDONE HCL Inactive SAPHRIS 5 MG SUBL 1 po bid SAPHRIS 5 MG SUBL ASENAPINE MALEATE Inactive PREDNISONE 20 MG TAB 2 tabs daily for 4 days, 1 tab daily for 4 days, 1/2 tab daily for 4 days PREDNISONE 20 MG TAB 940125 PREDNISONE Inactive AMBIEN 5 MG ORAL TABS 1 tab at bedtime AMBIEN 5 MG ORAL TABS 703809 ZOLPIDEM TARTRATE Inactive PROZAC 20 MG ORAL CAPS 1 tab daily PROZAC 20 MG ORAL CAPS 338499 FLUOXETINE HCL Inactive ABILIFY 15 MG ORAL TABS 1 tab daily ABILIFY 15 MG ORAL TABS 099334 ARIPIPRAZOLE Inactive METOPROLOL TARTRATE 50 MG TAB 1 po bid METOPROLOL TARTRATE 50 MG TAB 287416 METOPROLOL TARTRATE Inactive TRAMADOL HCL 50 MG TABS 1-2 po TID PRN Pain TRAMADOL HCL 50 MG TABS 167736 TRAMADOL HCL Inactive PIROXICAM 20 MG CAPS 1 cap po qd PRN Pain PIROXICAM 20 MG CAPS 600294 PIROXICAM Inactive MINIPRESS 2 MG CAPS 4 cap po at night MINIPRESS 2 MG CAPS 004535 PRAZOSIN HCL Inactive MIRALAX PACK 1 po qd PRN Constipation MIRALAX PACK 863049 POLYETHYLENE GLYCOL 3350 Inactive CEFDINIR 300 MG CAPS by mouth twice a day CEFDINIR 300 MG CAPS 748725 CEFDINIR Inactive PREDNISONE 20 MG TAB 2 tabs daily for 3 days, 1 tab daily for 3 days, 1/2 tab daily for 2 days PREDNISONE 20 MG TAB 408274 PREDNISONE Inactive BACTRIM DS 800-160 MG TABS 1 po BID x 7 days BACTRIM DS 800-160 MG TABS 19820521 SULFAMETHOXAZOLE-TRIMETHOPRIM Inactive DIFLUCAN 150 MG TABS 1 pill every other day x 2 doses DIFLUCAN 150 MG TABS 147593 FLUCONAZOLE Inactive BACTRIM DS 800-160 MG TABS 1 pill by mouth twice daily BACTRIM DS 800-160 MG TABS 19820521 SULFAMETHOXAZOLE-TRIMETHOPRIM Inactive KEFLEX 500 MG CAP 1 po TID x 10 days KEFLEX 500 MG CAP 338621 CEPHALEXIN Inactive Advance Directives Directive Description Start [...] % 11.6-14.8 platelet count 394 10^3/MM^3 10*3/mm3 355-533 5189/01/11 leukocyte count, blood 13.8 10^3/MM^3 10*3/mm3 4.6-10.2 [...] Panel - Chemistry sodium, serum 139 mmol/L 905-927 1890/12/03 carbon dioxide, venous blood 28.5 mmol/L 21.0-32.0 [...] 5.5 % 4.3-6.0 cholesterol, serum 159 mg/dL 852-613 5570/12/03 triglyceride, serum, fasting 118 mg/dL 30-200 HDL [...] Panel - Chemistry sodium, serum 139 mmol/L 191-547 5583/12/22 carbon dioxide, venous blood 26.8 mmol/L 21.0-32.0 potassium, serum 4.2 mmol/L 3.5-5.2 chloride, serum 103 mmol/L 98-107 blood glucose 115 mg/dL 65-110 urea nitrogen, blood 20 mg/dL 7-18 creatinine, serum 0.90 mg/dL 0.55-1.30 alanine aminotransferase (SGPT), serum 38 U/L 12-78 aspartate aminotransferase (SGOT), serum 19 U/L 15-37 calcium, serum 8.6 mg/dL 8.5-10.1 bilirubin, serum, total 0.30 mg/dL 0.00-1.00 sodium, serum 139 mmol/L 427-508 0541/01/11 carbon dioxide, venous blood 26.6 mmol/L 21.0-32.0 potassium, serum 4.1 mmol/L 3.5-5.2 chloride, serum 100 mmol/L 98-107 blood glucose 86 mg/dL 65-110 urea nitrogen, blood 16 mg/dL 7-18 creatinine, serum 1.00 mg/dL 0.55-1.30 alanine aminotransferase (SGPT), serum 48 U/L 12-78 aspartate aminotransferase (SGOT), serum 17 U/L 15-37 calcium, serum 9.1 mg/dL 8.5-10.1 bilirubin, serum, total 0.40 mg/dL 0.00-1.00 sodium, serum 142 mmol/L 773-457 0148/06/08 carbon dioxide, venous blood 27.6 mmol/L 21.0-32.0 [...] Rate - Chemistry sodium, serum 139 mmol/L 705-942 1945/12/11 carbon dioxide, venous blood 25.4 mmol/L 21.0-32.0 [...] mg/dL Encounters Code Encounter Date Provider Facility CPT-74870 Level 3 New Patient 16:53:37 CDT Albert Caldera MD [facility] CPT-53670 Level 3 Est. Patient 11:25:49 CDT Renzo Thornton DO [facility] CPT-59958 Level 3 Est. Patient 15:22:01 CDT Ahmet Carbajal MD [facility] CPT-94971 Level 4 Est. Patient 09:00:51 LEAD [employer]GOT [employer]DER Vishal Hui MD [facility] CPT-81436 Level 3 Est. Patient 11:37:33 LEAD INGOT MOLDER Vishal Hui MD [facility] CPT-30672 Level 3 Est. Patient 08:41:09 LEAD INGOT MOLDER Vishal Hui MD [facility] CPT-04803 Level 4 Est. Patient 10:19:35 LEAD INGOT MOLDER Vishal Hui MD [facility] CPT-40058 Level 3 Est. Patient 13:35:45 CDT Vishal Hui MD [facility] CPT-82978 Level 4 Est. Patient 10:08:37 CDT Vishal Hui MD [facility] CPT-76964 Level 3 Est. Patient 11:22:10 CDT Vishal Hui MD [facility] CPT-08255 Level 3 Est. Patient 11:03:32 CDT Sahara Rodriguez MD [facility] CPT-28767 Level 3 Est. Patient 09:41:35 CDT Vishal Hui MD [facility] CPT-58712 Level 3 Est. Patient 12:00:41 CDT Neeraj Collins MD [facility] CPT-51238 Level 3 Est. Patient 09:16:24 CDT Vishal Hui MD [facility] CPT-99969 Level 4 Est. Patient 13:59:09 CDT Neeraj Collins MD [facility] CPT-46151 Level 3 Est. Patient 15:19:43 CDT Renzo Thornton DO [facility] CPT-75910 Level 3 Est. Patient 18:10:26 CDT Sahara Rodriguez MD [facility] CPT-98604 Level 3 Est. Patient 14:49:50 CDT Vishal Hui MD [facility] CPT-89667 Level 4 Est. Patient 18:41:46 CDT Neeraj Collins MD [facility] CPT-73094 Level 4 Est. Patient 09:18:38 LEAD INGOT MOLDER Vishal Hui MD [facility] CPT-84559 Level 3 Est. Patient 14:43:55 LEAD INGOT MOLDER Vishal Hui MD [facility] CPT-35753 Level 3 Est. Patient 15:26:33 LEAD INGOT MOLDER Sahara Rodriguez MD PhD [facility] CPT-49411 Level 3 Est. Patient 10:32:14 LEAD INGOT MOLDER Vishal Hui MD [facility] CPT-86907 Level 3 Est. Patient 15:12:52 LEAD INGOT MOLDER Vishal Hui MD [facility] CPT-40565 Level 4 Est. Patient 09:19:27 CDT Vishal Hui MD [facility] CPT-35991 Level 3 Est. Patient 15:53:00 CDT Renzo Thornton [facility] CPT-02239 Level 3 Est. Patient 15:50:30 CDT Renzo Thornton [facility] CPT-68632 Level 3 Est. Patient 16:55:24 CDT Vishal Hui MD [facility] Procedures Code Procedure Name Date Entry Date Standard Description CPT-25350 Chest 2V Frontal and Lat - XRAY USE ONLY 11:06:31 CDT CPT-83793 EKG Trac and Interp - XRAY USE ONLY 11:31:43 CDT 08/26 CPT-J3420 Vitamin B12 1000mcg (Cyanocobalamin) 08:10:26 LEAD [employer]GOT M[employer]DER 04/12 CPT-14527 Abx/Therapy Injection 08:10:26 LEAD INGOT M[employer]DER CPT-G0438 Initial Annual Wellness Exam 19:01:01 LEAD INGOT M[employer] CPT-J3420 Vitamin B12 1000mcg (Cyanocobalamin) 16:57:46 CDT 08/14 CPT-87905 Recombivax HB Injection Suspension 5 MCG/0.5ML 08:37:50 LEAD [employer]GOT MOLDER CPT-76853 Immunization Single Admin 08:37:50 LEAD [employer] M[employer] CPT-J3420 Vitamin B12 1000mcg (Cyanocobalamin) 08:32:16 LEAD INGOT MOLDER 03/11 CPT-81078 Abx/Therapy Injection 08:32:16 LEAD INGOT MOLDER CPT-82730 Chest 2V Frontal and Lat 11:46:38 LEAD INGOT MOLDER CPT-52300 Venipuncture Draw Fee 09:12:45 LEAD INGOT MOLDER CPT-J3420 Vitamin B12 1000mcg (Cyanocobalamin) 08:50:15 LEAD INGOT MOLDER 02/08 CPT-39001 Abx/Therapy Injection 08:50:15 LEAD INGOT MOLDER CPT-Cryo Cryotherapy 10:19:35 LEAD INGOT MOLDER CPT-000 Give Appropriate Flu Vaccine 09:22:16 CDT CPT-J3420 Vitamin B12 1000mcg (Cyanocobalamin) 19:08:57 CDT 01/11 CPT-35056 Abx/Therapy Injection 19:08:57 CDT CPT-J3420 Vitamin B12 1000mcg (Cyanocobalamin) 08:19:08 CDT 12/11 CPT-25464 Abx/Therapy Injection 08:19:08 CDT CPT-J3420 Vitamin B12 1000mcg (Cyanocobalamin) 14:48:00 CDT 11/09 CPT-22196 Abx/Therapy Injection 14:47:59 CDT CPT-J3420 Vitamin B12 1000mcg (Cyanocobalamin) 08:34:04 CDT 10/09 CPT-99680 Abx/Therapy Injection 08:34:04 CDT CPT-J3420 Vitamin B12 1000mcg (Cyanocobalamin) 09:18:52 CDT 09/11 CPT-58292 Abx/Therapy Injection 09:18:52 CDT CPT-J3420 Vitamin B12 1000mcg (Cyanocobalamin) 08:35:44 CDT 09/04 CPT-06628 Abx/Therapy Injection 08:35:44 CDT CPT-27926 Immunization Single Admin 11:07:16 CDT CPT-66419 Hepatitis B adult IM 11:07:16 CDT CPT-J3420 Vitamin B12 1000mcg (Cyanocobalamin) 11:00:49 CDT 08/28 CPT-J1040 Depo Medrol 80 mg (Methyl Prednisolone Acetate) 11:00: 49 CDT CPT-59823 Abx/Therapy Injection 11:00:49 CDT CPT-J1040 Depo Medrol 80 mg (Methyl Prednisolone Acetate) 09:16: 23 CDT CPT-J3420 Vitamin B12 1000mcg (Cyanocobalamin) 08:27:05 CDT 08/20 CPT-41937 Abx/Therapy Injection 08:27:05 CDT CPT-45461 Recombivax HB Injection Suspension 5 MCG/0.5ML 10:00:41 CDT CPT-76299 Administration single or combination vaccine inc oral 10 :00:41 CDT CPT-38141 Sono transvag pelvis non OB uterus ovaries cervix 16:36: 57 CDT CPT-44568 LS spine comp w obliq 09:50:55 [employer] CPT-45611 Abd compl w upright 09:50:55 LEAD INGOT MOLDER CPT-J1100 Decadron 4mg (Dexamethasone) 15:51:24 LEAD [employer]GOT MOLDER CPT-J1030 Depo Medrol 40 mg (Methyl Prednisolone Acetate) 15:51: 24 LEAD INGOT MOLDER CPT-01810 Abx/Therapy Injection 15:51:24 LEAD INGOT MOLDER CPT-J1100 Decadron 4mg (Dexamethasone) 15:26:33 LEAD INGOT MOLDER CPT-J1030 Depo Medrol 40 mg (Methyl Prednisolone Acetate) 15:26: 33 LEAD [employer]GOT MOLDER CPT-76168 Sono retroperitoneal complete kidneys and bladder 17:15: 30 CDT CPT-53592 Abd compl w upright 16:09:25 CDT CPT-J1100 Decadron 8mg (Dexamethasone) 17:07:57 CDT CPT-06653 Abx/Therapy Injection 17:07:57 CDT CPT-J1100 Decadron 8mg (Dexamethasone) 16:55:24 CDT CPT-21415 Chest 2V Frontal and Lat 16:32:44 CDT
--- OUTSIDE RECORDS SUMMARY | 2016-11-04 23:19 | XMS REPORT | Clinical Summary ---
Author Author Admin, FLOR Organization [facility] Address Unknown Phone Unavailable Allergies, Adverse Reactions, [...] sites Morbid obesity 278.01 Active Juliet Kimbrough MARKETING CONTENT COORDINATOR Morbid obesity 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 Active [...] breath Nocturnal hypoxia 799.02 Active Fabiola Johnson MARKETING CONTENT COORDINATOR Hypoxemia Neck pain 723.1 Resolved Vishal Hui [...] times daily as needed for cough BENZONATATE 83686742572 No Longer Active Luigi Martínez APRN Active KENN MAINTENA 400 MG IM SUSR 400mg injection every 26 days ARIPIPRAZOLE 00429913101 Active Silvia Cedeno Carmela GAS SCRUBBER OPERATOR Active IMITREX 50 MG ORAL TABS 0.5 po x 1 PRN Headache. May repeat dose x 1 in 2 hours if needed SUMATRIPTAN SUCCINATE 57749127243 Active Vishal Hui MD Active OXYCODONE HCL ER 10 MG ORAL T12A 1/2 tab by mouth every 4 hours prn OXYCODONE HCL 56147825153 Active Neeraj Collins MD Active METHYLPREDNISOLONE 4 MG ORAL TABS po daily METHYLPREDNISOLONE 89197415616 Active Vishal Hui MD Active LEVOFLOXACIN 500 MG ORAL TABS po daily LEVOFLOXACIN 38382538179 Active Vishal Hui MD Active CHANTIX STARTING MONTH EARNEST 0.5 MG X 11 & 1 MG X 42 TABS take as directed 2015 VARENICLINE TARTRATE 68833597143 Active Ahmet Carbajal MD Active CHANTIX 1 MG TABS 1 twice a day to help quit smoking VARENICLINE TARTRATE 01381177941 Active Ahmet Carbajal MD Active HYDROCODONE-ACETAMINOPHEN 5-325 MG TABS 1 to 2 four times a day as needed for pain use until can be seen by specialist HYDROCODONE- ACETAMINOPHEN 70734890958 No Longer Active Vishal Hui MD Active PROAIR HFA 108 (90 BASE) MCG/ACT AERS 2 puffs four times a day as needed 2015 ALBUTEROL SULFATE 02188448988 No Longer Active Vishal Hui MD Active PREDNISONE 20 MG TABS 2 daily for 5 days then 1 daily for 5 days PREDNISONE 82784280838 No Longer Active Vishal Hui MD Active ZITHROMAX Z-EARNEST 250 MG TABS 2 today and then 1 daily for 4 days AZITHROMYCIN 89859055565 No Longer Active Vishal Hui MD Active DICLOFENAC SODIUM 50 MG TBEC 1 tablet by mouth four times daily PRN Pain 2015 DICLOFENAC SODIUM 47372706620 Active Vishal Hui MD Active DICLOFENAC POTASSIUM TABS Take 1 tablet twice a day (pt. is not sure of the dose.) DICLOFENAC POTASSIUM TABS 55002426203 No Longer Active Vishal Hui MD Active VERAPAMIL HCL ER 120 MG ORAL CR-TABS Take 1 tablet by mouth twice a day. VERAPAMIL HCL 82181481530 Active Vishal Hui MD Active FLAGYL 500 MG TAB 1 tablet by mouth bid METRONIDAZOLE 01036437523 No Longer Active Vishal Hui MD Active FLUTICASONE PROPIONATE 50 MCG/ACT SUSP 2 sprays each nostril daily before bed. FLUTICASONE PROPIONATE 74702902677 Active Fabiola Johnson APRN Active ADZENYS XR-ODT 6.3 MG ORAL TBED 1 tab po daily for ADHD AMPHETAMINE 77299048266 Active Fabiola Johnson APRN Active BENADRYL 25 MG CAP 4 po at bedtime for insomnia DIPHENHYDRAMINE HCL 31350636721 Active Fabiola Johnson APRN Active KLONOPIN 1 MG ORAL TABS 1 tab po TID CLONAZEPAM 20549803326 Active Fabiola Johnson APRN Active VALIUM 5 MG TAB Take 1-2 tablets daily DIAZEPAM 01010248472 No Longer Active Fabiola Johnson APRN Active METOPROLOL TARTRATE 25 MG ORAL TABS 1/2 tablet twice daily for heart rate and blood pressure METOPROLOL TARTRATE 48692932447 No Longer Active Fabiola Johnson APRN Active MIRALAX ORAL POWD 17GMS DAILY IN WATER POLYETHYLENE GLYCOL 3350 76975888076 Active Vishal Hui MD Active VIIBRYD 10 MG ORAL TABS Take 1 tablet once a day VILAZODONE HCL 71822667112 Active Ahmet Carbajal MD Active MIRALAX PACK 1 po qd PRN Constipation POLYETHYLENE GLYCOL 3350 58578378163 No Longer Active Ahmet Carbajal MD Active MINIPRESS 2 MG CAPS 4 cap po at night PRAZOSIN HCL 04452573061 No Longer Active Ahmet Carbajal MD Active PIROXICAM 20 MG CAPS 1 cap po qd PRN Pain PIROXICAM 47048790438 No Longer Active Ahmet Carbajal MD Active TRAMADOL HCL 50 MG TABS 1-2 po TID PRN Pain TRAMADOL HCL 48711295480 No Longer Active Ahmet Carbajal MD Active METOPROLOL TARTRATE 50 MG TAB 1 po bid METOPROLOL TARTRATE 32765755453 No Longer Active Ahmet Carbajal MD Active ABILIFY 15 MG ORAL TABS 1 tab daily ARIPIPRAZOLE 96724000533 No Longer Active Ahmet Carbajal MD Active PROZAC 20 MG ORAL CAPS 1 tab daily FLUOXETINE HCL 14402328998 No Longer Active Ahmet Carbajal MD Active AMBIEN 5 MG ORAL TABS 1 tab at bedtime ZOLPIDEM TARTRATE 14407135925 No Longer Active Ahmet Carbajal MD Active PREDNISONE 20 MG TAB 2 tabs daily for 4 days, 1 tab daily for 4 days, 1/2 tab daily for 4 days PREDNISONE 32568533060 No Longer Active Ahmet Carbajal MD Active KEFLEX 500 MG CAP 1 po TID x 10 days CEPHALEXIN 72720149692 No Longer Active Vishal Hui MD Active TOPAMAX 50 MG ORAL TABS 1 tab twice daily TOPIRAMATE 57195206718 Active Vishal Hui MD Active SAPHRIS 5 MG SUBL 1 po bid ASENAPINE MALEATE 56705039718 No Longer Active Luigi Martínez APRN Active LATUDA 80 MG TABS Take one by mouth daily LURASIDONE HCL 39092192030 No Longer Active Pacollina Fralebron MARKETING CONTENT COORDINATOR Active AMLODIPINE BESYLATE 5 MG TABS 1 tablet by mouth daily AMLODIPINE BESYLATE 47029273272 No Longer Active Luigi Martínez APRN Active AMITRIPTYLINE HCL 100 MG TAB one at hs AMITRIPTYLINE HCL 66840922431 No Longer Active Vishal Hui MD Active TRAZODONE HCL 100 MG TAB take 1 at bedtime TRAZODONE HCL 49570347187 No Longer Active Vishal Hui MD Active VYVANSE 40 MG CAPS 1 daily, LISDEXAMFETAMINE DIMESYLATE 97063294198 No Longer Active Vishal Hui MD Active IBUPROFEN 600 MG TAB 1 po TID PRN IBUPROFEN 11601928680 No Longer Active Vishal Hui MD Active PROZAC 20 MG CAP Take one by mouth daily FLUOXETINE HCL 40826160814 No Longer Active Vishal Hui MD Active ZOFRAN 4 MG TABS 1 po q6hr PRN Nausea ONDANSETRON HCL Active Vishal Hui MD Active BACTRIM DS 800-160 MG TABS 1 pill by mouth twice daily SULFAMETHOXAZOLE-TRIMETHOPRIM 04790410059 No Longer Active Sahara Rodriguez MD PhD Active DIFLUCAN 150 MG TAB 1 tablet by mouth daily FLUCONAZOLE 50610082610 No Longer Active Vishal Hui MD Active TIZANIDINE HCL 4 MG TABS 1 po q6hr PRN Muscle Spasm/Back Pain TIZANIDINE HCL 42911462970 Active Vishal Hui MD Active CLINDAMYCIN HCL 150 MG CAPS 1 four times a day CLINDAMYCIN HCL 76530469493 No Longer Active Neeraj Collins MD Active KEFLEX 500 MG ORAL CAPS 1 cap QID by mouth CEPHALEXIN 33246725206 No Longer Active Neeraj Collins MD Active DIFLUCAN 150 MG TABS 1 pill every other day x 2 doses FLUCONAZOLE 24828000450 No Longer Active Sahara Rodriguez MD PhD Active MELATONIN 3 MG CAPS 2 po q hs MELATONIN 87602996367 No Longer Active Sahara Rodriguez MD PhD Active MULTIVITAMINS CAPS Take one by mouth daily MULTIPLE VITAMIN 46440498176 No Longer Active Sahara Rodriguez MD PhD Active BACTRIM DS 800-160 MG TAB 1 tab by mouth twice daily TRIMETHOPRIM-SULFAMETHOXAZOLE 55563068106 No Longer Active Sahara Rodriguez MD PhD Active [facility] PROBIOTIC ORAL CHEW 2 daily po PROBIOTIC PRODUCT 38904253948 No Longer Active Sahara Rodriguez MD PhD Active BACTRIM DS 800-160 MG TABS 1 po BID x 7 days SULFAMETHOXAZOLE-TRIMETHOPRIM 74092021622 No Longer Active Vishal Hui MD Active CHANTIX STARTING MONTH EARNEST 0.5 MG X 11 & 1 MG X 42 TABS 0.5mg daily for 3 days , then 0.5mg BID for 4 days, then 1mg BID VARENICLINE TARTRATE 29665361794 No Longer Active TAMARA Gray Active VERAPAMIL HCL CR 120 MG TAB CR 1 po bid VERAPAMIL HCL 10504155050 No Longer Active Vishal Hui MD Active METOPROLOL SUCCINATE 50 MG TB24 1 tablet by mouth daily METOPROLOL SUCCINATE 81607628072 No Longer Active Vishal Hui MD Active SAPHRIS 10 MG SUBL 1 tab po bid ASENAPINE MALEATE 10918278850 No Longer Active Vishal Hui MD Active LISINOPRIL 20 MG TABS 1 tab po qd LISINOPRIL 51597563364 No Longer Active Vishal Hui MD Active LATUDA 20 MG TABS Take one by mouth daily LURASIDONE HCL 26077972364 No Longer Active Vishal Hui MD Active TRAZODONE HCL 50 MG TABS 1/2 tab po qd prn for anxiety TRAZODONE HCL 59897197469 No Longer Active Vishal Hui MD Active OMEPRAZOLE 20 MG TBEC 1 po q a.m. 30min prior to first food intake OMEPRAZOLE 16337475160 Active Vishal Hui MD Active RANITIDINE HCL 150 MG CAPS 1 twice a day RANITIDINE HCL 20504985969 Active Luigi Martínez APRN Active LINZESS 290 MCG CAPS Take one by mouth daily LINACLOTIDE 37418097168 No Longer Active Vishal Hui MD Active SAPHRIS 5 MG SUBL 1 tab po qd ASENAPINE MALEATE 44316394706 No Longer Active Vishal Hui MD Active ZALEPLON 10 MG CAPS 1 cap po every other night ZALEPLON 59458027163 No Longer Active Vishal Hui MD Active LYRICA 50 MG CAPS 1 tab po TID PREGABALIN 91790008494 No Longer Active Vishal Hui MD Active LORATADINE 10 MG TABS 1 tab po qd LORATADINE 04691102478 No Longer Active Vishal Hui MD Active VERAPAMIL HCL ER 180 MG CR-TABS 1 tab po bid VERAPAMIL HCL 81173218624 No Longer Active Vishal Hui MD Active MIRALAX POWD 1 capfull once daily POLYETHYLENE GLYCOL 3350 04305145828 No Longer Active Vishal Hui MD Active PREDNISONE 20 MG TABS 1 tab po qd PREDNISONE 56145461776 No Longer Active Renzo Thornton DO Active LEVOFLOXACIN 500 MG TABS 1 tab po qd LEVOFLOXACIN 58614812897 No Longer Active Renzo Thornton DO Active BUSPIRONE HCL 15 MG TABS 1 tab po TID BUSPIRONE HCL 63613444237 No Longer Active Renzo Thornton DO Active BENZTROPINE MESYLATE 1 MG TABS 1 tab po qd BENZTROPINE MESYLATE 04274275897 No Longer Active Renzo Thornton DO Active ATENOLOL 25 MG TABS 1 tab po qd ATENOLOL 87742273076 No Longer Active Renzo Thornton DO Active ESCITALOPRAM OXALATE 20 MG TABS 1 tab po qd ESCITALOPRAM OXALATE 71912399956 No Longer Active Renzo Thornton DO Active ADVAIR DISKUS 250-50 MCG/DOSE AEPB 1 puff BID FLUTICASONE-SALMETEROL 69925985592 No Longer Active Renzo Thornton DO Active PREDNISONE 20 MG TAB 2 tabs daily for 3 days, 1 tab daily for 3 days, 1/2 tab daily for 2 days PREDNISONE 27079299355 No Longer Active Vishal Hui MD Active CEFDINIR 300 MG CAPS by mouth twice a day CEFDINIR 41738397817 No Longer Active Vishal Hui MD Active LANSOPRAZOLE 30 MG CPDR 1 cap po qd LANSOPRAZOLE 03360081127 No Longer Active Vishal Hui MD Active BACLOFEN 20 MG TABS 1 tab po tid BACLOFEN 08211334710 No Longer Active Vishal Hui MD Active ADVAIR DISKUS 250-50 MCG/DOSE AEPB 1 puff BID ADVAIR DISKUS 250-50 MCG/DOSE AEPB FLUTICASONE-SALMETEROL Inactive ESCITALOPRAM OXALATE 20 MG TABS 1 tab po qd ESCITALOPRAM OXALATE 20 MG TABS 489366 ESCITALOPRAM OXALATE Inactive ATENOLOL 25 MG TABS 1 tab po qd ATENOLOL 25 MG TABS 629838 ATENOLOL Inactive BENZTROPINE MESYLATE 1 MG TABS 1 tab po qd BENZTROPINE MESYLATE 1 MG TABS 965561 BENZTROPINE MESYLATE Inactive BUSPIRONE HCL 15 MG TABS 1 tab po TID BUSPIRONE HCL 15 MG TABS 843406 BUSPIRONE HCL Inactive LEVOFLOXACIN 500 MG TABS 1 tab po qd LEVOFLOXACIN 500 MG TABS 648631 LEVOFLOXACIN Inactive PREDNISONE 20 MG TABS 1 tab po qd PREDNISONE 20 MG TABS 302491 PREDNISONE Inactive MIRALAX POWD 1 capfull once daily MIRALAX POWD 069766 POLYETHYLENE GLYCOL 3350 Inactive VERAPAMIL HCL ER 180 MG CR-TABS 1 tab po bid VERAPAMIL HCL ER 180 MG CR-TABS VERAPAMIL HCL Inactive LORATADINE 10 MG TABS 1 tab po qd LORATADINE 10 MG TABS 897740 LORATADINE Inactive LYRICA 50 MG CAPS 1 tab po TID LYRICA 50 MG CAPS PREGABALIN Inactive ZALEPLON 10 MG CAPS 1 cap po every other night ZALEPLON 10 MG CAPS 088850 ZALEPLON Inactive SAPHRIS 5 MG SUBL 1 tab po qd SAPHRIS 5 MG SUBL ASENAPINE MALEATE Inactive TRAZODONE HCL 50 MG TABS 1/2 tab po qd prn for anxiety TRAZODONE HCL 50 MG TABS 950172 TRAZODONE HCL Inactive LATUDA 20 MG TABS Take one by mouth daily LATUDA 20 MG TABS LURASIDONE HCL Inactive LISINOPRIL 20 MG TABS 1 tab po qd LISINOPRIL 20 MG TABS 267494 LISINOPRIL Inactive SAPHRIS 10 MG SUBL 1 [...] twice daily BACTRIM DS 800-160 MG TAB 905061 TRIMETHOPRIM-SULFAMETHOXAZOLE Inactive MULTIVITAMINS CAPS Take one by mouth daily MULTIVITAMINS CAPS MULTIPLE VITAMIN Inactive MELATONIN 3 MG CAPS 2 po q hs MELATONIN 3 MG CAPS 778698 MELATONIN Inactive KEFLEX 500 MG ORAL CAPS 1 cap QID by mouth KEFLEX 500 MG ORAL CAPS 712698 CEPHALEXIN Inactive CLINDAMYCIN HCL 150 MG CAPS 1 four times a day CLINDAMYCIN HCL 150 MG CAPS 506015 CLINDAMYCIN HCL Inactive DIFLUCAN 150 MG TAB 1 tablet by mouth daily DIFLUCAN 150 MG TAB 784843 FLUCONAZOLE Inactive PROZAC 20 MG CAP Take one by mouth daily PROZAC 20 MG CAP 785326 FLUOXETINE HCL Inactive IBUPROFEN 600 MG TAB 1 po TID PRN IBUPROFEN 600 MG TAB 322174 IBUPROFEN Inactive VYVANSE 40 MG CAPS 1 daily, VYVANSE 40 MG CAPS LISDEXAMFETAMINE DIMESYLATE Inactive TRAZODONE HCL 100 MG TAB take 1 at bedtime TRAZODONE HCL 100 MG TAB 881318 TRAZODONE HCL Inactive AMITRIPTYLINE HCL 100 MG TAB one at hs AMITRIPTYLINE HCL 100 MG TAB 228419 AMITRIPTYLINE HCL Inactive AMLODIPINE BESYLATE 5 MG TABS 1 tablet by mouth daily AMLODIPINE BESYLATE 5 MG TABS 577587 AMLODIPINE BESYLATE Inactive LATUDA 80 MG TABS Take one by mouth daily LATUDA 80 MG TABS LURASIDONE HCL Inactive SAPHRIS 5 MG SUBL 1 po bid SAPHRIS 5 MG SUBL ASENAPINE MALEATE Inactive PREDNISONE 20 MG TAB 2 tabs daily for 4 days, 1 tab daily for 4 days, 1/2 tab daily for 4 days PREDNISONE 20 MG TAB 822623 PREDNISONE Inactive AMBIEN 5 MG ORAL TABS 1 tab at bedtime AMBIEN 5 MG ORAL TABS 653879 ZOLPIDEM TARTRATE Inactive PROZAC 20 MG ORAL CAPS 1 tab daily PROZAC 20 MG ORAL CAPS 695692 FLUOXETINE HCL Inactive ABILIFY 15 MG ORAL TABS 1 tab daily ABILIFY 15 MG ORAL TABS 651120 ARIPIPRAZOLE Inactive METOPROLOL TARTRATE 50 MG TAB 1 po bid METOPROLOL TARTRATE 50 MG TAB 125215 METOPROLOL TARTRATE Inactive TRAMADOL HCL 50 MG TABS 1-2 po TID PRN Pain TRAMADOL HCL 50 MG TABS 842957 TRAMADOL HCL Inactive PIROXICAM 20 MG CAPS 1 cap po qd PRN Pain PIROXICAM 20 MG CAPS 226518 PIROXICAM Inactive MINIPRESS 2 MG CAPS 4 cap po at night MINIPRESS 2 MG CAPS 843744 PRAZOSIN HCL Inactive MIRALAX PACK 1 po qd PRN Constipation MIRALAX PACK 945111 POLYETHYLENE GLYCOL 3350 Inactive METOPROLOL TARTRATE 25 MG ORAL TABS 1/2 tablet twice daily for heart rate and blood pressure METOPROLOL TARTRATE 25 MG ORAL TABS 570453 METOPROLOL TARTRATE Inactive VALIUM 5 MG TAB Take 1-2 tablets daily VALIUM 5 MG TAB 062202 DIAZEPAM Inactive FLAGYL 500 MG TAB 1 tablet by mouth bid FLAGYL 500 MG TAB 137444 METRONIDAZOLE Inactive DICLOFENAC POTASSIUM TABS Take 1 tablet twice a day (pt. is not sure of the dose.) DICLOFENAC POTASSIUM TABS DICLOFENAC POTASSIUM TABS Inactive ZITHROMAX Z-EARNEST 250 MG TABS 2 today and then 1 daily for 4 days ZITHROMAX Z-EARNEST 250 MG TABS 1109334 AZITHROMYCIN Inactive PREDNISONE 20 MG TABS 2 daily for 5 days then 1 daily for 5 days PREDNISONE 20 MG TABS 174941 PREDNISONE Inactive PROAIR HFA 108 (90 BASE) MCG/ACT AERS 2 puffs four times a day as needed 2015 PROAIR HFA 108 (90 BASE) MCG/ACT AERS ALBUTEROL SULFATE Inactive HYDROCODONE-ACETAMINOPHEN 5-325 MG TABS 1 to 2 four times a day as needed for pain use until can be seen by specialist HYDROCODONE- ACETAMINOPHEN 5-325 MG TABS 062278 HYDROCODONE-ACETAMINOPHEN Inactive TESSALON PERLES 100 MG CAP 1 to 2 tablets by mouth 3 times daily as needed for cough TESSALON PERLES 100 MG CAP 298381 BENZONATATE Inactive CEFDINIR 300 MG CAPS by mouth twice a day CEFDINIR 300 MG CAPS 871980 CEFDINIR Inactive PREDNISONE 20 MG TAB 2 tabs daily for 3 days, 1 tab daily for 3 days, 1/2 tab daily for 2 days PREDNISONE 20 MG TAB 406502 PREDNISONE Inactive BACTRIM DS 800-160 MG TABS 1 po BID x 7 days BACTRIM DS 800-160 MG TABS 19820521 SULFAMETHOXAZOLE-TRIMETHOPRIM Inactive DIFLUCAN 150 MG TABS 1 pill every other day x 2 doses DIFLUCAN 150 MG TABS 657762 FLUCONAZOLE Inactive BACTRIM DS 800-160 MG TABS 1 pill by mouth twice daily BACTRIM DS 800-160 MG TABS 19820521 SULFAMETHOXAZOLE-TRIMETHOPRIM Inactive KEFLEX 500 MG CAP 1 po TID x 10 days KEFLEX 500 MG CAP 890651 CEPHALEXIN Inactive Advance Directives Directive Description Start [...] % 11.6-14.8 platelet count 394 10^3/MM^3 10*3/mm3 517-783 4360/01/11 leukocyte count, blood 13.8 10^3/MM^3 10*3/mm3 4.6-10.2 [...] Panel - Chemistry sodium, serum 139 mmol/L 759-636 3310/12/03 carbon dioxide, venous blood 28.5 mmol/L 21.0-32.0 [...] 5.5 % 4.3-6.0 cholesterol, serum 159 mg/dL 563-311 1600/12/03 triglyceride, serum, fasting 118 mg/dL 30-200 HDL [...] Panel - Chemistry sodium, serum 139 mmol/L 737-279 7554/12/22 carbon dioxide, venous blood 26.8 mmol/L 21.0-32.0 potassium, serum 4.2 mmol/L 3.5-5.2 chloride, serum 103 mmol/L 98-107 blood glucose 115 mg/dL 65-110 urea nitrogen, blood 20 mg/dL 7-18 creatinine, serum 0.90 mg/dL 0.55-1.30 alanine aminotransferase (SGPT), serum 38 U/L 12-78 aspartate aminotransferase (SGOT), serum 19 U/L 15-37 calcium, serum 8.6 mg/dL 8.5-10.1 bilirubin, serum, total 0.30 mg/dL 0.00-1.00 sodium, serum 139 mmol/L 878-931 7860/01/11 carbon dioxide, venous blood 26.6 mmol/L 21.0-32.0 potassium, serum 4.1 mmol/L 3.5-5.2 chloride, serum 100 mmol/L 98-107 blood glucose 86 mg/dL 65-110 urea nitrogen, blood 16 mg/dL 7-18 creatinine, serum 1.00 mg/dL 0.55-1.30 alanine aminotransferase (SGPT), serum 48 U/L 12-78 aspartate aminotransferase (SGOT), serum 17 U/L 15-37 calcium, serum 9.1 mg/dL 8.5-10.1 bilirubin, serum, total 0.40 mg/dL 0.00-1.00 sodium, serum 142 mmol/L 507-910 2730/06/08 carbon dioxide, venous blood 27.6 mmol/L 21.0-32.0 potassium, serum 4.0 mmol/L 3.5-5.2 chloride, serum 105 mmol/L 98-107 blood glucose 95 mg/dL 65-110 urea nitrogen, blood 8 mg/dL 7-18 creatinine, serum 0.75 mg/dL 0.55-1.30 alanine aminotransferase (SGPT), serum 49 U/L 12-78 aspartate aminotransferase (SGOT), serum 28 U/L 15-37 calcium, serum 9.4 mg/dL 8.5-10.1 bilirubin, serum, total 0.30 mg/dL 0.00-1.00 sodium, serum 140 mmol/L 726-948 9840/08/08 carbon dioxide, venous blood 33.7 mmol/L 21.0-32.0 [...] Rate - Chemistry sodium, serum 139 mmol/L 584-290 0538/12/11 carbon dioxide, venous blood 25.4 mmol/L 21.0-32.0 [...] mg/dL Encounters Code Encounter Date Provider Facility CPT-67775 Level 3 Est. Patient 13:59:59 CDT Luigi Martínez [facility] CPT-52720 Level 3 Est. Patient 18:18:53 CDT Neeraj Collins MD [facility] CPT-16298 Level 3 Est. Patient 15:50:44 CDT Vishal Hui MD [facility] CPT-86276 Level 3 Est. Patient 11:36:17 CDT Ahmet Carbajal MD [facility] CPT-31865 Level 3 Est. Patient 13:29:16 CDT Vishal Hui MD [facility] CPT-55579 Level 3 Est. Patient 14:27:52 CDT Neeraj Collins MD [facility] CPT-02876 Level 3 Est. Patient 08:56:03 CDT Luigi Martínez [facility] CPT-90020 Level 4 Est. Patient 12:11:48 CDT Fabiola Johnson [facility] CPT-07507 Level 3 New Patient 16:53:37 CDT Albert Caldera MD [facility] CPT-46034 Level 3 Est. Patient 11:25:49 CDT Renzo Thornton DO [facility] CPT-64941 Level 3 Est. Patient 15:22:01 CDT Ahmet Carbajal MD [facility] CPT-01386 Level 4 Est. Patient 09:00:51 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 Vishal Hui MD [facility] CPT-87412 Level 3 Est. Patient 11:37:33 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 Vishal Hui MD [facility] CPT-55376 Level 3 Est. Patient 08:41:09 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 Vishal Hui MD [facility] CPT-08660 Level 4 Est. Patient 10:19:35 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 Vishal Hui MD [facility] CPT-35390 Level 3 Est. Patient 13:35:45 CDT Vishal Hui MD [facility] CPT-12285 Level 4 Est. Patient 10:08:37 CDT Vishal Hui MD [facility] CPT-44693 Level 3 Est. Patient 11:22:10 CDT Vishal Hui MD [facility] CPT-86471 Level 3 Est. Patient 11:03:32 CDT Sahara Rodriguez MD [facility]-43390 Level 3 Est. Patient 09:41:35 CDT Vishal Hui MD [facility] CPT-81634 Level 3 Est. Patient 12:00:41 CDT Neeraj Collins MD [facility] CPT-65273 Level 3 Est. Patient 09:16:24 CDT Vishal Hui MD [facility] CPT-84186 Level 4 Est. Patient 13:59:09 CDT Neeraj Collins MD [facility] CPT-98810 Level 3 Est. Patient 15:19:43 CDT Renzo Thornton DO [facility] CPT-89314 Level 3 Est. Patient 18:10:26 CDT Sahara Rodriguez MD PhD [facility] CPT-36876 Level 3 Est. Patient 14:49:50 CDT Vishal Hui MD [facility] CPT-04993 Level 4 Est. Patient 18:41:46 CDT Neeraj Collins MD [facility] CPT-54156 Level 4 Est. Patient 09:18:38 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 Vishal Hui MD [facility] CPT-86011 Level 3 Est. Patient 14:43:55 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 Vishal Hui MD [facility] CPT-14896 Level 3 Est. Patient 15:26:33 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 Sahara Rodriguez MD PhD [facility] CPT-03833 Level 3 Est. Patient 10:32:14 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 Vishal Hui MD [facility] CPT-63173 Level 3 Est. Patient 15:12:52 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 Vishal Hui MD [facility] CPT-79371 Level 4 Est. Patient 09:19:27 CDT Vishal Hui MD [facility] CPT-80290 Level 3 Est. Patient 15:53:00 CDT Renzo Thornton [facility] CPT-04081 Level 3 Est. Patient 15:50:30 CDT Renzo Thornton [facility] CPT-27111 Level 3 Est. Patient 16:55:24 CDT Vishal Hui MD [facility] Procedures Code Procedure Name Date Entry Date Standard Description CPT-54876 First Vx - Ix admin for Medicare patients 14:37:47 CDT CPT-72441 Fluzone Preservative Free Intramuscular Suspension 14:37 :47 CDT CPT-77731 Abx/Therapy Injection 13:54:22 CDT CPT-42683 Abx/Therapy Injection 08:47:09 CDT CPT-10887 Abx/Therapy Injection 13:29:56 CDT CPT-49355 Abx/Therapy Injection 08:36:16 CDT CPT-33180 Wet Mount - LAB USE ONLY 17:44:58 CDT CPT-02384 UA w micro - LAB USE ONLY 17:44:58 CDT CPT-55815 CMP - LAB USE ONLY 17:44:58 CDT CPT-27877 Venipuncture Draw Fee 17:44:58 CDT CPT-95715 Cervical Min 4V - XRAY USE ONLY 09:01:40 CDT CPT-44944 Chest 2V Frontal and Lat - XRAY USE ONLY 11:06:31 CDT CPT-87898 EKG Trac and Interp - XRAY USE ONLY 11:31:43 CDT 08/26 CPT-J3420 Vitamin B12 1000mcg (Cyanocobalamin) 08:10:26 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 04/12 CPT-87164 Abx/Therapy Injection 08:10:26 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 CPT-G0438 Initial Annual Wellness Exam 19:01:01 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 CPT-J3420 Vitamin B12 1000mcg (Cyanocobalamin) 16:57:46 CDT 08/14 CPT-90399 Recombivax HB Injection Suspension 5 MCG/0.5ML 08:37:50 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 CPT-23276 Immunization Single Admin 08:37:50 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 CPT-J3420 Vitamin B12 1000mcg (Cyanocobalamin) 08:32:16 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 03/11 CPT-82961 Abx/Therapy Injection 08:32:16 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 CPT-40369 Chest 2V Frontal and Lat 11:46:38 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 CPT-29122 Venipuncture Draw Fee 09:12:45 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 CPT-J3420 Vitamin B12 1000mcg (Cyanocobalamin) 08:50:15 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 02/08 CPT-10049 Abx/Therapy Injection 08:50:15 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 CPT-Cryo Cryotherapy 10:19:35 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 CPT-000 Give Appropriate Flu Vaccine 09:22:16 CDT CPT-J3420 Vitamin B12 1000mcg (Cyanocobalamin) 19:08:57 CDT 01/11 CPT-78356 Abx/Therapy Injection 19:08:57 CDT CPT-J3420 Vitamin B12 1000mcg (Cyanocobalamin) 08:19:08 CDT 12/11 CPT-19462 Abx/Therapy Injection 08:19:08 CDT CPT-J3420 Vitamin B12 1000mcg (Cyanocobalamin) 14:48:00 CDT 11/09 CPT-38926 Abx/Therapy Injection 14:47:59 CDT CPT-J3420 Vitamin B12 1000mcg (Cyanocobalamin) 08:34:04 CDT 10/09 CPT-76937 Abx/Therapy Injection 08:34:04 CDT CPT-J3420 Vitamin B12 1000mcg (Cyanocobalamin) 09:18:52 CDT 09/11 CPT-52503 Abx/Therapy Injection 09:18:52 CDT CPT-J3420 Vitamin B12 1000mcg (Cyanocobalamin) 08:35:44 CDT 09/04 CPT-59028 Abx/Therapy Injection 08:35:44 CDT CPT-76508 Immunization Single Admin 11:07:16 CDT CPT-45903 Hepatitis B adult IM 11:07:16 CDT CPT-J3420 Vitamin B12 1000mcg (Cyanocobalamin) 11:00:49 CDT 08/28 CPT-J1040 Depo Medrol 80 mg (Methyl Prednisolone Acetate) 11:00: 49 CDT CPT-92850 Abx/Therapy Injection 11:00:49 CDT CPT-J1040 Depo Medrol 80 mg (Methyl Prednisolone Acetate) 09:16: 23 CDT CPT-J3420 Vitamin B12 1000mcg (Cyanocobalamin) 08:27:05 CDT 08/20 CPT-04646 Abx/Therapy Injection 08:27:05 CDT CPT-19574 Recombivax HB Injection Suspension 5 MCG/0.5ML 10:00:41 CDT CPT-87943 Administration single or combination vaccine inc oral 10 :00:41 CDT CPT-09737 Sono transvag pelvis non OB uterus ovaries cervix 16:36: 57 CDT CPT-98540 LS spine comp w obliq 09:50:55 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 CPT-77392 Abd compl w upright 09:50:55 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 CPT-J1100 Decadron 4mg (Dexamethasone) 15:51:24 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 CPT-J1030 Depo Medrol 40 mg (Methyl Prednisolone Acetate) 15:51: 24 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 CPT-55514 Abx/Therapy Injection 15:51:24 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 CPT-J1100 Decadron 4mg (Dexamethasone) 15:26:33 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 CPT-J1030 Depo Medrol 40 mg (Methyl Prednisolone Acetate) 15:26: 33 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 CPT-97329 Sono retroperitoneal complete kidneys and bladder 17:15: 30 CDT CPT-43795 Abd compl w upright 16:09:25 CDT CPT-J1100 Decadron 8mg (Dexamethasone) 17:07:57 CDT CPT-20298 Abx/Therapy Injection 17:07:57 CDT CPT-J1100 Decadron 8mg (Dexamethasone) 16:55:24 CDT CPT-95802 Chest 2V Frontal and Lat 16:32:44 CDT
--- OUTSIDE RECORDS SUMMARY | 2016-11-04 23:21 | XMS REPORT | Clinical Summary ---
Author Author Admin, [employer] Organization [employer] Address Unknown Phone Unavailable Allergies, Adverse Reactions, [...] Esophageal reflux Personality change 301.9 Resolved Vishal uHi MD Unspecified personality disorder Leukocytosis 288.60 Resolved Vishal Hui MD Leukocytosis, unspecified UTI 599.0 Resolved Vishal Hui MD Urinary tract infection, site not specified Headache, atypical 784.0 Active Luigi Martínez APRN Headache Elevated blood glucose 790.29 Resolved Vishal Hui MD Other abnormal glucose Polyarthralgia 719.49 Active Vishal Hui MD Pain in joint involving multiple sites Morbid obesity 278.01 Active 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 Morbid obesity 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 Active 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 Dependence on other enabling machines and devices [...] IM SUSR Injection once per month ARIPIPRAZOLE 01582095702 Active Juliet Kimbrough APRN Active PREDNISONE 20 MG TAB 2 tabs daily for 4 days, 1 tab daily for 4 days, 1/2 tab daily for 4 days PREDNISONE 37976824142 Active Vishal Hui MD Active IMITREX 50 MG ORAL TABS 1/2 tab every 6 hours prn SUMATRIPTAN SUCCINATE 43903492278 Active Tataina Mauricio NORIEGA Active AMBIEN 5 MG ORAL TABS 1 tab at bedtime ZOLPIDEM TARTRATE 53504724056 Active Luigi Martínez APRN Active PROZAC 20 MG ORAL CAPS 1 tab daily FLUOXETINE HCL 98448076543 Active Tataina Mauricio NORIEGA Active ABILIFY 15 MG ORAL TABS 1 tab daily ARIPIPRAZOLE 88669345997 Active Pacollina Mauricio WALTERSN Active MINIPRESS 2 MG CAPS 4 cap po at night PRAZOSIN HCL 36306039864 Active Tataina Mauricio NORIEGA Active TOPAMAX 50 MG ORAL TABS 1 tab twice daily TOPIRAMATE 85217870985 Active Jillina Mauricio WALTERSN Active SAPHRIS 5 MG SUBL 1 po bid ASENAPINE MALEATE 74031370559 No Longer Active Jillina Fralebron WALTERSN Active LATUDA 80 MG TABS Take one by mouth daily LURASIDONE HCL 13770377020 No Longer Active Luigi Martínez APRN Active AMLODIPINE BESYLATE 5 MG TABS 1 tablet by mouth daily AMLODIPINE BESYLATE 91303040072 No Longer Active Luigi Martínez APRN Active AMITRIPTYLINE HCL 100 MG TAB one at hs AMITRIPTYLINE HCL 95005080041 No Longer Active Vishal Hui MD Active TRAZODONE HCL 100 MG TAB take 1 at bedtime TRAZODONE HCL 19655150892 No Longer Active Vishal Hui MD Active VYVANSE 40 MG CAPS 1 daily, LISDEXAMFETAMINE DIMESYLATE 50884832593 No Longer Active Vishal Hui MD Active IBUPROFEN 600 MG TAB 1 po TID PRN IBUPROFEN 61993440882 No Longer Active Vishal Hui MD Active MIRALAX PACK 1 po qd PRN Constipation POLYETHYLENE GLYCOL 3350 55614452728 Active Vishal Hui MD Active PROZAC 20 MG CAP Take one by mouth daily FLUOXETINE HCL 75904282898 No Longer Active Vishal Hui MD Active ZOFRAN 4 MG TABS 1 po q6hr PRN Nausea ONDANSETRON HCL Active Vishal Hui MD Active BACTRIM DS 800-160 MG TABS 1 pill by mouth twice daily SULFAMETHOXAZOLE-TRIMETHOPRIM 13187543673 No Longer Active Sahara Rodriguez MD PhD Active DIFLUCAN 150 MG TAB 1 tablet by mouth daily FLUCONAZOLE 96614225882 No Longer Active Vishal Hui MD Active TIZANIDINE HCL 4 MG TABS 1 po q6hr PRN Muscle Spasm/Back Pain TIZANIDINE HCL 24374771119 Active Luigi Martínez APRN Active CLINDAMYCIN HCL 150 MG CAPS 1 four times a day CLINDAMYCIN HCL 08810240215 No Longer Active Neeraj Collins MD Active KEFLEX 500 MG ORAL CAPS 1 cap QID by mouth CEPHALEXIN 45898912214 No Longer Active Neeraj Collins MD Active DIFLUCAN 150 MG TABS 1 pill every other day x 2 doses FLUCONAZOLE 37306412685 No Longer Active Sahara Rodriguez MD PhD Active MELATONIN 3 MG CAPS 2 po q hs MELATONIN 98404324074 No Longer Active Sahara Rodriguez MD PhD Active MULTIVITAMINS CAPS Take one by mouth daily MULTIPLE VITAMIN 17793778415 No Longer Active Sahara Rodriguez MD PhD Active BACTRIM DS 800-160 MG TAB 1 tab by mouth twice daily TRIMETHOPRIM-SULFAMETHOXAZOLE 10935381402 No Longer Active Sahara Rodriguez MD PhD Active [facility] PROBIOTIC ORAL CHEW 2 daily po PROBIOTIC PRODUCT 99979928120 No Longer Active Sahara Rodriguez MD PhD Active BACTRIM DS 800-160 MG TABS 1 po BID x 7 days SULFAMETHOXAZOLE-TRIMETHOPRIM 73664985758 No Longer Active Vishal Hui MD Active CHANTIX STARTING MONTH AERNEST 0.5 MG X 11 & 1 MG X 42 TABS 0.5mg daily for 3 days , then 0.5mg BID for 4 days, then 1mg BID VARENICLINE TARTRATE 98690566093 No Longer Active TAMARA Gray Active METOPROLOL TARTRATE 50 MG TAB 1 po bid METOPROLOL TARTRATE 98053734591 Active Vishal Hui MD Active VERAPAMIL HCL CR 120 MG TAB CR 1 po bid VERAPAMIL HCL 53654738493 No Longer Active Vishal Hui MD Active METOPROLOL SUCCINATE 50 MG TB24 1 tablet by mouth daily METOPROLOL SUCCINATE 89307677027 No Longer Active Vishal Hui MD Active TRAMADOL HCL 50 MG TABS 1-2 po TID PRN Pain TRAMADOL HCL 09580765686 Active Luigi Martínez APRN Active SAPHRIS 10 MG SUBL 1 tab po bid ASENAPINE MALEATE 49016212561 No Longer Active Vishal Hui MD Active LISINOPRIL 20 MG TABS 1 tab po qd LISINOPRIL 98740851612 No Longer Active Vishal Hui MD Active BENADRYL 25 MG CAP 2 po tid prn anxiety DIPHENHYDRAMINE HCL 40415473328 Active Vishal Hui MD Active LATUDA 20 MG TABS Take one by mouth daily LURASIDONE HCL 28592061715 No Longer Active Vishal Hui MD Active TRAZODONE HCL 50 MG TABS 1/2 tab po qd prn for anxiety TRAZODONE HCL 98102023802 No Longer Active Vishal Hui MD Active PIROXICAM 20 MG CAPS 1 cap po qd PRN Pain PIROXICAM 04444688952 Active Vishal Hui MD Active OMEPRAZOLE 20 MG TBEC 1 po q a.m. 30min prior to first food intake OMEPRAZOLE 79363766981 Active Vishal Hui MD Active RANITIDINE HCL 150 MG CAPS 1 twice a day RANITIDINE HCL 24431159947 Active Vishal Hui MD Active LINZESS 290 MCG CAPS Take one by mouth daily LINACLOTIDE 77250469728 No Longer Active Vishal Hui MD Active SAPHRIS 5 MG SUBL 1 tab po qd ASENAPINE MALEATE 91902000097 No Longer Active Vishal Hui MD Active ZALEPLON 10 MG CAPS 1 cap po every other night ZALEPLON 94473478361 No Longer Active Vishal Hui MD Active LYRICA 50 MG CAPS 1 tab po TID PREGABALIN 19773163471 No Longer Active Vishal Hui MD Active LORATADINE 10 MG TABS 1 tab po qd LORATADINE 24657275059 No Longer Active Vishal Hui MD Active VERAPAMIL HCL ER 180 MG CR-TABS 1 tab po bid VERAPAMIL HCL 66971658975 No Longer Active Vishal Hui MD Active MIRALAX POWD 1 capfull once daily POLYETHYLENE GLYCOL 3350 23782001053 No Longer Active Vishal Hui MD Active PREDNISONE 20 MG TABS 1 tab po qd PREDNISONE 42915052940 No Longer Active Renzo Thornton DO Active LEVOFLOXACIN 500 MG TABS 1 tab po qd LEVOFLOXACIN 92243440495 No Longer Active Renzo Thornton DO Active BUSPIRONE HCL 15 MG TABS 1 tab po TID BUSPIRONE HCL 85895571332 No Longer Active Renzo Thornton DO Active BENZTROPINE MESYLATE 1 MG TABS 1 tab po qd BENZTROPINE MESYLATE 54386770003 No Longer Active Renzo Thornton DO Active ATENOLOL 25 MG TABS 1 tab po qd ATENOLOL 94572907040 No Longer Active Renzo Thornton DO Active ESCITALOPRAM OXALATE 20 MG TABS 1 tab po qd ESCITALOPRAM OXALATE 93517790056 No Longer Active Renzo Thornton DO Active ADVAIR DISKUS 250-50 MCG/DOSE AEPB 1 puff BID FLUTICASONE-SALMETEROL 32895604371 No Longer Active Renzo Thornton DO Active PREDNISONE 20 MG TAB 2 tabs daily for 3 days, 1 tab daily for 3 days, 1/2 tab daily for 2 days PREDNISONE 24956113882 No Longer Active Vishal Hui MD Active CEFDINIR 300 MG CAPS by mouth twice a day CEFDINIR 88987771637 No Longer Active Vishal Hui MD Active LANSOPRAZOLE 30 MG CPDR 1 cap po qd LANSOPRAZOLE 91160307754 No Longer Active Vishal Hui MD Active BACLOFEN 20 MG TABS 1 tab po tid BACLOFEN 97408409777 No Longer Active Vishal Hui MD Active ADVAIR DISKUS 250-50 MCG/DOSE AEPB 1 puff BID ADVAIR DISKUS 250-50 MCG/DOSE AEPB FLUTICASONE-SALMETEROL Inactive ESCITALOPRAM OXALATE 20 MG TABS 1 tab po qd ESCITALOPRAM OXALATE 20 MG TABS 323156 ESCITALOPRAM OXALATE Inactive ATENOLOL 25 MG TABS 1 tab po qd ATENOLOL 25 MG TABS 457290 ATENOLOL Inactive BENZTROPINE MESYLATE 1 MG TABS 1 tab po qd BENZTROPINE MESYLATE 1 MG TABS 843714 BENZTROPINE MESYLATE Inactive BUSPIRONE HCL 15 MG TABS 1 tab po TID BUSPIRONE HCL 15 MG TABS 637548 BUSPIRONE HCL Inactive LEVOFLOXACIN 500 MG TABS 1 tab po qd LEVOFLOXACIN 500 MG TABS 734117 LEVOFLOXACIN Inactive PREDNISONE 20 MG TABS 1 tab po qd PREDNISONE 20 MG TABS 748091 PREDNISONE Inactive MIRALAX POWD 1 capfull once daily MIRALAX POWD 118482 POLYETHYLENE GLYCOL 3350 Inactive VERAPAMIL HCL ER 180 MG CR-TABS 1 tab po bid VERAPAMIL HCL ER 180 MG CR-TABS VERAPAMIL HCL Inactive LORATADINE 10 MG TABS 1 tab po qd LORATADINE 10 MG TABS 700825 LORATADINE Inactive LYRICA 50 MG CAPS 1 tab po TID LYRICA 50 MG CAPS PREGABALIN Inactive ZALEPLON 10 MG CAPS 1 cap po every other night ZALEPLON 10 MG CAPS 141544 ZALEPLON Inactive SAPHRIS 5 MG SUBL 1 tab po qd SAPHRIS 5 MG SUBL ASENAPINE MALEATE Inactive TRAZODONE HCL 50 MG TABS 1/2 tab po qd prn for anxiety TRAZODONE HCL 50 MG TABS 049589 TRAZODONE HCL Inactive LATUDA 20 MG TABS Take one by mouth daily LATUDA 20 MG TABS LURASIDONE HCL Inactive LISINOPRIL 20 MG TABS 1 tab po qd LISINOPRIL 20 MG TABS 940282 LISINOPRIL Inactive SAPHRIS 10 MG SUBL 1 [...] twice daily BACTRIM DS 800-160 MG TAB 787022 TRIMETHOPRIM-SULFAMETHOXAZOLE Inactive MULTIVITAMINS CAPS Take one by mouth daily MULTIVITAMINS CAPS MULTIPLE VITAMIN Inactive MELATONIN 3 MG CAPS 2 po q hs MELATONIN 3 MG CAPS 100041 MELATONIN Inactive KEFLEX 500 MG ORAL CAPS 1 cap QID by mouth KEFLEX 500 MG ORAL CAPS 774234 CEPHALEXIN Inactive CLINDAMYCIN HCL 150 MG CAPS 1 four times a day CLINDAMYCIN HCL 150 MG CAPS 453370 CLINDAMYCIN HCL Inactive DIFLUCAN 150 MG TAB 1 tablet by mouth daily DIFLUCAN 150 MG TAB 767078 FLUCONAZOLE Inactive PROZAC 20 MG CAP Take one by mouth daily PROZAC 20 MG CAP 206769 FLUOXETINE HCL Inactive IBUPROFEN 600 MG TAB 1 po TID PRN IBUPROFEN 600 MG TAB 806782 IBUPROFEN Inactive VYVANSE 40 MG CAPS 1 daily, VYVANSE 40 MG CAPS LISDEXAMFETAMINE DIMESYLATE Inactive TRAZODONE HCL 100 MG TAB take 1 at bedtime TRAZODONE HCL 100 MG TAB 710152 TRAZODONE HCL Inactive AMITRIPTYLINE HCL 100 MG TAB one at hs AMITRIPTYLINE HCL 100 MG TAB 311983 AMITRIPTYLINE HCL Inactive AMLODIPINE BESYLATE 5 MG TABS 1 tablet by mouth daily AMLODIPINE BESYLATE 5 MG TABS 994456 AMLODIPINE BESYLATE Inactive LATUDA 80 MG TABS Take one by mouth daily LATUDA 80 MG TABS LURASIDONE HCL Inactive SAPHRIS 5 MG SUBL 1 po bid SAPHRIS 5 MG SUBL ASENAPINE MALEATE Inactive CEFDINIR 300 MG CAPS by mouth twice a day CEFDINIR 300 MG CAPS 042113 CEFDINIR Inactive PREDNISONE 20 MG TAB 2 tabs daily for 3 days, 1 tab daily for 3 days, 1/2 tab daily for 2 days PREDNISONE 20 MG TAB 277417 PREDNISONE Inactive BACTRIM DS 800-160 MG TABS 1 po BID x 7 days BACTRIM DS 800-160 MG TABS 19820521 SULFAMETHOXAZOLE-TRIMETHOPRIM Inactive DIFLUCAN 150 MG TABS 1 pill every other day x 2 doses DIFLUCAN 150 MG TABS 075698 FLUCONAZOLE Inactive BACTRIM DS 800-160 MG TABS [...] % 11.6-14.8 platelet count 394 10^3/MM^3 10*3/mm3 650-025 4877/01/11 leukocyte count, blood 13.8 10^3/MM^3 10*3/mm3 4.6-10.2 [...] Panel - Chemistry sodium, serum 139 mmol/L 919-400 3569/12/03 carbon dioxide, venous blood 28.5 mmol/L 21.0-32.0 [...] 5.5 % 4.3-6.0 cholesterol, serum 159 mg/dL 110-964 1007/12/03 triglyceride, serum, fasting 118 mg/dL 30-200 HDL [...] ... - Chemistry sodium, serum 140 mmol/L 701-478 1257/05/28 potassium, serum 4.2 mmol/L 3.5-5.2 chloride, serum [...] Panel - Chemistry sodium, serum 141 mmol/L 966-662 5361 potassium, serum 4.3 mmol/L 3.5-5.2 chloride, serum 106 mmol/L 98-107 carbon dioxide, venous blood 25.7 mmol/L 21.0-32.0 blood glucose 119 mg/dL 65-110 urea nitrogen, blood 22 mg/dL 7-18 creatinine, serum 0.90 mg/dL 0.60-1.30 alanine aminotransferase (SGPT), serum 28 U/L -78 aspartate aminotransferase (SGOT), serum 13 U/L 15-37 calcium, serum 8.5 mg/dL 8.5-10.1 bilirubin, serum, total 0.20 mg/dL 0.00-1.00 sodium, serum 139 mmol/L 599-211 4771/12/22 carbon dioxide, venous blood 26.8 mmol/L 21.0-32.0 potassium, serum 4.2 mmol/L 3.5-5.2 chloride, serum 103 mmol/L 98-107 blood glucose 115 mg/dL 65-110 urea nitrogen, blood 20 mg/dL 7-18 creatinine, serum 0.90 mg/dL 0.55-1.30 alanine aminotransferase (SGPT), serum 38 U/L -78 aspartate aminotransferase (SGOT), serum 19 U/L 15-37 calcium, serum 8.6 mg/dL 8.5-10.1 bilirubin, serum, total 0.30 mg/dL 0.00-1.00 sodium, serum 139 mmol/L 991-515 9942/01/11 carbon dioxide, venous blood 26.6 mmol/L 21.0-32.0 [...] Rate - Chemistry sodium, serum 139 mmol/L 490-778 7846/12/11 carbon dioxide, venous blood 25.4 mmol/L 21.0-32.0 [...] 5.5 5.0-8.5 Lab Report: UADIP W/MICRO, AUTO, [facility] - Chemistry protein, total urine random Negative [...] semiquantitative 7.0 5.0-8.5 Lab Report: Varicella-Zoater Inga IgG,IgM/84519, HEP Be Antibody/556, RUB ... - Serology rubella antibody, serum, IgG 2.88 Encounters Code Encounter Date Provider Facility CPT-06492 Level 4 Est. Patient 09:00:51 VENEREAL DISEASE CONTROL HEAD Vishal Hui MD [facility] CPT-16438 Level 3 Est. Patient 11:37:33 VENEREAL DISEASE CONTROL HEAD Vishal Hui MD [facility] CPT-84096 Level 3 Est. Patient 08:41:09 VENEREAL DISEASE CONTROL HEAD Vishal Hui MD [facility] CPT-65309 Level 4 Est. Patient 10:19:35 VENEREAL DISEASE CONTROL HEAD Vishal Hui MD [facility] CPT-34708 Level 3 Est. Patient 13:35:45 CDT Vishal Hui MD [facility] CPT-21806 Level 4 Est. Patient 10:08:37 CDT Vishal Hui MD [facility] CPT-91998 Level 3 Est. Patient 11:22:10 CDT Vishal Hui MD [facility] CPT-48624 Level 3 Est. Patient 11:03:32 CDT Sahara Rodriguez MD [facility]-30233 Level 3 Est. Patient 09:41:35 CDT Vishal Hui MD [facility] CPT-06974 Level 3 Est. Patient 12:00:41 CDT Neeraj Collins MD [facility] CPT-60553 Level 3 Est. Patient 09:16:24 CDT Vishal Hui MD [facility] CPT-69389 Level 4 Est. Patient 13:59:09 CDT Neeraj Collins MD [facility] CPT-60638 Level 3 Est. Patient 15:19:43 CDT Renzo Thornton DO [facility] CPT-10057 Level 3 Est. Patient 18:10:26 CDT Sahara Rodriguez MD [facility]-35619 Level 3 Est. Patient 14:49:50 CDT Vishal Hui MD [facility] CPT-33431 Level 4 Est. Patient 18:41:46 CDT Neeraj Collins MD [facility]-80310 Level 4 Est. Patient 09:18:38 VENEREAL DISEASE CONTROL HEAD Vishal Hui MD [facility]-15323 Level 3 Est. Patient 14:43:55 VENEREAL DISEASE CONTROL HEAD Vishal Hui MD [facility] CPT-44381 Level 3 Est. Patient 15:26:33 VENEREAL DISEASE CONTROL HEAD Sahara Rodriguez MD [facility]-82693 Level 3 Est. Patient 10:32:14 VENEREAL DISEASE CONTROL HEAD Vishal Hui MD [facility] CPT-73541 Level 3 Est. Patient 15:12:52 VENEREAL DISEASE CONTROL HEAD Vishal Hui MD [facility] CPT-76634 Level 4 Est. Patient 09:19:27 CDT Vishal Hui MD [facility] CPT-39749 Level 3 Est. Patient 15:53:00 CDT Renzo Thornton [facility] CPT-89952 Level 3 Est. Patient 15:50:30 CDT Renzo Thornton [facility] CPT-84161 Level 3 Est. Patient 16:55:24 CDT Vishal Hui MD [facility] Procedures Code Procedure Name Date Entry Date Standard Description CPT-G0438 Initial Annual Wellness Exam 19:01:01 VENEREAL DISEASE CONTROL HEAD CPT-J3420 Vitamin B12 1000mcg (Cyanocobalamin) 16:57:46 CDT 08/14 CPT-91145 Recombivax HB Injection Suspension 5 MCG/0.5ML 08:37:50 VENEREAL DISEASE CONTROL HEAD CPT-52717 Immunization Single Admin 08:37:50 VENEREAL DISEASE CONTROL HEAD CPT-J3420 Vitamin B12 1000mcg (Cyanocobalamin) 08:32:16 VENEREAL DISEASE CONTROL HEAD 03/11 CPT-91440 Abx/Therapy Injection 08:32:16 VENEREAL DISEASE CONTROL HEAD CPT-27905 Chest 2V Frontal and Lat 11:46:38 VENEREAL DISEASE CONTROL HEAD CPT-24954 Venipuncture Draw Fee 09:12:45 VENEREAL DISEASE CONTROL HEAD CPT-J3420 Vitamin B12 1000mcg (Cyanocobalamin) 08:50:15 VENEREAL DISEASE CONTROL HEAD 02/08 CPT-30176 Abx/Therapy Injection 08:50:15 VENEREAL DISEASE CONTROL HEAD CPT-Cryo Cryotherapy 10:19:35 VENEREAL DISEASE CONTROL HEAD CPT-000 Give Appropriate Flu Vaccine 09:22:16 CDT CPT-J3420 Vitamin B12 1000mcg (Cyanocobalamin) 19:08:57 CDT 01/11 CPT-87978 Abx/Therapy Injection 19:08:57 CDT CPT-J3420 Vitamin B12 1000mcg (Cyanocobalamin) 08:19:08 CDT 12/11 CPT-34034 Abx/Therapy Injection 08:19:08 CDT CPT-J3420 Vitamin B12 1000mcg (Cyanocobalamin) 14:48:00 CDT 11/09 CPT-53248 Abx/Therapy Injection 14:47:59 CDT CPT-J3420 Vitamin B12 1000mcg (Cyanocobalamin) 08:34:04 CDT 10/09 CPT-89235 Abx/Therapy Injection 08:34:04 CDT CPT-J3420 Vitamin B12 1000mcg (Cyanocobalamin) 09:18:52 CDT 09/11 CPT-86030 Abx/Therapy Injection 09:18:52 CDT CPT-J3420 Vitamin B12 1000mcg (Cyanocobalamin) 08:35:44 CDT 09/04 CPT-57619 Abx/Therapy Injection 08:35:44 CDT CPT-09389 Immunization Single Admin 11:07:16 CDT CPT-00131 Hepatitis B adult IM 11:07:16 CDT CPT-J3420 Vitamin B12 1000mcg (Cyanocobalamin) 11:00:49 CDT 08/28 CPT-J1040 Depo Medrol 80 mg (Methyl Prednisolone Acetate) 11:00: 49 CDT CPT-91132 Abx/Therapy Injection 11:00:49 CDT CPT-J1040 Depo Medrol 80 mg (Methyl Prednisolone Acetate) 09:16: 23 CDT CPT-J3420 Vitamin B12 1000mcg (Cyanocobalamin) 08:27:05 CDT 08/20 CPT-71723 Abx/Therapy Injection 08:27:05 CDT CPT-10835 Recombivax HB Injection Suspension 5 MCG/0.5ML 10:00:41 CDT CPT-41355 Administration single or combination vaccine inc oral 10 :00:41 CDT CPT-13203 Sono transvag pelvis non OB uterus ovaries cervix 16:36: 57 CDT CPT-96066 LS spine comp w obliq 09:50:55 VENEREAL DISEASE CONTROL HEAD CPT-17880 Abd compl w upright 09:50:55 VENEREAL DISEASE CONTROL HEAD CPT-J1100 Decadron 4mg (Dexamethasone) 15:51:24 VENEREAL DISEASE CONTROL HEAD CPT-J1030 Depo Medrol 40 mg (Methyl Prednisolone Acetate) 15:51: 24 VENEREAL DISEASE CONTROL HEAD CPT-35476 Abx/Therapy Injection 15:51:24 VENEREAL DISEASE CONTROL HEAD CPT-J1100 Decadron 4mg (Dexamethasone) 15:26:33 VENEREAL DISEASE CONTROL HEAD CPT-J1030 Depo Medrol 40 mg (Methyl Prednisolone Acetate) 15:26: 33 VENEREAL DISEASE CONTROL HEAD CPT-40509 Sono retroperitoneal complete kidneys and bladder 17:15: 30 CDT CPT-19648 Abd compl w upright 16:09:25 CDT CPT-J1100 Decadron 8mg (Dexamethasone) 17:07:57 CDT CPT-21054 Abx/Therapy Injection 17:07:57 CDT CPT-J1100 Decadron 8mg (Dexamethasone) 16:55:24 CDT CPT-47639 Chest 2V Frontal and Lat 16:32:44 CDT
--- OUTSIDE RECORDS SUMMARY | 2016-11-04 23:24 | XMS REPORT | Clinical Summary ---
Author Author Admin, E Organization [facility] Address Unknown Phone Unavailable Allergies, Adverse Reactions, Alerts Allergy Name Reaction Description Start Date Severity Status Provider REQUIP Unsure of reaction, states that she was in severe pain Critical Active Ahmet Carbajal MD AMITRIPTYLINE HCL Mood changes. LDA MA Critical Active Vishal Hui MD FANAPT heart palpitations Critical Active Visahl Hui MD SEROQUEL Critical Active Vishal Hui [...] breath Nocturnal hypoxia 799.02 Active Fabiola Johnson LIVESTOCK COUNTER Hypoxemia Neck pain 723.1 Resolved Vishal Hui [...] as needed for pseudoseizures or anxiety CLONAZEPAM 48190871582 Active Ahmet Carbajal MD Active HYDROCODONE-ACETAMINOPHEN 5-325 MG ORAL TABS 1 tab two times a day HYDROCODONE-ACETAMINOPHEN 01937507773 No Longer Active Ahmet Carbajal MD Active LAMICTAL 100 MG ORAL TABS 1 tab 2 times qd. LAMOTRIGINE 62554185084 Active Ahmet Carbajal MD Active PREDNISONE 20 MG TABS 2 daily for 5 days then 1 daily for 5 days PREDNISONE 55771457936 No Longer Active Ahmet Carbajal MD Active FLUTICASONE PROPIONATE 50 MCG/ACT SUSP 1 to 2 sprays each nostril daily for allergies FLUTICASONE PROPIONATE 48240190627 Active Tila Valenzuela Active GUAIFENESIN-CODEINE 100-10 MG/5ML SYRP 5ml every 4 to 6 hours as needed for cough GUAIFENESIN-CODEINE 28112295642 Active Ahmet Carbajal MD Active BENADRYL 25 MG CAP 4 po at bedtime for insomnia DIPHENHYDRAMINE HCL 80711258185 No Longer Active Ahmet Carbajal MD Active ADVAIR DISKUS 250-50 MCG/DOSE INH AEPB 1 puff twice a day for asthma FLUTICASONE-SALMETEROL 21364700598 No Longer Active Ahmet Carbajal MD Active KLONOPIN 1 MG ORAL TABS 1 tab po TID CLONAZEPAM 18513951160 No Longer Active Ahmet Carbajal MD Active ABILIFY MAINTENA 400 MG IM SUSR 400mg injection every 26 days ARIPIPRAZOLE 53229377110 No Longer Active Ahmet Carbajal MD Active HALOPERIDOL 10 MG ORAL TABS 1 tab q.d HALOPERIDOL 61616300717 Active Ahmet Carbajal MD Active ASPIRIN 325 MG ORAL TABS 1 tab q.d ASPIRIN 95743562824 Active Ahmet Carbajal MD Active TRAMADOL HCL 50 MG TABS 1/2-1 tab TID PRN TRAMADOL HCL 80606155227 No Longer Active Ahmet Carbajal MD Active BACTRIM DS 800-160 MG TABS 1 twice a day SULFAMETHOXAZOLE- TRIMETHOPRIM 65955989575 No Longer Active Ahmet Carbajal MD Active PROAIR HFA 108 (90 BASE) MCG/ACT AERS 2 puffs four times a day as needed 2015 ALBUTEROL SULFATE 14888877608 Active Ahmet Carbajal MD Active EQ NICOTINE 21 MG/24HR TRANS PT24 Apply daily to stop smoking NICOTINE 81114818235 Active Ahmet Carbajal MD Active MONISTAT 7 COMBO PACK WOODROW 100 & 2 MG-% (9GM) VAG KIT 1 applicatorful per vagina q pm x 7 MICONAZOLE NITRATE 15844498196 No Longer Active Ahmet Carbajal MD Active FLAGYL 500 MG TAB 1 tablet by mouth bid METRONIDAZOLE 81761874730 No Longer Active Ahmet Carbajal MD Active OXYCODONE HCL ER 10 MG ORAL T12A 1/2 tab by mouth every 4 hours prn OXYCODONE HCL 04207956142 No Longer Active Ahmet Carbajal MD Active METHYLPREDNISOLONE 4 MG ORAL TABS po daily METHYLPREDNISOLONE 72535339481 No Longer Active Ahmet Carbajal MD Active LEVOFLOXACIN 500 MG ORAL TABS po daily LEVOFLOXACIN 12999424073 No Longer Active Ahmet Carbajal MD Active VIIBRYD 10 MG ORAL TABS Take 1 tablet once a day VILAZODONE HCL 57131042296 No Longer Active Ahmet Carbajal MD Active TOPAMAX 50 MG ORAL TABS 1 tab twice daily TOPIRAMATE 16994753750 No Longer Active Ahmet Carbajal MD Active DICLOFENAC SODIUM 50 MG TBEC 1 tablet by mouth four times daily PRN Pain 2015 DICLOFENAC SODIUM 73054496086 No Longer Active Ahmet Carbajal MD Active ADZENYS XR-ODT 6.3 MG ORAL TBED 1 tab po daily for ADHD AMPHETAMINE 35269866921 No Longer Active Ahmet Carbajal MD Active CHANTIX 1 MG TABS 1 twice a day to help quit smoking VARENICLINE TARTRATE 51166844963 No Longer Active Dipika Burgos MD Active CHANTIX STARTING MONTH EARNEST 0.5 MG X 11 & 1 MG X 42 TABS take as directed 2015 VARENICLINE TARTRATE 84072134269 No Longer Active Dipika Burgos MD Active TESSALON PERLES 100 MG CAP 1 to 2 tablets by mouth 3 times daily as needed for cough BENZONATATE 15358179277 No Longer Active Luigi Martínez APRN Active IMITREX 50 MG ORAL TABS 0.5 po x 1 PRN Headache. May repeat dose x 1 in 2 hours if needed SUMATRIPTAN SUCCINATE 63748118161 Active Ahmet Carbajal MD Active HYDROCODONE-ACETAMINOPHEN 5-325 MG TABS 1 to 2 four times a day as needed for pain use until can be seen by specialist HYDROCODONE- ACETAMINOPHEN 83394088266 No Longer Active Vishal Hui MD Active PROAIR HFA 108 (90 BASE) MCG/ACT AERS 2 puffs four times a day as needed 2015 ALBUTEROL SULFATE 83602646818 No Longer Active Vishal Hui MD Active PREDNISONE 20 MG TABS 2 daily for 5 days then 1 daily for 5 days PREDNISONE 33777651573 No Longer Active Vishal Hui MD Active ZITHROMAX Z-EARNEST 250 MG TABS 2 today and then 1 daily for 4 days AZITHROMYCIN 23024083364 No Longer Active Vishal Hui MD Active DICLOFENAC POTASSIUM TABS Take 1 tablet twice a day (pt. is not sure of the dose.) DICLOFENAC POTASSIUM TABS 34671159335 No Longer Active Vishal Hui MD Active VERAPAMIL HCL ER 120 MG ORAL CR-TABS Take 1 tablet by mouth twice a day. VERAPAMIL HCL 67244635772 Active Vishal Hui MD Active FLAGYL 500 MG TAB 1 tablet by mouth bid METRONIDAZOLE 83322352708 No Longer Active Vishal Hui MD Active FLUTICASONE PROPIONATE 50 MCG/ACT SUSP 2 sprays each nostril daily before bed. FLUTICASONE PROPIONATE 77349057082 Active Fabiola Johnson APRN Active VALIUM 5 MG TAB Take 1-2 tablets daily DIAZEPAM 74537000098 No Longer Active Fabiola Johnson APRN Active METOPROLOL TARTRATE 25 MG ORAL TABS 1/2 tablet twice daily for heart rate and blood pressure METOPROLOL TARTRATE 13793395326 No Longer Active Fabiola Johnson APRN Active MIRALAX ORAL POWD 17GMS DAILY IN WATER POLYETHYLENE GLYCOL 3350 64889467537 Active Vishal Hui MD Active MIRALAX PACK 1 po qd PRN Constipation POLYETHYLENE GLYCOL 3350 91121047051 No Longer Active Ahmet Carbajal MD Active MINIPRESS 2 MG CAPS 4 cap po at night PRAZOSIN HCL 72445770124 No Longer Active Ahmet Carbajal MD Active PIROXICAM 20 MG CAPS 1 cap po qd PRN Pain PIROXICAM 33949790467 No Longer Active Ahmet Carbajal MD Active TRAMADOL HCL 50 MG TABS 1-2 po TID PRN Pain TRAMADOL HCL 77840814447 No Longer Active Ahmet Carbajal MD Active METOPROLOL TARTRATE 50 MG TAB 1 po bid METOPROLOL TARTRATE 97916797539 No Longer Active Ahmet Carbajal MD Active ABILIFY 15 MG ORAL TABS 1 tab daily ARIPIPRAZOLE 45550670590 No Longer Active Ahmet Carbajal MD Active PROZAC 20 MG ORAL CAPS 1 tab daily FLUOXETINE HCL 83728352444 No Longer Active Ahmet Carbajal MD Active AMBIEN 5 MG ORAL TABS 1 tab at bedtime ZOLPIDEM TARTRATE 12484186605 No Longer Active Ahmet Carbajal MD Active PREDNISONE 20 MG TAB 2 tabs daily for 4 days, 1 tab daily for 4 days, 1/2 tab daily for 4 days PREDNISONE 25003308098 No Longer Active Ahmet Carbajal MD Active KEFLEX 500 MG CAP 1 po TID x 10 days CEPHALEXIN 44413508924 No Longer Active Vishal Hui MD Active SAPHRIS 5 MG SUBL 1 po bid ASENAPINE MALEATE 57622069139 No Longer Active Jillina Frazell LIVESTOCK COUNTER Active LATUDA 80 MG TABS Take one by mouth daily LURASIDONE HCL 13753161484 No Longer Active Jillina Frazell LIVESTOCK COUNTER Active AMLODIPINE BESYLATE 5 MG TABS 1 tablet by mouth daily AMLODIPINE BESYLATE 45635701124 No Longer Active Jillina Frazell LIVESTOCK COUNTER Active AMITRIPTYLINE HCL 100 MG TAB one at hs AMITRIPTYLINE HCL 40031053781 No Longer Active Vishal Hui MD Active TRAZODONE HCL 100 MG TAB take 1 at bedtime TRAZODONE HCL 89472754717 No Longer Active Vishal Hui MD Active VYVANSE 40 MG CAPS 1 daily, LISDEXAMFETAMINE DIMESYLATE 78710102494 No Longer Active Vishal Hui MD Active IBUPROFEN 600 MG TAB 1 po TID PRN IBUPROFEN 45999303846 No Longer Active Vishal Hui MD Active PROZAC 20 MG CAP Take one by mouth daily FLUOXETINE HCL 61308268811 No Longer Active Vishal Hui MD Active ZOFRAN 4 MG TABS 1 po q6hr PRN Nausea ONDANSETRON HCL Active Vishal Hui MD Active BACTRIM DS 800-160 MG TABS 1 pill by mouth twice daily SULFAMETHOXAZOLE-TRIMETHOPRIM 56368409033 No Longer Active Sahara Rodriguez MD PhD Active DIFLUCAN 150 MG TAB 1 tablet by mouth daily FLUCONAZOLE 47197704199 No Longer Active Vishal Hui MD Active TIZANIDINE HCL 4 MG TABS 1 po q6hr PRN Muscle Spasm/Back Pain TIZANIDINE HCL 43540720890 Active Vishal Hui MD Active CLINDAMYCIN HCL 150 MG CAPS 1 four times a day CLINDAMYCIN HCL 76927148014 No Longer Active Neeraj Collins MD Active KEFLEX 500 MG ORAL CAPS 1 cap QID by mouth CEPHALEXIN 35987472156 No Longer Active Neeraj Collins MD Active DIFLUCAN 150 MG TABS 1 pill every other day x 2 doses FLUCONAZOLE 22368141297 No Longer Active Sahara Rodriguez MD PhD Active MELATONIN 3 MG CAPS 2 po q hs MELATONIN 61930413817 No Longer Active Sahara Rodriguez MD PhD Active MULTIVITAMINS CAPS Take one by mouth daily MULTIPLE VITAMIN 67501727664 No Longer Active Sahara Rodriguez MD PhD Active BACTRIM DS 800-160 MG TAB 1 tab by mouth twice daily TRIMETHOPRIM-SULFAMETHOXAZOLE 73512065781 No Longer Active Sahara Rodriguez MD PhD Active [facility] PROBIOTIC ORAL CHEW 2 daily po PROBIOTIC PRODUCT 47991214093 No Longer Active Sahara Rodriguez MD PhD Active BACTRIM DS 800-160 MG TABS 1 po BID x 7 days SULFAMETHOXAZOLE-TRIMETHOPRIM 26713370415 No Longer Active Vishal Hui MD Active CHANTIX STARTING MONTH EARNEST 0.5 MG X 11 & 1 MG X 42 TABS 0.5mg daily for 3 days , then 0.5mg BID for 4 days, then 1mg BID VARENICLINE TARTRATE 64058248977 No Longer Active TAMARA Gray Active VERAPAMIL HCL CR 120 MG TAB CR 1 po bid VERAPAMIL HCL 00402223228 No Longer Active Vishal Hui MD Active METOPROLOL SUCCINATE 50 MG TB24 1 tablet by mouth daily METOPROLOL SUCCINATE 29164419409 No Longer Active Vishal Hui MD Active SAPHRIS 10 MG SUBL 1 tab po bid ASENAPINE MALEATE 27512845871 No Longer Active Vishal Hui MD Active LISINOPRIL 20 MG TABS 1 tab po qd LISINOPRIL 20585889120 No Longer Active Vishal Hui MD Active LATUDA 20 MG TABS Take one by mouth daily LURASIDONE HCL 31668625566 No Longer Active Vishal Hui MD Active TRAZODONE HCL 50 MG TABS 1/2 tab po qd prn for anxiety TRAZODONE HCL 39006578223 No Longer Active Vishal Hui MD Active OMEPRAZOLE 20 MG TBEC 1 po q a.m. 30min prior to first food intake OMEPRAZOLE 70216166747 Active Vishal Hui MD Active RANITIDINE HCL 150 MG CAPS 1 twice a day RANITIDINE HCL 25994479554 Active Jioral Martínez APRN Active LINZESS 290 MCG CAPS Take one by mouth daily LINACLOTIDE 96656387409 No Longer Active Vishal Hui MD Active SAPHRIS 5 MG SUBL 1 tab po qd ASENAPINE MALEATE 78801458883 No Longer Active Vishal Hui MD Active ZALEPLON 10 MG CAPS 1 cap po every other night ZALEPLON 23124829766 No Longer Active Vishal Hui MD Active LYRICA 50 MG CAPS 1 tab po TID PREGABALIN 36271432783 No Longer Active Vishal Hui MD Active LORATADINE 10 MG TABS 1 tab po qd LORATADINE 16487804200 No Longer Active Vishal Hui MD Active VERAPAMIL HCL ER 180 MG CR-TABS 1 tab po bid VERAPAMIL HCL 19869642152 No Longer Active Vishal Hui MD Active MIRALAX POWD 1 capfull once daily POLYETHYLENE GLYCOL 3350 85531812747 No Longer Active Vishal Hui MD Active PREDNISONE 20 MG TABS 1 tab po qd PREDNISONE 65982608074 No Longer Active Renzo Thornton DO Active LEVOFLOXACIN 500 MG TABS 1 tab po qd LEVOFLOXACIN 26759270613 No Longer Active Renzo Thornton DO Active BUSPIRONE HCL 15 MG TABS 1 tab po TID BUSPIRONE HCL 70534837030 No Longer Active Renzo Thornton DO Active BENZTROPINE MESYLATE 1 MG TABS 1 tab po qd BENZTROPINE MESYLATE 08782099429 No Longer Active Renoz Thornton DO Active ATENOLOL 25 MG TABS 1 tab po qd ATENOLOL 14718754211 No Longer Active Renzo Thornton DO Active ESCITALOPRAM OXALATE 20 MG TABS 1 tab po qd ESCITALOPRAM OXALATE 79235581859 No Longer Active Renzo Thornton DO Active ADVAIR DISKUS 250-50 MCG/DOSE AEPB 1 puff BID FLUTICASONE-SALMETEROL 09164489331 No Longer Active Renzo Thornton DO Active PREDNISONE 20 MG TAB 2 tabs daily for 3 days, 1 tab daily for 3 days, 1/2 tab daily for 2 days PREDNISONE 07109467777 No Longer Active Vishal Hui MD Active CEFDINIR 300 MG CAPS by mouth twice a day CEFDINIR 01399806069 No Longer Active Vishal Hui MD Active LANSOPRAZOLE 30 MG CPDR 1 cap po qd LANSOPRAZOLE 77951156985 No Longer Active Vishal Hui MD Active BACLOFEN 20 MG TABS 1 tab po tid BACLOFEN 49726566764 No Longer Active Vishal Hui MD Active ADVAIR DISKUS 250-50 MCG/DOSE AEPB 1 puff BID ADVAIR DISKUS 250-50 MCG/DOSE AEPB FLUTICASONE-SALMETEROL Inactive ESCITALOPRAM OXALATE 20 MG TABS 1 tab po qd ESCITALOPRAM OXALATE 20 MG TABS 583124 ESCITALOPRAM OXALATE Inactive ATENOLOL 25 MG TABS 1 tab po qd ATENOLOL 25 MG TABS 761012 ATENOLOL Inactive BENZTROPINE MESYLATE 1 MG TABS 1 tab po qd BENZTROPINE MESYLATE 1 MG TABS 808742 BENZTROPINE MESYLATE Inactive BUSPIRONE HCL 15 MG TABS 1 tab po TID BUSPIRONE HCL 15 MG TABS 366328 BUSPIRONE HCL Inactive LEVOFLOXACIN 500 MG TABS 1 tab po qd LEVOFLOXACIN 500 MG TABS 102582 LEVOFLOXACIN Inactive PREDNISONE 20 MG TABS 1 tab po qd PREDNISONE 20 MG TABS 133079 PREDNISONE Inactive MIRALAX POWD 1 capfull once daily MIRALAX POWD 126868 POLYETHYLENE GLYCOL 3350 Inactive VERAPAMIL HCL ER 180 MG CR-TABS 1 tab po bid VERAPAMIL HCL ER 180 MG CR-TABS VERAPAMIL HCL Inactive LORATADINE 10 MG TABS 1 tab po qd LORATADINE 10 MG TABS 190123 LORATADINE Inactive LYRICA 50 MG CAPS 1 tab po TID LYRICA 50 MG CAPS PREGABALIN Inactive ZALEPLON 10 MG CAPS 1 cap po every other night ZALEPLON 10 MG CAPS 263238 ZALEPLON Inactive SAPHRIS 5 MG SUBL 1 tab po qd SAPHRIS 5 MG SUBL ASENAPINE MALEATE Inactive TRAZODONE HCL 50 MG TABS 1/2 tab po qd prn for anxiety TRAZODONE HCL 50 MG TABS 250059 TRAZODONE HCL Inactive LATUDA 20 MG TABS Take one by mouth daily LATUDA 20 MG TABS LURASIDONE HCL Inactive LISINOPRIL 20 MG TABS 1 tab po qd LISINOPRIL 20 MG TABS 434254 LISINOPRIL Inactive SAPHRIS 10 MG SUBL 1 [...] twice daily BACTRIM DS 800-160 MG TAB 943598 TRIMETHOPRIM-SULFAMETHOXAZOLE Inactive MULTIVITAMINS CAPS Take one by mouth daily MULTIVITAMINS CAPS MULTIPLE VITAMIN Inactive MELATONIN 3 MG CAPS 2 po q hs MELATONIN 3 MG CAPS 514750 MELATONIN Inactive KEFLEX 500 MG ORAL CAPS 1 cap QID by mouth KEFLEX 500 MG ORAL CAPS 823061 CEPHALEXIN Inactive CLINDAMYCIN HCL 150 MG CAPS 1 four times a day CLINDAMYCIN HCL 150 MG CAPS 19740326 CLINDAMYCIN HCL Inactive DIFLUCAN 150 MG TAB 1 tablet by mouth daily DIFLUCAN 150 MG TAB 498724 FLUCONAZOLE Inactive PROZAC 20 MG CAP Take one by mouth daily PROZAC 20 MG CAP 591062 FLUOXETINE HCL Inactive IBUPROFEN 600 MG TAB 1 po TID PRN IBUPROFEN 600 MG TAB 647769 IBUPROFEN Inactive VYVANSE 40 MG CAPS 1 daily, VYVANSE 40 MG CAPS LISDEXAMFETAMINE DIMESYLATE Inactive TRAZODONE HCL 100 MG TAB take 1 at bedtime TRAZODONE HCL 100 MG TAB 830746 TRAZODONE HCL Inactive AMITRIPTYLINE HCL 100 MG TAB one at hs AMITRIPTYLINE HCL 100 MG TAB 542993 AMITRIPTYLINE HCL Inactive AMLODIPINE BESYLATE 5 MG TABS 1 tablet by mouth daily AMLODIPINE BESYLATE 5 MG TABS 856522 AMLODIPINE BESYLATE Inactive LATUDA 80 MG TABS Take one by mouth daily LATUDA 80 MG TABS LURASIDONE HCL Inactive SAPHRIS 5 MG SUBL 1 po bid SAPHRIS 5 MG SUBL ASENAPINE MALEATE Inactive PREDNISONE 20 MG TAB 2 tabs daily for 4 days, 1 tab daily for 4 days, 1/2 tab daily for 4 days PREDNISONE 20 MG TAB 925291 PREDNISONE Inactive AMBIEN 5 MG ORAL TABS 1 tab at bedtime AMBIEN 5 MG ORAL TABS 396151 ZOLPIDEM TARTRATE Inactive PROZAC 20 MG ORAL CAPS 1 tab daily PROZAC 20 MG ORAL CAPS 383948 FLUOXETINE HCL Inactive ABILIFY 15 MG ORAL TABS 1 tab daily ABILIFY 15 MG ORAL TABS 885819 ARIPIPRAZOLE Inactive METOPROLOL TARTRATE 50 MG TAB 1 po bid METOPROLOL TARTRATE 50 MG TAB 705577 METOPROLOL TARTRATE Inactive TRAMADOL HCL 50 MG TABS 1-2 po TID PRN Pain TRAMADOL HCL 50 MG TABS 573139 TRAMADOL HCL Inactive PIROXICAM 20 MG CAPS 1 cap po qd PRN Pain PIROXICAM 20 MG CAPS 937193 PIROXICAM Inactive MINIPRESS 2 MG CAPS 4 cap po at night MINIPRESS 2 MG CAPS 586113 PRAZOSIN HCL Inactive MIRALAX PACK 1 po qd PRN Constipation MIRALAX PACK 941278 POLYETHYLENE GLYCOL 3350 Inactive METOPROLOL TARTRATE 25 MG ORAL TABS 1/2 tablet twice daily for heart rate and blood pressure METOPROLOL TARTRATE 25 MG ORAL TABS 837193 METOPROLOL TARTRATE Inactive VALIUM 5 MG TAB Take 1-2 tablets daily VALIUM 5 MG TAB 007940 DIAZEPAM Inactive FLAGYL 500 MG TAB 1 tablet by mouth bid FLAGYL 500 MG TAB 602662 METRONIDAZOLE Inactive DICLOFENAC POTASSIUM TABS Take 1 tablet twice a day (pt. is not sure of the dose.) DICLOFENAC POTASSIUM TABS DICLOFENAC POTASSIUM TABS Inactive ZITHROMAX Z-EARNEST 250 MG TABS 2 today and then 1 daily for 4 days ZITHROMAX Z-EARNEST 250 MG TABS 6324592 AZITHROMYCIN Inactive PREDNISONE 20 MG TABS 2 daily for 5 days then 1 daily for 5 days PREDNISONE 20 MG TABS 066123 PREDNISONE Inactive PROAIR HFA 108 (90 BASE) MCG/ACT AERS 2 puffs four times a day as needed 2015 PROAIR HFA 108 (90 BASE) MCG/ACT AERS ALBUTEROL SULFATE Inactive HYDROCODONE-ACETAMINOPHEN 5-325 MG TABS 1 to 2 four times a day as needed for pain use until can be seen by specialist HYDROCODONE- ACETAMINOPHEN 5-325 MG TABS 019053 HYDROCODONE-ACETAMINOPHEN Inactive TESSALON PERLES 100 MG CAP 1 to 2 tablets by mouth 3 times daily as needed for cough TESSALON PERLES 100 MG CAP 831264 BENZONATATE Inactive CHANTIX STARTING MONTH EARNEST 0.5 [...] Pain 2015 DICLOFENAC SODIUM 50 MG TBEC 795577 DICLOFENAC SODIUM Inactive TOPAMAX 50 MG ORAL TABS 1 tab twice daily TOPAMAX 50 MG ORAL TABS 269429 TOPIRAMATE Inactive VIIBRYD 10 MG ORAL TABS Take 1 tablet once a day VIIBRYD 10 MG ORAL TABS VILAZODONE HCL Inactive LEVOFLOXACIN 500 MG ORAL TABS po daily LEVOFLOXACIN 500 MG ORAL TABS 677372 LEVOFLOXACIN Inactive METHYLPREDNISOLONE 4 MG ORAL TABS po daily METHYLPREDNISOLONE 4 MG ORAL TABS 321176 METHYLPREDNISOLONE Inactive OXYCODONE HCL ER 10 MG ORAL T12A 1/2 tab by mouth every 4 hours prn OXYCODONE HCL ER 10 MG ORAL T12A OXYCODONE HCL Inactive FLAGYL 500 MG TAB 1 tablet by mouth bid FLAGYL 500 MG TAB 675370 METRONIDAZOLE Inactive MONISTAT 7 COMBO PACK WOODROW 100 & 2 MG-% (9GM) VAG KIT 1 applicatorful per vagina q pm x 7 MONISTAT 7 COMBO PACK WOODROW 100 & 2 MG-% (9GM) VAG KIT MICONAZOLE NITRATE Inactive BACTRIM DS 800-160 MG TABS 1 twice a day BACTRIM DS 800-160 MG TABS 564007 SULFAMETHOXAZOLE-TRIMETHOPRIM Inactive TRAMADOL HCL 50 MG TABS 1/2-1 tab TID PRN TRAMADOL HCL 50 MG TABS 422207 TRAMADOL HCL Inactive ABILIFY MAINTENA 400 MG IM SUSR 400mg injection every 26 days ABILIFY MAINTENA 400 MG IM SUSR ARIPIPRAZOLE Inactive KLONOPIN 1 MG ORAL TABS 1 tab po TID KLONOPIN 1 MG ORAL TABS 649038 CLONAZEPAM Inactive ADVAIR DISKUS 250-50 MCG/DOSE INH AEPB 1 puff twice a day for asthma ADVAIR DISKUS 250-50 MCG/DOSE INH AEPB FLUTICASONE- SALMETEROL Inactive BENADRYL 25 MG CAP 4 po at bedtime for insomnia BENADRYL 25 MG CAP DIPHENHYDRAMINE HCL Inactive PREDNISONE 20 MG TABS 2 daily for 5 days then 1 daily for 5 days PREDNISONE 20 MG TABS 474339 PREDNISONE Inactive HYDROCODONE-ACETAMINOPHEN 5-325 MG ORAL TABS 1 tab two times a day HYDROCODONE-ACETAMINOPHEN 5-325 MG ORAL TABS 398993 HYDROCODONE-ACETAMINOPHEN Inactive CEFDINIR 300 MG CAPS by mouth twice a day CEFDINIR 300 MG CAPS 183536 CEFDINIR Inactive PREDNISONE 20 MG TAB 2 tabs daily for 3 days, 1 tab daily for 3 days, 1/2 tab daily for 2 days PREDNISONE 20 MG TAB 298942 PREDNISONE Inactive BACTRIM DS 800-160 MG TABS 1 po BID x 7 days BACTRIM DS 800-160 MG TABS 19820521 SULFAMETHOXAZOLE-TRIMETHOPRIM Inactive DIFLUCAN 150 MG TABS 1 pill every other day x 2 doses DIFLUCAN 150 MG TABS 835403 FLUCONAZOLE Inactive BACTRIM DS 800-160 MG TABS 1 pill by mouth twice daily BACTRIM DS 800-160 MG TABS 448974 SULFAMETHOXAZOLE-TRIMETHOPRIM Inactive KEFLEX 500 MG CAP 1 po TID x 10 days KEFLEX 500 MG CAP 315527 CEPHALEXIN Inactive Advance Directives Directive Description Start [...] 369 10^3/MM^3 10*3/mm3 142-424 Lab Report: Chlamydia/GC [facility]/[id number] - Lab chlamydia DNA probe NOT DETECTED NOT DETECTED Lab Report: Chlamydia/GC [facility]/11946 - Microbiology Neisseria gonorrhoeae DNA probe NOT DETECTED NOT DETECTED Lab Report: Comp. Metabolic Panel - Chemistry sodium, serum 142 mmol/L 113-088 9892/06/08 carbon dioxide, venous blood 27.6 mmol/L 21.0-32.0 potassium, serum 4.0 mmol/L 3.5-5.2 chloride, serum 105 mmol/L 98-107 blood glucose 95 mg/dL 65-110 urea nitrogen, blood 8 mg/dL 7-18 creatinine, serum 0.75 mg/dL 0.55-1.30 alanine aminotransferase (SGPT), serum 49 U/L -78 aspartate aminotransferase (SGOT), serum 28 U/L 15-37 calcium, serum 9.4 mg/dL 8.5-10.1 bilirubin, serum, total 0.30 mg/dL 0.00-1.00 sodium, serum 140 mmol/L 255-441 6133/08/08 carbon dioxide, venous blood 33.7 mmol/L 21.0-32.0 [...] mg/dL Encounters Code Encounter Date Provider Facility CPT-40796 Level 3 Est. Patient 11:47:37 JOURNALISM TEACHER Ahmet Carbajal MD [facility] CPT-61891 Level 3 Est. Patient 10:40:11 JOURNALISM TEACHER Ahmet Carbajal MD [facility] CPT-88109 Level 3 Est. Patient 15:07:06 JOURNALISM TEACHER Neeraj Collins MD [facility] CPT-32628 Level 4 Est. Patient 14:45:00 JOURNALISM TEACHER Ahmet Carbajal MD [facility] CPT-51519 Level 3 Est. Patient 13:59:59 CDT Luigi Martínez [facility] [place] CPT-59153 Level 3 Est. Patient 18:18:53 CDT Neeraj Collins MD [facility] CPT-91080 Level 3 Est. Patient 15:50:44 CDT Vishal Hui MD [facility] CPT-06104 Level 3 Est. Patient 11:36:17 CDT Ahmet Carbajal MD [facility] CPT-38381 Level 3 Est. Patient 13:29:16 CDT Vishal Hui MD [facility] CPT-71039 Level 3 Est. Patient 14:27:52 CDT Neeraj Collins MD [facility] CPT-66207 Level 3 Est. Patient 08:56:03 CDT Luigi Martínez [facility] [place] CPT-71523 Level 4 Est. Patient 12:11:48 CDT Fabiola Johnson [facility] [place] CPT-56693 Level 3 New Patient 16:53:37 CDT Albert Caldera MD [facility] CPT-90411 Level 3 Est. Patient 11:25:49 CDT Renzo Thornton DO [facility] CPT-80334 Level 3 Est. Patient 15:22:01 CDT Ahmet Carbajal MD [facility] CPT-62399 Level 4 Est. Patient 09:00:51 JOURNALISM TEACHER Vishal Hui MD [facility] CPT-54150 Level 3 Est. Patient 11:37:33 JOURNALISM TEACHER Vishal Hui MD [facility] CPT-27224 Level 3 Est. Patient 08:41:09 JOURNALISM TEACHER Vishal Hui MD [facility] CPT-31240 Level 4 Est. Patient 10:19:35 JOURNALISM TEACHER Vishal Hui MD [facility] CPT-09277 Level 3 Est. Patient 13:35:45 CDT Vishal Hui MD [facility] CPT-44036 Level 4 Est. Patient 10:08:37 CDT Vishal Hui MD [facility] CPT-95753 Level 3 Est. Patient 11:22:10 CDT Vishal Hui MD [facility] CPT-50207 Level 3 Est. Patient 11:03:32 CDT Sahara Rodriguez MD [facility]-86149 Level 3 Est. Patient 09:41:35 CDT Vishal Hui MD [facility] CPT-05802 Level 3 Est. Patient 12:00:41 CDT Neeraj Collins MD [facility] CPT-40237 Level 3 Est. Patient 09:16:24 CDT Vishal Hui MD [facility] CPT-34464 Level 4 Est. Patient 13:59:09 CDT Neeraj Collins MD [facility] CPT-35515 Level 3 Est. Patient 15:19:43 CDT Renzo Tohrnton DO [facility] CPT-63171 Level 3 Est. Patient 18:10:26 CDT Sahara Rodriguez MD [facility]-06319 Level 3 Est. Patient 14:49:50 CDT Vishal Hui MD [facility] CPT-35372 Level 4 Est. Patient 18:41:46 CDT Neeraj Collins MD [facility]-47727 Level 4 Est. Patient 09:18:38 J[employer] Vishal Hui MD [facility] CPT-08250 Level 3 Est. 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 Patient 15:26:33 JOURNALISM TE[employer]ER Sahara Rodriguez MD [facility] CPT-36001 Level 3 Est. Patient 10:32:14 JOURNALISM TEACHER Vishal Hui MD [facility] CPT-65153 Level 3 Est. Patient 15:12:52 J[employer] TE[employer]ER Vishal Hui MD [facility] CPT-52212 Level 4 Est. Patient 09:19:27 CDT Vishal Hui MD [facility] CPT-25361 Level 3 Est. Patient 15:53:00 CDT [facility] CPT-69643 Level 3 Est. Patient 15:50:30 CDT [facility] CPT-91312 Level 3 Est. Patient 16:55:24 CDT Vishal Hui MD [facility] Procedures Code Procedure Name Date Entry Date Standard Description CPT-G0439 [facility] Annual Wellness Exam 09:30:58 [employer] CPT-66838 TSH - LAB USE ONLY 08:50:26 [employer] CPT-70644 CBC - LAB USE ONLY 08:50:26 [employer] CPT-08901 Venipuncture Draw Fee 08:50:26 [employer] CPT-63316 Abx/Therapy Injection 17:34:30 [employer] CPT-02780 Nexplanon Removal with Reinsertion 14:09:32 CDT CPT-J7307 Nexplanon (Implant) 14:09:32 CDT CPT-OV Office Visit 14:09:32 CDT CPT-05800 UA w micro - LAB USE ONLY 16:21:13 CDT CPT-05931 Wet Mount - LAB USE ONLY 16:21:13 CDT CPT-48306 First Vx - Ix admin for Medicare patients 14:37:47 CDT CPT-83830 Fluzone Preservative Free Intramuscular Suspension 14:37 :47 CDT CPT-91807 Abx/Therapy Injection 13:54:22 CDT CPT-61672 Abx/Therapy Injection 08:47:09 CDT CPT-55888 Abx/Therapy Injection 13:29:56 CDT CPT-57177 Abx/Therapy Injection 08:36:16 CDT CPT-22165 Wet Mount - LAB USE ONLY 17:44:58 CDT CPT-14761 UA w micro - LAB USE ONLY 17:44:58 CDT CPT-57600 CMP - LAB USE ONLY 17:44:58 CDT CPT-62493 Venipuncture Draw Fee 17:44:58 CDT CPT-25955 Cervical Min 4V - XRAY USE ONLY 09:01:40 CDT CPT-88975 Chest 2V Frontal and Lat - XRAY USE ONLY 11:06:31 CDT CPT-67593 EKG Trac and Interp - XRAY USE ONLY 11:31:43 CDT 08/26 CPT-J3420 Vitamin B12 1000mcg (Cyanocobalamin) 08:10:26 [employer] 04/12 CPT-81476 Abx/Therapy Injection 08:10:26 [employer] CPT-G0438 Initial Annual Wellness Exam 19:01:01 [employer] CPT-J3420 Vitamin B12 1000mcg (Cyanocobalamin) 16:57:46 CDT 08/14 CPT-62174 Recombivax HB Injection Suspension 5 MCG/0.5ML 08:37:50 [employer] CPT-25248 Immunization Single Admin 08:37:50 [employer] CPT-J3420 Vitamin B12 1000mcg (Cyanocobalamin) 08:32:16 [employer] 03/11 CPT-88643 Abx/Therapy Injection 08:32:16 [employer] CPT-70345 Chest 2V Frontal and Lat 11:46:38 [employer] CPT-91895 Venipuncture Draw Fee 09:12:45 [employer] CPT-J3420 Vitamin B12 1000mcg (Cyanocobalamin) 08:50:15 [employer] 02/08 CPT-88542 Abx/Therapy Injection 08:50:15 [employer] CPT-Cryo Cryotherapy 10:19:35 [employer] CPT-000 Give Appropriate Flu Vaccine 09:22:16 CDT CPT-J3420 Vitamin B12 1000mcg (Cyanocobalamin) 19:08:57 CDT 01/11 CPT-52009 Abx/Therapy Injection 19:08:57 CDT CPT-J3420 Vitamin B12 1000mcg (Cyanocobalamin) 08:19:08 CDT 12/11 CPT-89229 Abx/Therapy Injection 08:19:08 CDT CPT-J3420 Vitamin B12 1000mcg (Cyanocobalamin) 14:48:00 CDT 11/09 CPT-94298 Abx/Therapy Injection 14:47:59 CDT CPT-J3420 Vitamin B12 1000mcg (Cyanocobalamin) 08:34:04 CDT 10/09 CPT-53656 Abx/Therapy Injection 08:34:04 CDT CPT-J3420 Vitamin B12 1000mcg (Cyanocobalamin) 09:18:52 CDT 09/11 CPT-41243 Abx/Therapy Injection 09:18:52 CDT CPT-J3420 Vitamin B12 1000mcg (Cyanocobalamin) 08:35:44 CDT 09/04 CPT-25014 Abx/Therapy Injection 08:35:44 CDT CPT-23876 Immunization Single Admin 11:07:16 CDT CPT-30536 Hepatitis B adult IM 11:07:16 CDT CPT-J3420 Vitamin B12 1000mcg (Cyanocobalamin) 11:00:49 CDT 08/28 CPT-J1040 Depo Medrol 80 mg (Methyl Prednisolone Acetate) 11:00: 49 CDT CPT-92649 Abx/Therapy Injection 11:00:49 CDT CPT-J1040 Depo Medrol 80 mg (Methyl Prednisolone Acetate) 09:16: 23 CDT CPT-J3420 Vitamin B12 1000mcg (Cyanocobalamin) 08:27:05 CDT 08/20 CPT-44144 Abx/Therapy Injection 08:27:05 CDT CPT-20925 Recombivax HB Injection Suspension 5 MCG/0.5ML 10:00:41 CDT CPT-13257 Administration single or combination vaccine inc oral 10 :00:41 CDT CPT-07881 Sono transvag pelvis non OB uterus ovaries cervix 16:36: 57 CDT CPT-91816 LS spine comp w obliq 09:50:55 [employer] CPT-27570 Abd compl w upright 09:50:55 [employer] CPT-J1100 Decadron 4mg (Dexamethasone) 15:51:24 [employer] CPT-J1030 Depo Medrol 40 mg (Methyl Prednisolone Acetate) 15:51: 24 [employer] CPT-95055 Abx/Therapy Injection 15:51:24 [employer]ISM [employer] CPT-J1100 Decadron 4mg (Dexamethasone) 15:26:33 [employer] CPT-J1030 Depo Medrol 40 mg (Methyl Prednisolone Acetate) 15:26: 33 [employer] CPT-81091 Sono retroperitoneal complete kidneys and bladder 17:15: 30 CDT CPT-14089 Abd compl w upright 16:09:25 CDT CPT-J1100 Decadron 8mg (Dexamethasone) 17:07:57 CDT CPT-95102 Abx/Therapy Injection 17:07:57 CDT CPT-J1100 Decadron 8mg (Dexamethasone) 16:55:24 CDT CPT-31895 Chest 2V Frontal and Lat 16:32:44 CDT
--- OUTSIDE RECORDS SUMMARY | 2016-11-04 23:28 | XMS REPORT | Clinical Summary ---
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 Suzan [...] MD Health screening ICD-V70.0 Inactive Suzan Boo CLASSROOM AIDE Sinus tachycardia ICD-427.89 Inactive Suzan Boo CLASSROOM AIDE Smoker/tobacco use disorder-smoking cessation discussed ICD-305.1 Inactive [...] Vishal Hui MD Vaginal discharge ICD-623.5 Inactive Visahl Hui MD Abdominal pain, right lower quadrant [...] MCG ORAL CAPS 1 tab BID LUBIPROSTONE 95509424227 Active Lynda Madl DATA CONTROL CLERK SUPERVISOR Active DIFLUCAN 150 MG TABS 1 by mouth for yeast FLUCONAZOLE 55404549144 Active Suzan Boo APRN Active LACTULOSE 10 GM/15ML ORAL SOLN 30mL oral BID for IBS-C LACTULOSE 40449823169 Active Suzan Boo APRN Active BACTRIM DS 800-160 MG TABS 1 twice a day SULFAMETHOXAZOLE- TRIMETHOPRIM 28477776466 Active Lynda Ninoska BHAKTAN Active MUPIROCIN 2 % OINT apply twice a day MUPIROCIN 44429799477 Active Suzan Boo APRN Active TESSALON PERLES 100 MG CAPS 1 three times a day as needed for cough BENZONATATE 66828404149 No Longer Active Suzan Boo APRN Active BACTRIM DS 800-160 MG TABS 1 twice a day SULFAMETHOXAZOLE-TRIMETHOPRIM 18109014085 No Longer Active Suzan Boo APRN Active DIFLUCAN 150 MG TABS 1 by mouth for yeast FLUCONAZOLE 95474361672 No Longer Active Suzan Boo APRN Active EQ NICOTINE 21 MG/24HR TRANS PT24 Apply daily to stop smoking NICOTINE 23198300224 No Longer Active Suzan Boo APRN Active PREDNISONE 10 MG TABS 2 daily for 5 days then 1 daily for 5 days PREDNISONE 72127960635 No Longer Active Suzan Boo APRN Active LEVAQUIN 500 MG TABS 1 daily for infection LEVOFLOXACIN 13721758735 No Longer Active Suzan Boo APRN Active TROPICAMIDE 0.5 % OPHTH SOLN 1 drop PRN eye spasms TROPICAMIDE 39914111104 No Longer Active Suzan Boo APRN Active PREDNISONE 20 MG TAB 1 tablet daily x 4 days PREDNISONE 94360221338 No Longer Active Suzan Boo APRN Active ACETAMINOPHEN-CODEINE 120-12 MG/5ML SOLN 5 ml by mouth every 4-6 hours if needed for cough ACETAMINOPHEN-CODEINE 29337723247 No Longer Active Suzan Boo APRN Active KEFLEX 500 MG CAP 1 po qid CEPHALEXIN 06703233968 No Longer Active Suzan Boo APRN Active FLOVENT HFA 110 MCG/ACT AERO 2 puffs inhaled b.i.d. FLUTICASONE PROPIONATE HFA 75785286497 Active Renzo Thornton DO Active RISPERDAL 4 MG ORAL TABS 1 tab at bedtime RISPERIDONE 93923793824 Active Samantha Rothman RMA Active ZOFRAN 4 MG TABS 1 po q6hr PRN Nausea ONDANSETRON HCL No Longer Active Suzan Boo APRN Active FLUTICASONE PROPIONATE 50 MCG/ACT SUSP 2 sprays each nostril daily before bed. FLUTICASONE PROPIONATE 72225109317 No Longer Active Suzan Boo APRN Active ASPIRIN 325 MG ORAL TABS 1 tab q.d ASPIRIN 28033705916 No Longer Active Suzan Boo APRN Active HALOPERIDOL 10 MG ORAL TABS 1 tab q.d HALOPERIDOL 13568714665 No Longer Active Suzan Boo APRN Active GUAIFENESIN-CODEINE 100-10 MG/5ML SYRP 5ml every 4 to 6 hours as needed for cough GUAIFENESIN-CODEINE 28548596030 No Longer Active Suzan Boo APRN Active ZITHROMAX Z-EARNEST 250 MG TABS 2 today and then 1 daily for 4 days AZITHROMYCIN 18083852275 No Longer Active Suzan Boo APRN Active CLONAZEPAM 1 MG ORAL TABS 1 twice a day and an additional 1 tablet every other day as needed for pseudoseizures or anxiety CLONAZEPAM 49792826920 Active Suzan Boo APRN Active HYDROCODONE-ACETAMINOPHEN 5-325 MG ORAL TABS 1 tab two times a day HYDROCODONE-ACETAMINOPHEN 49856636727 No Longer Active Ahmet Carbajal MD Active LAMICTAL 100 MG ORAL TABS 1 tab 2 times qd. LAMOTRIGINE 64741948020 Active Ahmet Carbajal MD Active PREDNISONE 20 MG TABS 2 daily for 5 days then 1 daily for 5 days PREDNISONE 76602019748 No Longer Active Ahmet Carbajal MD Active FLUTICASONE PROPIONATE 50 MCG/ACT SUSP 1 to 2 sprays each nostril daily for allergies FLUTICASONE PROPIONATE 80210275408 Active Tila Valenzuela Active BENADRYL 25 MG CAP 4 po at bedtime for insomnia DIPHENHYDRAMINE HCL 86820891066 No Longer Active Ahmet Carbajal MD Active ADVAIR DISKUS 250-50 MCG/DOSE INH AEPB 1 puff twice a day for asthma FLUTICASONE-SALMETEROL 59446441251 No Longer Active Ahmet Carbajal MD Active KLONOPIN 1 MG ORAL TABS 1 tab po TID CLONAZEPAM 96452682635 No Longer Active Ahmet Carbajal MD Active ABILIFY MAINTENA 400 MG IM SUSR 400mg injection every 26 days ARIPIPRAZOLE 87294359035 No Longer Active Ahmet Carbajal MD Active TRAMADOL HCL 50 MG TABS 1/2-1 tab TID PRN TRAMADOL HCL 98696647020 No Longer Active Ahmet Carbajal MD Active BACTRIM DS 800-160 MG TABS 1 twice a day SULFAMETHOXAZOLE- TRIMETHOPRIM 63053764947 No Longer Active Ahmet Carbajal MD Active PROAIR HFA 108 (90 BASE) MCG/ACT AERS 2 puffs four times a day as needed 2015 ALBUTEROL SULFATE 44171082766 Active Honey Hinton CLASSROOM AIDE Active MONISTAT 7 COMBO PACK WOODROW 100 & 2 MG-% (9GM) VAG KIT 1 applicatorful per vagina q pm x 7 MICONAZOLE NITRATE 03708561736 No Longer Active Ahmet Carbajal MD Active FLAGYL 500 MG TAB 1 tablet by mouth bid METRONIDAZOLE 95652977394 No Longer Active Ahmet Carbajal MD Active OXYCODONE HCL ER 10 MG ORAL T12A 1/2 tab by mouth every 4 hours prn OXYCODONE HCL 57054105956 No Longer Active Ahmet Carbajal MD Active METHYLPREDNISOLONE 4 MG ORAL TABS po daily METHYLPREDNISOLONE 56407909700 No Longer Active Ahmet Carbajal MD Active LEVOFLOXACIN 500 MG ORAL TABS po daily LEVOFLOXACIN 27985661163 No Longer Active Ahmet Carbajal MD Active VIIBRYD 10 MG ORAL TABS Take 1 tablet once a day VILAZODONE HCL 39943712527 No Longer Active Ahmet Carbajal MD Active TOPAMAX 50 MG ORAL TABS 1 tab twice daily TOPIRAMATE 14142472840 No Longer Active Ahmet Carbajal MD Active DICLOFENAC SODIUM 50 MG TBEC 1 tablet by mouth four times daily PRN Pain 2015 DICLOFENAC SODIUM 43348916609 No Longer Active Ahmet Carbajal MD Active ADZENYS XR-ODT 6.3 MG ORAL TBED 1 tab po daily for ADHD AMPHETAMINE 26143794276 No Longer Active Ahmet Carbajal MD Active CHANTIX 1 MG TABS 1 twice a day to help quit smoking VARENICLINE TARTRATE 08394000262 No Longer Active Dipika Burgos MD Active CHANTIX STARTING MONTH EARNEST 0.5 MG X 11 & 1 MG X 42 TABS take as directed 2015 VARENICLINE TARTRATE 52607844838 No Longer Active Dipika Burgos MD Active TESSALON PERLES 100 MG CAP 1 to 2 tablets by mouth 3 times daily as needed for cough BENZONATATE 06359981906 No Longer Active Luigi Martínez APRN Active IMITREX 50 MG ORAL TABS 0.5 po x 1 PRN Headache. May repeat dose x 1 in 2 hours if needed SUMATRIPTAN SUCCINATE 06381753475 Active Ahmet Carbajal MD Active HYDROCODONE-ACETAMINOPHEN 5-325 MG TABS 1 to 2 four times a day as needed for pain use until can be seen by specialist HYDROCODONE- ACETAMINOPHEN 15357740582 No Longer Active Vishal Hui MD Active PROAIR HFA 108 (90 BASE) MCG/ACT AERS 2 puffs four times a day as needed 2015 ALBUTEROL SULFATE 24119818628 No Longer Active Vishal Hui MD Active PREDNISONE 20 MG TABS 2 daily for 5 days then 1 daily for 5 days PREDNISONE 61296434348 No Longer Active Vishal Hui MD Active ZITHROMAX Z-EARNEST 250 MG TABS 2 today and then 1 daily for 4 days AZITHROMYCIN 18617625148 No Longer Active Vishal Hui MD Active DICLOFENAC POTASSIUM TABS Take 1 tablet twice a day (pt. is not sure of the dose.) DICLOFENAC POTASSIUM TABS 42850906344 No Longer Active Vishal Hui MD Active VERAPAMIL HCL ER 120 MG ORAL CR-TABS Take 1 tablet by mouth twice a day. VERAPAMIL HCL 89320004774 Active Vishal Hui MD Active FLAGYL 500 MG TAB 1 tablet by mouth bid METRONIDAZOLE 93756880686 No Longer Active Vishal Hui MD Active VALIUM 5 MG TAB Take 1-2 tablets daily DIAZEPAM 20050247484 No Longer Active Fabiola Johnson APRN Active METOPROLOL TARTRATE 25 MG ORAL TABS 1/2 tablet twice daily for heart rate and blood pressure METOPROLOL TARTRATE 01554526571 No Longer Active Fabiola Johnson APRN Active MIRALAX ORAL POWD 17GMS DAILY IN WATER POLYETHYLENE GLYCOL 3350 35337070075 Active TAMARA Casey Active MIRALAX PACK 1 po qd PRN Constipation POLYETHYLENE GLYCOL 3350 81625408991 No Longer Active Ahmet Carbajal MD Active MINIPRESS 2 MG CAPS 4 cap po at night PRAZOSIN HCL 07257208779 No Longer Active Ahmet Carbajal MD Active PIROXICAM 20 MG CAPS 1 cap po qd PRN Pain PIROXICAM 45252761147 No Longer Active Ahmet Carbajal MD Active TRAMADOL HCL 50 MG TABS 1-2 po TID PRN Pain TRAMADOL HCL 35270727676 No Longer Active Ahmet Carbajal MD Active METOPROLOL TARTRATE 50 MG TAB 1 po bid METOPROLOL TARTRATE 62384323286 No Longer Active Ahmet Carbajal MD Active ABILIFY 15 MG ORAL TABS 1 tab daily ARIPIPRAZOLE 76565279181 No Longer Active Ahmet Carbajal MD Active PROZAC 20 MG ORAL CAPS 1 tab daily FLUOXETINE HCL 40072271927 No Longer Active Ahmet Carbajal MD Active AMBIEN 5 MG ORAL TABS 1 tab at bedtime ZOLPIDEM TARTRATE 77488519368 No Longer Active Ahmet Carbajal MD Active PREDNISONE 20 MG TAB 2 tabs daily for 4 days, 1 tab daily for 4 days, 1/2 tab daily for 4 days PREDNISONE 98350177757 No Longer Active Ahmet Carbajal MD Active KEFLEX 500 MG CAP 1 po TID x 10 days CEPHALEXIN 19331191349 No Longer Active Vishal Hui MD Active SAPHRIS 5 MG SUBL 1 po bid ASENAPINE MALEATE 24338288583 No Longer Active Jillina Frazell CLASSROOM AIDE Active LATUDA 80 MG TABS Take one by mouth daily LURASIDONE HCL 86489031647 No Longer Active Jillina Frazell CLASSROOM AIDE Active AMLODIPINE BESYLATE 5 MG TABS 1 tablet by mouth daily AMLODIPINE BESYLATE 10878290610 No Longer Active Jillina Frazell CLASSROOM AIDE Active AMITRIPTYLINE HCL 100 MG TAB one at hs AMITRIPTYLINE HCL 13524348907 No Longer Active Vishal Hui MD Active TRAZODONE HCL 100 MG TAB take 1 at bedtime TRAZODONE HCL 13263843634 No Longer Active Vishal Hui MD Active VYVANSE 40 MG CAPS 1 daily, LISDEXAMFETAMINE DIMESYLATE 00893236497 No Longer Active Vishal Hui MD Active IBUPROFEN 600 MG TAB 1 po TID PRN IBUPROFEN 75882174193 No Longer Active Vishal Hui MD Active PROZAC 20 MG CAP Take one by mouth daily FLUOXETINE HCL 36697680877 No Longer Active Vishal Hui MD Active BACTRIM DS 800-160 MG TABS 1 pill by mouth twice daily SULFAMETHOXAZOLE-TRIMETHOPRIM 20365099685 No Longer Active Sahara Rodriguez MD PhD Active DIFLUCAN 150 MG TAB 1 tablet by mouth daily FLUCONAZOLE 98741305327 No Longer Active Vishal Hui MD Active TIZANIDINE HCL 4 MG TABS 1 po q6hr PRN Muscle Spasm/Back Pain TIZANIDINE HCL 98215170003 Active Vishal Hui MD Active CLINDAMYCIN HCL 150 MG CAPS 1 four times a day CLINDAMYCIN HCL 28772116733 No Longer Active Neeraj Collins MD Active KEFLEX 500 MG ORAL CAPS 1 cap QID by mouth CEPHALEXIN 32221377683 No Longer Active Neeraj Collins MD Active DIFLUCAN 150 MG TABS 1 pill every other day x 2 doses FLUCONAZOLE 60929073158 No Longer Active Sahara Rodriguez MD PhD Active MELATONIN 3 MG CAPS 2 po q hs MELATONIN 49116421320 No Longer Active Sahara Rodriguez MD PhD Active MULTIVITAMINS CAPS Take one by mouth daily MULTIPLE VITAMIN 85383900361 No Longer Active Sahara Rodriguez MD PhD Active BACTRIM DS 800-160 MG TAB 1 tab by mouth twice daily TRIMETHOPRIM-SULFAMETHOXAZOLE 66889674907 No Longer Active Sahara Rodriguez MD PhD Active [facility] PROBIOTIC ORAL CHEW 2 daily po PROBIOTIC PRODUCT 57459825114 No Longer Active Sahara Rodriguez MD PhD Active BACTRIM DS 800-160 MG TABS 1 po BID x 7 days SULFAMETHOXAZOLE-TRIMETHOPRIM 94891517768 No Longer Active Vishal Hui MD Active CHANTIX STARTING MONTH EARNEST 0.5 MG X 11 & 1 MG X 42 TABS 0.5mg daily for 3 days , then 0.5mg BID for 4 days, then 1mg BID VARENICLINE TARTRATE 72220088432 No Longer Active TAMARA Gray Active VERAPAMIL HCL CR 120 MG TAB CR 1 po bid VERAPAMIL HCL 80272420887 No Longer Active Vishal Hui MD Active METOPROLOL SUCCINATE 50 MG TB24 1 tablet by mouth daily METOPROLOL SUCCINATE 11317341284 No Longer Active Vishal Hui MD Active SAPHRIS 10 MG SUBL 1 tab po bid ASENAPINE MALEATE 50725980553 No Longer Active Vishal Hui MD Active LISINOPRIL 20 MG TABS 1 tab po qd LISINOPRIL 67354012399 No Longer Active Vishal Hui MD Active LATUDA 20 MG TABS Take one by mouth daily LURASIDONE HCL 86274094815 No Longer Active Vishal Hui MD Active TRAZODONE HCL 50 MG TABS 1/2 tab po qd prn for anxiety TRAZODONE HCL 78291304515 No Longer Active Vishal Hui MD Active OMEPRAZOLE 20 MG TBEC 1 po q a.m. 30min prior to first food intake OMEPRAZOLE 56909336388 Active TAMARA Casey Active RANITIDINE HCL 150 MG CAPS 1 twice a day RANITIDINE HCL 02873593062 Active Lynda Xiao LPN Active LINZESS 290 MCG CAPS Take one by mouth daily LINACLOTIDE 50491923002 No Longer Active Vishal Hui MD Active SAPHRIS 5 MG SUBL 1 tab po qd ASENAPINE MALEATE 23719965661 No Longer Active Vishal Hui MD Active ZALEPLON 10 MG CAPS 1 cap po every other night ZALEPLON 36761491664 No Longer Active Vishal Hui MD Active LYRICA 50 MG CAPS 1 tab po TID PREGABALIN 12890844263 No Longer Active Vishal Hui MD Active LORATADINE 10 MG TABS 1 tab po qd LORATADINE 01044604054 No Longer Active Vishal Hui MD Active VERAPAMIL HCL ER 180 MG CR-TABS 1 tab po bid VERAPAMIL HCL 54648025906 No Longer Active Vishal Hui MD Active MIRALAX POWD 1 capfull once daily POLYETHYLENE GLYCOL 3350 18927330831 No Longer Active Vishal Hui MD Active PREDNISONE 20 MG TABS 1 tab po qd PREDNISONE 55723136072 No Longer Active Renzo Thornton DO Active LEVOFLOXACIN 500 MG TABS 1 tab po qd LEVOFLOXACIN 85778533040 No Longer Active Renzo Thornton DO Active BUSPIRONE HCL 15 MG TABS 1 tab po TID BUSPIRONE HCL 44461187648 No Longer Active Renzo Thornton DO Active BENZTROPINE MESYLATE 1 MG TABS 1 tab po qd BENZTROPINE MESYLATE 25761032439 No Longer Active Renzo Thornton DO Active ATENOLOL 25 MG TABS 1 tab po qd ATENOLOL 21629469801 No Longer Active Renzo Thornton DO Active ESCITALOPRAM OXALATE 20 MG TABS 1 tab po qd ESCITALOPRAM OXALATE 44683673848 No Longer Active Renzo Thornton DO Active ADVAIR DISKUS 250-50 MCG/DOSE AEPB 1 puff BID FLUTICASONE-SALMETEROL 50530598049 No Longer Active Renzo Thornton DO Active PREDNISONE 20 MG TAB 2 tabs daily for 3 days, 1 tab daily for 3 days, 1/2 tab daily for 2 days PREDNISONE 43522253775 No Longer Active Vishal Hui MD Active CEFDINIR 300 MG CAPS by mouth twice a day CEFDINIR 46868642459 No Longer Active Vishal Hui MD Active LANSOPRAZOLE 30 MG CPDR 1 cap po qd LANSOPRAZOLE 13629399820 No Longer Active Vishal Hui MD Active BACLOFEN 20 MG TABS 1 tab po tid BACLOFEN 30585166522 No Longer Active Vishal Hui MD Active ADVAIR DISKUS 250-50 MCG/DOSE AEPB 1 puff BID ADVAIR DISKUS 250-50 MCG/DOSE AEPB FLUTICASONE-SALMETEROL Inactive ESCITALOPRAM OXALATE 20 MG TABS 1 tab po qd ESCITALOPRAM OXALATE 20 MG TABS 662066 ESCITALOPRAM OXALATE Inactive ATENOLOL 25 MG TABS 1 tab po qd ATENOLOL 25 MG TABS 640094 ATENOLOL Inactive BENZTROPINE MESYLATE 1 MG TABS 1 tab po qd BENZTROPINE MESYLATE 1 MG TABS 095346 BENZTROPINE MESYLATE Inactive BUSPIRONE HCL 15 MG TABS 1 tab po TID BUSPIRONE HCL 15 MG TABS 201144 BUSPIRONE HCL Inactive LEVOFLOXACIN 500 MG TABS 1 tab po qd LEVOFLOXACIN 500 MG TABS 543929 LEVOFLOXACIN Inactive PREDNISONE 20 MG TABS 1 tab po qd PREDNISONE 20 MG TABS 334533 PREDNISONE Inactive MIRALAX POWD 1 capfull once daily MIRALAX POWD 993479 POLYETHYLENE GLYCOL 3350 Inactive VERAPAMIL HCL ER 180 MG CR-TABS 1 tab po bid VERAPAMIL HCL ER 180 MG CR-TABS VERAPAMIL HCL Inactive LORATADINE 10 MG TABS 1 tab po qd LORATADINE 10 MG TABS 436419 LORATADINE Inactive LYRICA 50 MG CAPS 1 tab po TID LYRICA 50 MG CAPS PREGABALIN Inactive ZALEPLON 10 MG CAPS 1 cap po every other night ZALEPLON 10 MG CAPS 299416 ZALEPLON Inactive SAPHRIS 5 MG SUBL 1 tab po qd SAPHRIS 5 MG SUBL ASENAPINE MALEATE Inactive TRAZODONE HCL 50 MG TABS 1/2 tab po qd prn for anxiety TRAZODONE HCL 50 MG TABS 627748 TRAZODONE HCL Inactive LATUDA 20 MG TABS Take one by mouth daily LATUDA 20 MG TABS LURASIDONE HCL Inactive LISINOPRIL 20 MG TABS 1 tab po qd LISINOPRIL 20 MG TABS 105568 LISINOPRIL Inactive SAPHRIS 10 MG SUBL 1 [...] twice daily BACTRIM DS 800-160 MG TAB 776550 TRIMETHOPRIM-SULFAMETHOXAZOLE Inactive MULTIVITAMINS CAPS Take one by mouth daily MULTIVITAMINS CAPS MULTIPLE VITAMIN Inactive MELATONIN 3 MG CAPS 2 po q hs MELATONIN 3 MG CAPS 944260 MELATONIN Inactive KEFLEX 500 MG ORAL CAPS 1 cap QID by mouth KEFLEX 500 MG ORAL CAPS 115054 CEPHALEXIN Inactive CLINDAMYCIN HCL 150 MG CAPS 1 four times a day CLINDAMYCIN HCL 150 MG CAPS 965569 CLINDAMYCIN HCL Inactive DIFLUCAN 150 MG TAB 1 tablet by mouth daily DIFLUCAN 150 MG TAB 791116 FLUCONAZOLE Inactive PROZAC 20 MG CAP Take one by mouth daily PROZAC 20 MG CAP 710278 FLUOXETINE HCL Inactive IBUPROFEN 600 MG TAB 1 po TID PRN IBUPROFEN 600 MG TAB 746306 IBUPROFEN Inactive VYVANSE 40 MG CAPS 1 daily, VYVANSE 40 MG CAPS LISDEXAMFETAMINE DIMESYLATE Inactive TRAZODONE HCL 100 MG TAB take 1 at bedtime TRAZODONE HCL 100 MG TAB 045661 TRAZODONE HCL Inactive AMITRIPTYLINE HCL 100 MG TAB one at hs AMITRIPTYLINE HCL 100 MG TAB 593501 AMITRIPTYLINE HCL Inactive AMLODIPINE BESYLATE 5 MG TABS 1 tablet by mouth daily AMLODIPINE BESYLATE 5 MG TABS 464580 AMLODIPINE BESYLATE Inactive LATUDA 80 MG TABS Take one by mouth daily LATUDA 80 MG TABS LURASIDONE HCL Inactive SAPHRIS 5 MG SUBL 1 po bid SAPHRIS 5 MG SUBL ASENAPINE MALEATE Inactive PREDNISONE 20 MG TAB 2 tabs daily for 4 days, 1 tab daily for 4 days, 1/2 tab daily for 4 days PREDNISONE 20 MG TAB 819758 PREDNISONE Inactive AMBIEN 5 MG ORAL TABS 1 tab at bedtime AMBIEN 5 MG ORAL TABS 370351 ZOLPIDEM TARTRATE Inactive PROZAC 20 MG ORAL CAPS 1 tab daily PROZAC 20 MG ORAL CAPS 577420 FLUOXETINE HCL Inactive ABILIFY 15 MG ORAL TABS 1 tab daily ABILIFY 15 MG ORAL TABS 523383 ARIPIPRAZOLE Inactive METOPROLOL TARTRATE 50 MG TAB 1 po bid METOPROLOL TARTRATE 50 MG TAB 255359 METOPROLOL TARTRATE Inactive TRAMADOL HCL 50 MG TABS 1-2 po TID PRN Pain TRAMADOL HCL 50 MG TABS 719609 TRAMADOL HCL Inactive PIROXICAM 20 MG CAPS 1 cap po qd PRN Pain PIROXICAM 20 MG CAPS 079727 PIROXICAM Inactive MINIPRESS 2 MG CAPS 4 cap po at night MINIPRESS 2 MG CAPS 421033 PRAZOSIN HCL Inactive MIRALAX PACK 1 po qd PRN Constipation MIRALAX PACK 145040 POLYETHYLENE GLYCOL 3350 Inactive METOPROLOL TARTRATE 25 MG ORAL TABS 1/2 tablet twice daily for heart rate and blood pressure METOPROLOL TARTRATE 25 MG ORAL TABS 142524 METOPROLOL TARTRATE Inactive VALIUM 5 MG TAB Take 1-2 tablets daily VALIUM 5 MG TAB 589436 DIAZEPAM Inactive FLAGYL 500 MG TAB 1 tablet by mouth bid FLAGYL 500 MG TAB 137368 METRONIDAZOLE Inactive DICLOFENAC POTASSIUM TABS Take 1 tablet twice a day (pt. is not sure of the dose.) DICLOFENAC POTASSIUM TABS DICLOFENAC POTASSIUM TABS Inactive ZITHROMAX Z-EARNEST 250 MG TABS 2 today and then 1 daily for 4 days ZITHROMAX Z-EARNEST 250 MG TABS 7495314 AZITHROMYCIN Inactive PREDNISONE 20 MG TABS 2 daily for 5 days then 1 daily for 5 days PREDNISONE 20 MG TABS 460021 PREDNISONE Inactive PROAIR HFA 108 (90 BASE) MCG/ACT AERS 2 puffs four times a day as needed 2015 PROAIR HFA 108 (90 BASE) MCG/ACT AERS ALBUTEROL SULFATE Inactive HYDROCODONE-ACETAMINOPHEN 5-325 MG TABS 1 to 2 four times a day as needed for pain use until can be seen by specialist HYDROCODONE- ACETAMINOPHEN 5-325 MG TABS 019613 HYDROCODONE-ACETAMINOPHEN Inactive TESSALON PERLES 100 MG CAP 1 to 2 tablets by mouth 3 times daily as needed for cough TESSALON PERLES 100 MG CAP 133742 BENZONATATE Inactive CHANTIX STARTING MONTH EARNEST 0.5 [...] Pain 2015 DICLOFENAC SODIUM 50 MG TBEC 425379 DICLOFENAC SODIUM Inactive TOPAMAX 50 MG ORAL TABS 1 tab twice daily TOPAMAX 50 MG ORAL TABS 546476 TOPIRAMATE Inactive VIIBRYD 10 MG ORAL TABS Take 1 tablet once a day VIIBRYD 10 MG ORAL TABS VILAZODONE HCL Inactive LEVOFLOXACIN 500 MG ORAL TABS po daily LEVOFLOXACIN 500 MG ORAL TABS 701488 LEVOFLOXACIN Inactive METHYLPREDNISOLONE 4 MG ORAL TABS po daily METHYLPREDNISOLONE 4 MG ORAL TABS 482320 METHYLPREDNISOLONE Inactive OXYCODONE HCL ER 10 MG ORAL T12A 1/2 tab by mouth every 4 hours prn OXYCODONE HCL ER 10 MG ORAL T12A OXYCODONE HCL Inactive FLAGYL 500 MG TAB 1 tablet by mouth bid FLAGYL 500 MG TAB 118866 METRONIDAZOLE Inactive MONISTAT 7 COMBO PACK WOODROW 100 & 2 MG-% (9GM) VAG KIT 1 applicatorful per vagina q pm x 7 MONISTAT 7 COMBO PACK WOODROW 100 & 2 MG-% (9GM) VAG KIT MICONAZOLE NITRATE Inactive BACTRIM DS 800-160 MG TABS 1 twice a day BACTRIM DS 800-160 MG TABS 378819 SULFAMETHOXAZOLE-TRIMETHOPRIM Inactive TRAMADOL HCL 50 MG TABS 1/2-1 tab TID PRN TRAMADOL HCL 50 MG TABS 609540 TRAMADOL HCL Inactive ABILIFY MAINTENA 400 MG IM SUSR 400mg injection every 26 days ABILIFY MAINTENA 400 MG IM SUSR ARIPIPRAZOLE Inactive KLONOPIN 1 MG ORAL TABS 1 tab po TID KLONOPIN 1 MG ORAL TABS 871069 CLONAZEPAM Inactive ADVAIR DISKUS 250-50 MCG/DOSE INH AEPB 1 puff twice a day for asthma ADVAIR DISKUS 250-50 MCG/DOSE INH AEPB FLUTICASONE- SALMETEROL Inactive BENADRYL 25 MG CAP 4 po at bedtime for insomnia BENADRYL 25 MG CAP DIPHENHYDRAMINE HCL Inactive PREDNISONE 20 MG TABS 2 daily for 5 days then 1 daily for 5 days PREDNISONE 20 MG TABS 485438 PREDNISONE Inactive HYDROCODONE-ACETAMINOPHEN 5-325 MG ORAL TABS 1 tab two times a day HYDROCODONE-ACETAMINOPHEN 5-325 MG ORAL TABS 406309 HYDROCODONE-ACETAMINOPHEN Inactive ZITHROMAX Z-EARNEST 250 MG TABS 2 today and then 1 daily for 4 days ZITHROMAX Z-EARNEST 250 MG TABS 1471480 AZITHROMYCIN Inactive GUAIFENESIN-CODEINE 100-10 MG/5ML SYRP 5ml every 4 to 6 hours as needed for cough GUAIFENESIN-CODEINE 100-10 MG/5ML SYRP 349922 GUAIFENESIN-CODEINE Inactive HALOPERIDOL 10 MG ORAL TABS 1 tab q.d HALOPERIDOL 10 MG ORAL TABS 024683 HALOPERIDOL Inactive ASPIRIN 325 MG ORAL TABS 1 tab q.d ASPIRIN 325 MG ORAL TABS 601238 ASPIRIN Inactive FLUTICASONE PROPIONATE 50 MCG/ACT SUSP 2 sprays each nostril daily before bed. FLUTICASONE PROPIONATE 50 MCG/ACT SUSP 3797251 FLUTICASONE PROPIONATE Inactive ZOFRAN 4 MG TABS 1 po q6hr PRN Nausea ZOFRAN 4 MG TABS 812377 ONDANSETRON HCL Inactive KEFLEX 500 MG CAP 1 po qid KEFLEX 500 MG CAP 633482 CEPHALEXIN Inactive ACETAMINOPHEN-CODEINE 120-12 MG/5ML SOLN 5 ml by mouth every 4-6 hours if needed for cough ACETAMINOPHEN-CODEINE 120-12 MG/5ML SOLN 535278 ACETAMINOPHEN-CODEINE Inactive PREDNISONE 20 MG TAB 1 tablet daily x 4 days PREDNISONE 20 MG TAB 463610 PREDNISONE Inactive TROPICAMIDE 0.5 % OPHTH SOLN 1 drop PRN eye spasms TROPICAMIDE 0.5 % OPHTH SOLN 315171 TROPICAMIDE Inactive LEVAQUIN 500 MG TABS 1 daily for infection LEVAQUIN 500 MG TABS 690356 LEVOFLOXACIN Inactive PREDNISONE 10 MG TABS 2 daily for 5 days then 1 daily for 5 days PREDNISONE 10 MG TABS 947418 PREDNISONE Inactive EQ NICOTINE 21 MG/24HR TRANS [...] for 2 days PREDNISONE 20 MG TAB 248449 PREDNISONE Inactive BACTRIM DS 800-160 MG TABS 1 po BID x 7 days BACTRIM DS 800-160 MG TABS 19820521 SULFAMETHOXAZOLE-TRIMETHOPRIM Inactive DIFLUCAN 150 MG TABS 1 pill every other day x 2 doses DIFLUCAN 150 MG TABS 995859 FLUCONAZOLE Inactive BACTRIM DS 800-160 MG TABS 1 pill by mouth twice daily BACTRIM DS 800-160 MG TABS 19820521 SULFAMETHOXAZOLE-TRIMETHOPRIM Inactive KEFLEX 500 MG CAP 1 po TID x 10 days KEFLEX 500 MG CAP 557506 CEPHALEXIN Inactive Advance Directives Directive Description Start [...] % 11.0-15.0 platelet count 443 THOUSAND/UL 10*3/mm3 120-000 1277/03/01 mean platelet volume 8.2 fL 7.5-12.5 leukocyte [...] % 11.0-15.0 platelet count 349 THOUSAND/UL 10*3/mm3 006-301 6004/04/12 mean platelet volume 8.4 fL 7.5-12.5 Lab [...] 369 10^3/MM^3 10*3/mm3 142-424 Lab Report: Chlamydia/GC [id number] - Lab chlamydia DNA probe NOT DETECTED NOT DETECTED Lab Report: Chlamydia/GC [id number] - Microbiology Neisseria gonorrhoeae DNA probe NOT DETECTED NOT DETECTED Lab Report: Chlamydia/GC APTIMA/[id number], Urinalysis, Complete, with Reflex ... - Lab chlamydia DNA probe NOT DETECTED NOT DETECTED Lab Report: Chlamydia/GC APTIMA/[id number], Urinalysis, Complete, with Reflex ... - Microbiology Neisseria gonorrhoeae DNA probe NOT DETECTED NOT DETECTED Lab Report: Chlamydia/GC APTIMA/[id number], Urinalysis, Complete, with Reflex ... - Urinalysis microalbumin/total urine volume 2 mg/L Units converted. See lab report for original value. microalbumin/creatinine ratio, urine 9 MCG/MG CREAT mg/L <30 Lab Report: Comp. Metabolic Panel - Chemistry sodium, serum 140 mmol/L 298-228 4911/08/08 carbon dioxide, venous blood 33.7 mmol/L 21.0-32.0 [...] mg/dL Encounters Code Encounter Date Provider Facility CPT-69975 Level 4 Est. Patient 10:49:34 CDT Suzan Boo [facility] CPT-17242 Level 3 Est. Patient 10:00:25 CDT Suzan Boo [facility] CPT-65360 Level 3 Est. [facility] 10:29:[facility] 3 Est[facility] Patient 11:04:38 CDT Renzo Thornton [facility] CPT-10100 Level 3 Est. Patient 11:15:58 BOX SEALING MACHINE OPERATOR Renzo Thornton [facility] CPT-44019 Level 3 Est. Patient 15:28:23 BOX SEALING MACHINE OPERATOR Suzan Boo [facility] CPT-43888 Level 4 Est. Patient 10:20:54 BOX SEALING MACHINE OPERATOR Suzan Boo [facility] CPT-52117 Level 3 Est. Patient 11:47:37 BOX SEALING MACHINE OPERATOR Ahmet Carbajal MD [facility] CPT-57965 Level 3 Est. Patient 10:40:11 BOX SEALING MACHINE OPERATOR Ahmet Carbajal MD [facility] CPT-75191 Level 3 Est. Patient 15:07:06 BOX SEALING MACHINE OPERATOR Neeraj Collins MD [facility] CPT-56465 Level 4 Est. Patient 14:45:00 BOX SEALING MACHINE OPERATOR Ahmet Carbajal MD [facility] CPT-73609 Level 3 Est. Patient 13:59:59 CDT Luigi Martínez [facility] CPT-67991 Level 3 Est. Patient 18:18:53 CDT Neeraj Collins MD [facility] CPT-35212 Level 3 Est. Patient 15:50:44 CDT Vishal Hui MD [facility] CPT-26687 Level 3 Est. Patient 11:36:17 CDT Ahmet Carbajal MD [facility] CPT-39161 Level 3 Est. Patient 13:29:16 CDT Vishal Hui MD [facility] CPT-31647 Level 3 Est. Patient 14:27:52 CDT Neeraj Collins MD [facility] CPT-05813 Level 3 Est. Patient 08:56:03 CDT Luigi Martínez [facility] CPT-63760 Level 4 Est. Patient 12:11:48 CDT Fabiola Johnson [facility] CPT-80122 Level 3 New Patient 16:53:37 CDT Albert Caldera MD [facility] CPT-30071 Level 3 Est. Patient 11:25:49 CDT Renzo Thornton DO [facility] CPT-90202 Level 3 Est. Patient 15:22:01 CDT Ahmet Carbajal MD [facility] CPT-08431 Level 4 Est. Patient 09:00:51 BOX SEALING MACHINE OPERATOR Vishal Hui MD [facility] CPT-83341 Level 3 Est. Patient 11:37:33 BOX SEALING MACHINE OPERATOR Vishal Hui MD [facility] CPT-38503 Level 3 Est. Patient 08:41:09 BOX SEALING MACHINE OPERATOR Vishal Hui MD [facility] CPT-23182 Level 4 Est. Patient 10:19:35 BOX SEALING MACHINE OPERATOR Vishal Hui MD [facility] CPT-46023 Level 3 Est. Patient 13:35:45 CDT Vishal Hui MD [facility] CPT-53025 Level 4 Est. Patient 10:08:37 CDT Vishal Hui MD [facility] CPT-61733 Level 3 Est. Patient 11:22:10 CDT Vishal Hui MD [facility] CPT-53901 Level 3 Est. Patient 11:03:32 CDT Sahara Rodriguez MD [facility]-87718 Level 3 Est. Patient 09:41:35 CDT Vishal Hui MD [facility]-38466 Level 3 Est. Patient 12:00:41 CDT Neeraj Collins MD [facility] CPT-98653 Level 3 Est. Patient 09:16:24 CDT Vishal Hui MD [facility] CPT-00903 Level 4 Est. Patient 13:59:09 CDT Neeraj Collins MD [facility]-96488 Level 3 Est. Patient 15:19:43 CDT Renzo Thornton DO [facility] CPT-11837 Level 3 Est. Patient 18:10:26 CDT Sahara Rodriguez MD [facility]-04104 Level 3 Est. Patient 14:49:50 CDT Vishal Hui MD [facility] CPT-34712 Level 4 Est. Patient 18:41:46 CDT Neeraj Collins MD [facility]-10130 Level 4 Est. Patient 09:18:38 BOX SEALING MACHINE OPERATOR Vishal Hui MD [facility] CPT-29464 Level 3 Est. Patient 14:43:55 BOX SEALING MACHINE OPERATOR Vishal Hui MD [facility] CPT-53123 Level 3 Est. Patient 15:26:33 BOX SEALING MACHINE OPERATOR Sahara Rodriguez MD [facility]-62879 Level 3 Est. Patient 10:32:14 BOX SEALING MACHINE OPERATOR Vishal Hui MD [facility]-36137 Level 3 Est. Patient 15:12:52 BOX SEALING MACHINE OPERATOR Vishal Hui MD [facility] CPT-11958 Level 4 Est. Patient 09:19:27 CDT Vishal Hui MD [facility] CPT-98657 Level 3 Est. Patient 15:53:00 CDT Renzo Thornton [facility] CPT-32472 Level 3 Est. Patient 15:50:30 CDT Renzo Thornton [facility] CPT-10825 Level 3 Est. Patient 16:55:24 CDT Vishal Hui MD [facility] Procedures Code Procedure Name Date Entry Date Standard Description CPT-77541 Venipuncture Draw Fee 08:41:12 CDT CPT-60225 Abd compl w upright - XRAY USE ONLY 10:27:59 CDT 06/28 CPT-62032 Smoking Cessation counseling 11:15:58 BOX SEALING MACHINE OPERATOR CPT-G0439 [facility] Annual Wellness Exam 09:30:58 BOX SEALING MACHINE OPERATOR CPT-20106 TSH - LAB USE ONLY 08:50:26 BOX SEALING MACHINE OPERATOR CPT-58475 CBC - LAB USE ONLY 08:50:26 BOX SEALING MACHINE OPERATOR CPT-63414 Venipuncture Draw Fee 08:50:26 BOX SEALING MACHINE OPERATOR CPT-22954 Abx/Therapy Injection 17:34:30 BOX SEALING MACHINE OPERATOR CPT-47631 Nexplanon Removal with Reinsertion 14:09:32 CDT CPT-J7307 Nexplanon (Implant) 14:09:32 CDT CPT-OV Office Visit 14:09:32 CDT CPT-42116 UA w micro - LAB USE ONLY 16:21:13 CDT CPT-10244 [place] Mount - LAB USE ONLY 16:21:13 CDT CPT-31844 First Vx - Ix admin for Medicare patients 14:37:47 CDT CPT-04674 Fluzone Preservative Free Intramuscular Suspension 14:37 :47 CDT CPT-31903 Abx/Therapy Injection 13:54:22 CDT CPT-50041 Abx/Therapy Injection 08:47:09 CDT CPT-93703 Abx/Therapy Injection 13:29:56 CDT CPT-59990 Abx/Therapy Injection 08:36:16 CDT CPT-65824 Wet [place] - LAB USE ONLY 17:44:58 CDT CPT-16402 UA w micro - LAB USE ONLY 17:44:58 CDT CPT-81483 CMP - LAB USE ONLY 17:44:58 CDT CPT-86407 Venipuncture Draw Fee 17:44:58 CDT CPT-03286 Cervical Min 4V - XRAY USE ONLY 09:01:40 CDT CPT-19421 Chest 2V Frontal and Lat - XRAY USE ONLY 11:06:31 CDT CPT-13899 EKG Trac and Interp - XRAY USE ONLY 11:31:43 CDT 08/26 CPT-J3420 Vitamin B12 1000mcg (Cyanocobalamin) 08:10:26 BOX SEALING MACHINE OPERATOR 04/12 CPT-15146 Abx/Therapy Injection 08:10:26 BOX SEALING MACHINE OPERATOR CPT-G0438 Initial Annual Wellness Exam 19:01:01 BOX SEALING MACHINE OPERATOR CPT-J3420 Vitamin B12 1000mcg (Cyanocobalamin) 16:57:46 CDT 08/14 CPT-79055 Recombivax HB Injection Suspension 5 MCG/0.5ML 08:37:50 BOX SEALING MACHINE OPERATOR CPT-16463 Immunization Single Admin 08:37:50 BOX SEALING MACHINE OPERATOR CPT-J3420 Vitamin B12 1000mcg (Cyanocobalamin) 08:32:16 BOX SEALING MACHINE OPERATOR 03/11 CPT-94517 Abx/Therapy Injection 08:32:16 BOX SEALING MACHINE OPERATOR CPT-63031 Chest 2V Frontal and Lat 11:46:38 BOX SEALING MACHINE OPERATOR CPT-81068 Venipuncture Draw Fee 09:12:45 BOX SEALING MACHINE OPERATOR CPT-J3420 Vitamin B12 1000mcg (Cyanocobalamin) 08:50:15 BOX SEALING MACHINE OPERATOR 02/08 CPT-66381 Abx/Therapy Injection 08:50:15 BOX SEALING MACHINE OPERATOR CPT-Cryo Cryotherapy 10:19:35 BOX SEALING MACHINE OPERATOR CPT-000 Give Appropriate Flu Vaccine 09:22:16 CDT CPT-J3420 Vitamin B12 1000mcg (Cyanocobalamin) 19:08:57 CDT 01/11 CPT-55458 Abx/Therapy Injection 19:08:57 CDT CPT-J3420 Vitamin B12 1000mcg (Cyanocobalamin) 08:19:08 CDT 12/11 CPT-48001 Abx/Therapy Injection 08:19:08 CDT CPT-J3420 Vitamin B12 1000mcg (Cyanocobalamin) 14:48:00 CDT 11/09 CPT-16970 Abx/Therapy Injection 14:47:59 CDT CPT-J3420 Vitamin B12 1000mcg (Cyanocobalamin) 08:34:04 CDT 10/09 CPT-62191 Abx/Therapy Injection 08:34:04 CDT CPT-J3420 Vitamin B12 1000mcg (Cyanocobalamin) 09:18:52 CDT 09/11 CPT-36563 Abx/Therapy Injection 09:18:52 CDT CPT-J3420 Vitamin B12 1000mcg (Cyanocobalamin) 08:35:44 CDT 09/04 CPT-08252 Abx/Therapy Injection 08:35:44 CDT CPT-08531 Immunization Single Admin 11:07:16 CDT CPT-61467 Hepatitis B adult IM 11:07:16 CDT CPT-J3420 Vitamin B12 1000mcg (Cyanocobalamin) 11:00:49 CDT 08/28 CPT-J1040 Depo Medrol 80 mg (Methyl Prednisolone Acetate) 11:00: 49 CDT CPT-81672 Abx/Therapy Injection 11:00:49 CDT CPT-J1040 Depo Medrol 80 mg (Methyl Prednisolone Acetate) 09:16: 23 CDT CPT-J3420 Vitamin B12 1000mcg (Cyanocobalamin) 08:27:05 CDT 08/20 CPT-41891 Abx/Therapy Injection 08:27:05 CDT CPT-15488 Recombivax HB Injection Suspension 5 MCG/0.5ML 10:00:41 CDT CPT-10469 Administration single or combination vaccine inc oral 10 :00:41 CDT CPT-67529 Sono transvag pelvis non OB uterus ovaries cervix 16:36: 57 CDT CPT-52416 LS spine comp w obliq 09:50:55 BOX SEALING MACHINE OPERATOR CPT-17113 Abd compl w upright 09:50:55 BOX SEALING MACHINE OPERATOR CPT-J1100 Decadron 4mg (Dexamethasone) 15:51:24 BOX SEALING MACHINE OPERATOR CPT-J1030 Depo Medrol 40 mg (Methyl Prednisolone Acetate) 15:51: 24 BOX SEALING MACHINE OPERATOR CPT-96929 Abx/Therapy Injection 15:51:24 BOX SEALING MACHINE OPERATOR CPT-J1100 Decadron 4mg (Dexamethasone) 15:26:33 BOX SEALING MACHINE OPERATOR CPT-J1030 Depo Medrol 40 mg (Methyl Prednisolone Acetate) 15:26: 33 BOX SEALING MACHINE OPERATOR CPT-98058 Sono retroperitoneal complete kidneys and bladder 17:15: 30 CDT CPT-50702 Abd compl w upright 16:09:25 CDT CPT-J1100 Decadron 8mg (Dexamethasone) 17:07:57 CDT CPT-77777 Abx/Therapy Injection 17:07:57 CDT CPT-J1100 Decadron 8mg (Dexamethasone) 16:55:24 CDT CPT-70350 Chest 2V Frontal and Lat 16:32:44 CDT
--- OUTSIDE RECORDS SUMMARY | 2016-11-04 23:32 | XMS REPORT | Clinical Summary ---
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 Other specified cardiac dysrhythmias Schizoaffective disorder 295.70 Active Vishal Hui MD Schizoaffective disorder, unspecified Irritable bowel syndrome 564.1 Active iVshal Hui MD Irritable bowel syndrome Low back [...] Active Ahmet Carbajal MD Generalized anxiety disorder Analysis Lead well woman exam V72.31 Active Suzan [...] R D ICD-530.81 Inactive Vishal Hiu MD Health screening ICD-V70.0 Inactive Suzan Boo [...] 4-6 hours if needed for cough ACETAMINOPHEN-CODEINE 21190127037 Active Renzo Thornton DO Active PREDNISONE 20 MG TAB 1 tablet daily x 4 days PREDNISONE 16604073101 Active Renzo Thornton DO Active FLOVENT HFA 110 MCG/ACT AERO 2 puffs inhaled b.i.d. FLUTICASONE PROPIONATE HFA 63389966062 Active Renzo Thornton DO Active TROPICAMIDE 0.5 % OPHTH SOLN 1 drop PRN eye spasms TROPICAMIDE 51619297437 Active Samantha Stephan RMA Active RISPERDAL 4 MG ORAL TABS 1 tab at bedtime RISPERIDONE 39659396466 Active Samantha Stephan RMA Active LEVAQUIN 500 MG TABS 1 daily for infection LEVOFLOXACIN 80672068725 Active Suzan Boo APRN Active TESSALON PERLES 100 MG CAPS 1 three times a day as needed for cough BENZONATATE 30086955628 Active Suzan Boo APRN Active ZOFRAN 4 MG TABS 1 po q6hr PRN Nausea ONDANSETRON HCL No Longer Active Suzan Boo APRN Active FLUTICASONE PROPIONATE 50 MCG/ACT SUSP 2 sprays each nostril daily before bed. FLUTICASONE PROPIONATE 28035940844 No Longer Active Suzan Boo APRN Active ASPIRIN 325 MG ORAL TABS 1 tab q.d ASPIRIN 85263858813 No Longer Active Suzan Boo APRN Active HALOPERIDOL 10 MG ORAL TABS 1 tab q.d HALOPERIDOL 06543414656 No Longer Active Suzan Boo APRN Active GUAIFENESIN-CODEINE 100-10 MG/5ML SYRP 5ml every 4 to 6 hours as needed for cough GUAIFENESIN-CODEINE 83235715327 No Longer Active Suzan Boo APRN Active ZITHROMAX Z-EARNEST 250 MG TABS 2 today and then 1 daily for 4 days AZITHROMYCIN 37690994421 No Longer Active Suzan Boo APRN Active PREDNISONE 10 MG TABS 2 daily for 5 days then 1 daily for 5 days PREDNISONE 40592304060 Active Suzan Boo APRN Active CLONAZEPAM 1 MG ORAL TABS 1 twice a day and an additional 1 tablet every other day as needed for pseudoseizures or anxiety CLONAZEPAM 45128048839 Active Ahmet Carbajla MD Active HYDROCODONE-ACETAMINOPHEN 5-325 MG ORAL TABS 1 tab two times a day HYDROCODONE-ACETAMINOPHEN 22970713106 No Longer Active Ahmet Carbajal MD Active LAMICTAL 100 MG ORAL TABS 1 tab 2 times qd. LAMOTRIGINE 05279770635 Active Ahmet Carbajal MD Active PREDNISONE 20 MG TABS 2 daily for 5 days then 1 daily for 5 days PREDNISONE 31739863359 No Longer Active Ahmet Carbajal MD Active FLUTICASONE PROPIONATE 50 MCG/ACT SUSP 1 to 2 sprays each nostril daily for allergies FLUTICASONE PROPIONATE 21851996281 Active Tila Valenzuela Active BENADRYL 25 MG CAP 4 po at bedtime for insomnia DIPHENHYDRAMINE HCL 43584213379 No Longer Active Ahmet Carbajal MD Active ADVAIR DISKUS 250-50 MCG/DOSE INH AEPB 1 puff twice a day for asthma FLUTICASONE-SALMETEROL 51233129172 No Longer Active Ahmet Carbajal MD Active KLONOPIN 1 MG ORAL TABS 1 tab po TID CLONAZEPAM 35689906029 No Longer Active Ahmet Carbajal MD Active ABILIFY MAINTENA 400 MG IM SUSR 400mg injection every 26 days ARIPIPRAZOLE 60232712356 No Longer Active Ahmet Carbajal MD Active TRAMADOL HCL 50 MG TABS 1/2-1 tab TID PRN TRAMADOL HCL 13538305874 No Longer Active Ahmet Carbajal MD Active BACTRIM DS 800-160 MG TABS 1 twice a day SULFAMETHOXAZOLE- TRIMETHOPRIM 20258167215 No Longer Active Ahmet Carbajal MD Active PROAIR HFA 108 (90 BASE) MCG/ACT AERS 2 puffs four times a day as needed 2015 ALBUTEROL SULFATE 64728324593 Active Ahmet Carbajal MD Active EQ NICOTINE 21 MG/24HR TRANS PT24 Apply daily to stop smoking NICOTINE 26736359456 Active Ahmet Carbajal MD Active MONISTAT 7 COMBO PACK WOODROW 100 & 2 MG-% (9GM) VAG KIT 1 applicatorful per vagina q pm x 7 MICONAZOLE NITRATE 19134634212 No Longer Active Ahmet Carbajal MD Active FLAGYL 500 MG TAB 1 tablet by mouth bid METRONIDAZOLE 15202344160 No Longer Active Ahmet Carbajal MD Active OXYCODONE HCL ER 10 MG ORAL T12A 1/2 tab by mouth every 4 hours prn OXYCODONE HCL 70230740681 No Longer Active Ahmet Carbajal MD Active METHYLPREDNISOLONE 4 MG ORAL TABS po daily METHYLPREDNISOLONE 31675905065 No Longer Active Ahmet Carbajal MD Active LEVOFLOXACIN 500 MG ORAL TABS po daily LEVOFLOXACIN 46914305168 No Longer Active Ahmet Carbajal MD Active VIIBRYD 10 MG ORAL TABS Take 1 tablet once a day VILAZODONE HCL 16863682470 No Longer Active Ahmet Carbajal MD Active TOPAMAX 50 MG ORAL TABS 1 tab twice daily TOPIRAMATE 94984199733 No Longer Active Ahmet Carbajal MD Active DICLOFENAC SODIUM 50 MG TBEC 1 tablet by mouth four times daily PRN Pain 2015 DICLOFENAC SODIUM 54689233003 No Longer Active Ahmet Carbajal MD Active ADZENYS XR-ODT 6.3 MG ORAL TBED 1 tab po daily for ADHD AMPHETAMINE 66507559762 No Longer Active Ahmet Carbajal MD Active CHANTIX 1 MG TABS 1 twice a day to help quit smoking VARENICLINE TARTRATE 63183240429 No Longer Active Dipika Burgos MD Active CHANTIX STARTING MONTH EARNEST 0.5 MG X 11 & 1 MG X 42 TABS take as directed 2015 VARENICLINE TARTRATE 87675368632 No Longer Active Dipika Burgos MD Active TESSALON PERLES 100 MG CAP 1 to 2 tablets by mouth 3 times daily as needed for cough BENZONATATE 31713733394 No Longer Active Luigi Martínez APRN Active IMITREX 50 MG ORAL TABS 0.5 po x 1 PRN Headache. May repeat dose x 1 in 2 hours if needed SUMATRIPTAN SUCCINATE 13200500384 Active Ahmet Carbajal MD Active HYDROCODONE-ACETAMINOPHEN 5-325 MG TABS 1 to 2 four times a day as needed for pain use until can be seen by specialist HYDROCODONE- ACETAMINOPHEN 47047516529 No Longer Active Vishal Hui MD Active PROAIR HFA 108 (90 BASE) MCG/ACT AERS 2 puffs four times a day as needed 2015 ALBUTEROL SULFATE 43409073542 No Longer Active Vishal Hui MD Active PREDNISONE 20 MG TABS 2 daily for 5 days then 1 daily for 5 days PREDNISONE 17577656288 No Longer Active Vishal Hui MD Active ZITHROMAX Z-EARNEST 250 MG TABS 2 today and then 1 daily for 4 days AZITHROMYCIN 35951269931 No Longer Active Vishal Hui MD Active DICLOFENAC POTASSIUM TABS Take 1 tablet twice a day (pt. is not sure of the dose.) DICLOFENAC POTASSIUM TABS 25126944938 No Longer Active Vishal Hui MD Active VERAPAMIL HCL ER 120 MG ORAL CR-TABS Take 1 tablet by mouth twice a day. VERAPAMIL HCL 97129605051 Active Vishal Hui MD Active FLAGYL 500 MG TAB 1 tablet by mouth bid METRONIDAZOLE 36862075384 No Longer Active Vishal Hui MD Active VALIUM 5 MG TAB Take 1-2 tablets daily DIAZEPAM 57119662577 No Longer Active Fabiola Johnson APRN Active METOPROLOL TARTRATE 25 MG ORAL TABS 1/2 tablet twice daily for heart rate and blood pressure METOPROLOL TARTRATE 06593593492 No Longer Active Fabiola Johnson APRN Active MIRALAX ORAL POWD 17GMS DAILY IN WATER POLYETHYLENE GLYCOL 3350 59157809091 Active TAMARA Casey Active MIRALAX PACK 1 po qd PRN Constipation POLYETHYLENE GLYCOL 3350 48887746735 No Longer Active Ahmet Carbajal MD Active MINIPRESS 2 MG CAPS 4 cap po at night PRAZOSIN HCL 49760168751 No Longer Active Ahmet Carbajal MD Active PIROXICAM 20 MG CAPS 1 cap po qd PRN Pain PIROXICAM 33275495721 No Longer Active Ahmet Carbajal MD Active TRAMADOL HCL 50 MG TABS 1-2 po TID PRN Pain TRAMADOL HCL 81041867355 No Longer Active Ahmet Carbajal MD Active METOPROLOL TARTRATE 50 MG TAB 1 po bid METOPROLOL TARTRATE 83060362331 No Longer Active Ahmet Carbajal MD Active ABILIFY 15 MG ORAL TABS 1 tab daily ARIPIPRAZOLE 17479644184 No Longer Active Ahmet Carbajal MD Active PROZAC 20 MG ORAL CAPS 1 tab daily FLUOXETINE HCL 85153687401 No Longer Active Ahmet Carbajal MD Active AMBIEN 5 MG ORAL TABS 1 tab at bedtime ZOLPIDEM TARTRATE 09119995084 No Longer Active Ahmet Carbajal MD Active PREDNISONE 20 MG TAB 2 tabs daily for 4 days, 1 tab daily for 4 days, 1/2 tab daily for 4 days PREDNISONE 89731684853 No Longer Active Ahmet Carbajal MD Active KEFLEX 500 MG CAP 1 po TID x 10 days CEPHALEXIN 50343617219 No Longer Active Vishal Hui MD Active SAPHRIS 5 MG SUBL 1 po bid ASENAPINE MALEATE 29966526624 No Longer Active Jillina Frazell [employer] AR[employer]ANGEMENT COUNSELOR Active LATUDA 80 MG TABS Take one by mouth daily LURASIDONE HCL 09223155927 No Longer Active Jillina Frazell [employer]ER[employer] 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 COUNSELOR Active AMLODIPINE BESYLATE 5 MG TABS 1 tablet by mouth daily AMLODIPINE BESYLATE 90792124849 No Longer Active Jillina Frazell [employer]ER[employer] 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 COUNSELOR Active AMITRIPTYLINE HCL 100 MG TAB one at hs AMITRIPTYLINE HCL 75513964226 No Longer Active Vishal Hui MD Active TRAZODONE HCL 100 MG TAB take 1 at bedtime TRAZODONE HCL 80641515177 No Longer Active Vishal Hui MD Active VYVANSE 40 MG CAPS 1 daily, LISDEXAMFETAMINE DIMESYLATE 66365518170 No Longer Active Vishal Hui MD Active IBUPROFEN 600 MG TAB 1 po TID PRN IBUPROFEN 80534256484 No Longer Active Vishal Hui MD Active PROZAC 20 MG CAP Take one by mouth daily FLUOXETINE HCL 87403372282 No Longer Active Vishal Hui MD Active BACTRIM DS 800-160 MG TABS 1 pill by mouth twice daily SULFAMETHOXAZOLE-TRIMETHOPRIM 20937496544 No Longer Active Sahara Rodriguez MD PhD Active DIFLUCAN 150 MG TAB 1 tablet by mouth daily FLUCONAZOLE 44229448855 No Longer Active Vishal Hui MD Active TIZANIDINE HCL 4 MG TABS 1 po q6hr PRN Muscle Spasm/Back Pain TIZANIDINE HCL 17566343487 Active Vishal Hui MD Active CLINDAMYCIN HCL 150 MG CAPS 1 four times a day CLINDAMYCIN HCL 26630683567 No Longer Active Neeraj Collins MD Active KEFLEX 500 MG ORAL CAPS 1 cap QID by mouth CEPHALEXIN 27571866489 No Longer Active Neeraj Collins MD Active DIFLUCAN 150 MG TABS 1 pill every other day x 2 doses FLUCONAZOLE 12013862818 No Longer Active Sahara Rodriguez MD PhD Active MELATONIN 3 MG CAPS 2 po q hs MELATONIN 26972531750 No Longer Active Sahara Rodriguez MD PhD Active MULTIVITAMINS CAPS Take one by mouth daily MULTIPLE VITAMIN 73868670530 No Longer Active Sahara Rodriguez MD PhD Active BACTRIM DS 800-160 MG TAB 1 tab by mouth twice daily TRIMETHOPRIM-SULFAMETHOXAZOLE 35255297932 No Longer Active Sahara Rodriguez MD PhD Active [facility] PROBIOTIC ORAL CHEW 2 daily po PROBIOTIC PRODUCT 02434202662 No Longer Active Sahara Rodriguez MD PhD Active BACTRIM DS 800-160 MG TABS 1 po BID x 7 days SULFAMETHOXAZOLE-TRIMETHOPRIM 18240479725 No Longer Active Vishal Hui MD Active CHANTIX STARTING MONTH EARNEST 0.5 MG X 11 & 1 MG X 42 TABS 0.5mg daily for 3 days , then 0.5mg BID for 4 days, then 1mg BID VARENICLINE TARTRATE 15088538358 No Longer Active TAMARA Gray Active VERAPAMIL HCL CR 120 MG TAB CR 1 po bid VERAPAMIL HCL 31774178531 No Longer Active Vishal Hui MD Active METOPROLOL SUCCINATE 50 MG TB24 1 tablet by mouth daily METOPROLOL SUCCINATE 56874803379 No Longer Active Vishal Hui MD Active SAPHRIS 10 MG SUBL 1 tab po bid ASENAPINE MALEATE 63064106845 No Longer Active Vishal Hui MD Active LISINOPRIL 20 MG TABS 1 tab po qd LISINOPRIL 19967696323 No Longer Active Vishal Hui MD Active LATUDA 20 MG TABS Take one by mouth daily LURASIDONE HCL 19609485237 No Longer Active Vishal Hui MD Active TRAZODONE HCL 50 MG TABS 1/2 tab po qd prn for anxiety TRAZODONE HCL 59290871313 No Longer Active Vishal Hui MD Active OMEPRAZOLE 20 MG TBEC 1 po q a.m. 30min prior to first food intake OMEPRAZOLE 95540727542 Active TAMARA Casey Active RANITIDINE HCL 150 MG CAPS 1 twice a day RANITIDINE HCL 53110645140 Active Jilljanee Martínez APRN Active LINZESS 290 MCG CAPS Take one by mouth daily LINACLOTIDE 31298562761 No Longer Active Vishal Hui MD Active SAPHRIS 5 MG SUBL 1 tab po qd ASENAPINE MALEATE 97801059665 No Longer Active Vishal Hui MD Active ZALEPLON 10 MG CAPS 1 cap po every other night ZALEPLON 65631616415 No Longer Active Vishal Hui MD Active LYRICA 50 MG CAPS 1 tab po TID PREGABALIN 07915034406 No Longer Active Vishal Hui MD Active LORATADINE 10 MG TABS 1 tab po qd LORATADINE 55478585538 No Longer Active Vishal Hui MD Active VERAPAMIL HCL ER 180 MG CR-TABS 1 tab po bid VERAPAMIL HCL 77907703584 No Longer Active Vishal Hui MD Active MIRALAX POWD 1 capfull once daily POLYETHYLENE GLYCOL 3350 85194922171 No Longer Active Vishal Hui MD Active PREDNISONE 20 MG TABS 1 tab po qd PREDNISONE 22895483374 No Longer Active Renzo Thornton DO Active LEVOFLOXACIN 500 MG TABS 1 tab po qd LEVOFLOXACIN 05354976073 No Longer Active Renzo Thornton DO Active BUSPIRONE HCL 15 MG TABS 1 tab po TID BUSPIRONE HCL 64744549657 No Longer Active Renzo Thornton DO Active BENZTROPINE MESYLATE 1 MG TABS 1 tab po qd BENZTROPINE MESYLATE 87212528279 No Longer Active Renzo Thornton DO Active ATENOLOL 25 MG TABS 1 tab po qd ATENOLOL 24926385509 No Longer Active Renzo Thornton DO Active ESCITALOPRAM OXALATE 20 MG TABS 1 tab po qd ESCITALOPRAM OXALATE 51336436675 No Longer Active Renzo Thornton DO Active ADVAIR DISKUS 250-50 MCG/DOSE AEPB 1 puff BID FLUTICASONE-SALMETEROL 10252170277 No Longer Active Renzo Thornton DO Active PREDNISONE 20 MG TAB 2 tabs daily for 3 days, 1 tab daily for 3 days, 1/2 tab daily for 2 days PREDNISONE 63420095121 No Longer Active Vishal Hui MD Active CEFDINIR 300 MG CAPS by mouth twice a day CEFDINIR 53687186588 No Longer Active Vishal Hui MD Active LANSOPRAZOLE 30 MG CPDR 1 cap po qd LANSOPRAZOLE 54264706887 No Longer Active Vishal Hui MD Active BACLOFEN 20 MG TABS 1 tab po tid BACLOFEN 36221099750 No Longer Active Vishal Hui MD Active ADVAIR DISKUS 250-50 MCG/DOSE AEPB 1 puff BID ADVAIR DISKUS 250-50 MCG/DOSE AEPB FLUTICASONE-SALMETEROL Inactive ESCITALOPRAM OXALATE 20 MG TABS 1 tab po qd ESCITALOPRAM OXALATE 20 MG TABS 644800 ESCITALOPRAM OXALATE Inactive ATENOLOL 25 MG TABS 1 tab po qd ATENOLOL 25 MG TABS 434634 ATENOLOL Inactive BENZTROPINE MESYLATE 1 MG TABS 1 tab po qd BENZTROPINE MESYLATE 1 MG TABS 367545 BENZTROPINE MESYLATE Inactive BUSPIRONE HCL 15 MG TABS 1 tab po TID BUSPIRONE HCL 15 MG TABS 828031 BUSPIRONE HCL Inactive LEVOFLOXACIN 500 MG TABS 1 tab po qd LEVOFLOXACIN 500 MG TABS 476948 LEVOFLOXACIN Inactive PREDNISONE 20 MG TABS 1 tab po qd PREDNISONE 20 MG TABS 606782 PREDNISONE Inactive MIRALAX POWD 1 capfull once daily MIRALAX POWD 455380 POLYETHYLENE GLYCOL 3350 Inactive VERAPAMIL HCL ER 180 MG CR-TABS 1 tab po bid VERAPAMIL HCL ER 180 MG CR-TABS VERAPAMIL HCL Inactive LORATADINE 10 MG TABS 1 tab po qd LORATADINE 10 MG TABS 954182 LORATADINE Inactive LYRICA 50 MG CAPS 1 tab po TID LYRICA 50 MG CAPS PREGABALIN Inactive ZALEPLON 10 MG CAPS 1 cap po every other night ZALEPLON 10 MG CAPS 147669 ZALEPLON Inactive SAPHRIS 5 MG SUBL 1 tab po qd SAPHRIS 5 MG SUBL ASENAPINE MALEATE Inactive TRAZODONE HCL 50 MG TABS 1/2 tab po qd prn for anxiety TRAZODONE HCL 50 MG TABS 057477 TRAZODONE HCL Inactive LATUDA 20 MG TABS Take one by mouth daily LATUDA 20 MG TABS LURASIDONE HCL Inactive LISINOPRIL 20 MG TABS 1 tab po qd LISINOPRIL 20 MG TABS 753506 LISINOPRIL Inactive SAPHRIS 10 MG SUBL 1 [...] twice daily BACTRIM DS 800-160 MG TAB 654906 TRIMETHOPRIM-SULFAMETHOXAZOLE Inactive MULTIVITAMINS CAPS Take one by mouth daily MULTIVITAMINS CAPS MULTIPLE VITAMIN Inactive MELATONIN 3 MG CAPS 2 po q hs MELATONIN 3 MG CAPS 898337 MELATONIN Inactive KEFLEX 500 MG ORAL CAPS 1 cap QID by mouth KEFLEX 500 MG ORAL CAPS 615818 CEPHALEXIN Inactive CLINDAMYCIN HCL 150 MG CAPS 1 four times a day CLINDAMYCIN HCL 150 MG CAPS 233882 CLINDAMYCIN HCL Inactive DIFLUCAN 150 MG TAB 1 tablet by mouth daily DIFLUCAN 150 MG TAB 396703 FLUCONAZOLE Inactive PROZAC 20 MG CAP Take one by mouth daily PROZAC 20 MG CAP 113675 FLUOXETINE HCL Inactive IBUPROFEN 600 MG TAB 1 po TID PRN IBUPROFEN 600 MG TAB 061914 IBUPROFEN Inactive VYVANSE 40 MG CAPS 1 daily, VYVANSE 40 MG CAPS LISDEXAMFETAMINE DIMESYLATE Inactive TRAZODONE HCL 100 MG TAB take 1 at bedtime TRAZODONE HCL 100 MG TAB 359880 TRAZODONE HCL Inactive AMITRIPTYLINE HCL 100 MG TAB one at hs AMITRIPTYLINE HCL 100 MG TAB 042723 AMITRIPTYLINE HCL Inactive AMLODIPINE BESYLATE 5 MG TABS 1 tablet by mouth daily AMLODIPINE BESYLATE 5 MG TABS 139113 AMLODIPINE BESYLATE Inactive LATUDA 80 MG TABS Take one by mouth daily LATUDA 80 MG TABS LURASIDONE HCL Inactive SAPHRIS 5 MG SUBL 1 po bid SAPHRIS 5 MG SUBL ASENAPINE MALEATE Inactive PREDNISONE 20 MG TAB 2 tabs daily for 4 days, 1 tab daily for 4 days, 1/2 tab daily for 4 days PREDNISONE 20 MG TAB 963876 PREDNISONE Inactive AMBIEN 5 MG ORAL TABS 1 tab at bedtime AMBIEN 5 MG ORAL TABS 422609 ZOLPIDEM TARTRATE Inactive PROZAC 20 MG ORAL CAPS 1 tab daily PROZAC 20 MG ORAL CAPS 197033 FLUOXETINE HCL Inactive ABILIFY 15 MG ORAL TABS 1 tab daily ABILIFY 15 MG ORAL TABS 381257 ARIPIPRAZOLE Inactive METOPROLOL TARTRATE 50 MG TAB 1 po bid METOPROLOL TARTRATE 50 MG TAB 804401 METOPROLOL TARTRATE Inactive TRAMADOL HCL 50 MG TABS 1-2 po TID PRN Pain TRAMADOL HCL 50 MG TABS 930444 TRAMADOL HCL Inactive PIROXICAM 20 MG CAPS 1 cap po qd PRN Pain PIROXICAM 20 MG CAPS 702532 PIROXICAM Inactive MINIPRESS 2 MG CAPS 4 cap po at night MINIPRESS 2 MG CAPS 230168 PRAZOSIN HCL Inactive MIRALAX PACK 1 po qd PRN Constipation MIRALAX PACK 703692 POLYETHYLENE GLYCOL 3350 Inactive METOPROLOL TARTRATE 25 MG ORAL TABS 1/2 tablet twice daily for heart rate and blood pressure METOPROLOL TARTRATE 25 MG ORAL TABS 227228 METOPROLOL TARTRATE Inactive VALIUM 5 MG TAB Take 1-2 tablets daily VALIUM 5 MG TAB 006074 DIAZEPAM Inactive FLAGYL 500 MG TAB 1 tablet by mouth bid FLAGYL 500 MG TAB 384494 METRONIDAZOLE Inactive DICLOFENAC POTASSIUM TABS Take 1 tablet twice a day (pt. is not sure of the dose.) DICLOFENAC POTASSIUM TABS DICLOFENAC POTASSIUM TABS Inactive ZITHROMAX Z-EARNEST 250 MG TABS 2 today and then 1 daily for 4 days ZITHROMAX Z-EARNEST 250 MG TABS 5180767 AZITHROMYCIN Inactive PREDNISONE 20 MG TABS 2 daily for 5 days then 1 daily for 5 days PREDNISONE 20 MG TABS 908259 PREDNISONE Inactive PROAIR HFA 108 (90 BASE) MCG/ACT AERS 2 puffs four times a day as needed 2015 PROAIR HFA 108 (90 BASE) MCG/ACT AERS ALBUTEROL SULFATE Inactive HYDROCODONE-ACETAMINOPHEN 5-325 MG TABS 1 to 2 four times a day as needed for pain use until can be seen by specialist HYDROCODONE- ACETAMINOPHEN 5-325 MG TABS 286510 HYDROCODONE-ACETAMINOPHEN Inactive TESSALON PERLES 100 MG CAP 1 to 2 tablets by mouth 3 times daily as needed for cough TESSALON PERLES 100 MG CAP 585960 BENZONATATE Inactive CHANTIX STARTING MONTH EARNEST 0.5 [...] Pain 2015 DICLOFENAC SODIUM 50 MG TBEC 811106 DICLOFENAC SODIUM Inactive TOPAMAX 50 MG ORAL TABS 1 tab twice daily TOPAMAX 50 MG ORAL TABS 388981 TOPIRAMATE Inactive VIIBRYD 10 MG ORAL TABS Take 1 tablet once a day VIIBRYD 10 MG ORAL TABS VILAZODONE HCL Inactive LEVOFLOXACIN 500 MG ORAL TABS po daily LEVOFLOXACIN 500 MG ORAL TABS 469431 LEVOFLOXACIN Inactive METHYLPREDNISOLONE 4 MG ORAL TABS po daily METHYLPREDNISOLONE 4 MG ORAL TABS 461471 METHYLPREDNISOLONE Inactive OXYCODONE HCL ER 10 MG ORAL T12A 1/2 tab by mouth every 4 hours prn OXYCODONE HCL ER 10 MG ORAL T12A OXYCODONE HCL Inactive FLAGYL 500 MG TAB 1 tablet by mouth bid FLAGYL 500 MG TAB 412400 METRONIDAZOLE Inactive MONISTAT 7 COMBO PACK WOODROW 100 & 2 MG-% (9GM) VAG KIT 1 applicatorful per vagina q pm x 7 MONISTAT 7 COMBO PACK WOODROW 100 & 2 MG-% (9GM) VAG KIT MICONAZOLE NITRATE Inactive BACTRIM DS 800-160 MG TABS 1 twice a day BACTRIM DS 800-160 MG TABS 991079 SULFAMETHOXAZOLE-TRIMETHOPRIM Inactive TRAMADOL HCL 50 MG TABS 1/2-1 tab TID PRN TRAMADOL HCL 50 MG TABS 416858 TRAMADOL HCL Inactive ABILIFY MAINTENA 400 MG IM SUSR 400mg injection every 26 days ABILIFY MAINTENA 400 MG IM SUSR ARIPIPRAZOLE Inactive KLONOPIN 1 MG ORAL TABS 1 tab po TID KLONOPIN 1 MG ORAL TABS 471939 CLONAZEPAM Inactive ADVAIR DISKUS 250-50 MCG/DOSE INH AEPB 1 puff twice a day for asthma ADVAIR DISKUS 250-50 MCG/DOSE INH AEPB FLUTICASONE- SALMETEROL Inactive BENADRYL 25 MG CAP 4 po at bedtime for insomnia BENADRYL 25 MG CAP DIPHENHYDRAMINE HCL Inactive PREDNISONE 20 MG TABS 2 daily for 5 days then 1 daily for 5 days PREDNISONE 20 MG TABS 654282 PREDNISONE Inactive HYDROCODONE-ACETAMINOPHEN 5-325 MG ORAL TABS 1 tab two times a day HYDROCODONE-ACETAMINOPHEN 5-325 MG ORAL TABS 007698 HYDROCODONE-ACETAMINOPHEN Inactive ZITHROMAX Z-EARNEST 250 MG TABS 2 today and then 1 daily for 4 days ZITHROMAX Z-EARNEST 250 MG TABS 4872896 AZITHROMYCIN Inactive GUAIFENESIN-CODEINE 100-10 MG/5ML SYRP 5ml every 4 to 6 hours as needed for cough GUAIFENESIN-CODEINE 100-10 MG/5ML SYRP 868598 GUAIFENESIN-CODEINE Inactive HALOPERIDOL 10 MG ORAL TABS 1 tab q.d HALOPERIDOL 10 MG ORAL TABS 553525 HALOPERIDOL Inactive ASPIRIN 325 MG ORAL TABS 1 tab q.d ASPIRIN 325 MG ORAL TABS 045417 ASPIRIN Inactive FLUTICASONE PROPIONATE 50 MCG/ACT SUSP 2 sprays each nostril daily before bed. FLUTICASONE PROPIONATE 50 MCG/ACT SUSP 3388995 FLUTICASONE PROPIONATE Inactive ZOFRAN 4 MG TABS 1 po q6hr PRN Nausea ZOFRAN 4 MG TABS 412214 ONDANSETRON HCL Inactive CEFDINIR 300 MG CAPS by mouth twice a day CEFDINIR 300 MG CAPS 575717 CEFDINIR Inactive PREDNISONE 20 MG TAB 2 tabs daily for 3 days, 1 tab daily for 3 days, 1/2 tab daily for 2 days PREDNISONE 20 MG TAB 463055 PREDNISONE Inactive BACTRIM DS 800-160 MG TABS 1 po BID x 7 days BACTRIM DS 800-160 MG TABS 19820521 SULFAMETHOXAZOLE-TRIMETHOPRIM Inactive DIFLUCAN 150 MG TABS 1 pill every other day x 2 doses DIFLUCAN 150 MG TABS 348235 FLUCONAZOLE Inactive BACTRIM DS 800-160 MG TABS 1 pill by mouth twice daily BACTRIM DS 800-160 MG TABS 19820521 SULFAMETHOXAZOLE-TRIMETHOPRIM Inactive KEFLEX 500 MG CAP 1 po TID x 10 days KEFLEX 500 MG CAP 905005 CEPHALEXIN Inactive Advance Directives Directive Description Start [...] % 11.0-15.0 platelet count 443 THOUSAND/UL 10*3/mm3 035-591 3683/03/01 mean platelet volume 8.2 fL 7.5-12.5 Lab [...] 369 10^3/MM^3 10*3/mm3 142-424 Lab Report: Chlamydia/GC APTIMA/[id number] - Lab chlamydia DNA probe NOT DETECTED NOT DETECTED Lab Report: Chlamydia/GC APTIMA/[id number] - Microbiology Neisseria gonorrhoeae DNA probe NOT DETECTED NOT DETECTED Lab Report: Chlamydia/GC APTIMA/[id number], Urinalysis, Complete, with Reflex ... - Lab chlamydia DNA probe NOT DETECTED NOT DETECTED Lab Report: Chlamydia/GC APTIMA/[id number], Urinalysis, Complete, with Reflex ... - Microbiology Neisseria gonorrhoeae DNA probe NOT DETECTED NOT DETECTED Lab Report: Chlamydia/GC APTIMA/[id number], Urinalysis, Complete, with Reflex ... - Urinalysis microalbumin/total urine volume 2 mg/L Units converted. See lab report for original value. microalbumin/creatinine ratio, urine 9 MCG/MG CREAT mg/L <30 Lab Report: Comp. Metabolic Panel - Chemistry sodium, serum 142 mmol/L 403-930 1555/06/08 carbon dioxide, venous blood 27.6 mmol/L 21.0-32.0 potassium, serum 4.0 mmol/L 3.5-5.2 chloride, serum 105 mmol/L 98-107 blood glucose 95 mg/dL 65-110 urea nitrogen, blood 8 mg/dL 7-18 creatinine, serum 0.75 mg/dL 0.55-1.30 alanine aminotransferase (SGPT), serum 49 U/L 12-78 aspartate aminotransferase (SGOT), serum 28 U/L 15-37 calcium, serum 9.4 mg/dL 8.5-10.1 bilirubin, serum, total 0.30 mg/dL 0.00-1.00 sodium, serum 140 mmol/L 681-960 7632/08/08 carbon dioxide, venous blood 33.7 mmol/L 21.0-32.0 [...] mg/dL Encounters Code Encounter Date Provider Facility CPT-92309 Level 3 Est. Patient 11:15:58 DIGITAL PHOTOGRAPHER Renzo Thornton DO [facility] CPT-67686 Level 3 Est. Patient 15:28:23 DIGITAL PHOTOGRAPHER Suzan Boo [facility] CPT-24464 Level 4 Est. Patient 10:20:54 DIGITAL PHOTOGRAPHER Suzan Boo [facility] CPT-89603 Level 3 Est. Patient 11:47:37 DIGITAL PHOTOGRAPHER Ahmet Carbajal MD [facility] CPT-45725 Level 3 Est. Patient 10:40:11 DIGITAL PHOTOGRAPHER Ahmet Carbajal MD [facility] CPT-89971 Level 3 Est. Patient 15:07:06 DIGITAL PHOTOGRAPHER Neeraj Collins MD [facility] CPT-46280 Level 4 Est. Patient 14:45:00 DIGITAL PHOTOGRAPHER Ahmet Carbajal MD [facility] CPT-47864 Level 3 Est. Patient 13:59:59 CDT Luigi Martínez [facility] CPT-70373 Level 3 Est. Patient 18:18:53 CDT Neeraj Collins MD [facility] CPT-45386 Level 3 Est. Patient 15:50:44 CDT Vishal Hui MD [facility] CPT-87687 Level 3 Est. Patient 11:36:17 CDT Ahmet Carbajal MD [facility] CPT-42597 Level 3 Est. Patient 13:29:16 CDT Vishal Hui MD [facility] CPT-66444 Level 3 Est. Patient 14:27:52 CDT Neeraj Collins MD [facility] CPT-77056 Level 3 Est. Patient 08:56:03 CDT Luigi Martínez [facility] CPT-83954 Level 4 Est. Patient 12:11:48 CDT Fabiola Johnson [facility] CPT-19528 Level 3 New Patient 16:53:37 CDT Albert Caldera MD [facility] CPT-80406 Level 3 Est. Patient 11:25:49 CDT Renzo Thornton DO [facility] CPT-23688 Level 3 Est. Patient 15:22:01 CDT Ahmet Carbajal MD [facility] CPT-92471 Level 4 Est. Patient 09:00:51 DIGITAL PHOTOGRAPHER Vishal Hui MD [facility] CPT-82226 Level 3 Est. Patient 11:37:33 DIGITAL PHOTOGRAPHER Vishal Hui MD [facility] CPT-94095 Level 3 Est. Patient 08:41:09 DIGITAL PHOTOGRAPHER Vishal Hui MD [facility] CPT-57213 Level 4 Est. Patient 10:19:35 DIGITAL PHOTOGRAPHER Vishal Hui MD [facility] CPT-03800 Level 3 Est. Patient 13:35:45 CDT Vishal Hui MD [facility] CPT-96006 Level 4 Est. Patient 10:08:37 CDT Vishal Hui MD [facility] CPT-31028 Level 3 Est. Patient 11:22:10 CDT Vishal Hui MD [facility] CPT-68039 Level 3 Est. Patient 11:03:32 CDT Sahara Rodriguez MD [facility]-70072 Level 3 Est. Patient 09:41:35 CDT Vishal Hui MD [facility] CPT-74907 Level 3 Est. Patient 12:00:41 CDT Neeraj Collins MD [facility] CPT-19933 Level 3 Est. Patient 09:16:24 CDT Vishal Hui MD [facility] CPT-58741 Level 4 Est. Patient 13:59:09 CDT Neeraj Collins MD [facility] CPT-50973 Level 3 Est. Patient 15:19:43 CDT Renzo Thornton DO [facility] CPT-79343 Level 3 Est. Patient 18:10:26 CDT Sahara Rodriguez MD [facility] CPT-68519 Level 3 Est. Patient 14:49:50 CDT Vishal Hui MD [facility] CPT-38143 Level 4 Est. Patient 18:41:46 CDT Neeraj Collins MD [facility] CPT-32633 Level 4 Est. Patient 09:18:38 DIGITAL PHOTOGRAPHER Vishal Hui MD [facility] CPT-45647 Level 3 Est. Patient 14:43:55 DIGITAL PHOTOGRAPHER Vishal Hui MD [facility] CPT-18672 Level 3 Est. Patient 15:26:33 DIGITAL PHOTOGRAPHER Sahara Rodriguez MD PhD [facility] CPT-38264 Level 3 Est. Patient 10:32:14 DIGITAL PHOTOGRAPHER Vishal Hui MD [facility] CPT-63601 Level 3 Est. Patient 15:12:52 DIGITAL PHOTOGRAPHER Vishal Hui MD [facility] CPT-49502 Level 4 Est. Patient 09:19:27 CDT Vishal Hui MD [facility] CPT-92182 Level 3 Est. Patient 15:53:00 CDT Renzo Thornton [facility] CPT-00840 Level 3 Est. Patient 15:50:30 CDT Renzo Thornton [facility] CPT-23388 Level 3 Est. Patient 16:55:24 CDT Vishal Hui MD [facility] Procedures Code Procedure Name Date Entry Date Standard Description CPT-72189 Smoking Cessation counseling 11:15:58 DIGITAL PHOTOGRAPHER CPT-G0439 [facility] Annual Wellness Exam 09:30:58 DIGITAL PHOTOGRAPHER CPT-31044 TSH - LAB USE ONLY 08:50:26 DIGITAL PHOTOGRAPHER CPT-06640 CBC - LAB USE ONLY 08:50:26 DIGITAL PHOTOGRAPHER CPT-48943 Venipuncture Draw Fee 08:50:26 DIGITAL PHOTOGRAPHER CPT-04240 Abx/Therapy Injection 17:34:30 DIGITAL PHOTOGRAPHER CPT-48656 Nexplanon Removal with Reinsertion 14:09:32 CDT CPT-J7307 Nexplanon (Implant) 14:09:32 CDT CPT-OV Office Visit 14:09:32 CDT CPT-07858 UA w micro - LAB USE ONLY 16:21:13 CDT CPT-29699 Wet Mount - LAB USE ONLY 16:21:13 CDT CPT-30121 First Vx - Ix admin for Medicare patients 14:37:47 CDT CPT-29517 Fluzone Preservative Free Intramuscular Suspension 14:37 :47 CDT CPT-85781 Abx/Therapy Injection 13:54:22 CDT CPT-92319 Abx/Therapy Injection 08:47:09 CDT CPT-84926 Abx/Therapy Injection 13:29:56 CDT CPT-89345 Abx/Therapy Injection 08:36:16 CDT CPT-38922 Wet Mount - LAB USE ONLY 17:44:58 CDT CPT-37528 UA w micro - LAB USE ONLY 17:44:58 CDT CPT-50069 CMP - LAB USE ONLY 17:44:58 CDT CPT-98934 Venipuncture Draw Fee 17:44:58 CDT CPT-17024 Cervical Min 4V - XRAY USE ONLY 09:01:40 CDT CPT-00104 Chest 2V Frontal and Lat - XRAY USE ONLY 11:06:31 CDT CPT-08641 EKG Trac and Interp - XRAY USE ONLY 11:31:43 CDT 08/26 CPT-J3420 Vitamin B12 1000mcg (Cyanocobalamin) 08:10:26 DIGITAL PHOTOGRAPHER 04/12 CPT-96163 Abx/Therapy Injection 08:10:26 DIGITAL PHOTOGRAPHER CPT-G0438 Initial Annual Wellness Exam 19:01:01 DIGITAL PHOTOGRAPHER CPT-J3420 Vitamin B12 1000mcg (Cyanocobalamin) 16:57:46 CDT 08/14 CPT-21503 Recombivax HB Injection Suspension 5 MCG/0.5ML 08:37:50 DIGITAL PHOTOGRAPHER CPT-79587 Immunization Single Admin 08:37:50 DIGITAL PHOTOGRAPHER CPT-J3420 Vitamin B12 1000mcg (Cyanocobalamin) 08:32:16 DIGITAL PHOTOGRAPHER 03/11 CPT-33301 Abx/Therapy Injection 08:32:16 DIGITAL PHOTOGRAPHER CPT-49282 Chest 2V Frontal and Lat 11:46:38 DIGITAL PHOTOGRAPHER CPT-94346 Venipuncture Draw Fee 09:12:45 DIGITAL PHOTOGRAPHER CPT-J3420 Vitamin B12 1000mcg (Cyanocobalamin) 08:50:15 DIGITAL PHOTOGRAPHER 02/08 CPT-62436 Abx/Therapy Injection 08:50:15 DIGITAL PHOTOGRAPHER CPT-Cryo Cryotherapy 10:19:35 DIGITAL PHOTOGRAPHER CPT-000 Give Appropriate Flu Vaccine 09:22:16 CDT CPT-J3420 Vitamin B12 1000mcg (Cyanocobalamin) 19:08:57 CDT 01/11 CPT-79702 Abx/Therapy Injection 19:08:57 CDT CPT-J3420 Vitamin B12 1000mcg (Cyanocobalamin) 08:19:08 CDT 12/11 CPT-57316 Abx/Therapy Injection 08:19:08 CDT CPT-J3420 Vitamin B12 1000mcg (Cyanocobalamin) 14:48:00 CDT 11/09 CPT-49782 Abx/Therapy Injection 14:47:59 CDT CPT-J3420 Vitamin B12 1000mcg (Cyanocobalamin) 08:34:04 CDT 10/09 CPT-70327 Abx/Therapy Injection 08:34:04 CDT CPT-J3420 Vitamin B12 1000mcg (Cyanocobalamin) 09:18:52 CDT 09/11 CPT-33848 Abx/Therapy Injection 09:18:52 CDT CPT-J3420 Vitamin B12 1000mcg (Cyanocobalamin) 08:35:44 CDT 09/04 CPT-38353 Abx/Therapy Injection 08:35:44 CDT CPT-22173 Immunization Single Admin 11:07:16 CDT CPT-39157 Hepatitis B adult IM 11:07:16 CDT CPT-J3420 Vitamin B12 1000mcg (Cyanocobalamin) 11:00:49 CDT 08/28 CPT-J1040 Depo Medrol 80 mg (Methyl Prednisolone Acetate) 11:00: 49 CDT CPT-69322 Abx/Therapy Injection 11:00:49 CDT CPT-J1040 Depo Medrol 80 mg (Methyl Prednisolone Acetate) 09:16: 23 CDT CPT-J3420 Vitamin B12 1000mcg (Cyanocobalamin) 08:27:05 CDT 08/20 CPT-53883 Abx/Therapy Injection 08:27:05 CDT CPT-87716 Recombivax HB Injection Suspension 5 MCG/0.5ML 10:00:41 CDT CPT-09210 Administration single or combination vaccine inc oral 10 :00:41 CDT CPT-40111 Sono transvag pelvis non OB uterus ovaries cervix 16:36: 57 CDT CPT-51574 LS spine comp w obliq 09:50:55 DIGITAL PHOTOGRAPHER CPT-05363 Abd compl w upright 09:50:55 DIGITAL PHOTOGRAPHER CPT-J1100 Decadron 4mg (Dexamethasone) 15:51:24 DIGITAL PHOTOGRAPHER CPT-J1030 Depo Medrol 40 mg (Methyl Prednisolone Acetate) 15:51: 24 DIGITAL PHOTOGRAPHER CPT-48299 Abx/Therapy Injection 15:51:24 DIGITAL PHOTOGRAPHER CPT-J1100 Decadron 4mg (Dexamethasone) 15:26:33 DIGITAL PHOTOGRAPHER CPT-J1030 Depo Medrol 40 mg (Methyl Prednisolone Acetate) 15:26: 33 DIGITAL PHOTOGRAPHER CPT-10564 Sono retroperitoneal complete kidneys and bladder 17:15: 30 CDT CPT-97555 Abd compl w upright 16:09:25 CDT CPT-J1100 Decadron 8mg (Dexamethasone) 17:07:57 CDT CPT-76815 Abx/Therapy Injection 17:07:57 CDT CPT-J1100 Decadron 8mg (Dexamethasone) 16:55:24 CDT CPT-91900 Chest 2V Frontal and Lat 16:32:44 CDT
--- OUTSIDE RECORDS SUMMARY | 2016-11-04 23:36 | XMS REPORT | Clinical Summary ---
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 Suzan Boo [...] MD Health screening ICD-V70.0 Inactive Suzan Boo [employer] Sinus tachycardia ICD-427.89 Inactive Suzan Boo [employer] Smoker/tobacco use disorder-smoking cessation discussed ICD-305.1 Inactive [...] SOLN 30mL oral daily for IBS-C LACTULOSE 06103785608 Active Suzan Boo APRN Active TESSALON PERLES 100 MG CAPS 1 three times a day as needed for cough BENZONATATE 38209723477 No Longer Active Suzan Boo APRN Active BACTRIM DS 800-160 MG TABS 1 twice a day SULFAMETHOXAZOLE-TRIMETHOPRIM 92540343879 No Longer Active Suzan Boo APRN Active DIFLUCAN 150 MG TABS 1 by mouth for yeast FLUCONAZOLE 71150076823 No Longer Active Suzan Boo APRN Active EQ NICOTINE 21 MG/24HR TRANS PT24 Apply daily to stop smoking NICOTINE 33108422018 No Longer Active Suzan Boo APRN Active PREDNISONE 10 MG TABS 2 daily for 5 days then 1 daily for 5 days PREDNISONE 54058971263 No Longer Active Suzan Boo APRN Active LEVAQUIN 500 MG TABS 1 daily for infection LEVOFLOXACIN 90383173714 No Longer Active Suzan Boo APRN Active TROPICAMIDE 0.5 % OPHTH SOLN 1 drop PRN eye spasms TROPICAMIDE 57055313739 No Longer Active Suzan Boo APRN Active PREDNISONE 20 MG TAB 1 tablet daily x 4 days PREDNISONE 13716337250 No Longer Active Suzan Boo APRN Active ACETAMINOPHEN-CODEINE 120-12 MG/5ML SOLN 5 ml by mouth every 4-6 hours if needed for cough ACETAMINOPHEN-CODEINE 91763746547 No Longer Active Suzan Boo APRN Active KEFLEX 500 MG CAP 1 po qid CEPHALEXIN 70002881930 No Longer Active Suzan Boo APRN Active FLOVENT HFA 110 MCG/ACT AERO 2 puffs inhaled b.i.d. FLUTICASONE PROPIONATE HFA 94873249187 Active Renzo Thornton DO Active RISPERDAL 4 MG ORAL TABS 1 tab at bedtime RISPERIDONE 84229489454 Active Samantha Rothman RMA Active ZOFRAN 4 MG TABS 1 po q6hr PRN Nausea ONDANSETRON HCL No Longer Active Suzan Boo APRN Active FLUTICASONE PROPIONATE 50 MCG/ACT SUSP 2 sprays each nostril daily before bed. FLUTICASONE PROPIONATE 19265380388 No Longer Active Suzan Boo APRN Active ASPIRIN 325 MG ORAL TABS 1 tab q.d ASPIRIN 19424415878 No Longer Active Suzan Boo APRN Active HALOPERIDOL 10 MG ORAL TABS 1 tab q.d HALOPERIDOL 76224852136 No Longer Active Suzan Boo APRN Active GUAIFENESIN-CODEINE 100-10 MG/5ML SYRP 5ml every 4 to 6 hours as needed for cough GUAIFENESIN-CODEINE 52007888644 No Longer Active Suzan Boo APRN Active ZITHROMAX Z-EARNEST 250 MG TABS 2 today and then 1 daily for 4 days AZITHROMYCIN 73276561967 No Longer Active Suzan Boo APRN Active CLONAZEPAM 1 MG ORAL TABS 1 twice a day and an additional 1 tablet every other day as needed for pseudoseizures or anxiety CLONAZEPAM 48321179339 Active Ahmet Carbajal MD Active HYDROCODONE-ACETAMINOPHEN 5-325 MG ORAL TABS 1 tab two times a day HYDROCODONE-ACETAMINOPHEN 00199557929 No Longer Active Ahmet Carbajal MD Active LAMICTAL 100 MG ORAL TABS 1 tab 2 times qd. LAMOTRIGINE 63695346539 Active Ahmet Carbajal MD Active PREDNISONE 20 MG TABS 2 daily for 5 days then 1 daily for 5 days PREDNISONE 18041152194 No Longer Active Ahmet Carbajal MD Active FLUTICASONE PROPIONATE 50 MCG/ACT SUSP 1 to 2 sprays each nostril daily for allergies FLUTICASONE PROPIONATE 93545581491 Active Tila Valenzuela Active BENADRYL 25 MG CAP 4 po at bedtime for insomnia DIPHENHYDRAMINE HCL 00205901294 No Longer Active Ahmet Carbajal MD Active ADVAIR DISKUS 250-50 MCG/DOSE INH AEPB 1 puff twice a day for asthma FLUTICASONE-SALMETEROL 53855537287 No Longer Active Ahmet Carbajal MD Active KLONOPIN 1 MG ORAL TABS 1 tab po TID CLONAZEPAM 07847598245 No Longer Active Ahmet Carbajal MD Active ABILIFY MAINTENA 400 MG IM SUSR 400mg injection every 26 days ARIPIPRAZOLE 14704673600 No Longer Active Ahmet Carbajal MD Active TRAMADOL HCL 50 MG TABS 1/2-1 tab TID PRN TRAMADOL HCL 27054191813 No Longer Active Ahmet Carbajal MD Active BACTRIM DS 800-160 MG TABS 1 twice a day SULFAMETHOXAZOLE- TRIMETHOPRIM 48211604461 No Longer Active Ahmet Carbajal MD Active PROAIR HFA 108 (90 BASE) MCG/ACT AERS 2 puffs four times a day as needed 2015 ALBUTEROL SULFATE 67440405102 Active Ahmet Carbajal MD Active MONISTAT 7 COMBO PACK WOODROW 100 & 2 MG-% (9GM) VAG KIT 1 applicatorful per vagina q pm x 7 MICONAZOLE NITRATE 93330527361 No Longer Active Ahmet Carbajal MD Active FLAGYL 500 MG TAB 1 tablet by mouth bid METRONIDAZOLE 90503562262 No Longer Active Ahmet Carbajal MD Active OXYCODONE HCL ER 10 MG ORAL T12A 1/2 tab by mouth every 4 hours prn OXYCODONE HCL 76905369422 No Longer Active Ahmet Carbajal MD Active METHYLPREDNISOLONE 4 MG ORAL TABS po daily METHYLPREDNISOLONE 58572199117 No Longer Active Ahmet Carbajal MD Active LEVOFLOXACIN 500 MG ORAL TABS po daily LEVOFLOXACIN 52702876511 No Longer Active Ahmet Carbajal MD Active VIIBRYD 10 MG ORAL TABS Take 1 tablet once a day VILAZODONE HCL 44288242275 No Longer Active Ahmet Carbajal MD Active TOPAMAX 50 MG ORAL TABS 1 tab twice daily TOPIRAMATE 82917818145 No Longer Active Ahmet Carbajal MD Active DICLOFENAC SODIUM 50 MG TBEC 1 tablet by mouth four times daily PRN Pain 2015 DICLOFENAC SODIUM 66816423008 No Longer Active Ahmet Carbajal MD Active ADZENYS XR-ODT 6.3 MG ORAL TBED 1 tab po daily for ADHD AMPHETAMINE 95278070527 No Longer Active Ahmet Carbajal MD Active CHANTIX 1 MG TABS 1 twice a day to help quit smoking VARENICLINE TARTRATE 28119254664 No Longer Active Dipika Burgos MD Active CHANTIX STARTING MONTH EARNEST 0.5 MG X 11 & 1 MG X 42 TABS take as directed 2015 VARENICLINE TARTRATE 39740343085 No Longer Active Dipika Burgos MD Active TESSALON PERLES 100 MG CAP 1 to 2 tablets by mouth 3 times daily as needed for cough BENZONATATE 55983201037 No Longer Active Luigi Martínez APRN Active IMITREX 50 MG ORAL TABS 0.5 po x 1 PRN Headache. May repeat dose x 1 in 2 hours if needed SUMATRIPTAN SUCCINATE 68977828487 Active Ahmet Carbajal MD Active HYDROCODONE-ACETAMINOPHEN 5-325 MG TABS 1 to 2 four times a day as needed for pain use until can be seen by specialist HYDROCODONE- ACETAMINOPHEN 93536963670 No Longer Active Vishal Hui MD Active PROAIR HFA 108 (90 BASE) MCG/ACT AERS 2 puffs four times a day as needed 2015 ALBUTEROL SULFATE 73155007353 No Longer Active Vishal Hui MD Active PREDNISONE 20 MG TABS 2 daily for 5 days then 1 daily for 5 days PREDNISONE 19708801039 No Longer Active Vishal Hui MD Active ZITHROMAX Z-EARNEST 250 MG TABS 2 today and then 1 daily for 4 days AZITHROMYCIN 36307250917 No Longer Active Vishal Hui MD Active DICLOFENAC POTASSIUM TABS Take 1 tablet twice a day (pt. is not sure of the dose.) DICLOFENAC POTASSIUM TABS 52511083637 No Longer Active Vishal Hui MD Active VERAPAMIL HCL ER 120 MG ORAL CR-TABS Take 1 tablet by mouth twice a day. VERAPAMIL HCL 25506339480 Active Vishal Hui MD Active FLAGYL 500 MG TAB 1 tablet by mouth bid METRONIDAZOLE 54526233246 No Longer Active Vishal Hui MD Active VALIUM 5 MG TAB Take 1-2 tablets daily DIAZEPAM 30280798111 No Longer Active Fabiola Johnson APRN Active METOPROLOL TARTRATE 25 MG ORAL TABS 1/2 tablet twice daily for heart rate and blood pressure METOPROLOL TARTRATE 47533765359 No Longer Active Fabiola Johnson APRN Active MIRALAX ORAL POWD 17GMS DAILY IN WATER POLYETHYLENE GLYCOL 3350 90509425296 Active TAMARA Casey Active MIRALAX PACK 1 po qd PRN Constipation POLYETHYLENE GLYCOL 3350 52447817290 No Longer Active Ahmet Carbajal MD Active MINIPRESS 2 MG CAPS 4 cap po at night PRAZOSIN HCL 40548029407 No Longer Active Ahmet Carbajal MD Active PIROXICAM 20 MG CAPS 1 cap po qd PRN Pain PIROXICAM 22973961140 No Longer Active Ahmet Carbajal MD Active TRAMADOL HCL 50 MG TABS 1-2 po TID PRN Pain TRAMADOL HCL 15446216428 No Longer Active Ahmet Carbajal MD Active METOPROLOL TARTRATE 50 MG TAB 1 po bid METOPROLOL TARTRATE 29008522588 No Longer Active Ahmet Carbajal MD Active ABILIFY 15 MG ORAL TABS 1 tab daily ARIPIPRAZOLE 00258052475 No Longer Active Ahmet Carbajal MD Active PROZAC 20 MG ORAL CAPS 1 tab daily FLUOXETINE HCL 38272333326 No Longer Active Ahmet Carbajal MD Active AMBIEN 5 MG ORAL TABS 1 tab at bedtime ZOLPIDEM TARTRATE 56891410890 No Longer Active Ahmet Carbajal MD Active PREDNISONE 20 MG TAB 2 tabs daily for 4 days, 1 tab daily for 4 days, 1/2 tab daily for 4 days PREDNISONE 51538321066 No Longer Active Ahmet Carbajal MD Active KEFLEX 500 MG CAP 1 po TID x 10 days CEPHALEXIN 11822913967 No Longer Active Vishal Hui MD Active SAPHRIS 5 MG SUBL 1 po bid ASENAPINE MALEATE 50012637574 No Longer Active Jillina Fralebron [employer] Active LATUDA 80 MG TABS Take one by mouth daily LURASIDONE HCL 41434042608 No Longer Active Jillina Frazell [employer] Active AMLODIPINE BESYLATE 5 MG TABS 1 tablet by mouth daily AMLODIPINE BESYLATE 66853631424 No Longer Active Jillina Mauricio [employer] Active AMITRIPTYLINE HCL 100 MG TAB one at hs AMITRIPTYLINE HCL 85117756283 No Longer Active Vishal Hui MD Active TRAZODONE HCL 100 MG TAB take 1 at bedtime TRAZODONE HCL 46778857972 No Longer Active Vishal Hui MD Active VYVANSE 40 MG CAPS 1 daily, LISDEXAMFETAMINE DIMESYLATE 32862399568 No Longer Active Vishal Hui MD Active IBUPROFEN 600 MG TAB 1 po TID PRN IBUPROFEN 49325645633 No Longer Active Vishal Hui MD Active PROZAC 20 MG CAP Take one by mouth daily FLUOXETINE HCL 59721005601 No Longer Active Vishal Hui MD Active BACTRIM DS 800-160 MG TABS 1 pill by mouth twice daily SULFAMETHOXAZOLE-TRIMETHOPRIM 38161551331 No Longer Active Sahara Rodriguez MD PhD Active DIFLUCAN 150 MG TAB 1 tablet by mouth daily FLUCONAZOLE 30003900535 No Longer Active Vishal Hui MD Active TIZANIDINE HCL 4 MG TABS 1 po q6hr PRN Muscle Spasm/Back Pain TIZANIDINE HCL 88419612159 Active Vishal Hui MD Active CLINDAMYCIN HCL 150 MG CAPS 1 four times a day CLINDAMYCIN HCL 39156813904 No Longer Active Neeraj Collins MD Active KEFLEX 500 MG ORAL CAPS 1 cap QID by mouth CEPHALEXIN 36777555578 No Longer Active Neeraj Collins MD Active DIFLUCAN 150 MG TABS 1 pill every other day x 2 doses FLUCONAZOLE 47114406873 No Longer Active Sahara Rodriguez MD PhD Active MELATONIN 3 MG CAPS 2 po q hs MELATONIN 59791165490 No Longer Active Sahara Rodriguez MD PhD Active MULTIVITAMINS CAPS Take one by mouth daily MULTIPLE VITAMIN 22059032657 No Longer Active Sahara Rodriguez MD PhD Active BACTRIM DS 800-160 MG TAB 1 tab by mouth twice daily TRIMETHOPRIM-SULFAMETHOXAZOLE 36868317192 No Longer Active Sahara Rodriguez MD PhD Active [facility] PROBIOTIC ORAL CHEW 2 daily po PROBIOTIC PRODUCT 85848507621 No Longer Active Sahara Rodriguez MD PhD Active BACTRIM DS 800-160 MG TABS 1 po BID x 7 days SULFAMETHOXAZOLE-TRIMETHOPRIM 57863591759 No Longer Active Vishal Hui MD Active CHANTIX STARTING MONTH EARNEST 0.5 MG X 11 & 1 MG X 42 TABS 0.5mg daily for 3 days , then 0.5mg BID for 4 days, then 1mg BID VARENICLINE TARTRATE 19744211537 No Longer Active TAMARA Gray Active VERAPAMIL HCL CR 120 MG TAB CR 1 po bid VERAPAMIL HCL 06505835485 No Longer Active Vishal Hui MD Active METOPROLOL SUCCINATE 50 MG TB24 1 tablet by mouth daily METOPROLOL SUCCINATE 53180191519 No Longer Active Vishal Hui MD Active SAPHRIS 10 MG SUBL 1 tab po bid ASENAPINE MALEATE 07156822234 No Longer Active Vishal Hui MD Active LISINOPRIL 20 MG TABS 1 tab po qd LISINOPRIL 17328412631 No Longer Active Vishal Hui MD Active LATUDA 20 MG TABS Take one by mouth daily LURASIDONE HCL 50318189220 No Longer Active Vishal Hui MD Active TRAZODONE HCL 50 MG TABS 1/2 tab po qd prn for anxiety TRAZODONE HCL 23530131618 No Longer Active Vishal Hui MD Active OMEPRAZOLE 20 MG TBEC 1 po q a.m. 30min prior to first food intake OMEPRAZOLE 43186925162 Active TAMARA Casey Active RANITIDINE HCL 150 MG CAPS 1 twice a day RANITIDINE HCL 84077710702 Active Jillina Frazell [employer] Active LINZESS 290 MCG CAPS Take one by mouth daily LINACLOTIDE 54829536057 No Longer Active Vishal Hui MD Active SAPHRIS 5 MG SUBL 1 tab po qd ASENAPINE MALEATE 21671557762 No Longer Active Vishal Hui MD Active ZALEPLON 10 MG CAPS 1 cap po every other night ZALEPLON 23955545684 No Longer Active Vishal Hui MD Active LYRICA 50 MG CAPS 1 tab po TID PREGABALIN 94746766803 No Longer Active Vishal Hui MD Active LORATADINE 10 MG TABS 1 tab po qd LORATADINE 15771292990 No Longer Active Vishal Hui MD Active VERAPAMIL HCL ER 180 MG CR-TABS 1 tab po bid VERAPAMIL HCL 64401808234 No Longer Active Vishal Hui MD Active MIRALAX POWD 1 capfull once daily POLYETHYLENE GLYCOL 3350 67517527273 No Longer Active Vishal Hui MD Active PREDNISONE 20 MG TABS 1 tab po qd PREDNISONE 67416251683 No Longer Active Renzo Thornton DO Active LEVOFLOXACIN 500 MG TABS 1 tab po qd LEVOFLOXACIN 08617818704 No Longer Active Renzo Thornton DO Active BUSPIRONE HCL 15 MG TABS 1 tab po TID BUSPIRONE HCL 91603651254 No Longer Active Renzo Thornton DO Active BENZTROPINE MESYLATE 1 MG TABS 1 tab po qd BENZTROPINE MESYLATE 83731683763 No Longer Active Renzo Thornton DO Active ATENOLOL 25 MG TABS 1 tab po qd ATENOLOL 21496400000 No Longer Active Renzo Thornton DO Active ESCITALOPRAM OXALATE 20 MG TABS 1 tab po qd ESCITALOPRAM OXALATE 97568607218 No Longer Active Renzo Thornton DO Active ADVAIR DISKUS 250-50 MCG/DOSE AEPB 1 puff BID FLUTICASONE-SALMETEROL 95678360603 No Longer Active Renzo Thornton DO Active PREDNISONE 20 MG TAB 2 tabs daily for 3 days, 1 tab daily for 3 days, 1/2 tab daily for 2 days PREDNISONE 25952647587 No Longer Active Vishal Hui MD Active CEFDINIR 300 MG CAPS by mouth twice a day CEFDINIR 51444167152 No Longer Active Vishal Hui MD Active LANSOPRAZOLE 30 MG CPDR 1 cap po qd LANSOPRAZOLE 26825302330 No Longer Active Vishal Hui MD Active BACLOFEN 20 MG TABS 1 tab po tid BACLOFEN 14715175907 No Longer Active Vishal Hui MD Active ADVAIR DISKUS 250-50 MCG/DOSE AEPB 1 puff BID ADVAIR DISKUS 250-50 MCG/DOSE AEPB FLUTICASONE-SALMETEROL Inactive ESCITALOPRAM OXALATE 20 MG TABS 1 tab po qd ESCITALOPRAM OXALATE 20 MG TABS 385890 ESCITALOPRAM OXALATE Inactive ATENOLOL 25 MG TABS 1 tab po qd ATENOLOL 25 MG TABS 727795 ATENOLOL Inactive BENZTROPINE MESYLATE 1 MG TABS 1 tab po qd BENZTROPINE MESYLATE 1 MG TABS 429629 BENZTROPINE MESYLATE Inactive BUSPIRONE HCL 15 MG TABS 1 tab po TID BUSPIRONE HCL 15 MG TABS 642656 BUSPIRONE HCL Inactive LEVOFLOXACIN 500 MG TABS 1 tab po qd LEVOFLOXACIN 500 MG TABS 175246 LEVOFLOXACIN Inactive PREDNISONE 20 MG TABS 1 tab po qd PREDNISONE 20 MG TABS 358615 PREDNISONE Inactive MIRALAX POWD 1 capfull once daily MIRALAX POWD 035492 POLYETHYLENE GLYCOL 3350 Inactive VERAPAMIL HCL ER 180 MG CR-TABS 1 tab po bid VERAPAMIL HCL ER 180 MG CR-TABS VERAPAMIL HCL Inactive LORATADINE 10 MG TABS 1 tab po qd LORATADINE 10 MG TABS 379781 LORATADINE Inactive LYRICA 50 MG CAPS 1 tab po TID LYRICA 50 MG CAPS PREGABALIN Inactive ZALEPLON 10 MG CAPS 1 cap po every other night ZALEPLON 10 MG CAPS 699886 ZALEPLON Inactive SAPHRIS 5 MG SUBL 1 tab po qd SAPHRIS 5 MG SUBL ASENAPINE MALEATE Inactive TRAZODONE HCL 50 MG TABS 1/2 tab po qd prn for anxiety TRAZODONE HCL 50 MG TABS 957242 TRAZODONE HCL Inactive LATUDA 20 MG TABS Take one by mouth daily LATUDA 20 MG TABS LURASIDONE HCL Inactive LISINOPRIL 20 MG TABS 1 tab po qd LISINOPRIL 20 MG TABS 601473 LISINOPRIL Inactive SAPHRIS 10 MG SUBL 1 [...] twice daily BACTRIM DS 800-160 MG TAB 565793 TRIMETHOPRIM-SULFAMETHOXAZOLE Inactive MULTIVITAMINS CAPS Take one by mouth daily MULTIVITAMINS CAPS MULTIPLE VITAMIN Inactive MELATONIN 3 MG CAPS 2 po q hs MELATONIN 3 MG CAPS 187269 MELATONIN Inactive KEFLEX 500 MG ORAL CAPS 1 cap QID by mouth KEFLEX 500 MG ORAL CAPS 862352 CEPHALEXIN Inactive CLINDAMYCIN HCL 150 MG CAPS 1 four times a day CLINDAMYCIN HCL 150 MG CAPS 432108 CLINDAMYCIN HCL Inactive DIFLUCAN 150 MG TAB 1 tablet by mouth daily DIFLUCAN 150 MG TAB 869561 FLUCONAZOLE Inactive PROZAC 20 MG CAP Take one by mouth daily PROZAC 20 MG CAP 172904 FLUOXETINE HCL Inactive IBUPROFEN 600 MG TAB 1 po TID PRN IBUPROFEN 600 MG TAB 155708 IBUPROFEN Inactive VYVANSE 40 MG CAPS 1 daily, VYVANSE 40 MG CAPS LISDEXAMFETAMINE DIMESYLATE Inactive TRAZODONE HCL 100 MG TAB take 1 at bedtime TRAZODONE HCL 100 MG TAB 727026 TRAZODONE HCL Inactive AMITRIPTYLINE HCL 100 MG TAB one at hs AMITRIPTYLINE HCL 100 MG TAB 231827 AMITRIPTYLINE HCL Inactive AMLODIPINE BESYLATE 5 MG TABS 1 tablet by mouth daily AMLODIPINE BESYLATE 5 MG TABS 489848 AMLODIPINE BESYLATE Inactive LATUDA 80 MG TABS Take one by mouth daily LATUDA 80 MG TABS LURASIDONE HCL Inactive SAPHRIS 5 MG SUBL 1 po bid SAPHRIS 5 MG SUBL ASENAPINE MALEATE Inactive PREDNISONE 20 MG TAB 2 tabs daily for 4 days, 1 tab daily for 4 days, 1/2 tab daily for 4 days PREDNISONE 20 MG TAB 932417 PREDNISONE Inactive AMBIEN 5 MG ORAL TABS 1 tab at bedtime AMBIEN 5 MG ORAL TABS 077906 ZOLPIDEM TARTRATE Inactive PROZAC 20 MG ORAL CAPS 1 tab daily PROZAC 20 MG ORAL CAPS 750231 FLUOXETINE HCL Inactive ABILIFY 15 MG ORAL TABS 1 tab daily ABILIFY 15 MG ORAL TABS 990939 ARIPIPRAZOLE Inactive METOPROLOL TARTRATE 50 MG TAB 1 po bid METOPROLOL TARTRATE 50 MG TAB 080969 METOPROLOL TARTRATE Inactive TRAMADOL HCL 50 MG TABS 1-2 po TID PRN Pain TRAMADOL HCL 50 MG TABS 495447 TRAMADOL HCL Inactive PIROXICAM 20 MG CAPS 1 cap po qd PRN Pain PIROXICAM 20 MG CAPS 075846 PIROXICAM Inactive MINIPRESS 2 MG CAPS 4 cap po at night MINIPRESS 2 MG CAPS 155862 PRAZOSIN HCL Inactive MIRALAX PACK 1 po qd PRN Constipation MIRALAX PACK 561105 POLYETHYLENE GLYCOL 3350 Inactive METOPROLOL TARTRATE 25 MG ORAL TABS 1/2 tablet twice daily for heart rate and blood pressure METOPROLOL TARTRATE 25 MG ORAL TABS 971286 METOPROLOL TARTRATE Inactive VALIUM 5 MG TAB Take 1-2 tablets daily VALIUM 5 MG TAB 861140 DIAZEPAM Inactive FLAGYL 500 MG TAB 1 tablet by mouth bid FLAGYL 500 MG TAB 106103 METRONIDAZOLE Inactive DICLOFENAC POTASSIUM TABS Take 1 tablet twice a day (pt. is not sure of the dose.) DICLOFENAC POTASSIUM TABS DICLOFENAC POTASSIUM TABS Inactive ZITHROMAX Z-EARNEST 250 MG TABS 2 today and then 1 daily for 4 days ZITHROMAX Z-EARNEST 250 MG TABS 0257289 AZITHROMYCIN Inactive PREDNISONE 20 MG TABS 2 daily for 5 days then 1 daily for 5 days PREDNISONE 20 MG TABS 030458 PREDNISONE Inactive PROAIR HFA 108 (90 BASE) MCG/ACT AERS 2 puffs four times a day as needed 2015 PROAIR HFA 108 (90 BASE) MCG/ACT AERS ALBUTEROL SULFATE Inactive HYDROCODONE-ACETAMINOPHEN 5-325 MG TABS 1 to 2 four times a day as needed for pain use until can be seen by specialist HYDROCODONE- ACETAMINOPHEN 5-325 MG TABS 654270 HYDROCODONE-ACETAMINOPHEN Inactive TESSALON PERLES 100 MG CAP 1 to 2 tablets by mouth 3 times daily as needed for cough TESSALON PERLES 100 MG CAP 783837 BENZONATATE Inactive CHANTIX STARTING MONTH EARNEST 0.5 [...] Pain 2015 DICLOFENAC SODIUM 50 MG TBEC 338915 DICLOFENAC SODIUM Inactive TOPAMAX 50 MG ORAL TABS 1 tab twice daily TOPAMAX 50 MG ORAL TABS 321093 TOPIRAMATE Inactive VIIBRYD 10 MG ORAL TABS Take 1 tablet once a day VIIBRYD 10 MG ORAL TABS VILAZODONE HCL Inactive LEVOFLOXACIN 500 MG ORAL TABS po daily LEVOFLOXACIN 500 MG ORAL TABS 282490 LEVOFLOXACIN Inactive METHYLPREDNISOLONE 4 MG ORAL TABS po daily METHYLPREDNISOLONE 4 MG ORAL TABS 040942 METHYLPREDNISOLONE Inactive OXYCODONE HCL ER 10 MG ORAL T12A 1/2 tab by mouth every 4 hours prn OXYCODONE HCL ER 10 MG ORAL T12A OXYCODONE HCL Inactive FLAGYL 500 MG TAB 1 tablet by mouth bid FLAGYL 500 MG TAB 255925 METRONIDAZOLE Inactive MONISTAT 7 COMBO PACK WOODROW 100 & 2 MG-% (9GM) VAG KIT 1 applicatorful per vagina q pm x 7 MONISTAT 7 COMBO PACK WOODROW 100 & 2 MG-% (9GM) VAG KIT MICONAZOLE NITRATE Inactive BACTRIM DS 800-160 MG TABS 1 twice a day BACTRIM DS 800-160 MG TABS 779487 SULFAMETHOXAZOLE-TRIMETHOPRIM Inactive TRAMADOL HCL 50 MG TABS 1/2-1 tab TID PRN TRAMADOL HCL 50 MG TABS 512184 TRAMADOL HCL Inactive ABILIFY MAINTENA 400 MG IM SUSR 400mg injection every 26 days ABILIFY MAINTENA 400 MG IM SUSR ARIPIPRAZOLE Inactive KLONOPIN 1 MG ORAL TABS 1 tab po TID KLONOPIN 1 MG ORAL TABS 751980 CLONAZEPAM Inactive ADVAIR DISKUS 250-50 MCG/DOSE INH AEPB 1 puff twice a day for asthma ADVAIR DISKUS 250-50 MCG/DOSE INH AEPB FLUTICASONE- SALMETEROL Inactive BENADRYL 25 MG CAP 4 po at bedtime for insomnia BENADRYL 25 MG CAP DIPHENHYDRAMINE HCL Inactive PREDNISONE 20 MG TABS 2 daily for 5 days then 1 daily for 5 days PREDNISONE 20 MG TABS 875656 PREDNISONE Inactive HYDROCODONE-ACETAMINOPHEN 5-325 MG ORAL TABS 1 tab two times a day HYDROCODONE-ACETAMINOPHEN 5-325 MG ORAL TABS 230425 HYDROCODONE-ACETAMINOPHEN Inactive ZITHROMAX Z-EARNEST 250 MG TABS 2 today and then 1 daily for 4 days ZITHROMAX Z-EARNEST 250 MG TABS 5405946 AZITHROMYCIN Inactive GUAIFENESIN-CODEINE 100-10 MG/5ML SYRP 5ml every 4 to 6 hours as needed for cough GUAIFENESIN-CODEINE 100-10 MG/5ML SYRP 080885 GUAIFENESIN-CODEINE Inactive HALOPERIDOL 10 MG ORAL TABS 1 tab q.d HALOPERIDOL 10 MG ORAL TABS 843120 HALOPERIDOL Inactive ASPIRIN 325 MG ORAL TABS 1 tab q.d ASPIRIN 325 MG ORAL TABS 734631 ASPIRIN Inactive FLUTICASONE PROPIONATE 50 MCG/ACT SUSP 2 sprays each nostril daily before bed. FLUTICASONE PROPIONATE 50 MCG/ACT SUSP 0262084 FLUTICASONE PROPIONATE Inactive ZOFRAN 4 MG TABS 1 po q6hr PRN Nausea ZOFRAN 4 MG TABS 978638 ONDANSETRON HCL Inactive KEFLEX 500 MG CAP 1 po qid KEFLEX 500 MG CAP 847316 CEPHALEXIN Inactive ACETAMINOPHEN-CODEINE 120-12 MG/5ML SOLN 5 ml by mouth every 4-6 hours if needed for cough ACETAMINOPHEN-CODEINE 120-12 MG/5ML SOLN 927530 ACETAMINOPHEN-CODEINE Inactive PREDNISONE 20 MG TAB 1 tablet daily x 4 days PREDNISONE 20 MG TAB 211024 PREDNISONE Inactive TROPICAMIDE 0.5 % OPHTH SOLN 1 drop PRN eye spasms TROPICAMIDE 0.5 % [facility] 406098 TROPICAMIDE Inactive LEVAQUIN 500 MG TABS 1 daily for infection LEVAQUIN 500 MG TABS 095107 LEVOFLOXACIN Inactive PREDNISONE 10 MG TABS 2 daily for 5 days then 1 daily for 5 days PREDNISONE 10 MG TABS 226087 PREDNISONE Inactive EQ NICOTINE 21 MG/24HR TRANS [...] for cough TESSALON PERLES 100 MG CAPS 998625 BENZONATATE Inactive CEFDINIR 300 MG CAPS by mouth twice a day CEFDINIR 300 MG CAPS 349794 CEFDINIR Inactive PREDNISONE 20 MG TAB 2 tabs daily for 3 days, 1 tab daily for 3 days, 1/2 tab daily for 2 days PREDNISONE 20 MG TAB 904188 PREDNISONE Inactive BACTRIM DS 800-160 MG TABS 1 po BID x 7 days BACTRIM DS 800-160 MG TABS 672546 SULFAMETHOXAZOLE-TRIMETHOPRIM Inactive DIFLUCAN 150 MG TABS 1 pill every other day x 2 doses DIFLUCAN 150 MG TABS 19751126 FLUCONAZOLE Inactive BACTRIM DS 800-160 MG TABS 1 pill by mouth twice daily BACTRIM DS 800-160 MG TABS 519841 SULFAMETHOXAZOLE-TRIMETHOPRIM Inactive KEFLEX 500 MG CAP 1 po TID x 10 days KEFLEX 500 MG CAP 272793 CEPHALEXIN Inactive Advance Directives Directive Description Start [...] % 11.0-15.0 platelet count 443 THOUSAND/UL 10*3/mm3 704-647 6951/03/01 mean platelet volume 8.2 fL 7.5-12.5 leukocyte [...] % 11.0-15.0 platelet count 349 THOUSAND/UL 10*3/mm3 315-016 7042/04/12 mean platelet volume 8.4 fL 7.5-12.5 Lab [...] 369 10^3/MM^3 10*3/mm3 142-424 Lab Report: Chlamydia/GC [id number]/[id number] - Lab chlamydia DNA probe NOT DETECTED NOT DETECTED Lab Report: Chlamydia/GC APTIMA/[id number] - Microbiology Neisseria gonorrhoeae DNA probe NOT DETECTED NOT DETECTED Lab Report: Chlamydia/GC APTIMA/[id number], Urinalysis, Complete, with Reflex ... - Lab chlamydia DNA probe NOT DETECTED NOT DETECTED Lab Report: Chlamydia/GC APTIMA/[id number], Urinalysis, Complete, with Reflex ... - Microbiology Neisseria gonorrhoeae DNA probe NOT DETECTED NOT DETECTED Lab Report: Chlamydia/GC APTIMA/[id number], Urinalysis, Complete, with Reflex ... - Urinalysis microalbumin/total urine volume 2 mg/L Units converted. See lab report for original value. microalbumin/creatinine ratio, urine 9 MCG/MG CREAT mg/L <30 Lab Report: Comp. Metabolic Panel - Chemistry sodium, serum 142 mmol/L [phone]/06/08 carbon dioxide, venous blood 27.6 mmol/L 21.0-32.0 potassium, serum 4.0 mmol/L 3.5-5.2 chloride, serum 105 mmol/L 98-107 blood glucose 95 mg/dL 65-110 urea nitrogen, blood 8 mg/dL 7-18 creatinine, serum 0.75 mg/dL 0.55-1.30 alanine aminotransferase (SGPT), serum 49 U/L 12-78 aspartate aminotransferase (SGOT), serum 28 U/L 15-37 calcium, serum 9.4 mg/dL 8.5-10.1 bilirubin, serum, total 0.30 mg/dL 0.00-1.00 sodium, serum 140 mmol/L 846-339 5299/08/08 carbon dioxide, venous blood 33.7 mmol/L 21.0-32.0 [...] mg/dL Encounters Code Encounter Date Provider Facility CPT-69395 Level 3 Est. Patient 10:00:25 CDT Suzan Boo [facility] CPT-79576 Level 3 Est. Patient 10:29:30 CDT Suzan Boo [facility] CPT-49506 Level 3 Est. Patient 11:04:38 CDT Renzo Thornton [facility] CPT-93448 Level 3 Est. Patient 11:15:58 ELECTRONIC LAB TECHNICIAN Renzo Thornton [facility] CPT-62976 Level 3 Est. Patient 15:28:23 ELECTRONIC LAB TECHNICIAN Suzan Boo [facility] CPT-82915 Level 4 Est. Patient 10:20:54 ELECTRONIC LAB TECHNICIAN uSzan Boo [facility] CPT-72078 Level 3 Est. Patient 11:47:37 ELECTRONIC LAB TECHNICIAN Ahmet Carbajal MD [facility] CPT-26502 Level 3 Est. Patient 10:40:11 ELECTRONIC LAB TECHNICIAN Ahmet Carbajal MD [facility] CPT-92256 Level 3 Est. Patient 15:07:06 ELECTRONIC LAB TECHNICIAN Neeraj Collins MD [facility] CPT-42269 Level 4 Est. Patient 14:45:00 ELECTRONIC LAB TECHNICIAN Ahmet Carbajal MD [facility] CPT-78395 Level 3 Est. Patient 13:59:59 CDT Luigi Martínez [facility] CPT-58933 Level 3 Est. Patient 18:18:53 CDT Neeraj Collins MD [facility] CPT-35228 Level 3 Est. Patient 15:50:44 CDT Vishal Hui MD [facility] CPT-87246 Level 3 Est. Patient 11:36:17 CDT Ahmet Carbajal MD [facility] CPT-81274 Level 3 Est. Patient 13:29:16 CDT Vishal Hui MD [facility] CPT-13643 Level 3 Est. Patient 14:27:52 CDT Neeraj Collins MD [facility] CPT-27464 Level 3 Est. Patient 08:56:03 CDT Luigi Martínez [facility] CPT-21148 Level 4 Est. Patient 12:11:48 CDT Fabiola Johnson [facility] CPT-30599 Level 3 New Patient 16:53:37 CDT Albert Caldera MD [facility] CPT-21242 Level 3 Est. Patient 11:25:49 CDT Renzo Thornton DO [facility] CPT-91695 Level 3 Est. Patient 15:22:01 CDT Ahmet Carbajal MD [facility] CPT-77263 Level 4 Est. Patient 09:00:51 ELECTRONIC LAB TECHNICIAN Vishal Hui MD [facility] CPT-85298 Level 3 Est. Patient 11:37:33 ELECTRONIC LAB TECHNICIAN Vishal Hui MD [facility] CPT-98630 Level 3 Est. Patient 08:41:09 ELECTRONIC LAB TECHNICIAN Vishal Hui MD [facility] CPT-81404 Level 4 Est. Patient 10:19:35 ELECTRONIC LAB TECHNICIAN Vishal Hui MD [facility] CPT-38976 Level 3 Est. Patient 13:35:45 CDT Vishal Hui MD [facility] CPT-57043 Level 4 Est. Patient 10:08:37 CDT Vishal Hui MD [facility]-13913 Level 3 Est. Patient 11:22:10 CDT Vishal Hui MD [facility] CPT-06652 Level 3 Est. Patient 11:03:32 CDT Sahara Rodriguez MD [facility]-04216 Level 3 Est. Patient 09:41:35 CDT Vishal Hui MD [facility]-85353 Level 3 Est. Patient 12:00:41 CDT Neeraj Collins MD [facility]-57651 Level 3 Est. Patient 09:16:24 CDT Vishal Hui MD [facility] CPT-83212 Level 4 Est. Patient 13:59:09 CDT Neeraj Collins MD [facility] CPT-94111 Level 3 Est. Patient 15:19:43 CDT Renzo Thornton DO [facility] CPT-46918 Level 3 Est. Patient 18:10:26 CDT Sahara Rodriguez MD [facility]-70110 Level 3 Est. Patient 14:49:50 CDT Vishal Hui MD [facility]-76832 Level 4 Est. Patient 18:41:46 CDT Neeraj Collins MD [facility] CPT-69325 Level 4 Est. Patient 09:18:38 ELECTRONIC LAB TECHNICIAN Vishal Hui MD [facility]-53494 Level 3 Est. Patient 14:43:55 ELECTRONIC LAB TECHNICIAN Vishal Hui MD [facility] CPT-65449 Level 3 Est. Patient 15:26:33 ELECTRONIC LAB TECHNICIAN Sahara Rodriguez MD [facility]-26141 Level 3 Est. Patient 10:32:14 ELECTRONIC LAB TECHNICIAN Vishal Hui MD [facility] CPT-34620 Level 3 Est. Patient 15:12:52 ELECTRONIC LAB TECHNICIAN Vishal Hui MD [facility] CPT-92698 Level 4 Est. Patient 09:19:27 CDT Vishal Hui MD [facility] CPT-63500 Level 3 Est. Patient 15:53:00 CDT Renzo Thornton [facility] CPT-01563 Level 3 Est. Patient 15:50:30 CDT Renzo Thornton [facility] CPT-80682 Level 3 Est. Patient 16:55:24 CDT Vishal Hui MD [facility] Procedures Code Procedure Name Date Entry Date Standard Description CPT-20656 Venipuncture Draw Fee 08:41:12 CDT CPT-83769 Abd compl w upright - XRAY USE ONLY 10:27:59 CDT 06/28 CPT-94137 Smoking Cessation counseling 11:15:58 ELECTRONIC LAB TECHNICIAN CPT-G0439 [facility] Annual Wellness Exam 09:30:58 ELECTRONIC LAB TECHNICIAN CPT-26135 TSH - LAB USE ONLY 08:50:26 ELECTRONIC LAB TECHNICIAN CPT-40937 CBC - LAB USE ONLY 08:50:26 ELECTRONIC LAB TECHNICIAN CPT-31315 Venipuncture Draw Fee 08:50:26 ELECTRONIC LAB TECHNICIAN CPT-99499 Abx/Therapy Injection 17:34:30 ELECTRONIC LAB TECHNICIAN CPT-01543 Nexplanon Removal with Reinsertion 14:09:32 CDT CPT-J7307 Nexplanon (Implant) 14:09:32 CDT CPT-OV Office Visit 14:09:32 CDT CPT-70464 UA w micro - LAB USE ONLY 16:21:13 CDT CPT-76999 Wet Mount - LAB USE ONLY 16:21:13 CDT CPT-84309 First Vx - Ix admin for Medicare patients 14:37:47 CDT CPT-69542 Fluzone Preservative Free Intramuscular Suspension 14:37 :47 CDT CPT-90336 Abx/Therapy Injection 13:54:22 CDT CPT-33409 Abx/Therapy Injection 08:47:09 CDT CPT-64211 Abx/Therapy Injection 13:29:56 CDT CPT-67386 Abx/Therapy Injection 08:36:16 CDT CPT-63248 Wet Mount - LAB USE ONLY 17:44:58 CDT CPT-02215 UA w micro - LAB USE ONLY 17:44:58 CDT CPT-09683 CMP - LAB USE ONLY 17:44:58 CDT CPT-85775 Venipuncture Draw Fee 17:44:58 CDT CPT-87506 Cervical Min 4V - XRAY USE ONLY 09:01:40 CDT CPT-01870 Chest 2V Frontal and Lat - XRAY USE ONLY 11:06:31 CDT CPT-01863 EKG Trac and Interp - XRAY USE ONLY 11:31:43 CDT 08/26 CPT-J3420 Vitamin B12 1000mcg (Cyanocobalamin) 08:10:26 ELECTRONIC LAB TECHNICIAN 04/12 CPT-01789 Abx/Therapy Injection 08:10:26 ELECTRONIC LAB TECHNICIAN CPT-G0438 Initial Annual Wellness Exam 19:01:01 ELECTRONIC LAB TECHNICIAN CPT-J3420 Vitamin B12 1000mcg (Cyanocobalamin) 16:57:46 CDT 08/14 CPT-99003 Recombivax HB Injection Suspension 5 MCG/0.5ML 08:37:50 ELECTRONIC LAB TECHNICIAN CPT-11999 Immunization Single Admin 08:37:50 ELECTRONIC LAB TECHNICIAN CPT-J3420 Vitamin B12 1000mcg (Cyanocobalamin) 08:32:16 ELECTRONIC LAB TECHNICIAN 03/11 CPT-05102 Abx/Therapy Injection 08:32:16 ELECTRONIC LAB TECHNICIAN CPT-06701 Chest 2V Frontal and Lat 11:46:38 ELECTRONIC LAB TECHNICIAN CPT-84433 Venipuncture Draw Fee 09:12:45 ELECTRONIC LAB TECHNICIAN CPT-J3420 Vitamin B12 1000mcg (Cyanocobalamin) 08:50:15 ELECTRONIC LAB TECHNICIAN 02/08 CPT-28721 Abx/Therapy Injection 08:50:15 ELECTRONIC LAB TECHNICIAN CPT-Cryo Cryotherapy 10:19:35 ELECTRONIC LAB TECHNICIAN CPT-000 Give Appropriate Flu Vaccine 09:22:16 CDT CPT-J3420 Vitamin B12 1000mcg (Cyanocobalamin) 19:08:57 CDT 01/11 CPT-73310 Abx/Therapy Injection 19:08:57 CDT CPT-J3420 Vitamin B12 1000mcg (Cyanocobalamin) 08:19:08 CDT 12/11 CPT-76053 Abx/Therapy Injection 08:19:08 CDT CPT-J3420 Vitamin B12 1000mcg (Cyanocobalamin) 14:48:00 CDT 11/09 CPT-24082 Abx/Therapy Injection 14:47:59 CDT CPT-J3420 Vitamin B12 1000mcg (Cyanocobalamin) 08:34:04 CDT 10/09 CPT-58301 Abx/Therapy Injection 08:34:04 CDT CPT-J3420 Vitamin B12 1000mcg (Cyanocobalamin) 09:18:52 CDT 09/11 CPT-18510 Abx/Therapy Injection 09:18:52 CDT CPT-J3420 Vitamin B12 1000mcg (Cyanocobalamin) 08:35:44 CDT 09/04 CPT-06248 Abx/Therapy Injection 08:35:44 CDT CPT-98006 Immunization Single Admin 11:07:16 CDT CPT-14423 Hepatitis B adult IM 11:07:16 CDT CPT-J3420 Vitamin B12 1000mcg (Cyanocobalamin) 11:00:49 CDT 08/28 CPT-J1040 Depo Medrol 80 mg (Methyl Prednisolone Acetate) 11:00: 49 CDT CPT-86665 Abx/Therapy Injection 11:00:49 CDT CPT-J1040 Depo Medrol 80 mg (Methyl Prednisolone Acetate) 09:16: 23 CDT CPT-J3420 Vitamin B12 1000mcg (Cyanocobalamin) 08:27:05 CDT 08/20 CPT-47065 Abx/Therapy Injection 08:27:05 CDT CPT-87325 Recombivax HB Injection Suspension 5 MCG/0.5ML 10:00:41 CDT CPT-13036 Administration single or combination vaccine inc oral 10 :00:41 CDT CPT-09325 Sono transvag pelvis non OB uterus ovaries cervix 16:36: 57 CDT CPT-74559 LS spine comp w obliq 09:50:55 ELECTRONIC LAB TECHNICIAN CPT-68738 Abd compl w upright 09:50:55 ELECTRONIC LAB TECHNICIAN CPT-J1100 Decadron 4mg (Dexamethasone) 15:51:24 ELECTRONIC LAB TECHNICIAN CPT-J1030 Depo Medrol 40 mg (Methyl Prednisolone Acetate) 15:51: 24 ELECTRONIC LAB TECHNICIAN CPT-62593 Abx/Therapy Injection 15:51:24 ELECTRONIC LAB TECHNICIAN CPT-J1100 Decadron 4mg (Dexamethasone) 15:26:33 ELECTRONIC LAB TECHNICIAN CPT-J1030 Depo Medrol 40 mg (Methyl Prednisolone Acetate) 15:26: 33 ELECTRONIC LAB TECHNICIAN CPT-94561 Sono retroperitoneal complete kidneys and bladder 17:15: 30 CDT CPT-80654 Abd compl w upright 16:09:25 CDT CPT-J1100 Decadron 8mg (Dexamethasone) 17:07:57 CDT CPT-70981 Abx/Therapy Injection 17:07:57 CDT CPT-J1100 Decadron 8mg (Dexamethasone) 16:55:24 CDT CPT-20661 Chest 2V Frontal and Lat 16:32:44 CDT
--- OUTSIDE RECORDS SUMMARY | 2016-11-04 23:39 | XMS REPORT | Clinical Summary ---
Author Author Admin, Dereck Organization [facility] Address Unknown Phone Unavailable Allergies, Adverse Reactions, [...] Abdominal pain, right lower quadrant 789.03 Resolved iVshal Hui MD Abdominal pain, right lower quadrant [...] Active Ahmet Carbajal MD Generalized anxiety disorder Meeting Specialist well woman exam V72.31 Active Suzan [...] SOLN 1 drop PRN eye spasms TROPICAMIDE 19965387839 Active Samantha Stephan RMA Active RISPERDAL 4 MG ORAL TABS 1 tab at bedtime RISPERIDONE 86752505667 Active Samantha Stephan RMA Active LEVAQUIN 500 MG TABS 1 daily for infection LEVOFLOXACIN 67240775293 Active Suzan Boo APRN Active TESSALON PERLES 100 MG CAPS 1 three times a day as needed for cough BENZONATATE 43430388483 Active Suzan Boo APRN Active ZOFRAN 4 MG TABS 1 po q6hr PRN Nausea ONDANSETRON HCL No Longer Active Suzan Boo APRN Active FLUTICASONE PROPIONATE 50 MCG/ACT SUSP 2 sprays each nostril daily before bed. FLUTICASONE PROPIONATE 42612852648 No Longer Active Suzan Boo APRN Active ASPIRIN 325 MG ORAL TABS 1 tab q.d ASPIRIN 55289408149 No Longer Active Suzan Boo APRN Active HALOPERIDOL 10 MG ORAL TABS 1 tab q.d HALOPERIDOL 15968728294 No Longer Active Suzan Boo APRN Active GUAIFENESIN-CODEINE 100-10 MG/5ML SYRP 5ml every 4 to 6 hours as needed for cough GUAIFENESIN-CODEINE 71700900145 No Longer Active Suzan Boo APRN Active ZITHROMAX Z-EARNEST 250 MG TABS 2 today and then 1 daily for 4 days AZITHROMYCIN 16038773798 No Longer Active Suzan Boo APRN Active PREDNISONE 10 MG TABS 2 daily for 5 days then 1 daily for 5 days PREDNISONE 23137354694 Active Suzan Boo APRN Active CLONAZEPAM 1 MG ORAL TABS 1 twice a day and an additional 1 tablet every other day as needed for pseudoseizures or anxiety CLONAZEPAM 70043772775 Active Ahmet Carbajal MD Active HYDROCODONE-ACETAMINOPHEN 5-325 MG ORAL TABS 1 tab two times a day HYDROCODONE-ACETAMINOPHEN 73020976640 No Longer Active Ahmet Carbajal MD Active LAMICTAL 100 MG ORAL TABS 1 tab 2 times qd. LAMOTRIGINE 17993649358 Active Ahmet Carbajal MD Active PREDNISONE 20 MG TABS 2 daily for 5 days then 1 daily for 5 days PREDNISONE 17657296714 No Longer Active Ahmet Carbajal MD Active FLUTICASONE PROPIONATE 50 MCG/ACT SUSP 1 to 2 sprays each nostril daily for allergies FLUTICASONE PROPIONATE 00069666812 Active Tila Valenzuela Active BENADRYL 25 MG CAP 4 po at bedtime for insomnia DIPHENHYDRAMINE HCL 45017352370 No Longer Active Ahmet Carbajal MD Active ADVAIR DISKUS 250-50 MCG/DOSE INH AEPB 1 puff twice a day for asthma FLUTICASONE-SALMETEROL 43647351689 No Longer Active Ahmet Carbajal MD Active KLONOPIN 1 MG ORAL TABS 1 tab po TID CLONAZEPAM 49637458730 No Longer Active Ahmet Carbajal MD Active ABILIFY MAINTENA 400 MG IM SUSR 400mg injection every 26 days ARIPIPRAZOLE 09618668892 No Longer Active Ahmet Carbajal MD Active TRAMADOL HCL 50 MG TABS 1/2-1 tab TID PRN TRAMADOL HCL 02308658851 No Longer Active Ahmet Carbajal MD Active BACTRIM DS 800-160 MG TABS 1 twice a day SULFAMETHOXAZOLE- TRIMETHOPRIM 70591098078 No Longer Active Ahmet Carbajal MD Active PROAIR HFA 108 (90 BASE) MCG/ACT AERS 2 puffs four times a day as needed 2015 ALBUTEROL SULFATE 44418952630 Active Ahmet Carbajal MD Active EQ NICOTINE 21 MG/24HR TRANS PT24 Apply daily to stop smoking NICOTINE 57553147609 Active Ahmet Carbajal MD Active MONISTAT 7 COMBO PACK WOODROW 100 & 2 MG-% (9GM) VAG KIT 1 applicatorful per vagina q pm x 7 MICONAZOLE NITRATE 78476347953 No Longer Active Ahmet Carbajal MD Active FLAGYL 500 MG TAB 1 tablet by mouth bid METRONIDAZOLE 50918218318 No Longer Active Ahmet Carbajal MD Active OXYCODONE HCL ER 10 MG ORAL T12A 1/2 tab by mouth every 4 hours prn OXYCODONE HCL 14811969259 No Longer Active Ahmet Carbajal MD Active METHYLPREDNISOLONE 4 MG ORAL TABS po daily METHYLPREDNISOLONE 93402381803 No Longer Active Ahmet Carbajal MD Active LEVOFLOXACIN 500 MG ORAL TABS po daily LEVOFLOXACIN 16639199164 No Longer Active Ahmet Carbajal MD Active VIIBRYD 10 MG ORAL TABS Take 1 tablet once a day VILAZODONE HCL 88352023903 No Longer Active Ahmet Carbajal MD Active TOPAMAX 50 MG ORAL TABS 1 tab twice daily TOPIRAMATE 05598019242 No Longer Active Ahmet Carbajal MD Active DICLOFENAC SODIUM 50 MG TBEC 1 tablet by mouth four times daily PRN Pain 2015 DICLOFENAC SODIUM 41217999567 No Longer Active Ahmet Carbajal MD Active ADZENYS XR-ODT 6.3 MG ORAL TBED 1 tab po daily for ADHD AMPHETAMINE 74655867286 No Longer Active Ahmet Carbajal MD Active CHANTIX 1 MG TABS 1 twice a day to help quit smoking VARENICLINE TARTRATE 80574185309 No Longer Active Dipika Burgos MD Active CHANTIX STARTING MONTH EARNEST 0.5 MG X 11 & 1 MG X 42 TABS take as directed 2015 VARENICLINE TARTRATE 00001353839 No Longer Active Dipika Burgos MD Active TESSALON PERLES 100 MG CAP 1 to 2 tablets by mouth 3 times daily as needed for cough BENZONATATE 64842546682 No Longer Active Luigi Martínez APRN Active IMITREX 50 MG ORAL TABS 0.5 po x 1 PRN Headache. May repeat dose x 1 in 2 hours if needed SUMATRIPTAN SUCCINATE 07599020192 Active Ahmet Carbajal MD Active HYDROCODONE-ACETAMINOPHEN 5-325 MG TABS 1 to 2 four times a day as needed for pain use until can be seen by specialist HYDROCODONE- ACETAMINOPHEN 86387929020 No Longer Active Vishal Hui MD Active PROAIR HFA 108 (90 BASE) MCG/ACT AERS 2 puffs four times a day as needed 2015 ALBUTEROL SULFATE 91123341383 No Longer Active Vishal Hui MD Active PREDNISONE 20 MG TABS 2 daily for 5 days then 1 daily for 5 days PREDNISONE 61264185276 No Longer Active Vishal Hui MD Active ZITHROMAX Z-EARNEST 250 MG TABS 2 today and then 1 daily for 4 days AZITHROMYCIN 14246375580 No Longer Active Vishal Hui MD Active DICLOFENAC POTASSIUM TABS Take 1 tablet twice a day (pt. is not sure of the dose.) DICLOFENAC POTASSIUM TABS 25079492747 No Longer Active Vishal Hui MD Active VERAPAMIL HCL ER 120 MG ORAL CR-TABS Take 1 tablet by mouth twice a day. VERAPAMIL HCL 90397196703 Active Vishal Hui MD Active FLAGYL 500 MG TAB 1 tablet by mouth bid METRONIDAZOLE 65661669175 No Longer Active Vishal Hui MD Active VALIUM 5 MG TAB Take 1-2 tablets daily DIAZEPAM 96802514296 No Longer Active Fabiola Alex SECOND CUTTER Active METOPROLOL TARTRATE 25 MG ORAL TABS 1/2 tablet twice daily for heart rate and blood pressure METOPROLOL TARTRATE 54031640319 No Longer Active Fabiola Johnson APRN Active MIRALAX ORAL POWD 17GMS DAILY IN WATER POLYETHYLENE GLYCOL 3350 17454437343 Active TAMARA Casey Active MIRALAX PACK 1 po qd PRN Constipation POLYETHYLENE GLYCOL 3350 67637411458 No Longer Active Ahmet Carbajal MD Active MINIPRESS 2 MG CAPS 4 cap po at night PRAZOSIN HCL 79043831109 No Longer Active Ahmet Carbajal MD Active PIROXICAM 20 MG CAPS 1 cap po qd PRN Pain PIROXICAM 42960717020 No Longer Active Ahmet Carbajal MD Active TRAMADOL HCL 50 MG TABS 1-2 po TID PRN Pain TRAMADOL HCL 87003383262 No Longer Active Ahmet Carbajal MD Active METOPROLOL TARTRATE 50 MG TAB 1 po bid METOPROLOL TARTRATE 72370613946 No Longer Active Ahmet Carbajal MD Active ABILIFY 15 MG ORAL TABS 1 tab daily ARIPIPRAZOLE 24863015283 No Longer Active Ahmet Carbajal MD Active PROZAC 20 MG ORAL CAPS 1 tab daily FLUOXETINE HCL 30500526802 No Longer Active Ahmet Carbajal MD Active AMBIEN 5 MG ORAL TABS 1 tab at bedtime ZOLPIDEM TARTRATE 23355091145 No Longer Active Ahmet Carbajal MD Active PREDNISONE 20 MG TAB 2 tabs daily for 4 days, 1 tab daily for 4 days, 1/2 tab daily for 4 days PREDNISONE 97342974096 No Longer Active Ahmet Carbajal MD Active KEFLEX 500 MG CAP 1 po TID x 10 days CEPHALEXIN 77458898786 No Longer Active Vishal Hui MD Active SAPHRIS 5 MG SUBL 1 po bid ASENAPINE MALEATE 30699074349 No Longer Active Pacollina Mauricio SECOND CUTTER Active LATUDA 80 MG TABS Take one by mouth daily LURASIDONE HCL 05894975531 No Longer Active Jillina Frazell SECOND CUTTER Active AMLODIPINE BESYLATE 5 MG TABS 1 tablet by mouth daily AMLODIPINE BESYLATE 75393996796 No Longer Active Jillina Mauricio SECOND CUTTER Active AMITRIPTYLINE HCL 100 MG TAB one at hs AMITRIPTYLINE HCL 89475142331 No Longer Active Vsihal Hui MD Active TRAZODONE HCL 100 MG TAB take 1 at bedtime TRAZODONE HCL 06485579723 No Longer Active Vishal Hui MD Active VYVANSE 40 MG CAPS 1 daily, LISDEXAMFETAMINE DIMESYLATE 82843120963 No Longer Active Vishal Hui MD Active IBUPROFEN 600 MG TAB 1 po TID PRN IBUPROFEN 42109994373 No Longer Active Vishal Hui MD Active PROZAC 20 MG CAP Take one by mouth daily FLUOXETINE HCL 93851952163 No Longer Active Vishal Hui MD Active BACTRIM DS 800-160 MG TABS 1 pill by mouth twice daily SULFAMETHOXAZOLE-TRIMETHOPRIM 51353081811 No Longer Active Sahara Rodriguez MD PhD Active DIFLUCAN 150 MG TAB 1 tablet by mouth daily FLUCONAZOLE 90919134943 No Longer Active Vishal Hui MD Active TIZANIDINE HCL 4 MG TABS 1 po q6hr PRN Muscle Spasm/Back Pain TIZANIDINE HCL 55307485475 Active Vishal Hui MD Active CLINDAMYCIN HCL 150 MG CAPS 1 four times a day CLINDAMYCIN HCL 21248673168 No Longer Active Neeraj Collins MD Active KEFLEX 500 MG ORAL CAPS 1 cap QID by mouth CEPHALEXIN 32253025019 No Longer Active Neeraj Collins MD Active DIFLUCAN 150 MG TABS 1 pill every other day x 2 doses FLUCONAZOLE 94752966718 No Longer Active Sahara Rodriguez MD PhD Active MELATONIN 3 MG CAPS 2 po q hs MELATONIN 19765240586 No Longer Active Sahara Rodriguez MD PhD Active MULTIVITAMINS CAPS Take one by mouth daily MULTIPLE VITAMIN 16414363322 No Longer Active Sahara Rodriguez MD PhD Active BACTRIM DS 800-160 MG TAB 1 tab by mouth twice daily TRIMETHOPRIM-SULFAMETHOXAZOLE 17131489155 No Longer Active Sahara Rodriguez MD PhD Active [facility] PROBIOTIC ORAL CHEW 2 daily po PROBIOTIC PRODUCT 42576260455 No Longer Active Sahara Rodriguez MD PhD Active BACTRIM DS 800-160 MG TABS 1 po BID x 7 days SULFAMETHOXAZOLE-TRIMETHOPRIM 09250751231 No Longer Active Vishal Hui MD Active CHANTIX STARTING MONTH EARNEST 0.5 MG X 11 & 1 MG X 42 TABS 0.5mg daily for 3 days , then 0.5mg BID for 4 days, then 1mg BID VARENICLINE TARTRATE 57489319924 No Longer Active TAMARA Gray Active VERAPAMIL HCL CR 120 MG TAB CR 1 po bid VERAPAMIL HCL 33861592529 No Longer Active Vishal Hui MD Active METOPROLOL SUCCINATE 50 MG TB24 1 tablet by mouth daily METOPROLOL SUCCINATE 46388329394 No Longer Active Vishal Hui MD Active SAPHRIS 10 MG SUBL 1 tab po bid ASENAPINE MALEATE 10658059689 No Longer Active Vishal Hui MD Active LISINOPRIL 20 MG TABS 1 tab po qd LISINOPRIL 24521620727 No Longer Active Vishal Hui MD Active LATUDA 20 MG TABS Take one by mouth daily LURASIDONE HCL 28379738278 No Longer Active Vishal Hui MD Active TRAZODONE HCL 50 MG TABS 1/2 tab po qd prn for anxiety TRAZODONE HCL 39726888923 No Longer Active Vishal Hui MD Active OMEPRAZOLE 20 MG TBEC 1 po q a.m. 30min prior to first food intake OMEPRAZOLE 06012900571 Active TAMARA Casey Active RANITIDINE HCL 150 MG CAPS 1 twice a day RANITIDINE HCL 60851852774 Active Luigi Martínez APRN Active LINZESS 290 MCG CAPS Take one by mouth daily LINACLOTIDE 43565738890 No Longer Active Vishal Hui MD Active SAPHRIS 5 MG SUBL 1 tab po qd ASENAPINE MALEATE 57397926383 No Longer Active Vishal Hui MD Active ZALEPLON 10 MG CAPS 1 cap po every other night ZALEPLON 54859251188 No Longer Active Vishal Hui MD Active LYRICA 50 MG CAPS 1 tab po TID PREGABALIN 22442322143 No Longer Active Vishal Hui MD Active LORATADINE 10 MG TABS 1 tab po qd LORATADINE 97561192352 No Longer Active Vishal Hui MD Active VERAPAMIL HCL ER 180 MG CR-TABS 1 tab po bid VERAPAMIL HCL 01704384676 No Longer Active Vishal Hui MD Active MIRALAX POWD 1 capfull once daily POLYETHYLENE GLYCOL 3350 18452245179 No Longer Active Vishal Hui MD Active PREDNISONE 20 MG TABS 1 tab po qd PREDNISONE 17203021814 No Longer Active Renzo Thornton DO Active LEVOFLOXACIN 500 MG TABS 1 tab po qd LEVOFLOXACIN 25951257611 No Longer Active Renzo Thornton DO Active BUSPIRONE HCL 15 MG TABS 1 tab po TID BUSPIRONE HCL 26056929361 No Longer Active Renzo Thornton DO Active BENZTROPINE MESYLATE 1 MG TABS 1 tab po qd BENZTROPINE MESYLATE 94443816906 No Longer Active Renzo Thornton DO Active ATENOLOL 25 MG TABS 1 tab po qd ATENOLOL 88330561585 No Longer Active Renzo Thornton DO Active ESCITALOPRAM OXALATE 20 MG TABS 1 tab po qd ESCITALOPRAM OXALATE 63365410414 No Longer Active Renzo Thornton DO Active ADVAIR DISKUS 250-50 MCG/DOSE AEPB 1 puff BID FLUTICASONE-SALMETEROL 88505287562 No Longer Active Renzo Thornton DO Active PREDNISONE 20 MG TAB 2 tabs daily for 3 days, 1 tab daily for 3 days, 1/2 tab daily for 2 days PREDNISONE 33843793103 No Longer Active Vishal Hui MD Active CEFDINIR 300 MG CAPS by mouth twice a day CEFDINIR 91505844273 No Longer Active Vishal Hui MD Active LANSOPRAZOLE 30 MG CPDR 1 cap po qd LANSOPRAZOLE 82755018209 No Longer Active Vishal Hui MD Active BACLOFEN 20 MG TABS 1 tab po tid BACLOFEN 10437788054 No Longer Active Vishal Hui MD Active ADVAIR DISKUS 250-50 MCG/DOSE AEPB 1 puff BID ADVAIR DISKUS 250-50 MCG/DOSE AEPB FLUTICASONE-SALMETEROL Inactive ESCITALOPRAM OXALATE 20 MG TABS 1 tab po qd ESCITALOPRAM OXALATE 20 MG TABS 157746 ESCITALOPRAM OXALATE Inactive ATENOLOL 25 MG TABS 1 tab po qd ATENOLOL 25 MG TABS 943833 ATENOLOL Inactive BENZTROPINE MESYLATE 1 MG TABS 1 tab po qd BENZTROPINE MESYLATE 1 MG TABS 855450 BENZTROPINE MESYLATE Inactive BUSPIRONE HCL 15 MG TABS 1 tab po TID BUSPIRONE HCL 15 MG TABS 736315 BUSPIRONE HCL Inactive LEVOFLOXACIN 500 MG TABS 1 tab po qd LEVOFLOXACIN 500 MG TABS 234685 LEVOFLOXACIN Inactive PREDNISONE 20 MG TABS 1 tab po qd PREDNISONE 20 MG TABS 840415 PREDNISONE Inactive MIRALAX POWD 1 capfull once daily MIRALAX POWD 489078 POLYETHYLENE GLYCOL 3350 Inactive VERAPAMIL HCL ER 180 MG CR-TABS 1 tab po bid VERAPAMIL HCL ER 180 MG CR-TABS VERAPAMIL HCL Inactive LORATADINE 10 MG TABS 1 tab po qd LORATADINE 10 MG TABS 693856 LORATADINE Inactive LYRICA 50 MG CAPS 1 tab po TID LYRICA 50 MG CAPS PREGABALIN Inactive ZALEPLON 10 MG CAPS 1 cap po every other night ZALEPLON 10 MG CAPS 171026 ZALEPLON Inactive SAPHRIS 5 MG SUBL 1 tab po qd SAPHRIS 5 MG SUBL ASENAPINE MALEATE Inactive TRAZODONE HCL 50 MG TABS 1/2 tab po qd prn for anxiety TRAZODONE HCL 50 MG TABS 958240 TRAZODONE HCL Inactive LATUDA 20 MG TABS Take one by mouth daily LATUDA 20 MG TABS LURASIDONE HCL Inactive LISINOPRIL 20 MG TABS 1 tab po qd LISINOPRIL 20 MG TABS 285718 LISINOPRIL Inactive SAPHRIS 10 MG SUBL 1 [...] twice daily BACTRIM DS 800-160 MG TAB 776183 TRIMETHOPRIM-SULFAMETHOXAZOLE Inactive MULTIVITAMINS CAPS Take one by mouth daily MULTIVITAMINS CAPS MULTIPLE VITAMIN Inactive MELATONIN 3 MG CAPS 2 po q hs MELATONIN 3 MG CAPS 391091 MELATONIN Inactive KEFLEX 500 MG ORAL CAPS 1 cap QID by mouth KEFLEX 500 MG ORAL CAPS 302843 CEPHALEXIN Inactive CLINDAMYCIN HCL 150 MG CAPS 1 four times a day CLINDAMYCIN HCL 150 MG CAPS 947977 CLINDAMYCIN HCL Inactive DIFLUCAN 150 MG TAB 1 tablet by mouth daily DIFLUCAN 150 MG TAB 480928 FLUCONAZOLE Inactive PROZAC 20 MG CAP Take one by mouth daily PROZAC 20 MG CAP 676379 FLUOXETINE HCL Inactive IBUPROFEN 600 MG TAB 1 po TID PRN IBUPROFEN 600 MG TAB 598821 IBUPROFEN Inactive VYVANSE 40 MG CAPS 1 daily, VYVANSE 40 MG CAPS LISDEXAMFETAMINE DIMESYLATE Inactive TRAZODONE HCL 100 MG TAB take 1 at bedtime TRAZODONE HCL 100 MG TAB 968929 TRAZODONE HCL Inactive AMITRIPTYLINE HCL 100 MG TAB one at hs AMITRIPTYLINE HCL 100 MG TAB 999985 AMITRIPTYLINE HCL Inactive AMLODIPINE BESYLATE 5 MG TABS 1 tablet by mouth daily AMLODIPINE BESYLATE 5 MG TABS 264400 AMLODIPINE BESYLATE Inactive LATUDA 80 MG TABS Take one by mouth daily LATUDA 80 MG TABS LURASIDONE HCL Inactive SAPHRIS 5 MG SUBL 1 po bid SAPHRIS 5 MG SUBL ASENAPINE MALEATE Inactive PREDNISONE 20 MG TAB 2 tabs daily for 4 days, 1 tab daily for 4 days, 1/2 tab daily for 4 days PREDNISONE 20 MG TAB 414767 PREDNISONE Inactive AMBIEN 5 MG ORAL TABS 1 tab at bedtime AMBIEN 5 MG ORAL TABS 543839 ZOLPIDEM TARTRATE Inactive PROZAC 20 MG ORAL CAPS 1 tab daily PROZAC 20 MG ORAL CAPS 997199 FLUOXETINE HCL Inactive ABILIFY 15 MG ORAL TABS 1 tab daily ABILIFY 15 MG ORAL TABS 058845 ARIPIPRAZOLE Inactive METOPROLOL TARTRATE 50 MG TAB 1 po bid METOPROLOL TARTRATE 50 MG TAB 613719 METOPROLOL TARTRATE Inactive TRAMADOL HCL 50 MG TABS 1-2 po TID PRN Pain TRAMADOL HCL 50 MG TABS 364079 TRAMADOL HCL Inactive PIROXICAM 20 MG CAPS 1 cap po qd PRN Pain PIROXICAM 20 MG CAPS 818196 PIROXICAM Inactive MINIPRESS 2 MG CAPS 4 cap po at night MINIPRESS 2 MG CAPS 677332 PRAZOSIN HCL Inactive MIRALAX PACK 1 po qd PRN Constipation MIRALAX PACK 438962 POLYETHYLENE GLYCOL 3350 Inactive METOPROLOL TARTRATE 25 MG ORAL TABS 1/2 tablet twice daily for heart rate and blood pressure METOPROLOL TARTRATE 25 MG ORAL TABS 254206 METOPROLOL TARTRATE Inactive VALIUM 5 MG TAB Take 1-2 tablets daily VALIUM 5 MG TAB 641837 DIAZEPAM Inactive FLAGYL 500 MG TAB 1 tablet by mouth bid FLAGYL 500 MG TAB 082592 METRONIDAZOLE Inactive DICLOFENAC POTASSIUM TABS Take 1 tablet twice a day (pt. is not sure of the dose.) DICLOFENAC POTASSIUM TABS DICLOFENAC POTASSIUM TABS Inactive ZITHROMAX Z-EARNEST 250 MG TABS 2 today and then 1 daily for 4 days ZITHROMAX Z-EARNEST 250 MG TABS 7479440 AZITHROMYCIN Inactive PREDNISONE 20 MG TABS 2 daily for 5 days then 1 daily for 5 days PREDNISONE 20 MG TABS 579608 PREDNISONE Inactive PROAIR HFA 108 (90 BASE) MCG/ACT AERS 2 puffs four times a day as needed 2015 PROAIR HFA 108 (90 BASE) MCG/ACT AERS ALBUTEROL SULFATE Inactive HYDROCODONE-ACETAMINOPHEN 5-325 MG TABS 1 to 2 four times a day as needed for pain use until can be seen by specialist HYDROCODONE- ACETAMINOPHEN 5-325 MG TABS 176533 HYDROCODONE-ACETAMINOPHEN Inactive TESSALON PERLES 100 MG CAP 1 to 2 tablets by mouth 3 times daily as needed for cough TESSALON PERLES 100 MG CAP 103110 BENZONATATE Inactive CHANTIX STARTING MONTH EARNEST 0.5 [...] Pain 2015 DICLOFENAC SODIUM 50 MG TBEC 780412 DICLOFENAC SODIUM Inactive TOPAMAX 50 MG ORAL TABS 1 tab twice daily TOPAMAX 50 MG ORAL TABS 471532 TOPIRAMATE Inactive VIIBRYD 10 MG ORAL TABS Take 1 tablet once a day VIIBRYD 10 MG ORAL TABS VILAZODONE HCL Inactive LEVOFLOXACIN 500 MG ORAL TABS po daily LEVOFLOXACIN 500 MG ORAL TABS 975601 LEVOFLOXACIN Inactive METHYLPREDNISOLONE 4 MG ORAL TABS po daily METHYLPREDNISOLONE 4 MG ORAL TABS 763010 METHYLPREDNISOLONE Inactive OXYCODONE HCL ER 10 MG ORAL T12A 1/2 tab by mouth every 4 hours prn OXYCODONE HCL ER 10 MG ORAL T12A OXYCODONE HCL Inactive FLAGYL 500 MG TAB 1 tablet by mouth bid FLAGYL 500 MG TAB 945614 METRONIDAZOLE Inactive MONISTAT 7 COMBO PACK WOODROW 100 & 2 MG-% (9GM) VAG KIT 1 applicatorful per vagina q pm x 7 MONISTAT 7 COMBO PACK WOODROW 100 & 2 MG-% (9GM) VAG KIT MICONAZOLE NITRATE Inactive BACTRIM DS 800-160 MG TABS 1 twice a day BACTRIM DS 800-160 MG TABS 045162 SULFAMETHOXAZOLE-TRIMETHOPRIM Inactive TRAMADOL HCL 50 MG TABS 1/2-1 tab TID PRN TRAMADOL HCL 50 MG TABS 128650 TRAMADOL HCL Inactive ABILIFY MAINTENA 400 MG IM SUSR 400mg injection every 26 days ABILIFY MAINTENA 400 MG IM SUSR ARIPIPRAZOLE Inactive KLONOPIN 1 MG ORAL TABS 1 tab po TID KLONOPIN 1 MG ORAL TABS 427235 CLONAZEPAM Inactive ADVAIR DISKUS 250-50 MCG/DOSE INH AEPB 1 puff twice a day for asthma ADVAIR DISKUS 250-50 MCG/DOSE INH AEPB FLUTICASONE- SALMETEROL Inactive BENADRYL 25 MG CAP 4 po at bedtime for insomnia BENADRYL 25 MG CAP DIPHENHYDRAMINE HCL Inactive PREDNISONE 20 MG TABS 2 daily for 5 days then 1 daily for 5 days PREDNISONE 20 MG TABS 284911 PREDNISONE Inactive HYDROCODONE-ACETAMINOPHEN 5-325 MG ORAL TABS 1 tab two times a day HYDROCODONE-ACETAMINOPHEN 5-325 MG ORAL TABS 488031 HYDROCODONE-ACETAMINOPHEN Inactive ZITHROMAX Z-EARNEST 250 MG TABS 2 today and then 1 daily for 4 days ZITHROMAX Z-EARNEST 250 MG TABS 6208340 AZITHROMYCIN Inactive GUAIFENESIN-CODEINE 100-10 MG/5ML SYRP 5ml every 4 to 6 hours as needed for cough GUAIFENESIN-CODEINE 100-10 MG/5ML SYRP 126954 GUAIFENESIN-CODEINE Inactive HALOPERIDOL 10 MG ORAL TABS 1 tab q.d HALOPERIDOL 10 MG ORAL TABS 672423 HALOPERIDOL Inactive ASPIRIN 325 MG ORAL TABS 1 tab q.d ASPIRIN 325 MG ORAL TABS 574620 ASPIRIN Inactive FLUTICASONE PROPIONATE 50 MCG/ACT SUSP 2 sprays each nostril daily before bed. FLUTICASONE PROPIONATE 50 MCG/ACT SUSP 7794247 FLUTICASONE PROPIONATE Inactive ZOFRAN 4 MG TABS 1 po q6hr PRN Nausea ZOFRAN 4 MG TABS 624094 ONDANSETRON HCL Inactive CEFDINIR 300 MG CAPS by mouth twice a day CEFDINIR 300 MG CAPS 269094 CEFDINIR Inactive PREDNISONE 20 MG TAB 2 tabs daily for 3 days, 1 tab daily for 3 days, 1/2 tab daily for 2 days PREDNISONE 20 MG TAB 127155 PREDNISONE Inactive BACTRIM DS 800-160 MG TABS 1 po BID x 7 days BACTRIM DS 800-160 MG TABS 19820521 SULFAMETHOXAZOLE-TRIMETHOPRIM Inactive DIFLUCAN 150 MG TABS 1 pill every other day x 2 doses DIFLUCAN 150 MG TABS 142230 FLUCONAZOLE Inactive BACTRIM DS 800-160 MG TABS 1 pill by mouth twice daily BACTRIM DS 800-160 MG TABS 19820521 SULFAMETHOXAZOLE-TRIMETHOPRIM Inactive KEFLEX 500 MG CAP 1 po TID x 10 days KEFLEX 500 MG CAP 494291 CEPHALEXIN Inactive Advance Directives Directive Description Start [...] % 11.0-15.0 platelet count 443 THOUSAND/UL 10*3/mm3 662-734 5362/03/01 mean platelet volume 8.2 fL 7.5-12.5 Lab [...] 369 10^3/MM^3 10*3/mm3 142-424 Lab Report: Chlamydia/GC APTIMA/[id number] - Lab chlamydia DNA probe NOT DETECTED NOT DETECTED Lab Report: Chlamydia/GC APTIMA/15471 - Microbiology Neisseria gonorrhoeae DNA probe NOT DETECTED NOT DETECTED Lab Report: Chlamydia/GC APTIMA/12919, Urinalysis, Complete, with Reflex ... - Lab chlamydia DNA probe NOT DETECTED NOT DETECTED Lab Report: Chlamydia/GC APTIMA/25820, Urinalysis, Complete, with Reflex ... - Microbiology Neisseria gonorrhoeae DNA probe NOT DETECTED NOT DETECTED Lab Report: Chlamydia/GC APTIMA/12385, Urinalysis, Complete, with Reflex ... - Urinalysis microalbumin/total urine volume 2 mg/L Units converted. See lab report for original value. microalbumin/creatinine ratio, urine 9 MCG/MG CREAT mg/L <30 Lab Report: Comp. Metabolic Panel - Chemistry sodium, serum 142 mmol/L 105-834 7357/06/08 carbon dioxide, venous blood 27.6 mmol/L 21.0-32.0 potassium, serum 4.0 mmol/L 3.5-5.2 chloride, serum 105 mmol/L 98-107 blood glucose 95 mg/dL 65-110 urea nitrogen, blood 8 mg/dL 7-18 creatinine, serum 0.75 mg/dL 0.55-1.30 alanine aminotransferase (SGPT), serum 49 U/L 12-78 aspartate aminotransferase (SGOT), serum 28 U/L 15-37 calcium, serum 9.4 mg/dL 8.5-10.1 bilirubin, serum, total 0.30 mg/dL 0.00-1.00 sodium, serum 140 mmol/L 123-988 5455/08/08 carbon dioxide, venous blood 33.7 mmol/L 21.0-32.0 [...] mg/dL Encounters Code Encounter Date Provider Facility CPT-26836 Level 3 Est. Patient 15:28:23 RN PAIN MANAGEMENT Suzan Boo [facility] CPT-57209 Level 4 Est. Patient 10:20:54 RN PAIN MANAGEMENT Suzan Boo [facility] CPT-11853 Level 3 Est. Patient 11:47:37 RN PAIN MANAGEMENT Ahmet Carbajal MD [facility] CPT-77794 Level 3 Est. Patient 10:40:11 RN PAIN MANAGEMENT Ahmet Carbajal MD [facility] CPT-24627 Level 3 Est. Patient 15:07:06 RN PAIN MANAGEMENT Neeraj Collins MD [facility] CPT-14290 Level 4 Est. Patient 14:45:00 RN PAIN MANAGEMENT Ahmet Carbajal MD [facility] CPT-93910 Level 3 Est. Patient 13:59:59 CDT Luigi Martínez [facility] CPT-93753 Level 3 Est. Patient 18:18:53 CDT Neeraj Collins MD [facility] CPT-91926 Level 3 Est. Patient 15:50:44 CDT Vishal Hui MD [facility] CPT-38781 Level 3 Est. Patient 11:36:17 CDT Ahmet Carbajal MD [facility] CPT-84177 Level 3 Est. Patient 13:29:16 CDT Vishal Hui MD [facility] CPT-85819 Level 3 Est. Patient 14:27:52 CDT Neeraj Collins MD [facility] CPT-60388 Level 3 Est. Patient 08:56:03 CDT Luigi Martínez [facility] CPT-84005 Level 4 Est. Patient 12:11:48 CDT Fabiola Johnson APRN [facility] CPT-52314 Level 3 New Patient 16:53:37 CDT Albert Caldera MD [facility] CPT-08982 Level 3 Est. Patient 11:25:49 CDT Renzo Thornton DO [facility] CPT-89248 Level 3 Est. Patient 15:22:01 CDT Ahmet Carbajal MD [facility] CPT-83288 Level 4 Est. Patient 09:00:51 RN PAIN MANAGEMENT Vishal Hui MD [facility] CPT-19964 Level 3 Est. Patient 11:37:33 RN PAIN MANAGEMENT Vishal Hui MD [facility] CPT-97962 Level 3 Est. Patient 08:41:09 RN PAIN MANAGEMENT Vishal Hui MD [facility] CPT-05006 Level 4 Est. Patient 10:19:35 RN PAIN MANAGEMENT Vishal Hui MD [facility] CPT-98531 Level 3 Est. Patient 13:35:45 CDT Vishal Hui MD [facility] CPT-43944 Level 4 Est. Patient 10:08:37 CDT Vishal Hui MD [facility] CPT-17026 Level 3 Est. Patient 11:22:10 CDT Vishal Hui MD [facility] CPT-67639 Level 3 Est. Patient 11:03:32 CDT Sahara Rodriguez MD PhD [facility] CPT-87867 Level 3 Est. Patient 09:41:35 CDT Vishal Hui MD [facility] CPT-38445 Level 3 Est. Patient 12:00:41 CDT Neeraj Collins MD [facility] CPT-94952 Level 3 Est. Patient 09:16:24 CDT Vishal Hui MD [facility] CPT-43937 Level 4 Est. Patient 13:59:09 CDT Neeraj Collins MD [facility] CPT-32528 Level 3 Est. Patient 15:19:43 CDT Renzo Thornton [facility] CPT-37886 Level 3 Est. Patient 18:10:26 CDT Sahara Rodriguez MD [facility] CPT-17207 Level 3 Est. Patient 14:49:50 CDT Vishal Hui MD [facility] CPT-11630 Level 4 Est. Patient 18:41:46 CDT Neeraj Collins MD [facility] CPT-64708 Level 4 Est. Patient 09:18:38 RN PAIN MANAGEMENT Vishal Hui MD [facility] CPT-95244 Level 3 Est. Patient 14:43:55 RN PAIN MANAGEMENT Vishal Hui MD [facility] CPT-59198 Level 3 Est. Patient 15:26:33 RN PAIN MANAGEMENT Sahara Rodriguez MD PhD [facility] CPT-97278 Level 3 Est. Patient 10:32:14 RN PAIN MANAGEMENT Vishal Hui MD [facility] CPT-29386 Level 3 Est. Patient 15:12:52 RN PAIN MANAGEMENT Vishal Hui MD [facility] CPT-59469 Level 4 Est. Patient 09:19:27 CDT Vishal Hui MD [facility] CPT-23612 Level 3 Est. Patient 15:53:00 CDT Renzo Thornton [facility] CPT-41051 Level 3 Est. Patient 15:50:30 CDT Renzo Thornton [facility] CPT-55845 Level 3 Est. Patient 16:55:24 CDT Vishal Hui MD [facility] Procedures Code Procedure Name Date Entry Date Standard Description CPT-G0439 [facility] Annual Wellness Exam 09:30:58 RN PAIN MANAGEMENT CPT-54377 TSH - LAB USE ONLY 08:50:26 RN PAIN MANAGEMENT CPT-79394 CBC - LAB USE ONLY 08:50:26 RN PAIN MANAGEMENT CPT-16656 Venipuncture Draw Fee 08:50:26 RN PAIN MANAGEMENT CPT-73758 Abx/Therapy Injection 17:34:30 RN PAIN MANAGEMENT CPT-43547 Nexplanon Removal with Reinsertion 14:09:32 CDT CPT-J7307 Nexplanon (Implant) 14:09:32 CDT CPT-OV Office Visit 14:09:32 CDT CPT-80863 UA w micro - LAB USE ONLY 16:21:13 CDT CPT-44207 Wet Mount - LAB USE ONLY 16:21:13 CDT CPT-27158 First Vx - Ix admin for Medicare patients 14:37:47 CDT CPT-93777 Fluzone Preservative Free Intramuscular Suspension 14:37 :47 CDT CPT-79125 Abx/Therapy Injection 13:54:22 CDT CPT-67831 Abx/Therapy Injection 08:47:09 CDT CPT-85971 Abx/Therapy Injection 13:29:56 CDT CPT-34058 Abx/Therapy Injection 08:36:16 CDT CPT-78590 Wet Mount - LAB USE ONLY 17:44:58 CDT CPT-97808 UA w micro - LAB USE ONLY 17:44:58 CDT CPT-35872 CMP - LAB USE ONLY 17:44:58 CDT CPT-05258 Venipuncture Draw Fee 17:44:58 CDT CPT-12793 Cervical Min 4V - XRAY USE ONLY 09:01:40 CDT CPT-23419 Chest 2V Frontal and Lat - XRAY USE ONLY 11:06:31 CDT CPT-39223 EKG Trac and Interp - XRAY USE ONLY 11:31:43 CDT 08/26 CPT-J3420 Vitamin B12 1000mcg (Cyanocobalamin) 08:10:26 RN PAIN MANAGEMENT 04/12 CPT-58458 Abx/Therapy Injection 08:10:26 RN PAIN MANAGEMENT CPT-G0438 Initial Annual Wellness Exam 19:01:01 RN PAIN MANAGEMENT CPT-J3420 Vitamin B12 1000mcg (Cyanocobalamin) 16:57:46 CDT 08/14 CPT-90104 Recombivax HB Injection Suspension 5 MCG/0.5ML 08:37:50 RN PAIN MANAGEMENT CPT-11037 Immunization Single Admin 08:37:50 RN PAIN MANAGEMENT CPT-J3420 Vitamin B12 1000mcg (Cyanocobalamin) 08:32:16 RN PAIN MANAGEMENT 03/11 CPT-48134 Abx/Therapy Injection 08:32:16 RN PAIN MANAGEMENT CPT-17919 Chest 2V Frontal and Lat 11:46:38 RN PAIN MANAGEMENT CPT-13818 Venipuncture Draw Fee 09:12:45 RN PAIN MANAGEMENT CPT-J3420 Vitamin B12 1000mcg (Cyanocobalamin) 08:50:15 RN PAIN MANAGEMENT 02/08 CPT-72617 Abx/Therapy Injection 08:50:15 RN PAIN MANAGEMENT CPT-Cryo Cryotherapy 10:19:35 RN PAIN MANAGEMENT CPT-000 Give Appropriate Flu Vaccine 09:22:16 CDT CPT-J3420 Vitamin B12 1000mcg (Cyanocobalamin) 19:08:57 CDT 01/11 CPT-23239 Abx/Therapy Injection 19:08:57 CDT CPT-J3420 Vitamin B12 1000mcg (Cyanocobalamin) 08:19:08 CDT 12/11 CPT-78276 Abx/Therapy Injection 08:19:08 CDT CPT-J3420 Vitamin B12 1000mcg (Cyanocobalamin) 14:48:00 CDT 11/09 CPT-28320 Abx/Therapy Injection 14:47:59 CDT CPT-J3420 Vitamin B12 1000mcg (Cyanocobalamin) 08:34:04 CDT 10/09 CPT-30380 Abx/Therapy Injection 08:34:04 CDT CPT-J3420 Vitamin B12 1000mcg (Cyanocobalamin) 09:18:52 CDT 09/11 CPT-25938 Abx/Therapy Injection 09:18:52 CDT CPT-J3420 Vitamin B12 1000mcg (Cyanocobalamin) 08:35:44 CDT 09/04 CPT-31321 Abx/Therapy Injection 08:35:44 CDT CPT-92305 Immunization Single Admin 11:07:16 CDT CPT-79646 Hepatitis B adult IM 11:07:16 CDT CPT-J3420 Vitamin B12 1000mcg (Cyanocobalamin) 11:00:49 CDT 08/28 CPT-J1040 Depo Medrol 80 mg (Methyl Prednisolone Acetate) 11:00: 49 CDT CPT-16526 Abx/Therapy Injection 11:00:49 CDT CPT-J1040 Depo Medrol 80 mg (Methyl Prednisolone Acetate) 09:16: 23 CDT CPT-J3420 Vitamin B12 1000mcg (Cyanocobalamin) 08:27:05 CDT 08/20 CPT-91450 Abx/Therapy Injection 08:27:05 CDT CPT-13631 Recombivax HB Injection Suspension 5 MCG/0.5ML 10:00:41 CDT CPT-32835 Administration single or combination vaccine inc oral 10 :00:41 CDT CPT-75062 Sono transvag pelvis non OB uterus ovaries cervix 16:36: 57 CDT CPT-94720 LS spine comp w obliq 09:50:55 RN PAIN MANAGEMENT CPT-55700 Abd compl w upright 09:50:55 RN PAIN MANAGEMENT CPT-J1100 Decadron 4mg (Dexamethasone) 15:51:24 RN PAIN MANAGEMENT CPT-J1030 Depo Medrol 40 mg (Methyl Prednisolone Acetate) 15:51: 24 RN PAIN MANAGEMENT CPT-40488 Abx/Therapy Injection 15:51:24 RN PAIN MANAGEMENT CPT-J1100 Decadron 4mg (Dexamethasone) 15:26:33 RN PAIN MANAGEMENT CPT-J1030 Depo Medrol 40 mg (Methyl Prednisolone Acetate) 15:26: 33 RN PAIN MANAGEMENT CPT-88935 Sono retroperitoneal complete kidneys and bladder 17:15: 30 CDT CPT-56245 Abd compl w upright 16:09:25 CDT CPT-J1100 Decadron 8mg (Dexamethasone) 17:07:57 CDT CPT-31647 Abx/Therapy Injection 17:07:57 CDT CPT-J1100 Decadron 8mg (Dexamethasone) 16:55:24 CDT CPT-60258 Chest 2V Frontal and Lat 16:32:44 CDT
--- OUTSIDE RECORDS SUMMARY | 2016-11-04 23:42 | XMS REPORT | Clinical Summary ---
Author Author Admin, FLOR Organization [employer] Address Unknown Phone Unavailable Allergies, Adverse [...] sites Morbid obesity 278.01 Active Juliet Kimbrough [employer] Morbid obesity 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 Active [...] breath Nocturnal hypoxia 799.02 Active Fabiola Johnson [employer] Hypoxemia Neck pain 723.1 Resolved Vishal [...] fibula Vaginal discharge 623.5 Active Luigi Martínez [employer] Leukorrhea, not specified as infective DYSURIA [...] as needed for pseudoseizures or anxiety CLONAZEPAM 56787980967 Active Ahmet Carbajal MD Active HYDROCODONE-ACETAMINOPHEN 5-325 MG ORAL TABS 1 tab two times a day HYDROCODONE-ACETAMINOPHEN 00263490425 No Longer Active Ahmet Carbajal MD Active LAMICTAL 100 MG ORAL TABS 1 tab 2 times qd. LAMOTRIGINE 07833080712 Active Ahmet Carbajal MD Active PREDNISONE 20 MG TABS 2 daily for 5 days then 1 daily for 5 days PREDNISONE 79445384958 No Longer Active Ahmet Carbajal MD Active FLUTICASONE PROPIONATE 50 MCG/ACT SUSP 1 to 2 sprays each nostril daily for allergies FLUTICASONE PROPIONATE 84958619509 Active Tila Valenzuela Active GUAIFENESIN-CODEINE 100-10 MG/5ML SYRP 5ml every 4 to 6 hours as needed for cough GUAIFENESIN-CODEINE 39064809358 Active Ahmet Carbajal MD Active BENADRYL 25 MG CAP 4 po at bedtime for insomnia DIPHENHYDRAMINE HCL 85486383085 No Longer Active Ahmet Carbajal MD Active ADVAIR DISKUS 250-50 MCG/DOSE INH AEPB 1 puff twice a day for asthma FLUTICASONE-SALMETEROL 72175649443 No Longer Active Ahmet Carbajal MD Active KLONOPIN 1 MG ORAL TABS 1 tab po TID CLONAZEPAM 44366441415 No Longer Active Ahmet Carbajal MD Active ABILIFY MAINTENA 400 MG IM SUSR 400mg injection every 26 days ARIPIPRAZOLE 45703561989 No Longer Active Ahmet Carbajal MD Active HALOPERIDOL 10 MG ORAL TABS 1 tab q.d HALOPERIDOL 19310344822 Active Ahmet Carbajal MD Active ASPIRIN 325 MG ORAL TABS 1 tab q.d ASPIRIN 03562724503 Active Ahmet Carbajal MD Active TRAMADOL HCL 50 MG TABS 1/2-1 tab TID PRN TRAMADOL HCL 43272219663 No Longer Active Ahmet Carbajal MD Active BACTRIM DS 800-160 MG TABS 1 twice a day SULFAMETHOXAZOLE- TRIMETHOPRIM 31950703302 No Longer Active Ahmet Carbajal MD Active PROAIR HFA 108 (90 BASE) MCG/ACT AERS 2 puffs four times a day as needed 2015 ALBUTEROL SULFATE 49953086978 Active Ahmet Carabjal MD Active EQ NICOTINE 21 MG/24HR TRANS PT24 Apply daily to stop smoking NICOTINE 22333186664 Active Ahmet Carbajal MD Active MONISTAT 7 COMBO PACK WOODROW 100 & 2 MG-% (9GM) VAG KIT 1 applicatorful per vagina q pm x 7 MICONAZOLE NITRATE 53478475563 No Longer Active Ahmet Carbajal MD Active FLAGYL 500 MG TAB 1 tablet by mouth bid METRONIDAZOLE 26176294323 No Longer Active Ahmet Carbajal MD Active OXYCODONE HCL ER 10 MG ORAL T12A 1/2 tab by mouth every 4 hours prn OXYCODONE HCL 09356694227 No Longer Active Ahmet Carbajal MD Active METHYLPREDNISOLONE 4 MG ORAL TABS po daily METHYLPREDNISOLONE 56139304041 No Longer Active Ahmet Carbajal MD Active LEVOFLOXACIN 500 MG ORAL TABS po daily LEVOFLOXACIN 62166455023 No Longer Active Ahmet Carbajal MD Active VIIBRYD 10 MG ORAL TABS Take 1 tablet once a day VILAZODONE HCL 42979538523 No Longer Active Ahmet Carbajal MD Active TOPAMAX 50 MG ORAL TABS 1 tab twice daily TOPIRAMATE 61076901684 No Longer Active Ahmet Carbajal MD Active DICLOFENAC SODIUM 50 MG TBEC 1 tablet by mouth four times daily PRN Pain 2015 DICLOFENAC SODIUM 42276985824 No Longer Active Ahmet Carbajal MD Active ADZENYS XR-ODT 6.3 MG ORAL TBED 1 tab po daily for ADHD AMPHETAMINE 11563361756 No Longer Active Ahmet Carbajal MD Active CHANTIX 1 MG TABS 1 twice a day to help quit smoking VARENICLINE TARTRATE 39934323382 No Longer Active Dipika Burgos MD Active CHANTIX STARTING MONTH EARNEST 0.5 MG X 11 & 1 MG X 42 TABS take as directed 2015 VARENICLINE TARTRATE 90127014715 No Longer Active Dipika Burgos MD Active TESSALON PERLES 100 MG CAP 1 to 2 tablets by mouth 3 times daily as needed for cough BENZONATATE 93108950231 No Longer Active Luigi Martínez APRN Active IMITREX 50 MG ORAL TABS 0.5 po x 1 PRN Headache. May repeat dose x 1 in 2 hours if needed SUMATRIPTAN SUCCINATE 05395054140 Active Ahmet Carbajal MD Active HYDROCODONE-ACETAMINOPHEN 5-325 MG TABS 1 to 2 four times a day as needed for pain use until can be seen by specialist HYDROCODONE- ACETAMINOPHEN 52479206501 No Longer Active Vishal Hui MD Active PROAIR HFA 108 (90 BASE) MCG/ACT AERS 2 puffs four times a day as needed 2015 ALBUTEROL SULFATE 92204480262 No Longer Active Vishal Hui MD Active PREDNISONE 20 MG TABS 2 daily for 5 days then 1 daily for 5 days PREDNISONE 51770511043 No Longer Active Vishal Hui MD Active ZITHROMAX Z-EARNEST 250 MG TABS 2 today and then 1 daily for 4 days AZITHROMYCIN 00539342209 No Longer Active Vishal Hui MD Active DICLOFENAC POTASSIUM TABS Take 1 tablet twice a day (pt. is not sure of the dose.) DICLOFENAC POTASSIUM TABS 92326980109 No Longer Active Vishal Hui MD Active VERAPAMIL HCL ER 120 MG ORAL CR-TABS Take 1 tablet by mouth twice a day. VERAPAMIL HCL 77313491149 Active Vishal Hui MD Active FLAGYL 500 MG TAB 1 tablet by mouth bid METRONIDAZOLE 78499379721 No Longer Active Vishal Hui MD Active FLUTICASONE PROPIONATE 50 MCG/ACT SUSP 2 sprays each nostril daily before bed. FLUTICASONE PROPIONATE 13921366341 Active Fabiola Johnson APRN Active VALIUM 5 MG TAB Take 1-2 tablets daily DIAZEPAM 43834159913 No Longer Active Fabiola Johnson APRN Active METOPROLOL TARTRATE 25 MG ORAL TABS 1/2 tablet twice daily for heart rate and blood pressure METOPROLOL TARTRATE 87919574700 No Longer Active Fabiola Johnson APRN Active MIRALAX ORAL POWD 17GMS DAILY IN WATER POLYETHYLENE GLYCOL 3350 51159846309 Active Vishal Hui MD Active MIRALAX PACK 1 po qd PRN Constipation POLYETHYLENE GLYCOL 3350 34347990896 No Longer Active Ahmet Carbajal MD Active MINIPRESS 2 MG CAPS 4 cap po at night PRAZOSIN HCL 20386586376 No Longer Active Ahmet Carbajal MD Active PIROXICAM 20 MG CAPS 1 cap po qd PRN Pain PIROXICAM 04541402346 No Longer Active Ahmet Carbajal MD Active TRAMADOL HCL 50 MG TABS 1-2 po TID PRN Pain TRAMADOL HCL 02101234156 No Longer Active Ahmet Carbajal MD Active METOPROLOL TARTRATE 50 MG TAB 1 po bid METOPROLOL TARTRATE 17410063626 No Longer Active Ahmet Carbajal MD Active ABILIFY 15 MG ORAL TABS 1 tab daily ARIPIPRAZOLE 45582725612 No Longer Active Ahmet Carbajal MD Active PROZAC 20 MG ORAL CAPS 1 tab daily FLUOXETINE HCL 94195311646 No Longer Active Ahmet Carbajal MD Active AMBIEN 5 MG ORAL TABS 1 tab at bedtime ZOLPIDEM TARTRATE 63013425854 No Longer Active Ahmet Carbajal MD Active PREDNISONE 20 MG TAB 2 tabs daily for 4 days, 1 tab daily for 4 days, 1/2 tab daily for 4 days PREDNISONE 42408528487 No Longer Active Ahmet Carbajal MD Active KEFLEX 500 MG CAP 1 po TID x 10 days CEPHALEXIN 03480068298 No Longer Active Vishal Hui MD Active SAPHRIS 5 MG SUBL 1 po bid ASENAPINE MALEATE 70681281867 No Longer Active Jillina Mauricio [employer] Active LATUDA 80 MG TABS Take one by mouth daily LURASIDONE HCL 76373314477 No Longer Active Jillina Frazell [employer] Active AMLODIPINE BESYLATE 5 MG TABS 1 tablet by mouth daily AMLODIPINE BESYLATE 45413754195 No Longer Active Jillina Fradwightl [employer] Active AMITRIPTYLINE HCL 100 MG TAB one at hs AMITRIPTYLINE HCL 93808937196 No Longer Active Vishal Hui MD Active TRAZODONE HCL 100 MG TAB take 1 at bedtime TRAZODONE HCL 91176303931 No Longer Active Vishal Hui MD Active VYVANSE 40 MG CAPS 1 daily, LISDEXAMFETAMINE DIMESYLATE 20656695575 No Longer Active Vishal Hui MD Active IBUPROFEN 600 MG TAB 1 po TID PRN IBUPROFEN 59982618891 No Longer Active Vishal Hui MD Active PROZAC 20 MG CAP Take one by mouth daily FLUOXETINE HCL 24519364057 No Longer Active Vishal Hui MD Active ZOFRAN 4 MG TABS 1 po q6hr PRN Nausea ONDANSETRON HCL Active Vishla Hui MD Active BACTRIM DS 800-160 MG TABS 1 pill by mouth twice daily SULFAMETHOXAZOLE-TRIMETHOPRIM 35793171894 No Longer Active Sahara Rodriguez MD PhD Active DIFLUCAN 150 MG TAB 1 tablet by mouth daily FLUCONAZOLE 72062550689 No Longer Active Vishal Hui MD Active TIZANIDINE HCL 4 MG TABS 1 po q6hr PRN Muscle Spasm/Back Pain TIZANIDINE HCL 84611809099 Active Vishal Hui MD Active CLINDAMYCIN HCL 150 MG CAPS 1 four times a day CLINDAMYCIN HCL 82280437318 No Longer Active Neeraj Collins MD Active KEFLEX 500 MG ORAL CAPS 1 cap QID by mouth CEPHALEXIN 37111536731 No Longer Active Neeraj Collins MD Active DIFLUCAN 150 MG TABS 1 pill every other day x 2 doses FLUCONAZOLE 38409307976 No Longer Active Sahara Rodriguez MD PhD Active MELATONIN 3 MG CAPS 2 po q hs MELATONIN 28435305225 No Longer Active Sahara Rodriguez MD PhD Active MULTIVITAMINS CAPS Take one by mouth daily MULTIPLE VITAMIN 65194520858 No Longer Active Sahara Rodriguez MD PhD Active BACTRIM DS 800-160 MG TAB 1 tab by mouth twice daily TRIMETHOPRIM-SULFAMETHOXAZOLE 88292629360 No Longer Active Sahara Rodriguez MD PhD Active [facility] PROBIOTIC ORAL CHEW 2 daily po PROBIOTIC PRODUCT 77516394570 No Longer Active Sahara Rodriguez MD PhD Active BACTRIM DS 800-160 MG TABS 1 po BID x 7 days SULFAMETHOXAZOLE-TRIMETHOPRIM 82751857907 No Longer Active Vishal Hui MD Active CHANTIX STARTING MONTH EARNEST 0.5 MG X 11 & 1 MG X 42 TABS 0.5mg daily for 3 days , then 0.5mg BID for 4 days, then 1mg BID VARENICLINE TARTRATE 90939899619 No Longer Active TAMARA Gray Active VERAPAMIL HCL CR 120 MG TAB CR 1 po bid VERAPAMIL HCL 07056461813 No Longer Active Vishal Hui MD Active METOPROLOL SUCCINATE 50 MG TB24 1 tablet by mouth daily METOPROLOL SUCCINATE 82974101716 No Longer Active Vishal Hui MD Active SAPHRIS 10 MG SUBL 1 tab po bid ASENAPINE MALEATE 54057828484 No Longer Active Vishal Hui MD Active LISINOPRIL 20 MG TABS 1 tab po qd LISINOPRIL 95711173466 No Longer Active Vishal Hui MD Active LATUDA 20 MG TABS Take one by mouth daily LURASIDONE HCL 08587367077 No Longer Active Vishal Hui MD Active TRAZODONE HCL 50 MG TABS 1/2 tab po qd prn for anxiety TRAZODONE HCL 64039653149 No Longer Active Vishal Hui MD Active OMEPRAZOLE 20 MG TBEC 1 po q a.m. 30min prior to first food intake OMEPRAZOLE 92770887668 Active Vishal Hui MD Active RANITIDINE HCL 150 MG CAPS 1 twice a day RANITIDINE HCL 78643623166 Active Luigi Martínez APRN Active LINZESS 290 MCG CAPS Take one by mouth daily LINACLOTIDE 49229211828 No Longer Active Vishal Hui MD Active SAPHRIS 5 MG SUBL 1 tab po qd ASENAPINE MALEATE 60810162469 No Longer Active Vishal Hui MD Active ZALEPLON 10 MG CAPS 1 cap po every other night ZALEPLON 11584962546 No Longer Active Vishal Hui MD Active LYRICA 50 MG CAPS 1 tab po TID PREGABALIN 70001457297 No Longer Active Vishal Hui MD Active LORATADINE 10 MG TABS 1 tab po qd LORATADINE 60589606774 No Longer Active Vishal Hui MD Active VERAPAMIL HCL ER 180 MG CR-TABS 1 tab po bid VERAPAMIL HCL 29120177832 No Longer Active Vishal Hui MD Active MIRALAX POWD 1 capfull once daily POLYETHYLENE GLYCOL 3350 65609326645 No Longer Active Vishal Hui MD Active PREDNISONE 20 MG TABS 1 tab po qd PREDNISONE 54317875481 No Longer Active Renzo Thornton DO Active LEVOFLOXACIN 500 MG TABS 1 tab po qd LEVOFLOXACIN 63303969547 No Longer Active Renzo Thornton DO Active BUSPIRONE HCL 15 MG TABS 1 tab po TID BUSPIRONE HCL 33935061822 No Longer Active Renzo Thornton DO Active BENZTROPINE MESYLATE 1 MG TABS 1 tab po qd BENZTROPINE MESYLATE 99221684115 No Longer Active Renzo Thornton DO Active ATENOLOL 25 MG TABS 1 tab po qd ATENOLOL 76644362582 No Longer Active Renzo Thornton DO Active ESCITALOPRAM OXALATE 20 MG TABS 1 tab po qd ESCITALOPRAM OXALATE 62798269647 No Longer Active Renzo Thornton DO Active ADVAIR DISKUS 250-50 MCG/DOSE AEPB 1 puff BID FLUTICASONE-SALMETEROL 56691789092 No Longer Active Renzo Thornton DO Active PREDNISONE 20 MG TAB 2 tabs daily for 3 days, 1 tab daily for 3 days, 1/2 tab daily for 2 days PREDNISONE 62421117393 No Longer Active Vishal Hui MD Active CEFDINIR 300 MG CAPS by mouth twice a day CEFDINIR 91128193478 No Longer Active Vishal Hui MD Active LANSOPRAZOLE 30 MG CPDR 1 cap po qd LANSOPRAZOLE 51014008092 No Longer Active Vishal Hiu MD Active BACLOFEN 20 MG TABS 1 tab po tid BACLOFEN 35725780480 No Longer Active Vishal Hui MD Active ADVAIR DISKUS 250-50 MCG/DOSE AEPB 1 puff BID ADVAIR DISKUS 250-50 MCG/DOSE AEPB FLUTICASONE-SALMETEROL Inactive ESCITALOPRAM OXALATE 20 MG TABS 1 tab po qd ESCITALOPRAM OXALATE 20 MG TABS 643304 ESCITALOPRAM OXALATE Inactive ATENOLOL 25 MG TABS 1 tab po qd ATENOLOL 25 MG TABS 114483 ATENOLOL Inactive BENZTROPINE MESYLATE 1 MG TABS 1 tab po qd BENZTROPINE MESYLATE 1 MG TABS 394089 BENZTROPINE MESYLATE Inactive BUSPIRONE HCL 15 MG TABS 1 tab po TID BUSPIRONE HCL 15 MG TABS 316158 BUSPIRONE HCL Inactive LEVOFLOXACIN 500 MG TABS 1 tab po qd LEVOFLOXACIN 500 MG TABS 921914 LEVOFLOXACIN Inactive PREDNISONE 20 MG TABS 1 tab po qd PREDNISONE 20 MG TABS 035285 PREDNISONE Inactive MIRALAX POWD 1 capfull once daily MIRALAX POWD 310162 POLYETHYLENE GLYCOL 3350 Inactive VERAPAMIL HCL ER 180 MG CR-TABS 1 tab po bid VERAPAMIL HCL ER 180 MG CR-TABS VERAPAMIL HCL Inactive LORATADINE 10 MG TABS 1 tab po qd LORATADINE 10 MG TABS 021187 LORATADINE Inactive LYRICA 50 MG CAPS 1 tab po TID LYRICA 50 MG CAPS PREGABALIN Inactive ZALEPLON 10 MG CAPS 1 cap po every other night ZALEPLON 10 MG CAPS 313631 ZALEPLON Inactive SAPHRIS 5 MG SUBL 1 tab po qd SAPHRIS 5 MG SUBL ASENAPINE MALEATE Inactive TRAZODONE HCL 50 MG TABS 1/2 tab po qd prn for anxiety TRAZODONE HCL 50 MG TABS 651457 TRAZODONE HCL Inactive LATUDA 20 MG TABS Take one by mouth daily LATUDA 20 MG TABS LURASIDONE HCL Inactive LISINOPRIL 20 MG TABS 1 tab po qd LISINOPRIL 20 MG TABS 550095 LISINOPRIL Inactive SAPHRIS 10 MG SUBL 1 [...] twice daily BACTRIM DS 800-160 MG TAB 859056 TRIMETHOPRIM-SULFAMETHOXAZOLE Inactive MULTIVITAMINS CAPS Take one by mouth daily MULTIVITAMINS CAPS MULTIPLE VITAMIN Inactive MELATONIN 3 MG CAPS 2 po q hs MELATONIN 3 MG CAPS 375262 MELATONIN Inactive KEFLEX 500 MG ORAL CAPS 1 cap QID by mouth KEFLEX 500 MG ORAL CAPS 125889 CEPHALEXIN Inactive CLINDAMYCIN HCL 150 MG CAPS 1 four times a day CLINDAMYCIN HCL 150 MG CAPS 19740326 CLINDAMYCIN HCL Inactive DIFLUCAN 150 MG TAB 1 tablet by mouth daily DIFLUCAN 150 MG TAB 849275 FLUCONAZOLE Inactive PROZAC 20 MG CAP Take one by mouth daily PROZAC 20 MG CAP 815653 FLUOXETINE HCL Inactive IBUPROFEN 600 MG TAB 1 po TID PRN IBUPROFEN 600 MG TAB 017614 IBUPROFEN Inactive VYVANSE 40 MG CAPS 1 daily, VYVANSE 40 MG CAPS LISDEXAMFETAMINE DIMESYLATE Inactive TRAZODONE HCL 100 MG TAB take 1 at bedtime TRAZODONE HCL 100 MG TAB 973084 TRAZODONE HCL Inactive AMITRIPTYLINE HCL 100 MG TAB one at hs AMITRIPTYLINE HCL 100 MG TAB 416711 AMITRIPTYLINE HCL Inactive AMLODIPINE BESYLATE 5 MG TABS 1 tablet by mouth daily AMLODIPINE BESYLATE 5 MG TABS 856700 AMLODIPINE BESYLATE Inactive LATUDA 80 MG TABS Take one by mouth daily LATUDA 80 MG TABS LURASIDONE HCL Inactive SAPHRIS 5 MG SUBL 1 po bid SAPHRIS 5 MG SUBL ASENAPINE MALEATE Inactive PREDNISONE 20 MG TAB 2 tabs daily for 4 days, 1 tab daily for 4 days, 1/2 tab daily for 4 days PREDNISONE 20 MG TAB 611373 PREDNISONE Inactive AMBIEN 5 MG ORAL TABS 1 tab at bedtime AMBIEN 5 MG ORAL TABS 094798 ZOLPIDEM TARTRATE Inactive PROZAC 20 MG ORAL CAPS 1 tab daily PROZAC 20 MG ORAL CAPS 485430 FLUOXETINE HCL Inactive ABILIFY 15 MG ORAL TABS 1 tab daily ABILIFY 15 MG ORAL TABS 165655 ARIPIPRAZOLE Inactive METOPROLOL TARTRATE 50 MG TAB 1 po bid METOPROLOL TARTRATE 50 MG TAB 885065 METOPROLOL TARTRATE Inactive TRAMADOL HCL 50 MG TABS 1-2 po TID PRN Pain TRAMADOL HCL 50 MG TABS 179543 TRAMADOL HCL Inactive PIROXICAM 20 MG CAPS 1 cap po qd PRN Pain PIROXICAM 20 MG CAPS 151803 PIROXICAM Inactive MINIPRESS 2 MG CAPS 4 cap po at night MINIPRESS 2 MG CAPS 343518 PRAZOSIN HCL Inactive MIRALAX PACK 1 po qd PRN Constipation MIRALAX PACK 801313 POLYETHYLENE GLYCOL 3350 Inactive METOPROLOL TARTRATE 25 MG ORAL TABS 1/2 tablet twice daily for heart rate and blood pressure METOPROLOL TARTRATE 25 MG ORAL TABS 048261 METOPROLOL TARTRATE Inactive VALIUM 5 MG TAB Take 1-2 tablets daily VALIUM 5 MG TAB 746078 DIAZEPAM Inactive FLAGYL 500 MG TAB 1 tablet by mouth bid FLAGYL 500 MG TAB 193674 METRONIDAZOLE Inactive DICLOFENAC POTASSIUM TABS Take 1 tablet twice a day (pt. is not sure of the dose.) DICLOFENAC POTASSIUM TABS DICLOFENAC POTASSIUM TABS Inactive ZITHROMAX Z-EARNEST 250 MG TABS 2 today and then 1 daily for 4 days ZITHROMAX Z-EARNEST 250 MG TABS 4416107 AZITHROMYCIN Inactive PREDNISONE 20 MG TABS 2 daily for 5 days then 1 daily for 5 days PREDNISONE 20 MG TABS 062903 PREDNISONE Inactive PROAIR HFA 108 (90 BASE) MCG/ACT AERS 2 puffs four times a day as needed 2015 PROAIR HFA 108 (90 BASE) MCG/ACT AERS ALBUTEROL SULFATE Inactive HYDROCODONE-ACETAMINOPHEN 5-325 MG TABS 1 to 2 four times a day as needed for pain use until can be seen by specialist HYDROCODONE- ACETAMINOPHEN 5-325 MG TABS 469875 HYDROCODONE-ACETAMINOPHEN Inactive TESSALON PERLES 100 MG CAP 1 to 2 tablets by mouth 3 times daily as needed for cough TESSALON PERLES 100 MG CAP 847869 BENZONATATE Inactive CHANTIX STARTING MONTH EARNEST 0.5 [...] Pain 2015 DICLOFENAC SODIUM 50 MG TBEC 099322 DICLOFENAC SODIUM Inactive TOPAMAX 50 MG ORAL TABS 1 tab twice daily TOPAMAX 50 MG ORAL TABS 125431 TOPIRAMATE Inactive VIIBRYD 10 MG ORAL TABS Take 1 tablet once a day VIIBRYD 10 MG ORAL TABS VILAZODONE HCL Inactive LEVOFLOXACIN 500 MG ORAL TABS po daily LEVOFLOXACIN 500 MG ORAL TABS 626807 LEVOFLOXACIN Inactive METHYLPREDNISOLONE 4 MG ORAL TABS po daily METHYLPREDNISOLONE 4 MG ORAL TABS 460443 METHYLPREDNISOLONE Inactive OXYCODONE HCL ER 10 MG ORAL T12A 1/2 tab by mouth every 4 hours prn OXYCODONE HCL ER 10 MG ORAL T12A OXYCODONE HCL Inactive FLAGYL 500 MG TAB 1 tablet by mouth bid FLAGYL 500 MG TAB 962358 METRONIDAZOLE Inactive MONISTAT 7 COMBO PACK WOODROW 100 & 2 MG-% (9GM) VAG KIT 1 applicatorful per vagina q pm x 7 MONISTAT 7 COMBO PACK WOODROW 100 & 2 MG-% (9GM) VAG KIT MICONAZOLE NITRATE Inactive BACTRIM DS 800-160 MG TABS 1 twice a day BACTRIM DS 800-160 MG TABS 525473 SULFAMETHOXAZOLE-TRIMETHOPRIM Inactive TRAMADOL HCL 50 MG TABS 1/2-1 tab TID PRN TRAMADOL HCL 50 MG TABS 800505 TRAMADOL HCL Inactive ABILIFY MAINTENA 400 MG IM SUSR 400mg injection every 26 days ABILIFY MAINTENA 400 MG IM SUSR ARIPIPRAZOLE Inactive KLONOPIN 1 MG ORAL TABS 1 tab po TID KLONOPIN 1 MG ORAL TABS 967488 CLONAZEPAM Inactive ADVAIR DISKUS 250-50 MCG/DOSE INH AEPB 1 puff twice a day for asthma ADVAIR DISKUS 250-50 MCG/DOSE INH AEPB FLUTICASONE- SALMETEROL Inactive BENADRYL 25 MG CAP 4 po at bedtime for insomnia BENADRYL 25 MG CAP DIPHENHYDRAMINE HCL Inactive PREDNISONE 20 MG TABS 2 daily for 5 days then 1 daily for 5 days PREDNISONE 20 MG TABS 563920 PREDNISONE Inactive HYDROCODONE-ACETAMINOPHEN 5-325 MG ORAL TABS 1 tab two times a day HYDROCODONE-ACETAMINOPHEN 5-325 MG ORAL TABS 381743 HYDROCODONE-ACETAMINOPHEN Inactive CEFDINIR 300 MG CAPS by mouth twice a day CEFDINIR 300 MG CAPS 369606 CEFDINIR Inactive PREDNISONE 20 MG TAB 2 tabs daily for 3 days, 1 tab daily for 3 days, 1/2 tab daily for 2 days PREDNISONE 20 MG TAB 360402 PREDNISONE Inactive BACTRIM DS 800-160 MG TABS 1 po BID x 7 days BACTRIM DS 800-160 MG TABS 19820521 SULFAMETHOXAZOLE-TRIMETHOPRIM Inactive DIFLUCAN 150 MG TABS 1 pill every other day x 2 doses DIFLUCAN 150 MG TABS 799769 FLUCONAZOLE Inactive BACTRIM DS 800-160 MG TABS 1 pill by mouth twice daily BACTRIM DS 800-160 MG TABS 474469 SULFAMETHOXAZOLE-TRIMETHOPRIM Inactive KEFLEX 500 MG CAP 1 po TID x 10 days KEFLEX 500 MG CAP 889988 CEPHALEXIN Inactive Advance Directives Directive Description Start [...] 369 10^3/MM^3 10*3/mm3 142-424 Lab Report: Chlamydia/GC [id number] - Lab chlamydia DNA probe NOT DETECTED NOT DETECTED Lab Report: Chlamydia/GC APTIMA/[id number] - Microbiology Neisseria gonorrhoeae DNA probe NOT DETECTED NOT DETECTED Lab Report: Comp. Metabolic Panel - Chemistry blood glucose 95 mg/dL 65-110 chloride, serum 105 mmol/L 98-107 potassium, serum 4.0 mmol/L 3.5-5.2 carbon dioxide, venous blood 27.6 mmol/L 21.0-32.0 sodium, serum 142 mmol/L 183-210 5622/06/08 calcium, serum 9.4 mg/dL 8.5-10.1 aspartate aminotransferase (SGOT), serum 28 U/L -37 alanine aminotransferase (SGPT), serum 49 U/L - creatinine, serum 0.75 mg/dL 0.55-1.30 urea nitrogen, blood 8 mg/dL 7-18 sodium, serum 140 mmol/L 098-512 4278/08/08 carbon dioxide, venous blood 33.7 mmol/L 21.0-32.0 potassium, serum 5.0 mmol/L 3.5-5.2 chloride, serum 103 mmol/L 98-107 blood glucose 80 mg/dL 65-110 urea nitrogen, blood 13 mg/dL 7-18 creatinine, serum 0.88 mg/dL 0.55-1.30 alanine aminotransferase (SGPT), serum 54 U/L - aspartate aminotransferase (SGOT), serum 29 U/L -37 [...] leukocyte esterase, urine, by dipstick Trace Negative urobilinogen, urine, semiquantitative (dipstick) 0.2 Normal [...] mg/dL Encounters Code Encounter Date Provider Facility CPT-18122 Level 3 Est. Patient 11:47:37 [employer] Ahmet Carbajal MD [facility] CPT-00104 Level 3 Est. Patient 10:40:11 [employer] Ahmet Carbajal MD [facility] CPT-71412 Level 3 Est. Patient 15:07:06 [employer] Neeraj Collins MD [facility] CPT-11179 Level 4 Est. Patient 14:45:00 [employer] Ahmet Carbajal MD [facility] CPT-35867 Level 3 Est. Patient 13:59:59 CDT Luigi Martínez [facility] CPT-40889 Level 3 Est. Patient 18:18:53 CDT Neeraj Collins MD [facility] CPT-59302 Level 3 Est. Patient 15:50:44 CDT Vishal Hui MD [facility] CPT-84353 Level 3 Est. Patient 11:36:17 CDT Ahmet Carbajal MD [facility] CPT-50305 Level 3 Est. Patient 13:29:16 CDT Vishal Hui MD [facility] CPT-62173 Level 3 Est. Patient 14:27:52 CDT Neeraj Collins MD [facility] CPT-94679 Level 3 Est. Patient 08:56:03 CDT Luigi Martínez [facility] CPT-28639 Level 4 Est. Patient 12:11:48 CDT Fabiola Johnson [facility] CPT-23410 Level 3 New Patient 16:53:37 CDT Albert Caldera MD [facility] CPT-85982 Level 3 Est. Patient 11:25:49 CDT Renzo Thornton DO [facility] CPT-23719 Level 3 Est. Patient 15:22:01 CDT Ahmet Carbajal MD [facility] CPT-59736 Level 4 Est. Patient 09:00:51 [employer] Vishal Hui MD [facility] CPT-18751 Level 3 Est. Patient 11:37:33 [employer] Vishal Hui MD [facility] CPT-95423 Level 3 Est. Patient 08:41:09 [employer] Vishal Hui MD [facility] CPT-66693 Level 4 Est. Patient 10:19:35 [employer] Vishal Hui MD [facility] CPT-21261 Level 3 Est. Patient 13:35:45 CDT Vishal Hui MD [facility] CPT-68536 Level 4 Est. Patient 10:08:37 CDT Vishal Hui MD [facility] CPT-41271 Level 3 Est. Patient 11:22:10 CDT Vishal Hui MD [facility] CPT-89430 Level 3 Est. Patient 11:03:32 CDT Sahara Rodriguez MD [facility] CPT-24535 Level 3 Est. Patient 09:41:35 CDT Vishal Hui MD [facility] CPT-69251 Level 3 Est. Patient 12:00:41 CDT Neeraj Collins MD [facility] CPT-34496 Level 3 Est. Patient 09:16:24 CDT Vishal Hui MD [facility] CPT-99620 Level 4 Est. Patient 13:59:09 CDT Neeraj Collins MD [facility] CPT-70073 Level 3 Est. Patient 15:19:43 CDT Renzo Thornton DO [facility] CPT-47875 Level 3 Est. Patient 18:10:26 CDT Sahara Rodriguez MD [facility]-21160 Level 3 Est. Patient 14:49:50 CDT Vishal Hui MD [facility] CPT-85423 Level 4 Est. Patient 18:41:46 CDT Neeraj Collins MD [facility] CPT-68187 Level 4 Est. Patient 09:18:38 [employer] Vishal Hui MD [facility] CPT-94107 Level 3 Est. Patient 14:43:55 [employer] Vishal Hui MD [facility] CPT-79830 Level 3 Est. Patient 15:26:33 [employer] Sahara Rodriguez MD [facility] CPT-91337 Level 3 Est. Patient 10:32:14 SENIOR ORACLE DBA Vishal Hui MD [facility] CPT-05356 Level 3 Est. Patient 15:12:52 SENIOR ORACLE DBA Vishal Hui MD [facility] CPT-20371 Level 4 Est. Patient 09:19:27 CDT Vishal Hui MD [facility] CPT-40472 Level 3 Est. Patient 15:53:00 CDT Renzo Barajas [facility] CPT-95540 Level 3 Est. Patient 15:50:30 CDT Renzo Thornton [facility] CPT-65890 Level 3 Est. Patient 16:55:24 CDT Vishal Hui MD [facility] Procedures Code Procedure Name Date Entry Date Standard Description CPT-G0439 [facility] Annual Wellness Exam 09:30:58 SENIOR ORACLE DBA CPT-86025 TSH - LAB USE ONLY 08:50:26 SENIOR ORACLE DBA CPT-01576 CBC - LAB USE ONLY 08:50:26 SENIOR ORACLE DBA CPT-47405 Venipuncture Draw Fee 08:50:26 SENIOR ORACLE DBA CPT-49035 Abx/Therapy Injection 17:34:30 SENIOR ORACLE DBA CPT-54867 Nexplanon Removal with Reinsertion 14:09:32 CDT CPT-J7307 Nexplanon (Implant) 14:09:32 CDT CPT-OV Office Visit 14:09:32 CDT CPT-88651 UA w micro - LAB USE ONLY 16:21:13 CDT CPT-35383 Wet Mount - LAB USE ONLY 16:21:13 CDT CPT-38317 First Vx - Ix admin for Medicare patients 14:37:47 CDT CPT-85843 Fluzone Preservative Free Intramuscular Suspension 14:37 :47 CDT CPT-94158 Abx/Therapy Injection 13:54:22 CDT CPT-77030 Abx/Therapy Injection 08:47:09 CDT CPT-33961 Abx/Therapy Injection 13:29:56 CDT CPT-61092 Abx/Therapy Injection 08:36:16 CDT CPT-28956 Wet Mount - LAB USE ONLY 17:44:58 CDT CPT-69416 UA w micro - LAB USE ONLY 17:44:58 CDT CPT-51508 CMP - LAB USE ONLY 17:44:58 CDT CPT-36225 Venipuncture Draw Fee 17:44:58 CDT CPT-29962 Cervical Min 4V - XRAY USE ONLY 09:01:40 CDT CPT-95782 Chest 2V Frontal and Lat - XRAY USE ONLY 11:06:31 CDT CPT-32711 EKG Trac and Interp - XRAY USE ONLY 11:31:43 CDT 08/26 CPT-J3420 Vitamin B12 1000mcg (Cyanocobalamin) 08:10:26 SENIOR ORACLE DBA 04/12 CPT-32104 Abx/Therapy Injection 08:10:26 SENIOR ORACLE DBA CPT-G0438 Initial Annual Wellness Exam 19:01:01 SENIOR ORACLE DBA CPT-J3420 Vitamin B12 1000mcg (Cyanocobalamin) 16:57:46 CDT 08/14 CPT-43740 Recombivax HB Injection Suspension 5 MCG/0.5ML 08:37:50 SENIOR ORACLE DBA CPT-25578 Immunization Single Admin 08:37:50 SENIOR ORACLE DBA CPT-J3420 Vitamin B12 1000mcg (Cyanocobalamin) 08:32:16 SENIOR ORACLE DBA 03/11 CPT-63788 Abx/Therapy Injection 08:32:16 SENIOR ORACLE DBA CPT-57080 Chest 2V Frontal and Lat 11:46:38 SENIOR ORACLE DBA CPT-52496 Venipuncture Draw Fee 09:12:45 SENIOR ORACLE DBA CPT-J3420 Vitamin B12 1000mcg (Cyanocobalamin) 08:50:15 SENIOR ORACLE DBA 02/08 CPT-11042 Abx/Therapy Injection 08:50:15 SENIOR ORACLE DBA CPT-Cryo Cryotherapy 10:19:35 SENIOR ORACLE DBA CPT-000 Give Appropriate Flu Vaccine 09:22:16 CDT CPT-J3420 Vitamin B12 1000mcg (Cyanocobalamin) 19:08:57 CDT 01/11 CPT-85431 Abx/Therapy Injection 19:08:57 CDT CPT-J3420 Vitamin B12 1000mcg (Cyanocobalamin) 08:19:08 CDT 12/11 CPT-19448 Abx/Therapy Injection 08:19:08 CDT CPT-J3420 Vitamin B12 1000mcg (Cyanocobalamin) 14:48:00 CDT 11/09 CPT-90581 Abx/Therapy Injection 14:47:59 CDT CPT-J3420 Vitamin B12 1000mcg (Cyanocobalamin) 08:34:04 CDT 10/09 CPT-62668 Abx/Therapy Injection 08:34:04 CDT CPT-J3420 Vitamin B12 1000mcg (Cyanocobalamin) 09:18:52 CDT 09/11 CPT-59294 Abx/Therapy Injection 09:18:52 CDT CPT-J3420 Vitamin B12 1000mcg (Cyanocobalamin) 08:35:44 CDT 09/04 CPT-00883 Abx/Therapy Injection 08:35:44 CDT CPT-35627 Immunization Single Admin 11:07:16 CDT CPT-29056 Hepatitis B adult IM 11:07:16 CDT CPT-J3420 Vitamin B12 1000mcg (Cyanocobalamin) 11:00:49 CDT 08/28 CPT-J1040 Depo Medrol 80 mg (Methyl Prednisolone Acetate) 11:00: 49 CDT CPT-07622 Abx/Therapy Injection 11:00:49 CDT CPT-J1040 Depo Medrol 80 mg (Methyl Prednisolone Acetate) 09:16: 23 CDT CPT-J3420 Vitamin B12 1000mcg (Cyanocobalamin) 08:27:05 CDT 08/20 CPT-02119 Abx/Therapy Injection 08:27:05 CDT CPT-81352 Recombivax HB Injection Suspension 5 MCG/0.5ML 10:00:41 CDT CPT-04523 Administration single or combination vaccine inc oral 10 :00:41 CDT CPT-06706 Sono transvag pelvis non OB uterus ovaries cervix 16:36: 57 CDT CPT-37221 LS spine comp w obliq 09:50:55 SENIOR ORACLE DBA CPT-87015 Abd compl w upright 09:50:55 SENIOR ORACLE DBA CPT-J1100 Decadron 4mg (Dexamethasone) 15:51:24 SENIOR ORACLE DBA CPT-J1030 Depo Medrol 40 mg (Methyl Prednisolone Acetate) 15:51: 24 SENIOR ORACLE DBA CPT-55727 Abx/Therapy Injection 15:51:24 SENIOR ORACLE DBA CPT-J1100 Decadron 4mg (Dexamethasone) 15:26:33 SENIOR ORACLE DBA CPT-J1030 Depo Medrol 40 mg (Methyl Prednisolone Acetate) 15:26: 33 SENIOR ORACLE DBA CPT-28805 Sono retroperitoneal complete kidneys and bladder 17:15: 30 CDT CPT-72391 Abd compl w upright 16:09:25 CDT CPT-J1100 Decadron 8mg (Dexamethasone) 17:07:57 CDT CPT-79099 Abx/Therapy Injection 17:07:57 CDT CPT-J1100 Decadron 8mg (Dexamethasone) 16:55:24 CDT CPT-39648 Chest 2V Frontal and Lat 16:32:44 CDT
--- OUTSIDE RECORDS SUMMARY | 2016-11-04 23:44 | XMS REPORT ---
Author Author [facility] Medical Staff Organization [facility] Address [address] [place], [place] [address] Phone [phone] Care Team Providers Care Director Plans Name Role Phone DENICE OCHOA MD, PP [phone] DENICE OCHOA MD, PP [phone] Summary purpose TRANSITION OF CARE AUTO GENERATION [...] Relevant diagnostic tests and/or laboratory data RESULTS [id number]:25:00 Discharge Summary DISCHARGE SUMMARY ADMITTING DIAGNOSIS: 1)Seizures. DISCHARGE DIAGNOSIS: 1)Seizures. HISTORY OF PRESENT ILLNESS:This 30-year-old female presented to the clinic today and had four [id number]-[id number] seizures lasting 10 to 40 seconds.Emergency Medical [...] was drawn at that time.At this time, [facility] was contacted to speak to neurology. Spoke with Dr. Norberto Healy who accepted the patient to [facility] to acquire a videoed EEG.Ara agreed to said transfer to [facility] for further evaluation. PHYSICAL EXAMINATION: VITAL SIGNS:Temperature [...] 06/24/2015 12:25:30/06/25/2015 00:15:00 Clinic Code: cc: <START [facility] [address] [place] [address] <END HEADER> Routine Urinalysis [id number]:16:00 Result Normal Range Units Color YELLOW Clarity Clear Specific Randolph 1.020 1.003-1.035 pH 6.0 4.5-8.0 Glucose NEGATIVE Bilirubin NEGATIVE Ketones NEGATIVE Protein NEGATIVE Urobilinogen 0.2 0-0.2 E.U./dL Nitrites NEGATIVE Blood NEGATIVE Leukocytes TRACE WBCs 0-5 RBCs No RBC's Seen. Squamous Epithelial 1+ Bacteria 2+ Therapeutic Drug Monitoring :26:00 Result Normal Range Units Valproic Acid (Depakote) L 26.8 50-100 ug/ml [id number]:20:00 Result Normal Range Units Valproic Acid (Depakote) [...] 9.1 10-20 Estimated GFR 89 >=60 mL/min/1.7 [id number]:20:00 Result Normal Range Units Sodium 143 134-145 [...] % Lymph % H 40.2 20-40 % Dauphin % 8.2 0-10.0 % Eos % 1.9 0-7.0 % Baso % 0.5 0-2 % Neutro # 3.8 1.5-7.5 103/uL Lymph # 3.2 0.9-4.0 103/uL Dauphin # 0.7 0-0.8 103/uL Eos # 0.2 [...] 40-70 % Lymph % 28.6 20-40 % Dauphin % 7.5 0-10.0 % Eos % 1.1 0-7.0 % Baso % 0.5 0-2 % Neutro # 5.3 1.5-7.5 103/uL Lymph # 2.5 0.9-4.0 103/uL Dauphin # 0.6 0-0.8 103/uL Eos # 0.1 0-0.6 103/uL Baso # 0.0 0-0.1 103/uL Body Fluid :16:00 Result Normal Range Units pH 6.0 4.5-8.0 [...] Units Sed Rate 2 0-20 Radiology Results [id number]:26:00 Result Normal Range Units MPV 9.9 7.3-10.4 FL :20:00 Result Normal Range Units MPV H 11.0 7.3-10.4 FL History of procedures No procedures recorded for this patient visit. Functional status Functional Status Finding Observation Time Hearing Prob Loc none :40 Vision Problems yes :40 Vision Correct Dev glasses :40 Ambulation Asst Dev none :40 Range of Motion full :40 Muscle Strength RUE 5 ROM full resist :40 Muscle Strength RLE 5 ROM full resist :40 Muscle Strength LUE 5 ROM full resist :40 Muscle Strength LLE 5 ROM full resist :40 Transfers assist x 1 :40 Ambulation in room :40 Balance unsteady :40 Bathing Assistance minimal :40 [...] headache stiff neck no :40 WBC > 08975 no :40 WBC < 4000 no :40 [...] well :19 Neurological no :19 Psychological yes :19 Physical no :19 Hearing no :19 Electronic Induction Hardener Needed no :19 Sign Language no :19 Emotional no :19 Vision yes :19 Laguage no :19 Financial no :19 Vital signs Type Value Date Respiration Rate 18breaths per minute :28 Pulse 91beats per minute :28 Oxygen Saturation 99% :28 BP Systolic 108mmHg 90-70-306701:28 BP Diastolic 73mmHg 64-64-234619:28 Temperature 98.9F 73-30-671066:28 Height 65inches :40 Weight 297.0LB :40 Social history Type Value Smoking Status FORMER SMOKER Treatment Plan No treatment plan text is available for this visit. 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
--- OUTSIDE RECORDS SUMMARY | 2016-11-04 23:44 | XMS REPORT | Clinical Summary ---
Author Author Admin, E Organization [employer] Address Unknown Phone Unavailable Allergies, Adverse Reactions, [...] q6hr PRN Muscle Spasm/Back Pain TIZANIDINE HCL 42824698760 Active Vishal Hui MD Active CLINDAMYCIN HCL 150 MG CAPS 1 four times a day CLINDAMYCIN HCL 90842915216 No Longer Active Neeraj Collins MD Active KEFLEX 500 MG ORAL CAPS 1 cap QID by mouth CEPHALEXIN 53366934069 No Longer Active Neeraj Collins MD Active DIFLUCAN 150 MG TABS 1 pill every other day x 2 doses FLUCONAZOLE 91762491270 No Longer Active Sahara Rodriguez MD PhD Active MELATONIN 3 MG CAPS 2 po q hs MELATONIN 80918377412 No Longer Active Sahara Rodriguez MD PhD Active MULTIVITAMINS CAPS Take one by mouth daily MULTIPLE VITAMIN 95480537750 No Longer Active Sahara Rodriguez MD PhD Active BACTRIM DS 800-160 MG TAB 1 tab by mouth twice daily TRIMETHOPRIM-SULFAMETHOXAZOLE 50121527975 No Longer Active Sahara Rodriguez MD PhD Active [employer] PROBIOTIC ORAL CHEW 2 daily po PROBIOTIC PRODUCT 37716081198 No Longer Active Sahara Rodriguez MD PhD Active IBUPROFEN 600 MG TAB 1 po TID PRN IBUPROFEN 20748879061 Active Luigi Martínez CERTIFIED NURSE AIDE Active BACTRIM DS 800-160 MG TABS 1 po BID x 7 days SULFAMETHOXAZOLE-TRIMETHOPRIM 49892030934 No Longer Active Vishal Hui MD Active CHANTIX STARTING MONTH EARNEST 0.5 MG X 11 & 1 MG X 42 TABS 0.5mg daily for 3 days , then 0.5mg BID for 4 days, then 1mg BID VARENICLINE TARTRATE 93860020611 No Longer Active TAMARA Gray Active METOPROLOL TARTRATE 50 MG TAB 1 po bid METOPROLOL TARTRATE 78946394484 Active Vishal Hui MD Active TRAZODONE HCL 100 MG TAB take 1 at bedtime TRAZODONE HCL 13472236883 Active Vishal Hui MD Active AMLODIPINE BESYLATE 5 MG TABS 1 tablet by mouth daily AMLODIPINE BESYLATE 53528158628 Active Vishal Hui MD Active VERAPAMIL HCL CR 120 MG TAB CR 1 po bid VERAPAMIL HCL 79677986001 No Longer Active Vishal Hui MD Active METOPROLOL SUCCINATE 50 MG TB24 1 tablet by mouth daily METOPROLOL SUCCINATE 68326554086 No Longer Active Vishal Hui MD Active TRAMADOL HCL 50 MG TABS 1-2 po TID PRN Pain TRAMADOL HCL 66940967256 Active Vishal Hui MD Active SAPHRIS 5 MG SUBL 1 po bid ASENAPINE MALEATE 60247335985 Active Vishal Hui MD Active SAPHRIS 10 MG SUBL 1 tab po bid ASENAPINE MALEATE 00133527181 No Longer Active Vishal Hui MD Active LISINOPRIL 20 MG TABS 1 tab po qd LISINOPRIL 32648719798 No Longer Active Vishal Hui MD Active BENADRYL 25 MG CAP 2 po tid prn anxiety DIPHENHYDRAMINE HCL 94517604972 Active Vishal Hui MD Active LATUDA 80 MG TABS Take one by mouth daily LURASIDONE HCL 70659425542 Active Vishal Hui MD Active LATUDA 20 MG TABS Take one by mouth daily LURASIDONE HCL 93309679189 No Longer Active Vishal Hui MD Active TRAZODONE HCL 50 MG TABS 1/2 tab po qd prn for anxiety TRAZODONE HCL 38132407414 No Longer Active Vishal Hui MD Active PIROXICAM 20 MG CAPS 1 cap po qd PRN Pain PIROXICAM 03517193474 Active Vishal Hui MD Active OMEPRAZOLE 20 MG TBEC 1 po q a.m. 30min prior to first food intake OMEPRAZOLE 94828100906 Active Vishal Hui MD Active RANITIDINE HCL 150 MG CAPS 1 twice a day RANITIDINE HCL 66648929786 Active Vishal Hui MD Active PROZAC 20 MG CAP Take one by mouth daily FLUOXETINE HCL 83479763124 Active Vishal Hui MD Active LINZESS 290 MCG CAPS Take one by mouth daily LINACLOTIDE 45156469993 Active Vishal Hui MD Active SAPHRIS 5 MG SUBL 1 tab po qd ASENAPINE MALEATE 15129278133 No Longer Active Vishal Hui MD Active ZALEPLON 10 MG CAPS 1 cap po every other night ZALEPLON 78799818961 No Longer Active Vishal Hui MD Active LYRICA 50 MG CAPS 1 tab po TID PREGABALIN 27303834079 No Longer Active Vishal Hui MD Active LORATADINE 10 MG TABS 1 tab po qd LORATADINE 50261898325 No Longer Active Vishal Hui MD Active VERAPAMIL HCL ER 180 MG CR-TABS 1 tab po bid VERAPAMIL HCL 30494335331 No Longer Active Vishal Hui MD Active MIRALAX POWD 1 capfull once daily POLYETHYLENE GLYCOL 3350 22636476155 No Longer Active Vishal Hui MD Active PREDNISONE 20 MG TABS 1 tab po qd PREDNISONE 66762802065 No Longer Active Renzo Thornton DO Active LEVOFLOXACIN 500 MG TABS 1 tab po qd LEVOFLOXACIN 41035210903 No Longer Active Renzo Thornton DO Active BUSPIRONE HCL 15 MG TABS 1 tab po TID BUSPIRONE HCL 72411041050 No Longer Active Renzo Thornton DO Active BENZTROPINE MESYLATE 1 MG TABS 1 tab po qd BENZTROPINE MESYLATE 94541975914 No Longer Active Renzo Thornton DO Active ATENOLOL 25 MG TABS 1 tab po qd ATENOLOL 66613599793 No Longer Active Renzo Thornton DO Active ESCITALOPRAM OXALATE 20 MG TABS 1 tab po qd ESCITALOPRAM OXALATE 24410241464 No Longer Active Renzo Thornton DO Active ADVAIR DISKUS 250-50 MCG/DOSE AEPB 1 puff BID FLUTICASONE-SALMETEROL 35238777217 No Longer Active Renzo Thornton DO Active PREDNISONE 20 MG TAB 2 tabs daily for 3 days, 1 tab daily for 3 days, 1/2 tab daily for 2 days PREDNISONE 31357005982 No Longer Active Vishal Hui MD Active CEFDINIR 300 MG CAPS by mouth twice a day CEFDINIR 14835896257 No Longer Active Vishal Hui MD Active LANSOPRAZOLE 30 MG CPDR 1 cap po qd LANSOPRAZOLE 93488116924 No Longer Active Vishal Hui MD Active TOPAMAX 25 MG TABS 1 tab po bid TOPIRAMATE 36224466767 Active Vishal Hui MD Active MINIPRESS 2 MG CAPS 1 cap po at night PRAZOSIN HCL 77568324232 Active Vishal Hui MD Active BACLOFEN 20 MG TABS 1 tab po tid BACLOFEN 90446758415 No Longer Active Vishal Hui MD Active ADVAIR DISKUS 250-50 MCG/DOSE AEPB 1 puff BID ADVAIR DISKUS 250-50 MCG/DOSE AEPB FLUTICASONE-SALMETEROL Inactive ESCITALOPRAM OXALATE 20 MG TABS 1 tab po qd ESCITALOPRAM OXALATE 20 MG TABS 306405 ESCITALOPRAM OXALATE Inactive ATENOLOL 25 MG TABS 1 tab po qd ATENOLOL 25 MG TABS 683841 ATENOLOL Inactive BENZTROPINE MESYLATE 1 MG TABS 1 tab po qd BENZTROPINE MESYLATE 1 MG TABS 232638 BENZTROPINE MESYLATE Inactive BUSPIRONE HCL 15 MG TABS 1 tab po TID BUSPIRONE HCL 15 MG TABS 498592 BUSPIRONE HCL Inactive LEVOFLOXACIN 500 MG TABS 1 tab po qd LEVOFLOXACIN 500 MG TABS 022716 LEVOFLOXACIN Inactive PREDNISONE 20 MG TABS 1 tab po qd PREDNISONE 20 MG TABS 829010 PREDNISONE Inactive MIRALAX POWD 1 capfull once daily MIRALAX POWD 350246 POLYETHYLENE GLYCOL 3350 Inactive VERAPAMIL HCL ER 180 MG CR-TABS 1 tab po bid VERAPAMIL HCL ER 180 MG CR-TABS VERAPAMIL HCL Inactive LORATADINE 10 MG TABS 1 tab po qd LORATADINE 10 MG TABS 108700 LORATADINE Inactive LYRICA 50 MG CAPS 1 tab po TID LYRICA 50 MG CAPS PREGABALIN Inactive ZALEPLON 10 MG CAPS 1 cap po every other night ZALEPLON 10 MG CAPS 284871 ZALEPLON Inactive SAPHRIS 5 MG SUBL 1 tab po qd SAPHRIS 5 MG SUBL ASENAPINE MALEATE Inactive TRAZODONE HCL 50 MG TABS 1/2 tab po qd prn for anxiety TRAZODONE HCL 50 MG TABS 897475 TRAZODONE HCL Inactive LATUDA 20 MG TABS Take one by mouth daily LATUDA 20 MG TABS LURASIDONE HCL Inactive LISINOPRIL 20 MG TABS 1 tab po qd LISINOPRIL 20 MG TABS 496791 LISINOPRIL Inactive SAPHRIS 10 MG SUBL 1 [...] po q hs MELATONIN 3 MG CAPS 912694 MELATONIN Inactive KEFLEX 500 MG ORAL CAPS 1 cap QID by mouth KEFLEX 500 MG ORAL CAPS 279322 CEPHALEXIN Inactive CLINDAMYCIN HCL 150 MG CAPS 1 four times a day CLINDAMYCIN HCL 150 MG CAPS 713447 CLINDAMYCIN HCL Inactive CEFDINIR 300 MG CAPS by mouth twice a day CEFDINIR 300 MG CAPS 525943 CEFDINIR Inactive PREDNISONE 20 MG TAB 2 tabs daily for 3 days, 1 tab daily for 3 days, 1/2 tab daily for 2 days PREDNISONE 20 MG TAB 383162 PREDNISONE Inactive BACTRIM DS 800-160 MG TABS 1 po BID x 7 days BACTRIM DS 800-160 MG TABS SULFAMETHOXAZOLE-TRIMETHOPRIM Inactive DIFLUCAN 150 MG TABS 1 pill every other day x 2 doses DIFLUCAN 150 MG TABS 741021 FLUCONAZOLE Inactive Vital Signs Date Name Value [...] Thyroxine (L), Thyroid Stim ... - Chemistry potassium, serum 4.2 mmol/L 3.5-5.2 chloride, serum [...] 1.20 m[iU]/mL 0.36-3.74 sodium, serum 140 mmol/L 136-145 Lab Report: CBC, Comp. Metabolic Panel, Free [...] Panel - Chemistry sodium, serum 141 mmol/L 236-238 8172 creatinine, serum 0.90 mg/dL 0.60-1.30 alanine aminotransferase [...] Panel - Chemistry sodium, serum 139 mmol/L 706-157 7366/12/31 potassium, serum 4.8 mmol/L 3.5-5.2 chloride, serum 106 mmol/L 98-107 carbon dioxide, venous blood 24.3 mmol/L 21.0-32.0 blood glucose 90 mg/dL 65-110 urea nitrogen, blood 16 mg/dL 7-18 creatinine, serum 1.00 mg/dL 0.60-1.30 alanine aminotransferase (SGPT), serum 41 U/L 12-78 aspartate aminotransferase (SGOT), serum 17 U/L 15-37 calcium, serum 8.6 mg/dL 8.5-10.1 bilirubin, serum, total 0.30 mg/dL 0.00-1.00 cholesterol, serum 108 mg/dL 872-152 5977/12/31 triglyceride, serum, fasting 120 mg/dL 30-200 HDL cholesterol, serum 28 mg/dL 32-96 LDL cholesterol, serum 56 mg/dL 0-130 Lab Report: MICROALBUMIN - Chemistry albumin/creatinine ratio, urine < 30 mg/g mg/g{creat} 0-29 Lab Report: MICROALBUMIN - Lab microalbumin, urine 10 0-19 Lab Report: [facility]AD[facility] W/MICRO, [place]O, [facility] [place] Chemistry human chorionic gonadotropin, urine, qualitative (urine test) Negative Negative protein, total urine random Negative mg/dL Negative RBC, urine, dipstick Negative Negative Lab Report: UADIP W/MICRO, AUTO, [facility] - Urinalysis bilirubin, urine Negative Negative ketones, urine, by test strip Negative Negative glucose, urine, semiquantitative Negative Negative pH, urine, semiquantitative 7.0 5.0-8.5 specific gravity, urine 1.025 1.000-1.030 appearance, urine Clear Clear urine color Yellow Colorless;Lightyellow;Straw;Yellow leukocyte esterase, urine, by dipstick Negative Negative nitrite, urine, semiquantitative Negative Negative urobilinogen, urine, semiquantitative (dipstick) 0.2 Normal Lab Report: [facility] Inga IgG,IgM/31740, HEP Be Antibody/556, RUB ... - Serology rubella antibody, serum, IgG 2.88 Encounters Code Encounter Date Provider Facility [facility]09736 Level 3 Est. Patient 09:16:24 CDT Vishal Hui MD [facility]-97835 Level 4 Est. Patient 13:59:09 CDT Neeraj Collins MD [facility][note 3]80032 Level 3 Est. Patient 15:19:43 CDT Renzo Thornton DO [facility]-31094 Level 3 Est. Patient 18:10:26 CDT Sahara Rodriguez MD [place] [id number] Level 3 Est. Patient 14:49:50 CDT Vishal Hui MD [facility]-97811 Level 4 Est. Patient 18:41:46 CDT Neeraj Collins MD [facility]-10921 Level 4 Est. Patient 09:18:38 NITRIC ACID CONCENTRATOR OPERATOR Vishal Hui MD [facility]-62015 Level 3 Est. Patient 14:43:55 NITRIC ACID CONCENTRATOR OPERATOR Vishal Hui MD [facility]-36254 Level 3 Est. Patient 15:26:33 NITRIC ACID CONCENTRATOR OPERATOR Sahara Rodriguez MD PhD [facility][note 3]27165 Level 3 Est. Patient 10:32:14 NITRIC ACID CONCENTRATOR OPERATOR Vishal Hui MD [facility][note 3]29439 Level 3 Est. Patient 15:12:52 NITRIC ACID CONCENTRATOR OPERATOR Vishal Hui MD [facility]-16201 Level 4 Est. Patient 09:19:27 CDT Vishal Hui MD [facility]-72453 Level 3 Est. Patient 15:53:00 CDT Renzo Thornton DO [facility][note 3]72324 Level 3 Est. Patient 15:50:30 CDT Renzo Thornton DO [facility] CPT-20861 Level 3 Est. Patient 16:55:24 CDT Vishal Hui MD [facility] Procedures Code Procedure Name Date Entry Date Standard Description CPT-J3420 Vitamin B12 1000mcg (Cyanocobalamin) 08:35:44 CDT 09/04 CPT-72745 Abx/Therapy Injection 08:35:44 CDT CPT-18406 Immunization Single Admin 11:07:16 CDT CPT-54401 Hepatitis B adult IM 11:07:16 CDT CPT-J3420 Vitamin B12 1000mcg (Cyanocobalamin) 11:00:49 CDT 08/28 CPT-J1040 Depo Medrol 80 mg (Methyl Prednisolone Acetate) 11:00: 49 CDT CPT-69444 Abx/Therapy Injection 11:00:49 CDT CPT-J1040 Depo Medrol 80 mg (Methyl Prednisolone Acetate) 09:16: 23 CDT CPT-J3420 Vitamin B12 1000mcg (Cyanocobalamin) 08:27:05 CDT 08/20 CPT-70533 Abx/Therapy Injection 08:27:05 CDT CPT-44638 Recombivax HB Injection Suspension 5 MCG/0.5ML 10:00:41 CDT CPT-00482 Administration single or combination vaccine inc oral 10 :00:41 CDT CPT-47008 Sono transvag pelvis non OB uterus ovaries cervix 16:36: 57 CDT CPT-96919 LS spine comp w obliq 09:50:55 NITRIC ACID CONCENTRATOR OPERATOR CPT-50901 Abd compl w upright 09:50:55 NITRIC ACID CONCENTRATOR OPERATOR CPT-J1100 Decadron 4mg (Dexamethasone) 15:51:24 NITRIC ACID CONCENTRATOR OPERATOR CPT-J1030 Depo Medrol 40 mg (Methyl Prednisolone Acetate) 15:51: 24 NITRIC ACID CONCENTRATOR OPERATOR CPT-99994 Abx/Therapy Injection 15:51:24 NITRIC ACID CONCENTRATOR OPERATOR CPT-J1100 Decadron 4mg (Dexamethasone) 15:26:33 NITRIC ACID CONCENTRATOR OPERATOR CPT-J1030 Depo Medrol 40 mg (Methyl Prednisolone Acetate) 15:26: 33 NITRIC ACID CONCENTRATOR OPERATOR CPT-56441 Sono retroperitoneal complete kidneys and bladder 17:15: 30 CDT CPT-80682 Abd compl w upright 16:09:25 CDT CPT-J1100 Decadron 8mg (Dexamethasone) 17:07:57 CDT CPT-03026 Abx/Therapy Injection 17:07:57 CDT CPT-J1100 Decadron 8mg (Dexamethasone) 16:55:24 CDT CPT-37624 Chest 2V Frontal and Lat 16:32:44 CDT
--- OUTSIDE RECORDS SUMMARY | 2016-11-04 23:47 | XMS REPORT | Clinical Summary ---
Author Author Admin, [place] Organization [facility] Address Unknown Phone Unavailable Allergies, Adverse Reactions, [...] Shortness of breath 786.05 Active Fabiola Johnson RUBBER OFF Shortness of breath Nocturnal hypoxia 799.02 Active Fabiola Johnson RUBBER OFF Hypoxemia Neck pain 723.1 Active Luigi Martínez RUBBER OFF Cervicalgia Vaginal discharge 623.5 Active Neeraj Collins [...] SUSR 400mg injection every 28 days ARIPIPRAZOLE 27199710430 Active Silvia Wilian Casey LPN Active FLAGYL 500 MG TAB 1 tablet by mouth bid METRONIDAZOLE 21331557614 Active Olimpia Raida Active FLUTICASONE PROPIONATE 50 MCG/ACT SUSP 2 sprays each nostril daily before bed. FLUTICASONE PROPIONATE 01255998062 Active Fabiola Johnson APRN Active VERAPAMIL HCL ER 120 MG ORAL CR-TABS 1 tab po daily for blood pressure 09/27 VERAPAMIL HCL 86184355102 Active Fabiola Johnson APRN Active ADZENYS XR-ODT 6.3 MG ORAL TBED 1 tab po daily for ADHD AMPHETAMINE 84570023668 Active Fabiola Johnson APRN Active BENADRYL 25 MG CAP 4 po at bedtime for insomnia DIPHENHYDRAMINE HCL 26187867696 Active Fabiola Johnson APRN Active KLONOPIN 1 MG ORAL TABS 1 tab po TID CLONAZEPAM 55195283860 Active Fabiola Johnson APRN Active VALIUM 5 MG TAB Take 1-2 tablets daily DIAZEPAM 86499243954 No Longer Active Fabiola Johnson APRN Active METOPROLOL TARTRATE 25 MG ORAL TABS 1/2 tablet twice daily for heart rate and blood pressure METOPROLOL TARTRATE 52319282584 No Longer Active Fabiola Johnson APRN Active MIRALAX ORAL POWD 17GMS DAILY IN WATER POLYETHYLENE GLYCOL 3350 87717596876 Active Vishal Hui MD Active VIIBRYD 10 MG ORAL TABS Take 1 tablet once a day VILAZODONE HCL 02799703222 Active Ahmet Carbajal MD Active DICLOFENAC POTASSIUM TABS Take 1 tablet twice a day (pt. is not sure of the dose.) DICLOFENAC POTASSIUM TABS 57071679810 Active Ahmet Carbajal MD Active MIRALAX PACK 1 po qd PRN Constipation POLYETHYLENE GLYCOL 3350 26651185106 No Longer Active Ahmet Carbajal MD Active MINIPRESS 2 MG CAPS 4 cap po at night PRAZOSIN HCL 18609093947 No Longer Active Ahmet Carbajal MD Active PIROXICAM 20 MG CAPS 1 cap po qd PRN Pain PIROXICAM 32795446463 No Longer Active Ahmet Carbajal MD Active TRAMADOL HCL 50 MG TABS 1-2 po TID PRN Pain TRAMADOL HCL 62273712894 No Longer Active Ahmet Carbajal MD Active METOPROLOL TARTRATE 50 MG TAB 1 po bid METOPROLOL TARTRATE 26670081709 No Longer Active Ahmet Carbajal MD Active ABILIFY 15 MG ORAL TABS 1 tab daily ARIPIPRAZOLE 79943415859 No Longer Active Ahmet Carbajal MD Active PROZAC 20 MG ORAL CAPS 1 tab daily FLUOXETINE HCL 08186508583 No Longer Active Ahmet Carbajal MD Active AMBIEN 5 MG ORAL TABS 1 tab at bedtime ZOLPIDEM TARTRATE 31926224111 No Longer Active Ahmet Carbajal MD Active PREDNISONE 20 MG TAB 2 tabs daily for 4 days, 1 tab daily for 4 days, 1/2 tab daily for 4 days PREDNISONE 75898917752 No Longer Active Ahmet Carbajal MD Active KEFLEX 500 MG CAP 1 po TID x 10 days CEPHALEXIN 81906240896 No Longer Active Vishal Hui MD Active IMITREX 50 MG ORAL TABS 1/2 tab every 6 hours prn SUMATRIPTAN SUCCINATE 90368351497 Active Luigi Martínez RUBBER OFF Active TOPAMAX 50 MG ORAL TABS 1 tab twice daily TOPIRAMATE 36768221046 Active Vishal Hui MD Active SAPHRIS 5 MG SUBL 1 po bid ASENAPINE MALEATE 44491297547 No Longer Active Luigi Martínez RUBBER OFF Active LATUDA 80 MG TABS Take one by mouth daily LURASIDONE HCL 78715968357 No Longer Active Luigi Martínez APRN Active AMLODIPINE BESYLATE 5 MG TABS 1 tablet by mouth daily AMLODIPINE BESYLATE 60510901131 No Longer Active Luigi Martínez APRN Active AMITRIPTYLINE HCL 100 MG TAB one at hs AMITRIPTYLINE HCL 90103386783 No Longer Active Vishal Hui MD Active TRAZODONE HCL 100 MG TAB take 1 at bedtime TRAZODONE HCL 00456989435 No Longer Active Vishal Hui MD Active VYVANSE 40 MG CAPS 1 daily, LISDEXAMFETAMINE DIMESYLATE 36682724207 No Longer Active Vishal Hui MD Active IBUPROFEN 600 MG TAB 1 po TID PRN IBUPROFEN 42616131650 No Longer Active Vishal Hui MD Active PROZAC 20 MG CAP Take one by mouth daily FLUOXETINE HCL 29925354466 No Longer Active Vishal Hui MD Active ZOFRAN 4 MG TABS 1 po q6hr PRN Nausea ONDANSETRON HCL Active Vishal Hui MD Active BACTRIM DS 800-160 MG TABS 1 pill by mouth twice daily SULFAMETHOXAZOLE-TRIMETHOPRIM 97872672025 No Longer Active Sahara Rodriguez MD PhD Active DIFLUCAN 150 MG TAB 1 tablet by mouth daily FLUCONAZOLE 53861267309 No Longer Active Vishal Hui MD Active TIZANIDINE HCL 4 MG TABS 1 po q6hr PRN Muscle Spasm/Back Pain TIZANIDINE HCL 72072465299 Active Vishal Hui MD Active CLINDAMYCIN HCL 150 MG CAPS 1 four times a day CLINDAMYCIN HCL 70916339009 No Longer Active Neeraj Collins MD Active KEFLEX 500 MG ORAL CAPS 1 cap QID by mouth CEPHALEXIN 72906440633 No Longer Active Neeraj Collins MD Active DIFLUCAN 150 MG TABS 1 pill every other day x 2 doses FLUCONAZOLE 46362712896 No Longer Active Sahara Rodriguez MD PhD Active MELATONIN 3 MG CAPS 2 po q hs MELATONIN 79578173893 No Longer Active Sahara Rodriguez MD PhD Active MULTIVITAMINS CAPS Take one by mouth daily MULTIPLE VITAMIN 35374264658 No Longer Active Sahara Rodriguez MD PhD Active BACTRIM DS 800-160 MG TAB 1 tab by mouth twice daily TRIMETHOPRIM-SULFAMETHOXAZOLE 76713982891 No Longer Active Sahara Rodriguez MD PhD Active [facility] PROBIOTIC ORAL CHEW 2 daily po PROBIOTIC PRODUCT 29087476836 No Longer Active Sahara Rodriguez MD PhD Active BACTRIM DS 800-160 MG TABS 1 po BID x 7 days SULFAMETHOXAZOLE-TRIMETHOPRIM 43401460128 No Longer Active Vishal Hui MD Active CHANTIX STARTING MONTH EARNEST 0.5 MG X 11 & 1 MG X 42 TABS 0.5mg daily for 3 days , then 0.5mg BID for 4 days, then 1mg BID VARENICLINE TARTRATE 89827784878 No Longer Active TAMARA Gray Active VERAPAMIL HCL CR 120 MG TAB CR 1 po bid VERAPAMIL HCL 47410725246 No Longer Active Vishal Hui MD Active METOPROLOL SUCCINATE 50 MG TB24 1 tablet by mouth daily METOPROLOL SUCCINATE 58897809806 No Longer Active Vishal Hui MD Active SAPHRIS 10 MG SUBL 1 tab po bid ASENAPINE MALEATE 38681116805 No Longer Active Vishal Hui MD Active LISINOPRIL 20 MG TABS 1 tab po qd LISINOPRIL 00216978240 No Longer Active Vishal Hui MD Active LATUDA 20 MG TABS Take one by mouth daily LURASIDONE HCL 58821802236 No Longer Active Vishal Hui MD Active TRAZODONE HCL 50 MG TABS 1/2 tab po qd prn for anxiety TRAZODONE HCL 36915583595 No Longer Active Vishal Hui MD Active OMEPRAZOLE 20 MG TBEC 1 po q a.m. 30min prior to first food intake OMEPRAZOLE 96002556133 Active Vishal Hui MD Active RANITIDINE HCL 150 MG CAPS 1 twice a day RANITIDINE HCL 57547279773 Active Jillina Frazell RUBBER OFF Active LINZESS 290 MCG CAPS Take one by mouth daily LINACLOTIDE 26830155639 No Longer Active Vishal Hui MD Active SAPHRIS 5 MG SUBL 1 tab po qd ASENAPINE MALEATE 70951577302 No Longer Active Vishal Hui MD Active ZALEPLON 10 MG CAPS 1 cap po every other night ZALEPLON 87413386556 No Longer Active Vishal Hui MD Active LYRICA 50 MG CAPS 1 tab po TID PREGABALIN 59672182440 No Longer Active Vishal Hui MD Active LORATADINE 10 MG TABS 1 tab po qd LORATADINE 00688187952 No Longer Active Vishal Hui MD Active VERAPAMIL HCL ER 180 MG CR-TABS 1 tab po bid VERAPAMIL HCL 21448415505 No Longer Active Vishal Hui MD Active MIRALAX POWD 1 capfull once daily POLYETHYLENE GLYCOL 3350 60230407797 No Longer Active Vishal Hui MD Active PREDNISONE 20 MG TABS 1 tab po qd PREDNISONE 58564655757 No Longer Active Renzo Thornton DO Active LEVOFLOXACIN 500 MG TABS 1 tab po qd LEVOFLOXACIN 99390767562 No Longer Active Renzo Thornton DO Active BUSPIRONE HCL 15 MG TABS 1 tab po TID BUSPIRONE HCL 75597087603 No Longer Active Renzo Thornton DO Active BENZTROPINE MESYLATE 1 MG TABS 1 tab po qd BENZTROPINE MESYLATE 48767639235 No Longer Active Renzo Thornton DO Active ATENOLOL 25 MG TABS 1 tab po qd ATENOLOL 01233851397 No Longer Active Renzo Thornton DO Active ESCITALOPRAM OXALATE 20 MG TABS 1 tab po qd ESCITALOPRAM OXALATE 83050214128 No Longer Active Renzo Thornton DO Active ADVAIR DISKUS 250-50 MCG/DOSE AEPB 1 puff BID FLUTICASONE-SALMETEROL 57183307510 No Longer Active Renzo Thornton DO Active PREDNISONE 20 MG TAB 2 tabs daily for 3 days, 1 tab daily for 3 days, 1/2 tab daily for 2 days PREDNISONE 40232912958 No Longer Active Vishal Hui MD Active CEFDINIR 300 MG CAPS by mouth twice a day CEFDINIR 76052208424 No Longer Active Vishal Hui MD Active LANSOPRAZOLE 30 MG CPDR 1 cap po qd LANSOPRAZOLE 26465141040 No Longer Active Vishal Hui MD Active BACLOFEN 20 MG TABS 1 tab po tid BACLOFEN 42427770900 No Longer Active Vishal Hui MD Active ADVAIR DISKUS 250-50 MCG/DOSE AEPB 1 puff BID ADVAIR DISKUS 250-50 MCG/DOSE AEPB FLUTICASONE-SALMETEROL Inactive ESCITALOPRAM OXALATE 20 MG TABS 1 tab po qd ESCITALOPRAM OXALATE 20 MG TABS 736735 ESCITALOPRAM OXALATE Inactive ATENOLOL 25 MG TABS 1 tab po qd ATENOLOL 25 MG TABS 424612 ATENOLOL Inactive BENZTROPINE MESYLATE 1 MG TABS 1 tab po qd BENZTROPINE MESYLATE 1 MG TABS 506944 BENZTROPINE MESYLATE Inactive BUSPIRONE HCL 15 MG TABS 1 tab po TID BUSPIRONE HCL 15 MG TABS 707382 BUSPIRONE HCL Inactive LEVOFLOXACIN 500 MG TABS 1 tab po qd LEVOFLOXACIN 500 MG TABS 252923 LEVOFLOXACIN Inactive PREDNISONE 20 MG TABS 1 tab po qd PREDNISONE 20 MG TABS 716430 PREDNISONE Inactive MIRALAX POWD 1 capfull once daily MIRALAX POWD 231943 POLYETHYLENE GLYCOL 3350 Inactive VERAPAMIL HCL ER 180 MG CR-TABS 1 tab po bid VERAPAMIL HCL ER 180 MG CR-TABS VERAPAMIL HCL Inactive LORATADINE 10 MG TABS 1 tab po qd LORATADINE 10 MG TABS 766447 LORATADINE Inactive LYRICA 50 MG CAPS 1 tab po TID LYRICA 50 MG CAPS PREGABALIN Inactive ZALEPLON 10 MG CAPS 1 cap po every other night ZALEPLON 10 MG CAPS 674371 ZALEPLON Inactive SAPHRIS 5 MG SUBL 1 tab po qd SAPHRIS 5 MG SUBL ASENAPINE MALEATE Inactive TRAZODONE HCL 50 MG TABS 1/2 tab po qd prn for anxiety TRAZODONE HCL 50 MG TABS 350325 TRAZODONE HCL Inactive LATUDA 20 MG TABS Take one by mouth daily LATUDA 20 MG TABS LURASIDONE HCL Inactive LISINOPRIL 20 MG TABS 1 tab po qd LISINOPRIL 20 MG TABS 688007 LISINOPRIL Inactive SAPHRIS 10 MG SUBL 1 [...] twice daily BACTRIM DS 800-160 MG TAB 918146 TRIMETHOPRIM-SULFAMETHOXAZOLE Inactive MULTIVITAMINS CAPS Take one by mouth daily MULTIVITAMINS CAPS MULTIPLE VITAMIN Inactive MELATONIN 3 MG CAPS 2 po q hs MELATONIN 3 MG CAPS 105071 MELATONIN Inactive KEFLEX 500 MG ORAL CAPS 1 cap QID by mouth KEFLEX 500 MG ORAL CAPS 771245 CEPHALEXIN Inactive CLINDAMYCIN HCL 150 MG CAPS 1 four times a day CLINDAMYCIN HCL 150 MG CAPS 754487 CLINDAMYCIN HCL Inactive DIFLUCAN 150 MG TAB 1 tablet by mouth daily DIFLUCAN 150 MG TAB 965383 FLUCONAZOLE Inactive PROZAC 20 MG CAP Take one by mouth daily PROZAC 20 MG CAP 073474 FLUOXETINE HCL Inactive IBUPROFEN 600 MG TAB 1 po TID PRN IBUPROFEN 600 MG TAB 279274 IBUPROFEN Inactive VYVANSE 40 MG CAPS 1 daily, VYVANSE 40 MG CAPS LISDEXAMFETAMINE DIMESYLATE Inactive TRAZODONE HCL 100 MG TAB take 1 at bedtime TRAZODONE HCL 100 MG TAB 006808 TRAZODONE HCL Inactive AMITRIPTYLINE HCL 100 MG TAB one at hs AMITRIPTYLINE HCL 100 MG TAB 406920 AMITRIPTYLINE HCL Inactive AMLODIPINE BESYLATE 5 MG TABS 1 tablet by mouth daily AMLODIPINE BESYLATE 5 MG TABS 320494 AMLODIPINE BESYLATE Inactive LATUDA 80 MG TABS Take one by mouth daily LATUDA 80 MG TABS LURASIDONE HCL Inactive SAPHRIS 5 MG SUBL 1 po bid SAPHRIS 5 MG SUBL ASENAPINE MALEATE Inactive PREDNISONE 20 MG TAB 2 tabs daily for 4 days, 1 tab daily for 4 days, 1/2 tab daily for 4 days PREDNISONE 20 MG TAB 278361 PREDNISONE Inactive AMBIEN 5 MG ORAL TABS 1 tab at bedtime AMBIEN 5 MG ORAL TABS 864186 ZOLPIDEM TARTRATE Inactive PROZAC 20 MG ORAL CAPS 1 tab daily PROZAC 20 MG ORAL CAPS 924587 FLUOXETINE HCL Inactive ABILIFY 15 MG ORAL TABS 1 tab daily ABILIFY 15 MG ORAL TABS 164570 ARIPIPRAZOLE Inactive METOPROLOL TARTRATE 50 MG TAB 1 po bid METOPROLOL TARTRATE 50 MG TAB 296047 METOPROLOL TARTRATE Inactive TRAMADOL HCL 50 MG TABS 1-2 po TID PRN Pain TRAMADOL HCL 50 MG TABS 285770 TRAMADOL HCL Inactive PIROXICAM 20 MG CAPS 1 cap po qd PRN Pain PIROXICAM 20 MG CAPS 452755 PIROXICAM Inactive MINIPRESS 2 MG CAPS 4 cap po at night MINIPRESS 2 MG CAPS 543169 PRAZOSIN HCL Inactive MIRALAX PACK 1 po qd PRN Constipation MIRALAX PACK 889650 POLYETHYLENE GLYCOL 3350 Inactive METOPROLOL TARTRATE 25 MG ORAL TABS 1/2 tablet twice daily for heart rate and blood pressure METOPROLOL TARTRATE 25 MG ORAL TABS 072507 METOPROLOL TARTRATE Inactive VALIUM 5 MG TAB Take 1-2 tablets daily VALIUM 5 MG TAB 450028 DIAZEPAM Inactive CEFDINIR 300 MG CAPS by mouth twice a day CEFDINIR 300 MG CAPS 365604 CEFDINIR Inactive PREDNISONE 20 MG TAB 2 tabs daily for 3 days, 1 tab daily for 3 days, 1/2 tab daily for 2 days PREDNISONE 20 MG TAB 785752 PREDNISONE Inactive BACTRIM DS 800-160 MG TABS 1 po BID x 7 days BACTRIM DS 800-160 MG TABS 19820521 SULFAMETHOXAZOLE-TRIMETHOPRIM Inactive DIFLUCAN 150 MG TABS 1 pill every other day x 2 doses DIFLUCAN 150 MG TABS 003006 FLUCONAZOLE Inactive BACTRIM DS 800-160 MG TABS 1 pill by mouth twice daily BACTRIM DS 800-160 MG TABS 19820521 SULFAMETHOXAZOLE-TRIMETHOPRIM Inactive KEFLEX 500 MG CAP 1 po TID x 10 days KEFLEX 500 MG CAP 844080 CEPHALEXIN Inactive Advance Directives Directive Description Start [...] % 11.6-14.8 platelet count 394 10^3/MM^3 10*3/mm3 336-323 0714/01/11 leukocyte count, blood 13.8 10^3/MM^3 10*3/mm3 4.6-10.2 [...] Panel - Chemistry sodium, serum 139 mmol/L 384-319 7250/12/03 carbon dioxide, venous blood 28.5 mmol/L 21.0-32.0 [...] 5.5 % 4.3-6.0 cholesterol, serum 159 mg/dL 450-888 8780/12/03 triglyceride, serum, fasting 118 mg/dL 30-200 HDL [...] Panel - Chemistry sodium, serum 139 mmol/L 166-371 6142/12/22 carbon dioxide, venous blood 26.8 mmol/L 21.0-32.0 potassium, serum 4.2 mmol/L 3.5-5.2 chloride, serum 103 mmol/L 98-107 blood glucose 115 mg/dL 65-110 urea nitrogen, blood 20 mg/dL 7-18 creatinine, serum 0.90 mg/dL 0.55-1.30 alanine aminotransferase (SGPT), serum 38 U/L aspartate aminotransferase (SGOT), serum 19 U/L 15-37 calcium, serum 8.6 mg/dL 8.5-10.1 bilirubin, serum, total 0.30 mg/dL 0.00-1.00 sodium, serum 139 mmol/L 543-524 0512/01/11 carbon dioxide, venous blood 26.6 mmol/L 21.0-32.0 potassium, serum 4.1 mmol/L 3.5-5.2 chloride, serum 100 mmol/L 98-107 blood glucose 86 mg/dL 65-110 urea nitrogen, blood 16 mg/dL 7-18 creatinine, serum 1.00 mg/dL 0.55-1.30 alanine aminotransferase (SGPT), serum 48 U/L -78 aspartate aminotransferase (SGOT), serum 17 U/L 15-37 calcium, serum 9.1 mg/dL 8.5-10.1 bilirubin, serum, total 0.40 mg/dL 0.00-1.00 sodium, serum 142 mmol/L 535-973 3470/06/08 carbon dioxide, venous blood 27.6 mmol/L 21.0-32.0 potassium, serum 4.0 mmol/L 3.5-5.2 chloride, serum 105 mmol/L 98-107 blood glucose 95 mg/dL 65-110 urea nitrogen, blood 8 mg/dL 7-18 creatinine, serum 0.75 mg/dL 0.55-1.30 alanine aminotransferase (SGPT), serum 49 U/L -78 aspartate aminotransferase (SGOT), serum 28 U/L 15-37 calcium, serum 9.4 mg/dL 8.5-10.1 bilirubin, serum, total 0.30 mg/dL 0.00-1.00 sodium, serum 140 mmol/L 356-944 9335/08/08 carbon dioxide, venous blood 33.7 mmol/L 21.0-32.0 [...] Rate - Chemistry sodium, serum 139 mmol/L 515-258 4696/12/11 carbon dioxide, venous blood 25.4 mmol/L 21.0-32.0 [...] mg/dL Encounters Code Encounter Date Provider Facility CPT-72708 Level 3 Est. Patient 14:27:52 CDT Neeraj Collins MD [facility] CPT-49546 Level 3 Est. Patient 08:56:03 CDT Luigi Martínez [facility] CPT-90990 Level 4 Est. Patient 12:11:48 CDT Fabiola Johnson [facility] CPT-37525 Level 3 New Patient 16:53:37 CDT Albert Caldera MD [facility] CPT-91744 Level 3 Est. Patient 11:25:49 CDT Renzo Thornton DO [facility] CPT-74888 Level 3 Est. Patient 15:22:01 CDT Ahmet Carbajal MD [facility] CPT-61106 Level 4 Est. Patient 09:00:51 INSTRUCTIONAL MATERIAL DIRECTOR Vishal Hui MD [facility] CPT-53817 Level 3 Est. Patient 11:37:33 INSTRUCTIONAL MATERIAL DIRECTOR Vishal Hui MD [facility] CPT-85376 Level 3 Est. Patient 08:41:09 INSTRUCTIONAL MATERIAL DIRECTOR Vishal Hui MD [facility] CPT-99164 Level 4 Est. Patient 10:19:35 INSTRUCTIONAL MATERIAL DIRECTOR Vishal Hui MD [facility] CPT-06742 Level 3 Est. Patient 13:35:45 CDT Vishal Hui MD [facility] CPT-57117 Level 4 Est. Patient 10:08:37 CDT Vishal Hui MD [facility] CPT-87934 Level 3 Est. Patient 11:22:10 CDT Vishal Hui MD [facility] CPT-98637 Level 3 Est. Patient 11:03:32 CDT Sahara Rodriguez MD PhD [facility] CPT-93456 Level 3 Est. Patient 09:41:35 CDT Vishal Hui MD [facility] CPT-08450 Level 3 Est. Patient 12:00:41 CDT Neeraj Collins MD [facility] CPT-19607 Level 3 Est. Patient 09:16:24 CDT Vishal Hui MD [facility] CPT-44193 Level 4 Est. Patient 13:59:09 CDT Neeraj Collins MD [facility] CPT-83879 Level 3 Est. Patient 15:19:43 CDT Renzo Thronton DO [facility] CPT-53187 Level 3 Est. Patient 18:10:26 CDT Sahara Rodriguez MD [facility]-79932 Level 3 Est. Patient 14:49:50 CDT Vishal Hui MD [facility] CPT-05481 Level 4 Est. Patient 18:41:46 CDT Neeraj Collins MD [facility] CPT-35474 Level 4 Est. Patient 09:18:38 INSTRUCTIONAL MATERIAL DIRECTOR Vishal Hui MD [facility] CPT-83833 Level 3 Est. Patient 14:43:55 INSTRUCTIONAL MATERIAL DIRECTOR Vishal Hui MD [facility] CPT-84201 Level 3 Est. Patient 15:26:33 INSTRUCTIONAL MATERIAL DIRECTOR Sahara Rodriguez MD PhD [facility] CPT-54840 Level 3 Est. Patient 10:32:14 INSTRUCTIONAL MATERIAL DIRECTOR Vishal Hui MD [facility] CPT-68076 Level 3 Est. Patient 15:12:52 INSTRUCTIONAL MATERIAL DIRECTOR Vishal Hui MD [facility] CPT-52705 Level 4 Est. Patient 09:19:27 CDT Vishal Hui MD [facility] CPT-66192 Level 3 Est. Patient 15:53:00 CDT Renzo Thornton [facility] CPT-94474 Level 3 Est. Patient 15:50:30 CDT Renzo Thornton [facility] CPT-80278 Level 3 Est. Patient 16:55:24 CDT Vishal Hui MD [facility] Procedures Code Procedure Name Date Entry Date Standard Description CPT-26717 Abx/Therapy Injection 13:29:56 CDT CPT-31747 Abx/Therapy Injection 08:36:16 CDT CPT-03440 Wet Mount - LAB USE ONLY 17:44:58 CDT CPT-47952 UA w micro - LAB USE ONLY 17:44:58 CDT CPT-77752 CMP - LAB USE ONLY 17:44:58 CDT CPT-58968 Venipuncture Draw Fee 17:44:58 CDT CPT-18195 Cervical Min 4V - XRAY USE ONLY 09:01:40 CDT CPT-31517 Chest 2V Frontal and Lat - XRAY USE ONLY 11:06:31 CDT CPT-14871 EKG Trac and Interp - XRAY USE ONLY 11:31:43 CDT 08/26 CPT-J3420 Vitamin B12 1000mcg (Cyanocobalamin) 08:10:26 INSTRUCTIONAL MATERIAL DIRECTOR 04/12 CPT-73220 Abx/Therapy Injection 08:10:26 INSTRUCTIONAL MATERIAL DIRECTOR CPT-G0438 Initial Annual Wellness Exam 19:01:01 INSTRUCTIONAL MATERIAL DIRECTOR CPT-J3420 Vitamin B12 1000mcg (Cyanocobalamin) 16:57:46 CDT 08/14 CPT-92619 Recombivax HB Injection Suspension 5 MCG/0.5ML 08:37:50 INSTRUCTIONAL MATERIAL DIRECTOR CPT-29337 Immunization Single Admin 08:37:50 INSTRUCTIONAL MATERIAL DIRECTOR CPT-J3420 Vitamin B12 1000mcg (Cyanocobalamin) 08:32:16 INSTRUCTIONAL MATERIAL DIRECTOR 03/11 CPT-12824 Abx/Therapy Injection 08:32:16 INSTRUCTIONAL MATERIAL DIRECTOR CPT-99657 Chest 2V Frontal and Lat 11:46:38 INSTRUCTIONAL MATERIAL DIRECTOR CPT-67520 Venipuncture Draw Fee 09:12:45 INSTRUCTIONAL MATERIAL DIRECTOR CPT-J3420 Vitamin B12 1000mcg (Cyanocobalamin) 08:50:15 INSTRUCTIONAL MATERIAL DIRECTOR 02/08 CPT-27083 Abx/Therapy Injection 08:50:15 INSTRUCTIONAL MATERIAL DIRECTOR CPT-Cryo Cryotherapy 10:19:35 INSTRUCTIONAL MATERIAL DIRECTOR CPT-000 Give Appropriate Flu Vaccine 09:22:16 CDT CPT-J3420 Vitamin B12 1000mcg (Cyanocobalamin) 19:08:57 CDT 01/11 CPT-82289 Abx/Therapy Injection 19:08:57 CDT CPT-J3420 Vitamin B12 1000mcg (Cyanocobalamin) 08:19:08 CDT 12/11 CPT-17930 Abx/Therapy Injection 08:19:08 CDT CPT-J3420 Vitamin B12 1000mcg (Cyanocobalamin) 14:48:00 CDT 11/09 CPT-61474 Abx/Therapy Injection 14:47:59 CDT CPT-J3420 Vitamin B12 1000mcg (Cyanocobalamin) 08:34:04 CDT 10/09 CPT-71987 Abx/Therapy Injection 08:34:04 CDT CPT-J3420 Vitamin B12 1000mcg (Cyanocobalamin) 09:18:52 CDT 09/11 CPT-16900 Abx/Therapy Injection 09:18:52 CDT CPT-J3420 Vitamin B12 1000mcg (Cyanocobalamin) 08:35:44 CDT 09/04 CPT-65804 Abx/Therapy Injection 08:35:44 CDT CPT-15340 Immunization Single Admin 11:07:16 CDT CPT-24278 Hepatitis B adult IM 11:07:16 CDT CPT-J3420 Vitamin B12 1000mcg (Cyanocobalamin) 11:00:49 CDT 08/28 CPT-J1040 Depo Medrol 80 mg (Methyl Prednisolone Acetate) 11:00: 49 CDT CPT-68066 Abx/Therapy Injection 11:00:49 CDT CPT-J1040 Depo Medrol 80 mg (Methyl Prednisolone Acetate) 09:16: 23 CDT CPT-J3420 Vitamin B12 1000mcg (Cyanocobalamin) 08:27:05 CDT 08/20 CPT-48007 Abx/Therapy Injection 08:27:05 CDT CPT-70867 Recombivax HB Injection Suspension 5 MCG/0.5ML 10:00:41 CDT CPT-92061 Administration single or combination vaccine inc oral 10 :00:41 CDT CPT-06546 Sono transvag pelvis non OB uterus ovaries cervix 16:36: 57 CDT CPT-30956 LS spine comp w obliq 09:50:55 INSTRUCTIONAL MATERIAL DIRECTOR CPT-12470 Abd compl w upright 09:50:55 INSTRUCTIONAL MATERIAL DIRECTOR CPT-J1100 Decadron 4mg (Dexamethasone) 15:51:24 INSTRUCTIONAL MATERIAL DIRECTOR CPT-J1030 Depo Medrol 40 mg (Methyl Prednisolone Acetate) 15:51: 24 INSTRUCTIONAL MATERIAL DIRECTOR CPT-20931 Abx/Therapy Injection 15:51:24 INSTRUCTIONAL MATERIAL DIRECTOR CPT-J1100 Decadron 4mg (Dexamethasone) 15:26:33 INSTRUCTIONAL MATERIAL DIRECTOR CPT-J1030 Depo Medrol 40 mg (Methyl Prednisolone Acetate) 15:26: 33 INSTRUCTIONAL MATERIAL DIRECTOR CPT-42426 Sono retroperitoneal complete kidneys and bladder 17:15: 30 CDT CPT-66379 Abd compl w upright 16:09:25 CDT CPT-J1100 Decadron 8mg (Dexamethasone) 17:07:57 CDT CPT-90768 Abx/Therapy Injection 17:07:57 CDT CPT-J1100 Decadron 8mg (Dexamethasone) 16:55:24 CDT CPT-22979 Chest 2V Frontal and Lat 16:32:44 CDT
--- OUTSIDE RECORDS SUMMARY | 2016-11-04 23:47 | XMS REPORT ---
Author [facility] Medical Staff Organization [facility] Address [address] [place], [place] [address] Phone [phone] Care Team Providers Care Hvac Journeyman Name Role Phone TINO ABRAMS MD PP [phone] Summary purpose TRANSITION OF CARE AUTO GENERATION [...] tests and/or laboratory data RESULTS Routine Urinalysis 71-28-733653:38:00 Result Normal Range Units Color YELLOW Clarity Cloudy Specific [place] 1.025 pH 5.5 4.5-8.0 Glucose NEGATIVE Bilirubin 1+ Ketones TRACE Protein 2+ Urobilinogen 0.2 0-0.2 E.U./dL Nitrites POSITIVE Blood 3+ Leukocytes 1+ WBCs Too numerous to count RBCs Too numerous to count Squamous Epithelial 1+ Bacteria 1+ Routine Cultures 50-15-368123:26:00 Urine Culture Plate Date and Time 10/04/2014 13:26 SourceURINE CULTURE REPORT 50,000 colonies/ml Gram Negative Rods ID & Sensitivity to follow Release Date/Time: 10/05/2014 07:38 ORGID #1:50,000 colonies/ml ESCHERICHIA COLI Release Date/Time: 10/06/2014 07:59 Sensitivity #1: ESCCOL AMPICILLIN <=8S AMOX CLAV<=8/4 S AZTREONAM<=8S CEFTRIAXONE<=8S CEFTAZIDIME<=1S CEFOTAXIME <=2S CEFOXITIN<=8S CEFAZOLIN<=8S CIPROFLOXACIN<=1S CEFEPIME <=8S CEFUROXIME <=4S ERTAPENEM<=2S NITROFURANTOIN <=32 S GENTAMICIN <=4S AMPICILLIN SULBACTAM <=8/4 S IMIPENEM <=4S LEVOFLOXACIN <=2S MEROPENEM<=4S TRIMETHSULFA <=2/38S TETRACYCLINE <=4S PIPTAZO<=16 S Body Fluid :38:00 Result Normal Range Units pH 5.5 4.5-8.0 History of procedures No procedures recorded for this patient visit. Functional status Functional Status Finding Observation Time Ambulation Asst Dev none 57-94-701134:05 Abdomen Appearance round 50-53-100710:05 Abdomen soft 26-54-283026:05 Bowel Sounds present 17-84-536149:05 Vick no 80-07-157091:05 Urination frequency Comment: dysuria, hematuria 32-68-504271:05 Quality sym/unlabored 20-73-462866:05 Cough absent :05 Secretions no :05 Breath Sounds RUL clear 25-06-580200:05 Breath Sounds RML clear 81-27-488500:05 Breath Sounds RLL clear 31-93-785610:05 Breath Sounds BENJA clear 46-93-908063:05 Breath Sounds LLL clear 79-40-811091:05 Airway natural 18-61-345207:05 Chest Tube no :05 Oxygen no 77-66-234809:20 Temp >100.4 no :05 Temp <96.8 no :05 Chills with rigors no :05 HR > 90bpm no 24-62-257775:05 Respirations > 20 no 17-88-501952:05 Systolic <90 no :05 headache stiff neck no 25-34-690228:05 Rapid Resp no 58-09-860953:05 Nursing Note VSS. Rx cipro given. Discahrge instructions reviewed. Pt verbalizes understanding. Denies needs, questions, or concerns. Discharge instructions signed et copy to pt. Pt discharged in good, stable condition. : 20 Vital signs Type Value Date Respiration Rate 18breaths per minute :20 Pulse 72beats per minute :20 Oxygen Saturation 98% :20 BP Systolic 113mmHg :20 BP Diastolic 74mmHg 63-29-632943:20 Temperature 97.6F :20 Social history Type Value Smoking Status FORMER SMOKER Treatment Plan No treatment plan text is available for this visit. Hospital discharge instructions Dismissal Condition good Disposition on DC home DC Inst/Educ Give yes Med/Side Effects Rev yes Flu Vac 2013
--- OUTSIDE RECORDS SUMMARY | 2016-11-04 23:51 | XMS REPORT ---
Author [facility] Organization [facility] Address [address] [place], [place] [address] Phone [phone] Summary purpose TRANSITION OF CARE AUTO GENERATION [...] mL/min/1.7 Vitamin B12 580 193-986 pg/ml Hematology 91-43-676775:12:00 Result Normal Range Units WBC 10.5 4.8-10.8 103/uL RBC 4.3 4.2-5.4 106/uL HGB 13.3 12.0-16.0 g/dl HCT 38.9 36.9-47.0 % MCV 90.5 81-99 FL MCH 30.9 27-31 pg MCHC 34.2 33-37 g/dl RDW 12.0 11.5-15.5 % PLT 357 130-400 103/uL MPV H 10.7 7.3-10.4 FL Neutro % 62.7 40-70 % Lymph % 26.0 20-40 % [place] % 9.0 0-10.0 % Eos % 1.4 0-7.0 % Baso % 0.4 0-2 % Neutro # 6.6 1.5-7.5 103/uL Lymph # 2.7 0.9-4.0 103/uL [place] # H 0.9 0-0.8 103/uL Eos # 0.2 0-0.6 103/uL Baso # 0.0 0-0.1 103/uL Radiology Results [id number]:43:00 Chest X-Ray - 2 View PACs Image DATE OF EXAM: Aug 06 2015 RAD 0300-CHEST XRAY 2 VIEW : RADIOLOGY REPORT DATE OF SERVICE: 08/06/15 HISTORY: Cough for 3 weeks CHEST 2 VIEWS 1045 HOURS Comparison is made with 07/14/2015. The lungs are clear. Heart size and pulmonary vessels are normal. There are no hilar or mediastinal abnormalities. IMPRESSION: Normal chest. MD SOLEDAD Mays/nj08/06/2015 10:57:00 / 08/06/2015 11:14:49 cc:Viola Mitchell PA-C This document has been electronically [...] mediastinal abnormalities. IMPRESSION: Normal chest. MD SOLEDAD Mays/nj08/06/2015 10:57:00 / 08/06/2015 11:14:49 cc:Viola Mitchell PA-C This document has been electronically Signed by: ELAN MAHAN MD On: Aug 06 2015 11:43A Result Amended on 2015-08-06 at 11:43:46. Previous status was NM. 10-22-718303:12:00 Result Normal Range Units MPV H 10.7 7.3-10.4 FL History of procedures Procedure Code Code Type Description Date Performed Performing Physician 65531 CPT-4 CHEST X-RAY 08-06-2015 VIOLA MITCHELL 42240 CPT-4 METABOLIC PANEL TOTAL CA 08-06-2015 VIOLA MITCHELL 01148 CPT-4 COMPLETE CBC W/AUTO DIFF WBC 08-06-2015 VIOLA MITCHELL 03970 CPT-4 VITAMIN B-12 08-06-2015 VIOLA MITCHELL Functional status No functional or cognitive status [...]
--- OUTSIDE RECORDS SUMMARY | 2016-11-04 23:54 | XMS REPORT | Clinical Summary ---
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 Dependence on other enabling machines and [...] Shortness of breath 786.05 Active Fabiola Johnson [employer]ACHINE MECH[employer]IC Shortness of breath Nocturnal hypoxia 799.02 Active Fabiola Johnson [employer] TE[employer]ACHINE MECH[employer]IC Hypoxemia Neck pain 723.1 Active Luigi Martínez [employer]ACHINE MECH[employer]IC Cervicalgia Vaginal discharge 623.5 Active Neeraj Collins [...] TABS take as directed 2015 VARENICLINE TARTRATE 43937224756 Active Ahmet Carbajal MD Active CHANTIX 1 MG TABS 1 twice a day to help quit smoking VARENICLINE TARTRATE 97384583694 Active Ahmet Carbajal MD Active HYDROCODONE-ACETAMINOPHEN 5-325 MG TABS 1 to 2 four times a day as needed for pain use until can be seen by specialist HYDROCODONE- ACETAMINOPHEN 20812932784 No Longer Active Vishal Hui MD Active PROAIR HFA 108 (90 BASE) MCG/ACT AERS 2 puffs four times a day as needed 2015 ALBUTEROL SULFATE 06945485915 No Longer Active Vishal Hui MD Active PREDNISONE 20 MG TABS 2 daily for 5 days then 1 daily for 5 days PREDNISONE 11806690081 No Longer Active Vishal Hui MD Active ZITHROMAX Z-EARNEST 250 MG TABS 2 today and then 1 daily for 4 days AZITHROMYCIN 56671321730 No Longer Active Vishal Hui MD Active DICLOFENAC SODIUM 50 MG TBEC 1 tablet by mouth four times daily PRN Pain 2015 DICLOFENAC SODIUM 55745087111 Active Vishal Hui MD Active DICLOFENAC POTASSIUM TABS Take 1 tablet twice a day (pt. is not sure of the dose.) DICLOFENAC POTASSIUM TABS 65495400329 No Longer Active Vishal Hui MD Active VERAPAMIL HCL ER 120 MG ORAL CR-TABS Take 1 tablet by mouth twice a day. VERAPAMIL HCL 02925633018 Active Vishal Hui MD Active FLAGYL 500 MG TAB 1 tablet by mouth bid METRONIDAZOLE 34844875214 No Longer Active Vishal Hui MD Active ABILIFY MAINTENA 400 MG IM SUSR 400mg injection every 28 days ARIPIPRAZOLE 66777200874 Active Silvia Ervinum MANAGER FLEET Active FLUTICASONE PROPIONATE 50 MCG/ACT SUSP 2 sprays each nostril daily before bed. FLUTICASONE PROPIONATE 94805998848 Active Fabiola Johnson APRN Active ADZENYS XR-ODT 6.3 MG ORAL TBED 1 tab po daily for ADHD AMPHETAMINE 60556369168 Active Fabiola Johnson APRN Active BENADRYL 25 MG CAP 4 po at bedtime for insomnia DIPHENHYDRAMINE HCL 73018558039 Active Fabiola Johnson APRN Active KLONOPIN 1 MG ORAL TABS 1 tab po TID CLONAZEPAM 37377181553 Active Fabiola Johnson APRN Active VALIUM 5 MG TAB Take 1-2 tablets daily DIAZEPAM 16976611027 No Longer Active Fabiola Johnson APRN Active METOPROLOL TARTRATE 25 MG ORAL TABS 1/2 tablet twice daily for heart rate and blood pressure METOPROLOL TARTRATE 19895987238 No Longer Active Fabiola Johnson APRN Active MIRALAX ORAL POWD 17GMS DAILY IN WATER POLYETHYLENE GLYCOL 3350 42144674704 Active Vishal Hui MD Active VIIBRYD 10 MG ORAL TABS Take 1 tablet once a day VILAZODONE HCL 34113602186 Active Ahmet Carbajal MD Active MIRALAX PACK 1 po qd PRN Constipation POLYETHYLENE GLYCOL 3350 04543374015 No Longer Active Ahmet Carbajal MD Active MINIPRESS 2 MG CAPS 4 cap po at night PRAZOSIN HCL 23097749245 No Longer Active Ahmet Carbajal MD Active PIROXICAM 20 MG CAPS 1 cap po qd PRN Pain PIROXICAM 16646197422 No Longer Active Ahmet Carbajal MD Active TRAMADOL HCL 50 MG TABS 1-2 po TID PRN Pain TRAMADOL HCL 78565100530 No Longer Active Ahmet Carbajal MD Active METOPROLOL TARTRATE 50 MG TAB 1 po bid METOPROLOL TARTRATE 80911298161 No Longer Active Ahmet Carbajal MD Active ABILIFY 15 MG ORAL TABS 1 tab daily ARIPIPRAZOLE 82026856673 No Longer Active Ahmet Carbajal MD Active PROZAC 20 MG ORAL CAPS 1 tab daily FLUOXETINE HCL 69231323744 No Longer Active Ahmet Carbajal MD Active AMBIEN 5 MG ORAL TABS 1 tab at bedtime ZOLPIDEM TARTRATE 76176602794 No Longer Active Ahmet Carbajal MD Active PREDNISONE 20 MG TAB 2 tabs daily for 4 days, 1 tab daily for 4 days, 1/2 tab daily for 4 days PREDNISONE 45703850911 No Longer Active Ahmet Carbajal MD Active KEFLEX 500 MG CAP 1 po TID x 10 days CEPHALEXIN 60797985121 No Longer Active Vishal Hui MD Active IMITREX 50 MG ORAL TABS 1/2 tab every 6 hours prn SUMATRIPTAN SUCCINATE 04198702787 Active Jillina Fralebron NORIEGA Active TOPAMAX 50 MG ORAL TABS 1 tab twice daily TOPIRAMATE 68021438329 Active Vishal Hui MD Active SAPHRIS 5 MG SUBL 1 po bid ASENAPINE MALEATE 49525498405 No Longer Active Luigi Martínez APRN Active LATUDA 80 MG TABS Take one by mouth daily LURASIDONE HCL 52852032412 No Longer Active Luigi Martínez APRN Active AMLODIPINE BESYLATE 5 MG TABS 1 tablet by mouth daily AMLODIPINE BESYLATE 67453058350 No Longer Active Luigi Martínez APRN Active AMITRIPTYLINE HCL 100 MG TAB one at hs AMITRIPTYLINE HCL 81388610006 No Longer Active Vishal Hui MD Active TRAZODONE HCL 100 MG TAB take 1 at bedtime TRAZODONE HCL 09095933834 No Longer Active Vishal Hui MD Active VYVANSE 40 MG CAPS 1 daily, LISDEXAMFETAMINE DIMESYLATE 67302965806 No Longer Active Vishal Hui MD Active IBUPROFEN 600 MG TAB 1 po TID PRN IBUPROFEN 70187227139 No Longer Active Vishal Hui MD Active PROZAC 20 MG CAP Take one by mouth daily FLUOXETINE HCL 00170932252 No Longer Active Vishal Hui MD Active ZOFRAN 4 MG TABS 1 po q6hr PRN Nausea ONDANSETRON HCL Active Vishal Hui MD Active BACTRIM DS 800-160 MG TABS 1 pill by mouth twice daily SULFAMETHOXAZOLE-TRIMETHOPRIM 74408181273 No Longer Active Sahara Rodriguez MD PhD Active DIFLUCAN 150 MG TAB 1 tablet by mouth daily FLUCONAZOLE 81227958997 No Longer Active Vishal Hui MD Active TIZANIDINE HCL 4 MG TABS 1 po q6hr PRN Muscle Spasm/Back Pain TIZANIDINE HCL 30409636512 Active Vishal Hui MD Active CLINDAMYCIN HCL 150 MG CAPS 1 four times a day CLINDAMYCIN HCL 77994805698 No Longer Active Neeraj Collins MD Active KEFLEX 500 MG ORAL CAPS 1 cap QID by mouth CEPHALEXIN 41852799776 No Longer Active Neeraj Collins MD Active DIFLUCAN 150 MG TABS 1 pill every other day x 2 doses FLUCONAZOLE 63325226032 No Longer Active Sahara Rodriguez MD PhD Active MELATONIN 3 MG CAPS 2 po q hs MELATONIN 02693364010 No Longer Active Sahara Rodriguez MD PhD Active MULTIVITAMINS CAPS Take one by mouth daily MULTIPLE VITAMIN 28588759581 No Longer Active Sahara Rodriguez MD PhD Active BACTRIM DS 800-160 MG TAB 1 tab by mouth twice daily TRIMETHOPRIM-SULFAMETHOXAZOLE 92974573091 No Longer Active Sahara Rodriguez MD PhD Active [facility] PROBIOTIC ORAL CHEW 2 daily po PROBIOTIC PRODUCT 11247940245 No Longer Active Sahara Rodriguez MD PhD Active BACTRIM DS 800-160 MG TABS 1 po BID x 7 days SULFAMETHOXAZOLE-TRIMETHOPRIM 33594278411 No Longer Active Vishal Hui MD Active CHANTIX STARTING MONTH EARNEST 0.5 MG X 11 & 1 MG X 42 TABS 0.5mg daily for 3 days , then 0.5mg BID for 4 days, then 1mg BID VARENICLINE TARTRATE 23675004462 No Longer Active TAMARA Gray Active VERAPAMIL HCL CR 120 MG TAB CR 1 po bid VERAPAMIL HCL 24758970438 No Longer Active Vishal Hui MD Active METOPROLOL SUCCINATE 50 MG TB24 1 tablet by mouth daily METOPROLOL SUCCINATE 26598115269 No Longer Active Vishal Hui MD Active SAPHRIS 10 MG SUBL 1 tab po bid ASENAPINE MALEATE 22362549743 No Longer Active Vishal Hui MD Active LISINOPRIL 20 MG TABS 1 tab po qd LISINOPRIL 15319520640 No Longer Active Vishal Hui MD Active LATUDA 20 MG TABS Take one by mouth daily LURASIDONE HCL 41323111326 No Longer Active Vishal Hui MD Active TRAZODONE HCL 50 MG TABS 1/2 tab po qd prn for anxiety TRAZODONE HCL 61606400359 No Longer Active Vishal Hui MD Active OMEPRAZOLE 20 MG TBEC 1 po q a.m. 30min prior to first food intake OMEPRAZOLE 85553842496 Active Vishal Hui MD Active RANITIDINE HCL 150 MG CAPS 1 twice a day RANITIDINE HCL 50009150480 Active Luigi Martínez APRN Active LINZESS 290 MCG CAPS Take one by mouth daily LINACLOTIDE 02097297257 No Longer Active Vishal Hui MD Active SAPHRIS 5 MG SUBL 1 tab po qd ASENAPINE MALEATE 24413645018 No Longer Active Vishal Hui MD Active ZALEPLON 10 MG CAPS 1 cap po every other night ZALEPLON 28775044695 No Longer Active Vishal Hui MD Active LYRICA 50 MG CAPS 1 tab po TID PREGABALIN 39508417331 No Longer Active Vishal Hui MD Active LORATADINE 10 MG TABS 1 tab po qd LORATADINE 09066712590 No Longer Active Vishal Hui MD Active VERAPAMIL HCL ER 180 MG CR-TABS 1 tab po bid VERAPAMIL HCL 19338103812 No Longer Active Vishal Hui MD Active MIRALAX POWD 1 capfull once daily POLYETHYLENE GLYCOL 3350 85225953655 No Longer Active Vishal Hui MD Active PREDNISONE 20 MG TABS 1 tab po qd PREDNISONE 40691868102 No Longer Active Renzo Thornton DO Active LEVOFLOXACIN 500 MG TABS 1 tab po qd LEVOFLOXACIN 48697672007 No Longer Active Renzo Thornton DO Active BUSPIRONE HCL 15 MG TABS 1 tab po TID BUSPIRONE HCL 87565133657 No Longer Active Renzo Thornton DO Active BENZTROPINE MESYLATE 1 MG TABS 1 tab po qd BENZTROPINE MESYLATE 28217391960 No Longer Active Renzo Thornton DO Active ATENOLOL 25 MG TABS 1 tab po qd ATENOLOL 38142781393 No Longer Active Renzo Thornton DO Active ESCITALOPRAM OXALATE 20 MG TABS 1 tab po qd ESCITALOPRAM OXALATE 14460432904 No Longer Active Renzo Thornton DO Active ADVAIR DISKUS 250-50 MCG/DOSE AEPB 1 puff BID FLUTICASONE-SALMETEROL 20040762013 No Longer Active Renzo Thornton DO Active PREDNISONE 20 MG TAB 2 tabs daily for 3 days, 1 tab daily for 3 days, 1/2 tab daily for 2 days PREDNISONE 06414801380 No Longer Active Vishal Hui MD Active CEFDINIR 300 MG CAPS by mouth twice a day CEFDINIR 75168008405 No Longer Active Vishal Hui MD Active LANSOPRAZOLE 30 MG CPDR 1 cap po qd LANSOPRAZOLE 19181831338 No Longer Active Vishal Hui MD Active BACLOFEN 20 MG TABS 1 tab po tid BACLOFEN 70023456476 No Longer Active Vishal Hui MD Active ADVAIR DISKUS 250-50 MCG/DOSE AEPB 1 puff BID ADVAIR DISKUS 250-50 MCG/DOSE AEPB FLUTICASONE-SALMETEROL Inactive ESCITALOPRAM OXALATE 20 MG TABS 1 tab po qd ESCITALOPRAM OXALATE 20 MG TABS 600102 ESCITALOPRAM OXALATE Inactive ATENOLOL 25 MG TABS 1 tab po qd ATENOLOL 25 MG TABS 130050 ATENOLOL Inactive BENZTROPINE MESYLATE 1 MG TABS 1 tab po qd BENZTROPINE MESYLATE 1 MG TABS 685714 BENZTROPINE MESYLATE Inactive BUSPIRONE HCL 15 MG TABS 1 tab po TID BUSPIRONE HCL 15 MG TABS 801808 BUSPIRONE HCL Inactive LEVOFLOXACIN 500 MG TABS 1 tab po qd LEVOFLOXACIN 500 MG TABS 192264 LEVOFLOXACIN Inactive PREDNISONE 20 MG TABS 1 tab po qd PREDNISONE 20 MG TABS 408293 PREDNISONE Inactive MIRALAX POWD 1 capfull once daily MIRALAX POWD 016421 POLYETHYLENE GLYCOL 3350 Inactive VERAPAMIL HCL ER 180 MG CR-TABS 1 tab po bid VERAPAMIL HCL ER 180 MG CR-TABS VERAPAMIL HCL Inactive LORATADINE 10 MG TABS 1 tab po qd LORATADINE 10 MG TABS 851516 LORATADINE Inactive LYRICA 50 MG CAPS 1 tab po TID LYRICA 50 MG CAPS PREGABALIN Inactive ZALEPLON 10 MG CAPS 1 cap po every other night ZALEPLON 10 MG CAPS 830139 ZALEPLON Inactive SAPHRIS 5 MG SUBL 1 tab po qd SAPHRIS 5 MG SUBL ASENAPINE MALEATE Inactive TRAZODONE HCL 50 MG TABS 1/2 tab po qd prn for anxiety TRAZODONE HCL 50 MG TABS 043509 TRAZODONE HCL Inactive LATUDA 20 MG TABS Take one by mouth daily LATUDA 20 MG TABS LURASIDONE HCL Inactive LISINOPRIL 20 MG TABS 1 tab po qd LISINOPRIL 20 MG TABS 281958 LISINOPRIL Inactive SAPHRIS 10 MG SUBL 1 [...] twice daily BACTRIM DS 800-160 MG TAB 143973 TRIMETHOPRIM-SULFAMETHOXAZOLE Inactive MULTIVITAMINS CAPS Take one by mouth daily MULTIVITAMINS CAPS MULTIPLE VITAMIN Inactive MELATONIN 3 MG CAPS 2 po q hs MELATONIN 3 MG CAPS 021903 MELATONIN Inactive KEFLEX 500 MG ORAL CAPS 1 cap QID by mouth KEFLEX 500 MG ORAL CAPS 726509 CEPHALEXIN Inactive CLINDAMYCIN HCL 150 MG CAPS 1 four times a day CLINDAMYCIN HCL 150 MG CAPS 931950 CLINDAMYCIN HCL Inactive DIFLUCAN 150 MG TAB 1 tablet by mouth daily DIFLUCAN 150 MG TAB 414610 FLUCONAZOLE Inactive PROZAC 20 MG CAP Take one by mouth daily PROZAC 20 MG CAP 884985 FLUOXETINE HCL Inactive IBUPROFEN 600 MG TAB 1 po TID PRN IBUPROFEN 600 MG TAB 685738 IBUPROFEN Inactive VYVANSE 40 MG CAPS 1 daily, VYVANSE 40 MG CAPS LISDEXAMFETAMINE DIMESYLATE Inactive TRAZODONE HCL 100 MG TAB take 1 at bedtime TRAZODONE HCL 100 MG TAB 974153 TRAZODONE HCL Inactive AMITRIPTYLINE HCL 100 MG TAB one at hs AMITRIPTYLINE HCL 100 MG TAB 335488 AMITRIPTYLINE HCL Inactive AMLODIPINE BESYLATE 5 MG TABS 1 tablet by mouth daily AMLODIPINE BESYLATE 5 MG TABS 029984 AMLODIPINE BESYLATE Inactive LATUDA 80 MG TABS Take one by mouth daily LATUDA 80 MG TABS LURASIDONE HCL Inactive SAPHRIS 5 MG SUBL 1 po bid SAPHRIS 5 MG SUBL ASENAPINE MALEATE Inactive PREDNISONE 20 MG TAB 2 tabs daily for 4 days, 1 tab daily for 4 days, 1/2 tab daily for 4 days PREDNISONE 20 MG TAB 472058 PREDNISONE Inactive AMBIEN 5 MG ORAL TABS 1 tab at bedtime AMBIEN 5 MG ORAL TABS 693061 ZOLPIDEM TARTRATE Inactive PROZAC 20 MG ORAL CAPS 1 tab daily PROZAC 20 MG ORAL CAPS 573157 FLUOXETINE HCL Inactive ABILIFY 15 MG ORAL TABS 1 tab daily ABILIFY 15 MG ORAL TABS 985806 ARIPIPRAZOLE Inactive METOPROLOL TARTRATE 50 MG TAB 1 po bid METOPROLOL TARTRATE 50 MG TAB 847222 METOPROLOL TARTRATE Inactive TRAMADOL HCL 50 MG TABS 1-2 po TID PRN Pain TRAMADOL HCL 50 MG TABS 394437 TRAMADOL HCL Inactive PIROXICAM 20 MG CAPS 1 cap po qd PRN Pain PIROXICAM 20 MG CAPS 950808 PIROXICAM Inactive MINIPRESS 2 MG CAPS 4 cap po at night MINIPRESS 2 MG CAPS 399539 PRAZOSIN HCL Inactive MIRALAX PACK 1 po qd PRN Constipation MIRALAX PACK 884527 POLYETHYLENE GLYCOL 3350 Inactive METOPROLOL TARTRATE 25 MG ORAL TABS 1/2 tablet twice daily for heart rate and blood pressure METOPROLOL TARTRATE 25 MG ORAL TABS 970688 METOPROLOL TARTRATE Inactive VALIUM 5 MG TAB Take 1-2 tablets daily VALIUM 5 MG TAB 573736 DIAZEPAM Inactive FLAGYL 500 MG TAB 1 tablet by mouth bid FLAGYL 500 MG TAB 159041 METRONIDAZOLE Inactive DICLOFENAC POTASSIUM TABS Take 1 tablet twice a day (pt. is not sure of the dose.) DICLOFENAC POTASSIUM TABS DICLOFENAC POTASSIUM TABS Inactive ZITHROMAX Z-EARNEST 250 MG TABS 2 today and then 1 daily for 4 days ZITHROMAX Z-EARNEST 250 MG TABS 1739334 AZITHROMYCIN Inactive PREDNISONE 20 MG TABS 2 daily for 5 days then 1 daily for 5 days PREDNISONE 20 MG TABS 379428 PREDNISONE Inactive PROAIR HFA 108 (90 BASE) MCG/ACT AERS 2 puffs four times a day as needed 2015 PROAIR HFA 108 (90 BASE) MCG/ACT AERS ALBUTEROL SULFATE Inactive HYDROCODONE-ACETAMINOPHEN 5-325 MG TABS 1 to 2 four times a day as needed for pain use until can be seen by specialist HYDROCODONE- ACETAMINOPHEN 5-325 MG TABS 723681 HYDROCODONE-ACETAMINOPHEN Inactive CEFDINIR 300 MG CAPS by mouth twice a day CEFDINIR 300 MG CAPS 948528 CEFDINIR Inactive PREDNISONE 20 MG TAB 2 tabs daily for 3 days, 1 tab daily for 3 days, 1/2 tab daily for 2 days PREDNISONE 20 MG TAB 229331 PREDNISONE Inactive BACTRIM DS 800-160 MG TABS 1 po BID x 7 days BACTRIM DS 800-160 MG TABS 273709 SULFAMETHOXAZOLE-TRIMETHOPRIM Inactive DIFLUCAN 150 MG TABS 1 pill every other day x 2 doses DIFLUCAN 150 MG TABS 292790 FLUCONAZOLE Inactive BACTRIM DS 800-160 MG TABS 1 pill by mouth twice daily BACTRIM DS 800-160 MG TABS 012895 SULFAMETHOXAZOLE-TRIMETHOPRIM Inactive KEFLEX 500 MG CAP 1 po TID x 10 days KEFLEX 500 MG CAP 214210 CEPHALEXIN Inactive Advance Directives Directive Description Start [...] % 11.6-14.8 platelet count 394 10^3/MM^3 10*3/mm3 538-646 5473/01/11 leukocyte count, blood 13.8 10^3/MM^3 10*3/mm3 4.6-10.2 [...] Panel - Chemistry sodium, serum 139 mmol/L 317-249 6644/12/03 carbon dioxide, venous blood 28.5 mmol/L 21.0-32.0 [...] 5.5 % 4.3-6.0 cholesterol, serum 159 mg/dL 650-694 0920/12/03 triglyceride, serum, fasting 118 mg/dL 30-200 HDL [...] Panel - Chemistry sodium, serum 139 mmol/L 652-044 6304/12/22 carbon dioxide, venous blood 26.8 mmol/L 21.0-32.0 potassium, serum 4.2 mmol/L 3.5-5.2 chloride, serum 103 mmol/L 98-107 blood glucose 115 mg/dL 65-110 urea nitrogen, blood 20 mg/dL 7-18 creatinine, serum 0.90 mg/dL 0.55-1.30 alanine aminotransferase (SGPT), serum 38 U/L -78 aspartate aminotransferase (SGOT), serum 19 U/L 15-37 calcium, serum 8.6 mg/dL 8.5-10.1 bilirubin, serum, total 0.30 mg/dL 0.00-1.00 sodium, serum 139 mmol/L 309-804 5162/01/11 carbon dioxide, venous blood 26.6 mmol/L 21.0-32.0 potassium, serum 4.1 mmol/L 3.5-5.2 chloride, serum 100 mmol/L 98-107 blood glucose 86 mg/dL 65-110 urea nitrogen, blood 16 mg/dL 7-18 creatinine, serum 1.00 mg/dL 0.55-1.30 alanine aminotransferase (SGPT), serum 48 U/L 78 aspartate aminotransferase (SGOT), serum 17 U/L 15-37 calcium, serum 9.1 mg/dL 8.5-10.1 bilirubin, serum, total 0.40 mg/dL 0.00-1.00 sodium, serum 142 mmol/L 722-355 2936/06/08 carbon dioxide, venous blood 27.6 mmol/L 21.0-32.0 potassium, serum 4.0 mmol/L 3.5-5.2 chloride, serum 105 mmol/L 98-107 blood glucose 95 mg/dL 65-110 urea nitrogen, blood 8 mg/dL 7-18 creatinine, serum 0.75 mg/dL 0.55-1.30 alanine aminotransferase (SGPT), serum 49 U/L - aspartate aminotransferase (SGOT), serum 28 U/L 15-37 calcium, serum 9.4 mg/dL 8.5-10.1 bilirubin, serum, total 0.30 mg/dL 0.00-1.00 sodium, serum 140 mmol/L 153-713 2839/08/08 carbon dioxide, venous blood 33.7 mmol/L 21.0-32.0 [...] Rate - Chemistry sodium, serum 139 mmol/L 858-488 3349/12/11 carbon dioxide, venous blood 25.4 mmol/L 21.0-32.0 [...] mg/dL Encounters Code Encounter Date Provider Facility CPT-10122 Level 3 Est. Patient 11:36:17 CDT Ahmet Carbajal MD [facility] CPT-65836 Level 3 Est. Patient 13:29:16 CDT Vishal Hui MD [facility] CPT-20303 Level 3 Est. Patient 14:27:52 CDT Neeraj Collins MD [facility] CPT-92467 Level 3 Est. Patient 08:56:03 CDT Luigi Martínez APRN [facility] CPT-31226 Level 4 Est. Patient 12:11:48 CDT Fabiola Johnson APRN [facility] CPT-19504 Level 3 New Patient 16:53:37 CDT Albert Caldera MD [facility] CPT-30125 Level 3 Est. Patient 11:25:49 CDT Renzo Thornton DO [facility] CPT-50610 Level 3 Est. Patient 15:22:01 CDT Ahmet Carbajal MD [facility] CPT-43281 Level 4 Est. Patient 09:00:51 [employer] Vishal Hui MD [facility] CPT-51944 Level 3 Est. Patient 11:37:33 [employer]AD [employer] HEL[employer] Vishal Hui MD [facility] CPT-82177 Level 3 Est. Patient 08:41:09 [employer] HEL[employer] Vishal Hui MD [facility] CPT-66166 Level 4 Est. Patient 10:19:35 [employer] HEL[employer] Vishal Hui MD [facility] CPT-47191 Level 3 Est. Patient 13:35:45 CDT Vishal Hui MD [facility] CPT-82948 Level 4 Est. Patient 10:08:37 CDT Vishal Hui MD [facility] CPT-10709 Level 3 Est. Patient 11:22:10 CDT Vishal Hui MD [facility] CPT-23991 Level 3 Est. Patient 11:03:32 CDT Sahara Rodriguez MD PhD [facility] CPT-62310 Level 3 Est. Patient 09:41:35 CDT Vishal Hui MD [facility] CPT-91662 Level 3 Est. Patient 12:00:41 CDT Neeraj Collins MD [facility] CPT-46317 Level 3 Est. Patient 09:16:24 CDT Vishal Hui MD [facility] CPT-80128 Level 4 Est. Patient 13:59:09 CDT Neeraj Collins MD [facility] CPT-43874 Level 3 Est. Patient 15:19:43 CDT Renzo Thornton [facility] CPT-72003 Level 3 Est. Patient 18:10:26 CDT Sahara Rodriguez MD [facility] CPT-70957 Level 3 Est. Patient 14:49:50 CDT Vishal Hui MD [facility] CPT-45606 Level 4 Est. Patient 18:41:46 CDT Neeraj Collins MD [facility] CPT-74719 Level 4 Est. Patient 09:18:38 [employer] Vishal Hui MD [facility] CPT-95971 Level 3 Est. Patient 14:43:55 [employer] Vishal Hui MD [facility] CPT-33673 Level 3 Est. Patient 15:26:33 [employer] Sahara Rodriguez MD PhD [facility] CPT-34527 Level 3 Est. Patient 10:32:14 [employer] Vishal Hui MD [facility] CPT-05483 Level 3 Est. Patient 15:12:52 [employer] Vishal Hui MD [facility] CPT-12823 Level 4 Est. Patient 09:19:27 CDT Vishal Hui MD [facility] CPT-62852 Level 3 Est. Patient 15:53:00 CDT Renzo Thornton [facility] CPT-35011 Level 3 Est. Patient 15:50:30 CDT Renzo Thornton [facility] CPT-27225 Level 3 Est. Patient 16:55:24 CDT Vishal Hui MD [facility] Procedures Code Procedure Name Date Entry Date Standard Description CPT-53968 Abx/Therapy Injection 08:47:09 CDT CPT-23632 Abx/Therapy Injection 13:29:56 CDT CPT-10604 Abx/Therapy Injection 08:36:16 CDT CPT-45981 Wet Mount - LAB USE ONLY 17:44:58 CDT CPT-21122 UA w micro - LAB USE ONLY 17:44:58 CDT CPT-34783 CMP - LAB USE ONLY 17:44:58 CDT CPT-12811 Venipuncture Draw Fee 17:44:58 CDT CPT-59646 Cervical Min 4V - XRAY USE ONLY 09:01:40 CDT CPT-55185 Chest 2V Frontal and Lat - XRAY USE ONLY 11:06:31 CDT CPT-15607 EKG Trac and Interp - XRAY USE ONLY 11:31:43 CDT 08/26 CPT-J3420 Vitamin B12 1000mcg (Cyanocobalamin) 08:10:26 [employer] 04/12 CPT-92205 Abx/Therapy Injection 08:10:26 [employer] CPT-G0438 Initial Annual Wellness Exam 19:01:01 [employer] CPT-J3420 Vitamin B12 1000mcg (Cyanocobalamin) 16:57:46 CDT 08/14 CPT-86906 Recombivax HB Injection Suspension 5 MCG/0.5ML 08:37:50 [employer] CPT-23113 Immunization Single Admin 08:37:50 [employer] CPT-J3420 Vitamin B12 1000mcg (Cyanocobalamin) 08:32:16 [employer] HEL[employer] 03/11 CPT-95900 Abx/Therapy Injection 08:32:16 [employer] CPT-73090 Chest 2V Frontal and Lat 11:46:38 [employer] CPT-07636 Venipuncture Draw Fee 09:12:45 [employer] CPT-J3420 Vitamin B12 1000mcg (Cyanocobalamin) 08:50:15 [employer] HEL[employer] 02/08 CPT-29450 Abx/Therapy Injection 08:50:15 [employer] CPT-Cryo Cryotherapy 10:19:35 [employer] CPT-000 Give Appropriate Flu Vaccine 09:22:16 CDT CPT-J3420 Vitamin B12 1000mcg (Cyanocobalamin) 19:08:57 CDT 01/11 CPT-99423 Abx/Therapy Injection 19:08:57 CDT CPT-J3420 Vitamin B12 1000mcg (Cyanocobalamin) 08:19:08 CDT 12/11 CPT-05590 Abx/Therapy Injection 08:19:08 CDT CPT-J3420 Vitamin B12 1000mcg (Cyanocobalamin) 14:48:00 CDT 11/09 CPT-82511 Abx/Therapy Injection 14:47:59 CDT CPT-J3420 Vitamin B12 1000mcg (Cyanocobalamin) 08:34:04 CDT 10/09 CPT-98486 Abx/Therapy Injection 08:34:04 CDT CPT-J3420 Vitamin B12 1000mcg (Cyanocobalamin) 09:18:52 CDT 09/11 CPT-87890 Abx/Therapy Injection 09:18:52 CDT CPT-J3420 Vitamin B12 1000mcg (Cyanocobalamin) 08:35:44 CDT 09/04 CPT-73555 Abx/Therapy Injection 08:35:44 CDT CPT-73633 Immunization Single Admin 11:07:16 CDT CPT-42852 Hepatitis B adult IM 11:07:16 CDT CPT-J3420 Vitamin B12 1000mcg (Cyanocobalamin) 11:00:49 CDT 08/28 CPT-J1040 Depo Medrol 80 mg (Methyl Prednisolone Acetate) 11:00: 49 CDT CPT-74336 Abx/Therapy Injection 11:00:49 CDT CPT-J1040 Depo Medrol 80 mg (Methyl Prednisolone Acetate) 09:16: 23 CDT CPT-J3420 Vitamin B12 1000mcg (Cyanocobalamin) 08:27:05 CDT 08/20 CPT-06558 Abx/Therapy Injection 08:27:05 CDT CPT-13547 Recombivax HB Injection Suspension 5 MCG/0.5ML 10:00:41 CDT CPT-69977 Administration single or combination vaccine inc oral 10 :00:41 CDT CPT-99169 Sono transvag pelvis non OB uterus ovaries cervix 16:36: 57 CDT CPT-09597 LS spine comp w obliq 09:50:55 [employer] CPT-43343 Abd compl w upright 09:50:55 [employer] CPT-J1100 Decadron 4mg (Dexamethasone) 15:51:24 [employer] CPT-J1030 Depo Medrol 40 mg (Methyl Prednisolone Acetate) 15:51: 24 [employer] CPT-88974 Abx/Therapy Injection 15:51:24 [employer] CPT-J1100 Decadron 4mg (Dexamethasone) 15:26:33 [employer] CPT-J1030 Depo Medrol 40 mg (Methyl Prednisolone Acetate) 15:26: 33 [employer] CPT-64257 Sono retroperitoneal complete kidneys and bladder 17:15: 30 CDT CPT-35677 Abd compl w upright 16:09:25 CDT CPT-J1100 Decadron 8mg (Dexamethasone) 17:07:57 CDT CPT-15066 Abx/Therapy Injection 17:07:57 CDT CPT-J1100 Decadron 8mg (Dexamethasone) 16:55:24 CDT CPT-69568 Chest 2V Frontal and Lat 16:32:44 CDT
--- OUTSIDE RECORDS SUMMARY | 2016-11-04 23:58 | XMS REPORT ---
Author Author [employer] Medical Staff Organization [facility] Address [address] [place], [place] [address] Phone [phone] Care Team Providers Care Mobile Engineer Name Role Phone TINO ABRAMS MD PP [phone] Summary purpose TRANSITION OF CARE AUTO GENERATION [...]
--- OUTSIDE RECORDS SUMMARY | 2016-11-04 23:58 | XMS REPORT ---
Author Author [facility] Medical Staff Organization [facility] Address [address] [place], [place] [address] Phone [phone] Care Team Providers Care Project Architect Name Role Phone TINO ABRAMS MD PP [phone] Summary purpose TRANSITION OF CARE AUTO GENERATION Chief Complaint and Reason for Visit Admit Diagnosis 1 NONSPECIF SKIN ERUPT NEC Problem list No authorized problems tracked for [...] Code Type Description Date Performed Performing Physician A9270 CPT-4 NON-COVERED ITEM OR SERVICE 07-29-2014 MINO AGUILAR 96050 CPT-4 EMERGENCY DEPT VISIT 07-29-2014 MINO LEARYNDT 95006 CPT-4 EMERGENCY DEPT VISIT 07-29-2014 MINO AGUILAR Functional status Functional Status Finding Observation Time Ambulation Asst Dev none [id number]:27 Abdomen Appearance round 76-26-878891:27 Vick no 42-76-934455:27 Urination normal 33-52-042660:27 Quality sym/unlabored 14-49-091282:27 Cough absent 18-34-957163:27 Secretions no 80-34-651396:27 Breath Sounds RUL clear :27 Breath Sounds RML clear :27 Breath Sounds RLL clear :27 Breath Sounds BENJA clear :27 Breath Sounds LLL clear :27 Airway natural :27 Oxygen no :45 Temp >100.4 no : [...] 86beats per minute :45 Oxygen Saturation 99% 39-98-384359:45 BP Systolic 120mmHg :45 BP Diastolic 65mmHg [...]
--- OUTSIDE RECORDS SUMMARY | 2016-11-04 23:58 | XMS REPORT | Clinical Summary ---
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 LINACLOTIDE 38972207284 No Longer Active Sheila Calderon LPN Active AMITIZA 8 MCG ORAL CAPS 1 tab BID LUBIPROSTONE 36117553456 No Longer Active Lynda Xiao CONTINUOUS WELD PIPE MILL SUPERVISOR Active DIFLUCAN 150 MG TABS 1 by mouth for yeast FLUCONAZOLE 81500614131 Active Suzan Boo APRN Active LACTULOSE 10 GM/15ML ORAL SOLN 30mL oral BID for IBS-C LACTULOSE 86529834169 Active Suzan Boo APRN Active BACTRIM DS 800-160 MG TABS 1 twice a day SULFAMETHOXAZOLE- TRIMETHOPRIM 84337983648 Active Lynda Juarezl CONTINUOUS WELD PIPE MILL SUPERVISOR Active MUPIROCIN 2 % OINT apply twice a day MUPIROCIN 30264702610 Active Suzan Boo APRN Active TESSALON PERLES 100 MG CAPS 1 three times a day as needed for cough BENZONATATE 90195575962 No Longer Active Suzan Boo APRN Active BACTRIM DS 800-160 MG TABS 1 twice a day SULFAMETHOXAZOLE-TRIMETHOPRIM 39370977525 No Longer Active Suzan Boo APRN Active DIFLUCAN 150 MG TABS 1 by mouth for yeast FLUCONAZOLE 79222219498 No Longer Active Suzan Boo APRN Active EQ NICOTINE 21 MG/24HR TRANS PT24 Apply daily to stop smoking NICOTINE 89305747406 No Longer Active Suzan Boo APRN Active PREDNISONE 10 MG TABS 2 daily for 5 days then 1 daily for 5 days PREDNISONE 50501294624 No Longer Active Suzan Boo APRN Active LEVAQUIN 500 MG TABS 1 daily for infection LEVOFLOXACIN 84823027880 No Longer Active Suzan Boo APRN Active TROPICAMIDE 0.5 % OPHTH SOLN 1 drop PRN eye spasms TROPICAMIDE 21660578546 No Longer Active Suzan Boo APRN Active PREDNISONE 20 MG TAB 1 tablet daily x 4 days PREDNISONE 22570771457 No Longer Active Suzan Boo APRN Active ACETAMINOPHEN-CODEINE 120-12 MG/5ML SOLN 5 ml by mouth every 4-6 hours if needed for cough ACETAMINOPHEN-CODEINE 55868120682 No Longer Active Suzan Boo APRN Active KEFLEX 500 MG CAP 1 po qid CEPHALEXIN 79561537717 No Longer Active Suzan Boo APRN Active FLOVENT HFA 110 MCG/ACT AERO 2 puffs inhaled b.i.d. FLUTICASONE PROPIONATE HFA 95296614874 Active Renzo Thornton DO Active RISPERDAL 4 MG ORAL TABS 1 tab at bedtime RISPERIDONE 19430315091 Active Samantha Rothman RMA Active ZOFRAN 4 MG TABS 1 po q6hr PRN Nausea ONDANSETRON HCL No Longer Active Suzan Boo APRN Active FLUTICASONE PROPIONATE 50 MCG/ACT SUSP 2 sprays each nostril daily before bed. FLUTICASONE PROPIONATE 48165719847 No Longer Active Suzan Boo APRN Active ASPIRIN 325 MG ORAL TABS 1 tab q.d ASPIRIN 63777818816 No Longer Active Suzan Boo APRN Active HALOPERIDOL 10 MG ORAL TABS 1 tab q.d HALOPERIDOL 89984290755 No Longer Active Suzan Boo APRN Active GUAIFENESIN-CODEINE 100-10 MG/5ML SYRP 5ml every 4 to 6 hours as needed for cough GUAIFENESIN-CODEINE 33235567048 No Longer Active Suzan Boo APRN Active ZITHROMAX Z-EARNEST 250 MG TABS 2 today and then 1 daily for 4 days AZITHROMYCIN 33908634383 No Longer Active Suzan Boo APRN Active CLONAZEPAM 1 MG ORAL TABS 1 twice a day and an additional 1 tablet every other day as needed for pseudoseizures or anxiety CLONAZEPAM 76692869475 Active Suzan Boo APRN Active HYDROCODONE-ACETAMINOPHEN 5-325 MG ORAL TABS 1 tab two times a day HYDROCODONE-ACETAMINOPHEN 70873249707 No Longer Active Ahmet Carbajal MD Active LAMICTAL 100 MG ORAL TABS 1 tab 2 times qd. LAMOTRIGINE 57879376084 Active Ahmet Carbajal MD Active PREDNISONE 20 MG TABS 2 daily for 5 days then 1 daily for 5 days PREDNISONE 67006702771 No Longer Active Ahemt Carbajal MD Active FLUTICASONE PROPIONATE 50 MCG/ACT SUSP 1 to 2 sprays each nostril daily for allergies FLUTICASONE PROPIONATE 78238779680 Active Tila Valenzuela Active BENADRYL 25 MG CAP 4 po at bedtime for insomnia DIPHENHYDRAMINE HCL 89999898346 No Longer Active Ahmet Carbajal MD Active ADVAIR DISKUS 250-50 MCG/DOSE INH AEPB 1 puff twice a day for asthma FLUTICASONE-SALMETEROL 77286266534 No Longer Active Ahmet Carbajal MD Active KLONOPIN 1 MG ORAL TABS 1 tab po TID CLONAZEPAM 49297104892 No Longer Active Ahmet Carbajal MD Active ABILIFY MAINTENA 400 MG IM SUSR 400mg injection every 26 days ARIPIPRAZOLE 27768477084 No Longer Active Ahmet Carbajal MD Active TRAMADOL HCL 50 MG TABS 1/2-1 tab TID PRN TRAMADOL HCL 65288039897 No Longer Active Ahmet Carbajal MD Active BACTRIM DS 800-160 MG TABS 1 twice a day SULFAMETHOXAZOLE- TRIMETHOPRIM 69963106026 No Longer Active Ahmet Carbajal MD Active PROAIR HFA 108 (90 BASE) MCG/ACT AERS 2 puffs four times a day as needed 2015 ALBUTEROL SULFATE 50830811152 Active Honey Hinton APRN Active MONISTAT 7 COMBO PACK WOODROW 100 & 2 MG-% (9GM) VAG KIT 1 applicatorful per vagina q pm x 7 MICONAZOLE NITRATE 54624955943 No Longer Active Ahmet Carbajal MD Active FLAGYL 500 MG TAB 1 tablet by mouth bid METRONIDAZOLE 66219998032 No Longer Active Ahmet Carbajal MD Active OXYCODONE HCL ER 10 MG ORAL T12A 1/2 tab by mouth every 4 hours prn OXYCODONE HCL 18470143046 No Longer Active Ahmet Carbajal MD Active METHYLPREDNISOLONE 4 MG ORAL TABS po daily METHYLPREDNISOLONE 15319713835 No Longer Active Ahmet Carbajal MD Active LEVOFLOXACIN 500 MG ORAL TABS po daily LEVOFLOXACIN 24006916967 No Longer Active Ahmet Carbajal MD Active VIIBRYD 10 MG ORAL TABS Take 1 tablet once a day VILAZODONE HCL 28740097125 No Longer Active Ahmet Carbajal MD Active TOPAMAX 50 MG ORAL TABS 1 tab twice daily TOPIRAMATE 52869350496 No Longer Active Ahmet Carbajal MD Active DICLOFENAC SODIUM 50 MG TBEC 1 tablet by mouth four times daily PRN Pain 2015 DICLOFENAC SODIUM 23771545023 No Longer Active Ahmet Carbajal MD Active ADZENYS XR-ODT 6.3 MG ORAL TBED 1 tab po daily for ADHD AMPHETAMINE 21535029447 No Longer Active Ahmet Carbajal MD Active CHANTIX 1 MG TABS 1 twice a day to help quit smoking VARENICLINE TARTRATE 33998797835 No Longer Active Dipika Burgos MD Active CHANTIX STARTING MONTH EARNEST 0.5 MG X 11 & 1 MG X 42 TABS take as directed 2015 VARENICLINE TARTRATE 41133390622 No Longer Active Dipika Burgos MD Active TESSALON PERLES 100 MG CAP 1 to 2 tablets by mouth 3 times daily as needed for cough BENZONATATE 06446457781 No Longer Active Luigi Martínez APRN Active IMITREX 50 MG ORAL TABS 0.5 po x 1 PRN Headache. May repeat dose x 1 in 2 hours if needed SUMATRIPTAN SUCCINATE 66497169104 Active Ahmet Carbajal MD Active HYDROCODONE-ACETAMINOPHEN 5-325 MG TABS 1 to 2 four times a day as needed for pain use until can be seen by specialist HYDROCODONE- ACETAMINOPHEN 24039438422 No Longer Active Vishal Hui MD Active PROAIR HFA 108 (90 BASE) MCG/ACT AERS 2 puffs four times a day as needed 2015 ALBUTEROL SULFATE 53450073546 No Longer Active Vishal Hui MD Active PREDNISONE 20 MG TABS 2 daily for 5 days then 1 daily for 5 days PREDNISONE 24389517654 No Longer Active Vishal Hui MD Active ZITHROMAX Z-EARNEST 250 MG TABS 2 today and then 1 daily for 4 days AZITHROMYCIN 40274496362 No Longer Active Vishal Hui MD Active DICLOFENAC POTASSIUM TABS Take 1 tablet twice a day (pt. is not sure of the dose.) DICLOFENAC POTASSIUM TABS 95858853982 No Longer Active Vishal Hui MD Active VERAPAMIL HCL ER 120 MG ORAL CR-TABS Take 1 tablet by mouth twice a day. VERAPAMIL HCL 69711873992 Active Vishal Hui MD Active FLAGYL 500 MG TAB 1 tablet by mouth bid METRONIDAZOLE 72238467116 No Longer Active Vishal Hui MD Active VALIUM 5 MG TAB Take 1-2 tablets daily DIAZEPAM 85258588901 No Longer Active Fabiola Johnson APRN Active METOPROLOL TARTRATE 25 MG ORAL TABS 1/2 tablet twice daily for heart rate and blood pressure METOPROLOL TARTRATE 37583613369 No Longer Active Fabiola Johnson APRN Active MIRALAX ORAL POWD 17GMS DAILY IN WATER POLYETHYLENE GLYCOL 3350 51984853416 Active TAMARA Casey Active MIRALAX PACK 1 po qd PRN Constipation POLYETHYLENE GLYCOL 3350 57188299970 No Longer Active Ahmet Carbajal MD Active MINIPRESS 2 MG CAPS 4 cap po at night PRAZOSIN HCL 86064790436 No Longer Active Ahmet Carbajal MD Active PIROXICAM 20 MG CAPS 1 cap po qd PRN Pain PIROXICAM 12094376779 No Longer Active Ahmet Carbajal MD Active TRAMADOL HCL 50 MG TABS 1-2 po TID PRN Pain TRAMADOL HCL 79401379809 No Longer Active Ahmet Carbajal MD Active METOPROLOL TARTRATE 50 MG TAB 1 po bid METOPROLOL TARTRATE 97222414371 No Longer Active Ahmet Carbajal MD Active ABILIFY 15 MG ORAL TABS 1 tab daily ARIPIPRAZOLE 52980436777 No Longer Active Ahmet Carbajal MD Active PROZAC 20 MG ORAL CAPS 1 tab daily FLUOXETINE HCL 85157569830 No Longer Active Ahmet Carbajal MD Active AMBIEN 5 MG ORAL TABS 1 tab at bedtime ZOLPIDEM TARTRATE 58411865316 No Longer Active Ahmet Carbajal MD Active PREDNISONE 20 MG TAB 2 tabs daily for 4 days, 1 tab daily for 4 days, 1/2 tab daily for 4 days PREDNISONE 99612520076 No Longer Active Ahmet Carbajal MD Active KEFLEX 500 MG CAP 1 po TID x 10 days CEPHALEXIN 33671227086 No Longer Active Vishal Hui MD Active SAPHRIS 5 MG SUBL 1 po bid ASENAPINE MALEATE 46320317248 No Longer Active Luigi Martínez APRN Active LATUDA 80 MG TABS Take one by mouth daily LURASIDONE HCL 73133015312 No Longer Active Pacollina Mauricio NORIEGA Active AMLODIPINE BESYLATE 5 MG TABS 1 tablet by mouth daily AMLODIPINE BESYLATE 01770018998 No Longer Active Pacollina Mauricio NORIEGA Active AMITRIPTYLINE HCL 100 MG TAB one at hs AMITRIPTYLINE HCL 78862912633 No Longer Active Vishal Hui MD Active TRAZODONE HCL 100 MG TAB take 1 at bedtime TRAZODONE HCL 31567730929 No Longer Active Vishal Hui MD Active VYVANSE 40 MG CAPS 1 daily, LISDEXAMFETAMINE DIMESYLATE 61753905520 No Longer Active Vishal Hui MD Active IBUPROFEN 600 MG TAB 1 po TID PRN IBUPROFEN 53242857058 No Longer Active Vishal Hui MD Active PROZAC 20 MG CAP Take one by mouth daily FLUOXETINE HCL 81092903560 No Longer Active Vishal Hui MD Active BACTRIM DS 800-160 MG TABS 1 pill by mouth twice daily SULFAMETHOXAZOLE-TRIMETHOPRIM 99428090607 No Longer Active Sahara Rodriguez MD PhD Active DIFLUCAN 150 MG TAB 1 tablet by mouth daily FLUCONAZOLE 38786309868 No Longer Active Vishal Hui MD Active TIZANIDINE HCL 4 MG TABS 1 po q6hr PRN Muscle Spasm/Back Pain TIZANIDINE HCL 68938952980 Active TAMARA Casey Active CLINDAMYCIN HCL 150 MG CAPS 1 four times a day CLINDAMYCIN HCL 63168309241 No Longer Active Neeraj Collins MD Active KEFLEX 500 MG ORAL CAPS 1 cap QID by mouth CEPHALEXIN 01385182967 No Longer Active Neeraj Collins MD Active DIFLUCAN 150 MG TABS 1 pill every other day x 2 doses FLUCONAZOLE 65715185837 No Longer Active Sahara Rodriguez MD PhD Active MELATONIN 3 MG CAPS 2 po q hs MELATONIN 64763209745 No Longer Active Sahara Rodriguez MD PhD Active MULTIVITAMINS CAPS Take one by mouth daily MULTIPLE VITAMIN 85888161786 No Longer Active Sahara Rodriguez MD PhD Active BACTRIM DS 800-160 MG TAB 1 tab by mouth twice daily TRIMETHOPRIM-SULFAMETHOXAZOLE 63561515952 No Longer Active Sahara Rodriguez MD PhD Active [facility] PROBIOTIC ORAL CHEW 2 daily po PROBIOTIC PRODUCT 38724387758 No Longer Active Sahara Rodriguez MD PhD Active BACTRIM DS 800-160 MG TABS 1 po BID x 7 days SULFAMETHOXAZOLE-TRIMETHOPRIM 08396800869 No Longer Active Vishal Hui MD Active CHANTIX STARTING MONTH EARNEST 0.5 MG X 11 & 1 MG X 42 TABS 0.5mg daily for 3 days , then 0.5mg BID for 4 days, then 1mg BID VARENICLINE TARTRATE 01507686775 No Longer Active TAMARA Gray Active VERAPAMIL HCL CR 120 MG TAB CR 1 po bid VERAPAMIL HCL 43466223994 No Longer Active Vishal Hui MD Active METOPROLOL SUCCINATE 50 MG TB24 1 tablet by mouth daily METOPROLOL SUCCINATE 08873604719 No Longer Active Vishal Hui MD Active SAPHRIS 10 MG SUBL 1 tab po bid ASENAPINE MALEATE 60271135878 No Longer Active Vishal Hui MD Active LISINOPRIL 20 MG TABS 1 tab po qd LISINOPRIL 00727393542 No Longer Active Vishal Hui MD Active LATUDA 20 MG TABS Take one by mouth daily LURASIDONE HCL 96065042530 No Longer Active Vishal Hui MD Active TRAZODONE HCL 50 MG TABS 1/2 tab po qd prn for anxiety TRAZODONE HCL 53988098309 No Longer Active Vishal Hui MD Active OMEPRAZOLE 20 MG TBEC 1 po q a.m. 30min prior to first food intake OMEPRAZOLE 01296938070 Active TAMARA Casey Active RANITIDINE HCL 150 MG CAPS 1 twice a day RANITIDINE HCL 49632418789 Active Lynda Xiao LPN Active LINZESS 290 MCG CAPS Take one by mouth daily LINACLOTIDE 46387871610 No Longer Active Vishal Hui MD Active SAPHRIS 5 MG SUBL 1 tab po qd ASENAPINE MALEATE 61917664466 No Longer Active Vishal Hui MD Active ZALEPLON 10 MG CAPS 1 cap po every other night ZALEPLON 85476193637 No Longer Active Vishal Hui MD Active LYRICA 50 MG CAPS 1 tab po TID PREGABALIN 39291988790 No Longer Active Vishal Hui MD Active LORATADINE 10 MG TABS 1 tab po qd LORATADINE 78096085638 No Longer Active Vishal Hui MD Active VERAPAMIL HCL ER 180 MG CR-TABS 1 tab po bid VERAPAMIL HCL 29406194113 No Longer Active Vishal Hui MD Active MIRALAX POWD 1 capfull once daily POLYETHYLENE GLYCOL 3350 46650217100 No Longer Active Vishal Hui MD Active PREDNISONE 20 MG TABS 1 tab po qd PREDNISONE 73375252933 No Longer Active Renzo Thornton DO Active LEVOFLOXACIN 500 MG TABS 1 tab po qd LEVOFLOXACIN 69086152020 No Longer Active Renzo Thornton DO Active BUSPIRONE HCL 15 MG TABS 1 tab po TID BUSPIRONE HCL 80167692436 No Longer Active Renzo Thornton DO Active BENZTROPINE MESYLATE 1 MG TABS 1 tab po qd BENZTROPINE MESYLATE 56917078963 No Longer Active Renzo Thornton DO Active ATENOLOL 25 MG TABS 1 tab po qd ATENOLOL 18464355833 No Longer Active Renzo Thornton DO Active ESCITALOPRAM OXALATE 20 MG TABS 1 tab po qd ESCITALOPRAM OXALATE 29501447147 No Longer Active Renzo Thornton DO Active ADVAIR DISKUS 250-50 MCG/DOSE AEPB 1 puff BID FLUTICASONE-SALMETEROL 86422348749 No Longer Active Renzo Thornton DO Active PREDNISONE 20 MG TAB 2 tabs daily for 3 days, 1 tab daily for 3 days, 1/2 tab daily for 2 days PREDNISONE 48899834690 No Longer Active Vishal Hui MD Active CEFDINIR 300 MG CAPS by mouth twice a day CEFDINIR 70113222336 No Longer Active Vishal Hui MD Active LANSOPRAZOLE 30 MG CPDR 1 cap po qd LANSOPRAZOLE 85232521791 No Longer Active Vishal Hui MD Active BACLOFEN 20 MG TABS 1 tab po tid BACLOFEN 40244028895 No Longer Active Vishal Hui MD Active ADVAIR DISKUS 250-50 MCG/DOSE AEPB 1 puff BID ADVAIR DISKUS 250-50 MCG/DOSE AEPB FLUTICASONE-SALMETEROL Inactive ESCITALOPRAM OXALATE 20 MG TABS 1 tab po qd ESCITALOPRAM OXALATE 20 MG TABS 190606 ESCITALOPRAM OXALATE Inactive ATENOLOL 25 MG TABS 1 tab po qd ATENOLOL 25 MG TABS 429804 ATENOLOL Inactive BENZTROPINE MESYLATE 1 MG TABS 1 tab po qd BENZTROPINE MESYLATE 1 MG TABS 906544 BENZTROPINE MESYLATE Inactive BUSPIRONE HCL 15 MG TABS 1 tab po TID BUSPIRONE HCL 15 MG TABS 623102 BUSPIRONE HCL Inactive LEVOFLOXACIN 500 MG TABS 1 tab po qd LEVOFLOXACIN 500 MG TABS 404930 LEVOFLOXACIN Inactive PREDNISONE 20 MG TABS 1 tab po qd PREDNISONE 20 MG TABS 323274 PREDNISONE Inactive MIRALAX POWD 1 capfull once daily MIRALAX POWD 823276 POLYETHYLENE GLYCOL 3350 Inactive VERAPAMIL HCL ER 180 MG CR-TABS 1 tab po bid VERAPAMIL HCL ER 180 MG CR-TABS VERAPAMIL HCL Inactive LORATADINE 10 MG TABS 1 tab po qd LORATADINE 10 MG TABS 856285 LORATADINE Inactive LYRICA 50 MG CAPS 1 tab po TID LYRICA 50 MG CAPS PREGABALIN Inactive ZALEPLON 10 MG CAPS 1 cap po every other night ZALEPLON 10 MG CAPS 433453 ZALEPLON Inactive SAPHRIS 5 MG SUBL 1 tab po qd SAPHRIS 5 MG SUBL ASENAPINE MALEATE Inactive TRAZODONE HCL 50 MG TABS 1/2 tab po qd prn for anxiety TRAZODONE HCL 50 MG TABS 153153 TRAZODONE HCL Inactive LATUDA 20 MG TABS Take one by mouth daily LATUDA 20 MG TABS LURASIDONE HCL Inactive LISINOPRIL 20 MG TABS 1 tab po qd LISINOPRIL 20 MG TABS 481440 LISINOPRIL Inactive SAPHRIS 10 MG SUBL 1 [...] twice daily BACTRIM DS 800-160 MG TAB 195354 TRIMETHOPRIM-SULFAMETHOXAZOLE Inactive MULTIVITAMINS CAPS Take one by mouth daily MULTIVITAMINS CAPS MULTIPLE VITAMIN Inactive MELATONIN 3 MG CAPS 2 po q hs MELATONIN 3 MG CAPS 300920 MELATONIN Inactive KEFLEX 500 MG ORAL CAPS 1 cap QID by mouth KEFLEX 500 MG ORAL CAPS 465541 CEPHALEXIN Inactive CLINDAMYCIN HCL 150 MG CAPS 1 four times a day CLINDAMYCIN HCL 150 MG CAPS 043528 CLINDAMYCIN HCL Inactive DIFLUCAN 150 MG TAB 1 tablet by mouth daily DIFLUCAN 150 MG TAB 711549 FLUCONAZOLE Inactive PROZAC 20 MG CAP Take one by mouth daily PROZAC 20 MG CAP 509156 FLUOXETINE HCL Inactive IBUPROFEN 600 MG TAB 1 po TID PRN IBUPROFEN 600 MG TAB 315709 IBUPROFEN Inactive VYVANSE 40 MG CAPS 1 daily, VYVANSE 40 MG CAPS LISDEXAMFETAMINE DIMESYLATE Inactive TRAZODONE HCL 100 MG TAB take 1 at bedtime TRAZODONE HCL 100 MG TAB 351629 TRAZODONE HCL Inactive AMITRIPTYLINE HCL 100 MG TAB one at hs AMITRIPTYLINE HCL 100 MG TAB 231735 AMITRIPTYLINE HCL Inactive AMLODIPINE BESYLATE 5 MG TABS 1 tablet by mouth daily AMLODIPINE BESYLATE 5 MG TABS 143142 AMLODIPINE BESYLATE Inactive LATUDA 80 MG TABS Take one by mouth daily LATUDA 80 MG TABS LURASIDONE HCL Inactive SAPHRIS 5 MG SUBL 1 po bid SAPHRIS 5 MG SUBL ASENAPINE MALEATE Inactive PREDNISONE 20 MG TAB 2 tabs daily for 4 days, 1 tab daily for 4 days, 1/2 tab daily for 4 days PREDNISONE 20 MG TAB 439353 PREDNISONE Inactive AMBIEN 5 MG ORAL TABS 1 tab at bedtime AMBIEN 5 MG ORAL TABS 531445 ZOLPIDEM TARTRATE Inactive PROZAC 20 MG ORAL CAPS 1 tab daily PROZAC 20 MG ORAL CAPS 619697 FLUOXETINE HCL Inactive ABILIFY 15 MG ORAL TABS 1 tab daily ABILIFY 15 MG ORAL TABS 369054 ARIPIPRAZOLE Inactive METOPROLOL TARTRATE 50 MG TAB 1 po bid METOPROLOL TARTRATE 50 MG TAB 635006 METOPROLOL TARTRATE Inactive TRAMADOL HCL 50 MG TABS 1-2 po TID PRN Pain TRAMADOL HCL 50 MG TABS 987101 TRAMADOL HCL Inactive PIROXICAM 20 MG CAPS 1 cap po qd PRN Pain PIROXICAM 20 MG CAPS 203575 PIROXICAM Inactive MINIPRESS 2 MG CAPS 4 cap po at night MINIPRESS 2 MG CAPS 728802 PRAZOSIN HCL Inactive MIRALAX PACK 1 po qd PRN Constipation MIRALAX PACK 438849 POLYETHYLENE GLYCOL 3350 Inactive METOPROLOL TARTRATE 25 MG ORAL TABS 1/2 tablet twice daily for heart rate and blood pressure METOPROLOL TARTRATE 25 MG ORAL TABS 001509 METOPROLOL TARTRATE Inactive VALIUM 5 MG TAB Take 1-2 tablets daily VALIUM 5 MG TAB 511431 DIAZEPAM Inactive FLAGYL 500 MG TAB 1 tablet by mouth bid FLAGYL 500 MG TAB 895652 METRONIDAZOLE Inactive DICLOFENAC POTASSIUM TABS Take 1 tablet twice a day (pt. is not sure of the dose.) DICLOFENAC POTASSIUM TABS DICLOFENAC POTASSIUM TABS Inactive ZITHROMAX Z-EARNEST 250 MG TABS 2 today and then 1 daily for 4 days ZITHROMAX Z-EARNEST 250 MG TABS 9364315 AZITHROMYCIN Inactive PREDNISONE 20 MG TABS 2 daily for 5 days then 1 daily for 5 days PREDNISONE 20 MG TABS 531799 PREDNISONE Inactive PROAIR HFA 108 (90 BASE) MCG/ACT AERS 2 puffs four times a day as needed 2015 PROAIR HFA 108 (90 BASE) MCG/ACT AERS ALBUTEROL SULFATE Inactive HYDROCODONE-ACETAMINOPHEN 5-325 MG TABS 1 to 2 four times a day as needed for pain use until can be seen by specialist HYDROCODONE- ACETAMINOPHEN 5-325 MG TABS 981689 HYDROCODONE-ACETAMINOPHEN Inactive TESSALON PERLES 100 MG CAP 1 to 2 tablets by mouth 3 times daily as needed for cough TESSALON PERLES 100 MG CAP 708412 BENZONATATE Inactive CHANTIX STARTING MONTH EARNEST 0.5 [...] Pain 2015 DICLOFENAC SODIUM 50 MG TBEC 207282 DICLOFENAC SODIUM Inactive TOPAMAX 50 MG ORAL TABS 1 tab twice daily TOPAMAX 50 MG ORAL TABS 851383 TOPIRAMATE Inactive VIIBRYD 10 MG ORAL TABS Take 1 tablet once a day VIIBRYD 10 MG ORAL TABS VILAZODONE HCL Inactive LEVOFLOXACIN 500 MG ORAL TABS po daily LEVOFLOXACIN 500 MG ORAL TABS 563506 LEVOFLOXACIN Inactive METHYLPREDNISOLONE 4 MG ORAL TABS po daily METHYLPREDNISOLONE 4 MG ORAL TABS 418491 METHYLPREDNISOLONE Inactive OXYCODONE HCL ER 10 MG ORAL T12A 1/2 tab by mouth every 4 hours prn OXYCODONE HCL ER 10 MG ORAL T12A OXYCODONE HCL Inactive FLAGYL 500 MG TAB 1 tablet by mouth bid FLAGYL 500 MG TAB 620078 METRONIDAZOLE Inactive MONISTAT 7 COMBO PACK WOODROW 100 & 2 MG-% (9GM) VAG KIT 1 applicatorful per vagina q pm x 7 MONISTAT 7 COMBO PACK WOODROW 100 & 2 MG-% (9GM) VAG KIT MICONAZOLE NITRATE Inactive BACTRIM DS 800-160 MG TABS 1 twice a day BACTRIM DS 800-160 MG TABS 542780 SULFAMETHOXAZOLE-TRIMETHOPRIM Inactive TRAMADOL HCL 50 MG TABS 1/2-1 tab TID PRN TRAMADOL HCL 50 MG TABS 444791 TRAMADOL HCL Inactive ABILIFY MAINTENA 400 MG IM SUSR 400mg injection every 26 days ABILIFY MAINTENA 400 MG IM SUSR ARIPIPRAZOLE Inactive KLONOPIN 1 MG ORAL TABS 1 tab po TID KLONOPIN 1 MG ORAL TABS 328660 CLONAZEPAM Inactive ADVAIR DISKUS 250-50 MCG/DOSE INH AEPB 1 puff twice a day for asthma ADVAIR DISKUS 250-50 MCG/DOSE INH AEPB FLUTICASONE- SALMETEROL Inactive BENADRYL 25 MG CAP 4 po at bedtime for insomnia BENADRYL 25 MG CAP DIPHENHYDRAMINE HCL Inactive PREDNISONE 20 MG TABS 2 daily for 5 days then 1 daily for 5 days PREDNISONE 20 MG TABS 500712 PREDNISONE Inactive HYDROCODONE-ACETAMINOPHEN 5-325 MG ORAL TABS 1 tab two times a day HYDROCODONE-ACETAMINOPHEN 5-325 MG ORAL TABS 848671 HYDROCODONE-ACETAMINOPHEN Inactive ZITHROMAX Z-EARNEST 250 MG TABS 2 today and then 1 daily for 4 days ZITHROMAX Z-EARNEST 250 MG TABS 3042418 AZITHROMYCIN Inactive GUAIFENESIN-CODEINE 100-10 MG/5ML SYRP 5ml every 4 to 6 hours as needed for cough GUAIFENESIN-CODEINE 100-10 MG/5ML SYRP 136068 GUAIFENESIN-CODEINE Inactive HALOPERIDOL 10 MG ORAL TABS 1 tab q.d HALOPERIDOL 10 MG ORAL TABS 510633 HALOPERIDOL Inactive ASPIRIN 325 MG ORAL TABS 1 tab q.d ASPIRIN 325 MG ORAL TABS 263755 ASPIRIN Inactive FLUTICASONE PROPIONATE 50 MCG/ACT SUSP 2 sprays each nostril daily before bed. FLUTICASONE PROPIONATE 50 MCG/ACT SUSP 0255876 FLUTICASONE PROPIONATE Inactive ZOFRAN 4 MG TABS 1 po q6hr PRN Nausea ZOFRAN 4 MG TABS 934879 ONDANSETRON HCL Inactive KEFLEX 500 MG CAP 1 po qid KEFLEX 500 MG CAP 135163 CEPHALEXIN Inactive ACETAMINOPHEN-CODEINE 120-12 MG/5ML SOLN 5 ml by mouth every 4-6 hours if needed for cough ACETAMINOPHEN-CODEINE 120-12 MG/5ML SOLN 596333 ACETAMINOPHEN-CODEINE Inactive PREDNISONE 20 MG TAB 1 tablet daily x 4 days PREDNISONE 20 MG TAB 295064 PREDNISONE Inactive TROPICAMIDE 0.5 % OPHTH SOLN 1 drop PRN eye spasms TROPICAMIDE 0.5 % OPHTH SOLN 739613 TROPICAMIDE Inactive LEVAQUIN 500 MG TABS 1 daily for infection LEVAQUIN 500 MG TABS 884843 LEVOFLOXACIN Inactive PREDNISONE 10 MG TABS 2 daily for 5 days then 1 daily for 5 days PREDNISONE 10 MG TABS 142325 PREDNISONE Inactive EQ NICOTINE 21 MG/24HR TRANS [...] twice a day CEFDINIR 300 MG CAPS 548038 CEFDINIR Inactive PREDNISONE 20 MG TAB 2 tabs daily for 3 days, 1 tab daily for 3 days, 1/2 tab daily for 2 days PREDNISONE 20 MG TAB 398609 PREDNISONE Inactive BACTRIM DS 800-160 MG TABS 1 po BID x 7 days BACTRIM DS 800-160 MG TABS 19820521 SULFAMETHOXAZOLE-TRIMETHOPRIM Inactive DIFLUCAN 150 MG TABS 1 pill every other day x 2 doses DIFLUCAN 150 MG TABS 129733 FLUCONAZOLE Inactive BACTRIM DS 800-160 MG TABS 1 pill by mouth twice daily BACTRIM DS 800-160 MG TABS [id number] SULFAMETHOXAZOLE-TRIMETHOPRIM Inactive KEFLEX 500 MG CAP 1 po TID x 10 days KEFLEX 500 MG CAP [id number] CEPHALEXIN Inactive Advance Directives Directive Description Start [...] % 11.0-15.0 platelet count 443 THOUSAND/UL 10*3/mm3 122-959 3187/03/01 mean platelet volume 8.2 fL 7.5-12.5 leukocyte [...] % 11.0-15.0 platelet count 349 THOUSAND/UL 10*3/mm3 723-380 2677/04/12 mean platelet volume 8.4 fL 7.5-12.5 Lab [...] 369 10^3/MM^3 10*3/mm3 142-424 Lab Report: Chlamydia/GC [id number] - Lab chlamydia DNA probe NOT DETECTED NOT DETECTED Lab Report: Chlamydia/GC [id number] - Microbiology Neisseria gonorrhoeae DNA probe NOT DETECTED NOT DETECTED Lab Report: Chlamydia/GC [id number], Urinalysis, Complete, with Reflex ... - Lab chlamydia DNA probe NOT DETECTED NOT DETECTED Lab Report: Chlamydia/GC APTIMA/[id number], Urinalysis, Complete, with Reflex ... - Microbiology Neisseria gonorrhoeae DNA probe NOT DETECTED NOT DETECTED Lab Report: Chlamydia/GC APTIMA/[id number], Urinalysis, Complete, with Reflex ... - Urinalysis microalbumin/total urine volume 2 mg/L Units converted. See lab report for original value. microalbumin/creatinine ratio, urine 9 MCG/MG CREAT mg/L <30 Lab Report: Comp. Metabolic Panel - Chemistry sodium, serum 140 mmol/L [id number] 2157/08/08 carbon dioxide, venous blood 33.7 mmol/L 21.0-32.0 [...] 5.0-8.5 Encounters Code Encounter Date Provider Facility CPT-51387 Level 3 Est. Patient 15:55:20 CDT Suzan Boo [facility] CPT-52539 Level 4 Est. Patient 10:49:34 CDT Suzan Boo [facility] CPT-03169 Level 3 Est. Patient 10:00:25 CDT Suzan Boo [facility] CPT-53840 Level 3 Est. Patient 10:29:30 CDT Suzan Boo [facility] CPT-99263 Level 3 Est. Patient 11:04:38 CDT Renzo Thornton [facility] CPT-94535 Level 3 Est. Patient 11:15:58 [employer] Renzo Barajas [facility]-09019 Level 3 Est. Patient 15:28:23 [employer] Suzan Boo [facility]-82252 Level 4 Est. Patient 10:20:54 [employer] Suzan Boo [facility] CPT-90247 Level 3 Est. Patient 11:47:37 [employer] Ahmet Carbajal MD [facility]-98456 Level 3 Est. Patient 10:40:11 [employer] Ahmet Carbajal MD [facility] CPT-24758 Level 3 Est. Patient 15:07:06 [employer] Neeraj Collins MD [facility] CPT-04235 Level 4 Est. Patient 14:45:00 [employer] Ahmet Carbajal MD [facility] CPT-74662 Level 3 Est. Patient 13:59:59 CDT Luigi Martínez [facility] CPT-25178 Level 3 Est. Patient 18:18:53 CDT Neeraj Collins MD [facility]-58252 Level 3 Est. Patient 15:50:44 CDT Vishal Hui MD [facility] CPT-11253 Level 3 Est. Patient 11:36:17 CDT Ahmet Carbajal MD [facility] CPT-14343 Level 3 Est. Patient 13:29:16 CDT Vishal Hui MD [facility] CPT-29363 Level 3 Est. Patient 14:27:52 CDT Neeraj Collins MD [facility] CPT-47891 Level 3 Est. Patient 08:56:03 CDT Luigi Martínez [facility] CPT-44208 Level 4 Est. Patient 12:11:48 CDT Fbaiola Johnson [facility] CPT-96449 Level 3 New Patient 16:53:37 CDT Albert Caldera MD [facility] CPT-80419 Level 3 Est. Patient 11:25:49 CDT Renzo Thornton DO [facility] CPT-22956 Level 3 Est. Patient 15:22:01 CDT Ahmet Carbajal MD [facility] CPT-35936 Level 4 Est. Patient 09:00:51 [employer] Vishal Hui MD [facility] CPT-45061 Level 3 Est. Patient 11:37:33 [employer] Vishal Hui MD [facility] CPT-86066 Level 3 Est. Patient 08:41:09 [employer] Vishal Hui MD [facility] CPT-86985 Level 4 Est. Patient 10:19:35 [employer] Vishal Hui MD [facility] CPT-44294 Level 3 Est. Patient 13:35:45 CDT Vishal Hui MD [facility] CPT-52037 Level 4 Est. Patient 10:08:37 CDT Vishal Hui MD [facility] CPT-64948 Level 3 Est. Patient 11:22:10 CDT Vishal Hui MD [facility] CPT-78520 Level 3 Est. Patient 11:03:32 CDT Sahara Rodriguez MD, PhD [facility] CPT-47612 Level 3 Est. Patient 09:41:35 CDT Vishal Hui MD [facility] CPT-24251 Level 3 Est. Patient 12:00:41 CDT Neeraj Collins MD [facility] CPT-77425 Level 3 Est. Patient 09:16:24 CDT Vishal Hui MD [facility] CPT-55022 Level 4 Est. Patient 13:59:09 CDT Neeraj Collins MD [facility]-71890 Level 3 Est. Patient 15:19:43 CDT Renzo Thornton DO [facility] CPT-99132 Level 3 Est. Patient 18:10:26 CDT Sahara Rodriguez MD [facility]-32720 Level 3 Est. Patient 14:49:50 CDT Vishal Hui MD [facility]-59775 Level 4 Est. Patient 18:41:46 CDT Neeraj Collins MD [facility]-97294 Level 4 Est. Patient 09:18:38 [employer] Vishal Hui MD [facility] CPT-87575 Level 3 Est. Patient 14:43:55 [employer] Vishal Hui MD [facility] CPT-07889 Level 3 Est. Patient 15:26:33 [employer] Sahara Rodriguez MD PhD [facility]-23694 Level 3 Est. Patient 10:32:14 [employer] Vishal Hui MD [facility] CPT-91275 Level 3 Est. Patient 15:12:52 [employer] Vishal Hui MD [facility] CPT-90215 Level 4 Est. Patient 09:19:27 CDT Vishal Hui MD [facility]-40688 Level 3 Est. Patient 15:53:00 CDT Renzo Thornton [facility]-58447 Level 3 Est. Patient 15:50:30 CDT Renzo Thornton DO [facility] CPT-83814 Level 3 Est. Patient 16:55:24 CDT Vishal Hui MD [facility] Procedures Code Procedure Name Date Entry Date Standard Description CPT-77750 EKG Trac and Interp - XRAY USE ONLY 15:59:30 CDT 09/13 CPT-15227 Chest 1V Frontal - XRAY USE ONLY 15:59:30 CDT CPT-20977 Venipuncture Draw Fee 15:44:02 CDT CPT-07989 Venipuncture Draw Fee 08:41:12 CDT CPT-42230 Abd compl w upright - XRAY USE ONLY 10:27:59 CDT 06/28 CPT-70351 Smoking Cessation counseling 11:15:58 [employer] CPT-G0439 [facility] Annual Wellness Exam 09:30:58 [employer] CPT-84584 TSH - LAB USE ONLY 08:50:26 [employer] CPT-38286 CBC - LAB USE ONLY 08:50:26 [employer] CPT-90855 Venipuncture Draw Fee 08:50:26 [employer] CPT-54854 Abx/Therapy Injection 17:34:30 [employer] CPT-70289 Nexplanon Removal with Reinsertion 14:09:32 CDT CPT-J7307 Nexplanon (Implant) 14:09:32 CDT CPT-OV Office Visit 14:09:32 CDT CPT-97384 UA w micro - LAB USE ONLY 16:21:13 CDT CPT-82848 Wet Mount - LAB USE ONLY 16:21:13 CDT CPT-99188 First Vx - Ix admin for Medicare patients 14:37:47 CDT CPT-08317 Fluzone Preservative Free Intramuscular Suspension 14:37 :47 CDT CPT-04918 Abx/Therapy Injection 13:54:22 CDT CPT-39776 Abx/Therapy Injection 08:47:09 CDT CPT-78471 Abx/Therapy Injection 13:29:56 CDT CPT-11458 Abx/Therapy Injection 08:36:16 CDT CPT-18343 Wet Mount - LAB USE ONLY 17:44:58 CDT CPT-23615 UA w micro - LAB USE ONLY 17:44:58 CDT CPT-50822 CMP - LAB USE ONLY 17:44:58 CDT CPT-18726 Venipuncture Draw Fee 17:44:58 CDT CPT-90159 Cervical Min 4V - XRAY USE ONLY 09:01:40 CDT CPT-34946 Chest 2V Frontal and Lat - XRAY USE ONLY 11:06:31 CDT CPT-06924 EKG Trac and Interp - XRAY USE ONLY 11:31:43 CDT 08/26 CPT-J3420 Vitamin B12 1000mcg (Cyanocobalamin) 08:10:26 [employer] 04/12 CPT-85206 Abx/Therapy Injection 08:10:26 [employer] CPT-G0438 Initial Annual Wellness Exam 19:01:01 [employer] CPT-J3420 Vitamin B12 1000mcg (Cyanocobalamin) 16:57:46 CDT 08/14 CPT-45716 Recombivax HB Injection Suspension 5 MCG/0.5ML 08:37:50 [employer] CPT-87442 Immunization Single Admin 08:37:50 [employer] CPT-J3420 Vitamin B12 1000mcg (Cyanocobalamin) 08:32:16 [employer] 03/11 CPT-31563 Abx/Therapy Injection 08:32:16 [employer] CPT-79339 Chest 2V Frontal and Lat 11:46:38 [employer] CPT-96743 Venipuncture Draw Fee 09:12:45 [employer] CPT-J3420 Vitamin B12 1000mcg (Cyanocobalamin) 08:50:15 [employer] 02/08 CPT-15625 Abx/Therapy Injection 08:50:15 [employer] CPT-Cryo Cryotherapy 10:19:35 [employer] CPT-000 Give Appropriate Flu Vaccine 09:22:16 CDT CPT-J3420 Vitamin B12 1000mcg (Cyanocobalamin) 19:08:57 CDT 01/11 CPT-42653 Abx/Therapy Injection 19:08:57 CDT CPT-J3420 Vitamin B12 1000mcg (Cyanocobalamin) 08:19:08 CDT 12/11 CPT-96448 Abx/Therapy Injection 08:19:08 CDT CPT-J3420 Vitamin B12 1000mcg (Cyanocobalamin) 14:48:00 CDT 11/09 CPT-92877 Abx/Therapy Injection 14:47:59 CDT CPT-J3420 Vitamin B12 1000mcg (Cyanocobalamin) 08:34:04 CDT 10/09 CPT-58842 Abx/Therapy Injection 08:34:04 CDT CPT-J3420 Vitamin B12 1000mcg (Cyanocobalamin) 09:18:52 CDT 09/11 CPT-08688 Abx/Therapy Injection 09:18:52 CDT CPT-J3420 Vitamin B12 1000mcg (Cyanocobalamin) 08:35:44 CDT 09/04 CPT-36621 Abx/Therapy Injection 08:35:44 CDT CPT-94934 Immunization Single Admin 11:07:16 CDT CPT-93997 Hepatitis B adult IM 11:07:16 CDT CPT-J3420 Vitamin B12 1000mcg (Cyanocobalamin) 11:00:49 CDT 08/28 CPT-J1040 Depo Medrol 80 mg (Methyl Prednisolone Acetate) 11:00: 49 CDT CPT-46636 Abx/Therapy Injection 11:00:49 CDT CPT-J1040 Depo Medrol 80 mg (Methyl Prednisolone Acetate) 09:16: 23 CDT CPT-J3420 Vitamin B12 1000mcg (Cyanocobalamin) 08:27:05 CDT 08/20 CPT-40127 Abx/Therapy Injection 08:27:05 CDT CPT-27345 Recombivax HB Injection Suspension 5 MCG/0.5ML 10:00:41 CDT CPT-99971 Administration single or combination vaccine inc oral 10 :00:41 CDT CPT-56526 Sono transvag pelvis non OB uterus ovaries cervix 16:36: 57 CDT CPT-51725 LS spine comp w obliq 09:50:55 [employer] CPT-31034 Abd compl w upright 09:50:55 [employer] CPT-J1100 Decadron 4mg (Dexamethasone) 15:51:24 [employer] CPT-J1030 Depo Medrol 40 mg (Methyl Prednisolone Acetate) 15:51: 24 [employer] CPT-14759 Abx/Therapy Injection 15:51:24 [employer] CPT-J1100 Decadron 4mg (Dexamethasone) 15:26:33 [employer] CPT-J1030 Depo Medrol 40 mg (Methyl Prednisolone Acetate) 15:26: 33 [employer] CPT-64150 Sono retroperitoneal complete kidneys and bladder 17:15: 30 CDT CPT-25214 Abd compl w upright 16:09:25 CDT CPT-J1100 Decadron 8mg (Dexamethasone) 17:07:57 CDT CPT-57309 Abx/Therapy Injection 17:07:57 CDT CPT-J1100 Decadron 8mg (Dexamethasone) 16:55:24 CDT CPT-07997 Chest 2V Frontal and Lat 16:32:44 CDT
--- OUTSIDE RECORDS SUMMARY | 2016-11-05 00:01 | XMS REPORT | Clinical Summary ---
Author Author Admin, Cover[employer] Organization [facility] Address Unknown Phone Unavailable Allergies, Adverse [...] Back pain, lumbar, with radiculopathy 724.4 Active Visahl Hui MD Thoracic or lumbosacral neuritis or [...] Shortness of breath 786.05 Active Fabiola Johnson ARCHITECTURE TECHNICIAN Shortness of breath Nocturnal hypoxia 799.02 Active Fabiola Johnson ARCHITECTURE TECHNICIAN Hypoxemia Neck pain 723.1 Active Luigi Martínez ARCHITECTURE TECHNICIAN Cervicalgia Vaginal discharge 623.5 Active Neeraj Collins [...] can be seen by specialist HYDROCODONE- ACETAMINOPHEN 34697029229 No Longer Active Vishal Hui MD Active PROAIR HFA 108 (90 BASE) MCG/ACT AERS 2 puffs four times a day as needed 2015 ALBUTEROL SULFATE 86067371819 No Longer Active Vishal Hui MD Active PREDNISONE 20 MG TABS 2 daily for 5 days then 1 daily for 5 days PREDNISONE 08647857837 No Longer Active Vishal Hui MD Active ZITHROMAX Z-EARNEST 250 MG TABS 2 today and then 1 daily for 4 days AZITHROMYCIN 58580782369 No Longer Active Vishal Hui MD Active DICLOFENAC SODIUM 50 MG TBEC 1 tablet by mouth four times daily PRN Pain 2015 DICLOFENAC SODIUM 27369680944 Active Vishal Hui MD Active DICLOFENAC POTASSIUM TABS Take 1 tablet twice a day (pt. is not sure of the dose.) DICLOFENAC POTASSIUM TABS 52217902486 No Longer Active Vishal Hui MD Active VERAPAMIL HCL ER 120 MG ORAL CR-TABS Take 1 tablet by mouth twice a day. VERAPAMIL HCL 08580631792 Active Vishal Hui MD Active FLAGYL 500 MG TAB 1 tablet by mouth bid METRONIDAZOLE 15777268450 No Longer Active Vishal Hui MD Active ABILIFCielo MAINTENA 400 MG IM SUSR 400mg injection every 28 days ARIPIPRAZOLE 29624615882 Active Silvia Wilian Casey LPN Active FLUTICASONE PROPIONATE 50 MCG/ACT SUSP 2 sprays each nostril daily before bed. FLUTICASONE PROPIONATE 47312746539 Active Fabiola Johnson APRN Active ADZENYS XR-ODT 6.3 MG ORAL TBED 1 tab po daily for ADHD AMPHETAMINE 45279864095 Active Fabiola Johnson APRN Active BENADRYL 25 MG CAP 4 po at bedtime for insomnia DIPHENHYDRAMINE HCL 33545296859 Active Fabiola Johnson APRN Active KLONOPIN 1 MG ORAL TABS 1 tab po TID CLONAZEPAM 03427408261 Active Fabiola Johnson APRN Active VALIUM 5 MG TAB Take 1-2 tablets daily DIAZEPAM 18634828695 No Longer Active Fabiola Johnson APRN Active METOPROLOL TARTRATE 25 MG ORAL TABS 1/2 tablet twice daily for heart rate and blood pressure METOPROLOL TARTRATE 43524592601 No Longer Active Fabiola Johnson APRN Active MIRALAX ORAL POWD 17GMS DAILY IN WATER POLYETHYLENE GLYCOL 3350 69432707751 Active Vishal Hui MD Active VIIBRYD 10 MG ORAL TABS Take 1 tablet once a day VILAZODONE HCL 48117775368 Active Ahmet Carbajal MD Active MIRALAX PACK 1 po qd PRN Constipation POLYETHYLENE GLYCOL 3350 52087983417 No Longer Active Ahmet Carbajal MD Active MINIPRESS 2 MG CAPS 4 cap po at night PRAZOSIN HCL 53254650724 No Longer Active Ahmet Carbajal MD Active PIROXICAM 20 MG CAPS 1 cap po qd PRN Pain PIROXICAM 26385751874 No Longer Active Ahmet Carbajal MD Active TRAMADOL HCL 50 MG TABS 1-2 po TID PRN Pain TRAMADOL HCL 27286530559 No Longer Active Ahmet Carbajal MD Active METOPROLOL TARTRATE 50 MG TAB 1 po bid METOPROLOL TARTRATE 00671253797 No Longer Active Ahmet Carbajal MD Active ABILIFY 15 MG ORAL TABS 1 tab daily ARIPIPRAZOLE 33114791133 No Longer Active Ahmet Carbajal MD Active PROZAC 20 MG ORAL CAPS 1 tab daily FLUOXETINE HCL 65670558701 No Longer Active Ahmet Carbajal MD Active AMBIEN 5 MG ORAL TABS 1 tab at bedtime ZOLPIDEM TARTRATE 01179280875 No Longer Active Ahmet Carbajal MD Active PREDNISONE 20 MG TAB 2 tabs daily for 4 days, 1 tab daily for 4 days, 1/2 tab daily for 4 days PREDNISONE 82150405509 No Longer Active Ahmet Carbajal MD Active KEFLEX 500 MG CAP 1 po TID x 10 days CEPHALEXIN 72189156970 No Longer Active Vishal Hui MD Active IMITREX 50 MG ORAL TABS 1/2 tab every 6 hours prn SUMATRIPTAN SUCCINATE 31323054640 Active Jillina Mauricio NORIEGA Active TOPAMAX 50 MG ORAL TABS 1 tab twice daily TOPIRAMATE 31916865636 Active Vishal Hui MD Active SAPHRIS 5 MG SUBL 1 po bid ASENAPINE MALEATE 69079937244 No Longer Active Pacollina Mauricio NORIEGA Active LATUDA 80 MG TABS Take one by mouth daily LURASIDONE HCL 07993204621 No Longer Active Jillina Fralebron ARCHITECTURE TECHNICIAN Active AMLODIPINE BESYLATE 5 MG TABS 1 tablet by mouth daily AMLODIPINE BESYLATE 94391226126 No Longer Active Jillina Fralebron ARCHITECTURE TECHNICIAN Active AMITRIPTYLINE HCL 100 MG TAB one at hs AMITRIPTYLINE HCL 65262135405 No Longer Active Vishal Hui MD Active TRAZODONE HCL 100 MG TAB take 1 at bedtime TRAZODONE HCL 06323063125 No Longer Active Vishal Hui MD Active VYVANSE 40 MG CAPS 1 daily, LISDEXAMFETAMINE DIMESYLATE 80652625688 No Longer Active Vishal Hui MD Active IBUPROFEN 600 MG TAB 1 po TID PRN IBUPROFEN 54058385685 No Longer Active iVshal Hui MD Active PROZAC 20 MG CAP Take one by mouth daily FLUOXETINE HCL 46300698218 No Longer Active Vishal Hui MD Active ZOFRAN 4 MG TABS 1 po q6hr PRN Nausea ONDANSETRON HCL Active Vishal Hui MD Active BACTRIM DS 800-160 MG TABS 1 pill by mouth twice daily SULFAMETHOXAZOLE-TRIMETHOPRIM 35360400527 No Longer Active Sahara Rodriguez MD PhD Active DIFLUCAN 150 MG TAB 1 tablet by mouth daily FLUCONAZOLE 81040940899 No Longer Active Vishal Hui MD Active TIZANIDINE HCL 4 MG TABS 1 po q6hr PRN Muscle Spasm/Back Pain TIZANIDINE HCL 12746389852 Active Vishal Hui MD Active CLINDAMYCIN HCL 150 MG CAPS 1 four times a day CLINDAMYCIN HCL 09707169480 No Longer Active Neeraj Collins MD Active KEFLEX 500 MG ORAL CAPS 1 cap QID by mouth CEPHALEXIN 43948029136 No Longer Active Neeraj Collins MD Active DIFLUCAN 150 MG TABS 1 pill every other day x 2 doses FLUCONAZOLE 14006813671 No Longer Active Sahara Rodriguez MD PhD Active MELATONIN 3 MG CAPS 2 po q hs MELATONIN 76212619320 No Longer Active Sahara Rodriguez MD PhD Active MULTIVITAMINS CAPS Take one by mouth daily MULTIPLE VITAMIN 46073611055 No Longer Active Sahara Rodriguez MD PhD Active BACTRIM DS 800-160 MG TAB 1 tab by mouth twice daily TRIMETHOPRIM-SULFAMETHOXAZOLE 53374783769 No Longer Active Sahara Rodriguez MD PhD Active [facility] PROBIOTIC ORAL CHEW 2 daily po PROBIOTIC PRODUCT 17882192625 No Longer Active Sahara Rodriguez MD PhD Active BACTRIM DS 800-160 MG TABS 1 po BID x 7 days SULFAMETHOXAZOLE-TRIMETHOPRIM 29210711748 No Longer Active Vishal Hui MD Active CHANTIX STARTING MONTH EARNEST 0.5 MG X 11 & 1 MG X 42 TABS 0.5mg daily for 3 days , then 0.5mg BID for 4 days, then 1mg BID VARENICLINE TARTRATE 24123766678 No Longer Active TAMARA Gray Active VERAPAMIL HCL CR 120 MG TAB CR 1 po bid VERAPAMIL HCL 49497024107 No Longer Active Vishal Hui MD Active METOPROLOL SUCCINATE 50 MG TB24 1 tablet by mouth daily METOPROLOL SUCCINATE 49445460739 No Longer Active Vishal Hui MD Active SAPHRIS 10 MG SUBL 1 tab po bid ASENAPINE MALEATE 64106941468 No Longer Active Vishal Hui MD Active LISINOPRIL 20 MG TABS 1 tab po qd LISINOPRIL 32409862596 No Longer Active Vishal Hui MD Active LATUDA 20 MG TABS Take one by mouth daily LURASIDONE HCL 33390426028 No Longer Active Vishal Hui MD Active TRAZODONE HCL 50 MG TABS 1/2 tab po qd prn for anxiety TRAZODONE HCL 11606552461 No Longer Active Vishal Hui MD Active OMEPRAZOLE 20 MG TBEC 1 po q a.m. 30min prior to first food intake OMEPRAZOLE 19849553667 Active Vishal Hui MD Active RANITIDINE HCL 150 MG CAPS 1 twice a day RANITIDINE HCL 94916928272 Active Luigi Martínez ARCHITECTURE TECHNICIAN Active LINZESS 290 MCG CAPS Take one by mouth daily LINACLOTIDE 34991889708 No Longer Active Vishal Hui MD Active SAPHRIS 5 MG SUBL 1 tab po qd ASENAPINE MALEATE 30342965033 No Longer Active Vishal Hui MD Active ZALEPLON 10 MG CAPS 1 cap po every other night ZALEPLON 44053120069 No Longer Active Vishal Hui MD Active LYRICA 50 MG CAPS 1 tab po TID PREGABALIN 74900202121 No Longer Active Vishal Hui MD Active LORATADINE 10 MG TABS 1 tab po qd LORATADINE 92369401409 No Longer Active Vishal Hui MD Active VERAPAMIL HCL ER 180 MG CR-TABS 1 tab po bid VERAPAMIL HCL 21291457532 No Longer Active Vishal Hui MD Active MIRALAX POWD 1 capfull once daily POLYETHYLENE GLYCOL 3350 79083538084 No Longer Active Vishal Hui MD Active PREDNISONE 20 MG TABS 1 tab po qd PREDNISONE 51220872289 No Longer Active Renzo Thornton DO Active LEVOFLOXACIN 500 MG TABS 1 tab po qd LEVOFLOXACIN 38277568463 No Longer Active Rnezo Thornton DO Active BUSPIRONE HCL 15 MG TABS 1 tab po TID BUSPIRONE HCL 65311153891 No Longer Active Renzo Thornton DO Active BENZTROPINE MESYLATE 1 MG TABS 1 tab po qd BENZTROPINE MESYLATE 39244779188 No Longer Active Renzo Thornton DO Active ATENOLOL 25 MG TABS 1 tab po qd ATENOLOL 35390708669 No Longer Active Renzo Thornton DO Active ESCITALOPRAM OXALATE 20 MG TABS 1 tab po qd ESCITALOPRAM OXALATE 43357044739 No Longer Active Renzo Thornton DO Active ADVAIR DISKUS 250-50 MCG/DOSE AEPB 1 puff BID FLUTICASONE-SALMETEROL 55488416034 No Longer Active Renzo Thornton DO Active PREDNISONE 20 MG TAB 2 tabs daily for 3 days, 1 tab daily for 3 days, 1/2 tab daily for 2 days PREDNISONE 66848050584 No Longer Active Vishal Hui MD Active CEFDINIR 300 MG CAPS by mouth twice a day CEFDINIR 24770626746 No Longer Active Vishal Hui MD Active LANSOPRAZOLE 30 MG CPDR 1 cap po qd LANSOPRAZOLE 25967768308 No Longer Active Vishal Hui MD Active BACLOFEN 20 MG TABS 1 tab po tid BACLOFEN 37296892577 No Longer Active Vishal Hui MD Active ADVAIR DISKUS 250-50 MCG/DOSE AEPB 1 puff BID ADVAIR DISKUS 250-50 MCG/DOSE AEPB FLUTICASONE-SALMETEROL Inactive ESCITALOPRAM OXALATE 20 MG TABS 1 tab po qd ESCITALOPRAM OXALATE 20 MG TABS 016170 ESCITALOPRAM OXALATE Inactive ATENOLOL 25 MG TABS 1 tab po qd ATENOLOL 25 MG TABS 664297 ATENOLOL Inactive BENZTROPINE MESYLATE 1 MG TABS 1 tab po qd BENZTROPINE MESYLATE 1 MG TABS 162378 BENZTROPINE MESYLATE Inactive BUSPIRONE HCL 15 MG TABS 1 tab po TID BUSPIRONE HCL 15 MG TABS 068265 BUSPIRONE HCL Inactive LEVOFLOXACIN 500 MG TABS 1 tab po qd LEVOFLOXACIN 500 MG TABS 857125 LEVOFLOXACIN Inactive PREDNISONE 20 MG TABS 1 tab po qd PREDNISONE 20 MG TABS 735747 PREDNISONE Inactive MIRALAX POWD 1 capfull once daily MIRALAX POWD 791510 POLYETHYLENE GLYCOL 3350 Inactive VERAPAMIL HCL ER 180 MG CR-TABS 1 tab po bid VERAPAMIL HCL ER 180 MG CR-TABS VERAPAMIL HCL Inactive LORATADINE 10 MG TABS 1 tab po qd LORATADINE 10 MG TABS 036588 LORATADINE Inactive LYRICA 50 MG CAPS 1 tab po TID LYRICA 50 MG CAPS PREGABALIN Inactive ZALEPLON 10 MG CAPS 1 cap po every other night ZALEPLON 10 MG CAPS 140803 ZALEPLON Inactive SAPHRIS 5 MG SUBL 1 tab po qd SAPHRIS 5 MG SUBL ASENAPINE MALEATE Inactive TRAZODONE HCL 50 MG TABS 1/2 tab po qd prn for anxiety TRAZODONE HCL 50 MG TABS 495917 TRAZODONE HCL Inactive LATUDA 20 MG TABS Take one by mouth daily LATUDA 20 MG TABS LURASIDONE HCL Inactive LISINOPRIL 20 MG TABS 1 tab po qd LISINOPRIL 20 MG TABS 632738 LISINOPRIL Inactive SAPHRIS 10 MG SUBL 1 [...] twice daily BACTRIM DS 800-160 MG TAB 396876 TRIMETHOPRIM-SULFAMETHOXAZOLE Inactive MULTIVITAMINS CAPS Take one by mouth daily MULTIVITAMINS CAPS MULTIPLE VITAMIN Inactive MELATONIN 3 MG CAPS 2 po q hs MELATONIN 3 MG CAPS 863500 MELATONIN Inactive KEFLEX 500 MG ORAL CAPS 1 cap QID by mouth KEFLEX 500 MG ORAL CAPS 851333 CEPHALEXIN Inactive CLINDAMYCIN HCL 150 MG CAPS 1 four times a day CLINDAMYCIN HCL 150 MG CAPS 066686 CLINDAMYCIN HCL Inactive DIFLUCAN 150 MG TAB 1 tablet by mouth daily DIFLUCAN 150 MG TAB 682765 FLUCONAZOLE Inactive PROZAC 20 MG CAP Take one by mouth daily PROZAC 20 MG CAP 681789 FLUOXETINE HCL Inactive IBUPROFEN 600 MG TAB 1 po TID PRN IBUPROFEN 600 MG TAB 386226 IBUPROFEN Inactive VYVANSE 40 MG CAPS 1 daily, VYVANSE 40 MG CAPS LISDEXAMFETAMINE DIMESYLATE Inactive TRAZODONE HCL 100 MG TAB take 1 at bedtime TRAZODONE HCL 100 MG TAB 974758 TRAZODONE HCL Inactive AMITRIPTYLINE HCL 100 MG TAB one at hs AMITRIPTYLINE HCL 100 MG TAB 068183 AMITRIPTYLINE HCL Inactive AMLODIPINE BESYLATE 5 MG TABS 1 tablet by mouth daily AMLODIPINE BESYLATE 5 MG TABS 525738 AMLODIPINE BESYLATE Inactive LATUDA 80 MG TABS Take one by mouth daily LATUDA 80 MG TABS LURASIDONE HCL Inactive SAPHRIS 5 MG SUBL 1 po bid SAPHRIS 5 MG SUBL ASENAPINE MALEATE Inactive PREDNISONE 20 MG TAB 2 tabs daily for 4 days, 1 tab daily for 4 days, 1/2 tab daily for 4 days PREDNISONE 20 MG TAB 730250 PREDNISONE Inactive AMBIEN 5 MG ORAL TABS 1 tab at bedtime AMBIEN 5 MG ORAL TABS 197337 ZOLPIDEM TARTRATE Inactive PROZAC 20 MG ORAL CAPS 1 tab daily PROZAC 20 MG ORAL CAPS 724394 FLUOXETINE HCL Inactive ABILIFY 15 MG ORAL TABS 1 tab daily ABILIFY 15 MG ORAL TABS 144398 ARIPIPRAZOLE Inactive METOPROLOL TARTRATE 50 MG TAB 1 po bid METOPROLOL TARTRATE 50 MG TAB 132356 METOPROLOL TARTRATE Inactive TRAMADOL HCL 50 MG TABS 1-2 po TID PRN Pain TRAMADOL HCL 50 MG TABS 534319 TRAMADOL HCL Inactive PIROXICAM 20 MG CAPS 1 cap po qd PRN Pain PIROXICAM 20 MG CAPS 391231 PIROXICAM Inactive MINIPRESS 2 MG CAPS 4 cap po at night MINIPRESS 2 MG CAPS 812760 PRAZOSIN HCL Inactive MIRALAX PACK 1 po qd PRN Constipation MIRALAX PACK 654097 POLYETHYLENE GLYCOL 3350 Inactive METOPROLOL TARTRATE 25 MG ORAL TABS 1/2 tablet twice daily for heart rate and blood pressure METOPROLOL TARTRATE 25 MG ORAL TABS 361347 METOPROLOL TARTRATE Inactive VALIUM 5 MG TAB Take 1-2 tablets daily VALIUM 5 MG TAB 495378 DIAZEPAM Inactive FLAGYL 500 MG TAB 1 tablet by mouth bid FLAGYL 500 MG TAB 985360 METRONIDAZOLE Inactive DICLOFENAC POTASSIUM TABS Take 1 tablet twice a day (pt. is not sure of the dose.) DICLOFENAC POTASSIUM TABS DICLOFENAC POTASSIUM TABS Inactive ZITHROMAX Z-EARNEST 250 MG TABS 2 today and then 1 daily for 4 days ZITHROMAX Z-EARNEST 250 MG TABS 7128600 AZITHROMYCIN Inactive PREDNISONE 20 MG TABS 2 daily for 5 days then 1 daily for 5 days PREDNISONE 20 MG TABS 925572 PREDNISONE Inactive PROAIR HFA 108 (90 BASE) MCG/ACT AERS 2 puffs four times a day as needed 2015 PROAIR HFA 108 (90 BASE) MCG/ACT AERS ALBUTEROL SULFATE Inactive HYDROCODONE-ACETAMINOPHEN 5-325 MG TABS 1 to 2 four times a day as needed for pain use until can be seen by specialist HYDROCODONE- ACETAMINOPHEN 5-325 MG TABS 263199 HYDROCODONE-ACETAMINOPHEN Inactive CEFDINIR 300 MG CAPS by mouth twice a day CEFDINIR 300 MG CAPS 939944 CEFDINIR Inactive PREDNISONE 20 MG TAB 2 tabs daily for 3 days, 1 tab daily for 3 days, 1/2 tab daily for 2 days PREDNISONE 20 MG TAB 815686 PREDNISONE Inactive BACTRIM DS 800-160 MG TABS 1 po BID x 7 days BACTRIM DS 800-160 MG TABS 813686 SULFAMETHOXAZOLE-TRIMETHOPRIM Inactive DIFLUCAN 150 MG TABS 1 pill every other day x 2 doses DIFLUCAN 150 MG TABS 809942 FLUCONAZOLE Inactive BACTRIM DS 800-160 MG TABS 1 pill by mouth twice daily BACTRIM DS 800-160 MG TABS 572519 SULFAMETHOXAZOLE-TRIMETHOPRIM Inactive KEFLEX 500 MG CAP 1 po TID x 10 days KEFLEX 500 MG CAP 542701 CEPHALEXIN Inactive Advance Directives Directive Description Start [...] % 11.6-14.8 platelet count 394 10^3/MM^3 10*3/mm3 428-839 0250/01/11 leukocyte count, blood 13.8 10^3/MM^3 10*3/mm3 4.6-10.2 [...] Panel - Chemistry sodium, serum 139 mmol/L 451-229 3489/12/03 carbon dioxide, venous blood 28.5 mmol/L 21.0-32.0 [...] 5.5 % 4.3-6.0 cholesterol, serum 159 mg/dL 997-573 4462/12/03 triglyceride, serum, fasting 118 mg/dL 30-200 HDL [...] Panel - Chemistry sodium, serum 139 mmol/L 869-619 2979/12/22 carbon dioxide, venous blood 26.8 mmol/L 21.0-32.0 potassium, serum 4.2 mmol/L 3.5-5.2 chloride, serum 103 mmol/L 98-107 blood glucose 115 mg/dL 65-110 urea nitrogen, blood 20 mg/dL 7-18 creatinine, serum 0.90 mg/dL 0.55-1.30 alanine aminotransferase (SGPT), serum 38 U/L 12-78 aspartate aminotransferase (SGOT), serum 19 U/L 15-37 calcium, serum 8.6 mg/dL 8.5-10.1 bilirubin, serum, total 0.30 mg/dL 0.00-1.00 sodium, serum 139 mmol/L 921-886 3986/01/11 carbon dioxide, venous blood 26.6 mmol/L 21.0-32.0 potassium, serum 4.1 mmol/L 3.5-5.2 chloride, serum 100 mmol/L 98-107 blood glucose 86 mg/dL 65-110 urea nitrogen, blood 16 mg/dL 7-18 creatinine, serum 1.00 mg/dL 0.55-1.30 alanine aminotransferase (SGPT), serum 48 U/L -78 aspartate aminotransferase (SGOT), serum 17 U/L 15-37 calcium, serum 9.1 mg/dL 8.5-10.1 bilirubin, serum, total 0.40 mg/dL 0.00-1.00 sodium, serum 142 mmol/L 779-439 1555/06/08 carbon dioxide, venous blood 27.6 mmol/L 21.0-32.0 potassium, serum 4.0 mmol/L 3.5-5.2 chloride, serum 105 mmol/L 98-107 blood glucose 95 mg/dL 65-110 urea nitrogen, blood 8 mg/dL 7-18 creatinine, serum 0.75 mg/dL 0.55-1.30 alanine aminotransferase (SGPT), serum 49 U/L aspartate aminotransferase (SGOT), serum 28 U/L 15- calcium, serum 9.4 mg/dL 8.5-10.1 bilirubin, serum, total 0.30 mg/dL 0.00-1.00 sodium, serum 140 mmol/L 421-117 6876/08/08 carbon dioxide, venous blood 33.7 mmol/L 21.0-32.0 potassium, serum 5.0 mmol/L 3.5-5.2 chloride, serum 103 mmol/L 98-107 blood glucose 80 mg/dL 65-110 urea nitrogen, blood 13 mg/dL 7- creatinine, serum 0.88 mg/dL 0.55-1.30 alanine aminotransferase (SGPT), serum 54 U/L aspartate aminotransferase (SGOT), serum 29 U/L 15- calcium, serum 9.7 mg/dL 8.5-10.1 bilirubin, serum, total 0.30 mg/dL 0.00-1.00 Lab Report: Comp. Metabolic Panel, Erythrocyte Sed Rate - Chemistry sodium, serum 139 mmol/L 005-997 7382/12/11 carbon dioxide, venous blood 25.4 mmol/L 21.0-32.0 potassium, serum 3.9 mmol/L 3.5-5.2 chloride, serum 105 mmol/L 98-107 blood glucose 98 mg/dL 65-110 urea nitrogen, blood 18 mg/dL 7-18 creatinine, serum 0.96 mg/dL 0.55-1.30 alanine aminotransferase (SGPT), serum 34 U/L aspartate aminotransferase (SGOT), serum 12 U/L -37 calcium, serum 8.6 mg/dL 8.5-10.1 bilirubin, serum, [...] mg/dL Encounters Code Encounter Date Provider Facility CPT-53458 Level 3 Est. Patient 11:36:17 CDT Ahmet Carbajal MD [facility] CPT-91049 Level 3 Est. Patient 13:29:16 CDT Vishal Hui MD [facility] CPT-30836 Level 3 Est. Patient 14:27:52 CDT Neeraj Collins MD [facility] CPT-70589 Level 3 Est. Patient 08:56:03 CDT Luigi Martínez [facility] CPT-32582 Level 4 Est. Patient 12:11:48 CDT Fabiola Johnson [facility] CPT-26003 Level 3 New Patient 16:53:37 CDT Albert Caldera MD [facility] CPT-41335 Level 3 Est. Patient 11:25:49 CDT Renzo Thornton DO [facility] CPT-96281 Level 3 Est. Patient 15:22:01 CDT Ahmet Carbajal MD [facility] CPT-76629 Level 4 Est. Patient 09:00:51 [employer]INGLE GRADER Vishal Hui MD [facility] CPT-07088 Level 3 Est. Patient 11:37:33 SHINGLE GRADER Vishal Hui MD [facility] CPT-44879 Level 3 Est. Patient 08:41:09 SHINGLE GRADER Vishal Hui MD [facility] CPT-34469 Level 4 Est. Patient 10:19:35 SHINGLE GRADER Vishal Hui MD [facility] CPT-14143 Level 3 Est. Patient 13:35:45 CDT Vishal Hui MD [facility] CPT-09815 Level 4 Est. Patient 10:08:37 CDT Vishal Hui MD [facility] CPT-77112 Level 3 Est. Patient 11:22:10 CDT Vishal Hui MD [facility] CPT-62913 Level 3 Est. Patient 11:03:32 CDT Sahara Rodriguez MD [facility] CPT-51903 Level 3 Est. Patient 09:41:35 CDT Vishal Hui MD [facility] CPT-76643 Level 3 Est. Patient 12:00:41 CDT Neeraj Collins MD [facility] CPT-01916 Level 3 Est. Patient 09:16:24 CDT Vishal Hui MD [facility] CPT-62618 Level 4 Est. Patient 13:59:09 CDT Neeraj Collins MD [facility] CPT-79699 Level 3 Est. Patient 15:19:43 CDT Renzo Thornton [facility] CPT-67864 Level 3 Est. Patient 18:10:26 CDT Sahara Rodriguez MD [facility]-27970 Level 3 Est. Patient 14:49:50 CDT Vishal Hui MD [facility] CPT-98942 Level 4 Est. Patient 18:41:46 CDT Neeraj Collins MD [facility] CPT-28926 Level 4 Est. Patient 09:18:38 [employer]INGLE GRADER Vishal Hui MD [facility] CPT-40590 Level 3 Est. Patient 14:43:55 SHINGLE GRADER Vishal Hui MD [facility] CPT-37864 Level 3 Est. Patient 15:26:33 SHINGLE GRADER Sahara Rodriguez MD [facility] CPT-76660 Level 3 Est. Patient 10:32:14 SHINGLE GRADER Vishal Hui MD [facility] CPT-27287 Level 3 Est. Patient 15:12:52 SHINGLE GRADER Vishal Hui MD [facility] CPT-76712 Level 4 Est. Patient 09:19:27 CDT Vishal Hui MD [facility] CPT-96409 Level 3 Est. Patient 15:53:00 CDT Renzo Thornton [facility] CPT-16552 Level 3 Est. Patient 15:50:30 CDT Renzo Thornton [facility] CPT-56896 Level 3 Est. Patient 16:55:24 CDT Vishal Hui MD [facility] Procedures Code Procedure Name Date Entry Date Standard Description CPT-53756 Abx/Therapy Injection 13:29:56 CDT CPT-47274 Abx/Therapy Injection 08:36:16 CDT CPT-61935 Wet Mount - LAB USE ONLY 17:44:58 CDT CPT-52131 UA w micro - LAB USE ONLY 17:44:58 CDT CPT-21640 CMP - LAB USE ONLY 17:44:58 CDT CPT-82664 Venipuncture Draw Fee 17:44:58 CDT CPT-96186 Cervical Min 4V - XRAY USE ONLY 09:01:40 CDT CPT-59080 Chest 2V Frontal and Lat - XRAY USE ONLY 11:06:31 CDT CPT-16429 EKG Trac and Interp - XRAY USE ONLY 11:31:43 CDT 08/26 CPT-J3420 Vitamin B12 1000mcg (Cyanocobalamin) 08:10:26 SHINGLE GRADER 04/12 CPT-89764 Abx/Therapy Injection 08:10:26 SHINGLE GRADER CPT-G0438 Initial Annual Wellness Exam 19:01:01 SHINGLE GRADER CPT-J3420 Vitamin B12 1000mcg (Cyanocobalamin) 16:57:46 CDT 08/14 CPT-13244 Recombivax HB Injection Suspension 5 MCG/0.5ML 08:37:50 SHINGLE GRADER CPT-59198 Immunization Single Admin 08:37:50 SHINGLE GRADER CPT-J3420 Vitamin B12 1000mcg (Cyanocobalamin) 08:32:16 SHINGLE GRADER 03/11 CPT-74915 Abx/Therapy Injection 08:32:16 SHINGLE GRADER CPT-58876 Chest 2V Frontal and Lat 11:46:38 SHINGLE GRADER CPT-32617 Venipuncture Draw Fee 09:12:45 SHINGLE GRADER CPT-J3420 Vitamin B12 1000mcg (Cyanocobalamin) 08:50:15 SHINGLE GRADER 02/08 CPT-78700 Abx/Therapy Injection 08:50:15 SHINGLE GRADER CPT-Cryo Cryotherapy 10:19:35 SHINGLE GRADER CPT-000 Give Appropriate Flu Vaccine 09:22:16 CDT CPT-J3420 Vitamin B12 1000mcg (Cyanocobalamin) 19:08:57 CDT 01/11 CPT-65362 Abx/Therapy Injection 19:08:57 CDT CPT-J3420 Vitamin B12 1000mcg (Cyanocobalamin) 08:19:08 CDT 12/11 CPT-01677 Abx/Therapy Injection 08:19:08 CDT CPT-J3420 Vitamin B12 1000mcg (Cyanocobalamin) 14:48:00 CDT 11/09 CPT-01564 Abx/Therapy Injection 14:47:59 CDT CPT-J3420 Vitamin B12 1000mcg (Cyanocobalamin) 08:34:04 CDT 10/09 CPT-28025 Abx/Therapy Injection 08:34:04 CDT CPT-J3420 Vitamin B12 1000mcg (Cyanocobalamin) 09:18:52 CDT 09/11 CPT-25990 Abx/Therapy Injection 09:18:52 CDT CPT-J3420 Vitamin B12 1000mcg (Cyanocobalamin) 08:35:44 CDT 09/04 CPT-24685 Abx/Therapy Injection 08:35:44 CDT CPT-24885 Immunization Single Admin 11:07:16 CDT CPT-83473 Hepatitis B adult IM 11:07:16 CDT CPT-J3420 Vitamin B12 1000mcg (Cyanocobalamin) 11:00:49 CDT 08/28 CPT-J1040 Depo Medrol 80 mg (Methyl Prednisolone Acetate) 11:00: 49 CDT CPT-21057 Abx/Therapy Injection 11:00:49 CDT CPT-J1040 Depo Medrol 80 mg (Methyl Prednisolone Acetate) 09:16: 23 CDT CPT-J3420 Vitamin B12 1000mcg (Cyanocobalamin) 08:27:05 CDT 08/20 CPT-30542 Abx/Therapy Injection 08:27:05 CDT CPT-00603 Recombivax HB Injection Suspension 5 MCG/0.5ML 10:00:41 CDT CPT-87515 Administration single or combination vaccine inc oral 10 :00:41 CDT CPT-26005 Sono transvag pelvis non OB uterus ovaries cervix 16:36: 57 CDT CPT-62125 LS spine comp w obliq 09:50:55 [employer]INGLE [employer]ER CPT-72443 Abd compl w upright 09:50:55 [employer]INGLE [employer]ER CPT-J1100 Decadron 4mg (Dexamethasone) 15:51:24 [employer]INGLE GR[employer]ER CPT-J1030 Depo Medrol 40 mg (Methyl Prednisolone Acetate) 15:51: 24 [employer]INGLE [employer]ER CPT-59190 Abx/Therapy Injection 15:51:24 [employer]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
--- OUTSIDE RECORDS SUMMARY | 2016-11-05 00:03 | XMS REPORT | Clinical Summary ---
Author Author Admin, E Organization [facility] [email or web address] Address Unknown Phone Unavailable Allergies, Adverse Reactions, [...] facility Sinus tachycardia 427.89 Resolved Suzan Rajeev MEDICAL RECEPTIONIST BILLER Other specified cardiac dysrhythmias Schizoaffective disorder 295.70 Active Vishal Hui MD Schizoaffective disorder, unspecified Irritable bowel syndrome 564.1 Active Vishla Hui MD Irritable bowel syndrome Low back [...] Active Ahmet Carbajal MD Generalized anxiety disorder [employer] well woman exam V72.31 Active Suzan [...] Health screening ICD-V70.0 Inactive Suzan Boo MEDICAL RECEPTIONIST BILLER Sinus tachycardia ICD-427.89 Inactive Suzan Boo MEDICAL RECEPTIONIST BILLER Smoker/tobacco use disorder-smoking cessation discussed ICD-305.1 Inactive [...] a day as needed for cough BENZONATATE 48830931346 No Longer Active Suzan Boo APRN Active BACTRIM DS 800-160 MG TABS 1 twice a day SULFAMETHOXAZOLE-TRIMETHOPRIM 53984680787 No Longer Active Suzan Boo APRN Active DIFLUCAN 150 MG TABS 1 by mouth for yeast FLUCONAZOLE 65067372002 No Longer Active Suzan Boo APRN Active EQ NICOTINE 21 MG/24HR TRANS PT24 Apply daily to stop smoking NICOTINE 81105182359 No Longer Active Suzan Boo APRN Active PREDNISONE 10 MG TABS 2 daily for 5 days then 1 daily for 5 days PREDNISONE 73653721550 No Longer Active Suzan Boo APRN Active LEVAQUIN 500 MG TABS 1 daily for infection LEVOFLOXACIN 98606864268 No Longer Active Suzan Boo APRN Active TROPICAMIDE 0.5 % OPHTH SOLN 1 drop PRN eye spasms TROPICAMIDE 51472606924 No Longer Active Suzan Boo APRN Active PREDNISONE 20 MG TAB 1 tablet daily x 4 days PREDNISONE 77768533607 No Longer Active Suzan Boo APRN Active ACETAMINOPHEN-CODEINE 120-12 MG/5ML SOLN 5 ml by mouth every 4-6 hours if needed for cough ACETAMINOPHEN-CODEINE 17245115619 No Longer Active Suzan Boo APRN Active KEFLEX 500 MG CAP 1 po qid CEPHALEXIN 44888246234 No Longer Active Suzan Boo APRN Active FLOVENT HFA 110 MCG/ACT AERO 2 puffs inhaled b.i.d. FLUTICASONE PROPIONATE HFA 55949671996 Active Renzo Thornton DO Active RISPERDAL 4 MG ORAL TABS 1 tab at bedtime RISPERIDONE 53643712371 Active Samantha Rothman RMA Active ZOFRAN 4 MG TABS 1 po q6hr PRN Nausea ONDANSETRON HCL No Longer Active Suzan Boo APRN Active FLUTICASONE PROPIONATE 50 MCG/ACT SUSP 2 sprays each nostril daily before bed. FLUTICASONE PROPIONATE 43311353481 No Longer Active Suzan Boo APRN Active ASPIRIN 325 MG ORAL TABS 1 tab q.d ASPIRIN 12891778910 No Longer Active Suzan Boo APRN Active HALOPERIDOL 10 MG ORAL TABS 1 tab q.d HALOPERIDOL 00667630741 No Longer Active Suzan Boo APRN Active GUAIFENESIN-CODEINE 100-10 MG/5ML SYRP 5ml every 4 to 6 hours as needed for cough GUAIFENESIN-CODEINE 82750663406 No Longer Active Suzan Boo APRN Active ZITHROMAX Z-EARNEST 250 MG TABS 2 today and then 1 daily for 4 days AZITHROMYCIN 46773205236 No Longer Active Suzan Boo APRN Active CLONAZEPAM 1 MG ORAL TABS 1 twice a day and an additional 1 tablet every other day as needed for pseudoseizures or anxiety CLONAZEPAM 89002931790 Active Ahmet Carbajal MD Active HYDROCODONE-ACETAMINOPHEN 5-325 MG ORAL TABS 1 tab two times a day HYDROCODONE-ACETAMINOPHEN 69646975713 No Longer Active Ahmet Carbajal MD Active LAMICTAL 100 MG ORAL TABS 1 tab 2 times qd. LAMOTRIGINE 12494601707 Active Ahmet Carbajal MD Active PREDNISONE 20 MG TABS 2 daily for 5 days then 1 daily for 5 days PREDNISONE 78369418057 No Longer Active Ahmet Carbajal MD Active FLUTICASONE PROPIONATE 50 MCG/ACT SUSP 1 to 2 sprays each nostril daily for allergies FLUTICASONE PROPIONATE 71371416659 Active Tila aVlenzuela Active BENADRYL 25 MG CAP 4 po at bedtime for insomnia DIPHENHYDRAMINE HCL 01439483648 No Longer Active Ahmet Carbajal MD Active ADVAIR DISKUS 250-50 MCG/DOSE INH AEPB 1 puff twice a day for asthma FLUTICASONE-SALMETEROL 38561855761 No Longer Active Ahmet Carbajal MD Active KLONOPIN 1 MG ORAL TABS 1 tab po TID CLONAZEPAM 69894215417 No Longer Active Ahmet Carbajal MD Active ABILIFY MAINTENA 400 MG IM SUSR 400mg injection every 26 days ARIPIPRAZOLE 32641643267 No Longer Active Ahmet Carbajal MD Active TRAMADOL HCL 50 MG TABS 1/2-1 tab TID PRN TRAMADOL HCL 93638374550 No Longer Active Ahmet Carbajal MD Active BACTRIM DS 800-160 MG TABS 1 twice a day SULFAMETHOXAZOLE- TRIMETHOPRIM 91014927600 No Longer Active Ahmet Carbajal MD Active PROAIR HFA 108 (90 BASE) MCG/ACT AERS 2 puffs four times a day as needed 2015 ALBUTEROL SULFATE 07562478043 Active Ahmet Carbajal MD Active MONISTAT 7 COMBO PACK WOODROW 100 & 2 MG-% (9GM) VAG KIT 1 applicatorful per vagina q pm x 7 MICONAZOLE NITRATE 14406751847 No Longer Active Ahmet Carbajal MD Active FLAGYL 500 MG TAB 1 tablet by mouth bid METRONIDAZOLE 87603999293 No Longer Active Ahmet Carbajal MD Active OXYCODONE HCL ER 10 MG ORAL T12A 1/2 tab by mouth every 4 hours prn OXYCODONE HCL 19292104455 No Longer Active Ahmet Carbajal MD Active METHYLPREDNISOLONE 4 MG ORAL TABS po daily METHYLPREDNISOLONE 76466030046 No Longer Active Ahmet Carbajal MD Active LEVOFLOXACIN 500 MG ORAL TABS po daily LEVOFLOXACIN 04069294393 No Longer Active Ahmet Carbajal MD Active VIIBRYD 10 MG ORAL TABS Take 1 tablet once a day VILAZODONE HCL 67085523831 No Longer Active Ahmet Carbajal MD Active TOPAMAX 50 MG ORAL TABS 1 tab twice daily TOPIRAMATE 10959709677 No Longer Active Ahmet Carbajal MD Active DICLOFENAC SODIUM 50 MG TBEC 1 tablet by mouth four times daily PRN Pain 2015 DICLOFENAC SODIUM 28583884725 No Longer Active Ahmet Carbajal MD Active ADZENYS XR-ODT 6.3 MG ORAL TBED 1 tab po daily for ADHD AMPHETAMINE 56468542479 No Longer Active Ahmet Carbajal MD Active CHANTIX 1 MG TABS 1 twice a day to help quit smoking VARENICLINE TARTRATE 25763895581 No Longer Active Dipika Burgos MD Active CHANTIX STARTING MONTH EARNEST 0.5 MG X 11 & 1 MG X 42 TABS take as directed 2015 VARENICLINE TARTRATE 02390011309 No Longer Active Dipika Burgos MD Active TESSALON PERLES 100 MG CAP 1 to 2 tablets by mouth 3 times daily as needed for cough BENZONATATE 76993905259 No Longer Active Luigi Martínez MEDICAL RECEPTIONIST BILLER Active IMITREX 50 MG ORAL TABS 0.5 po x 1 PRN Headache. May repeat dose x 1 in 2 hours if needed SUMATRIPTAN SUCCINATE 06850931681 Active Ahmet Carbajal MD Active HYDROCODONE-ACETAMINOPHEN 5-325 MG TABS 1 to 2 four times a day as needed for pain use until can be seen by specialist HYDROCODONE- ACETAMINOPHEN 10272466805 No Longer Active Vishal Hui MD Active PROAIR HFA 108 (90 BASE) MCG/ACT AERS 2 puffs four times a day as needed 2015 ALBUTEROL SULFATE 32678699244 No Longer Active Vishal Hui MD Active PREDNISONE 20 MG TABS 2 daily for 5 days then 1 daily for 5 days PREDNISONE 04994643119 No Longer Active Vishal Hui MD Active ZITHROMAX Z-EARNEST 250 MG TABS 2 today and then 1 daily for 4 days AZITHROMYCIN 72887280754 No Longer Active Vishal Hui MD Active DICLOFENAC POTASSIUM TABS Take 1 tablet twice a day (pt. is not sure of the dose.) DICLOFENAC POTASSIUM TABS 51275784220 No Longer Active Vishal Hui MD Active VERAPAMIL HCL ER 120 MG ORAL CR-TABS Take 1 tablet by mouth twice a day. VERAPAMIL HCL 50400281833 Active Vishal Hui MD Active FLAGYL 500 MG TAB 1 tablet by mouth bid METRONIDAZOLE 50007785465 No Longer Active Vishal Hui MD Active VALIUM 5 MG TAB Take 1-2 tablets daily DIAZEPAM 95511800145 No Longer Active Fabiola Johnson APRN Active METOPROLOL TARTRATE 25 MG ORAL TABS 1/2 tablet twice daily for heart rate and blood pressure METOPROLOL TARTRATE 95844452551 No Longer Active Fabiola Johnson APRN Active MIRALAX ORAL POWD 17GMS DAILY IN WATER POLYETHYLENE GLYCOL 3350 76889126244 Active TAMARA Casey Active MIRALAX PACK 1 po qd PRN Constipation POLYETHYLENE GLYCOL 3350 91075912825 No Longer Active Ahmet Carbajal MD Active MINIPRESS 2 MG CAPS 4 cap po at night PRAZOSIN HCL 58590956683 No Longer Active Ahmet Carbajal MD Active PIROXICAM 20 MG CAPS 1 cap po qd PRN Pain PIROXICAM 49069793034 No Longer Active Ahmet Carbajal MD Active TRAMADOL HCL 50 MG TABS 1-2 po TID PRN Pain TRAMADOL HCL 66822082641 No Longer Active Ahmet Carbajal MD Active METOPROLOL TARTRATE 50 MG TAB 1 po bid METOPROLOL TARTRATE 23786126124 No Longer Active Ahmet Carbajal MD Active ABILIFY 15 MG ORAL TABS 1 tab daily ARIPIPRAZOLE 16123385196 No Longer Active Ahmet Carbajal MD Active PROZAC 20 MG ORAL CAPS 1 tab daily FLUOXETINE HCL 91333366794 No Longer Active Ahmet Carbajal MD Active AMBIEN 5 MG ORAL TABS 1 tab at bedtime ZOLPIDEM TARTRATE 13713806643 No Longer Active Ahmet Carbajal MD Active PREDNISONE 20 MG TAB 2 tabs daily for 4 days, 1 tab daily for 4 days, 1/2 tab daily for 4 days PREDNISONE 96046380129 No Longer Active Ahmet Carbajal MD Active KEFLEX 500 MG CAP 1 po TID x 10 days CEPHALEXIN 12133542629 No Longer Active Vishal Hui MD Active SAPHRIS 5 MG SUBL 1 po bid ASENAPINE MALEATE 46534083647 No Longer Active Pacollina Mauricio MEDICAL RECEPTIONIST BILLER Active LATUDA 80 MG TABS Take one by mouth daily LURASIDONE HCL 96698087887 No Longer Active Jillina Fralebron MEDICAL RECEPTIONIST BILLER Active AMLODIPINE BESYLATE 5 MG TABS 1 tablet by mouth daily AMLODIPINE BESYLATE 02870715038 No Longer Active Pacollina Mauricio MEDICAL RECEPTIONIST BILLER Active AMITRIPTYLINE HCL 100 MG TAB one at hs AMITRIPTYLINE HCL 73768010130 No Longer Active Vishal Hui MD Active TRAZODONE HCL 100 MG TAB take 1 at bedtime TRAZODONE HCL 84446133794 No Longer Active Vishal Hui MD Active VYVANSE 40 MG CAPS 1 daily, LISDEXAMFETAMINE DIMESYLATE 48128294752 No Longer Active Vishal Hui MD Active IBUPROFEN 600 MG TAB 1 po TID PRN IBUPROFEN 97767572486 No Longer Active Vishal Hui MD Active PROZAC 20 MG CAP Take one by mouth daily FLUOXETINE HCL 46724723375 No Longer Active Vishal Hui MD Active BACTRIM DS 800-160 MG TABS 1 pill by mouth twice daily SULFAMETHOXAZOLE-TRIMETHOPRIM 92043930842 No Longer Active Sahara Rodriguez MD PhD Active DIFLUCAN 150 MG TAB 1 tablet by mouth daily FLUCONAZOLE 41576302378 No Longer Active Vishal Hui MD Active TIZANIDINE HCL 4 MG TABS 1 po q6hr PRN Muscle Spasm/Back Pain TIZANIDINE HCL 69882396768 Active Vishal Hui MD Active CLINDAMYCIN HCL 150 MG CAPS 1 four times a day CLINDAMYCIN HCL 84104723821 No Longer Active Neeraj Collins MD Active KEFLEX 500 MG ORAL CAPS 1 cap QID by mouth CEPHALEXIN 50509213892 No Longer Active Neeraj Collins MD Active DIFLUCAN 150 MG TABS 1 pill every other day x 2 doses FLUCONAZOLE 79347062226 No Longer Active Sahara Rodriguez MD PhD Active MELATONIN 3 MG CAPS 2 po q hs MELATONIN 94358069891 No Longer Active Sahara Rodriguez MD PhD Active MULTIVITAMINS CAPS Take one by mouth daily MULTIPLE VITAMIN 36038068584 No Longer Active Sahara Rodriguez MD PhD Active BACTRIM DS 800-160 MG TAB 1 tab by mouth twice daily TRIMETHOPRIM-SULFAMETHOXAZOLE 35359537527 No Longer Active Sahara Rodriguez MD PhD Active [facility] PROBIOTIC ORAL CHEW 2 daily po PROBIOTIC PRODUCT 44374603100 No Longer Active Sahara Rodriguez MD PhD Active BACTRIM DS 800-160 MG TABS 1 po BID x 7 days SULFAMETHOXAZOLE-TRIMETHOPRIM 73210916565 No Longer Active Vishal Hui MD Active CHANTIX STARTING MONTH EARNEST 0.5 MG X 11 & 1 MG X 42 TABS 0.5mg daily for 3 days , then 0.5mg BID for 4 days, then 1mg BID VARENICLINE TARTRATE 89977247163 No Longer Active TAMARA Gray Active VERAPAMIL HCL CR 120 MG TAB CR 1 po bid VERAPAMIL HCL 07457304025 No Longer Active Vishal Hui MD Active METOPROLOL SUCCINATE 50 MG TB24 1 tablet by mouth daily METOPROLOL SUCCINATE 49704164198 No Longer Active Vishal Hui MD Active SAPHRIS 10 MG SUBL 1 tab po bid ASENAPINE MALEATE 95845236819 No Longer Active Vishal Hui MD Active LISINOPRIL 20 MG TABS 1 tab po qd LISINOPRIL 81185132102 No Longer Active Vishal Hui MD Active LATUDA 20 MG TABS Take one by mouth daily LURASIDONE HCL 49506236551 No Longer Active Vishal Hui MD Active TRAZODONE HCL 50 MG TABS 1/2 tab po qd prn for anxiety TRAZODONE HCL 35094584738 No Longer Active Vishal Hui MD Active OMEPRAZOLE 20 MG TBEC 1 po q a.m. 30min prior to first food intake OMEPRAZOLE 59868276371 Active TAMARA Casey Active RANITIDINE HCL 150 MG CAPS 1 twice a day RANITIDINE HCL 10870964435 Active Jillina Frazell MEDICAL RECEPTIONIST BILLER Active LINZESS 290 MCG CAPS Take one by mouth daily LINACLOTIDE 78300832028 No Longer Active Vishal Hui MD Active SAPHRIS 5 MG SUBL 1 tab po qd ASENAPINE MALEATE 03284535627 No Longer Active Vishal Hui MD Active ZALEPLON 10 MG CAPS 1 cap po every other night ZALEPLON 89787057086 No Longer Active Vishal Hui MD Active LYRICA 50 MG CAPS 1 tab po TID PREGABALIN 55025594189 No Longer Active Vishal Hui MD Active LORATADINE 10 MG TABS 1 tab po qd LORATADINE 98552095129 No Longer Active Vishal Hui MD Active VERAPAMIL HCL ER 180 MG CR-TABS 1 tab po bid VERAPAMIL HCL 34960975398 No Longer Active Vishal Hui MD Active MIRALAX POWD 1 capfull once daily POLYETHYLENE GLYCOL 3350 64217795034 No Longer Active Vishal Hui MD Active PREDNISONE 20 MG TABS 1 tab po qd PREDNISONE 12782806740 No Longer Active Renzo Thornton DO Active LEVOFLOXACIN 500 MG TABS 1 tab po qd LEVOFLOXACIN 58639034703 No Longer Active Renzo Thornton DO Active BUSPIRONE HCL 15 MG TABS 1 tab po TID BUSPIRONE HCL 23416419695 No Longer Active Renzo Thornton DO Active BENZTROPINE MESYLATE 1 MG TABS 1 tab po qd BENZTROPINE MESYLATE 94025131857 No Longer Active Renzo Thornton DO Active ATENOLOL 25 MG TABS 1 tab po qd ATENOLOL 15831534149 No Longer Active Renzo Thornton DO Active ESCITALOPRAM OXALATE 20 MG TABS 1 tab po qd ESCITALOPRAM OXALATE 12347676022 No Longer Active Renzo Thornton DO Active ADVAIR DISKUS 250-50 MCG/DOSE AEPB 1 puff BID FLUTICASONE-SALMETEROL 80616502023 No Longer Active Renzo Thornton DO Active PREDNISONE 20 MG TAB 2 tabs daily for 3 days, 1 tab daily for 3 days, 1/2 tab daily for 2 days PREDNISONE 97803408488 No Longer Active Vishal Hui MD Active CEFDINIR 300 MG CAPS by mouth twice a day CEFDINIR 75527990423 No Longer Active Vishal Hui MD Active LANSOPRAZOLE 30 MG CPDR 1 cap po qd LANSOPRAZOLE 04475707029 No Longer Active Vishal Hui MD Active BACLOFEN 20 MG TABS 1 tab po tid BACLOFEN 63010505276 No Longer Active Vishal Hui MD Active ADVAIR DISKUS 250-50 MCG/DOSE AEPB 1 puff BID ADVAIR DISKUS 250-50 MCG/DOSE AEPB FLUTICASONE-SALMETEROL Inactive ESCITALOPRAM OXALATE 20 MG TABS 1 tab po qd ESCITALOPRAM OXALATE 20 MG TABS 083575 ESCITALOPRAM OXALATE Inactive ATENOLOL 25 MG TABS 1 tab po qd ATENOLOL 25 MG TABS 385180 ATENOLOL Inactive BENZTROPINE MESYLATE 1 MG TABS 1 tab po qd BENZTROPINE MESYLATE 1 MG TABS 522404 BENZTROPINE MESYLATE Inactive BUSPIRONE HCL 15 MG TABS 1 tab po TID BUSPIRONE HCL 15 MG TABS 874834 BUSPIRONE HCL Inactive LEVOFLOXACIN 500 MG TABS 1 tab po qd LEVOFLOXACIN 500 MG TABS 012226 LEVOFLOXACIN Inactive PREDNISONE 20 MG TABS 1 tab po qd PREDNISONE 20 MG TABS 279164 PREDNISONE Inactive MIRALAX POWD 1 capfull once daily MIRALAX POWD 258487 POLYETHYLENE GLYCOL 3350 Inactive VERAPAMIL HCL ER 180 MG CR-TABS 1 tab po bid VERAPAMIL HCL ER 180 MG CR-TABS VERAPAMIL HCL Inactive LORATADINE 10 MG TABS 1 tab po qd LORATADINE 10 MG TABS 927521 LORATADINE Inactive LYRICA 50 MG CAPS 1 tab po TID LYRICA 50 MG CAPS PREGABALIN Inactive ZALEPLON 10 MG CAPS 1 cap po every other night ZALEPLON 10 MG CAPS 845353 ZALEPLON Inactive SAPHRIS 5 MG SUBL 1 tab po qd SAPHRIS 5 MG SUBL ASENAPINE MALEATE Inactive TRAZODONE HCL 50 MG TABS 1/2 tab po qd prn for anxiety TRAZODONE HCL 50 MG TABS 423080 TRAZODONE HCL Inactive LATUDA 20 MG TABS Take one by mouth daily LATUDA 20 MG TABS LURASIDONE HCL Inactive LISINOPRIL 20 MG TABS 1 tab po qd LISINOPRIL 20 MG TABS 203841 LISINOPRIL Inactive SAPHRIS 10 MG SUBL 1 [...] twice daily BACTRIM DS 800-160 MG TAB 658837 TRIMETHOPRIM-SULFAMETHOXAZOLE Inactive MULTIVITAMINS CAPS Take one by mouth daily MULTIVITAMINS CAPS MULTIPLE VITAMIN Inactive MELATONIN 3 MG CAPS 2 po q hs MELATONIN 3 MG CAPS 539426 MELATONIN Inactive KEFLEX 500 MG ORAL CAPS 1 cap QID by mouth KEFLEX 500 MG ORAL CAPS 747599 CEPHALEXIN Inactive CLINDAMYCIN HCL 150 MG CAPS 1 four times a day CLINDAMYCIN HCL 150 MG CAPS 343992 CLINDAMYCIN HCL Inactive DIFLUCAN 150 MG TAB 1 tablet by mouth daily DIFLUCAN 150 MG TAB 616066 FLUCONAZOLE Inactive PROZAC 20 MG CAP Take one by mouth daily PROZAC 20 MG CAP 459167 FLUOXETINE HCL Inactive IBUPROFEN 600 MG TAB 1 po TID PRN IBUPROFEN 600 MG TAB 022701 IBUPROFEN Inactive VYVANSE 40 MG CAPS 1 daily, VYVANSE 40 MG CAPS LISDEXAMFETAMINE DIMESYLATE Inactive TRAZODONE HCL 100 MG TAB take 1 at bedtime TRAZODONE HCL 100 MG TAB 324973 TRAZODONE HCL Inactive AMITRIPTYLINE HCL 100 MG TAB one at hs AMITRIPTYLINE HCL 100 MG TAB 840109 AMITRIPTYLINE HCL Inactive AMLODIPINE BESYLATE 5 MG TABS 1 tablet by mouth daily AMLODIPINE BESYLATE 5 MG TABS 863791 AMLODIPINE BESYLATE Inactive LATUDA 80 MG TABS Take one by mouth daily LATUDA 80 MG TABS LURASIDONE HCL Inactive SAPHRIS 5 MG SUBL 1 po bid SAPHRIS 5 MG SUBL ASENAPINE MALEATE Inactive PREDNISONE 20 MG TAB 2 tabs daily for 4 days, 1 tab daily for 4 days, 1/2 tab daily for 4 days PREDNISONE 20 MG TAB 838868 PREDNISONE Inactive AMBIEN 5 MG ORAL TABS 1 tab at bedtime AMBIEN 5 MG ORAL TABS 285687 ZOLPIDEM TARTRATE Inactive PROZAC 20 MG ORAL CAPS 1 tab daily PROZAC 20 MG ORAL CAPS 121625 FLUOXETINE HCL Inactive ABILIFY 15 MG ORAL TABS 1 tab daily ABILIFY 15 MG ORAL TABS 719391 ARIPIPRAZOLE Inactive METOPROLOL TARTRATE 50 MG TAB 1 po bid METOPROLOL TARTRATE 50 MG TAB 594260 METOPROLOL TARTRATE Inactive TRAMADOL HCL 50 MG TABS 1-2 po TID PRN Pain TRAMADOL HCL 50 MG TABS 379821 TRAMADOL HCL Inactive PIROXICAM 20 MG CAPS 1 cap po qd PRN Pain PIROXICAM 20 MG CAPS 232957 PIROXICAM Inactive MINIPRESS 2 MG CAPS 4 cap po at night MINIPRESS 2 MG CAPS 299629 PRAZOSIN HCL Inactive MIRALAX PACK 1 po qd PRN Constipation MIRALAX PACK 353028 POLYETHYLENE GLYCOL 3350 Inactive METOPROLOL TARTRATE 25 MG ORAL TABS 1/2 tablet twice daily for heart rate and blood pressure METOPROLOL TARTRATE 25 MG ORAL TABS 777987 METOPROLOL TARTRATE Inactive VALIUM 5 MG TAB Take 1-2 tablets daily VALIUM 5 MG TAB 381297 DIAZEPAM Inactive FLAGYL 500 MG TAB 1 tablet by mouth bid FLAGYL 500 MG TAB 113621 METRONIDAZOLE Inactive DICLOFENAC POTASSIUM TABS Take 1 tablet twice a day (pt. is not sure of the dose.) DICLOFENAC POTASSIUM TABS DICLOFENAC POTASSIUM TABS Inactive ZITHROMAX Z-EARNEST 250 MG TABS 2 today and then 1 daily for 4 days ZITHROMAX Z-EARNEST 250 MG TABS 1159895 AZITHROMYCIN Inactive PREDNISONE 20 MG TABS 2 daily for 5 days then 1 daily for 5 days PREDNISONE 20 MG TABS 961959 PREDNISONE Inactive PROAIR HFA 108 (90 BASE) MCG/ACT AERS 2 puffs four times a day as needed 2015 PROAIR HFA 108 (90 BASE) MCG/ACT AERS ALBUTEROL SULFATE Inactive HYDROCODONE-ACETAMINOPHEN 5-325 MG TABS 1 to 2 four times a day as needed for pain use until can be seen by specialist HYDROCODONE- ACETAMINOPHEN 5-325 MG TABS 980326 HYDROCODONE-ACETAMINOPHEN Inactive TESSALON PERLES 100 MG CAP 1 to 2 tablets by mouth 3 times daily as needed for cough TESSALON PERLES 100 MG CAP 207174 BENZONATATE Inactive CHANTIX STARTING MONTH EARNEST 0.5 [...] Pain 2015 DICLOFENAC SODIUM 50 MG TBEC 376908 DICLOFENAC SODIUM Inactive TOPAMAX 50 MG ORAL TABS 1 tab twice daily TOPAMAX 50 MG ORAL TABS 164006 TOPIRAMATE Inactive VIIBRYD 10 MG ORAL TABS Take 1 tablet once a day VIIBRYD 10 MG ORAL TABS VILAZODONE HCL Inactive LEVOFLOXACIN 500 MG ORAL TABS po daily LEVOFLOXACIN 500 MG ORAL TABS 233653 LEVOFLOXACIN Inactive METHYLPREDNISOLONE 4 MG ORAL TABS po daily METHYLPREDNISOLONE 4 MG ORAL TABS 879510 METHYLPREDNISOLONE Inactive OXYCODONE HCL ER 10 MG ORAL T12A 1/2 tab by mouth every 4 hours prn OXYCODONE HCL ER 10 MG ORAL T12A OXYCODONE HCL Inactive FLAGYL 500 MG TAB 1 tablet by mouth bid FLAGYL 500 MG TAB 102598 METRONIDAZOLE Inactive MONISTAT 7 COMBO PACK WOODROW 100 & 2 MG-% (9GM) VAG KIT 1 applicatorful per vagina q pm x 7 MONISTAT 7 COMBO PACK WOODROW 100 & 2 MG-% (9GM) VAG KIT MICONAZOLE NITRATE Inactive BACTRIM DS 800-160 MG TABS 1 twice a day BACTRIM DS 800-160 MG TABS 158464 SULFAMETHOXAZOLE-TRIMETHOPRIM Inactive TRAMADOL HCL 50 MG TABS 1/2-1 tab TID PRN TRAMADOL HCL 50 MG TABS 123516 TRAMADOL HCL Inactive ABILIFY MAINTENA 400 MG IM SUSR 400mg injection every 26 days ABILIFY MAINTENA 400 MG IM SUSR ARIPIPRAZOLE Inactive KLONOPIN 1 MG ORAL TABS 1 tab po TID KLONOPIN 1 MG ORAL TABS 987586 CLONAZEPAM Inactive ADVAIR DISKUS 250-50 MCG/DOSE INH AEPB 1 puff twice a day for asthma ADVAIR DISKUS 250-50 MCG/DOSE INH AEPB FLUTICASONE- SALMETEROL Inactive BENADRYL 25 MG CAP 4 po at bedtime for insomnia BENADRYL 25 MG CAP DIPHENHYDRAMINE HCL Inactive PREDNISONE 20 MG TABS 2 daily for 5 days then 1 daily for 5 days PREDNISONE 20 MG TABS 870424 PREDNISONE Inactive HYDROCODONE-ACETAMINOPHEN 5-325 MG ORAL TABS 1 tab two times a day HYDROCODONE-ACETAMINOPHEN 5-325 MG ORAL TABS 346279 HYDROCODONE-ACETAMINOPHEN Inactive ZITHROMAX Z-EARNEST 250 MG TABS 2 today and then 1 daily for 4 days ZITHROMAX Z-EARNEST 250 MG TABS 0593114 AZITHROMYCIN Inactive GUAIFENESIN-CODEINE 100-10 MG/5ML SYRP 5ml every 4 to 6 hours as needed for cough GUAIFENESIN-CODEINE 100-10 MG/5ML SYRP 273694 GUAIFENESIN-CODEINE Inactive HALOPERIDOL 10 MG ORAL TABS 1 tab q.d HALOPERIDOL 10 MG ORAL TABS 642011 HALOPERIDOL Inactive ASPIRIN 325 MG ORAL TABS 1 tab q.d ASPIRIN 325 MG ORAL TABS 350385 ASPIRIN Inactive FLUTICASONE PROPIONATE 50 MCG/ACT SUSP 2 sprays each nostril daily before bed. FLUTICASONE PROPIONATE 50 MCG/ACT SUSP 9093202 FLUTICASONE PROPIONATE Inactive ZOFRAN 4 MG TABS 1 po q6hr PRN Nausea ZOFRAN 4 MG TABS 427473 ONDANSETRON HCL Inactive KEFLEX 500 MG CAP 1 po qid KEFLEX 500 MG CAP 118512 CEPHALEXIN Inactive ACETAMINOPHEN-CODEINE 120-12 MG/5ML SOLN 5 ml by mouth every 4-6 hours if needed for cough ACETAMINOPHEN-CODEINE 120-12 MG/5ML SOLN 567707 ACETAMINOPHEN-CODEINE Inactive PREDNISONE 20 MG TAB 1 tablet daily x 4 days PREDNISONE 20 MG TAB 905660 PREDNISONE Inactive TROPICAMIDE 0.5 % OPHTH SOLN 1 drop PRN eye spasms TROPICAMIDE 0.5 % OPHTH SOLN 411504 TROPICAMIDE Inactive LEVAQUIN 500 MG TABS 1 daily for infection LEVAQUIN 500 MG TABS 669627 LEVOFLOXACIN Inactive PREDNISONE 10 MG TABS 2 [...] twice a day CEFDINIR 300 MG CAPS 438955 CEFDINIR Inactive PREDNISONE 20 MG TAB 2 tabs daily for 3 days, 1 tab daily for 3 days, 1/2 tab daily for 2 days PREDNISONE 20 MG TAB 557897 PREDNISONE Inactive BACTRIM DS 800-160 MG TABS 1 po BID x 7 days BACTRIM DS 800-160 MG TABS 568057 SULFAMETHOXAZOLE-TRIMETHOPRIM Inactive DIFLUCAN 150 MG TABS 1 pill every other day x 2 doses DIFLUCAN 150 MG TABS 19751126 FLUCONAZOLE Inactive BACTRIM DS 800-160 MG TABS 1 pill by mouth twice daily BACTRIM DS 800-160 MG TABS 985123 SULFAMETHOXAZOLE-TRIMETHOPRIM Inactive KEFLEX 500 MG CAP 1 po TID x 10 days KEFLEX 500 MG CAP 726608 CEPHALEXIN Inactive Advance Directives Directive Description Start [...] % 11.0-15.0 platelet count 443 THOUSAND/UL 10*3/mm3 220-337 1481/03/01 mean platelet volume 8.2 fL 7.5-12.5 Lab [...] 369 10^3/MM^3 10*3/mm3 142-424 Lab Report: Chlamydia/GC APTIMA/[id number] - Lab chlamydia DNA probe NOT DETECTED NOT DETECTED Lab Report: Chlamydia/GC APTIMA/[id number] - Microbiology Neisseria gonorrhoeae DNA probe NOT DETECTED NOT DETECTED Lab Report: Chlamydia/GC APTIMA/[id number], Urinalysis, Complete, with Reflex ... - Lab chlamydia DNA probe NOT DETECTED NOT DETECTED Lab Report: Chlamydia/GC [facility]TIMA/[id number], Urinalysis, Complete, with Reflex ... - Microbiology Neisseria gonorrhoeae DNA probe NOT DETECTED NOT DETECTED Lab Report: Chlamydia/GC APTIMA/[id number], Urinalysis, Complete, with Reflex ... - Urinalysis microalbumin/total urine volume 2 mg/L Units converted. See lab report for original value. microalbumin/creatinine ratio, urine 9 MCG/MG CREAT mg/L <30 Lab Report: Comp. Metabolic Panel - Chemistry sodium, serum 142 mmol/L 487-087 0464/06/08 carbon dioxide, venous blood 27.6 mmol/L 21.0-32.0 potassium, serum 4.0 mmol/L 3.5-5.2 chloride, serum 105 mmol/L 98-107 blood glucose 95 mg/dL 65-110 urea nitrogen, blood 8 mg/dL 7-18 creatinine, serum 0.75 mg/dL 0.55-1.30 alanine aminotransferase (SGPT), serum 49 U/L 12-78 aspartate aminotransferase (SGOT), serum 28 U/L 15-37 calcium, serum 9.4 mg/dL 8.5-10.1 bilirubin, serum, total 0.30 mg/dL 0.00-1.00 sodium, serum 140 mmol/L 787-399 8658/08/08 carbon dioxide, venous blood 33.7 mmol/L 21.0-32.0 [...] mg/dL Encounters Code Encounter Date Provider Facility CPT-56412 Level 3 Est. Patient 10:00:25 CDT Suzan Boo [facility] CPT-33920 Level 3 Est. Patient 10:29:30 CDT Suzan Boo [facility] CPT-74866 Level 3 Est. Patient 11:04:38 CDT Renzo Thornton DO [facility] CPT-46392 Level 3 Est. Patient 11:15:58 PBX TEACHER Renzo Thornton DO [facility] CPT-36118 Level 3 Est. Patient 15:28:23 PBX TEACHER Suzan Boo [facility] CPT-86129 Level 4 Est. Patient 10:20:54 PBX TEACHER Suzan Boo [facility] CPT-00723 Level 3 Est. Patient 11:47:37 PBX TEACHER Ahmet Carbajal MD [facility] CPT-31383 Level 3 Est. Patient 10:40:11 PBX TEACHER Ahmet Carbajal MD [facility] CPT-28835 Level 3 Est. Patient 15:07:06 PBX TEACHER Neeraj Collins MD [facility] CPT-07911 Level 4 Est. Patient 14:45:00 PBX TEACHER Ahmet Carbajal MD [facility]-46192 Level 3 Est. Patient 13:59:59 CDT Luigi Martínez [facility]-33835 Level 3 Est. Patient 18:18:53 CDT Neeraj Collins MD [facility] CPT-36931 Level 3 Est. Patient 15:50:44 CDT Vishal Hui MD [facility]-50834 Level 3 Est. Patient 11:36:17 CDT Ahmet Carbajal MD [facility] CPT-68964 Level 3 Est. Patient 13:29:16 CDT iVshal Hui MD [facility] CPT-37481 Level 3 Est. Patient 14:27:52 CDT Neeraj Collins MD [facility] CPT-42877 Level 3 Est. Patient 08:56:03 CDT Luigi Martínez [facility] CPT-67543 Level 4 Est. Patient 12:11:48 CDT Fabiola Johnson [facility] CPT-31617 Level 3 New Patient 16:53:37 CDT Albert Caldera MD [facility] CPT-80006 Level 3 Est. Patient 11:25:49 CDT Renzo Thornton [facility] CPT-12268 Level 3 Est. Patient 15:22:01 CDT Ahmet Carbajal MD [facility] CPT-04103 Level 4 Est. Patient 09:00:51 PBX TEACHER Vishal Hui MD [facility] CPT-67900 Level 3 Est. Patient 11:37:33 PBX TEACHER Vishal Hui MD [facility] CPT-25851 Level 3 Est. Patient 08:41:09 PBX TEACHER Vishal Hui MD [facility] CPT-83079 Level 4 Est. Patient 10:19:35 PBX TEACHER Vishal Hui MD [facility] CPT-02312 Level 3 Est. Patient 13:35:45 CDT Vishal Hui MD [facility] CPT-82304 Level 4 Est. Patient 10:08:37 CDT Vishal Hui MD [facility] CPT-06667 Level 3 Est. Patient 11:22:10 CDT Vishal Hui MD [facility] CPT-98917 Level 3 Est. Patient 11:03:32 CDT Sahara Rodriguez MD, PhD [facility] CPT-29617 Level 3 Est. Patient 09:41:35 CDT Vishal Hui MD [facility] CPT-18705 Level 3 Est. Patient 12:00:41 CDT Neeraj Collins MD [facility] CPT-07632 Level 3 Est. Patient 09:16:24 CDT Vishal Hui MD [facility] CPT-14525 Level 4 Est. Patient 13:59:09 CDT Neeraj Collins MD [facility] CPT-25821 Level 3 Est. Patient 15:19:43 CDT Renzo Thornton DO [facility] CPT-27339 Level 3 Est. Patient 18:10:26 CDT Sahara Rodriguez MD PhD [facility] CPT-02621 Level 3 Est. Patient 14:49:50 CDT Vishal Hui MD [facility] CPT-60943 Level 4 Est. Patient 18:41:46 CDT Neeraj Collins MD [facility] CPT-98494 Level 4 Est. Patient 09:18:38 PBX TEACHER Vishal Hui MD [facility] CPT-69462 Level 3 Est. Patient 14:43:55 PBX TEACHER Vishal Hui MD [facility] CPT-14374 Level 3 Est. Patient 15:26:33 PBX TEACHER Sahara Rodriguez MD [facility] CPT-71176 Level 3 Est. Patient 10:32:14 PBX TEACHER Vishal Hui MD [facility] CPT-50782 Level 3 Est. Patient 15:12:52 PBX TEACHER Vishal Hui MD [facility] CPT-75797 Level 4 Est. Patient 09:19:27 CDT Vishal Hui MD [facility] CPT-65913 Level 3 Est. Patient 15:53:00 CDT Renzo Thornton [facility] CPT-88720 Level 3 Est. Patient 15:50:30 CDT Renzo Thornton [facility] CPT-20215 Level 3 Est. Patient 16:55:24 CDT Vishal Hui MD [facility] Procedures Code Procedure Name Date Entry Date Standard Description CPT-80047 Abd compl w upright - XRAY USE ONLY 10:27:59 CDT 06/28 CPT-23551 Smoking Cessation counseling 11:15:58 PBX TEACHER CPT-G0439 [facility] Annual Wellness Exam 09:30:58 PBX TEACHER CPT-52711 TSH - LAB USE ONLY 08:50:26 PBX TEACHER CPT-43824 CBC - LAB USE ONLY 08:50:26 PBX TEACHER CPT-37943 Venipuncture Draw Fee 08:50:26 PBX TEACHER CPT-90335 Abx/Therapy Injection 17:34:30 PBX TEACHER CPT-71802 Nexplanon Removal with Reinsertion 14:09:32 CDT CPT-J7307 Nexplanon (Implant) 14:09:32 CDT CPT-OV Office Visit 14:09:32 CDT CPT-81634 UA w micro - LAB USE ONLY 16:21:13 CDT CPT-07009 [place] Mount - LAB USE ONLY 16:21:13 CDT CPT-89408 First Vx - Ix admin for Medicare patients 14:37:47 CDT CPT-20667 Fluzone Preservative Free Intramuscular Suspension 14:37 :47 CDT CPT-31617 Abx/Therapy Injection 13:54:22 CDT CPT-96127 Abx/Therapy Injection 08:47:09 CDT CPT-98473 Abx/Therapy Injection 13:29:56 CDT CPT-10163 Abx/Therapy Injection 08:36:16 CDT CPT-69509 [place] - LAB USE ONLY 17:44:58 CDT CPT-13297 UA w micro - LAB USE ONLY 17:44:58 CDT CPT-64207 CMP - LAB USE ONLY 17:44:58 CDT CPT-95175 Venipuncture Draw Fee 17:44:58 CDT CPT-80926 Cervical Min 4V - XRAY USE ONLY 09:01:40 CDT CPT-39106 Chest 2V Frontal and Lat - XRAY USE ONLY 11:06:31 CDT CPT-25352 EKG Trac and Interp - XRAY USE ONLY 11:31:43 CDT 08/26 CPT-J3420 Vitamin B12 1000mcg (Cyanocobalamin) 08:10:26 PBX TEACHER 04/12 CPT-43600 Abx/Therapy Injection 08:10:26 PBX TEACHER CPT-G0438 Initial Annual Wellness Exam 19:01:01 PBX TEACHER CPT-J3420 Vitamin B12 1000mcg (Cyanocobalamin) 16:57:46 CDT 08/14 CPT-09589 Recombivax HB Injection Suspension 5 MCG/0.5ML 08:37:50 PBX TEACHER CPT-19479 Immunization Single Admin 08:37:50 PBX TEACHER CPT-J3420 Vitamin B12 1000mcg (Cyanocobalamin) 08:32:16 PBX TEACHER 03/11 CPT-55033 Abx/Therapy Injection 08:32:16 PBX TEACHER CPT-29768 Chest 2V Frontal and Lat 11:46:38 PBX TEACHER CPT-59523 Venipuncture Draw Fee 09:12:45 PBX TEACHER CPT-J3420 Vitamin B12 1000mcg (Cyanocobalamin) 08:50:15 PBX TEACHER 02/08 CPT-32706 Abx/Therapy Injection 08:50:15 PBX TEACHER CPT-Cryo Cryotherapy 10:19:35 PBX TEACHER CPT-000 Give Appropriate Flu Vaccine 09:22:16 CDT CPT-J3420 Vitamin B12 1000mcg (Cyanocobalamin) 19:08:57 CDT 01/11 CPT-24940 Abx/Therapy Injection 19:08:57 CDT CPT-J3420 Vitamin B12 1000mcg (Cyanocobalamin) 08:19:08 CDT 12/11 CPT-17517 Abx/Therapy Injection 08:19:08 CDT CPT-J3420 Vitamin B12 1000mcg (Cyanocobalamin) 14:48:00 CDT 11/09 CPT-74293 Abx/Therapy Injection 14:47:59 CDT CPT-J3420 Vitamin B12 1000mcg (Cyanocobalamin) 08:34:04 CDT 10/09 CPT-69562 Abx/Therapy Injection 08:34:04 CDT CPT-J3420 Vitamin B12 1000mcg (Cyanocobalamin) 09:18:52 CDT 09/11 CPT-57562 Abx/Therapy Injection 09:18:52 CDT CPT-J3420 Vitamin B12 1000mcg (Cyanocobalamin) 08:35:44 CDT 09/04 CPT-53680 Abx/Therapy Injection 08:35:44 CDT CPT-14353 Immunization Single Admin 11:07:16 CDT CPT-79625 Hepatitis B adult IM 11:07:16 CDT CPT-J3420 Vitamin B12 1000mcg (Cyanocobalamin) 11:00:49 CDT 08/28 CPT-J1040 Depo Medrol 80 mg (Methyl Prednisolone Acetate) 11:00: 49 CDT CPT-26587 Abx/Therapy Injection 11:00:49 CDT CPT-J1040 Depo Medrol 80 mg (Methyl Prednisolone Acetate) 09:16: 23 CDT CPT-J3420 Vitamin B12 1000mcg (Cyanocobalamin) 08:27:05 CDT 08/20 CPT-57647 Abx/Therapy Injection 08:27:05 CDT CPT-84096 Recombivax HB Injection Suspension 5 MCG/0.5ML 10:00:41 CDT CPT-35244 Administration single or combination vaccine inc oral 10 :00:41 CDT CPT-54189 Sono transvag pelvis non OB uterus ovaries cervix 16:36: 57 CDT CPT-97385 LS spine comp w obliq 09:50:55 PBX TEACHER CPT-31084 Abd compl w upright 09:50:55 PBX TEACHER CPT-J1100 Decadron 4mg (Dexamethasone) 15:51:24 PBX TEACHER CPT-J1030 Depo Medrol 40 mg (Methyl Prednisolone Acetate) 15:51: 24 PBX TEACHER CPT-36589 Abx/Therapy Injection 15:51:24 PBX TEACHER CPT-J1100 Decadron 4mg (Dexamethasone) 15:26:33 PBX TEACHER CPT-J1030 Depo Medrol 40 mg (Methyl Prednisolone Acetate) 15:26: 33 PBX TEACHER CPT-77362 Sono retroperitoneal complete kidneys and bladder 17:15: 30 CDT CPT-43988 Abd compl w upright 16:09:25 CDT CPT-J1100 Decadron 8mg (Dexamethasone) 17:07:57 CDT CPT-22588 Abx/Therapy Injection 17:07:57 CDT CPT-J1100 Decadron 8mg (Dexamethasone) 16:55:24 CDT CPT-87514 Chest 2V Frontal and Lat 16:32:44 CDT
--- OUTSIDE RECORDS SUMMARY | 2016-11-05 00:06 | XMS REPORT ---
Author Author [facility] Medical Staff Organization [facility] Address [address] [place], [place] [id number] Phone [phone] Care Team Providers Care Sociology Adjunct Instructor Name Role Phone TINO ABRAMS MD PP [phone] Summary purpose TRANSITION OF CARE AUTO GENERATION [...] Status Finding Observation Time Abdomen Appearance round : Abdomen non-tender : Vick no :00 Urination normal : Quality sym/unlabored : Cough absent : Secretions no : Airway natural : Chest Tube no : Oxygen no :30 Temp >100.4 no : Temp <96.8 no : Chills with rigors no : HR > 90bpm no :00 Respirations > 20 no : Systolic <90 no : headache stiff neck no : Rapid Resp no :00 IV Site Location no iv access : [...]
--- OUTSIDE RECORDS SUMMARY | 2016-11-05 00:06 | XMS REPORT | Clinical Summary ---
Author Author Admin, E Organization [facility] [employer] Address Unknown Phone Unavailable Allergies, Adverse [...] sites Morbid obesity 278.01 Active Juliet Kimbrough PROPELLER ENGINEER Morbid obesity 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 Active Juliet Kimbrough PROPELLER ENGINEER Dependence on other enabling machines and [...] Shortness of breath 786.05 Active Fabiola Johnson PROPELLER ENGINEER Shortness of breath Nocturnal hypoxia 799.02 Active Fabiola Johnson PROPELLER ENGINEER Hypoxemia Neck pain 723.1 Active Luigi Martínez PROPELLER ENGINEER Cervicalgia Anxiety Disorder ICD-300.00 Inactive Vishal Hui [...] 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 Inactive Vishal Hui MD Vaginitis, candidal ICD-112.1 Jim Hui MD Other abnormal blood chemistry ICD-790.6 Inactive Vishal Hui MD Smoker/tobacco use disorder-smoking cessation discussed ICD-305.1 Inactive Vishal Hui MD Boils, recurrent ICD-680.9 [...] blood glucose ICD-790.29 Inactive Vishal Hui MD Headache, atypical ICD-784.0 [...] each nostril daily before bed. FLUTICASONE PROPIONATE 53922992792 Active Fabiola Johnson APRN Active VERAPAMIL HCL ER 120 MG ORAL CR-TABS 1 tab po daily for blood pressure 09/27 VERAPAMIL HCL 22072518939 Active Fabiola Johnson APRN Active ADZENYS XR-ODT 6.3 MG ORAL TBED 1 tab po daily for ADHD AMPHETAMINE 88298263626 Active Fabiola Johnson APRN Active BENADRYL 25 MG CAP 4 po at bedtime for insomnia DIPHENHYDRAMINE HCL 30646325190 Active Fabiola Johnson APRN Active KLONOPIN 1 MG ORAL TABS 1 tab po TID CLONAZEPAM 81993982430 Active Fabiola Johnson APRN Active VALIUM 5 MG TAB Take 1-2 tablets daily DIAZEPAM 23686240872 No Longer Active Fabiola Johnson APRN Active METOPROLOL TARTRATE 25 MG ORAL TABS 1/2 tablet twice daily for heart rate and blood pressure METOPROLOL TARTRATE 27647411094 No Longer Active Fabiola Johnson APRN Active MIRALAX ORAL POWD 17GMS DAILY IN WATER POLYETHYLENE GLYCOL 3350 80689825477 Active Vishal Hui MD Active VIIBRYD 10 MG ORAL TABS Take 1 tablet once a day VILAZODONE HCL 11207373529 Active Ahmet Carbajal MD Active DICLOFENAC POTASSIUM TABS Take 1 tablet twice a day (pt. is not sure of the dose.) DICLOFENAC POTASSIUM TABS 62350840346 Active Ahmet Carbajal MD Active MIRALAX PACK 1 po qd PRN Constipation POLYETHYLENE GLYCOL 3350 91518139308 No Longer Active Ahmet Carbajal MD Active MINIPRESS 2 MG CAPS 4 cap po at night PRAZOSIN HCL 50775060257 No Longer Active Ahmet Carbajal MD Active PIROXICAM 20 MG CAPS 1 cap po qd PRN Pain PIROXICAM 24478895637 No Longer Active Ahmet Carbajal MD Active TRAMADOL HCL 50 MG TABS 1-2 po TID PRN Pain TRAMADOL HCL 50337805958 No Longer Active Ahmet Carbajal MD Active METOPROLOL TARTRATE 50 MG TAB 1 po bid METOPROLOL TARTRATE 89055825987 No Longer Active Ahmet Carbajal MD Active ABILIFY 15 MG ORAL TABS 1 tab daily ARIPIPRAZOLE 95414360115 No Longer Active Ahmet Carbajal MD Active PROZAC 20 MG ORAL CAPS 1 tab daily FLUOXETINE HCL 02441750534 No Longer Active Ahmet Carbajal MD Active AMBIEN 5 MG ORAL TABS 1 tab at bedtime ZOLPIDEM TARTRATE 43767816171 No Longer Active Ahmet Carbajal MD Active PREDNISONE 20 MG TAB 2 tabs daily for 4 days, 1 tab daily for 4 days, 1/2 tab daily for 4 days PREDNISONE 91052524388 No Longer Active Ahmet Carbajal MD Active KEFLEX 500 MG CAP 1 po TID x 10 days CEPHALEXIN 90049650913 No Longer Active Vishal Hui MD Active ABILIFY MAINTENA 400 MG IM SUSR Injection once per month ARIPIPRAZOLE 56052207657 Active Juliet Kimbrough APRN Active IMITREX 50 MG ORAL TABS 1/2 tab every 6 hours prn SUMATRIPTAN SUCCINATE 77415471304 Active Jillina Mauricio NORIEGA Active TOPAMAX 50 MG ORAL TABS 1 tab twice daily TOPIRAMATE 02041860036 Active Vishal Hui MD Active SAPHRIS 5 MG SUBL 1 po bid ASENAPINE MALEATE 09133867487 No Longer Active Luigi Martínez APRN Active LATUDA 80 MG TABS Take one by mouth daily LURASIDONE HCL 37375557723 No Longer Active Luigi Martínez APRN Active AMLODIPINE BESYLATE 5 MG TABS 1 tablet by mouth daily AMLODIPINE BESYLATE 57325142352 No Longer Active Luigi Martínez APRN Active AMITRIPTYLINE HCL 100 MG TAB one at hs AMITRIPTYLINE HCL 99425684679 No Longer Active Vishal Hui MD Active TRAZODONE HCL 100 MG TAB take 1 at bedtime TRAZODONE HCL 98399217920 No Longer Active Vishal Hui MD Active VYVANSE 40 MG CAPS 1 daily, LISDEXAMFETAMINE DIMESYLATE 88670540884 No Longer Active Vishal Hui MD Active IBUPROFEN 600 MG TAB 1 po TID PRN IBUPROFEN 02909354662 No Longer Active Vishal Hui MD Active PROZAC 20 MG CAP Take one by mouth daily FLUOXETINE HCL 33762046033 No Longer Active Vishal Hui MD Active ZOFRAN 4 MG TABS 1 po q6hr PRN Nausea ONDANSETRON HCL Active Vishal Hui MD Active BACTRIM DS 800-160 MG TABS 1 pill by mouth twice daily SULFAMETHOXAZOLE-TRIMETHOPRIM 60396378997 No Longer Active Sahara Rodriguez MD PhD Active DIFLUCAN 150 MG TAB 1 tablet by mouth daily FLUCONAZOLE 09723256937 No Longer Active Vishal Hui MD Active TIZANIDINE HCL 4 MG TABS 1 po q6hr PRN Muscle Spasm/Back Pain TIZANIDINE HCL 82197296993 Active Luigi Martínez APRN Active CLINDAMYCIN HCL 150 MG CAPS 1 four times a day CLINDAMYCIN HCL 08890608875 No Longer Active Neeraj Collins MD Active KEFLEX 500 MG ORAL CAPS 1 cap QID by mouth CEPHALEXIN 46566293546 No Longer Active Neeraj Collins MD Active DIFLUCAN 150 MG TABS 1 pill every other day x 2 doses FLUCONAZOLE 50846671241 No Longer Active Sahara Rodriguez MD PhD Active MELATONIN 3 MG CAPS 2 po q hs MELATONIN 93368278269 No Longer Active Sahara Rodriguez MD PhD Active MULTIVITAMINS CAPS Take one by mouth daily MULTIPLE VITAMIN 39864005698 No Longer Active Sahara Rodriguez MD PhD Active BACTRIM DS 800-160 MG TAB 1 tab by mouth twice daily TRIMETHOPRIM-SULFAMETHOXAZOLE 44962203389 No Longer Active Sahara Rodriguez MD PhD Active [facility] PROBIOTIC ORAL CHEW 2 daily po PROBIOTIC PRODUCT 53919115612 No Longer Active Sahara Rodriguez MD PhD Active BACTRIM DS 800-160 MG TABS 1 po BID x 7 days SULFAMETHOXAZOLE-TRIMETHOPRIM 54966413298 No Longer Active Vishal Hui MD Active CHANTIX STARTING MONTH EARNEST 0.5 MG X 11 & 1 MG X 42 TABS 0.5mg daily for 3 days , then 0.5mg BID for 4 days, then 1mg BID VARENICLINE TARTRATE 37565676014 No Longer Active TAMARA Gray Active VERAPAMIL HCL CR 120 MG TAB CR 1 po bid VERAPAMIL HCL 22629442871 No Longer Active Vishal Hui MD Active METOPROLOL SUCCINATE 50 MG TB24 1 tablet by mouth daily METOPROLOL SUCCINATE 69133991757 No Longer Active Vishal Hui MD Active SAPHRIS 10 MG SUBL 1 tab po bid ASENAPINE MALEATE 71465157731 No Longer Active Vishal Hui MD Active LISINOPRIL 20 MG TABS 1 tab po qd LISINOPRIL 56403029353 No Longer Active Vishal Hui MD Active LATUDA 20 MG TABS Take one by mouth daily LURASIDONE HCL 85038894363 No Longer Active Vishal Hui MD Active TRAZODONE HCL 50 MG TABS 1/2 tab po qd prn for anxiety TRAZODONE HCL 65695890464 No Longer Active Vishal Hui MD Active OMEPRAZOLE 20 MG TBEC 1 po q a.m. 30min prior to first food intake OMEPRAZOLE 30609100300 Active Vishal Hui MD Active RANITIDINE HCL 150 MG CAPS 1 twice a day RANITIDINE HCL 99960521920 Active Luigi Swensondwightephraim LEANN Active LINZESS 290 MCG CAPS Take one by mouth daily LINACLOTIDE 03986225071 No Longer Active Vishal Hui MD Active SAPHRIS 5 MG SUBL 1 tab po qd ASENAPINE MALEATE 28777384065 No Longer Active Vishal Hui MD Active ZALEPLON 10 MG CAPS 1 cap po every other night ZALEPLON 00921099147 No Longer Active Vishal Hui MD Active LYRICA 50 MG CAPS 1 tab po TID PREGABALIN 06428068668 No Longer Active Vishal Hui MD Active LORATADINE 10 MG TABS 1 tab po qd LORATADINE 13860091598 No Longer Active Vishal Hui MD Active VERAPAMIL HCL ER 180 MG CR-TABS 1 tab po bid VERAPAMIL HCL 71117160895 No Longer Active Vishal Hui MD Active MIRALAX POWD 1 capfull once daily POLYETHYLENE GLYCOL 3350 81967501747 No Longer Active Vishal Hui MD Active PREDNISONE 20 MG TABS 1 tab po qd PREDNISONE 09114765847 No Longer Active Renzo Thornton DO Active LEVOFLOXACIN 500 MG TABS 1 tab po qd LEVOFLOXACIN 62870947165 No Longer Active Renzo Thornton DO Active BUSPIRONE HCL 15 MG TABS 1 tab po TID BUSPIRONE HCL 68340297516 No Longer Active Renzo Thornton DO Active BENZTROPINE MESYLATE 1 MG TABS 1 tab po qd BENZTROPINE MESYLATE 52164285762 No Longer Active Renzo Thornton DO Active ATENOLOL 25 MG TABS 1 tab po qd ATENOLOL 14974698315 No Longer Active Renzo Thornton DO Active ESCITALOPRAM OXALATE 20 MG TABS 1 tab po qd ESCITALOPRAM OXALATE 40415523012 No Longer Active Renzo Thornton DO Active ADVAIR DISKUS 250-50 MCG/DOSE AEPB 1 puff BID FLUTICASONE-SALMETEROL 78638361595 No Longer Active Renzo Thornton DO Active PREDNISONE 20 MG TAB 2 tabs daily for 3 days, 1 tab daily for 3 days, 1/2 tab daily for 2 days PREDNISONE 88811178417 No Longer Active Vishal Hui MD Active CEFDINIR 300 MG CAPS by mouth twice a day CEFDINIR 74275127892 No Longer Active Vishal Hui MD Active LANSOPRAZOLE 30 MG CPDR 1 cap po qd LANSOPRAZOLE 75343717871 No Longer Active Vishal Hui MD Active BACLOFEN 20 MG TABS 1 tab po tid BACLOFEN 04282881378 No Longer Active Vishal Hui MD Active ADVAIR DISKUS 250-50 MCG/DOSE AEPB 1 puff BID ADVAIR DISKUS 250-50 MCG/DOSE AEPB FLUTICASONE-SALMETEROL Inactive ESCITALOPRAM OXALATE 20 MG TABS 1 tab po qd ESCITALOPRAM OXALATE 20 MG TABS 979635 ESCITALOPRAM OXALATE Inactive ATENOLOL 25 MG TABS 1 tab po qd ATENOLOL 25 MG TABS 624888 ATENOLOL Inactive BENZTROPINE MESYLATE 1 MG TABS 1 tab po qd BENZTROPINE MESYLATE 1 MG TABS 321256 BENZTROPINE MESYLATE Inactive BUSPIRONE HCL 15 MG TABS 1 tab po TID BUSPIRONE HCL 15 MG TABS 234183 BUSPIRONE HCL Inactive LEVOFLOXACIN 500 MG TABS 1 tab po qd LEVOFLOXACIN 500 MG TABS 968639 LEVOFLOXACIN Inactive PREDNISONE 20 MG TABS 1 tab po qd PREDNISONE 20 MG TABS 433728 PREDNISONE Inactive MIRALAX POWD 1 capfull once daily MIRALAX POWD 733628 POLYETHYLENE GLYCOL 3350 Inactive VERAPAMIL HCL ER 180 MG CR-TABS 1 tab po bid VERAPAMIL HCL ER 180 MG CR-TABS VERAPAMIL HCL Inactive LORATADINE 10 MG TABS 1 tab po qd LORATADINE 10 MG TABS 083738 LORATADINE Inactive LYRICA 50 MG CAPS 1 tab po TID LYRICA 50 MG CAPS PREGABALIN Inactive ZALEPLON 10 MG CAPS 1 cap po every other night ZALEPLON 10 MG CAPS 908080 ZALEPLON Inactive SAPHRIS 5 MG SUBL 1 tab po qd SAPHRIS 5 MG SUBL ASENAPINE MALEATE Inactive TRAZODONE HCL 50 MG TABS 1/2 tab po qd prn for anxiety TRAZODONE HCL 50 MG TABS 483347 TRAZODONE HCL Inactive LATUDA 20 MG TABS Take one by mouth daily LATUDA 20 MG TABS LURASIDONE HCL Inactive LISINOPRIL 20 MG TABS 1 tab po qd LISINOPRIL 20 MG TABS 768780 LISINOPRIL Inactive SAPHRIS 10 MG SUBL 1 [...] twice daily BACTRIM DS 800-160 MG TAB 715983 TRIMETHOPRIM-SULFAMETHOXAZOLE Inactive MULTIVITAMINS CAPS Take one by mouth daily MULTIVITAMINS CAPS MULTIPLE VITAMIN Inactive MELATONIN 3 MG CAPS 2 po q hs MELATONIN 3 MG CAPS 19950526 MELATONIN Inactive KEFLEX 500 MG ORAL CAPS 1 cap QID by mouth KEFLEX 500 MG ORAL CAPS 043631 CEPHALEXIN Inactive CLINDAMYCIN HCL 150 MG CAPS 1 four times a day CLINDAMYCIN HCL 150 MG CAPS 19740326 CLINDAMYCIN HCL Inactive DIFLUCAN 150 MG TAB 1 tablet by mouth daily DIFLUCAN 150 MG TAB 530087 FLUCONAZOLE Inactive PROZAC 20 MG CAP Take one by mouth daily PROZAC 20 MG CAP 418763 FLUOXETINE HCL Inactive IBUPROFEN 600 MG TAB 1 po TID PRN IBUPROFEN 600 MG TAB 019517 IBUPROFEN Inactive VYVANSE 40 MG CAPS 1 daily, VYVANSE 40 MG CAPS LISDEXAMFETAMINE DIMESYLATE Inactive TRAZODONE HCL 100 MG TAB take 1 at bedtime TRAZODONE HCL 100 MG TAB 046728 TRAZODONE HCL Inactive AMITRIPTYLINE HCL 100 MG TAB one at hs AMITRIPTYLINE HCL 100 MG TAB 047622 AMITRIPTYLINE HCL Inactive AMLODIPINE BESYLATE 5 MG TABS 1 tablet by mouth daily AMLODIPINE BESYLATE 5 MG TABS 554618 AMLODIPINE BESYLATE Inactive LATUDA 80 MG TABS Take one by mouth daily LATUDA 80 MG TABS LURASIDONE HCL Inactive SAPHRIS 5 MG SUBL 1 po bid SAPHRIS 5 MG SUBL ASENAPINE MALEATE Inactive PREDNISONE 20 MG TAB 2 tabs daily for 4 days, 1 tab daily for 4 days, 1/2 tab daily for 4 days PREDNISONE 20 MG TAB 808715 PREDNISONE Inactive AMBIEN 5 MG ORAL TABS 1 tab at bedtime AMBIEN 5 MG ORAL TABS 525495 ZOLPIDEM TARTRATE Inactive PROZAC 20 MG ORAL CAPS 1 tab daily PROZAC 20 MG ORAL CAPS 282511 FLUOXETINE HCL Inactive ABILIFY 15 MG ORAL TABS 1 tab daily ABILIFY 15 MG ORAL TABS 552647 ARIPIPRAZOLE Inactive METOPROLOL TARTRATE 50 MG TAB 1 po bid METOPROLOL TARTRATE 50 MG TAB 917898 METOPROLOL TARTRATE Inactive TRAMADOL HCL 50 MG TABS 1-2 po TID PRN Pain TRAMADOL HCL 50 MG TABS 809617 TRAMADOL HCL Inactive PIROXICAM 20 MG CAPS 1 cap po qd PRN Pain PIROXICAM 20 MG CAPS 744299 PIROXICAM Inactive MINIPRESS 2 MG CAPS 4 cap po at night MINIPRESS 2 MG CAPS 771989 PRAZOSIN HCL Inactive MIRALAX PACK 1 po qd PRN Constipation MIRALAX PACK 616241 POLYETHYLENE GLYCOL 3350 Inactive METOPROLOL TARTRATE 25 MG ORAL TABS 1/2 tablet twice daily for heart rate and blood pressure METOPROLOL TARTRATE 25 MG ORAL TABS 738475 METOPROLOL TARTRATE Inactive VALIUM 5 MG TAB Take 1-2 tablets daily VALIUM 5 MG TAB 716870 DIAZEPAM Inactive CEFDINIR 300 MG CAPS by mouth twice a day CEFDINIR 300 MG CAPS 556440 CEFDINIR Inactive PREDNISONE 20 MG TAB 2 tabs daily for 3 days, 1 tab daily for 3 days, 1/2 tab daily for 2 days PREDNISONE 20 MG TAB 466141 PREDNISONE Inactive BACTRIM DS 800-160 MG TABS [...] x 10 days KEFLEX 500 MG CAP 912146 CEPHALEXIN Inactive Advance Directives Directive Description Start [...] pressure, diastolic - 8462-4 83 mm[Hg] BP cmnally blood pressure, systolic - 8480-6 127 mm[Hg] [...] % 11.6-14.8 platelet count 394 10^3/MM^3 10*3/mm3 552-521 6454/12/22 erythrocyte (RBC) count 4.19 10^6/MM^3 10*6/mm3 4.04-5.48 [...] % 11.6-14.8 platelet count 379 10^3/MM^3 10*3/mm3 621-212 6568/12/11 neutrophils as percent of blood leukocytes 58.9 % 42.2-75.2 monocytes as percent of blood leukocytes 8.1 % 1.7-9.3 lymphocytes as percent of blood leukocytes 29.2 % 20.5-51.1 erythrocyte (RBC) count 4.26 10^6/MM^3 10*6/mm3 4.04-5.48 hemoglobin, blood 13.6 g/dL 12.0-16.0 Lab Report: CBC W/DIFF, Comp. Metabolic Panel, HGBA1C, Lipid Panel - Chemistry sodium, serum 139 mmol/L 107-233 7053/12/03 carbon dioxide, venous blood 28.5 mmol/L [...] 5.5 % 4.3-6.0 cholesterol, serum 159 mg/dL 380-514 2847/12/03 triglyceride, serum, fasting 118 mg/dL 30-200 HDL [...] Panel - Chemistry sodium, serum 139 mmol/L 856-520 3003/12/22 creatinine, serum 0.90 mg/dL 0.55-1.30 alanine aminotransferase (SGPT), serum 38 U/L aspartate aminotransferase (SGOT), serum 19 U/L 15-37 calcium, serum 8.6 mg/dL 8.5-10.1 bilirubin, serum, total 0.30 mg/dL 0.00-1.00 carbon dioxide, venous blood 26.8 mmol/L 21.0-32.0 potassium, serum 4.2 mmol/L 3.5-5.2 chloride, serum 103 mmol/L 98-107 blood glucose 115 mg/dL 65-110 urea nitrogen, blood 20 mg/dL 7-18 sodium, serum 139 mmol/L 358-724 1292/01/11 carbon dioxide, venous blood 26.6 mmol/L 21.0-32.0 potassium, serum 4.1 mmol/L 3.5-5.2 chloride, serum 100 mmol/L 98-107 blood glucose 86 mg/dL 65-110 urea nitrogen, blood 16 mg/dL 7-18 creatinine, serum 1.00 mg/dL 0.55-1.30 alanine aminotransferase (SGPT), serum 48 U/L aspartate aminotransferase (SGOT), serum 17 U/L 15-37 calcium, serum 9.1 mg/dL 8.5-10.1 bilirubin, serum, total 0.40 mg/dL 0.00-1.00 sodium, serum 142 mmol/L 917-346 3313/06/08 carbon dioxide, venous blood 27.6 mmol/L 21.0-32.0 [...] Rate - Chemistry sodium, serum 139 mmol/L 728-633 6168/12/11 creatinine, serum 0.96 mg/dL 0.55-1.30 alanine aminotransferase [...] 0.98 ng/dL 0.76-1.46 TSH 1.48 m[iU]/mL 0.36-3.74 TSH 2.35 m[iU]/mL 0.36-3.74 thyroxine, serum, free [...] mg/dL Encounters Code Encounter Date Provider Facility CPT-55499 Level 3 Est. Patient 08:56:03 CDT Luigi Martínez [facility] CPT-89097 Level 4 Est. Patient 12:11:48 CDT Fabiola Johnson [facility] CPT-51855 Level 3 New Patient 16:53:37 CDT Albert Caldera MD [facility] CPT-16847 Level 3 Est. Patient 11:25:49 CDT Renzo Thornton DO [facility] CPT-31055 Level 3 Est. Patient 15:22:01 CDT Ahmet Carbajal MD [facility] CPT-75291 Level 4 Est. Patient 09:00:51 AMMONIUM NITRATE NEUTRALIZER Vishal Hui MD [facility] CPT-11314 Level 3 Est. Patient 11:37:33 AMMONIUM NITRATE NEUTRALIZER Vishal Hui MD [facility] CPT-84154 Level 3 Est. Patient 08:41:09 AMMONIUM NITRATE NEUTRALIZER Vishal Hui MD [facility] CPT-20839 Level 4 Est. Patient 10:19:35 AMMONIUM NITRATE NEUTRALIZER Vishal Hui MD [facility] CPT-90389 Level 3 Est. Patient 13:35:45 CDT Vishal Hui MD [facility] CPT-32880 Level 4 Est. Patient 10:08:37 CDT Vishal Hui MD [facility] CPT-99693 Level 3 Est. Patient 11:22:10 CDT Vishal Hui MD [facility] CPT-43511 Level 3 Est. Patient 11:03:32 CDT Sahara Rodriguez MD [facility]-78304 Level 3 Est. Patient 09:41:35 CDT Vishal Hui MD [facility] CPT-23539 Level 3 Est. Patient 12:00:41 CDT Neeraj Collins MD [facility]-48539 Level 3 Est. Patient 09:16:24 CDT Vishal Hui MD [facility] CPT-81383 Level 4 Est. Patient 13:59:09 CDT Neeraj Collins MD [facility] CPT-06842 Level 3 Est. Patient 15:19:43 CDT Renzo Thornton DO [facility] CPT-48716 Level 3 Est. Patient 18:10:26 CDT Sahara Rodriguez MD [facility] [place][note 2]-24090 Level 3 Est. Patient 14:49:50 CDT Vishal Hui MD [facility]-66095 Level 4 Est. Patient 18:41:46 CDT Neeraj Collins MD [facility]-75839 Level 4 Est. Patient 09:18:38 AMMONIUM NITRATE NEUTRALIZER Vishal Hui MD [facility] CPT-63664 Level 3 Est. Patient 14:43:55 AMMONIUM NITRATE NEUTRALIZER Vishal Hui MD [facility]-43537 Level 3 Est. Patient 15:26:33 AMMONIUM NITRATE NEUTRALIZER Sahara Rodriguez MD [facility] [place][note 2]-73476 Level 3 Est. Patient 10:32:14 AMMONIUM NITRATE NEUTRALIZER Vishal Hui MD [facility] CPT-58367 Level 3 Est. Patient 15:12:52 AMMONIUM NITRATE NEUTRALIZER Vishal Hui MD [facility] CPT-81313 Level 4 Est. Patient 09:19:27 CDT Vishal Hui MD [facility] CPT-49621 Level 3 Est. Patient 15:53:00 CDT Renzo Thornton [facility] CPT-15087 Level 3 Est. Patient 15:50:30 CDT Renzo Thornton [facility] CPT-02458 Level 3 Est. Patient 16:55:24 CDT Vishal Hui MD [facility] Procedures Code Procedure Name Date Entry Date Standard Description CPT-41535 Cervical Min 4V - XRAY USE ONLY 09:01:40 CDT CPT-51581 Chest 2V Frontal and Lat - XRAY USE ONLY 11:06:31 CDT CPT-51109 EKG Trac and Interp - XRAY USE ONLY 11:31:43 CDT 08/26 CPT-J3420 Vitamin B12 1000mcg (Cyanocobalamin) 08:10:26 AMMONIUM NITRATE NEUTRALIZER 04/12 CPT-10903 Abx/Therapy Injection 08:10:26 AMMONIUM NITRATE NEUTRALIZER CPT-G0438 Initial Annual Wellness Exam 19:01:01 AMMONIUM NITRATE NEUTRALIZER CPT-J3420 Vitamin B12 1000mcg (Cyanocobalamin) 16:57:46 CDT 08/14 CPT-71597 Recombivax HB Injection Suspension 5 MCG/0.5ML 08:37:50 AMMONIUM NITRATE NEUTRALIZER CPT-92778 Immunization Single Admin 08:37:50 AMMONIUM NITRATE NEUTRALIZER CPT-J3420 Vitamin B12 1000mcg (Cyanocobalamin) 08:32:16 AMMONIUM NITRATE NEUTRALIZER 03/11 CPT-30912 Abx/Therapy Injection 08:32:16 AMMONIUM NITRATE NEUTRALIZER CPT-69379 Chest 2V Frontal and Lat 11:46:38 AMMONIUM NITRATE NEUTRALIZER CPT-37744 Venipuncture Draw Fee 09:12:45 AMMONIUM NITRATE NEUTRALIZER CPT-J3420 Vitamin B12 1000mcg (Cyanocobalamin) 08:50:15 AMMONIUM NITRATE NEUTRALIZER 02/08 CPT-76462 Abx/Therapy Injection 08:50:15 AMMONIUM NITRATE NEUTRALIZER CPT-Cryo Cryotherapy 10:19:35 AMMONIUM NITRATE NEUTRALIZER CPT-000 Give Appropriate Flu Vaccine 09:22:16 CDT CPT-J3420 Vitamin B12 1000mcg (Cyanocobalamin) 19:08:57 CDT 01/11 CPT-27769 Abx/Therapy Injection 19:08:57 CDT CPT-J3420 Vitamin B12 1000mcg (Cyanocobalamin) 08:19:08 CDT 12/11 CPT-26029 Abx/Therapy Injection 08:19:08 CDT CPT-J3420 Vitamin B12 1000mcg (Cyanocobalamin) 14:48:00 CDT 11/09 CPT-21329 Abx/Therapy Injection 14:47:59 CDT CPT-J3420 Vitamin B12 1000mcg (Cyanocobalamin) 08:34:04 CDT 10/09 CPT-34032 Abx/Therapy Injection 08:34:04 CDT CPT-J3420 Vitamin B12 1000mcg (Cyanocobalamin) 09:18:52 CDT 09/11 CPT-27674 Abx/Therapy Injection 09:18:52 CDT CPT-J3420 Vitamin B12 1000mcg (Cyanocobalamin) 08:35:44 CDT 09/04 CPT-19676 Abx/Therapy Injection 08:35:44 CDT CPT-66853 Immunization Single Admin 11:07:16 CDT CPT-18493 Hepatitis B adult IM 11:07:16 CDT CPT-J3420 Vitamin B12 1000mcg (Cyanocobalamin) 11:00:49 CDT 08/28 CPT-J1040 Depo Medrol 80 mg (Methyl Prednisolone Acetate) 11:00: 49 CDT CPT-55295 Abx/Therapy Injection 11:00:49 CDT CPT-J1040 Depo Medrol 80 mg (Methyl Prednisolone Acetate) 09:16: 23 CDT CPT-J3420 Vitamin B12 1000mcg (Cyanocobalamin) 08:27:05 CDT 08/20 CPT-55600 Abx/Therapy Injection 08:27:05 CDT CPT-64306 Recombivax HB Injection Suspension 5 MCG/0.5ML 10:00:41 CDT CPT-29371 Administration single or combination vaccine inc oral 10 :00:41 CDT CPT-65081 Sono transvag pelvis non OB uterus ovaries cervix 16:36: 57 CDT CPT-11069 LS spine comp w obliq 09:50:55 AMMONIUM NITRATE NEUTRALIZER CPT-94573 Abd compl w upright 09:50:55 AMMONIUM NITRATE NEUTRALIZER CPT-J1100 Decadron 4mg (Dexamethasone) 15:51:24 AMMONIUM NITRATE NEUTRALIZER CPT-J1030 Depo Medrol 40 mg (Methyl Prednisolone Acetate) 15:51: 24 AMMONIUM NITRATE NEUTRALIZER CPT-70100 Abx/Therapy Injection 15:51:24 AMMONIUM NITRATE NEUTRALIZER CPT-J1100 Decadron 4mg (Dexamethasone) 15:26:33 AMMONIUM NITRATE NEUTRALIZER CPT-J1030 Depo Medrol 40 mg (Methyl Prednisolone Acetate) 15:26: 33 AMMONIUM NITRATE NEUTRALIZER CPT-72855 Sono retroperitoneal complete kidneys and bladder 17:15: 30 CDT CPT-38070 Abd compl w upright 16:09:25 CDT CPT-J1100 Decadron 8mg (Dexamethasone) 17:07:57 CDT CPT-72481 Abx/Therapy Injection 17:07:57 CDT CPT-J1100 Decadron 8mg (Dexamethasone) 16:55:24 CDT CPT-49907 Chest 2V Frontal and Lat 16:32:44 CDT
--- OUTSIDE RECORDS SUMMARY | 2016-11-05 00:09 | XMS REPORT ---
Author Author [email or web address] Medical Staff Organization [facility] Address [address] [place], [place] [address] Phone [phone] Summary purpose TRANSITION OF CARE AUTO GENERATION [...]
--- OUTSIDE RECORDS SUMMARY | 2016-11-05 00:09 | XMS REPORT | Clinical Summary ---
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 LINACLOTIDE 47610917307 No Longer Active Sheila Calderon LPN Active AMITIZA 8 MCG ORAL CAPS 1 tab BID LUBIPROSTONE 21595967304 No Longer Active Lynda Xiao C4 PLANNER Active DIFLUCAN 150 MG TABS 1 by mouth for yeast FLUCONAZOLE 52522458155 Active Suzan Boo APRN Active LACTULOSE 10 GM/15ML ORAL SOLN 30mL oral BID for IBS-C LACTULOSE 44748030857 Active Suzan Boo APRN Active BACTRIM DS 800-160 MG TABS 1 twice a day SULFAMETHOXAZOLE- TRIMETHOPRIM 96942305135 Active Lynda Larryl C4 PLANNER Active MUPIROCIN 2 % OINT apply twice a day MUPIROCIN 45375724090 Active Suzan Boo APRN Active TESSALON PERLES 100 MG CAPS 1 three times a day as needed for cough BENZONATATE 73109854525 No Longer Active Suzan Boo APRN Active BACTRIM DS 800-160 MG TABS 1 twice a day SULFAMETHOXAZOLE-TRIMETHOPRIM 29819932396 No Longer Active Suzan Boo APRN Active DIFLUCAN 150 MG TABS 1 by mouth for yeast FLUCONAZOLE 38114676472 No Longer Active Suzan Boo APRN Active EQ NICOTINE 21 MG/24HR TRANS PT24 Apply daily to stop smoking NICOTINE 10070025213 No Longer Active Suzan Boo APRN Active PREDNISONE 10 MG TABS 2 daily for 5 days then 1 daily for 5 days PREDNISONE 53106068291 No Longer Active Suzan Boo APRN Active LEVAQUIN 500 MG TABS 1 daily for infection LEVOFLOXACIN 06453896787 No Longer Active Suzan Boo APRN Active TROPICAMIDE 0.5 % OPHTH SOLN 1 drop PRN eye spasms TROPICAMIDE 45888325389 No Longer Active Suzan Boo APRN Active PREDNISONE 20 MG TAB 1 tablet daily x 4 days PREDNISONE 89909659038 No Longer Active Suzan Boo APRN Active ACETAMINOPHEN-CODEINE 120-12 MG/5ML SOLN 5 ml by mouth every 4-6 hours if needed for cough ACETAMINOPHEN-CODEINE 32530118462 No Longer Active Suzan Boo APRN Active KEFLEX 500 MG CAP 1 po qid CEPHALEXIN 92949904097 No Longer Active Suzan Boo APRN Active FLOVENT HFA 110 MCG/ACT AERO 2 puffs inhaled b.i.d. FLUTICASONE PROPIONATE HFA 12872509760 Active Renzo Thornton DO Active RISPERDAL 4 MG ORAL TABS 1 tab at bedtime RISPERIDONE 25723243322 Active Samantha Rothman RMA Active ZOFRAN 4 MG TABS 1 po q6hr PRN Nausea ONDANSETRON HCL No Longer Active Suzan Boo APRN Active FLUTICASONE PROPIONATE 50 MCG/ACT SUSP 2 sprays each nostril daily before bed. FLUTICASONE PROPIONATE 00950684314 No Longer Active Suzan Boo APRN Active ASPIRIN 325 MG ORAL TABS 1 tab q.d ASPIRIN 04060209298 No Longer Active Suzan Boo APRN Active HALOPERIDOL 10 MG ORAL TABS 1 tab q.d HALOPERIDOL 91201373107 No Longer Active Suzan Boo APRN Active GUAIFENESIN-CODEINE 100-10 MG/5ML SYRP 5ml every 4 to 6 hours as needed for cough GUAIFENESIN-CODEINE 63545368210 No Longer Active Suzan Boo APRN Active ZITHROMAX Z-EARNEST 250 MG TABS 2 today and then 1 daily for 4 days AZITHROMYCIN 97181079195 No Longer Active Suzan Boo APRN Active CLONAZEPAM 1 MG ORAL TABS 1 twice a day and an additional 1 tablet every other day as needed for pseudoseizures or anxiety CLONAZEPAM 21248239592 Active Suzan Boo APRN Active HYDROCODONE-ACETAMINOPHEN 5-325 MG ORAL TABS 1 tab two times a day HYDROCODONE-ACETAMINOPHEN 54161204959 No Longer Active Ahmet Carbajal MD Active LAMICTAL 100 MG ORAL TABS 1 tab 2 times qd. LAMOTRIGINE 82864040829 Active Ahmet Carbajal MD Active PREDNISONE 20 MG TABS 2 daily for 5 days then 1 daily for 5 days PREDNISONE 93642852085 No Longer Active Ahmet Carbajal MD Active FLUTICASONE PROPIONATE 50 MCG/ACT SUSP 1 to 2 sprays each nostril daily for allergies FLUTICASONE PROPIONATE 76518499987 Active Tila Valenzuela Active BENADRYL 25 MG CAP 4 po at bedtime for insomnia DIPHENHYDRAMINE HCL 35684264966 No Longer Active Ahmet Carbajal MD Active ADVAIR DISKUS 250-50 MCG/DOSE INH AEPB 1 puff twice a day for asthma FLUTICASONE-SALMETEROL 12514952387 No Longer Active Ahmet Carbajal MD Active KLONOPIN 1 MG ORAL TABS 1 tab po TID CLONAZEPAM 48555520001 No Longer Active Ahmet Carbajal MD Active ABILIFY MAINTENA 400 MG IM SUSR 400mg injection every 26 days ARIPIPRAZOLE 07273427014 No Longer Active Ahmet Carbajal MD Active TRAMADOL HCL 50 MG TABS 1/2-1 tab TID PRN TRAMADOL HCL 09462107482 No Longer Active Ahmet Carbajal MD Active BACTRIM DS 800-160 MG TABS 1 twice a day SULFAMETHOXAZOLE- TRIMETHOPRIM 62556327022 No Longer Active Ahmet Carbajal MD Active PROAIR HFA 108 (90 BASE) MCG/ACT AERS 2 puffs four times a day as needed 2015 ALBUTEROL SULFATE 02793395768 Active Honey Hinton APRN Active MONISTAT 7 COMBO PACK WOODROW 100 & 2 MG-% (9GM) VAG KIT 1 applicatorful per vagina q pm x 7 MICONAZOLE NITRATE 21972148889 No Longer Active Ahmet Carbajal MD Active FLAGYL 500 MG TAB 1 tablet by mouth bid METRONIDAZOLE 78580858962 No Longer Active Ahmet Carbajal MD Active OXYCODONE HCL ER 10 MG ORAL T12A 1/2 tab by mouth every 4 hours prn OXYCODONE HCL 76084468582 No Longer Active Ahmet Carbajal MD Active METHYLPREDNISOLONE 4 MG ORAL TABS po daily METHYLPREDNISOLONE 42167170091 No Longer Active Ahmet Carbajal MD Active LEVOFLOXACIN 500 MG ORAL TABS po daily LEVOFLOXACIN 06232765369 No Longer Active Ahmet Carbajal MD Active VIIBRYD 10 MG ORAL TABS Take 1 tablet once a day VILAZODONE HCL 50371200440 No Longer Active Ahmet Carbajal MD Active TOPAMAX 50 MG ORAL TABS 1 tab twice daily TOPIRAMATE 61904566647 No Longer Active Ahmet Carbajal MD Active DICLOFENAC SODIUM 50 MG TBEC 1 tablet by mouth four times daily PRN Pain 2015 DICLOFENAC SODIUM 33413804391 No Longer Active Ahmet Carbajal MD Active ADZENYS XR-ODT 6.3 MG ORAL TBED 1 tab po daily for ADHD AMPHETAMINE 10934551276 No Longer Active Ahmet Carbajal MD Active CHANTIX 1 MG TABS 1 twice a day to help quit smoking VARENICLINE TARTRATE 87017024273 No Longer Active Dipika Burgos MD Active CHANTIX STARTING MONTH EARNEST 0.5 MG X 11 & 1 MG X 42 TABS take as directed 2015 VARENICLINE TARTRATE 47795614893 No Longer Active Dipika Burgos MD Active TESSALON PERLES 100 MG CAP 1 to 2 tablets by mouth 3 times daily as needed for cough BENZONATATE 13932034551 No Longer Active Luigi Martínez APRN Active IMITREX 50 MG ORAL TABS 0.5 po x 1 PRN Headache. May repeat dose x 1 in 2 hours if needed SUMATRIPTAN SUCCINATE 32629262447 Active Ahmet Carbajal MD Active HYDROCODONE-ACETAMINOPHEN 5-325 MG TABS 1 to 2 four times a day as needed for pain use until can be seen by specialist HYDROCODONE- ACETAMINOPHEN 37731989333 No Longer Active Vishal Hui MD Active PROAIR HFA 108 (90 BASE) MCG/ACT AERS 2 puffs four times a day as needed 2015 ALBUTEROL SULFATE 00739527474 No Longer Active Vishal Hui MD Active PREDNISONE 20 MG TABS 2 daily for 5 days then 1 daily for 5 days PREDNISONE 85962000328 No Longer Active Vishal Hui MD Active ZITHROMAX Z-EARNEST 250 MG TABS 2 today and then 1 daily for 4 days AZITHROMYCIN 99219691021 No Longer Active Vishal Hui MD Active DICLOFENAC POTASSIUM TABS Take 1 tablet twice a day (pt. is not sure of the dose.) DICLOFENAC POTASSIUM TABS 12172978035 No Longer Active Vishal Hui MD Active VERAPAMIL HCL ER 120 MG ORAL CR-TABS Take 1 tablet by mouth twice a day. VERAPAMIL HCL 33529572408 Active Vishal Hui MD Active FLAGYL 500 MG TAB 1 tablet by mouth bid METRONIDAZOLE 76864706469 No Longer Active Vishal Hui MD Active VALIUM 5 MG TAB Take 1-2 tablets daily DIAZEPAM 70596619013 No Longer Active Fabiola Johnson APRN Active METOPROLOL TARTRATE 25 MG ORAL TABS 1/2 tablet twice daily for heart rate and blood pressure METOPROLOL TARTRATE 30866698938 No Longer Active Fabiola Johnson APRN Active MIRALAX ORAL POWD 17GMS DAILY IN WATER POLYETHYLENE GLYCOL 3350 85131913722 Active TAMRAA Casey Active MIRALAX PACK 1 po qd PRN Constipation POLYETHYLENE GLYCOL 3350 01391339977 No Longer Active Ahmet Carbajal MD Active MINIPRESS 2 MG CAPS 4 cap po at night PRAZOSIN HCL 18458867466 No Longer Active Ahmet Carbajal MD Active PIROXICAM 20 MG CAPS 1 cap po qd PRN Pain PIROXICAM 37541931721 No Longer Active Ahmet Carbajal MD Active TRAMADOL HCL 50 MG TABS 1-2 po TID PRN Pain TRAMADOL HCL 67175970946 No Longer Active Ahmet Carbajal MD Active METOPROLOL TARTRATE 50 MG TAB 1 po bid METOPROLOL TARTRATE 50235047776 No Longer Active Ahmet Carbajal MD Active ABILIFY 15 MG ORAL TABS 1 tab daily ARIPIPRAZOLE 44322184562 No Longer Active Ahmet Carbajal MD Active PROZAC 20 MG ORAL CAPS 1 tab daily FLUOXETINE HCL 09076486358 No Longer Active Ahmet Carbajal MD Active AMBIEN 5 MG ORAL TABS 1 tab at bedtime ZOLPIDEM TARTRATE 42230070616 No Longer Active Ahmet Carbajal MD Active PREDNISONE 20 MG TAB 2 tabs daily for 4 days, 1 tab daily for 4 days, 1/2 tab daily for 4 days PREDNISONE 31074614195 No Longer Active Ahmet Carbajal MD Active KEFLEX 500 MG CAP 1 po TID x 10 days CEPHALEXIN 11582404721 No Longer Active Vishal Hui MD Active SAPHRIS 5 MG SUBL 1 po bid ASENAPINE MALEATE 83264518417 No Longer Active Luigi Martínez APRN Active LATUDA 80 MG TABS Take one by mouth daily LURASIDONE HCL 79678411436 No Longer Active Jillina Fralebron NORIEGA Active AMLODIPINE BESYLATE 5 MG TABS 1 tablet by mouth daily AMLODIPINE BESYLATE 06558482776 No Longer Active Jillina Fralebron NORIEGA Active AMITRIPTYLINE HCL 100 MG TAB one at hs AMITRIPTYLINE HCL 97223453841 No Longer Active Vishal Hui MD Active TRAZODONE HCL 100 MG TAB take 1 at bedtime TRAZODONE HCL 24378972907 No Longer Active Vishal Hui MD Active VYVANSE 40 MG CAPS 1 daily, LISDEXAMFETAMINE DIMESYLATE 97173279276 No Longer Active Vishal Hui MD Active IBUPROFEN 600 MG TAB 1 po TID PRN IBUPROFEN 47189715968 No Longer Active Vishal Hui MD Active PROZAC 20 MG CAP Take one by mouth daily FLUOXETINE HCL 44087116041 No Longer Active Vishal Hui MD Active BACTRIM DS 800-160 MG TABS 1 pill by mouth twice daily SULFAMETHOXAZOLE-TRIMETHOPRIM 30672716172 No Longer Active Sahara Rodriguez MD PhD Active DIFLUCAN 150 MG TAB 1 tablet by mouth daily FLUCONAZOLE 37940072391 No Longer Active Vishal Hui MD Active TIZANIDINE HCL 4 MG TABS 1 po q6hr PRN Muscle Spasm/Back Pain TIZANIDINE HCL 64602869594 Active TAMARA Casey Active CLINDAMYCIN HCL 150 MG CAPS 1 four times a day CLINDAMYCIN HCL 12551902785 No Longer Active Neeraj Collins MD Active KEFLEX 500 MG ORAL CAPS 1 cap QID by mouth CEPHALEXIN 61621536690 No Longer Active Neeraj Collins MD Active DIFLUCAN 150 MG TABS 1 pill every other day x 2 doses FLUCONAZOLE 62452943918 No Longer Active Sahara Rodriguez MD PhD Active MELATONIN 3 MG CAPS 2 po q hs MELATONIN 39559816248 No Longer Active Sahara Rodriguez MD PhD Active MULTIVITAMINS CAPS Take one by mouth daily MULTIPLE VITAMIN 28658915353 No Longer Active Sahara Rodriguez MD PhD Active BACTRIM DS 800-160 MG TAB 1 tab by mouth twice daily TRIMETHOPRIM-SULFAMETHOXAZOLE 75541356592 No Longer Active Sahara Rodriguez MD PhD Active [facility] PROBIOTIC ORAL CHEW 2 daily po PROBIOTIC PRODUCT 54069068303 No Longer Active Sahara Rodriguez MD PhD Active BACTRIM DS 800-160 MG TABS 1 po BID x 7 days SULFAMETHOXAZOLE-TRIMETHOPRIM 98191974806 No Longer Active Vishal Hui MD Active CHANTIX STARTING MONTH EARNEST 0.5 MG X 11 & 1 MG X 42 TABS 0.5mg daily for 3 days , then 0.5mg BID for 4 days, then 1mg BID VARENICLINE TARTRATE 71501406303 No Longer Active TAMARA Gray Active VERAPAMIL HCL CR 120 MG TAB CR 1 po bid VERAPAMIL HCL 03708184160 No Longer Active Vishal Hui MD Active METOPROLOL SUCCINATE 50 MG TB24 1 tablet by mouth daily METOPROLOL SUCCINATE 24453311352 No Longer Active Vishal Hui MD Active SAPHRIS 10 MG SUBL 1 tab po bid ASENAPINE MALEATE 19916675826 No Longer Active Vishal Hui MD Active LISINOPRIL 20 MG TABS 1 tab po qd LISINOPRIL 53726914423 No Longer Active Vishal Hui MD Active LATUDA 20 MG TABS Take one by mouth daily LURASIDONE HCL 96857790630 No Longer Active Vishal Hui MD Active TRAZODONE HCL 50 MG TABS 1/2 tab po qd prn for anxiety TRAZODONE HCL 07564956396 No Longer Active Vishal Hui MD Active OMEPRAZOLE 20 MG TBEC 1 po q a.m. 30min prior to first food intake OMEPRAZOLE 81710155718 Active TAMARA Casey Active RANITIDINE HCL 150 MG CAPS 1 twice a day RANITIDINE HCL 35820629892 Active Lynda Xiao LPN Active LINZESS 290 MCG CAPS Take one by mouth daily LINACLOTIDE 14070918702 No Longer Active Vishal Hui MD Active SAPHRIS 5 MG SUBL 1 tab po qd ASENAPINE MALEATE 86276633755 No Longer Active Vishal Hui MD Active ZALEPLON 10 MG CAPS 1 cap po every other night ZALEPLON 27535818114 No Longer Active Vishal Hui MD Active LYRICA 50 MG CAPS 1 tab po TID PREGABALIN 24798042685 No Longer Active Vishal uHi MD Active LORATADINE 10 MG TABS 1 tab po qd LORATADINE 54235486930 No Longer Active Vishal Hui MD Active VERAPAMIL HCL ER 180 MG CR-TABS 1 tab po bid VERAPAMIL HCL 80760475270 No Longer Active Vishal Hui MD Active MIRALAX POWD 1 capfull once daily POLYETHYLENE GLYCOL 3350 43576206047 No Longer Active Vishal Hui MD Active PREDNISONE 20 MG TABS 1 tab po qd PREDNISONE 39184952461 No Longer Active Renzo Thornton DO Active LEVOFLOXACIN 500 MG TABS 1 tab po qd LEVOFLOXACIN 52277870268 No Longer Active Renzo Thornton DO Active BUSPIRONE HCL 15 MG TABS 1 tab po TID BUSPIRONE HCL 00407442455 No Longer Active Renzo Thornton DO Active BENZTROPINE MESYLATE 1 MG TABS 1 tab po qd BENZTROPINE MESYLATE 31977788061 No Longer Active Renzo Thornton DO Active ATENOLOL 25 MG TABS 1 tab po qd ATENOLOL 31182431533 No Longer Active Renzo Thornton DO Active ESCITALOPRAM OXALATE 20 MG TABS 1 tab po qd ESCITALOPRAM OXALATE 88268801314 No Longer Active Renzo Thornton DO Active ADVAIR DISKUS 250-50 MCG/DOSE AEPB 1 puff BID FLUTICASONE-SALMETEROL 55119515046 No Longer Active Renzo Thornton DO Active PREDNISONE 20 MG TAB 2 tabs daily for 3 days, 1 tab daily for 3 days, 1/2 tab daily for 2 days PREDNISONE 67793451828 No Longer Active Vishal Hui MD Active CEFDINIR 300 MG CAPS by mouth twice a day CEFDINIR 62396548565 No Longer Active Vishal Hui MD Active LANSOPRAZOLE 30 MG CPDR 1 cap po qd LANSOPRAZOLE 94350918395 No Longer Active Vishal Hui MD Active BACLOFEN 20 MG TABS 1 tab po tid BACLOFEN 30826074787 No Longer Active Vishal Hui MD Active ADVAIR DISKUS 250-50 MCG/DOSE AEPB 1 puff BID ADVAIR DISKUS 250-50 MCG/DOSE AEPB FLUTICASONE-SALMETEROL Inactive ESCITALOPRAM OXALATE 20 MG TABS 1 tab po qd ESCITALOPRAM OXALATE 20 MG TABS 159201 ESCITALOPRAM OXALATE Inactive ATENOLOL 25 MG TABS 1 tab po qd ATENOLOL 25 MG TABS 855832 ATENOLOL Inactive BENZTROPINE MESYLATE 1 MG TABS 1 tab po qd BENZTROPINE MESYLATE 1 MG TABS 928629 BENZTROPINE MESYLATE Inactive BUSPIRONE HCL 15 MG TABS 1 tab po TID BUSPIRONE HCL 15 MG TABS 628581 BUSPIRONE HCL Inactive LEVOFLOXACIN 500 MG TABS 1 tab po qd LEVOFLOXACIN 500 MG TABS 466021 LEVOFLOXACIN Inactive PREDNISONE 20 MG TABS 1 tab po qd PREDNISONE 20 MG TABS 368462 PREDNISONE Inactive MIRALAX POWD 1 capfull once daily MIRALAX POWD 520192 POLYETHYLENE GLYCOL 3350 Inactive VERAPAMIL HCL ER 180 MG CR-TABS 1 tab po bid VERAPAMIL HCL ER 180 MG CR-TABS VERAPAMIL HCL Inactive LORATADINE 10 MG TABS 1 tab po qd LORATADINE 10 MG TABS 007962 LORATADINE Inactive LYRICA 50 MG CAPS 1 tab po TID LYRICA 50 MG CAPS PREGABALIN Inactive ZALEPLON 10 MG CAPS 1 cap po every other night ZALEPLON 10 MG CAPS 434835 ZALEPLON Inactive SAPHRIS 5 MG SUBL 1 tab po qd SAPHRIS 5 MG SUBL ASENAPINE MALEATE Inactive TRAZODONE HCL 50 MG TABS 1/2 tab po qd prn for anxiety TRAZODONE HCL 50 MG TABS 800954 TRAZODONE HCL Inactive LATUDA 20 MG TABS Take one by mouth daily LATUDA 20 MG TABS LURASIDONE HCL Inactive LISINOPRIL 20 MG TABS 1 tab po qd LISINOPRIL 20 MG TABS 076811 LISINOPRIL Inactive SAPHRIS 10 MG SUBL 1 [...] twice daily BACTRIM DS 800-160 MG TAB 436953 TRIMETHOPRIM-SULFAMETHOXAZOLE Inactive MULTIVITAMINS CAPS Take one by mouth daily MULTIVITAMINS CAPS MULTIPLE VITAMIN Inactive MELATONIN 3 MG CAPS 2 po q hs MELATONIN 3 MG CAPS 206949 MELATONIN Inactive KEFLEX 500 MG ORAL CAPS 1 cap QID by mouth KEFLEX 500 MG ORAL CAPS 727944 CEPHALEXIN Inactive CLINDAMYCIN HCL 150 MG CAPS 1 four times a day CLINDAMYCIN HCL 150 MG CAPS 544599 CLINDAMYCIN HCL Inactive DIFLUCAN 150 MG TAB 1 tablet by mouth daily DIFLUCAN 150 MG TAB 791421 FLUCONAZOLE Inactive PROZAC 20 MG CAP Take one by mouth daily PROZAC 20 MG CAP 690844 FLUOXETINE HCL Inactive IBUPROFEN 600 MG TAB 1 po TID PRN IBUPROFEN 600 MG TAB 157855 IBUPROFEN Inactive VYVANSE 40 MG CAPS 1 daily, VYVANSE 40 MG CAPS LISDEXAMFETAMINE DIMESYLATE Inactive TRAZODONE HCL 100 MG TAB take 1 at bedtime TRAZODONE HCL 100 MG TAB 452671 TRAZODONE HCL Inactive AMITRIPTYLINE HCL 100 MG TAB one at hs AMITRIPTYLINE HCL 100 MG TAB 128764 AMITRIPTYLINE HCL Inactive AMLODIPINE BESYLATE 5 MG TABS 1 tablet by mouth daily AMLODIPINE BESYLATE 5 MG TABS 143063 AMLODIPINE BESYLATE Inactive LATUDA 80 MG TABS Take one by mouth daily LATUDA 80 MG TABS LURASIDONE HCL Inactive SAPHRIS 5 MG SUBL 1 po bid SAPHRIS 5 MG SUBL ASENAPINE MALEATE Inactive PREDNISONE 20 MG TAB 2 tabs daily for 4 days, 1 tab daily for 4 days, 1/2 tab daily for 4 days PREDNISONE 20 MG TAB 506945 PREDNISONE Inactive AMBIEN 5 MG ORAL TABS 1 tab at bedtime AMBIEN 5 MG ORAL TABS 508799 ZOLPIDEM TARTRATE Inactive PROZAC 20 MG ORAL CAPS 1 tab daily PROZAC 20 MG ORAL CAPS 596313 FLUOXETINE HCL Inactive ABILIFY 15 MG ORAL TABS 1 tab daily ABILIFY 15 MG ORAL TABS 192062 ARIPIPRAZOLE Inactive METOPROLOL TARTRATE 50 MG TAB 1 po bid METOPROLOL TARTRATE 50 MG TAB 881923 METOPROLOL TARTRATE Inactive TRAMADOL HCL 50 MG TABS 1-2 po TID PRN Pain TRAMADOL HCL 50 MG TABS 879090 TRAMADOL HCL Inactive PIROXICAM 20 MG CAPS 1 cap po qd PRN Pain PIROXICAM 20 MG CAPS 309117 PIROXICAM Inactive MINIPRESS 2 MG CAPS 4 cap po at night MINIPRESS 2 MG CAPS 950756 PRAZOSIN HCL Inactive MIRALAX PACK 1 po qd PRN Constipation MIRALAX PACK 021855 POLYETHYLENE GLYCOL 3350 Inactive METOPROLOL TARTRATE 25 MG ORAL TABS 1/2 tablet twice daily for heart rate and blood pressure METOPROLOL TARTRATE 25 MG ORAL TABS 801814 METOPROLOL TARTRATE Inactive VALIUM 5 MG TAB Take 1-2 tablets daily VALIUM 5 MG TAB 750609 DIAZEPAM Inactive FLAGYL 500 MG TAB 1 tablet by mouth bid FLAGYL 500 MG TAB 308797 METRONIDAZOLE Inactive DICLOFENAC POTASSIUM TABS Take 1 tablet twice a day (pt. is not sure of the dose.) DICLOFENAC POTASSIUM TABS DICLOFENAC POTASSIUM TABS Inactive ZITHROMAX Z-EARNEST 250 MG TABS 2 today and then 1 daily for 4 days ZITHROMAX Z-AERNEST 250 MG TABS 5855384 AZITHROMYCIN Inactive PREDNISONE 20 MG TABS 2 daily for 5 days then 1 daily for 5 days PREDNISONE 20 MG TABS 530858 PREDNISONE Inactive PROAIR HFA 108 (90 BASE) MCG/ACT AERS 2 puffs four times a day as needed 2015 PROAIR HFA 108 (90 BASE) MCG/ACT AERS ALBUTEROL SULFATE Inactive HYDROCODONE-ACETAMINOPHEN 5-325 MG TABS 1 to 2 four times a day as needed for pain use until can be seen by specialist HYDROCODONE- ACETAMINOPHEN 5-325 MG TABS 356411 HYDROCODONE-ACETAMINOPHEN Inactive TESSALON PERLES 100 MG CAP 1 to 2 tablets by mouth 3 times daily as needed for cough TESSALON PERLES 100 MG CAP 882258 BENZONATATE Inactive CHANTIX STARTING MONTH EARNEST 0.5 [...] Pain 2015 DICLOFENAC SODIUM 50 MG TBEC 004169 DICLOFENAC SODIUM Inactive TOPAMAX 50 MG ORAL TABS 1 tab twice daily TOPAMAX 50 MG ORAL TABS 643250 TOPIRAMATE Inactive VIIBRYD 10 MG ORAL TABS Take 1 tablet once a day VIIBRYD 10 MG ORAL TABS VILAZODONE HCL Inactive LEVOFLOXACIN 500 MG ORAL TABS po daily LEVOFLOXACIN 500 MG ORAL TABS 893695 LEVOFLOXACIN Inactive METHYLPREDNISOLONE 4 MG ORAL TABS po daily METHYLPREDNISOLONE 4 MG ORAL TABS 071336 METHYLPREDNISOLONE Inactive OXYCODONE HCL ER 10 MG ORAL T12A 1/2 tab by mouth every 4 hours prn OXYCODONE HCL ER 10 MG ORAL T12A OXYCODONE HCL Inactive FLAGYL 500 MG TAB 1 tablet by mouth bid FLAGYL 500 MG TAB 586301 METRONIDAZOLE Inactive MONISTAT 7 COMBO PACK WOODROW 100 & 2 MG-% (9GM) VAG KIT 1 applicatorful per vagina q pm x 7 MONISTAT 7 COMBO PACK WOODROW 100 & 2 MG-% (9GM) VAG KIT MICONAZOLE NITRATE Inactive BACTRIM DS 800-160 MG TABS 1 twice a day BACTRIM DS 800-160 MG TABS 189187 SULFAMETHOXAZOLE-TRIMETHOPRIM Inactive TRAMADOL HCL 50 MG TABS 1/2-1 tab TID PRN TRAMADOL HCL 50 MG TABS 024840 TRAMADOL HCL Inactive ABILIFY MAINTENA 400 MG IM SUSR 400mg injection every 26 days ABILIFY MAINTENA 400 MG IM SUSR ARIPIPRAZOLE Inactive KLONOPIN 1 MG ORAL TABS 1 tab po TID KLONOPIN 1 MG ORAL TABS 007406 CLONAZEPAM Inactive ADVAIR DISKUS 250-50 MCG/DOSE INH AEPB 1 puff twice a day for asthma ADVAIR DISKUS 250-50 MCG/DOSE INH AEPB FLUTICASONE- SALMETEROL Inactive BENADRYL 25 MG CAP 4 po at bedtime for insomnia BENADRYL 25 MG CAP DIPHENHYDRAMINE HCL Inactive PREDNISONE 20 MG TABS 2 daily for 5 days then 1 daily for 5 days PREDNISONE 20 MG TABS 682941 PREDNISONE Inactive HYDROCODONE-ACETAMINOPHEN 5-325 MG ORAL TABS 1 tab two times a day HYDROCODONE-ACETAMINOPHEN 5-325 MG ORAL TABS 437841 HYDROCODONE-ACETAMINOPHEN Inactive ZITHROMAX Z-EARNEST 250 MG TABS 2 today and then 1 daily for 4 days ZITHROMAX Z-EARNEST 250 MG TABS 9073290 AZITHROMYCIN Inactive GUAIFENESIN-CODEINE 100-10 MG/5ML SYRP 5ml every 4 to 6 hours as needed for cough GUAIFENESIN-CODEINE 100-10 MG/5ML SYRP 078442 GUAIFENESIN-CODEINE Inactive HALOPERIDOL 10 MG ORAL TABS 1 tab q.d HALOPERIDOL 10 MG ORAL TABS 525506 HALOPERIDOL Inactive ASPIRIN 325 MG ORAL TABS 1 tab q.d ASPIRIN 325 MG ORAL TABS 302175 ASPIRIN Inactive FLUTICASONE PROPIONATE 50 MCG/ACT SUSP 2 sprays each nostril daily before bed. FLUTICASONE PROPIONATE 50 MCG/ACT SUSP 8307625 FLUTICASONE PROPIONATE Inactive ZOFRAN 4 MG TABS 1 po q6hr PRN Nausea ZOFRAN 4 MG TABS 143721 ONDANSETRON HCL Inactive KEFLEX 500 MG CAP 1 po qid KEFLEX 500 MG CAP 578557 CEPHALEXIN Inactive ACETAMINOPHEN-CODEINE 120-12 MG/5ML SOLN 5 ml by mouth every 4-6 hours if needed for cough ACETAMINOPHEN-CODEINE 120-12 MG/5ML SOLN 722658 ACETAMINOPHEN-CODEINE Inactive PREDNISONE 20 MG TAB 1 tablet daily x 4 days PREDNISONE 20 MG TAB 522935 PREDNISONE Inactive TROPICAMIDE 0.5 % OPHTH SOLN 1 drop PRN eye spasms TROPICAMIDE 0.5 % OPHTH SOLN 560601 TROPICAMIDE Inactive LEVAQUIN 500 MG TABS 1 daily for infection LEVAQUIN 500 MG TABS 440321 LEVOFLOXACIN Inactive PREDNISONE 10 MG TABS 2 daily for 5 days then 1 daily for 5 days PREDNISONE 10 MG TABS 638959 PREDNISONE Inactive EQ NICOTINE 21 MG/24HR TRANS [...] twice a day CEFDINIR 300 MG CAPS 756398 CEFDINIR Inactive PREDNISONE 20 MG TAB 2 tabs daily for 3 days, 1 tab daily for 3 days, 1/2 tab daily for 2 days PREDNISONE 20 MG TAB 806360 PREDNISONE Inactive BACTRIM DS 800-160 MG TABS 1 po BID x 7 days BACTRIM DS 800-160 MG TABS 337629 SULFAMETHOXAZOLE-TRIMETHOPRIM Inactive DIFLUCAN 150 MG TABS 1 pill every other day x 2 doses DIFLUCAN 150 MG TABS [id number] FLUCONAZOLE Inactive BACTRIM DS 800-160 MG TABS 1 pill by mouth twice daily BACTRIM DS 800-160 MG TABS [id number] SULFAMETHOXAZOLE-TRIMETHOPRIM Inactive KEFLEX 500 MG CAP 1 po TID x 10 days KEFLEX 500 MG CAP [id number] CEPHALEXIN Inactive Advance Directives Directive Description Start [...] pressure, diastolic - 8462-4 79 mm[Hg] BP mncally blood pressure, systolic - 8480-6 112 mm[Hg] [...] % 11.0-15.0 platelet count 443 THOUSAND/UL 10*3/mm3 232-306 5265/03/01 mean platelet volume 8.2 fL 7.5-12.5 leukocyte [...] % 11.0-15.0 platelet count 349 THOUSAND/UL 10*3/mm3 637-741 1288/04/12 mean platelet volume 8.4 fL 7.5-12.5 Lab [...] 369 10^3/MM^3 10*3/mm3 142-424 Lab Report: Chlamydia/GC APTIMA/[id number] - Lab chlamydia DNA probe NOT DETECTED NOT DETECTED Lab Report: Chlamydia/GC APTIMA/[id number] - Microbiology Neisseria gonorrhoeae DNA probe NOT DETECTED NOT DETECTED Lab Report: Chlamydia/GC APTIMA/[id number], Urinalysis, Complete, with Reflex ... - Lab chlamydia DNA probe NOT DETECTED NOT DETECTED Lab Report: Chlamydia/GC APTIMA/66019, Urinalysis, Complete, with Reflex ... - Microbiology Neisseria gonorrhoeae DNA probe NOT DETECTED NOT DETECTED Lab Report: Chlamydia/GC APTIMA/03818, Urinalysis, Complete, with Reflex ... - Urinalysis microalbumin/total urine volume 2 mg/L Units converted. See lab report for original value. microalbumin/creatinine ratio, urine 9 MCG/MG CREAT mg/L <30 Lab Report: Comp. Metabolic Panel - Chemistry sodium, serum 140 mmol/L 217-235 4643/08/08 carbon dioxide, venous blood 33.7 mmol/L 21.0-32.0 [...] Negative Encounters Code Encounter Date Provider Facility CPT-05811 Level 4 Est. Patient 10:49:34 CDT Suzan Boo [facility] CPT-76705 Level 3 Est. Patient 10:00:25 CDT Suzan Boo [facility]-49615 Level 3 Est. Patient 10:29:30 CDT Suzan Boo [facility] CPT-16605 Level 3 Est. Patient 11:04:38 CDT Renzo Thornton [facility]-73509 Level 3 Est. Patient 11:15:58 MATCHER Renzo Thornton [facility]-55609 Level 3 Est. Patient 15:28:23 MATCHER Suzan Boo [facility] CPT-04268 Level 4 Est. Patient 10:20:54 MATCHER Suzan Boo [facility] CPT-49281 Level 3 Est. Patient 11:47:37 MATCHER Ahmet Carbajal MD [facility] CPT-78795 Level 3 Est. Patient 10:40:11 MATCHER Ahmet Carbajal MD [facility] CPT-67389 Level 3 Est. Patient 15:07:06 MATCHER Neeraj Collins MD [facility] CPT-44109 Level 4 Est. Patient 14:45:00 MATCHER Ahmet Carbajal MD [facility] CPT-79127 Level 3 Est. Patient 13:59:59 CDT Luigi Martínez [facility]-41705 Level 3 Est. Patient 18:18:53 CDT Neeraj Collins MD [facility] CPT-63462 Level 3 Est. Patient 15:50:44 CDT Vishal Hui MD [facility] CPT-85289 Level 3 Est. Patient 11:36:17 CDT Ahmet Carbajal MD [facility] CPT-03635 Level 3 Est. Patient 13:29:16 CDT Vishal Hui MD [facility] CPT-65597 Level 3 Est. Patient 14:27:52 CDT Neeraj Collins MD [facility] CPT-52377 Level 3 Est. Patient 08:56:03 CDT Luigi Martínez [facility] CPT-31935 Level 4 Est. Patient 12:11:48 CDT Fabiola Johnson [facility] CPT-30043 Level 3 New Patient 16:53:37 CDT Albert Caldera MD [facility] CPT-63347 Level 3 Est. Patient 11:25:49 CDT Renzo Thornton DO [facility] CPT-18664 Level 3 Est. Patient 15:22:01 CDT Ahmet Carbjaal MD [facility] CPT-09017 Level 4 Est. Patient 09:00:51 MATCHER Vishal Hui MD [facility] CPT-81844 Level 3 Est. Patient 11:37:33 MATCHER Vishal Hui MD [facility] CPT-60377 Level 3 Est. Patient 08:41:09 MATCHER Vishal Hui MD [facility] CPT-79267 Level 4 Est. Patient 10:19:35 MATCHER Vishal Hui MD [facility] CPT-09342 Level 3 Est. Patient 13:35:45 CDT Vishal Hui MD [facility] CPT-01455 Level 4 Est. Patient 10:08:37 CDT Vishal Hui MD [facility] CPT-28210 Level 3 Est. Patient 11:22:10 CDT Vishal Hui MD [facility] CPT-05641 Level 3 Est. Patient 11:03:32 CDT Sahara Rodriguez MD [facility] CPT-74163 Level 3 Est. Patient 09:41:35 CDT Vishal Hui MD [facility]-41432 Level 3 Est. Patient 12:00:41 CDT Neeraj Collins MD [facility]-53382 Level 3 Est. Patient 09:16:24 CDT Vishal Hui MD [facility] CPT-19812 Level 4 Est. Patient 13:59:09 CDT Neeraj Collins MD [facility]-72209 Level 3 Est. Patient 15:19:43 CDT Renzo Thornton DO [facility]-29462 Level 3 Est. Patient 18:10:26 CDT Sahara Rodriguez MD [facility]-41417 Level 3 Est. Patient 14:49:50 CDT Vishal Hui MD [facility] CPT-25560 Level 4 Est. Patient 18:41:46 CDT Neeraj Collins MD [facility]-47726 Level 4 Est. Patient 09:18:38 MATCHER Vishal Hui MD [facility] CPT-35275 Level 3 Est. Patient 14:43:55 MATCHER Vishal Hui MD [facility]-52793 Level 3 Est. Patient 15:26:33 MATCHER Sahara Rodriguez MD PhD [facility] CPT-34122 Level 3 Est. Patient 10:32:14 MATCHER Vishal Hui MD [facility]-88428 Level 3 Est. Patient 15:12:52 MATCHER Vishal Hui MD [facility] CPT-15243 Level 4 Est. Patient 09:19:27 CDT Vishal Hui MD [facility]-92254 Level 3 Est. Patient 15:53:00 CDT Renzo Thornton [facility] CPT-85045 Level 3 Est. Patient 15:50:30 CDT Renzo Thornton [facility] CPT-15310 Level 3 Est. Patient 16:55:24 CDT Vishal Hui MD [facility] Procedures Code Procedure Name Date Entry Date Standard Description CPT-11824 Venipuncture Draw Fee 08:41:12 CDT CPT-51223 Abd compl w upright - XRAY USE ONLY 10:27:59 CDT 06/28 CPT-87588 Smoking Cessation counseling 11:15:58 MATCHER CPT-G0439 [facility] Annual Wellness Exam 09:30:58 MATCHER CPT-87899 TSH - LAB USE ONLY 08:50:26 MATCHER CPT-37093 CBC - LAB USE ONLY 08:50:26 MATCHER CPT-58726 Venipuncture Draw Fee 08:50:26 MATCHER CPT-77411 Abx/Therapy Injection 17:34:30 MATCHER CPT-97565 Nexplanon Removal with Reinsertion 14:09:32 CDT CPT-J7307 Nexplanon (Implant) 14:09:32 CDT CPT-OV Office Visit 14:09:32 CDT CPT-19967 UA w micro - LAB USE ONLY 16:21:13 CDT CPT-22521 [place] - LAB USE ONLY 16:21:13 CDT CPT-96503 First Vx - Ix admin for Medicare patients 14:37:47 CDT CPT-29045 Fluzone Preservative Free Intramuscular Suspension 14:37 :47 CDT CPT-11471 Abx/Therapy Injection 13:54:22 CDT CPT-70972 Abx/Therapy Injection 08:47:09 CDT CPT-00817 Abx/Therapy Injection 13:29:56 CDT CPT-37819 Abx/Therapy Injection 08:36:16 CDT CPT-60328 [place] - LAB USE ONLY 17:44:58 CDT CPT-20288 UA w micro - LAB USE ONLY 17:44:58 CDT CPT-81970 CMP - LAB USE ONLY 17:44:58 CDT CPT-66662 Venipuncture Draw Fee 17:44:58 CDT CPT-69450 Cervical Min 4V - XRAY USE ONLY 09:01:40 CDT CPT-45120 Chest 2V Frontal and Lat - XRAY USE ONLY 11:06:31 CDT CPT-27346 EKG Trac and Interp - XRAY USE ONLY 11:31:43 CDT 08/26 CPT-J3420 Vitamin B12 1000mcg (Cyanocobalamin) 08:10:26 MATCHER 04/12 CPT-99365 Abx/Therapy Injection 08:10:26 MATCHER CPT-G0438 Initial Annual Wellness Exam 19:01:01 MATCHER CPT-J3420 Vitamin B12 1000mcg (Cyanocobalamin) 16:57:46 CDT 08/14 CPT-87805 Recombivax HB Injection Suspension 5 MCG/0.5ML 08:37:50 MATCHER CPT-87878 Immunization Single Admin 08:37:50 MATCHER CPT-J3420 Vitamin B12 1000mcg (Cyanocobalamin) 08:32:16 MATCHER 03/11 CPT-60564 Abx/Therapy Injection 08:32:16 MATCHER CPT-12982 Chest 2V Frontal and Lat 11:46:38 MATCHER CPT-53354 Venipuncture Draw Fee 09:12:45 MATCHER CPT-J3420 Vitamin B12 1000mcg (Cyanocobalamin) 08:50:15 MATCHER 02/08 CPT-23724 Abx/Therapy Injection 08:50:15 MATCHER CPT-Cryo Cryotherapy 10:19:35 MATCHER CPT-000 Give Appropriate Flu Vaccine 09:22:16 CDT CPT-J3420 Vitamin B12 1000mcg (Cyanocobalamin) 19:08:57 CDT 01/11 CPT-62019 Abx/Therapy Injection 19:08:57 CDT CPT-J3420 Vitamin B12 1000mcg (Cyanocobalamin) 08:19:08 CDT 12/11 CPT-84925 Abx/Therapy Injection 08:19:08 CDT CPT-J3420 Vitamin B12 1000mcg (Cyanocobalamin) 14:48:00 CDT 11/09 CPT-07527 Abx/Therapy Injection 14:47:59 CDT CPT-J3420 Vitamin B12 1000mcg (Cyanocobalamin) 08:34:04 CDT 10/09 CPT-53524 Abx/Therapy Injection 08:34:04 CDT CPT-J3420 Vitamin B12 1000mcg (Cyanocobalamin) 09:18:52 CDT 09/11 CPT-75886 Abx/Therapy Injection 09:18:52 CDT CPT-J3420 Vitamin B12 1000mcg (Cyanocobalamin) 08:35:44 CDT 09/04 CPT-21930 Abx/Therapy Injection 08:35:44 CDT CPT-09442 Immunization Single Admin 11:07:16 CDT CPT-47273 Hepatitis B adult IM 11:07:16 CDT CPT-J3420 Vitamin B12 1000mcg (Cyanocobalamin) 11:00:49 CDT 08/28 CPT-J1040 Depo Medrol 80 mg (Methyl Prednisolone Acetate) 11:00: 49 CDT CPT-67414 Abx/Therapy Injection 11:00:49 CDT CPT-J1040 Depo Medrol 80 mg (Methyl Prednisolone Acetate) 09:16: 23 CDT CPT-J3420 Vitamin B12 1000mcg (Cyanocobalamin) 08:27:05 CDT 08/20 CPT-48929 Abx/Therapy Injection 08:27:05 CDT CPT-87887 Recombivax HB Injection Suspension 5 MCG/0.5ML 10:00:41 CDT CPT-04086 Administration single or combination vaccine inc oral 10 :00:41 CDT CPT-41208 Sono transvag pelvis non OB uterus ovaries cervix 16:36: 57 CDT CPT-51592 LS spine comp w obliq 09:50:55 MATCHER CPT-12765 Abd compl w upright 09:50:55 MATCHER CPT-J1100 Decadron 4mg (Dexamethasone) 15:51:24 MATCHER CPT-J1030 Depo Medrol 40 mg (Methyl Prednisolone Acetate) 15:51: 24 MATCHER CPT-65872 Abx/Therapy Injection 15:51:24 MATCHER CPT-J1100 Decadron 4mg (Dexamethasone) 15:26:33 MATCHER CPT-J1030 Depo Medrol 40 mg (Methyl Prednisolone Acetate) 15:26: 33 MATCHER CPT-65527 Sono retroperitoneal complete kidneys and bladder 17:15: 30 CDT CPT-03114 Abd compl w upright 16:09:25 CDT CPT-J1100 Decadron 8mg (Dexamethasone) 17:07:57 CDT CPT-57861 Abx/Therapy Injection 17:07:57 CDT CPT-J1100 Decadron 8mg (Dexamethasone) 16:55:24 CDT CPT-59956 Chest 2V Frontal and Lat 16:32:44 CDT
--- OUTSIDE RECORDS SUMMARY | 2016-11-05 00:09 | XMS REPORT ---
Author Author [facility] Medical Staff Organization [facility] Address [address] [place], [place] [id number] Phone [phone] Summary purpose TRANSITION OF CARE AUTO GENERATION [...] tests and/or laboratory data RESULTS Radiology Results [id number] CT HEAD W/WO CONT PACs Image DATE OF EXAM: Mar 11 2015 [id number] HEAD W/WO CONTRAST : RADIOLOGY REPORT DATE OF SERVICE: 03/11/15 HISTORY: Patient has atypical right side headache x15 days with visual changes and dizziness. CT HEAD WITH AND WITHOUT CONTRAST 0930 HOURS Axial images were obtained from base of skull to vertex. There is no evidence of any intracranial hemorrhage. No mass effect is seen. Ventricular system is normal. There is an area of linear decreased density peripherally in the right frontal area best seen on image #21 through 23, series #2 precontrast images and same images on series 4 postcontrast images. This may represent a somewhat prominent sulcus or residual from old minor insult such as infarct. Otherwise there is a slightly prominent vein seen coursing in the right parietal lobe from medial to superficial best seen on image #17 through 20. This may represent a venous malformation, but most likely is not significant. Otherwise, the density of the brain is normal. Ventricular system, orbits, and bony structures appear unremarkable. 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 Questionable venous malformation in the right parietal lobe. If patient has continued symptoms and MRI study of the brain with and without contrast would be recommended for further evaluation. DO Lizbeth Frederick 03/11/2015 10:39: / 03/11/2015 11:07:58 cc:Tata Martínez APRN This document has been electronically Signed by: On: DATE OF EXAM: Mar 11 2015 [id number] HEAD W/WO CONTRAST : RADIOLOGY REPORT DATE OF SERVICE: 03/11/15 HISTORY: Patient has atypical right side headache x15 days with visual changes and dizziness. CT HEAD WITH AND WITHOUT CONTRAST 0930 HOURS Axial images were obtained from base of skull to vertex. There is no evidence of any intracranial hemorrhage. No mass effect is seen. Ventricular system is normal. There is an area of linear decreased density peripherally in the right frontal area best seen on image #21 through 23, series #2 precontrast images and same images on series 4 postcontrast images. This may represent a somewhat prominent sulcus or residual from old minor insult such as infarct. Otherwise there is a slightly prominent vein seen coursing in the right parietal lobe from medial to superficial best seen on image #17 through 20. This may represent a venous malformation, but most likely is not significant. Otherwise, the density of the brain is normal. Ventricular system, orbits, and bony structures appear unremarkable. 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 Questionable venous malformation in the right parietal lobe. If patient has continued symptoms and MRI study of the brain with and without contrast would be recommended for further evaluation. DO Lizbeth Frederick 03/11/2015 10:39:03/11/2015 11:07:58 cc:Tata Martínez APRN This document has been electronically Signed by: MINO CALL DO On: Mar 11 2015 11:51A Result Amended on 2015-03-11 at 11:51:14. Previous status was MO. History of procedures Procedure Code Code Type Description Date Performed Performing Physician [id number] CPT-4 CT HEAD/BRAIN W/O & W/DYE 03-11-2015 HUGO MARTÍNEZ Q9967 CPT-4 LOCM 300-399MG/ML IODINE,1ML 03-11-2015 HUGO MARTÍNEZ Functional status No functional or cognitive status [...]
--- OUTSIDE RECORDS SUMMARY | 2016-11-05 00:11 | XMS REPORT | Clinical Summary ---
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 Active Juliet Kimbrough [employer]SP[employer]ER [employer]RIER Dependence on other enabling machines and devices Gait unsteady 781.2 Resolved Albert Caldera MD Abnormality of gait Lipoma 214.9 Resolved Albert Caldera MD Lipoma, unspecified site Abdominal pain, RUQ 789.01 Resolved Albert Caldera MD Abdominal pain, right upper quadrant Chest pain, acute 786.50 Resolved Albert Cladera MD Unspecified chest pain Localized adiposity 278.1 Active Albert Caldera MD Localized adiposity Shortness of breath 786.05 Active Fabiola Johnson [employer] Shortness of breath Nocturnal hypoxia 799.02 Active Fabiola Johnson [employer]ER [employer]ER Hypoxemia Neck pain 723.1 Active Jioral Martínez [employer]SP[employer]ER [employer]ER Cervicalgia Anxiety Disorder ICD-300.00 Inactive Vishal Hui [...] each nostril daily before bed. FLUTICASONE PROPIONATE 29847608224 Active Fabiola Johnson APRN Active VERAPAMIL HCL ER 120 MG ORAL CR-TABS 1 tab po daily for blood pressure 09/27 VERAPAMIL HCL 04489363402 Active Fabiola Johnson APRN Active ADZENYS XR-ODT 6.3 MG ORAL TBED 1 tab po daily for ADHD AMPHETAMINE 75154815088 Active Fabiola Johnson APRN Active BENADRYL 25 MG CAP 4 po at bedtime for insomnia DIPHENHYDRAMINE HCL 20519264416 Active Fabiola Johnson APRN Active KLONOPIN 1 MG ORAL TABS 1 tab po TID CLONAZEPAM 75119719182 Active Fabiola Johnson APRN Active VALIUM 5 MG TAB Take 1-2 tablets daily DIAZEPAM 96725395318 No Longer Active Fabiola Johnson APRN Active METOPROLOL TARTRATE 25 MG ORAL TABS 1/2 tablet twice daily for heart rate and blood pressure METOPROLOL TARTRATE 79968707717 No Longer Active Fabiola Johnson APRN Active MIRALAX ORAL POWD 17GMS DAILY IN WATER POLYETHYLENE GLYCOL 3350 39338773976 Active Vishal Hui MD Active VIIBRYD 10 MG ORAL TABS Take 1 tablet once a day VILAZODONE HCL 19027812406 Active Ahmet Carbajal MD Active DICLOFENAC POTASSIUM TABS Take 1 tablet twice a day (pt. is not sure of the dose.) DICLOFENAC POTASSIUM TABS 66663190223 Active Ahmet Carbajal MD Active MIRALAX PACK 1 po qd PRN Constipation POLYETHYLENE GLYCOL 3350 43406447516 No Longer Active Ahmet Carbajal MD Active MINIPRESS 2 MG CAPS 4 cap po at night PRAZOSIN HCL 26731119910 No Longer Active Ahmet Carbajal MD Active PIROXICAM 20 MG CAPS 1 cap po qd PRN Pain PIROXICAM 43968039097 No Longer Active Ahmet Carbajal MD Active TRAMADOL HCL 50 MG TABS 1-2 po TID PRN Pain TRAMADOL HCL 45542693553 No Longer Active Ahmet Carbajal MD Active METOPROLOL TARTRATE 50 MG TAB 1 po bid METOPROLOL TARTRATE 53853765648 No Longer Active Ahmet Carbajal MD Active ABILIFY 15 MG ORAL TABS 1 tab daily ARIPIPRAZOLE 89618511146 No Longer Active Ahmet Carbajal MD Active PROZAC 20 MG ORAL CAPS 1 tab daily FLUOXETINE HCL 98357766299 No Longer Active Ahmet Carbajal MD Active AMBIEN 5 MG ORAL TABS 1 tab at bedtime ZOLPIDEM TARTRATE 73807795187 No Longer Active Ahmet Carbajal MD Active PREDNISONE 20 MG TAB 2 tabs daily for 4 days, 1 tab daily for 4 days, 1/2 tab daily for 4 days PREDNISONE 80764663481 No Longer Active Ahmet Carbajal MD Active KEFLEX 500 MG CAP 1 po TID x 10 days CEPHALEXIN 38708856646 No Longer Active Vishal Hui MD Active ABILIFY MAINTENA 400 MG IM SUSR Injection once per month ARIPIPRAZOLE 17077328747 Active Juliet Kimbrough APRN Active IMITREX 50 MG ORAL TABS 1/2 tab every 6 hours prn SUMATRIPTAN SUCCINATE 25458849618 Active Jillina Mauricio NORIEGA Active TOPAMAX 50 MG ORAL TABS 1 tab twice daily TOPIRAMATE 49597226895 Active Vishal Hui MD Active SAPHRIS 5 MG SUBL 1 po bid ASENAPINE MALEATE 69291217830 No Longer Active Luigi Martínez APRN Active LATUDA 80 MG TABS Take one by mouth daily LURASIDONE HCL 67932876999 No Longer Active Luigi Martínez APRN Active AMLODIPINE BESYLATE 5 MG TABS 1 tablet by mouth daily AMLODIPINE BESYLATE 71908727113 No Longer Active Luigi Martínez APRN Active AMITRIPTYLINE HCL 100 MG TAB one at hs AMITRIPTYLINE HCL 62704613576 No Longer Active Vishal Hui MD Active TRAZODONE HCL 100 MG TAB take 1 at bedtime TRAZODONE HCL 08703389846 No Longer Active Vishal Hui MD Active VYVANSE 40 MG CAPS 1 daily, LISDEXAMFETAMINE DIMESYLATE 41295536531 No Longer Active Vishal Hui MD Active IBUPROFEN 600 MG TAB 1 po TID PRN IBUPROFEN 30220270871 No Longer Active Vishal Hui MD Active PROZAC 20 MG CAP Take one by mouth daily FLUOXETINE HCL 33930651642 No Longer Active Vishal Hui MD Active ZOFRAN 4 MG TABS 1 po q6hr PRN Nausea ONDANSETRON HCL Active Vishal Hui MD Active BACTRIM DS 800-160 MG TABS 1 pill by mouth twice daily SULFAMETHOXAZOLE-TRIMETHOPRIM 40988352165 No Longer Active Sahara Rodriguez MD PhD Active DIFLUCAN 150 MG TAB 1 tablet by mouth daily FLUCONAZOLE 45385069658 No Longer Active Vishal Hui MD Active TIZANIDINE HCL 4 MG TABS 1 po q6hr PRN Muscle Spasm/Back Pain TIZANIDINE HCL 37026810519 Active Vishal Hui MD Active CLINDAMYCIN HCL 150 MG CAPS 1 four times a day CLINDAMYCIN HCL 26440522432 No Longer Active Neeraj Collins MD Active KEFLEX 500 MG ORAL CAPS 1 cap QID by mouth CEPHALEXIN 61143125871 No Longer Active Neeraj Collins MD Active DIFLUCAN 150 MG TABS 1 pill every other day x 2 doses FLUCONAZOLE 30529720894 No Longer Active Sahara Rodriguez MD PhD Active MELATONIN 3 MG CAPS 2 po q hs MELATONIN 66075529568 No Longer Active Sahara Rodriguez MD PhD Active MULTIVITAMINS CAPS Take one by mouth daily MULTIPLE VITAMIN 78707462618 No Longer Active Sahara Rodriguez MD PhD Active BACTRIM DS 800-160 MG TAB 1 tab by mouth twice daily TRIMETHOPRIM-SULFAMETHOXAZOLE 92569140909 No Longer Active Sahara Rodriguez MD PhD Active [facility] PROBIOTIC ORAL CHEW 2 daily po PROBIOTIC PRODUCT 12107379917 No Longer Active Sahara Rodriguez MD PhD Active BACTRIM DS 800-160 MG TABS 1 po BID x 7 days SULFAMETHOXAZOLE-TRIMETHOPRIM 25099487377 No Longer Active Vishal Hui MD Active CHANTIX STARTING MONTH EARNEST 0.5 MG X 11 & 1 MG X 42 TABS 0.5mg daily for 3 days , then 0.5mg BID for 4 days, then 1mg BID VARENICLINE TARTRATE 16934829935 No Longer Active TAMARA Gray Active VERAPAMIL HCL CR 120 MG TAB CR 1 po bid VERAPAMIL HCL 55630282306 No Longer Active Vishal Hui MD Active METOPROLOL SUCCINATE 50 MG TB24 1 tablet by mouth daily METOPROLOL SUCCINATE 06244838512 No Longer Active Vishal Hui MD Active SAPHRIS 10 MG SUBL 1 tab po bid ASENAPINE MALEATE 75941637013 No Longer Active Vishal Hui MD Active LISINOPRIL 20 MG TABS 1 tab po qd LISINOPRIL 99339824210 No Longer Active Vishal Hui MD Active LATUDA 20 MG TABS Take one by mouth daily LURASIDONE HCL 71301633602 No Longer Active Vishal Hui MD Active TRAZODONE HCL 50 MG TABS 1/2 tab po qd prn for anxiety TRAZODONE HCL 08552583517 No Longer Active Vishal Hui MD Active OMEPRAZOLE 20 MG TBEC 1 po q a.m. 30min prior to first food intake OMEPRAZOLE 55129045862 Active Vishal Hui MD Active RANITIDINE HCL 150 MG CAPS 1 twice a day RANITIDINE HCL 48853493851 Active Luigi Swensonlebron NORIEGA Active LINZESS 290 MCG CAPS Take one by mouth daily LINACLOTIDE 88293626612 No Longer Active Vishal Hui MD Active SAPHRIS 5 MG SUBL 1 tab po qd ASENAPINE MALEATE 06085572678 No Longer Active Vishal Hui MD Active ZALEPLON 10 MG CAPS 1 cap po every other night ZALEPLON 68894936193 No Longer Active Vishal Hui MD Active LYRICA 50 MG CAPS 1 tab po TID PREGABALIN 31660920024 No Longer Active Vishal Hui MD Active LORATADINE 10 MG TABS 1 tab po qd LORATADINE 67114315497 No Longer Active Vishal Hui MD Active VERAPAMIL HCL ER 180 MG CR-TABS 1 tab po bid VERAPAMIL HCL 14311084457 No Longer Active Vishal Hui MD Active MIRALAX POWD 1 capfull once daily POLYETHYLENE GLYCOL 3350 30180717559 No Longer Active Vishal Hui MD Active PREDNISONE 20 MG TABS 1 tab po qd PREDNISONE 85968391118 No Longer Active Renzo Thornton DO Active LEVOFLOXACIN 500 MG TABS 1 tab po qd LEVOFLOXACIN 63236542562 No Longer Active Renzo Thornton DO Active BUSPIRONE HCL 15 MG TABS 1 tab po TID BUSPIRONE HCL 81967257153 No Longer Active Renzo Thornton DO Active BENZTROPINE MESYLATE 1 MG TABS 1 tab po qd BENZTROPINE MESYLATE 33641657365 No Longer Active Renzo Thornton DO Active ATENOLOL 25 MG TABS 1 tab po qd ATENOLOL 26625103337 No Longer Active Renzo Thornton DO Active ESCITALOPRAM OXALATE 20 MG TABS 1 tab po qd ESCITALOPRAM OXALATE 89290176532 No Longer Active Renzo Thornton DO Active ADVAIR DISKUS 250-50 MCG/DOSE AEPB 1 puff BID FLUTICASONE-SALMETEROL 99384923145 No Longer Active Renzo Thornton DO Active PREDNISONE 20 MG TAB 2 tabs daily for 3 days, 1 tab daily for 3 days, 1/2 tab daily for 2 days PREDNISONE 89597107985 No Longer Active Vishal Hui MD Active CEFDINIR 300 MG CAPS by mouth twice a day CEFDINIR 27730023315 No Longer Active Vishal Hui MD Active LANSOPRAZOLE 30 MG CPDR 1 cap po qd LANSOPRAZOLE 62319500934 No Longer Active Vishal Hui MD Active BACLOFEN 20 MG TABS 1 tab po tid BACLOFEN 94143689395 No Longer Active Vishal Hui MD Active ADVAIR DISKUS 250-50 MCG/DOSE AEPB 1 puff BID ADVAIR DISKUS 250-50 MCG/DOSE AEPB FLUTICASONE-SALMETEROL Inactive ESCITALOPRAM OXALATE 20 MG TABS 1 tab po qd ESCITALOPRAM OXALATE 20 MG TABS 080352 ESCITALOPRAM OXALATE Inactive ATENOLOL 25 MG TABS 1 tab po qd ATENOLOL 25 MG TABS 068494 ATENOLOL Inactive BENZTROPINE MESYLATE 1 MG TABS 1 tab po qd BENZTROPINE MESYLATE 1 MG TABS 783081 BENZTROPINE MESYLATE Inactive BUSPIRONE HCL 15 MG TABS 1 tab po TID BUSPIRONE HCL 15 MG TABS 114342 BUSPIRONE HCL Inactive LEVOFLOXACIN 500 MG TABS 1 tab po qd LEVOFLOXACIN 500 MG TABS 573505 LEVOFLOXACIN Inactive PREDNISONE 20 MG TABS 1 tab po qd PREDNISONE 20 MG TABS 122612 PREDNISONE Inactive MIRALAX POWD 1 capfull once daily MIRALAX POWD 310360 POLYETHYLENE GLYCOL 3350 Inactive VERAPAMIL HCL ER 180 MG CR-TABS 1 tab po bid VERAPAMIL HCL ER 180 MG CR-TABS VERAPAMIL HCL Inactive LORATADINE 10 MG TABS 1 tab po qd LORATADINE 10 MG TABS 477076 LORATADINE Inactive LYRICA 50 MG CAPS 1 tab po TID LYRICA 50 MG CAPS PREGABALIN Inactive ZALEPLON 10 MG CAPS 1 cap po every other night ZALEPLON 10 MG CAPS 986932 ZALEPLON Inactive SAPHRIS 5 MG SUBL 1 tab po qd SAPHRIS 5 MG SUBL ASENAPINE MALEATE Inactive TRAZODONE HCL 50 MG TABS 1/2 tab po qd prn for anxiety TRAZODONE HCL 50 MG TABS 414209 TRAZODONE HCL Inactive LATUDA 20 MG TABS Take one by mouth daily LATUDA 20 MG TABS LURASIDONE HCL Inactive LISINOPRIL 20 MG TABS 1 tab po qd LISINOPRIL 20 MG TABS 639932 LISINOPRIL Inactive SAPHRIS 10 MG SUBL 1 [...] twice daily BACTRIM DS 800-160 MG TAB 862173 TRIMETHOPRIM-SULFAMETHOXAZOLE Inactive MULTIVITAMINS CAPS Take one by mouth daily MULTIVITAMINS CAPS MULTIPLE VITAMIN Inactive MELATONIN 3 MG CAPS 2 po q hs MELATONIN 3 MG CAPS 682552 MELATONIN Inactive KEFLEX 500 MG ORAL CAPS 1 cap QID by mouth KEFLEX 500 MG ORAL CAPS 632567 CEPHALEXIN Inactive CLINDAMYCIN HCL 150 MG CAPS 1 four times a day CLINDAMYCIN HCL 150 MG CAPS 959906 CLINDAMYCIN HCL Inactive DIFLUCAN 150 MG TAB 1 tablet by mouth daily DIFLUCAN 150 MG TAB 330661 FLUCONAZOLE Inactive PROZAC 20 MG CAP Take one by mouth daily PROZAC 20 MG CAP 025668 FLUOXETINE HCL Inactive IBUPROFEN 600 MG TAB 1 po TID PRN IBUPROFEN 600 MG TAB 289940 IBUPROFEN Inactive VYVANSE 40 MG CAPS 1 daily, VYVANSE 40 MG CAPS LISDEXAMFETAMINE DIMESYLATE Inactive TRAZODONE HCL 100 MG TAB take 1 at bedtime TRAZODONE HCL 100 MG TAB 606811 TRAZODONE HCL Inactive AMITRIPTYLINE HCL 100 MG TAB one at hs AMITRIPTYLINE HCL 100 MG TAB 095402 AMITRIPTYLINE HCL Inactive AMLODIPINE BESYLATE 5 MG TABS 1 tablet by mouth daily AMLODIPINE BESYLATE 5 MG TABS 751272 AMLODIPINE BESYLATE Inactive LATUDA 80 MG TABS Take one by mouth daily LATUDA 80 MG TABS LURASIDONE HCL Inactive SAPHRIS 5 MG SUBL 1 po bid SAPHRIS 5 MG SUBL ASENAPINE MALEATE Inactive PREDNISONE 20 MG TAB 2 tabs daily for 4 days, 1 tab daily for 4 days, 1/2 tab daily for 4 days PREDNISONE 20 MG TAB 211138 PREDNISONE Inactive AMBIEN 5 MG ORAL TABS 1 tab at bedtime AMBIEN 5 MG ORAL TABS 785690 ZOLPIDEM TARTRATE Inactive PROZAC 20 MG ORAL CAPS 1 tab daily PROZAC 20 MG ORAL CAPS 376259 FLUOXETINE HCL Inactive ABILIFY 15 MG ORAL TABS 1 tab daily ABILIFY 15 MG ORAL TABS 556380 ARIPIPRAZOLE Inactive METOPROLOL TARTRATE 50 MG TAB 1 po bid METOPROLOL TARTRATE 50 MG TAB 427651 METOPROLOL TARTRATE Inactive TRAMADOL HCL 50 MG TABS 1-2 po TID PRN Pain TRAMADOL HCL 50 MG TABS 836569 TRAMADOL HCL Inactive PIROXICAM 20 MG CAPS 1 cap po qd PRN Pain PIROXICAM 20 MG CAPS 053653 PIROXICAM Inactive MINIPRESS 2 MG CAPS 4 cap po at night MINIPRESS 2 MG CAPS 348905 PRAZOSIN HCL Inactive MIRALAX PACK 1 po qd PRN Constipation MIRALAX PACK 122811 POLYETHYLENE GLYCOL 3350 Inactive METOPROLOL TARTRATE 25 MG ORAL TABS 1/2 tablet twice daily for heart rate and blood pressure METOPROLOL TARTRATE 25 MG ORAL TABS 869938 METOPROLOL TARTRATE Inactive VALIUM 5 MG TAB Take 1-2 tablets daily VALIUM 5 MG TAB 453832 DIAZEPAM Inactive CEFDINIR 300 MG CAPS by mouth twice a day CEFDINIR 300 MG CAPS 824547 CEFDINIR Inactive PREDNISONE 20 MG TAB 2 tabs daily for 3 days, 1 tab daily for 3 days, 1/2 tab daily for 2 days PREDNISONE 20 MG TAB 162814 PREDNISONE Inactive BACTRIM DS 800-160 MG TABS 1 po BID x 7 days BACTRIM DS 800-160 MG TABS 19820521 SULFAMETHOXAZOLE-TRIMETHOPRIM Inactive DIFLUCAN 150 MG TABS 1 pill every other day x 2 doses DIFLUCAN 150 MG TABS 775210 FLUCONAZOLE Inactive BACTRIM DS 800-160 MG TABS 1 pill by mouth twice daily BACTRIM DS 800-160 MG TABS 19820521 SULFAMETHOXAZOLE-TRIMETHOPRIM Inactive KEFLEX 500 MG CAP 1 po TID x 10 days KEFLEX 500 MG CAP 319771 CEPHALEXIN Inactive Advance Directives Directive Description Start [...] % 11.6-14.8 platelet count 394 10^3/MM^3 10*3/mm3 440-411 5362/01/11 leukocyte count, blood 13.8 10^3/MM^3 10*3/mm3 4.6-10.2 [...] Panel - Chemistry sodium, serum 139 mmol/L 386-394 1575/12/03 carbon dioxide, venous blood 28.5 mmol/L 21.0-32.0 [...] 5.5 % 4.3-6.0 cholesterol, serum 159 mg/dL 902-430 7120/12/03 triglyceride, serum, fasting 118 mg/dL 30-200 HDL [...] Panel - Chemistry sodium, serum 139 mmol/L 330-884 2041/12/22 carbon dioxide, venous blood 26.8 mmol/L 21.0-32.0 potassium, serum 4.2 mmol/L 3.5-5.2 chloride, serum 103 mmol/L 98-107 blood glucose 115 mg/dL 65-110 urea nitrogen, blood 20 mg/dL 7-18 creatinine, serum 0.90 mg/dL 0.55-1.30 alanine aminotransferase (SGPT), serum 38 U/L 12-78 aspartate aminotransferase (SGOT), serum 19 U/L 15-37 calcium, serum 8.6 mg/dL 8.5-10.1 bilirubin, serum, total 0.30 mg/dL 0.00-1.00 sodium, serum 139 mmol/L 517-555 2977/01/11 carbon dioxide, venous blood 26.6 mmol/L 21.0-32.0 potassium, serum 4.1 mmol/L 3.5-5.2 chloride, serum 100 mmol/L 98-107 blood glucose 86 mg/dL 65-110 urea nitrogen, blood 16 mg/dL 7-18 creatinine, serum 1.00 mg/dL 0.55-1.30 alanine aminotransferase (SGPT), serum 48 U/L aspartate aminotransferase (SGOT), serum 17 U/L 15-37 calcium, serum 9.1 mg/dL 8.5-10.1 bilirubin, serum, total 0.40 mg/dL 0.00-1.00 sodium, serum 142 mmol/L 786-529 9284/06/08 carbon dioxide, venous blood 27.6 mmol/L 21.0-32.0 [...] Rate - Chemistry sodium, serum 139 mmol/L 436-225 7328/12/11 carbon dioxide, venous blood 25.4 mmol/L 21.0-32.0 [...] mg/dL Encounters Code Encounter Date Provider Facility CPT-38911 Level 3 Est. Patient 08:56:03 CDT Luigi Martínez [facility] CPT-45842 Level 4 Est. Patient 12:11:48 CDT Fabiola Johnson [facility] CPT-67408 Level 3 New Patient 16:53:37 CDT Albert Caldera MD [facility] CPT-90647 Level 3 Est. Patient 11:25:49 CDT Renzo Thornton DO [facility] CPT-92109 Level 3 Est. Patient 15:22:01 CDT Ahmet Carbajal MD [facility] CPT-62912 Level 4 Est. Patient 09:00:51 [employer]ANE [employer]END[employer] Vishal Hui MD [facility] CPT-86196 Level 3 Est. Patient 11:37:33 [employer]ANE [employer] ATTENDANT Vishal Hui MD [facility] CPT-76447 Level 3 Est. Patient 08:41:09 [employer]ANE [employer] ATTEND[employer] Vishal Hui MD [facility] CPT-92519 Level 4 Est. Patient 10:19:35 [employer]ANE [employer] ATTENDANT Vishal Hui MD [facility] CPT-31887 Level 3 Est. Patient 13:35:45 CDT Vishal Hui MD [facility] CPT-52386 Level 4 Est. Patient 10:08:37 CDT Vishal Hui MD [facility] CPT-59157 Level 3 Est. Patient 11:22:10 CDT Vishal Hui MD [facility] CPT-02513 Level 3 Est. Patient 11:03:32 CDT Sahara Rodriguez MD PhD [facility] CPT-94410 Level 3 Est. Patient 09:41:35 CDT Vishal Hui MD [facility] CPT-93406 Level 3 Est. Patient 12:00:41 CDT Neeraj Collins MD [facility] CPT-20895 Level 3 Est. Patient 09:16:24 CDT Vishal Hui MD [facility] CPT-71980 Level 4 Est. Patient 13:59:09 CDT Neeraj Collins MD [facility] CPT-64992 Level 3 Est. Patient 15:19:43 CDT Renzo Thornton [facility] CPT-23903 Level 3 Est. Patient 18:10:26 CDT Sahara Rodriguez MD PhD [facility] CPT-46652 Level 3 Est. Patient 14:49:50 CDT Vishal Hui MD [facility] CPT-17489 Level 4 Est. Patient 18:41:46 CDT Neeraj Collins MD [facility] CPT-87061 Level 4 Est. Patient 09:18:38 [employer]PLANE [employer] ATTENDANT Vishal Hui MD [facility] CPT-12585 Level 3 Est. Patient 14:43:55 [employer]PLANE [employer] ATTENDANT Vishal Hui MD [facility] CPT-55347 Level 3 Est. Patient 15:26:33 [employer]PLANE [employer]IGHT ATTENDANT Sahara Rodriguez MD PhD [facility] CPT-90423 Level 3 Est. Patient 10:32:14 [employer]ANE [employer] ATTENDANT Vishal Hui MD [facility] CPT-98572 Level 3 Est. Patient 15:12:52 [employer]PLANE [employer] ATTENDANT Vishal Hui MD [facility] CPT-93891 Level 4 Est. Patient 09:19:27 CDT Vishal Hui MD [facility] CPT-35285 Level 3 Est. Patient 15:53:00 CDT Renzo Thornton DO [facility] CPT-79976 Level 3 Est. Patient 15:50:30 CDT Renzo Thornton [facility] CPT-84835 Level 3 Est. Patient 16:55:24 CDT Vishal Hui MD [facility] Procedures Code Procedure Name Date Entry Date Standard Description CPT-74890 Cervical Min 4V - XRAY USE ONLY 09:01:40 CDT CPT-70694 Chest 2V Frontal and Lat - XRAY USE ONLY 11:06:31 CDT CPT-37682 EKG Trac and Interp - XRAY USE ONLY 11:31:43 CDT 08/26 CPT-J3420 Vitamin B12 1000mcg (Cyanocobalamin) 08:10:26 [employer]ANE [employer] ATTEND[employer] 04/12 CPT-93558 Abx/Therapy Injection 08:10:26 [employer]PLANE [employer]IGHT ATTEND[employer] CPT-G0438 Initial Annual Wellness Exam 19:01:01 [employer]ANE [employer] ATTEND[employer] CPT-J3420 Vitamin B12 1000mcg (Cyanocobalamin) 16:57:46 CDT 08/14 CPT-07643 Recombivax HB Injection Suspension 5 MCG/0.5ML 08:37:50 [employer]ANE [employer] ATTENDANT CPT-29821 Immunization Single Admin 08:37:50 [employer]ANE [employer] ATTENDANT CPT-J3420 Vitamin B12 1000mcg (Cyanocobalamin) 08:32:16 [employer]ANE [employer] ATTENDANT 03/11 CPT-06934 Abx/Therapy Injection 08:32:16 [employer]PLANE [employer]IGHT ATTENDANT CPT-44848 Chest 2V Frontal and Lat 11:46:38 [employer]ANE [employer] ATTENDANT CPT-15101 Venipuncture Draw Fee 09:12:45 [employer]ANE [employer] ATTEND[employer] CPT-J3420 Vitamin B12 1000mcg (Cyanocobalamin) 08:50:15 [employer]ANE [employer] ATTENDANT 02/08 CPT-46394 Abx/Therapy Injection 08:50:15 [employer]PLANE FLIGHT ATTENDANT CPT-Cryo Cryotherapy 10:19:35 [employer]ANE [employer] ATTENDANT CPT-000 Give Appropriate Flu Vaccine 09:22:16 CDT CPT-J3420 Vitamin B12 1000mcg (Cyanocobalamin) 19:08:57 CDT 01/11 CPT-64317 Abx/Therapy Injection 19:08:57 CDT CPT-J3420 Vitamin B12 1000mcg (Cyanocobalamin) 08:19:08 CDT 12/11 CPT-35408 Abx/Therapy Injection 08:19:08 CDT CPT-J3420 Vitamin B12 1000mcg (Cyanocobalamin) 14:48:00 CDT 11/09 CPT-02295 Abx/Therapy Injection 14:47:59 CDT CPT-J3420 Vitamin B12 1000mcg (Cyanocobalamin) 08:34:04 CDT 10/09 CPT-74155 Abx/Therapy Injection 08:34:04 CDT CPT-J3420 Vitamin B12 1000mcg (Cyanocobalamin) 09:18:52 CDT 09/11 CPT-86399 Abx/Therapy Injection 09:18:52 CDT CPT-J3420 Vitamin B12 1000mcg (Cyanocobalamin) 08:35:44 CDT 09/04 CPT-80679 Abx/Therapy Injection 08:35:44 CDT CPT-68436 Immunization Single Admin 11:07:16 CDT CPT-84317 Hepatitis B adult IM 11:07:16 CDT CPT-J3420 Vitamin B12 1000mcg (Cyanocobalamin) 11:00:49 CDT 08/28 CPT-J1040 Depo Medrol 80 mg (Methyl Prednisolone Acetate) 11:00: 49 CDT CPT-08076 Abx/Therapy Injection 11:00:49 CDT CPT-J1040 Depo Medrol 80 mg (Methyl Prednisolone Acetate) 09:16: 23 CDT CPT-J3420 Vitamin B12 1000mcg (Cyanocobalamin) 08:27:05 CDT 08/20 CPT-78879 Abx/Therapy Injection 08:27:05 CDT CPT-10174 Recombivax HB Injection Suspension 5 MCG/0.5ML 10:00:41 CDT CPT-48785 Administration single or combination vaccine inc oral 10 :00:41 CDT CPT-18410 Sono transvag pelvis non OB uterus ovaries cervix 16:36: 57 CDT CPT-10674 LS spine comp w obliq 09:50:55 [employer]ANE [employer]END[employer] CPT-01020 Abd compl w upright 09:50:55 [employer]ANE [employer] ATTEND[employer] CPT-J1100 Decadron 4mg (Dexamethasone) 15:51:24 [employer]ANE [employer] ATTENDANT CPT-J1030 Depo Medrol 40 mg (Methyl Prednisolone Acetate) 15:51: 24 [employer] ATTENDANT CPT-76708 Abx/Therapy Injection 15:51:24 AIRPLANE FLIGHT ATTENDANT CPT-J1100 Decadron 4mg (Dexamethasone) 15:26:33 [employer]PLANE FL[employer] ATTENDANT CPT-J1030 Depo Medrol 40 mg (Methyl Prednisolone Acetate) 15:26: 33 [employer] FL[employer] ATTENDANT CPT-43169 Sono retroperitoneal complete kidneys and bladder 17:15: 30 CDT CPT-39939 Abd compl w upright 16:09:25 CDT CPT-J1100 Decadron 8mg (Dexamethasone) 17:07:57 CDT CPT-11804 Abx/Therapy Injection 17:07:57 CDT CPT-J1100 Decadron 8mg (Dexamethasone) 16:55:24 CDT CPT-09230 Chest 2V Frontal and Lat 16:32:44 CDT
--- OUTSIDE RECORDS SUMMARY | 2016-11-05 00:14 | XMS REPORT | Clinical Summary ---
Author Author Admin, FLOR Organization [employer] Address Unknown Phone Unavailable Allergies, Adverse [...] sites Morbid obesity 278.01 Active Juliet Kimbrough [employer] Morbid obesity 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 Active Juliet [...] breath Nocturnal hypoxia 799.02 Active Fabiola Johnson [employer] Hypoxemia Neck pain 723.1 Resolved [...] vagina q pm x 7 MICONAZOLE NITRATE 30013592966 Active Pacollina Johnl [employer] Active FLAGYL 500 MG TAB 1 tablet by mouth bid METRONIDAZOLE 63518553016 Active Jillina Frazell [employer] Active TESSALON PERLES 100 MG CAP 1 to 2 tablets by mouth 3 times daily as needed for cough BENZONATATE 62351398705 No Longer Active Tataina Messizell [employer] Active ABILIFY MAINTENA 400 MG IM SUSR 400mg injection every 26 days ARIPIPRAZOLE 11291500658 Active Silvia Casey [employer] Active IMITREX 50 MG ORAL TABS 0.5 po x 1 PRN Headache. May repeat dose x 1 in 2 hours if needed SUMATRIPTAN SUCCINATE 85165756110 Active Vishal Hui MD Active OXYCODONE HCL ER 10 MG ORAL T12A 1/2 tab by mouth every 4 hours prn OXYCODONE HCL 95528993061 Active Neeraj Collins MD Active METHYLPREDNISOLONE 4 MG ORAL TABS po daily METHYLPREDNISOLONE 02857575811 Active Vishal Hui MD Active LEVOFLOXACIN 500 MG ORAL TABS po daily LEVOFLOXACIN 32540817268 Active Vishal Hui MD Active CHANTIX STARTING MONTH EARNEST 0.5 MG X 11 & 1 MG X 42 TABS take as directed 2015 VARENICLINE TARTRATE 81884147840 Active Ahmet Carbajal MD Active CHANTIX 1 MG TABS 1 twice a day to help quit smoking VARENICLINE TARTRATE 84528942623 Active Ahmet Carbajal MD Active HYDROCODONE-ACETAMINOPHEN 5-325 MG TABS 1 to 2 four times a day as needed for pain use until can be seen by specialist HYDROCODONE- ACETAMINOPHEN 20262307691 No Longer Active Vishal Hui MD Active PROAIR HFA 108 (90 BASE) MCG/ACT AERS 2 puffs four times a day as needed 2015 ALBUTEROL SULFATE 91591536406 No Longer Active Vishal Hui MD Active PREDNISONE 20 MG TABS 2 daily for 5 days then 1 daily for 5 days PREDNISONE 54565014931 No Longer Active Vishal Hui MD Active ZITHROMAX Z-EARNEST 250 MG TABS 2 today and then 1 daily for 4 days AZITHROMYCIN 32047122771 No Longer Active Vishal Hui MD Active DICLOFENAC SODIUM 50 MG TBEC 1 tablet by mouth four times daily PRN Pain 2015 DICLOFENAC SODIUM 13908569022 Active Vishal Hui MD Active DICLOFENAC POTASSIUM TABS Take 1 tablet twice a day (pt. is not sure of the dose.) DICLOFENAC POTASSIUM TABS 63754062041 No Longer Active Vishal Hui MD Active VERAPAMIL HCL ER 120 MG ORAL CR-TABS Take 1 tablet by mouth twice a day. VERAPAMIL HCL 63212679632 Active Vishal Hui MD Active FLAGYL 500 MG TAB 1 tablet by mouth bid METRONIDAZOLE 52332209859 No Longer Active Vishal Hui MD Active FLUTICASONE PROPIONATE 50 MCG/ACT SUSP 2 sprays each nostril daily before bed. FLUTICASONE PROPIONATE 85767437783 Active Fabiola Johnson APRN Active ADZENYS XR-ODT 6.3 MG ORAL TBED 1 tab po daily for ADHD AMPHETAMINE 63550787289 Active Fabiola Johnson APRN Active BENADRYL 25 MG CAP 4 po at bedtime for insomnia DIPHENHYDRAMINE HCL 35598979599 Active Fabiola Johnson APRN Active KLONOPIN 1 MG ORAL TABS 1 tab po TID CLONAZEPAM 16179199486 Active Fabiola Johnson APRN Active VALIUM 5 MG TAB Take 1-2 tablets daily DIAZEPAM 12310364640 No Longer Active Fabiola Johnson APRN Active METOPROLOL TARTRATE 25 MG ORAL TABS 1/2 tablet twice daily for heart rate and blood pressure METOPROLOL TARTRATE 99037254237 No Longer Active Fabiola Johnson APRN Active MIRALAX ORAL POWD 17GMS DAILY IN WATER POLYETHYLENE GLYCOL 3350 95269150201 Active Vishal Hui MD Active VIIBRYD 10 MG ORAL TABS Take 1 tablet once a day VILAZODONE HCL 69029915723 Active Ahmet Carbajal MD Active MIRALAX PACK 1 po qd PRN Constipation POLYETHYLENE GLYCOL 3350 93021236818 No Longer Active Ahmet Carbajal MD Active MINIPRESS 2 MG CAPS 4 cap po at night PRAZOSIN HCL 11673788489 No Longer Active Ahmet Carbajal MD Active PIROXICAM 20 MG CAPS 1 cap po qd PRN Pain PIROXICAM 91560618019 No Longer Active Ahmet Carbajal MD Active TRAMADOL HCL 50 MG TABS 1-2 po TID PRN Pain TRAMADOL HCL 53668552381 No Longer Active Ahmet Carbajal MD Active METOPROLOL TARTRATE 50 MG TAB 1 po bid METOPROLOL TARTRATE 19855851007 No Longer Active Ahmet Carbajal MD Active ABILIFY 15 MG ORAL TABS 1 tab daily ARIPIPRAZOLE 06451663488 No Longer Active Ahmet Carbajal MD Active PROZAC 20 MG ORAL CAPS 1 tab daily FLUOXETINE HCL 06555052480 No Longer Active Ahmet Carbajal MD Active AMBIEN 5 MG ORAL TABS 1 tab at bedtime ZOLPIDEM TARTRATE 91894612510 No Longer Active Ahmet Carbajal MD Active PREDNISONE 20 MG TAB 2 tabs daily for 4 days, 1 tab daily for 4 days, 1/2 tab daily for 4 days PREDNISONE 34881566152 No Longer Active Ahmet Carbajal MD Active KEFLEX 500 MG CAP 1 po TID x 10 days CEPHALEXIN 86091642977 No Longer Active Vishal Hui MD Active TOPAMAX 50 MG ORAL TABS 1 tab twice daily TOPIRAMATE 43110801049 Active Vishal Hui MD Active SAPHRIS 5 MG SUBL 1 po bid ASENAPINE MALEATE 34644277147 No Longer Active Luigi Martínez [employer] Active LATUDA 80 MG TABS Take one by mouth daily LURASIDONE HCL 79484381064 No Longer Active Jillina Johnl [employer] Active AMLODIPINE BESYLATE 5 MG TABS 1 tablet by mouth daily AMLODIPINE BESYLATE 55172295487 No Longer Active Luigi Martínez [employer] Active AMITRIPTYLINE HCL 100 MG TAB one at hs AMITRIPTYLINE HCL 83050939293 No Longer Active Vishal Hui MD Active TRAZODONE HCL 100 MG TAB take 1 at bedtime TRAZODONE HCL 47746710591 No Longer Active Vishal Hui MD Active VYVANSE 40 MG CAPS 1 daily, LISDEXAMFETAMINE DIMESYLATE 05530616917 No Longer Active Vishal Hui MD Active IBUPROFEN 600 MG TAB 1 po TID PRN IBUPROFEN 14528680969 No Longer Active Vishal Hui MD Active PROZAC 20 MG CAP Take one by mouth daily FLUOXETINE HCL 44131258924 No Longer Active Vishal Hui MD Active ZOFRAN 4 MG TABS 1 po q6hr PRN Nausea ONDANSETRON HCL Active Vishal Hui MD Active BACTRIM DS 800-160 MG TABS 1 pill by mouth twice daily SULFAMETHOXAZOLE-TRIMETHOPRIM 65836735642 No Longer Active Sahara Rodriguez MD PhD Active DIFLUCAN 150 MG TAB 1 tablet by mouth daily FLUCONAZOLE 47478207954 No Longer Active Vishal Hui MD Active TIZANIDINE HCL 4 MG TABS 1 po q6hr PRN Muscle Spasm/Back Pain TIZANIDINE HCL 18836378817 Active Vishal Hui MD Active CLINDAMYCIN HCL 150 MG CAPS 1 four times a day CLINDAMYCIN HCL 60355441335 No Longer Active Neeraj Collins MD Active KEFLEX 500 MG ORAL CAPS 1 cap QID by mouth CEPHALEXIN 64956299625 No Longer Active Neeraj Collins MD Active DIFLUCAN 150 MG TABS 1 pill every other day x 2 doses FLUCONAZOLE 01561824254 No Longer Active Sahara Rodriguez MD PhD Active MELATONIN 3 MG CAPS 2 po q hs MELATONIN 36573488931 No Longer Active Sahara Rodriguez MD PhD Active MULTIVITAMINS CAPS Take one by mouth daily MULTIPLE VITAMIN 34226999580 No Longer Active Sahara Rodriguez MD PhD Active BACTRIM DS 800-160 MG TAB 1 tab by mouth twice daily TRIMETHOPRIM-SULFAMETHOXAZOLE 72663759244 No Longer Active Sahaar Rodriguez MD PhD Active [employer] PROBIOTIC ORAL CHEW 2 daily po PROBIOTIC PRODUCT 77194962527 No Longer Active Sahara Rodriguez MD PhD Active BACTRIM DS 800-160 MG TABS 1 po BID x 7 days SULFAMETHOXAZOLE-TRIMETHOPRIM 74490677222 No Longer Active Vishal Hui MD Active CHANTIX STARTING MONTH EARNEST 0.5 MG X 11 & 1 MG X 42 TABS 0.5mg daily for 3 days , then 0.5mg BID for 4 days, then 1mg BID VARENICLINE TARTRATE 03525727142 No Longer Active TAMARA Gray Active VERAPAMIL HCL CR 120 MG TAB CR 1 po bid VERAPAMIL HCL 33302179221 No Longer Active Vishal Hui MD Active METOPROLOL SUCCINATE 50 MG TB24 1 tablet by mouth daily METOPROLOL SUCCINATE 56836222752 No Longer Active Vishal Hui MD Active SAPHRIS 10 MG SUBL 1 tab po bid ASENAPINE MALEATE 20601346013 No Longer Active Vishal Hui MD Active LISINOPRIL 20 MG TABS 1 tab po qd LISINOPRIL 22336139012 No Longer Active Vishal Hui MD Active LATUDA 20 MG TABS Take one by mouth daily LURASIDONE HCL 45893713923 No Longer Active Vishal Hui MD Active TRAZODONE HCL 50 MG TABS 1/2 tab po qd prn for anxiety TRAZODONE HCL 34480569134 No Longer Active Vishal Hui MD Active OMEPRAZOLE 20 MG TBEC 1 po q a.m. 30min prior to first food intake OMEPRAZOLE 55363319552 Active Vishal Hui MD Active RANITIDINE HCL 150 MG CAPS 1 twice a day RANITIDINE HCL 95648330380 Active Jillina Messidwightl [employer] Active LINZESS 290 MCG CAPS Take one by mouth daily LINACLOTIDE 83462850601 No Longer Active Vishal Hui MD Active SAPHRIS 5 MG SUBL 1 tab po qd ASENAPINE MALEATE 99391371639 No Longer Active Vishal Hui MD Active ZALEPLON 10 MG CAPS 1 cap po every other night ZALEPLON 16216741174 No Longer Active Vishal Hui MD Active LYRICA 50 MG CAPS 1 tab po TID PREGABALIN 23451036501 No Longer Active Vishal Hui MD Active LORATADINE 10 MG TABS 1 tab po qd LORATADINE 24317690630 No Longer Active Vishal Hui MD Active VERAPAMIL HCL ER 180 MG CR-TABS 1 tab po bid VERAPAMIL HCL 81499169222 No Longer Active Vishal Hui MD Active MIRALAX POWD 1 capfull once daily POLYETHYLENE GLYCOL 3350 54128707991 No Longer Active Vishal Hui MD Active PREDNISONE 20 MG TABS 1 tab po qd PREDNISONE 81212882556 No Longer Active Renzo Thornton DO Active LEVOFLOXACIN 500 MG TABS 1 tab po qd LEVOFLOXACIN 57196954626 No Longer Active Renzo Thornton DO Active BUSPIRONE HCL 15 MG TABS 1 tab po TID BUSPIRONE HCL 82583399936 No Longer Active Renzo Thornton DO Active BENZTROPINE MESYLATE 1 MG TABS 1 tab po qd BENZTROPINE MESYLATE 67961107992 No Longer Active Renzo Thornton DO Active ATENOLOL 25 MG TABS 1 tab po qd ATENOLOL 00237677074 No Longer Active Renzo Thornton DO Active ESCITALOPRAM OXALATE 20 MG TABS 1 tab po qd ESCITALOPRAM OXALATE 72868804329 No Longer Active Renzo Thornton DO Active ADVAIR DISKUS 250-50 MCG/DOSE AEPB 1 puff BID FLUTICASONE-SALMETEROL 92344204699 No Longer Active Renzo Thornton DO Active PREDNISONE 20 MG TAB 2 tabs daily for 3 days, 1 tab daily for 3 days, 1/2 tab daily for 2 days PREDNISONE 82251070559 No Longer Active Vishal Hui MD Active CEFDINIR 300 MG CAPS by mouth twice a day CEFDINIR 90733540059 No Longer Active Vishal Hui MD Active LANSOPRAZOLE 30 MG CPDR 1 cap po qd LANSOPRAZOLE 79604908699 No Longer Active Vishal Hui MD Active BACLOFEN 20 MG TABS 1 tab po tid BACLOFEN 26405566011 No Longer Active Vishal Hui MD Active ADVAIR DISKUS 250-50 MCG/DOSE AEPB 1 puff BID ADVAIR DISKUS 250-50 MCG/DOSE AEPB FLUTICASONE-SALMETEROL Inactive ESCITALOPRAM OXALATE 20 MG TABS 1 tab po qd ESCITALOPRAM OXALATE 20 MG TABS 121822 ESCITALOPRAM OXALATE Inactive ATENOLOL 25 MG TABS 1 tab po qd ATENOLOL 25 MG TABS 784890 ATENOLOL Inactive BENZTROPINE MESYLATE 1 MG TABS 1 tab po qd BENZTROPINE MESYLATE 1 MG TABS 478941 BENZTROPINE MESYLATE Inactive BUSPIRONE HCL 15 MG TABS 1 tab po TID BUSPIRONE HCL 15 MG TABS 817524 BUSPIRONE HCL Inactive LEVOFLOXACIN 500 MG TABS 1 tab po qd LEVOFLOXACIN 500 MG TABS 169219 LEVOFLOXACIN Inactive PREDNISONE 20 MG TABS 1 tab po qd PREDNISONE 20 MG TABS 510241 PREDNISONE Inactive MIRALAX POWD 1 capfull once daily MIRALAX POWD 828812 POLYETHYLENE GLYCOL 3350 Inactive VERAPAMIL HCL ER 180 MG CR-TABS 1 tab po bid VERAPAMIL HCL ER 180 MG CR-TABS VERAPAMIL HCL Inactive LORATADINE 10 MG TABS 1 tab po qd LORATADINE 10 MG TABS 753142 LORATADINE Inactive LYRICA 50 MG CAPS 1 tab po TID LYRICA 50 MG CAPS PREGABALIN Inactive ZALEPLON 10 MG CAPS 1 cap po every other night ZALEPLON 10 MG CAPS 170135 ZALEPLON Inactive SAPHRIS 5 MG SUBL 1 tab po qd SAPHRIS 5 MG SUBL ASENAPINE MALEATE Inactive TRAZODONE HCL 50 MG TABS 1/2 tab po qd prn for anxiety TRAZODONE HCL 50 MG TABS 188969 TRAZODONE HCL Inactive LATUDA 20 MG TABS Take one by mouth daily LATUDA 20 MG TABS LURASIDONE HCL Inactive LISINOPRIL 20 MG TABS 1 tab po qd LISINOPRIL 20 MG TABS 297333 LISINOPRIL Inactive SAPHRIS 10 MG SUBL 1 [...] twice daily BACTRIM DS 800-160 MG TAB 784231 TRIMETHOPRIM-SULFAMETHOXAZOLE Inactive MULTIVITAMINS CAPS Take one by mouth daily MULTIVITAMINS CAPS MULTIPLE VITAMIN Inactive MELATONIN 3 MG CAPS 2 po q hs MELATONIN 3 MG CAPS 853353 MELATONIN Inactive KEFLEX 500 MG ORAL CAPS 1 cap QID by mouth KEFLEX 500 MG ORAL CAPS 100791 CEPHALEXIN Inactive CLINDAMYCIN HCL 150 MG CAPS 1 four times a day CLINDAMYCIN HCL 150 MG CAPS 802715 CLINDAMYCIN HCL Inactive DIFLUCAN 150 MG TAB 1 tablet by mouth daily DIFLUCAN 150 MG TAB 684297 FLUCONAZOLE Inactive PROZAC 20 MG CAP Take one by mouth daily PROZAC 20 MG CAP 298198 FLUOXETINE HCL Inactive IBUPROFEN 600 MG TAB 1 po TID PRN IBUPROFEN 600 MG TAB 538487 IBUPROFEN Inactive VYVANSE 40 MG CAPS 1 daily, VYVANSE 40 MG CAPS LISDEXAMFETAMINE DIMESYLATE Inactive TRAZODONE HCL 100 MG TAB take 1 at bedtime TRAZODONE HCL 100 MG TAB 900698 TRAZODONE HCL Inactive AMITRIPTYLINE HCL 100 MG TAB one at hs AMITRIPTYLINE HCL 100 MG TAB 452020 AMITRIPTYLINE HCL Inactive AMLODIPINE BESYLATE 5 MG TABS 1 tablet by mouth daily AMLODIPINE BESYLATE 5 MG TABS 004777 AMLODIPINE BESYLATE Inactive LATUDA 80 MG TABS Take one by mouth daily LATUDA 80 MG TABS LURASIDONE HCL Inactive SAPHRIS 5 MG SUBL 1 po bid SAPHRIS 5 MG SUBL ASENAPINE MALEATE Inactive PREDNISONE 20 MG TAB 2 tabs daily for 4 days, 1 tab daily for 4 days, 1/2 tab daily for 4 days PREDNISONE 20 MG TAB 645555 PREDNISONE Inactive AMBIEN 5 MG ORAL TABS 1 tab at bedtime AMBIEN 5 MG ORAL TABS 750296 ZOLPIDEM TARTRATE Inactive PROZAC 20 MG ORAL CAPS 1 tab daily PROZAC 20 MG ORAL CAPS 304144 FLUOXETINE HCL Inactive ABILIFY 15 MG ORAL TABS 1 tab daily ABILIFY 15 MG ORAL TABS 342722 ARIPIPRAZOLE Inactive METOPROLOL TARTRATE 50 MG TAB 1 po bid METOPROLOL TARTRATE 50 MG TAB 774092 METOPROLOL TARTRATE Inactive TRAMADOL HCL 50 MG TABS 1-2 po TID PRN Pain TRAMADOL HCL 50 MG TABS 133161 TRAMADOL HCL Inactive PIROXICAM 20 MG CAPS 1 cap po qd PRN Pain PIROXICAM 20 MG CAPS 745295 PIROXICAM Inactive MINIPRESS 2 MG CAPS 4 cap po at night MINIPRESS 2 MG CAPS 673876 PRAZOSIN HCL Inactive MIRALAX PACK 1 po qd PRN Constipation MIRALAX PACK 696022 POLYETHYLENE GLYCOL 3350 Inactive METOPROLOL TARTRATE 25 MG ORAL TABS 1/2 tablet twice daily for heart rate and blood pressure METOPROLOL TARTRATE 25 MG ORAL TABS 674063 METOPROLOL TARTRATE Inactive VALIUM 5 MG TAB Take 1-2 tablets daily VALIUM 5 MG TAB 070566 DIAZEPAM Inactive FLAGYL 500 MG TAB 1 tablet by mouth bid FLAGYL 500 MG TAB 675679 METRONIDAZOLE Inactive DICLOFENAC POTASSIUM TABS Take 1 tablet twice a day (pt. is not sure of the dose.) DICLOFENAC POTASSIUM TABS DICLOFENAC POTASSIUM TABS Inactive ZITHROMAX Z-EARNEST 250 MG TABS 2 today and then 1 daily for 4 days ZITHROMAX Z-EARNEST 250 MG TABS 4377808 AZITHROMYCIN Inactive PREDNISONE 20 MG TABS 2 daily for 5 days then 1 daily for 5 days PREDNISONE 20 MG TABS 404546 PREDNISONE Inactive PROAIR HFA 108 (90 BASE) MCG/ACT AERS 2 puffs four times a day as needed 2015 PROAIR HFA 108 (90 BASE) MCG/ACT AERS ALBUTEROL SULFATE Inactive HYDROCODONE-ACETAMINOPHEN 5-325 MG TABS 1 to 2 four times a day as needed for pain use until can be seen by specialist HYDROCODONE- ACETAMINOPHEN 5-325 MG TABS 189864 HYDROCODONE-ACETAMINOPHEN Inactive TESSALON PERLES 100 MG CAP 1 to 2 tablets by mouth 3 times daily as needed for cough TESSALON PERLES 100 MG CAP 806797 BENZONATATE Inactive CEFDINIR 300 MG CAPS by mouth twice a day CEFDINIR 300 MG CAPS 549334 CEFDINIR Inactive PREDNISONE 20 MG TAB 2 tabs daily for 3 days, 1 tab daily for 3 days, 1/2 tab daily for 2 days PREDNISONE 20 MG TAB 943584 PREDNISONE Inactive BACTRIM DS 800-160 MG TABS 1 po BID x 7 days BACTRIM DS 800-160 MG TABS 19820521 SULFAMETHOXAZOLE-TRIMETHOPRIM Inactive DIFLUCAN 150 MG TABS 1 pill every other day x 2 doses DIFLUCAN 150 MG TABS 896740 FLUCONAZOLE Inactive BACTRIM DS 800-160 MG TABS 1 pill by mouth twice daily BACTRIM DS 800-160 MG TABS 19820521 SULFAMETHOXAZOLE-TRIMETHOPRIM Inactive KEFLEX 500 MG CAP 1 po TID x 10 days KEFLEX 500 MG CAP 890849 CEPHALEXIN Inactive Advance Directives Directive Description Start [...] % 11.6-14.8 platelet count 394 10^3/MM^3 10*3/mm3 249-353 5134/01/11 leukocyte count, blood 13.8 10^3/MM^3 10*3/mm3 4.6-10.2 [...] Panel - Chemistry sodium, serum 139 mmol/L 524-136 5473/12/03 carbon dioxide, venous blood 28.5 mmol/L 21.0-32.0 [...] 5.5 % 4.3-6.0 cholesterol, serum 159 mg/dL 790-287 3651/12/03 triglyceride, serum, fasting 118 mg/dL 30-200 [...] Panel - Chemistry sodium, serum 139 mmol/L 172-207 8034/12/22 carbon dioxide, venous blood 26.8 mmol/L 21.0-32.0 potassium, serum 4.2 mmol/L 3.5-5.2 chloride, serum 103 mmol/L 98-107 blood glucose 115 mg/dL 65-110 urea nitrogen, blood 20 mg/dL 7-18 creatinine, serum 0.90 mg/dL 0.55-1.30 alanine aminotransferase (SGPT), serum 38 U/L 12-78 aspartate aminotransferase (SGOT), serum 19 U/L 15-37 calcium, serum 8.6 mg/dL 8.5-10.1 bilirubin, serum, total 0.30 mg/dL 0.00-1.00 sodium, serum 139 mmol/L 586-089 8425/01/11 carbon dioxide, venous blood 26.6 mmol/L 21.0-32.0 potassium, serum 4.1 mmol/L 3.5-5.2 chloride, serum 100 mmol/L 98-107 blood glucose 86 mg/dL 65-110 urea nitrogen, blood 16 mg/dL 7-18 creatinine, serum 1.00 mg/dL 0.55-1.30 alanine aminotransferase (SGPT), serum 48 U/L aspartate aminotransferase (SGOT), serum 17 U/L -37 calcium, serum 9.1 mg/dL 8.5-10.1 bilirubin, serum, total 0.40 mg/dL 0.00-1.00 sodium, serum 142 mmol/L 351-774 6696/06/08 carbon dioxide, venous blood 27.6 mmol/L 21.0-32.0 potassium, serum 4.0 mmol/L 3.5-5.2 chloride, serum 105 mmol/L 98-107 blood glucose 95 mg/dL 65-110 urea nitrogen, blood 8 mg/dL 7-18 creatinine, serum 0.75 mg/dL 0.55-1.30 alanine aminotransferase (SGPT), serum 49 U/L aspartate aminotransferase (SGOT), serum 28 U/L 15-37 calcium, serum 9.4 mg/dL 8.5-10.1 bilirubin, serum, total 0.30 mg/dL 0.00-1.00 sodium, serum 140 mmol/L 473-497 2518/08/08 carbon dioxide, venous blood 33.7 mmol/L 21.0-32.0 [...] Rate - Chemistry sodium, serum 139 mmol/L 992-287 0438/12/11 carbon dioxide, venous blood 25.4 mmol/L 21.0-32.0 [...] mg/dL Encounters Code Encounter Date Provider Facility CPT-19509 Level 3 Est. Patient 13:59:59 CDT Luigi Martínez [facility] CPT-33419 Level 3 Est. Patient 18:18:53 CDT Neeraj Collins MD [facility] CPT-54862 Level 3 Est. Patient 15:50:44 CDT Vishal Hui MD [facility] CPT-75037 Level 3 Est. Patient 11:36:17 CDT Ahmet Carbajal MD [facility] CPT-63287 Level 3 Est. Patient 13:29:16 CDT Vishal Hui MD [facility] CPT-81502 Level 3 Est. Patient 14:27:52 CDT Neeraj Collins MD [facility] CPT-57765 Level 3 Est. Patient 08:56:03 CDT Luigi Martínez [facility] CPT-89969 Level 4 Est. Patient 12:11:48 CDT Fabiola Johnson [facility] CPT-53073 Level 3 New Patient 16:53:37 CDT Albert Caldera MD [facility] CPT-69602 Level 3 Est. Patient 11:25:49 CDT Renzo Thornton DO [facility] CPT-13060 Level 3 Est. Patient 15:22:01 CDT Ahmet Carbajal MD [facility] CPT-92554 Level 4 Est. Patient 09:00:51 [employer] Vishal Hui MD [facility] CPT-96385 Level 3 Est. Patient 11:37:33 [employer] Vishal Hui MD [facility] CPT-63551 Level 3 Est. Patient 08:41:09 [employer] Vishal Hui MD [facility] CPT-93082 Level 4 Est. Patient 10:19:35 [employer] Vishal Hui MD [facility] CPT-82173 Level 3 Est. Patient 13:35:45 CDT Vishal Hui MD [facility] CPT-46752 Level 4 Est. Patient 10:08:37 CDT Vishal Hui MD [facility] CPT-69181 Level 3 Est. Patient 11:22:10 CDT Vishal Hui MD [facility] CPT-83593 Level 3 Est. Patient 11:03:32 CDT Sahara Rodriguez MD [facility]-90925 Level 3 Est. Patient 09:41:35 CDT Vishal Hui MD [facility] CPT-63763 Level 3 Est. Patient 12:00:41 CDT Neeraj Collins MD [facility] CPT-59506 Level 3 Est. Patient 09:16:24 CDT Vishal Hui MD [facility]-00406 Level 4 Est. Patient 13:59:09 CDT Neeraj Collins MD [facility]-59518 Level 3 Est. Patient 15:19:43 CDT Renzo Thornton DO [facility] CPT-27468 Level 3 Est. Patient 18:10:26 CDT Sahara Rodriguez MD [facility] CPT-47683 Level 3 Est. Patient 14:49:50 CDT Vishal Hui MD [facility]-54851 Level 4 Est. Patient 18:41:46 CDT Neeraj Collins MD [facility] CPT-50215 Level 4 Est. Patient 09:18:38 [employer] Vishal Hui MD [facility]-33318 Level 3 Est. Patient 14:43:55 [employer] Vishal Hui MD [facility] CPT-66020 Level 3 Est. Patient 15:26:33 [employer] Sahara Rodriguez MD [facility]-62474 Level 3 Est. Patient 10:32:14 [employer] Vishal Hui MD [facility] CPT-99902 Level 3 Est. Patient 15:12:52 [employer] Vishal Hui MD [facility]-70102 Level 4 Est. Patient 09:19:27 CDT Vishal Hui MD [facility] CPT-94488 Level 3 Est. Patient 15:53:00 CDT Renzo Thornton [facility] CPT-12916 Level 3 Est. Patient 15:50:30 CDT Renzo Thornton [facility] CPT-05775 Level 3 Est. Patient 16:55:24 CDT Vishal Hui MD [facility] Procedures Code Procedure Name Date Entry Date Standard Description CPT-47317 UA w micro - LAB USE ONLY 16:21:13 CDT CPT-65857 Wet Mount - LAB USE ONLY 16:21:13 CDT CPT-52269 First Vx - Ix admin for Medicare patients 14:37:47 CDT CPT-79126 Fluzone Preservative Free Intramuscular Suspension 14:37 :47 CDT CPT-81350 Abx/Therapy Injection 13:54:22 CDT CPT-12916 Abx/Therapy Injection 08:47:09 CDT CPT-24883 Abx/Therapy Injection 13:29:56 CDT CPT-39285 Abx/Therapy Injection 08:36:16 CDT CPT-75258 Wet Mount - LAB USE ONLY 17:44:58 CDT CPT-06614 UA w micro - LAB USE ONLY 17:44:58 CDT CPT-25095 CMP - LAB USE ONLY 17:44:58 CDT CPT-91016 Venipuncture Draw Fee 17:44:58 CDT CPT-66633 Cervical Min 4V - XRAY USE ONLY 09:01:40 CDT CPT-71341 Chest 2V Frontal and Lat - XRAY USE ONLY 11:06:31 CDT CPT-80078 EKG Trac and Interp - XRAY USE ONLY 11:31:43 CDT 08/26 CPT-J3420 Vitamin B12 1000mcg (Cyanocobalamin) 08:10:26 [employer] 04/12 CPT-91777 Abx/Therapy Injection 08:10:26 [employer] CPT-G0438 Initial Annual Wellness Exam 19:01:01 [employer] CPT-J3420 Vitamin B12 1000mcg (Cyanocobalamin) 16:57:46 CDT 08/14 CPT-07582 Recombivax HB Injection Suspension 5 MCG/0.5ML 08:37:50 [employer] CPT-50978 Immunization Single Admin 08:37:50 [employer] CPT-J3420 Vitamin B12 1000mcg (Cyanocobalamin) 08:32:16 [employer]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 03/11 CPT-97948 Abx/Therapy Injection 08:32:16 [employer]ER HELPER CPT-11402 Chest 2V Frontal and Lat 11:46:38 [employer] HEL[employer] CPT-58421 Venipuncture Draw Fee 09:12:45 [employer] CPT-J3420 Vitamin B12 1000mcg (Cyanocobalamin) 08:50:15 [employer] HELPER 02/08 CPT-31582 Abx/Therapy Injection 08:50:15 [employer] CPT-Cryo Cryotherapy 10:19:35 [employer] CPT-000 Give Appropriate Flu Vaccine 09:22:16 CDT CPT-J3420 Vitamin B12 1000mcg (Cyanocobalamin) 19:08:57 CDT 01/11 CPT-08335 Abx/Therapy Injection 19:08:57 CDT CPT-J3420 Vitamin B12 1000mcg (Cyanocobalamin) 08:19:08 CDT 12/11 CPT-54678 Abx/Therapy Injection 08:19:08 CDT CPT-J3420 Vitamin B12 1000mcg (Cyanocobalamin) 14:48:00 CDT 11/09 CPT-91036 Abx/Therapy Injection 14:47:59 CDT CPT-J3420 Vitamin B12 1000mcg (Cyanocobalamin) 08:34:04 CDT 10/09 CPT-88666 Abx/Therapy Injection 08:34:04 CDT CPT-J3420 Vitamin B12 1000mcg (Cyanocobalamin) 09:18:52 CDT 09/11 CPT-27537 Abx/Therapy Injection 09:18:52 CDT CPT-J3420 Vitamin B12 1000mcg (Cyanocobalamin) 08:35:44 CDT 09/04 CPT-33703 Abx/Therapy Injection 08:35:44 CDT CPT-97014 Immunization Single Admin 11:07:16 CDT CPT-59696 Hepatitis B adult IM 11:07:16 CDT CPT-J3420 Vitamin B12 1000mcg (Cyanocobalamin) 11:00:49 CDT 08/28 CPT-J1040 Depo Medrol 80 mg (Methyl Prednisolone Acetate) 11:00: 49 CDT CPT-26113 Abx/Therapy Injection 11:00:49 CDT CPT-J1040 Depo Medrol 80 mg (Methyl Prednisolone Acetate) 09:16: 23 CDT CPT-J3420 Vitamin B12 1000mcg (Cyanocobalamin) 08:27:05 CDT 08/20 CPT-32774 Abx/Therapy Injection 08:27:05 CDT CPT-50381 Recombivax HB Injection Suspension 5 MCG/0.5ML 10:00:41 CDT CPT-18809 Administration single or combination vaccine inc oral 10 :00:41 CDT CPT-98953 Sono transvag pelvis non OB uterus ovaries cervix 16:36: 57 CDT CPT-79200 LS spine comp w obliq 09:50:55 [employer] CPT-41385 Abd compl w upright 09:50:55 [employer] CPT-J1100 Decadron 4mg (Dexamethasone) 15:51:24 [employer] CPT-J1030 Depo Medrol 40 mg (Methyl Prednisolone Acetate) 15:51: 24 [employer] CPT-26696 Abx/Therapy Injection 15:51:24 PAN [employer] CPT-J1100 Decadron 4mg (Dexamethasone) 15:26:33 [employer] CPT-J1030 Depo Medrol 40 mg (Methyl Prednisolone Acetate) 15:26: 33 [employer] CPT-97232 Sono retroperitoneal complete kidneys and bladder 17:15: 30 CDT CPT-17841 Abd compl w upright 16:09:25 CDT CPT-J1100 Decadron 8mg (Dexamethasone) 17:07:57 CDT CPT-33233 Abx/Therapy Injection 17:07:57 CDT CPT-J1100 Decadron 8mg (Dexamethasone) 16:55:24 CDT CPT-79337 Chest 2V Frontal and Lat 16:32:44 CDT
--- OUTSIDE RECORDS SUMMARY | 2016-11-05 00:17 | XMS REPORT | Clinical Summary ---
Author Author Admin, Dereck Organization [facility] Address Unknown Phone Unavailable Allergies, Adverse Reactions, [...] sites Morbid obesity 278.01 Active Juliet Kimbrough VIOLENT CRIMES DETECTIVE Morbid obesity 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 Active Juliet Kimbrough VIOLENT CRIMES DETECTIVE Dependence on other enabling machines and devices [...] breath Nocturnal hypoxia 799.02 Active Fabiola Johnson VIOLENT CRIMES DETECTIVE Hypoxemia Neck pain 723.1 Resolved Vishal Hui [...] infection ICD-041.12 Jim Hui MD Fatigue ICD-780.79 iJm Hui MD 2014 Vaginitis, candidal ICD-112.1 Jim [...] SUSR 400mg injection every 26 days ARIPIPRAZOLE 18571628433 Active Silvia Casey METAL CUTTER Active IMITREX 50 MG ORAL TABS 0.5 po x 1 PRN Headache. May repeat dose x 1 in 2 hours if needed SUMATRIPTAN SUCCINATE 93332959777 Active Vishal Hui MD Active OXYCODONE HCL ER 10 MG ORAL T12A 1/2 tab by mouth every 4 hours prn OXYCODONE HCL 12748613681 Active Neeraj Collins MD Active TESSALON PERLES 100 MG CAP 1 to 2 tablets by mouth 3 times daily as needed for cough BENZONATATE 94645329271 Active Vishal Hui MD Active METHYLPREDNISOLONE 4 MG ORAL TABS po daily METHYLPREDNISOLONE 62821450421 Active Vishal Hui MD Active LEVOFLOXACIN 500 MG ORAL TABS po daily LEVOFLOXACIN 17629287598 Active Vishal Hui MD Active CHANTIX STARTING MONTH EARNEST 0.5 MG X 11 & 1 MG X 42 TABS take as directed 2015 VARENICLINE TARTRATE 93668851075 Active Ahmet Carbajal MD Active CHANTIX 1 MG TABS 1 twice a day to help quit smoking VARENICLINE TARTRATE 89664135254 Active Ahmet Carbajal MD Active HYDROCODONE-ACETAMINOPHEN 5-325 MG TABS 1 to 2 four times a day as needed for pain use until can be seen by specialist HYDROCODONE- ACETAMINOPHEN 91023984595 No Longer Active Vishal Hui MD Active PROAIR HFA 108 (90 BASE) MCG/ACT AERS 2 puffs four times a day as needed 2015 ALBUTEROL SULFATE 88392640868 No Longer Active Vishal Hui MD Active PREDNISONE 20 MG TABS 2 daily for 5 days then 1 daily for 5 days PREDNISONE 70048545543 No Longer Active Vishal Hui MD Active ZITHROMAX Z-EARNEST 250 MG TABS 2 today and then 1 daily for 4 days AZITHROMYCIN 70255299253 No Longer Active Vishal Hui MD Active DICLOFENAC SODIUM 50 MG TBEC 1 tablet by mouth four times daily PRN Pain 2015 DICLOFENAC SODIUM 03512087005 Active Vishal Hui MD Active DICLOFENAC POTASSIUM TABS Take 1 tablet twice a day (pt. is not sure of the dose.) DICLOFENAC POTASSIUM TABS 37883348155 No Longer Active Vishal Hui MD Active VERAPAMIL HCL ER 120 MG ORAL CR-TABS Take 1 tablet by mouth twice a day. VERAPAMIL HCL 92521125407 Active Vishal Hui MD Active FLAGYL 500 MG TAB 1 tablet by mouth bid METRONIDAZOLE 12740548539 No Longer Active Vishal Hui MD Active FLUTICASONE PROPIONATE 50 MCG/ACT SUSP 2 sprays each nostril daily before bed. FLUTICASONE PROPIONATE 69573368720 Active Fabiola Johnson APRN Active ADZENYS XR-ODT 6.3 MG ORAL TBED 1 tab po daily for ADHD AMPHETAMINE 34953525199 Active Fabiola Johnson APRN Active BENADRYL 25 MG CAP 4 po at bedtime for insomnia DIPHENHYDRAMINE HCL 78841999120 Active Fabiola Johnson APRN Active KLONOPIN 1 MG ORAL TABS 1 tab po TID CLONAZEPAM 24671010585 Active Fabiola Johnson APRN Active VALIUM 5 MG TAB Take 1-2 tablets daily DIAZEPAM 80781059788 No Longer Active Fabiola Johnson APRN Active METOPROLOL TARTRATE 25 MG ORAL TABS 1/2 tablet twice daily for heart rate and blood pressure METOPROLOL TARTRATE 32922191651 No Longer Active Fabiola Johnson APRN Active MIRALAX ORAL POWD 17GMS DAILY IN WATER POLYETHYLENE GLYCOL 3350 85121003858 Active Vishal Hui MD Active VIIBRYD 10 MG ORAL TABS Take 1 tablet once a day VILAZODONE HCL 11754453797 Active Ahmet Carbajal MD Active MIRALAX PACK 1 po qd PRN Constipation POLYETHYLENE GLYCOL 3350 51431586817 No Longer Active Ahmet Carbajal MD Active MINIPRESS 2 MG CAPS 4 cap po at night PRAZOSIN HCL 07550772347 No Longer Active Ahmet Carbajal MD Active PIROXICAM 20 MG CAPS 1 cap po qd PRN Pain PIROXICAM 89346446216 No Longer Active Ahmet Carbajal MD Active TRAMADOL HCL 50 MG TABS 1-2 po TID PRN Pain TRAMADOL HCL 90991084433 No Longer Active Ahmet Carbajal MD Active METOPROLOL TARTRATE 50 MG TAB 1 po bid METOPROLOL TARTRATE 63913377544 No Longer Active Ahmet Carbajal MD Active ABILIFY 15 MG ORAL TABS 1 tab daily ARIPIPRAZOLE 23988251513 No Longer Active Ahmet Carbajal MD Active PROZAC 20 MG ORAL CAPS 1 tab daily FLUOXETINE HCL 08205238741 No Longer Active Ahmet Carbajal MD Active AMBIEN 5 MG ORAL TABS 1 tab at bedtime ZOLPIDEM TARTRATE 49572456738 No Longer Active Ahmet Carbajal MD Active PREDNISONE 20 MG TAB 2 tabs daily for 4 days, 1 tab daily for 4 days, 1/2 tab daily for 4 days PREDNISONE 99160028305 No Longer Active Ahmet Carbajal MD Active KEFLEX 500 MG CAP 1 po TID x 10 days CEPHALEXIN 65641617090 No Longer Active Vishal Hui MD Active TOPAMAX 50 MG ORAL TABS 1 tab twice daily TOPIRAMATE 39513594168 Active Vishal Hui MD Active SAPHRIS 5 MG SUBL 1 po bid ASENAPINE MALEATE 71003063387 No Longer Active Luigi Martínez APRN Active LATUDA 80 MG TABS Take one by mouth daily LURASIDONE HCL 51622137612 No Longer Active Jillina Fralebron NORIEGA Active AMLODIPINE BESYLATE 5 MG TABS 1 tablet by mouth daily AMLODIPINE BESYLATE 58985439112 No Longer Active Pacolljanee Martínez APRN Active AMITRIPTYLINE HCL 100 MG TAB one at hs AMITRIPTYLINE HCL 63772940969 No Longer Active Vishal Hui MD Active TRAZODONE HCL 100 MG TAB take 1 at bedtime TRAZODONE HCL 02298161275 No Longer Active Vishal Hui MD Active VYVANSE 40 MG CAPS 1 daily, LISDEXAMFETAMINE DIMESYLATE 57886394984 No Longer Active Vishal Hui MD Active IBUPROFEN 600 MG TAB 1 po TID PRN IBUPROFEN 30104555459 No Longer Active Vishal Hui MD Active PROZAC 20 MG CAP Take one by mouth daily FLUOXETINE HCL 98733829276 No Longer Active Vishal Hui MD Active ZOFRAN 4 MG TABS 1 po q6hr PRN Nausea ONDANSETRON HCL Active Vishal Hui MD Active BACTRIM DS 800-160 MG TABS 1 pill by mouth twice daily SULFAMETHOXAZOLE-TRIMETHOPRIM 46801591077 No Longer Active Sahara Rodriguez MD PhD Active DIFLUCAN 150 MG TAB 1 tablet by mouth daily FLUCONAZOLE 60381853884 No Longer Active Vishal Hui MD Active TIZANIDINE HCL 4 MG TABS 1 po q6hr PRN Muscle Spasm/Back Pain TIZANIDINE HCL 30615993407 Active Vishal Hui MD Active CLINDAMYCIN HCL 150 MG CAPS 1 four times a day CLINDAMYCIN HCL 03137759226 No Longer Active Neeraj Collins MD Active KEFLEX 500 MG ORAL CAPS 1 cap QID by mouth CEPHALEXIN 52657740146 No Longer Active Neeraj Collins MD Active DIFLUCAN 150 MG TABS 1 pill every other day x 2 doses FLUCONAZOLE 53263364045 No Longer Active Sahara Rodriguez MD PhD Active MELATONIN 3 MG CAPS 2 po q hs MELATONIN 52424042682 No Longer Active Sahara Rodriguez MD PhD Active MULTIVITAMINS CAPS Take one by mouth daily MULTIPLE VITAMIN 73860828566 No Longer Active Sahara Rodriguez MD PhD Active BACTRIM DS 800-160 MG TAB 1 tab by mouth twice daily TRIMETHOPRIM-SULFAMETHOXAZOLE 94846748189 No Longer Active Sahara Rodriguez MD PhD Active [facility] PROBIOTIC ORAL CHEW 2 daily po PROBIOTIC PRODUCT 93411243941 No Longer Active Sahara Rodriguez MD PhD Active BACTRIM DS 800-160 MG TABS 1 po BID x 7 days SULFAMETHOXAZOLE-TRIMETHOPRIM 89640841243 No Longer Active Vishal Hui MD Active CHANTIX STARTING MONTH EARNEST 0.5 MG X 11 & 1 MG X 42 TABS 0.5mg daily for 3 days , then 0.5mg BID for 4 days, then 1mg BID VARENICLINE TARTRATE 02201977922 No Longer Active TAMARA Gray Active VERAPAMIL HCL CR 120 MG TAB CR 1 po bid VERAPAMIL HCL 13938619213 No Longer Active Vishal Hui MD Active METOPROLOL SUCCINATE 50 MG TB24 1 tablet by mouth daily METOPROLOL SUCCINATE 55363270853 No Longer Active Vishal Hui MD Active SAPHRIS 10 MG SUBL 1 tab po bid ASENAPINE MALEATE 16129765816 No Longer Active Vishal Hui MD Active LISINOPRIL 20 MG TABS 1 tab po qd LISINOPRIL 51164081549 No Longer Active Vishal Hui MD Active LATUDA 20 MG TABS Take one by mouth daily LURASIDONE HCL 91959022271 No Longer Active Vishal Hui MD Active TRAZODONE HCL 50 MG TABS 1/2 tab po qd prn for anxiety TRAZODONE HCL 96864795337 No Longer Active Vishal Hui MD Active OMEPRAZOLE 20 MG TBEC 1 po q a.m. 30min prior to first food intake OMEPRAZOLE 12166804737 Active Vishal Hui MD Active RANITIDINE HCL 150 MG CAPS 1 twice a day RANITIDINE HCL 25573129057 Active Luigi Martínez VIOLENT CRIMES DETECTIVE Active LINZESS 290 MCG CAPS Take one by mouth daily LINACLOTIDE 42677121788 No Longer Active Vishal Hui MD Active SAPHRIS 5 MG SUBL 1 tab po qd ASENAPINE MALEATE 50231049198 No Longer Active Vishal Hui MD Active ZALEPLON 10 MG CAPS 1 cap po every other night ZALEPLON 45805482583 No Longer Active Vishal Hui MD Active LYRICA 50 MG CAPS 1 tab po TID PREGABALIN 11270656986 No Longer Active Vishal Hui MD Active LORATADINE 10 MG TABS 1 tab po qd LORATADINE 03125728125 No Longer Active Vishal Hui MD Active VERAPAMIL HCL ER 180 MG CR-TABS 1 tab po bid VERAPAMIL HCL 76000215360 No Longer Active Vishal Hui MD Active MIRALAX POWD 1 capfull once daily POLYETHYLENE GLYCOL 3350 98635934721 No Longer Active Vishal Hui MD Active PREDNISONE 20 MG TABS 1 tab po qd PREDNISONE 91162019965 No Longer Active Renzo Thornton DO Active LEVOFLOXACIN 500 MG TABS 1 tab po qd LEVOFLOXACIN 68945145606 No Longer Active Renzo Thornton DO Active BUSPIRONE HCL 15 MG TABS 1 tab po TID BUSPIRONE HCL 91433219358 No Longer Active Renzo Thornton DO Active BENZTROPINE MESYLATE 1 MG TABS 1 tab po qd BENZTROPINE MESYLATE 97013854574 No Longer Active Renzo Thornton DO Active ATENOLOL 25 MG TABS 1 tab po qd ATENOLOL 03969574275 No Longer Active Renzo Thornton DO Active ESCITALOPRAM OXALATE 20 MG TABS 1 tab po qd ESCITALOPRAM OXALATE 76045565674 No Longer Active Renzo Thornton DO Active ADVAIR DISKUS 250-50 MCG/DOSE AEPB 1 puff BID FLUTICASONE-SALMETEROL 31136103386 No Longer Active Renzo Thornton DO Active PREDNISONE 20 MG TAB 2 tabs daily for 3 days, 1 tab daily for 3 days, 1/2 tab daily for 2 days PREDNISONE 03422345560 No Longer Active Vishal Hui MD Active CEFDINIR 300 MG CAPS by mouth twice a day CEFDINIR 54789952341 No Longer Active Vishal Hui MD Active LANSOPRAZOLE 30 MG CPDR 1 cap po qd LANSOPRAZOLE 28505700134 No Longer Active Vishal Hui MD Active BACLOFEN 20 MG TABS 1 tab po tid BACLOFEN 73874592067 No Longer Active Vishal Hui MD Active ADVAIR DISKUS 250-50 MCG/DOSE AEPB 1 puff BID ADVAIR DISKUS 250-50 MCG/DOSE AEPB FLUTICASONE-SALMETEROL Inactive ESCITALOPRAM OXALATE 20 MG TABS 1 tab po qd ESCITALOPRAM OXALATE 20 MG TABS 530354 ESCITALOPRAM OXALATE Inactive ATENOLOL 25 MG TABS 1 tab po qd ATENOLOL 25 MG TABS 496940 ATENOLOL Inactive BENZTROPINE MESYLATE 1 MG TABS 1 tab po qd BENZTROPINE MESYLATE 1 MG TABS 959195 BENZTROPINE MESYLATE Inactive BUSPIRONE HCL 15 MG TABS 1 tab po TID BUSPIRONE HCL 15 MG TABS 772661 BUSPIRONE HCL Inactive LEVOFLOXACIN 500 MG TABS 1 tab po qd LEVOFLOXACIN 500 MG TABS 960849 LEVOFLOXACIN Inactive PREDNISONE 20 MG TABS 1 tab po qd PREDNISONE 20 MG TABS 031036 PREDNISONE Inactive MIRALAX POWD 1 capfull once daily MIRALAX POWD 729489 POLYETHYLENE GLYCOL 3350 Inactive VERAPAMIL HCL ER 180 MG CR-TABS 1 tab po bid VERAPAMIL HCL ER 180 MG CR-TABS VERAPAMIL HCL Inactive LORATADINE 10 MG TABS 1 tab po qd LORATADINE 10 MG TABS 825111 LORATADINE Inactive LYRICA 50 MG CAPS 1 tab po TID LYRICA 50 MG CAPS PREGABALIN Inactive ZALEPLON 10 MG CAPS 1 cap po every other night ZALEPLON 10 MG CAPS 079369 ZALEPLON Inactive SAPHRIS 5 MG SUBL 1 tab po qd SAPHRIS 5 MG SUBL ASENAPINE MALEATE Inactive TRAZODONE HCL 50 MG TABS 1/2 tab po qd prn for anxiety TRAZODONE HCL 50 MG TABS 794558 TRAZODONE HCL Inactive LATUDA 20 MG TABS Take one by mouth daily LATUDA 20 MG TABS LURASIDONE HCL Inactive LISINOPRIL 20 MG TABS 1 tab po qd LISINOPRIL 20 MG TABS 503983 LISINOPRIL Inactive SAPHRIS 10 MG SUBL 1 [...] twice daily BACTRIM DS 800-160 MG TAB 128288 TRIMETHOPRIM-SULFAMETHOXAZOLE Inactive MULTIVITAMINS CAPS Take one by mouth daily MULTIVITAMINS CAPS MULTIPLE VITAMIN Inactive MELATONIN 3 MG CAPS 2 po q hs MELATONIN 3 MG CAPS 772106 MELATONIN Inactive KEFLEX 500 MG ORAL CAPS 1 cap QID by mouth KEFLEX 500 MG ORAL CAPS 827366 CEPHALEXIN Inactive CLINDAMYCIN HCL 150 MG CAPS 1 four times a day CLINDAMYCIN HCL 150 MG CAPS 799829 CLINDAMYCIN HCL Inactive DIFLUCAN 150 MG TAB 1 tablet by mouth daily DIFLUCAN 150 MG TAB 846156 FLUCONAZOLE Inactive PROZAC 20 MG CAP Take one by mouth daily PROZAC 20 MG CAP 296817 FLUOXETINE HCL Inactive IBUPROFEN 600 MG TAB 1 po TID PRN IBUPROFEN 600 MG TAB 113053 IBUPROFEN Inactive VYVANSE 40 MG CAPS 1 daily, VYVANSE 40 MG CAPS LISDEXAMFETAMINE DIMESYLATE Inactive TRAZODONE HCL 100 MG TAB take 1 at bedtime TRAZODONE HCL 100 MG TAB 993213 TRAZODONE HCL Inactive AMITRIPTYLINE HCL 100 MG TAB one at hs AMITRIPTYLINE HCL 100 MG TAB 905798 AMITRIPTYLINE HCL Inactive AMLODIPINE BESYLATE 5 MG TABS 1 tablet by mouth daily AMLODIPINE BESYLATE 5 MG TABS 215581 AMLODIPINE BESYLATE Inactive LATUDA 80 MG TABS Take one by mouth daily LATUDA 80 MG TABS LURASIDONE HCL Inactive SAPHRIS 5 MG SUBL 1 po bid SAPHRIS 5 MG SUBL ASENAPINE MALEATE Inactive PREDNISONE 20 MG TAB 2 tabs daily for 4 days, 1 tab daily for 4 days, 1/2 tab daily for 4 days PREDNISONE 20 MG TAB 171467 PREDNISONE Inactive AMBIEN 5 MG ORAL TABS 1 tab at bedtime AMBIEN 5 MG ORAL TABS 985192 ZOLPIDEM TARTRATE Inactive PROZAC 20 MG ORAL CAPS 1 tab daily PROZAC 20 MG ORAL CAPS 340013 FLUOXETINE HCL Inactive ABILIFY 15 MG ORAL TABS 1 tab daily ABILIFY 15 MG ORAL TABS 139049 ARIPIPRAZOLE Inactive METOPROLOL TARTRATE 50 MG TAB 1 po bid METOPROLOL TARTRATE 50 MG TAB 920458 METOPROLOL TARTRATE Inactive TRAMADOL HCL 50 MG TABS 1-2 po TID PRN Pain TRAMADOL HCL 50 MG TABS 691565 TRAMADOL HCL Inactive PIROXICAM 20 MG CAPS 1 cap po qd PRN Pain PIROXICAM 20 MG CAPS 998964 PIROXICAM Inactive MINIPRESS 2 MG CAPS 4 cap po at night MINIPRESS 2 MG CAPS 620853 PRAZOSIN HCL Inactive MIRALAX PACK 1 po qd PRN Constipation MIRALAX PACK 471700 POLYETHYLENE GLYCOL 3350 Inactive METOPROLOL TARTRATE 25 MG ORAL TABS 1/2 tablet twice daily for heart rate and blood pressure METOPROLOL TARTRATE 25 MG ORAL TABS 035161 METOPROLOL TARTRATE Inactive VALIUM 5 MG TAB Take 1-2 tablets daily VALIUM 5 MG TAB 294835 DIAZEPAM Inactive FLAGYL 500 MG TAB 1 tablet by mouth bid FLAGYL 500 MG TAB 243542 METRONIDAZOLE Inactive DICLOFENAC POTASSIUM TABS Take 1 tablet twice a day (pt. is not sure of the dose.) DICLOFENAC POTASSIUM TABS DICLOFENAC POTASSIUM TABS Inactive ZITHROMAX Z-EARNEST 250 MG TABS 2 today and then 1 daily for 4 days ZITHROMAX Z-EARNEST 250 MG TABS 3573933 AZITHROMYCIN Inactive PREDNISONE 20 MG TABS 2 daily for 5 days then 1 daily for 5 days PREDNISONE 20 MG TABS 452349 PREDNISONE Inactive PROAIR HFA 108 (90 BASE) MCG/ACT AERS 2 puffs four times a day as needed 2015 PROAIR HFA 108 (90 BASE) MCG/ACT AERS ALBUTEROL SULFATE Inactive HYDROCODONE-ACETAMINOPHEN 5-325 MG TABS 1 to 2 four times a day as needed for pain use until can be seen by specialist HYDROCODONE- ACETAMINOPHEN 5-325 MG TABS 375052 HYDROCODONE-ACETAMINOPHEN Inactive CEFDINIR 300 MG CAPS by mouth twice a day CEFDINIR 300 MG CAPS 406106 CEFDINIR Inactive PREDNISONE 20 MG TAB 2 tabs daily for 3 days, 1 tab daily for 3 days, 1/2 tab daily for 2 days PREDNISONE 20 MG TAB 920657 PREDNISONE Inactive BACTRIM DS 800-160 MG TABS 1 po BID x 7 days BACTRIM DS 800-160 MG TABS 854766 SULFAMETHOXAZOLE-TRIMETHOPRIM Inactive DIFLUCAN 150 MG TABS 1 pill every other day x 2 doses DIFLUCAN 150 MG TABS 218214 FLUCONAZOLE Inactive BACTRIM DS 800-160 MG TABS 1 pill by mouth twice daily BACTRIM DS 800-160 MG TABS 409287 SULFAMETHOXAZOLE-TRIMETHOPRIM Inactive KEFLEX 500 MG CAP 1 po TID x 10 days KEFLEX 500 MG CAP 559266 CEPHALEXIN Inactive Advance Directives Directive Description Start [...] % 11.6-14.8 platelet count 394 10^3/MM^3 10*3/mm3 326-388 8088/01/11 leukocyte count, blood 13.8 10^3/MM^3 10*3/mm3 4.6-10.2 [...] Panel - Chemistry sodium, serum 139 mmol/L 036-590 5475/12/03 carbon dioxide, venous blood 28.5 mmol/L 21.0-32.0 [...] 5.5 % 4.3-6.0 cholesterol, serum 159 mg/dL 028-704 4055/12/03 triglyceride, serum, fasting 118 mg/dL 30-200 HDL [...] Panel - Chemistry sodium, serum 139 mmol/L 367-197 7266/12/22 carbon dioxide, venous blood 26.8 mmol/L 21.0-32.0 potassium, serum 4.2 mmol/L 3.5-5.2 chloride, serum 103 mmol/L 98-107 blood glucose 115 mg/dL 65-110 urea nitrogen, blood 20 mg/dL 7-18 creatinine, serum 0.90 mg/dL 0.55-1.30 alanine aminotransferase (SGPT), serum 38 U/L aspartate aminotransferase (SGOT), serum 19 U/L 15-37 calcium, serum 8.6 mg/dL 8.5-10.1 bilirubin, serum, total 0.30 mg/dL 0.00-1.00 sodium, serum 139 mmol/L 214-449 1215/01/11 carbon dioxide, venous blood 26.6 mmol/L 21.0-32.0 potassium, serum 4.1 mmol/L 3.5-5.2 chloride, serum 100 mmol/L 98-107 blood glucose 86 mg/dL 65-110 urea nitrogen, blood 16 mg/dL 7-18 creatinine, serum 1.00 mg/dL 0.55-1.30 alanine aminotransferase (SGPT), serum 48 U/L aspartate aminotransferase (SGOT), serum 17 U/L 15-37 calcium, serum 9.1 mg/dL 8.5-10.1 bilirubin, serum, total 0.40 mg/dL 0.00-1.00 sodium, serum 142 mmol/L 055-683 4624/06/08 carbon dioxide, venous blood 27.6 mmol/L 21.0-32.0 potassium, serum 4.0 mmol/L 3.5-5.2 chloride, serum 105 mmol/L 98-107 blood glucose 95 mg/dL 65-110 urea nitrogen, blood 8 mg/dL 7-18 creatinine, serum 0.75 mg/dL 0.55-1.30 alanine aminotransferase (SGPT), serum 49 U/L 12-78 aspartate aminotransferase (SGOT), serum 28 U/L 15-37 calcium, serum 9.4 mg/dL 8.5-10.1 bilirubin, serum, total 0.30 mg/dL 0.00-1.00 sodium, serum 140 mmol/L 079-633 5947/08/08 carbon dioxide, venous blood 33.7 mmol/L 21.0-32.0 [...] Rate - Chemistry sodium, serum 139 mmol/L 530-788 8268/12/11 carbon dioxide, venous blood 25.4 mmol/L 21.0-32.0 [...] mg/dL Encounters Code Encounter Date Provider Facility CPT-02269 Level 3 Est. Patient 18:18:53 CDT Neeraj Collins MD [facility] CPT-31400 Level 3 Est. Patient 15:50:44 CDT Vishal Hui MD [facility] CPT-81468 Level 3 Est. Patient 11:36:17 CDT Ahmet Carbajal MD [facility] CPT-76710 Level 3 Est. Patient 13:29:16 CDT Vishal Hui MD [facility] CPT-69654 Level 3 Est. Patient 14:27:52 CDT Neeraj Collins MD [facility] CPT-88724 Level 3 Est. Patient 08:56:03 CDT Luigi Martínez [facility] CPT-49839 Level 4 Est. Patient 12:11:48 CDT Fabiola Johnson [facility] CPT-99916 Level 3 New Patient 16:53:37 CDT Albert Caldera MD [facility] CPT-79434 Level 3 Est. Patient 11:25:49 CDT Renzo Thornton DO [facility] CPT-41493 Level 3 Est. Patient 15:22:01 CDT Ahmet Carbajal MD [facility] CPT-83875 Level 4 Est. Patient 09:00:51 [employer] Vishal Hui MD [facility] CPT-57442 Level 3 Est. Patient 11:37:33 [employer] Vishal Hui MD [facility] CPT-26987 Level 3 Est. Patient 08:41:09 [employer] Vishal Hui MD [facility] CPT-39780 Level 4 Est. Patient 10:19:35 [employer] Vishal Hui MD [facility] CPT-26830 Level 3 Est. Patient 13:35:45 CDT Vishal Hui MD [facility] CPT-20005 Level 4 Est. Patient 10:08:37 CDT Vishal Hui MD [facility] CPT-17634 Level 3 Est. Patient 11:22:10 CDT Vishal Hui MD [facility] CPT-55153 Level 3 Est. Patient 11:03:32 CDT Sahara Rodriguez MD [facility]-60553 Level 3 Est. Patient 09:41:35 CDT Vishal Hui MD [facility]-71519 Level 3 Est. Patient 12:00:41 CDT Neeraj Collins MD [facility] CPT-13206 Level 3 Est. Patient 09:16:24 CDT Vishal Hui MD [facility] CPT-70944 Level 4 Est. Patient 13:59:09 CDT Neeraj Collins MD [facility]-65772 Level 3 Est. Patient 15:19:43 CDT Renzo Thornton DO [facility] CPT-43819 Level 3 Est. Patient 18:10:26 CDT Sahara Rodriguez MD [facility] CPT-34737 Level 3 Est. Patient 14:49:50 CDT Vishal Hui MD [facility]-31489 Level 4 Est. Patient 18:41:46 CDT Neeraj Collins MD [facility] CPT-34218 Level 4 Est. Patient 09:18:38 [employer] Vishal Hui MD [facility] CPT-92229 Level 3 Est. Patient 14:43:55 [employer] Vishal Hui MD [facility] CPT-93508 Level 3 Est. Patient 15:26:33 [employer]ER Sahara Rodriguez MD [facility]-91074 Level 3 Est. Patient 10:32:14 [employer] Vishal Hui MD [facility] CPT-71552 Level 3 Est. Patient 15:12:52 [employer] Vishal Hui MD [facility] CPT-11548 Level 4 Est. Patient 09:19:27 CDT Vishal Hui MD [facility] CPT-99026 Level 3 Est. Patient 15:53:00 CDT Renzo Thornton [facility] CPT-84375 Level 3 Est. Patient 15:50:30 CDT Renzo Thornton [facility] CPT-59814 Level 3 Est. Patient 16:55:24 CDT Vishal Hui MD [facility] Procedures Code Procedure Name Date Entry Date Standard Description CPT-02293 Abx/Therapy Injection 08:47:09 CDT CPT-19740 Abx/Therapy Injection 13:29:56 CDT CPT-08850 Abx/Therapy Injection 08:36:16 CDT CPT-67837 Wet Mount - LAB USE ONLY 17:44:58 CDT CPT-54029 UA w micro - LAB USE ONLY 17:44:58 CDT CPT-87926 CMP - LAB USE ONLY 17:44:58 CDT CPT-27688 Venipuncture Draw Fee 17:44:58 CDT CPT-23769 Cervical Min 4V - XRAY USE ONLY 09:01:40 CDT CPT-61390 Chest 2V Frontal and Lat - XRAY USE ONLY 11:06:31 CDT CPT-08704 EKG Trac and Interp - XRAY USE ONLY 11:31:43 CDT 08/26 CPT-J3420 Vitamin B12 1000mcg (Cyanocobalamin) 08:10:26 [employer]ER 04/12 CPT-97525 Abx/Therapy Injection 08:10:26 [employer] CPT-G0438 Initial Annual Wellness Exam 19:01:01 [employer] CPT-J3420 Vitamin B12 1000mcg (Cyanocobalamin) 16:57:46 CDT 08/14 CPT-20268 Recombivax HB Injection Suspension 5 MCG/0.5ML 08:37:50 [employer] CPT-81535 Immunization Single Admin 08:37:50 [employer] CPT-J3420 Vitamin B12 1000mcg (Cyanocobalamin) 08:32:16 [employer]ER 03/11 CPT-60943 Abx/Therapy Injection 08:32:16 [employer]ER CPT-25510 Chest 2V Frontal and Lat 11:46:38 [employer] CPT-55640 Venipuncture Draw Fee 09:12:45 [employer] CPT-J3420 Vitamin B12 1000mcg (Cyanocobalamin) 08:50:15 [employer]ER 02/08 CPT-22500 Abx/Therapy Injection 08:50:15 [employer]ER CPT-Cryo Cryotherapy 10:19:35 [employer]ER CPT-000 Give Appropriate Flu Vaccine 09:22:16 CDT CPT-J3420 Vitamin B12 1000mcg (Cyanocobalamin) 19:08:57 CDT 01/11 CPT-07766 Abx/Therapy Injection 19:08:57 CDT CPT-J3420 Vitamin B12 1000mcg (Cyanocobalamin) 08:19:08 CDT 12/11 CPT-32454 Abx/Therapy Injection 08:19:08 CDT CPT-J3420 Vitamin B12 1000mcg (Cyanocobalamin) 14:48:00 CDT 11/09 CPT-86797 Abx/Therapy Injection 14:47:59 CDT CPT-J3420 Vitamin B12 1000mcg (Cyanocobalamin) 08:34:04 CDT 10/09 CPT-86975 Abx/Therapy Injection 08:34:04 CDT CPT-J3420 Vitamin B12 1000mcg (Cyanocobalamin) 09:18:52 CDT 09/11 CPT-35720 Abx/Therapy Injection 09:18:52 CDT CPT-J3420 Vitamin B12 1000mcg (Cyanocobalamin) 08:35:44 CDT 09/04 CPT-45732 Abx/Therapy Injection 08:35:44 CDT CPT-72834 Immunization Single Admin 11:07:16 CDT CPT-28200 Hepatitis B adult IM 11:07:16 CDT CPT-J3420 Vitamin B12 1000mcg (Cyanocobalamin) 11:00:49 CDT 08/28 CPT-J1040 Depo Medrol 80 mg (Methyl Prednisolone Acetate) 11:00: 49 CDT CPT-80685 Abx/Therapy Injection 11:00:49 CDT CPT-J1040 Depo Medrol 80 mg (Methyl Prednisolone Acetate) 09:16: 23 CDT CPT-J3420 Vitamin B12 1000mcg (Cyanocobalamin) 08:27:05 CDT 08/20 CPT-34650 Abx/Therapy Injection 08:27:05 CDT CPT-22932 Recombivax HB Injection Suspension 5 MCG/0.5ML 10:00:41 CDT CPT-25828 Administration single or combination vaccine inc oral 10 :00:41 CDT CPT-00369 Sono transvag pelvis non OB uterus ovaries cervix 16:36: 57 CDT CPT-21316 LS spine comp w obliq 09:50:55 [employer] CPT-90531 Abd compl w upright 09:50:55 [employer] CPT-J1100 Decadron 4mg (Dexamethasone) 15:51:24 [employer] CPT-J1030 Depo Medrol 40 mg (Methyl Prednisolone Acetate) 15:51: 24 [employer] CPT-25092 Abx/Therapy Injection 15:51:24 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
--- OUTSIDE RECORDS SUMMARY | 2016-11-05 00:18 | XMS REPORT | Clinical Summary ---
Author Author Admin, QIE Organization [employer] Address Unknown Phone Unavailable Allergies, Adverse Reactions, [...] TAB 1 tablet by mouth daily FLUCONAZOLE [id number] No Longer Active Vishal Hui MD Active TIZANIDINE HCL 4 MG TABS 1 po q6hr PRN Muscle Spasm/Back Pain TIZANIDINE HCL 42425265527 Active Vishal Hui MD Active CLINDAMYCIN HCL 150 MG CAPS 1 four times a day CLINDAMYCIN HCL 25144741512 No Longer Active Neeraj Collins MD Active KEFLEX 500 MG ORAL CAPS 1 cap QID by mouth CEPHALEXIN 60611508910 No Longer Active Neeraj Collins MD Active DIFLUCAN 150 MG TABS 1 pill every other day x 2 doses FLUCONAZOLE 70601762626 No Longer Active Sahara Rodriguez MD PhD Active MELATONIN 3 MG CAPS 2 po q hs MELATONIN 05528448684 No Longer Active Sahara Rodriguez MD PhD Active MULTIVITAMINS CAPS Take one by mouth daily MULTIPLE VITAMIN 81846808107 No Longer Active Sahara Rodriguez MD PhD Active BACTRIM DS 800-160 MG TAB 1 tab by mouth twice daily TRIMETHOPRIM-SULFAMETHOXAZOLE 93456294882 No Longer Active Sahara Rodriguez MD PhD Active [facility] PROBIOTIC ORAL CHEW 2 daily po PROBIOTIC PRODUCT 87854163647 No Longer Active Sahara Rodriguez MD PhD Active IBUPROFEN 600 MG TAB 1 po TID PRN IBUPROFEN 55083778379 Active Luigi Martínez OPERATIONS DISPATCHER Active BACTRIM DS 800-160 MG TABS 1 po BID x 7 days SULFAMETHOXAZOLE-TRIMETHOPRIM 71215471291 No Longer Active Vishal Hui MD Active CHANTIX STARTING MONTH EARNEST 0.5 MG X 11 & 1 MG X 42 TABS 0.5mg daily for 3 days , then 0.5mg BID for 4 days, then 1mg BID VARENICLINE TARTRATE 44257098057 No Longer Active TAMARA Gray Active METOPROLOL TARTRATE 50 MG TAB 1 po bid METOPROLOL TARTRATE 56669941450 Active Vishal Hui MD Active TRAZODONE HCL 100 MG TAB take 1 at bedtime TRAZODONE HCL 48290850412 Active Vishal Hui MD Active AMLODIPINE BESYLATE 5 MG TABS 1 tablet by mouth daily AMLODIPINE BESYLATE 53453198435 Active Vishal Hui MD Active VERAPAMIL HCL CR 120 MG TAB CR 1 po bid VERAPAMIL HCL 90249623326 No Longer Active Vishal Hui MD Active METOPROLOL SUCCINATE 50 MG TB24 1 tablet by mouth daily METOPROLOL SUCCINATE 44604585953 No Longer Active Vishal Hui MD Active TRAMADOL HCL 50 MG TABS 1-2 po TID PRN Pain TRAMADOL HCL 65993743875 Active Ahmet Carbajal MD Active SAPHRIS 5 MG SUBL 1 po bid ASENAPINE MALEATE 34159208690 Active Vishal Hui MD Active SAPHRIS 10 MG SUBL 1 tab po bid ASENAPINE MALEATE 66439133391 No Longer Active Vishal Hui MD Active LISINOPRIL 20 MG TABS 1 tab po qd LISINOPRIL 66934755785 No Longer Active Vishal Hui MD Active BENADRYL 25 MG CAP 2 po tid prn anxiety DIPHENHYDRAMINE HCL 73327978371 Active Vishal Hui MD Active LATUDA 80 MG TABS Take one by mouth daily LURASIDONE HCL 81940305016 Active Vishal Hui MD Active LATUDA 20 MG TABS Take one by mouth daily LURASIDONE HCL 66268982353 No Longer Active Vishal Hui MD Active TRAZODONE HCL 50 MG TABS 1/2 tab po qd prn for anxiety TRAZODONE HCL 64533527694 No Longer Active Vishal Hui MD Active PIROXICAM 20 MG CAPS 1 cap po qd PRN Pain PIROXICAM 54180396848 Active Vishal Hui MD Active OMEPRAZOLE 20 MG TBEC 1 po q a.m. 30min prior to first food intake OMEPRAZOLE 85214097662 Active Vishal Hui MD Active RANITIDINE HCL 150 MG CAPS 1 twice a day RANITIDINE HCL 56030390069 Active Vishal Hui MD Active PROZAC 20 MG CAP Take one by mouth daily FLUOXETINE HCL 84600516747 Active Vishal Hui MD Active LINZESS 290 MCG CAPS Take one by mouth daily LINACLOTIDE 52580870651 Active Vishal Hui MD Active SAPHRIS 5 MG SUBL 1 tab po qd ASENAPINE MALEATE 99718987539 No Longer Active Vishal Hui MD Active ZALEPLON 10 MG CAPS 1 cap po every other night ZALEPLON 26916079009 No Longer Active Vishal Hui MD Active LYRICA 50 MG CAPS 1 tab po TID PREGABALIN 89207843119 No Longer Active Vishal Hui MD Active LORATADINE 10 MG TABS 1 tab po qd LORATADINE 48835364257 No Longer Active Vishal Hui MD Active VERAPAMIL HCL ER 180 MG CR-TABS 1 tab po bid VERAPAMIL HCL 90901375323 No Longer Active Vishal Hui MD Active MIRALAX POWD 1 capfull once daily POLYETHYLENE GLYCOL 3350 61154588934 No Longer Active Vishal Hui MD Active PREDNISONE 20 MG TABS 1 tab po qd PREDNISONE 74225897425 No Longer Active Renzo Thornton DO Active LEVOFLOXACIN 500 MG TABS 1 tab po qd LEVOFLOXACIN 00142045902 No Longer Active Renzo Thornton DO Active BUSPIRONE HCL 15 MG TABS 1 tab po TID BUSPIRONE HCL 50042825786 No Longer Active Renzo Thornton DO Active BENZTROPINE MESYLATE 1 MG TABS 1 tab po qd BENZTROPINE MESYLATE 64708799717 No Longer Active Renzo Thornton DO Active ATENOLOL 25 MG TABS 1 tab po qd ATENOLOL 52083545818 No Longer Active Renzo Thornton DO Active ESCITALOPRAM OXALATE 20 MG TABS 1 tab po qd ESCITALOPRAM OXALATE 34093382937 No Longer Active Renzo Thornton DO Active ADVAIR DISKUS 250-50 MCG/DOSE AEPB 1 puff BID FLUTICASONE-SALMETEROL 51354696134 No Longer Active Renzo Thornton DO Active PREDNISONE 20 MG TAB 2 tabs daily for 3 days, 1 tab daily for 3 days, 1/2 tab daily for 2 days PREDNISONE 44394578474 No Longer Active Vishal Hui MD Active CEFDINIR 300 MG CAPS by mouth twice a day CEFDINIR 22522998477 No Longer Active Vishal Hui MD Active LANSOPRAZOLE 30 MG CPDR 1 cap po qd LANSOPRAZOLE 43204195932 No Longer Active Vishal Hui MD Active TOPAMAX 25 MG TABS 1 tab po bid TOPIRAMATE 64739271969 Active Vishal Hui MD Active MINIPRESS 2 MG CAPS 1 cap po at night PRAZOSIN HCL 67223565274 Active Vishal Hui MD Active BACLOFEN 20 MG TABS 1 tab po tid BACLOFEN 86171949248 No Longer Active Vishal Hui MD Active ADVAIR DISKUS 250-50 MCG/DOSE AEPB 1 puff BID ADVAIR DISKUS 250-50 MCG/DOSE AEPB FLUTICASONE-SALMETEROL Inactive ESCITALOPRAM OXALATE 20 MG TABS 1 tab po qd ESCITALOPRAM OXALATE 20 MG TABS 451557 ESCITALOPRAM OXALATE Inactive ATENOLOL 25 MG TABS 1 tab po qd ATENOLOL 25 MG TABS 936939 ATENOLOL Inactive BENZTROPINE MESYLATE 1 MG TABS 1 tab po qd BENZTROPINE MESYLATE 1 MG TABS 932047 BENZTROPINE MESYLATE Inactive BUSPIRONE HCL 15 MG TABS 1 tab po TID BUSPIRONE HCL 15 MG TABS 948640 BUSPIRONE HCL Inactive LEVOFLOXACIN 500 MG TABS 1 tab po qd LEVOFLOXACIN 500 MG TABS 355184 LEVOFLOXACIN Inactive PREDNISONE 20 MG TABS 1 tab po qd PREDNISONE 20 MG TABS 257653 PREDNISONE Inactive MIRALAX POWD 1 capfull once daily MIRALAX POWD 427023 POLYETHYLENE GLYCOL 3350 Inactive VERAPAMIL HCL ER 180 MG CR-TABS 1 tab po bid VERAPAMIL HCL ER 180 MG CR-TABS VERAPAMIL HCL Inactive LORATADINE 10 MG TABS 1 tab po qd LORATADINE 10 MG TABS 678467 LORATADINE Inactive LYRICA 50 MG CAPS 1 tab po TID LYRICA 50 MG CAPS PREGABALIN Inactive ZALEPLON 10 MG CAPS 1 cap po every other night ZALEPLON 10 MG CAPS 880276 ZALEPLON Inactive SAPHRIS 5 MG SUBL 1 tab po qd SAPHRIS 5 MG SUBL ASENAPINE MALEATE Inactive TRAZODONE HCL 50 MG TABS 1/2 tab po qd prn for anxiety TRAZODONE HCL 50 MG TABS 339525 TRAZODONE HCL Inactive LATUDA 20 MG TABS Take one by mouth daily LATUDA 20 MG TABS LURASIDONE HCL Inactive LISINOPRIL 20 MG TABS 1 tab po qd LISINOPRIL 20 MG TABS 867409 LISINOPRIL Inactive SAPHRIS 10 MG SUBL 1 [...] po q hs MELATONIN 3 MG CAPS 362107 MELATONIN Inactive KEFLEX 500 MG ORAL CAPS 1 cap QID by mouth KEFLEX 500 MG ORAL CAPS 838359 CEPHALEXIN Inactive CLINDAMYCIN HCL 150 MG CAPS 1 four times a day CLINDAMYCIN HCL 150 MG CAPS 308815 CLINDAMYCIN HCL Inactive DIFLUCAN 150 MG TAB 1 tablet by mouth daily DIFLUCAN 150 MG TAB 19751126 FLUCONAZOLE Inactive CEFDINIR 300 MG CAPS by mouth twice a day CEFDINIR 300 MG CAPS 689167 CEFDINIR Inactive PREDNISONE 20 MG TAB 2 tabs daily for 3 days, 1 tab daily for 3 days, 1/2 tab daily for 2 days PREDNISONE 20 MG TAB 246641 PREDNISONE Inactive BACTRIM DS 800-160 MG TABS [...] outside labs entered on flowsheet - Chemistry potassium, serum 4.0 mmol/L sodium, serum 139 mmol/L alkaline phosphatase, serum 119 U/L alanine aminotransferase (SGPT), serum 38 U/L aspartate aminotransferase (SGOT), serum 18 U/L creatinine, serum 0.89 mg/dL blood glucose 86 mg/dL Chart Maintenance: outside labs entered on flowsheet - Hematology platelet count 364 10*3/mm3 hemoglobin, blood 13.2 g/dL leukocyte count, blood 8.9 10*3/mm3 Lab Report: CBC, Comp. Metabolic Panel, Free Thyroxine (L), Thyroid Stim ... - Chemistry sodium, serum 140 mmol/L 677-827 5879/05/28 potassium, serum 4.2 mmol/L 3.5-5.2 chloride, serum [...] Panel - Chemistry sodium, serum 141 mmol/L [phone] potassium, serum 4.3 mmol/L 3.5-5.2 chloride, serum [...] Panel - Chemistry sodium, serum 139 mmol/L 686-423 6173/12/31 potassium, serum 4.8 mmol/L 3.5-5.2 chloride, serum 106 mmol/L 98-107 carbon dioxide, venous blood 24.3 mmol/L 21.0-32.0 blood glucose 90 mg/dL 65-110 urea nitrogen, blood 16 mg/dL 7-18 creatinine, serum 1.00 mg/dL 0.60-1.30 alanine aminotransferase (SGPT), serum 41 U/L 12-78 aspartate aminotransferase (SGOT), serum 17 U/L 15-37 calcium, serum 8.6 mg/dL 8.5-10.1 bilirubin, serum, total 0.30 mg/dL 0.00-1.00 cholesterol, serum 108 mg/dL 924-808 1690/12/31 triglyceride, serum, fasting 120 mg/dL 30-200 HDL cholesterol, serum 28 mg/dL 32-96 LDL cholesterol, serum 56 mg/dL 0-130 Lab Report: HGBA1C - Chemistry hemoglobin A1C, blood, as % of total hemoglobin 5.3 % 4.3-6.0 Lab Report: MICROALBUMIN - Chemistry albumin/creatinine ratio, urine < 30 mg/g mg/g{creat} 0-29 Lab Report: MICROALBUMIN - Lab microalbumin, urine 10 0-19 Lab Report: UADIP W/MICRO, AUTO, [facility] [place] - Chemistry human chorionic gonadotropin, urine, qualitative (urine test) Negative Negative RBC, urine, dipstick Negative Negative protein, total urine random Negative mg/dL Negative Lab Report: UADIP W/MICRO, AUTO, [facility] [place] - Urinalysis glucose, urine, semiquantitative Negative Negative urobilinogen, urine, semiquantitative (dipstick) 0.2 Normal leukocyte esterase, urine, by dipstick Negative Negative specific gravity, urine 1.025 1.000-1.030 pH, urine, semiquantitative 7.0 5.0-8.5 ketones, urine, by test strip Negative Negative bilirubin, urine Negative Negative appearance, urine Clear Clear urine color Yellow Colorless;Lightyellow;Straw;Yellow nitrite, urine, semiquantitative Negative Negative Lab Report: Varicella-Zoater Inga IgG,IgM/98335, HEP Be Antibody/556, RUB ... - Serology rubella antibody, serum, IgG 2.88 Encounters Code Encounter Date Provider Facility [id number] Level 3 Est. Patient 09:41:35 CDT Vishal Hui MD [facility]87825 Level 3 Est. Patient 12:00:41 CDT Neeraj Collins MD [facility]97725 Level 3 Est. Patient 09:16:24 CDT Visahl Hui MD [facility]77626 Level 4 Est. Patient 13:59:09 CDT Neeraj Collins MD [facility]33516 Level 3 Est. Patient 15:19:43 CDT Renzo Thornton DO [facility]-61290 Level 3 Est. Patient 18:10:26 CDT Sahara Rodriguez MD [facility]38493 Level 3 Est. Patient 14:49:50 CDT Vishal Hui MD [facility]40308 Level 4 Est. Patient 18:41:46 CDT Neeraj Collins MD [facility]73210 Level 4 Est. 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43924 Level 3 Est. Patient 14:43:55 BORING MACHINE OPERATOR PRODUCTION Vishal Hui MD [facility]70861 Level 3 Est. Patient 15:26:33 BORING MACHINE OPERATOR PRODUCTION Sahara Rodriguez MD PhD [place] 286003 Level 3 Est. Patient 10:32:14 BORING MACHINE OPERATOR PRODUCTION Vishal Hui MD [facility]43622 Level 3 Est. Patient 15:12:52 BORING MACHINE OPERATOR PRODUCTION Vishal Hui MD [facility]-50315 Level 4 Est. Patient 09:19:27 CDT Vishal Hui MD [facility] CPT-04857 Level 3 Est. Patient 15:53:00 CDT Renzo Thornton [facility] CPT-62279 Level 3 Est. Patient 15:50:30 CDT Renzo Thornton [facility] CPT-94027 Level 3 Est. Patient 16:55:24 CDT Vishal Hui MD [facility] Procedures Code Procedure Name Date Entry Date Standard Description CPT-J3420 Vitamin B12 1000mcg (Cyanocobalamin) 08:34:04 CDT 10/09 CPT-30337 Abx/Therapy Injection 08:34:04 CDT CPT-J3420 Vitamin B12 1000mcg (Cyanocobalamin) 09:18:52 CDT 09/11 CPT-75493 Abx/Therapy Injection 09:18:52 CDT CPT-J3420 Vitamin B12 1000mcg (Cyanocobalamin) 08:35:44 CDT 09/04 CPT-80111 Abx/Therapy Injection 08:35:44 CDT CPT-69677 Immunization Single Admin 11:07:16 CDT CPT-81022 Hepatitis B adult IM 11:07:16 CDT CPT-J3420 Vitamin B12 1000mcg (Cyanocobalamin) 11:00:49 CDT 08/28 CPT-J1040 Depo Medrol 80 mg (Methyl Prednisolone Acetate) 11:00: 49 CDT CPT-35774 Abx/Therapy Injection 11:00:49 CDT CPT-J1040 Depo Medrol 80 mg (Methyl Prednisolone Acetate) 09:16: 23 CDT CPT-J3420 Vitamin B12 1000mcg (Cyanocobalamin) 08:27:05 CDT 08/20 CPT-05467 Abx/Therapy Injection 08:27:05 CDT CPT-96667 Recombivax HB Injection Suspension 5 MCG/0.5ML 10:00:41 CDT CPT-21056 Administration single or combination vaccine inc oral 10 :00:41 CDT CPT-61563 Sono transvag pelvis non OB uterus ovaries cervix 16:36: 57 CDT CPT-19017 LS spine comp w obliq 09:50:55 BORING MACHINE OPERATOR PRODUCTION CPT-49677 Abd compl w upright 09:50:55 BORING MACHINE OPERATOR PRODUCTION CPT-J1100 Decadron 4mg (Dexamethasone) 15:51:24 BORING MACHINE OPERATOR PRODUCTION CPT-J1030 Depo Medrol 40 mg (Methyl Prednisolone Acetate) 15:51: 24 BORING MACHINE OPERATOR PRODUCTION CPT-04979 Abx/Therapy Injection 15:51:24 BORING MACHINE OPERATOR PRODUCTION CPT-J1100 Decadron 4mg (Dexamethasone) 15:26:33 BORING MACHINE OPERATOR PRODUCTION CPT-J1030 Depo Medrol 40 mg (Methyl Prednisolone Acetate) 15:26: 33 BORING MACHINE OPERATOR PRODUCTION CPT-33502 Sono retroperitoneal complete kidneys and bladder 17:15: 30 CDT CPT-52130 Abd compl w upright 16:09:25 CDT CPT-J1100 Decadron 8mg (Dexamethasone) 17:07:57 CDT CPT-84627 Abx/Therapy Injection 17:07:57 CDT CPT-J1100 Decadron 8mg (Dexamethasone) 16:55:24 CDT CPT-07464 Chest 2V Frontal and Lat 16:32:44 CDT
--- OUTSIDE RECORDS SUMMARY | 2016-11-05 00:18 | XMS REPORT ---
Author Author [facility] Medical Staff Organization [facility] Address [address] [place], [place] [id number] Phone [phone] Summary purpose TRANSITION OF CARE AUTO GENERATION [...] Date Performed Performing Physician [id number] CPT-4 ALS1-EMERGENCY 09-26-2015 MERT KELLY [id number] CPT-4 GROUND MILEAGE 09-26-2015 MERT KELLY Functional status No functional or cognitive status [...]
--- OUTSIDE RECORDS SUMMARY | 2016-11-05 00:21 | XMS REPORT | Clinical Summary ---
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 FLUTICASONE PROPIONATE HFA 28724946388 Active Renzo Thornton DO Active TROPICAMIDE 0.5 % OPHTH SOLN 1 drop PRN eye spasms TROPICAMIDE 13324441380 Active Samantha Stephan RMA Active RISPERDAL 4 MG ORAL TABS 1 tab at bedtime RISPERIDONE 11802342548 Active Samantha Stephan RMA Active LEVAQUIN 500 MG TABS 1 daily for infection LEVOFLOXACIN 95398678875 Active Suzan Boo APRN Active TESSALON PERLES 100 MG CAPS 1 three times a day as needed for cough BENZONATATE 87797606747 Active Suzan Boo APRN Active ZOFRAN 4 MG TABS 1 po q6hr PRN Nausea ONDANSETRON HCL No Longer Active Suzan Boo APRN Active FLUTICASONE PROPIONATE 50 MCG/ACT SUSP 2 sprays each nostril daily before bed. FLUTICASONE PROPIONATE 30011239235 No Longer Active Suzan Boo APRN Active ASPIRIN 325 MG ORAL TABS 1 tab q.d ASPIRIN 29584322516 No Longer Active Suzan Boo APRN Active HALOPERIDOL 10 MG ORAL TABS 1 tab q.d HALOPERIDOL 33332384640 No Longer Active Suzan Boo APRN Active GUAIFENESIN-CODEINE 100-10 MG/5ML SYRP 5ml every 4 to 6 hours as needed for cough GUAIFENESIN-CODEINE 44572053452 No Longer Active Suzan Boo APRN Active ZITHROMAX Z-EARNEST 250 MG TABS 2 today and then 1 daily for 4 days AZITHROMYCIN 26209469145 No Longer Active Suzan Boo APRN Active PREDNISONE 10 MG TABS 2 daily for 5 days then 1 daily for 5 days PREDNISONE 58727788741 Active Suzan Boo APRN Active CLONAZEPAM 1 MG ORAL TABS 1 twice a day and an additional 1 tablet every other day as needed for pseudoseizures or anxiety CLONAZEPAM 91900056573 Active Ahmet Carbajal MD Active HYDROCODONE-ACETAMINOPHEN 5-325 MG ORAL TABS 1 tab two times a day HYDROCODONE-ACETAMINOPHEN 69367395099 No Longer Active Ahmet Carbajal MD Active LAMICTAL 100 MG ORAL TABS 1 tab 2 times qd. LAMOTRIGINE 65853297068 Active Ahmet Carbajal MD Active PREDNISONE 20 MG TABS 2 daily for 5 days then 1 daily for 5 days PREDNISONE 36669854852 No Longer Active Ahmet Carbajal MD Active FLUTICASONE PROPIONATE 50 MCG/ACT SUSP 1 to 2 sprays each nostril daily for allergies FLUTICASONE PROPIONATE 56800602292 Active Tila Nicolas Active BENADRYL 25 MG CAP 4 po at bedtime for insomnia DIPHENHYDRAMINE HCL 02423280081 No Longer Active Ahmet Carbajal MD Active ADVAIR DISKUS 250-50 MCG/DOSE INH AEPB 1 puff twice a day for asthma FLUTICASONE-SALMETEROL 53930795999 No Longer Active Ahmet Carbajal MD Active KLONOPIN 1 MG ORAL TABS 1 tab po TID CLONAZEPAM 42822986136 No Longer Active Ahmet Carbajal MD Active ABILIFY MAINTENA 400 MG IM SUSR 400mg injection every 26 days ARIPIPRAZOLE 64263122081 No Longer Active Ahmet Carbajal MD Active TRAMADOL HCL 50 MG TABS 1/2-1 tab TID PRN TRAMADOL HCL 90996007756 No Longer Active Ahmet Carbajal MD Active BACTRIM DS 800-160 MG TABS 1 twice a day SULFAMETHOXAZOLE- TRIMETHOPRIM 12724652403 No Longer Active Ahmet Carbajal MD Active PROAIR HFA 108 (90 BASE) MCG/ACT AERS 2 puffs four times a day as needed 2015 ALBUTEROL SULFATE 10073451858 Active Ahmet Carbajal MD Active EQ NICOTINE 21 MG/24HR TRANS PT24 Apply daily to stop smoking NICOTINE 47296895257 Active Ahmet Carbajal MD Active MONISTAT 7 COMBO PACK WOODROW 100 & 2 MG-% (9GM) VAG KIT 1 applicatorful per vagina q pm x 7 MICONAZOLE NITRATE 26155160594 No Longer Active Ahmet Carbajal MD Active FLAGYL 500 MG TAB 1 tablet by mouth bid METRONIDAZOLE 19410627672 No Longer Active Ahmet Carbajal MD Active OXYCODONE HCL ER 10 MG ORAL T12A 1/2 tab by mouth every 4 hours prn OXYCODONE HCL 81247227579 No Longer Active Ahmet Carbajal MD Active METHYLPREDNISOLONE 4 MG ORAL TABS po daily METHYLPREDNISOLONE 92637390135 No Longer Active Ahmet Carbajal MD Active LEVOFLOXACIN 500 MG ORAL TABS po daily LEVOFLOXACIN 51553828054 No Longer Active Ahmet Carbajal MD Active VIIBRYD 10 MG ORAL TABS Take 1 tablet once a day VILAZODONE HCL 38622633934 No Longer Active Ahmet Carbajal MD Active TOPAMAX 50 MG ORAL TABS 1 tab twice daily TOPIRAMATE 64547020893 No Longer Active Ahmet Carbajal MD Active DICLOFENAC SODIUM 50 MG TBEC 1 tablet by mouth four times daily PRN Pain 2015 DICLOFENAC SODIUM 58178222599 No Longer Active Ahmet Carbajal MD Active ADZENYS XR-ODT 6.3 MG ORAL TBED 1 tab po daily for ADHD AMPHETAMINE 05085381904 No Longer Active Ahmet Carbajal MD Active CHANTIX 1 MG TABS 1 twice a day to help quit smoking VARENICLINE TARTRATE 44360372878 No Longer Active Dipika Burgos MD Active CHANTIX STARTING MONTH EARNEST 0.5 MG X 11 & 1 MG X 42 TABS take as directed 2015 VARENICLINE TARTRATE 72720295833 No Longer Active Dipika Burgos MD Active TESSALON PERLES 100 MG CAP 1 to 2 tablets by mouth 3 times daily as needed for cough BENZONATATE 21942089650 No Longer Active Luigi Martínez APRN Active IMITREX 50 MG ORAL TABS 0.5 po x 1 PRN Headache. May repeat dose x 1 in 2 hours if needed SUMATRIPTAN SUCCINATE 54509596323 Active Ahmet Carbajal MD Active HYDROCODONE-ACETAMINOPHEN 5-325 MG TABS 1 to 2 four times a day as needed for pain use until can be seen by specialist HYDROCODONE- ACETAMINOPHEN 44801654213 No Longer Active Vishal Hui MD Active PROAIR HFA 108 (90 BASE) MCG/ACT AERS 2 puffs four times a day as needed 2015 ALBUTEROL SULFATE 75057755286 No Longer Active Vishal Hui MD Active PREDNISONE 20 MG TABS 2 daily for 5 days then 1 daily for 5 days PREDNISONE 65194958496 No Longer Active Vishal Hui MD Active ZITHROMAX Z-EARNEST 250 MG TABS 2 today and then 1 daily for 4 days AZITHROMYCIN 72871548261 No Longer Active Vishal Hui MD Active DICLOFENAC POTASSIUM TABS Take 1 tablet twice a day (pt. is not sure of the dose.) DICLOFENAC POTASSIUM TABS 06183761477 No Longer Active Vishal Hui MD Active VERAPAMIL HCL ER 120 MG ORAL CR-TABS Take 1 tablet by mouth twice a day. VERAPAMIL HCL 20550809289 Active Vishal Hui MD Active FLAGYL 500 MG TAB 1 tablet by mouth bid METRONIDAZOLE 16330570153 No Longer Active Vishal Hui MD Active VALIUM 5 MG TAB Take 1-2 tablets daily DIAZEPAM 30640767806 No Longer Active Fabiola Johnson APRN Active METOPROLOL TARTRATE 25 MG ORAL TABS 1/2 tablet twice daily for heart rate and blood pressure METOPROLOL TARTRATE 48718476006 No Longer Active Fabiola Johnson APRN Active MIRALAX ORAL POWD 17GMS DAILY IN WATER POLYETHYLENE GLYCOL 3350 26321802472 Active TAMARA Casey Active MIRALAX PACK 1 po qd PRN Constipation POLYETHYLENE GLYCOL 3350 22828283307 No Longer Active Ahmet Carbajal MD Active MINIPRESS 2 MG CAPS 4 cap po at night PRAZOSIN HCL 94224336170 No Longer Active Ahmet Carbajal MD Active PIROXICAM 20 MG CAPS 1 cap po qd PRN Pain PIROXICAM 94953665468 No Longer Active Ahmet Carbajal MD Active TRAMADOL HCL 50 MG TABS 1-2 po TID PRN Pain TRAMADOL HCL 13456715458 No Longer Active Ahmet Carbajal MD Active METOPROLOL TARTRATE 50 MG TAB 1 po bid METOPROLOL TARTRATE 74599966854 No Longer Active Ahmet Carbajal MD Active ABILIFY 15 MG ORAL TABS 1 tab daily ARIPIPRAZOLE 59285670299 No Longer Active Ahmet Carbajal MD Active PROZAC 20 MG ORAL CAPS 1 tab daily FLUOXETINE HCL 01492443447 No Longer Active Ahmet Carbajal MD Active AMBIEN 5 MG ORAL TABS 1 tab at bedtime ZOLPIDEM TARTRATE 06300494771 No Longer Active Ahmet Carbajal MD Active PREDNISONE 20 MG TAB 2 tabs daily for 4 days, 1 tab daily for 4 days, 1/2 tab daily for 4 days PREDNISONE 04020018150 No Longer Active Ahmet Carbajal MD Active KEFLEX 500 MG CAP 1 po TID x 10 days CEPHALEXIN 52915286463 No Longer Active Vishal Hui MD Active SAPHRIS 5 MG SUBL 1 po bid ASENAPINE MALEATE 86592653369 No Longer Active Jillina Frazelephraim SAMPLE TAILOR Active LATUDA 80 MG TABS Take one by mouth daily LURASIDONE HCL 60197264752 No Longer Active Jillina Frazell SAMPLE TAILOR Active AMLODIPINE BESYLATE 5 MG TABS 1 tablet by mouth daily AMLODIPINE BESYLATE 21943353306 No Longer Active Jillina Frazell SAMPLE TAILOR Active AMITRIPTYLINE HCL 100 MG TAB one at hs AMITRIPTYLINE HCL 83104244668 No Longer Active Vishal Hui MD Active TRAZODONE HCL 100 MG TAB take 1 at bedtime TRAZODONE HCL 47394843956 No Longer Active Vishal Hui MD Active VYVANSE 40 MG CAPS 1 daily, LISDEXAMFETAMINE DIMESYLATE 58047840801 No Longer Active Vishal Hui MD Active IBUPROFEN 600 MG TAB 1 po TID PRN IBUPROFEN 05177973153 No Longer Active Vishal Hui MD Active PROZAC 20 MG CAP Take one by mouth daily FLUOXETINE HCL 48443583146 No Longer Active Vishal Hui MD Active BACTRIM DS 800-160 MG TABS 1 pill by mouth twice daily SULFAMETHOXAZOLE-TRIMETHOPRIM 06213337955 No Longer Active Sahara Rodriguez MD PhD Active DIFLUCAN 150 MG TAB 1 tablet by mouth daily FLUCONAZOLE 69713549028 No Longer Active Vishal Hui MD Active TIZANIDINE HCL 4 MG TABS 1 po q6hr PRN Muscle Spasm/Back Pain TIZANIDINE HCL 67480426431 Active Vishal Hui MD Active CLINDAMYCIN HCL 150 MG CAPS 1 four times a day CLINDAMYCIN HCL 25203105832 No Longer Active Neeraj Collins MD Active KEFLEX 500 MG ORAL CAPS 1 cap QID by mouth CEPHALEXIN 71305591012 No Longer Active Neeraj Collins MD Active DIFLUCAN 150 MG TABS 1 pill every other day x 2 doses FLUCONAZOLE 51728362589 No Longer Active Sahara Rodriguez MD PhD Active MELATONIN 3 MG CAPS 2 po q hs MELATONIN 56290034721 No Longer Active Sahara Rdoriguez MD PhD Active MULTIVITAMINS CAPS Take one by mouth daily MULTIPLE VITAMIN 92544756587 No Longer Active Sahara Rodriguez MD PhD Active BACTRIM DS 800-160 MG TAB 1 tab by mouth twice daily TRIMETHOPRIM-SULFAMETHOXAZOLE 00145198760 No Longer Active Sahara Rodriguez MD PhD Active [facility] PROBIOTIC ORAL CHEW 2 daily po PROBIOTIC PRODUCT 94290943443 No Longer Active Sahara Rodriguez MD PhD Active BACTRIM DS 800-160 MG TABS 1 po BID x 7 days SULFAMETHOXAZOLE-TRIMETHOPRIM 17346908540 No Longer Active Vishal Hui MD Active CHANTIX STARTING MONTH EARNEST 0.5 MG X 11 & 1 MG X 42 TABS 0.5mg daily for 3 days , then 0.5mg BID for 4 days, then 1mg BID VARENICLINE TARTRATE 46018232454 No Longer Active Lisette Scarrow, RMA Active VERAPAMIL HCL CR 120 MG TAB CR 1 po bid VERAPAMIL HCL 94596900533 No Longer Active Vishal Hui MD Active METOPROLOL SUCCINATE 50 MG TB24 1 tablet by mouth daily METOPROLOL SUCCINATE 94723980594 No Longer Active Vishal Hui MD Active SAPHRIS 10 MG SUBL 1 tab po bid ASENAPINE MALEATE 96006574723 No Longer Active Vishal Hui MD Active LISINOPRIL 20 MG TABS 1 tab po qd LISINOPRIL 34321169776 No Longer Active Vishal Hui MD Active LATUDA 20 MG TABS Take one by mouth daily LURASIDONE HCL 62502345705 No Longer Active Vishal Hui MD Active TRAZODONE HCL 50 MG TABS 1/2 tab po qd prn for anxiety TRAZODONE HCL 72969797035 No Longer Active Vishal Hui MD Active OMEPRAZOLE 20 MG TBEC 1 po q a.m. 30min prior to first food intake OMEPRAZOLE 17142248821 Active TAMARA Casey Active RANITIDINE HCL 150 MG CAPS 1 twice a day RANITIDINE HCL 58368563171 Active Luigi Martínez APRN Active LINZESS 290 MCG CAPS Take one by mouth daily LINACLOTIDE 13078288742 No Longer Active Vishal Hui MD Active SAPHRIS 5 MG SUBL 1 tab po qd ASENAPINE MALEATE 99071455617 No Longer Active Vishal Hui MD Active ZALEPLON 10 MG CAPS 1 cap po every other night ZALEPLON 87932005358 No Longer Active Vishal Hui MD Active LYRICA 50 MG CAPS 1 tab po TID PREGABALIN 10247269521 No Longer Active Vishal Hui MD Active LORATADINE 10 MG TABS 1 tab po qd LORATADINE 54067269612 No Longer Active Vishal Hui MD Active VERAPAMIL HCL ER 180 MG CR-TABS 1 tab po bid VERAPAMIL HCL 49550747733 No Longer Active Vishal Hui MD Active MIRALAX POWD 1 capfull once daily POLYETHYLENE GLYCOL 3350 74061009982 No Longer Active Vishal Hui MD Active PREDNISONE 20 MG TABS 1 tab po qd PREDNISONE 69474906996 No Longer Active Renzo Thornton DO Active LEVOFLOXACIN 500 MG TABS 1 tab po qd LEVOFLOXACIN 69117890157 No Longer Active Renzo Thornton DO Active BUSPIRONE HCL 15 MG TABS 1 tab po TID BUSPIRONE HCL 00350355102 No Longer Active Renzo Thornton DO Active BENZTROPINE MESYLATE 1 MG TABS 1 tab po qd BENZTROPINE MESYLATE 69556010455 No Longer Active Renzo Thornton DO Active ATENOLOL 25 MG TABS 1 tab po qd ATENOLOL 38951319257 No Longer Active Renzo Thornton DO Active ESCITALOPRAM OXALATE 20 MG TABS 1 tab po qd ESCITALOPRAM OXALATE 95431112064 No Longer Active Renzo Thornton DO Active ADVAIR DISKUS 250-50 MCG/DOSE AEPB 1 puff BID FLUTICASONE-SALMETEROL 46965349483 No Longer Active Renzo Thornton DO Active PREDNISONE 20 MG TAB 2 tabs daily for 3 days, 1 tab daily for 3 days, 1/2 tab daily for 2 days PREDNISONE 58898073062 No Longer Active Vishal Hui MD Active CEFDINIR 300 MG CAPS by mouth twice a day CEFDINIR 16830961536 No Longer Active Vishal Hui MD Active LANSOPRAZOLE 30 MG CPDR 1 cap po qd LANSOPRAZOLE 51598703343 No Longer Active Vishal Hui MD Active BACLOFEN 20 MG TABS 1 tab po tid BACLOFEN 11533964998 No Longer Active Vishal Hui MD Active ADVAIR DISKUS 250-50 MCG/DOSE AEPB 1 puff BID ADVAIR DISKUS 250-50 MCG/DOSE AEPB FLUTICASONE-SALMETEROL Inactive ESCITALOPRAM OXALATE 20 MG TABS 1 tab po qd ESCITALOPRAM OXALATE 20 MG TABS 292725 ESCITALOPRAM OXALATE Inactive ATENOLOL 25 MG TABS 1 tab po qd ATENOLOL 25 MG TABS 733414 ATENOLOL Inactive BENZTROPINE MESYLATE 1 MG TABS 1 tab po qd BENZTROPINE MESYLATE 1 MG TABS 815960 BENZTROPINE MESYLATE Inactive BUSPIRONE HCL 15 MG TABS 1 tab po TID BUSPIRONE HCL 15 MG TABS 788129 BUSPIRONE HCL Inactive LEVOFLOXACIN 500 MG TABS 1 tab po qd LEVOFLOXACIN 500 MG TABS 537351 LEVOFLOXACIN Inactive PREDNISONE 20 MG TABS 1 tab po qd PREDNISONE 20 MG TABS 868322 PREDNISONE Inactive MIRALAX POWD 1 capfull once daily MIRALAX POWD 257521 POLYETHYLENE GLYCOL 3350 Inactive VERAPAMIL HCL ER 180 MG CR-TABS 1 tab po bid VERAPAMIL HCL ER 180 MG CR-TABS VERAPAMIL HCL Inactive LORATADINE 10 MG TABS 1 tab po qd LORATADINE 10 MG TABS 753841 LORATADINE Inactive LYRICA 50 MG CAPS 1 tab po TID LYRICA 50 MG CAPS PREGABALIN Inactive ZALEPLON 10 MG CAPS 1 cap po every other night ZALEPLON 10 MG CAPS 946661 ZALEPLON Inactive SAPHRIS 5 MG SUBL 1 tab po qd SAPHRIS 5 MG SUBL ASENAPINE MALEATE Inactive TRAZODONE HCL 50 MG TABS 1/2 tab po qd prn for anxiety TRAZODONE HCL 50 MG TABS 456547 TRAZODONE HCL Inactive LATUDA 20 MG TABS Take one by mouth daily LATUDA 20 MG TABS LURASIDONE HCL Inactive LISINOPRIL 20 MG TABS 1 tab po qd LISINOPRIL 20 MG TABS 821832 LISINOPRIL Inactive SAPHRIS 10 MG SUBL 1 [...] twice daily BACTRIM DS 800-160 MG TAB 529169 TRIMETHOPRIM-SULFAMETHOXAZOLE Inactive MULTIVITAMINS CAPS Take one by mouth daily MULTIVITAMINS CAPS MULTIPLE VITAMIN Inactive MELATONIN 3 MG CAPS 2 po q hs MELATONIN 3 MG CAPS 599794 MELATONIN Inactive KEFLEX 500 MG ORAL CAPS 1 cap QID by mouth KEFLEX 500 MG ORAL CAPS 944199 CEPHALEXIN Inactive CLINDAMYCIN HCL 150 MG CAPS 1 four times a day CLINDAMYCIN HCL 150 MG CAPS 907539 CLINDAMYCIN HCL Inactive DIFLUCAN 150 MG TAB 1 tablet by mouth daily DIFLUCAN 150 MG TAB 915283 FLUCONAZOLE Inactive PROZAC 20 MG CAP Take one by mouth daily PROZAC 20 MG CAP 582424 FLUOXETINE HCL Inactive IBUPROFEN 600 MG TAB 1 po TID PRN IBUPROFEN 600 MG TAB 266831 IBUPROFEN Inactive VYVANSE 40 MG CAPS 1 daily, VYVANSE 40 MG CAPS LISDEXAMFETAMINE DIMESYLATE Inactive TRAZODONE HCL 100 MG TAB take 1 at bedtime TRAZODONE HCL 100 MG TAB 276134 TRAZODONE HCL Inactive AMITRIPTYLINE HCL 100 MG TAB one at hs AMITRIPTYLINE HCL 100 MG TAB 625285 AMITRIPTYLINE HCL Inactive AMLODIPINE BESYLATE 5 MG TABS 1 tablet by mouth daily AMLODIPINE BESYLATE 5 MG TABS 177429 AMLODIPINE BESYLATE Inactive LATUDA 80 MG TABS Take one by mouth daily LATUDA 80 MG TABS LURASIDONE HCL Inactive SAPHRIS 5 MG SUBL 1 po bid SAPHRIS 5 MG SUBL ASENAPINE MALEATE Inactive PREDNISONE 20 MG TAB 2 tabs daily for 4 days, 1 tab daily for 4 days, 1/2 tab daily for 4 days PREDNISONE 20 MG TAB 641217 PREDNISONE Inactive AMBIEN 5 MG ORAL TABS 1 tab at bedtime AMBIEN 5 MG ORAL TABS 855132 ZOLPIDEM TARTRATE Inactive PROZAC 20 MG ORAL CAPS 1 tab daily PROZAC 20 MG ORAL CAPS 587998 FLUOXETINE HCL Inactive ABILIFY 15 MG ORAL TABS 1 tab daily ABILIFY 15 MG ORAL TABS 715238 ARIPIPRAZOLE Inactive METOPROLOL TARTRATE 50 MG TAB 1 po bid METOPROLOL TARTRATE 50 MG TAB 170086 METOPROLOL TARTRATE Inactive TRAMADOL HCL 50 MG TABS 1-2 po TID PRN Pain TRAMADOL HCL 50 MG TABS 120017 TRAMADOL HCL Inactive PIROXICAM 20 MG CAPS 1 cap po qd PRN Pain PIROXICAM 20 MG CAPS 921796 PIROXICAM Inactive MINIPRESS 2 MG CAPS 4 cap po at night MINIPRESS 2 MG CAPS 854539 PRAZOSIN HCL Inactive MIRALAX PACK 1 po qd PRN Constipation MIRALAX PACK 788751 POLYETHYLENE GLYCOL 3350 Inactive METOPROLOL TARTRATE 25 MG ORAL TABS 1/2 tablet twice daily for heart rate and blood pressure METOPROLOL TARTRATE 25 MG ORAL TABS 054926 METOPROLOL TARTRATE Inactive VALIUM 5 MG TAB Take 1-2 tablets daily VALIUM 5 MG TAB 143196 DIAZEPAM Inactive FLAGYL 500 MG TAB 1 tablet by mouth bid FLAGYL 500 MG TAB 477841 METRONIDAZOLE Inactive DICLOFENAC POTASSIUM TABS Take 1 tablet twice a day (pt. is not sure of the dose.) DICLOFENAC POTASSIUM TABS DICLOFENAC POTASSIUM TABS Inactive ZITHROMAX Z-EARNEST 250 MG TABS 2 today and then 1 daily for 4 days ZITHROMAX Z-EARNEST 250 MG TABS 5141755 AZITHROMYCIN Inactive PREDNISONE 20 MG TABS 2 daily for 5 days then 1 daily for 5 days PREDNISONE 20 MG TABS 312648 PREDNISONE Inactive PROAIR HFA 108 (90 BASE) MCG/ACT AERS 2 puffs four times a day as needed 2015 PROAIR HFA 108 (90 BASE) MCG/ACT AERS ALBUTEROL SULFATE Inactive HYDROCODONE-ACETAMINOPHEN 5-325 MG TABS 1 to 2 four times a day as needed for pain use until can be seen by specialist HYDROCODONE- ACETAMINOPHEN 5-325 MG TABS 142330 HYDROCODONE-ACETAMINOPHEN Inactive TESSALON PERLES 100 MG CAP 1 to 2 tablets by mouth 3 times daily as needed for cough TESSALON PERLES 100 MG CAP 072173 BENZONATATE Inactive CHANTIX STARTING MONTH EARNEST 0.5 [...] Pain 2015 DICLOFENAC SODIUM 50 MG TBEC 350138 DICLOFENAC SODIUM Inactive TOPAMAX 50 MG ORAL TABS 1 tab twice daily TOPAMAX 50 MG ORAL TABS 381294 TOPIRAMATE Inactive VIIBRYD 10 MG ORAL TABS Take 1 tablet once a day VIIBRYD 10 MG ORAL TABS VILAZODONE HCL Inactive LEVOFLOXACIN 500 MG ORAL TABS po daily LEVOFLOXACIN 500 MG ORAL TABS 473590 LEVOFLOXACIN Inactive METHYLPREDNISOLONE 4 MG ORAL TABS po daily METHYLPREDNISOLONE 4 MG ORAL TABS 662309 METHYLPREDNISOLONE Inactive OXYCODONE HCL ER 10 MG ORAL T12A 1/2 tab by mouth every 4 hours prn OXYCODONE HCL ER 10 MG ORAL T12A OXYCODONE HCL Inactive FLAGYL 500 MG TAB 1 tablet by mouth bid FLAGYL 500 MG TAB 207665 METRONIDAZOLE Inactive MONISTAT 7 COMBO PACK WOODROW 100 & 2 MG-% (9GM) VAG KIT 1 applicatorful per vagina q pm x 7 MONISTAT 7 COMBO PACK WOODROW 100 & 2 MG-% (9GM) VAG KIT MICONAZOLE NITRATE Inactive BACTRIM DS 800-160 MG TABS 1 twice a day BACTRIM DS 800-160 MG TABS 856431 SULFAMETHOXAZOLE-TRIMETHOPRIM Inactive TRAMADOL HCL 50 MG TABS 1/2-1 tab TID PRN TRAMADOL HCL 50 MG TABS 236248 TRAMADOL HCL Inactive ABILIFY MAINTENA 400 MG IM SUSR 400mg injection every 26 days ABILIFY MAINTENA 400 MG IM SUSR ARIPIPRAZOLE Inactive KLONOPIN 1 MG ORAL TABS 1 tab po TID KLONOPIN 1 MG ORAL TABS 512430 CLONAZEPAM Inactive ADVAIR DISKUS 250-50 MCG/DOSE INH AEPB 1 puff twice a day for asthma ADVAIR DISKUS 250-50 MCG/DOSE INH AEPB FLUTICASONE- SALMETEROL Inactive BENADRYL 25 MG CAP 4 po at bedtime for insomnia BENADRYL 25 MG CAP DIPHENHYDRAMINE HCL Inactive PREDNISONE 20 MG TABS 2 daily for 5 days then 1 daily for 5 days PREDNISONE 20 MG TABS 569113 PREDNISONE Inactive HYDROCODONE-ACETAMINOPHEN 5-325 MG ORAL TABS 1 tab two times a day HYDROCODONE-ACETAMINOPHEN 5-325 MG ORAL TABS 735296 HYDROCODONE-ACETAMINOPHEN Inactive ZITHROMAX Z-EARNEST 250 MG TABS 2 today and then 1 daily for 4 days ZITHROMAX Z-EARNEST 250 MG TABS 5420348 AZITHROMYCIN Inactive GUAIFENESIN-CODEINE 100-10 MG/5ML SYRP 5ml every 4 to 6 hours as needed for cough GUAIFENESIN-CODEINE 100-10 MG/5ML SYRP 627864 GUAIFENESIN-CODEINE Inactive HALOPERIDOL 10 MG ORAL TABS 1 tab q.d HALOPERIDOL 10 MG ORAL TABS 669839 HALOPERIDOL Inactive ASPIRIN 325 MG ORAL TABS 1 tab q.d ASPIRIN 325 MG ORAL TABS 660477 ASPIRIN Inactive FLUTICASONE PROPIONATE 50 MCG/ACT SUSP 2 sprays each nostril daily before bed. FLUTICASONE PROPIONATE 50 MCG/ACT SUSP 8976764 FLUTICASONE PROPIONATE Inactive ZOFRAN 4 MG TABS 1 po q6hr PRN Nausea ZOFRAN 4 MG TABS 373369 ONDANSETRON HCL Inactive CEFDINIR 300 MG CAPS by mouth twice a day CEFDINIR 300 MG CAPS 208511 CEFDINIR Inactive PREDNISONE 20 MG TAB 2 tabs daily for 3 days, 1 tab daily for 3 days, 1/2 tab daily for 2 days PREDNISONE 20 MG TAB 896995 PREDNISONE Inactive BACTRIM DS 800-160 MG TABS 1 po BID x 7 days BACTRIM DS 800-160 MG TABS 19820521 SULFAMETHOXAZOLE-TRIMETHOPRIM Inactive DIFLUCAN 150 MG TABS 1 pill every other day x 2 doses DIFLUCAN 150 MG TABS 522517 FLUCONAZOLE Inactive BACTRIM DS 800-160 MG TABS 1 pill by mouth twice daily BACTRIM DS 800-160 MG TABS 19820521 SULFAMETHOXAZOLE-TRIMETHOPRIM Inactive KEFLEX 500 MG CAP 1 po TID x 10 days KEFLEX 500 MG CAP 249547 CEPHALEXIN Inactive Advance Directives Directive Description Start [...] % 11.0-15.0 platelet count 443 THOUSAND/UL 10*3/mm3 210-841 6258/03/01 mean platelet volume 8.2 fL 7.5-12.5 Lab [...] 369 10^3/MM^3 10*3/mm3 142-424 Lab Report: Chlamydia/GC APTIMA/[id number] - Lab chlamydia DNA probe NOT DETECTED NOT DETECTED Lab Report: Chlamydia/GC APTIMA/[id number] - Microbiology Neisseria gonorrhoeae DNA probe NOT DETECTED NOT DETECTED Lab Report: Chlamydia/GC APTIMA/[id number], Urinalysis, Complete, with Reflex ... - Lab chlamydia DNA probe NOT DETECTED NOT DETECTED Lab Report: Chlamydia/GC APTIMA/[id number], Urinalysis, Complete, with Reflex ... - Microbiology Neisseria gonorrhoeae DNA probe NOT DETECTED NOT DETECTED Lab Report: Chlamydia/GC APTIMA/[id number], Urinalysis, Complete, with Reflex ... - Urinalysis microalbumin/total urine volume 2 mg/L Units converted. See lab report for original value. microalbumin/creatinine ratio, urine 9 MCG/MG CREAT mg/L <30 Lab Report: Comp. Metabolic Panel - Chemistry sodium, serum 142 mmol/L 799-193 9393/06/08 carbon dioxide, venous blood 27.6 mmol/L 21.0-32.0 potassium, serum 4.0 mmol/L 3.5-5.2 chloride, serum 105 mmol/L 98-107 blood glucose 95 mg/dL 65-110 urea nitrogen, blood 8 mg/dL 7-18 creatinine, serum 0.75 mg/dL 0.55-1.30 alanine aminotransferase (SGPT), serum 49 U/L - aspartate aminotransferase (SGOT), serum 28 U/L 15-37 calcium, serum 9.4 mg/dL 8.5-10.1 bilirubin, serum, total 0.30 mg/dL 0.00-1.00 sodium, serum 140 mmol/L 150-030 2565/08/08 carbon dioxide, venous blood 33.7 mmol/L 21.0-32.0 [...] mg/dL Encounters Code Encounter Date Provider Facility CPT-75417 Level 3 Est. Patient 11:04:38 CDT Renzo W Norberto [facility] CPT-21738 Level 3 Est. Patient 11:15:58 CASE THERAPIST Renzo Thornton [facility] CPT-77533 Level 3 Est. Patient 15:28:23 CASE THERAPIST [facility] CPT-24060 Level 4 Est. Patient 10:20:54 CASE THERAPIST [facility] CPT-95459 Level 3 Est. Patient 11:47:37 CASE THERAPIST Ahmet Carbajal MD [facility] CPT-83390 Level 3 Est. Patient 10:40:11 CASE THERAPIST Ahmet Carbajal MD [facility] CPT-71417 Level 3 Est. Patient 15:07:06 CASE THERAPIST Neeraj Collins MD [facility] CPT-06652 Level 4 Est. Patient 14:45:00 CASE THERAPIST Ahmet Carbajal MD [facility] CPT-82810 Level 3 Est. Patient 13:59:59 CDT [facility] CPT-57389 Level 3 Est. Patient 18:18:53 CDT Neeraj Collins MD [facility] CPT-95534 Level 3 Est. Patient 15:50:44 CDT Vishal Hiu MD [facility] CPT-28218 Level 3 Est. Patient 11:36:17 CDT [facility]al [facility] [facility] CPT-24127 Level 3 Est. Patient 13:29:16 CDT Vishal Hui MD [facility] CPT-70402 Level 3 Est. Patient 14:27:52 CDT Neeraj Collins MD [facility] CPT-69058 Level 3 Est. Patient 08:56:03 CDT [facility] CPT-31487 Level 4 Est. Patient 12:11:48 CDT [facility] CPT-29176 Level 3 New Patient 16:53:37 CDT Albert Caldera MD [facility] CPT-36888 Level 3 Est. Patient 11:25:49 CDT Renzo Thornton [facility] CPT-87818 Level 3 Est. Patient 15:22:01 CDT Ahmet Carbajal MD [facility] CPT-51804 Level 4 Est. Patient 09:00:51 CASE THERAPIST Vishal Hui MD [facility] CPT-54428 Level 3 Est. Patient 11:37:33 CASE THERAPIST Vishal Hui MD [facility] CPT-52163 Level 3 Est. Patient 08:41:09 CASE THERAPIST Vishal Hui MD [facility] CPT-06173 Level 4 Est. Patient 10:19:35 CASE THERAPIST Vishal Hui MD [facility] CPT-77211 Level 3 Est. Patient 13:35:45 CDT Vishal Hui MD [facility] CPT-93397 Level 4 Est. Patient 10:08:37 CDT Vishal Hui MD [facility] CPT-57292 Level 3 Est. Patient 11:22:10 CDT Vishal Hui MD [facility] CPT-14239 Level 3 Est. Patient 11:03:32 CDT Sahara Rodriguez MD, PhD [facility] CPT-48417 Level 3 Est. Patient 09:41:35 CDT Vishal Hui MD [facility] CPT-73106 Level 3 Est. Patient 12:00:41 CDT Neeraj Collins MD [facility] CPT-66359 Level 3 Est. Patient 09:16:24 CDT Vishal Hui MD [facility] CPT-65044 Level 4 Est. Patient 13:59:09 CDT Neeraj Collins MD [facility] CPT-95190 Level 3 Est. Patient 15:19:43 CDT Renzo Thornton DO [facility] CPT-91594 Level 3 Est. Patient 18:10:26 CDT Sahara Rodriguez MD PhD [facility] CPT-32048 Level 3 Est. Patient 14:49:50 CDT Vishal Hui MD [facility] CPT-03829 Level 4 Est. Patient 18:41:46 CDT Neeraj Collins MD [facility] CPT-94177 Level 4 Est. Patient 09:18:38 CASE THERAPIST Vishal Hui MD [facility] CPT-60953 Level 3 Est. Patient 14:43:55 CASE THERAPIST Vishal Hui MD [facility] CPT-20948 Level 3 Est. Patient 15:26:33 CASE THERAPIST Sahara Rodriguez MD PhD [facility] CPT-35544 Level 3 Est. Patient 10:32:14 CASE THERAPIST Vishal Hui MD [facility] CPT-02375 Level 3 Est. Patient 15:12:52 CASE THERAPIST Vishal Hui MD [facility] CPT-95508 Level 4 Est. Patient 09:19:27 CDT Vishal Hui MD [facility] CPT-73609 Level 3 Est. Patient 15:53:00 CDT Renzo Thornton [facility] CPT-63978 Level 3 Est. Patient 15:50:30 CDT Renzo Thornton [facility] CPT-23718 Level 3 Est. Patient 16:55:24 CDT Vishal Hui MD [facility] Procedures Code Procedure Name Date Entry Date Standard Description CPT-03585 Smoking Cessation counseling 11:15:58 CASE THERAPIST CPT-G0439 [facility] Annual Wellness Exam 09:30:58 CASE THERAPIST CPT-85794 TSH - LAB USE ONLY 08:50:26 CASE THERAPIST CPT-34361 CBC - LAB USE ONLY 08:50:26 CASE THERAPIST CPT-80431 Venipuncture Draw Fee 08:50:26 CASE THERAPIST CPT-04087 Abx/Therapy Injection 17:34:30 CASE THERAPIST CPT-29315 Nexplanon Removal with Reinsertion 14:09:32 CDT CPT-J7307 Nexplanon (Implant) 14:09:32 CDT CPT-OV Office Visit 14:09:32 CDT CPT-70185 UA w micro - LAB USE ONLY 16:21:13 CDT CPT-16325 Wet Mount - LAB USE ONLY 16:21:13 CDT CPT-51158 First Vx - Ix admin for Medicare patients 14:37:47 CDT CPT-01438 Fluzone Preservative Free Intramuscular Suspension 14:37 :47 CDT CPT-71064 Abx/Therapy Injection 13:54:22 CDT CPT-48115 Abx/Therapy Injection 08:47:09 CDT CPT-01064 Abx/Therapy Injection 13:29:56 CDT CPT-85257 Abx/Therapy Injection 08:36:16 CDT CPT-79150 Wet Mount - LAB USE ONLY 17:44:58 CDT CPT-54846 UA w micro - LAB USE ONLY 17:44:58 CDT CPT-47158 CMP - LAB USE ONLY 17:44:58 CDT CPT-81586 Venipuncture Draw Fee 17:44:58 CDT CPT-89397 Cervical Min 4V - XRAY USE ONLY 09:01:40 CDT CPT-80361 Chest 2V Frontal and Lat - XRAY USE ONLY 11:06:31 CDT CPT-78994 EKG Trac and Interp - XRAY USE ONLY 11:31:43 CDT 08/26 CPT-J3420 Vitamin B12 1000mcg (Cyanocobalamin) 08:10:26 CASE THERAPIST 04/12 CPT-59306 Abx/Therapy Injection 08:10:26 CASE THERAPIST CPT-G0438 Initial Annual Wellness Exam 19:01:01 CASE THERAPIST CPT-J3420 Vitamin B12 1000mcg (Cyanocobalamin) 16:57:46 CDT 08/14 CPT-27901 Recombivax HB Injection Suspension 5 MCG/0.5ML 08:37:50 CASE THERAPIST CPT-92779 Immunization Single Admin 08:37:50 CASE THERAPIST CPT-J3420 Vitamin B12 1000mcg (Cyanocobalamin) 08:32:16 CASE THERAPIST 03/11 CPT-69892 Abx/Therapy Injection 08:32:16 CASE THERAPIST CPT-70928 Chest 2V Frontal and Lat 11:46:38 CASE THERAPIST CPT-15975 Venipuncture Draw Fee 09:12:45 CASE THERAPIST CPT-J3420 Vitamin B12 1000mcg (Cyanocobalamin) 08:50:15 CASE THERAPIST 02/08 CPT-45900 Abx/Therapy Injection 08:50:15 CASE THERAPIST CPT-Cryo Cryotherapy 10:19:35 CASE THERAPIST CPT-000 Give Appropriate Flu Vaccine 09:22:16 CDT CPT-J3420 Vitamin B12 1000mcg (Cyanocobalamin) 19:08:57 CDT 01/11 CPT-80608 Abx/Therapy Injection 19:08:57 CDT CPT-J3420 Vitamin B12 1000mcg (Cyanocobalamin) 08:19:08 CDT 12/11 CPT-46567 Abx/Therapy Injection 08:19:08 CDT CPT-J3420 Vitamin B12 1000mcg (Cyanocobalamin) 14:48:00 CDT 11/09 CPT-29803 Abx/Therapy Injection 14:47:59 CDT CPT-J3420 Vitamin B12 1000mcg (Cyanocobalamin) 08:34:04 CDT 10/09 CPT-93990 Abx/Therapy Injection 08:34:04 CDT CPT-J3420 Vitamin B12 1000mcg (Cyanocobalamin) 09:18:52 CDT 09/11 CPT-50266 Abx/Therapy Injection 09:18:52 CDT CPT-J3420 Vitamin B12 1000mcg (Cyanocobalamin) 08:35:44 CDT 09/04 CPT-26380 Abx/Therapy Injection 08:35:44 CDT CPT-97386 Immunization Single Admin 11:07:16 CDT CPT-07993 Hepatitis B adult IM 11:07:16 CDT CPT-J3420 Vitamin B12 1000mcg (Cyanocobalamin) 11:00:49 CDT 08/28 CPT-J1040 Depo Medrol 80 mg (Methyl Prednisolone Acetate) 11:00: 49 CDT CPT-71816 Abx/Therapy Injection 11:00:49 CDT CPT-J1040 Depo Medrol 80 mg (Methyl Prednisolone Acetate) 09:16: 23 CDT CPT-J3420 Vitamin B12 1000mcg (Cyanocobalamin) 08:27:05 CDT 08/20 CPT-41025 Abx/Therapy Injection 08:27:05 CDT CPT-78933 Recombivax HB Injection Suspension 5 MCG/0.5ML 10:00:41 CDT CPT-81484 Administration single or combination vaccine inc oral 10 :00:41 CDT CPT-18832 Sono transvag pelvis non OB uterus ovaries cervix 16:36: 57 CDT CPT-68123 LS spine comp w obliq 09:50:55 CASE THERAPIST CPT-67646 Abd compl w upright 09:50:55 CASE THERAPIST CPT-J1100 Decadron 4mg (Dexamethasone) 15:51:24 CASE THERAPIST CPT-J1030 Depo Medrol 40 mg (Methyl Prednisolone Acetate) 15:51: 24 CASE THERAPIST CPT-51093 Abx/Therapy Injection 15:51:24 CASE THERAPIST CPT-J1100 Decadron 4mg (Dexamethasone) 15:26:33 CASE THERAPIST CPT-J1030 Depo Medrol 40 mg (Methyl Prednisolone Acetate) 15:26: 33 CASE THERAPIST CPT-10475 Sono retroperitoneal complete kidneys and bladder 17:15: 30 CDT CPT-31541 Abd compl w upright 16:09:25 CDT CPT-J1100 Decadron 8mg (Dexamethasone) 17:07:57 CDT CPT-42465 Abx/Therapy Injection 17:07:57 CDT CPT-J1100 Decadron 8mg (Dexamethasone) 16:55:24 CDT CPT-02129 Chest 2V Frontal and Lat 16:32:44 CDT
--- OUTSIDE RECORDS SUMMARY | 2016-11-05 00:25 | XMS REPORT | Clinical Summary ---
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 exam V72.31 Resolved Suzan Boo [...] Boo APRN DYSURIA ICD-788.1 Inactive Suzan Boo CORE SUCKER Cellulitis and abscess of breast ICD-611.0 Inactive Ahmet Carbajal MD Nondisplaced transverse fracture of shaft of left fibula, subsequent encounter for closed fracture with routine healing Inactive Suzan Boo CORE SUCKER Bronchitis, acute ICD-466.0 Inactive Ahmet Carbajal MD 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 well woman exam ICD-V72.31 Inactive Suzan Boo CORE SUCKER Bronchitis, acute with mild bronchospasm ICD-466.0 Inactive Suzan Boo CORE SUCKER Tracheitis ICD-464.10 Inactive Suzan Boo APRN Impetigo ICD-684 Inactive Suzan Boo CORE SUCKER Furuncle of buttock ICD-680.5 Inactive Suzan Boo [...] % OINT apply twice a day MUPIROCIN 75074841296 Active Suzan Boo APRN Active BACTRIM DS 800-160 MG TABS 1 twice a day SULFAMETHOXAZOLE- TRIMETHOPRIM 82764015951 Active Suazn Boo APRN Active [id number] 50-325-40 MG TABS 1 to 2 four times a day as needed for headache [id number] 53728273824 Active Suzan Boo APRN Active METOCLOPRAMIDE HCL 10 MG TABS 1 two times as needed for nausea and headaches METOCLOPRAMIDE HCL 23394120329 Active Meena Ortiz MA Active NYSTATIN 093522 UNIT/GM CREA apply three times a day to yeast rash NYSTATIN 09696744610 Active Suzan Boo APRN Active AMITIZA 24 MCG ORAL CAPS one capsule twice daily LUBIPROSTONE 27531948847 Active Suzan Boo APRN Active MIRALAX ORAL POWD 17GMS DAILY IN WATER POLYETHYLENE GLYCOL 3350 73515016367 No Longer Active Suzan Boo APRN Active LACTULOSE 10 GM/15ML ORAL SOLN 30mL oral BID for IBS-C LACTULOSE 90750602592 No Longer Active Suzan Boo APRN Active BACTRIM DS 800-160 MG TAB Take one (1) tablet by mouth twice a day for 5 days TRIMETHOPRIM-SULFAMETHOXAZOLE 15850127400 No Longer Active Suzan Boo APRN Active MUPIROCIN 2 % OINT apply twice a day MUPIROCIN 77266023860 No Longer Active Suzan Boo APRN Active BACTRIM DS 800-160 MG TABS 1 twice a day SULFAMETHOXAZOLE-TRIMETHOPRIM 96725457584 No Longer Active Suzan Boo APRN Active DIFLUCAN 150 MG TABS 1 by mouth for yeast FLUCONAZOLE 07010016510 No Longer Active Suzan Boo APRN Active LINZESS 290 MCG ORAL CAPS 1 tab 30 min prior to first meal each day. LINACLOTIDE 32285466026 No Longer Active Sheila Calderon LPN Active AMITIZA 8 MCG ORAL CAPS 1 tab BID LUBIPROSTONE 23528789441 No Longer Active Lynda Xiao TELECOMMUNICATION TOWER TECHNICIAN Active TESSALON PERLES 100 MG CAPS 1 three times a day as needed for cough BENZONATATE 52250256095 No Longer Active Suzan Boo APRN Active BACTRIM DS 800-160 MG TABS 1 twice a day SULFAMETHOXAZOLE-TRIMETHOPRIM 54315889689 No Longer Active Suzan Boo APRN Active DIFLUCAN 150 MG TABS 1 by mouth for yeast FLUCONAZOLE 61045995267 No Longer Active Suzan Boo APRN Active EQ NICOTINE 21 MG/24HR TRANS PT24 Apply daily to stop smoking NICOTINE 19738458279 No Longer Active Suzan Boo APRN Active PREDNISONE 10 MG TABS 2 daily for 5 days then 1 daily for 5 days PREDNISONE 51645147765 No Longer Active Suzan Boo APRN Active LEVAQUIN 500 MG TABS 1 daily for infection LEVOFLOXACIN 98728959878 No Longer Active Suzan Boo APRN Active TROPICAMIDE 0.5 % OPHTH SOLN 1 drop PRN eye spasms TROPICAMIDE 82864462247 No Longer Active Suzan Boo APRN Active PREDNISONE 20 MG TAB 1 tablet daily x 4 days PREDNISONE 16101923155 No Longer Active Suzan Boo APRN Active ACETAMINOPHEN-CODEINE 120-12 MG/5ML SOLN 5 ml by mouth every 4-6 hours if needed for cough ACETAMINOPHEN-CODEINE 45836342182 No Longer Active Suzan Boo APRN Active KEFLEX 500 MG CAP 1 po qid CEPHALEXIN 95739042956 No Longer Active Suzan Boo APRN Active FLOVENT HFA 110 MCG/ACT AERO 2 puffs inhaled b.i.d. FLUTICASONE PROPIONATE HFA 38302144982 Active Renzo Barajas Norberto FONSECA Active RISPERDAL 4 MG ORAL TABS 1 tab at bedtime RISPERIDONE 21734390318 Active Samantha Rothman RMA Active ZOFRAN 4 MG TABS 1 po q6hr PRN Nausea ONDANSETRON HCL No Longer Active Suzan Boo APRN Active FLUTICASONE PROPIONATE 50 MCG/ACT SUSP 2 sprays each nostril daily before bed. FLUTICASONE PROPIONATE 69983020710 No Longer Active Suzan oBo APRN Active ASPIRIN 325 MG ORAL TABS 1 tab q.d ASPIRIN 99528821018 No Longer Active Suzan Boo APRN Active HALOPERIDOL 10 MG ORAL TABS 1 tab q.d HALOPERIDOL 69717603502 No Longer Active Suzan Boo APRN Active GUAIFENESIN-CODEINE 100-10 MG/5ML SYRP 5ml every 4 to 6 hours as needed for cough GUAIFENESIN-CODEINE 96643833732 No Longer Active Suzan Boo APRN Active ZITHROMAX Z-EARNEST 250 MG TABS 2 today and then 1 daily for 4 days AZITHROMYCIN 26967102862 No Longer Active Suzan Boo APRN Active CLONAZEPAM 1 MG ORAL TABS 1 twice a day and an additional 1 tablet every other day as needed for pseudoseizures or anxiety CLONAZEPAM 12048719710 Active Suzan Boo APRN Active HYDROCODONE-ACETAMINOPHEN 5-325 MG ORAL TABS 1 tab two times a day HYDROCODONE-ACETAMINOPHEN 78794770161 No Longer Active Ahmet Carbajal MD Active LAMICTAL 100 MG ORAL TABS 1 tab 2 times qd. LAMOTRIGINE 54641283430 Active Ahmet Carbajal MD Active PREDNISONE 20 MG TABS 2 daily for 5 days then 1 daily for 5 days PREDNISONE 92872256770 No Longer Active Ahmet Carbajal MD Active FLUTICASONE PROPIONATE 50 MCG/ACT SUSP 1 to 2 sprays each nostril daily for allergies FLUTICASONE PROPIONATE 23618293693 Active Tila Nicolas Active BENADRYL 25 MG CAP 4 po at bedtime for insomnia DIPHENHYDRAMINE HCL 54411606545 No Longer Active Ahmet Carbajal MD Active ADVAIR DISKUS 250-50 MCG/DOSE INH AEPB 1 puff twice a day for asthma FLUTICASONE-SALMETEROL 09098518493 No Longer Active Ahmet Carbajal MD Active KLONOPIN 1 MG ORAL TABS 1 tab po TID CLONAZEPAM 19768358616 No Longer Active Ahmet Carbajal MD Active ABILIFY MAINTENA 400 MG IM SUSR 400mg injection every 26 days ARIPIPRAZOLE 68359601835 No Longer Active Ahmet Carbajal MD Active TRAMADOL HCL 50 MG TABS 1/2-1 tab TID PRN TRAMADOL HCL 88803729167 No Longer Active Ahmet Carbajal MD Active BACTRIM DS 800-160 MG TABS 1 twice a day SULFAMETHOXAZOLE- TRIMETHOPRIM 28116820040 No Longer Active Ahmet Carbajal MD Active PROAIR HFA 108 (90 BASE) MCG/ACT AERS 2 puffs four times a day as needed 2015 ALBUTEROL SULFATE 45750749496 Active Honey Hinton CORE SUCKER Active MONISTAT 7 COMBO PACK WOODROW 100 & 2 MG-% (9GM) VAG KIT 1 applicatorful per vagina q pm x 7 MICONAZOLE NITRATE 91025383948 No Longer Active Ahmet Carbajal MD Active FLAGYL 500 MG TAB 1 tablet by mouth bid METRONIDAZOLE 96390063286 No Longer Active Ahmet Carbajal MD Active OXYCODONE HCL ER 10 MG ORAL T12A 1/2 tab by mouth every 4 hours prn OXYCODONE HCL 72280558651 No Longer Active Ahmet Carbajal MD Active METHYLPREDNISOLONE 4 MG ORAL TABS po daily METHYLPREDNISOLONE 66267417234 No Longer Active Ahmet Carbajal MD Active LEVOFLOXACIN 500 MG ORAL TABS po daily LEVOFLOXACIN 54021950082 No Longer Active Ahmet Carbajal MD Active VIIBRYD 10 MG ORAL TABS Take 1 tablet once a day VILAZODONE HCL 95681946929 No Longer Active Ahmet Carbajal MD Active TOPAMAX 50 MG ORAL TABS 1 tab twice daily TOPIRAMATE 46312998699 No Longer Active Ahmet Carbajal MD Active DICLOFENAC SODIUM 50 MG TBEC 1 tablet by mouth four times daily PRN Pain 2015 DICLOFENAC SODIUM 59863549955 No Longer Active Ahmet Carbajal MD Active ADZENYS XR-ODT 6.3 MG ORAL TBED 1 tab po daily for ADHD AMPHETAMINE 76291432760 No Longer Active Ahmet Carbajal MD Active CHANTIX 1 MG TABS 1 twice a day to help quit smoking VARENICLINE TARTRATE 88357888281 No Longer Active Dipika Burgos MD Active CHANTIX STARTING MONTH EARNEST 0.5 MG X 11 & 1 MG X 42 TABS take as directed 2015 VARENICLINE TARTRATE 06352185314 No Longer Active Dipika Burgos MD Active TESSALON PERLES 100 MG CAP 1 to 2 tablets by mouth 3 times daily as needed for cough BENZONATATE 18069792656 No Longer Active Luigi Martínez APRN Active IMITREX 50 MG ORAL TABS 0.5 po x 1 PRN Headache. May repeat dose x 1 in 2 hours if needed SUMATRIPTAN SUCCINATE 36208879567 Active TAMARA Casey Active HYDROCODONE-ACETAMINOPHEN 5-325 MG TABS 1 to 2 four times a day as needed for pain use until can be seen by specialist HYDROCODONE- ACETAMINOPHEN 70677525679 No Longer Active Vishal Hui MD Active PROAIR HFA 108 (90 BASE) MCG/ACT AERS 2 puffs four times a day as needed 2015 ALBUTEROL SULFATE 38719581832 No Longer Active Vishal Hui MD Active PREDNISONE 20 MG TABS 2 daily for 5 days then 1 daily for 5 days PREDNISONE 31731128116 No Longer Active Vishal Hui MD Active ZITHROMAX Z-EARNEST 250 MG TABS 2 today and then 1 daily for 4 days AZITHROMYCIN 76381683086 No Longer Active Vishal Hui MD Active DICLOFENAC POTASSIUM TABS Take 1 tablet twice a day (pt. is not sure of the dose.) DICLOFENAC POTASSIUM TABS 52174041971 No Longer Active Vishal Hui MD Active VERAPAMIL HCL ER 120 MG ORAL CR-TABS Take 1 tablet by mouth twice a day. VERAPAMIL HCL 87747537217 Active Vishal Hui MD Active FLAGYL 500 MG TAB 1 tablet by mouth bid METRONIDAZOLE 18311229995 No Longer Active Vishal Hui MD Active VALIUM 5 MG TAB Take 1-2 tablets daily DIAZEPAM 10907659668 No Longer Active Fabiola Johnson APRN Active METOPROLOL TARTRATE 25 MG ORAL TABS 1/2 tablet twice daily for heart rate and blood pressure METOPROLOL TARTRATE 21828560653 No Longer Active Fabiola Johnson APRN Active MIRALAX PACK 1 po qd PRN Constipation POLYETHYLENE GLYCOL 3350 21146312011 No Longer Active Ahmet Carbajal MD Active MINIPRESS 2 MG CAPS 4 cap po at night PRAZOSIN HCL 89600002970 No Longer Active Ahmet Carbajal MD Active PIROXICAM 20 MG CAPS 1 cap po qd PRN Pain PIROXICAM 10412128862 No Longer Active Ahmet Carbajal MD Active TRAMADOL HCL 50 MG TABS 1-2 po TID PRN Pain TRAMADOL HCL 52325576439 No Longer Active Ahmet Carbajal MD Active METOPROLOL TARTRATE 50 MG TAB 1 po bid METOPROLOL TARTRATE 43594495846 No Longer Active Ahmet Carbajal MD Active ABILIFY 15 MG ORAL TABS 1 tab daily ARIPIPRAZOLE 55909498446 No Longer Active Ahmet Carbajal MD Active PROZAC 20 MG ORAL CAPS 1 tab daily FLUOXETINE HCL 25740706569 No Longer Active Ahmet Carbajal MD Active AMBIEN 5 MG ORAL TABS 1 tab at bedtime ZOLPIDEM TARTRATE 97280138239 No Longer Active Ahmet Carbajal MD Active PREDNISONE 20 MG TAB 2 tabs daily for 4 days, 1 tab daily for 4 days, 1/2 tab daily for 4 days PREDNISONE 87328240827 No Longer Active Ahmet Carbajal MD Active KEFLEX 500 MG CAP 1 po TID x 10 days CEPHALEXIN 04261643654 No Longer Active Vishal Hui MD Active SAPHRIS 5 MG SUBL 1 po bid ASENAPINE MALEATE 60280593613 No Longer Active Jillina Frazell CORE SUCKER Active LATUDA 80 MG TABS Take one by mouth daily LURASIDONE HCL 17128747533 No Longer Active Jillina Frazell CORE SUCKER Active AMLODIPINE BESYLATE 5 MG TABS 1 tablet by mouth daily AMLODIPINE BESYLATE 75850004697 No Longer Active Jillina Frazell CORE SUCKER Active AMITRIPTYLINE HCL 100 MG TAB one at hs AMITRIPTYLINE HCL 91614638256 No Longer Active Vishal Hui MD Active TRAZODONE HCL 100 MG TAB take 1 at bedtime TRAZODONE HCL 66753316398 No Longer Active Vishal Hui MD Active VYVANSE 40 MG CAPS 1 daily, LISDEXAMFETAMINE DIMESYLATE 53395127915 No Longer Active Vishal Hui MD Active IBUPROFEN 600 MG TAB 1 po TID PRN IBUPROFEN 75906324290 No Longer Active Vishal Hui MD Active PROZAC 20 MG CAP Take one by mouth daily FLUOXETINE HCL 10125891077 No Longer Active Vishal Hui MD Active BACTRIM DS 800-160 MG TABS 1 pill by mouth twice daily SULFAMETHOXAZOLE-TRIMETHOPRIM 99660113021 No Longer Active Sahara Rodriguez MD PhD Active DIFLUCAN 150 MG TAB 1 tablet by mouth daily FLUCONAZOLE 43563474029 No Longer Active Vishal Hui MD Active TIZANIDINE HCL 4 MG TABS 1 po q6hr PRN Muscle Spasm/Back Pain TIZANIDINE HCL 67414180214 Active TAMARA Casey Active CLINDAMYCIN HCL 150 MG CAPS 1 four times a day CLINDAMYCIN HCL 71982081624 No Longer Active Neeraj Collins MD Active KEFLEX 500 MG ORAL CAPS 1 cap QID by mouth CEPHALEXIN 27321840275 No Longer Active Neeraj Collins MD Active DIFLUCAN 150 MG TABS 1 pill every other day x 2 doses FLUCONAZOLE 17662373728 No Longer Active Sahara Rodriguez MD PhD Active MELATONIN 3 MG CAPS 2 po q hs MELATONIN 81446724934 No Longer Active Sahara Rodriguez MD PhD Active MULTIVITAMINS CAPS Take one by mouth daily MULTIPLE VITAMIN 40137214660 No Longer Active Sahara Rodriguez MD PhD Active BACTRIM DS 800-160 MG TAB 1 tab by mouth twice daily TRIMETHOPRIM-SULFAMETHOXAZOLE 86249946962 No Longer Active Sahara Rodriguez MD PhD Active [facility] PROBIOTIC ORAL CHEW 2 daily po PROBIOTIC PRODUCT 42870180700 No Longer Active Sahara Rodriguez MD PhD Active BACTRIM DS 800-160 MG TABS 1 po BID x 7 days SULFAMETHOXAZOLE-TRIMETHOPRIM 84956253237 No Longer Active Vishal Hui MD Active CHANTIX STARTING MONTH EARNEST 0.5 MG X 11 & 1 MG X 42 TABS 0.5mg daily for 3 days , then 0.5mg BID for 4 days, then 1mg BID VARENICLINE TARTRATE 69707271068 No Longer Active Lisette Scarrow, RMA Active VERAPAMIL HCL CR 120 MG TAB CR 1 po bid VERAPAMIL HCL 88497288867 No Longer Active Vishal Hui MD Active METOPROLOL SUCCINATE 50 MG TB24 1 tablet by mouth daily METOPROLOL SUCCINATE 55581479753 No Longer Active Vishal Hui MD Active SAPHRIS 10 MG SUBL 1 tab po bid ASENAPINE MALEATE 97690604074 No Longer Active Vishal Hui MD Active LISINOPRIL 20 MG TABS 1 tab po qd LISINOPRIL 51143248446 No Longer Active Vishal Hui MD Active LATUDA 20 MG TABS Take one by mouth daily LURASIDONE HCL 62174044064 No Longer Active Vishal Hui MD Active TRAZODONE HCL 50 MG TABS 1/2 tab po qd prn for anxiety TRAZODONE HCL 96671511668 No Longer Active Vishal Hui MD Active OMEPRAZOLE 20 MG TBEC 1 po q a.m. 30min prior to first food intake OMEPRAZOLE 59756822388 Active TAMARA Casey Active RANITIDINE HCL 150 MG CAPS 1 twice a day RANITIDINE HCL 22424643155 Active Lynda Xiao LPN Active LINZESS 290 MCG CAPS Take one by mouth daily LINACLOTIDE 34107098856 No Longer Active Vishal Hui MD Active SAPHRIS 5 MG SUBL 1 tab po qd ASENAPINE MALEATE 03472733524 No Longer Active Vishal Hui MD Active ZALEPLON 10 MG CAPS 1 cap po every other night ZALEPLON 82314176100 No Longer Active Vishal Hui MD Active LYRICA 50 MG CAPS 1 tab po TID PREGABALIN 32160801266 No Longer Active Vishal Hui MD Active LORATADINE 10 MG TABS 1 tab po qd LORATADINE 78839724975 No Longer Active Vishal Hui MD Active VERAPAMIL HCL ER 180 MG CR-TABS 1 tab po bid VERAPAMIL HCL 13579186835 No Longer Active Vishal Hui MD Active MIRALAX POWD 1 capfull once daily POLYETHYLENE GLYCOL 3350 53640022601 No Longer Active Vishal Hui MD Active PREDNISONE 20 MG TABS 1 tab po qd PREDNISONE 52330542191 No Longer Active Renzo Thornton DO Active LEVOFLOXACIN 500 MG TABS 1 tab po qd LEVOFLOXACIN 53328080624 No Longer Active Renzo Thornton DO Active BUSPIRONE HCL 15 MG TABS 1 tab po TID BUSPIRONE HCL 46557022409 No Longer Active Renzo Thornton DO Active BENZTROPINE MESYLATE 1 MG TABS 1 tab po qd BENZTROPINE MESYLATE 92460205235 No Longer Active Renzo Thornton DO Active ATENOLOL 25 MG TABS 1 tab po qd ATENOLOL 22785608261 No Longer Active Renzo Thorntno DO Active ESCITALOPRAM OXALATE 20 MG TABS 1 tab po qd ESCITALOPRAM OXALATE 65183272985 No Longer Active Renzo Thornton DO Active ADVAIR DISKUS 250-50 MCG/DOSE AEPB 1 puff BID FLUTICASONE-SALMETEROL 51185716809 No Longer Active Renzo Thornton DO Active PREDNISONE 20 MG TAB 2 tabs daily for 3 days, 1 tab daily for 3 days, 1/2 tab daily for 2 days PREDNISONE 33486104814 No Longer Active Vishal Hui MD Active CEFDINIR 300 MG CAPS by mouth twice a day CEFDINIR 46116052507 No Longer Active Vishal Hui MD Active LANSOPRAZOLE 30 MG CPDR 1 cap po qd LANSOPRAZOLE 91882645786 No Longer Active Vishal Hui MD Active BACLOFEN 20 MG TABS 1 tab po tid BACLOFEN 57801154035 No Longer Active Vishal Hui MD Active ADVAIR DISKUS 250-50 MCG/DOSE AEPB 1 puff BID ADVAIR DISKUS 250-50 MCG/DOSE AEPB FLUTICASONE-SALMETEROL Inactive ESCITALOPRAM OXALATE 20 MG TABS 1 tab po qd ESCITALOPRAM OXALATE 20 MG TABS 596946 ESCITALOPRAM OXALATE Inactive ATENOLOL 25 MG TABS 1 tab po qd ATENOLOL 25 MG TABS 717256 ATENOLOL Inactive BENZTROPINE MESYLATE 1 MG TABS 1 tab po qd BENZTROPINE MESYLATE 1 MG TABS 213794 BENZTROPINE MESYLATE Inactive BUSPIRONE HCL 15 MG TABS 1 tab po TID BUSPIRONE HCL 15 MG TABS 574315 BUSPIRONE HCL Inactive LEVOFLOXACIN 500 MG TABS 1 tab po qd LEVOFLOXACIN 500 MG TABS 833027 LEVOFLOXACIN Inactive PREDNISONE 20 MG TABS 1 tab po qd PREDNISONE 20 MG TABS 953499 PREDNISONE Inactive MIRALAX POWD 1 capfull once daily MIRALAX POWD 049875 POLYETHYLENE GLYCOL 3350 Inactive VERAPAMIL HCL ER 180 MG CR-TABS 1 tab po bid VERAPAMIL HCL ER 180 MG CR-TABS VERAPAMIL HCL Inactive LORATADINE 10 MG TABS 1 tab po qd LORATADINE 10 MG TABS 181573 LORATADINE Inactive LYRICA 50 MG CAPS 1 tab po TID LYRICA 50 MG CAPS PREGABALIN Inactive ZALEPLON 10 MG CAPS 1 cap po every other night ZALEPLON 10 MG CAPS 125358 ZALEPLON Inactive SAPHRIS 5 MG SUBL 1 tab po qd SAPHRIS 5 MG SUBL ASENAPINE MALEATE Inactive TRAZODONE HCL 50 MG TABS 1/2 tab po qd prn for anxiety TRAZODONE HCL 50 MG TABS 972970 TRAZODONE HCL Inactive LATUDA 20 MG TABS Take one by mouth daily LATUDA 20 MG TABS LURASIDONE HCL Inactive LISINOPRIL 20 MG TABS 1 tab po qd LISINOPRIL 20 MG TABS 587772 LISINOPRIL Inactive SAPHRIS 10 MG SUBL 1 [...] twice daily BACTRIM DS 800-160 MG TAB 467999 TRIMETHOPRIM-SULFAMETHOXAZOLE Inactive MULTIVITAMINS CAPS Take one by mouth daily MULTIVITAMINS CAPS MULTIPLE VITAMIN Inactive MELATONIN 3 MG CAPS 2 po q hs MELATONIN 3 MG CAPS 362314 MELATONIN Inactive KEFLEX 500 MG ORAL CAPS 1 cap QID by mouth KEFLEX 500 MG ORAL CAPS 903918 CEPHALEXIN Inactive CLINDAMYCIN HCL 150 MG CAPS 1 four times a day CLINDAMYCIN HCL 150 MG CAPS 19740326 CLINDAMYCIN HCL Inactive DIFLUCAN 150 MG TAB 1 tablet by mouth daily DIFLUCAN 150 MG TAB 649834 FLUCONAZOLE Inactive PROZAC 20 MG CAP Take one by mouth daily PROZAC 20 MG CAP 074135 FLUOXETINE HCL Inactive IBUPROFEN 600 MG TAB 1 po TID PRN IBUPROFEN 600 MG TAB 541244 IBUPROFEN Inactive VYVANSE 40 MG CAPS 1 daily, VYVANSE 40 MG CAPS LISDEXAMFETAMINE DIMESYLATE Inactive TRAZODONE HCL 100 MG TAB take 1 at bedtime TRAZODONE HCL 100 MG TAB 277517 TRAZODONE HCL Inactive AMITRIPTYLINE HCL 100 MG TAB one at hs AMITRIPTYLINE HCL 100 MG TAB 951659 AMITRIPTYLINE HCL Inactive AMLODIPINE BESYLATE 5 MG TABS 1 tablet by mouth daily AMLODIPINE BESYLATE 5 MG TABS 958906 AMLODIPINE BESYLATE Inactive LATUDA 80 MG TABS Take one by mouth daily LATUDA 80 MG TABS LURASIDONE HCL Inactive SAPHRIS 5 MG SUBL 1 po bid SAPHRIS 5 MG SUBL ASENAPINE MALEATE Inactive PREDNISONE 20 MG TAB 2 tabs daily for 4 days, 1 tab daily for 4 days, 1/2 tab daily for 4 days PREDNISONE 20 MG TAB 058798 PREDNISONE Inactive AMBIEN 5 MG ORAL TABS 1 tab at bedtime AMBIEN 5 MG ORAL TABS 089452 ZOLPIDEM TARTRATE Inactive PROZAC 20 MG ORAL CAPS 1 tab daily PROZAC 20 MG ORAL CAPS 623324 FLUOXETINE HCL Inactive ABILIFY 15 MG ORAL TABS 1 tab daily ABILIFY 15 MG ORAL TABS 917065 ARIPIPRAZOLE Inactive METOPROLOL TARTRATE 50 MG TAB 1 po bid METOPROLOL TARTRATE 50 MG TAB 307267 METOPROLOL TARTRATE Inactive TRAMADOL HCL 50 MG TABS 1-2 po TID PRN Pain TRAMADOL HCL 50 MG TABS 214535 TRAMADOL HCL Inactive PIROXICAM 20 MG CAPS 1 cap po qd PRN Pain PIROXICAM 20 MG CAPS 287128 PIROXICAM Inactive MINIPRESS 2 MG CAPS 4 cap po at night MINIPRESS 2 MG CAPS 805356 PRAZOSIN HCL Inactive MIRALAX PACK 1 po qd PRN Constipation MIRALAX PACK 485506 POLYETHYLENE GLYCOL 3350 Inactive METOPROLOL TARTRATE 25 MG ORAL TABS 1/2 tablet twice daily for heart rate and blood pressure METOPROLOL TARTRATE 25 MG ORAL TABS 720709 METOPROLOL TARTRATE Inactive VALIUM 5 MG TAB Take 1-2 tablets daily VALIUM 5 MG TAB 137722 DIAZEPAM Inactive FLAGYL 500 MG TAB 1 tablet by mouth bid FLAGYL 500 MG TAB 436122 METRONIDAZOLE Inactive DICLOFENAC POTASSIUM TABS Take 1 tablet twice a day (pt. is not sure of the dose.) DICLOFENAC POTASSIUM TABS DICLOFENAC POTASSIUM TABS Inactive ZITHROMAX Z-EARNEST 250 MG TABS 2 today and then 1 daily for 4 days ZITHROMAX Z-EARNEST 250 MG TABS 7061209 AZITHROMYCIN Inactive PREDNISONE 20 MG TABS 2 daily for 5 days then 1 daily for 5 days PREDNISONE 20 MG TABS 672276 PREDNISONE Inactive PROAIR HFA 108 (90 BASE) MCG/ACT AERS 2 puffs four times a day as needed 2015 PROAIR HFA 108 (90 BASE) MCG/ACT AERS ALBUTEROL SULFATE Inactive HYDROCODONE-ACETAMINOPHEN 5-325 MG TABS 1 to 2 four times a day as needed for pain use until can be seen by specialist HYDROCODONE- ACETAMINOPHEN 5-325 MG TABS 649767 HYDROCODONE-ACETAMINOPHEN Inactive TESSALON PERLES 100 MG CAP 1 to 2 tablets by mouth 3 times daily as needed for cough TESSALON PERLES 100 MG CAP 707015 BENZONATATE Inactive CHANTIX STARTING MONTH EARNEST 0.5 [...] Pain 2015 DICLOFENAC SODIUM 50 MG TBEC 122962 DICLOFENAC SODIUM Inactive TOPAMAX 50 MG ORAL TABS 1 tab twice daily TOPAMAX 50 MG ORAL TABS 907434 TOPIRAMATE Inactive VIIBRYD 10 MG ORAL TABS Take 1 tablet once a day VIIBRYD 10 MG ORAL TABS VILAZODONE HCL Inactive LEVOFLOXACIN 500 MG ORAL TABS po daily LEVOFLOXACIN 500 MG ORAL TABS 710938 LEVOFLOXACIN Inactive METHYLPREDNISOLONE 4 MG ORAL TABS po daily METHYLPREDNISOLONE 4 MG ORAL TABS 840584 METHYLPREDNISOLONE Inactive OXYCODONE HCL ER 10 MG ORAL T12A 1/2 tab by mouth every 4 hours prn OXYCODONE HCL ER 10 MG ORAL T12A OXYCODONE HCL Inactive FLAGYL 500 MG TAB 1 tablet by mouth bid FLAGYL 500 MG TAB 121467 METRONIDAZOLE Inactive MONISTAT 7 COMBO PACK WOODROW 100 & 2 MG-% (9GM) VAG KIT 1 applicatorful per vagina q pm x 7 MONISTAT 7 COMBO PACK WOODROW 100 & 2 MG-% (9GM) VAG KIT MICONAZOLE NITRATE Inactive BACTRIM DS 800-160 MG TABS 1 twice a day BACTRIM DS 800-160 MG TABS 689614 SULFAMETHOXAZOLE-TRIMETHOPRIM Inactive TRAMADOL HCL 50 MG TABS 1/2-1 tab TID PRN TRAMADOL HCL 50 MG TABS 690387 TRAMADOL HCL Inactive ABILIFY MAINTENA 400 MG IM SUSR 400mg injection every 26 days ABILIFY MAINTENA 400 MG IM SUSR ARIPIPRAZOLE Inactive KLONOPIN 1 MG ORAL TABS 1 tab po TID KLONOPIN 1 MG ORAL TABS 125890 CLONAZEPAM Inactive ADVAIR DISKUS 250-50 MCG/DOSE INH AEPB 1 puff twice a day for asthma ADVAIR DISKUS 250-50 MCG/DOSE INH AEPB FLUTICASONE- SALMETEROL Inactive BENADRYL 25 MG CAP 4 po at bedtime for insomnia BENADRYL 25 MG CAP DIPHENHYDRAMINE HCL Inactive PREDNISONE 20 MG TABS 2 daily for 5 days then 1 daily for 5 days PREDNISONE 20 MG TABS 202679 PREDNISONE Inactive HYDROCODONE-ACETAMINOPHEN 5-325 MG ORAL TABS 1 tab two times a day HYDROCODONE-ACETAMINOPHEN 5-325 MG ORAL TABS 342258 HYDROCODONE-ACETAMINOPHEN Inactive ZITHROMAX Z-EARNEST 250 MG TABS 2 today and then 1 daily for 4 days ZITHROMAX Z-EARNEST 250 MG TABS 2777597 AZITHROMYCIN Inactive GUAIFENESIN-CODEINE 100-10 MG/5ML SYRP 5ml every 4 to 6 hours as needed for cough GUAIFENESIN-CODEINE 100-10 MG/5ML SYRP 432169 GUAIFENESIN-CODEINE Inactive HALOPERIDOL 10 MG ORAL TABS 1 tab q.d HALOPERIDOL 10 MG ORAL TABS 356981 HALOPERIDOL Inactive ASPIRIN 325 MG ORAL TABS 1 tab q.d ASPIRIN 325 MG ORAL TABS 916820 ASPIRIN Inactive FLUTICASONE PROPIONATE 50 MCG/ACT SUSP 2 sprays each nostril daily before bed. FLUTICASONE PROPIONATE 50 MCG/ACT SUSP [id number] FLUTICASONE PROPIONATE Inactive ZOFRAN 4 MG TABS 1 po q6hr PRN Nausea ZOFRAN 4 MG TABS [id number] ONDANSETRON HCL Inactive KEFLEX 500 MG CAP 1 po qid KEFLEX 500 MG CAP 034084 CEPHALEXIN Inactive ACETAMINOPHEN-CODEINE 120-12 MG/5ML SOLN 5 ml by mouth every 4-6 hours if needed for cough ACETAMINOPHEN-CODEINE 120-12 MG/5ML SOLN [id number] ACETAMINOPHEN-CODEINE Inactive PREDNISONE 20 MG TAB 1 tablet daily x 4 days PREDNISONE 20 MG TAB [id number] PREDNISONE Inactive TROPICAMIDE 0.5 % OPHTH SOLN 1 drop PRN eye spasms TROPICAMIDE 0.5 % OPHTH SOLN 991474 TROPICAMIDE Inactive LEVAQUIN 500 MG TABS 1 daily for infection LEVAQUIN 500 MG TABS 337530 LEVOFLOXACIN Inactive PREDNISONE 10 MG TABS 2 daily for 5 days then 1 daily for 5 days PREDNISONE 10 MG TABS [id number] PREDNISONE Inactive EQ NICOTINE 21 MG/24HR TRANS [...] for cough TESSALON PERLES 100 MG CAPS 110010 BENZONATATE Inactive AMITIZA 8 MCG ORAL CAPS [...] twice a day MUPIROCIN 2 % OINT 069496 MUPIROCIN Inactive BACTRIM DS 800-160 MG TAB Take one (1) tablet by mouth twice a day for 5 days BACTRIM DS 800-160 MG TAB [id number] TRIMETHOPRIM- SULFAMETHOXAZOLE Inactive LACTULOSE 10 GM/15ML ORAL SOLN 30mL oral BID for IBS-C LACTULOSE 10 GM/15ML ORAL SOLN 781950 LACTULOSE Inactive MIRALAX ORAL POWD 17GMS DAILY IN WATER MIRALAX ORAL POWD 197227 POLYETHYLENE GLYCOL 3350 Inactive CEFDINIR 300 MG CAPS by mouth twice a day CEFDINIR 300 MG CAPS 353270 CEFDINIR Inactive PREDNISONE 20 MG TAB 2 tabs daily for 3 days, 1 tab daily for 3 days, 1/2 tab daily for 2 days PREDNISONE 20 MG TAB 802165 PREDNISONE Inactive BACTRIM DS 800-160 MG TABS 1 po BID x 7 days BACTRIM DS 800-160 MG TABS 19820521 SULFAMETHOXAZOLE-TRIMETHOPRIM Inactive DIFLUCAN 150 MG TABS 1 pill every other day x 2 doses DIFLUCAN 150 MG TABS 079980 FLUCONAZOLE Inactive BACTRIM DS 800-160 MG TABS 1 pill by mouth twice daily BACTRIM DS 800-160 MG TABS 19820521 SULFAMETHOXAZOLE-TRIMETHOPRIM Inactive KEFLEX 500 MG CAP 1 po TID x 10 days KEFLEX 500 MG CAP 181652 CEPHALEXIN Inactive Advance Directives Directive Description Start [...] % 11.0-15.0 platelet count 443 THOUSAND/UL 10*3/mm3 518-551 5010/03/01 mean platelet volume 8.2 fL 7.5-12.5 leukocyte [...] % 11.0-15.0 platelet count 349 THOUSAND/UL 10*3/mm3 352-142 8912/04/12 mean platelet volume 8.4 fL 7.5-12.5 Lab Report: CBC W/DIFF, Comp. Metabolic Panel, HGBA1C, Magnesium - Chemistry sodium, serum 141 mmol/L 107-614 5852/07/24 carbon dioxide, venous blood 27.8 mmol/L 21.0-32.0 [...] 369 10^3/MM^3 10*3/mm3 142-424 Lab Report: Chlamydia/GC APTIMA/96540 - Lab chlamydia DNA probe NOT DETECTED NOT DETECTED Lab Report: Chlamydia/GC APTIMA/05359 - Microbiology Neisseria gonorrhoeae DNA probe NOT DETECTED NOT DETECTED Lab Report: Chlamydia/GC APTIMA/41757, Urinalysis, Complete, with Reflex ... - Lab chlamydia DNA probe NOT DETECTED NOT DETECTED Lab Report: Chlamydia/GC APTIMA/66062, Urinalysis, Complete, with Reflex ... - Microbiology Neisseria gonorrhoeae DNA probe NOT DETECTED NOT DETECTED Lab Report: Chlamydia/GC APTIMA/03481, Urinalysis, Complete, with Reflex ... - Urinalysis microalbumin/total urine volume 2 mg/L Units converted. See lab report for original value. microalbumin/creatinine ratio, urine 9 MCG/MG CREAT mg/L <30 Lab Report: Comp. Metabolic Panel - Chemistry sodium, serum 140 mmol/L 794-604 8120/06/28 carbon dioxide, venous blood 23.8 mmol/L 21.0-32.0 potassium, serum 3.8 mmol/L 3.5-5.2 chloride, serum 104 mmol/L 98-107 blood glucose 78 mg/dL 65-110 urea nitrogen, blood 12 mg/dL 7-18 creatinine, serum 0.86 mg/dL 0.55-1.30 alanine aminotransferase (SGPT), serum 38 U/L 12-78 aspartate aminotransferase (SGOT), serum 17 U/L 15-37 calcium, serum 9.3 mg/dL 8.5-10.1 bilirubin, serum, total 0.20 mg/dL 0.00-1.00 urea nitrogen, blood 13 mg/dL [...] sodium, serum 140 mmol/L 136-145 Lab Report: HEPATITIS PANEL, ACUTE [...] 1+ Negative glucose, urine, semiquantitative Negative Negative appearance, [...] negative Encounters Code Encounter Date Provider Facility CPT-23008 Level 3 Est. Patient 11:36:47 [facility] Patient 10:53:17 CD[facility] Est. Patient 11:08:35 CDT Suzan [facility] CPT-42629 Level 3 Est. Patient 15:55:20 CDT Suzan [facility]-23496 Level 4 Est. Patient 10:49:34 CDT Suzan [facility]-33802 Level 3 Est. Patient 10:00:25 CDT Suzan [facility] CPT-01163 Level 3 Est. Patient 10:29:30 CDT Suzan [facility] CPT-08035 Level 3 Est. Patient 11:04:38 CDT Renzo Thornton [facility]-71277 Level 3 Est. Patient 11:15:58 TRACK SERVICE WORKER Renzo Thornton [facility] CPT-44799 Level 3 Est. Patient 15:28:23 TRACK SERVICE WORKER Suzan Boo [facility] CPT-78912 Level 4 Est. Patient 10:20:54 TRACK SERVICE WORKER Suzan Boo [facility] CPT-53668 Level 3 Est. Patient 11:47:37 TRACK SERVICE WORKER Ahmet Carbajal MD [facility]-01427 Level 3 Est. Patient 10:40:11 TRACK SERVICE WORKER Ahmet Carbajal MD [facility] CPT-61089 Level 3 Est. Patient 15:07:06 TRACK SERVICE WORKER Neeraj Collins MD [facility] CPT-81650 Level 4 Est. Patient 14:45:00 TRACK SERVICE WORKER Ahmet Carbajal MD [facility] CPT-05914 Level 3 Est. Patient 13:59:59 CDT Luigi Martínez [facility] CPT-99889 Level 3 Est. Patient 18:18:53 CDT Neeraj Collins MD [facility] CPT-94077 Level 3 Est. Patient 15:50:44 CDT Vishal Hui MD [facility] CPT-28703 Level 3 Est. Patient 11:36:17 CDT Ahmet Carbajal MD [facility] CPT-60741 Level 3 Est. Patient 13:29:16 CDT Vishal Hui MD [facility] CPT-45763 Level 3 Est. Patient 14:27:52 CDT Neeraj Collins MD [facility] CPT-83288 Level 3 Est. Patient 08:56:03 CDT Luigi Martínez [facility] CPT-44900 Level 4 Est. Patient 12:11:48 CDT Fabiola Johnson [facility] CPT-43040 Level 3 New Patient 16:53:37 CDT Albert Caldera MD [facility] CPT-68390 Level 3 Est. Patient 11:25:49 CDT Renzo Thornton DO [facility] CPT-50872 Level 3 Est. Patient 15:22:01 CDT Ahmet Carbajal MD [facility] CPT-94896 Level 4 Est. Patient 09:00:51 TRACK SERVICE WORKER Vishal Hui MD [facility] CPT-11588 Level 3 Est. Patient 11:37:33 TRACK SERVICE WORKER Vishal Hui MD [facility] CPT-91765 Level 3 Est. Patient 08:41:09 TRACK SERVICE WORKER Vishal Hui MD [facility] CPT-87698 Level 4 Est. Patient 10:19:35 TRACK SERVICE WORKER Vishal Hui MD [facility] CPT-62925 Level 3 Est. Patient 13:35:45 CDT Vishal Hui MD [facility] CPT-57997 Level 4 Est. Patient 10:08:37 CDT Vishal Hui MD [facility] CPT-98473 Level 3 Est. Patient 11:22:10 CDT Vishal Hui MD [facility] CPT-14534 Level 3 Est. Patient 11:03:32 CDT Sahara Rodriguez MD [facility]-26523 Level 3 Est. Patient 09:41:35 CDT Vishal Hui MD [facility] CPT-61455 Level 3 Est. Patient 12:00:41 CDT Neeraj Collins MD [facility] CPT-44730 Level 3 Est. Patient 09:16:24 CDT Vishal Hui MD [facility] CPT-95621 Level 4 Est. Patient 13:59:09 CDT Neeraj Collins MD [facility] CPT-98790 Level 3 Est. Patient 15:19:43 CDT Renzo Thornton DO [facility] CPT-02576 Level 3 Est. Patient 18:10:26 CDT Sahara Rodriguez MD [facility]-36474 Level 3 Est. Patient 14:49:50 CDT Vishal Hui MD [facility] CPT-58381 Level 4 Est. Patient 18:41:46 CDT Neeraj Collins MD [facility] CPT-85796 Level 4 Est. Patient 09:18:38 TRACK SERVICE WORKER Vishal Hui MD [facility] CPT-75278 Level 3 Est. Patient 14:43:55 TRACK SERVICE WORKER Vishal Hui MD [facility] CPT-34193 Level 3 Est. Patient 15:26:33 TRACK SERVICE WORKER Sahara [facility] C[facility]-77286 Level 3 Est. Patient 10:32:14 TRACK SERVICE WORKER Vishal Hui MD [facility] CPT-72341 Level 3 Est. Patient 15:12:52 TRACK SERVICE WORKER Vishal Hui MD [facility] CPT-79722 Level 4 Est. Patient 09:19:27 CDT Vishal Hui MD [facility] CPT-54689 Level 3 Est. Patient 15:53:00 CDT Renzo Thornton [facility] CPT-47926 Level 3 Est. Patient 15:50:30 CDT Renzo Thornton [facility] CPT-29321 Level 3 Est. Patient 16:55:24 CDT Vishal Hui MD [facility] Procedures Code Procedure Name Date Entry Date Standard Description CPT-78207 UA Dip Auto (Floor Use Only) 11:36:47 CDT CPT-74694 Venipuncture Draw Fee 10:53:17 CDT CPT-14684 EKG Trac and Interp - XRAY USE ONLY 15:59:30 CDT 09/13 CPT-64758 Chest 1V Frontal - XRAY USE ONLY 15:59:30 CDT CPT-85194 Venipuncture Draw Fee 15:44:02 CDT CPT-65006 Venipuncture Draw Fee 08:41:12 CDT CPT-85823 Abd compl w upright - XRAY USE ONLY 10:27:59 CDT 06/28 CPT-12490 Smoking Cessation counseling 11:15:58 TRACK SERVICE WORKER CPT-G0439 [facility] Annual Wellness Exam 09:30:58 TRACK SERVICE WORKER CPT-25121 TSH - LAB USE ONLY 08:50:26 TRACK SERVICE WORKER CPT-65163 CBC - LAB USE ONLY 08:50:26 TRACK SERVICE WORKER CPT-38095 Venipuncture Draw Fee 08:50:26 TRACK SERVICE WORKER CPT-65504 Abx/Therapy Injection 17:34:30 TRACK SERVICE WORKER CPT-97183 Nexplanon Removal with Reinsertion 14:09:32 CDT CPT-J7307 Nexplanon (Implant) 14:09:32 CDT CPT-OV Office Visit 14:09:32 CDT CPT-62160 UA w micro - LAB USE ONLY 16:21:13 CDT CPT-64739 Wet Mount - LAB USE ONLY 16:21:13 CDT CPT-32195 First Vx - Ix admin for Medicare patients 14:37:47 CDT CPT-30880 Fluzone Preservative Free Intramuscular Suspension 14:37 :47 CDT CPT-07103 Abx/Therapy Injection 13:54:22 CDT CPT-37327 Abx/Therapy Injection 08:47:09 CDT CPT-11247 Abx/Therapy Injection 13:29:56 CDT CPT-34366 Abx/Therapy Injection 08:36:16 CDT CPT-09168 Wet Mount - LAB USE ONLY 17:44:58 CDT CPT-97505 UA w micro - LAB USE ONLY 17:44:58 CDT CPT-92838 CMP - LAB USE ONLY 17:44:58 CDT CPT-23169 Venipuncture Draw Fee 17:44:58 CDT CPT-78621 Cervical Min 4V - XRAY USE ONLY 09:01:40 CDT CPT-52345 Chest 2V Frontal and Lat - XRAY USE ONLY 11:06:31 CDT CPT-10932 EKG Trac and Interp - XRAY USE ONLY 11:31:43 CDT 08/26 CPT-J3420 Vitamin B12 1000mcg (Cyanocobalamin) 08:10:26 TRACK SERVICE WORKER 04/12 CPT-46140 Abx/Therapy Injection 08:10:26 TRACK SERVICE WORKER CPT-G0438 Initial Annual Wellness Exam 19:01:01 TRACK SERVICE WORKER CPT-J3420 Vitamin B12 1000mcg (Cyanocobalamin) 16:57:46 CDT 08/14 CPT-15477 Recombivax HB Injection Suspension 5 MCG/0.5ML 08:37:50 TRACK SERVICE WORKER CPT-53225 Immunization Single Admin 08:37:50 TRACK SERVICE WORKER CPT-J3420 Vitamin B12 1000mcg (Cyanocobalamin) 08:32:16 TRACK SERVICE WORKER 03/11 CPT-31259 Abx/Therapy Injection 08:32:16 TRACK SERVICE WORKER CPT-99401 Chest 2V Frontal and Lat 11:46:38 TRACK SERVICE WORKER CPT-45283 Venipuncture Draw Fee 09:12:45 TRACK SERVICE WORKER CPT-J3420 Vitamin B12 1000mcg (Cyanocobalamin) 08:50:15 TRACK SERVICE WORKER 02/08 CPT-22812 Abx/Therapy Injection 08:50:15 TRACK SERVICE WORKER CPT-Cryo Cryotherapy 10:19:35 TRACK SERVICE WORKER CPT-000 Give Appropriate Flu Vaccine 09:22:16 CDT CPT-J3420 Vitamin B12 1000mcg (Cyanocobalamin) 19:08:57 CDT 01/11 CPT-88230 Abx/Therapy Injection 19:08:57 CDT CPT-J3420 Vitamin B12 1000mcg (Cyanocobalamin) 08:19:08 CDT 12/11 CPT-17789 Abx/Therapy Injection 08:19:08 CDT CPT-J3420 Vitamin B12 1000mcg (Cyanocobalamin) 14:48:00 CDT 11/09 CPT-39387 Abx/Therapy Injection 14:47:59 CDT CPT-J3420 Vitamin B12 1000mcg (Cyanocobalamin) 08:34:04 CDT 10/09 CPT-84066 Abx/Therapy Injection 08:34:04 CDT CPT-J3420 Vitamin B12 1000mcg (Cyanocobalamin) 09:18:52 CDT 09/11 CPT-70192 Abx/Therapy Injection 09:18:52 CDT CPT-J3420 Vitamin B12 1000mcg (Cyanocobalamin) 08:35:44 CDT 09/04 CPT-77505 Abx/Therapy Injection 08:35:44 CDT CPT-78747 Immunization Single Admin 11:07:16 CDT CPT-79508 Hepatitis B adult IM 11:07:16 CDT CPT-J3420 Vitamin B12 1000mcg (Cyanocobalamin) 11:00:49 CDT 08/28 CPT-J1040 Depo Medrol 80 mg (Methyl Prednisolone Acetate) 11:00: 49 CDT CPT-91941 Abx/Therapy Injection 11:00:49 CDT CPT-J1040 Depo Medrol 80 mg (Methyl Prednisolone Acetate) 09:16: 23 CDT CPT-J3420 Vitamin B12 1000mcg (Cyanocobalamin) 08:27:05 CDT 08/20 CPT-37454 Abx/Therapy Injection 08:27:05 CDT CPT-10856 Recombivax HB Injection Suspension 5 MCG/0.5ML 10:00:41 CDT CPT-25278 Administration single or combination vaccine inc oral 10 :00:41 CDT CPT-92883 Sono transvag pelvis non OB uterus ovaries cervix 16:36: 57 CDT CPT-56877 LS spine comp w obliq 09:50:55 TRACK SERVICE WORKER CPT-00223 Abd compl w upright 09:50:55 TRACK SERVICE WORKER CPT-J1100 Decadron 4mg (Dexamethasone) 15:51:24 TRACK SERVICE WORKER CPT-J1030 Depo Medrol 40 mg (Methyl Prednisolone Acetate) 15:51: 24 TRACK SERVICE WORKER CPT-01361 Abx/Therapy Injection 15:51:24 TRACK SERVICE WORKER CPT-J1100 Decadron 4mg (Dexamethasone) 15:26:33 TRACK SERVICE WORKER CPT-J1030 Depo Medrol 40 mg (Methyl Prednisolone Acetate) 15:26: 33 TRACK SERVICE WORKER CPT-81172 Sono retroperitoneal complete kidneys and bladder 17:15: 30 CDT CPT-47869 Abd compl w upright 16:09:25 CDT CPT-J1100 Decadron 8mg (Dexamethasone) 17:07:57 CDT CPT-55712 Abx/Therapy Injection 17:07:57 CDT CPT-J1100 Decadron 8mg (Dexamethasone) 16:55:24 CDT CPT-42983 Chest 2V Frontal and Lat 16:32:44 CDT
--- OUTSIDE RECORDS SUMMARY | 2016-11-05 00:26 | XMS REPORT | Clinical Summary ---
Author Author Admin, E Organization [facility] Address Unknown Phone Unavailable Allergies, Adverse Reactions, [...] Asthma, unspecified Anxiety Disorder 300.00 Active Vishal uHi MD Anxiety state, unspecified Depression 311 Active [...] 1 four times a day CLINDAMYCIN HCL 54681695818 No Longer Active Neeraj Collins MD Active KEFLEX 500 MG ORAL CAPS 1 cap QID by mouth CEPHALEXIN 65664618941 No Longer Active Neeraj Collins MD Active DIFLUCAN 150 MG TABS 1 pill every other day x 2 doses FLUCONAZOLE 15267073817 No Longer Active Sahara Rodriguez MD PhD Active MELATONIN 3 MG CAPS 2 po q hs MELATONIN 70255891435 No Longer Active Sahara Rodriguez MD PhD Active MULTIVITAMINS CAPS Take one by mouth daily MULTIPLE VITAMIN 69277482336 No Longer Active Sahara Rodriguez MD PhD Active BACTRIM DS 800-160 MG TAB 1 tab by mouth twice daily TRIMETHOPRIM-SULFAMETHOXAZOLE 33246522588 No Longer Active Sahara Rodriguez MD PhD Active [facility] PROBIOTIC ORAL CHEW 2 daily po PROBIOTIC PRODUCT 47461030955 No Longer Active Sahara Rodriguez MD PhD Active IBUPROFEN 600 MG TAB 1 po TID PRN IBUPROFEN 36516838569 Active Luigi Martínez [employer]ER Active BACTRIM DS 800-160 MG TABS 1 po BID x 7 days SULFAMETHOXAZOLE-TRIMETHOPRIM 02029048349 No Longer Active Vishal Hiu MD Active CHANTIX STARTING MONTH EARNEST 0.5 MG X 11 & 1 MG X 42 TABS 0.5mg daily for 3 days , then 0.5mg BID for 4 days, then 1mg BID VARENICLINE TARTRATE 81796394322 No Longer Active TAMARA Gray Active METOPROLOL TARTRATE 50 MG TAB 1 po bid METOPROLOL TARTRATE 13481035370 Active Vishal Hui MD Active TRAZODONE HCL 100 MG TAB take 1 at bedtime TRAZODONE HCL 91730030468 Active Vishal Hui MD Active AMLODIPINE BESYLATE 5 MG TABS 1 tablet by mouth daily AMLODIPINE BESYLATE 48887016194 Active Vishal Hui MD Active VERAPAMIL HCL CR 120 MG TAB CR 1 po bid VERAPAMIL HCL 51277634099 No Longer Active Vishal Hui MD Active METOPROLOL SUCCINATE 50 MG TB24 1 tablet by mouth daily METOPROLOL SUCCINATE 44569621639 No Longer Active Vishal Hui MD Active TRAMADOL HCL 50 MG TABS 1-2 po TID PRN Pain TRAMADOL HCL 88183495330 Active Vishal Hui MD Active SAPHRIS 5 MG SUBL 1 po bid ASENAPINE MALEATE 47777391302 Active Vishal Hui MD Active SAPHRIS 10 MG SUBL 1 tab po bid ASENAPINE MALEATE 41521781751 No Longer Active Vishal Hui MD Active LISINOPRIL 20 MG TABS 1 tab po qd LISINOPRIL 44772484623 No Longer Active Vishal Hui MD Active BENADRYL 25 MG CAP 2 po tid prn anxiety DIPHENHYDRAMINE HCL 29218823672 Active Vishla Hui MD Active LATUDA 80 MG TABS Take one by mouth daily LURASIDONE HCL 23223481337 Active Vishal Hui MD Active LATUDA 20 MG TABS Take one by mouth daily LURASIDONE HCL 96497351348 No Longer Active Vishal Hui MD Active TRAZODONE HCL 50 MG TABS 1/2 tab po qd prn for anxiety TRAZODONE HCL 62623817495 No Longer Active Vishal Hui MD Active PIROXICAM 20 MG CAPS 1 cap po qd PRN Pain PIROXICAM 31204392638 Active Vishal Hui MD Active OMEPRAZOLE 20 MG TBEC 1 po q a.m. 30min prior to first food intake OMEPRAZOLE 21396373067 Active Vishal Hui MD Active RANITIDINE HCL 150 MG CAPS 1 twice a day RANITIDINE HCL 40203579424 Active Vishal Hui MD Active PROZAC 20 MG CAP Take one by mouth daily FLUOXETINE HCL 26077050675 Active Vishal Hui MD Active LINZESS 290 MCG CAPS Take one by mouth daily LINACLOTIDE 85390020046 Active Vishal Hui MD Active SAPHRIS 5 MG SUBL 1 tab po qd ASENAPINE MALEATE 37820993237 No Longer Active Vishal Hui MD Active ZALEPLON 10 MG CAPS 1 cap po every other night ZALEPLON 86703381405 No Longer Active Vishal Hui MD Active LYRICA 50 MG CAPS 1 tab po TID PREGABALIN 99799396743 No Longer Active Vishal Hui MD Active LORATADINE 10 MG TABS 1 tab po qd LORATADINE 33459268006 No Longer Active Vishal Hui MD Active VERAPAMIL HCL ER 180 MG CR-TABS 1 tab po bid VERAPAMIL HCL 30201384331 No Longer Active Vishal Hui MD Active MIRALAX POWD 1 capfull once daily POLYETHYLENE GLYCOL 3350 24521726478 No Longer Active Vishal Hui MD Active PREDNISONE 20 MG TABS 1 tab po qd PREDNISONE 53678238967 No Longer Active Renzo Thornton DO Active LEVOFLOXACIN 500 MG TABS 1 tab po qd LEVOFLOXACIN 25294045890 No Longer Active Renzo Thornton DO Active BUSPIRONE HCL 15 MG TABS 1 tab po TID BUSPIRONE HCL 49801825803 No Longer Active Renzo Thornton DO Active BENZTROPINE MESYLATE 1 MG TABS 1 tab po qd BENZTROPINE MESYLATE 96968302043 No Longer Active Renzo Thornton DO Active ATENOLOL 25 MG TABS 1 tab po qd ATENOLOL 59527562323 No Longer Active Renzo Thornton DO Active ESCITALOPRAM OXALATE 20 MG TABS 1 tab po qd ESCITALOPRAM OXALATE 85054426526 No Longer Active Renzo Thornton DO Active ADVAIR DISKUS 250-50 MCG/DOSE AEPB 1 puff BID FLUTICASONE-SALMETEROL 85429075195 No Longer Active Renzo Thornton DO Active PREDNISONE 20 MG TAB 2 tabs daily for 3 days, 1 tab daily for 3 days, 1/2 tab daily for 2 days PREDNISONE 10642163319 No Longer Active Vishal Hui MD Active CEFDINIR 300 MG CAPS by mouth twice a day CEFDINIR 80229201266 No Longer Active Vishal Hui MD Active LANSOPRAZOLE 30 MG CPDR 1 cap po qd LANSOPRAZOLE 29060335599 No Longer Active Vishal Hui MD Active TOPAMAX 25 MG TABS 1 tab po bid TOPIRAMATE 83414195302 Active Vishal Hui MD Active MINIPRESS 2 MG CAPS 1 cap po at night PRAZOSIN HCL 09292565365 Active Vishal Hui MD Active BACLOFEN 20 MG TABS 1 tab po tid BACLOFEN 08370249579 Active Vishal Hui MD Active ADVAIR DISKUS 250-50 MCG/DOSE AEPB 1 puff BID ADVAIR DISKUS 250-50 MCG/DOSE AEPB FLUTICASONE-SALMETEROL Inactive ESCITALOPRAM OXALATE 20 MG TABS 1 tab po qd ESCITALOPRAM OXALATE 20 MG TABS 344615 ESCITALOPRAM OXALATE Inactive ATENOLOL 25 MG TABS 1 tab po qd ATENOLOL 25 MG TABS 655170 ATENOLOL Inactive BENZTROPINE MESYLATE 1 MG TABS 1 tab po qd BENZTROPINE MESYLATE 1 MG TABS 860987 BENZTROPINE MESYLATE Inactive BUSPIRONE HCL 15 MG TABS 1 tab po TID BUSPIRONE HCL 15 MG TABS 731768 BUSPIRONE HCL Inactive LEVOFLOXACIN 500 MG TABS 1 tab po qd LEVOFLOXACIN 500 MG TABS 462942 LEVOFLOXACIN Inactive PREDNISONE 20 MG TABS 1 tab po qd PREDNISONE 20 MG TABS 434065 PREDNISONE Inactive MIRALAX POWD 1 capfull once daily MIRALAX POWD 350861 POLYETHYLENE GLYCOL 3350 Inactive VERAPAMIL HCL ER 180 MG CR-TABS 1 tab po bid VERAPAMIL HCL ER 180 MG CR-TABS VERAPAMIL HCL Inactive LORATADINE 10 MG TABS 1 tab po qd LORATADINE 10 MG TABS 692296 LORATADINE Inactive LYRICA 50 MG CAPS 1 tab po TID LYRICA 50 MG CAPS PREGABALIN Inactive ZALEPLON 10 MG CAPS 1 cap po every other night ZALEPLON 10 MG CAPS 869695 ZALEPLON Inactive SAPHRIS 5 MG SUBL 1 tab po qd SAPHRIS 5 MG SUBL ASENAPINE MALEATE Inactive TRAZODONE HCL 50 MG TABS 1/2 tab po qd prn for anxiety TRAZODONE HCL 50 MG TABS 527976 TRAZODONE HCL Inactive LATUDA 20 MG TABS Take one by mouth daily LATUDA 20 MG TABS LURASIDONE HCL Inactive LISINOPRIL 20 MG TABS 1 tab po qd LISINOPRIL 20 MG TABS 475012 LISINOPRIL Inactive SAPHRIS 10 MG SUBL 1 [...] po q hs MELATONIN 3 MG CAPS 842934 MELATONIN Inactive KEFLEX 500 MG ORAL CAPS 1 cap QID by mouth KEFLEX 500 MG ORAL CAPS 530666 CEPHALEXIN Inactive CLINDAMYCIN HCL 150 MG CAPS 1 four times a day CLINDAMYCIN HCL 150 MG CAPS 938065 CLINDAMYCIN HCL Inactive CEFDINIR 300 MG CAPS by mouth twice a day CEFDINIR 300 MG CAPS 462138 CEFDINIR Inactive PREDNISONE 20 MG TAB 2 tabs daily for 3 days, 1 tab daily for 3 days, 1/2 tab daily for 2 days PREDNISONE 20 MG TAB 623450 PREDNISONE Inactive BACTRIM DS 800-160 MG TABS 1 po BID x 7 days BACTRIM DS 800-160 MG TABS SULFAMETHOXAZOLE-TRIMETHOPRIM Inactive DIFLUCAN 150 MG TABS 1 pill every other day x 2 doses DIFLUCAN 150 MG TABS 131930 FLUCONAZOLE Inactive Vital Signs Date Name Value [...] ... - Chemistry sodium, serum 140 mmol/L 468-326 8320/05/28 potassium, serum 4.2 mmol/L 3.5-5.2 chloride, serum [...] Panel - Chemistry sodium, serum 141 mmol/L 019-967 3357 potassium, serum 4.3 mmol/L 3.5-5.2 chloride, serum [...] Panel - Chemistry sodium, serum 139 mmol/L 344-394 2726/12/31 potassium, serum 4.8 mmol/L 3.5-5.2 chloride, serum 106 mmol/L 98-107 carbon dioxide, venous blood 24.3 mmol/L 21.0-32.0 blood glucose 90 mg/dL 65-110 urea nitrogen, blood 16 mg/dL 7-18 creatinine, serum 1.00 mg/dL 0.60-1.30 alanine aminotransferase (SGPT), serum 41 U/L 12-78 aspartate aminotransferase (SGOT), serum 17 U/L 15-37 calcium, serum 8.6 mg/dL 8.5-10.1 bilirubin, serum, total 0.30 mg/dL 0.00-1.00 cholesterol, serum 108 mg/dL 761-085 5029/12/31 triglyceride, serum, fasting 120 mg/dL 30-200 HDL [...] semiquantitative 7.0 5.0-8.5 Lab Report: Varicella-Zoater Inga IgG,IgM/53666, HEP Be Antibody/556, RUB ... - Serology rubella antibody, serum, IgG 2.88 Encounters Code Encounter Date Provider Facility [facility]-[id number] Level 4 Est. Patient 13:59:09 CDT Neeraj Collins MD [facility]-04927 Level 3 Est. Patient 15:19:43 CDT Renzo Thornton DO [facility] CPT-27749 Level 3 Est. Patient 18:10:26 CDT Sahara Rodriguez MD PhD [facility]-35621 Level 3 Est. Patient 14:49:50 CDT Vishal Hui MD [facility] CPT-59162 Level 4 Est. Patient 18:41:46 CDT Neeraj Collins MD [facility] CPT-46705 Level 4 Est. Patient 09:18:38 FLANGER Vishal Hui MD [facility]-60730 Level 3 Est. Patient 14:43:55 FLANGER Vishal Hui MD [facility]-25258 Level 3 Est. Patient 15:26:33 FLANGER Sahara Rodriguez MD PhD [facility] CPT-86601 Level 3 Est. Patient 10:32:14 FLANGER Vishal Hui MD [facility] CPT-33648 Level 3 Est. Patient 15:12:52 FLANGER Vishal Hui MD [facility] CPT-42376 Level 4 Est. Patient 09:19:27 CDT Vishal Hui MD [facility] CPT-88124 Level 3 Est. Patient 15:53:00 CDT Renzo Thornton [facility] CPT-95256 Level 3 Est. Patient 15:50:30 CDT Renzo Thornton [facility] CPT-66798 Level 3 Est. Patient 16:55:24 CDT Vishal Hui MD [facility] Procedures Code Procedure Name Date Entry Date Standard Description CPT-35735 Recombivax HB Injection Suspension 5 MCG/0.5ML 10:00:41 CDT CPT-60795 Administration single or combination vaccine inc oral 10 :00:41 CDT CPT-03339 Sono transvag pelvis non OB uterus ovaries cervix 16:36: 57 CDT CPT-04267 LS spine comp w obliq 09:50:55 FLANGER CPT-26447 Abd compl w upright 09:50:55 FLANGER CPT-J1100 Decadron 4mg (Dexamethasone) 15:51:24 FLANGER CPT-J1030 Depo Medrol 40 mg (Methyl Prednisolone Acetate) 15:51: 24 FLANGER CPT-47474 Abx/Therapy Injection 15:51:24 FLANGER CPT-J1100 Decadron 4mg (Dexamethasone) 15:26:33 FLANGER CPT-J1030 Depo Medrol 40 mg (Methyl Prednisolone Acetate) 15:26: 33 FLANGER CPT-16388 Sono retroperitoneal complete kidneys and bladder 17:15: 30 CDT CPT-42909 Abd compl w upright 16:09:25 CDT CPT-J1100 Decadron 8mg (Dexamethasone) 17:07:57 CDT CPT-29292 Abx/Therapy Injection 17:07:57 CDT CPT-J1100 Decadron 8mg (Dexamethasone) 16:55:24 CDT CPT-09718 Chest 2V Frontal and Lat 16:32:44 CDT
--- OUTSIDE RECORDS SUMMARY | 2016-11-05 00:29 | XMS REPORT ---
Author Author [facility] Medical Staff Organization [facility] Address [address] [place], [place] [id number] Phone [phone] Care Team Providers Care Guidance Consultant Name Role Phone TINO ABRAMS MD PP [phone] Summary purpose TRANSITION OF CARE AUTO GENERATION [...] Muscle Strength LLE 5 ROM full resist :34 Abdomen Appearance obese :34 Abdomen soft :34 Bowel Sounds present :34 [...] rigors no : HR > 90bpm no :34 Respirations > 20 no : Systolic <90 [...]
--- OUTSIDE RECORDS SUMMARY | 2016-11-05 00:29 | XMS REPORT | Clinical Summary ---
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 Juliet Kimbrough [employer] Dependence on other enabling machines and devices [...] breath Nocturnal hypoxia 799.02 Active Fabiola Johnson [employer] Hypoxemia Neck pain 723.1 Resolved Vishal Hui [...] not specified as infective DYSURIA 788.1 Active Luiig Martínez APRN Dysuria Contraceptive management V25.09 Active [...] Hui MD Flank pain, right ICD-789.09 Inactive Visahl Hui MD G E R D ICD-530.81 [...] TABS 1/2-1 tab TID PRN TRAMADOL HCL 78393443297 Active Lynda Juarezephraim [employer] Active PROAIR HFA 108 (90 BASE) MCG/ACT AERS 2 puffs four times a day as needed 2015 ALBUTEROL SULFATE 24254866851 Active Ahmet Carbajal MD Active EQ NICOTINE 21 MG/24HR TRANS PT24 Apply daily to stop smoking NICOTINE 69258037165 Active Ahmet Carbajal MD Active BACTRIM DS 800-160 MG TABS 1 twice a day SULFAMETHOXAZOLE- TRIMETHOPRIM 75143467616 Active Ahmet Carbajal MD Active ADVAIR DISKUS 250-50 MCG/DOSE INH AEPB 1 puff twice a day for asthma FLUTICASONE-SALMETEROL 65470927809 Active Ahmet Carbajal MD Active MONISTAT 7 COMBO PACK WOODROW 100 & 2 MG-% (9GM) VAG KIT 1 applicatorful per vagina q pm x 7 MICONAZOLE NITRATE 64377003682 No Longer Active Ahmet Carbajal MD Active FLAGYL 500 MG TAB 1 tablet by mouth bid METRONIDAZOLE 55669745638 No Longer Active Ahmet Carbajal MD Active OXYCODONE HCL ER 10 MG ORAL T12A 1/2 tab by mouth every 4 hours prn OXYCODONE HCL 92677506926 No Longer Active Ahmet Carbajal MD Active METHYLPREDNISOLONE 4 MG ORAL TABS po daily METHYLPREDNISOLONE 87021988574 No Longer Active Ahmet Carbajal MD Active LEVOFLOXACIN 500 MG ORAL TABS po daily LEVOFLOXACIN 60717088358 No Longer Active Ahmet Carbajal MD Active VIIBRYD 10 MG ORAL TABS Take 1 tablet once a day VILAZODONE HCL 98751814967 No Longer Active Ahmet Carbajal MD Active TOPAMAX 50 MG ORAL TABS 1 tab twice daily TOPIRAMATE 79210983361 No Longer Active Ahmet Carbajal MD Active DICLOFENAC SODIUM 50 MG TBEC 1 tablet by mouth four times daily PRN Pain 2015 DICLOFENAC SODIUM 86338236985 No Longer Active Ahmet Carbajal MD Active ADZENYS XR-ODT 6.3 MG ORAL TBED 1 tab po daily for ADHD AMPHETAMINE 73957022224 No Longer Active Ahmet Carbajal MD Active CHANTIX 1 MG TABS 1 twice a day to help quit smoking VARENICLINE TARTRATE 83663114329 No Longer Active Dipika Burgos MD Active CHANTIX STARTING MONTH EARNEST 0.5 MG X 11 & 1 MG X 42 TABS take as directed 2015 VARENICLINE TARTRATE 91958694710 No Longer Active Dipika Burgos MD Active TESSALON PERLES 100 MG CAP 1 to 2 tablets by mouth 3 times daily as needed for cough BENZONATATE 55978302549 No Longer Active Luigi Martínez [employer] Active ABILIOMAR MAINTENA 400 MG IM SUSR 400mg injection every 26 days ARIPIPRAZOLE 17090676746 Active Silvia Casey [employer] Active IMITREX 50 MG ORAL TABS 0.5 po x 1 PRN Headache. May repeat dose x 1 in 2 hours if needed SUMATRIPTAN SUCCINATE 30589567644 Active Suzan Boo [employer] Active HYDROCODONE-ACETAMINOPHEN 5-325 MG TABS 1 to 2 four times a day as needed for pain use until can be seen by specialist HYDROCODONE- ACETAMINOPHEN 34284147406 No Longer Active Vishal Hui MD Active PROAIR HFA 108 (90 BASE) MCG/ACT AERS 2 puffs four times a day as needed 2015 ALBUTEROL SULFATE 66506551292 No Longer Active Vishal Hui MD Active PREDNISONE 20 MG TABS 2 daily for 5 days then 1 daily for 5 days PREDNISONE 87802914549 No Longer Active Vishal Hui MD Active ZITHROMAX Z-EARNEST 250 MG TABS 2 today and then 1 daily for 4 days AZITHROMYCIN 28257222894 No Longer Active Vishal Hui MD Active DICLOFENAC POTASSIUM TABS Take 1 tablet twice a day (pt. is not sure of the dose.) DICLOFENAC POTASSIUM TABS 79025305776 No Longer Active Vishal Hui MD Active VERAPAMIL HCL ER 120 MG ORAL CR-TABS Take 1 tablet by mouth twice a day. VERAPAMIL HCL 70552028041 Active Vishal Hui MD Active FLAGYL 500 MG TAB 1 tablet by mouth bid METRONIDAZOLE 22187264660 No Longer Active Vishal Hui MD Active FLUTICASONE PROPIONATE 50 MCG/ACT SUSP 2 sprays each nostril daily before bed. FLUTICASONE PROPIONATE 78074793757 Active Fabiola Johnson APRN Active BENADRYL 25 MG CAP 4 po at bedtime for insomnia DIPHENHYDRAMINE HCL 40080355129 Active Fabiola Johnson APRN Active KLONOPIN 1 MG ORAL TABS 1 tab po TID CLONAZEPAM 81203987022 Active Fabiola Johnson APRN Active VALIUM 5 MG TAB Take 1-2 tablets daily DIAZEPAM 08682521536 No Longer Active Fabiola Johnson APRN Active METOPROLOL TARTRATE 25 MG ORAL TABS 1/2 tablet twice daily for heart rate and blood pressure METOPROLOL TARTRATE 97511032323 No Longer Active Fabiola Johnson APRN Active MIRALAX ORAL POWD 17GMS DAILY IN WATER POLYETHYLENE GLYCOL 3350 87598612557 Active Vishal Hui MD Active MIRALAX PACK 1 po qd PRN Constipation POLYETHYLENE GLYCOL 3350 48319616296 No Longer Active Ahmet Carbajal MD Active MINIPRESS 2 MG CAPS 4 cap po at night PRAZOSIN HCL 34479837442 No Longer Active Ahmet Carbajal MD Active PIROXICAM 20 MG CAPS 1 cap po qd PRN Pain PIROXICAM 04935558135 No Longer Active Ahmet Carbajal MD Active TRAMADOL HCL 50 MG TABS 1-2 po TID PRN Pain TRAMADOL HCL 95769808366 No Longer Active Ahmet Carbajal MD Active METOPROLOL TARTRATE 50 MG TAB 1 po bid METOPROLOL TARTRATE 16990347419 No Longer Active Ahmet Carbajal MD Active ABILIFY 15 MG ORAL TABS 1 tab daily ARIPIPRAZOLE 94673797579 No Longer Active Ahmet Carbajal MD Active PROZAC 20 MG ORAL CAPS 1 tab daily FLUOXETINE HCL 35964748818 No Longer Active Ahmet Carbajal MD Active AMBIEN 5 MG ORAL TABS 1 tab at bedtime ZOLPIDEM TARTRATE 62944574853 No Longer Active Ahmet Carbajal MD Active PREDNISONE 20 MG TAB 2 tabs daily for 4 days, 1 tab daily for 4 days, 1/2 tab daily for 4 days PREDNISONE 48503287722 No Longer Active Ahmet Carbajal MD Active KEFLEX 500 MG CAP 1 po TID x 10 days CEPHALEXIN 28751759041 No Longer Active Vishal Hui MD Active SAPHRIS 5 MG SUBL 1 po bid ASENAPINE MALEATE 58972433577 No Longer Active Luigi Martínez APRN Active LATUDA 80 MG TABS Take one by mouth daily LURASIDONE HCL 01556534132 No Longer Active Jillina Fralebron [employer] Active AMLODIPINE BESYLATE 5 MG TABS 1 tablet by mouth daily AMLODIPINE BESYLATE 77100655245 No Longer Active Jillina Fralebron [employer] Active AMITRIPTYLINE HCL 100 MG TAB one at hs AMITRIPTYLINE HCL 20075677970 No Longer Active Vishal Hui MD Active TRAZODONE HCL 100 MG TAB take 1 at bedtime TRAZODONE HCL 31724451283 No Longer Active Vishal Hui MD Active VYVANSE 40 MG CAPS 1 daily, LISDEXAMFETAMINE DIMESYLATE 72438436555 No Longer Active Vishal Hui MD Active IBUPROFEN 600 MG TAB 1 po TID PRN IBUPROFEN 98667622514 No Longer Active Vishal Hui MD Active PROZAC 20 MG CAP Take one by mouth daily FLUOXETINE HCL 53045860045 No Longer Active Vishal Hui MD Active ZOFRAN 4 MG TABS 1 po q6hr PRN Nausea ONDANSETRON HCL Active Vishal Hui MD Active BACTRIM DS 800-160 MG TABS 1 pill by mouth twice daily SULFAMETHOXAZOLE-TRIMETHOPRIM 78430074397 No Longer Active Sahara Rodriguez MD PhD Active DIFLUCAN 150 MG TAB 1 tablet by mouth daily FLUCONAZOLE 40035170560 No Longer Active Vishal Hui MD Active TIZANIDINE HCL 4 MG TABS 1 po q6hr PRN Muscle Spasm/Back Pain TIZANIDINE HCL 08851568279 Active Vishal Hui MD Active CLINDAMYCIN HCL 150 MG CAPS 1 four times a day CLINDAMYCIN HCL 78294727921 No Longer Active Neeraj Collins MD Active KEFLEX 500 MG ORAL CAPS 1 cap QID by mouth CEPHALEXIN 69170877269 No Longer Active Neeraj Collins MD Active DIFLUCAN 150 MG TABS 1 pill every other day x 2 doses FLUCONAZOLE 25813993245 No Longer Active Sahara Rodriguez MD PhD Active MELATONIN 3 MG CAPS 2 po q hs MELATONIN 25771360694 No Longer Active Sahara Rodriguez MD PhD Active MULTIVITAMINS CAPS Take one by mouth daily MULTIPLE VITAMIN 22664851078 No Longer Active Sahara Rodriguez MD PhD Active BACTRIM DS 800-160 MG TAB 1 tab by mouth twice daily TRIMETHOPRIM-SULFAMETHOXAZOLE 75536224343 No Longer Active Sahara Rodriguez MD PhD Active [facility] PROBIOTIC ORAL CHEW 2 daily po PROBIOTIC PRODUCT 11001364515 No Longer Active Sahara Rodriguez MD PhD Active BACTRIM DS 800-160 MG TABS 1 po BID x 7 days SULFAMETHOXAZOLE-TRIMETHOPRIM 48189876678 No Longer Active Vishal Hui MD Active CHANTIX STARTING MONTH EARNEST 0.5 MG X 11 & 1 MG X 42 TABS 0.5mg daily for 3 days , then 0.5mg BID for 4 days, then 1mg BID VARENICLINE TARTRATE 61648242434 No Longer Active TAMARA Gray Active VERAPAMIL HCL CR 120 MG TAB CR 1 po bid VERAPAMIL HCL 49673832381 No Longer Active Vishal Hui MD Active METOPROLOL SUCCINATE 50 MG TB24 1 tablet by mouth daily METOPROLOL SUCCINATE 36611606350 No Longer Active Vishal Hui MD Active SAPHRIS 10 MG SUBL 1 tab po bid ASENAPINE MALEATE 95032840182 No Longer Active Vishal Hui MD Active LISINOPRIL 20 MG TABS 1 tab po qd LISINOPRIL 14087853477 No Longer Active Vishal Hui MD Active LATUDA 20 MG TABS Take one by mouth daily LURASIDONE HCL 71550935701 No Longer Active Vishal Hui MD Active TRAZODONE HCL 50 MG TABS 1/2 tab po qd prn for anxiety TRAZODONE HCL 25884591444 No Longer Active Vishal Hui MD Active OMEPRAZOLE 20 MG TBEC 1 po q a.m. 30min prior to first food intake OMEPRAZOLE 40572491513 Active Vishal Hui MD Active RANITIDINE HCL 150 MG CAPS 1 twice a day RANITIDINE HCL 02585702495 Active Luigi Martínez APRN Active LINZESS 290 MCG CAPS Take one by mouth daily LINACLOTIDE 57890893408 No Longer Active Vishal Hui MD Active SAPHRIS 5 MG SUBL 1 tab po qd ASENAPINE MALEATE 66104363299 No Longer Active Vishal Hui MD Active ZALEPLON 10 MG CAPS 1 cap po every other night ZALEPLON 31107435668 No Longer Active Vishal Hui MD Active LYRICA 50 MG CAPS 1 tab po TID PREGABALIN 06155221187 No Longer Active Vishal Hui MD Active LORATADINE 10 MG TABS 1 tab po qd LORATADINE 29841746201 No Longer Active Vishal Hui MD Active VERAPAMIL HCL ER 180 MG CR-TABS 1 tab po bid VERAPAMIL HCL 50859608534 No Longer Active Vishal Hui MD Active MIRALAX POWD 1 capfull once daily POLYETHYLENE GLYCOL 3350 54257844233 No Longer Active Vishal Hui MD Active PREDNISONE 20 MG TABS 1 tab po qd PREDNISONE 20073151930 No Longer Active Renzo Thornton DO Active LEVOFLOXACIN 500 MG TABS 1 tab po qd LEVOFLOXACIN 21510931283 No Longer Active Renzo Thornton DO Active BUSPIRONE HCL 15 MG TABS 1 tab po TID BUSPIRONE HCL 57635989801 No Longer Active Renzo Thornton DO Active BENZTROPINE MESYLATE 1 MG TABS 1 tab po qd BENZTROPINE MESYLATE 83708231363 No Longer Active Renzo Thornton DO Active ATENOLOL 25 MG TABS 1 tab po qd ATENOLOL 46083752916 No Longer Active Renzo Thornton DO Active ESCITALOPRAM OXALATE 20 MG TABS 1 tab po qd ESCITALOPRAM OXALATE 21675110818 No Longer Active Renzo Thornton DO Active ADVAIR DISKUS 250-50 MCG/DOSE AEPB 1 puff BID FLUTICASONE-SALMETEROL 64726122309 No Longer Active Renzo Thornton DO Active PREDNISONE 20 MG TAB 2 tabs daily for 3 days, 1 tab daily for 3 days, 1/2 tab daily for 2 days PREDNISONE 72381822777 No Longer Active Vishal Hui MD Active CEFDINIR 300 MG CAPS by mouth twice a day CEFDINIR 96852481302 No Longer Active Vishal Hui MD Active LANSOPRAZOLE 30 MG CPDR 1 cap po qd LANSOPRAZOLE 54412346692 No Longer Active Vishal Hui MD Active BACLOFEN 20 MG TABS 1 tab po tid BACLOFEN 60812349437 No Longer Active Vishal Hui MD Active ADVAIR DISKUS 250-50 MCG/DOSE AEPB 1 puff BID ADVAIR DISKUS 250-50 MCG/DOSE AEPB FLUTICASONE-SALMETEROL Inactive ESCITALOPRAM OXALATE 20 MG TABS 1 tab po qd ESCITALOPRAM OXALATE 20 MG TABS 336419 ESCITALOPRAM OXALATE Inactive ATENOLOL 25 MG TABS 1 tab po qd ATENOLOL 25 MG TABS 890202 ATENOLOL Inactive BENZTROPINE MESYLATE 1 MG TABS 1 tab po qd BENZTROPINE MESYLATE 1 MG TABS 469579 BENZTROPINE MESYLATE Inactive BUSPIRONE HCL 15 MG TABS 1 tab po TID BUSPIRONE HCL 15 MG TABS 934124 BUSPIRONE HCL Inactive LEVOFLOXACIN 500 MG TABS 1 tab po qd LEVOFLOXACIN 500 MG TABS 384740 LEVOFLOXACIN Inactive PREDNISONE 20 MG TABS 1 tab po qd PREDNISONE 20 MG TABS 624398 PREDNISONE Inactive MIRALAX POWD 1 capfull once daily MIRALAX POWD 163138 POLYETHYLENE GLYCOL 3350 Inactive VERAPAMIL HCL ER 180 MG CR-TABS 1 tab po bid VERAPAMIL HCL ER 180 MG CR-TABS VERAPAMIL HCL Inactive LORATADINE 10 MG TABS 1 tab po qd LORATADINE 10 MG TABS 809255 LORATADINE Inactive LYRICA 50 MG CAPS 1 tab po TID LYRICA 50 MG CAPS PREGABALIN Inactive ZALEPLON 10 MG CAPS 1 cap po every other night ZALEPLON 10 MG CAPS 840828 ZALEPLON Inactive SAPHRIS 5 MG SUBL 1 tab po qd SAPHRIS 5 MG SUBL ASENAPINE MALEATE Inactive TRAZODONE HCL 50 MG TABS 1/2 tab po qd prn for anxiety TRAZODONE HCL 50 MG TABS 680829 TRAZODONE HCL Inactive LATUDA 20 MG TABS Take one by mouth daily LATUDA 20 MG TABS LURASIDONE HCL Inactive LISINOPRIL 20 MG TABS 1 tab po qd LISINOPRIL 20 MG TABS 312985 LISINOPRIL Inactive SAPHRIS 10 MG SUBL 1 [...] twice daily BACTRIM DS 800-160 MG TAB 092690 TRIMETHOPRIM-SULFAMETHOXAZOLE Inactive MULTIVITAMINS CAPS Take one by mouth daily MULTIVITAMINS CAPS MULTIPLE VITAMIN Inactive MELATONIN 3 MG CAPS 2 po q hs MELATONIN 3 MG CAPS 189554 MELATONIN Inactive KEFLEX 500 MG ORAL CAPS 1 cap QID by mouth KEFLEX 500 MG ORAL CAPS 967350 CEPHALEXIN Inactive CLINDAMYCIN HCL 150 MG CAPS 1 four times a day CLINDAMYCIN HCL 150 MG CAPS 19740326 CLINDAMYCIN HCL Inactive DIFLUCAN 150 MG TAB 1 tablet by mouth daily DIFLUCAN 150 MG TAB 916399 FLUCONAZOLE Inactive PROZAC 20 MG CAP Take one by mouth daily PROZAC 20 MG CAP 038377 FLUOXETINE HCL Inactive IBUPROFEN 600 MG TAB 1 po TID PRN IBUPROFEN 600 MG TAB 432960 IBUPROFEN Inactive VYVANSE 40 MG CAPS 1 daily, VYVANSE 40 MG CAPS LISDEXAMFETAMINE DIMESYLATE Inactive TRAZODONE HCL 100 MG TAB take 1 at bedtime TRAZODONE HCL 100 MG TAB 491022 TRAZODONE HCL Inactive AMITRIPTYLINE HCL 100 MG TAB one at hs AMITRIPTYLINE HCL 100 MG TAB 308885 AMITRIPTYLINE HCL Inactive AMLODIPINE BESYLATE 5 MG TABS 1 tablet by mouth daily AMLODIPINE BESYLATE 5 MG TABS 526440 AMLODIPINE BESYLATE Inactive LATUDA 80 MG TABS Take one by mouth daily LATUDA 80 MG TABS LURASIDONE HCL Inactive SAPHRIS 5 MG SUBL 1 po bid SAPHRIS 5 MG SUBL ASENAPINE MALEATE Inactive PREDNISONE 20 MG TAB 2 tabs daily for 4 days, 1 tab daily for 4 days, 1/2 tab daily for 4 days PREDNISONE 20 MG TAB 180721 PREDNISONE Inactive AMBIEN 5 MG ORAL TABS 1 tab at bedtime AMBIEN 5 MG ORAL TABS 010577 ZOLPIDEM TARTRATE Inactive PROZAC 20 MG ORAL CAPS 1 tab daily PROZAC 20 MG ORAL CAPS 997942 FLUOXETINE HCL Inactive ABILIFY 15 MG ORAL TABS 1 tab daily ABILIFY 15 MG ORAL TABS 093422 ARIPIPRAZOLE Inactive METOPROLOL TARTRATE 50 MG TAB 1 po bid METOPROLOL TARTRATE 50 MG TAB 989236 METOPROLOL TARTRATE Inactive TRAMADOL HCL 50 MG TABS 1-2 po TID PRN Pain TRAMADOL HCL 50 MG TABS 630588 TRAMADOL HCL Inactive PIROXICAM 20 MG CAPS 1 cap po qd PRN Pain PIROXICAM 20 MG CAPS 946334 PIROXICAM Inactive MINIPRESS 2 MG CAPS 4 cap po at night MINIPRESS 2 MG CAPS 353625 PRAZOSIN HCL Inactive MIRALAX PACK 1 po qd PRN Constipation MIRALAX PACK 471573 POLYETHYLENE GLYCOL 3350 Inactive METOPROLOL TARTRATE 25 MG ORAL TABS 1/2 tablet twice daily for heart rate and blood pressure METOPROLOL TARTRATE 25 MG ORAL TABS 356568 METOPROLOL TARTRATE Inactive VALIUM 5 MG TAB Take 1-2 tablets daily VALIUM 5 MG TAB 159363 DIAZEPAM Inactive FLAGYL 500 MG TAB 1 tablet by mouth bid FLAGYL 500 MG TAB 821902 METRONIDAZOLE Inactive DICLOFENAC POTASSIUM TABS Take 1 tablet twice a day (pt. is not sure of the dose.) DICLOFENAC POTASSIUM TABS DICLOFENAC POTASSIUM TABS Inactive ZITHROMAX Z-EARNEST 250 MG TABS 2 today and then 1 daily for 4 days ZITHROMAX Z-EARNEST 250 MG TABS 8927836 AZITHROMYCIN Inactive PREDNISONE 20 MG TABS 2 daily for 5 days then 1 daily for 5 days PREDNISONE 20 MG TABS 669061 PREDNISONE Inactive PROAIR HFA 108 (90 BASE) MCG/ACT AERS 2 puffs four times a day as needed 2015 PROAIR HFA 108 (90 BASE) MCG/ACT AERS ALBUTEROL SULFATE Inactive HYDROCODONE-ACETAMINOPHEN 5-325 MG TABS 1 to 2 four times a day as needed for pain use until can be seen by specialist HYDROCODONE- ACETAMINOPHEN 5-325 MG TABS 787731 HYDROCODONE-ACETAMINOPHEN Inactive TESSALON PERLES 100 MG CAP 1 to 2 tablets by mouth 3 times daily as needed for cough TESSALON PERLES 100 MG CAP 652858 BENZONATATE Inactive CHANTIX STARTING MONTH EARNEST 0.5 [...] Pain 2015 DICLOFENAC SODIUM 50 MG TBEC 223372 DICLOFENAC SODIUM Inactive TOPAMAX 50 MG ORAL TABS 1 tab twice daily TOPAMAX 50 MG ORAL TABS 653170 TOPIRAMATE Inactive VIIBRYD 10 MG ORAL TABS Take 1 tablet once a day VIIBRYD 10 MG ORAL TABS VILAZODONE HCL Inactive LEVOFLOXACIN 500 MG ORAL TABS po daily LEVOFLOXACIN 500 MG ORAL TABS 843771 LEVOFLOXACIN Inactive METHYLPREDNISOLONE 4 MG ORAL TABS po daily METHYLPREDNISOLONE 4 MG ORAL TABS 323043 METHYLPREDNISOLONE Inactive OXYCODONE HCL ER 10 MG ORAL T12A 1/2 tab by mouth every 4 hours prn OXYCODONE HCL ER 10 MG ORAL T12A OXYCODONE HCL Inactive FLAGYL 500 MG TAB 1 tablet by mouth bid FLAGYL 500 MG TAB 392845 METRONIDAZOLE Inactive MONISTAT 7 COMBO PACK WOODROW 100 & 2 MG-% (9GM) VAG KIT 1 applicatorful per vagina q pm x 7 MONISTAT 7 COMBO PACK WOODROW 100 & 2 MG-% (9GM) VAG KIT MICONAZOLE NITRATE Inactive CEFDINIR 300 MG CAPS by mouth twice a day CEFDINIR 300 MG CAPS 913297 CEFDINIR Inactive PREDNISONE 20 MG TAB 2 tabs daily for 3 days, 1 tab daily for 3 days, 1/2 tab daily for 2 days PREDNISONE 20 MG TAB 789353 PREDNISONE Inactive BACTRIM DS 800-160 MG TABS 1 po BID x 7 days BACTRIM DS 800-160 MG TABS 684233 SULFAMETHOXAZOLE-TRIMETHOPRIM Inactive DIFLUCAN 150 MG TABS 1 pill every other day x 2 doses DIFLUCAN 150 MG TABS 248396 FLUCONAZOLE Inactive BACTRIM DS 800-160 MG TABS 1 pill by mouth twice daily BACTRIM DS 800-160 MG TABS 773397 SULFAMETHOXAZOLE-TRIMETHOPRIM Inactive KEFLEX 500 MG CAP 1 po TID x 10 days KEFLEX 500 MG CAP 963674 CEPHALEXIN Inactive Advance Directives Directive Description Start [...] % 11.6-14.8 platelet count 394 10^3/MM^3 10*3/mm3 616-777 8672/01/11 leukocyte count, blood 13.8 10^3/MM^3 10*3/mm3 4.6-10.2 [...] 379 10^3/MM^3 10*3/mm3 142-424 Lab Report: Chlamydia/GC APTIMA/[id number] - Lab chlamydia DNA probe NOT DETECTED NOT DETECTED Lab Report: Chlamydia/GC [facility]TIMA/[id number] - Microbiology Neisseria gonorrhoeae DNA probe NOT DETECTED NOT DETECTED Lab Report: Comp. Metabolic Panel - Chemistry sodium, serum 139 mmol/L 549-426 7606/12/22 carbon dioxide, venous blood 26.8 mmol/L 21.0-32.0 potassium, serum 4.2 mmol/L 3.5-5.2 chloride, serum 103 mmol/L 98-107 blood glucose 115 mg/dL 65-110 urea nitrogen, blood 20 mg/dL 7-18 creatinine, serum 0.90 mg/dL 0.55-1.30 alanine aminotransferase (SGPT), serum 38 U/L 12-78 aspartate aminotransferase (SGOT), serum 19 U/L 15-37 calcium, serum 8.6 mg/dL 8.5-10.1 bilirubin, serum, total 0.30 mg/dL 0.00-1.00 sodium, serum 139 mmol/L 208-379 1446/01/11 carbon dioxide, venous blood 26.6 mmol/L 21.0-32.0 potassium, serum 4.1 mmol/L 3.5-5.2 chloride, serum 100 mmol/L 98-107 blood glucose 86 mg/dL 65-110 urea nitrogen, blood 16 mg/dL 7-18 creatinine, serum 1.00 mg/dL 0.55-1.30 alanine aminotransferase (SGPT), serum 48 U/L 78 aspartate aminotransferase (SGOT), serum 17 U/L 15-37 calcium, serum 9.1 mg/dL 8.5-10.1 bilirubin, serum, total 0.40 mg/dL 0.00-1.00 sodium, serum 142 mmol/L 003-816 0788/06/08 carbon dioxide, venous blood 27.6 mmol/L 21.0-32.0 potassium, serum 4.0 mmol/L 3.5-5.2 chloride, serum 105 mmol/L 98-107 blood glucose 95 mg/dL 65-110 urea nitrogen, blood 8 mg/dL 7-18 creatinine, serum 0.75 mg/dL 0.55-1.30 alanine aminotransferase (SGPT), serum 49 U/L 12- aspartate aminotransferase (SGOT), serum 28 U/L 15-37 calcium, serum 9.4 mg/dL 8.5-10.1 bilirubin, serum, total 0.30 mg/dL 0.00-1.00 sodium, serum 140 mmol/L 835-105 8157/08/08 carbon dioxide, venous blood 33.7 mmol/L 21.0-32.0 [...] Rate - Chemistry sodium, serum 139 mmol/L 436-504 0844/12/11 carbon dioxide, venous blood 25.4 mmol/L 21.0-32.0 [...] mg/dL Encounters Code Encounter Date Provider Facility CPT-18100 Level 3 Est. Patient 15:07:06 [employer] Neeraj Collins MD [facility] CPT-73161 Level 4 Est. Patient 14:45:00 [employer] Ahmet Carbajal MD [facility] CPT-83384 Level 3 Est. Patient 13:59:59 CDT Luigi Martínez [facility] CPT-55956 Level 3 Est. Patient 18:18:53 CDT Neeraj Collins MD [facility] CPT-04280 Level 3 Est. Patient 15:50:44 CDT Vishal Hui MD [facility] CPT-67012 Level 3 Est. Patient 11:36:17 CDT Ahmet Carbajal MD [facility] CPT-39880 Level 3 Est. Patient 13:29:16 CDT Vishal Hui MD [facility] CPT-40648 Level 3 Est. Patient 14:27:52 CDT Neeraj Collins MD [facility] CPT-55839 Level 3 Est. Patient 08:56:03 CDT Luigi Martínez [facility] CPT-03467 Level 4 Est. Patient 12:11:48 CDT Fabiola Johnson [facility] CPT-55000 Level 3 New Patient 16:53:37 CDT Albert Caldera MD [facility] CPT-49442 Level 3 Est. Patient 11:25:49 CDT Renzo Thornton DO [facility] CPT-03823 Level 3 Est. Patient 15:22:01 CDT Ahmet Carbajal MD [facility] CPT-54988 Level 4 Est. Patient 09:00:51 [employer] Vishal Hui MD [facility] CPT-53127 Level 3 Est. Patient 11:37:33 [employer] Vishal Hui MD [facility] CPT-43702 Level 3 Est. Patient 08:41:09 [employer] Vishal Hui MD [facility] CPT-55567 Level 4 Est. Patient 10:19:35 [employer] Vishal Hui MD [facility] CPT-33682 Level 3 Est. Patient 13:35:45 CDT Vishal Hui MD [facility] CPT-57949 Level 4 Est. Patient 10:08:37 CDT Vishal Hui MD [facility] CPT-40177 Level 3 Est. Patient 11:22:10 CDT Vishal Hui MD [facility] CPT-92363 Level 3 Est. Patient 11:03:32 CDT Sahara Rodriguez MD [facility]-91935 Level 3 Est. Patient 09:41:35 CDT Vishal Hui MD [facility] CPT-29658 Level 3 Est. Patient 12:00:41 CDT Neeraj Collins MD [facility] CPT-54419 Level 3 Est. Patient 09:16:24 CDT Vishal Hui MD [facility] CPT-04568 Level 4 Est. Patient 13:59:09 CDT Neeraj Collins MD [facility] CPT-63122 Level 3 Est. Patient 15:19:43 CDT Renzo Thornton DO [facility] CPT-90700 Level 3 Est. Patient 18:10:26 CDT Sahara Rodriguez MD [facility]-63556 Level 3 Est. Patient 14:49:50 CDT Vishal Hui MD [facility] CPT-58826 Level 4 Est. Patient 18:41:46 CDT Neeraj Collins MD [facility] CPT-74212 Level 4 Est. Patient 09:18:38 [employer] Vishal Hui MD [facility] CPT-94511 Level 3 Est. Patient 14:43:55 [employer] Vishal Hui MD [facility] CPT-20292 Level 3 Est. Patient 15:26:33 [employer] Sahara Rodriguez MD [facility] CPT-80701 Level 3 Est. Patient 10:32:14 [employer] Vishal Hui MD [facility] CPT-63559 Level 3 Est. Patient 15:12:52 [employer] Vishal Hui MD [facility] CPT-12635 Level 4 Est. Patient 09:19:27 CDT Vishal Hui MD [facility] CPT-65072 Level 3 Est. Patient 15:53:00 CDT Renzo Thornton [facility] CPT-93443 Level 3 Est. Patient 15:50:30 CDT Renzo Thornton [facility] CPT-77728 Level 3 Est. Patient 16:55:24 CDT Vishal Hui MD [facility] Procedures Code Procedure Name Date Entry Date Standard Description CPT-70471 Abx/Therapy Injection 17:34:30 [employer] CPT-95158 Nexplanon Removal with Reinsertion 14:09:32 CDT CPT-J7307 Nexplanon (Implant) 14:09:32 CDT CPT-OV Office Visit 14:09:32 CDT CPT-24625 UA w micro - LAB USE ONLY 16:21:13 CDT CPT-56064 Wet Mount - LAB USE ONLY 16:21:13 CDT CPT-15047 First Vx - Ix admin for Medicare patients 14:37:47 CDT CPT-28133 Fluzone Preservative Free Intramuscular Suspension 14:37 :47 CDT CPT-36546 Abx/Therapy Injection 13:54:22 CDT CPT-33652 Abx/Therapy Injection 08:47:09 CDT CPT-77809 Abx/Therapy Injection 13:29:56 CDT CPT-79812 Abx/Therapy Injection 08:36:16 CDT CPT-81826 Wet Mount - LAB USE ONLY 17:44:58 CDT CPT-07390 UA w micro - LAB USE ONLY 17:44:58 CDT CPT-80126 CMP - LAB USE ONLY 17:44:58 CDT CPT-94481 Venipuncture Draw Fee 17:44:58 CDT CPT-69431 Cervical Min 4V - XRAY USE ONLY 09:01:40 CDT CPT-14592 Chest 2V Frontal and Lat - XRAY USE ONLY 11:06:31 CDT CPT-19068 EKG Trac and Interp - XRAY USE ONLY 11:31:43 CDT 08/26 CPT-J3420 Vitamin B12 1000mcg (Cyanocobalamin) 08:10:26 LINSEED CAKE TRIMMER 04/12 CPT-50206 Abx/Therapy Injection 08:10:26 LINSEED CAKE TRIMMER CPT-G0438 Initial Annual Wellness Exam 19:01:01 LINSEED CAKE TRIMMER CPT-J3420 Vitamin B12 1000mcg (Cyanocobalamin) 16:57:46 CDT 08/14 CPT-75317 Recombivax HB Injection Suspension 5 MCG/0.5ML 08:37:50 LINSEED CAKE TRIMMER CPT-64495 Immunization Single Admin 08:37:50 LINSEED CAKE TRIMMER CPT-J3420 Vitamin B12 1000mcg (Cyanocobalamin) 08:32:16 LINSEED CAKE TRIMMER 03/11 CPT-51408 Abx/Therapy Injection 08:32:16 LINSEED CAKE TRIMMER CPT-17420 Chest 2V Frontal and Lat 11:46:38 LINSEED CAKE TRIMMER CPT-10952 Venipuncture Draw Fee 09:12:45 LINSEED CAKE TRIMMER CPT-J3420 Vitamin B12 1000mcg (Cyanocobalamin) 08:50:15 LINSEED CAKE TRIMMER 02/08 CPT-42618 Abx/Therapy Injection 08:50:15 LINSEED CAKE TRIMMER CPT-Cryo Cryotherapy 10:19:35 LINSEED CAKE TRIMMER CPT-000 Give Appropriate Flu Vaccine 09:22:16 CDT CPT-J3420 Vitamin B12 1000mcg (Cyanocobalamin) 19:08:57 CDT 01/11 CPT-15029 Abx/Therapy Injection 19:08:57 CDT CPT-J3420 Vitamin B12 1000mcg (Cyanocobalamin) 08:19:08 CDT 12/11 CPT-13397 Abx/Therapy Injection 08:19:08 CDT CPT-J3420 Vitamin B12 1000mcg (Cyanocobalamin) 14:48:00 CDT 11/09 CPT-66632 Abx/Therapy Injection 14:47:59 CDT CPT-J3420 Vitamin B12 1000mcg (Cyanocobalamin) 08:34:04 CDT 10/09 CPT-64595 Abx/Therapy Injection 08:34:04 CDT CPT-J3420 Vitamin B12 1000mcg (Cyanocobalamin) 09:18:52 CDT 09/11 CPT-01248 Abx/Therapy Injection 09:18:52 CDT CPT-J3420 Vitamin B12 1000mcg (Cyanocobalamin) 08:35:44 CDT 09/04 CPT-66158 Abx/Therapy Injection 08:35:44 CDT CPT-31494 Immunization Single Admin 11:07:16 CDT CPT-27094 Hepatitis B adult IM 11:07:16 CDT CPT-J3420 Vitamin B12 1000mcg (Cyanocobalamin) 11:00:49 CDT 08/28 CPT-J1040 Depo Medrol 80 mg (Methyl Prednisolone Acetate) 11:00: 49 CDT CPT-37838 Abx/Therapy Injection 11:00:49 CDT CPT-J1040 Depo Medrol 80 mg (Methyl Prednisolone Acetate) 09:16: 23 CDT CPT-J3420 Vitamin B12 1000mcg (Cyanocobalamin) 08:27:05 CDT 08/20 CPT-59020 Abx/Therapy Injection 08:27:05 CDT CPT-46107 Recombivax HB Injection Suspension 5 MCG/0.5ML 10:00:41 CDT CPT-14556 Administration single or combination vaccine inc oral 10 :00:41 CDT CPT-81647 Sono transvag pelvis non OB uterus ovaries cervix 16:36: 57 CDT CPT-31210 LS spine comp w obliq 09:50:55 LINSEED CAKE TRIMMER CPT-22647 Abd compl w upright 09:50:55 LINSEED CAKE TRIMMER CPT-J1100 Decadron 4mg (Dexamethasone) 15:51:24 LINSEED CAKE TRIMMER CPT-J1030 Depo Medrol 40 mg (Methyl Prednisolone Acetate) 15:51: 24 LINSEED CAKE TRIMMER CPT-52711 Abx/Therapy Injection 15:51:24 LINSEED CAKE TRIMMER CPT-J1100 Decadron 4mg (Dexamethasone) 15:26:33 LINSEED CAKE TRIMMER CPT-J1030 Depo Medrol 40 mg (Methyl Prednisolone Acetate) 15:26: 33 LINSEED CAKE TRIMMER CPT-57328 Sono retroperitoneal complete kidneys and bladder 17:15: 30 CDT CPT-79116 Abd compl w upright 16:09:25 CDT CPT-J1100 Decadron 8mg (Dexamethasone) 17:07:57 CDT CPT-00402 Abx/Therapy Injection 17:07:57 CDT CPT-J1100 Decadron 8mg (Dexamethasone) 16:55:24 CDT CPT-75589 Chest 2V Frontal and Lat 16:32:44 CDT
--- OUTSIDE RECORDS SUMMARY | 2016-11-05 00:31 | XMS REPORT | Clinical Summary ---
Author Author Admin, QIE Organization [employer] Address Unknown Phone Unavailable Allergies, Adverse Reactions, [...] specified Headache, atypical 784.0 Active Luigi Martínez ENGINEERING LAB TECHNICIAN Headache Elevated blood glucose 790.29 Resolved Vishal [...] 1/2 tab daily for 4 days PREDNISONE 97328867802 Active Vishal Hui MD Active IMITREX 50 MG ORAL TABS 1/2 tab every 6 hours prn SUMATRIPTAN SUCCINATE 83615060459 Active Jillina Mauricio WALTERSN Active AMBIEN 5 MG ORAL TABS 1 tab at bedtime ZOLPIDEM TARTRATE 76373428169 Active Jillina Johnl ENGINEERING LAB TECHNICIAN Active PROZAC 20 MG ORAL CAPS 1 tab daily FLUOXETINE HCL 47741674766 Active Jillina Fradwightl ENGINEERING LAB TECHNICIAN Active ABILIFY 15 MG ORAL TABS 1 tab daily ARIPIPRAZOLE 66703476947 Active Jillina Frazell ENGINEERING LAB TECHNICIAN Active MINIPRESS 2 MG CAPS 4 cap po at night PRAZOSIN HCL 40512472199 Active Jillina Frazell ENGINEERING LAB TECHNICIAN Active TOPAMAX 50 MG ORAL TABS 1 tab twice daily TOPIRAMATE 73907735108 Active Pacollina Fradwightl ENGINEERING LAB TECHNICIAN Active SAPHRIS 5 MG SUBL 1 po bid ASENAPINE MALEATE 62696408777 No Longer Active Pacollina Mauricio WALTERSN Active LATUDA 80 MG TABS Take one by mouth daily LURASIDONE HCL 87084590493 No Longer Active Jillina Fralebron WALTERSN Active AMLODIPINE BESYLATE 5 MG TABS 1 tablet by mouth daily AMLODIPINE BESYLATE 02226465521 No Longer Active Tataina Mauricio WALTERSN Active AMITRIPTYLINE HCL 100 MG TAB one at hs AMITRIPTYLINE HCL 26724819896 No Longer Active Vishal Hui MD Active TRAZODONE HCL 100 MG TAB take 1 at bedtime TRAZODONE HCL 66272201039 No Longer Active Vishal Hui MD Active VYVANSE 40 MG CAPS 1 daily, LISDEXAMFETAMINE DIMESYLATE 65098064111 No Longer Active Vishal Hui MD Active IBUPROFEN 600 MG TAB 1 po TID PRN IBUPROFEN 93254108456 No Longer Active Vishal Hui MD Active MIRALAX PACK 1 po qd PRN Constipation POLYETHYLENE GLYCOL 3350 82798611597 Active Vishal Hui MD Active PROZAC 20 MG CAP Take one by mouth daily FLUOXETINE HCL 10603680201 No Longer Active Vishal Hui MD Active ZOFRAN 4 MG TABS 1 po q6hr PRN Nausea ONDANSETRON HCL Active Vishal Hui MD Active BACTRIM DS 800-160 MG TABS 1 pill by mouth twice daily SULFAMETHOXAZOLE-TRIMETHOPRIM 56775920979 No Longer Active Sahara Rodriguez MD PhD Active DIFLUCAN 150 MG TAB 1 tablet by mouth daily FLUCONAZOLE 87963732253 No Longer Active Vishal Hui MD Active TIZANIDINE HCL 4 MG TABS 1 po q6hr PRN Muscle Spasm/Back Pain TIZANIDINE HCL 12089660007 Active Luigi Martínez APRN Active CLINDAMYCIN HCL 150 MG CAPS 1 four times a day CLINDAMYCIN HCL 82293997171 No Longer Active Neeraj Collins MD Active KEFLEX 500 MG ORAL CAPS 1 cap QID by mouth CEPHALEXIN 26496735904 No Longer Active Neeraj Collins MD Active DIFLUCAN 150 MG TABS 1 pill every other day x 2 doses FLUCONAZOLE 76295724456 No Longer Active Sahara Rodriguez MD PhD Active MELATONIN 3 MG CAPS 2 po q hs MELATONIN 43936685425 No Longer Active Sahara Rodriguez MD PhD Active MULTIVITAMINS CAPS Take one by mouth daily MULTIPLE VITAMIN 06609884242 No Longer Active Sahara Rodriguez MD PhD Active BACTRIM DS 800-160 MG TAB 1 tab by mouth twice daily TRIMETHOPRIM-SULFAMETHOXAZOLE 64051939413 No Longer Active Sahara Rodriguez MD PhD Active [facility] PROBIOTIC ORAL CHEW 2 daily po PROBIOTIC PRODUCT 70154839794 No Longer Active Sahara Rodriguez MD PhD Active BACTRIM DS 800-160 MG TABS 1 po BID x 7 days SULFAMETHOXAZOLE-TRIMETHOPRIM 29491450381 No Longer Active Vishal Hui MD Active CHANTIX STARTING MONTH EARNEST 0.5 MG X 11 & 1 MG X 42 TABS 0.5mg daily for 3 days , then 0.5mg BID for 4 days, then 1mg BID VARENICLINE TARTRATE 81151299161 No Longer Active TAMARA Gray Active METOPROLOL TARTRATE 50 MG TAB 1 po bid METOPROLOL TARTRATE 94049948500 Active Vishal Hui MD Active VERAPAMIL HCL CR 120 MG TAB CR 1 po bid VERAPAMIL HCL 51982753668 No Longer Active Vishal Hui MD Active METOPROLOL SUCCINATE 50 MG TB24 1 tablet by mouth daily METOPROLOL SUCCINATE 45257026454 No Longer Active Vishal Hui MD Active TRAMADOL HCL 50 MG TABS 1-2 po TID PRN Pain TRAMADOL HCL 84564652410 Active Luigi Martínez ENGINEERING LAB TECHNICIAN Active SAPHRIS 10 MG SUBL 1 tab po bid ASENAPINE MALEATE 65337790926 No Longer Active Vishal Hui MD Active LISINOPRIL 20 MG TABS 1 tab po qd LISINOPRIL 14846191728 No Longer Active Vishal Hui MD Active BENADRYL 25 MG CAP 2 po tid prn anxiety DIPHENHYDRAMINE HCL 22729219441 Active Vishal Hui MD Active LATUDA 20 MG TABS Take one by mouth daily LURASIDONE HCL 62766526392 No Longer Active Vishal Hui MD Active TRAZODONE HCL 50 MG TABS 1/2 tab po qd prn for anxiety TRAZODONE HCL 04988908336 No Longer Active Vishal Hui MD Active PIROXICAM 20 MG CAPS 1 cap po qd PRN Pain PIROXICAM 90119393535 Active Vishal Hui MD Active OMEPRAZOLE 20 MG TBEC 1 po q a.m. 30min prior to first food intake OMEPRAZOLE 76232337597 Active Vishal Hui MD Active RANITIDINE HCL 150 MG CAPS 1 twice a day RANITIDINE HCL 48495803726 Active Vishal Hui MD Active LINZESS 290 MCG CAPS Take one by mouth daily LINACLOTIDE 19233480136 No Longer Active Vishal Hui MD Active SAPHRIS 5 MG SUBL 1 tab po qd ASENAPINE MALEATE 58604532708 No Longer Active Vishal Hui MD Active ZALEPLON 10 MG CAPS 1 cap po every other night ZALEPLON 28112720431 No Longer Active Vishal Hui MD Active LYRICA 50 MG CAPS 1 tab po TID PREGABALIN 44125547717 No Longer Active Vishal Hui MD Active LORATADINE 10 MG TABS 1 tab po qd LORATADINE 56810301220 No Longer Active Vishal Hui MD Active VERAPAMIL HCL ER 180 MG CR-TABS 1 tab po bid VERAPAMIL HCL 05128345012 No Longer Active Vishal Hui MD Active MIRALAX POWD 1 capfull once daily POLYETHYLENE GLYCOL 3350 07207118909 No Longer Active Vishal Hui MD Active PREDNISONE 20 MG TABS 1 tab po qd PREDNISONE 54536753382 No Longer Active Renzo Thornton DO Active LEVOFLOXACIN 500 MG TABS 1 tab po qd LEVOFLOXACIN 00494830554 No Longer Active Renzo Thornton DO Active BUSPIRONE HCL 15 MG TABS 1 tab po TID BUSPIRONE HCL 16710849176 No Longer Active Renzo Thornton DO Active BENZTROPINE MESYLATE 1 MG TABS 1 tab po qd BENZTROPINE MESYLATE 32272890479 No Longer Active Renzo Thornton DO Active ATENOLOL 25 MG TABS 1 tab po qd ATENOLOL 98707068370 No Longer Active Renzo Thornton DO Active ESCITALOPRAM OXALATE 20 MG TABS 1 tab po qd ESCITALOPRAM OXALATE 64192385945 No Longer Active Renzo Thornton DO Active ADVAIR DISKUS 250-50 MCG/DOSE AEPB 1 puff BID FLUTICASONE-SALMETEROL 06631082564 No Longer Active Renzo Thornton DO Active PREDNISONE 20 MG TAB 2 tabs daily for 3 days, 1 tab daily for 3 days, 1/2 tab daily for 2 days PREDNISONE 51125868931 No Longer Active Vishal Hui MD Active CEFDINIR 300 MG CAPS by mouth twice a day CEFDINIR 75394271610 No Longer Active Vishal Hui MD Active LANSOPRAZOLE 30 MG CPDR 1 cap po qd LANSOPRAZOLE 91819122101 No Longer Active Vishal Hui MD Active BACLOFEN 20 MG TABS 1 tab po tid BACLOFEN 26412635518 No Longer Active Vishal Hui MD Active ADVAIR DISKUS 250-50 MCG/DOSE AEPB 1 puff BID ADVAIR DISKUS 250-50 MCG/DOSE AEPB FLUTICASONE-SALMETEROL Inactive ESCITALOPRAM OXALATE 20 MG TABS 1 tab po qd ESCITALOPRAM OXALATE 20 MG TABS 674190 ESCITALOPRAM OXALATE Inactive ATENOLOL 25 MG TABS 1 tab po qd ATENOLOL 25 MG TABS 237237 ATENOLOL Inactive BENZTROPINE MESYLATE 1 MG TABS 1 tab po qd BENZTROPINE MESYLATE 1 MG TABS 278667 BENZTROPINE MESYLATE Inactive BUSPIRONE HCL 15 MG TABS 1 tab po TID BUSPIRONE HCL 15 MG TABS 696439 BUSPIRONE HCL Inactive LEVOFLOXACIN 500 MG TABS 1 tab po qd LEVOFLOXACIN 500 MG TABS 424253 LEVOFLOXACIN Inactive PREDNISONE 20 MG TABS 1 tab po qd PREDNISONE 20 MG TABS 122348 PREDNISONE Inactive MIRALAX POWD 1 capfull once daily MIRALAX POWD 376944 POLYETHYLENE GLYCOL 3350 Inactive VERAPAMIL HCL ER 180 MG CR-TABS 1 tab po bid VERAPAMIL HCL ER 180 MG CR-TABS VERAPAMIL HCL Inactive LORATADINE 10 MG TABS 1 tab po qd LORATADINE 10 MG TABS 062839 LORATADINE Inactive LYRICA 50 MG CAPS 1 [...] for anxiety TRAZODONE HCL 50 MG TABS 067219 TRAZODONE HCL Inactive LATUDA 20 MG TABS Take one by mouth daily LATUDA 20 MG TABS LURASIDONE HCL Inactive LISINOPRIL 20 MG TABS 1 tab po qd LISINOPRIL 20 MG TABS 301137 LISINOPRIL Inactive SAPHRIS 10 MG SUBL 1 [...] twice daily BACTRIM DS 800-160 MG TAB 836679 TRIMETHOPRIM-SULFAMETHOXAZOLE Inactive MULTIVITAMINS CAPS Take one by mouth daily MULTIVITAMINS CAPS MULTIPLE VITAMIN Inactive MELATONIN 3 MG CAPS 2 po q hs MELATONIN 3 MG CAPS 898633 MELATONIN Inactive KEFLEX 500 MG ORAL CAPS 1 cap QID by mouth KEFLEX 500 MG ORAL CAPS 904001 CEPHALEXIN Inactive CLINDAMYCIN HCL 150 MG CAPS 1 four times a day CLINDAMYCIN HCL 150 MG CAPS 926697 CLINDAMYCIN HCL Inactive DIFLUCAN 150 MG TAB 1 tablet by mouth daily DIFLUCAN 150 MG TAB 716145 FLUCONAZOLE Inactive PROZAC 20 MG CAP Take one by mouth daily PROZAC 20 MG CAP 637999 FLUOXETINE HCL Inactive IBUPROFEN 600 MG TAB 1 po TID PRN IBUPROFEN 600 MG TAB 875633 IBUPROFEN Inactive VYVANSE 40 MG CAPS 1 daily, VYVANSE 40 MG CAPS LISDEXAMFETAMINE DIMESYLATE Inactive TRAZODONE HCL 100 MG TAB take 1 at bedtime TRAZODONE HCL 100 MG TAB 320202 TRAZODONE HCL Inactive AMITRIPTYLINE HCL 100 MG TAB one at hs AMITRIPTYLINE HCL 100 MG TAB 000407 AMITRIPTYLINE HCL Inactive AMLODIPINE BESYLATE 5 MG TABS 1 tablet by mouth daily AMLODIPINE BESYLATE 5 MG TABS 084132 AMLODIPINE BESYLATE Inactive LATUDA 80 MG TABS Take one by mouth daily LATUDA 80 MG TABS LURASIDONE HCL Inactive SAPHRIS 5 MG SUBL 1 po bid SAPHRIS 5 MG SUBL ASENAPINE MALEATE Inactive CEFDINIR 300 MG CAPS by mouth twice a day CEFDINIR 300 MG CAPS 315061 CEFDINIR Inactive PREDNISONE 20 MG TAB 2 tabs daily for 3 days, 1 tab daily for 3 days, 1/2 tab daily for 2 days PREDNISONE 20 MG TAB 134502 PREDNISONE Inactive BACTRIM DS 800-160 MG TABS 1 po BID x 7 days BACTRIM DS 800-160 MG TABS 19820521 SULFAMETHOXAZOLE-TRIMETHOPRIM Inactive DIFLUCAN 150 MG TABS 1 pill every other day x 2 doses DIFLUCAN 150 MG TABS 629885 FLUCONAZOLE Inactive BACTRIM DS 800-160 MG TABS [...] % 11.6-14.8 platelet count 394 10^3/MM^3 10*3/mm3 826-723 8543/01/11 leukocyte count, blood 13.8 10^3/MM^3 10*3/mm3 4.6-10.2 [...] Panel - Chemistry sodium, serum 139 mmol/L 683-091 2829/12/03 carbon dioxide, venous blood 28.5 mmol/L 21.0-32.0 [...] 5.5 % 4.3-6.0 cholesterol, serum 159 mg/dL 831-731 1753/12/03 triglyceride, serum, fasting 118 mg/dL 30-200 HDL [...] ... - Chemistry sodium, serum 140 mmol/L 616-800 5219/05/28 potassium, serum 4.2 mmol/L 3.5-5.2 chloride, serum [...] Panel - Chemistry sodium, serum 141 mmol/L 434-440 8954 potassium, serum 4.3 mmol/L 3.5-5.2 chloride, serum 106 mmol/L 98-107 carbon dioxide, venous blood 25.7 mmol/L 21.0-32.0 blood glucose 119 mg/dL 65-110 urea nitrogen, blood 22 mg/dL 7-18 creatinine, serum 0.90 mg/dL 0.60-1.30 alanine aminotransferase (SGPT), serum 28 U/L -78 aspartate aminotransferase (SGOT), serum 13 U/L 15-37 calcium, serum 8.5 mg/dL 8.5-10.1 bilirubin, serum, total 0.20 mg/dL 0.00-1.00 sodium, serum 139 mmol/L 965-703 1865/12/22 carbon dioxide, venous blood 26.8 mmol/L 21.0-32.0 [...] Rate - Chemistry sodium, serum 139 mmol/L 354-824 6627/12/11 carbon dioxide, venous blood 25.4 mmol/L 21.0-32.0 [...] 5.5 5.0-8.5 Lab Report: UADIP W/MICRO, AUTO, [facility] - Chemistry protein, total urine random Negative mg/dL Negative RBC, urine, dipstick Negative Negative human chorionic gonadotropin, urine, qualitative (urine test) Negative Negative Lab Report: UADIP W/MICRO, AUTO, [facility] - Urinalysis urobilinogen, urine, semiquantitative (dipstick) 0.2 Normal leukocyte esterase, urine, by dipstick Negative Negative nitrite, urine, semiquantitative Negative Negative glucose, urine, semiquantitative Negative Negative ketones, urine, by test strip Negative Negative bilirubin, urine Negative Negative urine color Yellow Colorless;Lightyellow;Straw;Yellow appearance, urine Clear Clear specific gravity, urine 1.025 1.000-1.030 pH, urine, semiquantitative 7.0 5.0-8.5 Lab Report: Varicella-Zoater Inga IgG,IgM/19362, HEP Be Antibody/556, RUB ... - Serology rubella antibody, serum, IgG 2.88 Encounters Code Encounter Date Provider Facility CPT-18489 Level 4 Est. Patient 09:00:51 CONCRETE CURER Vishal Hui MD [facility] CPT-08606 Level 3 Est. Patient 11:37:33 CONCRETE CURER Vishal Hui MD [facility] CPT-65463 Level 3 Est. Patient 08:41:09 CONCRETE CURER Vishal Hui MD [facility] CPT-79327 Level 4 Est. Patient 10:19:35 CONCRETE CURER Vishal Hui MD [facility] CPT-79113 Level 3 Est. Patient 13:35:45 CDT Vishal Hui MD [facility] CPT-97951 Level 4 Est. Patient 10:08:37 CDT Vishal Hui MD [facility] CPT-96395 Level 3 Est. Patient 11:22:10 CDT Vishal Hui MD [facility] CPT-31049 Level 3 Est. Patient 11:03:32 CDT Sahara Rodriguez MD [facility]-63205 Level 3 Est. Patient 09:41:35 CDT Vishal Hui MD [facility] CPT-71467 Level 3 Est. Patient 12:00:41 CDT Neeraj Collins MD [facility] CPT-87662 Level 3 Est. Patient 09:16:24 CDT Vishal Hui MD [facility] CPT-12520 Level 4 Est. Patient 13:59:09 CDT Neeraj Collins MD [facility]-91382 Level 3 Est. Patient 15:19:43 CDT Renzo Thornton DO [facility] CPT-92925 Level 3 Est. Patient 18:10:26 CDT Sahara Rodriguez MD [facility]-39033 Level 3 Est. Patient 14:49:50 CDT Vishal Hui MD [facility] CPT-96887 Level 4 Est. Patient 18:41:46 CDT Neeraj Collins MD [facility]-67768 Level 4 Est. Patient 09:18:38 CONCRETE CURER Vishal Hui MD [facility] CPT-66647 Level 3 Est. Patient 14:43:55 CONCRETE CURER Vishal Hui MD [facility] CPT-76932 Level 3 Est. Patient 15:26:33 CONCRETE CURER Sahara Rodriguez MD PhD [facility] CPT-72752 Level 3 Est. Patient 10:32:14 CONCRETE CURER Vishal Hui MD [facility] CPT-81407 Level 3 Est. Patient 15:12:52 CONCRETE CURER Vishal Hui MD [facility] CPT-35627 Level 4 Est. Patient 09:19:27 CDT Vishal Hui MD [facility] CPT-26983 Level 3 Est. Patient 15:53:00 CDT Renzo Thornton [facility] CPT-11123 Level 3 Est. Patient 15:50:30 CDT Renzo Thornton [facility] CPT-85575 Level 3 Est. Patient 16:55:24 CDT Vishal Hui MD [facility] Procedures Code Procedure Name Date Entry Date Standard Description CPT-J3420 Vitamin B12 1000mcg (Cyanocobalamin) 16:57:46 CDT 08/14 CPT-19336 Recombivax HB Injection Suspension 5 MCG/0.5ML 08:37:50 CONCRETE CURER CPT-94851 Immunization Single Admin 08:37:50 CONCRETE CURER CPT-J3420 Vitamin B12 1000mcg (Cyanocobalamin) 08:32:16 CONCRETE CURER 03/11 CPT-40791 Abx/Therapy Injection 08:32:16 CONCRETE CURER CPT-84065 Chest 2V Frontal and Lat 11:46:38 CONCRETE CURER CPT-77376 Venipuncture Draw Fee 09:12:45 CONCRETE CURER CPT-J3420 Vitamin B12 1000mcg (Cyanocobalamin) 08:50:15 CONCRETE CURER 02/08 CPT-13870 Abx/Therapy Injection 08:50:15 CONCRETE CURER CPT-Cryo Cryotherapy 10:19:35 CONCRETE CURER CPT-000 Give Appropriate Flu Vaccine 09:22:16 CDT CPT-J3420 Vitamin B12 1000mcg (Cyanocobalamin) 19:08:57 CDT 01/11 CPT-31692 Abx/Therapy Injection 19:08:57 CDT CPT-J3420 Vitamin B12 1000mcg (Cyanocobalamin) 08:19:08 CDT 12/11 CPT-68055 Abx/Therapy Injection 08:19:08 CDT CPT-J3420 Vitamin B12 1000mcg (Cyanocobalamin) 14:48:00 CDT 11/09 CPT-96424 Abx/Therapy Injection 14:47:59 CDT CPT-J3420 Vitamin B12 1000mcg (Cyanocobalamin) 08:34:04 CDT 10/09 CPT-19433 Abx/Therapy Injection 08:34:04 CDT CPT-J3420 Vitamin B12 1000mcg (Cyanocobalamin) 09:18:52 CDT 09/11 CPT-48754 Abx/Therapy Injection 09:18:52 CDT CPT-J3420 Vitamin B12 1000mcg (Cyanocobalamin) 08:35:44 CDT 09/04 CPT-92930 Abx/Therapy Injection 08:35:44 CDT CPT-77085 Immunization Single Admin 11:07:16 CDT CPT-56591 Hepatitis B adult IM 11:07:16 CDT CPT-J3420 Vitamin B12 1000mcg (Cyanocobalamin) 11:00:49 CDT 08/28 CPT-J1040 Depo Medrol 80 mg (Methyl Prednisolone Acetate) 11:00: 49 CDT CPT-97480 Abx/Therapy Injection 11:00:49 CDT CPT-J1040 Depo Medrol 80 mg (Methyl Prednisolone Acetate) 09:16: 23 CDT CPT-J3420 Vitamin B12 1000mcg (Cyanocobalamin) 08:27:05 CDT 08/20 CPT-88611 Abx/Therapy Injection 08:27:05 CDT CPT-11560 Recombivax HB Injection Suspension 5 MCG/0.5ML 10:00:41 CDT CPT-77147 Administration single or combination vaccine inc oral 10 :00:41 CDT CPT-85169 Sono transvag pelvis non OB uterus ovaries cervix 16:36: 57 CDT CPT-16568 LS spine comp w obliq 09:50:55 CONCRETE CURER CPT-68899 Abd compl w upright 09:50:55 CONCRETE CURER CPT-J1100 Decadron 4mg (Dexamethasone) 15:51:24 CONCRETE CURER CPT-J1030 Depo Medrol 40 mg (Methyl Prednisolone Acetate) 15:51: 24 CONCRETE CURER CPT-19656 Abx/Therapy Injection 15:51:24 CONCRETE CURER CPT-J1100 Decadron 4mg (Dexamethasone) 15:26:33 CONCRETE CURER CPT-J1030 Depo Medrol 40 mg (Methyl Prednisolone Acetate) 15:26: 33 CONCRETE CURER CPT-25549 Sono retroperitoneal complete kidneys and bladder 17:15: 30 CDT CPT-43271 Abd compl w upright 16:09:25 CDT CPT-J1100 Decadron 8mg (Dexamethasone) 17:07:57 CDT CPT-05843 Abx/Therapy Injection 17:07:57 CDT CPT-J1100 Decadron 8mg (Dexamethasone) 16:55:24 CDT CPT-01172 Chest 2V Frontal and Lat 16:32:44 CDT
--- OUTSIDE RECORDS SUMMARY | 2016-11-05 00:34 | XMS REPORT ---
Author Author [facility] Organization [facility] Address [address] [place], [place] [id number] Phone [phone] Summary purpose TRANSITION OF CARE AUTO GENERATION [...] tests and/or laboratory data RESULTS Radiology Results [id number]:18:00 ABD SONO COMPLETE PACs Image DATE OF EXAM: 2015 [id number] COMPLETE SONO : RADIOLOGY REPORT DATE OF [...] Signed by: On: DATE OF EXAM: 2015 [id number] COMPLETE SONO : RADIOLOGY REPORT DATE OF [...] on 2015-06-18 at 20:18:34. Previous status was IA. History of procedures No procedures recorded for [...]
--- OUTSIDE RECORDS SUMMARY | 2016-11-05 00:34 | XMS REPORT | Clinical Summary ---
Author Author Admin, E Organization [facility] Address Unknown Phone Unavailable Allergies, Adverse Reactions, [...] breath Nocturnal hypoxia 799.02 Active Fabiola Johnson [employer] Hypoxemia Neck pain 723.1 Resolved Vishal [...] with routine healing Active Neeraj Collins MD Pneumonia, organism unspecified ICD-486 Inactive Vishal [...] TABS 1/2-1 tab TID PRN TRAMADOL HCL 87748062675 Active Lynda Ninoska [employer] Active PROAIR HFA 108 (90 BASE) MCG/ACT AERS 2 puffs four times a day as needed 2015 ALBUTEROL SULFATE 45237495636 Active Ahmet Carbajal MD Active EQ NICOTINE 21 MG/24HR TRANS PT24 Apply daily to stop smoking NICOTINE 73121576979 Active Ahmet Carbajal MD Active BACTRIM DS 800-160 MG TABS 1 twice a day SULFAMETHOXAZOLE- TRIMETHOPRIM 71136847497 Active Ahmet Carbajal MD Active ADVAIR DISKUS 250-50 MCG/DOSE INH AEPB 1 puff twice a day for asthma FLUTICASONE-SALMETEROL 93208586052 Active Ahmet Carbajal MD Active MONISTAT 7 COMBO PACK WOODROW 100 & 2 MG-% (9GM) VAG KIT 1 applicatorful per vagina q pm x 7 MICONAZOLE NITRATE 53047738560 No Longer Active Ahmet Carbajal MD Active FLAGYL 500 MG TAB 1 tablet by mouth bid METRONIDAZOLE 16755678677 No Longer Active Ahmet Carbajal MD Active OXYCODONE HCL ER 10 MG ORAL T12A 1/2 tab by mouth every 4 hours prn OXYCODONE HCL 45153815119 No Longer Active Ahmet Carbajal MD Active METHYLPREDNISOLONE 4 MG ORAL TABS po daily METHYLPREDNISOLONE 71875802738 No Longer Active Ahmet Carbajal MD Active LEVOFLOXACIN 500 MG ORAL TABS po daily LEVOFLOXACIN 07612098355 No Longer Active Ahmet Carbajal MD Active VIIBRYD 10 MG ORAL TABS Take 1 tablet once a day VILAZODONE HCL 43252434154 No Longer Active Ahmet Carbajal MD Active TOPAMAX 50 MG ORAL TABS 1 tab twice daily TOPIRAMATE 22391770015 No Longer Active Ahmet Carbajal MD Active DICLOFENAC SODIUM 50 MG TBEC 1 tablet by mouth four times daily PRN Pain 2015 DICLOFENAC SODIUM 11267591902 No Longer Active Ahmet Carbajal MD Active ADZENYS XR-ODT 6.3 MG ORAL TBED 1 tab po daily for ADHD AMPHETAMINE 72847679843 No Longer Active Ahmet Carbajal MD Active CHANTIX 1 MG TABS 1 twice a day to help quit smoking VARENICLINE TARTRATE 24692422795 No Longer Active Dipika Burgos MD Active CHANTIX STARTING MONTH EARNEST 0.5 MG X 11 & 1 MG X 42 TABS take as directed 2015 VARENICLINE TARTRATE 63969884849 No Longer Active Dipika Burgos MD Active TESSALON PERLES 100 MG CAP 1 to 2 tablets by mouth 3 times daily as needed for cough BENZONATATE 25317408444 No Longer Active Luigi Martínez [employer] Active ABILIOMAR MAINTENA 400 MG IM SUSR 400mg injection every 26 days ARIPIPRAZOLE 99886875775 Active Silvia Casey [employer] Active IMITREX 50 MG ORAL TABS 0.5 po x 1 PRN Headache. May repeat dose x 1 in 2 hours if needed SUMATRIPTAN SUCCINATE 42280111145 Active Suzan Boo [employer] Active HYDROCODONE-ACETAMINOPHEN 5-325 MG TABS 1 to 2 four times a day as needed for pain use until can be seen by specialist HYDROCODONE- ACETAMINOPHEN 70347380400 No Longer Active Vishal Hui MD Active PROAIR HFA 108 (90 BASE) MCG/ACT AERS 2 puffs four times a day as needed 2015 ALBUTEROL SULFATE 34772519679 No Longer Active Vishal Hui MD Active PREDNISONE 20 MG TABS 2 daily for 5 days then 1 daily for 5 days PREDNISONE 54893557077 No Longer Active Vishla Hui MD Active ZITHROMAX Z-EARNEST 250 MG TABS 2 today and then 1 daily for 4 days AZITHROMYCIN 96366391952 No Longer Active Vishal Hui MD Active DICLOFENAC POTASSIUM TABS Take 1 tablet twice a day (pt. is not sure of the dose.) DICLOFENAC POTASSIUM TABS 57626971119 No Longer Active Vishal Hui MD Active VERAPAMIL HCL ER 120 MG ORAL CR-TABS Take 1 tablet by mouth twice a day. VERAPAMIL HCL 92378007003 Active Vishal Hui MD Active FLAGYL 500 MG TAB 1 tablet by mouth bid METRONIDAZOLE 42298805252 No Longer Active Vishal Hui MD Active FLUTICASONE PROPIONATE 50 MCG/ACT SUSP 2 sprays each nostril daily before bed. FLUTICASONE PROPIONATE 41694937382 Active Fabiola Johnson APRN Active BENADRYL 25 MG CAP 4 po at bedtime for insomnia DIPHENHYDRAMINE HCL 92937645507 Active Fabiola Johnson APRN Active KLONOPIN 1 MG ORAL TABS 1 tab po TID CLONAZEPAM 08070450755 Active Fabiola Johnson APRN Active VALIUM 5 MG TAB Take 1-2 tablets daily DIAZEPAM 54120517209 No Longer Active Fabiola Johnson APRN Active METOPROLOL TARTRATE 25 MG ORAL TABS 1/2 tablet twice daily for heart rate and blood pressure METOPROLOL TARTRATE 86568507488 No Longer Active Fabiola Johnson APRN Active MIRALAX ORAL POWD 17GMS DAILY IN WATER POLYETHYLENE GLYCOL 3350 24158889659 Active Vishal Hui MD Active MIRALAX PACK 1 po qd PRN Constipation POLYETHYLENE GLYCOL 3350 82345772285 No Longer Active Ahmet Carbajal MD Active MINIPRESS 2 MG CAPS 4 cap po at night PRAZOSIN HCL 95702599667 No Longer Active Ahmet Carbajal MD Active PIROXICAM 20 MG CAPS 1 cap po qd PRN Pain PIROXICAM 56384085026 No Longer Active Ahmet Carbajal MD Active TRAMADOL HCL 50 MG TABS 1-2 po TID PRN Pain TRAMADOL HCL 15220595842 No Longer Active Ahmet Carbajal MD Active METOPROLOL TARTRATE 50 MG TAB 1 po bid METOPROLOL TARTRATE 03809849492 No Longer Active Ahmet Carbajal MD Active ABILIFY 15 MG ORAL TABS 1 tab daily ARIPIPRAZOLE 17715189195 No Longer Active Ahmet Carbajal MD Active PROZAC 20 MG ORAL CAPS 1 tab daily FLUOXETINE HCL 44194091448 No Longer Active Ahmet Carbajal MD Active AMBIEN 5 MG ORAL TABS 1 tab at bedtime ZOLPIDEM TARTRATE 46827397088 No Longer Active Ahmet Carbajal MD Active PREDNISONE 20 MG TAB 2 tabs daily for 4 days, 1 tab daily for 4 days, 1/2 tab daily for 4 days PREDNISONE 36778843080 No Longer Active Ahmet Carbajal MD Active KEFLEX 500 MG CAP 1 po TID x 10 days CEPHALEXIN 40810601314 No Longer Active Vishal Hui MD Active SAPHRIS 5 MG SUBL 1 po bid ASENAPINE MALEATE 26459163242 No Longer Active Luigi Martínez APRN Active LATUDA 80 MG TABS Take one by mouth daily LURASIDONE HCL 99149498750 No Longer Active Jillina Fralebron [employer]CH[employer]IC Active AMLODIPINE BESYLATE 5 MG TABS 1 tablet by mouth daily AMLODIPINE BESYLATE 72789406906 No Longer Active Jillina Fralebron [employer]CH[employer]IC Active AMITRIPTYLINE HCL 100 MG TAB one at hs AMITRIPTYLINE HCL 30608989367 No Longer Active Vishal Hui MD Active TRAZODONE HCL 100 MG TAB take 1 at bedtime TRAZODONE HCL 32703914927 No Longer Active Vishal Hui MD Active VYVANSE 40 MG CAPS 1 daily, LISDEXAMFETAMINE DIMESYLATE 69561988891 No Longer Active Vishal Hui MD Active IBUPROFEN 600 MG TAB 1 po TID PRN IBUPROFEN 11085607774 No Longer Active Vishal Hui MD Active PROZAC 20 MG CAP Take one by mouth daily FLUOXETINE HCL 51533751919 No Longer Active Vishal Hui MD Active ZOFRAN 4 MG TABS 1 po q6hr PRN Nausea ONDANSETRON HCL Active Vishal Hui MD Active BACTRIM DS 800-160 MG TABS 1 pill by mouth twice daily SULFAMETHOXAZOLE-TRIMETHOPRIM 70944437015 No Longer Active Sahara Rodriguez MD PhD Active DIFLUCAN 150 MG TAB 1 tablet by mouth daily FLUCONAZOLE 25003396909 No Longer Active Vishal Hui MD Active TIZANIDINE HCL 4 MG TABS 1 po q6hr PRN Muscle Spasm/Back Pain TIZANIDINE HCL 99429090347 Active Vishal Hui MD Active CLINDAMYCIN HCL 150 MG CAPS 1 four times a day CLINDAMYCIN HCL 26980011602 No Longer Active Neeraj Collins MD Active KEFLEX 500 MG ORAL CAPS 1 cap QID by mouth CEPHALEXIN 88044349012 No Longer Active Neeraj Collins MD Active DIFLUCAN 150 MG TABS 1 pill every other day x 2 doses FLUCONAZOLE 45594914183 No Longer Active Sahara Rodriguez MD PhD Active MELATONIN 3 MG CAPS 2 po q hs MELATONIN 74904594843 No Longer Active Sahara Rodriguez MD PhD Active MULTIVITAMINS CAPS Take one by mouth daily MULTIPLE VITAMIN 83490286831 No Longer Active Sahara Rodriguez MD PhD Active BACTRIM DS 800-160 MG TAB 1 tab by mouth twice daily TRIMETHOPRIM-SULFAMETHOXAZOLE 23074123029 No Longer Active Sahara Rodriguez MD PhD Active [facility] PROBIOTIC ORAL CHEW 2 daily po PROBIOTIC PRODUCT 58797349418 No Longer Active Sahara Rodriguez MD PhD Active BACTRIM DS 800-160 MG TABS 1 po BID x 7 days SULFAMETHOXAZOLE-TRIMETHOPRIM 75683509038 No Longer Active Vishal Hui MD Active CHANTIX STARTING MONTH EARNEST 0.5 MG X 11 & 1 MG X 42 TABS 0.5mg daily for 3 days , then 0.5mg BID for 4 days, then 1mg BID VARENICLINE TARTRATE 49781965001 No Longer Active TAMARA Gray Active VERAPAMIL HCL CR 120 MG TAB CR 1 po bid VERAPAMIL HCL 96445045028 No Longer Active Vishal Hui MD Active METOPROLOL SUCCINATE 50 MG TB24 1 tablet by mouth daily METOPROLOL SUCCINATE 00520673426 No Longer Active Vishal Hui MD Active SAPHRIS 10 MG SUBL 1 tab po bid ASENAPINE MALEATE 32916868907 No Longer Active Vishal Hui MD Active LISINOPRIL 20 MG TABS 1 tab po qd LISINOPRIL 43133277863 No Longer Active Vishal Hui MD Active LATUDA 20 MG TABS Take one by mouth daily LURASIDONE HCL 97983410238 No Longer Active Vishal Hui MD Active TRAZODONE HCL 50 MG TABS 1/2 tab po qd prn for anxiety TRAZODONE HCL 61481751817 No Longer Active Vishal Hui MD Active OMEPRAZOLE 20 MG TBEC 1 po q a.m. 30min prior to first food intake OMEPRAZOLE 65213860742 Active Vishal Hui MD Active RANITIDINE HCL 150 MG CAPS 1 twice a day RANITIDINE HCL 46163888287 Active Luigi Martínez APRN Active LINZESS 290 MCG CAPS Take one by mouth daily LINACLOTIDE 95811152108 No Longer Active Vishal Hui MD Active SAPHRIS 5 MG SUBL 1 tab po qd ASENAPINE MALEATE 51473556189 No Longer Active Vishal Hui MD Active ZALEPLON 10 MG CAPS 1 cap po every other night ZALEPLON 63284898860 No Longer Active Vishal Hui MD Active LYRICA 50 MG CAPS 1 tab po TID PREGABALIN 80211882507 No Longer Active Vishal Hui MD Active LORATADINE 10 MG TABS 1 tab po qd LORATADINE 84735688004 No Longer Active Vishal Hui MD Active VERAPAMIL HCL ER 180 MG CR-TABS 1 tab po bid VERAPAMIL HCL 03818023399 No Longer Active Vishal Hui MD Active MIRALAX POWD 1 capfull once daily POLYETHYLENE GLYCOL 3350 34206560469 No Longer Active Vishal Hui MD Active PREDNISONE 20 MG TABS 1 tab po qd PREDNISONE 95772401526 No Longer Active Renzo Thornton DO Active LEVOFLOXACIN 500 MG TABS 1 tab po qd LEVOFLOXACIN 95581387121 No Longer Active Renzo Thornton DO Active BUSPIRONE HCL 15 MG TABS 1 tab po TID BUSPIRONE HCL 60468267352 No Longer Active Renzo Thornton DO Active BENZTROPINE MESYLATE 1 MG TABS 1 tab po qd BENZTROPINE MESYLATE 97189793030 No Longer Active Renzo Thornton DO Active ATENOLOL 25 MG TABS 1 tab po qd ATENOLOL 31589724566 No Longer Active Renzo Thornton DO Active ESCITALOPRAM OXALATE 20 MG TABS 1 tab po qd ESCITALOPRAM OXALATE 77430426527 No Longer Active Renzo Thornton DO Active ADVAIR DISKUS 250-50 MCG/DOSE AEPB 1 puff BID FLUTICASONE-SALMETEROL 84990213432 No Longer Active Renzo Thornton DO Active PREDNISONE 20 MG TAB 2 tabs daily for 3 days, 1 tab daily for 3 days, 1/2 tab daily for 2 days PREDNISONE 41291836605 No Longer Active Vishal Hui MD Active CEFDINIR 300 MG CAPS by mouth twice a day CEFDINIR 82877149914 No Longer Active Vishal Hui MD Active LANSOPRAZOLE 30 MG CPDR 1 cap po qd LANSOPRAZOLE 88669544167 No Longer Active Vishal Hui MD Active BACLOFEN 20 MG TABS 1 tab po tid BACLOFEN 31340177007 No Longer Active Vishal Hui MD Active ADVAIR DISKUS 250-50 MCG/DOSE AEPB 1 puff BID ADVAIR DISKUS 250-50 MCG/DOSE AEPB FLUTICASONE-SALMETEROL Inactive ESCITALOPRAM OXALATE 20 MG TABS 1 tab po qd ESCITALOPRAM OXALATE 20 MG TABS 828366 ESCITALOPRAM OXALATE Inactive ATENOLOL 25 MG TABS 1 tab po qd ATENOLOL 25 MG TABS 785111 ATENOLOL Inactive BENZTROPINE MESYLATE 1 MG TABS 1 tab po qd BENZTROPINE MESYLATE 1 MG TABS 601786 BENZTROPINE MESYLATE Inactive BUSPIRONE HCL 15 MG TABS 1 tab po TID BUSPIRONE HCL 15 MG TABS 316223 BUSPIRONE HCL Inactive LEVOFLOXACIN 500 MG TABS 1 tab po qd LEVOFLOXACIN 500 MG TABS 063615 LEVOFLOXACIN Inactive PREDNISONE 20 MG TABS 1 tab po qd PREDNISONE 20 MG TABS 825491 PREDNISONE Inactive MIRALAX POWD 1 capfull once daily MIRALAX POWD 885321 POLYETHYLENE GLYCOL 3350 Inactive VERAPAMIL HCL ER 180 MG CR-TABS 1 tab po bid VERAPAMIL HCL ER 180 MG CR-TABS VERAPAMIL HCL Inactive LORATADINE 10 MG TABS 1 tab po qd LORATADINE 10 MG TABS 592277 LORATADINE Inactive LYRICA 50 MG CAPS 1 tab po TID LYRICA 50 MG CAPS PREGABALIN Inactive ZALEPLON 10 MG CAPS 1 cap po every other night ZALEPLON 10 MG CAPS 903638 ZALEPLON Inactive SAPHRIS 5 MG SUBL 1 tab po qd SAPHRIS 5 MG SUBL ASENAPINE MALEATE Inactive TRAZODONE HCL 50 MG TABS 1/2 tab po qd prn for anxiety TRAZODONE HCL 50 MG TABS 234903 TRAZODONE HCL Inactive LATUDA 20 MG TABS Take one by mouth daily LATUDA 20 MG TABS LURASIDONE HCL Inactive LISINOPRIL 20 MG TABS 1 tab po qd LISINOPRIL 20 MG TABS 083431 LISINOPRIL Inactive SAPHRIS 10 MG SUBL 1 [...] twice daily BACTRIM DS 800-160 MG TAB 064120 TRIMETHOPRIM-SULFAMETHOXAZOLE Inactive MULTIVITAMINS CAPS Take one by mouth daily MULTIVITAMINS CAPS MULTIPLE VITAMIN Inactive MELATONIN 3 MG CAPS 2 po q hs MELATONIN 3 MG CAPS 040401 MELATONIN Inactive KEFLEX 500 MG ORAL CAPS 1 cap QID by mouth KEFLEX 500 MG ORAL CAPS 382818 CEPHALEXIN Inactive CLINDAMYCIN HCL 150 MG CAPS 1 four times a day CLINDAMYCIN HCL 150 MG CAPS 134194 CLINDAMYCIN HCL Inactive DIFLUCAN 150 MG TAB 1 tablet by mouth daily DIFLUCAN 150 MG TAB 985215 FLUCONAZOLE Inactive PROZAC 20 MG CAP Take one by mouth daily PROZAC 20 MG CAP 203860 FLUOXETINE HCL Inactive IBUPROFEN 600 MG TAB 1 po TID PRN IBUPROFEN 600 MG TAB 985583 IBUPROFEN Inactive VYVANSE 40 MG CAPS 1 daily, VYVANSE 40 MG CAPS LISDEXAMFETAMINE DIMESYLATE Inactive TRAZODONE HCL 100 MG TAB take 1 at bedtime TRAZODONE HCL 100 MG TAB 604828 TRAZODONE HCL Inactive AMITRIPTYLINE HCL 100 MG TAB one at hs AMITRIPTYLINE HCL 100 MG TAB 011254 AMITRIPTYLINE HCL Inactive AMLODIPINE BESYLATE 5 MG TABS 1 tablet by mouth daily AMLODIPINE BESYLATE 5 MG TABS 798972 AMLODIPINE BESYLATE Inactive LATUDA 80 MG TABS Take one by mouth daily LATUDA 80 MG TABS LURASIDONE HCL Inactive SAPHRIS 5 MG SUBL 1 po bid SAPHRIS 5 MG SUBL ASENAPINE MALEATE Inactive PREDNISONE 20 MG TAB 2 tabs daily for 4 days, 1 tab daily for 4 days, 1/2 tab daily for 4 days PREDNISONE 20 MG TAB 884831 PREDNISONE Inactive AMBIEN 5 MG ORAL TABS 1 tab at bedtime AMBIEN 5 MG ORAL TABS 971566 ZOLPIDEM TARTRATE Inactive PROZAC 20 MG ORAL CAPS 1 tab daily PROZAC 20 MG ORAL CAPS 971303 FLUOXETINE HCL Inactive ABILIFY 15 MG ORAL TABS 1 tab daily ABILIFY 15 MG ORAL TABS 853886 ARIPIPRAZOLE Inactive METOPROLOL TARTRATE 50 MG TAB 1 po bid METOPROLOL TARTRATE 50 MG TAB 030663 METOPROLOL TARTRATE Inactive TRAMADOL HCL 50 MG TABS 1-2 po TID PRN Pain TRAMADOL HCL 50 MG TABS 158303 TRAMADOL HCL Inactive PIROXICAM 20 MG CAPS 1 cap po qd PRN Pain PIROXICAM 20 MG CAPS 743527 PIROXICAM Inactive MINIPRESS 2 MG CAPS 4 cap po at night MINIPRESS 2 MG CAPS 346972 PRAZOSIN HCL Inactive MIRALAX PACK 1 po qd PRN Constipation MIRALAX PACK 894573 POLYETHYLENE GLYCOL 3350 Inactive METOPROLOL TARTRATE 25 MG ORAL TABS 1/2 tablet twice daily for heart rate and blood pressure METOPROLOL TARTRATE 25 MG ORAL TABS 024813 METOPROLOL TARTRATE Inactive VALIUM 5 MG TAB Take 1-2 tablets daily VALIUM 5 MG TAB 284338 DIAZEPAM Inactive FLAGYL 500 MG TAB 1 tablet by mouth bid FLAGYL 500 MG TAB 752293 METRONIDAZOLE Inactive DICLOFENAC POTASSIUM TABS Take 1 tablet twice a day (pt. is not sure of the dose.) DICLOFENAC POTASSIUM TABS DICLOFENAC POTASSIUM TABS Inactive ZITHROMAX Z-EARNEST 250 MG TABS 2 today and then 1 daily for 4 days ZITHROMAX Z-EARNEST 250 MG TABS 3380687 AZITHROMYCIN Inactive PREDNISONE 20 MG TABS 2 daily for 5 days then 1 daily for 5 days PREDNISONE 20 MG TABS 040123 PREDNISONE Inactive PROAIR HFA 108 (90 BASE) MCG/ACT AERS 2 puffs four times a day as needed 2015 PROAIR HFA 108 (90 BASE) MCG/ACT AERS ALBUTEROL SULFATE Inactive HYDROCODONE-ACETAMINOPHEN 5-325 MG TABS 1 to 2 four times a day as needed for pain use until can be seen by specialist HYDROCODONE- ACETAMINOPHEN 5-325 MG TABS 520484 HYDROCODONE-ACETAMINOPHEN Inactive TESSALON PERLES 100 MG CAP 1 to 2 tablets by mouth 3 times daily as needed for cough TESSALON PERLES 100 MG CAP 698473 BENZONATATE Inactive CHANTIX STARTING MONTH EARNEST 0.5 [...] Pain 2015 DICLOFENAC SODIUM 50 MG TBEC 211454 DICLOFENAC SODIUM Inactive TOPAMAX 50 MG ORAL TABS 1 tab twice daily TOPAMAX 50 MG ORAL TABS 973996 TOPIRAMATE Inactive VIIBRYD 10 MG ORAL TABS Take 1 tablet once a day VIIBRYD 10 MG ORAL TABS VILAZODONE HCL Inactive LEVOFLOXACIN 500 MG ORAL TABS po daily LEVOFLOXACIN 500 MG ORAL TABS 506497 LEVOFLOXACIN Inactive METHYLPREDNISOLONE 4 MG ORAL TABS po daily METHYLPREDNISOLONE 4 MG ORAL TABS 282306 METHYLPREDNISOLONE Inactive OXYCODONE HCL ER 10 MG ORAL T12A 1/2 tab by mouth every 4 hours prn OXYCODONE HCL ER 10 MG ORAL T12A OXYCODONE HCL Inactive FLAGYL 500 MG TAB 1 tablet by mouth bid FLAGYL 500 MG TAB 907042 METRONIDAZOLE Inactive MONISTAT 7 COMBO PACK WOODROW 100 & 2 MG-% (9GM) VAG KIT 1 applicatorful per vagina q pm x 7 MONISTAT 7 COMBO PACK WOODROW 100 & 2 MG-% (9GM) VAG KIT MICONAZOLE NITRATE Inactive CEFDINIR 300 MG CAPS by mouth twice a day CEFDINIR 300 MG CAPS 670699 CEFDINIR Inactive PREDNISONE 20 MG TAB 2 tabs daily for 3 days, 1 tab daily for 3 days, 1/2 tab daily for 2 days PREDNISONE 20 MG TAB 404162 PREDNISONE Inactive BACTRIM DS 800-160 MG TABS 1 po BID x 7 days BACTRIM DS 800-160 MG TABS 19820521 SULFAMETHOXAZOLE-TRIMETHOPRIM Inactive DIFLUCAN 150 MG TABS 1 pill every other day x 2 doses DIFLUCAN 150 MG TABS 826804 FLUCONAZOLE Inactive BACTRIM DS 800-160 MG TABS 1 pill by mouth twice daily BACTRIM DS 800-160 MG TABS 936483 SULFAMETHOXAZOLE-TRIMETHOPRIM Inactive KEFLEX 500 MG CAP 1 po TID x 10 days KEFLEX 500 MG CAP 715150 CEPHALEXIN Inactive Advance Directives Directive Description Start [...] % 11.6-14.8 platelet count 394 10^3/MM^3 10*3/mm3 222-191 3704/12/22 erythrocyte (RBC) count 4.19 10^6/MM^3 10*6/mm3 4.04-5.48 hemoglobin, blood 13.1 g/dL 12.0-16.0 hematocrit, blood 39.0 % 36.0-46.0 mean corpuscular volume, RBC 93 fL 80-97 mean corpuscular hemoglobin, RBC 31.4 pg 27.0-31.2 leukocyte count, blood 13.8 10^3/MM^3 10*3/mm3 4.6-10.2 mean corpuscular hemoglobin concentration, RBC 33.6 G/DL % 31.8- 35.4 red blood cell distribution width 14.4 % 11.6-14.8 platelet count 390 10^3/MM^3 10*3/mm3 001-290 9032/01/11 erythrocyte (RBC) count 4.46 10^6/MM^3 10*6/mm3 4.04-5.48 [...] 379 10^3/MM^3 10*3/mm3 142-424 Lab Report: Chlamydia/GC APTIMA/[id number] - Lab chlamydia DNA probe NOT DETECTED NOT DETECTED Lab Report: Chlamydia/GC [facility]TIMA/[id number] - Microbiology Neisseria gonorrhoeae DNA probe NOT DETECTED NOT DETECTED Lab Report: Comp. Metabolic Panel - Chemistry sodium, serum 139 mmol/L 767-153 3009/12/22 creatinine, serum 0.90 mg/dL 0.55-1.30 alanine aminotransferase (SGPT), serum 38 U/L 12-78 aspartate aminotransferase (SGOT), serum 19 U/L 15-37 calcium, serum 8.6 mg/dL 8.5-10.1 bilirubin, serum, total 0.30 mg/dL 0.00-1.00 carbon dioxide, venous blood 26.8 mmol/L 21.0-32.0 potassium, serum 4.2 mmol/L 3.5-5.2 chloride, serum 103 mmol/L 98-107 blood glucose 115 mg/dL 65-110 urea nitrogen, blood 20 mg/dL 7-18 sodium, serum 139 mmol/L 117-941 9796/01/11 carbon dioxide, venous blood 26.6 mmol/L 21.0-32.0 [...] 8 mg/dL 7-18 sodium, serum 140 mmol/L 088-369 7671/08/08 creatinine, serum 0.88 mg/dL 0.55-1.30 alanine aminotransferase (SGPT), serum 54 U/L - aspartate aminotransferase (SGOT), serum 29 U/L 15-37 calcium, serum 9.7 mg/dL 8.5-10.1 bilirubin, serum, total 0.30 mg/dL 0.00-1.00 carbon dioxide, venous blood 33.7 mmol/L 21.0-32.0 potassium, serum 5.0 mmol/L 3.5-5.2 chloride, serum 103 mmol/L 98-107 blood glucose 80 mg/dL 65-110 urea nitrogen, blood 13 mg/dL 7-18 sodium, serum 142 mmol/L 498-133 7816/06/08 creatinine, serum 0.75 mg/dL 0.55-1.30 alanine aminotransferase (SGPT), serum 49 U/L aspartate aminotransferase (SGOT), serum 28 U/L 15-37 calcium, serum 9.4 mg/dL 8.5-10.1 bilirubin, serum, total 0.30 mg/dL 0.00-1.00 Lab Report: Comp. Metabolic Panel, Erythrocyte Sed Rate - Chemistry sodium, serum 139 mmol/L 416-112 6580/12/11 creatinine, serum 0.96 mg/dL 0.55-1.30 alanine aminotransferase (SGPT), serum 34 U/L aspartate aminotransferase (SGOT), serum 12 U/L 15-37 calcium, serum 8.6 mg/dL 8.5-10.1 bilirubin, serum, total 0.20 mg/dL 0.00-1.00 carbon dioxide, venous blood 25.4 mmol/L 21.0-32.0 potassium, serum 3.9 mmol/L 3.5-5.2 chloride, serum 105 mmol/L 98-107 blood glucose 98 mg/dL 65-110 urea nitrogen, blood 18 mg/dL 7-18 Lab Report: [place] UADIP W/MICRO, AUTO - [...] Negative Negative pH, urine, semiquantitative 5.5 5.0-8.5 specific gravity, [...] mg/dL Encounters Code Encounter Date Provider Facility CPT-97630 Level 3 Est. Patient 15:07:[address] Neeraj Collins MD [facility] CPT-96801 Level 4 Est. Patient 14:45:[address] Ahmet Carbajal MD [facility] CPT-09869 Level 3 Est. Patient 13:59:59 CDT Luigi Martínez [facility] CPT-07229 Level 3 Est. Patient 18:18:53 CDT Neeraj Collins MD [facility] CPT-40692 Level 3 Est. Patient 15:50:44 CDT Vishal Hui MD [facility] CPT-74251 Level 3 Est. Patient 11:36:17 CDT Ahmet Carbajal MD [facility] CPT-74511 Level 3 Est. Patient 13:29:16 CDT Vishal Hui MD [facility] CPT-47359 Level 3 Est. Patient 14:27:52 CDT Neeraj Collins MD [facility] CPT-91331 Level 3 Est. Patient 08:56:03 CDT Luigi Martínez [facility] CPT-42667 Level 4 Est. Patient 12:11:48 CDT Fabiola Johnson [facility] CPT-98646 Level 3 New Patient 16:53:37 CDT Albert Caldera MD [facility] CPT-32900 Level 3 Est. Patient 11:25:49 CDT Renzo Thornton DO [facility] CPT-10931 Level 3 Est. Patient 15:22:01 CDT Ahmet Carbajal MD [facility] CPT-78827 Level 4 Est. Patient 09:00:[address] Vishal Hui MD [facility] CPT-55620 Level 3 Est. Patient 11:37:[address] Vishal Hui MD [facility] CPT-57962 Level 3 Est. Patient 08:41:[address] Vishal Hui MD [facility] CPT-53307 Level 4 Est. Patient 10:19:[address] Vishal Hui MD [facility] CPT-70058 Level 3 Est. Patient 13:35:45 CDT Vishal Hui MD [facility] CPT-11933 Level 4 Est. Patient 10:08:37 CDT Vishal Hui MD [facility] CPT-60760 Level 3 Est. Patient 11:22:10 CDT Visahl Hui MD [facility] CPT-89208 Level 3 Est. Patient 11:03:32 CDT Sahara Rodriguez MD [facility]-16328 Level 3 Est. Patient 09:41:35 CDT Vishal Hui MD [facility] CPT-35466 Level 3 Est. Patient 12:00:41 CDT Neeraj Collins MD [facility] CPT-09988 Level 3 Est. Patient 09:16:24 CDT Vishal Hui MD [facility] CPT-11493 Level 4 Est. Patient 13:59:09 CDT Neeraj Collins MD [facility] CPT-05735 Level 3 Est. Patient 15:19:43 CDT Renzo Thornton DO [facility] CPT-55521 Level 3 Est. Patient 18:10:26 CDT Sahara Rodriguez MD [facility] [place]-17845 Level 3 Est. Patient 14:49:50 CDT Vishal Hui MD [facility] CPT-83198 Level 4 Est. Patient 18:41:46 CDT Neeraj Collins MD [facility] CPT-67917 Level 4 Est. Patient 09:18:[address] Vishal Hui MD [facility] CPT-94847 Level 3 Est. Patient 14:43:[address] Vishal Hui MD [facility] [place]-[address]07 Level 3 Est. Patient 15:26:[address] Sahara Rodriguez MD [facility] [place]-[address]76 Level 3 Est. Patient 10:32:[address] Vishal Hui MD [facility] [place]-[address]426 Level 3 Est. Patient 15:12:[address] Vishal Hui MD [facility] CPT-02981 Level 4 Est. Patient 09:19:27 CDT Vishal Hui MD [facility] CPT-22182 Level 3 Est. Patient 15:53:00 CDT Renzo Thornton [facility] CPT-75233 Level 3 Est. Patient 15:50:30 CDT Renzo Thornton [facility] [place] CPT-11558 Level 3 Est. Patient 16:55:24 CDT Vishal Hui MD [facility] Procedures Code Procedure Name Date Entry Date Standard Description CPT-35924 Abx/Therapy Injection 17:34:[address] CPT-24202 Nexplanon Removal with Reinsertion 14:09:32 CDT CPT-J7307 Nexplanon (Implant) 14:09:32 CDT CPT-OV Office Visit 14:09:32 CDT CPT-83620 UA w micro - LAB USE ONLY 16:21:13 CDT CPT-49751 Wet Mount - LAB USE ONLY 16:21:13 CDT CPT-31332 First Vx - Ix admin for Medicare patients 14:37:47 CDT CPT-44978 Fluzone Preservative Free Intramuscular Suspension 14:37 :47 CDT CPT-13336 Abx/Therapy Injection 13:54:22 CDT CPT-26035 Abx/Therapy Injection 08:47:09 CDT CPT-43034 Abx/Therapy Injection 13:29:56 CDT CPT-10437 Abx/Therapy Injection 08:36:16 CDT CPT-61738 Wet Mount - LAB USE ONLY 17:44:58 CDT CPT-62522 UA w micro - LAB USE ONLY 17:44:58 CDT CPT-51805 CMP - LAB USE ONLY 17:44:58 CDT CPT-38947 Venipuncture Draw Fee 17:44:58 CDT CPT-84002 Cervical Min 4V - XRAY USE ONLY 09:01:40 CDT CPT-03502 Chest 2V Frontal and Lat - XRAY USE ONLY 11:06:31 CDT CPT-08207 EKG Trac and Interp - XRAY USE ONLY 11:31:43 CDT 08/26 CPT-J3420 Vitamin B12 1000mcg (Cyanocobalamin) 08:10:[address] 04/12 CPT-06799 Abx/Therapy Injection 08:10:[address] CPT-G0438 Initial Annual Wellness Exam 19:01:[address] CPT-J3420 Vitamin B12 1000mcg (Cyanocobalamin) 16:57:46 CDT 08/14 CPT-81316 Recombivax HB Injection Suspension 5 MCG/0.5ML 08:37:[address] CPT-55955 Immunization Single Admin 08:37:[address] CPT-J3420 Vitamin B12 1000mcg (Cyanocobalamin) 08:32:[address] 03/11 CPT-21052 Abx/Therapy Injection 08:32:[address] CPT-36751 Chest 2V Frontal and Lat 11:46:[address] CPT-76827 Venipuncture Draw Fee 09:12:[address] CPT-J3420 Vitamin B12 1000mcg (Cyanocobalamin) 08:50:[address] 02/08 CPT-68448 Abx/Therapy Injection 08:50:[address] CPT-Cryo Cryotherapy 10:19:[address] CPT-000 Give Appropriate Flu Vaccine 09:22:16 CDT CPT-J3420 Vitamin B12 1000mcg (Cyanocobalamin) 19:08:57 CDT 01/11 CPT-23152 Abx/Therapy Injection 19:08:57 CDT CPT-J3420 Vitamin B12 1000mcg (Cyanocobalamin) 08:19:08 CDT 12/11 CPT-10263 Abx/Therapy Injection 08:19:08 CDT CPT-J3420 Vitamin B12 1000mcg (Cyanocobalamin) 14:48:00 CDT 11/09 CPT-83440 Abx/Therapy Injection 14:47:59 CDT CPT-J3420 Vitamin B12 1000mcg (Cyanocobalamin) 08:34:04 CDT 10/09 CPT-24846 Abx/Therapy Injection 08:34:04 CDT CPT-J3420 Vitamin B12 1000mcg (Cyanocobalamin) 09:18:52 CDT 09/11 CPT-48040 Abx/Therapy Injection 09:18:52 CDT CPT-J3420 Vitamin B12 1000mcg (Cyanocobalamin) 08:35:44 CDT 09/04 CPT-07222 Abx/Therapy Injection 08:35:44 CDT CPT-78920 Immunization Single Admin 11:07:16 CDT CPT-62007 Hepatitis B adult IM 11:07:16 CDT CPT-J3420 Vitamin B12 1000mcg (Cyanocobalamin) 11:00:49 CDT 08/28 CPT-J1040 Depo Medrol 80 mg (Methyl Prednisolone Acetate) 11:00: 49 CDT CPT-39142 Abx/Therapy Injection 11:00:49 CDT CPT-J1040 Depo Medrol 80 mg (Methyl Prednisolone Acetate) 09:16: 23 CDT CPT-J3420 Vitamin B12 1000mcg (Cyanocobalamin) 08:27:05 CDT 08/20 CPT-15618 Abx/Therapy Injection 08:27:05 CDT CPT-36270 Recombivax HB Injection Suspension 5 MCG/0.5ML 10:00:41 CDT CPT-11991 Administration single or combination vaccine inc oral 10 :00:41 CDT CPT-41687 Sono transvag pelvis non OB uterus ovaries cervix 16:36: 57 CDT CPT-33534 LS spine comp w obliq 09:50:[address] CPT-45307 Abd compl w upright 09:50:[address] CPT-J1100 Decadron 4mg (Dexamethasone) 15:51:[address] CPT-J1030 Depo Medrol 40 mg (Methyl Prednisolone Acetate) 15:51: [address] CPT-51515 Abx/Therapy Injection 15:51:[address] CPT-J1100 Decadron 4mg (Dexamethasone) 15:26:[address] CPT-J1030 Depo Medrol 40 mg (Methyl Prednisolone Acetate) 15:26: [address] CPT-91248 Sono retroperitoneal complete kidneys and bladder 17:15: 30 CDT CPT-98234 Abd compl w upright 16:09:25 CDT CPT-J1100 Decadron 8mg (Dexamethasone) 17:07:57 CDT CPT-64925 Abx/Therapy Injection 17:07:57 CDT CPT-J1100 Decadron 8mg (Dexamethasone) 16:55:24 CDT CPT-05865 Chest 2V Frontal and Lat 16:32:44 CDT
--- OUTSIDE RECORDS SUMMARY | 2016-11-05 00:36 | XMS REPORT | Clinical Summary ---
Author Author Admin, [employer] Organization [facility] Address Unknown Phone Unavailable Allergies, [...] Shortness of breath 786.05 Active Fabiola Johnson SENIOR GIS ANALYST Shortness of breath Nocturnal hypoxia 799.02 Active Fabiola Johnson SENIOR GIS ANALYST Hypoxemia Neck pain 723.1 Active Luigi Martínez SENIOR GIS ANALYST Cervicalgia Vaginal discharge 623.5 Active Neeraj Collins [...] cessation discussed ICD-305.1 Inactive Vishal Hui MD Vaginitis, candidal ICD-112.1 [...] pain, acute ICD-786.50 Inactive Albert Caldera MD Personality change ICD-301.9 Inactive Vishal Hui MD Hot flashes ICD-627.2 Inactive Vishal Hui MD Medication List Medication Instructions Start Date Stop Date Generic Name NDC Status Provider Patient Instruction HYDROCODONE-ACETAMINOPHEN 5-325 MG TABS 1 to 2 four times a day as needed for pain use until can be seen by specialist HYDROCODONE- ACETAMINOPHEN [id number] No Longer Active Vishal Hui MD Active PROAIR HFA 108 (90 BASE) MCG/ACT AERS 2 puffs four times a day as needed 2015 ALBUTEROL SULFATE 03437480251 No Longer Active Vishal Hui MD Active PREDNISONE 20 MG TABS 2 daily for 5 days then 1 daily for 5 days PREDNISONE 76885125363 No Longer Active Vishal Hui MD Active ZITHROMAX Z-EARNEST 250 MG TABS 2 today and then 1 daily for 4 days AZITHROMYCIN 47314025430 No Longer Active Vishal Hui MD Active DICLOFENAC SODIUM 50 MG TBEC 1 tablet by mouth four times daily PRN Pain 2015 DICLOFENAC SODIUM 89987752690 Active Vishal Hui MD Active DICLOFENAC POTASSIUM TABS Take 1 tablet twice a day (pt. is not sure of the dose.) DICLOFENAC POTASSIUM TABS 76143976356 No Longer Active Vishal Hui MD Active VERAPAMIL HCL ER 120 MG ORAL CR-TABS Take 1 tablet by mouth twice a day. VERAPAMIL HCL 28526586886 Active Vishal Hui MD Active FLAGYL 500 MG TAB 1 tablet by mouth bid METRONIDAZOLE 44645386420 No Longer Active Vishal Hui MD Active ABILIFCielo MAINTENA 400 MG IM SUSR 400mg injection every 28 days ARIPIPRAZOLE 34795089864 Active Silvia Wilian Casey LPN Active FLUTICASONE PROPIONATE 50 MCG/ACT SUSP 2 sprays each nostril daily before bed. FLUTICASONE PROPIONATE 24230692909 Active Fabiola Johnson APRN Active ADZENYS XR-ODT 6.3 MG ORAL TBED 1 tab po daily for ADHD AMPHETAMINE 47253325183 Active Fabiola Johnson APRN Active BENADRYL 25 MG CAP 4 po at bedtime for insomnia DIPHENHYDRAMINE HCL 08773007332 Active Fabiola Johnson APRN Active KLONOPIN 1 MG ORAL TABS 1 tab po TID CLONAZEPAM 63268489149 Active Fabiola Johnson APRN Active VALIUM 5 MG TAB Take 1-2 tablets daily DIAZEPAM 93820828154 No Longer Active Fabiola Johnson APRN Active METOPROLOL TARTRATE 25 MG ORAL TABS 1/2 tablet twice daily for heart rate and blood pressure METOPROLOL TARTRATE 23533240074 No Longer Active Fabiola Johnson APRN Active MIRALAX ORAL POWD 17GMS DAILY IN WATER POLYETHYLENE GLYCOL 3350 40125112260 Active Vishal Hui MD Active VIIBRYD 10 MG ORAL TABS Take 1 tablet once a day VILAZODONE HCL 75735341043 Active Ahmet Carbajal MD Active MIRALAX PACK 1 po qd PRN Constipation POLYETHYLENE GLYCOL 3350 37610325654 No Longer Active Ahmet Carbajal MD Active MINIPRESS 2 MG CAPS 4 cap po at night PRAZOSIN HCL 56348537084 No Longer Active Ahmet Carbajal MD Active PIROXICAM 20 MG CAPS 1 cap po qd PRN Pain PIROXICAM 41139547100 No Longer Active Ahmet Carbajal MD Active TRAMADOL HCL 50 MG TABS 1-2 po TID PRN Pain TRAMADOL HCL 96582221028 No Longer Active Ahmet Carbajal MD Active METOPROLOL TARTRATE 50 MG TAB 1 po bid METOPROLOL TARTRATE 42641213065 No Longer Active Ahmet Carbajal MD Active ABILIFY 15 MG ORAL TABS 1 tab daily ARIPIPRAZOLE 11734207203 No Longer Active Ahmet Carbajal MD Active PROZAC 20 MG ORAL CAPS 1 tab daily FLUOXETINE HCL 24048526755 No Longer Active Ahmet Carbajal MD Active AMBIEN 5 MG ORAL TABS 1 tab at bedtime ZOLPIDEM TARTRATE 35026585989 No Longer Active Ahmet Carbajal MD Active PREDNISONE 20 MG TAB 2 tabs daily for 4 days, 1 tab daily for 4 days, 1/2 tab daily for 4 days PREDNISONE 84742173453 No Longer Active Ahmet Carbajal MD Active KEFLEX 500 MG CAP 1 po TID x 10 days CEPHALEXIN 70729080033 No Longer Active Vishal Hui MD Active IMITREX 50 MG ORAL TABS 1/2 tab every 6 hours prn SUMATRIPTAN SUCCINATE 58053384803 Active Jillina Mauricio NORIEGA Active TOPAMAX 50 MG ORAL TABS 1 tab twice daily TOPIRAMATE 25340509491 Active Vishal Hui MD Active SAPHRIS 5 MG SUBL 1 po bid ASENAPINE MALEATE 44240241899 No Longer Active Pacollina Mauricio NORIEGA Active LATUDA 80 MG TABS Take one by mouth daily LURASIDONE HCL 31901160693 No Longer Active Jillina Fralebron SENIOR GIS ANALYST Active AMLODIPINE BESYLATE 5 MG TABS 1 tablet by mouth daily AMLODIPINE BESYLATE 06274166068 No Longer Active Jillina Fralebron SENIOR GIS ANALYST Active AMITRIPTYLINE HCL 100 MG TAB one at hs AMITRIPTYLINE HCL 81178937024 No Longer Active Vishal Hui MD Active TRAZODONE HCL 100 MG TAB take 1 at bedtime TRAZODONE HCL 52309739973 No Longer Active Vishal Hui MD Active VYVANSE 40 MG CAPS 1 daily, LISDEXAMFETAMINE DIMESYLATE 08723939303 No Longer Active Vishal Hui MD Active IBUPROFEN 600 MG TAB 1 po TID PRN IBUPROFEN 87629704683 No Longer Active Vishal Hui MD Active PROZAC 20 MG CAP Take one by mouth daily FLUOXETINE HCL 39430262575 No Longer Active Vishal Hui MD Active ZOFRAN 4 MG TABS 1 po q6hr PRN Nausea ONDANSETRON HCL Active Vishal Hui MD Active BACTRIM DS 800-160 MG TABS 1 pill by mouth twice daily SULFAMETHOXAZOLE-TRIMETHOPRIM 99793326946 No Longer Active Sahara Rodriguez MD PhD Active DIFLUCAN 150 MG TAB 1 tablet by mouth daily FLUCONAZOLE 52809398667 No Longer Active Visahl Hui MD Active TIZANIDINE HCL 4 MG TABS 1 po q6hr PRN Muscle Spasm/Back Pain TIZANIDINE HCL 09987686935 Active Vishal Hui MD Active CLINDAMYCIN HCL 150 MG CAPS 1 four times a day CLINDAMYCIN HCL 90350247929 No Longer Active Neeraj Collins MD Active KEFLEX 500 MG ORAL CAPS 1 cap QID by mouth CEPHALEXIN 35212833969 No Longer Active Neeraj Collins MD Active DIFLUCAN 150 MG TABS 1 pill every other day x 2 doses FLUCONAZOLE 50170318073 No Longer Active Sahara Rodriguez MD PhD Active MELATONIN 3 MG CAPS 2 po q hs MELATONIN 10333030309 No Longer Active Sahara Rodriguez MD PhD Active MULTIVITAMINS CAPS Take one by mouth daily MULTIPLE VITAMIN 55664500466 No Longer Active Sahara Rodriguez MD PhD Active BACTRIM DS 800-160 MG TAB 1 tab by mouth twice daily TRIMETHOPRIM-SULFAMETHOXAZOLE 85353609027 No Longer Active Sahara Rodriguez MD PhD Active [facility] PROBIOTIC ORAL CHEW 2 daily po PROBIOTIC PRODUCT 18132908373 No Longer Active Sahara Rodriguez MD PhD Active BACTRIM DS 800-160 MG TABS 1 po BID x 7 days SULFAMETHOXAZOLE-TRIMETHOPRIM 27487072970 No Longer Active Vishal Hui MD Active CHANTIX STARTING MONTH EARNEST 0.5 MG X 11 & 1 MG X 42 TABS 0.5mg daily for 3 days , then 0.5mg BID for 4 days, then 1mg BID VARENICLINE TARTRATE 23336977009 No Longer Active TAMARA Gray Active VERAPAMIL HCL CR 120 MG TAB CR 1 po bid VERAPAMIL HCL 61122671677 No Longer Active Vishal Hui MD Active METOPROLOL SUCCINATE 50 MG TB24 1 tablet by mouth daily METOPROLOL SUCCINATE 67186970685 No Longer Active Vishal Hui MD Active SAPHRIS 10 MG SUBL 1 tab po bid ASENAPINE MALEATE 20360756939 No Longer Active Vishal Hui MD Active LISINOPRIL 20 MG TABS 1 tab po qd LISINOPRIL 79597154527 No Longer Active Vishal Hui MD Active LATUDA 20 MG TABS Take one by mouth daily LURASIDONE HCL 40981695275 No Longer Active Vishal Hui MD Active TRAZODONE HCL 50 MG TABS 1/2 tab po qd prn for anxiety TRAZODONE HCL 11346660114 No Longer Active Vishal Hui MD Active OMEPRAZOLE 20 MG TBEC 1 po q a.m. 30min prior to first food intake OMEPRAZOLE 71189235061 Active Vishal Hui MD Active RANITIDINE HCL 150 MG CAPS 1 twice a day RANITIDINE HCL 24648429983 Active Luigi Martínez SENIOR GIS ANALYST Active LINZESS 290 MCG CAPS Take one by mouth daily LINACLOTIDE 68046442162 No Longer Active Vishal Hui MD Active SAPHRIS 5 MG SUBL 1 tab po qd ASENAPINE MALEATE 41283674862 No Longer Active Vishal Hui MD Active ZALEPLON 10 MG CAPS 1 cap po every other night ZALEPLON 99949045128 No Longer Active Vishal Hui MD Active LYRICA 50 MG CAPS 1 tab po TID PREGABALIN 45995834929 No Longer Active Vishal Hui MD Active LORATADINE 10 MG TABS 1 tab po qd LORATADINE 89420506735 No Longer Active Vishal Hui MD Active VERAPAMIL HCL ER 180 MG CR-TABS 1 tab po bid VERAPAMIL HCL 56664020994 No Longer Active Vishal Hui MD Active MIRALAX POWD 1 capfull once daily POLYETHYLENE GLYCOL 3350 18599404029 No Longer Active Vishal Hui MD Active PREDNISONE 20 MG TABS 1 tab po qd PREDNISONE 72599392522 No Longer Active Renzo Thornton DO Active LEVOFLOXACIN 500 MG TABS 1 tab po qd LEVOFLOXACIN 50172218404 No Longer Active Renzo Thornton DO Active BUSPIRONE HCL 15 MG TABS 1 tab po TID BUSPIRONE HCL 20442454239 No Longer Active Renzo Thornton DO Active BENZTROPINE MESYLATE 1 MG TABS 1 tab po qd BENZTROPINE MESYLATE 62443817604 No Longer Active Renzo Thornton DO Active ATENOLOL 25 MG TABS 1 tab po qd ATENOLOL 31338061906 No Longer Active Renzo Thornton DO Active ESCITALOPRAM OXALATE 20 MG TABS 1 tab po qd ESCITALOPRAM OXALATE 39769721502 No Longer Active Renzo Thornton DO Active ADVAIR DISKUS 250-50 MCG/DOSE AEPB 1 puff BID FLUTICASONE-SALMETEROL 52008894575 No Longer Active Renzo Thornton DO Active PREDNISONE 20 MG TAB 2 tabs daily for 3 days, 1 tab daily for 3 days, 1/2 tab daily for 2 days PREDNISONE 63251882950 No Longer Active Vishal Hui MD Active CEFDINIR 300 MG CAPS by mouth twice a day CEFDINIR 52285385299 No Longer Active Vishal Hui MD Active LANSOPRAZOLE 30 MG CPDR 1 cap po qd LANSOPRAZOLE 33303319047 No Longer Active Vishal Hui MD Active BACLOFEN 20 MG TABS 1 tab po tid BACLOFEN 20336767383 No Longer Active Vishal Hui MD Active ADVAIR DISKUS 250-50 MCG/DOSE AEPB 1 puff BID ADVAIR DISKUS 250-50 MCG/DOSE AEPB FLUTICASONE-SALMETEROL Inactive ESCITALOPRAM OXALATE 20 MG TABS 1 tab po qd ESCITALOPRAM OXALATE 20 MG TABS 371626 ESCITALOPRAM OXALATE Inactive ATENOLOL 25 MG TABS 1 tab po qd ATENOLOL 25 MG TABS 280423 ATENOLOL Inactive BENZTROPINE MESYLATE 1 MG TABS 1 tab po qd BENZTROPINE MESYLATE 1 MG TABS 428493 BENZTROPINE MESYLATE Inactive BUSPIRONE HCL 15 MG TABS 1 tab po TID BUSPIRONE HCL 15 MG TABS 029605 BUSPIRONE HCL Inactive LEVOFLOXACIN 500 MG TABS 1 tab po qd LEVOFLOXACIN 500 MG TABS 066179 LEVOFLOXACIN Inactive PREDNISONE 20 MG TABS 1 tab po qd PREDNISONE 20 MG TABS 041064 PREDNISONE Inactive MIRALAX POWD 1 capfull once daily MIRALAX POWD 290129 POLYETHYLENE GLYCOL 3350 Inactive VERAPAMIL HCL ER 180 MG CR-TABS 1 tab po bid VERAPAMIL HCL ER 180 MG CR-TABS VERAPAMIL HCL Inactive LORATADINE 10 MG TABS 1 tab po qd LORATADINE 10 MG TABS 532413 LORATADINE Inactive LYRICA 50 MG CAPS 1 tab po TID LYRICA 50 MG CAPS PREGABALIN Inactive ZALEPLON 10 MG CAPS 1 cap po every other night ZALEPLON 10 MG CAPS 323281 ZALEPLON Inactive SAPHRIS 5 MG SUBL 1 tab po qd SAPHRIS 5 MG SUBL ASENAPINE MALEATE Inactive TRAZODONE HCL 50 MG TABS 1/2 tab po qd prn for anxiety TRAZODONE HCL 50 MG TABS 893959 TRAZODONE HCL Inactive LATUDA 20 MG TABS Take one by mouth daily LATUDA 20 MG TABS LURASIDONE HCL Inactive LISINOPRIL 20 MG TABS 1 tab po qd LISINOPRIL 20 MG TABS 918075 LISINOPRIL Inactive SAPHRIS 10 MG SUBL 1 [...] twice daily BACTRIM DS 800-160 MG TAB 008561 TRIMETHOPRIM-SULFAMETHOXAZOLE Inactive MULTIVITAMINS CAPS Take one by mouth daily MULTIVITAMINS CAPS MULTIPLE VITAMIN Inactive MELATONIN 3 MG CAPS 2 po q hs MELATONIN 3 MG CAPS 369805 MELATONIN Inactive KEFLEX 500 MG ORAL CAPS 1 cap QID by mouth KEFLEX 500 MG ORAL CAPS 501372 CEPHALEXIN Inactive CLINDAMYCIN HCL 150 MG CAPS 1 four times a day CLINDAMYCIN HCL 150 MG CAPS 936530 CLINDAMYCIN HCL Inactive DIFLUCAN 150 MG TAB 1 tablet by mouth daily DIFLUCAN 150 MG TAB 476887 FLUCONAZOLE Inactive PROZAC 20 MG CAP Take one by mouth daily PROZAC 20 MG CAP 989697 FLUOXETINE HCL Inactive IBUPROFEN 600 MG TAB 1 po TID PRN IBUPROFEN 600 MG TAB 523747 IBUPROFEN Inactive VYVANSE 40 MG CAPS 1 daily, VYVANSE 40 MG CAPS LISDEXAMFETAMINE DIMESYLATE Inactive TRAZODONE HCL 100 MG TAB take 1 at bedtime TRAZODONE HCL 100 MG TAB 814152 TRAZODONE HCL Inactive AMITRIPTYLINE HCL 100 MG TAB one at hs AMITRIPTYLINE HCL 100 MG TAB 348837 AMITRIPTYLINE HCL Inactive AMLODIPINE BESYLATE 5 MG TABS 1 tablet by mouth daily AMLODIPINE BESYLATE 5 MG TABS 298969 AMLODIPINE BESYLATE Inactive LATUDA 80 MG TABS Take one by mouth daily LATUDA 80 MG TABS LURASIDONE HCL Inactive SAPHRIS 5 MG SUBL 1 po bid SAPHRIS 5 MG SUBL ASENAPINE MALEATE Inactive PREDNISONE 20 MG TAB 2 tabs daily for 4 days, 1 tab daily for 4 days, 1/2 tab daily for 4 days PREDNISONE 20 MG TAB 772504 PREDNISONE Inactive AMBIEN 5 MG ORAL TABS 1 tab at bedtime AMBIEN 5 MG ORAL TABS 632791 ZOLPIDEM TARTRATE Inactive PROZAC 20 MG ORAL CAPS 1 tab daily PROZAC 20 MG ORAL CAPS 720641 FLUOXETINE HCL Inactive ABILIFY 15 MG ORAL TABS 1 tab daily ABILIFY 15 MG ORAL TABS 297043 ARIPIPRAZOLE Inactive METOPROLOL TARTRATE 50 MG TAB 1 po bid METOPROLOL TARTRATE 50 MG TAB 546095 METOPROLOL TARTRATE Inactive TRAMADOL HCL 50 MG TABS 1-2 po TID PRN Pain TRAMADOL HCL 50 MG TABS 669519 TRAMADOL HCL Inactive PIROXICAM 20 MG CAPS 1 cap po qd PRN Pain PIROXICAM 20 MG CAPS 432523 PIROXICAM Inactive MINIPRESS 2 MG CAPS 4 cap po at night MINIPRESS 2 MG CAPS 847598 PRAZOSIN HCL Inactive MIRALAX PACK 1 po qd PRN Constipation MIRALAX PACK 891731 POLYETHYLENE GLYCOL 3350 Inactive METOPROLOL TARTRATE 25 MG ORAL TABS 1/2 tablet twice daily for heart rate and blood pressure METOPROLOL TARTRATE 25 MG ORAL TABS 314341 METOPROLOL TARTRATE Inactive VALIUM 5 MG TAB Take 1-2 tablets daily VALIUM 5 MG TAB 563124 DIAZEPAM Inactive FLAGYL 500 MG TAB 1 tablet by mouth bid FLAGYL 500 MG TAB 833875 METRONIDAZOLE Inactive DICLOFENAC POTASSIUM TABS Take 1 tablet twice a day (pt. is not sure of the dose.) DICLOFENAC POTASSIUM TABS DICLOFENAC POTASSIUM TABS Inactive ZITHROMAX Z-EARNEST 250 MG TABS 2 today and then 1 daily for 4 days ZITHROMAX Z-EARNEST 250 MG TABS 5345463 AZITHROMYCIN Inactive PREDNISONE 20 MG TABS 2 daily for 5 days then 1 daily for 5 days PREDNISONE 20 MG TABS 246518 PREDNISONE Inactive PROAIR HFA 108 (90 BASE) MCG/ACT AERS 2 puffs four times a day as needed 2015 PROAIR HFA 108 (90 BASE) MCG/ACT AERS ALBUTEROL SULFATE Inactive HYDROCODONE-ACETAMINOPHEN 5-325 MG TABS 1 to 2 four times a day as needed for pain use until can be seen by specialist HYDROCODONE- ACETAMINOPHEN 5-325 MG TABS 325178 HYDROCODONE-ACETAMINOPHEN Inactive CEFDINIR 300 MG CAPS by mouth twice a day CEFDINIR 300 MG CAPS 079462 CEFDINIR Inactive PREDNISONE 20 MG TAB 2 tabs daily for 3 days, 1 tab daily for 3 days, 1/2 tab daily for 2 days PREDNISONE 20 MG TAB 673237 PREDNISONE Inactive BACTRIM DS 800-160 MG TABS 1 po BID x 7 days BACTRIM DS 800-160 MG TABS 493808 SULFAMETHOXAZOLE-TRIMETHOPRIM Inactive DIFLUCAN 150 MG TABS 1 pill every other day x 2 doses DIFLUCAN 150 MG TABS 477401 FLUCONAZOLE Inactive BACTRIM DS 800-160 MG TABS 1 pill by mouth twice daily BACTRIM DS 800-160 MG TABS 966591 SULFAMETHOXAZOLE-TRIMETHOPRIM Inactive KEFLEX 500 MG CAP 1 po TID x 10 days KEFLEX 500 MG CAP 801262 CEPHALEXIN Inactive Advance Directives Directive Description Start [...] % 11.6-14.8 platelet count 394 10^3/MM^3 10*3/mm3 462-385 2335/12/22 erythrocyte (RBC) count 4.19 10^6/MM^3 10*6/mm3 4.04-5.48 hemoglobin, blood 13.1 g/dL 12.0-16.0 hematocrit, blood 39.0 % 36.0-46.0 mean corpuscular volume, RBC 93 fL 80-97 mean corpuscular hemoglobin, RBC 31.4 pg 27.0-31.2 mean corpuscular hemoglobin concentration, RBC 33.6 G/DL % 31.8- 35.4 red blood cell distribution width 14.4 % 11.6-14.8 platelet count 390 10^3/MM^3 10*3/mm3 654-625 4366/01/11 erythrocyte (RBC) count 4.46 10^6/MM^3 10*6/mm3 4.04-5.48 [...] Panel - Chemistry sodium, serum 139 mmol/L 895-975 0131/12/03 carbon dioxide, venous blood 28.5 mmol/L 21.0-32.0 [...] 5.5 % 4.3-6.0 cholesterol, serum 159 mg/dL 285-752 6821/12/03 triglyceride, serum, fasting 118 mg/dL 30-200 HDL [...] percent of blood leukocytes 26.7 % 20.5-51.1 hematocrit, blood 40.8 % 36.0-46.0 mean corpuscular hemoglobin concentration, RBC 34.0 G/DL % 31.8- 35.4 red blood cell distribution width 12.8 % 11.6-14.8 platelet count 362 10^3/MM^3 10*3/mm3 764-305 3710/12/03 mean corpuscular volume, RBC 93 fL 80-97 mean corpuscular hemoglobin, RBC 31.6 pg 27.0-31.2 Lab Report: Comp. Metabolic Panel - Chemistry sodium, serum 139 mmol/L 465-178 9667/01/11 creatinine, serum 1.00 mg/dL 0.55-1.30 alanine aminotransferase (SGPT), serum 48 U/L - aspartate aminotransferase (SGOT), serum 17 U/L 15-37 calcium, serum 9.1 mg/dL 8.5-10.1 bilirubin, serum, total 0.40 mg/dL 0.00-1.00 carbon dioxide, venous blood 26.6 mmol/L 21.0-32.0 potassium, serum 4.1 mmol/L 3.5-5.2 chloride, serum 100 mmol/L 98-107 blood glucose 86 mg/dL 65-110 urea nitrogen, blood 16 mg/dL 7-18 sodium, serum 142 mmol/L 850-408 5826/06/08 creatinine, serum 0.75 mg/dL 0.55-1.30 alanine aminotransferase (SGPT), serum 49 U/L aspartate aminotransferase (SGOT), serum 28 U/L 15-37 calcium, serum 9.4 mg/dL 8.5-10.1 bilirubin, serum, total 0.30 mg/dL 0.00-1.00 sodium, serum 140 mmol/L 748-640 7409/08/08 carbon dioxide, venous blood 33.7 mmol/L 21.0-32.0 potassium, serum 5.0 mmol/L 3.5-5.2 chloride, serum 103 mmol/L 98-107 blood glucose 80 mg/dL 65-110 urea nitrogen, blood 13 mg/dL 7-18 creatinine, serum 0.88 mg/dL 0.55-1.30 alanine aminotransferase (SGPT), serum 54 U/L - aspartate aminotransferase (SGOT), serum 29 U/L 15-37 calcium, serum 9.7 mg/dL 8.5-10.1 bilirubin, serum, total 0.30 mg/dL 0.00-1.00 sodium, serum 139 mmol/L 218-062 3284/12/22 creatinine, serum 0.90 mg/dL 0.55-1.30 alanine aminotransferase [...] Metabolic Panel, Erythrocyte Sed Rate - Chemistry creatinine, serum 0.96 mg/dL 0.55-1.30 alanine aminotransferase (SGPT), serum 34 U/L aspartate aminotransferase (SGOT), serum 12 U/L 15-37 calcium, serum 8.6 mg/dL 8.5-10.1 bilirubin, serum, total 0.20 mg/dL 0.00-1.00 sodium, serum 139 mmol/L 133-774 0285/12/11 carbon dioxide, venous blood 25.4 mmol/L 21.0-32.0 potassium, serum 3.9 mmol/L 3.5-5.2 chloride, serum 105 mmol/L 98-107 blood glucose 98 mg/dL 65-110 urea nitrogen, blood 18 mg/dL 7-18 Lab Report: LH/Adult/615, FSH/Adult/470 - Chemistry luteinizing [...] ketones, urine, by test strip Negative Negative specific gravity, urine >=1.030 1.000-1.030 pH, urine, semiquantitative 5.5 5.0-8.5 bilirubin, urine Negative Negative urobilinogen, urine, semiquantitative [...] urine SlCloudy Clear urine color Yellow Colorless;Lightyellow;Straw;Yellow ketones, urine, by test strip Negative Negative bilirubin, urine Negative Negative urine color Yellow Colorless;Lightyellow;Straw;Yellow ketones, urine, by test strip Negative Negative urobilinogen, urine, semiquantitative (dipstick) 0.2 Normal leukocyte esterase, urine, by dipstick Negative Negative bilirubin, urine Negative Negative nitrite, urine, semiquantitative Negative Negative appearance, urine Clear Clear specific gravity, urine 1.025 1.000-1.030 pH, urine, semiquantitative 5.5 5.0-8.5 Office Visit: Consult for Painful Lipoma - Chemistry cholesterol, target level 200 mg/dL triglyceride, target level 200 mg/dL HDL cholesterol, serum, target level 35 mg/dL LDL target level 100 mg/dL Encounters Code Encounter Date Provider Facility CPT-00380 Level 3 Est. Patient 11:36:17 CDT Ahmet Carbajal MD [facility] CPT-29330 Level 3 Est. Patient 13:29:16 CDT Vishal Hui MD [facility] CPT-47670 Level 3 Est. Patient 14:27:52 CDT Neeraj Collins MD [facility] CPT-27719 Level 3 Est. Patient 08:56:03 CDT Luigi Martínez [facility] CPT-77418 Level 4 Est. Patient 12:11:48 CDT Fabiola Johnson [facility] CPT-39647 Level 3 New Patient 16:53:37 CDT Albert Caldera MD [facility] CPT-63013 Level 3 Est. Patient 11:25:49 CDT Renzo Thornton DO [facility] CPT-30134 Level 3 Est. Patient 15:22:01 CDT Ahmet Carbajal MD [facility] CPT-26936 Level 4 Est. Patient 09:00:51 PRINCIPAL SCIENTIST Vishal Hui MD [facility] CPT-31815 Level 3 Est. Patient 11:37:33 PRINCIPAL SCIENTIST Vishal Hui MD [facility] CPT-42996 Level 3 Est. Patient 08:41:09 PRINCIPAL SCIENTIST Vishal Hui MD [facility] CPT-76967 Level 4 Est. Patient 10:19:35 PRINCIPAL SCIENTIST Vishal Hui MD [facility] CPT-21711 Level 3 Est. Patient 13:35:45 CDT Vishal Hui MD [facility] CPT-81499 Level 4 Est. Patient 10:08:37 CDT Vishal Hui MD [facility] CPT-81906 Level 3 Est. Patient 11:22:10 CDT Vishal Hui MD [facility] CPT-44860 Level 3 Est. Patient 11:03:32 CDT Sahara Rodriguez MD [facility] CPT-62794 Level 3 Est. Patient 09:41:35 CDT Vishal Hui MD [facility] CPT-76883 Level 3 Est. Patient 12:00:41 CDT Neeraj Collins MD [facility] CPT-04701 Level 3 Est. Patient 09:16:24 CDT Vishal Hui MD [facility] CPT-93831 Level 4 Est. Patient 13:59:09 CDT Neeraj Collins MD [facility] CPT-86598 Level 3 Est. Patient 15:19:43 CDT Renzo Thornton [facility] CPT-88994 Level 3 Est. Patient 18:10:26 CDT Sahara Rodriguez MD [facility]-60634 Level 3 Est. Patient 14:49:50 CDT Vishal Hui MD [facility] CPT-96166 Level 4 Est. Patient 18:41:46 CDT Neeraj Collins MD [facility] CPT-73372 Level 4 Est. Patient 09:18:38 PRINCIPAL SCIENTIST Vishal Hui MD [facility] CPT-10141 Level 3 Est. Patient 14:43:55 PRINCIPAL SCIENTIST Vishal Hui MD [facility] CPT-53049 Level 3 Est. Patient 15:26:33 PRINCIPAL SCIENTIST Sahara Rodriguez MD [facility] CPT-39068 Level 3 Est. Patient 10:32:14 PRINCIPAL SCIENTIST Vishal Hui MD [facility] CPT-01181 Level 3 Est. Patient 15:12:52 PRINCIPAL SCIENTIST Vishal Hui MD [facility] CPT-19521 Level 4 Est. Patient 09:19:27 CDT Vishal Hui MD [facility] CPT-96076 Level 3 Est. Patient 15:53:00 CDT Renzo Thornton [facility] CPT-33600 Level 3 Est. Patient 15:50:30 CDT Renzo Thornton [facility] CPT-48695 Level 3 Est. Patient 16:55:24 CDT Vishal Hui MD [facility] Procedures Code Procedure Name Date Entry Date Standard Description CPT-34676 Abx/Therapy Injection 08:47:09 CDT CPT-10738 Abx/Therapy Injection 13:29:56 CDT CPT-68170 Abx/Therapy Injection 08:36:16 CDT CPT-50656 Wet Mount - LAB USE ONLY 17:44:58 CDT CPT-15272 UA w micro - LAB USE ONLY 17:44:58 CDT CPT-51544 CMP - LAB USE ONLY 17:44:58 CDT CPT-62939 Venipuncture Draw Fee 17:44:58 CDT CPT-36966 Cervical Min 4V - XRAY USE ONLY 09:01:40 CDT CPT-06966 Chest 2V Frontal and Lat - XRAY USE ONLY 11:06:31 CDT CPT-26606 EKG Trac and Interp - XRAY USE ONLY 11:31:43 CDT 08/26 CPT-J3420 Vitamin B12 1000mcg (Cyanocobalamin) 08:10:26 PRINCIPAL SCIENTIST 04/12 CPT-89489 Abx/Therapy Injection 08:10:26 PRINCIPAL SCIENTIST CPT-G0438 Initial Annual Wellness Exam 19:01:01 PRINCIPAL SCIENTIST CPT-J3420 Vitamin B12 1000mcg (Cyanocobalamin) 16:57:46 CDT 08/14 CPT-99101 Recombivax HB Injection Suspension 5 MCG/0.5ML 08:37:50 PRINCIPAL SCIENTIST CPT-86390 Immunization Single Admin 08:37:50 PRINCIPAL SCIENTIST CPT-J3420 Vitamin B12 1000mcg (Cyanocobalamin) 08:32:16 PRINCIPAL SCIENTIST 03/11 CPT-95726 Abx/Therapy Injection 08:32:16 PRINCIPAL SCIENTIST CPT-70443 Chest 2V Frontal and Lat 11:46:38 PRINCIPAL SCIENTIST CPT-61470 Venipuncture Draw Fee 09:12:45 PRINCIPAL SCIENTIST CPT-J3420 Vitamin B12 1000mcg (Cyanocobalamin) 08:50:15 PRINCIPAL SCIENTIST 02/08 CPT-90173 Abx/Therapy Injection 08:50:15 PRINCIPAL SCIENTIST CPT-Cryo Cryotherapy 10:19:35 PRINCIPAL SCIENTIST CPT-000 Give Appropriate Flu Vaccine 09:22:16 CDT CPT-J3420 Vitamin B12 1000mcg (Cyanocobalamin) 19:08:57 CDT 01/11 CPT-34379 Abx/Therapy Injection 19:08:57 CDT CPT-J3420 Vitamin B12 1000mcg (Cyanocobalamin) 08:19:08 CDT 12/11 CPT-05549 Abx/Therapy Injection 08:19:08 CDT CPT-J3420 Vitamin B12 1000mcg (Cyanocobalamin) 14:48:00 CDT 11/09 CPT-80726 Abx/Therapy Injection 14:47:59 CDT CPT-J3420 Vitamin B12 1000mcg (Cyanocobalamin) 08:34:04 CDT 10/09 CPT-20553 Abx/Therapy Injection 08:34:04 CDT CPT-J3420 Vitamin B12 1000mcg (Cyanocobalamin) 09:18:52 CDT 09/11 CPT-93596 Abx/Therapy Injection 09:18:52 CDT CPT-J3420 Vitamin B12 1000mcg (Cyanocobalamin) 08:35:44 CDT 09/04 CPT-23119 Abx/Therapy Injection 08:35:44 CDT CPT-00965 Immunization Single Admin 11:07:16 CDT CPT-24854 Hepatitis B adult IM 11:07:16 CDT CPT-J3420 Vitamin B12 1000mcg (Cyanocobalamin) 11:00:49 CDT 08/28 CPT-J1040 Depo Medrol 80 mg (Methyl Prednisolone Acetate) 11:00: 49 CDT CPT-22491 Abx/Therapy Injection 11:00:49 CDT CPT-J1040 Depo Medrol 80 mg (Methyl Prednisolone Acetate) 09:16: 23 CDT CPT-J3420 Vitamin B12 1000mcg (Cyanocobalamin) 08:27:05 CDT 08/20 CPT-14439 Abx/Therapy Injection 08:27:05 CDT CPT-15182 Recombivax HB Injection Suspension 5 MCG/0.5ML 10:00:41 CDT CPT-45411 Administration single or combination vaccine inc oral 10 :00:41 CDT CPT-83241 Sono transvag pelvis non OB uterus ovaries cervix 16:36: 57 CDT CPT-84658 LS spine comp w obliq 09:50:55 PRINCIPAL SCIENTIST CPT-92262 Abd compl w upright 09:50:55 PRINCIPAL SCIENTIST CPT-J1100 Decadron 4mg (Dexamethasone) 15:51:24 PRINCIPAL SCIENTIST CPT-J1030 Depo Medrol 40 mg (Methyl Prednisolone Acetate) 15:51: 24 PRINCIPAL SCIENTIST CPT-78402 Abx/Therapy Injection 15:51:24 PRINCIPAL SCIENTIST CPT-J1100 Decadron 4mg (Dexamethasone) 15:26:33 PRINCIPAL SCIENTIST CPT-J1030 Depo Medrol 40 mg (Methyl Prednisolone Acetate) 15:26: 33 PRINCIPAL SCIENTIST CPT-77898 Sono retroperitoneal complete kidneys and bladder 17:15: 30 CDT CPT-70050 Abd compl w upright 16:09:25 CDT CPT-J1100 Decadron 8mg (Dexamethasone) 17:07:57 CDT CPT-69400 Abx/Therapy Injection 17:07:57 CDT CPT-J1100 Decadron 8mg (Dexamethasone) 16:55:24 CDT CPT-87813 Chest 2V Frontal and Lat 16:32:44 CDT
--- OUTSIDE RECORDS SUMMARY | 2016-11-05 00:39 | XMS REPORT | Clinical Summary ---
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 FLUTICASONE PROPIONATE 79668947025 Active Fabiola Johnson APRN Active VERAPAMIL HCL ER 120 MG ORAL CR-TABS 1 tab po daily for blood pressure 09/27 VERAPAMIL HCL 18399281709 Active Fabiola Johnson APRN Active ADZENYS XR-ODT 6.3 MG ORAL TBED 1 tab po daily for ADHD AMPHETAMINE 44624020964 Active Fabiola Johnson APRN Active BENADRYL 25 MG CAP 4 po at bedtime for insomnia DIPHENHYDRAMINE HCL 21113121978 Active Fabiola Johnson APRN Active KLONOPIN 1 MG ORAL TABS 1 tab po TID CLONAZEPAM 24481201019 Active Fabiola Johnson APRN Active VALIUM 5 MG TAB Take 1-2 tablets daily DIAZEPAM 76563767754 No Longer Active Fabiola Johnson APRN Active METOPROLOL TARTRATE 25 MG ORAL TABS 1/2 tablet twice daily for heart rate and blood pressure METOPROLOL TARTRATE 49690038335 No Longer Active Fabiola Johnson APRN Active MIRALAX ORAL POWD 17GMS DAILY IN WATER POLYETHYLENE GLYCOL 3350 08888338938 Active Vishal Hui MD Active VIIBRYD 10 MG ORAL TABS Take 1 tablet once a day VILAZODONE HCL 10163757505 Active Ahmet Carbajal MD Active DICLOFENAC POTASSIUM TABS Take 1 tablet twice a day (pt. is not sure of the dose.) DICLOFENAC POTASSIUM TABS 17220065885 Active Ahmet Carbajal MD Active MIRALAX PACK 1 po qd PRN Constipation POLYETHYLENE GLYCOL 3350 27347394219 No Longer Active Ahmet Carbajal MD Active MINIPRESS 2 MG CAPS 4 cap po at night PRAZOSIN HCL 89606691707 No Longer Active Ahmet Carbajal MD Active PIROXICAM 20 MG CAPS 1 cap po qd PRN Pain PIROXICAM 68687601715 No Longer Active Ahmet Carbajal MD Active TRAMADOL HCL 50 MG TABS 1-2 po TID PRN Pain TRAMADOL HCL 20604094618 No Longer Active Ahmet Carbajal MD Active METOPROLOL TARTRATE 50 MG TAB 1 po bid METOPROLOL TARTRATE 92806309360 No Longer Active Ahmet Carbajal MD Active ABILIFY 15 MG ORAL TABS 1 tab daily ARIPIPRAZOLE 74198145321 No Longer Active Ahmet Carbajal MD Active PROZAC 20 MG ORAL CAPS 1 tab daily FLUOXETINE HCL 32735647639 No Longer Active Ahmet Carbajal MD Active AMBIEN 5 MG ORAL TABS 1 tab at bedtime ZOLPIDEM TARTRATE 63527386465 No Longer Active Ahmet Carbajal MD Active PREDNISONE 20 MG TAB 2 tabs daily for 4 days, 1 tab daily for 4 days, 1/2 tab daily for 4 days PREDNISONE 34307609965 No Longer Active Ahmet Carbajal MD Active KEFLEX 500 MG CAP 1 po TID x 10 days CEPHALEXIN 63331736541 No Longer Active Vishal Hui MD Active ABILIFY MAINTENA 400 MG IM SUSR Injection once per month ARIPIPRAZOLE 76721687076 Active Juliet Kimbrough APRN Active IMITREX 50 MG ORAL TABS 1/2 tab every 6 hours prn SUMATRIPTAN SUCCINATE 74998721090 Active Luigi Martínez APRN Active TOPAMAX 50 MG ORAL TABS 1 tab twice daily TOPIRAMATE 76742946211 Active Vishal Hui MD Active SAPHRIS 5 MG SUBL 1 po bid ASENAPINE MALEATE 19018596570 No Longer Active Luigi Martínez APRN Active LATUDA 80 MG TABS Take one by mouth daily LURASIDONE HCL 32916308268 No Longer Active Luigi Martínez APRN Active AMLODIPINE BESYLATE 5 MG TABS 1 tablet by mouth daily AMLODIPINE BESYLATE 11915161863 No Longer Active Luigi Martínez APRN Active AMITRIPTYLINE HCL 100 MG TAB one at hs AMITRIPTYLINE HCL 70331106763 No Longer Active Vishal Hui MD Active TRAZODONE HCL 100 MG TAB take 1 at bedtime TRAZODONE HCL 00788112244 No Longer Active Vishal Hui MD Active VYVANSE 40 MG CAPS 1 daily, LISDEXAMFETAMINE DIMESYLATE 07001582210 No Longer Active Vishal Hui MD Active IBUPROFEN 600 MG TAB 1 po TID PRN IBUPROFEN 24168670013 No Longer Active Vishal Hui MD Active PROZAC 20 MG CAP Take one by mouth daily FLUOXETINE HCL 79122833849 No Longer Active Vishal Hui MD Active ZOFRAN 4 MG TABS 1 po q6hr PRN Nausea ONDANSETRON HCL Active Vishal Hui MD Active BACTRIM DS 800-160 MG TABS 1 pill by mouth twice daily SULFAMETHOXAZOLE-TRIMETHOPRIM 04324410112 No Longer Active Sahara Rodriguez MD PhD Active DIFLUCAN 150 MG TAB 1 tablet by mouth daily FLUCONAZOLE 55996569066 No Longer Active Vishal Hui MD Active TIZANIDINE HCL 4 MG TABS 1 po q6hr PRN Muscle Spasm/Back Pain TIZANIDINE HCL 53768961703 Active Luigi Martínez APRN Active CLINDAMYCIN HCL 150 MG CAPS 1 four times a day CLINDAMYCIN HCL 73139516727 No Longer Active Neeraj Collins MD Active KEFLEX 500 MG ORAL CAPS 1 cap QID by mouth CEPHALEXIN 08913024166 No Longer Active Neeraj Collins MD Active DIFLUCAN 150 MG TABS 1 pill every other day x 2 doses FLUCONAZOLE 07453121824 No Longer Active Sahara Rodriguez MD PhD Active MELATONIN 3 MG CAPS 2 po q hs MELATONIN 85878152341 No Longer Active Sahara Rodriguez MD PhD Active MULTIVITAMINS CAPS Take one by mouth daily MULTIPLE VITAMIN 19647776368 No Longer Active Sahara Rodriguez MD PhD Active BACTRIM DS 800-160 MG TAB 1 tab by mouth twice daily TRIMETHOPRIM-SULFAMETHOXAZOLE 62357402594 No Longer Active Sahara Rodriguez MD PhD Active [facility] PROBIOTIC ORAL CHEW 2 daily po PROBIOTIC PRODUCT 97105223986 No Longer Active Sahara Rodriguez MD PhD Active BACTRIM DS 800-160 MG TABS 1 po BID x 7 days SULFAMETHOXAZOLE-TRIMETHOPRIM 53868096179 No Longer Active Vishal Hui MD Active CHANTIX STARTING MONTH EARNEST 0.5 MG X 11 & 1 MG X 42 TABS 0.5mg daily for 3 days , then 0.5mg BID for 4 days, then 1mg BID VARENICLINE TARTRATE 58617176825 No Longer Active TAMARA Gray Active VERAPAMIL HCL CR 120 MG TAB CR 1 po bid VERAPAMIL HCL 02879376491 No Longer Active Vishal Hui MD Active METOPROLOL SUCCINATE 50 MG TB24 1 tablet by mouth daily METOPROLOL SUCCINATE 91728161335 No Longer Active Vishal Hui MD Active SAPHRIS 10 MG SUBL 1 tab po bid ASENAPINE MALEATE 79788104303 No Longer Active Vishal Hui MD Active LISINOPRIL 20 MG TABS 1 tab po qd LISINOPRIL 05381909969 No Longer Active Vishal Hui MD Active LATUDA 20 MG TABS Take one by mouth daily LURASIDONE HCL 62702289287 No Longer Active Vishal Hui MD Active TRAZODONE HCL 50 MG TABS 1/2 tab po qd prn for anxiety TRAZODONE HCL 84766986120 No Longer Active Vishal Hui MD Active OMEPRAZOLE 20 MG TBEC 1 po q a.m. 30min prior to first food intake OMEPRAZOLE 09083029063 Active Vishal Hui MD Active RANITIDINE HCL 150 MG CAPS 1 twice a day RANITIDINE HCL 18180250188 Active Luigi Martínez APRN Active LINZESS 290 MCG CAPS Take one by mouth daily LINACLOTIDE 47451861314 No Longer Active Vishal Hui MD Active SAPHRIS 5 MG SUBL 1 tab po qd ASENAPINE MALEATE 55430796256 No Longer Active Vishal Hui MD Active ZALEPLON 10 MG CAPS 1 cap po every other night ZALEPLON 41815745334 No Longer Active Vihsal Hui MD Active LYRICA 50 MG CAPS 1 tab po TID PREGABALIN 41831095444 No Longer Active Vishal Hui MD Active LORATADINE 10 MG TABS 1 tab po qd LORATADINE 44458249716 No Longer Active Vishal Hui MD Active VERAPAMIL HCL ER 180 MG CR-TABS 1 tab po bid VERAPAMIL HCL 73440235059 No Longer Active Vishal Hui MD Active MIRALAX POWD 1 capfull once daily POLYETHYLENE GLYCOL 3350 06419614230 No Longer Active Vishal Hui MD Active PREDNISONE 20 MG TABS 1 tab po qd PREDNISONE 09462273480 No Longer Active Renzo Thornton DO Active LEVOFLOXACIN 500 MG TABS 1 tab po qd LEVOFLOXACIN 86784865275 No Longer Active Renzo Thornton DO Active BUSPIRONE HCL 15 MG TABS 1 tab po TID BUSPIRONE HCL 50689629400 No Longer Active Renzo Thornton DO Active BENZTROPINE MESYLATE 1 MG TABS 1 tab po qd BENZTROPINE MESYLATE 37527497269 No Longer Active Renzo Thornton DO Active ATENOLOL 25 MG TABS 1 tab po qd ATENOLOL 54784211314 No Longer Active Renzo Thornton DO Active ESCITALOPRAM OXALATE 20 MG TABS 1 tab po qd ESCITALOPRAM OXALATE 37958430420 No Longer Active Renzo Thornton DO Active ADVAIR DISKUS 250-50 MCG/DOSE AEPB 1 puff BID FLUTICASONE-SALMETEROL 74106412518 No Longer Active Renzo Thornton DO Active PREDNISONE 20 MG TAB 2 tabs daily for 3 days, 1 tab daily for 3 days, 1/2 tab daily for 2 days PREDNISONE 44461946236 No Longer Active Vishal Hui MD Active CEFDINIR 300 MG CAPS by mouth twice a day CEFDINIR 19553635848 No Longer Active Vishal Hui MD Active LANSOPRAZOLE 30 MG CPDR 1 cap po qd LANSOPRAZOLE 41198651226 No Longer Active Vishal Hui MD Active BACLOFEN 20 MG TABS 1 tab po tid BACLOFEN 81634145849 No Longer Active Vishal Hui MD Active ADVAIR DISKUS 250-50 MCG/DOSE AEPB 1 puff BID ADVAIR DISKUS 250-50 MCG/DOSE AEPB FLUTICASONE-SALMETEROL Inactive ESCITALOPRAM OXALATE 20 MG TABS 1 tab po qd ESCITALOPRAM OXALATE 20 MG TABS 583198 ESCITALOPRAM OXALATE Inactive ATENOLOL 25 MG TABS 1 tab po qd ATENOLOL 25 MG TABS 349203 ATENOLOL Inactive BENZTROPINE MESYLATE 1 MG TABS 1 tab po qd BENZTROPINE MESYLATE 1 MG TABS 350882 BENZTROPINE MESYLATE Inactive BUSPIRONE HCL 15 MG TABS 1 tab po TID BUSPIRONE HCL 15 MG TABS 863036 BUSPIRONE HCL Inactive LEVOFLOXACIN 500 MG TABS 1 tab po qd LEVOFLOXACIN 500 MG TABS 730928 LEVOFLOXACIN Inactive PREDNISONE 20 MG TABS 1 tab po qd PREDNISONE 20 MG TABS 254930 PREDNISONE Inactive MIRALAX POWD 1 capfull once daily MIRALAX POWD 058772 POLYETHYLENE GLYCOL 3350 Inactive VERAPAMIL HCL ER 180 MG CR-TABS 1 tab po bid VERAPAMIL HCL ER 180 MG CR-TABS VERAPAMIL HCL Inactive LORATADINE 10 MG TABS 1 tab po qd LORATADINE 10 MG TABS 276732 LORATADINE Inactive LYRICA 50 MG CAPS 1 tab po TID LYRICA 50 MG CAPS PREGABALIN Inactive ZALEPLON 10 MG CAPS 1 cap po every other night ZALEPLON 10 MG CAPS 718206 ZALEPLON Inactive SAPHRIS 5 MG SUBL 1 tab po qd SAPHRIS 5 MG SUBL ASENAPINE MALEATE Inactive TRAZODONE HCL 50 MG TABS 1/2 tab po qd prn for anxiety TRAZODONE HCL 50 MG TABS 078647 TRAZODONE HCL Inactive LATUDA 20 MG TABS Take one by mouth daily LATUDA 20 MG TABS LURASIDONE HCL Inactive LISINOPRIL 20 MG TABS 1 tab po qd LISINOPRIL 20 MG TABS 596895 LISINOPRIL Inactive SAPHRIS 10 MG SUBL 1 [...] twice daily BACTRIM DS 800-160 MG TAB 857859 TRIMETHOPRIM-SULFAMETHOXAZOLE Inactive MULTIVITAMINS CAPS Take one by mouth daily MULTIVITAMINS CAPS MULTIPLE VITAMIN Inactive MELATONIN 3 MG CAPS 2 po q hs MELATONIN 3 MG CAPS 472449 MELATONIN Inactive KEFLEX 500 MG ORAL CAPS 1 cap QID by mouth KEFLEX 500 MG ORAL CAPS 323641 CEPHALEXIN Inactive CLINDAMYCIN HCL 150 MG CAPS 1 four times a day CLINDAMYCIN HCL 150 MG CAPS 322791 CLINDAMYCIN HCL Inactive DIFLUCAN 150 MG TAB 1 tablet by mouth daily DIFLUCAN 150 MG TAB 216822 FLUCONAZOLE Inactive PROZAC 20 MG CAP Take one by mouth daily PROZAC 20 MG CAP 561182 FLUOXETINE HCL Inactive IBUPROFEN 600 MG TAB 1 po TID PRN IBUPROFEN 600 MG TAB 881575 IBUPROFEN Inactive VYVANSE 40 MG CAPS 1 daily, VYVANSE 40 MG CAPS LISDEXAMFETAMINE DIMESYLATE Inactive TRAZODONE HCL 100 MG TAB take 1 at bedtime TRAZODONE HCL 100 MG TAB 976849 TRAZODONE HCL Inactive AMITRIPTYLINE HCL 100 MG TAB one at hs AMITRIPTYLINE HCL 100 MG TAB 406284 AMITRIPTYLINE HCL Inactive AMLODIPINE BESYLATE 5 MG TABS 1 tablet by mouth daily AMLODIPINE BESYLATE 5 MG TABS 966320 AMLODIPINE BESYLATE Inactive LATUDA 80 MG TABS Take one by mouth daily LATUDA 80 MG TABS LURASIDONE HCL Inactive SAPHRIS 5 MG SUBL 1 po bid SAPHRIS 5 MG SUBL ASENAPINE MALEATE Inactive PREDNISONE 20 MG TAB 2 tabs daily for 4 days, 1 tab daily for 4 days, 1/2 tab daily for 4 days PREDNISONE 20 MG TAB 374504 PREDNISONE Inactive AMBIEN 5 MG ORAL TABS 1 tab at bedtime AMBIEN 5 MG ORAL TABS 843444 ZOLPIDEM TARTRATE Inactive PROZAC 20 MG ORAL CAPS 1 tab daily PROZAC 20 MG ORAL CAPS 773142 FLUOXETINE HCL Inactive ABILIFY 15 MG ORAL TABS 1 tab daily ABILIFY 15 MG ORAL TABS 040580 ARIPIPRAZOLE Inactive METOPROLOL TARTRATE 50 MG TAB 1 po bid METOPROLOL TARTRATE 50 MG TAB 509493 METOPROLOL TARTRATE Inactive TRAMADOL HCL 50 MG TABS 1-2 po TID PRN Pain TRAMADOL HCL 50 MG TABS 581290 TRAMADOL HCL Inactive PIROXICAM 20 MG CAPS 1 cap po qd PRN Pain PIROXICAM 20 MG CAPS 263505 PIROXICAM Inactive MINIPRESS 2 MG CAPS 4 cap po at night MINIPRESS 2 MG CAPS 334269 PRAZOSIN HCL Inactive MIRALAX PACK 1 po qd PRN Constipation MIRALAX PACK 716318 POLYETHYLENE GLYCOL 3350 Inactive METOPROLOL TARTRATE 25 MG ORAL TABS 1/2 tablet twice daily for heart rate and blood pressure METOPROLOL TARTRATE 25 MG ORAL TABS 650957 METOPROLOL TARTRATE Inactive VALIUM 5 MG TAB Take 1-2 tablets daily VALIUM 5 MG TAB 666017 DIAZEPAM Inactive CEFDINIR 300 MG CAPS by mouth twice a day CEFDINIR 300 MG CAPS 850268 CEFDINIR Inactive PREDNISONE 20 MG TAB 2 tabs daily for 3 days, 1 tab daily for 3 days, 1/2 tab daily for 2 days PREDNISONE 20 MG TAB 238150 PREDNISONE Inactive BACTRIM DS 800-160 MG TABS 1 po BID x 7 days BACTRIM DS 800-160 MG TABS 133750 SULFAMETHOXAZOLE-TRIMETHOPRIM Inactive DIFLUCAN 150 MG TABS 1 pill every other day x 2 doses DIFLUCAN 150 MG TABS 927854 FLUCONAZOLE Inactive BACTRIM DS 800-160 MG TABS 1 pill by mouth twice daily BACTRIM DS 800-160 MG TABS 709067 SULFAMETHOXAZOLE-TRIMETHOPRIM Inactive KEFLEX 500 MG CAP 1 po TID x 10 days KEFLEX 500 MG CAP 076568 CEPHALEXIN Inactive Advance Directives Directive Description Start [...] % 11.6-14.8 platelet count 394 10^3/MM^3 10*3/mm3 098-897 3911/01/11 leukocyte count, blood 13.8 10^3/MM^3 10*3/mm3 4.6-10.2 [...] Panel - Chemistry sodium, serum 139 mmol/L 806-216 7482/12/03 carbon dioxide, venous blood 28.5 mmol/L 21.0-32.0 [...] 5.5 % 4.3-6.0 cholesterol, serum 159 mg/dL 411-418 0421/12/03 triglyceride, serum, fasting 118 mg/dL 30-200 HDL [...] Panel - Chemistry sodium, serum 139 mmol/L 932-562 1793/12/22 carbon dioxide, venous blood 26.8 mmol/L 21.0-32.0 potassium, serum 4.2 mmol/L 3.5-5.2 chloride, serum 103 mmol/L 98-107 blood glucose 115 mg/dL 65-110 urea nitrogen, blood 20 mg/dL 7-18 creatinine, serum 0.90 mg/dL 0.55-1.30 alanine aminotransferase (SGPT), serum 38 U/L - aspartate aminotransferase (SGOT), serum 19 U/L 15-37 calcium, serum 8.6 mg/dL 8.5-10.1 bilirubin, serum, total 0.30 mg/dL 0.00-1.00 sodium, serum 139 mmol/L 752-094 9198/01/11 carbon dioxide, venous blood 26.6 mmol/L 21.0-32.0 potassium, serum 4.1 mmol/L 3.5-5.2 chloride, serum 100 mmol/L 98-107 blood glucose 86 mg/dL 65-110 urea nitrogen, blood 16 mg/dL 7-18 creatinine, serum 1.00 mg/dL 0.55-1.30 alanine aminotransferase (SGPT), serum 48 U/L -78 aspartate aminotransferase (SGOT), serum 17 U/L 15-37 calcium, serum 9.1 mg/dL 8.5-10.1 bilirubin, serum, total 0.40 mg/dL 0.00-1.00 sodium, serum 142 mmol/L 816-335 7682/06/08 carbon dioxide, venous blood 27.6 mmol/L 21.0-32.0 [...] Rate - Chemistry sodium, serum 139 mmol/L 083-654 9657/12/11 carbon dioxide, venous blood 25.4 mmol/L 21.0-32.0 [...] mg/dL Encounters Code Encounter Date Provider Facility CPT-70936 Level 3 New Patient 16:53:37 CDT Albert Caldera MD [facility] CPT-05519 Level 3 Est. Patient 11:25:49 CDT Renzo Thornton DO [facility] CPT-12338 Level 3 Est. Patient 15:22:01 CDT Ahmet Carbajal MD [facility] CPT-34932 Level 4 Est. Patient 09:00:51 POT ROOM SUPERVISOR Vishal Hui MD [facility] CPT-77271 Level 3 Est. Patient 11:37:33 POT ROOM SUPERVISOR Vishal Hui MD [facility] CPT-39539 Level 3 Est. Patient 08:41:09 POT ROOM SUPERVISOR Vishal Hui MD [facility] CPT-99083 Level 4 Est. Patient 10:19:35 POT ROOM SUPERVISOR Vishal Hui MD [facility] CPT-18955 Level 3 Est. Patient 13:35:45 CDT Vishal Hui MD [facility] CPT-23455 Level 4 Est. Patient 10:08:37 CDT Vishal Hui MD [facility] CPT-04342 Level 3 Est. Patient 11:22:10 CDT Vishal Hui MD [facility] CPT-13872 Level 3 Est. Patient 11:03:32 CDT Sahara Rodriguez MD [facility]-12425 Level 3 Est. Patient 09:41:35 CDT Vishal Hui MD [facility] CPT-85956 Level 3 Est. Patient 12:00:41 CDT Neeraj Collins MD [facility] CPT-02070 Level 3 Est. Patient 09:16:24 CDT Vishal uHi MD [facility] CPT-69963 Level 4 Est. Patient 13:59:09 CDT Neeraj Collins MD [facility]-09250 Level 3 Est. Patient 15:19:43 CDT Renzo Thornton DO [facility] CPT-90039 Level 3 Est. Patient 18:10:26 CDT Sahara Rodriguez MD [facility] CPT-63522 Level 3 Est. Patient 14:49:50 CDT Vishal Hui MD [facility] CPT-44798 Level 4 Est. Patient 18:41:46 CDT Neeraj Collins MD [facility] CPT-55254 Level 4 Est. Patient 09:18:38 POT ROOM SUPERVISOR Vishal Hui MD [facility] CPT-63001 Level 3 Est. Patient 14:43:55 POT ROOM SUPERVISOR Vishal Hui MD [facility] CPT-76052 Level 3 Est. Patient 15:26:33 POT ROOM SUPERVISOR Sahara Rodriguez MD [facility]-98247 Level 3 Est. Patient 10:32:14 POT ROOM SUPERVISOR Vishal Hui MD [facility] CPT-42263 Level 3 Est. Patient 15:12:52 POT ROOM SUPERVISOR Vishal Hui MD [facility] CPT-80572 Level 4 Est. Patient 09:19:27 CDT Vishal Hui MD [facility] CPT-42473 Level 3 Est. Patient 15:53:00 CDT Renzo Thornton [facility] CPT-14174 Level 3 Est. Patient 15:50:30 CDT Renzo Thornton [facility] CPT-94261 Level 3 Est. Patient 16:55:24 CDT Vishal Hui MD [facility] Procedures Code Procedure Name Date Entry Date Standard Description CPT-59419 Chest 2V Frontal and Lat - XRAY USE ONLY 11:06:31 CDT CPT-28526 EKG Trac and Interp - XRAY USE ONLY 11:31:43 CDT 08/26 CPT-J3420 Vitamin B12 1000mcg (Cyanocobalamin) 08:10:26 POT ROOM SUPERVISOR 04/12 CPT-59603 Abx/Therapy Injection 08:10:26 POT ROOM SUPERVISOR CPT-G0438 Initial Annual Wellness Exam 19:01:01 POT ROOM SUPERVISOR CPT-J3420 Vitamin B12 1000mcg (Cyanocobalamin) 16:57:46 CDT 08/14 CPT-39335 Recombivax HB Injection Suspension 5 MCG/0.5ML 08:37:50 POT ROOM SUPERVISOR CPT-48059 Immunization Single Admin 08:37:50 POT ROOM SUPERVISOR CPT-J3420 Vitamin B12 1000mcg (Cyanocobalamin) 08:32:16 POT ROOM SUPERVISOR 03/11 CPT-50746 Abx/Therapy Injection 08:32:16 POT ROOM SUPERVISOR CPT-12276 Chest 2V Frontal and Lat 11:46:38 POT ROOM SUPERVISOR CPT-09906 Venipuncture Draw Fee 09:12:45 POT ROOM SUPERVISOR CPT-J3420 Vitamin B12 1000mcg (Cyanocobalamin) 08:50:15 POT ROOM SUPERVISOR 02/08 CPT-96463 Abx/Therapy Injection 08:50:15 POT ROOM SUPERVISOR CPT-Cryo Cryotherapy 10:19:35 POT ROOM SUPERVISOR CPT-000 Give Appropriate Flu Vaccine 09:22:16 CDT CPT-J3420 Vitamin B12 1000mcg (Cyanocobalamin) 19:08:57 CDT 01/11 CPT-40380 Abx/Therapy Injection 19:08:57 CDT CPT-J3420 Vitamin B12 1000mcg (Cyanocobalamin) 08:19:08 CDT 12/11 CPT-03623 Abx/Therapy Injection 08:19:08 CDT CPT-J3420 Vitamin B12 1000mcg (Cyanocobalamin) 14:48:00 CDT 11/09 CPT-48205 Abx/Therapy Injection 14:47:59 CDT CPT-J3420 Vitamin B12 1000mcg (Cyanocobalamin) 08:34:04 CDT 10/09 CPT-25845 Abx/Therapy Injection 08:34:04 CDT CPT-J3420 Vitamin B12 1000mcg (Cyanocobalamin) 09:18:52 CDT 09/11 CPT-24847 Abx/Therapy Injection 09:18:52 CDT CPT-J3420 Vitamin B12 1000mcg (Cyanocobalamin) 08:35:44 CDT 09/04 CPT-69147 Abx/Therapy Injection 08:35:44 CDT CPT-40549 Immunization Single Admin 11:07:16 CDT CPT-68396 Hepatitis B adult IM 11:07:16 CDT CPT-J3420 Vitamin B12 1000mcg (Cyanocobalamin) 11:00:49 CDT 08/28 CPT-J1040 Depo Medrol 80 mg (Methyl Prednisolone Acetate) 11:00: 49 CDT CPT-96194 Abx/Therapy Injection 11:00:49 CDT CPT-J1040 Depo Medrol 80 mg (Methyl Prednisolone Acetate) 09:16: 23 CDT CPT-J3420 Vitamin B12 1000mcg (Cyanocobalamin) 08:27:05 CDT 08/20 CPT-18410 Abx/Therapy Injection 08:27:05 CDT CPT-48104 Recombivax HB Injection Suspension 5 MCG/0.5ML 10:00:41 CDT CPT-04902 Administration single or combination vaccine inc oral 10 :00:41 CDT CPT-65842 Sono transvag pelvis non OB uterus ovaries cervix 16:36: 57 CDT CPT-89403 LS spine comp w obliq 09:50:55 POT ROOM SUPERVISOR CPT-05891 Abd compl w upright 09:50:55 POT ROOM SUPERVISOR CPT-J1100 Decadron 4mg (Dexamethasone) 15:51:24 POT ROOM SUPERVISOR CPT-J1030 Depo Medrol 40 mg (Methyl Prednisolone Acetate) 15:51: 24 POT ROOM SUPERVISOR CPT-98241 Abx/Therapy Injection 15:51:24 POT ROOM SUPERVISOR CPT-J1100 Decadron 4mg (Dexamethasone) 15:26:33 POT ROOM SUPERVISOR CPT-J1030 Depo Medrol 40 mg (Methyl Prednisolone Acetate) 15:26: 33 POT ROOM SUPERVISOR CPT-77602 Sono retroperitoneal complete kidneys and bladder 17:15: 30 CDT CPT-50217 Abd compl w upright 16:09:25 CDT CPT-J1100 Decadron 8mg (Dexamethasone) 17:07:57 CDT CPT-13501 Abx/Therapy Injection 17:07:57 CDT CPT-J1100 Decadron 8mg (Dexamethasone) 16:55:24 CDT CPT-17332 Chest 2V Frontal and Lat 16:32:44 CDT
--- OUTSIDE RECORDS SUMMARY | 2016-11-05 00:39 | XMS REPORT ---
Author Author [facility] Medical Staff Organization [facility] Address [address] [place], [place] [id number] Phone [phone] Summary purpose TRANSITION OF CARE AUTO GENERATION [...] tests and/or laboratory data RESULTS Routine Urinalysis 21-23-120144:20:00 Result Normal Range Units Color YELLOW Clarity Clear Specific [place] 1.010 1.003-1.035 pH 5.5 4.5-8.0 Glucose NEGATIVE Bilirubin NEGATIVE Ketones NEGATIVE Protein NEGATIVE Urobilinogen 0.2 0-0.2 E.U./dL Nitrites NEGATIVE Blood NEGATIVE Leukocytes NEGATIVE WBCs 0-5 RBCs 0-5 Squamous Epithelial Few Bacteria Occasional Chemistry [id number]:27:00 Result Normal Range Units Sodium 140 134-145 [...] 10-20 Estimated GFR 75 >=60 mL/min/1.7 Hematology [id number]:27:00 Result Normal Range Units WBC 10.3 4.8-10.8 103/uL RBC 4.5 4.2-5.4 106/uL HGB 14.0 12.0-16.0 g/dl HCT 40.9 36.9-47.0 % MCV 91.3 81-99 FL MCH H 31.3 27-31 pg MCHC 34.2 33-37 g/dl RDW 12.5 11.5-15.5 % PLT 363 130-400 103/uL MPV 10.1 7.3-10.4 FL Neutro % 57.1 40-70 % Lymph % 31.9 20-40 % [place] % 8.9 0-10.0 % Eos % 1.4 0-7.0 % Baso % 0.4 0-2 % Neutro # 5.9 1.5-7.5 103/uL Lymph # 3.3 0.9-4.0 103/uL [place] # H 0.9 0-0.8 103/uL Eos # 0.1 0-0.6 103/uL Baso # 0.0 0-0.1 103/uL Body Fluid [id number]:20:00 Result Normal Range Units pH 5.5 4.5-8.0 Radiology Results [id number]:27:00 Result Normal Range Units MPV 10.1 7.3-10.4 FL History of procedures Procedure Code Code Type Description Date Performed Performing Physician 63060 CPT-4 ROUTINE VENIPUNCTURE 09-15-2015 MERT KELLY 80849 CPT-4 COMPREHEN METABOLIC PANEL 09-15-2015 MERT KELLY 57741 CPT-4 URINALYSIS, AUTO W/SCOPE 09-15-2015 MERT KELLY 33270 CPT-4 COMPLETE CBC W/AUTO DIFF WBC 09-15-2015 MERT KELLY 02256 CPT-4 MYCOPLASMA ANTIBODY 09-15-2015 MERT KELLY 54415 CPT-4 EMERGENCY DEPT VISIT 09-15-2015 MERT KELLY 50138 CPT-4 EMERGENCY DEPT VISIT 09-15-2015 MERT KELLY 19888 CPT-4 HYDRATION IV INFUSION, INIT 09-15-2015 MERT KELLY 25260 CPT-4 HYDRATE IV INFUSION, ADD-ON 09-15-2015 MERT ROBIN Functional status Functional Status Finding Observation Time Abdomen Appearance obese :00 Vick no :00 Urination normal :00 Quality sym/unlabored :00 Secretions no :00 Breath Sounds RUL clear :00 Breath Sounds RML clear :00 Breath Sounds RLL clear : Breath Sounds BENJA clear :00 Breath Sounds LLL clear :00 Airway natural : Chest Tube no :00 Oxygen no 30-12-172215:00 Temp >100.4 no :00 Temp <96.8 no :00 Chills with rigors no : HR > 90bpm yes :00 Respirations > 20 no :00 Systolic <90 no :00 headache stiff neck no :00 IV Site [...] Pulse 96beats per minute : Oxygen Saturation 97% : BP Systolic 115mmHg :00 BP Diastolic 54mmHg : Temperature 98.4F :00 Social history Type Value Smoking Status CURRENT EVERY DAY SMOKER Treatment Plan No treatment plan text is available for this visit. Hospital discharge instructions Dismissal Condition good Disposition on DC home DC Inst/Educ Give yes Med/Side Effects Rev yes PNE Vac No Flu Vac 2015 Tetanus Vac 2014
--- OUTSIDE RECORDS SUMMARY | 2016-11-05 00:42 | XMS REPORT | Clinical Summary ---
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 Hypoxemia Neck pain 723.1 Resolved Vishal Hui [...] ICD-789.00 Inactive Vishal Hui MD Cellulitis ICD-682.9 Jmi Hui MD Pelvic pain ICD-625.9 Jim Hui MD Abscess, skin ICD-682.9 Jim Hui MD Physical examination ICD-V70.0 Jim Hui MD Vaginitis ICD-616.10 Jim Hiu MD 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 Jim Hui MD [...] times daily as needed for cough BENZONATATE 60735215773 Active Vishal Hui MD Active METHYLPREDNISOLONE 4 MG ORAL TABS po daily METHYLPREDNISOLONE 91766096168 Active Vishal Hui MD Active LEVOFLOXACIN 500 MG ORAL TABS po daily LEVOFLOXACIN 70801021460 Active Vishal Hui MD Active CHANTIX STARTING MONTH EARNEST 0.5 MG X 11 & 1 MG X 42 TABS take as directed 2015 VARENICLINE TARTRATE 18869370881 Active Ahmet Carbajal MD Active CHANTIX 1 MG TABS 1 twice a day to help quit smoking VARENICLINE TARTRATE 33116650412 Active Ahmet Carbajal MD Active HYDROCODONE-ACETAMINOPHEN 5-325 MG TABS 1 to 2 four times a day as needed for pain use until can be seen by specialist HYDROCODONE- ACETAMINOPHEN 33791726695 No Longer Active Vishal Hui MD Active PROAIR HFA 108 (90 BASE) MCG/ACT AERS 2 puffs four times a day as needed 2015 ALBUTEROL SULFATE 09340064184 No Longer Active Vishal Hui MD Active PREDNISONE 20 MG TABS 2 daily for 5 days then 1 daily for 5 days PREDNISONE 10754763359 No Longer Active Vishal Hui MD Active ZITHROMAX Z-EARNEST 250 MG TABS 2 today and then 1 daily for 4 days AZITHROMYCIN 58287228748 No Longer Active Vishal Hui MD Active DICLOFENAC SODIUM 50 MG TBEC 1 tablet by mouth four times daily PRN Pain 2015 DICLOFENAC SODIUM 05149795655 Active Vishal Hui MD Active DICLOFENAC POTASSIUM TABS Take 1 tablet twice a day (pt. is not sure of the dose.) DICLOFENAC POTASSIUM TABS 60139156076 No Longer Active Vishal Hui MD Active VERAPAMIL HCL ER 120 MG ORAL CR-TABS Take 1 tablet by mouth twice a day. VERAPAMIL HCL 03271786404 Active Vishal Hui MD Active FLAGYL 500 MG TAB 1 tablet by mouth bid METRONIDAZOLE 90500610004 No Longer Active Vishal Hui MD Active ABILIFY MAINTENA 400 MG IM SUSR 400mg injection every 28 days ARIPIPRAZOLE 99661867302 Active Silvia Casey SKIVER MACHINE OPERATOR Active FLUTICASONE PROPIONATE 50 MCG/ACT SUSP 2 sprays each nostril daily before bed. FLUTICASONE PROPIONATE 50233573515 Active Fabiola Johnson YOUTH ACCOMMODATION SUPPORT WORKER Active ADZENYS XR-ODT 6.3 MG ORAL TBED 1 tab po daily for ADHD AMPHETAMINE 63306724784 Active Fabiolaniall Johnson APRN Active BENADRYL 25 MG CAP 4 po at bedtime for insomnia DIPHENHYDRAMINE HCL 09605987139 Active Fabiola Johnson LEANN Active KLONOPIN 1 MG ORAL TABS 1 tab po TID CLONAZEPAM 59433018504 Active Fabiolaniall Johnson APRN Active VALIUM 5 MG TAB Take 1-2 tablets daily DIAZEPAM 78541400157 No Longer Active Fabiola Johnson LEANN Active METOPROLOL TARTRATE 25 MG ORAL TABS 1/2 tablet twice daily for heart rate and blood pressure METOPROLOL TARTRATE 38939082347 No Longer Active Fabiolaniall Johnson APRN Active MIRALAX ORAL POWD 17GMS DAILY IN WATER POLYETHYLENE GLYCOL 3350 30880543023 Active Vishal Hui MD Active VIIBRYD 10 MG ORAL TABS Take 1 tablet once a day VILAZODONE HCL 66685655454 Active Ahmet Carbajal MD Active MIRALAX PACK 1 po qd PRN Constipation POLYETHYLENE GLYCOL 3350 24014912946 No Longer Active Ahmet Carbajal MD Active MINIPRESS 2 MG CAPS 4 cap po at night PRAZOSIN HCL 41177414899 No Longer Active Ahmet Carbajal MD Active PIROXICAM 20 MG CAPS 1 cap po qd PRN Pain PIROXICAM 81103971160 No Longer Active Ahmet Carbajal MD Active TRAMADOL HCL 50 MG TABS 1-2 po TID PRN Pain TRAMADOL HCL 76918600385 No Longer Active Ahmet Carbajal MD Active METOPROLOL TARTRATE 50 MG TAB 1 po bid METOPROLOL TARTRATE 09900639234 No Longer Active Ahmet Carbajal MD Active ABILIFY 15 MG ORAL TABS 1 tab daily ARIPIPRAZOLE 44388550364 No Longer Active Ahmet Carbajal MD Active PROZAC 20 MG ORAL CAPS 1 tab daily FLUOXETINE HCL 22129518946 No Longer Active Ahmet Carbajal MD Active AMBIEN 5 MG ORAL TABS 1 tab at bedtime ZOLPIDEM TARTRATE 97461470028 No Longer Active Ahmet Carbajal MD Active PREDNISONE 20 MG TAB 2 tabs daily for 4 days, 1 tab daily for 4 days, 1/2 tab daily for 4 days PREDNISONE 44060069141 No Longer Active Ahmet Carbajal MD Active KEFLEX 500 MG CAP 1 po TID x 10 days CEPHALEXIN 46118995929 No Longer Active Vishal Hui MD Active IMITREX 50 MG ORAL TABS 1/2 tab every 6 hours prn SUMATRIPTAN SUCCINATE 58627810504 Active Jillina Frazell YOUTH ACCOMMODATION SUPPORT WORKER Active TOPAMAX 50 MG ORAL TABS 1 tab twice daily TOPIRAMATE 05718111961 Active Vishal Hui MD Active SAPHRIS 5 MG SUBL 1 po bid ASENAPINE MALEATE 44671371889 No Longer Active Jillina Frazell YOUTH ACCOMMODATION SUPPORT WORKER Active LATUDA 80 MG TABS Take one by mouth daily LURASIDONE HCL 27145677623 No Longer Active Jillina Frazell YOUTH ACCOMMODATION SUPPORT WORKER Active AMLODIPINE BESYLATE 5 MG TABS 1 tablet by mouth daily AMLODIPINE BESYLATE 54789819044 No Longer Active Jillina Fralebron WALTERSN Active AMITRIPTYLINE HCL 100 MG TAB one at hs AMITRIPTYLINE HCL 58488025150 No Longer Active Vishal Hui MD Active TRAZODONE HCL 100 MG TAB take 1 at bedtime TRAZODONE HCL 54730372283 No Longer Active Vishal Hui MD Active VYVANSE 40 MG CAPS 1 daily, LISDEXAMFETAMINE DIMESYLATE 49262775653 No Longer Active Vishal Hui MD Active IBUPROFEN 600 MG TAB 1 po TID PRN IBUPROFEN 65611436080 No Longer Active Vishal Hui MD Active PROZAC 20 MG CAP Take one by mouth daily FLUOXETINE HCL 84348496058 No Longer Active Vishal Hui MD Active ZOFRAN 4 MG TABS 1 po q6hr PRN Nausea ONDANSETRON HCL Active Vishal Hui MD Active BACTRIM DS 800-160 MG TABS 1 pill by mouth twice daily SULFAMETHOXAZOLE-TRIMETHOPRIM 27588979958 No Longer Active Sahara Rodriguez MD PhD Active DIFLUCAN 150 MG TAB 1 tablet by mouth daily FLUCONAZOLE 80670701730 No Longer Active Vishal Hui MD Active TIZANIDINE HCL 4 MG TABS 1 po q6hr PRN Muscle Spasm/Back Pain TIZANIDINE HCL 77779926251 Active Vishal Hui MD Active CLINDAMYCIN HCL 150 MG CAPS 1 four times a day CLINDAMYCIN HCL 21060805904 No Longer Active Neeraj Collins MD Active KEFLEX 500 MG ORAL CAPS 1 cap QID by mouth CEPHALEXIN 58993914773 No Longer Active Neeraj Collins MD Active DIFLUCAN 150 MG TABS 1 pill every other day x 2 doses FLUCONAZOLE 75241981102 No Longer Active Sahara Rodriguez MD PhD Active MELATONIN 3 MG CAPS 2 po q hs MELATONIN 15300440663 No Longer Active Sahara Rodriguez MD PhD Active MULTIVITAMINS CAPS Take one by mouth daily MULTIPLE VITAMIN 75953344816 No Longer Active Sahara Rodriguez MD PhD Active BACTRIM DS 800-160 MG TAB 1 tab by mouth twice daily TRIMETHOPRIM-SULFAMETHOXAZOLE 20187237253 No Longer Active Sahara Rodriguez MD PhD Active [facility] PROBIOTIC ORAL CHEW 2 daily po PROBIOTIC PRODUCT 59236643240 No Longer Active Sahara Rodriguez MD PhD Active BACTRIM DS 800-160 MG TABS 1 po BID x 7 days SULFAMETHOXAZOLE-TRIMETHOPRIM 73234212657 No Longer Active Vishal Hui MD Active CHANTIX STARTING MONTH EARNEST 0.5 MG X 11 & 1 MG X 42 TABS 0.5mg daily for 3 days , then 0.5mg BID for 4 days, then 1mg BID VARENICLINE TARTRATE 19115063659 No Longer Active BERNARD GrayHope Active VERAPAMIL HCL CR 120 MG TAB CR 1 po bid VERAPAMIL HCL 81674014310 No Longer Active Vishal Hui MD Active METOPROLOL SUCCINATE 50 MG TB24 1 tablet by mouth daily METOPROLOL SUCCINATE 60247587554 No Longer Active Vishal Hui MD Active SAPHRIS 10 MG SUBL 1 tab po bid ASENAPINE MALEATE 07982470562 No Longer Active Vishal Hui MD Active LISINOPRIL 20 MG TABS 1 tab po qd LISINOPRIL 38397522860 No Longer Active Vishal Hui MD Active LATUDA 20 MG TABS Take one by mouth daily LURASIDONE HCL 27939675096 No Longer Active Vishal Hui MD Active TRAZODONE HCL 50 MG TABS 1/2 tab po qd prn for anxiety TRAZODONE HCL 69910054127 No Longer Active Vishal Hui MD Active OMEPRAZOLE 20 MG TBEC 1 po q a.m. 30min prior to first food intake OMEPRAZOLE 97600022553 Active Vishal Hui MD Active RANITIDINE HCL 150 MG CAPS 1 twice a day RANITIDINE HCL 63099833387 Active Luigi Martínez APRN Active LINZESS 290 MCG CAPS Take one by mouth daily LINACLOTIDE 58640669340 No Longer Active Vishal Hui MD Active SAPHRIS 5 MG SUBL 1 tab po qd ASENAPINE MALEATE 69466538014 No Longer Active Vishal Hui MD Active ZALEPLON 10 MG CAPS 1 cap po every other night ZALEPLON 68929216748 No Longer Active Vishal Hui MD Active LYRICA 50 MG CAPS 1 tab po TID PREGABALIN 22126241868 No Longer Active Vishal Hui MD Active LORATADINE 10 MG TABS 1 tab po qd LORATADINE 60697056792 No Longer Active Vishal Hui MD Active VERAPAMIL HCL ER 180 MG CR-TABS 1 tab po bid VERAPAMIL HCL 86301732451 No Longer Active Vishal Hui MD Active MIRALAX POWD 1 capfull once daily POLYETHYLENE GLYCOL 3350 92816254609 No Longer Active Vishal Hui MD Active PREDNISONE 20 MG TABS 1 tab po qd PREDNISONE 28015864839 No Longer Active Renzo Thornton DO Active LEVOFLOXACIN 500 MG TABS 1 tab po qd LEVOFLOXACIN 55005521631 No Longer Active Renzo Thornton DO Active BUSPIRONE HCL 15 MG TABS 1 tab po TID BUSPIRONE HCL 70995341847 No Longer Active Renzo Thornton DO Active BENZTROPINE MESYLATE 1 MG TABS 1 tab po qd BENZTROPINE MESYLATE 12597629627 No Longer Active Renzo Thornton DO Active ATENOLOL 25 MG TABS 1 tab po qd ATENOLOL 31034439786 No Longer Active Renzo Thornton DO Active ESCITALOPRAM OXALATE 20 MG TABS 1 tab po qd ESCITALOPRAM OXALATE 87237903150 No Longer Active Renzo Thornton DO Active ADVAIR DISKUS 250-50 MCG/DOSE AEPB 1 puff BID FLUTICASONE-SALMETEROL 09853477603 No Longer Active Renzo Thornton DO Active PREDNISONE 20 MG TAB 2 tabs daily for 3 days, 1 tab daily for 3 days, 1/2 tab daily for 2 days PREDNISONE 48078637619 No Longer Active Vishal Hui MD Active CEFDINIR 300 MG CAPS by mouth twice a day CEFDINIR 88003268666 No Longer Active Vishal Hui MD Active LANSOPRAZOLE 30 MG CPDR 1 cap po qd LANSOPRAZOLE 62430434867 No Longer Active Vishal Hui MD Active BACLOFEN 20 MG TABS 1 tab po tid BACLOFEN 60730283320 No Longer Active Vishal Hui MD Active ADVAIR DISKUS 250-50 MCG/DOSE AEPB 1 puff BID ADVAIR DISKUS 250-50 MCG/DOSE AEPB FLUTICASONE-SALMETEROL Inactive ESCITALOPRAM OXALATE 20 MG TABS 1 tab po qd ESCITALOPRAM OXALATE 20 MG TABS 031416 ESCITALOPRAM OXALATE Inactive ATENOLOL 25 MG TABS 1 tab po qd ATENOLOL 25 MG TABS 575166 ATENOLOL Inactive BENZTROPINE MESYLATE 1 MG TABS 1 tab po qd BENZTROPINE MESYLATE 1 MG TABS 897107 BENZTROPINE MESYLATE Inactive BUSPIRONE HCL 15 MG TABS 1 tab po TID BUSPIRONE HCL 15 MG TABS 199613 BUSPIRONE HCL Inactive LEVOFLOXACIN 500 MG TABS 1 tab po qd LEVOFLOXACIN 500 MG TABS 366473 LEVOFLOXACIN Inactive PREDNISONE 20 MG TABS 1 tab po qd PREDNISONE 20 MG TABS 387215 PREDNISONE Inactive MIRALAX POWD 1 capfull once daily MIRALAX POWD 932863 POLYETHYLENE GLYCOL 3350 Inactive VERAPAMIL HCL ER 180 MG CR-TABS 1 tab po bid VERAPAMIL HCL ER 180 MG CR-TABS VERAPAMIL HCL Inactive LORATADINE 10 MG TABS 1 tab po qd LORATADINE 10 MG TABS 429424 LORATADINE Inactive LYRICA 50 MG CAPS 1 tab po TID LYRICA 50 MG CAPS PREGABALIN Inactive ZALEPLON 10 MG CAPS 1 cap po every other night ZALEPLON 10 MG CAPS 823399 ZALEPLON Inactive SAPHRIS 5 MG SUBL 1 tab po qd SAPHRIS 5 MG SUBL ASENAPINE MALEATE Inactive TRAZODONE HCL 50 MG TABS 1/2 tab po qd prn for anxiety TRAZODONE HCL 50 MG TABS 427312 TRAZODONE HCL Inactive LATUDA 20 MG TABS Take one by mouth daily LATUDA 20 MG TABS LURASIDONE HCL Inactive LISINOPRIL 20 MG TABS 1 tab po qd LISINOPRIL 20 MG TABS 814454 LISINOPRIL Inactive SAPHRIS 10 MG SUBL 1 [...] twice daily BACTRIM DS 800-160 MG TAB 386149 TRIMETHOPRIM-SULFAMETHOXAZOLE Inactive MULTIVITAMINS CAPS Take one by mouth daily MULTIVITAMINS CAPS MULTIPLE VITAMIN Inactive MELATONIN 3 MG CAPS 2 po q hs MELATONIN 3 MG CAPS 355364 MELATONIN Inactive KEFLEX 500 MG ORAL CAPS 1 cap QID by mouth KEFLEX 500 MG ORAL CAPS 400480 CEPHALEXIN Inactive CLINDAMYCIN HCL 150 MG CAPS 1 four times a day CLINDAMYCIN HCL 150 MG CAPS 890943 CLINDAMYCIN HCL Inactive DIFLUCAN 150 MG TAB 1 tablet by mouth daily DIFLUCAN 150 MG TAB 517823 FLUCONAZOLE Inactive PROZAC 20 MG CAP Take one by mouth daily PROZAC 20 MG CAP 307979 FLUOXETINE HCL Inactive IBUPROFEN 600 MG TAB 1 po TID PRN IBUPROFEN 600 MG TAB 238278 IBUPROFEN Inactive VYVANSE 40 MG CAPS 1 daily, VYVANSE 40 MG CAPS LISDEXAMFETAMINE DIMESYLATE Inactive TRAZODONE HCL 100 MG TAB take 1 at bedtime TRAZODONE HCL 100 MG TAB 320833 TRAZODONE HCL Inactive AMITRIPTYLINE HCL 100 MG TAB one at hs AMITRIPTYLINE HCL 100 MG TAB 267364 AMITRIPTYLINE HCL Inactive AMLODIPINE BESYLATE 5 MG TABS 1 tablet by mouth daily AMLODIPINE BESYLATE 5 MG TABS 350993 AMLODIPINE BESYLATE Inactive LATUDA 80 MG TABS Take one by mouth daily LATUDA 80 MG TABS LURASIDONE HCL Inactive SAPHRIS 5 MG SUBL 1 po bid SAPHRIS 5 MG SUBL ASENAPINE MALEATE Inactive PREDNISONE 20 MG TAB 2 tabs daily for 4 days, 1 tab daily for 4 days, 1/2 tab daily for 4 days PREDNISONE 20 MG TAB 845309 PREDNISONE Inactive AMBIEN 5 MG ORAL TABS 1 tab at bedtime AMBIEN 5 MG ORAL TABS 413036 ZOLPIDEM TARTRATE Inactive PROZAC 20 MG ORAL CAPS 1 tab daily PROZAC 20 MG ORAL CAPS 149015 FLUOXETINE HCL Inactive ABILIFY 15 MG ORAL TABS 1 tab daily ABILIFY 15 MG ORAL TABS 884437 ARIPIPRAZOLE Inactive METOPROLOL TARTRATE 50 MG TAB 1 po bid METOPROLOL TARTRATE 50 MG TAB 630845 METOPROLOL TARTRATE Inactive TRAMADOL HCL 50 MG TABS 1-2 po TID PRN Pain TRAMADOL HCL 50 MG TABS 040163 TRAMADOL HCL Inactive PIROXICAM 20 MG CAPS 1 cap po qd PRN Pain PIROXICAM 20 MG CAPS 439486 PIROXICAM Inactive MINIPRESS 2 MG CAPS 4 cap po at night MINIPRESS 2 MG CAPS 911242 PRAZOSIN HCL Inactive MIRALAX PACK 1 po qd PRN Constipation MIRALAX PACK 278126 POLYETHYLENE GLYCOL 3350 Inactive METOPROLOL TARTRATE 25 MG ORAL TABS 1/2 tablet twice daily for heart rate and blood pressure METOPROLOL TARTRATE 25 MG ORAL TABS 099893 METOPROLOL TARTRATE Inactive VALIUM 5 MG TAB Take 1-2 tablets daily VALIUM 5 MG TAB 513355 DIAZEPAM Inactive FLAGYL 500 MG TAB 1 tablet by mouth bid FLAGYL 500 MG TAB 624016 METRONIDAZOLE Inactive DICLOFENAC POTASSIUM TABS Take 1 tablet twice a day (pt. is not sure of the dose.) DICLOFENAC POTASSIUM TABS DICLOFENAC POTASSIUM TABS Inactive ZITHROMAX Z-EARNEST 250 MG TABS 2 today and then 1 daily for 4 days ZITHROMAX Z-EARNEST 250 MG TABS 2269523 AZITHROMYCIN Inactive PREDNISONE 20 MG TABS 2 daily for 5 days then 1 daily for 5 days PREDNISONE 20 MG TABS 003953 PREDNISONE Inactive PROAIR HFA 108 (90 BASE) MCG/ACT AERS 2 puffs four times a day as needed 2015 PROAIR HFA 108 (90 BASE) MCG/ACT AERS ALBUTEROL SULFATE Inactive HYDROCODONE-ACETAMINOPHEN 5-325 MG TABS 1 to 2 four times a day as needed for pain use until can be seen by specialist HYDROCODONE- ACETAMINOPHEN 5-325 MG TABS 205713 HYDROCODONE-ACETAMINOPHEN Inactive CEFDINIR 300 MG CAPS by mouth twice a day CEFDINIR 300 MG CAPS 923015 CEFDINIR Inactive PREDNISONE 20 MG TAB 2 tabs daily for 3 days, 1 tab daily for 3 days, 1/2 tab daily for 2 days PREDNISONE 20 MG TAB 604140 PREDNISONE Inactive BACTRIM DS 800-160 MG TABS 1 po BID x 7 days BACTRIM DS 800-160 MG TABS 19820521 SULFAMETHOXAZOLE-TRIMETHOPRIM Inactive DIFLUCAN 150 MG TABS 1 pill every other day x 2 doses DIFLUCAN 150 MG TABS 570428 FLUCONAZOLE Inactive BACTRIM DS 800-160 MG TABS 1 pill by mouth twice daily BACTRIM DS 800-160 MG TABS 19820521 SULFAMETHOXAZOLE-TRIMETHOPRIM Inactive KEFLEX 500 MG CAP 1 po TID x 10 days KEFLEX 500 MG CAP 427821 CEPHALEXIN Inactive Advance Directives Directive Description Start [...] % 11.6-14.8 platelet count 394 10^3/MM^3 10*3/mm3 864-264 1673/01/11 leukocyte count, blood 13.8 10^3/MM^3 10*3/mm3 4.6-10.2 [...] Panel - Chemistry sodium, serum 139 mmol/L 480-854 2259/12/03 carbon dioxide, venous blood 28.5 mmol/L 21.0-32.0 [...] 5.5 % 4.3-6.0 cholesterol, serum 159 mg/dL 048-843 8168/12/03 triglyceride, serum, fasting 118 mg/dL 30-200 HDL [...] Panel - Chemistry sodium, serum 139 mmol/L 725-199 0571/12/22 carbon dioxide, venous blood 26.8 mmol/L 21.0-32.0 potassium, serum 4.2 mmol/L 3.5-5.2 chloride, serum 103 mmol/L 98-107 blood glucose 115 mg/dL 65-110 urea nitrogen, blood 20 mg/dL 7-18 creatinine, serum 0.90 mg/dL 0.55-1.30 alanine aminotransferase (SGPT), serum 38 U/L aspartate aminotransferase (SGOT), serum 19 U/L 15-37 calcium, serum 8.6 mg/dL 8.5-10.1 bilirubin, serum, total 0.30 mg/dL 0.00-1.00 sodium, serum 139 mmol/L 156-226 5656/01/11 carbon dioxide, venous blood 26.6 mmol/L 21.0-32.0 potassium, serum 4.1 mmol/L 3.5-5.2 chloride, serum 100 mmol/L 98-107 blood glucose 86 mg/dL 65-110 urea nitrogen, blood 16 mg/dL - creatinine, serum 1.00 mg/dL 0.55-1.30 alanine aminotransferase (SGPT), serum 48 U/L aspartate aminotransferase (SGOT), serum 17 U/L 15-37 calcium, serum 9.1 mg/dL 8.5-10.1 bilirubin, serum, total 0.40 mg/dL 0.00-1.00 sodium, serum 142 mmol/L 554-353 6110/06/08 carbon dioxide, venous blood 27.6 mmol/L 21.0-32.0 potassium, serum 4.0 mmol/L 3.5-5.2 chloride, serum 105 mmol/L 98-107 blood glucose 95 mg/dL 65-110 urea nitrogen, blood 8 mg/dL - creatinine, serum 0.75 mg/dL 0.55-1.30 alanine aminotransferase (SGPT), serum 49 U/L aspartate aminotransferase (SGOT), serum 28 U/L 15-37 calcium, serum 9.4 mg/dL 8.5-10.1 bilirubin, serum, total 0.30 mg/dL 0.00-1.00 sodium, serum 140 mmol/L 801-095 8435/08/08 carbon dioxide, venous blood 33.7 mmol/L 21.0-32.0 [...] Rate - Chemistry sodium, serum 139 mmol/L 967-792 8231/12/11 carbon dioxide, venous blood 25.4 mmol/L 21.0-32.0 [...] mg/dL Encounters Code Encounter Date Provider Facility CPT-90031 Level 3 Est. Patient 15:50:44 CDT Vishal Hui MD [facility] CPT-44204 Level 3 Est. Patient 11:36:17 CDT Ahmet Carbajal MD [facility] CPT-44658 Level 3 Est. Patient 13:29:16 CDT Vishal Hui MD [facility] CPT-18193 Level 3 Est. Patient 14:27:52 CDT Neeraj Collins MD [facility] CPT-68353 Level 3 Est. Patient 08:56:03 CDT Luigi Martínez [facility] CPT-34504 Level 4 Est. Patient 12:11:48 CDT Fabiola Johnson [facility] CPT-34692 Level 3 New Patient 16:53:37 CDT Albert Caldera MD [facility] CPT-56437 Level 3 Est. Patient 11:25:49 CDT Renzo Thornton DO [facility] CPT-34953 Level 3 Est. Patient 15:22:01 CDT Ahmet Carbajal MD [facility] CPT-71680 Level 4 Est. Patient 09:00:51 CLINIC CHARGE NURSE Vishal Hui MD [facility] CPT-90208 Level 3 Est. Patient 11:37:33 CLINIC CHARGE NURSE Vishal Hui MD [facility] CPT-83980 Level 3 Est. Patient 08:41:09 CLINIC CHARGE NURSE Vishal Hui MD [facility] CPT-84156 Level 4 Est. Patient 10:19:35 CLINIC CHARGE NURSE Vishal Hui MD [facility] CPT-79858 Level 3 Est. Patient 13:35:45 CDT Vishal Hui MD [facility] CPT-42391 Level 4 Est. Patient 10:08:37 CDT Vishal Hui MD [facility] CPT-74667 Level 3 Est. Patient 11:22:10 CDT Vishal Hui MD [facility] CPT-88097 Level 3 Est. Patient 11:03:32 CDT Sahara Rodriguez MD, PhD [facility] CPT-49640 Level 3 Est. Patient 09:41:35 CDT Vishal Hui MD [facility]-57230 Level 3 Est. Patient 12:00:41 CDT Neeraj Collins MD [facility] CPT-89924 Level 3 Est. Patient 09:16:24 CDT Vishal Hui MD [facility] CPT-54066 Level 4 Est. Patient 13:59:09 CDT Neeraj Collins MD [facility] CPT-48236 Level 3 Est. Patient 15:19:43 CDT Renzo Thornton [facility] CPT-41671 Level 3 Est. Patient 18:10:26 CDT Sahara Rodriguez MD PhD [facility] CPT-83382 Level 3 Est. Patient 14:49:50 CDT Vishal Hui MD [facility] CPT-30707 Level 4 Est. Patient 18:41:46 CDT Neeraj Collins MD [facility] CPT-27137 Level 4 Est. Patient 09:18:38 CLINIC CHARGE NURSE Vishal Hui MD [facility] CPT-45098 Level 3 Est. Patient 14:43:55 CLINIC CHARGE NURSE Vishal Hui MD [facility] CPT-91914 Level 3 Est. Patient 15:26:33 CLINIC CHARGE NURSE Sahara Rodriguez MD PhD [facility] CPT-73047 Level 3 Est. Patient 10:32:14 CLINIC CHARGE NURSE Vishal Hui MD [facility] CPT-18388 Level 3 Est. Patient 15:12:52 CLINIC CHARGE NURSE Vishal Hui MD [facility] CPT-48348 Level 4 Est. Patient 09:19:27 CDT Vishal Hui MD [facility] CPT-82486 Level 3 Est. Patient 15:53:00 CDT Renzo Thornton [facility] CPT-20423 Level 3 Est. Patient 15:50:30 CDT Renzo Thornton [facility] CPT-45533 Level 3 Est. Patient 16:55:24 CDT Vishal Hui MD [facility] Procedures Code Procedure Name Date Entry Date Standard Description CPT-38708 Abx/Therapy Injection 08:47:09 CDT CPT-70255 Abx/Therapy Injection 13:29:56 CDT CPT-10074 Abx/Therapy Injection 08:36:16 CDT CPT-95405 Wet Mount - LAB USE ONLY 17:44:58 CDT CPT-78873 UA w micro - LAB USE ONLY 17:44:58 CDT CPT-40489 CMP - LAB USE ONLY 17:44:58 CDT CPT-24180 Venipuncture Draw Fee 17:44:58 CDT CPT-55489 Cervical Min 4V - XRAY USE ONLY 09:01:40 CDT CPT-37886 Chest 2V Frontal and Lat - XRAY USE ONLY 11:06:31 CDT CPT-71895 EKG Trac and Interp - XRAY USE ONLY 11:31:43 CDT 08/26 CPT-J3420 Vitamin B12 1000mcg (Cyanocobalamin) 08:10:26 CLINIC CHARGE NURSE 04/12 CPT-56206 Abx/Therapy Injection 08:10:26 CLINIC CHARGE NURSE CPT-G0438 Initial Annual Wellness Exam 19:01:01 CLINIC CHARGE NURSE CPT-J3420 Vitamin B12 1000mcg (Cyanocobalamin) 16:57:46 CDT 08/14 CPT-48220 Recombivax HB Injection Suspension 5 MCG/0.5ML 08:37:50 CLINIC CHARGE NURSE CPT-75348 Immunization Single Admin 08:37:50 CLINIC CHARGE NURSE CPT-J3420 Vitamin B12 1000mcg (Cyanocobalamin) 08:32:16 CLINIC CHARGE NURSE 03/11 CPT-10058 Abx/Therapy Injection 08:32:16 CLINIC CHARGE NURSE CPT-16668 Chest 2V Frontal and Lat 11:46:38 CLINIC CHARGE NURSE CPT-64636 Venipuncture Draw Fee 09:12:45 CLINIC CHARGE NURSE CPT-J3420 Vitamin B12 1000mcg (Cyanocobalamin) 08:50:15 CLINIC CHARGE NURSE 02/08 CPT-20899 Abx/Therapy Injection 08:50:15 CLINIC CHARGE NURSE CPT-Cryo Cryotherapy 10:19:35 CLINIC CHARGE NURSE CPT-000 Give Appropriate Flu Vaccine 09:22:16 CDT CPT-J3420 Vitamin B12 1000mcg (Cyanocobalamin) 19:08:57 CDT 01/11 CPT-68639 Abx/Therapy Injection 19:08:57 CDT CPT-J3420 Vitamin B12 1000mcg (Cyanocobalamin) 08:19:08 CDT 12/11 CPT-46498 Abx/Therapy Injection 08:19:08 CDT CPT-J3420 Vitamin B12 1000mcg (Cyanocobalamin) 14:48:00 CDT 11/09 CPT-82438 Abx/Therapy Injection 14:47:59 CDT CPT-J3420 Vitamin B12 1000mcg (Cyanocobalamin) 08:34:04 CDT 10/09 CPT-70781 Abx/Therapy Injection 08:34:04 CDT CPT-J3420 Vitamin B12 1000mcg (Cyanocobalamin) 09:18:52 CDT 09/11 CPT-22487 Abx/Therapy Injection 09:18:52 CDT CPT-J3420 Vitamin B12 1000mcg (Cyanocobalamin) 08:35:44 CDT 09/04 CPT-95462 Abx/Therapy Injection 08:35:44 CDT CPT-42471 Immunization Single Admin 11:07:16 CDT CPT-90086 Hepatitis B adult IM 11:07:16 CDT CPT-J3420 Vitamin B12 1000mcg (Cyanocobalamin) 11:00:49 CDT 08/28 CPT-J1040 Depo Medrol 80 mg (Methyl Prednisolone Acetate) 11:00: 49 CDT CPT-96663 Abx/Therapy Injection 11:00:49 CDT CPT-J1040 Depo Medrol 80 mg (Methyl Prednisolone Acetate) 09:16: 23 CDT CPT-J3420 Vitamin B12 1000mcg (Cyanocobalamin) 08:27:05 CDT 08/20 CPT-95185 Abx/Therapy Injection 08:27:05 CDT CPT-28551 Recombivax HB Injection Suspension 5 MCG/0.5ML 10:00:41 CDT CPT-91182 Administration single or combination vaccine inc oral 10 :00:41 CDT CPT-77622 Sono transvag pelvis non OB uterus ovaries cervix 16:36: 57 CDT CPT-17093 LS spine comp w obliq 09:50:55 CLINIC CHARGE NURSE CPT-22358 Abd compl w upright 09:50:55 CLINIC CHARGE NURSE CPT-J1100 Decadron 4mg (Dexamethasone) 15:51:24 CLINIC CHARGE NURSE CPT-J1030 Depo Medrol 40 mg (Methyl Prednisolone Acetate) 15:51: 24 CLINIC CHARGE NURSE CPT-53698 Abx/Therapy Injection 15:51:24 CLINIC CHARGE NURSE CPT-J1100 Decadron 4mg (Dexamethasone) 15:26:33 CLINIC CHARGE NURSE CPT-J1030 Depo Medrol 40 mg (Methyl Prednisolone Acetate) 15:26: 33 CLINIC CHARGE NURSE CPT-48967 Sono retroperitoneal complete kidneys and bladder 17:15: 30 CDT CPT-65939 Abd compl w upright 16:09:25 CDT CPT-J1100 Decadron 8mg (Dexamethasone) 17:07:57 CDT CPT-42717 Abx/Therapy Injection 17:07:57 CDT CPT-J1100 Decadron 8mg (Dexamethasone) 16:55:24 CDT CPT-22530 Chest 2V Frontal and Lat 16:32:44 CDT
--- OUTSIDE RECORDS SUMMARY | 2016-11-05 00:42 | XMS REPORT ---
Author Author [facility] Medical Staff Organization [facility] [employer] [facility] Address [address] [place], [place] [id number] Phone [phone] Care Team Providers Care Line Palletizer Name Role Phone DENICE OCHOA MD, PP [phone] Summary purpose TRANSITION OF CARE AUTO GENERATION [...] tests and/or laboratory data RESULTS Radiology Results [id number]:13:00 CT HEAD W/O CONT PACs Image DATE OF EXAM: 2015 [id number] HEAD WO CONTRAST : RADIOLOGY REPORT DATE OF SERVICE: 07/20/15 HISTORY: Head injury, nausea, no loss of consciousness NONCONTRAST CT [id number] HOURS Axial scans were obtained at 5 [...] Signed by: On: DATE OF EXAM: 2015 [id number] HEAD WO CONTRAST : RADIOLOGY REPORT DATE OF SERVICE: 07/20/15 HISTORY: Head injury, nausea, no loss of consciousness NONCONTRAST CT [id number] HOURS Axial scans were obtained at 5 [...] on 2015-07-20 at 15:13:29. Previous status was ID. KNEE XRAY - 3 VIEW PACs Image [...] on 2015-07-20 at 15:13:22. Previous status was ID. History of procedures No procedures recorded for this patient visit. Functional status Functional Status Finding Observation Time Abdomen Appearance obese :28 Abdomen soft :28 Bowel Sounds present :28 Vick no :28 Urination normal :28 Quality sym/unlabored : Cough absent : Secretions no : Airway natural : Chest Tube no :28 Oxygen no : Temp >100.4 no : Temp <96.8 no :28 Chills with rigors no :28 HR > 90bpm yes :28 Respirations > 20 no :28 Systolic <90 no : headache stiff neck no :28 Nursing Note pt dismissed to home, verbalized understanding of all instructions, out ambulatory to friends car, accompanied by nurse :00 Vital signs Type Value Date Respiration Rate 20breaths per minute : Pulse 80beats per minute : Oxygen Saturation 98% :00 BP Systolic 110mmHg :00 BP Diastolic 71mmHg :00 Temperature 97.5F :00 Height 64inches :25 Weight 285LB :25 Social history Type Value Smoking Status CURRENT EVERY DAY SMOKER Treatment Plan No treatment plan text is available for this visit. Hospital discharge instructions Dismissal Condition good Disposition on DC home DC Inst/Educ Give yes Med/Side Effects Rev yes PNE Vac No Flu Vac 2014 Tetanus Vac 2014
--- OUTSIDE RECORDS SUMMARY | 2016-11-05 00:43 | XMS REPORT | Clinical Summary ---
Author Author Admin, E Organization [employer] Address Unknown Phone Unavailable Allergies, Adverse Reactions, [...] genital organs Abscess, skin 682.9 Resolved Vishal uHi MD Cellulitis and abscess of unspecified sites [...] ORAL CHEW 2 daily po PROBIOTIC PRODUCT 35147627729 Active Jillina Frazell ARBORIST CLIMBER Active IBUPROFEN 600 MG TAB 1 po TID PRN IBUPROFEN 24013743965 Active Jillina Frazell ARBORIST CLIMBER Active BACTRIM DS 800-160 MG TAB 1 tab by mouth twice daily TRIMETHOPRIM-SULFAMETHOXAZOLE 05239260009 Active Neeraj Collins MD Active BACTRIM DS 800-160 MG TABS 1 po BID x 7 days SULFAMETHOXAZOLE-TRIMETHOPRIM 76169734992 No Longer Active Vishal Hui MD Active CHANTIX STARTING MONTH EARNEST 0.5 MG X 11 & 1 MG X 42 TABS 0.5mg daily for 3 days , then 0.5mg BID for 4 days, then 1mg BID VARENICLINE TARTRATE 59679660520 No Longer Active TAMARA Gray Active METOPROLOL TARTRATE 50 MG TAB 1 po bid METOPROLOL TARTRATE 07258534135 Active Vishal Hui MD Active TRAZODONE HCL 100 MG TAB take 1 at bedtime TRAZODONE HCL 04422748274 Active Vishal Hui MD Active AMLODIPINE BESYLATE 5 MG TABS 1 tablet by mouth daily AMLODIPINE BESYLATE 29451005670 Active Vishal Hui MD Active VERAPAMIL HCL CR 120 MG TAB CR 1 po bid VERAPAMIL HCL 80861519722 No Longer Active Vishal Hui MD Active METOPROLOL SUCCINATE 50 MG TB24 1 tablet by mouth daily METOPROLOL SUCCINATE 47721710558 No Longer Active Vishal Hui MD Active TRAMADOL HCL 50 MG TABS 1-2 po TID PRN Pain TRAMADOL HCL 78000869750 Active Vishal Hui MD Active SAPHRIS 5 MG SUBL 1 po bid ASENAPINE MALEATE 31830227781 Active Vishal Hui MD Active SAPHRIS 10 MG SUBL 1 tab po bid ASENAPINE MALEATE 29798264900 No Longer Active Vishal Hui MD Active LISINOPRIL 20 MG TABS 1 tab po qd LISINOPRIL 10465651558 No Longer Active Vishal Hui MD Active BENADRYL 25 MG CAP 2 po tid prn anxiety DIPHENHYDRAMINE HCL 52371515933 Active Vishal Hui MD Active LATUDA 80 MG TABS Take one by mouth daily LURASIDONE HCL 50876795104 Active Vishal Hui MD Active LATUDA 20 MG TABS Take one by mouth daily LURASIDONE HCL 41727948240 No Longer Active Vishal Hui MD Active TRAZODONE HCL 50 MG TABS 1/2 tab po qd prn for anxiety TRAZODONE HCL 32272674529 No Longer Active Vishal Hui MD Active PIROXICAM 20 MG CAPS 1 cap po qd PRN Pain PIROXICAM 97404540816 Active Vishal Hui MD Active OMEPRAZOLE 20 MG TBEC 1 po q a.m. 30min prior to first food intake OMEPRAZOLE 21449602222 Active Vishal Hui MD Active RANITIDINE HCL 150 MG CAPS 1 twice a day RANITIDINE HCL 58172574801 Active Vishal Hui MD Active MULTIVITAMINS CAPS Take one by mouth daily MULTIPLE VITAMIN 18018585010 Active Vishal Hui MD Active MELATONIN 3 MG CAPS 2 po q hs MELATONIN 52130705888 Active Vishal Hui MD Active PROZAC 20 MG CAP Take one by mouth daily FLUOXETINE HCL 70761585690 Active Vishal Hui MD Active LINZESS 290 MCG CAPS Take one by mouth daily LINACLOTIDE 32348296779 Active Vishal Hui MD Active SAPHRIS 5 MG SUBL 1 tab po qd ASENAPINE MALEATE 01385667981 No Longer Active Vishal Hui MD Active ZALEPLON 10 MG CAPS 1 cap po every other night ZALEPLON 74608710263 No Longer Active Vishal Hui MD Active LYRICA 50 MG CAPS 1 tab po TID PREGABALIN 74352009032 No Longer Active Vishal Hui MD Active LORATADINE 10 MG TABS 1 tab po qd LORATADINE 12614825529 No Longer Active Vishal Hui MD Active VERAPAMIL HCL ER 180 MG CR-TABS 1 tab po bid VERAPAMIL HCL 27080425085 No Longer Active Vishal Hui MD Active MIRALAX POWD 1 capfull once daily POLYETHYLENE GLYCOL 3350 38595991595 No Longer Active Vishal Hui MD Active PREDNISONE 20 MG TABS 1 tab po qd PREDNISONE 74422811544 No Longer Active Renzo Thornton DO Active LEVOFLOXACIN 500 MG TABS 1 tab po qd LEVOFLOXACIN 13008983035 No Longer Active Renzo Thornton DO Active BUSPIRONE HCL 15 MG TABS 1 tab po TID BUSPIRONE HCL 00961010502 No Longer Active Renzo Thornton DO Active BENZTROPINE MESYLATE 1 MG TABS 1 tab po qd BENZTROPINE MESYLATE 60836414024 No Longer Active Renzo Thornton DO Active ATENOLOL 25 MG TABS 1 tab po qd ATENOLOL 61048012857 No Longer Active Renzo Thornton DO Active ESCITALOPRAM OXALATE 20 MG TABS 1 tab po qd ESCITALOPRAM OXALATE 12177728893 No Longer Active Renzo Thornton DO Active ADVAIR DISKUS 250-50 MCG/DOSE AEPB 1 puff BID FLUTICASONE-SALMETEROL 94608402450 No Longer Active Renzo Thornton DO Active PREDNISONE 20 MG TAB 2 tabs daily for 3 days, 1 tab daily for 3 days, 1/2 tab daily for 2 days PREDNISONE 18307737732 No Longer Active Vishal Hui MD Active CEFDINIR 300 MG CAPS by mouth twice a day CEFDINIR 16338676990 No Longer Active Vishal Hui MD Active LANSOPRAZOLE 30 MG CPDR 1 cap po qd LANSOPRAZOLE 83311014660 No Longer Active Vishal Hui MD Active TOPAMAX 25 MG TABS 1 tab po bid TOPIRAMATE 31276659696 Active Vishal Hui MD Active MINIPRESS 2 MG CAPS 1 cap po at night PRAZOSIN HCL 06781228601 Active Vishal Hui MD Active BACLOFEN 20 MG TABS 1 tab po tid BACLOFEN 53301684879 Active Vishal Hui MD Active ADVAIR DISKUS 250-50 MCG/DOSE AEPB 1 puff BID ADVAIR DISKUS 250-50 MCG/DOSE AEPB FLUTICASONE-SALMETEROL Inactive ESCITALOPRAM OXALATE 20 MG TABS 1 tab po qd ESCITALOPRAM OXALATE 20 MG TABS 604492 ESCITALOPRAM OXALATE Inactive ATENOLOL 25 MG TABS 1 tab po qd ATENOLOL 25 MG TABS 986783 ATENOLOL Inactive BENZTROPINE MESYLATE 1 MG TABS 1 tab po qd BENZTROPINE MESYLATE 1 MG TABS 052933 BENZTROPINE MESYLATE Inactive BUSPIRONE HCL 15 MG TABS 1 tab po TID BUSPIRONE HCL 15 MG TABS 221716 BUSPIRONE HCL Inactive LEVOFLOXACIN 500 MG TABS 1 tab po qd LEVOFLOXACIN 500 MG TABS 149427 LEVOFLOXACIN Inactive PREDNISONE 20 MG TABS 1 tab po qd PREDNISONE 20 MG TABS 411151 PREDNISONE Inactive MIRALAX POWD 1 capfull once daily MIRALAX POWD 973894 POLYETHYLENE GLYCOL 3350 Inactive VERAPAMIL HCL ER 180 MG CR-TABS 1 tab po bid VERAPAMIL HCL ER 180 MG CR-TABS VERAPAMIL HCL Inactive LORATADINE 10 MG TABS 1 tab po qd LORATADINE 10 MG TABS 863997 LORATADINE Inactive LYRICA 50 MG CAPS 1 tab po TID LYRICA 50 MG CAPS PREGABALIN Inactive ZALEPLON 10 MG CAPS 1 cap po every other night ZALEPLON 10 MG CAPS 308574 ZALEPLON Inactive SAPHRIS 5 MG SUBL 1 tab po qd SAPHRIS 5 MG SUBL ASENAPINE MALEATE Inactive TRAZODONE HCL 50 MG TABS 1/2 tab po qd prn for anxiety TRAZODONE HCL 50 MG TABS 819455 TRAZODONE HCL Inactive LATUDA 20 MG TABS Take one by mouth daily LATUDA 20 MG TABS LURASIDONE HCL Inactive LISINOPRIL 20 MG TABS 1 tab po qd LISINOPRIL 20 MG TABS 255605 LISINOPRIL Inactive SAPHRIS 10 MG SUBL 1 [...] twice a day CEFDINIR 300 MG CAPS 255984 CEFDINIR Inactive PREDNISONE 20 MG TAB 2 tabs daily for 3 days, 1 tab daily for 3 days, 1/2 tab daily for 2 days PREDNISONE 20 MG TAB 314874 PREDNISONE Inactive BACTRIM DS 800-160 MG TABS [...] Panel - Chemistry sodium, serum 141 mmol/L 812-991 2823 potassium, serum 4.3 mmol/L 3.5-5.2 chloride, serum [...] Panel - Chemistry sodium, serum 139 mmol/L 507-699 3329/12/31 potassium, serum 4.8 mmol/L 3.5-5.2 chloride, serum 106 mmol/L 98-107 carbon dioxide, venous blood 24.3 mmol/L 21.0-32.0 blood glucose 90 mg/dL 65-110 urea nitrogen, blood 16 mg/dL 7-18 creatinine, serum 1.00 mg/dL 0.60-1.30 alanine aminotransferase (SGPT), serum 41 U/L 12-78 aspartate aminotransferase (SGOT), serum 17 U/L 15-37 calcium, serum 8.6 mg/dL 8.5-10.1 bilirubin, serum, total 0.30 mg/dL 0.00-1.00 cholesterol, serum 108 mg/dL 203-043 6987/12/31 triglyceride, serum, fasting 120 mg/dL 30-200 HDL [...] Negative Negative Lab Report: UADIP W/MICRO, AUTO, [facility] - Chemistry protein, total urine [...] 5.0-8.5 Encounters Code Encounter Date Provider Facility CPT-69654 Level 3 Est. Patient 14:49:50 CDT Vishal Hui MD [facility] CPT-95343 Level 4 Est. Patient 18:41:46 CDT Neeraj Collins MD [facility] CPT-56916 Level 4 Est. Patient 09:18:38 LIFT OPERATOR Vishal Hui MD [facility] CPT-65356 Level 3 Est. Patient 14:43:55 LIFT OPERATOR Vishal Hui MD [facility] CPT-37266 Level 3 Est. Patient 15:26:33 LIFT OPERATOR Sahara Rodriguez MD PhD [facility] CPT-61510 Level 3 Est. Patient 10:32:14 LIFT OPERATOR Vishal Hui MD [facility] CPT-49308 Level 3 Est. Patient 15:12:52 LIFT OPERATOR Visahl Hui MD [facility] CPT-77055 Level 4 Est. Patient 09:19:27 CDT Vishal Hui MD [facility] CPT-50341 Level 3 Est. Patient 15:53:00 CDT Renzo Thornton [facility] CPT-98205 Level 3 Est. Patient 15:50:30 CDT Renzo Thornton [facility] CPT-18548 Level 3 Est. Patient 16:55:24 CDT Vishal Hui MD [facility] Procedures Code Procedure Name Date Entry Date Standard Description CPT-85725 Sono transvag pelvis non OB uterus ovaries cervix 16:36: 57 CDT CPT-05543 LS spine comp w obliq 09:50:55 LIFT OPERATOR CPT-11336 Abd compl w upright 09:50:55 LIFT OPERATOR CPT-J1100 Decadron 4mg (Dexamethasone) 15:51:24 LIFT OPERATOR CPT-J1030 Depo Medrol 40 mg (Methyl Prednisolone Acetate) 15:51: 24 LIFT OPERATOR CPT-03096 Abx/Therapy Injection 15:51:24 LIFT OPERATOR CPT-J1100 Decadron 4mg (Dexamethasone) 15:26:33 LIFT OPERATOR CPT-J1030 Depo Medrol 40 mg (Methyl Prednisolone Acetate) 15:26: 33 LIFT OPERATOR CPT-23778 Sono retroperitoneal complete kidneys and bladder 17:15: 30 CDT CPT-63963 Abd compl w upright 16:09:25 CDT CPT-J1100 Decadron 8mg (Dexamethasone) 17:07:57 CDT CPT-18991 Abx/Therapy Injection 17:07:57 CDT CPT-J1100 Decadron 8mg (Dexamethasone) 16:55:24 CDT CPT-00464 Chest 2V Frontal and Lat 16:32:44 CDT
--- OUTSIDE RECORDS SUMMARY | 2016-11-05 00:46 | XMS REPORT | Clinical Summary ---
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 V72.31 Active Suzan [...] MD Health screening ICD-V70.0 Inactive Suzan Boo FLY RAIL OPERATOR Sinus tachycardia ICD-427.89 Inactive Suzan Boo FLY RAIL OPERATOR Smoker/tobacco use disorder-smoking cessation discussed ICD-305.1 [...] Boo APRN Neck pain ICD-723.1 Inactive Vishal uHi MD Vaginal discharge ICD-623.5 Inactive Vishal Hui [...] MCG ORAL CAPS 1 tab BID LUBIPROSTONE 82015620919 Active Lynda Madl CIVIL ENGINEER'S AIDE Active DIFLUCAN 150 MG TABS 1 by mouth for yeast FLUCONAZOLE 66830931966 Active Suzan Boo APRN Active LACTULOSE 10 GM/15ML ORAL SOLN 30mL oral BID for IBS-C LACTULOSE 99735861802 Active Suzan Boo APRN Active BACTRIM DS 800-160 MG TABS 1 twice a day SULFAMETHOXAZOLE- TRIMETHOPRIM 66851497981 Active Lynda Ninoska BHAKTAN Active MUPIROCIN 2 % OINT apply twice a day MUPIROCIN 49116321683 Active Suzan Boo APRN Active TESSALON PERLES 100 MG CAPS 1 three times a day as needed for cough BENZONATATE 75688797735 No Longer Active Suzan Boo APRN Active BACTRIM DS 800-160 MG TABS 1 twice a day SULFAMETHOXAZOLE-TRIMETHOPRIM 09256534981 No Longer Active Suzan Boo APRN Active DIFLUCAN 150 MG TABS 1 by mouth for yeast FLUCONAZOLE 72286368911 No Longer Active Suzan Boo APRN Active EQ NICOTINE 21 MG/24HR TRANS PT24 Apply daily to stop smoking NICOTINE 48395061520 No Longer Active Suzan Boo APRN Active PREDNISONE 10 MG TABS 2 daily for 5 days then 1 daily for 5 days PREDNISONE 50092699651 No Longer Active Suzan Boo APRN Active LEVAQUIN 500 MG TABS 1 daily for infection LEVOFLOXACIN 79445910412 No Longer Active Suzan Boo APRN Active TROPICAMIDE 0.5 % OPHTH SOLN 1 drop PRN eye spasms TROPICAMIDE 18339045445 No Longer Active Suzan Boo APRN Active PREDNISONE 20 MG TAB 1 tablet daily x 4 days PREDNISONE 43318072845 No Longer Active Suzan Boo APRN Active ACETAMINOPHEN-CODEINE 120-12 MG/5ML SOLN 5 ml by mouth every 4-6 hours if needed for cough ACETAMINOPHEN-CODEINE 89291758566 No Longer Active Suzan Boo APRN Active KEFLEX 500 MG CAP 1 po qid CEPHALEXIN 32916924828 No Longer Active Suzan Boo APRN Active FLOVENT HFA 110 MCG/ACT AERO 2 puffs inhaled b.i.d. FLUTICASONE PROPIONATE HFA 79574654695 Active Renzo Thornton DO Active RISPERDAL 4 MG ORAL TABS 1 tab at bedtime RISPERIDONE 76148877306 Active Samantha Rothman RMA Active ZOFRAN 4 MG TABS 1 po q6hr PRN Nausea ONDANSETRON HCL No Longer Active Suzan Boo APRN Active FLUTICASONE PROPIONATE 50 MCG/ACT SUSP 2 sprays each nostril daily before bed. FLUTICASONE PROPIONATE 06313611697 No Longer Active Suzan Boo APRN Active ASPIRIN 325 MG ORAL TABS 1 tab q.d ASPIRIN 33580881973 No Longer Active Suzan Boo APRN Active HALOPERIDOL 10 MG ORAL TABS 1 tab q.d HALOPERIDOL 36589719915 No Longer Active Suzan Boo APRN Active GUAIFENESIN-CODEINE 100-10 MG/5ML SYRP 5ml every 4 to 6 hours as needed for cough GUAIFENESIN-CODEINE 98286545476 No Longer Active Suzan Boo APRN Active ZITHROMAX Z-EARNEST 250 MG TABS 2 today and then 1 daily for 4 days AZITHROMYCIN 60104913359 No Longer Active Suzan Boo APRN Active CLONAZEPAM 1 MG ORAL TABS 1 twice a day and an additional 1 tablet every other day as needed for pseudoseizures or anxiety CLONAZEPAM 76309564749 Active Suzan Boo APRN Active HYDROCODONE-ACETAMINOPHEN 5-325 MG ORAL TABS 1 tab two times a day HYDROCODONE-ACETAMINOPHEN 56909796663 No Longer Active Ahmet Carbajal MD Active LAMICTAL 100 MG ORAL TABS 1 tab 2 times qd. LAMOTRIGINE 54801478546 Active Ahmet Carbajal MD Active PREDNISONE 20 MG TABS 2 daily for 5 days then 1 daily for 5 days PREDNISONE 64673907870 No Longer Active Ahmet Carbajal MD Active FLUTICASONE PROPIONATE 50 MCG/ACT SUSP 1 to 2 sprays each nostril daily for allergies FLUTICASONE PROPIONATE 53479701266 Active Tila Valenzuela Active BENADRYL 25 MG CAP 4 po at bedtime for insomnia DIPHENHYDRAMINE HCL 48786138285 No Longer Active Ahmet Carbajal MD Active ADVAIR DISKUS 250-50 MCG/DOSE INH AEPB 1 puff twice a day for asthma FLUTICASONE-SALMETEROL 89412014620 No Longer Active Ahmet Carbajal MD Active KLONOPIN 1 MG ORAL TABS 1 tab po TID CLONAZEPAM 79442611170 No Longer Active Ahmet Carbajal MD Active ABILIFY MAINTENA 400 MG IM SUSR 400mg injection every 26 days ARIPIPRAZOLE 66901087000 No Longer Active Ahmet Carbajal MD Active TRAMADOL HCL 50 MG TABS 1/2-1 tab TID PRN TRAMADOL HCL 93231066276 No Longer Active Ahmet Carbajal MD Active BACTRIM DS 800-160 MG TABS 1 twice a day SULFAMETHOXAZOLE- TRIMETHOPRIM 00983636235 No Longer Active Ahmet Carbajal MD Active PROAIR HFA 108 (90 BASE) MCG/ACT AERS 2 puffs four times a day as needed 2015 ALBUTEROL SULFATE 73287452625 Active Honey Hinton FLY RAIL OPERATOR Active MONISTAT 7 COMBO PACK WOODROW 100 & 2 MG-% (9GM) VAG KIT 1 applicatorful per vagina q pm x 7 MICONAZOLE NITRATE 16704487638 No Longer Active Ahmet Carbajal MD Active FLAGYL 500 MG TAB 1 tablet by mouth bid METRONIDAZOLE 63128106578 No Longer Active Ahmet Carbajal MD Active OXYCODONE HCL ER 10 MG ORAL T12A 1/2 tab by mouth every 4 hours prn OXYCODONE HCL 53704963661 No Longer Active Ahmet Carbajal MD Active METHYLPREDNISOLONE 4 MG ORAL TABS po daily METHYLPREDNISOLONE 87309959121 No Longer Active Ahmet Carbajal MD Active LEVOFLOXACIN 500 MG ORAL TABS po daily LEVOFLOXACIN 30751249843 No Longer Active Ahmet Carbajal MD Active VIIBRYD 10 MG ORAL TABS Take 1 tablet once a day VILAZODONE HCL 91169358221 No Longer Active Ahmet Carbajal MD Active TOPAMAX 50 MG ORAL TABS 1 tab twice daily TOPIRAMATE 65179099667 No Longer Active Ahmet Carbajal MD Active DICLOFENAC SODIUM 50 MG TBEC 1 tablet by mouth four times daily PRN Pain 2015 DICLOFENAC SODIUM 06642228930 No Longer Active Ahmet Carbajal MD Active ADZENYS XR-ODT 6.3 MG ORAL TBED 1 tab po daily for ADHD AMPHETAMINE 24178051838 No Longer Active Ahmet Carbajal MD Active CHANTIX 1 MG TABS 1 twice a day to help quit smoking VARENICLINE TARTRATE 79131390780 No Longer Active Dipika Burgos MD Active CHANTIX STARTING MONTH EARNEST 0.5 MG X 11 & 1 MG X 42 TABS take as directed 2015 VARENICLINE TARTRATE 27839304122 No Longer Active Dipika Burgos MD Active TESSALON PERLES 100 MG CAP 1 to 2 tablets by mouth 3 times daily as needed for cough BENZONATATE 94045715158 No Longer Active Luigi Martínez APRN Active IMITREX 50 MG ORAL TABS 0.5 po x 1 PRN Headache. May repeat dose x 1 in 2 hours if needed SUMATRIPTAN SUCCINATE 77882609662 Active Ahmet Carbajal MD Active HYDROCODONE-ACETAMINOPHEN 5-325 MG TABS 1 to 2 four times a day as needed for pain use until can be seen by specialist HYDROCODONE- ACETAMINOPHEN 30825619577 No Longer Active Vishal Hui MD Active PROAIR HFA 108 (90 BASE) MCG/ACT AERS 2 puffs four times a day as needed 2015 ALBUTEROL SULFATE 45432982629 No Longer Active Vishal Hui MD Active PREDNISONE 20 MG TABS 2 daily for 5 days then 1 daily for 5 days PREDNISONE 75819371035 No Longer Active Vishal Hui MD Active ZITHROMAX Z-EARNEST 250 MG TABS 2 today and then 1 daily for 4 days AZITHROMYCIN 14459292793 No Longer Active Vishal Hui MD Active DICLOFENAC POTASSIUM TABS Take 1 tablet twice a day (pt. is not sure of the dose.) DICLOFENAC POTASSIUM TABS 39246112592 No Longer Active Vishal Hui MD Active VERAPAMIL HCL ER 120 MG ORAL CR-TABS Take 1 tablet by mouth twice a day. VERAPAMIL HCL 20860726240 Active Vishal Hui MD Active FLAGYL 500 MG TAB 1 tablet by mouth bid METRONIDAZOLE 30661805529 No Longer Active Vishal Hui MD Active VALIUM 5 MG TAB Take 1-2 tablets daily DIAZEPAM 33855827756 No Longer Active Fabiola Johnson APRN Active METOPROLOL TARTRATE 25 MG ORAL TABS 1/2 tablet twice daily for heart rate and blood pressure METOPROLOL TARTRATE 46349101160 No Longer Active Fabiola Johnson APRN Active MIRALAX ORAL POWD 17GMS DAILY IN WATER POLYETHYLENE GLYCOL 3350 55261176659 Active TAMARA Casey Active MIRALAX PACK 1 po qd PRN Constipation POLYETHYLENE GLYCOL 3350 27073964777 No Longer Active Ahmet Carbajal MD Active MINIPRESS 2 MG CAPS 4 cap po at night PRAZOSIN HCL 12368194803 No Longer Active Ahmet Carbajal MD Active PIROXICAM 20 MG CAPS 1 cap po qd PRN Pain PIROXICAM 34708855352 No Longer Active Amhet Carbajal MD Active TRAMADOL HCL 50 MG TABS 1-2 po TID PRN Pain TRAMADOL HCL 34519125181 No Longer Active Ahmet Carbajal MD Active METOPROLOL TARTRATE 50 MG TAB 1 po bid METOPROLOL TARTRATE 75703167521 No Longer Active Ahmet Carbajal MD Active ABILIFY 15 MG ORAL TABS 1 tab daily ARIPIPRAZOLE 80201809559 No Longer Active Ahmet Carbajal MD Active PROZAC 20 MG ORAL CAPS 1 tab daily FLUOXETINE HCL 42614876347 No Longer Active Ahmet Carbajal MD Active AMBIEN 5 MG ORAL TABS 1 tab at bedtime ZOLPIDEM TARTRATE 13620862072 No Longer Active Ahmet Carbajal MD Active PREDNISONE 20 MG TAB 2 tabs daily for 4 days, 1 tab daily for 4 days, 1/2 tab daily for 4 days PREDNISONE 61706192194 No Longer Active Ahmet Carbajal MD Active KEFLEX 500 MG CAP 1 po TID x 10 days CEPHALEXIN 24008474085 No Longer Active Vishal Hui MD Active SAPHRIS 5 MG SUBL 1 po bid ASENAPINE MALEATE 78238114485 No Longer Active Jillina Frazell FLY RAIL OPERATOR Active LATUDA 80 MG TABS Take one by mouth daily LURASIDONE HCL 80194278197 No Longer Active Jillina Frazell FLY RAIL OPERATOR Active AMLODIPINE BESYLATE 5 MG TABS 1 tablet by mouth daily AMLODIPINE BESYLATE 97964993758 No Longer Active Jillina Frazell FLY RAIL OPERATOR Active AMITRIPTYLINE HCL 100 MG TAB one at hs AMITRIPTYLINE HCL 99480879137 No Longer Active Vishal Hui MD Active TRAZODONE HCL 100 MG TAB take 1 at bedtime TRAZODONE HCL 05760920701 No Longer Active Vishal Hui MD Active VYVANSE 40 MG CAPS 1 daily, LISDEXAMFETAMINE DIMESYLATE 89829411103 No Longer Active Vishal Hui MD Active IBUPROFEN 600 MG TAB 1 po TID PRN IBUPROFEN 53278809118 No Longer Active Vishal Hui MD Active PROZAC 20 MG CAP Take one by mouth daily FLUOXETINE HCL 11058867498 No Longer Active Vishal Hui MD Active BACTRIM DS 800-160 MG TABS 1 pill by mouth twice daily SULFAMETHOXAZOLE-TRIMETHOPRIM 34918066817 No Longer Active Sahara Rodriguez MD PhD Active DIFLUCAN 150 MG TAB 1 tablet by mouth daily FLUCONAZOLE 33456682071 No Longer Active Vishal Hui MD Active TIZANIDINE HCL 4 MG TABS 1 po q6hr PRN Muscle Spasm/Back Pain TIZANIDINE HCL 50766026795 Active Vishal Hui MD Active CLINDAMYCIN HCL 150 MG CAPS 1 four times a day CLINDAMYCIN HCL 30532565043 No Longer Active Neeraj Collins MD Active KEFLEX 500 MG ORAL CAPS 1 cap QID by mouth CEPHALEXIN 06129080426 No Longer Active Neeraj Collins MD Active DIFLUCAN 150 MG TABS 1 pill every other day x 2 doses FLUCONAZOLE 40613881925 No Longer Active Sahara Rodriguez MD PhD Active MELATONIN 3 MG CAPS 2 po q hs MELATONIN 07056952838 No Longer Active Sahara Rodriguez MD PhD Active MULTIVITAMINS CAPS Take one by mouth daily MULTIPLE VITAMIN 30556991558 No Longer Active Sahara Rodriguez MD PhD Active BACTRIM DS 800-160 MG TAB 1 tab by mouth twice daily TRIMETHOPRIM-SULFAMETHOXAZOLE 91910710715 No Longer Active Sahara Rodriguez MD PhD Active [facility] PROBIOTIC ORAL CHEW 2 daily po PROBIOTIC PRODUCT 20179176044 No Longer Active Sahara Rodriguez MD PhD Active BACTRIM DS 800-160 MG TABS 1 po BID x 7 days SULFAMETHOXAZOLE-TRIMETHOPRIM 13099613865 No Longer Active Vishal Hui MD Active CHANTIX STARTING MONTH EARNEST 0.5 MG X 11 & 1 MG X 42 TABS 0.5mg daily for 3 days , then 0.5mg BID for 4 days, then 1mg BID VARENICLINE TARTRATE 45871302449 No Longer Active TAMARA Gray Active VERAPAMIL HCL CR 120 MG TAB CR 1 po bid VERAPAMIL HCL 67560225300 No Longer Active Vishal Hui MD Active METOPROLOL SUCCINATE 50 MG TB24 1 tablet by mouth daily METOPROLOL SUCCINATE 22627856247 No Longer Active Vishal Hui MD Active SAPHRIS 10 MG SUBL 1 tab po bid ASENAPINE MALEATE 75660827306 No Longer Active Vishal Hui MD Active LISINOPRIL 20 MG TABS 1 tab po qd LISINOPRIL 96948963635 No Longer Active Vishal Hui MD Active LATUDA 20 MG TABS Take one by mouth daily LURASIDONE HCL 60949067349 No Longer Active Vishal Hui MD Active TRAZODONE HCL 50 MG TABS 1/2 tab po qd prn for anxiety TRAZODONE HCL 01947043348 No Longer Active Vishal Hui MD Active OMEPRAZOLE 20 MG TBEC 1 po q a.m. 30min prior to first food intake OMEPRAZOLE 67054782187 Active TAMARA Casey Active RANITIDINE HCL 150 MG CAPS 1 twice a day RANITIDINE HCL 54223266816 Active Lynda Xiao LPN Active LINZESS 290 MCG CAPS Take one by mouth daily LINACLOTIDE 43019026803 No Longer Active Vishal Hui MD Active SAPHRIS 5 MG SUBL 1 tab po qd ASENAPINE MALEATE 17088018534 No Longer Active Vishal Hui MD Active ZALEPLON 10 MG CAPS 1 cap po every other night ZALEPLON 73722333327 No Longer Active Vishal Hui MD Active LYRICA 50 MG CAPS 1 tab po TID PREGABALIN 60079613931 No Longer Active Vishal Hui MD Active LORATADINE 10 MG TABS 1 tab po qd LORATADINE 19352985882 No Longer Active Vishal Hui MD Active VERAPAMIL HCL ER 180 MG CR-TABS 1 tab po bid VERAPAMIL HCL 31080965488 No Longer Active Vishal Hui MD Active MIRALAX POWD 1 capfull once daily POLYETHYLENE GLYCOL 3350 44860953569 No Longer Active Vishal Hui MD Active PREDNISONE 20 MG TABS 1 tab po qd PREDNISONE 25808445615 No Longer Active Renzo Thornton DO Active LEVOFLOXACIN 500 MG TABS 1 tab po qd LEVOFLOXACIN 62011379341 No Longer Active Renzo Thornton DO Active BUSPIRONE HCL 15 MG TABS 1 tab po TID BUSPIRONE HCL 29081856505 No Longer Active Renzo Thornton DO Active BENZTROPINE MESYLATE 1 MG TABS 1 tab po qd BENZTROPINE MESYLATE 85004777694 No Longer Active Renzo Thornton DO Active ATENOLOL 25 MG TABS 1 tab po qd ATENOLOL 75747684072 No Longer Active Renzo Thornton DO Active ESCITALOPRAM OXALATE 20 MG TABS 1 tab po qd ESCITALOPRAM OXALATE 07195483756 No Longer Active Rnezo Thornton DO Active ADVAIR DISKUS 250-50 MCG/DOSE AEPB 1 puff BID FLUTICASONE-SALMETEROL 10606088460 No Longer Active Renzo Thornton DO Active PREDNISONE 20 MG TAB 2 tabs daily for 3 days, 1 tab daily for 3 days, 1/2 tab daily for 2 days PREDNISONE 92793142598 No Longer Active Vishal Hui MD Active CEFDINIR 300 MG CAPS by mouth twice a day CEFDINIR 94601303663 No Longer Active Vishal Hui MD Active LANSOPRAZOLE 30 MG CPDR 1 cap po qd LANSOPRAZOLE 07559184575 No Longer Active Vishal Hui MD Active BACLOFEN 20 MG TABS 1 tab po tid BACLOFEN 01241385168 No Longer Active Vishal Hui MD Active ADVAIR DISKUS 250-50 MCG/DOSE AEPB 1 puff BID ADVAIR DISKUS 250-50 MCG/DOSE AEPB FLUTICASONE-SALMETEROL Inactive ESCITALOPRAM OXALATE 20 MG TABS 1 tab po qd ESCITALOPRAM OXALATE 20 MG TABS 671104 ESCITALOPRAM OXALATE Inactive ATENOLOL 25 MG TABS 1 tab po qd ATENOLOL 25 MG TABS 621906 ATENOLOL Inactive BENZTROPINE MESYLATE 1 MG TABS 1 tab po qd BENZTROPINE MESYLATE 1 MG TABS 791863 BENZTROPINE MESYLATE Inactive BUSPIRONE HCL 15 MG TABS 1 tab po TID BUSPIRONE HCL 15 MG TABS 678324 BUSPIRONE HCL Inactive LEVOFLOXACIN 500 MG TABS 1 tab po qd LEVOFLOXACIN 500 MG TABS 539693 LEVOFLOXACIN Inactive PREDNISONE 20 MG TABS 1 tab po qd PREDNISONE 20 MG TABS 816780 PREDNISONE Inactive MIRALAX POWD 1 capfull once daily MIRALAX POWD 318852 POLYETHYLENE GLYCOL 3350 Inactive VERAPAMIL HCL ER 180 MG CR-TABS 1 tab po bid VERAPAMIL HCL ER 180 MG CR-TABS VERAPAMIL HCL Inactive LORATADINE 10 MG TABS 1 tab po qd LORATADINE 10 MG TABS 534081 LORATADINE Inactive LYRICA 50 MG CAPS 1 tab po TID LYRICA 50 MG CAPS PREGABALIN Inactive ZALEPLON 10 MG CAPS 1 cap po every other night ZALEPLON 10 MG CAPS 251793 ZALEPLON Inactive SAPHRIS 5 MG SUBL 1 tab po qd SAPHRIS 5 MG SUBL ASENAPINE MALEATE Inactive TRAZODONE HCL 50 MG TABS 1/2 tab po qd prn for anxiety TRAZODONE HCL 50 MG TABS 394500 TRAZODONE HCL Inactive LATUDA 20 MG TABS Take one by mouth daily LATUDA 20 MG TABS LURASIDONE HCL Inactive LISINOPRIL 20 MG TABS 1 tab po qd LISINOPRIL 20 MG TABS 744723 LISINOPRIL Inactive SAPHRIS 10 MG SUBL 1 [...] twice daily BACTRIM DS 800-160 MG TAB 274201 TRIMETHOPRIM-SULFAMETHOXAZOLE Inactive MULTIVITAMINS CAPS Take one by mouth daily MULTIVITAMINS CAPS MULTIPLE VITAMIN Inactive MELATONIN 3 MG CAPS 2 po q hs MELATONIN 3 MG CAPS 445684 MELATONIN Inactive KEFLEX 500 MG ORAL CAPS 1 cap QID by mouth KEFLEX 500 MG ORAL CAPS 734612 CEPHALEXIN Inactive CLINDAMYCIN HCL 150 MG CAPS 1 four times a day CLINDAMYCIN HCL 150 MG CAPS 884337 CLINDAMYCIN HCL Inactive DIFLUCAN 150 MG TAB 1 tablet by mouth daily DIFLUCAN 150 MG TAB 125444 FLUCONAZOLE Inactive PROZAC 20 MG CAP Take one by mouth daily PROZAC 20 MG CAP 224459 FLUOXETINE HCL Inactive IBUPROFEN 600 MG TAB 1 po TID PRN IBUPROFEN 600 MG TAB 643350 IBUPROFEN Inactive VYVANSE 40 MG CAPS 1 daily, VYVANSE 40 MG CAPS LISDEXAMFETAMINE DIMESYLATE Inactive TRAZODONE HCL 100 MG TAB take 1 at bedtime TRAZODONE HCL 100 MG TAB 505714 TRAZODONE HCL Inactive AMITRIPTYLINE HCL 100 MG TAB one at hs AMITRIPTYLINE HCL 100 MG TAB 747053 AMITRIPTYLINE HCL Inactive AMLODIPINE BESYLATE 5 MG TABS 1 tablet by mouth daily AMLODIPINE BESYLATE 5 MG TABS 850664 AMLODIPINE BESYLATE Inactive LATUDA 80 MG TABS Take one by mouth daily LATUDA 80 MG TABS LURASIDONE HCL Inactive SAPHRIS 5 MG SUBL 1 po bid SAPHRIS 5 MG SUBL ASENAPINE MALEATE Inactive PREDNISONE 20 MG TAB 2 tabs daily for 4 days, 1 tab daily for 4 days, 1/2 tab daily for 4 days PREDNISONE 20 MG TAB 567428 PREDNISONE Inactive AMBIEN 5 MG ORAL TABS 1 tab at bedtime AMBIEN 5 MG ORAL TABS 740839 ZOLPIDEM TARTRATE Inactive PROZAC 20 MG ORAL CAPS 1 tab daily PROZAC 20 MG ORAL CAPS 216916 FLUOXETINE HCL Inactive ABILIFY 15 MG ORAL TABS 1 tab daily ABILIFY 15 MG ORAL TABS 519421 ARIPIPRAZOLE Inactive METOPROLOL TARTRATE 50 MG TAB 1 po bid METOPROLOL TARTRATE 50 MG TAB 825187 METOPROLOL TARTRATE Inactive TRAMADOL HCL 50 MG TABS 1-2 po TID PRN Pain TRAMADOL HCL 50 MG TABS 917710 TRAMADOL HCL Inactive PIROXICAM 20 MG CAPS 1 cap po qd PRN Pain PIROXICAM 20 MG CAPS 375866 PIROXICAM Inactive MINIPRESS 2 MG CAPS 4 cap po at night MINIPRESS 2 MG CAPS 604065 PRAZOSIN HCL Inactive MIRALAX PACK 1 po qd PRN Constipation MIRALAX PACK 116402 POLYETHYLENE GLYCOL 3350 Inactive METOPROLOL TARTRATE 25 MG ORAL TABS 1/2 tablet twice daily for heart rate and blood pressure METOPROLOL TARTRATE 25 MG ORAL TABS 254912 METOPROLOL TARTRATE Inactive VALIUM 5 MG TAB Take 1-2 tablets daily VALIUM 5 MG TAB 529746 DIAZEPAM Inactive FLAGYL 500 MG TAB 1 tablet by mouth bid FLAGYL 500 MG TAB 714208 METRONIDAZOLE Inactive DICLOFENAC POTASSIUM TABS Take 1 tablet twice a day (pt. is not sure of the dose.) DICLOFENAC POTASSIUM TABS DICLOFENAC POTASSIUM TABS Inactive ZITHROMAX Z-EARNEST 250 MG TABS 2 today and then 1 daily for 4 days ZITHROMAX Z-EARNEST 250 MG TABS 8761052 AZITHROMYCIN Inactive PREDNISONE 20 MG TABS 2 daily for 5 days then 1 daily for 5 days PREDNISONE 20 MG TABS 813552 PREDNISONE Inactive PROAIR HFA 108 (90 BASE) MCG/ACT AERS 2 puffs four times a day as needed 2015 PROAIR HFA 108 (90 BASE) MCG/ACT AERS ALBUTEROL SULFATE Inactive HYDROCODONE-ACETAMINOPHEN 5-325 MG TABS 1 to 2 four times a day as needed for pain use until can be seen by specialist HYDROCODONE- ACETAMINOPHEN 5-325 MG TABS 560853 HYDROCODONE-ACETAMINOPHEN Inactive TESSALON PERLES 100 MG CAP 1 to 2 tablets by mouth 3 times daily as needed for cough TESSALON PERLES 100 MG CAP 563778 BENZONATATE Inactive CHANTIX STARTING MONTH EARNEST 0.5 [...] Pain 2015 DICLOFENAC SODIUM 50 MG TBEC 916254 DICLOFENAC SODIUM Inactive TOPAMAX 50 MG ORAL TABS 1 tab twice daily TOPAMAX 50 MG ORAL TABS 277119 TOPIRAMATE Inactive VIIBRYD 10 MG ORAL TABS Take 1 tablet once a day VIIBRYD 10 MG ORAL TABS VILAZODONE HCL Inactive LEVOFLOXACIN 500 MG ORAL TABS po daily LEVOFLOXACIN 500 MG ORAL TABS 203559 LEVOFLOXACIN Inactive METHYLPREDNISOLONE 4 MG ORAL TABS po daily METHYLPREDNISOLONE 4 MG ORAL TABS 018367 METHYLPREDNISOLONE Inactive OXYCODONE HCL ER 10 MG ORAL T12A 1/2 tab by mouth every 4 hours prn OXYCODONE HCL ER 10 MG ORAL T12A OXYCODONE HCL Inactive FLAGYL 500 MG TAB 1 tablet by mouth bid FLAGYL 500 MG TAB 724528 METRONIDAZOLE Inactive MONISTAT 7 COMBO PACK WOODROW 100 & 2 MG-% (9GM) VAG KIT 1 applicatorful per vagina q pm x 7 MONISTAT 7 COMBO PACK WOODROW 100 & 2 MG-% (9GM) VAG KIT MICONAZOLE NITRATE Inactive BACTRIM DS 800-160 MG TABS 1 twice a day BACTRIM DS 800-160 MG TABS 020890 SULFAMETHOXAZOLE-TRIMETHOPRIM Inactive TRAMADOL HCL 50 MG TABS 1/2-1 tab TID PRN TRAMADOL HCL 50 MG TABS 201350 TRAMADOL HCL Inactive ABILIFY MAINTENA 400 MG IM SUSR 400mg injection every 26 days ABILIFY MAINTENA 400 MG IM SUSR ARIPIPRAZOLE Inactive KLONOPIN 1 MG ORAL TABS 1 tab po TID KLONOPIN 1 MG ORAL TABS 548088 CLONAZEPAM Inactive ADVAIR DISKUS 250-50 MCG/DOSE INH AEPB 1 puff twice a day for asthma ADVAIR DISKUS 250-50 MCG/DOSE INH AEPB FLUTICASONE- SALMETEROL Inactive BENADRYL 25 MG CAP 4 po at bedtime for insomnia BENADRYL 25 MG CAP DIPHENHYDRAMINE HCL Inactive PREDNISONE 20 MG TABS 2 daily for 5 days then 1 daily for 5 days PREDNISONE 20 MG TABS 054469 PREDNISONE Inactive HYDROCODONE-ACETAMINOPHEN 5-325 MG ORAL TABS 1 tab two times a day HYDROCODONE-ACETAMINOPHEN 5-325 MG ORAL TABS 066966 HYDROCODONE-ACETAMINOPHEN Inactive ZITHROMAX Z-EARNEST 250 MG TABS 2 today and then 1 daily for 4 days ZITHROMAX Z-EARNEST 250 MG TABS 8117619 AZITHROMYCIN Inactive GUAIFENESIN-CODEINE 100-10 MG/5ML SYRP 5ml every 4 to 6 hours as needed for cough GUAIFENESIN-CODEINE 100-10 MG/5ML SYRP 224390 GUAIFENESIN-CODEINE Inactive HALOPERIDOL 10 MG ORAL TABS 1 tab q.d HALOPERIDOL 10 MG ORAL TABS 857006 HALOPERIDOL Inactive ASPIRIN 325 MG ORAL TABS 1 tab q.d ASPIRIN 325 MG ORAL TABS 562521 ASPIRIN Inactive FLUTICASONE PROPIONATE 50 MCG/ACT SUSP 2 sprays each nostril daily before bed. FLUTICASONE PROPIONATE 50 MCG/ACT SUSP 0562759 FLUTICASONE PROPIONATE Inactive ZOFRAN 4 MG TABS 1 po q6hr PRN Nausea ZOFRAN 4 MG TABS 417170 ONDANSETRON HCL Inactive KEFLEX 500 MG CAP 1 po qid KEFLEX 500 MG CAP 460679 CEPHALEXIN Inactive ACETAMINOPHEN-CODEINE 120-12 MG/5ML SOLN 5 ml by mouth every 4-6 hours if needed for cough ACETAMINOPHEN-CODEINE 120-12 MG/5ML SOLN 992088 ACETAMINOPHEN-CODEINE Inactive PREDNISONE 20 MG TAB 1 tablet daily x 4 days PREDNISONE 20 MG TAB 113367 PREDNISONE Inactive TROPICAMIDE 0.5 % OPHTH SOLN 1 drop PRN eye spasms TROPICAMIDE 0.5 % OPHTH SOLN 950720 TROPICAMIDE Inactive LEVAQUIN 500 MG TABS 1 daily for infection LEVAQUIN 500 MG TABS 234155 LEVOFLOXACIN Inactive PREDNISONE 10 MG TABS 2 daily for 5 days then 1 daily for 5 days PREDNISONE 10 MG TABS 159235 PREDNISONE Inactive EQ NICOTINE 21 MG/24HR TRANS [...] for 2 days PREDNISONE 20 MG TAB 079411 PREDNISONE Inactive BACTRIM DS 800-160 MG TABS [...] x 10 days KEFLEX 500 MG CAP 574251 CEPHALEXIN Inactive Advance Directives Directive Description Start [...] % 11.0-15.0 platelet count 443 THOUSAND/UL 10*3/mm3 970-504 5267/03/01 mean platelet volume 8.2 fL 7.5-12.5 leukocyte [...] % 11.0-15.0 platelet count 349 THOUSAND/UL 10*3/mm3 022-335 9225/04/12 mean platelet volume 8.4 fL 7.5-12.5 Lab [...] 369 10^3/MM^3 10*3/mm3 142-424 Lab Report: Chlamydia/GC APTIMA/[id number] - Lab chlamydia DNA probe NOT DETECTED NOT DETECTED Lab Report: Chlamydia/[id number] - Microbiology Neisseria gonorrhoeae DNA probe NOT DETECTED NOT DETECTED Lab Report: Chlamydia/[id number]/[id number], Urinalysis, Complete, with Reflex ... - Lab chlamydia DNA probe NOT DETECTED NOT DETECTED Lab Report: Chlamydia/[id number]/[id number], Urinalysis, Complete, with Reflex ... - Microbiology Neisseria gonorrhoeae DNA probe NOT DETECTED NOT DETECTED Lab Report: Chlamydia/[facility]TIM[facility]/[id number], Urinalysis, Complete, with Reflex ... - Urinalysis microalbumin/total urine volume 2 mg/L Units converted. See lab report for original value. microalbumin/creatinine ratio, urine 9 MCG/MG CREAT mg/L <30 Lab Report: Comp. Metabolic Panel - Chemistry sodium, serum 140 mmol/L [phone]/08/08 carbon dioxide, venous blood 33.7 mmol/L 21.0-32.0 [...] urine Clear Clear urine color Yellow Colorless;Lightyellow;Straw;Yellow Office Visit: Consult for Painful Lipoma - Basic LDL target level 100 mg/dL Office Visit: Consult for Painful Lipoma - Chemistry cholesterol, target level 200 mg/dL triglyceride, target level 200 mg/dL HDL cholesterol, serum, target level 35 mg/dL Encounters Code Encounter Date Provider Facility CPT-52979 Level 4 Est. Patient 10:49:34 CDT [facility] CPT-58319 Level 3 Est. Patient 10:00:25 [facility] [place] [facility] Level 3 Est. Patient 10:29:30 [facility] [place] [facility] Level 3 Est. Patient 11:04:38 CDT Renzo Thornton [facility] CPT-21898 Level 3 Est. Patient 11:15:58 [employer] Renzo Thornton [facility] CPT-97959 Level 3 Est. Patient 15:28:23 [employer] CHA[employer] [facility] CPT-44136 Level 4 Est. Patient 10:20:54 [employer] [facility] CPT-04903 Level 3 Est. Patient 11:47:37 [employer] Ahmet Carbajal MD [facility] CPT-85165 Level 3 Est. Patient 10:40:11 [employer] Ahmet Carbajal MD [facility] CPT-40805 Level 3 Est. Patient 15:07:06 [employer] Neeraj Collins MD [facility] CPT-65499 Level 4 Est. Patient 14:45:00 [employer] Ahmet Carbajal MD [facility] CPT-46887 Level 3 Est. Patient 13:59:59 CDT [facility] CPT-32942 Level 3 Est. Patient 18:18:53 CDT Neeraj Collins MD [facility] CPT-68093 Level 3 Est. Patient 15:50:44 CDT Vishal Hui MD [facility] CPT-91027 Level 3 Est. Patient 11:36:17 CDT Ahmet Carbajal MD [facility] CPT-81612 Level 3 Est. Patient 13:29:16 CDT Vishal Hui MD [facility] CPT-61854 Level 3 Est. Patient 14:27:52 CDT Neeraj Collins MD [facility] CPT-79103 Level 3 Est. Patient 08:56:03 CDT [facility] CPT-33609 Level 4 Est. Patient 12:11:48 CDT [facility] CPT-21442 Level 3 New Patient 16:53:37 CDT Albert Caldera MD [facility] CPT-18900 Level 3 Est. Patient 11:25:49 CDT Renzo Thornton DO [facility] CPT-46319 Level 3 Est. Patient 15:22:01 CDT Ahmet Carbajal MD [facility] CPT-28530 Level 4 Est. Patient 09:00:51 [employer] Vishal Hui MD [facility] CPT-56590 Level 3 Est. Patient 11:37:33 [employer] CHAIR Vishal Hui MD [facility] CPT-48788 Level 3 Est. Patient 08:41:09 [employer] CHAIR Vishal Hui MD [facility] CPT-16767 Level 4 Est. Patient 10:19:35 [employer] CHAIR Vishal Hui MD [facility] CPT-50572 Level 3 Est. Patient 13:35:45 CDT Vishal Hui MD [facility] CPT-24651 Level 4 Est. Patient 10:08:37 CDT Vishal Hui MD [facility] CPT-43730 Level 3 Est. Patient 11:22:10 CDT Vishal Hui MD [facility] CPT-36283 Level 3 Est. Patient 11:03:32 CDT Sahara Rodriguez MD [facility]-30590 Level 3 Est. Patient 09:41:35 CDT Vishal Hui MD [facility] CPT-71266 Level 3 Est. Patient 12:00:41 CDT Neeraj Collins MD [facility] CPT-70685 Level 3 Est. Patient 09:16:24 CDT Vishal Hui MD [facility] CPT-37796 Level 4 Est. Patient 13:59:09 CDT Neeraj Collins MD [facility]-99195 Level 3 Est. Patient 15:19:43 CDT Renzo Thornton DO [facility] CPT-78159 Level 3 Est. Patient 18:10:26 CDT Sahara Rodriguez MD [facility]-69179 Level 3 Est. Patient 14:49:50 CDT Vishal Hui MD [facility] CPT-49999 Level 4 Est. Patient 18:41:46 CDT Neeraj Collins MD [facility]-39612 Level 4 Est. Patient 09:18:38 [employer] CHAIR Vishal Hui MD [facility] CPT-93579 Level 3 Est. Patient 14:43:55 [employer] CHAIR Vishal Hui MD [facility] CPT-84993 Level 3 Est. Patient 15:26:33 [employer] CHAIR Sahara Rodriguez MD [facility]-18756 Level 3 Est. Patient 10:32:14 [employer] CHAIR Vishal Hui MD [facility]-37143 Level 3 Est. Patient 15:12:52 [employer] CHAIR Vishal Hui MD [facility] CPT-70330 Level 4 Est. Patient 09:19:27 CDT Vishal Hui MD [facility] CPT-18140 Level 3 Est. Patient 15:53:00 CDT [facility] CPT-08967 Level 3 Est. Patient 15:50:30 CDT [facility] CPT-91975 Level 3 Est. Patient 16:55:24 CDT Vishal Hui MD [facility] Procedures Code Procedure Name Date Entry Date Standard Description CPT-99798 Venipuncture Draw Fee 08:41:12 CDT CPT-78203 Abd compl w upright - XRAY USE ONLY 10:27:59 CDT 06/28 CPT-96359 Smoking Cessation counseling 11:15:58 [employer] CHAIR CPT-G0439 [facility] Annual Wellness Exam 09:30:58 [employer] CHAIR CPT-20204 TSH - LAB USE ONLY 08:50:26 [employer] CHAIR CPT-91391 CBC - LAB USE ONLY 08:50:26 [employer] CHAIR CPT-26106 Venipuncture Draw Fee 08:50:26 [employer] CHAIR CPT-15050 Abx/Therapy Injection 17:34:30 [employer] CHAIR CPT-87350 Nexplanon Removal with Reinsertion 14:09:32 CDT CPT-J7307 Nexplanon (Implant) 14:09:32 CDT CPT-OV Office Visit 14:09:32 CDT CPT-58193 UA w micro - LAB USE ONLY 16:21:13 CDT CPT-28663 Wet Mount - LAB USE ONLY 16:21:13 CDT CPT-82703 First Vx - Ix admin for Medicare patients 14:37:47 CDT CPT-01811 Fluzone Preservative Free Intramuscular Suspension 14:37 :47 CDT CPT-01515 Abx/Therapy Injection 13:54:22 CDT CPT-45710 Abx/Therapy Injection 08:47:09 CDT CPT-48271 Abx/Therapy Injection 13:29:56 CDT CPT-73690 Abx/Therapy Injection 08:36:16 CDT CPT-18056 Wet Mount - LAB USE ONLY 17:44:58 CDT CPT-57809 UA w micro - LAB USE ONLY 17:44:58 CDT CPT-21816 CMP - LAB USE ONLY 17:44:58 CDT CPT-93163 Venipuncture Draw Fee 17:44:58 CDT CPT-66584 Cervical Min 4V - XRAY USE ONLY 09:01:40 CDT CPT-00426 Chest 2V Frontal and Lat - XRAY USE ONLY 11:06:31 CDT CPT-36638 EKG Trac and Interp - XRAY USE ONLY 11:31:43 CDT 08/26 CPT-J3420 Vitamin B12 1000mcg (Cyanocobalamin) 08:10:26 [employer] CHAIR 04/12 CPT-69976 Abx/Therapy Injection 08:10:26 [employer] CHAIR CPT-G0438 Initial Annual Wellness Exam 19:01:01 [employer] CHAIR CPT-J3420 Vitamin B12 1000mcg (Cyanocobalamin) 16:57:46 CDT 08/14 CPT-30146 Recombivax HB Injection Suspension 5 MCG/0.5ML 08:37:50 F[employer] CHAIR CPT-99985 Immunization Single Admin 08:37:50 FINE [employer] CHAIR CPT-J3420 Vitamin B12 1000mcg (Cyanocobalamin) 08:32:16 FINE [employer] CHAIR 03/11 CPT-15652 Abx/Therapy Injection 08:32:16 FINE [employer]S CHAIR CPT-86116 Chest 2V Frontal and Lat 11:46:38 FINE [employer]S CHAIR CPT-20260 Venipuncture Draw Fee 09:12:45 FINE [employer] CHAIR CPT-J3420 Vitamin B12 1000mcg (Cyanocobalamin) 08:50:15 F[employer] CHAIR 02/08 CPT-81409 Abx/Therapy Injection 08:50:15 FINE [employer] CHAIR CPT-Cryo Cryotherapy 10:19:35 [employer] CHAIR CPT-000 Give Appropriate Flu Vaccine 09:22:16 CDT CPT-J3420 Vitamin B12 1000mcg (Cyanocobalamin) 19:08:57 CDT 01/11 CPT-55727 Abx/Therapy Injection 19:08:57 CDT CPT-J3420 Vitamin B12 1000mcg (Cyanocobalamin) 08:19:08 CDT 12/11 CPT-56898 Abx/Therapy Injection 08:19:08 CDT CPT-J3420 Vitamin B12 1000mcg (Cyanocobalamin) 14:48:00 CDT 11/09 CPT-36779 Abx/Therapy Injection 14:47:59 CDT CPT-J3420 Vitamin B12 1000mcg (Cyanocobalamin) 08:34:04 CDT 10/09 CPT-13919 Abx/Therapy Injection 08:34:04 CDT CPT-J3420 Vitamin B12 1000mcg (Cyanocobalamin) 09:18:52 CDT 09/11 CPT-19217 Abx/Therapy Injection 09:18:52 CDT CPT-J3420 Vitamin B12 1000mcg (Cyanocobalamin) 08:35:44 CDT 09/04 CPT-04503 Abx/Therapy Injection 08:35:44 CDT CPT-34666 Immunization Single Admin 11:07:16 CDT CPT-10915 Hepatitis B adult IM 11:07:16 CDT CPT-J3420 Vitamin B12 1000mcg (Cyanocobalamin) 11:00:49 CDT 08/28 CPT-J1040 Depo Medrol 80 mg (Methyl Prednisolone Acetate) 11:00: 49 CDT CPT-15231 Abx/Therapy Injection 11:00:49 CDT CPT-J1040 Depo Medrol 80 mg (Methyl Prednisolone Acetate) 09:16: 23 CDT CPT-J3420 Vitamin B12 1000mcg (Cyanocobalamin) 08:27:05 CDT 08/20 CPT-29235 Abx/Therapy Injection 08:27:05 CDT CPT-79266 Recombivax HB Injection Suspension 5 MCG/0.5ML 10:00:41 CDT CPT-44515 Administration single or combination vaccine inc oral 10 :00:41 CDT CPT-20125 Sono transvag pelvis non OB uterus ovaries cervix 16:36: 57 CDT CPT-44082 LS spine comp w obliq 09:50:55 [employer] CHAIR CPT-68576 Abd compl w upright 09:50:55 F[employer] CHAIR CPT-J1100 Decadron 4mg (Dexamethasone) 15:51:24 FINE [employer]S CHAIR CPT-J1030 Depo Medrol 40 mg (Methyl Prednisolone Acetate) 15:51: 24 FINE [employer]S CHAIR CPT-22673 Abx/Therapy Injection 15:51:24 FINE ARTS CHAIR CPT-J1100 Decadron 4mg (Dexamethasone) 15:26:33 FINE [employer]S CHAIR CPT-J1030 Depo Medrol 40 mg (Methyl Prednisolone Acetate) 15:26: 33 F[employer] CHAIR CPT-52688 Sono retroperitoneal complete kidneys and bladder 17:15: 30 CDT CPT-19307 Abd compl w upright 16:09:25 CDT CPT-J1100 Decadron 8mg (Dexamethasone) 17:07:57 CDT CPT-37783 Abx/Therapy Injection 17:07:57 CDT CPT-J1100 Decadron 8mg (Dexamethasone) 16:55:24 CDT CPT-09107 Chest 2V Frontal and Lat 16:32:44 CDT
--- OUTSIDE RECORDS SUMMARY | 2016-11-05 00:48 | XMS REPORT ---
Author [facility] Organization [facility] Address [address] [place], [place] [id number] Phone [phone] Care Team Providers Care Fiscal Specialist Name Role Phone TINO ABRAMS MD PP [phone] Summary purpose TRANSITION OF CARE AUTO GENERATION [...] and/or laboratory data RESULTS Therapeutic Drug Monitoring [id number]:44:00 Result Normal Range Units Vancomycin Trough 16.5 10-22 ug/ml History of procedures Procedure Code Code Type Description Date Performed Performing Physician J7040 CPT-4 NORMAL SALINE SOLUTION INFUS 10-26-2014 TINO ABRAMS J3370 CPT-4 VANCOMYCIN HCL INJECTION 10-26-2014 TINO ABRAMS 65059 CPT-4 THER/PROPH/DIAG IV INF, INIT 10-26-2014 TINO ABRAMS 77359 CPT-4 THER/PROPH/DIAG IV INF ADDON 10-26-2014 TINO ABRAMS 75488 CPT-4 THER/PROPH/DIAG IV INF, INIT 10-26-2014 TINO ABRAMS 52413 CPT-4 THER/PROPH/DIAG IV INF ADDON 10-26-2014 TINO ABRAMS 96912 CPT-4 ASSAY OF VANCOMYCIN 10-27-2014 TINO ABRAMS J7040 CPT-4 NORMAL SALINE SOLUTION INFUS 10-27-2014 TINO ABRAMS J3370 CPT-4 VANCOMYCIN HCL INJECTION 10-27-2014 TINO ABRAMS 64109 CPT-4 ROUTINE VENIPUNCTURE 10-27-2014 TINO ABRAMS 26308 CPT-4 THER/PROPH/DIAG IV INF, INIT 10-27-2014 TINO ABRAMS 58598 CPT-4 THER/PROPH/DIAG IV INF ADDON 10-27-2014 TINO ABRAMS 09590 CPT-4 THER/PROPH/DIAG IV INF, INIT 10-27-2014 TINO ABRAMS 33806 CPT-4 THER/PROPH/DIAG IV INF ADDON 10-27-2014 TINO [...] :03 IV Site Start Attmpt 1 times [id number] IV Site Festus 20 :40 IV Site [...] : Physical no :11 Hearing no :11 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
--- OUTSIDE RECORDS SUMMARY | 2016-11-05 00:48 | XMS REPORT | Clinical Summary ---
Author Author Admin, QIE Organization [employer] Address Unknown Phone Unavailable Allergies, Adverse Reactions, Alerts Allergy Name Reaction Description Start Date Severity Status Provider AMITRIPTYLINE HCL Mood changes. LDA MA Critical Active Vishal Hui MD FANAPT heart palpitations Critical Active Vsihal Hui MD SEROQUEL Critical Active Vishal Hui [...] specified Headache, atypical 784.0 Active Luigi Martínez VENDOR MANAGER Headache Elevated blood glucose 790.29 Resolved Vishal [...] 1/2 tab daily for 4 days PREDNISONE 99782574396 Active Vishal Hui MD Active IMITREX 50 MG ORAL TABS 1/2 tab every 6 hours prn SUMATRIPTAN SUCCINATE 78880110862 Active Jillina Mauricio WALTERSN Active AMBIEN 5 MG ORAL TABS 1 tab at bedtime ZOLPIDEM TARTRATE 34895064940 Active Jillina Johnl VENDOR MANAGER Active PROZAC 20 MG ORAL CAPS 1 tab daily FLUOXETINE HCL 88596898861 Active Jillina Fradwightl VENDOR MANAGER Active ABILIFY 15 MG ORAL TABS 1 tab daily ARIPIPRAZOLE 33071284162 Active Jillina Frazell VENDOR MANAGER Active MINIPRESS 2 MG CAPS 4 cap po at night PRAZOSIN HCL 66828953354 Active Jillina Frazell VENDOR MANAGER Active TOPAMAX 50 MG ORAL TABS 1 tab twice daily TOPIRAMATE 43249805625 Active Pacollina Fradwightl VENDOR MANAGER Active SAPHRIS 5 MG SUBL 1 po bid ASENAPINE MALEATE 91006860498 No Longer Active Pacollina Mauricio WALTERSN Active LATUDA 80 MG TABS Take one by mouth daily LURASIDONE HCL 55945098928 No Longer Active Jillina Fralebron WALTERSN Active AMLODIPINE BESYLATE 5 MG TABS 1 tablet by mouth daily AMLODIPINE BESYLATE 55148901942 No Longer Active Tataina Mauricio WALTERSN Active AMITRIPTYLINE HCL 100 MG TAB one at hs AMITRIPTYLINE HCL 82379572872 No Longer Active Vishal Hui MD Active TRAZODONE HCL 100 MG TAB take 1 at bedtime TRAZODONE HCL 66618639511 No Longer Active Vishal Hui MD Active VYVANSE 40 MG CAPS 1 daily, LISDEXAMFETAMINE DIMESYLATE 09278394666 No Longer Active Vishal Hui MD Active IBUPROFEN 600 MG TAB 1 po TID PRN IBUPROFEN 37186318678 No Longer Active Vishal Hui MD Active MIRALAX PACK 1 po qd PRN Constipation POLYETHYLENE GLYCOL 3350 97339834667 Active Vishal Hui MD Active PROZAC 20 MG CAP Take one by mouth daily FLUOXETINE HCL 28430525737 No Longer Active Vishal Hui MD Active ZOFRAN 4 MG TABS 1 po q6hr PRN Nausea ONDANSETRON HCL Active Vishal Hui MD Active BACTRIM DS 800-160 MG TABS 1 pill by mouth twice daily SULFAMETHOXAZOLE-TRIMETHOPRIM 44596855758 No Longer Active Sahara Rodriguez MD PhD Active DIFLUCAN 150 MG TAB 1 tablet by mouth daily FLUCONAZOLE 45843532601 No Longer Active Vishal Hui MD Active TIZANIDINE HCL 4 MG TABS 1 po q6hr PRN Muscle Spasm/Back Pain TIZANIDINE HCL 90605094963 Active Luigi Martínez APRN Active CLINDAMYCIN HCL 150 MG CAPS 1 four times a day CLINDAMYCIN HCL 57672274498 No Longer Active Neeraj Collins MD Active KEFLEX 500 MG ORAL CAPS 1 cap QID by mouth CEPHALEXIN 28522913609 No Longer Active Neeraj Collins MD Active DIFLUCAN 150 MG TABS 1 pill every other day x 2 doses FLUCONAZOLE 04067530617 No Longer Active Sahara Rodriguez MD PhD Active MELATONIN 3 MG CAPS 2 po q hs MELATONIN 35511249576 No Longer Active Sahara Rodriguez MD PhD Active MULTIVITAMINS CAPS Take one by mouth daily MULTIPLE VITAMIN 92920330592 No Longer Active Sahara Rodriguez MD PhD Active BACTRIM DS 800-160 MG TAB 1 tab by mouth twice daily TRIMETHOPRIM-SULFAMETHOXAZOLE 34293941807 No Longer Active Sahara Rodriguez MD PhD Active [facility] PROBIOTIC ORAL CHEW 2 daily po PROBIOTIC PRODUCT 83649364519 No Longer Active Sahara Rodriguez MD PhD Active BACTRIM DS 800-160 MG TABS 1 po BID x 7 days SULFAMETHOXAZOLE-TRIMETHOPRIM 77148661571 No Longer Active Vishal Hui MD Active CHANTIX STARTING MONTH EARNEST 0.5 MG X 11 & 1 MG X 42 TABS 0.5mg daily for 3 days , then 0.5mg BID for 4 days, then 1mg BID VARENICLINE TARTRATE 52789653401 No Longer Active TAMARA Gray Active METOPROLOL TARTRATE 50 MG TAB 1 po bid METOPROLOL TARTRATE 19459632863 Active Vishal Hui MD Active VERAPAMIL HCL CR 120 MG TAB CR 1 po bid VERAPAMIL HCL 62109077322 No Longer Active Vishal Hui MD Active METOPROLOL SUCCINATE 50 MG TB24 1 tablet by mouth daily METOPROLOL SUCCINATE 07894698558 No Longer Active Vishal Hui MD Active TRAMADOL HCL 50 MG TABS 1-2 po TID PRN Pain TRAMADOL HCL 06289662250 Active Luigi Martínez VENDOR MANAGER Active SAPHRIS 10 MG SUBL 1 tab po bid ASENAPINE MALEATE 33981427086 No Longer Active Vishal Hui MD Active LISINOPRIL 20 MG TABS 1 tab po qd LISINOPRIL 16855980008 No Longer Active Vishal Hui MD Active BENADRYL 25 MG CAP 2 po tid prn anxiety DIPHENHYDRAMINE HCL 57661351466 Active Vishal Hui MD Active LATUDA 20 MG TABS Take one by mouth daily LURASIDONE HCL 39981831271 No Longer Active Vishal Hui MD Active TRAZODONE HCL 50 MG TABS 1/2 tab po qd prn for anxiety TRAZODONE HCL 85432509394 No Longer Active Vishal Hui MD Active PIROXICAM 20 MG CAPS 1 cap po qd PRN Pain PIROXICAM 21310223088 Active Vishal Hui MD Active OMEPRAZOLE 20 MG TBEC 1 po q a.m. 30min prior to first food intake OMEPRAZOLE 36317435420 Active Vishal Hui MD Active RANITIDINE HCL 150 MG CAPS 1 twice a day RANITIDINE HCL 21448330595 Active Vishal Hui MD Active LINZESS 290 MCG CAPS Take one by mouth daily LINACLOTIDE 85132671547 No Longer Active Vishal Hui MD Active SAPHRIS 5 MG SUBL 1 tab po qd ASENAPINE MALEATE 57473799755 No Longer Active iVshal Hui MD Active ZALEPLON 10 MG CAPS 1 cap po every other night ZALEPLON 48433404368 No Longer Active Vihsal Hui MD Active LYRICA 50 MG CAPS 1 tab po TID PREGABALIN 54747801759 No Longer Active Vishal Hui MD Active LORATADINE 10 MG TABS 1 tab po qd LORATADINE 77480248103 No Longer Active Vishal Hui MD Active VERAPAMIL HCL ER 180 MG CR-TABS 1 tab po bid VERAPAMIL HCL 47604837685 No Longer Active Vishal Hui MD Active MIRALAX POWD 1 capfull once daily POLYETHYLENE GLYCOL 3350 99367336891 No Longer Active Vishal Hui MD Active PREDNISONE 20 MG TABS 1 tab po qd PREDNISONE 85490322964 No Longer Active Renzo Thornton DO Active LEVOFLOXACIN 500 MG TABS 1 tab po qd LEVOFLOXACIN 11966964099 No Longer Active Renzo Thornton DO Active BUSPIRONE HCL 15 MG TABS 1 tab po TID BUSPIRONE HCL 14888015587 No Longer Active Renzo Thornton DO Active BENZTROPINE MESYLATE 1 MG TABS 1 tab po qd BENZTROPINE MESYLATE 65855937744 No Longer Active Renzo Thornton DO Active ATENOLOL 25 MG TABS 1 tab po qd ATENOLOL 57673839589 No Longer Active Renzo Thornton DO Active ESCITALOPRAM OXALATE 20 MG TABS 1 tab po qd ESCITALOPRAM OXALATE 76903650805 No Longer Active Renzo Thornton DO Active ADVAIR DISKUS 250-50 MCG/DOSE AEPB 1 puff BID FLUTICASONE-SALMETEROL 56990203875 No Longer Active Renzo Thornton DO Active PREDNISONE 20 MG TAB 2 tabs daily for 3 days, 1 tab daily for 3 days, 1/2 tab daily for 2 days PREDNISONE 75996907457 No Longer Active Vishal Hui MD Active CEFDINIR 300 MG CAPS by mouth twice a day CEFDINIR 12332423111 No Longer Active Vishal Hui MD Active LANSOPRAZOLE 30 MG CPDR 1 cap po qd LANSOPRAZOLE 86749661351 No Longer Active Vishal Hui MD Active BACLOFEN 20 MG TABS 1 tab po tid BACLOFEN 52638550472 No Longer Active Vishal Hui MD Active ADVAIR DISKUS 250-50 MCG/DOSE AEPB 1 puff BID ADVAIR DISKUS 250-50 MCG/DOSE AEPB FLUTICASONE-SALMETEROL Inactive ESCITALOPRAM OXALATE 20 MG TABS 1 tab po qd ESCITALOPRAM OXALATE 20 MG TABS 158796 ESCITALOPRAM OXALATE Inactive ATENOLOL 25 MG TABS 1 tab po qd ATENOLOL 25 MG TABS 060074 ATENOLOL Inactive BENZTROPINE MESYLATE 1 MG TABS 1 tab po qd BENZTROPINE MESYLATE 1 MG TABS 081986 BENZTROPINE MESYLATE Inactive BUSPIRONE HCL 15 MG TABS 1 tab po TID BUSPIRONE HCL 15 MG TABS 132651 BUSPIRONE HCL Inactive LEVOFLOXACIN 500 MG TABS 1 tab po qd LEVOFLOXACIN 500 MG TABS 782477 LEVOFLOXACIN Inactive PREDNISONE 20 MG TABS 1 tab po qd PREDNISONE 20 MG TABS 715316 PREDNISONE Inactive MIRALAX POWD 1 capfull once daily MIRALAX POWD 452491 POLYETHYLENE GLYCOL 3350 Inactive VERAPAMIL HCL ER 180 MG CR-TABS 1 tab po bid VERAPAMIL HCL ER 180 MG CR-TABS VERAPAMIL HCL Inactive LORATADINE 10 MG TABS 1 tab po qd LORATADINE 10 MG TABS 696439 LORATADINE Inactive LYRICA 50 MG CAPS 1 tab po TID LYRICA 50 MG CAPS PREGABALIN Inactive ZALEPLON 10 MG CAPS 1 cap po every other night ZALEPLON 10 MG CAPS 513608 ZALEPLON Inactive SAPHRIS 5 MG SUBL 1 tab po qd SAPHRIS 5 MG SUBL ASENAPINE MALEATE Inactive TRAZODONE HCL 50 MG TABS 1/2 tab po qd prn for anxiety TRAZODONE HCL 50 MG TABS 334093 TRAZODONE HCL Inactive LATUDA 20 MG TABS Take one by mouth daily LATUDA 20 MG TABS LURASIDONE HCL Inactive LISINOPRIL 20 MG TABS 1 tab po qd LISINOPRIL 20 MG TABS 548091 LISINOPRIL Inactive SAPHRIS 10 MG SUBL 1 [...] twice daily BACTRIM DS 800-160 MG TAB 129125 TRIMETHOPRIM-SULFAMETHOXAZOLE Inactive MULTIVITAMINS CAPS Take one by mouth daily MULTIVITAMINS CAPS MULTIPLE VITAMIN Inactive MELATONIN 3 MG CAPS 2 po q hs MELATONIN 3 MG CAPS 614018 MELATONIN Inactive KEFLEX 500 MG ORAL CAPS 1 cap QID by mouth KEFLEX 500 MG ORAL CAPS 379670 CEPHALEXIN Inactive CLINDAMYCIN HCL 150 MG CAPS 1 four times a day CLINDAMYCIN HCL 150 MG CAPS 405895 CLINDAMYCIN HCL Inactive DIFLUCAN 150 MG TAB 1 tablet by mouth daily DIFLUCAN 150 MG TAB 376053 FLUCONAZOLE Inactive PROZAC 20 MG CAP Take one by mouth daily PROZAC 20 MG CAP 360455 FLUOXETINE HCL Inactive IBUPROFEN 600 MG TAB 1 po TID PRN IBUPROFEN 600 MG TAB 233286 IBUPROFEN Inactive VYVANSE 40 MG CAPS 1 daily, VYVANSE 40 MG CAPS LISDEXAMFETAMINE DIMESYLATE Inactive TRAZODONE HCL 100 MG TAB take 1 at bedtime TRAZODONE HCL 100 MG TAB 977817 TRAZODONE HCL Inactive AMITRIPTYLINE HCL 100 MG TAB one at hs AMITRIPTYLINE HCL 100 MG TAB 445521 AMITRIPTYLINE HCL Inactive AMLODIPINE BESYLATE 5 MG TABS 1 tablet by mouth daily AMLODIPINE BESYLATE 5 MG TABS 649080 AMLODIPINE BESYLATE Inactive LATUDA 80 MG TABS Take one by mouth daily LATUDA 80 MG TABS LURASIDONE HCL Inactive SAPHRIS 5 MG SUBL 1 po bid SAPHRIS 5 MG SUBL ASENAPINE MALEATE Inactive CEFDINIR 300 MG CAPS by mouth twice a day CEFDINIR 300 MG CAPS 758501 CEFDINIR Inactive PREDNISONE 20 MG TAB 2 tabs daily for 3 days, 1 tab daily for 3 days, 1/2 tab daily for 2 days PREDNISONE 20 MG TAB 679113 PREDNISONE Inactive BACTRIM DS 800-160 MG TABS 1 po BID x 7 days BACTRIM DS 800-160 MG TABS 19820521 SULFAMETHOXAZOLE-TRIMETHOPRIM Inactive DIFLUCAN 150 MG TABS 1 pill every other day x 2 doses DIFLUCAN 150 MG TABS 118500 FLUCONAZOLE Inactive BACTRIM DS 800-160 MG TABS [...] % 11.6-14.8 platelet count 394 10^3/MM^3 10*3/mm3 806-442 1572/01/11 leukocyte count, blood 13.8 10^3/MM^3 10*3/mm3 4.6-10.2 [...] Panel - Chemistry sodium, serum 139 mmol/L 000-894 5149/12/03 carbon dioxide, venous blood 28.5 mmol/L 21.0-32.0 [...] 5.5 % 4.3-6.0 cholesterol, serum 159 mg/dL 366-742 1862/12/03 triglyceride, serum, fasting 118 mg/dL 30-200 HDL [...] ... - Chemistry sodium, serum 140 mmol/L 183-136 0202/05/28 potassium, serum 4.2 mmol/L 3.5-5.2 chloride, serum [...] Panel - Chemistry sodium, serum 141 mmol/L 259-498 5173 potassium, serum 4.3 mmol/L 3.5-5.2 chloride, serum 106 mmol/L 98-107 carbon dioxide, venous blood 25.7 mmol/L 21.0-32.0 blood glucose 119 mg/dL 65-110 urea nitrogen, blood 22 mg/dL 7-18 creatinine, serum 0.90 mg/dL 0.60-1.30 alanine aminotransferase (SGPT), serum 28 U/L 12-78 aspartate aminotransferase (SGOT), serum 13 U/L 15-37 calcium, serum 8.5 mg/dL 8.5-10.1 bilirubin, serum, total 0.20 mg/dL 0.00-1.00 sodium, serum 139 mmol/L 270-201 0402/12/22 carbon dioxide, venous blood 26.8 mmol/L 21.0-32.0 potassium, serum 4.2 mmol/L 3.5-5.2 chloride, serum 103 mmol/L 98-107 blood glucose 115 mg/dL 65-110 urea nitrogen, blood 20 mg/dL 7-18 creatinine, serum 0.90 mg/dL 0.55-1.30 alanine aminotransferase (SGPT), serum 38 U/L -78 aspartate aminotransferase (SGOT), serum 19 U/L 15-37 calcium, serum 8.6 mg/dL 8.5-10.1 bilirubin, serum, total 0.30 mg/dL 0.00-1.00 sodium, serum 139 mmol/L 613-544 7568/01/11 carbon dioxide, venous blood 26.6 mmol/L 21.0-32.0 [...] Rate - Chemistry sodium, serum 139 mmol/L 379-308 1190/12/11 carbon dioxide, venous blood 25.4 mmol/L 21.0-32.0 [...] 5.0-8.5 Lab Report: [facility] Chemistry protein, total urine random [...] semiquantitative 7.0 5.0-8.5 Lab Report: Varicella-Zoater Inga IgG,IgM/74302, HEP Be Antibody/556, RUB ... - Serology rubella antibody, serum, IgG 2.88 Encounters Code Encounter Date Provider Facility [facility]-[id number] Level 4 Est. Patient 09:00:51 DEAD MAIL CHECKER Vishal Hui MD [facility]-93735 Level 3 Est. Patient 11:37:33 DEAD MAIL CHECKER Vishal Hui MD [facility] [place]-08962 Level 3 Est. Patient 08:41:09 DEAD MAIL CHECKER Vishal Hui MD [facility]-98324 Level 4 Est. Patient 10:19:35 DEAD MAIL CHECKER Vishal Hui MD [facility]-36953 Level 3 Est. Patient 13:35:45 CDT Vishal Hui MD [facility]-05374 Level 4 Est. Patient 10:08:37 CDT Vishal Hui MD [facility]-75812 Level 3 Est. Patient 11:22:10 CDT Vishal Hui MD [facility]-27780 Level 3 Est. Patient 11:03:32 CDT Sahara Rodriguez MD PhD [facility]53916 Level 3 Est. Patient 09:41:35 CDT Vishal Hui MD [facility]37710 Level 3 Est. Patient 12:00:41 CDT Neeraj Collins MD [facility]93772 Level 3 Est. Patient 09:16:24 CDT Vishal Hui MD [facility]-47355 Level 4 Est. Patient 13:59:09 CDT Neeraj Collins MD [facility] CPT-77345 Level 3 Est. Patient 15:19:43 CDT Renzo Thornton [facility] CPT-63203 Level 3 Est. Patient 18:10:26 CDT Sahara Rodrgiuez MD [facility] CPT-43806 Level 3 Est. Patient 14:49:50 CDT Vishal Hui MD [facility] CPT-09402 Level 4 Est. Patient 18:41:46 CDT Neeraj Collins MD [facility] CPT-09006 Level 4 Est. Patient 09:18:38 DEAD MAIL CHECKER Vishal Hui MD [facility] CPT-44229 Level 3 Est. Patient 14:43:55 DEAD MAIL CHECKER Vishal Hui MD [facility] CPT-30405 Level 3 Est. Patient 15:26:33 DEAD MAIL CHECKER Sahara Rodriguez MD PhD [facility] CPT-77469 Level 3 Est. Patient 10:32:14 DEAD MAIL CHECKER Vishal Hui MD [facility] CPT-92117 Level 3 Est. Patient 15:12:52 DEAD MAIL CHECKER Vishal Hui MD [facility] CPT-16666 Level 4 Est. Patient 09:19:27 CDT Vishal Hui MD [facility] CPT-41858 Level 3 Est. Patient 15:53:00 CDT Renzo Thornton [facility] CPT-77551 Level 3 Est. Patient 15:50:30 CDT Renzo Thornton [facility] CPT-89105 Level 3 Est. Patient 16:55:24 CDT Vishal Hui MD [facility] Procedures Code Procedure Name Date Entry Date Standard Description CPT-J3420 Vitamin B12 1000mcg (Cyanocobalamin) 16:57:46 CDT 08/14 CPT-64468 Recombivax HB Injection Suspension 5 MCG/0.5ML 08:37:50 DEAD MAIL CHECKER CPT-71081 Immunization Single Admin 08:37:50 DEAD MAIL CHECKER CPT-J3420 Vitamin B12 1000mcg (Cyanocobalamin) 08:32:16 DEAD MAIL CHECKER 03/11 CPT-60133 Abx/Therapy Injection 08:32:16 DEAD MAIL CHECKER CPT-64493 Chest 2V Frontal and Lat 11:46:38 DEAD MAIL CHECKER CPT-50025 Venipuncture Draw Fee 09:12:45 DEAD MAIL CHECKER CPT-J3420 Vitamin B12 1000mcg (Cyanocobalamin) 08:50:15 DEAD MAIL CHECKER 02/08 CPT-74135 Abx/Therapy Injection 08:50:15 DEAD MAIL CHECKER CPT-Cryo Cryotherapy 10:19:35 DEAD MAIL CHECKER CPT-000 Give Appropriate Flu Vaccine 09:22:16 CDT CPT-J3420 Vitamin B12 1000mcg (Cyanocobalamin) 19:08:57 CDT 01/11 CPT-61383 Abx/Therapy Injection 19:08:57 CDT CPT-J3420 Vitamin B12 1000mcg (Cyanocobalamin) 08:19:08 CDT 12/11 CPT-97779 Abx/Therapy Injection 08:19:08 CDT CPT-J3420 Vitamin B12 1000mcg (Cyanocobalamin) 14:48:00 CDT 11/09 CPT-78580 Abx/Therapy Injection 14:47:59 CDT CPT-J3420 Vitamin B12 1000mcg (Cyanocobalamin) 08:34:04 CDT 10/09 CPT-53336 Abx/Therapy Injection 08:34:04 CDT CPT-J3420 Vitamin B12 1000mcg (Cyanocobalamin) 09:18:52 CDT 09/11 CPT-78894 Abx/Therapy Injection 09:18:52 CDT CPT-J3420 Vitamin B12 1000mcg (Cyanocobalamin) 08:35:44 CDT 09/04 CPT-26719 Abx/Therapy Injection 08:35:44 CDT CPT-80988 Immunization Single Admin 11:07:16 CDT CPT-11727 Hepatitis B adult IM 11:07:16 CDT CPT-J3420 Vitamin B12 1000mcg (Cyanocobalamin) 11:00:49 CDT 08/28 CPT-J1040 Depo Medrol 80 mg (Methyl Prednisolone Acetate) 11:00: 49 CDT CPT-80311 Abx/Therapy Injection 11:00:49 CDT CPT-J1040 Depo Medrol 80 mg (Methyl Prednisolone Acetate) 09:16: 23 CDT CPT-J3420 Vitamin B12 1000mcg (Cyanocobalamin) 08:27:05 CDT 08/20 CPT-17071 Abx/Therapy Injection 08:27:05 CDT CPT-76648 Recombivax HB Injection Suspension 5 MCG/0.5ML 10:00:41 CDT CPT-31357 Administration single or combination vaccine inc oral 10 :00:41 CDT CPT-21776 Sono transvag pelvis non OB uterus ovaries cervix 16:36: 57 CDT CPT-29036 LS spine comp w obliq 09:50:55 DEAD MAIL CHECKER CPT-21432 Abd compl w upright 09:50:55 DEAD MAIL CHECKER CPT-J1100 Decadron 4mg (Dexamethasone) 15:51:24 DEAD MAIL CHECKER CPT-J1030 Depo Medrol 40 mg (Methyl Prednisolone Acetate) 15:51: 24 DEAD MAIL CHECKER CPT-87892 Abx/Therapy Injection 15:51:24 DEAD MAIL CHECKER CPT-J1100 Decadron 4mg (Dexamethasone) 15:26:33 DEAD MAIL CHECKER CPT-J1030 Depo Medrol 40 mg (Methyl Prednisolone Acetate) 15:26: 33 DEAD MAIL CHECKER CPT-67028 Sono retroperitoneal complete kidneys and bladder 17:15: 30 CDT CPT-10638 Abd compl w upright 16:09:25 CDT CPT-J1100 Decadron 8mg (Dexamethasone) 17:07:57 CDT CPT-71059 Abx/Therapy Injection 17:07:57 CDT CPT-J1100 Decadron 8mg (Dexamethasone) 16:55:24 CDT CPT-34361 Chest 2V Frontal and Lat 16:32:44 CDT
--- OUTSIDE RECORDS SUMMARY | 2016-11-05 00:51 | XMS REPORT | Clinical Summary ---
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 V72.31 Active Suzan Boo TINSEL MACHINE OPERATOR Routine gynecological examination Bronchitis, acute with mild bronchospasm 466.0 Active Suzan Boo TINSEL MACHINE OPERATOR Acute bronchitis Fibrocystic breast changes [...] then 1 daily for 4 days AZITHROMYCIN 11278213841 Active Suzan Boo APRN Active PREDNISONE 10 MG TABS 2 daily for 5 days then 1 daily for 5 days PREDNISONE 44241812804 Active Suzan Boo APRN Active CLONAZEPAM 1 MG ORAL TABS 1 twice a day and an additional 1 tablet every other day as needed for pseudoseizures or anxiety CLONAZEPAM 93737527401 Active Ahemt Carbajal MD Active HYDROCODONE-ACETAMINOPHEN 5-325 MG ORAL TABS 1 tab two times a day HYDROCODONE-ACETAMINOPHEN 59139877646 No Longer Active Ahmet Carbajal MD Active LAMICTAL 100 MG ORAL TABS 1 tab 2 times qd. LAMOTRIGINE 98141112449 Active Ahmet Carbajal MD Active PREDNISONE 20 MG TABS 2 daily for 5 days then 1 daily for 5 days PREDNISONE 48286634537 No Longer Active Ahmet Carbajal MD Active FLUTICASONE PROPIONATE 50 MCG/ACT SUSP 1 to 2 sprays each nostril daily for allergies FLUTICASONE PROPIONATE 13164801004 Active Tila Valenzuela Active GUAIFENESIN-CODEINE 100-10 MG/5ML SYRP 5ml every 4 to 6 hours as needed for cough GUAIFENESIN-CODEINE 89290871612 Active Ahmet Carbajal MD Active BENADRYL 25 MG CAP 4 po at bedtime for insomnia DIPHENHYDRAMINE HCL 81997883884 No Longer Active Ahmet Carbajal MD Active ADVAIR DISKUS 250-50 MCG/DOSE INH AEPB 1 puff twice a day for asthma FLUTICASONE-SALMETEROL 49938286239 No Longer Active Ahmet Carbajal MD Active KLONOPIN 1 MG ORAL TABS 1 tab po TID CLONAZEPAM 24151038279 No Longer Active Ahmet Carbajal MD Active ABILIFY MAINTENA 400 MG IM SUSR 400mg injection every 26 days ARIPIPRAZOLE 22655632811 No Longer Active Ahmet Carbajal MD Active HALOPERIDOL 10 MG ORAL TABS 1 tab q.d HALOPERIDOL 50657136920 Active Ahmet Carbajal MD Active ASPIRIN 325 MG ORAL TABS 1 tab q.d ASPIRIN 04938398117 Active Ahmet Carbajal MD Active TRAMADOL HCL 50 MG TABS 1/2-1 tab TID PRN TRAMADOL HCL 72016534094 No Longer Active Ahmet Carbajal MD Active BACTRIM DS 800-160 MG TABS 1 twice a day SULFAMETHOXAZOLE- TRIMETHOPRIM 52623221066 No Longer Active Ahmet Carbajal MD Active PROAIR HFA 108 (90 BASE) MCG/ACT AERS 2 puffs four times a day as needed 2015 ALBUTEROL SULFATE 89643695742 Active Ahmet Carbajal MD Active EQ NICOTINE 21 MG/24HR TRANS PT24 Apply daily to stop smoking NICOTINE 72117192753 Active Ahmet Carbajal MD Active MONISTAT 7 COMBO PACK WOODROW 100 & 2 MG-% (9GM) VAG KIT 1 applicatorful per vagina q pm x 7 MICONAZOLE NITRATE 06517388396 No Longer Active Ahmet Carbajal MD Active FLAGYL 500 MG TAB 1 tablet by mouth bid METRONIDAZOLE 51511275754 No Longer Active Ahmet Carbajal MD Active OXYCODONE HCL ER 10 MG ORAL T12A 1/2 tab by mouth every 4 hours prn OXYCODONE HCL 07857483332 No Longer Active Ahmet Carbajal MD Active METHYLPREDNISOLONE 4 MG ORAL TABS po daily METHYLPREDNISOLONE 52739207235 No Longer Active Ahmet Carbajal MD Active LEVOFLOXACIN 500 MG ORAL TABS po daily LEVOFLOXACIN 76360911046 No Longer Active Ahmet Carbajal MD Active VIIBRYD 10 MG ORAL TABS Take 1 tablet once a day VILAZODONE HCL 54759183126 No Longer Active Ahmet Carbajal MD Active TOPAMAX 50 MG ORAL TABS 1 tab twice daily TOPIRAMATE 52250739282 No Longer Active Ahmet Carbajal MD Active DICLOFENAC SODIUM 50 MG TBEC 1 tablet by mouth four times daily PRN Pain 2015 DICLOFENAC SODIUM 55337027082 No Longer Active Ahmet Carbajal MD Active ADZENYS XR-ODT 6.3 MG ORAL TBED 1 tab po daily for ADHD AMPHETAMINE 28669171360 No Longer Active Ahmet Carbajal MD Active CHANTIX 1 MG TABS 1 twice a day to help quit smoking VARENICLINE TARTRATE 89771158752 No Longer Active Dipika Burgos MD Active CHANTIX STARTING MONTH EARNEST 0.5 MG X 11 & 1 MG X 42 TABS take as directed 2015 VARENICLINE TARTRATE 79772569950 No Longer Active Dipika Burgos MD Active TESSALON PERLES 100 MG CAP 1 to 2 tablets by mouth 3 times daily as needed for cough BENZONATATE 24603977797 No Longer Active Luigi Martínez APRN Active IMITREX 50 MG ORAL TABS 0.5 po x 1 PRN Headache. May repeat dose x 1 in 2 hours if needed SUMATRIPTAN SUCCINATE 13963349086 Active Ahmet Carbajal MD Active HYDROCODONE-ACETAMINOPHEN 5-325 MG TABS 1 to 2 four times a day as needed for pain use until can be seen by specialist HYDROCODONE- ACETAMINOPHEN 30049570526 No Longer Active Vishal Hui MD Active PROAIR HFA 108 (90 BASE) MCG/ACT AERS 2 puffs four times a day as needed 2015 ALBUTEROL SULFATE 68850271659 No Longer Active Vishal Hui MD Active PREDNISONE 20 MG TABS 2 daily for 5 days then 1 daily for 5 days PREDNISONE 22156332568 No Longer Active Vishal Hui MD Active ZITHROMAX Z-EARNEST 250 MG TABS 2 today and then 1 daily for 4 days AZITHROMYCIN 42056092584 No Longer Active Vishal Hui MD Active DICLOFENAC POTASSIUM TABS Take 1 tablet twice a day (pt. is not sure of the dose.) DICLOFENAC POTASSIUM TABS 51973687985 No Longer Active Vishal Hiu MD Active VERAPAMIL HCL ER 120 MG ORAL CR-TABS Take 1 tablet by mouth twice a day. VERAPAMIL HCL 00716962008 Active Vishal Hui MD Active FLAGYL 500 MG TAB 1 tablet by mouth bid METRONIDAZOLE 84214858407 No Longer Active Vishal Hui MD Active FLUTICASONE PROPIONATE 50 MCG/ACT SUSP 2 sprays each nostril daily before bed. FLUTICASONE PROPIONATE 69313372189 Active Fabiola Johnson APRN Active VALIUM 5 MG TAB Take 1-2 tablets daily DIAZEPAM 11513699594 No Longer Active Fabiola Johnson APRN Active METOPROLOL TARTRATE 25 MG ORAL TABS 1/2 tablet twice daily for heart rate and blood pressure METOPROLOL TARTRATE 96110465801 No Longer Active Fabiola Johnson APRN Active MIRALAX ORAL POWD 17GMS DAILY IN WATER POLYETHYLENE GLYCOL 3350 60520903217 Active TAMARA Casey Active MIRALAX PACK 1 po qd PRN Constipation POLYETHYLENE GLYCOL 3350 46012497140 No Longer Active Ahmet Carbajal MD Active MINIPRESS 2 MG CAPS 4 cap po at night PRAZOSIN HCL 95932442761 No Longer Active Ahmet Carbajal MD Active PIROXICAM 20 MG CAPS 1 cap po qd PRN Pain PIROXICAM 27796842235 No Longer Active Ahmet Carbajal MD Active TRAMADOL HCL 50 MG TABS 1-2 po TID PRN Pain TRAMADOL HCL 78328664201 No Longer Active Ahmet Carbajal MD Active METOPROLOL TARTRATE 50 MG TAB 1 po bid METOPROLOL TARTRATE 63626102014 No Longer Active Ahmet Carbajal MD Active ABILIFY 15 MG ORAL TABS 1 tab daily ARIPIPRAZOLE 12625957279 No Longer Active Ahmet Carbajal MD Active PROZAC 20 MG ORAL CAPS 1 tab daily FLUOXETINE HCL 11600273421 No Longer Active Ahmet Carbajal MD Active AMBIEN 5 MG ORAL TABS 1 tab at bedtime ZOLPIDEM TARTRATE 63314319694 No Longer Active Ahmet Carbajal MD Active PREDNISONE 20 MG TAB 2 tabs daily for 4 days, 1 tab daily for 4 days, 1/2 tab daily for 4 days PREDNISONE 53452547208 No Longer Active Ahmet Carbajal MD Active KEFLEX 500 MG CAP 1 po TID x 10 days CEPHALEXIN 83854593462 No Longer Active Vishal Hui MD Active SAPHRIS 5 MG SUBL 1 po bid ASENAPINE MALEATE 23129434531 No Longer Active Luigi Martínez TINSEL MACHINE OPERATOR Active LATUDA 80 MG TABS Take one by mouth daily LURASIDONE HCL 18275602063 No Longer Active Luigi Martínez APRN Active AMLODIPINE BESYLATE 5 MG TABS 1 tablet by mouth daily AMLODIPINE BESYLATE 26282298876 No Longer Active Pacooral Martínez APRN Active AMITRIPTYLINE HCL 100 MG TAB one at hs AMITRIPTYLINE HCL 40363228914 No Longer Active Vishal Hui MD Active TRAZODONE HCL 100 MG TAB take 1 at bedtime TRAZODONE HCL 71331879860 No Longer Active Vishal Hui MD Active VYVANSE 40 MG CAPS 1 daily, LISDEXAMFETAMINE DIMESYLATE 30484411959 No Longer Active Vishal Hui MD Active IBUPROFEN 600 MG TAB 1 po TID PRN IBUPROFEN 02365629141 No Longer Active Vishal Hui MD Active PROZAC 20 MG CAP Take one by mouth daily FLUOXETINE HCL 64118649071 No Longer Active Vishal Hui MD Active ZOFRAN 4 MG TABS 1 po q6hr PRN Nausea ONDANSETRON HCL Active Vishal Hui MD Active BACTRIM DS 800-160 MG TABS 1 pill by mouth twice daily SULFAMETHOXAZOLE-TRIMETHOPRIM 38889434052 No Longer Active Sahara Rodriguez MD PhD Active DIFLUCAN 150 MG TAB 1 tablet by mouth daily FLUCONAZOLE 44340530796 No Longer Active Vishal Hui MD Active TIZANIDINE HCL 4 MG TABS 1 po q6hr PRN Muscle Spasm/Back Pain TIZANIDINE HCL 03076442588 Active Vishal Hui MD Active CLINDAMYCIN HCL 150 MG CAPS 1 four times a day CLINDAMYCIN HCL 21341012586 No Longer Active Neeraj Collins MD Active KEFLEX 500 MG ORAL CAPS 1 cap QID by mouth CEPHALEXIN 47834604599 No Longer Active Neeraj Collins MD Active DIFLUCAN 150 MG TABS 1 pill every other day x 2 doses FLUCONAZOLE 22611328437 No Longer Active Sahara Rodriguez MD PhD Active MELATONIN 3 MG CAPS 2 po q hs MELATONIN 92744243621 No Longer Active Sahara Rodriguez MD PhD Active MULTIVITAMINS CAPS Take one by mouth daily MULTIPLE VITAMIN 10099990374 No Longer Active Sahara Rodriguez MD PhD Active BACTRIM DS 800-160 MG TAB 1 tab by mouth twice daily TRIMETHOPRIM-SULFAMETHOXAZOLE 14565529731 No Longer Active Sahara Rodriguez MD PhD Active [facility] PROBIOTIC ORAL CHEW 2 daily po PROBIOTIC PRODUCT 82840880356 No Longer Active Sahara Rodriguez MD PhD Active BACTRIM DS 800-160 MG TABS 1 po BID x 7 days SULFAMETHOXAZOLE-TRIMETHOPRIM 29065850695 No Longer Active Vishal Hui MD Active CHANTIX STARTING MONTH EARNEST 0.5 MG X 11 & 1 MG X 42 TABS 0.5mg daily for 3 days , then 0.5mg BID for 4 days, then 1mg BID VARENICLINE TARTRATE 33959748149 No Longer Active TAMARA Gray Active VERAPAMIL HCL CR 120 MG TAB CR 1 po bid VERAPAMIL HCL 14457365714 No Longer Active Vishal Hui MD Active METOPROLOL SUCCINATE 50 MG TB24 1 tablet by mouth daily METOPROLOL SUCCINATE 37939838250 No Longer Active Vishal Hui MD Active SAPHRIS 10 MG SUBL 1 tab po bid ASENAPINE MALEATE 78699733081 No Longer Active Vishal Hui MD Active LISINOPRIL 20 MG TABS 1 tab po qd LISINOPRIL 16113165914 No Longer Active Vishal uHi MD Active LATUDA 20 MG TABS Take one by mouth daily LURASIDONE HCL 33368308336 No Longer Active Vishal Hui MD Active TRAZODONE HCL 50 MG TABS 1/2 tab po qd prn for anxiety TRAZODONE HCL 33091145057 No Longer Active Vishal Hui MD Active OMEPRAZOLE 20 MG TBEC 1 po q a.m. 30min prior to first food intake OMEPRAZOLE 04215677749 Active Vishal Hui MD Active RANITIDINE HCL 150 MG CAPS 1 twice a day RANITIDINE HCL 33640290850 Active Luigi Messilebron NORIEGA Active LINZESS 290 MCG CAPS Take one by mouth daily LINACLOTIDE 18859015779 No Longer Active Vsihal Hui MD Active SAPHRIS 5 MG SUBL 1 tab po qd ASENAPINE MALEATE 64375663055 No Longer Active Vishal Hui MD Active ZALEPLON 10 MG CAPS 1 cap po every other night ZALEPLON 58526068841 No Longer Active Vishal Hui MD Active LYRICA 50 MG CAPS 1 tab po TID PREGABALIN 56061920728 No Longer Active Vishal Hui MD Active LORATADINE 10 MG TABS 1 tab po qd LORATADINE 31892803758 No Longer Active Vishal Hui MD Active VERAPAMIL HCL ER 180 MG CR-TABS 1 tab po bid VERAPAMIL HCL 98156834306 No Longer Active Vishal Hui MD Active MIRALAX POWD 1 capfull once daily POLYETHYLENE GLYCOL 3350 37183917647 No Longer Active Vishal Hui MD Active PREDNISONE 20 MG TABS 1 tab po qd PREDNISONE 96026170388 No Longer Active Renzo Thornton DO Active LEVOFLOXACIN 500 MG TABS 1 tab po qd LEVOFLOXACIN 04838429159 No Longer Active Renzo Thornton DO Active BUSPIRONE HCL 15 MG TABS 1 tab po TID BUSPIRONE HCL 84997824175 No Longer Active Renzo Thornton DO Active BENZTROPINE MESYLATE 1 MG TABS 1 tab po qd BENZTROPINE MESYLATE 09079477318 No Longer Active Renzo Thornton DO Active ATENOLOL 25 MG TABS 1 tab po qd ATENOLOL 34323345614 No Longer Active Renzo Thornton DO Active ESCITALOPRAM OXALATE 20 MG TABS 1 tab po qd ESCITALOPRAM OXALATE 44796344949 No Longer Active Renzo Thornton DO Active ADVAIR DISKUS 250-50 MCG/DOSE AEPB 1 puff BID FLUTICASONE-SALMETEROL 84736493119 No Longer Active Renzo Thornton DO Active PREDNISONE 20 MG TAB 2 tabs daily for 3 days, 1 tab daily for 3 days, 1/2 tab daily for 2 days PREDNISONE 21938549996 No Longer Active Vishal Hui MD Active CEFDINIR 300 MG CAPS by mouth twice a day CEFDINIR 27660996971 No Longer Active Vishal Hui MD Active LANSOPRAZOLE 30 MG CPDR 1 cap po qd LANSOPRAZOLE 78395898505 No Longer Active Vishal Hui MD Active BACLOFEN 20 MG TABS 1 tab po tid BACLOFEN 63382762720 No Longer Active Vishal Hui MD Active ADVAIR DISKUS 250-50 MCG/DOSE AEPB 1 puff BID ADVAIR DISKUS 250-50 MCG/DOSE AEPB FLUTICASONE-SALMETEROL Inactive ESCITALOPRAM OXALATE 20 MG TABS 1 tab po qd ESCITALOPRAM OXALATE 20 MG TABS 684379 ESCITALOPRAM OXALATE Inactive ATENOLOL 25 MG TABS 1 tab po qd ATENOLOL 25 MG TABS 734054 ATENOLOL Inactive BENZTROPINE MESYLATE 1 MG TABS 1 tab po qd BENZTROPINE MESYLATE 1 MG TABS 682976 BENZTROPINE MESYLATE Inactive BUSPIRONE HCL 15 MG TABS 1 tab po TID BUSPIRONE HCL 15 MG TABS 158022 BUSPIRONE HCL Inactive LEVOFLOXACIN 500 MG TABS 1 tab po qd LEVOFLOXACIN 500 MG TABS 547168 LEVOFLOXACIN Inactive PREDNISONE 20 MG TABS 1 tab po qd PREDNISONE 20 MG TABS 554884 PREDNISONE Inactive MIRALAX POWD 1 capfull once daily MIRALAX POWD 393313 POLYETHYLENE GLYCOL 3350 Inactive VERAPAMIL HCL ER 180 MG CR-TABS 1 tab po bid VERAPAMIL HCL ER 180 MG CR-TABS VERAPAMIL HCL Inactive LORATADINE 10 MG TABS 1 tab po qd LORATADINE 10 MG TABS 642327 LORATADINE Inactive LYRICA 50 MG CAPS 1 tab po TID LYRICA 50 MG CAPS PREGABALIN Inactive ZALEPLON 10 MG CAPS 1 cap po every other night ZALEPLON 10 MG CAPS 239275 ZALEPLON Inactive SAPHRIS 5 MG SUBL 1 tab po qd SAPHRIS 5 MG SUBL ASENAPINE MALEATE Inactive TRAZODONE HCL 50 MG TABS 1/2 tab po qd prn for anxiety TRAZODONE HCL 50 MG TABS 809470 TRAZODONE HCL Inactive LATUDA 20 MG TABS Take one by mouth daily LATUDA 20 MG TABS LURASIDONE HCL Inactive LISINOPRIL 20 MG TABS 1 tab po qd LISINOPRIL 20 MG TABS 026927 LISINOPRIL Inactive SAPHRIS 10 MG SUBL 1 [...] twice daily BACTRIM DS 800-160 MG TAB 799149 TRIMETHOPRIM-SULFAMETHOXAZOLE Inactive MULTIVITAMINS CAPS Take one by mouth daily MULTIVITAMINS CAPS MULTIPLE VITAMIN Inactive MELATONIN 3 MG CAPS 2 po q hs MELATONIN 3 MG CAPS 19950526 MELATONIN Inactive KEFLEX 500 MG ORAL CAPS 1 cap QID by mouth KEFLEX 500 MG ORAL CAPS 832152 CEPHALEXIN Inactive CLINDAMYCIN HCL 150 MG CAPS 1 four times a day CLINDAMYCIN HCL 150 MG CAPS 688406 CLINDAMYCIN HCL Inactive DIFLUCAN 150 MG TAB 1 tablet by mouth daily DIFLUCAN 150 MG TAB 296806 FLUCONAZOLE Inactive PROZAC 20 MG CAP Take one by mouth daily PROZAC 20 MG CAP 668333 FLUOXETINE HCL Inactive IBUPROFEN 600 MG TAB 1 po TID PRN IBUPROFEN 600 MG TAB 171598 IBUPROFEN Inactive VYVANSE 40 MG CAPS 1 daily, VYVANSE 40 MG CAPS LISDEXAMFETAMINE DIMESYLATE Inactive TRAZODONE HCL 100 MG TAB take 1 at bedtime TRAZODONE HCL 100 MG TAB 944718 TRAZODONE HCL Inactive AMITRIPTYLINE HCL 100 MG TAB one at hs AMITRIPTYLINE HCL 100 MG TAB 219609 AMITRIPTYLINE HCL Inactive AMLODIPINE BESYLATE 5 MG TABS 1 tablet by mouth daily AMLODIPINE BESYLATE 5 MG TABS 204574 AMLODIPINE BESYLATE Inactive LATUDA 80 MG TABS Take one by mouth daily LATUDA 80 MG TABS LURASIDONE HCL Inactive SAPHRIS 5 MG SUBL 1 po bid SAPHRIS 5 MG SUBL ASENAPINE MALEATE Inactive PREDNISONE 20 MG TAB 2 tabs daily for 4 days, 1 tab daily for 4 days, 1/2 tab daily for 4 days PREDNISONE 20 MG TAB 211855 PREDNISONE Inactive AMBIEN 5 MG ORAL TABS 1 tab at bedtime AMBIEN 5 MG ORAL TABS 453424 ZOLPIDEM TARTRATE Inactive PROZAC 20 MG ORAL CAPS 1 tab daily PROZAC 20 MG ORAL CAPS 606441 FLUOXETINE HCL Inactive ABILIFY 15 MG ORAL TABS 1 tab daily ABILIFY 15 MG ORAL TABS 730697 ARIPIPRAZOLE Inactive METOPROLOL TARTRATE 50 MG TAB 1 po bid METOPROLOL TARTRATE 50 MG TAB 162746 METOPROLOL TARTRATE Inactive TRAMADOL HCL 50 MG TABS 1-2 po TID PRN Pain TRAMADOL HCL 50 MG TABS 286218 TRAMADOL HCL Inactive PIROXICAM 20 MG CAPS 1 cap po qd PRN Pain PIROXICAM 20 MG CAPS 925893 PIROXICAM Inactive MINIPRESS 2 MG CAPS 4 cap po at night MINIPRESS 2 MG CAPS 535420 PRAZOSIN HCL Inactive MIRALAX PACK 1 po qd PRN Constipation MIRALAX PACK 652169 POLYETHYLENE GLYCOL 3350 Inactive METOPROLOL TARTRATE 25 MG ORAL TABS 1/2 tablet twice daily for heart rate and blood pressure METOPROLOL TARTRATE 25 MG ORAL TABS 693116 METOPROLOL TARTRATE Inactive VALIUM 5 MG TAB Take 1-2 tablets daily VALIUM 5 MG TAB 873848 DIAZEPAM Inactive FLAGYL 500 MG TAB 1 tablet by mouth bid FLAGYL 500 MG TAB 226929 METRONIDAZOLE Inactive DICLOFENAC POTASSIUM TABS Take 1 tablet twice a day (pt. is not sure of the dose.) DICLOFENAC POTASSIUM TABS DICLOFENAC POTASSIUM TABS Inactive ZITHROMAX Z-EARNEST 250 MG TABS 2 today and then 1 daily for 4 days ZITHROMAX Z-EARNEST 250 MG TABS 8649007 AZITHROMYCIN Inactive PREDNISONE 20 MG TABS 2 daily for 5 days then 1 daily for 5 days PREDNISONE 20 MG TABS 103523 PREDNISONE Inactive PROAIR HFA 108 (90 BASE) MCG/ACT AERS 2 puffs four times a day as needed 2015 PROAIR HFA 108 (90 BASE) MCG/ACT AERS ALBUTEROL SULFATE Inactive HYDROCODONE-ACETAMINOPHEN 5-325 MG TABS 1 to 2 four times a day as needed for pain use until can be seen by specialist HYDROCODONE- ACETAMINOPHEN 5-325 MG TABS 847236 HYDROCODONE-ACETAMINOPHEN Inactive TESSALON PERLES 100 MG CAP 1 to 2 tablets by mouth 3 times daily as needed for cough TESSALON PERLES 100 MG CAP 501766 BENZONATATE Inactive CHANTIX STARTING MONTH EARNEST 0.5 [...] Pain 2015 DICLOFENAC SODIUM 50 MG TBEC 998091 DICLOFENAC SODIUM Inactive TOPAMAX 50 MG ORAL TABS 1 tab twice daily TOPAMAX 50 MG ORAL TABS 337245 TOPIRAMATE Inactive VIIBRYD 10 MG ORAL TABS Take 1 tablet once a day VIIBRYD 10 MG ORAL TABS VILAZODONE HCL Inactive LEVOFLOXACIN 500 MG ORAL TABS po daily LEVOFLOXACIN 500 MG ORAL TABS 490684 LEVOFLOXACIN Inactive METHYLPREDNISOLONE 4 MG ORAL TABS po daily METHYLPREDNISOLONE 4 MG ORAL TABS 886156 METHYLPREDNISOLONE Inactive OXYCODONE HCL ER 10 MG ORAL T12A 1/2 tab by mouth every 4 hours prn OXYCODONE HCL ER 10 MG ORAL T12A OXYCODONE HCL Inactive FLAGYL 500 MG TAB 1 tablet by mouth bid FLAGYL 500 MG TAB 370640 METRONIDAZOLE Inactive MONISTAT 7 COMBO PACK WOODROW 100 & 2 MG-% (9GM) VAG KIT 1 applicatorful per vagina q pm x 7 MONISTAT 7 COMBO PACK WOODROW 100 & 2 MG-% (9GM) VAG KIT MICONAZOLE NITRATE Inactive BACTRIM DS 800-160 MG TABS 1 twice a day BACTRIM DS 800-160 MG TABS 635600 SULFAMETHOXAZOLE-TRIMETHOPRIM Inactive TRAMADOL HCL 50 MG TABS 1/2-1 tab TID PRN TRAMADOL HCL 50 MG TABS 012929 TRAMADOL HCL Inactive ABILIFY MAINTENA 400 MG IM SUSR 400mg injection every 26 days ABILIFY MAINTENA 400 MG IM SUSR ARIPIPRAZOLE Inactive KLONOPIN 1 MG ORAL TABS 1 tab po TID KLONOPIN 1 MG ORAL TABS 201534 CLONAZEPAM Inactive ADVAIR DISKUS 250-50 MCG/DOSE INH AEPB 1 puff twice a day for asthma ADVAIR DISKUS 250-50 MCG/DOSE INH AEPB FLUTICASONE- SALMETEROL Inactive BENADRYL 25 MG CAP 4 po at bedtime for insomnia BENADRYL 25 MG CAP DIPHENHYDRAMINE HCL Inactive PREDNISONE 20 MG TABS 2 daily for 5 days then 1 daily for 5 days PREDNISONE 20 MG TABS 876230 PREDNISONE Inactive HYDROCODONE-ACETAMINOPHEN 5-325 MG ORAL TABS 1 tab two times a day HYDROCODONE-ACETAMINOPHEN 5-325 MG ORAL TABS 320132 HYDROCODONE-ACETAMINOPHEN Inactive CEFDINIR 300 MG CAPS by mouth twice a day CEFDINIR 300 MG CAPS 164945 CEFDINIR Inactive PREDNISONE 20 MG TAB 2 tabs daily for 3 days, 1 tab daily for 3 days, 1/2 tab daily for 2 days PREDNISONE 20 MG TAB 374375 PREDNISONE Inactive BACTRIM DS 800-160 MG TABS 1 po BID x 7 days BACTRIM DS 800-160 MG TABS 608079 SULFAMETHOXAZOLE-TRIMETHOPRIM Inactive DIFLUCAN 150 MG TABS 1 pill every other day x 2 doses DIFLUCAN 150 MG TABS 071878 FLUCONAZOLE Inactive BACTRIM DS 800-160 MG TABS 1 pill by mouth twice daily BACTRIM DS 800-160 MG TABS 364650 SULFAMETHOXAZOLE-TRIMETHOPRIM Inactive KEFLEX 500 MG CAP 1 po TID x 10 days KEFLEX 500 MG CAP 358029 CEPHALEXIN Inactive Advance Directives Directive Description Start [...] 369 10^3/MM^3 10*3/mm3 142-424 Lab Report: Chlamydia/GC APTIMA/[id number] - Lab chlamydia DNA probe NOT DETECTED NOT DETECTED Lab Report: Chlamydia/GC APTIMA/[id number] - Microbiology Neisseria gonorrhoeae DNA probe NOT DETECTED NOT DETECTED Lab Report: Comp. Metabolic Panel - Chemistry sodium, serum 142 mmol/L 491-700 1410/06/08 carbon dioxide, venous blood 27.6 mmol/L 21.0-32.0 potassium, serum 4.0 mmol/L 3.5-5.2 chloride, serum 105 mmol/L 98-107 blood glucose 95 mg/dL 65-110 urea nitrogen, blood 8 mg/dL 7-18 creatinine, serum 0.75 mg/dL 0.55-1.30 alanine aminotransferase (SGPT), serum 49 U/L 12-78 aspartate aminotransferase (SGOT), serum 28 U/L 15-37 calcium, serum 9.4 mg/dL 8.5-10.1 bilirubin, serum, total 0.30 mg/dL 0.00-1.00 sodium, serum 140 mmol/L 283-899 5975/08/08 carbon dioxide, venous blood 33.7 mmol/L 21.0-32.0 [...] mg/dL Encounters Code Encounter Date Provider Facility CPT-[id number] Level 4 Est. Patient 10:20:54 BOTTOM BUFFER Suzan Boo [facility] CPT-03221 Level 3 Est. Patient 11:47:37 BOTTOM BUFFER [facility] CPT-04735 Level 3 Est. Patient 10:40:11 BOTTOM BUFFER Ah[facility] CPT-99896 Level 3 Est. Patient 15:07:06 BOTTOM BUFFER Neeraj Collins [facility] CPT-50690 Level 4 Est. Patient 14:45:00 BOTTOM BUFFER Ah[facility] CPT-46517 Level 3 Est. Patient 13:59:59 CDT Luigi Martínez [facility] CPT-07224 Level 3 Est. Patient 18:18:53 CDT Neeraj Collins [facility] CPT-38834 Level 3 Est. Patient 15:50:44 CDT Vishal Hui [facility] CPT-38685 Level 3 Est. Patient 11:36:17 CDT Ahmet Carbajal [facility] CPT-14544 Level 3 Est. Patient 13:29:16 CDT Vishal Hui MD [facility] CPT-63352 Level 3 Est. Patient 14:27:52 CDT Neeraj Collins [facility] CPT-62228 Level 3 Est. Patient 08:56:03 CDT Luigi Martínez [facility] CPT-08774 Level 4 Est. Patient 12:11:48 CDT Fabiola Johnson [facility] CPT-42383 Level 3 New Patient 16:53:37 CDT Albert Caldera [facility] CPT-47388 Level 3 Est. Patient 11:25:49 CDT Renzo Thornton DO [facility] CPT-91161 Level 3 Est. Patient 15:22:01 CDT Ahmet Carbajal [facility] CPT-86056 Level 4 Est. Patient 09:00:51 BOTTOM BUFFER Vishal Hui [facility] CPT-81059 Level 3 Est. Patient 11:37:33 BOTTOM BUFFER Vishal Hui MD [facility] CPT-16246 Level 3 Est. Patient 08:41:09 BOTTOM BUFFER Vishal Hui MD [facility] CPT-64771 Level 4 Est. Patient 10:19:35 BOTTOM BUFFER Vishal Hui MD [facility] CPT-57663 Level 3 Est. Patient 13:35:45 CDT Vishal Hui MD [facility] CPT-33750 Level 4 Est. Patient 10:08:37 CDT Vishal Hui MD [facility] CPT-66591 Level 3 Est. Patient 11:22:10 CDT Vishal Hui MD [facility] CPT-50442 Level 3 Est. Patient 11:03:32 CDT Sahara Rodriguez MD [facility]-76597 Level 3 Est. Patient 09:41:35 CDT Vishal Hui MD [facility]-43008 Level 3 Est. Patient 12:00:41 CDT Neeraj Collins MD [facility] [place]-17922 Level 3 Est. Patient 09:16:24 CDT Vishal Hui MD [facility] CPT-65812 Level 4 Est. Patient 13:59:09 CDT Neeraj Collins MD [facility] [place]-36290 Level 3 Est. Patient 15:19:43 CDT Renzo Thornton DO [facility] CPT-[id number] Level 3 Est. Patient 18:10:26 CDT Sahara Rodriguez MD [facility] CPT-[id number] Level 3 Est. Patient 14:49:50 CDT Vishal Hui MD [facility] [place]-16914 Level 4 Est. Patient 18:41:46 CDT Neeraj Collins MD [facility] [place]-42114 Level 4 Est. Patient 09:18:38 BOTTOM BUFFER Vishal H[facility] CPT-04437 Level 3 Est. Patient 14:43:55 BOTTOM BUFFER Vishal Hui MD [facility] [facility] CPT-53301 Level 3 Est. Patient 15:26:33 BOTTOM BUFFER Sahara Rodriguez MD [facility]-55094 Level 3 Est. Patient 10:32:14 BOTTOM BUFFER Vishal Hui MD [facility] CPT-98732 Level 3 Est. Patient 15:12:52 BOTTOM BUFFER Vishal Hui MD [facility] [place]-[address] Level 4 Est. Patient 09:19:27 CDT Vishal [facility] CPT-03456 Level 3 Est. Patient 15:53:00 CDT Renzo Thornton [facility] CPT-21507 Level 3 Est. Patient 15:50:30 CDT Renzo Thornton [facility] CPT-84295 Level 3 Est. Patient 16:55:24 CDT Vishal Hui MD [facility] Procedures Code Procedure Name Date Entry Date Standard Description CPT-G0439 [facility] Annual Wellness Exam 09:30:58 BOTTOM BUFFER CPT-24398 TSH - LAB USE ONLY 08:50:26 BOTTOM BUFFER CPT-23744 CBC - LAB USE ONLY 08:50:26 BOTTOM BUFFER CPT-93443 Venipuncture Draw Fee 08:50:26 BOTTOM BUFFER CPT-44054 Abx/Therapy Injection 17:34:30 BOTTOM BUFFER CPT-63611 Nexplanon Removal with Reinsertion 14:09:32 CDT CPT-J7307 Nexplanon (Implant) 14:09:32 CDT CPT-OV Office Visit 14:09:32 CDT CPT-43587 UA w micro - LAB USE ONLY 16:21:13 CDT CPT-19763 Wet Mount - LAB USE ONLY 16:21:13 CDT CPT-31257 First Vx - Ix admin for Medicare patients 14:37:47 CDT CPT-07390 Fluzone Preservative Free Intramuscular Suspension 14:37 :47 CDT CPT-02933 Abx/Therapy Injection 13:54:22 CDT CPT-75114 Abx/Therapy Injection 08:47:09 CDT CPT-59352 Abx/Therapy Injection 13:29:56 CDT CPT-88531 Abx/Therapy Injection 08:36:16 CDT CPT-68897 Wet Mount - LAB USE ONLY 17:44:58 CDT CPT-64363 UA w micro - LAB USE ONLY 17:44:58 CDT CPT-92134 CMP - LAB USE ONLY 17:44:58 CDT CPT-34902 Venipuncture Draw Fee 17:44:58 CDT CPT-25325 Cervical Min 4V - XRAY USE ONLY 09:01:40 CDT CPT-12660 Chest 2V Frontal and Lat - XRAY USE ONLY 11:06:31 CDT CPT-88692 EKG Trac and Interp - XRAY USE ONLY 11:31:43 CDT 08/26 CPT-J3420 Vitamin B12 1000mcg (Cyanocobalamin) 08:10:26 BOTTOM BUFFER 04/12 CPT-18267 Abx/Therapy Injection 08:10:26 BOTTOM BUFFER CPT-G0438 Initial Annual Wellness Exam 19:01:01 BOTTOM BUFFER CPT-J3420 Vitamin B12 1000mcg (Cyanocobalamin) 16:57:46 CDT 08/14 CPT-39524 Recombivax HB Injection Suspension 5 MCG/0.5ML 08:37:50 BOTTOM BUFFER CPT-51634 Immunization Single Admin 08:37:50 BOTTOM BUFFER CPT-J3420 Vitamin B12 1000mcg (Cyanocobalamin) 08:32:16 BOTTOM BUFFER 03/11 CPT-86654 Abx/Therapy Injection 08:32:16 BOTTOM BUFFER CPT-79226 Chest 2V Frontal and Lat 11:46:38 BOTTOM BUFFER CPT-04122 Venipuncture Draw Fee 09:12:45 BOTTOM BUFFER CPT-J3420 Vitamin B12 1000mcg (Cyanocobalamin) 08:50:15 BOTTOM BUFFER 02/08 CPT-21985 Abx/Therapy Injection 08:50:15 BOTTOM BUFFER CPT-Cryo Cryotherapy 10:19:35 BOTTOM BUFFER CPT-000 Give Appropriate Flu Vaccine 09:22:16 CDT CPT-J3420 Vitamin B12 1000mcg (Cyanocobalamin) 19:08:57 CDT 01/11 CPT-61902 Abx/Therapy Injection 19:08:57 CDT CPT-J3420 Vitamin B12 1000mcg (Cyanocobalamin) 08:19:08 CDT 12/11 CPT-20092 Abx/Therapy Injection 08:19:08 CDT CPT-J3420 Vitamin B12 1000mcg (Cyanocobalamin) 14:48:00 CDT 11/09 CPT-29837 Abx/Therapy Injection 14:47:59 CDT CPT-J3420 Vitamin B12 1000mcg (Cyanocobalamin) 08:34:04 CDT 10/09 CPT-25221 Abx/Therapy Injection 08:34:04 CDT CPT-J3420 Vitamin B12 1000mcg (Cyanocobalamin) 09:18:52 CDT 09/11 CPT-32311 Abx/Therapy Injection 09:18:52 CDT CPT-J3420 Vitamin B12 1000mcg (Cyanocobalamin) 08:35:44 CDT 09/04 CPT-99809 Abx/Therapy Injection 08:35:44 CDT CPT-89150 Immunization Single Admin 11:07:16 CDT CPT-19873 Hepatitis B adult IM 11:07:16 CDT CPT-J3420 Vitamin B12 1000mcg (Cyanocobalamin) 11:00:49 CDT 08/28 CPT-J1040 Depo Medrol 80 mg (Methyl Prednisolone Acetate) 11:00: 49 CDT CPT-81816 Abx/Therapy Injection 11:00:49 CDT CPT-J1040 Depo Medrol 80 mg (Methyl Prednisolone Acetate) 09:16: 23 CDT CPT-J3420 Vitamin B12 1000mcg (Cyanocobalamin) 08:27:05 CDT 08/20 CPT-26510 Abx/Therapy Injection 08:27:05 CDT CPT-71741 Recombivax HB Injection Suspension 5 MCG/0.5ML 10:00:41 CDT CPT-92960 Administration single or combination vaccine inc oral 10 :00:41 CDT CPT-07641 Sono transvag pelvis non OB uterus ovaries cervix 16:36: 57 CDT CPT-54205 LS spine comp w obliq 09:50:55 BOTTOM BUFFER CPT-94286 Abd compl w upright 09:50:55 BOTTOM BUFFER CPT-J1100 Decadron 4mg (Dexamethasone) 15:51:24 BOTTOM BUFFER CPT-J1030 Depo Medrol 40 mg (Methyl Prednisolone Acetate) 15:51: 24 BOTTOM BUFFER CPT-46647 Abx/Therapy Injection 15:51:24 BOTTOM BUFFER CPT-J1100 Decadron 4mg (Dexamethasone) 15:26:33 BOTTOM BUFFER CPT-J1030 Depo Medrol 40 mg (Methyl Prednisolone Acetate) 15:26: 33 BOTTOM BUFFER CPT-65892 Sono retroperitoneal complete kidneys and bladder 17:15: 30 CDT CPT-07942 Abd compl w upright 16:09:25 CDT CPT-J1100 Decadron 8mg (Dexamethasone) 17:07:57 CDT CPT-00218 Abx/Therapy Injection 17:07:57 CDT CPT-J1100 Decadron 8mg (Dexamethasone) 16:55:24 CDT CPT-91394 Chest 2V Frontal and Lat 16:32:44 CDT
--- OUTSIDE RECORDS SUMMARY | 2016-11-05 00:52 | XMS REPORT | Clinical Summary ---
Author Author Admin, E Organization [employer] Address Unknown Phone Unavailable Allergies, Adverse Reactions, [...] ORAL CHEW 2 daily po PROBIOTIC PRODUCT 44897815390 Active Jillina Frazell CLAY ARTISAN Active IBUPROFEN 600 MG TAB 1 po TID PRN IBUPROFEN 48987150334 Active Jillina Frazell C[employer] ARTISAN Active BACTRIM DS 800-160 MG TAB 1 tab by mouth twice daily TRIMETHOPRIM-SULFAMETHOXAZOLE 80484834659 Active Neeraj Collins MD Active BACTRIM DS 800-160 MG TABS 1 po BID x 7 days SULFAMETHOXAZOLE-TRIMETHOPRIM 80830106836 No Longer Active Vishal Hui MD Active CHANTIX STARTING MONTH EARNEST 0.5 MG X 11 & 1 MG X 42 TABS 0.5mg daily for 3 days , then 0.5mg BID for 4 days, then 1mg BID VARENICLINE TARTRATE 15600422246 No Longer Active TAMARA Gray Active METOPROLOL TARTRATE 50 MG TAB 1 po bid METOPROLOL TARTRATE 60621403027 Active Vishal Hui MD Active TRAZODONE HCL 100 MG TAB take 1 at bedtime TRAZODONE HCL 59023601295 Active Vishal Hui MD Active AMLODIPINE BESYLATE 5 MG TABS 1 tablet by mouth daily AMLODIPINE BESYLATE 17359768544 Active Vishal Hui MD Active VERAPAMIL HCL CR 120 MG TAB CR 1 po bid VERAPAMIL HCL 16011803453 No Longer Active Vishal Hui MD Active METOPROLOL SUCCINATE 50 MG TB24 1 tablet by mouth daily METOPROLOL SUCCINATE 05280591743 No Longer Active Vishal Hui MD Active TRAMADOL HCL 50 MG TABS 1-2 po TID PRN Pain TRAMADOL HCL 59026261490 Active Vishal Hui MD Active SAPHRIS 5 MG SUBL 1 po bid ASENAPINE MALEATE 80281649000 Active Vishal Hui MD Active SAPHRIS 10 MG SUBL 1 tab po bid ASENAPINE MALEATE 35846030946 No Longer Active Vishal Hui MD Active LISINOPRIL 20 MG TABS 1 tab po qd LISINOPRIL 89447074659 No Longer Active Vishal Hui MD Active BENADRYL 25 MG CAP 2 po tid prn anxiety DIPHENHYDRAMINE HCL 96086970958 Active Vishal Hui MD Active LATUDA 80 MG TABS Take one by mouth daily LURASIDONE HCL 18542375250 Active Vishal Hui MD Active LATUDA 20 MG TABS Take one by mouth daily LURASIDONE HCL 43929604914 No Longer Active Vishal Hui MD Active TRAZODONE HCL 50 MG TABS 1/2 tab po qd prn for anxiety TRAZODONE HCL 42357068459 No Longer Active Vishal Hui MD Active PIROXICAM 20 MG CAPS 1 cap po qd PRN Pain PIROXICAM 75062506712 Active Vishal Hui MD Active OMEPRAZOLE 20 MG TBEC 1 po q a.m. 30min prior to first food intake OMEPRAZOLE 92145247387 Active Vishal Hui MD Active RANITIDINE HCL 150 MG CAPS 1 twice a day RANITIDINE HCL 35073965108 Active Vishal Hui MD Active MULTIVITAMINS CAPS Take one by mouth daily MULTIPLE VITAMIN 51505788552 Active Vishal Hui MD Active MELATONIN 3 MG CAPS 2 po q hs MELATONIN 52841679795 Active Vishal Hui MD Active PROZAC 20 MG CAP Take one by mouth daily FLUOXETINE HCL 86700972187 Active Vishal Hui MD Active LINZESS 290 MCG CAPS Take one by mouth daily LINACLOTIDE 13407229250 Active Vishal Hui MD Active SAPHRIS 5 MG SUBL 1 tab po qd ASENAPINE MALEATE 50934515384 No Longer Active Vishal Hui MD Active ZALEPLON 10 MG CAPS 1 cap po every other night ZALEPLON 35021508798 No Longer Active Vishal Hui MD Active LYRICA 50 MG CAPS 1 tab po TID PREGABALIN 09753439216 No Longer Active Vishal Hui MD Active LORATADINE 10 MG TABS 1 tab po qd LORATADINE 79419680771 No Longer Active Vishal Hui MD Active VERAPAMIL HCL ER 180 MG CR-TABS 1 tab po bid VERAPAMIL HCL 90828434042 No Longer Active Vishal Hui MD Active MIRALAX POWD 1 capfull once daily POLYETHYLENE GLYCOL 3350 95795322646 No Longer Active Vishal Hui MD Active PREDNISONE 20 MG TABS 1 tab po qd PREDNISONE 54171398965 No Longer Active Renzo Thornton DO Active LEVOFLOXACIN 500 MG TABS 1 tab po qd LEVOFLOXACIN 82973801660 No Longer Active Renzo Thornton DO Active BUSPIRONE HCL 15 MG TABS 1 tab po TID BUSPIRONE HCL 69677353123 No Longer Active Renzo Thornton DO Active BENZTROPINE MESYLATE 1 MG TABS 1 tab po qd BENZTROPINE MESYLATE 50115912843 No Longer Active Renzo Thornton DO Active ATENOLOL 25 MG TABS 1 tab po qd ATENOLOL 63940139392 No Longer Active Renzo Thornton DO Active ESCITALOPRAM OXALATE 20 MG TABS 1 tab po qd ESCITALOPRAM OXALATE 71219061261 No Longer Active Renzo Thornton DO Active ADVAIR DISKUS 250-50 MCG/DOSE AEPB 1 puff BID FLUTICASONE-SALMETEROL 54514146548 No Longer Active Renzo Thornton DO Active PREDNISONE 20 MG TAB 2 tabs daily for 3 days, 1 tab daily for 3 days, 1/2 tab daily for 2 days PREDNISONE 48421209662 No Longer Active Vishal Hui MD Active CEFDINIR 300 MG CAPS by mouth twice a day CEFDINIR 12742712759 No Longer Active Vishal Hui MD Active LANSOPRAZOLE 30 MG CPDR 1 cap po qd LANSOPRAZOLE 75300122014 No Longer Active Vishal Hui MD Active TOPAMAX 25 MG TABS 1 tab po bid TOPIRAMATE 39328259289 Active Vishal Hui MD Active MINIPRESS 2 MG CAPS 1 cap po at night PRAZOSIN HCL 76123627612 Active Vishal Hui MD Active BACLOFEN 20 MG TABS 1 tab po tid BACLOFEN 97626056245 Active Vishal Hui MD Active ADVAIR DISKUS 250-50 MCG/DOSE AEPB 1 puff BID ADVAIR DISKUS 250-50 MCG/DOSE AEPB FLUTICASONE-SALMETEROL Inactive ESCITALOPRAM OXALATE 20 MG TABS 1 tab po qd ESCITALOPRAM OXALATE 20 MG TABS 027390 ESCITALOPRAM OXALATE Inactive ATENOLOL 25 MG TABS 1 tab po qd ATENOLOL 25 MG TABS 695969 ATENOLOL Inactive BENZTROPINE MESYLATE 1 MG TABS 1 tab po qd BENZTROPINE MESYLATE 1 MG TABS 738307 BENZTROPINE MESYLATE Inactive BUSPIRONE HCL 15 MG TABS 1 tab po TID BUSPIRONE HCL 15 MG TABS 079166 BUSPIRONE HCL Inactive LEVOFLOXACIN 500 MG TABS 1 tab po qd LEVOFLOXACIN 500 MG TABS 122954 LEVOFLOXACIN Inactive PREDNISONE 20 MG TABS 1 tab po qd PREDNISONE 20 MG TABS 881265 PREDNISONE Inactive MIRALAX POWD 1 capfull once daily MIRALAX POWD 203140 POLYETHYLENE GLYCOL 3350 Inactive VERAPAMIL HCL ER 180 MG CR-TABS 1 tab po bid VERAPAMIL HCL ER 180 MG CR-TABS VERAPAMIL HCL Inactive LORATADINE 10 MG TABS 1 tab po qd LORATADINE 10 MG TABS 467981 LORATADINE Inactive LYRICA 50 MG CAPS 1 tab po TID LYRICA 50 MG CAPS PREGABALIN Inactive ZALEPLON 10 MG CAPS 1 cap po every other night ZALEPLON 10 MG CAPS 341119 ZALEPLON Inactive SAPHRIS 5 MG SUBL 1 tab po qd SAPHRIS 5 MG SUBL ASENAPINE MALEATE Inactive TRAZODONE HCL 50 MG TABS 1/2 tab po qd prn for anxiety TRAZODONE HCL 50 MG TABS 274428 TRAZODONE HCL Inactive LATUDA 20 MG TABS Take one by mouth daily LATUDA 20 MG TABS LURASIDONE HCL Inactive LISINOPRIL 20 MG TABS 1 tab po qd LISINOPRIL 20 MG TABS 803562 LISINOPRIL Inactive SAPHRIS 10 MG SUBL 1 [...] twice a day CEFDINIR 300 MG CAPS 329966 CEFDINIR Inactive PREDNISONE 20 MG TAB 2 tabs daily for 3 days, 1 tab daily for 3 days, 1/2 tab daily for 2 days PREDNISONE 20 MG TAB 448763 PREDNISONE Inactive BACTRIM DS 800-160 MG TABS [...] Panel - Chemistry sodium, serum 141 mmol/L [phone] potassium, serum 4.3 mmol/L 3.5-5.2 chloride, serum [...] Panel - Chemistry sodium, serum 139 mmol/L 860-707 9881/12/31 potassium, serum 4.8 mmol/L 3.5-5.2 chloride, serum 106 mmol/L 98-107 carbon dioxide, venous blood 24.3 mmol/L 21.0-32.0 blood glucose 90 mg/dL 65-110 urea nitrogen, blood 16 mg/dL 7-18 creatinine, serum 1.00 mg/dL 0.60-1.30 alanine aminotransferase (SGPT), serum 41 U/L 12-78 aspartate aminotransferase (SGOT), serum 17 U/L 15-37 calcium, serum 8.6 mg/dL 8.5-10.1 bilirubin, serum, total 0.30 mg/dL 0.00-1.00 cholesterol, serum 108 mg/dL [phone]/12/31 triglyceride, serum, fasting 120 mg/dL 30-200 HDL [...] Negative Lab Report: UADIP W/MICRO, AUTO, [facility] [place] - Chemistry protein, total [...] semiquantitative 7.0 5.0-8.5 Lab Report: Varicella-Zoater Inga IgG,IgM/76942, HEP Be Antibody/556, RUB ... - Serology rubella antibody, serum, IgG 2.88 Encounters Code Encounter Date Provider Facility CPT-50847 Level 3 Est. Patient 14:49:50 CDT Vishal Hui MD [facility] CPT-99418 Level 4 Est. Patient 18:41:46 CDT Neeraj Collins MD [facility] CPT-13191 Level 4 Est. Patient 09:18:38 ORIENTATION & MOBILITY SPECIALIST Vishal Hui MD [facility]-53753 Level 3 Est. Patient 14:43:55 ORIENTATION & MOBILITY SPECIALIST Vishal Hui MD [facility] CPT-18155 Level 3 Est. Patient 15:26:33 ORIENTATION & MOBILITY SPECIALIST Sahara Rodriguez MD PhD [facility]-59969 Level 3 Est. Patient 10:32:14 ORIENTATION & MOBILITY SPECIALIST Vishal Hui MD [facility] CPT-28974 Level 3 Est. Patient 15:12:52 ORIENTATION & MOBILITY SPECIALIST Vishal Hui MD [facility] CPT-59205 Level 4 Est. Patient 09:19:27 CDT Vishal Hui MD [facility] CPT-95154 Level 3 Est. Patient 15:53:00 CDT Renzo Thornton [facility] CPT-33314 Level 3 Est. Patient 15:50:30 CDT Renzo Thornton [facility] CPT-30637 Level 3 Est. Patient 16:55:24 CDT Vishal Hui MD [facility] Procedures Code Procedure Name Date Entry Date Standard Description CPT-41814 Sono transvag pelvis non OB uterus ovaries cervix 16:36: 57 CDT CPT-23506 LS spine comp w obliq 09:50:55 ORIENTATION & MOBILITY SPECIALIST CPT-18440 Abd compl w upright 09:50:55 ORIENTATION & MOBILITY SPECIALIST CPT-J1100 Decadron 4mg (Dexamethasone) 15:51:24 ORIENTATION & MOBILITY SPECIALIST CPT-J1030 Depo Medrol 40 mg (Methyl Prednisolone Acetate) 15:51: 24 ORIENTATION & MOBILITY SPECIALIST CPT-52385 Abx/Therapy Injection 15:51:24 ORIENTATION & MOBILITY SPECIALIST CPT-J1100 Decadron 4mg (Dexamethasone) 15:26:33 ORIENTATION & MOBILITY SPECIALIST CPT-J1030 Depo Medrol 40 mg (Methyl Prednisolone Acetate) 15:26: 33 ORIENTATION & MOBILITY SPECIALIST CPT-69854 Sono retroperitoneal complete kidneys and bladder 17:15: 30 CDT CPT-57557 Abd compl w upright 16:09:25 CDT CPT-J1100 Decadron 8mg (Dexamethasone) 17:07:57 CDT CPT-38531 Abx/Therapy Injection 17:07:57 CDT CPT-J1100 Decadron 8mg (Dexamethasone) 16:55:24 CDT CPT-10832 Chest 2V Frontal and Lat 16:32:44 CDT
--- OUTSIDE RECORDS SUMMARY | 2016-11-05 00:56 | XMS REPORT | Clinical Summary ---
Author Author Admin, Dereck Organization [facility] Address Unknown Phone Unavailable Allergies, Adverse Reactions, [...] Ahmet Carbajal MD Generalized anxiety disorder Manager Food Beverage well woman exam V72.31 Active Suzan Boo [...] MD Health screening ICD-V70.0 Inactive Suzan Boo ARCHITECT MANAGER Sinus tachycardia ICD-427.89 Inactive Suzan Boo ARCHITECT MANAGER Smoker/tobacco use disorder-smoking cessation discussed ICD-305.1 Inactive [...] Hui MD Headache, atypical ICD-784.0 Inactive Albert Caldear MD Elevated blood glucose ICD-790.29 Inactive Vishal [...] SOLN 30mL oral daily for IBS-C LACTULOSE 10909699299 Active Suzan Boo APRN Active TESSALON PERLES 100 MG CAPS 1 three times a day as needed for cough BENZONATATE 47843874407 No Longer Active Suzan Boo APRN Active BACTRIM DS 800-160 MG TABS 1 twice a day SULFAMETHOXAZOLE-TRIMETHOPRIM 67980559267 No Longer Active Suzan Boo APRN Active DIFLUCAN 150 MG TABS 1 by mouth for yeast FLUCONAZOLE 23778524373 No Longer Active Suzan Boo APRN Active EQ NICOTINE 21 MG/24HR TRANS PT24 Apply daily to stop smoking NICOTINE 27220258794 No Longer Active Suzan Boo APRN Active PREDNISONE 10 MG TABS 2 daily for 5 days then 1 daily for 5 days PREDNISONE 30823280602 No Longer Active Suzan Boo APRN Active LEVAQUIN 500 MG TABS 1 daily for infection LEVOFLOXACIN 90448844823 No Longer Active Suzan Boo APRN Active TROPICAMIDE 0.5 % OPHTH SOLN 1 drop PRN eye spasms TROPICAMIDE 86123720866 No Longer Active Suzan Boo APRN Active PREDNISONE 20 MG TAB 1 tablet daily x 4 days PREDNISONE 68827510427 No Longer Active Suzan Boo APRN Active ACETAMINOPHEN-CODEINE 120-12 MG/5ML SOLN 5 ml by mouth every 4-6 hours if needed for cough ACETAMINOPHEN-CODEINE 16771524805 No Longer Active Suzan Boo APRN Active KEFLEX 500 MG CAP 1 po qid CEPHALEXIN 70059767481 No Longer Active Suzan Boo APRN Active FLOVENT HFA 110 MCG/ACT AERO 2 puffs inhaled b.i.d. FLUTICASONE PROPIONATE HFA 42021112049 Active Renzo Thornton DO Active RISPERDAL 4 MG ORAL TABS 1 tab at bedtime RISPERIDONE 45935317351 Active Samantha Rothman RMA Active ZOFRAN 4 MG TABS 1 po q6hr PRN Nausea ONDANSETRON HCL No Longer Active Suzan Boo APRN Active FLUTICASONE PROPIONATE 50 MCG/ACT SUSP 2 sprays each nostril daily before bed. FLUTICASONE PROPIONATE 62677991704 No Longer Active Suzan Boo APRN Active ASPIRIN 325 MG ORAL TABS 1 tab q.d ASPIRIN 79392940176 No Longer Active Suzan Boo APRN Active HALOPERIDOL 10 MG ORAL TABS 1 tab q.d HALOPERIDOL 82869966593 No Longer Active Suzan Boo APRN Active GUAIFENESIN-CODEINE 100-10 MG/5ML SYRP 5ml every 4 to 6 hours as needed for cough GUAIFENESIN-CODEINE 36872144145 No Longer Active Suzan Boo APRN Active ZITHROMAX Z-EARNEST 250 MG TABS 2 today and then 1 daily for 4 days AZITHROMYCIN 82117352232 No Longer Active Suzan Boo APRN Active CLONAZEPAM 1 MG ORAL TABS 1 twice a day and an additional 1 tablet every other day as needed for pseudoseizures or anxiety CLONAZEPAM 13619929704 Active Ahmet Carbajal MD Active HYDROCODONE-ACETAMINOPHEN 5-325 MG ORAL TABS 1 tab two times a day HYDROCODONE-ACETAMINOPHEN 66025097482 No Longer Active Ahmet Carbajal MD Active LAMICTAL 100 MG ORAL TABS 1 tab 2 times qd. LAMOTRIGINE 19430009534 Active Ahmet Carbajal MD Active PREDNISONE 20 MG TABS 2 daily for 5 days then 1 daily for 5 days PREDNISONE 37075404998 No Longer Active Ahmet Carbajal MD Active FLUTICASONE PROPIONATE 50 MCG/ACT SUSP 1 to 2 sprays each nostril daily for allergies FLUTICASONE PROPIONATE 58925617188 Active Tila Valenzuela Active BENADRYL 25 MG CAP 4 po at bedtime for insomnia DIPHENHYDRAMINE HCL 34793668672 No Longer Active Ahmet Carbajal MD Active ADVAIR DISKUS 250-50 MCG/DOSE INH AEPB 1 puff twice a day for asthma FLUTICASONE-SALMETEROL 80770756220 No Longer Active Ahmet Carbajal MD Active KLONOPIN 1 MG ORAL TABS 1 tab po TID CLONAZEPAM 35316137112 No Longer Active Ahmet Carbajal MD Active ABILIFY MAINTENA 400 MG IM SUSR 400mg injection every 26 days ARIPIPRAZOLE 07016645027 No Longer Active Ahmet Carbajal MD Active TRAMADOL HCL 50 MG TABS 1/2-1 tab TID PRN TRAMADOL HCL 71369664471 No Longer Active Ahmet Carbajal MD Active BACTRIM DS 800-160 MG TABS 1 twice a day SULFAMETHOXAZOLE- TRIMETHOPRIM 31676301971 No Longer Active Ahmet Carbajal MD Active PROAIR HFA 108 (90 BASE) MCG/ACT AERS 2 puffs four times a day as needed 2015 ALBUTEROL SULFATE 19713892156 Active Ahmet Carbajal MD Active MONISTAT 7 COMBO PACK WOODROW 100 & 2 MG-% (9GM) VAG KIT 1 applicatorful per vagina q pm x 7 MICONAZOLE NITRATE 53498197872 No Longer Active Ahmet Carbajal MD Active FLAGYL 500 MG TAB 1 tablet by mouth bid METRONIDAZOLE 15390574828 No Longer Active Ahmet Carbajal MD Active OXYCODONE HCL ER 10 MG ORAL T12A 1/2 tab by mouth every 4 hours prn OXYCODONE HCL 10087413480 No Longer Active Ahmet Carbajal MD Active METHYLPREDNISOLONE 4 MG ORAL TABS po daily METHYLPREDNISOLONE 34623666029 No Longer Active Ahmet Carbajal MD Active LEVOFLOXACIN 500 MG ORAL TABS po daily LEVOFLOXACIN 14867455336 No Longer Active Ahmet Carbajal MD Active VIIBRYD 10 MG ORAL TABS Take 1 tablet once a day VILAZODONE HCL 84670431741 No Longer Active Ahmet Carbajal MD Active TOPAMAX 50 MG ORAL TABS 1 tab twice daily TOPIRAMATE 75198147126 No Longer Active Ahmet Carbajal MD Active DICLOFENAC SODIUM 50 MG TBEC 1 tablet by mouth four times daily PRN Pain 2015 DICLOFENAC SODIUM 02929520078 No Longer Active Ahmet Carbajal MD Active ADZENYS XR-ODT 6.3 MG ORAL TBED 1 tab po daily for ADHD AMPHETAMINE 74744973042 No Longer Active Ahmet Carbajal MD Active CHANTIX 1 MG TABS 1 twice a day to help quit smoking VARENICLINE TARTRATE 19118847265 No Longer Active Dipika Burgos MD Active CHANTIX STARTING MONTH EARNEST 0.5 MG X 11 & 1 MG X 42 TABS take as directed 2015 VARENICLINE TARTRATE 64572255810 No Longer Active Dipika Burgos MD Active TESSALON PERLES 100 MG CAP 1 to 2 tablets by mouth 3 times daily as needed for cough BENZONATATE 69871898319 No Longer Active Luigi Martínez APRN Active IMITREX 50 MG ORAL TABS 0.5 po x 1 PRN Headache. May repeat dose x 1 in 2 hours if needed SUMATRIPTAN SUCCINATE 38778353140 Active Ahmet Carbajal MD Active HYDROCODONE-ACETAMINOPHEN 5-325 MG TABS 1 to 2 four times a day as needed for pain use until can be seen by specialist HYDROCODONE- ACETAMINOPHEN 38996871620 No Longer Active Vishal Hui MD Active PROAIR HFA 108 (90 BASE) MCG/ACT AERS 2 puffs four times a day as needed 2015 ALBUTEROL SULFATE 35691552074 No Longer Active Vishal Hui MD Active PREDNISONE 20 MG TABS 2 daily for 5 days then 1 daily for 5 days PREDNISONE 29140175936 No Longer Active Vishal Hui MD Active ZITHROMAX Z-EARNEST 250 MG TABS 2 today and then 1 daily for 4 days AZITHROMYCIN 86618079461 No Longer Active Vishal Hui MD Active DICLOFENAC POTASSIUM TABS Take 1 tablet twice a day (pt. is not sure of the dose.) DICLOFENAC POTASSIUM TABS 02890772749 No Longer Active Vishal Hui MD Active VERAPAMIL HCL ER 120 MG ORAL CR-TABS Take 1 tablet by mouth twice a day. VERAPAMIL HCL 62795455864 Active Vishal Hui MD Active FLAGYL 500 MG TAB 1 tablet by mouth bid METRONIDAZOLE 19283416787 No Longer Active Vishal Hui MD Active VALIUM 5 MG TAB Take 1-2 tablets daily DIAZEPAM 07106285696 No Longer Active Fabiola Johnson APRN Active METOPROLOL TARTRATE 25 MG ORAL TABS 1/2 tablet twice daily for heart rate and blood pressure METOPROLOL TARTRATE 44447618811 No Longer Active Fabiola Johnson APRN Active MIRALAX ORAL POWD 17GMS DAILY IN WATER POLYETHYLENE GLYCOL 3350 56569162880 Active TAMARA Casey Active MIRALAX PACK 1 po qd PRN Constipation POLYETHYLENE GLYCOL 3350 09569856165 No Longer Active Ahmet Carbajal MD Active MINIPRESS 2 MG CAPS 4 cap po at night PRAZOSIN HCL 71173547641 No Longer Active Ahmet Carbajal MD Active PIROXICAM 20 MG CAPS 1 cap po qd PRN Pain PIROXICAM 65770378498 No Longer Active Ahmet Carbajal MD Active TRAMADOL HCL 50 MG TABS 1-2 po TID PRN Pain TRAMADOL HCL 98052695163 No Longer Active Ahmet Carbajal MD Active METOPROLOL TARTRATE 50 MG TAB 1 po bid METOPROLOL TARTRATE 76998252225 No Longer Active Ahmet Carbajal MD Active ABILIFY 15 MG ORAL TABS 1 tab daily ARIPIPRAZOLE 14392618545 No Longer Active Ahmet Carbajal MD Active PROZAC 20 MG ORAL CAPS 1 tab daily FLUOXETINE HCL 59015458272 No Longer Active Ahmet Carbajal MD Active AMBIEN 5 MG ORAL TABS 1 tab at bedtime ZOLPIDEM TARTRATE 26631257314 No Longer Active Ahmet Carbajal MD Active PREDNISONE 20 MG TAB 2 tabs daily for 4 days, 1 tab daily for 4 days, 1/2 tab daily for 4 days PREDNISONE 51572537177 No Longer Active Ahmet Carbajal MD Active KEFLEX 500 MG CAP 1 po TID x 10 days CEPHALEXIN 29951485067 No Longer Active Vishal Hui MD Active SAPHRIS 5 MG SUBL 1 po bid ASENAPINE MALEATE 22847942214 No Longer Active Jillina Mauricio ARCHITECT MANAGER Active LATUDA 80 MG TABS Take one by mouth daily LURASIDONE HCL 89898217949 No Longer Active Jillina Fralebron ARCHITECT MANAGER Active AMLODIPINE BESYLATE 5 MG TABS 1 tablet by mouth daily AMLODIPINE BESYLATE 20992214580 No Longer Active Jillina Mauricio NORIEGA Active AMITRIPTYLINE HCL 100 MG TAB one at hs AMITRIPTYLINE HCL 09071883251 No Longer Active Vishal Hui MD Active TRAZODONE HCL 100 MG TAB take 1 at bedtime TRAZODONE HCL 38534678335 No Longer Active Vishal Hui MD Active VYVANSE 40 MG CAPS 1 daily, LISDEXAMFETAMINE DIMESYLATE 27857015287 No Longer Active Vishal Hui MD Active IBUPROFEN 600 MG TAB 1 po TID PRN IBUPROFEN 68227776826 No Longer Active Vishal Hui MD Active PROZAC 20 MG CAP Take one by mouth daily FLUOXETINE HCL 64503948699 No Longer Active Vishal Hui MD Active BACTRIM DS 800-160 MG TABS 1 pill by mouth twice daily SULFAMETHOXAZOLE-TRIMETHOPRIM 04757065180 No Longer Active Sahara Rodriguez MD PhD Active DIFLUCAN 150 MG TAB 1 tablet by mouth daily FLUCONAZOLE 64228850459 No Longer Active Vishal Hui MD Active TIZANIDINE HCL 4 MG TABS 1 po q6hr PRN Muscle Spasm/Back Pain TIZANIDINE HCL 66935451984 Active Vishal Hui MD Active CLINDAMYCIN HCL 150 MG CAPS 1 four times a day CLINDAMYCIN HCL 01905877918 No Longer Active Neeraj Collins MD Active KEFLEX 500 MG ORAL CAPS 1 cap QID by mouth CEPHALEXIN 21704712172 No Longer Active Neeraj Collins MD Active DIFLUCAN 150 MG TABS 1 pill every other day x 2 doses FLUCONAZOLE 74496415371 No Longer Active Sahara Rodriguez MD PhD Active MELATONIN 3 MG CAPS 2 po q hs MELATONIN 08685284742 No Longer Active Sahara Rodriguez MD PhD Active MULTIVITAMINS CAPS Take one by mouth daily MULTIPLE VITAMIN 37848136606 No Longer Active Sahara Rodriguez MD PhD Active BACTRIM DS 800-160 MG TAB 1 tab by mouth twice daily TRIMETHOPRIM-SULFAMETHOXAZOLE 53673301628 No Longer Active Sahara Rodriguez MD PhD Active [facility] PROBIOTIC ORAL CHEW 2 daily po PROBIOTIC PRODUCT 49058625765 No Longer Active Sahara Rodriguez MD PhD Active BACTRIM DS 800-160 MG TABS 1 po BID x 7 days SULFAMETHOXAZOLE-TRIMETHOPRIM 55126001730 No Longer Active Vishal Hui MD Active CHANTIX STARTING MONTH EARNEST 0.5 MG X 11 & 1 MG X 42 TABS 0.5mg daily for 3 days , then 0.5mg BID for 4 days, then 1mg BID VARENICLINE TARTRATE 60051630406 No Longer Active TAMARA Gray Active VERAPAMIL HCL CR 120 MG TAB CR 1 po bid VERAPAMIL HCL 58918900103 No Longer Active Vishal Hui MD Active METOPROLOL SUCCINATE 50 MG TB24 1 tablet by mouth daily METOPROLOL SUCCINATE 77135973872 No Longer Active Vishal Hui MD Active SAPHRIS 10 MG SUBL 1 tab po bid ASENAPINE MALEATE 73655950200 No Longer Active Vishal Hui MD Active LISINOPRIL 20 MG TABS 1 tab po qd LISINOPRIL 35829197642 No Longer Active Vishal Hui MD Active LATUDA 20 MG TABS Take one by mouth daily LURASIDONE HCL 46642219759 No Longer Active Vishal Hui MD Active TRAZODONE HCL 50 MG TABS 1/2 tab po qd prn for anxiety TRAZODONE HCL 12094592708 No Longer Active Vishal Hui MD Active OMEPRAZOLE 20 MG TBEC 1 po q a.m. 30min prior to first food intake OMEPRAZOLE 94465573961 Active TAMARA Casey Active RANITIDINE HCL 150 MG CAPS 1 twice a day RANITIDINE HCL 31035685098 Active Jilljanee Martínez APRN Active LINZESS 290 MCG CAPS Take one by mouth daily LINACLOTIDE 16557791751 No Longer Active Vishal Hui MD Active SAPHRIS 5 MG SUBL 1 tab po qd ASENAPINE MALEATE 71484675036 No Longer Active Vishal Hui MD Active ZALEPLON 10 MG CAPS 1 cap po every other night ZALEPLON 99019223624 No Longer Active Vishal Hui MD Active LYRICA 50 MG CAPS 1 tab po TID PREGABALIN 38429801314 No Longer Active Vishal Hui MD Active LORATADINE 10 MG TABS 1 tab po qd LORATADINE 02631342677 No Longer Active Vishal Hui MD Active VERAPAMIL HCL ER 180 MG CR-TABS 1 tab po bid VERAPAMIL HCL 36198657059 No Longer Active Vishal Hui MD Active MIRALAX POWD 1 capfull once daily POLYETHYLENE GLYCOL 3350 73378204381 No Longer Active Vishal Hui MD Active PREDNISONE 20 MG TABS 1 tab po qd PREDNISONE 07725254876 No Longer Active Renzo Thornton DO Active LEVOFLOXACIN 500 MG TABS 1 tab po qd LEVOFLOXACIN 44202190495 No Longer Active Renzo Thornton DO Active BUSPIRONE HCL 15 MG TABS 1 tab po TID BUSPIRONE HCL 68690751837 No Longer Active Renzo Thornton DO Active BENZTROPINE MESYLATE 1 MG TABS 1 tab po qd BENZTROPINE MESYLATE 75839866920 No Longer Active Renzo Thornton DO Active ATENOLOL 25 MG TABS 1 tab po qd ATENOLOL 17308723152 No Longer Active Renzo Thornton DO Active ESCITALOPRAM OXALATE 20 MG TABS 1 tab po qd ESCITALOPRAM OXALATE 50422174796 No Longer Active Renzo Thornton DO Active ADVAIR DISKUS 250-50 MCG/DOSE AEPB 1 puff BID FLUTICASONE-SALMETEROL 15775848315 No Longer Active Renzo Thornton DO Active PREDNISONE 20 MG TAB 2 tabs daily for 3 days, 1 tab daily for 3 days, 1/2 tab daily for 2 days PREDNISONE 91785279713 No Longer Active Vishal Hui MD Active CEFDINIR 300 MG CAPS by mouth twice a day CEFDINIR 16348492863 No Longer Active Vishal Hui MD Active LANSOPRAZOLE 30 MG CPDR 1 cap po qd LANSOPRAZOLE 94783667924 No Longer Active Vishal Hui MD Active BACLOFEN 20 MG TABS 1 tab po tid BACLOFEN 31209675957 No Longer Active Vishal Hui MD Active ADVAIR DISKUS 250-50 MCG/DOSE AEPB 1 puff BID ADVAIR DISKUS 250-50 MCG/DOSE AEPB FLUTICASONE-SALMETEROL Inactive ESCITALOPRAM OXALATE 20 MG TABS 1 tab po qd ESCITALOPRAM OXALATE 20 MG TABS 164958 ESCITALOPRAM OXALATE Inactive ATENOLOL 25 MG TABS 1 tab po qd ATENOLOL 25 MG TABS 357809 ATENOLOL Inactive BENZTROPINE MESYLATE 1 MG TABS 1 tab po qd BENZTROPINE MESYLATE 1 MG TABS 782795 BENZTROPINE MESYLATE Inactive BUSPIRONE HCL 15 MG TABS 1 tab po TID BUSPIRONE HCL 15 MG TABS 011966 BUSPIRONE HCL Inactive LEVOFLOXACIN 500 MG TABS 1 tab po qd LEVOFLOXACIN 500 MG TABS 343753 LEVOFLOXACIN Inactive PREDNISONE 20 MG TABS 1 tab po qd PREDNISONE 20 MG TABS 842779 PREDNISONE Inactive MIRALAX POWD 1 capfull once daily MIRALAX POWD 461220 POLYETHYLENE GLYCOL 3350 Inactive VERAPAMIL HCL ER 180 MG CR-TABS 1 tab po bid VERAPAMIL HCL ER 180 MG CR-TABS VERAPAMIL HCL Inactive LORATADINE 10 MG TABS 1 tab po qd LORATADINE 10 MG TABS 542500 LORATADINE Inactive LYRICA 50 MG CAPS 1 tab po TID LYRICA 50 MG CAPS PREGABALIN Inactive ZALEPLON 10 MG CAPS 1 cap po every other night ZALEPLON 10 MG CAPS 065617 ZALEPLON Inactive SAPHRIS 5 MG SUBL 1 tab po qd SAPHRIS 5 MG SUBL ASENAPINE MALEATE Inactive TRAZODONE HCL 50 MG TABS 1/2 tab po qd prn for anxiety TRAZODONE HCL 50 MG TABS 385647 TRAZODONE HCL Inactive LATUDA 20 MG TABS Take one by mouth daily LATUDA 20 MG TABS LURASIDONE HCL Inactive LISINOPRIL 20 MG TABS 1 tab po qd LISINOPRIL 20 MG TABS 925523 LISINOPRIL Inactive SAPHRIS 10 MG SUBL 1 [...] twice daily BACTRIM DS 800-160 MG TAB 193135 TRIMETHOPRIM-SULFAMETHOXAZOLE Inactive MULTIVITAMINS CAPS Take one by mouth daily MULTIVITAMINS CAPS MULTIPLE VITAMIN Inactive MELATONIN 3 MG CAPS 2 po q hs MELATONIN 3 MG CAPS 569019 MELATONIN Inactive KEFLEX 500 MG ORAL CAPS 1 cap QID by mouth KEFLEX 500 MG ORAL CAPS 883039 CEPHALEXIN Inactive CLINDAMYCIN HCL 150 MG CAPS 1 four times a day CLINDAMYCIN HCL 150 MG CAPS 236361 CLINDAMYCIN HCL Inactive DIFLUCAN 150 MG TAB 1 tablet by mouth daily DIFLUCAN 150 MG TAB 867320 FLUCONAZOLE Inactive PROZAC 20 MG CAP Take one by mouth daily PROZAC 20 MG CAP 858468 FLUOXETINE HCL Inactive IBUPROFEN 600 MG TAB 1 po TID PRN IBUPROFEN 600 MG TAB 578302 IBUPROFEN Inactive VYVANSE 40 MG CAPS 1 daily, VYVANSE 40 MG CAPS LISDEXAMFETAMINE DIMESYLATE Inactive TRAZODONE HCL 100 MG TAB take 1 at bedtime TRAZODONE HCL 100 MG TAB 516014 TRAZODONE HCL Inactive AMITRIPTYLINE HCL 100 MG TAB one at hs AMITRIPTYLINE HCL 100 MG TAB 876991 AMITRIPTYLINE HCL Inactive AMLODIPINE BESYLATE 5 MG TABS 1 tablet by mouth daily AMLODIPINE BESYLATE 5 MG TABS 061819 AMLODIPINE BESYLATE Inactive LATUDA 80 MG TABS Take one by mouth daily LATUDA 80 MG TABS LURASIDONE HCL Inactive SAPHRIS 5 MG SUBL 1 po bid SAPHRIS 5 MG SUBL ASENAPINE MALEATE Inactive PREDNISONE 20 MG TAB 2 tabs daily for 4 days, 1 tab daily for 4 days, 1/2 tab daily for 4 days PREDNISONE 20 MG TAB 915310 PREDNISONE Inactive AMBIEN 5 MG ORAL TABS 1 tab at bedtime AMBIEN 5 MG ORAL TABS 182710 ZOLPIDEM TARTRATE Inactive PROZAC 20 MG ORAL CAPS 1 tab daily PROZAC 20 MG ORAL CAPS 778349 FLUOXETINE HCL Inactive ABILIFY 15 MG ORAL TABS 1 tab daily ABILIFY 15 MG ORAL TABS 514986 ARIPIPRAZOLE Inactive METOPROLOL TARTRATE 50 MG TAB 1 po bid METOPROLOL TARTRATE 50 MG TAB 740610 METOPROLOL TARTRATE Inactive TRAMADOL HCL 50 MG TABS 1-2 po TID PRN Pain TRAMADOL HCL 50 MG TABS 502740 TRAMADOL HCL Inactive PIROXICAM 20 MG CAPS 1 cap po qd PRN Pain PIROXICAM 20 MG CAPS 768083 PIROXICAM Inactive MINIPRESS 2 MG CAPS 4 cap po at night MINIPRESS 2 MG CAPS 522921 PRAZOSIN HCL Inactive MIRALAX PACK 1 po qd PRN Constipation MIRALAX PACK 537539 POLYETHYLENE GLYCOL 3350 Inactive METOPROLOL TARTRATE 25 MG ORAL TABS 1/2 tablet twice daily for heart rate and blood pressure METOPROLOL TARTRATE 25 MG ORAL TABS 348023 METOPROLOL TARTRATE Inactive VALIUM 5 MG TAB Take 1-2 tablets daily VALIUM 5 MG TAB 957386 DIAZEPAM Inactive FLAGYL 500 MG TAB 1 tablet by mouth bid FLAGYL 500 MG TAB 398930 METRONIDAZOLE Inactive DICLOFENAC POTASSIUM TABS Take 1 tablet twice a day (pt. is not sure of the dose.) DICLOFENAC POTASSIUM TABS DICLOFENAC POTASSIUM TABS Inactive ZITHROMAX Z-EARNEST 250 MG TABS 2 today and then 1 daily for 4 days ZITHROMAX Z-EARNEST 250 MG TABS 5904901 AZITHROMYCIN Inactive PREDNISONE 20 MG TABS 2 daily for 5 days then 1 daily for 5 days PREDNISONE 20 MG TABS 163740 PREDNISONE Inactive PROAIR HFA 108 (90 BASE) MCG/ACT AERS 2 puffs four times a day as needed 2015 PROAIR HFA 108 (90 BASE) MCG/ACT AERS ALBUTEROL SULFATE Inactive HYDROCODONE-ACETAMINOPHEN 5-325 MG TABS 1 to 2 four times a day as needed for pain use until can be seen by specialist HYDROCODONE- ACETAMINOPHEN 5-325 MG TABS 136730 HYDROCODONE-ACETAMINOPHEN Inactive TESSALON PERLES 100 MG CAP 1 to 2 tablets by mouth 3 times daily as needed for cough TESSALON PERLES 100 MG CAP 060901 BENZONATATE Inactive CHANTIX STARTING MONTH EARNEST 0.5 [...] Pain 2015 DICLOFENAC SODIUM 50 MG TBEC 702566 DICLOFENAC SODIUM Inactive TOPAMAX 50 MG ORAL TABS 1 tab twice daily TOPAMAX 50 MG ORAL TABS 550459 TOPIRAMATE Inactive VIIBRYD 10 MG ORAL TABS Take 1 tablet once a day VIIBRYD 10 MG ORAL TABS VILAZODONE HCL Inactive LEVOFLOXACIN 500 MG ORAL TABS po daily LEVOFLOXACIN 500 MG ORAL TABS 538986 LEVOFLOXACIN Inactive METHYLPREDNISOLONE 4 MG ORAL TABS po daily METHYLPREDNISOLONE 4 MG ORAL TABS 531533 METHYLPREDNISOLONE Inactive OXYCODONE HCL ER 10 MG ORAL T12A 1/2 tab by mouth every 4 hours prn OXYCODONE HCL ER 10 MG ORAL T12A OXYCODONE HCL Inactive FLAGYL 500 MG TAB 1 tablet by mouth bid FLAGYL 500 MG TAB 453357 METRONIDAZOLE Inactive MONISTAT 7 COMBO PACK WOODROW 100 & 2 MG-% (9GM) VAG KIT 1 applicatorful per vagina q pm x 7 MONISTAT 7 COMBO PACK WOODROW 100 & 2 MG-% (9GM) VAG KIT MICONAZOLE NITRATE Inactive BACTRIM DS 800-160 MG TABS 1 twice a day BACTRIM DS 800-160 MG TABS 790267 SULFAMETHOXAZOLE-TRIMETHOPRIM Inactive TRAMADOL HCL 50 MG TABS 1/2-1 tab TID PRN TRAMADOL HCL 50 MG TABS 421677 TRAMADOL HCL Inactive ABILIFY MAINTENA 400 MG IM SUSR 400mg injection every 26 days ABILIFY MAINTENA 400 MG IM SUSR ARIPIPRAZOLE Inactive KLONOPIN 1 MG ORAL TABS 1 tab po TID KLONOPIN 1 MG ORAL TABS 251991 CLONAZEPAM Inactive ADVAIR DISKUS 250-50 MCG/DOSE INH AEPB 1 puff twice a day for asthma ADVAIR DISKUS 250-50 MCG/DOSE INH AEPB FLUTICASONE- SALMETEROL Inactive BENADRYL 25 MG CAP 4 po at bedtime for insomnia BENADRYL 25 MG CAP DIPHENHYDRAMINE HCL Inactive PREDNISONE 20 MG TABS 2 daily for 5 days then 1 daily for 5 days PREDNISONE 20 MG TABS 594001 PREDNISONE Inactive HYDROCODONE-ACETAMINOPHEN 5-325 MG ORAL TABS 1 tab two times a day HYDROCODONE-ACETAMINOPHEN 5-325 MG ORAL TABS 969305 HYDROCODONE-ACETAMINOPHEN Inactive ZITHROMAX Z-EARNEST 250 MG TABS 2 today and then 1 daily for 4 days ZITHROMAX Z-EARNEST 250 MG TABS 5827202 AZITHROMYCIN Inactive GUAIFENESIN-CODEINE 100-10 MG/5ML SYRP 5ml every 4 to 6 hours as needed for cough GUAIFENESIN-CODEINE 100-10 MG/5ML SYRP 878083 GUAIFENESIN-CODEINE Inactive HALOPERIDOL 10 MG ORAL TABS 1 tab q.d HALOPERIDOL 10 MG ORAL TABS 579281 HALOPERIDOL Inactive ASPIRIN 325 MG ORAL TABS 1 tab q.d ASPIRIN 325 MG ORAL TABS 569787 ASPIRIN Inactive FLUTICASONE PROPIONATE 50 MCG/ACT SUSP 2 sprays each nostril daily before bed. FLUTICASONE PROPIONATE 50 MCG/ACT SUSP 4878344 FLUTICASONE PROPIONATE Inactive ZOFRAN 4 MG TABS 1 po q6hr PRN Nausea ZOFRAN 4 MG TABS 119503 ONDANSETRON HCL Inactive KEFLEX 500 MG CAP 1 po qid KEFLEX 500 MG CAP 020855 CEPHALEXIN Inactive ACETAMINOPHEN-CODEINE 120-12 MG/5ML SOLN 5 ml by mouth every 4-6 hours if needed for cough ACETAMINOPHEN-CODEINE 120-12 MG/5ML SOLN 788775 ACETAMINOPHEN-CODEINE Inactive PREDNISONE 20 MG TAB 1 tablet daily x 4 days PREDNISONE 20 MG TAB 266379 PREDNISONE Inactive TROPICAMIDE 0.5 % OPHTH SOLN 1 drop PRN eye spasms TROPICAMIDE 0.5 % OPHTH SOLN 837370 TROPICAMIDE Inactive LEVAQUIN 500 MG TABS 1 daily for infection LEVAQUIN 500 MG TABS 470850 LEVOFLOXACIN Inactive PREDNISONE 10 MG TABS 2 daily for 5 days then 1 daily for 5 days PREDNISONE 10 MG TABS 261680 PREDNISONE Inactive EQ NICOTINE 21 MG/24HR TRANS [...] for cough TESSALON PERLES 100 MG CAPS 392842 BENZONATATE Inactive CEFDINIR 300 MG CAPS by mouth twice a day CEFDINIR 300 MG CAPS 526755 CEFDINIR Inactive PREDNISONE 20 MG TAB 2 tabs daily for 3 days, 1 tab daily for 3 days, 1/2 tab daily for 2 days PREDNISONE 20 MG TAB 055200 PREDNISONE Inactive BACTRIM DS 800-160 MG TABS [...] x 10 days KEFLEX 500 MG CAP 985058 CEPHALEXIN Inactive Advance Directives Directive Description Start [...] % 11.0-15.0 platelet count 443 THOUSAND/UL 10*3/mm3 028-438 9577/03/01 mean platelet volume 8.2 fL 7.5-12.5 leukocyte [...] % 11.0-15.0 platelet count 349 THOUSAND/UL 10*3/mm3 706-463 1182/04/12 mean platelet volume 8.4 fL 7.5-12.5 Lab [...] 369 10^3/MM^3 10*3/mm3 142-424 Lab Report: Chlamydia/GC APTIMA/[id number] - Lab chlamydia DNA probe NOT DETECTED NOT DETECTED Lab Report: Chlamydia/GC APTIMA/[id number] - Microbiology Neisseria gonorrhoeae DNA probe NOT DETECTED NOT DETECTED Lab Report: Chlamydia/GC APTIMA/[id number], Urinalysis, Complete, with Reflex ... - Lab chlamydia DNA probe NOT DETECTED NOT DETECTED Lab Report: Chlamydia/GC APTIMA/[id number], Urinalysis, Complete, with Reflex ... - Microbiology Neisseria gonorrhoeae DNA probe NOT DETECTED NOT DETECTED Lab Report: Chlamydia/GC APTIMA/[id number], Urinalysis, Complete, with Reflex ... - Urinalysis microalbumin/total urine volume 2 mg/L Units converted. See lab report for original value. microalbumin/creatinine ratio, urine 9 MCG/MG CREAT mg/L <30 Lab Report: Comp. Metabolic Panel - Chemistry sodium, serum 142 mmol/L 121-396 2239/06/08 carbon dioxide, venous blood 27.6 mmol/L 21.0-32.0 potassium, serum 4.0 mmol/L 3.5-5.2 chloride, serum 105 mmol/L 98-107 blood glucose 95 mg/dL 65-110 urea nitrogen, blood 8 mg/dL 7-18 creatinine, serum 0.75 mg/dL 0.55-1.30 alanine aminotransferase (SGPT), serum 49 U/L 12-78 aspartate aminotransferase (SGOT), serum 28 U/L 15-37 calcium, serum 9.4 mg/dL 8.5-10.1 bilirubin, serum, total 0.30 mg/dL 0.00-1.00 sodium, serum 140 mmol/L 364-387 3622/08/08 carbon dioxide, venous blood 33.7 mmol/L 21.0-32.0 [...] mg/dL Encounters Code Encounter Date Provider Facility CPT-25442 Level 3 Est. Patient 10:00:25 CDT uSzan Boo [facility] CPT-71013 Level 3 Est. Patient 10:29:30 CDT Suzan Boo [facility] CPT-84180 Level 3 Est. Patient 11:04:38 CDT Renzo Thornton [facility] CPT-38826 Level 3 Est. Patient 11:15:58 MANAGER ASSEMBLY Renzo Thornton [facility] CPT-23287 Level 3 Est. Patient 15:28:23 MANAGER ASSEMBLY Suzan Boo [facility] CPT-62239 Level 4 Est. Patient 10:20:54 MANAGER ASSEMBLY Suzan Boo [facility] CPT-84566 Level 3 Est. Patient 11:47:37 MANAGER ASSEMBLY Ahmet Carbajal MD [facility] CPT-57998 Level 3 Est. Patient 10:40:11 MANAGER ASSEMBLY Ahmet Carbajal MD [facility] CPT-86802 Level 3 Est. Patient 15:07:06 MANAGER ASSEMBLY Neeraj Collins MD [facility] CPT-62922 Level 4 Est. Patient 14:45:00 MANAGER ASSEMBLY Ahmet Carbajal MD [facility] CPT-03331 Level 3 Est. Patient 13:59:59 CDT Luigi Martínez [facility] CPT-09447 Level 3 Est. Patient 18:18:53 CDT Neeraj Collins MD [facility] CPT-71919 Level 3 Est. Patient 15:50:44 CDT Vishal Hui MD [facility] CPT-05541 Level 3 Est. Patient 11:36:17 CDT Ahmet Carbajal MD [facility] CPT-60688 Level 3 Est. Patient 13:29:16 CDT Vishal Hui MD [facility] CPT-28599 Level 3 Est. Patient 14:27:52 CDT Neeraj Collins MD [facility] CPT-69106 Level 3 Est. Patient 08:56:03 CDT Luigi Martínez [facility] CPT-86008 Level 4 Est. Patient 12:11:48 CDT Fabiola Johnson [facility] CPT-76316 Level 3 New Patient 16:53:37 CDT Albert Caldera MD [facility] CPT-04715 Level 3 Est. Patient 11:25:49 CDT Renzo Thornton DO [facility] CPT-78308 Level 3 Est. Patient 15:22:01 CDT Ahmet Carbajal MD [facility] CPT-45507 Level 4 Est. Patient 09:00:51 MANAGER ASSEMBLY Vishal Hui MD [facility] CPT-70205 Level 3 Est. Patient 11:37:33 MANAGER ASSEMBLY Vishal Hui MD [facility] CPT-15965 Level 3 Est. Patient 08:41:09 MANAGER ASSEMBLY Vishal Hui MD [facility] CPT-79444 Level 4 Est. Patient 10:19:35 MANAGER ASSEMBLY Vishal Hui MD [facility] CPT-40221 Level 3 Est. Patient 13:35:45 CDT Vishal Hui MD [facility] CPT-52396 Level 4 Est. Patient 10:08:37 CDT Vishal Hui MD [facility] CPT-54494 Level 3 Est. Patient 11:22:10 CDT Vishal Hui MD [facility] CPT-91902 Level 3 Est. Patient 11:03:32 CDT Sahara Rodriguez MD [facility]-22640 Level 3 Est. Patient 09:41:35 CDT Vishal Hui MD [facility] CPT-43950 Level 3 Est. Patient 12:00:41 CDT Neeraj Collins MD [facility]-20257 Level 3 Est. Patient 09:16:24 CDT Vishal Hui MD [facility] CPT-48149 Level 4 Est. Patient 13:59:09 CDT Neeraj Collins MD [facility] CPT-95610 Level 3 Est. Patient 15:19:43 CDT Renzo Thornton DO [facility] CPT-35731 Level 3 Est. Patient 18:10:26 CDT Sahara Rodriguez MD [facility]-04125 Level 3 Est. Patient 14:49:50 CDT Vishal Hui MD [facility] CPT-94362 Level 4 Est. Patient 18:41:46 CDT Neeraj Collins MD [facility] CPT-32630 Level 4 Est. Patient 09:18:38 MANAGER ASSEMBLY Vishal Hui MD [facility] CPT-85955 Level 3 Est. Patient 14:43:55 MANAGER ASSEMBLY Vishal Hui MD [facility] CPT-19938 Level 3 Est. Patient 15:26:33 MANAGER ASSEMBLY Sahara Rodriguez MD PhD [facility] CPT-46865 Level 3 Est. Patient 10:32:14 MANAGER ASSEMBLY Vishal Hui MD [facility] CPT-46814 Level 3 Est. Patient 15:12:52 MANAGER ASSEMBLY Vishal Hui MD [facility] CPT-06940 Level 4 Est. Patient 09:19:27 CDT Vishal Hui MD [facility] CPT-74348 Level 3 Est. Patient 15:53:00 CDT Renzo Thornton [facility] CPT-27297 Level 3 Est. Patient 15:50:30 CDT Renzo Thornton [facility] CPT-46279 Level 3 Est. Patient 16:55:24 CDT Vishal Hui MD [facility] Procedures Code Procedure Name Date Entry Date Standard Description CPT-47067 Venipuncture Draw Fee 08:41:12 CDT CPT-29164 Abd compl w upright - XRAY USE ONLY 10:27:59 CDT 06/28 CPT-00691 Smoking Cessation counseling 11:15:58 MANAGER ASSEMBLY CPT-G0439 [facility] Annual Wellness Exam 09:30:58 MANAGER ASSEMBLY CPT-63079 TSH - LAB USE ONLY 08:50:26 MANAGER ASSEMBLY CPT-56650 CBC - LAB USE ONLY 08:50:26 MANAGER ASSEMBLY CPT-31035 Venipuncture Draw Fee 08:50:26 MANAGER ASSEMBLY CPT-58782 Abx/Therapy Injection 17:34:30 MANAGER ASSEMBLY CPT-35444 Nexplanon Removal with Reinsertion 14:09:32 CDT CPT-J7307 Nexplanon (Implant) 14:09:32 CDT CPT-OV Office Visit 14:09:32 CDT CPT-15090 UA w micro - LAB USE ONLY 16:21:13 CDT CPT-26129 [place] Mount - LAB USE ONLY 16:21:13 CDT CPT-46331 First Vx - Ix admin for Medicare patients 14:37:47 CDT CPT-14096 Fluzone Preservative Free Intramuscular Suspension 14:37 :47 CDT CPT-77480 Abx/Therapy Injection 13:54:22 CDT CPT-59303 Abx/Therapy Injection 08:47:09 CDT CPT-24570 Abx/Therapy Injection 13:29:56 CDT CPT-86718 Abx/Therapy Injection 08:36:16 CDT CPT-22571 [place] - LAB USE ONLY 17:44:58 CDT CPT-25042 UA w micro - LAB USE ONLY 17:44:58 CDT CPT-71109 CMP - LAB USE ONLY 17:44:58 CDT CPT-52427 Venipuncture Draw Fee 17:44:58 CDT CPT-84576 Cervical Min 4V - XRAY USE ONLY 09:01:40 CDT CPT-33609 Chest 2V Frontal and Lat - XRAY USE ONLY 11:06:31 CDT CPT-83918 EKG Trac and Interp - XRAY USE ONLY 11:31:43 CDT 08/26 CPT-J3420 Vitamin B12 1000mcg (Cyanocobalamin) 08:10:26 MANAGER ASSEMBLY 04/12 CPT-09321 Abx/Therapy Injection 08:10:26 MANAGER ASSEMBLY CPT-G0438 Initial Annual Wellness Exam 19:01:01 MANAGER ASSEMBLY CPT-J3420 Vitamin B12 1000mcg (Cyanocobalamin) 16:57:46 CDT 08/14 CPT-98566 Recombivax HB Injection Suspension 5 MCG/0.5ML 08:37:50 MANAGER ASSEMBLY CPT-51893 Immunization Single Admin 08:37:50 MANAGER ASSEMBLY CPT-J3420 Vitamin B12 1000mcg (Cyanocobalamin) 08:32:16 MANAGER ASSEMBLY 03/11 CPT-85182 Abx/Therapy Injection 08:32:16 MANAGER ASSEMBLY CPT-85574 Chest 2V Frontal and Lat 11:46:38 MANAGER ASSEMBLY CPT-20578 Venipuncture Draw Fee 09:12:45 MANAGER ASSEMBLY CPT-J3420 Vitamin B12 1000mcg (Cyanocobalamin) 08:50:15 MANAGER ASSEMBLY 02/08 CPT-85251 Abx/Therapy Injection 08:50:15 MANAGER ASSEMBLY CPT-Cryo Cryotherapy 10:19:35 MANAGER ASSEMBLY CPT-000 Give Appropriate Flu Vaccine 09:22:16 CDT CPT-J3420 Vitamin B12 1000mcg (Cyanocobalamin) 19:08:57 CDT 01/11 CPT-10668 Abx/Therapy Injection 19:08:57 CDT CPT-J3420 Vitamin B12 1000mcg (Cyanocobalamin) 08:19:08 CDT 12/11 CPT-97037 Abx/Therapy Injection 08:19:08 CDT CPT-J3420 Vitamin B12 1000mcg (Cyanocobalamin) 14:48:00 CDT 11/09 CPT-53700 Abx/Therapy Injection 14:47:59 CDT CPT-J3420 Vitamin B12 1000mcg (Cyanocobalamin) 08:34:04 CDT 10/09 CPT-77607 Abx/Therapy Injection 08:34:04 CDT CPT-J3420 Vitamin B12 1000mcg (Cyanocobalamin) 09:18:52 CDT 09/11 CPT-95886 Abx/Therapy Injection 09:18:52 CDT CPT-J3420 Vitamin B12 1000mcg (Cyanocobalamin) 08:35:44 CDT 09/04 CPT-65615 Abx/Therapy Injection 08:35:44 CDT CPT-44527 Immunization Single Admin 11:07:16 CDT CPT-38118 Hepatitis B adult IM 11:07:16 CDT CPT-J3420 Vitamin B12 1000mcg (Cyanocobalamin) 11:00:49 CDT 08/28 CPT-J1040 Depo Medrol 80 mg (Methyl Prednisolone Acetate) 11:00: 49 CDT CPT-63587 Abx/Therapy Injection 11:00:49 CDT CPT-J1040 Depo Medrol 80 mg (Methyl Prednisolone Acetate) 09:16: 23 CDT CPT-J3420 Vitamin B12 1000mcg (Cyanocobalamin) 08:27:05 CDT 08/20 CPT-56908 Abx/Therapy Injection 08:27:05 CDT CPT-33390 Recombivax HB Injection Suspension 5 MCG/0.5ML 10:00:41 CDT CPT-71399 Administration single or combination vaccine inc oral 10 :00:41 CDT CPT-00517 Sono transvag pelvis non OB uterus ovaries cervix 16:36: 57 CDT CPT-90071 LS spine comp w obliq 09:50:55 MANAGER ASSEMBLY CPT-22771 Abd compl w upright 09:50:55 MANAGER ASSEMBLY CPT-J1100 Decadron 4mg (Dexamethasone) 15:51:24 MANAGER ASSEMBLY CPT-J1030 Depo Medrol 40 mg (Methyl Prednisolone Acetate) 15:51: 24 MANAGER ASSEMBLY CPT-70611 Abx/Therapy Injection 15:51:24 MANAGER ASSEMBLY CPT-J1100 Decadron 4mg (Dexamethasone) 15:26:33 MANAGER ASSEMBLY CPT-J1030 Depo Medrol 40 mg (Methyl Prednisolone Acetate) 15:26: 33 MANAGER ASSEMBLY CPT-92063 Sono retroperitoneal complete kidneys and bladder 17:15: 30 CDT CPT-10056 Abd compl w upright 16:09:25 CDT CPT-J1100 Decadron 8mg (Dexamethasone) 17:07:57 CDT CPT-93160 Abx/Therapy Injection 17:07:57 CDT CPT-J1100 Decadron 8mg (Dexamethasone) 16:55:24 CDT CPT-27446 Chest 2V Frontal and Lat 16:32:44 CDT
--- OUTSIDE RECORDS SUMMARY | 2016-11-05 00:58 | XMS REPORT | Clinical Summary ---
Author Author Admin, Dereck Organization [facility] Address Unknown Phone Unavailable Allergies, Adverse Reactions, Alerts Allergy Name Reaction Description Start Date Severity Status Provider REQUIP Unsure of reaction, states that she was in severe pain Critical Active Ahmet Carbajal MD AMITRIPTYLINE HCL Mood changes. 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 is not sure of the dose.) DICLOFENAC POTASSIUM TABS 22406163764 Active Ahmet Carbajal MD Active MIRALAX PACK 1 po qd PRN Constipation POLYETHYLENE GLYCOL 3350 39574401072 No Longer Active Ahmet Carbajal MD Active MINIPRESS 2 MG CAPS 4 cap po at night PRAZOSIN HCL 79191932373 No Longer Active Ahmet Carbajal MD Active PIROXICAM 20 MG CAPS 1 cap po qd PRN Pain PIROXICAM 21161415257 No Longer Active Ahmet Carbajal MD Active TRAMADOL HCL 50 MG TABS 1-2 po TID PRN Pain TRAMADOL HCL 18915097660 No Longer Active Ahmet Carbajal MD Active METOPROLOL TARTRATE 50 MG TAB 1 po bid METOPROLOL TARTRATE 38968353905 No Longer Active Ahmet Carbajal MD Active ABILIFY 15 MG ORAL TABS 1 tab daily ARIPIPRAZOLE 08246572300 No Longer Active Ahmet Carbajal MD Active PROZAC 20 MG ORAL CAPS 1 tab daily FLUOXETINE HCL 95451991423 No Longer Active Ahmet Carbajal MD Active AMBIEN 5 MG ORAL TABS 1 tab at bedtime ZOLPIDEM TARTRATE 82677294947 No Longer Active Ahmet Carbajal MD Active PREDNISONE 20 MG TAB 2 tabs daily for 4 days, 1 tab daily for 4 days, 1/2 tab daily for 4 days PREDNISONE 34254177584 No Longer Active Ahmet Carbajal MD Active KEFLEX 500 MG CAP 1 po TID x 10 days CEPHALEXIN 00162348925 No Longer Active Vishal Hui MD Active ABILIFY MAINTENA 400 MG IM SUSR Injection once per month ARIPIPRAZOLE 30465843876 Active Juliet Kimbrough APRN Active IMITREX 50 MG ORAL TABS 1/2 tab every 6 hours prn SUMATRIPTAN SUCCINATE 52693761524 Active Luigi Martínez APRN Active TOPAMAX 50 MG ORAL TABS 1 tab twice daily TOPIRAMATE 31620322210 Active Vishal Hui MD Active SAPHRIS 5 MG SUBL 1 po bid ASENAPINE MALEATE 43498417751 No Longer Active Luigi Martínez APRN Active LATUDA 80 MG TABS Take one by mouth daily LURASIDONE HCL 39873461105 No Longer Active Luigi Martínez APRN Active AMLODIPINE BESYLATE 5 MG TABS 1 tablet by mouth daily AMLODIPINE BESYLATE 93582648553 No Longer Active Luigi Martínez APRN Active AMITRIPTYLINE HCL 100 MG TAB one at hs AMITRIPTYLINE HCL 68688961879 No Longer Active Vishal Hui MD Active TRAZODONE HCL 100 MG TAB take 1 at bedtime TRAZODONE HCL 01014514868 No Longer Active Vishal Hui MD Active VYVANSE 40 MG CAPS 1 daily, LISDEXAMFETAMINE DIMESYLATE 56146736313 No Longer Active Vishal Hui MD Active IBUPROFEN 600 MG TAB 1 po TID PRN IBUPROFEN 04288529417 No Longer Active Vishal Hui MD Active PROZAC 20 MG CAP Take one by mouth daily FLUOXETINE HCL 12376134984 No Longer Active Vishal Hui MD Active ZOFRAN 4 MG TABS 1 po q6hr PRN Nausea ONDANSETRON HCL Active Vishal Hui MD Active BACTRIM DS 800-160 MG TABS 1 pill by mouth twice daily SULFAMETHOXAZOLE-TRIMETHOPRIM 83317634413 No Longer Active Sahara Rodriguez MD PhD Active DIFLUCAN 150 MG TAB 1 tablet by mouth daily FLUCONAZOLE 15724128750 No Longer Active Vishal Hui MD Active TIZANIDINE HCL 4 MG TABS 1 po q6hr PRN Muscle Spasm/Back Pain TIZANIDINE HCL 02418973356 Active Luigi Martínez APRN Active CLINDAMYCIN HCL 150 MG CAPS 1 four times a day CLINDAMYCIN HCL 64744081699 No Longer Active Neeraj Collins MD Active KEFLEX 500 MG ORAL CAPS 1 cap QID by mouth CEPHALEXIN 91249984065 No Longer Active Neeraj Collins MD Active DIFLUCAN 150 MG TABS 1 pill every other day x 2 doses FLUCONAZOLE 79674882962 No Longer Active Sahara Rodriguez MD PhD Active MELATONIN 3 MG CAPS 2 po q hs MELATONIN 77292622376 No Longer Active Sahara Rodriguez MD PhD Active MULTIVITAMINS CAPS Take one by mouth daily MULTIPLE VITAMIN 69649065024 No Longer Active Sahara Rodriguez MD PhD Active BACTRIM DS 800-160 MG TAB 1 tab by mouth twice daily TRIMETHOPRIM-SULFAMETHOXAZOLE 88720507685 No Longer Active Sahara Rodriguez MD PhD Active [facility] PROBIOTIC ORAL CHEW 2 daily po PROBIOTIC PRODUCT 55989073312 No Longer Active Sahara Rodriguez MD PhD Active BACTRIM DS 800-160 MG TABS 1 po BID x 7 days SULFAMETHOXAZOLE-TRIMETHOPRIM 80126808164 No Longer Active Vishal Hui MD Active CHANTIX STARTING MONTH EARNEST 0.5 MG X 11 & 1 MG X 42 TABS 0.5mg daily for 3 days , then 0.5mg BID for 4 days, then 1mg BID VARENICLINE TARTRATE 29299731190 No Longer Active TAMARA Gray Active VERAPAMIL HCL CR 120 MG TAB CR 1 po bid VERAPAMIL HCL 94338669096 No Longer Active Vishal Hui MD Active METOPROLOL SUCCINATE 50 MG TB24 1 tablet by mouth daily METOPROLOL SUCCINATE 40395442024 No Longer Active Vishal Hui MD Active SAPHRIS 10 MG SUBL 1 tab po bid ASENAPINE MALEATE 84057551731 No Longer Active Vishal Hui MD Active LISINOPRIL 20 MG TABS 1 tab po qd LISINOPRIL 19244921195 No Longer Active Vishal Hui MD Active BENADRYL 25 MG CAP 2 po tid prn anxiety DIPHENHYDRAMINE HCL 78064923988 Active Vishal Hui MD Active LATUDA 20 MG TABS Take one by mouth daily LURASIDONE HCL 85021429212 No Longer Active Vishal Hui MD Active TRAZODONE HCL 50 MG TABS 1/2 tab po qd prn for anxiety TRAZODONE HCL 71388741664 No Longer Active Vishal Hui MD Active OMEPRAZOLE 20 MG TBEC 1 po q a.m. 30min prior to first food intake OMEPRAZOLE 78025563494 Active Vishal Hui MD Active RANITIDINE HCL 150 MG CAPS 1 twice a day RANITIDINE HCL 72867712747 Active Vishal Hui MD Active LINZESS 290 MCG CAPS Take one by mouth daily LINACLOTIDE 09120425661 No Longer Active Vishal Hui MD Active SAPHRIS 5 MG SUBL 1 tab po qd ASENAPINE MALEATE 51528072259 No Longer Active Vishal Hui MD Active ZALEPLON 10 MG CAPS 1 cap po every other night ZALEPLON 31840536523 No Longer Active Vishal Hui MD Active LYRICA 50 MG CAPS 1 tab po TID PREGABALIN 20393355089 No Longer Active Vishal Hui MD Active LORATADINE 10 MG TABS 1 tab po qd LORATADINE 21215058676 No Longer Active Vishal Hui MD Active VERAPAMIL HCL ER 180 MG CR-TABS 1 tab po bid VERAPAMIL HCL 11066571312 No Longer Active Vishal Hui MD Active MIRALAX POWD 1 capfull once daily POLYETHYLENE GLYCOL 3350 63019565551 No Longer Active Vishal Hui MD Active PREDNISONE 20 MG TABS 1 tab po qd PREDNISONE 19890878417 No Longer Active Renzo Thornton DO Active LEVOFLOXACIN 500 MG TABS 1 tab po qd LEVOFLOXACIN 15532295896 No Longer Active Renzo Thornton DO Active BUSPIRONE HCL 15 MG TABS 1 tab po TID BUSPIRONE HCL 88527140306 No Longer Active Renzo Thornton DO Active BENZTROPINE MESYLATE 1 MG TABS 1 tab po qd BENZTROPINE MESYLATE 96852738780 No Longer Active Renzo Thornton DO Active ATENOLOL 25 MG TABS 1 tab po qd ATENOLOL 05899877904 No Longer Active Renzo Thornton DO Active ESCITALOPRAM OXALATE 20 MG TABS 1 tab po qd ESCITALOPRAM OXALATE 43193364935 No Longer Active Renzo Thornton DO Active ADVAIR DISKUS 250-50 MCG/DOSE AEPB 1 puff BID FLUTICASONE-SALMETEROL 76938637747 No Longer Active Renzo Thornton DO Active PREDNISONE 20 MG TAB 2 tabs daily for 3 days, 1 tab daily for 3 days, 1/2 tab daily for 2 days PREDNISONE 40451030481 No Longer Active Vishal Hui MD Active CEFDINIR 300 MG CAPS by mouth twice a day CEFDINIR 75736926158 No Longer Active Vishal Hui MD Active LANSOPRAZOLE 30 MG CPDR 1 cap po qd LANSOPRAZOLE 41480096977 No Longer Active Vishal Hui MD Active BACLOFEN 20 MG TABS 1 tab po tid BACLOFEN 82334197313 No Longer Active Vishal Hui MD Active ADVAIR DISKUS 250-50 MCG/DOSE AEPB 1 puff BID ADVAIR DISKUS 250-50 MCG/DOSE AEPB FLUTICASONE-SALMETEROL Inactive ESCITALOPRAM OXALATE 20 MG TABS 1 tab po qd ESCITALOPRAM OXALATE 20 MG TABS 262511 ESCITALOPRAM OXALATE Inactive ATENOLOL 25 MG TABS 1 tab po qd ATENOLOL 25 MG TABS 276278 ATENOLOL Inactive BENZTROPINE MESYLATE 1 MG TABS 1 tab po qd BENZTROPINE MESYLATE 1 MG TABS 966944 BENZTROPINE MESYLATE Inactive BUSPIRONE HCL 15 MG TABS 1 tab po TID BUSPIRONE HCL 15 MG TABS 182409 BUSPIRONE HCL Inactive LEVOFLOXACIN 500 MG TABS 1 tab po qd LEVOFLOXACIN 500 MG TABS 675759 LEVOFLOXACIN Inactive PREDNISONE 20 MG TABS 1 tab po qd PREDNISONE 20 MG TABS 513458 PREDNISONE Inactive MIRALAX POWD 1 capfull once daily MIRALAX POWD 224225 POLYETHYLENE GLYCOL 3350 Inactive VERAPAMIL HCL ER 180 MG CR-TABS 1 tab po bid VERAPAMIL HCL ER 180 MG CR-TABS VERAPAMIL HCL Inactive LORATADINE 10 MG TABS 1 tab po qd LORATADINE 10 MG TABS 671540 LORATADINE Inactive LYRICA 50 MG CAPS 1 tab po TID LYRICA 50 MG CAPS PREGABALIN Inactive ZALEPLON 10 MG CAPS 1 cap po every other night ZALEPLON 10 MG CAPS 028371 ZALEPLON Inactive SAPHRIS 5 MG SUBL 1 tab po qd SAPHRIS 5 MG SUBL ASENAPINE MALEATE Inactive TRAZODONE HCL 50 MG TABS 1/2 tab po qd prn for anxiety TRAZODONE HCL 50 MG TABS 596969 TRAZODONE HCL Inactive LATUDA 20 MG TABS Take one by mouth daily LATUDA 20 MG TABS LURASIDONE HCL Inactive LISINOPRIL 20 MG TABS 1 tab po qd LISINOPRIL 20 MG TABS 940903 LISINOPRIL Inactive SAPHRIS 10 MG SUBL 1 [...] twice daily BACTRIM DS 800-160 MG TAB 170930 TRIMETHOPRIM-SULFAMETHOXAZOLE Inactive MULTIVITAMINS CAPS Take one by mouth daily MULTIVITAMINS CAPS MULTIPLE VITAMIN Inactive MELATONIN 3 MG CAPS 2 po q hs MELATONIN 3 MG CAPS 910786 MELATONIN Inactive KEFLEX 500 MG ORAL CAPS 1 cap QID by mouth KEFLEX 500 MG ORAL CAPS 234580 CEPHALEXIN Inactive CLINDAMYCIN HCL 150 MG CAPS 1 four times a day CLINDAMYCIN HCL 150 MG CAPS 437236 CLINDAMYCIN HCL Inactive DIFLUCAN 150 MG TAB 1 tablet by mouth daily DIFLUCAN 150 MG TAB 195389 FLUCONAZOLE Inactive PROZAC 20 MG CAP Take one by mouth daily PROZAC 20 MG CAP 702688 FLUOXETINE HCL Inactive IBUPROFEN 600 MG TAB 1 po TID PRN IBUPROFEN 600 MG TAB 914960 IBUPROFEN Inactive VYVANSE 40 MG CAPS 1 daily, VYVANSE 40 MG CAPS LISDEXAMFETAMINE DIMESYLATE Inactive TRAZODONE HCL 100 MG TAB take 1 at bedtime TRAZODONE HCL 100 MG TAB 363055 TRAZODONE HCL Inactive AMITRIPTYLINE HCL 100 MG TAB one at hs AMITRIPTYLINE HCL 100 MG TAB 968117 AMITRIPTYLINE HCL Inactive AMLODIPINE BESYLATE 5 MG TABS 1 tablet by mouth daily AMLODIPINE BESYLATE 5 MG TABS 833143 AMLODIPINE BESYLATE Inactive LATUDA 80 MG TABS Take one by mouth daily LATUDA 80 MG TABS LURASIDONE HCL Inactive SAPHRIS 5 MG SUBL 1 po bid SAPHRIS 5 MG SUBL ASENAPINE MALEATE Inactive PREDNISONE 20 MG TAB 2 tabs daily for 4 days, 1 tab daily for 4 days, 1/2 tab daily for 4 days PREDNISONE 20 MG TAB 068792 PREDNISONE Inactive AMBIEN 5 MG ORAL TABS 1 tab at bedtime AMBIEN 5 MG ORAL TABS 660557 ZOLPIDEM TARTRATE Inactive PROZAC 20 MG ORAL CAPS 1 tab daily PROZAC 20 MG ORAL CAPS 738855 FLUOXETINE HCL Inactive ABILIFY 15 MG ORAL TABS 1 tab daily ABILIFY 15 MG ORAL TABS 446333 ARIPIPRAZOLE Inactive METOPROLOL TARTRATE 50 MG TAB 1 po bid METOPROLOL TARTRATE 50 MG TAB 023382 METOPROLOL TARTRATE Inactive TRAMADOL HCL 50 MG TABS 1-2 po TID PRN Pain TRAMADOL HCL 50 MG TABS 075405 TRAMADOL HCL Inactive PIROXICAM 20 MG CAPS 1 cap po qd PRN Pain PIROXICAM 20 MG CAPS 624345 PIROXICAM Inactive MINIPRESS 2 MG CAPS 4 cap po at night MINIPRESS 2 MG CAPS 690592 PRAZOSIN HCL Inactive MIRALAX PACK 1 po qd PRN Constipation MIRALAX PACK 806390 POLYETHYLENE GLYCOL 3350 Inactive CEFDINIR 300 MG CAPS by mouth twice a day CEFDINIR 300 MG CAPS 082619 CEFDINIR Inactive PREDNISONE 20 MG TAB 2 tabs daily for 3 days, 1 tab daily for 3 days, 1/2 tab daily for 2 days PREDNISONE 20 MG TAB 911630 PREDNISONE Inactive BACTRIM DS 800-160 MG TABS 1 po BID x 7 days BACTRIM DS 800-160 MG TABS 19820521 SULFAMETHOXAZOLE-TRIMETHOPRIM Inactive DIFLUCAN 150 MG TABS 1 pill every other day x 2 doses DIFLUCAN 150 MG TABS 353210 FLUCONAZOLE Inactive BACTRIM DS 800-160 MG TABS 1 pill by mouth twice daily BACTRIM DS 800-160 MG TABS 19820521 SULFAMETHOXAZOLE-TRIMETHOPRIM Inactive KEFLEX 500 MG CAP 1 po TID x 10 days KEFLEX 500 MG CAP 704309 CEPHALEXIN Inactive Advance Directives Directive Description Start [...] % 11.6-14.8 platelet count 394 10^3/MM^3 10*3/mm3 157-509 1133/01/11 leukocyte count, blood 13.8 10^3/MM^3 10*3/mm3 4.6-10.2 [...] Panel - Chemistry sodium, serum 139 mmol/L 648-328 0837/12/03 carbon dioxide, venous blood 28.5 mmol/L 21.0-32.0 [...] 5.5 % 4.3-6.0 cholesterol, serum 159 mg/dL 621-793 8364/12/03 triglyceride, serum, fasting 118 mg/dL 30-200 HDL [...] Panel - Chemistry sodium, serum 139 mmol/L 699-051 2620/12/22 carbon dioxide, venous blood 26.8 mmol/L 21.0-32.0 potassium, serum 4.2 mmol/L 3.5-5.2 chloride, serum 103 mmol/L 98-107 blood glucose 115 mg/dL 65-110 urea nitrogen, blood 20 mg/dL 7-18 creatinine, serum 0.90 mg/dL 0.55-1.30 alanine aminotransferase (SGPT), serum 38 U/L aspartate aminotransferase (SGOT), serum 19 U/L 15-37 calcium, serum 8.6 mg/dL 8.5-10.1 bilirubin, serum, total 0.30 mg/dL 0.00-1.00 sodium, serum 139 mmol/L 476-487 8910/01/11 carbon dioxide, venous blood 26.6 mmol/L 21.0-32.0 [...] Rate - Chemistry sodium, serum 139 mmol/L 970-876 9071/12/11 carbon dioxide, venous blood 25.4 mmol/L 21.0-32.0 [...] 5.0-8.5 Encounters Code Encounter Date Provider Facility CPT-72917 Level 3 Est. Patient 15:22:01 CDT Ahmet Carbajal MD [facility] CPT-35661 Level 4 Est. Patient 09:00:51 BLACK JACK DEALER Vishal Hui MD [facility] CPT-91544 Level 3 Est. Patient 11:37:33 BLACK JACK DEALER Vishal Hui MD [facility] CPT-70830 Level 3 Est. Patient 08:41:09 BLACK JACK DEALER Vishal Hui MD [facility] CPT-99809 Level 4 Est. Patient 10:19:35 BL[employer] JACK DEALER Vishal Hui MD [facility] CPT-16380 Level 3 Est. Patient 13:35:45 CDT Vishal Hui MD [facility] CPT-60038 Level 4 Est. Patient 10:08:37 CDT Vishal Hui MD [facility]-60037 Level 3 Est. Patient 11:22:10 CDT Vishal Hui MD [facility] CPT-32232 Level 3 Est. Patient 11:03:32 CDT Sahara Rodriguez MD [facility]-83568 Level 3 Est. Patient 09:41:35 CDT Vishal Hui MD [facility]-03538 Level 3 Est. Patient 12:00:41 CDT Neeraj Collins MD [facility]-36167 Level 3 Est. Patient 09:16:24 CDT Vishal Hui MD [facility] CPT-49038 Level 4 Est. Patient 13:59:09 CDT Neeraj Collins MD [facility]-09445 Level 3 Est. Patient 15:19:43 CDT Renzo Thornton DO [facility] CPT-17057 Level 3 Est. Patient 18:10:26 CDT Sahara Rodriguez MD [facility]-90755 Level 3 Est. Patient 14:49:50 CDT Vishal Hui MD [facility] CPT-05641 Level 4 Est. Patient 18:41:46 CDT Neeraj Collins MD [facility]-79612 Level 4 Est. Patient 09:18:38 BLACK JACK DEALER Vishal Hui MD [facility]-20053 Level 3 Est. Patient 14:43:55 BL[employer] JACK DEALER Vishal Hui MD [facility] CPT-07703 Level 3 Est. Patient 15:26:33 BL[employer] JACK DEALER Sahara Rodriguez MD PhD [facility] CPT-27799 Level 3 Est. Patient 10:32:14 BLACK JACK DEALER Vishal Hui MD [facility] CPT-43196 Level 3 Est. Patient 15:12:52 BL[employer] JACK DEALER Vishal Hui MD [facility] CPT-10214 Level 4 Est. Patient 09:19:27 CDT Vishal Hui MD [facility] CPT-20677 Level 3 Est. Patient 15:53:00 CDT Renzo Thornton [facility] CPT-53352 Level 3 Est. Patient 15:50:30 CDT Renzo Thornton [facility] CPT-05024 Level 3 Est. Patient 16:55:24 CDT Vishal Hui MD [facility] Procedures Code Procedure Name Date Entry Date Standard Description CPT-J3420 Vitamin B12 1000mcg (Cyanocobalamin) 08:10:26 BLACK JACK DEALER 04/12 CPT-08948 Abx/Therapy Injection 08:10:26 BL[employer] JACK DEALER CPT-G0438 Initial Annual Wellness Exam 19:01:01 BL[employer] JACK DEALER CPT-J3420 Vitamin B12 1000mcg (Cyanocobalamin) 16:57:46 CDT 08/14 CPT-22749 Recombivax HB Injection Suspension 5 MCG/0.5ML 08:37:50 BL[employer] JACK DEALER CPT-77425 Immunization Single Admin 08:37:50 BL[employer] JACK DEALER CPT-J3420 Vitamin B12 1000mcg (Cyanocobalamin) 08:32:16 BL[employer] JACK DEALER 03/11 CPT-77033 Abx/Therapy Injection 08:32:16 BL[employer] JACK DEALER CPT-22541 Chest 2V Frontal and Lat 11:46:38 BL[employer] JACK DEALER CPT-42233 Venipuncture Draw Fee 09:12:45 BL[employer] JACK DEALER CPT-J3420 Vitamin B12 1000mcg (Cyanocobalamin) 08:50:15 BL[employer] JACK DEALER 02/08 CPT-51390 Abx/Therapy Injection 08:50:15 BL[employer] JACK DEALER CPT-Cryo Cryotherapy 10:19:35 BLACK JACK DEALER CPT-000 Give Appropriate Flu Vaccine 09:22:16 CDT CPT-J3420 Vitamin B12 1000mcg (Cyanocobalamin) 19:08:57 CDT 01/11 CPT-31706 Abx/Therapy Injection 19:08:57 CDT CPT-J3420 Vitamin B12 1000mcg (Cyanocobalamin) 08:19:08 CDT 12/11 CPT-63366 Abx/Therapy Injection 08:19:08 CDT CPT-J3420 Vitamin B12 1000mcg (Cyanocobalamin) 14:48:00 CDT 11/09 CPT-26089 Abx/Therapy Injection 14:47:59 CDT CPT-J3420 Vitamin B12 1000mcg (Cyanocobalamin) 08:34:04 CDT 10/09 CPT-48958 Abx/Therapy Injection 08:34:04 CDT CPT-J3420 Vitamin B12 1000mcg (Cyanocobalamin) 09:18:52 CDT 09/11 CPT-51249 Abx/Therapy Injection 09:18:52 CDT CPT-J3420 Vitamin B12 1000mcg (Cyanocobalamin) 08:35:44 CDT 09/04 CPT-11898 Abx/Therapy Injection 08:35:44 CDT CPT-77394 Immunization Single Admin 11:07:16 CDT CPT-57128 Hepatitis B adult IM 11:07:16 CDT CPT-J3420 Vitamin B12 1000mcg (Cyanocobalamin) 11:00:49 CDT 08/28 CPT-J1040 Depo Medrol 80 mg (Methyl Prednisolone Acetate) 11:00: 49 CDT CPT-80565 Abx/Therapy Injection 11:00:49 CDT CPT-J1040 Depo Medrol 80 mg (Methyl Prednisolone Acetate) 09:16: 23 CDT CPT-J3420 Vitamin B12 1000mcg (Cyanocobalamin) 08:27:05 CDT 08/20 CPT-97689 Abx/Therapy Injection 08:27:05 CDT CPT-54484 Recombivax HB Injection Suspension 5 MCG/0.5ML 10:00:41 CDT CPT-84193 Administration single or combination vaccine inc oral 10 :00:41 CDT CPT-26684 Sono transvag pelvis non OB uterus ovaries cervix 16:36: 57 CDT CPT-60244 LS spine comp w obliq 09:50:55 BL[employer] JACK DEALER CPT-78119 Abd compl w upright 09:50:55 BL[employer] JACK DEALER CPT-J1100 Decadron 4mg (Dexamethasone) 15:51:24 BL[employer] JACK DEALER CPT-J1030 Depo Medrol 40 mg (Methyl Prednisolone Acetate) 15:51: 24 BL[employer] JACK DEALER CPT-87783 Abx/Therapy Injection 15:51:24 BLACK JACK DEALER CPT-J1100 Decadron 4mg (Dexamethasone) 15:26:33 BLACK JACK DEALER CPT-J1030 Depo Medrol 40 mg (Methyl Prednisolone Acetate) 15:26: 33 BLACK JACK DEALER CPT-04846 Sono retroperitoneal complete kidneys and bladder 17:15: 30 CDT CPT-08496 Abd compl w upright 16:09:25 CDT CPT-J1100 Decadron 8mg (Dexamethasone) 17:07:57 CDT CPT-86355 Abx/Therapy Injection 17:07:57 CDT CPT-J1100 Decadron 8mg (Dexamethasone) 16:55:24 CDT CPT-36969 Chest 2V Frontal and Lat 16:32:44 CDT
--- OUTSIDE RECORDS SUMMARY | 2016-11-05 00:58 | XMS REPORT ---
Author Author [facility] Going [employer] Way [facility] Medical Staff Organization [facility] Address [address] [place], [place] [address] Phone [phone] Care Team Providers Care Architect Name Role Phone TINO ABRAMS MD PP [phone] Summary purpose TRANSITION OF CARE AUTO GENERATION Chief Complaint and Reason for Visit Admit Diagnosis 1 CELLULITIS OF LEG Problem list No authorized problems tracked for [...] diagnostic tests and/or laboratory data RESULTS Chemistry :42:00 Result Normal Range Units Sodium 140 134-145 mEq/l Potassium 3.9 3.5-5.1 mEq/l Chloride 106 98-107 mEq/l CO2 22.7 22-28 mEq/l Glucose H 112 70-105 mg/dl BUN H 19 7-18 mg/dl Creatinine 0.94 0.6-1.0 mg/dl Calcium 8.4 8.4-10.2 mg/dl Osmolality 282.4 280-300 mOsm/L Anion GAP 11.3 8-16 BUN/Creatinine Ratio H 20.2 10-20 Estimated GFR 71 >=60 mL/min/1.7 Hematology [id number]:42:00 Result Normal Range Units WBC 9.4 4.8-10.8 103/uL RBC L 4.0 4.2-5.4 106/uL HGB 12.2 12.0-16.0 g/dl HCT L 36.6 36.9-47.0 % MCV 90.8 81-99 FL MCH 30.3 27-31 pg MCHC 33.3 33-37 g/dl RDW 11.9 11.5-15.5 % PLT 336 130-400 103/uL MPV 9.7 7.3-10.4 FL Neutro % 49.5 40-70 % Lymph % 35.5 20-40 % Forest % H 11.0 0-10.0 % Eos % 3.0 0-7.0 % Baso % 0.5 0-2 % Neutro # 4.7 1.5-7.5 103/uL Lymph # 3.4 0.9-4.0 103/uL Forest # H 1.0 0-0.8 103/uL Eos # 0.3 0-0.6 103/uL Baso # 0.1 0-0.1 103/uL Radiology Results [id number]:42:00 Result Normal Range Units MPV 9.7 7.3-10.4 FL History of procedures Procedure Code Code Type Description Date Performed Performing Physician 25783 CPT-4 COMPLETE CBC W/AUTO DIFF WBC 10-25-2014 JESUS GUZMAN 38935 CPT-4 METABOLIC PANEL TOTAL CA 10-25-2014 JESUS GUZMAN J3370 CPT-4 VANCOMYCIN HCL INJECTION 10-25-2014 JESUS GUZMAN J7040 CPT-4 NORMAL SALINE SOLUTION INFUS 10-25-2014 JESUS GUZMAN A9270 CPT-4 NON-COVERED ITEM OR SERVICE 10-25-2014 JESUS GUZMAN 73513 CPT-4 ROUTINE VENIPUNCTURE 10-25-2014 JESUS GUZMAN 17233 CPT-4 EMERGENCY DEPT VISIT 10-25-2014 JESUS GUZMAN 91663 CPT-4 EMERGENCY DEPT VISIT 10-25-2014 JESUS GUZMAN 85857 CPT-4 THER/PROPH/DIAG IV INF, INIT 10-25-2014 JESUS GUZMAN 02583 CPT-4 THER/PROPH/DIAG IV INF ADDON 10-25-2014 JESUS GUZMAN Functional status Functional Status Finding Observation Time Abdomen Appearance round [id number] Vick no [id number]:25 Urination normal :25 Quality sym/unlabored : Cough absent : Secretions no : Airway natural : Chest Tube no : Oxygen no :45 Temp >100.4 no : Temp <96.8 no : Chills with rigors no : HR > 90bpm yes : Respirations > 20 no : Systolic <90 no : headache stiff neck no : Rapid Resp no :25 IV Site Location left inner forearm :45 IV Type peripheral :45 IV Site Information existing :45 IV Site Start Attmpt 1 times :40 IV Site Festus 20 :45 IV Site [...] :45 BP Diastolic 88mmHg :45 Temperature 98.0F :45 Height 64inches :01 Weight 274LB :01 Social history Type Value Smoking Status FORMER SMOKER Treatment Plan No treatment plan text is available for this visit. Hospital discharge instructions Dismissal Condition good Disposition on DC home DC Inst/Educ Give yes Med/Side Effects Rev yes PNE Vac none Flu Vac 2013 Tetanus Vac unknown
--- OUTSIDE RECORDS SUMMARY | 2016-11-05 00:59 | XMS REPORT | Clinical Summary ---
Author Author Admin, E Organization [employer] Address Unknown Phone Unavailable Allergies, Adverse Reactions, [...] ORAL CHEW 2 daily po PROBIOTIC PRODUCT 88026464241 Active Jillina Frazell SECURITY SYSTEMS INTEGRATOR Active IBUPROFEN 600 MG TAB 1 po TID PRN IBUPROFEN 84405767387 Active Jillina Frazell SECURITY SYSTEMS INTEGRATOR Active BACTRIM DS 800-160 MG TAB 1 tab by mouth twice daily TRIMETHOPRIM-SULFAMETHOXAZOLE 50646891252 Active Neeraj Collins MD Active BACTRIM DS 800-160 MG TABS 1 po BID x 7 days SULFAMETHOXAZOLE-TRIMETHOPRIM 34281050805 No Longer Active Vishal Hui MD Active CHANTIX STARTING MONTH EARNEST 0.5 MG X 11 & 1 MG X 42 TABS 0.5mg daily for 3 days , then 0.5mg BID for 4 days, then 1mg BID VARENICLINE TARTRATE 69460662137 No Longer Active TAMARA Gray Active METOPROLOL TARTRATE 50 MG TAB 1 po bid METOPROLOL TARTRATE 02497213041 Active Vishal Hui MD Active TRAZODONE HCL 100 MG TAB take 1 at bedtime TRAZODONE HCL 00662376100 Active Vishal Hui MD Active AMLODIPINE BESYLATE 5 MG TABS 1 tablet by mouth daily AMLODIPINE BESYLATE 62214071020 Active Vishal Hui MD Active VERAPAMIL HCL CR 120 MG TAB CR 1 po bid VERAPAMIL HCL 88531611827 No Longer Active Vishal Hui MD Active METOPROLOL SUCCINATE 50 MG TB24 1 tablet by mouth daily METOPROLOL SUCCINATE 25711219540 No Longer Active Vishal Hui MD Active TRAMADOL HCL 50 MG TABS 1-2 po TID PRN Pain TRAMADOL HCL 18048113865 Active Vishal Hui MD Active SAPHRIS 5 MG SUBL 1 po bid ASENAPINE MALEATE 86925348630 Active Vishal Hui MD Active SAPHRIS 10 MG SUBL 1 tab po bid ASENAPINE MALEATE 98035814175 No Longer Active Vishal Hui MD Active LISINOPRIL 20 MG TABS 1 tab po qd LISINOPRIL 89010956474 No Longer Active Vishal Hui MD Active BENADRYL 25 MG CAP 2 po tid prn anxiety DIPHENHYDRAMINE HCL 31603962656 Active Vishal Hui MD Active LATUDA 80 MG TABS Take one by mouth daily LURASIDONE HCL 01605054596 Active Vishal Hui MD Active LATUDA 20 MG TABS Take one by mouth daily LURASIDONE HCL 19423587489 No Longer Active Vishal Hui MD Active TRAZODONE HCL 50 MG TABS 1/2 tab po qd prn for anxiety TRAZODONE HCL 11826198080 No Longer Active Vishal Hui MD Active PIROXICAM 20 MG CAPS 1 cap po qd PRN Pain PIROXICAM 03710102403 Active Vishal Hui MD Active OMEPRAZOLE 20 MG TBEC 1 po q a.m. 30min prior to first food intake OMEPRAZOLE 60162603951 Active Vishal Hui MD Active RANITIDINE HCL 150 MG CAPS 1 twice a day RANITIDINE HCL 00558496045 Active Vishal Hui MD Active MULTIVITAMINS CAPS Take one by mouth daily MULTIPLE VITAMIN 75329511374 Active Vishal Hui MD Active MELATONIN 3 MG CAPS 2 po q hs MELATONIN 07546629130 Active Vishal uHi MD Active PROZAC 20 MG CAP Take one by mouth daily FLUOXETINE HCL 13152076848 Active Vishal Hui MD Active LINZESS 290 MCG CAPS Take one by mouth daily LINACLOTIDE 40675953941 Active Vishal Hui MD Active SAPHRIS 5 MG SUBL 1 tab po qd ASENAPINE MALEATE 58679011565 No Longer Active Vishal Hui MD Active ZALEPLON 10 MG CAPS 1 cap po every other night ZALEPLON 60552479673 No Longer Active Vishal Hui MD Active LYRICA 50 MG CAPS 1 tab po TID PREGABALIN 01733401666 No Longer Active Vishal Hui MD Active LORATADINE 10 MG TABS 1 tab po qd LORATADINE 72521125793 No Longer Active Vishal Hui MD Active VERAPAMIL HCL ER 180 MG CR-TABS 1 tab po bid VERAPAMIL HCL 18772711982 No Longer Active Vishal Hui MD Active MIRALAX POWD 1 capfull once daily POLYETHYLENE GLYCOL 3350 79617167106 No Longer Active Vishal Hui MD Active PREDNISONE 20 MG TABS 1 tab po qd PREDNISONE 37802324233 No Longer Active Renzo Thornton DO Active LEVOFLOXACIN 500 MG TABS 1 tab po qd LEVOFLOXACIN 68516461339 No Longer Active Renzo Thornton DO Active BUSPIRONE HCL 15 MG TABS 1 tab po TID BUSPIRONE HCL 21979546502 No Longer Active Renzo Thornton DO Active BENZTROPINE MESYLATE 1 MG TABS 1 tab po qd BENZTROPINE MESYLATE 12558661112 No Longer Active Renzo Thornton DO Active ATENOLOL 25 MG TABS 1 tab po qd ATENOLOL 18688740714 No Longer Active Renzo Thornton DO Active ESCITALOPRAM OXALATE 20 MG TABS 1 tab po qd ESCITALOPRAM OXALATE 92333315807 No Longer Active Renzo Thornton DO Active ADVAIR DISKUS 250-50 MCG/DOSE AEPB 1 puff BID FLUTICASONE-SALMETEROL 90292422605 No Longer Active Renzo Thornton DO Active PREDNISONE 20 MG TAB 2 tabs daily for 3 days, 1 tab daily for 3 days, 1/2 tab daily for 2 days PREDNISONE 12139700406 No Longer Active Vishal Hui MD Active CEFDINIR 300 MG CAPS by mouth twice a day CEFDINIR 07991563308 No Longer Active Vishal Hui MD Active LANSOPRAZOLE 30 MG CPDR 1 cap po qd LANSOPRAZOLE 61105246343 No Longer Active Vishal Hui MD Active TOPAMAX 25 MG TABS 1 tab po bid TOPIRAMATE 53114729283 Active Vishal Hui MD Active MINIPRESS 2 MG CAPS 1 cap po at night PRAZOSIN HCL 71565441839 Active Vishal Hui MD Active BACLOFEN 20 MG TABS 1 tab po tid BACLOFEN 87740549860 Active Vishal Hui MD Active ADVAIR DISKUS 250-50 MCG/DOSE AEPB 1 puff BID ADVAIR DISKUS 250-50 MCG/DOSE AEPB FLUTICASONE-SALMETEROL Inactive ESCITALOPRAM OXALATE 20 MG TABS 1 tab po qd ESCITALOPRAM OXALATE 20 MG TABS 645098 ESCITALOPRAM OXALATE Inactive ATENOLOL 25 MG TABS 1 tab po qd ATENOLOL 25 MG TABS 077395 ATENOLOL Inactive BENZTROPINE MESYLATE 1 MG TABS 1 tab po qd BENZTROPINE MESYLATE 1 MG TABS 071855 BENZTROPINE MESYLATE Inactive BUSPIRONE HCL 15 MG TABS 1 tab po TID BUSPIRONE HCL 15 MG TABS 268006 BUSPIRONE HCL Inactive LEVOFLOXACIN 500 MG TABS 1 tab po qd LEVOFLOXACIN 500 MG TABS 978911 LEVOFLOXACIN Inactive PREDNISONE 20 MG TABS 1 tab po qd PREDNISONE 20 MG TABS 361476 PREDNISONE Inactive MIRALAX POWD 1 capfull once daily MIRALAX POWD 405270 POLYETHYLENE GLYCOL 3350 Inactive VERAPAMIL HCL ER 180 MG CR-TABS 1 tab po bid VERAPAMIL HCL ER 180 MG CR-TABS VERAPAMIL HCL Inactive LORATADINE 10 MG TABS 1 tab po qd LORATADINE 10 MG TABS 871083 LORATADINE Inactive LYRICA 50 MG CAPS 1 tab po TID LYRICA 50 MG CAPS PREGABALIN Inactive ZALEPLON 10 MG CAPS 1 cap po every other night ZALEPLON 10 MG CAPS 556188 ZALEPLON Inactive SAPHRIS 5 MG SUBL 1 tab po qd SAPHRIS 5 MG SUBL ASENAPINE MALEATE Inactive TRAZODONE HCL 50 MG TABS 1/2 tab po qd prn for anxiety TRAZODONE HCL 50 MG TABS 229982 TRAZODONE HCL Inactive LATUDA 20 MG TABS Take one by mouth daily LATUDA 20 MG TABS LURASIDONE HCL Inactive LISINOPRIL 20 MG TABS 1 tab po qd LISINOPRIL 20 MG TABS 799439 LISINOPRIL Inactive SAPHRIS 10 MG SUBL 1 [...] twice a day CEFDINIR 300 MG CAPS 428648 CEFDINIR Inactive PREDNISONE 20 MG TAB 2 tabs daily for 3 days, 1 tab daily for 3 days, 1/2 tab daily for 2 days PREDNISONE 20 MG TAB 452451 PREDNISONE Inactive BACTRIM DS 800-160 MG TABS [...] U/L Chart Maintenance: outside labs entered on [employer] - Hematology leukocyte count, blood 8.9 10*3/mm3 hemoglobin, blood 13.2 g/dL platelet count 364 10*3/mm3 Lab Report: Comp. Metabolic Panel - Chemistry sodium, serum 141 mmol/L 130-641 2418 potassium, serum 4.3 mmol/L 3.5-5.2 chloride, serum [...] Panel - Chemistry sodium, serum 139 mmol/L 110-195 3248/12/31 potassium, serum 4.8 mmol/L 3.5-5.2 chloride, serum 106 mmol/L 98-107 carbon dioxide, venous blood 24.3 mmol/L 21.0-32.0 blood glucose 90 mg/dL 65-110 urea nitrogen, blood 16 mg/dL 7-18 creatinine, serum 1.00 mg/dL 0.60-1.30 alanine aminotransferase (SGPT), serum 41 U/L aspartate aminotransferase (SGOT), serum 17 U/L 15-37 calcium, serum 8.6 mg/dL 8.5-10.1 bilirubin, serum, total 0.30 mg/dL 0.00-1.00 cholesterol, serum 108 mg/dL 617-614 4772/12/31 triglyceride, serum, fasting 120 mg/dL 30-200 HDL [...] 5.0-8.5 Encounters Code Encounter Date Provider Facility [id number]-[id number] Level 3 Est. Patient 14:49:50 CDT Vishal Hui MD [facility] CPT-66898 Level 4 Est. Patient 18:41:46 CDT Neeraj Collins MD [facility] CPT-31135 Level 4 Est. Patient 09:18:38 SENIOR MEDICAL TRANSCRIPTIONIST Vishal Hui MD [facility] CPT-95888 Level 3 Est. Patient 14:43:55 SENIOR MEDICAL TRANSCRIPTIONIST Vishal Hui MD [facility] CPT-87504 Level 3 Est. Patient 15:26:33 SENIOR MEDICAL TRANSCRIPTIONIST Sahara Rodriguez MD PhD [facility] CPT-42833 Level 3 Est. Patient 10:32:14 SENIOR MEDICAL TRANSCRIPTIONIST Vishal Hui MD [facility] CPT-39045 Level 3 Est. Patient 15:12:52 SENIOR MEDICAL TRANSCRIPTIONIST Vishal Hui MD [facility] CPT-60184 Level 4 Est. Patient 09:19:27 CDT Vishal Hui MD [facility] CPT-71784 Level 3 Est. Patient 15:53:00 CDT Renzo Thornton [facility] CPT-92072 Level 3 Est. Patient 15:50:30 CDT Renzo Thornton [facility] CPT-16112 Level 3 Est. Patient 16:55:24 CDT Vishal Hui MD [facility] Procedures Code Procedure Name Date Entry Date Standard Description CPT-77724 Sono transvag pelvis non OB uterus ovaries cervix 16:36: 57 CDT CPT-26766 LS spine comp w obliq 09:50:55 SENIOR MEDICAL TRANSCRIPTIONIST CPT-92790 Abd compl w upright 09:50:55 SENIOR MEDICAL TRANSCRIPTIONIST CPT-J1100 Decadron 4mg (Dexamethasone) 15:51:24 SENIOR MEDICAL TRANSCRIPTIONIST CPT-J1030 Depo Medrol 40 mg (Methyl Prednisolone Acetate) 15:51: 24 SENIOR MEDICAL TRANSCRIPTIONIST CPT-92235 Abx/Therapy Injection 15:51:24 SENIOR MEDICAL TRANSCRIPTIONIST CPT-J1100 Decadron 4mg (Dexamethasone) 15:26:33 SENIOR MEDICAL TRANSCRIPTIONIST CPT-J1030 Depo Medrol 40 mg (Methyl Prednisolone Acetate) 15:26: 33 SENIOR MEDICAL TRANSCRIPTIONIST CPT-73197 Sono retroperitoneal complete kidneys and bladder 17:15: 30 CDT CPT-89660 Abd compl w upright 16:09:25 CDT CPT-J1100 Decadron 8mg (Dexamethasone) 17:07:57 CDT CPT-58531 Abx/Therapy Injection 17:07:57 CDT CPT-J1100 Decadron 8mg (Dexamethasone) 16:55:24 CDT CPT-14018 Chest 2V Frontal and Lat 16:32:44 CDT
--- OUTSIDE RECORDS SUMMARY | 2016-11-05 01:02 | XMS REPORT | Clinical Summary ---
Author Author Admin, FLOR Organization [facility] Address Unknown Phone Unavailable Allergies, Adverse Reactions, [...] sites Morbid obesity 278.01 Active Juliet Kimbrough DRY KILN FEEDER Morbid obesity 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 Active [...] breath Nocturnal hypoxia 799.02 Active Fabiola Johnson DR[employer] KILN FEEDER Hypoxemia Neck pain 723.1 Resolved Vishal [...] fibula Vaginal discharge 623.5 Active Luigi Martínez DRY KILN FEEDER Leukorrhea, not specified as infective DYSURIA 788.1 Active Luigi Martínez APRN Dysuria Contraceptive management V25.09 Active Dipiak Burgos MD Encounter for other general counseling [...] as needed for pseudoseizures or anxiety CLONAZEPAM 32295022024 Active Ahmet Carbajal MD Active HYDROCODONE-ACETAMINOPHEN 5-325 MG ORAL TABS 1 tab two times a day HYDROCODONE-ACETAMINOPHEN 02157397180 No Longer Active Ahmet Carbajal MD Active LAMICTAL 100 MG ORAL TABS 1 tab 2 times qd. LAMOTRIGINE 53972647448 Active Ahmet Carbajal MD Active PREDNISONE 20 MG TABS 2 daily for 5 days then 1 daily for 5 days PREDNISONE 83927735529 No Longer Active Ahmet Carbajal MD Active FLUTICASONE PROPIONATE 50 MCG/ACT SUSP 1 to 2 sprays each nostril daily for allergies FLUTICASONE PROPIONATE 57845122877 Active Tila Valenzuela Active GUAIFENESIN-CODEINE 100-10 MG/5ML SYRP 5ml every 4 to 6 hours as needed for cough GUAIFENESIN-CODEINE 34365953995 Active Ahmet Carbajal MD Active BENADRYL 25 MG CAP 4 po at bedtime for insomnia DIPHENHYDRAMINE HCL 08887412668 No Longer Active Ahmet Carbajal MD Active ADVAIR DISKUS 250-50 MCG/DOSE INH AEPB 1 puff twice a day for asthma FLUTICASONE-SALMETEROL 92931205243 No Longer Active Ahmet Carbajal MD Active KLONOPIN 1 MG ORAL TABS 1 tab po TID CLONAZEPAM 54320677425 No Longer Active Ahmet Carbajal MD Active ABILIFY MAINTENA 400 MG IM SUSR 400mg injection every 26 days ARIPIPRAZOLE 86251737118 No Longer Active Ahmet Carbajal MD Active HALOPERIDOL 10 MG ORAL TABS 1 tab q.d HALOPERIDOL 74929032347 Active Ahmet Carbajal MD Active ASPIRIN 325 MG ORAL TABS 1 tab q.d ASPIRIN 68456599478 Active Ahmet Carbajal MD Active TRAMADOL HCL 50 MG TABS 1/2-1 tab TID PRN TRAMADOL HCL 08505486654 No Longer Active Ahmet Carbajal MD Active BACTRIM DS 800-160 MG TABS 1 twice a day SULFAMETHOXAZOLE- TRIMETHOPRIM 65245424272 No Longer Active Ahmet Carbajal MD Active PROAIR HFA 108 (90 BASE) MCG/ACT AERS 2 puffs four times a day as needed 2015 ALBUTEROL SULFATE 64489000615 Active Ahmet Carbajal MD Active EQ NICOTINE 21 MG/24HR TRANS PT24 Apply daily to stop smoking NICOTINE 36444787295 Active Ahmet Carbajal MD Active MONISTAT 7 COMBO PACK WOODROW 100 & 2 MG-% (9GM) VAG KIT 1 applicatorful per vagina q pm x 7 MICONAZOLE NITRATE 62367416842 No Longer Active Ahmet Carbajal MD Active FLAGYL 500 MG TAB 1 tablet by mouth bid METRONIDAZOLE 06407230315 No Longer Active Ahmet Carbajal MD Active OXYCODONE HCL ER 10 MG ORAL T12A 1/2 tab by mouth every 4 hours prn OXYCODONE HCL 86377270414 No Longer Active Ahmet Carbajal MD Active METHYLPREDNISOLONE 4 MG ORAL TABS po daily METHYLPREDNISOLONE 73119156413 No Longer Active Ahmet Carbajal MD Active LEVOFLOXACIN 500 MG ORAL TABS po daily LEVOFLOXACIN 67931453515 No Longer Active Ahmet Carbajal MD Active VIIBRYD 10 MG ORAL TABS Take 1 tablet once a day VILAZODONE HCL 11752897619 No Longer Active Ahmet Carbajal MD Active TOPAMAX 50 MG ORAL TABS 1 tab twice daily TOPIRAMATE 99391042634 No Longer Active Ahmet Carbajal MD Active DICLOFENAC SODIUM 50 MG TBEC 1 tablet by mouth four times daily PRN Pain 2015 DICLOFENAC SODIUM 18369885468 No Longer Active Ahmet Carbajal MD Active ADZENYS XR-ODT 6.3 MG ORAL TBED 1 tab po daily for ADHD AMPHETAMINE 69914547949 No Longer Active Ahmet Carbajal MD Active CHANTIX 1 MG TABS 1 twice a day to help quit smoking VARENICLINE TARTRATE 78136099179 No Longer Active Dipika Burgos MD Active CHANTIX STARTING MONTH EARNEST 0.5 MG X 11 & 1 MG X 42 TABS take as directed 2015 VARENICLINE TARTRATE 27659394987 No Longer Active Dipika Burgos MD Active TESSALON PERLES 100 MG CAP 1 to 2 tablets by mouth 3 times daily as needed for cough BENZONATATE 79573049053 No Longer Active Luigi Martínez APRN Active IMITREX 50 MG ORAL TABS 0.5 po x 1 PRN Headache. May repeat dose x 1 in 2 hours if needed SUMATRIPTAN SUCCINATE 59164682022 Active Ahmet Carbajal MD Active HYDROCODONE-ACETAMINOPHEN 5-325 MG TABS 1 to 2 four times a day as needed for pain use until can be seen by specialist HYDROCODONE- ACETAMINOPHEN 98138295947 No Longer Active Vishal Hui MD Active PROAIR HFA 108 (90 BASE) MCG/ACT AERS 2 puffs four times a day as needed 2015 ALBUTEROL SULFATE 63979891154 No Longer Active Vishal Hui MD Active PREDNISONE 20 MG TABS 2 daily for 5 days then 1 daily for 5 days PREDNISONE 80405864403 No Longer Active Vishal Hui MD Active ZITHROMAX Z-EARNEST 250 MG TABS 2 today and then 1 daily for 4 days AZITHROMYCIN 58225615775 No Longer Active Vishal Hui MD Active DICLOFENAC POTASSIUM TABS Take 1 tablet twice a day (pt. is not sure of the dose.) DICLOFENAC POTASSIUM TABS 33691776059 No Longer Active Vishal Hui MD Active VERAPAMIL HCL ER 120 MG ORAL CR-TABS Take 1 tablet by mouth twice a day. VERAPAMIL HCL 45748338065 Active Vishal Hui MD Active FLAGYL 500 MG TAB 1 tablet by mouth bid METRONIDAZOLE 03881759269 No Longer Active Vishal Hui MD Active FLUTICASONE PROPIONATE 50 MCG/ACT SUSP 2 sprays each nostril daily before bed. FLUTICASONE PROPIONATE 83329878495 Active Fabiola Johnson APRN Active VALIUM 5 MG TAB Take 1-2 tablets daily DIAZEPAM 71774509469 No Longer Active Fabiola Johnson APRN Active METOPROLOL TARTRATE 25 MG ORAL TABS 1/2 tablet twice daily for heart rate and blood pressure METOPROLOL TARTRATE 75362263528 No Longer Active Fabiola Johnson APRN Active MIRALAX ORAL POWD 17GMS DAILY IN WATER POLYETHYLENE GLYCOL 3350 91892901367 Active TAMARA Casey Active MIRALAX PACK 1 po qd PRN Constipation POLYETHYLENE GLYCOL 3350 94083926045 No Longer Active Ahmet Carbajal MD Active MINIPRESS 2 MG CAPS 4 cap po at night PRAZOSIN HCL 80565353406 No Longer Active Ahmet Carbajal MD Active PIROXICAM 20 MG CAPS 1 cap po qd PRN Pain PIROXICAM 69943338570 No Longer Active Ahmet Carbajal MD Active TRAMADOL HCL 50 MG TABS 1-2 po TID PRN Pain TRAMADOL HCL 92032830018 No Longer Active Ahmet Carbajal MD Active METOPROLOL TARTRATE 50 MG TAB 1 po bid METOPROLOL TARTRATE 92712700092 No Longer Active Ahmet Carbajal MD Active ABILIFY 15 MG ORAL TABS 1 tab daily ARIPIPRAZOLE 80574453706 No Longer Active Ahmet Carbajal MD Active PROZAC 20 MG ORAL CAPS 1 tab daily FLUOXETINE HCL 37599125979 No Longer Active Ahmet Carbajal MD Active AMBIEN 5 MG ORAL TABS 1 tab at bedtime ZOLPIDEM TARTRATE 84418673603 No Longer Active Ahmet Carbajal MD Active PREDNISONE 20 MG TAB 2 tabs daily for 4 days, 1 tab daily for 4 days, 1/2 tab daily for 4 days PREDNISONE 75094243113 No Longer Active Ahmet Carbajal MD Active KEFLEX 500 MG CAP 1 po TID x 10 days CEPHALEXIN 81088048583 No Longer Active Vishal Hui MD Active SAPHRIS 5 MG SUBL 1 po bid ASENAPINE MALEATE 42339700309 No Longer Active Jillina Fralebron DRY KILN FEEDER Active LATUDA 80 MG TABS Take one by mouth daily LURASIDONE HCL 92666487725 No Longer Active Jillina Frazell DRY KILN FEEDER Active AMLODIPINE BESYLATE 5 MG TABS 1 tablet by mouth daily AMLODIPINE BESYLATE 88357954149 No Longer Active Jillina Frazell DRY KILN FEEDER Active AMITRIPTYLINE HCL 100 MG TAB one at hs AMITRIPTYLINE HCL 67388823385 No Longer Active Vishal Hui MD Active TRAZODONE HCL 100 MG TAB take 1 at bedtime TRAZODONE HCL 56823438312 No Longer Active Vishal Hui MD Active VYVANSE 40 MG CAPS 1 daily, LISDEXAMFETAMINE DIMESYLATE 05719200431 No Longer Active Vishal Hui MD Active IBUPROFEN 600 MG TAB 1 po TID PRN IBUPROFEN 93205573574 No Longer Active Vishal Hui MD Active PROZAC 20 MG CAP Take one by mouth daily FLUOXETINE HCL 12914309168 No Longer Active Vishal Hui MD Active ZOFRAN 4 MG TABS 1 po q6hr PRN Nausea ONDANSETRON HCL Active Vishal Hui MD Active BACTRIM DS 800-160 MG TABS 1 pill by mouth twice daily SULFAMETHOXAZOLE-TRIMETHOPRIM 13222092240 No Longer Active Sahara Rodriguez MD PhD Active DIFLUCAN 150 MG TAB 1 tablet by mouth daily FLUCONAZOLE 19961801968 No Longer Active Vishal Hui MD Active TIZANIDINE HCL 4 MG TABS 1 po q6hr PRN Muscle Spasm/Back Pain TIZANIDINE HCL 51515110763 Active Vishal Hui MD Active CLINDAMYCIN HCL 150 MG CAPS 1 four times a day CLINDAMYCIN HCL 89192943064 No Longer Active Neeraj Collins MD Active KEFLEX 500 MG ORAL CAPS 1 cap QID by mouth CEPHALEXIN 68748684959 No Longer Active Neeraj Collins MD Active DIFLUCAN 150 MG TABS 1 pill every other day x 2 doses FLUCONAZOLE 73456311625 No Longer Active Sahara Rodriguez MD PhD Active MELATONIN 3 MG CAPS 2 po q hs MELATONIN 55098196128 No Longer Active Sahara Rodriguez MD PhD Active MULTIVITAMINS CAPS Take one by mouth daily MULTIPLE VITAMIN 41309958737 No Longer Active Sahara Rodriguez MD PhD Active BACTRIM DS 800-160 MG TAB 1 tab by mouth twice daily TRIMETHOPRIM-SULFAMETHOXAZOLE 50371969429 No Longer Active Sahara Rodriguez MD PhD Active [facility] PROBIOTIC ORAL CHEW 2 daily po PROBIOTIC PRODUCT 69881682674 No Longer Active Sahara Rodriguez MD PhD Active BACTRIM DS 800-160 MG TABS 1 po BID x 7 days SULFAMETHOXAZOLE-TRIMETHOPRIM 75421737614 No Longer Active Vishal Hui MD Active CHANTIX STARTING MONTH EARNEST 0.5 MG X 11 & 1 MG X 42 TABS 0.5mg daily for 3 days , then 0.5mg BID for 4 days, then 1mg BID VARENICLINE TARTRATE 89953123793 No Longer Active TAMARA Gray Active VERAPAMIL HCL CR 120 MG TAB CR 1 po bid VERAPAMIL HCL 60271388378 No Longer Active Vishal Hui MD Active METOPROLOL SUCCINATE 50 MG TB24 1 tablet by mouth daily METOPROLOL SUCCINATE 55796147379 No Longer Active Vishal Hui MD Active SAPHRIS 10 MG SUBL 1 tab po bid ASENAPINE MALEATE 67538341945 No Longer Active Vishal Hui MD Active LISINOPRIL 20 MG TABS 1 tab po qd LISINOPRIL 27736975893 No Longer Active Vishal Hui MD Active LATUDA 20 MG TABS Take one by mouth daily LURASIDONE HCL 03956298326 No Longer Active Vishal Hui MD Active TRAZODONE HCL 50 MG TABS 1/2 tab po qd prn for anxiety TRAZODONE HCL 18736482634 No Longer Active Vishal Hui MD Active OMEPRAZOLE 20 MG TBEC 1 po q a.m. 30min prior to first food intake OMEPRAZOLE 88458869184 Active Vishal Hui MD Active RANITIDINE HCL 150 MG CAPS 1 twice a day RANITIDINE HCL 84065378183 Active Luigi Martínez APRN Active LINZESS 290 MCG CAPS Take one by mouth daily LINACLOTIDE 40255434799 No Longer Active Vishal Hui MD Active SAPHRIS 5 MG SUBL 1 tab po qd ASENAPINE MALEATE 56677795855 No Longer Active Vishal Hui MD Active ZALEPLON 10 MG CAPS 1 cap po every other night ZALEPLON 03469581953 No Longer Active Vishal Hui MD Active LYRICA 50 MG CAPS 1 tab po TID PREGABALIN 13694298419 No Longer Active Vishal Hui MD Active LORATADINE 10 MG TABS 1 tab po qd LORATADINE 25824789877 No Longer Active Vishal Hui MD Active VERAPAMIL HCL ER 180 MG CR-TABS 1 tab po bid VERAPAMIL HCL 19706223034 No Longer Active Vishal Hui MD Active MIRALAX POWD 1 capfull once daily POLYETHYLENE GLYCOL 3350 70147876625 No Longer Active Vishal Hui MD Active PREDNISONE 20 MG TABS 1 tab po qd PREDNISONE 40359459632 No Longer Active Renzo Thornton DO Active LEVOFLOXACIN 500 MG TABS 1 tab po qd LEVOFLOXACIN 08355904413 No Longer Active Renzo Thornton DO Active BUSPIRONE HCL 15 MG TABS 1 tab po TID BUSPIRONE HCL 11062072494 No Longer Active Renzo Thornton DO Active BENZTROPINE MESYLATE 1 MG TABS 1 tab po qd BENZTROPINE MESYLATE 39272954561 No Longer Active Renzo Thornton DO Active ATENOLOL 25 MG TABS 1 tab po qd ATENOLOL 25280832732 No Longer Active Renzo Thornton DO Active ESCITALOPRAM OXALATE 20 MG TABS 1 tab po qd ESCITALOPRAM OXALATE 73729372667 No Longer Active Renzo Thornton DO Active ADVAIR DISKUS 250-50 MCG/DOSE AEPB 1 puff BID FLUTICASONE-SALMETEROL 49874788885 No Longer Active Renzo Thornton DO Active PREDNISONE 20 MG TAB 2 tabs daily for 3 days, 1 tab daily for 3 days, 1/2 tab daily for 2 days PREDNISONE 25661153733 No Longer Active Vishal Hui MD Active CEFDINIR 300 MG CAPS by mouth twice a day CEFDINIR 63766686552 No Longer Active Vishal Hui MD Active LANSOPRAZOLE 30 MG CPDR 1 cap po qd LANSOPRAZOLE 19446558738 No Longer Active Vishal Hui MD Active BACLOFEN 20 MG TABS 1 tab po tid BACLOFEN 49105845692 No Longer Active Vishal Hui MD Active ADVAIR DISKUS 250-50 MCG/DOSE AEPB 1 puff BID ADVAIR DISKUS 250-50 MCG/DOSE AEPB FLUTICASONE-SALMETEROL Inactive ESCITALOPRAM OXALATE 20 MG TABS 1 tab po qd ESCITALOPRAM OXALATE 20 MG TABS 233743 ESCITALOPRAM OXALATE Inactive ATENOLOL 25 MG TABS 1 tab po qd ATENOLOL 25 MG TABS 376064 ATENOLOL Inactive BENZTROPINE MESYLATE 1 MG TABS 1 tab po qd BENZTROPINE MESYLATE 1 MG TABS 665126 BENZTROPINE MESYLATE Inactive BUSPIRONE HCL 15 MG TABS 1 tab po TID BUSPIRONE HCL 15 MG TABS 902675 BUSPIRONE HCL Inactive LEVOFLOXACIN 500 MG TABS 1 tab po qd LEVOFLOXACIN 500 MG TABS 199806 LEVOFLOXACIN Inactive PREDNISONE 20 MG TABS 1 tab po qd PREDNISONE 20 MG TABS 051133 PREDNISONE Inactive MIRALAX POWD 1 capfull once daily MIRALAX POWD 534185 POLYETHYLENE GLYCOL 3350 Inactive VERAPAMIL HCL ER 180 MG CR-TABS 1 tab po bid VERAPAMIL HCL ER 180 MG CR-TABS VERAPAMIL HCL Inactive LORATADINE 10 MG TABS 1 tab po qd LORATADINE 10 MG TABS 649086 LORATADINE Inactive LYRICA 50 MG CAPS 1 tab po TID LYRICA 50 MG CAPS PREGABALIN Inactive ZALEPLON 10 MG CAPS 1 cap po every other night ZALEPLON 10 MG CAPS 317887 ZALEPLON Inactive SAPHRIS 5 MG SUBL 1 tab po qd SAPHRIS 5 MG SUBL ASENAPINE MALEATE Inactive TRAZODONE HCL 50 MG TABS 1/2 tab po qd prn for anxiety TRAZODONE HCL 50 MG TABS 605222 TRAZODONE HCL Inactive LATUDA 20 MG TABS Take one by mouth daily LATUDA 20 MG TABS LURASIDONE HCL Inactive LISINOPRIL 20 MG TABS 1 tab po qd LISINOPRIL 20 MG TABS 912218 LISINOPRIL Inactive SAPHRIS 10 MG SUBL 1 [...] twice daily BACTRIM DS 800-160 MG TAB 140850 TRIMETHOPRIM-SULFAMETHOXAZOLE Inactive MULTIVITAMINS CAPS Take one by mouth daily MULTIVITAMINS CAPS MULTIPLE VITAMIN Inactive MELATONIN 3 MG CAPS 2 po q hs MELATONIN 3 MG CAPS 503981 MELATONIN Inactive KEFLEX 500 MG ORAL CAPS 1 cap QID by mouth KEFLEX 500 MG ORAL CAPS 713875 CEPHALEXIN Inactive CLINDAMYCIN HCL 150 MG CAPS 1 four times a day CLINDAMYCIN HCL 150 MG CAPS 19740326 CLINDAMYCIN HCL Inactive DIFLUCAN 150 MG TAB 1 tablet by mouth daily DIFLUCAN 150 MG TAB 502267 FLUCONAZOLE Inactive PROZAC 20 MG CAP Take one by mouth daily PROZAC 20 MG CAP 096045 FLUOXETINE HCL Inactive IBUPROFEN 600 MG TAB 1 po TID PRN IBUPROFEN 600 MG TAB 596774 IBUPROFEN Inactive VYVANSE 40 MG CAPS 1 daily, VYVANSE 40 MG CAPS LISDEXAMFETAMINE DIMESYLATE Inactive TRAZODONE HCL 100 MG TAB take 1 at bedtime TRAZODONE HCL 100 MG TAB 154471 TRAZODONE HCL Inactive AMITRIPTYLINE HCL 100 MG TAB one at hs AMITRIPTYLINE HCL 100 MG TAB 898235 AMITRIPTYLINE HCL Inactive AMLODIPINE BESYLATE 5 MG TABS 1 tablet by mouth daily AMLODIPINE BESYLATE 5 MG TABS 478852 AMLODIPINE BESYLATE Inactive LATUDA 80 MG TABS Take one by mouth daily LATUDA 80 MG TABS LURASIDONE HCL Inactive SAPHRIS 5 MG SUBL 1 po bid SAPHRIS 5 MG SUBL ASENAPINE MALEATE Inactive PREDNISONE 20 MG TAB 2 tabs daily for 4 days, 1 tab daily for 4 days, 1/2 tab daily for 4 days PREDNISONE 20 MG TAB 532454 PREDNISONE Inactive AMBIEN 5 MG ORAL TABS 1 tab at bedtime AMBIEN 5 MG ORAL TABS 061862 ZOLPIDEM TARTRATE Inactive PROZAC 20 MG ORAL CAPS 1 tab daily PROZAC 20 MG ORAL CAPS 140962 FLUOXETINE HCL Inactive ABILIFY 15 MG ORAL TABS 1 tab daily ABILIFY 15 MG ORAL TABS 134673 ARIPIPRAZOLE Inactive METOPROLOL TARTRATE 50 MG TAB 1 po bid METOPROLOL TARTRATE 50 MG TAB 313702 METOPROLOL TARTRATE Inactive TRAMADOL HCL 50 MG TABS 1-2 po TID PRN Pain TRAMADOL HCL 50 MG TABS 245060 TRAMADOL HCL Inactive PIROXICAM 20 MG CAPS 1 cap po qd PRN Pain PIROXICAM 20 MG CAPS 920985 PIROXICAM Inactive MINIPRESS 2 MG CAPS 4 cap po at night MINIPRESS 2 MG CAPS 680412 PRAZOSIN HCL Inactive MIRALAX PACK 1 po qd PRN Constipation MIRALAX PACK 942981 POLYETHYLENE GLYCOL 3350 Inactive METOPROLOL TARTRATE 25 MG ORAL TABS 1/2 tablet twice daily for heart rate and blood pressure METOPROLOL TARTRATE 25 MG ORAL TABS 316519 METOPROLOL TARTRATE Inactive VALIUM 5 MG TAB Take 1-2 tablets daily VALIUM 5 MG TAB 962517 DIAZEPAM Inactive FLAGYL 500 MG TAB 1 tablet by mouth bid FLAGYL 500 MG TAB 757003 METRONIDAZOLE Inactive DICLOFENAC POTASSIUM TABS Take 1 tablet twice a day (pt. is not sure of the dose.) DICLOFENAC POTASSIUM TABS DICLOFENAC POTASSIUM TABS Inactive ZITHROMAX Z-EARNEST 250 MG TABS 2 today and then 1 daily for 4 days ZITHROMAX Z-EARNEST 250 MG TABS 1750235 AZITHROMYCIN Inactive PREDNISONE 20 MG TABS 2 daily for 5 days then 1 daily for 5 days PREDNISONE 20 MG TABS 686174 PREDNISONE Inactive PROAIR HFA 108 (90 BASE) MCG/ACT AERS 2 puffs four times a day as needed 2015 PROAIR HFA 108 (90 BASE) MCG/ACT AERS ALBUTEROL SULFATE Inactive HYDROCODONE-ACETAMINOPHEN 5-325 MG TABS 1 to 2 four times a day as needed for pain use until can be seen by specialist HYDROCODONE- ACETAMINOPHEN 5-325 MG TABS 043595 HYDROCODONE-ACETAMINOPHEN Inactive TESSALON PERLES 100 MG CAP 1 to 2 tablets by mouth 3 times daily as needed for cough TESSALON PERLES 100 MG CAP 438703 BENZONATATE Inactive CHANTIX STARTING MONTH EARNEST 0.5 [...] Pain 2015 DICLOFENAC SODIUM 50 MG TBEC 601032 DICLOFENAC SODIUM Inactive TOPAMAX 50 MG ORAL TABS 1 tab twice daily TOPAMAX 50 MG ORAL TABS 020710 TOPIRAMATE Inactive VIIBRYD 10 MG ORAL TABS Take 1 tablet once a day VIIBRYD 10 MG ORAL TABS VILAZODONE HCL Inactive LEVOFLOXACIN 500 MG ORAL TABS po daily LEVOFLOXACIN 500 MG ORAL TABS 352606 LEVOFLOXACIN Inactive METHYLPREDNISOLONE 4 MG ORAL TABS po daily METHYLPREDNISOLONE 4 MG ORAL TABS 774867 METHYLPREDNISOLONE Inactive OXYCODONE HCL ER 10 MG ORAL T12A 1/2 tab by mouth every 4 hours prn OXYCODONE HCL ER 10 MG ORAL T12A OXYCODONE HCL Inactive FLAGYL 500 MG TAB 1 tablet by mouth bid FLAGYL 500 MG TAB 670523 METRONIDAZOLE Inactive MONISTAT 7 COMBO PACK WOODROW 100 & 2 MG-% (9GM) VAG KIT 1 applicatorful per vagina q pm x 7 MONISTAT 7 COMBO PACK WOODROW 100 & 2 MG-% (9GM) VAG KIT MICONAZOLE NITRATE Inactive BACTRIM DS 800-160 MG TABS 1 twice a day BACTRIM DS 800-160 MG TABS 982994 SULFAMETHOXAZOLE-TRIMETHOPRIM Inactive TRAMADOL HCL 50 MG TABS 1/2-1 tab TID PRN TRAMADOL HCL 50 MG TABS 184640 TRAMADOL HCL Inactive ABILIFY MAINTENA 400 MG IM SUSR 400mg injection every 26 days ABILIFY MAINTENA 400 MG IM SUSR ARIPIPRAZOLE Inactive KLONOPIN 1 MG ORAL TABS 1 tab po TID KLONOPIN 1 MG ORAL TABS 325218 CLONAZEPAM Inactive ADVAIR DISKUS 250-50 MCG/DOSE INH AEPB 1 puff twice a day for asthma ADVAIR DISKUS 250-50 MCG/DOSE INH AEPB FLUTICASONE- SALMETEROL Inactive BENADRYL 25 MG CAP 4 po at bedtime for insomnia BENADRYL 25 MG CAP DIPHENHYDRAMINE HCL Inactive PREDNISONE 20 MG TABS 2 daily for 5 days then 1 daily for 5 days PREDNISONE 20 MG TABS 488353 PREDNISONE Inactive HYDROCODONE-ACETAMINOPHEN 5-325 MG ORAL TABS 1 tab two times a day HYDROCODONE-ACETAMINOPHEN 5-325 MG ORAL TABS 310915 HYDROCODONE-ACETAMINOPHEN Inactive CEFDINIR 300 MG CAPS by mouth twice a day CEFDINIR 300 MG CAPS 528091 CEFDINIR Inactive PREDNISONE 20 MG TAB 2 tabs daily for 3 days, 1 tab daily for 3 days, 1/2 tab daily for 2 days PREDNISONE 20 MG TAB 089598 PREDNISONE Inactive BACTRIM DS 800-160 MG TABS 1 po BID x 7 days BACTRIM DS 800-160 MG TABS 19820521 SULFAMETHOXAZOLE-TRIMETHOPRIM Inactive DIFLUCAN 150 MG TABS 1 pill every other day x 2 doses DIFLUCAN 150 MG TABS 097989 FLUCONAZOLE Inactive BACTRIM DS 800-160 MG TABS 1 pill by mouth twice daily BACTRIM DS 800-160 MG TABS 507861 SULFAMETHOXAZOLE-TRIMETHOPRIM Inactive KEFLEX 500 MG CAP 1 po TID x 10 days KEFLEX 500 MG CAP 282645 CEPHALEXIN Inactive Advance Directives Directive Description Start [...] 369 10^3/MM^3 10*3/mm3 142-424 Lab Report: Chlamydia/GC APTIMA/[id number] - Lab chlamydia DNA probe NOT DETECTED NOT DETECTED Lab Report: Chlamydia/GC APTIMA/[id number] - Microbiology Neisseria gonorrhoeae DNA probe NOT DETECTED NOT DETECTED Lab Report: Comp. Metabolic Panel - Chemistry sodium, serum 142 mmol/L 546-519 3765/06/08 carbon dioxide, venous blood 27.6 mmol/L 21.0-32.0 potassium, serum 4.0 mmol/L 3.5-5.2 chloride, serum 105 mmol/L 98-107 blood glucose 95 mg/dL 65-110 urea nitrogen, blood 8 mg/dL 7-18 creatinine, serum 0.75 mg/dL 0.55-1.30 alanine aminotransferase (SGPT), serum 49 U/L -78 aspartate aminotransferase (SGOT), serum 28 U/L 15-37 calcium, serum 9.4 mg/dL 8.5-10.1 bilirubin, serum, total 0.30 mg/dL 0.00-1.00 sodium, serum 140 mmol/L 992-170 1045/08/08 carbon dioxide, venous blood 33.7 mmol/L 21.0-32.0 [...] mg/dL Encounters Code Encounter Date Provider Facility CPT-23549 Level 3 Est. Patient 11:47:37 IAP DISPLAYS ANALYST Ahmet Carbajal MD [facility] CPT-43370 Level 3 Est. Patient 10:40:11 IAP DISPLAYS ANALYST Ahmet Carbajal MD [facility] CPT-31938 Level 3 Est. Patient 15:07:06 IAP DISPLAYS ANALYST Neeraj Collins MD [facility] CPT-76326 Level 4 Est. Patient 14:45:00 IAP DISPLAYS ANALYST Ahmet Carbajal MD [facility] CPT-91387 Level 3 Est. Patient 13:59:59 CDT Luigi Martínez [facility] CPT-42345 Level 3 Est. Patient 18:18:53 CDT Neeraj Collins MD [facility] CPT-34739 Level 3 Est. Patient 15:50:44 CDT Vishal Hui MD [facility] CPT-40201 Level 3 Est. Patient 11:36:17 CDT Ahmet Carbajal MD [facility] CPT-53599 Level 3 Est. Patient 13:29:16 CDT Vishal Hui MD [facility] CPT-15296 Level 3 Est. Patient 14:27:52 CDT Neeraj Collins MD [facility] CPT-55933 Level 3 Est. Patient 08:56:03 CDT Luigi Martínez [facility] CPT-75858 Level 4 Est. Patient 12:11:48 CDT Fabiola Johnson [facility] CPT-65314 Level 3 New Patient 16:53:37 CDT Albert Caldera MD [facility] CPT-15956 Level 3 Est. Patient 11:25:49 CDT Renzo Thornton DO [facility] CPT-65456 Level 3 Est. Patient 15:22:01 CDT Ahmet Carbajal MD [facility] CPT-43021 Level 4 Est. Patient 09:00:51 IAP DISPLAYS ANALYST Vishal Hui MD [facility] CPT-22311 Level 3 Est. Patient 11:37:33 IAP DISPLAYS ANALYST Vishal Hui MD [facility] CPT-09301 Level 3 Est. Patient 08:41:09 IAP DISPLAYS ANALYST Vishal Hui MD [facility] CPT-26714 Level 4 Est. Patient 10:19:35 IAP DISPLAYS ANALYST Vishal Hui MD [facility] CPT-59649 Level 3 Est. Patient 13:35:45 CDT Vishal Hui MD [facility] CPT-74274 Level 4 Est. Patient 10:08:37 CDT Vishal Hui MD [facility] CPT-29935 Level 3 Est. Patient 11:22:10 CDT Vishal Hui MD [facility] CPT-83966 Level 3 Est. Patient 11:03:32 CDT Sahara Rodriguez MD PhD [facility] CPT-79890 Level 3 Est. Patient 09:41:35 CDT Vishal Hui MD [facility] CPT-74497 Level 3 Est. Patient 12:00:41 CDT Neeraj Collins MD [facility] CPT-32337 Level 3 Est. Patient 09:16:24 CDT Vishal Hui MD [facility] CPT-21917 Level 4 Est. Patient 13:59:09 CDT Nereaj Collins MD [facility] CPT-09686 Level 3 Est. Patient 15:19:43 CDT Renzo Thornton DO [facility] CPT-12107 Level 3 Est. Patient 18:10:26 CDT Sahara Rodriguez MD PhD [facility]-82654 Level 3 Est. Patient 14:49:50 CDT Vishal Hui MD [facility] [place] CPT-34998 Level 4 Est. Patient 18:41:46 CDT Neeraj Collins MD [facility] [place] CPT-42665 Level 4 Est. Patient 09:18:38 IAP DISPLAYS ANALYST Vishal Hui MD [facility] CPT-62899 Level 3 Est. Patient 14:43:55 IAP DISPLAYS ANALYST Vishal Hui MD [facility] [place] CPT-42841 Level 3 Est. Patient 15:26:33 IAP DISPLAYS ANALYST Sahara Rodriguez MD [facility] CPT-60079 Level 3 Est. Patient 10:32:14 IAP DISPLAYS ANALYST Vishal Hui MD [facility] [place] CPT-58397 Level 3 Est. Patient 15:12:52 IAP DISPLAYS ANALYST Vishal Hui MD [facility] CPT-26006 Level 4 Est. Patient 09:19:27 CDT Vishal Hui MD [facility] CPT-58036 Level 3 Est. Patient 15:53:00 CDT Renzo Barajas [facility] CPT-37145 Level 3 Est. Patient 15:50:30 CDT Renzo Thornton [facility] CPT-81131 Level 3 Est. Patient 16:55:24 CDT Vishal Hui MD [facility] Procedures Code Procedure Name Date Entry Date Standard Description CPT-G0439 [facility] Annual Wellness Exam 09:30:58 IAP DISPLAYS ANALYST CPT-12116 TSH - LAB USE ONLY 08:50:26 IAP DISPLAYS ANALYST CPT-95760 CBC - LAB USE ONLY 08:50:26 IAP DISPLAYS ANALYST CPT-26445 Venipuncture Draw Fee 08:50:26 IAP DISPLAYS ANALYST CPT-61406 Abx/Therapy Injection 17:34:30 IAP DISPLAYS ANALYST CPT-80874 Nexplanon Removal with Reinsertion 14:09:32 CDT CPT-J7307 Nexplanon (Implant) 14:09:32 CDT CPT-OV Office Visit 14:09:32 CDT CPT-95301 UA w micro - LAB USE ONLY 16:21:13 CDT CPT-08935 Wet Mount - LAB USE ONLY 16:21:13 CDT CPT-97400 First Vx - Ix admin for Medicare patients 14:37:47 CDT CPT-50901 Fluzone Preservative Free Intramuscular Suspension 14:37 :47 CDT CPT-67963 Abx/Therapy Injection 13:54:22 CDT CPT-15308 Abx/Therapy Injection 08:47:09 CDT CPT-62092 Abx/Therapy Injection 13:29:56 CDT CPT-03095 Abx/Therapy Injection 08:36:16 CDT CPT-16593 Wet Mount - LAB USE ONLY 17:44:58 CDT CPT-31172 UA w micro - LAB USE ONLY 17:44:58 CDT CPT-27275 CMP - LAB USE ONLY 17:44:58 CDT CPT-03443 Venipuncture Draw Fee 17:44:58 CDT CPT-75514 Cervical Min 4V - XRAY USE ONLY 09:01:40 CDT CPT-72517 Chest 2V Frontal and Lat - XRAY USE ONLY 11:06:31 CDT CPT-51273 EKG Trac and Interp - XRAY USE ONLY 11:31:43 CDT 08/26 CPT-J3420 Vitamin B12 1000mcg (Cyanocobalamin) 08:10:26 IAP DISPLAYS ANALYST 04/12 CPT-70938 Abx/Therapy Injection 08:10:26 IAP DISPLAYS ANALYST CPT-G0438 Initial Annual Wellness Exam 19:01:01 IAP DISPLAYS ANALYST CPT-J3420 Vitamin B12 1000mcg (Cyanocobalamin) 16:57:46 CDT 08/14 CPT-84500 Recombivax HB Injection Suspension 5 MCG/0.5ML 08:37:50 IAP DISPLAYS ANALYST CPT-75748 Immunization Single Admin 08:37:50 IAP DISPLAYS ANALYST CPT-J3420 Vitamin B12 1000mcg (Cyanocobalamin) 08:32:16 IAP DISPLAYS ANALYST 03/11 CPT-84461 Abx/Therapy Injection 08:32:16 IAP DISPLAYS ANALYST CPT-89242 Chest 2V Frontal and Lat 11:46:38 IAP DISPLAYS ANALYST CPT-29791 Venipuncture Draw Fee 09:12:45 IAP DISPLAYS ANALYST CPT-J3420 Vitamin B12 1000mcg (Cyanocobalamin) 08:50:15 IAP DISPLAYS ANALYST 02/08 CPT-37316 Abx/Therapy Injection 08:50:15 IAP DISPLAYS ANALYST CPT-Cryo Cryotherapy 10:19:35 IAP DISPLAYS ANALYST CPT-000 Give Appropriate Flu Vaccine 09:22:16 CDT CPT-J3420 Vitamin B12 1000mcg (Cyanocobalamin) 19:08:57 CDT 01/11 CPT-55893 Abx/Therapy Injection 19:08:57 CDT CPT-J3420 Vitamin B12 1000mcg (Cyanocobalamin) 08:19:08 CDT 12/11 CPT-70667 Abx/Therapy Injection 08:19:08 CDT CPT-J3420 Vitamin B12 1000mcg (Cyanocobalamin) 14:48:00 CDT 11/09 CPT-27565 Abx/Therapy Injection 14:47:59 CDT CPT-J3420 Vitamin B12 1000mcg (Cyanocobalamin) 08:34:04 CDT 10/09 CPT-68698 Abx/Therapy Injection 08:34:04 CDT CPT-J3420 Vitamin B12 1000mcg (Cyanocobalamin) 09:18:52 CDT 09/11 CPT-25504 Abx/Therapy Injection 09:18:52 CDT CPT-J3420 Vitamin B12 1000mcg (Cyanocobalamin) 08:35:44 CDT 09/04 CPT-66878 Abx/Therapy Injection 08:35:44 CDT CPT-18672 Immunization Single Admin 11:07:16 CDT CPT-94707 Hepatitis B adult IM 11:07:16 CDT CPT-J3420 Vitamin B12 1000mcg (Cyanocobalamin) 11:00:49 CDT 08/28 CPT-J1040 Depo Medrol 80 mg (Methyl Prednisolone Acetate) 11:00: 49 CDT CPT-94147 Abx/Therapy Injection 11:00:49 CDT CPT-J1040 Depo Medrol 80 mg (Methyl Prednisolone Acetate) 09:16: 23 CDT CPT-J3420 Vitamin B12 1000mcg (Cyanocobalamin) 08:27:05 CDT 08/20 CPT-17358 Abx/Therapy Injection 08:27:05 CDT CPT-49934 Recombivax HB Injection Suspension 5 MCG/0.5ML 10:00:41 CDT CPT-21913 Administration single or combination vaccine inc oral 10 :00:41 CDT CPT-39363 Sono transvag pelvis non OB uterus ovaries cervix 16:36: 57 CDT CPT-67434 LS spine comp w obliq 09:50:55 IAP DISPLAYS ANALYST CPT-35708 Abd compl w upright 09:50:55 IAP DISPLAYS ANALYST CPT-J1100 Decadron 4mg (Dexamethasone) 15:51:24 IAP DISPLAYS ANALYST CPT-J1030 Depo Medrol 40 mg (Methyl Prednisolone Acetate) 15:51: 24 IAP DISPLAYS ANALYST CPT-16223 Abx/Therapy Injection 15:51:24 IAP DISPLAYS ANALYST CPT-J1100 Decadron 4mg (Dexamethasone) 15:26:33 IAP DISPLAYS ANALYST CPT-J1030 Depo Medrol 40 mg (Methyl Prednisolone Acetate) 15:26: 33 IAP DISPLAYS ANALYST CPT-61985 Sono retroperitoneal complete kidneys and bladder 17:15: 30 CDT CPT-88440 Abd compl w upright 16:09:25 CDT CPT-J1100 Decadron 8mg (Dexamethasone) 17:07:57 CDT CPT-57369 Abx/Therapy Injection 17:07:57 CDT CPT-J1100 Decadron 8mg (Dexamethasone) 16:55:24 CDT CPT-66607 Chest 2V Frontal and Lat 16:32:44 CDT
--- OUTSIDE RECORDS SUMMARY | 2016-11-05 01:04 | XMS REPORT | Clinical Summary ---
Author Author Admin, QIE Organization [employer] Address Unknown Phone Unavailable Allergies, Adverse Reactions, Alerts Allergy Name Reaction Description Start Date Severity Status Provider AMITRIPTYLINE HCL Mood changes. LDA MA Critical Active Vishal Hui MD FANAPT heart palpitations Critical Active Vishal Hui MD SEROQUEL Critical Active Visahl Hui MD AUGMENTIN Critical Active Vishal Hui [...] sites Morbid obesity 278.01 Active Juliet Kimbrough COMPARATIVE SOCIOLOGY PROFESSOR Morbid obesity 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 Active Juliet Kimbrough COMPARATIVE SOCIOLOGY PROFESSOR Dependence on other enabling machines and [...] IM SUSR Injection once per month ARIPIPRAZOLE 60770722005 Active Juliet Kimbrough APRN Active PREDNISONE 20 MG TAB 2 tabs daily for 4 days, 1 tab daily for 4 days, 1/2 tab daily for 4 days PREDNISONE 45902337140 Active Vishal Hui MD Active IMITREX 50 MG ORAL TABS 1/2 tab every 6 hours prn SUMATRIPTAN SUCCINATE 92856483309 Active Jillina Mauricio NORIEGA Active AMBIEN 5 MG ORAL TABS 1 tab at bedtime ZOLPIDEM TARTRATE 95645790965 Active Pacollina Mauricio WALTERSN Active PROZAC 20 MG ORAL CAPS 1 tab daily FLUOXETINE HCL 63745841624 Active Tataina Mauricio WALTERSN Active ABILIFY 15 MG ORAL TABS 1 tab daily ARIPIPRAZOLE 48682093859 Active Pacollina Mauricio WALTERSN Active MINIPRESS 2 MG CAPS 4 cap po at night PRAZOSIN HCL 71125055799 Active Jillina Mauricio WALTERSN Active TOPAMAX 50 MG ORAL TABS 1 tab twice daily TOPIRAMATE 24155995786 Active Jillina Mauricio WALTERSN Active SAPHRIS 5 MG SUBL 1 po bid ASENAPINE MALEATE 31515676298 No Longer Active Jillina Fralebron WALTERSN Active LATUDA 80 MG TABS Take one by mouth daily LURASIDONE HCL 47562831582 No Longer Active Luigi Martínez APRN Active AMLODIPINE BESYLATE 5 MG TABS 1 tablet by mouth daily AMLODIPINE BESYLATE 50497238831 No Longer Active Luigi Martínez APRN Active AMITRIPTYLINE HCL 100 MG TAB one at hs AMITRIPTYLINE HCL 11966561970 No Longer Active Vishal Hui MD Active TRAZODONE HCL 100 MG TAB take 1 at bedtime TRAZODONE HCL 03617691249 No Longer Active Vishal Hui MD Active VYVANSE 40 MG CAPS 1 daily, LISDEXAMFETAMINE DIMESYLATE 51057068843 No Longer Active Vishal Hui MD Active IBUPROFEN 600 MG TAB 1 po TID PRN IBUPROFEN 06478009614 No Longer Active Vishal Hui MD Active MIRALAX PACK 1 po qd PRN Constipation POLYETHYLENE GLYCOL 3350 56230187423 Active Vishal Hui MD Active PROZAC 20 MG CAP Take one by mouth daily FLUOXETINE HCL 94653372501 No Longer Active Vishal Hui MD Active ZOFRAN 4 MG TABS 1 po q6hr PRN Nausea ONDANSETRON HCL Active Vishal Hui MD Active BACTRIM DS 800-160 MG TABS 1 pill by mouth twice daily SULFAMETHOXAZOLE-TRIMETHOPRIM 31352931466 No Longer Active Sahara Rodriguez MD PhD Active DIFLUCAN 150 MG TAB 1 tablet by mouth daily FLUCONAZOLE 57431500998 No Longer Active Vishal Hui MD Active TIZANIDINE HCL 4 MG TABS 1 po q6hr PRN Muscle Spasm/Back Pain TIZANIDINE HCL 23342257245 Active Luigi Martínez APRN Active CLINDAMYCIN HCL 150 MG CAPS 1 four times a day CLINDAMYCIN HCL 22234638653 No Longer Active Neeraj Collins MD Active KEFLEX 500 MG ORAL CAPS 1 cap QID by mouth CEPHALEXIN 09546009526 No Longer Active Neeraj Collins MD Active DIFLUCAN 150 MG TABS 1 pill every other day x 2 doses FLUCONAZOLE 86624725200 No Longer Active Sahara Rodriguez MD PhD Active MELATONIN 3 MG CAPS 2 po q hs MELATONIN 92396670079 No Longer Active Sahara Rodriguez MD PhD Active MULTIVITAMINS CAPS Take one by mouth daily MULTIPLE VITAMIN 33352519601 No Longer Active Sahara Rodriguez MD PhD Active BACTRIM DS 800-160 MG TAB 1 tab by mouth twice daily TRIMETHOPRIM-SULFAMETHOXAZOLE 68270348877 No Longer Active Sahara Rodriguez MD PhD Active [facility] PROBIOTIC ORAL CHEW 2 daily po PROBIOTIC PRODUCT 19212616046 No Longer Active Sahara Rodriguez MD PhD Active BACTRIM DS 800-160 MG TABS 1 po BID x 7 days SULFAMETHOXAZOLE-TRIMETHOPRIM 48573533906 No Longer Active Vishal Hui MD Active CHANTIX STARTING MONTH EARNEST 0.5 MG X 11 & 1 MG X 42 TABS 0.5mg daily for 3 days , then 0.5mg BID for 4 days, then 1mg BID VARENICLINE TARTRATE 78381408332 No Longer Active TAMARA Gray Active METOPROLOL TARTRATE 50 MG TAB 1 po bid METOPROLOL TARTRATE 42777221508 Active Vishal Hui MD Active VERAPAMIL HCL CR 120 MG TAB CR 1 po bid VERAPAMIL HCL 70867755843 No Longer Active Vishal Hui MD Active METOPROLOL SUCCINATE 50 MG TB24 1 tablet by mouth daily METOPROLOL SUCCINATE 38251508545 No Longer Active Vishal Hui MD Active TRAMADOL HCL 50 MG TABS 1-2 po TID PRN Pain TRAMADOL HCL 85080924465 Active Luigi Martínez APRN Active SAPHRIS 10 MG SUBL 1 tab po bid ASENAPINE MALEATE 53406563585 No Longer Active Vishal Hui MD Active LISINOPRIL 20 MG TABS 1 tab po qd LISINOPRIL 55736587740 No Longer Active Vishal Hui MD Active BENADRYL 25 MG CAP 2 po tid prn anxiety DIPHENHYDRAMINE HCL 18533994681 Active Vishal Hui MD Active LATUDA 20 MG TABS Take one by mouth daily LURASIDONE HCL 63862199453 No Longer Active Vishal Hui MD Active TRAZODONE HCL 50 MG TABS 1/2 tab po qd prn for anxiety TRAZODONE HCL 81082802712 No Longer Active Vishal Hui MD Active PIROXICAM 20 MG CAPS 1 cap po qd PRN Pain PIROXICAM 78179471573 Active Vishal Hui MD Active OMEPRAZOLE 20 MG TBEC 1 po q a.m. 30min prior to first food intake OMEPRAZOLE 10118899570 Active Vishal Hui MD Active RANITIDINE HCL 150 MG CAPS 1 twice a day RANITIDINE HCL 08214688825 Active Vishal Hui MD Active LINZESS 290 MCG CAPS Take one by mouth daily LINACLOTIDE 02510939477 No Longer Active Vishal Hui MD Active SAPHRIS 5 MG SUBL 1 tab po qd ASENAPINE MALEATE 49962606435 No Longer Active Vishal Hui MD Active ZALEPLON 10 MG CAPS 1 cap po every other night ZALEPLON 63174369582 No Longer Active Vishal Hui MD Active LYRICA 50 MG CAPS 1 tab po TID PREGABALIN 29233809763 No Longer Active Vishal Hui MD Active LORATADINE 10 MG TABS 1 tab po qd LORATADINE 57675883598 No Longer Active Vishal Hui MD Active VERAPAMIL HCL ER 180 MG CR-TABS 1 tab po bid VERAPAMIL HCL 52788479200 No Longer Active Vishal Hui MD Active MIRALAX POWD 1 capfull once daily POLYETHYLENE GLYCOL 3350 87721242868 No Longer Active Vishal Hui MD Active PREDNISONE 20 MG TABS 1 tab po qd PREDNISONE 65314430049 No Longer Active Renzo Thornton DO Active LEVOFLOXACIN 500 MG TABS 1 tab po qd LEVOFLOXACIN 08856101456 No Longer Active Renzo Thornton DO Active BUSPIRONE HCL 15 MG TABS 1 tab po TID BUSPIRONE HCL 37936575691 No Longer Active Renzo Thornton DO Active BENZTROPINE MESYLATE 1 MG TABS 1 tab po qd BENZTROPINE MESYLATE 70140234716 No Longer Active Renzo Thornton DO Active ATENOLOL 25 MG TABS 1 tab po qd ATENOLOL 96130128456 No Longer Active Renzo Thornton DO Active ESCITALOPRAM OXALATE 20 MG TABS 1 tab po qd ESCITALOPRAM OXALATE 56023689566 No Longer Active Renzo Thornton DO Active ADVAIR DISKUS 250-50 MCG/DOSE AEPB 1 puff BID FLUTICASONE-SALMETEROL 20268042439 No Longer Active Renzo Thornton DO Active PREDNISONE 20 MG TAB 2 tabs daily for 3 days, 1 tab daily for 3 days, 1/2 tab daily for 2 days PREDNISONE 48252240711 No Longer Active Vishal Hui MD Active CEFDINIR 300 MG CAPS by mouth twice a day CEFDINIR 22238458163 No Longer Active Vishal Hui MD Active LANSOPRAZOLE 30 MG CPDR 1 cap po qd LANSOPRAZOLE 04339941683 No Longer Active Vishal Hui MD Active BACLOFEN 20 MG TABS 1 tab po tid BACLOFEN 56956935708 No Longer Active Vishal Hui MD Active ADVAIR DISKUS 250-50 MCG/DOSE AEPB 1 puff BID ADVAIR DISKUS 250-50 MCG/DOSE AEPB FLUTICASONE-SALMETEROL Inactive ESCITALOPRAM OXALATE 20 MG TABS 1 tab po qd ESCITALOPRAM OXALATE 20 MG TABS 957657 ESCITALOPRAM OXALATE Inactive ATENOLOL 25 MG TABS 1 tab po qd ATENOLOL 25 MG TABS 806669 ATENOLOL Inactive BENZTROPINE MESYLATE 1 MG TABS 1 tab po qd BENZTROPINE MESYLATE 1 MG TABS 466204 BENZTROPINE MESYLATE Inactive BUSPIRONE HCL 15 MG TABS 1 tab po TID BUSPIRONE HCL 15 MG TABS 042185 BUSPIRONE HCL Inactive LEVOFLOXACIN 500 MG TABS 1 tab po qd LEVOFLOXACIN 500 MG TABS 520653 LEVOFLOXACIN Inactive PREDNISONE 20 MG TABS 1 tab po qd PREDNISONE 20 MG TABS 876597 PREDNISONE Inactive MIRALAX POWD 1 capfull once daily MIRALAX POWD 202570 POLYETHYLENE GLYCOL 3350 Inactive VERAPAMIL HCL ER 180 MG CR-TABS 1 tab po bid VERAPAMIL HCL ER 180 MG CR-TABS VERAPAMIL HCL Inactive LORATADINE 10 MG TABS 1 tab po qd LORATADINE 10 MG TABS 321901 LORATADINE Inactive LYRICA 50 MG CAPS 1 tab po TID LYRICA 50 MG CAPS PREGABALIN Inactive ZALEPLON 10 MG CAPS 1 cap po every other night ZALEPLON 10 MG CAPS 082766 ZALEPLON Inactive SAPHRIS 5 MG SUBL 1 tab po qd SAPHRIS 5 MG SUBL ASENAPINE MALEATE Inactive TRAZODONE HCL 50 MG TABS 1/2 tab po qd prn for anxiety TRAZODONE HCL 50 MG TABS 030037 TRAZODONE HCL Inactive LATUDA 20 MG TABS Take one by mouth daily LATUDA 20 MG TABS LURASIDONE HCL Inactive LISINOPRIL 20 MG TABS 1 tab po qd LISINOPRIL 20 MG TABS 653382 LISINOPRIL Inactive SAPHRIS 10 MG SUBL 1 [...] twice daily BACTRIM DS 800-160 MG TAB 984591 TRIMETHOPRIM-SULFAMETHOXAZOLE Inactive MULTIVITAMINS CAPS Take one by mouth daily MULTIVITAMINS CAPS MULTIPLE VITAMIN Inactive MELATONIN 3 MG CAPS 2 po q hs MELATONIN 3 MG CAPS 873096 MELATONIN Inactive KEFLEX 500 MG ORAL CAPS 1 cap QID by mouth KEFLEX 500 MG ORAL CAPS 202340 CEPHALEXIN Inactive CLINDAMYCIN HCL 150 MG CAPS 1 four times a day CLINDAMYCIN HCL 150 MG CAPS 007374 CLINDAMYCIN HCL Inactive DIFLUCAN 150 MG TAB 1 tablet by mouth daily DIFLUCAN 150 MG TAB 797874 FLUCONAZOLE Inactive PROZAC 20 MG CAP Take one by mouth daily PROZAC 20 MG CAP 918373 FLUOXETINE HCL Inactive IBUPROFEN 600 MG TAB 1 po TID PRN IBUPROFEN 600 MG TAB 311277 IBUPROFEN Inactive VYVANSE 40 MG CAPS 1 daily, VYVANSE 40 MG CAPS LISDEXAMFETAMINE DIMESYLATE Inactive TRAZODONE HCL 100 MG TAB take 1 at bedtime TRAZODONE HCL 100 MG TAB 542226 TRAZODONE HCL Inactive AMITRIPTYLINE HCL 100 MG TAB one at hs AMITRIPTYLINE HCL 100 MG TAB 085421 AMITRIPTYLINE HCL Inactive AMLODIPINE BESYLATE 5 MG TABS 1 tablet by mouth daily AMLODIPINE BESYLATE 5 MG TABS 825499 AMLODIPINE BESYLATE Inactive LATUDA 80 MG TABS Take one by mouth daily LATUDA 80 MG TABS LURASIDONE HCL Inactive SAPHRIS 5 MG SUBL 1 po bid SAPHRIS 5 MG SUBL ASENAPINE MALEATE Inactive CEFDINIR 300 MG CAPS by mouth twice a day CEFDINIR 300 MG CAPS 115439 CEFDINIR Inactive PREDNISONE 20 MG TAB 2 tabs daily for 3 days, 1 tab daily for 3 days, 1/2 tab daily for 2 days PREDNISONE 20 MG TAB 593437 PREDNISONE Inactive BACTRIM DS 800-160 MG TABS 1 po BID x 7 days BACTRIM DS 800-160 MG TABS 19820521 SULFAMETHOXAZOLE-TRIMETHOPRIM Inactive DIFLUCAN 150 MG TABS 1 pill every other day x 2 doses DIFLUCAN 150 MG TABS 037363 FLUCONAZOLE Inactive BACTRIM DS 800-160 MG TABS [...] % 11.6-14.8 platelet count 394 10^3/MM^3 10*3/mm3 834-814 0287/01/11 leukocyte count, blood 13.8 10^3/MM^3 10*3/mm3 4.6-10.2 [...] Panel - Chemistry sodium, serum 139 mmol/L 603-930 5587/12/03 carbon dioxide, venous blood 28.5 mmol/L 21.0-32.0 [...] 5.5 % 4.3-6.0 cholesterol, serum 159 mg/dL 006-626 6273/12/03 triglyceride, serum, fasting 118 mg/dL 30-200 HDL [...] ... - Chemistry sodium, serum 140 mmol/L 754-460 9981/05/28 potassium, serum 4.2 mmol/L 3.5-5.2 chloride, serum [...] Panel - Chemistry sodium, serum 141 mmol/L 656-103 6154 potassium, serum 4.3 mmol/L 3.5-5.2 chloride, serum 106 mmol/L 98-107 carbon dioxide, venous blood 25.7 mmol/L 21.0-32.0 blood glucose 119 mg/dL 65-110 urea nitrogen, blood 22 mg/dL 7-18 creatinine, serum 0.90 mg/dL 0.60-1.30 alanine aminotransferase (SGPT), serum 28 U/L 12-78 aspartate aminotransferase (SGOT), serum 13 U/L 15-37 calcium, serum 8.5 mg/dL 8.5-10.1 bilirubin, serum, total 0.20 mg/dL 0.00-1.00 sodium, serum 139 mmol/L 274-350 7901/12/22 carbon dioxide, venous blood 26.8 mmol/L 21.0-32.0 potassium, serum 4.2 mmol/L 3.5-5.2 chloride, serum 103 mmol/L 98-107 blood glucose 115 mg/dL 65-110 urea nitrogen, blood 20 mg/dL 7-18 creatinine, serum 0.90 mg/dL 0.55-1.30 alanine aminotransferase (SGPT), serum 38 U/L -78 aspartate aminotransferase (SGOT), serum 19 U/L 15-37 calcium, serum 8.6 mg/dL 8.5-10.1 bilirubin, serum, total 0.30 mg/dL 0.00-1.00 sodium, serum 139 mmol/L 465-102 8693/01/11 carbon dioxide, venous blood 26.6 mmol/L 21.0-32.0 [...] Rate - Chemistry sodium, serum 139 mmol/L 312-627 4502/12/11 carbon dioxide, venous blood 25.4 mmol/L 21.0-32.0 [...] 5.5 5.0-8.5 Lab Report: UADIP W/MICRO, AUTO, [facility] [place] - Chemistry RBC, urine, dipstick Negative Negative protein, total urine random Negative mg/dL Negative human chorionic gonadotropin, urine, qualitative (urine test) Negative Negative Lab Report: UADIP W/MICRO, AUTO, [facility] [place] - Urinalysis pH, urine, semiquantitative 7.0 5.0-8.5 specific gravity, urine 1.025 1.000-1.030 appearance, urine Clear Clear urine color Yellow Colorless;Lightyellow;Straw;Yellow urobilinogen, urine, semiquantitative (dipstick) 0.2 Normal leukocyte esterase, urine, by dipstick Negative Negative nitrite, urine, semiquantitative Negative Negative glucose, urine, semiquantitative Negative Negative ketones, urine, by test strip Negative Negative bilirubin, urine Negative Negative Lab Report: Varicella-Zoater Inga IgG,IgM/25292, HEP Be Antibody/556, RUB ... - Serology rubella antibody, serum, IgG 2.88 Encounters Code Encounter Date Provider Facility CPT-29462 Level 4 Est. Patient 09:00:51 AIR HAMMER STRIPPER Vishal Hui MD [facility] CPT-59398 Level 3 Est. Patient 11:37:33 AIR HAMMER STRIPPER Vishal Hui MD [facility] CPT-60626 Level 3 Est. Patient 08:41:09 AIR HAMMER STRIPPER Vishal Hui MD [facility] CPT-60472 Level 4 Est. Patient 10:19:35 AIR HAMMER STRIPPER [facility] Level 3 Est. Patient 13:35:45 CDT Vishal Hui MD [facility] CPT-39321 Level 4 Est. Patient 10:08:37 CDT Vishal Hui MD [facility]-55757 Level 3 Est. Patient 11:22:10 CDT Vishal Hui MD [facility]-51469 Level 3 Est. Patient 11:03:32 CDT Sahara Rodriguez MD [facility]-60141 Level 3 Est. Patient 09:41:35 CDT Vishal Hui MD [facility]-35315 Level 3 Est. Patient 12:00:41 CDT Neeraj Collins MD [facility]-83126 Level 3 Est. Patient 09:16:24 CDT Vishal Hui MD [facility]-66487 Level 4 Est. Patient 13:59:09 CDT Neeraj Collins MD [facility]-98975 Level 3 Est. Patient 15:19:43 CDT Renzo Thornton DO [facility]-61000 Level 3 Est. Patient 18:10:26 CDT Sahara Rodriguez MD [facility]-66960 Level 3 Est. Patient 14:49:50 CDT Vishal Hui MD [facility]-56047 Level 4 Est. Patient 18:41:46 CDT Neeraj Collins MD [facility]-43019 Level 4 Est. Patient 09:18:38 AIR HAMMER STRIPPER Vishal Hui MD [facility]-86248 Level 3 Est. Patient 14:43:55 AIR HAMMER STRIPPER Vishal Hui MD [facility]-53947 Level 3 Est. Patient 15:26:33 AIR HAMMER STRIPPER Sahara Rodriguez MD PhD [facility] CPT-37419 Level 3 Est. Patient 10:32:14 AIR HAMMER STRIPPER Vishal Hui MD [facility] CPT-35643 Level 3 Est. Patient 15:12:52 AIR HAMMER STRIPPER Vishal Hui MD [facility] CPT-26820 Level 4 Est. Patient 09:19:27 CDT Vishal Hui MD [facility] CPT-72134 Level 3 Est. Patient 15:53:00 CDT Renzo Thornton [facility] CPT-47584 Level 3 Est. Patient 15:50:30 CDT Renzo Thornton [facility] CPT-96034 Level 3 Est. Patient 16:55:24 CDT Vishal Hui MD [facility] Procedures Code Procedure Name Date Entry Date Standard Description CPT-G0438 Initial Annual Wellness Exam 19:01:01 AIR HAMMER STRIPPER CPT-J3420 Vitamin B12 1000mcg (Cyanocobalamin) 16:57:46 CDT 08/14 CPT-69957 Recombivax HB Injection Suspension 5 MCG/0.5ML 08:37:50 [employer] H[employer]MER [employer]IPPER CPT-98149 Immunization Single Admin 08:37:50 [employer]MER [employer]IPPER CPT-J3420 Vitamin B12 1000mcg (Cyanocobalamin) 08:32:16 [employer] HAMMER [employer]IPPER 03/11 CPT-68436 Abx/Therapy Injection 08:32:16 [employer]IP[employer] CPT-25843 Chest 2V Frontal and Lat 11:46:38 [employer]IP[employer] CPT-55960 Venipuncture Draw Fee 09:12:45 [employer] CPT-J3420 Vitamin B12 1000mcg (Cyanocobalamin) 08:50:15 AIR HAMMER STRIPPER 02/08 CPT-38710 Abx/Therapy Injection 08:50:15 AIR HAMMER [employer]IPPER CPT-Cryo Cryotherapy 10:19:35 [employer]IP[employer] CPT-000 Give Appropriate Flu Vaccine 09:22:16 CDT CPT-J3420 Vitamin B12 1000mcg (Cyanocobalamin) 19:08:57 CDT 01/11 CPT-64889 Abx/Therapy Injection 19:08:57 CDT CPT-J3420 Vitamin B12 1000mcg (Cyanocobalamin) 08:19:08 CDT 12/11 CPT-44395 Abx/Therapy Injection 08:19:08 CDT CPT-J3420 Vitamin B12 1000mcg (Cyanocobalamin) 14:48:00 CDT 11/09 CPT-98386 Abx/Therapy Injection 14:47:59 CDT CPT-J3420 Vitamin B12 1000mcg (Cyanocobalamin) 08:34:04 CDT 10/09 CPT-58457 Abx/Therapy Injection 08:34:04 CDT CPT-J3420 Vitamin B12 1000mcg (Cyanocobalamin) 09:18:52 CDT 09/11 CPT-76264 Abx/Therapy Injection 09:18:52 CDT CPT-J3420 Vitamin B12 1000mcg (Cyanocobalamin) 08:35:44 CDT 09/04 CPT-44786 Abx/Therapy Injection 08:35:44 CDT CPT-12777 Immunization Single Admin 11:07:16 CDT CPT-34273 Hepatitis B adult IM 11:07:16 CDT CPT-J3420 Vitamin B12 1000mcg (Cyanocobalamin) 11:00:49 CDT 08/28 CPT-J1040 Depo Medrol 80 mg (Methyl Prednisolone Acetate) 11:00: 49 CDT CPT-28078 Abx/Therapy Injection 11:00:49 CDT CPT-J1040 Depo Medrol 80 mg (Methyl Prednisolone Acetate) 09:16: 23 CDT CPT-J3420 Vitamin B12 1000mcg (Cyanocobalamin) 08:27:05 CDT 08/20 CPT-63748 Abx/Therapy Injection 08:27:05 CDT CPT-81361 Recombivax HB Injection Suspension 5 MCG/0.5ML 10:00:41 CDT CPT-12480 Administration single or combination vaccine inc oral 10 :00:41 CDT CPT-93700 Sono transvag pelvis non OB uterus ovaries cervix 16:36: 57 CDT CPT-81954 LS spine comp w obliq 09:50:55 [employer] CPT-56057 Abd compl w upright 09:50:55 [employer] CPT-J1100 Decadron 4mg (Dexamethasone) 15:51:24 [employer] CPT-J1030 Depo Medrol 40 mg (Methyl Prednisolone Acetate) 15:51: 24 [employer] CPT-10687 Abx/Therapy Injection 15:51:24 [employer] CPT-J1100 Decadron 4mg (Dexamethasone) 15:26:33 [employer] CPT-J1030 Depo Medrol 40 mg (Methyl Prednisolone Acetate) 15:26: 33 [employer] CPT-26098 Sono retroperitoneal complete kidneys and bladder 17:15: 30 CDT CPT-81671 Abd compl w upright 16:09:25 CDT CPT-J1100 Decadron 8mg (Dexamethasone) 17:07:57 CDT CPT-34729 Abx/Therapy Injection 17:07:57 CDT CPT-J1100 Decadron 8mg (Dexamethasone) 16:55:24 CDT CPT-49592 Chest 2V Frontal and Lat 16:32:44 CDT
--- OUTSIDE RECORDS SUMMARY | 2016-11-05 01:07 | XMS REPORT | Clinical Summary ---
Author Author Admin, [employer] Organization [facility] [employer] Address Unknown Phone Unavailable Allergies, Adverse [...] Shortness of breath 786.05 Active Fabiola Johnson [employer]OR VE[employer]LE INSPECTOR Shortness of breath Nocturnal hypoxia 799.02 Active Fabiola Johnson [employer] VE[employer]LE INSPECTOR Hypoxemia Neck pain 723.1 Active Luigi Martínez [employer] VE[employer] INSPECTOR Cervicalgia Vaginal discharge 623.5 Active Neeraj Collins [...] can be seen by specialist HYDROCODONE- ACETAMINOPHEN 45377641596 No Longer Active Vishal Hui MD Active PROAIR HFA 108 (90 BASE) MCG/ACT AERS 2 puffs four times a day as needed 2015 ALBUTEROL SULFATE 91986211756 No Longer Active Vishal Hui MD Active PREDNISONE 20 MG TABS 2 daily for 5 days then 1 daily for 5 days PREDNISONE 12714850887 No Longer Active Vishal Hui MD Active ZITHROMAX Z-EARNEST 250 MG TABS 2 today and then 1 daily for 4 days AZITHROMYCIN 41267130697 No Longer Active Vishal Hui MD Active DICLOFENAC SODIUM 50 MG TBEC 1 tablet by mouth four times daily PRN Pain 2015 DICLOFENAC SODIUM 18650746863 Active Vishal Hui MD Active DICLOFENAC POTASSIUM TABS Take 1 tablet twice a day (pt. is not sure of the dose.) DICLOFENAC POTASSIUM TABS 83903708202 No Longer Active Vishal Hui MD Active VERAPAMIL HCL ER 120 MG ORAL CR-TABS Take 1 tablet by mouth twice a day. VERAPAMIL HCL 72986946966 Active Vishal Hui MD Active FLAGYL 500 MG TAB 1 tablet by mouth bid METRONIDAZOLE 51245232699 No Longer Active Vishal Hui MD Active ABILIFCielo MAINTENA 400 MG IM SUSR 400mg injection every 28 days ARIPIPRAZOLE 90287535657 Active Silvia Wilian Casey LPN Active FLUTICASONE PROPIONATE 50 MCG/ACT SUSP 2 sprays each nostril daily before bed. FLUTICASONE PROPIONATE 84295942508 Active Fabiola Johnson APRN Active ADZENYS XR-ODT 6.3 MG ORAL TBED 1 tab po daily for ADHD AMPHETAMINE 67762655387 Active Fabiola Johnson APRN Active BENADRYL 25 MG CAP 4 po at bedtime for insomnia DIPHENHYDRAMINE HCL 29905066054 Active Fabiola Johnson APRN Active KLONOPIN 1 MG ORAL TABS 1 tab po TID CLONAZEPAM 20404021915 Active Fabiola Johnson APRN Active VALIUM 5 MG TAB Take 1-2 tablets daily DIAZEPAM 76759864613 No Longer Active Fabiola Johnson APRN Active METOPROLOL TARTRATE 25 MG ORAL TABS 1/2 tablet twice daily for heart rate and blood pressure METOPROLOL TARTRATE 79595876958 No Longer Active Fabiola Johnson APRN Active MIRALAX ORAL POWD 17GMS DAILY IN WATER POLYETHYLENE GLYCOL 3350 81592411131 Active Vishal Hui MD Active VIIBRYD 10 MG ORAL TABS Take 1 tablet once a day VILAZODONE HCL 87398709087 Active Ahmet Carbajal MD Active MIRALAX PACK 1 po qd PRN Constipation POLYETHYLENE GLYCOL 3350 48219612973 No Longer Active Ahmet Carbajal MD Active MINIPRESS 2 MG CAPS 4 cap po at night PRAZOSIN HCL 77378128978 No Longer Active Ahmet Carbajal MD Active PIROXICAM 20 MG CAPS 1 cap po qd PRN Pain PIROXICAM 20585280797 No Longer Active Ahmet Carbajal MD Active TRAMADOL HCL 50 MG TABS 1-2 po TID PRN Pain TRAMADOL HCL 11102469897 No Longer Active Ahmet Carbajal MD Active METOPROLOL TARTRATE 50 MG TAB 1 po bid METOPROLOL TARTRATE 38554942895 No Longer Active Ahmet Carbajal MD Active ABILIFY 15 MG ORAL TABS 1 tab daily ARIPIPRAZOLE 38729998318 No Longer Active Ahmet Carbajal MD Active PROZAC 20 MG ORAL CAPS 1 tab daily FLUOXETINE HCL 85437239544 No Longer Active Ahmet Carbajal MD Active AMBIEN 5 MG ORAL TABS 1 tab at bedtime ZOLPIDEM TARTRATE 15251724638 No Longer Active Ahmet Carbajal MD Active PREDNISONE 20 MG TAB 2 tabs daily for 4 days, 1 tab daily for 4 days, 1/2 tab daily for 4 days PREDNISONE 31360925173 No Longer Active Ahmet Carbajal MD Active KEFLEX 500 MG CAP 1 po TID x 10 days CEPHALEXIN 50330096564 No Longer Active Vishal Hui MD Active IMITREX 50 MG ORAL TABS 1/2 tab every 6 hours prn SUMATRIPTAN SUCCINATE 43963472822 Active Jillina Mauricio NORIEGA Active TOPAMAX 50 MG ORAL TABS 1 tab twice daily TOPIRAMATE 52961668512 Active Vishal Hui MD Active SAPHRIS 5 MG SUBL 1 po bid ASENAPINE MALEATE 11371857556 No Longer Active Pacollina Mauricio NORIEGA Active LATUDA 80 MG TABS Take one by mouth daily LURASIDONE HCL 24351384722 No Longer Active Jillina Fralebron [employer] VE[employer]ICLE INSPECTOR Active AMLODIPINE BESYLATE 5 MG TABS 1 tablet by mouth daily AMLODIPINE BESYLATE 57919798681 No Longer Active Jillina Fralebron MOTOR VEHICLE 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 Active AMITRIPTYLINE HCL 100 MG TAB one at hs AMITRIPTYLINE HCL 60226656198 No Longer Active Vishal Hui MD Active TRAZODONE HCL 100 MG TAB take 1 at bedtime TRAZODONE HCL 98131718963 No Longer Active Vishal Hui MD Active VYVANSE 40 MG CAPS 1 daily, LISDEXAMFETAMINE DIMESYLATE 30978999658 No Longer Active Vishal Hui MD Active IBUPROFEN 600 MG TAB 1 po TID PRN IBUPROFEN 30459218441 No Longer Active Vishal Hui MD Active PROZAC 20 MG CAP Take one by mouth daily FLUOXETINE HCL 33084684337 No Longer Active Vishal Hui MD Active ZOFRAN 4 MG TABS 1 po q6hr PRN Nausea ONDANSETRON HCL Active Vishal Hui MD Active BACTRIM DS 800-160 MG TABS 1 pill by mouth twice daily SULFAMETHOXAZOLE-TRIMETHOPRIM 10373499653 No Longer Active Sahara Rodriguez MD PhD Active DIFLUCAN 150 MG TAB 1 tablet by mouth daily FLUCONAZOLE 90534598582 No Longer Active Vishal Hui MD Active TIZANIDINE HCL 4 MG TABS 1 po q6hr PRN Muscle Spasm/Back Pain TIZANIDINE HCL 22695161660 Active Vishal Hui MD Active CLINDAMYCIN HCL 150 MG CAPS 1 four times a day CLINDAMYCIN HCL 48772999426 No Longer Active Neeraj Collins MD Active KEFLEX 500 MG ORAL CAPS 1 cap QID by mouth CEPHALEXIN 16658272493 No Longer Active Neeraj Collins MD Active DIFLUCAN 150 MG TABS 1 pill every other day x 2 doses FLUCONAZOLE 72192007814 No Longer Active Sahara Rodriguez MD PhD Active MELATONIN 3 MG CAPS 2 po q hs MELATONIN 41749796245 No Longer Active Sahara Rodriguez MD PhD Active MULTIVITAMINS CAPS Take one by mouth daily MULTIPLE VITAMIN 86233874754 No Longer Active Sahara Rodriguez MD PhD Active BACTRIM DS 800-160 MG TAB 1 tab by mouth twice daily TRIMETHOPRIM-SULFAMETHOXAZOLE 46489465757 No Longer Active Sahara Rodriguez MD PhD Active [facility] PROBIOTIC ORAL CHEW 2 daily po PROBIOTIC PRODUCT 89815857385 No Longer Active Sahara Rodriguez MD PhD Active BACTRIM DS 800-160 MG TABS 1 po BID x 7 days SULFAMETHOXAZOLE-TRIMETHOPRIM 05530881526 No Longer Active Vishal Hui MD Active CHANTIX STARTING MONTH EARNEST 0.5 MG X 11 & 1 MG X 42 TABS 0.5mg daily for 3 days , then 0.5mg BID for 4 days, then 1mg BID VARENICLINE TARTRATE 86623883269 No Longer Active TAMARA Gray Active VERAPAMIL HCL CR 120 MG TAB CR 1 po bid VERAPAMIL HCL 00234481595 No Longer Active Vishal Hui MD Active METOPROLOL SUCCINATE 50 MG TB24 1 tablet by mouth daily METOPROLOL SUCCINATE 01505254860 No Longer Active Vishal Hui MD Active SAPHRIS 10 MG SUBL 1 tab po bid ASENAPINE MALEATE 58430499136 No Longer Active Vishal Hui MD Active LISINOPRIL 20 MG TABS 1 tab po qd LISINOPRIL 63779880370 No Longer Active Vishal Hui MD Active LATUDA 20 MG TABS Take one by mouth daily LURASIDONE HCL 25554298533 No Longer Active Vishal Hui MD Active TRAZODONE HCL 50 MG TABS 1/2 tab po qd prn for anxiety TRAZODONE HCL 21534253208 No Longer Active Vishal Hui MD Active OMEPRAZOLE 20 MG TBEC 1 po q a.m. 30min prior to first food intake OMEPRAZOLE 49083739174 Active Vishal Hui MD Active RANITIDINE HCL 150 MG CAPS 1 twice a day RANITIDINE HCL 19563752126 Active Luigi Martínez MOTOR VE[employer]ICLE INSPECTOR Active LINZESS 290 MCG CAPS Take one by mouth daily LINACLOTIDE 85602694242 No Longer Active Vishal Hui MD Active SAPHRIS 5 MG SUBL 1 tab po qd ASENAPINE MALEATE 40931383976 No Longer Active Vishal Hui MD Active ZALEPLON 10 MG CAPS 1 cap po every other night ZALEPLON 43170212560 No Longer Active Vishal Hui MD Active LYRICA 50 MG CAPS 1 tab po TID PREGABALIN 66030918008 No Longer Active Vishal Hui MD Active LORATADINE 10 MG TABS 1 tab po qd LORATADINE 89070678619 No Longer Active Vishal Hui MD Active VERAPAMIL HCL ER 180 MG CR-TABS 1 tab po bid VERAPAMIL HCL 26594584324 No Longer Active Vishal Hui MD Active MIRALAX POWD 1 capfull once daily POLYETHYLENE GLYCOL 3350 24102672448 No Longer Active Vishal Hui MD Active PREDNISONE 20 MG TABS 1 tab po qd PREDNISONE 75425933839 No Longer Active Renzo Thornton DO Active LEVOFLOXACIN 500 MG TABS 1 tab po qd LEVOFLOXACIN 26515344009 No Longer Active Renzo Thornton DO Active BUSPIRONE HCL 15 MG TABS 1 tab po TID BUSPIRONE HCL 64120599980 No Longer Active Renzo Thornton DO Active BENZTROPINE MESYLATE 1 MG TABS 1 tab po qd BENZTROPINE MESYLATE 22683654407 No Longer Active Renzo Thornton DO Active ATENOLOL 25 MG TABS 1 tab po qd ATENOLOL 12936718116 No Longer Active Renzo Thornton DO Active ESCITALOPRAM OXALATE 20 MG TABS 1 tab po qd ESCITALOPRAM OXALATE 61088009824 No Longer Active Renzo Thornton DO Active ADVAIR DISKUS 250-50 MCG/DOSE AEPB 1 puff BID FLUTICASONE-SALMETEROL 01973185203 No Longer Active Renzo Thornton DO Active PREDNISONE 20 MG TAB 2 tabs daily for 3 days, 1 tab daily for 3 days, 1/2 tab daily for 2 days PREDNISONE 05109249647 No Longer Active Vishal Hui MD Active CEFDINIR 300 MG CAPS by mouth twice a day CEFDINIR 18261091363 No Longer Active Vishal Hui MD Active LANSOPRAZOLE 30 MG CPDR 1 cap po qd LANSOPRAZOLE 50067513412 No Longer Active Vishal Hui MD Active BACLOFEN 20 MG TABS 1 tab po tid BACLOFEN 37431827026 No Longer Active Vishal Hui MD Active ADVAIR DISKUS 250-50 MCG/DOSE AEPB 1 puff BID ADVAIR DISKUS 250-50 MCG/DOSE AEPB FLUTICASONE-SALMETEROL Inactive ESCITALOPRAM OXALATE 20 MG TABS 1 tab po qd ESCITALOPRAM OXALATE 20 MG TABS 001415 ESCITALOPRAM OXALATE Inactive ATENOLOL 25 MG TABS 1 tab po qd ATENOLOL 25 MG TABS 629168 ATENOLOL Inactive BENZTROPINE MESYLATE 1 MG TABS 1 tab po qd BENZTROPINE MESYLATE 1 MG TABS 864600 BENZTROPINE MESYLATE Inactive BUSPIRONE HCL 15 MG TABS 1 tab po TID BUSPIRONE HCL 15 MG TABS 678382 BUSPIRONE HCL Inactive LEVOFLOXACIN 500 MG TABS 1 tab po qd LEVOFLOXACIN 500 MG TABS 357028 LEVOFLOXACIN Inactive PREDNISONE 20 MG TABS 1 tab po qd PREDNISONE 20 MG TABS 050668 PREDNISONE Inactive MIRALAX POWD 1 capfull once daily MIRALAX POWD 695645 POLYETHYLENE GLYCOL 3350 Inactive VERAPAMIL HCL ER 180 MG CR-TABS 1 tab po bid VERAPAMIL HCL ER 180 MG CR-TABS VERAPAMIL HCL Inactive LORATADINE 10 MG TABS 1 tab po qd LORATADINE 10 MG TABS 613063 LORATADINE Inactive LYRICA 50 MG CAPS 1 tab po TID LYRICA 50 MG CAPS PREGABALIN Inactive ZALEPLON 10 MG CAPS 1 cap po every other night ZALEPLON 10 MG CAPS 201525 ZALEPLON Inactive SAPHRIS 5 MG SUBL 1 tab po qd SAPHRIS 5 MG SUBL ASENAPINE MALEATE Inactive TRAZODONE HCL 50 MG TABS 1/2 tab po qd prn for anxiety TRAZODONE HCL 50 MG TABS 118078 TRAZODONE HCL Inactive LATUDA 20 MG TABS Take one by mouth daily LATUDA 20 MG TABS LURASIDONE HCL Inactive LISINOPRIL 20 MG TABS 1 tab po qd LISINOPRIL 20 MG TABS 680974 LISINOPRIL Inactive SAPHRIS 10 MG SUBL 1 [...] twice daily BACTRIM DS 800-160 MG TAB 714082 TRIMETHOPRIM-SULFAMETHOXAZOLE Inactive MULTIVITAMINS CAPS Take one by mouth daily MULTIVITAMINS CAPS MULTIPLE VITAMIN Inactive MELATONIN 3 MG CAPS 2 po q hs MELATONIN 3 MG CAPS 901017 MELATONIN Inactive KEFLEX 500 MG ORAL CAPS 1 cap QID by mouth KEFLEX 500 MG ORAL CAPS 739558 CEPHALEXIN Inactive CLINDAMYCIN HCL 150 MG CAPS 1 four times a day CLINDAMYCIN HCL 150 MG CAPS 071682 CLINDAMYCIN HCL Inactive DIFLUCAN 150 MG TAB 1 tablet by mouth daily DIFLUCAN 150 MG TAB 544874 FLUCONAZOLE Inactive PROZAC 20 MG CAP Take one by mouth daily PROZAC 20 MG CAP 048354 FLUOXETINE HCL Inactive IBUPROFEN 600 MG TAB 1 po TID PRN IBUPROFEN 600 MG TAB 077106 IBUPROFEN Inactive VYVANSE 40 MG CAPS 1 daily, VYVANSE 40 MG CAPS LISDEXAMFETAMINE DIMESYLATE Inactive TRAZODONE HCL 100 MG TAB take 1 at bedtime TRAZODONE HCL 100 MG TAB 644638 TRAZODONE HCL Inactive AMITRIPTYLINE HCL 100 MG TAB one at hs AMITRIPTYLINE HCL 100 MG TAB 187768 AMITRIPTYLINE HCL Inactive AMLODIPINE BESYLATE 5 MG TABS 1 tablet by mouth daily AMLODIPINE BESYLATE 5 MG TABS 198734 AMLODIPINE BESYLATE Inactive LATUDA 80 MG TABS Take one by mouth daily LATUDA 80 MG TABS LURASIDONE HCL Inactive SAPHRIS 5 MG SUBL 1 po bid SAPHRIS 5 MG SUBL ASENAPINE MALEATE Inactive PREDNISONE 20 MG TAB 2 tabs daily for 4 days, 1 tab daily for 4 days, 1/2 tab daily for 4 days PREDNISONE 20 MG TAB 388368 PREDNISONE Inactive AMBIEN 5 MG ORAL TABS 1 tab at bedtime AMBIEN 5 MG ORAL TABS 339058 ZOLPIDEM TARTRATE Inactive PROZAC 20 MG ORAL CAPS 1 tab daily PROZAC 20 MG ORAL CAPS 535895 FLUOXETINE HCL Inactive ABILIFY 15 MG ORAL TABS 1 tab daily ABILIFY 15 MG ORAL TABS 151876 ARIPIPRAZOLE Inactive METOPROLOL TARTRATE 50 MG TAB 1 po bid METOPROLOL TARTRATE 50 MG TAB 386141 METOPROLOL TARTRATE Inactive TRAMADOL HCL 50 MG TABS 1-2 po TID PRN Pain TRAMADOL HCL 50 MG TABS 203017 TRAMADOL HCL Inactive PIROXICAM 20 MG CAPS 1 cap po qd PRN Pain PIROXICAM 20 MG CAPS 990856 PIROXICAM Inactive MINIPRESS 2 MG CAPS 4 cap po at night MINIPRESS 2 MG CAPS 661612 PRAZOSIN HCL Inactive MIRALAX PACK 1 po qd PRN Constipation MIRALAX PACK 782409 POLYETHYLENE GLYCOL 3350 Inactive METOPROLOL TARTRATE 25 MG ORAL TABS 1/2 tablet twice daily for heart rate and blood pressure METOPROLOL TARTRATE 25 MG ORAL TABS 306265 METOPROLOL TARTRATE Inactive VALIUM 5 MG TAB Take 1-2 tablets daily VALIUM 5 MG TAB 448287 DIAZEPAM Inactive FLAGYL 500 MG TAB 1 tablet by mouth bid FLAGYL 500 MG TAB 783107 METRONIDAZOLE Inactive DICLOFENAC POTASSIUM TABS Take 1 tablet twice a day (pt. is not sure of the dose.) DICLOFENAC POTASSIUM TABS DICLOFENAC POTASSIUM TABS Inactive ZITHROMAX Z-EARNEST 250 MG TABS 2 today and then 1 daily for 4 days ZITHROMAX Z-EARNEST 250 MG TABS 9132437 AZITHROMYCIN Inactive PREDNISONE 20 MG TABS 2 daily for 5 days then 1 daily for 5 days PREDNISONE 20 MG TABS 455726 PREDNISONE Inactive PROAIR HFA 108 (90 BASE) MCG/ACT AERS 2 puffs four times a day as needed 2015 PROAIR HFA 108 (90 BASE) MCG/ACT AERS ALBUTEROL SULFATE Inactive HYDROCODONE-ACETAMINOPHEN 5-325 MG TABS 1 to 2 four times a day as needed for pain use until can be seen by specialist HYDROCODONE- ACETAMINOPHEN 5-325 MG TABS 132235 HYDROCODONE-ACETAMINOPHEN Inactive CEFDINIR 300 MG CAPS by mouth twice a day CEFDINIR 300 MG CAPS 177481 CEFDINIR Inactive PREDNISONE 20 MG TAB 2 tabs daily for 3 days, 1 tab daily for 3 days, 1/2 tab daily for 2 days PREDNISONE 20 MG TAB 971610 PREDNISONE Inactive BACTRIM DS 800-160 MG TABS 1 po BID x 7 days BACTRIM DS 800-160 MG TABS 610015 SULFAMETHOXAZOLE-TRIMETHOPRIM Inactive DIFLUCAN 150 MG TABS 1 pill every other day x 2 doses DIFLUCAN 150 MG TABS 928422 FLUCONAZOLE Inactive BACTRIM DS 800-160 MG TABS 1 pill by mouth twice daily BACTRIM DS 800-160 MG TABS 146422 SULFAMETHOXAZOLE-TRIMETHOPRIM Inactive KEFLEX 500 MG CAP 1 po TID x 10 days KEFLEX 500 MG CAP 749669 CEPHALEXIN Inactive Advance Directives Directive Description Start [...] % 11.6-14.8 platelet count 394 10^3/MM^3 10*3/mm3 319-033 3871/01/11 leukocyte count, blood 13.8 10^3/MM^3 10*3/mm3 4.6-10.2 [...] Panel - Chemistry sodium, serum 139 mmol/L 426-779 7583/12/03 carbon dioxide, venous blood 28.5 mmol/L 21.0-32.0 [...] 5.5 % 4.3-6.0 cholesterol, serum 159 mg/dL 368-027 5588/12/03 triglyceride, serum, fasting 118 mg/dL 30-200 HDL [...] Panel - Chemistry sodium, serum 139 mmol/L 083-556 7304/01/11 carbon dioxide, venous blood 26.6 mmol/L 21.0-32.0 potassium, serum 4.1 mmol/L 3.5-5.2 chloride, serum 100 mmol/L 98-107 blood glucose 86 mg/dL 65-110 urea nitrogen, blood 16 mg/dL 7-18 creatinine, serum 1.00 mg/dL 0.55-1.30 alanine aminotransferase (SGPT), serum 48 U/L aspartate aminotransferase (SGOT), serum 17 U/L 15-37 calcium, serum 9.1 mg/dL 8.5-10.1 bilirubin, serum, total 0.40 mg/dL 0.00-1.00 sodium, serum 139 mmol/L 115-375 6721/12/22 carbon dioxide, venous blood 26.8 mmol/L 21.0-32.0 potassium, serum 4.2 mmol/L 3.5-5.2 chloride, serum 103 mmol/L 98-107 blood glucose 115 mg/dL 65-110 urea nitrogen, blood 20 mg/dL 7-18 creatinine, serum 0.90 mg/dL 0.55-1.30 alanine aminotransferase (SGPT), serum 38 U/L aspartate aminotransferase (SGOT), serum 19 U/L - calcium, serum 8.6 mg/dL 8.5-10.1 bilirubin, serum, total 0.30 mg/dL 0.00-1.00 sodium, serum 142 mmol/L 222-695 1188/06/08 carbon dioxide, venous blood 27.6 mmol/L 21.0-32.0 potassium, serum 4.0 mmol/L 3.5-5.2 chloride, serum 105 mmol/L 98-107 blood glucose 95 mg/dL 65-110 urea nitrogen, blood 8 mg/dL 7-18 creatinine, serum 0.75 mg/dL 0.55-1.30 alanine aminotransferase (SGPT), serum 49 U/L aspartate aminotransferase (SGOT), serum 28 U/L 15-37 calcium, serum 9.4 mg/dL 8.5-10.1 bilirubin, serum, total 0.30 mg/dL 0.00-1.00 sodium, serum 140 mmol/L 785-163 6237/08/08 carbon dioxide, venous blood 33.7 mmol/L 21.0-32.0 [...] Rate - Chemistry sodium, serum 139 mmol/L 110-734 8405/12/11 carbon dioxide, venous blood 25.4 mmol/L 21.0-32.0 [...] mg/dL Encounters Code Encounter Date Provider Facility CPT-68668 Level 3 Est. Patient 11:36:17 CDT Ahmet Carbajal MD [facility] CPT-05333 Level 3 Est. Patient 13:29:16 CDT Vishal Hui MD [facility] CPT-40745 Level 3 Est. Patient 14:27:52 CDT Neeraj Collins MD [facility] CPT-27723 Level 3 Est. Patient 08:56:03 CDT Luigi Martínez [facility] CPT-68385 Level 4 Est. Patient 12:11:48 CDT Fabiola Johnson [facility] CPT-03863 Level 3 New Patient 16:53:37 CDT Albert Caldera MD [facility] CPT-58028 Level 3 Est. Patient 11:25:49 CDT Renzo Thornton DO [facility] CPT-19742 Level 3 Est. Patient 15:22:01 CDT Ahmet Carbajal MD [facility] CPT-35363 Level 4 Est. Patient 09:00:51 RECLAMATION WORKER Vishal Hui MD [facility] CPT-78125 Level 3 Est. Patient 11:37:33 RECLAMATION WORKER Vishal Hui MD [facility] CPT-67385 Level 3 Est. Patient 08:41:09 RECLAMATION WORKER Vishal Hui MD [facility] CPT-04434 Level 4 Est. Patient 10:19:35 RECLAMATION WORKER Vishal Hui MD [facility] CPT-82840 Level 3 Est. Patient 13:35:45 CDT Vishal Hui MD [facility] CPT-58166 Level 4 Est. Patient 10:08:37 CDT Vishal Hui MD [facility] CPT-35047 Level 3 Est. Patient 11:22:10 CDT Vishal Hui MD [facility] CPT-77753 Level 3 Est. Patient 11:03:32 CDT Sahara Rodriguez MD, PhD [facility] CPT-55599 Level 3 Est. Patient 09:41:35 CDT Vishal Hui MD [facility] CPT-26964 Level 3 Est. Patient 12:00:41 CDT Neeraj Collins MD [facility] CPT-10515 Level 3 Est. Patient 09:16:24 CDT Vishal Hui MD [facility] CPT-71092 Level 4 Est. Patient 13:59:09 CDT Neeraj Collins MD [facility] CPT-80470 Level 3 Est. Patient 15:19:[address] [facility] CPT-25870 Level 3 Est. Patient 18:10:26 CDT Sahara Rodriguez MD PhD [facility] CPT-23728 Level 3 Est. Patient 14:49:50 CDT Vishal Hui MD [facility] CPT-86626 Level 4 Est. Patient 18:41:46 CDT Neeraj Collins MD [facility] CPT-72064 Level 4 Est. Patient 09:18:38 RECLAMATION WORKER Vishal Hui MD [facility] CPT-63405 Level 3 Est. Patient 14:43:55 RECLAMATION WORKER Vishal Hui MD [facility] CPT-12651 Level 3 Est. Patient 15:26:33 RECLAMATION WORKER Sahara Rodriguez MD PhD [facility] CPT-83468 Level 3 Est. Patient 10:32:14 RECLAMATION WORKER Vishal Hui MD [facility] CPT-76898 Level 3 Est. Patient 15:12:52 RECLAMATION WORKER Vishal Hui MD [facility] CPT-00061 Level 4 Est. Patient 09:19:27 CDT Vishal Hui MD [facility] CPT-98711 Level 3 Est. Patient 15:53:[address] [facility] CPT-63387 Level 3 Est. Patient 15:50:[address] [facility] CPT-21673 Level 3 Est. Patient 16:55:24 CDT Vishal Hui MD [facility] Procedures Code Procedure Name Date Entry Date Standard Description CPT-14943 Abx/Therapy Injection 13:29:56 CDT CPT-59131 Abx/Therapy Injection 08:36:16 CDT CPT-64402 Wet Mount - LAB USE ONLY 17:44:58 CDT CPT-61665 UA w micro - LAB USE ONLY 17:44:58 CDT CPT-09489 CMP - LAB USE ONLY 17:44:58 CDT CPT-04911 Venipuncture Draw Fee 17:44:58 CDT CPT-07052 Cervical Min 4V - XRAY USE ONLY 09:01:40 CDT CPT-96747 Chest 2V Frontal and Lat - XRAY USE ONLY 11:06:31 CDT CPT-12731 EKG Trac and Interp - XRAY USE ONLY 11:31:43 CDT 08/26 CPT-J3420 Vitamin B12 1000mcg (Cyanocobalamin) 08:10:26 RECLAMATION WORKER 04/12 CPT-24306 Abx/Therapy Injection 08:10:26 RECLAMATION WORKER CPT-G0438 Initial Annual Wellness Exam 19:01:01 RECLAMATION WORKER CPT-J3420 Vitamin B12 1000mcg (Cyanocobalamin) 16:57:46 CDT 08/14 CPT-10203 Recombivax HB Injection Suspension 5 MCG/0.5ML 08:37:50 RECLAMATION WORKER CPT-48040 Immunization Single Admin 08:37:50 RECLAMATION WORKER CPT-J3420 Vitamin B12 1000mcg (Cyanocobalamin) 08:32:16 RECLAMATION WORKER 03/11 CPT-34093 Abx/Therapy Injection 08:32:16 RECLAMATION WORKER CPT-79427 Chest 2V Frontal and Lat 11:46:38 RECLAMATION WORKER CPT-43776 Venipuncture Draw Fee 09:12:45 RECLAMATION WORKER CPT-J3420 Vitamin B12 1000mcg (Cyanocobalamin) 08:50:15 RECLAMATION WORKER 02/08 CPT-88825 Abx/Therapy Injection 08:50:15 RECLAMATION WORKER CPT-Cryo Cryotherapy 10:19:35 RECLAMATION WORKER CPT-000 Give Appropriate Flu Vaccine 09:22:16 CDT CPT-J3420 Vitamin B12 1000mcg (Cyanocobalamin) 19:08:57 CDT 01/11 CPT-39187 Abx/Therapy Injection 19:08:57 CDT CPT-J3420 Vitamin B12 1000mcg (Cyanocobalamin) 08:19:08 CDT 12/11 CPT-18482 Abx/Therapy Injection 08:19:08 CDT CPT-J3420 Vitamin B12 1000mcg (Cyanocobalamin) 14:48:00 CDT 11/09 CPT-20328 Abx/Therapy Injection 14:47:59 CDT CPT-J3420 Vitamin B12 1000mcg (Cyanocobalamin) 08:34:04 CDT 10/09 CPT-32724 Abx/Therapy Injection 08:34:04 CDT CPT-J3420 Vitamin B12 1000mcg (Cyanocobalamin) 09:18:52 CDT 09/11 CPT-57361 Abx/Therapy Injection 09:18:52 CDT CPT-J3420 Vitamin B12 1000mcg (Cyanocobalamin) 08:35:44 CDT 09/04 CPT-02856 Abx/Therapy Injection 08:35:44 CDT CPT-44890 Immunization Single Admin 11:07:16 CDT CPT-00731 Hepatitis B adult IM 11:07:16 CDT CPT-J3420 Vitamin B12 1000mcg (Cyanocobalamin) 11:00:49 CDT 08/28 CPT-J1040 Depo Medrol 80 mg (Methyl Prednisolone Acetate) 11:00: 49 CDT CPT-70139 Abx/Therapy Injection 11:00:49 CDT CPT-J1040 Depo Medrol 80 mg (Methyl Prednisolone Acetate) 09:16: 23 CDT CPT-J3420 Vitamin B12 1000mcg (Cyanocobalamin) 08:27:05 CDT 08/20 CPT-73657 Abx/Therapy Injection 08:27:05 CDT CPT-19360 Recombivax HB Injection Suspension 5 MCG/0.5ML 10:00:41 CDT CPT-79209 Administration single or combination vaccine inc oral 10 :00:41 CDT CPT-58362 Sono transvag pelvis non OB uterus ovaries cervix 16:36: 57 CDT CPT-79817 LS spine comp w obliq 09:50:55 RECLAMATION WORKER CPT-74131 Abd compl w upright 09:50:55 RECLAMATION WORKER CPT-J1100 Decadron 4mg (Dexamethasone) 15:51:24 RECLAMATION WORKER CPT-J1030 Depo Medrol 40 mg (Methyl Prednisolone Acetate) 15:51: 24 RECLAMATION WORKER CPT-95487 Abx/Therapy Injection 15:51:24 RECLAMATION WORKER CPT-J1100 Decadron 4mg (Dexamethasone) 15:26:33 RECLAMATION WORKER CPT-J1030 Depo Medrol 40 mg (Methyl Prednisolone Acetate) 15:26: 33 RECLAMATION WORKER CPT-18681 Sono retroperitoneal complete kidneys and bladder 17:15: 30 CDT CPT-20784 Abd compl w upright 16:09:25 CDT CPT-J1100 Decadron 8mg (Dexamethasone) 17:07:57 CDT CPT-80470 Abx/Therapy Injection 17:07:57 CDT CPT-J1100 Decadron 8mg (Dexamethasone) 16:55:24 CDT CPT-08525 Chest 2V Frontal and Lat 16:32:44 CDT
--- OUTSIDE RECORDS SUMMARY | 2016-11-05 01:09 | XMS REPORT ---
Author Author [facility] Organization [facility] Address [address] [place], [place] [id number] Phone [phone] Care Team Providers Care Battery Loader Name Role Phone OLGA PATEL APRN PP [phone] Summary purpose TRANSITION OF CARE AUTO GENERATION [...] Code Type Description Date Performed Performing Physician J1885 CPT-4 KETOROLAC TROMETHAMINE INJ 05-11-2015 SHANTEL GARZON J2550 CPT-4 PROMETHAZINE HCL INJECTION 05-11-2015 SHANTEL GARZON 55341 CPT-4 EMERGENCY DEPT VISIT 05-11-2015 SHANTEL GARZON 07774 CPT-4 EMERGENCY DEPT VISIT 05-11-2015 SHANTEL GARZON 08396 CPT-4 THER/PROPH/DIAG INJ SC/IM 05-11-2015 SHANTEL GARZON Functional status Functional Status Finding Observation Time Abdomen Appearance round [id number] Abdomen non-tender [id number] Vick no :45 Urination normal :45 Quality [...]
--- OUTSIDE RECORDS SUMMARY | 2016-11-05 01:09 | XMS REPORT | Clinical Summary ---
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 Juliet Kimbrough YARN MERCERIZER OPERATOR Dependence on other enabling machines and [...] Shortness of breath 786.05 Active Fabiola Johnson YARN MERCERIZER OPERATOR Shortness of breath Nocturnal hypoxia 799.02 Active Fabiola Johnson YARN MERCERIZER OPERATOR Hypoxemia Neck pain 723.1 Active Luigi Martínez YARN MERCERIZER OPERATOR Cervicalgia Vaginal discharge 623.5 Active Neeraj [...] disorder-smoking cessation discussed ICD-305.1 Jim Hui MD Fatigue ICD-780.79 Jim Hui MD 2014 Vaginitis, candidal ICD-112.1 Jim Hui MD Other abnormal blood chemistry ICD-790.6 Jim Hui MD Vaginitis ICD-616.10 Jim Hui MD Boils, recurrent ICD-680.9 Jim Hui MD Postconcussion syndrome ICD-310.2 Jim Hui MD Nevus, 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 Jim Hui MD Encounter for removal of sutures ICD-V58.32 Jim Hui MD 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 Jim Hui MD Personality change ICD-301.9 Jim Hui MD Leukocytosis ICD-288.60 Jim Hui MD UTI ICD-599.0 Jim Hui MD Hot flashes ICD-627.2 Jim Hui MD Elevated blood glucose ICD-790.29 Jim Hui MD Lipoma ICD-214.9 Inactive Albert [...] TABS take as directed 2015 VARENICLINE TARTRATE 81070136313 Active Ahmet Carbajal MD Active CHANTIX 1 MG TABS 1 twice a day to help quit smoking VARENICLINE TARTRATE 06281790015 Active Ahmet Carbajal MD Active HYDROCODONE-ACETAMINOPHEN 5-325 MG TABS 1 to 2 four times a day as needed for pain use until can be seen by specialist HYDROCODONE- ACETAMINOPHEN 55786722756 No Longer Active Vishal Hui MD Active PROAIR HFA 108 (90 BASE) MCG/ACT AERS 2 puffs four times a day as needed 2015 ALBUTEROL SULFATE 74247830189 No Longer Active Vishal Hui MD Active PREDNISONE 20 MG TABS 2 daily for 5 days then 1 daily for 5 days PREDNISONE 13539459100 No Longer Active Vishal Hui MD Active ZITHROMAX Z-EARNEST 250 MG TABS 2 today and then 1 daily for 4 days AZITHROMYCIN 25531502477 No Longer Active Vishal Hui MD Active DICLOFENAC SODIUM 50 MG TBEC 1 tablet by mouth four times daily PRN Pain 2015 DICLOFENAC SODIUM 52428143497 Active Vishal Hui MD Active DICLOFENAC POTASSIUM TABS Take 1 tablet twice a day (pt. is not sure of the dose.) DICLOFENAC POTASSIUM TABS 11749415458 No Longer Active Vishal Hui MD Active VERAPAMIL HCL ER 120 MG ORAL CR-TABS Take 1 tablet by mouth twice a day. VERAPAMIL HCL 51926101082 Active Vishal Hui MD Active FLAGYL 500 MG TAB 1 tablet by mouth bid METRONIDAZOLE 19341552533 No Longer Active Vishal Hui MD Active ABILIFY MAINTENA 400 MG IM SUSR 400mg injection every 28 days ARIPIPRAZOLE 12768609886 Active Silvia Ervinum APPEALS BOARD REFEREE Active FLUTICASONE PROPIONATE 50 MCG/ACT SUSP 2 sprays each nostril daily before bed. FLUTICASONE PROPIONATE 71525130053 Active Fabiola Johnson APRN Active ADZENYS XR-ODT 6.3 MG ORAL TBED 1 tab po daily for ADHD AMPHETAMINE 72207710017 Active Fabiola Johnson APRN Active BENADRYL 25 MG CAP 4 po at bedtime for insomnia DIPHENHYDRAMINE HCL 36592803244 Active Fabiola Johnson APRN Active KLONOPIN 1 MG ORAL TABS 1 tab po TID CLONAZEPAM 71921184677 Active Fabiola Johnson APRN Active VALIUM 5 MG TAB Take 1-2 tablets daily DIAZEPAM 49075611390 No Longer Active Fabiola Johnson APRN Active METOPROLOL TARTRATE 25 MG ORAL TABS 1/2 tablet twice daily for heart rate and blood pressure METOPROLOL TARTRATE 57930235499 No Longer Active Fabiola Johnson APRN Active MIRALAX ORAL POWD 17GMS DAILY IN WATER POLYETHYLENE GLYCOL 3350 33468330735 Active Vishal Hui MD Active VIIBRYD 10 MG ORAL TABS Take 1 tablet once a day VILAZODONE HCL 41628285371 Active Ahmet Carbajal MD Active MIRALAX PACK 1 po qd PRN Constipation POLYETHYLENE GLYCOL 3350 06289968695 No Longer Active Ahmet Carbaajl MD Active MINIPRESS 2 MG CAPS 4 cap po at night PRAZOSIN HCL 69953343061 No Longer Active Ahmet Carbajal MD Active PIROXICAM 20 MG CAPS 1 cap po qd PRN Pain PIROXICAM 57423720637 No Longer Active Ahmet Carbajal MD Active TRAMADOL HCL 50 MG TABS 1-2 po TID PRN Pain TRAMADOL HCL 54654786644 No Longer Active Ahmet Carbajal MD Active METOPROLOL TARTRATE 50 MG TAB 1 po bid METOPROLOL TARTRATE 81648205586 No Longer Active Ahmet Carbajal MD Active ABILIFY 15 MG ORAL TABS 1 tab daily ARIPIPRAZOLE 01343349082 No Longer Active Ahmet Carbajal MD Active PROZAC 20 MG ORAL CAPS 1 tab daily FLUOXETINE HCL 84994243632 No Longer Active Ahmet Carbajal MD Active AMBIEN 5 MG ORAL TABS 1 tab at bedtime ZOLPIDEM TARTRATE 92765609306 No Longer Active Ahmet Carbajal MD Active PREDNISONE 20 MG TAB 2 tabs daily for 4 days, 1 tab daily for 4 days, 1/2 tab daily for 4 days PREDNISONE 63187198865 No Longer Active Ahmet Carbajal MD Active KEFLEX 500 MG CAP 1 po TID x 10 days CEPHALEXIN 54107370055 No Longer Active Vishal Hui MD Active IMITREX 50 MG ORAL TABS 1/2 tab every 6 hours prn SUMATRIPTAN SUCCINATE 72101413816 Active Jillina Fralebron NORIEGA Active TOPAMAX 50 MG ORAL TABS 1 tab twice daily TOPIRAMATE 65699994334 Active Vishal Hui MD Active SAPHRIS 5 MG SUBL 1 po bid ASENAPINE MALEATE 40044634722 No Longer Active Luigi Martínez APRN Active LATUDA 80 MG TABS Take one by mouth daily LURASIDONE HCL 75122619996 No Longer Active Luigi Martínez APRN Active AMLODIPINE BESYLATE 5 MG TABS 1 tablet by mouth daily AMLODIPINE BESYLATE 26662838916 No Longer Active Luigi Martínez APRN Active AMITRIPTYLINE HCL 100 MG TAB one at hs AMITRIPTYLINE HCL 18645416147 No Longer Active Vishal Hui MD Active TRAZODONE HCL 100 MG TAB take 1 at bedtime TRAZODONE HCL 56407914311 No Longer Active Vishal Hui MD Active VYVANSE 40 MG CAPS 1 daily, LISDEXAMFETAMINE DIMESYLATE 45299195976 No Longer Active Vishal Hui MD Active IBUPROFEN 600 MG TAB 1 po TID PRN IBUPROFEN 44818912874 No Longer Active Vishal Hui MD Active PROZAC 20 MG CAP Take one by mouth daily FLUOXETINE HCL 84532310096 No Longer Active Vishal Hui MD Active ZOFRAN 4 MG TABS 1 po q6hr PRN Nausea ONDANSETRON HCL Active Vishal Hui MD Active BACTRIM DS 800-160 MG TABS 1 pill by mouth twice daily SULFAMETHOXAZOLE-TRIMETHOPRIM 70731098854 No Longer Active Sahara Rodriguez MD PhD Active DIFLUCAN 150 MG TAB 1 tablet by mouth daily FLUCONAZOLE 60695753637 No Longer Active Vishal Hui MD Active TIZANIDINE HCL 4 MG TABS 1 po q6hr PRN Muscle Spasm/Back Pain TIZANIDINE HCL 68935729517 Active Vishal Hui MD Active CLINDAMYCIN HCL 150 MG CAPS 1 four times a day CLINDAMYCIN HCL 06824776233 No Longer Active Neeraj Collins MD Active KEFLEX 500 MG ORAL CAPS 1 cap QID by mouth CEPHALEXIN 25248971001 No Longer Active Neeraj Collins MD Active DIFLUCAN 150 MG TABS 1 pill every other day x 2 doses FLUCONAZOLE 04748010675 No Longer Active Shaara Rodriguze MD PhD Active MELATONIN 3 MG CAPS 2 po q hs MELATONIN 06956819951 No Longer Active Sahara Rodriguez MD PhD Active MULTIVITAMINS CAPS Take one by mouth daily MULTIPLE VITAMIN 70681177376 No Longer Active Sahara Rodriguez MD PhD Active BACTRIM DS 800-160 MG TAB 1 tab by mouth twice daily TRIMETHOPRIM-SULFAMETHOXAZOLE 80290587110 No Longer Active Sahara Rodriguez MD PhD Active [employer] PROBIOTIC ORAL CHEW 2 daily po PROBIOTIC PRODUCT 15396389477 No Longer Active Sahara Rodriguez MD PhD Active BACTRIM DS 800-160 MG TABS 1 po BID x 7 days SULFAMETHOXAZOLE-TRIMETHOPRIM 40567515635 No Longer Active Vishal Hui MD Active CHANTIX STARTING MONTH EARNEST 0.5 MG X 11 & 1 MG X 42 TABS 0.5mg daily for 3 days , then 0.5mg BID for 4 days, then 1mg BID VARENICLINE TARTRATE 14319924049 No Longer Active TAMARA Gray Active VERAPAMIL HCL CR 120 MG TAB CR 1 po bid VERAPAMIL HCL 41993333207 No Longer Active Vishal Hui MD Active METOPROLOL SUCCINATE 50 MG TB24 1 tablet by mouth daily METOPROLOL SUCCINATE 71141858476 No Longer Active Vishal Hui MD Active SAPHRIS 10 MG SUBL 1 tab po bid ASENAPINE MALEATE 83265377608 No Longer Active Vishal Hui MD Active LISINOPRIL 20 MG TABS 1 tab po qd LISINOPRIL 70327409073 No Longer Active Vishal Hui MD Active LATUDA 20 MG TABS Take one by mouth daily LURASIDONE HCL 69983316497 No Longer Active Vishal Hui MD Active TRAZODONE HCL 50 MG TABS 1/2 tab po qd prn for anxiety TRAZODONE HCL 19432581091 No Longer Active Vishal Hui MD Active OMEPRAZOLE 20 MG TBEC 1 po q a.m. 30min prior to first food intake OMEPRAZOLE 00570052372 Active Vishal Hui MD Active RANITIDINE HCL 150 MG CAPS 1 twice a day RANITIDINE HCL 44921347112 Active Luigi Martínez APRN Active LINZESS 290 MCG CAPS Take one by mouth daily LINACLOTIDE 16449673986 No Longer Active Vishal Hui MD Active SAPHRIS 5 MG SUBL 1 tab po qd ASENAPINE MALEATE 68245862364 No Longer Active Vishal Hui MD Active ZALEPLON 10 MG CAPS 1 cap po every other night ZALEPLON 62626592923 No Longer Active Vishal Hui MD Active LYRICA 50 MG CAPS 1 tab po TID PREGABALIN 86473656022 No Longer Active Vishal Hui MD Active LORATADINE 10 MG TABS 1 tab po qd LORATADINE 44093203992 No Longer Active Vishal Hui MD Active VERAPAMIL HCL ER 180 MG CR-TABS 1 tab po bid VERAPAMIL HCL 83415595512 No Longer Active Vishal Hui MD Active MIRALAX POWD 1 capfull once daily POLYETHYLENE GLYCOL 3350 90257364613 No Longer Active Vishal Hui MD Active PREDNISONE 20 MG TABS 1 tab po qd PREDNISONE 18596737174 No Longer Active Renzo Thornton DO Active LEVOFLOXACIN 500 MG TABS 1 tab po qd LEVOFLOXACIN 22058769191 No Longer Active Renzo Thornton DO Active BUSPIRONE HCL 15 MG TABS 1 tab po TID BUSPIRONE HCL 99709912669 No Longer Active Renzo Thornton DO Active BENZTROPINE MESYLATE 1 MG TABS 1 tab po qd BENZTROPINE MESYLATE 82917262352 No Longer Active Renzo Thornton DO Active ATENOLOL 25 MG TABS 1 tab po qd ATENOLOL 12216913516 No Longer Active Renzo Thornton DO Active ESCITALOPRAM OXALATE 20 MG TABS 1 tab po qd ESCITALOPRAM OXALATE 21460324416 No Longer Active Renzo Thornton DO Active ADVAIR DISKUS 250-50 MCG/DOSE AEPB 1 puff BID FLUTICASONE-SALMETEROL 89392077879 No Longer Active Renzo Thornton DO Active PREDNISONE 20 MG TAB 2 tabs daily for 3 days, 1 tab daily for 3 days, 1/2 tab daily for 2 days PREDNISONE 65162340222 No Longer Active Vishal Hui MD Active CEFDINIR 300 MG CAPS by mouth twice a day CEFDINIR 90922253181 No Longer Active Vishal Hui MD Active LANSOPRAZOLE 30 MG CPDR 1 cap po qd LANSOPRAZOLE 09738468104 No Longer Active Vishal Hui MD Active BACLOFEN 20 MG TABS 1 tab po tid BACLOFEN 71155890516 No Longer Active Vishal Hui MD Active ADVAIR DISKUS 250-50 MCG/DOSE AEPB 1 puff BID ADVAIR DISKUS 250-50 MCG/DOSE AEPB FLUTICASONE-SALMETEROL Inactive ESCITALOPRAM OXALATE 20 MG TABS 1 tab po qd ESCITALOPRAM OXALATE 20 MG TABS 836358 ESCITALOPRAM OXALATE Inactive ATENOLOL 25 MG TABS 1 tab po qd ATENOLOL 25 MG TABS 426528 ATENOLOL Inactive BENZTROPINE MESYLATE 1 MG TABS 1 tab po qd BENZTROPINE MESYLATE 1 MG TABS 511220 BENZTROPINE MESYLATE Inactive BUSPIRONE HCL 15 MG TABS 1 tab po TID BUSPIRONE HCL 15 MG TABS 541780 BUSPIRONE HCL Inactive LEVOFLOXACIN 500 MG TABS 1 tab po qd LEVOFLOXACIN 500 MG TABS 512059 LEVOFLOXACIN Inactive PREDNISONE 20 MG TABS 1 tab po qd PREDNISONE 20 MG TABS 321275 PREDNISONE Inactive MIRALAX POWD 1 capfull once daily MIRALAX POWD 992204 POLYETHYLENE GLYCOL 3350 Inactive VERAPAMIL HCL ER 180 MG CR-TABS 1 tab po bid VERAPAMIL HCL ER 180 MG CR-TABS VERAPAMIL HCL Inactive LORATADINE 10 MG TABS 1 tab po qd LORATADINE 10 MG TABS 475086 LORATADINE Inactive LYRICA 50 MG CAPS 1 tab po TID LYRICA 50 MG CAPS PREGABALIN Inactive ZALEPLON 10 MG CAPS 1 cap po every other night ZALEPLON 10 MG CAPS 549577 ZALEPLON Inactive SAPHRIS 5 MG SUBL 1 tab po qd SAPHRIS 5 MG SUBL ASENAPINE MALEATE Inactive TRAZODONE HCL 50 MG TABS 1/2 tab po qd prn for anxiety TRAZODONE HCL 50 MG TABS 870057 TRAZODONE HCL Inactive LATUDA 20 MG TABS Take one by mouth daily LATUDA 20 MG TABS LURASIDONE HCL Inactive LISINOPRIL 20 MG TABS 1 tab po qd LISINOPRIL 20 MG TABS 385603 LISINOPRIL Inactive SAPHRIS 10 MG SUBL 1 [...] twice daily BACTRIM DS 800-160 MG TAB 923722 TRIMETHOPRIM-SULFAMETHOXAZOLE Inactive MULTIVITAMINS CAPS Take one by mouth daily MULTIVITAMINS CAPS MULTIPLE VITAMIN Inactive MELATONIN 3 MG CAPS 2 po q hs MELATONIN 3 MG CAPS 627505 MELATONIN Inactive KEFLEX 500 MG ORAL CAPS 1 cap QID by mouth KEFLEX 500 MG ORAL CAPS 343343 CEPHALEXIN Inactive CLINDAMYCIN HCL 150 MG CAPS 1 four times a day CLINDAMYCIN HCL 150 MG CAPS 684508 CLINDAMYCIN HCL Inactive DIFLUCAN 150 MG TAB 1 tablet by mouth daily DIFLUCAN 150 MG TAB 857292 FLUCONAZOLE Inactive PROZAC 20 MG CAP Take one by mouth daily PROZAC 20 MG CAP 563335 FLUOXETINE HCL Inactive IBUPROFEN 600 MG TAB 1 po TID PRN IBUPROFEN 600 MG TAB 140685 IBUPROFEN Inactive VYVANSE 40 MG CAPS 1 daily, VYVANSE 40 MG CAPS LISDEXAMFETAMINE DIMESYLATE Inactive TRAZODONE HCL 100 MG TAB take 1 at bedtime TRAZODONE HCL 100 MG TAB 227389 TRAZODONE HCL Inactive AMITRIPTYLINE HCL 100 MG TAB one at hs AMITRIPTYLINE HCL 100 MG TAB 802911 AMITRIPTYLINE HCL Inactive AMLODIPINE BESYLATE 5 MG TABS 1 tablet by mouth daily AMLODIPINE BESYLATE 5 MG TABS 199396 AMLODIPINE BESYLATE Inactive LATUDA 80 MG TABS Take one by mouth daily LATUDA 80 MG TABS LURASIDONE HCL Inactive SAPHRIS 5 MG SUBL 1 po bid SAPHRIS 5 MG SUBL ASENAPINE MALEATE Inactive PREDNISONE 20 MG TAB 2 tabs daily for 4 days, 1 tab daily for 4 days, 1/2 tab daily for 4 days PREDNISONE 20 MG TAB 656455 PREDNISONE Inactive AMBIEN 5 MG ORAL TABS 1 tab at bedtime AMBIEN 5 MG ORAL TABS 929030 ZOLPIDEM TARTRATE Inactive PROZAC 20 MG ORAL CAPS 1 tab daily PROZAC 20 MG ORAL CAPS 822287 FLUOXETINE HCL Inactive ABILIFY 15 MG ORAL TABS 1 tab daily ABILIFY 15 MG ORAL TABS 349917 ARIPIPRAZOLE Inactive METOPROLOL TARTRATE 50 MG TAB 1 po bid METOPROLOL TARTRATE 50 MG TAB 943522 METOPROLOL TARTRATE Inactive TRAMADOL HCL 50 MG TABS 1-2 po TID PRN Pain TRAMADOL HCL 50 MG TABS 458150 TRAMADOL HCL Inactive PIROXICAM 20 MG CAPS 1 cap po qd PRN Pain PIROXICAM 20 MG CAPS 852859 PIROXICAM Inactive MINIPRESS 2 MG CAPS 4 cap po at night MINIPRESS 2 MG CAPS 954904 PRAZOSIN HCL Inactive MIRALAX PACK 1 po qd PRN Constipation MIRALAX PACK 523443 POLYETHYLENE GLYCOL 3350 Inactive METOPROLOL TARTRATE 25 MG ORAL TABS 1/2 tablet twice daily for heart rate and blood pressure METOPROLOL TARTRATE 25 MG ORAL TABS 275094 METOPROLOL TARTRATE Inactive VALIUM 5 MG TAB Take 1-2 tablets daily VALIUM 5 MG TAB 826162 DIAZEPAM Inactive FLAGYL 500 MG TAB 1 tablet by mouth bid FLAGYL 500 MG TAB 768498 METRONIDAZOLE Inactive DICLOFENAC POTASSIUM TABS Take 1 tablet twice a day (pt. is not sure of the dose.) DICLOFENAC POTASSIUM TABS DICLOFENAC POTASSIUM TABS Inactive ZITHROMAX Z-EARNEST 250 MG TABS 2 today and then 1 daily for 4 days ZITHROMAX Z-EARNEST 250 MG TABS 9556207 AZITHROMYCIN Inactive PREDNISONE 20 MG TABS 2 daily for 5 days then 1 daily for 5 days PREDNISONE 20 MG TABS 896712 PREDNISONE Inactive PROAIR HFA 108 (90 BASE) MCG/ACT AERS 2 puffs four times a day as needed 2015 PROAIR HFA 108 (90 BASE) MCG/ACT AERS ALBUTEROL SULFATE Inactive HYDROCODONE-ACETAMINOPHEN 5-325 MG TABS 1 to 2 four times a day as needed for pain use until can be seen by specialist HYDROCODONE- ACETAMINOPHEN 5-325 MG TABS 894106 HYDROCODONE-ACETAMINOPHEN Inactive CEFDINIR 300 MG CAPS by mouth twice a day CEFDINIR 300 MG CAPS 711757 CEFDINIR Inactive PREDNISONE 20 MG TAB 2 tabs daily for 3 days, 1 tab daily for 3 days, 1/2 tab daily for 2 days PREDNISONE 20 MG TAB 536748 PREDNISONE Inactive BACTRIM DS 800-160 MG TABS 1 po BID x 7 days BACTRIM DS 800-160 MG TABS 704675 SULFAMETHOXAZOLE-TRIMETHOPRIM Inactive DIFLUCAN 150 MG TABS 1 pill every other day x 2 doses DIFLUCAN 150 MG TABS 944820 FLUCONAZOLE Inactive BACTRIM DS 800-160 MG TABS 1 pill by mouth twice daily BACTRIM DS 800-160 MG TABS 620208 SULFAMETHOXAZOLE-TRIMETHOPRIM Inactive KEFLEX 500 MG CAP 1 po TID x 10 days KEFLEX 500 MG CAP 395918 CEPHALEXIN Inactive Advance Directives Directive Description Start [...] % 11.6-14.8 platelet count 394 10^3/MM^3 10*3/mm3 606-484 4662/01/11 leukocyte count, blood 13.8 10^3/MM^3 10*3/mm3 4.6-10.2 [...] Panel - Chemistry sodium, serum 139 mmol/L 920-234 6965/12/03 carbon dioxide, venous blood 28.5 mmol/L 21.0-32.0 [...] 5.5 % 4.3-6.0 cholesterol, serum 159 mg/dL 854-639 4582/12/03 triglyceride, serum, fasting 118 mg/dL 30-200 HDL [...] % 11.6-14.8 platelet count 362 10^3/MM^3 10*3/mm3 091-080 2165/12/03 leukocyte count, blood 12.5 10^3/MM^3 10*3/mm3 4.6-10.2 Lab Report: Comp. Metabolic Panel - Chemistry sodium, serum 139 mmol/L 607-522 9476/12/22 carbon dioxide, venous blood 26.8 mmol/L 21.0-32.0 potassium, serum 4.2 mmol/L 3.5-5.2 chloride, serum 103 mmol/L 98-107 blood glucose 115 mg/dL 65-110 urea nitrogen, blood 20 mg/dL 7-18 creatinine, serum 0.90 mg/dL 0.55-1.30 alanine aminotransferase (SGPT), serum 38 U/L -78 aspartate aminotransferase (SGOT), serum 19 U/L 15-37 calcium, serum 8.6 mg/dL 8.5-10.1 bilirubin, serum, total 0.30 mg/dL 0.00-1.00 sodium, serum 139 mmol/L 687-627 9732/01/11 carbon dioxide, venous blood 26.6 mmol/L 21.0-32.0 potassium, serum 4.1 mmol/L 3.5-5.2 chloride, serum 100 mmol/L 98-107 blood glucose 86 mg/dL 65-110 urea nitrogen, blood 16 mg/dL 7-18 creatinine, serum 1.00 mg/dL 0.55-1.30 alanine aminotransferase (SGPT), serum 48 U/L 78 aspartate aminotransferase (SGOT), serum 17 U/L 15-37 calcium, serum 9.1 mg/dL 8.5-10.1 bilirubin, serum, total 0.40 mg/dL 0.00-1.00 sodium, serum 142 mmol/L 384-730 5560/06/08 carbon dioxide, venous blood 27.6 mmol/L 21.0-32.0 potassium, serum 4.0 mmol/L 3.5-5.2 chloride, serum 105 mmol/L 98-107 blood glucose 95 mg/dL 65-110 urea nitrogen, blood 8 mg/dL 7-18 creatinine, serum 0.75 mg/dL 0.55-1.30 alanine aminotransferase (SGPT), serum 49 U/L - aspartate aminotransferase (SGOT), serum 28 U/L 15-37 calcium, serum 9.4 mg/dL 8.5-10.1 bilirubin, serum, total 0.30 mg/dL 0.00-1.00 sodium, serum 140 mmol/L 883-236 4637/08/08 carbon dioxide, venous blood 33.7 mmol/L 21.0-32.0 [...] Rate - Chemistry sodium, serum 139 mmol/L 109-121 9734/12/11 carbon dioxide, venous blood 25.4 mmol/L 21.0-32.0 [...] mg/dL Encounters Code Encounter Date Provider Facility CPT-37475 Level 3 Est. Patient 11:36:17 CDT Ahmet Carbajal MD [facility] CPT-46090 Level 3 Est. Patient 13:29:16 CDT Vishal Hui MD [facility] CPT-37543 Level 3 Est. Patient 14:27:52 CDT Neeraj Collins MD [facility] CPT-61682 Level 3 Est. Patient 08:56:03 CDT Luigi Martínez APRN [facility] CPT-34115 Level 4 Est. Patient 12:11:48 CDT Fabiola Johnson APRN [facility] CPT-00457 Level 3 New Patient 16:53:37 CDT Albert Caldera MD [facility] CPT-89235 Level 3 Est. Patient 11:25:49 CDT Renzo Thornton DO [facility] CPT-78385 Level 3 Est. Patient 15:22:01 CDT Ahmet Carbajal MD [facility] CPT-54816 Level 4 Est. Patient 09:00:51 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 Vishal Hui MD [facility] CPT-08473 Level 3 Est. Patient 11:37:33 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 V[facility]al H[facility] CPT-71681 Level 3 Est. Patient 08:41:09 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 Vishal Hui MD [facility] CPT-49779 Level 4 Est. Patient 10:19:35 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 Vishal Hui MD [facility] CPT-07444 Level 3 Est. Patient 13:35:45 CDT Vishal Hui MD [facility] CPT-03503 Level 4 Est. Patient 10:08:37 CDT Vishal Hui MD [facility] CPT-07825 Level 3 Est. Patient 11:22:10 CDT Vishal Hui MD [facility] CPT-84656 Level 3 Est. Patient 11:03:32 CDT Sahara Rodriguez MD PhD [facility] CPT-53913 Level 3 Est. Patient 09:41:35 CDT Vishal Hui MD [facility] CPT-62614 Level 3 Est. Patient 12:00:41 CDT Neeraj Collins MD [facility] CPT-01184 Level 3 Est. Patient 09:16:24 CDT Vishal Hui MD [facility] CPT-49525 Level 4 Est. Patient 13:59:09 CDT Neeraj Collins MD [facility] CPT-09708 Level 3 Est. Patient 15:19:43 CDT Renzo Thornton [facility] CPT-08398 Level 3 Est. Patient 18:10:26 CDT Sahara Rodriguez MD [facility] CPT-04955 Level 3 Est. Patient 14:49:50 CDT Vishal Hui MD [facility] CPT-10411 Level 4 Est. Patient 18:41:46 CDT Neeraj Collins MD [facility] CPT-09534 Level 4 Est. Patient 09:18:38 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 Vishal Hui MD [facility] CPT-47027 Level 3 Est. Patient 14:43:55 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 Vishal Hui MD [facility] CPT-18936 Level 3 Est. Patient 15:26:33 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 Sahara Rodriguez MD PhD [facility] CPT-52798 Level 3 Est. Patient 10:32:14 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 Vishal Hui MD [facility] CPT-31714 Level 3 Est. Patient 15:12:52 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 Vishal Hui MD [facility] CPT-41662 Level 4 Est. Patient 09:19:27 CDT Vishal Hui MD [facility] CPT-66529 Level 3 Est. Patient 15:53:00 CDT Renzo Thornton [facility] CPT-20848 Level 3 Est. Patient 15:50:30 CDT Renzo Thornton [facility] CPT-30097 Level 3 Est. Patient 16:55:24 CDT Vishal Hui MD [facility] Procedures Code Procedure Name Date Entry Date Standard Description CPT-25136 Abx/Therapy Injection 08:47:09 CDT CPT-08627 Abx/Therapy Injection 13:29:56 CDT CPT-20305 Abx/Therapy Injection 08:36:16 CDT CPT-37260 Wet Mount - LAB USE ONLY 17:44:58 CDT CPT-38471 UA w micro - LAB USE ONLY 17:44:58 CDT CPT-93078 CMP - LAB USE ONLY 17:44:58 CDT CPT-33262 Venipuncture Draw Fee 17:44:58 CDT CPT-65764 Cervical Min 4V - XRAY USE ONLY 09:01:40 CDT CPT-61480 Chest 2V Frontal and Lat - XRAY USE ONLY 11:06:31 CDT CPT-50689 EKG Trac and Interp - XRAY USE ONLY 11:31:43 CDT 08/26 CPT-J3420 Vitamin B12 1000mcg (Cyanocobalamin) 08:10:26 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 04/12 CPT-95127 Abx/Therapy Injection 08:10:26 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 CPT-G0438 Initial Annual Wellness Exam 19:01:01 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 CPT-J3420 Vitamin B12 1000mcg (Cyanocobalamin) 16:57:46 CDT 08/14 CPT-58275 Recombivax HB Injection Suspension 5 MCG/0.5ML 08:37:50 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 CPT-31255 Immunization Single Admin 08:37:50 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 CPT-J3420 Vitamin B12 1000mcg (Cyanocobalamin) 08:32:16 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 03/11 CPT-83215 Abx/Therapy Injection 08:32:16 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 CPT-89848 Chest 2V Frontal and Lat 11:46:38 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 CPT-66876 Venipuncture Draw Fee 09:12:45 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 CPT-J3420 Vitamin B12 1000mcg (Cyanocobalamin) 08:50:15 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 02/08 CPT-22802 Abx/Therapy Injection 08:50:15 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 CPT-Cryo Cryotherapy 10:19:35 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 CPT-000 Give Appropriate Flu Vaccine 09:22:16 CDT CPT-J3420 Vitamin B12 1000mcg (Cyanocobalamin) 19:08:57 CDT 01/11 CPT-28438 Abx/Therapy Injection 19:08:57 CDT CPT-J3420 Vitamin B12 1000mcg (Cyanocobalamin) 08:19:08 CDT 12/11 CPT-77016 Abx/Therapy Injection 08:19:08 CDT CPT-J3420 Vitamin B12 1000mcg (Cyanocobalamin) 14:48:00 CDT 11/09 CPT-78041 Abx/Therapy Injection 14:47:59 CDT CPT-J3420 Vitamin B12 1000mcg (Cyanocobalamin) 08:34:04 CDT 10/09 CPT-50814 Abx/Therapy Injection 08:34:04 CDT CPT-J3420 Vitamin B12 1000mcg (Cyanocobalamin) 09:18:52 CDT 09/11 CPT-53793 Abx/Therapy Injection 09:18:52 CDT CPT-J3420 Vitamin B12 1000mcg (Cyanocobalamin) 08:35:44 CDT 09/04 CPT-78592 Abx/Therapy Injection 08:35:44 CDT CPT-31141 Immunization Single Admin 11:07:16 CDT CPT-17232 Hepatitis B adult IM 11:07:16 CDT CPT-J3420 Vitamin B12 1000mcg (Cyanocobalamin) 11:00:49 CDT 08/28 CPT-J1040 Depo Medrol 80 mg (Methyl Prednisolone Acetate) 11:00: 49 CDT CPT-99426 Abx/Therapy Injection 11:00:49 CDT CPT-J1040 Depo Medrol 80 mg (Methyl Prednisolone Acetate) 09:16: 23 CDT CPT-J3420 Vitamin B12 1000mcg (Cyanocobalamin) 08:27:05 CDT 08/20 CPT-00463 Abx/Therapy Injection 08:27:05 CDT CPT-07929 Recombivax HB Injection Suspension 5 MCG/0.5ML 10:00:41 CDT CPT-84176 Administration single or combination vaccine inc oral 10 :00:41 CDT CPT-06846 Sono transvag pelvis non OB uterus ovaries cervix 16:36: 57 CDT CPT-90983 LS spine comp w obliq 09:50:55 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 CPT-32022 Abd compl w upright 09:50:55 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 CPT-J1100 Decadron 4mg (Dexamethasone) 15:51:24 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 CPT-J1030 Depo Medrol 40 mg (Methyl Prednisolone Acetate) 15:51: 24 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 CPT-36969 Abx/Therapy Injection 15:51:24 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 CPT-J1100 Decadron 4mg (Dexamethasone) 15:26:33 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 CPT-J1030 Depo Medrol 40 mg (Methyl Prednisolone Acetate) 15:26: 33 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 CPT-17446 Sono retroperitoneal complete kidneys and bladder 17:15: 30 CDT CPT-11671 Abd compl w upright 16:09:25 CDT CPT-J1100 Decadron 8mg (Dexamethasone) 17:07:57 CDT CPT-90377 Abx/Therapy Injection 17:07:57 CDT CPT-J1100 Decadron 8mg (Dexamethasone) 16:55:24 CDT CPT-55843 Chest 2V Frontal and Lat 16:32:44 CDT
--- OUTSIDE RECORDS SUMMARY | 2016-11-05 01:10 | XMS REPORT ---
Author Author [facility] Medical Staff Organization [facility] Address [address] [place], [place] [address] Phone [phone] Summary purpose TRANSITION OF CARE AUTO GENERATION [...] tests and/or laboratory data RESULTS Routine Urinalysis 36-19-260813:48:00 Result Normal Range Units Color YELLOW Clarity Clear Specific [place] 1.010 1.003-1.035 pH 7.5 4.5-8.0 Glucose NEGATIVE Bilirubin NEGATIVE Ketones NEGATIVE Protein NEGATIVE Urobilinogen 0.2 0-0.2 E.U./dL Nitrites NEGATIVE Blood NEGATIVE Leukocytes NEGATIVE WBCs 0-5 RBCs No RBC's Seen. Squamous Epithelial 1+ Bacteria Occasional Mucous Rare Amount Chemistry [id number]:22:00 Result Normal Range Units Sodium 137 134-145 [...] 40-70 % Lymph % 27.9 20-40 % Gaston % 7.8 0-10.0 % Eos % 1.8 0-7.0 % Baso % 0.4 0-2 % Neutro # 6.3 1.5-7.5 103/uL Lymph # 2.8 0.9-4.0 103/uL Gaston # 0.8 0-0.8 103/uL Eos # 0.2 [...] patient history should be interpreted with caution. :22:00 Result Normal Range Units CK 104 26-192 [...] should be interpreted with caution. Radiology Results :22:00 Result Normal Range Units MPV 10.2 7.3-10.4 FL History of procedures No procedures recorded for this patient visit. Functional status Functional Status Finding Observation Time Abdomen Appearance obese 38-73-135771:15 Abdomen soft :15 Vick no 30-75-814886:15 Urination normal 54-89-069310:15 Quality sym/unlabored 78-63-503958:15 Cough non-productive :15 Secretions no :15 Airway natural :15 Chest Tube no :15 Oxygen no :15 Temp >100.4 no :15 Temp <96.8 no :15 Chills with rigors no :15 HR > 90bpm yes :15 Respirations > 20 no :15 Systolic <90 no :15 headache stiff neck no :15 IV Site Location R AC 30-40-164640:20 IV Type peripheral :20 IV Site Information new :20 IV Site Start Attmpt 2 times :20 IV Site Festus 20 16-81-491282:20 IV Site Appearance WNL 57-48-579268:20 IV Site Color clear :20 IV Site Patent yes 12-68-638434:20 Dressing Changed yes :20 Dressing Type occlusive 55-61-360889:20 Nursing Note EKG obtained ta thtis time. LAb at bedside for Repeat trop[onin :58 Vital signs Type Value Date Respiration Rate 16breaths per minute :40 Pulse 90beats per minute :40 Oxygen Saturation 99% :40 BP Systolic 107mmHg :40 BP Diastolic 66mmHg :40 Temperature 98.6F :40 Social history Type Value Smoking Status CURRENT EVERY DAY SMOKER Treatment Plan No treatment plan text is available for this visit. Hospital discharge instructions PNE Vac No Flu Vac 2015 Tetanus Vac 2014
--- OUTSIDE RECORDS SUMMARY | 2016-11-05 01:10 | XMS REPORT ---
Author Author [facility] Medical Staff Organization [facility] Address [address] [place], [place] [address] Phone [phone] Summary purpose TRANSITION OF CARE AUTO GENERATION [...] diagnostic tests and/or laboratory data RESULTS Chemistry [id number]:26:00 Result Normal Range Units Sodium 138 134-145 [...] 103/uL MPV 10.4 7.3-10.4 [place] Reference Lab ([facility]) :26:00 Result Normal Range Units D-Dimer < [...] should be interpreted with caution. Radiology Results :25:00 Chest X-Ray - 2 View PACs Image DATE OF EXAM: Sep 26 2015 RAD 0300-CHEST XRAY 2 VIEW : RADIOLOGY REPORT DATE OF SERVICE: 09/26/15 HISTORY:Chest pain. CHEST - 2 [id number] HOURS The lungs are clear. Heart size and pulmonary vessels are normal. There are no hilar or mediastinal abnormalities. IMPRESSION: Negative chest. MD SOLEDAD Mays/manuela 09/26/2015 16:09:00 / 09/26/2015 16:15:11 cc: This document has been electronically Signed by: On: DATE OF EXAM: Sep 26 2015 RAD 0300-CHEST XRAY 2 VIEW : RADIOLOGY REPORT DATE OF SERVICE: 09/26/15 HISTORY:Chest pain. CHEST - 2 [id number] HOURS The lungs are clear. Heart size and pulmonary vessels are normal. There are no hilar or mediastinal abnormalities. IMPRESSION: Negative chest. MD SOLEDAD Mays/manuela 09/26/2015 16:09:00 / 09/26/2015 16:15:11 cc: This document has been electronically Signed by: ELAN MAHAN MD On: Sep 27 20154:25P Result Amended on 2015-09-27 at 16:25:22. Previous status was AL. 14-00-913897:26:00 Result Normal Range Units MPV 10.4 7.3-10.4 FL History of procedures Procedure Code Code Type Description Date Performed Performing Physician 55113 CPT-4 ROUTINE VENIPUNCTURE 09-26-2015 MERT KELLY 17656 CPT-4 CHEST X-RAY 09-26-2015 MERT KELLY 95888 CPT-4 COMPREHEN METABOLIC PANEL 09-26-2015 MERT KELLY 45740 CPT-4 ASSAY OF CK (CPK) 09-26-2015 MERT KELLY 80526 CPT-4 CREATINE, MB FRACTION 09-26-2015 MERT KELLY 62848 CPT-4 NATRIURETIC PEPTIDE 09-26-2015 MERT KELLY 26073 CPT-4 ASSAY OF TROPONIN, QUANT 09-26-2015 MERT KELLY 87196 CPT-4 COMPLETE CBC, AUTOMATED 09-26-2015 MERT KELLY 73924 CPT-4 FIBRIN DEGRADATION, QUANT 09-26-2015 MERT KELLY 51465 CPT-4 ELECTROCARDIOGRAM, TRACING 09-26-2015 MERT KELLY J1885 CPT-4 TORADOL SYR 30MG/ML 09-26-2015 MERT KELLY J2060 CPT-4 LORAZEPAM INJECTION 09-26-2015 MERT KELLY J7030 CPT-4 NORMAL SALINE SOLUTION INFUS 09-26-2015 MERT KELLY 29218 CPT-4 EMERGENCY DEPT VISIT 09-26-2015 MERT KELLY 42581 CPT-4 EMERGENCY DEPT VISIT 09-26-2015 MERT KELLY 91792 CPT-4 THER/PROPH/DIAG INJ, IV PUSH 09-26-2015 MERT KELLY 98725 CPT-4 TX/PRO/DX INJ NEW DRUG ADDON 09-26-2015 MERT ROBIN 58870 CPT-4 HYDRATE IV INFUSION, ADD-ON 09-26-2015 MERT KELLY Functional status Functional Status Finding [...] 90bpm yes :50 Respirations > 20 no :50 Systolic [...] 102beats per minute : Oxygen Saturation 100% :25 BP Systolic 148mmHg :25 BP Diastolic 67mmHg :25 Temperature 97.3F :25 Social history Type Value Smoking Status CURRENT EVERY DAY SMOKER Treatment Plan No treatment plan text is available for this visit. Hospital discharge instructions Dismissal Condition good Disposition on DC home DC Inst/Educ Give yes PNE Vac No Flu Vac 2014 Tetanus Vac 2014
--- OUTSIDE RECORDS SUMMARY | 2016-11-05 01:11 | XMS REPORT | Clinical Summary ---
Author Author Admin, E Organization [employer] Address Unknown Phone Unavailable Allergies, Adverse Reactions, [...] ORAL CHEW 2 daily po PROBIOTIC PRODUCT 55521258093 Active Jillina Frazell GENERAL COUNSEL Active IBUPROFEN 600 MG TAB 1 po TID PRN IBUPROFEN 22781246121 Active Jillina Frazell GENERAL COUNSEL Active BACTRIM DS 800-160 MG TAB 1 tab by mouth twice daily TRIMETHOPRIM-SULFAMETHOXAZOLE 80748212846 Active Neeraj Collins MD Active BACTRIM DS 800-160 MG TABS 1 po BID x 7 days SULFAMETHOXAZOLE-TRIMETHOPRIM 71690690451 No Longer Active Vishal Hui MD Active CHANTIX STARTING MONTH EARNEST 0.5 MG X 11 & 1 MG X 42 TABS 0.5mg daily for 3 days , then 0.5mg BID for 4 days, then 1mg BID VARENICLINE TARTRATE 05695600082 No Longer Active TAMARA Gray Active METOPROLOL TARTRATE 50 MG TAB 1 po bid METOPROLOL TARTRATE 55697860474 Active Vishal Hui MD Active TRAZODONE HCL 100 MG TAB take 1 at bedtime TRAZODONE HCL 25834183734 Active Vishal Hui MD Active AMLODIPINE BESYLATE 5 MG TABS 1 tablet by mouth daily AMLODIPINE BESYLATE 12122350872 Active Vishal Hui MD Active VERAPAMIL HCL CR 120 MG TAB CR 1 po bid VERAPAMIL HCL 26458849113 No Longer Active Vishal Hui MD Active METOPROLOL SUCCINATE 50 MG TB24 1 tablet by mouth daily METOPROLOL SUCCINATE 35538338009 No Longer Active Vishal Hui MD Active TRAMADOL HCL 50 MG TABS 1-2 po TID PRN Pain TRAMADOL HCL 30044958435 Active Vishal Hui MD Active SAPHRIS 5 MG SUBL 1 po bid ASENAPINE MALEATE 17936664317 Active Vishal Hiu MD Active SAPHRIS 10 MG SUBL 1 tab po bid ASENAPINE MALEATE 31949967598 No Longer Active Vishal Hui MD Active LISINOPRIL 20 MG TABS 1 tab po qd LISINOPRIL 16296857525 No Longer Active Vishal Hui MD Active BENADRYL 25 MG CAP 2 po tid prn anxiety DIPHENHYDRAMINE HCL 84664932727 Active Vishal Hui MD Active LATUDA 80 MG TABS Take one by mouth daily LURASIDONE HCL 83973501619 Active Vishal Hui MD Active LATUDA 20 MG TABS Take one by mouth daily LURASIDONE HCL 53040537112 No Longer Active Vishal Hui MD Active TRAZODONE HCL 50 MG TABS 1/2 tab po qd prn for anxiety TRAZODONE HCL 49631967223 No Longer Active Vishal Hui MD Active PIROXICAM 20 MG CAPS 1 cap po qd PRN Pain PIROXICAM 64741279545 Active Vishal Hui MD Active OMEPRAZOLE 20 MG TBEC 1 po q a.m. 30min prior to first food intake OMEPRAZOLE 51011406410 Active Vishal Hui MD Active RANITIDINE HCL 150 MG CAPS 1 twice a day RANITIDINE HCL 20674421503 Active Vishal Hui MD Active MULTIVITAMINS CAPS Take one by mouth daily MULTIPLE VITAMIN 50300892709 Active Vishal Hui MD Active MELATONIN 3 MG CAPS 2 po q hs MELATONIN 65767851016 Active Vishal Hui MD Active PROZAC 20 MG CAP Take one by mouth daily FLUOXETINE HCL 95342559147 Active Vishal Hui MD Active LINZESS 290 MCG CAPS Take one by mouth daily LINACLOTIDE 29520106840 Active Vishal Hui MD Active SAPHRIS 5 MG SUBL 1 tab po qd ASENAPINE MALEATE 57996200200 No Longer Active Vishal Hui MD Active ZALEPLON 10 MG CAPS 1 cap po every other night ZALEPLON 38286036223 No Longer Active Vishal Hui MD Active LYRICA 50 MG CAPS 1 tab po TID PREGABALIN 37916030598 No Longer Active Vishal Hui MD Active LORATADINE 10 MG TABS 1 tab po qd LORATADINE 26949620400 No Longer Active Vishal Hui MD Active VERAPAMIL HCL ER 180 MG CR-TABS 1 tab po bid VERAPAMIL HCL 83546852021 No Longer Active Vishal Hui MD Active MIRALAX POWD 1 capfull once daily POLYETHYLENE GLYCOL 3350 11160061752 No Longer Active Vishal Hui MD Active PREDNISONE 20 MG TABS 1 tab po qd PREDNISONE 78400749876 No Longer Active Renzo Thornton DO Active LEVOFLOXACIN 500 MG TABS 1 tab po qd LEVOFLOXACIN 23277606395 No Longer Active Renzo Thornton DO Active BUSPIRONE HCL 15 MG TABS 1 tab po TID BUSPIRONE HCL 23229652612 No Longer Active Renzo Thornton DO Active BENZTROPINE MESYLATE 1 MG TABS 1 tab po qd BENZTROPINE MESYLATE 24116734603 No Longer Active Renzo Thornton DO Active ATENOLOL 25 MG TABS 1 tab po qd ATENOLOL 32647147570 No Longer Active Renzo Thornton DO Active ESCITALOPRAM OXALATE 20 MG TABS 1 tab po qd ESCITALOPRAM OXALATE 26073939791 No Longer Active Renzo Thornton DO Active ADVAIR DISKUS 250-50 MCG/DOSE AEPB 1 puff BID FLUTICASONE-SALMETEROL 45977069021 No Longer Active Renzo Thornton DO Active PREDNISONE 20 MG TAB 2 tabs daily for 3 days, 1 tab daily for 3 days, 1/2 tab daily for 2 days PREDNISONE 96822459538 No Longer Active Vishal Hui MD Active CEFDINIR 300 MG CAPS by mouth twice a day CEFDINIR 76674436853 No Longer Active Vishal Hui MD Active LANSOPRAZOLE 30 MG CPDR 1 cap po qd LANSOPRAZOLE 39985048385 No Longer Active Vishal Hui MD Active TOPAMAX 25 MG TABS 1 tab po bid TOPIRAMATE 19791980718 Active Vishal Hui MD Active MINIPRESS 2 MG CAPS 1 cap po at night PRAZOSIN HCL 78620038550 Active Vishal Hui MD Active BACLOFEN 20 MG TABS 1 tab po tid BACLOFEN 15453478870 Active Vishal Hui MD Active ADVAIR DISKUS 250-50 MCG/DOSE AEPB 1 puff BID ADVAIR DISKUS 250-50 MCG/DOSE AEPB FLUTICASONE-SALMETEROL Inactive ESCITALOPRAM OXALATE 20 MG TABS 1 tab po qd ESCITALOPRAM OXALATE 20 MG TABS 109348 ESCITALOPRAM OXALATE Inactive ATENOLOL 25 MG TABS 1 tab po qd ATENOLOL 25 MG TABS 978450 ATENOLOL Inactive BENZTROPINE MESYLATE 1 MG TABS 1 tab po qd BENZTROPINE MESYLATE 1 MG TABS 952389 BENZTROPINE MESYLATE Inactive BUSPIRONE HCL 15 MG TABS 1 tab po TID BUSPIRONE HCL 15 MG TABS 468790 BUSPIRONE HCL Inactive LEVOFLOXACIN 500 MG TABS 1 tab po qd LEVOFLOXACIN 500 MG TABS 084925 LEVOFLOXACIN Inactive PREDNISONE 20 MG TABS 1 tab po qd PREDNISONE 20 MG TABS 241298 PREDNISONE Inactive MIRALAX POWD 1 capfull once daily MIRALAX POWD 114637 POLYETHYLENE GLYCOL 3350 Inactive VERAPAMIL HCL ER 180 MG CR-TABS 1 tab po bid VERAPAMIL HCL ER 180 MG CR-TABS VERAPAMIL HCL Inactive LORATADINE 10 MG TABS 1 tab po qd LORATADINE 10 MG TABS 017170 LORATADINE Inactive LYRICA 50 MG CAPS 1 tab po TID LYRICA 50 MG CAPS PREGABALIN Inactive ZALEPLON 10 MG CAPS 1 cap po every other night ZALEPLON 10 MG CAPS 518603 ZALEPLON Inactive SAPHRIS 5 MG SUBL 1 tab po qd SAPHRIS 5 MG SUBL ASENAPINE MALEATE Inactive TRAZODONE HCL 50 MG TABS 1/2 tab po qd prn for anxiety TRAZODONE HCL 50 MG TABS 681936 TRAZODONE HCL Inactive LATUDA 20 MG TABS Take one by mouth daily LATUDA 20 MG TABS LURASIDONE HCL Inactive LISINOPRIL 20 MG TABS 1 tab po qd LISINOPRIL 20 MG TABS 650647 LISINOPRIL Inactive SAPHRIS 10 MG SUBL 1 [...] twice a day CEFDINIR 300 MG CAPS 002924 CEFDINIR Inactive PREDNISONE 20 MG TAB 2 tabs daily for 3 days, 1 tab daily for 3 days, 1/2 tab daily for 2 days PREDNISONE 20 MG TAB 862638 PREDNISONE Inactive BACTRIM DS 800-160 MG TABS [...] U/L Chart Maintenance: outside labs entered on [employer] - Hematology leukocyte count, blood 8.9 10*3/mm3 hemoglobin, blood 13.2 g/dL platelet count 364 10*3/mm3 Lab Report: Comp. Metabolic Panel - Chemistry sodium, serum 141 mmol/L 064-711 4649 potassium, serum 4.3 mmol/L 3.5-5.2 chloride, serum [...] Panel - Chemistry sodium, serum 139 mmol/L 069-913 0562/12/31 potassium, serum 4.8 mmol/L 3.5-5.2 chloride, serum 106 mmol/L 98-107 carbon dioxide, venous blood 24.3 mmol/L 21.0-32.0 blood glucose 90 mg/dL 65-110 urea nitrogen, blood 16 mg/dL 7-18 creatinine, serum 1.00 mg/dL 0.60-1.30 alanine aminotransferase (SGPT), serum 41 U/L aspartate aminotransferase (SGOT), serum 17 U/L 15-37 calcium, serum 8.6 mg/dL 8.5-10.1 bilirubin, serum, total 0.30 mg/dL 0.00-1.00 cholesterol, serum 108 mg/dL 455-573 7920/12/31 triglyceride, serum, fasting 120 mg/dL 30-200 HDL [...] 5.0-8.5 Encounters Code Encounter Date Provider Facility CPT-50875 Level 3 Est. Patient 14:49:50 CDT Vishal Hui MD [facility] CPT-56297 Level 4 Est. Patient 18:41:46 CDT Neeraj Collins MD [facility] CPT-73304 Level 4 Est. Patient 09:18:38 UTILIZATION REVIEW NURSE Vishal Hui MD [facility] CPT-87888 Level 3 Est. Patient 14:43:55 UTILIZATION REVIEW NURSE Vishal Hui MD [facility] CPT-49745 Level 3 Est. Patient 15:26:33 UTILIZATION REVIEW NURSE Sahara Rodriguez MD PhD [facility] CPT-32358 Level 3 Est. Patient 10:32:14 UTILIZATION REVIEW NURSE Vishal Hui MD [facility] CPT-41368 Level 3 Est. Patient 15:12:52 UTILIZATION REVIEW NURSE Vishal Hui MD [facility] CPT-68042 Level 4 Est. Patient 09:19:27 CDT Vishal Hui MD [facility] CPT-64396 Level 3 Est. Patient 15:53:00 CDT Renzo Thornton [facility] CPT-26599 Level 3 Est. Patient 15:50:30 CDT Renzo Thornton [facility] CPT-58744 Level 3 Est. Patient 16:55:24 CDT Vishal Hui MD [facility] Procedures Code Procedure Name Date Entry Date Standard Description CPT-83300 Sono transvag pelvis non OB uterus ovaries cervix 16:36: 57 CDT CPT-41715 LS spine comp w obliq 09:50:55 UTILIZATION REVIEW NURSE CPT-61321 Abd compl w upright 09:50:55 UTILIZATION REVIEW NURSE CPT-J1100 Decadron 4mg (Dexamethasone) 15:51:24 UTILIZATION REVIEW NURSE CPT-J1030 Depo Medrol 40 mg (Methyl Prednisolone Acetate) 15:51: 24 UTILIZATION REVIEW NURSE CPT-19395 Abx/Therapy Injection 15:51:24 UTILIZATION REVIEW NURSE CPT-J1100 Decadron 4mg (Dexamethasone) 15:26:33 UTILIZATION REVIEW NURSE CPT-J1030 Depo Medrol 40 mg (Methyl Prednisolone Acetate) 15:26: 33 UTILIZATION REVIEW NURSE CPT-09767 Sono retroperitoneal complete kidneys and bladder 17:15: 30 CDT CPT-67518 Abd compl w upright 16:09:25 CDT CPT-J1100 Decadron 8mg (Dexamethasone) 17:07:57 CDT CPT-49431 Abx/Therapy Injection 17:07:57 CDT CPT-J1100 Decadron 8mg (Dexamethasone) 16:55:24 CDT CPT-99459 Chest 2V Frontal and Lat 16:32:44 CDT
--- OUTSIDE RECORDS SUMMARY | 2016-11-05 01:15 | XMS REPORT | Clinical Summary ---
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 V72.31 Active Suzan Boo [...] MD Health screening ICD-V70.0 Inactive Suzan Boo PRACTICE PERFORMANCE MANAGER Sinus tachycardia ICD-427.89 Inactive Suzan Boo PRACTICE PERFORMANCE MANAGER Smoker/tobacco use disorder-smoking cessation discussed ICD-305.1 [...] TABS 1 by mouth for yeast FLUCONAZOLE 48308278593 Active Suzan Boo APRN Active LACTULOSE 10 GM/15ML ORAL SOLN 30mL oral BID for IBS-C LACTULOSE 47575426521 Active Suzan Boo APRN Active BACTRIM DS 800-160 MG TABS 1 twice a day SULFAMETHOXAZOLE- TRIMETHOPRIM 49541482201 Active Suzan Boo APRN Active MUPIROCIN 2 % OINT apply twice a day MUPIROCIN 17322159241 Active Suzan Boo APRN Active TESSALON PERLES 100 MG CAPS 1 three times a day as needed for cough BENZONATATE 51765321608 No Longer Active Suzan Boo APRN Active BACTRIM DS 800-160 MG TABS 1 twice a day SULFAMETHOXAZOLE-TRIMETHOPRIM 28935967608 No Longer Active Suzan Boo APRN Active DIFLUCAN 150 MG TABS 1 by mouth for yeast FLUCONAZOLE 64034275444 No Longer Active Suzan Boo APRN Active EQ NICOTINE 21 MG/24HR TRANS PT24 Apply daily to stop smoking NICOTINE 98289269153 No Longer Active Suzan Boo APRN Active PREDNISONE 10 MG TABS 2 daily for 5 days then 1 daily for 5 days PREDNISONE 30727354467 No Longer Active Suzan Boo APRN Active LEVAQUIN 500 MG TABS 1 daily for infection LEVOFLOXACIN 38742564712 No Longer Active Suzan Boo APRN Active TROPICAMIDE 0.5 % OPHTH SOLN 1 drop PRN eye spasms TROPICAMIDE 77339024669 No Longer Active Suzan Boo APRN Active PREDNISONE 20 MG TAB 1 tablet daily x 4 days PREDNISONE 50376786854 No Longer Active Suzan Boo APRN Active ACETAMINOPHEN-CODEINE 120-12 MG/5ML SOLN 5 ml by mouth every 4-6 hours if needed for cough ACETAMINOPHEN-CODEINE 11169390905 No Longer Active Suzan Boo APRN Active KEFLEX 500 MG CAP 1 po qid CEPHALEXIN 83232417901 No Longer Active Suzan Boo APRN Active FLOVENT HFA 110 MCG/ACT AERO 2 puffs inhaled b.i.d. FLUTICASONE PROPIONATE HFA 49077319515 Active Renzo Barajas Norberto FONSECA Active RISPERDAL 4 MG ORAL TABS 1 tab at bedtime RISPERIDONE 54664730743 Active Samantha Rothman RMA Active ZOFRAN 4 MG TABS 1 po q6hr PRN Nausea ONDANSETRON HCL No Longer Active Suzan Boo APRN Active FLUTICASONE PROPIONATE 50 MCG/ACT SUSP 2 sprays each nostril daily before bed. FLUTICASONE PROPIONATE 45163112622 No Longer Active Suzan Boo APRN Active ASPIRIN 325 MG ORAL TABS 1 tab q.d ASPIRIN 44466796377 No Longer Active Suzan Boo APRN Active HALOPERIDOL 10 MG ORAL TABS 1 tab q.d HALOPERIDOL 88870869676 No Longer Active Suzan Boo APRN Active GUAIFENESIN-CODEINE 100-10 MG/5ML SYRP 5ml every 4 to 6 hours as needed for cough GUAIFENESIN-CODEINE 14452658297 No Longer Active Suzan Boo APRN Active ZITHROMAX Z-EARNEST 250 MG TABS 2 today and then 1 daily for 4 days AZITHROMYCIN 45736002584 No Longer Active Suzan Boo APRN Active CLONAZEPAM 1 MG ORAL TABS 1 twice a day and an additional 1 tablet every other day as needed for pseudoseizures or anxiety CLONAZEPAM 96316259679 Active Suzan Boo APRN Active HYDROCODONE-ACETAMINOPHEN 5-325 MG ORAL TABS 1 tab two times a day HYDROCODONE-ACETAMINOPHEN 60443594516 No Longer Active Ahmet Carbajal MD Active LAMICTAL 100 MG ORAL TABS 1 tab 2 times qd. LAMOTRIGINE 41674793043 Active Ahmet Carbajal MD Active PREDNISONE 20 MG TABS 2 daily for 5 days then 1 daily for 5 days PREDNISONE 41623335921 No Longer Active Ahmet Carbajal MD Active FLUTICASONE PROPIONATE 50 MCG/ACT SUSP 1 to 2 sprays each nostril daily for allergies FLUTICASONE PROPIONATE 90814779262 Active Tila Nicolas Active BENADRYL 25 MG CAP 4 po at bedtime for insomnia DIPHENHYDRAMINE HCL 08407676044 No Longer Active Ahmet Carbajal MD Active ADVAIR DISKUS 250-50 MCG/DOSE INH AEPB 1 puff twice a day for asthma FLUTICASONE-SALMETEROL 96050493642 No Longer Active Ahmet Carbajal MD Active KLONOPIN 1 MG ORAL TABS 1 tab po TID CLONAZEPAM 43325052924 No Longer Active Ahmet Carbajal MD Active ABILIFY MAINTENA 400 MG IM SUSR 400mg injection every 26 days ARIPIPRAZOLE 48527470330 No Longer Active Ahmet Carbajal MD Active TRAMADOL HCL 50 MG TABS 1/2-1 tab TID PRN TRAMADOL HCL 86696033497 No Longer Active Ahmet Carbajal MD Active BACTRIM DS 800-160 MG TABS 1 twice a day SULFAMETHOXAZOLE- TRIMETHOPRIM 37659718923 No Longer Active Ahmet Carbajal MD Active PROAIR HFA 108 (90 BASE) MCG/ACT AERS 2 puffs four times a day as needed 2015 ALBUTEROL SULFATE 53553562848 Active Honey Hinton PRACTICE PERFORMANCE MANAGER Active MONISTAT 7 COMBO PACK WOODROW 100 & 2 MG-% (9GM) VAG KIT 1 applicatorful per vagina q pm x 7 MICONAZOLE NITRATE 26226229982 No Longer Active Ahmet Carbajal MD Active FLAGYL 500 MG TAB 1 tablet by mouth bid METRONIDAZOLE 74185039101 No Longer Active Ahmet Carbajal MD Active OXYCODONE HCL ER 10 MG ORAL T12A 1/2 tab by mouth every 4 hours prn OXYCODONE HCL 44406078198 No Longer Active Ahmet Carbajal MD Active METHYLPREDNISOLONE 4 MG ORAL TABS po daily METHYLPREDNISOLONE 20597825453 No Longer Active Ahmet Carbajal MD Active LEVOFLOXACIN 500 MG ORAL TABS po daily LEVOFLOXACIN 26212367188 No Longer Active Ahmet Carbajal MD Active VIIBRYD 10 MG ORAL TABS Take 1 tablet once a day VILAZODONE HCL 40222094360 No Longer Active Ahmet Carbajal MD Active TOPAMAX 50 MG ORAL TABS 1 tab twice daily TOPIRAMATE 61822264847 No Longer Active Ahmet Carbajal MD Active DICLOFENAC SODIUM 50 MG TBEC 1 tablet by mouth four times daily PRN Pain 2015 DICLOFENAC SODIUM 30951006310 No Longer Active Ahemt Carbajal MD Active ADZENYS XR-ODT 6.3 MG ORAL TBED 1 tab po daily for ADHD AMPHETAMINE 23182528942 No Longer Active Ahmet Carbajal MD Active CHANTIX 1 MG TABS 1 twice a day to help quit smoking VARENICLINE TARTRATE 44348676617 No Longer Active Dipika Burgos MD Active CHANTIX STARTING MONTH EARNEST 0.5 MG X 11 & 1 MG X 42 TABS take as directed 2015 VARENICLINE TARTRATE 39375078943 No Longer Active Dipika Burgos MD Active TESSALON PERLES 100 MG CAP 1 to 2 tablets by mouth 3 times daily as needed for cough BENZONATATE 49717572470 No Longer Active Luigi Martínez APRN Active IMITREX 50 MG ORAL TABS 0.5 po x 1 PRN Headache. May repeat dose x 1 in 2 hours if needed SUMATRIPTAN SUCCINATE 34363720168 Active Ahmet Carbajal MD Active HYDROCODONE-ACETAMINOPHEN 5-325 MG TABS 1 to 2 four times a day as needed for pain use until can be seen by specialist HYDROCODONE- ACETAMINOPHEN 14162843542 No Longer Active Vishal Hui MD Active PROAIR HFA 108 (90 BASE) MCG/ACT AERS 2 puffs four times a day as needed 2015 ALBUTEROL SULFATE 35502505156 No Longer Active Vishal Hui MD Active PREDNISONE 20 MG TABS 2 daily for 5 days then 1 daily for 5 days PREDNISONE 00267674945 No Longer Active Vishal Hui MD Active ZITHROMAX Z-EARNEST 250 MG TABS 2 today and then 1 daily for 4 days AZITHROMYCIN 03815944113 No Longer Active Vishal Hui MD Active DICLOFENAC POTASSIUM TABS Take 1 tablet twice a day (pt. is not sure of the dose.) DICLOFENAC POTASSIUM TABS 63511344477 No Longer Active Vishal Hui MD Active VERAPAMIL HCL ER 120 MG ORAL CR-TABS Take 1 tablet by mouth twice a day. VERAPAMIL HCL 97456509575 Active Vishal Hui MD Active FLAGYL 500 MG TAB 1 tablet by mouth bid METRONIDAZOLE 06752888810 No Longer Active Vishal Hui MD Active VALIUM 5 MG TAB Take 1-2 tablets daily DIAZEPAM 65534517890 No Longer Active Fabiola Johnson APRN Active METOPROLOL TARTRATE 25 MG ORAL TABS 1/2 tablet twice daily for heart rate and blood pressure METOPROLOL TARTRATE 32460989239 No Longer Active Fabiola Johnson APRN Active MIRALAX ORAL POWD 17GMS DAILY IN WATER POLYETHYLENE GLYCOL 3350 87532166657 Active TAMARA Casey Active MIRALAX PACK 1 po qd PRN Constipation POLYETHYLENE GLYCOL 3350 41355118261 No Longer Active Ahmet Carbajal MD Active MINIPRESS 2 MG CAPS 4 cap po at night PRAZOSIN HCL 98224794210 No Longer Active Ahmet Carbajal MD Active PIROXICAM 20 MG CAPS 1 cap po qd PRN Pain PIROXICAM 37061495756 No Longer Active Ahmet Carbajal MD Active TRAMADOL HCL 50 MG TABS 1-2 po TID PRN Pain TRAMADOL HCL 16255777941 No Longer Active Ahmet Carbajal MD Active METOPROLOL TARTRATE 50 MG TAB 1 po bid METOPROLOL TARTRATE 55414775382 No Longer Active Ahmet Carbajal MD Active ABILIFY 15 MG ORAL TABS 1 tab daily ARIPIPRAZOLE 29907895335 No Longer Active Ahmet Carabjal MD Active PROZAC 20 MG ORAL CAPS 1 tab daily FLUOXETINE HCL 82999870374 No Longer Active Ahmet Carbajal MD Active AMBIEN 5 MG ORAL TABS 1 tab at bedtime ZOLPIDEM TARTRATE 05012654854 No Longer Active Ahmet Carbajal MD Active PREDNISONE 20 MG TAB 2 tabs daily for 4 days, 1 tab daily for 4 days, 1/2 tab daily for 4 days PREDNISONE 23050042210 No Longer Active Ahmet Carbajal MD Active KEFLEX 500 MG CAP 1 po TID x 10 days CEPHALEXIN 76854920596 No Longer Active Vishal Hui MD Active SAPHRIS 5 MG SUBL 1 po bid ASENAPINE MALEATE 92181119285 No Longer Active Jillina Frazell PRACTICE PERFORMANCE MANAGER Active LATUDA 80 MG TABS Take one by mouth daily LURASIDONE HCL 37909598992 No Longer Active Jillina Frazell PRACTICE PERFORMANCE MANAGER Active AMLODIPINE BESYLATE 5 MG TABS 1 tablet by mouth daily AMLODIPINE BESYLATE 08835051049 No Longer Active Jillina Frazell PRACTICE PERFORMANCE MANAGER Active AMITRIPTYLINE HCL 100 MG TAB one at hs AMITRIPTYLINE HCL 72947894391 No Longer Active Vishal Hui MD Active TRAZODONE HCL 100 MG TAB take 1 at bedtime TRAZODONE HCL 32619859362 No Longer Active Vishal Hui MD Active VYVANSE 40 MG CAPS 1 daily, LISDEXAMFETAMINE DIMESYLATE 83402013851 No Longer Active Vishal Hui MD Active IBUPROFEN 600 MG TAB 1 po TID PRN IBUPROFEN 02576233212 No Longer Active Vishal Hui MD Active PROZAC 20 MG CAP Take one by mouth daily FLUOXETINE HCL 62011416075 No Longer Active Vishal Hui MD Active BACTRIM DS 800-160 MG TABS 1 pill by mouth twice daily SULFAMETHOXAZOLE-TRIMETHOPRIM 99536275322 No Longer Active Sahara Rodriguez MD PhD Active DIFLUCAN 150 MG TAB 1 tablet by mouth daily FLUCONAZOLE 47767733886 No Longer Active Vishal Hui MD Active TIZANIDINE HCL 4 MG TABS 1 po q6hr PRN Muscle Spasm/Back Pain TIZANIDINE HCL 02779414323 Active Vishal Hui MD Active CLINDAMYCIN HCL 150 MG CAPS 1 four times a day CLINDAMYCIN HCL 97835481211 No Longer Active Neeraj Collins MD Active KEFLEX 500 MG ORAL CAPS 1 cap QID by mouth CEPHALEXIN 90324072397 No Longer Active Neeraj Collins MD Active DIFLUCAN 150 MG TABS 1 pill every other day x 2 doses FLUCONAZOLE 57356541470 No Longer Active Sahara Rodriguez MD PhD Active MELATONIN 3 MG CAPS 2 po q hs MELATONIN 64689513290 No Longer Active Sahara Rodriguez MD PhD Active MULTIVITAMINS CAPS Take one by mouth daily MULTIPLE VITAMIN 28571218777 No Longer Active Sahraa Rodriguez MD PhD Active BACTRIM DS 800-160 MG TAB 1 tab by mouth twice daily TRIMETHOPRIM-SULFAMETHOXAZOLE 26935916080 No Longer Active Sahara Rodriguez MD PhD Active [facility] PROBIOTIC ORAL CHEW 2 daily po PROBIOTIC PRODUCT 37604311537 No Longer Active Sahara Rodriguez MD PhD Active BACTRIM DS 800-160 MG TABS 1 po BID x 7 days SULFAMETHOXAZOLE-TRIMETHOPRIM 06057498019 No Longer Active Vishal Hui MD Active CHANTIX STARTING MONTH EARNEST 0.5 MG X 11 & 1 MG X 42 TABS 0.5mg daily for 3 days , then 0.5mg BID for 4 days, then 1mg BID VARENICLINE TARTRATE 75084878235 No Longer Active TAMARA Gray Active VERAPAMIL HCL CR 120 MG TAB CR 1 po bid VERAPAMIL HCL 47328479571 No Longer Active Vishal Hui MD Active METOPROLOL SUCCINATE 50 MG TB24 1 tablet by mouth daily METOPROLOL SUCCINATE 41291309415 No Longer Active Vishal Hui MD Active SAPHRIS 10 MG SUBL 1 tab po bid ASENAPINE MALEATE 23474138205 No Longer Active Vishal Hui MD Active LISINOPRIL 20 MG TABS 1 tab po qd LISINOPRIL 17008162563 No Longer Active Vishal Hui MD Active LATUDA 20 MG TABS Take one by mouth daily LURASIDONE HCL 10870246143 No Longer Active Vishal Hui MD Active TRAZODONE HCL 50 MG TABS 1/2 tab po qd prn for anxiety TRAZODONE HCL 19642038434 No Longer Active Vishal Hui MD Active OMEPRAZOLE 20 MG TBEC 1 po q a.m. 30min prior to first food intake OMEPRAZOLE 73738728297 Active TAMARA Casey Active RANITIDINE HCL 150 MG CAPS 1 twice a day RANITIDINE HCL 31575240059 Active Luigi Martínez APRN Active LINZESS 290 MCG CAPS Take one by mouth daily LINACLOTIDE 45497468812 No Longer Active Vishal Hui MD Active SAPHRIS 5 MG SUBL 1 tab po qd ASENAPINE MALEATE 01623045945 No Longer Active Vishal Hui MD Active ZALEPLON 10 MG CAPS 1 cap po every other night ZALEPLON 16885723882 No Longer Active Vishal Hui MD Active LYRICA 50 MG CAPS 1 tab po TID PREGABALIN 17476939425 No Longer Active Vishal Hui MD Active LORATADINE 10 MG TABS 1 tab po qd LORATADINE 23203480334 No Longer Active Vishal Hui MD Active VERAPAMIL HCL ER 180 MG CR-TABS 1 tab po bid VERAPAMIL HCL 37138186291 No Longer Active Vishal Hui MD Active MIRALAX POWD 1 capfull once daily POLYETHYLENE GLYCOL 3350 51556336509 No Longer Active Vishal Hui MD Active PREDNISONE 20 MG TABS 1 tab po qd PREDNISONE 17023891666 No Longer Active Renzo Thornton DO Active LEVOFLOXACIN 500 MG TABS 1 tab po qd LEVOFLOXACIN 82101765958 No Longer Active Renzo Thornton DO Active BUSPIRONE HCL 15 MG TABS 1 tab po TID BUSPIRONE HCL 16704402836 No Longer Active Renzo Thornton DO Active BENZTROPINE MESYLATE 1 MG TABS 1 tab po qd BENZTROPINE MESYLATE 27562337820 No Longer Active Renzo Thornton DO Active ATENOLOL 25 MG TABS 1 tab po qd ATENOLOL 96624353384 No Longer Active Renzo Thornton DO Active ESCITALOPRAM OXALATE 20 MG TABS 1 tab po qd ESCITALOPRAM OXALATE 76156307808 No Longer Active Renzo Thornton DO Active ADVAIR DISKUS 250-50 MCG/DOSE AEPB 1 puff BID FLUTICASONE-SALMETEROL 84148634800 No Longer Active Renzo Thornton DO Active PREDNISONE 20 MG TAB 2 tabs daily for 3 days, 1 tab daily for 3 days, 1/2 tab daily for 2 days PREDNISONE 36141748669 No Longer Active Vishal Hui MD Active CEFDINIR 300 MG CAPS by mouth twice a day CEFDINIR 57702840160 No Longer Active Vishal Hui MD Active LANSOPRAZOLE 30 MG CPDR 1 cap po qd LANSOPRAZOLE 13480729251 No Longer Active Vishal Hui MD Active BACLOFEN 20 MG TABS 1 tab po tid BACLOFEN 49319650466 No Longer Active Vishal Hui MD Active ADVAIR DISKUS 250-50 MCG/DOSE AEPB 1 puff BID ADVAIR DISKUS 250-50 MCG/DOSE AEPB FLUTICASONE-SALMETEROL Inactive ESCITALOPRAM OXALATE 20 MG TABS 1 tab po qd ESCITALOPRAM OXALATE 20 MG TABS 292038 ESCITALOPRAM OXALATE Inactive ATENOLOL 25 MG TABS 1 tab po qd ATENOLOL 25 MG TABS 463250 ATENOLOL Inactive BENZTROPINE MESYLATE 1 MG TABS 1 tab po qd BENZTROPINE MESYLATE 1 MG TABS 689817 BENZTROPINE MESYLATE Inactive BUSPIRONE HCL 15 MG TABS 1 tab po TID BUSPIRONE HCL 15 MG TABS 952118 BUSPIRONE HCL Inactive LEVOFLOXACIN 500 MG TABS 1 tab po qd LEVOFLOXACIN 500 MG TABS 872991 LEVOFLOXACIN Inactive PREDNISONE 20 MG TABS 1 tab po qd PREDNISONE 20 MG TABS 255018 PREDNISONE Inactive MIRALAX POWD 1 capfull once daily MIRALAX POWD 695911 POLYETHYLENE GLYCOL 3350 Inactive VERAPAMIL HCL ER 180 MG CR-TABS 1 tab po bid VERAPAMIL HCL ER 180 MG CR-TABS VERAPAMIL HCL Inactive LORATADINE 10 MG TABS 1 tab po qd LORATADINE 10 MG TABS 029696 LORATADINE Inactive LYRICA 50 MG CAPS 1 tab po TID LYRICA 50 MG CAPS PREGABALIN Inactive ZALEPLON 10 MG CAPS 1 cap po every other night ZALEPLON 10 MG CAPS 702058 ZALEPLON Inactive SAPHRIS 5 MG SUBL 1 tab po qd SAPHRIS 5 MG SUBL ASENAPINE MALEATE Inactive TRAZODONE HCL 50 MG TABS 1/2 tab po qd prn for anxiety TRAZODONE HCL 50 MG TABS 824248 TRAZODONE HCL Inactive LATUDA 20 MG TABS Take one by mouth daily LATUDA 20 MG TABS LURASIDONE HCL Inactive LISINOPRIL 20 MG TABS 1 tab po qd LISINOPRIL 20 MG TABS 290688 LISINOPRIL Inactive SAPHRIS 10 MG SUBL 1 [...] twice daily BACTRIM DS 800-160 MG TAB 771286 TRIMETHOPRIM-SULFAMETHOXAZOLE Inactive MULTIVITAMINS CAPS Take one by mouth daily MULTIVITAMINS CAPS MULTIPLE VITAMIN Inactive MELATONIN 3 MG CAPS 2 po q hs MELATONIN 3 MG CAPS 19950526 MELATONIN Inactive KEFLEX 500 MG ORAL CAPS 1 cap QID by mouth KEFLEX 500 MG ORAL CAPS 687162 CEPHALEXIN Inactive CLINDAMYCIN HCL 150 MG CAPS 1 four times a day CLINDAMYCIN HCL 150 MG CAPS 513495 CLINDAMYCIN HCL Inactive DIFLUCAN 150 MG TAB 1 tablet by mouth daily DIFLUCAN 150 MG TAB 115384 FLUCONAZOLE Inactive PROZAC 20 MG CAP Take one by mouth daily PROZAC 20 MG CAP 708906 FLUOXETINE HCL Inactive IBUPROFEN 600 MG TAB 1 po TID PRN IBUPROFEN 600 MG TAB 305963 IBUPROFEN Inactive VYVANSE 40 MG CAPS 1 daily, VYVANSE 40 MG CAPS LISDEXAMFETAMINE DIMESYLATE Inactive TRAZODONE HCL 100 MG TAB take 1 at bedtime TRAZODONE HCL 100 MG TAB 910133 TRAZODONE HCL Inactive AMITRIPTYLINE HCL 100 MG TAB one at hs AMITRIPTYLINE HCL 100 MG TAB 501560 AMITRIPTYLINE HCL Inactive AMLODIPINE BESYLATE 5 MG TABS 1 tablet by mouth daily AMLODIPINE BESYLATE 5 MG TABS 169127 AMLODIPINE BESYLATE Inactive LATUDA 80 MG TABS Take one by mouth daily LATUDA 80 MG TABS LURASIDONE HCL Inactive SAPHRIS 5 MG SUBL 1 po bid SAPHRIS 5 MG SUBL ASENAPINE MALEATE Inactive PREDNISONE 20 MG TAB 2 tabs daily for 4 days, 1 tab daily for 4 days, 1/2 tab daily for 4 days PREDNISONE 20 MG TAB 731795 PREDNISONE Inactive AMBIEN 5 MG ORAL TABS 1 tab at bedtime AMBIEN 5 MG ORAL TABS 852924 ZOLPIDEM TARTRATE Inactive PROZAC 20 MG ORAL CAPS 1 tab daily PROZAC 20 MG ORAL CAPS 954216 FLUOXETINE HCL Inactive ABILIFY 15 MG ORAL TABS 1 tab daily ABILIFY 15 MG ORAL TABS 252857 ARIPIPRAZOLE Inactive METOPROLOL TARTRATE 50 MG TAB 1 po bid METOPROLOL TARTRATE 50 MG TAB 504473 METOPROLOL TARTRATE Inactive TRAMADOL HCL 50 MG TABS 1-2 po TID PRN Pain TRAMADOL HCL 50 MG TABS 377086 TRAMADOL HCL Inactive PIROXICAM 20 MG CAPS 1 cap po qd PRN Pain PIROXICAM 20 MG CAPS 884964 PIROXICAM Inactive MINIPRESS 2 MG CAPS 4 cap po at night MINIPRESS 2 MG CAPS 329441 PRAZOSIN HCL Inactive MIRALAX PACK 1 po qd PRN Constipation MIRALAX PACK 177424 POLYETHYLENE GLYCOL 3350 Inactive METOPROLOL TARTRATE 25 MG ORAL TABS 1/2 tablet twice daily for heart rate and blood pressure METOPROLOL TARTRATE 25 MG ORAL TABS 568561 METOPROLOL TARTRATE Inactive VALIUM 5 MG TAB Take 1-2 tablets daily VALIUM 5 MG TAB 257644 DIAZEPAM Inactive FLAGYL 500 MG TAB 1 tablet by mouth bid FLAGYL 500 MG TAB 533130 METRONIDAZOLE Inactive DICLOFENAC POTASSIUM TABS Take 1 tablet twice a day (pt. is not sure of the dose.) DICLOFENAC POTASSIUM TABS DICLOFENAC POTASSIUM TABS Inactive ZITHROMAX Z-EARNEST 250 MG TABS 2 today and then 1 daily for 4 days ZITHROMAX Z-EARNEST 250 MG TABS 4743907 AZITHROMYCIN Inactive PREDNISONE 20 MG TABS 2 daily for 5 days then 1 daily for 5 days PREDNISONE 20 MG TABS 001531 PREDNISONE Inactive PROAIR HFA 108 (90 BASE) MCG/ACT AERS 2 puffs four times a day as needed 2015 PROAIR HFA 108 (90 BASE) MCG/ACT AERS ALBUTEROL SULFATE Inactive HYDROCODONE-ACETAMINOPHEN 5-325 MG TABS 1 to 2 four times a day as needed for pain use until can be seen by specialist HYDROCODONE- ACETAMINOPHEN 5-325 MG TABS 521636 HYDROCODONE-ACETAMINOPHEN Inactive TESSALON PERLES 100 MG CAP 1 to 2 tablets by mouth 3 times daily as needed for cough TESSALON PERLES 100 MG CAP 693126 BENZONATATE Inactive CHANTIX STARTING MONTH EARNEST 0.5 [...] Pain 2015 DICLOFENAC SODIUM 50 MG TBEC 359423 DICLOFENAC SODIUM Inactive TOPAMAX 50 MG ORAL TABS 1 tab twice daily TOPAMAX 50 MG ORAL TABS 644195 TOPIRAMATE Inactive VIIBRYD 10 MG ORAL TABS Take 1 tablet once a day VIIBRYD 10 MG ORAL TABS VILAZODONE HCL Inactive LEVOFLOXACIN 500 MG ORAL TABS po daily LEVOFLOXACIN 500 MG ORAL TABS 358170 LEVOFLOXACIN Inactive METHYLPREDNISOLONE 4 MG ORAL TABS po daily METHYLPREDNISOLONE 4 MG ORAL TABS 501940 METHYLPREDNISOLONE Inactive OXYCODONE HCL ER 10 MG ORAL T12A 1/2 tab by mouth every 4 hours prn OXYCODONE HCL ER 10 MG ORAL T12A OXYCODONE HCL Inactive FLAGYL 500 MG TAB 1 tablet by mouth bid FLAGYL 500 MG TAB 627851 METRONIDAZOLE Inactive MONISTAT 7 COMBO PACK WOODROW 100 & 2 MG-% (9GM) VAG KIT 1 applicatorful per vagina q pm x 7 MONISTAT 7 COMBO PACK WOODROW 100 & 2 MG-% (9GM) VAG KIT MICONAZOLE NITRATE Inactive BACTRIM DS 800-160 MG TABS 1 twice a day BACTRIM DS 800-160 MG TABS 567407 SULFAMETHOXAZOLE-TRIMETHOPRIM Inactive TRAMADOL HCL 50 MG TABS 1/2-1 tab TID PRN TRAMADOL HCL 50 MG TABS 319467 TRAMADOL HCL Inactive ABILIFY MAINTENA 400 MG IM SUSR 400mg injection every 26 days ABILIFCielo MAINTENA 400 MG IM SUSR ARIPIPRAZOLE Inactive KLONOPIN 1 MG ORAL TABS 1 tab po TID KLONOPIN 1 MG ORAL TABS 055821 CLONAZEPAM Inactive ADVAIR DISKUS 250-50 MCG/DOSE INH AEPB 1 puff twice a day for asthma ADVAIR DISKUS 250-50 MCG/DOSE INH AEPB FLUTICASONE- SALMETEROL Inactive BENADRYL 25 MG CAP 4 po at bedtime for insomnia BENADRYL 25 MG CAP DIPHENHYDRAMINE HCL Inactive PREDNISONE 20 MG TABS 2 daily for 5 days then 1 daily for 5 days PREDNISONE 20 MG TABS 437605 PREDNISONE Inactive HYDROCODONE-ACETAMINOPHEN 5-325 MG ORAL TABS 1 tab two times a day HYDROCODONE-ACETAMINOPHEN 5-325 MG ORAL TABS 648194 HYDROCODONE-ACETAMINOPHEN Inactive ZITHROMAX Z-EARNEST 250 MG TABS 2 today and then 1 daily for 4 days ZITHROMAX Z-EARNEST 250 MG TABS 6918946 AZITHROMYCIN Inactive GUAIFENESIN-CODEINE 100-10 MG/5ML SYRP 5ml every 4 to 6 hours as needed for cough GUAIFENESIN-CODEINE 100-10 MG/5ML SYRP 888093 GUAIFENESIN-CODEINE Inactive HALOPERIDOL 10 MG ORAL TABS 1 tab q.d HALOPERIDOL 10 MG ORAL TABS 561996 HALOPERIDOL Inactive ASPIRIN 325 MG ORAL TABS 1 tab q.d ASPIRIN 325 MG ORAL TABS 704983 ASPIRIN Inactive FLUTICASONE PROPIONATE 50 MCG/ACT SUSP 2 sprays each nostril daily before bed. FLUTICASONE PROPIONATE 50 MCG/ACT SUSP 3827665 FLUTICASONE PROPIONATE Inactive ZOFRAN 4 MG TABS 1 po q6hr PRN Nausea ZOFRAN 4 MG TABS 949355 ONDANSETRON HCL Inactive KEFLEX 500 MG CAP 1 po qid KEFLEX 500 MG CAP 421869 CEPHALEXIN Inactive ACETAMINOPHEN-CODEINE 120-12 MG/5ML SOLN 5 ml by mouth every 4-6 hours if needed for cough ACETAMINOPHEN-CODEINE 120-12 MG/5ML SOLN 624120 ACETAMINOPHEN-CODEINE Inactive PREDNISONE 20 MG TAB 1 tablet daily x 4 days PREDNISONE 20 MG TAB 309421 PREDNISONE Inactive TROPICAMIDE 0.5 % OPHTH SOLN 1 drop PRN eye spasms TROPICAMIDE 0.5 % OPHTH SOLN 138890 TROPICAMIDE Inactive LEVAQUIN 500 MG TABS 1 daily for infection LEVAQUIN 500 MG TABS 765080 LEVOFLOXACIN Inactive PREDNISONE 10 MG TABS 2 daily for 5 days then 1 daily for 5 days PREDNISONE 10 MG TABS 634873 PREDNISONE Inactive EQ NICOTINE 21 MG/24HR TRANS [...] twice a day CEFDINIR 300 MG CAPS 999801 CEFDINIR Inactive PREDNISONE 20 MG TAB 2 tabs daily for 3 days, 1 tab daily for 3 days, 1/2 tab daily for 2 days PREDNISONE 20 MG TAB 260710 PREDNISONE Inactive BACTRIM DS 800-160 MG TABS 1 po BID x 7 days BACTRIM DS 800-160 MG TABS 19820521 SULFAMETHOXAZOLE-TRIMETHOPRIM Inactive DIFLUCAN 150 MG TABS 1 pill every other day x 2 doses DIFLUCAN 150 MG TABS 132547 FLUCONAZOLE Inactive BACTRIM DS 800-160 MG TABS 1 pill by mouth twice daily BACTRIM DS 800-160 MG TABS 479393 SULFAMETHOXAZOLE-TRIMETHOPRIM Inactive KEFLEX 500 MG CAP 1 po TID x 10 days KEFLEX 500 MG CAP 061849 CEPHALEXIN Inactive Advance Directives Directive Description Start [...] % 11.0-15.0 platelet count 443 THOUSAND/UL 10*3/mm3 520-256 8626/03/01 mean platelet volume 8.2 fL 7.5-12.5 leukocyte [...] % 11.0-15.0 platelet count 349 THOUSAND/UL 10*3/mm3 758-860 2915/04/12 mean platelet volume 8.4 fL 7.5-12.5 Lab [...] 369 10^3/MM^3 10*3/mm3 142-424 Lab Report: Chlamydia/GC APTIMA/[id number] - Lab chlamydia DNA probe NOT DETECTED NOT DETECTED Lab Report: Chlamydia/GC APTIMA/[id number] - Microbiology Neisseria gonorrhoeae DNA probe NOT DETECTED NOT DETECTED Lab Report: Chlamydia/GC APTIMA/[id number], Urinalysis, Complete, with Reflex ... - Lab chlamydia DNA probe NOT DETECTED NOT DETECTED Lab Report: Chlamydia/GC APTIMA/[id number], Urinalysis, Complete, with Reflex ... - Microbiology Neisseria gonorrhoeae DNA probe NOT DETECTED NOT DETECTED Lab Report: Chlamydia/GC APTIMA/[id number], Urinalysis, Complete, with Reflex ... - Urinalysis microalbumin/total urine volume 2 mg/L Units converted. See lab report for original value. microalbumin/creatinine ratio, urine 9 MCG/MG CREAT mg/L <30 Lab Report: Comp. Metabolic Panel - Chemistry sodium, serum 142 mmol/L [id number] 1343/06/08 carbon dioxide, venous blood 27.6 mmol/L 21.0-32.0 potassium, serum 4.0 mmol/L 3.5-5.2 chloride, serum 105 mmol/L 98-107 blood glucose 95 mg/dL 65-110 urea nitrogen, blood 8 mg/dL 7-18 creatinine, serum 0.75 mg/dL 0.55-1.30 alanine aminotransferase (SGPT), serum 49 U/L -78 aspartate aminotransferase (SGOT), serum 28 U/L 15-37 calcium, serum 9.4 mg/dL 8.5-10.1 bilirubin, serum, total 0.30 mg/dL 0.00-1.00 sodium, serum 140 mmol/L 549-476 9805/08/08 carbon dioxide, venous blood 33.7 mmol/L 21.0-32.0 [...] mg/dL Encounters Code Encounter Date Provider Facility CPT-59842 Level 4 Est. Patient 10:49:34 CDT Suzan Boo [facility] [place] CPT-82940 Level 3 Est. Patient 10:00:25 CDT Suzan Boo [facility] [place] CPT-59428 Level 3 Est. Patient 10:29:30 CDT Suzan Boo [facility] [place] CPT-05321 Level 3 Est. Patient 11:04:38 CDT Renzo Jenn Norberto [facility] CPT-91949 Level 3 Est. Patient 11:15:58 TRAILER PARK MANAGER Renzo Barajas Norberto [facility] CPT-63765 Level 3 Est. Patient 15:28:23 TRAILER PARK MANAGER Suzan Boo [facility] [place] CPT-04177 Level 4 Est. Patient 10:20:54 TRAILER PARK MANAGER Suzan Boo [facility] [place] CPT-47364 Level 3 Est. Patient 11:47:37 TRAILER PARK MANAGER Ahmet Carbajal MD [facility]-47668 Level 3 Est. Patient 10:40:11 TRAILER PARK MANAGER Ahmet Carbajal MD [facility]-38425 Level 3 Est. Patient 15:07:06 TRAILER PARK MANAGER Neeraj Collins MD [facility] CPT-19011 Level 4 Est. Patient 14:45:00 TRAILER PARK MANAGER Ahmet Carbajal MD [facility] CPT-26387 Level 3 Est. Patient 13:59:59 CDT Luigi Martínez [facility] [place] CPT-93949 Level 3 Est. Patient 18:18:53 CDT Neeraj Collins MD [facility] CPT-60189 Level 3 Est. Patient 15:50:44 CDT Vishal Hui MD [facility] CPT-48312 Level 3 Est. Patient 11:36:17 CDT Ahmet Carbajal MD [facility] CPT-27206 Level 3 Est. Patient 13:29:16 CDT Vishal Hui MD [facility] CPT-53072 Level 3 Est. Patient 14:27:52 CDT Neeraj Collins MD [facility] CPT-42032 Level 3 Est. Patient 08:56:03 CDT Luigi Martínez [facility] [place] CPT-40940 Level 4 Est. Patient 12:11:48 CDT Fabiola Johnson [facility] [place] CPT-47882 Level 3 New Patient 16:53:37 CDT Albert Caldera MD [facility] CPT-47977 Level 3 Est. Patient 11:25:49 CDT Renzo Thornton DO [facility] CPT-75582 Level 3 Est. Patient 15:22:01 CDT Ahmet Carbajal MD [facility] CPT-50483 Level 4 Est. Patient 09:00:51 TRAILER PARK MANAGER Vishal Hui MD [facility] CPT-38694 Level 3 Est. Patient 11:37:33 TRAILER PARK MANAGER Vishal Hui MD [facility] CPT-01481 Level 3 Est. Patient 08:41:09 TRAILER PARK MANAGER Vishal Hui MD [facility] CPT-57075 Level 4 Est. Patient 10:19:35 TRAILER PARK MANAGER Vishal Hui MD [facility] CPT-99940 Level 3 Est. Patient 13:35:45 CDT Vishal Hui MD [facility] CPT-00067 Level 4 Est. Patient 10:08:37 CDT Vishal Hui MD [facility] CPT-15065 Level 3 Est. Patient 11:22:10 CDT Vishal Hui MD [facility] CPT-24115 Level 3 Est. Patient 11:03:32 CDT Sahara Rodriguez MD, PhD [facility] CPT-62580 Level 3 Est. Patient 09:41:35 CDT Vishal Hui MD [facility]-98126 Level 3 Est. Patient 12:00:41 CDT Neeraj Collins MD [facility] CPT-50441 Level 3 Est. Patient 09:16:24 CDT Vishal Hui MD [facility] CPT-58680 Level 4 Est. Patient 13:59:09 CDT Neeraj Collins MD [facility] CPT-05454 Level 3 Est. Patient 15:19:43 CDT Renzo Thornton [facility] CPT-80052 Level 3 Est. Patient 18:10:26 CDT Sahara Rodriguez MD PhD [facility] CPT-06261 Level 3 Est. Patient 14:49:50 CDT Vishal Hui MD [facility] CPT-58331 Level 4 Est. Patient 18:41:46 CDT Neeraj Collins MD [facility] CPT-19550 Level 4 Est. Patient 09:18:38 TRAILER PARK MANAGER Vishal Hui MD [facility] CPT-77963 Level 3 Est. Patient 14:43:55 TRAILER PARK MANAGER Vishal Hui MD [facility] CPT-02857 Level 3 Est. Patient 15:26:33 TRAILER PARK MANAGER Sahara Rodriguez MD [facility] CPT-98567 Level 3 Est. Patient 10:32:14 TRAILER PARK MANAGER Vishal Hui MD [facility] CPT-17666 Level 3 Est. Patient 15:12:52 TRAILER PARK MANAGER Vishal Hui MD [facility] CPT-42255 Level 4 Est. Patient 09:19:27 CDT Vishal Hui MD [facility] CPT-47941 Level 3 Est. Patient 15:53:00 CDT Renzo Thornton [facility] CPT-44227 Level 3 Est. Patient 15:50:30 CDT Renzo Thornton [facility] CPT-02720 Level 3 Est. Patient 16:55:24 CDT Vishal Hui MD [facility] Procedures Code Procedure Name Date Entry Date Standard Description CPT-76849 Venipuncture Draw Fee 08:41:12 CDT CPT-41472 Abd compl w upright - XRAY USE ONLY 10:27:59 CDT 06/28 CPT-57695 Smoking Cessation counseling 11:15:58 TRA[employer]ER PARK MANAGER CPT-G0439 MC Subsequent Annual Wellness Exam 09:30:58 TRAILER PARK MANAGER CPT-29762 TSH - LAB USE ONLY 08:50:26 TRAILER PARK MANAGER CPT-87872 CBC - LAB USE ONLY 08:50:26 TRAILER PARK MANAGER CPT-29330 Venipuncture Draw Fee 08:50:26 TRAILER PARK MANAGER CPT-40091 Abx/Therapy Injection 17:34:30 TRAILER PARK MANAGER CPT-48504 Nexplanon Removal with Reinsertion 14:09:32 CDT CPT-J7307 Nexplanon (Implant) 14:09:32 CDT CPT-OV Office Visit 14:09:32 CDT CPT-59663 UA w micro - LAB USE ONLY 16:21:13 CDT CPT-91923 Wet Mount - LAB USE ONLY 16:21:13 CDT CPT-54464 First Vx - Ix admin for Medicare patients 14:37:47 CDT CPT-13587 Fluzone Preservative Free Intramuscular Suspension 14:37 :47 CDT CPT-19744 Abx/Therapy Injection 13:54:22 CDT CPT-24285 Abx/Therapy Injection 08:47:09 CDT CPT-58527 Abx/Therapy Injection 13:29:56 CDT CPT-34685 Abx/Therapy Injection 08:36:16 CDT CPT-36207 Wet Mount - LAB USE ONLY 17:44:58 CDT CPT-62280 UA w micro - LAB USE ONLY 17:44:58 CDT CPT-46514 CMP - LAB USE ONLY 17:44:58 CDT CPT-44960 Venipuncture Draw Fee 17:44:58 CDT CPT-17244 Cervical Min 4V - XRAY USE ONLY 09:01:40 CDT CPT-17195 Chest 2V Frontal and Lat - XRAY USE ONLY 11:06:31 CDT CPT-38258 EKG Trac and Interp - XRAY USE ONLY 11:31:43 CDT 08/26 CPT-J3420 Vitamin B12 1000mcg (Cyanocobalamin) 08:10:26 TRAILER PARK MANAGER 04/12 CPT-69260 Abx/Therapy Injection 08:10:26 TRAILER PARK MANAGER CPT-G0438 Initial Annual Wellness Exam 19:01:01 TRAILER PARK MANAGER CPT-J3420 Vitamin B12 1000mcg (Cyanocobalamin) 16:57:46 CDT 08/14 CPT-93881 Recombivax HB Injection Suspension 5 MCG/0.5ML 08:37:50 TRAILER PARK MANAGER CPT-17360 Immunization Single Admin 08:37:50 TRAILER PARK MANAGER CPT-J3420 Vitamin B12 1000mcg (Cyanocobalamin) 08:32:16 TRAILER PARK MANAGER 03/11 CPT-81198 Abx/Therapy Injection 08:32:16 TRAILER PARK MANAGER CPT-79704 Chest 2V Frontal and Lat 11:46:38 TRAILER PARK MANAGER CPT-31293 Venipuncture Draw Fee 09:12:45 TRAILER PARK MANAGER CPT-J3420 Vitamin B12 1000mcg (Cyanocobalamin) 08:50:15 TRAILER PARK MANAGER 02/08 CPT-86352 Abx/Therapy Injection 08:50:15 TRAILER PARK MANAGER CPT-Cryo Cryotherapy 10:19:35 TRAILER PARK MANAGER CPT-000 Give Appropriate Flu Vaccine 09:22:16 CDT CPT-J3420 Vitamin B12 1000mcg (Cyanocobalamin) 19:08:57 CDT 01/11 CPT-66686 Abx/Therapy Injection 19:08:57 CDT CPT-J3420 Vitamin B12 1000mcg (Cyanocobalamin) 08:19:08 CDT 12/11 CPT-63135 Abx/Therapy Injection 08:19:08 CDT CPT-J3420 Vitamin B12 1000mcg (Cyanocobalamin) 14:48:00 CDT 11/09 CPT-45027 Abx/Therapy Injection 14:47:59 CDT CPT-J3420 Vitamin B12 1000mcg (Cyanocobalamin) 08:34:04 CDT 10/09 CPT-85055 Abx/Therapy Injection 08:34:04 CDT CPT-J3420 Vitamin B12 1000mcg (Cyanocobalamin) 09:18:52 CDT 09/11 CPT-81114 Abx/Therapy Injection 09:18:52 CDT CPT-J3420 Vitamin B12 1000mcg (Cyanocobalamin) 08:35:44 CDT 09/04 CPT-42938 Abx/Therapy Injection 08:35:44 CDT CPT-79130 Immunization Single Admin 11:07:16 CDT CPT-55305 Hepatitis B adult IM 11:07:16 CDT CPT-J3420 Vitamin B12 1000mcg (Cyanocobalamin) 11:00:49 CDT 08/28 CPT-J1040 Depo Medrol 80 mg (Methyl Prednisolone Acetate) 11:00: 49 CDT CPT-89855 Abx/Therapy Injection 11:00:49 CDT CPT-J1040 Depo Medrol 80 mg (Methyl Prednisolone Acetate) 09:16: 23 CDT CPT-J3420 Vitamin B12 1000mcg (Cyanocobalamin) 08:27:05 CDT 08/20 CPT-41111 Abx/Therapy Injection 08:27:05 CDT CPT-19513 Recombivax HB Injection Suspension 5 MCG/0.5ML 10:00:41 CDT CPT-03082 Administration single or combination vaccine inc oral 10 :00:41 CDT CPT-79758 Sono transvag pelvis non OB uterus ovaries cervix 16:36: 57 CDT CPT-90945 LS spine comp w obliq 09:50:55 TRAILER PARK MANAGER CPT-74088 Abd compl w upright 09:50:55 TRAILER PARK MANAGER CPT-J1100 Decadron 4mg (Dexamethasone) 15:51:24 TRAILER PARK MANAGER CPT-J1030 Depo Medrol 40 mg (Methyl Prednisolone Acetate) 15:51: 24 TRAILER PARK MANAGER CPT-31914 Abx/Therapy Injection 15:51:24 TRAILER PARK MANAGER CPT-J1100 Decadron 4mg (Dexamethasone) 15:26:33 TRAILER PARK MANAGER CPT-J1030 Depo Medrol 40 mg (Methyl Prednisolone Acetate) 15:26: 33 TRAILER PARK MANAGER CPT-03315 Sono retroperitoneal complete kidneys and bladder 17:15: 30 CDT CPT-29984 Abd compl w upright 16:09:25 CDT CPT-J1100 Decadron 8mg (Dexamethasone) 17:07:57 CDT CPT-09436 Abx/Therapy Injection 17:07:57 CDT CPT-J1100 Decadron 8mg (Dexamethasone) 16:55:24 CDT CPT-83104 Chest 2V Frontal and Lat 16:32:44 CDT
--- OUTSIDE RECORDS SUMMARY | 2016-11-05 01:17 | XMS REPORT | Clinical Summary ---
Author Author Admin, Dereck Organization [facility] Address Unknown Phone Unavailable Allergies, Adverse Reactions, [...] sites Morbid obesity 278.01 Active Juliet Kimbrough STRATEGY PLANNING CONSULTANT Morbid obesity 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 Active Juliet Kimbrough STRATEGY PLANNING CONSULTANT Dependence on other enabling machines and devices [...] Shortness of breath 786.05 Active Fabiola Johnson STRATEGY PLANNING CONSULTANT Shortness of breath Nocturnal hypoxia 799.02 Active Fabiola Johnson STRATEGY PLANNING CONSULTANT Hypoxemia Neck pain 723.1 Active Jioral Martínez STRATEGY PLANNING CONSULTANT Cervicalgia Anxiety Disorder ICD-300.00 Inactive Vishal Hui [...] each nostril daily before bed. FLUTICASONE PROPIONATE 90043838465 Active Fabiola Johnson APRN Active VERAPAMIL HCL ER 120 MG ORAL CR-TABS 1 tab po daily for blood pressure 09/27 VERAPAMIL HCL 20029291984 Active Fabiola Johnson APRN Active ADZENYS XR-ODT 6.3 MG ORAL TBED 1 tab po daily for ADHD AMPHETAMINE 82873803971 Active Fabiola Johnson APRN Active BENADRYL 25 MG CAP 4 po at bedtime for insomnia DIPHENHYDRAMINE HCL 63650252758 Active Fabiola Johnson APRN Active KLONOPIN 1 MG ORAL TABS 1 tab po TID CLONAZEPAM 74271025817 Active Fabiola Johnson APRN Active VALIUM 5 MG TAB Take 1-2 tablets daily DIAZEPAM 38661566324 No Longer Active Fabiola Johnson APRN Active METOPROLOL TARTRATE 25 MG ORAL TABS 1/2 tablet twice daily for heart rate and blood pressure METOPROLOL TARTRATE 82826064250 No Longer Active Fabiola Johnson APRN Active MIRALAX ORAL POWD 17GMS DAILY IN WATER POLYETHYLENE GLYCOL 3350 52775006819 Active Vishal Hui MD Active VIIBRYD 10 MG ORAL TABS Take 1 tablet once a day VILAZODONE HCL 23187175575 Active Ahmet Carbajal MD Active DICLOFENAC POTASSIUM TABS Take 1 tablet twice a day (pt. is not sure of the dose.) DICLOFENAC POTASSIUM TABS 17773019771 Active Ahmet Carbajal MD Active MIRALAX PACK 1 po qd PRN Constipation POLYETHYLENE GLYCOL 3350 38045167080 No Longer Active Ahmet Carbajal MD Active MINIPRESS 2 MG CAPS 4 cap po at night PRAZOSIN HCL 85147990300 No Longer Active Ahmet Carbajal MD Active PIROXICAM 20 MG CAPS 1 cap po qd PRN Pain PIROXICAM 81190628496 No Longer Active Ahmet Carbajal MD Active TRAMADOL HCL 50 MG TABS 1-2 po TID PRN Pain TRAMADOL HCL 65141667411 No Longer Active Ahmet Carbajal MD Active METOPROLOL TARTRATE 50 MG TAB 1 po bid METOPROLOL TARTRATE 76385840563 No Longer Active Ahmet Carbajal MD Active ABILIFY 15 MG ORAL TABS 1 tab daily ARIPIPRAZOLE 14512723606 No Longer Active Ahmet Carbajal MD Active PROZAC 20 MG ORAL CAPS 1 tab daily FLUOXETINE HCL 50709605374 No Longer Active Ahmet Carbajal MD Active AMBIEN 5 MG ORAL TABS 1 tab at bedtime ZOLPIDEM TARTRATE 45164401378 No Longer Active Ahmet Carbajal MD Active PREDNISONE 20 MG TAB 2 tabs daily for 4 days, 1 tab daily for 4 days, 1/2 tab daily for 4 days PREDNISONE 39920700118 No Longer Active Ahmet Carbajal MD Active KEFLEX 500 MG CAP 1 po TID x 10 days CEPHALEXIN 95983801123 No Longer Active Vishal Hui MD Active ABILIFY MAINTENA 400 MG IM SUSR Injection once per month ARIPIPRAZOLE 95587814796 Active Juliet Kimbrough APRN Active IMITREX 50 MG ORAL TABS 1/2 tab every 6 hours prn SUMATRIPTAN SUCCINATE 93717246066 Active Jillina Mauircio NORIEGA Active TOPAMAX 50 MG ORAL TABS 1 tab twice daily TOPIRAMATE 32712815015 Active Vishal Hui MD Active SAPHRIS 5 MG SUBL 1 po bid ASENAPINE MALEATE 97284042633 No Longer Active Luigi Martínez APRN Active LATUDA 80 MG TABS Take one by mouth daily LURASIDONE HCL 18822055659 No Longer Active Luigi Martínez APRN Active AMLODIPINE BESYLATE 5 MG TABS 1 tablet by mouth daily AMLODIPINE BESYLATE 94091912926 No Longer Active Luigi Martínez APRN Active AMITRIPTYLINE HCL 100 MG TAB one at hs AMITRIPTYLINE HCL 24702805649 No Longer Active Vishal Hui MD Active TRAZODONE HCL 100 MG TAB take 1 at bedtime TRAZODONE HCL 36699330032 No Longer Active Vishal Hui MD Active VYVANSE 40 MG CAPS 1 daily, LISDEXAMFETAMINE DIMESYLATE 59965297566 No Longer Active Vishal Hui MD Active IBUPROFEN 600 MG TAB 1 po TID PRN IBUPROFEN 54011301319 No Longer Active Vishal Hui MD Active PROZAC 20 MG CAP Take one by mouth daily FLUOXETINE HCL 74619148443 No Longer Active Vishal Hui MD Active ZOFRAN 4 MG TABS 1 po q6hr PRN Nausea ONDANSETRON HCL Active Vishal Hui MD Active BACTRIM DS 800-160 MG TABS 1 pill by mouth twice daily SULFAMETHOXAZOLE-TRIMETHOPRIM 86752364823 No Longer Active Sahara Rodriguez MD PhD Active DIFLUCAN 150 MG TAB 1 tablet by mouth daily FLUCONAZOLE 74447542161 No Longer Active Vishal Hui MD Active TIZANIDINE HCL 4 MG TABS 1 po q6hr PRN Muscle Spasm/Back Pain TIZANIDINE HCL 62170956332 Active Vishal Hui MD Active CLINDAMYCIN HCL 150 MG CAPS 1 four times a day CLINDAMYCIN HCL 77402863662 No Longer Active Neeraj Collins MD Active KEFLEX 500 MG ORAL CAPS 1 cap QID by mouth CEPHALEXIN 76190459179 No Longer Active Neeraj Collins MD Active DIFLUCAN 150 MG TABS 1 pill every other day x 2 doses FLUCONAZOLE 42160984905 No Longer Active Sahara Rodriguez MD PhD Active MELATONIN 3 MG CAPS 2 po q hs MELATONIN 34376003008 No Longer Active Sahara Rodriguez MD PhD Active MULTIVITAMINS CAPS Take one by mouth daily MULTIPLE VITAMIN 91684244608 No Longer Active Sahara Rodriguez MD PhD Active BACTRIM DS 800-160 MG TAB 1 tab by mouth twice daily TRIMETHOPRIM-SULFAMETHOXAZOLE 95908722738 No Longer Active Sahara Rodriguez MD PhD Active [facility] PROBIOTIC ORAL CHEW 2 daily po PROBIOTIC PRODUCT 11464613093 No Longer Active Sahara Rodriguez MD PhD Active BACTRIM DS 800-160 MG TABS 1 po BID x 7 days SULFAMETHOXAZOLE-TRIMETHOPRIM 72526653234 No Longer Active Vishal Hui MD Active CHANTIX STARTING MONTH EARNEST 0.5 MG X 11 & 1 MG X 42 TABS 0.5mg daily for 3 days , then 0.5mg BID for 4 days, then 1mg BID VARENICLINE TARTRATE 57181471467 No Longer Active TAMARA Gray Active VERAPAMIL HCL CR 120 MG TAB CR 1 po bid VERAPAMIL HCL 07102587725 No Longer Active Vishal Hui MD Active METOPROLOL SUCCINATE 50 MG TB24 1 tablet by mouth daily METOPROLOL SUCCINATE 89218511369 No Longer Active Vishal Hui MD Active SAPHRIS 10 MG SUBL 1 tab po bid ASENAPINE MALEATE 83593350981 No Longer Active Vishal Hui MD Active LISINOPRIL 20 MG TABS 1 tab po qd LISINOPRIL 99818362746 No Longer Active Vishal Hui MD Active LATUDA 20 MG TABS Take one by mouth daily LURASIDONE HCL 54356311888 No Longer Active Vishal Hui MD Active TRAZODONE HCL 50 MG TABS 1/2 tab po qd prn for anxiety TRAZODONE HCL 24466727050 No Longer Active Vishal Hui MD Active OMEPRAZOLE 20 MG TBEC 1 po q a.m. 30min prior to first food intake OMEPRAZOLE 41009066656 Active Vishal Hui MD Active RANITIDINE HCL 150 MG CAPS 1 twice a day RANITIDINE HCL 62034680702 Active Luigi Swensonlebron NORIEGA Active LINZESS 290 MCG CAPS Take one by mouth daily LINACLOTIDE 00313067760 No Longer Active Vishal Hui MD Active SAPHRIS 5 MG SUBL 1 tab po qd ASENAPINE MALEATE 07423143695 No Longer Active Vishal Hui MD Active ZALEPLON 10 MG CAPS 1 cap po every other night ZALEPLON 27383911211 No Longer Active Vishal Hui MD Active LYRICA 50 MG CAPS 1 tab po TID PREGABALIN 26301772706 No Longer Active Vishal Hui MD Active LORATADINE 10 MG TABS 1 tab po qd LORATADINE 52086282579 No Longer Active Vishal Hui MD Active VERAPAMIL HCL ER 180 MG CR-TABS 1 tab po bid VERAPAMIL HCL 64287725138 No Longer Active Vishal Hui MD Active MIRALAX POWD 1 capfull once daily POLYETHYLENE GLYCOL 3350 68911941240 No Longer Active Vishal Hui MD Active PREDNISONE 20 MG TABS 1 tab po qd PREDNISONE 67779124547 No Longer Active Renzo Thornton DO Active LEVOFLOXACIN 500 MG TABS 1 tab po qd LEVOFLOXACIN 75039568329 No Longer Active Renzo Thornton DO Active BUSPIRONE HCL 15 MG TABS 1 tab po TID BUSPIRONE HCL 45284835206 No Longer Active Renzo Thornton DO Active BENZTROPINE MESYLATE 1 MG TABS 1 tab po qd BENZTROPINE MESYLATE 35942699381 No Longer Active Renzo Thornton DO Active ATENOLOL 25 MG TABS 1 tab po qd ATENOLOL 44359537697 No Longer Active Renzo Thornton DO Active ESCITALOPRAM OXALATE 20 MG TABS 1 tab po qd ESCITALOPRAM OXALATE 78323277348 No Longer Active Renzo Thornton DO Active ADVAIR DISKUS 250-50 MCG/DOSE AEPB 1 puff BID FLUTICASONE-SALMETEROL 70415852925 No Longer Active Renzo Thornton DO Active PREDNISONE 20 MG TAB 2 tabs daily for 3 days, 1 tab daily for 3 days, 1/2 tab daily for 2 days PREDNISONE 40302468114 No Longer Active Vishal Hui MD Active CEFDINIR 300 MG CAPS by mouth twice a day CEFDINIR 14004853605 No Longer Active Vishal Hui MD Active LANSOPRAZOLE 30 MG CPDR 1 cap po qd LANSOPRAZOLE 87718604169 No Longer Active Vishal Hui MD Active BACLOFEN 20 MG TABS 1 tab po tid BACLOFEN 36796705823 No Longer Active Vishal Hui MD Active ADVAIR DISKUS 250-50 MCG/DOSE AEPB 1 puff BID ADVAIR DISKUS 250-50 MCG/DOSE AEPB FLUTICASONE-SALMETEROL Inactive ESCITALOPRAM OXALATE 20 MG TABS 1 tab po qd ESCITALOPRAM OXALATE 20 MG TABS 116792 ESCITALOPRAM OXALATE Inactive ATENOLOL 25 MG TABS 1 tab po qd ATENOLOL 25 MG TABS 356965 ATENOLOL Inactive BENZTROPINE MESYLATE 1 MG TABS 1 tab po qd BENZTROPINE MESYLATE 1 MG TABS 554461 BENZTROPINE MESYLATE Inactive BUSPIRONE HCL 15 MG TABS 1 tab po TID BUSPIRONE HCL 15 MG TABS 390599 BUSPIRONE HCL Inactive LEVOFLOXACIN 500 MG TABS 1 tab po qd LEVOFLOXACIN 500 MG TABS 280021 LEVOFLOXACIN Inactive PREDNISONE 20 MG TABS 1 tab po qd PREDNISONE 20 MG TABS 323085 PREDNISONE Inactive MIRALAX POWD 1 capfull once daily MIRALAX POWD 334969 POLYETHYLENE GLYCOL 3350 Inactive VERAPAMIL HCL ER 180 MG CR-TABS 1 tab po bid VERAPAMIL HCL ER 180 MG CR-TABS VERAPAMIL HCL Inactive LORATADINE 10 MG TABS 1 tab po qd LORATADINE 10 MG TABS 532400 LORATADINE Inactive LYRICA 50 MG CAPS 1 tab po TID LYRICA 50 MG CAPS PREGABALIN Inactive ZALEPLON 10 MG CAPS 1 cap po every other night ZALEPLON 10 MG CAPS 086196 ZALEPLON Inactive SAPHRIS 5 MG SUBL 1 tab po qd SAPHRIS 5 MG SUBL ASENAPINE MALEATE Inactive TRAZODONE HCL 50 MG TABS 1/2 tab po qd prn for anxiety TRAZODONE HCL 50 MG TABS 608966 TRAZODONE HCL Inactive LATUDA 20 MG TABS Take one by mouth daily LATUDA 20 MG TABS LURASIDONE HCL Inactive LISINOPRIL 20 MG TABS 1 tab po qd LISINOPRIL 20 MG TABS 374192 LISINOPRIL Inactive SAPHRIS 10 MG SUBL 1 [...] twice daily BACTRIM DS 800-160 MG TAB 195926 TRIMETHOPRIM-SULFAMETHOXAZOLE Inactive MULTIVITAMINS CAPS Take one by mouth daily MULTIVITAMINS CAPS MULTIPLE VITAMIN Inactive MELATONIN 3 MG CAPS 2 po q hs MELATONIN 3 MG CAPS 103856 MELATONIN Inactive KEFLEX 500 MG ORAL CAPS 1 cap QID by mouth KEFLEX 500 MG ORAL CAPS 375047 CEPHALEXIN Inactive CLINDAMYCIN HCL 150 MG CAPS 1 four times a day CLINDAMYCIN HCL 150 MG CAPS 370181 CLINDAMYCIN HCL Inactive DIFLUCAN 150 MG TAB 1 tablet by mouth daily DIFLUCAN 150 MG TAB 993984 FLUCONAZOLE Inactive PROZAC 20 MG CAP Take one by mouth daily PROZAC 20 MG CAP 685971 FLUOXETINE HCL Inactive IBUPROFEN 600 MG TAB 1 po TID PRN IBUPROFEN 600 MG TAB 715778 IBUPROFEN Inactive VYVANSE 40 MG CAPS 1 daily, VYVANSE 40 MG CAPS LISDEXAMFETAMINE DIMESYLATE Inactive TRAZODONE HCL 100 MG TAB take 1 at bedtime TRAZODONE HCL 100 MG TAB 938984 TRAZODONE HCL Inactive AMITRIPTYLINE HCL 100 MG TAB one at hs AMITRIPTYLINE HCL 100 MG TAB 337495 AMITRIPTYLINE HCL Inactive AMLODIPINE BESYLATE 5 MG TABS 1 tablet by mouth daily AMLODIPINE BESYLATE 5 MG TABS 820009 AMLODIPINE BESYLATE Inactive LATUDA 80 MG TABS Take one by mouth daily LATUDA 80 MG TABS LURASIDONE HCL Inactive SAPHRIS 5 MG SUBL 1 po bid SAPHRIS 5 MG SUBL ASENAPINE MALEATE Inactive PREDNISONE 20 MG TAB 2 tabs daily for 4 days, 1 tab daily for 4 days, 1/2 tab daily for 4 days PREDNISONE 20 MG TAB 708518 PREDNISONE Inactive AMBIEN 5 MG ORAL TABS 1 tab at bedtime AMBIEN 5 MG ORAL TABS 663969 ZOLPIDEM TARTRATE Inactive PROZAC 20 MG ORAL CAPS 1 tab daily PROZAC 20 MG ORAL CAPS 391842 FLUOXETINE HCL Inactive ABILIFY 15 MG ORAL TABS 1 tab daily ABILIFY 15 MG ORAL TABS 220116 ARIPIPRAZOLE Inactive METOPROLOL TARTRATE 50 MG TAB 1 po bid METOPROLOL TARTRATE 50 MG TAB 578795 METOPROLOL TARTRATE Inactive TRAMADOL HCL 50 MG TABS 1-2 po TID PRN Pain TRAMADOL HCL 50 MG TABS 834942 TRAMADOL HCL Inactive PIROXICAM 20 MG CAPS 1 cap po qd PRN Pain PIROXICAM 20 MG CAPS 232499 PIROXICAM Inactive MINIPRESS 2 MG CAPS 4 cap po at night MINIPRESS 2 MG CAPS 642877 PRAZOSIN HCL Inactive MIRALAX PACK 1 po qd PRN Constipation MIRALAX PACK 381039 POLYETHYLENE GLYCOL 3350 Inactive METOPROLOL TARTRATE 25 MG ORAL TABS 1/2 tablet twice daily for heart rate and blood pressure METOPROLOL TARTRATE 25 MG ORAL TABS 157508 METOPROLOL TARTRATE Inactive VALIUM 5 MG TAB Take 1-2 tablets daily VALIUM 5 MG TAB 430621 DIAZEPAM Inactive CEFDINIR 300 MG CAPS by mouth twice a day CEFDINIR 300 MG CAPS 836954 CEFDINIR Inactive PREDNISONE 20 MG TAB 2 tabs daily for 3 days, 1 tab daily for 3 days, 1/2 tab daily for 2 days PREDNISONE 20 MG TAB 253190 PREDNISONE Inactive BACTRIM DS 800-160 MG TABS 1 po BID x 7 days BACTRIM DS 800-160 MG TABS 19820521 SULFAMETHOXAZOLE-TRIMETHOPRIM Inactive DIFLUCAN 150 MG TABS 1 pill every other day x 2 doses DIFLUCAN 150 MG TABS 974429 FLUCONAZOLE Inactive BACTRIM DS 800-160 MG TABS 1 pill by mouth twice daily BACTRIM DS 800-160 MG TABS 19820521 SULFAMETHOXAZOLE-TRIMETHOPRIM Inactive KEFLEX 500 MG CAP 1 po TID x 10 days KEFLEX 500 MG CAP 436956 CEPHALEXIN Inactive Advance Directives Directive Description Start [...] % 11.6-14.8 platelet count 394 10^3/MM^3 10*3/mm3 192-501 2382/01/11 leukocyte count, blood 13.8 10^3/MM^3 10*3/mm3 4.6-10.2 [...] Panel - Chemistry sodium, serum 139 mmol/L 220-406 4462/12/03 carbon dioxide, venous blood 28.5 mmol/L 21.0-32.0 [...] 5.5 % 4.3-6.0 cholesterol, serum 159 mg/dL 071-355 4991/12/03 triglyceride, serum, fasting 118 mg/dL 30-200 HDL [...] Panel - Chemistry sodium, serum 139 mmol/L 927-150 3311/12/22 carbon dioxide, venous blood 26.8 mmol/L 21.0-32.0 potassium, serum 4.2 mmol/L 3.5-5.2 chloride, serum 103 mmol/L 98-107 blood glucose 115 mg/dL 65-110 urea nitrogen, blood 20 mg/dL 7-18 creatinine, serum 0.90 mg/dL 0.55-1.30 alanine aminotransferase (SGPT), serum 38 U/L -78 aspartate aminotransferase (SGOT), serum 19 U/L 15-37 calcium, serum 8.6 mg/dL 8.5-10.1 bilirubin, serum, total 0.30 mg/dL 0.00-1.00 sodium, serum 139 mmol/L 697-661 3044/01/11 carbon dioxide, venous blood 26.6 mmol/L 21.0-32.0 potassium, serum 4.1 mmol/L 3.5-5.2 chloride, serum 100 mmol/L 98-107 blood glucose 86 mg/dL 65-110 urea nitrogen, blood 16 mg/dL 7-18 creatinine, serum 1.00 mg/dL 0.55-1.30 alanine aminotransferase (SGPT), serum 48 U/L -78 aspartate aminotransferase (SGOT), serum 17 U/L 15-37 calcium, serum 9.1 mg/dL 8.5-10.1 bilirubin, serum, total 0.40 mg/dL 0.00-1.00 sodium, serum 142 mmol/L 672-744 4950/06/08 carbon dioxide, venous blood 27.6 mmol/L 21.0-32.0 [...] Rate - Chemistry sodium, serum 139 mmol/L 993-291 1263/12/11 carbon dioxide, venous blood 25.4 mmol/L 21.0-32.0 [...] mg/dL Encounters Code Encounter Date Provider Facility CPT-47140 Level 3 Est. Patient 08:56:03 CDT Luigi Martínez [facility] CPT-58712 Level 4 Est. Patient 12:11:48 CDT Fabiola Johnson [facility] CPT-53649 Level 3 New Patient 16:53:37 CDT Albert Caldera MD [facility] CPT-67856 Level 3 Est. Patient 11:25:49 CDT Renzo Thornton DO [facility] CPT-09993 Level 3 Est. Patient 15:22:01 CDT Ahmet Carbajal MD [facility] CPT-89711 Level 4 Est. Patient 09:00:51 HEEL VARNISHER Vishal Hui MD [facility] CPT-06610 Level 3 Est. Patient 11:37:33 HEEL VARNISHER Vishal Hui MD [facility] CPT-52322 Level 3 Est. Patient 08:41:09 HEEL VARNISHER Vishal Hui MD [facility] CPT-61146 Level 4 Est. Patient 10:19:35 HEEL VARNISHER Vishal Hui MD [facility] CPT-57806 Level 3 Est. Patient 13:35:45 CDT Vishal Hui MD [facility] CPT-63723 Level 4 Est. Patient 10:08:37 CDT Vishal Hui MD [facility] CPT-94785 Level 3 Est. Patient 11:22:10 CDT Vishal Hui MD [facility] CPT-73227 Level 3 Est. Patient 11:03:32 CDT Sahara Rodriguez MD PhD [facility] CPT-58778 Level 3 Est. Patient 09:41:35 CDT Vishal Hui MD [facility] CPT-56538 Level 3 Est. Patient 12:00:41 CDT Neeraj Collins MD [facility] CPT-90122 Level 3 Est. Patient 09:16:24 CDT Vishal Hui MD [facility] CPT-81174 Level 4 Est. Patient 13:59:09 CDT Neeraj Collins MD [facility] CPT-88317 Level 3 Est. Patient 15:19:43 CDT Renzo Thornton DO [facility] CPT-63343 Level 3 Est. Patient 18:10:26 CDT Sahara Rodriguez MD [facility] [id number] Level 3 Est. Patient 14:49:50 CDT Vishal Hui MD [facility] CPT-27388 Level 4 Est. Patient 18:41:46 CDT Neeraj Collins MD [facility] CPT-64078 Level 4 Est. Patient 09:18:38 HEEL VARNISHER Vishal Hui MD [facility] CPT-08580 Level 3 Est. Patient 14:43:55 HEEL VARNISHER Vishal Hui MD [facility] CPT-78206 Level 3 Est. Patient 15:26:33 HEEL VARNISHER Sahara Rodriguez MD PhD [facility] CPT-64639 Level 3 Est. Patient 10:32:14 HEEL VARNISHER Vishal Hui MD [facility] CPT-87447 Level 3 Est. Patient 15:12:52 HEEL VARNISHER Vishal Hui MD [facility] CPT-00869 Level 4 Est. Patient 09:19:27 CDT Vishal Hui MD [facility] CPT-27157 Level 3 Est. Patient 15:53:00 CDT Renzo Thornton DO [facility] CPT-80305 Level 3 Est. Patient 15:50:30 CDT Renzo Thornton DO [facility] CPT-03038 Level 3 Est. Patient 16:55:24 CDT Vishal Hui MD [facility] Procedures Code Procedure Name Date Entry Date Standard Description CPT-92273 Cervical Min 4V - XRAY USE ONLY 09:01:40 CDT CPT-66476 Chest 2V Frontal and Lat - XRAY USE ONLY 11:06:31 CDT CPT-89302 EKG Trac and Interp - XRAY USE ONLY 11:31:43 CDT 08/26 CPT-J3420 Vitamin B12 1000mcg (Cyanocobalamin) 08:10:26 HEEL VARNISHER 04/12 CPT-83635 Abx/Therapy Injection 08:10:26 HEEL VARNISHER CPT-G0438 Initial Annual Wellness Exam 19:01:01 HEEL VARNISHER CPT-J3420 Vitamin B12 1000mcg (Cyanocobalamin) 16:57:46 CDT 08/14 CPT-52492 Recombivax HB Injection Suspension 5 MCG/0.5ML 08:37:50 HEEL VARNISHER CPT-42935 Immunization Single Admin 08:37:50 HEEL VARNISHER CPT-J3420 Vitamin B12 1000mcg (Cyanocobalamin) 08:32:16 HEEL VARNISHER 03/11 CPT-47650 Abx/Therapy Injection 08:32:16 HEEL VARNISHER CPT-13847 Chest 2V Frontal and Lat 11:46:38 HEEL VARNISHER CPT-12948 Venipuncture Draw Fee 09:12:45 HEEL VARNISHER CPT-J3420 Vitamin B12 1000mcg (Cyanocobalamin) 08:50:15 HEEL VARNISHER 02/08 CPT-48512 Abx/Therapy Injection 08:50:15 HEEL VARNISHER CPT-Cryo Cryotherapy 10:19:35 HEEL VARNISHER CPT-000 Give Appropriate Flu Vaccine 09:22:16 CDT CPT-J3420 Vitamin B12 1000mcg (Cyanocobalamin) 19:08:57 CDT 01/11 CPT-84104 Abx/Therapy Injection 19:08:57 CDT CPT-J3420 Vitamin B12 1000mcg (Cyanocobalamin) 08:19:08 CDT 12/11 CPT-69491 Abx/Therapy Injection 08:19:08 CDT CPT-J3420 Vitamin B12 1000mcg (Cyanocobalamin) 14:48:00 CDT 11/09 CPT-10540 Abx/Therapy Injection 14:47:59 CDT CPT-J3420 Vitamin B12 1000mcg (Cyanocobalamin) 08:34:04 CDT 10/09 CPT-79861 Abx/Therapy Injection 08:34:04 CDT CPT-J3420 Vitamin B12 1000mcg (Cyanocobalamin) 09:18:52 CDT 09/11 CPT-94144 Abx/Therapy Injection 09:18:52 CDT CPT-J3420 Vitamin B12 1000mcg (Cyanocobalamin) 08:35:44 CDT 09/04 CPT-86323 Abx/Therapy Injection 08:35:44 CDT CPT-19975 Immunization Single Admin 11:07:16 CDT CPT-20661 Hepatitis B adult IM 11:07:16 CDT CPT-J3420 Vitamin B12 1000mcg (Cyanocobalamin) 11:00:49 CDT 08/28 CPT-J1040 Depo Medrol 80 mg (Methyl Prednisolone Acetate) 11:00: 49 CDT CPT-41111 Abx/Therapy Injection 11:00:49 CDT CPT-J1040 Depo Medrol 80 mg (Methyl Prednisolone Acetate) 09:16: 23 CDT CPT-J3420 Vitamin B12 1000mcg (Cyanocobalamin) 08:27:05 CDT 08/20 CPT-69658 Abx/Therapy Injection 08:27:05 CDT CPT-17773 Recombivax HB Injection Suspension 5 MCG/0.5ML 10:00:41 CDT CPT-60790 Administration single or combination vaccine inc oral 10 :00:41 CDT CPT-50358 Sono transvag pelvis non OB uterus ovaries cervix 16:36: 57 CDT CPT-06486 LS spine comp w obliq 09:50:55 HEEL VARNISHER CPT-94978 Abd compl w upright 09:50:55 HEEL VARNISHER CPT-J1100 Decadron 4mg (Dexamethasone) 15:51:24 HEEL VARNISHER CPT-J1030 Depo Medrol 40 mg (Methyl Prednisolone Acetate) 15:51: 24 HEEL VARNISHER CPT-21921 Abx/Therapy Injection 15:51:24 HEEL VARNISHER CPT-J1100 Decadron 4mg (Dexamethasone) 15:26:33 HEEL VARNISHER CPT-J1030 Depo Medrol 40 mg (Methyl Prednisolone Acetate) 15:26: 33 HEEL VARNISHER CPT-25945 Sono retroperitoneal complete kidneys and bladder 17:15: 30 CDT CPT-30296 Abd compl w upright 16:09:25 CDT CPT-J1100 Decadron 8mg (Dexamethasone) 17:07:57 CDT CPT-96411 Abx/Therapy Injection 17:07:57 CDT CPT-J1100 Decadron 8mg (Dexamethasone) 16:55:24 CDT CPT-48192 Chest 2V Frontal and Lat 16:32:44 CDT
--- OUTSIDE RECORDS SUMMARY | 2016-11-05 01:20 | XMS REPORT | Clinical Summary ---
Author Author Admin, E Organization [facility] Address Unknown Phone Unavailable Allergies, Adverse Reactions, [...] breath Nocturnal hypoxia 799.02 Active Fabiola Johnson SOLAR DESIGNER Hypoxemia Neck pain 723.1 Resolved Vishal [...] vagina q pm x 7 MICONAZOLE NITRATE 35191053018 Active Pacollina Johnl SOLAR DESIGNER Active FLAGYL 500 MG TAB 1 tablet by mouth bid METRONIDAZOLE 30516785650 Active Jillina Frazell SOLAR DESIGNER Active TESSALON PERLES 100 MG CAP 1 to 2 tablets by mouth 3 times daily as needed for cough BENZONATATE 92603661851 No Longer Active Tataina Messizell SOLAR DESIGNER Active ABILIFY MAINTENA 400 MG IM SUSR 400mg injection every 26 days ARIPIPRAZOLE 44267138967 Active Silvia Ervinum CERTIFIED ACTIVITIES DIRECTOR Active IMITREX 50 MG ORAL TABS 0.5 po x 1 PRN Headache. May repeat dose x 1 in 2 hours if needed SUMATRIPTAN SUCCINATE 16716809151 Active Vishal Hui MD Active OXYCODONE HCL ER 10 MG ORAL T12A 1/2 tab by mouth every 4 hours prn OXYCODONE HCL 44569441143 Active Neeraj Collins MD Active METHYLPREDNISOLONE 4 MG ORAL TABS po daily METHYLPREDNISOLONE 22412311509 Active Vishal Hui MD Active LEVOFLOXACIN 500 MG ORAL TABS po daily LEVOFLOXACIN 94436311296 Active Vishal Hui MD Active CHANTIX STARTING MONTH EARNEST 0.5 MG X 11 & 1 MG X 42 TABS take as directed 2015 VARENICLINE TARTRATE 97331640098 Active Ahmet Carbajal MD Active CHANTIX 1 MG TABS 1 twice a day to help quit smoking VARENICLINE TARTRATE 56194738463 Active Ahmet Carbajal MD Active HYDROCODONE-ACETAMINOPHEN 5-325 MG TABS 1 to 2 four times a day as needed for pain use until can be seen by specialist HYDROCODONE- ACETAMINOPHEN 80735303594 No Longer Active Vishal Hui MD Active PROAIR HFA 108 (90 BASE) MCG/ACT AERS 2 puffs four times a day as needed 2015 ALBUTEROL SULFATE 29286426419 No Longer Active Vishal Hui MD Active PREDNISONE 20 MG TABS 2 daily for 5 days then 1 daily for 5 days PREDNISONE 66246227412 No Longer Active Vishal Hui MD Active ZITHROMAX Z-EARNEST 250 MG TABS 2 today and then 1 daily for 4 days AZITHROMYCIN 44426797522 No Longer Active Vishal Hui MD Active DICLOFENAC SODIUM 50 MG TBEC 1 tablet by mouth four times daily PRN Pain 2015 DICLOFENAC SODIUM 38245097062 Active Vishal Hui MD Active DICLOFENAC POTASSIUM TABS Take 1 tablet twice a day (pt. is not sure of the dose.) DICLOFENAC POTASSIUM TABS 79303938889 No Longer Active Vishal Hui MD Active VERAPAMIL HCL ER 120 MG ORAL CR-TABS Take 1 tablet by mouth twice a day. VERAPAMIL HCL 34005084066 Active Vishal Hui MD Active FLAGYL 500 MG TAB 1 tablet by mouth bid METRONIDAZOLE 79109990919 No Longer Active Vishal Hui MD Active FLUTICASONE PROPIONATE 50 MCG/ACT SUSP 2 sprays each nostril daily before bed. FLUTICASONE PROPIONATE 33891264722 Active Fabiola Johnson APRN Active ADZENYS XR-ODT 6.3 MG ORAL TBED 1 tab po daily for ADHD AMPHETAMINE 16101014951 Active Fabiola Johnson APRN Active BENADRYL 25 MG CAP 4 po at bedtime for insomnia DIPHENHYDRAMINE HCL 11165115356 Active Fabiola Johnson APRN Active KLONOPIN 1 MG ORAL TABS 1 tab po TID CLONAZEPAM 20322189390 Active Fabiola Johnson APRN Active VALIUM 5 MG TAB Take 1-2 tablets daily DIAZEPAM 84449569958 No Longer Active Fabiola Johnson APRN Active METOPROLOL TARTRATE 25 MG ORAL TABS 1/2 tablet twice daily for heart rate and blood pressure METOPROLOL TARTRATE 02846077107 No Longer Active Fabiola Johnson APRN Active MIRALAX ORAL POWD 17GMS DAILY IN WATER POLYETHYLENE GLYCOL 3350 38298863834 Active Vishal Hui MD Active VIIBRYD 10 MG ORAL TABS Take 1 tablet once a day VILAZODONE HCL 90558618733 Active Ahmet Carbajal MD Active MIRALAX PACK 1 po qd PRN Constipation POLYETHYLENE GLYCOL 3350 80303337492 No Longer Active Ahmet Carbajal MD Active MINIPRESS 2 MG CAPS 4 cap po at night PRAZOSIN HCL 76824321413 No Longer Active Ahmet Carbajal MD Active PIROXICAM 20 MG CAPS 1 cap po qd PRN Pain PIROXICAM 72488579252 No Longer Active Ahmet Carbajal MD Active TRAMADOL HCL 50 MG TABS 1-2 po TID PRN Pain TRAMADOL HCL 95820351741 No Longer Active Ahmet Carbajal MD Active METOPROLOL TARTRATE 50 MG TAB 1 po bid METOPROLOL TARTRATE 72180800181 No Longer Active Ahmet Carbajal MD Active ABILIFY 15 MG ORAL TABS 1 tab daily ARIPIPRAZOLE 07842165964 No Longer Active Ahmet Carbajal MD Active PROZAC 20 MG ORAL CAPS 1 tab daily FLUOXETINE HCL 40716580964 No Longer Active Ahmet Carbajal MD Active AMBIEN 5 MG ORAL TABS 1 tab at bedtime ZOLPIDEM TARTRATE 11228056625 No Longer Active Ahmet Carbajal MD Active PREDNISONE 20 MG TAB 2 tabs daily for 4 days, 1 tab daily for 4 days, 1/2 tab daily for 4 days PREDNISONE 69418367154 No Longer Active Ahmet Carbajal MD Active KEFLEX 500 MG CAP 1 po TID x 10 days CEPHALEXIN 66682285641 No Longer Active Vishal Hui MD Active TOPAMAX 50 MG ORAL TABS 1 tab twice daily TOPIRAMATE 24774156637 Active Vishal Hui MD Active SAPHRIS 5 MG SUBL 1 po bid ASENAPINE MALEATE 28897676982 No Longer Active Luigi Martínez SOLAR DESIGNER Active LATUDA 80 MG TABS Take one by mouth daily LURASIDONE HCL 92380601355 No Longer Active Pacollina Mauricio SOLAR DESIGNER Active AMLODIPINE BESYLATE 5 MG TABS 1 tablet by mouth daily AMLODIPINE BESYLATE 21022803445 No Longer Active Luigi Martínez SOLAR DESIGNER Active AMITRIPTYLINE HCL 100 MG TAB one at hs AMITRIPTYLINE HCL 61111321693 No Longer Active Vishal Hui MD Active TRAZODONE HCL 100 MG TAB take 1 at bedtime TRAZODONE HCL 29906972284 No Longer Active Vishal Hui MD Active VYVANSE 40 MG CAPS 1 daily, LISDEXAMFETAMINE DIMESYLATE 76875805434 No Longer Active Vishal Hui MD Active IBUPROFEN 600 MG TAB 1 po TID PRN IBUPROFEN 20142979571 No Longer Active Vishal Hui MD Active PROZAC 20 MG CAP Take one by mouth daily FLUOXETINE HCL 67563084875 No Longer Active Vishal Hui MD Active ZOFRAN 4 MG TABS 1 po q6hr PRN Nausea ONDANSETRON HCL Active Vishal Hui MD Active BACTRIM DS 800-160 MG TABS 1 pill by mouth twice daily SULFAMETHOXAZOLE-TRIMETHOPRIM 20739524757 No Longer Active Sahara Rodriguez MD PhD Active DIFLUCAN 150 MG TAB 1 tablet by mouth daily FLUCONAZOLE 30302781055 No Longer Active Vishal Hui MD Active TIZANIDINE HCL 4 MG TABS 1 po q6hr PRN Muscle Spasm/Back Pain TIZANIDINE HCL 30474455642 Active Vishal Hui MD Active CLINDAMYCIN HCL 150 MG CAPS 1 four times a day CLINDAMYCIN HCL 22815402850 No Longer Active Neeraj Collins MD Active KEFLEX 500 MG ORAL CAPS 1 cap QID by mouth CEPHALEXIN 50347016988 No Longer Active Neeraj Collins MD Active DIFLUCAN 150 MG TABS 1 pill every other day x 2 doses FLUCONAZOLE 40771293953 No Longer Active Sahara Rodriguez MD PhD Active MELATONIN 3 MG CAPS 2 po q hs MELATONIN 85350715222 No Longer Active Sahara Rodriguez MD PhD Active MULTIVITAMINS CAPS Take one by mouth daily MULTIPLE VITAMIN 30369893693 No Longer Active Sahara Rodriguez MD PhD Active BACTRIM DS 800-160 MG TAB 1 tab by mouth twice daily TRIMETHOPRIM-SULFAMETHOXAZOLE 72475610538 No Longer Active Sahara Rodriguez MD PhD Active [facility] PROBIOTIC ORAL CHEW 2 daily po PROBIOTIC PRODUCT 61368830320 No Longer Active Sahara Rodriguez MD PhD Active BACTRIM DS 800-160 MG TABS 1 po BID x 7 days SULFAMETHOXAZOLE-TRIMETHOPRIM 62580952236 No Longer Active Vishal Hui MD Active CHANTIX STARTING MONTH EARNEST 0.5 MG X 11 & 1 MG X 42 TABS 0.5mg daily for 3 days , then 0.5mg BID for 4 days, then 1mg BID VARENICLINE TARTRATE 53741244647 No Longer Active TAMARA Gray Active VERAPAMIL HCL CR 120 MG TAB CR 1 po bid VERAPAMIL HCL 67290070935 No Longer Active Vishal Hui MD Active METOPROLOL SUCCINATE 50 MG TB24 1 tablet by mouth daily METOPROLOL SUCCINATE 86189400733 No Longer Active Vishal Hui MD Active SAPHRIS 10 MG SUBL 1 tab po bid ASENAPINE MALEATE 90512113925 No Longer Active Vishal Hui MD Active LISINOPRIL 20 MG TABS 1 tab po qd LISINOPRIL 69753595104 No Longer Active Vishal Hui MD Active LATUDA 20 MG TABS Take one by mouth daily LURASIDONE HCL 98901208866 No Longer Active Vishal Hui MD Active TRAZODONE HCL 50 MG TABS 1/2 tab po qd prn for anxiety TRAZODONE HCL 99446719589 No Longer Active Vishal Hui MD Active OMEPRAZOLE 20 MG TBEC 1 po q a.m. 30min prior to first food intake OMEPRAZOLE 35796174865 Active Vishal Hui MD Active RANITIDINE HCL 150 MG CAPS 1 twice a day RANITIDINE HCL 17460123893 Active Jillina Johnl SOLAR DESIGNER Active LINZESS 290 MCG CAPS Take one by mouth daily LINACLOTIDE 14483827544 No Longer Active Vishal Hui MD Active SAPHRIS 5 MG SUBL 1 tab po qd ASENAPINE MALEATE 72345166766 No Longer Active Vishal Hui MD Active ZALEPLON 10 MG CAPS 1 cap po every other night ZALEPLON 31732669743 No Longer Active Vishal Hui MD Active LYRICA 50 MG CAPS 1 tab po TID PREGABALIN 62053796888 No Longer Active Vishal Hui MD Active LORATADINE 10 MG TABS 1 tab po qd LORATADINE 70935725323 No Longer Active Vishal Hui MD Active VERAPAMIL HCL ER 180 MG CR-TABS 1 tab po bid VERAPAMIL HCL 22318552687 No Longer Active Vishal Hui MD Active MIRALAX POWD 1 capfull once daily POLYETHYLENE GLYCOL 3350 12687380907 No Longer Active Vishal Hui MD Active PREDNISONE 20 MG TABS 1 tab po qd PREDNISONE 77257943292 No Longer Active Renzo Thornton DO Active LEVOFLOXACIN 500 MG TABS 1 tab po qd LEVOFLOXACIN 84676532150 No Longer Active Renzo Thornton DO Active BUSPIRONE HCL 15 MG TABS 1 tab po TID BUSPIRONE HCL 45903268477 No Longer Active Renzo Thornton DO Active BENZTROPINE MESYLATE 1 MG TABS 1 tab po qd BENZTROPINE MESYLATE 43940199799 No Longer Active Renzo Thornton DO Active ATENOLOL 25 MG TABS 1 tab po qd ATENOLOL 61680218233 No Longer Active Renzo Thornton DO Active ESCITALOPRAM OXALATE 20 MG TABS 1 tab po qd ESCITALOPRAM OXALATE 98976223201 No Longer Active Renzo Thornton DO Active ADVAIR DISKUS 250-50 MCG/DOSE AEPB 1 puff BID FLUTICASONE-SALMETEROL 57209776353 No Longer Active Renzo Thornton DO Active PREDNISONE 20 MG TAB 2 tabs daily for 3 days, 1 tab daily for 3 days, 1/2 tab daily for 2 days PREDNISONE 77787297443 No Longer Active Vishal Hui MD Active CEFDINIR 300 MG CAPS by mouth twice a day CEFDINIR 76244378270 No Longer Active Vishal Hui MD Active LANSOPRAZOLE 30 MG CPDR 1 cap po qd LANSOPRAZOLE 03341577914 No Longer Active Vishal Hui MD Active BACLOFEN 20 MG TABS 1 tab po tid BACLOFEN 57834484677 No Longer Active Vishal Hui MD Active ADVAIR DISKUS 250-50 MCG/DOSE AEPB 1 puff BID ADVAIR DISKUS 250-50 MCG/DOSE AEPB FLUTICASONE-SALMETEROL Inactive ESCITALOPRAM OXALATE 20 MG TABS 1 tab po qd ESCITALOPRAM OXALATE 20 MG TABS 454211 ESCITALOPRAM OXALATE Inactive ATENOLOL 25 MG TABS 1 tab po qd ATENOLOL 25 MG TABS 016371 ATENOLOL Inactive BENZTROPINE MESYLATE 1 MG TABS 1 tab po qd BENZTROPINE MESYLATE 1 MG TABS 634566 BENZTROPINE MESYLATE Inactive BUSPIRONE HCL 15 MG TABS 1 tab po TID BUSPIRONE HCL 15 MG TABS 300305 BUSPIRONE HCL Inactive LEVOFLOXACIN 500 MG TABS 1 tab po qd LEVOFLOXACIN 500 MG TABS 926105 LEVOFLOXACIN Inactive PREDNISONE 20 MG TABS 1 tab po qd PREDNISONE 20 MG TABS 315810 PREDNISONE Inactive MIRALAX POWD 1 capfull once daily MIRALAX POWD 158370 POLYETHYLENE GLYCOL 3350 Inactive VERAPAMIL HCL ER 180 MG CR-TABS 1 tab po bid VERAPAMIL HCL ER 180 MG CR-TABS VERAPAMIL HCL Inactive LORATADINE 10 MG TABS 1 tab po qd LORATADINE 10 MG TABS 472554 LORATADINE Inactive LYRICA 50 MG CAPS 1 tab po TID LYRICA 50 MG CAPS PREGABALIN Inactive ZALEPLON 10 MG CAPS 1 cap po every other night ZALEPLON 10 MG CAPS 714983 ZALEPLON Inactive SAPHRIS 5 MG SUBL 1 tab po qd SAPHRIS 5 MG SUBL ASENAPINE MALEATE Inactive TRAZODONE HCL 50 MG TABS 1/2 tab po qd prn for anxiety TRAZODONE HCL 50 MG TABS 999011 TRAZODONE HCL Inactive LATUDA 20 MG TABS Take one by mouth daily LATUDA 20 MG TABS LURASIDONE HCL Inactive LISINOPRIL 20 MG TABS 1 tab po qd LISINOPRIL 20 MG TABS 225874 LISINOPRIL Inactive SAPHRIS 10 MG SUBL 1 [...] twice daily BACTRIM DS 800-160 MG TAB 262565 TRIMETHOPRIM-SULFAMETHOXAZOLE Inactive MULTIVITAMINS CAPS Take one by mouth daily MULTIVITAMINS CAPS MULTIPLE VITAMIN Inactive MELATONIN 3 MG CAPS 2 po q hs MELATONIN 3 MG CAPS 19950526 MELATONIN Inactive KEFLEX 500 MG ORAL CAPS 1 cap QID by mouth KEFLEX 500 MG ORAL CAPS 449879 CEPHALEXIN Inactive CLINDAMYCIN HCL 150 MG CAPS 1 four times a day CLINDAMYCIN HCL 150 MG CAPS 128729 CLINDAMYCIN HCL Inactive DIFLUCAN 150 MG TAB 1 tablet by mouth daily DIFLUCAN 150 MG TAB 314164 FLUCONAZOLE Inactive PROZAC 20 MG CAP Take one by mouth daily PROZAC 20 MG CAP 100221 FLUOXETINE HCL Inactive IBUPROFEN 600 MG TAB 1 po TID PRN IBUPROFEN 600 MG TAB 942715 IBUPROFEN Inactive VYVANSE 40 MG CAPS 1 daily, VYVANSE 40 MG CAPS LISDEXAMFETAMINE DIMESYLATE Inactive TRAZODONE HCL 100 MG TAB take 1 at bedtime TRAZODONE HCL 100 MG TAB 492700 TRAZODONE HCL Inactive AMITRIPTYLINE HCL 100 MG TAB one at hs AMITRIPTYLINE HCL 100 MG TAB 544459 AMITRIPTYLINE HCL Inactive AMLODIPINE BESYLATE 5 MG TABS 1 tablet by mouth daily AMLODIPINE BESYLATE 5 MG TABS 273531 AMLODIPINE BESYLATE Inactive LATUDA 80 MG TABS Take one by mouth daily LATUDA 80 MG TABS LURASIDONE HCL Inactive SAPHRIS 5 MG SUBL 1 po bid SAPHRIS 5 MG SUBL ASENAPINE MALEATE Inactive PREDNISONE 20 MG TAB 2 tabs daily for 4 days, 1 tab daily for 4 days, 1/2 tab daily for 4 days PREDNISONE 20 MG TAB 970785 PREDNISONE Inactive AMBIEN 5 MG ORAL TABS 1 tab at bedtime AMBIEN 5 MG ORAL TABS 292944 ZOLPIDEM TARTRATE Inactive PROZAC 20 MG ORAL CAPS 1 tab daily PROZAC 20 MG ORAL CAPS 535731 FLUOXETINE HCL Inactive ABILIFY 15 MG ORAL TABS 1 tab daily ABILIFY 15 MG ORAL TABS 365107 ARIPIPRAZOLE Inactive METOPROLOL TARTRATE 50 MG TAB 1 po bid METOPROLOL TARTRATE 50 MG TAB 273483 METOPROLOL TARTRATE Inactive TRAMADOL HCL 50 MG TABS 1-2 po TID PRN Pain TRAMADOL HCL 50 MG TABS 150264 TRAMADOL HCL Inactive PIROXICAM 20 MG CAPS 1 cap po qd PRN Pain PIROXICAM 20 MG CAPS 732267 PIROXICAM Inactive MINIPRESS 2 MG CAPS 4 cap po at night MINIPRESS 2 MG CAPS 531053 PRAZOSIN HCL Inactive MIRALAX PACK 1 po qd PRN Constipation MIRALAX PACK 618078 POLYETHYLENE GLYCOL 3350 Inactive METOPROLOL TARTRATE 25 MG ORAL TABS 1/2 tablet twice daily for heart rate and blood pressure METOPROLOL TARTRATE 25 MG ORAL TABS 672558 METOPROLOL TARTRATE Inactive VALIUM 5 MG TAB Take 1-2 tablets daily VALIUM 5 MG TAB 555797 DIAZEPAM Inactive FLAGYL 500 MG TAB 1 tablet by mouth bid FLAGYL 500 MG TAB 539739 METRONIDAZOLE Inactive DICLOFENAC POTASSIUM TABS Take 1 tablet twice a day (pt. is not sure of the dose.) DICLOFENAC POTASSIUM TABS DICLOFENAC POTASSIUM TABS Inactive ZITHROMAX Z-EARNEST 250 MG TABS 2 today and then 1 daily for 4 days ZITHROMAX Z-EARNEST 250 MG TABS 4129422 AZITHROMYCIN Inactive PREDNISONE 20 MG TABS 2 daily for 5 days then 1 daily for 5 days PREDNISONE 20 MG TABS 706557 PREDNISONE Inactive PROAIR HFA 108 (90 BASE) MCG/ACT AERS 2 puffs four times a day as needed 2015 PROAIR HFA 108 (90 BASE) MCG/ACT AERS ALBUTEROL SULFATE Inactive HYDROCODONE-ACETAMINOPHEN 5-325 MG TABS 1 to 2 four times a day as needed for pain use until can be seen by specialist HYDROCODONE- ACETAMINOPHEN 5-325 MG TABS 335903 HYDROCODONE-ACETAMINOPHEN Inactive TESSALON PERLES 100 MG CAP 1 to 2 tablets by mouth 3 times daily as needed for cough TESSALON PERLES 100 MG CAP 309226 BENZONATATE Inactive CEFDINIR 300 MG CAPS by mouth twice a day CEFDINIR 300 MG CAPS 021758 CEFDINIR Inactive PREDNISONE 20 MG TAB 2 tabs daily for 3 days, 1 tab daily for 3 days, 1/2 tab daily for 2 days PREDNISONE 20 MG TAB 343921 PREDNISONE Inactive BACTRIM DS 800-160 MG TABS 1 po BID x 7 days BACTRIM DS 800-160 MG TABS 19820521 SULFAMETHOXAZOLE-TRIMETHOPRIM Inactive DIFLUCAN 150 MG TABS 1 pill every other day x 2 doses DIFLUCAN 150 MG TABS 152878 FLUCONAZOLE Inactive BACTRIM DS 800-160 MG TABS 1 pill by mouth twice daily BACTRIM DS 800-160 MG TABS 19820521 SULFAMETHOXAZOLE-TRIMETHOPRIM Inactive KEFLEX 500 MG CAP 1 po TID x 10 days KEFLEX 500 MG CAP 848274 CEPHALEXIN Inactive Advance Directives Directive Description Start [...] % 11.6-14.8 platelet count 394 10^3/MM^3 10*3/mm3 758-133 4796/01/11 leukocyte count, blood 13.8 10^3/MM^3 10*3/mm3 4.6-10.2 [...] Panel - Chemistry sodium, serum 139 mmol/L 635-130 0394/12/03 carbon dioxide, venous blood 28.5 mmol/L 21.0-32.0 [...] 5.5 % 4.3-6.0 cholesterol, serum 159 mg/dL 824-834 7658/12/03 triglyceride, serum, fasting 118 mg/dL 30-200 HDL [...] 362 10^3/MM^3 10*3/mm3 142-424 Lab Report: Chlamydia/GC APTIMA/[id number] - Lab chlamydia DNA probe NOT DETECTED NOT DETECTED Lab Report: Chlamydia/GC APTIMA/[id number] - Microbiology Neisseria gonorrhoeae DNA probe NOT DETECTED NOT DETECTED Lab Report: Comp. Metabolic Panel - Chemistry sodium, serum 140 mmol/L 027-625 1965/08/08 carbon dioxide, venous blood 33.7 mmol/L 21.0-32.0 potassium, serum 5.0 mmol/L 3.5-5.2 chloride, serum 103 mmol/L 98-107 blood glucose 80 mg/dL 65-110 urea nitrogen, blood 13 mg/dL 7-18 creatinine, serum 0.88 mg/dL 0.55-1.30 alanine aminotransferase (SGPT), serum 54 U/L 12-78 aspartate aminotransferase (SGOT), serum 29 U/L 15-37 calcium, serum 9.7 mg/dL 8.5-10.1 bilirubin, serum, total 0.30 mg/dL 0.00-1.00 sodium, serum 139 mmol/L 668-575 0621/12/22 carbon dioxide, venous blood 26.8 mmol/L 21.0-32.0 potassium, serum 4.2 mmol/L 3.5-5.2 chloride, serum 103 mmol/L 98-107 blood glucose 115 mg/dL 65-110 urea nitrogen, blood 20 mg/dL 7-18 creatinine, serum 0.90 mg/dL 0.55-1.30 alanine aminotransferase (SGPT), serum 38 U/L aspartate aminotransferase (SGOT), serum 19 U/L 15-37 calcium, serum 8.6 mg/dL 8.5-10.1 bilirubin, serum, total 0.30 mg/dL 0.00-1.00 sodium, serum 139 mmol/L 531-111 6662/01/11 carbon dioxide, venous blood 26.6 mmol/L 21.0-32.0 potassium, serum 4.1 mmol/L 3.5-5.2 chloride, serum 100 mmol/L 98-107 blood glucose 86 mg/dL 65-110 urea nitrogen, blood 16 mg/dL 7-18 creatinine, serum 1.00 mg/dL 0.55-1.30 alanine aminotransferase (SGPT), serum 48 U/L -78 aspartate aminotransferase (SGOT), serum 17 U/L 15-37 calcium, serum 9.1 mg/dL 8.5-10.1 bilirubin, serum, total 0.40 mg/dL 0.00-1.00 sodium, serum 142 mmol/L 599-403 3941/06/08 carbon dioxide, venous blood 27.6 mmol/L 21.0-32.0 [...] Rate - Chemistry sodium, serum 139 mmol/L 836-225 0497/12/11 carbon dioxide, venous blood 25.4 mmol/L 21.0-32.0 [...] stimulating hormone, serum 5.8 m[iU]/mL Lab Report: MonoStemo UALAMBERTP W/MICRO, AUTO [...] mg/dL Encounters Code Encounter Date Provider Facility CPT-11802 Level 3 Est. Patient 13:59:59 CDT Luigi Martínez [facility] CPT-06416 Level 3 Est. Patient 18:18:53 CDT Neeraj Collins MD [facility] CPT-04675 Level 3 Est. Patient 15:50:44 CDT Vishal Hui MD [facility] CPT-28488 Level 3 Est. Patient 11:36:17 CDT Ahmet Carbajal MD [facility] CPT-23618 Level 3 Est. Patient 13:29:16 CDT Vishal Hui MD [facility] CPT-03628 Level 3 Est. Patient 14:27:52 CDT Neeraj Collins MD [facility] CPT-97916 Level 3 Est. Patient 08:56:03 CDT Luigi Martínez [facility] CPT-79562 Level 4 Est. Patient 12:11:48 CDT Fabiola Johnson [facility] CPT-03080 Level 3 New Patient 16:53:37 CDT Albert Caldera MD [facility] CPT-06319 Level 3 Est. Patient 11:25:49 CDT Renzo Thornton DO [facility] CPT-45816 Level 3 Est. Patient 15:22:01 CDT Ahmet Carbajal MD [facility] CPT-22965 Level 4 Est. Patient 09:00:51 COMMERCIAL TECHNICIAN Vishal Hui MD [facility] CPT-25446 Level 3 Est. Patient 11:37:33 COMMERCIAL TECHNICIAN Vishal Hui MD [facility] CPT-53637 Level 3 Est. Patient 08:41:09 COMMERCIAL TECHNICIAN Vishal Hui MD [facility] CPT-08138 Level 4 Est. Patient 10:19:35 COMMERCIAL TECHNICIAN Vishal Hui MD [facility] CPT-45931 Level 3 Est. Patient 13:35:45 CDT Vishal Hui MD [facility] CPT-52548 Level 4 Est. Patient 10:08:37 CDT Vishal Hui MD [facility] CPT-37437 Level 3 Est. Patient 11:22:10 CDT Vishal Hui MD [facility] CPT-63154 Level 3 Est. Patient 11:03:32 CDT Sahara Rodriguez MD [facility]-28502 Level 3 Est. Patient 09:41:35 CDT Vishal Hui MD [facility] CPT-00330 Level 3 Est. Patient 12:00:41 CDT Neeraj Collins MD [facility]-64634 Level 3 Est. Patient 09:16:24 CDT Vishal Hui MD [facility] CPT-47683 Level 4 Est. Patient 13:59:09 CDT Neeraj Collins MD [facility]-79634 Level 3 Est. Patient 15:19:43 CDT Renzo Thornton DO [facility] CPT-72023 Level 3 Est. Patient 18:10:26 CDT Sahara Rodriguez MD [facility]-10808 Level 3 Est. Patient 14:49:50 CDT Vishal Hui MD [facility] CPT-46680 Level 4 Est. Patient 18:41:46 CDT Neeraj Collins MD [facility] CPT-91574 Level 4 Est. Patient 09:18:38 COMMERCIAL TECHNICIAN Vishal Hui MD [facility] CPT-17168 Level 3 Est. Patient 14:43:55 COMMERCIAL TECHNICIAN Vishal Hui MD [facility] CPT-13988 Level 3 Est. Patient 15:26:33 COMMERCIAL TECHNICIAN Sahara Rodriguez MD PhD [facility]-27720 Level 3 Est. Patient 10:32:14 COMMERCIAL TECHNICIAN Vishal Hui MD [facility] CPT-44338 Level 3 Est. Patient 15:12:52 COMMERCIAL TECHNICIAN Vishal Hui MD [facility] CPT-46183 Level 4 Est. Patient 09:19:27 CDT Vishal Hui MD [facility] CPT-25251 Level 3 Est. Patient 15:53:00 CDT Renzo Thornton [facility] CPT-14027 Level 3 Est. Patient 15:50:30 CDT Renzo Thornton [facility] CPT-34368 Level 3 Est. Patient 16:55:24 CDT Vishal Hui MD [facility] Procedures Code Procedure Name Date Entry Date Standard Description CPT-88620 UA w micro - LAB USE ONLY 16:21:13 CDT CPT-15659 Wet Mount - LAB USE ONLY 16:21:13 CDT CPT-00905 First Vx - Ix admin for Medicare patients 14:37:47 CDT CPT-95240 Fluzone Preservative Free Intramuscular Suspension 14:37 :47 CDT CPT-12913 Abx/Therapy Injection 13:54:22 CDT CPT-53305 Abx/Therapy Injection 08:47:09 CDT CPT-18372 Abx/Therapy Injection 13:29:56 CDT CPT-73967 Abx/Therapy Injection 08:36:16 CDT CPT-88234 Wet Mount - LAB USE ONLY 17:44:58 CDT CPT-49075 UA w micro - LAB USE ONLY 17:44:58 CDT CPT-23983 CMP - LAB USE ONLY 17:44:58 CDT CPT-40248 Venipuncture Draw Fee 17:44:58 CDT CPT-44179 Cervical Min 4V - XRAY USE ONLY 09:01:40 CDT CPT-79484 Chest 2V Frontal and Lat - XRAY USE ONLY 11:06:31 CDT CPT-19391 EKG Trac and Interp - XRAY USE ONLY 11:31:43 CDT 08/26 CPT-J3420 Vitamin B12 1000mcg (Cyanocobalamin) 08:10:26 COMMERCIAL TECHNICIAN 04/12 CPT-16000 Abx/Therapy Injection 08:10:26 COMMERCIAL TECHNICIAN CPT-G0438 Initial Annual Wellness Exam 19:01:01 COMMERCIAL TECHNICIAN CPT-J3420 Vitamin B12 1000mcg (Cyanocobalamin) 16:57:46 CDT 08/14 CPT-94212 Recombivax HB Injection Suspension 5 MCG/0.5ML 08:37:50 COMMERCIAL TECHNICIAN CPT-02715 Immunization Single Admin 08:37:50 COMMERCIAL TECHNICIAN CPT-J3420 Vitamin B12 1000mcg (Cyanocobalamin) 08:32:16 COMMERCIAL TECHNICIAN 03/11 CPT-94030 Abx/Therapy Injection 08:32:16 COMMERCIAL TECHNICIAN CPT-39282 Chest 2V Frontal and Lat 11:46:38 COMMERCIAL TECHNICIAN CPT-54595 Venipuncture Draw Fee 09:12:45 COMMERCIAL TECHNICIAN CPT-J3420 Vitamin B12 1000mcg (Cyanocobalamin) 08:50:15 COMMERCIAL TECHNICIAN 02/08 CPT-09564 Abx/Therapy Injection 08:50:15 COMMERCIAL TECHNICIAN CPT-Cryo Cryotherapy 10:19:35 COMMERCIAL TECHNICIAN CPT-000 Give Appropriate Flu Vaccine 09:22:16 CDT CPT-J3420 Vitamin B12 1000mcg (Cyanocobalamin) 19:08:57 CDT 01/11 CPT-62554 Abx/Therapy Injection 19:08:57 CDT CPT-J3420 Vitamin B12 1000mcg (Cyanocobalamin) 08:19:08 CDT 12/11 CPT-84435 Abx/Therapy Injection 08:19:08 CDT CPT-J3420 Vitamin B12 1000mcg (Cyanocobalamin) 14:48:00 CDT 11/09 CPT-61367 Abx/Therapy Injection 14:47:59 CDT CPT-J3420 Vitamin B12 1000mcg (Cyanocobalamin) 08:34:04 CDT 10/09 CPT-54619 Abx/Therapy Injection 08:34:04 CDT CPT-J3420 Vitamin B12 1000mcg (Cyanocobalamin) 09:18:52 CDT 09/11 CPT-04785 Abx/Therapy Injection 09:18:52 CDT CPT-J3420 Vitamin B12 1000mcg (Cyanocobalamin) 08:35:44 CDT 09/04 CPT-84193 Abx/Therapy Injection 08:35:44 CDT CPT-39167 Immunization Single Admin 11:07:16 CDT CPT-58165 Hepatitis B adult IM 11:07:16 CDT CPT-J3420 Vitamin B12 1000mcg (Cyanocobalamin) 11:00:49 CDT 08/28 CPT-J1040 Depo Medrol 80 mg (Methyl Prednisolone Acetate) 11:00: 49 CDT CPT-79344 Abx/Therapy Injection 11:00:49 CDT CPT-J1040 Depo Medrol 80 mg (Methyl Prednisolone Acetate) 09:16: 23 CDT CPT-J3420 Vitamin B12 1000mcg (Cyanocobalamin) 08:27:05 CDT 08/20 CPT-93496 Abx/Therapy Injection 08:27:05 CDT CPT-77695 Recombivax HB Injection Suspension 5 MCG/0.5ML 10:00:41 CDT CPT-47955 Administration single or combination vaccine inc oral 10 :00:41 CDT CPT-38562 Sono transvag pelvis non OB uterus ovaries cervix 16:36: 57 CDT CPT-27751 LS spine comp w obliq 09:50:55 COMMERCIAL TECHNICIAN CPT-89591 Abd compl w upright 09:50:55 COMMERCIAL TECHNICIAN CPT-J1100 Decadron 4mg (Dexamethasone) 15:51:24 COMMERCIAL TECHNICIAN CPT-J1030 Depo Medrol 40 mg (Methyl Prednisolone Acetate) 15:51: 24 COMMERCIAL TECHNICIAN CPT-11194 Abx/Therapy Injection 15:51:24 COMMERCIAL TECHNICIAN CPT-J1100 Decadron 4mg (Dexamethasone) 15:26:33 COMMERCIAL TECHNICIAN CPT-J1030 Depo Medrol 40 mg (Methyl Prednisolone Acetate) 15:26: 33 COMMERCIAL TECHNICIAN CPT-08191 Sono retroperitoneal complete kidneys and bladder 17:15: 30 CDT CPT-99470 Abd compl w upright 16:09:25 CDT CPT-J1100 Decadron 8mg (Dexamethasone) 17:07:57 CDT CPT-65708 Abx/Therapy Injection 17:07:57 CDT CPT-J1100 Decadron 8mg (Dexamethasone) 16:55:24 CDT CPT-44753 Chest 2V Frontal and Lat 16:32:44 CDT
--- OUTSIDE RECORDS SUMMARY | 2016-11-05 01:23 | XMS REPORT | Clinical Summary ---
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 Jim Hiu MD Postconcussion syndrome ICD-310.2 Jim Hui MD [...] 1 po TID x 10 days CEPHALEXIN 20990901782 No Longer Active Vishal Hui MD Active ABILIFY MAINTENA 400 MG IM SUSR Injection once per month ARIPIPRAZOLE 88511400528 Active Juliet Kimbrough APRN Active PREDNISONE 20 MG TAB 2 tabs daily for 4 days, 1 tab daily for 4 days, 1/2 tab daily for 4 days PREDNISONE 30981462061 Active Vishal Hui MD Active IMITREX 50 MG ORAL TABS 1/2 tab every 6 hours prn SUMATRIPTAN SUCCINATE 74666916004 Active Luigi Martínez APRN Active AMBIEN 5 MG ORAL TABS 1 tab at bedtime ZOLPIDEM TARTRATE 32114492459 Active Luigi Martínez APRN Active PROZAC 20 MG ORAL CAPS 1 tab daily FLUOXETINE HCL 59627606736 Active Luigi Martínez APRN Active ABILIFY 15 MG ORAL TABS 1 tab daily ARIPIPRAZOLE 60225824791 Active Luigi Martínez APRN Active MINIPRESS 2 MG CAPS 4 cap po at night PRAZOSIN HCL 04223522444 Active Luigi Martínez APRN Active TOPAMAX 50 MG ORAL TABS 1 tab twice daily TOPIRAMATE 92754956336 Active Vishal Hui MD Active SAPHRIS 5 MG SUBL 1 po bid ASENAPINE MALEATE 32379007482 No Longer Active Luigi Martínez APRN Active LATUDA 80 MG TABS Take one by mouth daily LURASIDONE HCL 97345784149 No Longer Active Luigi Martínez SENIOR INTERACTIVE DEVELOPER Active AMLODIPINE BESYLATE 5 MG TABS 1 tablet by mouth daily AMLODIPINE BESYLATE 85846796058 No Longer Active Luigi Martínez APRN Active AMITRIPTYLINE HCL 100 MG TAB one at hs AMITRIPTYLINE HCL 34045077325 No Longer Active Vishal Hui MD Active TRAZODONE HCL 100 MG TAB take 1 at bedtime TRAZODONE HCL 82364798978 No Longer Active Vishal Hui MD Active VYVANSE 40 MG CAPS 1 daily, LISDEXAMFETAMINE DIMESYLATE 49883765605 No Longer Active Vishal Hui MD Active IBUPROFEN 600 MG TAB 1 po TID PRN IBUPROFEN 28220098443 No Longer Active Vishal Hui MD Active MIRALAX PACK 1 po qd PRN Constipation POLYETHYLENE GLYCOL 3350 29883026157 Active Vishal Hui MD Active PROZAC 20 MG CAP Take one by mouth daily FLUOXETINE HCL 20389282953 No Longer Active Vishal Hui MD Active ZOFRAN 4 MG TABS 1 po q6hr PRN Nausea ONDANSETRON HCL Active Vishal Hui MD Active BACTRIM DS 800-160 MG TABS 1 pill by mouth twice daily SULFAMETHOXAZOLE-TRIMETHOPRIM 44512492160 No Longer Active Sahara Rodriguez MD PhD Active DIFLUCAN 150 MG TAB 1 tablet by mouth daily FLUCONAZOLE 42389947660 No Longer Active Vishal Hui MD Active TIZANIDINE HCL 4 MG TABS 1 po q6hr PRN Muscle Spasm/Back Pain TIZANIDINE HCL 56622340456 Active Luigi Martínez APRN Active CLINDAMYCIN HCL 150 MG CAPS 1 four times a day CLINDAMYCIN HCL 90247073966 No Longer Active Neeraj Collins MD Active KEFLEX 500 MG ORAL CAPS 1 cap QID by mouth CEPHALEXIN 91817963388 No Longer Active Neeraj Collins MD Active DIFLUCAN 150 MG TABS 1 pill every other day x 2 doses FLUCONAZOLE 59783197055 No Longer Active Sahara Rodriguez MD PhD Active MELATONIN 3 MG CAPS 2 po q hs MELATONIN 26817527554 No Longer Active Sahara Rodriguez MD PhD Active MULTIVITAMINS CAPS Take one by mouth daily MULTIPLE VITAMIN 67011637406 No Longer Active Sahara Rodriguez MD PhD Active BACTRIM DS 800-160 MG TAB 1 tab by mouth twice daily TRIMETHOPRIM-SULFAMETHOXAZOLE 79774048842 No Longer Active Sahara Rodriguez MD PhD Active [facility] PROBIOTIC ORAL CHEW 2 daily po PROBIOTIC PRODUCT 53985959360 No Longer Active Sahara Rodriguez MD PhD Active BACTRIM DS 800-160 MG TABS 1 po BID x 7 days SULFAMETHOXAZOLE-TRIMETHOPRIM 91734736584 No Longer Active Vishal Hui MD Active CHANTIX STARTING MONTH EARNEST 0.5 MG X 11 & 1 MG X 42 TABS 0.5mg daily for 3 days , then 0.5mg BID for 4 days, then 1mg BID VARENICLINE TARTRATE 77091703570 No Longer Active TAMARA Gray Active METOPROLOL TARTRATE 50 MG TAB 1 po bid METOPROLOL TARTRATE 25415219554 Active Vishal Hui MD Active VERAPAMIL HCL CR 120 MG TAB CR 1 po bid VERAPAMIL HCL 76584195210 No Longer Active Vishal Hui MD Active METOPROLOL SUCCINATE 50 MG TB24 1 tablet by mouth daily METOPROLOL SUCCINATE 46105908007 No Longer Active Vishal uHi MD Active TRAMADOL HCL 50 MG TABS 1-2 po TID PRN Pain TRAMADOL HCL 82315558853 Active Vishal Hui MD Active SAPHRIS 10 MG SUBL 1 tab po bid ASENAPINE MALEATE 57106328514 No Longer Active Vishal Hui MD Active LISINOPRIL 20 MG TABS 1 tab po qd LISINOPRIL 39018353177 No Longer Active Vishal Hui MD Active BENADRYL 25 MG CAP 2 po tid prn anxiety DIPHENHYDRAMINE HCL 52798678703 Active Vishal Hui MD Active LATUDA 20 MG TABS Take one by mouth daily LURASIDONE HCL 34365489468 No Longer Active Vishal Hui MD Active TRAZODONE HCL 50 MG TABS 1/2 tab po qd prn for anxiety TRAZODONE HCL 81697843111 No Longer Active Vishal Hui MD Active PIROXICAM 20 MG CAPS 1 cap po qd PRN Pain PIROXICAM 98085770906 Active Vishal Hui MD Active OMEPRAZOLE 20 MG TBEC 1 po q a.m. 30min prior to first food intake OMEPRAZOLE 28793980004 Active Vishal Hui MD Active RANITIDINE HCL 150 MG CAPS 1 twice a day RANITIDINE HCL 89970946169 Active Vishal Hui MD Active LINZESS 290 MCG CAPS Take one by mouth daily LINACLOTIDE 52811460120 No Longer Active Vishal Hui MD Active SAPHRIS 5 MG SUBL 1 tab po qd ASENAPINE MALEATE 44002752123 No Longer Active Vishal Hui MD Active ZALEPLON 10 MG CAPS 1 cap po every other night ZALEPLON 04456471218 No Longer Active Vishal Hui MD Active LYRICA 50 MG CAPS 1 tab po TID PREGABALIN 56220541559 No Longer Active Vishal Hui MD Active LORATADINE 10 MG TABS 1 tab po qd LORATADINE 55437660048 No Longer Active Vishal Hui MD Active VERAPAMIL HCL ER 180 MG CR-TABS 1 tab po bid VERAPAMIL HCL 18950234211 No Longer Active Vishal Hui MD Active MIRALAX POWD 1 capfull once daily POLYETHYLENE GLYCOL 3350 99586934178 No Longer Active Vishal Hui MD Active PREDNISONE 20 MG TABS 1 tab po qd PREDNISONE 29411470041 No Longer Active Renzo Thornton DO Active LEVOFLOXACIN 500 MG TABS 1 tab po qd LEVOFLOXACIN 63728359853 No Longer Active Renzo Thornton DO Active BUSPIRONE HCL 15 MG TABS 1 tab po TID BUSPIRONE HCL 80404432515 No Longer Active Renzo Thornton DO Active BENZTROPINE MESYLATE 1 MG TABS 1 tab po qd BENZTROPINE MESYLATE 82668380808 No Longer Active Renzo Thornton DO Active ATENOLOL 25 MG TABS 1 tab po qd ATENOLOL 10926027557 No Longer Active Renzo Thornton DO Active ESCITALOPRAM OXALATE 20 MG TABS 1 tab po qd ESCITALOPRAM OXALATE 82147295779 No Longer Active Renzo Thornton DO Active ADVAIR DISKUS 250-50 MCG/DOSE AEPB 1 puff BID FLUTICASONE-SALMETEROL 77926529813 No Longer Active Renzo Thornton DO Active PREDNISONE 20 MG TAB 2 tabs daily for 3 days, 1 tab daily for 3 days, 1/2 tab daily for 2 days PREDNISONE 20448269408 No Longer Active Vishal Hui MD Active CEFDINIR 300 MG CAPS by mouth twice a day CEFDINIR 36812296001 No Longer Active Vishal Hui MD Active LANSOPRAZOLE 30 MG CPDR 1 cap po qd LANSOPRAZOLE 65577064959 No Longer Active Vishal Hui MD Active BACLOFEN 20 MG TABS 1 tab po tid BACLOFEN 28284097801 No Longer Active Vishal Hui MD Active ADVAIR DISKUS 250-50 MCG/DOSE AEPB 1 puff BID ADVAIR DISKUS 250-50 MCG/DOSE AEPB FLUTICASONE-SALMETEROL Inactive ESCITALOPRAM OXALATE 20 MG TABS 1 tab po qd ESCITALOPRAM OXALATE 20 MG TABS 398170 ESCITALOPRAM OXALATE Inactive ATENOLOL 25 MG TABS 1 tab po qd ATENOLOL 25 MG TABS 513983 ATENOLOL Inactive BENZTROPINE MESYLATE 1 MG TABS 1 tab po qd BENZTROPINE MESYLATE 1 MG TABS 884069 BENZTROPINE MESYLATE Inactive BUSPIRONE HCL 15 MG TABS 1 tab po TID BUSPIRONE HCL 15 MG TABS 795577 BUSPIRONE HCL Inactive LEVOFLOXACIN 500 MG TABS 1 tab po qd LEVOFLOXACIN 500 MG TABS 400517 LEVOFLOXACIN Inactive PREDNISONE 20 MG TABS 1 tab po qd PREDNISONE 20 MG TABS 777780 PREDNISONE Inactive MIRALAX POWD 1 capfull once daily MIRALAX POWD 506434 POLYETHYLENE GLYCOL 3350 Inactive VERAPAMIL HCL ER 180 MG CR-TABS 1 tab po bid VERAPAMIL HCL ER 180 MG CR-TABS VERAPAMIL HCL Inactive LORATADINE 10 MG TABS 1 tab po qd LORATADINE 10 MG TABS 438407 LORATADINE Inactive LYRICA 50 MG CAPS 1 tab po TID LYRICA 50 MG CAPS PREGABALIN Inactive ZALEPLON 10 MG CAPS 1 cap po every other night ZALEPLON 10 MG CAPS 211955 ZALEPLON Inactive SAPHRIS 5 MG SUBL 1 tab po qd SAPHRIS 5 MG SUBL ASENAPINE MALEATE Inactive TRAZODONE HCL 50 MG TABS 1/2 tab po qd prn for anxiety TRAZODONE HCL 50 MG TABS 683991 TRAZODONE HCL Inactive LATUDA 20 MG TABS Take one by mouth daily LATUDA 20 MG TABS LURASIDONE HCL Inactive LISINOPRIL 20 MG TABS 1 tab po qd LISINOPRIL 20 MG TABS 852587 LISINOPRIL Inactive SAPHRIS 10 MG SUBL 1 [...] twice daily BACTRIM DS 800-160 MG TAB 105629 TRIMETHOPRIM-SULFAMETHOXAZOLE Inactive MULTIVITAMINS CAPS Take one by mouth daily MULTIVITAMINS CAPS MULTIPLE VITAMIN Inactive MELATONIN 3 MG CAPS 2 po q hs MELATONIN 3 MG CAPS 138499 MELATONIN Inactive KEFLEX 500 MG ORAL CAPS 1 cap QID by mouth KEFLEX 500 MG ORAL CAPS 182459 CEPHALEXIN Inactive CLINDAMYCIN HCL 150 MG CAPS 1 four times a day CLINDAMYCIN HCL 150 MG CAPS 668788 CLINDAMYCIN HCL Inactive DIFLUCAN 150 MG TAB 1 tablet by mouth daily DIFLUCAN 150 MG TAB 032636 FLUCONAZOLE Inactive PROZAC 20 MG CAP Take one by mouth daily PROZAC 20 MG CAP 016375 FLUOXETINE HCL Inactive IBUPROFEN 600 MG TAB 1 po TID PRN IBUPROFEN 600 MG TAB 178821 IBUPROFEN Inactive VYVANSE 40 MG CAPS 1 daily, VYVANSE 40 MG CAPS LISDEXAMFETAMINE DIMESYLATE Inactive TRAZODONE HCL 100 MG TAB take 1 at bedtime TRAZODONE HCL 100 MG TAB 196539 TRAZODONE HCL Inactive AMITRIPTYLINE HCL 100 MG TAB one at hs AMITRIPTYLINE HCL 100 MG TAB 602189 AMITRIPTYLINE HCL Inactive AMLODIPINE BESYLATE 5 MG TABS 1 tablet by mouth daily AMLODIPINE BESYLATE 5 MG TABS 674669 AMLODIPINE BESYLATE Inactive LATUDA 80 MG TABS Take one by mouth daily LATUDA 80 MG TABS LURASIDONE HCL Inactive SAPHRIS 5 MG SUBL 1 po bid SAPHRIS 5 MG SUBL ASENAPINE MALEATE Inactive CEFDINIR 300 MG CAPS by mouth twice a day CEFDINIR 300 MG CAPS 537529 CEFDINIR Inactive PREDNISONE 20 MG TAB 2 tabs daily for 3 days, 1 tab daily for 3 days, 1/2 tab daily for 2 days PREDNISONE 20 MG TAB 049115 PREDNISONE Inactive BACTRIM DS 800-160 MG TABS 1 po BID x 7 days BACTRIM DS 800-160 MG TABS 19820521 SULFAMETHOXAZOLE-TRIMETHOPRIM Inactive DIFLUCAN 150 MG TABS 1 pill every other day x 2 doses DIFLUCAN 150 MG TABS 861862 FLUCONAZOLE Inactive BACTRIM DS 800-160 MG TABS 1 pill by mouth twice daily BACTRIM DS 800-160 MG TABS 19820521 SULFAMETHOXAZOLE-TRIMETHOPRIM Inactive KEFLEX 500 MG CAP 1 po TID x 10 days KEFLEX 500 MG CAP 864288 CEPHALEXIN Inactive Advance Directives Directive Description Start [...] % 11.6-14.8 platelet count 394 10^3/MM^3 10*3/mm3 295-145 9624/01/11 leukocyte count, blood 13.8 10^3/MM^3 10*3/mm3 4.6-10.2 [...] Panel - Chemistry sodium, serum 139 mmol/L 769-028 7918/12/03 carbon dioxide, venous blood 28.5 mmol/L 21.0-32.0 [...] 5.5 % 4.3-6.0 cholesterol, serum 159 mg/dL 671-213 3158/12/03 triglyceride, serum, fasting 118 mg/dL 30-200 HDL [...] ... - Chemistry sodium, serum 140 mmol/L 640-741 4017/05/28 potassium, serum 4.2 mmol/L 3.5-5.2 chloride, serum [...] Panel - Chemistry sodium, serum 141 mmol/L 700-725 6554 potassium, serum 4.3 mmol/L 3.5-5.2 chloride, serum 106 mmol/L 98-107 carbon dioxide, venous blood 25.7 mmol/L 21.0-32.0 blood glucose 119 mg/dL 65-110 urea nitrogen, blood 22 mg/dL 7-18 creatinine, serum 0.90 mg/dL 0.60-1.30 alanine aminotransferase (SGPT), serum 28 U/L 12-78 aspartate aminotransferase (SGOT), serum 13 U/L 15-37 calcium, serum 8.5 mg/dL 8.5-10.1 bilirubin, serum, total 0.20 mg/dL 0.00-1.00 sodium, serum 139 mmol/L 222-322 1860/12/22 carbon dioxide, venous blood 26.8 mmol/L 21.0-32.0 potassium, serum 4.2 mmol/L 3.5-5.2 chloride, serum 103 mmol/L 98-107 blood glucose 115 mg/dL 65-110 urea nitrogen, blood 20 mg/dL 7-18 creatinine, serum 0.90 mg/dL 0.55-1.30 alanine aminotransferase (SGPT), serum 38 U/L -78 aspartate aminotransferase (SGOT), serum 19 U/L 15-37 calcium, serum 8.6 mg/dL 8.5-10.1 bilirubin, serum, total 0.30 mg/dL 0.00-1.00 sodium, serum 139 mmol/L 819-575 5153/01/11 carbon dioxide, venous blood 26.6 mmol/L 21.0-32.0 [...] Rate - Chemistry sodium, serum 139 mmol/L 288-238 8789/12/11 carbon dioxide, venous blood 25.4 mmol/L 21.0-32.0 [...] semiquantitative 5.5 5.0-8.5 Lab Report: Varicella-Zoater Inga IgG,IgM/10154, HEP Be Antibody/556, RUB ... - Serology rubella antibody, serum, IgG 2.88 Encounters Code Encounter Date Provider Facility CPT-77297 Level 4 Est. Patient 09:00:51 COOKING INSTRUCTOR Vishal Hui MD [facility] CPT-10802 Level 3 Est. Patient 11:37:33 COOKING INSTRUCTOR Vishal Hui MD [facility] CPT-61329 Level 3 Est. Patient 08:41:09 COOKING INSTRUCTOR Vishal Hui MD [facility] CPT-27441 Level 4 Est. Patient 10:19:35 COOKING INSTRUCTOR Vishal Hui MD [facility] CPT-57227 Level 3 Est. Patient 13:35:45 CDT Vishal Hui MD [facility] CPT-42090 Level 4 Est. Patient 10:08:37 CDT Vishal Hui MD [facility] CPT-81696 Level 3 Est. Patient 11:22:10 CDT Vishal Hui MD [facility] CPT-29365 Level 3 Est. Patient 11:03:32 CDT Sahara Rodriguez MD [facility]-56919 Level 3 Est. Patient 09:41:35 CDT Vishal Hui MD [facility] CPT-86161 Level 3 Est. Patient 12:00:41 CDT Neeraj Collins MD [facility]-68239 Level 3 Est. Patient 09:16:24 CDT Vishal Hui MD [facility] CPT-42962 Level 4 Est. Patient 13:59:09 CDT Neeraj Collins MD [facility] CPT-03842 Level 3 Est. Patient 15:19:43 CDT Renzo Thornton DO [facility] CPT-50466 Level 3 Est. Patient 18:10:26 CDT Sahara Rodriguez MD [facility] CPT-17998 Level 3 Est. Patient 14:49:50 CDT Vishal Hui MD [facility] CPT-92092 Level 4 Est. Patient 18:41:46 CDT Neeraj Collins MD [facility] CPT-32741 Level 4 Est. Patient 09:18:38 COOKING INSTRUCTOR Vishal Hui MD [facility]-65777 Level 3 Est. Patient 14:43:55 COOKING INSTRUCTOR Vishal Hui MD [facility] CPT-33362 Level 3 Est. Patient 15:26:33 COOKING INSTRUCTOR Sahara Rodriguez MD PhD [facility]-24841 Level 3 Est. Patient 10:32:14 COOKING INSTRUCTOR Vishal Hui MD [facility] CPT-79046 Level 3 Est. Patient 15:12:52 COOKING INSTRUCTOR Vishal Hui MD [facility] CPT-86201 Level 4 Est. Patient 09:19:27 CDT Vishal Hui MD [facility] CPT-58369 Level 3 Est. Patient 15:53:00 CDT Renzo Thornton [facility] CPT-16189 Level 3 Est. Patient 15:50:30 CDT Renzo Thornton [facility] CPT-52236 Level 3 Est. Patient 16:55:24 CDT Vishal Hui MD [facility] Procedures Code Procedure Name Date Entry Date Standard Description CPT-J3420 Vitamin B12 1000mcg (Cyanocobalamin) 08:10:26 COOKING INSTRUCTOR 04/12 CPT-28902 Abx/Therapy Injection 08:10:26 COOKING INSTRUCTOR CPT-G0438 Initial Annual Wellness Exam 19:01:01 COOKING INSTRUCTOR CPT-J3420 Vitamin B12 1000mcg (Cyanocobalamin) 16:57:46 CDT 08/14 CPT-71502 Recombivax HB Injection Suspension 5 MCG/0.5ML 08:37:50 COOKING INSTRUCTOR CPT-33975 Immunization Single Admin 08:37:50 COOKING INSTRUCTOR CPT-J3420 Vitamin B12 1000mcg (Cyanocobalamin) 08:32:16 COOKING INSTRUCTOR 03/11 CPT-54087 Abx/Therapy Injection 08:32:16 COOKING INSTRUCTOR CPT-39145 Chest 2V Frontal and Lat 11:46:38 COOKING INSTRUCTOR CPT-61336 Venipuncture Draw Fee 09:12:45 COOKING INSTRUCTOR CPT-J3420 Vitamin B12 1000mcg (Cyanocobalamin) 08:50:15 COOKING INSTRUCTOR 02/08 CPT-45789 Abx/Therapy Injection 08:50:15 COOKING INSTRUCTOR CPT-Cryo Cryotherapy 10:19:35 COOKING INSTRUCTOR CPT-000 Give Appropriate Flu Vaccine 09:22:16 CDT CPT-J3420 Vitamin B12 1000mcg (Cyanocobalamin) 19:08:57 CDT 01/11 CPT-26888 Abx/Therapy Injection 19:08:57 CDT CPT-J3420 Vitamin B12 1000mcg (Cyanocobalamin) 08:19:08 CDT 12/11 CPT-82743 Abx/Therapy Injection 08:19:08 CDT CPT-J3420 Vitamin B12 1000mcg (Cyanocobalamin) 14:48:00 CDT 11/09 CPT-61958 Abx/Therapy Injection 14:47:59 CDT CPT-J3420 Vitamin B12 1000mcg (Cyanocobalamin) 08:34:04 CDT 10/09 CPT-98928 Abx/Therapy Injection 08:34:04 CDT CPT-J3420 Vitamin B12 1000mcg (Cyanocobalamin) 09:18:52 CDT 09/11 CPT-65617 Abx/Therapy Injection 09:18:52 CDT CPT-J3420 Vitamin B12 1000mcg (Cyanocobalamin) 08:35:44 CDT 09/04 CPT-57313 Abx/Therapy Injection 08:35:44 CDT CPT-99111 Immunization Single Admin 11:07:16 CDT CPT-62469 Hepatitis B adult IM 11:07:16 CDT CPT-J3420 Vitamin B12 1000mcg (Cyanocobalamin) 11:00:49 CDT 08/28 CPT-J1040 Depo Medrol 80 mg (Methyl Prednisolone Acetate) 11:00: 49 CDT CPT-02228 Abx/Therapy Injection 11:00:49 CDT CPT-J1040 Depo Medrol 80 mg (Methyl Prednisolone Acetate) 09:16: 23 CDT CPT-J3420 Vitamin B12 1000mcg (Cyanocobalamin) 08:27:05 CDT 08/20 CPT-46245 Abx/Therapy Injection 08:27:05 CDT CPT-29843 Recombivax HB Injection Suspension 5 MCG/0.5ML 10:00:41 CDT CPT-94032 Administration single or combination vaccine inc oral 10 :00:41 CDT CPT-13349 Sono transvag pelvis non OB uterus ovaries cervix 16:36: 57 CDT CPT-92518 LS spine comp w obliq 09:50:55 COOKING INSTRUCTOR CPT-84291 Abd compl w upright 09:50:55 COOKING INSTRUCTOR CPT-J1100 Decadron 4mg (Dexamethasone) 15:51:24 COOKING INSTRUCTOR CPT-J1030 Depo Medrol 40 mg (Methyl Prednisolone Acetate) 15:51: 24 COOKING INSTRUCTOR CPT-30410 Abx/Therapy Injection 15:51:24 COOKING INSTRUCTOR CPT-J1100 Decadron 4mg (Dexamethasone) 15:26:33 COOKING INSTRUCTOR CPT-J1030 Depo Medrol 40 mg (Methyl Prednisolone Acetate) 15:26: 33 COOKING INSTRUCTOR CPT-74126 Sono retroperitoneal complete kidneys and bladder 17:15: 30 CDT CPT-43807 Abd compl w upright 16:09:25 CDT CPT-J1100 Decadron 8mg (Dexamethasone) 17:07:57 CDT CPT-81214 Abx/Therapy Injection 17:07:57 CDT CPT-J1100 Decadron 8mg (Dexamethasone) 16:55:24 CDT CPT-84571 Chest 2V Frontal and Lat 16:32:44 CDT
--- OUTSIDE RECORDS SUMMARY | 2016-11-05 01:25 | XMS REPORT | Clinical Summary ---
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 Juliet Kimbrough APPLICATION DEVELOPMENT SPECIALIST Dependence on other enabling machines and [...] discussed ICD-305.1 Jim Hui MD Fatigue ICD-780.79 Inactive Vishal [...] blood glucose ICD-790.29 Inactive Vishal Hui MD Vaginitis ICD-616.10 Inactive Vishal Hui MD 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 Inactive Vishal Hui MD Medication List Medication Instructions Start Date Stop Date Generic Name NDC Status Provider Patient Instruction KEFLEX 500 MG CAP 1 po TID x 10 days CEPHALEXIN 12721157750 No Longer Active Vishal Hui MD Active ABILIFY MAINTENA 400 MG IM SUSR Injection once per month ARIPIPRAZOLE 78881972321 Active Juliet Kimbrough APRN Active PREDNISONE 20 MG TAB 2 tabs daily for 4 days, 1 tab daily for 4 days, 1/2 tab daily for 4 days PREDNISONE 99451356363 Active Vishal Hui MD Active IMITREX 50 MG ORAL TABS 1/2 tab every 6 hours prn SUMATRIPTAN SUCCINATE 36324109074 Active Luigi Martínez APRN Active AMBIEN 5 MG ORAL TABS 1 tab at bedtime ZOLPIDEM TARTRATE 46655942110 Active Luigi Martínez APRN Active PROZAC 20 MG ORAL CAPS 1 tab daily FLUOXETINE HCL 12186643534 Active Luigi Martínez APRN Active ABILIFY 15 MG ORAL TABS 1 tab daily ARIPIPRAZOLE 78330312162 Active Luigi Martínez APRN Active MINIPRESS 2 MG CAPS 4 cap po at night PRAZOSIN HCL 21077934105 Active Luigi Martínez APRN Active TOPAMAX 50 MG ORAL TABS 1 tab twice daily TOPIRAMATE 19090965653 Active Vishal Hui MD Active SAPHRIS 5 MG SUBL 1 po bid ASENAPINE MALEATE 55185956161 No Longer Active Luigi Martínez APRN Active LATUDA 80 MG TABS Take one by mouth daily LURASIDONE HCL 62397992159 No Longer Active Luigi Martínez APPLICATION DEVELOPMENT SPECIALIST Active AMLODIPINE BESYLATE 5 MG TABS 1 tablet by mouth daily AMLODIPINE BESYLATE 75053603351 No Longer Active Luigi Martínez APRN Active AMITRIPTYLINE HCL 100 MG TAB one at hs AMITRIPTYLINE HCL 15192482538 No Longer Active Vishal Hui MD Active TRAZODONE HCL 100 MG TAB take 1 at bedtime TRAZODONE HCL 23356911681 No Longer Active Vishal Hui MD Active VYVANSE 40 MG CAPS 1 daily, LISDEXAMFETAMINE DIMESYLATE 11136667228 No Longer Active Vishal Hui MD Active IBUPROFEN 600 MG TAB 1 po TID PRN IBUPROFEN 84441662444 No Longer Active Vishal Hui MD Active MIRALAX PACK 1 po qd PRN Constipation POLYETHYLENE GLYCOL 3350 94010059815 Active Vishal Hui MD Active PROZAC 20 MG CAP Take one by mouth daily FLUOXETINE HCL 66555893513 No Longer Active Vishal Hui MD Active ZOFRAN 4 MG TABS 1 po q6hr PRN Nausea ONDANSETRON HCL Active Vishal Hui MD Active BACTRIM DS 800-160 MG TABS 1 pill by mouth twice daily SULFAMETHOXAZOLE-TRIMETHOPRIM 49206239957 No Longer Active Sahara Rodriguez MD PhD Active DIFLUCAN 150 MG TAB 1 tablet by mouth daily FLUCONAZOLE 08412910035 No Longer Active Vishal Hui MD Active TIZANIDINE HCL 4 MG TABS 1 po q6hr PRN Muscle Spasm/Back Pain TIZANIDINE HCL 24523425924 Active Luigi Martínez APRN Active CLINDAMYCIN HCL 150 MG CAPS 1 four times a day CLINDAMYCIN HCL 72866618880 No Longer Active Neeraj Collins MD Active KEFLEX 500 MG ORAL CAPS 1 cap QID by mouth CEPHALEXIN 98830777021 No Longer Active Neeraj Collins MD Active DIFLUCAN 150 MG TABS 1 pill every other day x 2 doses FLUCONAZOLE 39447617502 No Longer Active Sahara Rodriguez MD PhD Active MELATONIN 3 MG CAPS 2 po q hs MELATONIN 82717838801 No Longer Active Sahara Rodriguez MD PhD Active MULTIVITAMINS CAPS Take one by mouth daily MULTIPLE VITAMIN 45673701537 No Longer Active Sahara Rodriguez MD PhD Active BACTRIM DS 800-160 MG TAB 1 tab by mouth twice daily TRIMETHOPRIM-SULFAMETHOXAZOLE 92101714653 No Longer Active Sahara Rodriguez MD PhD Active [facility] PROBIOTIC ORAL CHEW 2 daily po PROBIOTIC PRODUCT 83253964519 No Longer Active Sahara Rodriguez MD PhD Active BACTRIM DS 800-160 MG TABS 1 po BID x 7 days SULFAMETHOXAZOLE-TRIMETHOPRIM 44777405117 No Longer Active Vishal Hui MD Active CHANTIX STARTING MONTH EARNEST 0.5 MG X 11 & 1 MG X 42 TABS 0.5mg daily for 3 days , then 0.5mg BID for 4 days, then 1mg BID VARENICLINE TARTRATE 87517364419 No Longer Active TAMARA Gray Active METOPROLOL TARTRATE 50 MG TAB 1 po bid METOPROLOL TARTRATE 58701537654 Active Vishal Hui MD Active VERAPAMIL HCL CR 120 MG TAB CR 1 po bid VERAPAMIL HCL 69283741671 No Longer Active Vishal Hui MD Active METOPROLOL SUCCINATE 50 MG TB24 1 tablet by mouth daily METOPROLOL SUCCINATE 55207757868 No Longer Active Vishal Hui MD Active TRAMADOL HCL 50 MG TABS 1-2 po TID PRN Pain TRAMADOL HCL 30430788582 Active Vishal Hui MD Active SAPHRIS 10 MG SUBL 1 tab po bid ASENAPINE MALEATE 64697095017 No Longer Active Vishal Hui MD Active LISINOPRIL 20 MG TABS 1 tab po qd LISINOPRIL 89006558304 No Longer Active Vishal Hui MD Active BENADRYL 25 MG CAP 2 po tid prn anxiety DIPHENHYDRAMINE HCL 82019590957 Active Vishal Hui MD Active LATUDA 20 MG TABS Take one by mouth daily LURASIDONE HCL 33519487965 No Longer Active Vishal Hui MD Active TRAZODONE HCL 50 MG TABS 1/2 tab po qd prn for anxiety TRAZODONE HCL 60220843355 No Longer Active Vishal Hui MD Active PIROXICAM 20 MG CAPS 1 cap po qd PRN Pain PIROXICAM 93530986399 Active Vishal Hui MD Active OMEPRAZOLE 20 MG TBEC 1 po q a.m. 30min prior to first food intake OMEPRAZOLE 26881980631 Active Vishal Hui MD Active RANITIDINE HCL 150 MG CAPS 1 twice a day RANITIDINE HCL 01246331918 Active Vishal Hui MD Active LINZESS 290 MCG CAPS Take one by mouth daily LINACLOTIDE 18068994919 No Longer Active Vishal Hui MD Active SAPHRIS 5 MG SUBL 1 tab po qd ASENAPINE MALEATE 08553970235 No Longer Active Vishal Hui MD Active ZALEPLON 10 MG CAPS 1 cap po every other night ZALEPLON 36400878875 No Longer Active Vishal Hui MD Active LYRICA 50 MG CAPS 1 tab po TID PREGABALIN 64835089377 No Longer Active Vishal Hui MD Active LORATADINE 10 MG TABS 1 tab po qd LORATADINE 64145369410 No Longer Active Vishal Hui MD Active VERAPAMIL HCL ER 180 MG CR-TABS 1 tab po bid VERAPAMIL HCL 20530155216 No Longer Active Vishal Hui MD Active MIRALAX POWD 1 capfull once daily POLYETHYLENE GLYCOL 3350 90165872548 No Longer Active Vishal Hui MD Active PREDNISONE 20 MG TABS 1 tab po qd PREDNISONE 83518930578 No Longer Active Renzo Thornton DO Active LEVOFLOXACIN 500 MG TABS 1 tab po qd LEVOFLOXACIN 84521069392 No Longer Active Renzo Thornton DO Active BUSPIRONE HCL 15 MG TABS 1 tab po TID BUSPIRONE HCL 64274384917 No Longer Active Renzo Thornton DO Active BENZTROPINE MESYLATE 1 MG TABS 1 tab po qd BENZTROPINE MESYLATE 13483524097 No Longer Active Renzo Thornton DO Active ATENOLOL 25 MG TABS 1 tab po qd ATENOLOL 14475078688 No Longer Active Renzo Thornton DO Active ESCITALOPRAM OXALATE 20 MG TABS 1 tab po qd ESCITALOPRAM OXALATE 69007057875 No Longer Active Renzo Thornton DO Active ADVAIR DISKUS 250-50 MCG/DOSE AEPB 1 puff BID FLUTICASONE-SALMETEROL 27582624582 No Longer Active Renzo Thornton DO Active PREDNISONE 20 MG TAB 2 tabs daily for 3 days, 1 tab daily for 3 days, 1/2 tab daily for 2 days PREDNISONE 27236945025 No Longer Active Vishal Hui MD Active CEFDINIR 300 MG CAPS by mouth twice a day CEFDINIR 43913828804 No Longer Active Vishal Hui MD Active LANSOPRAZOLE 30 MG CPDR 1 cap po qd LANSOPRAZOLE 32584988028 No Longer Active Vishal Hui MD Active BACLOFEN 20 MG TABS 1 tab po tid BACLOFEN 18435911600 No Longer Active Vishal Hui MD Active ADVAIR DISKUS 250-50 MCG/DOSE AEPB 1 puff BID ADVAIR DISKUS 250-50 MCG/DOSE AEPB FLUTICASONE-SALMETEROL Inactive ESCITALOPRAM OXALATE 20 MG TABS 1 tab po qd ESCITALOPRAM OXALATE 20 MG TABS 344915 ESCITALOPRAM OXALATE Inactive ATENOLOL 25 MG TABS 1 tab po qd ATENOLOL 25 MG TABS 768754 ATENOLOL Inactive BENZTROPINE MESYLATE 1 MG TABS 1 tab po qd BENZTROPINE MESYLATE 1 MG TABS 453384 BENZTROPINE MESYLATE Inactive BUSPIRONE HCL 15 MG TABS 1 tab po TID BUSPIRONE HCL 15 MG TABS 903372 BUSPIRONE HCL Inactive LEVOFLOXACIN 500 MG TABS 1 tab po qd LEVOFLOXACIN 500 MG TABS 834109 LEVOFLOXACIN Inactive PREDNISONE 20 MG TABS 1 tab po qd PREDNISONE 20 MG TABS 208168 PREDNISONE Inactive MIRALAX POWD 1 capfull once daily MIRALAX POWD 675475 POLYETHYLENE GLYCOL 3350 Inactive VERAPAMIL HCL ER 180 MG CR-TABS 1 tab po bid VERAPAMIL HCL ER 180 MG CR-TABS VERAPAMIL HCL Inactive LORATADINE 10 MG TABS 1 tab po qd LORATADINE 10 MG TABS 169435 LORATADINE Inactive LYRICA 50 MG CAPS 1 tab po TID LYRICA 50 MG CAPS PREGABALIN Inactive ZALEPLON 10 MG CAPS 1 cap po every other night ZALEPLON 10 MG CAPS 411695 ZALEPLON Inactive SAPHRIS 5 MG SUBL 1 tab po qd SAPHRIS 5 MG SUBL ASENAPINE MALEATE Inactive TRAZODONE HCL 50 MG TABS 1/2 tab po qd prn for anxiety TRAZODONE HCL 50 MG TABS 160539 TRAZODONE HCL Inactive LATUDA 20 MG TABS Take one by mouth daily LATUDA 20 MG TABS LURASIDONE HCL Inactive LISINOPRIL 20 MG TABS 1 tab po qd LISINOPRIL 20 MG TABS 784603 LISINOPRIL Inactive SAPHRIS 10 MG SUBL 1 [...] twice daily BACTRIM DS 800-160 MG TAB 799541 TRIMETHOPRIM-SULFAMETHOXAZOLE Inactive MULTIVITAMINS CAPS Take one by mouth daily MULTIVITAMINS CAPS MULTIPLE VITAMIN Inactive MELATONIN 3 MG CAPS 2 po q hs MELATONIN 3 MG CAPS 984494 MELATONIN Inactive KEFLEX 500 MG ORAL CAPS 1 cap QID by mouth KEFLEX 500 MG ORAL CAPS 453632 CEPHALEXIN Inactive CLINDAMYCIN HCL 150 MG CAPS 1 four times a day CLINDAMYCIN HCL 150 MG CAPS 952733 CLINDAMYCIN HCL Inactive DIFLUCAN 150 MG TAB 1 tablet by mouth daily DIFLUCAN 150 MG TAB 282678 FLUCONAZOLE Inactive PROZAC 20 MG CAP Take one by mouth daily PROZAC 20 MG CAP 186574 FLUOXETINE HCL Inactive IBUPROFEN 600 MG TAB 1 po TID PRN IBUPROFEN 600 MG TAB 774276 IBUPROFEN Inactive VYVANSE 40 MG CAPS 1 daily, VYVANSE 40 MG CAPS LISDEXAMFETAMINE DIMESYLATE Inactive TRAZODONE HCL 100 MG TAB take 1 at bedtime TRAZODONE HCL 100 MG TAB 800768 TRAZODONE HCL Inactive AMITRIPTYLINE HCL 100 MG TAB one at hs AMITRIPTYLINE HCL 100 MG TAB 715405 AMITRIPTYLINE HCL Inactive AMLODIPINE BESYLATE 5 MG TABS 1 tablet by mouth daily AMLODIPINE BESYLATE 5 MG TABS 771478 AMLODIPINE BESYLATE Inactive LATUDA 80 MG TABS Take one by mouth daily LATUDA 80 MG TABS LURASIDONE HCL Inactive SAPHRIS 5 MG SUBL 1 po bid SAPHRIS 5 MG SUBL ASENAPINE MALEATE Inactive CEFDINIR 300 MG CAPS by mouth twice a day CEFDINIR 300 MG CAPS 922809 CEFDINIR Inactive PREDNISONE 20 MG TAB 2 tabs daily for 3 days, 1 tab daily for 3 days, 1/2 tab daily for 2 days PREDNISONE 20 MG TAB 432775 PREDNISONE Inactive BACTRIM DS 800-160 MG TABS 1 po BID x 7 days BACTRIM DS 800-160 MG TABS 19820521 SULFAMETHOXAZOLE-TRIMETHOPRIM Inactive DIFLUCAN 150 MG TABS 1 pill every other day x 2 doses DIFLUCAN 150 MG TABS 919027 FLUCONAZOLE Inactive BACTRIM DS 800-160 MG TABS 1 pill by mouth twice daily BACTRIM DS 800-160 MG TABS 19820521 SULFAMETHOXAZOLE-TRIMETHOPRIM Inactive KEFLEX 500 MG CAP 1 po TID x 10 days KEFLEX 500 MG CAP 998976 CEPHALEXIN Inactive Advance Directives Directive Description Start [...] % 11.6-14.8 platelet count 394 10^3/MM^3 10*3/mm3 073-633 7404/01/11 leukocyte count, blood 13.8 10^3/MM^3 10*3/mm3 4.6-10.2 [...] Panel - Chemistry sodium, serum 139 mmol/L 873-605 5005/12/03 carbon dioxide, venous blood 28.5 mmol/L 21.0-32.0 [...] 5.5 % 4.3-6.0 cholesterol, serum 159 mg/dL 290-279 0638/12/03 triglyceride, serum, fasting 118 mg/dL 30-200 HDL [...] ... - Chemistry sodium, serum 140 mmol/L 421-066 6280/05/28 potassium, serum 4.2 mmol/L 3.5-5.2 chloride, serum [...] fL 80-97 hematocrit, blood 38.5 % 36.0-46.0 hemoglobin, blood [...] Panel - Chemistry sodium, serum 139 mmol/L 428-761 8939/01/11 carbon dioxide, venous blood 26.6 mmol/L 21.0-32.0 potassium, serum 4.1 mmol/L 3.5-5.2 chloride, serum 100 mmol/L 98-107 blood glucose 86 mg/dL 65-110 urea nitrogen, blood 16 mg/dL 7-18 creatinine, serum 1.00 mg/dL 0.55-1.30 alanine aminotransferase (SGPT), serum 48 U/L 12-78 aspartate aminotransferase (SGOT), serum 17 U/L 15-37 calcium, serum 9.1 mg/dL 8.5-10.1 bilirubin, serum, total 0.40 mg/dL 0.00-1.00 sodium, serum 139 mmol/L 811-398 4076/12/22 carbon dioxide, venous blood 26.8 mmol/L 21.0-32.0 [...] Rate - Chemistry sodium, serum 139 mmol/L 254-364 2782/12/11 carbon dioxide, venous blood 25.4 mmol/L 21.0-32.0 potassium, serum 3.9 mmol/L 3.5-5.2 chloride, serum 105 mmol/L 98-107 blood glucose 98 mg/dL 65-110 urea nitrogen, blood 18 mg/dL -18 creatinine, serum 0.96 mg/dL 0.55-1.30 alanine aminotransferase [...] thyroxine, serum, free 1.02 ng/dL 0.76-1.46 TSH 1.48 m[iU]/mL 0.36-3.74 thyroxine, [...] Negative Negative nitrite, urine, semiquantitative Negative Negative Encounters Code Encounter Date Provider Facility CPT-63016 Level 4 Est. Patient 09:00:51 BUTTER PRODUCTION SUPERVISOR Vishal Hui MD [facility] CPT-32844 Level 3 Est. Patient 11:37:33 BUTTER PRODUCTION SUPERVISOR Vishal Hui MD [facility] CPT-40473 Level 3 Est. Patient 08:41:09 BUTTER PRODUCTION SUPERVISOR Vishal Hui MD [facility] CPT-47500 Level 4 Est. Patient 10:19:35 BUTTER PRODUCTION SUPERVISOR Vishal Hui MD [facility] CPT-41263 Level 3 Est. Patient 13:35:45 CDT Vishal Hui MD [facility] CPT-33026 Level 4 Est. Patient 10:08:37 CDT Vishal Hui MD [facility] CPT-48507 Level 3 Est. Patient 11:22:10 CDT Vishal Hui MD [facility] CPT-48348 Level 3 Est. Patient 11:03:32 CDT Sahara Rodriguez MD [facility] CPT-76356 Level 3 Est. Patient 09:41:35 CDT Vishal Hui MD [facility]-74639 Level 3 Est. Patient 12:00:41 CDT Neeraj Collins MD [facility] CPT-58346 Level 3 Est. Patient 09:16:24 CDT Vishal Hui MD [facility] CPT-16403 Level 4 Est. Patient 13:59:09 CDT Neeraj Collins MD [facility] CPT-46257 Level 3 Est. Patient 15:19:43 CDT Renzo Thornton DO [facility] CPT-80316 Level 3 Est. Patient 18:10:26 CDT Sahara Rodriguez MD [facility] CPT-12720 Level 3 Est. Patient 14:49:50 CDT Vishal Hui MD [facility] CPT-28850 Level 4 Est. Patient 18:41:46 CDT Neeraj Collins MD [facility] CPT-88191 Level 4 Est. Patient 09:18:38 BUTTER PRODUCTION SUPERVISOR Vishal Hui MD [facility] CPT-57730 Level 3 Est. Patient 14:43:55 BUTTER PRODUCTION SUPERVISOR Vishal Hui MD [facility] CPT-04553 Level 3 Est. Patient 15:26:33 BUTTER PRODUCTION SUPERVISOR Sahara Rodriguez MD PhD [facility] CPT-17190 Level 3 Est. Patient 10:32:14 BUTTER PRODUCTION SUPERVISOR Vishal Hui MD [facility] CPT-64072 Level 3 Est. Patient 15:12:52 BUTTER PRODUCTION SUPERVISOR Vishal Hui MD [facility] CPT-94009 Level 4 Est. Patient 09:19:27 CDT Vishal Hui MD [facility] CPT-48142 Level 3 Est. Patient 15:53:00 CDT Renzo Thornton [facility] CPT-91016 Level 3 Est. Patient 15:50:30 CDT Renzo Thornton [facility] CPT-35601 Level 3 Est. Patient 16:55:24 CDT Vishal Hui MD [facility] Procedures Code Procedure Name Date Entry Date Standard Description CPT-J3420 Vitamin B12 1000mcg (Cyanocobalamin) 08:10:26 BUTTER PRODUCTION SUPERVISOR 04/12 CPT-88882 Abx/Therapy Injection 08:10:26 BUTTER PRODUCTION SUPERVISOR CPT-G0438 Initial Annual Wellness Exam 19:01:01 BUTTER PRODUCTION SUPERVISOR CPT-J3420 Vitamin B12 1000mcg (Cyanocobalamin) 16:57:46 CDT 08/14 CPT-72212 Recombivax HB Injection Suspension 5 MCG/0.5ML 08:37:50 BUTTER PRODUCTION SUPERVISOR CPT-88968 Immunization Single Admin 08:37:50 BUTTER PRODUCTION SUPERVISOR CPT-J3420 Vitamin B12 1000mcg (Cyanocobalamin) 08:32:16 BUTTER PRODUCTION SUPERVISOR 03/11 CPT-14863 Abx/Therapy Injection 08:32:16 BUTTER PRODUCTION SUPERVISOR CPT-24106 Chest 2V Frontal and Lat 11:46:38 BUTTER PRODUCTION SUPERVISOR CPT-44847 Venipuncture Draw Fee 09:12:45 BUTTER PRODUCTION SUPERVISOR CPT-J3420 Vitamin B12 1000mcg (Cyanocobalamin) 08:50:15 BUTTER PRODUCTION SUPERVISOR 02/08 CPT-93628 Abx/Therapy Injection 08:50:15 BUTTER PRODUCTION SUPERVISOR CPT-Cryo Cryotherapy 10:19:35 BUTTER PRODUCTION SUPERVISOR CPT-000 Give Appropriate Flu Vaccine 09:22:16 CDT CPT-J3420 Vitamin B12 1000mcg (Cyanocobalamin) 19:08:57 CDT 01/11 CPT-94615 Abx/Therapy Injection 19:08:57 CDT CPT-J3420 Vitamin B12 1000mcg (Cyanocobalamin) 08:19:08 CDT 12/11 CPT-82686 Abx/Therapy Injection 08:19:08 CDT CPT-J3420 Vitamin B12 1000mcg (Cyanocobalamin) 14:48:00 CDT 11/09 CPT-91402 Abx/Therapy Injection 14:47:59 CDT CPT-J3420 Vitamin B12 1000mcg (Cyanocobalamin) 08:34:04 CDT 10/09 CPT-80941 Abx/Therapy Injection 08:34:04 CDT CPT-J3420 Vitamin B12 1000mcg (Cyanocobalamin) 09:18:52 CDT 09/11 CPT-68901 Abx/Therapy Injection 09:18:52 CDT CPT-J3420 Vitamin B12 1000mcg (Cyanocobalamin) 08:35:44 CDT 09/04 CPT-26579 Abx/Therapy Injection 08:35:44 CDT CPT-60933 Immunization Single Admin 11:07:16 CDT CPT-00370 Hepatitis B adult IM 11:07:16 CDT CPT-J3420 Vitamin B12 1000mcg (Cyanocobalamin) 11:00:49 CDT 08/28 CPT-J1040 Depo Medrol 80 mg (Methyl Prednisolone Acetate) 11:00: 49 CDT CPT-16766 Abx/Therapy Injection 11:00:49 CDT CPT-J1040 Depo Medrol 80 mg (Methyl Prednisolone Acetate) 09:16: 23 CDT CPT-J3420 Vitamin B12 1000mcg (Cyanocobalamin) 08:27:05 CDT 08/20 CPT-39584 Abx/Therapy Injection 08:27:05 CDT CPT-05292 Recombivax HB Injection Suspension 5 MCG/0.5ML 10:00:41 CDT CPT-38720 Administration single or combination vaccine inc oral 10 :00:41 CDT CPT-74793 Sono transvag pelvis non OB uterus ovaries cervix 16:36: 57 CDT CPT-12630 LS spine comp w obliq 09:50:55 BUTTER PRODUCTION SUPERVISOR CPT-31986 Abd compl w upright 09:50:55 BUTTER PRODUCTION SUPERVISOR CPT-J1100 Decadron 4mg (Dexamethasone) 15:51:24 BUTTER PRODUCTION SUPERVISOR CPT-J1030 Depo Medrol 40 mg (Methyl Prednisolone Acetate) 15:51: 24 BUTTER PRODUCTION SUPERVISOR CPT-74863 Abx/Therapy Injection 15:51:24 BUTTER PRODUCTION SUPERVISOR CPT-J1100 Decadron 4mg (Dexamethasone) 15:26:33 BUTTER PRODUCTION SUPERVISOR CPT-J1030 Depo Medrol 40 mg (Methyl Prednisolone Acetate) 15:26: 33 BUTTER PRODUCTION SUPERVISOR CPT-11206 Sono retroperitoneal complete kidneys and bladder 17:15: 30 CDT CPT-41163 Abd compl w upright 16:09:25 CDT CPT-J1100 Decadron 8mg (Dexamethasone) 17:07:57 CDT CPT-58785 Abx/Therapy Injection 17:07:57 CDT CPT-J1100 Decadron 8mg (Dexamethasone) 16:55:24 CDT CPT-13741 Chest 2V Frontal and Lat 16:32:44 CDT
--- OUTSIDE RECORDS SUMMARY | 2016-11-05 01:26 | XMS REPORT | Clinical Summary ---
Author Author Admin, E Organization [employer] Address Unknown Phone Unavailable Allergies, Adverse Reactions, [...] ORAL CHEW 2 daily po PROBIOTIC PRODUCT 42663682468 Active Jillina Frazell PARTS IDENTIFIER Active IBUPROFEN 600 MG TAB 1 po TID PRN IBUPROFEN 02260184065 Active Jillina Frazell PARTS IDENTIFIER Active BACTRIM DS 800-160 MG TAB 1 tab by mouth twice daily TRIMETHOPRIM-SULFAMETHOXAZOLE 72327995086 Active Neeraj Collins MD Active BACTRIM DS 800-160 MG TABS 1 po BID x 7 days SULFAMETHOXAZOLE-TRIMETHOPRIM 41787211149 No Longer Active Vishal Hui MD Active CHANTIX STARTING MONTH EARNEST 0.5 MG X 11 & 1 MG X 42 TABS 0.5mg daily for 3 days , then 0.5mg BID for 4 days, then 1mg BID VARENICLINE TARTRATE 22972445900 No Longer Active TAMARA Gray Active METOPROLOL TARTRATE 50 MG TAB 1 po bid METOPROLOL TARTRATE 58657765476 Active Vishal Hui MD Active TRAZODONE HCL 100 MG TAB take 1 at bedtime TRAZODONE HCL 98738375829 Active Vishal Hui MD Active AMLODIPINE BESYLATE 5 MG TABS 1 tablet by mouth daily AMLODIPINE BESYLATE 51263296848 Active Vishal Hui MD Active VERAPAMIL HCL CR 120 MG TAB CR 1 po bid VERAPAMIL HCL 82074150446 No Longer Active Vishal Hui MD Active METOPROLOL SUCCINATE 50 MG TB24 1 tablet by mouth daily METOPROLOL SUCCINATE 07313822458 No Longer Active Vishal Hui MD Active TRAMADOL HCL 50 MG TABS 1-2 po TID PRN Pain TRAMADOL HCL 38540294344 Active Vishal Hui MD Active SAPHRIS 5 MG SUBL 1 po bid ASENAPINE MALEATE 69608906590 Active Vishal Hui MD Active SAPHRIS 10 MG SUBL 1 tab po bid ASENAPINE MALEATE 78792082996 No Longer Active Vishal Hui MD Active LISINOPRIL 20 MG TABS 1 tab po qd LISINOPRIL 97622098598 No Longer Active Vishal Hui MD Active BENADRYL 25 MG CAP 2 po tid prn anxiety DIPHENHYDRAMINE HCL 15242623996 Active Vishal Hui MD Active LATUDA 80 MG TABS Take one by mouth daily LURASIDONE HCL 31392193460 Active Vishal Hui MD Active LATUDA 20 MG TABS Take one by mouth daily LURASIDONE HCL 49207271294 No Longer Active Vishal Hui MD Active TRAZODONE HCL 50 MG TABS 1/2 tab po qd prn for anxiety TRAZODONE HCL 54630592935 No Longer Active Vishal Hui MD Active PIROXICAM 20 MG CAPS 1 cap po qd PRN Pain PIROXICAM 79342349280 Active Vishal Hui MD Active OMEPRAZOLE 20 MG TBEC 1 po q a.m. 30min prior to first food intake OMEPRAZOLE 23292337794 Active Vishal Hui MD Active RANITIDINE HCL 150 MG CAPS 1 twice a day RANITIDINE HCL 10634038875 Active Vishal Hui MD Active MULTIVITAMINS CAPS Take one by mouth daily MULTIPLE VITAMIN 10230517228 Active Vishal Hui MD Active MELATONIN 3 MG CAPS 2 po q hs MELATONIN 63216280912 Active Vishal Hui MD Active PROZAC 20 MG CAP Take one by mouth daily FLUOXETINE HCL 68120907471 Active Vishal Hui MD Active LINZESS 290 MCG CAPS Take one by mouth daily LINACLOTIDE 60243363902 Active Vishal Hui MD Active SAPHRIS 5 MG SUBL 1 tab po qd ASENAPINE MALEATE 72279770070 No Longer Active Vishal Hui MD Active ZALEPLON 10 MG CAPS 1 cap po every other night ZALEPLON 34509453052 No Longer Active Vishal Hui MD Active LYRICA 50 MG CAPS 1 tab po TID PREGABALIN 57015600432 No Longer Active Vishal Hui MD Active LORATADINE 10 MG TABS 1 tab po qd LORATADINE 42040138539 No Longer Active Vishal Hui MD Active VERAPAMIL HCL ER 180 MG CR-TABS 1 tab po bid VERAPAMIL HCL 89169170369 No Longer Active Vishal Hui MD Active MIRALAX POWD 1 capfull once daily POLYETHYLENE GLYCOL 3350 41193547647 No Longer Active Vishal Hui MD Active PREDNISONE 20 MG TABS 1 tab po qd PREDNISONE 78962822536 No Longer Active Renzo Thornton DO Active LEVOFLOXACIN 500 MG TABS 1 tab po qd LEVOFLOXACIN 76281845252 No Longer Active Renzo Thornton DO Active BUSPIRONE HCL 15 MG TABS 1 tab po TID BUSPIRONE HCL 42343868981 No Longer Active Renzo Thornton DO Active BENZTROPINE MESYLATE 1 MG TABS 1 tab po qd BENZTROPINE MESYLATE 70903175406 No Longer Active Renzo Thornton DO Active ATENOLOL 25 MG TABS 1 tab po qd ATENOLOL 23932570513 No Longer Active Renzo Thornton DO Active ESCITALOPRAM OXALATE 20 MG TABS 1 tab po qd ESCITALOPRAM OXALATE 45460765933 No Longer Active Renzo Thornton DO Active ADVAIR DISKUS 250-50 MCG/DOSE AEPB 1 puff BID FLUTICASONE-SALMETEROL 98120776736 No Longer Active Renzo Thornton DO Active PREDNISONE 20 MG TAB 2 tabs daily for 3 days, 1 tab daily for 3 days, 1/2 tab daily for 2 days PREDNISONE 19969098422 No Longer Active Vishal Hui MD Active CEFDINIR 300 MG CAPS by mouth twice a day CEFDINIR 27231822649 No Longer Active Vishal Hui MD Active LANSOPRAZOLE 30 MG CPDR 1 cap po qd LANSOPRAZOLE 68810362849 No Longer Active Vishal Hui MD Active TOPAMAX 25 MG TABS 1 tab po bid TOPIRAMATE 25876326105 Active Vishal Hui MD Active MINIPRESS 2 MG CAPS 1 cap po at night PRAZOSIN HCL 34620570017 Active Vishal Hui MD Active BACLOFEN 20 MG TABS 1 tab po tid BACLOFEN 04674286379 Active Vishal Hui MD Active ADVAIR DISKUS 250-50 MCG/DOSE AEPB 1 puff BID ADVAIR DISKUS 250-50 MCG/DOSE AEPB FLUTICASONE-SALMETEROL Inactive ESCITALOPRAM OXALATE 20 MG TABS 1 tab po qd ESCITALOPRAM OXALATE 20 MG TABS 700826 ESCITALOPRAM OXALATE Inactive ATENOLOL 25 MG TABS 1 tab po qd ATENOLOL 25 MG TABS 862911 ATENOLOL Inactive BENZTROPINE MESYLATE 1 MG TABS 1 tab po qd BENZTROPINE MESYLATE 1 MG TABS 171416 BENZTROPINE MESYLATE Inactive BUSPIRONE HCL 15 MG TABS 1 tab po TID BUSPIRONE HCL 15 MG TABS 903405 BUSPIRONE HCL Inactive LEVOFLOXACIN 500 MG TABS 1 tab po qd LEVOFLOXACIN 500 MG TABS 858916 LEVOFLOXACIN Inactive PREDNISONE 20 MG TABS 1 tab po qd PREDNISONE 20 MG TABS 822513 PREDNISONE Inactive MIRALAX POWD 1 capfull once daily MIRALAX POWD 397498 POLYETHYLENE GLYCOL 3350 Inactive VERAPAMIL HCL ER 180 MG CR-TABS 1 tab po bid VERAPAMIL HCL ER 180 MG CR-TABS VERAPAMIL HCL Inactive LORATADINE 10 MG TABS 1 tab po qd LORATADINE 10 MG TABS 333290 LORATADINE Inactive LYRICA 50 MG CAPS 1 tab po TID LYRICA 50 MG CAPS PREGABALIN Inactive ZALEPLON 10 MG CAPS 1 cap po every other night ZALEPLON 10 MG CAPS 560351 ZALEPLON Inactive SAPHRIS 5 MG SUBL 1 tab po qd SAPHRIS 5 MG SUBL ASENAPINE MALEATE Inactive TRAZODONE HCL 50 MG TABS 1/2 tab po qd prn for anxiety TRAZODONE HCL 50 MG TABS 605190 TRAZODONE HCL Inactive LATUDA 20 MG TABS Take one by mouth daily LATUDA 20 MG TABS LURASIDONE HCL Inactive LISINOPRIL 20 MG TABS 1 tab po qd LISINOPRIL 20 MG TABS 236225 LISINOPRIL Inactive SAPHRIS 10 MG SUBL 1 [...] twice a day CEFDINIR 300 MG CAPS 310779 CEFDINIR Inactive PREDNISONE 20 MG TAB 2 tabs daily for 3 days, 1 tab daily for 3 days, 1/2 tab daily for 2 days PREDNISONE 20 MG TAB 510691 PREDNISONE Inactive BACTRIM DS 800-160 MG TABS [...] U/L Chart Maintenance: outside labs entered on [employer] - Hematology leukocyte count, blood 8.9 10*3/mm3 hemoglobin, blood 13.2 g/dL platelet count 364 10*3/mm3 Lab Report: Comp. Metabolic Panel - Chemistry sodium, serum 141 mmol/L [phone] potassium, serum 4.3 mmol/L 3.5-5.2 chloride, serum [...] Panel - Chemistry sodium, serum 139 mmol/L 482-830 4210/12/31 potassium, serum 4.8 mmol/L 3.5-5.2 chloride, serum 106 mmol/L 98-107 carbon dioxide, venous blood 24.3 mmol/L 21.0-32.0 blood glucose 90 mg/dL 65-110 urea nitrogen, blood 16 mg/dL 7-18 creatinine, serum 1.00 mg/dL 0.60-1.30 alanine aminotransferase (SGPT), serum 41 U/L aspartate aminotransferase (SGOT), serum 17 U/L 15-37 calcium, serum 8.6 mg/dL 8.5-10.1 bilirubin, serum, total 0.30 mg/dL 0.00-1.00 cholesterol, serum 108 mg/dL 210-960 6596/12/31 triglyceride, serum, fasting 120 mg/dL 30-200 HDL [...] 5.0-8.5 Encounters Code Encounter Date Provider Facility CPT-13341 Level 3 Est. Patient 14:49:50 CDT Vishal Hui MD [facility] CPT-44669 Level 4 Est. Patient 18:41:46 CDT Neeraj Collins MD [facility] CPT-83066 Level 4 Est. Patient 09:18:38 APPLICATION PROJECT LEADER Vishal Hui MD [facility] CPT-22860 Level 3 Est. Patient 14:43:55 APPLICATION PROJECT LEADER Vishal Hui MD [facility] CPT-38886 Level 3 Est. Patient 15:26:33 APPLICATION PROJECT LEADER Sahara Rodriguez MD PhD [facility] CPT-45091 Level 3 Est. Patient 10:32:14 APPLICATION PROJECT LEADER Vishal Hui MD [facility] CPT-04031 Level 3 Est. Patient 15:12:52 APPLICATION PROJECT LEADER Vishal Hui MD [facility] CPT-37133 Level 4 Est. Patient 09:19:27 CDT Vishal Hui MD [facility] CPT-59633 Level 3 Est. Patient 15:53:00 CDT Renzo Thornton [facility] CPT-40131 Level 3 Est. Patient 15:50:30 CDT Renzo Thornton [facility] CPT-45947 Level 3 Est. Patient 16:55:24 CDT Vishal Hui MD [facility] Procedures Code Procedure Name Date Entry Date Standard Description CPT-37793 Sono transvag pelvis non OB uterus ovaries cervix 16:36: 57 CDT CPT-90716 LS spine comp w obliq 09:50:55 APPLICATION PROJECT LEADER CPT-33709 Abd compl w upright 09:50:55 APPLICATION PROJECT LEADER CPT-J1100 Decadron 4mg (Dexamethasone) 15:51:24 APPLICATION PROJECT LEADER CPT-J1030 Depo Medrol 40 mg (Methyl Prednisolone Acetate) 15:51: 24 APPLICATION PROJECT LEADER CPT-02955 Abx/Therapy Injection 15:51:24 APPLICATION PROJECT LEADER CPT-J1100 Decadron 4mg (Dexamethasone) 15:26:33 APPLICATION PROJECT LEADER CPT-J1030 Depo Medrol 40 mg (Methyl Prednisolone Acetate) 15:26: 33 APPLICATION PROJECT LEADER CPT-64887 Sono retroperitoneal complete kidneys and bladder 17:15: 30 CDT CPT-78033 Abd compl w upright 16:09:25 CDT CPT-J1100 Decadron 8mg (Dexamethasone) 17:07:57 CDT CPT-56878 Abx/Therapy Injection 17:07:57 CDT CPT-J1100 Decadron 8mg (Dexamethasone) 16:55:24 CDT CPT-57997 Chest 2V Frontal and Lat 16:32:44 CDT
--- OUTSIDE RECORDS SUMMARY | 2016-11-05 01:30 | XMS REPORT | Clinical Summary ---
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 Active Suzan Boo [...] Cervicalgia Preop exam V72.84 Active Suzan Rajeev ANTHROPOMETRIST Preoperative examination, unspecified Anxiety Disorder ICD-300.00 Inactive Vishal Hui MD Pneumonia, organism unspecified ICD-486 Inactive Vishal Hui MD Flank pain, right ICD-789.09 Inactive Vishal Hui MD G E R D ICD-530.81 Inactive Vishal Hui MD Health screening ICD-V70.0 Inactive Suzan Boo ANTHROPOMETRIST Sinus tachycardia ICD-427.89 Inactive Suzan Boo ANTHROPOMETRIST Smoker/tobacco use disorder-smoking cessation discussed ICD-305.1 Inactive [...] twice a day for 5 days TRIMETHOPRIM-SULFAMETHOXAZOLE 61373012165 Active Samantha WAGNERA Active MUPIROCIN 2 % OINT apply twice a day MUPIROCIN 79823915647 No Longer Active Suzan Boo APRN Active BACTRIM DS 800-160 MG TABS 1 twice a day SULFAMETHOXAZOLE-TRIMETHOPRIM 89842037904 No Longer Active Suzan Boo APRN Active DIFLUCAN 150 MG TABS 1 by mouth for yeast FLUCONAZOLE 27593663489 No Longer Active Suzan Boo APRN Active AMITIZA 8 MCG ORAL CAPS 1 capsule twice daily LUBIPROSTONE 41346592175 Active Sheila Calderon LPN Active LINZESS 290 MCG ORAL CAPS 1 tab 30 min prior to first meal each day. LINACLOTIDE 85325875782 No Longer Active Sheila Calderon LPN Active AMITIZA 8 MCG ORAL CAPS 1 tab BID LUBIPROSTONE 12103106283 No Longer Active Lynda Xiao LPN Active LACTULOSE 10 GM/15ML ORAL SOLN 30mL oral BID for IBS-C LACTULOSE 98241272732 Active Suzan Boo APRN Active TESSALON PERLES 100 MG CAPS 1 three times a day as needed for cough BENZONATATE 54892389730 No Longer Active Suzan Boo APRN Active BACTRIM DS 800-160 MG TABS 1 twice a day SULFAMETHOXAZOLE-TRIMETHOPRIM 92805423083 No Longer Active Suzan Boo APRN Active DIFLUCAN 150 MG TABS 1 by mouth for yeast FLUCONAZOLE 59744683474 No Longer Active Suzan Boo APRN Active EQ NICOTINE 21 MG/24HR TRANS PT24 Apply daily to stop smoking NICOTINE 64536413955 No Longer Active Suzan Boo APRN Active PREDNISONE 10 MG TABS 2 daily for 5 days then 1 daily for 5 days PREDNISONE 44163952958 No Longer Active Suzan Boo APRN Active LEVAQUIN 500 MG TABS 1 daily for infection LEVOFLOXACIN 43019109269 No Longer Active Suzan Boo APRN Active TROPICAMIDE 0.5 % OPHTH SOLN 1 drop PRN eye spasms TROPICAMIDE 83733068678 No Longer Active Suzan oBo APRN Active PREDNISONE 20 MG TAB 1 tablet daily x 4 days PREDNISONE 53344056908 No Longer Active Suzan Boo APRN Active ACETAMINOPHEN-CODEINE 120-12 MG/5ML SOLN 5 ml by mouth every 4-6 hours if needed for cough ACETAMINOPHEN-CODEINE 40220431603 No Longer Active Suzan Boo APRN Active KEFLEX 500 MG CAP 1 po qid CEPHALEXIN 79900251886 No Longer Active Suzan Boo APRN Active FLOVENT HFA 110 MCG/ACT AERO 2 puffs inhaled b.i.d. FLUTICASONE PROPIONATE HFA 32362407846 Active Renzo Thornton DO Active RISPERDAL 4 MG ORAL TABS 1 tab at bedtime RISPERIDONE 98150491840 Active Samantha WAGNERA Active ZOFRAN 4 MG TABS 1 po q6hr PRN Nausea ONDANSETRON HCL No Longer Active Suzan Boo APRN Active FLUTICASONE PROPIONATE 50 MCG/ACT SUSP 2 sprays each nostril daily before bed. FLUTICASONE PROPIONATE 05579936956 No Longer Active Suzan Boo APRN Active ASPIRIN 325 MG ORAL TABS 1 tab q.d ASPIRIN 97579005080 No Longer Active Suzan Boo APRN Active HALOPERIDOL 10 MG ORAL TABS 1 tab q.d HALOPERIDOL 32578168371 No Longer Active Suzan Boo APRN Active GUAIFENESIN-CODEINE 100-10 MG/5ML SYRP 5ml every 4 to 6 hours as needed for cough GUAIFENESIN-CODEINE 57092055764 No Longer Active Suzan Boo APRN Active ZITHROMAX Z-EARNEST 250 MG TABS 2 today and then 1 daily for 4 days AZITHROMYCIN 62874111025 No Longer Active Suzan Boo APRN Active CLONAZEPAM 1 MG ORAL TABS 1 twice a day and an additional 1 tablet every other day as needed for pseudoseizures or anxiety CLONAZEPAM 08588670604 Active Suzan Boo APRN Active HYDROCODONE-ACETAMINOPHEN 5-325 MG ORAL TABS 1 tab two times a day HYDROCODONE-ACETAMINOPHEN 03325512138 No Longer Active Ahmet Carbajal MD Active LAMICTAL 100 MG ORAL TABS 1 tab 2 times qd. LAMOTRIGINE 37709980819 Active Ahmet Carbajal MD Active PREDNISONE 20 MG TABS 2 daily for 5 days then 1 daily for 5 days PREDNISONE 98128017218 No Longer Active Ahmet Carbajal MD Active FLUTICASONE PROPIONATE 50 MCG/ACT SUSP 1 to 2 sprays each nostril daily for allergies FLUTICASONE PROPIONATE 47413664814 Active Tila Valenzuela Active BENADRYL 25 MG CAP 4 po at bedtime for insomnia DIPHENHYDRAMINE HCL 64476004914 No Longer Active Ahmet Carbajal MD Active ADVAIR DISKUS 250-50 MCG/DOSE INH AEPB 1 puff twice a day for asthma FLUTICASONE-SALMETEROL 83874091252 No Longer Active Ahmet Carbajal MD Active KLONOPIN 1 MG ORAL TABS 1 tab po TID CLONAZEPAM 58093692561 No Longer Active Ahmet Carbajal MD Active ABILIFY MAINTENA 400 MG IM SUSR 400mg injection every 26 days ARIPIPRAZOLE 06941403996 No Longer Active Ahmet Carbajal MD Active TRAMADOL HCL 50 MG TABS 1/2-1 tab TID PRN TRAMADOL HCL 42643881058 No Longer Active Ahmet Carbajal MD Active BACTRIM DS 800-160 MG TABS 1 twice a day SULFAMETHOXAZOLE- TRIMETHOPRIM 27067759184 No Longer Active Ahmet Carbajal MD Active PROAIR HFA 108 (90 BASE) MCG/ACT AERS 2 puffs four times a day as needed 2015 ALBUTEROL SULFATE 70118901566 Active Honey Hinton ANTHROPOMETRIST Active MONISTAT 7 COMBO PACK WOODROW 100 & 2 MG-% (9GM) VAG KIT 1 applicatorful per vagina q pm x 7 MICONAZOLE NITRATE 86952939974 No Longer Active Ahmet Carbajal MD Active FLAGYL 500 MG TAB 1 tablet by mouth bid METRONIDAZOLE 63855867119 No Longer Active Ahmet Carbajal MD Active OXYCODONE HCL ER 10 MG ORAL T12A 1/2 tab by mouth every 4 hours prn OXYCODONE HCL 10722448794 No Longer Active Ahmet Carbajal MD Active METHYLPREDNISOLONE 4 MG ORAL TABS po daily METHYLPREDNISOLONE 12571448050 No Longer Active Ahmet Carbajal MD Active LEVOFLOXACIN 500 MG ORAL TABS po daily LEVOFLOXACIN 15350938623 No Longer Active Ahmet Carbajal MD Active VIIBRYD 10 MG ORAL TABS Take 1 tablet once a day VILAZODONE HCL 14555968397 No Longer Active Ahmet Carbajal MD Active TOPAMAX 50 MG ORAL TABS 1 tab twice daily TOPIRAMATE 69166226365 No Longer Active Ahmet Carbajal MD Active DICLOFENAC SODIUM 50 MG TBEC 1 tablet by mouth four times daily PRN Pain 2015 DICLOFENAC SODIUM 52621884718 No Longer Active Ahmet Carbajal MD Active ADZENYS XR-ODT 6.3 MG ORAL TBED 1 tab po daily for ADHD AMPHETAMINE 36779550786 No Longer Active Ahmet Carbajal MD Active CHANTIX 1 MG TABS 1 twice a day to help quit smoking VARENICLINE TARTRATE 78728477328 No Longer Active Dipika Burgos MD Active CHANTIX STARTING MONTH EARNEST 0.5 MG X 11 & 1 MG X 42 TABS take as directed 2015 VARENICLINE TARTRATE 86887052721 No Longer Active Dipika Burgos MD Active TESSALON PERLES 100 MG CAP 1 to 2 tablets by mouth 3 times daily as needed for cough BENZONATATE 16716293140 No Longer Active Luigi Martínez APRN Active IMITREX 50 MG ORAL TABS 0.5 po x 1 PRN Headache. May repeat dose x 1 in 2 hours if needed SUMATRIPTAN SUCCINATE 43512618341 Active Ahmet Carbajal MD Active HYDROCODONE-ACETAMINOPHEN 5-325 MG TABS 1 to 2 four times a day as needed for pain use until can be seen by specialist HYDROCODONE- ACETAMINOPHEN 23813174927 No Longer Active Vishal Hui MD Active PROAIR HFA 108 (90 BASE) MCG/ACT AERS 2 puffs four times a day as needed 2015 ALBUTEROL SULFATE 25394588576 No Longer Active Vishal Hui MD Active PREDNISONE 20 MG TABS 2 daily for 5 days then 1 daily for 5 days PREDNISONE 76771038130 No Longer Active Vishal Hui MD Active ZITHROMAX Z-EARNEST 250 MG TABS 2 today and then 1 daily for 4 days AZITHROMYCIN 14992937649 No Longer Active Vishal Hui MD Active DICLOFENAC POTASSIUM TABS Take 1 tablet twice a day (pt. is not sure of the dose.) DICLOFENAC POTASSIUM TABS 59599407917 No Longer Active Vishal Hui MD Active VERAPAMIL HCL ER 120 MG ORAL CR-TABS Take 1 tablet by mouth twice a day. VERAPAMIL HCL 47385797799 Active Vishal Hui MD Active FLAGYL 500 MG TAB 1 tablet by mouth bid METRONIDAZOLE 70387196754 No Longer Active Vishal Hui MD Active VALIUM 5 MG TAB Take 1-2 tablets daily DIAZEPAM 84450746981 No Longer Active Fabiola Johnson APRN Active METOPROLOL TARTRATE 25 MG ORAL TABS 1/2 tablet twice daily for heart rate and blood pressure METOPROLOL TARTRATE 41307042177 No Longer Active Fabiola Johnson APRN Active MIRALAX ORAL POWD 17GMS DAILY IN WATER POLYETHYLENE GLYCOL 3350 75348459054 Active TAMARA Casey Active MIRALAX PACK 1 po qd PRN Constipation POLYETHYLENE GLYCOL 3350 09045401376 No Longer Active Ahmet Carbajal MD Active MINIPRESS 2 MG CAPS 4 cap po at night PRAZOSIN HCL 87187129257 No Longer Active Ahmet Carbajal MD Active PIROXICAM 20 MG CAPS 1 cap po qd PRN Pain PIROXICAM 10536761031 No Longer Active Ahmet Carbajal MD Active TRAMADOL HCL 50 MG TABS 1-2 po TID PRN Pain TRAMADOL HCL 53605403730 No Longer Active Ahmet Carbajal MD Active METOPROLOL TARTRATE 50 MG TAB 1 po bid METOPROLOL TARTRATE 52527884028 No Longer Active Ahmet Carbajal MD Active ABILIFY 15 MG ORAL TABS 1 tab daily ARIPIPRAZOLE 15354304189 No Longer Active Ahmet Carbajal MD Active PROZAC 20 MG ORAL CAPS 1 tab daily FLUOXETINE HCL 01123497568 No Longer Active Ahmet Carbajal MD Active AMBIEN 5 MG ORAL TABS 1 tab at bedtime ZOLPIDEM TARTRATE 38021463466 No Longer Active Ahmet Carbajal MD Active PREDNISONE 20 MG TAB 2 tabs daily for 4 days, 1 tab daily for 4 days, 1/2 tab daily for 4 days PREDNISONE 73614945382 No Longer Active Ahmet Crabajal MD Active KEFLEX 500 MG CAP 1 po TID x 10 days CEPHALEXIN 53206377314 No Longer Active Vishal Hui MD Active SAPHRIS 5 MG SUBL 1 po bid ASENAPINE MALEATE 58351978021 No Longer Active Luigi Martínez APRN Active LATUDA 80 MG TABS Take one by mouth daily LURASIDONE HCL 65893041554 No Longer Active Luigi Martínez APRN Active AMLODIPINE BESYLATE 5 MG TABS 1 tablet by mouth daily AMLODIPINE BESYLATE 74590220149 No Longer Active Luigi Martínez APRN Active AMITRIPTYLINE HCL 100 MG TAB one at hs AMITRIPTYLINE HCL 47826953759 No Longer Active Vishal Hui MD Active TRAZODONE HCL 100 MG TAB take 1 at bedtime TRAZODONE HCL 01408080382 No Longer Active Vishal Hui MD Active VYVANSE 40 MG CAPS 1 daily, LISDEXAMFETAMINE DIMESYLATE 58354865605 No Longer Active Vishal Hui MD Active IBUPROFEN 600 MG TAB 1 po TID PRN IBUPROFEN 18557574285 No Longer Active Vishal Hui MD Active PROZAC 20 MG CAP Take one by mouth daily FLUOXETINE HCL 81577263744 No Longer Active Vishal Hui MD Active BACTRIM DS 800-160 MG TABS 1 pill by mouth twice daily SULFAMETHOXAZOLE-TRIMETHOPRIM 60169907311 No Longer Active Sahara Rodriguez MD PhD Active DIFLUCAN 150 MG TAB 1 tablet by mouth daily FLUCONAZOLE 83109660533 No Longer Active Vishal Hui MD Active TIZANIDINE HCL 4 MG TABS 1 po q6hr PRN Muscle Spasm/Back Pain TIZANIDINE HCL 22643777572 Active TAMARA Casey Active CLINDAMYCIN HCL 150 MG CAPS 1 four times a day CLINDAMYCIN HCL 71200407259 No Longer Active Neeraj Collins MD Active KEFLEX 500 MG ORAL CAPS 1 cap QID by mouth CEPHALEXIN 28062117031 No Longer Active Neeraj Collins MD Active DIFLUCAN 150 MG TABS 1 pill every other day x 2 doses FLUCONAZOLE 91489174790 No Longer Active Sahara Rodriguez MD PhD Active MELATONIN 3 MG CAPS 2 po q hs MELATONIN 69165020940 No Longer Active Sahara Rodriguez MD PhD Active MULTIVITAMINS CAPS Take one by mouth daily MULTIPLE VITAMIN 50676265741 No Longer Active Sahara Rodriguez MD PhD Active BACTRIM DS 800-160 MG TAB 1 tab by mouth twice daily TRIMETHOPRIM-SULFAMETHOXAZOLE 53860333899 No Longer Active Sahara Rodriguez MD PhD Active [facility] PROBIOTIC ORAL CHEW 2 daily po PROBIOTIC PRODUCT 38723192529 No Longer Active Sahara Rodriguez MD PhD Active BACTRIM DS 800-160 MG TABS 1 po BID x 7 days SULFAMETHOXAZOLE-TRIMETHOPRIM 12058330599 No Longer Active Vishal Hui MD Active CHANTIX STARTING MONTH EARNEST 0.5 MG X 11 & 1 MG X 42 TABS 0.5mg daily for 3 days , then 0.5mg BID for 4 days, then 1mg BID VARENICLINE TARTRATE 37460586059 No Longer Active TAMARA Gray Active VERAPAMIL HCL CR 120 MG TAB CR 1 po bid VERAPAMIL HCL 71865216064 No Longer Active Vishal Hui MD Active METOPROLOL SUCCINATE 50 MG TB24 1 tablet by mouth daily METOPROLOL SUCCINATE 60874744675 No Longer Active Vishal Hui MD Active SAPHRIS 10 MG SUBL 1 tab po bid ASENAPINE MALEATE 68350951197 No Longer Active Vishal Hui MD Active LISINOPRIL 20 MG TABS 1 tab po qd LISINOPRIL 39667007196 No Longer Active Vishal Hui MD Active LATUDA 20 MG TABS Take one by mouth daily LURASIDONE HCL 97974495769 No Longer Active Vishal Hui MD Active TRAZODONE HCL 50 MG TABS 1/2 tab po qd prn for anxiety TRAZODONE HCL 53218867207 No Longer Active Vishal Hui MD Active OMEPRAZOLE 20 MG TBEC 1 po q a.m. 30min prior to first food intake OMEPRAZOLE 00049114719 Active TAMARA Casey Active RANITIDINE HCL 150 MG CAPS 1 twice a day RANITIDINE HCL 22465307353 Active Lynda Xiao PROBE OPERATOR Active LINZESS 290 MCG CAPS Take one by mouth daily LINACLOTIDE 40770803894 No Longer Active Vishal Hui MD Active SAPHRIS 5 MG SUBL 1 tab po qd ASENAPINE MALEATE 05192095260 No Longer Active Vishal Hui MD Active ZALEPLON 10 MG CAPS 1 cap po every other night ZALEPLON 88350459378 No Longer Active Vishal Hui MD Active LYRICA 50 MG CAPS 1 tab po TID PREGABALIN 09412776512 No Longer Active Vishal Hui MD Active LORATADINE 10 MG TABS 1 tab po qd LORATADINE 94474177066 No Longer Active Vishal Hui MD Active VERAPAMIL HCL ER 180 MG CR-TABS 1 tab po bid VERAPAMIL HCL 17418816019 No Longer Active Vishal Hui MD Active MIRALAX POWD 1 capfull once daily POLYETHYLENE GLYCOL 3350 32444600134 No Longer Active Vishal Hui MD Active PREDNISONE 20 MG TABS 1 tab po qd PREDNISONE 11239551328 No Longer Active Renzo Thornton DO Active LEVOFLOXACIN 500 MG TABS 1 tab po qd LEVOFLOXACIN 69003041460 No Longer Active Rezno Thornton DO Active BUSPIRONE HCL 15 MG TABS 1 tab po TID BUSPIRONE HCL 81549288034 No Longer Active Renzo Thornton DO Active BENZTROPINE MESYLATE 1 MG TABS 1 tab po qd BENZTROPINE MESYLATE 62472218803 No Longer Active Renzo Thornton DO Active ATENOLOL 25 MG TABS 1 tab po qd ATENOLOL 15566789861 No Longer Active Renzo Thornton DO Active ESCITALOPRAM OXALATE 20 MG TABS 1 tab po qd ESCITALOPRAM OXALATE 39835411228 No Longer Active Renzo Thornton DO Active ADVAIR DISKUS 250-50 MCG/DOSE AEPB 1 puff BID FLUTICASONE-SALMETEROL 31682073755 No Longer Active Renzo Thornton DO Active PREDNISONE 20 MG TAB 2 tabs daily for 3 days, 1 tab daily for 3 days, 1/2 tab daily for 2 days PREDNISONE 12665805402 No Longer Active Vishal Hui MD Active CEFDINIR 300 MG CAPS by mouth twice a day CEFDINIR 34166119967 No Longer Active Vishal Hui MD Active LANSOPRAZOLE 30 MG CPDR 1 cap po qd LANSOPRAZOLE 80664545736 No Longer Active Vishal Hui MD Active BACLOFEN 20 MG TABS 1 tab po tid BACLOFEN 82708350996 No Longer Active Vishal Hui MD Active ADVAIR DISKUS 250-50 MCG/DOSE AEPB 1 puff BID ADVAIR DISKUS 250-50 MCG/DOSE AEPB FLUTICASONE-SALMETEROL Inactive ESCITALOPRAM OXALATE 20 MG TABS 1 tab po qd ESCITALOPRAM OXALATE 20 MG TABS 271548 ESCITALOPRAM OXALATE Inactive ATENOLOL 25 MG TABS 1 tab po qd ATENOLOL 25 MG TABS 976611 ATENOLOL Inactive BENZTROPINE MESYLATE 1 MG TABS 1 tab po qd BENZTROPINE MESYLATE 1 MG TABS 796039 BENZTROPINE MESYLATE Inactive BUSPIRONE HCL 15 MG TABS 1 tab po TID BUSPIRONE HCL 15 MG TABS 956645 BUSPIRONE HCL Inactive LEVOFLOXACIN 500 MG TABS 1 tab po qd LEVOFLOXACIN 500 MG TABS 982018 LEVOFLOXACIN Inactive PREDNISONE 20 MG TABS 1 tab po qd PREDNISONE 20 MG TABS 105899 PREDNISONE Inactive MIRALAX POWD 1 capfull once daily MIRALAX [facility] 690077 POLYETHYLENE GLYCOL 3350 Inactive VERAPAMIL HCL ER 180 MG CR-TABS 1 tab po bid VERAPAMIL HCL ER 180 MG CR-TABS VERAPAMIL HCL Inactive LORATADINE 10 MG TABS 1 tab po qd LORATADINE 10 MG TABS 596299 LORATADINE Inactive LYRICA 50 MG CAPS 1 tab po TID LYRICA 50 MG CAPS PREGABALIN Inactive ZALEPLON 10 MG CAPS 1 cap po every other night ZALEPLON 10 MG CAPS 700719 ZALEPLON Inactive SAPHRIS 5 MG SUBL 1 tab po qd SAPHRIS 5 MG SUBL ASENAPINE MALEATE Inactive TRAZODONE HCL 50 MG TABS 1/2 tab po qd prn for anxiety TRAZODONE HCL 50 MG TABS 473501 TRAZODONE HCL Inactive LATUDA 20 MG TABS Take one by mouth daily LATUDA 20 MG TABS LURASIDONE HCL Inactive LISINOPRIL 20 MG TABS 1 tab po qd LISINOPRIL 20 MG TABS 552118 LISINOPRIL Inactive SAPHRIS 10 MG SUBL 1 [...] twice daily BACTRIM DS 800-160 MG TAB 381598 TRIMETHOPRIM-SULFAMETHOXAZOLE Inactive MULTIVITAMINS CAPS Take one by mouth daily MULTIVITAMINS CAPS MULTIPLE VITAMIN Inactive MELATONIN 3 MG CAPS 2 po q hs MELATONIN 3 MG CAPS 286758 MELATONIN Inactive KEFLEX 500 MG ORAL CAPS 1 cap QID by mouth KEFLEX 500 MG ORAL CAPS 611841 CEPHALEXIN Inactive CLINDAMYCIN HCL 150 MG CAPS 1 four times a day CLINDAMYCIN HCL 150 MG CAPS 735315 CLINDAMYCIN HCL Inactive DIFLUCAN 150 MG TAB 1 tablet by mouth daily DIFLUCAN 150 MG TAB 798702 FLUCONAZOLE Inactive PROZAC 20 MG CAP Take one by mouth daily PROZAC 20 MG CAP 774358 FLUOXETINE HCL Inactive IBUPROFEN 600 MG TAB 1 po TID PRN IBUPROFEN 600 MG TAB 918708 IBUPROFEN Inactive VYVANSE 40 MG CAPS 1 daily, VYVANSE 40 MG CAPS LISDEXAMFETAMINE DIMESYLATE Inactive TRAZODONE HCL 100 MG TAB take 1 at bedtime TRAZODONE HCL 100 MG TAB 983759 TRAZODONE HCL Inactive AMITRIPTYLINE HCL 100 MG TAB one at hs AMITRIPTYLINE HCL 100 MG TAB 768788 AMITRIPTYLINE HCL Inactive AMLODIPINE BESYLATE 5 MG TABS 1 tablet by mouth daily AMLODIPINE BESYLATE 5 MG TABS 810404 AMLODIPINE BESYLATE Inactive LATUDA 80 MG TABS Take one by mouth daily LATUDA 80 MG TABS LURASIDONE HCL Inactive SAPHRIS 5 MG SUBL 1 po bid SAPHRIS 5 MG SUBL ASENAPINE MALEATE Inactive PREDNISONE 20 MG TAB 2 tabs daily for 4 days, 1 tab daily for 4 days, 1/2 tab daily for 4 days PREDNISONE 20 MG TAB 764275 PREDNISONE Inactive AMBIEN 5 MG ORAL TABS 1 tab at bedtime AMBIEN 5 MG ORAL TABS 714959 ZOLPIDEM TARTRATE Inactive PROZAC 20 MG ORAL CAPS 1 tab daily PROZAC 20 MG ORAL CAPS 680254 FLUOXETINE HCL Inactive ABILIFY 15 MG ORAL TABS 1 tab daily ABILIFY 15 MG ORAL TABS 322021 ARIPIPRAZOLE Inactive METOPROLOL TARTRATE 50 MG TAB 1 po bid METOPROLOL TARTRATE 50 MG TAB 610833 METOPROLOL TARTRATE Inactive TRAMADOL HCL 50 MG TABS 1-2 po TID PRN Pain TRAMADOL HCL 50 MG TABS 395119 TRAMADOL HCL Inactive PIROXICAM 20 MG CAPS 1 cap po qd PRN Pain PIROXICAM 20 MG CAPS 855824 PIROXICAM Inactive MINIPRESS 2 MG CAPS 4 cap po at night MINIPRESS 2 MG CAPS 835069 PRAZOSIN HCL Inactive MIRALAX PACK 1 po qd PRN Constipation MIRALAX PACK 377891 POLYETHYLENE GLYCOL 3350 Inactive METOPROLOL TARTRATE 25 MG ORAL TABS 1/2 tablet twice daily for heart rate and blood pressure METOPROLOL TARTRATE 25 MG ORAL TABS 875617 METOPROLOL TARTRATE Inactive VALIUM 5 MG TAB Take 1-2 tablets daily VALIUM 5 MG TAB 107212 DIAZEPAM Inactive FLAGYL 500 MG TAB 1 tablet by mouth bid FLAGYL 500 MG TAB 931505 METRONIDAZOLE Inactive DICLOFENAC POTASSIUM TABS Take 1 tablet twice a day (pt. is not sure of the dose.) DICLOFENAC POTASSIUM TABS DICLOFENAC POTASSIUM TABS Inactive ZITHROMAX Z-EARNEST 250 MG TABS 2 today and then 1 daily for 4 days ZITHROMAX Z-EARNEST 250 MG TABS 0500467 AZITHROMYCIN Inactive PREDNISONE 20 MG TABS 2 daily for 5 days then 1 daily for 5 days PREDNISONE 20 MG TABS 722548 PREDNISONE Inactive PROAIR HFA 108 (90 BASE) MCG/ACT AERS 2 puffs four times a day as needed 2015 PROAIR HFA 108 (90 BASE) MCG/ACT AERS ALBUTEROL SULFATE Inactive HYDROCODONE-ACETAMINOPHEN 5-325 MG TABS 1 to 2 four times a day as needed for pain use until can be seen by specialist HYDROCODONE- ACETAMINOPHEN 5-325 MG TABS 623963 HYDROCODONE-ACETAMINOPHEN Inactive TESSALON PERLES 100 MG CAP 1 to 2 tablets by mouth 3 times daily as needed for cough TESSALON PERLES 100 MG CAP 397621 BENZONATATE Inactive CHANTIX STARTING MONTH EARNEST 0.5 [...] Pain 2015 DICLOFENAC SODIUM 50 MG TBEC 653482 DICLOFENAC SODIUM Inactive TOPAMAX 50 MG ORAL TABS 1 tab twice daily TOPAMAX 50 MG ORAL TABS 950216 TOPIRAMATE Inactive VIIBRYD 10 MG ORAL TABS Take 1 tablet once a day VIIBRYD 10 MG ORAL TABS VILAZODONE HCL Inactive LEVOFLOXACIN 500 MG ORAL TABS po daily LEVOFLOXACIN 500 MG ORAL TABS 706350 LEVOFLOXACIN Inactive METHYLPREDNISOLONE 4 MG ORAL TABS po daily METHYLPREDNISOLONE 4 MG ORAL TABS 214578 METHYLPREDNISOLONE Inactive OXYCODONE HCL ER 10 MG ORAL T12A 1/2 tab by mouth every 4 hours prn OXYCODONE HCL ER 10 MG ORAL T12A OXYCODONE HCL Inactive FLAGYL 500 MG TAB 1 tablet by mouth bid FLAGYL 500 MG TAB 561349 METRONIDAZOLE Inactive MONISTAT 7 COMBO PACK WOODROW 100 & 2 MG-% (9GM) VAG KIT 1 applicatorful per vagina q pm x 7 MONISTAT 7 COMBO PACK WOODROW 100 & 2 MG-% (9GM) VAG KIT MICONAZOLE NITRATE Inactive BACTRIM DS 800-160 MG TABS 1 twice a day BACTRIM DS 800-160 MG TABS 734983 SULFAMETHOXAZOLE-TRIMETHOPRIM Inactive TRAMADOL HCL 50 MG TABS 1/2-1 tab TID PRN TRAMADOL HCL 50 MG TABS 470049 TRAMADOL HCL Inactive ABILIFY MAINTENA 400 MG IM SUSR 400mg injection every 26 days ABILIFY MAINTENA 400 MG IM SUSR ARIPIPRAZOLE Inactive KLONOPIN 1 MG ORAL TABS 1 tab po TID KLONOPIN 1 MG ORAL TABS 915801 CLONAZEPAM Inactive ADVAIR DISKUS 250-50 MCG/DOSE INH AEPB 1 puff twice a day for asthma ADVAIR DISKUS 250-50 MCG/DOSE INH AEPB FLUTICASONE- SALMETEROL Inactive BENADRYL 25 MG CAP 4 po at bedtime for insomnia BENADRYL 25 MG CAP DIPHENHYDRAMINE HCL Inactive PREDNISONE 20 MG TABS 2 daily for 5 days then 1 daily for 5 days PREDNISONE 20 MG TABS 199751 PREDNISONE Inactive HYDROCODONE-ACETAMINOPHEN 5-325 MG ORAL TABS 1 tab two times a day HYDROCODONE-ACETAMINOPHEN 5-325 MG ORAL TABS 221554 HYDROCODONE-ACETAMINOPHEN Inactive ZITHROMAX Z-EARNEST 250 MG TABS 2 today and then 1 daily for 4 days ZITHROMAX Z-EARNEST 250 MG TABS 7567894 AZITHROMYCIN Inactive GUAIFENESIN-CODEINE 100-10 MG/5ML SYRP 5ml every 4 to 6 hours as needed for cough GUAIFENESIN-CODEINE 100-10 MG/5ML SYRP 577491 GUAIFENESIN-CODEINE Inactive HALOPERIDOL 10 MG ORAL TABS 1 tab q.d HALOPERIDOL 10 MG ORAL TABS 937683 HALOPERIDOL Inactive ASPIRIN 325 MG ORAL TABS 1 tab q.d ASPIRIN 325 MG ORAL TABS 888274 ASPIRIN Inactive FLUTICASONE PROPIONATE 50 MCG/ACT SUSP 2 sprays each nostril daily before bed. FLUTICASONE PROPIONATE 50 MCG/ACT SUSP 0680196 FLUTICASONE PROPIONATE Inactive ZOFRAN 4 MG TABS 1 po q6hr PRN Nausea ZOFRAN 4 MG TABS 317996 ONDANSETRON HCL Inactive KEFLEX 500 MG CAP 1 po qid KEFLEX 500 MG CAP 895112 CEPHALEXIN Inactive ACETAMINOPHEN-CODEINE 120-12 MG/5ML SOLN 5 ml by mouth every 4-6 hours if needed for cough ACETAMINOPHEN-CODEINE 120-12 MG/5ML SOLN 966820 ACETAMINOPHEN-CODEINE Inactive PREDNISONE 20 MG TAB 1 tablet daily x 4 days PREDNISONE 20 MG TAB 826215 PREDNISONE Inactive TROPICAMIDE 0.5 % OPHTH SOLN 1 drop PRN eye spasms TROPICAMIDE 0.5 % OPHTH SOLN 794028 TROPICAMIDE Inactive LEVAQUIN 500 MG TABS 1 daily for infection LEVAQUIN 500 MG TABS 248462 LEVOFLOXACIN Inactive PREDNISONE 10 MG TABS 2 daily for 5 days then 1 daily for 5 days PREDNISONE 10 MG TABS 095634 PREDNISONE Inactive EQ NICOTINE 21 MG/24HR TRANS [...] for cough TESSALON PERLES 100 MG CAPS 258357 BENZONATATE Inactive AMITIZA 8 MCG ORAL CAPS [...] twice a day MUPIROCIN 2 % OINT 948562 MUPIROCIN Inactive CEFDINIR 300 MG CAPS by mouth twice a day CEFDINIR 300 MG CAPS 932859 CEFDINIR Inactive PREDNISONE 20 MG TAB 2 tabs daily for 3 days, 1 tab daily for 3 days, 1/2 tab daily for 2 days PREDNISONE 20 MG TAB 200209 PREDNISONE Inactive BACTRIM DS 800-160 MG TABS [...] x 10 days KEFLEX 500 MG CAP 046085 CEPHALEXIN Inactive Advance Directives Directive Description Start [...] CBC - Hematology mean corpuscular hemoglobin, RBC 31.7 pg 27.0-31.2 mean corpuscular hemoglobin concentration, RBC 34.8 G/DL % 31.8- 35.4 red blood cell distribution width 12.0 % 13.0-18.0 platelet count 381 10^3/MM^3 10*3/mm3 932-654 3391/06/28 leukocyte count, blood 11.0 10^3/MM^3 10*3/mm3 4.6-10.2 erythrocyte (RBC) count 4.65 10^6/MM^3 10*6/mm3 3.80-5.80 hemoglobin, blood 14.7 g/dL 12.0-16.0 hematocrit, blood 42.4 % 37.0-47.0 mean corpuscular volume, RBC 91 fL 80-97 Lab Report: CBC (INCLUDES DIFF/PLT)/6399, COMPREHENSIVE METABOLIC PANEL, ... - Hematology erythrocyte (RBC) count 4.46 MILLION/UL 10*6/mm3 3.80-5.10 hemoglobin, blood 13.3 g/dL 11.7-15.5 hematocrit, blood 40.7 % 35.0-45.0 mean corpuscular volume, RBC 91.4 fL 80.0-100.0 mean corpuscular hemoglobin, RBC 29.9 pg 27.0-33.0 hematocrit, blood 39.8 % 35.0-45.0 mean corpuscular volume, RBC 92.5 fL 80.0-100.0 mean corpuscular hemoglobin, RBC 31.4 pg 27.0-33.0 leukocyte count, blood 8.4 THOUSAND/UL 10*3/mm3 3.8-10.8 erythrocyte (RBC) count 4.30 MILLION/UL 10*6/mm3 3.80-5.10 leukocyte count, blood 16.6 THOUSAND/UL 10*3/mm3 3.8-10.8 mean corpuscular hemoglobin concentration, RBC 32.8 G/DL % 32.0- 36.0 red blood cell distribution width 12.9 % 11.0-15.0 platelet count 443 THOUSAND/UL 10*3/mm3 840-949 7791/03/01 mean platelet volume 8.2 fL 7.5-12.5 hemoglobin, blood 13.5 g/dL 11.7-15.5 mean corpuscular hemoglobin concentration, RBC 33.9 G/DL % 32.0- 36.0 red blood cell distribution width 13.3 % 11.0-15.0 platelet count 349 THOUSAND/UL 10*3/mm3 497-546 9514/04/12 mean platelet volume 8.4 fL 7.5-12.5 Lab Report: CBC, Thyroid Stimulating Hormone (L) - Chemistry TSH 0.62 m[iU]/mL 0.36-3.74 Lab Report: CBC, Thyroid Stimulating Hormone (L) - Hematology platelet count 369 10^3/MM^3 10*3/mm3 259-412 3241/12/21 mean corpuscular volume, RBC 94 fL 80-97 mean corpuscular hemoglobin concentration, RBC 34.1 G/DL % 31.8- 35.4 red blood cell distribution width 11.8 % 11.6-14.8 mean corpuscular hemoglobin, RBC 32.1 pg 27.0-31.2 leukocyte count, blood 11.1 10^3/MM^3 10*3/mm3 4.6-10.2 erythrocyte (RBC) count 4.78 10^6/MM^3 10*6/mm3 4.04-5.48 hemoglobin, blood 15.3 g/dL 12.0-16.0 hematocrit, blood 45.0 % 36.0-46.0 Lab Report: Chlamydia/GC APTIMA/15160 - Lab chlamydia DNA probe NOT DETECTED NOT DETECTED Lab Report: Chlamydia/GC APTIMA/04424 - Microbiology Neisseria gonorrhoeae DNA probe NOT DETECTED NOT DETECTED Lab Report: Chlamydia/GC APTIMA/61169, Urinalysis, Complete, with Reflex ... - Lab chlamydia DNA probe NOT DETECTED NOT DETECTED Lab Report: Chlamydia/GC APTIMA/24397, Urinalysis, Complete, with Reflex ... - Microbiology Neisseria gonorrhoeae DNA probe NOT DETECTED NOT DETECTED Lab Report: Chlamydia/GC APTIMA/22866, Urinalysis, Complete, with Reflex ... - Urinalysis microalbumin/total urine volume 2 mg/L Units converted. See lab report for original value. microalbumin/creatinine ratio, urine 9 MCG/MG CREAT mg/L <30 Lab Report: Comp. Metabolic Panel - Chemistry bilirubin, serum, total 0.30 mg/dL 0.00-1.00 blood glucose 80 mg/dL 65-110 chloride, serum 103 mmol/L 98-107 potassium, serum 5.0 mmol/L 3.5-5.2 carbon dioxide, venous blood 33.7 mmol/L 21.0-32.0 sodium, serum 140 mmol/L 961-527 4925/08/08 calcium, serum 9.7 mg/dL 8.5-10.1 aspartate aminotransferase (SGOT), serum 29 U/L 15-37 alanine aminotransferase (SGPT), serum 54 U/L 12-78 creatinine, serum 0.88 mg/dL 0.55-1.30 urea nitrogen, blood 13 mg/dL 7-18 carbon dioxide, venous blood 23.8 mmol/L 21.0-32.0 potassium, serum 3.8 mmol/L 3.5-5.2 chloride, serum 104 mmol/L 98-107 blood glucose 78 mg/dL 65-110 urea nitrogen, blood 12 mg/dL 7-18 sodium, serum 140 mmol/L 011-182 4588/06/28 creatinine, serum 0.86 mg/dL 0.55-1.30 alanine aminotransferase [...] 5.0-8.5 Encounters Code Encounter Date Provider Facility CPT-29213 Level 3 Est. Patient 15:55:20 CDT Suzan Boo [facility] CPT-25436 Level 4 Est. Patient 10:49:34 CDT Suzan Boo [facility] CPT-94846 Level 3 Est. Patient 10:00:25 CDT Suzan Boo [facility] CPT-87106 Level 3 Est. Patient 10:29:30 CDT Suzan Boo [facility] CPT-29458 Level 3 Est. Patient 11:04:38 CDT Renzo Thornton [facility] CPT-68740 Level 3 Est. 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 Patient 15:28:23 RAILROAD CAR LOADER Suzan Boo [facility] CPT-82881 Level 4 Est. Patient 10:20:54 RAILROAD CAR LOADER Suzan Boo [facility] CPT-12458 Level 3 Est. Patient 11:47:37 RAILROAD CAR LOADER Ahmet Carbajal MD [facility] CPT-73652 Level 3 Est. Patient 10:40:11 RAILROAD CAR LOADER Ahmet Carbajal MD [facility] CPT-85037 Level 3 Est. Patient 15:07:06 RAILROAD CAR LOADER Neeraj Collins MD [facility] CPT-54557 Level 4 Est. Patient 14:45:00 RAILROAD CAR LOADER Ahmet Carbajal MD [facility] CPT-76848 Level 3 Est. Patient 13:59:59 CDT Luigi Martínez [facility] CPT-85758 Level 3 Est. Patient 18:18:53 CDT Neeraj Collins MD [facility] CPT-31047 Level 3 Est. Patient 15:50:44 CDT Vishal Hui MD [facility] CPT-22456 Level 3 Est. Patient 11:36:17 CDT Ahmet Carbajal MD [facility] CPT-15002 Level 3 Est. Patient 13:29:16 CDT Vishal Hui MD [facility] CPT-13758 Level 3 Est. Patient 14:27:52 CDT Neeraj Collins MD [facility] CPT-31444 Level 3 Est. Patient 08:56:03 CDT Luigi Martínez [facility] CPT-44417 Level 4 Est. Patient 12:11:48 CDT Fabiola Johnson [facility] CPT-69846 Level 3 New Patient 16:53:37 CDT Albert Caldera MD [facility] CPT-24912 Level 3 Est. Patient 11:25:49 CDT Renzo Thornton DO [facility] CPT-03782 Level 3 Est. Patient 15:22:01 CDT Ahmet Carbajal MD [facility] CPT-53169 Level 4 Est. Patient 09:00:51 RAILROAD CAR LOADER Vishal Hui MD [facility] CPT-52097 Level 3 Est. Patient 11:37:33 RAILROAD CAR LOADER Vishal Hui [facility] CPT-65242 Level 3 Est. Patient 08:41:09 RAILROAD CAR LOADER Vishal Hui MD [facility] CPT-95984 Level 4 Est. Patient 10:19:35 RAILROAD CAR LOADER Vishal Hui MD [facility] CPT-00111 Level 3 Est. Patient 13:35:45 CDT Vishal Hui MD [facility] CPT-90327 Level 4 Est. Patient 10:08:37 CDT Vishal Hui MD [facility] CPT-23416 Level 3 Est. Patient 11:22:10 CDT Vishal Hui MD [facility] CPT-93235 Level 3 Est. Patient 11:03:32 CDT Sahara Rodriguez MD [facility]-22952 Level 3 Est. Patient 09:41:35 CDT Vishal Hui MD [facility]-80060 Level 3 Est. Patient 12:00:41 CDT Neeraj Collins MD [facility] CPT-04162 Level 3 Est. Patient 09:16:24 CDT Vishal Hui MD [facility]-04489 Level 4 Est. Patient 13:59:09 CDT Neeraj Collins MD [facility]-93435 Level 3 Est. Patient 15:19:43 CDT Renzo Thornton DO [facility] CPT-15538 Level 3 Est. Patient 18:10:26 CDT Sahara Rodriguez MD [facility]-13139 Level 3 Est. Patient 14:49:50 CDT Vishal Hui MD [facility]-98743 Level 4 Est. Patient 18:41:46 CDT Neeraj Collins MD [facility]-91071 Level 4 Est. Patient 09:18:38 RAILROAD CAR LOADER Vishal Hui MD [facility] CPT-16655 Level 3 Est. Patient 14:43:55 RAILROAD CAR LOADER Vishal Hui MD [facility] CPT-38854 Level 3 Est. Patient 15:26:33 RAILROAD CAR LOADER Sahara Rodriguez MD PhD [facility] CPT-81813 Level 3 Est. Patient 10:32:14 RAILROAD CAR LOADER Vishal Hui MD [facility] CPT-27365 Level 3 Est. Patient 15:12:52 RAILROAD CAR LOADER Vishal Hui MD [facility] CPT-40574 Level 4 Est. Patient 09:19:27 CDT Vishal Hui MD [facility] CPT-06021 Level 3 Est. Patient 15:53:00 CDT Renzo Thornton [facility] CPT-14195 Level 3 Est. Patient 15:50:30 CDT Renzo Thornton [facility] CPT-21711 Level 3 Est. 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 CPT-G0439 [facility] Annual Wellness Exam 09:30:58 RAILROAD CAR LOADER CPT-95080 TSH - LAB USE ONLY 08:50:26 RAILROAD CAR LOADER CPT-18426 CBC - LAB USE ONLY 08:50:26 RAILROAD CAR LOADER CPT-57628 Venipuncture Draw Fee 08:50:26 RAILROAD CAR LOADER CPT-36684 Abx/Therapy Injection 17:34:30 RAILROAD CAR LOADER CPT-18502 Nexplanon Removal with Reinsertion 14:09:32 CDT CPT-J7307 Nexplanon (Implant) 14:09:32 CDT CPT-OV Office Visit 14:09:32 CDT CPT-53499 UA w micro - LAB USE ONLY 16:21:13 CDT CPT-89309 Wet Mount - LAB USE ONLY 16:21:13 CDT CPT-68743 First Vx - Ix admin for Medicare patients 14:37:47 CDT CPT-73050 Fluzone Preservative Free Intramuscular Suspension 14:37 :47 CDT CPT-86004 Abx/Therapy Injection 13:54:22 CDT CPT-92827 Abx/Therapy Injection 08:47:09 CDT CPT-27002 Abx/Therapy Injection 13:29:56 CDT CPT-59137 Abx/Therapy Injection 08:36:16 CDT CPT-13911 Wet [place] - LAB USE ONLY 17:44:58 CDT CPT-12983 UA w micro - LAB USE ONLY 17:44:58 CDT CPT-77122 CMP - LAB USE ONLY 17:44:58 CDT CPT-92261 Venipuncture Draw Fee 17:44:58 CDT CPT-60448 Cervical Min 4V - XRAY USE ONLY 09:01:40 CDT CPT-69023 Chest 2V Frontal and Lat - XRAY USE ONLY 11:06:31 CDT CPT-75980 EKG Trac and Interp - XRAY USE ONLY 11:31:43 CDT 08/26 CPT-J3420 Vitamin B12 1000mcg (Cyanocobalamin) 08:10:26 RAILROAD CAR LOADER 04/12 CPT-80245 Abx/Therapy Injection 08:10:26 RAILROAD CAR LOADER CPT-G0438 Initial Annual Wellness Exam 19:01:01 RAILROAD CAR LOADER CPT-J3420 Vitamin B12 1000mcg (Cyanocobalamin) 16:57:46 CDT 08/14 CPT-97355 Recombivax HB Injection Suspension 5 MCG/0.5ML 08:37:50 RAILROAD CAR LOADER CPT-63886 Immunization Single Admin 08:37:50 RAILROAD CAR LOADER CPT-J3420 Vitamin B12 1000mcg (Cyanocobalamin) 08:32:16 RAILROAD CAR LOADER 03/11 CPT-99515 Abx/Therapy Injection 08:32:16 RAILROAD CAR LOADER CPT-87986 Chest 2V Frontal and Lat 11:46:38 RAILROAD CAR LOADER CPT-25574 Venipuncture Draw Fee 09:12:45 RAILROAD CAR LOADER CPT-J3420 Vitamin B12 1000mcg (Cyanocobalamin) 08:50:15 RAILROAD CAR LOADER 02/08 CPT-05666 Abx/Therapy Injection 08:50:15 RAILROAD CAR LOADER CPT-Cryo Cryotherapy 10:19:35 RAILROAD CAR LOADER CPT-000 Give Appropriate Flu Vaccine 09:22:16 CDT CPT-J3420 Vitamin B12 1000mcg (Cyanocobalamin) 19:08:57 CDT 01/11 CPT-73447 Abx/Therapy Injection 19:08:57 CDT CPT-J3420 Vitamin B12 1000mcg (Cyanocobalamin) 08:19:08 CDT 12/11 CPT-47242 Abx/Therapy Injection 08:19:08 CDT CPT-J3420 Vitamin B12 1000mcg (Cyanocobalamin) 14:48:00 CDT 11/09 CPT-30217 Abx/Therapy Injection 14:47:59 CDT CPT-J3420 Vitamin B12 1000mcg (Cyanocobalamin) 08:34:04 CDT 10/09 CPT-39697 Abx/Therapy Injection 08:34:04 CDT CPT-J3420 Vitamin B12 1000mcg (Cyanocobalamin) 09:18:52 CDT 09/11 CPT-90915 Abx/Therapy Injection 09:18:52 CDT CPT-J3420 Vitamin B12 1000mcg (Cyanocobalamin) 08:35:44 CDT 09/04 CPT-40223 Abx/Therapy Injection 08:35:44 CDT CPT-30915 Immunization Single Admin 11:07:16 CDT CPT-59246 Hepatitis B adult IM 11:07:16 CDT CPT-J3420 Vitamin B12 1000mcg (Cyanocobalamin) 11:00:49 CDT 08/28 CPT-J1040 Depo Medrol 80 mg (Methyl Prednisolone Acetate) 11:00: 49 CDT CPT-56707 Abx/Therapy Injection 11:00:49 CDT CPT-J1040 Depo Medrol 80 mg (Methyl Prednisolone Acetate) 09:16: 23 CDT CPT-J3420 Vitamin B12 1000mcg (Cyanocobalamin) 08:27:05 CDT 08/20 CPT-78661 Abx/Therapy Injection 08:27:05 CDT CPT-06174 Recombivax HB Injection Suspension 5 MCG/0.5ML 10:00:41 CDT CPT-80809 Administration single or combination vaccine inc oral 10 :00:41 CDT CPT-46916 Sono transvag pelvis non OB uterus ovaries cervix 16:36: 57 CDT CPT-38391 LS spine comp w obliq 09:50:55 RAILROAD CAR LOADER CPT-70766 Abd compl w upright 09:50:55 RAILROAD CAR LOADER CPT-J1100 Decadron 4mg (Dexamethasone) 15:51:24 RAILROAD CAR LOADER CPT-J1030 Depo Medrol 40 mg (Methyl Prednisolone Acetate) 15:51: 24 RAILROAD CAR LOADER CPT-42262 Abx/Therapy Injection 15:51:24 RAILROAD CAR LOADER CPT-J1100 Decadron 4mg (Dexamethasone) 15:26:33 RAILROAD CAR LOADER CPT-J1030 Depo Medrol 40 mg (Methyl Prednisolone Acetate) 15:26: 33 RAILROAD CAR LOADER CPT-69611 Sono retroperitoneal complete kidneys and bladder 17:15: 30 CDT CPT-70077 Abd compl w upright 16:09:25 CDT CPT-J1100 Decadron 8mg (Dexamethasone) 17:07:57 CDT CPT-52810 Abx/Therapy Injection 17:07:57 CDT CPT-J1100 Decadron 8mg (Dexamethasone) 16:55:24 CDT CPT-07889 Chest 2V Frontal and Lat 16:32:44 CDT
--- OUTSIDE RECORDS SUMMARY | 2016-11-05 01:31 | XMS REPORT | Clinical Summary ---
Author Author Admin, E Organization [employer] Address Unknown Phone Unavailable Allergies, Adverse Reactions, [...] medical examination at a health care facility Flank pain, right ICD-789.09 Inactive Vishal Hui [...] ORAL CHEW 2 daily po PROBIOTIC PRODUCT 31337351609 Active Jillina Frazell CCU NURSE Active IBUPROFEN 600 MG TAB 1 po TID PRN IBUPROFEN 53943502624 Active Jillina Frazell CCU NURSE Active BACTRIM DS 800-160 MG TAB 1 tab by mouth twice daily TRIMETHOPRIM-SULFAMETHOXAZOLE 19202451646 Active Neeraj Collins MD Active BACTRIM DS 800-160 MG TABS 1 po BID x 7 days SULFAMETHOXAZOLE-TRIMETHOPRIM 27419197686 No Longer Active Vishal Hui MD Active CHANTIX STARTING MONTH EARNEST 0.5 MG X 11 & 1 MG X 42 TABS 0.5mg daily for 3 days , then 0.5mg BID for 4 days, then 1mg BID VARENICLINE TARTRATE 83046879445 No Longer Active TAMARA Gray Active METOPROLOL TARTRATE 50 MG TAB 1 po bid METOPROLOL TARTRATE 72490554569 Active Vishal Hui MD Active TRAZODONE HCL 100 MG TAB take 1 at bedtime TRAZODONE HCL 29418003284 Active Vishal Hui MD Active AMLODIPINE BESYLATE 5 MG TABS 1 tablet by mouth daily AMLODIPINE BESYLATE 09473364304 Active Vishal Hui MD Active VERAPAMIL HCL CR 120 MG TAB CR 1 po bid VERAPAMIL HCL 44732328961 No Longer Active Vishal Hui MD Active METOPROLOL SUCCINATE 50 MG TB24 1 tablet by mouth daily METOPROLOL SUCCINATE 52187927635 No Longer Active Vishal Hui MD Active TRAMADOL HCL 50 MG TABS 1-2 po TID PRN Pain TRAMADOL HCL 11376481437 Active Vishal Hui MD Active SAPHRIS 5 MG SUBL 1 po bid ASENAPINE MALEATE 97337144313 Active Vishal Hui MD Active SAPHRIS 10 MG SUBL 1 tab po bid ASENAPINE MALEATE 72366855590 No Longer Active Vishal Hui MD Active LISINOPRIL 20 MG TABS 1 tab po qd LISINOPRIL 91155851799 No Longer Active Vishal Hui MD Active BENADRYL 25 MG CAP 2 po tid prn anxiety DIPHENHYDRAMINE HCL 83152599864 Active Vishal Hui MD Active LATUDA 80 MG TABS Take one by mouth daily LURASIDONE HCL 18615353795 Active Vishal Hui MD Active LATUDA 20 MG TABS Take one by mouth daily LURASIDONE HCL 16234901192 No Longer Active Vishal Hui MD Active TRAZODONE HCL 50 MG TABS 1/2 tab po qd prn for anxiety TRAZODONE HCL 80966950715 No Longer Active Vishal Hui MD Active PIROXICAM 20 MG CAPS 1 cap po qd PRN Pain PIROXICAM 39913071837 Active Vishal Hui MD Active OMEPRAZOLE 20 MG TBEC 1 po q a.m. 30min prior to first food intake OMEPRAZOLE 09848526454 Active Vishal Hui MD Active RANITIDINE HCL 150 MG CAPS 1 twice a day RANITIDINE HCL 26567798498 Active Vishal Hui MD Active MULTIVITAMINS CAPS Take one by mouth daily MULTIPLE VITAMIN 78614363360 Active Vishal Hui MD Active MELATONIN 3 MG CAPS 2 po q hs MELATONIN 59872651697 Active Vishal Hui MD Active PROZAC 20 MG CAP Take one by mouth daily FLUOXETINE HCL 07974417631 Active Vishal Hui MD Active LINZESS 290 MCG CAPS Take one by mouth daily LINACLOTIDE 92977883768 Active Vishal Hui MD Active SAPHRIS 5 MG SUBL 1 tab po qd ASENAPINE MALEATE 05306467011 No Longer Active Vishal Hui MD Active ZALEPLON 10 MG CAPS 1 cap po every other night ZALEPLON 32952586679 No Longer Active Vishal Hui MD Active LYRICA 50 MG CAPS 1 tab po TID PREGABALIN 42444052912 No Longer Active Vishal Hui MD Active LORATADINE 10 MG TABS 1 tab po qd LORATADINE 89529788608 No Longer Active Vishal Hui MD Active VERAPAMIL HCL ER 180 MG CR-TABS 1 tab po bid VERAPAMIL HCL 13960911486 No Longer Active Vishal Hui MD Active MIRALAX POWD 1 capfull once daily POLYETHYLENE GLYCOL 3350 39240154050 No Longer Active Vishal Hui MD Active PREDNISONE 20 MG TABS 1 tab po qd PREDNISONE 25921958280 No Longer Active Renzo Tohrnton DO Active LEVOFLOXACIN 500 MG TABS 1 tab po qd LEVOFLOXACIN 37891819149 No Longer Active Renzo Thornton DO Active BUSPIRONE HCL 15 MG TABS 1 tab po TID BUSPIRONE HCL 44676124020 No Longer Active Renzo Thornton DO Active BENZTROPINE MESYLATE 1 MG TABS 1 tab po qd BENZTROPINE MESYLATE 66825073906 No Longer Active Renzo Thornton DO Active ATENOLOL 25 MG TABS 1 tab po qd ATENOLOL 69653937781 No Longer Active Renzo Thornton DO Active ESCITALOPRAM OXALATE 20 MG TABS 1 tab po qd ESCITALOPRAM OXALATE 37608100290 No Longer Active Renzo Thornton DO Active ADVAIR DISKUS 250-50 MCG/DOSE AEPB 1 puff BID FLUTICASONE-SALMETEROL 81854766595 No Longer Active Renzo Thornton DO Active PREDNISONE 20 MG TAB 2 tabs daily for 3 days, 1 tab daily for 3 days, 1/2 tab daily for 2 days PREDNISONE 36657209869 No Longer Active Vishal Hui MD Active CEFDINIR 300 MG CAPS by mouth twice a day CEFDINIR 52174871762 No Longer Active Vishal Hui MD Active LANSOPRAZOLE 30 MG CPDR 1 cap po qd LANSOPRAZOLE 47199588332 No Longer Active Vishal Hui MD Active TOPAMAX 25 MG TABS 1 tab po bid TOPIRAMATE 08459568657 Active Vishal Hui MD Active MINIPRESS 2 MG CAPS 1 cap po at night PRAZOSIN HCL 30655880317 Active Vishal Hui MD Active BACLOFEN 20 MG TABS 1 tab po tid BACLOFEN 46454814454 Active Vishal Hui MD Active ADVAIR DISKUS 250-50 MCG/DOSE AEPB 1 puff BID ADVAIR DISKUS 250-50 MCG/DOSE AEPB FLUTICASONE-SALMETEROL Inactive ESCITALOPRAM OXALATE 20 MG TABS 1 tab po qd ESCITALOPRAM OXALATE 20 MG TABS 082882 ESCITALOPRAM OXALATE Inactive ATENOLOL 25 MG TABS 1 tab po qd ATENOLOL 25 MG TABS 006821 ATENOLOL Inactive BENZTROPINE MESYLATE 1 MG TABS 1 tab po qd BENZTROPINE MESYLATE 1 MG TABS 477662 BENZTROPINE MESYLATE Inactive BUSPIRONE HCL 15 MG TABS 1 tab po TID BUSPIRONE HCL 15 MG TABS 369025 BUSPIRONE HCL Inactive LEVOFLOXACIN 500 MG TABS 1 tab po qd LEVOFLOXACIN 500 MG TABS 389251 LEVOFLOXACIN Inactive PREDNISONE 20 MG TABS 1 tab po qd PREDNISONE 20 MG TABS 431184 PREDNISONE Inactive MIRALAX POWD 1 capfull once daily MIRALAX POWD 871592 POLYETHYLENE GLYCOL 3350 Inactive VERAPAMIL HCL ER 180 MG CR-TABS 1 tab po bid VERAPAMIL HCL ER 180 MG CR-TABS VERAPAMIL HCL Inactive LORATADINE 10 MG TABS 1 tab po qd LORATADINE 10 MG TABS 051316 LORATADINE Inactive LYRICA 50 MG CAPS 1 tab po TID LYRICA 50 MG CAPS PREGABALIN Inactive ZALEPLON 10 MG CAPS 1 cap po every other night ZALEPLON 10 MG CAPS 041146 ZALEPLON Inactive SAPHRIS 5 MG SUBL 1 tab po qd SAPHRIS 5 MG SUBL ASENAPINE MALEATE Inactive TRAZODONE HCL 50 MG TABS 1/2 tab po qd prn for anxiety TRAZODONE HCL 50 MG TABS 073004 TRAZODONE HCL Inactive LATUDA 20 MG TABS Take one by mouth daily LATUDA 20 MG TABS LURASIDONE HCL Inactive LISINOPRIL 20 MG TABS 1 tab po qd LISINOPRIL 20 MG TABS 274933 LISINOPRIL Inactive SAPHRIS 10 MG SUBL 1 [...] twice a day CEFDINIR 300 MG CAPS 814151 CEFDINIR Inactive PREDNISONE 20 MG TAB 2 tabs daily for 3 days, 1 tab daily for 3 days, 1/2 tab daily for 2 days PREDNISONE 20 MG TAB 813872 PREDNISONE Inactive BACTRIM DS 800-160 MG TABS [...] U/L Chart Maintenance: outside labs entered on [employer] - Hematology hemoglobin, blood 13.2 g/dL platelet count 364 10*3/mm3 leukocyte count, blood 8.9 10*3/mm3 Lab Report: Comp. Metabolic Panel - Chemistry aspartate aminotransferase (SGOT), serum 13 U/L 15-37 calcium, serum 8.5 mg/dL 8.5-10.1 bilirubin, serum, total 0.20 mg/dL 0.00-1.00 sodium, serum 141 mmol/L 586-763 8675 potassium, serum 4.3 mmol/L 3.5-5.2 chloride, serum 106 mmol/L 98-107 carbon dioxide, venous blood 25.7 mmol/L 21.0-32.0 blood glucose 119 mg/dL 65-110 urea nitrogen, blood 22 mg/dL 7-18 creatinine, serum 0.90 mg/dL 0.60-1.30 alanine aminotransferase (SGPT), serum 28 U/L Lab Report: Comp. Metabolic Panel, Lipid Panel - Chemistry potassium, serum 4.8 mmol/L 3.5-5.2 chloride, serum 106 mmol/L 98-107 carbon dioxide, venous blood 24.3 mmol/L 21.0-32.0 blood glucose 90 mg/dL 65-110 urea nitrogen, blood 16 mg/dL 7-18 sodium, serum 139 mmol/L 237-119 8042/12/31 creatinine, serum 1.00 mg/dL 0.60-1.30 alanine aminotransferase (SGPT), serum 41 U/L 78 aspartate aminotransferase (SGOT), serum 17 U/L 15-37 calcium, serum 8.6 mg/dL 8.5-10.1 bilirubin, serum, total 0.30 mg/dL 0.00-1.00 cholesterol, serum 108 mg/dL 868-086 7003/12/31 triglyceride, serum, fasting 120 mg/dL 30-200 HDL [...] Negative Negative Lab Report: UADIP W/MICRO, AUTO, [facility] - Chemistry human chorionic gonadotropin, urine, qualitative (urine test) Negative Negative protein, total urine random Negative mg/dL Negative RBC, urine, dipstick Negative Negative Lab Report: UADIP W/MICRO, AUTO, [facility] - Urinalysis urobilinogen, urine, semiquantitative (dipstick) 0.2 Normal leukocyte esterase, urine, by dipstick Negative Negative nitrite, urine, semiquantitative Negative Negative glucose, urine, semiquantitative Negative Negative ketones, urine, by test strip Negative Negative bilirubin, urine Negative Negative urine color Yellow Colorless;Lightyellow;Straw;Yellow appearance, urine Clear Clear specific gravity, urine 1.025 1.000-1.030 pH, urine, semiquantitative 7.0 5.0-8.5 Encounters Code Encounter Date Provider Facility CPT-40412 Level 3 Est. Patient 14:49:50 CDT Vishal Hui MD [facility] CPT-10322 Level 4 Est. Patient 18:41:46 CDT Neeraj Collins MD [facility] CPT-95632 Level 4 Est. Patient 09:18:38 SECTION WEAVER Vishal Hui MD [facility] CPT-55590 Level 3 Est. Patient 14:43:55 SECTION WEAVER Vishal Hui MD [facility] CPT-56967 Level 3 Est. Patient 15:26:33 SECTION WEAVER Sahara Rodriguez MD PhD [facility] CPT-34724 Level 3 Est. Patient 10:32:14 SECTION WEAVER Vishal Hui MD [facility] CPT-42699 Level 3 Est. Patient 15:12:52 SECTION WEAVER Vishal Hui MD [facility] CPT-94340 Level 4 Est. Patient 09:19:27 CDT Vishal Hui MD [facility] CPT-18776 Level 3 Est. Patient 15:53:00 CDT Renzo Thornton [facility] CPT-14287 Level 3 Est. Patient 15:50:30 CDT Renzo Thornton [facility] CPT-13211 Level 3 Est. Patient 16:55:24 CDT Vishal Hui MD [facility] Procedures Code Procedure Name Date Entry Date Standard Description CPT-64086 Sono transvag pelvis non OB uterus ovaries cervix 16:36: 57 CDT CPT-58308 LS spine comp w obliq 09:50:55 SECTION WEAVER CPT-09408 Abd compl w upright 09:50:55 SECTION WEAVER CPT-J1100 Decadron 4mg (Dexamethasone) 15:51:24 SECTION WEAVER CPT-J1030 Depo Medrol 40 mg (Methyl Prednisolone Acetate) 15:51: 24 SECTION WEAVER CPT-05194 Abx/Therapy Injection 15:51:24 SECTION WEAVER CPT-J1100 Decadron 4mg (Dexamethasone) 15:26:33 SECTION WEAVER CPT-J1030 Depo Medrol 40 mg (Methyl Prednisolone Acetate) 15:26: 33 SECTION WEAVER CPT-95171 Sono retroperitoneal complete kidneys and bladder 17:15: 30 CDT CPT-25523 Abd compl w upright 16:09:25 CDT CPT-J1100 Decadron 8mg (Dexamethasone) 17:07:57 CDT CPT-45112 Abx/Therapy Injection 17:07:57 CDT CPT-J1100 Decadron 8mg (Dexamethasone) 16:55:24 CDT CPT-10094 Chest 2V Frontal and Lat 16:32:44 CDT
--- OUTSIDE RECORDS SUMMARY | 2016-11-05 01:35 | XMS REPORT | Clinical Summary ---
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 Suzan Boo [...] Cervicalgia Preop exam V72.84 Active Suzan Rajeev [employer] Preoperative examination, unspecified Anxiety Disorder ICD-300.00 Inactive Vishal Hui MD Pneumonia, organism unspecified ICD-486 Inactive Vishal Hui MD Flank pain, right ICD-789.09 Inactive Vishal Hui MD G E R D ICD-530.81 Inactive Vishal Hui MD Health screening ICD-V70.0 Inactive Suzan Boo [employer] Sinus tachycardia ICD-427.89 Inactive Suzan Boo [employer] Smoker/tobacco use disorder-smoking cessation discussed ICD-305.1 Inactive [...] Suzan Boo APRN Bronchitis, acute ICD-466.0 Inactive hAmet Carbajal MD Medication List Medication Instructions Start Date Stop Date Generic Name NDC Status Provider Patient Instruction BACTRIM DS 800-160 MG TAB Take one (1) tablet by mouth twice a day for 5 days TRIMETHOPRIM-SULFAMETHOXAZOLE 49034394430 Active Samantha MCDONALD Active MUPIROCIN 2 % OINT apply twice a day MUPIROCIN 67221356366 No Longer Active Suzan Boo APRN Active BACTRIM DS 800-160 MG TABS 1 twice a day SULFAMETHOXAZOLE-TRIMETHOPRIM 71212918979 No Longer Active Suzan Boo APRN Active DIFLUCAN 150 MG TABS 1 by mouth for yeast FLUCONAZOLE 53960851585 No Longer Active Suzan Boo APRN Active AMITIZA 8 MCG ORAL CAPS 1 capsule twice daily LUBIPROSTONE 34354500963 Active Sheila Calderon LPN Active LINZESS 290 MCG ORAL CAPS 1 tab 30 min prior to first meal each day. LINACLOTIDE 05778857694 No Longer Active Sheila Calderno LPN Active AMITIZA 8 MCG ORAL CAPS 1 tab BID LUBIPROSTONE 14770625727 No Longer Active Lynda Xiao LPN Active LACTULOSE 10 GM/15ML ORAL SOLN 30mL oral BID for IBS-C LACTULOSE 55404853000 Active Suzan Boo APRN Active TESSALON PERLES 100 MG CAPS 1 three times a day as needed for cough BENZONATATE 10587277928 No Longer Active Suzan Boo APRN Active BACTRIM DS 800-160 MG TABS 1 twice a day SULFAMETHOXAZOLE-TRIMETHOPRIM 83964976549 No Longer Active Suzan Boo APRN Active DIFLUCAN 150 MG TABS 1 by mouth for yeast FLUCONAZOLE 99169359741 No Longer Active Suzan Boo APRN Active EQ NICOTINE 21 MG/24HR TRANS PT24 Apply daily to stop smoking NICOTINE 01672629723 No Longer Active Suzan Boo APRN Active PREDNISONE 10 MG TABS 2 daily for 5 days then 1 daily for 5 days PREDNISONE 43637394025 No Longer Active Suzan Boo APRN Active LEVAQUIN 500 MG TABS 1 daily for infection LEVOFLOXACIN 91901999836 No Longer Active Suzan Boo APRN Active TROPICAMIDE 0.5 % OPHTH SOLN 1 drop PRN eye spasms TROPICAMIDE 89213918897 No Longer Active Suzan Boo APRN Active PREDNISONE 20 MG TAB 1 tablet daily x 4 days PREDNISONE 62255909524 No Longer Active Suzan Boo APRN Active ACETAMINOPHEN-CODEINE 120-12 MG/5ML SOLN 5 ml by mouth every 4-6 hours if needed for cough ACETAMINOPHEN-CODEINE 57442770602 No Longer Active Suzan Boo APRN Active KEFLEX 500 MG CAP 1 po qid CEPHALEXIN 23194943544 No Longer Active Suzan Boo APRN Active FLOVENT HFA 110 MCG/ACT AERO 2 puffs inhaled b.i.d. FLUTICASONE PROPIONATE HFA 72049037129 Active Renzo Thornton DO Active RISPERDAL 4 MG ORAL TABS 1 tab at bedtime RISPERIDONE 00310537242 Active Samantha MCDONALD Active ZOFRAN 4 MG TABS 1 po q6hr PRN Nausea ONDANSETRON HCL No Longer Active Suzan Boo APRN Active FLUTICASONE PROPIONATE 50 MCG/ACT SUSP 2 sprays each nostril daily before bed. FLUTICASONE PROPIONATE 03346018620 No Longer Active Suzan Boo APRN Active ASPIRIN 325 MG ORAL TABS 1 tab q.d ASPIRIN 79579433521 No Longer Active Suzan Boo APRN Active HALOPERIDOL 10 MG ORAL TABS 1 tab q.d HALOPERIDOL 35956790061 No Longer Active Suzan Boo APRN Active GUAIFENESIN-CODEINE 100-10 MG/5ML SYRP 5ml every 4 to 6 hours as needed for cough GUAIFENESIN-CODEINE 11912032867 No Longer Active Suzan Boo APRN Active ZITHROMAX Z-EARNEST 250 MG TABS 2 today and then 1 daily for 4 days AZITHROMYCIN 15075408563 No Longer Active Suzan Boo APRN Active CLONAZEPAM 1 MG ORAL TABS 1 twice a day and an additional 1 tablet every other day as needed for pseudoseizures or anxiety CLONAZEPAM 16573888038 Active Suzan Boo APRN Active HYDROCODONE-ACETAMINOPHEN 5-325 MG ORAL TABS 1 tab two times a day HYDROCODONE-ACETAMINOPHEN 42503706835 No Longer Active Ahmet Carbajal MD Active LAMICTAL 100 MG ORAL TABS 1 tab 2 times qd. LAMOTRIGINE 98292958173 Active Ahmet Carbajal MD Active PREDNISONE 20 MG TABS 2 daily for 5 days then 1 daily for 5 days PREDNISONE 80891692452 No Longer Active Ahmet Carbajal MD Active FLUTICASONE PROPIONATE 50 MCG/ACT SUSP 1 to 2 sprays each nostril daily for allergies FLUTICASONE PROPIONATE 58435021718 Active Tila Valenzuela Active BENADRYL 25 MG CAP 4 po at bedtime for insomnia DIPHENHYDRAMINE HCL 18890671880 No Longer Active Ahmet Carbajal MD Active ADVAIR DISKUS 250-50 MCG/DOSE INH AEPB 1 puff twice a day for asthma FLUTICASONE-SALMETEROL 55301387391 No Longer Active Ahmet Carbajal MD Active KLONOPIN 1 MG ORAL TABS 1 tab po TID CLONAZEPAM 08294501132 No Longer Active Ahmet Carbajal MD Active ABILIFY MAINTENA 400 MG IM SUSR 400mg injection every 26 days ARIPIPRAZOLE 28811389582 No Longer Active Ahmet Carbajal MD Active TRAMADOL HCL 50 MG TABS 1/2-1 tab TID PRN TRAMADOL HCL 35473520146 No Longer Active Ahmet Carbajal MD Active BACTRIM DS 800-160 MG TABS 1 twice a day SULFAMETHOXAZOLE- TRIMETHOPRIM 21813650416 No Longer Active Ahmet Carbajal MD Active PROAIR HFA 108 (90 BASE) MCG/ACT AERS 2 puffs four times a day as needed 2015 ALBUTEROL SULFATE 83462027128 Active Honey Hinton [employer]ER Active MONISTAT 7 COMBO PACK WOODROW 100 & 2 MG-% (9GM) VAG KIT 1 applicatorful per vagina q pm x 7 MICONAZOLE NITRATE 89391672798 No Longer Active Ahmet Carbajal MD Active FLAGYL 500 MG TAB 1 tablet by mouth bid METRONIDAZOLE 07484080361 No Longer Active Ahmet Carbajal MD Active OXYCODONE HCL ER 10 MG ORAL T12A 1/2 tab by mouth every 4 hours prn OXYCODONE HCL 97490348682 No Longer Active Ahmet Carbajal MD Active METHYLPREDNISOLONE 4 MG ORAL TABS po daily METHYLPREDNISOLONE 06820336920 No Longer Active Ahmet Carbajal MD Active LEVOFLOXACIN 500 MG ORAL TABS po daily LEVOFLOXACIN 11284181080 No Longer Active Ahmet Carbajal MD Active VIIBRYD 10 MG ORAL TABS Take 1 tablet once a day VILAZODONE HCL 29837817370 No Longer Active Ahmet Carbajal MD Active TOPAMAX 50 MG ORAL TABS 1 tab twice daily TOPIRAMATE 68842377906 No Longer Active Ahmet Carbajal MD Active DICLOFENAC SODIUM 50 MG TBEC 1 tablet by mouth four times daily PRN Pain 2015 DICLOFENAC SODIUM 38412989771 No Longer Active Ahmet Carbajal MD Active ADZENYS XR-ODT 6.3 MG ORAL TBED 1 tab po daily for ADHD AMPHETAMINE 57426839055 No Longer Active Ahmet Carbajal MD Active CHANTIX 1 MG TABS 1 twice a day to help quit smoking VARENICLINE TARTRATE 89281492773 No Longer Active Dipika Burgos MD Active CHANTIX STARTING MONTH EARNEST 0.5 MG X 11 & 1 MG X 42 TABS take as directed 2015 VARENICLINE TARTRATE 03834039747 No Longer Active Dipika Burgos MD Active TESSALON PERLES 100 MG CAP 1 to 2 tablets by mouth 3 times daily as needed for cough BENZONATATE 44273704114 No Longer Active Luigi Martínez APRN Active IMITREX 50 MG ORAL TABS 0.5 po x 1 PRN Headache. May repeat dose x 1 in 2 hours if needed SUMATRIPTAN SUCCINATE 14421105640 Active Ahmet Carbajal MD Active HYDROCODONE-ACETAMINOPHEN 5-325 MG TABS 1 to 2 four times a day as needed for pain use until can be seen by specialist HYDROCODONE- ACETAMINOPHEN 21343708641 No Longer Active Vishal Hui MD Active PROAIR HFA 108 (90 BASE) MCG/ACT AERS 2 puffs four times a day as needed 2015 ALBUTEROL SULFATE 29156992506 No Longer Active Vishal Hui MD Active PREDNISONE 20 MG TABS 2 daily for 5 days then 1 daily for 5 days PREDNISONE 70905028981 No Longer Active Vishal Hui MD Active ZITHROMAX Z-EARNEST 250 MG TABS 2 today and then 1 daily for 4 days AZITHROMYCIN 22673643466 No Longer Active Vishal Hui MD Active DICLOFENAC POTASSIUM TABS Take 1 tablet twice a day (pt. is not sure of the dose.) DICLOFENAC POTASSIUM TABS 85245066693 No Longer Active Vishal Hui MD Active VERAPAMIL HCL ER 120 MG ORAL CR-TABS Take 1 tablet by mouth twice a day. VERAPAMIL HCL 51578477373 Active Vishal Hui MD Active FLAGYL 500 MG TAB 1 tablet by mouth bid METRONIDAZOLE 52630661689 No Longer Active Vishal Hui MD Active VALIUM 5 MG TAB Take 1-2 tablets daily DIAZEPAM 55808581739 No Longer Active Fabiola Johnson APRN Active METOPROLOL TARTRATE 25 MG ORAL TABS 1/2 tablet twice daily for heart rate and blood pressure METOPROLOL TARTRATE 73546286428 No Longer Active Fabiola Johnson APRN Active MIRALAX ORAL POWD 17GMS DAILY IN WATER POLYETHYLENE GLYCOL 3350 52177472762 Active TAMARA Casey Active MIRALAX PACK 1 po qd PRN Constipation POLYETHYLENE GLYCOL 3350 87647887747 No Longer Active Ahmet Carbajal MD Active MINIPRESS 2 MG CAPS 4 cap po at night PRAZOSIN HCL 65881924115 No Longer Active Ahmet Carbajal MD Active PIROXICAM 20 MG CAPS 1 cap po qd PRN Pain PIROXICAM 83181505591 No Longer Active Ahmet Carbajal MD Active TRAMADOL HCL 50 MG TABS 1-2 po TID PRN Pain TRAMADOL HCL 25546189760 No Longer Active Ahmet Carbajal MD Active METOPROLOL TARTRATE 50 MG TAB 1 po bid METOPROLOL TARTRATE 75525391465 No Longer Active Ahmet Carbajal MD Active ABILIFY 15 MG ORAL TABS 1 tab daily ARIPIPRAZOLE 24083220101 No Longer Active Ahmet Carbajal MD Active PROZAC 20 MG ORAL CAPS 1 tab daily FLUOXETINE HCL 37296568590 No Longer Active Ahmet Carbajal MD Active AMBIEN 5 MG ORAL TABS 1 tab at bedtime ZOLPIDEM TARTRATE 33625490512 No Longer Active Ahmet Carbajal MD Active PREDNISONE 20 MG TAB 2 tabs daily for 4 days, 1 tab daily for 4 days, 1/2 tab daily for 4 days PREDNISONE 24722286178 No Longer Active Ahmet Carbajal MD Active KEFLEX 500 MG CAP 1 po TID x 10 days CEPHALEXIN 94092229161 No Longer Active Vishal Hui MD Active SAPHRIS 5 MG SUBL 1 po bid ASENAPINE MALEATE 20024185604 No Longer Active Luigi Martínez APRN Active LATUDA 80 MG TABS Take one by mouth daily LURASIDONE HCL 53348578454 No Longer Active Luigi Martínez APRN Active AMLODIPINE BESYLATE 5 MG TABS 1 tablet by mouth daily AMLODIPINE BESYLATE 24938369563 No Longer Active Luigi Martínez APRN Active AMITRIPTYLINE HCL 100 MG TAB one at hs AMITRIPTYLINE HCL 98216875022 No Longer Active Vishal Hui MD Active TRAZODONE HCL 100 MG TAB take 1 at bedtime TRAZODONE HCL 60216135001 No Longer Active Vishal Hui MD Active VYVANSE 40 MG CAPS 1 daily, LISDEXAMFETAMINE DIMESYLATE 19433143425 No Longer Active Vishal Hui MD Active IBUPROFEN 600 MG TAB 1 po TID PRN IBUPROFEN 91232826651 No Longer Active Vishal Hui MD Active PROZAC 20 MG CAP Take one by mouth daily FLUOXETINE HCL 63500507372 No Longer Active Vishal Hui MD Active BACTRIM DS 800-160 MG TABS 1 pill by mouth twice daily SULFAMETHOXAZOLE-TRIMETHOPRIM 40093443477 No Longer Active Sahara Rodriguez MD PhD Active DIFLUCAN 150 MG TAB 1 tablet by mouth daily FLUCONAZOLE 70912117495 No Longer Active Vishal Hui MD Active TIZANIDINE HCL 4 MG TABS 1 po q6hr PRN Muscle Spasm/Back Pain TIZANIDINE HCL 05388583219 Active TAMARA Casey Active CLINDAMYCIN HCL 150 MG CAPS 1 four times a day CLINDAMYCIN HCL 21020343466 No Longer Active Neeraj Collins MD Active KEFLEX 500 MG ORAL CAPS 1 cap QID by mouth CEPHALEXIN 20860916908 No Longer Active Neeraj Collins MD Active DIFLUCAN 150 MG TABS 1 pill every other day x 2 doses FLUCONAZOLE 62805187733 No Longer Active Sahara Rodriguez MD PhD Active MELATONIN 3 MG CAPS 2 po q hs MELATONIN 25453295001 No Longer Active Sahara Rodriguez MD PhD Active MULTIVITAMINS CAPS Take one by mouth daily MULTIPLE VITAMIN 24827836200 No Longer Active Sahara Rodriguez MD PhD Active BACTRIM DS 800-160 MG TAB 1 tab by mouth twice daily TRIMETHOPRIM-SULFAMETHOXAZOLE 38396201340 No Longer Active Sahara Rodriguez MD PhD Active [facility] PROBIOTIC ORAL CHEW 2 daily po PROBIOTIC PRODUCT 75501500053 No Longer Active Sahara Rodriguez MD PhD Active BACTRIM DS 800-160 MG TABS 1 po BID x 7 days SULFAMETHOXAZOLE-TRIMETHOPRIM 47164692856 No Longer Active Vishal Hui MD Active CHANTIX STARTING MONTH EARNEST 0.5 MG X 11 & 1 MG X 42 TABS 0.5mg daily for 3 days , then 0.5mg BID for 4 days, then 1mg BID VARENICLINE TARTRATE 77129106894 No Longer Active TAMARA Gray Active VERAPAMIL HCL CR 120 MG TAB CR 1 po bid VERAPAMIL HCL 06843891398 No Longer Active Vishal Hui MD Active METOPROLOL SUCCINATE 50 MG TB24 1 tablet by mouth daily METOPROLOL SUCCINATE 11967012277 No Longer Active Vishal Hui MD Active SAPHRIS 10 MG SUBL 1 tab po bid ASENAPINE MALEATE 31264025706 No Longer Active Vishal Hui MD Active LISINOPRIL 20 MG TABS 1 tab po qd LISINOPRIL 28299205877 No Longer Active Vishal Hui MD Active LATUDA 20 MG TABS Take one by mouth daily LURASIDONE HCL 20822419690 No Longer Active Vishal Hui MD Active TRAZODONE HCL 50 MG TABS 1/2 tab po qd prn for anxiety TRAZODONE HCL 08808747022 No Longer Active Vishal Hui MD Active OMEPRAZOLE 20 MG TBEC 1 po q a.m. 30min prior to first food intake OMEPRAZOLE 75714543387 Active TAMARA Casey Active RANITIDINE HCL 150 MG CAPS 1 twice a day RANITIDINE HCL 80771350069 Active Lynda Xiao UTILIZATION MANAGER Active LINZESS 290 MCG CAPS Take one by mouth daily LINACLOTIDE 45956528801 No Longer Active Vishal Hui MD Active SAPHRIS 5 MG SUBL 1 tab po qd ASENAPINE MALEATE 06105006853 No Longer Active Vishal Hui MD Active ZALEPLON 10 MG CAPS 1 cap po every other night ZALEPLON 98708413240 No Longer Active Vishal Hui MD Active LYRICA 50 MG CAPS 1 tab po TID PREGABALIN 49149971392 No Longer Active Vishal Hui MD Active LORATADINE 10 MG TABS 1 tab po qd LORATADINE 59437377846 No Longer Active Vishal Hui MD Active VERAPAMIL HCL ER 180 MG CR-TABS 1 tab po bid VERAPAMIL HCL 66138742252 No Longer Active Vishal Hui MD Active MIRALAX POWD 1 capfull once daily POLYETHYLENE GLYCOL 3350 36908685160 No Longer Active Vishal Hui MD Active PREDNISONE 20 MG TABS 1 tab po qd PREDNISONE 80126146398 No Longer Active Renzo Thornton DO Active LEVOFLOXACIN 500 MG TABS 1 tab po qd LEVOFLOXACIN 90750363668 No Longer Active Renzo Thornton DO Active BUSPIRONE HCL 15 MG TABS 1 tab po TID BUSPIRONE HCL 25123893793 No Longer Active Renzo Thornton DO Active BENZTROPINE MESYLATE 1 MG TABS 1 tab po qd BENZTROPINE MESYLATE 77526978639 No Longer Active Renzo Thornton DO Active ATENOLOL 25 MG TABS 1 tab po qd ATENOLOL 38207957483 No Longer Active Renzo Thornton DO Active ESCITALOPRAM OXALATE 20 MG TABS 1 tab po qd ESCITALOPRAM OXALATE 99798222053 No Longer Active Renzo Thornton DO Active ADVAIR DISKUS 250-50 MCG/DOSE AEPB 1 puff BID FLUTICASONE-SALMETEROL 21922657086 No Longer Active Renzo Thornton DO Active PREDNISONE 20 MG TAB 2 tabs daily for 3 days, 1 tab daily for 3 days, 1/2 tab daily for 2 days PREDNISONE 83578958483 No Longer Active Vishal Hui MD Active CEFDINIR 300 MG CAPS by mouth twice a day CEFDINIR 14441168669 No Longer Active Vishal Hui MD Active LANSOPRAZOLE 30 MG CPDR 1 cap po qd LANSOPRAZOLE 43238931045 No Longer Active Vishal Hui MD Active BACLOFEN 20 MG TABS 1 tab po tid BACLOFEN 22411019635 No Longer Active Vishal Hui MD Active ADVAIR DISKUS 250-50 MCG/DOSE AEPB 1 puff BID ADVAIR DISKUS 250-50 MCG/DOSE AEPB FLUTICASONE-SALMETEROL Inactive ESCITALOPRAM OXALATE 20 MG TABS 1 tab po qd ESCITALOPRAM OXALATE 20 MG TABS 914146 ESCITALOPRAM OXALATE Inactive ATENOLOL 25 MG TABS 1 tab po qd ATENOLOL 25 MG TABS 490651 ATENOLOL Inactive BENZTROPINE MESYLATE 1 MG TABS 1 tab po qd BENZTROPINE MESYLATE 1 MG TABS 791499 BENZTROPINE MESYLATE Inactive BUSPIRONE HCL 15 MG TABS 1 tab po TID BUSPIRONE HCL 15 MG TABS 959079 BUSPIRONE HCL Inactive LEVOFLOXACIN 500 MG TABS 1 tab po qd LEVOFLOXACIN 500 MG TABS 370617 LEVOFLOXACIN Inactive PREDNISONE 20 MG TABS 1 tab po qd PREDNISONE 20 MG TABS 531773 PREDNISONE Inactive MIRALAX POWD 1 capfull once daily MIRALAX POWD 600304 POLYETHYLENE GLYCOL 3350 Inactive VERAPAMIL HCL ER 180 MG CR-TABS 1 tab po bid VERAPAMIL HCL ER 180 MG CR-TABS VERAPAMIL HCL Inactive LORATADINE 10 MG TABS 1 tab po qd LORATADINE 10 MG TABS 987544 LORATADINE Inactive LYRICA 50 MG CAPS 1 tab po TID LYRICA 50 MG CAPS PREGABALIN Inactive ZALEPLON 10 MG CAPS 1 cap po every other night ZALEPLON 10 MG CAPS 875325 ZALEPLON Inactive SAPHRIS 5 MG SUBL 1 tab po qd SAPHRIS 5 MG SUBL ASENAPINE MALEATE Inactive TRAZODONE HCL 50 MG TABS 1/2 tab po qd prn for anxiety TRAZODONE HCL 50 MG TABS 082244 TRAZODONE HCL Inactive LATUDA 20 MG TABS Take one by mouth daily LATUDA 20 MG TABS LURASIDONE HCL Inactive LISINOPRIL 20 MG TABS 1 tab po qd LISINOPRIL 20 MG TABS 678771 LISINOPRIL Inactive SAPHRIS 10 MG SUBL 1 [...] twice daily BACTRIM DS 800-160 MG TAB 755528 TRIMETHOPRIM-SULFAMETHOXAZOLE Inactive MULTIVITAMINS CAPS Take one by mouth daily MULTIVITAMINS CAPS MULTIPLE VITAMIN Inactive MELATONIN 3 MG CAPS 2 po q hs MELATONIN 3 MG CAPS 430036 MELATONIN Inactive KEFLEX 500 MG ORAL CAPS 1 cap QID by mouth KEFLEX 500 MG ORAL CAPS 558429 CEPHALEXIN Inactive CLINDAMYCIN HCL 150 MG CAPS 1 four times a day CLINDAMYCIN HCL 150 MG CAPS 014604 CLINDAMYCIN HCL Inactive DIFLUCAN 150 MG TAB 1 tablet by mouth daily DIFLUCAN 150 MG TAB 498934 FLUCONAZOLE Inactive PROZAC 20 MG CAP Take one by mouth daily PROZAC 20 MG CAP 991242 FLUOXETINE HCL Inactive IBUPROFEN 600 MG TAB 1 po TID PRN IBUPROFEN 600 MG TAB 325184 IBUPROFEN Inactive VYVANSE 40 MG CAPS 1 daily, VYVANSE 40 MG CAPS LISDEXAMFETAMINE DIMESYLATE Inactive TRAZODONE HCL 100 MG TAB take 1 at bedtime TRAZODONE HCL 100 MG TAB 500750 TRAZODONE HCL Inactive AMITRIPTYLINE HCL 100 MG TAB one at hs AMITRIPTYLINE HCL 100 MG TAB 098479 AMITRIPTYLINE HCL Inactive AMLODIPINE BESYLATE 5 MG TABS 1 tablet by mouth daily AMLODIPINE BESYLATE 5 MG TABS 451839 AMLODIPINE BESYLATE Inactive LATUDA 80 MG TABS Take one by mouth daily LATUDA 80 MG TABS LURASIDONE HCL Inactive SAPHRIS 5 MG SUBL 1 po bid SAPHRIS 5 MG SUBL ASENAPINE MALEATE Inactive PREDNISONE 20 MG TAB 2 tabs daily for 4 days, 1 tab daily for 4 days, 1/2 tab daily for 4 days PREDNISONE 20 MG TAB 489738 PREDNISONE Inactive AMBIEN 5 MG ORAL TABS 1 tab at bedtime AMBIEN 5 MG ORAL TABS 588112 ZOLPIDEM TARTRATE Inactive PROZAC 20 MG ORAL CAPS 1 tab daily PROZAC 20 MG ORAL CAPS 378706 FLUOXETINE HCL Inactive ABILIFY 15 MG ORAL TABS 1 tab daily ABILIFY 15 MG ORAL TABS 254984 ARIPIPRAZOLE Inactive METOPROLOL TARTRATE 50 MG TAB 1 po bid METOPROLOL TARTRATE 50 MG TAB 126181 METOPROLOL TARTRATE Inactive TRAMADOL HCL 50 MG TABS 1-2 po TID PRN Pain TRAMADOL HCL 50 MG TABS 068900 TRAMADOL HCL Inactive PIROXICAM 20 MG CAPS 1 cap po qd PRN Pain PIROXICAM 20 MG CAPS 026063 PIROXICAM Inactive MINIPRESS 2 MG CAPS 4 cap po at night MINIPRESS 2 MG CAPS 507556 PRAZOSIN HCL Inactive MIRALAX PACK 1 po qd PRN Constipation MIRALAX PACK 404650 POLYETHYLENE GLYCOL 3350 Inactive METOPROLOL TARTRATE 25 MG ORAL TABS 1/2 tablet twice daily for heart rate and blood pressure METOPROLOL TARTRATE 25 MG ORAL TABS 004719 METOPROLOL TARTRATE Inactive VALIUM 5 MG TAB Take 1-2 tablets daily VALIUM 5 MG TAB 595381 DIAZEPAM Inactive FLAGYL 500 MG TAB 1 tablet by mouth bid FLAGYL 500 MG TAB 471735 METRONIDAZOLE Inactive DICLOFENAC POTASSIUM TABS Take 1 tablet twice a day (pt. is not sure of the dose.) DICLOFENAC POTASSIUM TABS DICLOFENAC POTASSIUM TABS Inactive ZITHROMAX Z-EARNEST 250 MG TABS 2 today and then 1 daily for 4 days ZITHROMAX Z-EARNEST 250 MG TABS 1348502 AZITHROMYCIN Inactive PREDNISONE 20 MG TABS 2 daily for 5 days then 1 daily for 5 days PREDNISONE 20 MG TABS 954677 PREDNISONE Inactive PROAIR HFA 108 (90 BASE) MCG/ACT AERS 2 puffs four times a day as needed 2015 PROAIR HFA 108 (90 BASE) MCG/ACT AERS ALBUTEROL SULFATE Inactive HYDROCODONE-ACETAMINOPHEN 5-325 MG TABS 1 to 2 four times a day as needed for pain use until can be seen by specialist HYDROCODONE- ACETAMINOPHEN 5-325 MG TABS 258939 HYDROCODONE-ACETAMINOPHEN Inactive TESSALON PERLES 100 MG CAP 1 to 2 tablets by mouth 3 times daily as needed for cough TESSALON PERLES 100 MG CAP 746253 BENZONATATE Inactive CHANTIX STARTING MONTH EARNEST 0.5 [...] Pain 2015 DICLOFENAC SODIUM 50 MG TBEC 211683 DICLOFENAC SODIUM Inactive TOPAMAX 50 MG ORAL TABS 1 tab twice daily TOPAMAX 50 MG ORAL TABS 802860 TOPIRAMATE Inactive VIIBRYD 10 MG ORAL TABS Take 1 tablet once a day VIIBRYD 10 MG ORAL TABS VILAZODONE HCL Inactive LEVOFLOXACIN 500 MG ORAL TABS po daily LEVOFLOXACIN 500 MG ORAL TABS 524073 LEVOFLOXACIN Inactive METHYLPREDNISOLONE 4 MG ORAL TABS po daily METHYLPREDNISOLONE 4 MG ORAL TABS 400672 METHYLPREDNISOLONE Inactive OXYCODONE HCL ER 10 MG ORAL T12A 1/2 tab by mouth every 4 hours prn OXYCODONE HCL ER 10 MG ORAL T12A OXYCODONE HCL Inactive FLAGYL 500 MG TAB 1 tablet by mouth bid FLAGYL 500 MG TAB 283104 METRONIDAZOLE Inactive MONISTAT 7 COMBO PACK WOODROW 100 & 2 MG-% (9GM) VAG KIT 1 applicatorful per vagina q pm x 7 MONISTAT 7 COMBO PACK WOODROW 100 & 2 MG-% (9GM) VAG KIT MICONAZOLE NITRATE Inactive BACTRIM DS 800-160 MG TABS 1 twice a day BACTRIM DS 800-160 MG TABS 520033 SULFAMETHOXAZOLE-TRIMETHOPRIM Inactive TRAMADOL HCL 50 MG TABS 1/2-1 tab TID PRN TRAMADOL HCL 50 MG TABS 165663 TRAMADOL HCL Inactive ABILIFY MAINTENA 400 MG IM SUSR 400mg injection every 26 days ABILIFY MAINTENA 400 MG IM SUSR ARIPIPRAZOLE Inactive KLONOPIN 1 MG ORAL TABS 1 tab po TID KLONOPIN 1 MG ORAL TABS 782864 CLONAZEPAM Inactive ADVAIR DISKUS 250-50 MCG/DOSE INH AEPB 1 puff twice a day for asthma ADVAIR DISKUS 250-50 MCG/DOSE INH AEPB FLUTICASONE- SALMETEROL Inactive BENADRYL 25 MG CAP 4 po at bedtime for insomnia BENADRYL 25 MG CAP DIPHENHYDRAMINE HCL Inactive PREDNISONE 20 MG TABS 2 daily for 5 days then 1 daily for 5 days PREDNISONE 20 MG TABS 492365 PREDNISONE Inactive HYDROCODONE-ACETAMINOPHEN 5-325 MG ORAL TABS 1 tab two times a day HYDROCODONE-ACETAMINOPHEN 5-325 MG ORAL TABS 746919 HYDROCODONE-ACETAMINOPHEN Inactive ZITHROMAX Z-EARNEST 250 MG TABS 2 today and then 1 daily for 4 days ZITHROMAX Z-EARNEST 250 MG TABS 7807152 AZITHROMYCIN Inactive GUAIFENESIN-CODEINE 100-10 MG/5ML SYRP 5ml every 4 to 6 hours as needed for cough GUAIFENESIN-CODEINE 100-10 MG/5ML SYRP 760458 GUAIFENESIN-CODEINE Inactive HALOPERIDOL 10 MG ORAL TABS 1 tab q.d HALOPERIDOL 10 MG ORAL TABS 520821 HALOPERIDOL Inactive ASPIRIN 325 MG ORAL TABS 1 tab q.d ASPIRIN 325 MG ORAL TABS 914027 ASPIRIN Inactive FLUTICASONE PROPIONATE 50 MCG/ACT SUSP 2 sprays each nostril daily before bed. FLUTICASONE PROPIONATE 50 MCG/ACT SUSP 2936939 FLUTICASONE PROPIONATE Inactive ZOFRAN 4 MG TABS 1 po q6hr PRN Nausea ZOFRAN 4 MG TABS 297594 ONDANSETRON HCL Inactive KEFLEX 500 MG CAP 1 po qid KEFLEX 500 MG CAP 091928 CEPHALEXIN Inactive ACETAMINOPHEN-CODEINE 120-12 MG/5ML SOLN 5 ml by mouth every 4-6 hours if needed for cough ACETAMINOPHEN-CODEINE 120-12 MG/5ML SOLN 644900 ACETAMINOPHEN-CODEINE Inactive PREDNISONE 20 MG TAB 1 tablet daily x 4 days PREDNISONE 20 MG TAB 700946 PREDNISONE Inactive TROPICAMIDE 0.5 % OPHTH SOLN 1 drop PRN eye spasms TROPICAMIDE 0.5 % OPHTH SOLN 614356 TROPICAMIDE Inactive LEVAQUIN 500 MG TABS 1 daily for infection LEVAQUIN 500 MG TABS 882378 LEVOFLOXACIN Inactive PREDNISONE 10 MG TABS 2 daily for 5 days then 1 daily for 5 days PREDNISONE 10 MG TABS [id number] PREDNISONE Inactive EQ NICOTINE 21 MG/24HR TRANS PT24 Apply daily to stop smoking EQ NICOTINE 21 MG/24HR TRANS PT24 NICOTINE Inactive DIFLUCAN 150 MG TABS 1 by mouth for yeast DIFLUCAN 150 MG TABS 196056 FLUCONAZOLE Inactive BACTRIM DS 800-160 MG TABS 1 twice a day BACTRIM DS 800-160 MG TABS [id number] SULFAMETHOXAZOLE-TRIMETHOPRIM Inactive TESSALON PERLES 100 MG CAPS 1 three times a day as needed for cough TESSALON PERLES 100 MG CAPS 183723 BENZONATATE Inactive AMITIZA 8 MCG ORAL CAPS [...] twice a day MUPIROCIN 2 % OINT 157872 MUPIROCIN Inactive CEFDINIR 300 MG CAPS by mouth twice a day CEFDINIR 300 MG CAPS 504008 CEFDINIR Inactive PREDNISONE 20 MG TAB 2 tabs daily for 3 days, 1 tab daily for 3 days, 1/2 tab daily for 2 days PREDNISONE 20 MG TAB [id number] PREDNISONE Inactive BACTRIM DS 800-160 MG TABS [...] x 10 days KEFLEX 500 MG CAP 071986 CEPHALEXIN Inactive Advance Directives Directive Description Start [...] % 11.0-15.0 platelet count 443 THOUSAND/UL 10*3/mm3 159-069 2123/03/01 mean platelet volume 8.2 fL 7.5-12.5 hematocrit, [...] % 11.0-15.0 platelet count 349 THOUSAND/UL 10*3/mm3 532-858 2989/04/12 mean platelet volume 8.4 fL 7.5-12.5 erythrocyte (RBC) count 4.30 MILLION/UL 10*6/mm3 3.80-5.10 hemoglobin, blood 13.5 g/dL 11.7-15.5 hematocrit, blood 39.8 % 35.0-45.0 mean corpuscular volume, RBC 92.5 fL 80.0-100.0 mean corpuscular hemoglobin, RBC 31.4 pg 27.0-33.0 Lab Report: CBC, Thyroid Stimulating Hormone (L) [...] 369 10^3/MM^3 10*3/mm3 142-424 Lab Report: Chlamydia/GC APTIMA/15750 - Lab chlamydia DNA probe NOT DETECTED NOT DETECTED Lab Report: Chlamydia/GC APTIMA/79828 - Microbiology Neisseria gonorrhoeae DNA probe NOT DETECTED NOT DETECTED Lab Report: Chlamydia/GC APTIMA/22674, Urinalysis, Complete, with Reflex ... - Lab chlamydia DNA probe NOT DETECTED NOT DETECTED Lab Report: Chlamydia/GC APTIMA/29848, Urinalysis, Complete, with Reflex ... - Microbiology Neisseria gonorrhoeae DNA probe NOT DETECTED NOT DETECTED Lab Report: Chlamydia/GC APTIMA/00793, Urinalysis, Complete, with Reflex ... - Urinalysis [...] 33.7 mmol/L 21.0-32.0 sodium, serum 140 mmol/L 366-936 4513/06/28 sodium, serum 140 mmol/L 168-730 8672/06/28 carbon dioxide, venous blood 23.8 mmol/L 21.0-32.0 [...] 5.0-8.5 Encounters Code Encounter Date Provider Facility CPT-84219 Level 3 Est. [facility] 15:55:[facility] Level 4 Est. Patient 10:49:34 CDT Suzan [facility] CPT-08146 Level 3 Est. Patient 10:00:25 [facility] Level 3 Est. Patient 10:29:30 [facility] Level 3 Est. Patient 11:04:38 CDT Renzo Thornton [facility] CPT-56839 Level 3 Est. Patient 11:15:58 [employer] Renzo Thornton [facility] CPT-47796 Level 3 Est. Patient 15:28:23 [employer] Suzan Boo [facility] CPT-88692 Level 4 Est. Patient 10:20:54 [employer] Suzan Boo [facility] CPT-76524 Level 3 Est. Patient 11:47:37 [employer] Ahmet Carbajal MD [facility] CPT-16110 Level 3 Est. Patient 10:40:11 [employer] Ahmet Carbajal MD [facility] CPT-47040 Level 3 Est. Patient 15:07:06 [employer] Neeraj Collins MD [facility] CPT-62750 Level 4 Est. Patient 14:45:00 [employer] Ahmet Carbajal MD [facility] CPT-93919 Level 3 Est. Patient 13:59:59 CDT Luigi Martínez [facility] CPT-97290 Level 3 Est. Patient 18:18:53 CDT Neeraj Collins MD [facility] CPT-80510 Level 3 Est. Patient 15:50:44 CDT Vishal Hui MD [facility] CPT-06505 Level 3 Est. Patient 11:36:17 CDT Ahmet Carbajal MD [facility] CPT-94154 Level 3 Est. Patient 13:29:16 CDT Vishal Hui MD [facility] CPT-15868 Level 3 Est. Patient 14:27:52 CDT Neeraj Collins MD [facility] CPT-34993 Level 3 Est. Patient 08:56:03 CDT Luigi Martínez [facility] CPT-19475 Level 4 Est. Patient 12:11:48 CDT Fabiola Johnson [facility] CPT-78113 Level 3 New Patient 16:53:37 CDT Albert Caldera MD [facility] CPT-15381 Level 3 Est. Patient 11:25:49 CDT Renzo Thornton DO [facility] CPT-35902 Level 3 Est. Patient 15:22:01 CDT Ahmet Carbajal MD [facility] CPT-29682 Level 4 Est. Patient 09:00:51 [employer] Vishal Hui MD [facility] CPT-86387 Level 3 Est. Patient 11:37:33 [employer] Vishal Hui MD [facility] CPT-54541 Level 3 Est. Patient 08:41:09 [employer] Vishal Hui MD [facility] CPT-79842 Level 4 Est. Patient 10:19:35 [employer] Vishal Hui MD [facility] CPT-90505 Level 3 Est. Patient 13:35:45 CDT Vishal Hui MD [facility] CPT-86037 Level 4 Est. Patient 10:08:37 CDT Vishal Hui MD [facility] CPT-41488 Level 3 Est. Patient 11:22:10 CDT Vishal Hui MD [facility] CPT-82284 Level 3 Est. Patient 11:03:32 CDT Sahara Rodriguez MD [facility] CPT-63672 Level 3 Est. Patient 09:41:35 CDT Vishal Hui MD [facility]-75575 Level 3 Est. Patient 12:00:41 CDT Neeraj Collins MD [facility] CPT-05238 Level 3 Est. Patient 09:16:24 CDT Vishal Hui MD [facility] CPT-76701 Level 4 Est. Patient 13:59:09 CDT Neeraj Collins MD [facility]-51784 Level 3 Est. Patient 15:19:43 CDT Renzo Thornton DO [facility] CPT-06907 Level 3 Est. Patient 18:10:26 CDT Sahara Rodriguez MD [facility]-58540 Level 3 Est. Patient 14:49:50 CDT Vishal Hui MD [facility] CPT-98229 Level 4 Est. Patient 18:41:46 CDT Neeraj Collins MD [facility]-48795 Level 4 Est. Patient 09:18:38 [employer] Vishal Hui MD [facility] CPT-03527 Level 3 Est. Patient 14:43:55 [employer] Vishal Hui MD [facility] CPT-02161 Level 3 Est. Patient 15:26:33 [employer] Sahara Rodriguez MD PhD [facility] CPT-80313 Level 3 Est. Patient 10:32:14 [employer] Vishal Hui MD [facility]-36295 Level 3 Est. Patient 15:12:52 [employer] Vishal Hui MD [facility] CPT-83056 Level 4 Est. Patient 09:19:27 CDT Vishal Hui MD [facility] CPT-22003 Level 3 Est. Patient 15:53:00 CDT Renzo Thornton [facility] CPT-21624 Level 3 Est. Patient 15:50:30 CDT Renzo Thornton [facility] CPT-22249 Level 3 Est. Patient 16:55:24 CDT Vishal Hui MD [facility] Procedures Code Procedure Name Date Entry Date Standard Description CPT-74111 EKG Trac and Interp - XRAY USE ONLY 15:59:30 CDT 09/13 CPT-95035 Chest 1V Frontal - XRAY USE ONLY 15:59:30 CDT CPT-77662 Venipuncture Draw Fee 15:44:02 CDT CPT-61586 Venipuncture Draw Fee 08:41:12 CDT CPT-40765 Abd compl w upright - XRAY USE ONLY 10:27:59 CDT 06/28 CPT-80061 Smoking Cessation counseling 11:15:58 [employer] CPT-G0439 Subsequent Annual Wellness Exam 09:30:58 [employer] CPT-05557 TSH - LAB USE ONLY 08:50:26 [employer] CPT-96615 CBC - LAB USE ONLY 08:50:26 [employer] CPT-55204 Venipuncture Draw Fee 08:50:26 [employer] CPT-24913 Abx/Therapy Injection 17:34:30 [employer] CPT-16175 Nexplanon Removal with Reinsertion 14:09:32 CDT CPT-J7307 Nexplanon (Implant) 14:09:32 CDT CPT-OV Office Visit 14:09:32 CDT CPT-78940 UA w micro - LAB USE ONLY 16:21:13 CDT CPT-83686 Wet Mount - LAB USE ONLY 16:21:13 CDT CPT-16465 First Vx - Ix admin for Medicare patients 14:37:47 CDT CPT-79274 Fluzone Preservative Free Intramuscular Suspension 14:37 :47 CDT CPT-66669 Abx/Therapy Injection 13:54:22 CDT CPT-18952 Abx/Therapy Injection 08:47:09 CDT CPT-24448 Abx/Therapy Injection 13:29:56 CDT CPT-08799 Abx/Therapy Injection 08:36:16 CDT CPT-00742 Wet Mount - LAB USE ONLY 17:44:58 CDT CPT-63239 UA w micro - LAB USE ONLY 17:44:58 CDT CPT-67835 CMP - LAB USE ONLY 17:44:58 CDT CPT-28216 Venipuncture Draw Fee 17:44:58 CDT CPT-14708 Cervical Min 4V - XRAY USE ONLY 09:01:40 CDT CPT-86408 Chest 2V Frontal and Lat - XRAY USE ONLY 11:06:31 CDT CPT-76796 EKG Trac and Interp - XRAY USE ONLY 11:31:43 CDT 08/26 CPT-J3420 Vitamin B12 1000mcg (Cyanocobalamin) 08:10:26 [employer] 04/12 CPT-30602 Abx/Therapy Injection 08:10:26 [employer] CPT-G0438 Initial Annual Wellness Exam 19:01:01 [employer] CPT-J3420 Vitamin B12 1000mcg (Cyanocobalamin) 16:57:46 CDT 08/14 CPT-66910 Recombivax HB Injection Suspension 5 MCG/0.5ML 08:37:50 [employer] CPT-42918 Immunization Single Admin 08:37:50 [employer] CPT-J3420 Vitamin B12 1000mcg (Cyanocobalamin) 08:32:16 [employer] 03/11 CPT-38710 Abx/Therapy Injection 08:32:16 [employer] CPT-09946 Chest 2V Frontal and Lat 11:46:38 [employer] CPT-12890 Venipuncture Draw Fee 09:12:45 [employer] CPT-J3420 Vitamin B12 1000mcg (Cyanocobalamin) 08:50:15 [employer] 02/08 CPT-10921 Abx/Therapy Injection 08:50:15 [employer] CPT-Cryo Cryotherapy 10:19:35 [employer] CPT-000 Give Appropriate Flu Vaccine 09:22:16 CDT CPT-J3420 Vitamin B12 1000mcg (Cyanocobalamin) 19:08:57 CDT 01/11 CPT-67900 Abx/Therapy Injection 19:08:57 CDT CPT-J3420 Vitamin B12 1000mcg (Cyanocobalamin) 08:19:08 CDT 12/11 CPT-90087 Abx/Therapy Injection 08:19:08 CDT CPT-J3420 Vitamin B12 1000mcg (Cyanocobalamin) 14:48:00 CDT 11/09 CPT-23716 Abx/Therapy Injection 14:47:59 CDT CPT-J3420 Vitamin B12 1000mcg (Cyanocobalamin) 08:34:04 CDT 10/09 CPT-62938 Abx/Therapy Injection 08:34:04 CDT CPT-J3420 Vitamin B12 1000mcg (Cyanocobalamin) 09:18:52 CDT 09/11 CPT-50369 Abx/Therapy Injection 09:18:52 CDT CPT-J3420 Vitamin B12 1000mcg (Cyanocobalamin) 08:35:44 CDT 09/04 CPT-19360 Abx/Therapy Injection 08:35:44 CDT CPT-01919 Immunization Single Admin 11:07:16 CDT CPT-74821 Hepatitis B adult IM 11:07:16 CDT CPT-J3420 Vitamin B12 1000mcg (Cyanocobalamin) 11:00:49 CDT 08/28 CPT-J1040 Depo Medrol 80 mg (Methyl Prednisolone Acetate) 11:00: 49 CDT CPT-99216 Abx/Therapy Injection 11:00:49 CDT CPT-J1040 Depo Medrol 80 mg (Methyl Prednisolone Acetate) 09:16: 23 CDT CPT-J3420 Vitamin B12 1000mcg (Cyanocobalamin) 08:27:05 CDT 08/20 CPT-29381 Abx/Therapy Injection 08:27:05 CDT CPT-19313 Recombivax HB Injection Suspension 5 MCG/0.5ML 10:00:41 CDT CPT-95671 Administration single or combination vaccine inc oral 10 :00:41 CDT CPT-45366 Sono transvag pelvis non OB uterus ovaries cervix 16:36: 57 CDT CPT-15344 LS spine comp w obliq 09:50:55 [employer] CPT-23755 Abd compl w upright 09:50:55 [employer] CPT-J1100 Decadron 4mg (Dexamethasone) 15:51:24 [employer] CPT-J1030 Depo Medrol 40 mg (Methyl Prednisolone Acetate) 15:51: 24 [employer] CPT-17156 Abx/Therapy Injection 15:51:24 [employer] CPT-J1100 Decadron 4mg (Dexamethasone) 15:26:33 [employer] CPT-J1030 Depo Medrol 40 mg (Methyl Prednisolone Acetate) 15:26: 33 [employer] CPT-38654 Sono retroperitoneal complete kidneys and bladder 17:15: 30 CDT CPT-40875 Abd compl w upright 16:09:25 CDT CPT-J1100 Decadron 8mg (Dexamethasone) 17:07:57 CDT CPT-46288 Abx/Therapy Injection 17:07:57 CDT CPT-J1100 Decadron 8mg (Dexamethasone) 16:55:24 CDT CPT-58692 Chest 2V Frontal and Lat 16:32:44 CDT
--- OUTSIDE RECORDS SUMMARY | 2016-11-05 01:38 | XMS REPORT | Clinical Summary ---
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 Hypoxemia Neck pain 723.1 Resolved Vishal Hui [...] of sutures ICD-V58.32 Inactive Vishal Hui MD 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 Inactive Vishal Hui MD Personality change ICD-301.9 [...] Asthma, acute ICD-493.92 Inactive Vishal Hui MD Fatigue ICD-780.79 Inactive Vishal Hui MD 2014 Hot flashes ICD-627.2 Inactive Vishal Hui MD Cellulitis and abscess of breast ICD-611.0 Inactive Ahmet Carbajal MD Bronchitis, acute ICD-466.0 Inactive Ahmet Carbajal MD Medication List Medication Instructions Start Date Stop Date Generic Name NDC Status Provider Patient Instruction CLONAZEPAM 1 MG ORAL TABS 1 twice a day and an additional 1 tablet every other day as needed for pseudoseizures or anxiety CLONAZEPAM 72408767875 Active Ahmet Carbajal MD Active HYDROCODONE-ACETAMINOPHEN 5-325 MG ORAL TABS 1 tab two times a day HYDROCODONE-ACETAMINOPHEN 55216877000 No Longer Active Ahmet Carbajal MD Active LAMICTAL 100 MG ORAL TABS 1 tab 2 times qd. LAMOTRIGINE 49082928054 Active Ahmet Carbajal MD Active PREDNISONE 20 MG TABS 2 daily for 5 days then 1 daily for 5 days PREDNISONE 28485298500 No Longer Active Ahmet Carbajal MD Active FLUTICASONE PROPIONATE 50 MCG/ACT SUSP 1 to 2 sprays each nostril daily for allergies FLUTICASONE PROPIONATE 12950264927 Active Tila Valenzuela Active GUAIFENESIN-CODEINE 100-10 MG/5ML SYRP 5ml every 4 to 6 hours as needed for cough GUAIFENESIN-CODEINE 72318233865 Active Ahmet Carbajal MD Active BENADRYL 25 MG CAP 4 po at bedtime for insomnia DIPHENHYDRAMINE HCL 21623321873 No Longer Active Ahmet Carbajal MD Active ADVAIR DISKUS 250-50 MCG/DOSE INH AEPB 1 puff twice a day for asthma FLUTICASONE-SALMETEROL 58640430060 No Longer Active Ahmet Carbajal MD Active KLONOPIN 1 MG ORAL TABS 1 tab po TID CLONAZEPAM 44155336949 No Longer Active Ahmet Carbajal MD Active ABILIFY MAINTENA 400 MG IM SUSR 400mg injection every 26 days ARIPIPRAZOLE 54237372471 No Longer Active Ahmet Carbajal MD Active HALOPERIDOL 10 MG ORAL TABS 1 tab q.d HALOPERIDOL 95720929358 Active Ahmet Carbajal MD Active ASPIRIN 325 MG ORAL TABS 1 tab q.d ASPIRIN 70202036711 Active Ahmet Carbajal MD Active TRAMADOL HCL 50 MG TABS 1/2-1 tab TID PRN TRAMADOL HCL 03499207498 No Longer Active Ahmet Carbajal MD Active BACTRIM DS 800-160 MG TABS 1 twice a day SULFAMETHOXAZOLE- TRIMETHOPRIM 60491851578 No Longer Active Ahmet Carbajal MD Active PROAIR HFA 108 (90 BASE) MCG/ACT AERS 2 puffs four times a day as needed 2015 ALBUTEROL SULFATE 19040944368 Active Ahmet Carbajal MD Active EQ NICOTINE 21 MG/24HR TRANS PT24 Apply daily to stop smoking NICOTINE 29850937321 Active Ahmet Carbajal MD Active MONISTAT 7 COMBO PACK WOODROW 100 & 2 MG-% (9GM) VAG KIT 1 applicatorful per vagina q pm x 7 MICONAZOLE NITRATE 96530391573 No Longer Active Ahmet Carbajal MD Active FLAGYL 500 MG TAB 1 tablet by mouth bid METRONIDAZOLE 20143678684 No Longer Active Ahmet Carbajal MD Active OXYCODONE HCL ER 10 MG ORAL T12A 1/2 tab by mouth every 4 hours prn OXYCODONE HCL 05602392727 No Longer Active Ahmet Carbaajl MD Active METHYLPREDNISOLONE 4 MG ORAL TABS po daily METHYLPREDNISOLONE 50531844597 No Longer Active Ahmet Carbajal MD Active LEVOFLOXACIN 500 MG ORAL TABS po daily LEVOFLOXACIN 52305682163 No Longer Active Ahmet Carbajal MD Active VIIBRYD 10 MG ORAL TABS Take 1 tablet once a day VILAZODONE HCL 80189431337 No Longer Active Ahmet Carbajal MD Active TOPAMAX 50 MG ORAL TABS 1 tab twice daily TOPIRAMATE 51908460151 No Longer Active Ahmet Carbajal MD Active DICLOFENAC SODIUM 50 MG TBEC 1 tablet by mouth four times daily PRN Pain 2015 DICLOFENAC SODIUM 04447502186 No Longer Active Ahmet Carbajal MD Active ADZENYS XR-ODT 6.3 MG ORAL TBED 1 tab po daily for ADHD AMPHETAMINE 35805103080 No Longer Active Ahmet Carbajal MD Active CHANTIX 1 MG TABS 1 twice a day to help quit smoking VARENICLINE TARTRATE 60806691557 No Longer Active Dipika Burgos MD Active CHANTIX STARTING MONTH EARNEST 0.5 MG X 11 & 1 MG X 42 TABS take as directed 2015 VARENICLINE TARTRATE 35062773522 No Longer Active Dipika Burgos MD Active TESSALON PERLES 100 MG CAP 1 to 2 tablets by mouth 3 times daily as needed for cough BENZONATATE 69459896409 No Longer Active Luigi Martínez APRN Active IMITREX 50 MG ORAL TABS 0.5 po x 1 PRN Headache. May repeat dose x 1 in 2 hours if needed SUMATRIPTAN SUCCINATE 10373424351 Active Ahmet Carbajal MD Active HYDROCODONE-ACETAMINOPHEN 5-325 MG TABS 1 to 2 four times a day as needed for pain use until can be seen by specialist HYDROCODONE- ACETAMINOPHEN 52137955826 No Longer Active Vishal Hui MD Active PROAIR HFA 108 (90 BASE) MCG/ACT AERS 2 puffs four times a day as needed 2015 ALBUTEROL SULFATE 98668162269 No Longer Active Vishal Hui MD Active PREDNISONE 20 MG TABS 2 daily for 5 days then 1 daily for 5 days PREDNISONE 33178921345 No Longer Active Vishal Hui MD Active ZITHROMAX Z-EARNEST 250 MG TABS 2 today and then 1 daily for 4 days AZITHROMYCIN 52987352896 No Longer Active Vishal Hui MD Active DICLOFENAC POTASSIUM TABS Take 1 tablet twice a day (pt. is not sure of the dose.) DICLOFENAC POTASSIUM TABS 14318824358 No Longer Active Vishal Hui MD Active VERAPAMIL HCL ER 120 MG ORAL CR-TABS Take 1 tablet by mouth twice a day. VERAPAMIL HCL 85181447169 Active Vishal Hui MD Active FLAGYL 500 MG TAB 1 tablet by mouth bid METRONIDAZOLE 40340819611 No Longer Active Vishal Hui MD Active FLUTICASONE PROPIONATE 50 MCG/ACT SUSP 2 sprays each nostril daily before bed. FLUTICASONE PROPIONATE 07291511132 Active Fabiola Johnson APRN Active VALIUM 5 MG TAB Take 1-2 tablets daily DIAZEPAM 85892646378 No Longer Active Fabiola Johnson APRN Active METOPROLOL TARTRATE 25 MG ORAL TABS 1/2 tablet twice daily for heart rate and blood pressure METOPROLOL TARTRATE 94356393742 No Longer Active Fabiola Johnson APRN Active MIRALAX ORAL POWD 17GMS DAILY IN WATER POLYETHYLENE GLYCOL 3350 33228091430 Active TAMARA Casey Active MIRALAX PACK 1 po qd PRN Constipation POLYETHYLENE GLYCOL 3350 73516958269 No Longer Active Ahmet Carbajal MD Active MINIPRESS 2 MG CAPS 4 cap po at night PRAZOSIN HCL 77713004944 No Longer Active Ahmet Carbajal MD Active PIROXICAM 20 MG CAPS 1 cap po qd PRN Pain PIROXICAM 57144105776 No Longer Active Ahmet Carbajal MD Active TRAMADOL HCL 50 MG TABS 1-2 po TID PRN Pain TRAMADOL HCL 50594684918 No Longer Active Ahmet Carbajal MD Active METOPROLOL TARTRATE 50 MG TAB 1 po bid METOPROLOL TARTRATE 21650497655 No Longer Active Ahmet Carbajal MD Active ABILIFY 15 MG ORAL TABS 1 tab daily ARIPIPRAZOLE 12864809817 No Longer Active Ahmet Carbajal MD Active PROZAC 20 MG ORAL CAPS 1 tab daily FLUOXETINE HCL 71253407679 No Longer Active Ahmet Carbajal MD Active AMBIEN 5 MG ORAL TABS 1 tab at bedtime ZOLPIDEM TARTRATE 73711281268 No Longer Active Ahmet Carbajal MD Active PREDNISONE 20 MG TAB 2 tabs daily for 4 days, 1 tab daily for 4 days, 1/2 tab daily for 4 days PREDNISONE 77128703384 No Longer Active Ahmet Carbajal MD Active KEFLEX 500 MG CAP 1 po TID x 10 days CEPHALEXIN 97697471897 No Longer Active Vishal Hui MD Active SAPHRIS 5 MG SUBL 1 po bid ASENAPINE MALEATE 05222417076 No Longer Active Jillina Frazell 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 LATUDA 80 MG TABS Take one by mouth daily LURASIDONE HCL 63087848952 No Longer Active Jillina Frazell 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 AMLODIPINE BESYLATE 5 MG TABS 1 tablet by mouth daily AMLODIPINE BESYLATE 39979631194 No Longer Active Jillina Frazell 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 AMITRIPTYLINE HCL 100 MG TAB one at hs AMITRIPTYLINE HCL 18490122673 No Longer Active Vishal Hui MD Active TRAZODONE HCL 100 MG TAB take 1 at bedtime TRAZODONE HCL 03017158589 No Longer Active Vishal Hui MD Active VYVANSE 40 MG CAPS 1 daily, LISDEXAMFETAMINE DIMESYLATE 63565712206 No Longer Active Vishal Hui MD Active IBUPROFEN 600 MG TAB 1 po TID PRN IBUPROFEN 55216993185 No Longer Active Vishal Hui MD Active PROZAC 20 MG CAP Take one by mouth daily FLUOXETINE HCL 23604019045 No Longer Active Vishal Hui MD Active ZOFRAN 4 MG TABS 1 po q6hr PRN Nausea ONDANSETRON HCL Active Vishal Hui MD Active BACTRIM DS 800-160 MG TABS 1 pill by mouth twice daily SULFAMETHOXAZOLE-TRIMETHOPRIM 86901371796 No Longer Active Sahara Rodriguez MD PhD Active DIFLUCAN 150 MG TAB 1 tablet by mouth daily FLUCONAZOLE 34093304238 No Longer Active Vishal Hui MD Active TIZANIDINE HCL 4 MG TABS 1 po q6hr PRN Muscle Spasm/Back Pain TIZANIDINE HCL 11883452121 Active Vishal Hui MD Active CLINDAMYCIN HCL 150 MG CAPS 1 four times a day CLINDAMYCIN HCL 73148651345 No Longer Active Neeraj Collins MD Active KEFLEX 500 MG ORAL CAPS 1 cap QID by mouth CEPHALEXIN 10557878236 No Longer Active Neeraj Collins MD Active DIFLUCAN 150 MG TABS 1 pill every other day x 2 doses FLUCONAZOLE 30725125806 No Longer Active Sahara Rodriguez MD PhD Active MELATONIN 3 MG CAPS 2 po q hs MELATONIN 10421324114 No Longer Active Sahara Rodriguez MD PhD Active MULTIVITAMINS CAPS Take one by mouth daily MULTIPLE VITAMIN 95601400792 No Longer Active Sahara Rodriguez MD PhD Active BACTRIM DS 800-160 MG TAB 1 tab by mouth twice daily TRIMETHOPRIM-SULFAMETHOXAZOLE 11029043269 No Longer Active Sahara Rodriguez MD PhD Active [facility] PROBIOTIC ORAL CHEW 2 daily po PROBIOTIC PRODUCT 01783936856 No Longer Active Sahara Rodriguez MD PhD Active BACTRIM DS 800-160 MG TABS 1 po BID x 7 days SULFAMETHOXAZOLE-TRIMETHOPRIM 45133786523 No Longer Active Vishal Hui MD Active CHANTIX STARTING MONTH EARNEST 0.5 MG X 11 & 1 MG X 42 TABS 0.5mg daily for 3 days , then 0.5mg BID for 4 days, then 1mg BID VARENICLINE TARTRATE 14748405508 No Longer Active TAMARA Gray Active VERAPAMIL HCL CR 120 MG TAB CR 1 po bid VERAPAMIL HCL 98729486440 No Longer Active Vishal Hui MD Active METOPROLOL SUCCINATE 50 MG TB24 1 tablet by mouth daily METOPROLOL SUCCINATE 24022660701 No Longer Active Vishal Hui MD Active SAPHRIS 10 MG SUBL 1 tab po bid ASENAPINE MALEATE 27388621403 No Longer Active Vishal Hui MD Active LISINOPRIL 20 MG TABS 1 tab po qd LISINOPRIL 51433099523 No Longer Active Vishal Hui MD Active LATUDA 20 MG TABS Take one by mouth daily LURASIDONE HCL 24668982068 No Longer Active Vishal Hui MD Active TRAZODONE HCL 50 MG TABS 1/2 tab po qd prn for anxiety TRAZODONE HCL 92606305344 No Longer Active Vishal Hui MD Active OMEPRAZOLE 20 MG TBEC 1 po q a.m. 30min prior to first food intake OMEPRAZOLE 37987105100 Active Vishal Hui MD Active RANITIDINE HCL 150 MG CAPS 1 twice a day RANITIDINE HCL 75252226336 Active Luigi Martínez APRN Active LINZESS 290 MCG CAPS Take one by mouth daily LINACLOTIDE 66625123726 No Longer Active Vishal Hui MD Active SAPHRIS 5 MG SUBL 1 tab po qd ASENAPINE MALEATE 72119155308 No Longer Active Vishal Hui MD Active ZALEPLON 10 MG CAPS 1 cap po every other night ZALEPLON 18838751559 No Longer Active Vishal Hui MD Active LYRICA 50 MG CAPS 1 tab po TID PREGABALIN 81347330422 No Longer Active Vishal Hui MD Active LORATADINE 10 MG TABS 1 tab po qd LORATADINE 25926081864 No Longer Active Vishal Hui MD Active VERAPAMIL HCL ER 180 MG CR-TABS 1 tab po bid VERAPAMIL HCL 45526842566 No Longer Active Vishal Hui MD Active MIRALAX POWD 1 capfull once daily POLYETHYLENE GLYCOL 3350 85611933893 No Longer Active Vishal Hui MD Active PREDNISONE 20 MG TABS 1 tab po qd PREDNISONE 60808017585 No Longer Active Renzo Thornton DO Active LEVOFLOXACIN 500 MG TABS 1 tab po qd LEVOFLOXACIN 73914096724 No Longer Active Renzo Thornton DO Active BUSPIRONE HCL 15 MG TABS 1 tab po TID BUSPIRONE HCL 75010890507 No Longer Active Renzo Thornton DO Active BENZTROPINE MESYLATE 1 MG TABS 1 tab po qd BENZTROPINE MESYLATE 74890222258 No Longer Active Renzo Thornton DO Active ATENOLOL 25 MG TABS 1 tab po qd ATENOLOL 15055227910 No Longer Active Renzo Thornton DO Active ESCITALOPRAM OXALATE 20 MG TABS 1 tab po qd ESCITALOPRAM OXALATE 66356414995 No Longer Active Renzo Thornton DO Active ADVAIR DISKUS 250-50 MCG/DOSE AEPB 1 puff BID FLUTICASONE-SALMETEROL 33911225700 No Longer Active Renzo Thornton DO Active PREDNISONE 20 MG TAB 2 tabs daily for 3 days, 1 tab daily for 3 days, 1/2 tab daily for 2 days PREDNISONE 78538886342 No Longer Active Vishal Hui MD Active CEFDINIR 300 MG CAPS by mouth twice a day CEFDINIR 83095804521 No Longer Active Vishal Hui MD Active LANSOPRAZOLE 30 MG CPDR 1 cap po qd LANSOPRAZOLE 48875875769 No Longer Active Vishal Hui MD Active BACLOFEN 20 MG TABS 1 tab po tid BACLOFEN 26292004170 No Longer Active Vishal Hui MD Active ADVAIR DISKUS 250-50 MCG/DOSE AEPB 1 puff BID ADVAIR DISKUS 250-50 MCG/DOSE AEPB FLUTICASONE-SALMETEROL Inactive ESCITALOPRAM OXALATE 20 MG TABS 1 tab po qd ESCITALOPRAM OXALATE 20 MG TABS 229992 ESCITALOPRAM OXALATE Inactive ATENOLOL 25 MG TABS 1 tab po qd ATENOLOL 25 MG TABS 721252 ATENOLOL Inactive BENZTROPINE MESYLATE 1 MG TABS 1 tab po qd BENZTROPINE MESYLATE 1 MG TABS 197585 BENZTROPINE MESYLATE Inactive BUSPIRONE HCL 15 MG TABS 1 tab po TID BUSPIRONE HCL 15 MG TABS 216823 BUSPIRONE HCL Inactive LEVOFLOXACIN 500 MG TABS 1 tab po qd LEVOFLOXACIN 500 MG TABS 231097 LEVOFLOXACIN Inactive PREDNISONE 20 MG TABS 1 tab po qd PREDNISONE 20 MG TABS 600868 PREDNISONE Inactive MIRALAX POWD 1 capfull once daily MIRALAX POWD 614754 POLYETHYLENE GLYCOL 3350 Inactive VERAPAMIL HCL ER 180 MG CR-TABS 1 tab po bid VERAPAMIL HCL ER 180 MG CR-TABS VERAPAMIL HCL Inactive LORATADINE 10 MG TABS 1 tab po qd LORATADINE 10 MG TABS 997452 LORATADINE Inactive LYRICA 50 MG CAPS 1 tab po TID LYRICA 50 MG CAPS PREGABALIN Inactive ZALEPLON 10 MG CAPS 1 cap po every other night ZALEPLON 10 MG CAPS 425601 ZALEPLON Inactive SAPHRIS 5 MG SUBL 1 tab po qd SAPHRIS 5 MG SUBL ASENAPINE MALEATE Inactive TRAZODONE HCL 50 MG TABS 1/2 tab po qd prn for anxiety TRAZODONE HCL 50 MG TABS 880026 TRAZODONE HCL Inactive LATUDA 20 MG TABS Take one by mouth daily LATUDA 20 MG TABS LURASIDONE HCL Inactive LISINOPRIL 20 MG TABS 1 tab po qd LISINOPRIL 20 MG TABS 846809 LISINOPRIL Inactive SAPHRIS 10 MG SUBL 1 [...] twice daily BACTRIM DS 800-160 MG TAB 911429 TRIMETHOPRIM-SULFAMETHOXAZOLE Inactive MULTIVITAMINS CAPS Take one by mouth daily MULTIVITAMINS CAPS MULTIPLE VITAMIN Inactive MELATONIN 3 MG CAPS 2 po q hs MELATONIN 3 MG CAPS 154144 MELATONIN Inactive KEFLEX 500 MG ORAL CAPS 1 cap QID by mouth KEFLEX 500 MG ORAL CAPS 320685 CEPHALEXIN Inactive CLINDAMYCIN HCL 150 MG CAPS 1 four times a day CLINDAMYCIN HCL 150 MG CAPS 19740326 CLINDAMYCIN HCL Inactive DIFLUCAN 150 MG TAB 1 tablet by mouth daily DIFLUCAN 150 MG TAB 606106 FLUCONAZOLE Inactive PROZAC 20 MG CAP Take one by mouth daily PROZAC 20 MG CAP 810020 FLUOXETINE HCL Inactive IBUPROFEN 600 MG TAB 1 po TID PRN IBUPROFEN 600 MG TAB 042727 IBUPROFEN Inactive VYVANSE 40 MG CAPS 1 daily, VYVANSE 40 MG CAPS LISDEXAMFETAMINE DIMESYLATE Inactive TRAZODONE HCL 100 MG TAB take 1 at bedtime TRAZODONE HCL 100 MG TAB 644649 TRAZODONE HCL Inactive AMITRIPTYLINE HCL 100 MG TAB one at hs AMITRIPTYLINE HCL 100 MG TAB 060496 AMITRIPTYLINE HCL Inactive AMLODIPINE BESYLATE 5 MG TABS 1 tablet by mouth daily AMLODIPINE BESYLATE 5 MG TABS 434021 AMLODIPINE BESYLATE Inactive LATUDA 80 MG TABS Take one by mouth daily LATUDA 80 MG TABS LURASIDONE HCL Inactive SAPHRIS 5 MG SUBL 1 po bid SAPHRIS 5 MG SUBL ASENAPINE MALEATE Inactive PREDNISONE 20 MG TAB 2 tabs daily for 4 days, 1 tab daily for 4 days, 1/2 tab daily for 4 days PREDNISONE 20 MG TAB 456956 PREDNISONE Inactive AMBIEN 5 MG ORAL TABS 1 tab at bedtime AMBIEN 5 MG ORAL TABS 173157 ZOLPIDEM TARTRATE Inactive PROZAC 20 MG ORAL CAPS 1 tab daily PROZAC 20 MG ORAL CAPS 362927 FLUOXETINE HCL Inactive ABILIFY 15 MG ORAL TABS 1 tab daily ABILIFY 15 MG ORAL TABS 486989 ARIPIPRAZOLE Inactive METOPROLOL TARTRATE 50 MG TAB 1 po bid METOPROLOL TARTRATE 50 MG TAB 062228 METOPROLOL TARTRATE Inactive TRAMADOL HCL 50 MG TABS 1-2 po TID PRN Pain TRAMADOL HCL 50 MG TABS 553823 TRAMADOL HCL Inactive PIROXICAM 20 MG CAPS 1 cap po qd PRN Pain PIROXICAM 20 MG CAPS 854857 PIROXICAM Inactive MINIPRESS 2 MG CAPS 4 cap po at night MINIPRESS 2 MG CAPS 251110 PRAZOSIN HCL Inactive MIRALAX PACK 1 po qd PRN Constipation MIRALAX PACK 832114 POLYETHYLENE GLYCOL 3350 Inactive METOPROLOL TARTRATE 25 MG ORAL TABS 1/2 tablet twice daily for heart rate and blood pressure METOPROLOL TARTRATE 25 MG ORAL TABS 849088 METOPROLOL TARTRATE Inactive VALIUM 5 MG TAB Take 1-2 tablets daily VALIUM 5 MG TAB 180412 DIAZEPAM Inactive FLAGYL 500 MG TAB 1 tablet by mouth bid FLAGYL 500 MG TAB 091550 METRONIDAZOLE Inactive DICLOFENAC POTASSIUM TABS Take 1 tablet twice a day (pt. is not sure of the dose.) DICLOFENAC POTASSIUM TABS DICLOFENAC POTASSIUM TABS Inactive ZITHROMAX Z-EARNEST 250 MG TABS 2 today and then 1 daily for 4 days ZITHROMAX Z-EARNEST 250 MG TABS 7543442 AZITHROMYCIN Inactive PREDNISONE 20 MG TABS 2 daily for 5 days then 1 daily for 5 days PREDNISONE 20 MG TABS 482897 PREDNISONE Inactive PROAIR HFA 108 (90 BASE) MCG/ACT AERS 2 puffs four times a day as needed 2015 PROAIR HFA 108 (90 BASE) MCG/ACT AERS ALBUTEROL SULFATE Inactive HYDROCODONE-ACETAMINOPHEN 5-325 MG TABS 1 to 2 four times a day as needed for pain use until can be seen by specialist HYDROCODONE- ACETAMINOPHEN 5-325 MG TABS 072709 HYDROCODONE-ACETAMINOPHEN Inactive TESSALON PERLES 100 MG CAP 1 to 2 tablets by mouth 3 times daily as needed for cough TESSALON PERLES 100 MG CAP 583792 BENZONATATE Inactive CHANTIX STARTING MONTH EARNEST 0.5 [...] Pain 2015 DICLOFENAC SODIUM 50 MG TBEC 478157 DICLOFENAC SODIUM Inactive TOPAMAX 50 MG ORAL TABS 1 tab twice daily TOPAMAX 50 MG ORAL TABS 659944 TOPIRAMATE Inactive VIIBRYD 10 MG ORAL TABS Take 1 tablet once a day VIIBRYD 10 MG ORAL TABS VILAZODONE HCL Inactive LEVOFLOXACIN 500 MG ORAL TABS po daily LEVOFLOXACIN 500 MG ORAL TABS 649109 LEVOFLOXACIN Inactive METHYLPREDNISOLONE 4 MG ORAL TABS po daily METHYLPREDNISOLONE 4 MG ORAL TABS 596623 METHYLPREDNISOLONE Inactive OXYCODONE HCL ER 10 MG ORAL T12A 1/2 tab by mouth every 4 hours prn OXYCODONE HCL ER 10 MG ORAL T12A OXYCODONE HCL Inactive FLAGYL 500 MG TAB 1 tablet by mouth bid FLAGYL 500 MG TAB 555453 METRONIDAZOLE Inactive MONISTAT 7 COMBO PACK WOODROW 100 & 2 MG-% (9GM) VAG KIT 1 applicatorful per vagina q pm x 7 MONISTAT 7 COMBO PACK WOODROW 100 & 2 MG-% (9GM) VAG KIT MICONAZOLE NITRATE Inactive BACTRIM DS 800-160 MG TABS 1 twice a day BACTRIM DS 800-160 MG TABS 714814 SULFAMETHOXAZOLE-TRIMETHOPRIM Inactive TRAMADOL HCL 50 MG TABS 1/2-1 tab TID PRN TRAMADOL HCL 50 MG TABS 637562 TRAMADOL HCL Inactive ABILIFY MAINTENA 400 MG IM SUSR 400mg injection every 26 days ABILIFY MAINTENA 400 MG IM SUSR ARIPIPRAZOLE Inactive KLONOPIN 1 MG ORAL TABS 1 tab po TID KLONOPIN 1 MG ORAL TABS 118193 CLONAZEPAM Inactive ADVAIR DISKUS 250-50 MCG/DOSE INH AEPB 1 puff twice a day for asthma ADVAIR DISKUS 250-50 MCG/DOSE INH AEPB FLUTICASONE- SALMETEROL Inactive BENADRYL 25 MG CAP 4 po at bedtime for insomnia BENADRYL 25 MG CAP DIPHENHYDRAMINE HCL Inactive PREDNISONE 20 MG TABS 2 daily for 5 days then 1 daily for 5 days PREDNISONE 20 MG TABS 232441 PREDNISONE Inactive HYDROCODONE-ACETAMINOPHEN 5-325 MG ORAL TABS 1 tab two times a day HYDROCODONE-ACETAMINOPHEN 5-325 MG ORAL TABS 790340 HYDROCODONE-ACETAMINOPHEN Inactive CEFDINIR 300 MG CAPS by mouth twice a day CEFDINIR 300 MG CAPS 166897 CEFDINIR Inactive PREDNISONE 20 MG TAB 2 tabs daily for 3 days, 1 tab daily for 3 days, 1/2 tab daily for 2 days PREDNISONE 20 MG TAB 060341 PREDNISONE Inactive BACTRIM DS 800-160 MG TABS 1 po BID x 7 days BACTRIM DS 800-160 MG TABS 19820521 SULFAMETHOXAZOLE-TRIMETHOPRIM Inactive DIFLUCAN 150 MG TABS 1 pill every other day x 2 doses DIFLUCAN 150 MG TABS 007366 FLUCONAZOLE Inactive BACTRIM DS 800-160 MG TABS 1 pill by mouth twice daily BACTRIM DS 800-160 MG TABS 870907 SULFAMETHOXAZOLE-TRIMETHOPRIM Inactive KEFLEX 500 MG CAP 1 po TID x 10 days KEFLEX 500 MG CAP 392232 CEPHALEXIN Inactive Advance Directives Directive Description Start [...] 369 10^3/MM^3 10*3/mm3 142-424 Lab Report: Chlamydia/GC APTIMA/[id number] - Lab chlamydia DNA probe NOT DETECTED NOT DETECTED Lab Report: Chlamydia/GC APTIMA/[id number] - Microbiology Neisseria gonorrhoeae DNA probe NOT DETECTED NOT DETECTED Lab Report: Comp. Metabolic Panel - Chemistry sodium, serum 142 mmol/L 442-610 4396/06/08 carbon dioxide, venous blood 27.6 mmol/L 21.0-32.0 potassium, serum 4.0 mmol/L 3.5-5.2 chloride, serum 105 mmol/L 98-107 blood glucose 95 mg/dL 65-110 urea nitrogen, blood 8 mg/dL 7-18 creatinine, serum 0.75 mg/dL 0.55-1.30 alanine aminotransferase (SGPT), serum 49 U/L - aspartate aminotransferase (SGOT), serum 28 U/L 15-37 calcium, serum 9.4 mg/dL 8.5-10.1 bilirubin, serum, total 0.30 mg/dL 0.00-1.00 sodium, serum 140 mmol/L 165-379 3272/08/08 carbon dioxide, venous blood 33.7 mmol/L 21.0-32.0 [...] mg/dL Encounters Code Encounter Date Provider Facility CPT-56715 Level 3 Est. Patient 11:47:37 PURIFICATION SUPERVISOR Ahmet Carbajal MD [facility] CPT-09907 Level 3 Est. Patient 10:40:11 PURIFICATION SUPERVISOR Ahmet Carbajal MD [facility] CPT-06505 Level 3 Est. Patient 15:07:06 PURIFICATION SUPERVISOR Neeraj Collins MD [facility] CPT-97915 Level 4 Est. Patient 14:45:00 PURIFICATION SUPERVISOR Ahmet Carbajal MD [facility] CPT-70907 Level 3 Est. Patient 13:59:59 CDT Luigi Martínez [facility] CPT-42365 Level 3 Est. Patient 18:18:53 CDT Neeraj Collins MD [facility] CPT-53152 Level 3 Est. Patient 15:50:44 CDT Vishal Hui MD [facility] CPT-50576 Level 3 Est. Patient 11:36:17 CDT Ahmet Carbajal MD [facility] CPT-06795 Level 3 Est. Patient 13:29:16 CDT Vishal Hui MD [facility] CPT-93870 Level 3 Est. Patient 14:27:52 CDT Neeraj Collins MD [facility] CPT-03121 Level 3 Est. Patient 08:56:03 CDT Luigi Martínez [facility] CPT-51658 Level 4 Est. Patient 12:11:48 CDT Fabiola Johnson [facility] CPT-45096 Level 3 New Patient 16:53:37 CDT Albert Caldera MD [facility] CPT-58406 Level 3 Est. Patient 11:25:49 CDT Renzo Thornton DO [facility] CPT-26838 Level 3 Est. Patient 15:22:01 CDT Ahmet Carbajal MD [facility] CPT-87652 Level 4 Est. Patient 09:00:51 PURIFICATION SUPERVISOR Vishal Hui MD [facility] CPT-40715 Level 3 Est. Patient 11:37:33 PURIFICATION SUPERVISOR Vishal Hui MD [facility] CPT-73031 Level 3 Est. Patient 08:41:09 PURIFICATION SUPERVISOR Vishal Hui MD [facility] CPT-19403 Level 4 Est. Patient 10:19:35 PURIFICATION SUPERVISOR Vishal Hui MD [facility] CPT-04714 Level 3 Est. Patient 13:35:45 CDT Vishal Hui MD [facility] CPT-43548 Level 4 Est. Patient 10:08:37 CDT Vishal Hui MD [facility] CPT-77991 Level 3 Est. Patient 11:22:10 CDT Vishal Hui MD [facility] CPT-07821 Level 3 Est. Patient 11:03:32 CDT Sahara Rodriguez MD [facility] CPT-38737 Level 3 Est. Patient 09:41:35 CDT Vishal Hui MD [facility] CPT-88997 Level 3 Est. Patient 12:00:41 CDT Neeraj Collins MD [facility] CPT-41444 Level 3 Est. Patient 09:16:24 CDT Vishal Hui MD [facility] CPT-40440 Level 4 Est. Patient 13:59:09 CDT Neeraj Collins MD [facility] CPT-73444 Level 3 Est. Patient 15:19:43 CDT Renzo Thornton DO [facility] CPT-92795 Level 3 Est. Patient 18:10:26 CDT Sahara Rodriguez MD [facility]-48940 Level 3 Est. Patient 14:49:50 CDT Vishal Hui MD [facility] CPT-90056 Level 4 Est. Patient 18:41:46 CDT Neeraj Collins MD [facility] CPT-08241 Level 4 Est. Patient 09:18:38 PURIFICATION SUPERVISOR Vishal Hui MD [facility] CPT-78582 Level 3 Est. Patient 14:43:55 PURIFICATION SUPERVISOR Vishal Hui MD [facility] CPT-31484 Level 3 Est. Patient 15:26:33 PURIFICATION SUPERVISOR [place] Rodriguez MD, PhD [facility] CPT-04554 Level 3 Est. Patient 10:32:14 PURIFICATION SUPERVISOR Vishal Hui MD [facility] CPT-78598 Level 3 Est. Patient 15:12:52 PURIFICATION SUPERVISOR Vishal Hui MD [facility] CPT-71483 Level 4 Est. Patient 09:19:27 CDT Vishal Hui MD [facility] CPT-82216 Level 3 Est. Patient 15:53:00 CDT Renzo Thornton [facility] CPT-12513 Level 3 Est. Patient 15:50:30 CDT Renzo Thornton [facility] CPT-47525 Level 3 Est. Patient 16:55:24 CDT Vishal Hui MD [facility] Procedures Code Procedure Name Date Entry Date Standard Description CPT-G0439 [facility] Annual Wellness Exam 09:30:58 PURIFICATION SUPERVISOR CPT-38095 TSH - LAB USE ONLY 08:50:26 PURIFICATION SUPERVISOR CPT-94165 CBC - LAB USE ONLY 08:50:26 PURIFICATION SUPERVISOR CPT-78657 Venipuncture Draw Fee 08:50:26 PURIFICATION SUPERVISOR CPT-27688 Abx/Therapy Injection 17:34:30 PURIFICATION SUPERVISOR CPT-20935 Nexplanon Removal with Reinsertion 14:09:32 CDT CPT-J7307 Nexplanon (Implant) 14:09:32 CDT CPT-OV Office Visit 14:09:32 CDT CPT-73140 UA w micro - LAB USE ONLY 16:21:13 CDT CPT-03706 Wet Mount - LAB USE ONLY 16:21:13 CDT CPT-72681 First Vx - Ix admin for Medicare patients 14:37:47 CDT CPT-82543 Fluzone Preservative Free Intramuscular Suspension 14:37 :47 CDT CPT-33522 Abx/Therapy Injection 13:54:22 CDT CPT-01807 Abx/Therapy Injection 08:47:09 CDT CPT-09939 Abx/Therapy Injection 13:29:56 CDT CPT-48235 Abx/Therapy Injection 08:36:16 CDT CPT-42692 Wet Mount - LAB USE ONLY 17:44:58 CDT CPT-70846 UA w micro - LAB USE ONLY 17:44:58 CDT CPT-80256 CMP - LAB USE ONLY 17:44:58 CDT CPT-98773 Venipuncture Draw Fee 17:44:58 CDT CPT-09329 Cervical Min 4V - XRAY USE ONLY 09:01:40 CDT CPT-84427 Chest 2V Frontal and Lat - XRAY USE ONLY 11:06:31 CDT CPT-61894 EKG Trac and Interp - XRAY USE ONLY 11:31:43 CDT 08/26 CPT-J3420 Vitamin B12 1000mcg (Cyanocobalamin) 08:10:26 PURIFICATION SUPERVISOR 04/12 CPT-65908 Abx/Therapy Injection 08:10:26 PURIFICATION SUPERVISOR CPT-G0438 Initial Annual Wellness Exam 19:01:01 PURIFICATION SUPERVISOR CPT-J3420 Vitamin B12 1000mcg (Cyanocobalamin) 16:57:46 CDT 08/14 CPT-26296 Recombivax HB Injection Suspension 5 MCG/0.5ML 08:37:50 PURIFICATION SUPERVISOR CPT-89943 Immunization Single Admin 08:37:50 PURIFICATION SUPERVISOR CPT-J3420 Vitamin B12 1000mcg (Cyanocobalamin) 08:32:16 PURIFICATION SUPERVISOR 03/11 CPT-92003 Abx/Therapy Injection 08:32:16 PURIFICATION SUPERVISOR CPT-44075 Chest 2V Frontal and Lat 11:46:38 PURIFICATION SUPERVISOR CPT-65189 Venipuncture Draw Fee 09:12:45 PURIFICATION SUPERVISOR CPT-J3420 Vitamin B12 1000mcg (Cyanocobalamin) 08:50:15 PURIFICATION SUPERVISOR 02/08 CPT-85181 Abx/Therapy Injection 08:50:15 PURIFICATION SUPERVISOR CPT-Cryo Cryotherapy 10:19:35 PURIFICATION SUPERVISOR CPT-000 Give Appropriate Flu Vaccine 09:22:16 CDT CPT-J3420 Vitamin B12 1000mcg (Cyanocobalamin) 19:08:57 CDT 01/11 CPT-91585 Abx/Therapy Injection 19:08:57 CDT CPT-J3420 Vitamin B12 1000mcg (Cyanocobalamin) 08:19:08 CDT 12/11 CPT-87003 Abx/Therapy Injection 08:19:08 CDT CPT-J3420 Vitamin B12 1000mcg (Cyanocobalamin) 14:48:00 CDT 11/09 CPT-04581 Abx/Therapy Injection 14:47:59 CDT CPT-J3420 Vitamin B12 1000mcg (Cyanocobalamin) 08:34:04 CDT 10/09 CPT-63146 Abx/Therapy Injection 08:34:04 CDT CPT-J3420 Vitamin B12 1000mcg (Cyanocobalamin) 09:18:52 CDT 09/11 CPT-90085 Abx/Therapy Injection 09:18:52 CDT CPT-J3420 Vitamin B12 1000mcg (Cyanocobalamin) 08:35:44 CDT 09/04 CPT-65288 Abx/Therapy Injection 08:35:44 CDT CPT-90021 Immunization Single Admin 11:07:16 CDT CPT-50639 Hepatitis B adult IM 11:07:16 CDT CPT-J3420 Vitamin B12 1000mcg (Cyanocobalamin) 11:00:49 CDT 08/28 CPT-J1040 Depo Medrol 80 mg (Methyl Prednisolone Acetate) 11:00: 49 CDT CPT-41263 Abx/Therapy Injection 11:00:49 CDT CPT-J1040 Depo Medrol 80 mg (Methyl Prednisolone Acetate) 09:16: 23 CDT CPT-J3420 Vitamin B12 1000mcg (Cyanocobalamin) 08:27:05 CDT 08/20 CPT-63414 Abx/Therapy Injection 08:27:05 CDT CPT-77571 Recombivax HB Injection Suspension 5 MCG/0.5ML 10:00:41 CDT CPT-09688 Administration single or combination vaccine inc oral 10 :00:41 CDT CPT-32160 Sono transvag pelvis non OB uterus ovaries cervix 16:36: 57 CDT CPT-48685 LS spine comp w obliq 09:50:55 PURIFICATION SUPERVISOR CPT-24198 Abd compl w upright 09:50:55 PURIFICATION SUPERVISOR CPT-J1100 Decadron 4mg (Dexamethasone) 15:51:24 PURIFICATION SUPERVISOR CPT-J1030 Depo Medrol 40 mg (Methyl Prednisolone Acetate) 15:51: 24 PURIFICATION SUPERVISOR CPT-27304 Abx/Therapy Injection 15:51:24 PURIFICATION SUPERVISOR CPT-J1100 Decadron 4mg (Dexamethasone) 15:26:33 PURIFICATION SUPERVISOR CPT-J1030 Depo Medrol 40 mg (Methyl Prednisolone Acetate) 15:26: 33 PURIFICATION SUPERVISOR CPT-13473 Sono retroperitoneal complete kidneys and bladder 17:15: 30 CDT CPT-15986 Abd compl w upright 16:09:25 CDT CPT-J1100 Decadron 8mg (Dexamethasone) 17:07:57 CDT CPT-56184 Abx/Therapy Injection 17:07:57 CDT CPT-J1100 Decadron 8mg (Dexamethasone) 16:55:24 CDT CPT-48678 Chest 2V Frontal and Lat 16:32:44 CDT
--- OUTSIDE RECORDS SUMMARY | 2016-11-05 01:40 | XMS REPORT | Clinical Summary ---
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 Headache Elevated blood glucose 790.29 Resolved Vishal [...] MD Vaginitis ICD-616.10 Inactive Vishal Hui MD Medication List Medication Instructions Start Date Stop Date Generic Name NDC Status Provider Patient Instruction PREDNISONE 20 MG TAB 2 tabs daily for 4 days, 1 tab daily for 4 days, 1/2 tab daily for 4 days PREDNISONE 45387627713 Active Vishal Hui MD Active IMITREX 50 MG ORAL TABS 1/2 tab every 6 hours prn SUMATRIPTAN SUCCINATE 71972167368 Active Jillina Mauricio NORIEGA Active AMBIEN 5 MG ORAL TABS 1 tab at bedtime ZOLPIDEM TARTRATE 93189432279 Active Jillina Johnl STRUCTURAL STEEL WORKER Active PROZAC 20 MG ORAL CAPS 1 tab daily FLUOXETINE HCL 32696288865 Active Jillina Fradwightl STRUCTURAL STEEL WORKER Active ABILIFY 15 MG ORAL TABS 1 tab daily ARIPIPRAZOLE 50747695484 Active Jillina Frazell STRUCTURAL STEEL WORKER Active MINIPRESS 2 MG CAPS 4 cap po at night PRAZOSIN HCL 55688953795 Active Jillina Frazell STRUCTURAL STEEL WORKER Active TOPAMAX 50 MG ORAL TABS 1 tab twice daily TOPIRAMATE 31243048557 Active Pacollina Fradwightl STRUCTURAL STEEL WORKER Active SAPHRIS 5 MG SUBL 1 po bid ASENAPINE MALEATE 63338610094 No Longer Active Pacollina Mauricio WALTERSN Active LATUDA 80 MG TABS Take one by mouth daily LURASIDONE HCL 61253526816 No Longer Active Jillina Fralebron WALTERSN Active AMLODIPINE BESYLATE 5 MG TABS 1 tablet by mouth daily AMLODIPINE BESYLATE 94858702785 No Longer Active Tataina Mauricio WALTERSN Active AMITRIPTYLINE HCL 100 MG TAB one at hs AMITRIPTYLINE HCL 73326004017 No Longer Active Vishal Hui MD Active TRAZODONE HCL 100 MG TAB take 1 at bedtime TRAZODONE HCL 94311353237 No Longer Active Vishal Hui MD Active VYVANSE 40 MG CAPS 1 daily, LISDEXAMFETAMINE DIMESYLATE 81543714705 No Longer Active Vishal Hui MD Active IBUPROFEN 600 MG TAB 1 po TID PRN IBUPROFEN 33821216143 No Longer Active Vishal Hui MD Active MIRALAX PACK 1 po qd PRN Constipation POLYETHYLENE GLYCOL 3350 64045777490 Active Vishal Hui MD Active PROZAC 20 MG CAP Take one by mouth daily FLUOXETINE HCL 07402828780 No Longer Active Vishal Hui MD Active ZOFRAN 4 MG TABS 1 po q6hr PRN Nausea ONDANSETRON HCL Active Vishal Hui MD Active BACTRIM DS 800-160 MG TABS 1 pill by mouth twice daily SULFAMETHOXAZOLE-TRIMETHOPRIM 45756095771 No Longer Active Sahara Rodriguez MD PhD Active DIFLUCAN 150 MG TAB 1 tablet by mouth daily FLUCONAZOLE 90598685768 No Longer Active Vishal Hui MD Active TIZANIDINE HCL 4 MG TABS 1 po q6hr PRN Muscle Spasm/Back Pain TIZANIDINE HCL 70937480417 Active Vishal Hui MD Active CLINDAMYCIN HCL 150 MG CAPS 1 four times a day CLINDAMYCIN HCL 45054237575 No Longer Active Neeraj Collins MD Active KEFLEX 500 MG ORAL CAPS 1 cap QID by mouth CEPHALEXIN 40559051314 No Longer Active Neeraj Collins MD Active DIFLUCAN 150 MG TABS 1 pill every other day x 2 doses FLUCONAZOLE 33854715883 No Longer Active Sahara Rodriguez MD PhD Active MELATONIN 3 MG CAPS 2 po q hs MELATONIN 79287390787 No Longer Active Sahara Rodriguez MD PhD Active MULTIVITAMINS CAPS Take one by mouth daily MULTIPLE VITAMIN 94822547656 No Longer Active Sahara Rodriguez MD PhD Active BACTRIM DS 800-160 MG TAB 1 tab by mouth twice daily TRIMETHOPRIM-SULFAMETHOXAZOLE 35873026864 No Longer Active Sahara Rodriguez MD PhD Active [facility] PROBIOTIC ORAL CHEW 2 daily po PROBIOTIC PRODUCT 97953465616 No Longer Active Sahara Rodriguez MD PhD Active BACTRIM DS 800-160 MG TABS 1 po BID x 7 days SULFAMETHOXAZOLE-TRIMETHOPRIM 93480788707 No Longer Active Vishal Hui MD Active CHANTIX STARTING MONTH EARNEST 0.5 MG X 11 & 1 MG X 42 TABS 0.5mg daily for 3 days , then 0.5mg BID for 4 days, then 1mg BID VARENICLINE TARTRATE 76882250324 No Longer Active TAMARA Gray Active METOPROLOL TARTRATE 50 MG TAB 1 po bid METOPROLOL TARTRATE 13583148691 Active Vishal Hui MD Active VERAPAMIL HCL CR 120 MG TAB CR 1 po bid VERAPAMIL HCL 02683567624 No Longer Active Vishal Hui MD Active METOPROLOL SUCCINATE 50 MG TB24 1 tablet by mouth daily METOPROLOL SUCCINATE 72522825850 No Longer Active Vishal Hui MD Active TRAMADOL HCL 50 MG TABS 1-2 po TID PRN Pain TRAMADOL HCL 51595957311 Active Vishal Hui MD Active SAPHRIS 10 MG SUBL 1 tab po bid ASENAPINE MALEATE 16775293833 No Longer Active Vishal Hui MD Active LISINOPRIL 20 MG TABS 1 tab po qd LISINOPRIL 42192963037 No Longer Active Vishal Hui MD Active BENADRYL 25 MG CAP 2 po tid prn anxiety DIPHENHYDRAMINE HCL 29780585354 Active Vishal Hui MD Active LATUDA 20 MG TABS Take one by mouth daily LURASIDONE HCL 04060021187 No Longer Active Vishal Hui MD Active TRAZODONE HCL 50 MG TABS 1/2 tab po qd prn for anxiety TRAZODONE HCL 41659605490 No Longer Active Vishal Hui MD Active PIROXICAM 20 MG CAPS 1 cap po qd PRN Pain PIROXICAM 51066086411 Active Vishal Hui MD Active OMEPRAZOLE 20 MG TBEC 1 po q a.m. 30min prior to first food intake OMEPRAZOLE 44078369292 Active Vishal Hui MD Active RANITIDINE HCL 150 MG CAPS 1 twice a day RANITIDINE HCL 32317993467 Active Vishal Hui MD Active LINZESS 290 MCG CAPS Take one by mouth daily LINACLOTIDE 39507760756 No Longer Active Vishal Hui MD Active SAPHRIS 5 MG SUBL 1 tab po qd ASENAPINE MALEATE 50264547305 No Longer Active Vishal Hui MD Active ZALEPLON 10 MG CAPS 1 cap po every other night ZALEPLON 33105393878 No Longer Active Vishal Hui MD Active LYRICA 50 MG CAPS 1 tab po TID PREGABALIN 89360987937 No Longer Active Vishal Hui MD Active LORATADINE 10 MG TABS 1 tab po qd LORATADINE 08635726380 No Longer Active Vishal Hui MD Active VERAPAMIL HCL ER 180 MG CR-TABS 1 tab po bid VERAPAMIL HCL 88257247723 No Longer Active Vishal Hui MD Active MIRALAX POWD 1 capfull once daily POLYETHYLENE GLYCOL 3350 30830779696 No Longer Active Vishal Hui MD Active PREDNISONE 20 MG TABS 1 tab po qd PREDNISONE 12065612353 No Longer Active Renzo Thornton DO Active LEVOFLOXACIN 500 MG TABS 1 tab po qd LEVOFLOXACIN 74547477698 No Longer Active Renzo Thornton DO Active BUSPIRONE HCL 15 MG TABS 1 tab po TID BUSPIRONE HCL 39202552592 No Longer Active Renzo Thornton DO Active BENZTROPINE MESYLATE 1 MG TABS 1 tab po qd BENZTROPINE MESYLATE 11294658184 No Longer Active Renzo Thornton DO Active ATENOLOL 25 MG TABS 1 tab po qd ATENOLOL 88458019501 No Longer Active Renzo Thornton DO Active ESCITALOPRAM OXALATE 20 MG TABS 1 tab po qd ESCITALOPRAM OXALATE 48732097414 No Longer Active Renzo Thornton DO Active ADVAIR DISKUS 250-50 MCG/DOSE AEPB 1 puff BID FLUTICASONE-SALMETEROL 27864111046 No Longer Active Renzo Thornton DO Active PREDNISONE 20 MG TAB 2 tabs daily for 3 days, 1 tab daily for 3 days, 1/2 tab daily for 2 days PREDNISONE 71372973055 No Longer Active Vishal Hui MD Active CEFDINIR 300 MG CAPS by mouth twice a day CEFDINIR 10017045237 No Longer Active Vishal Hui MD Active LANSOPRAZOLE 30 MG CPDR 1 cap po qd LANSOPRAZOLE 13051517437 No Longer Active Vishal Hui MD Active BACLOFEN 20 MG TABS 1 tab po tid BACLOFEN 36017171695 No Longer Active Vishal Hui MD Active ADVAIR DISKUS 250-50 MCG/DOSE AEPB 1 puff BID ADVAIR DISKUS 250-50 MCG/DOSE AEPB FLUTICASONE-SALMETEROL Inactive ESCITALOPRAM OXALATE 20 MG TABS 1 tab po qd ESCITALOPRAM OXALATE 20 MG TABS 729670 ESCITALOPRAM OXALATE Inactive ATENOLOL 25 MG TABS 1 tab po qd ATENOLOL 25 MG TABS 593781 ATENOLOL Inactive BENZTROPINE MESYLATE 1 MG TABS 1 tab po qd BENZTROPINE MESYLATE 1 MG TABS 753071 BENZTROPINE MESYLATE Inactive BUSPIRONE HCL 15 MG TABS 1 tab po TID BUSPIRONE HCL 15 MG TABS 600711 BUSPIRONE HCL Inactive LEVOFLOXACIN 500 MG TABS 1 tab po qd LEVOFLOXACIN 500 MG TABS 618012 LEVOFLOXACIN Inactive PREDNISONE 20 MG TABS 1 tab po qd PREDNISONE 20 MG TABS 571494 PREDNISONE Inactive MIRALAX POWD 1 capfull once daily MIRALAX POWD 133336 POLYETHYLENE GLYCOL 3350 Inactive VERAPAMIL HCL ER 180 MG CR-TABS 1 tab po bid VERAPAMIL HCL ER 180 MG CR-TABS VERAPAMIL HCL Inactive LORATADINE 10 MG TABS 1 tab po qd LORATADINE 10 MG TABS 821600 LORATADINE Inactive LYRICA 50 MG CAPS 1 tab po TID LYRICA 50 MG CAPS PREGABALIN Inactive ZALEPLON 10 MG CAPS 1 cap po every other night ZALEPLON 10 MG CAPS 894477 ZALEPLON Inactive SAPHRIS 5 MG SUBL 1 tab po qd SAPHRIS 5 MG SUBL ASENAPINE MALEATE Inactive TRAZODONE HCL 50 MG TABS 1/2 tab po qd prn for anxiety TRAZODONE HCL 50 MG TABS 934384 TRAZODONE HCL Inactive LATUDA 20 MG TABS Take one by mouth daily LATUDA 20 MG TABS LURASIDONE HCL Inactive LISINOPRIL 20 MG TABS 1 tab po qd LISINOPRIL 20 MG TABS 043229 LISINOPRIL Inactive SAPHRIS 10 MG SUBL 1 [...] twice daily BACTRIM DS 800-160 MG TAB 308242 TRIMETHOPRIM-SULFAMETHOXAZOLE Inactive MULTIVITAMINS CAPS Take one by mouth daily MULTIVITAMINS CAPS MULTIPLE VITAMIN Inactive MELATONIN 3 MG CAPS 2 po q hs MELATONIN 3 MG CAPS 925694 MELATONIN Inactive KEFLEX 500 MG ORAL CAPS 1 cap QID by mouth KEFLEX 500 MG ORAL CAPS 276232 CEPHALEXIN Inactive CLINDAMYCIN HCL 150 MG CAPS 1 four times a day CLINDAMYCIN HCL 150 MG CAPS 133660 CLINDAMYCIN HCL Inactive DIFLUCAN 150 MG TAB 1 tablet by mouth daily DIFLUCAN 150 MG TAB 814940 FLUCONAZOLE Inactive PROZAC 20 MG CAP Take one by mouth daily PROZAC 20 MG CAP 826053 FLUOXETINE HCL Inactive IBUPROFEN 600 MG TAB 1 po TID PRN IBUPROFEN 600 MG TAB 258699 IBUPROFEN Inactive VYVANSE 40 MG CAPS 1 daily, VYVANSE 40 MG CAPS LISDEXAMFETAMINE DIMESYLATE Inactive TRAZODONE HCL 100 MG TAB take 1 at bedtime TRAZODONE HCL 100 MG TAB 976817 TRAZODONE HCL Inactive AMITRIPTYLINE HCL 100 MG TAB one at hs AMITRIPTYLINE HCL 100 MG TAB 076468 AMITRIPTYLINE HCL Inactive AMLODIPINE BESYLATE 5 MG TABS 1 tablet by mouth daily AMLODIPINE BESYLATE 5 MG TABS 276416 AMLODIPINE BESYLATE Inactive LATUDA 80 MG TABS Take one by mouth daily LATUDA 80 MG TABS LURASIDONE HCL Inactive SAPHRIS 5 MG SUBL 1 po bid SAPHRIS 5 MG SUBL ASENAPINE MALEATE Inactive CEFDINIR 300 MG CAPS by mouth twice a day CEFDINIR 300 MG CAPS 589880 CEFDINIR Inactive PREDNISONE 20 MG TAB 2 tabs daily for 3 days, 1 tab daily for 3 days, 1/2 tab daily for 2 days PREDNISONE 20 MG TAB 049850 PREDNISONE Inactive BACTRIM DS 800-160 MG TABS 1 po BID x 7 days BACTRIM DS 800-160 MG TABS 19820521 SULFAMETHOXAZOLE-TRIMETHOPRIM Inactive DIFLUCAN 150 MG TABS 1 pill every other day x 2 doses DIFLUCAN 150 MG TABS 935634 FLUCONAZOLE Inactive BACTRIM DS 800-160 MG TABS [...] Panel - Chemistry sodium, serum 139 mmol/L 404-732 0337/12/03 carbon dioxide, venous blood 28.5 mmol/L 21.0-32.0 [...] 5.5 % 4.3-6.0 cholesterol, serum 159 mg/dL 356-002 6603/12/03 triglyceride, serum, fasting 118 mg/dL 30-200 HDL [...] % 11.6-14.8 platelet count 362 10^3/MM^3 10*3/mm3 179-050 6387/12/03 leukocyte count, blood 12.5 10^3/MM^3 10*3/mm3 4.6-10.2 neutrophils as percent of blood leukocytes 62.7 % 42.2-75.2 monocytes as percent of blood leukocytes 8.0 % 1.7-9.3 Lab Report: CBC, Comp. Metabolic Panel, Free Thyroxine (L), Thyroid Stim ... - Chemistry sodium, serum 140 mmol/L 829-447 1581/05/28 potassium, serum 4.2 mmol/L 3.5-5.2 chloride, serum [...] % 11.6-14.8 platelet count 348 10^3/MM^3 10*3/mm3 761-650 4790/05/28 erythrocyte (RBC) count 4.12 10^6/MM^3 10*6/mm3 4.04-5.48 hemoglobin, blood 12.9 g/dL 12.0-16.0 hematocrit, blood 38.5 % 36.0-46.0 mean corpuscular volume, RBC 93 fL 80-97 Lab Report: Comp. Metabolic Panel - Chemistry sodium, serum 139 mmol/L 510-452 6288/12/22 carbon dioxide, venous blood 26.8 mmol/L 21.0-32.0 potassium, serum 4.2 mmol/L 3.5-5.2 chloride, serum 103 mmol/L 98-107 blood glucose 115 mg/dL 65-110 urea nitrogen, blood 20 mg/dL 7-18 creatinine, serum 0.90 mg/dL 0.55-1.30 alanine aminotransferase (SGPT), serum 38 U/L 12-78 aspartate aminotransferase (SGOT), serum 19 U/L 15-37 calcium, serum 8.6 mg/dL 8.5-10.1 bilirubin, serum, total 0.30 mg/dL 0.00-1.00 sodium, serum 141 mmol/L 045-597 5166 potassium, serum 4.3 mmol/L 3.5-5.2 chloride, serum [...] Rate - Chemistry sodium, serum 139 mmol/L 308-274 5373/12/11 carbon dioxide, venous blood 25.4 mmol/L 21.0-32.0 [...] 5.5 5.0-8.5 Lab Report: UADIP W/MICRO, [place]O, [facility] [place] Chemistry RBC, urine, dipstick Negative Negative protein, total urine random Negative mg/dL Negative human chorionic gonadotropin, urine, qualitative (urine test) Negative Negative Lab Report: UADIP W/MICRO, AUTO, [facility] [place] - Urinalysis pH, urine, semiquantitative 7.0 5.0-8.5 specific gravity, urine 1.025 1.000-1.030 appearance, urine Clear Clear urine color Yellow Colorless;Lightyellow;Straw;Yellow urobilinogen, urine, semiquantitative (dipstick) 0.2 Normal leukocyte esterase, urine, by dipstick Negative Negative nitrite, urine, semiquantitative Negative Negative glucose, urine, semiquantitative Negative Negative ketones, urine, by test strip Negative Negative bilirubin, urine Negative Negative Lab Report: Varicella-Zoater Inga IgG,IgM/85760, HEP Be Antibody/556, RUB ... - Serology rubella antibody, serum, IgG 2.88 Encounters Code Encounter Date Provider Facility CPT-04626 Level 4 Est. Patient 09:00:51 DOCUMENTATION IMPROVEMENT SPECIALIST Vishal Hui MD [facility] CPT-83862 Level 3 Est. Patient 11:37:33 DOCUMENTATION IMPROVEMENT SPECIALIST Vishal Hui MD [facility] CPT-65242 Level 3 Est. Patient 08:41:09 DOCUMENTATION IMPROVEMENT SPECIALIST Vishal Hui MD [facility] CPT-24231 Level 4 Est. Patient 10:19:35 DOCUMENTATION IMPROVEMENT SPECIALIST Vishal Hui MD [facility] CPT-63312 Level 3 Est. Patient 13:35:45 CDT Vishal Hui MD [facility] CPT-81376 Level 4 Est. Patient 10:08:37 CDT Vishal Hui MD [facility] CPT-57995 Level 3 Est. Patient 11:22:10 CDT Vishal Hui MD [facility] CPT-51442 Level 3 Est. Patient 11:03:32 CDT Sahara Rodriguez MD [facility]-52985 Level 3 Est. Patient 09:41:35 CDT Vishal Hui MD [facility] CPT-27778 Level 3 Est. Patient 12:00:41 CDT Neeraj Collins MD [facility] CPT-11673 Level 3 Est. Patient 09:16:24 CDT Vishal Hui MD [facility] CPT-94075 Level 4 Est. Patient 13:59:09 CDT Neeraj Collins MD [facility] CPT-32213 Level 3 Est. Patient 15:19:43 CDT Renzo Thornton DO [facility] CPT-91943 Level 3 Est. Patient 18:10:26 CDT Sahara Rodriguez MD [facility] CPT-80818 Level 3 Est. Patient 14:49:50 CDT Vishal Hui MD [facility] CPT-33302 Level 4 Est. Patient 18:41:46 CDT Neeraj Collins MD [facility]-65197 Level 4 Est. Patient 09:18:38 DOCUMENTATION IMPROVEMENT SPECIALIST Vishal Hui MD [facility] CPT-03543 Level 3 Est. Patient 14:43:55 DOCUMENTATION IMPROVEMENT SPECIALIST Vishal Hui MD [facility] CPT-16582 Level 3 Est. Patient 15:26:33 DOCUMENTATION IMPROVEMENT SPECIALIST Sahara Rodriguez MD PhD [facility] CPT-38151 Level 3 Est. Patient 10:32:14 DOCUMENTATION IMPROVEMENT SPECIALIST Vishal Hui MD [facility] CPT-72587 Level 3 Est. Patient 15:12:52 DOCUMENTATION IMPROVEMENT SPECIALIST Vishal Hui MD [facility] CPT-50172 Level 4 Est. Patient 09:19:27 CDT Vishal Hui MD [facility] CPT-80128 Level 3 Est. Patient 15:53:00 CDT Renzo Thornton [facility] CPT-04467 Level 3 Est. Patient 15:50:30 CDT Renzo Thornton [facility] CPT-71633 Level 3 Est. Patient 16:55:24 CDT Vishal Hui MD [facility] Procedures Code Procedure Name Date Entry Date Standard Description CPT-80618 Recombivax HB Injection Suspension 5 MCG/0.5ML 08:37:50 DOCUMENTATION IMPROVEMENT SPECIALIST CPT-40651 Immunization Single Admin 08:37:50 DOCUMENTATION IMPROVEMENT SPECIALIST CPT-J3420 Vitamin B12 1000mcg (Cyanocobalamin) 08:32:16 DOCUMENTATION IMPROVEMENT SPECIALIST 03/11 CPT-05050 Abx/Therapy Injection 08:32:16 DOCUMENTATION IMPROVEMENT SPECIALIST CPT-04156 Chest 2V Frontal and Lat 11:46:38 DOCUMENTATION IMPROVEMENT SPECIALIST CPT-33428 Venipuncture Draw Fee 09:12:45 DOCUMENTATION IMPROVEMENT SPECIALIST CPT-J3420 Vitamin B12 1000mcg (Cyanocobalamin) 08:50:15 DOCUMENTATION IMPROVEMENT SPECIALIST 02/08 CPT-36402 Abx/Therapy Injection 08:50:15 DOCUMENTATION IMPROVEMENT SPECIALIST CPT-Cryo Cryotherapy 10:19:35 DOCUMENTATION IMPROVEMENT SPECIALIST CPT-000 Give Appropriate Flu Vaccine 09:22:16 CDT CPT-J3420 Vitamin B12 1000mcg (Cyanocobalamin) 19:08:57 CDT 01/11 CPT-99411 Abx/Therapy Injection 19:08:57 CDT CPT-J3420 Vitamin B12 1000mcg (Cyanocobalamin) 08:19:08 CDT 12/11 CPT-33667 Abx/Therapy Injection 08:19:08 CDT CPT-J3420 Vitamin B12 1000mcg (Cyanocobalamin) 14:48:00 CDT 11/09 CPT-44533 Abx/Therapy Injection 14:47:59 CDT CPT-J3420 Vitamin B12 1000mcg (Cyanocobalamin) 08:34:04 CDT 10/09 CPT-92775 Abx/Therapy Injection 08:34:04 CDT CPT-J3420 Vitamin B12 1000mcg (Cyanocobalamin) 09:18:52 CDT 09/11 CPT-59841 Abx/Therapy Injection 09:18:52 CDT CPT-J3420 Vitamin B12 1000mcg (Cyanocobalamin) 08:35:44 CDT 09/04 CPT-96228 Abx/Therapy Injection 08:35:44 CDT CPT-06984 Immunization Single Admin 11:07:16 CDT CPT-37080 Hepatitis B adult IM 11:07:16 CDT CPT-J3420 Vitamin B12 1000mcg (Cyanocobalamin) 11:00:49 CDT 08/28 CPT-J1040 Depo Medrol 80 mg (Methyl Prednisolone Acetate) 11:00: 49 CDT CPT-08162 Abx/Therapy Injection 11:00:49 CDT CPT-J1040 Depo Medrol 80 mg (Methyl Prednisolone Acetate) 09:16: 23 CDT CPT-J3420 Vitamin B12 1000mcg (Cyanocobalamin) 08:27:05 CDT 08/20 CPT-99056 Abx/Therapy Injection 08:27:05 CDT CPT-95351 Recombivax HB Injection Suspension 5 MCG/0.5ML 10:00:41 CDT CPT-61157 Administration single or combination vaccine inc oral 10 :00:41 CDT CPT-85400 Sono transvag pelvis non OB uterus ovaries cervix 16:36: 57 CDT CPT-42618 LS spine comp w obliq 09:50:55 DOCUMENTATION IMPROVEMENT SPECIALIST CPT-15604 Abd compl w upright 09:50:55 DOCUMENTATION IMPROVEMENT SPECIALIST CPT-J1100 Decadron 4mg (Dexamethasone) 15:51:24 DOCUMENTATION IMPROVEMENT SPECIALIST CPT-J1030 Depo Medrol 40 mg (Methyl Prednisolone Acetate) 15:51: 24 DOCUMENTATION IMPROVEMENT SPECIALIST CPT-74377 Abx/Therapy Injection 15:51:24 DOCUMENTATION IMPROVEMENT SPECIALIST CPT-J1100 Decadron 4mg (Dexamethasone) 15:26:33 DOCUMENTATION IMPROVEMENT SPECIALIST CPT-J1030 Depo Medrol 40 mg (Methyl Prednisolone Acetate) 15:26: 33 DOCUMENTATION IMPROVEMENT SPECIALIST CPT-26089 Sono retroperitoneal complete kidneys and bladder 17:15: 30 CDT CPT-63436 Abd compl w upright 16:09:25 CDT CPT-J1100 Decadron 8mg (Dexamethasone) 17:07:57 CDT CPT-99604 Abx/Therapy Injection 17:07:57 CDT CPT-J1100 Decadron 8mg (Dexamethasone) 16:55:24 CDT CPT-98392 Chest 2V Frontal and Lat 16:32:44 CDT
--- OUTSIDE RECORDS SUMMARY | 2016-11-05 01:44 | XMS REPORT | Clinical Summary ---
Author Author Admin, E Organization [facility] Address Unknown Phone Unavailable Allergies, Adverse Reactions, Alerts Allergy Name Reaction Description Start Date Severity Status Provider REQUIP Unsure of reaction, states that she was in severe pain Critical Active Ahmet Cabrajal MD AMITRIPTYLINE HCL Mood changes. LDA MA [...] facility Sinus tachycardia 427.89 Resolved Suzan Rajeev WALLPAPER SCRAPER Other specified cardiac dysrhythmias Schizoaffective disorder 295.70 [...] in limb Asthma, acute 493.92 Resolved Vishal uHi MD Asthma, unspecified with (acute) exacerbation Upper [...] Active Ahmet Carbajal MD Generalized anxiety disorder Lure Maker well woman exam V72.31 Active Suzan [...] MD Health screening ICD-V70.0 Inactive Suzan Boo WALLPAPER SCRAPER Sinus tachycardia ICD-427.89 Inactive Suzan Boo WALLPAPER SCRAPER Smoker/tobacco use disorder-smoking cessation discussed ICD-305.1 Inactive [...] MCG ORAL CAPS 1 tab BID LUBIPROSTONE 58241198713 Active Lynda Madl ROOFING MACHINE OPERATOR Active DIFLUCAN 150 MG TABS 1 by mouth for yeast FLUCONAZOLE 59236477115 Active Suzan Boo APRN Active LACTULOSE 10 GM/15ML ORAL SOLN 30mL oral BID for IBS-C LACTULOSE 57394360933 Active Suzan Boo APRN Active BACTRIM DS 800-160 MG TABS 1 twice a day SULFAMETHOXAZOLE- TRIMETHOPRIM 62278987981 Active Lyndaveda Xiao LPN Active MUPIROCIN 2 % OINT apply twice a day MUPIROCIN 50434549586 Active Suzan Boo APRN Active TESSALON PERLES 100 MG CAPS 1 three times a day as needed for cough BENZONATATE 31856514678 No Longer Active Suzan Boo APRN Active BACTRIM DS 800-160 MG TABS 1 twice a day SULFAMETHOXAZOLE-TRIMETHOPRIM 83824071265 No Longer Active Suzan Boo APRN Active DIFLUCAN 150 MG TABS 1 by mouth for yeast FLUCONAZOLE 19536895829 No Longer Active Suzan Boo APRN Active EQ NICOTINE 21 MG/24HR TRANS PT24 Apply daily to stop smoking NICOTINE 33060297298 No Longer Active Suzan Boo APRN Active PREDNISONE 10 MG TABS 2 daily for 5 days then 1 daily for 5 days PREDNISONE 28716693054 No Longer Active Suzan Boo APRN Active LEVAQUIN 500 MG TABS 1 daily for infection LEVOFLOXACIN 88937426654 No Longer Active Suzan Boo APRN Active TROPICAMIDE 0.5 % OPHTH SOLN 1 drop PRN eye spasms TROPICAMIDE 26721756427 No Longer Active Suzan Boo APRN Active PREDNISONE 20 MG TAB 1 tablet daily x 4 days PREDNISONE 56405682335 No Longer Active Suzan Boo APRN Active ACETAMINOPHEN-CODEINE 120-12 MG/5ML SOLN 5 ml by mouth every 4-6 hours if needed for cough ACETAMINOPHEN-CODEINE 05497994725 No Longer Active Suzan Boo APRN Active KEFLEX 500 MG CAP 1 po qid CEPHALEXIN 22306797638 No Longer Active Suzan Boo APRN Active FLOVENT HFA 110 MCG/ACT AERO 2 puffs inhaled b.i.d. FLUTICASONE PROPIONATE HFA 11983033710 Active Renzo Thornton DO Active RISPERDAL 4 MG ORAL TABS 1 tab at bedtime RISPERIDONE 53628055792 Active Samantha Stephan RMA Active ZOFRAN 4 MG TABS 1 po q6hr PRN Nausea ONDANSETRON HCL No Longer Active Suzan Boo APRN Active FLUTICASONE PROPIONATE 50 MCG/ACT SUSP 2 sprays each nostril daily before bed. FLUTICASONE PROPIONATE 79956467311 No Longer Active Suzan Boo APRN Active ASPIRIN 325 MG ORAL TABS 1 tab q.d ASPIRIN 41299853436 No Longer Active Suzan Boo APRN Active HALOPERIDOL 10 MG ORAL TABS 1 tab q.d HALOPERIDOL 74840347706 No Longer Active Suzan Boo APRN Active GUAIFENESIN-CODEINE 100-10 MG/5ML SYRP 5ml every 4 to 6 hours as needed for cough GUAIFENESIN-CODEINE 76600710210 No Longer Active Suzan Boo APRN Active ZITHROMAX Z-EARNEST 250 MG TABS 2 today and then 1 daily for 4 days AZITHROMYCIN 92191540236 No Longer Active Suzan Boo APRN Active CLONAZEPAM 1 MG ORAL TABS 1 twice a day and an additional 1 tablet every other day as needed for pseudoseizures or anxiety CLONAZEPAM 48045951577 Active Suzan Boo APRN Active HYDROCODONE-ACETAMINOPHEN 5-325 MG ORAL TABS 1 tab two times a day HYDROCODONE-ACETAMINOPHEN 47357803754 No Longer Active Ahmet Carbajal MD Active LAMICTAL 100 MG ORAL TABS 1 tab 2 times qd. LAMOTRIGINE 27943620677 Active Ahmet Carbajal MD Active PREDNISONE 20 MG TABS 2 daily for 5 days then 1 daily for 5 days PREDNISONE 93961513378 No Longer Active Ahmet Carbajal MD Active FLUTICASONE PROPIONATE 50 MCG/ACT SUSP 1 to 2 sprays each nostril daily for allergies FLUTICASONE PROPIONATE 70086887838 Active Tila Nicolas Active BENADRYL 25 MG CAP 4 po at bedtime for insomnia DIPHENHYDRAMINE HCL 91236254102 No Longer Active Ahmet Carbajal MD Active ADVAIR DISKUS 250-50 MCG/DOSE INH AEPB 1 puff twice a day for asthma FLUTICASONE-SALMETEROL 31862549250 No Longer Active Ahmet Carbajal MD Active KLONOPIN 1 MG ORAL TABS 1 tab po TID CLONAZEPAM 87671493424 No Longer Active Ahmet Carbajal MD Active ABILIFY MAINTENA 400 MG IM SUSR 400mg injection every 26 days ARIPIPRAZOLE 69541628561 No Longer Active Ahmet Carbajal MD Active TRAMADOL HCL 50 MG TABS 1/2-1 tab TID PRN TRAMADOL HCL 23352563746 No Longer Active Ahmet Carbajal MD Active BACTRIM DS 800-160 MG TABS 1 twice a day SULFAMETHOXAZOLE- TRIMETHOPRIM 16551744026 No Longer Active Ahmet Carbajal MD Active PROAIR HFA 108 (90 BASE) MCG/ACT AERS 2 puffs four times a day as needed 2015 ALBUTEROL SULFATE 14606930399 Active Honey Hinton WALLPAPER SCRAPER Active MONISTAT 7 COMBO PACK WOODROW 100 & 2 MG-% (9GM) VAG KIT 1 applicatorful per vagina q pm x 7 MICONAZOLE NITRATE 90346255531 No Longer Active Ahmet Carbajal MD Active FLAGYL 500 MG TAB 1 tablet by mouth bid METRONIDAZOLE 36914217381 No Longer Active Ahmet Carbajal MD Active OXYCODONE HCL ER 10 MG ORAL T12A 1/2 tab by mouth every 4 hours prn OXYCODONE HCL 63997744535 No Longer Active Ahmet Carbajal MD Active METHYLPREDNISOLONE 4 MG ORAL TABS po daily METHYLPREDNISOLONE 16716398667 No Longer Active Ahmet Carbajal MD Active LEVOFLOXACIN 500 MG ORAL TABS po daily LEVOFLOXACIN 26149060996 No Longer Active Ahmet Carbajal MD Active VIIBRYD 10 MG ORAL TABS Take 1 tablet once a day VILAZODONE HCL 51354560694 No Longer Active Ahmet Carbajal MD Active TOPAMAX 50 MG ORAL TABS 1 tab twice daily TOPIRAMATE 87650215072 No Longer Active Ahmet Carbajal MD Active DICLOFENAC SODIUM 50 MG TBEC 1 tablet by mouth four times daily PRN Pain 2015 DICLOFENAC SODIUM 53630272351 No Longer Active Ahmet Carbajal MD Active ADZENYS XR-ODT 6.3 MG ORAL TBED 1 tab po daily for ADHD AMPHETAMINE 79646861681 No Longer Active Ahmet Carbajal MD Active CHANTIX 1 MG TABS 1 twice a day to help quit smoking VARENICLINE TARTRATE 79074101554 No Longer Active Dipika Burgos MD Active CHANTIX STARTING MONTH EARNEST 0.5 MG X 11 & 1 MG X 42 TABS take as directed 2015 VARENICLINE TARTRATE 98217501793 No Longer Active Dipika Burgos MD Active TESSALON PERLES 100 MG CAP 1 to 2 tablets by mouth 3 times daily as needed for cough BENZONATATE 89807379386 No Longer Active Luigi Martínez APRN Active IMITREX 50 MG ORAL TABS 0.5 po x 1 PRN Headache. May repeat dose x 1 in 2 hours if needed SUMATRIPTAN SUCCINATE 62313765773 Active Ahmet Carbajal MD Active HYDROCODONE-ACETAMINOPHEN 5-325 MG TABS 1 to 2 four times a day as needed for pain use until can be seen by specialist HYDROCODONE- ACETAMINOPHEN 45920874323 No Longer Active Vishal Hui MD Active PROAIR HFA 108 (90 BASE) MCG/ACT AERS 2 puffs four times a day as needed 2015 ALBUTEROL SULFATE 52450397472 No Longer Active Vishal Hui MD Active PREDNISONE 20 MG TABS 2 daily for 5 days then 1 daily for 5 days PREDNISONE 25756150406 No Longer Active Vishal Hui MD Active ZITHROMAX Z-EARNEST 250 MG TABS 2 today and then 1 daily for 4 days AZITHROMYCIN 65257891711 No Longer Active Vishal Hui MD Active DICLOFENAC POTASSIUM TABS Take 1 tablet twice a day (pt. is not sure of the dose.) DICLOFENAC POTASSIUM TABS 53929029355 No Longer Active Vishal Hui MD Active VERAPAMIL HCL ER 120 MG ORAL CR-TABS Take 1 tablet by mouth twice a day. VERAPAMIL HCL 07508923920 Active Vishal Hui MD Active FLAGYL 500 MG TAB 1 tablet by mouth bid METRONIDAZOLE 12414606058 No Longer Active Vishal Hui MD Active VALIUM 5 MG TAB Take 1-2 tablets daily DIAZEPAM 30418837648 No Longer Active Fabiola Johnson APRN Active METOPROLOL TARTRATE 25 MG ORAL TABS 1/2 tablet twice daily for heart rate and blood pressure METOPROLOL TARTRATE 73437985100 No Longer Active Fabiola Johnson APRN Active MIRALAX ORAL POWD 17GMS DAILY IN WATER POLYETHYLENE GLYCOL 3350 68440083595 Active TAMARA Casey Active MIRALAX PACK 1 po qd PRN Constipation POLYETHYLENE GLYCOL 3350 06644672283 No Longer Active Ahmet Carbajal MD Active MINIPRESS 2 MG CAPS 4 cap po at night PRAZOSIN HCL 64666155684 No Longer Active Ahmet Carbajal MD Active PIROXICAM 20 MG CAPS 1 cap po qd PRN Pain PIROXICAM 92172466095 No Longer Active Ahmet Carbajal MD Active TRAMADOL HCL 50 MG TABS 1-2 po TID PRN Pain TRAMADOL HCL 07880757207 No Longer Active Ahmet Carbajal MD Active METOPROLOL TARTRATE 50 MG TAB 1 po bid METOPROLOL TARTRATE 75941124018 No Longer Active Ahmet Carbajal MD Active ABILIFY 15 MG ORAL TABS 1 tab daily ARIPIPRAZOLE 28574428124 No Longer Active Ahmet Carbajal MD Active PROZAC 20 MG ORAL CAPS 1 tab daily FLUOXETINE HCL 45400620259 No Longer Active Ahmet Carbajal MD Active AMBIEN 5 MG ORAL TABS 1 tab at bedtime ZOLPIDEM TARTRATE 58658392215 No Longer Active Ahmet Carbajal MD Active PREDNISONE 20 MG TAB 2 tabs daily for 4 days, 1 tab daily for 4 days, 1/2 tab daily for 4 days PREDNISONE 52150857452 No Longer Active Ahmet Carbajal MD Active KEFLEX 500 MG CAP 1 po TID x 10 days CEPHALEXIN 30428533778 No Longer Active Vishal Hui MD Active SAPHRIS 5 MG SUBL 1 po bid ASENAPINE MALEATE 54906031931 No Longer Active Jillina Frazell WALLPAPER SCRAPER Active LATUDA 80 MG TABS Take one by mouth daily LURASIDONE HCL 42847683784 No Longer Active Jillina Frazell WALLPAPER SCRAPER Active AMLODIPINE BESYLATE 5 MG TABS 1 tablet by mouth daily AMLODIPINE BESYLATE 83433924511 No Longer Active Jillina Frazell WALLPAPER SCRAPER Active AMITRIPTYLINE HCL 100 MG TAB one at hs AMITRIPTYLINE HCL 18888978241 No Longer Active Vishal Hui MD Active TRAZODONE HCL 100 MG TAB take 1 at bedtime TRAZODONE HCL 24719583639 No Longer Active Vishal Hui MD Active VYVANSE 40 MG CAPS 1 daily, LISDEXAMFETAMINE DIMESYLATE 69039916073 No Longer Active Vishal Hui MD Active IBUPROFEN 600 MG TAB 1 po TID PRN IBUPROFEN 17523722878 No Longer Active Vishal Hui MD Active PROZAC 20 MG CAP Take one by mouth daily FLUOXETINE HCL 90259174858 No Longer Active Vishal Hui MD Active BACTRIM DS 800-160 MG TABS 1 pill by mouth twice daily SULFAMETHOXAZOLE-TRIMETHOPRIM 96345163274 No Longer Active Sahara Rodriguez MD PhD Active DIFLUCAN 150 MG TAB 1 tablet by mouth daily FLUCONAZOLE 33191877567 No Longer Active Vishal Hui MD Active TIZANIDINE HCL 4 MG TABS 1 po q6hr PRN Muscle Spasm/Back Pain TIZANIDINE HCL 59527763688 Active TAMARA Casey Active CLINDAMYCIN HCL 150 MG CAPS 1 four times a day CLINDAMYCIN HCL 14135488950 No Longer Active Neeraj Collins MD Active KEFLEX 500 MG ORAL CAPS 1 cap QID by mouth CEPHALEXIN 40239073400 No Longer Active Neeraj Collins MD Active DIFLUCAN 150 MG TABS 1 pill every other day x 2 doses FLUCONAZOLE 43751877071 No Longer Active Sahara Rodriguez MD PhD Active MELATONIN 3 MG CAPS 2 po q hs MELATONIN 33758714304 No Longer Active Sahara Rodriguez MD PhD Active MULTIVITAMINS CAPS Take one by mouth daily MULTIPLE VITAMIN 42651551107 No Longer Active Sahara Rodriguez MD PhD Active BACTRIM DS 800-160 MG TAB 1 tab by mouth twice daily TRIMETHOPRIM-SULFAMETHOXAZOLE 10350895376 No Longer Active Sahara Rodriguez MD PhD Active [facility] PROBIOTIC ORAL CHEW 2 daily po PROBIOTIC PRODUCT 89144355874 No Longer Active Sahara Rodriguez MD PhD Active BACTRIM DS 800-160 MG TABS 1 po BID x 7 days SULFAMETHOXAZOLE-TRIMETHOPRIM 12349936647 No Longer Active Vishal Hui MD Active CHANTIX STARTING MONTH EARNEST 0.5 MG X 11 & 1 MG X 42 TABS 0.5mg daily for 3 days , then 0.5mg BID for 4 days, then 1mg BID VARENICLINE TARTRATE 80818874815 No Longer Active TAMARA Gray Active VERAPAMIL HCL CR 120 MG TAB CR 1 po bid VERAPAMIL HCL 73342488973 No Longer Active Vishal Hui MD Active METOPROLOL SUCCINATE 50 MG TB24 1 tablet by mouth daily METOPROLOL SUCCINATE 10553429666 No Longer Active Vishal Hui MD Active SAPHRIS 10 MG SUBL 1 tab po bid ASENAPINE MALEATE 75013623619 No Longer Active Vishal Hui MD Active LISINOPRIL 20 MG TABS 1 tab po qd LISINOPRIL 97561314590 No Longer Active Vishal Hui MD Active LATUDA 20 MG TABS Take one by mouth daily LURASIDONE HCL 13096250789 No Longer Active Vishal Hui MD Active TRAZODONE HCL 50 MG TABS 1/2 tab po qd prn for anxiety TRAZODONE HCL 66009678114 No Longer Active Vishal Hui MD Active OMEPRAZOLE 20 MG TBEC 1 po q a.m. 30min prior to first food intake OMEPRAZOLE 42149075583 Active TAMARA Casey Active RANITIDINE HCL 150 MG CAPS 1 twice a day RANITIDINE HCL 03678897499 Active Lynda Xiao LPN Active LINZESS 290 MCG CAPS Take one by mouth daily LINACLOTIDE 54443887544 No Longer Active Vishal Hui MD Active SAPHRIS 5 MG SUBL 1 tab po qd ASENAPINE MALEATE 41192292803 No Longer Active Vishal Hui MD Active ZALEPLON 10 MG CAPS 1 cap po every other night ZALEPLON 46925100720 No Longer Active Vishal Hui MD Active LYRICA 50 MG CAPS 1 tab po TID PREGABALIN 35725631849 No Longer Active Vishal Hui MD Active LORATADINE 10 MG TABS 1 tab po qd LORATADINE 73267299290 No Longer Active Vishal Hui MD Active VERAPAMIL HCL ER 180 MG CR-TABS 1 tab po bid VERAPAMIL HCL 86169014591 No Longer Active Vishal Hui MD Active MIRALAX POWD 1 capfull once daily POLYETHYLENE GLYCOL 3350 60480585823 No Longer Active Vishal Hui MD Active PREDNISONE 20 MG TABS 1 tab po qd PREDNISONE 32801687086 No Longer Active Renzo Thornton DO Active LEVOFLOXACIN 500 MG TABS 1 tab po qd LEVOFLOXACIN 55203168136 No Longer Active Renzo Thornton DO Active BUSPIRONE HCL 15 MG TABS 1 tab po TID BUSPIRONE HCL 67653560241 No Longer Active Renzo Thornton DO Active BENZTROPINE MESYLATE 1 MG TABS 1 tab po qd BENZTROPINE MESYLATE 13862057718 No Longer Active Renzo Thornton DO Active ATENOLOL 25 MG TABS 1 tab po qd ATENOLOL 50054616961 No Longer Active Renzo Thornton DO Active ESCITALOPRAM OXALATE 20 MG TABS 1 tab po qd ESCITALOPRAM OXALATE 49317028370 No Longer Active Renzo Thornton DO Active ADVAIR DISKUS 250-50 MCG/DOSE AEPB 1 puff BID FLUTICASONE-SALMETEROL 45808956610 No Longer Active Renzo Thornton DO Active PREDNISONE 20 MG TAB 2 tabs daily for 3 days, 1 tab daily for 3 days, 1/2 tab daily for 2 days PREDNISONE 02517113767 No Longer Active Vishal Hui MD Active CEFDINIR 300 MG CAPS by mouth twice a day CEFDINIR 74469214560 No Longer Active Vishal Hui MD Active LANSOPRAZOLE 30 MG CPDR 1 cap po qd LANSOPRAZOLE 83035664166 No Longer Active Vishal Hui MD Active BACLOFEN 20 MG TABS 1 tab po tid BACLOFEN 23881699754 No Longer Active Vishal Hui MD Active ADVAIR DISKUS 250-50 MCG/DOSE AEPB 1 puff BID ADVAIR DISKUS 250-50 MCG/DOSE AEPB FLUTICASONE-SALMETEROL Inactive ESCITALOPRAM OXALATE 20 MG TABS 1 tab po qd ESCITALOPRAM OXALATE 20 MG TABS 643920 ESCITALOPRAM OXALATE Inactive ATENOLOL 25 MG TABS 1 tab po qd ATENOLOL 25 MG TABS 642098 ATENOLOL Inactive BENZTROPINE MESYLATE 1 MG TABS 1 tab po qd BENZTROPINE MESYLATE 1 MG TABS 859203 BENZTROPINE MESYLATE Inactive BUSPIRONE HCL 15 MG TABS 1 tab po TID BUSPIRONE HCL 15 MG TABS 581734 BUSPIRONE HCL Inactive LEVOFLOXACIN 500 MG TABS 1 tab po qd LEVOFLOXACIN 500 MG TABS 400531 LEVOFLOXACIN Inactive PREDNISONE 20 MG TABS 1 tab po qd PREDNISONE 20 MG TABS 836995 PREDNISONE Inactive MIRALAX POWD 1 capfull once daily MIRALAX POWD 703522 POLYETHYLENE GLYCOL 3350 Inactive VERAPAMIL HCL ER 180 MG CR-TABS 1 tab po bid VERAPAMIL HCL ER 180 MG CR-TABS VERAPAMIL HCL Inactive LORATADINE 10 MG TABS 1 tab po qd LORATADINE 10 MG TABS 231919 LORATADINE Inactive LYRICA 50 MG CAPS 1 tab po TID LYRICA 50 MG CAPS PREGABALIN Inactive ZALEPLON 10 MG CAPS 1 cap po every other night ZALEPLON 10 MG CAPS 992017 ZALEPLON Inactive SAPHRIS 5 MG SUBL 1 tab po qd SAPHRIS 5 MG SUBL ASENAPINE MALEATE Inactive TRAZODONE HCL 50 MG TABS 1/2 tab po qd prn for anxiety TRAZODONE HCL 50 MG TABS 602801 TRAZODONE HCL Inactive LATUDA 20 MG TABS Take one by mouth daily LATUDA 20 MG TABS LURASIDONE HCL Inactive LISINOPRIL 20 MG TABS 1 tab po qd LISINOPRIL 20 MG TABS 543450 LISINOPRIL Inactive SAPHRIS 10 MG SUBL 1 [...] twice daily BACTRIM DS 800-160 MG TAB 375328 TRIMETHOPRIM-SULFAMETHOXAZOLE Inactive MULTIVITAMINS CAPS Take one by mouth daily MULTIVITAMINS CAPS MULTIPLE VITAMIN Inactive MELATONIN 3 MG CAPS 2 po q hs MELATONIN 3 MG CAPS 19950526 MELATONIN Inactive KEFLEX 500 MG ORAL CAPS 1 cap QID by mouth KEFLEX 500 MG ORAL CAPS 855649 CEPHALEXIN Inactive CLINDAMYCIN HCL 150 MG CAPS 1 four times a day CLINDAMYCIN HCL 150 MG CAPS 19740326 CLINDAMYCIN HCL Inactive DIFLUCAN 150 MG TAB 1 tablet by mouth daily DIFLUCAN 150 MG TAB 19751126 FLUCONAZOLE Inactive PROZAC 20 MG CAP Take one by mouth daily PROZAC 20 MG CAP 143469 FLUOXETINE HCL Inactive IBUPROFEN 600 MG TAB 1 po TID PRN IBUPROFEN 600 MG TAB 657950 IBUPROFEN Inactive VYVANSE 40 MG CAPS 1 daily, VYVANSE 40 MG CAPS LISDEXAMFETAMINE DIMESYLATE Inactive TRAZODONE HCL 100 MG TAB take 1 at bedtime TRAZODONE HCL 100 MG TAB 832531 TRAZODONE HCL Inactive AMITRIPTYLINE HCL 100 MG TAB one at hs AMITRIPTYLINE HCL 100 MG TAB 253483 AMITRIPTYLINE HCL Inactive AMLODIPINE BESYLATE 5 MG TABS 1 tablet by mouth daily AMLODIPINE BESYLATE 5 MG TABS 962554 AMLODIPINE BESYLATE Inactive LATUDA 80 MG TABS Take one by mouth daily LATUDA 80 MG TABS LURASIDONE HCL Inactive SAPHRIS 5 MG SUBL 1 po bid SAPHRIS 5 MG SUBL ASENAPINE MALEATE Inactive PREDNISONE 20 MG TAB 2 tabs daily for 4 days, 1 tab daily for 4 days, 1/2 tab daily for 4 days PREDNISONE 20 MG TAB 287624 PREDNISONE Inactive AMBIEN 5 MG ORAL TABS 1 tab at bedtime AMBIEN 5 MG ORAL TABS 693853 ZOLPIDEM TARTRATE Inactive PROZAC 20 MG ORAL CAPS 1 tab daily PROZAC 20 MG ORAL CAPS 955158 FLUOXETINE HCL Inactive ABILIFY 15 MG ORAL TABS 1 tab daily ABILIFY 15 MG ORAL TABS 165566 ARIPIPRAZOLE Inactive METOPROLOL TARTRATE 50 MG TAB 1 po bid METOPROLOL TARTRATE 50 MG TAB 728559 METOPROLOL TARTRATE Inactive TRAMADOL HCL 50 MG TABS 1-2 po TID PRN Pain TRAMADOL HCL 50 MG TABS 307340 TRAMADOL HCL Inactive PIROXICAM 20 MG CAPS 1 cap po qd PRN Pain PIROXICAM 20 MG CAPS 494048 PIROXICAM Inactive MINIPRESS 2 MG CAPS 4 cap po at night MINIPRESS 2 MG CAPS 855676 PRAZOSIN HCL Inactive MIRALAX PACK 1 po qd PRN Constipation MIRALAX PACK 763096 POLYETHYLENE GLYCOL 3350 Inactive METOPROLOL TARTRATE 25 MG ORAL TABS 1/2 tablet twice daily for heart rate and blood pressure METOPROLOL TARTRATE 25 MG ORAL TABS 126540 METOPROLOL TARTRATE Inactive VALIUM 5 MG TAB Take 1-2 tablets daily VALIUM 5 MG TAB 970709 DIAZEPAM Inactive FLAGYL 500 MG TAB 1 tablet by mouth bid FLAGYL 500 MG TAB 174383 METRONIDAZOLE Inactive DICLOFENAC POTASSIUM TABS Take 1 tablet twice a day (pt. is not sure of the dose.) DICLOFENAC POTASSIUM TABS DICLOFENAC POTASSIUM TABS Inactive ZITHROMAX Z-EARNEST 250 MG TABS 2 today and then 1 daily for 4 days ZITHROMAX Z-EARNEST 250 MG TABS 7937364 AZITHROMYCIN Inactive PREDNISONE 20 MG TABS 2 daily for 5 days then 1 daily for 5 days PREDNISONE 20 MG TABS 366148 PREDNISONE Inactive PROAIR HFA 108 (90 BASE) MCG/ACT AERS 2 puffs four times a day as needed 2015 PROAIR HFA 108 (90 BASE) MCG/ACT AERS ALBUTEROL SULFATE Inactive HYDROCODONE-ACETAMINOPHEN 5-325 MG TABS 1 to 2 four times a day as needed for pain use until can be seen by specialist HYDROCODONE- ACETAMINOPHEN 5-325 MG TABS 711887 HYDROCODONE-ACETAMINOPHEN Inactive TESSALON PERLES 100 MG CAP 1 to 2 tablets by mouth 3 times daily as needed for cough TESSALON PERLES 100 MG CAP 455729 BENZONATATE Inactive CHANTIX STARTING MONTH EARNEST 0.5 [...] Pain 2015 DICLOFENAC SODIUM 50 MG TBEC 700532 DICLOFENAC SODIUM Inactive TOPAMAX 50 MG ORAL TABS 1 tab twice daily TOPAMAX 50 MG ORAL TABS 214371 TOPIRAMATE Inactive VIIBRYD 10 MG ORAL TABS Take 1 tablet once a day VIIBRYD 10 MG ORAL TABS VILAZODONE HCL Inactive LEVOFLOXACIN 500 MG ORAL TABS po daily LEVOFLOXACIN 500 MG ORAL TABS 087184 LEVOFLOXACIN Inactive METHYLPREDNISOLONE 4 MG ORAL TABS po daily METHYLPREDNISOLONE 4 MG ORAL TABS 957643 METHYLPREDNISOLONE Inactive OXYCODONE HCL ER 10 MG ORAL T12A 1/2 tab by mouth every 4 hours prn OXYCODONE HCL ER 10 MG ORAL T12A OXYCODONE HCL Inactive FLAGYL 500 MG TAB 1 tablet by mouth bid FLAGYL 500 MG TAB 636921 METRONIDAZOLE Inactive MONISTAT 7 COMBO PACK WOODROW 100 & 2 MG-% (9GM) VAG KIT 1 applicatorful per vagina q pm x 7 MONISTAT 7 COMBO PACK WOODROW 100 & 2 MG-% (9GM) VAG KIT MICONAZOLE NITRATE Inactive BACTRIM DS 800-160 MG TABS 1 twice a day BACTRIM DS 800-160 MG TABS 955349 SULFAMETHOXAZOLE-TRIMETHOPRIM Inactive TRAMADOL HCL 50 MG TABS 1/2-1 tab TID PRN TRAMADOL HCL 50 MG TABS 048801 TRAMADOL HCL Inactive ABILIFY MAINTENA 400 MG IM SUSR 400mg injection every 26 days ABILIFY MAINTENA 400 MG IM SUSR ARIPIPRAZOLE Inactive KLONOPIN 1 MG ORAL TABS 1 tab po TID KLONOPIN 1 MG ORAL TABS 186147 CLONAZEPAM Inactive ADVAIR DISKUS 250-50 MCG/DOSE INH AEPB 1 puff twice a day for asthma ADVAIR DISKUS 250-50 MCG/DOSE INH AEPB FLUTICASONE- SALMETEROL Inactive BENADRYL 25 MG CAP 4 po at bedtime for insomnia BENADRYL 25 MG CAP DIPHENHYDRAMINE HCL Inactive PREDNISONE 20 MG TABS 2 daily for 5 days then 1 daily for 5 days PREDNISONE 20 MG TABS 673345 PREDNISONE Inactive HYDROCODONE-ACETAMINOPHEN 5-325 MG ORAL TABS 1 tab two times a day HYDROCODONE-ACETAMINOPHEN 5-325 MG ORAL TABS 372152 HYDROCODONE-ACETAMINOPHEN Inactive ZITHROMAX Z-EARNEST 250 MG TABS 2 today and then 1 daily for 4 days ZITHROMAX Z-EARNEST 250 MG TABS 7103970 AZITHROMYCIN Inactive GUAIFENESIN-CODEINE 100-10 MG/5ML SYRP 5ml every 4 to 6 hours as needed for cough GUAIFENESIN-CODEINE 100-10 MG/5ML SYRP 704642 GUAIFENESIN-CODEINE Inactive HALOPERIDOL 10 MG ORAL TABS 1 tab q.d HALOPERIDOL 10 MG ORAL TABS 013115 HALOPERIDOL Inactive ASPIRIN 325 MG ORAL TABS 1 tab q.d ASPIRIN 325 MG ORAL TABS 848381 ASPIRIN Inactive FLUTICASONE PROPIONATE 50 MCG/ACT SUSP 2 sprays each nostril daily before bed. FLUTICASONE PROPIONATE 50 MCG/ACT SUSP 1078390 FLUTICASONE PROPIONATE Inactive ZOFRAN 4 MG TABS 1 po q6hr PRN Nausea ZOFRAN 4 MG TABS 125366 ONDANSETRON HCL Inactive KEFLEX 500 MG CAP 1 po qid KEFLEX 500 MG CAP 147471 CEPHALEXIN Inactive ACETAMINOPHEN-CODEINE 120-12 MG/5ML SOLN 5 ml by mouth every 4-6 hours if needed for cough ACETAMINOPHEN-CODEINE 120-12 MG/5ML SOLN 195236 ACETAMINOPHEN-CODEINE Inactive PREDNISONE 20 MG TAB 1 tablet daily x 4 days PREDNISONE 20 MG TAB 643926 PREDNISONE Inactive TROPICAMIDE 0.5 % OPHTH SOLN 1 drop PRN eye spasms TROPICAMIDE 0.5 % OPHTH SOLN 127053 TROPICAMIDE Inactive LEVAQUIN 500 MG TABS 1 daily for infection LEVAQUIN 500 MG TABS 120336 LEVOFLOXACIN Inactive PREDNISONE 10 MG TABS 2 daily for 5 days then 1 daily for 5 days PREDNISONE 10 MG TABS 034662 PREDNISONE Inactive EQ NICOTINE 21 MG/24HR TRANS [...] twice a day CEFDINIR 300 MG CAPS 485718 CEFDINIR Inactive PREDNISONE 20 MG TAB 2 tabs daily for 3 days, 1 tab daily for 3 days, 1/2 tab daily for 2 days PREDNISONE 20 MG TAB 109474 PREDNISONE Inactive BACTRIM DS 800-160 MG TABS 1 po BID x 7 days BACTRIM DS 800-160 MG TABS 19820521 SULFAMETHOXAZOLE-TRIMETHOPRIM Inactive DIFLUCAN 150 MG TABS 1 pill every other day x 2 doses DIFLUCAN 150 MG TABS 278007 FLUCONAZOLE Inactive BACTRIM DS 800-160 MG TABS 1 pill by mouth twice daily BACTRIM DS 800-160 MG TABS [id number] SULFAMETHOXAZOLE-TRIMETHOPRIM Inactive KEFLEX 500 MG CAP 1 po TID x 10 days KEFLEX 500 MG CAP [id number] CEPHALEXIN Inactive Advance Directives Directive Description Start [...] % 11.0-15.0 platelet count 443 THOUSAND/UL 10*3/mm3 242-426 6368/03/01 mean platelet volume 8.2 fL 7.5-12.5 leukocyte [...] % 11.0-15.0 platelet count 349 THOUSAND/UL 10*3/mm3 468-621 9355/04/12 mean platelet volume 8.4 fL 7.5-12.5 Lab [...] 369 10^3/MM^3 10*3/mm3 142-424 Lab Report: Chlamydia/GC [id number] - Lab chlamydia DNA probe NOT DETECTED NOT DETECTED Lab Report: Chlamydia/GC [id number] - Microbiology Neisseria gonorrhoeae DNA probe NOT DETECTED NOT DETECTED Lab Report: Chlamydia/GC APTIMA/[id number], Urinalysis, Complete, with Reflex ... - Lab chlamydia DNA probe NOT DETECTED NOT DETECTED Lab Report: Chlamydia/GC APTIMA/15996, Urinalysis, Complete, with Reflex ... - Microbiology Neisseria gonorrhoeae DNA probe NOT DETECTED NOT DETECTED Lab Report: Chlamydia/GC APTIMA/09754, Urinalysis, Complete, with Reflex ... - Urinalysis microalbumin/total urine volume 2 mg/L Units converted. See lab report for original value. microalbumin/creatinine ratio, urine 9 MCG/MG CREAT mg/L <30 Lab Report: Comp. Metabolic Panel - Chemistry sodium, serum 140 mmol/L [phone]/08/08 carbon dioxide, venous blood 33.7 mmol/L 21.0-32.0 [...] mg/dL Encounters Code Encounter Date Provider Facility CPT-13207 Level 4 Est. Patient 10:49:34 CDT Suzan Boo [facility] CPT-01048 Level 3 Est. [facility] Patient 10:29:30 CDT Suzan Boo [facility]-32585 Level 3 Est. Patient 11:04:38 CDT Renzo Thornton [facility] CPT-72199 Level 3 Est. Patient 11:15:58 [employer] Renzo Thornton [facility] CPT-69119 Level 3 Est. Patient 15:28:23 [employer] Suzan Boo [facility] CPT-33016 Level 4 Est. Patient 10:20:54 [employer] Suzan Boo [facility] CPT-14706 Level 3 Est. Patient 11:47:37 [employer] Ahmet Carbajal MD [facility] CPT-48511 Level 3 Est. Patient 10:40:11 [employer] Ahmet Carbajal MD [facility] CPT-23093 Level 3 Est. Patient 15:07:06 [employer] Neeraj Collins MD [facility] CPT-32996 Level 4 Est. Patient 14:45:00 [employer] Ahmet Carbajal MD [facility] CPT-63003 Level 3 Est. Patient 13:59:59 CDT Luigi Martínez [facility]-92335 Level 3 Est. Patient 18:18:53 CDT Neeraj Collins MD [facility] CPT-24599 Level 3 Est. Patient 15:50:44 CDT Vishal Hui MD [facility] CPT-80372 Level 3 Est. Patient 11:36:17 CDT Ahmet Carbajal MD [facility] CPT-55425 Level 3 Est. Patient 13:29:16 CDT Vishal Hui MD [facility] CPT-75714 Level 3 Est. Patient 14:27:52 CDT Neeraj Collins MD [facility] CPT-33872 Level 3 Est. Patient 08:56:03 CDT Luigi Martínez [facility] CPT-83996 Level 4 Est. Patient 12:11:48 CDT Fabiola Johnson [facility] CPT-15213 Level 3 New Patient 16:53:37 CDT Albert Caldera MD [facility] CPT-21099 Level 3 Est. Patient 11:25:49 CDT Renzo Thornton DO [facility] CPT-10478 Level 3 Est. Patient 15:22:01 CDT Ahmet Carbajal MD [facility] CPT-83476 Level 4 Est. Patient 09:00:51 [employer] Vishal Hui MD [facility] CPT-59259 Level 3 Est. Patient 11:37:33 [employer] Vishal Hui MD [facility] CPT-52362 Level 3 Est. Patient 08:41:09 [employer] Vishal Hui MD [facility] CPT-37422 Level 4 Est. Patient 10:19:35 [employer] Vishal Hui MD [facility] CPT-71773 Level 3 Est. Patient 13:35:45 CDT Vishal Hui MD [facility] CPT-10843 Level 4 Est. Patient 10:08:37 CDT Vishal Hui MD [facility] CPT-00567 Level 3 Est. Patient 11:22:10 CDT Vishal Hui MD [facility] CPT-21582 Level 3 Est. Patient 11:03:32 CDT Sahara Rodriguez MD [facility]-69773 Level 3 Est. Patient 09:41:35 CDT Vishal Hui MD [facility] CPT-58744 Level 3 Est. Patient 12:00:41 CDT Neeraj Collins MD [facility] CPT-40491 Level 3 Est. Patient 09:16:24 CDT Vishal Hui MD [facility] CPT-24186 Level 4 Est. Patient 13:59:09 CDT Neeraj Collins MD [facility]-44486 Level 3 Est. Patient 15:19:43 CDT Renzo Thornton DO [facility] CPT-47392 Level 3 Est. Patient 18:10:26 CDT Sahara Rodriguez MD [facility] CPT-87395 Level 3 Est. Patient 14:49:50 CDT Vishal Hui MD [facility] CPT-31280 Level 4 Est. Patient 18:41:46 CDT Neeraj Collins MD [facility] CPT-66502 Level 4 Est. Patient 09:18:38 [employer] Vishal Hui MD [facility] CPT-13920 Level 3 Est. Patient 14:43:55 [employer] Vishal Hui MD [facility] CPT-23563 Level 3 Est. Patient 15:26:33 [employer] Sahara Rodriguez MD [facility] [place][note 2]-18749 Level 3 Est. Patient 10:32:14 [employer] Vishal Hui MD [facility] CPT-54569 Level 3 Est. Patient 15:12:52 [employer] Vishal Hui MD [facility] CPT-23559 Level 4 Est. Patient 09:19:27 CDT Vishal Hui MD [facility] CPT-94699 Level 3 Est. Patient 15:53:[address] [facility] CPT-20222 Level 3 Est. Patient 15:50:[address] [facility] CPT-12821 Level 3 Est. Patient 16:55:24 CDT Vishal Hui MD [facility] Procedures Code Procedure Name Date Entry Date Standard Description CPT-35351 Venipuncture Draw Fee 08:41:12 CDT CPT-00059 Abd compl w upright - XRAY USE ONLY 10:27:59 CDT 06/28 CPT-37793 Smoking Cessation counseling 11:15:58 [employer] CPT-G0439 [facility] Annual Wellness Exam 09:30:58 [employer] CPT-82246 TSH - LAB USE ONLY 08:50:26 [employer] CPT-78438 CBC - LAB USE ONLY 08:50:26 [employer] CPT-75362 Venipuncture Draw Fee 08:50:26 [employer] CPT-44858 Abx/Therapy Injection 17:34:30 [employer] CPT-80733 Nexplanon Removal with Reinsertion 14:09:32 CDT CPT-J7307 Nexplanon (Implant) 14:09:32 CDT CPT-OV Office Visit 14:09:32 CDT CPT-58461 UA w micro - LAB USE ONLY 16:21:13 CDT CPT-60056 Wet Mount - LAB USE ONLY 16:21:13 CDT CPT-05854 First Vx - Ix admin for Medicare patients 14:37:47 CDT CPT-44588 Fluzone Preservative Free Intramuscular Suspension 14:37 :47 CDT CPT-30475 Abx/Therapy Injection 13:54:22 CDT CPT-29768 Abx/Therapy Injection 08:47:09 CDT CPT-79600 Abx/Therapy Injection 13:29:56 CDT CPT-13429 Abx/Therapy Injection 08:36:16 CDT CPT-15635 Wet Mount - LAB USE ONLY 17:44:58 CDT CPT-02865 UA w micro - LAB USE ONLY 17:44:58 CDT CPT-62541 CMP - LAB USE ONLY 17:44:58 CDT CPT-94615 Venipuncture Draw Fee 17:44:58 CDT CPT-19820 Cervical Min 4V - XRAY USE ONLY 09:01:40 CDT CPT-86839 Chest 2V Frontal and Lat - XRAY USE ONLY 11:06:31 CDT CPT-24987 EKG Trac and Interp - XRAY USE ONLY 11:31:43 CDT 08/26 CPT-J3420 Vitamin B12 1000mcg (Cyanocobalamin) 08:10:26 [employer] 04/12 CPT-35733 Abx/Therapy Injection 08:10:26 [employer] CPT-G0438 Initial Annual Wellness Exam 19:01:01 [employer] CPT-J3420 Vitamin B12 1000mcg (Cyanocobalamin) 16:57:46 CDT 08/14 CPT-84380 Recombivax HB Injection Suspension 5 MCG/0.5ML 08:37:50 [employer] CPT-42579 Immunization Single Admin 08:37:50 [employer] CPT-J3420 Vitamin B12 1000mcg (Cyanocobalamin) 08:32:16 [employer] 03/11 CPT-26423 Abx/Therapy Injection 08:32:16 [employer] CPT-47624 Chest 2V Frontal and Lat 11:46:38 [employer] CPT-43572 Venipuncture Draw Fee 09:12:45 [employer] CPT-J3420 Vitamin B12 1000mcg (Cyanocobalamin) 08:50:15 [employer] 02/08 CPT-15542 Abx/Therapy Injection 08:50:15 [employer] CPT-Cryo Cryotherapy 10:19:35 [employer] CPT-000 Give Appropriate Flu Vaccine 09:22:16 CDT CPT-J3420 Vitamin B12 1000mcg (Cyanocobalamin) 19:08:57 CDT 01/11 CPT-04744 Abx/Therapy Injection 19:08:57 CDT CPT-J3420 Vitamin B12 1000mcg (Cyanocobalamin) 08:19:08 CDT 12/11 CPT-97122 Abx/Therapy Injection 08:19:08 CDT CPT-J3420 Vitamin B12 1000mcg (Cyanocobalamin) 14:48:00 CDT 11/09 CPT-95721 Abx/Therapy Injection 14:47:59 CDT CPT-J3420 Vitamin B12 1000mcg (Cyanocobalamin) 08:34:04 CDT 10/09 CPT-71994 Abx/Therapy Injection 08:34:04 CDT CPT-J3420 Vitamin B12 1000mcg (Cyanocobalamin) 09:18:52 CDT 09/11 CPT-95284 Abx/Therapy Injection 09:18:52 CDT CPT-J3420 Vitamin B12 1000mcg (Cyanocobalamin) 08:35:44 CDT 09/04 CPT-09056 Abx/Therapy Injection 08:35:44 CDT CPT-80869 Immunization Single Admin 11:07:16 CDT CPT-42666 Hepatitis B adult IM 11:07:16 CDT CPT-J3420 Vitamin B12 1000mcg (Cyanocobalamin) 11:00:49 CDT 08/28 CPT-J1040 Depo Medrol 80 mg (Methyl Prednisolone Acetate) 11:00: 49 CDT CPT-08311 Abx/Therapy Injection 11:00:49 CDT CPT-J1040 Depo Medrol 80 mg (Methyl Prednisolone Acetate) 09:16: 23 CDT CPT-J3420 Vitamin B12 1000mcg (Cyanocobalamin) 08:27:05 CDT 08/20 CPT-44728 Abx/Therapy Injection 08:27:05 CDT CPT-29417 Recombivax HB Injection Suspension 5 MCG/0.5ML 10:00:41 CDT CPT-91083 Administration single or combination vaccine inc oral 10 :00:41 CDT CPT-85980 Sono transvag pelvis non OB uterus ovaries cervix 16:36: 57 CDT CPT-47794 LS spine comp w obliq 09:50:55 [employer] CPT-31234 Abd compl w upright 09:50:55 [employer] CPT-J1100 Decadron 4mg (Dexamethasone) 15:51:24 [employer] CPT-J1030 Depo Medrol 40 mg (Methyl Prednisolone Acetate) 15:51: 24 [employer] CPT-09494 Abx/Therapy Injection 15:51:24 [employer] CPT-J1100 Decadron 4mg (Dexamethasone) 15:26:33 [employer] CPT-J1030 Depo Medrol 40 mg (Methyl Prednisolone Acetate) 15:26: 33 [employer] CPT-98093 Sono retroperitoneal complete kidneys and bladder 17:15: 30 CDT CPT-45236 Abd compl w upright 16:09:25 CDT CPT-J1100 Decadron 8mg (Dexamethasone) 17:07:57 CDT CPT-61318 Abx/Therapy Injection 17:07:57 CDT CPT-J1100 Decadron 8mg (Dexamethasone) 16:55:24 CDT CPT-89214 Chest 2V Frontal and Lat 16:32:44 CDT
--- OUTSIDE RECORDS SUMMARY | 2016-11-05 01:46 | XMS REPORT | Clinical Summary ---
Author Author Admin, QIE Organization [employer] Address Unknown Phone Unavailable Allergies, Adverse Reactions, [...] specified Headache, atypical 784.0 Active Luigi Martínez RETAIL ANALYTICS MANAGER Headache Elevated blood glucose 790.29 Active Demetrius [...] tab every 6 hours prn SUMATRIPTAN SUCCINATE 32857907370 Active Jillina Frazell RETAIL ANALYTICS MANAGER Active AMBIEN 5 MG ORAL TABS 1 tab at bedtime ZOLPIDEM TARTRATE 85259567761 Active Jillina Frazell RETAIL ANALYTICS MANAGER Active PROZAC 20 MG ORAL CAPS 1 tab daily FLUOXETINE HCL 21686805901 Active Jillina Frazell RETAIL ANALYTICS MANAGER Active ABILIFY 15 MG ORAL TABS 1 tab daily ARIPIPRAZOLE 68691162465 Active Jillina Frazell RETAIL ANALYTICS MANAGER Active MINIPRESS 2 MG CAPS 4 cap po at night PRAZOSIN HCL 37243453028 Active Jillina Frazell RETAIL ANALYTICS MANAGER Active TOPAMAX 50 MG ORAL TABS 1 tab twice daily TOPIRAMATE 37552017698 Active Jillina Frazell RETAIL ANALYTICS MANAGER Active SAPHRIS 5 MG SUBL 1 po bid ASENAPINE MALEATE 41673520499 No Longer Active Jillina Frazell RETAIL ANALYTICS MANAGER Active LATUDA 80 MG TABS Take one by mouth daily LURASIDONE HCL 24407941556 No Longer Active Jillina Frazell RETAIL ANALYTICS MANAGER Active AMLODIPINE BESYLATE 5 MG TABS 1 tablet by mouth daily AMLODIPINE BESYLATE 67177959041 No Longer Active Pacollina Johnl RETAIL ANALYTICS MANAGER Active AMITRIPTYLINE HCL 100 MG TAB one at hs AMITRIPTYLINE HCL 66867352943 No Longer Active Vishal Hui MD Active TRAZODONE HCL 100 MG TAB take 1 at bedtime TRAZODONE HCL 71153292772 No Longer Active Vishal Hui MD Active VYVANSE 40 MG CAPS 1 daily, LISDEXAMFETAMINE DIMESYLATE 72031819364 No Longer Active Vishal Hui MD Active IBUPROFEN 600 MG TAB 1 po TID PRN IBUPROFEN 81024376704 No Longer Active Vishal Hui MD Active MIRALAX PACK 1 po qd PRN Constipation POLYETHYLENE GLYCOL 3350 86272269044 Active Vishal Hui MD Active PROZAC 20 MG CAP Take one by mouth daily FLUOXETINE HCL 51727805117 No Longer Active Vishal Hui MD Active ZOFRAN 4 MG TABS 1 po q6hr PRN Nausea ONDANSETRON HCL Active Vishal Hui MD Active BACTRIM DS 800-160 MG TABS 1 pill by mouth twice daily SULFAMETHOXAZOLE-TRIMETHOPRIM 55165065085 No Longer Active Sahara Rodriguez MD PhD Active DIFLUCAN 150 MG TAB 1 tablet by mouth daily FLUCONAZOLE 94737435401 No Longer Active Vishal Hui MD Active TIZANIDINE HCL 4 MG TABS 1 po q6hr PRN Muscle Spasm/Back Pain TIZANIDINE HCL 69996754781 Active Vishal Hui MD Active CLINDAMYCIN HCL 150 MG CAPS 1 four times a day CLINDAMYCIN HCL 87284948433 No Longer Active Neeraj Collins MD Active KEFLEX 500 MG ORAL CAPS 1 cap QID by mouth CEPHALEXIN 12861781331 No Longer Active Neeraj Collins MD Active DIFLUCAN 150 MG TABS 1 pill every other day x 2 doses FLUCONAZOLE 06332794840 No Longer Active Sahara Rodriguez MD PhD Active MELATONIN 3 MG CAPS 2 po q hs MELATONIN 98347706493 No Longer Active Sahara Rodriguez MD PhD Active MULTIVITAMINS CAPS Take one by mouth daily MULTIPLE VITAMIN 37682846555 No Longer Active Sahara Rodriguez MD PhD Active BACTRIM DS 800-160 MG TAB 1 tab by mouth twice daily TRIMETHOPRIM-SULFAMETHOXAZOLE 49061670765 No Longer Active Sahara Rodriguez MD PhD Active [facility] PROBIOTIC ORAL CHEW 2 daily po PROBIOTIC PRODUCT 66626822223 No Longer Active Sahara Rodriguez MD PhD Active BACTRIM DS 800-160 MG TABS 1 po BID x 7 days SULFAMETHOXAZOLE-TRIMETHOPRIM 19992510119 No Longer Active Vishal Hui MD Active CHANTIX STARTING MONTH EARNEST 0.5 MG X 11 & 1 MG X 42 TABS 0.5mg daily for 3 days , then 0.5mg BID for 4 days, then 1mg BID VARENICLINE TARTRATE 33017329100 No Longer Active TAMARA Gray Active METOPROLOL TARTRATE 50 MG TAB 1 po bid METOPROLOL TARTRATE 63093557254 Active Vishal Hui MD Active VERAPAMIL HCL CR 120 MG TAB CR 1 po bid VERAPAMIL HCL 22490504814 No Longer Active Vishal Hui MD Active METOPROLOL SUCCINATE 50 MG TB24 1 tablet by mouth daily METOPROLOL SUCCINATE 61268324027 No Longer Active Vishal Hui MD Active TRAMADOL HCL 50 MG TABS 1-2 po TID PRN Pain TRAMADOL HCL 24231962359 Active Vsihal Hui MD Active SAPHRIS 10 MG SUBL 1 tab po bid ASENAPINE MALEATE 10455612935 No Longer Active Vishal Hui MD Active LISINOPRIL 20 MG TABS 1 tab po qd LISINOPRIL 53014386673 No Longer Active Vishal Hui MD Active BENADRYL 25 MG CAP 2 po tid prn anxiety DIPHENHYDRAMINE HCL 15850748138 Active Vishal Hui MD Active LATUDA 20 MG TABS Take one by mouth daily LURASIDONE HCL 74621587019 No Longer Active Vishal Hui MD Active TRAZODONE HCL 50 MG TABS 1/2 tab po qd prn for anxiety TRAZODONE HCL 98194455283 No Longer Active Vishal Hui MD Active PIROXICAM 20 MG CAPS 1 cap po qd PRN Pain PIROXICAM 84581345875 Active Vishal Hui MD Active OMEPRAZOLE 20 MG TBEC 1 po q a.m. 30min prior to first food intake OMEPRAZOLE 59635835864 Active Vishal Hui MD Active RANITIDINE HCL 150 MG CAPS 1 twice a day RANITIDINE HCL 30298308489 Active Vishal Hui MD Active LINZESS 290 MCG CAPS Take one by mouth daily LINACLOTIDE 51168615497 No Longer Active Vishal Hui MD Active SAPHRIS 5 MG SUBL 1 tab po qd ASENAPINE MALEATE 91003943909 No Longer Active Vishal Hui MD Active ZALEPLON 10 MG CAPS 1 cap po every other night ZALEPLON 58665557236 No Longer Active Vishal Hui MD Active LYRICA 50 MG CAPS 1 tab po TID PREGABALIN 97386582023 No Longer Active Vishal Hui MD Active LORATADINE 10 MG TABS 1 tab po qd LORATADINE 52087180553 No Longer Active Vishal Hui MD Active VERAPAMIL HCL ER 180 MG CR-TABS 1 tab po bid VERAPAMIL HCL 40525368243 No Longer Active Vishal Hui MD Active MIRALAX POWD 1 capfull once daily POLYETHYLENE GLYCOL 3350 61259333608 No Longer Active Vishal Hui MD Active PREDNISONE 20 MG TABS 1 tab po qd PREDNISONE 03523272296 No Longer Active Renzo Thornton DO Active LEVOFLOXACIN 500 MG TABS 1 tab po qd LEVOFLOXACIN 29752287914 No Longer Active Renzo Thornton DO Active BUSPIRONE HCL 15 MG TABS 1 tab po TID BUSPIRONE HCL 12295069497 No Longer Active Renzo Thornton DO Active BENZTROPINE MESYLATE 1 MG TABS 1 tab po qd BENZTROPINE MESYLATE 63917727953 No Longer Active Renzo Thornton DO Active ATENOLOL 25 MG TABS 1 tab po qd ATENOLOL 68933429965 No Longer Active Renzo Thornton DO Active ESCITALOPRAM OXALATE 20 MG TABS 1 tab po qd ESCITALOPRAM OXALATE 92448769643 No Longer Active Renzo Thornton DO Active ADVAIR DISKUS 250-50 MCG/DOSE AEPB 1 puff BID FLUTICASONE-SALMETEROL 04097946462 No Longer Active Renzo Thornton DO Active PREDNISONE 20 MG TAB 2 tabs daily for 3 days, 1 tab daily for 3 days, 1/2 tab daily for 2 days PREDNISONE 29509199901 No Longer Active Vishal Hui MD Active CEFDINIR 300 MG CAPS by mouth twice a day CEFDINIR 80908069209 No Longer Active Vishal Hui MD Active LANSOPRAZOLE 30 MG CPDR 1 cap po qd LANSOPRAZOLE 08477400347 No Longer Active Vishal Hui MD Active BACLOFEN 20 MG TABS 1 tab po tid BACLOFEN 18652712276 No Longer Active Vishal Hui MD Active ADVAIR DISKUS 250-50 MCG/DOSE AEPB 1 puff BID ADVAIR DISKUS 250-50 MCG/DOSE AEPB FLUTICASONE-SALMETEROL Inactive ESCITALOPRAM OXALATE 20 MG TABS 1 tab po qd ESCITALOPRAM OXALATE 20 MG TABS 712190 ESCITALOPRAM OXALATE Inactive ATENOLOL 25 MG TABS 1 tab po qd ATENOLOL 25 MG TABS 239982 ATENOLOL Inactive BENZTROPINE MESYLATE 1 MG TABS 1 tab po qd BENZTROPINE MESYLATE 1 MG TABS 812126 BENZTROPINE MESYLATE Inactive BUSPIRONE HCL 15 MG TABS 1 tab po TID BUSPIRONE HCL 15 MG TABS 082614 BUSPIRONE HCL Inactive LEVOFLOXACIN 500 MG TABS 1 tab po qd LEVOFLOXACIN 500 MG TABS 167874 LEVOFLOXACIN Inactive PREDNISONE 20 MG TABS 1 tab po qd PREDNISONE 20 MG TABS 134089 PREDNISONE Inactive MIRALAX POWD 1 capfull once daily MIRALAX POWD 705121 POLYETHYLENE GLYCOL 3350 Inactive VERAPAMIL HCL ER 180 MG CR-TABS 1 tab po bid VERAPAMIL HCL ER 180 MG CR-TABS VERAPAMIL HCL Inactive LORATADINE 10 MG TABS 1 tab po qd LORATADINE 10 MG TABS 644501 LORATADINE Inactive LYRICA 50 MG CAPS 1 tab po TID LYRICA 50 MG CAPS PREGABALIN Inactive ZALEPLON 10 MG CAPS 1 cap po every other night ZALEPLON 10 MG CAPS 812460 ZALEPLON Inactive SAPHRIS 5 MG SUBL 1 tab po qd SAPHRIS 5 MG SUBL ASENAPINE MALEATE Inactive TRAZODONE HCL 50 MG TABS 1/2 tab po qd prn for anxiety TRAZODONE HCL 50 MG TABS 066669 TRAZODONE HCL Inactive LATUDA 20 MG TABS Take one by mouth daily LATUDA 20 MG TABS LURASIDONE HCL Inactive LISINOPRIL 20 MG TABS 1 tab po qd LISINOPRIL 20 MG TABS 325797 LISINOPRIL Inactive SAPHRIS 10 MG SUBL 1 [...] twice daily BACTRIM DS 800-160 MG TAB 101098 TRIMETHOPRIM-SULFAMETHOXAZOLE Inactive MULTIVITAMINS CAPS Take one by mouth daily MULTIVITAMINS CAPS MULTIPLE VITAMIN Inactive MELATONIN 3 MG CAPS 2 po q hs MELATONIN 3 MG CAPS 19950526 MELATONIN Inactive KEFLEX 500 MG ORAL CAPS 1 cap QID by mouth KEFLEX 500 MG ORAL CAPS 525645 CEPHALEXIN Inactive CLINDAMYCIN HCL 150 MG CAPS 1 four times a day CLINDAMYCIN HCL 150 MG CAPS 249156 CLINDAMYCIN HCL Inactive DIFLUCAN 150 MG TAB 1 tablet by mouth daily DIFLUCAN 150 MG TAB 161866 FLUCONAZOLE Inactive PROZAC 20 MG CAP Take one by mouth daily PROZAC 20 MG CAP 178624 FLUOXETINE HCL Inactive IBUPROFEN 600 MG TAB 1 po TID PRN IBUPROFEN 600 MG TAB 510505 IBUPROFEN Inactive VYVANSE 40 MG CAPS 1 daily, VYVANSE 40 MG CAPS LISDEXAMFETAMINE DIMESYLATE Inactive TRAZODONE HCL 100 MG TAB take 1 at bedtime TRAZODONE HCL 100 MG TAB 479590 TRAZODONE HCL Inactive AMITRIPTYLINE HCL 100 MG TAB one at hs AMITRIPTYLINE HCL 100 MG TAB 798026 AMITRIPTYLINE HCL Inactive AMLODIPINE BESYLATE 5 MG TABS 1 tablet by mouth daily AMLODIPINE BESYLATE 5 MG TABS 620576 AMLODIPINE BESYLATE Inactive LATUDA 80 MG TABS Take one by mouth daily LATUDA 80 MG TABS LURASIDONE HCL Inactive SAPHRIS 5 MG SUBL 1 po bid SAPHRIS 5 MG SUBL ASENAPINE MALEATE Inactive CEFDINIR 300 MG CAPS by mouth twice a day CEFDINIR 300 MG CAPS 053021 CEFDINIR Inactive PREDNISONE 20 MG TAB 2 tabs daily for 3 days, 1 tab daily for 3 days, 1/2 tab daily for 2 days PREDNISONE 20 MG TAB 273387 PREDNISONE Inactive BACTRIM DS 800-160 MG TABS 1 po BID x 7 days BACTRIM DS 800-160 MG TABS 390252 SULFAMETHOXAZOLE-TRIMETHOPRIM Inactive DIFLUCAN 150 MG TABS 1 pill every other day x 2 doses DIFLUCAN 150 MG TABS 483247 FLUCONAZOLE Inactive BACTRIM DS 800-160 MG TABS 1 pill by mouth twice daily BACTRIM DS 800-160 MG TABS 692520 SULFAMETHOXAZOLE-TRIMETHOPRIM Inactive Vital Signs Date Name Value [...] Panel - Chemistry sodium, serum 139 mmol/L 939-450 9172/12/03 carbon dioxide, venous blood 28.5 mmol/L 21.0-32.0 [...] 5.5 % 4.3-6.0 cholesterol, serum 159 mg/dL 460-836 4339/12/03 triglyceride, serum, fasting 118 mg/dL 30-200 HDL [...] ... - Chemistry sodium, serum 140 mmol/L 540-750 8628/05/28 potassium, serum 4.2 mmol/L 3.5-5.2 chloride, serum [...] Panel - Chemistry sodium, serum 141 mmol/L 192-670 5686 potassium, serum 4.3 mmol/L 3.5-5.2 chloride, serum 106 mmol/L 98-107 carbon dioxide, venous blood 25.7 mmol/L 21.0-32.0 blood glucose 119 mg/dL 65-110 urea nitrogen, blood 22 mg/dL 7-18 creatinine, serum 0.90 mg/dL 0.60-1.30 alanine aminotransferase (SGPT), serum 28 U/L 12-78 aspartate aminotransferase (SGOT), serum 13 U/L 15-37 calcium, serum 8.5 mg/dL 8.5-10.1 bilirubin, serum, total 0.20 mg/dL 0.00-1.00 sodium, serum 139 mmol/L 975-284 0922/12/22 carbon dioxide, venous blood 26.8 mmol/L 21.0-32.0 [...] Rate - Chemistry sodium, serum 139 mmol/L 764-111 7025/12/11 carbon dioxide, venous blood 25.4 mmol/L 21.0-32.0 [...] Panel - Chemistry sodium, serum 139 mmol/L 350-853 9536/12/31 potassium, serum 4.8 mmol/L 3.5-5.2 chloride, serum 106 mmol/L 98-107 carbon dioxide, venous blood 24.3 mmol/L 21.0-32.0 blood glucose 90 mg/dL 65-110 urea nitrogen, blood 16 mg/dL 7-18 creatinine, serum 1.00 mg/dL 0.60-1.30 alanine aminotransferase (SGPT), serum 41 U/L 12-78 aspartate aminotransferase (SGOT), serum 17 U/L 15-37 calcium, serum 8.6 mg/dL 8.5-10.1 bilirubin, serum, total 0.30 mg/dL 0.00-1.00 cholesterol, serum 108 mg/dL 246-185 6499/12/31 triglyceride, serum, fasting 120 mg/dL 30-200 HDL [...] Negative Negative Lab Report: UADIP W/MICRO, [facility] - Urinalysis glucose, urine, semiquantitative Negative Negative ketones, urine, by test strip Negative Negative bilirubin, urine Negative Negative urine color Yellow Colorless;Lightyellow;Straw;Yellow appearance, urine Clear Clear specific gravity, urine 1.025 1.000-1.030 pH, urine, semiquantitative 7.0 5.0-8.5 urobilinogen, urine, semiquantitative (dipstick) 0.2 Normal leukocyte esterase, urine, by dipstick Negative Negative nitrite, urine, semiquantitative Negative Negative Lab Report: Varicella-Zoater Inga IgG,IgM/16148, HEP Be Antibody/556, RUB ... - Serology rubella antibody, serum, IgG 2.88 Encounters Code Encounter Date Provider Facility CPT-65329 Level 3 Est. Patient 11:37:33 DIMPLING MACHINE OPERATOR Vishal Hui MD [facility] CPT-57950 Level 3 Est. Patient 08:41:09 DIMPLING MACHINE OPERATOR Vishal Hui MD [facility] CPT-19836 Level 4 Est. Patient 10:19:35 DIMPLING MACHINE OPERATOR Vishal Hui MD [facility] CPT-17438 Level 3 Est. Patient 13:35:45 CDT Vishal Hui MD [facility] CPT-89138 Level 4 Est. Patient 10:08:37 CDT Vishal Hui MD [facility] CPT-25480 Level 3 Est. Patient 11:22:10 CDT Vishal Hui MD [facility] CPT-48508 Level 3 Est. Patient 11:03:32 CDT Sahara Rodriguez MD [facility] CPT-13178 Level 3 Est. Patient 09:41:35 CDT Vishal Hui MD [facility]-11932 Level 3 Est. Patient 12:00:41 CDT Neeraj Collins MD [facility] CPT-00837 Level 3 Est. Patient 09:16:24 CDT Vishal Hui MD [facility] CPT-93654 Level 4 Est. Patient 13:59:09 CDT Neeraj Collins MD [facility] CPT-22133 Level 3 Est. Patient 15:19:43 CDT Renzo Thornton DO [facility] CPT-11928 Level 3 Est. Patient 18:10:26 CDT Sahara Rodriguez MD [facility]-03152 Level 3 Est. Patient 14:49:50 CDT Vishal Hui MD [facility] CPT-62834 Level 4 Est. Patient 18:41:46 CDT Neeraj Collins MD [facility]-76549 Level 4 Est. Patient 09:18:38 DIMPLING MACHINE OPERATOR Vishal Hui MD [facility] CPT-90674 Level 3 Est. Patient 14:43:55 DIMPLING MACHINE OPERATOR Vishal Hui MD [facility] CPT-54714 Level 3 Est. Patient 15:26:33 DIMPLING MACHINE OPERATOR Sahara Rodriguez MD PhD [facility] CPT-72062 Level 3 Est. Patient 10:32:14 DIMPLING MACHINE OPERATOR Vishal Hui MD [facility] CPT-49226 Level 3 Est. Patient 15:12:52 DIMPLING MACHINE OPERATOR Vishal Hui MD [facility] CPT-67082 Level 4 Est. Patient 09:19:27 CDT Vishal Hui MD [facility] CPT-40999 Level 3 Est. Patient 15:53:00 CDT Renzo Thornton [facility] CPT-70570 Level 3 Est. Patient 15:50:30 CDT Renzo Thornton [facility] CPT-65084 Level 3 Est. Patient 16:55:24 CDT Vishal Hui MD [facility] Procedures Code Procedure Name Date Entry Date Standard Description CPT-28959 Recombivax HB Injection Suspension 5 MCG/0.5ML 08:37:50 DIMPLING MACHINE OPERATOR CPT-26699 Immunization Single Admin 08:37:50 DIMPLING MACHINE OPERATOR CPT-J3420 Vitamin B12 1000mcg (Cyanocobalamin) 08:32:16 DIMPLING MACHINE OPERATOR 03/11 CPT-05558 Abx/Therapy Injection 08:32:16 DIMPLING MACHINE OPERATOR CPT-07879 Chest 2V Frontal and Lat 11:46:38 DIMPLING MACHINE OPERATOR CPT-11296 Venipuncture Draw Fee 09:12:45 DIMPLING MACHINE OPERATOR CPT-J3420 Vitamin B12 1000mcg (Cyanocobalamin) 08:50:15 DIMPLING MACHINE OPERATOR 02/08 CPT-60293 Abx/Therapy Injection 08:50:15 DIMPLING MACHINE OPERATOR CPT-Cryo Cryotherapy 10:19:35 DIMPLING MACHINE OPERATOR CPT-000 Give Appropriate Flu Vaccine 09:22:16 CDT CPT-J3420 Vitamin B12 1000mcg (Cyanocobalamin) 19:08:57 CDT 01/11 CPT-10983 Abx/Therapy Injection 19:08:57 CDT CPT-J3420 Vitamin B12 1000mcg (Cyanocobalamin) 08:19:08 CDT 12/11 CPT-21429 Abx/Therapy Injection 08:19:08 CDT CPT-J3420 Vitamin B12 1000mcg (Cyanocobalamin) 14:48:00 CDT 11/09 CPT-03366 Abx/Therapy Injection 14:47:59 CDT CPT-J3420 Vitamin B12 1000mcg (Cyanocobalamin) 08:34:04 CDT 10/09 CPT-25675 Abx/Therapy Injection 08:34:04 CDT CPT-J3420 Vitamin B12 1000mcg (Cyanocobalamin) 09:18:52 CDT 09/11 CPT-46913 Abx/Therapy Injection 09:18:52 CDT CPT-J3420 Vitamin B12 1000mcg (Cyanocobalamin) 08:35:44 CDT 09/04 CPT-96067 Abx/Therapy Injection 08:35:44 CDT CPT-55191 Immunization Single Admin 11:07:16 CDT CPT-33659 Hepatitis B adult IM 11:07:16 CDT CPT-J3420 Vitamin B12 1000mcg (Cyanocobalamin) 11:00:49 CDT 08/28 CPT-J1040 Depo Medrol 80 mg (Methyl Prednisolone Acetate) 11:00: 49 CDT CPT-41833 Abx/Therapy Injection 11:00:49 CDT CPT-J1040 Depo Medrol 80 mg (Methyl Prednisolone Acetate) 09:16: 23 CDT CPT-J3420 Vitamin B12 1000mcg (Cyanocobalamin) 08:27:05 CDT 08/20 CPT-53582 Abx/Therapy Injection 08:27:05 CDT CPT-86117 Recombivax HB Injection Suspension 5 MCG/0.5ML 10:00:41 CDT CPT-19223 Administration single or combination vaccine inc oral 10 :00:41 CDT CPT-74825 Sono transvag pelvis non OB uterus ovaries cervix 16:36: 57 CDT CPT-16441 LS spine comp w obliq 09:50:55 DIMPLING MACHINE OPERATOR CPT-28973 Abd compl w upright 09:50:55 DIMPLING MACHINE OPERATOR CPT-J1100 Decadron 4mg (Dexamethasone) 15:51:24 DIMPLING MACHINE OPERATOR CPT-J1030 Depo Medrol 40 mg (Methyl Prednisolone Acetate) 15:51: 24 DIMPLING MACHINE OPERATOR CPT-31266 Abx/Therapy Injection 15:51:24 DIMPLING MACHINE OPERATOR CPT-J1100 Decadron 4mg (Dexamethasone) 15:26:33 DIMPLING MACHINE OPERATOR CPT-J1030 Depo Medrol 40 mg (Methyl Prednisolone Acetate) 15:26: 33 DIMPLING MACHINE OPERATOR CPT-16163 Sono retroperitoneal complete kidneys and bladder 17:15: 30 CDT CPT-93188 Abd compl w upright 16:09:25 CDT CPT-J1100 Decadron 8mg (Dexamethasone) 17:07:57 CDT CPT-43045 Abx/Therapy Injection 17:07:57 CDT CPT-J1100 Decadron 8mg (Dexamethasone) 16:55:24 CDT CPT-12231 Chest 2V Frontal and Lat 16:32:44 CDT
--- OUTSIDE RECORDS SUMMARY | 2016-11-05 01:47 | XMS REPORT | Clinical Summary ---
Author Author Admin, E Organization [employer] Address Unknown Phone Unavailable Allergies, Adverse [...] every other day x 2 doses FLUCONAZOLE 83154219250 Active Sahara Rodriguez MD PhD Active MELATONIN 3 MG CAPS 2 po q hs MELATONIN 94767522239 No Longer Active Sahara Rodriguez MD PhD Active MULTIVITAMINS CAPS Take one by mouth daily MULTIPLE VITAMIN 74643022506 No Longer Active Sahara Rodriguez MD PhD Active BACTRIM DS 800-160 MG TAB 1 tab by mouth twice daily TRIMETHOPRIM-SULFAMETHOXAZOLE 18069344040 No Longer Active Sahara Rodriguez MD PhD Active [facility] PROBIOTIC ORAL CHEW 2 daily po PROBIOTIC PRODUCT 88322063109 No Longer Active Sahara Rodriguez MD PhD Active IBUPROFEN 600 MG TAB 1 po TID PRN IBUPROFEN 14925239505 Active Luigi Martínez PRODUCT PROMOTER SALES PERSON Active BACTRIM DS 800-160 MG TABS 1 po BID x 7 days SULFAMETHOXAZOLE-TRIMETHOPRIM 80639089460 No Longer Active Vishal Hui MD Active CHANTIX STARTING MONTH EARNEST 0.5 MG X 11 & 1 MG X 42 TABS 0.5mg daily for 3 days , then 0.5mg BID for 4 days, then 1mg BID VARENICLINE TARTRATE 16155367283 No Longer Active TAMARA Gray Active METOPROLOL TARTRATE 50 MG TAB 1 po bid METOPROLOL TARTRATE 55357168066 Active Vishal Hui MD Active TRAZODONE HCL 100 MG TAB take 1 at bedtime TRAZODONE HCL 35581099411 Active Vishal Hui MD Active AMLODIPINE BESYLATE 5 MG TABS 1 tablet by mouth daily AMLODIPINE BESYLATE 46690947157 Active Vishal Hui MD Active VERAPAMIL HCL CR 120 MG TAB CR 1 po bid VERAPAMIL HCL 83680214948 No Longer Active Vishal Hui MD Active METOPROLOL SUCCINATE 50 MG TB24 1 tablet by mouth daily METOPROLOL SUCCINATE 99945396049 No Longer Active Vishal Hui MD Active TRAMADOL HCL 50 MG TABS 1-2 po TID PRN Pain TRAMADOL HCL 03300527683 Active Vishal Hui MD Active SAPHRIS 5 MG SUBL 1 po bid ASENAPINE MALEATE 28448842240 Active Vishal Hui MD Active SAPHRIS 10 MG SUBL 1 tab po bid ASENAPINE MALEATE 74486185140 No Longer Active Vishal Hui MD Active LISINOPRIL 20 MG TABS 1 tab po qd LISINOPRIL 83804028469 No Longer Active Vsihal Hui MD Active BENADRYL 25 MG CAP 2 po tid prn anxiety DIPHENHYDRAMINE HCL 61882751642 Active Vishal Hui MD Active LATUDA 80 MG TABS Take one by mouth daily LURASIDONE HCL 13942300160 Active Vishal Hui MD Active LATUDA 20 MG TABS Take one by mouth daily LURASIDONE HCL 82767080271 No Longer Active Vishal Hui MD Active TRAZODONE HCL 50 MG TABS 1/2 tab po qd prn for anxiety TRAZODONE HCL 79749908222 No Longer Active Vishal Hui MD Active PIROXICAM 20 MG CAPS 1 cap po qd PRN Pain PIROXICAM 22866334681 Active Vishal Hui MD Active OMEPRAZOLE 20 MG TBEC 1 po q a.m. 30min prior to first food intake OMEPRAZOLE 68638103612 Active Vishal Hui MD Active RANITIDINE HCL 150 MG CAPS 1 twice a day RANITIDINE HCL 95703472492 Active Vishal Hui MD Active PROZAC 20 MG CAP Take one by mouth daily FLUOXETINE HCL 78155696443 Active Vishal Hui MD Active LINZESS 290 MCG CAPS Take one by mouth daily LINACLOTIDE 07525863256 Active Vishal Hiu MD Active SAPHRIS 5 MG SUBL 1 tab po qd ASENAPINE MALEATE 39669518062 No Longer Active Vishal Hui MD Active ZALEPLON 10 MG CAPS 1 cap po every other night ZALEPLON 74143935077 No Longer Active Vishal Hui MD Active LYRICA 50 MG CAPS 1 tab po TID PREGABALIN 96469196322 No Longer Active Vishal Hui MD Active LORATADINE 10 MG TABS 1 tab po qd LORATADINE 37803386293 No Longer Active Vishal Hui MD Active VERAPAMIL HCL ER 180 MG CR-TABS 1 tab po bid VERAPAMIL HCL 16452420029 No Longer Active Vishal Hui MD Active MIRALAX POWD 1 capfull once daily POLYETHYLENE GLYCOL 3350 19111772652 No Longer Active Vishal Hui MD Active PREDNISONE 20 MG TABS 1 tab po qd PREDNISONE 32081522192 No Longer Active Renzo Thornton DO Active LEVOFLOXACIN 500 MG TABS 1 tab po qd LEVOFLOXACIN 11352111374 No Longer Active Renzo Thornton DO Active BUSPIRONE HCL 15 MG TABS 1 tab po TID BUSPIRONE HCL 68658041297 No Longer Active Renzo Thornton DO Active BENZTROPINE MESYLATE 1 MG TABS 1 tab po qd BENZTROPINE MESYLATE 19834924486 No Longer Active Renzo Thornton DO Active ATENOLOL 25 MG TABS 1 tab po qd ATENOLOL 58318754235 No Longer Active Renzo Thornton DO Active ESCITALOPRAM OXALATE 20 MG TABS 1 tab po qd ESCITALOPRAM OXALATE 89349208612 No Longer Active Renzo Thornton DO Active ADVAIR DISKUS 250-50 MCG/DOSE AEPB 1 puff BID FLUTICASONE-SALMETEROL 96804835721 No Longer Active Renzo Thornton DO Active PREDNISONE 20 MG TAB 2 tabs daily for 3 days, 1 tab daily for 3 days, 1/2 tab daily for 2 days PREDNISONE 85232066875 No Longer Active Vishal Hui MD Active CEFDINIR 300 MG CAPS by mouth twice a day CEFDINIR 04771084277 No Longer Active Vishal Hui MD Active LANSOPRAZOLE 30 MG CPDR 1 cap po qd LANSOPRAZOLE 86324219562 No Longer Active Vishal Hui MD Active TOPAMAX 25 MG TABS 1 tab po bid TOPIRAMATE 71318170443 Active Vishal Hui MD Active MINIPRESS 2 MG CAPS 1 cap po at night PRAZOSIN HCL 98693510241 Active Vishal Hui MD Active BACLOFEN 20 MG TABS 1 tab po tid BACLOFEN 46388464232 Active Vishal Hui MD Active ADVAIR DISKUS 250-50 MCG/DOSE AEPB 1 puff BID ADVAIR DISKUS 250-50 MCG/DOSE AEPB FLUTICASONE-SALMETEROL Inactive ESCITALOPRAM OXALATE 20 MG TABS 1 tab po qd ESCITALOPRAM OXALATE 20 MG TABS 171171 ESCITALOPRAM OXALATE Inactive ATENOLOL 25 MG TABS 1 tab po qd ATENOLOL 25 MG TABS 184365 ATENOLOL Inactive BENZTROPINE MESYLATE 1 MG TABS 1 tab po qd BENZTROPINE MESYLATE 1 MG TABS 187059 BENZTROPINE MESYLATE Inactive BUSPIRONE HCL 15 MG TABS 1 tab po TID BUSPIRONE HCL 15 MG TABS 289390 BUSPIRONE HCL Inactive LEVOFLOXACIN 500 MG TABS 1 tab po qd LEVOFLOXACIN 500 MG TABS 553496 LEVOFLOXACIN Inactive PREDNISONE 20 MG TABS 1 tab po qd PREDNISONE 20 MG TABS 697901 PREDNISONE Inactive MIRALAX POWD 1 capfull once daily MIRALAX POWD 177555 POLYETHYLENE GLYCOL 3350 Inactive VERAPAMIL HCL ER 180 MG CR-TABS 1 tab po bid VERAPAMIL HCL ER 180 MG CR-TABS VERAPAMIL HCL Inactive LORATADINE 10 MG TABS 1 tab po qd LORATADINE 10 MG TABS 944970 LORATADINE Inactive LYRICA 50 MG CAPS 1 tab po TID LYRICA 50 MG CAPS PREGABALIN Inactive ZALEPLON 10 MG CAPS 1 cap po every other night ZALEPLON 10 MG CAPS 258510 ZALEPLON Inactive SAPHRIS 5 MG SUBL 1 tab po qd SAPHRIS 5 MG SUBL ASENAPINE MALEATE Inactive TRAZODONE HCL 50 MG TABS 1/2 tab po qd prn for anxiety TRAZODONE HCL 50 MG TABS 871147 TRAZODONE HCL Inactive LATUDA 20 MG TABS Take one by mouth daily LATUDA 20 MG TABS LURASIDONE HCL Inactive LISINOPRIL 20 MG TABS 1 tab po qd LISINOPRIL 20 MG TABS 366816 LISINOPRIL Inactive SAPHRIS 10 MG SUBL 1 [...] for 2 days PREDNISONE 20 MG TAB 102118 PREDNISONE Inactive BACTRIM DS 800-160 MG TABS [...] outside labs entered on flowsheet - Chemistry creatinine, serum 0.89 mg/dL aspartate aminotransferase (SGOT), serum 18 U/L alanine aminotransferase (SGPT), serum 38 U/L alkaline phosphatase, serum 119 U/L sodium, serum 139 mmol/L potassium, serum 4.0 mmol/L blood glucose 86 mg/dL Chart Maintenance: outside labs entered on flowsheet - Hematology hemoglobin, blood 13.2 g/dL platelet count 364 10*3/mm3 leukocyte count, blood 8.9 10*3/mm3 Lab Report: Comp. Metabolic Panel - Chemistry sodium, serum 141 mmol/L 215-870 2575 potassium, serum 4.3 mmol/L 3.5-5.2 chloride, serum [...] Panel - Chemistry sodium, serum 139 mmol/L 441-432 1653/12/31 potassium, serum 4.8 mmol/L 3.5-5.2 chloride, serum 106 mmol/L 98-107 carbon dioxide, venous blood 24.3 mmol/L 21.0-32.0 blood glucose 90 mg/dL 65-110 urea nitrogen, blood 16 mg/dL 7-18 creatinine, serum 1.00 mg/dL 0.60-1.30 alanine aminotransferase (SGPT), serum 41 U/L 12-78 aspartate aminotransferase (SGOT), serum 17 U/L 15-37 calcium, serum 8.6 mg/dL 8.5-10.1 bilirubin, serum, total 0.30 mg/dL 0.00-1.00 cholesterol, serum 108 mg/dL 610-443 9570/12/31 triglyceride, serum, fasting 120 mg/dL 30-200 HDL [...] semiquantitative Negative Negative Lab Report: Varicella-Zoater Inga IgG,IgM/63262, HEP Be Antibody/556, RUB ... - Serology rubella antibody, serum, IgG 2.88 Encounters Code Encounter Date Provider Facility [facility]-87989 Level 3 Est. Patient 18:10:26 CDT Sahara Rodriguez MD PhD [facility]-44011 Level 3 Est. Patient 14:49:50 CDT Vishal Hui MD [facility]-78706 Level 4 Est. Patient 18:41:46 CDT Neeraj Collins MD [facility]-80700 Level 4 Est. Patient 09:18:38 SERVICE DESK MANAGER Vishal Hui MD [facility]-96705 Level 3 Est. Patient 14:43:55 SERVICE DESK MANAGER Vishal Hui MD [facility]-17866 Level 3 Est. Patient 15:26:33 SERVICE DESK MANAGER Sahara Rodriguez MD PhD [facility]-46181 Level 3 Est. Patient 10:32:14 SERVICE DESK MANAGER Vishal Hui MD [facility]-66850 Level 3 Est. Patient 15:12:52 SERVICE DESK MANAGER Vishal Hui MD [facility]-24406 Level 4 Est. Patient 09:19:27 CDT Vishal Hui MD [facility]-43093 Level 3 Est. Patient 15:53:00 CDT Renzo Thornton [facility] CPT-37439 Level 3 Est. Patient 15:50:30 CDT Renzo [facility] CPT-71061 Level 3 Est. Patient 16:55:24 CDT Vishal Hui MD [facility] Procedures Code Procedure Name Date Entry Date Standard Description CPT-86232 Recombivax HB Injection Suspension 5 MCG/0.5ML 10:00:41 CDT CPT-68779 Administration single or combination vaccine inc oral 10 :00:41 CDT CPT-08679 Sono transvag pelvis non OB uterus ovaries cervix 16:36: 57 CDT CPT-98641 LS spine comp w obliq 09:50:55 SERVICE DESK MANAGER CPT-43029 Abd compl w upright 09:50:55 SERVICE DESK MANAGER CPT-J1100 Decadron 4mg (Dexamethasone) 15:51:24 SERVICE DESK MANAGER CPT-J1030 Depo Medrol 40 mg (Methyl Prednisolone Acetate) 15:51: 24 SERVICE DESK MANAGER CPT-29190 Abx/Therapy Injection 15:51:24 SERVICE DESK MANAGER CPT-J1100 Decadron 4mg (Dexamethasone) 15:26:33 SERVICE DESK MANAGER CPT-J1030 Depo Medrol 40 mg (Methyl Prednisolone Acetate) 15:26: 33 SERVICE DESK MANAGER CPT-51326 Sono retroperitoneal complete kidneys and bladder 17:15: 30 CDT CPT-87708 Abd compl w upright 16:09:25 CDT CPT-J1100 Decadron 8mg (Dexamethasone) 17:07:57 CDT CPT-59571 Abx/Therapy Injection 17:07:57 CDT CPT-J1100 Decadron 8mg (Dexamethasone) 16:55:24 CDT CPT-72632 Chest 2V Frontal and Lat 16:32:44 CDT
--- OUTSIDE RECORDS SUMMARY | 2016-11-05 01:49 | XMS REPORT | Clinical Summary ---
Author Author Admin, E Organization [employer] Address Unknown Phone Unavailable Allergies, Adverse Reactions, [...] of unspecified site Fatigue 780.79 Active Neeraj Clolins MD Other malaise and fatigue Vitamin B12 [...] 1 four times a day CLINDAMYCIN HCL 11241632637 No Longer Active Neeraj Collins MD Active KEFLEX 500 MG ORAL CAPS 1 cap QID by mouth CEPHALEXIN 39241997928 No Longer Active Neeraj Collins MD Active DIFLUCAN 150 MG TABS 1 pill every other day x 2 doses FLUCONAZOLE 75966769962 No Longer Active Sahara Rodriguez MD PhD Active MELATONIN 3 MG CAPS 2 po q hs MELATONIN 27262652477 No Longer Active Sahara Rodriguez MD PhD Active MULTIVITAMINS CAPS Take one by mouth daily MULTIPLE VITAMIN 93738463348 No Longer Active Sahara Rodriguez MD PhD Active BACTRIM DS 800-160 MG TAB 1 tab by mouth twice daily TRIMETHOPRIM-SULFAMETHOXAZOLE 50452026024 No Longer Active Sahara Rodriguez MD PhD Active [employer] PROBIOTIC ORAL CHEW 2 daily po PROBIOTIC PRODUCT 72996133737 No Longer Active Sahara Rodriguez MD PhD Active IBUPROFEN 600 MG TAB 1 po TID PRN IBUPROFEN 73973658001 Active Luigi Martínez LINE AND FRAME POLER Active BACTRIM DS 800-160 MG TABS 1 po BID x 7 days SULFAMETHOXAZOLE-TRIMETHOPRIM 86224938992 No Longer Active Vishal Hui MD Active CHANTIX STARTING MONTH EARNEST 0.5 MG X 11 & 1 MG X 42 TABS 0.5mg daily for 3 days , then 0.5mg BID for 4 days, then 1mg BID VARENICLINE TARTRATE 59382586897 No Longer Active TAMARA Gray Active METOPROLOL TARTRATE 50 MG TAB 1 po bid METOPROLOL TARTRATE 39039520170 Active Vishal Hui MD Active TRAZODONE HCL 100 MG TAB take 1 at bedtime TRAZODONE HCL 48178990463 Active Vishal Hui MD Active AMLODIPINE BESYLATE 5 MG TABS 1 tablet by mouth daily AMLODIPINE BESYLATE 78891085028 Active Vishal Hui MD Active VERAPAMIL HCL CR 120 MG TAB CR 1 po bid VERAPAMIL HCL 85764392050 No Longer Active Vishal Hui MD Active METOPROLOL SUCCINATE 50 MG TB24 1 tablet by mouth daily METOPROLOL SUCCINATE 58896219883 No Longer Active Vishal Hui MD Active TRAMADOL HCL 50 MG TABS 1-2 po TID PRN Pain TRAMADOL HCL 26693510504 Active Vishal Hui MD Active SAPHRIS 5 MG SUBL 1 po bid ASENAPINE MALEATE 91582803691 Active Vishal Hui MD Active SAPHRIS 10 MG SUBL 1 tab po bid ASENAPINE MALEATE 14899874589 No Longer Active Vishal Hui MD Active LISINOPRIL 20 MG TABS 1 tab po qd LISINOPRIL 29456374200 No Longer Active Vishal Hui MD Active BENADRYL 25 MG CAP 2 po tid prn anxiety DIPHENHYDRAMINE HCL 68832250232 Active Vishal Hui MD Active LATUDA 80 MG TABS Take one by mouth daily LURASIDONE HCL 61225950402 Active Vishal Hui MD Active LATUDA 20 MG TABS Take one by mouth daily LURASIDONE HCL 74160949152 No Longer Active Vishal Hui MD Active TRAZODONE HCL 50 MG TABS 1/2 tab po qd prn for anxiety TRAZODONE HCL 33650515083 No Longer Active Vishal Hui MD Active PIROXICAM 20 MG CAPS 1 cap po qd PRN Pain PIROXICAM 58616062401 Active Vishal Hui MD Active OMEPRAZOLE 20 MG TBEC 1 po q a.m. 30min prior to first food intake OMEPRAZOLE 11610156953 Active Vishal Hui MD Active RANITIDINE HCL 150 MG CAPS 1 twice a day RANITIDINE HCL 86108326839 Active Vishal Hui MD Active PROZAC 20 MG CAP Take one by mouth daily FLUOXETINE HCL 49901138604 Active Vishal Hui MD Active LINZESS 290 MCG CAPS Take one by mouth daily LINACLOTIDE 81877329237 Active Vishal Hui MD Active SAPHRIS 5 MG SUBL 1 tab po qd ASENAPINE MALEATE 93743937458 No Longer Active Vishal Hui MD Active ZALEPLON 10 MG CAPS 1 cap po every other night ZALEPLON 54908213421 No Longer Active Vishal Hui MD Active LYRICA 50 MG CAPS 1 tab po TID PREGABALIN 91717189414 No Longer Active Vishal Hui MD Active LORATADINE 10 MG TABS 1 tab po qd LORATADINE 30541615969 No Longer Active Vishal Hui MD Active VERAPAMIL HCL ER 180 MG CR-TABS 1 tab po bid VERAPAMIL HCL 69121434654 No Longer Active Vishal Hui MD Active MIRALAX POWD 1 capfull once daily POLYETHYLENE GLYCOL 3350 82369729141 No Longer Active Vishal Hui MD Active PREDNISONE 20 MG TABS 1 tab po qd PREDNISONE 80037351662 No Longer Active Renzo Thornton DO Active LEVOFLOXACIN 500 MG TABS 1 tab po qd LEVOFLOXACIN 73974025377 No Longer Active Renzo Thornton DO Active BUSPIRONE HCL 15 MG TABS 1 tab po TID BUSPIRONE HCL 36148451880 No Longer Active Renzo Thornton DO Active BENZTROPINE MESYLATE 1 MG TABS 1 tab po qd BENZTROPINE MESYLATE 19111610415 No Longer Active Renzo Thornton DO Active ATENOLOL 25 MG TABS 1 tab po qd ATENOLOL 45526993475 No Longer Active Renzo Thornton DO Active ESCITALOPRAM OXALATE 20 MG TABS 1 tab po qd ESCITALOPRAM OXALATE 57286068003 No Longer Active Renzo Thornton DO Active ADVAIR DISKUS 250-50 MCG/DOSE AEPB 1 puff BID FLUTICASONE-SALMETEROL 38280177357 No Longer Active Renzo Thornton DO Active PREDNISONE 20 MG TAB 2 tabs daily for 3 days, 1 tab daily for 3 days, 1/2 tab daily for 2 days PREDNISONE 04430836482 No Longer Active Vishal Hui MD Active CEFDINIR 300 MG CAPS by mouth twice a day CEFDINIR 39540246165 No Longer Active Vishal Hui MD Active LANSOPRAZOLE 30 MG CPDR 1 cap po qd LANSOPRAZOLE 17255138068 No Longer Active Vishal Hui MD Active TOPAMAX 25 MG TABS 1 tab po bid TOPIRAMATE 97895014693 Active Vishal Hui MD Active MINIPRESS 2 MG CAPS 1 cap po at night PRAZOSIN HCL 18034807097 Active Vishal Hui MD Active BACLOFEN 20 MG TABS 1 tab po tid BACLOFEN 11338885281 Active Vishal Hui MD Active ADVAIR DISKUS 250-50 MCG/DOSE AEPB 1 puff BID ADVAIR DISKUS 250-50 MCG/DOSE AEPB FLUTICASONE-SALMETEROL Inactive ESCITALOPRAM OXALATE 20 MG TABS 1 tab po qd ESCITALOPRAM OXALATE 20 MG TABS 929042 ESCITALOPRAM OXALATE Inactive ATENOLOL 25 MG TABS 1 tab po qd ATENOLOL 25 MG TABS 462405 ATENOLOL Inactive BENZTROPINE MESYLATE 1 MG TABS 1 tab po qd BENZTROPINE MESYLATE 1 MG TABS 486103 BENZTROPINE MESYLATE Inactive BUSPIRONE HCL 15 MG TABS 1 tab po TID BUSPIRONE HCL 15 MG TABS 588874 BUSPIRONE HCL Inactive LEVOFLOXACIN 500 MG TABS 1 tab po qd LEVOFLOXACIN 500 MG TABS 311315 LEVOFLOXACIN Inactive PREDNISONE 20 MG TABS 1 tab po qd PREDNISONE 20 MG TABS 626678 PREDNISONE Inactive MIRALAX POWD 1 capfull once daily MIRALAX POWD 850539 POLYETHYLENE GLYCOL 3350 Inactive VERAPAMIL HCL ER 180 MG CR-TABS 1 tab po bid VERAPAMIL HCL ER 180 MG CR-TABS VERAPAMIL HCL Inactive LORATADINE 10 MG TABS 1 tab po qd LORATADINE 10 MG TABS 302042 LORATADINE Inactive LYRICA 50 MG CAPS 1 tab po TID LYRICA 50 MG CAPS PREGABALIN Inactive ZALEPLON 10 MG CAPS 1 cap po every other night ZALEPLON 10 MG CAPS 410611 ZALEPLON Inactive SAPHRIS 5 MG SUBL 1 tab po qd SAPHRIS 5 MG SUBL ASENAPINE MALEATE Inactive TRAZODONE HCL 50 MG TABS 1/2 tab po qd prn for anxiety TRAZODONE HCL 50 MG TABS 047445 TRAZODONE HCL Inactive LATUDA 20 MG TABS Take one by mouth daily LATUDA 20 MG TABS LURASIDONE HCL Inactive LISINOPRIL 20 MG TABS 1 tab po qd LISINOPRIL 20 MG TABS 858109 LISINOPRIL Inactive SAPHRIS 10 MG SUBL 1 [...] po q hs MELATONIN 3 MG CAPS 018102 MELATONIN Inactive KEFLEX 500 MG ORAL CAPS 1 cap QID by mouth KEFLEX 500 MG ORAL CAPS 628319 CEPHALEXIN Inactive CLINDAMYCIN HCL 150 MG CAPS 1 four times a day CLINDAMYCIN HCL 150 MG CAPS 862091 CLINDAMYCIN HCL Inactive CEFDINIR 300 MG CAPS by mouth twice a day CEFDINIR 300 MG CAPS 878041 CEFDINIR Inactive PREDNISONE 20 MG TAB 2 tabs daily for 3 days, 1 tab daily for 3 days, 1/2 tab daily for 2 days PREDNISONE 20 MG TAB 103628 PREDNISONE Inactive BACTRIM DS 800-160 MG TABS 1 po BID x 7 days BACTRIM DS 800-160 MG TABS SULFAMETHOXAZOLE-TRIMETHOPRIM Inactive DIFLUCAN 150 MG TABS 1 pill every other day x 2 doses DIFLUCAN 150 MG TABS 616664 FLUCONAZOLE Inactive Vital Signs Date Name Value [...] ... - Chemistry sodium, serum 140 mmol/L 042-021 3306/05/28 potassium, serum 4.2 mmol/L 3.5-5.2 chloride, serum [...] Panel - Chemistry sodium, serum 141 mmol/L 534-787 1490 potassium, serum 4.3 mmol/L 3.5-5.2 chloride, serum [...] Panel - Chemistry sodium, serum 139 mmol/L 528-794 1405/12/31 potassium, serum 4.8 mmol/L 3.5-5.2 chloride, serum 106 mmol/L 98-107 carbon dioxide, venous blood 24.3 mmol/L 21.0-32.0 blood glucose 90 mg/dL 65-110 urea nitrogen, blood 16 mg/dL 7-18 creatinine, serum 1.00 mg/dL 0.60-1.30 alanine aminotransferase (SGPT), serum 41 U/L 12-78 aspartate aminotransferase (SGOT), serum 17 U/L 15-37 calcium, serum 8.6 mg/dL 8.5-10.1 bilirubin, serum, total 0.30 mg/dL 0.00-1.00 cholesterol, serum 108 mg/dL 995-629 5047/12/31 triglyceride, serum, fasting 120 mg/dL 30-200 HDL [...] semiquantitative 7.0 5.0-8.5 Lab Report: Varicella-Zoater Inga IgG,IgM/71740, HEP Be Antibody/556, RUB ... - Serology rubella antibody, serum, IgG 2.88 Encounters Code Encounter Date Provider Facility [facility]-66619 Level 4 Est. Patient 13:59:09 CDT Neeraj Collins MD [facility]-53791 Level 3 Est. Patient 15:19:43 CDT Renzo Thornton DO [facility] CPT-13414 Level 3 Est. Patient 18:10:26 CDT Sahara Rodriguez MD PhD [facility]-24811 Level 3 Est. Patient 14:49:50 CDT Vishal Hui MD [facility] CPT-75521 Level 4 Est. Patient 18:41:46 CDT Neeraj Collins MD [facility] CPT-50418 Level 4 Est. Patient 09:18:38 SHEET METAL FABRICATOR Vishal Hui MD [facility]-97124 Level 3 Est. Patient 14:43:55 SHEET METAL FABRICATOR Vishal Hui MD [facility]-08576 Level 3 Est. Patient 15:26:33 SHEET METAL FABRICATOR Sahara Rodriguez MD PhD [facility] CPT-12388 Level 3 Est. Patient 10:32:14 SHEET METAL FABRICATOR Vishal Hui MD [facility] CPT-98694 Level 3 Est. Patient 15:12:52 SHEET METAL FABRICATOR Vishal Hui MD [facility] CPT-38928 Level 4 Est. Patient 09:19:27 CDT Vishal Hui MD [facility] CPT-93709 Level 3 Est. Patient 15:53:00 CDT Renzo Thornton [facility] CPT-78036 Level 3 Est. Patient 15:50:30 CDT Renzo Thornton [facility] CPT-28755 Level 3 Est. Patient 16:55:24 CDT Vishal Hui MD [facility] Procedures Code Procedure Name Date Entry Date Standard Description CPT-J3420 Vitamin B12 1000mcg (Cyanocobalamin) 08:27:05 CDT 08/20 CPT-08053 Abx/Therapy Injection 08:27:05 CDT CPT-89934 Recombivax HB Injection Suspension 5 MCG/0.5ML 10:00:41 CDT CPT-82463 Administration single or combination vaccine inc oral 10 :00:41 CDT CPT-53650 Sono transvag pelvis non OB uterus ovaries cervix 16:36: 57 CDT CPT-78990 LS spine comp w obliq 09:50:55 SHEET METAL FABRICATOR CPT-12471 Abd compl w upright 09:50:55 SHEET METAL FABRICATOR CPT-J1100 Decadron 4mg (Dexamethasone) 15:51:24 SHEET METAL FABRICATOR CPT-J1030 Depo Medrol 40 mg (Methyl Prednisolone Acetate) 15:51: 24 SHEET METAL FABRICATOR CPT-59658 Abx/Therapy Injection 15:51:24 SHEET METAL FABRICATOR CPT-J1100 Decadron 4mg (Dexamethasone) 15:26:33 SHEET METAL FABRICATOR CPT-J1030 Depo Medrol 40 mg (Methyl Prednisolone Acetate) 15:26: 33 SHEET METAL FABRICATOR CPT-16620 Sono retroperitoneal complete kidneys and bladder 17:15: 30 CDT CPT-17456 Abd compl w upright 16:09:25 CDT CPT-J1100 Decadron 8mg (Dexamethasone) 17:07:57 CDT CPT-49398 Abx/Therapy Injection 17:07:57 CDT CPT-J1100 Decadron 8mg (Dexamethasone) 16:55:24 CDT CPT-30835 Chest 2V Frontal and Lat 16:32:44 CDT
--- OUTSIDE RECORDS SUMMARY | 2016-11-05 01:52 | XMS REPORT | Clinical Summary ---
Author Author Admin, E Organization [facility] Address Unknown Phone Unavailable Allergies, Adverse Reactions, [...] MD Headache Elevated blood glucose 790.29 Resolved iVshal Hui MD Other abnormal glucose Polyarthralgia 719.49 [...] breath Nocturnal hypoxia 799.02 Active Fabiola Johnson [employer]ESSION[employer] Hypoxemia Neck pain 723.1 Resolved Vishal Hui [...] fibula Vaginal discharge 623.5 Active Luigi Martínez [employer] Leukorrhea, not specified as infective DYSURIA 788.1 Active Luigi Martínez APRN Dysuria Contraceptive management V25.09 Active Dipika Burgos MD Encounter for other general counseling and advice on contraceptive management Cellulitis and abscess of breast 611.0 Active Ahmet Carbajal MD Inflammatory disease of breast Cigarette smoker 305.1 Active Ahmet Carbajal MD Tobacco use disorder Pneumonia, organism unspecified ICD-486 Inactive Vishal Hui MD Flank pain, right ICD-789.09 Inactive Vishal Hui MD G E R D ICD-530.81 Inactive Vishal Hui MD Anxiety Disorder ICD-300.00 Jim Hui MD Abdominal pain ICD-789.00 Jim Hui [...] a day as needed 2015 ALBUTEROL SULFATE 41804854924 Active Ahmet Carbajal MD Active EQ NICOTINE 21 MG/24HR TRANS PT24 Apply daily to stop smoking NICOTINE 26996098662 Active Ahmet Carbajal MD Active BACTRIM DS 800-160 MG TABS 1 twice a day SULFAMETHOXAZOLE- TRIMETHOPRIM 60801975309 Active Ahmet Carbajal MD Active ADVAIR DISKUS 250-50 MCG/DOSE INH AEPB 1 puff twice a day for asthma FLUTICASONE-SALMETEROL 14978612351 Active Ahmet Carbajal MD Active MONISTAT 7 COMBO PACK WOODROW 100 & 2 MG-% (9GM) VAG KIT 1 applicatorful per vagina q pm x 7 MICONAZOLE NITRATE 04014392627 No Longer Active Ahmet Carbajal MD Active FLAGYL 500 MG TAB 1 tablet by mouth bid METRONIDAZOLE 79140815974 No Longer Active Ahmet Carbajal MD Active OXYCODONE HCL ER 10 MG ORAL T12A 1/2 tab by mouth every 4 hours prn OXYCODONE HCL 75546447992 No Longer Active Ahmet Carbajal MD Active METHYLPREDNISOLONE 4 MG ORAL TABS po daily METHYLPREDNISOLONE 50964392536 No Longer Active Ahmet Carbajal MD Active LEVOFLOXACIN 500 MG ORAL TABS po daily LEVOFLOXACIN 12720206778 No Longer Active Ahmet Carbajal MD Active VIIBRYD 10 MG ORAL TABS Take 1 tablet once a day VILAZODONE HCL 25797845040 No Longer Active Ahmet Carbajal MD Active TOPAMAX 50 MG ORAL TABS 1 tab twice daily TOPIRAMATE 65112626873 No Longer Active Ahmet Carbajal MD Active DICLOFENAC SODIUM 50 MG TBEC 1 tablet by mouth four times daily PRN Pain 2015 DICLOFENAC SODIUM 93396088412 No Longer Active Ahmet Carbajal MD Active ADZENYS XR-ODT 6.3 MG ORAL TBED 1 tab po daily for ADHD AMPHETAMINE 59788523024 No Longer Active Ahmet Carbaajl MD Active CHANTIX 1 MG TABS 1 twice a day to help quit smoking VARENICLINE TARTRATE 66317016429 No Longer Active Dipika Burgos MD Active CHANTIX STARTING MONTH EARNEST 0.5 MG X 11 & 1 MG X 42 TABS take as directed 2015 VARENICLINE TARTRATE 83732566620 No Longer Active Dipika Burgos MD Active TESSALON PERLES 100 MG CAP 1 to 2 tablets by mouth 3 times daily as needed for cough BENZONATATE 70315987486 No Longer Active Luigi Martínez [employer]ONTESS[employer] PARAPROFESSIONAL Active ABILIOMAR MAINTENA 400 MG IM SUSR 400mg injection every 26 days ARIPIPRAZOLE 74444279706 Active Silvia Casey JUVENILE OFFICER Active IMITREX 50 MG ORAL TABS 0.5 po x 1 PRN Headache. May repeat dose x 1 in 2 hours if needed SUMATRIPTAN SUCCINATE 45671342921 Active Vishal Hui MD Active HYDROCODONE-ACETAMINOPHEN 5-325 MG TABS 1 to 2 four times a day as needed for pain use until can be seen by specialist HYDROCODONE- ACETAMINOPHEN 68725362472 No Longer Active Vishal Hui MD Active PROAIR HFA 108 (90 BASE) MCG/ACT AERS 2 puffs four times a day as needed 2015 ALBUTEROL SULFATE 74444789094 No Longer Active Vishal Hui MD Active PREDNISONE 20 MG TABS 2 daily for 5 days then 1 daily for 5 days PREDNISONE 01683507957 No Longer Active Vishal Hui MD Active ZITHROMAX Z-EARNEST 250 MG TABS 2 today and then 1 daily for 4 days AZITHROMYCIN 76222503364 No Longer Active Vishal Hui MD Active DICLOFENAC POTASSIUM TABS Take 1 tablet twice a day (pt. is not sure of the dose.) DICLOFENAC POTASSIUM TABS 04734227068 No Longer Active Vishal Hui MD Active VERAPAMIL HCL ER 120 MG ORAL CR-TABS Take 1 tablet by mouth twice a day. VERAPAMIL HCL 31522237083 Active Vishal Hui MD Active FLAGYL 500 MG TAB 1 tablet by mouth bid METRONIDAZOLE 72684129046 No Longer Active Vishal Hui MD Active FLUTICASONE PROPIONATE 50 MCG/ACT SUSP 2 sprays each nostril daily before bed. FLUTICASONE PROPIONATE 99807459648 Active Fabiola Johnson APRN Active BENADRYL 25 MG CAP 4 po at bedtime for insomnia DIPHENHYDRAMINE HCL 46563817559 Active Fabiola Johnson APRN Active KLONOPIN 1 MG ORAL TABS 1 tab po TID CLONAZEPAM 42483318319 Active Fabiola Johnson APRN Active VALIUM 5 MG TAB Take 1-2 tablets daily DIAZEPAM 58000821875 No Longer Active Fabiola Johnson APRN Active METOPROLOL TARTRATE 25 MG ORAL TABS 1/2 tablet twice daily for heart rate and blood pressure METOPROLOL TARTRATE 21552018355 No Longer Active Fabiola Johnson APRN Active MIRALAX ORAL POWD 17GMS DAILY IN WATER POLYETHYLENE GLYCOL 3350 31432258722 Active Vishal Hui MD Active MIRALAX PACK 1 po qd PRN Constipation POLYETHYLENE GLYCOL 3350 56731825957 No Longer Active Ahmet Carbajal MD Active MINIPRESS 2 MG CAPS 4 cap po at night PRAZOSIN HCL 41166012626 No Longer Active Ahmet Carbajal MD Active PIROXICAM 20 MG CAPS 1 cap po qd PRN Pain PIROXICAM 36823141139 No Longer Active Ahmet Carbajal MD Active TRAMADOL HCL 50 MG TABS 1-2 po TID PRN Pain TRAMADOL HCL 73700251602 No Longer Active Ahmet Carbajal MD Active METOPROLOL TARTRATE 50 MG TAB 1 po bid METOPROLOL TARTRATE 72402261222 No Longer Active Ahmet Carbajal MD Active ABILIFY 15 MG ORAL TABS 1 tab daily ARIPIPRAZOLE 62286479755 No Longer Active Ahmet Carbajal MD Active PROZAC 20 MG ORAL CAPS 1 tab daily FLUOXETINE HCL 26141132069 No Longer Active Ahmet Carbajal MD Active AMBIEN 5 MG ORAL TABS 1 tab at bedtime ZOLPIDEM TARTRATE 11889858328 No Longer Active Ahmet Carbajal MD Active PREDNISONE 20 MG TAB 2 tabs daily for 4 days, 1 tab daily for 4 days, 1/2 tab daily for 4 days PREDNISONE 23600860603 No Longer Active Ahmet Carbajal MD Active KEFLEX 500 MG CAP 1 po TID x 10 days CEPHALEXIN 82416682213 No Longer Active Vishal Hui MD Active SAPHRIS 5 MG SUBL 1 po bid ASENAPINE MALEATE 15899940634 No Longer Active Jillina Mauricio [employer]ESS[employer] PARAPROFESSIONAL Active LATUDA 80 MG TABS Take one by mouth daily LURASIDONE HCL 73961605001 No Longer Active Jillina Frazell [employer]ESS[employer] PARAPROFESSIONAL Active AMLODIPINE BESYLATE 5 MG TABS 1 tablet by mouth daily AMLODIPINE BESYLATE 92024989203 No Longer Active Jillina Fradwightl [employer]ONTESSORI PARAPROFESSIONAL Active AMITRIPTYLINE HCL 100 MG TAB one at hs AMITRIPTYLINE HCL 54148881920 No Longer Active Vishal Hui MD Active TRAZODONE HCL 100 MG TAB take 1 at bedtime TRAZODONE HCL 18132395479 No Longer Active Vishal Hui MD Active VYVANSE 40 MG CAPS 1 daily, LISDEXAMFETAMINE DIMESYLATE 27673117878 No Longer Active Vishal Hui MD Active IBUPROFEN 600 MG TAB 1 po TID PRN IBUPROFEN 52895191392 No Longer Active Vishal Hui MD Active PROZAC 20 MG CAP Take one by mouth daily FLUOXETINE HCL 62248755197 No Longer Active Vishal Hui MD Active ZOFRAN 4 MG TABS 1 po q6hr PRN Nausea ONDANSETRON HCL Active Vishal Hui MD Active BACTRIM DS 800-160 MG TABS 1 pill by mouth twice daily SULFAMETHOXAZOLE-TRIMETHOPRIM 91715569671 No Longer Active Sahara Rodriguez MD PhD Active DIFLUCAN 150 MG TAB 1 tablet by mouth daily FLUCONAZOLE 78252937597 No Longer Active Vishal Hui MD Active TIZANIDINE HCL 4 MG TABS 1 po q6hr PRN Muscle Spasm/Back Pain TIZANIDINE HCL 40122436279 Active Vishal Hui MD Active CLINDAMYCIN HCL 150 MG CAPS 1 four times a day CLINDAMYCIN HCL 51809390147 No Longer Active Neeraj Collins MD Active KEFLEX 500 MG ORAL CAPS 1 cap QID by mouth CEPHALEXIN 46054847538 No Longer Active Neeraj Collins MD Active DIFLUCAN 150 MG TABS 1 pill every other day x 2 doses FLUCONAZOLE 36007855239 No Longer Active Sahara Rodriguez MD PhD Active MELATONIN 3 MG CAPS 2 po q hs MELATONIN 74567434851 No Longer Active Sahara Rodriguez MD PhD Active MULTIVITAMINS CAPS Take one by mouth daily MULTIPLE VITAMIN 14109600398 No Longer Active Sahara Rodriguez MD PhD Active BACTRIM DS 800-160 MG TAB 1 tab by mouth twice daily TRIMETHOPRIM-SULFAMETHOXAZOLE 35409331354 No Longer Active Sahara Rodriguez MD PhD Active [facility] PROBIOTIC ORAL CHEW 2 daily po PROBIOTIC PRODUCT 44327492525 No Longer Active Sahara Rodriguez MD PhD Active BACTRIM DS 800-160 MG TABS 1 po BID x 7 days SULFAMETHOXAZOLE-TRIMETHOPRIM 16646835686 No Longer Active Vishal Hui MD Active CHANTIX STARTING MONTH EARNEST 0.5 MG X 11 & 1 MG X 42 TABS 0.5mg daily for 3 days , then 0.5mg BID for 4 days, then 1mg BID VARENICLINE TARTRATE 91969069826 No Longer Active TAMARA Gray Active VERAPAMIL HCL CR 120 MG TAB CR 1 po bid VERAPAMIL HCL 83160328916 No Longer Active Vishal Hui MD Active METOPROLOL SUCCINATE 50 MG TB24 1 tablet by mouth daily METOPROLOL SUCCINATE 68010267009 No Longer Active Vishal Hui MD Active SAPHRIS 10 MG SUBL 1 tab po bid ASENAPINE MALEATE 27793367657 No Longer Active Vishal Hui MD Active LISINOPRIL 20 MG TABS 1 tab po qd LISINOPRIL 55689557843 No Longer Active Vishal Hui MD Active LATUDA 20 MG TABS Take one by mouth daily LURASIDONE HCL 56618193692 No Longer Active Vishal Hui MD Active TRAZODONE HCL 50 MG TABS 1/2 tab po qd prn for anxiety TRAZODONE HCL 87080838888 No Longer Active Vishal Hui MD Active OMEPRAZOLE 20 MG TBEC 1 po q a.m. 30min prior to first food intake OMEPRAZOLE 18453311780 Active Vishal Hui MD Active RANITIDINE HCL 150 MG CAPS 1 twice a day RANITIDINE HCL 64110777375 Active Luigi Martínez APRN Active LINZESS 290 MCG CAPS Take one by mouth daily LINACLOTIDE 34604293358 No Longer Active Vihsal Hui MD Active SAPHRIS 5 MG SUBL 1 tab po qd ASENAPINE MALEATE 40385175139 No Longer Active Vishal Hui MD Active ZALEPLON 10 MG CAPS 1 cap po every other night ZALEPLON 66891737174 No Longer Active Vishal Hui MD Active LYRICA 50 MG CAPS 1 tab po TID PREGABALIN 39776604969 No Longer Active Vishal Hui MD Active LORATADINE 10 MG TABS 1 tab po qd LORATADINE 61357860068 No Longer Active Vishal Hui MD Active VERAPAMIL HCL ER 180 MG CR-TABS 1 tab po bid VERAPAMIL HCL 89690676439 No Longer Active Vishal Hui MD Active MIRALAX POWD 1 capfull once daily POLYETHYLENE GLYCOL 3350 69809216164 No Longer Active Vishal Hui MD Active PREDNISONE 20 MG TABS 1 tab po qd PREDNISONE 26536333987 No Longer Active Renzo Thornton DO Active LEVOFLOXACIN 500 MG TABS 1 tab po qd LEVOFLOXACIN 70798438430 No Longer Active Renzo Thornton DO Active BUSPIRONE HCL 15 MG TABS 1 tab po TID BUSPIRONE HCL 54930632549 No Longer Active Renzo Thornton DO Active BENZTROPINE MESYLATE 1 MG TABS 1 tab po qd BENZTROPINE MESYLATE 52560994458 No Longer Active Renzo Thornton DO Active ATENOLOL 25 MG TABS 1 tab po qd ATENOLOL 20836227501 No Longer Active Renzo Thornton DO Active ESCITALOPRAM OXALATE 20 MG TABS 1 tab po qd ESCITALOPRAM OXALATE 76792089633 No Longer Active Renzo Thornton DO Active ADVAIR DISKUS 250-50 MCG/DOSE AEPB 1 puff BID FLUTICASONE-SALMETEROL 90478373627 No Longer Active Renzo Thornton DO Active PREDNISONE 20 MG TAB 2 tabs daily for 3 days, 1 tab daily for 3 days, 1/2 tab daily for 2 days PREDNISONE 40416977637 No Longer Active Vishal Hui MD Active CEFDINIR 300 MG CAPS by mouth twice a day CEFDINIR 34378984448 No Longer Active Vishal Hui MD Active LANSOPRAZOLE 30 MG CPDR 1 cap po qd LANSOPRAZOLE 13620061120 No Longer Active Vishal Hui MD Active BACLOFEN 20 MG TABS 1 tab po tid BACLOFEN 14176727719 No Longer Active Vishal Hui MD Active ADVAIR DISKUS 250-50 MCG/DOSE AEPB 1 puff BID ADVAIR DISKUS 250-50 MCG/DOSE AEPB FLUTICASONE-SALMETEROL Inactive ESCITALOPRAM OXALATE 20 MG TABS 1 tab po qd ESCITALOPRAM OXALATE 20 MG TABS 412031 ESCITALOPRAM OXALATE Inactive ATENOLOL 25 MG TABS 1 tab po qd ATENOLOL 25 MG TABS 972114 ATENOLOL Inactive BENZTROPINE MESYLATE 1 MG TABS 1 tab po qd BENZTROPINE MESYLATE 1 MG TABS 824585 BENZTROPINE MESYLATE Inactive BUSPIRONE HCL 15 MG TABS 1 tab po TID BUSPIRONE HCL 15 MG TABS 197340 BUSPIRONE HCL Inactive LEVOFLOXACIN 500 MG TABS 1 tab po qd LEVOFLOXACIN 500 MG TABS 943392 LEVOFLOXACIN Inactive PREDNISONE 20 MG TABS 1 tab po qd PREDNISONE 20 MG TABS 417571 PREDNISONE Inactive MIRALAX POWD 1 capfull once daily MIRALAX POWD 139299 POLYETHYLENE GLYCOL 3350 Inactive VERAPAMIL HCL ER 180 MG CR-TABS 1 tab po bid VERAPAMIL HCL ER 180 MG CR-TABS VERAPAMIL HCL Inactive LORATADINE 10 MG TABS 1 tab po qd LORATADINE 10 MG TABS 231297 LORATADINE Inactive LYRICA 50 MG CAPS 1 tab po TID LYRICA 50 MG CAPS PREGABALIN Inactive ZALEPLON 10 MG CAPS 1 cap po every other night ZALEPLON 10 MG CAPS 804882 ZALEPLON Inactive SAPHRIS 5 MG SUBL 1 tab po qd SAPHRIS 5 MG SUBL ASENAPINE MALEATE Inactive TRAZODONE HCL 50 MG TABS 1/2 tab po qd prn for anxiety TRAZODONE HCL 50 MG TABS 331392 TRAZODONE HCL Inactive LATUDA 20 MG TABS Take one by mouth daily LATUDA 20 MG TABS LURASIDONE HCL Inactive LISINOPRIL 20 MG TABS 1 tab po qd LISINOPRIL 20 MG TABS 886806 LISINOPRIL Inactive SAPHRIS 10 MG SUBL 1 [...] twice daily BACTRIM DS 800-160 MG TAB 816087 TRIMETHOPRIM-SULFAMETHOXAZOLE Inactive MULTIVITAMINS CAPS Take one by mouth daily MULTIVITAMINS CAPS MULTIPLE VITAMIN Inactive MELATONIN 3 MG CAPS 2 po q hs MELATONIN 3 MG CAPS 385628 MELATONIN Inactive KEFLEX 500 MG ORAL CAPS 1 cap QID by mouth KEFLEX 500 MG ORAL CAPS 193658 CEPHALEXIN Inactive CLINDAMYCIN HCL 150 MG CAPS 1 four times a day CLINDAMYCIN HCL 150 MG CAPS 851359 CLINDAMYCIN HCL Inactive DIFLUCAN 150 MG TAB 1 tablet by mouth daily DIFLUCAN 150 MG TAB 676889 FLUCONAZOLE Inactive PROZAC 20 MG CAP Take one by mouth daily PROZAC 20 MG CAP 273621 FLUOXETINE HCL Inactive IBUPROFEN 600 MG TAB 1 po TID PRN IBUPROFEN 600 MG TAB 806516 IBUPROFEN Inactive VYVANSE 40 MG CAPS 1 daily, VYVANSE 40 MG CAPS LISDEXAMFETAMINE DIMESYLATE Inactive TRAZODONE HCL 100 MG TAB take 1 at bedtime TRAZODONE HCL 100 MG TAB 428430 TRAZODONE HCL Inactive AMITRIPTYLINE HCL 100 MG TAB one at hs AMITRIPTYLINE HCL 100 MG TAB 727869 AMITRIPTYLINE HCL Inactive AMLODIPINE BESYLATE 5 MG TABS 1 tablet by mouth daily AMLODIPINE BESYLATE 5 MG TABS 017739 AMLODIPINE BESYLATE Inactive LATUDA 80 MG TABS Take one by mouth daily LATUDA 80 MG TABS LURASIDONE HCL Inactive SAPHRIS 5 MG SUBL 1 po bid SAPHRIS 5 MG SUBL ASENAPINE MALEATE Inactive PREDNISONE 20 MG TAB 2 tabs daily for 4 days, 1 tab daily for 4 days, 1/2 tab daily for 4 days PREDNISONE 20 MG TAB 591015 PREDNISONE Inactive AMBIEN 5 MG ORAL TABS 1 tab at bedtime AMBIEN 5 MG ORAL TABS 482608 ZOLPIDEM TARTRATE Inactive PROZAC 20 MG ORAL CAPS 1 tab daily PROZAC 20 MG ORAL CAPS 411532 FLUOXETINE HCL Inactive ABILIFY 15 MG ORAL TABS 1 tab daily ABILIFY 15 MG ORAL TABS 703194 ARIPIPRAZOLE Inactive METOPROLOL TARTRATE 50 MG TAB 1 po bid METOPROLOL TARTRATE 50 MG TAB 213240 METOPROLOL TARTRATE Inactive TRAMADOL HCL 50 MG TABS 1-2 po TID PRN Pain TRAMADOL HCL 50 MG TABS 248517 TRAMADOL HCL Inactive PIROXICAM 20 MG CAPS 1 cap po qd PRN Pain PIROXICAM 20 MG CAPS 097058 PIROXICAM Inactive MINIPRESS 2 MG CAPS 4 cap po at night MINIPRESS 2 MG CAPS 678989 PRAZOSIN HCL Inactive MIRALAX PACK 1 po qd PRN Constipation MIRALAX PACK 989448 POLYETHYLENE GLYCOL 3350 Inactive METOPROLOL TARTRATE 25 MG ORAL TABS 1/2 tablet twice daily for heart rate and blood pressure METOPROLOL TARTRATE 25 MG ORAL TABS 726842 METOPROLOL TARTRATE Inactive VALIUM 5 MG TAB Take 1-2 tablets daily VALIUM 5 MG TAB 485063 DIAZEPAM Inactive FLAGYL 500 MG TAB 1 tablet by mouth bid FLAGYL 500 MG TAB 920586 METRONIDAZOLE Inactive DICLOFENAC POTASSIUM TABS Take 1 tablet twice a day (pt. is not sure of the dose.) DICLOFENAC POTASSIUM TABS DICLOFENAC POTASSIUM TABS Inactive ZITHROMAX Z-EARNEST 250 MG TABS 2 today and then 1 daily for 4 days ZITHROMAX Z-EARNEST 250 MG TABS 6322697 AZITHROMYCIN Inactive PREDNISONE 20 MG TABS 2 daily for 5 days then 1 daily for 5 days PREDNISONE 20 MG TABS 050833 PREDNISONE Inactive PROAIR HFA 108 (90 BASE) MCG/ACT AERS 2 puffs four times a day as needed 2015 PROAIR HFA 108 (90 BASE) MCG/ACT AERS ALBUTEROL SULFATE Inactive HYDROCODONE-ACETAMINOPHEN 5-325 MG TABS 1 to 2 four times a day as needed for pain use until can be seen by specialist HYDROCODONE- ACETAMINOPHEN 5-325 MG TABS 028301 HYDROCODONE-ACETAMINOPHEN Inactive TESSALON PERLES 100 MG CAP 1 to 2 tablets by mouth 3 times daily as needed for cough TESSALON PERLES 100 MG CAP 718945 BENZONATATE Inactive CHANTIX STARTING MONTH EARNEST 0.5 [...] Pain 2015 DICLOFENAC SODIUM 50 MG TBEC 185102 DICLOFENAC SODIUM Inactive TOPAMAX 50 MG ORAL TABS 1 tab twice daily TOPAMAX 50 MG ORAL TABS 341447 TOPIRAMATE Inactive VIIBRYD 10 MG ORAL TABS Take 1 tablet once a day VIIBRYD 10 MG ORAL TABS VILAZODONE HCL Inactive LEVOFLOXACIN 500 MG ORAL TABS po daily LEVOFLOXACIN 500 MG ORAL TABS 642118 LEVOFLOXACIN Inactive METHYLPREDNISOLONE 4 MG ORAL TABS po daily METHYLPREDNISOLONE 4 MG ORAL TABS 696420 METHYLPREDNISOLONE Inactive OXYCODONE HCL ER 10 MG ORAL T12A 1/2 tab by mouth every 4 hours prn OXYCODONE HCL ER 10 MG ORAL T12A OXYCODONE HCL Inactive FLAGYL 500 MG TAB 1 tablet by mouth bid FLAGYL 500 MG TAB 862252 METRONIDAZOLE Inactive MONISTAT 7 COMBO PACK WOODROW 100 & 2 MG-% (9GM) VAG KIT 1 applicatorful per vagina q pm x 7 MONISTAT 7 COMBO PACK WOODROW 100 & 2 MG-% (9GM) VAG KIT MICONAZOLE NITRATE Inactive CEFDINIR 300 MG CAPS by mouth twice a day CEFDINIR 300 MG CAPS 384362 CEFDINIR Inactive PREDNISONE 20 MG TAB 2 tabs daily for 3 days, 1 tab daily for 3 days, 1/2 tab daily for 2 days PREDNISONE 20 MG TAB 598436 PREDNISONE Inactive BACTRIM DS 800-160 MG TABS 1 po BID x 7 days BACTRIM DS 800-160 MG TABS 19820521 SULFAMETHOXAZOLE-TRIMETHOPRIM Inactive DIFLUCAN 150 MG TABS 1 pill every other day x 2 doses DIFLUCAN 150 MG TABS 161265 FLUCONAZOLE Inactive BACTRIM DS 800-160 MG TABS 1 pill by mouth twice daily BACTRIM DS 800-160 MG TABS 19820521 SULFAMETHOXAZOLE-TRIMETHOPRIM Inactive KEFLEX 500 MG CAP 1 po TID x 10 days KEFLEX 500 MG CAP 882707 CEPHALEXIN Inactive Advance Directives Directive Description Start [...] % 11.6-14.8 platelet count 394 10^3/MM^3 10*3/mm3 334-213 7987/12/22 erythrocyte (RBC) count 4.19 10^6/MM^3 10*6/mm3 4.04-5.48 hemoglobin, blood 13.1 g/dL 12.0-16.0 hematocrit, blood 39.0 % 36.0-46.0 mean corpuscular volume, RBC 93 fL 80-97 mean corpuscular hemoglobin, RBC 31.4 pg 27.0-31.2 leukocyte count, blood 13.8 10^3/MM^3 10*3/mm3 4.6-10.2 mean corpuscular hemoglobin concentration, RBC 33.6 G/DL % 31.8- 35.4 red blood cell distribution width 14.4 % 11.6-14.8 platelet count 390 10^3/MM^3 10*3/mm3 106-091 9849/01/11 erythrocyte (RBC) count 4.46 10^6/MM^3 10*6/mm3 4.04-5.48 [...] % 11.6-14.8 platelet count 379 10^3/MM^3 10*3/mm3 246-266 8274/12/11 neutrophils as percent of blood leukocytes 58.9 % 42.2-75.2 monocytes as percent of blood leukocytes 8.1 % 1.7-9.3 lymphocytes as percent of blood leukocytes 29.2 % 20.5-51.1 erythrocyte (RBC) count 4.26 10^6/MM^3 10*6/mm3 4.04-5.48 hemoglobin, blood 13.6 g/dL 12.0-16.0 Lab Report: CBC W/DIFF, Comp. Metabolic Panel, HGBA1C, Lipid Panel - Chemistry sodium, serum 139 mmol/L 608-433 4465/12/03 carbon dioxide, venous blood 28.5 mmol/L 21.0-32.0 [...] 5.5 % 4.3-6.0 cholesterol, serum 159 mg/dL 591-724 3872/12/03 triglyceride, serum, fasting 118 mg/dL 30-200 HDL [...] 362 10^3/MM^3 10*3/mm3 142-424 Lab Report: Chlamydia/GC APTIMA/[id number] - Lab chlamydia DNA probe NOT DETECTED NOT DETECTED Lab Report: Chlamydia/GC [facility]TIMA/[id number] - Microbiology Neisseria gonorrhoeae DNA probe NOT DETECTED NOT DETECTED Lab Report: Comp. Metabolic Panel - Chemistry sodium, serum 140 mmol/L 853-613 4116/08/08 carbon dioxide, venous blood 33.7 mmol/L 21.0-32.0 [...] nitrogen, blood 8 mg/dL 7-18 sodium, serum 142 mmol/L 601-871 0439/06/08 creatinine, serum 0.75 mg/dL 0.55-1.30 alanine aminotransferase (SGPT), serum 49 U/L aspartate aminotransferase (SGOT), serum 28 U/L 15-37 calcium, serum 9.4 mg/dL 8.5-10.1 bilirubin, serum, total 0.30 mg/dL 0.00-1.00 sodium, serum 139 mmol/L 767-794 8352/01/11 carbon dioxide, venous blood 26.6 mmol/L 21.0-32.0 potassium, serum 4.1 mmol/L 3.5-5.2 chloride, serum 100 mmol/L 98-107 blood glucose 86 mg/dL 65-110 urea nitrogen, blood 16 mg/dL 7-18 creatinine, serum 1.00 mg/dL 0.55-1.30 alanine aminotransferase (SGPT), serum 48 U/L aspartate aminotransferase (SGOT), serum 17 U/L 15- calcium, serum 9.1 mg/dL 8.5-10.1 bilirubin, serum, total 0.40 mg/dL 0.00-1.00 sodium, serum 139 mmol/L 340-835 8627/12/22 creatinine, serum 0.90 mg/dL 0.55-1.30 alanine aminotransferase (SGPT), serum 38 U/L aspartate aminotransferase (SGOT), serum 19 U/L - calcium, serum 8.6 mg/dL 8.5-10.1 bilirubin, serum, total 0.30 mg/dL 0.00-1.00 carbon dioxide, venous blood 26.8 mmol/L 21.0-32.0 potassium, serum 4.2 mmol/L 3.5-5.2 chloride, serum 103 mmol/L 98-107 blood glucose 115 mg/dL 65-110 urea nitrogen, blood 20 mg/dL 7- Lab Report: Comp. Metabolic Panel, Erythrocyte Sed Rate - Chemistry sodium, serum 139 mmol/L 530-079 3106/12/11 creatinine, serum 0.96 mg/dL 0.55-1.30 alanine aminotransferase [...] semiquantitative Negative Negative appearance, urine Clear Clear glucose, urine, semiquantitative Negative Negative ketones, [...] mg/dL Encounters Code Encounter Date Provider Facility CPT-81137 Level 4 Est. Patient 14:45:00 AGENT PRODUCER Ahmet Carbajal MD [facility] CPT-65968 Level 3 Est. Patient 13:59:59 CDT Luigi Martínez [facility] [place] CPT-80731 Level 3 Est. Patient 18:18:53 CDT Neeraj Collins MD [facility] CPT-54908 Level 3 Est. Patient 15:50:44 CDT Vishal Hui MD [facility] CPT-28231 Level 3 Est. Patient 11:36:17 CDT Ahmet Carbajal MD [facility] CPT-01987 Level 3 Est. Patient 13:29:16 CDT Vishal Hui MD [facility] CPT-08044 Level 3 Est. Patient 14:27:52 CDT Neeraj Collins MD [facility] CPT-96293 Level 3 Est. Patient 08:56:03 CDT Luigi Martínez [facility] [place] CPT-53785 Level 4 Est. Patient 12:11:48 CDT Fabiola Johnson [facility] [place] CPT-61619 Level 3 New Patient 16:53:37 CDT Albert Caldera MD [facility] CPT-13731 Level 3 Est. Patient 11:25:49 CDT Renzo Thornton DO [facility] CPT-09251 Level 3 Est. Patient 15:22:01 CDT Ahmet Carbajal MD [facility] CPT-12721 Level 4 Est. Patient 09:00:51 AGENT PRODUCER Vishal Hui MD [facility] CPT-78134 Level 3 Est. Patient 11:37:33 AGENT PRODUCER Vishal Hiu MD [facility] CPT-96386 Level 3 Est. Patient 08:41:09 AGENT PRODUCER Vishal Hui MD [facility] CPT-07463 Level 4 Est. Patient 10:19:35 AGENT PRODUCER Vishal Hui MD [facility] CPT-49758 Level 3 Est. Patient 13:35:45 CDT Vishal Hui MD [facility] CPT-28377 Level 4 Est. Patient 10:08:37 CDT Vishal Hui MD [facility] CPT-83618 Level 3 Est. Patient 11:22:10 CDT Vishal Hui MD [facility] CPT-77078 Level 3 Est. Patient 11:03:32 CDT Sahara Rodriguez MD [facility]-27998 Level 3 Est. Patient 09:41:35 CDT Vishal Hui MD [facility] CPT-95970 Level 3 Est. Patient 12:00:41 CDT Neeraj Collins MD [facility] CPT-96090 Level 3 Est. Patient 09:16:24 CDT Vishal Hui MD [facility] CPT-03824 Level 4 Est. Patient 13:59:09 CDT Neeraj Collins MD [facility] CPT-04591 Level 3 Est. Patient 15:19:43 CDT Renzo Thornton DO [facility] CPT-14420 Level 3 Est. Patient 18:10:26 CDT Sahara Rodriguez MD [facility]-34011 Level 3 Est. Patient 14:49:50 CDT Vishal Hui MD [facility] CPT-57387 Level 4 Est. Patient 18:41:46 CDT Neeraj Collins MD [facility] CPT-54214 Level 4 Est. Patient 09:18:38 AGENT PRODUCER Vishal Hui MD [facility] CPT-27014 Level 3 Est. Patient 14:43:55 AGENT PRODUCER Vishal Hui MD [facility] CPT-48035 Level 3 Est. Patient 15:26:33 AGENT PRODUCER Sahara Rodriguez MD PhD [facility] CPT-11230 Level 3 Est. Patient 10:32:14 AGENT PRODUCER Vishal Hui MD [facility] CPT-17494 Level 3 Est. Patient 15:12:52 AGENT PRODUCER Vishal Hui MD [facility] CPT-14996 Level 4 Est. Patient 09:19:27 CDT Vishal Hui MD [facility] CPT-78970 Level 3 Est. Patient 15:53:00 CDT Renzo Thornton [facility] CPT-49348 Level 3 Est. Patient 15:50:30 CDT Renzo Thornton [facility] CPT-66504 Level 3 Est. Patient 16:55:24 CDT Vishal Hui MD [facility] Procedures Code Procedure Name Date Entry Date Standard Description CPT-97659 Abx/Therapy Injection 17:34:30 AGENT PRODUCER CPT-88279 Nexplanon Removal with Reinsertion 14:09:32 CDT CPT-J7307 Nexplanon (Implant) 14:09:32 CDT CPT-OV Office Visit 14:09:32 CDT CPT-07493 UA w micro - LAB USE ONLY 16:21:13 CDT CPT-99739 Wet Mount - LAB USE ONLY 16:21:13 CDT CPT-74826 First Vx - Ix admin for Medicare patients 14:37:47 CDT CPT-56447 Fluzone Preservative Free Intramuscular Suspension 14:37 :47 CDT CPT-93415 Abx/Therapy Injection 13:54:22 CDT CPT-65764 Abx/Therapy Injection 08:47:09 CDT CPT-25717 Abx/Therapy Injection 13:29:56 CDT CPT-86590 Abx/Therapy Injection 08:36:16 CDT CPT-34808 Wet Mount - LAB USE ONLY 17:44:58 CDT CPT-49173 UA w micro - LAB USE ONLY 17:44:58 CDT CPT-84414 CMP - LAB USE ONLY 17:44:58 CDT CPT-24478 Venipuncture Draw Fee 17:44:58 CDT CPT-26442 Cervical Min 4V - XRAY USE ONLY 09:01:40 CDT CPT-38248 Chest 2V Frontal and Lat - XRAY USE ONLY 11:06:31 CDT CPT-40723 EKG Trac and Interp - XRAY USE ONLY 11:31:43 CDT 08/26 CPT-J3420 Vitamin B12 1000mcg (Cyanocobalamin) 08:10:26 AGENT PRODUCER 04/12 CPT-77598 Abx/Therapy Injection 08:10:26 AGENT PRODUCER CPT-G0438 Initial Annual Wellness Exam 19:01:01 AGENT PRODUCER CPT-J3420 Vitamin B12 1000mcg (Cyanocobalamin) 16:57:46 CDT 08/14 CPT-04496 Recombivax HB Injection Suspension 5 MCG/0.5ML 08:37:50 AGENT PRODUCER CPT-67141 Immunization Single Admin 08:37:50 AGENT PRODUCER CPT-J3420 Vitamin B12 1000mcg (Cyanocobalamin) 08:32:16 AGENT PRODUCER 03/11 CPT-15343 Abx/Therapy Injection 08:32:16 AGENT PRODUCER CPT-72282 Chest 2V Frontal and Lat 11:46:38 AGENT PRODUCER CPT-16468 Venipuncture Draw Fee 09:12:45 AGENT PRODUCER CPT-J3420 Vitamin B12 1000mcg (Cyanocobalamin) 08:50:15 AGENT PRODUCER 02/08 CPT-27107 Abx/Therapy Injection 08:50:15 AGENT PRODUCER CPT-Cryo Cryotherapy 10:19:35 AGENT PRODUCER CPT-000 Give Appropriate Flu Vaccine 09:22:16 CDT CPT-J3420 Vitamin B12 1000mcg (Cyanocobalamin) 19:08:57 CDT 01/11 CPT-40082 Abx/Therapy Injection 19:08:57 CDT CPT-J3420 Vitamin B12 1000mcg (Cyanocobalamin) 08:19:08 CDT 12/11 CPT-03474 Abx/Therapy Injection 08:19:08 CDT CPT-J3420 Vitamin B12 1000mcg (Cyanocobalamin) 14:48:00 CDT 11/09 CPT-94490 Abx/Therapy Injection 14:47:59 CDT CPT-J3420 Vitamin B12 1000mcg (Cyanocobalamin) 08:34:04 CDT 10/09 CPT-95323 Abx/Therapy Injection 08:34:04 CDT CPT-J3420 Vitamin B12 1000mcg (Cyanocobalamin) 09:18:52 CDT 09/11 CPT-83491 Abx/Therapy Injection 09:18:52 CDT CPT-J3420 Vitamin B12 1000mcg (Cyanocobalamin) 08:35:44 CDT 09/04 CPT-00074 Abx/Therapy Injection 08:35:44 CDT CPT-55696 Immunization Single Admin 11:07:16 CDT CPT-86939 Hepatitis B adult IM 11:07:16 CDT CPT-J3420 Vitamin B12 1000mcg (Cyanocobalamin) 11:00:49 CDT 08/28 CPT-J1040 Depo Medrol 80 mg (Methyl Prednisolone Acetate) 11:00: 49 CDT CPT-06249 Abx/Therapy Injection 11:00:49 CDT CPT-J1040 Depo Medrol 80 mg (Methyl Prednisolone Acetate) 09:16: 23 CDT CPT-J3420 Vitamin B12 1000mcg (Cyanocobalamin) 08:27:05 CDT 08/20 CPT-89296 Abx/Therapy Injection 08:27:05 CDT CPT-51829 Recombivax HB Injection Suspension 5 MCG/0.5ML 10:00:41 CDT CPT-37847 Administration single or combination vaccine inc oral 10 :00:41 CDT CPT-07393 Sono transvag pelvis non OB uterus ovaries cervix 16:36: 57 CDT CPT-23936 LS spine comp w obliq 09:50:55 AGENT PRODUCER CPT-39581 Abd compl w upright 09:50:55 AGENT PRODUCER CPT-J1100 Decadron 4mg (Dexamethasone) 15:51:24 AGENT PRODUCER CPT-J1030 Depo Medrol 40 mg (Methyl Prednisolone Acetate) 15:51: 24 AGENT PRODUCER CPT-81995 Abx/Therapy Injection 15:51:24 AGENT PRODUCER CPT-J1100 Decadron 4mg (Dexamethasone) 15:26:33 AGENT PRODUCER CPT-J1030 Depo Medrol 40 mg (Methyl Prednisolone Acetate) 15:26: 33 AGENT PRODUCER CPT-44454 Sono retroperitoneal complete kidneys and bladder 17:15: 30 CDT CPT-81619 Abd compl w upright 16:09:25 CDT CPT-J1100 Decadron 8mg (Dexamethasone) 17:07:57 CDT CPT-28386 Abx/Therapy Injection 17:07:57 CDT CPT-J1100 Decadron 8mg (Dexamethasone) 16:55:24 CDT CPT-92413 Chest 2V Frontal and Lat 16:32:44 CDT
--- OUTSIDE RECORDS SUMMARY | 2016-11-05 01:52 | XMS REPORT ---
Author Author [employer] [facility] Medical Staff Organization [facility] [employer] [facility] Address [address] [place] [id number] Phone [phone] Summary purpose TRANSITION OF CARE AUTO GENERATION [...] tests and/or laboratory data RESULTS Radiology Results [id number]:46:00 MRI BRAIN W/WO CONT PACs Image DATE [...] pre and postcontrast MRI brain. MD SOLEDAD Mays/tx03/17/2015 14:49:00 / 03/17/2015 14:52:50 cc:Tata Martínez APRN This document has been electronically Signed by: On: DATE OF EXAM: Mar 17 2015 MRI [...] pre and postcontrast MRI brain. MD SOLEDAD Mays/tx03/17/2015 14:49:00 / 03/17/2015 14:52:50 cc:Tata Martínez APRN This document has been electronically Signed by: ELAN MAHAN MD On: Mar 18 [id number] Result Amended on 2015-03-18 at 08:46:31. Previous status was OK. History of procedures Procedure Code Code Type Description Date Performed Performing Physician [id number] CPT-4 MRI BRAIN STEM W/O & W/DYE 03-17-2015 HUGO MARTÍNEZ [id number] CPT-4 CHRISTINA-BASE MR CONTRAST NOS,1ML 03-17-2015 HUGO MARTÍNEZ Functional status No functional or [...]
--- OUTSIDE RECORDS SUMMARY | 2016-11-05 01:55 | XMS REPORT | Clinical Summary ---
Author Author Admin, E Organization [facility] [employer] Address Unknown Phone Unavailable Allergies, Adverse Reactions, [...] facility Sinus tachycardia 427.89 Resolved Suzan Rajeev LEARNING AND DEVELOPMENT ASSOCIATE Other specified cardiac dysrhythmias Schizoaffective disorder 295.70 [...] Active Ahmet Carbajal MD Generalized anxiety disorder Induction Coordination Engineer well woman exam V72.31 Active Suzan Boo APRN Routine gynecological examination Bronchitis, acute with mild bronchospasm 466.0 Active Suzan Boo APRN Acute bronchitis Fibrocystic breast changes 610.1 Active Suzan Boo APRN Diffuse cystic 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 FLUTICASONE PROPIONATE HFA 74698070361 Active Renzo Thornton DO Active TROPICAMIDE 0.5 % OPHTH SOLN 1 drop PRN eye spasms TROPICAMIDE 51819772198 Active Samantha Tsephan RMA Active RISPERDAL 4 MG ORAL TABS 1 tab at bedtime RISPERIDONE 18315794700 Active Samantha Stephan RMA Active LEVAQUIN 500 MG TABS 1 daily for infection LEVOFLOXACIN 93122586846 Active Suzan Boo APRN Active TESSALON PERLES 100 MG CAPS 1 three times a day as needed for cough BENZONATATE 24634214418 Active Suzan Boo APRN Active ZOFRAN 4 MG TABS 1 po q6hr PRN Nausea ONDANSETRON HCL No Longer Active Suzan Boo APRN Active FLUTICASONE PROPIONATE 50 MCG/ACT SUSP 2 sprays each nostril daily before bed. FLUTICASONE PROPIONATE 97583015984 No Longer Active Suzan Boo APRN Active ASPIRIN 325 MG ORAL TABS 1 tab q.d ASPIRIN 01779888679 No Longer Active Suzan Boo APRN Active HALOPERIDOL 10 MG ORAL TABS 1 tab q.d HALOPERIDOL 69813725638 No Longer Active Suzan Boo APRN Active GUAIFENESIN-CODEINE 100-10 MG/5ML SYRP 5ml every 4 to 6 hours as needed for cough GUAIFENESIN-CODEINE 33953873885 No Longer Active Suzan Boo APRN Active ZITHROMAX Z-EARNEST 250 MG TABS 2 today and then 1 daily for 4 days AZITHROMYCIN 66997260405 No Longer Active Suzan Boo APRN Active PREDNISONE 10 MG TABS 2 daily for 5 days then 1 daily for 5 days PREDNISONE 07873271637 Active Suzan Boo APRN Active CLONAZEPAM 1 MG ORAL TABS 1 twice a day and an additional 1 tablet every other day as needed for pseudoseizures or anxiety CLONAZEPAM 34530515876 Active Ahmet Carbajal MD Active HYDROCODONE-ACETAMINOPHEN 5-325 MG ORAL TABS 1 tab two times a day HYDROCODONE-ACETAMINOPHEN 01138020799 No Longer Active Ahmet Carbajal MD Active LAMICTAL 100 MG ORAL TABS 1 tab 2 times qd. LAMOTRIGINE 04674148453 Active Ahmet Carbajal MD Active PREDNISONE 20 MG TABS 2 daily for 5 days then 1 daily for 5 days PREDNISONE 26922107823 No Longer Active Ahmet Carbajal MD Active FLUTICASONE PROPIONATE 50 MCG/ACT SUSP 1 to 2 sprays each nostril daily for allergies FLUTICASONE PROPIONATE 92709146413 Active Tila Valenzuela Active BENADRYL 25 MG CAP 4 po at bedtime for insomnia DIPHENHYDRAMINE HCL 75557077277 No Longer Active Ahmet Carbajal MD Active ADVAIR DISKUS 250-50 MCG/DOSE INH AEPB 1 puff twice a day for asthma FLUTICASONE-SALMETEROL 03309846731 No Longer Active Ahmet Carbajal MD Active KLONOPIN 1 MG ORAL TABS 1 tab po TID CLONAZEPAM 94647020169 No Longer Active Ahmet Carbajal MD Active ABILIFY MAINTENA 400 MG IM SUSR 400mg injection every 26 days ARIPIPRAZOLE 69852111289 No Longer Active Ahmet Carbajal MD Active TRAMADOL HCL 50 MG TABS 1/2-1 tab TID PRN TRAMADOL HCL 46766452975 No Longer Active Ahmet Carbajal MD Active BACTRIM DS 800-160 MG TABS 1 twice a day SULFAMETHOXAZOLE- TRIMETHOPRIM 00294602666 No Longer Active Ahmet Carbajal MD Active PROAIR HFA 108 (90 BASE) MCG/ACT AERS 2 puffs four times a day as needed 2015 ALBUTEROL SULFATE 89065049344 Active Ahmet Carbajal MD Active EQ NICOTINE 21 MG/24HR TRANS PT24 Apply daily to stop smoking NICOTINE 87911672729 Active Ahmet Carbajal MD Active MONISTAT 7 COMBO PACK WOODROW 100 & 2 MG-% (9GM) VAG KIT 1 applicatorful per vagina q pm x 7 MICONAZOLE NITRATE 22878339244 No Longer Active Ahmet Carbajal MD Active FLAGYL 500 MG TAB 1 tablet by mouth bid METRONIDAZOLE 51507692480 No Longer Active Ahmet Carbajal MD Active OXYCODONE HCL ER 10 MG ORAL T12A 1/2 tab by mouth every 4 hours prn OXYCODONE HCL 62342592182 No Longer Active Ahmet Carbajal MD Active METHYLPREDNISOLONE 4 MG ORAL TABS po daily METHYLPREDNISOLONE 59159000998 No Longer Active Ahmet Carbajal MD Active LEVOFLOXACIN 500 MG ORAL TABS po daily LEVOFLOXACIN 05473427357 No Longer Active Ahmet Carbajal MD Active VIIBRYD 10 MG ORAL TABS Take 1 tablet once a day VILAZODONE HCL 34607261889 No Longer Active Ahmet Carbajal MD Active TOPAMAX 50 MG ORAL TABS 1 tab twice daily TOPIRAMATE 20899442656 No Longer Active Ahmet Carbajal MD Active DICLOFENAC SODIUM 50 MG TBEC 1 tablet by mouth four times daily PRN Pain 2015 DICLOFENAC SODIUM 71301021880 No Longer Active Ahmet Carbajal MD Active ADZENYS XR-ODT 6.3 MG ORAL TBED 1 tab po daily for ADHD AMPHETAMINE 13160727118 No Longer Active Ahmet Crabajal MD Active CHANTIX 1 MG TABS 1 twice a day to help quit smoking VARENICLINE TARTRATE 55352106525 No Longer Active Dipika Burgos MD Active CHANTIX STARTING MONTH EARNEST 0.5 MG X 11 & 1 MG X 42 TABS take as directed 2015 VARENICLINE TARTRATE 76055527636 No Longer Active Dipika Burgos MD Active TESSALON PERLES 100 MG CAP 1 to 2 tablets by mouth 3 times daily as needed for cough BENZONATATE 15882778345 No Longer Active Luigi Martínez APRN Active IMITREX 50 MG ORAL TABS 0.5 po x 1 PRN Headache. May repeat dose x 1 in 2 hours if needed SUMATRIPTAN SUCCINATE 05183750440 Active Ahmet Carbajal MD Active HYDROCODONE-ACETAMINOPHEN 5-325 MG TABS 1 to 2 four times a day as needed for pain use until can be seen by specialist HYDROCODONE- ACETAMINOPHEN 62195130706 No Longer Active Vishal Hui MD Active PROAIR HFA 108 (90 BASE) MCG/ACT AERS 2 puffs four times a day as needed 2015 ALBUTEROL SULFATE 12139887321 No Longer Active Vishal Hui MD Active PREDNISONE 20 MG TABS 2 daily for 5 days then 1 daily for 5 days PREDNISONE 72880936632 No Longer Active Vishal Hui MD Active ZITHROMAX Z-EARNEST 250 MG TABS 2 today and then 1 daily for 4 days AZITHROMYCIN 92748895573 No Longer Active Vishal Hui MD Active DICLOFENAC POTASSIUM TABS Take 1 tablet twice a day (pt. is not sure of the dose.) DICLOFENAC POTASSIUM TABS 55766248419 No Longer Active Vishal Hui MD Active VERAPAMIL HCL ER 120 MG ORAL CR-TABS Take 1 tablet by mouth twice a day. VERAPAMIL HCL 87033221502 Active Vishal Hui MD Active FLAGYL 500 MG TAB 1 tablet by mouth bid METRONIDAZOLE 73674967786 No Longer Active Vishal Hui MD Active VALIUM 5 MG TAB Take 1-2 tablets daily DIAZEPAM 27305928216 No Longer Active Fabiola Johnson APRN Active METOPROLOL TARTRATE 25 MG ORAL TABS 1/2 tablet twice daily for heart rate and blood pressure METOPROLOL TARTRATE 02799549223 No Longer Active Fabiola Johnson APRN Active MIRALAX ORAL POWD 17GMS DAILY IN WATER POLYETHYLENE GLYCOL 3350 61975615663 Active TAMARA Casey Active MIRALAX PACK 1 po qd PRN Constipation POLYETHYLENE GLYCOL 3350 32500567327 No Longer Active Ahmet Carbajal MD Active MINIPRESS 2 MG CAPS 4 cap po at night PRAZOSIN HCL 64238372636 No Longer Active Ahmet Carbajal MD Active PIROXICAM 20 MG CAPS 1 cap po qd PRN Pain PIROXICAM 37725723240 No Longer Active Ahmet Carbajal MD Active TRAMADOL HCL 50 MG TABS 1-2 po TID PRN Pain TRAMADOL HCL 19676059589 No Longer Active Ahmet Carbajal MD Active METOPROLOL TARTRATE 50 MG TAB 1 po bid METOPROLOL TARTRATE 78086050464 No Longer Active Ahmet Carbajal MD Active ABILIFY 15 MG ORAL TABS 1 tab daily ARIPIPRAZOLE 84572635745 No Longer Active Ahmet Carbajal MD Active PROZAC 20 MG ORAL CAPS 1 tab daily FLUOXETINE HCL 46504362810 No Longer Active Ahmet Carbajal MD Active AMBIEN 5 MG ORAL TABS 1 tab at bedtime ZOLPIDEM TARTRATE 77827982510 No Longer Active Ahmet Carbajal MD Active PREDNISONE 20 MG TAB 2 tabs daily for 4 days, 1 tab daily for 4 days, 1/2 tab daily for 4 days PREDNISONE 93860066570 No Longer Active Ahmet Carbajal MD Active KEFLEX 500 MG CAP 1 po TID x 10 days CEPHALEXIN 77952352643 No Longer Active Vishal Hui MD Active SAPHRIS 5 MG SUBL 1 po bid ASENAPINE MALEATE 35510961936 No Longer Active Jillina Mauricio LEARNING AND DEVELOPMENT ASSOCIATE Active LATUDA 80 MG TABS Take one by mouth daily LURASIDONE HCL 28064772899 No Longer Active Jillina Frazell LEARNING AND DEVELOPMENT ASSOCIATE Active AMLODIPINE BESYLATE 5 MG TABS 1 tablet by mouth daily AMLODIPINE BESYLATE 12297995796 No Longer Active Jillina Fradwightl LEARNING AND DEVELOPMENT ASSOCIATE Active AMITRIPTYLINE HCL 100 MG TAB one at hs AMITRIPTYLINE HCL 14397993497 No Longer Active Vishal Hui MD Active TRAZODONE HCL 100 MG TAB take 1 at bedtime TRAZODONE HCL 57780166478 No Longer Active Vishal Hui MD Active VYVANSE 40 MG CAPS 1 daily, LISDEXAMFETAMINE DIMESYLATE 37433695629 No Longer Active Vishal Hui MD Active IBUPROFEN 600 MG TAB 1 po TID PRN IBUPROFEN 65994469745 No Longer Active Vishal Hui MD Active PROZAC 20 MG CAP Take one by mouth daily FLUOXETINE HCL 77982421876 No Longer Active Vishal Hui MD Active BACTRIM DS 800-160 MG TABS 1 pill by mouth twice daily SULFAMETHOXAZOLE-TRIMETHOPRIM 03552119224 No Longer Active Sahara Rodriguez MD PhD Active DIFLUCAN 150 MG TAB 1 tablet by mouth daily FLUCONAZOLE 09498629869 No Longer Active Vishal Hui MD Active TIZANIDINE HCL 4 MG TABS 1 po q6hr PRN Muscle Spasm/Back Pain TIZANIDINE HCL 79363505623 Active Vishal Hui MD Active CLINDAMYCIN HCL 150 MG CAPS 1 four times a day CLINDAMYCIN HCL 04140770803 No Longer Active Neeraj Collins MD Active KEFLEX 500 MG ORAL CAPS 1 cap QID by mouth CEPHALEXIN 49091603288 No Longer Active Neeraj Collins MD Active DIFLUCAN 150 MG TABS 1 pill every other day x 2 doses FLUCONAZOLE 23033508084 No Longer Active Sahara Rodriguez MD PhD Active MELATONIN 3 MG CAPS 2 po q hs MELATONIN 21038150670 No Longer Active Sahaar Rodriguez MD PhD Active MULTIVITAMINS CAPS Take one by mouth daily MULTIPLE VITAMIN 74932039854 No Longer Active Sahara Rodriguez MD PhD Active BACTRIM DS 800-160 MG TAB 1 tab by mouth twice daily TRIMETHOPRIM-SULFAMETHOXAZOLE 48542274384 No Longer Active Sahara Rodriguez MD PhD Active [facility] PROBIOTIC ORAL CHEW 2 daily po PROBIOTIC PRODUCT 79964185405 No Longer Active Sahara Rodriguez MD PhD Active BACTRIM DS 800-160 MG TABS 1 po BID x 7 days SULFAMETHOXAZOLE-TRIMETHOPRIM 23240171425 No Longer Active Vishal Hui MD Active CHANTIX STARTING MONTH EARNEST 0.5 MG X 11 & 1 MG X 42 TABS 0.5mg daily for 3 days , then 0.5mg BID for 4 days, then 1mg BID VARENICLINE TARTRATE 70701887719 No Longer Active Lisette Scarrow, RMA Active VERAPAMIL HCL CR 120 MG TAB CR 1 po bid VERAPAMIL HCL 68112129710 No Longer Active Vishal Hui MD Active METOPROLOL SUCCINATE 50 MG TB24 1 tablet by mouth daily METOPROLOL SUCCINATE 53309289777 No Longer Active Vishal Hui MD Active SAPHRIS 10 MG SUBL 1 tab po bid ASENAPINE MALEATE 62632242629 No Longer Active Vishal Hui MD Active LISINOPRIL 20 MG TABS 1 tab po qd LISINOPRIL 84557594940 No Longer Active Vishal Hui MD Active LATUDA 20 MG TABS Take one by mouth daily LURASIDONE HCL 74887497128 No Longer Active Vishal Hui MD Active TRAZODONE HCL 50 MG TABS 1/2 tab po qd prn for anxiety TRAZODONE HCL 49269369551 No Longer Active Vishal Hui MD Active OMEPRAZOLE 20 MG TBEC 1 po q a.m. 30min prior to first food intake OMEPRAZOLE 40476941877 Active Bertha Kirby RMA Active RANITIDINE HCL 150 MG CAPS 1 twice a day RANITIDINE HCL 03442777578 Active Luigi Martínez APRN Active LINZESS 290 MCG CAPS Take one by mouth daily LINACLOTIDE 55844529150 No Longer Active Vishal Hui MD Active SAPHRIS 5 MG SUBL 1 tab po qd ASENAPINE MALEATE 82334836964 No Longer Active Vishal Hui MD Active ZALEPLON 10 MG CAPS 1 cap po every other night ZALEPLON 44169680173 No Longer Active Vishal Hui MD Active LYRICA 50 MG CAPS 1 tab po TID PREGABALIN 30711480221 No Longer Active Vishal Hui MD Active LORATADINE 10 MG TABS 1 tab po qd LORATADINE 00461112170 No Longer Active Vishal Hui MD Active VERAPAMIL HCL ER 180 MG CR-TABS 1 tab po bid VERAPAMIL HCL 47145900680 No Longer Active Vishal Hui MD Active MIRALAX POWD 1 capfull once daily POLYETHYLENE GLYCOL 3350 34688587678 No Longer Active Vishal Hui MD Active PREDNISONE 20 MG TABS 1 tab po qd PREDNISONE 92464230084 No Longer Active Renzo Thornton DO Active LEVOFLOXACIN 500 MG TABS 1 tab po qd LEVOFLOXACIN 68511613077 No Longer Active Renzo Thornton DO Active BUSPIRONE HCL 15 MG TABS 1 tab po TID BUSPIRONE HCL 00578738054 No Longer Active Renzo Thornton DO Active BENZTROPINE MESYLATE 1 MG TABS 1 tab po qd BENZTROPINE MESYLATE 37921727142 No Longer Active Renzo Thornton DO Active ATENOLOL 25 MG TABS 1 tab po qd ATENOLOL 73428654060 No Longer Active Renzo Thornton DO Active ESCITALOPRAM OXALATE 20 MG TABS 1 tab po qd ESCITALOPRAM OXALATE 87542411004 No Longer Active Renzo Thornton DO Active ADVAIR DISKUS 250-50 MCG/DOSE AEPB 1 puff BID FLUTICASONE-SALMETEROL 55937347122 No Longer Active Renzo Thornton DO Active PREDNISONE 20 MG TAB 2 tabs daily for 3 days, 1 tab daily for 3 days, 1/2 tab daily for 2 days PREDNISONE 34024363125 No Longer Active Vishal Hui MD Active CEFDINIR 300 MG CAPS by mouth twice a day CEFDINIR 36352886802 No Longer Active Vishal Hui MD Active LANSOPRAZOLE 30 MG CPDR 1 cap po qd LANSOPRAZOLE 87738219349 No Longer Active Vishal Hui MD Active BACLOFEN 20 MG TABS 1 tab po tid BACLOFEN 25219896369 No Longer Active Vishal Hui MD Active ADVAIR DISKUS 250-50 MCG/DOSE AEPB 1 puff BID ADVAIR DISKUS 250-50 MCG/DOSE AEPB FLUTICASONE-SALMETEROL Inactive ESCITALOPRAM OXALATE 20 MG TABS 1 tab po qd ESCITALOPRAM OXALATE 20 MG TABS 839112 ESCITALOPRAM OXALATE Inactive ATENOLOL 25 MG TABS 1 tab po qd ATENOLOL 25 MG TABS 532863 ATENOLOL Inactive BENZTROPINE MESYLATE 1 MG TABS 1 tab po qd BENZTROPINE MESYLATE 1 MG TABS 757019 BENZTROPINE MESYLATE Inactive BUSPIRONE HCL 15 MG TABS 1 tab po TID BUSPIRONE HCL 15 MG TABS 130549 BUSPIRONE HCL Inactive LEVOFLOXACIN 500 MG TABS 1 tab po qd LEVOFLOXACIN 500 MG TABS 181049 LEVOFLOXACIN Inactive PREDNISONE 20 MG TABS 1 tab po qd PREDNISONE 20 MG TABS 104521 PREDNISONE Inactive MIRALAX POWD 1 capfull once daily MIRALAX POWD 530054 POLYETHYLENE GLYCOL 3350 Inactive VERAPAMIL HCL ER 180 MG CR-TABS 1 tab po bid VERAPAMIL HCL ER 180 MG CR-TABS VERAPAMIL HCL Inactive LORATADINE 10 MG TABS 1 tab po qd LORATADINE 10 MG TABS 568937 LORATADINE Inactive LYRICA 50 MG CAPS 1 tab po TID LYRICA 50 MG CAPS PREGABALIN Inactive ZALEPLON 10 MG CAPS 1 cap po every other night ZALEPLON 10 MG CAPS 993754 ZALEPLON Inactive SAPHRIS 5 MG SUBL 1 tab po qd SAPHRIS 5 MG SUBL ASENAPINE MALEATE Inactive TRAZODONE HCL 50 MG TABS 1/2 tab po qd prn for anxiety TRAZODONE HCL 50 MG TABS 491113 TRAZODONE HCL Inactive LATUDA 20 MG TABS Take one by mouth daily LATUDA 20 MG TABS LURASIDONE HCL Inactive LISINOPRIL 20 MG TABS 1 tab po qd LISINOPRIL 20 MG TABS 087380 LISINOPRIL Inactive SAPHRIS 10 MG SUBL 1 [...] twice daily BACTRIM DS 800-160 MG TAB 772643 TRIMETHOPRIM-SULFAMETHOXAZOLE Inactive MULTIVITAMINS CAPS Take one by mouth daily MULTIVITAMINS CAPS MULTIPLE VITAMIN Inactive MELATONIN 3 MG CAPS 2 po q hs MELATONIN 3 MG CAPS 121903 MELATONIN Inactive KEFLEX 500 MG ORAL CAPS 1 cap QID by mouth KEFLEX 500 MG ORAL CAPS 515526 CEPHALEXIN Inactive CLINDAMYCIN HCL 150 MG CAPS 1 four times a day CLINDAMYCIN HCL 150 MG CAPS 649350 CLINDAMYCIN HCL Inactive DIFLUCAN 150 MG TAB 1 tablet by mouth daily DIFLUCAN 150 MG TAB 997783 FLUCONAZOLE Inactive PROZAC 20 MG CAP Take one by mouth daily PROZAC 20 MG CAP 889223 FLUOXETINE HCL Inactive IBUPROFEN 600 MG TAB 1 po TID PRN IBUPROFEN 600 MG TAB 508480 IBUPROFEN Inactive VYVANSE 40 MG CAPS 1 daily, VYVANSE 40 MG CAPS LISDEXAMFETAMINE DIMESYLATE Inactive TRAZODONE HCL 100 MG TAB take 1 at bedtime TRAZODONE HCL 100 MG TAB 166970 TRAZODONE HCL Inactive AMITRIPTYLINE HCL 100 MG TAB one at hs AMITRIPTYLINE HCL 100 MG TAB 981573 AMITRIPTYLINE HCL Inactive AMLODIPINE BESYLATE 5 MG TABS 1 tablet by mouth daily AMLODIPINE BESYLATE 5 MG TABS 749119 AMLODIPINE BESYLATE Inactive LATUDA 80 MG TABS Take one by mouth daily LATUDA 80 MG TABS LURASIDONE HCL Inactive SAPHRIS 5 MG SUBL 1 po bid SAPHRIS 5 MG SUBL ASENAPINE MALEATE Inactive PREDNISONE 20 MG TAB 2 tabs daily for 4 days, 1 tab daily for 4 days, 1/2 tab daily for 4 days PREDNISONE 20 MG TAB 663137 PREDNISONE Inactive AMBIEN 5 MG ORAL TABS 1 tab at bedtime AMBIEN 5 MG ORAL TABS 772095 ZOLPIDEM TARTRATE Inactive PROZAC 20 MG ORAL CAPS 1 tab daily PROZAC 20 MG ORAL CAPS 375297 FLUOXETINE HCL Inactive ABILIFY 15 MG ORAL TABS 1 tab daily ABILIFY 15 MG ORAL TABS 549016 ARIPIPRAZOLE Inactive METOPROLOL TARTRATE 50 MG TAB 1 po bid METOPROLOL TARTRATE 50 MG TAB 249026 METOPROLOL TARTRATE Inactive TRAMADOL HCL 50 MG TABS 1-2 po TID PRN Pain TRAMADOL HCL 50 MG TABS 812256 TRAMADOL HCL Inactive PIROXICAM 20 MG CAPS 1 cap po qd PRN Pain PIROXICAM 20 MG CAPS 873572 PIROXICAM Inactive MINIPRESS 2 MG CAPS 4 cap po at night MINIPRESS 2 MG CAPS 028734 PRAZOSIN HCL Inactive MIRALAX PACK 1 po qd PRN Constipation MIRALAX PACK 931368 POLYETHYLENE GLYCOL 3350 Inactive METOPROLOL TARTRATE 25 MG ORAL TABS 1/2 tablet twice daily for heart rate and blood pressure METOPROLOL TARTRATE 25 MG ORAL TABS 829708 METOPROLOL TARTRATE Inactive VALIUM 5 MG TAB Take 1-2 tablets daily VALIUM 5 MG TAB 057944 DIAZEPAM Inactive FLAGYL 500 MG TAB 1 tablet by mouth bid FLAGYL 500 MG TAB 648944 METRONIDAZOLE Inactive DICLOFENAC POTASSIUM TABS Take 1 tablet twice a day (pt. is not sure of the dose.) DICLOFENAC POTASSIUM TABS DICLOFENAC POTASSIUM TABS Inactive ZITHROMAX Z-EARNEST 250 MG TABS 2 today and then 1 daily for 4 days ZITHROMAX Z-EARNEST 250 MG TABS 1808567 AZITHROMYCIN Inactive PREDNISONE 20 MG TABS 2 daily for 5 days then 1 daily for 5 days PREDNISONE 20 MG TABS 728852 PREDNISONE Inactive PROAIR HFA 108 (90 BASE) MCG/ACT AERS 2 puffs four times a day as needed 2015 PROAIR HFA 108 (90 BASE) MCG/ACT AERS ALBUTEROL SULFATE Inactive HYDROCODONE-ACETAMINOPHEN 5-325 MG TABS 1 to 2 four times a day as needed for pain use until can be seen by specialist HYDROCODONE- ACETAMINOPHEN 5-325 MG TABS 313706 HYDROCODONE-ACETAMINOPHEN Inactive TESSALON PERLES 100 MG CAP 1 to 2 tablets by mouth 3 times daily as needed for cough TESSALON PERLES 100 MG CAP 701155 BENZONATATE Inactive CHANTIX STARTING MONTH EARNEST 0.5 [...] Pain 2015 DICLOFENAC SODIUM 50 MG TBEC 203284 DICLOFENAC SODIUM Inactive TOPAMAX 50 MG ORAL TABS 1 tab twice daily TOPAMAX 50 MG ORAL TABS 034988 TOPIRAMATE Inactive VIIBRYD 10 MG ORAL TABS Take 1 tablet once a day VIIBRYD 10 MG ORAL TABS VILAZODONE HCL Inactive LEVOFLOXACIN 500 MG ORAL TABS po daily LEVOFLOXACIN 500 MG ORAL TABS 463012 LEVOFLOXACIN Inactive METHYLPREDNISOLONE 4 MG ORAL TABS po daily METHYLPREDNISOLONE 4 MG ORAL TABS 969741 METHYLPREDNISOLONE Inactive OXYCODONE HCL ER 10 MG ORAL T12A 1/2 tab by mouth every 4 hours prn OXYCODONE HCL ER 10 MG ORAL T12A OXYCODONE HCL Inactive FLAGYL 500 MG TAB 1 tablet by mouth bid FLAGYL 500 MG TAB 017439 METRONIDAZOLE Inactive MONISTAT 7 COMBO PACK WOODROW 100 & 2 MG-% (9GM) VAG KIT 1 applicatorful per vagina q pm x 7 MONISTAT 7 COMBO PACK WOODROW 100 & 2 MG-% (9GM) VAG KIT MICONAZOLE NITRATE Inactive BACTRIM DS 800-160 MG TABS 1 twice a day BACTRIM DS 800-160 MG TABS 385521 SULFAMETHOXAZOLE-TRIMETHOPRIM Inactive TRAMADOL HCL 50 MG TABS 1/2-1 tab TID PRN TRAMADOL HCL 50 MG TABS 351036 TRAMADOL HCL Inactive ABILIFY MAINTENA 400 MG IM SUSR 400mg injection every 26 days ABILIFY MAINTENA 400 MG IM SUSR ARIPIPRAZOLE Inactive KLONOPIN 1 MG ORAL TABS 1 tab po TID KLONOPIN 1 MG ORAL TABS 452113 CLONAZEPAM Inactive ADVAIR DISKUS 250-50 MCG/DOSE INH AEPB 1 puff twice a day for asthma ADVAIR DISKUS 250-50 MCG/DOSE INH AEPB FLUTICASONE- SALMETEROL Inactive BENADRYL 25 MG CAP 4 po at bedtime for insomnia BENADRYL 25 MG CAP DIPHENHYDRAMINE HCL Inactive PREDNISONE 20 MG TABS 2 daily for 5 days then 1 daily for 5 days PREDNISONE 20 MG TABS 860864 PREDNISONE Inactive HYDROCODONE-ACETAMINOPHEN 5-325 MG ORAL TABS 1 tab two times a day HYDROCODONE-ACETAMINOPHEN 5-325 MG ORAL TABS 118062 HYDROCODONE-ACETAMINOPHEN Inactive ZITHROMAX Z-EARNEST 250 MG TABS 2 today and then 1 daily for 4 days ZITHROMAX Z-EARNEST 250 MG TABS 0881494 AZITHROMYCIN Inactive GUAIFENESIN-CODEINE 100-10 MG/5ML SYRP 5ml every 4 to 6 hours as needed for cough GUAIFENESIN-CODEINE 100-10 MG/5ML SYRP 940816 GUAIFENESIN-CODEINE Inactive HALOPERIDOL 10 MG ORAL TABS 1 tab q.d HALOPERIDOL 10 MG ORAL TABS 922998 HALOPERIDOL Inactive ASPIRIN 325 MG ORAL TABS 1 tab q.d ASPIRIN 325 MG ORAL TABS 260541 ASPIRIN Inactive FLUTICASONE PROPIONATE 50 MCG/ACT SUSP 2 sprays each nostril daily before bed. FLUTICASONE PROPIONATE 50 MCG/ACT SUSP 5991908 FLUTICASONE PROPIONATE Inactive ZOFRAN 4 MG TABS 1 po q6hr PRN Nausea ZOFRAN 4 MG TABS 815943 ONDANSETRON HCL Inactive CEFDINIR 300 MG CAPS by mouth twice a day CEFDINIR 300 MG CAPS 349140 CEFDINIR Inactive PREDNISONE 20 MG TAB 2 tabs daily for 3 days, 1 tab daily for 3 days, 1/2 tab daily for 2 days PREDNISONE 20 MG TAB 732859 PREDNISONE Inactive BACTRIM DS 800-160 MG TABS 1 po BID x 7 days BACTRIM DS 800-160 MG TABS 19820521 SULFAMETHOXAZOLE-TRIMETHOPRIM Inactive DIFLUCAN 150 MG TABS 1 pill every other day x 2 doses DIFLUCAN 150 MG TABS 510923 FLUCONAZOLE Inactive BACTRIM DS 800-160 MG TABS 1 pill by mouth twice daily BACTRIM DS 800-160 MG TABS 19820521 SULFAMETHOXAZOLE-TRIMETHOPRIM Inactive KEFLEX 500 MG CAP 1 po TID x 10 days KEFLEX 500 MG CAP 278252 CEPHALEXIN Inactive Advance Directives Directive Description Start [...] % 11.0-15.0 platelet count 443 THOUSAND/UL 10*3/mm3 404-020 9198/03/01 mean platelet volume 8.2 fL 7.5-12.5 Lab [...] 369 10^3/MM^3 10*3/mm3 142-424 Lab Report: Chlamydia/GC APTIMA/[id number] - Lab chlamydia DNA probe NOT DETECTED NOT DETECTED Lab Report: Chlamydia/GC APTIMA/[id number] - Microbiology Neisseria gonorrhoeae DNA probe NOT DETECTED NOT DETECTED Lab Report: Chlamydia/GC APTIMA/12254, Urinalysis, Complete, with Reflex ... - Lab chlamydia DNA probe NOT DETECTED NOT DETECTED Lab Report: Chlamydia/GC APTIMA/[id number], Urinalysis, Complete, with Reflex ... - Microbiology Neisseria gonorrhoeae DNA probe NOT DETECTED NOT DETECTED Lab Report: Chlamydia/GC APTIMA/00801, Urinalysis, Complete, with Reflex ... - Urinalysis microalbumin/total urine volume 2 mg/L Units converted. See lab report for original value. microalbumin/creatinine ratio, urine 9 MCG/MG CREAT mg/L <30 Lab Report: Comp. Metabolic Panel - Chemistry sodium, serum 142 mmol/L 917-708 8213/06/08 carbon dioxide, venous blood 27.6 mmol/L 21.0-32.0 potassium, serum 4.0 mmol/L 3.5-5.2 chloride, serum 105 mmol/L 98-107 blood glucose 95 mg/dL 65-110 urea nitrogen, blood 8 mg/dL 7-18 creatinine, serum 0.75 mg/dL 0.55-1.30 alanine aminotransferase (SGPT), serum 49 U/L - aspartate aminotransferase (SGOT), serum 28 U/L 15-37 calcium, serum 9.4 mg/dL 8.5-10.1 bilirubin, serum, total 0.30 mg/dL 0.00-1.00 sodium, serum 140 mmol/L 347-093 0185/08/08 carbon dioxide, venous blood 33.7 mmol/L 21.0-32.0 [...] mg/dL Encounters Code Encounter Date Provider Facility [id number] Level 3 Est. Patient 11:04:38 CDT Renzo W Norberto [facility] CPT-64202 Level 3 Est. Patient 11:15:58 [employer] O[employer]ATOR Renzo Thornton [facility] CPT-96742 Level 3 Est. Patient 15:28:23 [employer] AND [employer]NEAL OPERATOR Suzan Boo [facility] CPT-69115 Level 4 Est. Patient 10:20:54 [employer] OPERATOR Suzan Boo [facility] CPT-98767 Level 3 Est. Patient 11:47:37 [employer] AND [employer]NEAL OPERATOR Ahmet Carbajal MD [facility] CPT-37081 Level 3 Est. Patient 10:40:11 SCARF AND ANNEAL OPERATOR Ahmet Carbajal MD [facility] CPT-81971 Level 3 Est. Patient 15:07:06 SCARF AND ANNEAL OPERATOR Neeraj Collins MD [facility] CPT-68333 Level 4 Est. Patient 14:45:00 SCARF AND ANNEAL OPERATOR Ahmet Carbajal MD [facility] CPT-91574 Level 3 Est. Patient 13:59:59 CDT Luigi Martínez [facility] CPT-58468 Level 3 Est. Patient 18:18:53 CDT Neeraj Collins MD [facility] CPT-49315 Level 3 Est. Patient 15:50:44 CDT Vishal Hui MD [facility] CPT-95597 Level 3 Est. Patient 11:36:17 CDT Ahmet Carbajal MD [facility] CPT-71114 Level 3 Est. Patient 13:29:16 CDT Vishal Hui MD [facility] CPT-32414 Level 3 Est. Patient 14:27:52 CDT Neeraj Collins MD [facility]-49218 Level 3 Est. Patient 08:56:03 CDT Luigi Martínez [facility] CPT-32153 Level 4 Est. Patient 12:11:48 CDT Fabiola Johnson [facility] CPT-03150 Level 3 New Patient 16:53:37 CDT Albert Caldera MD [facility] CPT-89655 Level 3 Est. Patient 11:25:49 CDT Renzo Thornton [facility] CPT-30349 Level 3 Est. Patient 15:22:01 CDT Ahmet Carbajal MD [facility] CPT-76695 Level 4 Est. Patient 09:00:51 SCARF AND ANNEAL OPERATOR Vishal Hui MD [facility] CPT-49791 Level 3 Est. Patient 11:37:33 SCARF AND ANNEAL OPERATOR Vishal Hui MD [facility] CPT-53707 Level 3 Est. Patient 08:41:09 SCARF AND ANNEAL OPERATOR Vishal Hui MD [facility] CPT-92563 Level 4 Est. Patient 10:19:35 SCARF AND ANNEAL OPERATOR Vishal Hui MD [facility] CPT-62584 Level 3 Est. Patient 13:35:45 CDT Vishal Hui MD [facility] CPT-97115 Level 4 Est. Patient 10:08:37 CDT Vishal Hui MD [facility] CPT-07880 Level 3 Est. Patient 11:22:10 CDT Vishal Hui MD [facility] CPT-02722 Level 3 Est. Patient 11:03:32 CDT Sahara Rodriguez MD PhD [facility] CPT-87546 Level 3 Est. Patient 09:41:35 CDT Vishal Hui MD [facility] CPT-90234 Level 3 Est. Patient 12:00:41 CDT Neeraj Collins MD [facility] CPT-21252 Level 3 Est. Patient 09:16:24 CDT Vishal Hui MD [facility] CPT-02648 Level 4 Est. Patient 13:59:09 CDT Neeraj Collins MD [facility] CPT-90831 Level 3 Est. Patient 15:19:43 CDT Renzo W Norberto [facility] CPT-02746 Level 3 Est. Patient 18:10:26 CDT Sahara Rodriguez MD PhD [facility] CPT-68519 Level 3 Est. Patient 14:49:50 CDT Vishal Hui MD [facility] CPT-96965 Level 4 Est. Patient 18:41:46 CDT Neeraj Collins MD [facility] CPT-60915 Level 4 Est. Patient 09:18:38 SCARF AND ANNEAL OPERATOR Vishal Hui MD [facility] CPT-70784 Level 3 Est. Patient 14:43:55 SCARF AND ANNEAL OPERATOR Vishal Hui MD [facility] CPT-62144 Level 3 Est. Patient 15:26:33 SCARF AND ANNEAL OPERATOR Sahara Rodriguez MD PhD [facility] CPT-03877 Level 3 Est. Patient 10:32:14 SCARF AND ANNEAL OPERATOR Vishal Hui MD [facility] CPT-75088 Level 3 Est. Patient 15:12:52 SCARF AND ANNEAL OPERATOR Vishal Hui MD [facility] CPT-95721 Level 4 Est. Patient 09:19:27 CDT Vishal Hui MD [facility] CPT-06669 Level 3 Est. Patient 15:53:00 CDT Renzo Thornton [facility] CPT-69003 Level 3 Est. Patient 15:50:30 CDT Renzo Thornton [facility] CPT-31726 Level 3 Est. Patient 16:55:24 CDT Vishal Hui MD [facility] Procedures Code Procedure Name Date Entry Date Standard Description CPT-85159 Smoking Cessation counseling 11:15:58 SCARF AND ANNEAL OPERATOR CPT-G0439 [facility] Annual Wellness Exam 09:30:58 SCARF AND ANNEAL OPERATOR CPT-88373 TSH - LAB USE ONLY 08:50:26 SCARF AND ANNEAL OPERATOR CPT-51055 CBC - LAB USE ONLY 08:50:26 SCARF AND ANNEAL OPERATOR CPT-39542 Venipuncture Draw Fee 08:50:26 SCARF AND ANNEAL OPERATOR CPT-85961 Abx/Therapy Injection 17:34:30 SCARF AND ANNEAL OPERATOR CPT-38084 Nexplanon Removal with Reinsertion 14:09:32 CDT CPT-J7307 Nexplanon (Implant) 14:09:32 CDT CPT-OV Office Visit 14:09:32 CDT CPT-05510 UA w micro - LAB USE ONLY 16:21:13 CDT CPT-52661 Wet Mount - LAB USE ONLY 16:21:13 CDT CPT-50693 First Vx - Ix admin for Medicare patients 14:37:47 CDT CPT-44911 Fluzone Preservative Free Intramuscular Suspension 14:37 :47 CDT CPT-99139 Abx/Therapy Injection 13:54:22 CDT CPT-35080 Abx/Therapy Injection 08:47:09 CDT CPT-07841 Abx/Therapy Injection 13:29:56 CDT CPT-82698 Abx/Therapy Injection 08:36:16 CDT CPT-67847 Wet Mount - LAB USE ONLY 17:44:58 CDT CPT-10577 UA w micro - LAB USE ONLY 17:44:58 CDT CPT-60242 CMP - LAB USE ONLY 17:44:58 CDT CPT-70027 Venipuncture Draw Fee 17:44:58 CDT CPT-63922 Cervical Min 4V - XRAY USE ONLY 09:01:40 CDT CPT-80278 Chest 2V Frontal and Lat - XRAY USE ONLY 11:06:31 CDT CPT-59995 EKG Trac and Interp - XRAY USE ONLY 11:31:43 CDT 08/26 CPT-J3420 Vitamin B12 1000mcg (Cyanocobalamin) 08:10:26 SCARF AND ANNEAL OPERATOR 04/12 CPT-64494 Abx/Therapy Injection 08:10:26 SCARF AND ANNEAL OPERATOR CPT-G0438 Initial Annual Wellness Exam 19:01:01 SCARF AND ANNEAL OPERATOR CPT-J3420 Vitamin B12 1000mcg (Cyanocobalamin) 16:57:46 CDT 08/14 CPT-76885 Recombivax HB Injection Suspension 5 MCG/0.5ML 08:37:50 SCARF AND ANNEAL OPERATOR CPT-18347 Immunization Single Admin 08:37:50 SCARF AND ANNEAL OPERATOR CPT-J3420 Vitamin B12 1000mcg (Cyanocobalamin) 08:32:16 SCARF AND ANNEAL OPERATOR 03/11 CPT-95943 Abx/Therapy Injection 08:32:16 SCARF AND ANNEAL OPERATOR CPT-38760 Chest 2V Frontal and Lat 11:46:38 SCARF AND ANNEAL OPERATOR CPT-30657 Venipuncture Draw Fee 09:12:45 SCARF AND ANNEAL OPERATOR CPT-J3420 Vitamin B12 1000mcg (Cyanocobalamin) 08:50:15 SCARF AND ANNEAL OPERATOR 02/08 CPT-61591 Abx/Therapy Injection 08:50:15 SCARF AND ANNEAL OPERATOR CPT-Cryo Cryotherapy 10:19:35 SCARF AND ANNEAL OPERATOR CPT-000 Give Appropriate Flu Vaccine 09:22:16 CDT CPT-J3420 Vitamin B12 1000mcg (Cyanocobalamin) 19:08:57 CDT 01/11 CPT-00249 Abx/Therapy Injection 19:08:57 CDT CPT-J3420 Vitamin B12 1000mcg (Cyanocobalamin) 08:19:08 CDT 12/11 CPT-83261 Abx/Therapy Injection 08:19:08 CDT CPT-J3420 Vitamin B12 1000mcg (Cyanocobalamin) 14:48:00 CDT 11/09 CPT-56581 Abx/Therapy Injection 14:47:59 CDT CPT-J3420 Vitamin B12 1000mcg (Cyanocobalamin) 08:34:04 CDT 10/09 CPT-79504 Abx/Therapy Injection 08:34:04 CDT CPT-J3420 Vitamin B12 1000mcg (Cyanocobalamin) 09:18:52 CDT 09/11 CPT-79157 Abx/Therapy Injection 09:18:52 CDT CPT-J3420 Vitamin B12 1000mcg (Cyanocobalamin) 08:35:44 CDT 09/04 CPT-82998 Abx/Therapy Injection 08:35:44 CDT CPT-85048 Immunization Single Admin 11:07:16 CDT CPT-45057 Hepatitis B adult IM 11:07:16 CDT CPT-J3420 Vitamin B12 1000mcg (Cyanocobalamin) 11:00:49 CDT 08/28 CPT-J1040 Depo Medrol 80 mg (Methyl Prednisolone Acetate) 11:00: 49 CDT CPT-56417 Abx/Therapy Injection 11:00:49 CDT CPT-J1040 Depo Medrol 80 mg (Methyl Prednisolone Acetate) 09:16: 23 CDT CPT-J3420 Vitamin B12 1000mcg (Cyanocobalamin) 08:27:05 CDT 08/20 CPT-80923 Abx/Therapy Injection 08:27:05 CDT CPT-19556 Recombivax HB Injection Suspension 5 MCG/0.5ML 10:00:41 CDT CPT-62767 Administration single or combination vaccine inc oral 10 :00:41 CDT CPT-96816 Sono transvag pelvis non OB uterus ovaries cervix 16:36: 57 CDT CPT-08643 LS spine comp w obliq 09:50:55 SCARF AND ANNEAL OPERATOR CPT-54048 Abd compl w upright 09:50:55 SCARF AND ANNEAL OPERATOR CPT-J1100 Decadron 4mg (Dexamethasone) 15:51:24 SCARF AND ANNEAL OPERATOR CPT-J1030 Depo Medrol 40 mg (Methyl Prednisolone Acetate) 15:51: 24 SCARF AND ANNEAL OPERATOR CPT-05330 Abx/Therapy Injection 15:51:24 SCARF AND ANNEAL OPERATOR CPT-J1100 Decadron 4mg (Dexamethasone) 15:26:33 SCARF AND ANNEAL OPERATOR CPT-J1030 Depo Medrol 40 mg (Methyl Prednisolone Acetate) 15:26: 33 SCARF AND ANNEAL OPERATOR CPT-39510 Sono retroperitoneal complete kidneys and bladder 17:15: 30 CDT CPT-93675 Abd compl w upright 16:09:25 CDT CPT-J1100 Decadron 8mg (Dexamethasone) 17:07:57 CDT CPT-91766 Abx/Therapy Injection 17:07:57 CDT CPT-J1100 Decadron 8mg (Dexamethasone) 16:55:24 CDT CPT-02359 Chest 2V Frontal and Lat 16:32:44 CDT
--- OUTSIDE RECORDS SUMMARY | 2016-11-05 01:58 | XMS REPORT | Clinical Summary ---
Author Author Admin, [employer] Organization [facility] Address Unknown Phone Unavailable Allergies, Adverse [...] Abdominal pain, unspecified site Cellulitis 682.9 Resolved Vsihal Hui MD Cellulitis and abscess of unspecified [...] breath Nocturnal hypoxia 799.[address] [employer] Hypoxemia Neck pain 723.1 Resolved Vishal Hui [...] in 2 hours if needed SUMATRIPTAN SUCCINATE 30283381258 Active Vishal Hui MD Active OXYCODONE HCL ER 10 MG ORAL T12A 1/2 tab by mouth every 4 hours prn OXYCODONE HCL 18516819978 Active Neeraj Collins MD Active TESSALON PERLES 100 MG CAP 1 to 2 tablets by mouth 3 times daily as needed for cough BENZONATATE 79160172207 Active Vishal Hui MD Active METHYLPREDNISOLONE 4 MG ORAL TABS po daily METHYLPREDNISOLONE 36467534486 Active Vishal Hui MD Active LEVOFLOXACIN 500 MG ORAL TABS po daily LEVOFLOXACIN 36408355994 Active Vishal Hui MD Active CHANTIX STARTING MONTH EARNEST 0.5 MG X 11 & 1 MG X 42 TABS take as directed 2015 VARENICLINE TARTRATE 63886210616 Active Ahmet Carbajal MD Active CHANTIX 1 MG TABS 1 twice a day to help quit smoking VARENICLINE TARTRATE 76434246383 Active Ahmet Carbajal MD Active HYDROCODONE-ACETAMINOPHEN 5-325 MG TABS 1 to 2 four times a day as needed for pain use until can be seen by specialist HYDROCODONE- ACETAMINOPHEN 42261690579 No Longer Active Vishal Hui MD Active PROAIR HFA 108 (90 BASE) MCG/ACT AERS 2 puffs four times a day as needed 2015 ALBUTEROL SULFATE 15300721419 No Longer Active Vishal Hui MD Active PREDNISONE 20 MG TABS 2 daily for 5 days then 1 daily for 5 days PREDNISONE 67026163833 No Longer Active Vishal Hui MD Active ZITHROMAX Z-EARNEST 250 MG TABS 2 today and then 1 daily for 4 days AZITHROMYCIN 76310972177 No Longer Active Vishal Hui MD Active DICLOFENAC SODIUM 50 MG TBEC 1 tablet by mouth four times daily PRN Pain 2015 DICLOFENAC SODIUM 13850124448 Active Vishal Hui MD Active DICLOFENAC POTASSIUM TABS Take 1 tablet twice a day (pt. is not sure of the dose.) DICLOFENAC POTASSIUM TABS 00159092375 No Longer Active Vishal Hui MD Active VERAPAMIL HCL ER 120 MG ORAL CR-TABS Take 1 tablet by mouth twice a day. VERAPAMIL HCL 87758434494 Active Vishal Hui MD Active FLAGYL 500 MG TAB 1 tablet by mouth bid METRONIDAZOLE 64659965201 No Longer Active Vishal Hui MD Active ABILIOMAR MAINTENA 400 MG IM SUSR 400mg injection every 28 days ARIPIPRAZOLE 25607307837 Active Silvia Casey LPN Active FLUTICASONE PROPIONATE 50 MCG/ACT SUSP 2 sprays each nostril daily before bed. FLUTICASONE PROPIONATE 79845589549 Active Fabiola Johnson APRN Active ADZENYS XR-ODT 6.3 MG ORAL TBED 1 tab po daily for ADHD AMPHETAMINE 33285329192 Active Fabiola Johnson APRN Active BENADRYL 25 MG CAP 4 po at bedtime for insomnia DIPHENHYDRAMINE HCL 66085945606 Active Fabiola Johnson APRN Active KLONOPIN 1 MG ORAL TABS 1 tab po TID CLONAZEPAM 01858512735 Active Fabiola Johnson APRN Active VALIUM 5 MG TAB Take 1-2 tablets daily DIAZEPAM 99751883114 No Longer Active Fabiola Johnson APRN Active METOPROLOL TARTRATE 25 MG ORAL TABS 1/2 tablet twice daily for heart rate and blood pressure METOPROLOL TARTRATE 38735821230 No Longer Active Fabiola Johnson APRN Active MIRALAX ORAL POWD 17GMS DAILY IN WATER POLYETHYLENE GLYCOL 3350 04134079656 Active Vishal Hui MD Active VIIBRYD 10 MG ORAL TABS Take 1 tablet once a day VILAZODONE HCL 29653786354 Active Ahmet Carbajal MD Active MIRALAX PACK 1 po qd PRN Constipation POLYETHYLENE GLYCOL 3350 61461410906 No Longer Active Ahmet Carbajal MD Active MINIPRESS 2 MG CAPS 4 cap po at night PRAZOSIN HCL 44225332002 No Longer Active Ahmet Carbajal MD Active PIROXICAM 20 MG CAPS 1 cap po qd PRN Pain PIROXICAM 43082399162 No Longer Active Ahmet Carbajal MD Active TRAMADOL HCL 50 MG TABS 1-2 po TID PRN Pain TRAMADOL HCL 72877120320 No Longer Active Ahmet Carbajal MD Active METOPROLOL TARTRATE 50 MG TAB 1 po bid METOPROLOL TARTRATE 84022076414 No Longer Active Ahmet Carbajal MD Active ABILIFY 15 MG ORAL TABS 1 tab daily ARIPIPRAZOLE 56117789839 No Longer Active Ahmet Carbajal MD Active PROZAC 20 MG ORAL CAPS 1 tab daily FLUOXETINE HCL 10354851308 No Longer Active Ahmet Carbajal MD Active AMBIEN 5 MG ORAL TABS 1 tab at bedtime ZOLPIDEM TARTRATE 05848618115 No Longer Active Ahmet Carbajal MD Active PREDNISONE 20 MG TAB 2 tabs daily for 4 days, 1 tab daily for 4 days, 1/2 tab daily for 4 days PREDNISONE 15511975479 No Longer Active Ahmet Carbajal MD Active KEFLEX 500 MG CAP 1 po TID x 10 days CEPHALEXIN 45856992483 No Longer Active Vishal Hui MD Active TOPAMAX 50 MG ORAL TABS 1 tab twice daily TOPIRAMATE 14114389805 Active Vishal Hui MD Active SAPHRIS 5 MG SUBL 1 po bid ASENAPINE MALEATE 05430109218 No Longer Active Luigi Martínez APRN Active LATUDA 80 MG TABS Take one by mouth daily LURASIDONE HCL 02396635057 No Longer Active Pacollina Fralebron NORIEGA Active AMLODIPINE BESYLATE 5 MG TABS 1 tablet by mouth daily AMLODIPINE BESYLATE 01913591894 No Longer Active Jillina Fralebron WALTERSN Active AMITRIPTYLINE HCL 100 MG TAB one at hs AMITRIPTYLINE HCL 08084682511 No Longer Active Vishal Hui MD Active TRAZODONE HCL 100 MG TAB take 1 at bedtime TRAZODONE HCL 36219591237 No Longer Active Vishal Hui MD Active VYVANSE 40 MG CAPS 1 daily, LISDEXAMFETAMINE DIMESYLATE 16728395627 No Longer Active Vishal Hui MD Active IBUPROFEN 600 MG TAB 1 po TID PRN IBUPROFEN 04748553549 No Longer Active Vishal Hui MD Active PROZAC 20 MG CAP Take one by mouth daily FLUOXETINE HCL 35736475045 No Longer Active Vishal Hui MD Active ZOFRAN 4 MG TABS 1 po q6hr PRN Nausea ONDANSETRON HCL Active Vishal Hui MD Active BACTRIM DS 800-160 MG TABS 1 pill by mouth twice daily SULFAMETHOXAZOLE-TRIMETHOPRIM 79743058530 No Longer Active Sahara Rodriguez MD PhD Active DIFLUCAN 150 MG TAB 1 tablet by mouth daily FLUCONAZOLE 60376155962 No Longer Active Vishal Hui MD Active TIZANIDINE HCL 4 MG TABS 1 po q6hr PRN Muscle Spasm/Back Pain TIZANIDINE HCL 71486312760 Active Vishal Hui MD Active CLINDAMYCIN HCL 150 MG CAPS 1 four times a day CLINDAMYCIN HCL 69995264448 No Longer Active Neeraj Collins MD Active KEFLEX 500 MG ORAL CAPS 1 cap QID by mouth CEPHALEXIN 43829345489 No Longer Active Neeraj Collins MD Active DIFLUCAN 150 MG TABS 1 pill every other day x 2 doses FLUCONAZOLE 89355318245 No Longer Active Sahara Rodriguez MD PhD Active MELATONIN 3 MG CAPS 2 po q hs MELATONIN 70674600041 No Longer Active Sahara Rodriguez MD PhD Active MULTIVITAMINS CAPS Take one by mouth daily MULTIPLE VITAMIN 89038367690 No Longer Active Sahara Rodriguez MD PhD Active BACTRIM DS 800-160 MG TAB 1 tab by mouth twice daily TRIMETHOPRIM-SULFAMETHOXAZOLE 32061893013 No Longer Active Sahara Rodriguez MD PhD Active [facility] PROBIOTIC ORAL CHEW 2 daily po PROBIOTIC PRODUCT 74586634325 No Longer Active Sahara Rodriguez MD PhD Active BACTRIM DS 800-160 MG TABS 1 po BID x 7 days SULFAMETHOXAZOLE-TRIMETHOPRIM 24905357788 No Longer Active Vishal Hui MD Active CHANTIX STARTING MONTH EARNEST 0.5 MG X 11 & 1 MG X 42 TABS 0.5mg daily for 3 days , then 0.5mg BID for 4 days, then 1mg BID VARENICLINE TARTRATE 93891011097 No Longer Active TAMARA Gray Active VERAPAMIL HCL CR 120 MG TAB CR 1 po bid VERAPAMIL HCL 86300676681 No Longer Active Vishal Hui MD Active METOPROLOL SUCCINATE 50 MG TB24 1 tablet by mouth daily METOPROLOL SUCCINATE 50886346538 No Longer Active Vishal Hui MD Active SAPHRIS 10 MG SUBL 1 tab po bid ASENAPINE MALEATE 47543216830 No Longer Active Vishal Hui MD Active LISINOPRIL 20 MG TABS 1 tab po qd LISINOPRIL 11048494960 No Longer Active Vishal Hui MD Active LATUDA 20 MG TABS Take one by mouth daily LURASIDONE HCL 01336915459 No Longer Active Vishal Hui MD Active TRAZODONE HCL 50 MG TABS 1/2 tab po qd prn for anxiety TRAZODONE HCL 65983406430 No Longer Active Vishal Hui MD Active OMEPRAZOLE 20 MG TBEC 1 po q a.m. 30min prior to first food intake OMEPRAZOLE 58542092592 Active Vishal Hui MD Active RANITIDINE HCL 150 MG CAPS 1 twice a day RANITIDINE HCL 99586378163 Active Luigi Martínez APRN Active LINZESS 290 MCG CAPS Take one by mouth daily LINACLOTIDE 89372714841 No Longer Active Vishal Hui MD Active SAPHRIS 5 MG SUBL 1 tab po qd ASENAPINE MALEATE 34874758499 No Longer Active Vishal Hui MD Active ZALEPLON 10 MG CAPS 1 cap po every other night ZALEPLON 04370148772 No Longer Active Vishal Hui MD Active LYRICA 50 MG CAPS 1 tab po TID PREGABALIN 92813879652 No Longer Active Vishal Hui MD Active LORATADINE 10 MG TABS 1 tab po qd LORATADINE 05864818418 No Longer Active Vishal Hui MD Active VERAPAMIL HCL ER 180 MG CR-TABS 1 tab po bid VERAPAMIL HCL 19823248333 No Longer Active Vishal Hui MD Active MIRALAX POWD 1 capfull once daily POLYETHYLENE GLYCOL 3350 38570679207 No Longer Active Vishal Hui MD Active PREDNISONE 20 MG TABS 1 tab po qd PREDNISONE 19194015533 No Longer Active Renzo Thornton DO Active LEVOFLOXACIN 500 MG TABS 1 tab po qd LEVOFLOXACIN 86616183203 No Longer Active Renzo Thornton DO Active BUSPIRONE HCL 15 MG TABS 1 tab po TID BUSPIRONE HCL 18620870898 No Longer Active Renzo Thornton DO Active BENZTROPINE MESYLATE 1 MG TABS 1 tab po qd BENZTROPINE MESYLATE 77317105485 No Longer Active Renzo Thornton DO Active ATENOLOL 25 MG TABS 1 tab po qd ATENOLOL 66555192843 No Longer Active Renzo Thornton DO Active ESCITALOPRAM OXALATE 20 MG TABS 1 tab po qd ESCITALOPRAM OXALATE 70988401824 No Longer Active Renzo Thornton DO Active ADVAIR DISKUS 250-50 MCG/DOSE AEPB 1 puff BID FLUTICASONE-SALMETEROL 01900274613 No Longer Active Renzo Thornton DO Active PREDNISONE 20 MG TAB 2 tabs daily for 3 days, 1 tab daily for 3 days, 1/2 tab daily for 2 days PREDNISONE 97412770934 No Longer Active Vishal Hui MD Active CEFDINIR 300 MG CAPS by mouth twice a day CEFDINIR 38419905039 No Longer Active Vishal Hui MD Active LANSOPRAZOLE 30 MG CPDR 1 cap po qd LANSOPRAZOLE 11028473718 No Longer Active Vishal Hui MD Active BACLOFEN 20 MG TABS 1 tab po tid BACLOFEN 66109176046 No Longer Active Vishal Hui MD Active ADVAIR DISKUS 250-50 MCG/DOSE AEPB 1 puff BID ADVAIR DISKUS 250-50 MCG/DOSE AEPB FLUTICASONE-SALMETEROL Inactive ESCITALOPRAM OXALATE 20 MG TABS 1 tab po qd ESCITALOPRAM OXALATE 20 MG TABS 406334 ESCITALOPRAM OXALATE Inactive ATENOLOL 25 MG TABS 1 tab po qd ATENOLOL 25 MG TABS 467092 ATENOLOL Inactive BENZTROPINE MESYLATE 1 MG TABS 1 tab po qd BENZTROPINE MESYLATE 1 MG TABS 925732 BENZTROPINE MESYLATE Inactive BUSPIRONE HCL 15 MG TABS 1 tab po TID BUSPIRONE HCL 15 MG TABS 546205 BUSPIRONE HCL Inactive LEVOFLOXACIN 500 MG TABS 1 tab po qd LEVOFLOXACIN 500 MG TABS 970423 LEVOFLOXACIN Inactive PREDNISONE 20 MG TABS 1 tab po qd PREDNISONE 20 MG TABS 304567 PREDNISONE Inactive MIRALAX POWD 1 capfull once daily MIRALAX POWD 747874 POLYETHYLENE GLYCOL 3350 Inactive VERAPAMIL HCL ER 180 MG CR-TABS 1 tab po bid VERAPAMIL HCL ER 180 MG CR-TABS VERAPAMIL HCL Inactive LORATADINE 10 MG TABS 1 tab po qd LORATADINE 10 MG TABS 441894 LORATADINE Inactive LYRICA 50 MG CAPS 1 tab po TID LYRICA 50 MG CAPS PREGABALIN Inactive ZALEPLON 10 MG CAPS 1 cap po every other night ZALEPLON 10 MG CAPS 894813 ZALEPLON Inactive SAPHRIS 5 MG SUBL 1 tab po qd SAPHRIS 5 MG SUBL ASENAPINE MALEATE Inactive TRAZODONE HCL 50 MG TABS 1/2 tab po qd prn for anxiety TRAZODONE HCL 50 MG TABS 933790 TRAZODONE HCL Inactive LATUDA 20 MG TABS Take one by mouth daily LATUDA 20 MG TABS LURASIDONE HCL Inactive LISINOPRIL 20 MG TABS 1 tab po qd LISINOPRIL 20 MG TABS 853798 LISINOPRIL Inactive SAPHRIS 10 MG SUBL 1 [...] twice daily BACTRIM DS 800-160 MG TAB 988444 TRIMETHOPRIM-SULFAMETHOXAZOLE Inactive MULTIVITAMINS CAPS Take one by mouth daily MULTIVITAMINS CAPS MULTIPLE VITAMIN Inactive MELATONIN 3 MG CAPS 2 po q hs MELATONIN 3 MG CAPS 076913 MELATONIN Inactive KEFLEX 500 MG ORAL CAPS 1 cap QID by mouth KEFLEX 500 MG ORAL CAPS 018502 CEPHALEXIN Inactive CLINDAMYCIN HCL 150 MG CAPS 1 four times a day CLINDAMYCIN HCL 150 MG CAPS 162704 CLINDAMYCIN HCL Inactive DIFLUCAN 150 MG TAB 1 tablet by mouth daily DIFLUCAN 150 MG TAB 238598 FLUCONAZOLE Inactive PROZAC 20 MG CAP Take one by mouth daily PROZAC 20 MG CAP 457361 FLUOXETINE HCL Inactive IBUPROFEN 600 MG TAB 1 po TID PRN IBUPROFEN 600 MG TAB 105367 IBUPROFEN Inactive VYVANSE 40 MG CAPS 1 daily, VYVANSE 40 MG CAPS LISDEXAMFETAMINE DIMESYLATE Inactive TRAZODONE HCL 100 MG TAB take 1 at bedtime TRAZODONE HCL 100 MG TAB 675137 TRAZODONE HCL Inactive AMITRIPTYLINE HCL 100 MG TAB one at hs AMITRIPTYLINE HCL 100 MG TAB 597719 AMITRIPTYLINE HCL Inactive AMLODIPINE BESYLATE 5 MG TABS 1 tablet by mouth daily AMLODIPINE BESYLATE 5 MG TABS 136366 AMLODIPINE BESYLATE Inactive LATUDA 80 MG TABS Take one by mouth daily LATUDA 80 MG TABS LURASIDONE HCL Inactive SAPHRIS 5 MG SUBL 1 po bid SAPHRIS 5 MG SUBL ASENAPINE MALEATE Inactive PREDNISONE 20 MG TAB 2 tabs daily for 4 days, 1 tab daily for 4 days, 1/2 tab daily for 4 days PREDNISONE 20 MG TAB 724698 PREDNISONE Inactive AMBIEN 5 MG ORAL TABS 1 tab at bedtime AMBIEN 5 MG ORAL TABS 557543 ZOLPIDEM TARTRATE Inactive PROZAC 20 MG ORAL CAPS 1 tab daily PROZAC 20 MG ORAL CAPS 609321 FLUOXETINE HCL Inactive ABILIFY 15 MG ORAL TABS 1 tab daily ABILIFY 15 MG ORAL TABS 332999 ARIPIPRAZOLE Inactive METOPROLOL TARTRATE 50 MG TAB 1 po bid METOPROLOL TARTRATE 50 MG TAB 330392 METOPROLOL TARTRATE Inactive TRAMADOL HCL 50 MG TABS 1-2 po TID PRN Pain TRAMADOL HCL 50 MG TABS 525261 TRAMADOL HCL Inactive PIROXICAM 20 MG CAPS 1 cap po qd PRN Pain PIROXICAM 20 MG CAPS 484704 PIROXICAM Inactive MINIPRESS 2 MG CAPS 4 cap po at night MINIPRESS 2 MG CAPS 229092 PRAZOSIN HCL Inactive MIRALAX PACK 1 po qd PRN Constipation MIRALAX PACK 359695 POLYETHYLENE GLYCOL 3350 Inactive METOPROLOL TARTRATE 25 MG ORAL TABS 1/2 tablet twice daily for heart rate and blood pressure METOPROLOL TARTRATE 25 MG ORAL TABS 506292 METOPROLOL TARTRATE Inactive VALIUM 5 MG TAB Take 1-2 tablets daily VALIUM 5 MG TAB 958596 DIAZEPAM Inactive FLAGYL 500 MG TAB 1 tablet by mouth bid FLAGYL 500 MG TAB 733651 METRONIDAZOLE Inactive DICLOFENAC POTASSIUM TABS Take 1 tablet twice a day (pt. is not sure of the dose.) DICLOFENAC POTASSIUM TABS DICLOFENAC POTASSIUM TABS Inactive ZITHROMAX Z-EARNEST 250 MG TABS 2 today and then 1 daily for 4 days ZITHROMAX Z-EARNEST 250 MG TABS 1255204 AZITHROMYCIN Inactive PREDNISONE 20 MG TABS 2 daily for 5 days then 1 daily for 5 days PREDNISONE 20 MG TABS 319503 PREDNISONE Inactive PROAIR HFA 108 (90 BASE) MCG/ACT AERS 2 puffs four times a day as needed 2015 PROAIR HFA 108 (90 BASE) MCG/ACT AERS ALBUTEROL SULFATE Inactive HYDROCODONE-ACETAMINOPHEN 5-325 MG TABS 1 to 2 four times a day as needed for pain use until can be seen by specialist HYDROCODONE- ACETAMINOPHEN 5-325 MG TABS 052394 HYDROCODONE-ACETAMINOPHEN Inactive CEFDINIR 300 MG CAPS by mouth twice a day CEFDINIR 300 MG CAPS 209647 CEFDINIR Inactive PREDNISONE 20 MG TAB 2 tabs daily for 3 days, 1 tab daily for 3 days, 1/2 tab daily for 2 days PREDNISONE 20 MG TAB 467278 PREDNISONE Inactive BACTRIM DS 800-160 MG TABS 1 po BID x 7 days BACTRIM DS 800-160 MG TABS 19820521 SULFAMETHOXAZOLE-TRIMETHOPRIM Inactive DIFLUCAN 150 MG TABS 1 pill every other day x 2 doses DIFLUCAN 150 MG TABS 123105 FLUCONAZOLE Inactive BACTRIM DS 800-160 MG TABS 1 pill by mouth twice daily BACTRIM DS 800-160 MG TABS 19820521 SULFAMETHOXAZOLE-TRIMETHOPRIM Inactive KEFLEX 500 MG CAP 1 po TID x 10 days KEFLEX 500 MG CAP 025179 CEPHALEXIN Inactive Advance Directives Directive Description Start [...] % 11.6-14.8 platelet count 394 10^3/MM^3 10*3/mm3 292-474 7521/01/11 leukocyte count, blood 13.8 10^3/MM^3 10*3/mm3 4.6-10.2 [...] Panel - Chemistry sodium, serum 139 mmol/L 545-384 9922/12/03 carbon dioxide, venous blood 28.5 mmol/L 21.0-32.0 [...] 5.5 % 4.3-6.0 cholesterol, serum 159 mg/dL 356-335 6209/12/03 triglyceride, serum, fasting 118 mg/dL 30-200 HDL [...] Panel - Chemistry sodium, serum 139 mmol/L 869-983 4280/12/22 carbon dioxide, venous blood 26.8 mmol/L 21.0-32.0 potassium, serum 4.2 mmol/L 3.5-5.2 chloride, serum 103 mmol/L 98-107 blood glucose 115 mg/dL 65-110 urea nitrogen, blood 20 mg/dL 7-18 creatinine, serum 0.90 mg/dL 0.55-1.30 alanine aminotransferase (SGPT), serum 38 U/L -78 aspartate aminotransferase (SGOT), serum 19 U/L 15-37 calcium, serum 8.6 mg/dL 8.5-10.1 bilirubin, serum, total 0.30 mg/dL 0.00-1.00 sodium, serum 139 mmol/L 879-900 6856/01/11 carbon dioxide, venous blood 26.6 mmol/L 21.0-32.0 potassium, serum 4.1 mmol/L 3.5-5.2 chloride, serum 100 mmol/L 98-107 blood glucose 86 mg/dL 65-110 urea nitrogen, blood 16 mg/dL 7-18 creatinine, serum 1.00 mg/dL 0.55-1.30 alanine aminotransferase (SGPT), serum 48 U/L -78 aspartate aminotransferase (SGOT), serum 17 U/L 15-37 calcium, serum 9.1 mg/dL 8.5-10.1 bilirubin, serum, total 0.40 mg/dL 0.00-1.00 sodium, serum 142 mmol/L 335-103 4060/06/08 carbon dioxide, venous blood 27.6 mmol/L 21.0-32.0 potassium, serum 4.0 mmol/L 3.5-5.2 chloride, serum 105 mmol/L 98-107 blood glucose 95 mg/dL 65-110 urea nitrogen, blood 8 mg/dL 7-18 creatinine, serum 0.75 mg/dL 0.55-1.30 alanine aminotransferase (SGPT), serum 49 U/L aspartate aminotransferase (SGOT), serum 28 U/L 15-37 calcium, serum 9.4 mg/dL 8.5-10.1 bilirubin, serum, total 0.30 mg/dL 0.00-1.00 sodium, serum 140 mmol/L 509-110 3119/08/08 carbon dioxide, venous blood 33.7 mmol/L 21.0-32.0 [...] Rate - Chemistry sodium, serum 139 mmol/L 848-242 4303/12/11 carbon dioxide, venous blood 25.4 mmol/L 21.0-32.0 [...] hormone, serum 5.8 m[iU]/mL Lab Report: MonoStemo UADIP W/MICRO, AUTO - Chemistry protein, total [...] mg/dL Encounters Code Encounter Date Provider Facility CPT-87767 Level 3 Est. Patient 15:50:44 CDT Vishal Hui MD [facility] CPT-60664 Level 3 Est. Patient 11:36:17 CDT Ahmet Carbajal MD [facility] CPT-17514 Level 3 Est. Patient 13:29:16 CDT Vishal Hui MD [facility] CPT-65601 Level 3 Est. Patient 14:27:52 CDT Neeraj Collins MD [facility] CPT-78963 Level 3 Est. Patient 08:56:03 [address] Martínez [facility] [place] CPT-14642 Level 4 Est. Patient 12:11:[address] [facility] [place] CPT-25895 Level 3 New Patient 16:53:37 CDT Albert Caldera MD [facility] CPT-28058 Level 3 Est. Patient 11:25:49 CDT Renzo Thornton DO [facility] CPT-25648 Level 3 Est. Patient 15:22:01 CDT Ahmet Carbajal MD [facility] CPT-49991 Level 4 Est. Patient 09:00:51 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 Vishal Hui MD [facility] CPT-20951 Level 3 Est. Patient 11:37:33 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 Vishal Hui MD [facility] CPT-10029 Level 3 Est. Patient 08:41:09 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 Vishal Hui MD [facility] CPT-99605 Level 4 Est. Patient 10:19:35 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 Vishal Hui MD [facility] CPT-37022 Level 3 Est. Patient 13:35:45 CDT Vishal Hui MD [facility] CPT-07814 Level 4 Est. Patient 10:08:37 CDT Vishal Hui MD [facility] CPT-51037 Level 3 Est. Patient 11:22:10 CDT Vishal Hui MD [facility] CPT-79435 Level 3 Est. Patient 11:03:32 CDT Sahara Rodriguez MD PhD [facility] CPT-96220 Level 3 Est. Patient 09:41:35 CDT Vishal Hui MD [facility] CPT-13085 Level 3 Est. Patient 12:00:41 CDT Neeraj Collins MD [facility] CPT-70444 Level 3 Est. Patient 09:16:24 CDT Vishal Hui MD [facility] CPT-14091 Level 4 Est. Patient 13:59:09 CDT Neeraj Collins MD [facility] CPT-03501 Level 3 Est. Patient 15:19:43 CDT Renzo Thornton [facility] CPT-76760 Level 3 Est. Patient 18:10:26 CDT Sahara Rodriguez MD PhD [facility] CPT-36660 Level 3 Est. Patient 14:49:50 CDT Vishal Hui MD [facility] CPT-42176 Level 4 Est. Patient 18:41:46 CDT Neeraj Collins MD [facility] CPT-62145 Level 4 Est. Patient 09:18:38 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 Vishal Hui MD [facility] CPT-15650 Level 3 Est. Patient 14:43:55 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 Vishal Hui MD [facility] CPT-14067 Level 3 Est. Patient 15:26:33 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 Sahara Rodriguez MD [facility] CPT-55942 Level 3 Est. Patient 10:32:14 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 Vishal Hui MD [facility] CPT-88223 Level 3 Est. Patient 15:12:52 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 Vishal Hui MD [facility] CPT-96769 Level 4 Est. Patient 09:19:27 CDT Vishal Hui MD [facility] CPT-29663 Level 3 Est. Patient 15:53:00 CDT Renzo Thornton DO [facility] CPT-82868 Level 3 Est. Patient 15:50:30 CDT Renzo Thornton [facility] CPT-46980 Level 3 Est. Patient 16:55:24 CDT Vishal Hui MD [facility] Procedures Code Procedure Name Date Entry Date Standard Description CPT-16269 Abx/Therapy Injection 08:47:09 CDT CPT-19096 Abx/Therapy Injection 13:29:56 CDT CPT-27419 Abx/Therapy Injection 08:36:16 CDT CPT-34415 Wet Mount - LAB USE ONLY 17:44:58 CDT CPT-49898 UA w micro - LAB USE ONLY 17:44:58 CDT CPT-35665 CMP - LAB USE ONLY 17:44:58 CDT CPT-17027 Venipuncture Draw Fee 17:44:58 CDT CPT-36455 Cervical Min 4V - XRAY USE ONLY 09:01:40 CDT CPT-40850 Chest 2V Frontal and Lat - XRAY USE ONLY 11:06:31 CDT CPT-62067 EKG Trac and Interp - XRAY USE ONLY 11:31:43 CDT 08/26 CPT-J3420 Vitamin B12 1000mcg (Cyanocobalamin) 08:10:26 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 04/12 CPT-21897 Abx/Therapy Injection 08:10:26 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 CPT-G0438 Initial Annual Wellness Exam 19:01:01 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 CPT-J3420 Vitamin B12 1000mcg (Cyanocobalamin) 16:57:46 CDT 08/14 CPT-39388 Recombivax HB Injection Suspension 5 MCG/0.5ML 08:37:50 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 CPT-60482 Immunization Single Admin 08:37:50 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 CPT-J3420 Vitamin B12 1000mcg (Cyanocobalamin) 08:32:16 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 03/11 CPT-75929 Abx/Therapy Injection 08:32:16 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 CPT-43468 Chest 2V Frontal and Lat 11:46:38 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 CPT-66664 Venipuncture Draw Fee 09:12:45 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 CPT-J3420 Vitamin B12 1000mcg (Cyanocobalamin) 08:50:15 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 02/08 CPT-33260 Abx/Therapy Injection 08:50:15 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 CPT-Cryo Cryotherapy 10:19:35 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 CPT-000 Give Appropriate Flu Vaccine 09:22:16 CDT CPT-J3420 Vitamin B12 1000mcg (Cyanocobalamin) 19:08:57 CDT 01/11 CPT-64235 Abx/Therapy Injection 19:08:57 CDT CPT-J3420 Vitamin B12 1000mcg (Cyanocobalamin) 08:19:08 CDT 12/11 CPT-48300 Abx/Therapy Injection 08:19:08 CDT CPT-J3420 Vitamin B12 1000mcg (Cyanocobalamin) 14:48:00 CDT 11/09 CPT-25287 Abx/Therapy Injection 14:47:59 CDT CPT-J3420 Vitamin B12 1000mcg (Cyanocobalamin) 08:34:04 CDT 10/09 CPT-34409 Abx/Therapy Injection 08:34:04 CDT CPT-J3420 Vitamin B12 1000mcg (Cyanocobalamin) 09:18:52 CDT 09/11 CPT-33640 Abx/Therapy Injection 09:18:52 CDT CPT-J3420 Vitamin B12 1000mcg (Cyanocobalamin) 08:35:44 CDT 09/04 CPT-45089 Abx/Therapy Injection 08:35:44 CDT CPT-80410 Immunization Single Admin 11:07:16 CDT CPT-74954 Hepatitis B adult IM 11:07:16 CDT CPT-J3420 Vitamin B12 1000mcg (Cyanocobalamin) 11:00:49 CDT 08/28 CPT-J1040 Depo Medrol 80 mg (Methyl Prednisolone Acetate) 11:00: 49 CDT CPT-15885 Abx/Therapy Injection 11:00:49 CDT CPT-J1040 Depo Medrol 80 mg (Methyl Prednisolone Acetate) 09:16: 23 CDT CPT-J3420 Vitamin B12 1000mcg (Cyanocobalamin) 08:27:05 CDT 08/20 CPT-60513 Abx/Therapy Injection 08:27:05 CDT CPT-17043 Recombivax HB Injection Suspension 5 MCG/0.5ML 10:00:41 CDT CPT-32726 Administration single or combination vaccine inc oral 10 :00:41 CDT CPT-74460 Sono transvag pelvis non OB uterus ovaries cervix 16:36: 57 CDT CPT-97473 LS spine comp w obliq 09:50:55 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 CPT-63956 Abd compl w upright 09:50:55 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 CPT-J1100 Decadron 4mg (Dexamethasone) 15:51:24 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 CPT-J1030 Depo Medrol 40 mg (Methyl Prednisolone Acetate) 15:51: 24 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 CPT-98005 Abx/Therapy Injection 15:51:24 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
--- OUTSIDE RECORDS SUMMARY | 2016-11-05 02:01 | XMS REPORT | Clinical Summary ---
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 Morbid obesity 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 Active Juliet [...] breath Nocturnal hypoxia 799.02 Active Fabiola Johnson OIL RIG DRILLER Hypoxemia Neck pain 723.1 Resolved Vishal Hui [...] day to help quit smoking VARENICLINE TARTRATE 38875737309 No Longer Active Dipika Burgos MD Active CHANTIX STARTING MONTH EARNEST 0.5 MG X 11 & 1 MG X 42 TABS take as directed 2015 VARENICLINE TARTRATE 21855521305 No Longer Active Dipika Brugos MD Active MONISTAT 7 COMBO PACK WOODROW 100 & 2 MG-% (9GM) VAG KIT 1 applicatorful per vagina q pm x 7 MICONAZOLE NITRATE 61960233393 Active Jillina Frazell OIL RIG DRILLER Active FLAGYL 500 MG TAB 1 tablet by mouth bid METRONIDAZOLE 44649426461 Active Jillina Frazell OIL RIG DRILLER Active TESSALON PERLES 100 MG CAP 1 to 2 tablets by mouth 3 times daily as needed for cough BENZONATATE 48290422012 No Longer Active Jillina Frazell OIL RIG DRILLER Active ABILIFY MAINTENA 400 MG IM SUSR 400mg injection every 26 days ARIPIPRAZOLE 56884738866 Active Silvia Casey FINAL RAIL CUTTER Active IMITREX 50 MG ORAL TABS 0.5 po x 1 PRN Headache. May repeat dose x 1 in 2 hours if needed SUMATRIPTAN SUCCINATE 54738003776 Active Vishal Hui MD Active OXYCODONE HCL ER 10 MG ORAL T12A 1/2 tab by mouth every 4 hours prn OXYCODONE HCL 15551923930 Active Neeraj Collins MD Active METHYLPREDNISOLONE 4 MG ORAL TABS po daily METHYLPREDNISOLONE 55009132558 Active Vishal Hui MD Active LEVOFLOXACIN 500 MG ORAL TABS po daily LEVOFLOXACIN 08723834075 Active Vishal Hui MD Active HYDROCODONE-ACETAMINOPHEN 5-325 MG TABS 1 to 2 four times a day as needed for pain use until can be seen by specialist HYDROCODONE- ACETAMINOPHEN 49696690984 No Longer Active Vishal Hui MD Active PROAIR HFA 108 (90 BASE) MCG/ACT AERS 2 puffs four times a day as needed 2015 ALBUTEROL SULFATE 79291210461 No Longer Active Vishal Hui MD Active PREDNISONE 20 MG TABS 2 daily for 5 days then 1 daily for 5 days PREDNISONE 11399453596 No Longer Active Vishal Hui MD Active ZITHROMAX Z-EARNEST 250 MG TABS 2 today and then 1 daily for 4 days AZITHROMYCIN 13198998234 No Longer Active Vishal Hui MD Active DICLOFENAC SODIUM 50 MG TBEC 1 tablet by mouth four times daily PRN Pain 2015 DICLOFENAC SODIUM 75971520530 Active Vishal Hui MD Active DICLOFENAC POTASSIUM TABS Take 1 tablet twice a day (pt. is not sure of the dose.) DICLOFENAC POTASSIUM TABS 22084667473 No Longer Active Vishal Hui MD Active VERAPAMIL HCL ER 120 MG ORAL CR-TABS Take 1 tablet by mouth twice a day. VERAPAMIL HCL 90615367709 Active Vishal Hui MD Active FLAGYL 500 MG TAB 1 tablet by mouth bid METRONIDAZOLE 78122408179 No Longer Active Vishal Hui MD Active FLUTICASONE PROPIONATE 50 MCG/ACT SUSP 2 sprays each nostril daily before bed. FLUTICASONE PROPIONATE 09244436174 Active Fabiola Johnson APRN Active ADZENYS XR-ODT 6.3 MG ORAL TBED 1 tab po daily for ADHD AMPHETAMINE 43166027359 Active Fabiola Johnson APRN Active BENADRYL 25 MG CAP 4 po at bedtime for insomnia DIPHENHYDRAMINE HCL 54813163673 Active Fabiola Johnson APRN Active KLONOPIN 1 MG ORAL TABS 1 tab po TID CLONAZEPAM 55431183798 Active Fabiola Johnson APRN Active VALIUM 5 MG TAB Take 1-2 tablets daily DIAZEPAM 45190204956 No Longer Active Fabiola Johnson APRN Active METOPROLOL TARTRATE 25 MG ORAL TABS 1/2 tablet twice daily for heart rate and blood pressure METOPROLOL TARTRATE 15182067494 No Longer Active Fabiola Johnson APRN Active MIRALAX ORAL POWD 17GMS DAILY IN WATER POLYETHYLENE GLYCOL 3350 27787052428 Active Vishal Hui MD Active VIIBRYD 10 MG ORAL TABS Take 1 tablet once a day VILAZODONE HCL 37246760642 Active Ahmet Carbajal MD Active MIRALAX PACK 1 po qd PRN Constipation POLYETHYLENE GLYCOL 3350 40377110805 No Longer Active Ahmet Carbajal MD Active MINIPRESS 2 MG CAPS 4 cap po at night PRAZOSIN HCL 22281874926 No Longer Active Ahmet Carbajal MD Active PIROXICAM 20 MG CAPS 1 cap po qd PRN Pain PIROXICAM 86422804008 No Longer Active Ahmet Carbajal MD Active TRAMADOL HCL 50 MG TABS 1-2 po TID PRN Pain TRAMADOL HCL 57980082488 No Longer Active Ahmet Carbajal MD Active METOPROLOL TARTRATE 50 MG TAB 1 po bid METOPROLOL TARTRATE 68595663045 No Longer Active Ahmet Carbajal MD Active ABILIFY 15 MG ORAL TABS 1 tab daily ARIPIPRAZOLE 35780813969 No Longer Active Ahmet Carbajal MD Active PROZAC 20 MG ORAL CAPS 1 tab daily FLUOXETINE HCL 76803169203 No Longer Active Ahmet Carbajal MD Active AMBIEN 5 MG ORAL TABS 1 tab at bedtime ZOLPIDEM TARTRATE 08260746532 No Longer Active Ahmet Carbajal MD Active PREDNISONE 20 MG TAB 2 tabs daily for 4 days, 1 tab daily for 4 days, 1/2 tab daily for 4 days PREDNISONE 40398099855 No Longer Active Ahmet Carbajal MD Active KEFLEX 500 MG CAP 1 po TID x 10 days CEPHALEXIN 75759444799 No Longer Active Vishal Hui MD Active TOPAMAX 50 MG ORAL TABS 1 tab twice daily TOPIRAMATE 41839296276 Active Vishal Hui MD Active SAPHRIS 5 MG SUBL 1 po bid ASENAPINE MALEATE 00625617192 No Longer Active Luigi Martínez APRN Active LATUDA 80 MG TABS Take one by mouth daily LURASIDONE HCL 58222161748 No Longer Active Luigi Martínez APRN Active AMLODIPINE BESYLATE 5 MG TABS 1 tablet by mouth daily AMLODIPINE BESYLATE 83724955348 No Longer Active Luigi Martínez APRN Active AMITRIPTYLINE HCL 100 MG TAB one at hs AMITRIPTYLINE HCL 02375742598 No Longer Active Vishal Hui MD Active TRAZODONE HCL 100 MG TAB take 1 at bedtime TRAZODONE HCL 19932551535 No Longer Active Vishal Hui MD Active VYVANSE 40 MG CAPS 1 daily, LISDEXAMFETAMINE DIMESYLATE 99949397867 No Longer Active Vishal Hui MD Active IBUPROFEN 600 MG TAB 1 po TID PRN IBUPROFEN 95587317096 No Longer Active Vishal Hui MD Active PROZAC 20 MG CAP Take one by mouth daily FLUOXETINE HCL 70090313652 No Longer Active Vishal Hui MD Active ZOFRAN 4 MG TABS 1 po q6hr PRN Nausea ONDANSETRON HCL Active Vishal Hui MD Active BACTRIM DS 800-160 MG TABS 1 pill by mouth twice daily SULFAMETHOXAZOLE-TRIMETHOPRIM 10002716528 No Longer Active Sahara Rodriguez MD PhD Active DIFLUCAN 150 MG TAB 1 tablet by mouth daily FLUCONAZOLE 40055269860 No Longer Active Vishal Hui MD Active TIZANIDINE HCL 4 MG TABS 1 po q6hr PRN Muscle Spasm/Back Pain TIZANIDINE HCL 26678326522 Active Vishal Hui MD Active CLINDAMYCIN HCL 150 MG CAPS 1 four times a day CLINDAMYCIN HCL 27549432509 No Longer Active Neeraj Collins MD Active KEFLEX 500 MG ORAL CAPS 1 cap QID by mouth CEPHALEXIN 82733049349 No Longer Active Neeraj Collins MD Active DIFLUCAN 150 MG TABS 1 pill every other day x 2 doses FLUCONAZOLE 95082567837 No Longer Active Sahara Rodriguez MD PhD Active MELATONIN 3 MG CAPS 2 po q hs MELATONIN 61261327337 No Longer Active Sahara Rodriguez MD PhD Active MULTIVITAMINS CAPS Take one by mouth daily MULTIPLE VITAMIN 85627131296 No Longer Active Sahara Rodriguez MD PhD Active BACTRIM DS 800-160 MG TAB 1 tab by mouth twice daily TRIMETHOPRIM-SULFAMETHOXAZOLE 93392028888 No Longer Active Sahara Rodriguez MD PhD Active [facility] PROBIOTIC ORAL CHEW 2 daily po PROBIOTIC PRODUCT 86068317847 No Longer Active Sahara Rodriguez MD PhD Active BACTRIM DS 800-160 MG TABS 1 po BID x 7 days SULFAMETHOXAZOLE-TRIMETHOPRIM 72690242186 No Longer Active Vishal Hui MD Active CHANTIX STARTING MONTH EARNEST 0.5 MG X 11 & 1 MG X 42 TABS 0.5mg daily for 3 days , then 0.5mg BID for 4 days, then 1mg BID VARENICLINE TARTRATE 61596496640 No Longer Active TAMARA Gray Active VERAPAMIL HCL CR 120 MG TAB CR 1 po bid VERAPAMIL HCL 53155099574 No Longer Active Vishal Hui MD Active METOPROLOL SUCCINATE 50 MG TB24 1 tablet by mouth daily METOPROLOL SUCCINATE 18112753442 No Longer Active Vishal Hui MD Active SAPHRIS 10 MG SUBL 1 tab po bid ASENAPINE MALEATE 09296337400 No Longer Active Vishal Hui MD Active LISINOPRIL 20 MG TABS 1 tab po qd LISINOPRIL 58553449254 No Longer Active Vishal Hui MD Active LATUDA 20 MG TABS Take one by mouth daily LURASIDONE HCL 49018303497 No Longer Active Vishal Hui MD Active TRAZODONE HCL 50 MG TABS 1/2 tab po qd prn for anxiety TRAZODONE HCL 28977333161 No Longer Active Vishal Hui MD Active OMEPRAZOLE 20 MG TBEC 1 po q a.m. 30min prior to first food intake OMEPRAZOLE 35976790079 Active Vishal Hui MD Active RANITIDINE HCL 150 MG CAPS 1 twice a day RANITIDINE HCL 05933090460 Active Jillina Frazell OIL RIG DRILLER Active LINZESS 290 MCG CAPS Take one by mouth daily LINACLOTIDE 09866945280 No Longer Active Vishal Hui MD Active SAPHRIS 5 MG SUBL 1 tab po qd ASENAPINE MALEATE 84915656088 No Longer Active Vishal Hui MD Active ZALEPLON 10 MG CAPS 1 cap po every other night ZALEPLON 06706921045 No Longer Active Vishal Hui MD Active LYRICA 50 MG CAPS 1 tab po TID PREGABALIN 74401666641 No Longer Active Vishal Hui MD Active LORATADINE 10 MG TABS 1 tab po qd LORATADINE 35915603420 No Longer Active Vishal Hui MD Active VERAPAMIL HCL ER 180 MG CR-TABS 1 tab po bid VERAPAMIL HCL 78210693799 No Longer Active Vishal Hui MD Active MIRALAX POWD 1 capfull once daily POLYETHYLENE GLYCOL 3350 92558358161 No Longer Active Vishal Hui MD Active PREDNISONE 20 MG TABS 1 tab po qd PREDNISONE 90619214647 No Longer Active Renzo Thornton DO Active LEVOFLOXACIN 500 MG TABS 1 tab po qd LEVOFLOXACIN 78744043490 No Longer Active Renzo Thornton DO Active BUSPIRONE HCL 15 MG TABS 1 tab po TID BUSPIRONE HCL 30703187914 No Longer Active Renzo Thornton DO Active BENZTROPINE MESYLATE 1 MG TABS 1 tab po qd BENZTROPINE MESYLATE 91608475896 No Longer Active Renzo Thornton DO Active ATENOLOL 25 MG TABS 1 tab po qd ATENOLOL 69351215005 No Longer Active Renzo Thornton DO Active ESCITALOPRAM OXALATE 20 MG TABS 1 tab po qd ESCITALOPRAM OXALATE 02212201679 No Longer Active Renzo Thornton DO Active ADVAIR DISKUS 250-50 MCG/DOSE AEPB 1 puff BID FLUTICASONE-SALMETEROL 52710253875 No Longer Active Renzo Thornton DO Active PREDNISONE 20 MG TAB 2 tabs daily for 3 days, 1 tab daily for 3 days, 1/2 tab daily for 2 days PREDNISONE 87038701472 No Longer Active Vishal Hui MD Active CEFDINIR 300 MG CAPS by mouth twice a day CEFDINIR 31946168629 No Longer Active Vishal Hui MD Active LANSOPRAZOLE 30 MG CPDR 1 cap po qd LANSOPRAZOLE 09251036300 No Longer Active Vishal Hui MD Active BACLOFEN 20 MG TABS 1 tab po tid BACLOFEN 71552289232 No Longer Active Vishal Hui MD Active ADVAIR DISKUS 250-50 MCG/DOSE AEPB 1 puff BID ADVAIR DISKUS 250-50 MCG/DOSE AEPB FLUTICASONE-SALMETEROL Inactive ESCITALOPRAM OXALATE 20 MG TABS 1 tab po qd ESCITALOPRAM OXALATE 20 MG TABS 543771 ESCITALOPRAM OXALATE Inactive ATENOLOL 25 MG TABS 1 tab po qd ATENOLOL 25 MG TABS 759421 ATENOLOL Inactive BENZTROPINE MESYLATE 1 MG TABS 1 tab po qd BENZTROPINE MESYLATE 1 MG TABS 087855 BENZTROPINE MESYLATE Inactive BUSPIRONE HCL 15 MG TABS 1 tab po TID BUSPIRONE HCL 15 MG TABS 510793 BUSPIRONE HCL Inactive LEVOFLOXACIN 500 MG TABS 1 tab po qd LEVOFLOXACIN 500 MG TABS 271309 LEVOFLOXACIN Inactive PREDNISONE 20 MG TABS 1 tab po qd PREDNISONE 20 MG TABS 804315 PREDNISONE Inactive MIRALAX POWD 1 capfull once daily MIRALAX POWD 303720 POLYETHYLENE GLYCOL 3350 Inactive VERAPAMIL HCL ER 180 MG CR-TABS 1 tab po bid VERAPAMIL HCL ER 180 MG CR-TABS VERAPAMIL HCL Inactive LORATADINE 10 MG TABS 1 tab po qd LORATADINE 10 MG TABS 204694 LORATADINE Inactive LYRICA 50 MG CAPS 1 tab po TID LYRICA 50 MG CAPS PREGABALIN Inactive ZALEPLON 10 MG CAPS 1 cap po every other night ZALEPLON 10 MG CAPS 591214 ZALEPLON Inactive SAPHRIS 5 MG SUBL 1 tab po qd SAPHRIS 5 MG SUBL ASENAPINE MALEATE Inactive TRAZODONE HCL 50 MG TABS 1/2 tab po qd prn for anxiety TRAZODONE HCL 50 MG TABS 650473 TRAZODONE HCL Inactive LATUDA 20 MG TABS Take one by mouth daily LATUDA 20 MG TABS LURASIDONE HCL Inactive LISINOPRIL 20 MG TABS 1 tab po qd LISINOPRIL 20 MG TABS 712971 LISINOPRIL Inactive SAPHRIS 10 MG SUBL 1 [...] twice daily BACTRIM DS 800-160 MG TAB 493154 TRIMETHOPRIM-SULFAMETHOXAZOLE Inactive MULTIVITAMINS CAPS Take one by mouth daily MULTIVITAMINS CAPS MULTIPLE VITAMIN Inactive MELATONIN 3 MG CAPS 2 po q hs MELATONIN 3 MG CAPS 494575 MELATONIN Inactive KEFLEX 500 MG ORAL CAPS 1 cap QID by mouth KEFLEX 500 MG ORAL CAPS 070326 CEPHALEXIN Inactive CLINDAMYCIN HCL 150 MG CAPS 1 four times a day CLINDAMYCIN HCL 150 MG CAPS 710370 CLINDAMYCIN HCL Inactive DIFLUCAN 150 MG TAB 1 tablet by mouth daily DIFLUCAN 150 MG TAB 209031 FLUCONAZOLE Inactive PROZAC 20 MG CAP Take one by mouth daily PROZAC 20 MG CAP 554557 FLUOXETINE HCL Inactive IBUPROFEN 600 MG TAB 1 po TID PRN IBUPROFEN 600 MG TAB 233350 IBUPROFEN Inactive VYVANSE 40 MG CAPS 1 daily, VYVANSE 40 MG CAPS LISDEXAMFETAMINE DIMESYLATE Inactive TRAZODONE HCL 100 MG TAB take 1 at bedtime TRAZODONE HCL 100 MG TAB 538313 TRAZODONE HCL Inactive AMITRIPTYLINE HCL 100 MG TAB one at hs AMITRIPTYLINE HCL 100 MG TAB 664924 AMITRIPTYLINE HCL Inactive AMLODIPINE BESYLATE 5 MG TABS 1 tablet by mouth daily AMLODIPINE BESYLATE 5 MG TABS 333908 AMLODIPINE BESYLATE Inactive LATUDA 80 MG TABS Take one by mouth daily LATUDA 80 MG TABS LURASIDONE HCL Inactive SAPHRIS 5 MG SUBL 1 po bid SAPHRIS 5 MG SUBL ASENAPINE MALEATE Inactive PREDNISONE 20 MG TAB 2 tabs daily for 4 days, 1 tab daily for 4 days, 1/2 tab daily for 4 days PREDNISONE 20 MG TAB 355741 PREDNISONE Inactive AMBIEN 5 MG ORAL TABS 1 tab at bedtime AMBIEN 5 MG ORAL TABS 710773 ZOLPIDEM TARTRATE Inactive PROZAC 20 MG ORAL CAPS 1 tab daily PROZAC 20 MG ORAL CAPS 623993 FLUOXETINE HCL Inactive ABILIFY 15 MG ORAL TABS 1 tab daily ABILIFY 15 MG ORAL TABS 095845 ARIPIPRAZOLE Inactive METOPROLOL TARTRATE 50 MG TAB 1 po bid METOPROLOL TARTRATE 50 MG TAB 109157 METOPROLOL TARTRATE Inactive TRAMADOL HCL 50 MG TABS 1-2 po TID PRN Pain TRAMADOL HCL 50 MG TABS 644172 TRAMADOL HCL Inactive PIROXICAM 20 MG CAPS 1 cap po qd PRN Pain PIROXICAM 20 MG CAPS 488796 PIROXICAM Inactive MINIPRESS 2 MG CAPS 4 cap po at night MINIPRESS 2 MG CAPS 040115 PRAZOSIN HCL Inactive MIRALAX PACK 1 po qd PRN Constipation MIRALAX PACK 222802 POLYETHYLENE GLYCOL 3350 Inactive METOPROLOL TARTRATE 25 MG ORAL TABS 1/2 tablet twice daily for heart rate and blood pressure METOPROLOL TARTRATE 25 MG ORAL TABS 878889 METOPROLOL TARTRATE Inactive VALIUM 5 MG TAB Take 1-2 tablets daily VALIUM 5 MG TAB 232824 DIAZEPAM Inactive FLAGYL 500 MG TAB 1 tablet by mouth bid FLAGYL 500 MG TAB 459268 METRONIDAZOLE Inactive DICLOFENAC POTASSIUM TABS Take 1 tablet twice a day (pt. is not sure of the dose.) DICLOFENAC POTASSIUM TABS DICLOFENAC POTASSIUM TABS Inactive ZITHROMAX Z-EARNEST 250 MG TABS 2 today and then 1 daily for 4 days ZITHROMAX Z-EARNEST 250 MG TABS 8517647 AZITHROMYCIN Inactive PREDNISONE 20 MG TABS 2 daily for 5 days then 1 daily for 5 days PREDNISONE 20 MG TABS 351498 PREDNISONE Inactive PROAIR HFA 108 (90 BASE) MCG/ACT AERS 2 puffs four times a day as needed 2015 PROAIR HFA 108 (90 BASE) MCG/ACT AERS ALBUTEROL SULFATE Inactive HYDROCODONE-ACETAMINOPHEN 5-325 MG TABS 1 to 2 four times a day as needed for pain use until can be seen by specialist HYDROCODONE- ACETAMINOPHEN 5-325 MG TABS 921870 HYDROCODONE-ACETAMINOPHEN Inactive TESSALON PERLES 100 MG CAP 1 to 2 tablets by mouth 3 times daily as needed for cough TESSALON PERLES 100 MG CAP 705791 BENZONATATE Inactive CHANTIX STARTING MONTH EARNEST 0.5 [...] twice a day CEFDINIR 300 MG CAPS 306887 CEFDINIR Inactive PREDNISONE 20 MG TAB 2 tabs daily for 3 days, 1 tab daily for 3 days, 1/2 tab daily for 2 days PREDNISONE 20 MG TAB 304759 PREDNISONE Inactive BACTRIM DS 800-160 MG TABS [...] x 10 days KEFLEX 500 MG CAP 320600 CEPHALEXIN Inactive Advance Directives Directive Description Start [...] % 11.6-14.8 platelet count 394 10^3/MM^3 10*3/mm3 412-334 2095/01/11 leukocyte count, blood 13.8 10^3/MM^3 10*3/mm3 4.6-10.2 [...] Panel - Chemistry sodium, serum 139 mmol/L 411-712 4675/12/03 carbon dioxide, venous blood 28.5 mmol/L 21.0-32.0 [...] 5.5 % 4.3-6.0 cholesterol, serum 159 mg/dL 563-425 3240/12/03 triglyceride, serum, fasting 118 mg/dL 30-200 HDL [...] 362 10^3/MM^3 10*3/mm3 142-424 Lab Report: Chlamydia/GC APTIMA/20076 - Lab chlamydia DNA probe NOT DETECTED NOT DETECTED Lab Report: Chlamydia/GC APTIMA/98832 - Microbiology Neisseria gonorrhoeae DNA probe NOT DETECTED NOT DETECTED Lab Report: Comp. Metabolic Panel - Chemistry sodium, serum 140 mmol/L 042-772 1434/08/08 carbon dioxide, venous blood 33.7 mmol/L 21.0-32.0 potassium, serum 5.0 mmol/L 3.5-5.2 chloride, serum 103 mmol/L 98-107 blood glucose 80 mg/dL 65-110 urea nitrogen, blood 13 mg/dL 7-18 creatinine, serum 0.88 mg/dL 0.55-1.30 alanine aminotransferase (SGPT), serum 54 U/L -78 aspartate aminotransferase (SGOT), serum 29 U/L 15-37 calcium, serum 9.7 mg/dL 8.5-10.1 bilirubin, serum, total 0.30 mg/dL 0.00-1.00 sodium, serum 139 mmol/L 998-799 2175/12/22 carbon dioxide, venous blood 26.8 mmol/L 21.0-32.0 potassium, serum 4.2 mmol/L 3.5-5.2 chloride, serum 103 mmol/L 98-107 blood glucose 115 mg/dL 65-110 urea nitrogen, blood 20 mg/dL 7-18 creatinine, serum 0.90 mg/dL 0.55-1.30 alanine aminotransferase (SGPT), serum 38 U/L aspartate aminotransferase (SGOT), serum 19 U/L 15-37 calcium, serum 8.6 mg/dL 8.5-10.1 bilirubin, serum, total 0.30 mg/dL 0.00-1.00 sodium, serum 139 mmol/L 816-584 3513/01/11 carbon dioxide, venous blood 26.6 mmol/L 21.0-32.0 potassium, serum 4.1 mmol/L 3.5-5.2 chloride, serum 100 mmol/L 98-107 blood glucose 86 mg/dL 65-110 urea nitrogen, blood 16 mg/dL 7-18 creatinine, serum 1.00 mg/dL 0.55-1.30 alanine aminotransferase (SGPT), serum 48 U/L -78 aspartate aminotransferase (SGOT), serum 17 U/L 15-37 calcium, serum 9.1 mg/dL 8.5-10.1 bilirubin, serum, total 0.40 mg/dL 0.00-1.00 sodium, serum 142 mmol/L 781-200 1490/06/08 carbon dioxide, venous blood 27.6 mmol/L 21.0-32.0 [...] Rate - Chemistry sodium, serum 139 mmol/L 330-932 4446/12/11 carbon dioxide, venous blood 25.4 mmol/L 21.0-32.0 [...] mg/dL Encounters Code Encounter Date Provider Facility CPT-11593 Level 3 Est. Patient 13:59:59 CDT Luigi Martínez [facility] CPT-03362 Level 3 Est. Patient 18:18:53 CDT Neeraj Collins MD [facility] CPT-31456 Level 3 Est. Patient 15:50:44 CDT Vishal Hui MD [facility] CPT-59673 Level 3 Est. Patient 11:36:17 CDT Ahmet Carbajal MD [facility] CPT-32799 Level 3 Est. Patient 13:29:16 CDT Vishal Hui MD [facility] CPT-96686 Level 3 Est. Patient 14:27:52 CDT Neeraj Collins MD [facility] CPT-73240 Level 3 Est. Patient 08:56:03 CDT Luigi Martínez [facility] CPT-66614 Level 4 Est. Patient 12:11:48 CDT Fabiola Johnson [facility] CPT-83720 Level 3 New Patient 16:53:37 CDT Albert Caldera MD [facility] CPT-53334 Level 3 Est. Patient 11:25:49 CDT Renzo Thornton DO [facility] CPT-16227 Level 3 Est. Patient 15:22:01 CDT Ahmet Carbajal MD [facility] CPT-71299 Level 4 Est. Patient 09:00:51 [employer]YE [employer]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 Vishal Hui MD [facility] CPT-04747 Level 3 Est. 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 Patient 08:41:09 EYE DR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 Vishal Hui MD [facility] CPT-28372 Level 4 Est. Patient 10:19:35 EYE DR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 Vishal Hui MD [facility] CPT-31606 Level 3 Est. Patient 13:35:45 CDT Vishal Hui MD [facility] CPT-21061 Level 4 Est. Patient 10:08:37 CDT Vishal Hui MD [facility]-47552 Level 3 Est. Patient 11:22:10 CDT Vishal Hui MD [facility] CPT-18635 Level 3 Est. Patient 11:03:32 CDT Sahara Rodriguez MD [facility]-78748 Level 3 Est. Patient 09:41:35 CDT Vishal Hui MD [facility]-43189 Level 3 Est. Patient 12:00:41 CDT Neeraj Collins MD [facility]-06261 Level 3 Est. Patient 09:16:24 CDT Vishal Hui MD [facility] CPT-58761 Level 4 Est. Patient 13:59:09 CDT Neeraj Collins MD [facility] CPT-93648 Level 3 Est. Patient 15:19:43 CDT Renzo Thornton DO [facility] CPT-73926 Level 3 Est. Patient 18:10:26 CDT Sahara Rodriguez MD [facility]-08082 Level 3 Est. Patient 14:49:50 CDT Vishal Hui MD [facility] CPT-81260 Level 4 Est. Patient 18:41:46 CDT Neeraj Collins MD [facility] CPT-99756 Level 4 Est. Patient 09:18:38 EYE [employer]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 Vishal Hui MD [facility]-76332 Level 3 Est. Patient 14:43:55 EYE DR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 Vishal Hui MD [facility] CPT-95912 Level 3 Est. Patient 15:26:33 EYE DR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 Sahara Rodriguez MD PhD [facility]-21510 Level 3 Est. Patient 10:32:14 EYE DR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 Vishal Hui MD [facility] CPT-31716 Level 3 Est. Patient 15:12:52 EYE DR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 Vishal Hui MD [facility] CPT-65298 Level 4 Est. Patient 09:19:27 CDT Vishal Hui MD [facility] CPT-09623 Level 3 Est. Patient 15:53:00 CDT Renzo Thornton [facility] CPT-36473 Level 3 Est. Patient 15:50:30 CDT Renzo Thornton [facility] CPT-23545 Level 3 Est. Patient 16:55:24 CDT Vishal Hui MD [facility] Procedures Code Procedure Name Date Entry Date Standard Description CPT-22310 Nexplanon Removal with Reinsertion 14:09:32 CDT CPT-J7307 Nexplanon (Implant) 14:09:32 CDT CPT-OV Office Visit 14:09:32 CDT CPT-78184 UA w micro - LAB USE ONLY 16:21:13 CDT CPT-65283 Wet Mount - LAB USE ONLY 16:21:13 CDT CPT-48906 First Vx - Ix admin for Medicare patients 14:37:47 CDT CPT-35377 Fluzone Preservative Free Intramuscular Suspension 14:37 :47 CDT CPT-42388 Abx/Therapy Injection 13:54:22 CDT CPT-75824 Abx/Therapy Injection 08:47:09 CDT CPT-53156 Abx/Therapy Injection 13:29:56 CDT CPT-44214 Abx/Therapy Injection 08:36:16 CDT CPT-50871 Wet Mount - LAB USE ONLY 17:44:58 CDT CPT-34033 UA w micro - LAB USE ONLY 17:44:58 CDT CPT-73220 CMP - LAB USE ONLY 17:44:58 CDT CPT-50840 Venipuncture Draw Fee 17:44:58 CDT CPT-31845 Cervical Min 4V - XRAY USE ONLY 09:01:40 CDT CPT-00760 Chest 2V Frontal and Lat - XRAY USE ONLY 11:06:31 CDT CPT-38057 EKG Trac and Interp - XRAY USE ONLY 11:31:43 CDT 08/26 CPT-J3420 Vitamin B12 1000mcg (Cyanocobalamin) 08:10:26 [employer]YE 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 04/12 CPT-36719 Abx/Therapy Injection 08:10:26 EYE [employer]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 CPT-G0438 Initial Annual Wellness Exam 19:01:01 EYE [employer]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 CPT-J3420 Vitamin B12 1000mcg (Cyanocobalamin) 16:57:46 CDT 08/14 CPT-60612 Recombivax HB Injection Suspension 5 MCG/0.5ML 08:37:50 EYE [employer]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 CPT-73515 Immunization Single Admin 08:37:50 EYE [employer]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 CPT-J3420 Vitamin B12 1000mcg (Cyanocobalamin) 08:32:16 EYE [employer]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 03/11 CPT-86956 Abx/Therapy Injection 08:32:16 EYE [employer]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 CPT-56544 Chest 2V Frontal and Lat 11:46:38 EYE DR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 CPT-17103 Venipuncture Draw Fee 09:12:45 EYE DR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 CPT-J3420 Vitamin B12 1000mcg (Cyanocobalamin) 08:50:15 EYE [employer]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 02/08 CPT-68420 Abx/Therapy Injection 08:50:15 EYE DR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 CPT-Cryo Cryotherapy 10:19:35 EYE [employer]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 CPT-000 Give Appropriate Flu Vaccine 09:22:16 CDT CPT-J3420 Vitamin B12 1000mcg (Cyanocobalamin) 19:08:57 CDT 01/11 CPT-49525 Abx/Therapy Injection 19:08:57 CDT CPT-J3420 Vitamin B12 1000mcg (Cyanocobalamin) 08:19:08 CDT 12/11 CPT-24203 Abx/Therapy Injection 08:19:08 CDT CPT-J3420 Vitamin B12 1000mcg (Cyanocobalamin) 14:48:00 CDT 11/09 CPT-85103 Abx/Therapy Injection 14:47:59 CDT CPT-J3420 Vitamin B12 1000mcg (Cyanocobalamin) 08:34:04 CDT 10/09 CPT-83432 Abx/Therapy Injection 08:34:04 CDT CPT-J3420 Vitamin B12 1000mcg (Cyanocobalamin) 09:18:52 CDT 09/11 CPT-17839 Abx/Therapy Injection 09:18:52 CDT CPT-J3420 Vitamin B12 1000mcg (Cyanocobalamin) 08:35:44 CDT 09/04 CPT-33860 Abx/Therapy Injection 08:35:44 CDT CPT-67978 Immunization Single Admin 11:07:16 CDT CPT-97907 Hepatitis B adult IM 11:07:16 CDT CPT-J3420 Vitamin B12 1000mcg (Cyanocobalamin) 11:00:49 CDT 08/28 CPT-J1040 Depo Medrol 80 mg (Methyl Prednisolone Acetate) 11:00: 49 CDT CPT-53774 Abx/Therapy Injection 11:00:49 CDT CPT-J1040 Depo Medrol 80 mg (Methyl Prednisolone Acetate) 09:16: 23 CDT CPT-J3420 Vitamin B12 1000mcg (Cyanocobalamin) 08:27:05 CDT 08/20 CPT-83019 Abx/Therapy Injection 08:27:05 CDT CPT-31748 Recombivax HB Injection Suspension 5 MCG/0.5ML 10:00:41 CDT CPT-89980 Administration single or combination vaccine inc oral 10 :00:41 CDT CPT-13493 Sono transvag pelvis non OB uterus ovaries cervix 16:36: 57 CDT CPT-46059 LS spine comp w obliq 09:50:55 [employer]YE [employer]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 CPT-69816 Abd compl w upright 09:50:55 [employer]YE [employer]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 CPT-J1100 Decadron 4mg (Dexamethasone) 15:51:24 EYE [employer]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 CPT-J1030 Depo Medrol 40 mg (Methyl Prednisolone Acetate) 15:51: 24 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
--- OUTSIDE RECORDS SUMMARY | 2016-11-05 02:01 | XMS REPORT ---
Author Author [facility] Medical Staff Organization [facility] Address [address] [place], [place] [id number] Phone [phone] Care Team Providers Care Digital Asset Manager Name Role Phone TINO ABRAMS MD PP [phone] Summary purpose TRANSITION OF CARE AUTO GENERATION [...] no :00 Urination normal :00 Quality sym/unlabored : Cough absent : Secretions no : Breath Sounds RUL clear :00 Breath Sounds RML clear :00 Breath Sounds RLL clear :00 Breath Sounds BENJA clear :00 Breath Sounds LLL clear :00 Airway natural : Oxygen no :35 Temp >100.4 no : Temp <96.8 no : Chills with rigors no : HR > 90bpm no :00 Respirations > 20 no : Systolic <90 no : headache stiff neck no : Nursing Note pt resting no needs :30 [...] Rev yes PNE Vac yes Flu Vac 2013
--- OUTSIDE RECORDS SUMMARY | 2016-11-05 02:04 | XMS REPORT | Clinical Summary ---
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 Active Suzan Boo [...] MD Health screening ICD-V70.0 Inactive Suzan Boo SALES CLERK [employer] Sinus tachycardia ICD-427.89 Inactive Suzan Boo SALES CLERK [employer] Smoker/tobacco use disorder-smoking cessation discussed ICD-305.1 Inactive Vishal Hui MD Abdominal pain ICD-789.00 Inactive iVshal Hui MD Cellulitis ICD-682.9 Inactive Vishal Hui [...] a day as needed for cough BENZONATATE 55341001853 No Longer Active Suzan Boo APRN Active BACTRIM DS 800-160 MG TABS 1 twice a day SULFAMETHOXAZOLE-TRIMETHOPRIM 48685962857 No Longer Active Suzan Boo APRN Active DIFLUCAN 150 MG TABS 1 by mouth for yeast FLUCONAZOLE 57971651556 No Longer Active Suzan Boo APRN Active EQ NICOTINE 21 MG/24HR TRANS PT24 Apply daily to stop smoking NICOTINE 90290125287 No Longer Active Suzan Boo APRN Active PREDNISONE 10 MG TABS 2 daily for 5 days then 1 daily for 5 days PREDNISONE 79154625944 No Longer Active Suzan Boo APRN Active LEVAQUIN 500 MG TABS 1 daily for infection LEVOFLOXACIN 60395420794 No Longer Active Suzan Boo APRN Active TROPICAMIDE 0.5 % OPHTH SOLN 1 drop PRN eye spasms TROPICAMIDE 25703887125 No Longer Active Suzan Boo APRN Active PREDNISONE 20 MG TAB 1 tablet daily x 4 days PREDNISONE 58957966213 No Longer Active Suzan Boo APRN Active ACETAMINOPHEN-CODEINE 120-12 MG/5ML SOLN 5 ml by mouth every 4-6 hours if needed for cough ACETAMINOPHEN-CODEINE 80912488207 No Longer Active Suzan Boo APRN Active KEFLEX 500 MG CAP 1 po qid CEPHALEXIN 45380887960 No Longer Active Suzan Boo APRN Active FLOVENT HFA 110 MCG/ACT AERO 2 puffs inhaled b.i.d. FLUTICASONE PROPIONATE HFA 08107385868 Active Renzo Thornton DO Active RISPERDAL 4 MG ORAL TABS 1 tab at bedtime RISPERIDONE 03869601047 Active Samantha Rothman RMA Active ZOFRAN 4 MG TABS 1 po q6hr PRN Nausea ONDANSETRON HCL No Longer Active Suzan Boo APRN Active FLUTICASONE PROPIONATE 50 MCG/ACT SUSP 2 sprays each nostril daily before bed. FLUTICASONE PROPIONATE 29121843171 No Longer Active Suzan Boo APRN Active ASPIRIN 325 MG ORAL TABS 1 tab q.d ASPIRIN 02432056141 No Longer Active Suzan Boo APRN Active HALOPERIDOL 10 MG ORAL TABS 1 tab q.d HALOPERIDOL 51408183205 No Longer Active Suzan Boo APRN Active GUAIFENESIN-CODEINE 100-10 MG/5ML SYRP 5ml every 4 to 6 hours as needed for cough GUAIFENESIN-CODEINE 61148280376 No Longer Active Suzan Boo APRN Active ZITHROMAX Z-EARNEST 250 MG TABS 2 today and then 1 daily for 4 days AZITHROMYCIN 27543883729 No Longer Active Suzan Boo APRN Active CLONAZEPAM 1 MG ORAL TABS 1 twice a day and an additional 1 tablet every other day as needed for pseudoseizures or anxiety CLONAZEPAM 94156658498 Active Ahmet Carbajal MD Active HYDROCODONE-ACETAMINOPHEN 5-325 MG ORAL TABS 1 tab two times a day HYDROCODONE-ACETAMINOPHEN 23015048092 No Longer Active Ahmet Carbajal MD Active LAMICTAL 100 MG ORAL TABS 1 tab 2 times qd. LAMOTRIGINE 17270396586 Active Ahmet Carbajal MD Active PREDNISONE 20 MG TABS 2 daily for 5 days then 1 daily for 5 days PREDNISONE 79872803161 No Longer Active Ahmet Carbajal MD Active FLUTICASONE PROPIONATE 50 MCG/ACT SUSP 1 to 2 sprays each nostril daily for allergies FLUTICASONE PROPIONATE 26347616919 Active Tila Valenzuela Active BENADRYL 25 MG CAP 4 po at bedtime for insomnia DIPHENHYDRAMINE HCL 70327997993 No Longer Active Ahmet Carbajal MD Active ADVAIR DISKUS 250-50 MCG/DOSE INH AEPB 1 puff twice a day for asthma FLUTICASONE-SALMETEROL 97910336534 No Longer Active Ahmet Carbajal MD Active KLONOPIN 1 MG ORAL TABS 1 tab po TID CLONAZEPAM 97910013218 No Longer Active Ahmet Carbajal MD Active ABILIFY MAINTENA 400 MG IM SUSR 400mg injection every 26 days ARIPIPRAZOLE 94423711496 No Longer Active Ahmet Carbajal MD Active TRAMADOL HCL 50 MG TABS 1/2-1 tab TID PRN TRAMADOL HCL 62192472078 No Longer Active Ahmet Carbajal MD Active BACTRIM DS 800-160 MG TABS 1 twice a day SULFAMETHOXAZOLE- TRIMETHOPRIM 22407530175 No Longer Active Ahmet Carbajal MD Active PROAIR HFA 108 (90 BASE) MCG/ACT AERS 2 puffs four times a day as needed 2015 ALBUTEROL SULFATE 25702223774 Active Ahmet Carbajal MD Active MONISTAT 7 COMBO PACK WOODROW 100 & 2 MG-% (9GM) VAG KIT 1 applicatorful per vagina q pm x 7 MICONAZOLE NITRATE 31412828341 No Longer Active Ahmet Carbajal MD Active FLAGYL 500 MG TAB 1 tablet by mouth bid METRONIDAZOLE 85018866573 No Longer Active Ahmet Carbajal MD Active OXYCODONE HCL ER 10 MG ORAL T12A 1/2 tab by mouth every 4 hours prn OXYCODONE HCL 10105854530 No Longer Active Ahmet Carbajal MD Active METHYLPREDNISOLONE 4 MG ORAL TABS po daily METHYLPREDNISOLONE 94448010663 No Longer Active Ahmet Carbajal MD Active LEVOFLOXACIN 500 MG ORAL TABS po daily LEVOFLOXACIN 51783320754 No Longer Active Ahmet Carbajal MD Active VIIBRYD 10 MG ORAL TABS Take 1 tablet once a day VILAZODONE HCL 91848210341 No Longer Active Ahmet Carbajal MD Active TOPAMAX 50 MG ORAL TABS 1 tab twice daily TOPIRAMATE 22666720910 No Longer Active Ahmet Carbajal MD Active DICLOFENAC SODIUM 50 MG TBEC 1 tablet by mouth four times daily PRN Pain 2015 DICLOFENAC SODIUM 29754151004 No Longer Active Ahmet Carbajal MD Active ADZENYS XR-ODT 6.3 MG ORAL TBED 1 tab po daily for ADHD AMPHETAMINE 60178730330 No Longer Active Ahmet Carbajal MD Active CHANTIX 1 MG TABS 1 twice a day to help quit smoking VARENICLINE TARTRATE 75063317165 No Longer Active Dipika Burgos MD Active CHANTIX STARTING MONTH EARNEST 0.5 MG X 11 & 1 MG X 42 TABS take as directed 2015 VARENICLINE TARTRATE 81441729609 No Longer Active Dipika Burgos MD Active TESSALON PERLES 100 MG CAP 1 to 2 tablets by mouth 3 times daily as needed for cough BENZONATATE 63274709712 No Longer Active Luigi Martínez SALES CLERK [employer] Active IMITREX 50 MG ORAL TABS 0.5 po x 1 PRN Headache. May repeat dose x 1 in 2 hours if needed SUMATRIPTAN SUCCINATE 73210085688 Active Ahmet Carbajal MD Active HYDROCODONE-ACETAMINOPHEN 5-325 MG TABS 1 to 2 four times a day as needed for pain use until can be seen by specialist HYDROCODONE- ACETAMINOPHEN 88320950564 No Longer Active Vishal Hui MD Active PROAIR HFA 108 (90 BASE) MCG/ACT AERS 2 puffs four times a day as needed 2015 ALBUTEROL SULFATE 37508262067 No Longer Active Vishal Hui MD Active PREDNISONE 20 MG TABS 2 daily for 5 days then 1 daily for 5 days PREDNISONE 66817654966 No Longer Active Vsihal Hui MD Active ZITHROMAX Z-EARNEST 250 MG TABS 2 today and then 1 daily for 4 days AZITHROMYCIN 69789520065 No Longer Active Vishal Hui MD Active DICLOFENAC POTASSIUM TABS Take 1 tablet twice a day (pt. is not sure of the dose.) DICLOFENAC POTASSIUM TABS 03421556842 No Longer Active Vishal Hui MD Active VERAPAMIL HCL ER 120 MG ORAL CR-TABS Take 1 tablet by mouth twice a day. VERAPAMIL HCL 12701039472 Active Vishal Hui MD Active FLAGYL 500 MG TAB 1 tablet by mouth bid METRONIDAZOLE 69752178623 No Longer Active Vishal Hui MD Active VALIUM 5 MG TAB Take 1-2 tablets daily DIAZEPAM 14232581938 No Longer Active Fabiola Johnson APRN Active METOPROLOL TARTRATE 25 MG ORAL TABS 1/2 tablet twice daily for heart rate and blood pressure METOPROLOL TARTRATE 72772062605 No Longer Active Fabiola Johnson APRN Active MIRALAX ORAL POWD 17GMS DAILY IN WATER POLYETHYLENE GLYCOL 3350 67080145851 Active TAMARA Casey Active MIRALAX PACK 1 po qd PRN Constipation POLYETHYLENE GLYCOL 3350 07316372866 No Longer Active Ahmet Carbajal MD Active MINIPRESS 2 MG CAPS 4 cap po at night PRAZOSIN HCL 05070126924 No Longer Active Ahmet Carbajal MD Active PIROXICAM 20 MG CAPS 1 cap po qd PRN Pain PIROXICAM 66566095728 No Longer Active Ahmet Carbajal MD Active TRAMADOL HCL 50 MG TABS 1-2 po TID PRN Pain TRAMADOL HCL 92430601340 No Longer Active Ahmet Carbajal MD Active METOPROLOL TARTRATE 50 MG TAB 1 po bid METOPROLOL TARTRATE 66231479601 No Longer Active Ahmet Carbajal MD Active ABILIFY 15 MG ORAL TABS 1 tab daily ARIPIPRAZOLE 94087020401 No Longer Active Ahmet Carbajal MD Active PROZAC 20 MG ORAL CAPS 1 tab daily FLUOXETINE HCL 66145088780 No Longer Active Ahmet Carbajal MD Active AMBIEN 5 MG ORAL TABS 1 tab at bedtime ZOLPIDEM TARTRATE 82518910542 No Longer Active Ahmet Carbajal MD Active PREDNISONE 20 MG TAB 2 tabs daily for 4 days, 1 tab daily for 4 days, 1/2 tab daily for 4 days PREDNISONE 92299149037 No Longer Active Ahmet Carbajal MD Active KEFLEX 500 MG CAP 1 po TID x 10 days CEPHALEXIN 38267950356 No Longer Active Vishal Hui MD Active SAPHRIS 5 MG SUBL 1 po bid ASENAPINE MALEATE 04659496684 No Longer Active Pacollina Mauricio SALES CLERK [employer] Active LATUDA 80 MG TABS Take one by mouth daily LURASIDONE HCL 87094546725 No Longer Active Jillina Fralebron SALES CLERK [employer] Active AMLODIPINE BESYLATE 5 MG TABS 1 tablet by mouth daily AMLODIPINE BESYLATE 74117937913 No Longer Active Pacollina Mauricio SALES CLERK [employer] Active AMITRIPTYLINE HCL 100 MG TAB one at hs AMITRIPTYLINE HCL 40365457305 No Longer Active Vishal Hui MD Active TRAZODONE HCL 100 MG TAB take 1 at bedtime TRAZODONE HCL 49012596462 No Longer Active Vishal Hui MD Active VYVANSE 40 MG CAPS 1 daily, LISDEXAMFETAMINE DIMESYLATE 60463067981 No Longer Active Vishal Hui MD Active IBUPROFEN 600 MG TAB 1 po TID PRN IBUPROFEN 26740285602 No Longer Active Vishal Hui MD Active PROZAC 20 MG CAP Take one by mouth daily FLUOXETINE HCL 16750907584 No Longer Active Vishal Hui MD Active BACTRIM DS 800-160 MG TABS 1 pill by mouth twice daily SULFAMETHOXAZOLE-TRIMETHOPRIM 20140363983 No Longer Active Sahara Rodriguez MD PhD Active DIFLUCAN 150 MG TAB 1 tablet by mouth daily FLUCONAZOLE 81311214799 No Longer Active Vishal Hui MD Active TIZANIDINE HCL 4 MG TABS 1 po q6hr PRN Muscle Spasm/Back Pain TIZANIDINE HCL 74140471624 Active Vishal Hui MD Active CLINDAMYCIN HCL 150 MG CAPS 1 four times a day CLINDAMYCIN HCL 36015252594 No Longer Active Neeraj Collins MD Active KEFLEX 500 MG ORAL CAPS 1 cap QID by mouth CEPHALEXIN 47238595396 No Longer Active Neeraj Collins MD Active DIFLUCAN 150 MG TABS 1 pill every other day x 2 doses FLUCONAZOLE 52759444556 No Longer Active Sahara Rodriguez MD PhD Active MELATONIN 3 MG CAPS 2 po q hs MELATONIN 26494196154 No Longer Active Sahara Rodriguez MD PhD Active MULTIVITAMINS CAPS Take one by mouth daily MULTIPLE VITAMIN 12924227541 No Longer Active Sahara Rodriguez MD PhD Active BACTRIM DS 800-160 MG TAB 1 tab by mouth twice daily TRIMETHOPRIM-SULFAMETHOXAZOLE 68901270496 No Longer Active Sahara Rodriguez MD PhD Active [employer] PROBIOTIC ORAL CHEW 2 daily po PROBIOTIC PRODUCT 99940166336 No Longer Active Sahara Rodriguez MD PhD Active BACTRIM DS 800-160 MG TABS 1 po BID x 7 days SULFAMETHOXAZOLE-TRIMETHOPRIM 43879006825 No Longer Active Vishal Hui MD Active CHANTIX STARTING MONTH EARNEST 0.5 MG X 11 & 1 MG X 42 TABS 0.5mg daily for 3 days , then 0.5mg BID for 4 days, then 1mg BID VARENICLINE TARTRATE 45017014673 No Longer Active TAMARA Gray Active VERAPAMIL HCL CR 120 MG TAB CR 1 po bid VERAPAMIL HCL 22008582688 No Longer Active Vishal Hui MD Active METOPROLOL SUCCINATE 50 MG TB24 1 tablet by mouth daily METOPROLOL SUCCINATE 76143617205 No Longer Active Vishal Hui MD Active SAPHRIS 10 MG SUBL 1 tab po bid ASENAPINE MALEATE 07232206509 No Longer Active Vishal Hui MD Active LISINOPRIL 20 MG TABS 1 tab po qd LISINOPRIL 07683390075 No Longer Active Vishal Hui MD Active LATUDA 20 MG TABS Take one by mouth daily LURASIDONE HCL 97441902983 No Longer Active Vishal Hui MD Active TRAZODONE HCL 50 MG TABS 1/2 tab po qd prn for anxiety TRAZODONE HCL 54297424089 No Longer Active Vishal Hui MD Active OMEPRAZOLE 20 MG TBEC 1 po q a.m. 30min prior to first food intake OMEPRAZOLE 94775192642 Active TAMARA Casey Active RANITIDINE HCL 150 MG CAPS 1 twice a day RANITIDINE HCL 18400122245 Active Jillina Frazell SALES CLERK [employer] Active LINZESS 290 MCG CAPS Take one by mouth daily LINACLOTIDE 51808005475 No Longer Active Vishal Hui MD Active SAPHRIS 5 MG SUBL 1 tab po qd ASENAPINE MALEATE 56496030772 No Longer Active Vishal Hui MD Active ZALEPLON 10 MG CAPS 1 cap po every other night ZALEPLON 50323974754 No Longer Active Vishal Hui MD Active LYRICA 50 MG CAPS 1 tab po TID PREGABALIN 97802406571 No Longer Active Vishal Hui MD Active LORATADINE 10 MG TABS 1 tab po qd LORATADINE 63532733098 No Longer Active Vishal Hui MD Active VERAPAMIL HCL ER 180 MG CR-TABS 1 tab po bid VERAPAMIL HCL 62125409274 No Longer Active Vishal Hui MD Active MIRALAX POWD 1 capfull once daily POLYETHYLENE GLYCOL 3350 39701400768 No Longer Active Vishal Hui MD Active PREDNISONE 20 MG TABS 1 tab po qd PREDNISONE 79365565990 No Longer Active Renzo Thornton DO Active LEVOFLOXACIN 500 MG TABS 1 tab po qd LEVOFLOXACIN 23841183017 No Longer Active Renzo Thornton DO Active BUSPIRONE HCL 15 MG TABS 1 tab po TID BUSPIRONE HCL 05311961209 No Longer Active Renzo Thornton DO Active BENZTROPINE MESYLATE 1 MG TABS 1 tab po qd BENZTROPINE MESYLATE 79269650430 No Longer Active Renzo Thornton DO Active ATENOLOL 25 MG TABS 1 tab po qd ATENOLOL 17298348819 No Longer Active Renzo Thornton DO Active ESCITALOPRAM OXALATE 20 MG TABS 1 tab po qd ESCITALOPRAM OXALATE 62703342111 No Longer Active Renzo Thornton DO Active ADVAIR DISKUS 250-50 MCG/DOSE AEPB 1 puff BID FLUTICASONE-SALMETEROL 94008570952 No Longer Active Renzo Thornton DO Active PREDNISONE 20 MG TAB 2 tabs daily for 3 days, 1 tab daily for 3 days, 1/2 tab daily for 2 days PREDNISONE 09287030011 No Longer Active Vishal Hui MD Active CEFDINIR 300 MG CAPS by mouth twice a day CEFDINIR 61697178364 No Longer Active Vishal Hui MD Active LANSOPRAZOLE 30 MG CPDR 1 cap po qd LANSOPRAZOLE 74856729628 No Longer Active Vishal Hui MD Active BACLOFEN 20 MG TABS 1 tab po tid BACLOFEN 57580413981 No Longer Active Vishal Hui MD Active ADVAIR DISKUS 250-50 MCG/DOSE AEPB 1 puff BID ADVAIR DISKUS 250-50 MCG/DOSE AEPB FLUTICASONE-SALMETEROL Inactive ESCITALOPRAM OXALATE 20 MG TABS 1 tab po qd ESCITALOPRAM OXALATE 20 MG TABS 707179 ESCITALOPRAM OXALATE Inactive ATENOLOL 25 MG TABS 1 tab po qd ATENOLOL 25 MG TABS 999730 ATENOLOL Inactive BENZTROPINE MESYLATE 1 MG TABS 1 tab po qd BENZTROPINE MESYLATE 1 MG TABS 128396 BENZTROPINE MESYLATE Inactive BUSPIRONE HCL 15 MG TABS 1 tab po TID BUSPIRONE HCL 15 MG TABS 495786 BUSPIRONE HCL Inactive LEVOFLOXACIN 500 MG TABS 1 tab po qd LEVOFLOXACIN 500 MG TABS 872131 LEVOFLOXACIN Inactive PREDNISONE 20 MG TABS 1 tab po qd PREDNISONE 20 MG TABS 317010 PREDNISONE Inactive MIRALAX POWD 1 capfull once daily MIRALAX POWD 658055 POLYETHYLENE GLYCOL 3350 Inactive VERAPAMIL HCL ER 180 MG CR-TABS 1 tab po bid VERAPAMIL HCL ER 180 MG CR-TABS VERAPAMIL HCL Inactive LORATADINE 10 MG TABS 1 tab po qd LORATADINE 10 MG TABS 443400 LORATADINE Inactive LYRICA 50 MG CAPS 1 tab po TID LYRICA 50 MG CAPS PREGABALIN Inactive ZALEPLON 10 MG CAPS 1 cap po every other night ZALEPLON 10 MG CAPS 285880 ZALEPLON Inactive SAPHRIS 5 MG SUBL 1 tab po qd SAPHRIS 5 MG SUBL ASENAPINE MALEATE Inactive TRAZODONE HCL 50 MG TABS 1/2 tab po qd prn for anxiety TRAZODONE HCL 50 MG TABS 715535 TRAZODONE HCL Inactive LATUDA 20 MG TABS Take one by mouth daily LATUDA 20 MG TABS LURASIDONE HCL Inactive LISINOPRIL 20 MG TABS 1 tab po qd LISINOPRIL 20 MG TABS 216124 LISINOPRIL Inactive SAPHRIS 10 MG SUBL 1 [...] twice daily BACTRIM DS 800-160 MG TAB 717347 TRIMETHOPRIM-SULFAMETHOXAZOLE Inactive MULTIVITAMINS CAPS Take one by mouth daily MULTIVITAMINS CAPS MULTIPLE VITAMIN Inactive MELATONIN 3 MG CAPS 2 po q hs MELATONIN 3 MG CAPS 605731 MELATONIN Inactive KEFLEX 500 MG ORAL CAPS 1 cap QID by mouth KEFLEX 500 MG ORAL CAPS 000605 CEPHALEXIN Inactive CLINDAMYCIN HCL 150 MG CAPS 1 four times a day CLINDAMYCIN HCL 150 MG CAPS 953951 CLINDAMYCIN HCL Inactive DIFLUCAN 150 MG TAB 1 tablet by mouth daily DIFLUCAN 150 MG TAB 046312 FLUCONAZOLE Inactive PROZAC 20 MG CAP Take one by mouth daily PROZAC 20 MG CAP 701377 FLUOXETINE HCL Inactive IBUPROFEN 600 MG TAB 1 po TID PRN IBUPROFEN 600 MG TAB 575638 IBUPROFEN Inactive VYVANSE 40 MG CAPS 1 daily, VYVANSE 40 MG CAPS LISDEXAMFETAMINE DIMESYLATE Inactive TRAZODONE HCL 100 MG TAB take 1 at bedtime TRAZODONE HCL 100 MG TAB 719476 TRAZODONE HCL Inactive AMITRIPTYLINE HCL 100 MG TAB one at hs AMITRIPTYLINE HCL 100 MG TAB 860062 AMITRIPTYLINE HCL Inactive AMLODIPINE BESYLATE 5 MG TABS 1 tablet by mouth daily AMLODIPINE BESYLATE 5 MG TABS 835373 AMLODIPINE BESYLATE Inactive LATUDA 80 MG TABS Take one by mouth daily LATUDA 80 MG TABS LURASIDONE HCL Inactive SAPHRIS 5 MG SUBL 1 po bid SAPHRIS 5 MG SUBL ASENAPINE MALEATE Inactive PREDNISONE 20 MG TAB 2 tabs daily for 4 days, 1 tab daily for 4 days, 1/2 tab daily for 4 days PREDNISONE 20 MG TAB 764502 PREDNISONE Inactive AMBIEN 5 MG ORAL TABS 1 tab at bedtime AMBIEN 5 MG ORAL TABS 790768 ZOLPIDEM TARTRATE Inactive PROZAC 20 MG ORAL CAPS 1 tab daily PROZAC 20 MG ORAL CAPS 980055 FLUOXETINE HCL Inactive ABILIFY 15 MG ORAL TABS 1 tab daily ABILIFY 15 MG ORAL TABS 481875 ARIPIPRAZOLE Inactive METOPROLOL TARTRATE 50 MG TAB 1 po bid METOPROLOL TARTRATE 50 MG TAB 809367 METOPROLOL TARTRATE Inactive TRAMADOL HCL 50 MG TABS 1-2 po TID PRN Pain TRAMADOL HCL 50 MG TABS 960358 TRAMADOL HCL Inactive PIROXICAM 20 MG CAPS 1 cap po qd PRN Pain PIROXICAM 20 MG CAPS 772777 PIROXICAM Inactive MINIPRESS 2 MG CAPS 4 cap po at night MINIPRESS 2 MG CAPS 867820 PRAZOSIN HCL Inactive MIRALAX PACK 1 po qd PRN Constipation MIRALAX PACK 340456 POLYETHYLENE GLYCOL 3350 Inactive METOPROLOL TARTRATE 25 MG ORAL TABS 1/2 tablet twice daily for heart rate and blood pressure METOPROLOL TARTRATE 25 MG ORAL TABS 171463 METOPROLOL TARTRATE Inactive VALIUM 5 MG TAB Take 1-2 tablets daily VALIUM 5 MG TAB 873531 DIAZEPAM Inactive FLAGYL 500 MG TAB 1 tablet by mouth bid FLAGYL 500 MG TAB 751273 METRONIDAZOLE Inactive DICLOFENAC POTASSIUM TABS Take 1 tablet twice a day (pt. is not sure of the dose.) DICLOFENAC POTASSIUM TABS DICLOFENAC POTASSIUM TABS Inactive ZITHROMAX Z-EARNEST 250 MG TABS 2 today and then 1 daily for 4 days ZITHROMAX Z-EARNEST 250 MG TABS 3121607 AZITHROMYCIN Inactive PREDNISONE 20 MG TABS 2 daily for 5 days then 1 daily for 5 days PREDNISONE 20 MG TABS 591141 PREDNISONE Inactive PROAIR HFA 108 (90 BASE) MCG/ACT AERS 2 puffs four times a day as needed 2015 PROAIR HFA 108 (90 BASE) MCG/ACT AERS ALBUTEROL SULFATE Inactive HYDROCODONE-ACETAMINOPHEN 5-325 MG TABS 1 to 2 four times a day as needed for pain use until can be seen by specialist HYDROCODONE- ACETAMINOPHEN 5-325 MG TABS 209619 HYDROCODONE-ACETAMINOPHEN Inactive TESSALON PERLES 100 MG CAP 1 to 2 tablets by mouth 3 times daily as needed for cough TESSALON PERLES 100 MG CAP 488696 BENZONATATE Inactive CHANTIX STARTING MONTH EARNEST 0.5 [...] Pain 2015 DICLOFENAC SODIUM 50 MG TBEC 480095 DICLOFENAC SODIUM Inactive TOPAMAX 50 MG ORAL TABS 1 tab twice daily TOPAMAX 50 MG ORAL TABS 729684 TOPIRAMATE Inactive VIIBRYD 10 MG ORAL TABS Take 1 tablet once a day VIIBRYD 10 MG ORAL TABS VILAZODONE HCL Inactive LEVOFLOXACIN 500 MG ORAL TABS po daily LEVOFLOXACIN 500 MG ORAL TABS 696738 LEVOFLOXACIN Inactive METHYLPREDNISOLONE 4 MG ORAL TABS po daily METHYLPREDNISOLONE 4 MG ORAL TABS 742755 METHYLPREDNISOLONE Inactive OXYCODONE HCL ER 10 MG ORAL T12A 1/2 tab by mouth every 4 hours prn OXYCODONE HCL ER 10 MG ORAL T12A OXYCODONE HCL Inactive FLAGYL 500 MG TAB 1 tablet by mouth bid FLAGYL 500 MG TAB 448131 METRONIDAZOLE Inactive MONISTAT 7 COMBO PACK WOODROW 100 & 2 MG-% (9GM) VAG KIT 1 applicatorful per vagina q pm x 7 MONISTAT 7 COMBO PACK WOODROW 100 & 2 MG-% (9GM) VAG KIT MICONAZOLE NITRATE Inactive BACTRIM DS 800-160 MG TABS 1 twice a day BACTRIM DS 800-160 MG TABS 622633 SULFAMETHOXAZOLE-TRIMETHOPRIM Inactive TRAMADOL HCL 50 MG TABS 1/2-1 tab TID PRN TRAMADOL HCL 50 MG TABS 897802 TRAMADOL HCL Inactive ABILIFY MAINTENA 400 MG IM SUSR 400mg injection every 26 days ABILIFY MAINTENA 400 MG IM SUSR ARIPIPRAZOLE Inactive KLONOPIN 1 MG ORAL TABS 1 tab po TID KLONOPIN 1 MG ORAL TABS 850300 CLONAZEPAM Inactive ADVAIR DISKUS 250-50 MCG/DOSE INH AEPB 1 puff twice a day for asthma ADVAIR DISKUS 250-50 MCG/DOSE INH AEPB FLUTICASONE- SALMETEROL Inactive BENADRYL 25 MG CAP 4 po at bedtime for insomnia BENADRYL 25 MG CAP DIPHENHYDRAMINE HCL Inactive PREDNISONE 20 MG TABS 2 daily for 5 days then 1 daily for 5 days PREDNISONE 20 MG TABS 284881 PREDNISONE Inactive HYDROCODONE-ACETAMINOPHEN 5-325 MG ORAL TABS 1 tab two times a day HYDROCODONE-ACETAMINOPHEN 5-325 MG ORAL TABS 399804 HYDROCODONE-ACETAMINOPHEN Inactive ZITHROMAX Z-EARNEST 250 MG TABS 2 today and then 1 daily for 4 days ZITHROMAX Z-EARNEST 250 MG TABS 5899250 AZITHROMYCIN Inactive GUAIFENESIN-CODEINE 100-10 MG/5ML SYRP 5ml every 4 to 6 hours as needed for cough GUAIFENESIN-CODEINE 100-10 MG/5ML SYRP 266568 GUAIFENESIN-CODEINE Inactive HALOPERIDOL 10 MG ORAL TABS 1 tab q.d HALOPERIDOL 10 MG ORAL TABS 806478 HALOPERIDOL Inactive ASPIRIN 325 MG ORAL TABS 1 tab q.d ASPIRIN 325 MG ORAL TABS 751153 ASPIRIN Inactive FLUTICASONE PROPIONATE 50 MCG/ACT SUSP 2 sprays each nostril daily before bed. FLUTICASONE PROPIONATE 50 MCG/ACT SUSP 2664186 FLUTICASONE PROPIONATE Inactive ZOFRAN 4 MG TABS 1 po q6hr PRN Nausea ZOFRAN 4 MG TABS 754960 ONDANSETRON HCL Inactive KEFLEX 500 MG CAP 1 po qid KEFLEX 500 MG CAP 112415 CEPHALEXIN Inactive ACETAMINOPHEN-CODEINE 120-12 MG/5ML SOLN 5 ml by mouth every 4-6 hours if needed for cough ACETAMINOPHEN-CODEINE 120-12 MG/5ML SOLN 529452 ACETAMINOPHEN-CODEINE Inactive PREDNISONE 20 MG TAB 1 tablet daily x 4 days PREDNISONE 20 MG TAB 249159 PREDNISONE Inactive TROPICAMIDE 0.5 % OPHTH SOLN 1 drop PRN eye spasms TROPICAMIDE 0.5 % OPHTH SOLN 031024 TROPICAMIDE Inactive LEVAQUIN 500 MG TABS 1 daily for infection LEVAQUIN 500 MG TABS 702051 LEVOFLOXACIN Inactive PREDNISONE 10 MG TABS 2 [...] twice a day CEFDINIR 300 MG CAPS 555003 CEFDINIR Inactive PREDNISONE 20 MG TAB 2 tabs daily for 3 days, 1 tab daily for 3 days, 1/2 tab daily for 2 days PREDNISONE 20 MG TAB 048437 PREDNISONE Inactive BACTRIM DS 800-160 MG TABS 1 po BID x 7 days BACTRIM DS 800-160 MG TABS 672712 SULFAMETHOXAZOLE-TRIMETHOPRIM Inactive DIFLUCAN 150 MG TABS 1 pill every other day x 2 doses DIFLUCAN 150 MG TABS 19751126 FLUCONAZOLE Inactive BACTRIM DS 800-160 MG TABS 1 pill by mouth twice daily BACTRIM DS 800-160 MG TABS 892884 SULFAMETHOXAZOLE-TRIMETHOPRIM Inactive KEFLEX 500 MG CAP 1 po TID x 10 days KEFLEX 500 MG CAP 258212 CEPHALEXIN Inactive Advance Directives Directive Description Start [...] % 11.0-15.0 platelet count 443 THOUSAND/UL 10*3/mm3 865-305 1772/03/01 mean platelet volume 8.2 fL 7.5-12.5 Lab [...] 369 10^3/MM^3 10*3/mm3 142-424 Lab Report: Chlamydia/GC APTIMA/[id number] - Lab chlamydia DNA probe NOT DETECTED NOT DETECTED Lab Report: Chlamydia/GC APTIMA/[id number] - Microbiology Neisseria gonorrhoeae DNA probe NOT DETECTED NOT DETECTED Lab Report: Chlamydia/GC APTIMA/[id number], Urinalysis, Complete, with Reflex ... - Lab chlamydia DNA probe NOT DETECTED NOT DETECTED Lab Report: Chlamydia/GC APTIMA/[id number], Urinalysis, Complete, with Reflex ... - Microbiology Neisseria gonorrhoeae DNA probe NOT DETECTED NOT DETECTED Lab Report: Chlamydia/GC APTIMA/[id number], Urinalysis, Complete, with Reflex ... - Urinalysis microalbumin/total urine volume 2 mg/L Units converted. See lab report for original value. microalbumin/creatinine ratio, urine 9 MCG/MG CREAT mg/L <30 Lab Report: Comp. Metabolic Panel - Chemistry sodium, serum 142 mmol/L [phone]/06/08 carbon dioxide, venous blood 27.6 mmol/L 21.0-32.0 potassium, serum 4.0 mmol/L 3.5-5.2 chloride, serum 105 mmol/L 98-107 blood glucose 95 mg/dL 65-110 urea nitrogen, blood 8 mg/dL 7-18 creatinine, serum 0.75 mg/dL 0.55-1.30 alanine aminotransferase (SGPT), serum 49 U/L 12-78 aspartate aminotransferase (SGOT), serum 28 U/L 15-37 calcium, serum 9.4 mg/dL 8.5-10.1 bilirubin, serum, total 0.30 mg/dL 0.00-1.00 sodium, serum 140 mmol/L [id number] 0919/08/08 carbon dioxide, venous blood 33.7 mmol/L 21.0-32.0 [...] mg/dL Encounters Code Encounter Date Provider Facility CPT-69188 Level 3 Est. Patient 10:00:25 CDT Suzan Boo [facility] CPT-04184 Level 3 Est. Patient 10:29:30 CDT Suzan Boo [facility] CPT-86551 Level 3 Est. Patient 11:04:38 CDT Renzo Thornton DO [facility] CPT-83437 Level 3 Est. Patient 11:15:58 DEHAIRER Renzo Thornton DO [facility] CPT-43273 Level 3 Est. Patient 15:28:23 DEHAIRER Suzan Boo [facility] CPT-74370 Level 4 Est. Patient 10:20:54 DEHAIRER Suzan Boo [facility] CPT-27852 Level 3 Est. Patient 11:47:37 DEHAIRER Ahmet Carbajal MD [facility] CPT-04057 Level 3 Est. Patient 10:40:11 DEHAIRER Ahmet Carbajal MD [facility] CPT-97536 Level 3 Est. Patient 15:07:06 DEHAIRER Neeraj Collins MD [facility] CPT-97598 Level 4 Est. Patient 14:45:00 DEHAIRER Ahmet Carbajal MD [facility]-61057 Level 3 Est. Patient 13:59:59 CDT Luigi Martínez [facility]-81365 Level 3 Est. Patient 18:18:53 CDT Neeraj Collins MD [facility] CPT-64680 Level 3 Est. Patient 15:50:44 CDT Vishal Hui MD [facility]-09622 Level 3 Est. Patient 11:36:17 CDT Ahmet Carbajal MD [facility] CPT-63880 Level 3 Est. Patient 13:29:16 CDT Vishal Hui MD [facility] CPT-90531 Level 3 Est. Patient 14:27:52 CDT Neeraj Collins MD [facility] CPT-40380 Level 3 Est. Patient 08:56:03 CDT Luigi Martínez [facility] CPT-04807 Level 4 Est. Patient 12:11:48 CDT Fabiola Johnson [facility] CPT-70513 Level 3 New Patient 16:53:37 CDT Albert Caldera MD [facility] CPT-56174 Level 3 Est. Patient 11:25:49 CDT Renzo Thornton [facility] CPT-31479 Level 3 Est. Patient 15:22:01 CDT Ahmet Cabrajal MD [facility] CPT-62027 Level 4 Est. Patient 09:00:51 DEHAIRER iVshal Hui MD [facility] CPT-45264 Level 3 Est. Patient 11:37:33 DEHAIRER Vishal Hui MD [facility] CPT-48431 Level 3 Est. Patient 08:41:09 DEHAIRER Vishal Hui MD [facility] CPT-53188 Level 4 Est. Patient 10:19:35 DEHAIRER Vishal Hui MD [facility] CPT-46704 Level 3 Est. Patient 13:35:45 CDT Vishal Hui MD [facility] CPT-44755 Level 4 Est. Patient 10:08:37 CDT Vishal Hui MD [facility] CPT-11875 Level 3 Est. Patient 11:22:10 CDT Vishal Hui MD [facility] CPT-91574 Level 3 Est. Patient 11:03:32 CDT Sahara Rodriguez MD, PhD [facility] CPT-40731 Level 3 Est. Patient 09:41:35 CDT Vishal Hui MD [facility] CPT-65880 Level 3 Est. Patient 12:00:41 CDT Neeraj Collins MD [facility] CPT-49440 Level 3 Est. Patient 09:16:24 CDT Vishal Hui MD [facility] CPT-44190 Level 4 Est. Patient 13:59:09 CDT Neeraj Collins MD [facility] CPT-16755 Level 3 Est. Patient 15:19:43 CDT Renzo Thornton DO [facility] CPT-96167 Level 3 Est. Patient 18:10:26 CDT Sahara Rodriguez MD PhD [facility] CPT-67909 Level 3 Est. Patient 14:49:50 CDT Vishal Hui MD [facility] CPT-29943 Level 4 Est. Patient 18:41:46 CDT Neeraj Collins MD [facility] CPT-99007 Level 4 Est. Patient 09:18:38 DEHAIRER Vishal Hui MD [facility] CPT-06525 Level 3 Est. Patient 14:43:55 DEHAIRER Vishal Hui MD [facility] CPT-60950 Level 3 Est. Patient 15:26:33 DEHAIRER Shaara Rodriguez MD [facility] CPT-23936 Level 3 Est. Patient 10:32:14 DEHAIRER Vishal Hui MD [facility] CPT-46521 Level 3 Est. Patient 15:12:52 DEHAIRER Vishal Hui MD [facility] CPT-06337 Level 4 Est. Patient 09:19:27 CDT Vishal Hui MD [facility] CPT-59811 Level 3 Est. Patient 15:53:00 CDT Renzo Thornton [facility] CPT-25704 Level 3 Est. Patient 15:50:30 CDT Renzo Thornton [facility] CPT-38291 Level 3 Est. Patient 16:55:24 CDT Vishal Hui MD [facility] Procedures Code Procedure Name Date Entry Date Standard Description CPT-89189 Abd compl w upright - XRAY USE ONLY 10:27:59 CDT 06/28 CPT-56313 Smoking Cessation counseling 11:15:58 DEHAIRER CPT-G0439 [facility] Annual Wellness Exam 09:30:58 DEHAIRER CPT-33777 TSH - LAB USE ONLY 08:50:26 DEHAIRER CPT-16905 CBC - LAB USE ONLY 08:50:26 DEHAIRER CPT-03966 Venipuncture Draw Fee 08:50:26 DEHAIRER CPT-99634 Abx/Therapy Injection 17:34:30 DEHAIRER CPT-50089 Nexplanon Removal with Reinsertion 14:09:32 CDT CPT-J7307 Nexplanon (Implant) 14:09:32 CDT CPT-OV Office Visit 14:09:32 CDT CPT-30085 UA w micro - LAB USE ONLY 16:21:13 CDT CPT-46396 Wet Mount - LAB USE ONLY 16:21:13 CDT CPT-51932 First Vx - Ix admin for Medicare patients 14:37:47 CDT CPT-09942 Fluzone Preservative Free Intramuscular Suspension 14:37 :47 CDT CPT-10384 Abx/Therapy Injection 13:54:22 CDT CPT-57734 Abx/Therapy Injection 08:47:09 CDT CPT-00411 Abx/Therapy Injection 13:29:56 CDT CPT-98110 Abx/Therapy Injection 08:36:16 CDT CPT-73555 Wet Mount - LAB USE ONLY 17:44:58 CDT CPT-61137 UA w micro - LAB USE ONLY 17:44:58 CDT CPT-46704 CMP - LAB USE ONLY 17:44:58 CDT CPT-18784 Venipuncture Draw Fee 17:44:58 CDT CPT-36847 Cervical Min 4V - XRAY USE ONLY 09:01:40 CDT CPT-99707 Chest 2V Frontal and Lat - XRAY USE ONLY 11:06:31 CDT CPT-16521 EKG Trac and Interp - XRAY USE ONLY 11:31:43 CDT 08/26 CPT-J3420 Vitamin B12 1000mcg (Cyanocobalamin) 08:10:26 DEHAIRER 04/12 CPT-61129 Abx/Therapy Injection 08:10:26 DEHAIRER CPT-G0438 Initial Annual Wellness Exam 19:01:01 DEHAIRER CPT-J3420 Vitamin B12 1000mcg (Cyanocobalamin) 16:57:46 CDT 08/14 CPT-90385 Recombivax HB Injection Suspension 5 MCG/0.5ML 08:37:50 DEHAIRER CPT-87533 Immunization Single Admin 08:37:50 DEHAIRER CPT-J3420 Vitamin B12 1000mcg (Cyanocobalamin) 08:32:16 DEHAIRER 03/11 CPT-26859 Abx/Therapy Injection 08:32:16 DEHAIRER CPT-88814 Chest 2V Frontal and Lat 11:46:38 DEHAIRER CPT-37552 Venipuncture Draw Fee 09:12:45 DEHAIRER CPT-J3420 Vitamin B12 1000mcg (Cyanocobalamin) 08:50:15 DEHAIRER 02/08 CPT-34997 Abx/Therapy Injection 08:50:15 DEHAIRER CPT-Cryo Cryotherapy 10:19:35 DEHAIRER CPT-000 Give Appropriate Flu Vaccine 09:22:16 CDT CPT-J3420 Vitamin B12 1000mcg (Cyanocobalamin) 19:08:57 CDT 01/11 CPT-64919 Abx/Therapy Injection 19:08:57 CDT CPT-J3420 Vitamin B12 1000mcg (Cyanocobalamin) 08:19:08 CDT 12/11 CPT-87990 Abx/Therapy Injection 08:19:08 CDT CPT-J3420 Vitamin B12 1000mcg (Cyanocobalamin) 14:48:00 CDT 11/09 CPT-70545 Abx/Therapy Injection 14:47:59 CDT CPT-J3420 Vitamin B12 1000mcg (Cyanocobalamin) 08:34:04 CDT 10/09 CPT-81888 Abx/Therapy Injection 08:34:04 CDT CPT-J3420 Vitamin B12 1000mcg (Cyanocobalamin) 09:18:52 CDT 09/11 CPT-97978 Abx/Therapy Injection 09:18:52 CDT CPT-J3420 Vitamin B12 1000mcg (Cyanocobalamin) 08:35:44 CDT 09/04 CPT-34872 Abx/Therapy Injection 08:35:44 CDT CPT-48040 Immunization Single Admin 11:07:16 CDT CPT-83220 Hepatitis B adult IM 11:07:16 CDT CPT-J3420 Vitamin B12 1000mcg (Cyanocobalamin) 11:00:49 CDT 08/28 CPT-J1040 Depo Medrol 80 mg (Methyl Prednisolone Acetate) 11:00: 49 CDT CPT-53836 Abx/Therapy Injection 11:00:49 CDT CPT-J1040 Depo Medrol 80 mg (Methyl Prednisolone Acetate) 09:16: 23 CDT CPT-J3420 Vitamin B12 1000mcg (Cyanocobalamin) 08:27:05 CDT 08/20 CPT-11235 Abx/Therapy Injection 08:27:05 CDT CPT-12032 Recombivax HB Injection Suspension 5 MCG/0.5ML 10:00:41 CDT CPT-22312 Administration single or combination vaccine inc oral 10 :00:41 CDT CPT-99487 Sono transvag pelvis non OB uterus ovaries cervix 16:36: 57 CDT CPT-99313 LS spine comp w obliq 09:50:55 DEHAIRER CPT-07110 Abd compl w upright 09:50:55 DEHAIRER CPT-J1100 Decadron 4mg (Dexamethasone) 15:51:24 DEHAIRER CPT-J1030 Depo Medrol 40 mg (Methyl Prednisolone Acetate) 15:51: 24 DEHAIRER CPT-04879 Abx/Therapy Injection 15:51:24 DEHAIRER CPT-J1100 Decadron 4mg (Dexamethasone) 15:26:33 DEHAIRER CPT-J1030 Depo Medrol 40 mg (Methyl Prednisolone Acetate) 15:26: 33 DEHAIRER CPT-39542 Sono retroperitoneal complete kidneys and bladder 17:15: 30 CDT CPT-47825 Abd compl w upright 16:09:25 CDT CPT-J1100 Decadron 8mg (Dexamethasone) 17:07:57 CDT CPT-32152 Abx/Therapy Injection 17:07:57 CDT CPT-J1100 Decadron 8mg (Dexamethasone) 16:55:24 CDT CPT-86047 Chest 2V Frontal and Lat 16:32:44 CDT
== END 2016-11-04 13:04 | disposition home or self-care (01) ==
LOC: EDUNIT# 10:17 → ER 10:19
DX: G43.909 Migraine, unspecified, not intractable, without status migrainosus (principal); F41.9 Anxiety disorder, unspecified; F31.9 Bipolar disorder, unspecified; K21.9 Gastro-esophageal reflux disease without esophagitis; K59.09 Other constipation; J44.9 Chronic obstructive pulmonary disease, unspecified; I10 Essential (primary) hypertension; F17.210 Nicotine dependence, cigarettes, uncomplicated; Z90.49 Acquired absence of other specified parts of digestive tract; Z90.89 Acquired absence of other organs; Z87.828 Personal history of other (healed) physical injury and trauma; Z79.84 Long term (current) use of oral hypoglycemic drugs
CPT/HCPCS: 96361; 96374; 96375

== ENCOUNTER 2016-11-05 13:40 | Emergency (ER) | payer MEDICARE, MEDICAID ==
[~2016-11-05] VITALS: Ht 165.1 cm; Wt 122.5 kg
[~2016-11-05 13:40] MED LIST changes: +ATOM25CA5 PO; +METF500T8 PO
[2016-11-05] MEDS ORDERED: KETOROLAC 60 MG/2 ML VIAL IM STA (13:44)
[2016-11-05] MEDS ORDERED: ORPHENADRINE 60 MG/2 ML (NORFLEX) AMP IM STA (13:44)
[2016-11-05] MEDS ORDERED: diphenhydrAMINE 50 MG/ML INJ (BENADRYL) IM STA (13:44)
[2016-11-05] MEDS ORDERED: ONDANSETRON 4 MG (ZOFRAN) ORAL DISSOLVE TAB SL STA (13:44)
--- OUTSIDE RECORDS SUMMARY | 2016-11-05 13:48 | XMS REPORT | Encounter Summary ---
Author Author [facility] Organization [facility] Address Unknown Phone Unavailable Care Team Providers Care Trial Court Judge Name Role Phone PCP Unavailable Encounter Details Date Type Department Care Team Description 10/30/2016 Ancillary Rad Outpatient, Radiologist Diagnosis unknown Orders [address] [place] [address] Social History Tobacco Use Types [...]
--- OUTSIDE RECORDS SUMMARY | 2016-11-05 13:48 | XMS REPORT | Encounter Summary ---
Author Author [facility] Organization [facility] Address Unknown Phone Unavailable Care Team Providers Care Wrap Yarn Sorter Name Role Phone PCP Unavailable Encounter Details Date Type Department Care Team Description 08/10/2016 Hospital [facility] Radiology [address] [place] [place] [address] Social History Tobacco Use Types [...]
--- OUTSIDE RECORDS SUMMARY | 2016-11-05 13:48 | XMS REPORT | Encounter Summary ---
Author Author [facility] Organization [facility] Address Unknown Phone Unavailable Care Team Providers Care Animal Pathologist Name Role Phone PCP Unavailable Reason for Visit * Reason Comments Pre-Visit Planning Dr Caballero 11/08/16 Encounter Details Date Type Department Care Team Description 10/25/[address] [facility] Meseret Caballero MBBS Pre-Visit Planning ([facility] Neurology [address] [place] 11/08/16) [address] [place] [address] [place] [address] [phone] Social History Tobacco Use Types Packs/Day Years [...]
--- OUTSIDE RECORDS SUMMARY | 2016-11-05 13:48 | XMS REPORT | Clinical Summary ---
Author Author [facility] Organization [facility] Address Unknown Phone Unavailable Care Team Providers Care Extractor Machine Operator Name Role Phone PCP Unavailable Source Comments Some departments are not documenting in the electronic medical record. If you do not see the information that you expected, contact Release of Information in the Health Information Management department at [phone] for further assistance in locating additional records.[facility] Allergies Active Allergy Reactions Severity [...]
--- NOTE | 2016-11-05 14:01 | ED Headache ---
General Chief Complaint: Head/Cervical Problems Stated Complaint: MIGRAINE Nursing Triage Note: PT CO OF MIGRAINE LEOS STARTED AT 0345 THIS AM, HAS APPT W NERUOLOGIST ON SUN THIS WEE, Nursing Sepsis Screen: No Definite Risk Source: patient, other (significant other) Exam Limitations: no limitations History of Present Illness Time seen by provider: 14:01 Initial Comments 31 yo female patient presents to the ED with c/o recurrent migraine starting at 0345 this AM. Patient was seen by this examiner yesterday for complaints of migraine. Patient reports after she left the ED yesterday her headache was a 2/ 10. States she was able to sleep "a couple of times" and felt better. Patient reports that she "always has a headache", but some days are worse than others. Patient states today she was having "hallucinations" and has had these 1 other time with her migraines. also states she has hallucinations with the schizoeffective disorder. initially reported to ED staff that she had never had hallucinations before. Patient today is wearing sunglasses. She does have an appointment with a neurologist Sunday. Denies taking her home medications today for the migraine. Timing/Duration: other (chronic headaches (see full H&P from 11/04/16)) Severity/Quality: throbbing Location: global Prior Headaches/Recent Trauma: chronic headaches Modifying Factors: worse with exposure to light, worse with other (exposure to sound) Allergies and Home Medications Allergies Coded Allergies: amoxicillin (Verified Allergy, Unknown, 10/14/16) clavulanic acid (Verified Allergy, Unknown, 10/14/16) quetiapine (Verified Allergy, Unknown, 10/14/16) ropinirole (Verified Allergy, Unknown, 10/14/16) Home Medications Atomoxetine HCl 25 Mg Capsule, 25 MG PO DAILY, (Reported) Butalb/Acetaminophen/Caffeine 1 Each Tablet, #30 (Reported) Fluoxetine HCl 10 Mg Capsule, #15 (Reported) Gabapentin 300 Mg Capsule, #270 (Reported) Lamotrigine 100 Mg Tablet, #60 (Reported) Lisdexamfetamine Dimesylate 60 Mg Capsule, 30 MG PO DAILY, #28 (Reported) Lubiprostone 24 Mcg Capsule, #60 (Reported) Metformin HCl 500 Mg Tab.er.24h, 500 MG PO DAILY, (Reported) Ondansetron 8 Mg Tab.rapdis, 8 MG PO Q6H PRN for NAUSEA/VOMITING-1ST LINE, #10 Ref 0 Prescribed by: LAYNE JIMÉNEZ on 11/04/16 1205 Risperidone 4 Mg Tablet, #30 (Reported) Sumatriptan Succinate 50 Mg Tablet, #9 (Reported) Tizanidine HCl 4 Mg Tablet, #90 (Reported) Zolpidem Tartrate 10 Mg Tablet, #30 (Reported) Constitutional: No chills, No fever, No malaise Eyes: Denies Drainage, Denies Decreased Acuity, Photophobia, Vision Changes ( scatomas) Ears, Nose, Mouth, Throat: denies ear pain, denies ear discharge, denies nose pain, denies nose discharge, denies mouth pain, denies loose teeth, denies throat pain Respiratory: no symptoms reported Cardiovascular: no symptoms reported Gastrointestinal: No abdominal pain, No diarrhea, loss of appetite, nausea, No vomiting Genitourinary: no symptoms reported Musculoskeletal: no symptoms reported Skin: no symptoms reported Psychiatric/Neurological: See HPI, Headache, Denies Numbness, Denies Paresthesia, Denies Seizure, Denies Tingling, Denies Weakness All Other Systems Reviewed Negative Unless Noted: Yes (Negative excepted noted.) Past Uypvuqh-Bqqhyk-Npsbur Hx Patient Social History Alcohol Use: Denies Use Recreational Drug Use: Yes Drug of Choice: past marijuana use Smoking Status: Current Everyday Smoker Type Used: Cigarettes 2nd Hand Smoke Exposure: Yes Recent Foreign Travel: No Contact w/Someone Who Travel: No Recent Infectious Disease Expo: No Recent Hopitalizations: Yes (elbow surgery x 2 months ago) Immunizations Up To Date Tetanus Booster (TDap): Less than 5yrs Seasonal Allergies Seasonal Allergies: Yes Surgeries HX Surgeries: Yes Surgeries: Appendectomy, Gallbladder, Orthopedic, Tonsillectomy Respiratory Hx Respiratory Disorders: No Respiratory Disorders: Asthma, Chronic Bronchitis, Sleep Apnea Cardiovascular Hx Cardiac Disorders: Yes Cardiac Disorders: Hypertension Neurological Hx Neurological Disorders: Yes Neurological Disorders: Concussion, Headaches /Migraines Genitourinary Hx Genitourinary Disorders: No Gastrointestinal Hx Gastrointestinal Disorders: Yes Gastrointestinal Disorders: Gastroesophageal Reflux, Chronic Constipation, Irritable Bowel Musculoskeletal Hx Musculoskeletal Disorders: Yes Musculoskeletal Disorders: Arthritis, Chronic Back Pain Endocrine Hx Endocrine Disorders: No Psychosocial Hx Psychiatric Problems: Yes Behavioral Health Disorders: Anxiety, Bipolar, Depression Reviewed Nursing Assessment Reviewed/Agree w Nursing PMH: Yes Family Medical History Significant Family History: No Pertinent Family Hx Physical Exam Vital Signs Vital Sign - Last 12Hours 11/05/16 13:45 Temp 97.8 Pulse 80 Resp 18 B/P (MAP) 139/90 Pulse Ox 99 Capillary Refill : Less Than 3 Seconds General Appearance: WD/WN, no apparent distress HEENT: PERRL/EOMI, normal ENT inspection, TMs normal, pharynx normal, photophobia Neck: non-tender, full range of motion, supple, normal inspection Cardiovascular: normal peripheral pulses, regular rate, rhythm, no edema, no murmur Respiratory: lungs clear, normal breath sounds, no respiratory distress, no accessory muscle use Gastrointestinal: non tender, soft, No distended Back: normal inspection Extremities: no pedal edema, normal capillary refill Psychiatric: alert, oriented x 3 Crainal Nerves: normal hearing, normal speech, PERRL Coordination/Gait: normal finger to nose, normal gait, negative Romberg's sign Motor/Sensory: no motor deficit, no sensory deficit, no pronator drift Skin: normal color, warm/dry Progress/Results/Core Measures Results/Orders My Orders Orders - LAYNE JIMÉNEZ Ketorolac Injection (Toradol Injection) (11/05/16 13:44) Orphenadrine Injection (Norflex Injectio (11/05/16 13:44) Ondansetron Oral Dissolve Tab (Zofran (11/05/16 13:44) Diphenhydramine Injection (Benadryl Inje (11/05/16 13:44) Ct Head Wo (11/05/16 14:00) Hydrocodone/Apap 10/325 Tablet (Lortab 1 (11/05/16 15:45) Im/Sub-Q Injection Non-Ab Ed (11/05/16 ) Vital Signs/I&O Vital Sign - Last 12Hours 11/05/16 11/05/16 13:45 15:58 Temp 97.8 Pulse 80 80 Resp 18 18 B/P (MAP) 139/90 Pulse Ox 99 99 Blood Pressure Mean: 106 Diagnostic Imaging Diagonstic Imaging: CT Plain Films/CT/US/NM/MRI: head Comments Ventricles are normal in size, shape, and position. There is no midline shift or mass effect. There is no hemorrhage or evidence of acute ischemia. The bony calvarium, visualized paranasal sinuses and mastoids are unremarkable. IMPRESSION: Negative CT head. Dictated by: Dictated on workstation # [id number] Reviewed: Reviewed by Me (radiology report reviewed by me) Departure Communication Progress Notes diagnostic findings discussed with the patient. patient states the "hallucinations" have improved. rates her headache at 5/10. patient is requesting something more for headache. we will give patient 1 dose of hydrocodone prior to dsch to home. patient instructed to f/u with the neurologist on sunday as previously scheduled. per ktracs and med rec hx patient is noted to have received numerous prescriptions from 7 different providers in the last 2 wks. In the last year patient is noted to have received 22 scheduled drug prescriptions from 10 providers (located in [facility] and [place] patient to continue her usual home medications. Impression Impression: Primary Impression: Migraine Disposition: HOME, SELF-CARE Condition: Improved Departure-Patient Inst. Decision time for Depature: 15:47 Referrals: NO,LOCAL PHYSICIAN (PCP/Family) Primary Care Physician Patient Instructions: Migraine Headache (DC) Add. Discharge Instructions: All discharge instructions reviewed with patient and/or family. Voiced understanding. Continue usual medications. Drink plenty of fluids. Continue instructions as discussed yesterday. Follow-up with your neurologist Sunday as previously scheduled. Return to the emergency department for worsened symptoms or any other concerns. LAYNE JIMÉNEZ Nov 05, 2016 2:01 pm
--- NOTE | 2016-11-05 14:35 | Diagnostic Imaging Report ---
PROCEDURE: CT head without contrast. TECHNIQUE: Multiple contiguous axial images were obtained through the brain without the use of intravenous contrast. INDICATION: Migraine headaches. COMPARISON: None. FINDINGS: Ventricles are normal in size, shape, and position. There is no midline shift or mass effect. There is no hemorrhage or evidence of acute ischemia. The bony calvarium, visualized paranasal sinuses and mastoids are unremarkable. IMPRESSION: Negative CT head. Dictated by: Dictated on workstation # [id number]
[2016-11-05] MEDS ORDERED: HYDROcodone/APAP 10 MG/325 MG (LORTAB) TAB PO STA (15:45)
[2016-11-05 15:58] VITALS: BP 132/80
== END 2016-11-05 15:58 | disposition home or self-care (01) ==
LOC: EDUNIT# 13:40 → ER 13:41
DX: G43.909 Migraine, unspecified, not intractable, without status migrainosus (principal); J44.9 Chronic obstructive pulmonary disease, unspecified; K21.9 Gastro-esophageal reflux disease without esophagitis; K59.09 Other constipation; F41.9 Anxiety disorder, unspecified; F31.9 Bipolar disorder, unspecified; F17.210 Nicotine dependence, cigarettes, uncomplicated; Z90.49 Acquired absence of other specified parts of digestive tract; Z90.89 Acquired absence of other organs; Z79.84 Long term (current) use of oral hypoglycemic drugs
CPT/HCPCS: 70450; 96372; 99284

== ENCOUNTER 2016-11-14 15:03 | Emergency (ER) | payer MEDICARE, MEDICAID ==
[~2016-11-14] VITALS: Ht 165.1 cm; Wt 117.9 kg
[~2016-11-14 15:03] MED LIST changes: -BUTA1TAB9; +BUTA1TAB9 PO; -FLUO10CA19; +FLUO10CA19 PO; -GABA-488; +GABA-488 PO; -LAMO100T; +LAMO100T PO; -LUBI24CA6; +LUBI24CA6 PO; -RISP4TAB2; +RISP4TAB2 PO; -TIZA4TAB3; +TIZA4TAB3 PO; -ZOLP10TA5; +ZOLP10TA5 PO
--- OUTSIDE RECORDS SUMMARY | 2016-11-14 15:11 | XMS REPORT | Encounter Summary ---
Author Author [facility] Organization [facility] Address Unknown Phone Unavailable Care Team Providers Care Hematology Nurse Educator Name Role Phone PCP Unavailable Reason for Visit * Reason Comments Pre-Visit Planning Dr Caballero 11/08/16 Encounter Details Date Type Department Care Team Description 10/25/2016 Telephone [facility] Meseret Caballero MBBS Pre-Visit Planning ([facility] Neurology [address] [place] 11/08/16) [address] [place] [address] [place] [address] [phone] Social History Tobacco Use Types Packs/Day Years [...]
--- OUTSIDE RECORDS SUMMARY | 2016-11-14 15:11 | XMS REPORT | Encounter Summary ---
Author Author [facility] Organization [facility] Address Unknown Phone Unavailable Care Team Providers Care Drop Hammer Set Up Operator Name Role Phone PCP Unavailable Encounter Details Date Type Department Care Team Description 10/30/2016 Ancillary Rad Outpatient, Radiologist Diagnosis unknown Orders [address] [place] [address] Social History Tobacco Use Types [...]
--- OUTSIDE RECORDS SUMMARY | 2016-11-14 15:11 | XMS REPORT | Encounter Summary ---
Author Author [facility] Organization [facility] Address Unknown Phone Unavailable Care Team Providers Care Service Unit Operator Oil Well Name Role Phone PCP Unavailable Reason for Visit * Reason Comments Medication Update Encounter Details Date Type Department Care Team Description 11/13/2016 Telephone [facility] Meseret Caballero MBBS Medication Update [facility] Neurology [address] [place] [address] [place] [address] [phone] Social History Tobacco Use Types Packs/Day Years [...]
--- OUTSIDE RECORDS SUMMARY | 2016-11-14 15:11 | XMS REPORT | Encounter Summary ---
Author Author [facility] Organization [facility] Address Unknown Phone Unavailable Care Team Providers Care Sales Marketing Director Name Role Phone PCP Unavailable Reason for Referral * Pain Authorization Status Reason Specialty Diagnoses / Referred By Referred To Procedures Contact Contact No Auth Needed Anesthesia Pain Diagnoses Emanuel Carrillo MD [facility] Anest[facility] Migraine without [address] [place] migrainosus, not [place] [address]ractable, [place] [address] migraine type Phone: Phone: P [phone] rocedures Fax: CHEMODENERVATION [phone] MUSCLE MIGRAINE Reason for Visit * Reason Comments Appointment Encounter Details Date Type Department Care Team Description 11/08/2016 Telephone [facility] Anest[facility] Jennifer Canas RN Appointment Pain Procedure [address] [place] [place], [place] [id number] Social History Tobacco Use Types Packs/Day Years [...] as of this encounter Plan of Treatment Name Priority Associated Diagnoses Order Schedule CHEMODENERVATION MUSCLE MIGRAINE Routine Migraine without status Expected: 11/08/2016, migrainosus, not Expires: 02/06/2017 intractable, unspecified migraine type as of this encounter Visit Diagnoses Diagnosis Migraine without status migrainosus, not intractable, unspecified migraine type - Primary in this encounter
--- OUTSIDE RECORDS SUMMARY | 2016-11-14 15:11 | XMS REPORT | Clinical Summary ---
Author Author [facility] Organization [facility] Address Unknown Phone Unavailable Care Team Providers Care Bariatric Coordinator Name Role Phone PCP Unavailable Source Comments Some departments are not documenting in the electronic medical record. If you do not see the information that you expected, contact Release of Information in the Health Information Management department at [phone] for further assistance in locating additional records.[facility] Allergies Active Allergy Reactions Severity Noted Date Comments Adhesive Tape (Rosins) RASH Medium 02/03/2014 Amitriptyline MENTAL STATUS CHANGES Medium 06/24/2015 Amoxicillin [...] Active SYSTEMS (HORIZON NASAL CPAP SYSTEM MISC) clonazePAM (KLONOPIN) 1 Take 1 mg by mouth three Active mg tablet times daily as needed. tiZANidine (ZANAFLEX) 4 Take 1 Tab by [...] by mouth every Active capsule 48 hours. butalbital/acetaminophen/ Take 2 tablets by mouth Active caffeine(+) (FIORICET) every 4 hours as needed 50/325/40 mg tablet for Headache. FLOVENT HFA 110 INHALE 2 PUFFS TWICE 2 08/19/19 Active mcg/actuation inhaler DAILY 17 verapamil SR (CALAN-SR) Take 180 mg by mouth Active 180 mg tablet twice daily. rizatriptan (MAXALT) 10 10mg at headache onset, 10 tablet 5 11/09/19 Active mg tabletIndications: may repeat in 1-2hrs if 17 Chronic migraine without needed, no more than aura without status 20mg/24hrs and migrainosus, not 10pills/1month intractable, Chronic daily headache promethazine (PHENERGAN) Take 1 tablet by mouth 30 tablet 3 11/09/19 Active 25 mg tabletIndications: every 8 hours as needed 17 Chronic migraine without for Nausea or Vomiting aura without status (for migraine mg). migrainosus, not intractable, Chronic daily headache nadolol(+) (CORGARD) 20 Take 1 tablet by mouth at 30 tablet 1 Active mg tablet bedtime daily. 17 vilazodone 10 mg tab Take by mouth daily. 11/09/19 Discontin 17 ued verapamil (ISOPTIN) 80 mg Take 180 mg by mouth 11/09/19 Discontin tablet twice daily. 17 ued topiramate (TOPAMAX) 25 25mg QHS x 1week, then 120 tablet 6 11/09/19 11/14/19 Discontin mg tabletIndications: 25mg BID x 1week, then 17 17 ued Chronic migraine without 25mg AM/50mg PM x 1week, aura without status then 50mg BID migrainosus, not intractable, Chronic daily headache Active Problems Problem Noted Date HTN (hypertension) 06/25/2015 Depression 06/25/2015 Anxiety 06/25/2015 Nonepileptic episode (HCC) 06/25/2015 Obesity, morbid, BMI 40.0-49.9 (HCC) 06/25/2015 Seizures (HCC) 06/24/2015 Convulsion ([facility]) 06/24/2015 Bilateral low back pain with left-sided sciatica 12/22/2014 Encounters Date Type Specialty Care Team Description 11/13/2016 Telephone Neurology Meseret Caballero MBBS Medication Update 11/08/2016 Office Visit Neurology Meseret Caballero MBBS Chronic migraine without aura without status migrainosus, not intractable (Primary Dx);Chronic daily headache 11/08/2016 Telephone Anesthesia Pain Jennifer Canas RN Appointment 10/30/2016 Ancillary Radiology Outpatient, Radiologist Diagnosis unknown Orders 10/25/2016 Telephone Neurology Meseret Caballero MBBS Pre-Visit Planning (Dr aCballero 11/08/16) from Last 3 Months Family History Medical [...] Vital Sign Reading Time Taken Blood Pressure 131/80 11/08/2016 1:26 PM CDT Pulse 120 11/08/2016 1:26 PM CDT Temperature 36.7 C (98 F) 11/29/2015 9:40 AM CDT Respiratory Rate 16 07/06/2016 8:32 AM CDT Oxygen Saturation 100% 11/08/2016 1:26 PM CDT Inhaled Oxygen - - Concentration Weight 118.4 kg (261 lb) 11/08/2016 1:26 PM CDT Height 162.6 cm (5' 4") 11/08/2016 1:26 PM CDT Body Mass Index 44.8 11/08/2016 1:26 PM CDT Plan of Treatment Health Maintenance Due Date Last Done Comments PHYSICAL (COMPREHENSIVE) 1994 EXAM PERTUSSIS VACCINE 1998 TETANUS VACCINE 2004 CERVICAL CANCER SCREENING 2008 INFLUENZA VACCINE 11/17/2016 Results Not on filefrom Last 3 Months
--- OUTSIDE RECORDS SUMMARY | 2016-11-14 15:11 | XMS REPORT | Encounter Summary ---
Author Author [facility] Organization [facility] Address Unknown Phone Unavailable Care Team Providers Care Chair Name Role Phone PCP Unavailable Reason for Visit * Reason Comments Headache Pt : reports noticed symptoms of headaches 2 years. Encounter Details Date Type Department Care Team Description 11/08/2016 Office Visit [facility] Meseret Caballero MBBS Chronic migraine without Hospital Neurology [address] aura without status [address] [place] 2010 migrainosus, not [address] [place] [address] intractable ([place] [address] Dx);Chronic daily [phone] headache Social History Tobacco Use Types Packs/Day Years Used Date Current Every Day Smoker 0.5 12 Smokeless Tobacco: Never Used Alcohol Use Drinks/Week oz/Week Comments Yes 0 Standard 0.0 drinks or equivalent Sex Assigned at Date Recorded Not on file as of this encounter Last Filed Vital Signs Vital Sign Reading Time Taken Blood Pressure 131/80 11/08/2016 1:26 PM CDT Pulse 120 11/08/2016 1:26 PM CDT Temperature - - Respiratory Rate - - Oxygen Saturation 100% 11/08/2016 1:26 PM CDT Inhaled Oxygen - - Concentration Weight 118.4 kg (261 lb) 11/08/2016 1:26 PM CDT Height 162.6 cm (5' 4") 11/08/2016 1:26 PM CDT Body Mass Index 44.8 11/08/2016 1:26 PM CDT in this encounter Functional Status Functional Status Response [...] impairment: No 02/03/2016 as of this encounter Instructions * Patient Instructions - Meseret Caballero MBBS - 11/08/2016 2:00 PM CDT Formatting of this note may be different from the original. Management of headaches is multi disciplinary with prescription medications, over the counter medications and lifestyle changes/ modification. Medications: Preventive therapy Start topamax as below Start Topiramate for migraine prevention as below. Topiramate AM PM Week 1 - 25mg Week 2 25mg 25mg Week 3 25mg 50mg Week 4 50mg 50mg Common side effects are weight loss, metallic/bad taste, paresthesias/ tingling in fingers, perioral and toes, cognitive impairment. Take your preventive medication as advised. Please be informed that it might take 2-3 months for a preventive therapy to show benefit. You need to give a fair amount of time for the medications to work unless any side effects. In case of side effects please contact us and dose adjustment/ drug removal may be needed. For acute headaches Stop taking fioricet because it causes rebound headache - You may take OTC excedrin migraine or tylenol or NSAID (aleve/ naproxen/ ibuprofen) - For severe headache: take maxalt 10mg - You may also take benadryl 25mg over the counter +/- nausea medication ( phenergan) +/- magnesium oxide 400mg - Please refrain from taking the as needed medications more than 8-10 times per month for concern for medication overuse headache. Over the counter supplements Magnesium oxide 400 or 500 mg daily (can cause diarrhea), Riboflavin/ Vitamin B2 400mg daily, CoQ10 100mg three times a day. If you wish to start the OTC supplements, we recommend you start one supplement at a time every 2 weeks before adding a second supplement to assess for any benefit/ adverse effects. Lifestyle modification/ Misc: Water: Please keep good hydration, drink at least 40-60 oz of water/ fluid daily Sleep: Please try to obtain at least 6-8 hours of sleep daily. Practice sleep hygiene as sleep deprivation makes headache worse. Diet/Exercise: It is important to moderate dietary intake of sugars/ carbohydrates, caffeine, red wine, cheese, chocolate, processed foods, as these can be triggers. Exercising regularly is also recommended. A healthy/normal BMI is recommended. Stress/ Mood: Try to avoid stress as that makes headaches worse. Triggers: Please look for your headache triggers. Common triggers are - food ( wine, chocolates, cheese, MSG, artifical sweetners, processed food), weather change, sleep pattern, dehydration, missing meals, menstrual cycle (if applicable), stress. Miscellaneous Please make sure you get regular eye exams (at least once a year). Realistic expectations of Chronic headaches: We hope for eventual 50% reduction in headaches frequency or intensity. Need to try drug for at least 90 days at therapeutic dose, unless significant side effects/adverse effects. Often it will take combination of multiple medications and/or procedures to provide relief. Please note that many headache medications that are prescribed for both prevention and treatment are actually "off label" for this indication. There are small reviews of the medications that have gained their [place] [employer] recommendation for use. As with any medication, these can cause side effects. Please be aware of the most common side effects and call the office with any concerns. in this encounter Progress Notes * Meseret Caballero MBBS - 11/08/2016 2:00 PM CDT Formatting of this note may be different from the original. Date of Service: 11/08/2016 Ara Kirby is a 31 y.o. female. Subjective: History of Present Illness No chief complaint on file. Visit Date: 11/08/16 Reason for Visit: Migraines Physician Information PCP: Dr Carbajal Referring Physician: Dr Lorena ARVIZU Previous Neurologist: Dr Sujit ARVIZU Neurosurgery Other providers seen: Previous Imaging: MRI Head CT Scan Head and CT and MRI of Neck Informant: Patient The patient is a 31-year-old female with past medical history of chronic headaches, lower back pain, history of IBS, hypertension, asthma, schizoaffective disorder, depression, anxiety, history of nonepileptic spells diagnosed in June 2015. She reports that she has history of chronic headaches since she was 8 years old however earlier her headaches are not that frequent. For the last 2 years she has been experiencing headache on a daily basis. The headaches are bioccipital in location, 2-3 out of 10 intensity, throbbing in character on a daily basis making her irritable. She reports photophobia with daily headaches. At least 5 times a week the headaches get worse, 9 out of 10 intensity, associated with nausea photophobia. With the bad headaches she has blurred vision, difficulty with her speech and thought process. Bad headache episodes can last for at least a week. She describes this as explosive in character causing blurred vision and problems with her depth perception. She denies any loss of vision. She denies any double vision or any focal weakness on one side of the body or the other with the headaches. She does report dizziness with a severe migraine episodes. She is noticed that bright lights, LED lights, loud sounds and certain smells can trigger headache. Relieving factors include medications like Fioricet. She has been on Fioricet for the last 1 month has been taking 1-2 pills on a daily basis. Prior to that she is taking Imitrex and Tylenol. She reports that latter does not do much. She has been to ER in the past and got some injection of Toradol Zofran and Benadryl with some benefit. She is currently not on a headache preventive medication. Average number of hours of sleep: 5 hrs Snoring: yes, has MORIAH and sleeps with CPAP Feels fresh in morning or rested: no Depression/ anxiety: yes Type of Work: Days of missed work/mo: ER visits due to headache: yes Family hx of migraine: mother Family hx of stroke: Personal history of stroke: no Hx of head injury: yes Personal history of DVT, PEs, miscarriages: no History of renal stones: no History of asthma: yes, mild History of glaucoma: no Last eye check up: Mar 2016, she was diagnosed with "eye spasms" Current medications: botox injections with pain clinic: got just one round in June 2016 Occipital nerve block Medications/ modalities tried: Amitriptyline: aggressive Topamax: she was on it as a kid for mood stabilizer, and may be took for couple of months around 6 years ago Atarax Sumatriptan Benadryl Review of outside records: CT head with and without contrast from February 2015 was reported to show a prominent sulcus or residual from remote insult such as infarct in the right frontal location likely of no clinical significance. Questionable venous malformation in the right parietal lobe. If patient has continued symptoms an MRI of the brain with and without contrast would be recommended for further evaluation. MRI brain with and without contrast from February 2015 was reported to be normal pre-and post contrast MRI of the brain. The body of the report mentions that the lucency noted on the CT scan in the right frontoparietal region represents a prominent sulcus without definite infarct or other cortical abnormality. CT of the head from April 2015 was reported to be normal study. CT of the head from July 2015 was reported to be normal. MRI of the neck from October 2015 was reported to be normal magnetic resonance imaging of the cervical spine unchanged compared to the previous study from April 2015. MRI of the cervical spine without contrast from July 2016 was reported to show minimal disc bulge at C 6 C7 felt to be clinically insignificant. Otherwise negative. Review of records shows that the patient was admitted in the neurology service in June 2015 for full body convulsions. During the hospitalization she underwent video EEG monitoring which captured 5 over episodes with no epileptiform activity or lateralizing signs. Prior to that she was on Keppra which was discontinued. She was diagnosed with nonepileptic spells and was encouraged to follow-up with psychiatry group and establish care with a psychologist with cognitive behavioral therapy as an outpatient. Past Medical History: Diagnosis Date Anxiety Asthma Back pain Depression Gastrointestinal disorder Hypertension IBS (irritable bowel syndrome) Obstructive sleep apnea Schizoaffective disorder (HCC) Sinus tachycardia Past Surgical History: Procedure Laterality Date BACK SURGERY CARPAL TUNNEL RELEASE CYST REMOVAL Left cheek DENTAL SURGERY GALLBLADDER SURGERY HX APPENDECTOMY TUMOR REMOVAL Left x2 Family History Problem Relation Age of Onset Stroke Maternal Grandfather Social History Social History Marital status: Single Spouse name: N/A Number of children: N/A Years of education: N/A Social History Main Topics Smoking status: Current Every Day Smoker Packs/day: 0.50 Years: 12.00 Smokeless tobacco: Never Used Alcohol use 0.0 oz/week 0 Standard drinks or equivalent per week Drug use: No Sexual activity: Not on file Other Topics Concern Not on file Social History Narrative Allergies Allergen Reactions Amitriptyline MENTAL STATUS CHANGES Amoxicillin VOMITING Augmentin [Amoxicillin-Pot Clavulanate] VOMITING Fanapt [Iloperidone] PALPITATIONS Requip [Ropinirole] SEE COMMENTS Makes her very weak and can not stand Seroquel [Quetiapine] SEE COMMENTS Unable to swallow Review of Systems Constitutional: Positive for fatigue. HENT: Positive for trouble swallowing. Eyes: Positive for photophobia and visual disturbance. Respiratory: Positive for apnea, wheezing and stridor. Cardiovascular: Positive for palpitations. Gastrointestinal: Positive for constipation. Musculoskeletal: Positive for arthralgias, back pain, gait problem, myalgias, neck pain and neck stiffness. Allergic/Immunologic: Positive for environmental allergies. Neurological: Positive for dizziness, speech difficulty, weakness, light- headedness, numbness and headaches. Psychiatric/Behavioral: Positive for agitation, confusion, decreased concentration and hallucinations. The patient is nervous/anxious and is hyperactive. Objective: butalbital/acetaminophen/caffeine(+) (FIORICET) 50/325/40 mg tablet Take 2 tablets by mouth every 4 hours as needed for Headache. clonazePAM (KLONOPIN) 1 mg tablet Take 1 mg by mouth three times daily. FLOVENT HFA 110 mcg/actuation inhaler INHALE 2 PUFFS TWICE DAILY fluoxetine (PROZAC) 10 mg capsule Take 10 mg by mouth every 48 hours. gabapentin (NEURONTIN) 300 mg capsule Take 900mg by mouth in AM, 900mg at Noon, and 900mg at bedtime. Indications: NEUROPATHIC PAIN lamoTRIgine (LAMICTAL) 100 mg tablet Take 100 mg by mouth twice daily. lisdexamfetamine(+) (VYVANSE) 60 mg capsule Take 60 mg by mouth every morning omeprazole DR(+) (PRILOSEC) 20 mg capsule Take 20 mg by mouth daily. OXYGEN-AIR DELIVERY SYSTEMS (HORIZON NASAL CPAP SYSTEM [facility]) Use as directed. ranitidine(+) (ZANTAC) 150 mg tablet Take 150 mg by mouth twice daily. risperiDONE (RISPERDAL) 4 mg tablet Take 4 mg by mouth daily. SUMAtriptan (IMITREX) 50 mg tablet Take 25 mg by mouth every 4 hours as needed for Migraine symptoms (up to 100mg). tiZANidine (ZANAFLEX) 4 mg tablet Take 1 Tab by mouth three times daily. verapamil (ISOPTIN) 80 mg tablet Take 180 mg by mouth twice daily. vilazodone 10 mg tab Take by mouth daily. zolpidem (AMBIEN) 10 mg tablet Take 10 mg by mouth at bedtime as needed for Sleep. Vitals: 11/08/16 1326 BP: 131/80 Pulse: 120 SpO2: 100% Weight: 118.4 kg (261 lb) Height: 162.6 cm (64") Body mass index is 44.8 kg/(m^2). Physical Exam General physical exam: General: Alert, cooperative, no distress, appears stated age Fundoscopic exam: No papilledema, sharp optic discs bilaterally HEENT: Normocephalic, eyes open with no discharge Neurological Examination: Mental status: Alert, awake and oriented to time place and person Speech: Fluent, comprehension intact Cranial nerves 2-12 : Pupils equal round and reactive to light, extra ocular muscles intact, normal facial sensation and symmetry, normal facial strength, hearing intact to conversation, equal palatal elevation and tongue midline Motor: Motor strength is intact in bilateral shoulder abduction, elbow extension , elbow flexion, wrist extension, wrist flexion, hip flexors, knee extension, knee flexion, ankle dorsiflexion, ankle plantar flexion Sensory: Intact to light touch grossly Deep tendon reflexes: 2 throughout with down going toes bilaterally Coordination: intact to finger to nose Gait: normal gait Assessment and Plan: Ara Kirby is a 31 y.o. female with past medical history of chronic headaches, currently getting Botox injections in the [facility] anesthesia clinic, referred to neurology clinic for medication management. She also has history of lower back pain, history of IBS, hypertension, asthma, schizoaffective disorder, depression, anxiety, history of nonepileptic spells diagnosed in June 2015. 1. Chronic daily headaches with migrainous features - daily headaches with bad episodes 5 times a week - Status post 1 round of Botox injections at anesthesia clinic in June 2016 2. Possible medication overuse headache Plan: Patient does seem to have chronic daily headache with migrainous features. I think she will be a very good candidate for Botox injections. Seems like she underwent one round of Botox injection spine Center in June 2016 however the patient did not follow-up with subsequent rounds because she did not notice any benefit with the first round. Discussed with the patient that usually it can take 2-3 rounds to show any efficacy of Botox injection. I strongly recommend giving a trial for 2 more rounds before we determine that she is a Botox nonresponder. This was discussed with patient who seems to be in agreement. Since her previous Botox injections has been with Dr. Carrillo's office I have encouraged the patient to get in touch with his office and I will also send an email to Dr. Purcell. In the meanwhile I will start her on headache preventive medication. We will start her on Topamax gradually titrating the dose up to 50 mg twice a day. Discussed benefits and side effects. For abortive therapy the patient was given a prescription for Maxalt. She was advised to stop taking Fioricet for significant concern for medication overuse headache. She has not noticed any benefit with sumatriptan in the past. We will also give her migraine cocktail with Benadryl plus minus Phenergan plus minus magnesium plus minus Tylenol. Discussed with the amount counter medications including magnesium oxide and riboflavin. All written instructions were given to the patient. We also talked about lifestyle modification including good sleep. She was strongly encouraged to have a CPAP machine checked. She does have history of obstructive sleep apnea and is currently using CPAP machine however does not remember when the last time the machine was checked. We also talked about realistic expectations of her headaches. She has been suffering from chronic headaches all her life with chronic daily headaches for the last 2 years. At this time our goal would be to achieve at least 50% reduction and improvement in her headache and quality of life. Orders Placed This Encounter topiramate (TOPAMAX) 25 mg tablet rizatriptan (MAXALT) 10 mg tablet promethazine (PHENERGAN) 25 mg tablet There are no Patient Instructions on file for this visit. Return in about 4 months (around 03/10/2017). Time spent with the patient was 45 minutes, more than 50% of the time was spent towards discussing diagnosis, management, counseling and co-ordination of care. Meseret Caballero MD Clinical Unit Manager [employer] Department of Neurology in this encounter Plan of Treatment Not on fileas of this encounter Visit Diagnoses Diagnosis Chronic migraine without aura without status migrainosus, not intractable - Primary Chronic migraine without aura, without mention of intractable migraine without mention of status migrainosus Chronic daily headache Headache in this encounter
[2016-11-14 15:59] LABS: BASOPHILS % (AUTO) 0 % (0-10); EOSINOPHILS # (AUTO) 0.2 10^3/uL (0.0-0.3); EOSINOPHILS % (AUTO) 2 % (0-10); LYMPHOCYTES % (AUTO) 27 % (12-44); MEAN CORPUSCULAR HEMOGLOBIN 31 PG (25-34); MEAN CORPUSCULAR HGB CONC 35 G/DL (32-36); MEAN CORPUSCULAR VOLUME 90 FL (80-99); MEAN PLATELET VOLUME 9.8 FL (7.4-10.4); MONOCYTES % (AUTO) 9 % (0-12); NEUTROPHILS # (AUTO) 6.6 X 10^3 (1.8-7.8); NEUTROPHILS % (AUTO) 61 % (42-75); PLATELET COUNT 332 10^3/uL (130-400); RED BLOOD COUNT 4.15 10^6/uL (4.35-5.85); RED CELL DISTRIBUTION WIDTH 13.2 % (10.0-14.5); WHITE BLOOD COUNT 10.8 10^3/uL (4.3-11.0)
[2016-11-14 16:19] LABS: ALANINE AMINOTRANSFERASE 24 U/L (0-55); ALBUMIN 3.9 GM/DL (3.2-4.5); ANION GAP 6 MMOL/L (5-14); ASPARTATE AMINO TRANSFERASE 17 U/L (5-34); BILIRUBIN,TOTAL 0.1 MG/DL (0.1-1.0); BLOOD UREA NITROGEN 11 MG/DL (7-18); BUN/CREATININE RATIO 16; CALCIUM 8.9 MG/DL (8.5-10.1); CARBON DIOXIDE 24 MMOL/L (21-32); CHLORIDE 110 MMOL/L (98-107); CREATININE SERUM 0.68 MG/DL (0.60-1.30); GFR ESTIMATED > 60; GLUCOSE 112 MG/DL (70-105); MAGNESIUM 2.1 MG/DL (1.8-2.4); POTASSIUM 3.9 MMOL/L (3.6-5.0); SODIUM 140 MMOL/L (135-145); TOTAL PROTEIN 6.3 GM/DL (6.4-8.2)
[2016-11-14 16:39] LABS: TROPONIN I < 0.30 NG/ML (<0.30)
--- NOTE | 2016-11-14 17:18 | ED Cardiac General ---
History of Present Illness General Chief Complaint: Chest Pain Stated Complaint: HIGH HEART RATE,CHEST PAINS Nursing Triage Note: pt reports cp/pressure and palpitations starting today. Source: patient Exam Limitations: no limitations History of Present Illness Time seen by provider: 15:45 Initial Comments This 31-year-old woman presents to emergency room with complaints of palpitations and a throbbing headache. Symptoms seem to be worse when she is bending over or standing up. She describes the discomfort in her chest as a heavy sensation. She does have an appointment with Adore Xiao at [facility] tomorrow. 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 Ahmet Barba for chronic sinus tachycardia. No lower extremity symptoms. No shortness of air. No fever. NTG SL INFORMATION SERVICES CONSULTANT: No ASA po INFORMATION SERVICES CONSULTANT: No Allergies and Home Medications Allergies Coded Allergies: Penicillins (Verified Allergy, Unknown, 11/14/16) amitriptyline (Verified Allergy, Unknown, 11/14/16) amoxicillin (Verified Allergy, Unknown, 10/14/16) clavulanic acid (Verified Allergy, Unknown, 10/14/16) iloperidone (Verified Allergy, Unknown, 11/14/16) morphine (Verified Allergy, Unknown, 11/14/16) quetiapine (Verified Allergy, Unknown, 10/14/16) ropinirole (Verified Allergy, Unknown, 10/14/16) Home Medications Atomoxetine HCl 25 Mg Capsule, 25 MG PO DAILY, (Reported) Butalb/Acetaminophen/Caffeine 1 Each Tablet, #30 (Reported) Fluoxetine HCl 10 Mg Capsule, #15 (Reported) Gabapentin 300 Mg Capsule, #270 (Reported) Lamotrigine 100 Mg Tablet, #60 (Reported) Lisdexamfetamine Dimesylate 60 Mg Capsule, 30 MG PO DAILY, #28 (Reported) Lubiprostone 24 Mcg Capsule, #60 (Reported) Metformin HCl 500 Mg Tab.er.24h, 500 MG PO DAILY, (Reported) Ondansetron 8 Mg Tab.rapdis, 8 MG PO Q6H PRN for NAUSEA/VOMITING-1ST LINE, #10 Ref 0 Prescribed by: LAYNE JIMÉNEZ on 11/04/16 1205 Risperidone 4 Mg Tablet, #30 (Reported) Sumatriptan Succinate 50 Mg Tablet, #9 (Reported) Tizanidine HCl 4 Mg Tablet, #90 (Reported) Zolpidem Tartrate 10 Mg Tablet, #30 (Reported) Review of Systems Constitutional: no symptoms reported EENTM: No Symptoms Reported Respiratory: No Symptoms Reported Cardiovascular: See HPI Gastrointestinal: No Symptoms Reported Genitourinary: No Symptoms Reported Musculoskeletal: no symptoms reported Skin: no symptoms reported Psychiatric/Neurological: See HPI Endocrine: No Symptoms Reported Past Owtojuz-Vptnux-Skmdye Hx Patient Social History Alcohol Use: Rarely Uses Number of Drinks Today: Alcohol Beverage of Choice: Wine Recreational Drug Use: Yes Drug of Choice: past marijuana use Smoking Status: Current Everyday Smoker Type Used: Cigarettes 2nd Hand Smoke Exposure: Yes Recent Foreign Travel: No Contact w/Someone Who Travel: No Recent Infectious Disease Expo: No Recent Hopitalizations: Yes (elbow surgery x 2 months ago) Physical Abuse: No Sexual Abuse: No Mistreated: No Immunizations Up To Date Tetanus Booster (TDap): Less than 5yrs Seasonal Allergies Seasonal Allergies: Yes Surgeries History of Surgeries: Yes (elbow, lumbar fusion, carpal tunnel bilat, back, lipoma resections, ulnar nerve release) Surgeries: Appendectomy, Gallbladder, Orthopedic, Tonsillectomy Respiratory History of Respiratory Disorde: Yes Respiratory Disorders: Asthma, Chronic Bronchitis, Sleep Apnea Currently Using CPAP: Yes Currently Using BIPAP: No Cardiovascular History of Cardiac Disorders: Yes (thickening of heart lining, chronic sinus tachycardia) Cardiac Disorders: Hypertension Neurological History of Neurological Disord: Yes Neurological Disorders: Concussion, Headaches /Migraines Genitourinary History of Genitourinary Disor: No Gastrointestinal History of Gastrointestinal Di: Yes (IBS) Gastrointestinal Disorders: Gastroesophageal Reflux, Chronic Constipation, Irritable Bowel Musculoskeletal History of Musculoskeletal Dis: Yes Musculoskeletal Disorders: Arthritis, Chronic Back Pain Endocrine History of Endocrine Disorders: No (pre diabetic) HEENT History of HEENT Disorders: No Cancer History of Cancer: No Psychosocial History of Psychiatric Problem: Yes (borderline personality, schizoaffective disorder) Behavioral Health Disorders: Anxiety, PTSD, Bipolar, Depression Suicide Risk Score: 0 Integumentary History of Skin or Integumenta: No Blood Transfusions History of Blood Disorders: No Family Medical History Significant Family History: No Pertinent Family Hx Physical Exam Vital Signs Vital Sign - Last 12Hours 11/14/16 15:49 Pulse 102 101 116 Capillary Refill : Less Than 3 Seconds General Appearance: No Apparent Distress, WD/WN, Obese HEENT: PERRL/EOMI, Normal ENT Inspection Neck: Normal Inspection Respiratory: Lungs Clear, Normal Breath Sounds, No Accessory Muscle Use, No Respiratory Distress Cardiovascular: No Edema, No Murmur, Normal Peripheral Pulses, Tachycardia Gastrointestinal: Normal Bowel Sounds, Non Tender, Soft Extremity: Normal Inspection, Non Tender, No Calf Tenderness, No Pedal Edema, Other (Negative Eliseo) Neurologic/Psychiatric: Alert, Oriented x3, No Motor/Sensory Deficits, Normal 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, 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 as Tested Skin: Normal Color, Warm/Dry Progress/Results/Core Measures Results/Orders Lab Results Laboratory Tests Test 11/14/16 15:52 Range/Units White Blood Count 10.8 4.3-11.0 10^3/uL Red Blood Count 4.15 L 4.35-5.85 10^6/uL Hemoglobin 12.9 11.5-16.0 G/DL Hematocrit 37 35-52 % Mean Corpuscular Volume 90 80-99 FL Mean Corpuscular Hemoglobin 31 25-34 PG Mean Corpuscular Hemoglobin Concent 35 32-36 G/DL Red Cell Distribution Width 13.2 10.0-14.5 % Platelet Count 332 130-400 10^3/uL Mean Platelet Volume 9.8 7.4-10.4 FL Neutrophils (%) (Auto) 61 42-75 % Lymphocytes (%) (Auto) 27 12-44 % Monocytes (%) (Auto) 9 0-12 % Eosinophils (%) (Auto) 2 0-10 % Basophils (%) (Auto) 0 0-10 % Neutrophils # (Auto) 6.6 1.8-7.8 X 10^3 Lymphocytes # (Auto) 3.0 1.0-4.0 X 10^3 Monocytes # (Auto) 1.0 0.0-1.0 X 10^3 Eosinophils # (Auto) 0.2 0.0-0.3 10^3/uL Basophils # (Auto) 0.0 0.0-0.1 10^3/uL Sodium Level 140 135-145 MMOL/L Potassium Level 3.9 3.6-5.0 MMOL/L Chloride Level 110 H 98-107 MMOL/L Carbon Dioxide Level 24 21-32 MMOL/L Anion Gap 6 5-14 MMOL/L Blood Urea Nitrogen 11 7-18 MG/DL Creatinine 0.68 0.60-1.30 MG/DL Estimat Glomerular Filtration Rate > 60 BUN/Creatinine Ratio 16 Glucose Level 112 H 70-105 MG/DL Calcium Level 8.9 8.5-10.1 MG/DL Magnesium Level 2.1 1.8-2.4 MG/DL Total Bilirubin 0.1 0.1-1.0 MG/DL Aspartate Amino Transf (AST/SGOT) 17 5-34 U/L Alanine Aminotransferase (ALT/SGPT) 24 0-55 U/L Alkaline Phosphatase 131 40-136 U/L Troponin I < 0.30 <0.30 NG/ML Total Protein 6.3 L 6.4-8.2 GM/DL Albumin 3.9 3.2-4.5 GM/DL TSH [place] Testing 0.76 0.35-4.94 UIU/ML Serum Test, Qualitative NEGATIVE NEGATIVE My Orders Orders - ALEXIS PRADO MD Cbc With Automated Diff (11/14/16 15:45) Comprehensive Metabolic Panel (11/14/16 15:45) Hcg,Qualitative Serum (11/14/16 15:45) Magnesium (11/14/16 15:45) Thyroid Analyzer (11/14/16 15:45) Troponin I (11/14/16 15:45) Saline Lock/Iv-Start (11/14/16 15:45) Ekg Tracing (11/14/16 15:45) Monitor-Rhythm Ecg Trace Only (11/14/16 15:45) Orthostatic Vital Signs (11/14/16 15:45) Vital Signs/I&O Vital Sign - Last 12Hours 11/14/16 11/14/16 11/14/16 11/14/16 15:49 15:57 15:57 17:37 Temp 98.0 Pulse 102 99 98 101 116 Resp 18 18 B/P (MAP) 125/79 Pulse Ox 97 97 O2 Delivery Room Air Room Air Blood Pressure Mean: 94 Progress Note : Progress Note Workup to the extended was performed was unremarkable. Patient was offered further workup including chest x-ray as well as treatment with IV fluids. She declined and prefers to follow-up with her riverboat master which seems reasonable. ECG Initial ECG Impression Date: Nov 14, 2016 Initial ECG Impression Time: 15:40 Initial ECG Rate: 102 Initial ECG Rhythm: S.Tach Comment Sinus tachycardia with no ST elevation or depression. No abnormal intervals or axis deviation. Departure Impression Impression: Primary Impression: Palpitations Additional Impressions: Sinus tachycardia Throbbing headache Disposition: 01 HOME, SELF-CARE Condition: Stable Departure-Patient Inst. Decision time for Depature: 17:10 Referrals: NO,LOCAL PHYSICIAN (PCP/Family) Primary Care Physician Patient Instructions: Palpitations Add. Discharge Instructions: Follow-up with your primary care provider and riverboat master as soon as possible. Drink plenty of clear liquids. Return to care if symptoms worsen. Consider taking an antihistamine such as Claritin or Zyrtec for symptoms related to animal hair exposure. All discharge instructions reviewed with patient and/or family. Voiced understanding. Work/School Note: Work Release Form Date Seen in the Emergency Department: Nov 14, 2016 Return to Work: Nov 15, 2016 Restrictions: No Restrictions ALEXIS PRADO MD Nov 14, 2016 17:18
[2016-11-14 17:37] VITALS: BP 124/81
--- OUTSIDE RECORDS SUMMARY | 2016-11-14 19:01 | XMS REPORT | Clinical Summary ---
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 Set Up Operator Tool well woman exam V72.31 Resolved Suzan Boo [...] Caldera MD Localized adiposity ICD-278.1 Inactive Vishal uHi MD Shortness of breath ICD-786.05 Inactive Vishal [...] for closed fracture ICD-823.01 Inactive Suzan Boo [employer]UST PR[employer]FER Vaginal discharge ICD-623.5 Inactive Suzan Boo RUST PROOFER DYSURIA ICD-788.1 Inactive Suzan Boo [employer]UST PROOFER Cellulitis and abscess of breast ICD-611.0 Inactive Ahmet Carbajal MD Nondisplaced transverse fracture of shaft of left fibula, subsequent encounter for closed fracture with routine healing Inactive Suzan Boo [employer]UST [employer]OOFER Bronchitis, acute ICD-466.0 Inactive Ahmet aCrbajal MD Chucking Machine Set Up Operator Tool well woman exam ICD-V72.31 Inactive Suzan Boo [employer] Bronchitis, acute with mild bronchospasm ICD-466.0 Inactive Suzan Boo [employer] PROOFER Tracheitis ICD-464.10 Inactive Suzan Boo [employer]OOFER Impetigo ICD-684 Inactive Suzan Boo [employer]OOFER Furuncle of buttock ICD-680.5 Inactive Suzan Boo [employer]UST PROOFER Vaginal irritation ICD-623.9 Inactive Suzan Boo [employer]OOFER Scalding pain on urination ICD-788.1 Inactive Suzan Boo [employer] PROOFER Abdominal pain, right upper quadrant ICD-789.01 Inactive Suzan Boo [employer] PROOFER Dark urine ICD-791.9 Inactive Suzan Boo [employer]UST PROOFER Preop exam ICD-V72.84 Inactive Suzan Boo APRN Medication List Medication Instructions Start Date Stop Date Generic Name NDC Status Provider Patient Instruction JANUVIA 100 MG TABS Take one by mouth daily SITAGLIPTIN PHOSPHATE 83859499803 Active Malharvey Ziglari ASSOCIATE RESEARCH SCIENTIST Active METFORMIN HCL 500 MG [id number] one a day for a week, then 2 a day METFORMIN HCL 80237197853 Active Maliheh Ziglari ASSOCIATE RESEARCH SCIENTIST Active NYSTATIN 004240 UNIT/GM CREA apply three times a day to yeast rash NYSTATIN 54229267869 No Longer Active Maliheh Ziglari ASSOCIATE RESEARCH SCIENTIST Active BACTRIM DS 800-160 MG TABS 1 twice a day SULFAMETHOXAZOLE-TRIMETHOPRIM 93994069721 No Longer Active Maliheh Ziglari ASSOCIATE RESEARCH SCIENTIST Active MUPIROCIN 2 % OINT apply twice a day MUPIROCIN 19972354495 Active Suzan Boo APRN Active HAOPXWARLO-GTMG-SKMYSYOX 50-325-40 MG TABS 1 to 2 four times a day as needed for headache [id number] 67784542163 Active Suzan Boo APRN Active METOCLOPRAMIDE HCL 10 MG TABS 1 two times as needed for nausea and headaches METOCLOPRAMIDE HCL 15916771089 Active Meena Ortiz MA Active AMITIZA 24 MCG ORAL CAPS one capsule twice daily LUBIPROSTONE 54952456885 Active Suzan Boo APRN Active MIRALAX ORAL POWD 17GMS DAILY IN WATER POLYETHYLENE GLYCOL 3350 83034693730 No Longer Active Suzan Boo APRN Active LACTULOSE 10 GM/15ML ORAL SOLN 30mL oral BID for IBS-C LACTULOSE 95606192566 No Longer Active Suzan Boo APRN Active BACTRIM DS 800-160 MG TAB Take one (1) tablet by mouth twice a day for 5 days TRIMETHOPRIM-SULFAMETHOXAZOLE 10186923343 No Longer Active Suzan Boo APRN Active MUPIROCIN 2 % OINT apply twice a day MUPIROCIN 44736944537 No Longer Active Suzan Boo APRN Active BACTRIM DS 800-160 MG TABS 1 twice a day SULFAMETHOXAZOLE-TRIMETHOPRIM 25708632247 No Longer Active Suzan Boo APRN Active DIFLUCAN 150 MG TABS 1 by mouth for yeast FLUCONAZOLE 73087024037 No Longer Active Suzan Boo APRN Active LINZESS 290 MCG ORAL CAPS 1 tab 30 min prior to first meal each day. LINACLOTIDE 89326590508 No Longer Active Sheila Calderon LPN Active AMITIZA 8 MCG ORAL CAPS 1 tab BID LUBIPROSTONE 97039726341 No Longer Active Lynda Xiao LPN Active TESSALON PERLES 100 MG CAPS 1 three times a day as needed for cough BENZONATATE 65313650040 No Longer Active Suzan Boo APRN Active BACTRIM DS 800-160 MG TABS 1 twice a day SULFAMETHOXAZOLE-TRIMETHOPRIM 58381193024 No Longer Active Suzan Boo APRN Active DIFLUCAN 150 MG TABS 1 by mouth for yeast FLUCONAZOLE 71916089719 No Longer Active Suzan Boo APRN Active EQ NICOTINE 21 MG/24HR TRANS PT24 Apply daily to stop smoking NICOTINE 84836610359 No Longer Active Suzan Boo APRN Active PREDNISONE 10 MG TABS 2 daily for 5 days then 1 daily for 5 days PREDNISONE 45910368666 No Longer Active Suzan Boo APRN Active LEVAQUIN 500 MG TABS 1 daily for infection LEVOFLOXACIN 95605271970 No Longer Active Suzan Boo APRN Active TROPICAMIDE 0.5 % OPHTH SOLN 1 drop PRN eye spasms TROPICAMIDE 34769390715 No Longer Active Suzan Boo APRN Active PREDNISONE 20 MG TAB 1 tablet daily x 4 days PREDNISONE 96923814947 No Longer Active Suzan Boo APRN Active ACETAMINOPHEN-CODEINE 120-12 MG/5ML SOLN 5 ml by mouth every 4-6 hours if needed for cough ACETAMINOPHEN-CODEINE 08854464800 No Longer Active Suzan Boo APRN Active KEFLEX 500 MG CAP 1 po qid CEPHALEXIN 05411420625 No Longer Active Suzan Boo APRN Active FLOVENT HFA 110 MCG/ACT AERO 2 puffs inhaled b.i.d. FLUTICASONE PROPIONATE HFA 61413742544 Active Renzo Thornton DO Active RISPERDAL 4 MG ORAL TABS 1 tab at bedtime RISPERIDONE 50416991169 Active Samantha Rothman RMA Active ZOFRAN 4 MG TABS 1 po q6hr PRN Nausea ONDANSETRON HCL No Longer Active Suzan Boo APRN Active FLUTICASONE PROPIONATE 50 MCG/ACT SUSP 2 sprays each nostril daily before bed. FLUTICASONE PROPIONATE 29487132277 No Longer Active Suzan Boo APRN Active ASPIRIN 325 MG ORAL TABS 1 tab q.d ASPIRIN 85879632049 No Longer Active Suzan Boo APRN Active HALOPERIDOL 10 MG ORAL TABS 1 tab q.d HALOPERIDOL 41361970563 No Longer Active Suzan Boo APRN Active GUAIFENESIN-CODEINE 100-10 MG/5ML SYRP 5ml every 4 to 6 hours as needed for cough GUAIFENESIN-CODEINE 79772602838 No Longer Active Suzan Boo APRN Active ZITHROMAX Z-EARNEST 250 MG TABS 2 today and then 1 daily for 4 days AZITHROMYCIN 69009361132 No Longer Active Suzan Boo APRN Active CLONAZEPAM 1 MG ORAL TABS 1 twice a day and an additional 1 tablet every other day as needed for pseudoseizures or anxiety CLONAZEPAM 02706854242 Active Suzan Boo APRN Active HYDROCODONE-ACETAMINOPHEN 5-325 MG ORAL TABS 1 tab two times a day HYDROCODONE-ACETAMINOPHEN 90257030270 No Longer Active Ahmet Carbajal MD Active LAMICTAL 100 MG ORAL TABS 1 tab 2 times qd. LAMOTRIGINE 33161233366 Active Ahmet Carbajal MD Active PREDNISONE 20 MG TABS 2 daily for 5 days then 1 daily for 5 days PREDNISONE 59657300046 No Longer Active Ahmet Carbajal MD Active FLUTICASONE PROPIONATE 50 MCG/ACT SUSP 1 to 2 sprays each nostril daily for allergies FLUTICASONE PROPIONATE 90043654103 Active Tila Valenzuela Active BENADRYL 25 MG CAP 4 po at bedtime for insomnia DIPHENHYDRAMINE HCL 48245685903 No Longer Active Ahmet Carbajal MD Active ADVAIR DISKUS 250-50 MCG/DOSE INH AEPB 1 puff twice a day for asthma FLUTICASONE-SALMETEROL 65724607557 No Longer Active Ahmet Carbajal MD Active KLONOPIN 1 MG ORAL TABS 1 tab po TID CLONAZEPAM 84209122812 No Longer Active Ahmet Carbajal MD Active ABILIFY MAINTENA 400 MG IM SUSR 400mg injection every 26 days ARIPIPRAZOLE 48028915653 No Longer Active Ahmet Carbajal MD Active TRAMADOL HCL 50 MG TABS 1/2-1 tab TID PRN TRAMADOL HCL 51042630943 No Longer Active Ahmet Carbajal MD Active BACTRIM DS 800-160 MG TABS 1 twice a day SULFAMETHOXAZOLE- TRIMETHOPRIM 66200551023 No Longer Active Ahmet Carbajal MD Active PROAIR HFA 108 (90 BASE) MCG/ACT AERS 2 puffs four times a day as needed 2015 ALBUTEROL SULFATE 89830142843 Active Honey Wensinainick RUST PROOFER Active MONISTAT 7 COMBO PACK WOODROW 100 & 2 MG-% (9GM) VAG KIT 1 applicatorful per vagina q pm x 7 MICONAZOLE NITRATE 87472847378 No Longer Active Ahmet Carbajal MD Active FLAGYL 500 MG TAB 1 tablet by mouth bid METRONIDAZOLE 43442017794 No Longer Active Ahmet Carbajal MD Active OXYCODONE HCL ER 10 MG ORAL T12A 1/2 tab by mouth every 4 hours prn OXYCODONE HCL 04822712382 No Longer Active Ahmet Carbajal MD Active METHYLPREDNISOLONE 4 MG ORAL TABS po daily METHYLPREDNISOLONE 62922540888 No Longer Active Ahmet Carbajal MD Active LEVOFLOXACIN 500 MG ORAL TABS po daily LEVOFLOXACIN 75484818561 No Longer Active Ahmet Carbajal MD Active VIIBRYD 10 MG ORAL TABS Take 1 tablet once a day VILAZODONE HCL 17598775139 No Longer Active Ahmet Carbajal MD Active TOPAMAX 50 MG ORAL TABS 1 tab twice daily TOPIRAMATE 56996478246 No Longer Active Ahmet Carbajal MD Active DICLOFENAC SODIUM 50 MG TBEC 1 tablet by mouth four times daily PRN Pain 2015 DICLOFENAC SODIUM 42805521534 No Longer Active Ahmet Carbajal MD Active ADZENYS XR-ODT 6.3 MG ORAL TBED 1 tab po daily for ADHD AMPHETAMINE 78042616228 No Longer Active Ahmet Carbajal MD Active CHANTIX 1 MG TABS 1 twice a day to help quit smoking VARENICLINE TARTRATE 36567137416 No Longer Active Dipika Burgos MD Active CHANTIX STARTING MONTH EARNEST 0.5 MG X 11 & 1 MG X 42 TABS take as directed 2015 VARENICLINE TARTRATE 09971356626 No Longer Active Dipika Burgos MD Active TESSALON PERLES 100 MG CAP 1 to 2 tablets by mouth 3 times daily as needed for cough BENZONATATE 35191343841 No Longer Active Luigi Martínez APRN Active IMITREX 50 MG ORAL TABS 0.5 po x 1 PRN Headache. May repeat dose x 1 in 2 hours if needed SUMATRIPTAN SUCCINATE 29789611636 Active TAMARA Casey Active HYDROCODONE-ACETAMINOPHEN 5-325 MG TABS 1 to 2 four times a day as needed for pain use until can be seen by specialist HYDROCODONE- ACETAMINOPHEN 20248034492 No Longer Active Vishal Hui MD Active PROAIR HFA 108 (90 BASE) MCG/ACT AERS 2 puffs four times a day as needed 2015 ALBUTEROL SULFATE 15089502154 No Longer Active Vishal uHi MD Active PREDNISONE 20 MG TABS 2 daily for 5 days then 1 daily for 5 days PREDNISONE 35117072502 No Longer Active Vishal Hui MD Active ZITHROMAX Z-EARNEST 250 MG TABS 2 today and then 1 daily for 4 days AZITHROMYCIN 48341267782 No Longer Active Vishal Hui MD Active DICLOFENAC POTASSIUM TABS Take 1 tablet twice a day (pt. is not sure of the dose.) DICLOFENAC POTASSIUM TABS 62156477915 No Longer Active Vishal Hui MD Active VERAPAMIL HCL ER 120 MG ORAL CR-TABS Take 1 tablet by mouth twice a day. VERAPAMIL HCL 29907486497 Active Vishal Hui MD Active FLAGYL 500 MG TAB 1 tablet by mouth bid METRONIDAZOLE 25542508793 No Longer Active Vishal Hui MD Active VALIUM 5 MG TAB Take 1-2 tablets daily DIAZEPAM 69075649853 No Longer Active Fabiola Johnson APRN Active METOPROLOL TARTRATE 25 MG ORAL TABS 1/2 tablet twice daily for heart rate and blood pressure METOPROLOL TARTRATE 90630189767 No Longer Active Fabiola Johnson APRN Active MIRALAX PACK 1 po qd PRN Constipation POLYETHYLENE GLYCOL 3350 50558061591 No Longer Active Ahmet Carbajal MD Active MINIPRESS 2 MG CAPS 4 cap po at night PRAZOSIN HCL 63528972580 No Longer Active Ahmet Carbajal MD Active PIROXICAM 20 MG CAPS 1 cap po qd PRN Pain PIROXICAM 90804129984 No Longer Active Ahmet Carbajal MD Active TRAMADOL HCL 50 MG TABS 1-2 po TID PRN Pain TRAMADOL HCL 46273531877 No Longer Active Ahmet Carbajal MD Active METOPROLOL TARTRATE 50 MG TAB 1 po bid METOPROLOL TARTRATE 84882252061 No Longer Active Ahmet Carbajal MD Active ABILIFY 15 MG ORAL TABS 1 tab daily ARIPIPRAZOLE 37710346993 No Longer Active Ahmet Carbajal MD Active PROZAC 20 MG ORAL CAPS 1 tab daily FLUOXETINE HCL 47179427565 No Longer Active Ahmet Carbajal MD Active AMBIEN 5 MG ORAL TABS 1 tab at bedtime ZOLPIDEM TARTRATE 98465273709 No Longer Active Ahmet Carbajal MD Active PREDNISONE 20 MG TAB 2 tabs daily for 4 days, 1 tab daily for 4 days, 1/2 tab daily for 4 days PREDNISONE 16167197848 No Longer Active Ahmet Carbajal MD Active KEFLEX 500 MG CAP 1 po TID x 10 days CEPHALEXIN 81444290400 No Longer Active Vishal Hui MD Active SAPHRIS 5 MG SUBL 1 po bid ASENAPINE MALEATE 46944553407 No Longer Active Luigi Martínez APRN Active LATUDA 80 MG TABS Take one by mouth daily LURASIDONE HCL 94948872430 No Longer Active Pacollina Mauricio NORIEGA Active AMLODIPINE BESYLATE 5 MG TABS 1 tablet by mouth daily AMLODIPINE BESYLATE 25324313745 No Longer Active Pacolljanee Martínez APRN Active AMITRIPTYLINE HCL 100 MG TAB one at hs AMITRIPTYLINE HCL 89437222017 No Longer Active Vishal Hui MD Active TRAZODONE HCL 100 MG TAB take 1 at bedtime TRAZODONE HCL 29128009681 No Longer Active Vishal Hui MD Active VYVANSE 40 MG CAPS 1 daily, LISDEXAMFETAMINE DIMESYLATE 00279532987 No Longer Active Vishal Hui MD Active IBUPROFEN 600 MG TAB 1 po TID PRN IBUPROFEN 75075100553 No Longer Active Vishal Hui MD Active PROZAC 20 MG CAP Take one by mouth daily FLUOXETINE HCL 22568654971 No Longer Active Vishal Hui MD Active BACTRIM DS 800-160 MG TABS 1 pill by mouth twice daily SULFAMETHOXAZOLE-TRIMETHOPRIM 86279270462 No Longer Active Sahara Rodriguez MD PhD Active DIFLUCAN 150 MG TAB 1 tablet by mouth daily FLUCONAZOLE 59814875659 No Longer Active Vishal Hui MD Active TIZANIDINE HCL 4 MG TABS 1 po q6hr PRN Muscle Spasm/Back Pain TIZANIDINE HCL 22678442431 Active TAMARA Casey Active CLINDAMYCIN HCL 150 MG CAPS 1 four times a day CLINDAMYCIN HCL 03821117479 No Longer Active Neeraj Collins MD Active KEFLEX 500 MG ORAL CAPS 1 cap QID by mouth CEPHALEXIN 56624856723 No Longer Active Neeraj Collnis MD Active DIFLUCAN 150 MG TABS 1 pill every other day x 2 doses FLUCONAZOLE 01111448228 No Longer Active Sahara Rodriguez MD PhD Active MELATONIN 3 MG CAPS 2 po q hs MELATONIN 41953873953 No Longer Active Sahara Rodriguez MD PhD Active MULTIVITAMINS CAPS Take one by mouth daily MULTIPLE VITAMIN 51018365873 No Longer Active Sahara Rodriguez MD PhD Active BACTRIM DS 800-160 MG TAB 1 tab by mouth twice daily TRIMETHOPRIM-SULFAMETHOXAZOLE 50470097983 No Longer Active Sahara Rodriguez MD PhD Active [facility] PROBIOTIC ORAL CHEW 2 daily po PROBIOTIC PRODUCT 82162279059 No Longer Active Sahara Rodriguez MD PhD Active BACTRIM DS 800-160 MG TABS 1 po BID x 7 days SULFAMETHOXAZOLE-TRIMETHOPRIM 96209681691 No Longer Active Vishal Hui MD Active CHANTIX STARTING MONTH EARNEST 0.5 MG X 11 & 1 MG X 42 TABS 0.5mg daily for 3 days , then 0.5mg BID for 4 days, then 1mg BID VARENICLINE TARTRATE 04091908887 No Longer Active TAMARA Gray Active VERAPAMIL HCL CR 120 MG TAB CR 1 po bid VERAPAMIL HCL 50568583732 No Longer Active Vishal Hui MD Active METOPROLOL SUCCINATE 50 MG TB24 1 tablet by mouth daily METOPROLOL SUCCINATE 75177913277 No Longer Active Vishal Hui MD Active SAPHRIS 10 MG SUBL 1 tab po bid ASENAPINE MALEATE 27148686272 No Longer Active Vishal Hui MD Active LISINOPRIL 20 MG TABS 1 tab po qd LISINOPRIL 79787486060 No Longer Active Vishal Hui MD Active LATUDA 20 MG TABS Take one by mouth daily LURASIDONE HCL 49595589578 No Longer Active Vishal Hui MD Active TRAZODONE HCL 50 MG TABS 1/2 tab po qd prn for anxiety TRAZODONE HCL 99014240396 No Longer Active Vishal Hui MD Active OMEPRAZOLE 20 MG TBEC 1 po q a.m. 30min prior to first food intake OMEPRAZOLE 41482484734 Active TAMARA Casey Active RANITIDINE HCL 150 MG CAPS 1 twice a day RANITIDINE HCL 50901754945 Active Lynda Xiao LPN Active LINZESS 290 MCG CAPS Take one by mouth daily LINACLOTIDE 08502177635 No Longer Active Vishal Hui MD Active SAPHRIS 5 MG SUBL 1 tab po qd ASENAPINE MALEATE 56822791408 No Longer Active Vishal Hui MD Active ZALEPLON 10 MG CAPS 1 cap po every other night ZALEPLON 79853777031 No Longer Active Vishal Hui MD Active LYRICA 50 MG CAPS 1 tab po TID PREGABALIN 27244381453 No Longer Active Vishal Hui MD Active LORATADINE 10 MG TABS 1 tab po qd LORATADINE 27723727746 No Longer Active Vishal Hui MD Active VERAPAMIL HCL ER 180 MG CR-TABS 1 tab po bid VERAPAMIL HCL 60161550299 No Longer Active Vishal Hui MD Active MIRALAX POWD 1 capfull once daily POLYETHYLENE GLYCOL 3350 79229244822 No Longer Active Vishal Hui MD Active PREDNISONE 20 MG TABS 1 tab po qd PREDNISONE 55523477966 No Longer Active Renzo Thornton DO Active LEVOFLOXACIN 500 MG TABS 1 tab po qd LEVOFLOXACIN 52326602922 No Longer Active Renzo Thornton DO Active BUSPIRONE HCL 15 MG TABS 1 tab po TID BUSPIRONE HCL 23154123232 No Longer Active Renzo Thornton DO Active BENZTROPINE MESYLATE 1 MG TABS 1 tab po qd BENZTROPINE MESYLATE 16329584149 No Longer Active Renzo Thornton DO Active ATENOLOL 25 MG TABS 1 tab po qd ATENOLOL 54797762853 No Longer Active Renzo Thornton DO Active ESCITALOPRAM OXALATE 20 MG TABS 1 tab po qd ESCITALOPRAM OXALATE 83499886689 No Longer Active Renzo Thornton DO Active ADVAIR DISKUS 250-50 MCG/DOSE AEPB 1 puff BID FLUTICASONE-SALMETEROL 77328509184 No Longer Active Renzo Thornton DO Active PREDNISONE 20 MG TAB 2 tabs daily for 3 days, 1 tab daily for 3 days, 1/2 tab daily for 2 days PREDNISONE 26776220397 No Longer Active Vishal Hui MD Active CEFDINIR 300 MG CAPS by mouth twice a day CEFDINIR 25819381036 No Longer Active Vishal Hui MD Active LANSOPRAZOLE 30 MG CPDR 1 cap po qd LANSOPRAZOLE 59453550089 No Longer Active Vishal Hui MD Active BACLOFEN 20 MG TABS 1 tab po tid BACLOFEN 00698341570 No Longer Active Vishal Hui MD Active ADVAIR DISKUS 250-50 MCG/DOSE AEPB 1 puff BID ADVAIR DISKUS 250-50 MCG/DOSE AEPB FLUTICASONE-SALMETEROL Inactive ESCITALOPRAM OXALATE 20 MG TABS 1 tab po qd ESCITALOPRAM OXALATE 20 MG TABS 373581 ESCITALOPRAM OXALATE Inactive ATENOLOL 25 MG TABS 1 tab po qd ATENOLOL 25 MG TABS 621310 ATENOLOL Inactive BENZTROPINE MESYLATE 1 MG TABS 1 tab po qd BENZTROPINE MESYLATE 1 MG TABS 701335 BENZTROPINE MESYLATE Inactive BUSPIRONE HCL 15 MG TABS 1 tab po TID BUSPIRONE HCL 15 MG TABS 095874 BUSPIRONE HCL Inactive LEVOFLOXACIN 500 MG TABS 1 tab po qd LEVOFLOXACIN 500 MG TABS 802606 LEVOFLOXACIN Inactive PREDNISONE 20 MG TABS 1 tab po qd PREDNISONE 20 MG TABS 752971 PREDNISONE Inactive MIRALAX POWD 1 capfull once daily MIRALAX POWD 083550 POLYETHYLENE GLYCOL 3350 Inactive VERAPAMIL HCL ER 180 MG CR-TABS 1 tab po bid VERAPAMIL HCL ER 180 MG CR-TABS VERAPAMIL HCL Inactive LORATADINE 10 MG TABS 1 tab po qd LORATADINE 10 MG TABS 813870 LORATADINE Inactive LYRICA 50 MG CAPS 1 tab po TID LYRICA 50 MG CAPS PREGABALIN Inactive ZALEPLON 10 MG CAPS 1 cap po every other night ZALEPLON 10 MG CAPS 305612 ZALEPLON Inactive SAPHRIS 5 MG SUBL 1 tab po qd SAPHRIS 5 MG SUBL ASENAPINE MALEATE Inactive TRAZODONE HCL 50 MG TABS 1/2 tab po qd prn for anxiety TRAZODONE HCL 50 MG TABS 787974 TRAZODONE HCL Inactive LATUDA 20 MG TABS Take one by mouth daily LATUDA 20 MG TABS LURASIDONE HCL Inactive LISINOPRIL 20 MG TABS 1 tab po qd LISINOPRIL 20 MG TABS 399005 LISINOPRIL Inactive SAPHRIS 10 MG SUBL 1 [...] twice daily BACTRIM DS 800-160 MG TAB 798890 TRIMETHOPRIM-SULFAMETHOXAZOLE Inactive MULTIVITAMINS CAPS Take one by mouth daily MULTIVITAMINS CAPS MULTIPLE VITAMIN Inactive MELATONIN 3 MG CAPS 2 po q hs MELATONIN 3 MG CAPS 344873 MELATONIN Inactive KEFLEX 500 MG ORAL CAPS 1 cap QID by mouth KEFLEX 500 MG ORAL CAPS 383879 CEPHALEXIN Inactive CLINDAMYCIN HCL 150 MG CAPS 1 four times a day CLINDAMYCIN HCL 150 MG CAPS 492121 CLINDAMYCIN HCL Inactive DIFLUCAN 150 MG TAB 1 tablet by mouth daily DIFLUCAN 150 MG TAB 650844 FLUCONAZOLE Inactive PROZAC 20 MG CAP Take one by mouth daily PROZAC 20 MG CAP 789518 FLUOXETINE HCL Inactive IBUPROFEN 600 MG TAB 1 po TID PRN IBUPROFEN 600 MG TAB 478820 IBUPROFEN Inactive VYVANSE 40 MG CAPS 1 daily, VYVANSE 40 MG CAPS LISDEXAMFETAMINE DIMESYLATE Inactive TRAZODONE HCL 100 MG TAB take 1 at bedtime TRAZODONE HCL 100 MG TAB 259062 TRAZODONE HCL Inactive AMITRIPTYLINE HCL 100 MG TAB one at hs AMITRIPTYLINE HCL 100 MG TAB 285167 AMITRIPTYLINE HCL Inactive AMLODIPINE BESYLATE 5 MG TABS 1 tablet by mouth daily AMLODIPINE BESYLATE 5 MG TABS 692959 AMLODIPINE BESYLATE Inactive LATUDA 80 MG TABS Take one by mouth daily LATUDA 80 MG TABS LURASIDONE HCL Inactive SAPHRIS 5 MG SUBL 1 po bid SAPHRIS 5 MG SUBL ASENAPINE MALEATE Inactive PREDNISONE 20 MG TAB 2 tabs daily for 4 days, 1 tab daily for 4 days, 1/2 tab daily for 4 days PREDNISONE 20 MG TAB 151952 PREDNISONE Inactive AMBIEN 5 MG ORAL TABS 1 tab at bedtime AMBIEN 5 MG ORAL TABS 478385 ZOLPIDEM TARTRATE Inactive PROZAC 20 MG ORAL CAPS 1 tab daily PROZAC 20 MG ORAL CAPS 330683 FLUOXETINE HCL Inactive ABILIFY 15 MG ORAL TABS 1 tab daily ABILIFY 15 MG ORAL TABS 384803 ARIPIPRAZOLE Inactive METOPROLOL TARTRATE 50 MG TAB 1 po bid METOPROLOL TARTRATE 50 MG TAB 277343 METOPROLOL TARTRATE Inactive TRAMADOL HCL 50 MG TABS 1-2 po TID PRN Pain TRAMADOL HCL 50 MG TABS 160745 TRAMADOL HCL Inactive PIROXICAM 20 MG CAPS 1 cap po qd PRN Pain PIROXICAM 20 MG CAPS 774984 PIROXICAM Inactive MINIPRESS 2 MG CAPS 4 cap po at night MINIPRESS 2 MG CAPS 590471 PRAZOSIN HCL Inactive MIRALAX PACK 1 po qd PRN Constipation MIRALAX PACK 632280 POLYETHYLENE GLYCOL 3350 Inactive METOPROLOL TARTRATE 25 MG ORAL TABS 1/2 tablet twice daily for heart rate and blood pressure METOPROLOL TARTRATE 25 MG ORAL TABS 545293 METOPROLOL TARTRATE Inactive VALIUM 5 MG TAB Take 1-2 tablets daily VALIUM 5 MG TAB 718481 DIAZEPAM Inactive FLAGYL 500 MG TAB 1 tablet by mouth bid FLAGYL 500 MG TAB 717449 METRONIDAZOLE Inactive DICLOFENAC POTASSIUM TABS Take 1 tablet twice a day (pt. is not sure of the dose.) DICLOFENAC POTASSIUM TABS DICLOFENAC POTASSIUM TABS Inactive ZITHROMAX Z-EARNEST 250 MG TABS 2 today and then 1 daily for 4 days ZITHROMAX Z-EARNEST 250 MG TABS 2882574 AZITHROMYCIN Inactive PREDNISONE 20 MG TABS 2 daily for 5 days then 1 daily for 5 days PREDNISONE 20 MG TABS 198805 PREDNISONE Inactive PROAIR HFA 108 (90 BASE) MCG/ACT AERS 2 puffs four times a day as needed 2015 PROAIR HFA 108 (90 BASE) MCG/ACT AERS ALBUTEROL SULFATE Inactive HYDROCODONE-ACETAMINOPHEN 5-325 MG TABS 1 to 2 four times a day as needed for pain use until can be seen by specialist HYDROCODONE- ACETAMINOPHEN 5-325 MG TABS 752122 HYDROCODONE-ACETAMINOPHEN Inactive TESSALON PERLES 100 MG CAP 1 to 2 tablets by mouth 3 times daily as needed for cough TESSALON PERLES 100 MG CAP 789653 BENZONATATE Inactive CHANTIX STARTING MONTH EARNEST 0.5 [...] Pain 2015 DICLOFENAC SODIUM 50 MG TBEC 037711 DICLOFENAC SODIUM Inactive TOPAMAX 50 MG ORAL TABS 1 tab twice daily TOPAMAX 50 MG ORAL TABS 659130 TOPIRAMATE Inactive VIIBRYD 10 MG ORAL TABS Take 1 tablet once a day VIIBRYD 10 MG ORAL TABS VILAZODONE HCL Inactive LEVOFLOXACIN 500 MG ORAL TABS po daily LEVOFLOXACIN 500 MG ORAL TABS 035683 LEVOFLOXACIN Inactive METHYLPREDNISOLONE 4 MG ORAL TABS po daily METHYLPREDNISOLONE 4 MG ORAL TABS 089725 METHYLPREDNISOLONE Inactive OXYCODONE HCL ER 10 MG ORAL T12A 1/2 tab by mouth every 4 hours prn OXYCODONE HCL ER 10 MG ORAL T12A OXYCODONE HCL Inactive FLAGYL 500 MG TAB 1 tablet by mouth bid FLAGYL 500 MG TAB 961472 METRONIDAZOLE Inactive MONISTAT 7 COMBO PACK WOODROW 100 & 2 MG-% (9GM) VAG KIT 1 applicatorful per vagina q pm x 7 MONISTAT 7 COMBO PACK WOODROW 100 & 2 MG-% (9GM) VAG KIT MICONAZOLE NITRATE Inactive BACTRIM DS 800-160 MG TABS 1 twice a day BACTRIM DS 800-160 MG TABS 488560 SULFAMETHOXAZOLE-TRIMETHOPRIM Inactive TRAMADOL HCL 50 MG TABS 1/2-1 tab TID PRN TRAMADOL HCL 50 MG TABS 438309 TRAMADOL HCL Inactive ABILIFY MAINTENA 400 MG IM SUSR 400mg injection every 26 days ABILIFY MAINTENA 400 MG IM SUSR ARIPIPRAZOLE Inactive KLONOPIN 1 MG ORAL TABS 1 tab po TID KLONOPIN 1 MG ORAL TABS 377945 CLONAZEPAM Inactive ADVAIR DISKUS 250-50 MCG/DOSE INH AEPB 1 puff twice a day for asthma ADVAIR DISKUS 250-50 MCG/DOSE INH AEPB FLUTICASONE- SALMETEROL Inactive BENADRYL 25 MG CAP 4 po at bedtime for insomnia BENADRYL 25 MG CAP DIPHENHYDRAMINE HCL Inactive PREDNISONE 20 MG TABS 2 daily for 5 days then 1 daily for 5 days PREDNISONE 20 MG TABS [id number] PREDNISONE Inactive HYDROCODONE-ACETAMINOPHEN 5-325 MG ORAL TABS 1 tab two times a day HYDROCODONE-ACETAMINOPHEN 5-325 MG ORAL TABS [id number] HYDROCODONE-ACETAMINOPHEN Inactive ZITHROMAX Z-EARNEST 250 MG TABS 2 today and then 1 daily for 4 days ZITHROMAX Z-EARNEST 250 MG TABS [id number] AZITHROMYCIN Inactive GUAIFENESIN-CODEINE 100-10 MG/5ML SYRP 5ml every 4 to 6 hours as needed for cough GUAIFENESIN-CODEINE 100-10 MG/5ML SYRP [id number] GUAIFENESIN-CODEINE Inactive HALOPERIDOL 10 MG ORAL TABS 1 tab q.d HALOPERIDOL 10 MG ORAL TABS 495289 HALOPERIDOL Inactive ASPIRIN 325 MG ORAL TABS 1 tab q.d ASPIRIN 325 MG ORAL TABS 152528 ASPIRIN Inactive FLUTICASONE PROPIONATE 50 MCG/ACT SUSP 2 sprays each nostril daily before bed. FLUTICASONE PROPIONATE 50 MCG/ACT SUSP 9942810 FLUTICASONE PROPIONATE Inactive ZOFRAN 4 MG TABS 1 po q6hr PRN Nausea ZOFRAN 4 MG TABS 923515 ONDANSETRON HCL Inactive KEFLEX 500 MG CAP 1 po qid KEFLEX 500 MG CAP 596901 CEPHALEXIN Inactive ACETAMINOPHEN-CODEINE 120-12 MG/5ML SOLN 5 ml by mouth every 4-6 hours if needed for cough ACETAMINOPHEN-CODEINE 120-12 MG/5ML SOLN 193856 ACETAMINOPHEN-CODEINE Inactive PREDNISONE 20 MG TAB 1 tablet daily x 4 days PREDNISONE 20 MG TAB 785570 PREDNISONE Inactive TROPICAMIDE 0.5 % OPHTH SOLN 1 drop PRN eye spasms TROPICAMIDE 0.5 % OPHTH SOLN 914231 TROPICAMIDE Inactive LEVAQUIN 500 MG TABS 1 daily for infection LEVAQUIN 500 MG TABS 278921 LEVOFLOXACIN Inactive PREDNISONE 10 MG TABS 2 [...] for cough TESSALON PERLES 100 MG CAPS 504993 BENZONATATE Inactive AMITIZA 8 MCG ORAL CAPS 1 tab BID AMITIZA 8 MCG ORAL CAPS LUBIPROSTONE Inactive LINZESS 290 MCG ORAL CAPS 1 tab 30 min prior to first meal each day. LINZESS 290 MCG ORAL CAPS LINACLOTIDE Inactive DIFLUCAN 150 MG TABS 1 by mouth for yeast DIFLUCAN 150 MG TABS 296856 FLUCONAZOLE Inactive BACTRIM DS 800-160 MG TABS 1 twice a day BACTRIM DS 800-160 MG TABS 19820521 SULFAMETHOXAZOLE-TRIMETHOPRIM Inactive MUPIROCIN 2 % OINT apply twice a day MUPIROCIN 2 % OINT 426531 MUPIROCIN Inactive BACTRIM DS 800-160 MG TAB Take one (1) tablet by mouth twice a day for 5 days BACTRIM DS 800-160 MG TAB 713528 TRIMETHOPRIM- SULFAMETHOXAZOLE Inactive LACTULOSE 10 GM/15ML ORAL SOLN 30mL oral BID for IBS-C LACTULOSE 10 GM/15ML ORAL SOLN 968505 LACTULOSE Inactive MIRALAX ORAL POWD 17GMS DAILY IN WATER MIRALAX ORAL POWD 072006 POLYETHYLENE GLYCOL 3350 Inactive BACTRIM DS 800-160 MG TABS 1 twice a day BACTRIM DS 800-160 MG TABS 19820521 SULFAMETHOXAZOLE-TRIMETHOPRIM Inactive NYSTATIN 048002 UNIT/GM CREA apply three times a day to yeast rash NYSTATIN 723018 UNIT/GM CREA 617214 NYSTATIN Inactive CEFDINIR 300 MG CAPS by mouth twice a day CEFDINIR 300 MG CAPS 461163 CEFDINIR Inactive PREDNISONE 20 MG TAB 2 tabs daily for 3 days, 1 tab daily for 3 days, 1/2 tab daily for 2 days PREDNISONE 20 MG TAB 413408 PREDNISONE Inactive BACTRIM DS 800-160 MG TABS 1 po BID x 7 days BACTRIM DS 800-160 MG TABS 19820521 SULFAMETHOXAZOLE-TRIMETHOPRIM Inactive DIFLUCAN 150 MG TABS 1 pill every other day x 2 doses DIFLUCAN 150 MG TABS 490222 FLUCONAZOLE Inactive BACTRIM DS 800-160 MG TABS 1 pill by mouth twice daily BACTRIM DS 800-160 MG TABS 19820521 SULFAMETHOXAZOLE-TRIMETHOPRIM Inactive KEFLEX 500 MG CAP 1 po TID x 10 days KEFLEX 500 MG CAP 031408 CEPHALEXIN Inactive Advance Directives Directive Description Start [...] temperature weight E&M 273.5 [lb_av] Weight Measured Diagnostic Results Date Name [...] % 11.0-15.0 platelet count 443 THOUSAND/UL 10*3/mm3 951-998 8009/03/01 mean platelet volume 8.2 fL 7.5-12.5 leukocyte [...] % 11.0-15.0 platelet count 349 THOUSAND/UL 10*3/mm3 448-243 0821/04/12 mean platelet volume 8.4 fL 7.5-12.5 Lab Report: CBC W/DIFF, Comp. Metabolic Panel, HGBA1C, Magnesium - Chemistry sodium, serum 141 mmol/L 274-198 3041/07/24 carbon dioxide, venous blood 27.8 mmol/L 21.0-32.0 [...] 369 10^3/MM^3 10*3/mm3 142-424 Lab Report: Chlamydia/GC APTIMA/94544 - Lab chlamydia DNA probe NOT DETECTED NOT DETECTED Lab Report: Chlamydia/GC APTIMA/64452 - Microbiology Neisseria gonorrhoeae DNA probe NOT DETECTED NOT DETECTED Lab Report: Chlamydia/GC APTIMA/23919, Urinalysis, Complete, with Reflex ... - Lab chlamydia DNA probe NOT DETECTED NOT DETECTED Lab Report: Chlamydia/GC APTIMA/47587, Urinalysis, Complete, with Reflex ... - Microbiology Neisseria gonorrhoeae DNA probe NOT DETECTED NOT DETECTED Lab Report: Chlamydia/GC APTIMA/59434, Urinalysis, Complete, with Reflex ... - Urinalysis microalbumin/total urine volume 2 mg/L Units converted. See lab report for original value. microalbumin/creatinine ratio, urine 9 MCG/MG CREAT mg/L <30 Lab Report: Comp. Metabolic Panel - Chemistry sodium, serum 140 mmol/L 229-788 6267/06/28 carbon dioxide, venous blood 23.8 mmol/L 21.0-32.0 [...] negative Encounters Code Encounter Date Provider Facility CPT-41088 Level 5 Est. Patient 12:01:37 CDT Maude Miranda [facility] CPT-99095 Level 3 Est. Patient 11:36:47 CDT Suzan Jefferson [facility] CPT-45329 Level 3 Est. Patient 10:53:17 CDT Suzan Jefferson [facility] CPT-29400 Level 3 Est. [facility] 11:08:35 [facility] Level 3 Est. Patient 15:55:20 CDT [facility] CPT-44687 Level 4 Est. Patient 10:49:34 CDT Suzan Rajeev [facility] CPT-69837 Level 3 Est. Patient 10:00:25 CDT Suzan Boo [facility] CPT-93147 Level 3 Est. Patient 10:29:30 CDT Suzan Boo [facility] CPT-18105 Level 3 Est. Patient 11:04:38 CDT Renzo Thornton [facility] CPT-39801 Level 3 Est. Patient 11:15:58 [employer] Renzo Thornton [facility] CPT-20917 Level 3 Est. Patient 15:28:23 [employer] Suzan Boo [facility] CPT-07802 Level 4 Est. Patient 10:20:54 [employer] Suzan Boo [facility] CPT-60647 Level 3 Est. Patient 11:47:37 [employer]ATION [employer] Ahmet Carbajal MD [facility] CPT-52946 Level 3 Est. Patient 10:40:11 [employer] Ahmet Carbajal MD [facility] CPT-85638 Level 3 Est. Patient 15:07:06 [employer] Neeraj Collins MD [facility] CPT-12622 Level 4 Est. Patient 14:45:00 [employer] Ahmet Carbajal MD [facility] CPT-53404 Level 3 Est. Patient 13:59:59 CDT Luigi Martínez [facility] CPT-56039 Level 3 Est. Patient 18:18:53 CDT Neeraj Collins MD [facility] CPT-86399 Level 3 Est. Patient 15:50:44 CDT Vishal Hui MD [facility] CPT-82611 Level 3 Est. Patient 11:36:17 CDT Ahmet Carbajal MD [facility] CPT-26556 Level 3 Est. Patient 13:29:16 CDT Vishal Hui MD [facility] CPT-48596 Level 3 Est. Patient 14:27:52 CDT Neeraj Collins MD [facility] CPT-55391 Level 3 Est. Patient 08:56:03 CDT Luigi Martínez [facility] CPT-75695 Level 4 Est. Patient 12:11:48 CDT Fabiola Johnson [facility] CPT-03837 Level 3 New Patient 16:53:37 CDT Albert Caldera MD [facility] CPT-85980 Level 3 Est. Patient 11:25:49 CDT Renzo Thornton DO [facility] CPT-36751 Level 3 Est. Patient 15:22:01 CDT Ahmet Carbajal MD [facility] CPT-26164 Level 4 Est. Patient 09:00:51 [employer] Vishal Hui MD [facility] CPT-66419 Level 3 Est. Patient 11:37:33 IM[employer]ATION [employer] Vishal Hui MD [facility] CPT-32752 Level 3 Est. Patient 08:41:09 [employer]ATION [employer] Vishal Hui MD [facility] CPT-36633 Level 4 Est. Patient 10:19:35 [employer]ATION [employer] Vishal Hui MD [facility] CPT-92335 Level 3 Est. Patient 13:35:45 CDT Vishal Hui MD [facility] CPT-94381 Level 4 Est. Patient 10:08:37 CDT Vishal Hui MD [facility] CPT-93419 Level 3 Est. Patient 11:22:10 CDT Vishal Hiu MD [facility] CPT-14638 Level 3 Est. Patient 11:03:32 CDT Sahara Rodriguez MD PhD [facility] CPT-08776 Level 3 Est. Patient 09:41:35 CDT Vishal Hui MD [facility] CPT-88024 Level 3 Est. Patient 12:00:41 CDT Neeraj Collins MD [facility] CPT-62779 Level 3 Est. Patient 09:16:24 CDT Vishal Hui MD [facility] CPT-90741 Level 4 Est. Patient 13:59:09 CDT Neeraj Collins MD [facility] CPT-74522 Level 3 Est. Patient 15:19:43 CDT Renzo Thornton [facility] CPT-82921 Level 3 Est. Patient 18:10:26 CDT Sahara Rodriguez MD [facility] CPT-38520 Level 3 Est. Patient 14:49:50 CDT Vishal Hui MD [facility] CPT-33462 Level 4 Est. Patient 18:41:46 CDT Neeraj Collins MD [facility] CPT-52286 Level 4 Est. Patient 09:18:38 [employer]ATION [employer] Vishal Hui MD [facility] CPT-36808 Level 3 Est. Patient 14:43:55 IM[employer]ATION [employer] Vishal Hui MD [facility] CPT-91782 Level 3 Est. Patient 15:26:33 [employer]ATION [employer] Sahara Rodriguez MD [facility] CPT-31716 Level 3 Est. Patient 10:32:14 [employer]ATION [employer] Vishal Hui MD [facility] CPT-33744 Level 3 Est. Patient 15:12:52 [employer]ATION [employer] Vishal Hui MD [facility] CPT-15495 Level 4 Est. Patient 09:19:27 CDT Vishal Hui MD [facility] CPT-35366 Level 3 Est. Patient 15:53:00 CDT Renzo Thornton [facility] CPT-28494 Level 3 Est. Patient 15:50:30 CDT Renzo Thornton [facility] CPT-65394 Level 3 Est. Patient 16:55:24 CDT Vishal Hui MD [facility] Procedures Code Procedure Name Date Entry Date Standard Description CPT-60139 UA Dip Auto (Floor Use Only) 11:36:47 CDT CPT-73480 Venipuncture Draw Fee 10:53:17 CDT CPT-35335 EKG Trac and Interp - XRAY USE ONLY 15:59:30 CDT 09/13 CPT-73472 Chest 1V Frontal - XRAY USE ONLY 15:59:30 CDT CPT-20918 Venipuncture Draw Fee 15:44:02 CDT CPT-58901 Venipuncture Draw Fee 08:41:12 CDT CPT-94361 Abd compl w upright - XRAY USE ONLY 10:27:59 CDT 06/28 CPT-27347 Smoking Cessation counseling 11:15:58 [employer] CPT-G0439 [facility] Annual Wellness Exam 09:30:58 [employer]ATION [employer] CPT-75807 TSH - LAB USE ONLY 08:50:26 [employer]ATION [employer] CPT-02302 CBC - LAB USE ONLY 08:50:26 [employer]ATION [employer] CPT-08658 Venipuncture Draw Fee 08:50:26 [employer]ATION [employer] CPT-62158 Abx/Therapy Injection 17:34:30 [employer]ATION [employer] CPT-21098 Nexplanon Removal with Reinsertion 14:09:32 CDT CPT-J7307 Nexplanon (Implant) 14:09:32 CDT CPT-OV Office Visit 14:09:32 CDT CPT-32539 UA w micro - LAB USE ONLY 16:21:13 CDT CPT-53651 Wet Mount - LAB USE ONLY 16:21:13 CDT CPT-62970 First Vx - Ix admin for Medicare patients 14:37:47 CDT CPT-05648 Fluzone Preservative Free Intramuscular Suspension 14:37 :47 CDT CPT-35131 Abx/Therapy Injection 13:54:22 CDT CPT-09514 Abx/Therapy Injection 08:47:09 CDT CPT-49208 Abx/Therapy Injection 13:29:56 CDT CPT-49475 Abx/Therapy Injection 08:36:16 CDT CPT-33422 [place] - LAB USE ONLY 17:44:58 CDT CPT-71239 UA w micro - LAB USE ONLY 17:44:58 CDT CPT-31299 CMP - LAB USE ONLY 17:44:58 CDT CPT-41156 Venipuncture Draw Fee 17:44:58 CDT CPT-31658 Cervical Min 4V - XRAY USE ONLY 09:01:40 CDT CPT-22326 Chest 2V Frontal and Lat - XRAY USE ONLY 11:06:31 CDT CPT-97475 EKG Trac and Interp - XRAY USE ONLY 11:31:43 CDT 08/26 CPT-J3420 Vitamin B12 1000mcg (Cyanocobalamin) 08:10:26 [employer] 04/12 CPT-02391 Abx/Therapy Injection 08:10:26 [employer]ATION [employer] CPT-G0438 Initial Annual Wellness Exam 19:01:01 [employer]ATION [employer] CPT-J3420 Vitamin B12 1000mcg (Cyanocobalamin) 16:57:46 CDT 08/14 CPT-09606 Recombivax HB Injection Suspension 5 MCG/0.5ML 08:37:50 [employer]ATION [employer] CPT-33449 Immunization Single Admin 08:37:50 [employer]ATION [employer] CPT-J3420 Vitamin B12 1000mcg (Cyanocobalamin) 08:32:16 [employer]ATION [employer] 03/11 CPT-99937 Abx/Therapy Injection 08:32:16 [employer]ITATION [employer] CPT-61232 Chest 2V Frontal and Lat 11:46:38 IMITATION [employer] CPT-53514 Venipuncture Draw Fee 09:12:45 [employer]ITATION [employer] CPT-J3420 Vitamin B12 1000mcg (Cyanocobalamin) 08:50:15 [employer]ATION [employer] 02/08 CPT-96564 Abx/Therapy Injection 08:50:15 [employer]ITATION [employer] CPT-Cryo Cryotherapy 10:19:35 [employer]ATION [employer] CPT-000 Give Appropriate Flu Vaccine 09:22:16 CDT CPT-J3420 Vitamin B12 1000mcg (Cyanocobalamin) 19:08:57 CDT 01/11 CPT-41578 Abx/Therapy Injection 19:08:57 CDT CPT-J3420 Vitamin B12 1000mcg (Cyanocobalamin) 08:19:08 CDT 12/11 CPT-64498 Abx/Therapy Injection 08:19:08 CDT CPT-J3420 Vitamin B12 1000mcg (Cyanocobalamin) 14:48:00 CDT 11/09 CPT-42468 Abx/Therapy Injection 14:47:59 CDT CPT-J3420 Vitamin B12 1000mcg (Cyanocobalamin) 08:34:04 CDT 10/09 CPT-95280 Abx/Therapy Injection 08:34:04 CDT CPT-J3420 Vitamin B12 1000mcg (Cyanocobalamin) 09:18:52 CDT 09/11 CPT-50329 Abx/Therapy Injection 09:18:52 CDT CPT-J3420 Vitamin B12 1000mcg (Cyanocobalamin) 08:35:44 CDT 09/04 CPT-57009 Abx/Therapy Injection 08:35:44 CDT CPT-19992 Immunization Single Admin 11:07:16 CDT CPT-25148 Hepatitis B adult IM 11:07:16 CDT CPT-J3420 Vitamin B12 1000mcg (Cyanocobalamin) 11:00:49 CDT 08/28 CPT-J1040 Depo Medrol 80 mg (Methyl Prednisolone Acetate) 11:00: 49 CDT CPT-31332 Abx/Therapy Injection 11:00:49 CDT CPT-J1040 Depo Medrol 80 mg (Methyl Prednisolone Acetate) 09:16: 23 CDT CPT-J3420 Vitamin B12 1000mcg (Cyanocobalamin) 08:27:05 CDT 08/20 CPT-45178 Abx/Therapy Injection 08:27:05 CDT CPT-21931 Recombivax HB Injection Suspension 5 MCG/0.5ML 10:00:41 CDT CPT-40341 Administration single or combination vaccine inc oral 10 :00:41 CDT CPT-91554 Sono transvag pelvis non OB uterus ovaries cervix 16:36: 57 CDT CPT-74235 LS spine comp w obliq 09:50:55 [employer]ATION [employer] CPT-15689 Abd compl w upright 09:50:55 [employer]ITATION [employer] CPT-J1100 Decadron 4mg (Dexamethasone) 15:51:24 [employer]ITATION [employer] CPT-J1030 Depo Medrol 40 mg (Methyl Prednisolone Acetate) 15:51: 24 [employer]ITATION [employer] CPT-63408 Abx/Therapy Injection 15:51:24 IMITATION [employer]IC CPT-J1100 Decadron 4mg (Dexamethasone) 15:26:33 IMITATION [employer] CPT-J1030 Depo Medrol 40 mg (Methyl Prednisolone Acetate) 15:26: 33 [employer]ITATION [employer] CPT-85350 Sono retroperitoneal complete kidneys and bladder 17:15: 30 CDT CPT-95814 Abd compl w upright 16:09:25 CDT CPT-J1100 Decadron 8mg (Dexamethasone) 17:07:57 CDT CPT-82975 Abx/Therapy Injection 17:07:57 CDT CPT-J1100 Decadron 8mg (Dexamethasone) 16:55:24 CDT CPT-83359 Chest 2V Frontal and Lat 16:32:44 CDT
--- OUTSIDE RECORDS SUMMARY | 2016-11-14 20:06 | XMS REPORT | Clinical Summary ---
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 Juliet Kimbrough OUTBOARD TECHNICIAN Dependence on other enabling machines and [...] Active Ahmet Carbajal MD Generalized anxiety disorder Surgery Technician well woman exam V72.31 Resolved Suzan Boo [...] for closed fracture ICD-823.01 Inactive Suzan Boo OUTBOARD TECHNICIAN Vaginal discharge ICD-623.5 Inactive Suzan Boo OUTBOARD TECHNICIAN DYSURIA ICD-788.1 Inactive Suzan Boo OUTBOARD TECHNICIAN Cellulitis and abscess of breast ICD-611.0 Inactive Ahmet Carbajal MD Nondisplaced transverse fracture of shaft of left fibula, subsequent encounter for closed fracture with routine healing Inactive Suzan Boo OUTBOARD TECHNICIAN Bronchitis, acute ICD-466.0 Inactive Ahmet Carbajal MD Surgery Technician well woman exam ICD-V72.31 Inactive Suzan Boo OUTBOARD TECHNICIAN Bronchitis, acute with mild bronchospasm ICD-466.0 Inactive Suzan Boo OUTBOARD TECHNICIAN Tracheitis ICD-464.10 Inactive Suzan Boo OUTBOARD TECHNICIAN Impetigo ICD-684 Inactive Suzan Boo OUTBOARD TECHNICIAN Furuncle of buttock ICD-680.5 Inactive Suzan Boo OUTBOARD TECHNICIAN Vaginal irritation ICD-623.9 Inactive Suzan Boo OUTBOARD TECHNICIAN Scalding pain on urination ICD-788.1 Inactive Suzan Boo OUTBOARD TECHNICIAN Abdominal pain, right upper quadrant ICD-789.01 Inactive Suzan Boo OUTBOARD TECHNICIAN Dark urine ICD-791.9 Inactive Suzan Boo OUTBOARD TECHNICIAN Preop exam ICD-V72.84 Inactive Suzan Boo APRN Medication List Medication Instructions Start Date Stop Date Generic Name NDC Status Provider Patient Instruction METFORMIN HCL 500 MG [id number] one a day for a week, then 2 a day METFORMIN HCL 87666123761 Active Malharvey Celayagledenilson HADDAD Active NYSTATIN 733156 UNIT/GM CREA apply three times a day to yeast rash NYSTATIN 24541667883 No Longer Active Maliheh Ziglari LEG BREAKER Active BACTRIM DS 800-160 MG TABS 1 twice a day SULFAMETHOXAZOLE-TRIMETHOPRIM 31837083257 No Longer Active Maliheh Ziglari LEG BREAKER Active MUPIROCIN 2 % OINT apply twice a day MUPIROCIN 28162435752 Active Suzan Boo APRN Active [id number]-[id number]-[id number] 50-325-40 MG TABS 1 to 2 four times a day as needed for headache [id number] 19015051357 Active Suzan Boo APRN Active METOCLOPRAMIDE HCL 10 MG TABS 1 two times as needed for nausea and headaches METOCLOPRAMIDE HCL 67108290972 Active Meena Ortiz MA Active AMITIZA 24 MCG ORAL CAPS one capsule twice daily LUBIPROSTONE 03424243611 Active Suzan Boo APRN Active MIRALAX ORAL POWD 17GMS DAILY IN WATER POLYETHYLENE GLYCOL 3350 61463650527 No Longer Active Suzan Boo APRN Active LACTULOSE 10 GM/15ML ORAL SOLN 30mL oral BID for IBS-C LACTULOSE 52914436233 No Longer Active Suzan Boo APRN Active BACTRIM DS 800-160 MG TAB Take one (1) tablet by mouth twice a day for 5 days TRIMETHOPRIM-SULFAMETHOXAZOLE 89489544102 No Longer Active Suzan Boo APRN Active MUPIROCIN 2 % OINT apply twice a day MUPIROCIN 61234710652 No Longer Active Suzan Boo APRN Active BACTRIM DS 800-160 MG TABS 1 twice a day SULFAMETHOXAZOLE-TRIMETHOPRIM 32509743574 No Longer Active Suzan Boo APRN Active DIFLUCAN 150 MG TABS 1 by mouth for yeast FLUCONAZOLE 78705063321 No Longer Active Suzan Boo APRN Active LINZESS 290 MCG ORAL CAPS 1 tab 30 min prior to first meal each day. LINACLOTIDE 76065305769 No Longer Active Sheila Calderon LPN Active AMITIZA 8 MCG ORAL CAPS 1 tab BID LUBIPROSTONE 39860041608 No Longer Active Lynda Xiao KIDNEY PULLER Active TESSALON PERLES 100 MG CAPS 1 three times a day as needed for cough BENZONATATE 97967528541 No Longer Active Suzan Boo APRN Active BACTRIM DS 800-160 MG TABS 1 twice a day SULFAMETHOXAZOLE-TRIMETHOPRIM 54769901177 No Longer Active Suzan Boo APRN Active DIFLUCAN 150 MG TABS 1 by mouth for yeast FLUCONAZOLE 73524778540 No Longer Active Suzan Boo APRN Active EQ NICOTINE 21 MG/24HR TRANS PT24 Apply daily to stop smoking NICOTINE 74338480004 No Longer Active uSzan Boo APRN Active PREDNISONE 10 MG TABS 2 daily for 5 days then 1 daily for 5 days PREDNISONE 88264278783 No Longer Active Suzan Boo APRN Active LEVAQUIN 500 MG TABS 1 daily for infection LEVOFLOXACIN 70022341386 No Longer Active Suzan Boo APRN Active TROPICAMIDE 0.5 % OPHTH SOLN 1 drop PRN eye spasms TROPICAMIDE 65563841915 No Longer Active Suzan Boo APRN Active PREDNISONE 20 MG TAB 1 tablet daily x 4 days PREDNISONE 10779365525 No Longer Active Suzan Boo APRN Active ACETAMINOPHEN-CODEINE 120-12 MG/5ML SOLN 5 ml by mouth every 4-6 hours if needed for cough ACETAMINOPHEN-CODEINE 29891578733 No Longer Active Suzan Boo APRN Active KEFLEX 500 MG CAP 1 po qid CEPHALEXIN 64622634406 No Longer Active Suzan Boo APRN Active FLOVENT HFA 110 MCG/ACT AERO 2 puffs inhaled b.i.d. FLUTICASONE PROPIONATE HFA 83613287198 Active Renzo Thornton DO Active RISPERDAL 4 MG ORAL TABS 1 tab at bedtime RISPERIDONE 22783303401 Active Samantha Rothman RMA Active ZOFRAN 4 MG TABS 1 po q6hr PRN Nausea ONDANSETRON HCL No Longer Active Suzan Boo APRN Active FLUTICASONE PROPIONATE 50 MCG/ACT SUSP 2 sprays each nostril daily before bed. FLUTICASONE PROPIONATE 48076669189 No Longer Active Suzan Boo APRN Active ASPIRIN 325 MG ORAL TABS 1 tab q.d ASPIRIN 16104074342 No Longer Active Suzan Boo APRN Active HALOPERIDOL 10 MG ORAL TABS 1 tab q.d HALOPERIDOL 13807375634 No Longer Active Suzan Boo APRN Active GUAIFENESIN-CODEINE 100-10 MG/5ML SYRP 5ml every 4 to 6 hours as needed for cough GUAIFENESIN-CODEINE 56039370195 No Longer Active Suzan Boo APRN Active ZITHROMAX Z-EARNEST 250 MG TABS 2 today and then 1 daily for 4 days AZITHROMYCIN 25057187694 No Longer Active Suzan Boo APRN Active CLONAZEPAM 1 MG ORAL TABS 1 twice a day and an additional 1 tablet every other day as needed for pseudoseizures or anxiety CLONAZEPAM 23608016040 Active Suzan Boo APRN Active HYDROCODONE-ACETAMINOPHEN 5-325 MG ORAL TABS 1 tab two times a day HYDROCODONE-ACETAMINOPHEN 86125250803 No Longer Active Ahmet Carbajal MD Active LAMICTAL 100 MG ORAL TABS 1 tab 2 times qd. LAMOTRIGINE 07959431090 Active Ahmet Carbajal MD Active PREDNISONE 20 MG TABS 2 daily for 5 days then 1 daily for 5 days PREDNISONE 67744527136 No Longer Active Ahmet Carbajal MD Active FLUTICASONE PROPIONATE 50 MCG/ACT SUSP 1 to 2 sprays each nostril daily for allergies FLUTICASONE PROPIONATE 07857655462 Active Tila Valenzuela Active BENADRYL 25 MG CAP 4 po at bedtime for insomnia DIPHENHYDRAMINE HCL 62754161958 No Longer Active Ahmet Carbajal MD Active ADVAIR DISKUS 250-50 MCG/DOSE INH AEPB 1 puff twice a day for asthma FLUTICASONE-SALMETEROL 77381900985 No Longer Active Ahmet Carbajal MD Active KLONOPIN 1 MG ORAL TABS 1 tab po TID CLONAZEPAM 13615643340 No Longer Active Ahmet Carbajal MD Active ABILIFY MAINTENA 400 MG IM SUSR 400mg injection every 26 days ARIPIPRAZOLE 18551540392 No Longer Active Ahmet Carbajal MD Active TRAMADOL HCL 50 MG TABS 1/2-1 tab TID PRN TRAMADOL HCL 32162433913 No Longer Active Ahmet Carbajal MD Active BACTRIM DS 800-160 MG TABS 1 twice a day SULFAMETHOXAZOLE- TRIMETHOPRIM 41533455632 No Longer Active Ahmet Carbajal MD Active PROAIR HFA 108 (90 BASE) MCG/ACT AERS 2 puffs four times a day as needed 2015 ALBUTEROL SULFATE 95354185130 Active Honey Hinton APRN Active MONISTAT 7 COMBO PACK WOODROW 100 & 2 MG-% (9GM) VAG KIT 1 applicatorful per vagina q pm x 7 MICONAZOLE NITRATE 36334405197 No Longer Active Ahmet Carbajal MD Active FLAGYL 500 MG TAB 1 tablet by mouth bid METRONIDAZOLE 02937419598 No Longer Active Ahmet Carbajal MD Active OXYCODONE HCL ER 10 MG ORAL T12A 1/2 tab by mouth every 4 hours prn OXYCODONE HCL 17633943072 No Longer Active Ahmet Carbajal MD Active METHYLPREDNISOLONE 4 MG ORAL TABS po daily METHYLPREDNISOLONE 08177986439 No Longer Active Ahmet Carbajal MD Active LEVOFLOXACIN 500 MG ORAL TABS po daily LEVOFLOXACIN 25758970521 No Longer Active Ahmet Carbajal MD Active VIIBRYD 10 MG ORAL TABS Take 1 tablet once a day VILAZODONE HCL 40548312383 No Longer Active Ahmet Carbajal MD Active TOPAMAX 50 MG ORAL TABS 1 tab twice daily TOPIRAMATE 22272954347 No Longer Active Ahmet Carbajal MD Active DICLOFENAC SODIUM 50 MG TBEC 1 tablet by mouth four times daily PRN Pain 2015 DICLOFENAC SODIUM 10714246494 No Longer Active Ahmet Carbajal MD Active ADZENYS XR-ODT 6.3 MG ORAL TBED 1 tab po daily for ADHD AMPHETAMINE 77296555134 No Longer Active Ahmet Carbajal MD Active CHANTIX 1 MG TABS 1 twice a day to help quit smoking VARENICLINE TARTRATE 02172974114 No Longer Active Dipika Burgos MD Active CHANTIX STARTING MONTH EARNEST 0.5 MG X 11 & 1 MG X 42 TABS take as directed 2015 VARENICLINE TARTRATE 10529524015 No Longer Active Dipika Burgos MD Active TESSALON PERLES 100 MG CAP 1 to 2 tablets by mouth 3 times daily as needed for cough BENZONATATE 82831766081 No Longer Active Luigi Martínez OUTBOARD TECHNICIAN Active IMITREX 50 MG ORAL TABS 0.5 po x 1 PRN Headache. May repeat dose x 1 in 2 hours if needed SUMATRIPTAN SUCCINATE 99972703869 Active TAMARA Casey Active HYDROCODONE-ACETAMINOPHEN 5-325 MG TABS 1 to 2 four times a day as needed for pain use until can be seen by specialist HYDROCODONE- ACETAMINOPHEN 61379316521 No Longer Active Vishal Hui MD Active PROAIR HFA 108 (90 BASE) MCG/ACT AERS 2 puffs four times a day as needed 2015 ALBUTEROL SULFATE 51048812618 No Longer Active Vishal Hui MD Active PREDNISONE 20 MG TABS 2 daily for 5 days then 1 daily for 5 days PREDNISONE 69998744651 No Longer Active Vishal Hui MD Active ZITHROMAX Z-EARNEST 250 MG TABS 2 today and then 1 daily for 4 days AZITHROMYCIN 79512676479 No Longer Active Vishal Hui MD Active DICLOFENAC POTASSIUM TABS Take 1 tablet twice a day (pt. is not sure of the dose.) DICLOFENAC POTASSIUM TABS 88705795589 No Longer Active Vishal Hui MD Active VERAPAMIL HCL ER 120 MG ORAL CR-TABS Take 1 tablet by mouth twice a day. VERAPAMIL HCL 42275473155 Active Vishal Hui MD Active FLAGYL 500 MG TAB 1 tablet by mouth bid METRONIDAZOLE 12297038807 No Longer Active Vishal Hui MD Active VALIUM 5 MG TAB Take 1-2 tablets daily DIAZEPAM 02345125928 No Longer Active Fabiola Johnson APRN Active METOPROLOL TARTRATE 25 MG ORAL TABS 1/2 tablet twice daily for heart rate and blood pressure METOPROLOL TARTRATE 77874922979 No Longer Active Fabiola Johnson APRN Active MIRALAX PACK 1 po qd PRN Constipation POLYETHYLENE GLYCOL 3350 70496464600 No Longer Active Ahmet Carbajal MD Active MINIPRESS 2 MG CAPS 4 cap po at night PRAZOSIN HCL 66528570220 No Longer Active Ahmet Carbajal MD Active PIROXICAM 20 MG CAPS 1 cap po qd PRN Pain PIROXICAM 39538161655 No Longer Active Ahmet Carbajal MD Active TRAMADOL HCL 50 MG TABS 1-2 po TID PRN Pain TRAMADOL HCL 37023285593 No Longer Active Ahmet Carbajal MD Active METOPROLOL TARTRATE 50 MG TAB 1 po bid METOPROLOL TARTRATE 42013510549 No Longer Active Ahmet Carbajal MD Active ABILIFY 15 MG ORAL TABS 1 tab daily ARIPIPRAZOLE 23429590670 No Longer Active Ahmet Carbajal MD Active PROZAC 20 MG ORAL CAPS 1 tab daily FLUOXETINE HCL 85192426865 No Longer Active Ahmet Carbajal MD Active AMBIEN 5 MG ORAL TABS 1 tab at bedtime ZOLPIDEM TARTRATE 30657009950 No Longer Active Ahmet Carbajal MD Active PREDNISONE 20 MG TAB 2 tabs daily for 4 days, 1 tab daily for 4 days, 1/2 tab daily for 4 days PREDNISONE 59184104124 No Longer Active Ahmet Carbajal MD Active KEFLEX 500 MG CAP 1 po TID x 10 days CEPHALEXIN 10852126192 No Longer Active Vishal Hui MD Active SAPHRIS 5 MG SUBL 1 po bid ASENAPINE MALEATE 78953416104 No Longer Active Luigi Martínez APRN Active LATUDA 80 MG TABS Take one by mouth daily LURASIDONE HCL 13362711027 No Longer Active Jillina Fralebron NORIEGA Active AMLODIPINE BESYLATE 5 MG TABS 1 tablet by mouth daily AMLODIPINE BESYLATE 33576854307 No Longer Active Jillina Fralebron NORIEGA Active AMITRIPTYLINE HCL 100 MG TAB one at hs AMITRIPTYLINE HCL 50535621532 No Longer Active Vishal Hui MD Active TRAZODONE HCL 100 MG TAB take 1 at bedtime TRAZODONE HCL 45718953378 No Longer Active Vishal Hui MD Active VYVANSE 40 MG CAPS 1 daily, LISDEXAMFETAMINE DIMESYLATE 42939421252 No Longer Active Vishal Hui MD Active IBUPROFEN 600 MG TAB 1 po TID PRN IBUPROFEN 97124814580 No Longer Active Vishal Hui MD Active PROZAC 20 MG CAP Take one by mouth daily FLUOXETINE HCL 38210114856 No Longer Active Vishal Hui MD Active BACTRIM DS 800-160 MG TABS 1 pill by mouth twice daily SULFAMETHOXAZOLE-TRIMETHOPRIM 07741318136 No Longer Active Sahara Rodriguez MD PhD Active DIFLUCAN 150 MG TAB 1 tablet by mouth daily FLUCONAZOLE 81343458715 No Longer Active Vishal Hui MD Active TIZANIDINE HCL 4 MG TABS 1 po q6hr PRN Muscle Spasm/Back Pain TIZANIDINE HCL 12583056211 Active TAMARA Casey Active CLINDAMYCIN HCL 150 MG CAPS 1 four times a day CLINDAMYCIN HCL 53809358102 No Longer Active Neeraj Collins MD Active KEFLEX 500 MG ORAL CAPS 1 cap QID by mouth CEPHALEXIN 46541341947 No Longer Active Neeraj Collins MD Active DIFLUCAN 150 MG TABS 1 pill every other day x 2 doses FLUCONAZOLE 95482802024 No Longer Active Sahara Rodriguez MD PhD Active MELATONIN 3 MG CAPS 2 po q hs MELATONIN 05103949685 No Longer Active Sahara Rodriguez MD PhD Active MULTIVITAMINS CAPS Take one by mouth daily MULTIPLE VITAMIN 58686567650 No Longer Active Sahara Rodriguez MD PhD Active BACTRIM DS 800-160 MG TAB 1 tab by mouth twice daily TRIMETHOPRIM-SULFAMETHOXAZOLE 19212658390 No Longer Active Sahara Rodriguez MD PhD Active [facility] PROBIOTIC ORAL CHEW 2 daily po PROBIOTIC PRODUCT 79755628483 No Longer Active Sahara Rodriguez MD PhD Active BACTRIM DS 800-160 MG TABS 1 po BID x 7 days SULFAMETHOXAZOLE-TRIMETHOPRIM 37251961951 No Longer Active Vishal Hui MD Active CHANTIX STARTING MONTH EARNEST 0.5 MG X 11 & 1 MG X 42 TABS 0.5mg daily for 3 days , then 0.5mg BID for 4 days, then 1mg BID VARENICLINE TARTRATE 33810644603 No Longer Active TAMARA Gray Active VERAPAMIL HCL CR 120 MG TAB CR 1 po bid VERAPAMIL HCL 91797630717 No Longer Active Vishal Hui MD Active METOPROLOL SUCCINATE 50 MG TB24 1 tablet by mouth daily METOPROLOL SUCCINATE 67315639407 No Longer Active Vishal Hui MD Active SAPHRIS 10 MG SUBL 1 tab po bid ASENAPINE MALEATE 65340835416 No Longer Active Vishal Hui MD Active LISINOPRIL 20 MG TABS 1 tab po qd LISINOPRIL 85421635331 No Longer Active Vishal Hui MD Active LATUDA 20 MG TABS Take one by mouth daily LURASIDONE HCL 86039931618 No Longer Active Vishal Hui MD Active TRAZODONE HCL 50 MG TABS 1/2 tab po qd prn for anxiety TRAZODONE HCL 17919426344 No Longer Active Vishal Hui MD Active OMEPRAZOLE 20 MG TBEC 1 po q a.m. 30min prior to first food intake OMEPRAZOLE 25042158515 Active TAMARA Casey Active RANITIDINE HCL 150 MG CAPS 1 twice a day RANITIDINE HCL 18207896217 Active Lynda Xiao LPN Active LINZESS 290 MCG CAPS Take one by mouth daily LINACLOTIDE 21559022140 No Longer Active Vishal Hui MD Active SAPHRIS 5 MG SUBL 1 tab po qd ASENAPINE MALEATE 99091567470 No Longer Active Vishal Hui MD Active ZALEPLON 10 MG CAPS 1 cap po every other night ZALEPLON 76717428540 No Longer Active Vishal Hui MD Active LYRICA 50 MG CAPS 1 tab po TID PREGABALIN 48910522300 No Longer Active Vishal Hui MD Active LORATADINE 10 MG TABS 1 tab po qd LORATADINE 83852866006 No Longer Active Vishal Hui MD Active VERAPAMIL HCL ER 180 MG CR-TABS 1 tab po bid VERAPAMIL HCL 69722785833 No Longer Active Vishal Hui MD Active MIRALAX POWD 1 capfull once daily POLYETHYLENE GLYCOL 3350 14867343207 No Longer Active Vishal Hui MD Active PREDNISONE 20 MG TABS 1 tab po qd PREDNISONE 69523875007 No Longer Active Renzo Thornton DO Active LEVOFLOXACIN 500 MG TABS 1 tab po qd LEVOFLOXACIN 46025324664 No Longer Active Renzo Thornton DO Active BUSPIRONE HCL 15 MG TABS 1 tab po TID BUSPIRONE HCL 64365901595 No Longer Active Renzo Thornton DO Active BENZTROPINE MESYLATE 1 MG TABS 1 tab po qd BENZTROPINE MESYLATE 21456527176 No Longer Active Renzo Thornton DO Active ATENOLOL 25 MG TABS 1 tab po qd ATENOLOL 26268350356 No Longer Active Renzo Thornton DO Active ESCITALOPRAM OXALATE 20 MG TABS 1 tab po qd ESCITALOPRAM OXALATE 97487326026 No Longer Active Renzo Thornton DO Active ADVAIR DISKUS 250-50 MCG/DOSE AEPB 1 puff BID FLUTICASONE-SALMETEROL 30684574371 No Longer Active Renzo Thornton DO Active PREDNISONE 20 MG TAB 2 tabs daily for 3 days, 1 tab daily for 3 days, 1/2 tab daily for 2 days PREDNISONE 74921085766 No Longer Active Vishal Hui MD Active CEFDINIR 300 MG CAPS by mouth twice a day CEFDINIR 00286517384 No Longer Active Vishal Hui MD Active LANSOPRAZOLE 30 MG CPDR 1 cap po qd LANSOPRAZOLE 87214998870 No Longer Active Vishal Hui MD Active BACLOFEN 20 MG TABS 1 tab po tid BACLOFEN 01490454820 No Longer Active Vishal Hui MD Active ADVAIR DISKUS 250-50 MCG/DOSE AEPB 1 puff BID ADVAIR DISKUS 250-50 MCG/DOSE AEPB FLUTICASONE-SALMETEROL Inactive ESCITALOPRAM OXALATE 20 MG TABS 1 tab po qd ESCITALOPRAM OXALATE 20 MG TABS 416003 ESCITALOPRAM OXALATE Inactive ATENOLOL 25 MG TABS 1 tab po qd ATENOLOL 25 MG TABS 249860 ATENOLOL Inactive BENZTROPINE MESYLATE 1 MG TABS 1 tab po qd BENZTROPINE MESYLATE 1 MG TABS 783193 BENZTROPINE MESYLATE Inactive BUSPIRONE HCL 15 MG TABS 1 tab po TID BUSPIRONE HCL 15 MG TABS 219184 BUSPIRONE HCL Inactive LEVOFLOXACIN 500 MG TABS 1 tab po qd LEVOFLOXACIN 500 MG TABS 361711 LEVOFLOXACIN Inactive PREDNISONE 20 MG TABS 1 tab po qd PREDNISONE 20 MG TABS 493169 PREDNISONE Inactive MIRALAX POWD 1 capfull once daily MIRALAX POWD 647375 POLYETHYLENE GLYCOL 3350 Inactive VERAPAMIL HCL ER 180 MG CR-TABS 1 tab po bid VERAPAMIL HCL ER 180 MG CR-TABS VERAPAMIL HCL Inactive LORATADINE 10 MG TABS 1 tab po qd LORATADINE 10 MG TABS 423893 LORATADINE Inactive LYRICA 50 MG CAPS 1 tab po TID LYRICA 50 MG CAPS PREGABALIN Inactive ZALEPLON 10 MG CAPS 1 cap po every other night ZALEPLON 10 MG CAPS 235109 ZALEPLON Inactive SAPHRIS 5 MG SUBL 1 tab po qd SAPHRIS 5 MG SUBL ASENAPINE MALEATE Inactive TRAZODONE HCL 50 MG TABS 1/2 tab po qd prn for anxiety TRAZODONE HCL 50 MG TABS 303922 TRAZODONE HCL Inactive LATUDA 20 MG TABS Take one by mouth daily LATUDA 20 MG TABS LURASIDONE HCL Inactive LISINOPRIL 20 MG TABS 1 tab po qd LISINOPRIL 20 MG TABS 538944 LISINOPRIL Inactive SAPHRIS 10 MG SUBL 1 [...] twice daily BACTRIM DS 800-160 MG TAB 870727 TRIMETHOPRIM-SULFAMETHOXAZOLE Inactive MULTIVITAMINS CAPS Take one by mouth daily MULTIVITAMINS CAPS MULTIPLE VITAMIN Inactive MELATONIN 3 MG CAPS 2 po q hs MELATONIN 3 MG CAPS 948925 MELATONIN Inactive KEFLEX 500 MG ORAL CAPS 1 cap QID by mouth KEFLEX 500 MG ORAL CAPS 704648 CEPHALEXIN Inactive CLINDAMYCIN HCL 150 MG CAPS 1 four times a day CLINDAMYCIN HCL 150 MG CAPS 749913 CLINDAMYCIN HCL Inactive DIFLUCAN 150 MG TAB 1 tablet by mouth daily DIFLUCAN 150 MG TAB 199470 FLUCONAZOLE Inactive PROZAC 20 MG CAP Take one by mouth daily PROZAC 20 MG CAP 698915 FLUOXETINE HCL Inactive IBUPROFEN 600 MG TAB 1 po TID PRN IBUPROFEN 600 MG TAB 520859 IBUPROFEN Inactive VYVANSE 40 MG CAPS 1 daily, VYVANSE 40 MG CAPS LISDEXAMFETAMINE DIMESYLATE Inactive TRAZODONE HCL 100 MG TAB take 1 at bedtime TRAZODONE HCL 100 MG TAB 924009 TRAZODONE HCL Inactive AMITRIPTYLINE HCL 100 MG TAB one at hs AMITRIPTYLINE HCL 100 MG TAB 297328 AMITRIPTYLINE HCL Inactive AMLODIPINE BESYLATE 5 MG TABS 1 tablet by mouth daily AMLODIPINE BESYLATE 5 MG TABS 831420 AMLODIPINE BESYLATE Inactive LATUDA 80 MG TABS Take one by mouth daily LATUDA 80 MG TABS LURASIDONE HCL Inactive SAPHRIS 5 MG SUBL 1 po bid SAPHRIS 5 MG SUBL ASENAPINE MALEATE Inactive PREDNISONE 20 MG TAB 2 tabs daily for 4 days, 1 tab daily for 4 days, 1/2 tab daily for 4 days PREDNISONE 20 MG TAB 698364 PREDNISONE Inactive AMBIEN 5 MG ORAL TABS 1 tab at bedtime AMBIEN 5 MG ORAL TABS 848536 ZOLPIDEM TARTRATE Inactive PROZAC 20 MG ORAL CAPS 1 tab daily PROZAC 20 MG ORAL CAPS 089921 FLUOXETINE HCL Inactive ABILIFY 15 MG ORAL TABS 1 tab daily ABILIFY 15 MG ORAL TABS 231789 ARIPIPRAZOLE Inactive METOPROLOL TARTRATE 50 MG TAB 1 po bid METOPROLOL TARTRATE 50 MG TAB 968436 METOPROLOL TARTRATE Inactive TRAMADOL HCL 50 MG TABS 1-2 po TID PRN Pain TRAMADOL HCL 50 MG TABS 267796 TRAMADOL HCL Inactive PIROXICAM 20 MG CAPS 1 cap po qd PRN Pain PIROXICAM 20 MG CAPS 257031 PIROXICAM Inactive MINIPRESS 2 MG CAPS 4 cap po at night MINIPRESS 2 MG CAPS 037357 PRAZOSIN HCL Inactive MIRALAX PACK 1 po qd PRN Constipation MIRALAX PACK 050386 POLYETHYLENE GLYCOL 3350 Inactive METOPROLOL TARTRATE 25 MG ORAL TABS 1/2 tablet twice daily for heart rate and blood pressure METOPROLOL TARTRATE 25 MG ORAL TABS 407037 METOPROLOL TARTRATE Inactive VALIUM 5 MG TAB Take 1-2 tablets daily VALIUM 5 MG TAB 743504 DIAZEPAM Inactive FLAGYL 500 MG TAB 1 tablet by mouth bid FLAGYL 500 MG TAB 822644 METRONIDAZOLE Inactive DICLOFENAC POTASSIUM TABS Take 1 tablet twice a day (pt. is not sure of the dose.) DICLOFENAC POTASSIUM TABS DICLOFENAC POTASSIUM TABS Inactive ZITHROMAX Z-EARNEST 250 MG TABS 2 today and then 1 daily for 4 days ZITHROMAX Z-EARNEST 250 MG TABS 3523290 AZITHROMYCIN Inactive PREDNISONE 20 MG TABS 2 daily for 5 days then 1 daily for 5 days PREDNISONE 20 MG TABS 711292 PREDNISONE Inactive PROAIR HFA 108 (90 BASE) MCG/ACT AERS 2 puffs four times a day as needed 2015 PROAIR HFA 108 (90 BASE) MCG/ACT AERS ALBUTEROL SULFATE Inactive HYDROCODONE-ACETAMINOPHEN 5-325 MG TABS 1 to 2 four times a day as needed for pain use until can be seen by specialist HYDROCODONE- ACETAMINOPHEN 5-325 MG TABS 951883 HYDROCODONE-ACETAMINOPHEN Inactive TESSALON PERLES 100 MG CAP 1 to 2 tablets by mouth 3 times daily as needed for cough TESSALON PERLES 100 MG CAP 806803 BENZONATATE Inactive CHANTIX STARTING MONTH EARNEST 0.5 [...] Pain 2015 DICLOFENAC SODIUM 50 MG TBEC 051096 DICLOFENAC SODIUM Inactive TOPAMAX 50 MG ORAL TABS 1 tab twice daily TOPAMAX 50 MG ORAL TABS 285541 TOPIRAMATE Inactive VIIBRYD 10 MG ORAL TABS Take 1 tablet once a day VIIBRYD 10 MG ORAL TABS VILAZODONE HCL Inactive LEVOFLOXACIN 500 MG ORAL TABS po daily LEVOFLOXACIN 500 MG ORAL TABS 790668 LEVOFLOXACIN Inactive METHYLPREDNISOLONE 4 MG ORAL TABS po daily METHYLPREDNISOLONE 4 MG ORAL TABS 191802 METHYLPREDNISOLONE Inactive OXYCODONE HCL ER 10 MG ORAL T12A 1/2 tab by mouth every 4 hours prn OXYCODONE HCL ER 10 MG ORAL T12A OXYCODONE HCL Inactive FLAGYL 500 MG TAB 1 tablet by mouth bid FLAGYL 500 MG TAB 449883 METRONIDAZOLE Inactive MONISTAT 7 COMBO PACK WOODROW 100 & 2 MG-% (9GM) VAG KIT 1 applicatorful per vagina q pm x 7 MONISTAT 7 COMBO PACK WOODROW 100 & 2 MG-% (9GM) VAG KIT MICONAZOLE NITRATE Inactive BACTRIM DS 800-160 MG TABS 1 twice a day BACTRIM DS 800-160 MG TABS 113261 SULFAMETHOXAZOLE-TRIMETHOPRIM Inactive TRAMADOL HCL 50 MG TABS 1/2-1 tab TID PRN TRAMADOL HCL 50 MG TABS 489453 TRAMADOL HCL Inactive ABILIFY MAINTENA 400 MG IM SUSR 400mg injection every 26 days ABILIFY MAINTENA 400 MG IM SUSR ARIPIPRAZOLE Inactive KLONOPIN 1 MG ORAL TABS 1 tab po TID KLONOPIN 1 MG ORAL TABS 728980 CLONAZEPAM Inactive ADVAIR DISKUS 250-50 MCG/DOSE INH AEPB 1 puff twice a day for asthma ADVAIR DISKUS 250-50 MCG/DOSE INH AEPB FLUTICASONE- SALMETEROL Inactive BENADRYL 25 MG CAP 4 po at bedtime for insomnia BENADRYL 25 MG CAP DIPHENHYDRAMINE HCL Inactive PREDNISONE 20 MG TABS 2 daily for 5 days then 1 daily for 5 days PREDNISONE 20 MG TABS [id number] PREDNISONE Inactive HYDROCODONE-ACETAMINOPHEN 5-325 MG ORAL TABS 1 tab two times a day HYDROCODONE-ACETAMINOPHEN 5-325 MG ORAL TABS [id number] HYDROCODONE-ACETAMINOPHEN Inactive ZITHROMAX Z-EARNEST 250 MG TABS 2 today and then 1 daily for 4 days ZITHROMAX Z-EARNEST 250 MG TABS [id number] AZITHROMYCIN Inactive GUAIFENESIN-CODEINE 100-10 MG/5ML SYRP 5ml every 4 to 6 hours as needed for cough GUAIFENESIN-CODEINE 100-10 MG/5ML SYRP [id number] GUAIFENESIN-CODEINE Inactive HALOPERIDOL 10 MG ORAL TABS 1 tab q.d HALOPERIDOL 10 MG ORAL TABS [id number] HALOPERIDOL Inactive ASPIRIN 325 MG ORAL TABS 1 tab q.d ASPIRIN 325 MG ORAL TABS 959173 ASPIRIN Inactive FLUTICASONE PROPIONATE 50 MCG/ACT SUSP 2 sprays each nostril daily before bed. FLUTICASONE PROPIONATE 50 MCG/ACT SUSP 2014280 FLUTICASONE PROPIONATE Inactive ZOFRAN 4 MG TABS 1 po q6hr PRN Nausea ZOFRAN 4 MG TABS 860058 ONDANSETRON HCL Inactive KEFLEX 500 MG CAP 1 po qid KEFLEX 500 MG CAP 348120 CEPHALEXIN Inactive ACETAMINOPHEN-CODEINE 120-12 MG/5ML SOLN 5 ml by mouth every 4-6 hours if needed for cough ACETAMINOPHEN-CODEINE 120-12 MG/5ML SOLN 334836 ACETAMINOPHEN-CODEINE Inactive PREDNISONE 20 MG TAB 1 tablet daily x 4 days PREDNISONE 20 MG TAB 890180 PREDNISONE Inactive TROPICAMIDE 0.5 % OPHTH SOLN 1 drop PRN eye spasms TROPICAMIDE 0.5 % OPHTH SOLN 409334 TROPICAMIDE Inactive LEVAQUIN 500 MG TABS 1 daily for infection LEVAQUIN 500 MG TABS 364362 LEVOFLOXACIN Inactive PREDNISONE 10 MG TABS 2 daily for 5 days then 1 daily for 5 days PREDNISONE 10 MG TABS 079587 PREDNISONE Inactive EQ NICOTINE 21 MG/24HR TRANS [...] mouth for yeast DIFLUCAN 150 MG TABS 762684 FLUCONAZOLE Inactive BACTRIM DS 800-160 MG TABS 1 twice a day BACTRIM DS 800-160 MG TABS 19820521 SULFAMETHOXAZOLE-TRIMETHOPRIM Inactive MUPIROCIN 2 % OINT apply twice a day MUPIROCIN 2 % OINT 878596 MUPIROCIN Inactive BACTRIM DS 800-160 MG TAB Take one (1) tablet by mouth twice a day for 5 days BACTRIM DS 800-160 MG TAB 19820521 TRIMETHOPRIM- SULFAMETHOXAZOLE Inactive LACTULOSE 10 GM/15ML ORAL SOLN 30mL oral BID for IBS-C LACTULOSE 10 GM/15ML ORAL SOLN 702749 LACTULOSE Inactive MIRALAX ORAL POWD 17GMS DAILY IN WATER MIRALAX ORAL POWD 938889 POLYETHYLENE GLYCOL 3350 Inactive BACTRIM DS 800-160 MG TABS 1 twice a day BACTRIM DS 800-160 MG TABS 19820521 SULFAMETHOXAZOLE-TRIMETHOPRIM Inactive NYSTATIN 470451 UNIT/GM CREA apply three times a day to yeast rash NYSTATIN 568380 UNIT/GM CREA 595727 NYSTATIN Inactive CEFDINIR 300 MG CAPS by mouth twice a day CEFDINIR 300 MG CAPS 476205 CEFDINIR Inactive PREDNISONE 20 MG TAB 2 tabs daily for 3 days, 1 tab daily for 3 days, 1/2 tab daily for 2 days PREDNISONE 20 MG TAB 187568 PREDNISONE Inactive BACTRIM DS 800-160 MG TABS [...] x 10 days KEFLEX 500 MG CAP 391108 CEPHALEXIN Inactive Advance Directives Directive Description Start [...] % 11.0-15.0 platelet count 443 THOUSAND/UL 10*3/mm3 114-163 9164/03/01 mean platelet volume 8.2 fL 7.5-12.5 leukocyte [...] % 11.0-15.0 platelet count 349 THOUSAND/UL 10*3/mm3 791-143 2445/04/12 mean platelet volume 8.4 fL 7.5-12.5 Lab Report: CBC W/DIFF, Comp. Metabolic Panel, HGBA1C, Magnesium - Chemistry sodium, serum 141 mmol/L 022-189 1279/07/24 carbon dioxide, venous blood 27.8 mmol/L 21.0-32.0 [...] 369 10^3/MM^3 10*3/mm3 142-424 Lab Report: Chlamydia/GC APTIMA/94583 - Lab chlamydia DNA probe NOT DETECTED NOT DETECTED Lab Report: Chlamydia/GC APTIMA/06007 - Microbiology Neisseria gonorrhoeae DNA probe NOT DETECTED NOT DETECTED Lab Report: Chlamydia/GC APTIMA/10283, Urinalysis, Complete, with Reflex ... - Lab chlamydia DNA probe NOT DETECTED NOT DETECTED Lab Report: Chlamydia/GC APTIMA/38338, Urinalysis, Complete, with Reflex ... - Microbiology Neisseria gonorrhoeae DNA probe NOT DETECTED NOT DETECTED Lab Report: Chlamydia/GC APTIMA/86225, Urinalysis, Complete, with Reflex ... - Urinalysis microalbumin/total urine volume 2 mg/L Units converted. See lab report for original value. microalbumin/creatinine ratio, urine 9 MCG/MG CREAT mg/L <30 Lab Report: Comp. Metabolic Panel - Chemistry sodium, serum 140 mmol/L 954-438 9824/06/28 carbon dioxide, venous blood 23.8 mmol/L 21.0-32.0 [...] negative Encounters Code Encounter Date Provider Facility CPT-02976 Level 5 Est. Patient 12:01:37 CDT Maude Miranda [facility] CPT-69115 Level 3 Est. Patient 11:36:47 CDT Szuan [facility] CPT-76874 Level 3 Est. Patient 10:53:17 CDT Suzan [facility] CPT-22046 Level 3 Est. Patient 11:08:35 CDT Suzan [facility] CPT-82969 Level 3 Est. Patient 15:55:20 CDT Suzan [facility] CPT-11828 Level 4 Est. Patient 10:49:34 CDT Suzan [facility] CPT-23622 Level 3 Est. Patient 10:00:25 CDT Suzan Rajeev [facility] CPT-14545 Level 3 Est. Patient 10:29:30 CDT Suzan Boo [facility] CPT-78141 Level 3 Est. Patient 11:04:38 CDT Renzo Barajas Norberto [facility] CPT-46994 Level 3 Est. Patient 11:15:58 LICENSED PESTICIDE APPLICATOR Renzo Jenn Thornton [facility] CPT-22980 Level 3 Est. Patient 15:28:23 LICENSED PESTICIDE APPLICATOR Suzan Boo [facility] CPT-68773 Level 4 Est. Patient 10:20:54 LICENSED PESTICIDE APPLICATOR Suzan Boo [facility] CPT-54082 Level 3 Est. Patient 11:47:37 LICENSED PESTICIDE APPLICATOR Ahmet Carbajal MD [facility] CPT-89878 Level 3 Est. Patient 10:40:11 LICENSED PESTICIDE APPLICATOR Ahmet Carbajal MD [facility] CPT-62869 Level 3 Est. Patient 15:07:06 LICENSED PESTICIDE APPLICATOR Neeraj Collins MD [facility] CPT-20012 Level 4 Est. Patient 14:45:00 LICENSED PESTICIDE APPLICATOR Ahmet Carbajal MD [facility] CPT-33462 Level 3 Est. Patient 13:59:59 CDT Luigi Martínez [facility] CPT-34439 Level 3 Est. Patient 18:18:53 CDT Neeraj Collins MD [facility] CPT-89062 Level 3 Est. Patient 15:50:44 CDT Vishal Hui MD [facility] CPT-57975 Level 3 Est. Patient 11:36:17 CDT Ahmet Carbajal MD [facility] CPT-10359 Level 3 Est. Patient 13:29:16 CDT Vishal Hui MD [facility] CPT-30912 Level 3 Est. Patient 14:27:52 CDT Neeraj Collins MD [facility] CPT-04552 Level 3 Est. Patient 08:56:03 CDT Luigi Martínez [facility] CPT-44874 Level 4 Est. Patient 12:11:48 CDT Fabiolaniall Johnson [facility] CPT-19015 Level 3 New Patient 16:53:37 CDT Albert Caldera MD [facility] CPT-13340 Level 3 Est. Patient 11:25:49 CDT Renzo Thornton DO [facility] CPT-58182 Level 3 Est. Patient 15:22:01 CDT Ahmet Carbajal MD [facility] CPT-58336 Level 4 Est. Patient 09:00:51 LICENSED PESTICIDE APPLICATOR Vishal Hui MD [facility] CPT-22512 Level 3 Est. Patient 11:37:33 LICENSED PESTICIDE APPLICATOR Vishal Hui MD [facility] CPT-29148 Level 3 Est. Patient 08:41:09 LICENSED PESTICIDE APPLICATOR Vishal Hui MD [facility] CPT-34317 Level 4 Est. Patient 10:19:35 LICENSED PESTICIDE APPLICATOR Vishal Hui MD [facility] CPT-36275 Level 3 Est. Patient 13:35:45 CDT Vishal Hui MD [facility] CPT-99668 Level 4 Est. Patient 10:08:37 CDT Vishal Hui MD [facility] CPT-23844 Level 3 Est. Patient 11:22:10 CDT Vishal Hui MD [facility] CPT-89485 Level 3 Est. Patient 11:03:32 CDT Sahara Rodriguez MD PhD [facility] CPT-03141 Level 3 Est. Patient 09:41:35 CDT Vishal Hui MD [facility] CPT-40331 Level 3 Est. Patient 12:00:41 CDT Neeraj Collins MD [facility] CPT-05266 Level 3 Est. Patient 09:16:24 CDT Vishal Hui MD [facility] CPT-97740 Level 4 Est. Patient 13:59:09 CDT Neeraj Collins MD [facility] CPT-42889 Level 3 Est. Patient 15:19:43 CDT Renzo Thornton [facility] CPT-19758 Level 3 Est. Patient 18:10:26 CDT Sahara Rodriguez MD PhD [facility] CPT-45640 Level 3 Est. Patient 14:49:50 CDT Vishal Hui MD [facility] CPT-09189 Level 4 Est. Patient 18:41:46 CDT Neeraj Collins MD [facility] CPT-93777 Level 4 Est. Patient 09:18:38 LICENSED PESTICIDE APPLICATOR Vishal Hui MD [facility] CPT-09057 Level 3 Est. Patient 14:43:55 LICENSED PESTICIDE APPLICATOR Vishal Hui MD [facility] CPT-57791 Level 3 Est. Patient 15:26:33 LICENSED PESTICIDE APPLICATOR Sahara Rodriguez MD PhD [facility] CPT-55142 Level 3 Est. Patient 10:32:14 LICENSED PESTICIDE APPLICATOR Vishal Hui MD [facility] CPT-76391 Level 3 Est. Patient 15:12:52 LICENSED PESTICIDE APPLICATOR Vishal Hui MD [facility] CPT-35518 Level 4 Est. Patient 09:19:27 CDT Vishal Hui MD [facility] CPT-09408 Level 3 Est. Patient 15:53:00 CDT Renzo Thornton DO [facility] CPT-13031 Level 3 Est. Patient 15:50:30 CDT Renzo Thornton [facility] CPT-18754 Level 3 Est. Patient 16:55:24 CDT Vishal Hui MD [facility] Procedures Code Procedure Name Date Entry Date Standard Description CPT-01244 UA Dip Auto (Floor Use Only) 11:36:47 CDT CPT-59733 Venipuncture Draw Fee 10:53:17 CDT CPT-31487 EKG Trac and Interp - XRAY USE ONLY 15:59:30 CDT 09/13 CPT-65275 Chest 1V Frontal - XRAY USE ONLY 15:59:30 CDT CPT-74560 Venipuncture Draw Fee 15:44:02 CDT CPT-39540 Venipuncture Draw Fee 08:41:12 CDT CPT-42915 Abd compl w upright - XRAY USE ONLY 10:27:59 CDT 06/28 CPT-89292 Smoking Cessation counseling 11:15:58 LICENSED PESTICIDE APPLICATOR CPT-G0439 [facility] Annual Wellness Exam 09:30:58 LICENSED PESTICIDE APPLICATOR CPT-02435 TSH - LAB USE ONLY 08:50:26 LICENSED PESTICIDE APPLICATOR CPT-85064 CBC - LAB USE ONLY 08:50:26 LICENSED PESTICIDE APPLICATOR CPT-54609 Venipuncture Draw Fee 08:50:26 LICENSED PESTICIDE APPLICATOR CPT-84044 Abx/Therapy Injection 17:34:30 LICENSED PESTICIDE APPLICATOR CPT-88290 Nexplanon Removal with Reinsertion 14:09:32 CDT CPT-J7307 Nexplanon (Implant) 14:09:32 CDT CPT-OV Office Visit 14:09:32 CDT CPT-77668 UA w micro - LAB USE ONLY 16:21:13 CDT CPT-48847 Wet Mount - LAB USE ONLY 16:21:13 CDT CPT-84358 First Vx - Ix admin for Medicare patients 14:37:47 CDT CPT-72698 Fluzone Preservative Free Intramuscular Suspension 14:37 :47 CDT CPT-79996 Abx/Therapy Injection 13:54:22 CDT CPT-25510 Abx/Therapy Injection 08:47:09 CDT CPT-30198 Abx/Therapy Injection 13:29:56 CDT CPT-31947 Abx/Therapy Injection 08:36:16 CDT CPT-76749 Wet Mount - LAB USE ONLY 17:44:58 CDT CPT-97336 UA w micro - LAB USE ONLY 17:44:58 CDT CPT-27077 CMP - LAB USE ONLY 17:44:58 CDT CPT-24960 Venipuncture Draw Fee 17:44:58 CDT CPT-37976 Cervical Min 4V - XRAY USE ONLY 09:01:40 CDT CPT-20868 Chest 2V Frontal and Lat - XRAY USE ONLY 11:06:31 CDT CPT-03086 EKG Trac and Interp - XRAY USE ONLY 11:31:43 CDT 08/26 CPT-J3420 Vitamin B12 1000mcg (Cyanocobalamin) 08:10:26 LICENSED PESTICIDE APPLICATOR 04/12 CPT-87831 Abx/Therapy Injection 08:10:26 LICENSED PESTICIDE APPLICATOR CPT-G0438 Initial Annual Wellness Exam 19:01:01 LICENSED PESTICIDE APPLICATOR CPT-J3420 Vitamin B12 1000mcg (Cyanocobalamin) 16:57:46 CDT 08/14 CPT-48489 Recombivax HB Injection Suspension 5 MCG/0.5ML 08:37:50 LICENSED PESTICIDE APPLICATOR CPT-22777 Immunization Single Admin 08:37:50 LICENSED PESTICIDE APPLICATOR CPT-J3420 Vitamin B12 1000mcg (Cyanocobalamin) 08:32:16 LICENSED PESTICIDE APPLICATOR 03/11 CPT-70698 Abx/Therapy Injection 08:32:16 LICENSED PESTICIDE APPLICATOR CPT-12683 Chest 2V Frontal and Lat 11:46:38 LICENSED PESTICIDE APPLICATOR CPT-12833 Venipuncture Draw Fee 09:12:45 LICENSED PESTICIDE APPLICATOR CPT-J3420 Vitamin B12 1000mcg (Cyanocobalamin) 08:50:15 LICENSED PESTICIDE APPLICATOR 02/08 CPT-97174 Abx/Therapy Injection 08:50:15 LICENSED PESTICIDE APPLICATOR CPT-Cryo Cryotherapy 10:19:35 LICENSED PESTICIDE APPLICATOR CPT-000 Give Appropriate Flu Vaccine 09:22:16 CDT CPT-J3420 Vitamin B12 1000mcg (Cyanocobalamin) 19:08:57 CDT 01/11 CPT-94462 Abx/Therapy Injection 19:08:57 CDT CPT-J3420 Vitamin B12 1000mcg (Cyanocobalamin) 08:19:08 CDT 12/11 CPT-14134 Abx/Therapy Injection 08:19:08 CDT CPT-J3420 Vitamin B12 1000mcg (Cyanocobalamin) 14:48:00 CDT 11/09 CPT-25023 Abx/Therapy Injection 14:47:59 CDT CPT-J3420 Vitamin B12 1000mcg (Cyanocobalamin) 08:34:04 CDT 10/09 CPT-07630 Abx/Therapy Injection 08:34:04 CDT CPT-J3420 Vitamin B12 1000mcg (Cyanocobalamin) 09:18:52 CDT 09/11 CPT-04048 Abx/Therapy Injection 09:18:52 CDT CPT-J3420 Vitamin B12 1000mcg (Cyanocobalamin) 08:35:44 CDT 09/04 CPT-47597 Abx/Therapy Injection 08:35:44 CDT CPT-08029 Immunization Single Admin 11:07:16 CDT CPT-00509 Hepatitis B adult IM 11:07:16 CDT CPT-J3420 Vitamin B12 1000mcg (Cyanocobalamin) 11:00:49 CDT 08/28 CPT-J1040 Depo Medrol 80 mg (Methyl Prednisolone Acetate) 11:00: 49 CDT CPT-60812 Abx/Therapy Injection 11:00:49 CDT CPT-J1040 Depo Medrol 80 mg (Methyl Prednisolone Acetate) 09:16: 23 CDT CPT-J3420 Vitamin B12 1000mcg (Cyanocobalamin) 08:27:05 CDT 08/20 CPT-19219 Abx/Therapy Injection 08:27:05 CDT CPT-42602 Recombivax HB Injection Suspension 5 MCG/0.5ML 10:00:41 CDT CPT-65674 Administration single or combination vaccine inc oral 10 :00:41 CDT CPT-75081 Sono transvag pelvis non OB uterus ovaries cervix 16:36: 57 CDT CPT-34749 LS spine comp w obliq 09:50:55 LICENSED PESTICIDE APPLICATOR CPT-76018 Abd compl w upright 09:50:55 LICENSED PESTICIDE APPLICATOR CPT-J1100 Decadron 4mg (Dexamethasone) 15:51:24 LICENSED PESTICIDE APPLICATOR CPT-J1030 Depo Medrol 40 mg (Methyl Prednisolone Acetate) 15:51: 24 LICENSED PESTICIDE APPLICATOR CPT-68108 Abx/Therapy Injection 15:51:24 LICENSED PESTICIDE APPLICATOR CPT-J1100 Decadron 4mg (Dexamethasone) 15:26:33 LICENSED PESTICIDE APPLICATOR CPT-J1030 Depo Medrol 40 mg (Methyl Prednisolone Acetate) 15:26: 33 LICENSED PESTICIDE APPLICATOR CPT-05014 Sono retroperitoneal complete kidneys and bladder 17:15: 30 CDT CPT-31755 Abd compl w upright 16:09:25 CDT CPT-J1100 Decadron 8mg (Dexamethasone) 17:07:57 CDT CPT-95916 Abx/Therapy Injection 17:07:57 CDT CPT-J1100 Decadron 8mg (Dexamethasone) 16:55:24 CDT CPT-24784 Chest 2V Frontal and Lat 16:32:44 CDT
--- OUTSIDE RECORDS SUMMARY | 2016-11-15 00:59 | XMS REPORT | Clinical Summary ---
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 Juliet Kimbrough TRACE CLERK Dependence on other enabling machines and [...] Active Ahmet Carbajal MD Generalized anxiety disorder Director Dance well woman exam V72.31 Resolved Suzan Boo [...] for closed fracture ICD-823.01 Inactive Suzan Boo TRACE CLERK Vaginal discharge ICD-623.5 Inactive Suzan Boo TRACE CLERK DYSURIA ICD-788.1 Inactive Suzan Boo TRACE CLERK Cellulitis and abscess of breast ICD-611.0 Inactive Ahmet Carbajal MD Nondisplaced transverse fracture of shaft of left fibula, subsequent encounter for closed fracture with routine healing Inactive Suzan Boo TRACE CLERK Bronchitis, acute ICD-466.0 Inactive Ahmet Carbajal MD Director Dance well woman exam ICD-V72.31 Inactive Suzan Boo TRACE CLERK Bronchitis, acute with mild bronchospasm ICD-466.0 Inactive Suzan Boo TRACE CLERK Tracheitis ICD-464.10 Inactive Suzan Boo TRACE CLERK Impetigo ICD-684 Inactive Suzan Boo TRACE CLERK Furuncle of buttock ICD-680.5 Inactive Suzan Boo TRACE CLERK Vaginal irritation ICD-623.9 Inactive Suzan Boo TRACE CLERK Scalding pain on urination ICD-788.1 Inactive Suzan Boo TRACE CLERK Abdominal pain, right upper quadrant ICD-789.01 Inactive Suzan Boo TRACE CLERK Dark urine ICD-791.9 Inactive Suzan Boo TRACE CLERK Preop exam ICD-V72.84 Inactive Suzan Boo APRN Medication List Medication Instructions Start Date Stop Date Generic Name NDC Status Provider Patient Instruction JANUVIA 100 MG TABS Take one by mouth daily SITAGLIPTIN PHOSPHATE 41832199220 Active Malgersontg Ziglari OUTREACH CLINICIAN Active METFORMIN HCL 500 MG [id number] one a day for a week, then 2 a day METFORMIN HCL 83968066014 Active Maliheh Ziglari OUTREACH CLINICIAN Active NYSTATIN 390865 UNIT/GM CREA apply three times a day to yeast rash NYSTATIN 91657660830 No Longer Active Maliheh Ziglari OUTREACH CLINICIAN Active BACTRIM DS 800-160 MG TABS 1 twice a day SULFAMETHOXAZOLE-TRIMETHOPRIM 96525815588 No Longer Active Maliheh Ziglari OUTREACH CLINICIAN Active MUPIROCIN 2 % OINT apply twice a day MUPIROCIN 00665441885 Active Suzan Boo APRN Active BQEVQYOIZE-GWLO-VKIMSSCT 50-325-40 MG TABS 1 to 2 four times a day as needed for headache [id number] 70367742998 Active Suzan Boo APRN Active METOCLOPRAMIDE HCL 10 MG TABS 1 two times as needed for nausea and headaches METOCLOPRAMIDE HCL 99343406110 Active Meena Ortiz MA Active AMITIZA 24 MCG ORAL CAPS one capsule twice daily LUBIPROSTONE 98673152797 Active Suzan Boo APRN Active MIRALAX ORAL POWD 17GMS DAILY IN WATER POLYETHYLENE GLYCOL 3350 88883220861 No Longer Active Suzan Boo APRN Active LACTULOSE 10 GM/15ML ORAL SOLN 30mL oral BID for IBS-C LACTULOSE 42157952834 No Longer Active Suzan Boo APRN Active BACTRIM DS 800-160 MG TAB Take one (1) tablet by mouth twice a day for 5 days TRIMETHOPRIM-SULFAMETHOXAZOLE 58172298019 No Longer Active Suzan Boo APRN Active MUPIROCIN 2 % OINT apply twice a day MUPIROCIN 79145349260 No Longer Active Suzan Boo APRN Active BACTRIM DS 800-160 MG TABS 1 twice a day SULFAMETHOXAZOLE-TRIMETHOPRIM 95695590354 No Longer Active Suzan Boo APRN Active DIFLUCAN 150 MG TABS 1 by mouth for yeast FLUCONAZOLE 09817709033 No Longer Active Suzan Boo APRN Active LINZESS 290 MCG ORAL CAPS 1 tab 30 min prior to first meal each day. LINACLOTIDE 24398078378 No Longer Active Sheila Calderon LPN Active AMITIZA 8 MCG ORAL CAPS 1 tab BID LUBIPROSTONE 71448647574 No Longer Active Lynda Xiao FERMENTER HELPER Active TESSALON PERLES 100 MG CAPS 1 three times a day as needed for cough BENZONATATE 66926554695 No Longer Active Suzan Boo APRN Active BACTRIM DS 800-160 MG TABS 1 twice a day SULFAMETHOXAZOLE-TRIMETHOPRIM 00978156798 No Longer Active Suzan Boo APRN Active DIFLUCAN 150 MG TABS 1 by mouth for yeast FLUCONAZOLE 87798815366 No Longer Active Suzan Boo APRN Active EQ NICOTINE 21 MG/24HR TRANS PT24 Apply daily to stop smoking NICOTINE 86549667591 No Longer Active Suzan Boo APRN Active PREDNISONE 10 MG TABS 2 daily for 5 days then 1 daily for 5 days PREDNISONE 42935045711 No Longer Active Suzan Boo APRN Active LEVAQUIN 500 MG TABS 1 daily for infection LEVOFLOXACIN 82186414482 No Longer Active Suzan Boo APRN Active TROPICAMIDE 0.5 % OPHTH SOLN 1 drop PRN eye spasms TROPICAMIDE 21052490771 No Longer Active Suzan Boo APRN Active PREDNISONE 20 MG TAB 1 tablet daily x 4 days PREDNISONE 65035616865 No Longer Active Suzan Boo APRN Active ACETAMINOPHEN-CODEINE 120-12 MG/5ML SOLN 5 ml by mouth every 4-6 hours if needed for cough ACETAMINOPHEN-CODEINE 19105763561 No Longer Active Suzan Boo APRN Active KEFLEX 500 MG CAP 1 po qid CEPHALEXIN 12781092389 No Longer Active Suzan Boo APRN Active FLOVENT HFA 110 MCG/ACT AERO 2 puffs inhaled b.i.d. FLUTICASONE PROPIONATE HFA 30946321295 Active Renzo Thornton DO Active RISPERDAL 4 MG ORAL TABS 1 tab at bedtime RISPERIDONE 93068976999 Active Samantha Rothman RMA Active ZOFRAN 4 MG TABS 1 po q6hr PRN Nausea ONDANSETRON HCL No Longer Active Suzan Boo APRN Active FLUTICASONE PROPIONATE 50 MCG/ACT SUSP 2 sprays each nostril daily before bed. FLUTICASONE PROPIONATE 04779272277 No Longer Active Suzan Boo APRN Active ASPIRIN 325 MG ORAL TABS 1 tab q.d ASPIRIN 52693021538 No Longer Active Suzan Boo APRN Active HALOPERIDOL 10 MG ORAL TABS 1 tab q.d HALOPERIDOL 47333003399 No Longer Active Suzan Boo APRN Active GUAIFENESIN-CODEINE 100-10 MG/5ML SYRP 5ml every 4 to 6 hours as needed for cough GUAIFENESIN-CODEINE 91928862827 No Longer Active Suzan Boo APRN Active ZITHROMAX Z-EARNEST 250 MG TABS 2 today and then 1 daily for 4 days AZITHROMYCIN 76929556548 No Longer Active Suzan Boo APRN Active CLONAZEPAM 1 MG ORAL TABS 1 twice a day and an additional 1 tablet every other day as needed for pseudoseizures or anxiety CLONAZEPAM 89536227245 Active Suzan Boo APRN Active HYDROCODONE-ACETAMINOPHEN 5-325 MG ORAL TABS 1 tab two times a day HYDROCODONE-ACETAMINOPHEN 12637881253 No Longer Active Ahmet Carbajal MD Active LAMICTAL 100 MG ORAL TABS 1 tab 2 times qd. LAMOTRIGINE 03849549349 Active Ahmet Carbajal MD Active PREDNISONE 20 MG TABS 2 daily for 5 days then 1 daily for 5 days PREDNISONE 44336636159 No Longer Active Ahmet Carbajal MD Active FLUTICASONE PROPIONATE 50 MCG/ACT SUSP 1 to 2 sprays each nostril daily for allergies FLUTICASONE PROPIONATE 11107054454 Active Tila Valenzuela Active BENADRYL 25 MG CAP 4 po at bedtime for insomnia DIPHENHYDRAMINE HCL 40120817581 No Longer Active Ahmet Carbajal MD Active ADVAIR DISKUS 250-50 MCG/DOSE INH AEPB 1 puff twice a day for asthma FLUTICASONE-SALMETEROL 20253031277 No Longer Active Ahmet Carbajal MD Active KLONOPIN 1 MG ORAL TABS 1 tab po TID CLONAZEPAM 71202413040 No Longer Active Ahmet Carbajal MD Active ABILIFY MAINTENA 400 MG IM SUSR 400mg injection every 26 days ARIPIPRAZOLE 06732087279 No Longer Active Ahmet Carbajal MD Active TRAMADOL HCL 50 MG TABS 1/2-1 tab TID PRN TRAMADOL HCL 80567465398 No Longer Active Ahmet Carbajal MD Active BACTRIM DS 800-160 MG TABS 1 twice a day SULFAMETHOXAZOLE- TRIMETHOPRIM 59796482577 No Longer Active Ahmet Carbajal MD Active PROAIR HFA 108 (90 BASE) MCG/ACT AERS 2 puffs four times a day as needed 2015 ALBUTEROL SULFATE 70391465280 Active Honey Hinton TRACE CLERK Active MONISTAT 7 COMBO PACK WOODROW 100 & 2 MG-% (9GM) VAG KIT 1 applicatorful per vagina q pm x 7 MICONAZOLE NITRATE 09375075300 No Longer Active Ahmet Carbajal MD Active FLAGYL 500 MG TAB 1 tablet by mouth bid METRONIDAZOLE 16152284852 No Longer Active Ahmet Carbajal MD Active OXYCODONE HCL ER 10 MG ORAL T12A 1/2 tab by mouth every 4 hours prn OXYCODONE HCL 50336438733 No Longer Active Ahmet Carbajal MD Active METHYLPREDNISOLONE 4 MG ORAL TABS po daily METHYLPREDNISOLONE 55267291547 No Longer Active Ahmet Carbajal MD Active LEVOFLOXACIN 500 MG ORAL TABS po daily LEVOFLOXACIN 53109080785 No Longer Active Ahmet Carbajal MD Active VIIBRYD 10 MG ORAL TABS Take 1 tablet once a day VILAZODONE HCL 79127650717 No Longer Active Ahmet Carbajal MD Active TOPAMAX 50 MG ORAL TABS 1 tab twice daily TOPIRAMATE 38673951417 No Longer Active Ahmet Carbajal MD Active DICLOFENAC SODIUM 50 MG TBEC 1 tablet by mouth four times daily PRN Pain 2015 DICLOFENAC SODIUM 07563949403 No Longer Active Ahmet Carbajal MD Active ADZENYS XR-ODT 6.3 MG ORAL TBED 1 tab po daily for ADHD AMPHETAMINE 69019596477 No Longer Active Ahmet Carbajal MD Active CHANTIX 1 MG TABS 1 twice a day to help quit smoking VARENICLINE TARTRATE 82588217242 No Longer Active Dipika Burgos MD Active CHANTIX STARTING MONTH EARNEST 0.5 MG X 11 & 1 MG X 42 TABS take as directed 2015 VARENICLINE TARTRATE 78896512173 No Longer Active Dipika Burgos MD Active TESSALON PERLES 100 MG CAP 1 to 2 tablets by mouth 3 times daily as needed for cough BENZONATATE 82324986360 No Longer Active Luigi Martínez APRN Active IMITREX 50 MG ORAL TABS 0.5 po x 1 PRN Headache. May repeat dose x 1 in 2 hours if needed SUMATRIPTAN SUCCINATE 08348129277 Active TAMARA Casey Active HYDROCODONE-ACETAMINOPHEN 5-325 MG TABS 1 to 2 four times a day as needed for pain use until can be seen by specialist HYDROCODONE- ACETAMINOPHEN 22822544995 No Longer Active Vishal Hui MD Active PROAIR HFA 108 (90 BASE) MCG/ACT AERS 2 puffs four times a day as needed 2015 ALBUTEROL SULFATE 57467927241 No Longer Active Vishal Hui MD Active PREDNISONE 20 MG TABS 2 daily for 5 days then 1 daily for 5 days PREDNISONE 85587130586 No Longer Active Vishal Hui MD Active ZITHROMAX Z-EARNEST 250 MG TABS 2 today and then 1 daily for 4 days AZITHROMYCIN 07157677598 No Longer Active Vishal Hui MD Active DICLOFENAC POTASSIUM TABS Take 1 tablet twice a day (pt. is not sure of the dose.) DICLOFENAC POTASSIUM TABS 65331077309 No Longer Active Vishal Hui MD Active VERAPAMIL HCL ER 120 MG ORAL CR-TABS Take 1 tablet by mouth twice a day. VERAPAMIL HCL 76633592992 Active Vishal Hui MD Active FLAGYL 500 MG TAB 1 tablet by mouth bid METRONIDAZOLE 67767810499 No Longer Active Vishal Hui MD Active VALIUM 5 MG TAB Take 1-2 tablets daily DIAZEPAM 16701197851 No Longer Active Fabiola Johnson APRN Active METOPROLOL TARTRATE 25 MG ORAL TABS 1/2 tablet twice daily for heart rate and blood pressure METOPROLOL TARTRATE 62201598866 No Longer Active Fabiola Johnson APRN Active MIRALAX PACK 1 po qd PRN Constipation POLYETHYLENE GLYCOL 3350 25756571115 No Longer Active Ahmet Carbajal MD Active MINIPRESS 2 MG CAPS 4 cap po at night PRAZOSIN HCL 91058316226 No Longer Active Ahmet Carbajal MD Active PIROXICAM 20 MG CAPS 1 cap po qd PRN Pain PIROXICAM 33205566996 No Longer Active Ahmet Carbajal MD Active TRAMADOL HCL 50 MG TABS 1-2 po TID PRN Pain TRAMADOL HCL 71798819612 No Longer Active Ahmet Carbajal MD Active METOPROLOL TARTRATE 50 MG TAB 1 po bid METOPROLOL TARTRATE 69390639012 No Longer Active Ahmet Carbajal MD Active ABILIFY 15 MG ORAL TABS 1 tab daily ARIPIPRAZOLE 99085535773 No Longer Active Ahmet Carbajal MD Active PROZAC 20 MG ORAL CAPS 1 tab daily FLUOXETINE HCL 44801958419 No Longer Active Ahmet Carbajal MD Active AMBIEN 5 MG ORAL TABS 1 tab at bedtime ZOLPIDEM TARTRATE 79416307886 No Longer Active Ahmet Carbajal MD Active PREDNISONE 20 MG TAB 2 tabs daily for 4 days, 1 tab daily for 4 days, 1/2 tab daily for 4 days PREDNISONE 40437290120 No Longer Active Ahmet Carbajal MD Active KEFLEX 500 MG CAP 1 po TID x 10 days CEPHALEXIN 10603176339 No Longer Active Vishal Hui MD Active SAPHRIS 5 MG SUBL 1 po bid ASENAPINE MALEATE 31918946274 No Longer Active Luigi Martínez APRN Active LATUDA 80 MG TABS Take one by mouth daily LURASIDONE HCL 74030410963 No Longer Active Jillina Fralebron NORIEGA Active AMLODIPINE BESYLATE 5 MG TABS 1 tablet by mouth daily AMLODIPINE BESYLATE 15186566384 No Longer Active Jillina Fralebron NORIEGA Active AMITRIPTYLINE HCL 100 MG TAB one at hs AMITRIPTYLINE HCL 65089498193 No Longer Active Vishal Hui MD Active TRAZODONE HCL 100 MG TAB take 1 at bedtime TRAZODONE HCL 86519354500 No Longer Active Vishal Hui MD Active VYVANSE 40 MG CAPS 1 daily, LISDEXAMFETAMINE DIMESYLATE 98675410633 No Longer Active Vishal Hui MD Active IBUPROFEN 600 MG TAB 1 po TID PRN IBUPROFEN 89251911231 No Longer Active Vishal Hui MD Active PROZAC 20 MG CAP Take one by mouth daily FLUOXETINE HCL 26042504504 No Longer Active Vishal Hui MD Active BACTRIM DS 800-160 MG TABS 1 pill by mouth twice daily SULFAMETHOXAZOLE-TRIMETHOPRIM 72331744576 No Longer Active Sahara Rodriguez MD PhD Active DIFLUCAN 150 MG TAB 1 tablet by mouth daily FLUCONAZOLE 38994067460 No Longer Active Vishal Hui MD Active TIZANIDINE HCL 4 MG TABS 1 po q6hr PRN Muscle Spasm/Back Pain TIZANIDINE HCL 30575325321 Active TAMARA Casey Active CLINDAMYCIN HCL 150 MG CAPS 1 four times a day CLINDAMYCIN HCL 02040802589 No Longer Active Neeraj Collins MD Active KEFLEX 500 MG ORAL CAPS 1 cap QID by mouth CEPHALEXIN 62547652871 No Longer Active Neeraj Collins MD Active DIFLUCAN 150 MG TABS 1 pill every other day x 2 doses FLUCONAZOLE 57292453272 No Longer Active Sahara Rodriguez MD PhD Active MELATONIN 3 MG CAPS 2 po q hs MELATONIN 62568406517 No Longer Active Sahara Rodriguez MD PhD Active MULTIVITAMINS CAPS Take one by mouth daily MULTIPLE VITAMIN 63919890358 No Longer Active Sahara Rodriguez MD PhD Active BACTRIM DS 800-160 MG TAB 1 tab by mouth twice daily TRIMETHOPRIM-SULFAMETHOXAZOLE 21129567149 No Longer Active Sahara Rodriguez MD PhD Active [facility] PROBIOTIC ORAL CHEW 2 daily po PROBIOTIC PRODUCT 72912024275 No Longer Active Sahara Rodriguez MD PhD Active BACTRIM DS 800-160 MG TABS 1 po BID x 7 days SULFAMETHOXAZOLE-TRIMETHOPRIM 29485163778 No Longer Active Vishal Hui MD Active CHANTIX STARTING MONTH EARNEST 0.5 MG X 11 & 1 MG X 42 TABS 0.5mg daily for 3 days , then 0.5mg BID for 4 days, then 1mg BID VARENICLINE TARTRATE 05749774307 No Longer Active TAMARA Gray Active VERAPAMIL HCL CR 120 MG TAB CR 1 po bid VERAPAMIL HCL 84054370681 No Longer Active Vishal Hui MD Active METOPROLOL SUCCINATE 50 MG TB24 1 tablet by mouth daily METOPROLOL SUCCINATE 86507733285 No Longer Active Vishal Hui MD Active SAPHRIS 10 MG SUBL 1 tab po bid ASENAPINE MALEATE 76436505700 No Longer Active Vishal Hui MD Active LISINOPRIL 20 MG TABS 1 tab po qd LISINOPRIL 86908377673 No Longer Active Vishal Hui MD Active LATUDA 20 MG TABS Take one by mouth daily LURASIDONE HCL 15104028413 No Longer Active Vishal Hui MD Active TRAZODONE HCL 50 MG TABS 1/2 tab po qd prn for anxiety TRAZODONE HCL 34291910595 No Longer Active Vishal Hui MD Active OMEPRAZOLE 20 MG TBEC 1 po q a.m. 30min prior to first food intake OMEPRAZOLE 77446673245 Active TAMARA Casey Active RANITIDINE HCL 150 MG CAPS 1 twice a day RANITIDINE HCL 24819948346 Active Lynda Xiao LPN Active LINZESS 290 MCG CAPS Take one by mouth daily LINACLOTIDE 84142525302 No Longer Active Vishal Hui MD Active SAPHRIS 5 MG SUBL 1 tab po qd ASENAPINE MALEATE 69599215971 No Longer Active Vishal Hui MD Active ZALEPLON 10 MG CAPS 1 cap po every other night ZALEPLON 65544998832 No Longer Active Vishal Hui MD Active LYRICA 50 MG CAPS 1 tab po TID PREGABALIN 35019062194 No Longer Active Vishal Hui MD Active LORATADINE 10 MG TABS 1 tab po qd LORATADINE 50252453107 No Longer Active Vishal Hui MD Active VERAPAMIL HCL ER 180 MG CR-TABS 1 tab po bid VERAPAMIL HCL 09435555206 No Longer Active Vishal Hui MD Active MIRALAX POWD 1 capfull once daily POLYETHYLENE GLYCOL 3350 24629041183 No Longer Active Vishal Hui MD Active PREDNISONE 20 MG TABS 1 tab po qd PREDNISONE 28728395700 No Longer Active Renzo Thornton DO Active LEVOFLOXACIN 500 MG TABS 1 tab po qd LEVOFLOXACIN 81665324339 No Longer Active Renzo Thornton DO Active BUSPIRONE HCL 15 MG TABS 1 tab po TID BUSPIRONE HCL 72764920194 No Longer Active Renzo Thornton DO Active BENZTROPINE MESYLATE 1 MG TABS 1 tab po qd BENZTROPINE MESYLATE 45285245504 No Longer Active Renzo Thornton DO Active ATENOLOL 25 MG TABS 1 tab po qd ATENOLOL 73371673947 No Longer Active Renzo Thornton DO Active ESCITALOPRAM OXALATE 20 MG TABS 1 tab po qd ESCITALOPRAM OXALATE 59395638288 No Longer Active Renzo Thornton DO Active ADVAIR DISKUS 250-50 MCG/DOSE AEPB 1 puff BID FLUTICASONE-SALMETEROL 74858248278 No Longer Active Renzo W Norberto DO Active PREDNISONE 20 MG TAB 2 tabs daily for 3 days, 1 tab daily for 3 days, 1/2 tab daily for 2 days PREDNISONE 20056119760 No Longer Active Vishal Hui MD Active CEFDINIR 300 MG CAPS by mouth twice a day CEFDINIR 24568493996 No Longer Active Vishal Hui MD Active LANSOPRAZOLE 30 MG CPDR 1 cap po qd LANSOPRAZOLE 89254699580 No Longer Active Vishal Hui MD Active BACLOFEN 20 MG TABS 1 tab po tid BACLOFEN 56589286944 No Longer Active Vishal Hui MD Active ADVAIR DISKUS 250-50 MCG/DOSE AEPB 1 puff BID ADVAIR DISKUS 250-50 MCG/DOSE AEPB FLUTICASONE-SALMETEROL Inactive ESCITALOPRAM OXALATE 20 MG TABS 1 tab po qd ESCITALOPRAM OXALATE 20 MG TABS 812959 ESCITALOPRAM OXALATE Inactive ATENOLOL 25 MG TABS 1 tab po qd ATENOLOL 25 MG TABS 904518 ATENOLOL Inactive BENZTROPINE MESYLATE 1 MG TABS 1 tab po qd BENZTROPINE MESYLATE 1 MG TABS 701577 BENZTROPINE MESYLATE Inactive BUSPIRONE HCL 15 MG TABS 1 tab po TID BUSPIRONE HCL 15 MG TABS 356456 BUSPIRONE HCL Inactive LEVOFLOXACIN 500 MG TABS 1 tab po qd LEVOFLOXACIN 500 MG TABS 135156 LEVOFLOXACIN Inactive PREDNISONE 20 MG TABS 1 tab po qd PREDNISONE 20 MG TABS 586647 PREDNISONE Inactive MIRALAX POWD 1 capfull once daily MIRALAX POWD 449847 POLYETHYLENE GLYCOL 3350 Inactive VERAPAMIL HCL ER 180 MG CR-TABS 1 tab po bid VERAPAMIL HCL ER 180 MG CR-TABS VERAPAMIL HCL Inactive LORATADINE 10 MG TABS 1 tab po qd LORATADINE 10 MG TABS 648865 LORATADINE Inactive LYRICA 50 MG CAPS 1 tab po TID LYRICA 50 MG CAPS PREGABALIN Inactive ZALEPLON 10 MG CAPS 1 cap po every other night ZALEPLON 10 MG CAPS 728441 ZALEPLON Inactive SAPHRIS 5 MG SUBL 1 tab po qd SAPHRIS 5 MG SUBL ASENAPINE MALEATE Inactive TRAZODONE HCL 50 MG TABS 1/2 tab po qd prn for anxiety TRAZODONE HCL 50 MG TABS 667129 TRAZODONE HCL Inactive LATUDA 20 MG TABS Take one by mouth daily LATUDA 20 MG TABS LURASIDONE HCL Inactive LISINOPRIL 20 MG TABS 1 tab po qd LISINOPRIL 20 MG TABS 789342 LISINOPRIL Inactive SAPHRIS 10 MG SUBL 1 [...] twice daily BACTRIM DS 800-160 MG TAB 125274 TRIMETHOPRIM-SULFAMETHOXAZOLE Inactive MULTIVITAMINS CAPS Take one by mouth daily MULTIVITAMINS CAPS MULTIPLE VITAMIN Inactive MELATONIN 3 MG CAPS 2 po q hs MELATONIN 3 MG CAPS 412103 MELATONIN Inactive KEFLEX 500 MG ORAL CAPS 1 cap QID by mouth KEFLEX 500 MG ORAL CAPS 754941 CEPHALEXIN Inactive CLINDAMYCIN HCL 150 MG CAPS 1 four times a day CLINDAMYCIN HCL 150 MG CAPS 518855 CLINDAMYCIN HCL Inactive DIFLUCAN 150 MG TAB 1 tablet by mouth daily DIFLUCAN 150 MG TAB 264963 FLUCONAZOLE Inactive PROZAC 20 MG CAP Take one by mouth daily PROZAC 20 MG CAP 410414 FLUOXETINE HCL Inactive IBUPROFEN 600 MG TAB 1 po TID PRN IBUPROFEN 600 MG TAB 073975 IBUPROFEN Inactive VYVANSE 40 MG CAPS 1 daily, VYVANSE 40 MG CAPS LISDEXAMFETAMINE DIMESYLATE Inactive TRAZODONE HCL 100 MG TAB take 1 at bedtime TRAZODONE HCL 100 MG TAB 311635 TRAZODONE HCL Inactive AMITRIPTYLINE HCL 100 MG TAB one at hs AMITRIPTYLINE HCL 100 MG TAB 713159 AMITRIPTYLINE HCL Inactive AMLODIPINE BESYLATE 5 MG TABS 1 tablet by mouth daily AMLODIPINE BESYLATE 5 MG TABS 908821 AMLODIPINE BESYLATE Inactive LATUDA 80 MG TABS Take one by mouth daily LATUDA 80 MG TABS LURASIDONE HCL Inactive SAPHRIS 5 MG SUBL 1 po bid SAPHRIS 5 MG SUBL ASENAPINE MALEATE Inactive PREDNISONE 20 MG TAB 2 tabs daily for 4 days, 1 tab daily for 4 days, 1/2 tab daily for 4 days PREDNISONE 20 MG TAB 009456 PREDNISONE Inactive AMBIEN 5 MG ORAL TABS 1 tab at bedtime AMBIEN 5 MG ORAL TABS 282634 ZOLPIDEM TARTRATE Inactive PROZAC 20 MG ORAL CAPS 1 tab daily PROZAC 20 MG ORAL CAPS 963156 FLUOXETINE HCL Inactive ABILIFY 15 MG ORAL TABS 1 tab daily ABILIFY 15 MG ORAL TABS 734918 ARIPIPRAZOLE Inactive METOPROLOL TARTRATE 50 MG TAB 1 po bid METOPROLOL TARTRATE 50 MG TAB 976864 METOPROLOL TARTRATE Inactive TRAMADOL HCL 50 MG TABS 1-2 po TID PRN Pain TRAMADOL HCL 50 MG TABS 779573 TRAMADOL HCL Inactive PIROXICAM 20 MG CAPS 1 cap po qd PRN Pain PIROXICAM 20 MG CAPS 535030 PIROXICAM Inactive MINIPRESS 2 MG CAPS 4 cap po at night MINIPRESS 2 MG CAPS 569675 PRAZOSIN HCL Inactive MIRALAX PACK 1 po qd PRN Constipation MIRALAX PACK 793058 POLYETHYLENE GLYCOL 3350 Inactive METOPROLOL TARTRATE 25 MG ORAL TABS 1/2 tablet twice daily for heart rate and blood pressure METOPROLOL TARTRATE 25 MG ORAL TABS 655395 METOPROLOL TARTRATE Inactive VALIUM 5 MG TAB Take 1-2 tablets daily VALIUM 5 MG TAB 847066 DIAZEPAM Inactive FLAGYL 500 MG TAB 1 tablet by mouth bid FLAGYL 500 MG TAB 335910 METRONIDAZOLE Inactive DICLOFENAC POTASSIUM TABS Take 1 tablet twice a day (pt. is not sure of the dose.) DICLOFENAC POTASSIUM TABS DICLOFENAC POTASSIUM TABS Inactive ZITHROMAX Z-EARNEST 250 MG TABS 2 today and then 1 daily for 4 days ZITHROMAX Z-EARNEST 250 MG TABS 5098208 AZITHROMYCIN Inactive PREDNISONE 20 MG TABS 2 daily for 5 days then 1 daily for 5 days PREDNISONE 20 MG TABS 247642 PREDNISONE Inactive PROAIR HFA 108 (90 BASE) MCG/ACT AERS 2 puffs four times a day as needed 2015 PROAIR HFA 108 (90 BASE) MCG/ACT AERS ALBUTEROL SULFATE Inactive HYDROCODONE-ACETAMINOPHEN 5-325 MG TABS 1 to 2 four times a day as needed for pain use until can be seen by specialist HYDROCODONE- ACETAMINOPHEN 5-325 MG TABS 566552 HYDROCODONE-ACETAMINOPHEN Inactive TESSALON PERLES 100 MG CAP 1 to 2 tablets by mouth 3 times daily as needed for cough TESSALON PERLES 100 MG CAP 613932 BENZONATATE Inactive CHANTIX STARTING MONTH EARNEST 0.5 [...] Pain 2015 DICLOFENAC SODIUM 50 MG TBEC 375661 DICLOFENAC SODIUM Inactive TOPAMAX 50 MG ORAL TABS 1 tab twice daily TOPAMAX 50 MG ORAL TABS 147183 TOPIRAMATE Inactive VIIBRYD 10 MG ORAL TABS Take 1 tablet once a day VIIBRYD 10 MG ORAL TABS VILAZODONE HCL Inactive LEVOFLOXACIN 500 MG ORAL TABS po daily LEVOFLOXACIN 500 MG ORAL TABS 377064 LEVOFLOXACIN Inactive METHYLPREDNISOLONE 4 MG ORAL TABS po daily METHYLPREDNISOLONE 4 MG ORAL TABS 392621 METHYLPREDNISOLONE Inactive OXYCODONE HCL ER 10 MG ORAL T12A 1/2 tab by mouth every 4 hours prn OXYCODONE HCL ER 10 MG ORAL T12A OXYCODONE HCL Inactive FLAGYL 500 MG TAB 1 tablet by mouth bid FLAGYL 500 MG TAB 623897 METRONIDAZOLE Inactive MONISTAT 7 COMBO PACK WOODROW 100 & 2 MG-% (9GM) VAG KIT 1 applicatorful per vagina q pm x 7 MONISTAT 7 COMBO PACK WOODROW 100 & 2 MG-% (9GM) VAG KIT MICONAZOLE NITRATE Inactive BACTRIM DS 800-160 MG TABS 1 twice a day BACTRIM DS 800-160 MG TABS 086416 SULFAMETHOXAZOLE-TRIMETHOPRIM Inactive TRAMADOL HCL 50 MG TABS 1/2-1 tab TID PRN TRAMADOL HCL 50 MG TABS 534933 TRAMADOL HCL Inactive ABILIFY MAINTENA 400 MG IM SUSR 400mg injection every 26 days ABILIFY MAINTENA 400 MG IM SUSR ARIPIPRAZOLE Inactive KLONOPIN 1 MG ORAL TABS 1 tab po TID KLONOPIN 1 MG ORAL TABS 568879 CLONAZEPAM Inactive ADVAIR DISKUS 250-50 MCG/DOSE INH AEPB 1 puff twice a day for asthma ADVAIR DISKUS 250-50 MCG/DOSE INH AEPB FLUTICASONE- SALMETEROL Inactive BENADRYL 25 MG CAP 4 po at bedtime for insomnia BENADRYL 25 MG CAP DIPHENHYDRAMINE HCL Inactive PREDNISONE 20 MG TABS 2 daily for 5 days then 1 daily for 5 days PREDNISONE 20 MG TABS 099150 PREDNISONE Inactive HYDROCODONE-ACETAMINOPHEN 5-325 MG ORAL TABS 1 tab two times a day HYDROCODONE-ACETAMINOPHEN 5-325 MG ORAL TABS [id number] HYDROCODONE-ACETAMINOPHEN Inactive ZITHROMAX Z-EARNEST 250 MG TABS 2 today and then 1 daily for 4 days ZITHROMAX Z-EARNEST 250 MG TABS [id number] AZITHROMYCIN Inactive GUAIFENESIN-CODEINE 100-10 MG/5ML SYRP 5ml every 4 to 6 hours as needed for cough GUAIFENESIN-CODEINE 100-10 MG/5ML SYRP [id number] GUAIFENESIN-CODEINE Inactive HALOPERIDOL 10 MG ORAL TABS 1 tab q.d HALOPERIDOL 10 MG ORAL TABS [id number] HALOPERIDOL Inactive ASPIRIN 325 MG ORAL TABS 1 tab q.d ASPIRIN 325 MG ORAL TABS [id number] ASPIRIN Inactive FLUTICASONE PROPIONATE 50 MCG/ACT SUSP 2 sprays each nostril daily before bed. FLUTICASONE PROPIONATE 50 MCG/ACT SUSP 1810071 FLUTICASONE PROPIONATE Inactive ZOFRAN 4 MG TABS 1 po q6hr PRN Nausea ZOFRAN 4 MG TABS 624245 ONDANSETRON HCL Inactive KEFLEX 500 MG CAP 1 po qid KEFLEX 500 MG CAP 007951 CEPHALEXIN Inactive ACETAMINOPHEN-CODEINE 120-12 MG/5ML SOLN 5 ml by mouth every 4-6 hours if needed for cough ACETAMINOPHEN-CODEINE 120-12 MG/5ML SOLN 739812 ACETAMINOPHEN-CODEINE Inactive PREDNISONE 20 MG TAB 1 tablet daily x 4 days PREDNISONE 20 MG TAB 300453 PREDNISONE Inactive TROPICAMIDE 0.5 % OPHTH SOLN 1 drop PRN eye spasms TROPICAMIDE 0.5 % OPHTH SOLN 827530 TROPICAMIDE Inactive LEVAQUIN 500 MG TABS 1 daily for infection LEVAQUIN 500 MG TABS 831504 LEVOFLOXACIN Inactive PREDNISONE 10 MG TABS 2 daily for 5 days then 1 daily for 5 days PREDNISONE 10 MG TABS 023788 PREDNISONE Inactive EQ NICOTINE 21 MG/24HR TRANS [...] mouth for yeast DIFLUCAN 150 MG TABS 331691 FLUCONAZOLE Inactive BACTRIM DS 800-160 MG TABS 1 twice a day BACTRIM DS 800-160 MG TABS 19820521 SULFAMETHOXAZOLE-TRIMETHOPRIM Inactive MUPIROCIN 2 % OINT apply twice a day MUPIROCIN 2 % OINT 431457 MUPIROCIN Inactive BACTRIM DS 800-160 MG TAB Take one (1) tablet by mouth twice a day for 5 days BACTRIM DS 800-160 MG TAB 347123 TRIMETHOPRIM- SULFAMETHOXAZOLE Inactive LACTULOSE 10 GM/15ML ORAL SOLN 30mL oral BID for IBS-C LACTULOSE 10 GM/15ML ORAL SOLN 427492 LACTULOSE Inactive MIRALAX ORAL POWD 17GMS DAILY IN WATER MIRALAX ORAL POWD 721373 POLYETHYLENE GLYCOL 3350 Inactive BACTRIM DS 800-160 MG TABS 1 twice a day BACTRIM DS 800-160 MG TABS 19820521 SULFAMETHOXAZOLE-TRIMETHOPRIM Inactive NYSTATIN 107468 UNIT/GM CREA apply three times a day to yeast rash NYSTATIN 737445 UNIT/GM CREA 490499 NYSTATIN Inactive CEFDINIR 300 MG CAPS by mouth twice a day CEFDINIR 300 MG CAPS 605335 CEFDINIR Inactive PREDNISONE 20 MG TAB 2 tabs daily for 3 days, 1 tab daily for 3 days, 1/2 tab daily for 2 days PREDNISONE 20 MG TAB 832906 PREDNISONE Inactive BACTRIM DS 800-160 MG TABS 1 po BID x 7 days BACTRIM DS 800-160 MG TABS 681709 SULFAMETHOXAZOLE-TRIMETHOPRIM Inactive DIFLUCAN 150 MG TABS 1 pill every other day x 2 doses DIFLUCAN 150 MG TABS 786544 FLUCONAZOLE Inactive BACTRIM DS 800-160 MG TABS 1 pill by mouth twice daily BACTRIM DS 800-160 MG TABS 19820521 SULFAMETHOXAZOLE-TRIMETHOPRIM Inactive KEFLEX 500 MG CAP 1 po TID x 10 days KEFLEX 500 MG CAP 661017 CEPHALEXIN Inactive Advance Directives Directive Description Start [...] % 11.0-15.0 platelet count 443 THOUSAND/UL 10*3/mm3 [phone]/03/01 mean platelet volume 8.2 fL 7.5-12.5 leukocyte [...] % 11.0-15.0 platelet count 349 THOUSAND/UL 10*3/mm3 390-637 1704/04/12 mean platelet volume 8.4 fL 7.5-12.5 Lab Report: CBC W/DIFF, Comp. Metabolic Panel, HGBA1C, Magnesium - Chemistry sodium, serum 141 mmol/L 486-902 4581/07/24 carbon dioxide, venous blood 27.8 mmol/L 21.0-32.0 [...] 369 10^3/MM^3 10*3/mm3 142-424 Lab Report: Chlamydia/GC APTIMA/35317 - Lab chlamydia DNA probe NOT DETECTED NOT DETECTED Lab Report: Chlamydia/GC APTIMA/62370 - Microbiology Neisseria gonorrhoeae DNA probe NOT DETECTED NOT DETECTED Lab Report: Chlamydia/GC APTIMA/31329, Urinalysis, Complete, with Reflex ... - Lab chlamydia DNA probe NOT DETECTED NOT DETECTED Lab Report: Chlamydia/GC APTIMA/13720, Urinalysis, Complete, with Reflex ... - Microbiology Neisseria gonorrhoeae DNA probe NOT DETECTED NOT DETECTED Lab Report: Chlamydia/GC APTIMA/18736, Urinalysis, Complete, with Reflex ... - Urinalysis microalbumin/total urine volume 2 mg/L Units converted. See lab report for original value. microalbumin/creatinine ratio, urine 9 MCG/MG CREAT mg/L <30 Lab Report: Comp. Metabolic Panel - Chemistry sodium, serum 140 mmol/L 227-043 4736/06/28 carbon dioxide, venous blood 23.8 mmol/L 21.0-32.0 [...] negative Encounters Code Encounter Date Provider Facility CPT-68288 Level 5 Est. Patient 12:01:37 CDT Maude Miranda [facility] CPT-21828 Level 3 Est. Patient 11:36:[address] [facility] CPT-50824 Level 3 Est. [facility]53[facility] 3 Est[facility]:08[facility] Level 3 Est. Patient 15:55:20 CDT [facility] CPT-37317 Level 4 Est. [facility]:49[facility] Level 3 Est. Patient 10:00:25 CDT Suzan Boo [facility] CPT-03339 Level 3 Est. Patient 10:29:30 CDT Suzan Boo [facility] CPT-81607 Level 3 Est. Patient 11:04:38 CDT Renzo Jenn Thornton [facility] CPT-26360 Level 3 Est. Patient 11:15:58 CONSTRUCTION EQUIPMENT MECHANIC Renzo Thornton [facility] CPT-81838 Level 3 Est. Patient 15:28:23 CONSTRUCTION EQUIPMENT MECHANIC Suzan Boo [facility] CPT-86035 Level 4 Est. Patient 10:20:54 CONSTRUCTION EQUIPMENT MECHANIC Suzan Boo [facility] CPT-86514 Level 3 Est. Patient 11:47:37 CONSTRUCTION EQUIPMENT MECHANIC Ahmet Carbajal MD [facility]-43209 Level 3 Est. Patient 10:40:11 CONSTRUCTION EQUIPMENT MECHANIC Ahmet Carbajal MD [facility] CPT-47500 Level 3 Est. Patient 15:07:06 CONSTRUCTION EQUIPMENT MECHANIC Neeraj Collins MD [facility] CPT-58499 Level 4 Est. Patient 14:45:00 CONSTRUCTION EQUIPMENT MECHANIC Ahmet Carbajal MD [facility] CPT-08611 Level 3 Est. Patient 13:59:59 CDT Luigi Martínez [facility] CPT-87492 Level 3 Est. Patient 18:18:53 CDT Neeraj Collins MD [facility] CPT-07366 Level 3 Est. Patient 15:50:44 CDT Vishal Hui MD [facility]-56067 Level 3 Est. Patient 11:36:17 CDT Ahmet Carbajal MD [facility]-80407 Level 3 Est. Patient 13:29:16 CDT Vishal Hui MD [facility] CPT-52528 Level 3 Est. Patient 14:27:52 CDT Neeraj Collins MD [facility] CPT-14260 Level 3 Est. Patient 08:56:03 CDT Luigi Martínez [facility] CPT-32377 Level 4 Est. Patient 12:11:48 CDT Fabiola Johnson [facility] CPT-81874 Level 3 New Patient 16:53:37 CDT Albert Caldera MD [facility] CPT-06819 Level 3 Est. Patient 11:25:49 CDT Renzo Thornton DO [facility] CPT-16334 Level 3 Est. Patient 15:22:01 CDT Ahmet Carbajal MD [facility] CPT-59976 Level 4 Est. Patient 09:00:51 CONSTRUCTION EQUIPMENT MECHANIC Vishal Hui MD [facility] CPT-57773 Level 3 Est. Patient 11:37:33 CONSTRUCTION EQUIPMENT MECHANIC Vishal Hui MD [facility] CPT-01379 Level 3 Est. Patient 08:41:09 CONSTRUCTION EQUIPMENT MECHANIC Vishal Hui MD [facility] CPT-79002 Level 4 Est. Patient 10:19:35 CONSTRUCTION EQUIPMENT MECHANIC Vishal Hui MD [facility] CPT-73393 Level 3 Est. Patient 13:35:45 CDT Vishal Hui MD [facility] CPT-87414 Level 4 Est. Patient 10:08:37 CDT Vishal Hui MD [facility] CPT-97008 Level 3 Est. Patient 11:22:10 CDT Vishal Hui MD [facility] CPT-04305 Level 3 Est. Patient 11:03:32 CDT Sahara Rodriguez MD PhD [facility] CPT-12733 Level 3 Est. Patient 09:41:35 CDT Vishal Hui MD [facility] CPT-63879 Level 3 Est. Patient 12:00:41 CDT Neeraj Collins MD [facility] CPT-32551 Level 3 Est. Patient 09:16:24 CDT Vishal Hui MD [facility] CPT-47381 Level 4 Est. Patient 13:59:09 CDT Neeraj Collins MD [facility] CPT-08637 Level 3 Est. Patient 15:19:43 CDT Renzo Thornton [facility] CPT-75293 Level 3 Est. Patient 18:10:26 CDT Sahara Rodriguez MD PhD [facility] CPT-87411 Level 3 Est. Patient 14:49:50 CDT Vishal Hui MD [facility] CPT-51338 Level 4 Est. Patient 18:41:46 CDT Neeraj Collins MD [facility] CPT-23340 Level 4 Est. Patient 09:18:38 CONSTRUCTION EQUIPMENT MECHANIC Vishal Hui MD [facility] CPT-11555 Level 3 Est. Patient 14:43:55 CONSTRUCTION EQUIPMENT MECHANIC Vishal Hiu MD [facility] CPT-45719 Level 3 Est. Patient 15:26:33 CONSTRUCTION EQUIPMENT MECHANIC Sahara Rodriguez MD PhD [facility] CPT-97370 Level 3 Est. Patient 10:32:14 CONSTRUCTION EQUIPMENT MECHANIC Vishal Hui MD [facility] CPT-49267 Level 3 Est. Patient 15:12:52 CONSTRUCTION EQUIPMENT MECHANIC Vishal Hui MD [facility] CPT-74616 Level 4 Est. Patient 09:19:27 CDT Vishal Hui MD [facility] CPT-57791 Level 3 Est. Patient 15:53:00 CDT Renzo Thornton [facility] CPT-86041 Level 3 Est. Patient 15:50:30 CDT Renzo Thornton [facility] CPT-13199 Level 3 Est. Patient 16:55:24 CDT Vishal Hui MD [facility] Procedures Code Procedure Name Date Entry Date Standard Description CPT-35058 UA Dip Auto (Floor Use Only) 11:36:47 CDT CPT-90628 Venipuncture Draw Fee 10:53:17 CDT CPT-03956 EKG Trac and Interp - XRAY USE ONLY 15:59:30 CDT 09/13 CPT-23348 Chest 1V Frontal - XRAY USE ONLY 15:59:30 CDT CPT-02664 Venipuncture Draw Fee 15:44:02 CDT CPT-00528 Venipuncture Draw Fee 08:41:12 CDT CPT-87143 Abd compl w upright - XRAY USE ONLY 10:27:59 CDT 06/28 CPT-29375 Smoking Cessation counseling 11:15:58 [employer]STRUCTION EQUIPMENT MECHANIC CPT-G0439 [facility] Annual Wellness Exam 09:30:58 CONSTRUCTION EQUIPMENT MECHANIC CPT-53860 TSH - LAB USE ONLY 08:50:26 CONSTRUCTION EQUIPMENT MECHANIC CPT-55078 CBC - LAB USE ONLY 08:50:26 CONSTRUCTION EQUIPMENT MECHANIC CPT-26231 Venipuncture Draw Fee 08:50:26 CONSTRUCTION EQUIPMENT MECHANIC CPT-17945 Abx/Therapy Injection 17:34:30 CONSTRUCTION EQUIPMENT MECHANIC CPT-11838 Nexplanon Removal with Reinsertion 14:09:32 CDT CPT-J7307 Nexplanon (Implant) 14:09:32 CDT CPT-OV Office Visit 14:09:32 CDT CPT-68854 UA w micro - LAB USE ONLY 16:21:13 CDT CPT-69728 Wet Mount - LAB USE ONLY 16:21:13 CDT CPT-46575 First Vx - Ix admin for Medicare patients 14:37:47 CDT CPT-04205 Fluzone Preservative Free Intramuscular Suspension 14:37 :47 CDT CPT-76112 Abx/Therapy Injection 13:54:22 CDT CPT-42158 Abx/Therapy Injection 08:47:09 CDT CPT-52772 Abx/Therapy Injection 13:29:56 CDT CPT-65492 Abx/Therapy Injection 08:36:16 CDT CPT-24600 Wet Mount - LAB USE ONLY 17:44:58 CDT CPT-22687 UA w micro - LAB USE ONLY 17:44:58 CDT CPT-20855 CMP - LAB USE ONLY 17:44:58 CDT CPT-09148 Venipuncture Draw Fee 17:44:58 CDT CPT-65984 Cervical Min 4V - XRAY USE ONLY 09:01:40 CDT CPT-01469 Chest 2V Frontal and Lat - XRAY USE ONLY 11:06:31 CDT CPT-58446 EKG Trac and Interp - XRAY USE ONLY 11:31:43 CDT 08/26 CPT-J3420 Vitamin B12 1000mcg (Cyanocobalamin) 08:10:26 CONSTRUCTION EQUIPMENT MECHANIC 04/12 CPT-30565 Abx/Therapy Injection 08:10:26 CONSTRUCTION EQUIPMENT MECHANIC CPT-G0438 Initial Annual Wellness Exam 19:01:01 CONSTRUCTION EQUIPMENT MECHANIC CPT-J3420 Vitamin B12 1000mcg (Cyanocobalamin) 16:57:46 CDT 08/14 CPT-60229 Recombivax HB Injection Suspension 5 MCG/0.5ML 08:37:50 CONSTRUCTION EQUIPMENT MECHANIC CPT-99393 Immunization Single Admin 08:37:50 CONSTRUCTION EQUIPMENT MECHANIC CPT-J3420 Vitamin B12 1000mcg (Cyanocobalamin) 08:32:16 CONSTRUCTION EQUIPMENT MECHANIC 03/11 CPT-59369 Abx/Therapy Injection 08:32:16 CONSTRUCTION EQUIPMENT MECHANIC CPT-79686 Chest 2V Frontal and Lat 11:46:38 CONSTRUCTION EQUIPMENT MECHANIC CPT-59150 Venipuncture Draw Fee 09:12:45 CONSTRUCTION EQUIPMENT MECHANIC CPT-J3420 Vitamin B12 1000mcg (Cyanocobalamin) 08:50:15 CONSTRUCTION EQUIPMENT MECHANIC 02/08 CPT-01867 Abx/Therapy Injection 08:50:15 CONSTRUCTION EQUIPMENT MECHANIC CPT-Cryo Cryotherapy 10:19:35 CONSTRUCTION EQUIPMENT MECHANIC CPT-000 Give Appropriate Flu Vaccine 09:22:16 CDT CPT-J3420 Vitamin B12 1000mcg (Cyanocobalamin) 19:08:57 CDT 01/11 CPT-53608 Abx/Therapy Injection 19:08:57 CDT CPT-J3420 Vitamin B12 1000mcg (Cyanocobalamin) 08:19:08 CDT 12/11 CPT-68344 Abx/Therapy Injection 08:19:08 CDT CPT-J3420 Vitamin B12 1000mcg (Cyanocobalamin) 14:48:00 CDT 11/09 CPT-60021 Abx/Therapy Injection 14:47:59 CDT CPT-J3420 Vitamin B12 1000mcg (Cyanocobalamin) 08:34:04 CDT 10/09 CPT-58477 Abx/Therapy Injection 08:34:04 CDT CPT-J3420 Vitamin B12 1000mcg (Cyanocobalamin) 09:18:52 CDT 09/11 CPT-34237 Abx/Therapy Injection 09:18:52 CDT CPT-J3420 Vitamin B12 1000mcg (Cyanocobalamin) 08:35:44 CDT 09/04 CPT-97352 Abx/Therapy Injection 08:35:44 CDT CPT-69614 Immunization Single Admin 11:07:16 CDT CPT-73566 Hepatitis B adult IM 11:07:16 CDT CPT-J3420 Vitamin B12 1000mcg (Cyanocobalamin) 11:00:49 CDT 08/28 CPT-J1040 Depo Medrol 80 mg (Methyl Prednisolone Acetate) 11:00: 49 CDT CPT-60647 Abx/Therapy Injection 11:00:49 CDT CPT-J1040 Depo Medrol 80 mg (Methyl Prednisolone Acetate) 09:16: 23 CDT CPT-J3420 Vitamin B12 1000mcg (Cyanocobalamin) 08:27:05 CDT 08/20 CPT-72435 Abx/Therapy Injection 08:27:05 CDT CPT-11312 Recombivax HB Injection Suspension 5 MCG/0.5ML 10:00:41 CDT CPT-19167 Administration single or combination vaccine inc oral 10 :00:41 CDT CPT-33386 Sono transvag pelvis non OB uterus ovaries cervix 16:36: 57 CDT CPT-06587 LS spine comp w obliq 09:50:55 CONSTRUCTION EQUIPMENT MECHANIC CPT-87530 Abd compl w upright 09:50:55 CONSTRUCTION EQUIPMENT MECHANIC CPT-J1100 Decadron 4mg (Dexamethasone) 15:51:24 CONSTRUCTION EQUIPMENT MECHANIC CPT-J1030 Depo Medrol 40 mg (Methyl Prednisolone Acetate) 15:51: 24 CONSTRUCTION EQUIPMENT MECHANIC CPT-67933 Abx/Therapy Injection 15:51:24 CONSTRUCTION EQUIPMENT MECHANIC CPT-J1100 Decadron 4mg (Dexamethasone) 15:26:33 CONSTRUCTION EQUIPMENT MECHANIC CPT-J1030 Depo Medrol 40 mg (Methyl Prednisolone Acetate) 15:26: 33 CONSTRUCTION EQUIPMENT MECHANIC CPT-80806 Sono retroperitoneal complete kidneys and bladder 17:15: 30 CDT CPT-90528 Abd compl w upright 16:09:25 CDT CPT-J1100 Decadron 8mg (Dexamethasone) 17:07:57 CDT CPT-65877 Abx/Therapy Injection 17:07:57 CDT CPT-J1100 Decadron 8mg (Dexamethasone) 16:55:24 CDT CPT-15932 Chest 2V Frontal and Lat 16:32:44 CDT
--- OUTSIDE RECORDS SUMMARY | 2016-11-15 02:09 | XMS REPORT | Clinical Summary ---
Author Author Admin, [facility] Organization [facility] [employer] Address Unknown Phone Unavailable Allergies, Adverse Reactions, [...] Active Ahmet Carbajal MD Generalized anxiety disorder Dental Ceramist well woman exam V72.31 Resolved Suzan Boo [...] for closed fracture ICD-823.01 Inactive Suzan Boo GRIEVANCE AND APPEALS COORDINATOR Vaginal discharge ICD-623.5 Inactive Suzan Boo GRIEVANCE AND APPEALS COORDINATOR DYSURIA ICD-788.1 Inactive Suzan Boo GRIEVANCE AND APPEALS COORDINATOR Cellulitis and abscess of breast ICD-611.0 Inactive Ahmet Carbajal MD Nondisplaced transverse fracture of shaft of left fibula, subsequent encounter for closed fracture with routine healing Inactive Suzan Boo GRIEVANCE AND APPEALS COORDINATOR Bronchitis, acute ICD-466.0 Inactive Ahmet Carbajal MD Dental Ceramist well woman exam ICD-V72.31 Inactive Suzan Boo GRIEVANCE AND APPEALS COORDINATOR Bronchitis, acute with mild bronchospasm ICD-466.0 Inactive Suzan Boo GRIEVANCE AND APPEALS COORDINATOR Tracheitis ICD-464.10 Inactive Suzan Boo GRIEVANCE AND APPEALS COORDINATOR Impetigo ICD-684 Inactive Suzan Boo GRIEVANCE AND APPEALS COORDINATOR Furuncle of buttock ICD-680.5 Inactive Suzan Boo GRIEVANCE AND APPEALS COORDINATOR Vaginal irritation ICD-623.9 Inactive Suzan Boo GRIEVANCE AND APPEALS COORDINATOR Scalding pain on urination ICD-788.1 Inactive Suzan Boo GRIEVANCE AND APPEALS COORDINATOR Abdominal pain, right upper quadrant ICD-789.01 Inactive Suzan Boo GRIEVANCE AND APPEALS COORDINATOR Dark urine ICD-791.9 Inactive Suzan Boo APRN Preop exam ICD-V72.84 Inactive Suzan Boo APRN Medication List Medication Instructions Start Date Stop Date Generic Name ND Status Provider Patient Instruction METFORMIN HCL 500 MG [id number] one a day for a week, then 2 a day METFORMIN HCL 62696269415 Active Malharvey Zigledenilson HADDAD Active NYSTATIN 546789 UNIT/GM CREA apply three times a day to yeast rash NYSTATIN 44190659091 No Longer Active Maliheh Ziglari [employer] Active BACTRIM DS 800-160 MG TABS 1 twice a day SULFAMETHOXAZOLE-TRIMETHOPRIM 60157554081 No Longer Active Maliheh Ziglari [employer] WORKER Active MUPIROCIN 2 % OINT apply twice a day MUPIROCIN 10498016281 Active Suzan Boo APRN Active [id number] 50-325-40 MG TABS 1 to 2 four times a day as needed for headache [id number] 13059999049 Active Suzan Boo APRN Active METOCLOPRAMIDE HCL 10 MG TABS 1 two times as needed for nausea and headaches METOCLOPRAMIDE HCL 17101092098 Active Meena Ortiz MA Active AMITIZA 24 MCG ORAL CAPS one capsule twice daily LUBIPROSTONE 45218591055 Active Suzan Boo APRN Active MIRALAX ORAL POWD 17GMS DAILY IN WATER POLYETHYLENE GLYCOL 3350 02096009834 No Longer Active Suzan Boo APRN Active LACTULOSE 10 GM/15ML ORAL SOLN 30mL oral BID for IBS-C LACTULOSE 58753944565 No Longer Active Suzan Boo APRN Active BACTRIM DS 800-160 MG TAB Take one (1) tablet by mouth twice a day for 5 days TRIMETHOPRIM-SULFAMETHOXAZOLE 90637056269 No Longer Active Suzan Boo APRN Active MUPIROCIN 2 % OINT apply twice a day MUPIROCIN 38711766673 No Longer Active Suzan Boo APRN Active BACTRIM DS 800-160 MG TABS 1 twice a day SULFAMETHOXAZOLE-TRIMETHOPRIM 92213778652 No Longer Active Suzan Boo APRN Active DIFLUCAN 150 MG TABS 1 by mouth for yeast FLUCONAZOLE 27455461965 No Longer Active Suzan Boo APRN Active LINZESS 290 MCG ORAL CAPS 1 tab 30 min prior to first meal each day. LINACLOTIDE 37243820246 No Longer Active Sheila Calderon LPN Active AMITIZA 8 MCG ORAL CAPS 1 tab BID LUBIPROSTONE 42145501948 No Longer Active Lynda Xiao LPN Active TESSALON PERLES 100 MG CAPS 1 three times a day as needed for cough BENZONATATE 03034438875 No Longer Active Suzan Boo APRN Active BACTRIM DS 800-160 MG TABS 1 twice a day SULFAMETHOXAZOLE-TRIMETHOPRIM 97683499238 No Longer Active Suzan Boo APRN Active DIFLUCAN 150 MG TABS 1 by mouth for yeast FLUCONAZOLE 70755401651 No Longer Active Suzan Boo APRN Active EQ NICOTINE 21 MG/24HR TRANS PT24 Apply daily to stop smoking NICOTINE 00084097515 No Longer Active Suzan Boo APRN Active PREDNISONE 10 MG TABS 2 daily for 5 days then 1 daily for 5 days PREDNISONE 37064716519 No Longer Active Suzan Boo APRN Active LEVAQUIN 500 MG TABS 1 daily for infection LEVOFLOXACIN 83859406580 No Longer Active Suzan Boo APRN Active TROPICAMIDE 0.5 % OPHTH SOLN 1 drop PRN eye spasms TROPICAMIDE 90358647325 No Longer Active Suzan Boo APRN Active PREDNISONE 20 MG TAB 1 tablet daily x 4 days PREDNISONE 93271887971 No Longer Active Suzan Boo APRN Active ACETAMINOPHEN-CODEINE 120-12 MG/5ML SOLN 5 ml by mouth every 4-6 hours if needed for cough ACETAMINOPHEN-CODEINE 44985251880 No Longer Active Suzan Boo APRN Active KEFLEX 500 MG CAP 1 po qid CEPHALEXIN 07617796356 No Longer Active Suzan Boo APRN Active FLOVENT HFA 110 MCG/ACT AERO 2 puffs inhaled b.i.d. FLUTICASONE PROPIONATE HFA 25172609165 Active eRnzo Thornton DO Active RISPERDAL 4 MG ORAL TABS 1 tab at bedtime RISPERIDONE 12006612528 Active Samantha WAGNERA Active ZOFRAN 4 MG TABS 1 po q6hr PRN Nausea ONDANSETRON HCL No Longer Active Suzan Boo APRN Active FLUTICASONE PROPIONATE 50 MCG/ACT SUSP 2 sprays each nostril daily before bed. FLUTICASONE PROPIONATE 98632161256 No Longer Active Suzan Boo APRN Active ASPIRIN 325 MG ORAL TABS 1 tab q.d ASPIRIN 03396294798 No Longer Active Suzan Boo APRN Active HALOPERIDOL 10 MG ORAL TABS 1 tab q.d HALOPERIDOL 51095236327 No Longer Active Suzan Boo APRN Active GUAIFENESIN-CODEINE 100-10 MG/5ML SYRP 5ml every 4 to 6 hours as needed for cough GUAIFENESIN-CODEINE 59739130275 No Longer Active Suzan Boo APRN Active ZITHROMAX Z-EARNEST 250 MG TABS 2 today and then 1 daily for 4 days AZITHROMYCIN 14515182136 No Longer Active Suzan Boo APRN Active CLONAZEPAM 1 MG ORAL TABS 1 twice a day and an additional 1 tablet every other day as needed for pseudoseizures or anxiety CLONAZEPAM 76127869181 Active Suzan Boo APRN Active HYDROCODONE-ACETAMINOPHEN 5-325 MG ORAL TABS 1 tab two times a day HYDROCODONE-ACETAMINOPHEN 98809051349 No Longer Active Ahmet Carbajal MD Active LAMICTAL 100 MG ORAL TABS 1 tab 2 times qd. LAMOTRIGINE 49407428822 Active Ahmet Carbajal MD Active PREDNISONE 20 MG TABS 2 daily for 5 days then 1 daily for 5 days PREDNISONE 62736510825 No Longer Active Ahmet Carbajal MD Active FLUTICASONE PROPIONATE 50 MCG/ACT SUSP 1 to 2 sprays each nostril daily for allergies FLUTICASONE PROPIONATE 30266770292 Active Tila Valenzuela Active BENADRYL 25 MG CAP 4 po at bedtime for insomnia DIPHENHYDRAMINE HCL 07600425687 No Longer Active Ahmet Carbajal MD Active ADVAIR DISKUS 250-50 MCG/DOSE INH AEPB 1 puff twice a day for asthma FLUTICASONE-SALMETEROL 49493101497 No Longer Active Ahmet Carbajal MD Active KLONOPIN 1 MG ORAL TABS 1 tab po TID CLONAZEPAM 55603024348 No Longer Active Ahmet Carbajal MD Active ABILIFY MAINTENA 400 MG IM SUSR 400mg injection every 26 days ARIPIPRAZOLE 88193022617 No Longer Active Ahmet Carbajal MD Active TRAMADOL HCL 50 MG TABS 1/2-1 tab TID PRN TRAMADOL HCL 20949526607 No Longer Active Ahmet Carbajal MD Active BACTRIM DS 800-160 MG TABS 1 twice a day SULFAMETHOXAZOLE- TRIMETHOPRIM 92982373157 No Longer Active Ahmet Carbajal MD Active PROAIR HFA 108 (90 BASE) MCG/ACT AERS 2 puffs four times a day as needed 2015 ALBUTEROL SULFATE 02376858830 Active Honey Hinton APRN Active MONISTAT 7 COMBO PACK WOODROW 100 & 2 MG-% (9GM) VAG KIT 1 applicatorful per vagina q pm x 7 MICONAZOLE NITRATE 61813860362 No Longer Active Ahmet Carbajal MD Active FLAGYL 500 MG TAB 1 tablet by mouth bid METRONIDAZOLE 65523948040 No Longer Active Ahmet Carbajal MD Active OXYCODONE HCL ER 10 MG ORAL T12A 1/2 tab by mouth every 4 hours prn OXYCODONE HCL 06903208236 No Longer Active Ahmet Carbajal MD Active METHYLPREDNISOLONE 4 MG ORAL TABS po daily METHYLPREDNISOLONE 94599797948 No Longer Active Ahmet Carbajal MD Active LEVOFLOXACIN 500 MG ORAL TABS po daily LEVOFLOXACIN 43091271628 No Longer Active Ahmet Carbajal MD Active VIIBRYD 10 MG ORAL TABS Take 1 tablet once a day VILAZODONE HCL 53584649892 No Longer Active Ahmet Carbajal MD Active TOPAMAX 50 MG ORAL TABS 1 tab twice daily TOPIRAMATE 99309162210 No Longer Active Ahmet Carbajal MD Active DICLOFENAC SODIUM 50 MG TBEC 1 tablet by mouth four times daily PRN Pain 2015 DICLOFENAC SODIUM 06868052848 No Longer Active Ahmet Carbajal MD Active ADZENYS XR-ODT 6.3 MG ORAL TBED 1 tab po daily for ADHD AMPHETAMINE 15949938527 No Longer Active Ahmet Carbajal MD Active CHANTIX 1 MG TABS 1 twice a day to help quit smoking VARENICLINE TARTRATE 04217515787 No Longer Active Dipika Burgos MD Active CHANTIX STARTING MONTH EARNEST 0.5 MG X 11 & 1 MG X 42 TABS take as directed 2015 VARENICLINE TARTRATE 58686995316 No Longer Active Dipika Burgos MD Active TESSALON PERLES 100 MG CAP 1 to 2 tablets by mouth 3 times daily as needed for cough BENZONATATE 90047548812 No Longer Active Luigi Martínez APRN Active IMITREX 50 MG ORAL TABS 0.5 po x 1 PRN Headache. May repeat dose x 1 in 2 hours if needed SUMATRIPTAN SUCCINATE 75515467999 Active TAMARA Casey Active HYDROCODONE-ACETAMINOPHEN 5-325 MG TABS 1 to 2 four times a day as needed for pain use until can be seen by specialist HYDROCODONE- ACETAMINOPHEN 21729448377 No Longer Active Vishal Hui MD Active PROAIR HFA 108 (90 BASE) MCG/ACT AERS 2 puffs four times a day as needed 2015 ALBUTEROL SULFATE 17804912342 No Longer Active Vishal Hui MD Active PREDNISONE 20 MG TABS 2 daily for 5 days then 1 daily for 5 days PREDNISONE 35835406362 No Longer Active Vishal Hui MD Active ZITHROMAX Z-EARNEST 250 MG TABS 2 today and then 1 daily for 4 days AZITHROMYCIN 39286553408 No Longer Active Vishal Hui MD Active DICLOFENAC POTASSIUM TABS Take 1 tablet twice a day (pt. is not sure of the dose.) DICLOFENAC POTASSIUM TABS 61734359841 No Longer Active Vishal Hui MD Active VERAPAMIL HCL ER 120 MG ORAL CR-TABS Take 1 tablet by mouth twice a day. VERAPAMIL HCL 50711966767 Active Vishal Hui MD Active FLAGYL 500 MG TAB 1 tablet by mouth bid METRONIDAZOLE 09412060896 No Longer Active Vishal Hui MD Active VALIUM 5 MG TAB Take 1-2 tablets daily DIAZEPAM 22399425391 No Longer Active Fabiola Johnson APRN Active METOPROLOL TARTRATE 25 MG ORAL TABS 1/2 tablet twice daily for heart rate and blood pressure METOPROLOL TARTRATE 08830842041 No Longer Active Fabiola Johnson APRN Active MIRALAX PACK 1 po qd PRN Constipation POLYETHYLENE GLYCOL 3350 36194522661 No Longer Active Ahmet Carbajal MD Active MINIPRESS 2 MG CAPS 4 cap po at night PRAZOSIN HCL 74191133954 No Longer Active Ahmet Carbajal MD Active PIROXICAM 20 MG CAPS 1 cap po qd PRN Pain PIROXICAM 61977589738 No Longer Active Ahmet Crabajal MD Active TRAMADOL HCL 50 MG TABS 1-2 po TID PRN Pain TRAMADOL HCL 79920094215 No Longer Active Ahmet Carbajal MD Active METOPROLOL TARTRATE 50 MG TAB 1 po bid METOPROLOL TARTRATE 71474348598 No Longer Active Ahmet Carbajal MD Active ABILIFY 15 MG ORAL TABS 1 tab daily ARIPIPRAZOLE 67340157973 No Longer Active Ahmet Carbajal MD Active PROZAC 20 MG ORAL CAPS 1 tab daily FLUOXETINE HCL 56746205546 No Longer Active Ahmet Carbajal MD Active AMBIEN 5 MG ORAL TABS 1 tab at bedtime ZOLPIDEM TARTRATE 79661152358 No Longer Active Ahmet Carbajal MD Active PREDNISONE 20 MG TAB 2 tabs daily for 4 days, 1 tab daily for 4 days, 1/2 tab daily for 4 days PREDNISONE 67164571184 No Longer Active Ahmet Carbajal MD Active KEFLEX 500 MG CAP 1 po TID x 10 days CEPHALEXIN 52276313299 No Longer Active Vishal Hui MD Active SAPHRIS 5 MG SUBL 1 po bid ASENAPINE MALEATE 97684756969 No Longer Active Luigi Martínez APRN Active LATUDA 80 MG TABS Take one by mouth daily LURASIDONE HCL 53091048016 No Longer Active Jillina Fralebron NORIEGA Active AMLODIPINE BESYLATE 5 MG TABS 1 tablet by mouth daily AMLODIPINE BESYLATE 47218665883 No Longer Active Jillina Fralebron GRIEVANCE AND APPEALS COORDINATOR Active AMITRIPTYLINE HCL 100 MG TAB one at hs AMITRIPTYLINE HCL 35469804659 No Longer Active Vishal Hui MD Active TRAZODONE HCL 100 MG TAB take 1 at bedtime TRAZODONE HCL 65815423549 No Longer Active Vishal Hui MD Active VYVANSE 40 MG CAPS 1 daily, LISDEXAMFETAMINE DIMESYLATE 75773767403 No Longer Active Vishal Hui MD Active IBUPROFEN 600 MG TAB 1 po TID PRN IBUPROFEN 20268792775 No Longer Active Vishla Hui MD Active PROZAC 20 MG CAP Take one by mouth daily FLUOXETINE HCL 78839650277 No Longer Active Vishal Hui MD Active BACTRIM DS 800-160 MG TABS 1 pill by mouth twice daily SULFAMETHOXAZOLE-TRIMETHOPRIM 66533306151 No Longer Active Sahara Rodriguez MD PhD Active DIFLUCAN 150 MG TAB 1 tablet by mouth daily FLUCONAZOLE 86248458452 No Longer Active Vishal Hui MD Active TIZANIDINE HCL 4 MG TABS 1 po q6hr PRN Muscle Spasm/Back Pain TIZANIDINE HCL 23020864855 Active TAMARA Casey Active CLINDAMYCIN HCL 150 MG CAPS 1 four times a day CLINDAMYCIN HCL 72168743617 No Longer Active Neeraj Collins MD Active KEFLEX 500 MG ORAL CAPS 1 cap QID by mouth CEPHALEXIN 35853187096 No Longer Active Neeraj Collins MD Active DIFLUCAN 150 MG TABS 1 pill every other day x 2 doses FLUCONAZOLE 31460568048 No Longer Active Sahara Rodriguez MD PhD Active MELATONIN 3 MG CAPS 2 po q hs MELATONIN 05602085700 No Longer Active Sahara Rodriguez MD PhD Active MULTIVITAMINS CAPS Take one by mouth daily MULTIPLE VITAMIN 73850834812 No Longer Active Sahara Rodriguez MD PhD Active BACTRIM DS 800-160 MG TAB 1 tab by mouth twice daily TRIMETHOPRIM-SULFAMETHOXAZOLE 58471847714 No Longer Active Sahara Rodriguez MD PhD Active [facility] PROBIOTIC ORAL CHEW 2 daily po PROBIOTIC PRODUCT 94032849180 No Longer Active Sahara Rodriguez MD PhD Active BACTRIM DS 800-160 MG TABS 1 po BID x 7 days SULFAMETHOXAZOLE-TRIMETHOPRIM 97640660154 No Longer Active Vishal Hui MD Active CHANTIX STARTING MONTH EARNEST 0.5 MG X 11 & 1 MG X 42 TABS 0.5mg daily for 3 days , then 0.5mg BID for 4 days, then 1mg BID VARENICLINE TARTRATE 64806098621 No Longer Active TAMARA Gray Active VERAPAMIL HCL CR 120 MG TAB CR 1 po bid VERAPAMIL HCL 28258048861 No Longer Active Vishal Hui MD Active METOPROLOL SUCCINATE 50 MG TB24 1 tablet by mouth daily METOPROLOL SUCCINATE 49184174339 No Longer Active Vishal Hui MD Active SAPHRIS 10 MG SUBL 1 tab po bid ASENAPINE MALEATE 63701547577 No Longer Active Vishal Hui MD Active LISINOPRIL 20 MG TABS 1 tab po qd LISINOPRIL 23610963750 No Longer Active Vishal Hui MD Active LATUDA 20 MG TABS Take one by mouth daily LURASIDONE HCL 65325727738 No Longer Active Vishal Hui MD Active TRAZODONE HCL 50 MG TABS 1/2 tab po qd prn for anxiety TRAZODONE HCL 46972250221 No Longer Active Vishal Hui MD Active OMEPRAZOLE 20 MG TBEC 1 po q a.m. 30min prior to first food intake OMEPRAZOLE 90621057683 Active TAMARA Casey Active RANITIDINE HCL 150 MG CAPS 1 twice a day RANITIDINE HCL 80099402836 Active Lynda Xiao LPN Active LINZESS 290 MCG CAPS Take one by mouth daily LINACLOTIDE 47644011221 No Longer Active Vishal Hui MD Active SAPHRIS 5 MG SUBL 1 tab po qd ASENAPINE MALEATE 16682245590 No Longer Active Vishal Hui MD Active ZALEPLON 10 MG CAPS 1 cap po every other night ZALEPLON 85077422391 No Longer Active Vishal Hui MD Active LYRICA 50 MG CAPS 1 tab po TID PREGABALIN 65291374782 No Longer Active Vishal Hui MD Active LORATADINE 10 MG TABS 1 tab po qd LORATADINE 99388055371 No Longer Active Vishal Hui MD Active VERAPAMIL HCL ER 180 MG CR-TABS 1 tab po bid VERAPAMIL HCL 69778524169 No Longer Active Vishal Hui MD Active MIRALAX POWD 1 capfull once daily POLYETHYLENE GLYCOL 3350 93340956573 No Longer Active Vishal Hui MD Active PREDNISONE 20 MG TABS 1 tab po qd PREDNISONE 61343869919 No Longer Active Renzo Thornton DO Active LEVOFLOXACIN 500 MG TABS 1 tab po qd LEVOFLOXACIN 77359691623 No Longer Active Renzo Thornton DO Active BUSPIRONE HCL 15 MG TABS 1 tab po TID BUSPIRONE HCL 31828223747 No Longer Active Renzo Thornton DO Active BENZTROPINE MESYLATE 1 MG TABS 1 tab po qd BENZTROPINE MESYLATE 22708530009 No Longer Active Renzo Thornton DO Active ATENOLOL 25 MG TABS 1 tab po qd ATENOLOL 84063795030 No Longer Active Renzo Thornton DO Active ESCITALOPRAM OXALATE 20 MG TABS 1 tab po qd ESCITALOPRAM OXALATE 89223183700 No Longer Active Renzo Thornton DO Active ADVAIR DISKUS 250-50 MCG/DOSE AEPB 1 puff BID FLUTICASONE-SALMETEROL 51945294483 No Longer Active Renzo Thornton DO Active PREDNISONE 20 MG TAB 2 tabs daily for 3 days, 1 tab daily for 3 days, 1/2 tab daily for 2 days PREDNISONE 04900986489 No Longer Active Vishla Hui MD Active CEFDINIR 300 MG CAPS by mouth twice a day CEFDINIR 79829606296 No Longer Active Vishal Hui MD Active LANSOPRAZOLE 30 MG CPDR 1 cap po qd LANSOPRAZOLE 60439669579 No Longer Active Vishal Hui MD Active BACLOFEN 20 MG TABS 1 tab po tid BACLOFEN 73291084547 No Longer Active Vishal Hui MD Active ADVAIR DISKUS 250-50 MCG/DOSE AEPB 1 puff BID ADVAIR DISKUS 250-50 MCG/DOSE AEPB FLUTICASONE-SALMETEROL Inactive ESCITALOPRAM OXALATE 20 MG TABS 1 tab po qd ESCITALOPRAM OXALATE 20 MG TABS 966253 ESCITALOPRAM OXALATE Inactive ATENOLOL 25 MG TABS 1 tab po qd ATENOLOL 25 MG TABS 207008 ATENOLOL Inactive BENZTROPINE MESYLATE 1 MG TABS 1 tab po qd BENZTROPINE MESYLATE 1 MG TABS 134694 BENZTROPINE MESYLATE Inactive BUSPIRONE HCL 15 MG TABS 1 tab po TID BUSPIRONE HCL 15 MG TABS 330927 BUSPIRONE HCL Inactive LEVOFLOXACIN 500 MG TABS 1 tab po qd LEVOFLOXACIN 500 MG TABS 095249 LEVOFLOXACIN Inactive PREDNISONE 20 MG TABS 1 tab po qd PREDNISONE 20 MG TABS 098519 PREDNISONE Inactive MIRALAX POWD 1 capfull once daily MIRALAX POWD 058274 POLYETHYLENE GLYCOL 3350 Inactive VERAPAMIL HCL ER 180 MG CR-TABS 1 tab po bid VERAPAMIL HCL ER 180 MG CR-TABS VERAPAMIL HCL Inactive LORATADINE 10 MG TABS 1 tab po qd LORATADINE 10 MG TABS 113247 LORATADINE Inactive LYRICA 50 MG CAPS 1 tab po TID LYRICA 50 MG CAPS PREGABALIN Inactive ZALEPLON 10 MG CAPS 1 cap po every other night ZALEPLON 10 MG CAPS 765881 ZALEPLON Inactive SAPHRIS 5 MG SUBL 1 tab po qd SAPHRIS 5 MG SUBL ASENAPINE MALEATE Inactive TRAZODONE HCL 50 MG TABS 1/2 tab po qd prn for anxiety TRAZODONE HCL 50 MG TABS 142135 TRAZODONE HCL Inactive LATUDA 20 MG TABS Take one by mouth daily LATUDA 20 MG TABS LURASIDONE HCL Inactive LISINOPRIL 20 MG TABS 1 tab po qd LISINOPRIL 20 MG TABS 245899 LISINOPRIL Inactive SAPHRIS 10 MG SUBL 1 [...] twice daily BACTRIM DS 800-160 MG TAB 564754 TRIMETHOPRIM-SULFAMETHOXAZOLE Inactive MULTIVITAMINS CAPS Take one by mouth daily MULTIVITAMINS CAPS MULTIPLE VITAMIN Inactive MELATONIN 3 MG CAPS 2 po q hs MELATONIN 3 MG CAPS 19950526 MELATONIN Inactive KEFLEX 500 MG ORAL CAPS 1 cap QID by mouth KEFLEX 500 MG ORAL CAPS 677930 CEPHALEXIN Inactive CLINDAMYCIN HCL 150 MG CAPS 1 four times a day CLINDAMYCIN HCL 150 MG CAPS 960290 CLINDAMYCIN HCL Inactive DIFLUCAN 150 MG TAB 1 tablet by mouth daily DIFLUCAN 150 MG TAB 501865 FLUCONAZOLE Inactive PROZAC 20 MG CAP Take one by mouth daily PROZAC 20 MG CAP 134109 FLUOXETINE HCL Inactive IBUPROFEN 600 MG TAB 1 po TID PRN IBUPROFEN 600 MG TAB 777979 IBUPROFEN Inactive VYVANSE 40 MG CAPS 1 daily, VYVANSE 40 MG CAPS LISDEXAMFETAMINE DIMESYLATE Inactive TRAZODONE HCL 100 MG TAB take 1 at bedtime TRAZODONE HCL 100 MG TAB 894235 TRAZODONE HCL Inactive AMITRIPTYLINE HCL 100 MG TAB one at hs AMITRIPTYLINE HCL 100 MG TAB 039811 AMITRIPTYLINE HCL Inactive AMLODIPINE BESYLATE 5 MG TABS 1 tablet by mouth daily AMLODIPINE BESYLATE 5 MG TABS 511396 AMLODIPINE BESYLATE Inactive LATUDA 80 MG TABS Take one by mouth daily LATUDA 80 MG TABS LURASIDONE HCL Inactive SAPHRIS 5 MG SUBL 1 po bid SAPHRIS 5 MG SUBL ASENAPINE MALEATE Inactive PREDNISONE 20 MG TAB 2 tabs daily for 4 days, 1 tab daily for 4 days, 1/2 tab daily for 4 days PREDNISONE 20 MG TAB 305768 PREDNISONE Inactive AMBIEN 5 MG ORAL TABS 1 tab at bedtime AMBIEN 5 MG ORAL TABS 000571 ZOLPIDEM TARTRATE Inactive PROZAC 20 MG ORAL CAPS 1 tab daily PROZAC 20 MG ORAL CAPS 387928 FLUOXETINE HCL Inactive ABILIFY 15 MG ORAL TABS 1 tab daily ABILIFY 15 MG ORAL TABS 046037 ARIPIPRAZOLE Inactive METOPROLOL TARTRATE 50 MG TAB 1 po bid METOPROLOL TARTRATE 50 MG TAB 875757 METOPROLOL TARTRATE Inactive TRAMADOL HCL 50 MG TABS 1-2 po TID PRN Pain TRAMADOL HCL 50 MG TABS 904033 TRAMADOL HCL Inactive PIROXICAM 20 MG CAPS 1 cap po qd PRN Pain PIROXICAM 20 MG CAPS 608847 PIROXICAM Inactive MINIPRESS 2 MG CAPS 4 cap po at night MINIPRESS 2 MG CAPS 113607 PRAZOSIN HCL Inactive MIRALAX PACK 1 po qd PRN Constipation MIRALAX PACK 274755 POLYETHYLENE GLYCOL 3350 Inactive METOPROLOL TARTRATE 25 MG ORAL TABS 1/2 tablet twice daily for heart rate and blood pressure METOPROLOL TARTRATE 25 MG ORAL TABS 309914 METOPROLOL TARTRATE Inactive VALIUM 5 MG TAB Take 1-2 tablets daily VALIUM 5 MG TAB 005033 DIAZEPAM Inactive FLAGYL 500 MG TAB 1 tablet by mouth bid FLAGYL 500 MG TAB 334452 METRONIDAZOLE Inactive DICLOFENAC POTASSIUM TABS Take 1 tablet twice a day (pt. is not sure of the dose.) DICLOFENAC POTASSIUM TABS DICLOFENAC POTASSIUM TABS Inactive ZITHROMAX Z-EARNEST 250 MG TABS 2 today and then 1 daily for 4 days ZITHROMAX Z-EARNEST 250 MG TABS 9002548 AZITHROMYCIN Inactive PREDNISONE 20 MG TABS 2 daily for 5 days then 1 daily for 5 days PREDNISONE 20 MG TABS 555304 PREDNISONE Inactive PROAIR HFA 108 (90 BASE) MCG/ACT AERS 2 puffs four times a day as needed 2015 PROAIR HFA 108 (90 BASE) MCG/ACT AERS ALBUTEROL SULFATE Inactive HYDROCODONE-ACETAMINOPHEN 5-325 MG TABS 1 to 2 four times a day as needed for pain use until can be seen by specialist HYDROCODONE- ACETAMINOPHEN 5-325 MG TABS 399072 HYDROCODONE-ACETAMINOPHEN Inactive TESSALON PERLES 100 MG CAP 1 to 2 tablets by mouth 3 times daily as needed for cough TESSALON PERLES 100 MG CAP 353940 BENZONATATE Inactive CHANTIX STARTING MONTH EARNEST 0.5 [...] Pain 2015 DICLOFENAC SODIUM 50 MG TBEC 462532 DICLOFENAC SODIUM Inactive TOPAMAX 50 MG ORAL TABS 1 tab twice daily TOPAMAX 50 MG ORAL TABS 883444 TOPIRAMATE Inactive VIIBRYD 10 MG ORAL TABS Take 1 tablet once a day VIIBRYD 10 MG ORAL TABS VILAZODONE HCL Inactive LEVOFLOXACIN 500 MG ORAL TABS po daily LEVOFLOXACIN 500 MG ORAL TABS 755443 LEVOFLOXACIN Inactive METHYLPREDNISOLONE 4 MG ORAL TABS po daily METHYLPREDNISOLONE 4 MG ORAL TABS 746357 METHYLPREDNISOLONE Inactive OXYCODONE HCL ER 10 MG ORAL T12A 1/2 tab by mouth every 4 hours prn OXYCODONE HCL ER 10 MG ORAL T12A OXYCODONE HCL Inactive FLAGYL 500 MG TAB 1 tablet by mouth bid FLAGYL 500 MG TAB 470135 METRONIDAZOLE Inactive MONISTAT 7 COMBO PACK WOODROW 100 & 2 MG-% (9GM) VAG KIT 1 applicatorful per vagina q pm x 7 MONISTAT 7 COMBO PACK WOODROW 100 & 2 MG-% (9GM) VAG KIT MICONAZOLE NITRATE Inactive BACTRIM DS 800-160 MG TABS 1 twice a day BACTRIM DS 800-160 MG TABS 169879 SULFAMETHOXAZOLE-TRIMETHOPRIM Inactive TRAMADOL HCL 50 MG TABS 1/2-1 tab TID PRN TRAMADOL HCL 50 MG TABS 712167 TRAMADOL HCL Inactive ABILIFY MAINTENA 400 MG IM SUSR 400mg injection every 26 days ABILIFY MAINTENA 400 MG IM SUSR ARIPIPRAZOLE Inactive KLONOPIN 1 MG ORAL TABS 1 tab po TID KLONOPIN 1 MG ORAL TABS 500959 CLONAZEPAM Inactive ADVAIR DISKUS 250-50 MCG/DOSE INH AEPB 1 puff twice a day for asthma ADVAIR DISKUS 250-50 MCG/DOSE INH AEPB FLUTICASONE- SALMETEROL Inactive BENADRYL 25 MG CAP 4 po at bedtime for insomnia BENADRYL 25 MG CAP DIPHENHYDRAMINE HCL Inactive PREDNISONE 20 MG TABS 2 daily for 5 days then 1 daily for 5 days PREDNISONE 20 MG TABS 416098 PREDNISONE Inactive HYDROCODONE-ACETAMINOPHEN 5-325 MG ORAL TABS 1 tab two times a day HYDROCODONE-ACETAMINOPHEN 5-325 MG ORAL TABS [id number] HYDROCODONE-ACETAMINOPHEN Inactive ZITHROMAX Z-EARNEST 250 MG TABS 2 today and then 1 daily for 4 days ZITHROMAX Z-EARNEST 250 MG TABS [id number] AZITHROMYCIN Inactive GUAIFENESIN-CODEINE 100-10 MG/5ML SYRP 5ml every 4 to 6 hours as needed for cough GUAIFENESIN-CODEINE 100-10 MG/5ML SYRP [id number] GUAIFENESIN-CODEINE Inactive HALOPERIDOL 10 MG ORAL TABS 1 tab q.d HALOPERIDOL 10 MG ORAL TABS [id number] HALOPERIDOL Inactive ASPIRIN 325 MG ORAL TABS 1 tab q.d ASPIRIN 325 MG ORAL TABS [id number] ASPIRIN Inactive FLUTICASONE PROPIONATE 50 MCG/ACT SUSP 2 sprays each nostril daily before bed. FLUTICASONE PROPIONATE 50 MCG/ACT SUSP [id number] FLUTICASONE PROPIONATE Inactive ZOFRAN 4 MG TABS 1 po q6hr PRN Nausea ZOFRAN 4 MG TABS 364035 ONDANSETRON HCL Inactive KEFLEX 500 MG CAP 1 po qid KEFLEX 500 MG CAP 623839 CEPHALEXIN Inactive ACETAMINOPHEN-CODEINE 120-12 MG/5ML SOLN 5 ml by mouth every 4-6 hours if needed for cough ACETAMINOPHEN-CODEINE 120-12 MG/5ML SOLN 818259 ACETAMINOPHEN-CODEINE Inactive PREDNISONE 20 MG TAB 1 tablet daily x 4 days PREDNISONE 20 MG TAB 075629 PREDNISONE Inactive TROPICAMIDE 0.5 % OPHTH SOLN 1 drop PRN eye spasms TROPICAMIDE 0.5 % OPHTH SOLN 500522 TROPICAMIDE Inactive LEVAQUIN 500 MG TABS 1 daily for infection LEVAQUIN 500 MG TABS 928410 LEVOFLOXACIN Inactive PREDNISONE 10 MG TABS 2 daily for 5 days then 1 daily for 5 days PREDNISONE 10 MG TABS 585326 PREDNISONE Inactive EQ NICOTINE 21 MG/24HR TRANS [...] for cough TESSALON PERLES 100 MG CAPS 881063 BENZONATATE Inactive AMITIZA 8 MCG ORAL CAPS 1 tab BID AMITIZA 8 MCG ORAL CAPS LUBIPROSTONE Inactive LINZESS 290 MCG ORAL CAPS 1 tab 30 min prior to first meal each day. LINZESS 290 MCG ORAL CAPS LINACLOTIDE Inactive DIFLUCAN 150 MG TABS 1 by mouth for yeast DIFLUCAN 150 MG TABS 667099 FLUCONAZOLE Inactive BACTRIM DS 800-160 MG TABS 1 twice a day BACTRIM DS 800-160 MG TABS 19820521 SULFAMETHOXAZOLE-TRIMETHOPRIM Inactive MUPIROCIN 2 % OINT apply twice a day MUPIROCIN 2 % OINT 201431 MUPIROCIN Inactive BACTRIM DS 800-160 MG TAB Take one (1) tablet by mouth twice a day for 5 days BACTRIM DS 800-160 MG TAB 19820521 TRIMETHOPRIM- SULFAMETHOXAZOLE Inactive LACTULOSE 10 GM/15ML ORAL SOLN 30mL oral BID for IBS-C LACTULOSE 10 GM/15ML ORAL SOLN 638645 LACTULOSE Inactive MIRALAX ORAL POWD 17GMS DAILY IN WATER MIRALAX ORAL POWD 070880 POLYETHYLENE GLYCOL 3350 Inactive BACTRIM DS 800-160 MG TABS 1 twice a day BACTRIM DS 800-160 MG TABS 19820521 SULFAMETHOXAZOLE-TRIMETHOPRIM Inactive NYSTATIN 520579 UNIT/GM CREA apply three times a day to yeast rash NYSTATIN 195557 UNIT/GM CREA 863251 NYSTATIN Inactive CEFDINIR 300 MG CAPS by mouth twice a day CEFDINIR 300 MG CAPS 652413 CEFDINIR Inactive PREDNISONE 20 MG TAB 2 tabs daily for 3 days, 1 tab daily for 3 days, 1/2 tab daily for 2 days PREDNISONE 20 MG TAB 946358 PREDNISONE Inactive BACTRIM DS 800-160 MG TABS 1 po BID x 7 days BACTRIM DS 800-160 MG TABS 19820521 SULFAMETHOXAZOLE-TRIMETHOPRIM Inactive DIFLUCAN 150 MG TABS 1 pill every other day x 2 doses DIFLUCAN 150 MG TABS 745482 FLUCONAZOLE Inactive BACTRIM DS 800-160 MG TABS 1 pill by mouth twice daily BACTRIM DS 800-160 MG TABS 19820521 SULFAMETHOXAZOLE-TRIMETHOPRIM Inactive KEFLEX 500 MG CAP 1 po TID x 10 days KEFLEX 500 MG CAP 529667 CEPHALEXIN Inactive Advance Directives Directive Description Start [...] % 11.0-15.0 platelet count 443 THOUSAND/UL 10*3/mm3 226-774 1830/03/01 mean platelet volume 8.2 fL 7.5-12.5 leukocyte [...] % 11.0-15.0 platelet count 349 THOUSAND/UL 10*3/mm3 690-639 0585/04/12 mean platelet volume 8.4 fL 7.5-12.5 Lab Report: CBC W/DIFF, Comp. Metabolic Panel, HGBA1C, Magnesium - Chemistry sodium, serum 141 mmol/L 534-251 4960/07/24 carbon dioxide, venous blood 27.8 mmol/L 21.0-32.0 [...] 369 10^3/MM^3 10*3/mm3 142-424 Lab Report: Chlamydia/GC APTIMA/95397 - Lab chlamydia DNA probe NOT DETECTED NOT DETECTED Lab Report: Chlamydia/GC APTIMA/26818 - Microbiology Neisseria gonorrhoeae DNA probe NOT DETECTED NOT DETECTED Lab Report: Chlamydia/GC APTIMA/83362, Urinalysis, Complete, with Reflex ... - Lab chlamydia DNA probe NOT DETECTED NOT DETECTED Lab Report: Chlamydia/GC APTIMA/61149, Urinalysis, Complete, with Reflex ... - Microbiology Neisseria gonorrhoeae DNA probe NOT DETECTED NOT DETECTED Lab Report: Chlamydia/GC APTIMA/13983, Urinalysis, Complete, with Reflex ... - Urinalysis microalbumin/total urine volume 2 mg/L Units converted. See lab report for original value. microalbumin/creatinine ratio, urine 9 MCG/MG CREAT mg/L <30 Lab Report: Comp. Metabolic Panel - Chemistry sodium, serum 140 mmol/L 155-024 8893/06/28 carbon dioxide, venous blood 23.8 mmol/L 21.0-32.0 [...] negative Encounters Code Encounter Date Provider Facility CPT-66495 Level 5 Est. Patient 12:01:37 CDT Maude Miranda [facility] CPT-95924 Level 3 Est. [facility] 11:36:47 [facility] Level 3 Est. Patient 10:53:17 CD[facility] CPT-97386 Level 3 Est. Patient 11:08:35 CDT Suzan [facility] CPT-47460 Level 3 Est. Patient 15:55:20 CDT Suzan [facility] CPT-72779 Level 4 Est. Patient 10:49:34 CDT Suzan [facility] CPT-45394 Level 3 Est. Patient 10:00:25 CDT Suzan Boo [facility] CPT-98712 Level 3 Est. Patient 10:29:30 CDT Suzan Boo [facility] CPT-29332 Level 3 Est. Patient 11:04:38 CDT Renzo [facility] CPT-47157 Level 3 Est. Patient 11:15:58 CONTRACTS ADVISOR Renzo Jenn [facility] CPT-37563 Level 3 Est. Patient 15:28:23 CONTRACTS ADVISOR Suzan Boo [facility] CPT-14606 Level 4 Est. Patient 10:20:54 CONTRACTS ADVISOR Suzan Boo [facility] CPT-13320 Level 3 Est. Patient 11:47:37 CONTRACTS ADVISOR Ahmet Carbajal MD [facility] CPT-54459 Level 3 Est. Patient 10:40:11 CONTRACTS ADVISOR Ahmet Carbajal MD [facility] CPT-50792 Level 3 Est. Patient 15:07:06 CONTRACTS ADVISOR Neeraj Collins MD [facility] CPT-58225 Level 4 Est. Patient 14:45:00 CONTRACTS ADVISOR Ahmet Carbajal MD [facility] CPT-97391 Level 3 Est. Patient 13:59:59 CDT Luigi Martínez [facility] CPT-59475 Level 3 Est. Patient 18:18:53 CDT Neeraj Collins MD [facility] CPT-53647 Level 3 Est. Patient 15:50:44 CDT Vishal Hui MD [facility] CPT-90256 Level 3 Est. Patient 11:36:17 CDT Ahmet Carbajal MD [facility] CPT-40221 Level 3 Est. Patient 13:29:16 CDT Vishal Hui MD [facility] CPT-32329 Level 3 Est. Patient 14:27:52 CDT Neeraj Collins MD [facility] CPT-51770 Level 3 Est. Patient 08:56:03 CDT Pacomarnijanee Lopezephraim [facility] CPT-83896 Level 4 Est. Patient 12:11:48 CDT Fabiolaniall Johnson [facility] CPT-92206 Level 3 New Patient 16:53:37 CDT Albert Caldera MD [facility] CPT-75811 Level 3 Est. Patient 11:25:49 CDT Renzo Thornton DO [facility] CPT-41992 Level 3 Est. Patient 15:22:01 CDT Ahmet Carbajal MD [facility] CPT-49762 Level 4 Est. Patient 09:00:51 CONTRACTS ADVISOR Vishal Hui MD [facility] CPT-17517 Level 3 Est. Patient 11:37:33 CONTRACTS ADVISOR Vishal Hui MD [facility] CPT-12420 Level 3 Est. Patient 08:41:09 CONTRACTS ADVISOR Vishal Hui MD [facility] CPT-37246 Level 4 Est. Patient 10:19:35 CONTRACTS ADVISOR Vishal Hui MD [facility] CPT-93183 Level 3 Est. Patient 13:35:45 CDT Vishal Hui MD [facility] CPT-69807 Level 4 Est. Patient 10:08:37 CDT Vishal Hui MD [facility] CPT-96631 Level 3 Est. Patient 11:22:10 CDT Vishal Hui MD [facility] CPT-73461 Level 3 Est. Patient 11:03:32 CDT Sahara Rodriguez MD PhD [facility] CPT-23554 Level 3 Est. Patient 09:41:35 CDT Vishal Hui MD [facility] CPT-40224 Level 3 Est. Patient 12:00:41 CDT Neeraj Collins MD [facility] CPT-12577 Level 3 Est. Patient 09:16:24 CDT Vishal Hui MD [facility] CPT-53093 Level 4 Est. Patient 13:59:09 CDT Neeraj Collins MD [facility] CPT-79735 Level 3 Est. Patient 15:19:43 CDT Renzo Thornton [facility] CPT-19739 Level 3 Est. Patient 18:10:26 CDT Sahara Rodriguez MD [facility] CPT-35886 Level 3 Est. Patient 14:49:50 CDT Vishal Hui MD [facility] CPT-91653 Level 4 Est. Patient 18:41:46 CDT Neeraj Collins MD [facility] CPT-62792 Level 4 Est. Patient 09:18:38 CONTRACTS ADVISOR Vishal Hui MD [facility] CPT-19247 Level 3 Est. Patient 14:43:55 CONTRACTS ADVISOR Vishal Hui MD [facility] CPT-24715 Level 3 Est. Patient 15:26:33 CONTRACTS ADVISOR Sahara Rodriguez MD [facility] CPT-40307 Level 3 Est. Patient 10:32:14 CONTRACTS ADVISOR Vishal Hui MD [facility] CPT-45870 Level 3 Est. Patient 15:12:52 CONTRACTS ADVISOR Vishal Hui MD [facility] CPT-79980 Level 4 Est. Patient 09:19:27 CDT Vishal Hui MD [facility] CPT-64898 Level 3 Est. Patient 15:53:00 CDT Renzo Thornton DO [facility] CPT-03823 Level 3 Est. Patient 15:50:30 CDT Renzo Thornton [facility] CPT-03924 Level 3 Est. Patient 16:55:24 CDT Vishal Hui MD [facility] Procedures Code Procedure Name Date Entry Date Standard Description CPT-62618 UA Dip Auto (Floor Use Only) 11:36:47 CDT CPT-72567 Venipuncture Draw Fee 10:53:17 CDT CPT-52461 EKG Trac and Interp - XRAY USE ONLY 15:59:30 CDT 09/13 CPT-63400 Chest 1V Frontal - XRAY USE ONLY 15:59:30 CDT CPT-40280 Venipuncture Draw Fee 15:44:02 CDT CPT-31274 Venipuncture Draw Fee 08:41:12 CDT CPT-83284 Abd compl w upright - XRAY USE ONLY 10:27:59 CDT 06/28 CPT-09588 Smoking Cessation counseling 11:15:58 CONTRACTS ADVISOR CPT-G0439 Subsequent Annual Wellness Exam 09:30:58 CONTRACTS ADVISOR CPT-93092 TSH - LAB USE ONLY 08:50:26 CONTRACTS ADVISOR CPT-91138 CBC - LAB USE ONLY 08:50:26 CONTRACTS ADVISOR CPT-09327 Venipuncture Draw Fee 08:50:26 CONTRACTS ADVISOR CPT-88915 Abx/Therapy Injection 17:34:30 CONTRACTS ADVISOR CPT-74589 Nexplanon Removal with Reinsertion 14:09:32 CDT CPT-J7307 Nexplanon (Implant) 14:09:32 CDT CPT-OV Office Visit 14:09:32 CDT CPT-87445 UA w micro - LAB USE ONLY 16:21:13 CDT CPT-19908 Wet Mount - LAB USE ONLY 16:21:13 CDT CPT-96646 First Vx - Ix admin for Medicare patients 14:37:47 CDT CPT-04291 Fluzone Preservative Free Intramuscular Suspension 14:37 :47 CDT CPT-43782 Abx/Therapy Injection 13:54:22 CDT CPT-20978 Abx/Therapy Injection 08:47:09 CDT CPT-57445 Abx/Therapy Injection 13:29:56 CDT CPT-65700 Abx/Therapy Injection 08:36:16 CDT CPT-12201 Wet Mount - LAB USE ONLY 17:44:58 CDT CPT-20968 UA w micro - LAB USE ONLY 17:44:58 CDT CPT-56449 CMP - LAB USE ONLY 17:44:58 CDT CPT-36359 Venipuncture Draw Fee 17:44:58 CDT CPT-56633 Cervical Min 4V - XRAY USE ONLY 09:01:40 CDT CPT-11779 Chest 2V Frontal and Lat - XRAY USE ONLY 11:06:31 CDT CPT-04635 EKG Trac and Interp - XRAY USE ONLY 11:31:43 CDT 08/26 CPT-J3420 Vitamin B12 1000mcg (Cyanocobalamin) 08:10:26 CONTRACTS ADVISOR 04/12 CPT-45468 Abx/Therapy Injection 08:10:26 CONTRACTS ADVISOR CPT-G0438 Initial Annual Wellness Exam 19:01:01 CONTRACTS ADVISOR CPT-J3420 Vitamin B12 1000mcg (Cyanocobalamin) 16:57:46 CDT 08/14 CPT-59331 Recombivax HB Injection Suspension 5 MCG/0.5ML 08:37:50 CONTRACTS ADVISOR CPT-31259 Immunization Single Admin 08:37:50 CONTRACTS ADVISOR CPT-J3420 Vitamin B12 1000mcg (Cyanocobalamin) 08:32:16 CONTRACTS ADVISOR 03/11 CPT-42142 Abx/Therapy Injection 08:32:16 CONTRACTS ADVISOR CPT-93617 Chest 2V Frontal and Lat 11:46:38 CONTRACTS ADVISOR CPT-52402 Venipuncture Draw Fee 09:12:45 CONTRACTS ADVISOR CPT-J3420 Vitamin B12 1000mcg (Cyanocobalamin) 08:50:15 CONTRACTS ADVISOR 02/08 CPT-25594 Abx/Therapy Injection 08:50:15 CONTRACTS ADVISOR CPT-Cryo Cryotherapy 10:19:35 CONTRACTS ADVISOR CPT-000 Give Appropriate Flu Vaccine 09:22:16 CDT CPT-J3420 Vitamin B12 1000mcg (Cyanocobalamin) 19:08:57 CDT 01/11 CPT-25719 Abx/Therapy Injection 19:08:57 CDT CPT-J3420 Vitamin B12 1000mcg (Cyanocobalamin) 08:19:08 CDT 12/11 CPT-47454 Abx/Therapy Injection 08:19:08 CDT CPT-J3420 Vitamin B12 1000mcg (Cyanocobalamin) 14:48:00 CDT 11/09 CPT-58541 Abx/Therapy Injection 14:47:59 CDT CPT-J3420 Vitamin B12 1000mcg (Cyanocobalamin) 08:34:04 CDT 10/09 CPT-45756 Abx/Therapy Injection 08:34:04 CDT CPT-J3420 Vitamin B12 1000mcg (Cyanocobalamin) 09:18:52 CDT 09/11 CPT-89380 Abx/Therapy Injection 09:18:52 CDT CPT-J3420 Vitamin B12 1000mcg (Cyanocobalamin) 08:35:44 CDT 09/04 CPT-57015 Abx/Therapy Injection 08:35:44 CDT CPT-11539 Immunization Single Admin 11:07:16 CDT CPT-85691 Hepatitis B adult IM 11:07:16 CDT CPT-J3420 Vitamin B12 1000mcg (Cyanocobalamin) 11:00:49 CDT 08/28 CPT-J1040 Depo Medrol 80 mg (Methyl Prednisolone Acetate) 11:00: 49 CDT CPT-54181 Abx/Therapy Injection 11:00:49 CDT CPT-J1040 Depo Medrol 80 mg (Methyl Prednisolone Acetate) 09:16: 23 CDT CPT-J3420 Vitamin B12 1000mcg (Cyanocobalamin) 08:27:05 CDT 08/20 CPT-90346 Abx/Therapy Injection 08:27:05 CDT CPT-73593 Recombivax HB Injection Suspension 5 MCG/0.5ML 10:00:41 CDT CPT-72010 Administration single or combination vaccine inc oral 10 :00:41 CDT CPT-39697 Sono transvag pelvis non OB uterus ovaries cervix 16:36: 57 CDT CPT-85781 LS spine comp w obliq 09:50:55 CONTRACTS ADVISOR CPT-98053 Abd compl w upright 09:50:55 CONTRACTS ADVISOR CPT-J1100 Decadron 4mg (Dexamethasone) 15:51:24 CONTRACTS ADVISOR CPT-J1030 Depo Medrol 40 mg (Methyl Prednisolone Acetate) 15:51: 24 CONTRACTS ADVISOR CPT-01195 Abx/Therapy Injection 15:51:24 CONTRACTS ADVISOR CPT-J1100 Decadron 4mg (Dexamethasone) 15:26:33 CONTRACTS ADVISOR CPT-J1030 Depo Medrol 40 mg (Methyl Prednisolone Acetate) 15:26: 33 CONTRACTS ADVISOR CPT-45704 Sono retroperitoneal complete kidneys and bladder 17:15: 30 CDT CPT-45112 Abd compl w upright 16:09:25 CDT CPT-J1100 Decadron 8mg (Dexamethasone) 17:07:57 CDT CPT-05072 Abx/Therapy Injection 17:07:57 CDT CPT-J1100 Decadron 8mg (Dexamethasone) 16:55:24 CDT CPT-55281 Chest 2V Frontal and Lat 16:32:44 CDT
[2016-12-26] MEDS ORDERED: NICO-588 TD (15:01)
== END 2016-11-14 17:37 | disposition home or self-care (01) ==
LOC: EDUNIT# 15:03 → ER 15:04
DX: R00.2 Palpitations (principal); R00.0 Tachycardia, unspecified; R51 Headache; J45.909 Unspecified asthma, uncomplicated; G47.30 Sleep apnea, unspecified; I10 Essential (primary) hypertension; G43.909 Migraine, unspecified, not intractable, without status migrainosus; K21.9 Gastro-esophageal reflux disease without esophagitis; M19.90 Unspecified osteoarthritis, unspecified site; F41.9 Anxiety disorder, unspecified; F31.9 Bipolar disorder, unspecified; F17.210 Nicotine dependence, cigarettes, uncomplicated; Z87.19 Personal history of other diseases of the digestive system; Z79.84 Long term (current) use of oral hypoglycemic drugs; Z98.1 Arthrodesis status; Z90.49 Acquired absence of other specified parts of digestive tract; Z90.89 Acquired absence of other organs
CPT/HCPCS: 36415; 80053; 83735; 84443; 84484; 84703; 85025; 93005; 93041

== ENCOUNTER 2016-12-26 06:27 | Outpatient (CLI) | payer MEDICARE, MEDICAID ==
[~2016-12-26] VITALS: Ht 165.1 cm; Wt 117.9 kg
[2016-12-26] MEDS ORDERED: NCT21TD TD (15:01)
[2016-12-26] MEDS ORDERED: ALBU18HF2 IH (15:01)
[2016-12-26] MEDS ORDERED: PROM25TA14 PO (15:01)
[2016-12-26] MEDS ORDERED: OMEP20CA12 PO (15:01)
[2016-12-26] MEDS ORDERED: METO10TA3 PO (15:01)
[2016-12-26] MEDS ORDERED: ATOM40CA6 PO (15:01)
[2016-12-26] MEDS ORDERED: VERA120T84 PO (15:01)
[2016-12-26] MEDS ORDERED: RIZA10TA37 PO (15:01)
[2016-12-26] MEDS ORDERED: RANI150T11 PO (15:01)
[2016-12-26] MEDS ORDERED: SITA100T12 PO (15:01)
[2016-12-26] MEDS ORDERED: CLON1TAB3 PO (15:01)
[2016-12-26] MEDS ORDERED: FLUT16SP22 NSEACH (15:01)
[2016-12-26] MEDS ORDERED: TOPI25TA10 PO (15:01)
[2016-12-26] MEDS ORDERED: NADO20TA PO (15:01)
[2016-12-26] MEDS ORDERED: FLT11013 IH (15:03)
== END 2016-12-26 15:15 ==
LOC: PREOP 06:27
PROVIDERS: ATTEND Surgery
DX: Z01.818 Encounter for other preprocedural examination (principal); D17.1 Benign lipomatous neoplasm of skin and subcutaneous tissue of trunk

== ENCOUNTER 2016-12-29 06:57 | Day surgery (SDC) | payer MEDICARE, MEDICAID ==
[~2016-12-29] VITALS: Ht 165.1 cm; Wt 117.9 kg
[~2016-12-29 06:57] MED LIST changes: +ALBU18HF2 IH; +ATOM40CA6 PO; +CLON1TAB3 PO; +FLT11013 IH; +FLUT16SP22 NSEACH; +METO10TA3 PO; +NADO20TA PO; +NCT21TD TD; +OMEP20CA12 PO; +PROM25TA14 PO; +RANI150T11 PO; +RIZA10TA37 PO; +SITA100T12 PO; +TOPI25TA10 PO; +VERA120T84 PO
--- OUTSIDE RECORDS SUMMARY | 2016-12-29 07:04 | XMS REPORT | Encounter Summary ---
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 Role Phone PCP Unavailable Reason for Visit * Reason Comments Medication Refill Encounter Details Date Type Department Care Team Description 12/14/2016 Refill [facility] Emanuel Carrillo MD [facility]algia ( [facility] [address] Dx);Fibromyalgia;Lumbar [address] [place] [address] [place] [address] [place] [address] [phone] Social History Tobacco Use Types Packs/Day Years [...] fileas of this encounter Visit Diagnoses Diagnosis Myalgia - Primary Mylagia and myositis, unspecified Fibromyalgia Mylagia and myositis, unspecified Lumbar radiculopathy Thoracic or lumbosacral neuritis or radiculitis, unspecified in this encounter
--- OUTSIDE RECORDS SUMMARY | 2016-12-29 07:04 | XMS REPORT | Encounter Summary ---
Author Author [facility] Organization [facility] Address Unknown Phone Unavailable Care Team Providers Care Time Study Observer Name Role Phone PCP Unavailable Reason for Visit * Reason Comments Medication Update Encounter Details Date Type Department Care Team Description 11/13/2016 Telephone [facility] Meseret Caballero MBBS Medication Update [facility] Neurology [address] [place] [address] [place] [address] [phone] Social History Tobacco Use Types Packs/Day Years [...] impairment: No 02/03/2016 as of this encounter Miscellaneous Notes * Telephone Encounter - Vi Bridges LPN - 11/14/2016 10:43 AM CDT Nadolol 20mg qHS. Per Dr Anaya. Patient notified voiced understanding and agreeable to the recommendations. SGAAR Lebron * Telephone Encounter - Vi Bridges LPN - 11/13/2016 2:06 PM CDT Notified patient and she states she is already on verapamil SR 180 mg twice daily and it do not help with headaches. Please advise. SAGAR Lebron * Telephone Encounter - Vi Bridges LPN - 11/13/2016 12:37 PM CDT Patient is taking 25 mg nightly. Esvin. SAGAR Lebron * Telephone Encounter - Vi Bridges LPN - 11/13/2016 11:18 AM CDT This is a Dr Caballero patient started on Topamax 11/08/16. Stating she is in severe tingling and burning. Patient states it is excalating neuropathy to a higher level. Tried to educate patient that this is a side effect of this medication but if she can continue medication it is a good medication. Patient says she is aware but the symptoms are bad. Please advise. SAGAR Lebron in this encounter Plan of Treatment Not on fileas of this encounter Visit Diagnoses Not on filein this encounter
--- OUTSIDE RECORDS SUMMARY | 2016-12-29 07:04 | XMS REPORT | Clinical Summary ---
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 If you do not see the information that you expected, contact Release of Information in the Health Information Management department at [phone] for further assistance in locating additional records.[facility] Allergies Active Allergy Reactions Severity Noted Date [...] 01/26/20 Active mg tablet times daily. 16 lamoTRIgine (LAMICTAL) Take 100 mg by mouth [...] by mouth every Active capsule 48 hours. FLOVENT HFA 110 INHALE 2 PUFFS TWICE [...] 1 Active mg tablet bedtime daily. 17 gabapentin (NEURONTIN) TAKE 3 CAPSULES THREE 270 capsule 3 12/15/19 Active 300 mg TIMES DAILY 17 capsuleIndications: Myalgia, Fibromyalgia, Lumbar radiculopathy gabapentin (NEURONTIN) Take 900mg by mouth in 270 Cap 5 05/27/19 Discontin 300 mg AM, 900mg at Noon, and 17 17 ued capsuleIndications: 900mg at bedtime. NEUROPATHIC PAIN Indications: NEUROPATHIC PAIN Active Problems Problem Noted Date HTN (hypertension) 06/25/2015 Depression 06/25/2015 Anxiety 06/25/2015 Nonepileptic episode (HCC) 06/25/2015 Obesity, morbid, BMI 40.0-49.9 (HCC) 06/25/2015 Seizures (HCC) 06/24/2015 Convulsion ([facility]) 06/24/2015 Bilateral low back pain with left-sided sciatica 12/22/2014 Encounters Date Type Specialty Care Team Description 12/14/2016 Refill Anesthesia Pain Emanuel Carrillo MD Myalgia (Primary Dx);Fibromyalgia;Lumbar radiculopathy 11/16/2016 Procedure visit Anesthesia Pain Emanuel Carrillo MD Migraine without status migrainosus, not intractable, unspecified migraine type (Primary Dx);Migraine without aura and without status migrainosus, not intractable 11/13/2016 Telephone Neurology Meseret Caballero MBBS Medication Update 11/08/2016 Office Visit Neurology Meseret Caballero MBBS Chronic migraine without aura without status migrainosus, not intractable (Primary Dx);Chronic daily headache 11/08/2016 Telephone Anesthesia Pain Jennifer Canas RN Appointment 10/30/2016 Ancillary Radiology Outpatient, Radiologist Diagnosis unknown Orders 10/25/2016 Telephone Neurology Meseret Caballero MBBS Pre-Visit Planning (Dr Caballero 11/08/16) from Last 3 Months Family History [...] Vital Sign Reading Time Taken Blood Pressure 121/76 11/16/2016 9:01 AM CDT Pulse 75 11/16/2016 9:01 AM CDT Temperature 36.7 C (98 F) 11/29/2015 9:40 AM CDT Respiratory Rate 18 11/16/2016 9:01 AM CDT Oxygen Saturation 97% 11/16/2016 9:01 AM CDT Inhaled Oxygen - - Concentration Weight 117.9 kg (260 lb) 11/16/2016 9:01 AM CDT Height 162.6 cm (5' 4") 11/16/2016 9:01 AM CDT Body Mass Index 44.63 11/16/2016 9:01 AM CDT Plan of Treatment Health Maintenance Due Date Last Done Comments PHYSICAL (COMPREHENSIVE) 1994 EXAM PERTUSSIS VACCINE 1998 TETANUS VACCINE 2004 CERVICAL CANCER SCREENING 2008 INFLUENZA VACCINE 10/17/2016 Procedures Procedure Name Priority Date/Time Associated Diagnosis Comments [place] CHEMODERVATE Routine 11/16/2016 Migraine without status Results for this FACIAL/TRIGEM/CERV MUSC 9:30 AM CDT migrainosus, not procedure are in the MIGRAINE intractable, unspecified results section. migraine type from Last 3 Months Results * CHEMODENERVATION MUSCLE MIGRAINE (11/16/2016 9:30 AM) Specimen Performing Laboratory OTHER OUTSIDE LAB Narrative Emanuel Carrillo MD 11/16/20169:30 AM PROCEDURE: Botox Injections for Migraine Headache Pre-Procedure Diagnoses: 1. Migraine without status migrainosus, not intractable, unspecified migraine typeCHEMODENERVATION MUSCLE MIGRAINE 2. Migraine without aura and without status migrainosus, not intractablebotulinum toxin A (BOTOX) injection 200 Units Headaches Post-Procedure Diagnoses: Same Physician: Emanuel Carrillo MD INJECTATE: Botulinum Toxin A 5units/0.1mL ANESTHESIA: None COMPLICATIONS: None. DESCRIPTION OF PROCEDURE: The procedure risks, hazards and alternatives were discussed with the patient and a proper consent was obtained. The area over each injection point was prepped with alcohol utilizing sterile technique. A 30-gauge 0.5" needle was placed in the center of each point and injected after a negative aspiration was performed. For the trapezius, a 1" needle was used. The injections were as follows: Rn Building: 5 units each side Procerus: 5 units Frontalis: 10 units each side Temporalis: 20 units each side Occipitalis: 15 units each side Cervical paraspinal: 10 units each side Trapezius: 15 units each side A total of 155u botox were administered. The patient tolerated the procedure well without any apparent difficulties or complications. from Last 3 Months
--- OUTSIDE RECORDS SUMMARY | 2016-12-29 07:04 | XMS REPORT | Encounter Summary ---
Author Author [facility] Organization [facility] Address Unknown Phone Unavailable Care Team Providers Care Php Programmer Name Role Phone PCP Unavailable Reason for Referral * Pain Authorization Status Reason Specialty Diagnoses / Referred By Referred To Procedures Contact Contact New Request Diagnoses Emanuel Carrillo MD Migraine without [address] migrainosus, not [address]ractable, [place], [place] unspecified [address] migraine type Phone: Migraine without [phone] aura and without Fax: status [phone] migrainosus, not intractable P rocedures CHEMODENERVATION MUSCLE MIGRAINE * Pain Authorization Status Reason Specialty Diagnoses / Referred By Referred To Procedures Contact Contact No Auth Needed Anesthesia Pain Diagnoses Emanuel Carrillo MD [facility] Sp[facility] Anesth Migraine without [address] [place] migrainosus, not [address], [place], [place] unspecified [address] migraine type Phone: Phone: P [phone] rocedures Fax: CHEMODENERVATION [phone] MUSCLE MIGRAINE Reason for Visit * Reason Comments Migraine Imm/Inj * Pain Authorization Status Reason Specialty Diagnoses / Referred By Referred To Procedures Contact Contact No Auth Needed Anesthesia Pain Diagnoses Emanuel Carrillo MD Icc Spn Anesth Migraine without [address] [place] migrainosus, not [address], [place], [place] unspecified [address] migraine type Phone: Phone: P [phone] rocedures Fax: CHEMODENERVATION [phone] MUSCLE MIGRAINE Encounter Details Date Type Department Care Team Description 11/16/2016 Procedure visit [facility] Emanuel Carrillo MD Migraine without status [facility] [address] migrainosus, not [address]ractable, [place] [address] [place] [address] migraine type (Primary [phone] Dx);Migraine without aura and without status migrainosus, not intractable Social History Tobacco Use Types Packs/Day Years [...] Pulse 75 11/16/2016 9:01 AM CDT Temperature - - Respiratory Rate 18 11/16/2016 9:01 AM CDT Oxygen Saturation 97% 11/16/2016 9:01 AM CDT Inhaled Oxygen - - Concentration Weight 117.9 kg (260 lb) 11/16/2016 9:01 AM CDT Height 162.6 cm (5' 4") 11/16/2016 9:01 AM CDT Body Mass Index 44.63 11/16/2016 9:01 AM CDT in this encounter Functional Status Functional [...] this encounter Instructions * Patient Instructions - Jennifer Canas RN - 11/16/2016 8:45 AM CDT General Instructions: How to reach me: Please send a Med fusiont message to the [facility] or leave a voicemail for my nurse Jennifer at [phone]. Scheduling: Our scheduling phone number is [phone]. Appointment Reminders on your cell phone: Make sure we have your cell phone number, and Text [facility] to [phone]. How to get a medication refill: Five business days before refill needed, please use the [employer] Refill request or contact your pharmacy directly to request medication refills. How to receive your test results: If you have signed up for [employer], you will receive your test results and messages from me this way. Otherwise, you will get a phone call or letter. If you are expecting results and have not heard from my office within 2 weeks of your testing, please send a [employer] message or call my office. Support for many chronic illnesses is available through [facility] [place]: [employer] or [phone]. For questions on nights, weekends or holidays, call the laminating machine operator helper at , and ask for the doctor production gear cutter for Anesthesia Pain Management. in this encounter Procedure Notes * Emanuel Carrillo MD - 11/16/2016 8:45 AM CDT Associated Order(s): CHEMODENERVATION MUSCLE MIGRAINE Procedure(s): [place] CHEMODERVATE FACIAL/TRIGEM/CERV MUSC MIGRAINE Pre-Procedure Diagnose(s): Migraine without status migrainosus, not intractable , unspecified migraine type Post-Procedure Diagnose(s): Migraine without status migrainosus, not intractable , unspecified migraine type Formatting of this note may be different from the original. PROCEDURE: Botox Injections for Migraine Headache Pre-Procedure Diagnoses: 1. Migraine without status migrainosus, not intractable, unspecified migraine type CHEMODENERVATION MUSCLE MIGRAINE 2. Migraine without aura and without status migrainosus, not intractable botulinum toxin A (BOTOX) injection 200 Units Headaches Post-Procedure Diagnoses: Same Physician: Emanuel Carrillo MD INJECTATE: Botulinum Toxin A 5units/0.1mL ANESTHESIA: None COMPLICATIONS: None. DESCRIPTION OF PROCEDURE: The procedure risks, hazards and alternatives were discussed with the patient and a proper consent was obtained. The area over each injection point was prepped with alcohol utilizing sterile technique. A 30- gauge 0.5" needle was placed in the center of each point and injected after a negative aspiration was performed. For the trapezius, a 1" needle was used. The injections were as follows: Occupational Therapist Aide: 5 units each side Procerus: 5 units Frontalis: 10 units each side Temporalis: 20 units each side Occipitalis: 15 units each side Cervical paraspinal: 10 units each side Trapezius: 15 units each side A total of 155u botox were administered. The patient tolerated the procedure well without any apparent difficulties or complications. in this encounter Miscellaneous Notes * Addendum Note - Emanuel Carrillo MD - 11/16/2016 9:49 AM CDT Addended by: EMANUEL CARRILLO on: 11/16/2016 09:49 AM Modules accepted: Orders in this encounter Plan of Treatment Name Priority Associated Diagnoses Order Schedule CHEMODENERVATION MUSCLE MIGRAINE Routine Migraine without status Expected: 11/16/2016, migrainosus, not Expires: 02/14/2017 intractable, unspecified migraine type Migraine without aura and without status migrainosus, not intractable as of this encounter Procedures Procedure Name Priority Date/Time Associated Diagnosis Comments [place] CHEMODERVATE Routine 11/16/2016 Migraine without status Results for this FACIAL/TRIGEM/CERV MUSC 9:30 AM CDT migrainosus, not procedure are in the MIGRAINE intractable, unspecified results section. migraine type in this encounter Results * CHEMODENERVATION MUSCLE MIGRAINE (11/16/2016 9:30 [...] was used. The injections were as follows: Occupational Therapist Aide: 5 units each side Procerus: 5 units Frontalis: 10 units each side Temporalis: 20 units each side Occipitalis: 15 units each side Cervical paraspinal: 10 units each side Trapezius: 15 units each side A total of 155u botox were administered. The patient tolerated the procedure well without any apparent difficulties or complications. in this encounter Visit Diagnoses Diagnosis Migraine without status migrainosus, not intractable, unspecified migraine type - Primary Migraine without aura and without status migrainosus, not intractable Migraine without aura, without mention of intractable migraine without mention of status migrainosus in this encounter Administered Medications Medication Order MAR Action Action Date Dose Rate Site botulinum toxin A (BOTOX) injection 200 Given 11/16/2016 155 Units Face Units 10:15 CDT 200 Units, Intramuscular, ONCE, 1 dose, Maia 11/16/16 at 0915 in this encounter
--- OUTSIDE RECORDS SUMMARY | 2016-12-29 07:05 | XMS REPORT | Encounter Summary ---
Author Author [facility] Organization [facility] Address Unknown Phone Unavailable Care Team Providers Care Certified Midwife Name Role Phone PCP Unavailable Encounter Details Date Type Department Care Team Description 10/30/2016 Ancillary Rad Outpatient, Radiologist Diagnosis unknown Orders [address] [place] [address] Social History Tobacco Use Types [...]
--- OUTSIDE RECORDS SUMMARY | 2016-12-29 07:05 | XMS REPORT | Encounter Summary ---
Author Author [facility] Organization [facility] Address Unknown Phone Unavailable Care Team Providers Care Books Salesperson Name Role Phone PCP Unavailable Reason for Visit * Reason Comments Pre-Visit Planning Dr Caballero 11/08/16 Encounter Details Date Type Department Care Team Description 10/25/2016 Telephone [facility] Meseret Caballero MBBS Pre-Visit Planning ([facility] Neurology [address] [facility] [place] 11/08/16) [address] [place] [address] [place] [address] [phone] Social History Tobacco Use Types Packs/Day Years [...] Miscellaneous Notes * Telephone Encounter - Vi BridgesSAGAR - 10/25/2016 1:46 PM CDT Visit Date: 11/08/16 Reason for Visit: Migraines Physician Information PCP: Dr Solomon garrido Physician: Dr Lorena ARVIZU Previous Neurologist: Dr Sujit ARVIZU Neurosurgery Other providers seen: Previous Imaging: MRI Head CT Scan Head and CT and MRI of Neck [facility] [phone] Patient will try to bring disk. Medications, Allergies, History Updated (LB) in this encounter Plan of Treatment Not on fileas of this encounter Visit Diagnoses Not on filein this encounter
--- OUTSIDE RECORDS SUMMARY | 2016-12-29 07:05 | XMS REPORT | Encounter Summary ---
Author Author [facility] Organization [facility] Address Unknown Phone Unavailable Care Team Providers Care Hand Presser Name Role Phone PCP Unavailable Reason for Referral * Pain Authorization Status Reason Specialty Diagnoses / Referred By Referred To Procedures Contact Contact No Auth Needed Anesthesia Pain Diagnoses Emanuel Carrillo MD [facility] Spn Anesth Migraine without [address] [place] migrainosus, not [address], [place], [place] unspecified [address] migraine type Phone: Phone: P [phone] rocedures Fax: CHEMODENERVATION [phone] MUSCLE MIGRAINE Reason for Visit * Reason Comments Appointment Encounter Details Date Type Department Care Team Description 11/08/2016 Telephone [facility] Jennifer Canas RN Appointment Pain Procedure [address] [place] [facility] [place], [place] [id number] Social History Tobacco Use Types Packs/Day Years [...] encounter Miscellaneous Notes * Telephone Encounter - Miguelinaike Jennifer, RN - 11/08/2016 3:53 PM CDT Plan for second round of Botox as it can take 2-3 to check for effectiveness with migraines. See Dr. Caballero's note dated 11/08/2016. in this encounter Plan of Treatment Not on fileas of this encounter Results * CHEMODENERVATION MUSCLE MIGRAINE [...] was used. The injections were as follows: Info Specialist: 5 units each side Procerus: 5 units [...]
--- OUTSIDE RECORDS SUMMARY | 2016-12-29 07:05 | XMS REPORT | Encounter Summary ---
Author Author [facility] Organization [facility] Address Unknown Phone Unavailable Care Team Providers Care Brand Activation Manager Name Role Phone PCP Unavailable Reason for Visit * Reason Comments Headache Pt : reports noticed symptoms of headaches 2 years. Encounter Details Date Type Department Care Team Description 11/08/2016 Office Visit The [facility] Meseret Caballero MBBS Chronic migraine without Hospital Neurology [address] aura without status [address] [place] [address] migrainosus, not [address] [place] [address] intractable ([place] [address] Dx);Chronic daily [phone] headache Social History Tobacco Use Types Packs/Day [...] of the medications that have gained their [employer] recommendation for use. As [...] OXYGEN-AIR DELIVERY SYSTEMS (HORIZON NASAL CPAP SYSTEM [facility]) Use as directed. ranitidine(+) (ZANTAC) 150 mg [...] co-ordination of care. Meseret Caballero MD Clinical Loading Shovel Oiler Department of Neurology in this encounter Plan of Treatment Not on fileas of this encounter Visit Diagnoses Diagnosis Chronic migraine without aura without status migrainosus, not intractable - Primary Chronic migraine without aura, without mention of intractable migraine without mention of status migrainosus Chronic daily headache Headache in this encounter
[2016-12-29 07:30] VITALS: BP 115/68
[2016-12-29] MEDS ORDERED: LACTATED RINGERS 1,000 ML IV PRN (07:39)
--- NOTE | 2016-12-29 07:40 | Progress Note-Pre Operative ---
Pre-Operative Progress Note H&P Reviewed The H&P was reviewed, patient examined and no changes noted. Date Seen by Provider: Dec 21, 2016 Time Seen by Provider: 14:00 Date H&P Reviewed: Dec 29, 2016 Time H&P Reviewed: 07:40 Pre-Operative Diagnosis: Recurrent lipoma-LUQ of abdominal wall ADONIS PABLO MD Dec 29, 2016 7:40 am
[2016-12-29] MEDS ORDERED: ceFAZolin 2 GM/NS 50 ML IV ONE (07:45)
[2016-12-29] MEDS ORDERED: FAMOTIDINE 20MG/2ML IV (PEPCID) ONE (07:46)
[2016-12-29] MEDS ORDERED: MIDAZOLAM 2 MG/2 ML (VERSED) VIAL ONE (07:47)
[2016-12-29] MEDS ORDERED: LIDOCAINE PF 2% 5 ML (XYLOCAINE) VIAL ONE (07:47)
[2016-12-29] MEDS ORDERED: fentaNYL INJECTION 100 MCG/2 ML AMP ONE (07:47)
[2016-12-29] MEDS ORDERED: SEVOFLURANE (ULTANE) 15 ML INHAL SOLN ONE (07:47)
[2016-12-29] MEDS ORDERED: proPOfol 200 MG/20 ML (DIPRIVAN) VIAL IV ONE (07:47)
[2016-12-29] MEDS ORDERED: OMEG100032 PO (08:09)
[2016-12-29] MEDS ORDERED: MELA5TAB14 PO (08:09)
[2016-12-29] MEDS ORDERED: BUP/EPI 0.5% 1:200,000 (MARCAINE) 10ML VIAL IJ ONE (08:25)
[2016-12-29] MEDS ORDERED: ONDANSETRON 4 MG/2 ML (SDV) Z0FRAN ONE (08:44)
[2016-12-29] MEDS ORDERED: HYDR-3820 PO (08:50)
--- NOTE | 2016-12-29 08:51 | Discharge Inst-Simple/Standard ---
Discharge Inst-Standard Discharge Medications New, Converted or Re-Newed RX: RX on Chart Patient Instructions/Follow Up Plan of Care/Instructions/FU: Dressings off in 48 hours. Steri-Strips to stay. Follow-up when necessary. We shall call with pathology results Activity as Tolerated: Yes Discharge Diet: No Restrictions ADONIS PABLO MD Dec 29, 2016 8:51 am
--- NOTE | 2016-12-29 09:08 | Operative Report ---
Operative Report Date of Procedure/Surgery Dec 29, 2016 Surgeon (s) ADONIS PABLO MD Airline Manager (s): Not applicable Post-Operative Diagnosis Same Procedure Performed Excision Description of Procedure Anesthesia Type: General Estimated blood loss (mL): Minimal Specimen(s) collected/removed lipoma Description of the Procedure Indication for the procedure: This lady presented with a painful, recurrent lipoma about 2 cm in size, over the lateral aspect of her left upper quadrant of the abdominal wall. Due to her symptoms, it was felt reasonable to re- excise. Informed consent was obtained after reviewing the operative details and highlighting the natural history of further recurrence associated with the condition. Description of the procedure: She was placed supine on the operative table and general anesthesia induced. 2 g of Ancef were administered intravenously as prophylaxis against wound infection. The area was prepared and draped in the usual sterile manner. A 4 cm incision was made and the lipoma excised intact. Hemostasis was achieved using cautery and the incision closed using 3-0 Vicryl for the subcutaneous tissue and 4-0 Vicryl for skin, in a subjective left fashion. 0.5 percent Marcaine with epinephrine was infiltrated along the incision at the end of the operation. She tolerated the procedure well, was extubated in the operating room and taken to the recovery room in a stable condition. Findings of the Procedure See op report Allergies and Home Medications Allergies Coded Allergies: Penicillins (Verified Allergy, Unknown, 11/14/16) amitriptyline (Verified Allergy, Unknown, 11/14/16) amoxicillin (Verified Allergy, Unknown, 10/14/16) clavulanic acid (Verified Allergy, Unknown, 10/14/16) iloperidone (Verified Allergy, Unknown, 11/14/16) morphine (Verified Allergy, Unknown, 11/14/16) quetiapine (Verified Allergy, Unknown, 10/14/16) ropinirole (Verified Allergy, Unknown, 10/14/16) Home Medications Albuterol Sulfate 18 Gm Hfa.aer.ad, 2 PUFF IH QID PRN for SHORTNESS OF BREATH, ( Reported) Atomoxetine HCl 40 Mg Capsule, 40 MG PO DAILY, (Reported) Clonazepam 1 Mg Tablet, 1 MG PO TID PRN for ANXIETY, (Reported) Fluoxetine HCl 10 Mg Capsule, 10 MG PO evary other day, (Reported) Fluticasone Propionate 16 Gm [place].susp, 1-2 SPRAY NSEACH DAILY, (Reported) Fluticasone Propionate 1 Ea Aero, 2 PUFF IH BID, (Reported) Gabapentin 300 Mg Capsule, 900 MG PO TID, (Reported) take 3 (300mg) tabs Hydrocodone/Acetaminophen 1 Each Tablet, 1 TAB PO Q4H PRN for PAIN-MILD TO MODERATE, #30 Ref 0 Prescribed by: ADONIS PABLO on 12/29/16 0850 Lamotrigine 100 Mg Tablet, 100 MG PO BID, (Reported) Lubiprostone 24 Mcg Capsule, 24 MCG PO BID, (Reported) Melatonin 5 Mg Tablet, 10 MG PO HS, (Reported) Nadolol 20 Mg Tablet, 20 MG PO HS, (Reported) Nicotine 1 Each Patch.td24, 1 PATCH TD DAILY, (Reported) Williams-3/Dha/Epa/Fish Oil 1,000 Mg Capsule, 2,000 MG PO DAILY, (Reported) Omeprazole 20 Mg Capsule.dr, 20 MG PO BID, (Reported) Promethazine HCl 25 Mg Tablet, 25 MG PO Q8H PRN for NAUSEA/VOMITING-1ST LINE, ( Reported) Ranitidine HCl 150 Mg Tablet, 150 MG PO BID, (Reported) Risperidone 4 Mg Tablet, 4 MG PO HS, (Reported) Rizatriptan Benzoate 10 Mg Tablet, 10 MG PO UD PRN for HEADACHE, (Reported) take 1 tab on onset of headach, may repeat in 1-2 hours prn, max 2 per day, and 10 per month Sitagliptin Phosphate 100 Mg Tablet, 100 MG PO DAILY, (Reported) Tizanidine HCl 4 Mg Tablet, 4 MG PO TID, (Reported) Topiramate 25 Mg Tablet, 50 MG PO BID, (Reported) take 2 (25mg) tabs Verapamil HCl 120 Mg Tablet.er, 120 MG PO BID, (Reported) Zolpidem Tartrate 10 Mg Tablet, 10 MG PO HS, (Reported) ADONIS PABLO MD Dec 29, 2016 9:08 am
[2016-12-29] MEDS ORDERED: fentaNYL INJECTION 100 MCG/2 ML AMP IVP PRN (09:30)
[2016-12-29] MEDS ORDERED: morphine INJ 10 MG/ML 1ML (SYR OR VIAL) IVP PRN (09:30)
[2016-12-29] MEDS ORDERED: ONDANSETRON 4 MG/2 ML (SDV) Z0FRAN IVP PRN (09:30)
[2016-12-29] MEDS ORDERED: morphine INJ 10 MG/ML 1ML (SYR OR VIAL) ONE (09:32)
[2016-12-29 10:10] VITALS: BP 100/70
[2016-12-29 10:40] VITALS: BP 114/72
--- OUTSIDE RECORDS SUMMARY | 2016-12-29 13:05 | XMS REPORT | Clinical Summary ---
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 Juliet Kimbrough SENIOR STACK ENGINEER Dependence on other enabling machines and [...] Active Ahmet Carbajal MD Generalized anxiety disorder Public Health Officer well woman exam V72.31 Resolved Suzan Boo [...] Suzan Boo APRN Sinus tachycardia ICD-427.89 Inactive Szuan Boo APRN Smoker/tobacco use disorder-smoking cessation discussed [...] for closed fracture ICD-823.01 Inactive Suzan Boo SENIOR STACK ENGINEER Vaginal discharge ICD-623.5 Inactive Suzan Boo SENIOR STACK ENGINEER DYSURIA ICD-788.1 Inactive Suzan Boo SENIOR STACK ENGINEER Cellulitis and abscess of breast ICD-611.0 Inactive Ahmet Carbajal MD Nondisplaced transverse fracture of shaft of left fibula, subsequent encounter for closed fracture with routine healing Inactive Suzan Boo SENIOR STACK ENGINEER Bronchitis, acute ICD-466.0 Inactive Ahmet Carbajal MD Public Health Officer well woman exam ICD-V72.31 Inactive Suzan Boo SENIOR STACK ENGINEER Bronchitis, acute with mild bronchospasm ICD-466.0 Inactive Suzan Boo SENIOR STACK ENGINEER Tracheitis ICD-464.10 Inactive Suzan Boo SENIOR STACK ENGINEER Impetigo ICD-684 Inactive Suzan Boo SENIOR STACK ENGINEER Furuncle of buttock ICD-680.5 Inactive Suzan Boo SENIOR STACK ENGINEER Vaginal irritation ICD-623.9 Inactive Suzan Boo SENIOR STACK ENGINEER Scalding pain on urination ICD-788.1 Inactive Suzan Boo SENIOR STACK ENGINEER Abdominal pain, right upper quadrant ICD-789.01 Inactive Suzan Boo SENIOR STACK ENGINEER Dark urine ICD-791.9 Inactive Suzan Boo SENIOR STACK ENGINEER Preop exam ICD-V72.84 Inactive Suzan Boo APRN Medication List Medication Instructions Start Date Stop Date Generic Name NDC Status Provider Patient Instruction JANUVIA 100 MG TABS Take one by mouth daily SITAGLIPTIN PHOSPHATE 36842792412 Active Malharvey Ziglari AVION[employer] SYSTEMS REPAIRER Active METFORMIN HCL 500 MG [id number] one a day for a week, then 2 a day METFORMIN HCL 32239778576 Active Maliheh Ziglari AVIONICS SYSTEMS REPAIRER Active NYSTATIN 929606 UNIT/GM CREA apply three times a day to yeast rash NYSTATIN 23974645607 No Longer Active Maliheh Ziglari AVIONICS SYSTEMS REPAIRER Active BACTRIM DS 800-160 MG TABS 1 twice a day SULFAMETHOXAZOLE-TRIMETHOPRIM 18523621253 No Longer Active Maliheh Ziglari AVIONICS SYSTEMS REPAIRER Active MUPIROCIN 2 % OINT apply twice a day MUPIROCIN 76132703419 Active Suzan Boo APRN Active XCRDAMADEM-VGXI-[id number] 50-325-40 MG TABS 1 to 2 four times a day as needed for headache CNQXNENUYQ-[id number] 88207037302 Active Suzan Boo APRN Active METOCLOPRAMIDE HCL 10 MG TABS 1 two times as needed for nausea and headaches METOCLOPRAMIDE HCL 27160268792 Active Meena Ortiz MA Active AMITIZA 24 MCG ORAL CAPS one capsule twice daily LUBIPROSTONE 43244471177 Active Suzan Boo APRN Active MIRALAX ORAL POWD 17GMS DAILY IN WATER POLYETHYLENE GLYCOL 3350 19445383021 No Longer Active Suzan Boo APRN Active LACTULOSE 10 GM/15ML ORAL SOLN 30mL oral BID for IBS-C LACTULOSE 00770090168 No Longer Active Suzan Boo APRN Active BACTRIM DS 800-160 MG TAB Take one (1) tablet by mouth twice a day for 5 days TRIMETHOPRIM-SULFAMETHOXAZOLE 48159855304 No Longer Active Suzan Boo APRN Active MUPIROCIN 2 % OINT apply twice a day MUPIROCIN 24993266908 No Longer Active Suzan Boo APRN Active BACTRIM DS 800-160 MG TABS 1 twice a day SULFAMETHOXAZOLE-TRIMETHOPRIM 91473040963 No Longer Active Suzan Boo APRN Active DIFLUCAN 150 MG TABS 1 by mouth for yeast FLUCONAZOLE 39690272529 No Longer Active Suzan Boo APRN Active LINZESS 290 MCG ORAL CAPS 1 tab 30 min prior to first meal each day. LINACLOTIDE 63263526359 No Longer Active Sheila Calderon LPN Active AMITIZA 8 MCG ORAL CAPS 1 tab BID LUBIPROSTONE 80293939675 No Longer Active Lynda Xiao LPN Active TESSALON PERLES 100 MG CAPS 1 three times a day as needed for cough BENZONATATE 19153500490 No Longer Active Suzan Boo APRN Active BACTRIM DS 800-160 MG TABS 1 twice a day SULFAMETHOXAZOLE-TRIMETHOPRIM 28516195585 No Longer Active Suzan Boo APRN Active DIFLUCAN 150 MG TABS 1 by mouth for yeast FLUCONAZOLE 76521495634 No Longer Active Suzan Boo APRN Active EQ NICOTINE 21 MG/24HR TRANS PT24 Apply daily to stop smoking NICOTINE 48365629820 No Longer Active Suzan Boo APRN Active PREDNISONE 10 MG TABS 2 daily for 5 days then 1 daily for 5 days PREDNISONE 64988364542 No Longer Active Suzan Boo APRN Active LEVAQUIN 500 MG TABS 1 daily for infection LEVOFLOXACIN 94469470177 No Longer Active Suzan Boo APRN Active TROPICAMIDE 0.5 % OPHTH SOLN 1 drop PRN eye spasms TROPICAMIDE 14032008747 No Longer Active Suzan Boo APRN Active PREDNISONE 20 MG TAB 1 tablet daily x 4 days PREDNISONE 35800606370 No Longer Active Suzan Boo APRN Active ACETAMINOPHEN-CODEINE 120-12 MG/5ML SOLN 5 ml by mouth every 4-6 hours if needed for cough ACETAMINOPHEN-CODEINE 87314120351 No Longer Active Suzan Boo APRN Active KEFLEX 500 MG CAP 1 po qid CEPHALEXIN 65763896510 No Longer Active Suzan Boo APRN Active FLOVENT HFA 110 MCG/ACT AERO 2 puffs inhaled b.i.d. FLUTICASONE PROPIONATE HFA 85891286100 Active Renzo Thornton DO Active RISPERDAL 4 MG ORAL TABS 1 tab at bedtime RISPERIDONE 91886877107 Active Samantha Rothman RMA Active ZOFRAN 4 MG TABS 1 po q6hr PRN Nausea ONDANSETRON HCL No Longer Active Suzan Boo APRN Active FLUTICASONE PROPIONATE 50 MCG/ACT SUSP 2 sprays each nostril daily before bed. FLUTICASONE PROPIONATE 21383881446 No Longer Active Suzan Boo APRN Active ASPIRIN 325 MG ORAL TABS 1 tab q.d ASPIRIN 31445122415 No Longer Active Suzan Boo APRN Active HALOPERIDOL 10 MG ORAL TABS 1 tab q.d HALOPERIDOL 01008925656 No Longer Active Suzan Boo APRN Active GUAIFENESIN-CODEINE 100-10 MG/5ML SYRP 5ml every 4 to 6 hours as needed for cough GUAIFENESIN-CODEINE 83743201602 No Longer Active Suzan Boo APRN Active ZITHROMAX Z-EARNEST 250 MG TABS 2 today and then 1 daily for 4 days AZITHROMYCIN 64867436021 No Longer Active Suzan Boo APRN Active CLONAZEPAM 1 MG ORAL TABS 1 twice a day and an additional 1 tablet every other day as needed for pseudoseizures or anxiety CLONAZEPAM 63041970414 Active Suzan Boo APRN Active HYDROCODONE-ACETAMINOPHEN 5-325 MG ORAL TABS 1 tab two times a day HYDROCODONE-ACETAMINOPHEN 74435698860 No Longer Active Ahmet Carbajal MD Active LAMICTAL 100 MG ORAL TABS 1 tab 2 times qd. LAMOTRIGINE 10362647614 Active Ahmet Carbajal MD Active PREDNISONE 20 MG TABS 2 daily for 5 days then 1 daily for 5 days PREDNISONE 69796094523 No Longer Active Ahmet Carbajal MD Active FLUTICASONE PROPIONATE 50 MCG/ACT SUSP 1 to 2 sprays each nostril daily for allergies FLUTICASONE PROPIONATE 15149612957 Active Tila Valenzueal Active BENADRYL 25 MG CAP 4 po at bedtime for insomnia DIPHENHYDRAMINE HCL 90623513604 No Longer Active Ahmet Carbajal MD Active ADVAIR DISKUS 250-50 MCG/DOSE INH AEPB 1 puff twice a day for asthma FLUTICASONE-SALMETEROL 73702691511 No Longer Active Ahmet Carbajal MD Active KLONOPIN 1 MG ORAL TABS 1 tab po TID CLONAZEPAM 05217027724 No Longer Active Ahmet Carbajal MD Active ABILIFY MAINTENA 400 MG IM SUSR 400mg injection every 26 days ARIPIPRAZOLE 87536871275 No Longer Active Ahemt Carbajal MD Active TRAMADOL HCL 50 MG TABS 1/2-1 tab TID PRN TRAMADOL HCL 52676879389 No Longer Active Ahmet Carbajal MD Active BACTRIM DS 800-160 MG TABS 1 twice a day SULFAMETHOXAZOLE- TRIMETHOPRIM 93543908047 No Longer Active Ahmet Carbajal MD Active PROAIR HFA 108 (90 BASE) MCG/ACT AERS 2 puffs four times a day as needed 2015 ALBUTEROL SULFATE 16170323795 Active Honey Wensinainick SENIOR STACK ENGINEER Active MONISTAT 7 COMBO PACK WOODROW 100 & 2 MG-% (9GM) VAG KIT 1 applicatorful per vagina q pm x 7 MICONAZOLE NITRATE 45268776060 No Longer Active Ahmet Carbajal MD Active FLAGYL 500 MG TAB 1 tablet by mouth bid METRONIDAZOLE 60628963286 No Longer Active Ahmet Carbajal MD Active OXYCODONE HCL ER 10 MG ORAL T12A 1/2 tab by mouth every 4 hours prn OXYCODONE HCL 00670269268 No Longer Active Ahmet Carbajal MD Active METHYLPREDNISOLONE 4 MG ORAL TABS po daily METHYLPREDNISOLONE 48744575620 No Longer Active Ahmet Carbajal MD Active LEVOFLOXACIN 500 MG ORAL TABS po daily LEVOFLOXACIN 82910014101 No Longer Active Ahmet Carbajal MD Active VIIBRYD 10 MG ORAL TABS Take 1 tablet once a day VILAZODONE HCL 17400698615 No Longer Active Ahmet Carbajal MD Active TOPAMAX 50 MG ORAL TABS 1 tab twice daily TOPIRAMATE 31297983106 No Longer Active Ahmet Carbajal MD Active DICLOFENAC SODIUM 50 MG TBEC 1 tablet by mouth four times daily PRN Pain 2015 DICLOFENAC SODIUM 38884462653 No Longer Active Ahmet Carbajal MD Active ADZENYS XR-ODT 6.3 MG ORAL TBED 1 tab po daily for ADHD AMPHETAMINE 94646255015 No Longer Active Ahmet Carbajal MD Active CHANTIX 1 MG TABS 1 twice a day to help quit smoking VARENICLINE TARTRATE 89369191974 No Longer Active Dipika Burgos MD Active CHANTIX STARTING MONTH EARNEST 0.5 MG X 11 & 1 MG X 42 TABS take as directed 2015 VARENICLINE TARTRATE 60097547426 No Longer Active Dipika Burgos MD Active TESSALON PERLES 100 MG CAP 1 to 2 tablets by mouth 3 times daily as needed for cough BENZONATATE 67378707109 No Longer Active Luigi Martínez APRN Active IMITREX 50 MG ORAL TABS 0.5 po x 1 PRN Headache. May repeat dose x 1 in 2 hours if needed SUMATRIPTAN SUCCINATE 25109724191 Active TAMARA Casey Active HYDROCODONE-ACETAMINOPHEN 5-325 MG TABS 1 to 2 four times a day as needed for pain use until can be seen by specialist HYDROCODONE- ACETAMINOPHEN 86639090649 No Longer Active Vishal Hui MD Active PROAIR HFA 108 (90 BASE) MCG/ACT AERS 2 puffs four times a day as needed 2015 ALBUTEROL SULFATE 65939454207 No Longer Active Vishal Hui MD Active PREDNISONE 20 MG TABS 2 daily for 5 days then 1 daily for 5 days PREDNISONE 22054617307 No Longer Active Vishal Hui MD Active ZITHROMAX Z-EARNEST 250 MG TABS 2 today and then 1 daily for 4 days AZITHROMYCIN 27072867804 No Longer Active Vishal Hui MD Active DICLOFENAC POTASSIUM TABS Take 1 tablet twice a day (pt. is not sure of the dose.) DICLOFENAC POTASSIUM TABS 97531186207 No Longer Active Vishal Hui MD Active VERAPAMIL HCL ER 120 MG ORAL CR-TABS Take 1 tablet by mouth twice a day. VERAPAMIL HCL 43780984885 Active Vishal Hui MD Active FLAGYL 500 MG TAB 1 tablet by mouth bid METRONIDAZOLE 84650350742 No Longer Active Vishal Hui MD Active VALIUM 5 MG TAB Take 1-2 tablets daily DIAZEPAM 05608031179 No Longer Active Fabiola Johnson APRN Active METOPROLOL TARTRATE 25 MG ORAL TABS 1/2 tablet twice daily for heart rate and blood pressure METOPROLOL TARTRATE 29993502596 No Longer Active Fabiola Johnson APRN Active MIRALAX PACK 1 po qd PRN Constipation POLYETHYLENE GLYCOL 3350 20297201559 No Longer Active Ahmet Carbajal MD Active MINIPRESS 2 MG CAPS 4 cap po at night PRAZOSIN HCL 16424200519 No Longer Active Ahmet Carbajal MD Active PIROXICAM 20 MG CAPS 1 cap po qd PRN Pain PIROXICAM 58324689550 No Longer Active Ahmet Carbajal MD Active TRAMADOL HCL 50 MG TABS 1-2 po TID PRN Pain TRAMADOL HCL 91375886487 No Longer Active hAmet Carbajal MD Active METOPROLOL TARTRATE 50 MG TAB 1 po bid METOPROLOL TARTRATE 40118183181 No Longer Active Ahmet Carbajal MD Active ABILIFY 15 MG ORAL TABS 1 tab daily ARIPIPRAZOLE 91271827343 No Longer Active Ahmet Carbajal MD Active PROZAC 20 MG ORAL CAPS 1 tab daily FLUOXETINE HCL 54760453072 No Longer Active Ahmet Carbajal MD Active AMBIEN 5 MG ORAL TABS 1 tab at bedtime ZOLPIDEM TARTRATE 36935468943 No Longer Active Ahmet Carbajal MD Active PREDNISONE 20 MG TAB 2 tabs daily for 4 days, 1 tab daily for 4 days, 1/2 tab daily for 4 days PREDNISONE 81910168378 No Longer Active Ahmet Carbajal MD Active KEFLEX 500 MG CAP 1 po TID x 10 days CEPHALEXIN 14932888985 No Longer Active Vishal Hui MD Active SAPHRIS 5 MG SUBL 1 po bid ASENAPINE MALEATE 67278745265 No Longer Active Luigi Martínez APRN Active LATUDA 80 MG TABS Take one by mouth daily LURASIDONE HCL 66207487772 No Longer Active Pacollina Mauricio NORIEGA Active AMLODIPINE BESYLATE 5 MG TABS 1 tablet by mouth daily AMLODIPINE BESYLATE 43508734824 No Longer Active Pacolljanee Martínez APRN Active AMITRIPTYLINE HCL 100 MG TAB one at hs AMITRIPTYLINE HCL 32308609000 No Longer Active Vishal Hui MD Active TRAZODONE HCL 100 MG TAB take 1 at bedtime TRAZODONE HCL 78450784327 No Longer Active Vishal Hui MD Active VYVANSE 40 MG CAPS 1 daily, LISDEXAMFETAMINE DIMESYLATE 38520521167 No Longer Active Vishal Hui MD Active IBUPROFEN 600 MG TAB 1 po TID PRN IBUPROFEN 11565987523 No Longer Active Vishal Hui MD Active PROZAC 20 MG CAP Take one by mouth daily FLUOXETINE HCL 23187529071 No Longer Active Vishal Hui MD Active BACTRIM DS 800-160 MG TABS 1 pill by mouth twice daily SULFAMETHOXAZOLE-TRIMETHOPRIM 65693260446 No Longer Active Sahara Rodriguez MD PhD Active DIFLUCAN 150 MG TAB 1 tablet by mouth daily FLUCONAZOLE 07109469180 No Longer Active Vishal Hui MD Active TIZANIDINE HCL 4 MG TABS 1 po q6hr PRN Muscle Spasm/Back Pain TIZANIDINE HCL 63168348645 Active TAMARA Casey Active CLINDAMYCIN HCL 150 MG CAPS 1 four times a day CLINDAMYCIN HCL 51373180575 No Longer Active Neeraj Collins MD Active KEFLEX 500 MG ORAL CAPS 1 cap QID by mouth CEPHALEXIN 85753400485 No Longer Active Neeraj Collins MD Active DIFLUCAN 150 MG TABS 1 pill every other day x 2 doses FLUCONAZOLE 06804266240 No Longer Active Sahara Rodriguez MD PhD Active MELATONIN 3 MG CAPS 2 po q hs MELATONIN 68515056764 No Longer Active Sahara Rodriguez MD PhD Active MULTIVITAMINS CAPS Take one by mouth daily MULTIPLE VITAMIN 45759109301 No Longer Active Sahara Rodriguez MD PhD Active BACTRIM DS 800-160 MG TAB 1 tab by mouth twice daily TRIMETHOPRIM-SULFAMETHOXAZOLE 07859754632 No Longer Active Sahara Rodriguez MD PhD Active [facility] PROBIOTIC ORAL CHEW 2 daily po PROBIOTIC PRODUCT 24988123211 No Longer Active Sahara Rodriguez MD PhD Active BACTRIM DS 800-160 MG TABS 1 po BID x 7 days SULFAMETHOXAZOLE-TRIMETHOPRIM 92579883517 No Longer Active Vishal Hui MD Active CHANTIX STARTING MONTH EARNEST 0.5 MG X 11 & 1 MG X 42 TABS 0.5mg daily for 3 days , then 0.5mg BID for 4 days, then 1mg BID VARENICLINE TARTRATE 81279441688 No Longer Active TAMARA Gray Active VERAPAMIL HCL CR 120 MG TAB CR 1 po bid VERAPAMIL HCL 27500046086 No Longer Active Vishal Hui MD Active METOPROLOL SUCCINATE 50 MG TB24 1 tablet by mouth daily METOPROLOL SUCCINATE 80307461199 No Longer Active Vishal Hui MD Active SAPHRIS 10 MG SUBL 1 tab po bid ASENAPINE MALEATE 70868412407 No Longer Active Vishal Hui MD Active LISINOPRIL 20 MG TABS 1 tab po qd LISINOPRIL 84591386429 No Longer Active Vishal Hui MD Active LATUDA 20 MG TABS Take one by mouth daily LURASIDONE HCL 85639344260 No Longer Active Vishal Hui MD Active TRAZODONE HCL 50 MG TABS 1/2 tab po qd prn for anxiety TRAZODONE HCL 84636518889 No Longer Active Vishal Hui MD Active OMEPRAZOLE 20 MG TBEC 1 po q a.m. 30min prior to first food intake OMEPRAZOLE 82335883628 Active TAMARA Casey Active RANITIDINE HCL 150 MG CAPS 1 twice a day RANITIDINE HCL 93269024379 Active Lynda Xiao LPN Active LINZESS 290 MCG CAPS Take one by mouth daily LINACLOTIDE 63121695780 No Longer Active Vishal Hui MD Active SAPHRIS 5 MG SUBL 1 tab po qd ASENAPINE MALEATE 34289950989 No Longer Active Vishal Hiu MD Active ZALEPLON 10 MG CAPS 1 cap po every other night ZALEPLON 30162487284 No Longer Active Vishal Hui MD Active LYRICA 50 MG CAPS 1 tab po TID PREGABALIN 11581511943 No Longer Active Vishal Hui MD Active LORATADINE 10 MG TABS 1 tab po qd LORATADINE 56867038511 No Longer Active Vishal Hui MD Active VERAPAMIL HCL ER 180 MG CR-TABS 1 tab po bid VERAPAMIL HCL 50461171456 No Longer Active Vishal Hui MD Active MIRALAX POWD 1 capfull once daily POLYETHYLENE GLYCOL 3350 90510542795 No Longer Active Vishal Hui MD Active PREDNISONE 20 MG TABS 1 tab po qd PREDNISONE 66050305334 No Longer Active Renzo Thornton DO Active LEVOFLOXACIN 500 MG TABS 1 tab po qd LEVOFLOXACIN 59920707528 No Longer Active Renzo Thornton DO Active BUSPIRONE HCL 15 MG TABS 1 tab po TID BUSPIRONE HCL 32839777355 No Longer Active Renzo Thornton DO Active BENZTROPINE MESYLATE 1 MG TABS 1 tab po qd BENZTROPINE MESYLATE 81218938668 No Longer Active Renzo Thornton DO Active ATENOLOL 25 MG TABS 1 tab po qd ATENOLOL 12243130126 No Longer Active Renzo Thornton DO Active ESCITALOPRAM OXALATE 20 MG TABS 1 tab po qd ESCITALOPRAM OXALATE 81151945766 No Longer Active Renzo Thornton DO Active ADVAIR DISKUS 250-50 MCG/DOSE AEPB 1 puff BID FLUTICASONE-SALMETEROL 79351579870 No Longer Active Renzo Thornton DO Active PREDNISONE 20 MG TAB 2 tabs daily for 3 days, 1 tab daily for 3 days, 1/2 tab daily for 2 days PREDNISONE 22187902114 No Longer Active Vishal Hui MD Active CEFDINIR 300 MG CAPS by mouth twice a day CEFDINIR 78550276823 No Longer Active Vishal Hui MD Active LANSOPRAZOLE 30 MG CPDR 1 cap po qd LANSOPRAZOLE 30628694518 No Longer Active Vishal Hui MD Active BACLOFEN 20 MG TABS 1 tab po tid BACLOFEN 37200614556 No Longer Active Vishal Hui MD Active ADVAIR DISKUS 250-50 MCG/DOSE AEPB 1 puff BID ADVAIR DISKUS 250-50 MCG/DOSE AEPB FLUTICASONE-SALMETEROL Inactive ESCITALOPRAM OXALATE 20 MG TABS 1 tab po qd ESCITALOPRAM OXALATE 20 MG TABS 051218 ESCITALOPRAM OXALATE Inactive ATENOLOL 25 MG TABS 1 tab po qd ATENOLOL 25 MG TABS 665171 ATENOLOL Inactive BENZTROPINE MESYLATE 1 MG TABS 1 tab po qd BENZTROPINE MESYLATE 1 MG TABS 367153 BENZTROPINE MESYLATE Inactive BUSPIRONE HCL 15 MG TABS 1 tab po TID BUSPIRONE HCL 15 MG TABS 904780 BUSPIRONE HCL Inactive LEVOFLOXACIN 500 MG TABS 1 tab po qd LEVOFLOXACIN 500 MG TABS 920511 LEVOFLOXACIN Inactive PREDNISONE 20 MG TABS 1 tab po qd PREDNISONE 20 MG TABS 540705 PREDNISONE Inactive MIRALAX POWD 1 capfull once daily MIRALAX POWD 418736 POLYETHYLENE GLYCOL 3350 Inactive VERAPAMIL HCL ER 180 MG CR-TABS 1 tab po bid VERAPAMIL HCL ER 180 MG CR-TABS VERAPAMIL HCL Inactive LORATADINE 10 MG TABS 1 tab po qd LORATADINE 10 MG TABS 975184 LORATADINE Inactive LYRICA 50 MG CAPS 1 tab po TID LYRICA 50 MG CAPS PREGABALIN Inactive ZALEPLON 10 MG CAPS 1 cap po every other night ZALEPLON 10 MG CAPS 658372 ZALEPLON Inactive SAPHRIS 5 MG SUBL 1 tab po qd SAPHRIS 5 MG SUBL ASENAPINE MALEATE Inactive TRAZODONE HCL 50 MG TABS 1/2 tab po qd prn for anxiety TRAZODONE HCL 50 MG TABS 818701 TRAZODONE HCL Inactive LATUDA 20 MG TABS Take one by mouth daily LATUDA 20 MG TABS LURASIDONE HCL Inactive LISINOPRIL 20 MG TABS 1 tab po qd LISINOPRIL 20 MG TABS 728898 LISINOPRIL Inactive SAPHRIS 10 MG SUBL 1 [...] twice daily BACTRIM DS 800-160 MG TAB 771731 TRIMETHOPRIM-SULFAMETHOXAZOLE Inactive MULTIVITAMINS CAPS Take one by mouth daily MULTIVITAMINS CAPS MULTIPLE VITAMIN Inactive MELATONIN 3 MG CAPS 2 po q hs MELATONIN 3 MG CAPS 709228 MELATONIN Inactive KEFLEX 500 MG ORAL CAPS 1 cap QID by mouth KEFLEX 500 MG ORAL CAPS 484137 CEPHALEXIN Inactive CLINDAMYCIN HCL 150 MG CAPS 1 four times a day CLINDAMYCIN HCL 150 MG CAPS 598986 CLINDAMYCIN HCL Inactive DIFLUCAN 150 MG TAB 1 tablet by mouth daily DIFLUCAN 150 MG TAB 442993 FLUCONAZOLE Inactive PROZAC 20 MG CAP Take one by mouth daily PROZAC 20 MG CAP 256632 FLUOXETINE HCL Inactive IBUPROFEN 600 MG TAB 1 po TID PRN IBUPROFEN 600 MG TAB 323213 IBUPROFEN Inactive VYVANSE 40 MG CAPS 1 daily, VYVANSE 40 MG CAPS LISDEXAMFETAMINE DIMESYLATE Inactive TRAZODONE HCL 100 MG TAB take 1 at bedtime TRAZODONE HCL 100 MG TAB 813232 TRAZODONE HCL Inactive AMITRIPTYLINE HCL 100 MG TAB one at hs AMITRIPTYLINE HCL 100 MG TAB 414649 AMITRIPTYLINE HCL Inactive AMLODIPINE BESYLATE 5 MG TABS 1 tablet by mouth daily AMLODIPINE BESYLATE 5 MG TABS 727840 AMLODIPINE BESYLATE Inactive LATUDA 80 MG TABS Take one by mouth daily LATUDA 80 MG TABS LURASIDONE HCL Inactive SAPHRIS 5 MG SUBL 1 po bid SAPHRIS 5 MG SUBL ASENAPINE MALEATE Inactive PREDNISONE 20 MG TAB 2 tabs daily for 4 days, 1 tab daily for 4 days, 1/2 tab daily for 4 days PREDNISONE 20 MG TAB 752952 PREDNISONE Inactive AMBIEN 5 MG ORAL TABS 1 tab at bedtime AMBIEN 5 MG ORAL TABS 090957 ZOLPIDEM TARTRATE Inactive PROZAC 20 MG ORAL CAPS 1 tab daily PROZAC 20 MG ORAL CAPS 202968 FLUOXETINE HCL Inactive ABILIFY 15 MG ORAL TABS 1 tab daily ABILIFY 15 MG ORAL TABS 831749 ARIPIPRAZOLE Inactive METOPROLOL TARTRATE 50 MG TAB 1 po bid METOPROLOL TARTRATE 50 MG TAB 361896 METOPROLOL TARTRATE Inactive TRAMADOL HCL 50 MG TABS 1-2 po TID PRN Pain TRAMADOL HCL 50 MG TABS 649752 TRAMADOL HCL Inactive PIROXICAM 20 MG CAPS 1 cap po qd PRN Pain PIROXICAM 20 MG CAPS 221391 PIROXICAM Inactive MINIPRESS 2 MG CAPS 4 cap po at night MINIPRESS 2 MG CAPS 888966 PRAZOSIN HCL Inactive MIRALAX PACK 1 po qd PRN Constipation MIRALAX PACK 195509 POLYETHYLENE GLYCOL 3350 Inactive METOPROLOL TARTRATE 25 MG ORAL TABS 1/2 tablet twice daily for heart rate and blood pressure METOPROLOL TARTRATE 25 MG ORAL TABS 915504 METOPROLOL TARTRATE Inactive VALIUM 5 MG TAB Take 1-2 tablets daily VALIUM 5 MG TAB 627039 DIAZEPAM Inactive FLAGYL 500 MG TAB 1 tablet by mouth bid FLAGYL 500 MG TAB 244255 METRONIDAZOLE Inactive DICLOFENAC POTASSIUM TABS Take 1 tablet twice a day (pt. is not sure of the dose.) DICLOFENAC POTASSIUM TABS DICLOFENAC POTASSIUM TABS Inactive ZITHROMAX Z-EARNEST 250 MG TABS 2 today and then 1 daily for 4 days ZITHROMAX Z-EARNEST 250 MG TABS 8101434 AZITHROMYCIN Inactive PREDNISONE 20 MG TABS 2 daily for 5 days then 1 daily for 5 days PREDNISONE 20 MG TABS 579168 PREDNISONE Inactive PROAIR HFA 108 (90 BASE) MCG/ACT AERS 2 puffs four times a day as needed 2015 PROAIR HFA 108 (90 BASE) MCG/ACT AERS ALBUTEROL SULFATE Inactive HYDROCODONE-ACETAMINOPHEN 5-325 MG TABS 1 to 2 four times a day as needed for pain use until can be seen by specialist HYDROCODONE- ACETAMINOPHEN 5-325 MG TABS 080172 HYDROCODONE-ACETAMINOPHEN Inactive TESSALON PERLES 100 MG CAP 1 to 2 tablets by mouth 3 times daily as needed for cough TESSALON PERLES 100 MG CAP 206229 BENZONATATE Inactive CHANTIX STARTING MONTH EARNEST 0.5 [...] Pain 2015 DICLOFENAC SODIUM 50 MG TBEC 026935 DICLOFENAC SODIUM Inactive TOPAMAX 50 MG ORAL TABS 1 tab twice daily TOPAMAX 50 MG ORAL TABS 487362 TOPIRAMATE Inactive VIIBRYD 10 MG ORAL TABS Take 1 tablet once a day VIIBRYD 10 MG ORAL TABS VILAZODONE HCL Inactive LEVOFLOXACIN 500 MG ORAL TABS po daily LEVOFLOXACIN 500 MG ORAL TABS 190127 LEVOFLOXACIN Inactive METHYLPREDNISOLONE 4 MG ORAL TABS po daily METHYLPREDNISOLONE 4 MG ORAL TABS 347239 METHYLPREDNISOLONE Inactive OXYCODONE HCL ER 10 MG ORAL T12A 1/2 tab by mouth every 4 hours prn OXYCODONE HCL ER 10 MG ORAL T12A OXYCODONE HCL Inactive FLAGYL 500 MG TAB 1 tablet by mouth bid FLAGYL 500 MG TAB 609235 METRONIDAZOLE Inactive MONISTAT 7 COMBO PACK WOODROW 100 & 2 MG-% (9GM) VAG KIT 1 applicatorful per vagina q pm x 7 MONISTAT 7 COMBO PACK WOODROW 100 & 2 MG-% (9GM) VAG KIT MICONAZOLE NITRATE Inactive BACTRIM DS 800-160 MG TABS 1 twice a day BACTRIM DS 800-160 MG TABS 139276 SULFAMETHOXAZOLE-TRIMETHOPRIM Inactive TRAMADOL HCL 50 MG TABS 1/2-1 tab TID PRN TRAMADOL HCL 50 MG TABS 045832 TRAMADOL HCL Inactive ABILIFY MAINTENA 400 MG IM SUSR 400mg injection every 26 days ABILIFY MAINTENA 400 MG IM SUSR ARIPIPRAZOLE Inactive KLONOPIN 1 MG ORAL TABS 1 tab po TID KLONOPIN 1 MG ORAL TABS 293919 CLONAZEPAM Inactive ADVAIR DISKUS 250-50 MCG/DOSE INH AEPB 1 puff twice a day for asthma ADVAIR DISKUS 250-50 MCG/DOSE INH AEPB FLUTICASONE- SALMETEROL Inactive BENADRYL 25 MG CAP 4 po at bedtime for insomnia BENADRYL 25 MG CAP DIPHENHYDRAMINE HCL Inactive PREDNISONE 20 MG TABS 2 daily for 5 days then 1 daily for 5 days PREDNISONE 20 MG TABS [id number] PREDNISONE Inactive HYDROCODONE-ACETAMINOPHEN 5-325 MG ORAL TABS 1 tab two times a day HYDROCODONE-ACETAMINOPHEN 5-325 MG ORAL TABS [id number] HYDROCODONE-ACETAMINOPHEN Inactive ZITHROMAX Z-EARNEST 250 MG TABS 2 today and then 1 daily for 4 days ZITHROMAX Z-EARNEST 250 MG TABS [id number] AZITHROMYCIN Inactive GUAIFENESIN-CODEINE 100-10 MG/5ML SYRP 5ml every 4 to 6 hours as needed for cough GUAIFENESIN-CODEINE 100-10 MG/5ML SYRP [id number] GUAIFENESIN-CODEINE Inactive HALOPERIDOL 10 MG ORAL TABS 1 tab q.d HALOPERIDOL 10 MG ORAL TABS 694225 HALOPERIDOL Inactive ASPIRIN 325 MG ORAL TABS 1 tab q.d ASPIRIN 325 MG ORAL TABS 499037 ASPIRIN Inactive FLUTICASONE PROPIONATE 50 MCG/ACT SUSP 2 sprays each nostril daily before bed. FLUTICASONE PROPIONATE 50 MCG/ACT SUSP [id number] FLUTICASONE PROPIONATE Inactive ZOFRAN 4 MG TABS 1 po q6hr PRN Nausea ZOFRAN 4 MG TABS 992008 ONDANSETRON HCL Inactive KEFLEX 500 MG CAP 1 po qid KEFLEX 500 MG CAP 792920 CEPHALEXIN Inactive ACETAMINOPHEN-CODEINE 120-12 MG/5ML SOLN 5 ml by mouth every 4-6 hours if needed for cough ACETAMINOPHEN-CODEINE 120-12 MG/5ML SOLN 499922 ACETAMINOPHEN-CODEINE Inactive PREDNISONE 20 MG TAB 1 tablet daily x 4 days PREDNISONE 20 MG TAB 539612 PREDNISONE Inactive TROPICAMIDE 0.5 % OPHTH SOLN 1 drop PRN eye spasms TROPICAMIDE 0.5 % OPHTH SOLN 513468 TROPICAMIDE Inactive LEVAQUIN 500 MG TABS 1 daily for infection LEVAQUIN 500 MG TABS 231318 LEVOFLOXACIN Inactive PREDNISONE 10 MG TABS 2 [...] for cough TESSALON PERLES 100 MG CAPS 293695 BENZONATATE Inactive AMITIZA 8 MCG ORAL CAPS 1 tab BID AMITIZA 8 MCG ORAL CAPS LUBIPROSTONE Inactive LINZESS 290 MCG ORAL CAPS 1 tab 30 min prior to first meal each day. LINZESS 290 MCG ORAL CAPS LINACLOTIDE Inactive DIFLUCAN 150 MG TABS 1 by mouth for yeast DIFLUCAN 150 MG TABS 347563 FLUCONAZOLE Inactive BACTRIM DS 800-160 MG TABS 1 twice a day BACTRIM DS 800-160 MG TABS 19820521 SULFAMETHOXAZOLE-TRIMETHOPRIM Inactive MUPIROCIN 2 % OINT apply twice a day MUPIROCIN 2 % OINT 868338 MUPIROCIN Inactive BACTRIM DS 800-160 MG TAB Take one (1) tablet by mouth twice a day for 5 days BACTRIM DS 800-160 MG TAB 367231 TRIMETHOPRIM- SULFAMETHOXAZOLE Inactive LACTULOSE 10 GM/15ML ORAL SOLN 30mL oral BID for IBS-C LACTULOSE 10 GM/15ML ORAL SOLN 402516 LACTULOSE Inactive MIRALAX ORAL POWD 17GMS DAILY IN WATER MIRALAX ORAL POWD 353130 POLYETHYLENE GLYCOL 3350 Inactive BACTRIM DS 800-160 MG TABS 1 twice a day BACTRIM DS 800-160 MG TABS 19820521 SULFAMETHOXAZOLE-TRIMETHOPRIM Inactive NYSTATIN 206733 UNIT/GM CREA apply three times a day to yeast rash NYSTATIN 657476 UNIT/GM CREA 216390 NYSTATIN Inactive CEFDINIR 300 MG CAPS by mouth twice a day CEFDINIR 300 MG CAPS 158909 CEFDINIR Inactive PREDNISONE 20 MG TAB 2 tabs daily for 3 days, 1 tab daily for 3 days, 1/2 tab daily for 2 days PREDNISONE 20 MG TAB 014535 PREDNISONE Inactive BACTRIM DS 800-160 MG TABS 1 po BID x 7 days BACTRIM DS 800-160 MG TABS 19820521 SULFAMETHOXAZOLE-TRIMETHOPRIM Inactive DIFLUCAN 150 MG TABS 1 pill every other day x 2 doses DIFLUCAN 150 MG TABS 014956 FLUCONAZOLE Inactive BACTRIM DS 800-160 MG TABS 1 pill by mouth twice daily BACTRIM DS 800-160 MG TABS 19820521 SULFAMETHOXAZOLE-TRIMETHOPRIM Inactive KEFLEX 500 MG CAP 1 po TID x 10 days KEFLEX 500 MG CAP 378672 CEPHALEXIN Inactive Advance Directives Directive Description Start [...] temperature weight E&M 266 [lb_av] Weight Measured Diagnostic Results Date Name [...] % 11.0-15.0 platelet count 443 THOUSAND/UL 10*3/mm3 [phone]/03/01 mean platelet volume 8.2 fL 7.5-12.5 leukocyte [...] % 11.0-15.0 platelet count 349 THOUSAND/UL 10*3/mm3 762-742 1550/04/12 mean platelet volume 8.4 fL 7.5-12.5 Lab Report: CBC W/DIFF, Comp. Metabolic Panel, HGBA1C, Magnesium - Chemistry sodium, serum 141 mmol/L 456-686 9455/07/24 carbon dioxide, venous blood 27.8 mmol/L 21.0-32.0 [...] 369 10^3/MM^3 10*3/mm3 142-424 Lab Report: Chlamydia/GC APTIMA/35603 - Lab chlamydia DNA probe NOT DETECTED NOT DETECTED Lab Report: Chlamydia/GC APTIMA/49444 - Microbiology Neisseria gonorrhoeae DNA probe NOT DETECTED NOT DETECTED Lab Report: Chlamydia/GC APTIMA/49647, Urinalysis, Complete, with Reflex ... - Lab chlamydia DNA probe NOT DETECTED NOT DETECTED Lab Report: Chlamydia/GC APTIMA/47267, Urinalysis, Complete, with Reflex ... - Microbiology Neisseria gonorrhoeae DNA probe NOT DETECTED NOT DETECTED Lab Report: Chlamydia/GC APTIMA/87668, Urinalysis, Complete, with Reflex ... - Urinalysis microalbumin/total urine volume 2 mg/L Units converted. See lab report for original value. microalbumin/creatinine ratio, urine 9 MCG/MG CREAT mg/L <30 Lab Report: Comp. Metabolic Panel - Chemistry sodium, serum 140 mmol/L [phone]/06/28 carbon dioxide, venous blood 23.8 mmol/L 21.0-32.0 [...] negative Encounters Code Encounter Date Provider Facility CPT-75250 Level 5 Est. Patient 12:01:37 CDT Maude Miranda [facility] CPT-20306 Level 3 Est. Patient 11:36:47 CDT Suzan Jefferson [facility] CPT-69404 Level 3 Est. Patient 10:53:17 CDT Suzan Jefferson [facility] CPT-31560 Level 3 Est. Patient 11:08:35 CDT Suzan Jefferson [facility] CPT-83100 Level 3 Est. Patient 15:55:20 CDT Suzan Jefferson [facility] CPT-41392 Level 4 Est. Patient 10:49:34 CDT Suzan Jefferson [facility] CPT-39573 Level 3 Est. Patient 10:00:25 CDT Suzan Jefferson [facility] CPT-27329 Level 3 Est. Patient 10:29:30 CDT Suzan Jefferson [facility] CPT-56066 Level 3 Est. Patient 11:04:38 CDT Renzo Thornton [facility] CPT-36790 Level 3 Est. Patient 11:15:58 STEM PROCESSING MACHINE OPERATOR Renzo Thornton [facility] CPT-18236 Level 3 Est. Patient 15:28:23 STEM PROCESSING MACHINE OPERATOR Suzan Boo [facility] CPT-47851 Level 4 Est. Patient 10:20:54 STEM PROCESSING MACHINE OPERATOR Suzan Boo [facility] CPT-09306 Level 3 Est. Patient 11:47:37 STEM PROCESSING MACHINE OPERATOR Ahmet Carbajal MD [facility] CPT-13280 Level 3 Est. Patient 10:40:11 STEM PROCESSING MACHINE OPERATOR Ahmet Carbajal MD [facility] CPT-02331 Level 3 Est. Patient 15:07:06 STEM PROCESSING MACHINE OPERATOR Neeraj Collins MD [facility] CPT-86539 Level 4 Est. Patient 14:45:00 STEM PROCESSING MACHINE OPERATOR Ahmet Carbajal MD [facility] CPT-26305 Level 3 Est. Patient 13:59:59 CDT Luigi Martínez [facility] CPT-07738 Level 3 Est. Patient 18:18:53 CDT Neeraj Collins MD [facility] CPT-07177 Level 3 Est. Patient 15:50:44 CDT Vishal Hui MD [facility] CPT-98035 Level 3 Est. Patient 11:36:17 CDT Ahmet Carbajal MD [facility] CPT-95057 Level 3 Est. Patient 13:29:16 CDT Vishal Hui MD [facility] CPT-22437 Level 3 Est. Patient 14:27:52 CDT Neeraj Collins MD [facility] CPT-10150 Level 3 Est. Patient 08:56:03 CDT Luigi Martínez [facility] CPT-69473 Level 4 Est. Patient 12:11:48 CDT Fabiola Johnson [facility] CPT-32438 Level 3 New Patient 16:53:37 CDT Albert Caldera MD [facility] CPT-90266 Level 3 Est. Patient 11:25:49 CDT Renzo Thornton DO [facility] CPT-17958 Level 3 Est. Patient 15:22:01 CDT Ahmet Carbajal MD [facility] CPT-27400 Level 4 Est. Patient 09:00:51 STEM PROCESSING MACHINE OPERATOR Vishal Hui MD [facility] CPT-72720 Level 3 Est. Patient 11:37:33 STEM PROCESSING MACHINE OPERATOR Vishal Hui MD [facility] CPT-91945 Level 3 Est. Patient 08:41:09 STEM PROCESSING MACHINE OPERATOR Vishal Hui MD [facility] CPT-58663 Level 4 Est. Patient 10:19:35 STEM PROCESSING MACHINE OPERATOR Vishal Hui MD [facility] CPT-62194 Level 3 Est. Patient 13:35:45 CDT Vishal Hui MD [facility] CPT-11848 Level 4 Est. Patient 10:08:37 CDT Vishal Hui MD [facility] CPT-71355 Level 3 Est. Patient 11:22:10 CDT Vishal Hui MD [facility] CPT-65150 Level 3 Est. Patient 11:03:32 CDT Sahara Rodriguez MD, PhD [facility] CPT-13906 Level 3 Est. Patient 09:41:35 CDT Vishal Hui MD [facility] CPT-03784 Level 3 Est. Patient 12:00:41 CDT Neeraj Collins MD [facility] CPT-83649 Level 3 Est. Patient 09:16:24 CDT Vishal Hui MD [facility] CPT-97711 Level 4 Est. Patient 13:59:09 CDT Neeraj Collins MD [facility] CPT-87246 Level 3 Est. Patient 15:19:43 CDT Renzo Thornton [facility] CPT-69007 Level 3 Est. Patient 18:10:26 CDT Sahara Rodriguez MD PhD [facility] CPT-11487 Level 3 Est. Patient 14:49:50 CDT Vishal Hui MD [facility] CPT-68729 Level 4 Est. Patient 18:41:46 CDT Neeraj Collins MD [facility] CPT-38634 Level 4 Est. Patient 09:18:38 STEM PROCESSING MACHINE OPERATOR Vishal Hui MD [facility] CPT-05170 Level 3 Est. Patient 14:43:55 STEM PROCESSING MACHINE OPERATOR Vishal Hui MD [facility] CPT-81726 Level 3 Est. Patient 15:26:33 STEM PROCESSING MACHINE OPERATOR Sahara Rodriguez MD PhD [facility] CPT-02589 Level 3 Est. Patient 10:32:14 STEM PROCESSING MACHINE OPERATOR Vishal Hui MD [facility] CPT-31190 Level 3 Est. Patient 15:12:52 STEM PROCESSING MACHINE OPERATOR Vsihal Hui MD [facility] CPT-80662 Level 4 Est. Patient 09:19:27 CDT Vishal Hui MD [facility] CPT-92079 Level 3 Est. Patient 15:53:00 CDT Renzo Thornton [facility] CPT-06421 Level 3 Est. Patient 15:50:30 CDT Renzo Thornton [facility] CPT-66557 Level 3 Est. Patient 16:55:24 CDT Vishal Hui MD [facility] Procedures Code Procedure Name Date Entry Date Standard Description CPT-40676 UA Dip Auto (Floor Use Only) 11:36:47 CDT CPT-40867 Venipuncture Draw Fee 10:53:17 CDT CPT-84362 EKG Trac and Interp - XRAY USE ONLY 15:59:30 CDT 09/13 CPT-47434 Chest 1V Frontal - XRAY USE ONLY 15:59:30 CDT CPT-15672 Venipuncture Draw Fee 15:44:02 CDT CPT-91098 Venipuncture Draw Fee 08:41:12 CDT CPT-34942 Abd compl w upright - XRAY USE ONLY 10:27:59 CDT 06/28 CPT-33760 Smoking Cessation counseling 11:15:58 STEM PROCESSING MACHINE OPERATOR CPT-G0439 Subsequent Annual Wellness Exam 09:30:58 STEM PROCESSING MACHINE OPERATOR CPT-21094 TSH - LAB USE ONLY 08:50:26 STEM PROCESSING MACHINE OPERATOR CPT-43672 CBC - LAB USE ONLY 08:50:26 STEM PROCESSING MACHINE OPERATOR CPT-99465 Venipuncture Draw Fee 08:50:26 STEM PROCESSING MACHINE OPERATOR CPT-14367 Abx/Therapy Injection 17:34:30 STEM PROCESSING MACHINE OPERATOR CPT-46403 Nexplanon Removal with Reinsertion 14:09:32 CDT CPT-J7307 Nexplanon (Implant) 14:09:32 CDT CPT-OV Office Visit 14:09:32 CDT CPT-81718 UA w micro - LAB USE ONLY 16:21:13 CDT CPT-23749 Wet Mount - LAB USE ONLY 16:21:13 CDT CPT-71808 First Vx - Ix admin for Medicare patients 14:37:47 CDT CPT-14241 Fluzone Preservative Free Intramuscular Suspension 14:37 :47 CDT CPT-56359 Abx/Therapy Injection 13:54:22 CDT CPT-28787 Abx/Therapy Injection 08:47:09 CDT CPT-27164 Abx/Therapy Injection 13:29:56 CDT CPT-47738 Abx/Therapy Injection 08:36:16 CDT CPT-20891 Wet Mount - LAB USE ONLY 17:44:58 CDT CPT-82528 UA w micro - LAB USE ONLY 17:44:58 CDT CPT-15694 CMP - LAB USE ONLY 17:44:58 CDT CPT-35326 Venipuncture Draw Fee 17:44:58 CDT CPT-25546 Cervical Min 4V - XRAY USE ONLY 09:01:40 CDT CPT-14192 Chest 2V Frontal and Lat - XRAY USE ONLY 11:06:31 CDT CPT-15590 EKG Trac and Interp - XRAY USE ONLY 11:31:43 CDT 08/26 CPT-J3420 Vitamin B12 1000mcg (Cyanocobalamin) 08:10:26 STEM PROCESSING MACHINE OPERATOR 04/12 CPT-88783 Abx/Therapy Injection 08:10:26 STEM PROCESSING MACHINE OPERATOR CPT-G0438 Initial Annual Wellness Exam 19:01:01 STEM PROCESSING MACHINE OPERATOR CPT-J3420 Vitamin B12 1000mcg (Cyanocobalamin) 16:57:46 CDT 08/14 CPT-73249 Recombivax HB Injection Suspension 5 MCG/0.5ML 08:37:50 STEM PROCESSING MACHINE OPERATOR CPT-71778 Immunization Single Admin 08:37:50 STEM PROCESSING MACHINE OPERATOR CPT-J3420 Vitamin B12 1000mcg (Cyanocobalamin) 08:32:16 STEM PROCESSING MACHINE OPERATOR 03/11 CPT-67869 Abx/Therapy Injection 08:32:16 STEM PROCESSING MACHINE OPERATOR CPT-50004 Chest 2V Frontal and Lat 11:46:38 STEM PROCESSING MACHINE OPERATOR CPT-78397 Venipuncture Draw Fee 09:12:45 STEM PROCESSING MACHINE OPERATOR CPT-J3420 Vitamin B12 1000mcg (Cyanocobalamin) 08:50:15 STEM PROCESSING MACHINE OPERATOR 02/08 CPT-91735 Abx/Therapy Injection 08:50:15 STEM PROCESSING MACHINE OPERATOR CPT-Cryo Cryotherapy 10:19:35 STEM PROCESSING MACHINE OPERATOR CPT-000 Give Appropriate Flu Vaccine 09:22:16 CDT CPT-J3420 Vitamin B12 1000mcg (Cyanocobalamin) 19:08:57 CDT 01/11 CPT-07231 Abx/Therapy Injection 19:08:57 CDT CPT-J3420 Vitamin B12 1000mcg (Cyanocobalamin) 08:19:08 CDT 12/11 CPT-74526 Abx/Therapy Injection 08:19:08 CDT CPT-J3420 Vitamin B12 1000mcg (Cyanocobalamin) 14:48:00 CDT 11/09 CPT-03843 Abx/Therapy Injection 14:47:59 CDT CPT-J3420 Vitamin B12 1000mcg (Cyanocobalamin) 08:34:04 CDT 10/09 CPT-95736 Abx/Therapy Injection 08:34:04 CDT CPT-J3420 Vitamin B12 1000mcg (Cyanocobalamin) 09:18:52 CDT 09/11 CPT-76311 Abx/Therapy Injection 09:18:52 CDT CPT-J3420 Vitamin B12 1000mcg (Cyanocobalamin) 08:35:44 CDT 09/04 CPT-28222 Abx/Therapy Injection 08:35:44 CDT CPT-56800 Immunization Single Admin 11:07:16 CDT CPT-07404 Hepatitis B adult IM 11:07:16 CDT CPT-J3420 Vitamin B12 1000mcg (Cyanocobalamin) 11:00:49 CDT 08/28 CPT-J1040 Depo Medrol 80 mg (Methyl Prednisolone Acetate) 11:00: 49 CDT CPT-34493 Abx/Therapy Injection 11:00:49 CDT CPT-J1040 Depo Medrol 80 mg (Methyl Prednisolone Acetate) 09:16: 23 CDT CPT-J3420 Vitamin B12 1000mcg (Cyanocobalamin) 08:27:05 CDT 08/20 CPT-78606 Abx/Therapy Injection 08:27:05 CDT CPT-62838 Recombivax HB Injection Suspension 5 MCG/0.5ML 10:00:41 CDT CPT-77427 Administration single or combination vaccine inc oral 10 :00:41 CDT CPT-19570 Sono transvag pelvis non OB uterus ovaries cervix 16:36: 57 CDT CPT-06480 LS spine comp w obliq 09:50:55 STEM PROCESSING MACHINE OPERATOR CPT-60435 Abd compl w upright 09:50:55 STEM PROCESSING MACHINE OPERATOR CPT-J1100 Decadron 4mg (Dexamethasone) 15:51:24 STEM PROCESSING MACHINE OPERATOR CPT-J1030 Depo Medrol 40 mg (Methyl Prednisolone Acetate) 15:51: 24 STEM PROCESSING MACHINE OPERATOR CPT-60522 Abx/Therapy Injection 15:51:24 STEM PROCESSING MACHINE OPERATOR CPT-J1100 Decadron 4mg (Dexamethasone) 15:26:33 STEM PROCESSING MACHINE OPERATOR CPT-J1030 Depo Medrol 40 mg (Methyl Prednisolone Acetate) 15:26: 33 STEM PROCESSING MACHINE OPERATOR CPT-67268 Sono retroperitoneal complete kidneys and bladder 17:15: 30 CDT CPT-93999 Abd compl w upright 16:09:25 CDT CPT-J1100 Decadron 8mg (Dexamethasone) 17:07:57 CDT CPT-14460 Abx/Therapy Injection 17:07:57 CDT CPT-J1100 Decadron 8mg (Dexamethasone) 16:55:24 CDT CPT-45395 Chest 2V Frontal and Lat 16:32:44 CDT
--- OUTSIDE RECORDS SUMMARY | 2016-12-29 14:51 | XMS REPORT ---
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 4217940 Problem Severe manic bipolar I disorder with psychotic features F31.2 Active 24792116 Problem Bipolar I disorder, most recent episode depressed, severe with psychotic features F31.5 Active 267311748 Problem Type 2 diabetes mellitus without complication, without long-term current use of insulin E11.9 Active 435938418 Problem ADHD (attention deficit hyperactivity disorder), combined type F90.2 Active 86525288 Problem Constipation, unspecified constipation type K59.00 Active 59865014 Problem Essential hypertension I10 Active 76068938 ALLERGIES Substance Reaction Event Type Date Status Fanapt Unknown Drug Allergy May, Active Seroquel Unknown Drug Allergy May, Active Penicillin V Potassium Unknown Drug Allergy May, Active Augmentin Unknown Drug Allergy May, Active Amitriptyline HCl Unknown Drug Allergy May, Active SOCIAL HISTORY Never Assessed PLAN OF CARE Activity Details Follow Up patient needs to return for exam only (BWX taken 05-29-16) Reason: VITAL SIGNS Blood pressure systolic 106 mmHg 2016-05-29 Blood pressure diastolic 70 mmHg 2016-05-29 MEDICATIONS Medication Instructions Dosage Frequency Start Date End Date Duration Status Zantac Active Gabapentin Active Tizanidine HCl Active Vyvanse Active Sumatriptan Active Prazosin HCl Active Prilosec Active Lamictal Active Risperidone Active RESULTS No Results PROCEDURES Procedure Date Ordered Result Body Site BITEWINGS - FOUR FILMS May 29, 2016 PROPHYLAXIS - ADULT May 29, 2016 IMMUNIZATIONS No Known Immunizations MEDICAL (GENERAL) HISTORY Type Description Date Medical History hypertension Medical History asthma Medical History sinus tachycardia treadmill age [address] Elsie GÓMEZ [facility] Medical History arthritis Medical History Chronic Back pain - [facility] Dr Emanuel Carrillo (Pain mgmt) Medical History migraines - Neurologist- Dr Lopez in [place] Medical History occular spasms Medical History degenerative disc disease Medical History spinal stenosis Medical History herniated disc Medical History bulging disc(s) Medical History Anxiety disorder Medical History schizoaffective disorder Medical History PTSD Medical History ADHD (Adult onset) Medical History sleep apnea- Uses CPAP Machine Medical History Pre-diabetes Medical History Fractured back thinks lumbar compression fx age 21 2006 Surgical History appendectomy Surgical History cholecystectomy Surgical History Fusion of Lumbar Spine Surgical History carpal tunnel release-bilateral Surgical History Right ulnar nerve anterior movement 09/2016 Surgical History Cyst removal off of left cheek Age 13 Surgical History 2 tumors removed- left upper abdomen (Lipomas) Surgical History Lipoma removed left elbow Surgical History EGD (GERD) and Colonosocpy (fissure and internal hem) 2008 Hospitalization History hospitilized for migraine headache Hospitalization History back surgery Hospitalization History pseudoseizures 2014
--- OUTSIDE RECORDS SUMMARY | 2016-12-29 16:09 | XMS REPORT | Clinical Summary ---
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 Juliet Kimbrough THERAPY TECH Dependence on other enabling machines and devices [...] Active Ahmet Carbajal MD Generalized anxiety disorder Community Planning Technician well woman exam V72.31 Resolved Suzan [...] for closed fracture ICD-823.01 Inactive Suzan Boo THERAPY TECH Vaginal discharge ICD-623.5 Inactive Suzan Boo THERAPY TECH DYSURIA ICD-788.1 Inactive Suzan Boo THERAPY TECH Cellulitis and abscess of breast ICD-611.0 Inactive Ahmet Carbajal MD Nondisplaced transverse fracture of shaft of left fibula, subsequent encounter for closed fracture with routine healing Inactive Suzan Boo THERAPY TECH Bronchitis, acute ICD-466.0 Inactive Ahmet Carbajal MD Community Planning Technician well woman exam ICD-V72.31 Inactive Suzan Boo THERAPY TECH Bronchitis, acute with mild bronchospasm ICD-466.0 Inactive Suzan Boo THERAPY TECH Tracheitis ICD-464.10 Inactive Suzan Boo THERAPY TECH Impetigo ICD-684 Inactive Suzan Boo THERAPY TECH Furuncle of buttock ICD-680.5 Inactive Suzan Boo THERAPY TECH Vaginal irritation ICD-623.9 Inactive Suzan Boo THERAPY TECH Scalding pain on urination ICD-788.1 Inactive Suzan Boo THERAPY TECH Abdominal pain, right upper quadrant ICD-789.01 Inactive Suzan Boo THERAPY TECH Dark urine ICD-791.9 Inactive Suzan Boo THERAPY TECH Preop exam ICD-V72.84 Inactive Suzan Boo APRN Medication List Medication Instructions Start Date Stop Date Generic Name NDC Status Provider Patient Instruction JANUVIA 100 MG TABS Take one by mouth daily SITAGLIPTIN PHOSPHATE 91855626622 Active Malharvey Ziglari LEVER TENDER Active METFORMIN HCL 500 MG [id number] one a day for a week, then 2 a day METFORMIN HCL 68573737019 Active Maliheh Ziglari LEVER TENDER Active NYSTATIN 203358 UNIT/GM CREA apply three times a day to yeast rash NYSTATIN 59705511734 No Longer Active Maliheh Ziglari LEVER TENDER Active BACTRIM DS 800-160 MG TABS 1 twice a day SULFAMETHOXAZOLE-TRIMETHOPRIM 74310108380 No Longer Active Maliheh Ziglari LEVER TENDER Active MUPIROCIN 2 % OINT apply twice a day MUPIROCIN 82501642528 Active Suzan Boo APRN Active [id number] 50-325-40 MG TABS 1 to 2 four times a day as needed for headache [id number] 11895033301 Active Suzan Boo APRN Active METOCLOPRAMIDE HCL 10 MG TABS 1 two times as needed for nausea and headaches METOCLOPRAMIDE HCL 96608512111 Active Meena Ortiz MA Active AMITIZA 24 MCG ORAL CAPS one capsule twice daily LUBIPROSTONE 42716467929 Active Suzan Boo APRN Active MIRALAX ORAL POWD 17GMS DAILY IN WATER POLYETHYLENE GLYCOL 3350 66385501506 No Longer Active Suzan Boo APRN Active LACTULOSE 10 GM/15ML ORAL SOLN 30mL oral BID for IBS-C LACTULOSE 90041992242 No Longer Active Suzan Boo APRN Active BACTRIM DS 800-160 MG TAB Take one (1) tablet by mouth twice a day for 5 days TRIMETHOPRIM-SULFAMETHOXAZOLE 61619092437 No Longer Active Suzan Boo APRN Active MUPIROCIN 2 % OINT apply twice a day MUPIROCIN 09123017042 No Longer Active Suzan Boo APRN Active BACTRIM DS 800-160 MG TABS 1 twice a day SULFAMETHOXAZOLE-TRIMETHOPRIM 94917766849 No Longer Active Suzan Boo APRN Active DIFLUCAN 150 MG TABS 1 by mouth for yeast FLUCONAZOLE 96108764089 No Longer Active Suzan Boo APRN Active LINZESS 290 MCG ORAL CAPS 1 tab 30 min prior to first meal each day. LINACLOTIDE 87875249855 No Longer Active Sheila Calderon LPN Active AMITIZA 8 MCG ORAL CAPS 1 tab BID LUBIPROSTONE 36651615856 No Longer Active Lynda Xiao LPN Active TESSALON PERLES 100 MG CAPS 1 three times a day as needed for cough BENZONATATE 45295415959 No Longer Active Suzan Boo APRN Active BACTRIM DS 800-160 MG TABS 1 twice a day SULFAMETHOXAZOLE-TRIMETHOPRIM 04353143680 No Longer Active Suzan Boo APRN Active DIFLUCAN 150 MG TABS 1 by mouth for yeast FLUCONAZOLE 43782243732 No Longer Active Suzan Boo APRN Active EQ NICOTINE 21 MG/24HR TRANS PT24 Apply daily to stop smoking NICOTINE 12581009750 No Longer Active Suzan Boo APRN Active PREDNISONE 10 MG TABS 2 daily for 5 days then 1 daily for 5 days PREDNISONE 25379524358 No Longer Active Suzan Boo APRN Active LEVAQUIN 500 MG TABS 1 daily for infection LEVOFLOXACIN 01927563237 No Longer Active Suzan Boo APRN Active TROPICAMIDE 0.5 % OPHTH SOLN 1 drop PRN eye spasms TROPICAMIDE 00280648772 No Longer Active Suzan Boo APRN Active PREDNISONE 20 MG TAB 1 tablet daily x 4 days PREDNISONE 25458506714 No Longer Active Suzan Boo APRN Active ACETAMINOPHEN-CODEINE 120-12 MG/5ML SOLN 5 ml by mouth every 4-6 hours if needed for cough ACETAMINOPHEN-CODEINE 25989404499 No Longer Active Suzan Boo APRN Active KEFLEX 500 MG CAP 1 po qid CEPHALEXIN 33335248865 No Longer Active Suzan Boo APRN Active FLOVENT HFA 110 MCG/ACT AERO 2 puffs inhaled b.i.d. FLUTICASONE PROPIONATE HFA 49420378338 Active Renzo Thornton DO Active RISPERDAL 4 MG ORAL TABS 1 tab at bedtime RISPERIDONE 34970703292 Active Samantha Rothman RMA Active ZOFRAN 4 MG TABS 1 po q6hr PRN Nausea ONDANSETRON HCL No Longer Active Suzan Boo APRN Active FLUTICASONE PROPIONATE 50 MCG/ACT SUSP 2 sprays each nostril daily before bed. FLUTICASONE PROPIONATE 08286116516 No Longer Active Suzan Boo APRN Active ASPIRIN 325 MG ORAL TABS 1 tab q.d ASPIRIN 81034366034 No Longer Active Suzan Boo APRN Active HALOPERIDOL 10 MG ORAL TABS 1 tab q.d HALOPERIDOL 40796530454 No Longer Active Suzan Boo APRN Active GUAIFENESIN-CODEINE 100-10 MG/5ML SYRP 5ml every 4 to 6 hours as needed for cough GUAIFENESIN-CODEINE 04060545856 No Longer Active Suzan Boo APRN Active ZITHROMAX Z-EARNEST 250 MG TABS 2 today and then 1 daily for 4 days AZITHROMYCIN 24763629592 No Longer Active Suzan Boo APRN Active CLONAZEPAM 1 MG ORAL TABS 1 twice a day and an additional 1 tablet every other day as needed for pseudoseizures or anxiety CLONAZEPAM 44492519513 Active Suzan Boo APRN Active HYDROCODONE-ACETAMINOPHEN 5-325 MG ORAL TABS 1 tab two times a day HYDROCODONE-ACETAMINOPHEN 11228864833 No Longer Active Ahmet Carbajal MD Active LAMICTAL 100 MG ORAL TABS 1 tab 2 times qd. LAMOTRIGINE 99711890333 Active Ahmet Carbajal MD Active PREDNISONE 20 MG TABS 2 daily for 5 days then 1 daily for 5 days PREDNISONE 87326207864 No Longer Active Ahmet Carbajal MD Active FLUTICASONE PROPIONATE 50 MCG/ACT SUSP 1 to 2 sprays each nostril daily for allergies FLUTICASONE PROPIONATE 58464491480 Active Tila Valenzuela Active BENADRYL 25 MG CAP 4 po at bedtime for insomnia DIPHENHYDRAMINE HCL 81796466355 No Longer Active Ahmet Carbajal MD Active ADVAIR DISKUS 250-50 MCG/DOSE INH AEPB 1 puff twice a day for asthma FLUTICASONE-SALMETEROL 64577647287 No Longer Active Ahmet Carbajal MD Active KLONOPIN 1 MG ORAL TABS 1 tab po TID CLONAZEPAM 52517130974 No Longer Active Ahmet Carbajal MD Active ABILIFY MAINTENA 400 MG IM SUSR 400mg injection every 26 days ARIPIPRAZOLE 00092348306 No Longer Active Ahmet Carbajal MD Active TRAMADOL HCL 50 MG TABS 1/2-1 tab TID PRN TRAMADOL HCL 55033227947 No Longer Active Ahmet Carbajal MD Active BACTRIM DS 800-160 MG TABS 1 twice a day SULFAMETHOXAZOLE- TRIMETHOPRIM 43901615121 No Longer Active Ahmet Carbajal MD Active PROAIR HFA 108 (90 BASE) MCG/ACT AERS 2 puffs four times a day as needed 2015 ALBUTEROL SULFATE 90749458459 Active Honey Wensinainick THERAPY TECH Active MONISTAT 7 COMBO PACK WOODROW 100 & 2 MG-% (9GM) VAG KIT 1 applicatorful per vagina q pm x 7 MICONAZOLE NITRATE 58898255761 No Longer Active Ahmet Carbajal MD Active FLAGYL 500 MG TAB 1 tablet by mouth bid METRONIDAZOLE 62554088021 No Longer Active Ahmet Carbajal MD Active OXYCODONE HCL ER 10 MG ORAL T12A 1/2 tab by mouth every 4 hours prn OXYCODONE HCL 95640995210 No Longer Active Ahmet Carbajal MD Active METHYLPREDNISOLONE 4 MG ORAL TABS po daily METHYLPREDNISOLONE 25462649093 No Longer Active Ahmet Carbajal MD Active LEVOFLOXACIN 500 MG ORAL TABS po daily LEVOFLOXACIN 87898535943 No Longer Active Ahmet Carbajal MD Active VIIBRYD 10 MG ORAL TABS Take 1 tablet once a day VILAZODONE HCL 82026993030 No Longer Active Ahmet Carbajal MD Active TOPAMAX 50 MG ORAL TABS 1 tab twice daily TOPIRAMATE 82088903106 No Longer Active Ahmet Carbajal MD Active DICLOFENAC SODIUM 50 MG TBEC 1 tablet by mouth four times daily PRN Pain 2015 DICLOFENAC SODIUM 28889859117 No Longer Active Ahmet Carbajal MD Active ADZENYS XR-ODT 6.3 MG ORAL TBED 1 tab po daily for ADHD AMPHETAMINE 25714296545 No Longer Active Ahmet Carbajal MD Active CHANTIX 1 MG TABS 1 twice a day to help quit smoking VARENICLINE TARTRATE 68667742375 No Longer Active Dipika Burgos MD Active CHANTIX STARTING MONTH EARNEST 0.5 MG X 11 & 1 MG X 42 TABS take as directed 2015 VARENICLINE TARTRATE 63893207772 No Longer Active Dipika Burgos MD Active TESSALON PERLES 100 MG CAP 1 to 2 tablets by mouth 3 times daily as needed for cough BENZONATATE 40058389722 No Longer Active Luigi Martínez APRN Active IMITREX 50 MG ORAL TABS 0.5 po x 1 PRN Headache. May repeat dose x 1 in 2 hours if needed SUMATRIPTAN SUCCINATE 50504574543 Active TAMARA Casey Active HYDROCODONE-ACETAMINOPHEN 5-325 MG TABS 1 to 2 four times a day as needed for pain use until can be seen by specialist HYDROCODONE- ACETAMINOPHEN 71257574608 No Longer Active Vishal Hui MD Active PROAIR HFA 108 (90 BASE) MCG/ACT AERS 2 puffs four times a day as needed 2015 ALBUTEROL SULFATE 57437057071 No Longer Active Vishal Hui MD Active PREDNISONE 20 MG TABS 2 daily for 5 days then 1 daily for 5 days PREDNISONE 11003741455 No Longer Active Vishal Hui MD Active ZITHROMAX Z-EARNEST 250 MG TABS 2 today and then 1 daily for 4 days AZITHROMYCIN 81095626827 No Longer Active Vishal Hui MD Active DICLOFENAC POTASSIUM TABS Take 1 tablet twice a day (pt. is not sure of the dose.) DICLOFENAC POTASSIUM TABS 69481832393 No Longer Active Vishal Hui MD Active VERAPAMIL HCL ER 120 MG ORAL CR-TABS Take 1 tablet by mouth twice a day. VERAPAMIL HCL 64910883562 Active Vishal Hui MD Active FLAGYL 500 MG TAB 1 tablet by mouth bid METRONIDAZOLE 77545944856 No Longer Active Vishal Hui MD Active VALIUM 5 MG TAB Take 1-2 tablets daily DIAZEPAM 25524436671 No Longer Active Fabiola Johnson APRN Active METOPROLOL TARTRATE 25 MG ORAL TABS 1/2 tablet twice daily for heart rate and blood pressure METOPROLOL TARTRATE 55370583495 No Longer Active Fabiola Johnson APRN Active MIRALAX PACK 1 po qd PRN Constipation POLYETHYLENE GLYCOL 3350 83293479019 No Longer Active Ahmet Carbajal MD Active MINIPRESS 2 MG CAPS 4 cap po at night PRAZOSIN HCL 96282119579 No Longer Active Ahmet Carbajal MD Active PIROXICAM 20 MG CAPS 1 cap po qd PRN Pain PIROXICAM 43469120641 No Longer Active Ahmet Carbajal MD Active TRAMADOL HCL 50 MG TABS 1-2 po TID PRN Pain TRAMADOL HCL 32993353476 No Longer Active Ahmet Carbajal MD Active METOPROLOL TARTRATE 50 MG TAB 1 po bid METOPROLOL TARTRATE 64016584855 No Longer Active Ahmet Carbajal MD Active ABILIFY 15 MG ORAL TABS 1 tab daily ARIPIPRAZOLE 53597341492 No Longer Active Ahmet Carbajal MD Active PROZAC 20 MG ORAL CAPS 1 tab daily FLUOXETINE HCL 57929763443 No Longer Active Ahmet Carbajal MD Active AMBIEN 5 MG ORAL TABS 1 tab at bedtime ZOLPIDEM TARTRATE 89371710282 No Longer Active Ahmet Carbjaal MD Active PREDNISONE 20 MG TAB 2 tabs daily for 4 days, 1 tab daily for 4 days, 1/2 tab daily for 4 days PREDNISONE 40243667351 No Longer Active Ahmet Carbajal MD Active KEFLEX 500 MG CAP 1 po TID x 10 days CEPHALEXIN 85154083137 No Longer Active Vishal Hui MD Active SAPHRIS 5 MG SUBL 1 po bid ASENAPINE MALEATE 48548718982 No Longer Active Luigi Martínez APRN Active LATUDA 80 MG TABS Take one by mouth daily LURASIDONE HCL 10661561941 No Longer Active Pacollina Mauricio NORIEGA Active AMLODIPINE BESYLATE 5 MG TABS 1 tablet by mouth daily AMLODIPINE BESYLATE 92873460473 No Longer Active Pacolljanee Martínez APRN Active AMITRIPTYLINE HCL 100 MG TAB one at hs AMITRIPTYLINE HCL 46536055920 No Longer Active Vishal Hui MD Active TRAZODONE HCL 100 MG TAB take 1 at bedtime TRAZODONE HCL 21323111036 No Longer Active Vishal Hui MD Active VYVANSE 40 MG CAPS 1 daily, LISDEXAMFETAMINE DIMESYLATE 29424858917 No Longer Active Vishal Hui MD Active IBUPROFEN 600 MG TAB 1 po TID PRN IBUPROFEN 08175886895 No Longer Active Vishal Hui MD Active PROZAC 20 MG CAP Take one by mouth daily FLUOXETINE HCL 16980737055 No Longer Active Vishal Hui MD Active BACTRIM DS 800-160 MG TABS 1 pill by mouth twice daily SULFAMETHOXAZOLE-TRIMETHOPRIM 66450288946 No Longer Active Sahara Rodriguez MD PhD Active DIFLUCAN 150 MG TAB 1 tablet by mouth daily FLUCONAZOLE 18669635321 No Longer Active Vishal Hui MD Active TIZANIDINE HCL 4 MG TABS 1 po q6hr PRN Muscle Spasm/Back Pain TIZANIDINE HCL 86569645125 Active TAMARA Casey Active CLINDAMYCIN HCL 150 MG CAPS 1 four times a day CLINDAMYCIN HCL 16274362548 No Longer Active Neeraj Collins MD Active KEFLEX 500 MG ORAL CAPS 1 cap QID by mouth CEPHALEXIN 65631266159 No Longer Active Neeraj Collins MD Active DIFLUCAN 150 MG TABS 1 pill every other day x 2 doses FLUCONAZOLE 24152464648 No Longer Active Sahara Rodriguez MD PhD Active MELATONIN 3 MG CAPS 2 po q hs MELATONIN 91057010051 No Longer Active Sahara Rodriguez MD PhD Active MULTIVITAMINS CAPS Take one by mouth daily MULTIPLE VITAMIN 44034939121 No Longer Active Sahara Rodriguez MD PhD Active BACTRIM DS 800-160 MG TAB 1 tab by mouth twice daily TRIMETHOPRIM-SULFAMETHOXAZOLE 35492849716 No Longer Active Sahara Rodriguez MD PhD Active [facility] PROBIOTIC ORAL CHEW 2 daily po PROBIOTIC PRODUCT 28377541679 No Longer Active Sahara Rodriguez MD PhD Active BACTRIM DS 800-160 MG TABS 1 po BID x 7 days SULFAMETHOXAZOLE-TRIMETHOPRIM 91185044373 No Longer Active Vishal Hui MD Active CHANTIX STARTING MONTH EARNEST 0.5 MG X 11 & 1 MG X 42 TABS 0.5mg daily for 3 days , then 0.5mg BID for 4 days, then 1mg BID VARENICLINE TARTRATE 62894742216 No Longer Active TAMARA Gray Active VERAPAMIL HCL CR 120 MG TAB CR 1 po bid VERAPAMIL HCL 40003305954 No Longer Active Vishal Hui MD Active METOPROLOL SUCCINATE 50 MG TB24 1 tablet by mouth daily METOPROLOL SUCCINATE 88250840017 No Longer Active Vishal Hui MD Active SAPHRIS 10 MG SUBL 1 tab po bid ASENAPINE MALEATE 94494604177 No Longer Active Vishal Hui MD Active LISINOPRIL 20 MG TABS 1 tab po qd LISINOPRIL 85562456867 No Longer Active Vishal Hui MD Active LATUDA 20 MG TABS Take one by mouth daily LURASIDONE HCL 17343052402 No Longer Active Vishal Hui MD Active TRAZODONE HCL 50 MG TABS 1/2 tab po qd prn for anxiety TRAZODONE HCL 42145950800 No Longer Active Vishal Hui MD Active OMEPRAZOLE 20 MG TBEC 1 po q a.m. 30min prior to first food intake OMEPRAZOLE 33745605986 Active TAMARA Casey Active RANITIDINE HCL 150 MG CAPS 1 twice a day RANITIDINE HCL 25582594233 Active Lynda Xiao LPN Active LINZESS 290 MCG CAPS Take one by mouth daily LINACLOTIDE 98153585511 No Longer Active Vishal Hui MD Active SAPHRIS 5 MG SUBL 1 tab po qd ASENAPINE MALEATE 56692224167 No Longer Active Vishal Hui MD Active ZALEPLON 10 MG CAPS 1 cap po every other night ZALEPLON 88205525890 No Longer Active Vishal Hui MD Active LYRICA 50 MG CAPS 1 tab po TID PREGABALIN 32384674319 No Longer Active Vishal Hui MD Active LORATADINE 10 MG TABS 1 tab po qd LORATADINE 73368085971 No Longer Active Vishal Hui MD Active VERAPAMIL HCL ER 180 MG CR-TABS 1 tab po bid VERAPAMIL HCL 49294530621 No Longer Active Vishal Hui MD Active MIRALAX POWD 1 capfull once daily POLYETHYLENE GLYCOL 3350 05415900192 No Longer Active Vishal Hui MD Active PREDNISONE 20 MG TABS 1 tab po qd PREDNISONE 38827819116 No Longer Active Renzo Thornton DO Active LEVOFLOXACIN 500 MG TABS 1 tab po qd LEVOFLOXACIN 37402356013 No Longer Active Renzo Thornton DO Active BUSPIRONE HCL 15 MG TABS 1 tab po TID BUSPIRONE HCL 36420276298 No Longer Active Renzo Thornton DO Active BENZTROPINE MESYLATE 1 MG TABS 1 tab po qd BENZTROPINE MESYLATE 30340604408 No Longer Active Renzo Thornton DO Active ATENOLOL 25 MG TABS 1 tab po qd ATENOLOL 41021840937 No Longer Active Renzo Thornton DO Active ESCITALOPRAM OXALATE 20 MG TABS 1 tab po qd ESCITALOPRAM OXALATE 35232289827 No Longer Active Renzo Thornton DO Active ADVAIR DISKUS 250-50 MCG/DOSE AEPB 1 puff BID FLUTICASONE-SALMETEROL 17392641530 No Longer Active Renzo Thornton DO Active PREDNISONE 20 MG TAB 2 tabs daily for 3 days, 1 tab daily for 3 days, 1/2 tab daily for 2 days PREDNISONE 99292187390 No Longer Active Vishal Hui MD Active CEFDINIR 300 MG CAPS by mouth twice a day CEFDINIR 66385620113 No Longer Active Vishal Hui MD Active LANSOPRAZOLE 30 MG CPDR 1 cap po qd LANSOPRAZOLE 13388956802 No Longer Active Vishal Hui MD Active BACLOFEN 20 MG TABS 1 tab po tid BACLOFEN 16097860468 No Longer Active Vishal Hui MD Active ADVAIR DISKUS 250-50 MCG/DOSE AEPB 1 puff BID ADVAIR DISKUS 250-50 MCG/DOSE AEPB FLUTICASONE-SALMETEROL Inactive ESCITALOPRAM OXALATE 20 MG TABS 1 tab po qd ESCITALOPRAM OXALATE 20 MG TABS 171863 ESCITALOPRAM OXALATE Inactive ATENOLOL 25 MG TABS 1 tab po qd ATENOLOL 25 MG TABS 215598 ATENOLOL Inactive BENZTROPINE MESYLATE 1 MG TABS 1 tab po qd BENZTROPINE MESYLATE 1 MG TABS 313848 BENZTROPINE MESYLATE Inactive BUSPIRONE HCL 15 MG TABS 1 tab po TID BUSPIRONE HCL 15 MG TABS 936731 BUSPIRONE HCL Inactive LEVOFLOXACIN 500 MG TABS 1 tab po qd LEVOFLOXACIN 500 MG TABS 924629 LEVOFLOXACIN Inactive PREDNISONE 20 MG TABS 1 tab po qd PREDNISONE 20 MG TABS 797257 PREDNISONE Inactive MIRALAX POWD 1 capfull once daily MIRALAX POWD 672342 POLYETHYLENE GLYCOL 3350 Inactive VERAPAMIL HCL ER 180 MG CR-TABS 1 tab po bid VERAPAMIL HCL ER 180 MG CR-TABS VERAPAMIL HCL Inactive LORATADINE 10 MG TABS 1 tab po qd LORATADINE 10 MG TABS 838469 LORATADINE Inactive LYRICA 50 MG CAPS 1 tab po TID LYRICA 50 MG CAPS PREGABALIN Inactive ZALEPLON 10 MG CAPS 1 cap po every other night ZALEPLON 10 MG CAPS 833607 ZALEPLON Inactive SAPHRIS 5 MG SUBL 1 tab po qd SAPHRIS 5 MG SUBL ASENAPINE MALEATE Inactive TRAZODONE HCL 50 MG TABS 1/2 tab po qd prn for anxiety TRAZODONE HCL 50 MG TABS 145692 TRAZODONE HCL Inactive LATUDA 20 MG TABS Take one by mouth daily LATUDA 20 MG TABS LURASIDONE HCL Inactive LISINOPRIL 20 MG TABS 1 tab po qd LISINOPRIL 20 MG TABS 871254 LISINOPRIL Inactive SAPHRIS 10 MG SUBL 1 [...] twice daily BACTRIM DS 800-160 MG TAB 083371 TRIMETHOPRIM-SULFAMETHOXAZOLE Inactive MULTIVITAMINS CAPS Take one by mouth daily MULTIVITAMINS CAPS MULTIPLE VITAMIN Inactive MELATONIN 3 MG CAPS 2 po q hs MELATONIN 3 MG CAPS 720267 MELATONIN Inactive KEFLEX 500 MG ORAL CAPS 1 cap QID by mouth KEFLEX 500 MG ORAL CAPS 010306 CEPHALEXIN Inactive CLINDAMYCIN HCL 150 MG CAPS 1 four times a day CLINDAMYCIN HCL 150 MG CAPS 932586 CLINDAMYCIN HCL Inactive DIFLUCAN 150 MG TAB 1 tablet by mouth daily DIFLUCAN 150 MG TAB 170720 FLUCONAZOLE Inactive PROZAC 20 MG CAP Take one by mouth daily PROZAC 20 MG CAP 914787 FLUOXETINE HCL Inactive IBUPROFEN 600 MG TAB 1 po TID PRN IBUPROFEN 600 MG TAB 255879 IBUPROFEN Inactive VYVANSE 40 MG CAPS 1 daily, VYVANSE 40 MG CAPS LISDEXAMFETAMINE DIMESYLATE Inactive TRAZODONE HCL 100 MG TAB take 1 at bedtime TRAZODONE HCL 100 MG TAB 989659 TRAZODONE HCL Inactive AMITRIPTYLINE HCL 100 MG TAB one at hs AMITRIPTYLINE HCL 100 MG TAB 581647 AMITRIPTYLINE HCL Inactive AMLODIPINE BESYLATE 5 MG TABS 1 tablet by mouth daily AMLODIPINE BESYLATE 5 MG TABS 217758 AMLODIPINE BESYLATE Inactive LATUDA 80 MG TABS Take one by mouth daily LATUDA 80 MG TABS LURASIDONE HCL Inactive SAPHRIS 5 MG SUBL 1 po bid SAPHRIS 5 MG SUBL ASENAPINE MALEATE Inactive PREDNISONE 20 MG TAB 2 tabs daily for 4 days, 1 tab daily for 4 days, 1/2 tab daily for 4 days PREDNISONE 20 MG TAB 853821 PREDNISONE Inactive AMBIEN 5 MG ORAL TABS 1 tab at bedtime AMBIEN 5 MG ORAL TABS 087089 ZOLPIDEM TARTRATE Inactive PROZAC 20 MG ORAL CAPS 1 tab daily PROZAC 20 MG ORAL CAPS 367361 FLUOXETINE HCL Inactive ABILIFY 15 MG ORAL TABS 1 tab daily ABILIFY 15 MG ORAL TABS 729028 ARIPIPRAZOLE Inactive METOPROLOL TARTRATE 50 MG TAB 1 po bid METOPROLOL TARTRATE 50 MG TAB 711975 METOPROLOL TARTRATE Inactive TRAMADOL HCL 50 MG TABS 1-2 po TID PRN Pain TRAMADOL HCL 50 MG TABS 303696 TRAMADOL HCL Inactive PIROXICAM 20 MG CAPS 1 cap po qd PRN Pain PIROXICAM 20 MG CAPS 635781 PIROXICAM Inactive MINIPRESS 2 MG CAPS 4 cap po at night MINIPRESS 2 MG CAPS 199218 PRAZOSIN HCL Inactive MIRALAX PACK 1 po qd PRN Constipation MIRALAX PACK 537008 POLYETHYLENE GLYCOL 3350 Inactive METOPROLOL TARTRATE 25 MG ORAL TABS 1/2 tablet twice daily for heart rate and blood pressure METOPROLOL TARTRATE 25 MG ORAL TABS 672044 METOPROLOL TARTRATE Inactive VALIUM 5 MG TAB Take 1-2 tablets daily VALIUM 5 MG TAB 803190 DIAZEPAM Inactive FLAGYL 500 MG TAB 1 tablet by mouth bid FLAGYL 500 MG TAB 453199 METRONIDAZOLE Inactive DICLOFENAC POTASSIUM TABS Take 1 tablet twice a day (pt. is not sure of the dose.) DICLOFENAC POTASSIUM TABS DICLOFENAC POTASSIUM TABS Inactive ZITHROMAX Z-EARNEST 250 MG TABS 2 today and then 1 daily for 4 days ZITHROMAX Z-EARNEST 250 MG TABS 5617086 AZITHROMYCIN Inactive PREDNISONE 20 MG TABS 2 daily for 5 days then 1 daily for 5 days PREDNISONE 20 MG TABS 863650 PREDNISONE Inactive PROAIR HFA 108 (90 BASE) MCG/ACT AERS 2 puffs four times a day as needed 2015 PROAIR HFA 108 (90 BASE) MCG/ACT AERS ALBUTEROL SULFATE Inactive HYDROCODONE-ACETAMINOPHEN 5-325 MG TABS 1 to 2 four times a day as needed for pain use until can be seen by specialist HYDROCODONE- ACETAMINOPHEN 5-325 MG TABS 899074 HYDROCODONE-ACETAMINOPHEN Inactive TESSALON PERLES 100 MG CAP 1 to 2 tablets by mouth 3 times daily as needed for cough TESSALON PERLES 100 MG CAP 154123 BENZONATATE Inactive CHANTIX STARTING MONTH EARNEST 0.5 [...] Pain 2015 DICLOFENAC SODIUM 50 MG TBEC 323320 DICLOFENAC SODIUM Inactive TOPAMAX 50 MG ORAL TABS 1 tab twice daily TOPAMAX 50 MG ORAL TABS 063253 TOPIRAMATE Inactive VIIBRYD 10 MG ORAL TABS Take 1 tablet once a day VIIBRYD 10 MG ORAL TABS VILAZODONE HCL Inactive LEVOFLOXACIN 500 MG ORAL TABS po daily LEVOFLOXACIN 500 MG ORAL TABS 258249 LEVOFLOXACIN Inactive METHYLPREDNISOLONE 4 MG ORAL TABS po daily METHYLPREDNISOLONE 4 MG ORAL TABS 607364 METHYLPREDNISOLONE Inactive OXYCODONE HCL ER 10 MG ORAL T12A 1/2 tab by mouth every 4 hours prn OXYCODONE HCL ER 10 MG ORAL T12A OXYCODONE HCL Inactive FLAGYL 500 MG TAB 1 tablet by mouth bid FLAGYL 500 MG TAB 579235 METRONIDAZOLE Inactive MONISTAT 7 COMBO PACK WOODROW 100 & 2 MG-% (9GM) VAG KIT 1 applicatorful per vagina q pm x 7 MONISTAT 7 COMBO PACK WOODROW 100 & 2 MG-% (9GM) VAG KIT MICONAZOLE NITRATE Inactive BACTRIM DS 800-160 MG TABS 1 twice a day BACTRIM DS 800-160 MG TABS 373620 SULFAMETHOXAZOLE-TRIMETHOPRIM Inactive TRAMADOL HCL 50 MG TABS 1/2-1 tab TID PRN TRAMADOL HCL 50 MG TABS 774747 TRAMADOL HCL Inactive ABILIFY MAINTENA 400 MG IM SUSR 400mg injection every 26 days ABILIFY MAINTENA 400 MG IM SUSR ARIPIPRAZOLE Inactive KLONOPIN 1 MG ORAL TABS 1 tab po TID KLONOPIN 1 MG ORAL TABS 967024 CLONAZEPAM Inactive ADVAIR DISKUS 250-50 MCG/DOSE INH AEPB 1 puff twice a day for asthma ADVAIR DISKUS 250-50 MCG/DOSE INH AEPB FLUTICASONE- SALMETEROL Inactive BENADRYL 25 MG CAP 4 po at bedtime for insomnia BENADRYL 25 MG CAP DIPHENHYDRAMINE HCL Inactive PREDNISONE 20 MG TABS 2 daily for 5 days then 1 daily for 5 days PREDNISONE 20 MG TABS 176482 PREDNISONE Inactive HYDROCODONE-ACETAMINOPHEN 5-325 MG ORAL TABS 1 tab two times a day HYDROCODONE-ACETAMINOPHEN 5-325 MG ORAL TABS [id number] HYDROCODONE-ACETAMINOPHEN Inactive ZITHROMAX Z-EARNEST 250 MG TABS 2 today and then 1 daily for 4 days ZITHROMAX Z-EARNEST 250 MG TABS [id number] AZITHROMYCIN Inactive GUAIFENESIN-CODEINE 100-10 MG/5ML SYRP 5ml every 4 to 6 hours as needed for cough GUAIFENESIN-CODEINE 100-10 MG/5ML SYRP [id number] GUAIFENESIN-CODEINE Inactive HALOPERIDOL 10 MG ORAL TABS 1 tab q.d HALOPERIDOL 10 MG ORAL TABS [id number] HALOPERIDOL Inactive ASPIRIN 325 MG ORAL TABS 1 tab q.d ASPIRIN 325 MG ORAL TABS [id number] ASPIRIN Inactive FLUTICASONE PROPIONATE 50 MCG/ACT SUSP 2 sprays each nostril daily before bed. FLUTICASONE PROPIONATE 50 MCG/ACT SUSP [id number] FLUTICASONE PROPIONATE Inactive ZOFRAN 4 MG TABS 1 po q6hr PRN Nausea ZOFRAN 4 MG TABS [id number] ONDANSETRON HCL Inactive KEFLEX 500 MG CAP 1 po qid KEFLEX 500 MG CAP 217676 CEPHALEXIN Inactive ACETAMINOPHEN-CODEINE 120-12 MG/5ML SOLN 5 ml by mouth every 4-6 hours if needed for cough ACETAMINOPHEN-CODEINE 120-12 MG/5ML SOLN 884221 ACETAMINOPHEN-CODEINE Inactive PREDNISONE 20 MG TAB 1 tablet daily x 4 days PREDNISONE 20 MG TAB 997648 PREDNISONE Inactive TROPICAMIDE 0.5 % OPHTH SOLN 1 drop PRN eye spasms TROPICAMIDE 0.5 % OPHTH SOLN 201899 TROPICAMIDE Inactive LEVAQUIN 500 MG TABS 1 daily for infection LEVAQUIN 500 MG TABS 619460 LEVOFLOXACIN Inactive PREDNISONE 10 MG TABS 2 [...] for cough TESSALON PERLES 100 MG CAPS 962876 BENZONATATE Inactive AMITIZA 8 MCG ORAL CAPS 1 tab BID AMITIZA 8 MCG ORAL CAPS LUBIPROSTONE Inactive LINZESS 290 MCG ORAL CAPS 1 tab 30 min prior to first meal each day. LINZESS 290 MCG ORAL CAPS LINACLOTIDE Inactive DIFLUCAN 150 MG TABS 1 by mouth for yeast DIFLUCAN 150 MG TABS 796466 FLUCONAZOLE Inactive BACTRIM DS 800-160 MG TABS 1 twice a day BACTRIM DS 800-160 MG TABS 19820521 SULFAMETHOXAZOLE-TRIMETHOPRIM Inactive MUPIROCIN 2 % OINT apply twice a day MUPIROCIN 2 % OINT 922833 MUPIROCIN Inactive BACTRIM DS 800-160 MG TAB Take one (1) tablet by mouth twice a day for 5 days BACTRIM DS 800-160 MG TAB 143492 TRIMETHOPRIM- SULFAMETHOXAZOLE Inactive LACTULOSE 10 GM/15ML ORAL SOLN 30mL oral BID for IBS-C LACTULOSE 10 GM/15ML ORAL SOLN 548294 LACTULOSE Inactive MIRALAX ORAL POWD 17GMS DAILY IN WATER MIRALAX ORAL POWD 461009 POLYETHYLENE GLYCOL 3350 Inactive BACTRIM DS 800-160 MG TABS 1 twice a day BACTRIM DS 800-160 MG TABS 19820521 SULFAMETHOXAZOLE-TRIMETHOPRIM Inactive NYSTATIN 730298 UNIT/GM CREA apply three times a day to yeast rash NYSTATIN 275521 UNIT/GM CREA 418111 NYSTATIN Inactive CEFDINIR 300 MG CAPS by mouth twice a day CEFDINIR 300 MG CAPS 490771 CEFDINIR Inactive PREDNISONE 20 MG TAB 2 tabs daily for 3 days, 1 tab daily for 3 days, 1/2 tab daily for 2 days PREDNISONE 20 MG TAB 943618 PREDNISONE Inactive BACTRIM DS 800-160 MG TABS 1 po BID x 7 days BACTRIM DS 800-160 MG TABS 19820521 SULFAMETHOXAZOLE-TRIMETHOPRIM Inactive DIFLUCAN 150 MG TABS 1 pill every other day x 2 doses DIFLUCAN 150 MG TABS 166909 FLUCONAZOLE Inactive BACTRIM DS 800-160 MG TABS 1 pill by mouth twice daily BACTRIM DS 800-160 MG TABS 19820521 SULFAMETHOXAZOLE-TRIMETHOPRIM Inactive KEFLEX 500 MG CAP 1 po TID x 10 days KEFLEX 500 MG CAP 069774 CEPHALEXIN Inactive Advance Directives Directive Description Start [...] % 11.0-15.0 platelet count 443 THOUSAND/UL 10*3/mm3 905-146 3211/03/01 mean platelet volume 8.2 fL 7.5-12.5 leukocyte [...] % 11.0-15.0 platelet count 349 THOUSAND/UL 10*3/mm3 839-721 6336/04/12 mean platelet volume 8.4 fL 7.5-12.5 Lab Report: CBC W/DIFF, Comp. Metabolic Panel, HGBA1C, Magnesium - Chemistry sodium, serum 141 mmol/L 597-383 9175/07/24 carbon dioxide, venous blood 27.8 mmol/L 21.0-32.0 [...] 369 10^3/MM^3 10*3/mm3 142-424 Lab Report: Chlamydia/GC APTIMA/92659 - Lab chlamydia DNA probe NOT DETECTED NOT DETECTED Lab Report: Chlamydia/GC APTIMA/24007 - Microbiology Neisseria gonorrhoeae DNA probe NOT DETECTED NOT DETECTED Lab Report: Chlamydia/GC APTIMA/82215, Urinalysis, Complete, with Reflex ... - Lab chlamydia DNA probe NOT DETECTED NOT DETECTED Lab Report: Chlamydia/GC APTIMA/66368, Urinalysis, Complete, with Reflex ... - Microbiology Neisseria gonorrhoeae DNA probe NOT DETECTED NOT DETECTED Lab Report: Chlamydia/GC APTIMA/63630, Urinalysis, Complete, with Reflex ... - Urinalysis microalbumin/total urine volume 2 mg/L Units converted. See lab report for original value. microalbumin/creatinine ratio, urine 9 MCG/MG CREAT mg/L <30 Lab Report: Comp. Metabolic Panel - Chemistry sodium, serum 140 mmol/L 420-007 2549/06/28 carbon dioxide, venous blood 23.8 mmol/L 21.0-32.0 [...] negative Encounters Code Encounter Date Provider Facility CPT-20436 Level 5 Est. Patient 12:01:37 CDT Maude Miranda [facility] CPT-81530 Level 3 Est. Patient 11:36:47 CDT Suzan Jefferson [facility] CPT-79767 Level 3 Est. Patient 10:53:17 CDT Suzan Jefferson [facility] CPT-41299 Level 3 Est. Patient 11:08:35 CDT Suzan Jefferson [facility] CPT-51593 Level 3 Est. Patient 15:55:20 CDT Suzan Jefferson [facility] CPT-53381 Level 4 Est. Patient 10:49:34 CDT Suzan Jefferson [facility] CPT-63628 Level 3 Est. Patient 10:00:25 CDT Suzan Jefferson [facility] CPT-44791 Level 3 Est. Patient 10:29:30 CDT Suzan Jefferson [facility] CPT-22705 Level 3 Est. Patient 11:04:38 CDT Renzo Thornton [facility] CPT-06601 Level 3 Est. Patient 11:15:58 DIRECTOR CRITICAL CARE Renzo Thornton [facility] CPT-90108 Level 3 Est. Patient 15:28:23 DIRECTOR CRITICAL CARE Suzan Boo [facility] CPT-59083 Level 4 Est. Patient 10:20:54 DIRECTOR CRITICAL CARE Suzan Boo [facility] CPT-72961 Level 3 Est. Patient 11:47:37 DIRECTOR CRITICAL CARE Ahmet Carbajal MD [facility] CPT-33348 Level 3 Est. Patient 10:40:11 DIRECTOR CRITICAL CARE Ahmet Carbajal MD [facility] CPT-66369 Level 3 Est. Patient 15:07:06 DIRECTOR CRITICAL CARE Neeraj Collins MD [facility] CPT-93258 Level 4 Est. Patient 14:45:00 DIRECTOR CRITICAL CARE Ahmet Carbajal MD [facility] CPT-35190 Level 3 Est. Patient 13:59:59 CDT Luigi Martínez [facility] CPT-65832 Level 3 Est. Patient 18:18:53 CDT Neeraj Collins MD [facility] CPT-57946 Level 3 Est. Patient 15:50:44 CDT Vishal Hui MD [facility] CPT-12524 Level 3 Est. Patient 11:36:17 CDT Ahmet Carbajal MD [facility] CPT-12464 Level 3 Est. Patient 13:29:16 CDT Vishal Hui MD [facility] CPT-37735 Level 3 Est. Patient 14:27:52 CDT Neeraj Collins MD [facility] CPT-41556 Level 3 Est. Patient 08:56:03 CDT Luigi Martínez [facility] CPT-12833 Level 4 Est. Patient 12:11:48 CDT Fabiola Johnson [facility] CPT-27219 Level 3 New Patient 16:53:37 CDT Albert Caldera MD [facility] CPT-28871 Level 3 Est. Patient 11:25:49 CDT Renzo Thornton DO [facility] CPT-12676 Level 3 Est. Patient 15:22:01 CDT Ahmet Carbajal MD [facility] CPT-07367 Level 4 Est. Patient 09:00:51 DIRECTOR CRITICAL CARE Vishal Hui MD [facility] CPT-17820 Level 3 Est. Patient 11:37:33 DIRECTOR CRITICAL CARE Vishal Hui MD [facility] CPT-69822 Level 3 Est. Patient 08:41:09 DIRECTOR CRITICAL CARE Vishal Hui MD [facility] CPT-62085 Level 4 Est. Patient 10:19:35 DIRECTOR CRITICAL CARE Vishal Hui MD [facility] CPT-87643 Level 3 Est. Patient 13:35:45 CDT Vishal Hui MD [facility] CPT-05490 Level 4 Est. Patient 10:08:37 CDT Vishal Hui MD [facility] CPT-06354 Level 3 Est. Patient 11:22:10 CDT Vishal Hui MD [facility] CPT-45751 Level 3 Est. Patient 11:03:32 CDT Sahara Rodriguez MD, PhD [facility] CPT-33754 Level 3 Est. Patient 09:41:35 CDT Vishal Hui MD [facility] CPT-22936 Level 3 Est. Patient 12:00:41 CDT Neeraj Collins MD [facility] CPT-95145 Level 3 Est. Patient 09:16:24 CDT Vishal Hui MD [facility] CPT-60332 Level 4 Est. Patient 13:59:09 CDT Neeraj Collins MD [facility] CPT-92211 Level 3 Est. Patient 15:19:43 CDT Renzo Thornton [facility] CPT-69046 Level 3 Est. Patient 18:10:26 CDT Sahara Rodriguez MD PhD [facility] CPT-19281 Level 3 Est. Patient 14:49:50 CDT Vishal Hui MD [facility] CPT-00659 Level 4 Est. Patient 18:41:46 CDT Neeraj Collins MD [facility] CPT-97871 Level 4 Est. Patient 09:18:38 DIRECTOR CRITICAL CARE Vishal Hui MD [facility] CPT-39285 Level 3 Est. Patient 14:43:55 DIRECTOR CRITICAL CARE Vishal Hui MD [facility] CPT-97891 Level 3 Est. Patient 15:26:33 DIRECTOR CRITICAL CARE Sahara Rodriguez MD PhD [facility] CPT-01908 Level 3 Est. Patient 10:32:14 DIRECTOR CRITICAL CARE Vishal Hui MD [facility] CPT-67239 Level 3 Est. Patient 15:12:52 DIRECTOR CRITICAL CARE Vishal uHi MD [facility] CPT-59526 Level 4 Est. Patient 09:19:27 CDT Vishal Hui MD [facility] CPT-27037 Level 3 Est. Patient 15:53:00 CDT Renzo Thornton [facility] CPT-38555 Level 3 Est. Patient 15:50:30 CDT Renzo Thornton [facility] CPT-79838 Level 3 Est. Patient 16:55:24 CDT Vishal Hui MD [facility] Procedures Code Procedure Name Date Entry Date Standard Description CPT-62769 UA Dip Auto (Floor Use Only) 11:36:47 CDT CPT-30395 Venipuncture Draw Fee 10:53:17 CDT CPT-36167 EKG Trac and Interp - XRAY USE ONLY 15:59:30 CDT 09/13 CPT-48562 Chest 1V Frontal - XRAY USE ONLY 15:59:30 CDT CPT-00195 Venipuncture Draw Fee 15:44:02 CDT CPT-05814 Venipuncture Draw Fee 08:41:12 CDT CPT-10254 Abd compl w upright - XRAY USE ONLY 10:27:59 CDT 06/28 CPT-26324 Smoking Cessation counseling 11:15:58 DIRECTOR CRITICAL CARE CPT-G0439 Subsequent Annual Wellness Exam 09:30:58 DIRECTOR CRITICAL CARE CPT-13549 TSH - LAB USE ONLY 08:50:26 DIRECTOR CRITICAL CARE CPT-22254 CBC - LAB USE ONLY 08:50:26 DIRECTOR CRITICAL CARE CPT-91259 Venipuncture Draw Fee 08:50:26 DIRECTOR CRITICAL CARE CPT-65274 Abx/Therapy Injection 17:34:30 DIRECTOR CRITICAL CARE CPT-07577 Nexplanon Removal with Reinsertion 14:09:32 CDT CPT-J7307 Nexplanon (Implant) 14:09:32 CDT CPT-OV Office Visit 14:09:32 CDT CPT-48497 UA w micro - LAB USE ONLY 16:21:13 CDT CPT-80487 Wet Mount - LAB USE ONLY 16:21:13 CDT CPT-50959 First Vx - Ix admin for Medicare patients 14:37:47 CDT CPT-26496 Fluzone Preservative Free Intramuscular Suspension 14:37 :47 CDT CPT-71558 Abx/Therapy Injection 13:54:22 CDT CPT-67589 Abx/Therapy Injection 08:47:09 CDT CPT-42204 Abx/Therapy Injection 13:29:56 CDT CPT-10573 Abx/Therapy Injection 08:36:16 CDT CPT-28091 Wet Mount - LAB USE ONLY 17:44:58 CDT CPT-52565 UA w micro - LAB USE ONLY 17:44:58 CDT CPT-73659 CMP - LAB USE ONLY 17:44:58 CDT CPT-81466 Venipuncture Draw Fee 17:44:58 CDT CPT-90584 Cervical Min 4V - XRAY USE ONLY 09:01:40 CDT CPT-88379 Chest 2V Frontal and Lat - XRAY USE ONLY 11:06:31 CDT CPT-02263 EKG Trac and Interp - XRAY USE ONLY 11:31:43 CDT 08/26 CPT-J3420 Vitamin B12 1000mcg (Cyanocobalamin) 08:10:26 DIRECTOR CRITICAL CARE 04/12 CPT-21382 Abx/Therapy Injection 08:10:26 DIRECTOR CRITICAL CARE CPT-G0438 Initial Annual Wellness Exam 19:01:01 DIRECTOR CRITICAL CARE CPT-J3420 Vitamin B12 1000mcg (Cyanocobalamin) 16:57:46 CDT 08/14 CPT-49806 Recombivax HB Injection Suspension 5 MCG/0.5ML 08:37:50 DIRECTOR CRITICAL CARE CPT-08878 Immunization Single Admin 08:37:50 DIRECTOR CRITICAL CARE CPT-J3420 Vitamin B12 1000mcg (Cyanocobalamin) 08:32:16 DIRECTOR CRITICAL CARE 03/11 CPT-68355 Abx/Therapy Injection 08:32:16 DIRECTOR CRITICAL CARE CPT-81323 Chest 2V Frontal and Lat 11:46:38 DIRECTOR CRITICAL CARE CPT-02253 Venipuncture Draw Fee 09:12:45 DIRECTOR CRITICAL CARE CPT-J3420 Vitamin B12 1000mcg (Cyanocobalamin) 08:50:15 DIRECTOR CRITICAL CARE 02/08 CPT-07787 Abx/Therapy Injection 08:50:15 DIRECTOR CRITICAL CARE CPT-Cryo Cryotherapy 10:19:35 DIRECTOR CRITICAL CARE CPT-000 Give Appropriate Flu Vaccine 09:22:16 CDT CPT-J3420 Vitamin B12 1000mcg (Cyanocobalamin) 19:08:57 CDT 01/11 CPT-27291 Abx/Therapy Injection 19:08:57 CDT CPT-J3420 Vitamin B12 1000mcg (Cyanocobalamin) 08:19:08 CDT 12/11 CPT-96062 Abx/Therapy Injection 08:19:08 CDT CPT-J3420 Vitamin B12 1000mcg (Cyanocobalamin) 14:48:00 CDT 11/09 CPT-97370 Abx/Therapy Injection 14:47:59 CDT CPT-J3420 Vitamin B12 1000mcg (Cyanocobalamin) 08:34:04 CDT 10/09 CPT-89967 Abx/Therapy Injection 08:34:04 CDT CPT-J3420 Vitamin B12 1000mcg (Cyanocobalamin) 09:18:52 CDT 09/11 CPT-05615 Abx/Therapy Injection 09:18:52 CDT CPT-J3420 Vitamin B12 1000mcg (Cyanocobalamin) 08:35:44 CDT 09/04 CPT-70817 Abx/Therapy Injection 08:35:44 CDT CPT-40037 Immunization Single Admin 11:07:16 CDT CPT-75341 Hepatitis B adult IM 11:07:16 CDT CPT-J3420 Vitamin B12 1000mcg (Cyanocobalamin) 11:00:49 CDT 08/28 CPT-J1040 Depo Medrol 80 mg (Methyl Prednisolone Acetate) 11:00: 49 CDT CPT-27478 Abx/Therapy Injection 11:00:49 CDT CPT-J1040 Depo Medrol 80 mg (Methyl Prednisolone Acetate) 09:16: 23 CDT CPT-J3420 Vitamin B12 1000mcg (Cyanocobalamin) 08:27:05 CDT 08/20 CPT-60109 Abx/Therapy Injection 08:27:05 CDT CPT-53464 Recombivax HB Injection Suspension 5 MCG/0.5ML 10:00:41 CDT CPT-44343 Administration single or combination vaccine inc oral 10 :00:41 CDT CPT-02277 Sono transvag pelvis non OB uterus ovaries cervix 16:36: 57 CDT CPT-88909 LS spine comp w obliq 09:50:55 DIRECTOR CRITICAL CARE CPT-69102 Abd compl w upright 09:50:55 DIRECTOR CRITICAL CARE CPT-J1100 Decadron 4mg (Dexamethasone) 15:51:24 DIRECTOR CRITICAL CARE CPT-J1030 Depo Medrol 40 mg (Methyl Prednisolone Acetate) 15:51: 24 DIRECTOR CRITICAL CARE CPT-67634 Abx/Therapy Injection 15:51:24 DIRECTOR CRITICAL CARE CPT-J1100 Decadron 4mg (Dexamethasone) 15:26:33 DIRECTOR CRITICAL CARE CPT-J1030 Depo Medrol 40 mg (Methyl Prednisolone Acetate) 15:26: 33 DIRECTOR CRITICAL CARE CPT-35466 Sono retroperitoneal complete kidneys and bladder 17:15: 30 CDT CPT-28591 Abd compl w upright 16:09:25 CDT CPT-J1100 Decadron 8mg (Dexamethasone) 17:07:57 CDT CPT-72329 Abx/Therapy Injection 17:07:57 CDT CPT-J1100 Decadron 8mg (Dexamethasone) 16:55:24 CDT CPT-54975 Chest 2V Frontal and Lat 16:32:44 CDT
--- OUTSIDE RECORDS SUMMARY | 2016-12-29 16:30 | XMS REPORT | Clinical Summary ---
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.31 Resolved Suzan [...] for closed fracture ICD-823.01 Inactive Suzan Boo PHOTOENGRAVING PHOTOGRAPHER Vaginal discharge ICD-623.5 Inactive Suzan Boo PHOTOENGRAVING PHOTOGRAPHER DYSURIA ICD-788.1 Inactive Suzan Boo PHOTOENGRAVING PHOTOGRAPHER Cellulitis and abscess of breast ICD-611.0 Inactive Ahmet Carbajal MD Nondisplaced transverse fracture of shaft of left fibula, subsequent encounter for closed fracture with routine healing Inactive Suzan Boo PHOTOENGRAVING PHOTOGRAPHER Bronchitis, acute ICD-466.0 Inactive Ahmet Carbajal MD Agricultural Engineering Technician well woman exam ICD-V72.31 Inactive Suzan Boo PHOTOENGRAVING PHOTOGRAPHER Bronchitis, acute with mild bronchospasm ICD-466.0 Inactive Suzan Boo PHOTOENGRAVING PHOTOGRAPHER Tracheitis ICD-464.10 Inactive Suzan Boo PHOTOENGRAVING PHOTOGRAPHER Impetigo ICD-684 Inactive Suzan Boo PHOTOENGRAVING PHOTOGRAPHER Furuncle of buttock ICD-680.5 Inactive Suzan Boo PHOTOENGRAVING PHOTOGRAPHER Vaginal irritation ICD-623.9 Inactive Suzan Boo PHOTOENGRAVING PHOTOGRAPHER Scalding pain on urination ICD-788.1 Inactive Suzan Boo PHOTOENGRAVING PHOTOGRAPHER Abdominal pain, right upper quadrant ICD-789.01 Inactive Suzan Boo PHOTOENGRAVING PHOTOGRAPHER Dark urine ICD-791.9 Inactive Suzan Boo PHOTOENGRAVING PHOTOGRAPHER Preop exam ICD-V72.84 Inactive Suzan Boo APRN Medication List Medication Instructions Start Date Stop Date Generic Name NDC Status Provider Patient Instruction JANUVIA 100 MG TABS Take one by mouth daily SITAGLIPTIN PHOSPHATE 25212247992 Active Malharvey Ziglari SUPPORT MERCHANDISER Active METFORMIN HCL 500 MG [id number] one a day for a week, then 2 a day METFORMIN HCL 47287761185 Active Maliheh Ziglari SUPPORT MERCHANDISER Active NYSTATIN 451310 UNIT/GM CREA apply three times a day to yeast rash NYSTATIN 17609067050 No Longer Active Maliheh Ziglari SUPPORT MERCHANDISER Active BACTRIM DS 800-160 MG TABS 1 twice a day SULFAMETHOXAZOLE-TRIMETHOPRIM 41700914349 No Longer Active Maliheh Ziglari SUPPORT MERCHANDISER Active MUPIROCIN 2 % OINT apply twice a day MUPIROCIN 15029813294 Active Suzan Boo APRN Active [id number] 50-325-40 MG TABS 1 to 2 four times a day as needed for headache [id number] 85875139890 Active Suzan Boo APRN Active METOCLOPRAMIDE HCL 10 MG TABS 1 two times as needed for nausea and headaches METOCLOPRAMIDE HCL 49980377321 Active Meena Ortiz MA Active AMITIZA 24 MCG ORAL CAPS one capsule twice daily LUBIPROSTONE 07902156790 Active Suzan Boo APRN Active MIRALAX ORAL POWD 17GMS DAILY IN WATER POLYETHYLENE GLYCOL 3350 19568249766 No Longer Active Suzan Boo APRN Active LACTULOSE 10 GM/15ML ORAL SOLN 30mL oral BID for IBS-C LACTULOSE 13839673057 No Longer Active Suzan Boo APRN Active BACTRIM DS 800-160 MG TAB Take one (1) tablet by mouth twice a day for 5 days TRIMETHOPRIM-SULFAMETHOXAZOLE 91339746693 No Longer Active Suzan Boo APRN Active MUPIROCIN 2 % OINT apply twice a day MUPIROCIN 58105026541 No Longer Active Suzan Boo APRN Active BACTRIM DS 800-160 MG TABS 1 twice a day SULFAMETHOXAZOLE-TRIMETHOPRIM 46676878369 No Longer Active Suzan Boo APRN Active DIFLUCAN 150 MG TABS 1 by mouth for yeast FLUCONAZOLE 93446339374 No Longer Active Suzan Boo APRN Active LINZESS 290 MCG ORAL CAPS 1 tab 30 min prior to first meal each day. LINACLOTIDE 98448183556 No Longer Active Sheila Calderon LPN Active AMITIZA 8 MCG ORAL CAPS 1 tab BID LUBIPROSTONE 91459979314 No Longer Active Lynda Xiao LPN Active TESSALON PERLES 100 MG CAPS 1 three times a day as needed for cough BENZONATATE 83552154777 No Longer Active Suzan Boo APRN Active BACTRIM DS 800-160 MG TABS 1 twice a day SULFAMETHOXAZOLE-TRIMETHOPRIM 81505957509 No Longer Active Suzan Boo APRN Active DIFLUCAN 150 MG TABS 1 by mouth for yeast FLUCONAZOLE 10944788206 No Longer Active Suzan Boo APRN Active EQ NICOTINE 21 MG/24HR TRANS PT24 Apply daily to stop smoking NICOTINE 06067845911 No Longer Active Suzan Boo APRN Active PREDNISONE 10 MG TABS 2 daily for 5 days then 1 daily for 5 days PREDNISONE 38306358426 No Longer Active Suzan Boo APRN Active LEVAQUIN 500 MG TABS 1 daily for infection LEVOFLOXACIN 15691621367 No Longer Active Suzan Boo APRN Active TROPICAMIDE 0.5 % OPHTH SOLN 1 drop PRN eye spasms TROPICAMIDE 97452840759 No Longer Active Suzan Boo APRN Active PREDNISONE 20 MG TAB 1 tablet daily x 4 days PREDNISONE 65341304046 No Longer Active Suzan Boo APRN Active ACETAMINOPHEN-CODEINE 120-12 MG/5ML SOLN 5 ml by mouth every 4-6 hours if needed for cough ACETAMINOPHEN-CODEINE 06884157213 No Longer Active Suzan Boo APRN Active KEFLEX 500 MG CAP 1 po qid CEPHALEXIN 37535254342 No Longer Active Suzan Boo APRN Active FLOVENT HFA 110 MCG/ACT AERO 2 puffs inhaled b.i.d. FLUTICASONE PROPIONATE HFA 83741177186 Active Renzo Thornton DO Active RISPERDAL 4 MG ORAL TABS 1 tab at bedtime RISPERIDONE 67785461839 Active Samantha Rothman RMA Active ZOFRAN 4 MG TABS 1 po q6hr PRN Nausea ONDANSETRON HCL No Longer Active Suzan Boo APRN Active FLUTICASONE PROPIONATE 50 MCG/ACT SUSP 2 sprays each nostril daily before bed. FLUTICASONE PROPIONATE 96002382646 No Longer Active Suzan Boo APRN Active ASPIRIN 325 MG ORAL TABS 1 tab q.d ASPIRIN 67015869212 No Longer Active Suzan Boo APRN Active HALOPERIDOL 10 MG ORAL TABS 1 tab q.d HALOPERIDOL 62237910263 No Longer Active Suzan Boo APRN Active GUAIFENESIN-CODEINE 100-10 MG/5ML SYRP 5ml every 4 to 6 hours as needed for cough GUAIFENESIN-CODEINE 53277685793 No Longer Active Suzan Boo APRN Active ZITHROMAX Z-EARNEST 250 MG TABS 2 today and then 1 daily for 4 days AZITHROMYCIN 97382807916 No Longer Active Suzan Boo APRN Active CLONAZEPAM 1 MG ORAL TABS 1 twice a day and an additional 1 tablet every other day as needed for pseudoseizures or anxiety CLONAZEPAM 96843925436 Active Suzan Boo APRN Active HYDROCODONE-ACETAMINOPHEN 5-325 MG ORAL TABS 1 tab two times a day HYDROCODONE-ACETAMINOPHEN 20272551276 No Longer Active Ahmet Carbajal MD Active LAMICTAL 100 MG ORAL TABS 1 tab 2 times qd. LAMOTRIGINE 55065567656 Active Ahmet Carbajal MD Active PREDNISONE 20 MG TABS 2 daily for 5 days then 1 daily for 5 days PREDNISONE 56307111329 No Longer Active Ahmet Carbajal MD Active FLUTICASONE PROPIONATE 50 MCG/ACT SUSP 1 to 2 sprays each nostril daily for allergies FLUTICASONE PROPIONATE 31629682049 Active Tila Valenzuela Active BENADRYL 25 MG CAP 4 po at bedtime for insomnia DIPHENHYDRAMINE HCL 57324424451 No Longer Active Ahmet Carbajal MD Active ADVAIR DISKUS 250-50 MCG/DOSE INH AEPB 1 puff twice a day for asthma FLUTICASONE-SALMETEROL 12070182226 No Longer Active Ahmet Carbajal MD Active KLONOPIN 1 MG ORAL TABS 1 tab po TID CLONAZEPAM 42866727318 No Longer Active Ahmet Carbajal MD Active ABILIFY MAINTENA 400 MG IM SUSR 400mg injection every 26 days ARIPIPRAZOLE 89745652300 No Longer Active Ahmet Carbajal MD Active TRAMADOL HCL 50 MG TABS 1/2-1 tab TID PRN TRAMADOL HCL 27249481165 No Longer Active Ahmet Carbajal MD Active BACTRIM DS 800-160 MG TABS 1 twice a day SULFAMETHOXAZOLE- TRIMETHOPRIM 39941110109 No Longer Active Ahmet Carbajal MD Active PROAIR HFA 108 (90 BASE) MCG/ACT AERS 2 puffs four times a day as needed 2015 ALBUTEROL SULFATE 50176561999 Active Honey Wensinainick PHOTOENGRAVING PHOTOGRAPHER Active MONISTAT 7 COMBO PACK WOODROW 100 & 2 MG-% (9GM) VAG KIT 1 applicatorful per vagina q pm x 7 MICONAZOLE NITRATE 36551958606 No Longer Active Ahmet Carbajal MD Active FLAGYL 500 MG TAB 1 tablet by mouth bid METRONIDAZOLE 91547996464 No Longer Active Ahmet Carbajal MD Active OXYCODONE HCL ER 10 MG ORAL T12A 1/2 tab by mouth every 4 hours prn OXYCODONE HCL 95802411691 No Longer Active Ahmet Carbajal MD Active METHYLPREDNISOLONE 4 MG ORAL TABS po daily METHYLPREDNISOLONE 28025776349 No Longer Active Ahmet Carbajal MD Active LEVOFLOXACIN 500 MG ORAL TABS po daily LEVOFLOXACIN 48718017418 No Longer Active Ahmet Carbajal MD Active VIIBRYD 10 MG ORAL TABS Take 1 tablet once a day VILAZODONE HCL 61756752501 No Longer Active Ahmet Carbajal MD Active TOPAMAX 50 MG ORAL TABS 1 tab twice daily TOPIRAMATE 70249612438 No Longer Active Ahmet Carbajal MD Active DICLOFENAC SODIUM 50 MG TBEC 1 tablet by mouth four times daily PRN Pain 2015 DICLOFENAC SODIUM 34087360853 No Longer Active Ahmet Carbajal MD Active ADZENYS XR-ODT 6.3 MG ORAL TBED 1 tab po daily for ADHD AMPHETAMINE 78199321520 No Longer Active Ahmet Carbajal MD Active CHANTIX 1 MG TABS 1 twice a day to help quit smoking VARENICLINE TARTRATE 51257580257 No Longer Active Dipika Burgos MD Active CHANTIX STARTING MONTH EARNEST 0.5 MG X 11 & 1 MG X 42 TABS take as directed 2015 VARENICLINE TARTRATE 31521916773 No Longer Active Dipika Burgos MD Active TESSALON PERLES 100 MG CAP 1 to 2 tablets by mouth 3 times daily as needed for cough BENZONATATE 02435480579 No Longer Active Luigi Martínez APRN Active IMITREX 50 MG ORAL TABS 0.5 po x 1 PRN Headache. May repeat dose x 1 in 2 hours if needed SUMATRIPTAN SUCCINATE 23997636291 Active TAMARA Casey Active HYDROCODONE-ACETAMINOPHEN 5-325 MG TABS 1 to 2 four times a day as needed for pain use until can be seen by specialist HYDROCODONE- ACETAMINOPHEN 85552748656 No Longer Active Vishal Hui MD Active PROAIR HFA 108 (90 BASE) MCG/ACT AERS 2 puffs four times a day as needed 2015 ALBUTEROL SULFATE 10538499040 No Longer Active Vishal Hui MD Active PREDNISONE 20 MG TABS 2 daily for 5 days then 1 daily for 5 days PREDNISONE 68411262943 No Longer Active Vishal Hui MD Active ZITHROMAX Z-EARNEST 250 MG TABS 2 today and then 1 daily for 4 days AZITHROMYCIN 86633511770 No Longer Active Vishal Hui MD Active DICLOFENAC POTASSIUM TABS Take 1 tablet twice a day (pt. is not sure of the dose.) DICLOFENAC POTASSIUM TABS 63499460026 No Longer Active Vishal Hui MD Active VERAPAMIL HCL ER 120 MG ORAL CR-TABS Take 1 tablet by mouth twice a day. VERAPAMIL HCL 73102362740 Active Vishal Hui MD Active FLAGYL 500 MG TAB 1 tablet by mouth bid METRONIDAZOLE 15151119327 No Longer Active Vishal Hui MD Active VALIUM 5 MG TAB Take 1-2 tablets daily DIAZEPAM 14511356908 No Longer Active Fabiola Johnson APRN Active METOPROLOL TARTRATE 25 MG ORAL TABS 1/2 tablet twice daily for heart rate and blood pressure METOPROLOL TARTRATE 82882392725 No Longer Active Fabiola Johnson APRN Active MIRALAX PACK 1 po qd PRN Constipation POLYETHYLENE GLYCOL 3350 92824494096 No Longer Active Ahmet Carbajal MD Active MINIPRESS 2 MG CAPS 4 cap po at night PRAZOSIN HCL 73431593662 No Longer Active Ahmet Carbajal MD Active PIROXICAM 20 MG CAPS 1 cap po qd PRN Pain PIROXICAM 35790323864 No Longer Active Ahmet Carbajal MD Active TRAMADOL HCL 50 MG TABS 1-2 po TID PRN Pain TRAMADOL HCL 59425135822 No Longer Active Ahmet Carbajal MD Active METOPROLOL TARTRATE 50 MG TAB 1 po bid METOPROLOL TARTRATE 05188938169 No Longer Active Ahmet Carbajal MD Active ABILIFY 15 MG ORAL TABS 1 tab daily ARIPIPRAZOLE 05882403582 No Longer Active Ahmet Carbajal MD Active PROZAC 20 MG ORAL CAPS 1 tab daily FLUOXETINE HCL 76954222949 No Longer Active Ahmet Carbajal MD Active AMBIEN 5 MG ORAL TABS 1 tab at bedtime ZOLPIDEM TARTRATE 58509060431 No Longer Active Ahmet Carbajal MD Active PREDNISONE 20 MG TAB 2 tabs daily for 4 days, 1 tab daily for 4 days, 1/2 tab daily for 4 days PREDNISONE 10636381294 No Longer Active Ahmet Carbajal MD Active KEFLEX 500 MG CAP 1 po TID x 10 days CEPHALEXIN 75890767029 No Longer Active Vishal Hui MD Active SAPHRIS 5 MG SUBL 1 po bid ASENAPINE MALEATE 52499295122 No Longer Active Luigi Martínez APRN Active LATUDA 80 MG TABS Take one by mouth daily LURASIDONE HCL 23077301681 No Longer Active Pacollina Mauricio NORIEGA Active AMLODIPINE BESYLATE 5 MG TABS 1 tablet by mouth daily AMLODIPINE BESYLATE 57066763779 No Longer Active Pacolljanee Martínez APRN Active AMITRIPTYLINE HCL 100 MG TAB one at hs AMITRIPTYLINE HCL 23026908593 No Longer Active Vishal Hui MD Active TRAZODONE HCL 100 MG TAB take 1 at bedtime TRAZODONE HCL 56886386769 No Longer Active Vishal Hui MD Active VYVANSE 40 MG CAPS 1 daily, LISDEXAMFETAMINE DIMESYLATE 35619717295 No Longer Active Vishal Hui MD Active IBUPROFEN 600 MG TAB 1 po TID PRN IBUPROFEN 84126978930 No Longer Active Vishal Hui MD Active PROZAC 20 MG CAP Take one by mouth daily FLUOXETINE HCL 75107481612 No Longer Active Vishal Hui MD Active BACTRIM DS 800-160 MG TABS 1 pill by mouth twice daily SULFAMETHOXAZOLE-TRIMETHOPRIM 80373253145 No Longer Active Sahara Rodriguez MD PhD Active DIFLUCAN 150 MG TAB 1 tablet by mouth daily FLUCONAZOLE 57173634185 No Longer Active Vishal Hui MD Active TIZANIDINE HCL 4 MG TABS 1 po q6hr PRN Muscle Spasm/Back Pain TIZANIDINE HCL 81853437813 Active TAMARA Casey Active CLINDAMYCIN HCL 150 MG CAPS 1 four times a day CLINDAMYCIN HCL 88819526939 No Longer Active Neeraj Collins MD Active KEFLEX 500 MG ORAL CAPS 1 cap QID by mouth CEPHALEXIN 70998824298 No Longer Active Neeraj Collins MD Active DIFLUCAN 150 MG TABS 1 pill every other day x 2 doses FLUCONAZOLE 64464658102 No Longer Active Sahara Rodriguez MD PhD Active MELATONIN 3 MG CAPS 2 po q hs MELATONIN 16436340186 No Longer Active Sahara Rodriguez MD PhD Active MULTIVITAMINS CAPS Take one by mouth daily MULTIPLE VITAMIN 85828706391 No Longer Active Sahara Rodriguez MD PhD Active BACTRIM DS 800-160 MG TAB 1 tab by mouth twice daily TRIMETHOPRIM-SULFAMETHOXAZOLE 10762789237 No Longer Active Sahara Rodriguez MD PhD Active [facility] PROBIOTIC ORAL CHEW 2 daily po PROBIOTIC PRODUCT 03243778088 No Longer Active Sahara Rodriguez MD PhD Active BACTRIM DS 800-160 MG TABS 1 po BID x 7 days SULFAMETHOXAZOLE-TRIMETHOPRIM 43572506828 No Longer Active iVshal Hui MD Active CHANTIX STARTING MONTH EARNEST 0.5 MG X 11 & 1 MG X 42 TABS 0.5mg daily for 3 days , then 0.5mg BID for 4 days, then 1mg BID VARENICLINE TARTRATE 94798213487 No Longer Active TAMARA Gray Active VERAPAMIL HCL CR 120 MG TAB CR 1 po bid VERAPAMIL HCL 42980512530 No Longer Active Vishal Hui MD Active METOPROLOL SUCCINATE 50 MG TB24 1 tablet by mouth daily METOPROLOL SUCCINATE 23572633745 No Longer Active Vishal Hui MD Active SAPHRIS 10 MG SUBL 1 tab po bid ASENAPINE MALEATE 00847028632 No Longer Active Vishal Hui MD Active LISINOPRIL 20 MG TABS 1 tab po qd LISINOPRIL 28343253214 No Longer Active Vishal Hui MD Active LATUDA 20 MG TABS Take one by mouth daily LURASIDONE HCL 39385058084 No Longer Active Vishal Hui MD Active TRAZODONE HCL 50 MG TABS 1/2 tab po qd prn for anxiety TRAZODONE HCL 57825999067 No Longer Active Vishal Hui MD Active OMEPRAZOLE 20 MG TBEC 1 po q a.m. 30min prior to first food intake OMEPRAZOLE 29235770634 Active TAMARA Casey Active RANITIDINE HCL 150 MG CAPS 1 twice a day RANITIDINE HCL 69477588631 Active Lynda Xiao LPN Active LINZESS 290 MCG CAPS Take one by mouth daily LINACLOTIDE 16889163114 No Longer Active Vishal Hui MD Active SAPHRIS 5 MG SUBL 1 tab po qd ASENAPINE MALEATE 32194502958 No Longer Active Vishal Hui MD Active ZALEPLON 10 MG CAPS 1 cap po every other night ZALEPLON 50189565202 No Longer Active Vishal Hui MD Active LYRICA 50 MG CAPS 1 tab po TID PREGABALIN 78925716398 No Longer Active Vishal Hui MD Active LORATADINE 10 MG TABS 1 tab po qd LORATADINE 98111395473 No Longer Active Vishal Hui MD Active VERAPAMIL HCL ER 180 MG CR-TABS 1 tab po bid VERAPAMIL HCL 66838861180 No Longer Active Vishal Hui MD Active MIRALAX POWD 1 capfull once daily POLYETHYLENE GLYCOL 3350 47729406334 No Longer Active Vishal Hui MD Active PREDNISONE 20 MG TABS 1 tab po qd PREDNISONE 85036403896 No Longer Active Renzo Thornton DO Active LEVOFLOXACIN 500 MG TABS 1 tab po qd LEVOFLOXACIN 38734514337 No Longer Active Renzo hTornton DO Active BUSPIRONE HCL 15 MG TABS 1 tab po TID BUSPIRONE HCL 34073066939 No Longer Active Renzo Thornton DO Active BENZTROPINE MESYLATE 1 MG TABS 1 tab po qd BENZTROPINE MESYLATE 40662457500 No Longer Active Renzo Thornton DO Active ATENOLOL 25 MG TABS 1 tab po qd ATENOLOL 18457885178 No Longer Active Renzo Thornton DO Active ESCITALOPRAM OXALATE 20 MG TABS 1 tab po qd ESCITALOPRAM OXALATE 67975289618 No Longer Active Renzo Thornton DO Active ADVAIR DISKUS 250-50 MCG/DOSE AEPB 1 puff BID FLUTICASONE-SALMETEROL 91664435651 No Longer Active Renzo Thornton DO Active PREDNISONE 20 MG TAB 2 tabs daily for 3 days, 1 tab daily for 3 days, 1/2 tab daily for 2 days PREDNISONE 29016703981 No Longer Active Vishal Hui MD Active CEFDINIR 300 MG CAPS by mouth twice a day CEFDINIR 99264780658 No Longer Active Vishal Hui MD Active LANSOPRAZOLE 30 MG CPDR 1 cap po qd LANSOPRAZOLE 00142258045 No Longer Active Vishal Hui MD Active BACLOFEN 20 MG TABS 1 tab po tid BACLOFEN 89942896050 No Longer Active Vishal Hui MD Active ADVAIR DISKUS 250-50 MCG/DOSE AEPB 1 puff BID ADVAIR DISKUS 250-50 MCG/DOSE AEPB FLUTICASONE-SALMETEROL Inactive ESCITALOPRAM OXALATE 20 MG TABS 1 tab po qd ESCITALOPRAM OXALATE 20 MG TABS 057204 ESCITALOPRAM OXALATE Inactive ATENOLOL 25 MG TABS 1 tab po qd ATENOLOL 25 MG TABS 622034 ATENOLOL Inactive BENZTROPINE MESYLATE 1 MG TABS 1 tab po qd BENZTROPINE MESYLATE 1 MG TABS 350376 BENZTROPINE MESYLATE Inactive BUSPIRONE HCL 15 MG TABS 1 tab po TID BUSPIRONE HCL 15 MG TABS 272530 BUSPIRONE HCL Inactive LEVOFLOXACIN 500 MG TABS 1 tab po qd LEVOFLOXACIN 500 MG TABS 523815 LEVOFLOXACIN Inactive PREDNISONE 20 MG TABS 1 tab po qd PREDNISONE 20 MG TABS 516604 PREDNISONE Inactive MIRALAX POWD 1 capfull once daily MIRALAX POWD 323670 POLYETHYLENE GLYCOL 3350 Inactive VERAPAMIL HCL ER 180 MG CR-TABS 1 tab po bid VERAPAMIL HCL ER 180 MG CR-TABS VERAPAMIL HCL Inactive LORATADINE 10 MG TABS 1 tab po qd LORATADINE 10 MG TABS 208141 LORATADINE Inactive LYRICA 50 MG CAPS 1 tab po TID LYRICA 50 MG CAPS PREGABALIN Inactive ZALEPLON 10 MG CAPS 1 cap po every other night ZALEPLON 10 MG CAPS 509340 ZALEPLON Inactive SAPHRIS 5 MG SUBL 1 tab po qd SAPHRIS 5 MG SUBL ASENAPINE MALEATE Inactive TRAZODONE HCL 50 MG TABS 1/2 tab po qd prn for anxiety TRAZODONE HCL 50 MG TABS 120771 TRAZODONE HCL Inactive LATUDA 20 MG TABS Take one by mouth daily LATUDA 20 MG TABS LURASIDONE HCL Inactive LISINOPRIL 20 MG TABS 1 tab po qd LISINOPRIL 20 MG TABS 781736 LISINOPRIL Inactive SAPHRIS 10 MG SUBL 1 [...] twice daily BACTRIM DS 800-160 MG TAB 701470 TRIMETHOPRIM-SULFAMETHOXAZOLE Inactive MULTIVITAMINS CAPS Take one by mouth daily MULTIVITAMINS CAPS MULTIPLE VITAMIN Inactive MELATONIN 3 MG CAPS 2 po q hs MELATONIN 3 MG CAPS 338304 MELATONIN Inactive KEFLEX 500 MG ORAL CAPS 1 cap QID by mouth KEFLEX 500 MG ORAL CAPS 584111 CEPHALEXIN Inactive CLINDAMYCIN HCL 150 MG CAPS 1 four times a day CLINDAMYCIN HCL 150 MG CAPS 220664 CLINDAMYCIN HCL Inactive DIFLUCAN 150 MG TAB 1 tablet by mouth daily DIFLUCAN 150 MG TAB 945699 FLUCONAZOLE Inactive PROZAC 20 MG CAP Take one by mouth daily PROZAC 20 MG CAP 516792 FLUOXETINE HCL Inactive IBUPROFEN 600 MG TAB 1 po TID PRN IBUPROFEN 600 MG TAB 259665 IBUPROFEN Inactive VYVANSE 40 MG CAPS 1 daily, VYVANSE 40 MG CAPS LISDEXAMFETAMINE DIMESYLATE Inactive TRAZODONE HCL 100 MG TAB take 1 at bedtime TRAZODONE HCL 100 MG TAB 459781 TRAZODONE HCL Inactive AMITRIPTYLINE HCL 100 MG TAB one at hs AMITRIPTYLINE HCL 100 MG TAB 347151 AMITRIPTYLINE HCL Inactive AMLODIPINE BESYLATE 5 MG TABS 1 tablet by mouth daily AMLODIPINE BESYLATE 5 MG TABS 021756 AMLODIPINE BESYLATE Inactive LATUDA 80 MG TABS Take one by mouth daily LATUDA 80 MG TABS LURASIDONE HCL Inactive SAPHRIS 5 MG SUBL 1 po bid SAPHRIS 5 MG SUBL ASENAPINE MALEATE Inactive PREDNISONE 20 MG TAB 2 tabs daily for 4 days, 1 tab daily for 4 days, 1/2 tab daily for 4 days PREDNISONE 20 MG TAB 581351 PREDNISONE Inactive AMBIEN 5 MG ORAL TABS 1 tab at bedtime AMBIEN 5 MG ORAL TABS 453264 ZOLPIDEM TARTRATE Inactive PROZAC 20 MG ORAL CAPS 1 tab daily PROZAC 20 MG ORAL CAPS 947989 FLUOXETINE HCL Inactive ABILIFY 15 MG ORAL TABS 1 tab daily ABILIFY 15 MG ORAL TABS 707857 ARIPIPRAZOLE Inactive METOPROLOL TARTRATE 50 MG TAB 1 po bid METOPROLOL TARTRATE 50 MG TAB 296657 METOPROLOL TARTRATE Inactive TRAMADOL HCL 50 MG TABS 1-2 po TID PRN Pain TRAMADOL HCL 50 MG TABS 788822 TRAMADOL HCL Inactive PIROXICAM 20 MG CAPS 1 cap po qd PRN Pain PIROXICAM 20 MG CAPS 868559 PIROXICAM Inactive MINIPRESS 2 MG CAPS 4 cap po at night MINIPRESS 2 MG CAPS 624301 PRAZOSIN HCL Inactive MIRALAX PACK 1 po qd PRN Constipation MIRALAX PACK 721062 POLYETHYLENE GLYCOL 3350 Inactive METOPROLOL TARTRATE 25 MG ORAL TABS 1/2 tablet twice daily for heart rate and blood pressure METOPROLOL TARTRATE 25 MG ORAL TABS 945056 METOPROLOL TARTRATE Inactive VALIUM 5 MG TAB Take 1-2 tablets daily VALIUM 5 MG TAB 461257 DIAZEPAM Inactive FLAGYL 500 MG TAB 1 tablet by mouth bid FLAGYL 500 MG TAB 939888 METRONIDAZOLE Inactive DICLOFENAC POTASSIUM TABS Take 1 tablet twice a day (pt. is not sure of the dose.) DICLOFENAC POTASSIUM TABS DICLOFENAC POTASSIUM TABS Inactive ZITHROMAX Z-EARNEST 250 MG TABS 2 today and then 1 daily for 4 days ZITHROMAX Z-EARNEST 250 MG TABS 2419060 AZITHROMYCIN Inactive PREDNISONE 20 MG TABS 2 daily for 5 days then 1 daily for 5 days PREDNISONE 20 MG TABS 722485 PREDNISONE Inactive PROAIR HFA 108 (90 BASE) MCG/ACT AERS 2 puffs four times a day as needed 2015 PROAIR HFA 108 (90 BASE) MCG/ACT AERS ALBUTEROL SULFATE Inactive HYDROCODONE-ACETAMINOPHEN 5-325 MG TABS 1 to 2 four times a day as needed for pain use until can be seen by specialist HYDROCODONE- ACETAMINOPHEN 5-325 MG TABS 738587 HYDROCODONE-ACETAMINOPHEN Inactive TESSALON PERLES 100 MG CAP 1 to 2 tablets by mouth 3 times daily as needed for cough TESSALON PERLES 100 MG CAP 893563 BENZONATATE Inactive CHANTIX STARTING MONTH EARNEST 0.5 [...] Pain 2015 DICLOFENAC SODIUM 50 MG TBEC 135980 DICLOFENAC SODIUM Inactive TOPAMAX 50 MG ORAL TABS 1 tab twice daily TOPAMAX 50 MG ORAL TABS 660773 TOPIRAMATE Inactive VIIBRYD 10 MG ORAL TABS Take 1 tablet once a day VIIBRYD 10 MG ORAL TABS VILAZODONE HCL Inactive LEVOFLOXACIN 500 MG ORAL TABS po daily LEVOFLOXACIN 500 MG ORAL TABS 923888 LEVOFLOXACIN Inactive METHYLPREDNISOLONE 4 MG ORAL TABS po daily METHYLPREDNISOLONE 4 MG ORAL TABS 706881 METHYLPREDNISOLONE Inactive OXYCODONE HCL ER 10 MG ORAL T12A 1/2 tab by mouth every 4 hours prn OXYCODONE HCL ER 10 MG ORAL T12A OXYCODONE HCL Inactive FLAGYL 500 MG TAB 1 tablet by mouth bid FLAGYL 500 MG TAB 858552 METRONIDAZOLE Inactive MONISTAT 7 COMBO PACK WOODROW 100 & 2 MG-% (9GM) VAG KIT 1 applicatorful per vagina q pm x 7 MONISTAT 7 COMBO PACK WOODROW 100 & 2 MG-% (9GM) VAG KIT MICONAZOLE NITRATE Inactive BACTRIM DS 800-160 MG TABS 1 twice a day BACTRIM DS 800-160 MG TABS 001628 SULFAMETHOXAZOLE-TRIMETHOPRIM Inactive TRAMADOL HCL 50 MG TABS 1/2-1 tab TID PRN TRAMADOL HCL 50 MG TABS 106605 TRAMADOL HCL Inactive ABILIFY MAINTENA 400 MG IM SUSR 400mg injection every 26 days ABILIFY MAINTENA 400 MG IM SUSR ARIPIPRAZOLE Inactive KLONOPIN 1 MG ORAL TABS 1 tab po TID KLONOPIN 1 MG ORAL TABS 547114 CLONAZEPAM Inactive ADVAIR DISKUS 250-50 MCG/DOSE INH AEPB 1 puff twice a day for asthma ADVAIR DISKUS 250-50 MCG/DOSE INH AEPB FLUTICASONE- SALMETEROL Inactive BENADRYL 25 MG CAP 4 po at bedtime for insomnia BENADRYL 25 MG CAP DIPHENHYDRAMINE HCL Inactive PREDNISONE 20 MG TABS 2 daily for 5 days then 1 daily for 5 days PREDNISONE 20 MG TABS [id number] PREDNISONE Inactive HYDROCODONE-ACETAMINOPHEN 5-325 MG ORAL TABS 1 tab two times a day HYDROCODONE-ACETAMINOPHEN 5-325 MG ORAL TABS [id number] HYDROCODONE-ACETAMINOPHEN Inactive ZITHROMAX Z-EARNEST 250 MG TABS 2 today and then 1 daily for 4 days ZITHROMAX Z-EARNEST 250 MG TABS [id number] AZITHROMYCIN Inactive GUAIFENESIN-CODEINE 100-10 MG/5ML SYRP 5ml every 4 to 6 hours as needed for cough GUAIFENESIN-CODEINE 100-10 MG/5ML SYRP [id number] GUAIFENESIN-CODEINE Inactive HALOPERIDOL 10 MG ORAL TABS 1 tab q.d HALOPERIDOL 10 MG ORAL TABS 389962 HALOPERIDOL Inactive ASPIRIN 325 MG ORAL TABS 1 tab q.d ASPIRIN 325 MG ORAL TABS 389292 ASPIRIN Inactive FLUTICASONE PROPIONATE 50 MCG/ACT SUSP 2 sprays each nostril daily before bed. FLUTICASONE PROPIONATE 50 MCG/ACT SUSP [id number] FLUTICASONE PROPIONATE Inactive ZOFRAN 4 MG TABS 1 po q6hr PRN Nausea ZOFRAN 4 MG TABS 030184 ONDANSETRON HCL Inactive KEFLEX 500 MG CAP 1 po qid KEFLEX 500 MG CAP 966077 CEPHALEXIN Inactive ACETAMINOPHEN-CODEINE 120-12 MG/5ML SOLN 5 ml by mouth every 4-6 hours if needed for cough ACETAMINOPHEN-CODEINE 120-12 MG/5ML SOLN 179720 ACETAMINOPHEN-CODEINE Inactive PREDNISONE 20 MG TAB 1 tablet daily x 4 days PREDNISONE 20 MG TAB 541874 PREDNISONE Inactive TROPICAMIDE 0.5 % OPHTH SOLN 1 drop PRN eye spasms TROPICAMIDE 0.5 % OPHTH SOLN 448691 TROPICAMIDE Inactive LEVAQUIN 500 MG TABS 1 daily for infection LEVAQUIN 500 MG TABS 145440 LEVOFLOXACIN Inactive PREDNISONE 10 MG TABS 2 [...] for cough TESSALON PERLES 100 MG CAPS 840527 BENZONATATE Inactive AMITIZA 8 MCG ORAL CAPS 1 tab BID AMITIZA 8 MCG ORAL CAPS LUBIPROSTONE Inactive LINZESS 290 MCG ORAL CAPS 1 tab 30 min prior to first meal each day. LINZESS 290 MCG ORAL CAPS LINACLOTIDE Inactive DIFLUCAN 150 MG TABS 1 by mouth for yeast DIFLUCAN 150 MG TABS 161446 FLUCONAZOLE Inactive BACTRIM DS 800-160 MG TABS 1 twice a day BACTRIM DS 800-160 MG TABS 19820521 SULFAMETHOXAZOLE-TRIMETHOPRIM Inactive MUPIROCIN 2 % OINT apply twice a day MUPIROCIN 2 % OINT 441344 MUPIROCIN Inactive BACTRIM DS 800-160 MG TAB Take one (1) tablet by mouth twice a day for 5 days BACTRIM DS 800-160 MG TAB 083610 TRIMETHOPRIM- SULFAMETHOXAZOLE Inactive LACTULOSE 10 GM/15ML ORAL SOLN 30mL oral BID for IBS-C LACTULOSE 10 GM/15ML ORAL SOLN 648238 LACTULOSE Inactive MIRALAX ORAL POWD 17GMS DAILY IN WATER MIRALAX ORAL POWD 910096 POLYETHYLENE GLYCOL 3350 Inactive BACTRIM DS 800-160 MG TABS 1 twice a day BACTRIM DS 800-160 MG TABS 19820521 SULFAMETHOXAZOLE-TRIMETHOPRIM Inactive NYSTATIN 313203 UNIT/GM CREA apply three times a day to yeast rash NYSTATIN 864118 UNIT/GM CREA 796093 NYSTATIN Inactive CEFDINIR 300 MG CAPS by mouth twice a day CEFDINIR 300 MG CAPS 756294 CEFDINIR Inactive PREDNISONE 20 MG TAB 2 tabs daily for 3 days, 1 tab daily for 3 days, 1/2 tab daily for 2 days PREDNISONE 20 MG TAB 241760 PREDNISONE Inactive BACTRIM DS 800-160 MG TABS 1 po BID x 7 days BACTRIM DS 800-160 MG TABS 19820521 SULFAMETHOXAZOLE-TRIMETHOPRIM Inactive DIFLUCAN 150 MG TABS 1 pill every other day x 2 doses DIFLUCAN 150 MG TABS 559424 FLUCONAZOLE Inactive BACTRIM DS 800-160 MG TABS 1 pill by mouth twice daily BACTRIM DS 800-160 MG TABS 19820521 SULFAMETHOXAZOLE-TRIMETHOPRIM Inactive KEFLEX 500 MG CAP 1 po TID x 10 days KEFLEX 500 MG CAP 969586 CEPHALEXIN Inactive Advance Directives Directive Description Start [...] leukocyte count, blood 11.0 10^3/MM^3 10*3/mm3 4.6-10.2 mean corpuscular hemoglobin concentration, RBC 34.8 G/DL % 31.8- 35.4 red blood cell distribution width 12.0 % 13.0-18.0 platelet count 381 10^3/MM^3 10*3/mm3 003-197 6993/06/28 erythrocyte (RBC) count 4.65 10^6/MM^3 10*6/mm3 3.80-5.80 hemoglobin, blood 14.7 g/dL 12.0-16.0 hematocrit, blood 42.4 % 37.0-47.0 mean corpuscular volume, RBC 91 fL 80-97 mean corpuscular hemoglobin, RBC 31.7 pg 27.0-31.2 Lab Report: CBC (INCLUDES DIFF/PLT)/6399, COMPREHENSIVE METABOLIC [...] % 11.0-15.0 platelet count 443 THOUSAND/UL 10*3/mm3 178-837 9351/03/01 mean platelet volume 8.2 fL 7.5-12.5 erythrocyte [...] % 11.0-15.0 platelet count 349 THOUSAND/UL 10*3/mm3 248-381 3447/04/12 mean platelet volume 8.4 fL 7.5-12.5 Lab Report: CBC W/DIFF, Comp. Metabolic Panel, HGBA1C, Magnesium - Chemistry sodium, serum 141 mmol/L 293-469 7889/07/24 carbon dioxide, venous blood 27.8 mmol/L 21.0-32.0 [...] leukocyte count, blood 10.7 10^3/MM^3 10*3/mm3 4.6-10.2 hematocrit, blood 41.2 % 37.0-47.0 mean corpuscular volume, RBC 92 fL 80-97 mean corpuscular hemoglobin, RBC 31.0 pg 27.0-31.2 mean corpuscular hemoglobin concentration, RBC 33.7 G/DL % 31.8- 35.4 red blood cell distribution width 13.6 % 13.0-18.0 platelet count 382 10^3/MM^3 10*3/mm3 602-816 2669/07/24 neutrophils as percent of blood leukocytes 61.5 % 42.2-75.2 monocytes as percent of blood leukocytes 7.5 % 2.0-10.0 lymphocytes as percent of blood leukocytes 28.1 % 20.0-40.0 erythrocyte (RBC) count 4.47 10^6/MM^3 10*6/mm3 3.80-5.80 hemoglobin, blood 13.9 g/dL 12.0-16.0 Lab Report: CBC, Thyroid Stimulating Hormone (L) [...] 369 10^3/MM^3 10*3/mm3 142-424 Lab Report: Chlamydia/GC APTIMA/58103 - Lab chlamydia DNA probe NOT DETECTED NOT DETECTED Lab Report: Chlamydia/GC APTIMA/71591 - Microbiology Neisseria gonorrhoeae DNA probe NOT DETECTED NOT DETECTED Lab Report: Chlamydia/GC APTIMA/75804, Urinalysis, Complete, with Reflex ... - Lab chlamydia DNA probe NOT DETECTED NOT DETECTED Lab Report: Chlamydia/GC APTIMA/49127, Urinalysis, Complete, with Reflex ... - Microbiology Neisseria gonorrhoeae DNA probe NOT DETECTED NOT DETECTED Lab Report: Chlamydia/GC APTIMA/39919, Urinalysis, Complete, with Reflex ... - Urinalysis microalbumin/total urine volume 2 mg/L Units converted. See lab report for original value. microalbumin/creatinine ratio, urine 9 MCG/MG CREAT mg/L <30 Lab Report: Comp. Metabolic Panel - Chemistry sodium, serum 140 mmol/L 560-546 7661/06/28 carbon dioxide, venous blood 23.8 mmol/L 21.0-32.0 [...] urine, dipstick Negative Negative RBC, urine, dipstick Trace-intact Negative Lab [...] >=1.030 1.000-1.030 pH, urine, semiquantitative 5.0 5.0-8.5 glucose, urine, semiquantitative Negative Negative glucose, urine, semiquantitative Negative Negative pH, urine, semiquantitative 6.0 5.0-8.5 glucose, urine, [...] color Yellow Colorless;Lightyellow;Straw;Yellow urine color Yellow Colorless;Lightyellow;Straw;Yellow ketones, urine, by test strip 1+ Negative bilirubin, urine 1+ Negative Office Visit: Possible UTI - Chemistry RBC, [...] negative Encounters Code Encounter Date Provider Facility CPT-48319 Level 5 Est. Patient 12:01:37 CDT Maude Miranda [facility] CPT-99527 Level 3 Est. Patient 11:36:47 CDT [facility] CPT-64189 Level 3 Est. Patient 10:53:17 CDT [facility] CPT-31788 Level 3 Est. Patient 11:08:35 CDT [facility] CPT-83937 Level 3 Est. Patient 15:55:20 CDT [facility] CPT-52218 Level 4 Est. Patient 10:49:34 CDT [facility] CPT-37653 Level 3 Est. Patient 10:00:25 CDT [facility] CPT-52845 Level 3 Est. Patient 10:29:30 CDT [facility] CPT-81876 Level 3 Est. Patient 11:04:38 CDT Renzo Thornton [facility] CPT-69071 Level 3 Est. Patient 11:15:58 SPECIAL TECHNICAL OPERATIONS OFFICER Renzo Thornton [facility] CPT-63383 Level 3 Est. Patient 15:28:23 SPECIAL TECHNICAL OPERATIONS OFFICER Suzan Boo [facility] CPT-16091 Level 4 Est. Patient 10:20:54 SPECIAL TECHNICAL OPERATIONS OFFICER Suzan Boo [facility] CPT-54280 Level 3 Est. Patient 11:47:37 SPECIAL TECHNICAL OPERATIONS OFFICER Ahmet Carbajal MD [facility] CPT-48758 Level 3 Est. Patient 10:40:11 SPECIAL TECHNICAL OPERATIONS OFFICER Ahmet Carbajal MD [facility] CPT-33419 Level 3 Est. Patient 15:07:06 SPECIAL TECHNICAL OPERATIONS OFFICER Neeraj Collins MD [facility] CPT-68076 Level 4 Est. Patient 14:45:00 SPECIAL TECHNICAL OPERATIONS OFFICER Ahmet Carbajal MD [facility] CPT-35450 Level 3 Est. Patient 13:59:59 CDT Luigi Martínez [facility] CPT-02555 Level 3 Est. Patient 18:18:53 CDT Neeraj Collins MD [facility] CPT-63412 Level 3 Est. Patient 15:50:44 CDT Vishal Hui MD [facility] CPT-67536 Level 3 Est. Patient 11:36:17 CDT Ahmet Carbajal MD [facility] CPT-08419 Level 3 Est. Patient 13:29:16 CDT Vishal Hui MD [facility] CPT-01033 Level 3 Est. Patient 14:27:52 CDT Neeraj Collins MD [facility] CPT-76092 Level 3 Est. Patient 08:56:03 CDT Luigi Martínez [facility] CPT-88980 Level 4 Est. Patient 12:11:48 CDT Fabiola Johnson [facility] CPT-60949 Level 3 New Patient 16:53:37 CDT Albert Caldera MD [facility] CPT-93452 Level 3 Est. Patient 11:25:49 CDT Renzo Thornton DO [facility] CPT-90061 Level 3 Est. Patient 15:22:01 CDT Ahmet Carbajal MD [facility] CPT-48307 Level 4 Est. Patient 09:00:51 SPECIAL TECHNICAL OPERATIONS OFFICER Vishal Hui MD [facility] CPT-23882 Level 3 Est. Patient 11:37:33 SPECIAL TECHNICAL OPERATIONS OFFICER Vishal Hui MD [facility] CPT-46231 Level 3 Est. Patient 08:41:09 SPECIAL TECHNICAL OPERATIONS OFFICER Vishal Hui MD [facility] CPT-29479 Level 4 Est. Patient 10:19:35 SPECIAL TECHNICAL OPERATIONS OFFICER Vishal Hui MD [facility] CPT-76811 Level 3 Est. Patient 13:35:45 CDT Vishal Hui MD [facility] CPT-77906 Level 4 Est. Patient 10:08:37 CDT Vishal Hui MD [facility] CPT-68060 Level 3 Est. Patient 11:22:10 CDT Vishal Hui MD [facility] CPT-75983 Level 3 Est. Patient 11:03:32 CDT Sahara Rodriguez MD, PhD [facility] CPT-52249 Level 3 Est. Patient 09:41:35 CDT Vishal Hui MD [facility] CPT-60038 Level 3 Est. Patient 12:00:41 CDT Neeraj Collins MD [facility] CPT-05360 Level 3 Est. Patient 09:16:24 CDT Vishal Hui MD [facility] CPT-19709 Level 4 Est. Patient 13:59:09 CDT Neeraj Collins MD [facility] CPT-74457 Level 3 Est. Patient 15:19:43 CDT Renzo Thornton [facility] CPT-34435 Level 3 Est. Patient 18:10:26 CDT Sahara Rodriguez MD PhD [facility] CPT-64720 Level 3 Est. Patient 14:49:50 CDT Vishal Hui MD [facility] CPT-11647 Level 4 Est. Patient 18:41:46 CDT Neeraj Collins MD [facility] CPT-83565 Level 4 Est. Patient 09:18:38 SPECIAL TECHNICAL OPERATIONS OFFICER Vishal Hui MD [facility] CPT-62073 Level 3 Est. Patient 14:43:55 SPECIAL TECHNICAL OPERATIONS OFFICER Vishal Hui MD [facility] CPT-64076 Level 3 Est. Patient 15:26:33 SPECIAL TECHNICAL OPERATIONS OFFICER Sahara Rodriguez MD PhD [facility] CPT-09559 Level 3 Est. Patient 10:32:14 SPECIAL TECHNICAL OPERATIONS OFFICER Vishal Hui MD [facility] CPT-92433 Level 3 Est. Patient 15:12:52 SPECIAL TECHNICAL OPERATIONS OFFICER Vishal Hui MD [facility] CPT-86492 Level 4 Est. Patient 09:19:27 CDT Vishal Hui MD [facility] CPT-89031 Level 3 Est. Patient 15:53:00 CDT Renzo Thornton [facility] CPT-74813 Level 3 Est. Patient 15:50:30 CDT Renzo Thornton [facility] CPT-16770 Level 3 Est. Patient 16:55:24 CDT Vishal Hui MD [facility] Procedures Code Procedure Name Date Entry Date Standard Description CPT-89146 UA Dip Auto (Floor Use Only) 11:36:47 CDT CPT-59901 Venipuncture Draw Fee 10:53:17 CDT CPT-98392 EKG Trac and Interp - XRAY USE ONLY 15:59:30 CDT 09/13 CPT-28597 Chest 1V Frontal - XRAY USE ONLY 15:59:30 CDT CPT-91597 Venipuncture Draw Fee 15:44:02 CDT CPT-77435 Venipuncture Draw Fee 08:41:12 CDT CPT-47670 Abd compl w upright - XRAY USE ONLY 10:27:59 CDT 06/28 CPT-07428 Smoking Cessation counseling 11:15:58 SPECIAL TECHNICAL OPERATIONS OFFICER CPT-G0439 Subsequent Annual Wellness Exam 09:30:58 SPECIAL TECHNICAL OPERATIONS OFFICER CPT-97762 TSH - LAB USE ONLY 08:50:26 SPECIAL TECHNICAL OPERATIONS OFFICER CPT-74730 CBC - LAB USE ONLY 08:50:26 SPECIAL TECHNICAL OPERATIONS OFFICER CPT-84577 Venipuncture Draw Fee 08:50:26 SPECIAL TECHNICAL OPERATIONS OFFICER CPT-52810 Abx/Therapy Injection 17:34:30 SPECIAL TECHNICAL OPERATIONS OFFICER CPT-24487 Nexplanon Removal with Reinsertion 14:09:32 CDT CPT-J7307 Nexplanon (Implant) 14:09:32 CDT CPT-OV Office Visit 14:09:32 CDT CPT-35519 UA w micro - LAB USE ONLY 16:21:13 CDT CPT-46558 Wet Mount - LAB USE ONLY 16:21:13 CDT CPT-15625 First Vx - Ix admin for Medicare patients 14:37:47 CDT CPT-45288 Fluzone Preservative Free Intramuscular Suspension 14:37 :47 CDT CPT-18563 Abx/Therapy Injection 13:54:22 CDT CPT-18308 Abx/Therapy Injection 08:47:09 CDT CPT-93909 Abx/Therapy Injection 13:29:56 CDT CPT-41298 Abx/Therapy Injection 08:36:16 CDT CPT-70255 Wet Mount - LAB USE ONLY 17:44:58 CDT CPT-84600 UA w micro - LAB USE ONLY 17:44:58 CDT CPT-09293 CMP - LAB USE ONLY 17:44:58 CDT CPT-06658 Venipuncture Draw Fee 17:44:58 CDT CPT-35315 Cervical Min 4V - XRAY USE ONLY 09:01:40 CDT CPT-75566 Chest 2V Frontal and Lat - XRAY USE ONLY 11:06:31 CDT CPT-97509 EKG Trac and Interp - XRAY USE ONLY 11:31:43 CDT 08/26 CPT-J3420 Vitamin B12 1000mcg (Cyanocobalamin) 08:10:26 SPECIAL TECHNICAL OPERATIONS OFFICER 04/12 CPT-89778 Abx/Therapy Injection 08:10:26 SPECIAL TECHNICAL OPERATIONS OFFICER CPT-G0438 Initial Annual Wellness Exam 19:01:01 SPECIAL TECHNICAL OPERATIONS OFFICER CPT-J3420 Vitamin B12 1000mcg (Cyanocobalamin) 16:57:46 CDT 08/14 CPT-39956 Recombivax HB Injection Suspension 5 MCG/0.5ML 08:37:50 SPECIAL TECHNICAL OPERATIONS OFFICER CPT-31915 Immunization Single Admin 08:37:50 SPECIAL TECHNICAL OPERATIONS OFFICER CPT-J3420 Vitamin B12 1000mcg (Cyanocobalamin) 08:32:16 SPECIAL TECHNICAL OPERATIONS OFFICER 03/11 CPT-58484 Abx/Therapy Injection 08:32:16 SPECIAL TECHNICAL OPERATIONS OFFICER CPT-83628 Chest 2V Frontal and Lat 11:46:38 SPECIAL TECHNICAL OPERATIONS OFFICER CPT-08114 Venipuncture Draw Fee 09:12:45 SPECIAL TECHNICAL OPERATIONS OFFICER CPT-J3420 Vitamin B12 1000mcg (Cyanocobalamin) 08:50:15 SPECIAL TECHNICAL OPERATIONS OFFICER 02/08 CPT-91054 Abx/Therapy Injection 08:50:15 SPECIAL TECHNICAL OPERATIONS OFFICER CPT-Cryo Cryotherapy 10:19:35 SPECIAL TECHNICAL OPERATIONS OFFICER CPT-000 Give Appropriate Flu Vaccine 09:22:16 CDT CPT-J3420 Vitamin B12 1000mcg (Cyanocobalamin) 19:08:57 CDT 01/11 CPT-02259 Abx/Therapy Injection 19:08:57 CDT CPT-J3420 Vitamin B12 1000mcg (Cyanocobalamin) 08:19:08 CDT 12/11 CPT-85156 Abx/Therapy Injection 08:19:08 CDT CPT-J3420 Vitamin B12 1000mcg (Cyanocobalamin) 14:48:00 CDT 11/09 CPT-90324 Abx/Therapy Injection 14:47:59 CDT CPT-J3420 Vitamin B12 1000mcg (Cyanocobalamin) 08:34:04 CDT 10/09 CPT-22335 Abx/Therapy Injection 08:34:04 CDT CPT-J3420 Vitamin B12 1000mcg (Cyanocobalamin) 09:18:52 CDT 09/11 CPT-59259 Abx/Therapy Injection 09:18:52 CDT CPT-J3420 Vitamin B12 1000mcg (Cyanocobalamin) 08:35:44 CDT 09/04 CPT-98956 Abx/Therapy Injection 08:35:44 CDT CPT-08239 Immunization Single Admin 11:07:16 CDT CPT-53244 Hepatitis B adult IM 11:07:16 CDT CPT-J3420 Vitamin B12 1000mcg (Cyanocobalamin) 11:00:49 CDT 08/28 CPT-J1040 Depo Medrol 80 mg (Methyl Prednisolone Acetate) 11:00: 49 CDT CPT-98521 Abx/Therapy Injection 11:00:49 CDT CPT-J1040 Depo Medrol 80 mg (Methyl Prednisolone Acetate) 09:16: 23 CDT CPT-J3420 Vitamin B12 1000mcg (Cyanocobalamin) 08:27:05 CDT 08/20 CPT-61913 Abx/Therapy Injection 08:27:05 CDT CPT-71451 Recombivax HB Injection Suspension 5 MCG/0.5ML 10:00:41 CDT CPT-06661 Administration single or combination vaccine inc oral 10 :00:41 CDT CPT-28258 Sono transvag pelvis non OB uterus ovaries cervix 16:36: 57 CDT CPT-04652 LS spine comp w obliq 09:50:55 SPECIAL TECHNICAL OPERATIONS OFFICER CPT-07415 Abd compl w upright 09:50:55 SPECIAL TECHNICAL OPERATIONS OFFICER CPT-J1100 Decadron 4mg (Dexamethasone) 15:51:24 SPECIAL TECHNICAL OPERATIONS OFFICER CPT-J1030 Depo Medrol 40 mg (Methyl Prednisolone Acetate) 15:51: 24 SPECIAL TECHNICAL OPERATIONS OFFICER CPT-86174 Abx/Therapy Injection 15:51:24 SPECIAL TECHNICAL OPERATIONS OFFICER CPT-J1100 Decadron 4mg (Dexamethasone) 15:26:33 SPECIAL TECHNICAL OPERATIONS OFFICER CPT-J1030 Depo Medrol 40 mg (Methyl Prednisolone Acetate) 15:26: 33 SPECIAL TECHNICAL OPERATIONS OFFICER CPT-61465 Sono retroperitoneal complete kidneys and bladder 17:15: 30 CDT CPT-35749 Abd compl w upright 16:09:25 CDT CPT-J1100 Decadron 8mg (Dexamethasone) 17:07:57 CDT CPT-34934 Abx/Therapy Injection 17:07:57 CDT CPT-J1100 Decadron 8mg (Dexamethasone) 16:55:24 CDT CPT-78952 Chest 2V Frontal and Lat 16:32:44 CDT
== END 2016-12-29 10:40 | disposition home or self-care (01) ==
LOC: SDC 06:57
PROVIDERS: ATTEND Surgery
DX: D17.1 Benign lipomatous neoplasm of skin and subcutaneous tissue of trunk (principal); I10 Essential (primary) hypertension; F90.9 Attention-deficit hyperactivity disorder, unspecified type; E11.9 Type 2 diabetes mellitus without complications; G47.33 Obstructive sleep apnea (adult) (pediatric); F43.10 Post-traumatic stress disorder, unspecified; R00.0 Tachycardia, unspecified; G43.909 Migraine, unspecified, not intractable, without status migrainosus; J44.9 Chronic obstructive pulmonary disease, unspecified; J45.909 Unspecified asthma, uncomplicated; F31.9 Bipolar disorder, unspecified; F17.200 Nicotine dependence, unspecified, uncomplicated; Z79.899 Other long term (current) drug therapy
CPT/HCPCS: 82962; 84703; 87081

== ENCOUNTER 2017-01-01 14:48 | Emergency (ER) | payer MEDICARE, MEDICAID ==
[~2017-01-01] VITALS: Ht 165.1 cm; Wt 117.9 kg
[~2017-01-01 14:48] MED LIST changes: +HYDR-3820 PO; +MELA5TAB14 PO; +OMEG100032 PO
--- OUTSIDE RECORDS SUMMARY | 2017-01-01 14:57 | XMS REPORT | Encounter Summary ---
Author Author [facility] Organization [facility] Address Unknown Phone Unavailable Care Team Providers Care Clarifying Plant Operator Name Role Phone PCP Unavailable Reason for Visit * Reason Comments Medication Refill Encounter Details Date Type Department Care Team Description 12/14/2016 Refill [place] [facility] Emanuel Carrillo MD Myalgia ( [facility] [address] Dx);Fibromyalgia;Lumbar [address] [place] [address] [place] [address] [place] [address] [phone] Social History Tobacco Use Types Packs/Day Years [...]
--- OUTSIDE RECORDS SUMMARY | 2017-01-01 14:57 | XMS REPORT | Clinical Summary ---
Author Author [facility] Organization [facility] Address Unknown Phone Unavailable Care Team Providers Care Medical Technologist Chemistry Name Role Phone PCP Unavailable Source Comments Some departments are not documenting in the electronic medical record. If you do not see the information that you expected, contact Release of Information in the Health Information Management department at [phone] for further assistance in locating additional records.[facility] Allergies Active Allergy Reactions Severity Noted Date [...] 40.0-49.9 (HCC) 06/25/2015 Seizures (HCC) 06/24/2015 Convulsion ([facility]) 06/24/2015 Bilateral low back [...] Procedure Name Priority Date/Time Associated Diagnosis Comments MO CHEMODERVATE Routine 11/16/2016 Migraine without status Results [...] was used. The injections were as follows: Glass Wool Blanket Machine Feeder: 5 units each side Procerus: 5 units Frontalis: 10 units each side Temporalis: 20 units each side Occipitalis: 15 units each side Cervical paraspinal: 10 units each side Trapezius: 15 units each side A total of 155u botox were administered. The patient tolerated the procedure well without any apparent difficulties or complications. from Last 3 Months
--- OUTSIDE RECORDS SUMMARY | 2017-01-01 14:58 | XMS REPORT | Encounter Summary ---
Author Author [facility] Organization [facility] Address Unknown Phone Unavailable Care Team Providers Care Ore Feeder Name Role Phone PCP Unavailable Encounter Details Date Type Department Care Team Description 10/30/2016 Ancillary Rad Outpatient, Radiologist Diagnosis unknown Orders [address] [place] [address] Social History Tobacco Use Types [...]
--- OUTSIDE RECORDS SUMMARY | 2017-01-01 14:58 | XMS REPORT | Encounter Summary ---
Author Author [facility] Organization [facility] Address Unknown Phone Unavailable Care Team Providers Care Glass Polisher Name Role Phone PCP Unavailable Reason for Visit * Reason Comments Headache Pt : reports noticed symptoms of headaches 2 years. Encounter Details Date Type Department Care Team Description 11/08/2016 Office Visit [facility] Meseret Caballero MBBS Chronic migraine without Hospital Neurology [address] aura without status [address] [place] [address] migrainosus, not [address] [place] [address] intractable ([place] [address] Dx);Chronic daily [phone] headache Social History Tobacco Use Types Packs/Day [...] of the medications that have gained their [place] [employer] recommendation for use. As with any medication, these can cause side effects. Please be aware of the most common side effects and call the office with any concerns. in this encounter Progress Notes * Meseret Caballero MBBS - 11/08/2016 2:00 PM CDT Formatting of this note may be different from the original. Date of Service: 11/08/2016 rAa Kirby is a 31 y.o. female. Subjective: [...] OXYGEN-AIR DELIVERY SYSTEMS (HORIZON NASAL CPAP SYSTEM [facility]) Use as directed. ranitidine(+) (ZANTAC) 150 mg [...] co-ordination of care. Meseret Caballero MD Clinical Axle Bearing Polisher Department of Neurology in this encounter Plan of Treatment Not on fileas of this encounter Visit Diagnoses Diagnosis Chronic migraine without aura without status migrainosus, not intractable - Primary Chronic migraine without aura, without mention of intractable migraine without mention of status migrainosus Chronic daily headache Headache in this encounter
--- OUTSIDE RECORDS SUMMARY | 2017-01-01 14:58 | XMS REPORT | Encounter Summary ---
Author Author [facility] Organization [facility] Address Unknown Phone Unavailable Care Team Providers Care Motion Picture Set Worker Name Role Phone PCP Unavailable Reason for Visit * Reason Comments Pre-Visit Planning Dr Caballero 11/08/16 Encounter Details Date Type Department Care Team Description 10/25/2016 Telephone The [facility] Meseret Caballero MBBS Pre-Visit Planning ([facility] [address] [facility] [place] 11/08/16) [address] [place] [address] [place] [address] [phone] Social History Tobacco Use Types Packs/Day Years [...] Head and CT and MRI of Neck [facility] [phone] Patient will try to bring disk. Medications, Allergies, History Updated (LB) in this encounter Plan of Treatment Not on fileas of this encounter Visit Diagnoses Not on filein this encounter
--- OUTSIDE RECORDS SUMMARY | 2017-01-01 14:58 | XMS REPORT | Encounter Summary ---
Author Author [facility] Organization [facility] Address Unknown Phone Unavailable Care Team Providers Care Clinical Data Analyst Name Role Phone PCP Unavailable Reason for Visit * Reason Comments Medication Update Encounter Details Date Type Department Care Team Description 11/13/2016 Telephone [facility] Meseret Caballero MBBS Medication Update [facility] [address] [place] [address] [place] [address] [phone] Social History Tobacco Use Types Packs/Day Years [...] voiced understanding and agreeable to the recommendations. SAGAR Lebron * Telephone Encounter - Vi [...]
--- OUTSIDE RECORDS SUMMARY | 2017-01-01 14:58 | XMS REPORT | Encounter Summary ---
Author Author [facility] Organization [facility] Address Unknown Phone Unavailable Care Team Providers Care Flight/Transport Nurse Name Role Phone PCP Unavailable Reason for Referral * Pain Authorization Status Reason Specialty Diagnoses / Referred By Referred To Procedures Contact Contact No Auth Needed Anesthesia Pain Diagnoses Emanuel Carrillo MD [facility] Migraine without [address] migrainosus, not [place] [address] intractable, [place] [address] migraine type Phone: Phone: P [phone] rocedures Fax: CHEMODENERVATION [phone] MUSCLE MIGRAINE Reason for Visit * Reason Comments Appointment Encounter Details Date Type Department Care Team Description 11/08/2016 Telephone [facility] Jennifer Canas RN Appointment Pain Procedure [address] [place] [facility] [place] [id number] Social History Tobacco Use Types Packs/Day Years [...] was used. The injections were as follows: Cost Control Analyst: 5 units each side Procerus: 5 units [...]
--- OUTSIDE RECORDS SUMMARY | 2017-01-01 14:58 | XMS REPORT | Encounter Summary ---
Author Author [facility] Organization [facility] Address Unknown Phone Unavailable Care Team Providers Care Professor Of Graphic Design Name Role Phone PCP Unavailable Reason for Referral * Pain Authorization Status Reason Specialty Diagnoses / Referred By Referred To Procedures Contact Contact New Request Diagnoses Emanuel Carrillo MD Migraine without [address] migrainosus, not [address] intractable, [place], [place] [address] migraine type Phone: Migraine without [phone] aura and without Fax: status [phone] migrainosus, not intractable P rocedures CHEMODENERVATION MUSCLE MIGRAINE * Pain Authorization Status Reason Specialty Diagnoses / Referred By Referred To Procedures Contact Contact No Auth Needed Anesthesia Pain Diagnoses Emanuel Carrillo MD Icc Spn Anesth Migraine without [address] migrainosus, not [address] intractable, [place], [place] [address] migraine type Phone: Phone: P [phone] rocedures Fax: CHEMODENERVATION [phone] MUSCLE MIGRAINE Reason for Visit * Reason Comments Migraine Imm/Inj * Pain Authorization Status Reason Specialty Diagnoses / Referred By Referred To Procedures Contact Contact No Auth Needed Anesthesia Pain Diagnoses Emanuel Carrillo MD Icc Spn Anesth Migraine without [address] [place] migrainosus, not [address] intractable, [place] [address] migraine type Phone: Phone: P [phone] rocedures Fax: CHEMODENERVATION [phone] MUSCLE MIGRAINE Encounter Details Date Type Department Care Team Description 11/16/2016 Procedure visit [facility] Emanuel Carrillo MD Migraine without status Pain Clinic [address] migrainosus, not [address] intractable, [place] [address] [place] [address] migraine type (Primary [phone] Dx);Migraine without aura and without status migrainosus, [...] How to reach me: Please send a [facility] message to the [facility] or leave a voicemail for my nurse Jennifer at [phone]. Scheduling: Our scheduling phone number is [phone]. Appointment Reminders on your cell phone: Make sure we have your cell phone number, and Text [facility] to [phone]. How to get a medication refill: Five business days before refill needed, please use the [facility] Refill request or contact your pharmacy directly to request medication refills. How to receive your test results: If you have signed up for [facility], you will receive your test results and messages from me this way. Otherwise, you will get a phone call or letter. If you are expecting results and have not heard from my office within 2 weeks of your testing, please send a [facility] message or call my office. Support for many chronic illnesses is available through [facility]: [employer] or [phone]. For questions on nights, weekends or holidays, call the boat camp operator at , and ask for the doctor project management professional for Anesthesia Pain Management. in this encounter Procedure Notes * Emanuel Carrillo MD - 11/16/2016 8:45 AM CDT Associated Order(s): CHEMODENERVATION MUSCLE MIGRAINE Procedure(s): TX CHEMODERVATE FACIAL/TRIGEM/CERV MUSC MIGRAINE Pre-Procedure Diagnose(s): Migraine [...] was used. The injections were as follows: Distribution Manager: 5 units each side Procerus: 5 units [...] Procedure Name Priority Date/Time Associated Diagnosis Comments [place] CHEMODERVATE Routine 11/16/2016 Migraine without status Results [...] was used. The injections were as follows: Distribution Manager: 5 units each side Procerus: 5 units [...]
--- NOTE | 2017-01-01 17:59 | ED Neurological Problem ---
General Chief Complaint: Neurological Problems Stated Complaint: PSEUDOSEIZURES EVERY FEW MINUTES Nursing Triage Note: Patient reports "seizures since yesterday 12/31 at 4 pm." Nursing Sepsis Screen: No Definite Risk Allergies and Home Medications Allergies Coded Allergies: Penicillins (Verified Allergy, Unknown, 11/14/16) amitriptyline (Verified Allergy, Unknown, 11/14/16) amoxicillin (Verified Allergy, Unknown, 10/14/16) clavulanic acid (Verified Allergy, Unknown, 10/14/16) iloperidone (Verified Allergy, Unknown, 11/14/16) morphine (Verified Allergy, Unknown, 11/14/16) quetiapine (Verified Allergy, Unknown, 10/14/16) ropinirole (Verified Allergy, Unknown, 10/14/16) Home Medications Albuterol Sulfate 18 Gm Hfa.aer.ad, 2 PUFF IH QID PRN for SHORTNESS OF BREATH, ( Reported) Atomoxetine HCl 40 Mg Capsule, 40 MG PO DAILY, (Reported) Clonazepam 1 Mg Tablet, 1 MG PO TID PRN for ANXIETY, (Reported) Fluoxetine HCl 10 Mg Capsule, 10 MG PO evary other day, (Reported) Fluticasone Propionate 16 Gm Wheeler.susp, 1-2 SPRAY NSEACH DAILY, (Reported) Fluticasone Propionate 1 Ea Aero, 2 PUFF IH BID, (Reported) Gabapentin 300 Mg Capsule, 900 MG PO TID, (Reported) take 3 (300mg) tabs Hydrocodone/Acetaminophen 1 Each Tablet, 1 TAB PO Q4H PRN for PAIN-MILD TO MODERATE, #30 Ref 0 Prescribed by: ADONIS PABLO on 12/29/16 0850 Lamotrigine 100 Mg Tablet, 100 MG PO BID, (Reported) Lubiprostone 24 Mcg Capsule, 24 MCG PO BID, (Reported) Melatonin 5 Mg Tablet, 10 MG PO HS, (Reported) Nadolol 20 Mg Tablet, 20 MG PO HS, (Reported) Nicotine 1 Each Patch.td24, 1 PATCH TD DAILY, (Reported) [place]-3/Dha/Epa/Fish Oil 1,000 Mg Capsule, 2,000 MG PO DAILY, (Reported) Omeprazole 20 Mg Capsule.dr, 20 MG PO BID, (Reported) Promethazine HCl 25 Mg Tablet, 25 MG PO Q8H PRN for NAUSEA/VOMITING-1ST LINE, ( Reported) Ranitidine HCl 150 Mg Tablet, 150 MG PO BID, (Reported) Risperidone 4 Mg Tablet, 4 MG PO HS, (Reported) Rizatriptan Benzoate 10 Mg Tablet, 10 MG PO UD PRN for HEADACHE, (Reported) take 1 tab on onset of headach, may repeat in 1-2 hours prn, max 2 per day, and 10 per month Sitagliptin Phosphate 100 Mg Tablet, 100 MG PO DAILY, (Reported) Tizanidine HCl 4 Mg Tablet, 4 MG PO TID, (Reported) Topiramate 25 Mg Tablet, 50 MG PO BID, (Reported) take 2 (25mg) tabs Verapamil HCl 120 Mg Tablet.er, 120 MG PO BID, (Reported) Zolpidem Tartrate 10 Mg Tablet, 10 MG PO HS, (Reported) Past Ovzvkfl-Qopbvo-Xzuzzl Hx Patient Social History Alcohol Use: Occasionally Uses Number of Drinks Today: HH Alcohol Beverage of Choice: Wine Recreational Drug Use: Yes Drug of Choice: Past marijuana use Smoking Status: Former Smoker Type Used: Cigarettes 2nd Hand Smoke Exposure: Yes Recent Foreign Travel: No Contact w/Someone Who Travel: No Recent Infectious Disease Expo: No Recent Hopitalizations: No Immunizations Up To Date Tetanus Booster (TDap): Less than 5yrs Seasonal Allergies Seasonal Allergies: Yes Surgeries History of Surgeries: Yes (Right Elbow, Back, Bilat CTR) Surgeries: Appendectomy, Gallbladder, Orthopedic Respiratory History of Respiratory Disorde: Yes Respiratory Disorders: Asthma, Chronic Bronchitis, Sleep Apnea Currently Using CPAP: Yes Currently Using BIPAP: No Cardiovascular History of Cardiac Disorders: Yes (Thickening of Heart Lining, Chronic Sinus Tachycardia) Cardiac Disorders: Hypertension, Palpitations Neurological History of Neurological Disord: Yes Neurological Disorders: Concussion, Headaches /Migraines Reproductive System : No Hx Reproductive Disorders: No Genitourinary History of Genitourinary Disor: No Gastrointestinal History of Gastrointestinal Di: Yes (IBS) Gastrointestinal Disorders: Gastroesophageal Reflux, Chronic Constipation, Irritable Bowel Musculoskeletal History of Musculoskeletal Dis: Yes Musculoskeletal Disorders: Arthritis, Back Injury, Chronic Back Pain Endocrine History of Endocrine Disorders: Yes (pre diabetic) HEENT History of HEENT Disorders: No Loss of Vision: Bilateral Hearing Impairment: Denies Cancer History of Cancer: No Psychosocial History of Psychiatric Problem: Yes (Borderline Personality, Schizoaffective Disorder) Behavioral Health Disorders: Anxiety, PTSD, Bipolar, Depression Integumentary History of Skin or Integumenta: No Blood Transfusions History of Blood Disorders: No Family Medical History Significant Family History: No Pertinent Family Hx Physical Exam Vital Signs Vital Sign - Last 12Hours 01/01/17 16:36 Temp 98.0 Pulse 86 Resp 20 B/P (MAP) 117/65 Pulse Ox 99 O2 Delivery Room Air Capillary Refill : Less Than 3 Seconds Progress/Results/Core Measures Results/Orders Vital Signs/I&O Vital Sign - Last 12Hours 01/01/17 16:36 Temp 98.0 Pulse 86 Resp 20 B/P (MAP) 117/65 Pulse Ox 99 O2 Delivery Room Air Blood Pressure Mean: 82 Progress Note : Time: 17:52 Progress Note I discussed some potential medication changes, primarily increasing Prozac. Patient stated she cannot increase her Prozac because of risk of rafy. I stated that her present condition was not life-threatening and I preferred that her psychiatrist and primary care provider address the issue. Patient became angry and ran out of the emergency room. I asked her to wait for discharge papers but she declined. Departure Impression Impression: Primary Impression: nonepileptic seizure-like activity Disposition: 01 HOME, SELF-CARE Condition: Stable Departure-Patient Inst. Decision time for Depature: 17:51 Referrals: AUDELIA MORALES DO (PCP) Primary Care Physician COLIN GILLTETE (Family) Primary Care Physician Patient Instructions: NO INSTRUCTIONS GIVEN ALEXIS PRADO MD Jan 01, 2017 17:59
[2017-01-01 18:01] VITALS: BP 117/65
== END 2017-01-01 18:07 | disposition home or self-care (01) ==
LOC: EDUNIT# 14:48 → ER 14:51
DX: R25.8 Other abnormal involuntary movements (principal); F41.9 Anxiety disorder, unspecified; F43.10 Post-traumatic stress disorder, unspecified; F31.9 Bipolar disorder, unspecified; K21.9 Gastro-esophageal reflux disease without esophagitis; G43.909 Migraine, unspecified, not intractable, without status migrainosus; J45.909 Unspecified asthma, uncomplicated; I10 Essential (primary) hypertension; Z87.891 Personal history of nicotine dependence; Z90.49 Acquired absence of other specified parts of digestive tract; Z87.828 Personal history of other (healed) physical injury and trauma
CPT/HCPCS: 99283

== ENCOUNTER 2017-01-08 08:04 | Outpatient (RCR) | payer MEDICARE, MEDICAID ==
[~2017-01-08 08:04] MED LIST changes: +ACHD5005; -HYDR-3812; -NCT21TD TD; +NICO-588 TD
== END 2017-04-08 | disposition home or self-care (01) ==
LOC: CARD 08:04
PROVIDERS: ATTEND Internal Medicine Cardiovascular Disease
DX: I10 Essential (primary) hypertension (principal); R00.2 Palpitations; E13.9 Other specified diabetes mellitus without complications; M54.9 Dorsalgia, unspecified; F90.9 Attention-deficit hyperactivity disorder, unspecified type
CPT/HCPCS: 93225; 93226

== ENCOUNTER → 2017-01-10 | Outpatient (CLI) | payer MEDICARE, MEDICAID ==
[~2017-01-10] MED LIST changes: -ACHD5005; +HYDR-3812; +NCT21TD TD; -NICO-588 TD
== END ==
LOC: CARD 09:48
PROVIDERS: ATTEND Physician Assistant
DX: I10 Essential (primary) hypertension (principal); R00.2 Palpitations; E11.9 Type 2 diabetes mellitus without complications; F90.9 Attention-deficit hyperactivity disorder, unspecified type; M54.9 Dorsalgia, unspecified

== ENCOUNTER 2017-01-11 18:35 | Emergency (ER) | payer MEDICARE, MEDICAID ==
[~2017-01-11] VITALS: Ht 165.1 cm; Wt 117.9 kg
--- OUTSIDE RECORDS SUMMARY | 2017-01-11 18:43 | XMS REPORT | Clinical Summary ---
Author Author [facility] Organization [facility] Address Unknown Phone Unavailable Care Team Providers Care Solutions Manager Name Role Phone PCP Unavailable Source Comments Some departments are not documenting in the electronic medical record. If you do not see the information that you expected, contact Release of Information in the Health Information Management department at [phone] for further assistance in locating additional records.[facility] Allergies Active Allergy Reactions Severity Noted Date [...] 40.0-49.9 (HCC) 06/25/2015 Seizures (HCC) 06/24/2015 Convulsion ([facility]) 06/24/2015 Bilateral low back pain with left-sided [...] Procedure Name Priority Date/Time Associated Diagnosis Comments [place] CHEMODERVATE Routine 11/16/2016 Migraine without status Results [...] was used. The injections were as follows: Lab Tester: 5 units each side Procerus: 5 units Frontalis: 10 units each side Temporalis: 20 units each side Occipitalis: 15 units each side Cervical paraspinal: 10 units each side Trapezius: 15 units each side A total of 155u botox were administered. The patient tolerated the procedure well without any apparent difficulties or complications. from Last 3 Months
--- OUTSIDE RECORDS SUMMARY | 2017-01-11 18:44 | XMS REPORT | Encounter Summary ---
Author Author [facility] Organization [facility] Address Unknown Phone Unavailable Care Team Providers Care Tunnel Inspector Name Role Phone PCP Unavailable Reason for Visit * Reason Comments Medication Update Encounter Details Date Type Department Care Team Description 11/13/2016 Telephone [facility] Meseret Caballero MBBS Medication Update [facility] Neurology [address] [place] [address] [place] [address] [phone] Social History Tobacco Use Types Packs/Day Years [...]
--- OUTSIDE RECORDS SUMMARY | 2017-01-11 18:44 | XMS REPORT | Encounter Summary ---
Author Author [facility] Organization [facility] Address Unknown Phone Unavailable Care Team Providers Care Pastry Decorator Name Role Phone PCP Unavailable Encounter Details Date Type Department Care Team Description 10/30/2016 Ancillary Rad Outpatient, Radiologist Diagnosis unknown Orders [address] [place] [address] Social History Tobacco Use Types [...]
--- OUTSIDE RECORDS SUMMARY | 2017-01-11 18:44 | XMS REPORT | Encounter Summary ---
Author Author [facility] Organization [facility] Address Unknown Phone Unavailable Care Team Providers Care Basic Sciences Professor Name Role Phone PCP Unavailable Reason for Visit * Reason Comments Pre-Visit Planning Dr Caballero 11/08/16 Encounter Details Date Type Department Care Team Description 10/25/2016 Telephone [facility] Meseret Caballero MBBS Pre-Visit Planning ([facility] Neurology [address] [facility] [place] 11/08/16) [address] [place] [address] [place] [address] [phone] Social History Tobacco Use Types Packs/Day Years [...] CT and MRI of Neck [facility] [phone] Patient will try to bring disk. Medications, Allergies, History Updated (LB) in this encounter Plan of Treatment Not on fileas of this encounter Visit Diagnoses Not on filein this encounter
--- OUTSIDE RECORDS SUMMARY | 2017-01-11 18:44 | XMS REPORT | Encounter Summary ---
Author Author [facility] Organization [facility] Address Unknown Phone Unavailable Care Team Providers Care Lapping Machine Set Up Operator Name Role Phone PCP Unavailable Reason for Visit * Reason Comments Medication Refill Encounter Details Date Type Department Care Team Description 12/14/2016 Refill [facility] Emanuel Carrillo MD Myalgia ( [facility] [address] Dx);Fibromyalgia;Lum[address] [place] [address] [place] [address] [phone] Social History Tobacco Use Types Packs/Day Years [...]
--- OUTSIDE RECORDS SUMMARY | 2017-01-11 18:44 | XMS REPORT | Encounter Summary ---
Author Author [facility] Organization [facility] Address Unknown Phone Unavailable Care Team Providers Care Personal Financial Planner Name Role Phone PCP Unavailable Reason for Visit * Reason Comments Headache Pt : reports noticed symptoms of headaches 2 years. Encounter Details Date Type Department Care Team Description 11/08/[address] [facility] Meseret Caballero MBBS Chronic migraine without Hospital Neurology [address] aura without status [address] migrainosus, not [address] [place] [address] intractable ([place] [address] Dx);Chronic daily [phone] headache Social History Tobacco Use Types Packs/Day [...] of the medications that have gained their [place] [employer] recommendation for use. As [...] OXYGEN-AIR DELIVERY SYSTEMS (HORIZON NASAL CPAP SYSTEM [facility]) Use as directed. ranitidine(+) (ZANTAC) 150 mg [...] co-ordination of care. Meseret Caballero MD Clinical Poultry Cutter Department of Neurology in this encounter Plan of Treatment Not on fileas of this encounter Visit Diagnoses Diagnosis Chronic migraine without aura without status migrainosus, not intractable - Primary Chronic migraine without aura, without mention of intractable migraine without mention of status migrainosus Chronic daily headache Headache in this encounter
--- OUTSIDE RECORDS SUMMARY | 2017-01-11 18:44 | XMS REPORT | Encounter Summary ---
Author Author [facility] Organization [facility] Address Unknown Phone Unavailable Care Team Providers Care Field Horticultural Specialty Grower Name Role Phone PCP Unavailable Reason for Referral * Pain Authorization Status Reason Specialty Diagnoses / Referred By Referred To Procedures Contact Contact No Auth Needed Anesthesia Pain Diagnoses Emanuel Carrillo MD Icc Spn Anesth Migraine without [address] migrainosus, not [address] intractable, [place], [place] [address] migraine type Phone: Phone: P [phone] rocedures Fax: CHEMODENERVATION [phone] MUSCLE MIGRAINE Reason for Visit * Reason Comments Appointment Encounter Details Date Type Department Care Team Description 11/08/2016 Telephone [facility] Jennifer Canas RN Appointment Pain Procedure [address] [place], [place] [id number] Social History Tobacco Use Types Packs/Day Years [...] was used. The injections were as follows: Mortgage Loan Counselor: 5 units each side Procerus: 5 units [...]
--- OUTSIDE RECORDS SUMMARY | 2017-01-11 18:44 | XMS REPORT | Encounter Summary ---
Author Author [facility] Organization [facility] Address Unknown Phone Unavailable Care Team Providers Care Qualitative Researcher Name Role Phone PCP Unavailable Reason for Referral * Pain Authorization Status Reason Specialty Diagnoses / Referred By Referred To Procedures Contact Contact New Request Diagnoses Emanuel Carrillo MD Migraine without [address] migrainosus, not [address] intractable, [place], [place] unspecified [address] migraine type Phone: Migraine without [phone] aura and without Fax: status [phone] migrainosus, not intractable P rocedures CHEMODENERVATION MUSCLE MIGRAINE * Pain Authorization Status Reason Specialty Diagnoses / Referred By Referred To Procedures Contact Contact No Auth Needed Anesthesia Pain Diagnoses Emanuel Carrillo MD Icc Spn Anesth Migraine without [address] [place] migrainosus, not [address] intractable, [place], [place] [address] migraine type Phone: Phone: P [phone] rocedures Fax: CHEMODENERVATION [phone] MUSCLE MIGRAINE Reason for Visit * Reason Comments Migraine Imm/Inj * Pain Authorization Status Reason Specialty Diagnoses / Referred By Referred To Procedures Contact Contact No Auth Needed Anesthesia Pain Diagnoses Emanuel Carrillo MD Icc Spn Anesth Migraine without [address] [place] migrainosus, not [address] intractable, [place], [place] [address] migraine type Phone: Phone: P [phone] rocedures Fax: CHEMODENERVATION [phone] MUSCLE MIGRAINE Encounter Details Date Type Department Care Team Description 11/16/2016 Procedure visit [place] [facility]est[facility] Emanuel Carrillo MD Migraine without status Pain Clinic [address] migrainosus, not [address] intractable, [place] [address] [place] [address] migraine type (Primary [phone] Dx);Migraine without aura and without status migrainosus, [...] How to reach me: Please send a [place] [facility] message to the [facility] or leave a voicemail for my nurse Jennifer at [phone]. Scheduling: Our scheduling phone number is [phone]. Appointment Reminders on your cell phone: Make sure we have your cell phone number, and Text [facility] to [phone]. How to get a medication refill: Five business days before refill needed, please use the [facility] [employer] Refill request or contact your pharmacy directly to request medication refills. How to receive your test results: If you have signed up for [employer], you will receive your test results and messages from me this way. Otherwise, you will get a phone call or letter. If you are expecting results and have not heard from my office within 2 weeks of your testing, please send a [employer] message or call my office. Support for many chronic illnesses is available through [facility]: [facility] or [phone]. For questions on nights, weekends or holidays, call the pump operator byproducts at [phone], and ask for the doctor food production worker for Anesthesia Pain Management. in this encounter Procedure Notes * Emanuel Carrillo MD - 11/16/2016 8:45 AM CDT Associated Order(s): CHEMODENERVATION MUSCLE MIGRAINE Procedure(s): ND CHEMODERVATE FACIAL/TRIGEM/CERV MUSC MIGRAINE Pre-Procedure Diagnose(s): Migraine [...] was used. The injections were as follows: Physical Biochemist: 5 units each side Procerus: 5 units [...] Procedure Name Priority Date/Time Associated Diagnosis Comments ND CHEMODERVATE Routine 11/16/2016 Migraine without status Results [...] was used. The injections were as follows: Physical Biochemist: 5 units each side Procerus: 5 units [...]
[2017-01-11 18:59] LABS: BASOPHILS % (AUTO) 0 % (0-10); EOSINOPHILS # (AUTO) 0.2 10^3/uL (0.0-0.3); EOSINOPHILS % (AUTO) 2 % (0-10); LYMPHOCYTES # (AUTO) 3.1 X 10^3 (1.0-4.0); LYMPHOCYTES % (AUTO) 29 % (12-44); MEAN CORPUSCULAR HEMOGLOBIN 32 PG (25-34); MEAN CORPUSCULAR HGB CONC 35 G/DL (32-36); MEAN CORPUSCULAR VOLUME 89 FL (80-99); MEAN PLATELET VOLUME 9.5 FL (7.4-10.4); MONOCYTES # (AUTO) 1.1 X 10^3 (0.0-1.0); MONOCYTES % (AUTO) 10 % (0-12); NEUTROPHILS # (AUTO) 6.5 X 10^3 (1.8-7.8); NEUTROPHILS % (AUTO) 59 % (42-75); PLATELET COUNT 356 10^3/uL (130-400); RED BLOOD COUNT 4.19 10^6/uL (4.35-5.85); RED CELL DISTRIBUTION WIDTH 12.5 % (10.0-14.5)
[2017-01-11] MEDS ORDERED: ASPIRIN 81 MG CHEW (CHILDREN'S ASA) PO ONE (19:00)
[2017-01-11 19:06] LABS: BILIRUBIN,URINE NEGATIVE (NEGATIVE); KETONES,URINE NEGATIVE (NEGATIVE); LEUKOCYTE ESTERASE ,URINE 1+ (NEGATIVE); NITRITE,URINE NEGATIVE (NEGATIVE); PH,URINE 5 (5-9); PROTEIN,URINE NEGATIVE (NEGATIVE); UROBILINOGEN,URINE NORMAL (NORMAL)
[2017-01-11 19:07] LABS: PROTHROMBIN TIME PATIENT 13.2 SEC (12.2-14.7)
--- NOTE | 2017-01-11 19:17 | Diagnostic Imaging Report ---
EXAMINATION: Portable erect AP chest at 7:07 p.m. INDICATION: Chest pain. This study is less than optimal due to the patient's body habitus. FINDINGS: The heart size is within normal limits and stable when compared to the CTA chest exam of 10/24/2011. The lungs are generally clear. There is no sign of failure, pneumonia, or pleural effusion. The mediastinum is not widened. The osseous structures are intact. IMPRESSION: There is no evidence for an acute cardiopulmonary abnormality. Dictated by: Dictated on workstation # [id number]
[2017-01-11 19:21] LABS: ALANINE AMINOTRANSFERASE 25 U/L (0-55); AMYLASE 42 U/L (25-125); ANION GAP 9 MMOL/L (5-14); ASPARTATE AMINO TRANSFERASE 18 U/L (5-34); BILIRUBIN,TOTAL 0.3 MG/DL (0.1-1.0); BLOOD UREA NITROGEN 7 MG/DL (7-18); BUN/CREATININE RATIO 10; CALCIUM 9.1 MG/DL (8.5-10.1); CARBON DIOXIDE 23 MMOL/L (21-32); CHLORIDE 105 MMOL/L (98-107); CREATINE KINASE 132 U/L (29-168); CREATININE SERUM 0.73 MG/DL (0.60-1.30); GFR ESTIMATED > 60; GLUCOSE 76 MG/DL (70-105); LIPASE 31 U/L (8-78); POTASSIUM 3.8 MMOL/L (3.6-5.0); SODIUM 137 MMOL/L (135-145)
[2017-01-11 19:24] LABS: WBC,URINE 0-2 /HPF
[2017-01-11 19:40] LABS: TROPONIN I < 0.30 NG/ML (<0.30)
[2017-01-11] MEDS ORDERED: IOHEXOL 350 MG/ML 150 ML (OMNIPAQUE 350) VIAL IV ONE (19:45)
[2017-01-11] MEDS ORDERED: NS 100 ML (IVPB) BAG IV ONE (19:45)
[2017-01-11] MEDS ORDERED: KETOROLAC 30 MG/ML VIAL IVP ONE (19:45)
--- NOTE | 2017-01-11 21:10 | Diagnostic Imaging Report ---
INDICATION: Chest pain, chest tightness, shortness of breath, weak for two days. EXAMINATION: CTA of the chest, 01/11/2017. COMPARISON: 10/24/2011. FINDINGS: There are no central or proximal segmental pulmonary emboli. The thoracic aorta is unremarkable. There is increased soft tissue density noted within the substernal space, likely residual thymic tissue. This is fairly stable from previous examination. No new hilar or mediastinal adenopathy is seen. No pericardial or pleural effusions noted. Patchy atelectasis or scar scattered throughout the lungs. The visualized upper abdomen demonstrates diffuse fatty infiltration of the visualized liver with evidence of previous cholecystectomy. There is no acute osseous abnormality. IMPRESSION: 1. No pulmonary embolus. 2. No acute abnormality appreciated. Dictated by: Dictated on workstation # [id number]
--- NOTE | 2017-01-11 21:30 | ED Chest Pain ---
General Chief Complaint: Chest Pain Stated Complaint: CHEST PAIN;LEFT ARM TINGLING;SOA Nursing Triage Note: PT TO ED 7 W/ S.O. FOR C/O CP, TIGHTNESS, SOB, LT ARM PAIN ET TIGHTNESS ONSET X2 DAYS, WORSE TODAY. ALSO REPORTS RECENT HX OF PRODUCTIVE COUGH, CONGESTION. STATES HAS APPT W/ DR PEARSON FOR CHEMICAL STRESS TEST 01/24 FOR PALPITATIONS. NO OTHER C/O VOICED Nursing Sepsis Screen: No Definite Risk Source: patient (PT TRIES TO TALK IN "MEDICAL" TERMS) History of Present Illness Time seen by provider: 18:45 Initial Comments PT ARRIVES VIA POV WITH FEMALE S.O. C/O "CHEST PAIN RADIATING DOWN MY LEFT ARM WITH TIGHTNESS AND PRESSURE IN MY CHEST AND I FEEL SHORT OF BREATH, WITH TINGLING DOWN MY ARMS" ONGOING FOR 2 DAYS , AND IS CONSTANT--WAS SITTING IN A CHAIR TONIGHT AT WORK WHEN SHE DECIDED TO COME TO ER --STATES SHE WAS IN A TRAINING SESSION TONIGHT AT 1900 NOTHING WORSENS OR IMPROVES PAIN C/O FEELING LIKE HER HEART IS SKIPPING BEATS ALL THE TIME--IS ONGOING PROBLEM FOR QUITE SOME TIME "BUT NO ONE'S EVER PICKED IT UP" --STATES SHE HAS AHD A 48 HOUR HOLTER MONITOR AND HAS AN APPOINTMENT 01/24/[address] HOLDEN FOR A NUCLEAR STRESS TEST FOR HER SYMPTOMS OF PALPITATIONS PT STATES SHE HAS NOT HAD CHEST PAIN BEFORE 2 DAYS AGO NO SWELLING IN FEET / ANKLES OR PAIN IN CALVES NO FEVER/SWEATS/CHILLS C/P PRODUCTIVE COUGH/COLD SYMPTOMS FOR A FEW WEEKS, BUT NOT NOW--SYMPTOMS RESOLVED WITHOUT TREATMENT. 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 Allergies and Home Medications Allergies Coded Allergies: Penicillins (Verified Allergy, Unknown, 11/14/16) amitriptyline (Verified Allergy, Unknown, 11/14/16) amoxicillin (Verified Allergy, Unknown, 10/14/16) clavulanic acid (Verified Allergy, Unknown, 10/14/16) iloperidone (Verified Allergy, Unknown, 11/14/16) morphine (Verified Allergy, Unknown, 11/14/16) quetiapine (Verified Allergy, Unknown, 10/14/16) ropinirole (Verified Allergy, Unknown, 10/14/16) Home Medications Albuterol Sulfate 18 Gm Hfa.aer.ad, 2 PUFF IH QID PRN for SHORTNESS OF BREATH, ( Reported) Atomoxetine HCl 40 Mg Capsule, 40 MG PO DAILY, (Reported) Clonazepam 1 Mg Tablet, 1 MG PO TID PRN for ANXIETY, (Reported) Fluoxetine HCl 10 Mg Capsule, 10 MG PO evary other day, (Reported) Fluticasone Propionate 16 Gm [place].susp, 1-2 SPRAY NSEACH DAILY, (Reported) Fluticasone Propionate 1 Ea Aero, 2 PUFF IH BID, (Reported) Gabapentin 300 Mg Capsule, 900 MG PO TID, (Reported) take 3 (300mg) tabs Hydrocodone/Acetaminophen 1 Each Tablet, 1 TAB PO Q4H PRN for PAIN-MILD TO MODERATE, #30 Ref 0 Prescribed by: ADONIS PABLO on 12/29/16 0850 Lamotrigine 100 Mg Tablet, 100 MG PO BID, (Reported) Lubiprostone 24 Mcg Capsule, 24 MCG PO BID, (Reported) Melatonin 5 Mg Tablet, 10 MG PO HS, (Reported) Nadolol 20 Mg Tablet, 20 MG PO HS, (Reported) Nicotine 1 Each Patch.td24, 1 PATCH TD DAILY, (Reported) Fosters-3/Dha/Epa/Fish Oil 1,000 Mg Capsule, 2,000 MG PO DAILY, (Reported) Omeprazole 20 Mg Capsule.dr, 20 MG PO BID, (Reported) Promethazine HCl 25 Mg Tablet, 25 MG PO Q8H PRN for NAUSEA/VOMITING-1ST LINE, ( Reported) Ranitidine HCl 150 Mg Tablet, 150 MG PO BID, (Reported) Risperidone 4 Mg Tablet, 4 MG PO HS, (Reported) Rizatriptan Benzoate 10 Mg Tablet, 10 MG PO UD PRN for HEADACHE, (Reported) take 1 tab on onset of headach, may repeat in 1-2 hours prn, max 2 per day, and 10 per month Sitagliptin Phosphate 100 Mg Tablet, 100 MG PO DAILY, (Reported) Tizanidine HCl 4 Mg Tablet, 4 MG PO TID, (Reported) Topiramate 25 Mg Tablet, 50 MG PO BID, (Reported) take 2 (25mg) tabs Verapamil HCl 120 Mg Tablet.er, 120 MG PO BID, (Reported) Zolpidem Tartrate 10 Mg Tablet, 10 MG PO HS, (Reported) Review of Systems Constitutional: no symptoms reported, No chills, No diaphoresis, No dizziness, No fever EENTM: See HPI Respiratory: See HPI Cardiovascular: See HPI Gastrointestinal: No Symptoms Reported Genitourinary: No Symptoms Reported Musculoskeletal: see HPI Skin: no symptoms reported Psychiatric/Neurological: See HPI Endocrine: No Symptoms Reported Hematologic/Lymphatic: No Symptoms Reported Past Byjlrtn-Hwqzkd-Gyspyc Hx Patient Social History Alcohol Use: Rarely Uses Number of Drinks Today: Alcohol Beverage of Choice: Wine Recreational Drug Use: Yes (THC, "USED METH IV ONCE" ) Drug of Choice: Past marijuana use Smoking Status: Current Everyday Smoker (2 PPD) Type Used: Cigarettes 2nd Hand Smoke Exposure: Yes Recent Foreign Travel: No Contact w/Someone Who Travel: No Recent Infectious Disease Expo: No Recent Hopitalizations: No Physical Abuse: No Sexual Abuse: No Mistreated: No Fear: No Immunizations Up To Date Tetanus Booster (TDap): Less than 5yrs Seasonal Allergies Seasonal Allergies: Yes Surgeries History of Surgeries: Yes (Right Elbow; LIPOMA REMOVED A FEW TIMES; LUMBAR SPINE FUSION; BILATERAL CARPAL TUNNEL RELEASE; RIGHT ULNAR NERVE SURGERY) Surgeries: Appendectomy, Gallbladder, Orthopedic Respiratory History of Respiratory Disorde: Yes Respiratory Disorders: Asthma, Chronic Bronchitis, Sleep Apnea, COPD Currently Using CPAP: Yes Currently Using BIPAP: No Cardiovascular History of Cardiac Disorders: Yes (Thickening of Heart Lining, Chronic Sinus Tachycardia) Cardiac Disorders: Hypertension, Palpitations Neurological History of Neurological Disord: Yes Neurological Disorders: Concussion, Headaches /Migraines Reproductive System : No (IMPLANON IN PLACE SINCE AGE 19) Hx Reproductive Disorders: No Genitourinary History of Genitourinary Disor: No Gastrointestinal History of Gastrointestinal Di: Yes (IBS) Gastrointestinal Disorders: Gastroesophageal Reflux, Chronic Constipation, Irritable Bowel Musculoskeletal History of Musculoskeletal Dis: Yes Musculoskeletal Disorders: Arthritis, Back Injury, Chronic Back Pain Endocrine History of Endocrine Disorders: Yes (OBESITY) Endocrine Disorders: Diabetes, Non-Insulin dep HEENT History of HEENT Disorders: No Loss of Vision: Bilateral Hearing Impairment: Denies Cancer History of Cancer: No Psychosocial History of Psychiatric Problem: Yes (Borderline Personality, Schizoaffective Disorder; EXTENSIVE PSYCH ISSUES) Behavioral Health Disorders: Anxiety, PTSD, Bipolar, Depression Suicide Risk Score: 0 Integumentary History of Skin or Integumenta: No Blood Transfusions History of Blood Disorders: No Family Medical History Significant Family History: No Pertinent Family Hx Physical Exam Vital Signs Vital Sign - Last 12Hours 01/11/17 18:42 Temp 97.8 Pulse 80 Resp 18 B/P (MAP) 125/75 Pulse Ox 99 O2 Delivery Room Air Capillary Refill : Less Than 3 Seconds General Appearance: No Apparent Distress, WD/WN, Anxious (DRAMATIC, CRYING AT TIMES), Obese, Other (PT HAS APPEARANCE OF A MALE--DRESSED IN MALE CLOTHING, INCLUDING WEARING MEN'S UNDERWEAR, AND HEAD NEARLY SHAVED. 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 II- 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 Norm as Tested Skin: Normal Color, Warm/Dry Progress/Results/Core Measures Results/Orders Lab Results Laboratory Tests Test 01/11/17 18:50 01/11/17 18:54 Range/Units White Blood Count 11.0 4.3-11.0 10^3/uL Red Blood Count 4.19 L 4.35-5.85 10^6/uL Hemoglobin 13.2 11.5-16.0 G/DL Hematocrit 37 35-52 % Mean Corpuscular Volume 89 80-99 FL Mean Corpuscular Hemoglobin 32 25-34 PG Mean Corpuscular Hemoglobin Concent 35 32-36 G/DL Red Cell Distribution Width 12.5 10.0-14.5 % Platelet Count 356 130-400 10^3/uL Mean Platelet Volume 9.5 7.4-10.4 FL Neutrophils (%) (Auto) 59 42-75 % Lymphocytes (%) (Auto) 29 12-44 % Monocytes (%) (Auto) 10 0-12 % Eosinophils (%) (Auto) 2 0-10 % Basophils (%) (Auto) 0 0-10 % Neutrophils # (Auto) 6.5 1.8-7.8 X 10^3 Lymphocytes # (Auto) 3.1 1.0-4.0 X 10^3 Monocytes # (Auto) 1.1 H 0.0-1.0 X 10^3 Eosinophils # (Auto) 0.2 0.0-0.3 10^3/uL Basophils # (Auto) 0.0 0.0-0.1 10^3/uL Prothrombin Time 13.2 12.2-14.7 SEC INR Comment 1.0 0.8-1.4 Activated Partial Thromboplast Time 26 24-35 SEC Sodium Level 137 135-145 MMOL/L Potassium Level 3.8 3.6-5.0 MMOL/L Chloride Level 105 98-107 MMOL/L Carbon Dioxide Level 23 21-32 MMOL/L Anion Gap 9 5-14 MMOL/L Blood Urea Nitrogen 7 7-18 MG/DL Creatinine 0.73 0.60-1.30 MG/DL Estimat Glomerular Filtration Rate > 60 BUN/Creatinine Ratio 10 Glucose Level 76 70-105 MG/DL Calcium Level 9.1 8.5-10.1 MG/DL Magnesium Level 2.0 1.8-2.4 MG/DL Total Bilirubin 0.3 0.1-1.0 MG/DL Aspartate Amino Transf (AST/SGOT) 18 5-34 U/L Alanine Aminotransferase (ALT/SGPT) 25 0-55 U/L Alkaline Phosphatase 127 40-136 U/L Total Creatine Kinase 132 29-168 U/L Creatine Kinase MB 0.8 <6.6 NG/ML Troponin I < 0.30 <0.30 NG/ML B-Type Natriuretic Peptide 16.1 <100.0 PG/ML Total Protein 7.0 6.4-8.2 GM/DL Albumin 4.0 3.2-4.5 GM/DL Amylase Level 42 25-125 U/L Lipase 31 8-78 U/L TSH [facility] Testing 1.28 0.35-4.94 UIU/ML Urine Color YELLOW Urine Clarity CLEAR Urine pH 5 5-9 Urine Specific [place] 1.010 L 1.016-1.022 Urine Protein NEGATIVE NEGATIVE Urine Glucose (UA) NEGATIVE NEGATIVE Urine Ketones NEGATIVE NEGATIVE Urine Nitrite NEGATIVE NEGATIVE Urine Bilirubin NEGATIVE NEGATIVE Urine Urobilinogen NORMAL NORMAL MG/DL Urine Leukocyte Esterase 1+ H NEGATIVE Urine RBC (Auto) NEGATIVE NEGATIVE Urine RBC NONE /HPF Urine WBC 0-2 /HPF Urine Squamous Epithelial Cells 2-5 /HPF Urine Crystals NONE /LPF Urine Bacteria FEW H /HPF Urine Casts NONE /LPF Urine Mucus NEGATIVE /LPF Urine Culture Indicated NO Urine Opiates Screen POSITIVE H NEGATIVE Urine Oxycodone Screen NEGATIVE NEGATIVE Urine Methadone Screen NEGATIVE NEGATIVE Urine Propoxyphene Screen NEGATIVE NEGATIVE Urine Barbiturates Screen NEGATIVE NEGATIVE Ur Tricyclic Antidepressants Screen NEGATIVE NEGATIVE Urine Phencyclidine Screen NEGATIVE NEGATIVE Urine Amphetamines Screen NEGATIVE NEGATIVE Urine Methamphetamines Screen NEGATIVE NEGATIVE Urine Benzodiazepines Screen NEGATIVE NEGATIVE Urine Cocaine Screen NEGATIVE NEGATIVE Urine Cannabinoids Screen NEGATIVE NEGATIVE Micro Results Microbiology 01/11/17 Influenza Types A,B Antigen (PAUL) - Final, Complete My Orders Orders - LORNE CANAS DO Amylase (01/11/17 18:52) Cbc With Automated Diff (01/11/17 18:52) Comprehensive Metabolic Panel (01/11/17 18:52) Creatine Kinase (01/11/17 18:52) Creatine Kinase Mb (01/11/17 18:52) Lipase (01/11/17 18:52) Partial Thromboplastin Time (01/11/17 18:52) Protime With Inr (01/11/17 18:52) Troponin I (01/11/17 18:52) Chest 1 View, Ap/Pa Only (01/11/17 18:52) O2 (01/11/17 18:52) Ekg Tracing (01/11/17 18:52) Aspirin Chewable Tablet (Baby Aspirin Ch (01/11/17 19:00) BNP (01/11/17 18:52) Monitor-Rhythm Ecg Trace Only (01/11/17 18:52) Drug Screen Stat (Urine) (01/11/17 18:52) Magnesium (01/11/17 18:52) Thyroid Analyzer (01/11/17 18:52) Ua Culture If Indicated (01/11/17 18:52) Influenza A And B Antigens (01/11/17 18:52) Ct Angio Chest W (01/11/17 19:34) Ketorolac Injection (Toradol Injection) (01/11/17 19:45) Iohexol Injection (Omnipaque 350 Mg/Ml 1 (01/11/17 19:45) Ns (Ivpb) (Sodium Chloride 0.9% Ivpb Bag (01/11/17 19:45) Pharmacy Communication (Pharmacy Communi (01/11/17 19:42) Medications Given in ED Vital Signs/I&O Vital Sign - Last 12Hours 01/11/17 01/11/17 18:42 21:39 Temp 97.8 Pulse 80 72 Resp 18 20 B/P (MAP) 125/75 Pulse Ox 99 97 O2 Delivery Room Air Room Air Blood Pressure Mean: 92 Progress Note : Progress Note NO DETERIORATION IN PT'S CONDITION DURING ER STAY PAIN IMPROVED WITH TORADOL ECG Initial ECG Impression Time: 18:47 Initial ECG Rate: 81 Initial ECG Rhythm: Normal Sinus Initial ECG Impression: Normal Initial ECG Comparisson: No Previous ECG Available Diagnostic Imaging Comments CXR--NO ACUTE PROCESS, PER RADIOLOGIST REPORT @ 1934 CT CHEST ANGIOGRAM-NO ACUTE PROCESS, PER RADIOLOGIST REPORT @ 2126 Reviewed: Reviewed by Me Departure Impression Impression: Primary Impression: Chest pain Disposition: 01 HOME, SELF-CARE Condition: Stable Departure-Patient Inst. Referrals: AUDELIA MORALES DO (PCP) Primary Care Physician COLIN GILLETTE (Family) Primary Care Physician MALVIN HOLDEN MD Patient Instructions: Chest Pain That Is Not Caused by the Heart (DC), Chest Pain (DC) Add. Discharge Instructions: CONTINUE YOUR REGULAR MEDICATIONS PRESCRIBED FOLLOW UP WITH DR. HOLDEN SCHEDULED FOLLOW UP WITH [facility] IN 2-3 DAYS FOR FURTHER CARE RETURN TO ER IF WORSE All discharge instructions reviewed with patient and/or family. Voiced understanding. LORNE CANAS DO Jan 11, 2017 21:30
[2017-01-11 21:39] VITALS: BP 142/92
== END 2017-01-11 21:39 | disposition home or self-care (01) ==
LOC: EDUNIT# 18:35 → ER 18:37
DX: R07.89 Other chest pain (principal); F41.9 Anxiety disorder, unspecified; F43.10 Post-traumatic stress disorder, unspecified; F31.9 Bipolar disorder, unspecified; E11.9 Type 2 diabetes mellitus without complications; K21.9 Gastro-esophageal reflux disease without esophagitis; K59.09 Other constipation; G43.909 Migraine, unspecified, not intractable, without status migrainosus; I10 Essential (primary) hypertension; J44.9 Chronic obstructive pulmonary disease, unspecified; G47.30 Sleep apnea, unspecified; F17.210 Nicotine dependence, cigarettes, uncomplicated; Z90.49 Acquired absence of other specified parts of digestive tract
CPT/HCPCS: 36415; 71010; 71275; 80053; 80306; 81000; 82150; 82550; 82553; 83690; 83735; 83880; 84443; 84484; 85025; 85610; 85730; 87804; 93005; 96374

== ENCOUNTER → 2017-03-06 | Outpatient (CLI) | payer MEDICARE, MEDICAID ==
[~2017-03-06] MED LIST changes: -NCT21TD TD; +NICO-588 TD
== END ==
LOC: CARD 08:05
PROVIDERS: ATTEND Internal Medicine Cardiovascular Disease
DX: R00.2 Palpitations (principal); R00.0 Tachycardia, unspecified; E13.9 Other specified diabetes mellitus without complications; M54.9 Dorsalgia, unspecified; F90.9 Attention-deficit hyperactivity disorder, unspecified type
CPT/HCPCS: 93306